=== PATIENT | male | born 1950 | race Caucasian/White ===

== ENCOUNTER → 2019-05-10 14:29 | Outpatient (CLI) | payer MEDICARE, OTHER, SELFPAY ==
--- NOTE | ~2019-05-10 | XR_ITS ---
XR chest 2V 05/10/2019 14:54 Indication: Ammonia. Dyspnea. Procedure: 2 view chest Comparison: Comparison to multiple prior studies sequentially, with oldest reviewed study dated 03/08. Findings: Borderline heart size. Bibasilar infiltrates. Possible small effusions. The lungs are hyper inflated which is consistent with, but not diagnostic of chronic obstructive pulmonary disease. No pn eumothorax. No acute osseous abnormality. There is atherosclerosis of the aorta. Impression: 1: Bibasilar infiltrates may represent atelectasis and/or pneumonia. Reviewed, dictated and finalized at location B. ADER Impression: 1: Bibasilar infiltrates may represent atelectasis and/or pneumonia.
== END ==
PROVIDERS: Visit Provider Physician Assistant
DX: J18.9 Pneumonia, unspecified organism (principal); R91.8 Other nonspecific abnormal finding of lung field
CPT/HCPCS: 71046

== ENCOUNTER 2019-08-04 07:24 | Observation (INO) | payer MEDICARE, SELFPAY ==
[2019-08-04] VITALS (15 sets, daily range): BP systolic 103–161; BP diastolic 67–81; PULSE 76–114; RESP 18–28; TEMP 36.6–37.7; O2SAT 93–100; BMI 28.5
--- NOTE | ~2019-08-04 | XR_ITS ---
EXAMINATION: XR chest 2V DATE: 08/04/2019 08:05 INDICATION: Cough and shortness of breath. TECHNIQUE: Frontal and lateral views of the chest were obtained. COMPARISON: Chest 2 views 04/05/2019, chest CT 04/06/2019 FINDINGS: There are mild airspace opacities in the lower lung zones. No pleural effusion or pneumotho rax. The heart size is normal. IMPRESSION: 1. Stable mild airspace opacities in the lower lung zones, consistent with atelectasis versus pneumon ia. Reviewed, dictated and finalized at location A. W[employer] ENGINEERING SPECIALIST IMPRESSION: 1. Stable mild airspace opacities in the lower lung zones, consistent with atel ectasis versus pneumonia.
--- NOTE | 2019-08-04 07:39 | ECG_ITS ---
Measurements Intervals [place] Rate: 112 P: NC: 0 QRS: -23 QRSD: 102 T: 73 QT: 287 QTc: 392 Interpretive Statements ATRIAL FIBRILLATION WITH RAPID VENTRICULAR RESPONSE VENTRICULAR COUPLET AND VENTRICULAR PREMATURE COMPLEXES BORDERLINE R WAVE PROGRESSION, ANTERIOR LEADS NONSPECIFIC ST & T-WAVE ABNORMALITY- LATERAL LEADS BASELINE ARTIFACT- II, III, V3, V5 ABNORMAL ECG Electronically Signed On 08-04-2019 9:29:05 PAY AGENT by Shane Snowden D.O.
[2019-08-04 07:56] LABS: Basophils Percent Auto 0.4 % (0.2-1.2); Eosinophils Absolute Auto 0.3 K/mm3 (0-0.3); Eosinophils Percent Auto 3.2 % (0-4.4); Hematocrit 39.9 % (42.0-52.0); Hemoglobin 12.3 g/dL (14.0-18.0); Immature Granulocyte Absolute 0.08 K/mm3 (0.00-0.031); Immature Granulocyte Percent A 0.8 % (0-0.5); Lymphocytes Absolute Auto 0.44 K/mm3 (0.9-3.2); Lymphocytes Percent Auto 4.2 % (18.3-44.2); Mean Corpuscular HGB Conc 30.8 g/dl (32-36); Mean Corpuscular Hemoglobin 26.7 pg (26-34); Mean Corpuscular Volume 86.7 fl (80-100); Mean Platelet Volume 12.5 fl (7.4-10.4); Monocytes Absolute Auto 0.8 K/mm3 (0.1-0.6); Monocytes Percent Auto 7.5 % (2.6-8.5); Neutrophils Absolute Auto 8.9 K/mm3 (1.3-6.7); Neutrophils Percent Auto 83.9 % (45.5-73.1); Platelet Count Result 158 k/mm3 (150-375); Red Cell Distribution Width 16.8 % (11.5-14.5); White Blood Count 10.6 K/mm3 (4.5-10.0)
[2019-08-04 08:04] LABS: Blood Urea Nitrogen 35 mg/dL (9-20); Calcium 9.5 mg/dL (8.4-10.2); Carbon Dioxide 27 mmol/L (22-30); Chloride 98 mmol/L (98-107); Estimated Glomerular Filt Rate 55; Glucose 135 mg/dL (75-110); Potassium 4.2 mmol/L (3.4-5.0); Sodium 138 mmol/L (137-145)
[2019-08-04] MEDS: methylPREDNISolone SOD SUCC 125 MG VIAL IV PUSH (08:21)
[2019-08-04] MEDS: ALBUTEROL SULFATE NEB 2.5 MG/0.5 ML INH 5 MG INHALATION ×3 (08:46→20:48)
[2019-08-04] MEDS: IPRATROPIUM BR 0.02% INH SOLN 0.5 MG/2.5 ML VIAL INHALATION ×3 (08:46→20:48)
--- NOTE | 2019-08-04 09:16 | ED.SOB ---
HPI - SOB/Dyspnea General Chief Complaint: Shortness of Breath/Dyspnea Stated Complaint: sob Time Seen by Provider: 08/04/19 07:42 History of Present Illness HPI Narrative: Patient is a 68-year-old male who presents the ER with shortness of breath worsening over last 2 days. Associated with fevers and chills as well as body aches. No known sick contacts. Reports productive cough as well as rhinorrhea. He did receive his flu shot. Not typically oxygen dependent. Shortness of breath worsened with any sort of exertion. Patient does have history of COPD and CHF. Related Data Home Medications Medication Instructions Recorded Confirmed acetaminophen 650 mg PO Q4H PRN 04/05/19 08/04/19 budesonide-formoterol [Symbicort] 2 puff INHALATION Q12H 04/05/19 08/04/19 diphenhydramine HCl [Benadryl] 25 mg PO Q12H PRN 04/05/19 08/04/19 ergocalciferol (vitamin D2) 50,000 unit PO WEEKLY 04/05/19 08/04/19 ferrous sulfate 324 mg PO BID 04/05/19 08/04/19 omeprazole 40 mg PO DAILY 04/05/19 08/04/19 tamsulosin [Flomax] 0.4 mg PO DAILY 04/05/19 08/04/19 baclofen 10 mg tablet 10 mg PO DAILY tablet 04/10/19 08/04/19 aspirin 81 mg tablet,delayed 81 mg PO DAILY 05/21/19 08/04/19 release bumetanide 0.5 mg tablet 0.5 mg PO BID 05/21/19 08/04/19 tiotropium bromide 2.5 2 inhalation INHALATION QAM 05/21/19 08/04/19 mcg/actuation mist for inhalation triamcinolone acetonide 0.1 % 1 applic TOPICAL DAILY 05/21/19 08/04/19 topical cream vitamin B12 500 mcg-folic acid 400 1 tablet PO DAILY 05/21/19 08/04/19 mcg tablet cetirizine 10 mg PO DAILY 08/04/19 08/04/19 doxycycline hyclate [Vibramycin] 100 mg PO DAILY 08/04/19 08/04/19 hydroxyzine HCl 10 mg PO HS PRN 08/04/19 08/04/19 metoprolol succinate 50 mg PO DAILY 08/04/19 08/04/19 nystatin 1 applic TOPICAL PRN PRN 08/04/19 08/04/19 potassium chloride 20 meq PO DAILY 08/04/19 08/04/19 Allergies Allergy/AdvReac Type Severity Reaction Status Date / Time Penicillins Allergy Intermediate Skin Verified 08/04/19 07:51 Reaction scopolamine Allergy Mild Confusion Verified 08/04/19 07:51 pepper (genus Capsicum) AdvReac Intermediate Nausea and Verified 08/04/19 07:49 Vomiting levofloxacin AdvReac Mild Swelling Verified 08/04/19 07:51 of the Eye Review of Systems Constitutional: Constitutional: Reports chills, Reports fatigue and Reports fever(s) ENT: Reports nasal congestion and Denies sore throat Cardiovascular: Cardiovascular: Denies chest pain Respiratory: Respiratory: Reports cough, Reports dyspnea and Reports wheezing Gastrointestinal: Gastrointestinal: Denies abdominal pain, Denies nausea and Denies vomiting PMFSH Past Medical History Medical History (Updated 08/04/19 @ 09:17 by Constantino Corbett MD) Abscess BiPAP (biphasic positive airway pressure) dependence BPH (benign prostatic hyperplasia) CHF (congestive heart failure) Chronic diastolic heart failure Cirrhosis COPD (chronic obstructive pulmonary disease) GERD (gastroesophageal reflux disease) MRSA (methicillin resistant Staphylococcus aureus) infection Pneumothorax on left Sleep apnea Surgical History Surgical History (Updated 04/29/19 @ 01:02 by Maya Hayden) History of hip replacement on spine History of revision of total replacement of hip joint Social History Social History Smoking status: Former smoker Smoking end date: 06/06/81 Alcohol intake: former Substance use: never Gender identity (if verbalized by the patient): Male Spiritual care concerns: No Agree to blood products: Yes Exam Narrative: Exam Narrative: GENERAL: ill-appearing, well-nourished, and in mild distress. HEAD: Normocephalic, atraumatic. ENT: Mucous membranes moist. CHEST: Faint diffuse wheezing with frequent coughing. No respiratory distress. HEART: Tachycardic and regular. Normal peripheral pulses. ABDOMEN: Soft, nontender, nondistended. EXTREMITIES:
[2019-08-04 10:11] LABS: Add Urine Microscopic? YES; Appearance Urine Clear (Clear); Bilirubin Urine Negative (Negative); Blood Urine 2+ (Negative); Color Urine Straw (Yellow); Glucose Urine UA Negative (Negative); Ketones Urine Negative (Negative); Leukocyte Esterase Ur Negative LEU/UL (Negative); Mucus Urine Rare /lpf; Nitrate Urine Negative (Negative); Protein Urine Negative (Negative); Urobilinogen Urine Negative mg/dL (<2.0); WBC Urine 0-3 /hpf
--- NOTE | 2019-08-04 10:16 | PC.NURSE ---
This patient, Mason Keys, was admitted to Medical Room 345-01. Patient/family oriented to hospital policies and general routines including ID bracelet, bed and alarms, visiting hours, pain management, procedures, bathroom and other care routines, personal items, smoking policy, room service/diet, and visiting hours. Valuables list has been completed. Information on how to activate the Rapid Response Team has been discussed. Patient/Family are encouraged to report perceived risks to care and to ask questions if they do not understand what they are told or what they should do.
[2019-08-04] MEDS: methylPREDNISolone SOD SUCC 125 MG VIAL 60 MG IV PUSH ×3 (12:00→23:28)
[2019-08-04 12:33] LABS: Glucose Point of Care 132 (65-105)
[2019-08-04] MEDS: FERROUS SULFATE 324 MG TABLET PO (17:40)
[2019-08-04] MEDS: BUMETANIDE 0.5 MG TABLET PO (17:40)
[2019-08-04] MEDS: APIXABAN 5 MG TABLET PO (17:40)
[2019-08-04 18:19] LABS: Glucose Point of Care 147 (65-105)
--- NOTE | 2019-08-04 19:46 | PM.IMHP ---
H&P: HPI History of Present Illness Chief complaint: Cough and shortness of breath for the past 2 days+ Narrative: This is a pleasant 68 year old male with known history of chronic respiratory failure of 1 L of oxygen at night as well as Bipap, COPD, CHF, chronic atrial fibrillation on Eliquis and multiple MRSA infections who presented to the hospital with worsening shortness of breath over the past 2 days, wheezing, and coughing. He reports fevers that started yesterday and has had worsening coughing that has now become productive w/ yellowish sputum. He also reports generalized weakness. 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 His right hip abscesses have not changed and he was told that he should follow up with his orthopedic surgeon in one year. He reports that while he was in the waiting room at [facility] this past week he noticed various patients were coughing nonstop. Tonight the patient denies any chest pain, headache, sore throat, ear pain, palpitations, abdominal pain, dysuria, hematuria, diarrhea, nasuea, vomiting or rectal bleeding. The patient was evaluated in the ER today. CXR obtained today when compared with previous CXR from May 2019 is virtually unchanged. The patient tested positive for Influenza A. The patient is chronically on Doxycline as he has had a history of multiple MRSA infections. He has no other complaints. Review of Systems Review of Systems: All systems reviewed & are unremarkable except as noted in HPI and below PMFSH Past Medical History Medical History (Updated 08/04/19 @ 20:12 by Poncho Dupree MD) Abscess BiPAP (biphasic positive airway pressure) dependence BPH (benign prostatic hyperplasia) CHF (congestive heart failure) Chronic diastolic heart failure Cirrhosis COPD (chronic obstructive pulmonary disease) GERD (gastroesophageal reflux disease) MRSA (methicillin resistant Staphylococcus aureus) infection Pneumothorax on left Sleep apnea Surgical History Surgical History History of hip replacement on spine History of revision of total replacement of hip joint Family History Family History Mother Family history of cardiovascular disease Family history of coronary artery disease Father Family history of liver disease Social History Social History Smoking status: Former smoker Smoking end date: 06/06/81 Alcohol intake: former Substance use: never Gender identity (if verbalized by the patient): Male Spiritual care concerns: No Agree to blood products: Yes Meds Home Medications and Allergies Home Medications Medication Instructions Recorded Confirmed Type acetaminophen 650 mg PO Q4H PRN 04/05/19 08/04/19 History budesonide-formoterol [Symbicort] 2 puff INHALATION Q12H 04/05/19 08/04/19 History diphenhydramine HCl [Benadryl] 25 mg PO Q12H PRN 04/05/19 08/04/19 History ergocalciferol (vitamin D2) 50,000 unit PO WEEKLY 04/05/19 08/04/19 History ferrous sulfate 324 mg PO BID 04/05/19 08/04/19 History omeprazole 40 mg PO DAILY 04/05/19 08/04/19 History tamsulosin [Flomax] 0.4 mg PO DAILY 04/05/19 08/04/19 History baclofen 10 mg tablet 10 mg PO DAILY tablet 04/10/19 08/04/19 History albuterol sulfate 2.5 mg/0.5 mL 2.5 mg INHALATION QID PRN 30 Days 04/24/19 08/04/19 Rx solution for nebulization #60 ml aspirin 81 mg tablet,delayed 81 mg PO DAILY 05/21/19 08/04/19 History release benzonatate 100 mg capsule 100 mg PO TID PRN #90 cap 05/21/19 08/04/19 Rx bumetanide 0.5 mg tablet 0.5 mg PO BID 05/21/19 08/04/19 History tiotropium bromide 2.5 2 inhalation INHALATION QAM 05/21/19 08/04/19 History mcg/actuation mist for inhalation
[2019-08-04] MEDS: GUAIFENESIN/DEXTROMETHORPHAN 10 ML UDC PO (20:27)
[2019-08-05] VITALS (7 sets, daily range): BP systolic 116; BP diastolic 65; PULSE 74–84; RESP 16–20; TEMP 36.4; O2SAT 92–96
[2019-08-05] MEDS: GUAIFENESIN/DEXTROMETHORPHAN 10 ML UDC PO ×2 (01:05→05:50)
[2019-08-05] MEDS: IPRATROPIUM BR 0.02% INH SOLN 0.5 MG/2.5 ML VIAL INHALATION ×2 (01:52→11:08)
[2019-08-05] MEDS: ALBUTEROL SULFATE NEB 2.5 MG/0.5 ML INH 5 MG INHALATION ×2 (01:52→11:08)
[2019-08-05] MEDS: methylPREDNISolone SOD SUCC 125 MG VIAL 60 MG IV PUSH ×2 (05:50→12:11)
[2019-08-05 06:14] LABS: Basophils Percent Auto 0.1 % (0.2-1.2); Hematocrit 36.7 % (42.0-52.0); Hemoglobin 11.3 g/dL (14.0-18.0); Immature Granulocyte Absolute 0.05 K/mm3 (0.00-0.031); Immature Granulocyte Percent A 0.7 % (0-0.5); Lymphocytes Absolute Auto 0.26 K/mm3 (0.9-3.2); Lymphocytes Percent Auto 3.5 % (18.3-44.2); Mean Corpuscular HGB Conc 30.8 g/dl (32-36); Mean Corpuscular Hemoglobin 26.8 pg (26-34); Mean Platelet Volume 12.3 fl (7.4-10.4); Monocytes Absolute Auto 0.3 K/mm3 (0.1-0.6); Monocytes Percent Auto 4.4 % (2.6-8.5); Neutrophils Absolute Auto 6.7 K/mm3 (1.3-6.7); Neutrophils Percent Auto 91.3 % (45.5-73.1); Platelet Count Result 163 k/mm3 (150-375); Red Blood Count 4.22 M/mm3 (4.6-6.20); Red Cell Distribution Width 16.7 % (11.5-14.5); White Blood Count 7.3 K/mm3 (4.5-10.0)
[2019-08-05 06:30] LABS: Blood Urea Nitrogen 38 mg/dL (9-20); Calcium 9.2 mg/dL (8.4-10.2); Carbon Dioxide 27 mmol/L (22-30); Chloride 99 mmol/L (98-107); Estimated CRCL calculation 47 ml/min; Estimated Glomerular Filt Rate 50; Glucose 154 mg/dL (75-110); Sodium 138 mmol/L (137-145)
[2019-08-05 07:33] LABS: Ovalocytes 1+ (NORMAL); Platelet Estimate Adequate (Adequate)
[2019-08-05] MEDS: CYANOCOBALAMIN 500 MCG TABLET PO (08:13)
[2019-08-05] MEDS: METOPROLOL SUCCINATE EXT REL 50 MG TABCR PO (08:13)
[2019-08-05] MEDS: FERROUS SULFATE 324 MG TABLET PO (08:13)
[2019-08-05] MEDS: FOLIC ACID 0.4 MG TABLET PO (08:13)
[2019-08-05] MEDS: POTASSIUM CHLORIDE 20 MEQ TABLET.ER PO (08:15)
[2019-08-05] MEDS: PANTOPRAZOLE 40 MG TABLET PO (08:15)
[2019-08-05] MEDS: ASPIRIN 81 MG ENTERIC TABLET PO (08:15)
[2019-08-05] MEDS: BUMETANIDE 0.5 MG TABLET PO (08:15)
[2019-08-05] MEDS: APIXABAN 5 MG TABLET PO (08:15)
[2019-08-05] MEDS: TAMSULOSIN HCL 0.4 MG CAPSULE PO (08:15)
[2019-08-05] MEDS: ROFLUMILAST 500 MCG TABLET PO (08:15)
[2019-08-05] MEDS: BACLOFEN 10 MG TABLET PO (08:15)
[2019-08-05] MEDS: LORATADINE 10 MG TABLET PO (08:15)
[2019-08-05] MEDS: TRIAMCINOLONE ACET 0.1% CREAM 15 GM TUBE 1 APPLIC TOPICAL (08:16)
[2019-08-05] MEDS: DOXYCYCLINE HYCLATE 100 MG TABLET PO (10:58)
--- NOTE | 2019-08-05 18:55 | PM.DS ---
DS: Diagnosis Admitting Diagnosis Admitting Diagnosis: Influenza due to other identified influenza virus with other respiratory manifestations Discharge Diagnosis (1) Influenza A: Code(s): J10.1 - Influenza due to other identified influenza virus with other respiratory manifestations Status: Acute Assessment and Plan: Date of Service 08/05/19 Mr. Keys is a pleasant 68yo gentleman with history of COPD and chronic hypoxemic respiratory failure (on 1 L home O2 at night with BiPAP) who presented to the ED for evaluation of cough, shortness of breath, fevers and fatigue. He tested positive for Influenza A in the ED. He was admitted for observation overnight and treated supportively with nebulized bronchodilators. He was started on IV solu-medrol in the ER and discharged with a tapered course of prednisone. He did not require any increased oxygen over his normal requirement and was tolerating room air the following morning. CXR showed stable airspace opacities and actually looks improved compared to a chest XR from 05/2019; he is not felt to have a bacterial pneumonia. Cr mildly elevated at 1.4, may be secondary to decreased oral intake in his acute illness; repeat BMP outpatient. He continues to have coarse breath sounds and a productive cough and he was advised that he will likely continue to have these symptoms for several days. He was educated on return to ED instructions if his shortness of breath becomes worse and not relieved by his home nebulizers. He was instructed to follow up with PCP in 1 week. He was hemodynamically stable for discharge 08/05/19 with his home respiratory regimen plus mucinex. (2) Chronic hypoxemic respiratory failure: Code(s): J96.11 - Chronic respiratory failure with hypoxia Status: Chronic Assessment and Plan: Continue home night time oxygen of 1L/min via NC. (3) COPD (chronic obstructive pulmonary disease): Qualifiers: COPD type: unspecified COPD Qualified Code(s): J44.9 - Chronic obstructive pulmonary disease, unspecified Code(s): J44.9 - Chronic obstructive pulmonary disease, unspecified Status: Chronic Assessment and Plan: Continue bronchodilators. 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 He performs wound care with daily dressing changes at home and recently saw his orthopedist earlier this week. His orthopedist instructed this week that he can follow up with him in 1 year. He remains on long-term doxycycline for this. (5) Atrial fibrillation: Qualifiers: Atrial fibrillation type: unspecified Qualified Code(s): I48.91 - Unspecified atrial fibrillation Code(s): I48.91 - Unspecified atrial fibrillation Status: Chronic Assessment and Plan: Rate controlled on his home metoprolol and maintained on home Eliquis therapy. (6) Hx MRSA infection: Code(s): Z86.14 - Personal history of Methicillin resistant Staphylococcus aureus infection Status: Chronic Assessment and Plan: Continue doxycycline PO. DS: Summary Time Spent with Patient Time attestation: Total time spent providing and/or coordinating discharge services: 35 minutes Exam Narrative: Exam Narrative: General: Male sitting on edge of bed in no acute distress. HEENT: Normocephalic, EOMI, oral mucosa moist. Cardiovascular: Rate and rhythm are regular. Respiratory: Diffuse inspiratory and expiratory rhonchi. Respirations even and nonlabored, tolerating room air. Productive cough noted on exam. Abdomen: Soft, non-tender, non-distended, bowel sounds present. Extremities: Peripheral pulses intact.
== END 2019-08-05 13:50 | disposition home or self-care (01) ==
LOC: ANHED 09:23 → ANH3MED 09:33
PROVIDERS: Family Medicine; Admitting Provider Family Medicine; Emergency Provider Emergency Medicine; PCP Family Medicine; Visit Provider Family Medicine
DX: J10.1 Influenza due to other identified influenza virus with other respiratory manifestations (principal); J96.11 Chronic respiratory failure with hypoxia; J44.9 Chronic obstructive pulmonary disease, unspecified; L02.415 Cutaneous abscess of right lower limb; Z86.14 Personal history of Methicillin resistant Staphylococcus aureus infection; I48.20 Chronic atrial fibrillation, unspecified; I50.32 Chronic diastolic (congestive) heart failure; G47.30 Sleep apnea, unspecified; Z79.01 Long term (current) use of anticoagulants; Z79.82 Long term (current) use of aspirin; Z79.899 Other long term (current) drug therapy; Z87.891 Personal history of nicotine dependence; Z88.0 Allergy status to penicillin; Z88.1 Allergy status to other antibiotic agents; Z99.89 Dependence on other enabling machines and devices
CPT/HCPCS: 36415; 71046; 80048; 81001; 85025; 87081; 87804; 93005; 94640; 96374; 96376; 99285; A9270; G0378; J2930

== ENCOUNTER → 2019-08-20 15:51 | Outpatient (CLI) | payer MEDICARE, SELFPAY ==
--- NOTE | ~2019-08-20 | XR_ITS ---
EXAMINATION: XR chest 2V DATE: 08/20/2019 16:06 INDICATION: Shortness of breath TECHNIQUE: Frontal and lateral views of the chest are obtained COMPARISON: 08/04/2019 FINDINGS: Bilateral lower lobe airspace opacities have nearly completely resolved. There is no pleura l effusion or pneumothorax. The cardiomediastinal silhouette is normal. There are bridging osteophyte s at multiple levels in the spine, consistent with diffuse idiopathic skeletal hyperostosis (DISH). IMPRESSION: 1. Near complete resolution of airspace opacities in the lower lobes, consistent with resolving atele ctasis versus pneumonia. Reviewed, dictated and finalized at location A. IMPRESSION: 1. Near complete resolution of airspace opacities in the lower lobes, consisten t with resolving atelectasis versus pneumonia.
== END ==
PROVIDERS: PCP Family Medicine; Visit Provider Nurse Practitioner Family
DX: R06.02 Shortness of breath (principal); R91.8 Other nonspecific abnormal finding of lung field
CPT/HCPCS: 71046

== ENCOUNTER 2019-12-24 10:57 | Inpatient (IN) | payer MEDICARE, SELFPAY ==
[2019-12-24] VITALS (9 sets, daily range): BP systolic 130–153; BP diastolic 75–100; PULSE 33–90; RESP 12–20; TEMP 36.4–36.6; O2SAT 94–100
--- NOTE | ~2019-12-24 | XR_ITS ---
XR chest 1V DATE: 12/24/2019 12:50 INDICATION: COPD. Recent fall and back pain, back spasms. TECHNIQUE: 2 AP views COMPARISON: 08/20/2019 2 view chest 02/07/2018 two-view chest 04/06/2019 CT chest FINDINGS: Borderline heart size. Aortic calcification. No hilar or mediastinal enlargement is evident . There is chronic increased density overlying the right first costochondral junction which is due to p rominent hypertrophic spurring at this location documented on 04/06/2019 CT thorax examination review. There is chronic mild blunting of the left, chronic ankle No pulmonary infiltrate or consolidation, pleural effusion, pulmonary vascular congestion or pneumoth orax is evident. There is suggestion of a vascular stent overlying the terminal aorta. Diffuse osteopenia. Degenerative changes of the thoracic and lumbar spine. IMPRESSION: No active pulmonary disease Reviewed, dictated and finalized at location B. IMPRESSION: No active pulmonary disease
--- NOTE | ~2019-12-24 | CT_ITS ---
EXAMINATION: CT abdomen pelvis w con EXAM DATE: 12/24/2019 14:18 INDICATION: Fall, left-sided back pain, left lower quadrant abdominal pain. TECHNIQUE: Spiral CT of the abdomen and pelvis was performed following intravenous injection of 100 m L Omnipaque 350. Axial, coronal and sagittal images were reviewed. The dose-length product (DLP) fo r this examination was 1453.39 mGy-cm. The exposure was tailored according to patient size (auto mA exposure control), and iterative reconstruction (ASIR) was used as additional dose reduction techniqu e. There is no prior study for comparison. FINDINGS: There is horizontal fracture through the anterior aspect of the T12 vertebral body best see n on the sagittal sequence, finding indicated. There is sclerosis of the fracture margin, or perineph anand response, indicating probable subacute finding, no adjacent paraspinal hematoma or fat stranding. No middle or posterior column involvement. Mild diffuse loss of vertebral body heights. The liver, spleen, adrenal glands and pancreas are unremarkable. The gallbladder is distended but ot herwise unremarkable. There is no biliary duct dilation. Portal and splenic veins are patent. Kidn eys enhance symmetrically. There is no hydronephrosis. There is mild bilateral renal atrophy. There is mild prostatomegaly. Evaluation of prostate and bladder is limited from dense metallic artifact f rom bilateral hip replacements. There is no retroperitoneal or pelvic lymphadenopathy. There is mi ld to moderate scattered arteriosclerotic disease. The appendix is not positively visualized. There is no pericecal inflammatory change to suggest appe ndicitis. The stomach and small bowel are unremarkable. The ascending colon is distended with stoo l, otherwise small to moderate amount of colonic stool. There is mild sigmoid colonic diverticulosis. There is no adjacent inflammatory change to suggest diverticulitis. No free intraperitoneal gas. The heart is normal in size. There are no pericardial or pleural effusions. The lung bases are unr emarkable. There are no osteoblastic or osteolytic lesions identified. IMPRESSION: 1. No acute intra-abdominal findings. 2. Subacute T12 anterior cortex, column fracture. Reviewed, dictated and finalized at location A.
--- NOTE | ~2019-12-24 | XR_ITS ---
XR hip BI 2V w AP pelvis DATE: 12/24/2019 12:50 INDICATION: Bilateral hip pain TECHNIQUE: AP pelvis. AP and lateral views of both hips. COMPARISON: None FINDINGS: There is diffuse osteopenia. There is levoscoliosis and multi-level degenerative disc disease of the lumbar spine. Apparent interbody spinal fusion device at L1-2. The pubic symphysis and sacral iliac joints are intact. No pelvic fracture or bone destruction is det ected. Status post bilateral total hip arthroplasty. No fracture or dislocation or bone destruction of eithe r hip is detected. No hardware failure or displacement is detected. IMPRESSION: Status post bilateral total hip arthroplasty Apparent interbody spinal fusion at L1-L2 Diffuse osteopenia Levoscoliosis and multilevel degenerative disc disease of the lumbar spine Reviewed, dictated and finalized at location B.
--- NOTE | ~2019-12-24 | MR_ITS ---
EXAMINATION: MR lumbar spine wo con DATE: 12/25/2019 12:22 INDICATION: T12 fracture. TECHNIQUE: Magnetic resonance imaging (MRI) of the lumbar spine was performed without intravenous con trast. Sequences included sagittal T2-weighted FSE, sagittal T2-weighted FS FSE, sagittal T1-weighted FSE, and axial T2-weighted FSE. COMPARISON: CT abdomen and pelvis 12/24/2019, lumbar spine MRI 12/06/2017, chest 2 views 08/20/2019 FINDINGS: There is 15 degrees levoscoliosis of lumbar spine. There is 3 mm retrolisthesis of L1 on L2 , L2 on L3, and L3 on L4 and 4 mm anterolisthesis of L4 on L5. There are changes of healed anterior f usion procedure at L1-L2 with interbody device. There is a fracture of anterior superior endplate of T12 with 5 mm distraction, bone marrow edema, and fluid in the cleft. There is mildly decreased disc height at T12-L1 and severely decreased disc height from L2 2-L3 through L4-L5. The distal spinal cor d signal intensity is normal. The conus medullaris is at T12-L1. The following disc levels are specif ically discussed: L1-L2: There is moderate bilateral facet joint osteoarthritis. There is moderate right and mild left neural foraminal stenosis. There is mild central canal stenosis. L2-L3: The disc is bulging. There is severe bilateral facet joint osteoarthritis. There is moderate r ight and mild left neural foraminal stenosis. There is mild central canal stenosis. L3-L4: The disc is bulging. There is severe bilateral facet joint osteoarthritis. There is moderate b ilateral neural foraminal stenosis. There is mild central canal stenosis. L4-L5: The disc is bulging and has an annular fissure. There is severe bilateral facet joint osteoart hritis. There is mild right and moderate left neural foraminal stenosis. There is mild central canal stenosis. L5-S1: There is a central protrusion. There is severe bilateral facet joint osteoarthritis. There is mild bilateral neural foraminal stenosis. There is mild central canal stenosis. IMPRESSION: 1. Acute versus subacute distraction fracture of T12 superior endplate. 2. Severe lumbar spondylosis. 3. Anterior fusion procedure at L1-L2. 4. Lumbar levoscoliosis. Reviewed, dictated and finalized at location A.
[2019-12-24] MEDS: ONDANSETRON INJ 4 MG/2 ML VIAL IV PUSH (12:48)
[2019-12-24] MEDS: MORPHINE SULFATE 4 MG/ML INJ 6 MG IV PUSH (12:48)
--- NOTE | 2019-12-24 12:53 | ED.GENADULT ---
HPI - General Adult General Chief complaint: Fall Stated complaint: fall, l side, back pain Time Seen by Provider: 12/24/19 12:00 Source: patient and family Mode of arrival: ambulatory Limitations: no limitations History of Present Illness HPI narrative: This patient is a 69 year old male with multiple medical problems who presents for evaluation of left lower abdominal pain. Patient states he has had pain to left lower abdomen since last Tuesday. He describes pain as spasms that are gradually worsening. He has a severe spasm on Tuesday and this pain caused him to fall. He states he fell onto the piano stool on right side. He denies hitting his head or LOC. He denies nausea and vomiting. He and his are concerned because he has not had a bowel movement since Tuesday. His passing gas. He has taken miralax, stool softener without relief. His also stopped giving his iron due to his constipation. He denies history of diverticulitis or kidney stone. Related Data Home Medications Medication Instructions Recorded Confirmed acetaminophen 650 mg PO Q4H PRN 04/05/19 12/18/19 budesonide-formoterol [Symbicort] 2 puff INHALATION Q12H 04/05/19 12/18/19 ferrous sulfate 324 mg PO BID 04/05/19 12/18/19 omeprazole 40 mg PO DAILY 04/05/19 12/18/19 tamsulosin [Flomax] 0.4 mg PO DAILY 04/05/19 12/18/19 baclofen 10 mg tablet 10 mg PO DAILY tablet 04/10/19 12/18/19 aspirin 81 mg tablet,delayed 81 mg PO DAILY 05/21/19 12/18/19 release bumetanide 0.5 mg tablet 0.5 mg PO BID 05/21/19 12/18/19 tiotropium bromide 2.5 2 inhalation INHALATION QAM 05/21/19 08/13/19 mcg/actuation mist for inhalation vitamin B12 500 mcg-folic acid 400 1 tablet PO DAILY 05/21/19 08/13/19 mcg tablet cetirizine 10 mg PO DAILY 08/04/19 12/18/19 doxycycline hyclate [Vibramycin] 100 mg PO DAILY 08/04/19 12/18/19 metoprolol succinate 50 mg PO DAILY 08/04/19 12/18/19 nystatin 1 applic TOPICAL PRN PRN 08/04/19 12/18/19 Allergies Allergy/AdvReac Type Severity Reaction Status Date / Time Penicillins Allergy Intermediate Skin Verified 12/18/19 10:35 Reaction scopolamine Allergy Mild Confusion Verified 12/18/19 10:35 tobramycin Allergy Mild Unknown Verified 12/18/19 10:35 pepper (genus Capsicum) AdvReac Intermediate Nausea and Verified 12/18/19 10:35 Vomiting levofloxacin AdvReac Mild Swelling Verified 12/18/19 10:35 of the Eye Review of Systems Review of Systems: All systems reviewed & are unremarkable except as noted in HPI and below Constitutional: Constitutional: Denies chills and Denies fever(s) Gastrointestinal: Gastrointestinal: Reports abdominal pain and Reports constipation Genitourinary: Genitourinary: Reports no additional male genitourinary complaints Musculoskeletal: Musculoskeletal: Reports arthralgias Neurologic: Denies headache(s) and Denies focal weakness PMFSH Past Medical History Medical History Abscess BiPAP (biphasic positive airway pressure) dependence BPH (benign prostatic hyperplasia) CHF (congestive heart failure) Chronic diastolic heart failure Cirrhosis COPD (chronic obstructive pulmonary disease) GERD (gastroesophageal reflux disease) MRSA (methicillin resistant Staphylococcus aureus) infection Pneumothorax on left Sleep apnea Surgical History Surgical History History of hip replacement on spine History of revision of total replacement of hip joint Social History Social History Smoking status: Former smoker Smoking end date: 06/06/81 Alcohol intake: former Substance use: never Gender identity (if verbalized by the patient): Male Spiritual care concerns: No Agree to blood products: Yes Exam Const: General: no acute distress and alert Orientation/consciousness: patient oriented x3 HENMT: Head: normocepha
[2019-12-24 13:02] LABS: Add Urine Microscopic? NO; Appearance Urine Clear (Clear); Bilirubin Urine Negative (Negative); Blood Urine Negative (Negative); Color Urine Straw (Yellow); Glucose Urine UA Negative (Negative); Ketones Urine Negative (Negative); Leukocyte Esterase Ur Negative LEU/UL (Negative); Nitrate Urine Negative (Negative); Protein Urine Negative (Negative); Specific Grav Ur 1.014 (1.001-1.035); Urobilinogen Urine Negative mg/dL (<2.0)
[2019-12-24 13:37] LABS: Basophils Absolute Auto 0.1 K/mm3 (0.0-0.1); Basophils Percent Auto 0.6 % (0.2-1.2); Eosinophils Absolute Auto 0.5 K/mm3 (0-0.3); Eosinophils Percent Auto 5.7 % (0-4.4); Hematocrit 42.4 % (42.0-52.0); Hemoglobin 13.5 g/dL (14.0-18.0); Immature Granulocyte Absolute 0.05 K/mm3 (0.00-0.031); Immature Granulocyte Percent A 0.6 % (0-0.5); Immature Platelet Fraction Pct 12.3 % (0.9-11.2); Lymphocytes Percent Auto 7.7 % (18.3-44.2); Mean Corpuscular HGB Conc 31.8 g/dl (32-36); Mean Corpuscular Hemoglobin 28.9 pg (26-34); Mean Corpuscular Volume 90.8 fl (80-100); Mean Platelet Volume 13.3 fl (7.4-10.4); Monocytes Absolute Auto 0.9 K/mm3 (0.1-0.6); Monocytes Percent Auto 9.4 % (2.6-8.5); Neutrophils Absolute Auto 6.9 K/mm3 (1.3-6.7); Platelet Count Result 139 k/mm3 (150-375); Red Blood Count 4.67 M/mm3 (4.6-6.20); Red Cell Distribution Width 15.4 % (11.5-14.5); White Blood Count 9.1 K/mm3 (4.5-10.0)
[2019-12-24 13:48] LABS: Alanine Aminotransferase 25 U/L (4-50); Alkaline Phosphatase 147 U/L (38-126); Aspartate Amino Transferase 25 U/L (17-59); Bilirubin,Total 0.7 mg/dL (0.2-1.3); Blood Urea Nitrogen 34 mg/dL (9-20); Calcium 9.2 mg/dL (8.4-10.2); Carbon Dioxide 27 mmol/L (22-30); Chloride 100 mmol/L (98-107); Estimated CRCL calculation 52 ml/min; Estimated Glomerular Filt Rate 46; Glucose 118 mg/dL (75-110); INR 1.2; Lipase 50 U/L (23-300); Potassium 4.6 mmol/L (3.4-5.0); Prothrombin Time 14.7 Seconds (11.1-14.7); Sodium 136 mmol/L (137-145)
[2019-12-24 13:49] LABS: Lactic Acid Reflex 0.9 mmol/L (0.7-2.1); Partial Thromboplastin Time 28.6 SECONDS (22.3-36.8)
--- NOTE | 2019-12-24 22:24 | ADMGEN ---
This patient, Mason Keys, was admitted to Medical Room 245-. Patient/family oriented to hospital policies and general routines including ID bracelet, bed and alarms, visiting hours, pain management, procedures, bathroom and other care routines, personal items, smoking policy, room service/diet, and visiting hours. Valuables list has been completed. Information on how to activate the Rapid Response Team has been discussed. Patient/Family are encouraged to report perceived risks to care and to ask questions if they do not understand what they are told or what they should do.
[2019-12-24] MEDS: KETOROLAC 15 MG/ML VIAL (*BKC) IV PUSH (22:48)
[2019-12-24] MEDS: WATER FOR IRRIGATION, STERILE 1,000 ML BOTTLE 1000 ML (22:51)
--- NOTE | 2019-12-24 23:49 | PM.IMHP ---
H&P: HPI History of Present Illness Chief complaint: T12 vertebral fracture. Intractable pain Narrative: Mason Keys is a 69 year old male who has had a past history of having back surgery in the past. The patient has been having left lower quadrant abdominal pain. Since this past Tuesday. Said that the pain has been gradual. He has been having severe muscle pains and has been taking baclofen for that and this pain caused him to fall. He fell onto the panel stool in his right side. He denies hitting his head or losing consciousness. The patient has not had any fever chills. No nausea vomiting or diarrhea the patient stated he has not had a stools since this past Tuesday. CT scan of the abdomen and pelvis was read as no acute intra abdomenal findings. Subacute T12 anterior cortex, common fracture. The ER physician spoke with [facility] neural surgery spine about the CT scan and states that his most likely chronic and if the patient is having a lot of pain he be placed in a TLSO brace to wear and then just follow-up with him outpatient slu spine #[phone]. Has had a history of MRSA and several areas including his spine and his lung and is chronically on antibiotics. The patient was given Zofran, IV Tylenol, IV morphine, IV Dilaudid in the ER and I gave him IV Toradol once he came to the floor. Date of service 12/24/2019 Review of Systems Review of Systems: All systems reviewed & are unremarkable except as noted in HPI and below Constitutional: Constitutional: Reports as per HPI and Reports no additional constitutional complaints Eyes: Eyes: Reports as per HPI and Reports no additional eye complaints ENT: Reports system reviewed and no additional complaints, except as documented and Reports Normal hearing present Cardiovascular: Cardiovascular: Reports no additional cardiovascular complaints Respiratory: Respiratory: Reports no additional respiratory complaints and Reports no additional respiratory complaints Gastrointestinal: Gastrointestinal: Reports as per HPI and Reports no additional gastrointestinal complaints Musculoskeletal: Musculoskeletal: Reports no additional musculoskeletal complaints Integumentary/Breasts: Skin/Breast: Reports system reviewed and no additional complaints, except as docu and Reports as per HPI Neurologic: Reports system reviewed and no additional complaints, except as documented, Reports as per HPI and Reports Normal hearing present Psychiatric: Psychiatric: Reports no additional psychiatric complaints and Reports as per HPI Endocrine: Endocrine: Reports no additional endocrine complaints Hematologic/Lymphatic: Hematologic/Lymphatic: Reports no additional hematologic/lymphatic complaints Allergic/Immunologic: Allergic/Immunologic: Reports no additional allergic/immunologic complaints FORMERLY [facility], [facility] Past Medical History Medical History (Updated 12/25/19 @ 00:17 by Nora Dawn NP) Abscess Atrial fibrillation BiPAP (biphasic positive airway pressure) dependence BPH (benign prostatic hyperplasia) CHF (congestive heart failure) Chronic diastolic heart failure Cirrhosis COPD (chronic obstructive pulmonary disease) GERD (gastroesophageal reflux disease) History of CVA (cerebrovascular accident) History of DVT (deep vein thrombosis) Lipoma Extracted from his neck MRSA (methicillin resistant Staphylococcus aureus) infection The patient had a spinal abscess L1-L2 complicated was septicemia and then had 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 Pneumothorax on left Sleep apnea Family History Family History Mother Family history of cardiovascular disease Family history of coronary artery disease Father Family history of liver disease Social History Social History (Updated 12/25/19 @ 00:06 by Nora Dawn NP) Social History: He lives with his who is a durable power employment attorney for healthcare. He has 2 children. H
[2019-12-25] VITALS (7 sets, daily range): BP systolic 129–150; BP diastolic 67–84; PULSE 61–94; RESP 16–20; TEMP 36.1–36.7; O2SAT 94–99
[2019-12-25] MEDS: ACETAMINOPHEN 325 MG TABLET 650 MG PO (01:27)
[2019-12-25] MEDS: CYCLOBENZAPRINE HCL 10 MG TABLET PO ×3 (06:23→21:51)
[2019-12-25] MEDS: APIXABAN 5 MG TABLET PO ×2 (07:52→16:43)
[2019-12-25] MEDS: ASPIRIN 81 MG ENTERIC TABLET PO (07:52)
[2019-12-25] MEDS: DOCUSATE SODIUM 100 MG CAPSULE PO ×2 (07:52→20:47)
[2019-12-25] MEDS: BUMETANIDE 0.5 MG TABLET PO (07:52)
[2019-12-25] MEDS: DOXYCYCLINE HYCLATE 100 MG TABLET PO (07:52)
[2019-12-25] MEDS: FERROUS SULFATE 324 MG TABLET PO ×2 (07:52→16:43)
[2019-12-25] MEDS: PANTOPRAZOLE 40 MG TABLET PO (07:52)
[2019-12-25] MEDS: POTASSIUM CHLORIDE 20 MEQ TABLET.ER PO (07:52)
[2019-12-25] MEDS: LORATADINE 10 MG TABLET PO (07:53)
[2019-12-25] MEDS: FOLIC ACID 0.4 MG TABLET PO (07:53)
[2019-12-25] MEDS: TAMSULOSIN HCL 0.4 MG CAPSULE PO (07:53)
[2019-12-25] MEDS: TOLNAFTATE 1% POWDER 45 GM BTL 1 APPLIC TOPICAL (07:53)
[2019-12-25] MEDS: CYANOCOBALAMIN 500 MCG TABLET PO (07:53)
[2019-12-25] MEDS: METOPROLOL SUCCINATE EXT REL 50 MG TABCR PO (07:55)
[2019-12-25] MEDS: TRIAMCINOLONE ACET 0.1% CREAM 15 GM TUBE 1 APPLIC TOPICAL (07:55)
[2019-12-25 09:10] LABS: Hematocrit 45.9 % (42.0-52.0); Hemoglobin 14.1 g/dL (14.0-18.0); Mean Corpuscular HGB Conc 30.7 g/dl (32-36); Mean Corpuscular Volume 94.4 fl (80-100); Mean Platelet Volume 12.9 fl (7.4-10.4); Platelet Count Result 144 k/mm3 (150-375); Red Blood Count 4.86 M/mm3 (4.6-6.20); Red Cell Distribution Width 15.3 % (11.5-14.5); White Blood Count 9.2 K/mm3 (4.5-10.0)
[2019-12-25 09:21] LABS: Blood Urea Nitrogen 37 mg/dL (9-20); Calcium 9.2 mg/dL (8.4-10.2); Carbon Dioxide 25 mmol/L (22-30); Chloride 101 mmol/L (98-107); Estimated CRCL calculation 52 ml/min; Estimated Glomerular Filt Rate 46; Glucose 154 mg/dL (75-110); Sodium 136 mmol/L (137-145)
--- NOTE | 2019-12-25 09:25 | PCPTNOTE ---
Pt will not receive TLSO brace until this afternoon per nursing. Will attempt PT evaluation again when TLSO brace received.
--- NOTE | 2019-12-25 10:48 | PM.IMPN ---
Progress Note: A&P Assessment and Plan (1) Closed T12 spinal fracture: Code(s): S22.089A - Unspecified fracture of T11-T12 vertebra, initial encounter for closed fracture Status: Acute Assessment and Plan: He had a mechanical fall on 12/21/19. CT a/p shows subacute T12 anterior cortex column fracture. He has a history of back surgery. [facility] neuro/spine surgery had been contacted and will follow up as an outpatient and recommended MRI of lumbar spine which is ordered. He will be fitted for a TLSO brace today. PT and OT have been consulted and will begin therapy following TLSO brace fitting. Care coordination is following for possible continued rehab upon discharge (2) Intractable low back pain: Code(s): M54.5 - Low back pain Status: Acute Assessment and Plan: Pain is 10/10 with motion and 7/10 when lying still. Continue analgesics and muscle relaxant He received one time dose of toradol which will further be avoided given Eliquis therapy. 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 He had the hardware removed from his right hip due to the MRSA infection. Continue long-term doxycycline (4) Acute kidney injury: Code(s): N17.9 - Acute kidney failure, unspecified Status: Acute Assessment and Plan: He had a slight bump in creatinine compared to baseline. There is no documented history of CKD. Unclear etiology at this point but may be secondary to diuretic therapy. He does have a history of BPH but notes he is urinating regularly and his urine output is adequate. Hold Bumex for now Perform bladder scan to ensure he is not retaining urine Continue to monitor renal function closely Avoid nephrotoxic agents and renally dose medications. (5) Chronic hypoxemic respiratory failure: Code(s): J96.11 - Chronic respiratory failure with hypoxia Status: Chronic Assessment and Plan: He is established with pulmonology. Patient uses 1 liter of oxygen with exertion and 1 liter of oxygen bleed in on BiPAP. Continue supplemental O2 as needed to maintain oxygen saturation range 90 to 94%. Wean to goal (6) COPD (chronic obstructive pulmonary disease): Qualifiers: COPD type: unspecified COPD Qualified Code(s): J44.9 - Chronic obstructive pulmonary disease, unspecified Code(s): J44.9 - Chronic obstructive pulmonary disease, unspecified Status: Chronic Assessment and Plan: Established with pulmonology. Maintaining adequate oxygenation. Continue home regimen including Symbicort 160 2 puffs twice a day, Spiriva Respimat 2.5mcg, Daliresp 500mcg daily, and albuterol neb q.i.d. His daliresp is nonformulary so his is bringing it. Supplemental O2 as noted above. (7) Atrial fibrillation: Qualifiers: Atrial fibrillation type: unspecified Qualified Code(s): I48.91 - Unspecified atrial fibrillation Code(s): I48.91 - Unspecified atrial fibrillation Status: Chronic Assessment and Plan: Rate is controlled. Continue with Eliquis and metoprolol. (8) [place] (obstructive sleep apnea): Code(s): G47.33 - Obstructive sleep apnea (adult) (pediatric) Status: Acute Assessment and Plan: Continue with BiPAP with 1L O2 bleed in. (9) CHF (congestive heart failure): Qualifiers: Heart failure type: unspecified Heart failure chronicity: chronic Qualified Code(s): I50.9 - Heart failure, unspecified Code(s): I50.9 - Heart failure, unspecified Status: Chronic Assessment and Plan: No prior echo available for review. He appears clinically compensated. Continue metoprolol Hold bumex f
--- NOTE | 2019-12-25 12:56 | PC.NURSE ---
Patient's home medication roflumilast sent to pharmacy for clarification to be used during hospital stay.
--- NOTE | 2019-12-25 14:00 | PHAR ---
The patient's home med of Roflumilast 500 MCG has been verified.
--- NOTE | 2019-12-25 14:21 | PCOTNOTE ---
Attempted OT eval 14:15; pt was sleeping. reported he did receive his TLSO so will attempt later.
[2019-12-25] MEDS: polyethylene glycoL 3350 17 GM POWD.PACK PO (16:49)
[2019-12-26] VITALS (7 sets, daily range): BP systolic 128–144; BP diastolic 72–93; PULSE 81–92; RESP 12–20; TEMP 36.4–36.6; O2SAT 94–99
[2019-12-26] MEDS: CYCLOBENZAPRINE HCL 10 MG TABLET PO ×3 (05:34→20:32)
[2019-12-26 05:40] LABS: Blood Urea Nitrogen 34 mg/dL (9-20); Calcium 9.6 mg/dL (8.4-10.2); Carbon Dioxide 25 mmol/L (22-30); Chloride 100 mmol/L (98-107); Estimated CRCL calculation 59 ml/min; Estimated Glomerular Filt Rate 54; Glucose 121 mg/dL (75-110); Potassium 4.1 mmol/L (3.4-5.0); Sodium 136 mmol/L (137-145)
[2019-12-26] MEDS: CYANOCOBALAMIN 500 MCG TABLET PO (09:41)
[2019-12-26] MEDS: ASPIRIN 81 MG ENTERIC TABLET PO (09:41)
[2019-12-26] MEDS: polyethylene glycoL 3350 17 GM POWD.PACK PO (09:41)
[2019-12-26] MEDS: DOCUSATE SODIUM 100 MG CAPSULE PO ×2 (09:41→20:32)
[2019-12-26] MEDS: DOXYCYCLINE HYCLATE 100 MG TABLET PO (09:41)
[2019-12-26] MEDS: APIXABAN 5 MG TABLET PO ×2 (09:41→17:09)
[2019-12-26] MEDS: FOLIC ACID 0.4 MG TABLET PO (09:42)
[2019-12-26] MEDS: PANTOPRAZOLE 40 MG TABLET PO (09:42)
[2019-12-26] MEDS: FERROUS SULFATE 324 MG TABLET PO ×2 (09:42→17:09)
[2019-12-26] MEDS: POTASSIUM CHLORIDE 20 MEQ TABLET.ER PO (09:42)
[2019-12-26] MEDS: LORATADINE 10 MG TABLET PO (09:42)
[2019-12-26] MEDS: METOPROLOL SUCCINATE EXT REL 50 MG TABCR PO (09:42)
[2019-12-26] MEDS: TAMSULOSIN HCL 0.4 MG CAPSULE PO (09:43)
[2019-12-26] MEDS: TRIAMCINOLONE ACET 0.1% CREAM 15 GM TUBE 1 APPLIC TOPICAL (09:43)
--- NOTE | 2019-12-26 10:35 | PM.IMPN ---
Progress Note: A&P Assessment and Plan (1) Closed T12 spinal fracture: Code(s): S22.089A - Unspecified fracture of T11-T12 vertebra, initial encounter for closed fracture Status: Acute Assessment and Plan: He had a mechanical fall on 12/21/19. CT a/p shows subacute T12 anterior cortex column fracture. He has a history of back surgery. [facility]spine surgery had been contacted and will follow up as an outpatient and recommended MRI of lumbar spine which shows acute versus subacute distraction fracture of T12 superior endplate with severe lumbar spondylosis, levoscoliosis, and evidence of anterior fusion procedure at L1-L2. continue TLSO brace. He was fitted for brace yesterday. Continue PT and OT. Care coordination is following for possible continued rehab upon discharge (2) Intractable low back pain: Code(s): M54.5 - Low back pain Status: Acute Assessment and Plan: Pain seems to be modestly improved today. 8/10 at worst and 4/10 at best. He seems to have some improvement of pain with the brace. Continue analgesics and muscle relaxant He received one time dose of toradol which will further be avoided given Eliquis therapy. Continue supportive care and PT/OT. 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 He had the hardware removed from his right hip due to the MRSA infection. Continue long-term doxycycline (4) Acute kidney injury: Code(s): N17.9 - Acute kidney failure, unspecified Status: Acute Assessment and Plan: He had a slight bump in creatinine compared to baseline. There is no documented history of CKD. Unclear etiology at this point but may be secondary to diuretic therapy. He does have a history of BPH but notes he is urinating regularly and his urine output is adequate. Improved today. Will continue to hold Bumex today and resume when clinically appropriate. Bladder scan performed on 12/24 with no evidence of urinary retention. Continue to monitor renal function closely Avoid nephrotoxic agents and renally dose medications. (5) Chronic hypoxemic respiratory failure: Code(s): J96.11 - Chronic respiratory failure with hypoxia Status: Chronic Assessment and Plan: He is established with pulmonology. Patient uses 1 liter of oxygen with exertion and 1 liter of oxygen bleed in on BiPAP. he is maintaining adequate oxygenation on room air today. Continue supplemental O2 as needed to maintain oxygen saturation range 90 to 94%. Wean to goal (6) COPD (chronic obstructive pulmonary disease): Qualifiers: COPD type: unspecified COPD Qualified Code(s): J44.9 - Chronic obstructive pulmonary disease, unspecified Code(s): J44.9 - Chronic obstructive pulmonary disease, unspecified Status: Chronic Assessment and Plan: Established with pulmonology. Maintaining adequate oxygenation. Continue home regimen including Symbicort 160 2 puffs twice a day, Spiriva Respimat 2.5mcg, Daliresp 500mcg daily, and albuterol neb q.i.d. His daliresp is nonformulary so his is bringing it. Supplemental O2 as noted above. (7) Atrial fibrillation: Qualifiers: Atrial fibrillation type: unspecified Qualified Code(s): I48.91 - Unspecified atrial fibrillation Code(s): I48.91 - Unspecified atrial fibrillation Status: Chronic Assessment and Plan: Rate is controlled. Continue with Eliquis and metoprolol. (8) VALENTINA (obstructive sleep apnea): Code(s): G47.33 - Obstructive sleep apnea (adult) (pediatric) Status: Acute Assessment and Plan: Continue with BiPAP with 1L O2 bleed in. (9) CHF (congestive heart failure): Qualifiers: Heart
[2019-12-27] MEDS: CYCLOBENZAPRINE HCL 10 MG TABLET PO ×3 (05:00→21:06)
[2019-12-27 05:27] LABS: Blood Urea Nitrogen 33 mg/dL (9-20); Calcium 9.5 mg/dL (8.4-10.2); Carbon Dioxide 26 mmol/L (22-30); Chloride 100 mmol/L (98-107); Estimated CRCL calculation 55 ml/min; Estimated Glomerular Filt Rate 50; Glucose 116 mg/dL (75-110); Sodium 137 mmol/L (137-145)
[2019-12-27 05:28] VITALS: BP 148/95; PULSE 99; RESP 16; TEMP 36.6; O2SAT 100
[2019-12-27] MEDS: MORPHINE SULFATE 2 MG/ML INJ IV PUSH (06:15)
[2019-12-27 08:38] VITALS: PULSE 99
[2019-12-27] MEDS: ASPIRIN 81 MG ENTERIC TABLET PO (08:38)
[2019-12-27] MEDS: FOLIC ACID 0.4 MG TABLET PO (08:38)
[2019-12-27] MEDS: PANTOPRAZOLE 40 MG TABLET PO (08:38)
[2019-12-27] MEDS: APIXABAN 5 MG TABLET PO ×2 (08:38→17:01)
[2019-12-27] MEDS: POTASSIUM CHLORIDE 20 MEQ TABLET.ER PO (08:38)
[2019-12-27] MEDS: LORATADINE 10 MG TABLET PO (08:38)
[2019-12-27] MEDS: TAMSULOSIN HCL 0.4 MG CAPSULE PO (08:38)
[2019-12-27] MEDS: CYANOCOBALAMIN 500 MCG TABLET PO (08:38)
[2019-12-27] MEDS: DOXYCYCLINE HYCLATE 100 MG TABLET PO (08:38)
[2019-12-27] MEDS: DOCUSATE SODIUM 100 MG CAPSULE PO ×2 (08:38→21:06)
[2019-12-27] MEDS: FERROUS SULFATE 324 MG TABLET PO ×2 (08:38→17:01)
[2019-12-27] MEDS: METOPROLOL SUCCINATE EXT REL 50 MG TABCR PO (08:38)
[2019-12-27] MEDS: TRIAMCINOLONE ACET 0.1% CREAM 15 GM TUBE 1 APPLIC TOPICAL (08:40)
[2019-12-27] MEDS: polyethylene glycoL 3350 17 GM POWD.PACK PO (08:47)
[2019-12-27 09:25] VITALS: PULSE 82; RESP 18; O2SAT 98
[2019-12-27 09:50] VITALS: O2SAT 97
--- NOTE | 2019-12-27 10:08 | PM.IMPN ---
Progress Note: A&P Assessment and Plan (1) Closed T12 spinal fracture: Qualifiers: Encounter type: initial encounter Fracture morphology: other fracture Qualified Code(s): S22.088A - Other fracture of T11-T12 vertebra, initial encounter for closed fracture Code(s): S22.089A - Unspecified fracture of T11-T12 vertebra, initial encounter for closed fracture Status: Acute Assessment and Plan: He had a mechanical fall on 12/21/19. CT a/p shows subacute T12 anterior cortex column fracture. He has a history of back surgery. [facility] neuro[facility]spine surgery had been contacted and will follow up as an outpatient and recommended MRI of lumbar spine which shows acute versus subacute distraction fracture of T12 superior endplate with severe lumbar spondylosis, levoscoliosis, and evidence of anterior fusion procedure at L1-L2. Continue TLSO brace. Continue PT and OT. He will be continuing therapy with home health upon discharge. (2) Intractable low back pain: Code(s): M54.5 - Low back pain Status: Acute Assessment and Plan: He seems to have some improvement of pain with the brace. His pain was improving yesterday, but overnight he had a spasm and episode of severe pain. It seems that his pain is exacerbated by lying flat because he did display some improvement after putting on his brace and moving to the chair. Continue analgesics and muscle relaxant Resume dilaudid. He had requested to transition to oral analgesics only yesterday given his improvement and eagerness to return home, but his pain is more severe today. Plan to discontinue tonight at midnight for hopeful discharge tomorrow. I have requested he be given a recliner to sleep in tonight since lying flat exacerbates pain. He also has a recliner at home which he will use. He received one time dose of toradol which will further be avoided given Eliquis therapy. Continue supportive care and PT/OT. 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 He had the hardware removed from his right hip due to the MRSA infection. Continue long-term doxycycline (4) Acute kidney injury: Code(s): N17.9 - Acute kidney failure, unspecified Status: Acute Assessment and Plan: He had a slight bump in creatinine compared to baseline. There is no documented history of CKD. May be secondary to diuretic therapy. He does have a history of BPH but notes he is urinating regularly and his urine output is adequate. Seems to be fairly stable and close to baseline. Will resume Bumex Bladder scan performed on 12/24 with no evidence of urinary retention. Continue to monitor renal function closely Avoid nephrotoxic agents and renally dose medications. (5) Chronic hypoxemic respiratory failure: Code(s): J96.11 - Chronic respiratory failure with hypoxia Status: Chronic Assessment and Plan: He is established with pulmonology. Patient uses 1 liter of oxygen with exertion and 1 liter of oxygen bleed in on BiPAP. he is maintaining adequate oxygenation on room air today. Continue supplemental O2 as needed to maintain oxygen saturation range 90 to 94%. Wean to goal (6) COPD (chronic obstructive pulmonary disease): Qualifiers: COPD type: unspecified COPD Qualified Code(s): J44.9 - Chronic obstructive pulmonary disease, unspecified Code(s): J44.9 - Chronic obstructive pulmonary disease, unspecified Status: Chronic Assessment and Plan: Established with pulmonology. Maintaining adequate oxygenation. Continue home regimen including Symbicort 160 2 puffs twice a day, Spiriva Respimat 2.5mcg, Daliresp 500mcg daily, and albuterol neb q.i.d. His daliresp is nonformulary so his is bringing it. [place]
--- NOTE | 2019-12-27 10:41 | PCPTNOTE ---
The PT treatment was unable to be completed this AM due to high level of pain. Will attempt PT again this PM. Will continue per Plan of Care duration and frequency.
[2019-12-27 13:45] VITALS: BP 142/86; PULSE 79; RESP 20; TEMP 36.5; O2SAT 99
[2019-12-27 22:00] VITALS: BP 145/90; PULSE 84; RESP 21; TEMP 36.1; O2SAT 100
[2019-12-28] MEDS: CYCLOBENZAPRINE HCL 10 MG TABLET PO (05:29)
[2019-12-28 06:00] VITALS: BP 149/92; PULSE 77; RESP 18; TEMP 36.3; O2SAT 96
[2019-12-28 06:03] LABS: Anion Gap 12.1 mmol/L (7-16); Blood Urea Nitrogen 28 mg/dL (9-20); Calcium 9.6 mg/dL (8.4-10.2); Carbon Dioxide 26 mmol/L (22-30); Chloride 101 mmol/L (98-107); Estimated CRCL calculation 59 ml/min; Estimated Glomerular Filt Rate 54; Glucose 109 mg/dL (75-110); Potassium 4.1 mmol/L (3.4-5.0); Sodium 135 mmol/L (137-145)
--- NOTE | 2019-12-28 08:19 | PM.DS ---
DS: Admitting Diagnosis Admitting Diagnosis Admitting Diagnosis: Unspecified fracture of T11-T12 vertebra, initial encounter for closed fracture DS: Discharge Diagnosis Discharge Diagnosis (1) Closed T12 spinal fracture: Qualifiers: Encounter type: initial encounter Fracture morphology: other fracture Qualified Code(s): S22.088A - Other fracture of T11-T12 vertebra, initial encounter for closed fracture Code(s): S22.089A - Unspecified fracture of T11-T12 vertebra, initial encounter for closed fracture Status: Acute Assessment and Plan: He had a mechanical fall on 12/21/19. CT a/p shows subacute T12 anterior cortex column fracture. [facility] neuro/spine surgery had been contacted by the ED and recommended MRI of lumbar spine which showed acute versus subacute distraction fracture of T12 superior endplate with severe lumbar spondylosis, levoscoliosis, and evidence of anterior fusion procedure at L1-L2. He will follow up as an outpatient with their office. He was fitted for a TLSO brace and will continue using this brace until further follow up. He was evaluated by PT and OT. He will be continuing therapy with home health upon discharge. (2) Intractable low back pain: Code(s): M54.5 - Low back pain Status: Acute Assessment and Plan: He seemed to have some improvement of pain with the brace. His pain was worse when lying flat, therefore he was transitioned to a recliner for sleeping and seemed to do better. His pain was managed with IV and PO narcotic analgesics and cyclobenzaprine. His pain improved and IV dilaudid was discontinued. He was given a very short course of [place] until he can be evaluated by his PCP or [facility] spine surgeon. Continue supportive care and PT/OT. (3) Hx MRSA infection: Code(s): Z86.14 - Personal history of Methicillin resistant Staphylococcus aureus infection Status: Chronic Assessment and Plan: The patient has a history of chronic MRSA infection of the back, and hip. He had the hardware removed from his right hip due to the MRSA infection. Continue long-term doxycycline. There was no evidence of acute infection. (4) Acute kidney injury: Code(s): N17.9 - Acute kidney failure, unspecified Status: Acute Assessment and Plan: He had a slight bump in creatinine compared to baseline. Etiology unclear and there is no documented history of CKD. He does have a history of BPH but his urine output was adequate and there was no evidence of urinary retention on bladder scan. His Bumex was held for a brief time but was then resumed with no worsening of kidney function. Renal function was fairly stable and close to baseline. Repeat BMP in 1 week. (5) Chronic hypoxemic respiratory failure: Code(s): J96.11 - Chronic respiratory failure with hypoxia Status: Chronic Assessment and Plan: He is established with pulmonology. Patient uses 1 liter of oxygen with exertion and 1 liter of oxygen bleed in on BiPAP. He maintained adequate oxygenation on room air and did not require supplemental O2. (6) COPD (chronic obstructive pulmonary disease): Qualifiers: COPD type: unspecified COPD Qualified Code(s): J44.9 - Chronic obstructive pulmonary disease, unspecified Code(s): J44.9 - Chronic obstructive pulmonary disease, unspecified Status: Chronic Assessment and Plan: Established with pulmonology. Continue home regimen including Symbicort 160 2 puffs twice a day, Spiriva Respimat 2.5mcg, Daliresp 500mcg daily, and albuterol neb q.i.d. His daliresp is nonformulary so his brought it in. (7) Atrial fibrillation: Qualifiers: Atrial fibrillation type: unspecified Qualified Code(s): I48.91 - Unspecified atrial fibrillation Code(s): I48.91 - Unspecified atrial fibrillation Status: Chronic Assessment and Plan: Rate is controlled. Continue with Eliquis and metoprolol.
[2019-12-28 08:36] VITALS: PULSE 77
[2019-12-28] MEDS: DOXYCYCLINE HYCLATE 100 MG TABLET PO (08:36)
[2019-12-28] MEDS: PANTOPRAZOLE 40 MG TABLET PO (08:36)
[2019-12-28] MEDS: TAMSULOSIN HCL 0.4 MG CAPSULE PO (08:36)
[2019-12-28] MEDS: METOPROLOL SUCCINATE EXT REL 50 MG TABCR PO (08:36)
[2019-12-28] MEDS: FOLIC ACID 0.4 MG TABLET PO (08:36)
[2019-12-28] MEDS: LORATADINE 10 MG TABLET PO (08:36)
[2019-12-28] MEDS: ASPIRIN 81 MG ENTERIC TABLET PO (08:37)
[2019-12-28] MEDS: FERROUS SULFATE 324 MG TABLET PO (08:38)
[2019-12-28] MEDS: CYANOCOBALAMIN 500 MCG TABLET PO (08:38)
[2019-12-28] MEDS: DOCUSATE SODIUM 100 MG CAPSULE PO (08:38)
[2019-12-28] MEDS: POTASSIUM CHLORIDE 20 MEQ TABLET.ER PO (08:38)
[2019-12-28] MEDS: APIXABAN 5 MG TABLET PO (08:38)
[2019-12-28] MEDS: polyethylene glycoL 3350 17 GM POWD.PACK PO (08:59)
[2019-12-28] MEDS: TRIAMCINOLONE ACET 0.1% CREAM 15 GM TUBE 1 APPLIC TOPICAL (11:20)
== END 2019-12-28 13:00 | disposition home health service (06) | DRG 552 ==
LOC: ANHED 18:24 → ANH2MED 18:34
PROVIDERS: Physician Assistant; Admitting Provider Internal Medicine; Emergency Provider General Practice; PCP Family Medicine; Visit Provider Internal Medicine
DX: S22.088A Other fracture of T11-T12 vertebra, initial encounter for closed fracture (principal); J96.10 Chronic respiratory failure, unspecified whether with hypoxia or hypercapnia; N17.9 Acute kidney failure, unspecified; W19.XXXA Unspecified fall, initial encounter; Z86.14 Personal history of Methicillin resistant Staphylococcus aureus infection; J44.9 Chronic obstructive pulmonary disease, unspecified; I48.91 Unspecified atrial fibrillation; G47.33 Obstructive sleep apnea (adult) (pediatric)
CPT/HCPCS: 36415; 71045; 72148; 73521; 74177; 80048; 80053; 81003; 83605; 83690; 85025; 85027; 85055; 85610; 85730; 94640; 96374; 96375; 96376; 97110; 97116; 97162; 97166; 97530; 97535; 97763; 99285; A9270; G0378; J0131; J1170; J1885; J2270; J2405; Q9967

== ENCOUNTER 2020-07-21 12:02 | Outpatient (CLI) | payer MEDICARE, SELFPAY ==
--- NOTE | ~2020-07-21 | XR_ITS ---
XR chest 2V DATE: 07/21/2020 12:32 INDICATION: Shortness of breath TECHNIQUE: AP and lateral views COMPARISON: 12/24/2019 AP chest FINDINGS: Mild cardiomegaly. Aortic and coronary artery calcification. No hilar or mediastinal enlarg ement. No pulmonary infiltrate or consolidation, pleural effusion or pulmonary vascular congestion or pneumothorax is detected. Diffuse osteopenia. Degenerative spurring of the thoracic spine. Osteoarthritis at both glenohumeral joints. IMPRESSION: Mild cardiomegaly Aortic atherosclerosis, coronary atherosclerosis No active pulmonary disease Reviewed, dictated and finalized at location B. [employer]
== END 2020-07-21 12:03 | disposition home or self-care (01) ==
LOC: ANHIMG 12:06
PROVIDERS: PCP Family Medicine; Visit Provider Nurse Practitioner Family
DX: R06.02 Shortness of breath (principal); R05 Cough; I51.7 Cardiomegaly; I25.10 Atherosclerotic heart disease of native coronary artery without angina pectoris
CPT/HCPCS: 71046

== ENCOUNTER 2020-09-18 13:27 | Outpatient (CLI) | payer MEDICARE, SELFPAY ==
--- NOTE | 2020-09-18 16:45 | WPDSIXMINUTE ---
Six Minute Walk This is a 6 minutes walk test. The test was performed and interpreted in accordance with the 2014 ERS/ATS task force guidelines. The patient used a wheeled walker throughout the study. Findings: The patient's resting room air oxygen saturation measured by pulse oximetry was 94% and her heart rate was 88 bpm. Patient ambulated for 46 meters and oxygen saturation remained 93 to 98%. Heart rate at the end of the study was 95 bpm. There are no prior studies for comparison. Six Minute Walk Procedure Procedure Performed Pulmonary Stress Test (6 min walk)
--- NOTE | 2020-09-18 16:46 | WPDPFTINT ---
PFT Interpretation This is a pulmonary function test with spirometry and plethysmography. The test was performed and results interpreted in accordance with the 2019 and 2005 ATS/ERS Task Force guidelines respectively using the Global Lung Function Initiative-2012 reference equations. Patient demonstrated good effort and cooperation. Reproducibility criteria were met. The quality of the spirometry maneuver was Grade A. The patient was unable to perform the DLCO maneuver Findings: Spirometry: there is decreased maximal expiratory airflow at all lung volumes with concave expiratory flow tracing. The FVC is 1.91 L, 44% predicted. The FEV1 is 0.93 L, 28% predicted. The FEV1: FVC ratio was 49%. Plethysmography: The total lung capacity is 4.76 L, 66% predicted. Functional residual capacity is 3.43 L, 89% predicted. The residual volume is 2.85 L, 113% predicted. In comparison to previous study on 02/21/2018 the pre bronchodilator FVC is unchanged from 1.79 L to 1.91 L. The pre bronchodilator FEV1 is unchanged from 0.92 L to 0.93 L. the total lung capacity is unchanged from 4.77 L to 4.76 L. The functional residual capacity is unchanged from 3.66 L to 3.43 L. The residual volume is unchanged from 2.98 L to 2.85 L. Impression: There is a combined obstructive and restrictive ventilatory abnormality. There are no guidelines to assign the severity of obstruction and restriction with a combined abnormality. In my opinion, given the severely concave expiratory flow tracing, severely decreased FEV1:FVC ratio and moderate restrictive abnormality I would state there is a severe obstructive abnormality and a moderate restrictive abnormality resulting in a very severe decrease in FEV1. when compared to prior pulmonary function test on 02/21/2018 there has been no significant change in FVC, FEV1, total lung capacity, functional residual capacity or residual volume. Clinical correlation is recommended. PFT Procedure Performed PFT Procedure Performed Plethysmography (Lung Vol) Spirometry w/o Bronchodil
== END 2020-09-18 13:28 | disposition home or self-care (01) ==
LOC: ANHPFT 13:28
PROVIDERS: PCP Family Medicine; Visit Provider Family Medicine
DX: J44.9 Chronic obstructive pulmonary disease, unspecified (principal)
CPT/HCPCS: 94375; 94618; 94726

== ENCOUNTER → 2020-10-01 16:16 | Outpatient (CLI) | payer MEDICARE, SELFPAY ==
--- NOTE | ~2020-10-01 | XR_ITS ---
EXAMINATION: XR toe 2nd LT min 2V DATE: 10/01/2020 16:56 INDICATION: Open wound and erythema and swelling at the left second toe. TECHNIQUE: Dorsal plantar, lateral and oblique views of the left second were obtained. COMPARISON: None FINDINGS: Bone alignment is normal. No fracture. No cortical erosions or osteolysis to suggest osteomyelitis. M ild polyarticular osteoarthritis throughout the mid and forefoot large plantar calcaneal spur with ad ditional large amount of heterotopic ossification along the plantar aponeurosis. IMPRESSION: 1. No erosions or osteolysis to suggest osteomyelitis. 2. Large plantar calcaneal spur and large amount of heterotopic ossicles along the plantar aponeurosi s likely sequela of chronic trauma and/or plantar fasciitis. 3. Mild polyarticular osteoarthritis in the mid and forefoot. Reviewed, dictated and finalized at location A. IMPRESSION: 1. No erosions or osteolysis to suggest osteomyelitis. 2. Large plantar calcaneal spur and large amount of heterotopic ossicles along the plantar aponeurosis likely sequela of chronic trauma and/or plantar fasciit is. 3. Mild polyarticular osteoarthritis in the mid and forefoot.
== END ==
PROVIDERS: Visit Provider Physician Assistant Medical
DX: M79.675 Pain in left toe(s) (principal); S91.109A Unspecified open wound of unspecified toe(s) without damage to nail, initial encounter; M77.32 Calcaneal spur, left foot; M19.072 Primary osteoarthritis, left ankle and foot
CPT/HCPCS: 73660

== ENCOUNTER 2020-10-23 13:57 | Outpatient (CLI) | payer MEDICARE, SELFPAY ==
--- NOTE | ~2020-10-23 | US_ITS ---
EXAMINATION: US art doppler w press GENNA DATE: 10/23/2020 14:41 INDICATION: Left second toe ulcer. TECHNIQUE: Segmental pressures and plethysmographic and Doppler waveforms of the brachial and lower e xtremity arteries were obtained. COMPARISON: None. FINDINGS: Right and left brachial artery pressures of 135 mm Hg and 136 mm Hg, respectively, are concordant (no rmal difference <= 30 mmHg). The right high-thigh pressure index is 1.00 (normal > 1.2). The right ankle-brachial index (CRESENCIO) is 1 .12 (normal >= 0.9-1.0). The right great toe-brachial index (TBI) is 0.95 (normal >= 0.65). Arterial Doppler waveforms are at least triphasic in common femoral artery and superficial femoral artery and at least biphasic in popliteal artery and at the ankle. The left high-thigh pressure index is 1.46. The left CRESENCIO is 1.15. The left TBI is 0.76. Arterial Dopp ler waveforms are at least triphasic in common femoral artery and superficial femoral artery and at l east biphasic in popliteal and at the ankle. IMPRESSION: 1. No significant arterial occlusive disease. Reviewed, dictated and finalized at location A.
== END 2020-10-23 13:58 | disposition home or self-care (01) ==
PROVIDERS: PCP Family Medicine; Visit Provider Physician Assistant Medical
DX: S91.109A Unspecified open wound of unspecified toe(s) without damage to nail, initial encounter (principal); R09.89 Other specified symptoms and signs involving the circulatory and respiratory systems
CPT/HCPCS: 93923

== ENCOUNTER 2021-01-09 13:30 | Outpatient (RCR) | payer MEDICARE, SELFPAY ==
[2020-09-12 15:51] VITALS: PULSE 73
== END 2021-01-09 23:59 | disposition home or self-care (01) ==
LOC: ANHCPREHAB 13:30
PROVIDERS: PCP Family Medicine; Visit Provider Family Medicine
DX: J43.9 Emphysema, unspecified (principal)
CPT/HCPCS: 97150; G0424

== ENCOUNTER 2021-01-13 15:08 | Outpatient (RCR) | payer MEDICARE, SELFPAY ==
[2021-01-11 00:03] VITALS: PULSE 73
== END 2021-01-13 15:13 | disposition home or self-care (01) ==
LOC: ANHCPREHAB 15:08
PROVIDERS: PCP Family Medicine; Visit Provider Family Medicine
DX: J43.9 Emphysema, unspecified (principal)
CPT/HCPCS: 97150; G0424

== ENCOUNTER 2021-02-05 12:45 | Outpatient (CLI) | payer MEDICARE, SELFPAY ==
--- NOTE | 2021-02-05 16:21 | WPDSIXMINUTE ---
Six Minute Walk Procedure Procedure Performed Pulmonary Stress Test (6 min walk) Six Minute Walk This is a 6 minute walk test. The test was performed and interpreted in accordance with the 2014 ERS/ATS task force guidelines. Of note the patient used his personal wheeled walker. The patient stopped walking at 5 minutes due to shortness of breath and back pain. Findings: The patient's resting room air oxygen saturation measured by pulse oximetry was 96% and her heart rate was 86 bpm. Patient ambulated for 76 meters and oxygen saturation remained 93 to 97%. Heart rate at the end of the study was 66 bpm. The patient did not qualify for supplemental oxygen at rest or with ambulation. There are no prior studies for comparison.
== END 2021-02-05 12:46 | disposition home or self-care (01) ==
LOC: ANHPFT 12:51
PROVIDERS: PCP Family Medicine; Visit Provider Family Medicine
DX: J43.9 Emphysema, unspecified (principal)
CPT/HCPCS: 94618

== ENCOUNTER → 2021-06-13 08:05 | Outpatient (CLI) | payer MEDICARE, SELFPAY ==
[2021-06-13 22:40] LABS: SARS-CoV-2 RNA PCR Negative
== END ==
PROVIDERS: PCP Family Medicine; Visit Provider Physician Assistant
DX: R05.9 Cough, unspecified (principal); Z20.822 Contact with and (suspected) exposure to COVID-19
CPT/HCPCS: C9803; U0003; U0005

== ENCOUNTER 2022-03-02 14:55 | Emergency (ER) | payer MEDICARE, SELFPAY ==
--- NOTE | ~2022-03-02 | XR_ITS ---
EXAMINATION: XR foot LT min 3V DATE: 03/02/2022 16:03 INDICATION: Left foot pain and swelling TECHNIQUE: Dorsoplantar, lateral, and 2 oblique views of the left foot were obtained. COMPARISON: None. FINDINGS: There is a questionable nondisplaced proximal neck fracture in the fifth proximal phalanx. No additional suspected fracture is identified. There is mild osteoarthritis of multiple interphalang eal joints. There is moderate to severe osteoarthritis of the midfoot. Heterotopic ossification of th e plantar fascia is noted. IMPRESSION: 1. Possible nondisplaced proximal neck fracture of the fifth proximal phalanx. Reviewed, dictated and finalized at location A.
--- NOTE | ~2022-03-02 | XR_ITS ---
EXAMINATION: XR tibia fibula LT 2V INDICATION: Left leg pain TECHNIQUE: Two views of the left tibia and fibula are obtained on four radiographs COMPARISON: None available FINDINGS: Bone alignment is normal. There is no fracture. Calcified atherosclerosis is noted. There i s moderate osteoarthritis of the knee. Heterotopic ossification is noted in the plantar fascia. There is moderate osteoarthritis of the midfoot and ankle. IMPRESSION: 1. No acute osseous abnormality. Reviewed, dictated and finalized at location A.
--- NOTE | ~2022-03-02 | US_ITS ---
EXAMINATION: US venous doppler LE RT DATE: 03/02/2022 16:39 INDICATION: Right lower limb swelling TECHNIQUE: Boudreaux scale images without and with compression and Doppler images of the right lower extre mity veins were obtained. COMPARISON: 12/05/2017 FINDINGS: The right common femoral vein, profunda femoral vein, femoral vein, popliteal vein, posteri or tibial veins, and greater saphenous vein are patent. The peroneal trunk is not evaluated. IMPRESSION: 1. Patent right lower extremity veins. No evidence of deep venous thrombosis. Reviewed, dictated and finalized at location A.
--- NOTE | ~2022-03-02 | XR_ITS ---
EXAMINATION: XR ankle LT min 3V DATE: 03/02/2022 16:02 INDICATION: Left ankle pain TECHNIQUE: Anteroposterior, lateral, mortise, and additional oblique view of the ankle were obtained. COMPARISON: None. FINDINGS: Bone alignment is normal. No acute fracture is identified. There is moderate to severe oste oarthritis of the midfoot and moderate osteoarthritis of the ankle. Ankle soft tissue swelling is pre sent. There is heterotopic ossification of the plantar fascia. IMPRESSION: 1. No acute osseous abnormality. Reviewed, dictated and finalized at location A.
[2022-03-02 15:24] VITALS: BP 138/71; PULSE 77; RESP 17; TEMP 36.4; O2SAT 99
--- NOTE | 2022-03-02 15:55 | ED.LOWEXIN ---
HPI - Extremity Injury (Lower) General Chief Complaint: Extremity Injury, Lower Stated Complaint: left foot injury Time Seen by Provider: 03/02/22 15:39 History of Present Illness HPI Narrative: 71-year-old male with a history of A. fib and neuropathy presents the emergency room for evaluation of left foot and ankle pain. Patient states on Tuesday he was getting out of bed when his foot got stuck in the foot of the iron bed frame. Patient was not experiencing any pain following the injury until today. Did notice significant bruising and soft tissue swelling to the foot and ankle. Today began experiencing redness and warmth to his calf and sue area. Patient states he began experiencing pain to the lateral side of his foot today and is having difficulty ambulating. Related Data Home Medications Medication Instructions Recorded Confirmed ferrous sulfate 324 mg (65 mg 324 mg PO BID 04/05/19 03/02/22 iron) tablet,delayed release omeprazole 40 mg capsule,delayed 40 mg PO DAILY 04/05/19 03/02/22 release tamsulosin 0.4 mg capsule (Flomax) 0.4 mg PO DAILY 04/05/19 03/02/22 aspirin 81 mg tablet,delayed 81 mg PO DAILY 05/21/19 03/02/22 release vitamin B12 500 mcg-folic acid 400 1 tablet PO DAILY 05/21/19 03/02/22 mcg tablet cetirizine 10 mg tablet 10 mg PO DAILY 08/04/19 03/02/22 acetaminophen 325 mg capsule 325 mg PO Q6H PRN Pain 03/17/20 03/02/22 diphenhydramine HCl 25 mg capsule 25 mg PO BID 09/12/20 03/02/22 (Benadryl) naphazoline-pheniramine 0.46956 1 drop ophthalmic (eye) Q6H PRN 09/12/20 03/02/22 %-0.315 % eye drops (Opcon-A) Dry Eyes bumetanide 0.5 mg tablet 0.5 mg PO BID 11/17/20 03/02/22 magnesium oxide 400 mg PO BID 03/04/21 03/02/22 pyridoxine (vitamin B6) 100 mg 100 mg PO DAILY 03/04/21 03/02/22 tablet gabapentin 100 mg capsule 200 mg PO QHS 12/17/21 03/02/22 folic acid 1 mg tablet 1 mg PO DAILY 03/02/22 03/02/22 spironolactone 25 mg tablet 12.5 mg PO DAILY 03/02/22 03/02/22 Allergies Allergy/AdvReac Type Severity Reaction Status Date / Time Penicillins Allergy Intermediate Skin Verified 03/02/22 15:28 Reaction scopolamine Allergy Mild Confusion Verified 03/02/22 15:28 tobramycin Allergy Mild Unknown Verified 03/02/22 15:28 pepper (genus Capsicum) AdvReac Intermediate Nausea and Verified 03/02/22 15:28 Vomiting levofloxacin AdvReac Mild Swelling Verified 03/02/22 15:28 of the Eye Review of Systems Review of Systems: CONSTITUTIONAL: Denies fever, chills, or sweats. EYES: Denies visual changes, redness, or discharge. ENT: Denies rhinorrhea, congestion, sore throat, or otalgia. CARDIOVASCULAR: Denies chest pain, palpitations, or edema. RESPIRATORY: Denies cough or dyspnea. GASTROINTESTINAL: Denies abdominal pain, nausea, vomiting, or diarrhea. GENITOURINARY: Denies dysuria or hematuria. SKIN: Swelling to left calf MUSCULOSKELETAL: Left foot and left ankle pain NEUROLOGIC: Denies headache, numbness, dizziness, or weakness. PSYCHIATRIC: Denies anxiety or depression. [facility] Past Medical History Medical History (Updated 03/02/22 @ 17:37 by Bandar Robles, JOHN) Abscess Atrial fibrillation rate controlled BiPAP (biphasic positive airway pressure) dependence BPH (benign prostatic hyperplasia) CHF (congestive heart failure) has recovered had with atrial fib Chronic diastolic heart failure Cirrhosis COPD (chronic obstructive pulmonary disease) GERD (gastroesophageal reflux disease) History of CVA (cerebrovascular accident) History of DVT (deep vein thrombosis) Lipoma Extracted from his neck MRSA (methicillin resistant Staphylococcus aureus) infection The patient had a spinal abscess L1-L2 complicated was septicemia and then had 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 Pneumothorax on left Sleep apnea Surgical History Surgical History History of back surgery History of hip replacement on spine History of revision of total replacement of hip
[2022-03-02] MEDS: ACETAMINOPHEN 500 MG TABLET 1000 MG PO (17:56)
[2022-03-02 18:04] VITALS: BP 135/89; PULSE 89; RESP 19; O2SAT 98
== END 2022-03-02 18:05 | disposition home or self-care (01) ==
PROVIDERS: Emergency Provider Nurse Practitioner Family; PCP Emergency Medicine
DX: S92.515A Nondisplaced fracture of proximal phalanx of left lesser toe(s), initial encounter for closed fracture (principal); I48.91 Unspecified atrial fibrillation; I50.30 Unspecified diastolic (congestive) heart failure; K74.60 Unspecified cirrhosis of liver; J44.9 Chronic obstructive pulmonary disease, unspecified; N40.0 Benign prostatic hyperplasia without lower urinary tract symptoms; G47.30 Sleep apnea, unspecified; K21.9 Gastro-esophageal reflux disease without esophagitis; Z86.73 Personal history of transient ischemic attack (TIA), and cerebral infarction without residual deficits; Z86.718 Personal history of other venous thrombosis and embolism; Z86.14 Personal history of Methicillin resistant Staphylococcus aureus infection; Z96.649 Presence of unspecified artificial hip joint; Z87.891 Personal history of nicotine dependence; Z79.82 Long term (current) use of aspirin; Z79.01 Long term (current) use of anticoagulants; W23.1XXA Caught, crushed, jammed, or pinched between stationary objects, initial encounter
CPT/HCPCS: 73590; 73610; 73630; 93971; 99284; A9270

== ENCOUNTER 2022-03-22 16:45 | Outpatient (CLI) | payer MEDICARE, SELFPAY ==
--- NOTE | ~2022-03-22 | US_ITS ---
EXAMINATION: US venous doppler [facility] DATE: 03/22/2022 17:45 INDICATION: ACUTE EMBOLISM AND TRHOMBOSIS OF UNSPECIFIED . Left lower extremity pain and swelling. TECHNIQUE: Grayscale images without and with compression and Doppler images of the left lower extremi ty veins were obtained. COMPARISON: None FINDINGS: The left common femoral vein, profunda femoral vein, femoral vein, popliteal vein, peroneal vein, pos terior tibial veins, gastrocnemius vein, lesser saphenous and greater saphenous vein are patent. Extr emity edema. IMPRESSION: 1. Patent left lower extremity veins. No evidence of deep venous thrombosis. Reviewed, dictated and finalized at location K.
== END 2022-03-22 16:46 | disposition home or self-care (01) ==
LOC: ANHIMG 16:50
PROVIDERS: PCP Emergency Medicine; Visit Provider Podiatrist Foot & Ankle Surgery
DX: I74.9 Embolism and thrombosis of unspecified artery (principal); M79.89 Other specified soft tissue disorders
CPT/HCPCS: 93971

== ENCOUNTER 2022-06-04 01:23 | Day surgery (SDC) | payer MEDICARE, SELFPAY ==
[2022-05-26 12:18] VITALS: BMI 36.8
[2022-06-04 11:54] VITALS: BP 138/73; PULSE 77; RESP 20; O2SAT 97; BMI 11.2
--- NOTE | 2022-06-04 11:58 | PM.HPGS ---
History of Present Illness History of Present Illness Consent: Risks, benefits, and alternatives have been discussed and questions answered. Patient agrees to proceed with procedure. Chief complaint: Hx of colon polyps Narrative: Mason Keys is a 71 year old male Presents for screening colonoscopy. Patient has a history of left-sided ulcerative colitis in the distal 40cm of the colon. Most recent colonoscopy several years ago revealed this to be in remission. He does have a prior history of an inflammatory polyp. Patient denies any ongoing pain. His bowel habits are normal. He denies abdominal pain. Patient presents today for surveillance colonoscopy. Patient also has a history of cirrhosis felt to be attributed to RAYGOZA. Patient currently followed at [facility] in felt to be stable and compensated. Review of Systems Review of Systems: Review of systems noncontributory. [facility] Past Medical History Medical History (Updated 05/10/22 @ 12:12 by Edgardo Monson PA-C) Abscess Atrial fibrillation rate controlled BiPAP (biphasic positive airway pressure) dependence BPH (benign prostatic hyperplasia) CHF (congestive heart failure) has recovered had with atrial fib Chronic diastolic heart failure Cirrhosis COPD (chronic obstructive pulmonary disease) GERD (gastroesophageal reflux disease) History of CVA (cerebrovascular accident) History of DVT (deep vein thrombosis) Lipoma Extracted from his neck MRSA (methicillin resistant Staphylococcus aureus) infection The patient had a spinal abscess L1-L2 complicated was septicemia and then had 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 He has 2 children. He retired from the [employer]. Patient used to smoke in [place] and used to drink socially. He desires to be a full code. No marijuana or illicit drugs. Smoking packs per day: 1 Smoking cigarettes per day: 20.0 Years smoked: 7 Smoking pack-years: 7.00 Smoking status: Never smoker Tobacco type: cigarettes Smoking end date: 06/06/81 Alcohol intake: former Substance use: never Substance use type: does not use Lack of Transportation: No Lack of Food: Never True Current Housing: I Have Housing Concerned About Future Housing: No Difficulty Paying Gas/Electric Bills: No Difficulty Paying for Meds: No Currently Unemployed: No Education: Associate Degree Difficulty w/ Childcare or Family Care: No Living arrangements: with family Gender identity (if verbalized by the patient): Male Spiritual care concerns: No Agree to blood products: Yes Meds Home Medications and Allergies Home Medications Medication Instructions Recorded Confirmed Type ferrous sulfate 324 mg (65 mg 324 mg PO BID 04/05/19 05/26/22 History iron) tablet,delayed release omeprazole 40 mg capsule,delayed 40 mg PO DAILY 04/05/19 05/26/22 History release tamsulosin 0.4 mg capsule (Flomax) 0.4 mg PO DAILY 04/05/19 05/26/22 History aspirin 81 mg tablet,delayed 81 mg PO DAILY 05/21/19 05/26/22 History release vitamin B12 500 mcg-folic acid 400 1 tablet PO DAILY 05/21/19 05/26/22 History mcg tablet cetirizine 10 mg tablet 10 mg PO DAILY 08/04/19 05/26/22 History acetaminoph
[2022-06-04] MEDS: LACTATED RINGERS 1,000 ML 150 ML IV CONT (12:09)
--- NOTE | 2022-06-04 12:12 | WPDANESEPPF ---
Anes - Initial Pre Proc Eval Procedure: Operation Date: 06/04/22 13:15 Proposed Procedures p Screening Colonoscopy - Zhang Alarcon MD Date/Time: 06/04/22 12:12 Surgeon: Zhang Alarcon MD Pre Op Diagnosis: Hx of colon polyps Patient Data Age: 71 Gender: M Height: 1.8 m Weight: 36.8 kg Last Vital Signs Pulse 77 06/04/22 11:54 Resp 20 06/04/22 11:54 BP 138/73 06/04/22 11:54 Pulse Ox 97 06/04/22 11:54 O2 Del Method Room Air 06/04/22 11:54 Allergies Allergy/AdvReac Type Severity Reaction Status Date / Time levofloxacin Allergy Intermediate Swelling Verified 06/04/22 11:51 of the Eye Penicillins Allergy Intermediate Hives Verified 06/04/22 11:51 scopolamine Allergy Mild Confusion Verified 06/04/22 11:51 tobramycin Allergy Mild Hallucinati Verified 06/04/22 11:51 ng pepper (genus Capsicum) AdvReac Intermediate Nausea and Verified 06/04/22 11:51 Vomiting Home Medications Medication Instructions Recorded Confirmed Type ferrous sulfate 324 mg (65 mg 324 mg PO BID 04/05/19 05/26/22 History iron) tablet,delayed release omeprazole 40 mg capsule,delayed 40 mg PO DAILY 04/05/19 05/26/22 History release tamsulosin 0.4 mg capsule (Flomax) 0.4 mg PO DAILY 04/05/19 05/26/22 History aspirin 81 mg tablet,delayed 81 mg PO DAILY 05/21/19 05/26/22 History release vitamin B12 500 mcg-folic acid 400 1 tablet PO DAILY 05/21/19 05/26/22 History mcg tablet cetirizine 10 mg tablet 10 mg PO DAILY 08/04/19 05/26/22 History acetaminophen 325 mg capsule 325 mg PO Q6H PRN Pain 03/17/20 05/26/22 History diphenhydramine HCl 25 mg capsule 25 mg PO DAILY 09/12/20 05/26/22 History (Benadryl) naphazoline 0.75216 %-pheniramine 1 drop ophthalmic (eye) Q6H PRN 09/12/20 05/26/22 History 0.315 % eye drops (Opcon-A) Dry Eyes albuterol sulfate 2.5 mg/3 mL See Rx Instructions .Route 09/22/20 05/26/22 Rx (0.083 %) solution for nebulization .COMPLEX #120 vials bumetanide 0.5 mg tablet 0.5 mg PO BID 11/17/20 05/26/22 History inhalational spacing device #10 ea 11/17/20 05/10/22 Rx (Aerochamber MV spacer) magnesium oxide 400 mg PO BID 03/04/21 05/26/22 History pyridoxine (vitamin B6) 100 mg 100 mg PO DAILY 03/04/21 05/26/22 History tablet doxycycline hyclate 100 mg capsule 100 mg PO DAILY #90 caps 12/17/21 05/26/22 Rx (Vibramycin) gabapentin 100 mg capsule 200 mg PO QHS 12/17/21 05/26/22 History folic acid 1 mg tablet 1 mg PO DAILY 03/02/22 05/26/22 History benzonatate 100 mg capsule 200 mg PO TID PRN cough #90 caps 05/12/22 05/26/22 Rx sodium,potassium,mag sulfates 17.5 See Rx Instructions PO .COMPLEX 05/18/22 06/04/22 Rx gram-3.13 gram-1.6 gram oral soln #354 mL (Suprep Bowel Prep Kit) apixaban 5 mg tablet (Eliquis) 5 mg PO BID 05/26/22 05/26/22 History budesonide 160 mcg-glycopyr 9 2 inh inhalation BID 05/26/22 05/26/22 History mcg-formot 4.8 mcg/actuation HFA inhaler (Breztri Aerosphere) ergocalciferol (vitamin D2) 1,250 50,000 unit PO WEEKLY 05/26/22 05/26/22 History mcg (50,000 unit) capsule metoprolol succinate 50 mg 100 mg PO DAILY 05/26/22 05/26/22 History tablet,extended release 24 hr nystatin 100,000 unit/gram topical 1 applic topical BID PRN Rash 05/26/22 05/26/22 History cream potassium chloride 20 mEq 20 meq PO DAILY 05/26/22 05/26/22 History tablet,extended release roflumilast 500 mcg tablet 500 mcg PO DAILY 05/26/22 05/26/22 History (Daliresp) baclofen 10 mg tablet 10 mg PO DAILY #90 tabs 06/01/22 06/04/22 Rx spironolactone 25 mg tablet 12.5 mg PO DAILY #45 tabs 06/01/22 06/04/22 Rx triamcinolone acetonide 0.1 % 1 applic topical DAILY #453.6 grams 06/01/22 06/04/22 Rx topical cream Patient hx anesthesia problems: none Family hx anesthesia problems: none Results Review: All pre-operative results and documents have been reviewed as part of the pre-operative evaluation. [facility] Past Medical History Medical History (Updated 05/10
[2022-06-04 13:21] LABS: Glucose Point of Care 107 mg/dl (65-105)
[2022-06-04 13:42] VITALS: BP 102/67; BP 94/62; PULSE 70; PULSE 73; RESP 17; RESP 22; O2SAT 96; O2SAT 97
[2022-06-04 13:52] VITALS: BP 113/69; PULSE 72; RESP 24; O2SAT 96
== END 2022-06-04 14:13 | disposition home or self-care (01) ==
PROVIDERS: PCP Emergency Medicine; Visit Provider Internal Medicine Gastroenterology
PROC: 0DJD8ZZ Inspection of Lower Intestinal Tract, Via Natural or Artificial Opening Endoscopic (ICD-10-PCS; CPT 45378; principal; 2022-06-04 13:15)
DX: Z12.11 Encounter for screening for malignant neoplasm of colon (principal); K51.30 Ulcerative (chronic) rectosigmoiditis without complications; K64.8 Other hemorrhoids; K57.30 Diverticulosis of large intestine without perforation or abscess without bleeding; Z86.010 Personal history of colon polyps; I50.32 Chronic diastolic (congestive) heart failure; I48.91 Unspecified atrial fibrillation; N40.0 Benign prostatic hyperplasia without lower urinary tract symptoms; K74.60 Unspecified cirrhosis of liver; J44.9 Chronic obstructive pulmonary disease, unspecified; K21.9 Gastro-esophageal reflux disease without esophagitis; G47.30 Sleep apnea, unspecified; Z86.73 Personal history of transient ischemic attack (TIA), and cerebral infarction without residual deficits; Z86.718 Personal history of other venous thrombosis and embolism; Z86.14 Personal history of Methicillin resistant Staphylococcus aureus infection; Z87.891 Personal history of nicotine dependence; Z79.82 Long term (current) use of aspirin; Z79.51 Long term (current) use of inhaled steroids; Z79.01 Long term (current) use of anticoagulants; E66.9 Obesity, unspecified; Z68.36 Body mass index [BMI] 36.0-36.9, adult
CPT/HCPCS: 45380; 82948; 88305; J2704; J7120

== ENCOUNTER 2022-07-21 17:45 | Inpatient (IN) | payer MEDICARE, SELFPAY ==
[2022-07-21] VITALS (7 sets, daily range): BP systolic 139–147; BP diastolic 73–82; PULSE 75–93; RESP 19–22; TEMP 36.9; O2SAT 96–100
--- NOTE | ~2022-07-21 | XR_ITS ---
EXAMINATION: XR chest 2V Exam Date/Time: 07/21/2022 18:45 HOME ADMINISTRATOR HISTORY: sob, copd Comparison: 07/21/2020. RESULT: Lines, tubes, and devices: Upper abdominal stent. Lungs and pleura: Senescent changes, otherwise clear. Cardiomediastinal silhouette: Stable. Other: No acute osseous or upper abdominal finding. IMPRESSION: No acute cardiopulmonary process. Reviewed, dictated and finalized at location K. ADMINISTRATOR
--- NOTE | 2022-07-21 17:49 | ECG_ITS ---
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
[2022-07-21 18:47] LABS: Basophils Absolute Auto 0.1 K/mm3 (0.0-0.1); Basophils Percent Auto 0.7 % (0.2-1.2); Eosinophils Absolute Auto 0.4 K/mm3 (0-0.3); Eosinophils Percent Auto 4.3 % (0-4.4); Hematocrit 45.6 % (42.0-52.0); Hemoglobin 14.4 g/dL (14.0-18.0); Immature Granulocyte Absolute 0.05 K/mm3 (0.00-0.031); Immature Granulocyte Percent A 0.5 % (0-0.5); Lymphocytes Absolute Auto 0.84 K/mm3 (0.9-3.2); Lymphocytes Percent Auto 8.1 % (18.3-44.2); Mean Corpuscular HGB Conc 31.6 g/dl (32-36); Mean Corpuscular Hemoglobin 30.5 pg (26-34); Mean Corpuscular Volume 96.6 fl (80-100); Mean Platelet Volume 12.8 fl (7.4-10.4); Monocytes Absolute Auto 1.1 K/mm3 (0.1-0.6); Monocytes Percent Auto 10.3 % (2.6-8.5); Neutrophils Absolute Auto 7.9 K/mm3 (1.3-6.7); Neutrophils Percent Auto 76.1 % (45.5-73.1); Platelet Count Result 135 k/mm3 (150-375); Red Blood Count 4.72 M/mm3 (4.6-6.20); Red Cell Distribution Width 14.6 % (11.5-14.5); White Blood Count 10.3 K/mm3 (4.5-10.0)
[2022-07-21 18:58] LABS: Alanine Aminotransferase 29 U/L (6-50); Albumin Level 4.3 g/dL (3.5-5.1); Alkaline Phosphatase 111 U/L (38-126); Anion Gap 8 mmol/L (8-16); Aspartate Amino Transferase 31 U/L (17-59); Blood Urea Nitrogen 36 mg/dL (9-20); Calcium 9.4 mg/dL (8.4-10.2); Carbon Dioxide 29 mmol/L (22-30); Chloride 102 mmol/L (98-107); Estimated CRCL calculation 44 ml/min; Estimated Glomerular Filt Rate 37; Glucose 128 mg/dL (65-110); Potassium 4.1 mmol/L (3.4-5.0); Sodium 139 mmol/L (137-145)
[2022-07-21] MEDS: MAGNESIUM SULF 2 GM/WATER 50ML 2 GM/50 ML BAG IVPB (22:19)
[2022-07-21] MEDS: methylPREDNISolone SOD SUCC 125 MG VIAL IV PUSH (22:19)
[2022-07-21] MEDS: IPRATROPIUM BR 0.02% INH SOLN 0.5 MG/2.5 ML VIAL 1.5 MG INHALATION (22:39)
[2022-07-21] MEDS: ALBUTEROL SULFATE NEB 2.5 MG/3 ML INH 7.5 MG INHALATION (22:39)
--- NOTE | 2022-07-21 23:02 | ED.GENADULT ---
HPI - General Adult General Chief complaint: Shortness of Breath/Dyspnea Stated complaint: difficulty breathing Time Seen by Provider: 07/21/22 21:50 History of Present Illness HPI narrative: This is a 71-year-old male with history of COPD on home oxygen presenting to ED with difficulty breathing. Patient notes that over the last several weeks he has had increased dyspnea. He has had increased sputum production that is clear. He was seen at the [facility] earlier today and noted to have decreased lung sounds. Patient denies fever, chills, chest pain, abdominal pain, urinary symptoms or diarrhea. Patient has a history of MRSA bacteremia. patient is on daily doxycycline prophylaxis. Related Data Home Medications Medication Instructions Recorded Confirmed ferrous sulfate 324 mg (65 mg 324 mg PO BID 04/05/19 05/26/22 iron) tablet,delayed release omeprazole 40 mg capsule,delayed 40 mg PO DAILY 04/05/19 05/26/22 release tamsulosin 0.4 mg capsule (Flomax) 0.4 mg PO DAILY 04/05/19 05/26/22 aspirin 81 mg tablet,delayed 81 mg PO DAILY 05/21/19 05/26/22 release vitamin B12 500 mcg-folic acid 400 1 tablet PO DAILY 05/21/19 05/26/22 mcg tablet cetirizine 10 mg tablet 10 mg PO DAILY 08/04/19 05/26/22 acetaminophen 325 mg capsule 325 mg PO Q6H PRN Pain 03/17/20 05/26/22 diphenhydramine HCl 25 mg capsule 25 mg PO DAILY 09/12/20 05/26/22 (Benadryl) naphazoline 0.50990 %-pheniramine 1 drop ophthalmic (eye) Q6H PRN 09/12/20 05/26/22 0.315 % eye drops (Opcon-A) Dry Eyes bumetanide 0.5 mg tablet 0.5 mg PO BID 11/17/20 05/26/22 magnesium oxide 400 mg PO BID 03/04/21 05/26/22 pyridoxine (vitamin B6) 100 mg 100 mg PO DAILY 03/04/21 05/26/22 tablet gabapentin 100 mg capsule 200 mg PO QHS 12/17/21 05/26/22 folic acid 1 mg tablet 1 mg PO DAILY 03/02/22 05/26/22 apixaban 5 mg tablet (Eliquis) 5 mg PO BID 05/26/22 05/26/22 ergocalciferol (vitamin D2) 1,250 50,000 unit PO WEEKLY 05/26/22 05/26/22 mcg (50,000 unit) capsule metoprolol succinate 50 mg 100 mg PO DAILY 05/26/22 05/26/22 tablet,extended release 24 hr nystatin 100,000 unit/gram topical 1 applic topical BID PRN Rash 05/26/22 05/26/22 cream potassium chloride 20 mEq 20 meq PO DAILY 05/26/22 05/26/22 tablet,extended release roflumilast 500 mcg tablet 500 mcg PO DAILY 05/26/22 05/26/22 (Daliresp) Allergies Allergy/AdvReac Type Severity Reaction Status Date / Time levofloxacin Allergy Intermediate Swelling Verified 06/04/22 11:51 of the Eye Penicillins Allergy Intermediate Hives Verified 06/04/22 11:51 scopolamine Allergy Mild Confusion Verified 06/04/22 11:51 tobramycin Allergy Mild Hallucinati Verified 06/04/22 11:51 ng pepper (genus Capsicum) AdvReac Intermediate Nausea and Verified 06/04/22 11:51 Vomiting PMFSH Past Medical History Medical History (Updated 07/22/22 @ 00:50 by Beka Echevarria MD) Abscess Atrial fibrillation rate controlled BiPAP (biphasic positive airway pressure) dependence BPH (benign prostatic hyperplasia) CHF (congestive heart failure) has recovered had with atrial fib Chronic diastolic heart failure Cirrhosis COPD (chronic obstructive pulmonary disease) GERD (gastroesophageal reflux disease) History of CVA (cerebrovascular accident) History of DVT (deep vein thrombosis) Lipoma Extracted from his neck MRSA (methicillin resistant Staphylococcus aureus) infection The patient had a spinal abscess L1-L2 complicated was septicemia and then had 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 Pneumothorax on left Sleep apnea Surgical History Surgical History History of back surgery History of hip replacement on spine History of revision of total replacement of hip joint Family History Family History Mother Family history of cardiovascular disease Family history of coronary artery disease Father Family history of
[2022-07-22] VITALS (20 sets, daily range): BP systolic 128–156; BP diastolic 71–88; PULSE 74–98; RESP 18–22; TEMP 36.7–36.9; O2SAT 96–100; BMI 36.6
[2022-07-22 00:22] LABS: Influenza A QL RT-PCR Negative (Negative); Influenza B QL RT-PCR Negative (Negative); RSV RNA, RT-PCR Negative (Negative); SARS-CoV-2 RNA PCR Negative
--- NOTE | 2022-07-22 00:27 | ECHO_ITS ---
Patient Info Name: Mason Keys Age: 71 years : 1950 Gender: Male Ht: 71 in Wt: 266 lbs BSA: 2.50 m2 HR: 105 bpm BP: 156 / 84 mmHg Exam Date: 07/22/2022 10:10 AM Exam Location: [facility] Patient Status: Outpatient Admit Date: 07/22/2022 Staff Ordering Physician: Aroldo Gurrola M.A., MD Billing Services Manager: Jorge Maria RDCS, RT Attending Provider: Rachel Holland PA-C Referring Physician: Marcus MITCHELL; Exam Type: CA echo doppler color flow Study Info Indications R06.02 - Shortness of breath Complete two-dimensional, color flow and Doppler transthoracic echocardiogram is performed. Strain analysis performed. Summary 1. Complete two-dimensional, color flow and Doppler transthoracic echocardiogram is performed. 2. Left ventricular chamber dimension is normal. 3. Left ventricular systolic function is normal, estimated at 65-70%. 4. There is mildly increased left ventricular wall thickness. 5. Global longitudinal strain is abnormal at -11 %. 6. Right ventricular systolic function is normal. 7. Right atrial chamber dimension is mildly enlarged. 8. There is trace mitral valve regurgitation. 9. There is trace tricuspid valve regurgitation. 10. Dilated inferior vena cava with <50% collapse upon inspiration consistent with elevated right atrial pressure, 15 mmHg. Left Ventricle Left ventricular chamber dimension is normal. Left ventricular systolic function is normal, estimated at 65-70%. There is mildly increased left ventricular wall thickness. The left ventricular diastolic function is indeterminate. Global longitudinal strain is abnormal at -11 %. Right Ventricle Right ventricular chamber dimension is normal. Right ventricular systolic function is normal. Left Atria Left atrial chamber dimension is normal. Right Atria Right atrial chamber dimension is mildly enlarged. Atrial Septum Intact interatrial septum visualized by color flow imaging. Aortic Valve The aortic valve is trileaflet. There is mild aortic valve sclerosis. There is no aortic valve stenosis. There is no aortic valve regurgitation. Pulmonic Valve The pulmonic valve is not well visualized. Mitral Valve There is no mitral valve stenosis. There is trace mitral valve regurgitation. Tricuspid Valve There is trace tricuspid valve regurgitation. Pericardium/Pleural The pericardium appears epicardial fat pad. There is no pericardial effusion. Inferior Vena Cava Dilated inferior vena cava with <50% collapse upon inspiration consistent with elevated right atrial pressure, 15 mmHg. Aorta The aortic root size at the sinus of Valsalva is normal. Left Ventricular Outflow Tract Name Value Normal LVOT 2D LVOT Diameter 2.1 cm LVOT Doppler LVOT Peak Gradient 2 mmHg LVOT Mean Gradient 1 mmHg LVOT VTI 11 cm LVOT VTI/AV VTI Ratio 0.5 LVOT Stroke Volume 41 ml LVOT CO 3.5 l/min LVOT CI
--- NOTE | 2022-07-22 00:31 | PM.IMHP ---
H&P: HPI History of Present Illness Date/Time: 07/22/22 00:31 Chief Complaint: 71 years old male with past medical history of obstructive sleep apnea on CPAP COPD AFib hypertension liver cirrhosis presented to the hospital with shortness of breath started few weeks ago worsening gradually worsening with activity associated with cough and increased sputum production white in color patient denies yellow sputum patient is on chronic antibiotic suppression therapy due to MRSA bacteremia shortness of breath became worse currently patient have shortness of breath at rest associated with wheezing at the ER patient was found to have acute COPD exacerbation chest x-ray negative for any infiltrate patient was treated with nebulizer treatment IV steroid admitted for further evaluation and treatment of COPD exacerbation EKG showed AFib with aberrant conduction and poor R-wave progression patient denies chest pain Review of Systems Review of Systems: 12 system review was negative [facility] Past Medical History Medical History (Updated 07/22/22 @ 00:35 by Aroldo Gurrola MD) Abscess Atrial fibrillation rate controlled BiPAP (biphasic positive airway pressure) dependence BPH (benign prostatic hyperplasia) CHF (congestive heart failure) has recovered had with atrial fib Chronic diastolic heart failure Cirrhosis COPD (chronic obstructive pulmonary disease) GERD (gastroesophageal reflux disease) History of CVA (cerebrovascular accident) History of DVT (deep vein thrombosis) Lipoma Extracted from his neck MRSA (methicillin resistant Staphylococcus aureus) infection The patient had a spinal abscess L1-L2 complicated was septicemia and then had 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 Pneumothorax on left Sleep apnea Surgical History Surgical History History of back surgery History of hip replacement on spine History of revision of total replacement of hip joint Family History Family History Mother Family history of cardiovascular disease Family history of coronary artery disease Father Family history of liver disease Sibling Hypertension Cerebrovascular accident Chronic obstructive pulmonary disease Social History Social History Social History: He lives with his who is a durable power assistant prosecuting attorney for healthcare. He has 2 children. 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 Patient used to smoke in [place] and used to drink socially. He desires to be a full code. No marijuana or illicit drugs. Smoking packs per day: 1 Smoking cigarettes per day: 20.0 Years smoked: 7 Smoking pack-years: 7.00 Smoking status: Never smoker Tobacco type: cigarettes Smoking end date: 06/06/81 Alcohol intake: former Substance use: never Substance use type: does not use Lack of Transportation: No Lack of Food: Never True Current Housing: I Have Housing Concerned About Future Housing: No Difficulty Paying Gas/Electric Bills: No Difficulty Paying for Meds: No Currently Unemployed: No Education: Associate Degree Difficulty w/ Childcare or Family Care: No Living arrangements: with family Gender identity (if verbalized by the patient): Male Spiritual care concerns: No Agree to blood products: Yes Meds Home Medications and Allergies Home Medications Medication Instructions Recorded Confirmed Type ferrous sulfate 324 mg (65 mg 324 mg PO BID 04/05/19 05/26/22 History iron) tablet,delayed release omeprazole 40 mg capsule,delayed 40 mg PO DAILY 04/05/19 05/26/22 History release tamsulosin 0.4 mg capsule (Flomax) 0.4 mg PO DAILY 04/05/19 05/26/22 History aspirin 81 mg tablet,delayed 81 mg PO DAILY 05/21/19 05/26/22 History release vitamin B12 500 mcg-folic acid 400 1 tablet PO DAILY 05/21/19 05/26/22 History mcg tablet cetiri
[2022-07-22] MEDS: FUROSEMIDE INJ 40 MG/4 ML VIAL IV PUSH ×2 (01:56→08:16)
[2022-07-22] MEDS: IPRATROPIUM BR 0.02% INH SOLN 0.5 MG/2.5 ML VIAL INHALATION ×4 (02:15→22:01)
[2022-07-22] MEDS: ALBUTEROL SULFATE NEB 2.5 MG/3 ML INH INHALATION ×4 (02:16→22:01)
--- NOTE | 2022-07-22 03:34 | ADMGEN ---
This patient, Mason Keys, was admitted to 2 Medical Room 242-01. Patient/family oriented to hospital policies and general routines including ID bracelet, bed and alarms, visiting hours, pain management, procedures, bathroom and other care routines, personal items, smoking policy, room service/diet, and visiting hours. Information on how to activate the Rapid Response Team has been discussed. Patient/Family are encouraged to report perceived risks to care and to ask questions if they do not understand what they are told or what they should do.
[2022-07-22] MEDS: ACETAMINOPHEN 325 MG TABLET 650 MG PO ×2 (04:01→10:42)
--- NOTE | 2022-07-22 04:10 | PCRCNOTE ---
pt using our S9 machine. Home settings of 18/14. Pt was unable to tolerate these settings this evening. Pressure decreased twice per pt request. Final pressure at 14/10. Advised pt that if he was going to be staying subsequent nights it might be helpful if he brought in his home machine; pt agreed.
[2022-07-22 06:14] LABS: Basophils Percent Auto 0.2 % (0.2-1.2); Hematocrit 45.5 % (42.0-52.0); Hemoglobin 14.5 g/dL (14.0-18.0); Immature Granulocyte Absolute 0.08 K/mm3 (0.00-0.031); Immature Granulocyte Percent A 0.8 % (0-0.5); Immature Platelet Fraction Pct 15.9 % (0.9-11.2); Lymphocytes Absolute Auto 0.41 K/mm3 (0.9-3.2); Lymphocytes Percent Auto 4.1 % (18.3-44.2); Mean Corpuscular HGB Conc 31.9 g/dl (32-36); Mean Corpuscular Volume 97.4 fl (80-100); Mean Platelet Volume 13.2 fl (7.4-10.4); Monocytes Absolute Auto 0.1 K/mm3 (0.1-0.6); Monocytes Percent Auto 0.7 % (2.6-8.5); Neutrophils Absolute Auto 9.5 K/mm3 (1.3-6.7); Neutrophils Percent Auto 94.2 % (45.5-73.1); Platelet Count Result 141 k/mm3 (150-375); Red Blood Count 4.67 M/mm3 (4.6-6.20); Red Cell Distribution Width 14.6 % (11.5-14.5); White Blood Count 10.1 K/mm3 (4.5-10.0)
[2022-07-22] MEDS: methylPREDNISolone SOD SUCC 40 MG VIAL IV PUSH ×3 (06:41→22:24)
[2022-07-22 06:46] LABS: Alanine Aminotransferase 29 U/L (6-50); Albumin Level 4.3 g/dL (3.5-5.1); Alkaline Phosphatase 115 U/L (38-126); Anion Gap 9 mmol/L (8-16); Aspartate Amino Transferase 33 U/L (17-59); Bilirubin,Total 1.2 mg/dL (0.2-1.3); Blood Urea Nitrogen 33 mg/dL (9-20); Calcium 9.5 mg/dL (8.4-10.2); Carbon Dioxide 29 mmol/L (22-30); Chloride 102 mmol/L (98-107); Creatine Kinase 134 U/L (55-170); Estimated CRCL calculation 44 ml/min; Estimated Glomerular Filt Rate 37; Glucose 173 mg/dL (65-110); Potassium 4.5 mmol/L (3.4-5.0); Sodium 140 mmol/L (137-145); Troponin I < 0.012 ng/mL (0.000-0.034)
[2022-07-22] MEDS: guaiFENesin 12 HR 600 MG TABCR PO ×2 (08:16→22:25)
[2022-07-22] MEDS: FAMOTIDINE 20 MG TABLET PO ×2 (08:16→22:30)
[2022-07-22] MEDS: APIXABAN 5 MG TABLET PO ×2 (08:16→22:25)
--- NOTE | 2022-07-22 13:57 | PC.NURSE ---
On 07/22/22, the student, [Wendy Verma], provided care and completed [facility] documentation on this patient. I have reviewed the student's documentation and agree with the findings.
--- NOTE | 2022-07-22 14:17 | PM.IMPN ---
Progress Note: A&P Assessment and Plan (1) COPD (chronic obstructive pulmonary disease): Qualifiers: COPD type: unspecified COPD Qualified Code(s): J44.9 - Chronic obstructive pulmonary disease, unspecified Code(s): J44.9 - Chronic obstructive pulmonary disease, unspecified Status: Chronic Assessment and Plan: Acute COPD exacerbation continue IV Solu-Medrol 40 mg q8h. wean as tolerated continue bronchodilators no indication for antibiotics at this time given no change in sputum quality. patient is maintained on daily doxycycline for suppression therapy due to history of MRSA bacteremia supportive care currently requiring 1 L supplemental O2. wean oxygen as tolerated. baseline oxygen requirement is 1-2 L bleed in at night, no daytime oxygen (2) CHF (congestive heart failure): Qualifiers: Heart failure type: unspecified Heart failure chronicity: chronic Qualified Code(s): I50.9 - Heart failure, unspecified Code(s): I50.9 - Heart failure, unspecified Status: Chronic Assessment and Plan: patient with history of diastolic CHF. Appears relatively euvolemic on exam. CXR with no evidence of pulmonary edema or other acute cardiopulmonary findings will check BNP patient being diuresed with Lasix 40 mg IV b.i.d.. Will plan to transition back to home p.o. Bumex 0.5 mg b.i.d. continue home spironolactone echocardiogram is pending monitor volume status closely with I&Os and daily weights (3) Abnormal EKG: Code(s): R94.31 - Abnormal electrocardiogram [ECG] [EKG] Status: Acute Assessment and Plan: EKG demonstrated atrial fibrillation with aberrant conduction echocardiogram is pending serial troponins negative patient on telemetry, reviewed today which showed atrial fibrillation. Continue to monitor (4) Atrial fibrillation: Qualifiers: Atrial fibrillation type: unspecified Qualified Code(s): I48.91 - Unspecified atrial fibrillation Code(s): I48.91 - Unspecified atrial fibrillation Status: Chronic Assessment and Plan: as above, telemetry and EKG demonstrated patient to be in atrial fibrillation with rate controlled continue home Eliquis (5) VALENTINA (obstructive sleep apnea): Code(s): G47.33 - Obstructive sleep apnea (adult) (pediatric) Status: Acute Assessment and Plan: continue home CPAP with 1-2 L bleed in at night (6) Unspecified essential hypertension: Code(s): I10 - Essential (primary) hypertension Status: Acute Assessment and Plan: blood pressures are reasonably controlled. Continue home Bumex, spironolactone, metoprolol succinate monitor BP trends Subjective Date/time seen: 07/22/22 14:17 Interval history: Date of service: 07/22/2022 Mason Keys is a 71-year-old male with a history of atrial fibrillation on chronic anticoagulation, COPD, VALENTINA on BiPAP, CHF, BPH, cirrhosis, and several other comorbidities who is seen in follow-up for COPD exacerbation and CHF exacerbation. Patient states his breathing is improved today. He is not sure if he is wheezing but he does have a severe and persistent hacking cough that is productive of clear phlegm. He feels short of breath and this is worsened when he has coughing spells. He endorses THOMAS and conversational dyspnea. Denies orthopnea. Denies chest pain or palpitations. Denies fevers, chills, nausea, or vomiting. He is tolerating his diet. He does endorse some mild weakness. He endorses chronic back pain and foot pain that he states is usually improved with Tylenol which he requests at this time. Review of Systems Review of Systems: All systems reviewed & are unremarkable except as noted in HPI and below Exam Narrative: General: Obese, chronically ill-appearing 71-year-old male, sitting up in bed, comfortable, NARD Neuro: awake, alert and oriented x4
[2022-07-22 15:42] LABS: NT Pro B Type Natriuretic Pept 1200 pg/mL (19.9-100)
[2022-07-22] MEDS: MAGNESIUM OXIDE 400 MG TABLET PO (16:35)
[2022-07-22] MEDS: FERROUS SULFATE 324 MG TABLET PO (16:36)
[2022-07-22] MEDS: DOXYCYCLINE HYCLATE 100 MG TABLET PO (16:36)
[2022-07-22] MEDS: BUMETANIDE 0.5 MG TABLET PO (16:36)
[2022-07-22] MEDS: ONDANSETRON INJ 4 MG/2 ML VIAL IV PUSH (19:29)
[2022-07-22] MEDS: GABAPENTIN 100 MG CAPSULE 200 MG PO (22:24)
[2022-07-22] MEDS: TAMSULOSIN HCL 0.4 MG CAPSULE PO (22:25)
[2022-07-22] MEDS: BACLOFEN 10 MG TABLET PO (22:30)
[2022-07-23] VITALS (17 sets, daily range): BP systolic 123–154; BP diastolic 71–94; PULSE 77–111; RESP 18–20; TEMP 36.4–36.8; O2SAT 96–100
--- NOTE | 2022-07-23 05:02 | PCRCNOTE ---
Window of time for administration has passed. See next scheduled administration.
[2022-07-23] MEDS: methylPREDNISolone SOD SUCC 40 MG VIAL IV PUSH ×3 (05:44→21:28)
[2022-07-23 06:19] LABS: Basophils Percent Auto 0.1 % (0.2-1.2); Eosinophils Percent Auto 0.1 % (0-4.4); Hematocrit 42.6 % (42.0-52.0); Hemoglobin 13.8 g/dL (14.0-18.0); Immature Granulocyte Percent A 0.6 % (0-0.5); Lymphocytes Absolute Auto 0.61 K/mm3 (0.9-3.2); Lymphocytes Percent Auto 3.8 % (18.3-44.2); Mean Corpuscular HGB Conc 32.4 g/dl (32-36); Mean Corpuscular Hemoglobin 30.7 pg (26-34); Mean Corpuscular Volume 94.9 fl (80-100); Mean Platelet Volume 12.5 fl (7.4-10.4); Monocytes Absolute Auto 0.6 K/mm3 (0.1-0.6); Monocytes Percent Auto 3.9 % (2.6-8.5); Neutrophils Absolute Auto 14.6 K/mm3 (1.3-6.7); Neutrophils Percent Auto 91.5 % (45.5-73.1); Platelet Count Result 145 k/mm3 (150-375); Red Blood Count 4.49 M/mm3 (4.6-6.20); Red Cell Distribution Width 14.5 % (11.5-14.5); White Blood Count 15.9 K/mm3 (4.5-10.0)
[2022-07-23 06:33] LABS: Alanine Aminotransferase 50 U/L (6-50); Albumin Level 4.2 g/dL (3.5-5.1); Alkaline Phosphatase 103 U/L (38-126); Anion Gap 7 mmol/L (8-16); Aspartate Amino Transferase 50 U/L (17-59); Blood Urea Nitrogen 48 mg/dL (9-20); Calcium 9.4 mg/dL (8.4-10.2); Carbon Dioxide 29 mmol/L (22-30); Chloride 102 mmol/L (98-107); Estimated CRCL calculation 38 ml/min; Estimated Glomerular Filt Rate 31; Glucose 184 mg/dL (65-110); Potassium 4.2 mmol/L (3.4-5.0); Sodium 138 mmol/L (137-145)
[2022-07-23] MEDS: ALBUTEROL SULFATE NEB 2.5 MG/3 ML INH INHALATION ×3 (08:00→20:06)
[2022-07-23] MEDS: IPRATROPIUM BR 0.02% INH SOLN 0.5 MG/2.5 ML VIAL INHALATION ×3 (08:00→20:06)
[2022-07-23] MEDS: PYRIDOXINE HCL 50 MG TABLET 100 MG PO (09:16)
[2022-07-23] MEDS: METOPROLOL SUCCINATE EXT REL 100 MG TABCR PO (09:16)
[2022-07-23] MEDS: MAGNESIUM OXIDE 400 MG TABLET PO ×2 (09:16→16:02)
[2022-07-23] MEDS: BUMETANIDE 0.5 MG TABLET PO ×2 (09:17→16:02)
[2022-07-23] MEDS: guaiFENesin 12 HR 600 MG TABCR PO ×2 (09:17→21:29)
[2022-07-23] MEDS: APIXABAN 5 MG TABLET PO ×2 (09:17→21:29)
[2022-07-23] MEDS: FOLIC ACID 1 MG TABLET PO (09:17)
[2022-07-23] MEDS: FERROUS SULFATE 324 MG TABLET PO ×2 (09:17→16:02)
[2022-07-23] MEDS: ASPIRIN 81 MG ENTERIC TABLET PO (09:18)
[2022-07-23] MEDS: POTASSIUM CHLORIDE 20 MEQ TABLET.ER PO (09:18)
[2022-07-23] MEDS: ROFLUMILAST 500 MCG TABLET PO (09:18)
[2022-07-23] MEDS: FLUTICASONE/UMECLIDIN/VILANTER 100-62.5-25 MCG ELLIPTA 1 PUFF INHALATION (09:50)
[2022-07-23] MEDS: DOXYCYCLINE HYCLATE 100 MG TABLET PO ×2 (11:44→21:28)
--- NOTE | 2022-07-23 14:22 | P.PNIM_ITS ---
Progress Note: A&P Assessment and Plan (1) COPD (chronic obstructive pulmonary disease): Qualifiers: COPD type: unspecified COPD Qualified Code(s): J44.9 - Chronic obstructive pulmonary disease, unspecified Code(s): J44.9 - Chronic obstructive pulmonary disease, unspecified Status: Chronic Assessment and Plan: Acute COPD exacerbation * continue IV Solu-Medrol 40 mg, wean to q12h * continue bronchodilators * given can patient's complaints of increased sputum production, will begin antibiotic therapy. Patient is on daily doxycycline suppressive therapy 100 mg daily due to history of MRSA bacteremia. Will increase to twice daily dosing for therapeutic affect. QTc reviewed and is not prolonged * sputum culture is pending * supportive care * currently requiring 2 L supplemental O2. wean oxygen as tolerated. baseline oxygen requirement is 1-2 L bleed in at night, no daytime oxygen (2) CHF (congestive heart failure): Qualifiers: Heart failure type: unspecified Heart failure chronicity: chronic Qualified Code(s): I50.9 - Heart failure, unspecified Code(s): I50.9 - Heart failure, unspecified Status: Chronic Assessment and Plan: patient with history of diastolic CHF. * Appears relatively euvolemic on exam. * CXR with no evidence of pulmonary edema or other acute cardiopulmonary findings * BNP only mildly elevated at 1200 * Received Lasix 40 mg IV bid on admission which has been discontinued as pt is euvolemic * Continue home Bumex 0.5 mg BID * spironolactone on hold * echocardiogram completed with normal EF and indeterminate diastolic function * monitor volume status closely with I&Os and daily weights (3) Elevated serum creatinine: Code(s): R79.89 - Other specified abnormal findings of blood chemistry Status: Acute Assessment and Plan: patient does not have history of CKD, however review of labs suggest GFR baseline to be around 45-50. * serum creatinine is elevated up to 2.1 today * suspect this is secondary to IV diuresis which has been discontinued * hold home spironolactone * monitor kidney function closely * anticipate improvement with discontinuation of IV furosemide. Consider further workup as appropriate if no improvement (4) Abnormal EKG: Code(s): R94.31 - Abnormal electrocardiogram [ECG] [EKG] Status: Acute Assessment and Plan: EKG demonstrated atrial fibrillation with aberrant conduction * echocardiogram unremarkable * serial troponins negative * patient has been monitored on telemetry for 24 hours with no significant dysrhythmias. Will discontinue at this time (5) Atrial fibrillation: Qualifiers: Atrial fibrillation type: unspecified Qualified Code(s): I48.91 - Unspecified atrial fibrillation Code(s): I48.91 - Unspecified atrial fibrillation Status: Chronic Assessment and Plan: as above, telemetry and EKG demonstrated patient to be in atrial fibrillation with rate controlled * continue home Eliquis (6) VALENTINA (obstructive sleep apnea): Code(s): G47.33 - Obstructive sleep apnea (adult) (pediatric) Status: Acute Assessment and Plan: continue home CPAP with 1-2 L bleed in at night (7) Unspecified essential hypertension: Code(s): I10 - Essential (primary) hypertension Status: Acute Assessment and Plan: blood pressures are reasonably controlled. * continue home Bumex and metoprolol succinate. hold spironolactone
--- NOTE | 2022-07-23 14:22 | PM.IMPN ---
Progress Note: A&P Assessment and Plan (1) COPD (chronic obstructive pulmonary disease): Qualifiers: COPD type: unspecified COPD Qualified Code(s): J44.9 - Chronic obstructive pulmonary disease, unspecified Code(s): J44.9 - Chronic obstructive pulmonary disease, unspecified Status: Chronic Assessment and Plan: Acute COPD exacerbation continue IV Solu-Medrol 40 mg, wean to q12h continue bronchodilators given can patient's complaints of increased sputum production, will begin antibiotic therapy. Patient is on daily doxycycline suppressive therapy 100 mg daily due to history of MRSA bacteremia. Will increase to twice daily dosing for therapeutic affect. QTc reviewed and is not prolonged sputum culture is pending supportive care currently requiring 2 L supplemental O2. wean oxygen as tolerated. baseline oxygen requirement is 1-2 L bleed in at night, no daytime oxygen (2) CHF (congestive heart failure): Qualifiers: Heart failure type: unspecified Heart failure chronicity: chronic Qualified Code(s): I50.9 - Heart failure, unspecified Code(s): I50.9 - Heart failure, unspecified Status: Chronic Assessment and Plan: patient with history of diastolic CHF. Appears relatively euvolemic on exam. CXR with no evidence of pulmonary edema or other acute cardiopulmonary findings BNP only mildly elevated at 1200 Received Lasix 40 mg IV bid on admission which has been discontinued as pt is euvolemic Continue home Bumex 0.5 mg BID spironolactone on hold echocardiogram completed with normal EF and indeterminate diastolic function monitor volume status closely with I&Os and daily weights (3) Elevated serum creatinine: Code(s): R79.89 - Other specified abnormal findings of blood chemistry Status: Acute Assessment and Plan: patient does not have history of CKD, however review of labs suggest GFR baseline to be around 45-50. serum creatinine is elevated up to 2.1 today suspect this is secondary to IV diuresis which has been discontinued hold home spironolactone monitor kidney function closely anticipate improvement with discontinuation of IV furosemide. Consider further workup as appropriate if no improvement (4) Abnormal EKG: Code(s): R94.31 - Abnormal electrocardiogram [ECG] [EKG] Status: Acute Assessment and Plan: EKG demonstrated atrial fibrillation with aberrant conduction echocardiogram unremarkable serial troponins negative patient has been monitored on telemetry for 24 hours with no significant dysrhythmias. Will discontinue at this time (5) Atrial fibrillation: Qualifiers: Atrial fibrillation type: unspecified Qualified Code(s): I48.91 - Unspecified atrial fibrillation Code(s): I48.91 - Unspecified atrial fibrillation Status: Chronic Assessment and Plan: as above, telemetry and EKG demonstrated patient to be in atrial fibrillation with rate controlled continue home Eliquis (6) VALENTINA (obstructive sleep apnea): Code(s): G47.33 - Obstructive sleep apnea (adult) (pediatric) Status: Acute Assessment and Plan: continue home CPAP with 1-2 L bleed in at night (7) Unspecified essential hypertension: Code(s): I10 - Essential (primary) hypertension Status: Acute Assessment and Plan: blood pressures are reasonably controlled. continue home Bumex and metoprolol succinate. hold spironolactone monitor BP trends Subjective Date/time seen: 07/23/22 14:22 Interval history: Date of service: 07/23/2022 Mason Keys is a 71-year-old male with a history of atrial fibrillation on chronic anticoagulation, COPD, VALENTINA on BiPAP, CHF, BPH, cirrhosis, and several other comorbidities who is seen in follow-up for COPD exacerbation and CHF exacerbation. he is feeling better today. States that his breathi
[2022-07-23] MEDS: BACLOFEN 10 MG TABLET PO (21:28)
[2022-07-23] MEDS: TAMSULOSIN HCL 0.4 MG CAPSULE PO (21:28)
[2022-07-23] MEDS: GABAPENTIN 100 MG CAPSULE 200 MG PO (21:29)
[2022-07-23] MEDS: FAMOTIDINE 20 MG TABLET PO (21:29)
[2022-07-24] VITALS (18 sets, daily range): BP systolic 131–149; BP diastolic 72–87; PULSE 77–105; RESP 12–22; TEMP 36.3–36.9; O2SAT 97–100
[2022-07-24] MEDS: IPRATROPIUM BR 0.02% INH SOLN 0.5 MG/2.5 ML VIAL INHALATION ×4 (02:00→20:14)
[2022-07-24] MEDS: ALBUTEROL SULFATE NEB 2.5 MG/3 ML INH INHALATION ×4 (02:00→20:14)
[2022-07-24] MEDS: methylPREDNISolone SOD SUCC 40 MG VIAL IV PUSH ×2 (05:08→17:19)
[2022-07-24 06:27] LABS: Basophils Percent Auto 0.1 % (0.2-1.2); Eosinophils Percent Auto 0.2 % (0-4.4); Hemoglobin 13.6 g/dL (14.0-18.0); Immature Granulocyte Absolute 0.12 K/mm3 (0.00-0.031); Immature Granulocyte Percent A 0.8 % (0-0.5); Lymphocytes Absolute Auto 0.52 K/mm3 (0.9-3.2); Lymphocytes Percent Auto 3.5 % (18.3-44.2); Mean Corpuscular HGB Conc 31.6 g/dl (32-36); Mean Corpuscular Hemoglobin 30.9 pg (26-34); Mean Corpuscular Volume 97.7 fl (80-100); Mean Platelet Volume 12.9 fl (7.4-10.4); Monocytes Absolute Auto 0.5 K/mm3 (0.1-0.6); Monocytes Percent Auto 3.6 % (2.6-8.5); Neutrophils Absolute Auto 13.6 K/mm3 (1.3-6.7); Neutrophils Percent Auto 91.8 % (45.5-73.1); Platelet Count Result 130 k/mm3 (150-375); Red Cell Distribution Width 14.5 % (11.5-14.5); White Blood Count 14.8 K/mm3 (4.5-10.0)
[2022-07-24 06:43] LABS: Alanine Aminotransferase 65 U/L (6-50); Alkaline Phosphatase 92 U/L (38-126); Anion Gap 4 mmol/L (8-16); Aspartate Amino Transferase 41 U/L (17-59); Bilirubin,Total 0.7 mg/dL (0.2-1.3); Blood Urea Nitrogen 52 mg/dL (9-20); Calcium 8.8 mg/dL (8.4-10.2); Carbon Dioxide 31 mmol/L (22-30); Chloride 98 mmol/L (98-107); Estimated CRCL calculation 42 ml/min; Estimated Glomerular Filt Rate 35; Glucose 175 mg/dL (65-110); Potassium 4.1 mmol/L (3.4-5.0); Sodium 133 mmol/L (137-145)
[2022-07-24] MEDS: FLUTICASONE/UMECLIDIN/VILANTER 100-62.5-25 MCG ELLIPTA 1 PUFF INHALATION (07:38)
[2022-07-24] MEDS: FOLIC ACID 1 MG TABLET PO (08:18)
[2022-07-24] MEDS: POTASSIUM CHLORIDE 20 MEQ TABLET.ER PO (08:18)
[2022-07-24] MEDS: guaiFENesin 12 HR 600 MG TABCR PO ×2 (08:18→21:22)
[2022-07-24] MEDS: APIXABAN 5 MG TABLET PO ×2 (08:18→21:23)
[2022-07-24] MEDS: ROFLUMILAST 500 MCG TABLET PO (08:18)
[2022-07-24] MEDS: MAGNESIUM OXIDE 400 MG TABLET PO ×2 (08:18→17:20)
[2022-07-24] MEDS: PYRIDOXINE HCL 50 MG TABLET 100 MG PO (08:19)
[2022-07-24] MEDS: METOPROLOL SUCCINATE EXT REL 100 MG TABCR PO (08:19)
[2022-07-24] MEDS: ASPIRIN 81 MG ENTERIC TABLET PO (08:19)
[2022-07-24] MEDS: FAMOTIDINE 20 MG TABLET PO ×2 (08:19→21:23)
[2022-07-24] MEDS: DOXYCYCLINE HYCLATE 100 MG TABLET PO ×2 (08:19→21:23)
[2022-07-24] MEDS: FERROUS SULFATE 324 MG TABLET PO ×2 (08:22→17:20)
--- NOTE | 2022-07-24 15:33 | P.PNIM_ITS ---
Progress Note: A&P Assessment and Plan (1) COPD (chronic obstructive pulmonary disease): Qualifiers: COPD type: unspecified COPD Qualified Code(s): J44.9 - Chronic obstructive pulmonary disease, unspecified Code(s): J44.9 - Chronic obstructive pulmonary disease, unspecified Status: Chronic Assessment and Plan: Acute COPD exacerbation * continue IV Solu-Medrol 40 mg q12h. Plan to transition to p.o. prednisone tomorrow morning * continue bronchodilators * given increased sputum production, continue with doxycycline 100 mg b.i.d. Patient is chronically on doxycycline suppressive therapy 100 mg daily due to history of MRSA bacteremia. * sputum culture is pending * supportive care * currently requiring 2 L supplemental O2. wean oxygen as tolerated. baseline oxygen requirement is 1-2 L bleed in at night, no daytime oxygen * Plan for home O2 eval prior to discharge (2) CHF (congestive heart failure): Qualifiers: Heart failure type: unspecified Heart failure chronicity: chronic Qualified Code(s): I50.9 - Heart failure, unspecified Code(s): I50.9 - Heart failure, unspecified Status: Chronic Assessment and Plan: patient with history of diastolic CHF. * Appears relatively euvolemic on exam. * CXR with no evidence of pulmonary edema or other acute cardiopulmonary findings * BNP only mildly elevated at 1200 * Received Lasix 40 mg IV bid on admission which has been discontinued as pt is euvolemic * Hold home Bumex 0.5 mg BID * spironolactone on hold * echocardiogram completed with normal EF and indeterminate diastolic function * monitor volume status closely with I&Os and daily weights (3) Elevated serum creatinine: Code(s): R79.89 - Other specified abnormal findings of blood chemistry Status: Acute Assessment and Plan: patient does not have history of CKD, however review of labs suggest GFR baseline to be around 45-50. * GFR in the 30s this admission * suspect this is secondary to IV diuresis which has been discontinued * slight improved today with GFR 35. Creatinine improved to 1.9. Slight increase in BUN noted * hold home spironolactone and Bumex * monitor kidney function closely * anticipate continue improvement with discontinuation of IV furosemide. Consider further workup as appropriate if no improvement (4) Abnormal EKG: Code(s): R94.31 - Abnormal electrocardiogram [ECG] [EKG] Status: Acute Assessment and Plan: EKG demonstrated atrial fibrillation with aberrant conduction * echocardiogram unremarkable * serial troponins negative * patient was monitored on telemetry for 24 hours with no significant dysrhythmias. Telemetry discontinued on 07/23 (5) Atrial fibrillation: Qualifiers: Atrial fibrillation type: unspecified Qualified Code(s): I48.91 - Unspecified atrial fibrillation Code(s): I48.91 - Unspecified atrial fibrillation Status: Chronic Assessment and Plan: as above, telemetry and EKG demonstrated patient to be in atrial fibrillation with rate controlled * continue home Eliquis (6) VALENTINA (obstructive sleep apnea): Code(s): G47.33 - Obstructive sleep apnea (adult) (pediatric) Status: Acute Assessment and Plan: continue home CPAP with 1-2 L bleed in at night (7) Unspecified essential hypertension: Code(s): I10 - Essential (primary) hypertension Status: Acute Assessment and Plan: blood pressures are st
--- NOTE | 2022-07-24 15:33 | PM.IMPN ---
Progress Note: A&P Assessment and Plan (1) COPD (chronic obstructive pulmonary disease): Qualifiers: COPD type: unspecified COPD Qualified Code(s): J44.9 - Chronic obstructive pulmonary disease, unspecified Code(s): J44.9 - Chronic obstructive pulmonary disease, unspecified Status: Chronic Assessment and Plan: Acute COPD exacerbation continue IV Solu-Medrol 40 mg q12h. Plan to transition to p.o. prednisone tomorrow morning continue bronchodilators given increased sputum production, continue with doxycycline 100 mg b.i.d. Patient is chronically on doxycycline suppressive therapy 100 mg daily due to history of MRSA bacteremia. sputum culture is pending supportive care currently requiring 2 L supplemental O2. wean oxygen as tolerated. baseline oxygen requirement is 1-2 L bleed in at night, no daytime oxygen Plan for home O2 eval prior to discharge (2) CHF (congestive heart failure): Qualifiers: Heart failure type: unspecified Heart failure chronicity: chronic Qualified Code(s): I50.9 - Heart failure, unspecified Code(s): I50.9 - Heart failure, unspecified Status: Chronic Assessment and Plan: patient with history of diastolic CHF. Appears relatively euvolemic on exam. CXR with no evidence of pulmonary edema or other acute cardiopulmonary findings BNP only mildly elevated at 1200 Received Lasix 40 mg IV bid on admission which has been discontinued as pt is euvolemic Hold home Bumex 0.5 mg BID spironolactone on hold echocardiogram completed with normal EF and indeterminate diastolic function monitor volume status closely with I&Os and daily weights (3) Elevated serum creatinine: Code(s): R79.89 - Other specified abnormal findings of blood chemistry Status: Acute Assessment and Plan: patient does not have history of CKD, however review of labs suggest GFR baseline to be around 45-50. GFR in the 30s this admission suspect this is secondary to IV diuresis which has been discontinued slight improved today with GFR 35. Creatinine improved to 1.9. Slight increase in BUN noted hold home spironolactone and Bumex monitor kidney function closely anticipate continue improvement with discontinuation of IV furosemide. Consider further workup as appropriate if no improvement (4) Abnormal EKG: Code(s): R94.31 - Abnormal electrocardiogram [ECG] [EKG] Status: Acute Assessment and Plan: EKG demonstrated atrial fibrillation with aberrant conduction echocardiogram unremarkable serial troponins negative patient was monitored on telemetry for 24 hours with no significant dysrhythmias. Telemetry discontinued on 07/23 (5) Atrial fibrillation: Qualifiers: Atrial fibrillation type: unspecified Qualified Code(s): I48.91 - Unspecified atrial fibrillation Code(s): I48.91 - Unspecified atrial fibrillation Status: Chronic Assessment and Plan: as above, telemetry and EKG demonstrated patient to be in atrial fibrillation with rate controlled continue home Eliquis (6) VALENTINA (obstructive sleep apnea): Code(s): G47.33 - Obstructive sleep apnea (adult) (pediatric) Status: Acute Assessment and Plan: continue home CPAP with 1-2 L bleed in at night (7) Unspecified essential hypertension: Code(s): I10 - Essential (primary) hypertension Status: Acute Assessment and Plan: blood pressures are stable. Last BP 140/75 continue metoprolol succinate. hold spironolactone and Bumex as above monitor BP trends Subjective Date/time seen: 07/24/22 15:33 Interval history: Date of service: 07/24/2022 Mason D Keys is a 71-year-old male with a history of atrial fibrillation on chronic anticoagulation, COPD, VALENTINA on BiPAP, CHF, BPH, cirrhosis, and several other comorbidities who is seen in follow-up for COPD exacerbat
[2022-07-24] MEDS: TAMSULOSIN HCL 0.4 MG CAPSULE PO (21:22)
[2022-07-24] MEDS: GABAPENTIN 100 MG CAPSULE 200 MG PO (21:23)
[2022-07-24] MEDS: BACLOFEN 10 MG TABLET PO (21:23)
[2022-07-25] VITALS (17 sets, daily range): BP systolic 130–149; BP diastolic 77–98; PULSE 70–86; RESP 16–20; TEMP 36.4–36.9; O2SAT 96–100
[2022-07-25] MEDS: IPRATROPIUM BR 0.02% INH SOLN 0.5 MG/2.5 ML VIAL INHALATION ×4 (01:55→20:30)
[2022-07-25] MEDS: ALBUTEROL SULFATE NEB 2.5 MG/3 ML INH INHALATION ×4 (01:55→20:30)
[2022-07-25 05:45] LABS: Hematocrit 43.4 % (42.0-52.0); Hemoglobin 13.7 g/dL (14.0-18.0); Mean Corpuscular HGB Conc 31.6 g/dl (32-36); Mean Corpuscular Hemoglobin 30.7 pg (26-34); Mean Corpuscular Volume 97.3 fl (80-100); Mean Platelet Volume 12.9 fl (7.4-10.4); Platelet Count Result 140 k/mm3 (150-375); Red Blood Count 4.46 M/mm3 (4.6-6.20); Red Cell Distribution Width 14.2 % (11.5-14.5); White Blood Count 14.1 K/mm3 (4.5-10.0)
[2022-07-25 05:58] LABS: Anion Gap 5 mmol/L (8-16); Blood Urea Nitrogen 48 mg/dL (9-20); Calcium 8.5 mg/dL (8.4-10.2); Carbon Dioxide 29 mmol/L (22-30); Chloride 100 mmol/L (98-107); Estimated CRCL calculation 52 ml/min; Estimated Glomerular Filt Rate 46; Glucose 123 mg/dL (65-110); Potassium 3.9 mmol/L (3.4-5.0); Sodium 134 mmol/L (137-145)
[2022-07-25] MEDS: PYRIDOXINE HCL 50 MG TABLET 100 MG PO (09:04)
[2022-07-25] MEDS: DOXYCYCLINE HYCLATE 100 MG TABLET PO ×2 (09:05→20:15)
[2022-07-25] MEDS: guaiFENesin 12 HR 600 MG TABCR PO ×2 (09:05→20:14)
[2022-07-25] MEDS: FAMOTIDINE 20 MG TABLET PO ×2 (09:05→20:14)
[2022-07-25] MEDS: MAGNESIUM OXIDE 400 MG TABLET PO ×2 (09:05→17:14)
[2022-07-25] MEDS: FOLIC ACID 1 MG TABLET PO (09:05)
[2022-07-25] MEDS: ASPIRIN 81 MG ENTERIC TABLET PO (09:05)
[2022-07-25] MEDS: FERROUS SULFATE 324 MG TABLET PO ×2 (09:06→17:14)
[2022-07-25] MEDS: METOPROLOL SUCCINATE EXT REL 100 MG TABCR PO (09:06)
[2022-07-25] MEDS: ROFLUMILAST 500 MCG TABLET PO (09:06)
[2022-07-25] MEDS: POTASSIUM CHLORIDE 20 MEQ TABLET.ER PO (09:10)
[2022-07-25] MEDS: APIXABAN 5 MG TABLET PO ×2 (09:10→20:14)
[2022-07-25] MEDS: predniSONE 20 MG TABLET 40 MG PO (09:11)
[2022-07-25] MEDS: FLUTICASONE/UMECLIDIN/VILANTER 100-62.5-25 MCG ELLIPTA 1 PUFF INHALATION (09:40)
--- NOTE | 2022-07-25 13:01 | P.PNIM_ITS ---
Progress Note: A&P Assessment and Plan (1) COPD (chronic obstructive pulmonary disease): Qualifiers: COPD type: unspecified COPD Qualified Code(s): J44.9 - Chronic obstructive pulmonary disease, unspecified Code(s): J44.9 - Chronic obstructive pulmonary disease, unspecified Status: Chronic Assessment and Plan: Acute COPD exacerbation * improved with IV Solu-Medrol * weaned to p.o. prednisone 40 mg daily * continue bronchodilators * given increased sputum production, continue with doxycycline 100 mg b.i.d. Patient is chronically on doxycycline suppressive therapy 100 mg daily due to history of MRSA bacteremia. * sputum culture is negative * supportive care provided * has been weaned to room air and is maintaining adequate O2 sats. Reportedly did have desaturation with activity. continue to monitor O2 sats and provide supplemental O2 as needed to maintain sats 90% or above * patient will need home O2 eval prior to discharge. Hopeful discharge tomorrow if continued improvement (2) CHF (congestive heart failure): Qualifiers: Heart failure type: unspecified Heart failure chronicity: chronic Qualified Code(s): I50.9 - Heart failure, unspecified Code(s): I50.9 - Heart failure, unspecified Status: Chronic Assessment and Plan: patient with history of diastolic CHF. * Appears relatively euvolemic on exam. * CXR with no evidence of pulmonary edema or other acute cardiopulmonary findings * BNP only mildly elevated at 1200 * Received Lasix 40 mg IV bid on admission which has been discontinued as pt is euvolemic * continue home Bumex 0.5 mg BID * resume spironolactone * echocardiogram completed with normal EF and indeterminate diastolic function * monitor volume status closely with I&Os and daily weights (3) Elevated serum creatinine: Code(s): R79.89 - Other specified abnormal findings of blood chemistry Status: Acute Assessment and Plan: patient does not have a documented history of CKD, however review of labs suggest GFR baseline to be around 45-50. * GFR in the 30s this admission * suspect this is secondary to IV diuresis which has been discontinued * improved today with GFR 46. Creatinine improved to 1.5. * will resume home Bumex and spironolactone given returned to baseline * monitor kidney function closely (4) Abnormal EKG: Code(s): R94.31 - Abnormal electrocardiogram [ECG] [EKG] Status: Acute Assessment and Plan: EKG demonstrated atrial fibrillation with aberrant conduction * echocardiogram unremarkable * serial troponins negative * patient was monitored on telemetry for 24 hours with no significant dysrhythmias. Telemetry discontinued on 07/23 (5) Atrial fibrillation: Qualifiers: Atrial fibrillation type: unspecified Qualified Code(s): I48.91 - Unspecified atrial fibrillation Code(s): I48.91 - Unspecified atrial fibrillation Status: Chronic Assessment and Plan: as above, telemetry and EKG demonstrated patient to be in atrial fibrillation with rate controlled * continue home Eliquis (6) VALENTINA (obstructive sleep apnea): Code(s): G47.33 - Obstructive sleep apnea (adult) (pediatric) Status: Acute Assessment and Plan: continue home CPAP with 1-2 L bleed in at night (7) Unspecified essential hypertension: Code(s): I10 - Essential (primary) hypertension Status: Acute Assessment and Plan: blood pressures are stabl
--- NOTE | 2022-07-25 13:01 | PM.IMPN ---
Progress Note: A&P Assessment and Plan (1) COPD (chronic obstructive pulmonary disease): Qualifiers: COPD type: unspecified COPD Qualified Code(s): J44.9 - Chronic obstructive pulmonary disease, unspecified Code(s): J44.9 - Chronic obstructive pulmonary disease, unspecified Status: Chronic Assessment and Plan: Acute COPD exacerbation improved with IV Solu-Medrol weaned to p.o. prednisone 40 mg daily continue bronchodilators given increased sputum production, continue with doxycycline 100 mg b.i.d. Patient is chronically on doxycycline suppressive therapy 100 mg daily due to history of MRSA bacteremia. sputum culture is negative supportive care provided has been weaned to room air and is maintaining adequate O2 sats. Reportedly did have desaturation with activity. continue to monitor O2 sats and provide supplemental O2 as needed to maintain sats 90% or above patient will need home O2 eval prior to discharge. Hopeful discharge tomorrow if continued improvement (2) CHF (congestive heart failure): Qualifiers: Heart failure type: unspecified Heart failure chronicity: chronic Qualified Code(s): I50.9 - Heart failure, unspecified Code(s): I50.9 - Heart failure, unspecified Status: Chronic Assessment and Plan: patient with history of diastolic CHF. Appears relatively euvolemic on exam. CXR with no evidence of pulmonary edema or other acute cardiopulmonary findings BNP only mildly elevated at 1200 Received Lasix 40 mg IV bid on admission which has been discontinued as pt is euvolemic continue home Bumex 0.5 mg BID resume spironolactone echocardiogram completed with normal EF and indeterminate diastolic function monitor volume status closely with I&Os and daily weights (3) Elevated serum creatinine: Code(s): R79.89 - Other specified abnormal findings of blood chemistry Status: Acute Assessment and Plan: patient does not have a documented history of CKD, however review of labs suggest GFR baseline to be around 45-50. GFR in the 30s this admission suspect this is secondary to IV diuresis which has been discontinued improved today with GFR 46. Creatinine improved to 1.5. will resume home Bumex and spironolactone given returned to baseline monitor kidney function closely (4) Abnormal EKG: Code(s): R94.31 - Abnormal electrocardiogram [ECG] [EKG] Status: Acute Assessment and Plan: EKG demonstrated atrial fibrillation with aberrant conduction echocardiogram unremarkable serial troponins negative patient was monitored on telemetry for 24 hours with no significant dysrhythmias. Telemetry discontinued on 07/23 (5) Atrial fibrillation: Qualifiers: Atrial fibrillation type: unspecified Qualified Code(s): I48.91 - Unspecified atrial fibrillation Code(s): I48.91 - Unspecified atrial fibrillation Status: Chronic Assessment and Plan: as above, telemetry and EKG demonstrated patient to be in atrial fibrillation with rate controlled continue home Eliquis (6) VALENTINA (obstructive sleep apnea): Code(s): G47.33 - Obstructive sleep apnea (adult) (pediatric) Status: Acute Assessment and Plan: continue home CPAP with 1-2 L bleed in at night (7) Unspecified essential hypertension: Code(s): I10 - Essential (primary) hypertension Status: Acute Assessment and Plan: blood pressures are stable. Last BP 140/75 continue metoprolol succinate. resume spironolactone and Bumex as above monitor BP trends Subjective Date/time seen: 07/25/22 13:01 Interval history: Date of service: 07/25/2022 Mason Kramer Keys is a 71-year-old male with a history of atrial fibrillation on chronic anticoagulation, COPD, VALENTINA on BiPAP, CHF, BPH, cirrhosis, and several other comorbidities who is seen in follow-up for COPD exmagalys
[2022-07-25] MEDS: ACETAMINOPHEN 325 MG TABLET 650 MG PO (18:09)
[2022-07-25] MEDS: CALCIUM CARBONATE (TUMS) 500 MG (200 MG ELEMENTAL) PO (18:10)
[2022-07-25] MEDS: TAMSULOSIN HCL 0.4 MG CAPSULE PO (20:14)
[2022-07-25] MEDS: GABAPENTIN 100 MG CAPSULE 200 MG PO (20:15)
[2022-07-25] MEDS: BACLOFEN 10 MG TABLET PO (20:20)
[2022-07-26] VITALS (14 sets, daily range): BP systolic 123–155; BP diastolic 70–90; PULSE 76–89; RESP 12–21; TEMP 36.6–36.8; O2SAT 95–100
[2022-07-26] MEDS: IPRATROPIUM BR 0.02% INH SOLN 0.5 MG/2.5 ML VIAL INHALATION ×3 (01:37→19:14)
[2022-07-26] MEDS: ALBUTEROL SULFATE NEB 2.5 MG/3 ML INH INHALATION ×3 (01:38→19:13)
[2022-07-26 04:53] LABS: Hematocrit 41.4 % (42.0-52.0); Immature Platelet Fraction Pct 16.3 % (0.9-11.2); Mean Corpuscular HGB Conc 31.4 g/dl (32-36); Mean Corpuscular Hemoglobin 29.8 pg (26-34); Platelet Count Result 134 k/mm3 (150-375); Red Blood Count 4.36 M/mm3 (4.6-6.20); Red Cell Distribution Width 13.9 % (11.5-14.5); White Blood Count 13.5 K/mm3 (4.5-10.0)
[2022-07-26 04:56] LABS: Anion Gap 2 mmol/L (8-16); Blood Urea Nitrogen 39 mg/dL (9-20); Calcium 8.5 mg/dL (8.4-10.2); Carbon Dioxide 30 mmol/L (22-30); Chloride 104 mmol/L (98-107); Estimated CRCL calculation 59 ml/min; Estimated Glomerular Filt Rate 54; Glucose 110 mg/dL (65-110); Sodium 136 mmol/L (137-145)
[2022-07-26] MEDS: HYDROcodone/acetaminophen (*CRX) 5-325 MG TABLET 1 TAB PO (08:18)
[2022-07-26] MEDS: DOXYCYCLINE HYCLATE 100 MG TABLET PO ×2 (08:19→20:02)
[2022-07-26] MEDS: PYRIDOXINE HCL 50 MG TABLET 100 MG PO (08:19)
[2022-07-26] MEDS: predniSONE 20 MG TABLET 40 MG PO (08:20)
[2022-07-26] MEDS: FAMOTIDINE 20 MG TABLET PO ×2 (08:20→20:03)
[2022-07-26] MEDS: POTASSIUM CHLORIDE 20 MEQ TABLET.ER PO (08:20)
[2022-07-26] MEDS: MAGNESIUM OXIDE 400 MG TABLET PO ×2 (08:20→17:42)
[2022-07-26] MEDS: APIXABAN 5 MG TABLET PO ×2 (08:20→20:02)
[2022-07-26] MEDS: guaiFENesin 12 HR 600 MG TABCR PO ×2 (08:20→20:02)
[2022-07-26] MEDS: ASPIRIN 81 MG ENTERIC TABLET PO (08:20)
[2022-07-26] MEDS: FOLIC ACID 1 MG TABLET PO (08:20)
[2022-07-26] MEDS: METOPROLOL SUCCINATE EXT REL 100 MG TABCR PO (08:21)
[2022-07-26] MEDS: ROFLUMILAST 500 MCG TABLET PO (08:21)
[2022-07-26] MEDS: FERROUS SULFATE 324 MG TABLET PO ×2 (08:58→17:41)
[2022-07-26] MEDS: BUMETANIDE 0.5 MG TABLET PO ×2 (08:58→17:41)
--- NOTE | 2022-07-26 11:51 | P.PNIM_ITS ---
Progress Note: A&P Assessment and Plan (1) COPD (chronic obstructive pulmonary disease): Qualifiers: COPD type: unspecified COPD Qualified Code(s): J44.9 - Chronic obstructive pulmonary disease, unspecified Code(s): J44.9 - Chronic obstructive pulmonary disease, unspecified Status: Chronic Assessment and Plan: Acute COPD exacerbation * improved with IV Solu-Medrol * weaned to p.o. prednisone 40 mg daily which will be continued for 5 days * continue bronchodilators. Albuterol and ipratropium nebs q.6 hours as needed * given increased sputum production, continue with doxycycline 100 mg b.i.d. Patient is chronically on doxycycline suppressive therapy 100 mg daily due to history of MRSA bacteremia. * sputum culture is negative * supportive care provided * has been weaned to room air and is maintaining adequate O2 sats. Reportedly having desaturation with activity. continue to monitor O2 sats and provide supplemental O2 as needed to maintain sats 90% or above * patient will need home O2 eval prior to discharge. Patient already has home oxygen which he uses at night. He may require supplemental O2 with activity (2) CHF (congestive heart failure): Qualifiers: Heart failure chronicity: chronic Heart failure type: unspecified Qualified Code(s): I50.9 - Heart failure, unspecified Code(s): I50.9 - Heart failure, unspecified Status: Chronic Assessment and Plan: patient with history of diastolic CHF. * Patient is euvolemic on exam. * CXR with no evidence of pulmonary edema or other acute cardiopulmonary findings * BNP only mildly elevated at 1200 * Received Lasix 40 mg IV bid on admission which has been discontinued as pt is euvolemic * continue home Bumex 0.5 mg BID * continue spironolactone * echocardiogram completed with normal EF and indeterminate diastolic function * monitor volume status closely with I&Os and daily weights (3) Elevated serum creatinine: Code(s): R79.89 - Other specified abnormal findings of blood chemistry Status: Acute Assessment and Plan: patient does not have a documented history of CKD, however review of labs suggest GFR baseline to be around 45-50. * creatinine increased to 2.1 this admission with GFR 30 * suspect this is secondary to IV diuresis which has been discontinued * Renal function returned to baseline * Bumex and spironolactone held initially but has not been resumed * Renal function has returned to baselinee * monitor kidney function closely (4) Abnormal EKG: Code(s): R94.31 - Abnormal electrocardiogram [ECG] [EKG] Status: Acute Assessment and Plan: EKG demonstrated atrial fibrillation with aberrant conduction * echocardiogram unremarkable * serial troponins negative * patient was monitored on telemetry for 24 hours with no significant dysrhythmias. Telemetry discontinued on 07/23 (5) Atrial fibrillation: Qualifiers: Atrial fibrillation type: unspecified Qualified Code(s): I48.91 - Unspecified atrial fibrillation Code(s): I48.91 - Unspecified atrial fibrillation Status: Chronic Assessment and Plan: as above, telemetry and EKG demonstrated patient to be in atrial fibrillation with rate controlled * continue home Eliquis (6) VALENTINA (obstructive sleep apnea): Code(s): G47.33 - Obstructive sleep apnea (adult) (pediatric) Status: Acute Assessment and Plan: continue home CPAP with 1-2 L bleed in at night (7) Unspecified es
--- NOTE | 2022-07-26 11:51 | PM.IMPN ---
Progress Note: A&P Assessment and Plan (1) COPD (chronic obstructive pulmonary disease): Qualifiers: COPD type: unspecified COPD Qualified Code(s): J44.9 - Chronic obstructive pulmonary disease, unspecified Code(s): J44.9 - Chronic obstructive pulmonary disease, unspecified Status: Chronic Assessment and Plan: Acute COPD exacerbation improved with IV Solu-Medrol weaned to p.o. prednisone 40 mg daily which will be continued for 5 days continue bronchodilators. Albuterol and ipratropium nebs q.6 hours as needed given increased sputum production, continue with doxycycline 100 mg b.i.d. Patient is chronically on doxycycline suppressive therapy 100 mg daily due to history of MRSA bacteremia. sputum culture is negative supportive care provided has been weaned to room air and is maintaining adequate O2 sats. Reportedly having desaturation with activity. continue to monitor O2 sats and provide supplemental O2 as needed to maintain sats 90% or above patient will need home O2 eval prior to discharge. Patient already has home oxygen which he uses at night. He may require supplemental O2 with activity (2) CHF (congestive heart failure): Qualifiers: Heart failure chronicity: chronic Heart failure type: unspecified Qualified Code(s): I50.9 - Heart failure, unspecified Code(s): I50.9 - Heart failure, unspecified Status: Chronic Assessment and Plan: patient with history of diastolic CHF. Patient is euvolemic on exam. CXR with no evidence of pulmonary edema or other acute cardiopulmonary findings BNP only mildly elevated at 1200 Received Lasix 40 mg IV bid on admission which has been discontinued as pt is euvolemic continue home Bumex 0.5 mg BID continue spironolactone echocardiogram completed with normal EF and indeterminate diastolic function monitor volume status closely with I&Os and daily weights (3) Elevated serum creatinine: Code(s): R79.89 - Other specified abnormal findings of blood chemistry Status: Acute Assessment and Plan: patient does not have a documented history of CKD, however review of labs suggest GFR baseline to be around 45-50. creatinine increased to 2.1 this admission with GFR 30 suspect this is secondary to IV diuresis which has been discontinued Renal function returned to baseline Bumex and spironolactone held initially but has not been resumed Renal function has returned to baselinee monitor kidney function closely (4) Abnormal EKG: Code(s): R94.31 - Abnormal electrocardiogram [ECG] [EKG] Status: Acute Assessment and Plan: EKG demonstrated atrial fibrillation with aberrant conduction echocardiogram unremarkable serial troponins negative patient was monitored on telemetry for 24 hours with no significant dysrhythmias. Telemetry discontinued on 07/23 (5) Atrial fibrillation: Qualifiers: Atrial fibrillation type: unspecified Qualified Code(s): I48.91 - Unspecified atrial fibrillation Code(s): I48.91 - Unspecified atrial fibrillation Status: Chronic Assessment and Plan: as above, telemetry and EKG demonstrated patient to be in atrial fibrillation with rate controlled continue home Eliquis (6) VALENTINA (obstructive sleep apnea): Code(s): G47.33 - Obstructive sleep apnea (adult) (pediatric) Status: Acute Assessment and Plan: continue home CPAP with 1-2 L bleed in at night (7) Unspecified essential hypertension: Code(s): I10 - Essential (primary) hypertension Status: Acute Assessment and Plan: blood pressures are stable. Last BP 140/75 continue metoprolol succinate, spironolactone, and Bumex monitor BP trends Subjective Date/time seen: 07/26/22 11:51 Interval history: Date of service: 07/26/2022 Mason Kramer Keys is a 71-year-old male with a history of atri
[2022-07-26] MEDS: SPIRONOLACTONE 12.5 MG TABLET PO (17:41)
[2022-07-26] MEDS: FLUTICASONE/UMECLIDIN/VILANTER 100-62.5-25 MCG ELLIPTA 1 PUFF INHALATION (19:14)
[2022-07-26] MEDS: TAMSULOSIN HCL 0.4 MG CAPSULE PO (20:02)
[2022-07-26] MEDS: BACLOFEN 10 MG TABLET PO (20:02)
[2022-07-26] MEDS: GABAPENTIN 100 MG CAPSULE 200 MG PO (20:02)
[2022-07-27] VITALS (9 sets, daily range): BP systolic 122–124; BP diastolic 62–77; PULSE 62–92; RESP 18–20; TEMP 36.5–36.7; O2SAT 93–99
[2022-07-27 05:42] LABS: Hematocrit 42.3 % (42.0-52.0); Hemoglobin 13.6 g/dL (14.0-18.0); Immature Platelet Fraction Pct 18.5 % (0.9-11.2); Mean Corpuscular HGB Conc 32.2 g/dl (32-36); Mean Corpuscular Hemoglobin 31.3 pg (26-34); Mean Corpuscular Volume 97.2 fl (80-100); Mean Platelet Volume 13.3 fl (7.4-10.4); Platelet Count Result 149 k/mm3 (150-375); Red Blood Count 4.35 M/mm3 (4.6-6.20); Red Cell Distribution Width 14.1 % (11.5-14.5); White Blood Count 15.5 K/mm3 (4.5-10.0)
[2022-07-27 05:52] LABS: Anion Gap 4 mmol/L (8-16); Blood Urea Nitrogen 40 mg/dL (9-20); Calcium 8.6 mg/dL (8.4-10.2); Carbon Dioxide 31 mmol/L (22-30); Chloride 102 mmol/L (98-107); Estimated CRCL calculation 60 ml/min; Estimated Glomerular Filt Rate 54; Glucose 130 mg/dL (65-110); Potassium 4.3 mmol/L (3.4-5.0); Sodium 137 mmol/L (137-145)
[2022-07-27] MEDS: WATER FOR IRRIGATION, STERILE 1,000 ML BOTTLE 1000 ML (05:53)
[2022-07-27] MEDS: IPRATROPIUM BR 0.02% INH SOLN 0.5 MG/2.5 ML VIAL INHALATION (08:28)
[2022-07-27] MEDS: ALBUTEROL SULFATE NEB 2.5 MG/3 ML INH INHALATION (08:28)
[2022-07-27] MEDS: FLUTICASONE/UMECLIDIN/VILANTER 100-62.5-25 MCG ELLIPTA 1 PUFF INHALATION (08:28)
[2022-07-27] MEDS: APIXABAN 5 MG TABLET PO (08:53)
[2022-07-27] MEDS: PYRIDOXINE HCL 50 MG TABLET 100 MG PO (08:54)
[2022-07-27] MEDS: FAMOTIDINE 20 MG TABLET PO (08:54)
[2022-07-27] MEDS: POTASSIUM CHLORIDE 20 MEQ TABLET.ER PO (08:54)
[2022-07-27] MEDS: MAGNESIUM OXIDE 400 MG TABLET PO (08:54)
[2022-07-27] MEDS: ROFLUMILAST 500 MCG TABLET PO (08:55)
[2022-07-27] MEDS: ASPIRIN 81 MG ENTERIC TABLET PO (08:55)
[2022-07-27] MEDS: FERROUS SULFATE 324 MG TABLET PO (08:55)
[2022-07-27] MEDS: METOPROLOL SUCCINATE EXT REL 100 MG TABCR PO (08:55)
[2022-07-27] MEDS: DOXYCYCLINE HYCLATE 100 MG TABLET PO (08:55)
[2022-07-27] MEDS: BUMETANIDE 0.5 MG TABLET PO (08:55)
[2022-07-27] MEDS: predniSONE 20 MG TABLET 40 MG PO (08:55)
[2022-07-27] MEDS: guaiFENesin 12 HR 600 MG TABCR PO (08:56)
[2022-07-27] MEDS: FOLIC ACID 1 MG TABLET PO (08:56)
[2022-07-27] MEDS: SPIRONOLACTONE 12.5 MG TABLET PO (09:22)
--- NOTE | 2022-07-27 12:16 | HOMEO2EVAL ---
Evaluation was performed at [facility] Home Oxygen Evaluation RC: Home Oxygen (O2) Evaluation Start: 07/27/22 08:11 Freq: ONCE Status: Active Protocol: RPE Activity Type Activity Date Activity User E-sign Co-sign Detail Recorded Client Recorded Date Recorded By Document 07/27/22 11:50 LESLY [email or web address] 07/27/22 12:15 LESLY Document 07/27/22 11:55 LESLY [email or web address] 07/27/22 12:15 LESLY Document 07/27/22 12:05 LESLY [email or web address] 07/27/22 12:15 LESLY 07/27/22 07/27/22 07/27/22 11:50 11:55 12:05 Home O2 Evaluation [Oxygen] -Test Phase Resting Exercise Resting -Oxygen Delivery Room Air Room Air Room Air [Pulse Oximetry] -Pulse Oximetry (90-100 %) 97 93 98 [Pulse Rate] -Pulse Rate (60-100 beats/min) 62 92 76 [Comments] -Home Oxygen Evaluation Comments No home o2 needed at this time, pt does have home o2 for nocturnal use with bipap unit. [Charges] -Treatment Charges O2 Evaluation - Inpatient
--- NOTE | 2022-07-27 12:16 | PCRCNOTE ---
Home O2 eval completed, no home O2 need at this time. He has O2 for nocturnal use with home bipap unit. No addtl needs. RN notified
--- NOTE | 2022-07-27 13:34 | P.DS_ITS ---
DS: Admitting Diagnosis Discharge Date 07/27/2022 Admitting Diagnosis COPD exacerbation DS: Discharge Diagnosis Discharge Diagnosis (1) COPD (chronic obstructive pulmonary disease): Qualifiers: COPD type: unspecified COPD Qualified Code(s): J44.9 - Chronic obstructive pulmonary disease, unspecified Code(s): J44.9 - Chronic obstructive pulmonary disease, unspecified Status: Chronic Assessment and Plan: Acute COPD exacerbation * improved with IV Solu-Medrol And bronchodilators * weaned to p.o. prednisone 40 mg daily which will be continued for 5 days * given increased sputum production patient was treated with antibiotic therapy. His home doxycycline 100 mg daily was increased to 100 mg b.i.d. for therapeutic affect.Patient is chronically on doxycycline suppressive therapy 100 mg daily due to history of MRSA bacteremia. * sputum culture negative * supportive care provided * he was able to be weaned to room air and maintain adequate O2 sats * home O2 eval completed and patient has no ongoing oxygen requirements. He does have nocturnal home oxygen which he will continue with CPAP (2) CHF (congestive heart failure): Qualifiers: Heart failure type: unspecified Heart failure chronicity: chronic Qualified Code(s): I50.9 - Heart failure, unspecified Code(s): I50.9 - Heart failure, unspecified Status: Chronic Assessment and Plan: patient with history of diastolic CHF. * CXR with no evidence of pulmonary edema or other acute cardiopulmonary findings * BNP only mildly elevated at 1200 * Received Lasix 40 mg IV bid on admission which was discontinued as pt is euvolemic * continue home Bumex 0.5 mg BID and spironolactone * echocardiogram completed with normal EF and indeterminate diastolic function * CHF Education provided (3) Elevated serum creatinine: Code(s): R79.89 - Other specified abnormal findings of blood chemistry Status: Acute Assessment and Plan: patient does not have a documented history of CKD, however review of labs suggest GFR baseline to be around 45-50. * creatinine increased to 2.1 this admission with GFR 30 * suspect this is secondary to IV diuresis which was discontinued * Renal function returned to baseline * Bumex and spironolactone held initially but resumed following improvement in renal function (4) Abnormal EKG: Code(s): R94.31 - Abnormal electrocardiogram [ECG] [EKG] Status: Acute Assessment and Plan: EKG demonstrated atrial fibrillation with aberrant conduction * echocardiogram unremarkable * serial troponins negative * patient was monitored on telemetry for 24 hours with no significant dysrhythmias. Telemetry discontinued on 07/23 (5) Atrial fibrillation: Qualifiers: Atrial fibrillation type: unspecified Qualified Code(s): I48.91 - Unspecified atrial fibrillation Code(s): I48.91 - Unspecified atrial fibrillation Status: Chronic Assessment and Plan: as above, telemetry and EKG demonstrated patient to be in atrial fibrillation with rate controlled * continue home Eliquis (6) VALENTINA (obstructive sleep apnea): Code(s): G47.33 - Obstructive sleep apnea (adult) (pediatric) Status: Acute Assessment and Plan: continue home CPAP with 1-2 L bleed in at night (7) Unspecified essential hypertension: Code(s): I10 - Essential (primary) hypertension Status: Acute Assessment and Plan: blood pressures
--- NOTE | 2022-07-27 13:34 | PM.DS ---
DS: Admitting Diagnosis Discharge Date 07/27/2022 Admitting Diagnosis COPD exacerbation DS: Discharge Diagnosis Discharge Diagnosis (1) COPD (chronic obstructive pulmonary disease): Qualifiers: COPD type: unspecified COPD Qualified Code(s): J44.9 - Chronic obstructive pulmonary disease, unspecified Code(s): J44.9 - Chronic obstructive pulmonary disease, unspecified Status: Chronic Assessment and Plan: Acute COPD exacerbation improved with IV Solu-Medrol And bronchodilators weaned to p.o. prednisone 40 mg daily which will be continued for 5 days given increased sputum production patient was treated with antibiotic therapy. His home doxycycline 100 mg daily was increased to 100 mg b.i.d. for therapeutic affect.Patient is chronically on doxycycline suppressive therapy 100 mg daily due to history of MRSA bacteremia. sputum culture negative supportive care provided he was able to be weaned to room air and maintain adequate O2 sats home O2 eval completed and patient has no ongoing oxygen requirements. He does have nocturnal home oxygen which he will continue with CPAP (2) CHF (congestive heart failure): Qualifiers: Heart failure type: unspecified Heart failure chronicity: chronic Qualified Code(s): I50.9 - Heart failure, unspecified Code(s): I50.9 - Heart failure, unspecified Status: Chronic Assessment and Plan: patient with history of diastolic CHF. CXR with no evidence of pulmonary edema or other acute cardiopulmonary findings BNP only mildly elevated at 1200 Received Lasix 40 mg IV bid on admission which was discontinued as pt is euvolemic continue home Bumex 0.5 mg BID and spironolactone echocardiogram completed with normal EF and indeterminate diastolic function CHF Education provided (3) Elevated serum creatinine: Code(s): R79.89 - Other specified abnormal findings of blood chemistry Status: Acute Assessment and Plan: patient does not have a documented history of CKD, however review of labs suggest GFR baseline to be around 45-50. creatinine increased to 2.1 this admission with GFR 30 suspect this is secondary to IV diuresis which was discontinued Renal function returned to baseline Bumex and spironolactone held initially but resumed following improvement in renal function (4) Abnormal EKG: Code(s): R94.31 - Abnormal electrocardiogram [ECG] [EKG] Status: Acute Assessment and Plan: EKG demonstrated atrial fibrillation with aberrant conduction echocardiogram unremarkable serial troponins negative patient was monitored on telemetry for 24 hours with no significant dysrhythmias. Telemetry discontinued on 07/23 (5) Atrial fibrillation: Qualifiers: Atrial fibrillation type: unspecified Qualified Code(s): I48.91 - Unspecified atrial fibrillation Code(s): I48.91 - Unspecified atrial fibrillation Status: Chronic Assessment and Plan: as above, telemetry and EKG demonstrated patient to be in atrial fibrillation with rate controlled continue home Eliquis (6) VALENTINA (obstructive sleep apnea): Code(s): G47.33 - Obstructive sleep apnea (adult) (pediatric) Status: Acute Assessment and Plan: continue home CPAP with 1-2 L bleed in at night (7) Unspecified essential hypertension: Code(s): I10 - Essential (primary) hypertension Status: Acute Assessment and Plan: blood pressures remained stable. continue metoprolol succinate, spironolactone, and Bumex monitor BP trends DS: Summary Hospital Course Hospital Course: date of admission 07/21/2022 date of discharge: 07/27/2022 Mason Nia Davalosks is a 71-year-old male with a history of atrial fibrillation on chronic anticoagulation, COPD, VALENTINA on BiPAP, CHF, BPH, cirrhosis, and several other comorbidities who presented to the emergency department
== END 2022-07-27 14:53 | disposition home or self-care (01) | DRG 191 ==
LOC: ANHED 07-22 01:58 → ANH2MED 07-22 02:41
PROVIDERS: Emergency Medicine; Admitting Provider Internal Medicine; Emergency Provider Emergency Medicine; PCP Emergency Medicine; Visit Provider Physician Assistant
DX: J44.1 Chronic obstructive pulmonary disease with (acute) exacerbation (principal); I48.20 Chronic atrial fibrillation, unspecified; I50.32 Chronic diastolic (congestive) heart failure; J96.11 Chronic respiratory failure with hypoxia; I11.0 Hypertensive heart disease with heart failure; R79.89 Other specified abnormal findings of blood chemistry; R94.31 Abnormal electrocardiogram [ECG] [EKG]; Z79.01 Long term (current) use of anticoagulants; G47.33 Obstructive sleep apnea (adult) (pediatric); K74.60 Unspecified cirrhosis of liver; N40.0 Benign prostatic hyperplasia without lower urinary tract symptoms; E66.9 Obesity, unspecified; Z68.37 Body mass index [BMI] 37.0-37.9, adult; Z20.822 Contact with and (suspected) exposure to COVID-19; Z88.0 Allergy status to penicillin; Z88.1 Allergy status to other antibiotic agents; Z86.73 Personal history of transient ischemic attack (TIA), and cerebral infarction without residual deficits; Z86.718 Personal history of other venous thrombosis and embolism; Z96.649 Presence of unspecified artificial hip joint; Z82.49 Family history of ischemic heart disease and other diseases of the circulatory system; Z82.3 Family history of stroke; Z87.891 Personal history of nicotine dependence; Z79.899 Other long term (current) drug therapy
CPT/HCPCS: 36415; 71046; 80048; 80053; 82550; 83880; 84484; 85025; 85027; 85055; 87070; 87205; 87637; 93005; 93306; 94618; 94640; 94660; 94667; 94668; 96365; 96375; 96376; 97110; 97161; 97530; 99285; A9270; G0378; J1940; J2405; J2920; J2930; J3475; J7512

== ENCOUNTER 2022-08-12 12:14 | Inpatient (IN) | payer MEDICARE, SELFPAY ==
[2022-08-12] VITALS (8 sets, daily range): BP systolic 109–166; BP diastolic 65–95; PULSE 73–85; RESP 16–24; TEMP 35.9–36.8; O2SAT 96–99; BMI 36.8
--- NOTE | ~2022-08-12 | US_ITS ---
EXAMINATION: US venous doppler [facility] DATE: 08/12/2022 17:16 INDICATION: Lower limb pain, swelling and erythema TECHNIQUE: Grayscale ultrasound images without and with compression and Doppler ultrasound images of the bilateral lower extremity veins were obtained. COMPARISON: None. FINDINGS: The visualized portions of right common femoral vein, profunda (deep) femoral vein, femoral vein, pop liteal vein, posterior tibial veins, peroneal veins, gastrocnemius vein and greater saphenous vein ou tflow are patent. The visualized portions of left common femoral vein, profunda femoral vein, femoral vein, popliteal v ein, posterior tibial veins, peroneal veins, gastrocnemius vein and greater saphenous vein outflow ar e patent. IMPRESSION: 1. No deep venous thrombosis in either lower limb. Reviewed, dictated and finalized at location A. 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
--- NOTE | 2022-08-12 13:42 | ED.EXTPRO ---
HPI - Extremity Problem General Chief complaint: Extremity Problem,Nontraumatic Stated complaint: left leg cellulitis - sent by PCP for eval Time Seen by Provider: 08/12/22 12:53 History of Present Illness HPI Narrative: Patient is a 71-year-old male with a history of COPD, CAD, hypertension, hyperlipidemia, A-fib on Eliquis, MRSA infections presenting with cellulitis. Patient states that for the last couple of days he has had progressive redness of his lower extremities. States it started on the left leg and has progressed up to his knee. States that his right leg started to become red yesterday. He saw his PCP today who recommended he come in for IV antibiotics and further evaluation. Patient does have a history of multiple episodes of MRSA bacteremia. He is maintained on doxycycline. Due to his risk factors and history of MRSA, his PCP did not feel comfortable with p.o. antibiotics. Patient states he took some Tylenol earlier today which helped bring his pain down to a 9 out of 10. He denies fevers or chills, headache, chest pain, shortness of breath, cough, abdominal pain, nausea or vomiting, diarrhea, dysuria. Related Data Home Medications Medication Instructions Recorded Confirmed ferrous sulfate 324 mg (65 mg 324 mg PO DAILY 04/05/19 08/12/22 iron) tablet,delayed release omeprazole 40 mg capsule,delayed 40 mg PO DAILY 04/05/19 08/12/22 release tamsulosin 0.4 mg capsule (Flomax) 0.4 mg PO HS 04/05/19 08/12/22 aspirin 81 mg tablet,delayed 81 mg PO DAILY 05/21/19 08/12/22 release cetirizine 10 mg tablet 10 mg PO DAILY 08/04/19 08/12/22 acetaminophen 325 mg capsule 325 mg PO Q6H PRN Pain 03/17/20 08/12/22 diphenhydramine HCl 25 mg capsule 25 mg PO HS PRN Allergy Symptoms 09/12/20 08/12/22 (Benadryl) bumetanide 0.5 mg tablet 0.5 mg PO BID 11/17/20 08/12/22 magnesium oxide 400 mg PO BID 03/04/21 08/12/22 pyridoxine (vitamin B6) 100 mg 100 mg PO DAILY 03/04/21 08/12/22 tablet gabapentin 100 mg capsule 200 mg PO QHS 12/17/21 08/12/22 apixaban 5 mg tablet (Eliquis) 5 mg PO BID 05/26/22 08/12/22 potassium chloride 20 mEq 20 meq PO DAILY 05/26/22 08/12/22 tablet,extended release roflumilast 500 mcg tablet 500 mcg PO DAILY 05/26/22 08/12/22 (Daliresp) albuterol sulfate 2.5 mg/3 mL 2.5 mg continuous nebulization Q6H 07/22/22 08/12/22 (0.083 %) solution for nebulization baclofen 10 mg tablet 10 mg PO HS 07/22/22 08/12/22 metoprolol succinate 50 mg 50 mg PO DAILY 08/06/22 08/12/22 tablet,extended release 24 hr nystatin 100,000 unit/gram topical 1 applic topical BID PRN Rash 08/12/22 08/12/22 cream Allergies Allergy/AdvReac Type Severity Reaction Status Date / Time levofloxacin Allergy Intermediate Swelling Verified 08/12/22 12:15 of the Eye Penicillins Allergy Intermediate Hives Verified 08/12/22 12:15 scopolamine Allergy Mild Confusion Verified 08/12/22 12:15 tobramycin Allergy Mild Hallucinati Verified 08/12/22 12:15 ng pepper (genus Capsicum) AdvReac Intermediate Nausea and Verified 08/12/22 12:15 Vomiting Review of Systems Review of Systems: All systems reviewed & are unremarkable except as noted in HPI and below PMFSH Past Medical History Medical History (Updated 08/16/22 @ 13:21 by Katiana Benites MD) Benign prostatic hyperplasia Cerebrovascular accident Chronic anticoagulation Chronic diastolic heart failure Chronic kidney disease Chronic obstructive pulmonary disease Cirrhosis Deep venous thrombosis Gastroesophageal reflux disease MRSA (methicillin resistant Staphylococcus aureus) infection The patient had a spinal abscess L1-L2 complicated was septicemia and then had 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 On long-term doxycycline. Obstructive sleep apnea treated with BiPAP Paroxysmal atrial fibrillation Pneumothorax on left Surgical History Surgical History (Updated 08/12/22 @ 21:27 by Jannet Myels PA-C) History of back surgery History of bilateral cataract extraction
[2022-08-12] MEDS: fentaNYL CITRATE INJ (*CRX) 100 MCG/2 ML VIAL 50 MCG IV PUSH (14:34)
[2022-08-12] MEDS: SODIUM CHLORIDE 0.9% IV 1,000 ML 999 ML IV CONT (14:34)
[2022-08-12 15:08] LABS: Basophils Absolute Auto 0.1 K/mm3 (0.0-0.1); Basophils Percent Auto 0.7 % (0.2-1.2); Eosinophils Absolute Auto 0.5 K/mm3 (0-0.3); Eosinophils Percent Auto 5.6 % (0-4.4); Hematocrit 42.5 % (42.0-52.0); Hemoglobin 13.3 g/dL (14.0-18.0); Immature Granulocyte Absolute 0.05 K/mm3 (0.00-0.031); Immature Granulocyte Percent A 0.5 % (0-0.5); Lymphocytes Absolute Auto 0.67 K/mm3 (0.9-3.2); Lymphocytes Percent Auto 6.9 % (18.3-44.2); Mean Corpuscular HGB Conc 31.3 g/dl (32-36); Mean Corpuscular Hemoglobin 30.9 pg (26-34); Mean Corpuscular Volume 98.6 fl (80-100); Monocytes Absolute Auto 0.8 K/mm3 (0.1-0.6); Monocytes Percent Auto 8.7 % (2.6-8.5); Neutrophils Absolute Auto 7.5 K/mm3 (1.3-6.7); Neutrophils Percent Auto 77.6 % (45.5-73.1); Platelet Count Result 131 k/mm3 (150-375); Red Blood Count 4.31 M/mm3 (4.6-6.20); Red Cell Distribution Width 14.6 % (11.5-14.5); White Blood Count 9.7 K/mm3 (4.5-10.0)
[2022-08-12 15:21] LABS: Alanine Aminotransferase 30 U/L (6-50); Alkaline Phosphatase 105 U/L (38-126); Anion Gap 6 mmol/L (8-16); Aspartate Amino Transferase 34 U/L (17-59); Bilirubin,Total 1.1 mg/dL (0.2-1.3); Blood Urea Nitrogen 32 mg/dL (9-20); Calcium 9.4 mg/dL (8.4-10.2); Carbon Dioxide 31 mmol/L (22-30); Chloride 102 mmol/L (98-107); Estimated CRCL calculation 49 ml/min; Estimated Glomerular Filt Rate 43; Glucose 120 mg/dL (65-110); Potassium 4.8 mmol/L (3.4-5.0); Sodium 139 mmol/L (137-145)
--- NOTE | 2022-08-12 16:00 | PM.IMHP ---
H&P: HPI History of Present Illness Date/Time: 08/12/22 16:00 Chief Complaint: Left leg redness, pain, swelling. Narrative: This is a 71-year-old male with multiple medical problems including COPD, congestive heart failure, sleep apnea, coronary artery disease, hypertension, cirrhosis, MRSA bacteremia on long-term prophylaxis, and several other comorbidities who presented to the emergency department the direction of his doctor for evaluation of left leg redness, pain, and swelling. Patient provides the following history. He is known to the hospitalist service with a recent admission for COPD and CHF in which he was discharged on 07/27/22. He seems to be doing better in that regard. On Tuesday he developed redness on the left seu which has gotten progressively worse and painful. He describes a burning and occasional stabbing pain in that leg, much worse with touch. He has not injured the leg and has not noticed any wounds or drainage. He denies fever, chills, sweats, nausea, and vomiting. After discussing this with his doctor, he was referred him to the ER for IV antibiotics given his history of MRSA. Review of Systems Review of Systems: Labs, imaging, EKG, and all reports were personally reviewed. [facility] Past Medical History Medical History (Updated 08/12/22 @ 21:30 by Jannet Myles PA-C) Benign prostatic hyperplasia Cerebrovascular accident Chronic anticoagulation Chronic diastolic heart failure Chronic kidney disease Chronic obstructive pulmonary disease Cirrhosis Deep venous thrombosis Gastroesophageal reflux disease MRSA (methicillin resistant Staphylococcus aureus) infection The patient had a spinal abscess L1-L2 complicated was septicemia and then had 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 On long-term doxycycline. Obstructive sleep apnea treated with BiPAP Paroxysmal atrial fibrillation Pneumothorax on left Surgical History Surgical History (Updated 08/12/22 @ 21:27 by Jannet Myles PA-C) History of back surgery History of bilateral cataract extraction History of bilateral hip replacements History of colonoscopy with polypectomy History of revision of total replacement of hip joint History of tracheostomy Status post excision of lipoma Neck. Family History Family History Mother Family history of cardiovascular disease Family history of coronary artery disease Father Family history of liver disease Sibling Hypertension Cerebrovascular accident Chronic obstructive pulmonary disease Social History Social History (Updated 08/12/22 @ 21:28 by Jannet Myles PA-C) Social History: Surrogate medical decision maker: Trinity Keys, spouse. Code status: Full code. Smoking packs per day: 1 Smoking cigarettes per day: 20.0 Years smoked: 7 Smoking pack-years: 7.00 Smoking status: Former smoker Tobacco type: cigarettes Smokeless tobacco user: chewing tobacco Smoking end date: 06/06/81 Alcohol intake: never Substance use: never Substance use type: does not use Lack of Transportation: No Lack of Food: Never True Current Housing: I Have Housing Concerned About Future Housing: No Difficulty Paying Gas/Electric Bills: No Difficulty Paying for Meds: No Currently Unemployed: No Education: Associate Degree Difficulty w/ Childcare or Family Care: No Additional living arrangements comments: Lives with spouse in [place]. Additional occupation/education comments: Retired [employer]. [place] [employer] . Spiritual care concerns: No Agree to blood products: Yes Meds Home Medications and Allergies Home Medications Medication Instructions Recorded Confirmed Type ferrous sulfate 324 mg (65 mg 324 mg PO DAILY 04/05/19 08/12/22 History iron) tablet,delayed release omeprazole 40 mg capsule,delayed 40 mg PO DAILY 04/05/19 08/12/22 History release tamsulosin 0.4 mg capsule (Floma
--- NOTE | 2022-08-12 18:15 | ADMGEN ---
This patient, Mason Keys, was admitted to [facility] Surg Room 313-01 at 1735. Patient/family oriented to hospital policies and general routines including ID bracelet, bed and alarms, visiting hours, pain management, procedures, bathroom and other care routines, personal items, smoking policy, room service/diet, and visiting hours. Information on how to activate the Rapid Response Team has been discussed. Patient/Family are encouraged to report perceived risks to care and to ask questions if they do not understand what they are told or what they should do.
[2022-08-12] MEDS: ALBUTEROL SULFATE NEB 2.5 MG/3 ML INH INHALATION (18:36)
[2022-08-12] MEDS: IPRATROPIUM BR 0.02% INH SOLN 0.5 MG/2.5 ML VIAL INHALATION (18:36)
[2022-08-12 21:21] LABS: Glucose Point of Care 127 mg/dl (65-105)
[2022-08-12] MEDS: TAMSULOSIN HCL 0.4 MG CAPSULE PO (22:33)
[2022-08-12] MEDS: BACLOFEN 10 MG TABLET PO (22:33)
[2022-08-12] MEDS: MAGNESIUM OXIDE 400 MG TABLET PO (22:33)
[2022-08-12] MEDS: BUMETANIDE 0.5 MG TABLET PO (22:33)
[2022-08-12] MEDS: APIXABAN 5 MG TABLET PO (22:33)
[2022-08-12] MEDS: GABAPENTIN 100 MG CAPSULE 200 MG PO (22:33)
[2022-08-12] MEDS: metroNIDAZOLE 500 MG/ISO 100ML 500 MG/100 ML BAG 100 MG IVPB (22:35)
[2022-08-13] VITALS (14 sets, daily range): BP systolic 125–137; BP diastolic 51–76; PULSE 75–86; RESP 18–22; TEMP 36.2–36.5; O2SAT 95–100
[2022-08-13] MEDS: ALBUTEROL SULFATE NEB 2.5 MG/3 ML INH INHALATION ×5 (03:00→23:51)
[2022-08-13] MEDS: metroNIDAZOLE 500 MG/ISO 100ML 500 MG/100 ML BAG 100 MG IVPB ×3 (05:55→21:53)
[2022-08-13 07:13] LABS: Hematocrit 39.9 % (42.0-52.0); Hemoglobin 12.6 g/dL (14.0-18.0); Mean Corpuscular HGB Conc 31.6 g/dl (32-36); Mean Corpuscular Hemoglobin 30.2 pg (26-34); Mean Corpuscular Volume 95.7 fl (80-100); Mean Platelet Volume 12.5 fl (7.4-10.4); Platelet Count Result 115 k/mm3 (150-375); Red Blood Count 4.17 M/mm3 (4.6-6.20); Red Cell Distribution Width 14.6 % (11.5-14.5); White Blood Count 8.5 K/mm3 (4.5-10.0)
[2022-08-13 07:14] LABS: Anion Gap 3 mmol/L (8-16); Blood Urea Nitrogen 27 mg/dL (9-20); Calcium 8.8 mg/dL (8.4-10.2); Carbon Dioxide 29 mmol/L (22-30); Chloride 102 mmol/L (98-107); Estimated CRCL calculation 52 ml/min; Estimated Glomerular Filt Rate 46; Glucose 113 mg/dL (65-110); Magnesium 1.9 mg/dL (1.6-2.3); Potassium 4.1 mmol/L (3.4-5.0); Sodium 134 mmol/L (137-145)
[2022-08-13 07:44] LABS: Glucose Point of Care 113 mg/dl (65-105)
--- NOTE | 2022-08-13 08:05 | PM.IMPN ---
Progress Note: A&P Assessment and Plan (1) Left leg cellulitis: Code(s): L03.116 - Cellulitis of left lower limb Status: Acute Assessment and Plan: He presented to the emergency department the direction of his doctor for evaluation of left leg redness, pain, and swelling. On Tuesday he developed redness on the left sue which has gotten progressively worse and painful with burning and occasional stabbing pain in that leg, much worse with touch. Started on empiric broad spectrum antibiotics- vancomycin, cefepime and flagyl. Appears to be improving. Deescalate antibiotics pending further improvement and negative blood cultures. No purulent drainage. Elevate BLE to control edema. (2) History of MRSA infection: Code(s): Z86.14 - Personal history of Methicillin resistant Staphylococcus aureus infection Status: Chronic Assessment and Plan: Cellulitis nonpurulent. Currently on Vancomycin and takes chronic doxycycline. He denies prior decolonization. Start bactroban nasal ointment. (3) Chronic kidney disease: Code(s): N18.9 - Chronic kidney disease, unspecified Status: Chronic Assessment and Plan: BUN 32, creatinine 1.6, GFR 43; baseline creatinine 1.3. Stable, does not appear overtly hypovolemic or hypervolemic. Continue home diuretics and monitor renal function on antibiotic therapy. (4) Chronic anticoagulation: Code(s): Z79.01 - USP (current) use of anticoagulants Status: Chronic Assessment and Plan: Continue Eliquis for paroxysmal afib (5) Chronic diastolic heart failure: Code(s): I50.32 - Chronic diastolic (congestive) heart failure Status: Chronic Assessment and Plan: Not in acute exacerbation. Continue home therapy. (6) Obstructive sleep apnea treated with BiPAP: Code(s): G47.33 - Obstructive sleep apnea (adult) (pediatric) Status: Chronic Assessment and Plan: Continue noctural bipap while inpatient. (7) Paroxysmal atrial fibrillation: Code(s): I48.0 - Paroxysmal atrial fibrillation Status: Chronic Assessment and Plan: Chronic, stable. Continue metoprolol and Eliquis at home doses. (8) Chronic obstructive pulmonary disease: Code(s): J44.9 - Chronic obstructive pulmonary disease, unspecified Status: Chronic Assessment and Plan: Chronic, no wheezing on exam to suggest acute exacerbation. Trelegy inhaler and Q6 albuterol nebs which is his home therapy. Plan CODE STATUS: FULL CODE Disposition: from home. Time Spent With Patient Time: 40 minutes time spent with patient assessment, patient education, consultation with cardiology on imaging, review of labs, vitals and nursing documentation. Subjective Date/time seen: 08/13/22 08:05 Interval history: He reports his left leg is less red today. His swelling is somewhat improved as well. He denies fever, chills, rigors, or acute injury to his leg. He has been taking his doxycycline as scheduled. No purulent discharge noted. Review of Systems Review of Systems: All systems reviewed & are unremarkable except as noted in HPI and below Exam Narrative: General: Chronically ill-appearing sitting up in the chair in no distress. BMI: 36.9. HEENT: PERRL. Sclera anicteric. Oral mucosa moist. Neck: Unremarkable. Respiratory: Respirations are nonlabored and he is speaking in full sentences. Occasional dry cough. Lung sounds are diminished bilateral lower lobes. Cardiovascular: Regular rate and rhythm with S1-S2. Soft murmur at the upper sternal border. Gastrointestinal: Abdomen is soft, obese, nontender, and nondistended with positive bowel sounds. Skin: Warm and dry. Chronic hyperpigmentation of the lower legs bilaterally. Left lower leg is red, mildly warm, and mildly tender to palpation. The erythema is nearly circumferential around the calf. There is shallow fissuring just anterior to
[2022-08-13] MEDS: FLUTICASONE/UMECLIDIN/VILANTER 100-62.5-25 MCG ELLIPTA 1 PUFF INHALATION (09:08)
[2022-08-13] MEDS: PANTOPRAZOLE 40 MG TABLET PO (09:37)
[2022-08-13] MEDS: MAGNESIUM OXIDE 400 MG TABLET PO ×2 (09:37→17:50)
[2022-08-13] MEDS: FERROUS SULFATE 324 MG TABLET PO (09:37)
[2022-08-13] MEDS: METOPROLOL SUCCINATE EXT REL 50 MG TABCR PO (09:37)
[2022-08-13] MEDS: PYRIDOXINE HCL 50 MG TABLET 100 MG PO (09:37)
[2022-08-13] MEDS: ASPIRIN 81 MG ENTERIC TABLET PO (09:37)
[2022-08-13] MEDS: ROFLUMILAST 500 MCG TABLET PO (09:37)
[2022-08-13] MEDS: POTASSIUM CHLORIDE 20 MEQ TABLET.ER PO (09:37)
[2022-08-13] MEDS: APIXABAN 5 MG TABLET PO ×2 (09:37→17:49)
[2022-08-13] MEDS: SPIRONOLACTONE 12.5 MG TABLET PO (09:37)
[2022-08-13] MEDS: LORATADINE 10 MG TABLET PO (09:37)
[2022-08-13] MEDS: BUMETANIDE 0.5 MG TABLET PO ×2 (09:38→17:50)
[2022-08-13] MEDS: TRIAMCINOLONE ACET 0.1% CREAM 15 GM TUBE 1 APPLIC TOPICAL (09:38)
[2022-08-13] MEDS: ACETAMINOPHEN 325 MG TABLET 650 MG PO (09:42)
[2022-08-13 11:38] LABS: Glucose Point of Care 119 mg/dl (65-105)
[2022-08-13 16:37] LABS: Glucose Point of Care 147 mg/dl (65-105)
[2022-08-13] MEDS: MUPIROCIN 2% OINT 22 GM TUBE 1 APPLIC EACH NARE (20:18)
[2022-08-13] MEDS: BACLOFEN 10 MG TABLET PO (20:18)
[2022-08-13] MEDS: GABAPENTIN 100 MG CAPSULE 200 MG PO (20:18)
[2022-08-13] MEDS: TAMSULOSIN HCL 0.4 MG CAPSULE PO (20:18)
[2022-08-14] VITALS (13 sets, daily range): BP systolic 135–139; BP diastolic 74–78; PULSE 74–100; RESP 14–20; TEMP 36.3–36.5; O2SAT 98–100
[2022-08-14] MEDS: ALBUTEROL SULFATE NEB 2.5 MG/3 ML INH INHALATION ×5 (04:23→20:09)
[2022-08-14 06:20] LABS: Basophils Absolute Auto 0.1 K/mm3 (0.0-0.1); Basophils Percent Auto 0.8 % (0.2-1.2); Eosinophils Absolute Auto 0.7 K/mm3 (0-0.3); Hematocrit 40.2 % (42.0-52.0); Hemoglobin 12.3 g/dL (14.0-18.0); Immature Granulocyte Absolute 0.05 K/mm3 (0.00-0.031); Immature Granulocyte Percent A 0.7 % (0-0.5); Lymphocytes Absolute Auto 0.78 K/mm3 (0.9-3.2); Lymphocytes Percent Auto 10.7 % (18.3-44.2); Mean Corpuscular HGB Conc 30.6 g/dl (32-36); Mean Corpuscular Hemoglobin 30.3 pg (26-34); Mean Platelet Volume 12.3 fl (7.4-10.4); Monocytes Absolute Auto 0.8 K/mm3 (0.1-0.6); Monocytes Percent Auto 11.3 % (2.6-8.5); Neutrophils Absolute Auto 4.9 K/mm3 (1.3-6.7); Neutrophils Percent Auto 67.5 % (45.5-73.1); Platelet Count Result 124 k/mm3 (150-375); Red Blood Count 4.06 M/mm3 (4.6-6.20); Red Cell Distribution Width 14.5 % (11.5-14.5); White Blood Count 7.3 K/mm3 (4.5-10.0)
[2022-08-14 06:36] LABS: Alanine Aminotransferase 24 U/L (6-50); Albumin Level 3.4 g/dL (3.5-5.1); Alkaline Phosphatase 95 U/L (38-126); Anion Gap 3 mmol/L (8-16); Aspartate Amino Transferase 20 U/L (17-59); Blood Urea Nitrogen 28 mg/dL (9-20); Calcium 8.6 mg/dL (8.4-10.2); Carbon Dioxide 28 mmol/L (22-30); Chloride 100 mmol/L (98-107); Estimated CRCL calculation 49 ml/min; Estimated Glomerular Filt Rate 43; Glucose 114 mg/dL (65-110); Potassium 3.8 mmol/L (3.4-5.0); Sodium 131 mmol/L (137-145)
[2022-08-14] MEDS: metroNIDAZOLE 500 MG/ISO 100ML 500 MG/100 ML BAG 100 MG IVPB ×3 (06:43→21:28)
[2022-08-14] MEDS: FLUTICASONE/UMECLIDIN/VILANTER 100-62.5-25 MCG ELLIPTA 1 PUFF INHALATION (07:00)
[2022-08-14] MEDS: ACETAMINOPHEN 325 MG TABLET 650 MG PO ×2 (08:19→21:26)
[2022-08-14] MEDS: ROFLUMILAST 500 MCG TABLET PO (08:22)
[2022-08-14] MEDS: SPIRONOLACTONE 12.5 MG TABLET PO (08:22)
[2022-08-14] MEDS: ASPIRIN 81 MG ENTERIC TABLET PO (08:22)
[2022-08-14] MEDS: POTASSIUM CHLORIDE 20 MEQ TABLET.ER PO (08:22)
[2022-08-14] MEDS: MAGNESIUM OXIDE 400 MG TABLET PO ×2 (08:22→17:03)
[2022-08-14] MEDS: PANTOPRAZOLE 40 MG TABLET PO (08:22)
[2022-08-14] MEDS: METOPROLOL SUCCINATE EXT REL 50 MG TABCR PO (08:23)
[2022-08-14] MEDS: PYRIDOXINE HCL 50 MG TABLET 100 MG PO (08:23)
[2022-08-14] MEDS: BUMETANIDE 0.5 MG TABLET PO (08:24)
[2022-08-14] MEDS: LORATADINE 10 MG TABLET PO (08:24)
[2022-08-14] MEDS: APIXABAN 5 MG TABLET PO ×2 (08:24→17:03)
[2022-08-14] MEDS: TRIAMCINOLONE ACET 0.1% CREAM 15 GM TUBE 1 APPLIC TOPICAL ×2 (08:25→08:30)
[2022-08-14] MEDS: MUPIROCIN 2% OINT 22 GM TUBE 1 APPLIC EACH NARE ×2 (08:32→21:30)
--- NOTE | 2022-08-14 10:01 | PM.IMPN ---
Progress Note: A&P Assessment and Plan (1) Left leg cellulitis: Code(s): L03.116 - Cellulitis of left lower limb Status: Acute Assessment and Plan: He presented to the emergency department the direction of his doctor for evaluation of left leg redness, pain, and swelling. On Tuesday he developed redness on the left sue which has gotten progressively worse and painful with burning and occasional stabbing pain in that leg, much worse with touch. Started on empiric broad spectrum antibiotics- vancomycin, cefepime and flagyl. Deescalate antibiotics pending further improvement and negative blood cultures. No purulent drainage. Elevate BLE to control edema. Add magalys wraps BLE. Increase bumex 1 mg BID IV. Minimal improvement today. Increased edema. Possible secondary infection from chronic venous stasis versus stasis dermatitis given there is erythema on both legs, although left leg significantly more red than left. No pruritus- stop steroid cream. (2) Venous stasis dermatitis of both lower extremities: Code(s): I87.2 - Venous insufficiency (chronic) (peripheral) Status: Chronic Assessment and Plan: as above. (3) History of MRSA infection: Code(s): Z86.14 - Personal history of Methicillin resistant Staphylococcus aureus infection Status: Chronic Assessment and Plan: Cellulitis nonpurulent. Currently on Vancomycin and takes chronic doxycycline. He denies prior decolonization. Start bactroban nasal ointment. (4) Chronic kidney disease: Code(s): N18.9 - Chronic kidney disease, unspecified Status: Chronic Assessment and Plan: BUN 32, creatinine 1.6, GFR 43; baseline creatinine 1.3. Stable, does not appear overtly hypovolemic or hypervolemic. Continue home diuretics and monitor renal function on antibiotic therapy. 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 Continue home therapy. (7) Obstructive sleep apnea treated with BiPAP: Code(s): G47.33 - Obstructive sleep apnea (adult) (pediatric) Status: Chronic Assessment and Plan: Continue noctural bipap while inpatient. (8) Paroxysmal atrial fibrillation: Code(s): I48.0 - Paroxysmal atrial fibrillation Status: Chronic Assessment and Plan: Chronic, stable. Continue metoprolol and Eliquis at home doses. (9) Chronic obstructive pulmonary disease: Code(s): J44.9 - Chronic obstructive pulmonary disease, unspecified Status: Chronic Assessment and Plan: Chronic, no wheezing on exam to suggest acute exacerbation. Trelegy inhaler and Q6 albuterol nebs which is his home therapy. Plan CODE STATUS: FULL CODE Disposition: from home. Time Spent With Patient Time: 30 minutes time spent with patient assessment, patient education, review of labs, vitals and nursing documentation. Subjective Date/time seen: 08/14/22 10:01 Interval history: He thinks the redness to his legs is unchanged, but both legs are more swollen. He is sitting up in the chair with legs in the dependent position. He states he has been elevating his legs throughout the day though. He has tried compression stockings at home and has difficulty putting them on since he needs a shoe horn. No pruritus, open lesions. He has neuropathy and dyspnea on exertion, which is unchanged from baseline. Review of Systems Review of Systems: All systems reviewed & are unremarkable except as noted in HPI and below Exam Narrative: General: Chronically ill-appearing sitting up in the chair in no distress. HEENT: Pupils equal and round. Sclera anicteric. O
[2022-08-14] MEDS: BUMETANIDE INJ 1 MG/4 ML VIAL IV PUSH ×2 (10:40→17:04)
[2022-08-14] MEDS: POTASSIUM CHLORIDE 20 MEQ TABLET 40 MEQ PO (11:03)
--- NOTE | 2022-08-14 17:45 | PC.NURSE ---
Patient request the magalys wraps off
[2022-08-14] MEDS: BACLOFEN 10 MG TABLET PO (21:26)
[2022-08-14] MEDS: GABAPENTIN 100 MG CAPSULE 200 MG PO (21:26)
[2022-08-14] MEDS: TAMSULOSIN HCL 0.4 MG CAPSULE PO (21:29)
[2022-08-15] VITALS (13 sets, daily range): BP systolic 117–132; BP diastolic 69–76; PULSE 68–86; RESP 14–20; TEMP 36.2–37.1; O2SAT 95–99
[2022-08-15] MEDS: ALBUTEROL SULFATE NEB 2.5 MG/3 ML INH INHALATION ×4 (00:18→20:49)
[2022-08-15] MEDS: ACETAMINOPHEN 325 MG TABLET 650 MG PO ×4 (03:31→22:06)
[2022-08-15] MEDS: metroNIDAZOLE 500 MG/ISO 100ML 500 MG/100 ML BAG 100 MG IVPB (06:15)
[2022-08-15 06:56] LABS: Basophils Absolute Auto 0.1 K/mm3 (0.0-0.1); Basophils Percent Auto 0.7 % (0.2-1.2); Eosinophils Absolute Auto 0.7 K/mm3 (0-0.3); Eosinophils Percent Auto 7.9 % (0-4.4); Hemoglobin 12.4 g/dL (14.0-18.0); Immature Granulocyte Absolute 0.06 K/mm3 (0.00-0.031); Immature Granulocyte Percent A 0.7 % (0-0.5); Lymphocytes Absolute Auto 0.95 K/mm3 (0.9-3.2); Lymphocytes Percent Auto 11.4 % (18.3-44.2); Mean Corpuscular HGB Conc 31.8 g/dl (32-36); Mean Corpuscular Hemoglobin 30.1 pg (26-34); Mean Corpuscular Volume 94.7 fl (80-100); Mean Platelet Volume 12.3 fl (7.4-10.4); Monocytes Percent Auto 11.8 % (2.6-8.5); Neutrophils Absolute Auto 5.7 K/mm3 (1.3-6.7); Neutrophils Percent Auto 67.5 % (45.5-73.1); Platelet Count Result 138 k/mm3 (150-375); Red Blood Count 4.12 M/mm3 (4.6-6.20); Red Cell Distribution Width 14.5 % (11.5-14.5); White Blood Count 8.4 K/mm3 (4.5-10.0)
[2022-08-15 07:07] LABS: Alanine Aminotransferase 25 U/L (6-50); Albumin Level 3.7 g/dL (3.5-5.1); Alkaline Phosphatase 98 U/L (38-126); Anion Gap 5 mmol/L (8-16); Aspartate Amino Transferase 24 U/L (17-59); Blood Urea Nitrogen 30 mg/dL (9-20); CRP 1.7 mg/dL (<1.0); Calcium 8.8 mg/dL (8.4-10.2); Carbon Dioxide 27 mmol/L (22-30); Chloride 100 mmol/L (98-107); Estimated CRCL calculation 47 ml/min; Estimated Glomerular Filt Rate 40; Glucose 112 mg/dL (65-110); Sodium 132 mmol/L (137-145)
[2022-08-15 07:37] LABS: Procalcitonin 0.4 ng/mL
[2022-08-15] MEDS: POTASSIUM CHLORIDE 20 MEQ TABLET.ER PO (08:52)
[2022-08-15] MEDS: PYRIDOXINE HCL 50 MG TABLET 100 MG PO (08:52)
[2022-08-15] MEDS: MAGNESIUM OXIDE 400 MG TABLET PO ×2 (08:52→16:44)
[2022-08-15] MEDS: APIXABAN 5 MG TABLET PO ×2 (08:53→16:44)
[2022-08-15] MEDS: LORATADINE 10 MG TABLET PO (08:53)
[2022-08-15] MEDS: PANTOPRAZOLE 40 MG TABLET PO (08:53)
[2022-08-15] MEDS: SPIRONOLACTONE 12.5 MG TABLET PO (08:53)
[2022-08-15] MEDS: ROFLUMILAST 500 MCG TABLET PO (08:53)
[2022-08-15] MEDS: ASPIRIN 81 MG ENTERIC TABLET PO (08:53)
[2022-08-15] MEDS: FERROUS SULFATE 324 MG TABLET PO (08:53)
[2022-08-15] MEDS: METOPROLOL SUCCINATE EXT REL 50 MG TABCR PO (08:54)
[2022-08-15] MEDS: BUMETANIDE INJ 1 MG/4 ML VIAL IV PUSH (08:54)
[2022-08-15] MEDS: MUPIROCIN 2% OINT 22 GM TUBE 1 APPLIC EACH NARE ×2 (08:58→20:46)
[2022-08-15] MEDS: FLUTICASONE/UMECLIDIN/VILANTER 100-62.5-25 MCG ELLIPTA 1 PUFF INHALATION (11:37)
--- NOTE | 2022-08-15 12:46 | PM.IMPN ---
Progress Note: A&P Assessment and Plan (1) Left leg cellulitis: Code(s): L03.116 - Cellulitis of left lower limb Status: Acute Assessment and Plan: He presented to the emergency department the direction of his doctor for evaluation of left leg redness, pain, and swelling. On Tuesday he developed redness on the left sue which has gotten progressively worse and painful with burning and occasional stabbing pain in that leg, much worse with touch. Started on empiric broad spectrum antibiotics- vancomycin, cefepime and flagyl. Deescalate antibiotics pending further improvement and negative blood cultures. No purulent drainage. Elevate BLE to control edema. Add magalys wraps BLE. Increase bumex 1 mg BID IV. Minimal improvement today. Increased edema. Possible secondary infection from chronic venous stasis versus stasis dermatitis given there is erythema on both legs, although left leg significantly more red than left. No pruritus- stop steroid cream. 08/15 change to keflex 500 mg TID and resume doxycycline. Patient does have MRSA in nares, however, I do not feel this is a MRSA cellulitis as there is no purulent drainage, abscess formation or fluctuant masses palpated. (2) Venous stasis dermatitis of both lower extremities: Code(s): I87.2 - Venous insufficiency (chronic) (peripheral) Status: Chronic Assessment and Plan: as above. (3) History of MRSA infection: Code(s): Z86.14 - Personal history of Methicillin resistant Staphylococcus aureus infection Status: Chronic Assessment and Plan: Cellulitis nonpurulent. Currently on Vancomycin and takes chronic doxycycline. He denies prior decolonization. Start bactroban nasal ointment. (4) Chronic kidney disease: Qualifiers: Chronic kidney disease stage: stage 3 (moderate) Chronic kidney disease stage 3 subtype: stage 3a (GFR 45-59) Qualified Code(s): N18.31 - Chronic kidney disease, stage 3a Code(s): N18.9 - Chronic kidney disease, unspecified Status: Chronic Assessment and Plan: BUN 32, creatinine 1.6, GFR 43; baseline creatinine 1.3. 08/15/22 Cr 1.7, BUN 30, GFR 40- mild worsening from baseline. Will stop diuretics. Lower extremities with improved edema and wrinkling noted. Will transition to oral medication in the morning and repeat renal function. Vancomycin stopped today when transitioned to oral medications. 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 Continue home therapy. (7) Obstructive sleep apnea treated with BiPAP: Code(s): G47.33 - Obstructive sleep apnea (adult) (pediatric) Status: Chronic Assessment and Plan: Continue noctural bipap while inpatient. (8) Paroxysmal atrial fibrillation: Code(s): I48.0 - Paroxysmal atrial fibrillation Status: Chronic Assessment and Plan: Chronic, stable. Continue metoprolol and Eliquis at home doses. (9) Chronic obstructive pulmonary disease: Qualifiers: COPD type: unspecified COPD Qualified Code(s): J44.9 - Chronic obstructive pulmonary disease, unspecified Code(s): J44.9 - Chronic obstructive pulmonary disease, unspecified Status: Chronic Assessment and Plan: Chronic, no wheezing on exam to suggest acute exacerbation. Trelegy inhaler and Q6 albuterol nebs which is his home therapy. Stable. Plan CODE STATUS: FULL CODE Disposition: from home. Time Spent With Patient Time: 30 minutes time spent with patient assessment, patient education, review of labs, vitals and nursing documentation. All questions answered to the best of my ability. El
[2022-08-15] MEDS: CEPHALEXIN 500 MG CAPSULE PO ×2 (13:55→20:45)
[2022-08-15] MEDS: BUMETANIDE 0.5 MG TABLET PO (16:44)
[2022-08-15] MEDS: BACLOFEN 10 MG TABLET PO (20:45)
[2022-08-15] MEDS: TAMSULOSIN HCL 0.4 MG CAPSULE PO (20:45)
[2022-08-15] MEDS: GABAPENTIN 100 MG CAPSULE 200 MG PO (20:46)
[2022-08-16] VITALS (11 sets, daily range): BP systolic 129–135; BP diastolic 71–76; PULSE 72–98; RESP 17–20; TEMP 36.1–36.6; O2SAT 93–100
[2022-08-16] MEDS: ALBUTEROL SULFATE NEB 2.5 MG/3 ML INH INHALATION ×3 (00:34→07:40)
[2022-08-16] MEDS: CEPHALEXIN 500 MG CAPSULE PO ×2 (05:17→13:31)
[2022-08-16 07:23] LABS: Basophils Absolute Auto 0.1 K/mm3 (0.0-0.1); Basophils Percent Auto 0.8 % (0.2-1.2); Eosinophils Absolute Auto 0.7 K/mm3 (0-0.3); Eosinophils Percent Auto 8.9 % (0-4.4); Hematocrit 40.9 % (42.0-52.0); Hemoglobin 12.9 g/dL (14.0-18.0); Immature Granulocyte Absolute 0.09 K/mm3 (0.00-0.031); Immature Granulocyte Percent A 1.2 % (0-0.5); Lymphocytes Percent Auto 11.9 % (18.3-44.2); Mean Corpuscular HGB Conc 31.5 g/dl (32-36); Mean Corpuscular Hemoglobin 30.1 pg (26-34); Mean Corpuscular Volume 95.6 fl (80-100); Mean Platelet Volume 12.9 fl (7.4-10.4); Monocytes Absolute Auto 0.8 K/mm3 (0.1-0.6); Monocytes Percent Auto 9.9 % (2.6-8.5); Neutrophils Absolute Auto 5.1 K/mm3 (1.3-6.7); Neutrophils Percent Auto 67.3 % (45.5-73.1); Platelet Count Result 142 k/mm3 (150-375); Red Blood Count 4.28 M/mm3 (4.6-6.20); Red Cell Distribution Width 14.6 % (11.5-14.5); White Blood Count 7.5 K/mm3 (4.5-10.0)
[2022-08-16 07:35] LABS: Estimated CRCL calculation 53 ml/min; Estimated Glomerular Filt Rate 46; Magnesium 1.8 mg/dL (1.6-2.3); Phosphorus 3.5 mg/dL (2.5-4.5)
[2022-08-16] MEDS: FLUTICASONE/UMECLIDIN/VILANTER 100-62.5-25 MCG ELLIPTA 1 PUFF INHALATION (07:40)
[2022-08-16] MEDS: APIXABAN 5 MG TABLET PO (08:15)
[2022-08-16] MEDS: ROFLUMILAST 500 MCG TABLET PO (08:15)
[2022-08-16] MEDS: LORATADINE 10 MG TABLET PO (08:15)
[2022-08-16] MEDS: ASPIRIN 81 MG ENTERIC TABLET PO (08:16)
[2022-08-16] MEDS: BUMETANIDE 0.5 MG TABLET PO (08:16)
[2022-08-16] MEDS: FERROUS SULFATE 324 MG TABLET PO (08:16)
[2022-08-16] MEDS: POTASSIUM CHLORIDE 20 MEQ TABLET.ER PO (08:16)
[2022-08-16] MEDS: SPIRONOLACTONE 12.5 MG TABLET PO (08:16)
[2022-08-16] MEDS: PANTOPRAZOLE 40 MG TABLET PO (08:16)
[2022-08-16] MEDS: METOPROLOL SUCCINATE EXT REL 50 MG TABCR PO (08:16)
[2022-08-16] MEDS: PYRIDOXINE HCL 50 MG TABLET 100 MG PO (08:16)
[2022-08-16] MEDS: MAGNESIUM OXIDE 400 MG TABLET PO (08:16)
[2022-08-16] MEDS: DOXYCYCLINE HYCLATE 100 MG TABLET PO (08:16)
[2022-08-16] MEDS: MUPIROCIN 2% OINT 22 GM TUBE 1 APPLIC EACH NARE (08:18)
[2022-08-16] MEDS: ACETAMINOPHEN 325 MG TABLET 650 MG PO (08:21)
[2022-08-16 09:14] LABS: Procalcitonin 0.4 ng/mL
--- NOTE | 2022-08-16 13:03 | PM.DS ---
DS: Admitting Diagnosis Discharge Date 08/16/2022 Admitting Diagnosis Cellulitis of left lower limb Personal history of Methicillin resistant Staphylococcus aureus infection DS: Discharge Diagnosis Discharge Diagnosis (1) Left leg cellulitis: Code(s): L03.116 - Cellulitis of left lower limb Status: Acute Assessment and Plan: He presented to the emergency department the direction of his doctor for evaluation of left leg redness, pain, and swelling. On Tuesday, he developed redness on the left sue which progressively worsened and painful with burning and occasional stabbing pain, much worse with touch. Started on empiric broad spectrum antibiotics- vancomycin, cefepime and flagyl, first dose 08/12/22 No purulent drainage. Elevate BLE to control edema. attempted magalys wraps BLE for compression. Increased bumex 1 mg BID IV x24 hours Presemed secondary infection from chronic venous stasis given there is erythema on both legs, although left leg significantly more red than left. No pruritus- stopped steroid cream. 08/15 changed to keflex 500 mg TID and resume doxycycline prophylaxis dose. Patient does have MRSA in nares, however, I do not feel this is a MRSA cellulitis as there is no purulent drainage, abscess formation or fluctuant masses palpated. (2) Venous stasis dermatitis of both lower extremities: Code(s): I87.2 - Venous insufficiency (chronic) (peripheral) Status: Chronic Assessment and Plan: as above. (3) History of MRSA infection: Code(s): Z86.14 - Personal history of Methicillin resistant Staphylococcus aureus infection Status: Chronic Assessment and Plan: Cellulitis nonpurulent. Currently on Vancomycin and takes chronic doxycycline. He denies prior decolonization. Started bactroban nasal ointment BID x 5 days (4) Chronic kidney disease: Qualifiers: Chronic kidney disease stage: stage 3 (moderate) Chronic kidney disease stage 3 subtype: stage 3a (GFR 45-59) Qualified Code(s): N18.31 - Chronic kidney disease, stage 3a Code(s): N18.9 - Chronic kidney disease, unspecified Status: Chronic Assessment and Plan: BUN 32, creatinine 1.6, GFR 43; baseline creatinine 1.3. 08/15/22 Cr 1.7, BUN 30, GFR 40- mild worsening from baseline. Will stop IV diuretics. Lower extremities with improved edema and wrinkling noted. Will transition to oral medication the following day and repeat renal function. Vancomycin stopped when transitioned to oral medications. 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 Continue home therapy. (7) Obstructive sleep apnea treated with BiPAP: Code(s): G47.33 - Obstructive sleep apnea (adult) (pediatric) Status: Chronic Assessment and Plan: Continue noctural bipap while inpatient. (8) Paroxysmal atrial fibrillation: Code(s): I48.0 - Paroxysmal atrial fibrillation Status: Chronic Assessment and Plan: Chronic, stable. Continue metoprolol and Eliquis at home doses. (9) Chronic obstructive pulmonary disease: Qualifiers: COPD type: unspecified COPD Qualified Code(s): J44.9 - Chronic obstructive pulmonary disease, unspecified Code(s): J44.9 - Chronic obstructive pulmonary disease, unspecified Status: Chronic Assessment and Plan: Chronic, no wheezing on exam to suggest acute exacerbation. Trelegy inhaler and Q6 albuterol nebs which is his home therapy. Stable. DS: Summary Hospital Course Reason for hospitalization: Left leg redness, pain and swelling Hospital Course: Mason Keys is a 71-year-old male
== END 2022-08-16 15:20 | disposition home or self-care (01) | DRG 603 ==
LOC: ANHED 13:14 → ANH3MEDSUR 16:57
PROVIDERS: Physician Assistant; Admitting Provider Internal Medicine; Emergency Provider Emergency Medicine; PCP Emergency Medicine; Visit Provider Nurse Practitioner Family
DX: L03.116 Cellulitis of left lower limb (principal); I13.0 Hypertensive heart and chronic kidney disease with heart failure and stage 1 through stage 4 chronic kidney disease, or unspecified chronic kidney disease; I50.32 Chronic diastolic (congestive) heart failure; I87.2 Venous insufficiency (chronic) (peripheral); N18.31 Chronic kidney disease, stage 3a; I48.0 Paroxysmal atrial fibrillation; J44.9 Chronic obstructive pulmonary disease, unspecified; G47.33 Obstructive sleep apnea (adult) (pediatric); K74.60 Unspecified cirrhosis of liver; Z79.01 Long term (current) use of anticoagulants; Z86.14 Personal history of Methicillin resistant Staphylococcus aureus infection; Z79.899 Other long term (current) drug therapy
CPT/HCPCS: 36415; 80048; 80053; 82565; 82948; 83735; 84100; 84145; 85025; 85027; 85055; 86140; 87040; 87081; 93970; 94640; 96361; 96365; 96366; 96367; 96375; 99285; A9270; G0378; J0692; J3010; J3370; J7030

== ENCOUNTER 2022-12-10 15:41 | Emergency (ER) | payer MEDICARE, SELFPAY ==
--- NOTE | ~2022-12-10 | XR_ITS ---
EXAM: XR shoulder RT min 2V DATE: 12/10/2022 16:16 HISTORY: fall LAST NIGHT OUT OF WHEELCHAIR . COMPARISON: 09/20/2007. FINDINGS: Normal mineralization. No fracture or dislocation. No lytic or blastic lesion. Moderate AC joint and glenohumeral joint degenerative change. Inferior AC joint osteophytosis and acromial tip e nthesopathy. No erosion or periosteal change. Soft tissues within normal limits. IMPRESSION: No acute osseous finding in the right shoulder. Reviewed, dictated and finalized at location K.
--- NOTE | ~2022-12-10 | XR_ITS ---
EXAM: XR finger 3rd RT min 2V DATE: 12/10/2022 16:16 HISTORY: fall . COMPARISON: 12/06/2011. FINDINGS: Decreased mineralization. Oblique fracture through the dorsal base of the distal right thi rd phalange, with 2 mm distraction. No lytic or blastic lesion. Scattered moderate degenerative barth es. No erosion or periosteal change. Soft tissues within normal limits. IMPRESSION: Oblique fracture of the dorsal base of the right third phalange (mallet finger), with 2 m m distraction. Reviewed, dictated and finalized at location K. IMPRESSION: Oblique fracture of the dorsal base of the right third phalange (ma llet finger), with 2 mm distraction.
[2022-12-10 15:43] VITALS: BP 125/73; PULSE 84; RESP 20; TEMP 36.3; O2SAT 98
--- NOTE | 2022-12-10 17:47 | PC.NURSE ---
Patient able to stand and ambulate while using walker
--- NOTE | 2022-12-10 18:04 | ED.FALL ---
HPI - Fall General Chief Complaint: Fall Stated Complaint: Fell out of wheelchair Time Seen by Provider: 12/10/22 16:31 History of Present Illness HPI Narrative: 72-year-old male presented to the emergency department for evaluation after having a fall from his wheelchair. Patient injured his right hand and his right shoulder. Patient denies striking head denies loss of consciousness. Related Data Home Medications Medication Instructions Recorded Confirmed ferrous sulfate 324 mg (65 mg 324 mg PO DAILY 04/05/19 11/05/22 iron) tablet,delayed release omeprazole 40 mg capsule,delayed 40 mg PO DAILY 04/05/19 11/30/22 release tamsulosin 0.4 mg capsule (Flomax) 0.4 mg PO HS 04/05/19 11/30/22 aspirin 81 mg tablet,delayed 81 mg PO DAILY 05/21/19 11/30/22 release cetirizine 10 mg tablet 10 mg PO DAILY 08/04/19 11/30/22 acetaminophen 325 mg capsule 325 mg PO Q6H PRN Pain 03/17/20 11/30/22 diphenhydramine HCl 25 mg capsule 25 mg PO HS PRN Allergy Symptoms 09/12/20 11/30/22 (Benadryl) bumetanide 0.5 mg tablet 0.5 mg PO BID 11/17/20 11/30/22 magnesium oxide 400 mg PO BID 03/04/21 11/30/22 pyridoxine (vitamin B6) 100 mg 100 mg PO DAILY 03/04/21 11/30/22 tablet gabapentin 100 mg capsule 200 mg PO QHS 12/17/21 11/30/22 apixaban 5 mg tablet (Eliquis) 5 mg PO BID 05/26/22 11/30/22 roflumilast 500 mcg tablet 500 mcg PO DAILY 05/26/22 11/30/22 (Daliresp) nystatin 100,000 unit/gram topical 1 applic topical BID PRN Rash 08/12/22 11/30/22 cream Allergies Allergy/AdvReac Type Severity Reaction Status Date / Time levofloxacin Allergy Intermediate Swelling Verified 11/30/22 14:57 of the Eye Penicillins Allergy Intermediate Hives Verified 11/30/22 14:57 scopolamine Allergy Mild Confusion Verified 11/30/22 14:57 tobramycin Allergy Mild Hallucinati Verified 11/30/22 14:57 ng pepper (genus Capsicum) AdvReac Intermediate Nausea and Verified 11/30/22 14:57 Vomiting Review of Systems Review of Systems: All systems reviewed & are unremarkable except as noted in HPI and below PMFSH Past Medical History Medical History Benign prostatic hyperplasia Cerebrovascular accident Chronic anticoagulation Chronic diastolic heart failure Chronic kidney disease Chronic obstructive pulmonary disease Cirrhosis Deep venous thrombosis Gastroesophageal reflux disease MRSA (methicillin resistant Staphylococcus aureus) infection The patient had a spinal abscess L1-L2 complicated was septicemia and then had 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 On long-term doxycycline. Obstructive sleep apnea treated with BiPAP Paroxysmal atrial fibrillation Pneumothorax on left Surgical History Surgical History History of back surgery History of bilateral cataract extraction History of bilateral hip replacements History of colonoscopy with polypectomy History of revision of total replacement of hip joint History of tracheostomy Status post excision of lipoma Neck. Family History Family History Mother Family history of cardiovascular disease Family history of coronary artery disease Father Family history of liver disease Sibling Hypertension Cerebrovascular accident Chronic obstructive pulmonary disease Social History Social History Social History: Surrogate medical decision maker: Trinity Keys, spouse. Code status: Full code. Smoking packs per day: 1 Smoking cigarettes per day: 20.0 Years smoked: 7 Smoking pack-years: 7.00 Smoking status: Former smoker Tobacco type: cigarettes Smokeless tobacco user: chewing tobacco Smoking end date: 06/06/81 Alcohol intake: never Substance use: never Substance use type: does not use Lack of Transportation: No Lack of Food: Never True Current Hous
== END 2022-12-10 18:26 | disposition home or self-care (01) ==
PROVIDERS: Emergency Provider Emergency Medicine; PCP Emergency Medicine
DX: S46.911A Strain of unspecified muscle, fascia and tendon at shoulder and upper arm level, right arm, initial encounter (principal); S62.632A Displaced fracture of distal phalanx of right middle finger, initial encounter for closed fracture; I50.9 Heart failure, unspecified; I48.0 Paroxysmal atrial fibrillation; J44.9 Chronic obstructive pulmonary disease, unspecified; N18.9 Chronic kidney disease, unspecified; K74.60 Unspecified cirrhosis of liver; K21.9 Gastro-esophageal reflux disease without esophagitis; G47.33 Obstructive sleep apnea (adult) (pediatric); N40.0 Benign prostatic hyperplasia without lower urinary tract symptoms; Z96.643 Presence of artificial hip joint, bilateral; Z86.14 Personal history of Methicillin resistant Staphylococcus aureus infection; Z86.73 Personal history of transient ischemic attack (TIA), and cerebral infarction without residual deficits; Z87.891 Personal history of nicotine dependence; Z98.42 Cataract extraction status, left eye; Z98.41 Cataract extraction status, right eye; Z79.01 Long term (current) use of anticoagulants; Z79.82 Long term (current) use of aspirin; W05.0XXA Fall from non-moving wheelchair, initial encounter
CPT/HCPCS: 29130; 73030; 73140; 99284; A4565

== ENCOUNTER 2023-02-15 12:19 | Inpatient (IN) | payer MEDICARE, SELFPAY ==
[2023-02-15] VITALS (31 sets, daily range): BP systolic 100–132; BP diastolic 55–82; PULSE 62–88; RESP 12–21; TEMP 35.8–36.8; O2SAT 83–98; BMI 36.8
--- NOTE | ~2023-02-15 | XR_ITS ---
EXAMINATION: XR chest 1V portable DATE: 02/15/2023 15:23 INDICATION: Cough. Congestive heart failure. TECHNIQUE: A single frontal view of the chest was obtained. COMPARISON: Chest 2 views 07/21/2022, CT abdomen and pelvis 12/24/2019 FINDINGS: A calcified right lung nodule is consistent with old granulomatous disease. There is no pne umonia, pleural effusion, or pneumothorax. Cardiomegaly is noted. IMPRESSION: 1. Cardiomegaly. Reviewed, dictated and finalized at location A. IMPRESSION: 1. Cardiomegaly.
--- NOTE | ~2023-02-15 | CT_ITS ---
EXAMINATION:CT diagnostic chest wo con DATE: 02/15/2023 16:36 INDICATION: Pulmonary nodule. Hypertrophic pulmonary osteoarthropathy. TECHNIQUE: Computed tomography (CT) of the chest was performed without intravenous contrast. Automate d exposure control and iterative reconstruction technique were employed. The dose-length product (DLP ) was 643.06 mGy-cm. COMPARISON: Chest CT 04/06/2019 FINDINGS: Calcified pulmonary nodules and calcified hilar and mediastinal lymph nodes are consistent with old granulomatous disease. There is mild atelectasis bilaterally. There are a few scattered nodu les in the lungs measuring up to 4 mm, likely benign. There is mild peripheral scarring in left upper lobe and left lower lobe. No pleural effusion. Cardiomegaly is noted. No pericardial effusion. The g allbladder is distended, likely secondary to fasting. There is severe cervical spondylosis. There are bridging endplate osteophytes at multiple levels in the spine, consistent with diffuse idiopathic sk eletal hyperostosis (DISH). IMPRESSION: 1. No specific evidence of malignancy. Reviewed, dictated and finalized at location A.
--- NOTE | ~2023-02-15 | XR_ITS ---
EXAMINATION: XR tibia fibula RT 2V DATE: 02/15/2023 15:23 INDICATION: Right lower leg cellulitis. TECHNIQUE: 2 views of right tibia and fibula on 4 radiographs were obtained. COMPARISON: Left tibia and fibula radiographs 03/02/2022 FINDINGS: Bone alignment is normal. No fracture. There is severe right knee osteoarthritis. There is periosteal reaction of tibia and fibula. IMPRESSION: 1. Severe right knee osteoarthritis. 2. Periosteal reaction of the tibia and fibula. Similar periosteal reaction was seen a year ago in th e left lower leg. This finding may be secondary to venous stasis or less likely hypertrophic pulmonar y osteoarthropathy. Consider chest CT. Reviewed, dictated and finalized at location A. IMPRESSION: 1. Severe right knee osteoarthritis. 2. Periosteal reaction of the tibia and fibula. Similar periosteal reaction was seen a year ago in the left lower leg. This finding may be secondary to venous stasis or less likely hypertrophic pulmonary osteoarthropathy. Consider chest CT.
--- NOTE | ~2023-02-15 | CT_ITS ---
CT OF right tibia/fibula EXAMINATION: CT tibia/fibula RT wo con DATE: 02/15/2023 16:36 INDICATION: Concern for osteomyelitis TECHNIQUE: Computed tomography (CT) of the right lower extremity was performed without intravenous co ntrast. Automated exposure control and iterative reconstruction technique were employed. The dose-jacek gth product was 1025.12 mGy-cm. COMPARISON: X-ray right tibia fibula same date FINDINGS: Decreased osseous mineralization. Moderate degenerative changes in the right knee and right ankle. No fracture or dislocation. No osseous erosion. No lytic or blastic lesion. Enthesopathy of t he tibial tuberosity. Multifocal ossified excrescences at the proximal syndesmotic insertion on the t ibia and on the proximal, posterolateral aspect of the fibula, corresponding to the mature periosteal reaction described in the prior radiographs. Scattered vascular calcifications. Subcutaneous fat str anding. No suspicious solid or cystic soft tissue mass. IMPRESSION: No CT evidence of osteomyelitis. No soft tissue fluid collection to suggest abscess. Diffuse subcutaneous fat stranding may represent edema or cellulitis. Tibial and fibular periosteal reaction likely secondary to hypertrophic pulmonary osteoarthropathy or venous stasis. Reviewed, dictated and finalized at location K. IMPRESSION: No CT evidence of osteomyelitis. No soft tissue fluid collection to suggest abscess. Diffuse subcutaneous fat stranding may represent edema or cellulitis. Tibial and fibular periosteal reaction likely secondary to hypertrophic pulmona ry osteoarthropathy or venous stasis.
[2023-02-15 12:40] LABS: Basophils Absolute Auto 0.1 K/mm3 (0.0-0.1); Basophils Percent Auto 0.5 % (0.2-1.2); Eosinophils Absolute Auto 0.6 K/mm3 (0-0.3); Eosinophils Percent Auto 5.4 % (0-4.4); Hematocrit 40.5 % (42.0-52.0); Hemoglobin 12.6 g/dL (14.0-18.0); Immature Granulocyte Absolute 0.05 K/mm3 (0.00-0.031); Immature Granulocyte Percent A 0.5 % (0-0.5); Lymphocytes Absolute Auto 1.02 K/mm3 (0.9-3.2); Mean Corpuscular HGB Conc 31.1 g/dl (32-36); Mean Corpuscular Hemoglobin 29.9 pg (26-34); Mean Platelet Volume 12.3 fl (7.4-10.4); Monocytes Percent Auto 10.2 % (2.6-8.5); Neutrophils Absolute Auto 7.5 K/mm3 (1.3-6.7); Neutrophils Percent Auto 73.4 % (45.5-73.1); Platelet Count Result 138 k/mm3 (150-375); Red Blood Count 4.22 M/mm3 (4.6-6.20); Red Cell Distribution Width 14.5 % (11.5-14.5); White Blood Count 10.2 K/mm3 (4.5-10.0)
[2023-02-15 12:51] LABS: Carbon Dioxide 26 mmol/L (22-30); Chloride 103 mmol/L (98-107); Sodium 137 mmol/L (137-145)
[2023-02-15 12:52] LABS: Alanine Aminotransferase 26 U/L (6-50); Albumin Level 3.9 g/dL (3.5-5.1); Alkaline Phosphatase 101 U/L (38-126); Anion Gap 8 mmol/L (8-16); Aspartate Amino Transferase 30 U/L (17-59); Bilirubin,Total 0.7 mg/dL (0.2-1.3); Blood Urea Nitrogen 36 mg/dL (9-20); Calcium 9.5 mg/dL (8.4-10.2); Estimated CRCL calculation 39 ml/min; Estimated Glomerular Filt Rate 33; Glucose 115 mg/dL (65-110)
--- NOTE | 2023-02-15 15:01 | ED.EXTPRO ---
HPI - Extremity Problem General Chief complaint: Extremity Problem,Nontraumatic Stated complaint: leg swelling Time Seen by Provider: 02/15/23 14:15 History of Present Illness HPI Narrative: Patient is a 72-year-old male with a history of A-fib on Eliquis, CHF, hypertension presenting with leg pain. Patient's is at bedside and assists with the history. States that he was hospitalized here last August for bilateral lower extremity cellulitis. He was able to be discharged after 4 days of IV antibiotics. They have been using compression stockings to help with his leg swelling to prevent recurrent cellulitis. States that he has some skin sloughing off of his legs so they have been hesitant to use the compression stockings. Over the last several days he has had worsening redness and pain in bilateral lower extremities but the right is worse than the left. They are concerned for recurrence of cellulitis. They had an appointment with his PCP today but his pain was so severe that he said he needed to come to the ER. Complains of chronic shortness of breath related to COPD. He denies fevers or chills, chest pain, abdominal pain, numbness or weakness. Related Data Home Medications Medication Instructions Recorded Confirmed ferrous sulfate 324 mg (65 mg 324 mg PO DAILY 04/05/19 02/15/23 iron) tablet,delayed release omeprazole 40 mg capsule,delayed 40 mg PO DAILY 04/05/19 02/15/23 release tamsulosin 0.4 mg capsule (Flomax) 0.4 mg PO HS 04/05/19 02/15/23 aspirin 81 mg tablet,delayed 81 mg PO DAILY 05/21/19 02/15/23 release cetirizine 10 mg tablet 10 mg PO DAILY 08/04/19 02/15/23 acetaminophen 325 mg capsule 325 mg PO Q6H PRN Pain 03/17/20 02/15/23 diphenhydramine HCl 25 mg capsule 25 mg PO HS PRN Allergy Symptoms 09/12/20 02/15/23 (Benadryl) bumetanide 0.5 mg tablet 0.5 mg PO BID 11/17/20 02/15/23 magnesium oxide 400 mg PO BID 03/04/21 02/15/23 pyridoxine (vitamin B6) 100 mg 100 mg PO DAILY 03/04/21 02/15/23 tablet gabapentin 100 mg capsule 200 mg PO QHS 12/17/21 02/15/23 apixaban 5 mg tablet (Eliquis) 5 mg PO BID 05/26/22 02/15/23 Allergies Allergy/AdvReac Type Severity Reaction Status Date / Time levofloxacin Allergy Intermediate Swelling Verified 02/15/23 13:05 of the Eye Penicillins Allergy Intermediate Hives Verified 02/15/23 13:05 scopolamine Allergy Mild Confusion Verified 02/15/23 13:05 tobramycin Allergy Mild Hallucinati Verified 02/15/23 13:05 ng pepper (genus Capsicum) AdvReac Intermediate Nausea and Verified 02/15/23 13:05 Vomiting Review of Systems Review of Systems: All systems reviewed & are unremarkable except as noted in HPI and below PMFSH Past Medical History Medical History (Updated 02/19/23 @ 12:19 by Katiana Benites MD) Benign prostatic hyperplasia Cerebrovascular accident Chronic anticoagulation Chronic diastolic heart failure Chronic kidney disease Chronic obstructive pulmonary disease Cirrhosis Deep venous thrombosis Gastroesophageal reflux disease MRSA (methicillin resistant Staphylococcus aureus) infection The patient had a spinal abscess L1-L2 complicated was septicemia and then had 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 On long-term doxycycline. Obstructive sleep apnea treated with BiPAP Paroxysmal atrial fibrillation Pneumothorax on left Surgical History Surgical History History of back surgery History of bilateral cataract extraction History of bilateral hip replacements History of colonoscopy with polypectomy History of revision of total replacement of hip joint History of tracheostomy Status post excision of lipoma Neck. Family History Family History Mother Family history of cardiovascular disease Family history of coronary artery disease Father Family history of liver disease Sibling Hypertension Cerebrovascular accident C
[2023-02-15] MEDS: MORPHINE SULFATE (*CRX) 4 MG/ML INJ IV PUSH ×2 (15:34→18:48)
[2023-02-15 15:54] LABS: Lactic Acid Reflex 1.3 mmol/L (0.7-2.0)
[2023-02-15 16:04] LABS: NT Pro B Type Natriuretic Pept 1210 pg/mL (19.9-100)
[2023-02-15] MEDS: IPRATROPIUM BR 0.02% INH SOLN 0.5 MG/2.5 ML VIAL INHALATION (18:51)
[2023-02-15] MEDS: ALBUTEROL SULFATE NEB 2.5 MG/3 ML INH 5 MG INHALATION (18:52)
[2023-02-15] MEDS: ceFAZolin 1 GM/NS 50 ML 1 GM/50 ML BAG 50 GM (18:55)
--- NOTE | 2023-02-15 19:27 | PC.NURSE ---
This RN assumed care of patient. This RN took patient report from DONTAE Cunha.
--- NOTE | 2023-02-15 19:37 | PM.IMHP ---
H&P: HPI History of Present Illness Date/Time: 02/15/23 19:37 Chief Complaint: RLE redness Narrative: EXAMINATION:CT diagnostic chest wo con DATE: 02/15/2023 16:36 INDICATION: Pulmonary nodule. Hypertrophic pulmonary osteoarthropathy. TECHNIQUE: Computed tomography (CT) of the chest was performed without intravenous contrast. Automated exposure control and iterative reconstruction technique were employed. The dose-length product (DLP) was 643.06 mGy-cm. COMPARISON: Chest CT 04/06/2019 FINDINGS: Calcified pulmonary nodules and calcified hilar and mediastinal lymph nodes are consistent with old granulomatous disease. There is mild atelectasis bilaterally. There are a few scattered nodules in the lungs measuring up to 4 mm, likely benign. There is mild peripheral scarring in left upper lobe and left lower lobe. No pleural effusion. Cardiomegaly is noted. No pericardial effusion. The gallbladder is distended, likely secondary to fasting. There is severe cervical spondylosis. There are bridging endplate osteophytes at multiple levels in the spine, consistent with diffuse idiopathic skeletal hyperostosis (DISH). IMPRESSION: 1. No specific evidence of malignancy. EXAMINATION: XR chest 1V portable DATE: 02/15/2023 15:23 INDICATION: Cough. Congestive heart failure. TECHNIQUE: A single frontal view of the chest was obtained. COMPARISON: Chest 2 views 07/21/2022, CT abdomen and pelvis 12/24/2019 FINDINGS: A calcified right lung nodule is consistent with old granulomatous disease. There is no pneumonia, pleural effusion, or pneumothorax. Cardiomegaly is noted. IMPRESSION: 1. Cardiomegaly. EXAMINATION: CT tibia/fibula RT wo con DATE: 02/15/2023 16:36 INDICATION: Concern for osteomyelitis TECHNIQUE: Computed tomography (CT) of the right lower extremity was performed without intravenous contrast. Automated exposure control and iterative reconstruction technique were employed. The dose-length product was 1025.12 mGy-cm. COMPARISON: X-ray right tibia fibula same date FINDINGS: Decreased osseous mineralization. Moderate degenerative changes in the right knee and right ankle. No fracture or dislocation. No osseous erosion. No lytic or blastic lesion. Enthesopathy of the tibial tuberosity. Multifocal ossified excrescences at the proximal syndesmotic insertion on the tibia and on the proximal, posterolateral aspect of the fibula, corresponding to the mature periosteal reaction described in the prior radiographs. Scattered vascular calcifications. Subcutaneous fat stranding. No suspicious solid or cystic soft tissue mass. IMPRESSION: No CT evidence of osteomyelitis. No soft tissue fluid collection to suggest abscess. Diffuse subcutaneous fat stranding may represent edema or cellulitis. Tibial and fibular periosteal reaction likely secondary to hypertrophic pulmonary osteoarthropathy or venous stasis. [facility] Past Medical History Medical History Benign prostatic hyperplasia Cerebrovascular accident Chronic anticoagulation Chronic diastolic heart failure Chronic obstructive pulmonary disease Cirrhosis Deep venous thrombosis Gastroesophageal reflux disease MRSA (methicillin resistant Staphylococcus aureus) infection The patient had a spinal abscess L1-L2 complicated was septicemia and then had 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 On long-term doxycycline. Obstructive sleep apnea treated with BiPAP Paroxysmal atrial fibrillation Pneumothorax on left Surgical History Surgical History History of back surgery History of bilateral cataract extraction History of bilateral hip replacements History of colonoscopy with polypectomy History of revision of total replacement of hip joint History of tracheostomy Status post excision of lipoma Neck. Family History Family History Mother
[2023-02-16] VITALS (20 sets, daily range): BP systolic 120–134; BP diastolic 60–66; PULSE 64–94; RESP 15–22; TEMP 36.1–36.5; O2SAT 90–100
--- NOTE | 2023-02-16 00:52 | PCRCNOTE ---
Window of time for administration has passed. See next scheduled administration.
[2023-02-16] MEDS: ACETAMINOPHEN 325 MG TABLET PO ×2 (01:29→06:17)
[2023-02-16] MEDS: ALBUTEROL SULFATE NEB 2.5 MG/3 ML INH NEBULIZE ×4 (03:15→21:14)
[2023-02-16] MEDS: IPRATROPIUM BR 0.02% INH SOLN 0.5 MG/2.5 ML VIAL INHALATION ×4 (03:15→21:15)
[2023-02-16 06:24] LABS: Estimated CRCL calculation 45 ml/min; Estimated Glomerular Filt Rate 40
[2023-02-16] MEDS: PYRIDOXINE HCL 50 MG TABLET 100 MG PO (08:57)
[2023-02-16] MEDS: METOPROLOL SUCCINATE EXT REL 50 MG TABCR PO (08:57)
[2023-02-16] MEDS: ROFLUMILAST 500 MCG TABLET PO (08:57)
[2023-02-16] MEDS: ceFAZolin 1 GM/NS 50 ML 1 GM/50 ML BAG IVPB ×2 (08:57→21:58)
[2023-02-16] MEDS: APIXABAN 5 MG TABLET PO ×2 (08:58→17:17)
[2023-02-16] MEDS: PANTOPRAZOLE 40 MG TABLET PO (08:58)
[2023-02-16] MEDS: ASPIRIN 81 MG ENTERIC TABLET PO (08:58)
[2023-02-16] MEDS: MAGNESIUM OXIDE 400 MG TABLET PO ×2 (08:58→17:17)
[2023-02-16] MEDS: LORATADINE 10 MG TABLET PO (08:58)
[2023-02-16] MEDS: FERROUS SULFATE 325 MG TABLET DR BY MOUTH (08:58)
[2023-02-16] MEDS: GABAPENTIN 100 MG CAPSULE 200 MG PO ×2 (09:29→20:17)
[2023-02-16] MEDS: HYDROcodone/acetaminophen (*CRX) 5-325 MG TABLET 1 TAB PO ×2 (11:54→18:11)
--- NOTE | 2023-02-16 16:22 | PM.IMPN ---
Progress Note: A&P Assessment and Plan (1) Cellulitis of right leg: Code(s): L03.115 - Cellulitis of right lower limb Status: Acute Assessment and Plan: Patient presumably has cellulitis of the right leg on admission. He was started on cefazolin and vancomycin. CT of the tibia and fibula showed no CT evidence of osteomyelitis. No fluid collection to suggest abscess. He does have diffuse subcu ceased at stranding. 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 Continue IV antibiotics. (2) Venous stasis dermatitis of both lower extremities: Code(s): I87.2 - Venous insufficiency (chronic) (peripheral) Status: Chronic Assessment and Plan: As above. Will hold on checking lower extremity venous Dopplers given that he is on Eliquis. Add Eucerin cream (3) Paroxysmal atrial fibrillation: Code(s): I48.0 - Paroxysmal atrial fibrillation Status: Chronic Assessment and Plan: Heart rate stable. He is on Toprol for rate control. He is also on Eliquis for stroke prophylaxis. Continue the same. Okay to stop telemetry (4) Obstructive sleep apnea treated with BiPAP: Code(s): G47.33 - Obstructive sleep apnea (adult) (pediatric) Status: Chronic Assessment and Plan: Stable. BiPAP spine ordered. (5) Chronic obstructive pulmonary disease: Qualifiers: COPD type: unspecified COPD Qualified Code(s): J44.9 - Chronic obstructive pulmonary disease, unspecified Code(s): J44.9 - Chronic obstructive pulmonary disease, unspecified Status: Chronic Assessment and Plan: Chest x-ray was clear. CT of the chest showed calcified pulmonary nodules but no acute findings. Continue nebulizer treatments which he uses 4 times a day at home. (6) Chronic back pain: Qualifiers: Back pain location: thoracic back pain Back pain laterality: left Qualified Code(s): M54.6 - Pain in thoracic spine; G89.29 - Other chronic pain Code(s): M54.9 - Dorsalgia, unspecified; G89.29 - Other chronic pain Status: Acute Assessment and Plan: Chronic. Prior related to osteomyelitis of L1-2 in 2018. (7) Cirrhosis: Qualifiers: Hepatic cirrhosis type: other cirrhosis Qualified Code(s): K74.69 - Other cirrhosis of liver Code(s): K74.60 - Unspecified cirrhosis of liver Status: Acute Assessment and Plan: Patient with a history of cirrhosis. Appears well compensated. (8) CHF (congestive heart failure): Qualifiers: Heart failure type: unspecified Heart failure chronicity: chronic Qualified Code(s): I50.9 - Heart failure, unspecified Code(s): I50.9 - Heart failure, unspecified Status: Chronic Assessment and Plan: Patient with history of chronic diastolic CHF. Appears well compensated. Subjective Date/time seen: 02/16/23 16:22 Interval history: 72yo male with COPD, dCHF, VALENTINA and pAFib here for lower extremity redness. Feels well. The legs were weeping prior to admission but not now. He has chronic scaly LE. He wears compression hose at home. No CP but always feels SOB. Exam Narrative: AF 97.7 120/60 67 16 99% ra Gen - NARD sitting up in chair Chest -few bibasilar inspiratory crackles otherwise distant breath sounds. CV -irregularly irregular S1-S2. Telemetry showing AFib with occasional PVCs. Abd - Soft, NT/ND, Positive BS Ext -trace pedal edema Neuro - Alert and oriented. Nonfocal exam. Psych - Nml mood and affect Skin -pink erythema noted right sue minimally warm to touch. Mild diffuse scale bilateral lower extremities worse on the dorsums the feet right greater than left. Objective Data Vital Signs Vital Signs: Vital Signs - 24 hr 02/15/23 16:37 02/15/23 17:01 02/15/23 18:55 Temperature 97.7 F Pulse Rate 82 65 72 Respiratory Rate 18 12 20 Blood Pressure 125/78 102/71 Pulse Oximetry 97 83 L Oxyge
[2023-02-16] MEDS: EUCERIN CREAM 120 GM JAR 1 APPLIC TOPICAL (18:11)
[2023-02-16] MEDS: BACLOFEN 10 MG TABLET PO (20:17)
[2023-02-16] MEDS: TAMSULOSIN HCL 0.4 MG CAPSULE PO (20:17)
[2023-02-17] VITALS (15 sets, daily range): BP systolic 95–131; BP diastolic 61; PULSE 66–86; RESP 15–20; TEMP 35.8–36.1; O2SAT 95–100
[2023-02-17] MEDS: IPRATROPIUM BR 0.02% INH SOLN 0.5 MG/2.5 ML VIAL INHALATION ×4 (02:29→21:17)
[2023-02-17] MEDS: ALBUTEROL SULFATE NEB 2.5 MG/3 ML INH NEBULIZE ×4 (02:29→21:17)
[2023-02-17 06:25] LABS: Basophils Absolute Auto 0.1 K/mm3 (0.0-0.1); Basophils Percent Auto 0.6 % (0.2-1.2); Eosinophils Absolute Auto 0.7 K/mm3 (0-0.3); Eosinophils Percent Auto 8.2 % (0-4.4); Hematocrit 39.6 % (42.0-52.0); Hemoglobin 12.2 g/dL (14.0-18.0); Immature Granulocyte Absolute 0.05 K/mm3 (0.00-0.031); Immature Granulocyte Percent A 0.6 % (0-0.5); Lymphocytes Absolute Auto 0.93 K/mm3 (0.9-3.2); Lymphocytes Percent Auto 11.2 % (18.3-44.2); Mean Corpuscular HGB Conc 30.8 g/dl (32-36); Mean Corpuscular Hemoglobin 29.8 pg (26-34); Mean Corpuscular Volume 96.6 fl (80-100); Monocytes Percent Auto 11.6 % (2.6-8.5); Neutrophils Absolute Auto 5.6 K/mm3 (1.3-6.7); Neutrophils Percent Auto 67.8 % (45.5-73.1); Platelet Count Result 111 k/mm3 (150-375); Red Cell Distribution Width 14.2 % (11.5-14.5); White Blood Count 8.3 K/mm3 (4.5-10.0)
[2023-02-17 06:35] LABS: Albumin Level 3.6 g/dL (3.5-5.1); Anion Gap 2 mmol/L (8-16); Blood Urea Nitrogen 27 mg/dL (9-20); Calcium 8.8 mg/dL (8.4-10.2); Carbon Dioxide 29 mmol/L (22-30); Chloride 102 mmol/L (98-107); Estimated CRCL calculation 51 ml/min; Estimated Glomerular Filt Rate 46; Glucose 98 mg/dL (65-110); Phosphorus 3.5 mg/dL (2.5-4.5); Potassium 3.9 mmol/L (3.4-5.0); Sodium 133 mmol/L (137-145)
[2023-02-17] MEDS: ceFAZolin 1 GM/NS 50 ML 1 GM/50 ML BAG IVPB ×2 (09:08→22:21)
[2023-02-17] MEDS: HYDROcodone/acetaminophen (*CRX) 5-325 MG TABLET 1 TAB PO ×2 (09:09→17:53)
[2023-02-17] MEDS: ROFLUMILAST 500 MCG TABLET PO (09:09)
[2023-02-17] MEDS: PYRIDOXINE HCL 50 MG TABLET 100 MG PO (09:09)
[2023-02-17] MEDS: MAGNESIUM OXIDE 400 MG TABLET PO ×2 (09:09→17:54)
[2023-02-17] MEDS: APIXABAN 5 MG TABLET PO ×2 (09:10→17:54)
[2023-02-17] MEDS: METOPROLOL SUCCINATE EXT REL 50 MG TABCR PO (09:10)
[2023-02-17] MEDS: PANTOPRAZOLE 40 MG TABLET PO (09:10)
[2023-02-17] MEDS: ASPIRIN 81 MG ENTERIC TABLET PO (09:10)
[2023-02-17] MEDS: FERROUS SULFATE 325 MG TABLET DR BY MOUTH (09:10)
[2023-02-17] MEDS: LORATADINE 10 MG TABLET PO (09:10)
[2023-02-17] MEDS: EUCERIN CREAM 120 GM JAR 1 APPLIC TOPICAL ×2 (09:13→17:54)
[2023-02-17] MEDS: polyethylene glycoL 3350 17 GM POWD.PACK PO (09:20)
--- NOTE | 2023-02-17 09:37 | PM.IMPN ---
Progress Note: A&P Assessment and Plan (1) Cellulitis of right leg: Code(s): L03.115 - Cellulitis of right lower limb Status: Acute Assessment and Plan: Patient presumably has cellulitis of the right leg on admission. He was started on cefazolin and vancomycin. CT of the tibia and fibula showed no CT evidence of osteomyelitis. No fluid collection to suggest abscess but does have diffuse subcutaneous fat stranding. 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 Continue IV antibiotics. (2) Venous stasis dermatitis of both lower extremities: Code(s): I87.2 - Venous insufficiency (chronic) (peripheral) Status: Chronic Assessment and Plan: As above. Continue Eucerin cream (3) Paroxysmal atrial fibrillation: Code(s): I48.0 - Paroxysmal atrial fibrillation Status: Chronic Assessment and Plan: Heart rate stable. He is on Toprol for rate control. He is also on Eliquis for stroke prophylaxis. Continue the same. (4) Obstructive sleep apnea treated with BiPAP: Code(s): G47.33 - Obstructive sleep apnea (adult) (pediatric) Status: Chronic Assessment and Plan: Stable. BiPAP ordered. (5) Chronic obstructive pulmonary disease: Qualifiers: COPD type: unspecified COPD Qualified Code(s): J44.9 - Chronic obstructive pulmonary disease, unspecified Code(s): J44.9 - Chronic obstructive pulmonary disease, unspecified Status: Chronic Assessment and Plan: Chest x-ray was clear. CT of the chest showed calcified pulmonary nodules but no acute findings. Continue nebulizer treatments which he uses 4 times a day at home. (6) Chronic back pain: Qualifiers: Back pain location: thoracic back pain Back pain laterality: left Qualified Code(s): M54.6 - Pain in thoracic spine; G89.29 - Other chronic pain Code(s): M54.9 - Dorsalgia, unspecified; G89.29 - Other chronic pain Status: Acute Assessment and Plan: Chronic. Add PT/OT (7) Cirrhosis: Qualifiers: Hepatic cirrhosis type: other cirrhosis Qualified Code(s): K74.69 - Other cirrhosis of liver Code(s): K74.60 - Unspecified cirrhosis of liver Status: Acute Assessment and Plan: Patient with a history of cirrhosis. Appears well compensated. (8) CHF (congestive heart failure): Qualifiers: Heart failure type: unspecified Heart failure chronicity: chronic Qualified Code(s): I50.9 - Heart failure, unspecified Code(s): I50.9 - Heart failure, unspecified Status: Chronic Assessment and Plan: Patient with history of chronic diastolic CHF. Appears well compensated. (9) Chronic kidney disease: Qualifiers: Chronic kidney disease stage: stage 3 (moderate) Qualified Code(s): N18.3 - Chronic kidney disease, stage 3 (moderate) Code(s): N18.9 - Chronic kidney disease, unspecified Status: Acute Assessment and Plan: Baseline creatinine is about 1.3-1.5 range. He was 1.8 over the summer. Creatinine 2.0 on admission. Has trended down to 1.5. Overall feel he is within his baseline. Continue to follow. Subjective Date/time seen: 02/17/23 09:37 Interval history: 72yo male with COPD, dCHF, VALENT[place] and pAFib here for lower extremity redness. Patient having morning congestion with cough productive clear sputum. This is a chronic condition for the patient. His legs feel less painful. He is able to bear weight on his legs with less pain. No chest pain. No nausea or vomiting. He has chronic shortness of breath. Exam Narrative: AF 96.7 131/61 76 20 97% ra Gen - NARD sitting up in chair Chest -distant faint expiratory wheezes with bibasilar rhonchi. CV -irregularly irregular S1-S Abd - Soft, NT/ND, Positive BS Ext -trace pedal edema. Psych - Nml mood and affect Skin -dark red-turner discoloration of bilateral lower extre
[2023-02-17] MEDS: ACETAMINOPHEN 325 MG TABLET PO (11:55)
[2023-02-17] MEDS: TAMSULOSIN HCL 0.4 MG CAPSULE PO (20:09)
[2023-02-17] MEDS: BACLOFEN 10 MG TABLET PO (20:09)
[2023-02-17] MEDS: GABAPENTIN 100 MG CAPSULE 200 MG PO (20:09)
[2023-02-18] VITALS (10 sets, daily range): BP systolic 114–147; BP diastolic 63–98; PULSE 69–98; RESP 16–20; TEMP 35.7–36.9; O2SAT 93–100
[2023-02-18] MEDS: ALBUTEROL SULFATE NEB 2.5 MG/3 ML INH NEBULIZE ×3 (02:15→14:04)
[2023-02-18] MEDS: IPRATROPIUM BR 0.02% INH SOLN 0.5 MG/2.5 ML VIAL INHALATION ×3 (02:15→14:04)
[2023-02-18 06:49] LABS: Basophils Absolute Auto 0.1 K/mm3 (0.0-0.1); Basophils Percent Auto 0.6 % (0.2-1.2); Eosinophils Absolute Auto 0.8 K/mm3 (0-0.3); Eosinophils Percent Auto 9.3 % (0-4.4); Hematocrit 37.3 % (42.0-52.0); Hemoglobin 11.7 g/dL (14.0-18.0); Immature Granulocyte Absolute 0.05 K/mm3 (0.00-0.031); Immature Granulocyte Percent A 0.6 % (0-0.5); Lymphocytes Absolute Auto 0.83 K/mm3 (0.9-3.2); Lymphocytes Percent Auto 9.7 % (18.3-44.2); Mean Corpuscular HGB Conc 31.4 g/dl (32-36); Mean Corpuscular Hemoglobin 29.8 pg (26-34); Mean Corpuscular Volume 95.2 fl (80-100); Mean Platelet Volume 12.4 fl (7.4-10.4); Monocytes Percent Auto 11.7 % (2.6-8.5); Neutrophils Absolute Auto 5.8 K/mm3 (1.3-6.7); Neutrophils Percent Auto 68.1 % (45.5-73.1); Platelet Count Result 122 k/mm3 (150-375); Red Blood Count 3.92 M/mm3 (4.6-6.20); Red Cell Distribution Width 14.3 % (11.5-14.5); White Blood Count 8.6 K/mm3 (4.5-10.0)
[2023-02-18 07:00] LABS: Anion Gap 3 mmol/L (8-16); Blood Urea Nitrogen 28 mg/dL (9-20); Calcium 8.8 mg/dL (8.4-10.2); Carbon Dioxide 29 mmol/L (22-30); Chloride 101 mmol/L (98-107); Estimated CRCL calculation 51 ml/min; Estimated Glomerular Filt Rate 46; Glucose 98 mg/dL (65-110); Potassium 4.3 mmol/L (3.4-5.0); Sodium 133 mmol/L (137-145)
[2023-02-18] MEDS: ROFLUMILAST 500 MCG TABLET PO (08:14)
[2023-02-18] MEDS: ceFAZolin 1 GM/NS 50 ML 1 GM/50 ML BAG IVPB (08:14)
[2023-02-18] MEDS: PANTOPRAZOLE 40 MG TABLET PO (08:14)
[2023-02-18] MEDS: APIXABAN 5 MG TABLET PO (08:14)
[2023-02-18] MEDS: LORATADINE 10 MG TABLET PO (08:14)
[2023-02-18] MEDS: ASPIRIN 81 MG ENTERIC TABLET PO (08:14)
[2023-02-18] MEDS: MAGNESIUM OXIDE 400 MG TABLET PO (08:14)
[2023-02-18] MEDS: PYRIDOXINE HCL 50 MG TABLET 100 MG PO (08:15)
[2023-02-18] MEDS: FERROUS SULFATE 325 MG TABLET DR BY MOUTH (08:15)
[2023-02-18] MEDS: METOPROLOL SUCCINATE EXT REL 50 MG TABCR PO (08:16)
--- NOTE | 2023-02-18 13:56 | PCPTNOTE ---
Attempted PT evaluation, pt with OT. Will follow.
--- NOTE | 2023-02-18 15:08 | PM.DS ---
DS: Admitting Diagnosis Discharge Date 02/18/23 Admitting Diagnosis Lower extremity redness DS: Discharge Diagnosis Discharge Diagnosis (1) Cellulitis of right leg: Code(s): L03.115 - Cellulitis of right lower limb Status: Acute (2) Venous stasis dermatitis of both lower extremities: Code(s): I87.2 - Venous insufficiency (chronic) (peripheral) Status: Chronic (3) Paroxysmal atrial fibrillation: Code(s): I48.0 - Paroxysmal atrial fibrillation Status: Chronic (4) Obstructive sleep apnea treated with BiPAP: Code(s): G47.33 - Obstructive sleep apnea (adult) (pediatric) Status: Chronic (5) Chronic obstructive pulmonary disease: Qualifiers: COPD type: unspecified COPD Qualified Code(s): J44.9 - Chronic obstructive pulmonary disease, unspecified Code(s): J44.9 - Chronic obstructive pulmonary disease, unspecified Status: Chronic Assessment and Plan: Chest x-ray was clear. CT of the chest showed calcified pulmonary nodules but no acute findings. Continue nebulizer treatments which he uses 4 times a day at home. (6) Chronic back pain: Qualifiers: Back pain location: thoracic back pain Back pain laterality: left Qualified Code(s): M54.6 - Pain in thoracic spine; G89.29 - Other chronic pain Code(s): M54.9 - Dorsalgia, unspecified; G89.29 - Other chronic pain Status: Acute (7) Cirrhosis: Qualifiers: Hepatic cirrhosis type: other cirrhosis Qualified Code(s): K74.69 - Other cirrhosis of liver Code(s): K74.60 - Unspecified cirrhosis of liver Status: Acute (8) CHF (congestive heart failure): Qualifiers: Heart failure type: unspecified Heart failure chronicity: chronic Qualified Code(s): I50.9 - Heart failure, unspecified Code(s): I50.9 - Heart failure, unspecified Status: Chronic (9) Chronic kidney disease: Qualifiers: Chronic kidney disease stage: stage 3 (moderate) Qualified Code(s): N18.3 - Chronic kidney disease, stage 3 (moderate) Code(s): N18.9 - Chronic kidney disease, unspecified Status: Acute DS: Summary Hospital Course Reason for hospitalization: 72yo male with COPD, dCHF, VALENT[place] and pAFib here for lower extremity redness. Please see H&P for details. Hospital Course: Patient presumably has cellulitis of the right leg on admission.? He was started on cefazolin and vancomycin.? CT of the tibia and fibula showed no CT evidence of osteomyelitis.? No fluid collection to suggest abscess but does have diffuse subcutaneous fat stranding.? He has a history of MRSA.? He is on doxycycline chronically.?He has AFib and heart rate remained stable.? He was Toprol for rate control.? He was continued on Eliquis for stroke prophylaxis.? He has COPD. Chest x-ray was clear.? CT of the chest showed calcified pulmonary nodules but no acute findings.? We continued nebulizer treatments. He worked with PT/OT. Patient with a history of cirrhosis and appears well compensated. Patient with history of chronic diastolic CHF and remained well compensated. Baseline creatinine is about 1.3-1.5 range.? He was 1.8 over the summer. Creatinine was 2.0 on admission but trended down to 1.4.?He had less pain with walking and the erythema resolved. MRSA nasal swab positive but suspect he is chronically colonized. Patient overall did well and as able be discharged home on 02/18/2023. Status at Discharge Cognitive/behavioral status at discharge: Stable Time Spent with Patient Time attestation: Total time spent providing and/or coordinating discharge services: 35 minutes Time spent: Greater than 30 minutes Exam Narrative: AF 98.4 147/98 73 20 100% ra Gen - NARD sitting up in chair Chest -distant, clear BS CV -irregularly irregular S1-S2 Abd - Soft, NT/ND, Positive BS Ext -trace pedal edema. Psych - Nml mood and affect Skin - dark red-turner discolorati
== END 2023-02-18 17:38 | disposition home or self-care (01) | DRG 603 ==
LOC: ANHED 14:15 → ANH3MEDSUR 20:22
PROVIDERS: Emergency Medicine; Admitting Provider Internal Medicine; Emergency Provider Emergency Medicine; PCP Emergency Medicine; Visit Provider Internal Medicine
DX: L03.115 Cellulitis of right lower limb (principal); I13.0 Hypertensive heart and chronic kidney disease with heart failure and stage 1 through stage 4 chronic kidney disease, or unspecified chronic kidney disease; I50.32 Chronic diastolic (congestive) heart failure; I87.2 Venous insufficiency (chronic) (peripheral); I48.0 Paroxysmal atrial fibrillation; G47.33 Obstructive sleep apnea (adult) (pediatric); G89.29 Other chronic pain; J44.9 Chronic obstructive pulmonary disease, unspecified; K21.9 Gastro-esophageal reflux disease without esophagitis; K74.60 Unspecified cirrhosis of liver; M54.50 Low back pain, unspecified; N18.30 Chronic kidney disease, stage 3 unspecified; Z86.14 Personal history of Methicillin resistant Staphylococcus aureus infection; Z22.322 Carrier or suspected carrier of Methicillin resistant Staphylococcus aureus; Z79.01 Long term (current) use of anticoagulants; Z79.82 Long term (current) use of aspirin; N40.0 Benign prostatic hyperplasia without lower urinary tract symptoms; Z86.73 Personal history of transient ischemic attack (TIA), and cerebral infarction without residual deficits; Z86.718 Personal history of other venous thrombosis and embolism; Z98.41 Cataract extraction status, right eye; Z98.42 Cataract extraction status, left eye; Z96.643 Presence of artificial hip joint, bilateral; Z87.891 Personal history of nicotine dependence; Z88.0 Allergy status to penicillin
CPT/HCPCS: 36415; 71045; 71250; 73590; 73700; 80048; 80053; 80069; 82565; 83605; 83735; 83880; 85025; 87040; 87081; 94640; 96365; 96375; 96376; 97161; 97166; 99285; A9270; J0690; J2270; J3370

== ENCOUNTER 2023-05-13 13:15 | Outpatient (CLI) | payer MEDICARE, SELFPAY ==
--- NOTE | ~2023-05-13 | US_ITS ---
US arterial ankle brachial ind INDICATION: Peripheral vascular disease TECHNIQUE: Segmental pressures and plethysmographic and Doppler waveforms of the brachial and lower e xtremity arteries were obtained. COMPARISON: None. FINDINGS: Right and left brachial artery pressures of 98 mm Hg and 108 mm Hg, respectively, are concordant (nor mal difference <= 30 mmHg). The right ankle-brachial index (CRESENCIO) is 1.35 (normal >= 0.9-1.0). The right great toe-brachial index (TBI) is 0.92 (normal >= 0.60). The left CRESENCIO is 1.12. The left TBI is 0.92. IMPRESSION: 1. Normal bilateral ankle-brachial indices. Reviewed, dictated and finalized at location B. WORKER
== END 2023-05-13 13:16 | disposition home or self-care (01) ==
PROVIDERS: PCP Emergency Medicine; Visit Provider Emergency Medicine
DX: I73.9 Peripheral vascular disease, unspecified (principal)
CPT/HCPCS: 93922

== ENCOUNTER 2023-05-30 02:31 | Emergency (ER) | payer MEDICARE, SELFPAY ==
[2023-05-30] VITALS (9 sets, daily range): BP systolic 141–152; BP diastolic 70–88; PULSE 80–97; RESP 16–24; TEMP 36.4; O2SAT 94–100
--- NOTE | ~2023-05-30 | XR_ITS ---
XR chest 1V DATE: 05/30/2023 03:53 INDICATION: Shortness of breath TECHNIQUE: AP chest COMPARISON: 02/15/2023 AP chest FINDINGS: Borderline heart size. Aortic arch calcification. Chronic blunting of left costophrenic angle since 02/15/2023. No pulmonary infiltrate or consolidation or pneumothorax is detected. Osteopenia. Osteoarthritic changes at the glenohumeral joints. Dextroscoliosis and degenerative spurring of the thoracic spine. IMPRESSION: No active pulmonary disease Reviewed, dictated and finalized at location A. MS VICE PRESIDENT IMPRESSION: No active pulmonary disease
--- NOTE | ~2023-05-30 | XR_ITS ---
XR hand LT min 3V DATE: 05/30/2023 07:39 INDICATION: Blunt trauma last week. Pain and swelling and second metacarpal area TECHNIQUE: 3 views COMPARISON: None FINDINGS: There is polyarticular osteoarthritis, involving first carpometacarpal and interphalangeal joints primarily. No fracture or dislocation, periosteal reaction or bone destruction is detected. IMPRESSION: Polyarticular osteoarthritis No fracture or dislocation is detected Reviewed, dictated and finalized at location A. RER POULTRY HATCHERY
--- NOTE | 2023-05-30 02:41 | ECG_ITS ---
Measurements Intervals [place] Rate: 85 P: CA: 0 QRS: -63 QRSD: 122 T: 21 QT: 369 QTc: 441 Interpretive Statements ATRIAL FIBRILLATION WITH ABERRANT CONDUCTION OR VENTRICULAR PREMATURE COMPLEXES MARKED LEFT AXIS DEVIATION [QRS AXIS < -30] RIGHT BUNDLE BRANCH BLOCK [120+ ms QRS DURATION, UPRIGHT V1, 40+ ms S IN I/aVL/V4/V5/V6] COMPARED TO ECG 07/21/2022 18:34:22 LEFT-AXIS DEVIATION NOW PRESENT RIGHT BUNDLE-BRANCH BLOCK NOW PRESENT Electronically Signed On 05-30-2023 13:49:56 [employer]ANT SCIENC[employer] PROFESSOR by Aviva Scott M.D.
[2023-05-30 03:07] LABS: Basophils Absolute Auto 0.1 K/mm3 (0.0-0.1); Basophils Percent Auto 0.6 % (0.2-1.2); Eosinophils Absolute Auto 0.6 K/mm3 (0-0.3); Eosinophils Percent Auto 7.3 % (0-4.4); Hematocrit 42.7 % (42.0-52.0); Immature Granulocyte Absolute 0.03 K/mm3 (0.00-0.031); Immature Granulocyte Percent A 0.4 % (0-0.5); Lymphocytes Absolute Auto 0.94 K/mm3 (0.9-3.2); Mean Corpuscular HGB Conc 30.4 g/dl (32-36); Mean Corpuscular Hemoglobin 29.3 pg (26-34); Mean Corpuscular Volume 96.2 fl (80-100); Mean Platelet Volume 12.5 fl (7.4-10.4); Monocytes Absolute Auto 0.9 K/mm3 (0.1-0.6); Monocytes Percent Auto 10.5 % (2.6-8.5); Neutrophils Percent Auto 70.2 % (45.5-73.1); Platelet Count Result 145 k/mm3 (150-375); Red Blood Count 4.44 M/mm3 (4.6-6.20); Red Cell Distribution Width 15.4 % (11.5-14.5); White Blood Count 8.6 K/mm3 (4.5-10.0)
[2023-05-30 03:15] LABS: Alanine Aminotransferase 26 U/L (6-50); Alkaline Phosphatase 127 U/L (38-126); Anion Gap 8 mmol/L (8-16); Aspartate Amino Transferase 30 U/L (17-59); Bilirubin,Total 0.7 mg/dL (0.2-1.3); Blood Urea Nitrogen 33 mg/dL (9-20); Calcium 9.8 mg/dL (8.4-10.2); Carbon Dioxide 27 mmol/L (22-30); Chloride 103 mmol/L (98-107); Estimated CRCL calculation 46 ml/min; Estimated Glomerular Filt Rate 42; Glucose 117 mg/dL (65-110); Potassium 4.3 mmol/L (3.4-5.0); Sodium 138 mmol/L (137-145)
--- NOTE | 2023-05-30 04:51 | ED.SOB ---
HPI - SOB/Dyspnea General Chief Complaint: Shortness of Breath/Dyspnea Stated Complaint: SOB Time Seen by Provider: 05/30/23 04:48 Source: patient Mode of arrival: ambulatory Limitations: no limitations History of Present Illness HPI Narrative: 72 yo with complaint of SOB. He has had a cough productive of yellow/clear sputum, non bloody. This is new as he does not normally have a chronic cough despite having a history of COPD. On 2LPM Nasal cannula supplemental O2 QHS under nightly CPAP and PRN throughout the day. Did a nebulizer treatment prior to arrival and a home covid test which was negative. Denies chest pain. History of atrial fibrillation. No fevers. Trialed Mucinex. Related Data Home Medications Medication Instructions Recorded Confirmed ferrous sulfate 324 mg (65 mg 324 mg PO DAILY 04/05/19 05/05/23 iron) tablet,delayed release omeprazole 40 mg capsule,delayed 40 mg PO DAILY 04/05/19 05/05/23 release tamsulosin 0.4 mg capsule (Flomax) 0.4 mg PO HS 04/05/19 05/05/23 aspirin 81 mg tablet,delayed 81 mg PO DAILY 05/21/19 05/05/23 release cetirizine 10 mg tablet 10 mg PO DAILY 08/04/19 05/05/23 acetaminophen 325 mg capsule 325 mg PO Q6H PRN Pain 03/17/20 05/05/23 diphenhydramine HCl 25 mg capsule 25 mg PO HS PRN Allergy Symptoms 09/12/20 05/05/23 (Benadryl) bumetanide 0.5 mg tablet 0.5 mg PO BID 11/17/20 05/05/23 magnesium oxide 400 mg PO BID 03/04/21 05/05/23 pyridoxine (vitamin B6) 100 mg 100 mg PO DAILY 03/04/21 05/05/23 tablet cholecalciferol (vitamin D3) 25 25 mcg PO DAILY 03/03/23 05/05/23 mcg (1,000 unit) capsule gabapentin 100 mg capsule 200 mg PO BID 05/05/23 05/05/23 triamcinolone acetonide 0.1 % 1 applic topical BID PRN 05/05/23 05/05/23 topical cream Allergies Allergy/AdvReac Type Severity Reaction Status Date / Time levofloxacin Allergy Intermediate Swelling Verified 05/30/23 03:40 of the Eye Penicillins Allergy Intermediate Hives Verified 05/30/23 03:40 scopolamine Allergy Mild Confusion Verified 05/30/23 03:40 tobramycin Allergy Mild Hallucinati Verified 05/30/23 03:40 ng pepper (genus Capsicum) AdvReac Intermediate Nausea and Verified 05/30/23 03:40 Vomiting PMFSH Past Medical History Medical History Benign prostatic hyperplasia Cerebrovascular accident Chronic anticoagulation Chronic diastolic heart failure Chronic kidney disease Chronic obstructive pulmonary disease Cirrhosis Deep venous thrombosis Gastroesophageal reflux disease MRSA (methicillin resistant Staphylococcus aureus) infection The patient had a spinal abscess L1-L2 complicated was septicemia and then had 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 On long-term doxycycline. Obstructive sleep apnea treated with BiPAP Paroxysmal atrial fibrillation Pneumothorax on left Surgical History Surgical History History of back surgery History of bilateral cataract extraction History of bilateral hip replacements History of colonoscopy with polypectomy History of revision of total replacement of hip joint History of tracheostomy Status post excision of lipoma Neck. Family History Family History Mother Family history of cardiovascular disease Family history of coronary artery disease Father Family history of liver disease Sibling Hypertension Cerebrovascular accident Chronic obstructive pulmonary disease Social History Social History Social History: Surrogate medical decision maker: Trinity Keys, spouse. Code status: Full code. Smoking packs per day: 1 Smoking cigarettes per day: 20.0 Years smoked: 7 Smoking pack-years: 7.00 Smoking status: Former smoker Tobacco type: cigarettes Smokeless tobacco user: chewing tobacco Smoking end date: 06/06/81 Alcohol inta
[2023-05-30] MEDS: ALBUTEROL SULFATE NEB 2.5 MG/3 ML INH INHALATION ×2 (06:08→06:09)
[2023-05-30] MEDS: IPRATROPIUM BR 0.02% INH SOLN 0.5 MG/2.5 ML VIAL INHALATION ×2 (06:08→06:09)
[2023-05-30] MEDS: predniSONE 20 MG TABLET 60 MG PO (06:15)
[2023-05-30 06:17] LABS: Influenza A QL RT-PCR Negative (Negative); Influenza B QL RT-PCR Negative (Negative); RSV RNA, RT-PCR Negative (Negative); SARS-CoV-2 RNA PCR Negative (Negative)
[2023-05-30 06:43] LABS: NT Pro B Type Natriuretic Pept 1110 pg/mL (19.9-100)
[2023-05-30] MEDS: AZITHROMYCIN 500 MG/NS 250 ML 500 MG/250 ML BAG 250 MG IVPB (07:41)
== END 2023-05-30 08:52 | disposition home or self-care (01) ==
PROVIDERS: Emergency Provider Student in an Organized Health Care Education/Training Program; PCP Emergency Medicine
DX: J44.1 Chronic obstructive pulmonary disease with (acute) exacerbation (principal); M19.042 Primary osteoarthritis, left hand; I11.0 Hypertensive heart disease with heart failure; I50.32 Chronic diastolic (congestive) heart failure; N18.9 Chronic kidney disease, unspecified; Z99.81 Dependence on supplemental oxygen; Z86.73 Personal history of transient ischemic attack (TIA), and cerebral infarction without residual deficits; Z20.822 Contact with and (suspected) exposure to COVID-19; Z87.891 Personal history of nicotine dependence
CPT/HCPCS: 36415; 71045; 73130; 80053; 83880; 85025; 87637; 93005; 94640; 96365; 99284; J0456; J7512

== ENCOUNTER 2023-09-16 12:42 | Outpatient (CLI) | payer MEDICARE, SELFPAY ==
[2023-09-16 13:00] VITALS: PULSE 82; O2SAT 95
[2023-09-16 13:05] VITALS: PULSE 99; O2SAT 87
[2023-09-16 13:06] VITALS: O2SAT 88
[2023-09-16 13:07] VITALS: PULSE 93; O2SAT 93
[2023-09-16 13:15] VITALS: PULSE 86; O2SAT 95
--- NOTE | 2023-09-16 13:37 | HOMEO2EVAL ---
Evaluation was performed at [facility] Home Oxygen Evaluation RC: Home Oxygen (O2) Evaluation Start: 09/16/23 13:34 Freq: Status: Active Protocol: RPE Activity Type Activity Date Activity User E-sign Co-sign Detail Recorded Client Recorded Date Recorded By Document 09/16/23 13:00 LESLY [email or web address] 09/16/23 13:37 LESLY Document 09/16/23 13:05 LESLY [email or web address] 09/16/23 13:37 LESLY Document 09/16/23 13:06 LESLY [email or web address] 09/16/23 13:37 LESLY Document 09/16/23 13:07 LESLY [email or web address] 09/16/23 13:37 LESLY Document 09/16/23 13:15 LESLY [email or web address] 09/16/23 13:37 LESLY 09/16/23 09/16/23 09/16/23 13:00 13:05 13:06 Home O2 Evaluation [Oxygen] -Test Phase Resting Exercise Exercise -Oxygen Delivery Room Air Room Air Nasal Cannula -Oxygen Flow Rate (L/min) 1 [Pulse Oximetry] -Pulse Oximetry (90-100 %) 95 87 L 88 L [Pulse Rate] -Pulse Rate (60-100 beats/min) 82 99 [Comments] -Home Oxygen Evaluation Comments [Charges] -Evaluation Charges O2 Evaluation by Pulmonary 09/16/23 09/16/23 13:07 13:15 Home O2 Evaluation [Oxygen] -Test Phase Exercise Resting -Oxygen Delivery Nasal Cannula Room Air -Oxygen Flow Rate (L/min) 2 [Pulse Oximetry] -Pulse Oximetry (90-100 %) 93 95 [Pulse Rate] -Pulse Rate (60-100 beats/min) 93 86 [Comments] -Home Oxygen Evaluation Comments Pt requires 2 L home O2 with activity/ exertion. [Charges] -Evaluation Charges
--- NOTE | 2023-09-16 13:39 | PCRCNOTE ---
Home O2 eval faxed to office staff. Pt is requesting a POC, pt disabled, would benefit from ease of use with POC.
== END 2023-09-16 12:43 | disposition home or self-care (01) ==
PROVIDERS: PCP Emergency Medicine; Visit Provider Nurse Practitioner Family
DX: J44.9 Chronic obstructive pulmonary disease, unspecified (principal)
CPT/HCPCS: 94618

== ENCOUNTER 2023-09-21 12:27 | Emergency (ER) | payer MEDICARE, SELFPAY ==
[2023-09-21] VITALS (9 sets, daily range): BP systolic 112–128; BP diastolic 73; PULSE 80–92; RESP 14–22; TEMP 36.7; O2SAT 97–99
--- NOTE | ~2023-09-21 | XR_ITS ---
EXAMINATION: XR chest 1V portable Exam Date/Time: 09/21/2023 13:10 CDT HISTORY: SOB. HX COPD, CHF, AFIB. WEARS HOME O2 Comparison: 05/30/2023. RESULT: Lines, tubes, and devices: None. Lungs and pleura: Mild diffuse reticular opacities. Right hemidiaphragm eventration. Chronic left la teral costophrenic angle blunting. Cardiomediastinal silhouette: Stable. Other: No acute osseous or upper abdominal finding. IMPRESSION: Mild diffuse reticular opacities, may represent initial edema in the appropriate clinical context. Reviewed, dictated and finalized at location K. IMPRESSION: Mild diffuse reticular opacities, may represent initial edema in the appropriat e clinical context.
--- NOTE | 2023-09-21 12:33 | ECG_ITS ---
SEE SCANNED COPY FOR CONFIRMED REPORT MTDD
--- NOTE | 2023-09-21 12:46 | ED.GENADULT ---
HPI - General Adult General Chief complaint: Shortness of Breath/Dyspnea Stated complaint: SOB History of Present Illness HPI narrative: 72-year-old male presenting to the emergency department for evaluation for increased shortness of breath. Patient does have history of atrial fibrillation, COPD and CHF. Patient is normally on 2 L of oxygen by nasal cannula at all times. Patient states and his home he does not walk very far distances. Patient went to the [facility] with his and states he had 1 long walk from the car into the building and another long walk from inside the building to the elevator. Patient states secondary to the exertion from the walk he had onset of worsening shortness of breath and heart palpitations. was concerned so she called EMS. Related Data Home Medications Medication Instructions Recorded Confirmed ferrous sulfate 324 mg (65 mg 324 mg PO DAILY 04/05/19 09/07/23 iron) tablet,delayed release omeprazole 40 mg capsule,delayed 40 mg PO DAILY 04/05/19 09/07/23 release tamsulosin 0.4 mg capsule (Flomax) 0.4 mg PO HS 04/05/19 09/07/23 aspirin 81 mg tablet,delayed 81 mg PO DAILY 05/21/19 09/07/23 release cetirizine 10 mg tablet 10 mg PO DAILY 08/04/19 09/07/23 acetaminophen 325 mg capsule 325 mg PO Q6H PRN Pain 03/17/20 09/07/23 diphenhydramine HCl 25 mg capsule 25 mg PO HS PRN Allergy Symptoms 09/12/20 09/07/23 (Benadryl) bumetanide 0.5 mg tablet 0.5 mg PO BID 11/17/20 09/07/23 magnesium oxide 400 mg PO BID 03/04/21 09/07/23 pyridoxine (vitamin B6) 100 mg 100 mg PO DAILY 03/04/21 09/07/23 tablet cholecalciferol (vitamin D3) 25 25 mcg PO DAILY 03/03/23 09/07/23 mcg (1,000 unit) capsule triamcinolone acetonide 0.1 % 1 applic topical BID PRN 05/05/23 09/07/23 topical cream fluticasone propionate 50 1 spray intranasal DAILY 08/23/23 09/07/23 mcg/actuation nasal spray,suspension (Flonase Allergy Relief) folic acid 400 mcg tablet 0.4 mg PO DAILY 08/23/23 09/07/23 gabapentin 100 mg capsule 300 mg PO BID 09/07/23 09/07/23 Allergies Allergy/AdvReac Type Severity Reaction Status Date / Time levofloxacin Allergy Intermediate Swelling Verified 09/07/23 13:57 of the Eye Penicillins Allergy Intermediate Hives Verified 09/07/23 13:57 scopolamine Allergy Mild Confusion Verified 09/07/23 13:57 tobramycin Allergy Mild Hallucinati Verified 09/07/23 13:57 ng pepper (genus Capsicum) AdvReac Intermediate Nausea and Verified 09/07/23 13:57 Vomiting clindamycin Allergy Intermediate Rash Uncoded 08/23/23 13:39 cats AdvReac Mild Headache Uncoded 08/23/23 13:39 Review of Systems Review of Systems: All systems reviewed & are unremarkable except as noted in HPI and below PMFSH Past Medical History Medical History Benign prostatic hyperplasia Cerebrovascular accident Chronic anticoagulation Chronic diastolic heart failure Chronic kidney disease Chronic obstructive pulmonary disease Cirrhosis Deep venous thrombosis Gastroesophageal reflux disease MRSA (methicillin resistant Staphylococcus aureus) infection The patient had a spinal abscess L1-L2 complicated was septicemia and then had 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 On long-term doxycycline. Obstructive sleep apnea treated with BiPAP Paroxysmal atrial fibrillation Pneumothorax on left Surgical History Surgical History History of back surgery History of bilateral cataract extraction History of bilateral hip replacements History of colonoscopy with polypectomy History of revision of total replacement of hip joint History of tracheostomy Status post excision of lipoma Neck. Family History Family History Mother Family history of cardiovascular disease Family history of coronary artery disease Father Family history of liver disease Sibling Hypertension Ce
[2023-09-21 12:58] LABS: Basophils Absolute Auto 0.1 K/mm3 (0.0-0.1); Basophils Percent Auto 0.7 % (0.2-1.2); Eosinophils Absolute Auto 0.6 K/mm3 (0-0.3); Eosinophils Percent Auto 4.9 % (0-4.4); Hematocrit 40.5 % (42.0-52.0); Hemoglobin 12.3 g/dL (14.0-18.0); Immature Granulocyte Absolute 0.15 K/mm3 (0.00-0.031); Immature Granulocyte Percent A 1.1 % (0-0.5); Lymphocytes Absolute Auto 0.77 K/mm3 (0.9-3.2); Lymphocytes Percent Auto 5.9 % (18.3-44.2); Mean Corpuscular HGB Conc 30.4 g/dl (32-36); Mean Corpuscular Hemoglobin 30.3 pg (26-34); Mean Corpuscular Volume 99.8 fl (80-100); Mean Platelet Volume 12.9 fl (7.4-10.4); Monocytes Absolute Auto 1.2 K/mm3 (0.1-0.6); Monocytes Percent Auto 8.8 % (2.6-8.5); Neutrophils Absolute Auto 10.3 K/mm3 (1.3-6.7); Neutrophils Percent Auto 78.6 % (45.5-73.1); Platelet Count Result 144 k/mm3 (150-375); Red Blood Count 4.06 M/mm3 (4.6-6.20); Red Cell Distribution Width 15.1 % (11.5-14.5); White Blood Count 13.1 K/mm3 (4.5-10.0)
[2023-09-21] MEDS: LEVALBUTEROL NEB 1.25 MG/3 ML INHALATION (13:05)
[2023-09-21 13:08] LABS: Alanine Aminotransferase 19 U/L (6-50); Albumin Level 3.9 g/dL (3.5-5.1); Alkaline Phosphatase 97 U/L (38-126); Anion Gap 8 mmol/L (4-12); Aspartate Amino Transferase 23 U/L (17-59); Bilirubin,Total 0.7 mg/dL (0.2-1.3); Blood Urea Nitrogen 32 mg/dL (9-20); Calcium 9.6 mg/dL (8.4-10.2); Carbon Dioxide 27 mmol/L (22-30); Chloride 106 mmol/L (98-107); Estimated CRCL calculation 48 ml/min; Estimated Glomerular Filt Rate 42; Glucose 127 mg/dL (65-110); Potassium 4.2 mmol/L (3.4-5.0); Sodium 141 mmol/L (137-145)
[2023-09-21 13:14] LABS: INR 1.4; Prothrombin Time 17.7 Seconds (11.1-14.7)
[2023-09-21 13:15] LABS: Partial Thromboplastin Time 33.2 Seconds (22.3-36.8)
[2023-09-21 13:18] LABS: NT Pro B Type Natriuretic Pept 772 pg/mL (19.9-100)
[2023-09-21 13:19] LABS: Influenza A QL RT-PCR Negative (Negative); Influenza B QL RT-PCR Negative (Negative); RSV RNA, RT-PCR Negative (Negative); SARS-CoV-2 RNA PCR Negative (Negative)
== END 2023-09-21 14:43 | disposition home or self-care (01) ==
PROVIDERS: Emergency Provider Emergency Medicine; PCP Emergency Medicine
DX: R06.00 Dyspnea, unspecified (principal); Z20.822 Contact with and (suspected) exposure to COVID-19; J44.9 Chronic obstructive pulmonary disease, unspecified; Z99.81 Dependence on supplemental oxygen; I50.32 Chronic diastolic (congestive) heart failure; N18.9 Chronic kidney disease, unspecified; I48.0 Paroxysmal atrial fibrillation; N40.0 Benign prostatic hyperplasia without lower urinary tract symptoms; G47.33 Obstructive sleep apnea (adult) (pediatric); K74.60 Unspecified cirrhosis of liver; K21.9 Gastro-esophageal reflux disease without esophagitis; Z96.643 Presence of artificial hip joint, bilateral; Z86.73 Personal history of transient ischemic attack (TIA), and cerebral infarction without residual deficits; Z86.718 Personal history of other venous thrombosis and embolism; Z86.14 Personal history of Methicillin resistant Staphylococcus aureus infection; Z87.891 Personal history of nicotine dependence; Z98.42 Cataract extraction status, left eye; Z98.41 Cataract extraction status, right eye; Z79.01 Long term (current) use of anticoagulants; Z79.82 Long term (current) use of aspirin; R94.31 Abnormal electrocardiogram [ECG] [EKG]
CPT/HCPCS: 36415; 71045; 80053; 83880; 85025; 85610; 85730; 87637; 93005; 94640; 99284

== ENCOUNTER 2023-10-11 17:32 | Emergency (ER) | payer MEDICARE, SELFPAY ==
[2023-10-11] VITALS (22 sets, daily range): BP systolic 68–114; BP diastolic 45–86; PULSE 87–117; RESP 15–32; TEMP 36.9; O2SAT 84–100
--- NOTE | ~2023-10-11 | CT_ITS ---
EXAMINATION: CT abd pelvis lumbar wo con DATE: 10/11/2023 20:49 INDICATION: sepsis TECHNIQUE: Computed tomography (CT) of the abdomen and pelvis and lumbar spine was performed without intravenous contrast. Automated exposure control and iterative reconstruction technique were employed . The dose-length product was 1411.05 mGy-cm. COMPARISON: CTPA same date; CT chest 02/15/2023; CT abdomen pelvis 12/24/2019; MR L-spine 12/25/2019. FINDINGS: Lower thorax: Mild bibasilar scar/atelectasis. Coronary artery calcifications. Liver: Normal. Biliary/Gallbladder: Stones in the gallbladder neck. Mild gallbladder distention. No bile duct dilati on. Pancreas: Mild fat stranding about the pancreatic head and body. Spleen: Normal. Adrenals:No mass. Kidneys: No suspicious mass, obstructing stone, or hydronephrosis. Mild bilateral renal atrophy. Excr eted contrast in the collecting systems. GI tract: No small or large bowel dilation. Normal appendix. Diverticulosis without diverticulitis. Mesentery/Peritoneum: No ascites, mass, or free air. Retroperitoneum: No mass. Atherosclerotic abdominal aortic and/or arterial calcifications. Pelvis: Partial obscuration by metal artifact. Prostatomegaly. Soft Tissues: Small uncomplicated fat-containing umbilical hernia Bones (excluding spine): No acute osseous finding. Partially visualized, uncomplicated appearing sarah ateral hip arthroplasties Lumbar spine: 5 nonrib-bearing lumbar-type vertebral bodies. Moderate scoliosis. Status post anterior fusion with i nterbody device at L1-2 which is now fused. Multilevel stable grade 1 degenerative listheses. Multile bertha severe degenerative disc disease. Multilevel severe facet arthropathy. Multilevel severe bilatera l neural foraminal narrowing. Severe central canal narrowing at L4-5 secondary to degenerative change s. No acute osseous fracture. Gas-filled cleft in the anterior and mid T12-L1 disc space and the brid ging anterior osteophyte at the level with 5 mm distraction, a chronic finding. Left psoas atrophy. IMPRESSION: Gallbladder distention with gallstones in the gallbladder neck, may represent distention from fasting , acute cholecystitis, or changes related to the pancreatic findings. Mild peripancreatic inflammatory changes as can be seen with acute interstitial pancreatitis, correla te with hepatic labs. No CT evidence of lumbar osteomyelitis/discitis. Multilevel severe degenerative disc disease and facet arthropathy with multilevel bilateral degenerat marlee neural foraminal narrowing and severe degenerative central canal narrowing at L4-5. Reviewed, dictated and finalized at location K. IMPRESSION: Gallbladder distention with gallstones in the gallbladder neck, may represent d istention from fasting, acute cholecystitis, or changes related to the pancreat ic findings. Mild peripancreatic inflammatory changes as can be seen with acute interstitial pancreatitis, correlate with hepatic labs. No CT evidence of lumbar osteomyelitis/discitis. Multilevel severe degenerative disc disease and facet arthropathy with multilev el bilateral degenerative neural foraminal narrowing and severe degenerative ce ntral canal narrowing at L4-5.
--- NOTE | ~2023-10-11 | XR_ITS ---
Portable chest x-ray Comparison: 10/12/2023 at 1:45 AM Clinical History: Tube placement Findings: Endotracheal tube, NG tube, and right IJ line are in satisfactory positions. There is prob able peripheral chronic interstitial disease in the lungs. Possible minimal left pleural effusion. C ardiomediastinal silhouette is stable. Bones and soft tissues are unremarkable. Impression: Support tubes, as above. Probable chronic interstitial disease in the lungs with possible minimal left pleural effusion. Reviewed, dictated and finalized at location M. Impression: Support tubes, as above. Probable chronic interstitial disease in the lungs with possible minimal left p leural effusion.
--- NOTE | ~2023-10-11 | XR_ITS ---
Supine and upright views of the abdomen Clinical history: NG tube placement Findings: NG tube in satisfactory position. Bowel gas pattern is nonspecific. No evidence for obstruc tion or free air. No abnormal mass lesion or calcification is seen. Osseous structures are intact. Impression: NG tube is in satisfactory position. Reviewed, dictated and finalized at location . Impression: NG tube is in satisfactory position.
--- NOTE | ~2023-10-11 | US_ITS ---
EXAMINATION: US venous doppler [facility] DATE: 10/11/2023 19:55 INDICATION: leg pain . TECHNIQUE: Grayscale images without and with compression and Doppler images of the left lower extremi ty veins were obtained. COMPARISON: 08/12/2022 FINDINGS: The left common femoral vein, profunda (deep) femoral vein, femoral vein, popliteal vein, peroneal v ein, posterior tibial veins, and greater saphenous vein are patent. IMPRESSION: Patent left lower extremity veins. No evidence of deep venous thrombosis. Reviewed, dictated and finalized at location K.
--- NOTE | ~2023-10-11 | XR_ITS ---
EXAMINATION: XR chest 1V portable Exam Date/Time: 10/11/2023 18:10 CDT HISTORY: shortness of breath, HX COPD Comparison: 09/21/2023. RESULT: Lines, tubes, and devices: None. Lungs and pleura: Mild diffuse reticular opacities. Right hemidiaphragm eventration. Chronic left co stophrenic angle blunting. Cardiomediastinal silhouette: Stable. Other: No acute osseous or upper abdominal finding. IMPRESSION: Mild interstitial edema versus senescent change. Reviewed, dictated and finalized at location K.
--- NOTE | ~2023-10-11 | XR_ITS ---
Portable chest x-ray Comparison: 10/11/2023 Clinical History: Line placed Findings: Right IJ line is in satisfactory position. There is peripheral chronic interstitial change in the lungs. Cardiomediastinal silhouette is stable. Bones and soft tissues are unremarkable. Impression: Support line, as above. No pneumothorax. Peripheral chronic interstitial disease. Reviewed, dictated and finalized at location . Impression: Support line, as above. No pneumothorax. Peripheral chronic interstitial disease.
--- NOTE | ~2023-10-11 | CT_ITS ---
EXAMINATION: CTA chest PE protocol DATE: 10/11/2023 18:52 INDICATION: hypotension, shortness of breath TECHNIQUE: Computed tomography angiography (CTA) of the chest was performed with intravenous contrast timed to evaluate the pulmonary arteries. Coronal maximum intensity projection 3D-reconstructions we re created by the technologist. The dose-length product (DLP) was 1034.37 mGy-cm. Automated exposure control and iterative reconstruction technique were employed. COMPARISON: 02/15/2023. FINDINGS: Lung parenchyma and airways: Limited by motion artifact. Minimal dependent atelectasis and scar.. Pleura: Unremarkable. Thoracic inlet, axillae and chest wall: Unremarkable. Thoracic aorta: No significant dilation. No dissection. Mediastinum: Normal. Heart and pericardium: Mild cardiomegaly. Coronary artery calcifications: Heavy. Upper abdomen: Distended gallbladder. Cholelithiasis. Bones: No acute osseous finding. Pulmonary arteries: Study quality: Significant motion artifact prevents adequate evaluation of the se gmental and subsegmental pulmonary arteries. No central pulmonary emboli detected. IMPRESSION: Limited evaluation of the segmental and subsegmental pulmonary arteries. No CT evidence of central ac [place] pulmonary embolus. No acute process detected in the chest. Gallbladder hydrops, likely secondary to fasting. Consider obstruction if there is right upper quadra nt pain and/or abnormal biliary labs. Reviewed, dictated and finalized at location K. IMPRESSION: Limited evaluation of the segmental and subsegmental pulmonary arteries. No CT evidence of central acute pulmonary embolus. No acute process detected in the chest. Gallbladder hydrops, likely secondary to fasting. Consider obstruction if there is right upper quadrant pain and/or abnormal biliary labs.
--- NOTE | 2023-10-11 17:37 | ECG_ITS ---
SEE SCANNED COPY FOR CONFIRMED REPORT MTDD
--- NOTE | 2023-10-11 17:50 | ED.SOB ---
HPI - SOB/Dyspnea General Chief Complaint: Shortness of Breath/Dyspnea <Romelia Buenrostro MD - Last Filed: 10/12/23 20:25> Stated Complaint: low bp <Romelia Buenrostro MD - Last Filed: 10/12/23 20:25> Time Seen by Provider: 10/11/23 17:37 <Romelia Buenrostro MD - Last Filed: 10/12/23 20:25> History of Present Illness HPI Narrative: Patient is a 72-year-old male with history of AFib, CHF, COPD, CKD, DVT, [place] on Bipap at night here with shortness of breath and left leg pain. Patient notes that his shortness of breath began about a week ago, is progressively worsening. He has had increased cough and sputum production. He also notes that yesterday he began having pain in his left leg and a rash. He is not a diabetic. He denies chest pain. noted that today he seemed more tired and he had an episode of vomiting which prompted them to contact EMS and have him brought into the ER. Patient wears 2L NC PRN, has been wearing it on all exertion recently. Of note, patient has history of recurrent MRSA infections including MRSA bacteremia, MRSA in an abscess in his spine and MRSA in his hip replacement. [facility]. He notes his lower back seems to have been more painful over the last 2-3 days. He is on chronic doxycycline for infection suppression. <Romelia Buenrostro MD - Last Filed: 10/12/23 20:25> Related Data Home Medications: Home Medications Medication Instructions Recorded Confirmed ferrous sulfate 324 mg (65 mg 324 mg PO DAILY 04/05/19 10/11/23 iron) tablet,delayed release omeprazole 40 mg capsule,delayed 40 mg PO DAILY 04/05/19 10/11/23 release tamsulosin 0.4 mg capsule (Flomax) 0.4 mg PO HS 04/05/19 10/11/23 aspirin 81 mg tablet,delayed 81 mg PO DAILY 05/21/19 10/11/23 release cetirizine 10 mg tablet 10 mg PO DAILY 08/04/19 10/11/23 acetaminophen 325 mg capsule 325 mg PO Q6H PRN Pain 03/17/20 10/11/23 diphenhydramine HCl 25 mg capsule 25 mg PO HS PRN Allergy Symptoms 09/12/20 10/11/23 (Benadryl) bumetanide 0.5 mg tablet 0.5 mg PO BID 11/17/20 10/11/23 magnesium oxide 400 mg PO BID 03/04/21 10/11/23 pyridoxine (vitamin B6) 100 mg 100 mg PO DAILY 03/04/21 10/11/23 tablet cholecalciferol (vitamin D3) 25 25 mcg PO DAILY 03/03/23 10/11/23 mcg (1,000 unit) capsule triamcinolone acetonide 0.1 % 1 applic topical BID PRN Rash 05/05/23 10/11/23 topical cream fluticasone propionate 50 1 spray intranasal DAILY 08/23/23 10/11/23 mcg/actuation nasal spray,suspension (Flonase Allergy Relief) folic acid 400 mcg tablet 0.4 mg PO DAILY 08/23/23 10/11/23 gabapentin 100 mg capsule 300 mg PO BID 09/07/23 10/11/23 <Romelia Buenrostro MD - Last Filed: 10/12/23 20:25> Allergies/Adverse Reactions: Allergies Allergy/AdvReac Type Severity Reaction Status Date / Time levofloxacin Allergy Intermediate Swelling Verified 10/11/23 18:03 of the Eye Penicillins Allergy Intermediate Hives Verified 10/11/23 18:03 scopolamine Allergy Mild Confusion Verified 10/11/23 18:03 tobramycin Allergy Mild Hallucinati Verified 10/11/23 18:03 ng pepper (genus Capsicum) AdvReac Intermediate Nausea and Verified 10/11/23 18:03 Vomiting clindamycin Allergy Intermediate Rash Uncoded 10/11/23 18:03 cats AdvReac Mild Headache Uncoded 10/11/23 18:03 <Romelia Buenrostro MD - Last Filed: 10/12/23 20:25> Review of Systems Review of Systems: All systems reviewed & are unremarkable except as noted in HPI and below <Romelia Buenrostro MD - Last Filed: 10/12/23 20:25> PMFSH Past Medical History Medical History: Medical History Benign prostatic hyperplasia Cerebrovascular accident Chronic anticoagulation Chronic diastolic heart failure Chronic kidney disease Chronic obstructive pulmonary disease Cirrhosis Deep venous thrombosis Gastroesophageal reflux disease MRSA (methicillin resistant Staphylococcus aureus) infection The patient had a spinal a
[2023-10-11 18:02] LABS: Mean Corpuscular Hemoglobin 30.8 pg (26-34); Mean Corpuscular Volume 99.5 fl (80-100); Mean Platelet Volume 12.8 fl (7.4-10.4); Platelet Count Result 115 k/mm3 (150-375); Red Blood Count 4.22 M/mm3 (4.6-6.20); Red Cell Distribution Width 15.2 % (11.5-14.5); White Blood Count 21.5 K/mm3 (4.5-10.0)
[2023-10-11 18:13] LABS: INR 1.3; Prothrombin Time 17.2 Seconds (11.1-14.7)
[2023-10-11 18:14] LABS: Partial Thromboplastin Time 30.4 Seconds (22.3-36.8)
[2023-10-11] MEDS: SODIUM CHLORIDE 0.9% IV 1,000 ML 999 ML IV CONT ×3 (18:14→20:10)
[2023-10-11 18:17] LABS: Alanine Aminotransferase 20 U/L (6-50); Alkaline Phosphatase 89 U/L (38-126); Anion Gap 8 mmol/L (4-12); Aspartate Amino Transferase 26 U/L (17-59); Bilirubin,Total 1.7 mg/dL (0.2-1.3); Blood Urea Nitrogen 33 mg/dL (9-20); Calcium 9.5 mg/dL (8.4-10.2); Carbon Dioxide 28 mmol/L (22-30); Chloride 102 mmol/L (98-107); Estimated CRCL calculation 38 ml/min; Estimated Glomerular Filt Rate 33; Glucose 141 mg/dL (65-110); Potassium 4.6 mmol/L (3.4-5.0); Sodium 138 mmol/L (137-145)
[2023-10-11 18:22] LABS: Total Cells Counted 100
[2023-10-11 18:23] LABS: Band Neutrophils Percent 12 % (0-6); CRP 2.9 mg/dL (<1.0); Large Platelets Present; Lymphocytes Absolute Manual 0.21 K/mm3 (1.1-4.5); Lymphocytes Percent Manual 1 % (18-44); Monocytes Absolute Manual 1.29 K/mm3 (0.1-0.90); Monocytes Percent Manual 6 % (3-9); Neutrophils Absolute Manual 19.99 K/mm3 (1.3-6.7); Neutrophils Percent Manual 81 % (46-73); Platelet Estimate Slightly Decreased (Adequate)
[2023-10-11 18:24] LABS: Ovalocytes 1+; Schistocytes None Seen
[2023-10-11 18:31] LABS: NT Pro B Type Natriuretic Pept 2260 pg/mL (19.9-100); Troponin I 0.319 ng/mL (0.000-0.034)
[2023-10-11 18:40] LABS: Influenza A QL RT-PCR Negative (Negative); Influenza B QL RT-PCR Negative (Negative); RSV RNA, RT-PCR Negative (Negative); SARS-CoV-2 RNA PCR Negative (Negative)
[2023-10-11] MEDS: CEFEPIME 2 GM/NS 50 ML 2 GM/50 ML BAG IVPB (18:56)
[2023-10-11] MEDS: VANCOMYCIN 1,000 MG/NS 250 ML 1,000 MG/250 ML BAG 250 MG IVPB (19:22)
[2023-10-11 21:00] LABS: Reflex Lactic Acid Yes or No Add Lactic
[2023-10-11 22:04] LABS: Lipase 93 U/L (23-300)
[2023-10-11] MEDS: metroNIDAZOLE 500 MG/ISO 100ML 500 MG/100 ML BAG 100 MG IVPB (22:04)
[2023-10-11 22:16] LABS: Lactic Acid 2.6 mmol/L (0.7-2.0)
[2023-10-11 22:20] LABS: Appearance Urine Cloudy (Clear); Bacteria Urine None Seen /hpf; Bilirubin Urine Negative (Negative); Blood Urine Negative (Negative); Color Urine Yellow (Yellow); Glucose Urine UA Negative (Negative); Hyaline Casts Urine Present /lpf; Ketones Urine Negative (Negative); Leukocyte Esterase Ur 2+ LEU/UL (Negative); Need Manual Microscopic Reviewed; Nitrate Urine Negative (Negative); Protein Urine Trace mg/dL (Negative); RBC Urine 0-2 /hpf (0-2); Specific Grav Ur 1.025 (1.001-1.035); Squamous Epithelial Cell Urine Occasional /hpf (Few); Urobilinogen Urine 0.2 mg/dL (<2.0)
[2023-10-11 22:21] LABS: Add Urine Microscopic? YES
[2023-10-11] MEDS: IPRATROPIUM BR 0.02% INH SOLN 0.5 MG/2.5 ML VIAL INHALATION (22:51)
[2023-10-11] MEDS: LEVALBUTEROL NEB 1.25 MG/3 ML INHALATION (22:51)
[2023-10-11 22:53] LABS: Troponin I 0.421 ng/mL (0.000-0.034)
[2023-10-12] VITALS (11 sets, daily range): BP systolic 78–95; BP diastolic 53–82; PULSE 82–109; RESP 18–25; O2SAT 90–100
[2023-10-12] MEDS: NOREPINEPHRINE 8 MG/D5W 250 ML 8 MG/250 ML BAG 9.38 MG IV CONT (02:25)
[2023-10-12] MEDS: LORazepam INJ (*CRX) 2 MG/ML VIAL IV PUSH (02:51)
[2023-10-12] MEDS: HYDROmorphone HCL INJ (*CRX) 1 MG/ML SYR IV PUSH (02:51)
[2023-10-12] MEDS: MIDAZOLAM 100MG/NS 100ML(*CRX) 100 MG/100 ML BAG IV CONT (02:55)
[2023-10-12] MEDS: FENTANYL 2,500MCG/NS250ML(*CRX 2,500 MCG/250 ML BAG IV CONT (02:58)
[2023-10-12] MEDS: RAPID SEQUENCE INTUBATION KIT 1 EACH (03:01)
--- NOTE | 2023-10-12 03:01 | PC.NURSE ---
Patient having increased work of breathing upon ambulance arrival. Patient given 20 mcg Etomidate at 0242 and 100 mg Rocuronium at 0242. Intubated by Dr. Echevarria at 0245. ETT 7.5 25 at the lip with good color change. Patient has 16 FR umaña catheter placed at 0255, OG [address] at 0255. XRAY at bed side to confirm placement of ETT and OG at 0300. [facility] present waiting to transfer patient.
== END 2023-10-12 03:43 | disposition short-term general hospital (02) ==
PROVIDERS: Emergency Provider Student in an Organized Health Care Education/Training Program; PCP Emergency Medicine
DX: A41.9 Sepsis, unspecified organism (principal); D72.829 Elevated white blood cell count, unspecified; R79.89 Other specified abnormal findings of blood chemistry; M79.605 Pain in left leg; K80.20 Calculus of gallbladder without cholecystitis without obstruction; Z20.822 Contact with and (suspected) exposure to COVID-19; I48.0 Paroxysmal atrial fibrillation; J44.9 Chronic obstructive pulmonary disease, unspecified; I50.32 Chronic diastolic (congestive) heart failure; K74.60 Unspecified cirrhosis of liver; N18.9 Chronic kidney disease, unspecified; N40.0 Benign prostatic hyperplasia without lower urinary tract symptoms; G47.33 Obstructive sleep apnea (adult) (pediatric); K21.9 Gastro-esophageal reflux disease without esophagitis; Z96.643 Presence of artificial hip joint, bilateral; Z86.718 Personal history of other venous thrombosis and embolism; Z87.891 Personal history of nicotine dependence; Z86.14 Personal history of Methicillin resistant Staphylococcus aureus infection; Z98.42 Cataract extraction status, left eye; Z98.41 Cataract extraction status, right eye; Z79.82 Long term (current) use of aspirin; Z79.01 Long term (current) use of anticoagulants; R94.31 Abnormal electrocardiogram [ECG] [EKG]
CPT/HCPCS: 31500; 36415; 36556; 71045; 71275; 72131; 74176; 80053; 81001; 83605; 83690; 83880; 84484; 85025; 85610; 85730; 86140; 87040; 87086; 87181; 87637; 93005; 93971; 94640; 96365; 96367; 96368; 96375; 99285; C1751; J0692; J1170; J1836; J2060; J2250; J3010; J3370; J7030; Q9967

== ENCOUNTER 2023-11-04 02:17 | Inpatient (IN) | payer MEDICARE, SELFPAY ==
[2023-11-04] VITALS (14 sets, daily range): BP systolic 122–169; BP diastolic 56–82; PULSE 72–93; RESP 14–23; TEMP 36.3–37.1; O2SAT 92–100; BMI 36.9; BMI 36.3
--- NOTE | 2023-11-04 | ECHO_ITS ---
Patient Info Name: Mason Keys Age: 72 years : 1950 Gender: Male Ht: 71 in Wt: 260 lbs BSA: 2.47 m2 HR: 85 bpm BP: 169 / 73 mmHg Heart Rhythm: Sinus Rhythm Technical Quality: Fair Exam Date: 11/04/2023 10:14 AM Exam Location: Echo Lab Patient Status: Outpatient Admit Date: 11/04/2023 Staff Ordering Physician: Lesa Hurst PA-C Senior Applications Architect: Lilia Hernandez RDCS Attending Provider: Lesa Hurst PA-C Referring Physician: Natali TREVIÑO; Exam Type: CA echo dop color flow w con Study Info Indications - chf exacerbation Complete two-dimensional, color flow and Doppler transthoracic echocardiogram is performed with contrast to opacify the left ventricle and to improve the deliniation of the left ventricle endocardial borders. Contrast/Agitated Saline Contrast/Ag. Saline: Definity Amount: 2.00 ml Administered By: Lilia Hernandez RDCS Existing IV Access: Yes IV Access Condition: patent with no signs of infiltration Summary 1. Technically challenging exam, definity contrast used to improve visualization. 2. LVH with overall good systolic function, hypokinesia is noted of the mid to apical septum and apex. 3. Sclerotic aortic valve which exhibits good leaflet separation. 4. Significant biatrial dilation. 5. Atrial fibrillation. Left Ventricle Left ventricular chamber dimension is normal. Left ventricular systolic function is normal, estimated at 60-65%. The left ventricular diastolic function is grade I diastolic dysfunction. Right Ventricle Right ventricular chamber dimension is normal. Left Atria Left atrial chamber dimension is moderately enlarged. Right Atria Right atrial chamber dimension is severely enlarged. Aortic Valve The aortic valve is trileaflet. There is mild aortic valve sclerosis. Pulmonic Valve The pulmonic valve is not well visualized. Mitral Valve The mitral valve has normal leaflets. There is trace mitral valve regurgitation. Tricuspid Valve The tricuspid valve leaflets are normal. Pericardium/Pleural The pericardium appears normal. Aorta The aortic root size at the sinus of Valsalva is normal. Left Ventricular Outflow Tract Name Value Normal LVOT 2D LVOT Diameter 2.21 cm LVOT Doppler LVOT Peak Gradient 2 mmHg LVOT Mean Gradient 1 mmHg LVOT VTI 10.66 cm LVOT VTI/AV VTI Ratio 0.38 LVOT Stroke Volume 40.83 ml LVOT CO 3.03 l/min LVOT CI 1.23 L/min/m2 Pulmonic Valve Name Value Normal RVOT Doppler RVOT Peak Gradient 2 mmHg PV Doppler PV Peak Gradient 4 mmHg Mitral Valve
--- NOTE | ~2023-11-04 | XR_ITS ---
XR chest 1V portable 11/06/2023 11:11 Indication: Dyspnea Procedure: AP portable chest Comparison: Comparison to multiple prior studies sequentially, with oldest reviewed study dated 12/2023. Findings: Cardiomegaly. Asymmetric left-sided airspace disease. Possible small left effusion. No pneu mothorax. Cardiomegaly. There is atherosclerosis of the aorta. No acute osseous abnormality. Impression: 1: Asymmetric left-sided airspace disease which may represent pneumonia or asymmetric edema. 2: Cardiomegaly. Reviewed, dictated and finalized at location B. Impression: 1: Asymmetric left-sided airspace disease which may represent pneumonia or asym metric edema. 2: Cardiomegaly.
--- NOTE | ~2023-11-04 | XR_ITS ---
Clinical Indication: Shortness of breath AP and lateral views of the chest: Comparison: 10/12/2023 Findings: There is probable mild central congestive change and hazy left basilar airspace disease. Po ssible minimal left pleural effusion.. Cardiomediastinal silhouette is within normal limits. Bones a nd soft tissues are unremarkable. Impression: Probable central congestive change with mild left basilar pulmonary edema/atelectasis. Probable minimal left pleural effusion. Reviewed, dictated and finalized at location . Impression: Probable central congestive change with mild left basilar pulmonary edema/atele ctasis. Probable minimal left pleural effusion.
--- NOTE | ~2023-11-04 | XR_ITS ---
Portable chest x-ray Comparison: 11/06/2023 Clinical History: Pneumonia, leukocytosis Findings: No focal consolidation or right pleural effusion. Possible minimal left pleural effusion. Cardiomediastinal silhouette is stable. Bones and soft tissues are unremarkable. Impression: Possible minimal left pleural effusion, otherwise clear lungs. Reviewed, dictated and finalized at location . Impression: Possible minimal left pleural effusion, otherwise clear lungs.
--- NOTE | 2023-11-04 02:25 | ECG_ITS ---
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 Measurements Intervals [place] Rate: 88 P: 0 ID: 0 QRS: -30 QRSD: 91 T: 62 QT: 303 QTc: 367 Interpretive Statements ATRIAL FIBRILLATION WITH ABERRANT CONDUCTION OR VENTRICULAR PREMATURE COMPLEXES INCOMPLETE RIGHT BUNDLE BRANCH BLOCK CANNOT R/O SEPTAL INFARCT, AGE INDETERMINATE BASELINE ARTIFACT- I, II, III, AVR, AVL, AVF, V1-V2, V4-V6 ABNORMAL ECG No previous ECG available for comparison Electronically Signed On 11-04-2023 08:39:26 CDT by Shane Snowden D.O.
[2023-11-04 02:38] LABS: Basophils Percent Auto 0.4 % (0.2-1.2); Eosinophils Absolute Auto 0.4 K/mm3 (0-0.3); Eosinophils Percent Auto 6.5 % (0-4.4); Hematocrit 33.8 % (42.0-52.0); Hemoglobin 10.5 g/dL (14.0-18.0); Immature Granulocyte Absolute 0.06 K/mm3 (0.00-0.031); Immature Granulocyte Percent A 1.1 % (0-0.5); Immature Platelet Fraction Pct 13.9 % (0.9-11.2); Lymphocytes Absolute Auto 1.06 K/mm3 (0.9-3.2); Lymphocytes Percent Auto 19.2 % (18.3-44.2); Mean Corpuscular HGB Conc 31.1 g/dl (32-36); Mean Corpuscular Hemoglobin 31.5 pg (26-34); Mean Corpuscular Volume 101.5 fl (80-100); Mean Platelet Volume 13.3 fl (7.4-10.4); Monocytes Absolute Auto 0.9 K/mm3 (0.1-0.6); Monocytes Percent Auto 16.1 % (2.6-8.5); Neutrophils Absolute Auto 3.1 K/mm3 (1.3-6.7); Neutrophils Percent Auto 56.7 % (45.5-73.1); Platelet Count Result 155 k/mm3 (150-375); Red Blood Count 3.33 M/mm3 (4.6-6.20); Red Cell Distribution Width 17.5 % (11.5-14.5); White Blood Count 5.5 K/mm3 (4.5-10.0)
[2023-11-04 02:48] LABS: Alanine Aminotransferase 19 U/L (6-50); Albumin Level 3.5 g/dL (3.5-5.1); Alkaline Phosphatase 141 U/L (38-126); Anion Gap 4 mmol/L (4-12); Aspartate Amino Transferase 42 U/L (17-59); Blood Urea Nitrogen 26 mg/dL (9-20); Calcium 9.1 mg/dL (8.4-10.2); Carbon Dioxide 27 mmol/L (22-30); Chloride 108 mmol/L (98-107); Estimated Glomerular Filt Rate 42; Glucose 107 mg/dL (65-110); Sodium 139 mmol/L (137-145)
[2023-11-04 02:49] LABS: INR 1.4; Prothrombin Time 18.1 Seconds (11.1-14.7)
[2023-11-04 02:50] LABS: Partial Thromboplastin Time 38.8 Seconds (22.3-36.8)
[2023-11-04 02:55] LABS: NT Pro B Type Natriuretic Pept 5550 pg/mL (19.9-100); Troponin I < 0.012 ng/mL (0.000-0.034)
[2023-11-04 02:57] LABS: Alveolar/Arterial O2 Gradient 74.6 mmHg; Base Excess ABG -1.6 mEq/l (+/-2.0); Device NASAL CANNULA; Fractional Inspired Oxygen 32 %; HCO3 ABG 23.8 mEq/l (22.0-26.0); Modified Allen's Test Pass; Oxygen Content ABG 14.6 %vol (16.0-22.0); Oxygen Saturation ABG 97.5 % (95.0-100.0); PCO2 ABG 42.9 mmHg (35.0-45.0); PO2 ABG 103.4 mmHg (80.0-100.0); PO2 FiO2 Ratio Arterial Blood 3.23 %; Site Drawn RIGHT RADIAL; Total Hemoglobin 10.6 g/dL (12.0-18.0); pH ABG 7.362 (7.350-7.450)
[2023-11-04 03:11] LABS: Procalcitonin 0.2 ng/mL
[2023-11-04 03:20] LABS: Lactic Acid Reflex 0.9 mmol/L (0.7-2.0)
[2023-11-04 03:22] LABS: Influenza A QL RT-PCR Negative (Negative); Influenza B QL RT-PCR Negative (Negative); RSV RNA, RT-PCR Negative (Negative); SARS-CoV-2 RNA PCR Negative (Negative)
[2023-11-04 04:15] LABS: Appearance Urine Clear (Clear); Bacteria Urine None Seen /hpf; Bilirubin Urine Negative (Negative); Blood Urine Negative (Negative); Color Urine Yellow (Yellow); Glucose Urine UA Negative (Negative); Ketones Urine Negative (Negative); Leukocyte Esterase Ur Trace LEU/UL (Negative); Nitrate Urine Negative (Negative); Non Pathogenic Casts 0-2; Protein Urine Trace mg/dL (Negative); RBC Urine 0-2 /hpf (0-2); Specific Grav Ur 1.014 (1.001-1.035); Squamous Epithelial Cell Urine None Seen /hpf (Few); Urobilinogen Urine 0.2 mg/dL (<2.0)
[2023-11-04 04:16] LABS: Add Urine Microscopic? YES
[2023-11-04] MEDS: HYDROcodone/acetaminophen (*CRX) 5-325 MG TABLET 1 TAB PO (04:32)
--- NOTE | 2023-11-04 04:35 | PM.IMHP ---
H&P: HPI History of Present Illness Date/Time: 11/04/23 04:35 Chief Complaint: sob Narrative: This is a 72-year-old male with past medical history significant for peripheral vascular disease, obstructive sleep apnea on BiPAP, congestive heart failure, COPD/emphysema, paroxysmal atrial fibrillation, chronic kidney disease, GERD, obesity. Patient recently discharged to local [facility] from an outside facility after he was hospitalized for sepsis. Patient was brought to the emergency room due to shortness of breath. In emergency room patient was found to have low oxygen saturation required supplemental oxygen by nasal cannula. Preliminary workup was significant for brain natriuretic peptide up wards 5000, a urinalysis showed WBCs 6-10, a chest x-rays pending official report at this time. History has been obtained mainly from who is at bedside. Patient is been admitted for further evaluation management and treatment. Clinical Indication: Shortness of breath AP and lateral views of the chest: Comparison: 10/12/2023 Findings: There is probable mild central congestive change and hazy left basilar airspace disease. Possible minimal left pleural effusion..? Cardiomediastinal silhouette is within normal limits. Bones and soft tissues are unremarkable. ? Impression: ? Probable central congestive change with mild left basilar pulmonary edema/atelectasis. Probable minimal left pleural effusion. Review of Systems Review of Systems: ROS unobtainable: Yes unobtainable due to mental status (Lethargy) PMF Past Medical History Medical History Benign prostatic hyperplasia Cerebrovascular accident Chronic anticoagulation Chronic diastolic heart failure Chronic kidney disease Chronic obstructive pulmonary disease Cirrhosis Deep venous thrombosis Gastroesophageal reflux disease MRSA (methicillin resistant Staphylococcus aureus) infection The patient had a spinal abscess L1-L2 complicated was septicemia and then had 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 On long-term doxycycline. Obstructive sleep apnea treated with BiPAP Paroxysmal atrial fibrillation Pneumothorax on left Surgical History Surgical History History of back surgery History of bilateral cataract extraction History of bilateral hip replacements History of colonoscopy with polypectomy History of revision of total replacement of hip joint History of tracheostomy Status post excision of lipoma Neck. Family History Family History Mother Family history of cardiovascular disease Family history of coronary artery disease Father Family history of liver disease Sibling Hypertension Cerebrovascular accident Chronic obstructive pulmonary disease Social History Social History Social History: Surrogate medical decision maker: Trinity Keys, spouse. Code status: Full code. Smoking packs per day: 1 Smoking cigarettes per day: 20.0 Years smoked: 7 Smoking pack-years: 7.00 Smoking status: Former smoker Tobacco type: cigarettes Smokeless tobacco user: chewing tobacco Smoking end date: 06/06/81 Alcohol intake: never Substance use: never Substance use type: does not use Do You Feel Safe in your Home?: No Lack of Transportation: No Lack of Food: Never True Current Housing: I Have Housing Concerned About Future Housing: No Difficulty Paying Gas/Electric Bills: No Difficulty Paying for Meds: No Currently Unemployed: No Education: Bachelor's Degree Difficulty w/ Childcare or Family Care: No Living arrangements: with family Additional living arrangements comments: Lives with spouse in [place]. 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
--- NOTE | 2023-11-04 04:44 | ED.GENADULT ---
HPI - General Adult General Chief complaint: Shortness of Breath/Dyspnea Stated complaint: DIFFICULTY IN BREATHING Time Seen by Provider: 11/04/23 02:20 History of Present Illness HPI narrative: a 72-year-old gentleman presents emergency department with chief complaint of shortness of breath. Patient has history of COPD also CHF patient was admitted recently at [facility] after being seen at [facility] found to have sepsis and respiratory failure and was intubated and admitted at that facility. Patient was discharged today to [facility] and upon arrival in [facility] around 3:00 p.m. they had no of medications available and the patient's family had to argue to get breathing treatments for the patient the patient states that he still feels short of breath and reports that he was given 10 mg of Decadron by EMS and a nebulizer treatment. Related Data Home Medications Medication Instructions Recorded Confirmed ferrous sulfate 324 mg (65 mg 324 mg PO DAILY 04/05/19 11/04/23 iron) tablet,delayed release tamsulosin 0.4 mg capsule (Flomax) 0.4 mg PO HS 04/05/19 11/04/23 aspirin 81 mg tablet,delayed 81 mg PO DAILY 05/21/19 11/04/23 release cetirizine 10 mg tablet 10 mg PO DAILY 08/04/19 11/04/23 acetaminophen 325 mg capsule 650 mg PO Q4H PRN Pain 03/17/20 11/04/23 bumetanide 0.5 mg tablet 0.5 mg PO BID 11/17/20 11/04/23 magnesium oxide 400 mg PO BID 03/04/21 11/04/23 pyridoxine (vitamin B6) 100 mg 100 mg PO DAILY 03/04/21 11/04/23 tablet cholecalciferol (vitamin D3) 25 25 mcg PO DAILY 03/03/23 11/04/23 mcg (1,000 unit) capsule folic acid 400 mcg tablet 0.4 mg PO DAILY 08/23/23 11/04/23 Lactobacillus acidophilus 1 tsp PO TID 11/04/23 11/04/23 albuterol sulfate 90 mcg/actuation 2 puff inhalation QID 11/04/23 11/04/23 aerosol inhaler budesonide 160 mcg-glycopyr 9 2 inh inhalation Q12H 11/04/23 11/04/23 mcg-formot 4.8 mcg/actuation HFA inhaler (Breztri Aerosphere) hydroxyzine HCl 25 mg tablet 25 mg PO BID 11/04/23 11/04/23 levalbuterol HCl 1.25 mg/0.5 mL 1.25 mg inhalation Q6H 11/04/23 11/04/23 solution for nebulization losartan 25 mg tablet 25 mg PO DAILY 11/04/23 11/04/23 rifaximin 550 mg tablet 550 mg PO BID 11/04/23 11/04/23 sennosides 8.6 mg tablet 8.6 mg PO BID 11/04/23 11/04/23 venlafaxine 37.5 mg 37.5 mg PO DAILY 11/04/23 11/04/23 capsule,extended release 24 hr Allergies Allergy/AdvReac Type Severity Reaction Status Date / Time levofloxacin Allergy Intermediate Swelling Verified 10/11/23 18:03 of the Eye Penicillins Allergy Intermediate Hives Verified 10/11/23 18:03 scopolamine Allergy Mild Confusion Verified 10/11/23 18:03 tobramycin Allergy Mild Hallucinati Verified 10/11/23 18:03 ng pepper (genus Capsicum) AdvReac Intermediate Nausea and Verified 10/11/23 18:03 Vomiting clindamycin Allergy Intermediate Rash Uncoded 10/11/23 18:03 cats AdvReac Mild Headache Uncoded 10/11/23 18:03 Review of Systems Review of Systems: A 10 system review of systems was completed on the patient and is negative except for what is stated in the HPI. Nursing and ancillary documentation was reviewed. FORMERLY [facility] Past Medical History Medical History Benign prostatic hyperplasia Cerebrovascular accident Chronic anticoagulation Chronic diastolic heart failure Chronic kidney disease Chronic obstructive pulmonary disease Cirrhosis Deep venous thrombosis Gastroesophageal reflux disease MRSA (methicillin resistant Staphylococcus aureus) infection The patient had a spinal abscess L1-L2 complicated was septicemia and then had 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 On long-term doxycycline. Obstructive sleep apnea treated with BiPAP Paroxysmal atrial fibrillation Pneumothorax on left Surgical History Surgical History History of back surgery Hist
[2023-11-04] MEDS: FUROSEMIDE INJ 40 MG/4 ML VIAL IV PUSH ×3 (05:20→20:30)
--- NOTE | 2023-11-04 06:20 | ADMGEN ---
This patient, Mason Keys, was admitted to 3 [facility] Surg Room 320-01. Patient/family oriented to hospital policies and general routines including ID bracelet, bed and alarms, visiting hours, pain management, procedures, bathroom and other care routines, personal items, smoking policy, room service/diet, and visiting hours. Information on how to activate the Rapid Response Team has been discussed. Patient/Family are encouraged to report perceived risks to care and to ask questions if they do not understand what they are told or what they should do.
[2023-11-04 07:55] LABS: Troponin I < 0.012 ng/mL (0.000-0.034)
--- NOTE | 2023-11-04 08:47 | PM.IMPN ---
Progress Note: A&P Assessment and Plan (1) Lethargic: Code(s): R53.83 - Other fatigue Status: Acute Assessment and Plan: On assessment patient is AOx4, but continues to fall asleep throughout exam. Per RN patient has been asleep for a while, but was not on his CPAP as the setting are unknown. ABG ordered. - ABG 11/03 at 0245: 7.362/ 42.9/ 103.4/ 23.8 - ABG 11/03 at 1314: 7.351/ 45.4/ 116.9/ 24.6 - CPAP placed due to downtrending labs - Neuro checks q4 hours Reevaluated patient and he is now awake and alert, able to speak in full sentences and is eating his dinner. He is to wear his CPAP with naps and overnight. (2) Acute and chronic respiratory failure with hypoxia: Code(s): J96.21 - Acute and chronic respiratory failure with hypoxia Status: Acute Assessment and Plan: SpO2 on arrival was low 90s at rest and dropped to 86% with ambulation. Room air at baseline. Started on 2L NC in the ED, now 1L NC. - Symptoms: shortness of breath - Monitor Oxygen saturation, Oxygen via NC; wean oxygen as tolerated, keep SpO2 greater than 88% (3) UTI (urinary tract infection): Code(s): N39.0 - Urinary tract infection, site not specified Status: Acute Assessment and Plan: - UA: clear appearance with trace leukocytes and 6-10 WBC - UC obtained on 11/03: Pending - No previous micro to be reviewed - started on Rocephin on 11/03 (4) Chronic diastolic heart failure: Code(s): I50.32 - Chronic diastolic (congestive) heart failure Status: Chronic Assessment and Plan: - Symptoms: shortness of breath - Current medications: - BNP: 5550 - EKG: Afib with RBBB - Chest XR: Probable central congestive change with mild left basilar pulmonary edema/atelectasis.Probable minimal left pleural effusion. - Echo 07/22/22: LVEF 65-70% -Monitor vital signs, I&Os, BUN/creatinine, daily weights, neuro status and patient is a fall risk - Monitor serum electrolytes, Keep serum Potassium>4 and serum Magnesium>2 and CBC - Obtain an Echocardiogram - Lasix 40 mg IV q12H - Supportive treatment Tyl and ibu prn Nebs prn (5) Chronic obstructive pulmonary disease: Qualifiers: COPD type: unspecified COPD Qualified Code(s): J44.9 - Chronic obstructive pulmonary disease, unspecified Code(s): J44.9 - Chronic obstructive pulmonary disease, unspecified Status: Chronic Assessment and Plan: Monitor vital signs, I&Os, neuro status and patient is a fall risk Monitor serum electrolytes, cultures and CBC Monitor Oxygen saturation, Oxygen via NC; wean oxygen as tolerated, keep SpO2 greater than 88% Prednisone 60 mg daily (6) VALENTINA (obstructive sleep apnea): Code(s): G47.33 - Obstructive sleep apnea (adult) (pediatric) Status: Acute Assessment and Plan: Continue CPAP. (7) Paroxysmal atrial fibrillation: Code(s): I48.0 - Paroxysmal atrial fibrillation Status: Chronic Assessment and Plan: Chronic, rate controlled. - EKG: Afib with RBBB - Current home medication: metoprolol 50 mg daily, eliquis 5 mg BID - Monitor Time Spent With Patient Time with patient: 25 - 35 minutes Subjective Date/time seen: 11/04/23 08:47 Interval history: 72 year old male with past medical history of afib on anticoagulation, COPD, CHF, and VALENTINA presents to the hospital for shortness of breath. Patient is sleeping in bed with nasal canula in place. He is arousable to voice but remains lethargic throughout exam. He is AOxx3 (person, place, year) and denies shortness of breath, however no further questions were answered after that. An ABG was performed and showed decline since this morning. ABG 11/03 at 1314: 7.351/ 45.4/ 116.9/ 24.6. Patient placed on CPAP at that time. Neurochecks q4 hours. 1345: Returned to patient room to reevaluate. He is awake and alert speaking with the special services supervisor while eating when I entered the room. He endorses mild shortness of breath, but is able
[2023-11-04] MEDS: ACETAMINOPHEN 325 MG TABLET 650 MG PO ×2 (09:02→17:00)
[2023-11-04] MEDS: predniSONE 20 MG TABLET 60 MG PO (09:05)
[2023-11-04] MEDS: PERFLUTREN LIPID MICROSPHERES 1.5 ML VIAL DILUTED TO 10 ML TOTAL VOLUME IV PUSH (10:40)
--- NOTE | 2023-11-04 11:05 | IVDEFINITY ---
Prior to administration of IV Definity the patient was educated on the risks and benefits of the imaging enhancing agent including potential adverse side effects. The patient verbalized understanding. Allergies were verified. No exclusion criteria were identified and at least one of the following inclusion criteria were met: 1) physician request, 2) patient technically difficult to image (per the [place] [employer] guidelines of two or more segments not discernable within the apical view), or 3) questionable left ventricular function. ?
[2023-11-04] MEDS: ALBUTEROL SULFATE (*SP) AEROSOL 1 PUFF 2 PUFF INHALATION ×2 (12:04→15:52)
[2023-11-04] MEDS: FERROUS SULFATE 325 MG TABLET DR BY MOUTH (12:18)
[2023-11-04] MEDS: POTASSIUM CHLORIDE 20 MEQ ER TABLET PO (12:18)
[2023-11-04] MEDS: PYRIDOXINE HCL 50 MG TABLET 100 MG PO (12:18)
[2023-11-04] MEDS: METOPROLOL SUCCINATE EXT REL 50 MG TABCR PO (12:18)
[2023-11-04] MEDS: SPIRONOLACTONE 12.5 MG TABLET PO (12:18)
[2023-11-04] MEDS: APIXABAN 5 MG TABLET PO ×2 (12:18→17:00)
[2023-11-04] MEDS: LORATADINE 10 MG TABLET PO (12:18)
[2023-11-04] MEDS: ASPIRIN 81 MG ENTERIC TABLET PO (12:18)
[2023-11-04] MEDS: PANTOPRAZOLE 40 MG TABLET PO (12:19)
[2023-11-04] MEDS: CHOLECALCIFEROL 1,000 UNITS TABLET 1000 UNITS PO (12:19)
[2023-11-04] MEDS: FOLIC ACID 0.4 MG TABLET PO (12:19)
[2023-11-04] MEDS: GABAPENTIN 300 MG CAPSULE PO ×2 (12:19→17:01)
[2023-11-04] MEDS: MAGNESIUM OXIDE 400 MG TABLET PO ×2 (12:19→17:01)
[2023-11-04] MEDS: FLUTICASONE PROPIONATE 0.05% NA SPR 16 GM BTL (*BKC) 1 SPRAY NASAL (12:19)
[2023-11-04 13:20] LABS: Alveolar/Arterial O2 Gradient 29.2 mmHg; Base Excess ABG -1.2 mEq/l (+/-2.0); Fractional Inspired Oxygen 28 %; HCO3 ABG 24.6 mEq/l (22.0-26.0); Oxygen Content ABG 14.8 %vol (16.0-22.0); Oxygen Saturation ABG 98.1 % (95.0-100.0); Oxyhemoglobin 97.7 % THb (90.0-100.0); PCO2 ABG 45.4 mmHg (35.0-45.0); PO2 ABG 116.9 mmHg (80.0-100.0); PO2 FiO2 Ratio Arterial Blood 4.18 %; Total Hemoglobin 10.6 g/dL (12.0-18.0); pH ABG 7.351 (7.350-7.450)
[2023-11-04 13:21] LABS: Device NASAL CANNULA; Site Drawn RIGHT RADIAL
[2023-11-04] MEDS: hydrOXYzine HCL 25 MG TABLET PO (17:01)
[2023-11-04] MEDS: VANCOMYCIN 1,250 MG/NS 250 ML 1,250 MG/250 ML BAG 166.67 MG IVPB ×2 (20:24→20:29)
[2023-11-04] MEDS: TAMSULOSIN HCL 0.4 MG CAPSULE PO (20:28)
[2023-11-04] MEDS: BACLOFEN 10 MG TABLET PO (20:28)
[2023-11-04] MEDS: MORPHINE SULFATE (*CRX) 2 MG/ML INJ IV PUSH (20:30)
[2023-11-05] VITALS (12 sets, daily range): BP systolic 122–139; BP diastolic 71–73; PULSE 56–90; RESP 14–20; TEMP 36.1–36.3; O2SAT 90–100
--- NOTE | 2023-11-05 03:47 | PCRCNOTE ---
refused use of hospital cpap/bipap unit for patient
[2023-11-05 06:16] LABS: Estimated CRCL calculation 37 ml/min; Estimated Glomerular Filt Rate 31; Potassium 4.6 mmol/L (3.4-5.0)
[2023-11-05 06:45] LABS: MRSA (PCR) DETECTED (NOT DETECTE)
[2023-11-05 06:56] LABS: Basophils Percent Auto 0.2 % (0.2-1.2); Hematocrit 32.2 % (42.0-52.0); Hemoglobin 9.9 g/dL (14.0-18.0); Immature Granulocyte Absolute 0.04 K/mm3 (0.00-0.031); Immature Granulocyte Percent A 0.6 % (0-0.5); Immature Platelet Fraction Pct 14.7 % (0.9-11.2); Lymphocytes Absolute Auto 0.57 K/mm3 (0.9-3.2); Lymphocytes Percent Auto 9.2 % (18.3-44.2); Mean Corpuscular HGB Conc 30.7 g/dl (32-36); Mean Corpuscular Hemoglobin 31.2 pg (26-34); Mean Corpuscular Volume 101.6 fl (80-100); Mean Platelet Volume 13.5 fl (7.4-10.4); Monocytes Absolute Auto 0.7 K/mm3 (0.1-0.6); Neutrophils Absolute Auto 4.9 K/mm3 (1.3-6.7); Platelet Count Result 167 k/mm3 (150-375); Red Blood Count 3.17 M/mm3 (4.6-6.20); Red Cell Distribution Width 17.2 % (11.5-14.5); White Blood Count 6.2 K/mm3 (4.5-10.0)
[2023-11-05 07:13] LABS: Alanine Aminotransferase 19 U/L (6-50); Albumin Level 3.4 g/dL (3.5-5.1); Alkaline Phosphatase 136 U/L (38-126); Anion Gap 7 mmol/L (4-12); Aspartate Amino Transferase 24 U/L (17-59); Bilirubin,Total 0.5 mg/dL (0.2-1.3); Blood Urea Nitrogen 33 mg/dL (9-20); Calcium 8.9 mg/dL (8.4-10.2); Carbon Dioxide 27 mmol/L (22-30); Chloride 103 mmol/L (98-107); Estimated CRCL calculation 39 ml/min; Estimated Glomerular Filt Rate 33; Glucose 131 mg/dL (65-110); Potassium 4.6 mmol/L (3.4-5.0); Sodium 137 mmol/L (137-145)
[2023-11-05] MEDS: ALBUTEROL SULFATE (*SP) AEROSOL 1 PUFF 2 PUFF INHALATION ×3 (07:48→20:50)
[2023-11-05] MEDS: PYRIDOXINE HCL 50 MG TABLET 100 MG PO (08:31)
[2023-11-05] MEDS: CHOLECALCIFEROL 1,000 UNITS TABLET 1000 UNITS PO (08:31)
[2023-11-05] MEDS: SPIRONOLACTONE 12.5 MG TABLET PO (08:31)
[2023-11-05] MEDS: LOSARTAN POTASSIUM 25 MG TABLET PO (08:32)
[2023-11-05] MEDS: predniSONE 20 MG TABLET 60 MG PO (08:32)
[2023-11-05] MEDS: GABAPENTIN 300 MG CAPSULE PO ×2 (08:32→17:04)
[2023-11-05] MEDS: LORATADINE 10 MG TABLET PO (08:32)
[2023-11-05] MEDS: FERROUS SULFATE 325 MG TABLET DR BY MOUTH (08:32)
[2023-11-05] MEDS: MAGNESIUM OXIDE 400 MG TABLET PO ×2 (08:32→17:04)
[2023-11-05] MEDS: VENLAFAXINE HCL XR 37.5 MG CAP PO (08:32)
[2023-11-05] MEDS: ASPIRIN 81 MG ENTERIC TABLET PO (08:32)
[2023-11-05] MEDS: FOLIC ACID 0.4 MG TABLET PO (08:32)
[2023-11-05] MEDS: APIXABAN 5 MG TABLET PO ×2 (08:32→17:04)
[2023-11-05] MEDS: PANTOPRAZOLE 40 MG TABLET PO (08:33)
[2023-11-05] MEDS: METOPROLOL SUCCINATE EXT REL 50 MG TABCR PO (08:33)
[2023-11-05] MEDS: POTASSIUM CHLORIDE 20 MEQ ER TABLET PO (08:33)
[2023-11-05] MEDS: hydrOXYzine HCL 25 MG TABLET PO ×2 (08:33→17:04)
[2023-11-05] MEDS: FLUTICASONE PROPIONATE 0.05% NA SPR 16 GM BTL (*BKC) 1 SPRAY NASAL (08:36)
--- NOTE | 2023-11-05 08:55 | PM.IMPN ---
Progress Note: A&P Assessment and Plan (1) Lethargic: Code(s): R53.83 - Other fatigue Status: Acute Assessment and Plan: On assessment patient is AOx4, but continues to fall asleep throughout exam. Per RN patient has been asleep for a while, but was not on his CPAP as the setting are unknown. ABG ordered. - ABG 11/03 at 0245: 7.362/ 42.9/ 103.4/ 23.8 - ABG 11/03 at 1314: 7.351/ 45.4/ 116.9/ 24.6 - CPAP placed due to downtrending labs - Neuro checks q4 hours Patient remains awake and alert. He is to wear his CPAP with naps and overnight. (2) Acute and chronic respiratory failure with hypoxia: Code(s): J96.21 - Acute and chronic respiratory failure with hypoxia Status: Acute Assessment and Plan: SpO2 on arrival was low 90s at rest and dropped to 86% with ambulation. Room air at baseline. Started on 2L NC in the ED, now 1L NC. - Symptoms: shortness of breath - Monitor Oxygen saturation, Oxygen via NC; wean oxygen as tolerated, keep SpO2 greater than 88% (3) UTI (urinary tract infection): Code(s): N39.0 - Urinary tract infection, site not specified Status: Acute Assessment and Plan: - UA: clear appearance with trace leukocytes and 6-10 WBC - UC obtained on 11/03: Pending - No previous micro to be reviewed - started on Rocephin on 11/03 (4) Chronic diastolic heart failure: Code(s): I50.32 - Chronic diastolic (congestive) heart failure Status: Chronic Assessment and Plan: - Symptoms: shortness of breath - Current medications: - BNP: 5550 - EKG: Afib with RBBB - Chest XR: Probable central congestive change with mild left basilar pulmonary edema/atelectasis.Probable minimal left pleural effusion. - Echo 07/22/22: LVEF 65-70% -Monitor vital signs, I&Os, BUN/creatinine, daily weights, neuro status and patient is a fall risk - Monitor serum electrolytes, Keep serum Potassium>4 and serum Magnesium>2 and CBC - Obtain an Echocardiogram - Lasix 40 mg IV q12H - Supportive treatment Tyl and ibu prn Nebs prn (5) Chronic obstructive pulmonary disease: Qualifiers: COPD type: unspecified COPD Qualified Code(s): J44.9 - Chronic obstructive pulmonary disease, unspecified Code(s): J44.9 - Chronic obstructive pulmonary disease, unspecified Status: Chronic Assessment and Plan: Monitor vital signs, I&Os, neuro status and patient is a fall risk Monitor serum electrolytes, cultures and CBC Monitor Oxygen saturation, Oxygen via NC; wean oxygen as tolerated, keep SpO2 greater than 88% Prednisone 60 mg daily (6) Paroxysmal atrial fibrillation: Code(s): I48.0 - Paroxysmal atrial fibrillation Status: Chronic Assessment and Plan: - EKG: Afib with RBBB - Current home medication: metoprolol 50 mg daily, eliquis 5 mg BID - Monitor (7) VALENTINA (obstructive sleep apnea): Code(s): G47.33 - Obstructive sleep apnea (adult) (pediatric) Status: Acute Assessment and Plan: On BiPAP at nighttime Subjective Date/time seen: 11/05/23 08:55 Interval history: 72 year old male with past medical history of afib on anticoagulation, COPD, CHF, and VALENTINA presents to the hospital for shortness of breath. Patient is pleasant sitting up in his chair. He continues to endorse shortness of breath and remains on o2 supplementation. He continues to have crackles to the lower lung bases and remains on IV lasix at this time. He had a slight rise in his creatinine on am labs, but remains around baseline. Will continue to monitor. Urine output remains normal. He denies chest pain, palpitations, nausea/vomiting and changes in bowel/bladder. Review of Systems Review of Systems: All systems reviewed & are unremarkable except as noted in HPI and below Exam Narrative: AF HR 81 RR 20 SpO2 100 2LNC BP 1254/72 General: male in no acute respiratory distress who is nontoxic appearing, sitting up in chair HEENT: Normocephalic. Atraumatic. Pupils
[2023-11-05] MEDS: MORPHINE SULFATE (*CRX) 2 MG/ML INJ IV PUSH ×2 (12:34→21:01)
[2023-11-05] MEDS: FUROSEMIDE INJ 40 MG/4 ML VIAL IV PUSH ×2 (14:24→21:02)
[2023-11-05] MEDS: TAMSULOSIN HCL 0.4 MG CAPSULE PO (21:02)
[2023-11-05] MEDS: BACLOFEN 10 MG TABLET PO (21:02)
[2023-11-05] MEDS: VANCOMYCIN 1,500 MG/NS 500 ML 1,500 MG/500 ML BAG 250 MG IVPB (21:02)
[2023-11-06] VITALS (14 sets, daily range): BP systolic 117–148; BP diastolic 67–74; PULSE 67–83; RESP 13–18; TEMP 36.4–36.6; O2SAT 94–100
[2023-11-06] MEDS: ALBUTEROL SULFATE (*SP) AEROSOL 1 PUFF 2 PUFF INHALATION ×4 (02:47→20:39)
[2023-11-06] MEDS: MORPHINE SULFATE (*CRX) 2 MG/ML INJ IV PUSH ×2 (04:12→12:40)
[2023-11-06 05:57] LABS: Basophils Percent Auto 0.3 % (0.2-1.2); Eosinophils Percent Auto 0.2 % (0-4.4); Hematocrit 33.9 % (42.0-52.0); Immature Granulocyte Percent A 1.6 % (0-0.5); Immature Platelet Fraction Pct 16.4 % (0.9-11.2); Lymphocytes Absolute Auto 0.73 K/mm3 (0.9-3.2); Lymphocytes Percent Auto 11.8 % (18.3-44.2); Mean Corpuscular HGB Conc 29.5 g/dl (32-36); Mean Corpuscular Hemoglobin 30.4 pg (26-34); Mean Platelet Volume 12.8 fl (7.4-10.4); Monocytes Absolute Auto 0.8 K/mm3 (0.1-0.6); Monocytes Percent Auto 12.2 % (2.6-8.5); Neutrophils Absolute Auto 4.6 K/mm3 (1.3-6.7); Neutrophils Percent Auto 73.9 % (45.5-73.1); Platelet Count Result 162 k/mm3 (150-375); Red Blood Count 3.29 M/mm3 (4.6-6.20); Red Cell Distribution Width 16.4 % (11.5-14.5); White Blood Count 6.2 K/mm3 (4.5-10.0)
[2023-11-06 06:11] LABS: Alanine Aminotransferase 20 U/L (6-50); Albumin Level 3.4 g/dL (3.5-5.1); Alkaline Phosphatase 126 U/L (38-126); Anion Gap 5 mmol/L (4-12); Aspartate Amino Transferase 24 U/L (17-59); Bilirubin,Total 0.5 mg/dL (0.2-1.3); Blood Urea Nitrogen 40 mg/dL (9-20); Calcium 8.8 mg/dL (8.4-10.2); Carbon Dioxide 31 mmol/L (22-30); Chloride 100 mmol/L (98-107); Estimated CRCL calculation 45 ml/min; Estimated Glomerular Filt Rate 40; Glucose 114 mg/dL (65-110); Potassium 4.2 mmol/L (3.4-5.0); Sodium 136 mmol/L (137-145)
[2023-11-06] MEDS: FUROSEMIDE INJ 40 MG/4 ML VIAL IV PUSH ×2 (06:21→13:12)
--- NOTE | 2023-11-06 07:26 | PM.IMPN ---
Progress Note: A&P Assessment and Plan (1) Lethargic: Code(s): R53.83 - Other fatigue Status: Acute Assessment and Plan: On assessment patient is AOx4, but continues to fall asleep throughout exam. Per RN patient has been asleep for a while, but was not on his CPAP as the setting are unknown. ABG ordered. - ABG 11/03 at 0245: 7.362/ 42.9/ 103.4/ 23.8 - ABG 11/03 at 1314: 7.351/ 45.4/ 116.9/ 24.6 - Neuro checks q4 hours Patient remains awake and alert. AOx3. He is to wear his CPAP with naps and overnight. (2) Acute and chronic respiratory failure with hypoxia: Code(s): J96.21 - Acute and chronic respiratory failure with hypoxia Status: Acute Assessment and Plan: SpO2 on arrival was low 90s at rest and dropped to 86% with ambulation. Room air at baseline. Started on 2L NC in the ED, now 1L NC. - Symptoms: shortness of breath - Monitor Oxygen saturation, Oxygen via NC; wean oxygen as tolerated, keep SpO2 greater than 88% (3) Pneumonia: Code(s): J18.9 - Pneumonia, unspecified organism Status: Acute Assessment and Plan: Continued shortness of breath and crackles on auscultation despite IV lasix. Due to patients recent hospitalizations will start hospital acquired pneumonia treatment. - CXR 11/05: Asymmetric left-sided airspace disease which may represent pneumonia or asymmetric edema.Cardiomegaly. - Risk Factors: recent hospitalizations - started on HAP tx: vancomycin and cefepime on 11/05 - Viral PCR: negative for Flu/COVID/RSV - MRSA positive - O2 supplementation: 2L NC baseline - supportive treatment tyl and ibu prn nebs prn tesslon perles prn - trend labs (4) UTI (urinary tract infection): Code(s): N39.0 - Urinary tract infection, site not specified Status: Acute Assessment and Plan: - UA: clear appearance with trace leukocytes and 6-10 WBC - UC obtained on 11/03: Pending - No previous micro to be reviewed - started on Rocephin on 11/03 (5) Chronic diastolic heart failure: Code(s): I50.32 - Chronic diastolic (congestive) heart failure Status: Chronic Assessment and Plan: - Symptoms: shortness of breath - Current medications: - BNP: 5550 - EKG: Afib with RBBB - Chest XR: Probable central congestive change with mild left basilar pulmonary edema/atelectasis.Probable minimal left pleural effusion. - Echo 07/22/22: LVEF 65-70% -Monitor vital signs, I&Os, BUN/creatinine, daily weights, neuro status and patient is a fall risk - Monitor serum electrolytes, Keep serum Potassium>4 and serum Magnesium>2 and CBC - Obtain an Echocardiogram - Lasix 40 mg IV q12H - Supportive treatment Tyl and ibu prn Nebs prn (6) Chronic obstructive pulmonary disease: Qualifiers: COPD type: unspecified COPD Qualified Code(s): J44.9 - Chronic obstructive pulmonary disease, unspecified Code(s): J44.9 - Chronic obstructive pulmonary disease, unspecified Status: Chronic Assessment and Plan: Monitor vital signs, I&Os, neuro status and patient is a fall risk Monitor serum electrolytes, cultures and CBC Monitor Oxygen saturation, Oxygen via NC; wean oxygen as tolerated, keep SpO2 greater than 88% Prednisone 60 mg daily (7) Paroxysmal atrial fibrillation: Code(s): I48.0 - Paroxysmal atrial fibrillation Status: Chronic Assessment and Plan: - EKG: Afib with RBBB - Current home medication: metoprolol 50 mg daily, eliquis 5 mg BID - Monitor (8) VALENTINA (obstructive sleep apnea): Code(s): G47.33 - Obstructive sleep apnea (adult) (pediatric) Status: Acute Assessment and Plan: On BiPAP at nighttime Subjective Date/time seen: 11/06/23 07:26 Interval history: 72 year old male with past medical history of afib on anticoagulation, COPD, CHF, and VALENTINA presents to the hospital for shortness of breath. Patient is pleasant lying comfortably in bed. He continues to endorse shortness of breath and bailey
[2023-11-06 07:32] LABS: Anisocytosis 1+; Hypochromasia 1+; Platelet Estimate Adequate (Adequate); Schistocytes None Seen; Stomatocytes 1+
[2023-11-06] MEDS: hydrOXYzine HCL 25 MG TABLET PO ×2 (08:39→16:07)
[2023-11-06] MEDS: VENLAFAXINE HCL XR 37.5 MG CAP PO (08:39)
[2023-11-06] MEDS: PYRIDOXINE HCL 50 MG TABLET 100 MG PO (08:39)
[2023-11-06] MEDS: CHOLECALCIFEROL 1,000 UNITS TABLET 1000 UNITS PO (08:39)
[2023-11-06] MEDS: MAGNESIUM OXIDE 400 MG TABLET PO ×2 (08:39→16:07)
[2023-11-06] MEDS: predniSONE 20 MG TABLET 60 MG PO (08:39)
[2023-11-06] MEDS: APIXABAN 5 MG TABLET PO ×2 (08:39→16:07)
[2023-11-06] MEDS: ASPIRIN 81 MG ENTERIC TABLET PO (08:39)
[2023-11-06] MEDS: FOLIC ACID 0.4 MG TABLET PO (08:39)
[2023-11-06] MEDS: SPIRONOLACTONE 12.5 MG TABLET PO (08:39)
[2023-11-06] MEDS: PANTOPRAZOLE 40 MG TABLET PO (08:39)
[2023-11-06] MEDS: LORATADINE 10 MG TABLET PO (08:39)
[2023-11-06] MEDS: METOPROLOL SUCCINATE EXT REL 50 MG TABCR PO (08:39)
[2023-11-06] MEDS: GABAPENTIN 300 MG CAPSULE PO ×2 (08:40→16:07)
[2023-11-06] MEDS: LOSARTAN POTASSIUM 25 MG TABLET PO (08:40)
[2023-11-06] MEDS: POTASSIUM CHLORIDE 20 MEQ ER TABLET PO (08:40)
[2023-11-06] MEDS: FERROUS SULFATE 325 MG TABLET DR BY MOUTH (08:40)
[2023-11-06] MEDS: FLUTICASONE PROPIONATE 0.05% NA SPR 16 GM BTL (*BKC) 1 SPRAY NASAL (08:40)
[2023-11-06 10:47] LABS: Folic Acid 7.3 ng/mL (2.76->20)
[2023-11-06] MEDS: CEFEPIME 1 GM/NS 50 ML 1 GM/50 ML BAG IVPB (14:51)
[2023-11-06 19:26] LABS: Vancomycin Trough 18.2 ug/mL (10.0-20.0)
[2023-11-06] MEDS: VANCOMYCIN 1,500 MG/NS 500 ML 1,500 MG/500 ML BAG 250 MG IVPB (20:50)
[2023-11-06] MEDS: BACLOFEN 10 MG TABLET PO (20:50)
[2023-11-06] MEDS: TAMSULOSIN HCL 0.4 MG CAPSULE PO (20:50)
[2023-11-07] VITALS (14 sets, daily range): BP systolic 107–135; BP diastolic 70–82; PULSE 67–96; RESP 18–20; TEMP 36.5–36.8; O2SAT 94–98
[2023-11-07] MEDS: ALBUTEROL SULFATE (*SP) AEROSOL 1 PUFF 2 PUFF INHALATION ×4 (02:55→20:22)
[2023-11-07] MEDS: SODIUM CHLORIDE 0.9% IV 100 ML 20 ML (03:35)
[2023-11-07] MEDS: MORPHINE SULFATE (*CRX) 2 MG/ML INJ IV PUSH (05:10)
[2023-11-07 06:21] LABS: Basophils Percent Auto 0.5 % (0.2-1.2); Hematocrit 32.7 % (42.0-52.0); Hemoglobin 10.2 g/dL (14.0-18.0); Immature Granulocyte Absolute 0.31 K/mm3 (0.00-0.031); Immature Granulocyte Percent A 3.5 % (0-0.5); Immature Platelet Fraction Pct 17.3 % (0.9-11.2); Lymphocytes Absolute Auto 0.94 K/mm3 (0.9-3.2); Lymphocytes Percent Auto 10.6 % (18.3-44.2); Mean Corpuscular HGB Conc 31.2 g/dl (32-36); Mean Corpuscular Hemoglobin 31.6 pg (26-34); Mean Corpuscular Volume 101.2 fl (80-100); Mean Platelet Volume 13.6 fl (7.4-10.4); Monocytes Percent Auto 11.5 % (2.6-8.5); Neutrophils Absolute Auto 6.6 K/mm3 (1.3-6.7); Neutrophils Percent Auto 73.9 % (45.5-73.1); Platelet Count Result 163 k/mm3 (150-375); Red Blood Count 3.23 M/mm3 (4.6-6.20); Red Cell Distribution Width 15.9 % (11.5-14.5); White Blood Count 8.9 K/mm3 (4.5-10.0)
[2023-11-07 06:38] LABS: Alanine Aminotransferase 28 U/L (6-50); Albumin Level 3.5 g/dL (3.5-5.1); Alkaline Phosphatase 119 U/L (38-126); Anion Gap 4 mmol/L (4-12); Aspartate Amino Transferase 32 U/L (17-59); Bilirubin,Total 0.5 mg/dL (0.2-1.3); Blood Urea Nitrogen 43 mg/dL (9-20); Calcium 8.5 mg/dL (8.4-10.2); Carbon Dioxide 33 mmol/L (22-30); Chloride 95 mmol/L (98-107); Estimated CRCL calculation 48 ml/min; Estimated Glomerular Filt Rate 42; Glucose 129 mg/dL (65-110); Potassium 4.2 mmol/L (3.4-5.0); Sodium 132 mmol/L (137-145)
--- NOTE | 2023-11-07 07:22 | PM.IMPN ---
Progress Note: A&P Assessment and Plan (1) Lethargic: Code(s): R53.83 - Other fatigue Status: Acute Assessment and Plan: On assessment patient is AOx4, but continues to fall asleep throughout exam. Per RN patient has been asleep for a while, but was not on his CPAP as the setting are unknown. ABG ordered. - ABG 11/03 at 0245: 7.362/ 42.9/ 103.4/ 23.8 - ABG 11/03 at 1314: 7.351/ 45.4/ 116.9/ 24.6 - Neuro checks q4 hours Patient remains awake and alert. AOx4. He is to wear his CPAP with naps and overnight. (2) Acute and chronic respiratory failure with hypoxia: Code(s): J96.21 - Acute and chronic respiratory failure with hypoxia Status: Acute Assessment and Plan: SpO2 on arrival was low 90s at rest and dropped to 86% with ambulation. Room air at baseline. Started on 2L NC in the ED, remains on 2L. - Symptoms: shortness of breath - Monitor Oxygen saturation, Oxygen via NC; wean oxygen as tolerated, keep SpO2 greater than 88% (3) Pneumonia: Code(s): J18.9 - Pneumonia, unspecified organism Status: Acute Assessment and Plan: Continued shortness of breath and crackles on auscultation despite IV lasix. Due to patients recent hospitalizations will start hospital acquired pneumonia treatment. - CXR 11/05: Asymmetric left-sided airspace disease which may represent pneumonia or asymmetric edema.Cardiomegaly. - Risk Factors: recent hospitalizations - started on HAP tx: vancomycin and cefepime on 11/05 - Viral PCR: negative for Flu/COVID/RSV - MRSA positive - Sputum culture collected on 11/05: Preliminary results: lower respiratory tract - O2 supplementation: 2L NC baseline - supportive treatment tyl and ibu prn nebs prn tesslon perles prn - trend labs (4) UTI (urinary tract infection): Code(s): N39.0 - Urinary tract infection, site not specified Status: Acute Assessment and Plan: - UA: clear appearance with trace leukocytes and 6-10 WBC - UC obtained on 11/03: Pending - No previous micro to be reviewed - started on Rocephin on 11/03, transitioned to cefepime for hospital acquired pneumonia coverage (5) Chronic diastolic heart failure: Code(s): I50.32 - Chronic diastolic (congestive) heart failure Status: Chronic Assessment and Plan: - Symptoms: shortness of breath - Current medications: - BNP: 5550 - EKG: Afib with RBBB - Chest XR: Probable central congestive change with mild left basilar pulmonary edema/atelectasis.Probable minimal left pleural effusion. - Echo 07/22/22: LVEF 65-70% - Echo 11/04/23: Read pending -Monitor vital signs, I&Os, BUN/creatinine, daily weights, neuro status and patient is a fall risk - Monitor serum electrolytes, Keep serum Potassium>4 and serum Magnesium>2 and CBC - Lasix 40 mg IV q12H - Supportive treatment Tyl and ibu prn Nebs prn (6) Chronic obstructive pulmonary disease: Qualifiers: COPD type: unspecified COPD Qualified Code(s): J44.9 - Chronic obstructive pulmonary disease, unspecified Code(s): J44.9 - Chronic obstructive pulmonary disease, unspecified Status: Chronic Assessment and Plan: Monitor vital signs, I&Os, neuro status and patient is a fall risk Monitor serum electrolytes, cultures and CBC Monitor Oxygen saturation, Oxygen via NC; wean oxygen as tolerated, keep SpO2 greater than 88% Prednisone 60 mg daily started on 11/03 (7) Paroxysmal atrial fibrillation: Code(s): I48.0 - Paroxysmal atrial fibrillation Status: Chronic Assessment and Plan: - EKG: Afib with RBBB - Current home medication: metoprolol 50 mg daily, eliquis 5 mg BID - Monitor (8) VALENTINA (obstructive sleep apnea): Code(s): G47.33 - Obstructive sleep apnea (adult) (pediatric) Status: Acute Assessment and Plan: On BiPAP at nighttime Time Spent With Patient Time with patient: 25 - 35 minutes Subjective Date/time seen: 11/07/23 07:22 Interval history: 72 year
[2023-11-07] MEDS: predniSONE 20 MG TABLET 60 MG PO (09:27)
[2023-11-07] MEDS: MAGNESIUM OXIDE 400 MG TABLET PO ×2 (09:28→16:34)
[2023-11-07] MEDS: ASPIRIN 81 MG ENTERIC TABLET PO (09:28)
[2023-11-07] MEDS: POTASSIUM CHLORIDE 20 MEQ ER TABLET PO (09:28)
[2023-11-07] MEDS: PANTOPRAZOLE 40 MG TABLET PO (09:29)
[2023-11-07] MEDS: VENLAFAXINE HCL XR 37.5 MG CAP PO (09:29)
[2023-11-07] MEDS: METOPROLOL SUCCINATE EXT REL 50 MG TABCR PO (09:29)
[2023-11-07] MEDS: FERROUS SULFATE 325 MG TABLET DR BY MOUTH (09:29)
[2023-11-07] MEDS: hydrOXYzine HCL 25 MG TABLET PO ×2 (09:29→16:34)
[2023-11-07] MEDS: LOSARTAN POTASSIUM 25 MG TABLET PO (09:30)
[2023-11-07] MEDS: PYRIDOXINE HCL 50 MG TABLET 100 MG PO (09:30)
[2023-11-07] MEDS: GABAPENTIN 300 MG CAPSULE PO ×2 (09:30→18:33)
[2023-11-07] MEDS: SPIRONOLACTONE 12.5 MG TABLET PO (09:30)
[2023-11-07] MEDS: LORATADINE 10 MG TABLET PO (09:30)
[2023-11-07] MEDS: FOLIC ACID 0.4 MG TABLET PO (09:30)
[2023-11-07] MEDS: CEFEPIME 1 GM/NS 50 ML 1 GM/50 ML BAG IVPB ×3 (09:31→22:28)
[2023-11-07] MEDS: CHOLECALCIFEROL 1,000 UNITS TABLET 1000 UNITS PO (09:31)
[2023-11-07] MEDS: APIXABAN 5 MG TABLET PO ×2 (09:31→16:34)
[2023-11-07 10:31] LABS: Toxigenic C. Diff NEGATIVE (NEGATIVE)
[2023-11-07] MEDS: ACETAMINOPHEN 325 MG TABLET 650 MG PO (15:06)
[2023-11-07] MEDS: FUROSEMIDE INJ 40 MG/4 ML VIAL IV PUSH ×3 (15:06→20:11)
[2023-11-07] MEDS: FLUTICASONE PROPIONATE 0.05% NA SPR 16 GM BTL (*BKC) 1 SPRAY NASAL (18:33)
[2023-11-07] MEDS: VANCOMYCIN 1,500 MG/NS 500 ML 1,500 MG/500 ML BAG 250 MG IVPB (20:02)
[2023-11-07] MEDS: TAMSULOSIN HCL 0.4 MG CAPSULE PO (20:10)
[2023-11-07] MEDS: BACLOFEN 10 MG TABLET PO (20:10)
[2023-11-07 22:09] LABS: Glucose Point of Care 190 mg/dl (65-105)
[2023-11-08] VITALS (18 sets, daily range): BP systolic 119–154; BP diastolic 72–93; PULSE 69–91; RESP 18–20; TEMP 36.2–36.7; O2SAT 93–100
[2023-11-08] MEDS: ALBUTEROL SULFATE (*SP) AEROSOL 1 PUFF 2 PUFF INHALATION ×4 (01:44→19:26)
[2023-11-08] MEDS: FUROSEMIDE INJ 40 MG/4 ML VIAL IV PUSH (06:27)
[2023-11-08 06:48] LABS: Hematocrit 33.7 % (42.0-52.0); Hemoglobin 10.3 g/dL (14.0-18.0); Mean Corpuscular HGB Conc 30.6 g/dl (32-36); Mean Corpuscular Hemoglobin 30.8 pg (26-34); Mean Corpuscular Volume 100.9 fl (80-100); Mean Platelet Volume 13.4 fl (7.4-10.4); Platelet Count Result 172 k/mm3 (150-375); Red Blood Count 3.34 M/mm3 (4.6-6.20); Red Cell Distribution Width 15.8 % (11.5-14.5); White Blood Count 10.7 K/mm3 (4.5-10.0)
[2023-11-08 07:05] LABS: Alanine Aminotransferase 37 U/L (6-50); Albumin Level 3.2 g/dL (3.5-5.1); Alkaline Phosphatase 108 U/L (38-126); Anion Gap 4 mmol/L (4-12); Aspartate Amino Transferase 42 U/L (17-59); Bilirubin,Total 0.5 mg/dL (0.2-1.3); Blood Urea Nitrogen 47 mg/dL (9-20); Calcium 8.3 mg/dL (8.4-10.2); Carbon Dioxide 33 mmol/L (22-30); Chloride 95 mmol/L (98-107); Estimated CRCL calculation 51 ml/min; Estimated Glomerular Filt Rate 46; Glucose 111 mg/dL (65-110); Potassium 4.4 mmol/L (3.4-5.0); Sodium 132 mmol/L (137-145)
[2023-11-08 07:48] LABS: Lymphocytes Absolute Manual 0.85 K/mm3 (1.1-4.5); Lymphocytes Percent Manual 8 % (18-44); Metamyelocytes Percent 2 %; Monocytes Absolute Manual 1.28 K/mm3 (0.1-0.90); Monocytes Percent Manual 12 % (3-9); Neutrophils Percent Manual 78 % (46-73)
[2023-11-08 07:49] LABS: Hypochromasia 1+; Platelet Estimate Adequate (Adequate)
[2023-11-08 07:50] LABS: Anisocytosis 1+; Schistocytes None Seen
[2023-11-08] MEDS: CEFEPIME 1 GM/NS 50 ML 1 GM/50 ML BAG IVPB ×2 (08:27→21:00)
[2023-11-08] MEDS: ACETAMINOPHEN 325 MG TABLET 650 MG PO (08:28)
[2023-11-08] MEDS: METOPROLOL SUCCINATE EXT REL 50 MG TABCR PO (08:29)
[2023-11-08] MEDS: predniSONE 20 MG TABLET 60 MG PO (08:29)
[2023-11-08] MEDS: PYRIDOXINE HCL 50 MG TABLET 100 MG PO (08:29)
[2023-11-08] MEDS: VENLAFAXINE HCL XR 37.5 MG CAP PO (08:30)
[2023-11-08] MEDS: ASPIRIN 81 MG ENTERIC TABLET PO (08:30)
[2023-11-08] MEDS: MAGNESIUM OXIDE 400 MG TABLET PO ×2 (08:30→17:07)
[2023-11-08] MEDS: GABAPENTIN 300 MG CAPSULE PO ×2 (08:30→17:07)
[2023-11-08] MEDS: FERROUS SULFATE 325 MG TABLET DR BY MOUTH (08:30)
[2023-11-08] MEDS: PANTOPRAZOLE 40 MG TABLET PO (08:31)
[2023-11-08] MEDS: APIXABAN 5 MG TABLET PO ×2 (08:31→17:07)
[2023-11-08] MEDS: LOSARTAN POTASSIUM 25 MG TABLET PO (08:31)
[2023-11-08] MEDS: hydrOXYzine HCL 25 MG TABLET PO ×2 (08:31→17:07)
[2023-11-08] MEDS: FOLIC ACID 0.4 MG TABLET PO (08:31)
[2023-11-08] MEDS: LORATADINE 10 MG TABLET PO (08:31)
[2023-11-08] MEDS: POTASSIUM CHLORIDE 20 MEQ ER TABLET PO (08:32)
[2023-11-08] MEDS: SPIRONOLACTONE 12.5 MG TABLET PO (08:32)
[2023-11-08] MEDS: CHOLECALCIFEROL 1,000 UNITS TABLET 1000 UNITS PO (08:32)
[2023-11-08] MEDS: FLUTICASONE PROPIONATE 0.05% NA SPR 16 GM BTL (*BKC) 1 SPRAY NASAL (08:33)
--- NOTE | 2023-11-08 08:54 | PM.IMPN ---
Progress Note: A&P Assessment and Plan (1) Lethargic: Code(s): R53.83 - Other fatigue Status: Acute Assessment and Plan: On assessment patient is AOx4, but continues to fall asleep throughout exam. Per RN patient has been asleep for a while, but was not on his CPAP as the setting are unknown. ABG ordered. - ABG 11/03 at 0245: 7.362/ 42.9/ 103.4/ 23.8 - ABG 11/03 at 1314: 7.351/ 45.4/ 116.9/ 24.6 - Neuro checks q4 hours Patient remains awake and alert. AOx4. He is to wear his CPAP with naps and overnight. (2) Acute and chronic respiratory failure with hypoxia: Code(s): J96.21 - Acute and chronic respiratory failure with hypoxia Status: Acute Assessment and Plan: SpO2 on arrival was low 90s at rest and dropped to 86% with ambulation. Room air at baseline. Started on 2L NC in the ED, remains on 2L. Discussed with nursing about continuing weaning of the patients O2. - Symptoms: shortness of breath - Monitor Oxygen saturation, Oxygen via NC; wean oxygen as tolerated, keep SpO2 greater than 88% (3) Pneumonia: Code(s): J18.9 - Pneumonia, unspecified organism Status: Acute Assessment and Plan: Continued shortness of breath and crackles on auscultation despite IV lasix. Due to patients recent hospitalizations will start hospital acquired pneumonia treatment. - CXR 11/05: Asymmetric left-sided airspace disease which may represent pneumonia or asymmetric edema.Cardiomegaly. - Risk Factors: recent hospitalizations - started on HAP tx: vancomycin and cefepime on 11/05, transitioned to doxy and will remain on cefepime 11/07 - Viral PCR: negative for Flu/COVID/RSV - MRSA positive - Sputum culture collected on 11/05: Preliminary results: lower respiratory tract - O2 supplementation: 2L NC baseline - supportive treatment tyl and ibu prn nebs prn tesslon perles prn - trend labs (4) UTI (urinary tract infection): Code(s): N39.0 - Urinary tract infection, site not specified Status: Acute Assessment and Plan: - UA: clear appearance with trace leukocytes and 6-10 WBC - UC obtained on 11/03: No growth - No previous micro to be reviewed - Patient remains on cefepime for hospital acquired pneumonia only (5) Chronic diastolic heart failure: Code(s): I50.32 - Chronic diastolic (congestive) heart failure Status: Chronic Assessment and Plan: - Symptoms: shortness of breath - Current medications: - BNP: 5550 - EKG: Afib with RBBB - Chest XR: Probable central congestive change with mild left basilar pulmonary edema/atelectasis.Probable minimal left pleural effusion. - Echo 07/22/22: LVEF 65-70% - Echo 11/04/23: LVEF 60-65% with grade I diastolic dysfunction -Monitor vital signs, I&Os, BUN/creatinine, daily weights, neuro status and patient is a fall risk - Monitor serum electrolytes, Keep serum Potassium>4 and serum Magnesium>2 and CBC - Lasix 40 mg IV q12H - Supportive treatment Tyl and ibu prn Nebs prn (6) Chronic obstructive pulmonary disease: Qualifiers: COPD type: unspecified COPD Qualified Code(s): J44.9 - Chronic obstructive pulmonary disease, unspecified Code(s): J44.9 - Chronic obstructive pulmonary disease, unspecified Status: Chronic Assessment and Plan: Monitor vital signs, I&Os, neuro status and patient is a fall risk Monitor serum electrolytes, cultures and CBC Monitor Oxygen saturation, Oxygen via NC; wean oxygen as tolerated, keep SpO2 greater than 88% Prednisone 60 mg daily started on 11/03 (7) Paroxysmal atrial fibrillation: Code(s): I48.0 - Paroxysmal atrial fibrillation Status: Chronic Assessment and Plan: - EKG: Afib with RBBB - Current home medication: metoprolol 50 mg daily, eliquis 5 mg BID - Monitor (8) VALENTINA (obstructive sleep apnea): Code(s): G47.33 - Obstructive sleep apnea (adult) (pediatric) Status: Acute Assessment and Plan: On BiPAP at nighttime Time Spent
[2023-11-08] MEDS: LIDOCAINE 5% PATCH 1 PATCH TRANSDERM (12:14)
[2023-11-08 12:50] LABS: NT Pro B Type Natriuretic Pept 6250 pg/mL (19.9-100)
[2023-11-08] MEDS: TAMSULOSIN HCL 0.4 MG CAPSULE PO (20:46)
[2023-11-08] MEDS: MORPHINE SULFATE (*CRX) 2 MG/ML INJ IV PUSH (20:46)
[2023-11-08] MEDS: DOXYCYCLINE HYCLATE 100 MG TABLET PO (20:46)
[2023-11-08] MEDS: BACLOFEN 10 MG TABLET PO (20:46)
[2023-11-08] MEDS: SODIUM CHLORIDE 0.9% IV 100 ML 20 ML (21:00)
[2023-11-09] VITALS (15 sets, daily range): BP systolic 120–121; BP diastolic 70–83; PULSE 78–95; RESP 20; TEMP 36.3–37; O2SAT 93–100
[2023-11-09] MEDS: ALBUTEROL SULFATE (*SP) AEROSOL 1 PUFF 2 PUFF INHALATION ×4 (01:38→21:26)
[2023-11-09 05:59] LABS: Hematocrit 34.9 % (42.0-52.0); Hemoglobin 10.9 g/dL (14.0-18.0); Immature Platelet Fraction Pct 20.5 % (0.9-11.2); Mean Corpuscular HGB Conc 31.2 g/dl (32-36); Mean Corpuscular Hemoglobin 31.1 pg (26-34); Mean Corpuscular Volume 99.7 fl (80-100); Mean Platelet Volume 13.6 fl (7.4-10.4); Platelet Count Result 183 k/mm3 (150-375); Red Cell Distribution Width 15.6 % (11.5-14.5); White Blood Count 14.2 K/mm3 (4.5-10.0)
[2023-11-09 06:09] LABS: Alanine Aminotransferase 54 U/L (6-50); Albumin Level 3.3 g/dL (3.5-5.1); Alkaline Phosphatase 110 U/L (38-126); Anion Gap 1 mmol/L (4-12); Aspartate Amino Transferase 47 U/L (17-59); Bilirubin,Total 0.6 mg/dL (0.2-1.3); Blood Urea Nitrogen 47 mg/dL (9-20); Calcium 8.4 mg/dL (8.4-10.2); Carbon Dioxide 38 mmol/L (22-30); Chloride 93 mmol/L (98-107); Estimated CRCL calculation 48 ml/min; Estimated Glomerular Filt Rate 42; Glucose 122 mg/dL (65-110); Potassium 4.3 mmol/L (3.4-5.0); Sodium 132 mmol/L (137-145)
[2023-11-09 06:44] LABS: Band Neutrophils Percent 1 % (0-6); Lymphocytes Absolute Manual 0.99 K/mm3 (1.1-4.5); Metamyelocytes Percent 2 %; Monocytes Absolute Manual 1.56 K/mm3 (0.1-0.90); Monocytes Percent Manual 11 % (3-9); Neutrophils Absolute Manual 11.36 K/mm3 (1.3-6.7); Neutrophils Percent Manual 79 % (46-73); Total Cells Counted 100
[2023-11-09 06:45] LABS: Hypochromasia 1+; Platelet Estimate Adequate (Adequate); Schistocytes None Seen
[2023-11-09 06:46] LABS: Stomatocytes 1+
[2023-11-09] MEDS: FERROUS SULFATE 325 MG TABLET DR BY MOUTH (08:34)
[2023-11-09] MEDS: PYRIDOXINE HCL 50 MG TABLET 100 MG PO (08:34)
[2023-11-09] MEDS: ASPIRIN 81 MG ENTERIC TABLET PO (08:34)
[2023-11-09] MEDS: FOLIC ACID 0.4 MG TABLET PO (08:34)
[2023-11-09] MEDS: VENLAFAXINE HCL XR 37.5 MG CAP PO (08:34)
[2023-11-09] MEDS: POTASSIUM CHLORIDE 20 MEQ ER TABLET PO (08:34)
[2023-11-09] MEDS: APIXABAN 5 MG TABLET PO ×2 (08:34→17:41)
[2023-11-09] MEDS: MAGNESIUM OXIDE 400 MG TABLET PO ×2 (08:34→17:41)
[2023-11-09] MEDS: LOSARTAN POTASSIUM 25 MG TABLET PO (08:34)
[2023-11-09] MEDS: GABAPENTIN 300 MG CAPSULE PO ×2 (08:34→17:41)
[2023-11-09] MEDS: DOXYCYCLINE HYCLATE 100 MG TABLET PO ×2 (08:34→21:12)
[2023-11-09] MEDS: predniSONE 20 MG TABLET 60 MG PO (08:34)
[2023-11-09] MEDS: CHOLECALCIFEROL 1,000 UNITS TABLET 1000 UNITS PO (08:34)
[2023-11-09] MEDS: PANTOPRAZOLE 40 MG TABLET PO (08:34)
[2023-11-09] MEDS: LORATADINE 10 MG TABLET PO (08:34)
[2023-11-09] MEDS: SPIRONOLACTONE 12.5 MG TABLET PO (08:35)
[2023-11-09] MEDS: LIDOCAINE 5% PATCH 1 PATCH TRANSDERM (08:35)
[2023-11-09] MEDS: hydrOXYzine HCL 25 MG TABLET PO ×2 (08:35→17:41)
[2023-11-09] MEDS: CEFEPIME 1 GM/NS 50 ML 1 GM/50 ML BAG IVPB ×2 (08:35→21:12)
[2023-11-09] MEDS: FLUTICASONE PROPIONATE 0.05% NA SPR 16 GM BTL (*BKC) 1 SPRAY NASAL (08:36)
[2023-11-09] MEDS: METOPROLOL SUCCINATE EXT REL 50 MG TABCR PO (08:37)
[2023-11-09] MEDS: FUROSEMIDE 20 MG TABLET PO (08:37)
--- NOTE | 2023-11-09 10:00 | PM.IMPN ---
Progress Note: A&P Assessment and Plan (1) Lethargic: Code(s): R53.83 - Other fatigue Status: Acute Assessment and Plan: On assessment patient is AOx4, but continues to fall asleep throughout exam. Per RN patient has been asleep for a while, but was not on his CPAP as the setting are unknown. ABG ordered. - ABG 11/03 at 0245: 7.362/ 42.9/ 103.4/ 23.8 - ABG 11/03 at 1314: 7.351/ 45.4/ 116.9/ 24.6 - Neuro checks q4 hours Patient remains awake and alert. AOx4. He is to wear his CPAP with naps and overnight. (2) Acute and chronic respiratory failure with hypoxia: Code(s): J96.21 - Acute and chronic respiratory failure with hypoxia Status: Acute Assessment and Plan: SpO2 on arrival was low 90s at rest and dropped to 86% with ambulation. Room air at baseline. Started on 2L NC in the ED, remains on 2L. Discussed with nursing about continuing weaning of the patients O2. - Symptoms: shortness of breath - Monitor Oxygen saturation, Oxygen via NC; wean oxygen as tolerated, keep SpO2 greater than 88% - slowly improving- anticipate discharge to [facility] tomorrow 11/09 (3) Pneumonia: Code(s): J18.9 - Pneumonia, unspecified organism Status: Acute Assessment and Plan: Continued shortness of breath and crackles on auscultation despite IV lasix. Due to patients recent hospitalizations will start hospital acquired pneumonia treatment. - CXR 11/05: Asymmetric left-sided airspace disease which may represent pneumonia or asymmetric edema.Cardiomegaly. - Risk Factors: recent hospitalizations - started on HAP tx: vancomycin and cefepime on 11/05, on doxy and will remain on cefepime 11/07 - Viral PCR: negative for Flu/COVID/RSV - MRSA positive - Sputum culture collected on 11/05: Preliminary results: lower respiratory tract - O2 supplementation: 2L NC baseline - supportive treatment tyl and ibu prn nebs prn tesslon perles prn - trend labs (4) UTI (urinary tract infection): Code(s): N39.0 - Urinary tract infection, site not specified Status: Acute Assessment and Plan: - UA: clear appearance with trace leukocytes and 6-10 WBC - UC obtained on 11/03: No growth - No previous micro to be reviewed - Patient remains on cefepime for hospital acquired pneumonia only (5) Chronic diastolic heart failure: Code(s): I50.32 - Chronic diastolic (congestive) heart failure Status: Chronic Assessment and Plan: - Symptoms: shortness of breath - Current medications: - BNP: 5550 - EKG: Afib with RBBB - Chest XR: Probable central congestive change with mild left basilar pulmonary edema/atelectasis.Probable minimal left pleural effusion. - Echo 07/22/22: LVEF 65-70% - Echo 11/04/23: LVEF 60-65% with grade I diastolic dysfunction -Monitor vital signs, I&Os, BUN/creatinine, daily weights, neuro status and patient is a fall risk - Monitor serum electrolytes, Keep serum Potassium>4 and serum Magnesium>2 and CBC - Lasix 40 mg IV q12H - Supportive treatment Tyl and ibu prn Nebs prn (6) Chronic obstructive pulmonary disease: Qualifiers: COPD type: unspecified COPD Qualified Code(s): J44.9 - Chronic obstructive pulmonary disease, unspecified Code(s): J44.9 - Chronic obstructive pulmonary disease, unspecified Status: Chronic Assessment and Plan: Monitor vital signs, I&Os, neuro status and patient is a fall risk Monitor serum electrolytes, cultures and CBC Monitor Oxygen saturation, Oxygen via NC; wean oxygen as tolerated, keep SpO2 greater than 88% Prednisone 60 mg daily started on 11/03 (7) Paroxysmal atrial fibrillation: Code(s): I48.0 - Paroxysmal atrial fibrillation Status: Chronic Assessment and Plan: - EKG: Afib with RBBB - Current home medication: metoprolol 50 mg daily, eliquis 5 mg BID - Monitor (8) VALENTINA (obstructive sleep apnea): Code(s): G47.33 - Obstructive sleep apnea (adult) (pediatric) Status: Acute A
--- NOTE | 2023-11-09 13:55 | PCOTNOTE ---
Attempted to see Patient. Patient declined, stating he already performed therapy today and no more, come back tomorrow.
[2023-11-09] MEDS: ACETAMINOPHEN 325 MG TABLET 650 MG PO (15:23)
[2023-11-09] MEDS: TAMSULOSIN HCL 0.4 MG CAPSULE PO (21:12)
[2023-11-09] MEDS: BACLOFEN 10 MG TABLET PO (21:12)
[2023-11-10] VITALS (8 sets, daily range): BP systolic 111–133; BP diastolic 67–94; PULSE 77–90; RESP 16–19; TEMP 36.2–36.6; O2SAT 95–100
[2023-11-10 06:14] LABS: Hematocrit 34.7 % (42.0-52.0); Hemoglobin 10.9 g/dL (14.0-18.0); Immature Platelet Fraction Pct 18.3 % (0.9-11.2); Mean Corpuscular HGB Conc 31.4 g/dl (32-36); Mean Corpuscular Hemoglobin 31.6 pg (26-34); Mean Corpuscular Volume 100.6 fl (80-100); Mean Platelet Volume 13.6 fl (7.4-10.4); Platelet Count Result 172 k/mm3 (150-375); Red Blood Count 3.45 M/mm3 (4.6-6.20); Red Cell Distribution Width 15.7 % (11.5-14.5); White Blood Count 18.3 K/mm3 (4.5-10.0)
[2023-11-10 06:31] LABS: Alanine Aminotransferase 53 U/L (6-50); Albumin Level 3.2 g/dL (3.5-5.1); Alkaline Phosphatase 104 U/L (38-126); Anion Gap 3 mmol/L (4-12); Aspartate Amino Transferase 41 U/L (17-59); Bilirubin,Total 0.5 mg/dL (0.2-1.3); Blood Urea Nitrogen 43 mg/dL (9-20); Calcium 8.2 mg/dL (8.4-10.2); Carbon Dioxide 36 mmol/L (22-30); Chloride 92 mmol/L (98-107); Estimated CRCL calculation 51 ml/min; Estimated Glomerular Filt Rate 46; Glucose 121 mg/dL (65-110); Potassium 4.2 mmol/L (3.4-5.0); Sodium 131 mmol/L (137-145)
[2023-11-10] MEDS: ALBUTEROL SULFATE (*SP) AEROSOL 1 PUFF 2 PUFF INHALATION ×2 (07:58→14:23)
--- NOTE | 2023-11-10 08:03 | PM.IMPN ---
Progress Note: A&P Assessment and Plan (1) Lethargic: Code(s): R53.83 - Other fatigue Status: Acute Assessment and Plan: On assessment patient is AOx4, but continues to fall asleep throughout exam. Per RN patient has been asleep for a while, but was not on his CPAP as the setting are unknown. ABG ordered. - ABG 11/03 at 0245: 7.362/ 42.9/ 103.4/ 23.8 - ABG 11/03 at 1314: 7.351/ 45.4/ 116.9/ 24.6 - Neuro checks q4 hours Patient remains awake and alert. AOx4. He is to wear his CPAP with naps and overnight. (2) Acute and chronic respiratory failure with hypoxia: Code(s): J96.21 - Acute and chronic respiratory failure with hypoxia Status: Acute Assessment and Plan: SpO2 on arrival was low 90s at rest and dropped to 86% with ambulation. Room air at baseline. Started on 2L NC in the ED, remains on 2L. Discussed with nursing about continuing weaning of the patients O2. - Symptoms: shortness of breath - Monitor Oxygen saturation, Oxygen via NC; wean oxygen as tolerated, keep SpO2 greater than 88% - slowly improving- anticipate discharge to [facility] tomorrow 11/09 (3) Pneumonia: Code(s): J18.9 - Pneumonia, unspecified organism Status: Acute Assessment and Plan: Continued shortness of breath and crackles on auscultation despite IV lasix. Due to patients recent hospitalizations will start hospital acquired pneumonia treatment. - CXR 11/05: Asymmetric left-sided airspace disease which may represent pneumonia or asymmetric edema.Cardiomegaly. - Risk Factors: recent hospitalizations - started on HAP tx: vancomycin and cefepime on 11/05, on doxy - Viral PCR: negative for Flu/COVID/RSV - MRSA positive - Sputum culture collected on 11/05: no growth - O2 supplementation: 2L NC baseline - supportive treatment tyl and ibu prn nebs prn tesslon perles prn - trend labs (4) UTI (urinary tract infection): Code(s): N39.0 - Urinary tract infection, site not specified Status: Acute Assessment and Plan: - UA: clear appearance with trace leukocytes and 6-10 WBC - UC obtained on 5/31: No growth - No previous micro to be reviewed - Patient remains on cefepime for hospital acquired pneumonia only (5) Chronic diastolic heart failure: Code(s): I50.32 - Chronic diastolic (congestive) heart failure Status: Chronic Assessment and Plan: - Symptoms: shortness of breath - Current medications: - BNP: 5550 - EKG: Afib with RBBB - Chest XR: Probable central congestive change with mild left basilar pulmonary edema/atelectasis.Probable minimal left pleural effusion. - Echo 07/22/22: LVEF 65-70% - Echo 11/04/23: LVEF 60-65% with grade I diastolic dysfunction -Monitor vital signs, I&Os, BUN/creatinine, daily weights, neuro status and patient is a fall risk - Monitor serum electrolytes, Keep serum Potassium>4 and serum Magnesium>2 and CBC - Lasix 40 mg IV q12H - Supportive treatment Tyl and ibu prn Nebs prn (6) Chronic obstructive pulmonary disease: Qualifiers: COPD type: unspecified COPD Qualified Code(s): J44.9 - Chronic obstructive pulmonary disease, unspecified Code(s): J44.9 - Chronic obstructive pulmonary disease, unspecified Status: Chronic Assessment and Plan: Monitor vital signs, I&Os, neuro status and patient is a fall risk Monitor serum electrolytes, cultures and CBC Monitor Oxygen saturation, Oxygen via NC; wean oxygen as tolerated, keep SpO2 greater than 88% Prednisone 60 mg daily started on 11/03 (7) Paroxysmal atrial fibrillation: Code(s): I48.0 - Paroxysmal atrial fibrillation Status: Chronic Assessment and Plan: - EKG: Afib with RBBB - Current home medication: metoprolol 50 mg daily, eliquis 5 mg BID - Monitor (8) VALENTINA (obstructive sleep apnea): Code(s): G47.33 - Obstructive sleep apnea (adult) (pediatric) Status: Acute Assessment and Plan: On BiPAP at nighttime Time Spent With Patien
[2023-11-10 08:18] LABS: Total Cells Counted 100
[2023-11-10 08:19] LABS: Band Neutrophils Percent 1 % (0-6); Hypochromasia 1+; Lymphocytes Absolute Manual 1.46 K/mm3 (1.1-4.5); Lymphocytes Percent Manual 8 % (18-44); Metamyelocytes Percent 1 %; Monocytes Absolute Manual 0.91 K/mm3 (0.1-0.90); Monocytes Percent Manual 5 % (3-9); Myelocytes Percent 3 %; Neutrophils Absolute Manual 15.18 K/mm3 (1.3-6.7); Neutrophils Percent Manual 82 % (46-73); Platelet Estimate Adequate (Adequate)
[2023-11-10 08:20] LABS: Anisocytosis 1+; Schistocytes None Seen; Stomatocytes 1+
[2023-11-10] MEDS: DOXYCYCLINE HYCLATE 100 MG TABLET PO (08:57)
[2023-11-10] MEDS: FOLIC ACID 0.4 MG TABLET PO (08:57)
[2023-11-10] MEDS: hydrOXYzine HCL 25 MG TABLET PO (08:57)
[2023-11-10] MEDS: CEFEPIME 1 GM/NS 50 ML 1 GM/50 ML BAG IVPB (08:57)
[2023-11-10] MEDS: APIXABAN 5 MG TABLET PO (08:57)
[2023-11-10] MEDS: PYRIDOXINE HCL 50 MG TABLET 100 MG PO (08:57)
[2023-11-10] MEDS: FERROUS SULFATE 325 MG TABLET DR BY MOUTH (08:57)
[2023-11-10] MEDS: SPIRONOLACTONE 12.5 MG TABLET PO (08:57)
[2023-11-10] MEDS: PANTOPRAZOLE 40 MG TABLET PO (08:57)
[2023-11-10] MEDS: LORATADINE 10 MG TABLET PO (08:57)
[2023-11-10] MEDS: ASPIRIN 81 MG ENTERIC TABLET PO (08:57)
[2023-11-10] MEDS: GABAPENTIN 300 MG CAPSULE PO (08:57)
[2023-11-10] MEDS: MAGNESIUM OXIDE 400 MG TABLET PO (08:57)
[2023-11-10] MEDS: predniSONE 20 MG TABLET 60 MG PO (08:58)
[2023-11-10] MEDS: POTASSIUM CHLORIDE 20 MEQ ER TABLET PO (08:58)
[2023-11-10] MEDS: FLUTICASONE PROPIONATE 0.05% NA SPR 16 GM BTL (*BKC) 1 SPRAY NASAL (08:58)
[2023-11-10] MEDS: FUROSEMIDE 20 MG TABLET PO (08:58)
[2023-11-10] MEDS: LOSARTAN POTASSIUM 25 MG TABLET PO (08:58)
[2023-11-10] MEDS: VENLAFAXINE HCL XR 37.5 MG CAP PO (08:58)
[2023-11-10] MEDS: CHOLECALCIFEROL 1,000 UNITS TABLET 1000 UNITS PO (08:58)
[2023-11-10] MEDS: METOPROLOL SUCCINATE EXT REL 50 MG TABCR PO (09:00)
[2023-11-10] MEDS: LIDOCAINE 5% PATCH 1 PATCH TRANSDERM (09:10)
--- NOTE | 2023-11-10 14:04 | PM.DS ---
DS: Admitting Diagnosis Discharge Date 11/09 Admitting Diagnosis sob DS: Discharge Diagnosis Discharge Diagnosis (1) Lethargic: Code(s): R53.83 - Other fatigue Status: Acute Assessment and Plan: On assessment patient is AOx4, but continues to fall asleep throughout exam. Per RN patient has been asleep for a while, but was not on his CPAP as the setting are unknown. ABG ordered. - ABG 11/03 at 0245: 7.362/ 42.9/ 103.4/ 23.8 - ABG 11/03 at 1314: 7.351/ 45.4/ 116.9/ 24.6 - Neuro checks q4 hours Patient remains awake and alert. AOx4. He is to wear his CPAP with naps and overnight. (2) Acute and chronic respiratory failure with hypoxia: Code(s): J96.21 - Acute and chronic respiratory failure with hypoxia Status: Acute Assessment and Plan: SpO2 on arrival was low 90s at rest and dropped to 86% with ambulation. Room air at baseline. Started on 2L NC in the ED, remains on 2L. Discussed with nursing about continuing weaning of the patients O2. - Symptoms: shortness of breath - Monitor Oxygen saturation, Oxygen via NC; wean oxygen as tolerated, keep SpO2 greater than 88% - slowly improving- anticipate discharge to [facility] tomorrow 11/09 (3) Pneumonia: Code(s): J18.9 - Pneumonia, unspecified organism Status: Acute Assessment and Plan: Continued shortness of breath and crackles on auscultation despite IV lasix. Due to patients recent hospitalizations will start hospital acquired pneumonia treatment. - CXR 11/05: Asymmetric left-sided airspace disease which may represent pneumonia or asymmetric edema.Cardiomegaly. - Risk Factors: recent hospitalizations - started on HAP tx: vancomycin and cefepime on 11/05, on doxy - Viral PCR: negative for Flu/COVID/RSV - MRSA positive - Sputum culture collected on 11/05: no growth - O2 supplementation: 2L NC baseline - supportive treatment tyl and ibu prn nebs prn tesslon perles prn - trend labs (4) UTI (urinary tract infection): Code(s): N39.0 - Urinary tract infection, site not specified Status: Acute Assessment and Plan: - UA: clear appearance with trace leukocytes and 6-10 WBC - UC obtained on 11/03: No growth - No previous micro to be reviewed - Patient remains on cefepime for hospital acquired pneumonia only (5) Chronic diastolic heart failure: Code(s): I50.32 - Chronic diastolic (congestive) heart failure Status: Chronic Assessment and Plan: - Symptoms: shortness of breath - Current medications: - BNP: 5550 - EKG: Afib with RBBB - Chest XR: Probable central congestive change with mild left basilar pulmonary edema/atelectasis.Probable minimal left pleural effusion. - Echo 07/22/22: LVEF 65-70% - Echo 11/04/23: LVEF 60-65% with grade I diastolic dysfunction -Monitor vital signs, I&Os, BUN/creatinine, daily weights, neuro status and patient is a fall risk - Monitor serum electrolytes, Keep serum Potassium>4 and serum Magnesium>2 and CBC - Lasix 40 mg IV q12H - Supportive treatment Tyl and ibu prn Nebs prn (6) Chronic obstructive pulmonary disease: Qualifiers: COPD type: unspecified COPD Qualified Code(s): J44.9 - Chronic obstructive pulmonary disease, unspecified Code(s): J44.9 - Chronic obstructive pulmonary disease, unspecified Status: Chronic Assessment and Plan: Monitor vital signs, I&Os, neuro status and patient is a fall risk Monitor serum electrolytes, cultures and CBC Monitor Oxygen saturation, Oxygen via NC; wean oxygen as tolerated, keep SpO2 greater than 88% Prednisone 60 mg daily started on 11/03 (7) Paroxysmal atrial fibrillation: Code(s): I48.0 - Paroxysmal atrial fibrillation Status: Chronic Assessment and Plan: - EKG: Afib with RBBB - Current home medication: metoprolol 50 mg daily, eliquis 5 mg BID - Monitor (8) VALENTINA (obstructive sleep apnea): Code(s): G47.33 - Obstructive sleep apnea (adult) (pediatric) Status: Ac
== END 2023-11-10 18:00 | DRG 189 ==
LOC: ANHED 03:09 → ANH3MEDSUR 05:34
PROVIDERS: Internal Medicine; Student in an Organized Health Care Education/Training Program; Admitting Provider Internal Medicine; Emergency Provider Emergency Medicine; PCP Emergency Medicine; Visit Provider Nurse Practitioner
DX: J96.21 Acute and chronic respiratory failure with hypoxia (principal); J18.9 Pneumonia, unspecified organism; I50.32 Chronic diastolic (congestive) heart failure; J44.0 Chronic obstructive pulmonary disease with (acute) lower respiratory infection; Y95 Nosocomial condition; N18.9 Chronic kidney disease, unspecified; I48.0 Paroxysmal atrial fibrillation; M54.9 Dorsalgia, unspecified; G89.29 Other chronic pain; G47.33 Obstructive sleep apnea (adult) (pediatric); K74.60 Unspecified cirrhosis of liver; K21.9 Gastro-esophageal reflux disease without esophagitis; N40.0 Benign prostatic hyperplasia without lower urinary tract symptoms; Z20.822 Contact with and (suspected) exposure to COVID-19; E66.9 Obesity, unspecified; Z68.36 Body mass index [BMI] 36.0-36.9, adult; Z96.643 Presence of artificial hip joint, bilateral; Z79.82 Long term (current) use of aspirin; Z86.73 Personal history of transient ischemic attack (TIA), and cerebral infarction without residual deficits; Z79.01 Long term (current) use of anticoagulants; Z86.718 Personal history of other venous thrombosis and embolism; Z98.42 Cataract extraction status, left eye; Z98.41 Cataract extraction status, right eye; Z87.891 Personal history of nicotine dependence
CPT/HCPCS: 36415; 36600; 71045; 71046; 80053; 80202; 81001; 82565; 82607; 82746; 82805; 82948; 83605; 83735; 83880; 84132; 84145; 84484; 85025; 85055; 85610; 85730; 87070; 87086; 87205; 87493; 87637; 87641; 93005; 94640; 96365; 96375; 97110; 97116; 97161; 97165; 97530; 97535; 99285; A9270; C8929; G0378; J0692; J0696; J1940; J2270; J3370; J7512; Q9957

== ENCOUNTER 2023-12-02 11:35 | Emergency (ER) | payer MEDICARE, SELFPAY ==
[2023-12-02] VITALS (13 sets, daily range): BP systolic 84–116; BP diastolic 52–72; PULSE 91–107; RESP 17–23; TEMP 36.4; O2SAT 95–100
--- NOTE | ~2023-12-02 | XR_ITS ---
EXAMINATION: XR chest 2V DATE: 12/02/2023 12:45 INDICATION: Weakness. Hypotension. TECHNIQUE: Frontal and lateral views of the chest were obtained. COMPARISON: Chest single view 11/10/2023, CT abdomen and pelvis 10/11/2023 FINDINGS: There is no pneumonia, pleural effusion, or pneumothorax. The heart size is normal. IMPRESSION: 1. No acute cardiopulmonary disease. Reviewed, dictated and finalized at location A.
--- NOTE | 2023-12-02 11:54 | ECG_ITS ---
Test Date: 2023-12-02 11:55:39 Measurements Intervals [place] Rate: 94 P: 0 [place]: 0 QRS: -32 QRSD: 106 T: 74 QT: 362 QTc: 453 Interpretive Statements ATRIAL FIBRILLATION WITH ABERRANT CONDUCTION OR VENTRICULAR PREMATURE COMPLEXES MARKED LEFT AXIS DEVIATION [QRS AXIS < -30] SUSPECT PREVIOUS ANTERIOR INFARCTION ABNORMAL ECG ] Compared to ECG 11/04/2023 02:22:51 THERE IS NO SIGNIFICANT DIFFERENCE Electronically Signed On 12-02-2023 15:48:59 CDT by Epi Lake M.D.
[2023-12-02 12:18] LABS: Basophils Absolute Auto 0.1 K/mm3 (0.0-0.1); Basophils Percent Auto 0.6 % (0.2-1.2); Eosinophils Absolute Auto 0.4 K/mm3 (0-0.3); Eosinophils Percent Auto 4.3 % (0-4.4); Hematocrit 28.7 % (42.0-52.0); Hemoglobin 8.9 g/dL (14.0-18.0); Immature Granulocyte Absolute 0.25 K/mm3 (0.00-0.031); Immature Granulocyte Percent A 2.9 % (0-0.5); Lymphocytes Absolute Auto 0.86 K/mm3 (0.9-3.2); Lymphocytes Percent Auto 9.8 % (18.3-44.2); Mean Corpuscular Hemoglobin 30.7 pg (26-34); Mean Platelet Volume 11.8 fl (7.4-10.4); Monocytes Absolute Auto 0.9 K/mm3 (0.1-0.6); Neutrophils Absolute Auto 6.3 K/mm3 (1.3-6.7); Neutrophils Percent Auto 72.4 % (45.5-73.1); Platelet Count Result 206 k/mm3 (150-375); Red Cell Distribution Width 15.6 % (11.5-14.5); White Blood Count 8.8 K/mm3 (4.5-10.0)
[2023-12-02 12:26] LABS: Alanine Aminotransferase 20 U/L (6-50); Albumin Level 3.2 g/dL (3.5-5.1); Alkaline Phosphatase 131 U/L (38-126); Anion Gap 7 mmol/L (4-12); Aspartate Amino Transferase 29 U/L (17-59); Bilirubin,Total 0.5 mg/dL (0.2-1.3); Blood Urea Nitrogen 29 mg/dL (9-20); Calcium 8.4 mg/dL (8.4-10.2); Carbon Dioxide 25 mmol/L (22-30); Chloride 104 mmol/L (98-107); Estimated CRCL calculation 46 ml/min; Estimated Glomerular Filt Rate 42; Glucose 110 mg/dL (65-110); Potassium 3.7 mmol/L (3.4-5.0); Sodium 136 mmol/L (137-145)
[2023-12-02] MEDS: SODIUM CHLORIDE 0.9% IV 1,000 ML 500 ML IV CONT ×2 (12:36→15:13)
[2023-12-02 12:54] LABS: Lactic Acid Reflex 1.7 mmol/L (0.7-2.0)
--- NOTE | 2023-12-02 12:56 | ED.GENADULT ---
HPI - General Adult General Chief complaint: Weakness Stated complaint: sent by pcp, low BP, high HR Time Seen by Provider: 12/02/23 12:14 History of Present Illness HPI narrative: Patient is a 73-year-old male who presents to the emergency department this afternoon complaining of a low blood pressure and elevated heart rate. Patient states that he was at his primary care physicians office today and was told that his blood pressure was low and instructed to come to the emergency department for further evaluation. is currently present with patient about that and states that the patient has been in and out of hospitals for the past few weeks and was recently discharged on Tuesday. Since then patient has been having diarrhea at home. He is currently denying any additional symptoms or concerns at this time. Related Data Home Medications Medication Instructions Recorded Confirmed ferrous sulfate 324 mg (65 mg 324 mg PO DAILY 04/05/19 11/04/23 iron) tablet,delayed release tamsulosin 0.4 mg capsule (Flomax) 0.4 mg PO HS 04/05/19 11/04/23 aspirin 81 mg tablet,delayed 81 mg PO DAILY 05/21/19 11/04/23 release cetirizine 10 mg tablet 10 mg PO DAILY 08/04/19 11/04/23 acetaminophen 325 mg capsule 650 mg PO Q4H PRN Pain 03/17/20 11/04/23 bumetanide 0.5 mg tablet 0.5 mg PO BID 11/17/20 11/04/23 magnesium oxide 400 mg PO BID 03/04/21 11/04/23 pyridoxine (vitamin B6) 100 mg 100 mg PO DAILY 03/04/21 11/04/23 tablet cholecalciferol (vitamin D3) 25 25 mcg PO DAILY 03/03/23 11/04/23 mcg (1,000 unit) capsule folic acid 400 mcg tablet 0.4 mg PO DAILY 08/23/23 11/04/23 Lactobacillus acidophilus 1 tsp PO TID 11/04/23 11/04/23 albuterol sulfate 90 mcg/actuation 2 puff inhalation QID 11/04/23 11/04/23 aerosol inhaler budesonide 160 mcg-glycopyr 9 2 inh inhalation Q12H 11/04/23 11/04/23 mcg-formot 4.8 mcg/actuation HFA inhaler (Breztri Aerosphere) levalbuterol HCl 1.25 mg/0.5 mL 1.25 mg inhalation Q6H 11/04/23 11/04/23 solution for nebulization losartan 25 mg tablet 25 mg PO DAILY 11/04/23 11/04/23 sennosides 8.6 mg tablet 8.6 mg PO BID 11/04/23 11/04/23 venlafaxine 37.5 mg 37.5 mg PO DAILY 11/04/23 11/04/23 capsule,extended release 24 hr Allergies Allergy/AdvReac Type Severity Reaction Status Date / Time clindamycin Allergy Intermediate Rash Verified 12/02/23 09:54 levofloxacin Allergy Intermediate Swelling Verified 12/02/23 09:54 of the Eye Penicillins Allergy Intermediate Hives Verified 12/02/23 09:54 scopolamine Allergy Mild Confusion Verified 12/02/23 09:54 tobramycin Allergy Mild Hallucinati Verified 12/02/23 09:54 ng pepper (genus Capsicum) AdvReac Intermediate Nausea and Verified 12/02/23 09:54 Vomiting cats AdvReac Mild Headache Uncoded 12/02/23 09:54 Review of Systems Review of Systems: All systems are reviewed and are negative unless stated otherwise in the HPI. [facility] Past Medical History Medical History Benign prostatic hyperplasia Cerebrovascular accident Chronic anticoagulation Chronic diastolic heart failure Chronic kidney disease Chronic obstructive pulmonary disease Cirrhosis Deep venous thrombosis Gastroesophageal reflux disease MRSA (methicillin resistant Staphylococcus aureus) infection The patient had a spinal abscess L1-L2 complicated was septicemia and then had 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 On long-term doxycycline. Obstructive sleep apnea treated with BiPAP Paroxysmal atrial fibrillation Pneumothorax on left Surgical History Surgical History History of back surgery History of bilateral cataract extraction History of bilateral hip replacements History of colonoscopy with polypectomy History of revision of total replacement of hip joint History of tracheostomy Status post excision of lipoma Neck. Family History Family History (Reviewed 12/02/23 @ 12:58 by Noah
[2023-12-02 15:29] LABS: Appearance Urine Clear (Clear); Bacteria Urine None Seen /hpf; Bilirubin Urine Negative (Negative); Blood Urine Negative (Negative); Color Urine Yellow (Yellow); Glucose Urine UA Negative (Negative); Ketones Urine Negative (Negative); Leukocyte Esterase Ur 2+ LEU/UL (Negative); Need Manual Microscopic Reviewed; Nitrate Urine Negative (Negative); Protein Urine Negative (Negative); RBC Urine 0-2 /hpf (0-2); Specific Grav Ur 1.014 (1.001-1.035); Squamous Epithelial Cell Urine Few /hpf (Few); Urobilinogen Urine 0.2 mg/dL (<2.0); pH Urine 5.5 (5.0-9.0)
[2023-12-02 15:30] LABS: Add Urine Microscopic? YES
[2023-12-02] MEDS: ALBUTEROL SULFATE NEB 2.5 MG/3 ML INH INHALATION (16:02)
== END 2023-12-02 16:52 | disposition home or self-care (01) ==
PROVIDERS: Emergency Medicine; Emergency Provider Emergency Medicine; PCP Emergency Medicine
DX: E86.0 Dehydration (principal); R19.7 Diarrhea, unspecified; I95.9 Hypotension, unspecified; N47.1 Phimosis; I50.32 Chronic diastolic (congestive) heart failure; N18.9 Chronic kidney disease, unspecified; I48.0 Paroxysmal atrial fibrillation; Z86.73 Personal history of transient ischemic attack (TIA), and cerebral infarction without residual deficits; Z79.01 Long term (current) use of anticoagulants; Z87.891 Personal history of nicotine dependence
CPT/HCPCS: 36415; 71046; 80053; 81001; 83605; 85025; 87077; 87086; 87088; 87186; 93005; 94640; 96360; 96361; 99283; J7030

== ENCOUNTER 2023-12-16 15:55 | Outpatient (NON) | payer MEDICARE, SELFPAY ==
[2023-12-22 22:08] LABS: Calprotectin, Stool 2770 mcg/g
== END 2023-12-16 15:56 | disposition home or self-care (01) ==
LOC: ANHLAB 15:55
PROVIDERS: PCP Emergency Medicine; Visit Provider Nurse Practitioner Family
DX: K92.1 Melena (principal); R19.7 Diarrhea, unspecified; Z87.19 Personal history of other diseases of the digestive system
CPT/HCPCS: 83993; 87045; 87269; 87427; 87449

== ENCOUNTER 2024-01-18 12:52 | Outpatient (CLI) | payer MEDICARE, SELFPAY ==
--- NOTE | ~2024-01-18 | XR_ITS ---
XR chest 2V 01/18/2024 13:15 Indication: Cough Procedure: 2 view chest Comparison: Comparison to multiple prior studies sequentially, with oldest reviewed study dated 07/2023. Findings: Cardiomegaly. Bilateral interstitial infiltrates peripherally may represent atypical pneumo yue or edema. Chronic blunting left lateral costophrenic recess, pleural effusion versus pleural thic kening. Impression: 1: Mild peripheral interstitial infiltrates may represent edema or atypical pneumonia. Reviewed, dictated and finalized at location B. Impression: 1: Mild peripheral interstitial infiltrates may represent edema or atypical pne umonia.
== END 2024-01-18 12:53 | disposition home or self-care (01) ==
PROVIDERS: PCP Emergency Medicine; Visit Provider Nurse Practitioner Family
DX: R05.9 Cough, unspecified (principal); R91.8 Other nonspecific abnormal finding of lung field
CPT/HCPCS: 71046

== ENCOUNTER 2024-01-19 13:42 | Inpatient (IN) | payer MEDICARE, SELFPAY ==
[2024-01-19] VITALS (28 sets, daily range): BP systolic 103–142; BP diastolic 50–93; PULSE 84–107; RESP 16–30; TEMP 36.4–36.7; O2SAT 95–100; BMI 32.6
--- NOTE | ~2024-01-19 | CT_ITS ---
EXAMINATION: CT diagnostic chest wo con DATE: 01/19/2024 19:46 INDICATION: SOB. Undifferentiated, copd/chf/pna TECHNIQUE: Computed tomography (CT) of the chest was performed without intravenous contrast. Addition al 3D reconstructions utilizing coronal maximum intensity projection (MIP) were performed. Automated exposure control and iterative reconstruction technique were employed. The dose-length prod uct was 546.56 mGy-cm. COMPARISON: None FINDINGS: There are very small bilateral pleural effusions. There is some smooth septal line thickening at the bilateral lung bases consistent with mild pulmonary edema. There are patchy areas of consolidation wi th surrounding groundglass opacities in the bilateral upper lobes, lingula with additional subtle laurence undglass and tree-in-bud opacities in the lingula, right middle and bilateral lower lobes consistent with multifocal pneumonia. There is also some scattered linear discoid atelectasis in the bases in th e lingula and bilateral lower lobes. Heart size normal. Atherosclerotic coronary artery calcific lesi ons and coronary artery stenting. No pericardial effusion. Thoracic aorta is normal in caliber. Calci fied right hilar and mediastinal lymph nodes consistent with old granulomatous disease. No pathologic ally enlarged abdominal or pelvic lymphadenopathy. L2-L3 anterior spinal fusion with interbody fusion device. Severe lower cervical and moderate to severe thoracic spondylosis with bridging osteophytes at multiple levels consistent with diffuse idiopathic skeletal hyperostosis (DISH). IMPRESSION: 1. Bilateral multifocal pneumonia. 2. Mild pulmonary edema. Bilateral lung bases with very small bilateral pleural effusions. Reviewed, dictated and finalized at location A.
--- NOTE | ~2024-01-19 | XR_ITS ---
EXAMINATION: XR chest 1V portable DATE: 01/19/2024 15:08 INDICATION: Shortness of breath TECHNIQUE: frontal view of the chest was obtained. COMPARISON: Chest radiograph dated 01/18/2024 FINDINGS: Diffuse increased interstitial pattern with mild scattered airspace opacities in the bilateral upper and lower lung zones. Unchanged blunting at the left costophrenic angle which could represent atelect asis/scarring or small pleural effusion. No pneumothorax or right-sided pleural effusion. Heart size is normal. IMPRESSION: 1. Bilateral interstitial and airspace opacities which could represent mild pulmonary edema, pneumoni a, atelectasis or some combination thereof. 2. Possible small left pleural effusion. Reviewed, dictated and finalized at location A. IMPRESSION: 1. Bilateral interstitial and airspace opacities which could represent mild pul monary edema, pneumonia, atelectasis or some combination thereof. 2. Possible small left pleural effusion.
--- NOTE | 2024-01-19 13:50 | ECG_ITS ---
Test Date: 2024-01-19 13:51:48 Measurements Intervals [place] Rate: 94 P: 0 [place]: 0 QRS: -26 QRSD: 111 T: 85 QT: 319 QTc: 400 Interpretive Statements ATRIAL FIBRILLATION WITH ABERRANT CONDUCTION OR VENTRICULAR PREMATURE COMPLEXES PREVIOUS ANTERIOR MT ABNORMAL ECG Compared to ECG 12/02/2023 11:55:39 NO DIFFERENCE Electronically Signed On 01-20-2024 14:35:47 CDT by Epi Lake M.D.
[2024-01-19] MEDS: IPRATROPIUM 0.5 MG/ALBUTEROL SULFATE 2.5 MG AMPUL.NEB 3 ML 12 ML INHALATION (14:05)
[2024-01-19] MEDS: SODIUM CHLORIDE 0.9% IV 1,000 ML 999 ML IV CONT (14:23)
[2024-01-19] MEDS: dexAMETHasone SOD PHOS INJ 10 MG/ML 1 ML VIAL IV PUSH (14:24)
[2024-01-19] MEDS: MAGNESIUM SULF 2 GM/WATER 50ML 2 GM/50 ML BAG IVPB (14:26)
[2024-01-19 14:27] LABS: Basophils Absolute Auto 0.1 K/mm3 (0.0-0.1); Basophils Percent Auto 0.5 % (0.2-1.2); Eosinophils Absolute Auto 0.9 K/mm3 (0-0.3); Eosinophils Percent Auto 7.7 % (0-4.4); Hematocrit 32.8 % (42.0-52.0); Hemoglobin 9.8 g/dL (14.0-18.0); Immature Granulocyte Absolute 0.07 K/mm3 (0.00-0.031); Immature Granulocyte Percent A 0.6 % (0-0.5); Lymphocytes Absolute Auto 0.65 K/mm3 (0.9-3.2); Lymphocytes Percent Auto 5.8 % (18.3-44.2); Mean Corpuscular HGB Conc 29.9 g/dl (32-36); Mean Corpuscular Volume 103.8 fl (80-100); Mean Platelet Volume 11.9 fl (7.4-10.4); Monocytes Absolute Auto 0.9 K/mm3 (0.1-0.6); Monocytes Percent Auto 8.3 % (2.6-8.5); Neutrophils Absolute Auto 8.6 K/mm3 (1.3-6.7); Neutrophils Percent Auto 77.1 % (45.5-73.1); Platelet Count Result 217 k/mm3 (150-375); Red Blood Count 3.16 M/mm3 (4.6-6.20); Red Cell Distribution Width 16.7 % (11.5-14.5); White Blood Count 11.1 K/mm3 (4.5-10.0)
[2024-01-19 14:35] LABS: Lactic Acid Reflex 1.4 mmol/L (0.7-2.0); Lipase 120 U/L (23-300); Magnesium 1.9 mg/dL (1.6-2.3)
[2024-01-19 14:36] LABS: INR 1.3; Prothrombin Time 17.2 Seconds (11.1-14.7)
[2024-01-19 14:37] LABS: Partial Thromboplastin Time 32.8 Seconds (22.3-36.8)
--- NOTE | 2024-01-19 14:37 | PC.NURSE ---
blood sugar is 148 at this time
[2024-01-19 14:38] LABS: Glucose Point of Care 148 mg/dl (65-105)
[2024-01-19 14:39] LABS: Alanine Aminotransferase 21 U/L (6-50); Albumin Level 3.6 g/dL (3.5-5.1); Alkaline Phosphatase 104 U/L (38-126); Anion Gap 10 mmol/L (4-12); Aspartate Amino Transferase 23 U/L (17-59); Bilirubin,Total 0.5 mg/dL (0.2-1.3); Blood Urea Nitrogen 37 mg/dL (9-20); Carbon Dioxide 27 mmol/L (22-30); Chloride 101 mmol/L (98-107); Estimated CRCL calculation 56 ml/min; Estimated Glomerular Filt Rate 54; Glucose 194 mg/dL (65-110); Potassium 4.5 mmol/L (3.4-5.0); Sodium 138 mmol/L (137-145)
[2024-01-19 14:41] LABS: Hypochromasia 1+; Ovalocytes 1+; Platelet Estimate Adequate (Adequate); Schistocytes None Seen
[2024-01-19 14:45] LABS: NT Pro B Type Natriuretic Pept 8680 pg/mL (19.9-100)
[2024-01-19 14:48] LABS: Troponin I 0.015 ng/mL (0.000-0.034)
--- NOTE | 2024-01-19 15:54 | PC.NURSE ---
pt is aware he needs to give a urine sample. pt is unable to void. urinal at bedside
--- NOTE | 2024-01-19 16:51 | ECG_ITS ---
Test Date: 2024-01-19 16:57:53 Measurements Intervals [place] Rate: 95 P: 0 [place]: 0 QRS: -28 QRSD: 106 T: 98 QT: 334 QTc: 421 Interpretive Statements ATRIAL FIBRILLATION WITH ABERRANT CONDUCTION OR VENTRICULAR PREMATURE COMPLEXES PREVIOUS ANTERIOR INFARCTION , OF INDETERMINATE AGE [30 ms Q WAVE IN V3/V4, OR R < 0.2 mV IN V4] ABNORMAL ECG Compared to ECG 01/19/2024 13:51:48 No significant changes Electronically Signed On 01-20-2024 14:51:02 CDT by Epi Lake M.D.
[2024-01-19 17:22] LABS: Troponin I 0.016 ng/mL (0.000-0.034)
--- NOTE | 2024-01-19 18:59 | ED.GENADULT ---
HPI - General Adult General Chief complaint: Shortness of Breath/Dyspnea Stated complaint: SOB, History of Present Illness HPI narrative: This is a 73 year male with COPD on 2 L home oxygen presenting cough x2 days. Patient typically uses the oxygen 2 L p.r.n. for activity but has had to increase it to 3 L all times. He has been having productive cough with clear sputum and left-sided chest pain. He denies fevers chills nausea vomiting or diarrhea. No lower extremity edema. Patient was seen by pulmonology yesterday who had ordered the chest x-ray diagnosed pneumonia. Related Data Home Medications Medication Instructions Recorded Confirmed ferrous sulfate 324 mg (65 mg 324 mg PO DAILY 04/05/19 01/18/24 iron) tablet,delayed release tamsulosin 0.4 mg capsule (Flomax) 0.4 mg PO HS 04/05/19 01/18/24 aspirin 81 mg tablet,delayed 81 mg PO DAILY 05/21/19 01/18/24 release cetirizine 10 mg tablet 10 mg PO DAILY 08/04/19 01/18/24 acetaminophen 325 mg capsule 650 mg PO Q4H PRN Pain 03/17/20 01/18/24 bumetanide 0.5 mg tablet 0.5 mg PO BID 11/17/20 01/18/24 magnesium oxide 400 mg PO BID 03/04/21 01/18/24 pyridoxine (vitamin B6) 100 mg 100 mg PO DAILY 03/04/21 01/18/24 tablet cholecalciferol (vitamin D3) 25 25 mcg PO DAILY 03/03/23 01/18/24 mcg (1,000 unit) capsule folic acid 400 mcg tablet 0.4 mg PO DAILY 08/23/23 01/18/24 Lactobacillus acidophilus 1 tsp PO TID 11/04/23 01/18/24 albuterol sulfate 90 mcg/actuation 2 puff inhalation QID 11/04/23 01/18/24 aerosol inhaler venlafaxine 37.5 mg 37.5 mg PO DAILY 11/04/23 01/18/24 capsule,extended release 24 hr omeprazole 40 mg capsule,delayed 40 mg PO DAILY 12/27/23 01/18/24 release Allergies Allergy/AdvReac Type Severity Reaction Status Date / Time clindamycin Allergy Intermediate Rash Verified 01/18/24 11:17 levofloxacin Allergy Intermediate Swelling Verified 01/18/24 11:17 of the Eye Penicillins Allergy Intermediate Hives Verified 01/18/24 11:17 scopolamine Allergy Mild Confusion Verified 01/18/24 11:17 tobramycin Allergy Mild Hallucinati Verified 01/18/24 11:17 ng pepper (genus Capsicum) AdvReac Intermediate Nausea and Verified 01/18/24 11:17 Vomiting cats AdvReac Mild Headache Uncoded 01/04/24 10:10 PMFSH Past Medical History Medical History Benign prostatic hyperplasia Blood in stool, [place] Cerebrovascular accident Chronic anticoagulation Chronic diastolic heart failure Chronic kidney disease Chronic obstructive pulmonary disease Cirrhosis Deep venous thrombosis Gastroesophageal reflux disease Iron (Fe) deficiency anemia MRSA (methicillin resistant Staphylococcus aureus) infection The patient had a spinal abscess L1-L2 complicated was septicemia and then had 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 On long-term doxycycline. Obstructive sleep apnea treated with BiPAP Paroxysmal atrial fibrillation Pneumothorax on left Rectal bleeding Surgical History Surgical History History of back surgery History of bilateral cataract extraction History of bilateral hip replacements History of colonoscopy with polypectomy History of revision of total replacement of hip joint History of tracheostomy Status post excision of lipoma Neck. Family History Family History Mother Family history of cardiovascular disease Family history of coronary artery disease Father Family history of liver disease Sibling Hypertension Cerebrovascular accident Chronic obstructive pulmonary disease Social History Social History Social History: Surrogate medical decision maker: Trinity Keys, spouse. Code status: Full code. Smoking packs per day: 1 Smoking cigarettes per day: 20.0 Years smoked: 7 Smoking pack-years: 7.00 Smoking status: Ramana
[2024-01-19] MEDS: FUROSEMIDE INJ 40 MG/4 ML VIAL IV PUSH (19:35)
[2024-01-19 19:39] LABS: Add Urine Microscopic? YES; Appearance Urine Clear (Clear); Bacteria Urine None Seen /hpf; Bilirubin Urine Negative (Negative); Blood Urine Negative (Negative); Color Urine Yellow (Yellow); Glucose Urine UA Negative (Negative); Ketones Urine Negative (Negative); Leukocyte Esterase Ur 1+ LEU/UL (Negative); Need Manual Microscopic Reviewed; Nitrate Urine Negative (Negative); Non Pathogenic Casts 0-2; Protein Urine 1+ mg/dL (Negative); RBC Urine 0-2 /hpf (0-2); Specific Grav Ur 1.015 (1.001-1.035); Squamous Epithelial Cell Urine None Seen /hpf (Few); Urobilinogen Urine 0.2 mg/dL (<2.0); WBC Urine 0-5 /hpf (0-3); pH Urine 5.5 (5.0-9.0)
[2024-01-19 19:49] LABS: Influenza A QL RT-PCR Negative (Negative); Influenza B QL RT-PCR Negative (Negative); RSV RNA, RT-PCR Negative (Negative); SARS-CoV-2 RNA PCR Negative (Negative)
--- NOTE | 2024-01-19 20:17 | PM.IMHP ---
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 Patient had been evaluated at the sack cleaner office on yesterday and was told that he had pneumonia. He was satting 92% on his home oxygen of 2 L. patient was having such shortness of breath he tried 3 breathing treatments before EMS arrived at his home without significant improvement in symptoms. The patient's reports the patient has been restless especially at night and has had to sleep sitting upright. He has had a cough productive of white sputum. They checked his temperature is daily and he has been afebrile. They report that his blood pressures had been low a couple of weeks ago and his losartan was discontinued at that time. His is noticed a trend in his heart rate going upward his usual baseline heart rate used to be in the 66 70s. Now his heart rate has been more so in the upper 80s to low 100s. They have mention this to Dr. Lake. She does not think that the patient's legs have become more swollen than usual. His weight is actually down about 20 lb since his multiple hospitalizations in October through December. The patient has been on BiPAP therapy for many years with settings of 18/14 with 2 L bleed in. The patient follows with Reji Ritchie PULLMAN CAR CLERK at the sack cleaner office. Since his recent hospitalizations the patient has required increased BiPAP settings with his prior hospitalizations but his home BiPAP has not been adjusted. The patient had also been on a recent steroid taper for ulcerative colitis and is steroid taper finished within the last week. He has been on mesalamine which has been weaned down to once nightly dosing. His reports that his loose stools have stopped. Steroids were started in the late part of November after the patient had diarrhea to the point that he became hypotensive and dehydrated. She did not give him his dose of mesalamine last night due to and feeling generally ill. He denies any urinary symptoms. Pure wick catheter was placed in the ER. The patient did have mildly elevated white count in the ER and both chest x-ray and CT suggested combination multifocal pneumonia and CHF. The patient's BNP was elevated from baseline. Patient received 1 L of fluid in the ER but this was subsequently followed by 40 mg of Lasix. Patient had recent echocardiogram October 2023 it was a difficult study but overall good systolic function with hypokinesis of mid to apical septum and apex with significant biatrial dilatation and atrial fibrillation oddly enough grade 1 diastolic dysfunction is mention EF was 60-65. Patient has been compliant with his home Eliquis. He has been taking his home spironolactone and Bumex as directed. Patient did receive 1 dose of Decadron in the ER. The patient's does report that patient has chronic skin changes of his lower extremities. She has not noticed significant increased edema. But she has noticed bilateral erythema that is worsened over the last 2 days. Source of information came from ER physician report, review of past medical records and the patient's . The patient did try to give some history but it was limited due to BiPAP and mild confusion. Patient was alert oriented person place year and name of the current president. He initially stated that the month was December but did correct himself to January. Review of Systems Review of Systems: 12 systems were reviewed with pertinent positives and negatives per HPI. Except as doc
[2024-01-19 20:29] LABS: Alveolar/Arterial O2 Gradient 83.8 mmHg; Base Excess ABG 0.4 mEq/l (+/-2.0); Fractional Inspired Oxygen 36 %; HCO3 ABG 26.8 mEq/l (22.0-26.0); Oxygen Content ABG 15.7 %vol (16.0-22.0); Oxygen Saturation ABG 97.8 % (95.0-100.0); Oxyhemoglobin 97.8 % THb (90.0-100.0); PCO2 ABG 51.7 mmHg (35.0-45.0); PO2 ABG 112.9 mmHg (80.0-100.0); PO2 FiO2 Ratio Arterial Blood 3.14 %; Total Hemoglobin 11.3 g/dL (12.0-18.0); pH ABG 7.333 (7.350-7.450)
[2024-01-19 20:30] LABS: Device BIPAP; Modified Allen's Test Pass; Site Drawn RIGHT RADIAL
[2024-01-19 20:31] LABS: Expiratory Pressure 5 cmH2O; Inspiratory Pressure 15 cmH2O
[2024-01-19] MEDS: AZITHROMYCIN 500 MG/NS 250 ML 500 MG/250 ML BAG 250 MG IVPB (20:58)
[2024-01-19 22:02] LABS: MRSA (PCR) DETECTED (NOT DETECTE)
[2024-01-19 23:27] LABS: Alveolar/Arterial O2 Gradient 41.9 mmHg; Base Excess ABG 0.9 mEq/l (+/-2.0); Fractional Inspired Oxygen 32 %; HCO3 ABG 27.9 mEq/l (22.0-26.0); Oxygen Content ABG 17.6 %vol (16.0-22.0); Oxygen Saturation ABG 98.1 % (95.0-100.0); Oxyhemoglobin 97.5 % THb (90.0-100.0); PCO2 ABG 55.1 mmHg (35.0-45.0); PO2 ABG 121.8 mmHg (80.0-100.0); PO2 FiO2 Ratio Arterial Blood 3.81 %; Total Hemoglobin 12.7 g/dL (12.0-18.0); pH ABG 7.323 (7.350-7.450)
[2024-01-19 23:28] LABS: Device BIPAP; Expiratory Pressure 14 cmH2O; Inspiratory Pressure 18 cmH2O; Modified Allen's Test Pass; Site Drawn RIGHT RADIAL
--- NOTE | 2024-01-19 23:30 | ADMGEN ---
This patient, Mason Keys, was admitted to IMU Room 201-01. Patient/family oriented to hospital policies and general routines including ID bracelet, bed and alarms, visiting hours, pain management, procedures, bathroom and other care routines, personal items, smoking policy, room service/diet, and visiting hours. Information on how to activate the Rapid Response Team has been discussed. Patient/Family are encouraged to report perceived risks to care and to ask questions if they do not understand what they are told or what they should do. Patient arrived to IMU at 2246.
[2024-01-19] MEDS: VANCOMYCIN 1,250 MG/NS 250 ML 1,250 MG/250 ML BAG 166.67 MG IVPB (23:53)
[2024-01-20] VITALS (29 sets, daily range): BP systolic 110–120; BP diastolic 62–74; PULSE 78–108; RESP 20–26; TEMP 36.2–37.1; O2SAT 96–100; BMI 32.8
[2024-01-20] MEDS: VANCOMYCIN 1,250 MG/NS 250 ML 1,250 MG/250 ML BAG 166.67 MG IVPB (01:22)
[2024-01-20] MEDS: IPRATROPIUM BR 0.02% INH SOLN 0.5 MG/2.5 ML VIAL INHALATION ×4 (01:40→20:39)
[2024-01-20] MEDS: ALBUTEROL SULFATE NEB 2.5 MG/3 ML INH 5 MG INHALATION ×4 (01:40→20:39)
[2024-01-20 04:25] LABS: Basophils Percent Auto 0.2 % (0.2-1.2); Hematocrit 32.5 % (42.0-52.0); Hemoglobin 9.7 g/dL (14.0-18.0); Immature Granulocyte Absolute 0.05 K/mm3 (0.00-0.031); Immature Granulocyte Percent A 0.8 % (0-0.5); Lymphocytes Absolute Auto 0.47 K/mm3 (0.9-3.2); Lymphocytes Percent Auto 7.5 % (18.3-44.2); Mean Corpuscular HGB Conc 29.8 g/dl (32-36); Mean Corpuscular Hemoglobin 31.4 pg (26-34); Mean Corpuscular Volume 105.2 fl (80-100); Mean Platelet Volume 12.6 fl (7.4-10.4); Monocytes Absolute Auto 0.2 K/mm3 (0.1-0.6); Monocytes Percent Auto 2.7 % (2.6-8.5); Neutrophils Absolute Auto 5.6 K/mm3 (1.3-6.7); Neutrophils Percent Auto 88.8 % (45.5-73.1); Platelet Count Result 231 k/mm3 (150-375); Red Blood Count 3.09 M/mm3 (4.6-6.20); Red Cell Distribution Width 16.9 % (11.5-14.5); White Blood Count 6.3 K/mm3 (4.5-10.0)
[2024-01-20 04:42] LABS: Anion Gap 11 mmol/L (4-12); Blood Urea Nitrogen 36 mg/dL (9-20); Calcium 9.1 mg/dL (8.4-10.2); Carbon Dioxide 27 mmol/L (22-30); Chloride 103 mmol/L (98-107); Estimated CRCL calculation 55 ml/min; Estimated Glomerular Filt Rate 54; Glucose 145 mg/dL (65-110); Potassium 4.7 mmol/L (3.4-5.0); Sodium 141 mmol/L (137-145)
[2024-01-20 04:48] LABS: Platelet Estimate Adequate (Adequate)
[2024-01-20 04:49] LABS: Hypochromasia 1+; Ovalocytes 1+; Schistocytes None Seen
[2024-01-20] MEDS: methylPREDNISolone SOD SUCC 125 MG VIAL 40 MG IV PUSH ×3 (06:28→21:09)
[2024-01-20] MEDS: FUROSEMIDE INJ 40 MG/4 ML VIAL IV PUSH ×2 (08:43→17:31)
--- NOTE | 2024-01-20 10:32 | PM.IMPN ---
Progress Note: A&P Assessment and Plan (1) MRSA colonization: Code(s): Z22.322 - Carrier or suspected carrier of Methicillin resistant Staphylococcus aureus Status: Acute (2) Acute on chronic respiratory failure with hypoxia and hypercapnia: Code(s): J96.21 - Acute and chronic respiratory failure with hypoxia; J96.22 - Acute and chronic respiratory failure with hypercapnia Status: Acute (3) Respiratory failure: Code(s): J96.90 - Respiratory failure, unspecified, unspecified whether with hypoxia or hypercapnia Status: Acute (4) CHF (congestive heart failure): Qualifiers: Heart failure chronicity: acute on chronic Heart failure type: unspecified Qualified Code(s): I50.9 - Heart failure, unspecified Code(s): I50.9 - Heart failure, unspecified Status: Acute (5) COPD (chronic obstructive pulmonary disease): Qualifiers: COPD type: COPD with acute lower respiratory infection Qualified Code(s): J44.0 - Chronic obstructive pulmonary disease with (acute) lower respiratory infection Code(s): J44.9 - Chronic obstructive pulmonary disease, unspecified Status: Acute (6) Pneumonia: Qualifiers: Laterality: bilateral Lung location: unspecified part of lung Pneumonia type: due to unspecified organism Qualified Code(s): J18.9 - Pneumonia, unspecified organism Code(s): J18.9 - Pneumonia, unspecified organism Status: Acute (7) Ulcerative colitis: Qualifiers: Ulcerative colitis location: unspecified ulcerative colitis location Digestive disease complication type: without complication Qualified Code(s): K51.90 - Ulcerative colitis, unspecified, without complications Code(s): K51.90 - Ulcerative colitis, unspecified, without complications Status: Acute Plan Patient is breathing slightly improved. Continue BiPAP, Lasix. Monitor respiratory status. Wean O2 as tolerated. Subjective Date/time seen: 01/20/24 10:32 Interval history: No acute overnight events. Patient believes his breathing is slightly improved Review of Systems Review of Systems: All systems reviewed & are unremarkable except as noted in HPI and below (Subjective) Exam Const: General: comfortable and no acute distress Eyes: Pupils: Equal, round and reactive pupils present Neck: Neck: supple Resp: Effort & Inspection: normal respiratory effort Auscultation: crackles (At the bases) and wheezes (Expiratory) Cardio: Rate: regular rate Rhythm: regular rhythm GI: GI Palp: Yes Soft to palpation and No Tenderness to palpation present (GI) Extrem: Other: Stasis dermatitis, lipodermatosclerosis Objective Data Vital Signs Vital Signs: Vital Signs - 24 hr 01/19/24 13:30 01/19/24 13:58 01/19/24 14:02 Temperature 98.1 F Pulse Rate 90 93 Respiratory Rate 24 H Blood Pressure 129/71 Pulse Oximetry 100 100 Oxygen Delivery Nasal Cannula Nasal Cannula Oxygen Flow Rate 3 3 01/19/24 14:02 01/19/24 14:08 01/19/24 15:09 Temperature Pulse Rate 95 97 Respiratory Rate 25 H 20 Blood Pressure 123/65 Pulse Oximetry 100 100 Oxygen Delivery Nasal Cannula Oxygen Flow Rate 3 01/19/24 15:29 01/19/24 15:47 01/19/24 16:02 Temperature Pulse Rate 98 107 H 95 Respiratory Rate 24 H 22 H 16 Blood Pressure 112/71 107/67 Pulse Oximetry 100 100 Oxygen Delivery Oxygen Flow Rate 01/19/24 16:16 01/19/24 16:32 01/19/24 16:47 Temperature Pulse Rate 99 97 98 Respiratory Rate 17 16 17 Blood Pressure 116/70 114/50 L 103/66 Pulse Oximetry 100 99 99 Oxygen Delivery Oxygen Flow Rate 01/19/24 17:37 01/19/24 19:04 01/19/24 19:07 Temperature 97.6 F Pulse Rate 99 86 Respiratory Rate 18 24 H Blood Pressure 113/72 Pulse Oximetry 98 100 100 Oxygen Delivery BiPAP BiPAP Oxygen Flow Rate 01/19/24 19:43 01/19/24 19:01 01/19/24 21:00 Temperature Pulse Rate 96 88 84 Resp
[2024-01-20 12:10] LABS: Glucose Point of Care 182 mg/dl (65-105)
[2024-01-20 15:08] LABS: Anion Gap 12 mmol/L (4-12); Blood Urea Nitrogen 41 mg/dL (9-20); Calcium 9.1 mg/dL (8.4-10.2); Carbon Dioxide 25 mmol/L (22-30); Chloride 101 mmol/L (98-107); Estimated CRCL calculation 55 ml/min; Estimated Glomerular Filt Rate 54; Glucose 185 mg/dL (65-110); Magnesium 2.3 mg/dL (1.6-2.3); Potassium 4.7 mmol/L (3.4-5.0); Sodium 138 mmol/L (137-145)
[2024-01-20 17:54] LABS: Glucose Point of Care 156 mg/dl (65-105)
[2024-01-20] MEDS: ACIDOPHILUS PACKET 1 PKT PACKET PO (18:28)
[2024-01-20] MEDS: MAGNESIUM OXIDE 400 MG TABLET PO (18:28)
[2024-01-20] MEDS: APIXABAN 5 MG TABLET PO (18:28)
[2024-01-20] MEDS: GABAPENTIN 300 MG CAPSULE PO (18:28)
[2024-01-20] MEDS: FLUTICASONE PROPIONATE 0.05% NA SPR 16 GM BTL (*BKC) 2 SPRAY NASAL (18:28)
[2024-01-20] MEDS: AZITHROMYCIN 500 MG/NS 250 ML 500 MG/250 ML BAG 250 MG IVPB (20:33)
[2024-01-20 20:37] LABS: Glucose Point of Care 232 mg/dl (65-105)
[2024-01-20] MEDS: BACLOFEN 10 MG TABLET BY MOUTH (21:10)
[2024-01-20] MEDS: TAMSULOSIN HCL 0.4 MG CAPSULE PO (21:10)
[2024-01-20] MEDS: VANCOMYCIN 1,500 MG/NS 500 ML 1,500 MG/500 ML BAG 250 MG IVPB (23:10)
[2024-01-21] VITALS (29 sets, daily range): BP systolic 94–149; BP diastolic 62–88; PULSE 75–120; RESP 20–28; TEMP 36.5–37.2; O2SAT 95–100
[2024-01-21] MEDS: IPRATROPIUM BR 0.02% INH SOLN 0.5 MG/2.5 ML VIAL INHALATION ×4 (02:09→20:12)
[2024-01-21] MEDS: ALBUTEROL SULFATE NEB 2.5 MG/3 ML INH 5 MG INHALATION ×4 (02:09→20:12)
[2024-01-21 04:27] LABS: Hematocrit 31.2 % (42.0-52.0); Hemoglobin 9.5 g/dL (14.0-18.0); Mean Corpuscular HGB Conc 30.4 g/dl (32-36); Mean Corpuscular Hemoglobin 31.5 pg (26-34); Mean Corpuscular Volume 103.3 fl (80-100); Mean Platelet Volume 11.9 fl (7.4-10.4); Platelet Count Result 269 k/mm3 (150-375); Red Blood Count 3.02 M/mm3 (4.6-6.20); Red Cell Distribution Width 16.9 % (11.5-14.5); White Blood Count 10.9 K/mm3 (4.5-10.0)
[2024-01-21 04:39] LABS: Anion Gap 8 mmol/L (4-12); Blood Urea Nitrogen 47 mg/dL (9-20); Calcium 9.1 mg/dL (8.4-10.2); Carbon Dioxide 29 mmol/L (22-30); Chloride 101 mmol/L (98-107); Estimated CRCL calculation 48 ml/min; Estimated Glomerular Filt Rate 46; Glucose 168 mg/dL (65-110); Magnesium 2.2 mg/dL (1.6-2.3); Sodium 138 mmol/L (137-145)
[2024-01-21] MEDS: methylPREDNISolone SOD SUCC 40 MG VIAL IV PUSH (05:33)
--- NOTE | 2024-01-21 08:03 | P.PNIM_ITS ---
Progress Note: A&P Assessment and Plan (1) Acute on chronic respiratory failure with hypoxia and hypercapnia: Code(s): J96.21 - Acute and chronic respiratory failure with hypoxia; J96.22 - Acute and chronic respiratory failure with hypercapnia Status: Acute (2) CHF (congestive heart failure): Qualifiers: Heart failure chronicity: acute on chronic Heart failure type: unspecified Qualified Code(s): I50.9 - Heart failure, unspecified Code(s): I50.9 - Heart failure, unspecified Status: Acute (3) COPD (chronic obstructive pulmonary disease): Qualifiers: COPD type: COPD with acute lower respiratory infection Qualified Code(s): J44.0 - Chronic obstructive pulmonary disease with (acute) lower respiratory infection Code(s): J44.9 - Chronic obstructive pulmonary disease, unspecified Status: Acute (4) Pneumonia: Qualifiers: Laterality: bilateral Lung location: unspecified part of lung Pneumonia type: due to unspecified organism Qualified Code(s): J18.9 - Pneumonia, unspecified organism Code(s): J18.9 - Pneumonia, unspecified organism Status: Acute Plan H&P via Caprice Delgado DO on 01/19/24 Chief Complaint: Difficulty breathing for 2 days Narrative: 73-year-old male with a past medical history of atrial fibrillation, CHF with preserved ejection fraction, COPD, obstructive sleep apnea, coronary artery disease, non alcoholic cirrhosis, essential hypertension, MRSA bacteremia on chronic suppressive therapy since 2017 with doxycycline, recent hospitalization for strep G bacteremia October through November, who presented to the ER via EMS from home with shortness of breath for 2 or 3 days. Patient had been evaluated at the management trainee program stores office on yesterday and was told that he had pneumonia. He was satting 92% on his home oxygen of 2 L. patient was having such shortness of breath he tried 3 breathing treatments before EMS arrived at his home without significant improvement in symptoms. The patient's reports the patient has been restless especially at night and has had to sleep sitting upright. He has had a cough productive of white sputum. They checked his temperature is daily and he has been afebrile. They report that his blood pressures had been low a couple of weeks ago and his losartan was discontinued at that time. His is noticed a trend in his heart rate going upward his usual baseline heart rate used to be in the 66 70s. Now his heart rate has been more so in the upper 80s to low 100s. They have mention this to Dr. Lake. She does not think that the patient's legs have become more swollen than usual. His weight is actually down about 20 lb since his multiple hospitalizations in October through December. The patient has been on BiPAP therapy for many years with settings of 18/14 with 2 L bleed in. The patient follows with Reji Ritchie PRINTED CIRCUIT DESIGNER at the management [facility] office. Since his recent hospitalizations the patient has required increased BiPAP settings with his prior hospitalizations but his home BiPAP has not been adjusted. The patient had also been on a recent steroid taper for ulcerative colitis and is steroid taper finished within the last week. He has been on mesalamine which has been weaned down to once nightly dosing. His reports that his loose stools have stopped. Steroids were started in the late part of November after the patient had diarrhea to the point that he became hypotensive and dehydrated. She did not give him his dose of mesalamine last night due to and feeling generally ill. He denies any urinary symptoms. Pure wick catheter was placed in the ER. The patient did have mild
[2024-01-21] MEDS: FLUTICASONE/UMECLIDIN/VILANTER 100-62.5-25 MCG ELLIPTA 1 PUFF INHALATION (08:22)
[2024-01-21] MEDS: PYRIDOXINE HCL 50 MG TABLET 100 MG PO (09:17)
[2024-01-21] MEDS: APIXABAN 5 MG TABLET PO ×2 (09:17→16:49)
[2024-01-21] MEDS: GABAPENTIN 300 MG CAPSULE PO ×2 (09:17→16:49)
[2024-01-21] MEDS: CHOLECALCIFEROL 1,000 UNITS TABLET 1000 UNITS PO (09:17)
[2024-01-21] MEDS: FERROUS SULFATE 325 MG TABLET DR PO (09:17)
[2024-01-21] MEDS: LORATADINE 10 MG TABLET PO (09:18)
[2024-01-21] MEDS: METOPROLOL SUCCINATE EXT REL 50 MG TABCR PO (09:18)
[2024-01-21] MEDS: MAGNESIUM OXIDE 400 MG TABLET PO ×2 (09:18→16:49)
[2024-01-21] MEDS: ACIDOPHILUS PACKET 1 PKT PACKET PO ×3 (09:18→16:49)
[2024-01-21] MEDS: SPIRONOLACTONE 12.5 MG TABLET PO (09:19)
[2024-01-21] MEDS: ASPIRIN 81 MG ENTERIC TABLET PO (09:19)
[2024-01-21] MEDS: PANTOPRAZOLE 40 MG TABLET PO (09:19)
[2024-01-21] MEDS: ROFLUMILAST 500 MCG TABLET PO (09:19)
[2024-01-21] MEDS: BUMETANIDE 0.5 MG TABLET PO (09:20)
[2024-01-21] MEDS: FLUTICASONE PROPIONATE 0.05% NA SPR 16 GM BTL (*BKC) 2 SPRAY NASAL ×2 (09:20→16:49)
[2024-01-21] MEDS: FOLIC ACID 0.4 MG TABLET PO (09:20)
[2024-01-21] MEDS: ACETAMINOPHEN 325 MG TABLET 650 MG PO ×2 (09:34→22:46)
[2024-01-21] MEDS: AZITHROMYCIN 500 MG/NS 250 ML 500 MG/250 ML BAG 250 MG IVPB (20:47)
[2024-01-21] MEDS: TAMSULOSIN HCL 0.4 MG CAPSULE PO (20:48)
[2024-01-21] MEDS: BACLOFEN 10 MG TABLET BY MOUTH (20:48)
[2024-01-21 23:56] LABS: Vancomycin Trough 16.4 ug/mL (10.0-20.0)
[2024-01-22] VITALS (22 sets, daily range): BP systolic 116–142; BP diastolic 64–87; PULSE 16–107; RESP 18–22; TEMP 36.1–36.5; O2SAT 98–100
[2024-01-22] MEDS: VANCOMYCIN 1,500 MG/NS 500 ML 1,500 MG/500 ML BAG 250 MG IVPB (00:17)
[2024-01-22] MEDS: ALBUTEROL SULFATE NEB 2.5 MG/3 ML INH 5 MG INHALATION ×4 (02:22→20:49)
[2024-01-22] MEDS: IPRATROPIUM BR 0.02% INH SOLN 0.5 MG/2.5 ML VIAL INHALATION ×4 (02:22→20:49)
[2024-01-22 04:23] LABS: Hematocrit 33.3 % (42.0-52.0); Hemoglobin 9.8 g/dL (14.0-18.0); Mean Corpuscular HGB Conc 29.4 g/dl (32-36); Mean Corpuscular Volume 105.4 fl (80-100); Mean Platelet Volume 11.9 fl (7.4-10.4); Platelet Count Result 286 k/mm3 (150-375); Red Blood Count 3.16 M/mm3 (4.6-6.20); Red Cell Distribution Width 16.7 % (11.5-14.5); White Blood Count 11.6 K/mm3 (4.5-10.0)
[2024-01-22 04:51] LABS: Anion Gap 9 mmol/L (4-12); Blood Urea Nitrogen 53 mg/dL (9-20); Carbon Dioxide 24 mmol/L (22-30); Chloride 102 mmol/L (98-107); Estimated CRCL calculation 51 ml/min; Estimated Glomerular Filt Rate 49; Glucose 120 mg/dL (65-110); Magnesium 2.2 mg/dL (1.6-2.3); Potassium 4.2 mmol/L (3.4-5.0); Sodium 135 mmol/L (137-145)
[2024-01-22] MEDS: FLUTICASONE/UMECLIDIN/VILANTER 100-62.5-25 MCG ELLIPTA 1 PUFF INHALATION (07:27)
--- NOTE | 2024-01-22 08:49 | PM.IMPN ---
Progress Note: A&P Assessment and Plan (1) Acute on chronic respiratory failure with hypoxia and hypercapnia: Code(s): J96.21 - Acute and chronic respiratory failure with hypoxia; J96.22 - Acute and chronic respiratory failure with hypercapnia Status: Acute (2) CHF (congestive heart failure): Qualifiers: Heart failure chronicity: acute on chronic Heart failure type: unspecified Qualified Code(s): I50.9 - Heart failure, unspecified Code(s): I50.9 - Heart failure, unspecified Status: Acute (3) COPD (chronic obstructive pulmonary disease): Qualifiers: COPD type: COPD with acute lower respiratory infection Qualified Code(s): J44.0 - Chronic obstructive pulmonary disease with (acute) lower respiratory infection Code(s): J44.9 - Chronic obstructive pulmonary disease, unspecified Status: Acute (4) Pneumonia: Qualifiers: Laterality: bilateral Lung location: unspecified part of lung Pneumonia type: due to unspecified organism Qualified Code(s): J18.9 - Pneumonia, unspecified organism Code(s): J18.9 - Pneumonia, unspecified organism Status: Acute Plan H&P via Caprice Delgado DO on 01/19/24 Chief Complaint: Difficulty breathing for 2 days Narrative: 73-year-old male with a past medical history of atrial fibrillation, CHF with preserved ejection fraction, COPD, obstructive sleep apnea, coronary artery disease, non alcoholic cirrhosis, essential hypertension, MRSA bacteremia on chronic suppressive therapy since 2017 with doxycycline, recent hospitalization for strep G bacteremia October through November, who presented to the ER via EMS from home with shortness of breath for 2 or 3 days. Patient had been evaluated at the hydrometeorological technician office on yesterday and was told that he had pneumonia. He was satting 92% on his home oxygen of 2 L. patient was having such shortness of breath he tried 3 breathing treatments before EMS arrived at his home without significant improvement in symptoms. The patient's reports the patient has been restless especially at night and has had to sleep sitting upright. He has had a cough productive of white sputum. They checked his temperature is daily and he has been afebrile. They report that his blood pressures had been low a couple of weeks ago and his losartan was discontinued at that time. His is noticed a trend in his heart rate going upward his usual baseline heart rate used to be in the 66 70s. Now his heart rate has been more so in the upper 80s to low 100s. They have mention this to Dr. Lake. She does not think that the patient's legs have become more swollen than usual. His weight is actually down about 20 lb since his multiple hospitalizations in October through December. The patient has been on BiPAP therapy for many years with settings of 18/14 with 2 L bleed in. The patient follows with Reji Ritchie CANS VACUUM TESTER at the hydrometeorological technician office. Since his recent hospitalizations the patient has required increased BiPAP settings with his prior hospitalizations but his home BiPAP has not been adjusted. The patient had also been on a recent steroid taper for ulcerative colitis and is steroid taper finished within the last week. He has been on mesalamine which has been weaned down to once nightly dosing. His reports that his loose stools have stopped. Steroids were started in the late part of November after the patient had diarrhea to the point that he became hypotensive and dehydrated. She did not give him his dose of mesalamine last night due to and feeling generally ill. He denies any urinary symptoms. Pure wick catheter was placed in the ER. The patient did have mildly elevated white count in the ER and both chest x-ray and CT suggested combination multifocal pneumonia and CHF. The patient's BNP was elevated from baseline. Patient received 1 L of fluid in the ER but this was subsequently followed by 40 mg of Lasix. Patient had recent echocard
[2024-01-22] MEDS: CHOLECALCIFEROL 1,000 UNITS TABLET 1000 UNITS PO (09:07)
[2024-01-22] MEDS: GABAPENTIN 300 MG CAPSULE PO ×2 (09:07→16:38)
[2024-01-22] MEDS: METOPROLOL SUCCINATE EXT REL 50 MG TABCR PO (09:07)
[2024-01-22] MEDS: FERROUS SULFATE 325 MG TABLET DR PO (09:07)
[2024-01-22] MEDS: SPIRONOLACTONE 12.5 MG TABLET PO (09:07)
[2024-01-22] MEDS: PYRIDOXINE HCL 50 MG TABLET 100 MG PO (09:07)
[2024-01-22] MEDS: predniSONE 20 MG TABLET 60 MG PO (09:08)
[2024-01-22] MEDS: MAGNESIUM OXIDE 400 MG TABLET PO ×2 (09:08→16:38)
[2024-01-22] MEDS: ASPIRIN 81 MG ENTERIC TABLET PO (09:09)
[2024-01-22] MEDS: APIXABAN 5 MG TABLET PO ×2 (09:09→16:38)
[2024-01-22] MEDS: FOLIC ACID 0.4 MG TABLET PO (09:09)
[2024-01-22] MEDS: PANTOPRAZOLE 40 MG TABLET PO (09:09)
[2024-01-22] MEDS: BUMETANIDE 0.5 MG TABLET PO (09:09)
[2024-01-22] MEDS: ACIDOPHILUS PACKET 1 PKT PACKET PO ×3 (09:09→16:38)
[2024-01-22] MEDS: LORATADINE 10 MG TABLET PO (09:09)
[2024-01-22] MEDS: ROFLUMILAST 500 MCG TABLET PO (09:09)
[2024-01-22] MEDS: FLUTICASONE PROPIONATE 0.05% NA SPR 16 GM BTL (*BKC) 2 SPRAY NASAL ×2 (09:10→16:38)
[2024-01-22] MEDS: ACETAMINOPHEN 325 MG TABLET 650 MG PO ×2 (13:03→16:40)
--- NOTE | 2024-01-22 15:20 | ADMGEN ---
This patient, Mason Keys, was admitted to 3 [facility] Surg Room 329-01 @ 1520. Patient/family oriented to hospital policies and general routines including ID bracelet, bed and alarms, visiting hours, pain management, procedures, bathroom and other care routines, personal items, smoking policy, room service/diet, and visiting hours. Information on how to activate the Rapid Response Team has been discussed. Patient/Family are encouraged to report perceived risks to care and to ask questions if they do not understand what they are told or what they should do.
--- NOTE | 2024-01-22 15:44 | PC.NURSE ---
This patient, Mason Keys, [facility]24 at 1516. Personal belongings sent with patient. Report given to DONTAE Olivera. Appropriate documentation sent with patient.
[2024-01-22] MEDS: BACLOFEN 10 MG TABLET BY MOUTH (19:58)
[2024-01-22] MEDS: TAMSULOSIN HCL 0.4 MG CAPSULE PO (19:58)
[2024-01-22] MEDS: AZITHROMYCIN 500 MG/NS 250 ML 500 MG/250 ML BAG 250 MG IVPB (23:42)
[2024-01-23] VITALS (15 sets, daily range): BP systolic 112–127; BP diastolic 42–92; PULSE 79–108; RESP 16–22; TEMP 36.1–36.7; O2SAT 97–100
[2024-01-23] MEDS: VANCOMYCIN 1,500 MG/NS 500 ML 1,500 MG/500 ML BAG 250 MG IVPB (02:13)
[2024-01-23] MEDS: ALBUTEROL SULFATE NEB 2.5 MG/3 ML INH 5 MG INHALATION ×4 (03:27→20:36)
[2024-01-23] MEDS: IPRATROPIUM BR 0.02% INH SOLN 0.5 MG/2.5 ML VIAL INHALATION ×4 (03:28→20:36)
[2024-01-23] MEDS: FLUTICASONE/UMECLIDIN/VILANTER 100-62.5-25 MCG ELLIPTA 1 PUFF INHALATION (07:27)
[2024-01-23 07:34] LABS: Basophils Absolute Auto 0.1 K/mm3 (0.0-0.1); Basophils Percent Auto 0.5 % (0.2-1.2); Eosinophils Percent Auto 0.1 % (0-4.4); Hematocrit 33.3 % (42.0-52.0); Immature Granulocyte Absolute 0.56 K/mm3 (0.00-0.031); Immature Granulocyte Percent A 4.7 % (0-0.5); Lymphocytes Absolute Auto 0.89 K/mm3 (0.9-3.2); Lymphocytes Percent Auto 7.5 % (18.3-44.2); Mean Corpuscular Hemoglobin 31.2 pg (26-34); Mean Corpuscular Volume 103.7 fl (80-100); Mean Platelet Volume 12.1 fl (7.4-10.4); Monocytes Absolute Auto 1.1 K/mm3 (0.1-0.6); Monocytes Percent Auto 9.2 % (2.6-8.5); Neutrophils Absolute Auto 9.2 K/mm3 (1.3-6.7); Platelet Count Result 291 k/mm3 (150-375); Red Blood Count 3.21 M/mm3 (4.6-6.20); Red Cell Distribution Width 16.2 % (11.5-14.5); White Blood Count 11.8 K/mm3 (4.5-10.0)
[2024-01-23 07:57] LABS: Anion Gap 8 mmol/L (4-12); Blood Urea Nitrogen 46 mg/dL (9-20); Carbon Dioxide 29 mmol/L (22-30); Chloride 99 mmol/L (98-107); Estimated CRCL calculation 61 ml/min; Estimated Glomerular Filt Rate 59; Glucose 133 mg/dL (65-110); Magnesium 2.1 mg/dL (1.6-2.3); Potassium 4.7 mmol/L (3.4-5.0); Sodium 136 mmol/L (137-145)
[2024-01-23] MEDS: BUMETANIDE 0.5 MG TABLET PO (09:41)
[2024-01-23] MEDS: ACIDOPHILUS PACKET 1 PKT PACKET PO ×3 (09:42→16:25)
[2024-01-23] MEDS: ASPIRIN 81 MG ENTERIC TABLET PO (09:43)
[2024-01-23] MEDS: GABAPENTIN 300 MG CAPSULE PO ×2 (09:43→16:25)
[2024-01-23] MEDS: FOLIC ACID 0.4 MG TABLET PO (09:43)
[2024-01-23] MEDS: LORATADINE 10 MG TABLET PO (09:43)
[2024-01-23] MEDS: SPIRONOLACTONE 12.5 MG TABLET PO (09:43)
[2024-01-23] MEDS: FERROUS SULFATE 325 MG TABLET DR PO (09:44)
[2024-01-23] MEDS: predniSONE 20 MG TABLET 60 MG PO (09:44)
[2024-01-23] MEDS: MAGNESIUM OXIDE 400 MG TABLET PO ×2 (09:44→16:26)
[2024-01-23] MEDS: METOPROLOL SUCCINATE EXT REL 50 MG TABCR PO (09:44)
[2024-01-23] MEDS: PANTOPRAZOLE 40 MG TABLET PO (09:45)
[2024-01-23] MEDS: PYRIDOXINE HCL 50 MG TABLET 100 MG PO (09:45)
[2024-01-23] MEDS: APIXABAN 5 MG TABLET PO ×2 (09:45→16:26)
[2024-01-23] MEDS: ROFLUMILAST 500 MCG TABLET PO (09:46)
[2024-01-23] MEDS: FLUTICASONE PROPIONATE 0.05% NA SPR 16 GM BTL (*BKC) 2 SPRAY NASAL ×2 (09:48→16:26)
[2024-01-23] MEDS: ACETAMINOPHEN 325 MG TABLET 650 MG PO ×3 (09:49→21:42)
[2024-01-23 11:53] LABS: Procalcitonin 0.2 ng/mL
--- NOTE | 2024-01-23 16:27 | P.PNIM_ITS ---
Progress Note: A&P Assessment and Plan (1) Acute on chronic respiratory failure with hypoxia and hypercapnia: Code(s): J96.21 - Acute and chronic respiratory failure with hypoxia; J96.22 - Acute and chronic respiratory failure with hypercapnia Status: Acute (2) CHF (congestive heart failure): Qualifiers: Heart failure chronicity: acute on chronic Heart failure type: unspecified Qualified Code(s): I50.9 - Heart failure, unspecified Code(s): I50.9 - Heart failure, unspecified Status: Acute (3) COPD (chronic obstructive pulmonary disease): Qualifiers: COPD type: COPD with acute lower respiratory infection Qualified Code(s): J44.0 - Chronic obstructive pulmonary disease with (acute) lower respiratory infection Code(s): J44.9 - Chronic obstructive pulmonary disease, unspecified Status: Acute (4) Pneumonia: Qualifiers: Laterality: bilateral Lung location: unspecified part of lung Pneumonia type: due to unspecified organism Qualified Code(s): J18.9 - Pneumonia, unspecified organism Code(s): J18.9 - Pneumonia, unspecified organism Status: Acute Plan H&P via Caprice Delgado DO on 01/19/24 Chief Complaint: Difficulty breathing for 2 days Narrative: 73-year-old male with a past medical history of atrial fibrillation, CHF with preserved ejection fraction, COPD, obstructive sleep apnea, coronary artery disease, non alcoholic cirrhosis, essential hypertension, MRSA bacteremia on chronic suppressive therapy since 2017 with doxycycline, recent hospitalization for strep G bacteremia October through November, who presented to the ER via EMS from home with shortness of breath for 2 or 3 days. 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 He was satting 92% on his home oxygen of 2 L. patient was having such shortness of breath he tried 3 breathing treatments before EMS arrived at his home without significant improvement in symptoms. The patient's reports the patient has been restless especially at night and has had to sleep sitting upright. He has had a cough productive of white sputum. They checked his temperature is daily and he has been afebrile. They report that his blood pressures had been low a couple of weeks ago and his losartan was discontinued at that time. His is noticed a trend in his heart rate going upward his usual baseline heart rate used to be in the 66 70s. Now his heart rate has been more so in the upper 80s to low 100s. They have mention this to Dr. Lake. She does not think that the patient's legs have become more swollen than usual. His weight is actually down about 20 lb since his multiple hospitalizations in October through December. The patient has been on BiPAP therapy for many years with settings of 18/14 with 2 L bleed in. The patient follows with Reji Ritchie STAMPING MILL TENDER at the scuba dive training instructor office. Since his recent hospitalizations the patient has required increased BiPAP settings with his prior hospitalizations but his home BiPAP has not been adjusted. The patient had also been on a recent steroid taper for ulcerative colitis and is steroid taper finished within the last week. He has been on mesalamine which has been weaned down to once nightly dosing. His reports that his loose stools have stopped. Steroids were started in the late part of November after the patient had diarrhea to the point that he became hypotensive and dehydrated. She did not give him his dose of mesalamine last night due to and feeling generally ill. He denies any urinary symptoms. Pure wick catheter was placed in the ER. The patient did have mild
[2024-01-23] MEDS: LINEZOLID 600 MG TABLET PO (21:38)
[2024-01-23] MEDS: BACLOFEN 10 MG TABLET BY MOUTH (21:38)
[2024-01-23] MEDS: CEFDINIR 300 MG CAPSULE PO (21:38)
[2024-01-23] MEDS: TAMSULOSIN HCL 0.4 MG CAPSULE PO (21:38)
[2024-01-23] MEDS: AZITHROMYCIN 250 MG TABLET 500 MG PO (21:42)
[2024-01-24] VITALS (10 sets, daily range): PULSE 90–107; RESP 20–24; O2SAT 98–100
[2024-01-24] MEDS: ALBUTEROL SULFATE NEB 2.5 MG/3 ML INH 5 MG INHALATION ×3 (02:42→13:59)
[2024-01-24] MEDS: IPRATROPIUM BR 0.02% INH SOLN 0.5 MG/2.5 ML VIAL INHALATION ×3 (02:42→14:00)
[2024-01-24 07:08] LABS: Basophils Absolute Auto 0.1 K/mm3 (0.0-0.1); Basophils Percent Auto 0.5 % (0.2-1.2); Eosinophils Percent Auto 0.1 % (0-4.4); Hematocrit 33.3 % (42.0-52.0); Immature Granulocyte Absolute 1.01 K/mm3 (0.00-0.031); Immature Granulocyte Percent A 7.5 % (0-0.5); Lymphocytes Absolute Auto 1.15 K/mm3 (0.9-3.2); Lymphocytes Percent Auto 8.5 % (18.3-44.2); Mean Corpuscular Hemoglobin 31.1 pg (26-34); Mean Corpuscular Volume 103.4 fl (80-100); Mean Platelet Volume 11.9 fl (7.4-10.4); Monocytes Absolute Auto 1.3 K/mm3 (0.1-0.6); Monocytes Percent Auto 9.8 % (2.6-8.5); Neutrophils Percent Auto 73.6 % (45.5-73.1); Platelet Count Result 292 k/mm3 (150-375); Red Blood Count 3.22 M/mm3 (4.6-6.20); Red Cell Distribution Width 16.1 % (11.5-14.5); White Blood Count 13.5 K/mm3 (4.5-10.0)
[2024-01-24 07:30] LABS: Anion Gap 6 mmol/L (4-12); Blood Urea Nitrogen 42 mg/dL (9-20); Calcium 9.1 mg/dL (8.4-10.2); Carbon Dioxide 32 mmol/L (22-30); Chloride 99 mmol/L (98-107); Estimated CRCL calculation 57 ml/min; Estimated Glomerular Filt Rate 54; Glucose 149 mg/dL (65-110); Magnesium 2.2 mg/dL (1.6-2.3); Potassium 4.7 mmol/L (3.4-5.0); Sodium 137 mmol/L (137-145)
[2024-01-24 08:01] LABS: Procalcitonin 0.3 ng/mL
[2024-01-24] MEDS: METOPROLOL SUCCINATE EXT REL 50 MG TABCR PO (08:17)
[2024-01-24] MEDS: FOLIC ACID 0.4 MG TABLET PO (08:17)
[2024-01-24] MEDS: APIXABAN 5 MG TABLET PO (08:17)
[2024-01-24] MEDS: ROFLUMILAST 500 MCG TABLET PO (08:17)
[2024-01-24] MEDS: CHOLECALCIFEROL 1,000 UNITS TABLET 1000 UNITS PO (08:17)
[2024-01-24] MEDS: PYRIDOXINE HCL 50 MG TABLET 100 MG PO (08:17)
[2024-01-24] MEDS: LINEZOLID 600 MG TABLET PO (08:17)
[2024-01-24] MEDS: BUMETANIDE 0.5 MG TABLET PO (08:18)
[2024-01-24] MEDS: CEFDINIR 300 MG CAPSULE PO (08:18)
[2024-01-24] MEDS: FERROUS SULFATE 325 MG TABLET DR PO (08:18)
[2024-01-24] MEDS: MAGNESIUM OXIDE 400 MG TABLET PO (08:18)
[2024-01-24] MEDS: SPIRONOLACTONE 12.5 MG TABLET PO (08:18)
[2024-01-24] MEDS: PANTOPRAZOLE 40 MG TABLET PO (08:18)
[2024-01-24] MEDS: LORATADINE 10 MG TABLET PO (08:18)
[2024-01-24] MEDS: predniSONE 20 MG TABLET 60 MG PO (08:18)
[2024-01-24] MEDS: FLUTICASONE PROPIONATE 0.05% NA SPR 16 GM BTL (*BKC) 2 SPRAY NASAL (08:19)
[2024-01-24] MEDS: ACIDOPHILUS PACKET 1 PKT PACKET PO ×2 (08:19→12:13)
[2024-01-24] MEDS: GABAPENTIN 300 MG CAPSULE PO (08:19)
[2024-01-24] MEDS: ASPIRIN 81 MG ENTERIC TABLET PO (08:19)
--- NOTE | 2024-01-24 08:25 | PCOTNOTE ---
Increasing frequency of OT treatment due to pt. appropriateness and need due to acute illness
[2024-01-24] MEDS: FLUTICASONE/UMECLIDIN/VILANTER 100-62.5-25 MCG ELLIPTA 1 PUFF INHALATION (09:10)
--- NOTE | 2024-01-24 13:06 | PM.DS ---
DS: Admitting Diagnosis Discharge Date January 24, 2024 Admitting Diagnosis Respiratory distress DS: Discharge Diagnosis Discharge Diagnosis (1) Acute on chronic respiratory failure with hypoxia and hypercapnia: Code(s): J96.21 - Acute and chronic respiratory failure with hypoxia; J96.22 - Acute and chronic respiratory failure with hypercapnia Status: Acute (2) CHF (congestive heart failure): Qualifiers: Heart failure chronicity: acute on chronic Heart failure type: unspecified Qualified Code(s): I50.9 - Heart failure, unspecified Code(s): I50.9 - Heart failure, unspecified Status: Acute (3) COPD (chronic obstructive pulmonary disease): Qualifiers: COPD type: COPD with acute lower respiratory infection Qualified Code(s): J44.0 - Chronic obstructive pulmonary disease with (acute) lower respiratory infection Code(s): J44.9 - Chronic obstructive pulmonary disease, unspecified Status: Acute (4) Pneumonia: Qualifiers: Laterality: bilateral Lung location: unspecified part of lung Pneumonia type: due to unspecified organism Qualified Code(s): J18.9 - Pneumonia, unspecified organism Code(s): J18.9 - Pneumonia, unspecified organism Status: Acute DS: Summary Hospital Course Hospital Course: 73-year-old male with a past medical history of atrial fibrillation, CHF with preserved ejection fraction, COPD, obstructive sleep apnea, coronary artery disease, non alcoholic cirrhosis, essential hypertension, MRSA bacteremia on chronic suppressive therapy since 2017 with doxycycline, recent hospitalization for strep G bacteremia October through November, who presented to the ER via EMS from home with shortness of breath for 2 or 3 days. 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 He was satting 92% on his home oxygen of 2 L. patient was having such shortness of breath he tried 3 breathing treatments before EMS arrived at his home without significant improvement in symptoms. The patient's reports the patient has been restless especially at night and has had to sleep sitting upright. He has had a cough productive of white sputum. They checked his temperature is daily and he has been afebrile. They report that his blood pressures had been low a couple of weeks ago and his losartan was discontinued at that time. His is noticed a trend in his heart rate going upward his usual baseline heart rate used to be in the 66 70s. Now his heart rate has been more so in the upper 80s to low 100s. They have mention this to Dr. Lake. She does not think that the patient's legs have become more swollen than usual. His weight is actually down about 20 lb since his multiple hospitalizations in October through December. The patient has been on BiPAP therapy for many years with settings of 18/14 with 2 L bleed in. The patient follows with Reji Ritchie PROCESS EXPERT at the licensing registration examiner office. Since his recent hospitalizations the patient has required increased BiPAP settings with his prior hospitalizations but his home BiPAP has not been adjusted. The patient had also been on a recent steroid taper for ulcerative colitis and is steroid taper finished within the last week. He has been on mesalamine which has been weaned down to once nightly dosing. His reports that his loose stools have stopped. Steroids were started in the late part of November after the patient had diarrhea to the point that he became hypotensive and dehydrated. She did not give him his dose of mesalamine last night due to and feeling generally ill. He denies any urinary symptoms. Pure wick catheter was placed in the ER. The patient did have mildly elevated white count in the ER and both chest x-ray and CT suggested combination multifocal pneumonia and CHF. The patient's BNP was elevated from baseline. Patient received 1 L of fluid in the ER but this was subsequently followed b
[2024-01-24 18:03] LABS: Pneumococcal Antigen Urine NOT DETECTED
[2024-01-25 04:07] LABS: Legionella pneumophila Ag Ur NOT DETECTED
== END 2024-01-24 14:50 | disposition home health service (06) | DRG 189 ==
LOC: ANHED 20:26 → ANHIMU 22:08 → ANH3MEDSUR 01-22 15:09
PROVIDERS: Admitting Provider Internal Medicine; Emergency Provider Emergency Medicine; PCP Emergency Medicine; Visit Provider General Practice
DX: J96.21 Acute and chronic respiratory failure with hypoxia (principal); J18.9 Pneumonia, unspecified organism; J44.0 Chronic obstructive pulmonary disease with (acute) lower respiratory infection; I13.0 Hypertensive heart and chronic kidney disease with heart failure and stage 1 through stage 4 chronic kidney disease, or unspecified chronic kidney disease; I50.32 Chronic diastolic (congestive) heart failure; R78.81 Bacteremia; K51.90 Ulcerative colitis, unspecified, without complications; J96.22 Acute and chronic respiratory failure with hypercapnia; D50.9 Iron deficiency anemia, unspecified; G47.33 Obstructive sleep apnea (adult) (pediatric); I48.91 Unspecified atrial fibrillation; I25.10 Atherosclerotic heart disease of native coronary artery without angina pectoris; K74.60 Unspecified cirrhosis of liver; N40.0 Benign prostatic hyperplasia without lower urinary tract symptoms; K21.9 Gastro-esophageal reflux disease without esophagitis; I48.0 Paroxysmal atrial fibrillation; N18.9 Chronic kidney disease, unspecified; Z86.73 Personal history of transient ischemic attack (TIA), and cerebral infarction without residual deficits; Z22.322 Carrier or suspected carrier of Methicillin resistant Staphylococcus aureus; Z99.81 Dependence on supplemental oxygen; Z79.01 Long term (current) use of anticoagulants; Z86.718 Personal history of other venous thrombosis and embolism; Z98.41 Cataract extraction status, right eye; Z98.42 Cataract extraction status, left eye; Z96.1 Presence of intraocular lens; Z96.643 Presence of artificial hip joint, bilateral; Z87.891 Personal history of nicotine dependence; Z88.0 Allergy status to penicillin
CPT/HCPCS: 36415; 36600; 71045; 71250; 80048; 80053; 80202; 81001; 82805; 82948; 83605; 83690; 83735; 83880; 84100; 84145; 84484; 85025; 85027; 85610; 85730; 87040; 87449; 87637; 87641; 87899; 93005; 94002; 94003; 94640; 96361; 96365; 96367; 96375; 97161; 97165; 97530; 97535; 99285; A9270; J0456; J0696; J1100; J1940; J2919; J3370; J3475; J7030; J7512

== ENCOUNTER 2024-02-09 16:35 | Emergency (ER) | payer MEDICARE, SELFPAY ==
--- NOTE | ~2024-02-09 | XR_ITS ---
EXAMINATION: XR knee LT 3V DATE: 02/09/2024 23:50 INDICATION: Left knee swelling. TECHNIQUE: 3 views of left knee were obtained. COMPARISON: None. FINDINGS: Bone alignment is normal. No fracture. There is severe osteoarthritis of medial and patello femoral compartments and moderate osteoarthritis of lateral compartment. There is chondrocalcinosis o f the menisci. There is a small knee joint effusion. IMPRESSION: 1. Severe left knee osteoarthritis. 2. Small left knee joint effusion. Reviewed, dictated and finalized at location A.
--- NOTE | ~2024-02-09 | US_ITS ---
EXAMINATION: US venous doppler [facility] DATE: 02/09/2024 18:44 INDICATION: Left lower limb swelling. TECHNIQUE: Grayscale ultrasound images without and with compression and Doppler ultrasound images of the left lower extremity veins were obtained. COMPARISON: Ultrasound 10/11/2023 FINDINGS: The visualized portions of left common femoral vein, profunda (deep) femoral vein, femoral vein, popl iteal vein, peroneal veins, posterior tibial veins, and greater saphenous vein outflow are patent. IMPRESSION: 1. No deep venous thrombosis. Reviewed, dictated and finalized at location A.
[2024-02-09 16:37] VITALS: BP 128/76; PULSE 71; RESP 16; TEMP 36.3; O2SAT 99
--- NOTE | 2024-02-09 17:28 | ED.EXTPRO ---
HPI - Extremity Problem General Chief complaint: Extremity Problem,Nontraumatic <Zbigniew Pollock PA-C - Last Filed: 02/09/24 17:35> Stated complaint: left leg swollen <Zbigniew Pollock PA-C - Last Filed: 02/09/24 17:35> Time Seen by Provider: 02/09/24 17:27 <Zbigniew Pollock PA-C - Last Filed: 02/09/24 17:35> Focused HPI: This is a 73-year-old male with PMH of AFib chronically anticoagulated on Eliquis who presents to the ED for chief complaint of left lower extremity pain and swelling over the past couple of days. He has had DVT on the right leg in the past. Endorses swelling all the way up to knee and thigh with pain to the inner thigh. Denies chest pain, shortness of breath, fevers, chills, nausea, vomiting. GENERAL: Well-appearing, well-nourished, and in no acute distress. HEAD: Normocephalic, atraumatic. CHEST: Clear to auscultation. No respiratory distress. HEART: Regular rate and rhythm. MSK: Bilateral lower extremity dependent rubor noted. There is mild erythema to the left medial thigh and L>R swelling to the knee and thigh. NEURO: Alert and oriented x3. Patient screened in triage and initial orders placed. Additional care and disposition to be based upon diagnostic testing and treatment. <Zbigniew Pollock PA-C - Last Filed: 02/09/24 17:35> Source: patient <Zbigniew Pollock PA-C - Last Filed: 02/09/24 17:35> Mode of arrival: ambulatory <Zbigniew Pollock PA-C - Last Filed: 02/09/24 17:35> Limitations: no limitations <Zbigniew Pollock PA-C - Last Filed: 02/09/24 17:35> History of Present Illness HPI Narrative: I agree with the statement/assessment of Zbigniew Rivera PA-C <Sirisha Ram APRN - Last Filed: 02/10/24 01:01> MD Complaint: extremity pain and extremity swelling <Sirisha Ram APRN - Last Filed: 02/10/24 01:01> Pain Consistency: intermittent <Sirisha Ram APRN - Last Filed: 02/10/24 01:01> Location: left and lower extremity <Sirisha Ram CORE EXTRUDER - Last Filed: 02/10/24 01:01> Radiation: none <Sirisha Ram CORE EXTRUDER - Last Filed: 02/10/24 01:01> Relieving factors: nothing <Sirisha Ram CORE EXTRUDER - Last Filed: 02/10/24 01:01> Associated symptoms: denies other symptoms <Sirisha Ram CORE EXTRUDER - Last Filed: 02/10/24 01:01> Related Data Home medications: Home Medications Medication Instructions Recorded Confirmed ferrous sulfate 324 mg (65 mg 324 mg PO DAILY 04/05/19 02/02/24 iron) tablet,delayed release tamsulosin 0.4 mg capsule (Flomax) 0.4 mg PO HS 04/05/19 02/02/24 aspirin 81 mg tablet,delayed 81 mg PO DAILY 05/21/19 02/02/24 release cetirizine 10 mg tablet 10 mg PO DAILY 08/04/19 02/02/24 acetaminophen 325 mg capsule 650 mg PO Q4H PRN Pain 03/17/20 02/02/24 bumetanide 0.5 mg tablet 0.5 mg PO BID 11/17/20 02/02/24 magnesium oxide 400 mg PO BID 03/04/21 02/02/24 pyridoxine (vitamin B6) 100 mg 100 mg PO DAILY 03/04/21 02/02/24 tablet cholecalciferol (vitamin D3) 25 25 mcg PO DAILY 03/03/23 02/02/24 mcg (1,000 unit) capsule folic acid 400 mcg tablet 0.4 mg PO DAILY 08/23/23 02/02/24 Lactobacillus acidophilus 1 tsp PO TID 11/04/23 02/02/24 omeprazole 40 mg capsule,delayed 40 mg PO DAILY 12/27/23 02/02/24 release doxycycline hyclate 100 mg capsule 100 mg PO DAILY 01/19/24 02/02/24 fluticasone propionate 50 See Rx Instructions .Route .COMPLEX 01/19/24 02/02/24 mcg/actuation nasal spray,suspension (Allergy Relief (fluticasone)) gabapentin 300 mg capsule 300 mg PO BID 01/19/24 02/02/24 spironolactone 25 mg tablet 12.5 mg PO DAILY 01/19/24 02/02/24 <Zbigniew Pollock PA-C - Last Filed: 02/09/24 17:35> Allergies/Adverse reactions: Allergies Allergy/AdvReac Type Severity Reaction Status Date / Time clindamycin Allergy Intermediate Rash Verified 02/09/24 21:33 levofloxacin Allergy Intermediate Swelling Verified 02/09/24 21:33 of the Eye Penicillins Allergy Intermediate Cassandra Maradiaga
[2024-02-09 17:45] LABS: Basophils Absolute Auto 0.1 K/mm3 (0.0-0.1); Basophils Percent Auto 0.5 % (0.2-1.2); Eosinophils Absolute Auto 0.9 K/mm3 (0-0.3); Eosinophils Percent Auto 8.5 % (0-4.4); Hematocrit 31.7 % (42.0-52.0); Hemoglobin 9.6 g/dL (14.0-18.0); Immature Granulocyte Absolute 0.06 K/mm3 (0.00-0.031); Immature Granulocyte Percent A 0.6 % (0-0.5); Lymphocytes Absolute Auto 0.82 K/mm3 (0.9-3.2); Mean Corpuscular HGB Conc 30.3 g/dl (32-36); Mean Corpuscular Volume 102.3 fl (80-100); Mean Platelet Volume 12.2 fl (7.4-10.4); Monocytes Absolute Auto 0.9 K/mm3 (0.1-0.6); Monocytes Percent Auto 9.1 % (2.6-8.5); Neutrophils Absolute Auto 7.6 K/mm3 (1.3-6.7); Neutrophils Percent Auto 73.3 % (45.5-73.1); Platelet Count Result 137 k/mm3 (150-375); Red Cell Distribution Width 16.6 % (11.5-14.5); White Blood Count 10.3 K/mm3 (4.5-10.0)
[2024-02-09 17:53] LABS: Alanine Aminotransferase 20 U/L (6-50); Albumin Level 3.6 g/dL (3.5-5.1); Alkaline Phosphatase 110 U/L (38-126); Anion Gap 7 mmol/L (4-12); Aspartate Amino Transferase 22 U/L (17-59); Bilirubin,Total 0.4 mg/dL (0.2-1.3); Blood Urea Nitrogen 30 mg/dL (9-20); Carbon Dioxide 33 mmol/L (22-30); Chloride 97 mmol/L (98-107); Estimated CRCL calculation 52 ml/min; Estimated Glomerular Filt Rate 49; Glucose 109 mg/dL (65-110); Potassium 4.4 mmol/L (3.4-5.0); Sodium 137 mmol/L (137-145)
[2024-02-09 17:56] LABS: INR 1.2
[2024-02-09 21:30] VITALS: BP 127/63; PULSE 78; RESP 20; O2SAT 100
[2024-02-09 21:33] VITALS: O2SAT 97
[2024-02-09] MEDS: IPRATROPIUM 0.5 MG/ALBUTEROL SULFATE 2.5 MG AMPUL.NEB 3 ML INHALATION (22:58)
[2024-02-09 23:02] VITALS: PULSE 82; RESP 25
[2024-02-09 23:11] VITALS: PULSE 84; RESP 18
[2024-02-09 23:29] LABS: Lactic Acid Reflex 1.1 mmol/L (0.7-2.0)
[2024-02-09 23:32] LABS: CRP 2.6 mg/dL (<1.0); Partial Thromboplastin Time 31.5 Seconds (22.3-36.8)
[2024-02-10 01:30] VITALS: BP 130/60; PULSE 83; RESP 19; O2SAT 99
== END 2024-02-10 01:55 | disposition home or self-care (01) ==
PROVIDERS: Physician Assistant; Emergency Provider Registered Nurse; PCP Emergency Medicine
DX: R60.0 Localized edema (principal); M25.462 Effusion, left knee; I48.91 Unspecified atrial fibrillation; Z79.01 Long term (current) use of anticoagulants; J44.9 Chronic obstructive pulmonary disease, unspecified; N18.9 Chronic kidney disease, unspecified; I50.32 Chronic diastolic (congestive) heart failure; K21.9 Gastro-esophageal reflux disease without esophagitis; E66.9 Obesity, unspecified; Z68.34 Body mass index [BMI] 34.0-34.9, adult; G47.33 Obstructive sleep apnea (adult) (pediatric); Z87.891 Personal history of nicotine dependence
CPT/HCPCS: 36415; 73562; 80053; 83605; 85025; 85610; 85730; 86140; 87040; 93971; 94640; 99284

== ENCOUNTER 2024-04-19 01:10 | Day surgery (SDC) | payer MEDICARE, SELFPAY ==
--- NOTE | 2024-04-06 13:35 | PC.NURSE ---
Report to the Outpatient Waiting Room, entrance under the green pavilion located off [facility], at time _6 AM on date 04/19/24 . Planned Procedure Time: 7:30 AM .? Time changes happen often and if your time is changed the preop area will call you the afternoon before. - You and your visitor will be asked to self-screen and do not enter if you have any COVID symptoms. Please call surgeon if you need to reschedule. - A mask is optional within the hospital at this time. Patients may have clear liquids (water, carbonated beverages, clear teas, apple juice) until 3 hours prior to surgery( 4:30 AM) with a maximum of 20 ounces. - No food from midnight until time of surgery and no smoking - Infants may have breast milk until 4 hours before surgery, infant formula 6 hours prior to surgery. - Children will be allowed to drink immediately following surgery.? If applicable, please bring a bottle or sippy cup to assist with drinking. Juice, water, soda, and popsicles are readily available.? For infants on formula, please bring formula the day of surgery.? Pacifiers are allowed. Take only the following medications with a SIP of water on the morning of surgery: _NEBULIZER,BREZTRI INHALER,DOXYCYCLINE,GABAPENTIN,METOPROLOL DO NOT STOP ANY OF YOUR OTHER PRESCRIPTION MEDICATIONS PRIOR TO SURGERY EXCEPT THE FOLLOWING Medications to discontinue per physician _WIFE STATES HOLD ELIQUIS.LAST DOSE 04/15/24 AND HOLD ASPIRIN LAST DOSE 04/11/[address] HOPKINS. HOLD ALL VITAMINS AND SUPPLEMENTS 3 DAYS PRE OP.LAST DOSE 04/15/24 Please no make-up, nail amharic, hairspray, perfume, deodorant, or body powder the day of surgery.? No jewelry (including any body piercings) or valuables the day of surgery, leave them at home.? Please take a shower or bath the night before, or the morning of, surgery with an antibacterial soap.? Wear comfortable, loose fitting clothing.? Children are encouraged to wear pajamas. - Jewelry must be removed prior to entering the operating room.? Rings and piercings that are not removed may be cut off. - The hospital will not accept responsibility for valuables.? - Please leave all valuables, including medications, at home the day of surgery. If you are going home after surgery, a licensed mobile lounge driver must drive you home.? - NO public transportation without another adult if you receive anesthesia. - We recommend that an adult stay with you for 24 hours following discharge. - We also recommend that you do not drive, make important decision, drink alcoholic beverages, or take any drugs that were not prescribed by your health care provider for at least 24 hours after your discharge time. Follow any additional instructions given to you from your surgeon. Telephone instructions given to _PATIENT AND CYNTHIA and asked if any additional questions and then verbalized understanding. Patient advised to call surgeon office or pre surgery nurse liaison [phone] if any additional questions.
[2024-04-06 13:49] VITALS: BMI 34.6
[2024-04-19] VITALS (9 sets, daily range): BP systolic 100–130; BP diastolic 62–75; PULSE 70–79; RESP 16–20; TEMP 36.2–36.4; O2SAT 96–100; BMI 33.5
--- NOTE | 2024-04-19 05:54 | WPDHPUPDATE1 ---
History and Physical Update Update Date/Time: 04/19/24 05:54 History and Physical has been reviewed, including an updated exam of the patient. There are NO changes in the patient's condition. Risks, benefits, and alternatives have been discussed and questions answered. Patient agrees to proceed with procedure.
[2024-04-19] MEDS: LACTATED RINGERS 1,000 ML 30 ML IV CONT (06:55)
[2024-04-19] MEDS: LIDOCAINE HCL 2% GEL UROJET 10 ML PKG MUCOUS MEM (07:08)
--- NOTE | 2024-04-19 07:15 | WPDANESEPPF ---
Anes - Initial Pre Proc Eval Procedure: Operation Date: 04/19/24 07:30 Proposed Procedures p Circumcision, - Larry Brown MD s Flexible Cystoscopy - Larry Brown MD Date/Time: 04/19/24 07:15 Surgeon: Larry Brown MD Pre Op Diagnosis: phimosis Patient Data Age: 73 Gender: M Height: 1.8 m Weight: 109.1 kg Last Vital Signs Temp 97.2 F L 04/19/24 06:00 Pulse 79 04/19/24 06:00 Resp 20 04/19/24 06:00 BP 130/72 04/19/24 06:00 Pulse Ox 98 04/19/24 06:00 O2 Del Method Nasal Cannula 04/19/24 06:00 O2 Flow Rate 2 04/19/24 06:00 Allergies Allergy/AdvReac Type Severity Reaction Status Date / Time clindamycin Allergy Intermediate Rash Verified 04/19/24 07:06 levofloxacin Allergy Intermediate Swelling Verified 04/19/24 07:06 of the Eye Penicillins Allergy Intermediate Hives Verified 04/19/24 07:06 scopolamine Allergy Mild Hallucinati Verified 04/19/24 07:06 ng tobramycin Allergy Mild EYE REDNESS Verified 04/19/24 07:06 pepper (genus Capsicum) AdvReac Intermediate Nausea and Verified 04/19/24 07:06 Vomiting dust mites Allergy Swelling Uncoded 04/19/24 07:06 cats AdvReac Mild REDNESS OF Uncoded 04/19/24 07:06 THE EYES/WATERING Home Medications Medication Instructions Recorded Confirmed Type ferrous sulfate 324 mg (65 mg 324 mg PO DAILY 04/05/19 04/06/24 History iron) tablet,delayed release tamsulosin 0.4 mg capsule (Flomax) 0.4 mg PO HS 04/05/19 04/06/24 History aspirin 81 mg tablet,delayed 81 mg PO DAILY 05/21/19 04/06/24 History release cetirizine 10 mg tablet 10 mg PO DAILY 08/04/19 04/06/24 History acetaminophen 325 mg capsule 650 mg PO Q4H PRN Pain 03/17/20 04/06/24 History bumetanide 0.5 mg tablet 0.5 mg PO BID 11/17/20 04/06/24 History inhalational spacing device #10 ea 11/17/20 02/15/24 Rx (Aerochamber MV spacer) magnesium oxide 400 mg PO BID 03/04/21 04/06/24 History pyridoxine (vitamin B6) 100 mg 100 mg PO DAILY 03/04/21 04/06/24 History tablet cholecalciferol (vitamin D3) 25 25 mcg PO DAILY 03/03/23 04/06/24 History mcg (1,000 unit) capsule folic acid 400 mcg tablet 0.4 mg PO DAILY 08/23/23 04/06/24 History nebulizer accessories #3 ea 08/23/23 02/15/24 Rx baclofen 10 mg tablet See Rx Instructions .Route 11/11/23 04/06/24 Rx .COMPLEX #90 tabs metoprolol succinate 50 mg 50 mg PO DAILY #180 tabs 12/05/23 04/06/24 Rx tablet,extended release 24 hr omeprazole 40 mg capsule,delayed 40 mg PO DAILY 12/27/23 04/06/24 History release Breztri Aerosphere 160 2 inh inhalation Q12H #10.7 grams 01/18/24 04/06/24 Rx mcg-9mcg-4.8mcg/actuation HFA aerosol inhaler (pyxolveirq-lvgyfyci-slwguvcsmt) doxycycline hyclate 100 mg capsule 100 mg PO DAILY 01/19/24 04/06/24 History fluticasone propionate 50 See Rx Instructions .Route .COMPLEX 01/19/24 04/06/24 History mcg/actuation nasal spray,suspension (Allergy Relief (fluticasone)) gabapentin 300 mg capsule 300 mg PO BID 01/19/24 04/06/24 History spironolactone 25 mg tablet 12.5 mg PO DAILY 01/19/24 04/06/24 History mesalamine 4 gram/60 mL enema 4 g RECTAL PRN PRN Diarrhea 02/15/24 04/06/24 History ([place]asa) Lactobacillus acidophilus 100 mg PO DAILY 04/06/24 04/06/24 History albuterol sulfate 2.5 mg/3 mL 2.5 mg (3 mL) inhalation QID PRN 04/09/24 Rx (0.083 %) solution for nebulization shortness of breath or wheezing #360 mL apixaban 5 mg tablet (Eliquis) 5 mg PO BID #180 tabs 04/09/24 Rx roflumilast 500 mcg tablet 500 mcg PO DAILY 90 days #90 tabs 04/09/24 Rx (Daliresp) Patient hx anesthesia problems: none Family hx anesthesia problems: none Results Review: All pre-operative results and documents have been reviewed as part of the pre-operative evaluation. [facility] Past Medical History Medical History Benign prostatic hyperplasia Cerebrovascular accident Chronic anticoagulation Chronic diastolic heart failure Echocardiogram 10/2023 demonstrated EF of 60-65% grade 1 diastolic dysfunction, atrial fibrillation, by atrial enlargement difficult study Chronic kidney disease With baseline creatinine around 1.3 Chronic obstructive pulmonary disease Chronic venous stasis dermatitis of both lower extremities Cirrhosis Non alcoholic Deep venous thrombosis Duodenal ulcer Eczema Gastroesophageal reflux disease Iron (Fe) deficiency anemia MRSA (methicillin resistant Staphylococcus aureus) infection The patient had a spinal abscess L1-L2 complicated was septicemia and then had 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 On long-term doxycycline. Obesity (BMI 30-39.9) Obstructive sleep apnea treated with BiPAP with bleed in oxygen of 2 L Paroxysmal atrial fibrillation Pneumothorax on left Surgical History Surgical History History of back surgery History of bilateral cataract extraction With bilateral lens implants History of bilateral hip replacements History of colonoscopy with polypectomy History of revision of total replacement of hip joint History of tracheostomy Status post excision of lipoma Neck. Family History Family History Mother Family history of cardiovascular disease Family history of coronary artery disease Father Family history of liver disease Sibling Hypertension Cerebrovascular accident Chronic obstructive pulmonary disease Social History Social History Social History: Surrogate medical decision maker: Trinity Keys (Cathy), spouse. Code status: Full code. Smoking packs per day: 1 Smoking cigarettes per day: 20.0 Years smoked: 7 Smoking pack-years: 7.00 Smoking status: Former smoker Tobacco type: cigarettes Smokeless tobacco user: chewing tobacco Smoking end date: 06/06/81 Additional smoking assessment comments: He quit smoking when he was told he had COPD. Alcohol intake: never Substance use: never Substance use type: does not use Do You Feel Safe in your Home?: Yes Lack of Transportation: No Lack of Food: Never True Current Housing: I Have Housing Concerned About Future Housing: No Difficulty Paying Gas/Electric Bills: No Difficulty Paying for Meds: No Currently Unemployed: No Education: Associate Degree Difficulty w/ Childcare or Family Care: No Living arrangements: with family Additional living arrangements comments: Lives with spouse in [place]. They have been since 1973. They have a daughter and a son. Occupation/Education: retired Additional occupation/education comments: Retired from [employer]. [place] [employer] . Gender identity (if verbalized by the patient): Male Spiritual care concerns: No Agree to blood products: Yes Anes - Eval Final PreProcedure Day of Procedure 04/19/24 07:15 Patient weight: obese Heart: regular rate and rhythm Lungs: clear to auscultation and decreased breath sounds Airway: Mallampati scale and special considerations (Upper dentures, lower partials. ) Neurological: alert and oriented Last oral intake: >/= 8 hours ASA classification: IV Emergent: no Anesthetic plan: proceed Anesthesia type and monitoring: general LMA and standard monitoring Results Review: All pre-operative results and documents have been reviewed as part of the pre-operative evaluation. Asthma, COPD on home oxygen 2-3 cont, w bipap at night, hx of afib, AC on hold, hx CHF w LVEF by ECHO 2023 60-65%. Informed Consent: The patient's anesthetic plan and its attendant risks and benefits were discussed with the patient/family/POA. Questions were solicited and answers provided to the satisfaction of the patient/family/POA.
[2024-04-19] MEDS: ceFAZolin 2 GM/D5W 50 ML 2 GM/50 ML BAG IVPB (07:27)
[2024-04-19 07:34] LABS: INR 1.2; Partial Thromboplastin Time 29.9 Seconds (22.3-36.8); Prothrombin Time 15.3 Seconds (11.1-14.7)
[2024-04-19] MEDS: BUPivacaine HCL 0.5% PF 30 ML VIAL 16 ML INFILTRATE (08:11)
--- NOTE | 2024-04-19 08:48 | P.OP_ITS ---
Procedure Note - Detailed Date of Procedure 04/19/24 Pre-op Diagnosis Phimosis, LUTS Post-op Diagnosis Same Procedure Performed Circumcision, flexible cystoscopy Surgeon Larry Brown MD Anesthesia General Description of Procedure The patient is brought to the operative suite areas prepped and draped in a r outine sterile fashion while in a supine position. The lines of circumcision are outlined using a sterile marking pen. 2 circumferential circumcising incisions were made and carried down to Colle's fascia. The penile foreskin is circumferentially excised. Hemostasis is obtained with electric cautery. The edges of the penile skin reapproximated using a combination of running and interrupted 4-0 chromic. A penile block is administered at the base of the penis with 0.25% bupivacaine. EBL was approximately 10cc. flexible cystoscopy was undertaken with a 16 F will flexible cystoscope. He has no urethral stricture and very moderate lateral lobe hyperplasia without a median lobe. Bladder was slightly trabeculated. There was no intravesical foreign body neoplasm. Patient tolerated these procedures well was taken recovery room good condition. Pathology Yes Complications No immediate complications Condition Stable Disposition PACU
== END 2024-04-19 10:40 | disposition home or self-care (01) ==
PROVIDERS: Anesthesiology; PCP Family Medicine; Visit Provider Urology
PROC: (CPT 54161; principal; 2024-04-19 07:30)
PROC: 0TJB8ZZ Inspection of Bladder, Via Natural or Artificial Opening Endoscopic (ICD-10-PCS; CPT 52000; 2024-04-19 07:30)
DX: N47.1 Phimosis (principal); N40.0 Benign prostatic hyperplasia without lower urinary tract symptoms; E11.22 Type 2 diabetes mellitus with diabetic chronic kidney disease; I13.0 Hypertensive heart and chronic kidney disease with heart failure and stage 1 through stage 4 chronic kidney disease, or unspecified chronic kidney disease; N18.9 Chronic kidney disease, unspecified; I50.32 Chronic diastolic (congestive) heart failure; J44.9 Chronic obstructive pulmonary disease, unspecified; I87.2 Venous insufficiency (chronic) (peripheral); K74.60 Unspecified cirrhosis of liver; K21.9 Gastro-esophageal reflux disease without esophagitis; D50.9 Iron deficiency anemia, unspecified; G47.33 Obstructive sleep apnea (adult) (pediatric); I48.0 Paroxysmal atrial fibrillation; K58.9 Irritable bowel syndrome, unspecified; G47.30 Sleep apnea, unspecified; I25.2 Old myocardial infarction; I73.9 Peripheral vascular disease, unspecified; F17.220 Nicotine dependence, chewing tobacco, uncomplicated; E66.9 Obesity, unspecified; Z68.33 Body mass index [BMI] 33.0-33.9, adult; Z79.01 Long term (current) use of anticoagulants; Z79.51 Long term (current) use of inhaled steroids; Z79.82 Long term (current) use of aspirin; Z99.89 Dependence on other enabling machines and devices; Z98.890 Other specified postprocedural states; Z98.1 Arthrodesis status; Z87.19 Personal history of other diseases of the digestive system; Z86.718 Personal history of other venous thrombosis and embolism; Z86.79 Personal history of other diseases of the circulatory system; Z82.49 Family history of ischemic heart disease and other diseases of the circulatory system
CPT/HCPCS: 54161; 36415; 85610; 85730; 88304; A9270; J0690; J2003; J2371; J2405; J2704; J3010; J7030; J7120

== ENCOUNTER 2024-05-20 10:52 | Inpatient (IN) | payer MEDICARE, SELFPAY ==
[2024-05-20] VITALS (8 sets, daily range): BP systolic 124–143; BP diastolic 77–98; PULSE 84–104; RESP 17–25; TEMP 36.6; O2SAT 97–100; BMI 33.1
--- NOTE | ~2024-05-20 | XR_ITS ---
Clinical Indication: Shortness of breath AP and lateral views of the chest: Comparison: 01/19/2024 Findings: Suggestion of mild bibasilar pulmonary edema. Cardiomediastinal silhouette is within caitlyn l limits. Bones and soft tissues are unremarkable. Impression: Probable mild bibasilar pulmonary edema. Reviewed, dictated and finalized at [facility]. 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
--- NOTE | 2024-05-20 11:03 | ECG_ITS ---
Test Date: 2024-05-20 11:07:00 Measurements Intervals [place] Rate: 91 P: 0 VT: 0 QRS: -25 QRSD: 105 T: 1 QT: 325 QTc: 401 Interpretive Statements ATRIAL FIBRILLATION with occasional aberrant conduction POSSIBLE ANTERIOR MYOCARDIAL INFARCTION , PROBABLY OLD [30 ms Q WAVE IN V3/V4, OR R < 0.2 mV IN V4] ABNORMAL RHYTHM ECG Compared to ECG 01/19/2024 16:57:53 Myocardial infarct finding still present Electronically Signed On 05-20-2024 21:55:46 INFECTIOUS DISEASES PHYSICIAN by Russ Dave M.D.
--- NOTE | 2024-05-20 11:19 | PC.NURSE ---
Report given to Radha DIGGS, all questions answered
[2024-05-20 11:30] LABS: Basophils Absolute Auto 0.1 K/mm3 (0.0-0.1); Basophils Percent Auto 0.7 % (0.2-1.2); Eosinophils Absolute Auto 0.1 K/mm3 (0-0.3); Eosinophils Percent Auto 1.1 % (0-4.4); Hematocrit 34.5 % (42.0-52.0); Hemoglobin 10.8 g/dL (14.0-18.0); Immature Granulocyte Absolute 0.04 K/mm3 (0.00-0.031); Immature Granulocyte Percent A 0.5 % (0-0.5); Immature Platelet Fraction Pct 12.5 % (0.9-11.2); Lymphocytes Absolute Auto 0.36 K/mm3 (0.9-3.2); Lymphocytes Percent Auto 4.7 % (18.3-44.2); Mean Corpuscular HGB Conc 31.3 g/dl (32-36); Mean Corpuscular Hemoglobin 29.6 pg (26-34); Mean Corpuscular Volume 94.5 fl (80-100); Monocytes Absolute Auto 1.2 K/mm3 (0.1-0.6); Monocytes Percent Auto 15.4 % (2.6-8.5); Neutrophils Absolute Auto 5.9 K/mm3 (1.3-6.7); Neutrophils Percent Auto 77.6 % (45.5-73.1); Platelet Count Result 125 k/mm3 (150-375); Red Blood Count 3.65 M/mm3 (4.6-6.20); Red Cell Distribution Width 17.1 % (11.5-14.5); White Blood Count 7.6 K/mm3 (4.5-10.0)
[2024-05-20 11:39] LABS: Alanine Aminotransferase 26 U/L (6-50); Albumin Level 3.9 g/dL (3.5-5.1); Alkaline Phosphatase 113 U/L (38-126); Anion Gap 5 mmol/L (4-12); Aspartate Amino Transferase 38 U/L (17-59); Bilirubin,Total 1.1 mg/dL (0.2-1.3); Blood Urea Nitrogen 43 mg/dL (9-20); Calcium 9.6 mg/dL (8.4-10.2); Carbon Dioxide 29 mmol/L (22-30); Chloride 105 mmol/L (98-107); Estimated CRCL calculation 39 ml/min; Estimated Glomerular Filt Rate 35; Glucose 129 mg/dL (65-110); Potassium 4.1 mmol/L (3.4-5.0); Sodium 139 mmol/L (137-145)
--- NOTE | 2024-05-20 11:58 | ED_ITS ---
HPI - SOB/Dyspnea General Chief Complaint: Shortness of Breath/Dyspnea Stated Complaint: SOB Time Seen by Provider: 05/20/24 11:24 History of Present Illness HPI Narrative: 73-year-old male history of COPD on 2 L nasal cannula, AFib on Eliquis, CAD, hypertension, GERD presenting with shortness of breath. States that it feels like his COPD. He has been feeling short of breath for the last couple days with a productive cough. He has been using his nebulizer with some improvement. No further complaints. Related Data Home Medications ?Medication ?Instructions ?Recorded ?Confirmed ?Last Taken ?Type ferrous sulfate 324 mg (65 mg 324 mg PO DAILY 04/05/19 05/20/24 05/19/24 History iron) tablet,delayed release tamsulosin 0.4 mg capsule (Flomax) 0.4 mg PO HS 04/05/19 05/20/24 05/19/24 History aspirin 81 mg tablet,delayed 81 mg PO DAILY 05/21/19 05/20/24 05/19/24 History release cetirizine 10 mg tablet 10 mg PO DAILY 08/04/19 05/20/24 05/19/24 History acetaminophen 325 mg capsule 650 mg PO Q4H PRN Pain 03/17/20 05/20/24 05/19/24 History bumetanide 0.5 mg tablet 0.5 mg PO BID 11/17/20 05/20/24 05/19/24 History magnesium oxide 400 mg PO BID 03/04/21 05/20/24 05/19/24 History pyridoxine (vitamin B6) 100 mg 100 mg PO DAILY 03/04/21 05/20/24 05/19/24 History tablet cholecalciferol (vitamin D3) 25 25 mcg PO DAILY 03/03/23 05/20/24 05/19/24 History mcg (1,000 unit) capsule folic acid 400 mcg tablet 0.4 mg PO DAILY 08/23/23 05/20/24 05/19/24 History omeprazole 40 mg capsule,delayed 40 mg PO DAILY 12/27/23 05/20/24 05/19/24 History release doxycycline hyclate 100 mg capsule 100 mg PO DAILY 01/19/24 05/20/24 05/19/24 History fluticasone propionate 50 See Rx Instructions .Route .COMPLEX 01/19/24 05/20/2424 History mcg/actuation nasal spray,suspension (Allergy Relief (fluticasone)) gabapentin 300 mg capsule 300 mg PO BID 01/19/24 05/20/24 05/19/24 History spironolactone 25 mg tablet 12.5 mg PO DAILY 01/19/24 05/20/24 05/19/24 History mesalamine 4 gram/60 mL enema 4 g RECTAL PRN PRN Diarrhea 02/15/24 05/20/24 05/19/24 History ([place]) Lactobacillus acidophilus 100 mg PO TID 04/06/24 05/20/24 05/20/24 History benzonatate 200 mg capsule 200 mg PO TID PRN cough 05/14/24 05/20/24 Unknown History albuterol sulfate 2.5 mg/3 mL 2.5 mg inhalation QID shortness of 05/20/24 05/20/24 05/20/24 History (0.083 %) solution for nebulization breath or wheezing diclofenac sodium 3 % topical gel 1 applic topical ONCE PRN pain 05/20/24 05/20/24 Unknown History hydrocortisone 1 % topical cream 1 applic topical DAILY PRN itching 05/20/24 05/20/24 Unknown History (Anti-Itch (hydrocortisone)) lanolin alcohols-mineral 1 applic topical DAILY 05/20/24 05/20/24 Unknown History oil-w.petrolatum-ceresin topical cream (Eucerin topical cream) lidocaine 4 % topical patch 1 patch topical DAILY PRN pain 05/20/24 05/20/24 Unknown History (Lidocaine Pain Relief) triamcinolone acetonide 0.1 % 1 applic topical DAILY 05/20/24 05/20/24 Unknown History topical cream Allergies Allergy/AdvReac Type Severity Reaction Status Date / Time clindamycin Allergy Intermediate Rash Verified 05/14/24 15:38 levofloxacin Allergy Intermediate Swelling Verified 05/14/24 15:38 of the Eye Penicillins Allergy Intermediate Hives Verified 05/14/24 15:38 scopolamine Allergy Mild Hallucinati Verified 05/14/24 15:38 ng tobramycin Allergy Mild EYE REDNESS Verified 05/14/24 15:38 pepper (genus Capsicum) AdvReac Intermediate Nausea and Verified 05/14/24 15:38 Vomiting dust mites Allergy Swelling Uncoded 04/19/24 07:06 cats AdvReac Mild REDNESS OF Uncoded 04/19/24 07:06 THE EYES/WATERING Review of Systems 2 Review of Systems: All systems reviewed & are unremarkable except as noted in HPI and below PMFSH Past Medical History Medical History (Updated 05/20/24 @ 19:21 by Katiana Camarillo MD) Chronic anemia Liver cirrhosis secondary to nonalcoholic steatohepatitis (RAYGOZA) Methicillin resistant Staphylococcus aureus infection The patient had a spinal abscess L1-L2 complicated was septicemia and then had 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 On long-term doxycycline. Chronic venous stasis dermatitis of both lower extremities Duodenal ulcer Iron (Fe) deficiency anemia Chronic anticoagulation Deep venous thrombosis Cerebrovascular accident Gastroesophageal reflux disease Chronic obstructive pulmonary disease Benign prostatic hyperplasia Obstructive sleep apnea treated with BiPAP with bleed in oxygen of 2 L Paroxysmal atrial fibrillation Obesity (BMI 30-39.9) Eczema Chronic kidney disease Chronic diastolic heart failure Echocardiogram 10/2023 demonstrated EF of 60-65% grade 1 diastolic dysfunction, atrial fibrillation, by atrial enlargement difficult study Pneumothorax on left Surgical History Surgical History (Updated 05/20/24 @ 13:51 by Jannet Myles PA-C) History of cataract extraction with lens replacement History of bilateral hip replacements History of colonoscopy with polypectomy History of tracheostomy Status post excision of lipoma Neck. History of back surgery History of revision of total replacement of hip joint Family History Family History Mother Family history of cardiovascular disease Family history of coronary artery disease Father Family history of liver disease Sibling Hypertension Cerebrovascular accident Chronic obstructive pulmonary disease Social History Social History (Updated 05/20/24 @ 13:48 by Jannet Myles PA-C) Social History: Surrogate medical decision maker: Trinity Davalos (Cathy)ks, spouse. Code status: Full code. Smoking packs per day: 1 Smoking cigarettes per day: 20.0 Years smoked: 7 Smoking pack-years: 7.00 Smoking status: Never smoker Tobacco type: cigarettes Smokeless tobacco user: chewing tobacco Smoking end date: 06/06/81 Additional smoking assessment comments: He quit smoking when he was told he had COPD. Alcohol intake: never Substance use: never Substance use type: does not use Do You Feel Safe in your Home?: Yes Lack of Transportation: YES Lack of Food: Never True Current Housing: I Have Housing Concerned About Future Housing: No Difficulty Paying Gas/Electric Bills: No Difficulty Paying for Meds: No Currently Unemployed: No Education: Bachelor's Degree Difficulty w/ Childcare or Family Care: No Living arrangements: with family Additional living arrangements comments: Lives with spouse in [place]. They have been since 1973. They have a daughter and a son. Occupation/Education: retired Additional occupation/education comments: Retired from [employer]. [place] [employer] . Spiritual care concerns: No Agree to blood products: Yes Exam 2 Narrative: GENERAL: Chronically ill-appearing, no acute distress, pleasant cooperative HEAD: Normocephalic, atraumatic. EYES: PERRLA and EOMI. ENT: Grossly unremarkable NECK: Supple. CHEST: Coarse breath sounds bilaterally with scattered wheezing, saturating well on his baseline 2 L nasal cannula HEART: Regular rate and irregular rhythm ABDOMEN: Soft, nontender, nondistended EXTREMITIES: Normal range of motion. No edema. SKIN: Warm, dry, no rash. NEURO: No focal deficits. Alert and oriented x3. PSYCH: Normal mood and affect. Course Vital Signs Vital signs: Vital Signs Temperature 97.9 F 05/20/24 10:50 Pulse Rate 89 05/20/24 10:50 Respiratory Rate 25 H 05/20/24 10:50 Blood Pressure 124/77 05/20/24 10:50 Pulse Oximetry 98 05/20/24 10:50 Oxygen Delivery Nasal Cannula 05/20/24 10:50 Oxygen Flow Rate 2 05/20/24 10:50 Temperature 97.9 F 05/20/24 10:50 Pulse Rate 104 H 05/20/24 13:42 Respiratory Rate 20 05/20/24 13:42 Blood Pressure 130/83 05/20/24 13:12 Pulse Oximetry 97 05/20/24 17:30 Oxygen Delivery Nasal Cannula 05/20/24 17:30 Oxygen Flow Rate 2 05/20/24 17:30 MDM - SOB/Dyspnea MDM Narrative Medical decision making narrative: 73-year-old male presenting with shortness of breath and productive cough. He saturating well on his baseline 2 L nasal cannula. EKG per my interpretation shows atrial fibrillation with a ventricular rate in the 90s, no ST elevations or depressions. [place] [address], troponin of 0.039, chest x-ray with bilateral pulmonary edema. Patient received a breathing treatment, reports some improvement. Patient is positive for COVID-19. States that he has been compliant with his b.i.d. Bumex though he has gained some weight in the last few days. Feel he would benefit from admission for diuresis for CHF exacerbation, COPD, COVID-19.. IV Bumex has been ordered. He is agreeable with this plan. Spoke with the hospitalist who has accepted him for admission. Differential Diagnosis Differential diagnosis: Likely acute exacerbation of chronic obstructive airways disease, congestive heart failure and community acquired pneumonia Medical Records Attestation: I reviewed the patient's medical records. Lab Data Attestation: I reviewed the patient's lab results. 05/20/24 11:23 05/20/24 11:23 Labs: Lab Results 05/20/24 05/20/24 05/20/24 Range/Units 11:22 11:23 12:32 WBC 7.6 (4.5-10.0) K/mm3 RBC 3.65 L (4.6-6.20) M/mm3 Hgb 10.8 L (14.0-18.0) g/dL Hct 34.5 L (42.0-52.0) % MCV 94.5 (80-100) fl MCH 29.6 (26-34) pg MCHC 31.3 L (32-36) g/dl RDW 17.1 H (11.5-14.5) % Plt Count 125 L (150-375) k/mm3 MPV 13.0 H (7.4-10.4) fl Immature Gran % (Auto) 0.5 (0-0.5) % Neut % (Auto) 77.6 H (45.5-73.1) % Lymph % (Auto) 4.7 L (18.3-44.2) % [place] % (Auto) 15.4 H (2.6-8.5) % Eos % (Auto) 1.1 (0-4.4) % Baso % (Auto) 0.7 (0.2-1.2) % Lymph # (Auto) 0.36 L (0.9-3.2) K/mm3 [place] # (Auto) 1.2 H (0.1-0.6) K/mm3 Eos # (Auto) 0.1 (0-0.3) K/mm3 Baso # (Auto) 0.1 (0.0-0.1) K/mm3 Abs Immat Gran (auto) 0.04 H (0.00-0.031) K/mm3 Absolute Neuts (auto) 5.9 (1.3-6.7) K/mm3 Absolute Nucleated RBC 0.000 (0.0-0.012) K/mm3 Nucleated RBC % 0.0 (0.0-0.2) % % Immature Plt Fraction 12.5 H (0.9-11.2) % PT 20.2 H (11.1-14.7) Seconds INR 1.7 APTT 33.5 (22.3-36.8) Seconds Sodium 139 (137-145) mmol/L Potassium 4.1 (3.4-5.0) mmol/L Chloride 105 (98-107) mmol/L Carbon Dioxide 29 (22-30) mmol/L Anion Gap 5 (4-12) mmol/L BUN 43 H D (9-20) mg/dL Creatinine 1.90 H (0.7-1.3) mg/dL Estim Creat Clear Calc 39 ml/min Estimated GFR 35 L (59 - ) Glucose 129 H (65-110) mg/dL Calcium 9.6 (8.4-10.2) mg/dL Total Bilirubin 1.1 (0.2-1.3) mg/dL AST 38 (17-59) U/L ALT 26 (6-50) U/L Alkaline Phosphatase 113 (38-126) U/L Troponin I 0.039 H* (0.000-0.034) ng/mL NT-Pro-B Natriuret Pep 78744 H (19.9-100) pg/mL Total Protein 7.0 (6.3-8.2) g/dL Albumin 3.9 (3.5-5.1) g/dL Influenza A (RT-PCR) Negative (Negative) Influenza B (RT-PCR) Negative (Negative) RSV (RT-PCR) Negative (Negative) SARS-CoV-2 RNA (RT-PCR) Positive A (Negative) 05/20/24 Range/Units 14:24 WBC (4.5-10.0) K/mm3 RBC (4.6-6.20) M/mm3 Hgb (14.0-18.0) g/dL Hct (42.0-52.0) % MCV (80-100) fl MCH (26-34) pg MCHC (32-36) g/dl RDW (11.5-14.5) % Plt Count (150-375) k/mm3 MPV (7.4-10.4) fl Immature Gran % (Auto) (0-0.5) % Neut % (Auto) (45.5-73.1) % Lymph % (Auto) (18.3-44.2) % [place] % (Auto) (2.6-8.5) % Eos % (Auto) (0-4.4) % Baso % (Auto) (0.2-1.2) % Lymph # (Auto) (0.9-3.2) K/mm3 [place] # (Auto) (0.1-0.6) K/mm3 Eos # (Auto) (0-0.3) K/mm3 Baso # (Auto) (0.0-0.1) K/mm3 Abs Immat Gran (auto) (0.00-0.031) K/mm3 Absolute Neuts (auto) (1.3-6.7) K/mm3 Absolute Nucleated RBC (0.0-0.012) K/mm3 Nucleated RBC % (0.0-0.2) % % Immature Plt Fraction (0.9-11.2) % PT (11.1-14.7) Seconds INR APTT (22.3-36.8) Seconds Sodium (137-145) mmol/L Potassium (3.4-5.0) mmol/L Chloride (98-107) mmol/L Carbon Dioxide (22-30) mmol/L Anion Gap (4-12) mmol/L BUN (9-20) mg/dL Creatinine (0.7-1.3) mg/dL Estim Creat Clear Calc ml/min Estimated GFR (59 - ) Glucose (65-110) mg/dL Calcium (8.4-10.2) mg/dL Total Bilirubin (0.2-1.3) mg/dL AST (17-59) U/L ALT (6-50) U/L Alkaline Phosphatase (38-126) U/L Troponin I 0.036 H* (0.000-0.034) ng/mL NT-Pro-B Natriuret Pep (19.9-100) pg/mL Total Protein (6.3-8.2) g/dL Albumin (3.5-5.1) g/dL Influenza A (RT-PCR) (Negative) Influenza B (RT-PCR) (Negative) RSV (RT-PCR) (Negative) SARS-CoV-2 RNA (RT-PCR) (Negative) Imaging Data Radiologist's impression: ITS Impressions Chest X-Ray 05/20/24 12:22 Impression: Probable mild bibasilar pulmonary edema. Critical Care Time Critical Care Time Critical Care Time: Yes Total Critical Care Time: 32 Discharge Plan Discharge Clinical Impression: Acute exacerbation of CHF (congestive heart failure), COVID-19 Atrial fibrillation Qualifiers: Atrial fibrillation type: unspecified Qualified Code(s): I48.91 - Unspecified atrial fibrillation COPD (chronic obstructive pulmonary disease) Qualifiers: COPD type: COPD with acute lower respiratory infection Qualified Code(s): J44.0 - Chronic obstructive pulmonary disease with (acute) lower respiratory infection Patient Disposition: Still a Patient Condition: Stable
[2024-05-20] MEDS: IPRATROPIUM BR 0.02% INH SOLN 0.5 MG/2.5 ML VIAL INHALATION (12:38)
[2024-05-20] MEDS: ALBUTEROL SULFATE NEB 2.5 MG/3 ML INH 10 MG INHALATION (12:38)
[2024-05-20 12:43] LABS: INR 1.7; Prothrombin Time 20.2 Seconds (11.1-14.7)
[2024-05-20 12:44] LABS: Partial Thromboplastin Time 33.5 Seconds (22.3-36.8)
[2024-05-20 12:57] LABS: NT Pro B Type Natriuretic Pept 15900 pg/mL (19.9-100); Troponin I 0.039 ng/mL (0.000-0.034)
[2024-05-20] MEDS: BUMETANIDE INJ 1 MG/4 ML VIAL IV PUSH (13:07)
[2024-05-20] MEDS: methylPREDNISolone SOD SUCC 125 MG VIAL IV PUSH (13:07)
[2024-05-20 13:21] LABS: Influenza A QL RT-PCR Negative (Negative); Influenza B QL RT-PCR Negative (Negative); RSV RNA, RT-PCR Negative (Negative); SARS-CoV-2 RNA PCR Positive (Negative)
--- NOTE | 2024-05-20 13:45 | P.HP_ITS ---
H&P: HPI History of Present Illness Date/Time: 05/20/24 14:15 Chief Complaint: Shortness of breath. Narrative: This is a 73-year-old male with multiple medical problems including chronic hypoxic respiratory failure on home oxygen, heart failure with preserved ejection fraction, coronary artery disease, hypertension, atrial fibrillation on chronic anticoagulation, obstructive sleep apnea on BiPAP, ulcerative colitis, cirrhosis, chronic kidney disease, chronic anemia, benign prostatic hyperplasia, diet-controlled diabetes, MRSA bacteremia, and other comorbidities who presented to the emergency department via EMS from home for evaluation of shortness of breath. The patient provides the following history. He has not been feeling well for several days with cough productive of occasional yellow phlegm, generalized malaise, and increasing shortness of breath from baseline. He has also noticed a gain of several lb in the past couple of days. He denies fever, sinus congestion, sore throat, chest pain, pleuritic pain, orthopnea, nausea, vomiting, and diarrhea. has had a cough as well. Of note he was having difficulties urinating the emergency department and a Cabral catheter was inserted. In the ED: He was afebrile on arrival with stable vital signs. SpO2 was in the upper 90s on his usual 2 L. labs were significant for a WBC count of 7.6, hemoglobin 10.8, platelet 125, BUN 43, creatinine 1.90, glucose 129, troponin 0.036, proBNP 64999. He tested positive for SARS-CoV-2 by PCR. Chest x-ray showed probable mild bibasilar pulmonary edema. He was given a nebulizer treatment, methylprednisolone 125 mg IV, and bumetanide 1 mg IV. He is being admitted in this setting for further treatment and evaluation. Review of Systems Review of Systems: 12 systems were reviewed and are negativ e except for as per HPI. FOR[facility]LY [facility] Past Medical History Medical History (Updated 05/20/24 @ 16:14 by Jannet Myles PA-C) Chronic anemia Liver cirrhosis secondary to nonalcoholic steatohepatitis (RAYGOZA) Methicillin resistant Staphylococcus aureus infection The patient had a spinal abscess L1-L2 complicated was septicemia and then had 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 On long-term doxycycline. Chronic venous stasis dermatitis of both lower extremities Duodenal ulcer Iron (Fe) deficiency anemia Chronic anticoagulation Deep venous thrombosis Cerebrovascular accident Gastroesophageal reflux disease Chronic obstructive pulmonary disease Benign prostatic hyperplasia Obstructive sleep apnea treated with BiPAP with bleed in oxygen of 2 L Paroxysmal atrial fibrillation Obesity (BMI 30-39.9) Eczema Chronic kidney disease Chronic diastolic heart failure Echocardiogram 10/2023 demonstrated EF of 60-65% grade 1 diastolic dysfunction, atrial fibrillation, by atrial enlargement difficult study Pneumothorax on left Surgical History Surgical History (Updated 05/20/24 @ 13:51 by Jannet Myles PA-C) History of cataract extraction with lens replacement History of bilateral hip replacements History of colonoscopy with polypectomy History of tracheostomy Status post excision of lipoma Neck. History of back surgery History of revision of total replacement of hip joint Family History Family History Mother Family history of cardiovascular disease Family history of coronary artery disease Father Family history of liver disease Sibling Hypertension Cerebrovascular accident Chronic obstructive pulmonary disease Social History Social History (Updated 05/20/24 @ 13:48 by Jannet Myles PA-C) Social History: Surrogate medical decision maker: Trinity Keys (Cathy), spouse. Code status: Full code. Smoking packs per day: 1 Smoking cigarettes per day: 20.0 Years smoked: 7 Smoking pack-years: 7.00 Smoking status: Never smoker Tobacco type: cigarettes Smokeless tobacco user: chewing tobacco Smoking end date: 06/06/81 Additional smoking assessment comments: He quit smoking when he was told he had COPD. Alcohol intake: never Substance use: never Substance use type: does not use Do You Feel Safe in your Home?: Yes Lack of Transportation: YES Lack of Food: Never True Current Housing: I Have Housing Concerned About Future Housing: No Difficulty Paying Gas/Electric Bills: No Difficulty Paying for Meds: No Currently Unemployed: No Education: Bachelor's Degree Difficulty w/ Childcare or Family Care: No Living arrangements: with family Additional living arrangements comments: Lives with spouse in [place]. They have been since 1973. They have a daughter and a son. Occupation/Education: retired Additional occupation/education comments: Retired from [employer]. [place] [employer] . Spiritual care concerns: No Agree to blood products: Yes Meds Home Medications and Allergies Home Medications ?Medication ?Instructions ?Recorded ?Confirmed ?Type ferrous sulfate 324 mg (65 mg 324 mg PO DAILY 04/05/19 05/14/24 History iron) tablet,delayed release tamsulosin 0.4 mg capsule (Flomax) 0.4 mg PO HS 04/05/19 05/14/24 History aspirin 81 mg tablet,delayed 81 mg PO DAILY 05/21/19 05/14/24 History release cetirizine 10 mg tablet 10 mg PO DAILY 08/04/19 05/14/24 History acetaminophen 325 mg capsule 650 mg PO Q4H PRN Pain 03/17/20 05/14/24 History bumetanide 0.5 mg tablet 0.5 mg PO BID 11/17/20 05/14/24 History inhalational spacing device #10 ea 11/17/20 05/14/24 Rx (Aerochamber MV spacer) magnesium oxide 400 mg PO BID 03/04/21 05/14/24 History pyridoxine (vitamin B6) 100 mg 100 mg PO DAILY 03/04/21 05/14/24 History tablet cholecalciferol (vitamin D3) 25 25 mcg PO DAILY 03/03/23 05/14/24 History mcg (1,000 unit) capsule folic acid 400 mcg tablet 0.4 mg PO DAILY 08/23/23 05/14/24 History nebulizer accessories #3 ea 08/23/23 05/14/24 Rx baclofen 10 mg tablet See Rx Instructions .Route 11/11/23 05/14/24 Rx .COMPLEX #90 tabs metoprolol succinate 50 mg 50 mg PO DAILY #180 tabs 12/05/23 05/14/24 Rx tablet,extended release 24 hr omeprazole 40 mg capsule,delayed 40 mg PO DAILY 12/27/23 05/14/24 History release Breztri Aerosphere 160 2 inh inhalation Q12H #10.7 grams 01/18/24 05/14/24 Rx mcg-9mcg-4.8mcg/actuation HFA aerosol inhaler ([id number]) doxycycline hyclate 100 mg capsule 100 mg PO DAILY 01/19/24 05/14/24 History fluticasone propionate 50 See Rx Instructions .Route .COMPLEX 01/19/24 05/14/24 History mcg/actuation nasal spray,suspension (Allergy Relief (fluticasone)) gabapentin 300 mg capsule 300 mg PO BID 01/19/24 05/14/24 History spironolactone 25 mg tablet 12.5 mg PO DAILY 01/19/24 05/14/24 History mesalamine 4 gram/60 mL enema 4 g RECTAL PRN PRN Diarrhea 02/15/24 05/14/24 History (Rowasa) Lactobacillus acidophilus 100 mg PO DAILY 04/06/24 05/14/24 History albuterol sulfate 2.5 mg/3 mL 2.5 mg (3 mL) inhalation QID PRN 04/09/24 05/14/24 Rx (0.083 %) solution for nebulization shortness of breath or wheezing #360 mL apixaban 5 mg tablet (Eliquis) 5 mg PO BID #180 tabs 04/09/24 05/14/24 Rx roflumilast 500 mcg tablet 500 mcg PO DAILY 90 days #90 tabs 04/09/24 05/14/24 Rx (Daliresp) hydrocodone 5 mg-acetaminophen 325 1 - 2 tablet PO Q6H PRN pain #20 04/19/24 05/14/24 Rx mg tablet tabs benzonatate 200 mg capsule 200 mg PO BID PRN 05/14/24 05/14/24 History Allergies Allergy/AdvReac Type Severity Reaction Status Date / Time clindamycin Allergy Intermediate Rash Verified 05/14/24 15:38 levofloxacin Allergy Intermediate Swelling Verified 05/14/24 15:38 of the Eye Penicillins Allergy Intermediate Hives Verified 05/14/24 15:38 scopolamine Allergy Mild Hallucinati Verified 05/14/24 15:38 ng tobramycin Allergy Mild EYE REDNESS Verified 05/14/24 15:38 pepper (genus Capsicum) AdvReac Intermediate Nausea and Verified 05/14/24 15:38 Vomiting dust mites Allergy Swelling Uncoded 04/19/24 07:06 cats AdvReac Mild REDNESS OF Uncoded 04/19/24 07:06 THE EYES/WATERING Vital Signs Vital Signs - 24 hr 05/20/24 10:50 05/20/24 12:17 05/20/24 12:38 Temperature 97.9 F Pulse Rate 89 85 Respiratory Rate 25 H 20 Blood Pressure 124/77 Pulse Oximetry 98 100 Oxygen Delivery Nasal Cannula Nasal Cannula Oxygen Flow Rate 2 2 05/20/24 13:12 05/20/24 13:42 Temperature Pulse Rate 91 104 H Respiratory Rate 17 20 Blood Pressure 130/83 Pulse Oximetry 100 Oxygen Delivery Oxygen Flow Rate Exam Narrative: General: Chronically ill-appearing gentleman the semi-Marques position in no acute distress. Weight: 112.2 kg. BMI: 34.5. HEENT: PERRL, EOMI. Sclera anicteric. Oral mucosa moist. Oropharynx is crowded and poorly visualized. Neck: Supple. Limited due to neck circumference. No obvious JVD. Respiratory: Respirations are nonlabored and he appears in no distress. Occasional dry cough. Lung sounds are diminished throughout with scattered coarse crackles and occasional wheezing. Cardiovascular: Irregularly regular rate rhythm. Soft murmur at the upper sternal border. Gastrointestinal: Abdomen is soft, obese, nontender, and nondistended with positive bowel sounds. Skin: Warm and dry. Chronic hyperpigmentation of the lower legs bilaterally. Extremities: No cyanosis or clubbing. 1+ apple ankle edema bilaterally softening towards the mid calves. No palpable knots or cords. Negative Zahraa sign bilaterally. Neurological: Alert and oriented. Cranial nerves 2-12 are grossly intact. No gross focal deficits to casual conversation. Psychiatric: Pleasant and cooperative with normal mood and affect. H&P: Results Labs Labs: Short CBC 05/20/24 Range/Units 11:23 WBC 7.6 (4.5-10.0) K/mm3 Hgb 10.8 L (14.0-18.0) g/dL Hct 34.5 L (42.0-52.0) % Plt Count 125 L (150-375) k/mm3 BMP 05/20/24 11:23 Sodium 139 Potassium 4.1 Chloride 105 Carbon Dioxide 29 BUN 43 H D Creatinine 1.90 H Glucose 129 H Calcium 9.6 Cardiac Enzymes 05/20/24 Range/Units 11:22 Troponin I 0.039 H* (0.000-0.034) ng/mL Liver Function 05/20/24 Range/Units 11:23 Total Bilirubin 1.1 (0.2-1.3) mg/dL AST 38 (17-59) U/L ALT 26 (6-50) U/L Alkaline Phosphatase 113 (38-126) U/L Albumin 3.9 (3.5-5.1) g/dL Covid Lab Results 05/20/24 12:32 SARS-CoV-2 RNA (RT-PCR) Positive A (Negative) Imaging Chest X-Ray 05/20/24 12:22 Impression: Probable mild bibasilar pulmonary edema. Assessment and Plan Assessment and plan (1) CHF exacerbation: Code(s): I50.9 - Heart failure, unspecified Status: Acute (2) COVID: Code(s): U07.1 - COVID-19 Status: Acute (3) Chronic obstructive pulmonary disease: Qualifiers: COPD type: unspecified COPD Qualified Code(s): J44.9 - Chronic obstructive pulmonary disease, unspecified Code(s): J44.9 - Chronic obstructive pulmonary disease, unspecified Status: Chronic (4) Benign prostatic hyperplasia with urinary retention: Code(s): N40.1 - Benign prostatic hyperplasia with lower urinary tract symptoms; R33.8 - Other retention of urine Status: Acute (5) Chronic hypoxemic respiratory failure: Code(s): J96.11 - Chronic respiratory failure with hypoxia Status: Chronic (6) Paroxysmal atrial fibrillation: Code(s): I48.0 - Paroxysmal atrial fibrillation Status: Chronic (7) Chronic anticoagulation: Code(s): Z79.01 - electronic console display operator (current) use of anticoagulants Status: Chronic (8) Liver cirrhosis secondary to nonalcoholic steatohepatitis (RAYGOZA): Code(s): K75.81 - Nonalcoholic steatohepatitis (RAYGOZA); K74.60 - Unspecified cirrhosis of liver Status: Acute (9) Obstructive sleep apnea treated with BiPAP: Code(s): G47.33 - Obstructive sleep apnea (adult) (pediatric) Status: Chronic (10) Chronic kidney disease: Qualifiers: Chronic kidney disease stage: stage 3 (moderate) Qualified Code(s): N18.3 - Chronic kidney disease, stage 3 (moderate) Code(s): N18.9 - Chronic kidney disease, unspecified Status: Acute (11) Chronic anemia: Code(s): D64.9 - Anemia, unspecified Status: Acute Plan The patient presented to the emergency department for evaluation of shortness of breath as detailed in HPI. Labs, imaging, EKG, and all reports were personally reviewed. Shortness of breath is likely due to a combination of factors including COVID and CHF. There is faint wheezing on exam though does not appear to have an overt COPD exacerbation at this time. He has been started on remdesivir and dexamethasone and he will be diuresed with close monitoring of volume status, renal function, and electrolytes. He is currently at his baseline oxygen requirements. Creatinine is elevated from baseline however he was retaining urine and a Cabral catheter has been inserted. Renal function will likely improve now that the obstruction has been relieved and a repeat BMP has been ordered for a.m.. Anemia stable on review of previous labs. Atrial fibrillation is rate controlled on metoprolol. Continue apixaban for stroke prophylaxis. Blood pressures were reviewed and they are stable. BiPAP will be provided for the patient to use while hospitalized. He does not appear to be in decompensated cirrhosis; platelets are mildly decreased and will be monitored. His home medications will be reviewed and resumed as appropriate. Findings and treatment plan were discussed with the patient. Questions were solicited and answered to satisfaction. The patient's medical management will be taken over by the hospitalist team in a.m. Quality VTE Prophylaxis VTE prophylaxis: pharmacologic ordered (on apixaban) The patient has been admitted under observation status. Hospitalist MIPS Advance Care Plan I have confirmed that the patient's Advanced Care Plan is present, code status is documented, or surrogate decision maker is listed in patient medical record.: Yes Medication Reconciliation I have utilized all available resources to obtain, update and review the patients current medications (includes all prescriptions, OTC, herbals, cannabis, and nutritional supplements).: Yes
[2024-05-20 14:54] LABS: Troponin I 0.036 ng/mL (0.000-0.034)
[2024-05-20] MEDS: ACETAMINOPHEN 325 MG TABLET 650 MG PO ×2 (16:54→21:40)
[2024-05-20 17:12] LABS: Glucose Point of Care 169 mg/dl (65-105)
[2024-05-20] MEDS: REMDESIVIR 200 MG/NS 250 ML 200 MG/250 ML BAG 250 MG IVPB (17:43)
[2024-05-20 17:47] LABS: Troponin I 0.036 ng/mL (0.000-0.034)
[2024-05-20 20:26] LABS: Glucose Point of Care 179 mg/dl (65-105)
[2024-05-20] MEDS: WATER FOR IRRIGATION, STERILE 1,000 ML BOTTLE 1000 ML (21:04)
[2024-05-20] MEDS: GABAPENTIN 300 MG CAPSULE PO (21:40)
[2024-05-20] MEDS: PANTOPRAZOLE 40 MG TABLET PO (21:40)
[2024-05-20] MEDS: MAGNESIUM OXIDE 400 MG TABLET PO (21:41)
[2024-05-20] MEDS: ACIDOPHILUS/BULGARICUS CHEWABLE TABLET 1 TABLET PO (21:41)
[2024-05-20] MEDS: BACLOFEN 10 MG TABLET BY MOUTH (21:41)
[2024-05-20] MEDS: TAMSULOSIN HCL 0.4 MG CAPSULE PO (21:41)
[2024-05-20] MEDS: APIXABAN 5 MG TABLET PO (21:41)
[2024-05-20] MEDS: IPRATROPIUM 0.5 MG/ALBUTEROL SULFATE 2.5 MG AMPUL.NEB 3 ML NEBULIZE (21:49)
[2024-05-21] VITALS (16 sets, daily range): BP systolic 115–128; BP diastolic 63–79; PULSE 65–89; RESP 18–28; TEMP 36.5–36.8; O2SAT 94–100
[2024-05-21 06:32] LABS: Hemoglobin 10.8 g/dL (14.0-18.0); Immature Granulocyte Absolute 0.02 K/mm3 (0.00-0.031); Immature Granulocyte Percent A 0.4 % (0-0.5); Immature Platelet Fraction Pct 13.6 % (0.9-11.2); Lymphocytes Absolute Auto 0.32 K/mm3 (0.9-3.2); Lymphocytes Percent Auto 6.8 % (18.3-44.2); Mean Corpuscular HGB Conc 30.9 g/dl (32-36); Mean Corpuscular Hemoglobin 29.4 pg (26-34); Mean Corpuscular Volume 95.4 fl (80-100); Monocytes Absolute Auto 0.3 K/mm3 (0.1-0.6); Monocytes Percent Auto 5.9 % (2.6-8.5); Neutrophils Absolute Auto 4.1 K/mm3 (1.3-6.7); Neutrophils Percent Auto 86.9 % (45.5-73.1); Platelet Count Result 132 k/mm3 (150-375); Red Blood Count 3.67 M/mm3 (4.6-6.20); Red Cell Distribution Width 17.3 % (11.5-14.5); White Blood Count 4.7 K/mm3 (4.5-10.0)
[2024-05-21 06:40] LABS: Alanine Aminotransferase 25 U/L (6-50); Albumin Level 3.8 g/dL (3.5-5.1); Alkaline Phosphatase 106 U/L (38-126); Anion Gap 7 mmol/L (4-12); Aspartate Amino Transferase 33 U/L (17-59); Bilirubin,Total 0.8 mg/dL (0.2-1.3); Blood Urea Nitrogen 47 mg/dL (9-20); CRP 1.7 mg/dL (<1.0); Calcium 9.3 mg/dL (8.4-10.2); Carbon Dioxide 27 mmol/L (22-30); Chloride 106 mmol/L (98-107); Estimated CRCL calculation 38 ml/min; Estimated Glomerular Filt Rate 35; Glucose 122 mg/dL (65-110); Lactate Dehydrogenase 139 U/L (120-246); Magnesium 2.2 mg/dL (1.6-2.3); Potassium 4.2 mmol/L (3.4-5.0); Sodium 140 mmol/L (137-145)
[2024-05-21 07:34] LABS: Thyroid Stimulating Hormone Reflex 0.331 uIU/mL (0.465-4.68)
[2024-05-21 08:08] LABS: Free T4 Free Thyroxine Reflex 1.49 ng/dL (0.78-2.19)
[2024-05-21 08:10] LABS: Glucose Point of Care 120 mg/dl (65-105)
[2024-05-21] MEDS: FLUTICASONE/UMECLIDIN/VILANTER 100-62.5-25 MCG ELLIPTA 1 PUFF INHALATION (08:20)
[2024-05-21] MEDS: FLUTICASONE PROPIONATE 0.05% NA SPR 16 GM BTL (*BKC) 2 SPRAY NASAL ×2 (08:31→17:15)
[2024-05-21] MEDS: ROFLUMILAST 500 MCG TABLET PO (08:32)
[2024-05-21] MEDS: LORATADINE 10 MG TABLET PO (08:32)
[2024-05-21] MEDS: FERROUS SULFATE 325 MG TABLET DR PO (08:32)
[2024-05-21] MEDS: PANTOPRAZOLE 40 MG TABLET PO ×2 (08:32→17:13)
[2024-05-21] MEDS: CHOLECALCIFEROL 1,000 UNITS TABLET 1000 UNITS PO (08:32)
[2024-05-21] MEDS: BUMETANIDE INJ 1 MG/4 ML VIAL IV PUSH (08:32)
[2024-05-21] MEDS: GABAPENTIN 300 MG CAPSULE PO ×2 (08:33→17:13)
[2024-05-21] MEDS: MAGNESIUM OXIDE 400 MG TABLET PO ×2 (08:33→17:13)
[2024-05-21] MEDS: METOPROLOL SUCCINATE EXT REL 50 MG TABCR PO (08:33)
[2024-05-21] MEDS: APIXABAN 5 MG TABLET PO ×2 (08:33→20:50)
[2024-05-21] MEDS: SPIRONOLACTONE 12.5 MG TABLET PO (08:33)
[2024-05-21] MEDS: FOLIC ACID 0.4 MG TABLET PO (08:33)
[2024-05-21] MEDS: ASPIRIN 81 MG ENTERIC TABLET PO (08:33)
[2024-05-21] MEDS: ACIDOPHILUS/BULGARICUS CHEWABLE TABLET 1 TABLET PO ×3 (08:34→17:13)
[2024-05-21] MEDS: PYRIDOXINE HCL 50 MG TABLET 100 MG PO (08:34)
[2024-05-21] MEDS: dexAMETHasone 2 MG TABLET 6 MG PO (08:36)
[2024-05-21] MEDS: TRIAMCINOLONE ACET 0.1% CREAM 15 GM TUBE 1 APPLIC TOPICAL (08:36)
[2024-05-21] MEDS: EUCERIN CREAM 120 GM JAR 1 APPLIC TOPICAL (08:36)
--- NOTE | 2024-05-21 09:53 | P.PNIM_ITS ---
Progress Note: A&P Assessment and Plan (1) Acute on chronic respiratory failure with hypoxia and hypercapnia: Code(s): J96.21 - Acute and chronic respiratory failure with hypoxia; J96.22 - Acute and chronic respiratory failure with hypercapnia Status: Acute Assessment and Plan: * respiratory panel positive for COVID-19 * elevated proBNP 15,900-- continue diuresis Bumex * continue to wean O2 for sat greater than 90% * currently on 2 L nasal cannula now * continue DuoNeb breathing treatments * continue doxycycline * was given a loading dose of Solu-Medrol 125 mg IV push in the ED * continue Decadron and remdesivir for the COVID-19 * respiratory panel was negative for influenza a and B, RSV (2) COVID-19: Code(s): U07.1 - COVID-19 Status: Acute Assessment and Plan: * respiratory panel positive for COVID 19 * continue Decadron and remdesivir as stated above * see above plan of care (3) Acute exacerbation of CHF (congestive heart failure): Qualifiers: Heart failure type: diastolic Qualified Code(s): I50.33 - Acute on chronic diastolic (congestive) heart failure Code(s): I50.9 - Heart failure, unspecified Status: Acute Assessment and Plan: * echocardiogram reviewed from 11/04/2023 shown normal LV systolic function with an estimated EF of 60-65%, grade 1 diastolic dysfunction * initial proBNP 87806 * continue Bumex IV for now * continue metoprolol, spironolactone, Bumex (4) Chronic obstructive pulmonary disease: Qualifiers: COPD type: unspecified COPD Qualified Code(s): J44.9 - Chronic obstructive pulmonary disease, unspecified Code(s): J44.9 - Chronic obstructive pulmonary disease, unspecified Status: Chronic Assessment and Plan: * continue DuoNeb breathing treatments * currently on Decadron 6 mg daily * continue Flonase and Claritin * continue roflumilast (5) Acute kidney injury superimposed on chronic kidney disease: Code(s): N17.9 - Acute kidney failure, unspecified; N18.9 - Chronic kidney disease, unspecified Status: Acute Assessment and Plan: * creatinine currently 1.90, EGFR 35 * baseline creatinine appears to be 1.2-1.3, EGFR 54-59 * continue to trend * renally dose medications as needed * avoid testing with IV contrast and nephrotoxic medications (6) Diabetes mellitus: Code(s): E11.9 - Type 2 diabetes mellitus without complications Status: Acute Assessment and Plan: * Blood sugars ranging 120-179 * Hgb A1C 6.0 * Accu checks AC/HS * moderate dose SSI ordered * hypoglycemic protocol in place * Diabetic diet ordered * not on any home medications currently, this is a new diagnosis- he will likely need metformin upon discharge as well as a glucometer with accessories * educator senior clinical consult * dietitian consult (7) Thrombocytopenia: Code(s): D69.6 - Thrombocytopenia, unspecified Status: Acute Assessment and Plan: * platelet count 132 today * his platelet count was in normal range back in January of this year * will check vitamin B12 * patient is currently on folic acid, we will go ahead and check another folate today (8) Chronic anemia: Code(s): D64.9 - Anemia, unspecified Status: Chronic Assessment and Plan: * hemoglobin 10.8 * not on any home medication * could be due to chronic kidney disease however is on Eliquis for his AFib * will check vitamin B12 and folic acid, ferritin, iron * TSH 0.331, free T4 1.49, total T3 is pending-- not currently on any thyroid m edications. Will continue to monitor. (9) Benign prostatic hyperplasia with urinary retention: Code(s): N40.1 - Benign prostatic hyperplasia with lower urinary tract symptoms; R33.8 - Other retention of urine Status: Chronic Assessment and Plan: * continue tamsulosin * Currently has umaña catheter in place due to urinary retention * Follows with Dr. Brown * Will consult Urology for further guidance. (10) Paroxysmal atrial fibrillation: Code(s): I48.0 - Paroxysmal atrial fibrillation Status: Chronic Assessment and Plan: * continue Eliquis and metoprolol (11) Liver cirrhosis secondary to nonalcoholic steatohepatitis (RAYGOZA): Code(s): K75.81 - Nonalcoholic steatohepatitis (RAYGOZA); K74.60 - Unspecified cirrhosis of liver Status: Chronic Assessment and Plan: * continue spironolactone * trend liver enzymes (12) Obstructive sleep apnea treated with BiPAP: Code(s): G47.33 - Obstructive sleep apnea (adult) (pediatric) Status: Chronic Assessment and Plan: * CPAP ordered for night use Time Spent With Patient Time with patient: Greater than 35 minutes Subjective Date/time seen: 05/21/24 09:53 Interval history: Interval history: this is a 73-year-old male who presented to the hospital on 05/20/2024 with complaints of shortness a breath. Workup in the hospital included a chest x-ray which showed probable mild bibasilar pulmonary edema. Initial labs shown a normal white blood cell count of 7.6, hemoglobin 10.8, platelet count 125, creatinine 1.9, EGFR 35, troponin 0.039> 0.036> 0.036, proBNP 05566, C reactive protein 1.7, TSH 0.331, free T4 1.49, total T3 pending. respiratory panel was negative for influenza a and B, RSV. He was positive for COVID. EKG showed AFib with a rate of 91, QTC 401. Patient was given nebulizer treatment, loading dose of Solu-Medrol 125 mg IV push x1, 1 mg of Bumex, and started on remdesivir while in the ED. Subjective: Patient denies any fever, chills, nausea, vomiting, diarrhea, abdominal pain, chest pain. He is short of breath at rest when talking. Currently on his baseline O2 requirement of 2L NC. Labs and imaging reviewed. Review of Systems Review of Systems: All systems reviewed & are unremarkable except as noted in HPI and below Constitutional: Constitutional: Reports as per HPI and Reports no additional constitutional complaints Eyes: Eyes: Reports as per HPI and Reports no additional eye complaints ENT: Reports system reviewed and no additional complaints, except as documented and Reports as per HPI Cardiovascular: Cardiovascular: Reports as per HPI and Reports no additional cardiovascular complaints Respiratory: Respiratory: Reports as per HPI and Reports no additional respiratory complaints Gastrointestinal: Gastrointestinal: Reports as per HPI and Reports no additional gastrointestinal complaints Genitourinary: Genitourinary: Reports no additional male genitourinary complaints and Reports as per HPI Musculoskeletal: Musculoskeletal: Reports no additional musculoskeletal complaints and Reports as per HPI Integumentary/Breasts: Skin/Breast: Reports system reviewed and no additional complaints, except as docu and Reports as per HPI Neurologic: Reports system reviewed and no additional complaints, except as documented and Reports as per HPI Psychiatric: Psychiatric: Reports no additional psychiatric complaints and Reports as per HPI Exam Narrative: General: In no acute distress, well nourished Head: atraumatic, no encephalopathy Eyes: PERRLA, sclera injected ENT: moist mucous membranes, nasal passages clear Neck: supple, no JVD, no adenopathy, trachea midline Cardiac: Normal S1 and S2. No murmur, gallops or friction rubs, peripheral pulses intact. Respiratory: expiratory wheezing, tight cough, no other adventitious lung sounds, shortness of breath with talking and exertion, currently on 2L NC which is his baseline O2 requirement Gastrointestinal: soft, non-distended, non-tender, normoactive bowel sounds. : umaña catheter in place Extremities: moves all extremities well, no edema Skin: clean, dry, intact. No wounds or lesions. Neuro: Alert and oriented x4, cranial nerves intact, no neuro deficits. Psych: normal mood, normal affect, interactive Objective Data Vital Signs Vital Signs: Vital Signs - 24 hr 05/20/24 10:50 05/20/24 12:17 05/20/24 12:38 Temperature 97.9 F Pulse Rate 89 85 Respiratory Rate 25 H 20 Blood Pressure 124/77 Pulse Oximetry 98 100 Oxygen Delivery Nasal Cannula Nasal Cannula Oxygen Flow Rate 2 2 Fraction of Inspired Oxygen 05/20/24 13:12 05/20/24 13:42 05/20/24 17:30 Temperature Pulse Rate 91 104 H Respiratory Rate 17 20 Blood Pressure 130/83 Pulse Oximetry 100 97 Oxygen Delivery Nasal Cannula Oxygen Flow Rate 2 Fraction of Inspired Oxygen 05/20/24 20:00 05/20/24 22:00 05/20/24 23:30 Temperature 97.9 F Pulse Rate 87 84 Respiratory Rate 18 Blood Pressure 143/98 H Pulse Oximetry 100 Oxygen Delivery BiPAP Oxygen Flow Rate Fraction of Inspired Oxygen 05/21/24 00:00 05/21/24 04:00 05/21/24 06:00 Temperature 98.2 F Pulse Rate 79 82 73 Respiratory Rate 18 Blood Pressure 115/63 Pulse Oximetry 96 Oxygen Delivery Oxygen Flow Rate Fraction of Inspired Oxygen 05/21/24 08:20 05/21/24 08:33 Temperature Pulse Rate 89 Respiratory Rate Blood Pressure Pulse Oximetry 96 Oxygen Delivery Nasal Cannula Oxygen Flow Rate 2 Fraction of Inspired Oxygen 28 Intake/Output Intake/Output: Intake & Output 05/18/24 05/19/24 05/20/24 05/21/24 23:59 23:59 23:59 23:59 Intake Total 350 120 Output Total 700 2400 Balance -350 -9530 Meds/Results Medications: Active Medications Generic Name Dose Route Start Last Admin Trade Name Freq PRN Reason Stop Dose Admin Acetaminophen 650 mg 05/20/24 21:07 05/20/24 21:40 Acetaminophen 325 Mg Tablet PO 650 mg Q4H PRN Administration PAIN RATED 1-3 Albuterol/Ipratropium 3 ml 05/20/24 16:34 05/20/24 21:49 Ipratropium 0.5 Mg/Albuterol Sulfate 2.5 Mg Ampul.Neb 3 Ml NEBULIZE 3 ml Q6HRT PRN Administration Shortness Of Breath Or Wheezing Apixaban 5 mg 05/20/24 21:20 05/21/24 08:33 Apixaban 5 Mg Tablet PO 5 mg Q12HR ALEKSEY Administration Aspirin 81 mg 05/21/24 09:00 05/21/24 08:33 Aspirin 81 Mg Enteric Tablet PO 81 mg DAILY ALEKSEY Administration Baclofen 10 mg 05/20/24 21:10 05/20/24 21:41 Baclofen 10 Mg Tablet BY MOUTH 10 mg HS ALEKSEY Administration Bumetanide 1 mg 05/21/24 09:00 05/21/24 08:32 Bumetanide Inj 1 Mg/4 Ml Vial IV PUSH 1 mg QAM ALEKSEY Administration Dexamethasone 6 mg 05/21/24 08:00 05/21/24 08:36 Dexamethasone 2 Mg Tablet PO 05/30/24 08:01 6 mg DAILY@0800 ALEKSEY Administration Dextrose 12.5 gm 05/20/24 16:33 Dextrose 50% 25 Gm/50 Ml Syringe IV PUSH PRN PRN Hypoglycemia Protocol Doxycycline Hyclate 100 mg 05/21/24 12:00 Doxycycline Hyclate 100 Mg Tablet PO DAILY@1200 ALEKSEY Ferrous Sulfate 325 mg 05/21/24 09:00 05/21/24 08:32 Ferrous Sulfate [address] PO 325 mg DAILY ALEKSEY Administration Fluticasone Propionate 2 spray 05/20/24 21:10 05/21/24 08:31 Fluticasone Propionate 0.05% Na Spr 16 Gm Btl (*Bkc) NASAL 2 spray BID ALEKSEY Administration Fluticasone/Umeclidinium/Vilanterol 1 puff 05/21/24 09:00 05/21/24 08:20 Fluticasone/Umeclidin/Vilanter 100-62.5-25 Mcg Ellipta INHALATION 1 puff DAILY ALEKSEY Administration Folic Acid 0.4 mg 05/21/24 09:00 05/21/24 08:33 Folic Acid 0.4 Mg Tablet PO 0.4 mg DAILY ALEKSEY Administration Gabapentin 300 mg 05/20/24 21:25 05/21/24 08:33 Gabapentin 300 Mg Capsule PO 300 mg BID ALEKSEY Administration Glucagon 1 mg 05/20/24 16:33 Glucagon For Inj 1 Mg Vial IM PRN PRN Hypoglycemia Protocol Glucose 15 gm 05/20/24 16:33 Glucose Oral Gel 15 Gm Of Glucse In 37.5 Gm Tube PO PRN PRN Hypoglycemia Protocol Hydrocortisone 1 applic 05/20/24 21:07 Hydrocortisone 1% 30 Gm Cream TOPICAL DAILY PRN itching Dextrose 1,000 mls @ 100 mls/hr 05/20/24 16:33 Dextrose 5% 1,000 Ml IVPB PRN PRN Hypoglycemia Protocol Remdesivir 100 mg in 250 mls @ 250 mls/hr 05/21/24 22:00 IVPB 05/24/24 22:59 Q24H [facility] Insulin Aspart 2 - 5 units 05/20/24 17:00 05/21/24 08:10 Insulin Aspart (*Bkc) 100 Units/Ml SUB-Q Not Given TIDWM [facility] Protocol Insulin Aspart 1 - 2 units 05/20/24 21:00 05/20/24 20:34 Insulin Aspart (*Bkc) 100 Units/Ml SUB-Q Not Given HS ALEKSEY Protocol Lactobacillus Acidophilus 1 tablet 05/20/24 21:30 05/21/24 08:34 Acidophilus/Bulgaricus Chewable Tablet PO 1 tablet TID ALEKSEY Administration Loratadine 10 mg 05/21/24 09:00 05/21/24 08:32 Loratadine 10 Mg Tablet PO 10 mg DAILY ALEKSEY Administration Magnesium Oxide 400 mg 05/20/24 21:30 05/21/24 08:33 Magnesium Oxide 400 Mg Tablet PO 400 mg BID ALEKSEY Administration Metoprolol Succinate 50 mg 05/21/24 09:00 05/21/24 08:33 Metoprolol Succinate Ext Rel 50 Mg Tabcr PO 50 mg DAILY ALEKSEY Administration Miscellaneous Information 1 each 05/21/24 00:01 Lidocaine 4% Patch Nonform; Pharmacy Has Lidocaine 5% Patch. Ok To Switch? XX 06/20/24 00:00 CLARIFY ALEKSEY Miscellaneous Information 1 each 05/21/24 00:01 Lidocaine 4% Patch Nonform; Pharmacy Has Lidocaine 5% Patch. Ok To Switch? XX 06/20/24 00:00 CLARIFY [facility] Multi-Ingred Cream/Lotion/Oil/Oint 1 applic 05/21/24 09:00 05/21/24 08:36 Eucerin Cream 120 Gm Jar TOPICAL 1 applic DAILY ALEKSEY Administration Non-Formulary Medication 1 applic 05/20/24 21:07 Diclofenac Sodium TOPICAL ONCE PRN pain Non-Formulary Medication 1 patch 05/20/24 21:07 Lidocaine [Lidocaine Pain Relief] TOPICAL DAILY PRN pain Pantoprazole Sodium 40 mg 05/20/24 21:35 05/21/24 08:32 Pantoprazole 40 Mg Tablet PO 40 mg BID ALEKSEY Administration Pyridoxine HCl 100 mg 05/21/24 09:00 05/21/24 08:34 Pyridoxine Hcl 50 Mg Tablet PO 100 mg DAILY ALEKSEY Administration Roflumilast 500 mcg 05/21/24 09:00 05/21/24 08:32 Roflumilast 500 Mcg Tablet PO 500 mcg DAILY ALEKSEY Administration Spironolactone 12.5 mg 05/21/24 09:00 05/21/24 08:33 Spironolactone 12.5 Mg Tablet PO 12.5 mg DAILY ALEKSEY Administration Tamsulosin HCl 0.4 mg 05/20/24 21:35 05/20/24 21:41 Tamsulosin Hcl 0.4 Mg Capsule PO 0.4 mg HS AELKSEY Administration Triamcinolone Acetonide 1 applic 05/21/24 09:00 05/21/24 08:36 Triamcinolone Acet 0.1% Cream 15 Gm Tube TOPICAL 1 applic DAILY ALEKSEY Administration Vitamin D 1,000 units 05/21/24 09:00 05/21/24 08:32 Cholecalciferol 1,000 Units Tablet PO 1,000 units DAILY ALEKSEY Administration Radiology Results: ITS Impressions Chest X-Ray 05/20/24 12:22 Impression: Probable mild bibasilar pulmonary edema. Labs Labs: Laboratory Results - last 24 hr 05/20/24 05/20/24 05/20/24 11:22 11:23 12:32 WBC 7.6 RBC 3.65 L Hgb 10.8 L Hct 34.5 L MCV 94.5 MCH 29.6 MCHC 31.3 L RDW 17.1 H Plt Count 125 L MPV 13.0 H Immature Gran % (Auto) 0.5 Neut % (Auto) 77.6 H Lymph % (Auto) 4.7 L Weston % (Auto) 15.4 H Eos % (Auto) 1.1 Baso % (Auto) 0.7 Lymph # (Auto) 0.36 L Weston # (Auto) 1.2 H Eos # (Auto) 0.1 Baso # (Auto) 0.1 Abs Immat Gran (auto) 0.04 H Absolute Neuts (auto) 5.9 Absolute Nucleated RBC 0.000 Nucleated RBC % 0.0 % Immature Plt Fraction 12.5 H PT 20.2 H INR 1.7 APTT 33.5 Sodium 139 Potassium 4.1 Chloride 105 Carbon Dioxide 29 Anion Gap 5 BUN 43 H D Creatinine 1.90 H Estim Creat Clear Calc 39 Estimated GFR 35 L Glucose 129 H POC Capillary Glucose Hemoglobin A1c Calcium 9.6 Magnesium Ferritin Total Bilirubin 1.1 AST 38 ALT 26 Alkaline Phosphatase 113 Lactate Dehydrogenase Troponin I 0.039 H* C-Reactive Protein NT-Pro-B Natriuret Pep 93991 H Total Protein 7.0 Albumin 3.9 TSH (Reflex) Free T4 Influenza A (RT-PCR) Negative Influenza B (RT-PCR) Negative RSV (RT-PCR) Negative SARS-CoV-2 RNA (RT-PCR) Positive A 05/20/24 05/20/24 05/20/24 14:24 17:08 17:17 WBC RBC Hgb Hct MCV MCH MCHC RDW Plt Count MPV Immature Gran % (Auto) Neut % (Auto) Lymph % (Auto) Weston % (Auto) Eos % (Auto) Baso % (Auto) Lymph # (Auto) Weston # (Auto) Eos # (Auto) Baso # (Auto) Abs Immat Gran (auto) Absolute Neuts (auto) Absolute Nucleated RBC Nucleated RBC % % Immature Plt Fraction PT INR APTT Sodium Potassium Chloride Carbon Dioxide Anion Gap BUN Creatinine Estim Creat Clear Calc Estimated GFR Glucose POC Capillary Glucose 169 H Hemoglobin A1c 6.0 H Calcium Magnesium Ferritin Total Bilirubin AST ALT Alkaline Phosphatase Lactate Dehydrogenase Troponin I 0.036 H* 0.036 H* C-Reactive Protein NT-Pro-B Natriuret Pep Total Protein Albumin TSH (Reflex) Free T4 Influenza A (RT-PCR) Influenza B (RT-PCR) RSV (RT-PCR) SARS-CoV-2 RNA (RT-PCR) 05/20/24 05/21/24 05/21/24 20:22 05:53 08:03 WBC 4.7 RBC 3.67 L Hgb 10.8 L Hct 35.0 L MCV 95.4 MCH 29.4 MCHC 30.9 L RDW 17.3 H Plt Count 132 L MPV 13.0 H Immature Gran % (Auto) 0.4 Neut % (Auto) 86.9 H Lymph % (Auto) 6.8 L Weston % (Auto) 5.9 Eos % (Auto) 0.0 Baso % (Auto) 0.0 L Lymph # (Auto) 0.32 L Weston # (Auto) 0.3 Eos # (Auto) 0.0 Baso # (Auto) 0.0 Abs Immat Gran (auto) 0.02 Absolute Neuts (auto) 4.1 Absolute Nucleated RBC 0.000 Nucleated RBC % 0.0 % Immature Plt Fraction 13.6 H PT INR APTT Sodium 140 Potassium 4.2 Chloride 106 Carbon Dioxide 27 Anion Gap 7 BUN 47 H Creatinine 1.90 H Estim Creat Clear Calc 38 Estimated GFR 35 L Glucose 122 H POC Capillary Glucose 179 H 120 H Hemoglobin A1c Calcium 9.3 Magnesium 2.2 Ferritin 141.00 Total Bilirubin 0.8 AST 33 ALT 25 Alkaline Phosphatase 106 Lactate Dehydrogenase 139 Troponin I C-Reactive Protein 1.7 H NT-Pro-B Natriuret Pep Total Protein 7.0 Albumin 3.8 TSH (Reflex) 0.331 L Free T4 1.49 Influenza A (RT-PCR) Influenza B (RT-PCR) RSV (RT-PCR) SARS-CoV-2 RNA (RT-PCR) Quality VTE Prophylaxis VTE prophylaxis: pharmacologic ordered
[2024-05-21 12:04] LABS: Total Triiodothyronine (T3) 0.71 NG/ML (0.97-1.69)
[2024-05-21 12:07] LABS: Glucose Point of Care 135 mg/dl (65-105)
[2024-05-21] MEDS: LIDOCAINE 5% PATCH 1 PATCH TRANSDERM (12:27)
[2024-05-21] MEDS: DOXYCYCLINE HYCLATE 100 MG TABLET PO (12:27)
[2024-05-21 12:34] LABS: Iron 29 ug/dL (49-181)
[2024-05-21 12:46] LABS: Percent Iron Saturation 10 % (20-50)
[2024-05-21 13:43] LABS: Folic Acid 19.7 ng/mL (2.76->20)
--- NOTE | 2024-05-21 15:35 | PCCDE ---
Addendum entered by Dilia Patel RD, LDN, CDE 05/25/24 15:42: 05/25/24 POC range: 05/23 99-138 05/24: 119-212 05/25: 120-135 Meds include: Novolog 2-5 U TIDWm + 1-2 U HS; Solu-medrol, Remdesivir ~ 2:05 pm; pt not answering phone Spoke with RN (Taryn) pt without DM related questions. Enc'd to have pt call if questions. Discussed OP opportunities and consider DC glucometer Rx. Original Note: 05/21/24 Consult received 05/21/24 Admitted CHF Presents + COVID A1C: 6% (05/20) No home DM meds Med hx: Hypoxic Resp failure -> home O2, CAD, HTN, Afib, [place]-> CPAP, UC, RAYGOZA, Cirrhosis, CKD, Chronic anemia, NIDDM, MRSA POC: 05/20: 169-179 05/21: 120-135. Attempted to reach patient in room by phone 3:05 pm and again, 3:30 pm. No Answer.
--- NOTE | 2024-05-21 16:13 | P.CONUR_ITS ---
Assessment and Plan Assessment and plan (1) Acute kidney injury superimposed on chronic kidney disease: Code(s): N17.9 - Acute kidney failure, unspecified; N18.9 - Chronic kidney disease, unspecified Status: Acute (2) COVID-19: Code(s): U07.1 - COVID-19 Status: Acute (3) Benign prostatic hyperplasia with incomplete bladder emptying: Code(s): N40.1 - Benign prostatic hyperplasia with lower urinary tract symptoms; R39.14 - Feeling of incomplete bladder emptying Status: Acute Assessment and Plan: Continue Cabral catheter. Start Flomax. We will attempt a voiding trial before discharge home. Outpatient follow-up with Dr. Brown We will follow peripherally Urology Consult Note HPI Date Seen: 05/21/24 Requesting Physician: Ethan Minor MD Primary Care Provider: Cleo Funk DO Consult Narrative Narrative: Mason Keys is a 73 year old male with multiple medical comorbidities who is in the hospital with respiratory complications and COVID 19. He sees my partner Dr. Frandy Brown. He had recent circumcision and a postoperative visit within the last few weeks. He was found to be retaining urine on this admission and a Cabral catheter was placed. Residual urine is unknown. Patient does endorse some slowness of the urinary stream which has been going on for several months. Denies any blood in the urine or symptoms of infection. Tamsulosin has been started. 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 On long-term doxycycline. Chronic venous stasis dermatitis of both lower extremities Duodenal ulcer Iron (Fe) deficiency anemia Chronic anticoagulation Deep venous thrombosis Cerebrovascular accident Gastroesophageal reflux disease Chronic obstructive pulmonary disease Benign prostatic hyperplasia Obstructive sleep apnea treated with BiPAP with bleed in oxygen of 2 L Paroxysmal atrial fibrillation Obesity (BMI 30-39.9) Eczema Chronic kidney disease Chronic diastolic heart failure Echocardiogram 10/2023 demonstrated EF of 60-65% grade 1 diastolic dysfunction, atrial fibrillation, by atrial enlargement difficult study Pneumothorax on left Surgical History Surgical History History of cataract extraction with lens replacement History of bilateral hip replacements History of colonoscopy with polypectomy History of tracheostomy Status post excision of lipoma Neck. History of back surgery History of revision of total replacement of hip joint Family History Family History Mother Family history of cardiovascular disease Family history of coronary artery disease Father Family history of liver disease Sibling Hypertension Cerebrovascular accident Chronic obstructive pulmonary disease Social History Social History Social History: Surrogate medical decision maker: Trinity NhanFranciaDawna Ludmila, spouse. Code status: Full code. Smoking packs per day: 1 Smoking cigarettes per day: 20.0 Years smoked: 7 Smoking pack-years: 7.00 Smoking status: Never smoker Tobacco type: cigarettes Smokeless tobacco user: chewing tobacco Smoking end date: 06/06/81 Additional smoking assessment comments: He quit smoking when he was told he had COPD. Alcohol intake: never Substance use: never Substance use type: does not use Do You Feel Safe in your Home?: Yes Lack of Transportation: YES Lack of Food: Never True Current Housing: I Have Housing Concerned About Future Housing: No Difficulty Paying Gas/Electric Bills: No Difficulty Paying for Meds: No Currently Unemployed: No Education: Bachelor's Degree Difficulty w/ Childcare or Family Care: No Living arrangements: with family Additional living arrangements comments: Lives with spouse in [place]. They have been since 1973. They have a daughter and a son. Occupation/Education: retired Additional occupation/education comments: Retired from [employer]. [place] [employer] . Spiritual care concerns: No Agree to blood products: Yes Meds Home Medications and Allergies Home Medications ?Medication ?Instructions ?Recorded ?Confirmed ?Type ferrous sulfate 324 mg (65 mg 324 mg PO DAILY 04/05/19 05/20/24 History iron) tablet,delayed release tamsulosin 0.4 mg capsule (Flomax) 0.4 mg PO HS 04/05/19 05/20/24 History aspirin 81 mg tablet,delayed 81 mg PO DAILY 05/21/19 05/20/24 History release cetirizine 10 mg tablet 10 mg PO DAILY 08/04/19 05/20/24 History acetaminophen 325 mg capsule 650 mg PO Q4H PRN Pain 03/17/20 05/20/24 History bumetanide 0.5 mg tablet 0.5 mg PO BID 11/17/20 05/20/24 History inhalational spacing device #10 ea 11/17/20 05/20/24 Rx (Aerochamber MV spacer) magnesium oxide 400 mg PO BID 03/04/21 05/20/24 History pyridoxine (vitamin B6) 100 mg 100 mg PO DAILY 03/04/21 05/20/24 History tablet cholecalciferol (vitamin D3) 25 25 mcg PO DAILY 03/03/23 05/20/24 History mcg (1,000 unit) capsule folic acid 400 mcg tablet 0.4 mg PO DAILY 08/23/23 05/20/24 History nebulizer accessories #3 ea 08/23/23 05/20/24 Rx baclofen 10 mg tablet See Rx Instructions .Route 11/11/23 05/20/24 Rx .COMPLEX #90 tabs metoprolol succinate 50 mg 50 mg PO DAILY #180 tabs 12/05/23 05/20/24 Rx tablet,extended release 24 hr omeprazole 40 mg capsule,delayed 40 mg PO DAILY 12/27/23 05/20/24 History release Breztri Aerosphere 160 2 inh inhalation Q12H #10.7 grams 01/18/24 05/20/24 Rx mcg-9mcg-4.8mcg/actuation HFA aerosol inhaler (dozttucbdk-jfhqujlr-vkxnpvzmtl) doxycycline hyclate 100 mg capsule 100 mg PO DAILY 01/19/24 05/20/24 History fluticasone propionate 50 See Rx Instructions .Route .COMPLEX 01/19/24 05/20/24 History mcg/actuation nasal spray,suspension (Allergy Relief (fluticasone)) gabapentin 300 mg capsule 300 mg PO BID 01/19/24 05/20/24 History spironolactone 25 mg tablet 12.5 mg PO DAILY 01/19/24 05/20/24 History mesalamine 4 gram/60 mL enema 4 g RECTAL PRN PRN Diarrhea 02/15/24 05/20/24 History (Rowasa) Lactobacillus acidophilus 100 mg PO TID 04/06/24 05/20/24 History apixaban 5 mg tablet (Eliquis) 5 mg PO BID #180 tabs 04/09/24 05/20/24 Rx roflumilast 500 mcg tablet 500 mcg PO DAILY 90 days #90 tabs 04/09/24 05/20/24 Rx (Daliresp) benzonatate 200 mg capsule 200 mg PO TID PRN cough 05/14/24 05/20/24 History albuterol sulfate 2.5 mg/3 mL 2.5 mg inhalation QID shortness of 05/20/24 05/20/24 History (0.083 %) solution for nebulization breath or wheezing diclofenac sodium 3 % topical gel 1 applic topical ONCE PRN pain 05/20/24 05/20/24 History hydrocortisone 1 % topical cream 1 applic topical DAILY PRN itching 05/20/24 05/20/24 History (Anti-Itch (hydrocortisone)) lanolin alcohols-mineral 1 applic topical DAILY 05/20/24 05/20/24 History oil-w.petrolatum-ceresin topical cream (Eucerin topical cream) lidocaine 4 % topical patch 1 patch topical DAILY PRN pain 05/20/24 05/20/24 History (Lidocaine Pain Relief) triamcinolone acetonide 0.1 % 1 applic topical DAILY 05/20/24 05/20/24 History topical cream Allergies Allergy/AdvReac Type Severity Reaction Status Date / Time clindamycin Allergy Intermediate Rash Verified 05/14/24 15:38 levofloxacin Allergy Intermediate Swelling Verified 05/14/24 15:38 of the Eye Penicillins Allergy Intermediate Hives Verified 05/14/24 15:38 scopolamine Allergy Mild Hallucinati Verified 05/14/24 15:38 ng tobramycin Allergy Mild EYE REDNESS Verified 05/14/24 15:38 pepper (genus Capsicum) AdvReac Intermediate Nausea and Verified 05/14/24 15:38 Vomiting dust mites Allergy Swelling Uncoded 04/19/24 07:06 cats AdvReac Mild REDNESS OF Uncoded 04/19/24 07:06 THE EYES/WATERING Vital Signs Vital Signs - 24 hr 05/20/24 17:30 05/20/24 20:00 05/20/24 22:00 Temperature 97.9 F Pulse Rate 87 84 Respiratory Rate 18 Blood Pressure 143/98 H Pulse Oximetry 97 100 Oxygen Delivery Nasal Cannula Oxygen Flow Rate 2 Fraction of Inspired Oxygen 05/20/24 23:30 05/21/24 00:00 05/21/24 04:00 Temperature Pulse Rate 79 82 Respiratory Rate Blood Pressure Pulse Oximetry Oxygen Delivery BiPAP Oxygen Flow Rate Fraction of Inspired Oxygen 05/21/24 06:00 05/21/24 08:04 05/21/24 08:20 Temperature 98.2 F Pulse Rate 73 89 Respiratory Rate 18 Blood Pressure 115/63 Pulse Oximetry 96 96 Oxygen Delivery Nasal Cannula Oxygen Flow Rate 2 Fraction of Inspired Oxygen 28 05/21/24 08:33 05/21/24 08:36 05/21/24 12:01 Temperature Pulse Rate 89 77 Respiratory Rate 18 Blood Pressure Pulse Oximetry 96 Oxygen Delivery Nasal Cannula Oxygen Flow Rate 2 Fraction of Inspired Oxygen 05/21/24 14:00 Temperature 97.7 F Pulse Rate 70 Respiratory Rate 18 Blood Pressure 128/72 Pulse Oximetry 96 Oxygen Delivery Oxygen Flow Rate Fraction of Inspired Oxygen Exam 2 Const: General: cooperative, comfortable and ill appearing; No healthy appearing Nutritional Appearance: obese Orientation/consciousness: patient oriented x3 Limitations: no limitations (Only due to hospitalize status) HENMT: Head: normal to inspection Eyes: General: appearance normal, both eyes and all related structures Neck: Neck: normal visual inspection and full ROM Resp: Effort & Inspection: normal respiratory effort, able to speak in complete sentences and Actively coughing GI: Inspection: normal to inspection Urinary Catheter: Urinary Catheter: patent and draining and urine clear Skin: General skin exam: normal color Neuro: General: patient oriented x3 and moves all extremities Extrem: General: full ROM Psych: Appearance: grossly normal Results Labs 05/21/24 05:53 05/21/24 05:53 Labs: Short CBC 05/21/24 Range/Units 05:53 WBC 4.7 (4.5-10.0) K/mm3 Hgb 10.8 L (14.0-18.0) g/dL Hct 35.0 L (42.0-52.0) % Plt Count 132 L (150-375) k/mm3 BMP 05/21/24 05:53 Sodium 140 Potassium 4.2 Chloride 106 Carbon Dioxide 27 BUN 47 H Creatinine 1.90 H Glucose 122 H Calcium 9.3 Cardiac Enzymes 05/20/24 Range/Units 17:17 Troponin I 0.036 H* (0.000-0.034) ng/mL Liver Function 05/21/24 Range/Units 05:53 Total Bilirubin 0.8 (0.2-1.3) mg/dL AST 33 (17-59) U/L ALT 25 (6-50) U/L Alkaline Phosphatase 106 (38-126) U/L Albumin 3.8 (3.5-5.1) g/dL
[2024-05-21 17:07] LABS: Glucose Point of Care 150 mg/dl (65-105)
[2024-05-21] MEDS: BACLOFEN 10 MG TABLET BY MOUTH (20:50)
[2024-05-21] MEDS: TAMSULOSIN HCL 0.4 MG CAPSULE PO (20:50)
[2024-05-21] MEDS: REMDESIVIR 100 MG/NS 250 ML 100 MG/250 ML BAG 250 MG IVPB (20:52)
[2024-05-21 21:21] LABS: Glucose Point of Care 174 mg/dl (65-105)
[2024-05-21] MEDS: IPRATROPIUM 0.5 MG/ALBUTEROL SULFATE 2.5 MG AMPUL.NEB 3 ML NEBULIZE (21:25)
[2024-05-22] VITALS (10 sets, daily range): BP systolic 123–128; BP diastolic 74–83; PULSE 78–110; RESP 18–20; TEMP 36.6; O2SAT 93–99
[2024-05-22 05:38] LABS: Alanine Aminotransferase 25 U/L (6-50); Albumin Level 3.7 g/dL (3.5-5.1); Alkaline Phosphatase 107 U/L (38-126); Aspartate Amino Transferase 32 U/L (17-59); Bilirubin,Total 0.7 mg/dL (0.2-1.3)
[2024-05-22 05:45] LABS: INR 1.7; Prothrombin Time 20.9 Seconds (11.1-14.7)
[2024-05-22 08:18] LABS: Glucose Point of Care 121 mg/dl (65-105)
[2024-05-22] MEDS: CHOLECALCIFEROL 1,000 UNITS TABLET 1000 UNITS PO (08:29)
[2024-05-22] MEDS: LORATADINE 10 MG TABLET PO (08:29)
[2024-05-22] MEDS: SPIRONOLACTONE 12.5 MG TABLET PO (08:29)
[2024-05-22] MEDS: dexAMETHasone 2 MG TABLET 6 MG PO (08:29)
[2024-05-22] MEDS: METOPROLOL SUCCINATE EXT REL 50 MG TABCR PO (08:29)
[2024-05-22] MEDS: PYRIDOXINE HCL 50 MG TABLET 100 MG PO (08:29)
[2024-05-22] MEDS: GABAPENTIN 300 MG CAPSULE PO ×2 (08:29→17:24)
[2024-05-22] MEDS: MAGNESIUM OXIDE 400 MG TABLET PO ×2 (08:29→17:24)
[2024-05-22] MEDS: ASPIRIN 81 MG ENTERIC TABLET PO (08:29)
[2024-05-22] MEDS: FERROUS SULFATE 325 MG TABLET DR PO (08:29)
[2024-05-22] MEDS: FOLIC ACID 0.4 MG TABLET PO (08:29)
[2024-05-22] MEDS: PANTOPRAZOLE 40 MG TABLET PO ×2 (08:30→17:24)
[2024-05-22] MEDS: ACIDOPHILUS/BULGARICUS CHEWABLE TABLET 1 TABLET PO ×3 (08:30→17:24)
[2024-05-22] MEDS: ROFLUMILAST 500 MCG TABLET PO (08:30)
[2024-05-22] MEDS: APIXABAN 5 MG TABLET PO ×2 (08:30→20:01)
[2024-05-22] MEDS: BUMETANIDE INJ 1 MG/4 ML VIAL IV PUSH (08:30)
[2024-05-22] MEDS: EUCERIN CREAM 120 GM JAR 1 APPLIC TOPICAL (08:31)
[2024-05-22] MEDS: TRIAMCINOLONE ACET 0.1% CREAM 15 GM TUBE 1 APPLIC TOPICAL (08:31)
[2024-05-22] MEDS: LIDOCAINE 5% PATCH 1 PATCH TRANSDERM (08:31)
[2024-05-22] MEDS: FLUTICASONE PROPIONATE 0.05% NA SPR 16 GM BTL (*BKC) 2 SPRAY NASAL ×2 (08:31→17:24)
[2024-05-22] MEDS: FLUTICASONE/UMECLIDIN/VILANTER 100-62.5-25 MCG ELLIPTA 1 PUFF INHALATION (09:37)
[2024-05-22] MEDS: IPRATROPIUM 0.5 MG/ALBUTEROL SULFATE 2.5 MG AMPUL.NEB 3 ML NEBULIZE ×2 (09:38→15:30)
--- NOTE | 2024-05-22 11:12 | P.PNIM_ITS ---
Progress Note: A&P Assessment and Plan (1) Acute on chronic respiratory failure with hypoxia and hypercapnia: Code(s): J96.21 - Acute and chronic respiratory failure with hypoxia; J96.22 - Acute and chronic respiratory failure with hypercapnia Status: Acute Assessment and Plan: * respiratory panel positive for COVID-19 * elevated proBNP 15,900-- continue diuresis Bumex * continue to wean O2 for sat greater than 90% * currently on 2 L nasal cannula now * continue DuoNeb breathing treatments * continue doxycycline * was given a loading dose of Solu-Medrol 125 mg IV push in the ED * continue Decadron and remdesivir for the COVID-19 * respiratory panel was negative for influenza a and B, RSV (2) COVID-19: Code(s): U07.1 - COVID-19 Status: Acute Assessment and Plan: * respiratory panel positive for COVID 19 * continue Decadron and remdesivir as stated above * see above plan of care (3) Acute exacerbation of CHF (congestive heart failure): Qualifiers: Heart failure type: diastolic Qualified Code(s): I50.33 - Acute on chronic diastolic (congestive) heart failure Code(s): I50.9 - Heart failure, unspecified Status: Acute Assessment and Plan: * echocardiogram reviewed from 11/04/2023 shown normal LV systolic function with an estimated EF of 60-65%, grade 1 diastolic dysfunction * initial proBNP 31310 * continue Bumex IV for now * continue metoprolol, spironolactone, Bumex (4) Chronic obstructive pulmonary disease: Qualifiers: COPD type: unspecified COPD Qualified Code(s): J44.9 - Chronic obstructive pulmonary disease, unspecified Code(s): J44.9 - Chronic obstructive pulmonary disease, unspecified Status: Chronic Assessment and Plan: * continue DuoNeb breathing treatments * currently on Decadron 6 mg daily * continue Flonase and Claritin * continue roflumilast (5) Acute kidney injury superimposed on chronic kidney disease: Code(s): N17.9 - Acute kidney failure, unspecified; N18.9 - Chronic kidney disease, unspecified Status: Acute Assessment and Plan: * creatinine currently 1.90, EGFR 35 * baseline creatinine appears to be 1.2-1.3, EGFR 54-59 * continue to trend * renally dose medications as needed * avoid testing with IV contrast and nephrotoxic medications (6) Diabetes mellitus: Code(s): E11.9 - Type 2 diabetes mellitus without complications Status: Acute Assessment and Plan: * Blood sugars ranging 120-179 * Hgb A1C 6.0 * Accu checks AC/HS * moderate dose SSI ordered * hypoglycemic protocol in place * Diabetic diet ordered * not on any home medications currently, this is a new diagnosis- he will likely need metformin upon discharge as well as a glucometer with accessories * motorcycle tester consult * dietitian consult (7) Thrombocytopenia: Code(s): D69.6 - Thrombocytopenia, unspecified Status: Acute Assessment and Plan: * platelet count 132 today * his platelet count was in normal range back in January of this year * will check vitamin B12 * patient is currently on folic acid, we will go ahead and check another folate today (8) Chronic anemia: Code(s): D64.9 - Anemia, unspecified Status: Chronic Assessment and Plan: * hemoglobin 10.8 * not on any home medication * could be due to chronic kidney disease however is on Eliquis for his AFib * will check vitamin B12 and folic acid, ferritin, iron * TSH 0.331, free T4 1.49, total T3 is pending-- not currently on any thyroid m edications. Will continue to monitor. (9) Benign prostatic hyperplasia with urinary retention: Code(s): N40.1 - Benign prostatic hyperplasia with lower urinary tract symptoms; R33.8 - Other retention of urine Status: Chronic Assessment and Plan: * continue tamsulosin * Currently has umaña catheter in place due to urinary retention * Follows with Dr. Brown * Will consult Urology for further guidance. (10) Paroxysmal atrial fibrillation: Code(s): I48.0 - Paroxysmal atrial fibrillation Status: Chronic Assessment and Plan: * continue Eliquis and metoprolol (11) Liver cirrhosis secondary to nonalcoholic steatohepatitis (RAYGOZA): Code(s): K75.81 - Nonalcoholic steatohepatitis (RAYGOZA); K74.60 - Unspecified cirrhosis of liver Status: Chronic Assessment and Plan: * continue spironolactone * trend liver enzymes (12) Obstructive sleep apnea treated with BiPAP: Code(s): G47.33 - Obstructive sleep apnea (adult) (pediatric) Status: Chronic Assessment and Plan: * CPAP ordered for night use Time Spent With Patient Time with patient: 25 - 35 minutes Subjective Date/time seen: 05/22/24 11:12 Interval history: Interval history: this is a 73-year-old male who presented to the hospital on 05/20/2024 with co mplaints of shortness a breath. Workup in the hospital included a chest x-ray which showed probable mild bibasilar pulmonary edema. Initial labs shown a normal white blood cell count of 7.6, hemoglobin 10.8, platelet count 125, creatinine 1.9, EGFR 35, troponin 0.039> 0.036> 0.036, proBNP 07575, C reactive protein 1.7, TSH 0.331, free T4 1.49, total T3 pending. respiratory panel was negative for influenza a and B, RSV. He was positive for COVID. EKG showed AFib with a rate of 91, QTC 401. Patient was given nebulizer treatment, loading dose of Solu-Medrol 125 mg IV push x1, 1 mg of Bumex, and started on remdesivir while in the ED. Subjective: Patient denies any new complaints today. Labs reviewed. Review of Systems Review of Systems: All systems reviewed & are unremarkable except as noted in HPI and below Constitutional: Constitutional: Reports as per HPI and Reports no additional constitutional complaints Eyes: Eyes: Reports as per HPI and Reports no additional eye complaints ENT: Reports system reviewed and no additional complaints, except as documented and Reports as per HPI Cardiovascular: Cardiovascular: Reports as per HPI and Reports no additional cardiovascular complaints Respiratory: Respiratory: Reports as per HPI and Reports no additional respiratory complaints Gastrointestinal: Gastrointestinal: Reports as per HPI and Reports no additional gastrointestinal complaints Genitourinary: Genitourinary: Reports no additional male genitourinary complaints and Reports as per HPI Musculoskeletal: Musculoskeletal: Reports no additional musculoskeletal complaints and Reports as per HPI Integumentary/Breasts: Skin/Breast: Reports system reviewed and no additional complaints, except as docu and Reports as per HPI Neurologic: Reports system reviewed and no additional complaints, except as documented and Reports as per HPI Psychiatric: Psychiatric: Reports no additional psychiatric complaints and Reports as per HPI Exam Narrative: General: In no acute distress, well nourished Cardiac: Normal S1 and S2. No murmur, gallops or friction rubs, peripheral pulses intact. Respiratory: mild expiratory wheezing, productive cough, no other adventitious lung sounds, shortness of breath with talking and exertion, currently on 2L NC which is his baseline O2 requirement Gastrointestinal: soft, non-distended, non-tender, normoactive bowel sounds. : umaña catheter in place Neuro: Alert and oriented x4 Objective Data Vital Signs Vital Signs: Vital Signs - 24 hr 05/21/24 12:01 05/21/24 14:00 05/21/24 16:04 Temperature 97.7 F Pulse Rate 77 70 86 Respiratory Rate 18 Blood Pressure 128/72 Pulse Oximetry 96 Oxygen Delivery Oxygen Flow Rate 05/21/24 20:00 05/21/24 21:13 05/21/24 21:25 Temperature 98.3 F Pulse Rate 80 82 80 Respiratory Rate 18 20 Blood Pressure 124/79 Pulse Oximetry 100 Oxygen Delivery Oxygen Flow Rate 05/21/24 21:29 05/21/24 21:31 05/21/24 23:53 Temperature Pulse Rate 82 65 Respiratory Rate 20 28 H Blood Pressure Pulse Oximetry 98 94 Oxygen Delivery Nasal Cannula BiPAP Oxygen Flow Rate 2 05/22/24 00:00 05/22/24 04:00 05/22/24 04:12 Temperature 97.8 F Pulse Rate 98 84 81 Respiratory Rate 20 Blood Pressure 123/83 Pulse Oximetry 93 Oxygen Delivery Oxygen Flow Rate 05/22/24 08:00 05/22/24 08:29 05/22/24 09:40 Temperature Pulse Rate 81 Respiratory Rate Blood Pressure Pulse Oximetry 98 98 Oxygen Delivery Nasal Cannula Nasal Cannula Oxygen Flow Rate 2 2 05/22/24 09:40 Temperature Pulse Rate Respiratory Rate 20 Blood Pressure Pulse Oximetry Oxygen Delivery Oxygen Flow Rate Intake/Output Intake/Output: Intake & Output 05/19/24 05/20/24 05/21/24 05/22/24 23:59 23:59 23:59 23:59 Intake Total 350 600 510 Output Total 700 3150 600 Balance -350 -2550 -90 Meds/Results Medications: Active Medications Generic Name Dose Route Start Last Admin Trade Name Freq PRN Reason Stop Dose Admin Acetaminophen 650 mg 05/20/24 21:07 05/20/24 21:40 Acetaminophen 325 Mg Tablet PO 650 mg Q4H PRN Administration PAIN RATED 1-3 Albuterol/Ipratropium 3 ml 05/20/24 16:34 12/17/24 09:38 Ipratropium 0.5 Mg/Albuterol Sulfate 2.5 Mg Ampul.Neb 3 Ml NEBULIZE 3 ml Q6HRT PRN Administration Shortness Of Breath Or Wheezing Apixaban 5 mg 05/20/24 21:20 05/22/24 08:30 Apixaban 5 Mg Tablet PO 5 mg Q12HR ALEKSEY Administration Aspirin 81 mg 05/21/24 09:00 05/22/24 08:29 Aspirin 81 Mg Enteric Tablet PO 81 mg DAILY ALEKSEY Administration Baclofen 10 mg 05/20/24 21:10 05/21/24 20:50 Baclofen 10 Mg Tablet BY MOUTH 10 mg HS ALEKSEY Administration Bumetanide 1 mg 05/21/24 09:00 05/22/24 08:30 Bumetanide Inj 1 Mg/4 Ml Vial IV PUSH 1 mg QAM ALEKSEY Administration Dexamethasone 6 mg 05/21/24 08:00 05/22/24 08:29 Dexamethasone 2 Mg Tablet PO 05/30/24 08:01 6 mg DAILY@0800 ALEKSEY Administration Dextrose 12.5 gm 05/20/24 16:33 Dextrose 50% 25 Gm/50 Ml Syringe IV PUSH PRN PRN Hypoglycemia Protocol Doxycycline Hyclate 100 mg 05/21/24 12:00 05/21/24 12:27 Doxycycline Hyclate 100 Mg Tablet PO 100 mg DAILY@1200 ALEKSEY Administration Ferrous Sulfate 325 mg 05/21/24 09:00 05/22/24 08:29 Ferrous Sulfate [address] PO 325 mg DAILY ALEKSEY Administration Fluticasone Propionate 2 spray 05/20/24 21:10 05/22/24 08:31 Fluticasone Propionate 0.05% Na Spr 16 Gm Btl (*Bkc) NASAL 2 spray BID ALEKSEY Administration Fluticasone/Umeclidinium/Vilanterol 1 puff 05/21/24 09:00 05/22/24 09:37 Fluticasone/Umeclidin/Vilanter 100-62.5-25 Mcg Ellipta INHALATION 1 puff DAILY ALEKSEY Administration Folic Acid 0.4 mg 05/21/24 09:00 05/22/24 08:29 Folic Acid 0.4 Mg Tablet PO 0.4 mg DAILY ALEKSEY Administration Gabapentin 300 mg 05/20/24 21:25 05/22/24 08:29 Gabapentin 300 Mg Capsule PO 300 mg BID ALEKSEY Administration Glucagon 1 mg 05/20/24 16:33 Glucagon For Inj 1 Mg Vial IM PRN PRN Hypoglycemia Protocol Glucose 15 gm 05/20/24 16:33 Glucose Oral Gel 15 Gm Of Glucse In 37.5 Gm Tube PO PRN PRN Hypoglycemia Protocol Hydrocortisone 1 applic 05/20/24 21:07 Hydrocortisone 1% 30 Gm Cream TOPICAL DAILY PRN itching Dextrose 1,000 mls @ 100 mls/hr 05/20/24 16:33 Dextrose 5% 1,000 Ml IVPB PRN PRN Hypoglycemia Protocol Remdesivir 100 mg in 250 mls @ 250 mls/hr 05/21/24 22:00 05/21/24 20:52 IVPB 05/24/24 22:59 250 mls/hr Q24H ALEKSEY Administration Insulin Aspart 3 - 6 units 05/21/24 12:00 05/22/24 08:29 Insulin Aspart (*Bkc) 100 Units/Ml SUB-Q Not Given TIDWM ALEKSEY Protocol Insulin Aspart 1 - 3 units 05/21/24 21:00 05/21/24 21:56 Insulin Aspart (*Bkc) 100 Units/Ml SUB-Q Not Given HS ALEKSEY Protocol Lactobacillus Acidophilus 1 tablet 05/20/24 21:30 05/22/24 08:30 Acidophilus/Bulgaricus Chewable Tablet PO 1 tablet TID ALEKSEY Administration Lidocaine 1 patch 05/21/24 12:05 05/22/24 08:31 Lidocaine 5% Patch TRANSDERM 1 patch DAILY ALEKSEY Administration Loratadine 10 mg 05/21/24 09:00 05/22/24 08:29 Loratadine 10 Mg Tablet PO 10 mg DAILY ALEKSEY Administration Magnesium Oxide 400 mg 05/20/24 21:30 05/22/24 08:29 Magnesium Oxide 400 Mg Tablet PO 400 mg BID ALEKSEY Administration Metoprolol Succinate 50 mg 05/21/24 09:00 05/22/24 08:29 Metoprolol Succinate Ext Rel 50 Mg Tabcr PO 50 mg DAILY ALEKSEY Administration Miscellaneous Information 0 each 05/21/24 00:01 Diclofenac Gel 3% Is Non-Formulary. We Stock 1% Or Use Pt Own Supply? XX 06/20/24 00:00 CLARIFY ALEKSEY Multi-Ingred Cream/Lotion/Oil/Oint 1 applic 05/21/24 09:00 05/22/24 08:31 Eucerin Cream 120 Gm Jar TOPICAL 1 applic DAILY ALEKSEY Administration Non-Formulary Medication 1 applic 05/20/24 21:07 Diclofenac Sodium TOPICAL ONCE PRN pain Pantoprazole Sodium 40 mg 05/20/24 21:35 05/22/24 08:30 Pantoprazole 40 Mg Tablet PO 40 mg BID ALEKSEY Administration Pyridoxine HCl 100 mg 05/21/24 09:00 05/22/24 08:29 Pyridoxine Hcl 50 Mg Tablet PO 100 mg DAILY ALEKSEY Administration Roflumilast 500 mcg 05/21/24 09:00 05/22/24 08:30 Roflumilast 500 Mcg Tablet PO 500 mcg DAILY ALEKSEY Administration Spironolactone 12.5 mg 05/21/24 09:00 05/22/24 08:29 Spironolactone 12.5 Mg Tablet PO 12.5 mg DAILY ALEKSEY Administration Tamsulosin HCl 0.4 mg 05/20/24 21:35 05/21/24 20:50 Tamsulosin Hcl 0.4 Mg Capsule PO 0.4 mg HS ALEKSEY Administration Triamcinolone Acetonide 1 applic 05/21/24 09:00 05/22/24 08:31 Triamcinolone Acet 0.1% Cream 15 Gm Tube TOPICAL 1 applic DAILY ALEKSEY Administration Vitamin D 1,000 units 05/21/24 09:00 05/22/24 08:29 Cholecalciferol 1,000 Units Tablet PO 1,000 units DAILY ALEKSEY Administration Radiology Results: ITS Impressions Chest X-Ray 05/20/24 12:22 Impression: Probable mild bibasilar pulmonary edema. Labs Labs: Laboratory Results - last 24 hr 05/21/24 05/21/24 05/21/24 05:52 05:53 12:04 PT INR POC Capillary Glucose 135 H Iron 29 L TIBC 291 % Saturation 10 L Total Bilirubin Direct Bilirubin AST ALT Alkaline Phosphatase Total Protein Albumin Vitamin B12 459.0 Folate 19.7 Total T3 0.71 L 05/21/24 05/21/24 05/22/24 17:03 21:12 04:38 PT 20.9 H INR 1.7 POC Capillary Glucose 150 H 174 H Iron TIBC % Saturation Total Bilirubin 0.7 Direct Bilirubin 0.0 AST 32 ALT 25 Alkaline Phosphatase 107 Total Protein 7.0 Albumin 3.7 Vitamin B12 Folate Total T3 05/22/24 08:13 PT INR POC Capillary Glucose 121 H Iron TIBC % Saturation Total Bilirubin Direct Bilirubin AST ALT Alkaline Phosphatase Total Protein Albumin Vitamin B12 Folate Total T3 Quality VTE Prophylaxis VTE prophylaxis: pharmacologic ordered
[2024-05-22 11:56] LABS: Magnesium 2.2 mg/dL (1.6-2.3)
[2024-05-22 12:00] LABS: Basophils Percent Auto 0.1 % (0.2-1.2); Eosinophils Percent Auto 0.1 % (0-4.4); Hematocrit 39.7 % (42.0-52.0); Hemoglobin 12.5 g/dL (14.0-18.0); Immature Granulocyte Absolute 0.05 K/mm3 (0.00-0.031); Immature Granulocyte Percent A 0.4 % (0-0.5); Immature Platelet Fraction Pct 14.9 % (0.9-11.2); Lymphocytes Absolute Auto 0.43 K/mm3 (0.9-3.2); Lymphocytes Percent Auto 3.7 % (18.3-44.2); Mean Corpuscular HGB Conc 31.5 g/dl (32-36); Mean Corpuscular Hemoglobin 29.8 pg (26-34); Mean Corpuscular Volume 94.5 fl (80-100); Mean Platelet Volume 13.5 fl (7.4-10.4); Monocytes Absolute Auto 0.8 K/mm3 (0.1-0.6); Monocytes Percent Auto 6.6 % (2.6-8.5); Neutrophils Absolute Auto 10.4 K/mm3 (1.3-6.7); Neutrophils Percent Auto 89.1 % (45.5-73.1); Platelet Count Result 160 k/mm3 (150-375); Red Cell Distribution Width 17.4 % (11.5-14.5); White Blood Count 11.7 K/mm3 (4.5-10.0)
[2024-05-22 12:05] LABS: Alanine Aminotransferase 30 U/L (6-50); Albumin Level 4.3 g/dL (3.5-5.1); Alkaline Phosphatase 119 U/L (38-126); Anion Gap 9 mmol/L (4-12); Aspartate Amino Transferase 40 U/L (17-59); Bilirubin,Total 0.7 mg/dL (0.2-1.3); Blood Urea Nitrogen 59 mg/dL (9-20); Calcium 9.7 mg/dL (8.4-10.2); Carbon Dioxide 28 mmol/L (22-30); Chloride 100 mmol/L (98-107); Estimated CRCL calculation 36 ml/min; Estimated Glomerular Filt Rate 33; Glucose 184 mg/dL (65-110); Potassium 4.6 mmol/L (3.4-5.0); Sodium 137 mmol/L (137-145)
[2024-05-22 12:17] LABS: Glucose Point of Care 160 mg/dl (65-105)
[2024-05-22 12:20] LABS: Macrocytosis 1+ (NORMAL); Platelet Estimate Adequate (Adequate); Schistocytes None Seen
[2024-05-22] MEDS: DOXYCYCLINE HYCLATE 100 MG TABLET PO (12:45)
[2024-05-22] MEDS: ACETAMINOPHEN 325 MG TABLET 650 MG PO ×3 (12:46→21:08)
--- NOTE | 2024-05-22 12:59 | PCDIET ---
Nutrition consult. Patient called due to COVID+. Attempted phone calls 0900, [phone], 1300 no answer. Patient is tolerating [facility] diet. Agree with diet orders. Will attached patient instruction. Will continue to try and reach patient prior to discharge. Thank you for consult.
[2024-05-22 16:37] LABS: Glucose Point of Care 156 mg/dl (65-105)
[2024-05-22] MEDS: BACLOFEN 10 MG TABLET BY MOUTH (20:01)
[2024-05-22] MEDS: TAMSULOSIN HCL 0.4 MG CAPSULE PO (20:01)
[2024-05-22 20:39] LABS: Glucose Point of Care 173 mg/dl (65-105)
[2024-05-22] MEDS: REMDESIVIR 100 MG/NS 250 ML 100 MG/250 ML BAG 250 MG IVPB (21:08)
[2024-05-23] VITALS (10 sets, daily range): BP systolic 126–133; BP diastolic 73–87; PULSE 80–91; RESP 18–20; TEMP 36.3–36.5; O2SAT 93–100
[2024-05-23 05:55] LABS: Basophils Percent Auto 0.1 % (0.2-1.2); Hematocrit 34.7 % (42.0-52.0); Hemoglobin 10.9 g/dL (14.0-18.0); Immature Granulocyte Absolute 0.06 K/mm3 (0.00-0.031); Immature Granulocyte Percent A 0.7 % (0-0.5); Immature Platelet Fraction Pct 16.2 % (0.9-11.2); Lymphocytes Absolute Auto 0.43 K/mm3 (0.9-3.2); Lymphocytes Percent Auto 4.9 % (18.3-44.2); Mean Corpuscular HGB Conc 31.4 g/dl (32-36); Mean Corpuscular Hemoglobin 29.9 pg (26-34); Mean Corpuscular Volume 95.1 fl (80-100); Mean Platelet Volume 13.5 fl (7.4-10.4); Monocytes Absolute Auto 0.8 K/mm3 (0.1-0.6); Monocytes Percent Auto 8.6 % (2.6-8.5); Neutrophils Absolute Auto 7.6 K/mm3 (1.3-6.7); Neutrophils Percent Auto 85.7 % (45.5-73.1); Platelet Count Result 130 k/mm3 (150-375); Red Blood Count 3.65 M/mm3 (4.6-6.20); White Blood Count 8.9 K/mm3 (4.5-10.0)
[2024-05-23 06:05] LABS: Alanine Aminotransferase 28 U/L (6-50); Albumin Level 3.5 g/dL (3.5-5.1); Alkaline Phosphatase 102 U/L (38-126); Anion Gap 2 mmol/L (4-12); Aspartate Amino Transferase 33 U/L (17-59); Bilirubin,Total 0.7 mg/dL (0.2-1.3); Blood Urea Nitrogen 57 mg/dL (9-20); Calcium 9.1 mg/dL (8.4-10.2); Carbon Dioxide 29 mmol/L (22-30); Chloride 103 mmol/L (98-107); Estimated CRCL calculation 38 ml/min; Estimated Glomerular Filt Rate 35; Glucose 116 mg/dL (65-110); Potassium 4.2 mmol/L (3.4-5.0); Sodium 134 mmol/L (137-145)
[2024-05-23 07:59] LABS: Glucose Point of Care 99 mg/dl (65-105)
[2024-05-23] MEDS: PYRIDOXINE HCL 50 MG TABLET 100 MG PO (09:19)
[2024-05-23] MEDS: METOPROLOL SUCCINATE EXT REL 50 MG TABCR PO (09:19)
[2024-05-23] MEDS: GABAPENTIN 300 MG CAPSULE PO ×2 (09:19→17:26)
[2024-05-23] MEDS: ACIDOPHILUS/BULGARICUS CHEWABLE TABLET 1 TABLET PO ×3 (09:19→17:26)
[2024-05-23] MEDS: APIXABAN 5 MG TABLET PO ×2 (09:19→21:14)
[2024-05-23] MEDS: FOLIC ACID 0.4 MG TABLET PO (09:19)
[2024-05-23] MEDS: ACETAMINOPHEN 325 MG TABLET 650 MG PO ×2 (09:19→17:25)
[2024-05-23] MEDS: FERROUS SULFATE 325 MG TABLET DR PO (09:21)
[2024-05-23] MEDS: SPIRONOLACTONE 12.5 MG TABLET PO (09:21)
[2024-05-23] MEDS: ASPIRIN 81 MG ENTERIC TABLET PO (09:21)
[2024-05-23] MEDS: LIDOCAINE 5% PATCH 1 PATCH TRANSDERM (09:21)
[2024-05-23] MEDS: dexAMETHasone 2 MG TABLET 6 MG PO (09:21)
[2024-05-23] MEDS: PANTOPRAZOLE 40 MG TABLET PO ×2 (09:21→17:26)
[2024-05-23] MEDS: MAGNESIUM OXIDE 400 MG TABLET PO ×2 (09:21→17:26)
[2024-05-23] MEDS: LORATADINE 10 MG TABLET PO (09:21)
[2024-05-23] MEDS: ROFLUMILAST 500 MCG TABLET PO (09:21)
[2024-05-23] MEDS: CHOLECALCIFEROL 1,000 UNITS TABLET 1000 UNITS PO (09:21)
[2024-05-23] MEDS: EUCERIN CREAM 120 GM JAR 1 APPLIC TOPICAL (09:22)
[2024-05-23] MEDS: FLUTICASONE PROPIONATE 0.05% NA SPR 16 GM BTL (*BKC) 2 SPRAY NASAL ×2 (09:22→17:26)
[2024-05-23] MEDS: TRIAMCINOLONE ACET 0.1% CREAM 15 GM TUBE 1 APPLIC TOPICAL (09:22)
[2024-05-23] MEDS: BUMETANIDE INJ 1 MG/4 ML VIAL IV PUSH (09:22)
[2024-05-23] MEDS: IPRATROPIUM 0.5 MG/ALBUTEROL SULFATE 2.5 MG AMPUL.NEB 3 ML NEBULIZE ×2 (09:38→21:21)
[2024-05-23 12:00] LABS: Glucose Point of Care 122 mg/dl (65-105)
[2024-05-23] MEDS: DOXYCYCLINE HYCLATE 100 MG TABLET PO (12:20)
--- NOTE | 2024-05-23 15:26 | P.PNIM_ITS ---
Progress Note: A&P Assessment and Plan (1) Acute on chronic respiratory failure with hypoxia and hypercapnia: Code(s): J96.21 - Acute and chronic respiratory failure with hypoxia; J96.22 - Acute and chronic respiratory failure with hypercapnia Status: Acute Assessment and Plan: * respiratory panel positive for COVID-19 * elevated proBNP 15,900-- continue diuresis with Bumex until creatinine is back to baseline * continue to wean O2 for sat greater than 90% * currently on 3 L nasal cannula, baseline is 2L NC at rest * continue DuoNeb breathing treatments * continue doxycycline * was given a loading dose of Solu-Medrol 125 mg IV push in the ED * continue Decadron and remdesivir for the COVID-19, day 3 * respiratory panel was negative for influenza a and B, RSV * Agent [place] exposure in [place], may be of some significance to his overall health problems (2) COVID-19: Code(s): U07.1 - COVID-19 Status: Acute Assessment and Plan: * respiratory panel positive for COVID 19 * continue Decadron and remdesivir as stated above * see above plan of care (3) Acute exacerbation of CHF (congestive heart failure): Qualifiers: Heart failure type: diastolic Qualified Code(s): I50.33 - Acute on chronic diastolic (congestive) heart failure Code(s): I50.9 - Heart failure, unspecified Status: Acute Assessment and Plan: * echocardiogram reviewed from 11/04/2023 shown normal LV systolic function with an estimated EF of 60-65%, grade 1 diastolic dysfunction * initial proBNP 84221 * continue metoprolol, spironolactone. Continue IV Bumex for now until creatinine is back to baseline (4) Chronic obstructive pulmonary disease: Qualifiers: COPD type: unspecified COPD Qualified Code(s): J44.9 - Chronic obstructive pulmonary disease, unspecified Code(s): J44.9 - Chronic obstructive pulmonary disease, unspecified Status: Chronic Assessment and Plan: * continue DuoNeb breathing treatments * currently on Decadron 6 mg daily * continue Flonase and Claritin * continue roflumilast (5) Acute kidney injury superimposed on chronic kidney disease: Code(s): N17.9 - Acute kidney failure, unspecified; N18.9 - Chronic kidney disease, unspecified Status: Acute Assessment and Plan: * creatinine currently 1.90, EGFR 35 * baseline creatinine appears to be 1.2-1.3, EGFR 54-59 * continue to diurese with IV Bumex * continue to trend * renally dose medications as needed * avoid testing with IV contrast and nephrotoxic medications (6) Diabetes mellitus: Code(s): E11.9 - Type 2 diabetes mellitus without complications Status: Acute Assessment and Plan: * Blood sugars ranging 116-122 * Hgb A1C 6.0 * Accu checks AC/HS * moderate dose SSI ordered * hypoglycemic protocol in place * Diabetic diet ordered * not on any home medications currently, this is a new diagnosis- he will likely need metformin upon discharge as well as a glucometer with accessories * museum educator consult * dietitian consult (7) Thrombocytopenia: Code(s): D69.6 - Thrombocytopenia, unspecified Status: Acute Assessment and Plan: * platelet count 130 today * his platelet count was in normal range back in January of this year * Vitamin B12 459, Folate 19.7 * Likely due to liver cirrhosis (8) Chronic anemia: Code(s): D64.9 - Anemia, unspecified Status: Chronic Assessment and Plan: * hemoglobin 10.8--SORAYA * Continue ferrous sulfate * could be due to chronic kidney disease however is on Eliquis for his AFib * Vitamin B 12 459, Folate 19.7, Iron 29, Ferritin 141 * TSH 0.331, free T4 1.49, total T3 0.71--likely subclinical, defer to primary care doctor at discharge (9) Benign prostatic hyperplasia with urinary retention: Code(s): N40.1 - Benign prostatic hyperplasia with lower urinary tract symptoms; R33.8 - Other retention of urine Status: Chronic Assessment and Plan: * continue tamsulosin * Currently has umaña catheter in place due to urinary retention * Follows with Dr. Brown * Will consult Urology for further guidance. (10) Paroxysmal atrial fibrillation: Code(s): I48.0 - Paroxysmal atrial fibrillation Status: Chronic Assessment and Plan: * continue Eliquis and metoprolol (11) Liver cirrhosis secondary to nonalcoholic steatohepatitis (RAYGOZA): Code(s): K75.81 - Nonalcoholic steatohepatitis (RAYGOZA); K74.60 - Unspecified cirrhosis of liver Status: Chronic Assessment and Plan: * continue spironolactone * trend liver enzymes (12) Obstructive sleep apnea treated with BiPAP: Code(s): G47.33 - Obstructive sleep apnea (adult) (pediatric) Status: Chronic Assessment and Plan: * CPAP ordered for night use Time Spent With Patient Time with patient: 25 - 35 minutes Subjective Date/time seen: 05/23/24 15:26 Interval history: Interval history: This is a 73-year-old male who presented to the hospital on 05/20/2024 with complaints of shortness a breath. Workup in the hospital included a chest x-ray which showed probable mild bibasilar pulmonary edema. Initial labs shown a normal white blood cell count of 7.6, hemoglobin 10.8, platelet count 125, creatinine 1.9, EGFR 35, troponin 0.039> 0.036> 0.036, proBNP 13574, C reactive protein 1.7, TSH 0.331, free T4 1.49, total T3 pending. respiratory panel was negative for influenza a and B, RSV. He was positive for COVID. EKG showed AFib with a rate of 91, QTC 401. Patient was given nebulizer treatment, loading dose of Solu-Medrol 125 mg IV push x1, 1 mg of Bumex, and started on remdesivir while in the ED. Subjective: Patient denies any new complaints today. He is currently on 3 L nasal cannula which is 1 L above his baseline. This is day 3 with remdesivir and Decadron. Patient states that he was in the and was exposed to Agent [place] a few times when in [place]. He thinks that the Agent [place] has caused a lot of his healthcare problems. We are also day 3 with IV Bumex. Labs reviewed. Review of Systems Review of Systems: All systems reviewed & are unremarkable except as noted in HPI and below Constitutional: Constitutional: Reports as per HPI and Reports no additional constitutional complaints Eyes: Eyes: Reports as per HPI and Reports no additional eye complaints ENT: Reports system reviewed and no additional complaints, except as documented and Reports as per HPI Cardiovascular: Cardiovascular: Reports as per HPI and Reports no additional cardiovascular complaints Respiratory: Respiratory: Reports as per HPI and Reports no additional respiratory complaints Gastrointestinal: Gastrointestinal: Reports as per HPI and Reports no additional gastrointestinal complaints Genitourinary: Genitourinary: Reports no additional male genitourinary complaints and Reports as per HPI Musculoskeletal: Musculoskeletal: Reports no additional musculoskeletal complaints and Reports as per HPI Integumentary/Breasts: Skin/Breast: Reports system reviewed and no additional complaints, except as docu and Reports as per HPI Neurologic: Reports system reviewed and no additional complaints, except as documented and Reports as per HPI Psychiatric: Psychiatric: Reports no additional psychiatric complaints and Reports as per HPI Exam Narrative: General: In no acute distress, well nourished Cardiac: Normal S1 and S2. No murmur, gallops or friction rubs, peripheral pulses intact. Respiratory: Crackles noted in left lung base, productive cough, no other adventitious lung sounds, currently on 3L NC Gastrointestinal: soft, non-distended, non-tender, normoactive bowel sounds. : Awaiting 1st void post catheter removal for voiding trial Neuro: Alert and oriented x4 Objective Data Vital Signs Vital Signs: Vital Signs - 24 hr 05/22/24 15:30 05/22/24 20:00 05/22/24 21:08 Temperature 97.8 F Pulse Rate 80 110 H Respiratory Rate 20 18 Blood Pressure 124/74 Pulse Oximetry 94 99 Oxygen Delivery Nasal Cannula Oxygen Flow Rate 2 05/23/24 04:39 05/23/24 08:00 05/23/24 09:15 Temperature 97.7 F Pulse Rate 81 81 Respiratory Rate 18 20 Blood Pressure 126/73 Pulse Oximetry 93 98 Oxygen Delivery Nasal Cannula Oxygen Flow Rate 2 05/23/24 09:19 05/23/24 09:39 05/23/24 09:39 Temperature Pulse Rate 81 82 Respiratory Rate 20 Blood Pressure Pulse Oximetry 98 Oxygen Delivery Nasal Cannula Oxygen Flow Rate 2 05/23/24 10:10 05/23/24 10:50 Temperature Pulse Rate Respiratory Rate Blood Pressure Pulse Oximetry Oxygen Delivery Nasal Cannula Nasal Cannula Oxygen Flow Rate 3 3 Intake/Output Intake/Output: Intake & Output 05/20/24 05/21/24 05/22/24 05/23/24 23:59 23:59 23:59 23:59 Intake Total 350 850 990 630 Output Total 700 3150 2200 800 Balance -350 -2300 -1210 -170 Meds/Results Medications: Active Medications Generic Name Dose Route Start Last Admin Trade Name Freq PRN Reason Stop Dose Admin Acetaminophen 650 mg 05/20/24 21:07 05/23/24 09:19 Acetaminophen 325 Mg Tablet PO 650 mg Q4H PRN Administration PAIN RATED 1-3 Albuterol/Ipratropium 3 ml 05/20/24 16:34 05/23/24 09:38 Ipratropium 0.5 Mg/Albuterol Sulfate 2.5 Mg Ampul.Neb 3 Ml NEBULIZE 3 ml Q6HRT PRN Administration Shortness Of Breath Or Wheezing Apixaban 5 mg 05/20/24 21:20 05/23/24 09:19 Apixaban 5 Mg Tablet PO 5 mg Q12HR ALEKSEY Administration Aspirin 81 mg 05/21/24 09:00 05/23/24 09:21 Aspirin 81 Mg Enteric Tablet PO 81 mg DAILY ALEKSEY Administration Baclofen 10 mg 05/20/24 21:10 05/22/24 20:01 Baclofen 10 Mg Tablet BY MOUTH 10 mg HS ALEKSEY Administration Bumetanide 1 mg 05/21/24 09:00 05/23/24 09:22 Bumetanide Inj 1 Mg/4 Ml Vial IV PUSH 1 mg QAM ALEKSEY Administration Dexamethasone 6 mg 05/21/24 08:00 05/23/24 09:21 Dexamethasone 2 Mg Tablet PO 05/30/24 08:01 6 mg DAILY@0800 ALEKSEY Administration Dextrose 12.5 gm 05/20/24 16:33 Dextrose 50% 25 Gm/50 Ml Syringe IV PUSH PRN PRN Hypoglycemia Protocol Doxycycline Hyclate 100 mg 05/21/24 12:00 05/23/24 12:20 Doxycycline Hyclate 100 Mg Tablet PO 100 mg DAILY@1200 ALEKSEY Administration Ferrous Sulfate 325 mg 05/21/24 09:00 05/23/24 09:21 Ferrous Sulfate [address] PO 325 mg DAILY ALEKSEY Administration Fluticasone Propionate 2 spray 05/20/24 21:10 05/23/24 09:22 Fluticasone Propionate 0.05% Na Spr 16 Gm Btl (*Bkc) NASAL 2 spray BID ALEKSEY Administration Fluticasone/Umeclidinium/Vilanterol 1 puff 05/21/24 09:00 05/22/24 09:37 Fluticasone/Umeclidin/Vilanter 100-62.5-25 Mcg Ellipta INHALATION 1 puff DAILY ALEKSEY Administration Folic Acid 0.4 mg 05/21/24 09:00 05/23/24 09:19 Folic Acid 0.4 Mg Tablet PO 0.4 mg DAILY ALEKSEY Administration Gabapentin 300 mg 05/20/24 21:25 05/23/24 09:19 Gabapentin 300 Mg Capsule PO 300 mg BID ALEKSEY Administration Glucagon 1 mg 05/20/24 16:33 Glucagon For Inj 1 Mg Vial IM PRN PRN Hypoglycemia Protocol Glucose 15 gm 05/20/24 16:33 Glucose Oral Gel 15 Gm Of Glucse In 37.5 Gm Tube PO PRN PRN Hypoglycemia Protocol Hydrocortisone 1 applic 05/20/24 21:07 Hydrocortisone 1% 30 Gm Cream TOPICAL DAILY PRN itching Dextrose 1,000 mls @ 100 mls/hr 05/20/24 16:33 Dextrose 5% 1,000 Ml IVPB PRN PRN Hypoglycemia Protocol Remdesivir 100 mg in 250 mls @ 250 mls/hr 05/21/24 22:00 05/22/24 21:08 IVPB 05/24/24 22:59 250 mls/hr Q24H ALEKSEY Administration Insulin Aspart 3 - 6 units 05/21/24 12:00 05/23/24 12:01 Insulin Aspart (*Bkc) 100 Units/Ml SUB-Q Not Given TIDWM ALEKSEY Protocol Insulin Aspart 1 - 3 units 05/21/24 21:00 05/22/24 20:04 Insulin Aspart (*Bkc) 100 Units/Ml SUB-Q Not Given HS ALEKSEY Protocol Lactobacillus Acidophilus 1 tablet 05/20/24 21:30 05/23/24 12:20 Acidophilus/Bulgaricus Chewable Tablet PO 1 tablet TID ALEKSEY Administration Lidocaine 1 patch 05/21/24 12:05 05/23/24 09:21 Lidocaine 5% Patch TRANSDERM 1 patch DAILY ALEKSEY Administration Loratadine 10 mg 05/21/24 09:00 05/23/24 09:21 Loratadine 10 Mg Tablet PO 10 mg DAILY ALEKSEY Administration Magnesium Oxide 400 mg 05/20/24 21:30 05/23/24 09:21 Magnesium Oxide 400 Mg Tablet PO 400 mg BID ALEKSEY Administration Metoprolol Succinate 50 mg 05/21/24 09:00 05/23/24 09:19 Metoprolol Succinate Ext Rel 50 Mg Tabcr PO 50 mg DAILY ALEKSEY Administration Miscellaneous Information 0 each 05/21/24 00:01 Diclofenac Gel 3% Is Non-Formulary. We Stock 1% Or Use Pt Own Supply? XX 06/20/24 00:00 CLARIFY ALEKSEY Multi-Ingred Cream/Lotion/Oil/Oint 1 applic 05/21/24 09:00 05/23/24 09:22 Eucerin Cream 120 Gm Jar TOPICAL 1 applic DAILY ALEKSEY Administration Non-Formulary Medication 1 applic 05/20/24 21:07 Diclofenac Sodium TOPICAL ONCE PRN pain Pantoprazole Sodium 40 mg 05/20/24 21:35 05/23/24 09:21 Pantoprazole 40 Mg Tablet PO 40 mg BID ALEKSEY Administration Pyridoxine HCl 100 mg 05/21/24 09:00 05/23/24 09:19 Pyridoxine Hcl 50 Mg Tablet PO 100 mg DAILY ALEKSEY Administration Roflumilast 500 mcg 05/21/24 09:00 05/23/24 09:21 Roflumilast 500 Mcg Tablet PO 500 mcg DAILY ALEKSEY Administration Spironolactone 12.5 mg 05/21/24 09:00 05/23/24 09:21 Spironolactone 12.5 Mg Tablet PO 12.5 mg DAILY ALEKSEY Administration Tamsulosin HCl 0.4 mg 05/20/24 21:35 05/22/24 20:01 Tamsulosin Hcl 0.4 Mg Capsule PO 0.4 mg HS ALEKSEY Administration Triamcinolone Acetonide 1 applic 05/21/24 09:00 05/23/24 09:22 Triamcinolone Acet 0.1% Cream 15 Gm Tube TOPICAL 1 applic DAILY ALEKSEY Administration Vitamin D 1,000 units 05/21/24 09:00 05/23/24 09:21 Cholecalciferol 1,000 Units Tablet PO 1,000 units DAILY ALEKSEY Administration Radiology Results: ITS Impressions Chest X-Ray 05/20/24 12:22 Impression: Probable mild bibasilar pulmonary edema. Labs Labs: Laboratory Results - last 24 hr 05/22/24 05/22/24 05/23/24 16:32 20:02 05:11 WBC 8.9 RBC 3.65 L Hgb 10.9 L Hct 34.7 L MCV 95.1 MCH 29.9 MCHC 31.4 L RDW 17.0 H Plt Count 130 L MPV 13.5 H Immature Gran % (Auto) 0.7 H Neut % (Auto) 85.7 H Lymph % (Auto) 4.9 L [place] % (Auto) 8.6 H Eos % (Auto) 0.0 Baso % (Auto) 0.1 L Lymph # (Auto) 0.43 L [place] # (Auto) 0.8 H Eos # (Auto) 0.0 Baso # (Auto) 0.0 Abs Immat Gran (auto) 0.06 H Absolute Neuts (auto) 7.6 H Absolute Nucleated RBC 0.000 Nucleated RBC % 0.0 % Immature Plt Fraction 16.2 H Sodium 134 L Potassium 4.2 Chloride 103 Carbon Dioxide 29 Anion Gap 2 L BUN 57 H Creatinine 1.90 H Estim Creat Clear Calc 38 Estimated GFR 35 L Glucose 116 H POC Capillary Glucose 156 H 173 H Calcium 9.1 Total Bilirubin 0.7 AST 33 ALT 28 Alkaline Phosphatase 102 Total Protein 6.0 L Albumin 3.5 05/23/24 05/23/24 07:56 11:57 WBC RBC Hgb Hct MCV MCH MCHC RDW Plt Count MPV Immature Gran % (Auto) Neut % (Auto) Lymph % (Auto) [place] % (Auto) Eos % (Auto) Baso % (Auto) Lymph # (Auto) [place] # (Auto) Eos # (Auto) Baso # (Auto) Abs Immat Gran (auto) Absolute Neuts (auto) Absolute Nucleated RBC Nucleated RBC % % Immature Plt Fraction Sodium Potassium Chloride Carbon Dioxide Anion Gap BUN Creatinine Estim Creat Clear Calc Estimated GFR Glucose POC Capillary Glucose 99 122 H Calcium Total Bilirubin AST ALT Alkaline Phosphatase Total Protein Albumin Quality VTE Prophylaxis VTE prophylaxis: pharmacologic ordered
[2024-05-23 17:10] LABS: Glucose Point of Care 162 mg/dl (65-105)
[2024-05-23 21:06] LABS: Glucose Point of Care 138 mg/dl (65-105)
[2024-05-23] MEDS: BACLOFEN 10 MG TABLET BY MOUTH (21:14)
[2024-05-23] MEDS: TAMSULOSIN HCL 0.4 MG CAPSULE PO (21:14)
[2024-05-23] MEDS: REMDESIVIR 100 MG/NS 250 ML 100 MG/250 ML BAG 250 MG IVPB (21:14)
[2024-05-24] VITALS (12 sets, daily range): BP systolic 121–132; BP diastolic 73–82; PULSE 62–88; RESP 14–24; TEMP 36.3–37.3; O2SAT 95–100
[2024-05-24 06:07] LABS: Basophils Percent Auto 0.1 % (0.2-1.2); Hematocrit 36.7 % (42.0-52.0); Hemoglobin 11.4 g/dL (14.0-18.0); Immature Granulocyte Absolute 0.08 K/mm3 (0.00-0.031); Lymphocytes Absolute Auto 0.53 K/mm3 (0.9-3.2); Lymphocytes Percent Auto 6.3 % (18.3-44.2); Mean Corpuscular HGB Conc 31.1 g/dl (32-36); Mean Corpuscular Hemoglobin 29.2 pg (26-34); Mean Corpuscular Volume 94.1 fl (80-100); Mean Platelet Volume 13.8 fl (7.4-10.4); Monocytes Absolute Auto 0.6 K/mm3 (0.1-0.6); Monocytes Percent Auto 7.7 % (2.6-8.5); Neutrophils Absolute Auto 7.1 K/mm3 (1.3-6.7); Neutrophils Percent Auto 84.9 % (45.5-73.1); Platelet Count Result 136 k/mm3 (150-375); Red Cell Distribution Width 16.9 % (11.5-14.5); White Blood Count 8.4 K/mm3 (4.5-10.0)
[2024-05-24 06:14] LABS: Alanine Aminotransferase 43 U/L (6-50); Albumin Level 3.7 g/dL (3.5-5.1); Alkaline Phosphatase 104 U/L (38-126); Anion Gap 4 mmol/L (4-12); Aspartate Amino Transferase 45 U/L (17-59); Bilirubin,Total 0.8 mg/dL (0.2-1.3); Blood Urea Nitrogen 54 mg/dL (9-20); Calcium 9.1 mg/dL (8.4-10.2); Carbon Dioxide 30 mmol/L (22-30); Chloride 100 mmol/L (98-107); Estimated CRCL calculation 38 ml/min; Estimated Glomerular Filt Rate 35; Glucose 125 mg/dL (65-110); Potassium 4.4 mmol/L (3.4-5.0); Sodium 134 mmol/L (137-145)
[2024-05-24 06:24] LABS: INR 1.4; Prothrombin Time 17.5 Seconds (11.1-14.7)
[2024-05-24] MEDS: FLUTICASONE/UMECLIDIN/VILANTER 100-62.5-25 MCG ELLIPTA 1 PUFF INHALATION (06:32)
[2024-05-24] MEDS: IPRATROPIUM 0.5 MG/ALBUTEROL SULFATE 2.5 MG AMPUL.NEB 3 ML NEBULIZE ×2 (06:33→21:19)
[2024-05-24 08:24] LABS: Glucose Point of Care 119 mg/dl (65-105)
[2024-05-24] MEDS: GABAPENTIN 300 MG CAPSULE PO ×2 (09:10→17:24)
[2024-05-24] MEDS: CHOLECALCIFEROL 1,000 UNITS TABLET 1000 UNITS PO (09:11)
[2024-05-24] MEDS: SPIRONOLACTONE 12.5 MG TABLET PO (09:11)
[2024-05-24] MEDS: PANTOPRAZOLE 40 MG TABLET PO ×2 (09:11→17:24)
[2024-05-24] MEDS: LORATADINE 10 MG TABLET PO (09:11)
[2024-05-24] MEDS: ACIDOPHILUS/BULGARICUS CHEWABLE TABLET 1 TABLET PO ×3 (09:11→17:24)
[2024-05-24] MEDS: ACETAMINOPHEN 325 MG TABLET 650 MG PO ×3 (09:12→21:30)
[2024-05-24] MEDS: ROFLUMILAST 500 MCG TABLET PO (09:12)
[2024-05-24] MEDS: FOLIC ACID 0.4 MG TABLET PO (09:12)
[2024-05-24] MEDS: dexAMETHasone 2 MG TABLET 6 MG PO (09:12)
[2024-05-24] MEDS: PYRIDOXINE HCL 50 MG TABLET 100 MG PO (09:12)
[2024-05-24] MEDS: METOPROLOL SUCCINATE EXT REL 50 MG TABCR PO (09:13)
[2024-05-24] MEDS: BUMETANIDE INJ 1 MG/4 ML VIAL IV PUSH (09:13)
[2024-05-24] MEDS: ASPIRIN 81 MG ENTERIC TABLET PO (09:13)
[2024-05-24] MEDS: EUCERIN CREAM 120 GM JAR 1 APPLIC TOPICAL (09:13)
[2024-05-24] MEDS: LIDOCAINE 5% PATCH 1 PATCH TRANSDERM (09:13)
[2024-05-24] MEDS: APIXABAN 5 MG TABLET PO ×2 (09:13→20:50)
[2024-05-24] MEDS: FLUTICASONE PROPIONATE 0.05% NA SPR 16 GM BTL (*BKC) 2 SPRAY NASAL ×2 (09:13→17:24)
[2024-05-24] MEDS: MAGNESIUM OXIDE 400 MG TABLET PO ×2 (09:13→17:24)
[2024-05-24] MEDS: FERROUS SULFATE 325 MG TABLET DR PO (09:13)
[2024-05-24] MEDS: TRIAMCINOLONE ACET 0.1% CREAM 15 GM TUBE 1 APPLIC TOPICAL (09:14)
[2024-05-24 11:51] LABS: Glucose Point of Care 163 mg/dl (65-105)
[2024-05-24] MEDS: DOXYCYCLINE HYCLATE 100 MG TABLET PO (12:09)
--- NOTE | 2024-05-24 14:50 | P.PNIM_ITS ---
Progress Note: A&P Assessment and Plan (1) Acute on chronic respiratory failure with hypoxia and hypercapnia: Code(s): J96.21 - Acute and chronic respiratory failure with hypoxia; J96.22 - Acute and chronic respiratory failure with hypercapnia Status: Acute Assessment and Plan: * respiratory panel positive for COVID-19 * elevated proBNP 15,900-- continue diuresis with Bumex until creatinine is back to baseline * continue to wean O2 for sat greater than 90% * currently on 3 L nasal cannula, baseline is 2L NC at rest * continue DuoNeb breathing treatments * continue doxycycline * was given a loading dose of Solu-Medrol 125 mg IV push in the ED * continue Decadron and remdesivir for the COVID-19, day 3 * respiratory panel was negative for influenza a and B, RSV * Agent Hem[employer] exposure in [place], may be of some significance to his overall health problems 05/24/2024 * weaned back to 2L patient baseline * added Mucinex * added incentive spirometer * Follow-up out/patient with pulmonary * (2) COVID-19: Code(s): U07.1 - COVID-19 Status: Acute Assessment and Plan: * respiratory panel positive for COVID 19 * continue Decadron and remdesivir as stated above * see above plan of care (3) Acute exacerbation of CHF (congestive heart failure): Qualifiers: Heart failure type: diastolic Qualified Code(s): I50.33 - Acute on chronic diastolic (congestive) heart failure Code(s): I50.9 - Heart failure, unspecified Status: Acute Assessment and Plan: * echocardiogram reviewed from 11/04/2023 shown normal LV systolic function with an estimated EF of 60-65%, grade 1 diastolic dysfunction * initial proBNP 83136 * continue metoprolol, spironolactone. Continue IV Bumex for now until creatinine is back to baseline (4) Chronic obstructive pulmonary disease: Qualifiers: COPD type: unspecified COPD Qualified Code(s): J44.9 - Chronic obstructive pulmonary disease, unspecified Code(s): J44.9 - Chronic obstructive pulmonary disease, unspecified Status: Chronic Assessment and Plan: * continue DuoNeb breathing treatments * currently on Decadron 6 mg daily * continue Flonase and Claritin * continue roflumilast (5) Acute kidney injury superimposed on chronic kidney disease: Code(s): N17.9 - Acute kidney failure, unspecified; N18.9 - Chronic kidney disease, unspecified Status: Acute Assessment and Plan: * creatinine currently 1.90, EGFR 35 * baseline creatinine appears to be 1.2-1.3, EGFR 54-59 * continue to diurese with IV Bumex * continue to trend * renally dose medications as needed * avoid testing with IV contrast and nephrotoxic medications 05/24/24 * Improving (6) Diabetes mellitus: Code(s): E11.9 - Type 2 diabetes mellitus without complications Status: Acute Assessment and Plan: * Blood sugars ranging 116-122 * Hgb A1C 6.0 * Accu checks AC/HS * moderate dose SSI ordered * hypoglycemic protocol in place * Diabetic diet ordered * not on any home medications currently, this is a new diagnosis- he will likely need metformin upon discharge as well as a glucometer with accessories * community nutrition educator consult * dietitian consult (7) Thrombocytopenia: Code(s): D69.6 - Thrombocytopenia, unspecified Status: Acute Assessment and Plan: * platelet count 130 today * his platelet count was in normal range back in January of this year * Vitamin B12 459, Folate 19.7 * Likely due to liver cirrhosis 05/24/2024 * 136 Improved (8) Chronic anemia: Code(s): D64.9 - Anemia, unspecified Status: Chronic Assessment and Plan: * hemoglobin 10.8--SORAYA * Continue ferrous sulfate * could be due to chronic kidney disease however is on Eliquis for his AFib * Vitamin B 12 459, Folate 19.7, Iron 29, Ferritin 141 * TSH 0.331, free T4 1.49, total T3 0.71--likely subclinical, defer to primary care doctor at discharge STABLE (9) Benign prostatic hyperplasia with urinary retention: Code(s): N40.1 - Benign prostatic hyperplasia with lower urinary tract symptoms; R33.8 - Other retention of urine Status: Chronic Assessment and Plan: * continue tamsulosin * Currently has umaña catheter in place due to urinary retention * Follows with Dr. Brown * Will consult Urology for further guidance. 05/24/24 * voiding trial (10) Paroxysmal atrial fibrillation: Code(s): I48.0 - Paroxysmal atrial fibrillation Status: Chronic Assessment and Plan: * continue Eliquis and metoprolol (11) Liver cirrhosis secondary to nonalcoholic steatohepatitis (RAYGOZA): Code(s): K75.81 - Nonalcoholic steatohepatitis (RAYGOZA); K74.60 - Unspecified cirrhosis of liver Status: Chronic Assessment and Plan: * continue spironolactone * trend liver enzymes (12) Obstructive sleep apnea treated with BiPAP: Code(s): G47.33 - Obstructive sleep apnea (adult) (pediatric) Status: Chronic Assessment and Plan: * CPAP ordered for night use Plan Code status: Full code per patient DVT prophylaxis: Eliquis Stress ulcer prophylaxis: Protonix 40 daily PT/OT notes: Rehab liberty Disposition: Patient admitted tot medical unit for treatment of acute respiratory failure with hypoxia secondary to COVID. patient still with continued weakness recommendation for rehab patient states he will only go to [facility] for rehab, care coordination consulted for assistance. Time Spent With Patient Time with patient: 15 - 25 minutes Subjective Date/time seen: 05/24/24 14:50 Interval history: Patient is a 73-year-old male with the unit for acute on chronic respiratory failure with hypoxia secondary to COVID. 05/24/2024: Assumed Care Patient still reporting generalized weakness and unsteady gate. Denied SOB, CP, fever, chills, N/v is currently wean back to his 2 L supplemental oxygen. Possible rehab Review of Systems Review of Systems: All systems reviewed & are unremarkable except as noted in HPI and below Exam Narrative: General: In no acute distress, well nourished still weak Cardiac: Normal S1 and S2. No murmur, gallops or friction rubs, peripheral pulses intact. Respiratory: Crackles noted in left lung base, productive cough, no other adventitious lung sounds, currently on 2L NC patient baseline Gastrointestinal: soft, non-distended, non-tender, normoactive bowel sounds. : Awaiting 1st void post catheter removal for voiding trial Neuro: Alert and oriented x4 Objective Data Vital Signs Vital Signs: Vital Signs - 24 hr 05/23/24 20:00 05/23/24 21:21 05/23/24 21:33 Temperature Pulse Rate 87 80 Respiratory Rate 20 20 Blood Pressure Pulse Oximetry 100 Oxygen Delivery Nasal Cannula Oxygen Flow Rate 2 05/23/24 22:00 05/24/24 01:44 05/24/24 06:00 Temperature 97.4 F L 97.3 F L Pulse Rate 81 88 81 Respiratory Rate 18 24 H 18 Blood Pressure 133/76 132/80 Pulse Oximetry 100 95 98 Oxygen Delivery BiPAP Oxygen Flow Rate 05/24/24 06:20 05/24/24 06:35 05/24/24 08:00 Temperature Pulse Rate 87 82 Respiratory Rate 20 20 Blood Pressure Pulse Oximetry 98 Oxygen Delivery Nasal Cannula Oxygen Flow Rate 2 05/24/24 09:13 05/24/24 14:00 Temperature 99.2 F Pulse Rate 82 79 Respiratory Rate 14 Blood Pressure 132/82 Pulse Oximetry 100 Oxygen Delivery Oxygen Flow Rate Intake/Output Intake/Output: Intake & Output 05/21/24 05/22/24 05/23/24 05/24/24 23:59 23:59 23:59 23:59 Intake Total 850 1240 2020 360 Output Total 3150 2200 2400 530 Balance -2300 -960 -380 -170 Meds/Results Medications: Active Medications Generic Name Dose Route Start Last Admin Trade Name Freq PRN Reason Stop Dose Admin Acetaminophen 650 mg 05/20/24 21:07 05/24/24 09:12 Acetaminophen 325 Mg Tablet PO 650 mg Q4H PRN Administration PAIN RATED 1-3 Albuterol/Ipratropium 3 ml 05/20/24 16:34 05/24/24 06:33 Ipratropium 0.5 Mg/Albuterol Sulfate 2.5 Mg Ampul.Neb 3 Ml NEBULIZE 3 ml Q6HRT PRN Administration Shortness Of Breath Or Wheezing Apixaban 5 mg 05/20/24 21:20 05/24/24 09:13 Apixaban 5 Mg Tablet PO 5 mg Q12HR ALEKSEY Administration Aspirin 81 mg 05/21/24 09:00 05/24/24 09:13 Aspirin 81 Mg Enteric Tablet PO 81 mg DAILY ALEKSEY Administration Baclofen 10 mg 05/20/24 21:10 05/23/24 21:14 Baclofen 10 Mg Tablet BY MOUTH 10 mg HS ALEKSEY Administration Bumetanide 1 mg 05/21/24 09:00 05/24/24 09:13 Bumetanide Inj 1 Mg/4 Ml Vial IV PUSH 1 mg QAM ALEKSEY Administration Dexamethasone 6 mg 05/21/24 08:00 05/24/24 09:12 Dexamethasone 2 Mg Tablet PO 05/30/24 08:01 6 mg DAILY@0800 ALEKSEY Administration Dextrose 12.5 gm 05/20/24 16:33 Dextrose 50% 25 Gm/50 Ml Syringe IV PUSH PRN PRN Hypoglycemia Protocol Doxycycline Hyclate 100 mg 05/21/24 12:00 05/24/24 12:09 Doxycycline Hyclate 100 Mg Tablet PO 100 mg DAILY@1200 ALEKSEY Administration Ferrous Sulfate 325 mg 05/21/24 09:00 05/24/24 09:13 Ferrous Sulfate [address] PO 325 mg DAILY ALEKESY Administration Fluticasone Propionate 2 spray 05/20/24 21:10 05/24/24 09:13 Fluticasone Propionate 0.05% Na Spr 16 Gm Btl (*Bkc) NASAL 2 spray BID ALEKSEY Administration Fluticasone/Umeclidinium/Vilanterol 1 puff 05/21/24 09:00 05/24/24 06:32 Fluticasone/Umeclidin/Vilanter 100-62.5-25 Mcg Ellipta INHALATION 1 puff DAILY ALEKSEY Administration Folic Acid 0.4 mg 05/21/24 09:00 05/24/24 09:12 Folic Acid 0.4 Mg Tablet PO 0.4 mg DAILY ALEKSEY Administration Gabapentin 300 mg 05/20/24 21:25 05/24/24 09:10 Gabapentin 300 Mg Capsule PO 300 mg BID ALEKSEY Administration Glucagon 1 mg 05/20/24 16:33 Glucagon For Inj 1 Mg Vial IM PRN PRN Hypoglycemia Protocol Glucose 15 gm 05/20/24 16:33 Glucose Oral Gel 15 Gm Of Glucse In 37.5 Gm Tube PO PRN PRN Hypoglycemia Protocol Hydrocortisone 1 applic 05/20/24 21:07 Hydrocortisone 1% 30 Gm Cream TOPICAL DAILY PRN itching Dextrose 1,000 mls @ 100 mls/hr 05/20/24 16:33 Dextrose 5% 1,000 Ml IVPB PRN PRN Hypoglycemia Protocol Remdesivir 100 mg in 250 mls @ 250 mls/hr 05/21/24 22:00 05/23/24 21:14 IVPB 05/24/24 22:59 250 mls/hr Q24H ALEKSEY Administration Insulin Aspart 3 - 6 units 05/21/24 12:00 05/24/24 12:02 Insulin Aspart (*Bkc) 100 Units/Ml SUB-Q Not Given TIDWM ALEKSEY Protocol Insulin Aspart 1 - 3 units 05/21/24 21:00 05/23/24 23:14 Insulin Aspart (*Bkc) 100 Units/Ml SUB-Q Not Given HS [facility] Protocol Lactobacillus Acidophilus 1 tablet 05/20/24 21:30 05/24/24 12:09 Acidophilus/Bulgaricus Chewable Tablet PO 1 tablet TID ALEKSEY Administration Lidocaine 1 patch 05/21/24 12:05 05/24/24 09:13 Lidocaine 5% Patch TRANSDERM 1 patch DAILY ALEKSEY Administration Loratadine 10 mg 05/21/24 09:00 05/24/24 09:11 Loratadine 10 Mg Tablet PO 10 mg DAILY ALEKSEY Administration Magnesium Oxide 400 mg 05/20/24 21:30 05/24/24 09:13 Magnesium Oxide 400 Mg Tablet PO 400 mg BID ALEKSEY Administration Metoprolol Succinate 50 mg 05/21/24 09:00 05/24/24 09:13 Metoprolol Succinate Ext Rel 50 Mg Tabcr PO 50 mg DAILY ALEKSEY Administration Miscellaneous Information 0 each 05/21/24 00:01 Diclofenac Gel 3% Is Non-Formulary. We Stock 1% Or Use Pt Own Supply? XX 06/20/24 00:00 CLARIFY ALEKSEY Multi-Ingred Cream/Lotion/Oil/Oint 1 applic 05/21/24 09:00 05/24/24 09:13 Eucerin Cream 120 Gm Jar TOPICAL 1 applic DAILY ALEKSEY Administration Non-Formulary Medication 1 applic 05/20/24 21:07 Diclofenac Sodium TOPICAL ONCE PRN pain Pantoprazole Sodium 40 mg 05/20/24 21:35 05/24/24 09:11 Pantoprazole 40 Mg Tablet PO 40 mg BID ALEKSEY Administration Pyridoxine HCl 100 mg 05/21/24 09:00 05/24/24 09:12 Pyridoxine Hcl 50 Mg Tablet PO 100 mg DAILY ALEKSEY Administration Roflumilast 500 mcg 05/21/24 09:00 05/24/24 09:12 Roflumilast 500 Mcg Tablet PO 500 mcg DAILY ALEKSEY Administration Spironolactone 12.5 mg 05/21/24 09:00 05/24/24 09:11 Spironolactone 12.5 Mg Tablet PO 12.5 mg DAILY ALEKSEY Administration Tamsulosin HCl 0.4 mg 05/20/24 21:35 05/23/24 21:14 Tamsulosin Hcl 0.4 Mg Capsule PO 0.4 mg HS ALEKSEY Administration Triamcinolone Acetonide 1 applic 05/21/24 09:00 05/24/24 09:14 Triamcinolone Acet 0.1% Cream 15 Gm Tube TOPICAL 1 applic DAILY ALEKSEY Administration Vitamin D 1,000 units 05/21/24 09:00 05/24/24 09:11 Cholecalciferol 1,000 Units Tablet PO 1,000 units DAILY ALEKSEY Administration Radiology Results: ITS Impressions Chest X-Ray 05/20/24 12:22 Impression: Probable mild bibasilar pulmonary edema. Labs Labs: Laboratory Results - last 24 hr 05/23/24 05/23/24 05/24/24 17:07 21:04 05:34 WBC 8.4 RBC 3.90 L Hgb 11.4 L Hct 36.7 L MCV 94.1 MCH 29.2 MCHC 31.1 L RDW 16.9 H Plt Count 136 L MPV 13.8 H Immature Gran % (Auto) 1.0 H Neut % (Auto) 84.9 H Lymph % (Auto) 6.3 L [place] % (Auto) 7.7 Eos % (Auto) 0.0 Baso % (Auto) 0.1 L Lymph # (Auto) 0.53 L [place] # (Auto) 0.6 Eos # (Auto) 0.0 Baso # (Auto) 0.0 Abs Immat Gran (auto) 0.08 H Absolute Neuts (auto) 7.1 H Absolute Nucleated RBC 0.000 Nucleated RBC % 0.0 % Immature Plt Fraction 20.0 H PT 17.5 H INR 1.4 Sodium 134 L Potassium 4.4 Chloride 100 Carbon Dioxide 30 Anion Gap 4 BUN 54 H Creatinine 1.90 H Estim Creat Clear Calc 38 Estimated GFR 35 L Glucose 125 H POC Capillary Glucose 162 H 138 H Calcium 9.1 Total Bilirubin 0.8 Direct Bilirubin 0.0 AST 45 ALT 43 Alkaline Phosphatase 104 Total Protein 6.0 L Albumin 3.7 05/24/24 05/24/24 08:17 11:48 WBC RBC Hgb Hct MCV MCH MCHC RDW Plt Count MPV Immature Gran % (Auto) Neut % (Auto) Lymph % (Auto) [place] % (Auto) Eos % (Auto) Baso % (Auto) Lymph # (Auto) [place] # (Auto) Eos # (Auto) Baso # (Auto) Abs Immat Gran (auto) Absolute Neuts (auto) Absolute Nucleated RBC Nucleated RBC % % Immature Plt Fraction PT INR Sodium Potassium Chloride Carbon Dioxide Anion Gap BUN Creatinine Estim Creat Clear Calc Estimated GFR Glucose POC Capillary Glucose 119 H 163 H Calcium Total Bilirubin Direct Bilirubin AST ALT Alkaline Phosphatase Total Protein Albumin Quality VTE Prophylaxis VTE prophylaxis: pharmacologic ordered -Patient's previous records reviewed on admission -ER notes reviewed in detail on admission -discussed all findings and current treatment plan with patient/Family/POA -Consultations reviewed for recommendations -Patient's disposition for safe discharge discussed with telehealth case manager Dictation performed by [employer] direct speech recognition software, therefore school child care attendant variants and typographical errors may occur. Hospitalist MIPS Advance Care Plan I have confirmed that the patient's Advanced Care Plan is present, code status is documented, or surrogate decision maker is listed in patient medical record.: Yes Medication Reconciliation The patient is not eligible for med reconciliation; the patient is in a emergent medical situation where delaying treatment would jeopardize the patients health.: No
[2024-05-24 17:15] LABS: Glucose Point of Care 143 mg/dl (65-105)
[2024-05-24 20:16] LABS: Glucose Point of Care 212 mg/dl (65-105)
[2024-05-24] MEDS: guaiFENesin 12 HR 600 MG TABCR 1200 MG PO (20:50)
[2024-05-24] MEDS: BACLOFEN 10 MG TABLET BY MOUTH (20:50)
[2024-05-24] MEDS: TAMSULOSIN HCL 0.4 MG CAPSULE PO (20:51)
[2024-05-24] MEDS: INSULIN ASPART (*BKC) 100 UNITS/ML SUB-Q (20:51)
[2024-05-24] MEDS: REMDESIVIR 100 MG/NS 250 ML 100 MG/250 ML BAG 250 MG IVPB (21:30)
--- OUTSIDE RECORDS SUMMARY | 2024-05-24 23:22 | XMS_ITS | Encounter Summary ---
Author Organization [facility] Healthcare Address [address] [place] [address] Care Team Providers Care Professor Of Philosophy Name Role Phone Napoleon Birmingham MD Primary Care Provider [phone] Reason for Visit * Reason Comments Atrial Fibrillation 6 month follow up. * Consultation (Routine) - Closed Specialty Diagnoses / Procedures Referred By Contac t Referred To Contact Cardiology Diagnoses Chronic atrial fibrillation (HCC) Epi Lake MD [address] [address] Phone: tel: fax: [facility] Cardiology [address] [place] [phone] Phone: tel: fax: Referral ID Status Reason Start Date Expiration Date V isits Requested Visits Authorized [id number] Closed Specialty Services Required 09/27/2023 10/26/2024 1 1 Encounter Details Date Type Department Care Team (Late st Contact Info) Description 09/27/2023 1:30 PM CDT Office Visit [facility] Cardiology [address] [place] [address] [address] [place] [phone] Epi Lake MD [address] [facility] [address] [address] Lipid screening (Primary Dx); Chronic atrial fibrillation (HCC) Social History Tobacco Use Types Packs/Day Years Used Date Smoking Tobacco: Former Cigarettes Q uit: 1982 Smokeless Tobacco: Never Alcohol Use Standard Drinks/Week Comments No 0 (1 standard drink = 0.6 oz pur e alcohol) Sex and Gender Information Value Date Recorded Sex Assigned at Not on file 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 Gender Identity Not on file Sexual Orientation Not on file documented as of this encounter Last Filed Vital Signs Vital Sign Reading Time Taken Comments Blood Pressure 100/68 09/27/2023 1:14 PM CDT Pulse 75 09/27/2023 1:14 PM CDT Temperature - - Respiratory Rate - - Oxygen Saturation 94% 09/27/2023 1:14 PM CDT Inhaled Oxygen Concentration - - Weight 115.2 kg (254 lb) 09/27/2023 1:14 PM CDT Height 180.3 cm (5' 11 ) 09/27/2023 1:14 PM CDT Body Mass Index 35.43 09/27/2023 1:14 PM CDT documented in this encounter Progress Notes * Epi Lake MD - 09/27/2023 1:30 PM CDT [facility] FOLLOW UP 09/27/2023 Mason Keys is a 72 y.o. male who presents for follow up of chronic atrial fibrillation. This lisa patient who was initially treated in the past with anti rhythmic therapy with sotalol and was maintaining sinus rhythm. Back in 2016 he lapsed into asymptomatic atrial fibrillation which was therefore recommended as his chronic rhythm and he has been seen since then in follow-up. 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 Physicians at the [facility] had placed him on amiodarone for simple rate control. After I saw the patient in follow-up in February of 2018 I transitioned him back to standard beta-fe treatment because the personalized living manager at the [facility] did not want him on the amiodarone which is not a drug that I started in the 1st place. He c ontinues to take antibiotics for treatment of chronic vertebral infection. He does have chronic symptoms of exertional dyspnea which I have attributed to both his atrial fibrillation, COPD and obesity. The patient returns to the office today for a scheduled six-month appointment. He seems to be doingwell with respect to his atrial fibrillation. He does have some exertional shortness of breath and he and his indicated that recently they had him brought to the emergency room here at [facility] to evaluate significant shortness of breath that occurred after working out at the [facility]. It is admirable that he has been trying to get some exercise like this but he became significantly short of breath and they were concerned about dyspnea that was not recovering with rest. They say he had a negative ER evaluation and was released. REVIEW OF SYSTEMS General ROS: negative for - chills, fatigue, fever, malaise, night sweats, weight gain or weight loss Psychological ROS: negative for - anxiety, depression, memory difficulties or sleep disturbances Ophthalmic ROS: negative for - blurry vision, decreased vision, loss of vision or scotomata ENT ROS: negative for - epistaxis, headaches, hearing change, nasal congestion, nasal discharge, sore throat, vertigo or visual changes Hematological and Lymphatic ROS: negative for - bleeding problems, blood clots, bruising, fatigue or weight loss Endocrine ROS: negative for - hot flashes, palpitations, polydipsia/polyuria or unexpected weight changes Respiratory ROS: negative for - cough, hemoptysis, orthopnea, shortness of breath, tachypnea or wheezing Cardiovascular ROS: negative for - chest pain, dyspnea on exertion, edema, irregular heartbeat, loss of consciousness, murmur, orthopnea, palpitations, paroxysmal nocturnal dyspnea, rapid heart rate or shortness of breath Gastrointestinal ROS: negative for - abdominal pain, appetite loss, blood in stools, constipation, diarrhea, gas/bloating, heartburn, hematemesis, melena or nausea/vomiting Genito-Urinary ROS: negative for - dysuria, erectile dysfunction or hematuria Musculoskeletal ROS: negative for - joint pain, muscle pain or muscular weakness Dermatological ROS: negative for dry skin, eczema, pruritus and rash HOME MEDICATIONS Current Outpatient Medications: acetaminophen (TYLENOL) 325 mg tablet, Take 2 tablets (650 mg total) by mouth every 4 (four) hours as needed for pain, Disp: , Rfl: albuterol (PROVENTIL,VENTOLIN) 2.5 mg/0.5 mL solution for nebulization, Take 1 mL (5 mg total) by nebulization every 6 (six) hours as needed (resp failure)., Disp: 25 each, Rfl: 0 apixaban (ELIQUIS) 5 mg tablet, Take 1 tablet (5 mg total) by mouth 2 (two) times a day., Disp: 60 tablet, Rfl: 0 aspirin (ASPIRIN LOW DOSE) 81 mg tablet, Take 1 tablet (81 mg total) by mouth daily., Disp: 30 tablet, Rfl: 0 baclofen (LIORESAL) 10 mg tablet, Take 1 tablet (10 mg total) by mouth 3 (three) times a day with meals. (Patient taking differently: Take 1 tablet (10 mg total) by mouth daily), Disp: 90 tablet, Rfl: 0 benzonatate (TESSALON) 200 mg capsule, Take 1 capsule (200 mg total) by mouth 3 (three) times a dayas needed for cough, Disp: , Rfl: Breztri Aerosphere 160-9-4.8 mcg/actuation HFA aerosol inhaler, INHALE 2 PUFFS BY MOUTH EVERY MORNING AND EVERY EVENING, Disp: , Rfl: bumetanide (BUMEX) 0.5 mg tablet, Take 1 tablet (0.5 mg total) by mouth daily. (Patient taking differently: Take 1 tablet (0.5 mg total) by mouth 2 (two) times a day), Disp: 30 tablet, Rfl: 0 camphor-menthol (SARNA) lotion, Apply topically as needed for itching., Disp: 222 mL, Rfl: 0 cetirizine (ZyrTEC) 10 mg tablet, Take 1 tablet (10 mg total) by mouth daily, Disp: , Rfl: cholecalciferol 25 mcg (1,000 unit) tablet, Take 1 tablet (1,000 Units total) by mouth daily, Disp:, Rfl: Daliresp 500 mcg tablet, , Disp: , Rfl: diphenhydrAMINE (BENADRYL) 25 mg capsule, Take 1 tablet/capsule (25 mg total) by mouth 2 (two) times a day, Disp: , Rfl: doxycycline (VIBRAMYCIN) 100 mg capsule, Take 1 tablet/capsule (100 mg total) by mouth daily, Disp:, Rfl: ferrous fumarate 325 mg (106 mg iron) tablet, Take 1 tablet (325 mg total) by mouth daily with breakfast, Disp: , Rfl: fluticasone propionate (FLONASE) 50 mcg/actuation nasal spray, Administer 2 sprays into each nostril daily, Disp: , Rfl: FOLIC ACID ORAL, Take 1 tablet by mouth daily, Disp: , Rfl: gabapentin (NEURONTIN) 100 mg capsule, Take 3 capsules (300 mg total) by mouth 2 (two) times a day,Disp: , Rfl: magnesium oxide 400 mg magnesium capsule, Take by mouth, Disp: , Rfl: metoprolol XL (TOPROL-XL) 50 mg extended release tablet, Take 1 tablet (50 mg total) by mouth daily, Disp: , Rfl: nystatin powder, Apply topically 4 (four) times a day, Disp: , Rfl: omeprazole (PriLOSEC) 40 mg capsule, Take 1 capsule (40 mg total) by mouth daily, Disp: , Rfl: oxygen, 1 L, Disp: , Rfl: potassium chloride (KLOR-CON) 20 mEq packet, Take 1 packet (20 mEq total) by mouth daily, Disp: , Rfl: spironolactone (ALDACTONE) 25 mg tablet, Take 0.5 tablets (12.5 mg total) by mouth daily, Disp: , Rfl: triamcinolone (KENALOG) 0.1 % cream, APPLY A THIN LAYER TOPICALLY FOUR TIMES DAILY TO THE AFFECTED AREA, Disp: , Rfl: 3 ascorbic acid (VITAMIN C) 500 mg tablet,chewable, Take 1 tablet/chew tab (500 mg total) by mouth daily (Patient not taking: Reported on 03/29/2023), Disp: , Rfl: cyanocobalamin, vitamin B-12, 500 mcg lozenge, Take by mouth. (Patient not taking: Reported on 09/21/2022), Disp: , Rfl: DULoxetine DR (CYMBALTA) 30 mg capsule, Take by mouth daily (Patient not taking: Reported on 03/29/2023), Disp: , Rfl: ERGOCALCIFEROL, VITAMIN D2, ORAL, Take 1 capsule by mouth once a week. (Patient not taking: Reported on 09/21/2022), Disp: , Rfl: 0 miconazole 2 % powder, Apply topically 2 (two) times a day. (Patient not taking: Reported on 03/29/2023), Disp: 70 g, Rfl: 0 polyethylene glycol (MIRALAX) 17 gram packet, Take 17 g by mouth 2 (two) times a day as needed (constipation). (Patient not taking: Reported on 03/29/2023), Disp: 15 packet, Rfl: 0 tamsulosin (FLOMAX) 0.4 mg extended release capsule, Take 1 capsule (0.4 mg total) by mouth nightly. (Patient not taking: Reported on 03/29/2023), Disp: 30 capsule, Rfl: 0 LABS AND OTHER DIAGNOSTIC TESTS No results found for: CHOL No results found for: HDL No results found for: LDLCALC No results found for: TRIG No results found for: CHOLHDL Lab Results Component Value Date WBC 7.8 03/22/2019 HGB 8.4 (L) 03/22/2019 HCT 30.0 (L) 03/22/2019 MCV 92.3 03/22/2019 No lab exists for component: LABALBU PHYSICAL EXAM Vitals BP 100/68 (BP Location: Left arm, Patient Position: Sitting) Pulse 75 Ht 180.3 cm (5' 11 ) Wt 115.2 kg (254 lb) SpO2 94% BMI 35.43 kg/m?? Physical Examination: General appearance - alert, well appearing, and in no distress, oriented to person, place, and time and acyanotic, in no respiratory distress Mental status - affect appropriate to mood Eyes - extraocular eye movements intact, sclera anicteric, no pallor Ears - external earsappear normal, hearing grossly normal bilaterally Nose - normal and patent, no erythema or discharge Mouth - mucous membranes moist, pharynx appears normal, dental hygiene good and tongue normal Neck - supple, no significant neck masses, carotids upstroke normal bilaterally, no bruits, no JVD Chest - clear to auscultation, no wheezes, rales or rhonchi, symmetric air entry, no tachypnea, retractions or cyanosis Heart - normal rate, irregular rhythm, normal S1, S2, no murmurs, rubs, clicks or gallops, no JVD Abdomen - soft, nontender, nondistended, no masses or organomegaly bowel sounds normal Neurological - alert, oriented, normal speech, no focal findings or movement disorder noted Musculoskeletal - no joint tenderness, deformity or swelling, no muscular tenderness noted Extremities - peripheral pulses normal, changes of chronic venous stasis and minimal edema are noted, no clubbing or cyanosis Skin - normal coloration and turgor, no rashes, no suspicious skin lesions noted ASSESSMENT Mason was seen today for atrial fibrillation. Diagnoses and all orders for this visit: Chronic atrial fibrillation (HCC) - Ambulatory referral to Cardiology PLAN/RECOMMENDATIONS Continue current rate control and anticoagulation regimen and will continue to see him at 6 month intervals. Epi Lake MD documented in this encounter Miscellaneous Notes * Addendum Note - Andrea Alicea MA - 09/27/2023 1:30 PM CDTAddended by: ANDREA ALICEA on: 09/27/2023 02:35 PM Modules accepted: Orders documented in this encounter Plan of Treatment Not on file documented as of this encounter Procedures Procedure Name Priority Date/Time Associated Diagnosis Comments POCT LIPID PANEL Routine 09/27/2023 2:35 PM CDT Lipid screening documented in this encounter Results * POCT lipid panel (09/27/2023 2:35 PM CDT) Cholesterol, POC 128 mg/dL HDL, POC 53 mg/dL Triglycerides, POC 314 mg/dL LDL Cholesterol POC 13 mg/dL Chol/HDL Ratio, POC 0.2 Non-HDL Cholesterol, POC 75 mg/dL Cholesterol Total, POC 128 mg/dL Capillary blood 09/27/2023 2 :35 PM CDT Epi Lake MD POINT OF CARE TEST ORDER KENDALL Final Result documented in this encounter Visit Diagnoses Diagnosis Lipid screening- Primary Screening for lipoid disorders Chronic atrial fibrillation (HCC) Atrial fibrillation documented in this encounter Historical Medications * This list may reflect changes made after this encounter. fluticasone propionate (FLONASE) 50 mcg/actuation nasal spray Administer 2 sprays into each nostril daily 08/02/2023 added in this encounter Orders Outpatient Referral Count Last Ordered Date Fir st Ordered Date AMB REFERRAL TO CARDIOLOGY 1 09/27/2023 documented in this encounter Care Teams Professor Of Philosophy Relationship Specialty Start Date End Date Napoleon Birmingham MD PCP - General Family Medicine 03/25/22 03/26/24 documented as of this encounter
--- OUTSIDE RECORDS SUMMARY | 2024-05-24 23:22 | XMS_ITS | Encounter Summary ---
Author Organization [facility] Address [address] [facility] [address] [place] [address] Care Team Providers Care Sugar Drier Name Role Phone Napoleon Birmingham MD Primary Care Provider [phone] Reason for Visit * Reason Comments Atrial Fibrillation 6 month follow up. Encounter Details Date Type Department Care Team (Late st Contact Info) Description 09/21/2022 2:30 PM CDT Office Visit [facility] Cardiology [address] [facility] [address] [place] [address] Epi Lake MD [address] [facility] [address] [place] [address] Chronic atrial fibrillation (HCC) (Primary Dx); Lipid screening Social History Tobacco Use Types Packs/Day Years Used Date Smoking Tobacco: Former Cigarettes Q uit: 1982 Smokeless Tobacco: Never Tobacco Cessation:Counseling Given: Not Answered Alcohol Use Standard Drinks/Week Comments No 0 (1 standard drink = 0.6 oz pur e alcohol) Sex and Gender Information Value Date Recorded Sex Assigned at Not on file 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 Gender Identity Not on file Sexual Orientation Not on file documented as of this encounter Last Filed Vital Signs Vital Sign Reading Time Taken Comments Blood Pressure 102/70 09/21/2022 2:41 PM CDT Pulse 100 09/21/2022 2:41 PM CDT Temperature - - Respiratory Rate - - Oxygen Saturation 92% 09/21/2022 2:41 PM CDT Inhaled Oxygen Concentration - - Weight 120.7 kg (266 lb) 09/21/2022 2:41 PM CDT Height 180.3 cm (5' 11 ) 09/21/2022 2:41 PM CDT Body Mass Index 37.1 09/21/2022 2:41 PM CDT documented in this encounter Progress Notes * Epi Lake MD - 09/21/2022 2:30 PM CDT [facility] 09/21/2022 Mason Keys is a 71 y.o. male who presents for follow up of chronic atrial fibrillation. This lisa patient who was initially treated in the past with anti rhythmic therapy with sotalol and was maintaining sinus rhythm. Back in 2015 he lapsed into asymptomatic atrial fibrillation which [...] off the ventilator support. Physicians at the [facility] had placed him on amiodarone for simple rate control. After I saw the patient in follow-up in February of 2018 I transitioned him back to standard beta-fe treatment because the die sinker apprentice at the [facility] did not want him on the amiodarone which is not a drug that I started in the 1st place. He c ontinues to take antibiotics for treatment of chronic vertebral infection. He does have chronic symptoms of exertional dyspnea which I have attributed to both his atrial fibrillation and obesity. He presents today for scheduled six-month follow-up appointment. There are records of him being hospitalized at [facility] in July of this year with shortness of breath and was found to have a COPDexacerbation. Apparently another echocardiogram was done while he is in the hospital and continued to show normal left ventricular systolic function and no significant valvular dysfunction. None of this was new information. The patient was subsequently in the hospital briefly at [facility] or at least seen in the emergency room because his die sinker apprentice down there noted some findings concerning of cellulitis in his lower extremity. He was seen in the emergency room and allowed to be discharged. The patient states that several of these physicians were concerned about the possibilityof DVT. I reminded the patient that he is anticoagulated with apixaban and therefore the risk of DVT is vanishingly small REVIEW OF SYSTEMS General ROS: negative for [...] and rash HOME MEDICATIONS Current Outpatient Medications: ??? acetaminophen (TYLENOL) 325 mg tablet, Take 2 tablets (650 mg total) by mouth every 4 (four) hours as needed for pain, Disp: , Rfl: ??? albuterol (PROVENTIL,VENTOLIN) 2.5 mg/0.5 mL solution for nebulization, Take 1 mL (5 mg total) by nebulization every 6 (six) hours as needed (resp failure)., Disp: 25 each, Rfl: 0 ??? apixaban (ELIQUIS) 5 mg tablet, Take 1 tablet (5 mg total) by mouth 2 (two) times a day., Disp:60 tablet, Rfl: 0 ??? ascorbic acid (VITAMIN C) 500 mg tablet,chewable, Take 1 tablet/chew tab (500 mg total) by mouth daily, Disp: , Rfl: ??? aspirin (ASPIRIN LOW DOSE) 81 mg tablet, Take 1 tablet (81 mg total) by mouth daily., Disp: 30 tablet, Rfl: 0 ??? baclofen (LIORESAL) 10 mg tablet, Take 1 tablet (10 mg total) by mouth 3 (three) times a day with meals. (Patient taking differently: Take 1 tablet (10 mg total) by mouth daily), Disp: 90 tablet,Rfl: 0 ??? benzonatate (TESSALON) 200 mg capsule, Take 1 capsule (200 mg total) by mouth 3 (three) times aday as needed for cough, Disp: , Rfl: ??? Breztri Aerosphere 160-9-4.8 mcg/actuation HFA aerosol inhaler, INHALE 2 PUFFS BY MOUTH EVERY MORNING AND EVERY EVENING, Disp: , Rfl: ??? bumetanide (BUMEX) 0.5 mg tablet, Take 1 tablet (0.5 mg total) by mouth daily. (Patient taking differently: Take 1 tablet (0.5 mg total) by mouth 2 (two) times a day), Disp: 30 tablet, Rfl: 0 ??? camphor-menthol (SARNA) lotion, Apply topically as needed for itching., Disp: 222 mL, Rfl: 0 ??? cetirizine (ZyrTEC) 10 mg tablet, Take 1 tablet (10 mg total) by mouth daily, Disp: , Rfl: ??? Daliresp 500 mcg tablet, , Disp: , Rfl: ??? diphenhydrAMINE (BENADRYL) 25 mg capsule, Take 1 tablet/capsule (25 mg total) by mouth 2 (two) times a day, Disp: , Rfl: ??? doxycycline (VIBRAMYCIN) 100 mg capsule, Take 1 tablet/capsule (100 mg total) by mouth daily, Disp: , Rfl: ??? DULoxetine DR (CYMBALTA) 30 mg capsule, Take by mouth daily, Disp: , Rfl: ??? ferrous fumarate 325 mg (106 mg iron) tablet, Take 1 tablet (325 mg total) by mouth 2 (two) times a day, Disp: , Rfl: ??? gabapentin (NEURONTIN) 100 mg capsule, Take 1 capsule (100 mg total) by mouth nightly, Disp: , Rfl: ??? metoprolol XL (TOPROL-XL) 50 mg extended release tablet, Take 1 tablet (50 mg total) by mouth daily, Disp: , Rfl: ??? miconazole 2 % powder, Apply topically 2 (two) times a day., Disp: 70 g, Rfl: 0 ??? nystatin powder, Apply topically 4 (four) times a day, Disp: , Rfl: ??? omeprazole (PriLOSEC) 40 mg capsule, Take 1 capsule (40 mg total) by mouth daily, Disp: , Rfl: ??? oxygen, 1 L, Disp: , Rfl: ??? polyethylene glycol (MIRALAX) 17 gram packet, Take 17 g by mouth 2 (two) times a day as needed (constipation)., Disp: 15 packet, Rfl: 0 ??? potassium chloride (KLOR-CON) 20 mEq packet, Take 1 packet (20 mEq total) by mouth daily, Disp:, Rfl: ??? spironolactone (ALDACTONE) 25 mg tablet, Take 1 tablet (25 mg total) by mouth daily, Disp: , Rfl: ??? tamsulosin (FLOMAX) 0.4 mg extended release capsule, Take 1 capsule (0.4 mg total) by mouth nightly., Disp: 30 capsule, Rfl: 0 ??? triamcinolone (KENALOG) 0.1 % cream, APPLY A THIN LAYER TOPICALLY FOUR TIMES DAILY TO THE AFFECTED AREA, Disp: , Rfl: 3 ??? cyanocobalamin, vitamin B-12, 500 mcg lozenge, Take by mouth. (Patient not taking: Reported on 09/21/2022), Disp: , Rfl: ??? ergocalciferol (VITAMIN D) 50,000 unit capsule, Take 1 capsule by mouth once a week. (Patient not taking: Reported on 09/21/2022), Disp: , Rfl: 0 ??? folic acid (FOLVITE) 1 mg tablet, Take 1 tablet by mouth daily (Patient not taking: Reported on09/21/2022), Disp: , Rfl: LABS AND OTHER DIAGNOSTIC TESTS No results found for: CHOL No results found for: HDL No results found for: LDLCALC No results found for: TRIG No results found for: CHOLHDL Lab Results Component Value Date WBC 7.8 03/22/2019 HGB 8.4 (L) 03/22/2019 HCT 30.0 (L) 03/22/2019 MCV 92.3 03/22/2019 No lab exists for component: LABALBU PHYSICAL EXAM Vitals BP 102/70 (BP Location: Left arm, Patient Position: Sitting) Pulse 100 Ht 180.3 cm (5' 11 ) Wt 120.7 kg (266 lb) SpO2 92% BMI 37.10 kg/m?? Physical Examination: General appearance - alert, [...] tenderness noted Extremities - peripheral pulses normal, no pedal edema, no clubbing or cyanosis Skin - normal coloration and turgor, no rashes, no suspicious skin lesions noted ASSESSMENT Mason was seen today for atrial fibrillation. Diagnoses and all orders for this visit: Chronic atrial fibrillation (HCC) Lipid screening - POCT lipid panel PLAN/RECOMMENDATIONS Continue current rate control and anticoagulation regimen and will continue to see him at 6 month intervals. Epi Lake MD documented in this encounter Plan of Treatment Not on file documented as of this encounter Procedures Procedure Name Priority Date/Time Associated Diagnosis Comments POCT LIPID PANEL Routine 09/21/2022 2:46 PM CDT Lipid screening documented in this encounter Results * POCT lipid panel (09/21/2022 2:46 PM CDT) Cholesterol, POC 157 mg/dL HDL, POC 48 mg/dL Triglycerides, POC 173 mg/dL LDL Cholesterol POC 75 mg/dL Chol/HDL Ratio, POC 1.5 Non-HDL Cholesterol, POC 109 mg/dL Cholesterol Total, POC 157 mg/dL Capillary blood 09/21/2022 2 :46 PM CDT Epi Lake MD POINT OF CARE TEST ORDER KENDALL Final Result documented in this encounter Visit Diagnoses Diagnosis Chronic atrial fibrillation (HCC)- Primary Atrial fibrillation Lipid screening Screening for lipoid disorders documented in this encounter Care Teams Sugar Drier Relationship Specialty Start Date End Date Napoleon Birmingham MD PCP - General Family Medicine 03/25/22 03/26/24 documented as of this encounter
--- OUTSIDE RECORDS SUMMARY | 2024-05-24 23:22 | XMS_ITS | Encounter Summary ---
Author Organization [facility] Medical Group Address [address] [place] [address] Care Team Providers Care Social Services Specialist Name Role Phone Napoleon Birmingham MD Primary Care Provider [phone] Reason for Visit * Reason Comments Atrial Fibrillation 6 month fu Encounter Details Date Type Department Care Team (Late st Contact Info) Description 03/25/2022 11:15 AM CDT Office Visit [facility] Medical [facility] Cardiology [address] [facility] [address] [place] [address] Epi Lake MD [address] [facility] [address] [facility] [address] [place] [address] Chronic atrial fibrillation (HCC) (Primary Dx) Social History Tobacco Use Types Packs/Day Years Used Date Smoking Tobacco: Former Cigarettes Q uit: 1982 Smokeless Tobacco: Never Tobacco Cessation:Counseling Given: Not Answered Alcohol Use Standard Drinks/Week Comments No 0 (1 standard drink = 0.6 oz pur e alcohol) Sex and Gender Information Value Date Recorded Sex Assigned at Not on file 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 Gender Identity Not on file Sexual Orientation Not on file documented as of this encounter Last Filed Vital Signs Vital Sign Reading Time Taken Comments Blood Pressure 104/60 03/25/2022 11:15 AM CDT Pulse 82 03/25/2022 11:15 AM CDT Temperature - - Respiratory Rate - - Oxygen Saturation 96% 03/25/2022 11:15 AM CDT Inhaled Oxygen Concentration - - Weight 120.2 kg (265 lb) 03/25/2022 11:15 AM CDT Height 180.3 cm (5' 11 ) 03/25/2022 11:15 AM CDT Body Mass Index 36.96 03/25/2022 11:15 AM CDT documented in this encounter Progress Notes * Epi Lake MD - 03/25/2022 11:15 AM CDT [facility] 03/25/2022 Mason Keys is a 71 y.o. 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 Physicians at the [facility] had placed him on amiodarone for simple rate control. After I saw the patient in follow-up in February of 2018 I transitioned him back to standard beta-fe treatment because the cook jelly at the [facility] did not want him on the amiodarone which is not a drug that I started in the 1st place. He c ontinues to take antibiotics for treatment of chronic vertebral infection. He does have chronic symptoms of exertional dyspnea which I have attributed to both his atrial fibrillation and obesity. The patient returns today for a six-month office visit. He is doing well with respect to his atrialfib and does not have any cardiovascular concerns. [facility]. I spoke to him about this because he is on potassium-sparing diuretic as well as a potassium supplement. Obviously his health and wellness advisor is handling that. He is not aware of his atrial fib and has no difficulty tolerating systemic anticoagulation REVIEW OF SYSTEMS General ROS: negative for [...] Medications: acetaminophen (TYLENOL) 325 mg tablet, Take 650 mg by mouth every 4 (four) hours as needed for pain., Disp: , Rfl: albuterol (PROVENTIL,VENTOLIN) 2.5 mg/0.5 mL solution for nebulization, Take 1 mL (5 mg total) by nebulization every 6 (six) hours as needed (resp failure)., Disp: 25 each, Rfl: 0 apixaban (ELIQUIS) 5 mg tablet, Take 1 tablet (5 mg total) by mouth 2 (two) times a day., Disp: 60 tablet, Rfl: 0 ascorbic acid (VITAMIN C) 500 mg tablet,chewable, Take 500 mg by mouth daily., Disp: , Rfl: aspirin (ASPIRIN LOW DOSE) 81 mg tablet, Take 1 tablet (81 mg total) by mouth daily., Disp: 30 tablet, Rfl: 0 baclofen (LIORESAL) 10 mg tablet, Take 1 tablet (10 mg total) by mouth 3 (three) times a day with meals. (Patient taking differently: Take 10 mg by mouth daily), Disp: 90 tablet, Rfl: 0 benzonatate (TESSALON) 200 mg capsule, Take 200 mg by mouth 3 (three) times a day as needed for cough, Disp: , Rfl: Breztri Aerosphere 160-9-4.8 mcg/actuation HFA aerosol inhaler, INHALE 2 PUFFS BY MOUTH EVERY MORNING AND EVERY EVENING, Disp: , Rfl: bumetanide (BUMEX) 0.5 mg tablet, Take 1 tablet (0.5 mg total) by mouth daily. (Patient taking differently: Take 0.5 mg by mouth 2 (two) times a day), Disp: 30 tablet, Rfl: 0 camphor-menthol (SARNA) lotion, Apply topically as needed for itching., Disp: 222 mL, Rfl: 0 cetirizine (ZyrTEC) 10 mg tablet, Take 10 mg by mouth daily, Disp: , Rfl: cyanocobalamin, vitamin B-12, 500 mcg lozenge, Take by mouth., Disp: , Rfl: Daliresp 500 mcg tablet, , Disp: , Rfl: diphenhydrAMINE (BENADRYL) 25 mg capsule, Take 25 mg by mouth 2 (two) times a day., Disp: , Rfl: doxycycline (VIBRAMYCIN) 100 mg capsule, Take 100 mg by mouth daily, Disp: , Rfl: DULoxetine DR (CYMBALTA) 30 mg capsule, Take by mouth daily, Disp: , Rfl: ergocalciferol (VITAMIN D) 50,000 unit capsule, Take 1 capsule by mouth once a week., Disp: , Rfl: 0 ferrous fumarate 325 mg (106 mg iron) tablet, Take 106 mg of elemental iron by mouth 2 (two) times a day, Disp: , Rfl: folic acid (FOLVITE) 1 mg tablet, Take 1 tablet by mouth daily, Disp: , Rfl: gabapentin (NEURONTIN) 100 mg capsule, Take 100 mg by mouth nightly, Disp: , Rfl: metoprolol XL (TOPROL-XL) 50 mg extended release tablet, Take 50 mg by mouth daily, Disp: , Rfl: miconazole 2 % powder, Apply topically 2 (two) times a day., Disp: 70 g, Rfl: 0 nystatin powder, Apply topically 4 (four) times a day, Disp: , Rfl: omeprazole (PriLOSEC) 40 mg capsule, Take 40 mg by mouth daily., Disp: , Rfl: oxygen, 1 L., Disp: , Rfl: polyethylene glycol (MIRALAX) 17 gram packet, Take 17 g by mouth 2 (two) times a day as needed (constipation)., Disp: 15 packet, Rfl: 0 potassium chloride (KLOR-CON) 20 mEq packet, Take 20 mEq by mouth daily , Disp: , Rfl: spironolactone (ALDACTONE) 25 mg tablet, Take 25 mg by mouth daily, Disp: , Rfl: tamsulosin (FLOMAX) 0.4 mg extended release capsule, Take 1 capsule (0.4 mg total) by mouth nightly., Disp: 30 capsule, Rfl: 0 triamcinolone (KENALOG) 0.1 % cream, APPLY A THIN LAYER TOPICALLY FOUR TIMES DAILY TO THE AFFECTED AREA, Disp: , Rfl: 3 LABS AND OTHER DIAGNOSTIC TESTS No results found for: CHOL No results found for: HDL No results found for: LDLCALC No results found for: TRIG No results found for: CHOLHDL Lab Results Component Value Date WBC 7.8 03/22/2019 HGB 8.4 (L) 03/22/2019 HCT 30.0 (L) 03/22/2019 MCV 92.3 03/22/2019 No lab exists for component: LABALBU PHYSICAL EXAM Vitals BP 104/60 (BP Location: Left arm, Patient Position: Sitting) Pulse 82 Ht 180.3 cm (5' 11 ) Wt 120.2 kg (265 lb) SpO2 96% BMI 36.96 kg/m?? Physical Examination: General appearance - alert, [...] for this visit: Chronic atrial fibrillation (HCC) PLAN/RECOMMENDATIONS Continue current rate control and anticoagulation regimen and will continue to see him at 6 month intervals. Epi Lake MD documented in this encounter Plan of Treatment Not on file documented as of this encounter Visit Diagnoses Diagnosis Chronic atrial fibrillation (HCC)- Primary Atrial fibrillation documented in this encounter Historical Medications * This list may reflect changes made after this encounter. FOLIC ACID ORAL Take 1 tablet by mouth daily 02/11/2022 added in this encounter Care Teams Social Services Specialist Relationship Specialty Start Date End Date Napoleon Birmingham MD PCP - General Family Medicine 03/25/22 03/26/24 documented as of this encounter
--- OUTSIDE RECORDS SUMMARY | 2024-05-24 23:22 | XMS_ITS | Encounter Summary ---
Author Organization [facility] Medical Group Address [address] [place] [address] Care Team Providers Care 911 Operator Name Role Phone Napoleon Birmingham MD Primary Care Provider [phone] Encounter Details Date Type Department Care Team (Late st Contact Info) Description 07/21/2022 Orders Only [facility] Health Information Management [address] [place] [address] Scanning, Provider Social History Tobacco Use Types Packs/Day Years Used Date Smoking Tobacco: Former Cigarettes Q uit: 1982 Smokeless Tobacco: Never Alcohol Use Standard Drinks/Week Comments No 0 (1 standard drink = 0.6 oz pur e alcohol) Sex and Gender Information Value Date Recorded Sex Assigned at Not on file 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 Gender Identity Not on file Sexual Orientation Not on file documented as of this encounter Plan of Treatment Not on file documented as of this encounter Procedures Procedure Name Priority Date/Time Associated Diagnosis Comments SCAN - RADIOLOGY/IMAGING 07/21/2022 documented in this encounter Results * SCAN - RADIOLOGY/IMAGING (07/21/2022) Anatomical Region Laterality Modality Other us Provider Scanning Final Result documented in this encounter Visit Diagnoses Not on filedocumented in this encounter Care Teams 911 Operator Relationship Specialty Start Date End Date Napoleon Birmingham MD PCP - General Family Medicine 03/25/22 03/26/24 documented as of this encounter
--- OUTSIDE RECORDS SUMMARY | 2024-05-24 23:22 | XMS_ITS | Encounter Summary ---
Author Organization [facility] Healthcare Address [address] [place] [address] Care Team Providers Care Nursing Center Tutor Name Role Phone Cleo Funk Primary Care Provider + Reason for Visit * Reason Comments Follow-up 6 mo f/u. Discharged from on 01/24/24 Dx: resp failure and CHF Atrial Fibrillation Encounter Details Date Type Department Care Team (Late st Contact Info) Description 03/27/2024 1:45 PM CDT Office Visit [facility] Medical Group Cardiology [address] [address] Epi Lake MD [address] [facility] [address] [place] [address] Chronic atrial fibrillation (HCC) (Primary Dx) Social History Tobacco Use Types Packs/Day Years Used Date Smoking Tobacco: Former Cigarettes Q uit: 1982 Smokeless Tobacco: Never Alcohol Use Standard Drinks/Week Comments No 0 (1 standard drink = 0.6 oz pur e alcohol) Sex and Gender Information Value Date Recorded Sex Assigned at Not on file 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 Gender Identity Not on file Sexual Orientation Not on file documented as of this encounter Last Filed Vital Signs Vital Sign Reading Time Taken Comments Blood Pressure 106/52 03/27/2024 1:37 PM CDT Pulse 70 03/27/2024 1:37 PM CDT Temperature - - Respiratory Rate - - Oxygen Saturation 98% 03/27/2024 1:37 PM CDT with oxygen Inhaled Oxygen Concentration - - Weight 112 kg (247 lb) 03/27/2024 1:37 PM CDT pe r pt Height 180.3 cm (5' 11 ) 03/27/2024 1:37 PM CDT Body Mass Index 34.45 03/27/2024 1:37 PM CDT documented in this encounter Progress Notes * Epi Lake MD - 03/27/2024 1:45 PM CDT [facility] 03/27/2024 Mason Keys is a 73 y.o. 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 Physicians at the [facility] had placed him on amiodarone for simple rate control. After I saw the patient in follow-up in February of 2018 I transitioned him back to standard beta-fe treatment because the supervisor joiners at the [facility] did not want him on the amiodarone which is not a drug that I started in the 1st place. He c ontinues to take antibiotics for treatment of chronic vertebral infection. He does have chronic symptoms of exertional dyspnea which I have attributed to both his atrial fibrillation, COPD and obesity. He returns to the office today for scheduled six-month follow-up appointment. He continues to take metoprolol for heart rate control and apixaban for systemic anticoagulation. He was in the hospital at [facility] in January of this year with shortness of breath. I reviewed the hospice records from that admission. It looks like he had community acquired pneumonia and possibly a COPD exacerbation. There was no chest x-ray or echo evidence of a new cardiac problem. He was concerned that some of the people caring for him in the hospital were telling him that he had heart failure. I did not see any objective evidence of this on the chart. REVIEW OF SYSTEMS General ROS: negative for [...] as needed for pain, Disp: , Rfl: acidophilus-pectin, citrus 100 million cell-10 mg capsule, Take by mouth, Disp: , Rfl: albuterol (PROVENTIL,VENTOLIN) 2.5 mg/0.5 [...] 500 mcg tablet, , Disp: , Rfl: doxycycline (VIBRAMYCIN) 100 mg [...] capsule, Take by mouth, Disp: , Rfl: mesalamine (ROWASA) 4 gram/60 mL enema, INSERT 60MLS (4G) RECTALLY TWICE A DAY FOR 90 DAYS, Disp: ,Rfl: metoprolol XL (TOPROL-XL) 50 mg extended release tablet, Take 1 tablet (50 mg total) by mouth daily, Disp: , Rfl: miconazole 2 % powder, Apply topically 2 (two) times a day., Disp: 70 g, Rfl: 0 nystatin powder, Apply topically 4 (four) times a day, Disp: , Rfl: omeprazole (PriLOSEC) 40 mg capsule, Take 1 capsule (40 mg total) by mouth daily, Disp: , Rfl: oxygen, 1 L, Disp: , Rfl: spironolactone (ALDACTONE) 25 mg tablet, Take 0.5 tablets (12.5 mg total) by mouth daily, Disp: , Rfl: tamsulosin (FLOMAX) 0.4 mg extended release capsule, Take 1 capsule (0.4 mg total) by mouth nightly., Disp: 30 capsule, Rfl: 0 triamcinolone (KENALOG) 0.1 % cream, APPLY A THIN LAYER TOPICALLY FOUR TIMES DAILY TO THE AFFECTED AREA, Disp: , Rfl: 3 vitamin B complex capsule, Take 1 capsule by mouth daily, Disp: , Rfl: LABS AND OTHER DIAGNOSTIC TESTS No results found for: CHOL No results found for: HDL No results found for: LDLCALC No results found for: TRIG No results found for: CHOLHDL Lab Results Component Value Date WBC 7.8 03/22/2019 HGB 8.4 (L) 03/22/2019 HCT 30.0 (L) 03/22/2019 MCV 92.3 03/22/2019 No lab exists for component: LABALBU PHYSICAL EXAM Vitals BP 106/52 (BP Location: Left arm, Patient Position: Sitting) Pulse 70 Ht 180.3 cm (5' 11 ) Wt 112 kg (247 lb) SpO2 98% BMI 34.45 kg/m?? Physical Examination: General appearance - alert, [...] noted ASSESSMENT Mason was seen today for follow-up and atrial fibrillation. Diagnoses and all orders for this visit: Chronic atrial fibrillation (HCC) PLAN/RECOMMENDATIONS Continue current rate control and anticoagulation regimen and will continue to see him at 6 month intervals. Reassured the patient and his that according to the records his cardiac condition is stable with his chronic AF. Epi Lake MD documented in this encounter Plan of Treatment Not on file documented as of this encounter Visit Diagnoses Diagnosis Chronic atrial fibrillation (HCC)- Primary Atrial fibrillation documented in this encounter Discontinued Medications Medication Sig Discontinue Reason Start Date End Da te ascorbic acid (VITAMIN C) 500 mg tablet,chewable Take 1 tablet/chew tab (500 mg total) by mouth daily Therapy completed 03/27/2024 cyanocobalamin, vitamin B-12, 500 mcg lozenge Take by mouth. Therapy completed 03/27/20 diphenhydrAMINE (BENADRYL) 25 mg capsule Take 1 tablet/capsule (25 mg total) by mouth 2 (two) times a day Therapy completed 03/27/[address] (CYMBALTA) 30 mg capsule Take by mouth daily Therapy completed 07/24/2020 03/27/2024 ERGOCALCIFEROL, VITAMIN D2, ORAL Take 1 capsule by mouth once a week. Therapy completed 02/02/2018 03/27/2024 polyethylene glycol (MIRALAX) 17 gram packet Take 17 g by mouth 2 (two) times a day as needed (constipation). Therapy completed 11/09/2017 03/27/2024 potassium chloride (KLOR-CON) 20 mEq packet Take 1 packet (20 mEq total) by mouth daily Therapy completed 03/27/2024 documented as of this encounter Historical Medications * This list may reflect changes made after this encounter. acidophilus-pecti n, citrus 100 million cell-10 mg capsule Take by mouth vitamin B complex capsule Take 1 capsule by mouth daily mesalamine (ROWASA) 4 gram/60 mL enema INSERT 60MLS (4G) RECTALLY TWICE A DAY FOR 90 DAYS 12/27/2023 added in this encounter Care Teams Nursing Center Tutor Relationship Specialty Start Date End Date Cleo Funk DO [facility] [facility] [address] [place] [id number] PCP - General Family Medicine 03/27/24 documented as of this encounter
--- OUTSIDE RECORDS SUMMARY | 2024-05-24 23:22 | XMS_ITS | Encounter Summary ---
Author Organization [facility] Healthcare Address [address] [place] [address] Care Team Providers Care Vacuum Furnace Operator Name Role Phone Napoleon Birmingham MD Primary Care Provider [phone] Reason for Visit * Reason Comments Atrial Fibrillation 6 mo f/u Encounter Details Date Type Department Care Team (Late st Contact Info) Description 03/29/2023 2:15 PM CDT Office Visit [facility] Cardiology [address] [place] [address] Epi Lake MD [address] [place] [address] Chronic atrial fibrillation (HCC) (Primary Dx) Social History Tobacco Use Types Packs/Day Years Used Date Smoking Tobacco: Former Cigarettes Q uit: 1982 Smokeless Tobacco: Never Alcohol Use Standard Drinks/Week Comments No 0 (1 standard drink = 0.6 oz pur e alcohol) Sex and Gender Information Value Date Recorded Sex Assigned at Not on file 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 Gender Identity Not on file Sexual Orientation Not on file documented as of this encounter Last Filed Vital Signs Vital Sign Reading Time Taken Comments Blood Pressure 116/64 03/29/2023 2:04 PM CDT Pulse 71 03/29/2023 2:04 PM CDT Temperature - - Respiratory Rate - - Oxygen Saturation 92% 03/29/2023 2:04 PM CDT Inhaled Oxygen Concentration - - Weight 112.1 kg (247 lb 3.2 oz) 03/29/2023 2:04 PM CDT Height 180.3 cm (5' 11 ) 03/29/2023 2:04 PM CDT Body Mass Index 34.48 03/29/2023 2:04 PM CDT documented in this encounter Progress Notes * Epi Lake MD - 03/29/2023 2:15 PM CDT [facility] 03/29/2023 Mason Keys is a 72 y.o. male [...] off the ventilator support. Physicians at the [facility] had placed him on amiodarone for simple rate control. After I saw the patient in follow-up in February of 2018 I transitioned him back to standard beta-fe treatment because the network field engineer at the [place] [facility] did not want him on the amiodarone which is not a drug that I started in the 1st place. He c ontinues to take antibiotics for treatment of chronic vertebral infection. He does have chronic symptoms of exertional dyspnea which I have attributed to both his atrial fibrillation and obesity. Presents today for scheduled six-month appointment. He continues to take apixaban for anticoagulation and metoprolol for rate control. His principal health problems recently have been related to COPDand chronic shortness of breath as well as cellulitis of his lower extremity. Cardiac-mcmanus he is doing well he has no cardiovascular symptoms or awareness of being in atrial fibrillation. Had a long discussion with he and his about the principles of lower extremity elevation is a pertains to venous insufficiency of the lower extremity REVIEW OF SYSTEMS General ROS: negative for [...] a day., Disp:60 tablet, Rfl: 0 ??? aspirin (ASPIRIN LOW DOSE) 81 mg tablet, Take 1 tablet (81 mg total) by mouth daily., Disp: 30tablet, Rfl: 0 ??? baclofen (LIORESAL) 10 mg [...] needed for cough, Disp: , Rfl: ??? Jung Aerosphere 160-9-4.8 mcg/actuation HFA aerosol inhaler, INHALE [...] by mouth daily, Disp: , Rfl: ??? cholecalciferol 25 mcg (1,000 unit) tablet, Take 1 tablet (1,000 Units total) by mouth daily, Disp: , Rfl: [...] mouth daily with breakfast, Disp: , Rfl: ??? FOLIC ACID ORAL, Take 1 tablet by mouth daily, Disp: , Rfl: ??? gabapentin (NEURONTIN) 100 mg capsule, Take 2 capsules (200 mg total) by mouth nightly, Disp: ,Rfl: ??? magnesium oxide 400 mg magnesium capsule, Take by mouth, Disp: , Rfl: ??? metoprolol XL (TOPROL-XL) 50 mg extended release tablet, Take 1 tablet (50 mg total) by mouth daily, Disp: , Rfl: ??? nystatin powder, Apply topically 4 (four) times a day, Disp: , Rfl: ??? omeprazole (PriLOSEC) 40 mg capsule, Take 1 capsule (40 mg total) by mouth daily, Disp: , Rfl: ??? oxygen, 1 L, Disp: , Rfl: ??? potassium chloride (KLOR-CON) 20 mEq packet, Take 1 packet (20 mEq total) by mouth daily, Disp:, Rfl: ??? spironolactone (ALDACTONE) 25 mg tablet, Take 0.5 tablets (12.5 mg total) by mouth daily, Disp:, Rfl: ??? triamcinolone (KENALOG) 0.1 % cream, APPLY A THIN LAYER TOPICALLY FOUR TIMES DAILY TO THE AFFECTED AREA, Disp: , Rfl: 3 ??? ascorbic acid (VITAMIN C) 500 mg tablet,chewable, Take 1 tablet/chew tab (500 mg total) by mouth daily (Patient not taking: Reported on 03/29/2023), Disp: , Rfl: ??? cyanocobalamin, vitamin B-12, 500 mcg lozenge, Take by mouth. (Patient not taking: Reported on 09/21/2022), Disp: , Rfl: ??? DULoxetine DR (CYMBALTA) 30 mg capsule, Take by mouth daily (Patient not taking: Reported on 03/29/2023), Disp: , Rfl: ??? ERGOCALCIFEROL, VITAMIN D2, ORAL, Take 1 capsule by mouth once a week. (Patient not taking: Reported on 09/21/2022), Disp: , Rfl: 0 ??? miconazole 2 % powder, Apply topically 2 (two) times a day. (Patient not taking: Reported on 03/29/2023), Disp: 70 g, Rfl: 0 ??? polyethylene glycol (MIRALAX) 17 gram packet, Take 17 g by mouth 2 (two) times a day as needed (constipation). (Patient not taking: Reported on 03/29/2023), Disp: 15 packet, Rfl: 0 ??? tamsulosin (FLOMAX) 0.4 mg extended release [...] for component: LABALBU PHYSICAL EXAM Vitals BP 116/64 (BP Location: Left arm, Patient Position: Sitting) Pulse 71 Ht 180.3 cm (5' 11 ) Wt 112.1 kg (247 lb 3.2 oz) SpO2 92% BMI 34.48 kg/m?? Physical Examination: General appearance - alert, [...] may reflect changes made after this encounter. magnesium oxide 400 mg magnesium capsule Take by mouth cholecalciferol 25 mcg (1,000 unit) tablet Take 1 tablet (1,000 Units total) by mouth daily added in this encounter Care Teams Vacuum Furnace Operator Relationship Specialty Start Date End Date Napoleon Birmingham MD PCP - General Family Medicine 03/25/22 03/26/24 documented as of this encounter
--- OUTSIDE RECORDS SUMMARY | 2024-05-24 23:22 | XMS_ITS | Clinical Summary ---
Author Organization Unknown Care Team Providers Care Gauge And Weigh Machine Operator Name Role Phone LUISA TUCKER, SHAQ Unavailable Unavailable ERICA RN, DINORAH Unavailable Unavailable FRANCESCA GENERAL UTILITY MACHINE OPERATOR, TAYLOR Unavailable Unavailable CORNELIA PT, DENITA Unavailable Unavailable MARBIN SMOOTH STUCCO RESURFACER, YURI Unavailable Unavailestrellita WATSON OT, VANDANA Unavailable Unavailable SAJI QUIROS/HEATHER, ALTAF Unavailable Unavail able Payers Payer Name Policy Type Policy Number Effective Date Expira tion Date [facility] [id number] SELF PAY SECONDARY MEDICARE[facility] [id number] Problems Condition Name Condition Details Condition Category Status Onset Date Resolution Date Last Treatment Date Treating Clinician Comments UNSP FRACTURE OF T11-T12 VERTEBRA, SUBS FOR FX W ROUTN HEAL Active 12-25 00:00: 00 LOW BACK PAIN Active 12-25 00:00: 00 HYPERTENSIVE HEART DISEASE WITH HEART FAILURE Active 12-23 00:00: 00 CHRONIC DIASTOLIC (CONGESTIVE) HEART FAILURE Active 12-23 00:00: 00 UNSPECIFIED ATRIAL FIBRILLATION Active 06-06 00:00: 00 CHRONIC OBSTRUCTIVE PULMONARY DISEASE, UNSPECIFIED Active 06-06 00:00: 00 CHRONIC RESPIRATORY FAILURE WITH HYPOXIA Active 06-06 00:00: 00 OTHER FORMS OF SCOLIOSIS, SITE UNSPECIFIED Active - 00:00: 00 SPONDYLOSIS, UNSPECIFIED Active - 00:00: 00 OTH DISRD OF BONE DENSITY AND STRUCTURE, UNSPECIFIED SITE Active - 00:00: 00 BENIGN PROSTATIC HYPERPLASIA WITHOUT LOWER URINRY TRACT SYMP Active - 00:00: 00 UNSPECIFIED CIRRHOSIS OF LIVER Active - 00:00: 00 OBSTRUCTIVE SLEEP APNEA (ADULT) (PEDIATRIC) Active 06-06 00:00: 00 RETIREMENT (CURRENT) USE OF ANTICOAGULAN TS Active 06-06 00:00: 00 HISTORY OF FALLING Active 06-06 00:00: 00 PERSONAL HISTORY OF METHICILLIN RESIS STAPH INFECTION Active 06-06 00:00: 00 PRSNL HX OF TIA (TIA), AND CEREB INFRC W/O RESID DEFICITS Active 06-06 00:00: 00 PERSONAL HISTORY OF OTHER VENOUS THROMBOSIS AND EMBOLISM Active 06-06 00:00: 00 PERSONAL HISTORY OF NICOTINE DEPENDENCE Active 06-06 00:00: 00 UNSP FRACTURE OF T11-T12 VERTEBRA, INIT FOR CLOS FX Active 12-25 00:00: 00 Allergies, Adverse Reactions, Alerts Allergy Name Allergy Type Status Severity Reaction(s) Onset Date Inactive Date Treating Clinician Comments NO KNOWN ALLERGIES Propensity to adverse reactions Active 12-28 20:12: 22 Vital Signs Vital Name Observation Time Observation Value Commen Temperature 2020-02-26 10:14:27.000 98.5 [degF] Temperature 2020-02-25 15:33:03.000 97.3 [degF] Temperature 2020-02-21 08:48:24.000 97.1 [degF] Temperature 2020-02-18 14:29:17.000 98 [degF] Temperature 2020-02-14 12:52:00.000 97.5 [degF] Temperature 2020-02-12 12:32:24.000 98 [degF] Temperature 2020-02-09 13:16:47.000 97.6 [degF] Temperature 2020-02-05 10:14:55.000 97.8 [degF] Temperature 2020-01-30 12:58:43.000 97.2 [degF] Temperature 2020-01-28 15:17:39.000 98 [degF] Temperature 2020-01-25 15:01:23.000 98.1 [degF] Temperature 2020-01-23 11:42:43.000 97.4 [degF] Temperature 2020-01-22 14:44:15.000 97.6 [degF] Temperature 2020-01-18 11:00:22.000 97.4 [degF] Temperature 2020-01-17 09:33:11.000 98 [degF] Temperature 2020-01-15 14:00:45.000 97.6 [degF] Temperature 2020-01-11 14:10:44.000 97.1 [degF] Temperature 2020-01-11 11:04:37.000 97.7 [degF] Temperature 2020-01-07 16:16:57.000 97.5 [degF] Temperature 2020-01-03 11:15:53.000 97.6 [degF] Temperature 2020-01-02 15:30:00.000 97.8 [degF] Temperature 2020-01-02 08:18:19.000 97.9 [degF] Temperature 2019-12-31 09:53:45.000 98 [degF] Temperature 2019-12-29 11:25:29.000 96.8 [degF] Pulse 2020-02-26 10:15:12.000 82 /min Pulse 2020-02-25 15:33:43.000 91 /min Pulse 2020-02-21 08:47:19.000 68 /min Pulse 2020-02-18 14:26:21.000 84 /min Pulse 2020-02-14 12:52:42.000 86 /min Pulse 2020-02-12 12:32:41.000 87 /min Pulse 2020-02-09 13:16:59.000 86 /min Pulse 2020-02-05 10:15:05.000 90 /min Pulse 2020-01-30 12:58:53.000 67 /min Pulse 2020-01-28 15:17:47.000 76 /min Pulse 2020-01-25 15:01:35.000 67 /min Pulse 2020-01-23 11:42:55.000 77 /min Pulse 2020-01-22 14:43:38.000 76 /min Pulse 2020-01-18 11:00:31.000 88 /min Pulse 2020-01-17 09:34:12.000 98 /min Pulse 2020-01-15 14:01:50.000 65 /min Pulse 2020-01-11 14:11:20.000 84 /min Pulse 2020-01-11 11:05:10.000 84 /min Pulse 2020-01-07 16:17:12.000 82 /min Pulse 2020-01-03 11:17:29.000 77 /min Pulse 2020-01-02 15:30:10.000 69 /min Pulse 2020-01-02 08:18:25.000 75 /min Pulse 2019-12-31 09:54:28.000 68 /min Pulse 2019-12-29 11:25:42.000 70 /min O2 Saturation (%) 2020-02-26 10:16:47.000 100 % O2 Saturation (%) 2020-02-25 15:35:48.000 98 % O2 Saturation (%) 2020-02-21 08:47:34.000 98 % O2 Saturation (%) 2020-02-18 14:26:40.000 97 % O2 Saturation (%) 2020-02-14 12:53:22.000 98 % O2 Saturation (%) 2020-02-12 12:33:12.000 98 % O2 Saturation (%) 2020-02-05 10:15:14.000 97 % O2 Saturation (%) 2020-01-30 12:59:25.000 97 % O2 Saturation (%) 2020-01-28 15:18:01.000 98 % O2 Saturation (%) 2020-01-25 15:01:55.000 97 % O2 Saturation (%) 2020-01-22 14:42:44.000 97 % O2 Saturation (%) 2020-01-18 11:02:03.000 97 % O2 Saturation (%) 2020-01-17 09:34:30.000 100 % O2 Saturation (%) 2020-01-15 14:04:08.000 97 % O2 Saturation (%) 2020-01-11 14:11:47.000 96 % O2 Saturation (%) 2020-01-11 11:17:22.000 98 % O2 Saturation (%) 2020-01-07 16:17:32.000 98 % O2 Saturation (%) 2020-01-03 11:17:20.000 99 % O2 Saturation (%) 2020-01-02 15:30:29.000 99 % O2 Saturation (%) 2020-01-02 08:18:51.000 96 % O2 Saturation (%) 2019-12-31 09:54:39.000 98 % O2 Saturation (%) 2019-12-29 11:27:13.000 99 % Respirations 2020-02-26 10:17:05.000 18 /min Respirations 2020-02-25 15:33:49.000 18 /min Respirations 2020-02-21 08:49:43.000 18 /min Respirations 2020-02-18 14:26:27.000 18 /min Respirations 2020-02-14 12:52:53.000 18 /min Respirations 2020-02-12 12:32:48.000 18 /min Respirations 2020-02-09 13:17:11.000 18 /min Respirations 2020-02-05 10:15:34.000 18 /min Respirations 2020-01-30 12:59:02.000 18 /min Respirations 2020-01-28 15:17:54.000 18 /min Respirations 2020-01-25 15:01:42.000 18 /min Respirations 2020-01-23 11:43:01.000 18 /min Respirations 2020-01-22 14:43:45.000 18 /min Respirations 2020-01-18 11:00:40.000 18 /min Respirations 2020-01-17 09:34:52.000 18 /min Respirations 2020-01-15 14:00:54.000 18 /min Respirations 2020-01-11 14:11:26.000 18 /min Respirations 2020-01-11 11:16:14.000 18 /min Respirations 2020-01-07 16:17:20.000 18 /min Respirations 2020-01-03 11:17:36.000 18 /min Respirations 2020-01-02 15:30:40.000 18 /min Respirations 2020-01-02 08:18:32.000 18 /min Respirations 2019-12-31 09:55:12.000 18 /min Respirations 2019-12-29 11:26:29.000 20 /min Weight (lbs) 2020-02-26 10:18:16.000 218.1 [lb_av] Weight (lbs) 2020-02-21 08:50:19.000 217.8 [lb_av] Weight (lbs) 2020-02-14 12:55:17.000 216.6 [lb_av] Weight (lbs) 2020-01-30 13:01:38.000 214.3 [lb_av] Weight (lbs) 2020-01-22 14:44:41.000 212 [lb_av] Weight (lbs) 2020-01-17 09:38:26.000 208.2 [lb_av] Weight (lbs) 2020-01-11 11:17:36.000 207 [lb_av] Weight (lbs) 2020-01-03 11:17:09.000 205.5 [lb_av] Systolic Blood Pressure 2020-02-26 10:13:51.000 132 mm [Hg] Systolic Blood Pressure 2020-02-25 15:35:40.000 140 mm [Hg] Systolic Blood Pressure 2020-02-21 08:49:28.000 146 mm [Hg] Systolic Blood Pressure 2020-02-18 14:29:30.000 128 mm [Hg] Systolic Blood Pressure 2020-02-14 12:53:10.000 138 mm [Hg] Systolic Blood Pressure 2020-02-12 12:33:04.000 140 mm [Hg] Systolic Blood Pressure 2020-02-09 13:17:28.000 118 mm [Hg] Systolic Blood Pressure 2020-02-05 10:15:28.000 128 mm [Hg] Systolic Blood Pressure 2020-01-30 13:01:17.000 125 mm [Hg] Systolic Blood Pressure 2020-01-28 15:17:28.000 130 mm [Hg] Systolic Blood Pressure 2020-01-25 15:05:07.000 130 mm [Hg] Systolic Blood Pressure 2020-01-23 11:43:22.000 128 mm [Hg] Systolic Blood Pressure 2020-01-22 14:47:47.000 122 mm [Hg] Systolic Blood Pressure 2020-01-18 11:01:54.000 122 mm [Hg] Systolic Blood Pressure 2020-01-17 09:37:49.000 100 mm [Hg] Systolic Blood Pressure 2020-01-15 14:03:59.000 119 mm [Hg] Systolic Blood Pressure 2020-01-11 14:11:37.000 128 mm [Hg] Systolic Blood Pressure 2020-01-11 11:16:49.000 128 mm [Hg] Systolic Blood Pressure 2020-01-07 16:18:53.000 130 mm [Hg] Systolic Blood Pressure 2020-01-03 11:19:47.000 132 mm [Hg] Systolic Blood Pressure 2020-01-02 15:33:13.000 121 mm [Hg] Systolic Blood Pressure 2020-01-02 08:18:41.000 136 mm [Hg] Systolic Blood Pressure 2019-12-31 09:56:53.000 120 mm [Hg] Systolic Blood Pressure 2019-12-29 11:26:13.000 120 mm [Hg] Diastolic Blood Pressure 2020-02-26 10:13:51.000 70 mm [Hg] Diastolic Blood Pressure 2020-02-25 15:35:40.000 78 mm [Hg] Diastolic Blood Pressure 2020-02-21 08:49:28.000 72 mm [Hg] Diastolic Blood Pressure 2020-02-18 14:29:30.000 72 mm [Hg] Diastolic Blood Pressure 2020-02-14 12:53:10.000 72 mm [Hg] Diastolic Blood Pressure 2020-02-12 12:33:04.000 80 mm [Hg] Diastolic Blood Pressure 2020-02-09 13:17:28.000 78 mm [Hg] Diastolic Blood Pressure 2020-02-05 10:15:28.000 78 mm [Hg] Diastolic Blood Pressure 2020-01-30 13:01:17.000 74 mm [Hg] Diastolic Blood Pressure 2020-01-28 15:17:28.000 76 mm [Hg] Diastolic Blood Pressure 2020-01-25 15:05:07.000 80 mm [Hg] Diastolic Blood Pressure 2020-01-23 11:43:22.000 76 mm [Hg] Diastolic Blood Pressure 2020-01-22 14:47:47.000 80 mm [Hg] Diastolic Blood Pressure 2020-01-18 11:01:54.000 66 mm [Hg] Diastolic Blood Pressure 2020-01-17 09:37:49.000 68 mm [Hg] Diastolic Blood Pressure 2020-01-15 14:03:59.000 60 mm [Hg] Diastolic Blood Pressure 2020-01-11 14:11:37.000 74 mm [Hg] Diastolic Blood Pressure 2020-01-11 11:16:49.000 74 mm [Hg] Diastolic Blood Pressure 2020-01-07 16:18:53.000 84 mm [Hg] Diastolic Blood Pressure 2020-01-03 11:19:47.000 88 mm [Hg] Diastolic Blood Pressure 2020-01-02 15:33:13.000 70 mm [Hg] Diastolic Blood Pressure 2020-01-02 08:18:41.000 72 mm [Hg] Diastolic Blood Pressure 2019-12-31 09:56:53.000 70 mm [Hg] Diastolic Blood Pressure 2019-12-29 11:26:13.000 70 mm [Hg] Plan of Treatment Planned Activity Planned Date Details Comments Future Scheduled Test SKILLED NU RSE TO ASSESS, EVALUATE, AND DEVELOP AN INDIVIDUALIZED PLAN OF CARE. AGENCY MAY ACCEPT ORDERS FROM CONSULTING PHYSICIANS ROGELIO HAMILTON TO OBSERVE/ASSESS RISK FOR FALLS AND INSTRUCT IN FALL PREVENTION, HOME SAFETY, MEDICATION MANAGEMENT, INFECTION PREVENTION, AND NUTRITION MANAGEMENT. SN MAY PERFORM O2 SATURATION LEVEL ON ADMISSION AND PRN TO ASSESS PATIENT, WITH NOTIFICATION TO THE PHYSICIAN IF SATURATION IS 90% IN THE ABSENCE OF MORE SPECIFIC PARAMETERS FROM THE PHYSICIAN. AGENCY MAY PERFORM A RESUMPTION OF CARE VISIT FOLLOWING ANY HOSPITAL ADMISSION. ALL DISCIPLINES (EXCEPT PLANNING ANALYST) MAY PROVIDE TELEHEALTH PHONE/REMOTE/VIRTUAL VISITS IN LIEU OF AN IN-PERSON VISIT THAT DOES NOT REQUIRE HANDS ON OR IN PERSON ASSESSMENT WHEN AN IN-PERSON VISIT IS NOT POSSIBLE DUE TO THE PUBLIC HEALTH EMERGENCY RELATED TO THE COVID- PANDEMIC. SKILLED NURSE TO INSTRUCT PATIENT / CAREGIVER ON DISEASE PROCESS, SELF MANAGEMENT, SIGNS AND SYMPTOMS TO REPORT TO SN/PHYSICIAN, RELATED TO: L12 FRACTURE PAIN MANAGEMENT AND CONSTIPATION, MED MANAGEMENT, LABS 01/03/20 BMP [code = SKILLED NURSE TO ASSESS, EVALUATE, AND DEVELOP AN INDIVIDUALIZED PLAN OF CARE. AGENCY MAY ACCEPT ORDERS FROM CONSULTING PHYSICIANS ROGELIO HAMILTON TO OBSERVE/ASSESS RISK FOR FALLS AND INSTRUCT IN FALL PREVENTION, HOME SAFETY, MEDICATION MANAGEMENT, INFECTION PREVENTION, AND NUTRITION MANAGEMENT. SN MAY PERFORM O2 SATURATION LEVEL ON ADMISSION AND PRN TO ASSESS PATIENT, WITH NOTIFICATION TO THE PHYSICIAN IF SATURATION IS 90% IN THE ABSENCE OF MORE SPECIFIC PARAMETERS FROM THE PHYSICIAN. AGENCY MAY PERFORM A RESUMPTION OF CARE VISIT FOLLOWING ANY HOSPITAL ADMISSION. ALL DISCIPLINES (EXCEPT PLANNING ANALYST) MAY PROVIDE TELEHEALTH PHONE/REMOTE/VIRTUAL VISITS IN LIEU OF AN IN-PERSON VISIT THAT DOES NOT REQUIRE HANDS ON OR IN PERSON ASSESSMENT WHEN AN IN-PERSON VISIT IS NOT POSSIBLE DUE TO THE PUBLIC HEALTH EMERGENCY RELATED TO THE COVID-19 PANDEMIC. SKILLED NURSE TO INSTRUCT PATIENT / CAREGIVER ON DISEASE PROCESS, SELF MANAGEMENT, SIGNS AND SYMPTOMS TO REPORT TO SN/PHYSICIAN, RELATED TO: L12 FRACTURE PAIN MANAGEMENT AND CONSTIPATION, MED MANAGEMENT, LABS 01/03/20 BMP] Future Scheduled Test MEDICATION MANAGEMENT; SKILLED NURSE TO REVIEW MEDICATIONS FOR INTERACTIONS, EFFECTIVENESS OF DRUG THERAPY, AND SIGNS/SYMPTOMS OF ADVERSE REACTIONS. MAY INSTRUCT AND REINFORCE MEDICATION TEACHING RELATED TO THE USE OF MEDICATIONS, DOSAGE, FREQUENCY, PURPOSE, SIDE EFFECTS, AND TO REPORT COMPLICATIONS. [code = MEDICATION MANAGEMENT; SKILLED NURSE TO REVIEW MEDICATIONS FOR INTERACTIONS, EFFECTIVENESS OF DRUG THERAPY, AND SIGNS/SYMPTOMS OF ADVERSE REACTIONS. MAY INSTRUCT AND REINFORCE MEDICATION TEACHING RELATED TO THE USE OF MEDICATIONS, DOSAGE, FREQUENCY, PURPOSE, SIDE EFFECTS, AND TO REPORT COMPLICATIONS.] Future Scheduled Test ANTICOAGUL ATION MANAGEMENT; SKILLED NURSE TO ASSESS, TEACH, AND MONITOR EFFECTIVENESS OF ANTICOAGULATION THERAPY. SKILLED NURSE TO INSTRUCT ON SIGNS AND SYMPTOMS OF BLEEDING/ADVERSE REACTIONS TO REPORT [code = ANTICOAGULATION MANAGEMENT; SKILLED NURSE TO ASSESS, TEACH, AND MONITOR EFFECTIVENESS OF ANTICOAGULATION THERAPY. SKILLED NURSE TO INSTRUCT ON SIGNS AND SYMPTOMS OF BLEEDING/ADVERSE REACTIONS TO REPORT ] Future Scheduled Test RESPIRATOR Y SYSTEM MANAGEMENT; SKILLED NURSE TO ASSESS AND TEACH RELATED TO ALTERED RESPIRATORY STATUS TO MINIMIZE COMPLICATIONS AND REDUCE HOSPITALIZATION. [code = RESPIRATORY SYSTEM MANAGEMENT; SKILLED NURSE TO ASSESS AND TEACH RELATED TO ALTERED RESPIRATORY STATUS TO MINIMIZE COMPLICATIONS AND REDUCE HOSPITALIZATION.] Future Scheduled Test COPD MANAG EMENT; SKILLED NURSE TO ASSESS AND TEACH SIGNS/SYMPTOMS OF COPD EXACERBATION AND PROVIDE EARLY INTERVENTIONS TO MINIMIZE RISK OF HOSPITALIZATION. [facility]ENT [facility] IN [facility] SKILLED NURSE TO INSTRUCT ON SELF-CARE MANAGEMENT INCLUDING BREATHING TECHNIQUES, AIRWAY CLEARANCE, AND PROPER USE OF COPD MEDICATIONS. ASSESS PATIENT/CAREGIVER ABILITY TO MONITOR AND RECORD VITALS SIGNS INCLUDING PULSE OXIMETRY AND BLOOD PRESSURE. PULSE OXIMETER AND BP MONITOR TO BE PROVIDED IF NEEDED [code = COPD MANAGEMENT; SKILLED NURSE TO ASSESS AND TEACH SIGNS/SYMPTOMS OF COPD EXACERBATION AND PROVIDE EARLY INTERVENTIONS TO MINIMIZE RISK OF HOSPITALIZATION. [facility] IN [facility] SKILLED NURSE TO INSTRUCT ON SELF-CARE MANAGEMENT INCLUDING BREATHING TECHNIQUES, AIRWAY CLEARANCE, AND PROPER USE OF COPD MEDICATIONS. ASSESS PATIENT/CAREGIVER ABILITY TO MONITOR AND RECORD VITALS SIGNS INCLUDING PULSE OXIMETRY AND BLOOD PRESSURE. PULSE OXIMETER AND BP MONITOR TO BE PROVIDED IF NEEDED ] Future Scheduled Test OXYGEN THE RAPY; SKILLED NURSE TO INSTRUCT ON OXYGEN MANAGEMENT INCLUDING: ADMINISTRATION AT 1 L/MIN VIA DE CONTINUOUS CARE OF EQUIPMENT AND SAFETY. [code = OXYGEN THERAPY; SKILLED NURSE TO INSTRUCT ON OXYGEN MANAGEMENT INCLUDING: ADMINISTRATION AT 1 L/MIN VIA DE CONTINUOUS CARE OF EQUIPMENT AND SAFETY.] Future Scheduled Test PAIN MANAG EMENT; SKILLED NURSE TO OBSERVE, ASSESS, AND PROVIDE EDUCATION ON PAIN MANAGEMENT TECHNIQUES. [code = PAIN MANAGEMENT; SKILLED NURSE TO OBSERVE, ASSESS, AND PROVIDE EDUCATION ON PAIN MANAGEMENT TECHNIQUES.] Future Scheduled Test FALL REDUC TION MANAGEMENT; NURSING TO PROVIDE SKILLED ASSESSMENT, EDUCATION, AND INTERVENTION TO IDENTIFY FALL RISK FACTORS SUCH MEDICATIONS THAT MAY CAUSE DIZZINESS, CHRONIC DISEASES, PSYCHOLOGICAL FACTORS, AND EMPOWER/EDUCATE PATIENT/CAREGIVER TO MINIMIZE FALL RISK. [code = FALL REDUCTION MANAGEMENT; NURSING TO PROVIDE SKILLED ASSESSMENT, EDUCATION, AND INTERVENTION TO IDENTIFY FALL RISK FACTORS SUCH MEDICATIONS THAT MAY CAUSE DIZZINESS, CHRONIC DISEASES, PSYCHOLOGICAL FACTORS, AND EMPOWER/EDUCATE PATIENT/CAREGIVER TO MINIMIZE FALL RISK.] Future Scheduled Test PHYSICAL T HERAPIST TO EVALUATE FOR BALANCE AND STRENGTGENING [code = PHYSICAL THERAPIST TO EVALUATE FOR BALANCE AND STRENGTGENING] Future Scheduled Test OCCUPATION AL THERAPIST TO EVALUATE FOR SAFETY IN ADLS AND IDLS [code = OCCUPATIONAL THERAPIST TO EVALUATE FOR SAFETY IN ADLS AND IDLS] Future Scheduled Test VENIPUNCTU RE DIAGNOSTIC; SKILLED NURSE TO PERFORM VENIPUNCTURE ON 01/03/20 FOR N17.9 BMP ROUTINE FOR ACUTE KIDNEY FAILURE PREFERENCE IS [facility] FAX/CALL IN RESULTS TO DR ROGELIO DEMPSEY FAX [phone] [code = VENIPUNCTURE DIAGNOSTIC; SKILLED NURSE TO PERFORM VENIPUNCTURE ON 01/03/20 FOR N17.9 BMP ROUTINE FOR ACUTE KIDNEY FAILURE PREFERENCE IS [facility]/CALL IN RESULTS TO DR ROGELIO DEMPSEY FAX [phone]] Future Scheduled Test AGENCY MAY PERFORM A RESUMPTION OF CARE VISIT FOLLOWING ANY HOSPITAL ADMISSION. ALL DISCIPLINES (EXCEPT [facility]) MAY PROVIDE TELEHEALTH PHONE/REMOTE/VIRTUAL VISITS IN LIEU OF AN IN-PERSON VISIT THAT DOES NOT REQUIRE HANDS ON OR IN PERSON ASSESSMENT WHEN AN IN-PERSON VISIT IS NOT POSSIBLE DUE TO THE PUBLIC HEALTH EMERGENCY RELATED TO THE COVID-19 PANDEMIC. PHYSICAL THERAPY TO EVALUATE, ASSESS AND MONITOR, PROVIDE SKILLED THERAPEUTIC INTERVENTION, ACTIVITY, EDUCATION, AND TRAINING TO ADDRESS: BED MOBILITY TRAINING (PT); TRANSFER TRAINING (PT) GAIT TRAINING (PT) NEUROMUSCULAR RE-EDUCATION / BALANCE RETRAINING (PT) THERAPEUTIC EXERCISES (PT) OXYGEN SATURATION (PT). NOTIFY MD IF 02SATS BELOW 90% AFTER 10 MIN OF REST. PAIN MANAGEMENT (PT). PT WILL NOTIFY MD OF PAIN GREATER THAN 7/10, NOT RELIEVED BY CURRENT PAIN CONTROL METHODS. VERTEBRAL COMPRESSION FRACTURE SELF-MANAGEMENT (PT) [code = AGENCY MAY PERFORM A RESUMPTION OF CARE VISIT FOLLOWING ANY HOSPITAL ADMISSION. ALL DISCIPLINES (EXCEPT PLANNING ANALYST) MAY PROVIDE TELEHEALTH PHONE/REMOTE/VIRTUAL VISITS IN LIEU OF AN IN-PERSON VISIT THAT DOES NOT REQUIRE HANDS ON OR IN PERSON ASSESSMENT WHEN AN IN-PERSON VISIT IS NOT POSSIBLE DUE TO THE PUBLIC HEALTH EMERGENCY RELATED TO THE COVID-19 PANDEMIC. PHYSICAL THERAPY TO EVALUATE, ASSESS AND MONITOR, PROVIDE SKILLED THERAPEUTIC INTERVENTION, ACTIVITY, EDUCATION, AND TRAINING TO ADDRESS: BED MOBILITY TRAINING (PT); TRANSFER TRAINING (PT) GAIT TRAINING (PT) NEUROMUSCULAR RE-EDUCATION / BALANCE RETRAINING (PT) THERAPEUTIC EXERCISES (PT) OXYGEN SATURATION (PT). NOTIFY MD IF 02SATS BELOW 90% AFTER 10 MIN OF REST. PAIN MANAGEMENT (PT). PT WILL NOTIFY MD OF PAIN GREATER THAN 7/10, NOT RELIEVED BY CURRENT PAIN CONTROL METHODS. VERTEBRAL COMPRESSION FRACTURE SELF-MANAGEMENT (PT)] Goal 2020-02-26 Patient Goal - TO GET STRONG ER AT HOME Goal Provider Goal - A PLAN OF CARE WILL BE ESTABLISHED THAT MEETS THE PATIENT'S NURSING NEEDS BY 12/30/19 PATIENT WILL DEMONSTRATE OXYGEN SATURATION WITH NORMAL LIMITS OR TO PATIENT'S OPTIMAL LEVEL ESTABLISHED BY THE PHYSICIAN THROUGHOUT CARE Goal Provider Goal - PATIENT/CAREGIVER TO VERBALIZE, AND CONSISTENTLY DEMONSTRATE EFFECTIVE, SAFE MANAGEMENT OF MEDICATION INCLUDING KNOWLEDGE OF EFFECTIVENESS, POTENTIAL SIDE EFFECTS AND DRUG REACTIONS AND WHEN TO CONTACT THE APPROPRIATE CARE PROVIDER. PATIENT/CAREGIVER WILL BE ABLE TO VERBALIZE UNDERSTANDING OF MEDICATION REGIMEN AND ACCURATELY TAKE MEDICATIONS PRESCRIBED WITHOUT ADVERSE EFFECTS BY DISCHARGE Goal Provider Goal - INEFFECTIVE ANTICOAGULATION THERAPY WILL BE IDENTIFIED AND PROMPTLY REPORTED TO THE PHYSICIAN. PATIENT / CAREGIVER WILL VERBALIZE UNDERSTANDING OF MEASURES TO MAINTAIN EFFECTIVE ANTICOAGULATION THERAPY BY DISCHARGE Goal Provider Goal - PATIENT / CAREGIVER WILL VERBALIZE/DEMONSTRATE UNDERSTANDING OF MEASURES TO MANAGE ALTERED RESPIRATORY STATUS BY END OF EPISODE. Goal Provider Goal - PATIENT / CAREGIVER WILL VERBALIZE/DEMONSTRATE AN ABILITY TO ADHERE TO SELF-MANAGEMENT OF COPD TO MINIMIZE COMPLICATIONS AND AVOID HOSPITALIZATION BY END OF EPISODE. Goal Provider Goal - PATIENT/CAREGIVER WILL VERBALIZE/DEMONSTRATE UNDERSTANDING OF CARE AND MANAGEMENT OF OXYGEN THERAPY BY END OF EPISODE Goal Provider Goal - PATIENT / CAREGIVER WILL VERBALIZE / DEMONSTRATE UNDERSTANDING OF PAIN CONTROL MEASURES BY DISCHARGE Goal Provider Goal - PATIENT/CAREGIVER ABLE TO IDENTIFY FALL RISK FACTORS AND IMPLEMENT STRATEGIES TO MINIMIZE FALL RISK. PATIENT/CAREGIVER WILL VERBALIZE/DEMONSTRATE AN ABILITY TO ADHERE TO FALL REDUCTION SELF MANAGEMENT AND LIFE-STYLE CHANGES AT DISCHARGE. PERSONAL GOAL(S) STATED BY PATIENT/CAREGIVER WILL BE MET BY DISCHARGE Goal Provider Goal - PATIENT / CAREGIVER WILL VERBALIZE/DEMONSTRATE UNDERSTANDING OF PURPOSE OF VENIPUNCTURE AND LAB RESULTS WILL BE REPORTED TO PHYSICIAN WITH FOLLOW UP ORDERED BY DISCHARGE Goal Provider Goal - PT STG: PATIENT WILL VERBALIZE LOG ROLLING TECHNIQUES FOR GETTING IN/OUT OF BED WITHIN 2 WEEKS. PT LTG: PATIENT WILL DEMONSTRATE IMPROVED BED MOBILITY FROM UNABLE TO SUPERVISION WITHIN 9 WEEKS. PT LTG: PATIENT WILL DEMONSTRATE IMPROVED TRANSFERS FROM CGA, USING FWW, AND DIFFICULTY W/S OVER COG TO INDEP WITHOUT AD WITHIN 9 WEEKS. PT LTG: PATIENT WILL DEMONSTRATE IMPROVED AMBULATION FROM 60 FT WITH FWW, CGA, UNEVEN STEP LENGTH TO 250 FT, FWW, MODIFIED INDEP WITH NORMAL GAIT PATTERN, AND 50 FT UNLEVEL SURFACES WITH FWW WITHIN 9 WEEKS. PT LTG: PATIENT WILL DEMONSTRATE IMPROVED SAFETY NEGOTIATING STAIRS FROM MIN ASSIST TO INDEP WITH HANDRAIL WITHIN 9 WEEKS. PT LTG: PATIENT WILL DEMONSTRATE REDUCED FALL RISK EVIDENCED BY IMPROVED SELF- SELECTED WALKING SPEED (SSWS CUT SCORE 0.6 TO 0.9 INDICATES MODERATE FALL RISK, 0.6 M/S INDICATES HIGH FALL RISK) FROM 0.3 M/S TO 0.6 M/S WITHIN 9 WEEKS. PT LTG: PATIENT WILL DEMONSTRATE REDUCED FALL RISK EVIDENCED BY TINETTI SCORE IMPROVING FROM 10/28 TO 20/28 WITHIN 9 WEEKS. PT STG: PATIENT WILL BE INDEP WITH HEP WITHIN 2 WEEKS. PT LTG: PATIENT WILL DEMONSTRATE INCREASED STRENGTH OF BLE HIP FLEX/ABD, KNEE FLEX/EXT FROM 3+/5 TO 4+/5 WITHIN 9 WEEKS IN ORDER TO INCREASE SAFETY/INDEP WITH TRANSFERS/AMBULATION AND TO BE ABLE TO GO UP/DOWN STEPS SAFELY. PATIENT WILL MAINTAIN OXYGEN SATURATION WITHIN PHYSICIAN ORDERED PARAMETERS THROUGHOUT EPISODE OF CARE PT GOAL: PATIENT/CAREGIVER WILL VERBALIZE UNDERSTANDING OF PAIN MANAGEMENT BY DISCHARGE. PT GOAL: PATIENT WILL DEMONSTRATE OPTIMAL OUTCOMES INCLUDING DECREASED PAIN WITH NO COMPLICATIONS FOLLOWING VERTEBRAL COMPRESSION FRACTURE BY DISCHARGE. Reason for Visit INDEPENDENT WITH USE OF ASSISTIVE DEVICE Encounters Start Date/Time End Date/Time Encounter Type Admission Type Attending Clinicians Care Facility Care Department Encounter ID Discharge Date Discharge Status Discharge Condition Discharge Reason Percent Goals Met 2019-12-29 00:00:00 2020-02-26 00:00:00 Outpatient [facility] [id number] 2020-02-26 00:00:00 DISCHARGE TO HOME OR SELF CARE INDEPENDEN T WITH USE OF ASSISTIVE DEVICE HH OR PAL- GOALS MET 91.18
--- OUTSIDE RECORDS SUMMARY | 2024-05-24 23:22 | XMS_ITS | Encounter Summary ---
Author Organization [facility] Address [address] [place] [address] Phone Care Team Providers Care Rental Salesperson Name Role Phone Cleo Funk DO Primary Care Provider + Encounter Details Date Type Department Care Team (Late st Contact Info) Description 05/16/2024 Orders Only 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 Gender Identity Not on file Sexual Orientation Not on file documented as of this encounter Plan of Treatment Scheduled Orders Name Type Priority Associated Diagnoses Orde r Schedule XR Chest Pa Lateral 2 Views Imaging Schedule Routine, Read Routine (OP Routine) Chronic obstructive pulmonary disease, unspecified COPD type (HCC) 1 Occurrences starting 05/16/2024 until 11/14/2025 documented as of this encounter Visit Diagnoses Diagnosis Chronic obstructive pulmonary disease, unspecified COPD type (HCC)- Primary documented in this encounter Care Teams Rental Salesperson Relationship Specialty Start Date End Date Cleo Funk DO [facility] [facility] [address] [place] [id number] PCP - General Family Medicine 03/27/24 documented as of this encounter
--- OUTSIDE RECORDS SUMMARY | 2024-05-24 23:22 | XMS_ITS | Referral Summary ---
Author Organization [address] [facility] [address] [place] [address] Care Team Providers Care Purse Maker Name Role Phone Cleo Funk DO Primary Care Provider + Encounters Date Type Department Care Team Description 05/16/2024 Orders Only [facility] Pulmonary [address] [facility] 8th [place] [address] [place] [address] Puneet Powell MD Chronic obstructive pulmonary disease, unspecified COPD type (HCC) (Primary Dx) 04/10/[address] [facility] Cardiology [address] [facility] [address] [place] [address] Epi Lake MD 03/27/2024 1:45 PM CDT Office Visit [facility] Medical [facility] Cardiology [address] [place] [address] [address] [place] [address] Epi Lake MD Chronic atrial fibrillation (HCC) (Primary Dx) from Last 3 Months Allergies Active Allergy Reactions Criticality Noted Date Comments Levofloxacin Unknown 04/24/2019 red around the eyes , puffy, itchy Penicillins Scopolamine Other (See comments) Low 02/07/2019 delirium Tobramycin Swelling,Eye irritation Medium 10/23/2019 red around the eyes, puffy, itchy Medications acetaminophen (TYLENOL) 325 mg tablet Take 2 tablets (650 mg total) by mouth every 4 (four) hours as needed for pain Active apixaban (ELIQUIS) 5 mg tabletIndication s:atrial fibrillation,VTE Prophylaxis Take 1 tablet (5 mg total) by mouth 2 (two) times a day. 60 tablet 8 Active aspirin (ASPIRIN LOW DOSE) 81 mg tabletIndication s:Myocardial Reinfarction Prevention Take 1 tablet (81 mg total) by mouth daily. 30 tablet 8 Active bumetanide (BUMEX) 0.5 mg tablet Take 1 tablet (0.5 mg total) by mouth daily. 30 tablet 8 Active Additional Information Patient taking differently:0.5 mg oral2 times daily, Reported on 09/21/2022 tamsulosin (FLOMAX) 0.4 mg extended release capsule Take 1 capsule (0.4 mg total) by mouth nightly. 30 capsule 8 Active camphor-menthol (SARNA) lotion Apply topically as needed for itching. 222 mL 8 Active miconazole 2 % powder Apply topically 2 (two) times a day. 70 g 8 Active albuterol (PROVENTIL,ROSEMARIE DIVINA) 2.5 mg/0.5 mL solution for nebulizationIndi cations:Bronchos pasm Prevention Take 1 mL (5 mg total) by nebulization every 6 (six) hours as needed (resp failure). 25 each 8 Active baclofen (LIORESAL) 10 mg tablet Take 1 tablet (10 mg total) by mouth 3 (three) times a day with meals. 90 tablet 8 Active Additional Information Patient taking differently:10 mg oralDaily, Reported on 09/21/2022 oxygenIndication s:Dyspnea 1 L Active triamcinolone (KENALOG) 0.1 % cream APPLY A THIN LAYER TOPICALLY FOUR TIMES DAILY TO THE AFFECTED AREA 3 8 Active omeprazole (PriLOSEC) 40 mg capsule Take 1 capsule (40 mg total) by mouth daily Active doxycycline (VIBRAMYCIN) 100 mg capsule Take 1 tablet/capsule (100 mg total) by mouth daily Active benzonatate (TESSALON) 200 mg capsule Take 1 capsule (200 mg total) by mouth 3 (three) times a day as needed for cough Active Daliresp 500 mcg tablet 0 Active ferrous fumarate 325 mg (106 mg iron) tablet Take 1 tablet (325 mg total) by mouth daily with breakfast Active nystatin powder Apply topically 4 (four) times a day Active cetirizine (ZyrTEC) 10 mg tablet Take 1 tablet (10 mg total) by mouth daily Active metoprolol XL (TOPROL-XL) 50 mg extended release tablet Take 1 tablet (50 mg total) by mouth daily Active spironolactone (ALDACTONE) 25 mg tablet Take 0.5 tablets (12.5 mg total) by mouth daily 1 Active gabapentin (NEURONTIN) 100 mg capsule Take 3 capsules (300 mg total) by mouth 2 (two) times a day Active Breztri Aerosphere 160-9-4.8 mcg/actuation HFA aerosol inhaler INHALE 2 PUFFS BY MOUTH EVERY MORNING AND EVERY EVENING 2 Active FOLIC ACID ORAL Take 1 tablet by mouth daily 2 Active cholecalciferol 25 mcg (1,000 unit) tablet Take 1 tablet (1,000 Units total) by mouth daily Active magnesium oxide 400 mg magnesium capsule Take by mouth Active fluticasone propionate (FLONASE) 50 mcg/actuation nasal spray Administer 2 sprays into each nostril daily 4 Active mesalamine (ROWASA) 4 gram/60 mL enema INSERT 60MLS (4G) RECTALLY TWICE A DAY FOR 90 DAYS 4 Active vitamin B complex capsule Take 1 capsule by mouth daily Active acidophilus-pect in, citrus 100 million cell-10 mg capsule Take by mouth Activ e Active Problems Problem Noted Date Diagnosed Date Hyponatremia 10/27/2017 Assessment & Plan (11/07/2017 7:12 AM CDT): Hyponatremia, resolved. Suspect dilutional. Monitor renal function with diuresis. Still with some edema on exam. Former smoker 10/25/2017 Overview (10/25/2017): May meet eventual criteria for lung cancer screening. Assessment & Plan (10/25/2017 9:09 AM CDT): May meet criteria for lung cancer screen COPD (chronic obstructive pulmonary disease) Overview (10/25/2017): Continue inhaled bronchodilator therapy. Pulmonary function testing when stable Assessment & Plan (11/05/2017 6:41 AM CDT): Pulmonary function testing when stable. Continue inhaled bronchodilator therapy. Lungs are clear Hypercapnic respiratory failure ([facility]/HCC) 2017 Overview (10/25/2017): Tracheostomy successfully D cannulated. FiO2 to maintain a saturation 90%. Continue BiPAP at night. Assessment & Plan (11/05/2017 6:41 AM CDT): Successfully decannulated. Comfortable on room air. Doing well without BiPAP Diskitis 10/25/2017 Overview (10/25/2017): Debridement, completed antibiotic therapy for diskitis prior to his admission to [facility] Assessment & Plan (11/05/2017 6:40 AM CDT): Completed debridement, prolonged antibiotic therapy for an L1 diskitis. Continue physical therapy, pain control Pneumonia 10/25/2017 Assessment & Plan (11/09/2017 8:10 AM CDT): Completed treatment for pneumonia, empyema prior to transfer to [facility]. Finished Bactrim for stenotrophomonas pneumonia here. Continue to observe off antibiotics. Chronic atrial fibrillation 02/22/2017 Assessment & Plan (11/09/2017 8:12 AM CDT): Normal sinus rhythm by exam. Monitor for bleeding ( had bleeding around his tracheostomy, skin tears while at [facility]). 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 Gender Identity Not on file Sexual Orientation Not on file Last Filed Vital Signs Vital Sign Reading Time Taken Comments Blood Pressure 106/52 03/27/2024 1:37 PM CDT Pulse 70 03/27/2024 1:37 PM CDT Temperature 36.3 ??C (97.4 ??F) 2017 3:50 AM CD T Respiratory Rate 16 2017 3:50 AM CDT Oxygen Saturation 98% 03/27/2024 1:37 PM CDT with oxygen Inhaled Oxygen Concentration - - Weight 112 kg (247 lb) 03/27/2024 1:37 PM CDT pe r pt Height 180.3 cm (5' 11 ) 03/27/2024 1:37 PM CDT Body Mass Index 34.45 03/27/2024 1:37 PM CDT Plan of Treatment Not on file Insurance [facility] MEDICARE AETNA MEDICARE AETNA MEDICARE Advance Directives For more information, please contact: [phone] * Full Code (Latest Code Status on File) Date Activated Date Inactivated Comments 10/24/2017 8:34 PM 2017 4:37 PM Care Teams Purse Maker Relationship Specialty Start Date End Date Cleo Funk DO [facility] [facility] [place] [address] PCP - General Family Medicine 03/27/24
--- OUTSIDE RECORDS SUMMARY | 2024-05-24 23:22 | XMS_ITS | Encounter Summary ---
Author Organization [facility] Address [address] [facility] [address] [place] [address] Care Team Providers Care Research Associate Name Role Phone Napoleon Birmingham MD Primary Care Provider [phone] Encounter Details Date Type Department Care Team (Late st Contact Info) Description 07/22/[address] 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 Gender Identity Not on file Sexual Orientation Not on file documented as of this encounter Plan of Treatment Not on file documented as of this encounter Procedures Procedure Name Priority Date/Time Associated Diagnosis Comments CARDIOLOGY DOCUMENT SCAN Routine 07/22/2022 documented in this encounter Results * Cardiology Document Scan (07/22/2022) Anatomical Region Laterality Modality Other Chang Costello MD CV CARDIAC SERVICES PRO CEDURES Final Result documented in this encounter Visit Diagnoses Not on filedocumented in this encounter Care Teams Research Associate Relationship Specialty Start Date End Date Napoleon Birmingham MD PCP - General Family Medicine 03/25/22 03/26/24 documented as of this encounter
--- OUTSIDE RECORDS SUMMARY | 2024-05-24 23:22 | XMS_ITS | Encounter Summary ---
Author Organization [facility] Address [address] [place] [address] Care Team Providers Care Rubber Flap Tuber Machine Operator Name Role Phone Cleo Funk Primary Care Provider + Encounter Details Date Type Department Care Team (Late st Contact Info) Description 04/10/2024 Telephone [facility] Cardiology [address] [facility] 162 [facility] [address] [place] [address] Epi Lake MD [address] [facility] [address] [place] [address] Social History Tobacco Use Types Packs/Day Years Used Date Smoking Tobacco: Former Cigarettes Q uit: 1982 Smokeless Tobacco: Never Alcohol Use Standard Drinks/Week Comments No 0 (1 standard drink = 0.6 oz pur e alcohol) Sex and Gender Information Value Date Recorded Sex Assigned at Not on file 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 Y DRIER OPERATOR HELPER * Telephone Encounter - Maida Lepe - 04/10/2024 3:12 PM CST Isabell called from Dr. Brown office states [facility] did not check maicol on the medication hold. Requesting that be addressed and re faxed. Thank you. Contact: Y DRIER OPERATOR HELPER documented in this encounter Plan of Treatment Not on file documented as of this encounter Visit Diagnoses Not on filedocumented in this encounter Care Teams Rubber Flap Tuber Machine Operator Relationship Specialty Start Date End Date Cleo Funk DO [facility] [facility] [address] [place] [address], [place] [address] PCP - General Family Medicine 03/27/24 documented as of this encounter
--- OUTSIDE RECORDS SUMMARY | 2024-05-24 23:22 | XMS_ITS | Clinical Summary ---
Author Organization [facility] [address] Address [address] [place] [address] Care Team Providers Care Cyber Special Agent Name Role Phone Cleo Funk DO Primary Care Provider + Allergies Active Allergy Reactions Criticality Noted Date [...] therapy. Lungs are clear Hypercapnic respiratory failure (CMS/HCC) 2017 Overview (10/25/2017): Tracheostomy successfully D cannulated. FiO2 to maintain a saturation 90%. Continue BiPAP at night. Assessment & Plan (11/05/2017 6:41 AM CDT): Successfully decannulated. Comfortable on room air. Doing well without BiPAP Diskitis 10/25/2017 Overview (10/25/2017): Debridement, completed antibiotic therapy for diskitis prior to his admission to [facility] Assessment & Plan (11/05/2017 6:40 AM CDT): Completed debridement, prolonged antibiotic therapy for an L1 diskitis. Continue physical therapy, pain control Pneumonia 10/25/2017 Assessment & Plan (11/09/2017 8:10 AM CDT): Completed treatment for pneumonia, empyema prior to transfer to [facility]. Finished Bactrim for stenotrophomonas pneumonia here. Continue to observe off antibiotics. Chronic atrial fibrillation 02/22/2017 Assessment & Plan (11/09/2017 8:12 AM CDT): Normal sinus rhythm by exam. Monitor for bleeding ( had bleeding around his tracheostomy, skin tears while at [facility]). Continue amiodarone, aspirin, Lipitor, metoprolol, apixaban Encounters Date Type Department Care Team Description 05/16/2024 Orders Only [facility] Pulmonary [address] [facility] Advanced Medicine 8th [place] [address] [place] [address] Puneet Powell MD Chronic obstructive pulmonary disease, unspecified COPD type (HCC) (Primary Dx) 04/10/2024 Telephone [facility] Cardiology [address] [place] [address] Epi Lake MD 03/27/2024 1:45 PM CDT Office Visit [facility] Cardiology [address] [place] [address] Epi Lake MD Chronic atrial fibrillation (HCC) (Primary Dx) from Last 3 Months Surgical History Surgery Date Site/Laterality Comments BACK SURGERY TRACHEOSTOMY TOTAL HIP ARTHROPLASTY Bilateral Medical History Medical History Date Comments Hx Other Medical DJD Chronic obstructive pulmonary disease (HCC) COPD Hypertension Diabetes mellitus (HCC) Coronary artery disease A-fib (CMS/HCC) (HCC) A-fib (CMS/HCC) (HCC) history Family History Relation Name Status Comments Father Mother Social History Tobacco Use Types Packs/Day Years Used Date Smoking Tobacco: Former Cigarettes Q uit: 1982 Smokeless Tobacco: Never Tobacco Cessation:Counseling Given: Not Answered Alcohol Use Standard Drinks/Week Comments No 0 (1 standard drink = 0.6 oz pur e alcohol) Sex and Gender Information Value Date Recorded Sex Assigned at Not on file 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 Gender Identity Not on file Sexual Orientation Not on file Obstetrics History Last Filed Vital Signs Vital Sign Reading Time Taken Comments Blood Pressure 106/52 03/27/2024 1:37 PM CDT Pulse 70 03/27/2024 1:37 PM CDT Temperature 36.3 ??C (97.4 ??F) 2017 3:50 AM CD T Respiratory Rate 16 2017 3:50 AM CDT Oxygen Saturation 98% 03/27/2024 1:37 PM CDT with oxygen Inhaled Oxygen Concentration - - Weight 112 kg (247 lb) 03/27/2024 1:37 PM CDT p er pt Height 180.3 cm (5' 11 ) 03/27/2024 1:37 PM CDT Body Mass Index 34.45 03/27/2024 1:37 PM CDT Plan of Treatment Health Maintenance Due Date Last Done Comments Colon Cancer Screening-Colonoscopy 1948 Depression Screening 1948 Fall Risk Assessment 1950 Hepatitis C Screening 1950 Hepatitis B Screening 1966 Well Visit 65+ 2013 Covid-19 Vaccine (5 - 2023-2 5 season) 2024 07/21/2022, 03/15/2021, 07/16/2020, Additional history exists Influenza Vaccine (#1) 2024 , 03/15/2021, 03/11/2020, Additional history exists DTaP/Tdap/Td Vaccine (3 - Td or Tdap) 07/21/2032 07/21/2022, 06/06/2009 Pneumococcal vaccine 65+ Completed 06/29/2016, 06/2014 Zoster Vaccine Completed 04/23/2021, 01/04, 05/01/2013 Abdominal Aortic Aneurysm (A AA) Screen Completed 10/16/2023, 08/26/2017, 08/09/2017, Additional history exists Insurance AETNA MEDICARE AETNA MEDICARE [facility] MEDICARE Advance Directives For more information, please contact: [phone] * Full Code (Latest Code Status on File) Date Activated Date Inactivated Comments 10/24/2017 8:34 PM 2017 4:37 PM Care Teams Cyber Special Agent Relationship Specialty Start Date End Date Cleo Funk DO [facility]7 [facility] [address] [address] PCP - General Family Medicine 03/27/24
--- OUTSIDE RECORDS SUMMARY | 2024-05-24 23:22 | XMS_ITS | Encounter Summary ---
Author Organization [facility] Address [address] [place] [address] Care Team Providers Care Real Time Operator Name Role Phone Briana Medeiros MD Primary Care Provider [phone] Reason for Visit * Reason Comments Atrial Fibrillation 6 month fu Encounter Details Date Type Department Care Team (Late st Contact Info) Description 09/24/2021 10:45 AM CDT Office Visit [facility] Cardiology [address] [facility] [address] [place] [address] Epi Lake MD [address] [facility] [address] [place] [address] Chronic atrial fibrillation (HCC) (Primary Dx) Social History Tobacco Use Types Packs/Day Years Used Date Smoking Tobacco: Former Cigarettes Q uit: 1982 Smokeless Tobacco: Never Alcohol Use Standard Drinks/Week Comments No 0 (1 standard drink = 0.6 oz pur e alcohol) Sex and Gender Information Value Date Recorded Sex Assigned at Not on file 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 Gender Identity Not on file Sexual Orientation Not on file documented as of this encounter Last Filed Vital Signs Vital Sign Reading Time Taken Comments Blood Pressure 92/52 09/24/2021 10:46 AM CDT Pulse 84 09/24/2021 10:46 AM CDT Temperature - - Respiratory Rate - - Oxygen Saturation 96% 09/24/2021 10:46 AM CDT Inhaled Oxygen Concentration - - Weight 115.2 kg (254 lb) 09/24/2021 10:46 AM CDT Height 180.3 cm (5' 11 ) 09/24/2021 10:46 AM CDT Body Mass Index 35.43 09/24/2021 10:46 AM CDT documented in this encounter Progress Notes * Epi Lake MD - 09/24/2021 10:45 AM CDT [facility] FOLLOW [facility] 09/24/2021 Mason Keys is a 70 y.o. male who presents for follow up [...] the ventilator support. Physicians at the [facility] had placed him on amiodarone for simple rate control. After I saw the patient in follow-up in February of 2018 I transitioned him back to standard beta-fe treatment because the erisa attorney at the [facility] did not want him on the amiodarone which is not a drug that I started in the 1st place. He c ontinues to take antibiotics for treatment of chronic vertebral infection. He does have chronic symptoms of exertional dyspnea which I have attributed to both his atrial fibrillation and obesity. He returns to the office today for a six-month office visit. He is doing well with respect to his atrial fibrillation and does not describe any new symptomatology. He is mostly concerned about his because she now has a significant cardiomyopathy and has a LifeVest device. REVIEW OF SYSTEMS General ROS: negative for [...] ??? acetaminophen (TYLENOL) 325 mg tablet, Take 650 mg by mouth every 4 (four) hours as needed for pain., Disp: , Rfl: ??? apixaban (ELIQUIS) 5 mg tablet, Take 1 tablet (5 mg total) by mouth 2 (two) times a day., Disp:60 tablet, Rfl: 0 ??? ascorbic acid (VITAMIN C) 500 mg tablet,chewable, Take 500 mg by mouth daily., Disp: , Rfl: ??? aspirin (ASPIRIN LOW DOSE) 81 mg tablet, Take 1 tablet (81 mg total) by mouth daily., Disp: 30 tablet, Rfl: 0 ??? baclofen (LIORESAL) 10 mg tablet, Take 1 tablet (10 mg total) by mouth 3 (three) times a day with meals. (Patient taking differently: Take 10 mg by mouth daily), Disp: 90 tablet, Rfl: 0 ??? benzonatate (TESSALON) 200 mg capsule, Take 200 mg by mouth 3 (three) times a day as needed forcough, Disp: , Rfl: ??? Breztri Aerosphere 160-9-4.8 mcg/actuation HFA aerosol inhaler, INHALE 2 PUFFS BY MOUTH EVERY MORNING AND EVERY EVENING, Disp: , Rfl: ??? bumetanide (BUMEX) 0.5 mg tablet, Take 1 tablet (0.5 mg total) by mouth daily. (Patient taking differently: Take 0.5 mg by mouth 2 (two) times a day), Disp: 30 tablet, Rfl: 0 ??? cetirizine (ZyrTEC) 10 mg tablet, Take 10 mg by mouth daily, Disp: , Rfl: ??? cyanocobalamin, vitamin B-12, 500 mcg lozenge, Take by mouth., Disp: , Rfl: ??? Daliresp 500 mcg tablet, , Disp: , Rfl: ??? diphenhydrAMINE (BENADRYL) 25 mg capsule, Take 25 mg by mouth 2 (two) times a day., Disp: , Rfl: ??? doxycycline (VIBRAMYCIN) 100 mg capsule, Take 100 mg by mouth daily, Disp: , Rfl: ??? ergocalciferol (VITAMIN D) 50,000 unit capsule, Take 1 capsule by mouth once a week., Disp: , Rfl: 0 ??? ferrous fumarate 325 mg (106 mg iron) tablet, Take 106 mg of elemental iron by mouth 2 (two) times a day, Disp: , Rfl: ??? metoprolol XL (TOPROL-XL) 50 mg extended release tablet, Take 50 mg by mouth daily, Disp: , Rfl: ??? miconazole 2 % powder, Apply topically 2 (two) times a day., Disp: 70 g, Rfl: 0 ??? nystatin powder, Apply topically 4 (four) times a day, Disp: , Rfl: ??? omeprazole (PriLOSEC) 40 mg capsule, Take 40 mg by mouth daily., Disp: , Rfl: ??? oxygen, 1 L., Disp: , Rfl: ??? potassium chloride (KLOR-CON) 20 mEq packet, Take 20 mEq by mouth daily , Disp: , Rfl: ??? spironolactone (ALDACTONE) 25 mg tablet, Take 25 mg by mouth daily, Disp: , Rfl: ??? tamsulosin (FLOMAX) 0.4 mg extended release capsule, Take 1 capsule (0.4 mg total) by mouth nightly., Disp: 30 capsule, Rfl: 0 ??? triamcinolone (KENALOG) 0.1 % cream, APPLY A THIN LAYER TOPICALLY FOUR TIMES DAILY TO THE AFFECTED AREA, Disp: , Rfl: 3 ??? albuterol (PROVENTIL,VENTOLIN) 2.5 mg/0.5 mL solution for nebulization, Take 1 mL (5 mg total) by nebulization every 6 (six) hours as needed (resp failure)., Disp: 25 each, Rfl: 0 ??? camphor-menthol (SARNA) lotion, Apply topically as needed for itching. (Patient not taking: Reported on 09/24/2021), Disp: 222 mL, Rfl: 0 ??? DULoxetine DR (CYMBALTA) 30 mg capsule, Take by mouth daily (Patient not taking: Reported on 09/24/2021), Disp: , Rfl: ??? gabapentin (NEURONTIN) 100 mg capsule, Take 100 mg by mouth nightly, Disp: , Rfl: ??? polyethylene glycol (MIRALAX) 17 gram packet, Take 17 g by mouth 2 (two) times a day as needed (constipation). (Patient not taking: Reported on 09/24/2021), Disp: 15 packet, Rfl: 0 LABS AND OTHER DIAGNOSTIC TESTS No results found for: CHOL No results found for: HDL No results found for: LDLCALC No results found for: TRIG No results found for: CHOLHDL Lab Results Component Value Date WBC 7.8 03/22/2019 HGB 8.4 (L) 03/22/2019 HCT 30.0 (L) 03/22/2019 MCV 92.3 03/22/2019 No lab exists for component: LABALBU PHYSICAL EXAM Vitals BP 92/52 (BP Location: Left arm, Patient Position: Sitting) Pulse 84 Ht 180.3 cm (5' 11 ) Wt 115.2 kg (254 lb) SpO2 96% BMI 35.43 kg/m?? Physical Examination: General appearance [...] Discontinue Reason Start Date End Da te budesonide-formoterol (SYMBICORT) 80-4.5 mcg/actuation inhalerIndications:Bro nchospasm Prevention with COPD Inhale 1 puff 2 (two) times a day. Rinse mouth with water after use to reduce aftertaste and incidence of candidiasis. Do not swallow. 11/09/2017 09/24/2021 tiotropium bromide (SPIRIVA RESPIMAT) 2.5 mcg/actuation inhaler Inhale 09/24/2021 documented as of this encounter Historical Medications * This list may reflect changes made after this encounter. Jung Hua 160-9-4.8 mcg/actuation HFA aerosol inhaler INHALE 2 PUFFS BY MOUTH EVERY MORNING AND EVERY EVENING 09/01/2021 gabapentin (NEURONTIN) 100 mg capsule Take 3 capsules (300 mg total) by mouth 2 (two) times a day added in this encounter Care Teams Real Time Operator Relationship Specialty Start Date End Date Briana Medeiros MD [address] [place] [address] PCP - General 07/06/12 03/24/22 documented as of this encounter
--- OUTSIDE RECORDS SUMMARY | 2024-05-24 23:22 | XMS_ITS | Encounter Summary ---
Author Organization [facility] Address [address] [place] [id number] Care Team Providers Care Manager Audio Name Role Phone Briana Medeiros MD Primary Care Provider [phone] Reason for Visit * Reason Comments Follow-up 7 mo f/u Atrial Fibrillation Encounter Details Date Type Department Care Team (Late st Contact Info) Description 03/19/2021 10:15 AM CDT Office Visit [facility] Cardiology [address] [facility] [address] [place] [address] Epi Lake MD [address] [facility] [address] [place] [address] Chronic atrial fibrillation (HCC) (Primary Dx); Chronic bronchitis, unspecified chronic bronchitis type (HCC); Lipid screening Social History Tobacco Use Types Packs/Day Years Used Date Smoking Tobacco: Former Cigarettes Q uit: 1982 Smokeless Tobacco: Never Alcohol Use Standard Drinks/Week Comments No 0 (1 standard drink = 0.6 oz pur e alcohol) Sex and Gender Information Value Date Recorded Sex Assigned at Not on file 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 Gender Identity Not on file Sexual Orientation Not on file documented as of this encounter Last Filed Vital Signs Vital Sign Reading Time Taken Comments Blood Pressure 104/60 03/19/2021 10:32 AM CDT Pulse 84 03/19/2021 10:32 AM CDT Temperature - - Respiratory Rate - - Oxygen Saturation 97% 03/19/2021 10: 32 AM CDT Inhaled Oxygen Concentration - - Weight 119.8 kg (264 lb 3.2 oz) 021 10:32 AM CDT Height 180.3 cm (5' 11 ) 03/19/2021 10: 32 AM CDT Body Mass Index 36.85 03/19/2021 10:32 AM CDT documented in this encounter Progress Notes * Epi Lake MD - 03/19/2021 10:15 AM CDT [facility] 03/19/2021 Mason Keys is a 70 y.o. male [...] off the ventilator support. Physicians at the [facility] had placed him on amiodarone for simple rate control. After I saw the patient in follow-up in February of 2018 I transitioned him back to standard beta-fe treatment because the tipple supervisor at the [facility] did not want him on the amiodarone which is not a drug that I started in the 1st place. He c ontinues to take antibiotics for treatment of chronic vertebral infection Patient presents today to the office for a six-month office schedule appointment. He returns to theoffice today without any symptoms that are new. With sustained walking he does have fatigue and lack of energy his was asking about that I told her this is not uncommon in someone with chronic atrial fibrillation. Of course he is also significantly obese in that I am sure that contributes to this as well REVIEW OF SYSTEMS General ROS: negative for [...] needed for pain., Disp: , Rfl: ??? albuterol (PROVENTIL,VENTOLIN) 2.5 mg/0.5 mL solution for nebulization, Take 1 mL (5 mg total) by nebulization every 6 (six) hours as needed (resp failure)., Disp: 25 each, Rfl: 0 ??? apixaban (ELIQUIS) 5 mg tablet, Take 1 tablet (5 mg total) by mouth 2 (two) times a day., Disp:60 tablet, Rfl: 0 ??? ascorbic acid (ascorbic acid with mark hips) 500 mg tablet,chewable, Take 500 mg by mouth daily., Disp: , Rfl: ??? aspirin (ASPIRIN LOW DOSE) 81 mg tablet, Take 1 tablet (81 mg total) by mouth daily., Disp: 30 tablet, Rfl: 0 ??? baclofen (LIORESAL) 10 mg tablet, Take 1 tablet (10 mg total) by mouth 3 (three) times a day with meals. (Patient taking differently: Take 10 mg by mouth daily ), Disp: 90 tablet, Rfl: 0 ??? budesonide-formoterol (SYMBICORT) 80-4.5 mcg/actuation inhaler, Inhale 1 puff 2 (two) times a day. Rinse mouth with water after use to reduce aftertaste and incidence of candidiasis. Do not swallow., Disp: 1 Inhaler, Rfl: 0 ??? bumetanide (BUMEX) 0.5 mg tablet, Take 1 tablet (0.5 mg total) by mouth daily. (Patient taking differently: Take 0.5 mg by mouth 2 (two) times a day ), Disp: 30 tablet, Rfl: 0 ??? camphor-menthol [...] oxygen, 1 L., Disp: , Rfl: ??? polyethylene glycol (MIRALAX) [...] nightly., Disp: 30 capsule, Rfl: 0 ??? tiotropium bromide (SPIRIVA RESPIMAT) 2.5 mcg/actuation inhaler, Inhale, Disp: , Rfl: ??? triamcinolone (KENALOG) 0.1 % cream, APPLY A THIN LAYER TOPICALLY FOUR TIMES DAILY TO THE AFFECTED AREA, Disp: , Rfl: 3 ??? benzonatate (TESSALON) 200 mg capsule, Take 200 mg by mouth 3 (three) times a day as needed forcough (Patient not taking: Reported on 03/19/2021), Disp: , Rfl: LABS AND OTHER DIAGNOSTIC [...] Ht 180.3 cm (5' 11 ) Wt 119.8 kg (264 lb 3.2 oz) SpO2 97% BMI 36.85 kg/m?? Physical Examination: General appearance - alert, [...] for this visit: Chronic atrial fibrillation (HCC) Chronic bronchitis, unspecified chronic bronchitis type (HCC) PLAN/RECOMMENDATIONS Continue current rate control and anticoagulation regimen and will continue to see him at 6 month intervals. Continue with the plan for six-month surveillance office visits Epi Lake MD documented in this encounter Miscellaneous Notes * Addendum Note - Andrea Bray MA - 03/19/2021 10:15 AM CDTAddended by: ANDREA BRAY on: 03/19/2021 11:07 AM Modules accepted: Orders documented in this encounter Plan of Treatment Not on file documented as of this encounter Procedures Procedure Name Priority Date/Time Associated Diagnosis Comments POCT LIPID PANEL Routine 03/19/2021 11:0 6 AM CDT Lipid screening documented in this encounter Results * POCT lipid panel (03/19/2021 11:06 AM CDT) Cholesterol, POC 141 mg/dL Comment:GLU = 113 HDL, POC 45 mg/dL Triglycerides, POC 485 mg/dL LDL Cholesterol POC N/A mg/dL Chol/HDL Ratio, POC 3.1 Non-HDL Cholesterol, POC 96 mg/dL Cholesterol Total, POC 141 mg/dL Capillary blood 03/19/2021 1 1:06 AM CDT us Epi Lake MD POINT OF CARE TEST ORDER K[place] Final Result documented in this encounter Visit Diagnoses Diagnosis Chronic atrial fibrillation (HCC)- Primary Atrial fibrillation Chronic bronchitis, unspecified chronic bronchitis type (HCC) Lipid screening Screening for lipoid disorders documented in this encounter Historical Medications * This list may reflect changes made after this encounter. spironolactone (ALDACTONE) 25 mg tablet Take 0.5 tablets (12.5 mg total) by mouth daily 01/27/2021 added in this encounter Care Teams Manager Audio Relationship Specialty Start Date End Date Briana Medeiros MD [address] [place] [address] PCP - General 07/06/12 03/24/22 documented as of this encounter
--- OUTSIDE RECORDS SUMMARY | 2024-05-24 23:23 | XMS_ITS | Encounter Summary ---
Author Organization [facility] Address [address] [facility] [address] [place] [address] Care Team Providers Care Midwife Name Role Phone Briana Medeiros MD Primary Care Provider [phone] Reason for Visit * Reason Comments Follow-up No problems Encounter Details Date Type Department Care Team (Late st Contact Info) Description 03/13/2018 2:00 PM CDT Office Visit [facility] [address] [address] Bruna Grant NP [address] [facility] [address] [facility] [address] [place] [address] Chronic atrial fibrillation (CMS/HCC) (Primary Dx); Chronic anticoagulation; Lipid screening Social History Tobacco Use Types Packs/Day Years Used Date Smoking Tobacco: Former Smokeless Tobacco: Never Tobacco Cessation:Counseling Given: Yes Alcohol Use Standard Drinks/Week Comments No 0 (1 standard drink = 0.6 oz pur e alcohol) Sex and Gender Information Value Date Recorded Sex Assigned at Not on file 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 Gender Identity Not on file Sexual Orientation Not on file documented as of this encounter Last Filed Vital Signs Vital Sign Reading Time Taken Comments Blood Pressure 94/68 03/13/2018 2:03 PM CDT Pulse 99 03/13/2018 2:03 PM CDT Temperature - - Respiratory Rate - - Oxygen Saturation 92% 03/13/2018 2:03 PM CDT Inhaled Oxygen Concentration - - Weight 91.6 kg (202 lb) 03/13/2018 2:03 PM CDT Height 180.3 cm (5' 11 ) 03/13/2018 2:03 PM CDT Body Mass Index 28.17 03/13/2018 2:03 PM CDT documented in this encounter Progress Notes * Bruna Grant NP - 03/13/2018 2:00 PM CDT [facility] Date of Visit: 03/13/2018 Patient ID: Mason Keys [id number] Chief Complaint: Mason Keys is a 67 y.o. male who is an established patient of Dr. Lake here for follow-up of his AFib. History of Present Illness: Mason Keys is a 67 y.o. male who presents for follow up of chronic atrial fibrillation. This lisa patient who was initially treated in the past with anti rhythmic therapy with sotalol and was maintaining sinus rhythm. Back in 2015 he lapsed into asymptomatic atrial fibrillation which was therefore recommended as his chronic rhythm and he has been seen since then in follow-up. His last appointment with me was 1 year ago. 02/21/2018 office visit: The patient did have an echocardiogram done in June at the request of 1of the hospitalists which demonstrated normal left ventricular systolic function, no significant valvular abnormality he had modest aortic and mitral insufficiency. The patient has not been seen in my office in a year since his last appointment. Since then he has been in the hospital for most of the last 9 months he was at [facility] it sounds like 3 or 4 times transferred to chronic ventilator for 70s several times both at [place] and subsequently out at [facility]. 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 At no time was there any new cardiac problem identified he is in atrial fibrillation chronically. An esophageal echo was done at [facility] that did not show any evidence of infectious vegetations on any of his cardiac valves. Somewhat surprisingly and a slightly inappropriately the the patient's indicates that the hepatology specialist at [facility] wants my opinion as to why the patient is taking amiodarone because he was found to have liver disease while he is there and they would like himon an alternative medication for heart rate control. I did share with the patient and his thatI did not prescribe the amiodarone and that I rarely use this drug simply for heart rate control. Obviously he was in the hospital there for a long time and presumably the physicians at that [facility] made the decision to use amiodarone for rate control he is currently taking it at 400 mg per day. I would recommend stopping this and replacing it with standard beta-fe which was used in the past with which he had good success. It would help dramatically of we had more feedback or involvement from the physicians at the [facility] where he received all this care so we could make these decisions in a more informed fashion. I did however review with them the long standing risks and long-term toxicities of chronic amiodarone exposure which I would like to avoid. 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 He has no complaints or concerns. He is tolerating anticoagulation Eliquis. His states he usually takes a nap in the afternoon, about this time, so he is feeling very sleepy. She reports blood pressure checks home being systolic 120s and diastolic 70-80, with heart rate 78-85 b.p.m. Records that I personally reviewed on the day of this visit include: (the interpretation is outlined in the chief complaint above) 02/21/[address] Lake I have also reviewed: allergies, current medications, past family history, past medical history, past social history, past surgical history and problem list Review of Systems Constitution: Negative for diaphoresis, fever, malaise/fatigue, weight gain and weight loss. HENT: Negative for hearing loss. Eyes: Positive for visual disturbance. Cardiovascular: Negative for chest pain, claudication, dyspnea on exertion, leg swelling, orthopnea, palpitations, paroxysmal nocturnal dyspnea and syncope. Respiratory: Negative for cough, hemoptysis, shortness of breath, snoring and wheezing. Hematologic/Lymphatic: Does not bruise/bleed easily. Skin: Negative for poor wound healing and rash. No easy bruising. No bleeding problems. Musculoskeletal: Negative for joint pain and myalgias. Gastrointestinal: Negative for heartburn, nausea and vomiting. No reflux Genitourinary: Negative for hematuria. Neurological: Negative for dizziness, headaches and light-headedness. Psychiatric/Behavioral: Negative for depression. The patient is not nervous/anxious. Vital Signs: BP 94/68 (BP Location: Left arm, Patient Position: Sitting) Pulse 99 Ht 180.3 cm (5' 11 ) Wt 91.6 kg (202 lb) SpO2 92% BMI 28.17 kg/m?? Physical Exam Constitutional: He is oriented to person, place, and time. He appears well- developed. He appears ill. No distress. Seated in wheelchair HENT: Head: Normocephalic and atraumatic. Eyes: Pupils are equal, round, and reactive to light. Conjunctivae and EOM are normal. No scleral icterus. Neck: Normal range of motion. No JVD present. No tracheal deviation present. Cardiovascular: Normal rate and normal heart sounds. An irregular rhythm present. No murmur heard. Apical heart rate auscultated at 88 bpm Pulmonary/Chest: Effort normal. No respiratory distress. He has decreased breath sounds. Wearing oxygen via nasal cannula. Abdominal: Soft. Bowel sounds are normal. There is no tenderness. Musculoskeletal: Normal range of motion. He exhibits no edema. Neurological: He is alert and oriented to person, place, and time. Skin: Skin is warm and dry. Psychiatric: He has a normal mood and affect. Allergies Allergen Reactions ??? Penicillins Current Outpatient Prescriptions: ??? acetaminophen (TYLENOL) 325 mg tablet, Take [...] daily., Disp: 30 tablet, Rfl: 0 ??? atorvastatin (LIPITOR) 20 mg tablet, Take 1 tablet (20 mg total) by mouth daily., Disp: 30 tablet, Rfl: 0 ??? baclofen (LIORESAL) 10 mg tablet, Take 1 tablet (10 mg total) by mouth 3 (three) times a day with meals., Disp: 90 tablet, Rfl: 0 ??? budesonide-formoterol (SYMBICORT) 80-4.5 mcg/actuation inhaler, Inhale 1 puff 2 (two) times a day. Rinse mouth with water after use to reduce aftertaste and incidence of candidiasis. Do not swallow., Disp: 1 Inhaler, Rfl: 0 ??? bumetanide (BUMEX) 0.5 mg tablet, Take 1 tablet (0.5 mg total) by mouth daily. (Patient taking differently: Take 0.5 mg by mouth daily. Take 1 mg in morning and 0.5mg at night ), Disp: 30 tablet,Rfl: 0 ??? camphor-menthol (SARNA) lotion, Apply topically as needed for itching., Disp: 222 mL, Rfl: 0 ??? chlorhexidine (PERIDEX) 0.12 % solution, Apply 5 mL to the mouth or throat 2 (two) times a day., Disp: 120 mL, Rfl: 0 ??? cyanocobalamin, vitamin B-12, 500 mcg lozenge, Take by mouth., Disp: , Rfl: ??? diphenhydrAMINE (BENADRYL) 25 mg capsule, Take 25 mg by mouth 2 (two) times a day., Disp: , Rfl: ??? docusate (COLACE) liquid 50 mg/5 mL, Take 100 mg by mouth., Disp: , Rfl: ??? ergocalciferol (VITAMIN D) 50,000 unit capsule, Take 1 capsule by mouth once a week., Disp: , Rfl: 0 ? ? lidocaine (LIDODERM) 5 %, Apply 1 patch topically daily. Remove & discard patch within 12 hours or as directed by MD., Disp: 15 patch, Rfl: 0 ??? metoprolol XL (TOPROL-XL) 50 mg 24 hr tablet, Take 1 tablet (50 mg total) by mouth daily., Disp: 30 tablet, Rfl: 11 ??? miconazole 2 % powder, Apply topically 2 (two) times a day., Disp: 70 g, Rfl: 0 ??? omeprazole (PriLOSEC) 40 mg capsule, Take 40 mg by mouth daily., Disp: , Rfl: ??? ondansetron (ZOFRAN) 4 mg tablet, as needed., Disp: , Rfl: 3 ??? oxyCODONE (ROXICODONE) 5 mg immediate release tablet, Take 1 tablet (5 mg total) by mouth every4 (four) hours as needed for pain., Disp: 30 tablet, Rfl: 0 ??? oxygen, 1 L., Disp: , Rfl: ??? polyethylene glycol (MIRALAX) 17 gram packet, Take 17 g by mouth 2 (two) times a day as needed (constipation)., Disp: 15 packet, Rfl: 0 ??? tamsulosin (FLOMAX) 0.4 mg extended release capsule, Take 1 capsule (0.4 mg total) by mouth nightly., Disp: 30 capsule, Rfl: 0 ??? triamcinolone (KENALOG) 0.1 % cream, APPLY A THIN LAYER TOPICALLY FOUR TIMES DAILY TO THE AFFECTED AREA, Disp: , Rfl: 3 Assessment: Diagnoses and all orders for this visit: Chronic atrial fibrillation (CMS/HCC) (Primary) Chronic anticoagulation Plan/Recommendations: His heart rate appears well controlled with metoprolol succinate 50 mg daily. I instructed the wifeto notify our office if she notices heart rates 100 b.p.m. or higher on the home blood pressure machine. She verbalized understanding and agreed. Continue metoprolol for rate control and Eliquis for anticoagulation. Return to the office to see Dr. Lake in 2-3 months. Call us sooner with questions or concerns. CINDI Nogueira- Nurse Practitioner with [facility] This note is dictated and transcribed using [employer] Direct Software. Costing Analyst variancesmay occur. Despite proofreading, typographical errors may occur. documented in this encounter Miscellaneous Notes * Addendum Note - Dorota Arias MA - 03/13/2018 2:00 PM CDTAddended by: DOROTA ARIAS on: 03/22/2018 04:42 PM Modules accepted: Orders documented in this encounter Plan of Treatment Not on file documented as of this encounter Procedures Procedure Name Priority Date/Time Associated Diagnosis Comments POCT LIPID PANEL Routine 03/22/2018 4:42 PM CDT Lipid screening documented in this encounter Results * POCT lipid panel (03/22/2018 4:42 PM CDT) Cholesterol, POC 100 mg/dL HDL, POC 44 mg/dL Triglycerides, POC 58 mg/dL LDL Cholesterol POC 44.4 mg/dL Cholesterol Total, POC 100 mg/dL Blood specimen (specimen) 03/22/2018 4:42 PM CDT Bruna Grant NP POINT OF CARE TEST ORDERA BLES Final Result documented in this encounter Visit Diagnoses Diagnosis Chronic atrial fibrillation (HCC)- Primary Atrial fibrillation Chronic anticoagulation Encounter for long-term (current) use of anticoagulants Lipid screening Screening for lipoid disorders documented in this encounter Discontinued Medications Medication Sig Discontinue Reason Start Date End Da te ipratropium-albuterol (DUO-NEB) 0.5-2.5 mg/3 mL nebulizer solutionIndications:Ch ronic Obstructive Pulmonary Disease with Bronchospasms Take 3 mL by nebulization every 6 (six) hours as needed for wheezing or shortness of breath. Discontinued by another clinician 11/09/2017 03/13/[address] (PROTONIX) 40 mg EC tabletIndications:Stre ss Ulcer Prophylaxis,GI prophylaxis Take 1 tablet (40 mg total) by mouth daily. Discontinued by another clinician 11/09/2017 03/13/2018 documented as of this encounter Historical Medications * This list may reflect changes made after this encounter. omeprazole (PriLOSEC) 40 mg capsule Take 1 capsule (40 mg total) by mouth daily diphenhydrAMINE (BENADRYL) 25 mg capsule Take 1 tablet/capsul e (25 mg total) by mouth 2 (two) times a day 03/27/2024 ascorbic acid (VITAMIN C) 500 mg tablet,chewable Take 1 tablet/chew tab (500 mg total) by mouth daily 03/27/2024 added in this encounter Care Teams Midwife Relationship Specialty Start Date End Date Briana Medeiros MD [address] [place] [address] PCP - General 07/06/12 03/24/22 documented as of this encounter
--- OUTSIDE RECORDS SUMMARY | 2024-05-24 23:23 | XMS_ITS | Encounter Summary ---
Author Organization [facility] Address [address] [facility] [address] [place] [address] Care Team Providers Care Chemistry Technologist Name Role Phone Briana Medeiros MD Primary Care Provider [phone] Encounter Details Date Type Department Care Team (Late st Contact Info) Description 03/16/2021 Telephone [facility] Cardiology [address] [facility] [address] [place] [address] Epi Lake MD [address] [place] [address] Social History Tobacco Use Types Packs/Day Years Used Date Smoking Tobacco: Former Cigarettes Q uit: 1982 Smokeless Tobacco: Never Alcohol Use Standard Drinks/Week Comments No 0 (1 standard drink = 0.6 oz pur e alcohol) Sex and Gender Information Value Date Recorded Sex Assigned at Not on file 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 * Telephone Encounter - Citlalli Li MA - 03/16/2021 12:04 PM CDT Monitor report printed and given to RN for review. * Telephone Encounter - Violetta Flores - 03/16/2021 11:36 AM CDT Nora called from [employer] to report pt ABNORMAL Holter report has been completed and notated online.Thank you documented in this encounter Plan of Treatment Not on file documented as of this encounter Visit Diagnoses Not on filedocumented in this encounter Care Teams Chemistry Technologist Relationship Specialty Start Date End Date Briana Medeiros MD [address] [place] [address] PCP - General 07/06/12 03/24/22 documented as of this encounter
--- OUTSIDE RECORDS SUMMARY | 2024-05-24 23:23 | XMS_ITS | Encounter Summary ---
Author Organization [facility] Healthcare Address [address] [place] [address] Care Team Providers Care Colon And Rectal Surgeon Name Role Phone Briana Medeiros MD Primary Care Provider [phone] Encounter Details Date Type Department Care Team (Late st Contact Info) Description 02/22/2019 2:30 PM CDT Lab [address] [address] Social History Tobacco Use Types Packs/Day Years Used Date Smoking Tobacco: Former Smokeless Tobacco: Never Alcohol Use Standard Drinks/Week Comments No 0 (1 standard drink = 0.6 oz pur e alcohol) Sex and Gender Information Value Date Recorded Sex Assigned at Not on file 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 Gender Identity Not on file Sexual Orientation Not on file documented as of this encounter Plan of Treatment Not on file documented as of this encounter Procedures Procedure Name Priority Date/Time Associated Diagnosis Comments PROTIME-INR Routine 03/18/2019 12:01 PM CDT EGFR Routine 02/22/2019 1:35 PM CDT DIFFERENTIAL AUTO Routine 02/22/2019 1:3 5 PM CDT COMPREHENSIVE METABOIC PANEL, SERUM Routine 02/22/2019 1:35 PM CDT CBC WITH AUTO DIFFERENTIAL Routine 02/22/2019 1:35 PM CDT PROTIME-INR Routine 02/22/2019 1:35 PM CDT AMMONIA Routine 02/22/2019 1:35 PM CDT documented in this encounter Results * (ABNORMAL) Protime-INR (03/18/2019 12:01 PM CDT) PT 18.9(H) 9.5 - 13.0 sec [facility] INR 1.62(H) 0.90 - 1.20 [facility] Blood specimen (specimen) 03/18/2019 12:01 PM CDT 03/18/2019 1:16 PM CDT Dominik Aguila MD LAB BLOOD ORDERABLES Fi nal Result [facility] [address] [place] [address] * eGFR (02/22/2019 1:35 PM CDT) eGFR 64 mL/min/1.7 3 m2 [facility] Comment: Interpretive Data Reference Interval Normal ?>/= 90 mL/min/1.73m2 Mildly decreased* ? 60 - 89 mL/min/1.73m2 Mildly to moderately decreased ?45 - 59 mL/min/1.73m2 Moderately to severely decreased ??30 - 44 mL/min/1.73m2 Severely decreased ?15 - 29 mL/min/1.73m2 Kidney Failure ?< 15 ??mL/min/1.73m2 *Relative to young adult level If -Sudanese multiply value by 1.16. Estimated glomerular filtration rate is determined by the CKD-EPI equation recommended by the National Kidney Foundation (KDIGO 2012 Clinical Practice Guideline for the Evaluation and Management of Chronic Kidney Disease. Kidney Intnl Suppl Jun 2012;3:1). The CKD-EPI equation should not be used for patients with unstable renal function and has not been validated in children and those over 70. Current interpretive data was last reviewed 2015. Blood specimen (specimen) 02/22/2019 1:35 PM CDT 02/22/2019 2:35 PM CDT us Notinfile Unknown LAB BLOOD ORDERABLES Final Res ult [facility] [address] [place] [address] * (ABNORMAL) Differential, auto (02/22/2019 1:35 PM CDT) Neutrophil abs 5.7 1.7 - 6.5 K/cumm [facility] Imm gran abs 0.0 0.0 - 0.1 K/cumm [facility] Lymphocyte abs 0.6(L) 0.8 - 3.3 K/cumm [facility] Monocyte abs 0.9(H) 0.2 - 0.8 K/cumm [facility] Eosinophil abs 0.5 0.0 - 0.5 K/cumm [facility] Basophil abs 0.0 0.0 - 0.1 K/cumm [facility] Neutrophil pct 73.4 % [facility] Comment: Interpretive Data Percent cell count reference ranges are not reported, since discordance with absolute values may lead to misinterpretation of CBC data. Current Interpretive Data was last revised on 2017. Imm gran pct 0.6 % [facility] Comment: Interpretive Data Percent cell count reference ranges are not reported, since discordance with absolute values may lead to misinterpretation of CBC data. Current Interpretive Data was last revised on 2017. Lymphocyte pct 7.5 % [facility] Comment: Interpretive Data Percent cell count reference ranges are not reported, since discordance with absolute values may lead to misinterpretation of CBC data. Current Interpretive Data was last revised on 2017. Monocyte pct 11.4 % [facility] Comment: Interpretive Data Percent cell count reference ranges are not reported, since discordance with absolute values may lead to misinterpretation of CBC data. Current Interpretive Data was last revised on 2017. Eosinophil pct 6.8 % [facility] Comment: Interpretive Data Percent cell count reference ranges are not reported, since discordance with absolute values may lead to misinterpretation of CBC data. Current Interpretive Data was last revised on 2017. Basophil pct 0.3 % [facility] Comment: Interpretive Data Percent cell count reference ranges are not reported, since discordance with absolute values may lead to misinterpretation of CBC data. Current Interpretive Data was last revised on 2017. Blood specimen (specimen) 02/22/2019 1:35 PM CDT 02/22/2019 2:30 PM CDT us Notinfile Unknown LAB BLOOD ORDERABLES Final Res ult Performing Organization Address [facility] de Phone Number [facility] [address] [place] [address] * (ABNORMAL) Protime-INR (02/22/2019 1:35 PM CDT) PT 16.8(H) 9.5 - 13.0 sec [facility] INR 1.44(H) 0.90 - 1.20 [facility] Blood specimen (specimen) 02/22/2019 1:35 PM CDT 02/22/2019 2:30 PM CDT us Notinfile Unknown LAB BLOOD ORDERABLES Final Res ult Performing Organization Address [facility] de Phone Number [facility] [address] [place] [address] * (ABNORMAL) CBC with auto differential (02/22/2019 1:35 PM CDT) WBC 7.8 3.8 - 9.9 K/cumm [facility] Hgb 7.9(L) 13.0 - 17.5 g/dL [facility] Hct 27.5(L) 38.9 - 50.3 % [facility] Plt 245 150 - 400 K/cumm [facility] MPV 12.5(H) 9.1 - 12.3 fL [facility] RBC 2.94(L) 4.30 - 5.80 M/cumm [facility] MCV 93.5 81.3 - 96.4 fL [facility] MCH 26.9(L) 27.1 - 33.3 pg [facility] MCHC 28.7(L) 32.3 - 35.7 g/dL [facility] CV 17.2(H) 11.1 - 14.9 % [facility] RDW SD 58.9(H) 35.7 - 48.1 fL [facility] NRBC abs 0.00 0.00 - 0.01 K/cumm [facility] Blood specimen (specimen) 02/22/2019 1:35 PM CDT 02/22/2019 2:30 PM CDT us Notinfile Unknown LAB BLOOD ORDERABLES Final Res ult [facility] [address] [place] [address] * (ABNORMAL) Comprehensive metabolic panel, serum (02/22/2019 1:35 PM CDT) Sodium 140 135 - 145 mmol/L [facility] Potassium, sr 4.4 3.6 - 5.2 mmol/L [facility] Chloride 104 97 - 110 mmol/L [facility] CO2 23 22 - 32 mmol/L [facility] Anion gap 13 2 - 15 mmol/L [facility] BUN 10 8 - 25 mg/dL [facility] Creatinine 1.15 0.80 - 1.30 mg/dL [facility] Glucose 103 70 - 199 mg/dL [facility] Comment: Interpretive Data Fasting glucose >/= 126 mg/dl is diagnostic for diabetes. ?? Fasting is defined as no caloric intake for at least 8 hours. Fasting glucose between 100 mg/dl to 125 mg/dl is diagnostic of prediabetes. In a patient with classic symptoms of hyperglycemia or hyperglycemic crisis, a random glucose >/= 200 mg/dl is diagnostic for diabetes. In the absence of unequivocal hyperglycemia, results should be confirmed by repeat testing. The classification and Diagnosis of Diabetes Diabetes Care 2017;40 (Suppl. 1):S11. Current interpretive data was last revised 2017. Calcium 8.3(L) 8.5 - 10.3 mg/dL [facility] Bilirubin, total 0.6 0.1 - 1.2 mg/dL [facility] Protein, sr 5.9(L) 6.2 - 8.2 g/dL [facility] Albumin 3.0(L) 3.5 - 5.0 g/dL [facility] Alk phos 335(H) 40 - 130 Units/L [facility] ALT 20 7 - 55 Units/L [facility] AST 22 10 - 50 Units/L [facility] Blood specimen (specimen) 02/22/2019 1:35 PM CDT 02/22/2019 2:29 PM CDT us Notinfile Unknown LAB BLOOD ORDERABLES Final Res ult Performing Organization Address [facility] de Phone Number [facility] [address] [place], [place] [id number] * Ammonia (02/22/2019 1:35 PM CDT) Ammonia 28 5 - 50 mcmol/L [facility] Blood specimen (specimen) 02/22/2019 1:35 PM CDT 02/22/2019 2:27 PM CDT us Notinfile Unknown LAB BLOOD ORDERABLES Final Res ult Performing Organization Address [facility] de Phone Number [facility] [address] [place] [address] documented in this encounter Visit Diagnoses Not on filedocumented in this encounter Care Teams Colon And Rectal Surgeon Relationship Specialty Start Date End Date Briana Medeiros MD [address] [place] [address] PCP - General 07/06/12 03/24/22 documented as of this encounter
--- OUTSIDE RECORDS SUMMARY | 2024-05-24 23:23 | XMS_ITS | Encounter Summary ---
Author Organization [facility] Address [address] [place] [address] Care Team Providers Care Legal Billing Clerk Name Role Phone Briana Medeiros MD Primary Care Provider [phone] Reason for Visit * Cardiology (Routine) - Closed Specialty Diagnoses / Procedures Referred By Contsara t Referred To Contact Diagnoses Bradycardia Procedures 24 HR Holter Monitor Briana Medeiros MD [address] [place] [address] Phone: tel: fax: [facility] Referral ID Status Reason Start Date Expiration Date Visits Re quested Visits Authorized [id number] Closed 03/09/2021 04/08/2022 1 1 Encounter Details Date Type Department Care Team (Late st Contact Info) Description 03/11/2021 1:30 PM CDT Ancillary Procedure [facility] Medical [facility] Cardiology [address] [place] [address] Bradycardia Social History Tobacco Use Types Packs/Day Years Used Date Smoking Tobacco: Former Cigarettes Q uit: 1982 Smokeless Tobacco: Never Alcohol Use Standard Drinks/Week Comments No 0 (1 standard drink = 0.6 oz pur e alcohol) Sex and Gender Information Value Date Recorded Sex Assigned at Not on file 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 Requesting Provider: ?? Briana Medeiros MD Router Operator Radial: ??BONIFACIO Gilbert Date of interpretation: 03/16/21 Type of monitor : ??24 hour Holter Date of the study/Enrollment period: ??03/11/2021 Indication: ??Atrial fibrillation, bradycardia Quality of the study: ??Good Interpretation: ??The patient was monitored for 24 hours. ??The underlying rhythm was persistent atrial fibrillation with a minimum rate of 42 beats per minute at 6:18 a.m., average heart rate of 72 beats per minute and maximum heart rate of 76 beats per minute. ??Brief pauses were noted, the longest being for 2.3 seconds at 6:17 a.m.. ??Frequent PVCs were noted, which appeared unifocal. ??There is a 17% PVC burden. ??There also episodes of bigeminy, trigeminy, and 1100 ventricular couplets. ??There were 2 ventricular triplets and 1 4 beat run of ventricular tachycardia was seen. The patient marked 6 events, which occurred during atrial fibrillation rate 50-92 beats per minute. ??Two were associated with occasional PVCs. Conclusions: 1. Persistent atrial fibrillation with a controlled heart rate response 2. Frequent PVCs with a 17% burden, with some bigeminy and trigeminy 3. Symptoms were associated with atrial fibrillation and twice with occasional PVCs 4. No significant bradycardia or significant pauses were noted Voice recognition software was used to complete this document, therefore, jet inspector variances may occur. Aviva Scott MD, [facility] 03/16/21 [facility] Cardiology Procedure Note Aviva Scott MD - 03/16/2021 AMBULATORY SUPERVISOR TILE AND MOTTLE REPORT Patient Name: Mason Keys Date of : 1950 Requesting Provider: Briana Medeiros MD Router Operator Radial: BONIFACIO Gilbert Date of interpretation: 03/16/21 Type of monitor : 24 hour Holter Date of the study/Enrollment period: 03/11/2021 Indication: Atrial fibrillation, bradycardia Quality of the study: Good Interpretation: The patient was monitored for 24 hours. The underlyingrhythm was persistent atrial fibrillation with a minimum rate of 42 beatsper minute at 6:18 a.m., average heart rate of 72 beats per minute andmaximum heart rate of 76 beats per minute. Brief pauses were noted, thelongest being for 2.3 seconds at 6:17 a.m.. Frequent PVCs were noted,which appeared unifocal. There is a 17% PVC burden. There also episodesof bigeminy, trigeminy, and 1100 ventricular couplets. There were 2ventricular triplets and 1 4 beat run of ventricular tachycardia was seen.The patient marked 6 events, which occurred during atrial fibrillationrate 50-92 beats per minute. Two were associated with occasional PVCs. Conclusions: 1. Persistent atrial fibrillation with a controlled heart rate response 2. Frequent PVCs with a 17% burden, with some bigeminy and trigeminy 3. Symptoms were associated with atrial fibrillation and twice withoccasional PVCs 4. No significant bradycardia or significant pauses were noted Voice recognition software was used to complete this document, therefore,jet inspector variances may occur. Aviva Scott MD, [facility] 03/16/21 [facility] Cardiology us Briana Medeiros MD CV CARDIAC SERVICES PROCEDURES F inal Result documented in this encounter Visit Diagnoses Diagnosis Bradycardia Other specified cardiac dysrhythmias documented in this encounter Care Teams Legal Billing Clerk Relationship Specialty Start Date End Date Briana Medeiros MD [address] [place] [address] PCP - General 07/06/12 03/24/22 documented as of this encounter
--- OUTSIDE RECORDS SUMMARY | 2024-05-24 23:23 | XMS_ITS | Encounter Summary ---
Author Organization [facility] Address [address] [place] [address] Care Team Providers Care Dance Choreographer Name Role Phone Briana Medeiros MD Primary Care Provider [phone] Encounter Details Date Type Department Care Team (Late st Contact Info) Description 07/27/2018 Telephone [facility] [address] [address] Epi Lake MD [address] [address] Social History Tobacco Use Types Packs/Day Years Used Date Smoking Tobacco: Former Smokeless Tobacco: Never Alcohol Use Standard Drinks/Week Comments No 0 (1 standard drink = 0.6 oz pur e alcohol) Sex and Gender Information Value Date Recorded Sex Assigned at Not on file 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 said the note they received said pt had a sinus arrhthymia with PVCs. Told her pt has chronic a.fib, so without seeing the EKG, hard to know if the interpretation is correct. In any event, sinus arrhythmia is nothing to worry about anyway. . DRILL OPERATOR HELPER CABLE TOOL * Telephone Encounter - Jazmin Garcia. - 07/27/2018 1:17 PM CST Please call patient regarding an [facility] DRILL OPERATOR HELPER CABLE TOOL documented in this encounter Plan of Treatment Not on file documented as of this encounter Visit Diagnoses Not on filedocumented in this encounter Care Teams Dance Choreographer Relationship Specialty Start Date End Date Briana Medeiros MD [address] [place] [address] PCP - General 07/06/12 03/24/22 documented as of this encounter
--- OUTSIDE RECORDS SUMMARY | 2024-05-24 23:23 | XMS_ITS | Encounter Summary ---
Author Organization [facility] Address [address] [place] [address] Care Team Providers Care Mold Cleaner Name Role Phone Briana Medeiros MD Primary Care Provider Reason for Visit * Reason Comments Atrial Fibrillation 6 mo f/u Encounter Details Date Type Department Care Team (Late st Contact Info) Description 08/12/2020 2:00 PM ORDER 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 Office Visit [facility] Cardiology [address] [facility] [address] [place] [address] Epi Lake MD [address] [facility] [address] [place] [address] Chronic atrial fibrillation (CMS/HCC) (Primary Dx) Social History Tobacco Use Types Packs/Day Years Used Date Smoking Tobacco: Former Cigarettes Q uit: 1982 Smokeless Tobacco: Never Alcohol Use Standard Drinks/Week Comments No 0 (1 standard drink = 0.6 oz pur e alcohol) Sex and Gender Information Value Date Recorded Sex Assigned at Not on file Legal 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 Gender Identity Not on file Sexual Orientation Not on file documented as of this encounter Last Filed Vital Signs Vital Sign Reading Time Taken Comments Blood Pressure 100/64 08/12/2020 2:13 PM ORDER 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 Pulse 88 08/12/2020 2:13 PM ORDER 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 Temperature - - Respiratory Rate - - Oxygen Saturation 95% 08/12/2020 2:13 PM ORDER 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 Inhaled Oxygen Concentration - - Weight 112 kg (247 lb) 08/12/2020 2:13 PM ORDER 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 Height 180.3 cm (5' 11 ) 08/12/2020 2:13 PM ORDER 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 Body Mass Index 34.45 08/12/2020 2:13 PM ORDER 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 documented in this encounter Progress Notes * Epi Lake MD - 08/12/2020 2:00 PM CST [facility] FOLLOW UP 08/12/2020 Mason Keys is a 69 y.o. male who presents for follow up [...] off the ventilator support. Physicians at the [facility] had placed him on amiodarone for simple rate control. After I saw the patient in follow-up in February of 2018 I transitioned him back to standard beta-fe treatment because the correctional officer sergeant at the [facility] did not want him on the amiodarone which is not a drug that I started in the 1st place. 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 He is doing very well overall and does not have any complaints. His wanted to talk for a long time about his blood pressure. She was very concerned that his systolic blood pressure at times was in the 150-160 range. She contacted the PCP who advanced the dosage of his metoprolol which is probably the correct decision. His blood pressure today in the office is excellent and I cautioned them against excessively trying to lower this any further especially since he is an elderly man with atrial fibrillation we do not want to create a problem with orthostasis. REVIEW OF SYSTEMS General ROS: negative for [...] rash HOME MEDICATIONS Current Outpatient Medications: ??? oxygen, 1 L., Disp: , Rfl: ??? acetaminophen (TYLENOL) 325 mg tablet, Take [...] ), Disp: 90 tablet, Rfl: 0 ??? benzonatate (TESSALON) 200 mg capsule, Take 200 mg by mouth 3 (three) times a day as needed forcough, Disp: , Rfl: ??? budesonide-formoterol (SYMBICORT) 80-4.5 mcg/actuation inhaler, Inhale [...] itching., Disp: 222 mL, Rfl: 0 ??? cyanocobalamin, vitamin B-12, [...] a day, Disp: , Rfl: ??? metoprolol linda-hydrochlorothiaz 50-12.5 mg tablet extended release 24 hr, Take 1 tablet by mouthdaily, Disp: , Rfl: ??? miconazole 2 % powder, Apply topically 2 (two) times a day., Disp: 70 g, Rfl: 0 ??? nystatin powder, Apply topically 4 (four) times a day, Disp: , Rfl: ??? omeprazole (PriLOSEC) 40 mg capsule, Take 40 mg by mouth daily., Disp: , Rfl: ??? polyethylene glycol (MIRALAX) 17 gram packet, Take 17 g by mouth 2 (two) times a day as needed (constipation)., Disp: 15 packet, Rfl: 0 ??? potassium chloride (KLOR-CON) 20 mEq packet, Take 20 mEq by mouth daily , Disp: , Rfl: ??? tamsulosin (FLOMAX) 0.4 [...] lab exists for component: LABALBU PHYSICAL EXAM There were no vitals taken for this visit. Physical Examination: General appearance - alert, well [...] for this visit: Chronic atrial fibrillation (CMS/HCC) PLAN/RECOMMENDATIONS Continue current rate control and anticoagulation regimen and will continue to see him at 6 month intervals. Agree with PCP decision to advance the metoprolol Epi Lake MD R 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 documented in this encounter Plan of Treatment Not on file documented as of this encounter Visit Diagnoses Diagnosis Chronic atrial fibrillation (HCC)- Primary Atrial fibrillation documented in this encounter Historical Medications * This list may reflect changes made after this encounter. cetirizine (ZyrTEC) 10 mg tablet Take 1 tablet (10 mg total) by mouth daily DULoxetine DR (CYMBALTA) 30 mg capsule Take by mouth daily 07/24/2020 03/27/2024 added in this encounter Care Teams Mold Cleaner Relationship Specialty Start Date End Date Briana Medeiros MD [address] [place] [address] PCP - General 07/06/12 03/24/22 documented as of this encounter
--- OUTSIDE RECORDS SUMMARY | 2024-05-24 23:23 | XMS_ITS | Encounter Summary ---
Author Organization [facility] Healthcare Address [address] [place] [address] Care Team Providers Care Spanish Interpreter Name Role Phone Briana Medeiros MD Primary Care Provider [phone] Encounter Details Date Type Department Care Team (Late st Contact Info) Description 02/22/2019 11:45 AM CDT Lab [address] [address] Social History Tobacco Use Types Packs/Day Years Used Date Smoking Tobacco: Former Smokeless Tobacco: Never Alcohol Use Standard Drinks/Week Comments No 0 (1 standard drink = 0.6 oz pur e alcohol) Sex and Gender Information Value Date Recorded Sex Assigned at Not on file Legal 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 Male 11:24 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 60 - 89 mL/min/1.73m2 Mildly to moderately decreased ?45 - 59 mL/min/1.73m2 Moderately to severely decreased ??30 - 44 mL/min/1.73m2 Severely decreased ?15 - 29 mL/min/1.73m2 Kidney Failure ?< 15 ??mL/min/1.73m2 *Relative to young adult level If -Cameroonian multiply value by 1.16. Estimated glomerular filtration [...] last reviewed 2015. Blood specimen (specimen) 02/22/2019 10:35 AM CDT 02/22/2019 11:54 AM CDT us Notinfile Unknown LAB BLOOD ORDERABLES Final Res ult Performing Organization Address City/State/[facility] Co de Phone Number [facility] [address] [place] [address] * (ABNORMAL) Vancomycin, trough (02/22/2019 10:35 AM CDT) Vancomycin trough 7.3(L) 10.0 - 20.0 mcg/mL [facility] Comment: Interpretive Data Desired Vancomycin trough levels are 10.0 to 20.0 mcg/mL for combined therapy with aminoglycosides (see following exceptions). Desired trough levels for specific clinical indications: - Urinary tract infections (UTI): ??5.0 mcg/mL - Methicillin Resistant staphylococcal infection: ??10.0 - 15.0 mcg/mL - Central nervous system (MARKETING OPERATIONS ASSOCIATE) infection, endocarditis, ??osteomyelitis, pneumonia: ??With aminoglycoside 10.0 - 15.0 mcg/mL ??Vancomycin alone ?15.0 - 20.0 mcg/mL. -- Pharmacy will manage the oversight of therapeutic monitoring and dose adjustment for vancomycin. ??Physicians may opt out of this service. ??I this service is not utilized, special attention by caregivers to the timing of the dose relative to the draw time(s) of the above levels is needed for interpretation. Blood specimen (specimen) 02/22/2019 10:35 AM CDT 02/22/2019 11:41 AM CDT us Notinfile Unknown LAB BLOOD ORDERABLES Final Res ult [facility] [address] [place] [address] * (ABNORMAL) Basic metabolic panel, serum (02/22/2019 10:35 AM CDT) Sodium 141 135 - 145 mmol/L [facility] Potassium, sr 4.3 3.6 - 5.2 mmol/L [facility] Chloride 104 97 - 110 mmol/L [facility] CO2 23 22 - 32 mmol/L [facility] Anion gap 14 2 - 15 mmol/L [facility] BUN 9 8 - 25 mg/dL [facility] Creatinine 0.97 0.80 - 1.30 mg/dL [facility] Glucose 121 70 - 199 mg/dL [facility] Comment: Interpretive Data Fasting glucose >/= 126 [...] interpretive data was last revised 2017. Calcium 8.4(L) 8.5 - 10.3 mg/dL [facility] Blood specimen (specimen) 02/22/2019 10:35 AM CDT 02/22/2019 11:40 AM CDT us Notinfile Unknown LAB BLOOD ORDERABLES Final Res ult [facility] [address] [place] [address] documented in this encounter Visit Diagnoses Not on filedocumented in this encounter Care Teams Spanish Interpreter Relationship Specialty Start Date End Date Briana Medeiros MD [address] [place] [address] PCP - General 07/06/12 03/24/22 documented as of this encounter
--- OUTSIDE RECORDS SUMMARY | 2024-05-24 23:23 | XMS_ITS | Encounter Summary ---
Author Organization [facility] Facility Care Team Providers Care Technical Clerk Name Role Phone Briana Medeiros MD Primary Care Provider [phone] Encounter Details Date Type Department Care Team (Latest Contact Info) Description 06/26/2019 Travel Social History Tobacco Use Types Packs/Day Years Used Date Smoking Tobacco: Former Smokeless Tobacco: Never Alcohol Use Standard Drinks/Week Comments No 0 (1 standard drink = 0.6 oz pur e alcohol) Sex and Gender Information Value Date Recorded Sex Assigned at Not on file Legal Sex Male 11:24 AM SUPERVISOR RECLAMATION Gender Identity Not on file Sexual Orientation Not on file documented as of this encounter Plan of Treatment Not on file documented as of this encounter Visit Diagnoses Not on filedocumented in this encounter Care Teams Technical Clerk Relationship Specialty Start Date End Date Briana Medeiros MD [address] [place], [place] [id number] PCP - General 07/06/12 03/24/22 documented as of this encounter
--- OUTSIDE RECORDS SUMMARY | 2024-05-24 23:23 | XMS_ITS | Encounter Summary ---
Author Organization [facility] Medical Group Address [address] [place] [address] Care Team Providers Care Gis Technician Name Role Phone Briana Medeiros MD Primary Care Provider [phone] Encounter Details Date Type Department Care Team (Late st Contact Info) Description 03/09/2021 Orders Only [facility] Medical Group Cardiology [address] [facility] [address] [place] [address] Provider, MD Claire [address] [place], [place] [id number] Social History Tobacco Use Types Packs/Day Years Used Date Smoking Tobacco: Former Cigarettes Q uit: 1982 Smokeless Tobacco: Never Alcohol Use Standard Drinks/Week Comments No 0 (1 standard drink = 0.6 oz pur e alcohol) Sex and Gender Information Value Date Recorded Sex Assigned at Not on file 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 Gender Identity Not on file Sexual Orientation Not on file documented as of this encounter Plan of Treatment Not on file documented as of this encounter Procedures Procedure Name Priority Date/Time Associated Diagnosis Comments CARDIOLOGY DOCUMENT SCAN Routine 03/09/2021 documented in this encounter Results * SCAN - CARDIOLOGY (03/09/2021) Anatomical Region Laterality Modality Other Historical Provider [facility] A[facility] THOMAS Final Result documented in this encounter Visit Diagnoses Not on filedocumented in this encounter Care Teams Gis Technician Relationship Specialty Start Date End Date Briana Medeiros MD [address] [place] [address] PCP - General 07/06/12 03/24/22 documented as of this encounter
--- OUTSIDE RECORDS SUMMARY | 2024-05-24 23:23 | XMS_ITS | Encounter Summary ---
Author Organization [facility] Medical Group Address [address] [place] [address] Care Team Providers Care Graduate Assistant Athletic Trainer Name Role Phone Briana Medeiros MD Primary Care Provider [phone] Reason for Visit * Reason Comments Follow-up 6 mo fu on a-fib Encounter Details Date Type Department Care Team (Late st Contact Info) Description 12/19/2018 8:15 AM CDT Office Visit [facility] [address] [facility] [address] [address] Epi Lake MD [address] [facility] [address] [place] [address] Chronic atrial fibrillation (CMS/HCC) (Primary Dx) Social History Tobacco Use Types Packs/Day Years Used Date Smoking Tobacco: Former Smokeless Tobacco: Never Alcohol Use Standard Drinks/Week Comments No 0 (1 standard drink = 0.6 oz pur e alcohol) Sex and Gender Information Value Date Recorded Sex Assigned at Not on file 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 Gender Identity Not on file Sexual Orientation Not on file documented as of this encounter Last Filed Vital Signs Vital Sign Reading Time Taken Comments Blood Pressure 106/60 12/19/2018 8:34 AM CDT Pulse 110 12/19/2018 8:34 AM CDT Temperature - - Respiratory Rate - - Oxygen Saturation 96% 12/19/2018 8:34 AM CDT Inhaled Oxygen Concentration - - Weight 99.3 kg (219 lb) 12/19/2018 8:34 AM CDT Height 180.3 cm (5' 11 ) 12/19/2018 8:34 AM CDT Body Mass Index 30.54 12/19/2018 8:34 AM CDT documented in this encounter Progress Notes * Epi Lake MD - 12/19/2018 8:15 AM CDT [facility] FOLLOW UP 12/19/2018 Mason Keys is a 68 y.o. male who presents for follow up of chronic atrial fibrillation. 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 Physicians at the [facility] had placed him on amiodarone for simple rate control. After I saw the patient in follow-up in February of 2018 I transitioned him back to standard beta-fe treatment because the house designer at the [facility] did not want him on the amiodarone which is not a drug that I started in the 1st place. He returns today for scheduled six-month office follow-up. The patient has no cardiovascular complaints today. He continues to take his beta-fe for rate control and anticoagulation with apixaban. REVIEW OF SYSTEMS General ROS: negative for [...] CHOLHDL Lab Results Component Value Date WBC 5.7 11/07/2017 HGB 9.5 (L) 11/07/2017 HCT 31.5 (L) 11/07/2017 MCV 96.9 (H) 11/07/2017 No lab exists for component: LABALBU PHYSICAL [...] noted ASSESSMENT Mason was seen today for follow-up. Diagnoses and all orders for this visit: [...] Discontinue Reason Start Date End Da te lidocaine (LIDODERM) 5 %Indications:Postherpet ic Neuralgia Apply 1 patch topically daily. Remove & discard patch within 12 hours or as directed by MD. Therapy completed 11/09/2017 12/19/2018 oxyCODONE (ROXICODONE) 5 mg immediate release tabletIndications:Pain Take 1 tablet (5 mg total) by mouth every 4 (four) hours as needed for pain. Therapy completed 2017 12/19/2018 documented as of this encounter Care Teams Graduate Assistant Athletic Trainer Relationship Specialty Start Date End Date Briana Medeiros MD [address] [place] [address] PCP - General 07/06/12 03/24/22 documented as of this encounter
--- OUTSIDE RECORDS SUMMARY | 2024-05-24 23:23 | XMS_ITS | Encounter Summary ---
Author Organization [facility] Medical Group Address [address] [place] [address] Care Team Providers Care Setter Induction Heating Equipment Name Role Phone Briana Medeiros MD Primary Care Provider [phone] Encounter Details Date Type Department Care Team (Late st Contact Info) Description 08/13/2020 Telephone [facility] Cardiology [address] [facility] [address] [place] [address] Epi Lake MD [address] [place] [address] Social History Tobacco Use Types Packs/Day Years Used Date Smoking Tobacco: Former Cigarettes Q uit: 1982 Smokeless Tobacco: Never Alcohol Use Standard Drinks/Week Comments No 0 (1 standard drink = 0.6 oz pur e alcohol) Sex and Gender Information Value Date Recorded Sex Assigned at Not on file Legal Sex Male 11:24 AM CORRECTIONAL SUPERVISOR Gender Identity Not on file Sexual Orientation Not on file documented as of this encounter Miscellaneous Notes * Telephone Encounter - Citlalli Li MA - 08/15/2020 6:01 PM CST Patient and notified and medication list in chart updated. ECTIONAL SUPERVISOR * Telephone Encounter - Epi Lake MD - 08/15/2020 4:08 PM CORRECTIONAL SUPERVISOR This patient's chart is on my desk with questions regarding his medicines. According to what I see in the chart his primary care physician recently increased his metoprolol to 100 mg daily. I do not want him taking metoprolol with hydrochlorothiazide since he is also taking Bumex. ECTIONAL SUPERVISOR * Telephone Encounter - Citlalli Li MA - 08/15/2020 3:37 PM CST Will forward to Dr. Lake to see if the patient should be taking metoprolol with or without HCTZ 12.5 mg. Bemetanide has already been corrected in the chart. ECTIONAL SUPERVISOR * Telephone Encounter - Johnna Navas - 08/13/2020 3:29 PM CST Spouse reports that pt is taking metoprolol succinate 50 mg tabs. Taking 100 mg total per day. Med list shows metoprolol succinate/hydrochlorothiazide 50/12.5 mg. Spouse wants to make sure nothing has changed and that pt is still supposed to be taking metoprololsuccinate 50 mg tabs 2 per day. Also mentioned the patient is taking bumetanide differently. [phone] ECTIONAL SUPERVISOR documented in this encounter Plan of Treatment Not on file documented as of this encounter Visit Diagnoses Not on filedocumented in this encounter Discontinued Medications Medication Sig Discontinue Reason Start Date End Da te metoprolol linda-hydrochlorothiaz 50-12.5 mg tablet extended release 24 hr Take 2 tablets by mouth daily Alternate therapy 08/15/2020 documented as of this encounter Historical Medications * This list may reflect changes made after this encounter. metoprolol XL (TOPROL-XL) 50 mg extended release tablet Take 1 tablet (50 mg total) by mouth daily added in this encounter Care Teams Setter Induction Heating Equipment Relationship Specialty Start Date End Date Briana Medeiros MD [address] [place] [address] PCP - General 07/06/12 03/24/22 documented as of this encounter
--- OUTSIDE RECORDS SUMMARY | 2024-05-24 23:23 | XMS_ITS | Encounter Summary ---
Author Organization [facility] Medical Group Address [address] [facility] [address] [place] [address] Care Team Providers Care Hotshot Superintendent Name Role Phone Briana Medeiros MD Primary Care Provider [phone] Reason for Visit * Reason Comments Follow-up overdue 6 month f/u Atrial Fibrillation chronic Encounter Details Date Type Department Care Team (Late st Contact Info) Description 03/06/2020 9:45 AM CDT Office Visit [facility] Medical [facility] Cardiology [address] [facility] [address] [place] [address] Epi Lake MD [address] [place] [address] Chronic atrial fibrillation (CMS/HCC) (Primary Dx); Lipid screening Social History Tobacco Use Types Packs/Day Years Used Date Smoking Tobacco: Former Cigarettes Q uit: 1982 Smokeless Tobacco: Never Alcohol Use Standard Drinks/Week Comments No 0 (1 standard drink = 0.6 oz pur e alcohol) Sex and Gender Information Value Date Recorded Sex Assigned at Not on file 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 Gender Identity Not on file Sexual Orientation Not on file documented as of this encounter Last Filed Vital Signs Vital Sign Reading Time Taken Comments Blood Pressure 106/60 03/06/2020 10:26 AM CDT Pulse 96 03/06/2020 10:26 AM CDT Temperature - - Respiratory Rate - - Oxygen Saturation 97% 03/06/2020 10:26 AM CDT Inhaled Oxygen Concentration - - Weight 99.8 kg (220 lb) 03/06/2020 10:26 AM CDT per pt Height 180.3 cm (5' 11 ) 03/06/2020 10:26 AM CDT Body Mass Index 30.68 03/06/2020 10:26 AM CDT documented in this encounter Progress Notes * Epi Lake MD - 03/06/2020 9:45 AM CDT [facility] 03/06/2020 Mason Keys is a 69 y.o. male [...] off the ventilator support. Physicians at the [facility] had placed him on amiodarone for simple rate control. After I saw the patient in follow-up in February of 2018 I transitioned him back to standard beta-fe treatment because the tire and tube repairer at the [facility] did not want him on the amiodarone which is not a drug that I started in the 1st place. He returns today for scheduled six-month office follow-up. He has not had any obvious cardiovascular problems since his last visit here. He did have a fall and sustained a thoracic spine fracture. 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 Regarding his atrial fibrillation he hashad no symptoms or awareness of that. REVIEW OF SYSTEMS General ROS: negative for [...] for component: LABALBU PHYSICAL EXAM Vitals BP 106/60 (BP Location: Left arm, Patient Position: Sitting) Pulse 96 Ht 180.3 cm (5' 11 ) Wt 99.8 kg (220 lb) SpO2 97% BMI 30.68 kg/m?? Physical Examination: General appearance - alert, [...] Addendum Note - Andrea Bray MA - 03/06/2020 9:45 AM CDTAddended by: ANDREA BRAY on: 03/06/2020 11:47 AM Modules accepted: Orders documented in this encounter Plan of Treatment Not on file documented as of this encounter Procedures Procedure Name Priority Date/Time Associated Diagnosis Comments POCT LIPID PANEL Routine 03/06/2020 11:4 5 AM CDT Lipid screening documented in this encounter Results * POCT lipid panel (03/06/2020 11:45 AM CDT) Cholesterol, POC 131 mg/dL Comment:GLU = 151 HDL, POC 51 mg/dL Triglycerides, POC 112 mg/dL LDL Cholesterol POC 58 mg/dL Chol/HDL Ratio, POC 2.6 Non-HDL Cholesterol, POC 80 mg/dL Cholesterol Total, POC 131 mg/dL Capillary blood 03/06/2020 1 1:45 AM CDT us Epi Lake MD POINT OF CARE TEST ORDER KENDALL Final Result documented in this encounter Visit Diagnoses Diagnosis Chronic atrial fibrillation (HCC)- Primary Atrial fibrillation Lipid screening Screening for lipoid disorders documented in this encounter Discontinued Medications Medication Sig Discontinue Reason Start Date End Da te chlorhexidine (PERIDEX) 0.12 % solutionIndications:Mout h Infection Prevention Apply 5 mL to the mouth or throat 2 (two) times a day. Therapy completed 11/09/2017 03/06/2020 ondansetron (ZOFRAN) 4 mg tablet as needed. Therapy completed 02/01/2018 03/06/2020 documented as of this encounter Historical Medications * This list may reflect changes made after this encounter. nystatin powder Apply topically 4 (four) times a day ferrous fumarate 325 mg (106 mg iron) tablet Take 1 tablet (325 mg total) by mouth daily with breakfast Daliresp 500 mcg tablet 02/29/2020 tiotropium bromide (SPIRIVA RESPIMAT) 2.5 mcg/actuation inhaler Inhale 2 added in this encounter Care Teams Hotshot Superintendent Relationship Specialty Start Date End Date Briana Medeiros MD [address] [place] [address] PCP - General 07/06/12 03/24/22 documented as of this encounter
--- OUTSIDE RECORDS SUMMARY | 2024-05-24 23:23 | XMS_ITS | Encounter Summary ---
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
--- OUTSIDE RECORDS SUMMARY | 2024-05-24 23:23 | XMS_ITS | Encounter Summary ---
Author Organization [facility] Healthcare Address [address] [place] [address] Care Team Providers Care Bulldozer Mechanic Name Role Phone Briana Medeiros MD Primary Care Provider [phone] Encounter Details Date Type Department Care Team (Late st Contact Info) Description 03/22/2019 11:25 AM CDT Lab [address] [address] Social History Tobacco Use Types Packs/Day Years Used Date Smoking Tobacco: Former Smokeless Tobacco: Never Alcohol Use Standard Drinks/Week Comments No 0 (1 standard drink = 0.6 oz pur e alcohol) Sex and Gender Information Value Date Recorded Sex Assigned at Not on file Legal 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 Male 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 Gender Identity Not on file Sexual Orientation Not on file documented as of this encounter Plan of Treatment Not on file documented as of this encounter Procedures Procedure Name Priority Date/Time Associated Diagnosis Comments EGFR STAT 03/22/2019 10:50 AM CDT COMPREHENSIVE METABOIC PANEL, SERUM STAT 03/22/2019 10:50 AM CDT PROTIME-INR STAT 03/22/2019 10:50 AM CDT CBC WITHOUT DIFFERENTIAL STAT 03/22/2019 10:50 AM CDT VANCOMYCIN LEVEL TROUGH STAT 03/22/2019 10:50 AM CDT documented in this encounter Results * eGFR (03/22/2019 10:50 AM CDT) eGFR 83 mL/min/1.7 3 m2 [facility] Comment: Interpretive Data Reference Interval Normal ?>/= 90 mL/min/1.73m2 Mildly decreased* ? 60 - 89 mL/min/1.73m2 Mildly to moderately decreased ?45 - 59 mL/min/1.73m2 Moderately to severely decreased ??30 - 44 mL/min/1.73m2 Severely decreased ?15 - 29 mL/min/1.73m2 Kidney Failure ?< 15 ??mL/min/1.73m2 *Relative to young adult level If -Macedonian multiply value by 1.16. Estimated glomerular filtration [...] was last reviewed 2015. Blood specimen (specimen) 03/22/2019 10:50 AM CDT 03/22/2019 11:39 AM CDT us Notinfile Unknown LAB BLOOD ORDERABLES Final Res ult [facility] [address] [place] [address] * Vancomycin, trough (03/22/2019 10:50 AM CDT) Vancomycin trough 14.3 10.0 - 20.0 mcg/mL [facility] Comment: Interpretive Data Desired Vancomycin trough levels are 10.0 to 20.0 mcg/mL for combined therapy with aminoglycosides (see following exceptions). Desired trough levels for specific clinical indications: - Urinary tract infections (UTI): ??5.0 mcg/mL - Methicillin Resistant staphylococcal infection: ??10.0 - 15.0 mcg/mL - Central nervous system (DIRECTOR OF STUDENT SERVICES) infection, endocarditis, ??osteomyelitis, pneumonia: ??With aminoglycoside 10.0 [...] is needed for interpretation. Blood specimen (specimen) 03/22/2019 10:50 AM CDT 03/22/2019 11:23 AM CDT Notinfile Unknown LAB BLOOD ORDERABLES Final Res ult Performing Organization Address [facility] de Phone Number [facility] [address] [place] [address] * (ABNORMAL) Protime-INR (03/22/2019 10:50 AM CDT) PT 17.3(H) 9.5 - 13.0 sec [facility] INR 1.48(H) 0.90 - 1.20 [facility] Blood specimen (specimen) 03/22/2019 10:50 AM CDT 03/22/2019 11:23 AM CDT Notinfile Unknown LAB BLOOD ORDERABLES Final Res ult Performing Organization Address [facility] Co de Phone Number [facility] [address] [place] [address] * (ABNORMAL) CBC without differential (03/22/2019 10:50 AM CDT) WBC 7.8 3.8 - 9.9 K/cumm [facility] Hgb 8.4(L) 13.0 - 17.5 g/dL [facility] Hct 30.0(L) 38.9 - 50.3 % [facility] Plt 353 150 - 400 K/cumm [facility] MPV 12.1 9.1 - 12.3 fL [facility] RBC 3.25(L) 4.30 - 5.80 M/cumm [facility] MCV 92.3 81.3 - 96.4 fL [facility] MCH 25.8(L) 27.1 - 33.3 pg [facility] MCHC 28.0(L) 32.3 - 35.7 g/dL [facility] RDW CV 16.9(H) 11.1 - 14.9 % [facility] RDW SD 57.1(H) 35.7 - 48.1 fL [facility] NRBC abs 0.00 0.00 - 0.01 K/cumm [facility] Blood specimen (specimen) 03/22/2019 10:50 AM CDT 03/22/2019 11:22 AM CDT us Notinfile Unknown LAB BLOOD ORDERABLES Final Res ult [facility] [address] [id number] * (ABNORMAL) Comprehensive metabolic panel, serum (03/22/2019 10:50 AM CDT) Sodium 142 135 - 145 mmol/L [facility] Potassium, sr 4.3 3.6 - 5.2 mmol/L [facility] Chloride 106 97 - 110 mmol/L [facility] CO2 26 22 - 32 mmol/L [facility] Anion gap 10 2 - 15 mmol/L [facility] BUN 13 8 - 25 mg/dL [facility] Creatinine 0.93 0.80 - 1.30 mg/dL [facility] Glucose 98 70 - 199 mg/dL [facility] Comment: Interpretive Data Fasting glucose >/= 126 [...] interpretive data was last revised 2017. Calcium 8.9 8.5 - 10.3 mg/dL [facility] Bilirubin, total 0.4 0.1 - 1.2 mg/dL [facility] Protein, sr 6.5 6.2 - 8.2 g/dL [facility] Albumin 3.4(L) 3.5 - 5.0 g/dL [facility] Alk phos 260(H) 40 - 130 Units/L [facility] ALT 13 7 - 55 Units/L [facility] AST 17 10 - 50 Units/L [facility] Blood specimen (specimen) 03/22/2019 10:50 AM CDT 03/22/2019 11:22 AM CDT us Notinfile Unknown LAB BLOOD ORDERABLES Final Res ult Performing Organization Address City/State/[facility] Co de Phone Number [facility] [address] [place] [address] documented in this encounter Visit Diagnoses Not on filedocumented in this encounter Care Teams Bulldozer Mechanic Relationship Specialty Start Date End Date Briana Medeiros MD [address] [place] [address] PCP - General 07/06/12 03/24/22 documented as of this encounter
--- OUTSIDE RECORDS SUMMARY | 2024-05-24 23:23 | XMS_ITS | Encounter Summary ---
Author Organization [facility] Group Address [address] [facility] [address] [place] [address] Care Team Providers Care [employer] Principal Name Role Phone Briana Medeiros MD Primary Care Provider Reason for Visit * Reason Comments Follow-up a-fib Encounter Details Date Type Department Care Team (Late st Contact Info) Description 02/21/2018 11:00 AM CDT Office Visit [facility] [address] [place] [address] Epi Lake MD [address] [facility] [address] [facility] [address] [place] [address] Chronic atrial fibrillation (CMS/HCC) (Primary Dx) Social History Tobacco Use Types Packs/Day Years Used Date Smoking Tobacco: Former Smokeless Tobacco: Never Alcohol Use Standard Drinks/Week Comments No 0 (1 standard drink = 0.6 oz pur e alcohol) Sex and Gender Information Value Date Recorded Sex Assigned at Not on file Legal Sex Male 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 Gender Identity Not on file Sexual Orientation Not on file documented as of this encounter Last Filed Vital Signs Vital Sign Reading Time Taken Comments Blood Pressure 98/58 02/21/2018 11:22 AM CDT Pulse 63 02/21/2018 11:22 AM CDT Temperature - - Respiratory Rate - - Oxygen Saturation 88% 02/21/2018 11:22 AM CDT Inhaled Oxygen Concentration - - Weight 89.8 kg (198 lb) 02/21/2018 11:22 AM CDT Height 180.3 cm (5' 11 ) 02/21/2018 11:22 AM CDT Body Mass Index 27.62 02/21/2018 11:22 AM CDT documented in this encounter Ordered Prescriptions Prescription Sig Dispense Quantity Refills Last Filled Start Date End Date metoprolol XL (TOPROL-XL) 50 mg 24 hr tabletIndications: Chronic atrial fibrillation (HCC) Take 1 tablet (50 mg total) by mouth daily. 30 tablet 11 02/21/2018 02/21/2019 documented in this encounter Progress Notes * Epi Lake MD - 02/21/2018 11:00 AM CDT [facility] 02/21/2018 Mason Keys is a 67 y.o. male [...] appointment with me was 1 year ago. The patient did have an echocardiogram done in June at the request of 1 of the hospitalists which demonstrated normal left ventricular systolic function, no significant valvular abnormality he hadmodest aortic and mitral insufficiency. The patient has not been seen in my office in a year since his last appointment. Since then he has been in the [facility] to chronic ventilator for 70s several times both at [place] and subsequently out at [facility]. 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 At no time was there any new cardiac problem identified he is in atrial fibrillation chronically. [facility] any evidence of infectious vegetations on any of his cardiac valves. Somewhat surprisingly and a slightly inappropriately the the patient's indicates that the hepatology specialist at [facility] wants my opinion as to why the patient is taking amiodarone because he was found to have liver disease while he is there and they would like him on an alternative medication for heart rate control. I did share with the patient and his that I did not prescribe the amiodarone and that [...] used in the past with which he hadgood success. It would help dramatically of we had more feedback or involvement from the physiciansat [facility] this [facility] so we could make these decisions eloina more informed fashion. I did however review with them the long standing risks and long-term toxicities of chronic amiodarone exposure which I would like to avoid. REVIEW OF SYSTEMS General ROS: negative for [...] pruritus and rash HOME MEDICATIONS Current Outpatient Prescriptions: ??? acetaminophen (TYLENOL) 325 mg tablet, Take 650 mg by mouth every 4 (four) hours as needed for pain., Disp: , Rfl: ??? albuterol (PROVENTIL,VENTOLIN) 2.5 mg/0.5 mL solution for nebulization, Take 1 mL (5 mg total) by nebulization every 6 (six) hours as needed (resp failure)., Disp: 25 each, Rfl: 0 ??? amiodarone (PACERONE) 200 mg tablet, Take 1 tablet (200 mg total) by mouth 2 (two) times a day., Disp: 60 tablet, Rfl: 0 ??? apixaban (ELIQUIS) 5 mg [...] 1 tablet (0.5 mg total) by mouth daily., Disp: 30 tablet, Rfl: 0 ??? camphor-menthol (SARNA) lotion, Apply topically as needed for itching., Disp: 222 mL, Rfl: 0 ??? chlorhexidine (PERIDEX) 0.12 % solution, Apply 5 mL to the mouth or throat 2 (two) times a day., Disp: 120 mL, Rfl: 0 ??? cyanocobalamin, vitamin B-12, 500 mcg lozenge, Take by mouth., Disp: , Rfl: ??? docusate (COLACE) liquid 50 mg/5 mL, Take 100 mg by mouth., Disp: , Rfl: ??? ergocalciferol (VITAMIN D) 50,000 unit capsule, Take 1 capsule by mouth once a week., Disp: , Rfl: 0 ??? ipratropium-albuterol (DUO-NEB) 0.5-2.5 mg/3 mL nebulizer solution, Take 3 mL by nebulization every 6 (six) hours as needed for wheezing or shortness of breath., Disp: 300 mL, Rfl: 0 ? ? lidocaine (LIDODERM) 5 %, Apply 1 patch topically daily. Remove & discard patch within 12 hours or as directed by MD., Disp: 15 patch, Rfl: 0 ??? METOPROLOL TARTRATE CAPSULE 6.25 MG, Take 2 capsules (12.5 mg total) by mouth 2 (two) times a day., Disp: 120 capsule, Rfl: 0 ??? miconazole 2 % powder, Apply topically 2 (two) times a day., Disp: 70 g, Rfl: 0 ??? ondansetron (ZOFRAN) 4 mg tablet, as needed., Disp: , Rfl: 3 ??? oxyCODONE (ROXICODONE) 5 mg immediate release tablet, Take 1 tablet (5 mg total) by mouth every4 (four) hours as needed for pain., Disp: 30 tablet, Rfl: 0 ??? oxygen, 1 L., Disp: , Rfl: ??? pantoprazole DR (PROTONIX) 40 mg EC tablet, Take 1 tablet (40 mg total) by mouth daily., Disp: 30 tablet, Rfl: 0 ??? polyethylene glycol (MIRALAX) 17 [...] for component: LABALBU PHYSICAL EXAM Vitals BP 98/58 (BP Location: Left arm, Patient Position: Sitting) Pulse 63 Ht 180.3 cm (5' 11 ) Wt 89.8 kg (198 lb) SpO2 (!) 88% BMI 27.62 kg/m?? Physical Examination: General appearance - alert, [...] this visit: Chronic atrial fibrillation (CMS/HCC) PLAN/RECOMMENDATIONS Somewhat difficult position as described above but I would recommend discontinuing amiodarone and starting metoprolol succinate 50 mg daily to start with He needs to be seen in the office for follow-up in a couple of weeks to make sure his heart rate control is adequate Epi Lake MD documented in this encounter Plan of Treatment Not on file documented as of this encounter Visit Diagnoses Diagnosis Chronic atrial fibrillation (HCC)- Primary Atrial fibrillation documented in this encounter Discontinued Medications Medication Sig Discontinue Reason Start Date End Da te zolpidem (AMBIEN) 5 mg tabletIndications:Sleep -Onset Insomnia Take 1 tablet (5 mg total) by mouth nightly as needed for sleep. Discontinued by another clinician 11/09/2017 02/21/2018 amiodarone (PACERONE) 200 mg tabletIndications:Cardi oversion of Atrial Fibrillation Take 1 tablet (200 mg total) by mouth 2 (two) times a day. 2017 02/21/2018 METOPROLOL TARTRATE CAPSULE 6.25 MG Take 2 capsules (12.5 mg total) by mouth 2 (two) times a day. 11/09/2017 02/21/2018 documented as of this encounter Historical Medications * This list may reflect changes made after this encounter. triamcinolone (KENALOG) 0.1 % cream APPLY A THIN LAYER TOPICALLY FOUR TIMES DAILY TO THE AFFECTED AREA 3 02/01/2018 oxygenIndication s:Dyspnea 1 L ondansetron (ZOFRAN) 4 mg tablet as needed. 3 02/01/2018 0 ERGOCALCIFEROL, VITAMIN D2, ORAL Take 1 capsule by mouth once a week. 0 02/02/2018 4 docusate (COLACE) liquid 50 mg/5 mLIndications:co nstipation Take 100 mg by mouth. 09/20/2017 0 added in this encounter Care Teams [employer] Principal Relationship Specialty Start Date End Date Briana Medeiros MD [address] [place] [address] PCP - General 07/06/12 03/24/22 documented as of this encounter
--- OUTSIDE RECORDS SUMMARY | 2024-05-24 23:23 | XMS_ITS | Encounter Summary ---
Author Organization [facility] Medical Group Address [address] [facility] [address] [place] [address] Care Team Providers Care Aircraft Life Support Fitter Name Role Phone Briana Medeiros MD Primary Care Provider [phone] Reason for Visit * Reason Comments Follow-up PER BECCA 2-3 [place]AM WIL[place] Encounter Details Date Type Department Care Team (Late st Contact Info) Description 06/08/2018 1:30 PM GIS PROGRAMMER [facility] Visit [facility] [address] [place] [id number] Epi Lake MD [address] [facility] [address] [facility] [address] [place] [address] Chronic atrial fibrillation (CMS/HCC) (Primary Dx) Social History Tobacco Use Types Packs/Day Years Used Date Smoking Tobacco: Former Smokeless Tobacco: Never Alcohol Use Standard Drinks/Week Comments No 0 (1 standard drink = 0.6 oz pur e alcohol) Sex and Gender Information Value Date Recorded Sex Assigned at Not on file Legal Sex Male 11:24 AM GIS PROGRAMMER Gender Identity Not on file Sexual Orientation Not on file documented as of this encounter Last Filed Vital Signs Vital Sign Reading Time Taken Comments Blood Pressure 108/68 06/08/2018 1:44 PM GIS PROGRAMMER Pulse 66 06/08/2018 1:44 PM GIS PROGRAMMER Temperature - - Respiratory Rate - - Oxygen Saturation 93% 06/08/2018 1:44 PM GIS PROGRAMMER Inhaled Oxygen Concentration - - Weight 95.7 kg (211 lb) 06/08/2018 1:44 PM GIS PROGRAMMER Height 180.3 cm (5' 11 ) 06/08/2018 1:44 PM GIS PROGRAMMER Body Mass Index 29.43 06/08/2018 1:44 PM GIS PROGRAMMER documented in this encounter Progress Notes * Epi Lake MD - 06/08/2018 1:30 PM CST [facility] 06/08/2018 Mason Keys is a 67 y.o. male [...] ventilator support. Physicians at the [facility] had placed him on amiodarone for simple rate control. After I saw the patient in follow-up in February of 2018 I transitioned him back to standard beta-fe treatment because the gas pumping station supervisor at the [facility] did not want him on the amiodarone which is not a drug that I started in the 1st place. He presents today for scheduled follow-up he last saw the nurse practitioner couple of months ago and was doing well with beta-fe and Eliquis treatment. He is doing very well with this rate control and anticoagulation regimen in seems to be tolerating this very well he was also found to have sleep apnea when he was at the [facility] and is doing well with BiPAP treatment. REVIEW OF SYSTEMS General ROS: negative for [...] at 6 month intervals. Epi Lake MD PROGRAMMER documented in this encounter Plan of Treatment Not on file documented as of this encounter Visit Diagnoses Diagnosis Chronic atrial fibrillation (HCC)- Primary Atrial fibrillation documented in this encounter Care Teams Aircraft Life Support Fitter Relationship Specialty Start Date End Date rBiana Medeiros MD [address] [place] [address] PCP - General 07/06/12 03/24/22 documented as of this encounter
--- OUTSIDE RECORDS SUMMARY | 2024-05-24 23:23 | XMS_ITS | Encounter Summary ---
Author Organization [facility] Medical [facility] Address [address] [facility] [address] [place] [address] Care Team Providers Care Supervisor Steel Division Name Role Phone Briana Medeiros MD Primary Care Provider [phone] Reason for Visit * Reason Comments Follow-up 6 mo fu a-fib Encounter Details Date Type Department Care Team (Late st Contact Info) Description 06/26/2019 2:00 PM UNDERWRITING SALES REPRESENTATIVE Office Visit [facility] Cardiology [address] [facility] [address] [place] [address] Epi Lake MD [address] [facility] [address] [place] [address] Chronic atrial fibrillation (Primary Dx) Social History Tobacco Use Types Packs/Day Years Used Date Smoking Tobacco: Former Smokeless Tobacco: Never Alcohol Use Standard Drinks/Week Comments No 0 (1 standard drink = 0.6 oz pur e alcohol) Sex and Gender Information Value Date Recorded Sex Assigned at Not on file Legal Sex Male 11:24 AM UNDERWRITING SALES REPRESENTATIVE Gender Identity Not on file Sexual Orientation Not on file documented as of this encounter Last Filed Vital Signs Vital Sign Reading Time Taken Comments Blood Pressure 110/62 06/26/2019 2:24 PM UNDERWRITING SALES REPRESENTATIVE Pulse 79 06/26/2019 2:24 PM UNDERWRITING SALES REPRESENTATIVE Temperature - - Respiratory Rate - - Oxygen Saturation 97% 06/26/2019 2:24 PM UNDERWRITING SALES REPRESENTATIVE Inhaled Oxygen Concentration - - Weight 92.1 kg (203 lb) 06/26/2019 2:24 PM UNDERWRITING SALES REPRESENTATIVE Height 180.3 cm (5' 11 ) 06/26/2019 2:24 PM UNDERWRITING SALES REPRESENTATIVE Body Mass Index 28.31 06/26/2019 2:24 PM UNDERWRITING SALES REPRESENTATIVE documented in this encounter Progress Notes * Epi Lake MD - 06/26/2019 2:00 PM CST [facility] 06/26/2019 Mason Keys is a 68 y.o. male [...] off the ventilator support. Physicians at the [facility] had placed him on amiodarone for simple rate control. After I saw the patient in follow-up in February of 2018 I transitioned him back to standard beta-fe treatment because the customer service manager at the [facility] did not want him on the amiodarone which is not a drug that I started in the 1st place. He returns today for scheduled six-month office follow-up. He is being seen at 6 month intervals atthis time and continues to take systemic anticoagulation with apixaban. The patient was hospitalized a couple of times this since his previous appointment with me. That was not noted on the office appointment for today. In any event the hospital records don't really indicate evidence of a significant cardiac problem. He was hospitalized with some shortness of breath and felt to have pneumonia in March of 2019. He also apparently had hip surgery performed at [facility] in [place]. The patient indicates that someone in the hospital told him that he had congestive heart failure when he was there but I was not involved in the evaluation and I told the patient that other than atr ial fibrillation he has no reason to have congestive heart failure. She is certainly he could have had some hemodynamic decompensation because of the fact that he is in chronic atrial fibrillation. An echocardiogram that was done in the hospital did not show any new significant cardiac pathology. 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 Apparently the infected hardware is not going to be removed. REVIEW OF SYSTEMS General ROS: negative for [...] a week., Disp: , Rfl: 0 ??? miconazole 2 % powder, Apply topically 2 (two) times a day., Disp: 70 g, Rfl: 0 ??? omeprazole (PriLOSEC) 40 mg capsule, Take 40 mg by mouth daily., Disp: , Rfl: ??? ondansetron (ZOFRAN) 4 mg tablet, as needed., Disp: , Rfl: 3 ??? oxygen, 1 L., Disp: , Rfl: [...] orders for this visit: Chronic atrial fibrillation PLAN/RECOMMENDATIONS Continue current rate control and anticoagulation regimen and will continue to see him at 6 month intervals. Epi Lake MD RWRITING SALES REPRESENTATIVE documented in this encounter Plan of Treatment Not on file documented as of this encounter Visit Diagnoses Diagnosis Chronic atrial fibrillation (HCC)- Primary Atrial fibrillation documented in this encounter Discontinued Medications Medication Sig Discontinue Reason Start Date End Da te atorvastatin (LIPITOR) 20 mg tablet Take 1 tablet (20 mg total) by mouth daily. Therapy completed 11/09/2017 06/26/2019 docusate (COLACE) liquid 50 mg/5 mLIndications:constipati on Take 100 mg by mouth. Therapy completed 09/20/2017 06/26/2019 documented as of this encounter Historical Medications * This list may reflect changes made after this encounter. benzonatate (TESSALON) 200 mg capsule Take 1 capsule (200 mg total) by mouth 3 (three) times a day as needed for cough doxycycline (VIBRAMYCIN) 100 mg capsule Take 1 tablet/capsul e (100 mg total) by mouth daily potassium chloride (KLOR-CON) 20 mEq packet Take 1 packet (20 mEq total) by mouth daily 03/27/2024 metoprolol linda-hydrochlorothi az 50-12.5 mg tablet extended release 24 hr Take 2 tablets by mouth daily 08/15/2020 added in this encounter Care Teams Supervisor Steel Division Relationship Specialty Start Date End Date Briana Medeiros MD [address] [place] [address] PCP - General 07/06/12 03/24/22 documented as of this encounter
--- OUTSIDE RECORDS SUMMARY | 2024-05-24 23:23 | XMS_ITS | Encounter Summary ---
Author Organization [facility] Address [address] [place] [address] Care Team Providers Care Hot Knife Foxing Cutter Name Role Phone Briana Medeiros MD Primary Care Provider [phone] Encounter Details Date Type Department Care Team (Late st Contact Info) Description 04/04/2019 Orders Only [facility] Cardiology [address] [place] [address] Parth Alonso MD [address] [address] Social History Tobacco Use Types Packs/Day Years Used Date Smoking Tobacco: Former Smokeless Tobacco: Never Alcohol Use Standard Drinks/Week Comments No 0 (1 standard drink = 0.6 oz pur e alcohol) Sex and Gender Information Value Date Recorded Sex Assigned at Not on file Legal Sex Male 11:24 AM RECORDING ENGINEER Gender Identity Not on file Sexual Orientation Not on file documented as of this encounter Plan of Treatment Not on file documented as of this encounter Procedures Procedure Name Priority Date/Time Associated Diagnosis Comments CARDIOLOGY DOCUMENT SCAN Routine 04/04/2019 documented in this encounter Results * SCAN - CARDIOLOGY (04/04/2019) Anatomical Region Laterality Modality Other Parth Alonso MD CV CARDIAC SERVICES PROC EDURES Final Result documented in this encounter Visit Diagnoses Not on filedocumented in this encounter Care Teams Hot Knife Foxing Cutter Relationship Specialty Start Date End Date Briana Medeiros MD [address] [place] [address] PCP - General 07/06/12 03/24/22 documented as of this encounter
--- OUTSIDE RECORDS SUMMARY | 2024-05-24 23:24 | XMS_ITS | Encounter Summary ---
Author Organization [facility] Healthcare Address [address] [place] [address] Care Team Providers Care Superintendent [employer] Name Role Phone Briana Medeiros MD Primary Care Provider [phone] Encounter Details Date Type Department Care Team (Latest Contact Info) Description 10/24/2017 6:32 PM CDT - 2017 2:31 PM CDT Hospital Encounter [facility] Physical Medicine and Rehabilitation [address] [place] [address] Rachna Burt MD [address] [facility] [address] [place] [address] Discharge Disposition: Discharge to SNF Social History Tobacco Use Types Packs/Day Years Used Date Smoking Tobacco: Former Smokeless Tobacco: Never Alcohol Use Standard Drinks/Week Comments No 0 (1 standard drink = 0.6 oz pur e alcohol) Sex and Gender Information Value Date Recorded Sex Assigned at Not on file Legal Sex Male 11:24 AM [employer] Gender Identity Not on file Sexual Orientation Not on file documented as of this encounter Last Filed Vital Signs Vital Sign Reading Time Taken Comments Blood Pressure 112/61 2017 8:35 AM CDT Pulse 74 2017 8:35 AM CDT Temperature 36.3 ??C (97.4 ??F) 2017 3:50 AM CD T Respiratory Rate 16 2017 3:50 AM CDT Oxygen Saturation 100% 2017 8:35 AM CDT Inhaled Oxygen Concentration - - Weight 93.2 kg (205 lb 7.5 oz) 11/06/2017 3:20 P M CDT Height 180.3 cm (5' 11 ) 10/24/2017 8:00 PM CDT Body Mass Index 28.66 10/24/2017 8:00 PM CDT documented in this encounter Discharge Summaries * Rachna Burt MD - 2017 8:08 AM CDT Inpatient Discharge Summary BRIEF OVERVIEW Admitting Provider: Rachna Burt MD Discharge Provider: Rachna Burt MD Primary Care Physician at Discharge: Briana Medeiros MD [phone] Admission Date: 10/24/2017 Discharge Date: 2017 Primary Discharge Diagnosis: Debility Secondary Discharge Diagnosis: Chronic atrial fibrillation (CMS/HCC) Former smoker COPD (chronic obstructive pulmonary disease) ([facility]) Hypercapnic respiratory failure ([facility]) Diskitis Pneumonia Hyponatremia Gluteal ulcer DETAILS OF HOSPITAL STAY Presenting Problem/History of Present Illness: Debility following respiratory failure Hospital Course: Pt is a 66 yr old male with a PMH of COPD, A Fib,on long-term oral anticoagulation;hypertension, diabetes who presented to [facility] with respiratory failure. He orginally presented to an outside hospital on 07/29/17 for an L1 debridement associate d with an abscess. His subsequent medical course was complicated my MRSA empyema requiring chest tube placement with prolonged antibiotics, trachestomy for delayed weaning, PEG placement and mucus plugging. [facility] . He is participating in limited therapy. He was able to stand for a short period of time. He has been decannulated, in no respiratory distress and using O2 per nasal cannula. He is eating a Regulardiet with nectar thickened liquids. He has a wo und on his back on the left side that is being followed by wound care. Recently he was placed on Bactrium for Stenotrophomonas maltophiliaand. He has good family support at home. He was transferred to the inpatient rehabilitation unit at [facility] where he underwent PT,OT, SP to help improve his functional status and improve his gait,balance, and transfers to help move him more towards independent level of functioning. The patient oral intake improved. His tube feeds were weaned off and his PEG wasremoved by Dr. Sanderson. He had a small area of dehiscence along the left incision. Wound care evaluated the patient and dressing changes using Santyl were continues. The patient remained motivated. Nia Espino followed him during rehab. He was weaned off the O2 and the BIPAP. Active Issues Requiring Follow-up: Follow up with thoracic surgery Test Results Pending at Discharge: Per [facility] Operative Procedures Performed: Removal of PEG Other Procedures: None Pertinent Test Results: Per [facility] Discharge Details Physical Exam at Discharge: Discharge Condition: good Pulse: 71 Resp: 16 BP: 125/80 Temp: 36.3 ??C (97.4 ??F) Weight: 93.2 kg (205 lb 7.5 oz) Pertinent Exam Findings at Discharge: General appearance Alert, no distress Head Normocephalic, without obvious abnormality, atraumatic ? Throat Oropharynx clear Neck Supple. Trach stoma healing ? Lungs Clear to auscultation bilaterally, diminished bases Chest wall +tenderness Heart Regular rate and rhythm Abdomen Soft, non-tender. Bowel sounds normal. G tube site dressed Extremities + edema Neurologic Diffusely weak Discharge Disposition: Discharge to an IP Rehab facility Code Status at Discharge: Full code Discharge Instructions: Diet Instructions Adult Discharge Diet Diet Type: Return to previous diet Instructions for follow-up: Adult Diet Regular: General/Glucerna Shake - Chocolate Adult Discharge Diet Diet Type: Return to previous diet Adult Discharge Diet Diet Type: Return to previous diet Other Instructions Post-Discharge Dressing Care: Change daily. Change Dressing: Change daily. Instructions for follow-up: Chest incision and toe Post-Discharge Dressing Care: Change daily. Change Dressing: Change daily. Special Instructions Daily PT and OT Special Instructions PT.OT.SP at SNF Discharge Medications: Your medication list START taking these medications ascorbic acid 500 mg tablet,chewable Commonly known as: VITAMIN C Take 1 tablet/chew tab (500 mg total) by mouth 2 (two) times a day. bacitracin 500 unit/gram ointment Apply 1 application topically daily. baclofen 10 mg tablet Commonly known as: LIORESAL Take 1 tablet (10 mg total) by mouth 3 (three) times a day with meals. camphor-menthol lotion Commonly known as: SARNA Apply topically as needed for itching. collagenase ointment Apply topically daily. docusate sodium 100 mg capsule Commonly known as: COLACE Take 1 capsule (100 mg total) by mouth 2 (two) times a day. Replaces: docusate 10 mg/mL liquid ergocalciferol 50,000 unit capsule Commonly known as: VITAMIN D Take 1 capsule (50,000 Units total) by mouth once a week. ipratropium-albuterol 0.5-2.5 mg/3 mL nebulizer solution Commonly known as: DUO-NEB Take 3 mL by nebulization every 6 (six) hours as needed for wheezing or shortness of breath. lidocaine 5 % Commonly known as: LIDODERM Apply 1 patch topically daily. Remove & discard patch within 12 hours or as directed by MD. miconazole 2 % powder Apply topically 2 (two) times a day. zinc sulfate 220 (50) mg capsule Commonly known as: ZINCATE Take 1 capsule (220 mg total) by mouth daily. CHANGE how you take these medications albuterol 2.5 mg/0.5 mL solution for nebulization Commonly known as: PROVENTIL,VENTOLIN Take 1 mL (5 mg total) by nebulization every 6 (six) hours as needed (resp failure). What changed: reasons to take this aspirin 81 mg tablet Commonly known as: ASPIRIN LOW DOSE Take 1 tablet (81 mg total) by mouth daily. What changed: how to take this when to take this Another medication with the same name was removed. Continue taking this medication, and follow the directions you see here. bisacodyl 10 mg suppository Commonly known as: DULCOLAX Insert 1 suppository (10 mg total) into the rectum daily as needed for constipation. What changed: when to take this reasons to take this budesonide-formoterol 80-4.5 mcg/actuation inhaler Commonly known as: SYMBICORT Inhale 1 puff 2 (two) times a day. Rinse mouth with water after use to reduce aftertaste and incidence of candidiasis. Do not swallow. What changed: additional instructions bumetanide 0.5 mg tablet Commonly known as: BUMEX Take 1 tablet (0.5 mg total) by mouth daily. What changed: how much to take diphenhydrAMINE 25 mg capsule Commonly known as: BENADRYL Take 1 tablet/capsule (25 mg total) by mouth 4 (four) times a day as needed for itching. What changed: when to take this METOPROLOL TARTRATE CAPSULE 6.25 MG Take 2 capsules (12.5 mg total) by mouth 2 (two) times a day. What changed: medication strength oxyCODONE 5 mg immediate release tablet Commonly known as: ROXICODONE Take 1 tablet (5 mg total) by mouth every 4 (four) hours as needed for pain. What changed: reasons to take this Another medication with the same name was removed. Continue taking this medication, and follow the directions you see here. pantoprazole DR 40 mg EC tablet Commonly known as: PROTONIX Take 1 tablet (40 mg total) by mouth daily. What changed: how to take this when to take this polyethylene glycol 17 gram packet Commonly known as: MIRALAX Take 17 g by mouth 2 (two) times a day as needed (constipation). What changed: when to take this reasons to take this CONTINUE taking these medications acetaminophen 325 mg tablet Commonly known as: TYLENOL amiodarone 200 mg tablet Commonly known as: PACERONE Take 1 tablet (200 mg total) by mouth 2 (two) times a day. apixaban 5 mg tablet Commonly known as: ELIQUIS Take 1 tablet (5 mg total) by mouth 2 (two) times a day. atorvastatin 20 mg tablet Commonly known as: LIPITOR Take 1 tablet (20 mg total) by mouth daily. chlorhexidine 0.12 % solution Commonly known as: PERIDEX Apply 5 mL to the mouth or throat 2 (two) times a day. cyanocobalamin (vitamin B-12) 500 mcg lozenge ondansetron 4 mg tablet Commonly known as: ZOFRAN Take 1 tablet (4 mg total) by mouth every 4 (four) hours as needed for nausea or vomiting. senna 8.6 mg tablet Commonly known as: SENOKOT Take 1 tablet by mouth daily. tamsulosin 0.4 mg extended release capsule Commonly known as: FLOMAX Take 1 capsule (0.4 mg total) by mouth nightly. zolpidem 5 mg tablet Commonly known as: AMBIEN Take 1 tablet (5 mg total) by mouth nightly as needed for sleep. STOP taking these medications diclofenac DR 75 mg EC tablet Commonly known as: VOLTAREN docusate 10 mg/mL liquid Commonly known as: COLACE Replaced by: docusate sodium 100 mg capsule doxepin 25 mg capsule Commonly known as: SINEquan famotidine 20 mg tablet Commonly known as: PEPCID ferrous fumarate 325 mg (106 mg iron) tablet furosemide 20 mg tablet Commonly known as: LASIX insulin lispro 100 unit/mL injection Commonly known as: HumaLOG LORazepam 2 mg/mL injection Commonly known as: ATIVAN metFORMIN 500 mg tablet Commonly known as: GLUCOPHAGE potassium chloride ER 10 mEq CR tablet Commonly known as: KLOR-CON,K-DUR sulfamethoxazole-trimethoprim 800-160 mg per tablet Commonly known as: BACTRIM,SEPTRA Outpatient Follow-Up: Future Appointments Date Time Provider Department Center 02/21/2018 11:00 AM [place] [facility] Sirisha Corrigan documented in this encounter Medications at Time of Discharge acetaminophen (TYLENOL) 325 mg tablet Take 2 tablets (650 mg total) by mouth every 4 (four) hours as needed for pain albuterol (PROVENTIL,VENTOLI N) 2.5 mg/0.5 mL solution for nebulizationIndica tions:Bronchospasm Prevention Take 1 mL (5 mg total) by nebulization every 6 (six) hours as needed (resp failure). 25 each 8 apixaban (ELIQUIS) 5 mg tabletIndications: atrial fibrillation,VTE Prophylaxis Take 1 tablet (5 mg total) by mouth 2 (two) times a day. 60 tablet 8 aspirin (ASPIRIN LOW DOSE) 81 mg tabletIndications: Myocardial Reinfarction Prevention Take 1 tablet (81 mg total) by mouth daily. 30 tablet 8 baclofen (LIORESAL) 10 mg tablet Take 1 tablet (10 mg total) by mouth 3 (three) times a day with meals. 90 tablet 8 bumetanide (BUMEX) 0.5 mg tablet Take 1 tablet (0.5 mg total) by mouth daily. 30 tablet 8 camphor-menthol (SARNA) lotion Apply topically as needed for itching. 222 mL 8 miconazole 2 % powder Apply topically 2 (two) times a day. 70 g 8 tamsulosin (FLOMAX) 0.4 mg extended release capsule Take 1 capsule (0.4 mg total) by mouth nightly. 30 capsule 8 ascorbic acid (VITAMIN C) 500 mg tablet,chewable Take 1 tablet/chew tab (500 mg total) by mouth 2 (two) times a day. 60 tablet/chew tab 8 12/10/19 18 bacitracin 500 unit/gram ointment Apply 1 application topically daily. 1 packet 8 12/10/19 18 bisacodyl (DULCOLAX) 10 mg suppository Insert 1 suppository (10 mg total) into the rectum daily as needed for constipation. 12 suppository 8 12/10/19 18 collagenase ointment Apply topically daily. 45 g 8 12/10/19 18 diphenhydrAMINE (BENADRYL) 25 mg capsule Take 1 tablet/capsule (25 mg total) by mouth 4 (four) times a day as needed for itching. 30 capsule 8 12/10/19 18 docusate sodium (COLACE) 100 mg capsuleIndications :constipation Take 1 capsule (100 mg total) by mouth 2 (two) times a day. 60 capsule 8 12/10/19 18 ergocalciferol (VITAMIN D) 50,000 unit capsuleIndications :Vitamin D Deficiency Take 1 capsule (50,000 Units total) by mouth once a week. 4 capsule 8 12/10/19 18 ondansetron (ZOFRAN) 4 mg tabletIndications: Prevention of Post-Operative Nausea and Vomiting Take 1 tablet (4 mg total) by mouth every 4 (four) hours as needed for nausea or vomiting. 20 tablet 8 12/10/19 18 senna (SENOKOT) 8.6 mg tablet Take 1 tablet by mouth daily. 30 tablet 8 12/10/19 18 zinc sulfate (ZINCATE) 220 (50) mg capsule Take 1 capsule (220 mg total) by mouth daily. 30 capsule 8 12/10/19 18 amiodarone (PACERONE) 200 mg tabletIndications: Cardioversion of Atrial Fibrillation Take 1 tablet (200 mg total) by mouth 2 (two) times a day. 60 tablet 8 02/22/20 18 atorvastatin (LIPITOR) 20 mg tablet Take 1 tablet (20 mg total) by mouth daily. 30 tablet 8 06/26/19 20 budesonide-formote rol (SYMBICORT) 80-4.5 mcg/actuation inhalerIndications :Bronchospasm Prevention with COPD Inhale 1 puff 2 (two) times a day. Rinse mouth with water after use to reduce aftertaste and incidence of candidiasis. Do not swallow. 1 Inhaler 8 09/25/19 22 chlorhexidine (PERIDEX) 0.12 % solutionIndication s:Mouth Infection Prevention Apply 5 mL to the mouth or throat 2 (two) times a day. 120 mL 8 03/06/20 20 cyanocobalamin, vitamin B-12, 500 mcg lozenge Take by mouth. 03/27/20 24 docusate (COLACE) liquid 50 mg/5 mLIndications:cons tipation Take 100 mg by mouth. 8 06/26/19 20 ipratropium-albute rol (DUO-NEB) 0.5-2.5 mg/3 mL nebulizer solutionIndication s:Chronic Obstructive Pulmonary Disease with Bronchospasms Take 3 mL by nebulization every 6 (six) hours as needed for wheezing or shortness of breath. 300 mL 8 03/13/20 18 lidocaine (LIDODERM) 5 %Indications:Posth erpetic Neuralgia Apply 1 patch topically daily. Remove & discard patch within 12 hours or as directed by . 15 patch 8 12/20/19 19 METOPROLOL TARTRATE CAPSULE 6.25 MG Take 2 capsules (12.5 mg total) by mouth 2 (two) times a day. 120 capsule 8 02/22/20 18 oxyCODONE (ROXICODONE) 5 mg immediate release tabletIndications: Pain Take 1 tablet (5 mg total) by mouth every 4 (four) hours as needed for pain. 30 tablet 8 12/20/[address] (PROTONIX) 40 mg EC tabletIndications: Stress Ulcer Prophylaxis,GI prophylaxis Take 1 tablet (40 mg total) by mouth daily. 30 tablet 8 03/13/20 18 polyethylene glycol (MIRALAX) 17 gram packet Take 17 g by mouth 2 (two) times a day as needed (constipation). 15 packet 8 03/27/20 24 zolpidem (AMBIEN) 5 mg tabletIndications: Sleep-Onset Insomnia Take 1 tablet (5 mg total) by mouth nightly as needed for sleep. 30 tablet 8 02/22/20 18 documented as of this encounter Ordered Prescriptions Prescription Sig Dispense Quantity Refills Last Filled Start Date End Date baclofen (LIORESAL) 10 mg tablet Take 1 tablet (10 mg total) by mouth 3 (three) times a day with meals. 90 tablet 8 albuterol (PROVENTIL,VENTOLI N) 2.5 mg/0.5 mL solution for nebulizationIndica tions:Bronchospasm Prevention Take 1 mL (5 mg total) by nebulization every 6 (six) hours as needed (resp failure). 25 each 8 miconazole 2 % powder Apply topically 2 (two) times a day. 70 g 8 camphor-menthol (SARNA) lotion Apply topically as needed for itching. 222 mL 8 tamsulosin (FLOMAX) 0.4 mg extended release capsule Take 1 capsule (0.4 mg total) by mouth nightly. 30 capsule 8 bumetanide (BUMEX) 0.5 mg tablet Take 1 tablet (0.5 mg total) by mouth daily. 30 tablet 8 aspirin (ASPIRIN LOW DOSE) 81 mg tabletIndications: Myocardial Reinfarction Prevention Take 1 tablet (81 mg total) by mouth daily. 30 tablet 8 apixaban (ELIQUIS) 5 mg tabletIndications: atrial fibrillation,VTE Prophylaxis Take 1 tablet (5 mg total) by mouth 2 (two) times a day. 60 tablet 8 oxyCODONE (ROXICODONE) 5 mg immediate release tabletIndications: Pain Take 1 tablet (5 mg total) by mouth every 4 (four) hours as needed for pain. 30 tablet 8 12/20/19 19 amiodarone (PACERONE) 200 mg tabletIndications: Cardioversion of Atrial Fibrillation Take 1 tablet (200 mg total) by mouth 2 (two) times a day. 60 tablet 8 02/22/20 18 zinc sulfate (ZINCATE) 220 (50) mg capsule Take 1 capsule (220 mg total) by mouth daily. 30 capsule 8 12/10/19 18 lidocaine (LIDODERM) 5 %Indications:Posth erpetic Neuralgia Apply 1 patch topically daily. Remove & discard patch within 12 hours or as directed by MD. 15 patch 8 12/20/19 19 ipratropium-albute rol (DUO-NEB) 0.5-2.5 mg/3 mL nebulizer solutionIndication s:Chronic Obstructive Pulmonary Disease with Bronchospasms Take 3 mL by nebulization every 6 (six) hours as needed for wheezing or shortness of breath. 300 mL 8 03/13/20 18 ergocalciferol (VITAMIN D) 50,000 unit capsuleIndications :Vitamin D Deficiency Take 1 capsule (50,000 Units total) by mouth once a week. 4 capsule 8 12/10/19 18 collagenase ointment Apply topically daily. 45 g 8 12/10/19 18 bacitracin 500 unit/gram ointment Apply 1 application topically daily. 1 packet 8 12/10/19 18 ascorbic acid (VITAMIN C) 500 mg tablet,chewable Take 1 tablet/chew tab (500 mg total) by mouth 2 (two) times a day. 60 tablet/chew tab 8 12/10/19 18 zolpidem (AMBIEN) 5 mg tabletIndications: Sleep-Onset Insomnia Take 1 tablet (5 mg total) by mouth nightly as needed for sleep. 30 tablet 8 02/22/20 18 senna (SENOKOT) 8.6 mg tablet Take 1 tablet by mouth daily. 30 tablet 8 12/10/19 18 polyethylene glycol (MIRALAX) 17 gram packet Take 17 g by mouth 2 (two) times a day as needed (constipation). 15 packet 8 03/27/[address] (PROTONIX) 40 mg EC tabletIndications: Stress Ulcer Prophylaxis,GI prophylaxis Take 1 tablet (40 mg total) by mouth daily. 30 tablet 8 03/13/20 18 ondansetron (ZOFRAN) 4 mg tabletIndications: Prevention of Post-Operative Nausea and Vomiting Take 1 tablet (4 mg total) by mouth every 4 (four) hours as needed for nausea or vomiting. 20 tablet 8 12/10/19 18 METOPROLOL TARTRATE CAPSULE 6.25 MG Take 2 capsules (12.5 mg total) by mouth 2 (two) times a day. 120 capsule 8 02/22/20 18 docusate sodium (COLACE) 100 mg capsuleIndications :constipation Take 1 capsule (100 mg total) by mouth 2 (two) times a day. 60 capsule 8 12/10/19 18 diphenhydrAMINE (BENADRYL) 25 mg capsule Take 1 tablet/capsule (25 mg total) by mouth 4 (four) times a day as needed for itching. 30 capsule 8 12/10/19 18 chlorhexidine (PERIDEX) 0.12 % solutionIndication s:Mouth Infection Prevention Apply 5 mL to the mouth or throat 2 (two) times a day. 120 mL 8 03/06/20 20 budesonide-formote rol (SYMBICORT) 80-4.5 mcg/actuation inhalerIndications :Bronchospasm Prevention with COPD Inhale 1 puff 2 (two) times a day. Rinse mouth with water after use to reduce aftertaste and incidence of candidiasis. Do not swallow. 1 Inhaler 8 09/25/19 22 bisacodyl (DULCOLAX) 10 mg suppository Insert 1 suppository (10 mg total) into the rectum daily as needed for constipation. 12 suppository 8 12/10/19 18 atorvastatin (LIPITOR) 20 mg tablet Take 1 tablet (20 mg total) by mouth daily. 30 tablet 8 06/26/19 20 documented in this encounter Discharge Disposition Disposition Code Departure Means Destination Discharge to [facility] documented in this encounter Progress Notes * Александр Espino Jr., - 2017 7:50 AM CDT Pulmonary / Critical Care Daily Progress Chief Complaint/HPI/Hospital Course: Good night. Comfortable on room air. Continues to do well without BiPAP. Still with some edema on exam. Standing with assistance but not taking many steps; still very weak. 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 Peg tube was removed November 08.Looks great. [facility] today. Review of Systems: Review of Systems Constitutional: Negative for chills, fatigue and fever. HENT: Negative for congestion, sore throat and trouble swallowing. Respiratory: Negative for cough, chest tightness, shortness of breath and wheezing. Cardiovascular: Negative for chest pain and leg swelling. Gastrointestinal: Negative for diarrhea, nausea and vomiting. Genitourinary: Negative for dysuria and hematuria. Neurological: Positive for weakness. Negative for dizziness and headaches. Psychiatric/Behavioral: Negative for behavioral problems and sleep disturbance. Temp: [36.3 ??C (97.4 ??F)] 36.3 ??C (97.4 ??F) Pulse: [71-78] 71 Resp: [16-18] 16 BP: (98-125)/(55-80) 125/80 I/O last 2 completed shifts: In: 720 [P.O.:720] Out: 500 [Urine:500] No intake/output data recorded. Oxygen / Pulmonary Events Vent settings for last 24 hours: Oxygen Therapy SpO2: 100 % Pulse Oximetry Type: Intermittent Patient Activity: At rest O2 Therapy: None (Room air) O2 Del Method: CPAP/Bi-PAP mask FiO2 (%): 35 % O2 Flow Rate (L/min): 2 L/min] Physical exam: Physical Exam Constitutional: He is oriented to person, place, and time. He appears well- developed. No distress. HENT: Head: Normocephalic. Mouth/Throat: Oropharynx is clear and moist. Eyes: Pupils are equal, round, and reactive to light. Right eye exhibits no discharge. Left eye exhibits no discharge. Cardiovascular: Regular rhythm and normal heart sounds. Tachycardia present. Pulmonary/Chest: Effort normal and breath sounds normal. He has no wheezes. He has no rales. Abdominal: There is no rebound and no guarding. Musculoskeletal: He exhibits edema. Neurological: He is alert and oriented to person, place, and time. Psychiatric: He has a normal mood and affect. Current Facility-Administered Medications: ??? acetaminophen (TYLENOL) tablet 650 mg, 650 mg, oral, Q4H PRN, Rachna Burt MD, 650 mg at 11/09/17 1424 ??? albuterol (PROVENTIL,VENTOLIN) 2.5 mg/0.5 mL nebulizer solution 5 mg, 5 mg, nebulization, Q6H PRN, Rachna Burt MD ??? amiodarone (PACERONE) tablet 200 mg, 200 mg, oral, BID, Rachna Burt MD, 200 mg at ??? apixaban (ELIQUIS) tablet 5 mg, 5 mg, oral, BID, Rachna Burt MD, 5 mg at 11/09/171945 ??? ascorbic acid (VITAMIN C) tablet/chewable tablet 500 mg, 500 mg, oral, BID, Rachna Burt MD, 500 mg at 11/09/171945 ??? aspirin enteric coated tablet 81 mg, 81 mg, oral, Daily, Rachna Burt MD, 81 mg at ??? atorvastatin (LIPITOR) tablet 20 mg, 20 mg, oral, Daily, Rachna Burt MD, 20 mg at ??? bacitracin 500 unit/gram ointment packet 1 application, 1 application, topical, Daily, Nas De Oliveira DPM, 1 application at 11/09/17 0841 ??? baclofen (LIORESAL) tablet 10 mg, 10 mg, oral, TID with meals, Rachna Burt MD, 10 mg at 11/09/17 1725 ??? bisacodyl (DULCOLAX) suppository 10 mg, 10 mg, rectal, Daily PRN, Jason Shore Jr., NP, 10 mg at 11/06/17 1824 ??? bisacodyl EC (DULCOLAX EC) tablet 5 mg, 5 mg, oral, BID PRN, Jason Shore Jr., NP, 5 mg at 11/07/17 1012 ??? budesonide-formoterol (SYMBICORT) 80-4.5 mcg/actuation inhaler 1 puff, 1 puff, inhalation, BID (RT), Rachna Burt MD, 1 puff at 11/09/172024 ??? bumetanide (BUMEX) tablet 0.5 mg, 0.5 mg, oral, Daily, Александр Espino Jr., MD, 0.5 mg at 11/09/17835 ??? camphor-menthol (SARNA) 0.5-0.5 % lotion, , topical, PRN, Rachna Burt MD ??? chlorhexidine (PERIDEX) 0.12 % solution 5 mL, 5 mL, mouth/throat, BID, Rachna Burt MD, 5 mL at 11/09/170 ??? collagenase 250 unit/gram ointment, , topical, Daily, Rachna Burt MD ??? dextrose (GLUTOSE) 40 % gel 15 g, 15 g, oral, Q15 Min PRN, Jason Shore Jr., OWNER/PHOTOGRAPHER ??? dextrose 50% (concentrated solution) CONCENTRATED solution 25 g, 25 g, intravenous, Q15 Min PRN, Jason Shore Jr., OWNER/PHOTOGRAPHER ??? diphenhydrAMINE (BENADRYL) tab/cap 25 mg, 25 mg, oral, QID PRN, Александр Espino Jr., MD, 25 mgat 11/09/171946 ??? docusate sodium (COLACE) capsule 100 mg, 100 mg, oral, BID, Jason Shore Jr., OWNER/PHOTOGRAPHER, 100 mg at 11/09/171945 ??? ergocalciferol (VITAMIN D) capsule 50,000 Units, 50,000 Units, oral, Weekly, Adam Pastor MD, 50,000 Units at 11/09/17835 ??? glucagon injection 1 mg, 1 mg, intramuscular, Q30 Min PRN, Jason Shore Jr., OWNER/PHOTOGRAPHER ??? ipratropium-albuterol (DUO-NEB) 0.5-2.5 mg/3 mL nebulizer solution 3 mL, 3 mL, nebulization, Q4H PRN (RT), Rachna Burt MD ??? lidocaine (LIDODERM) 5 % patch 1 patch, 1 patch, transdermal, Daily, Jason Shore Jr., OWNER/PHOTOGRAPHER, Stopped at 11/09/171954 ??? metoprolol (LOPRESSOR) tablet 12.5 mg, 12.5 mg, oral, BID, Rachna Burt MD, 12.5 mg at 11/09/171946 ??? miconazole 2 % powder, , topical, BID, Rachna Burt MD ??? ondansetron (ZOFRAN) tablet 4 mg, 4 mg, oral, Q4H PRN, Rachna Burt MD, 4 mg at 11/06/17 1645 ??? oxyCODONE (ROXICODONE) tablet 10 mg, 10 mg, oral, Q4H PRN, Rachna Burt MD, 10 mg at 11/10/17 0355 ??? oxyCODONE (ROXICODONE) tablet 5 mg, 5 mg, oral, Q4H PRN, Rachna Burt MD, 5 mg at 11/01/17 1313 ??? pantoprazole DR (PROTONIX) extended release tablet 40 mg, 40 mg, oral, Daily, Rachna Burt MD, 40 mg at 11/09/17 0836 ??? polyethylene glycol (MIRALAX) packet 17 g, 17 g, oral, BID PRN, Jason Shore Jr., OWNER/PHOTOGRAPHER, 17 g at 11/09/17 0836 ??? senna (SENOKOT) tablet 1 tablet, 1 tablet, oral, Daily, Rachna Burt MD, 1 tablet at 11/09/1736 ??? tamsulosin (FLOMAX) extended release capsule 0.4 mg, 0.4 mg, oral, Nightly, Rachna Burt MD, 0.4 mg at 11/09/171946 ??? zinc sulfate (ZINCATE) capsule 220 mg, 220 mg, oral, Daily, Rachna Burt MD, 220 mg at 11/09/17 0836 ??? zolpidem (AMBIEN) tablet 5 mg, 5 mg, oral, Nightly PRN, Rachna Burt MD, 5 mg at 11/08/176 Labs: Labs reviewed: Normal sodium. Hypercapnia resolved. No results found for this or any previous visit (from the past 24 hour(s)). Imaging: Chest x-ray October 30 improved Diagnostics: Ejection fraction 65%. No vegetations. Mild left atrial enlargement Microbiology: Positive sputum culture for stenotrophomonas on October 13 Assessment & Plan: Assessment/Plan Hyponatremia Assessment & Plan Hyponatremia, resolved. Suspect dilutional. Monitor renal function with diuresis. Still with some edema on exam. Pneumonia Assessment & Plan Completed treatment for pneumonia, empyema prior to transfer to [facility]. Finished Bactrim for stenotrophomonas pneumonia here. Continue to observe off antibiotics. Diskitis Assessment & Plan Completed debridement, prolonged antibiotic therapy for an L1 diskitis. Continue physical therapy, pain control Hypercapnic respiratory failure ([facility]) Assessment & Plan Successfully decannulated. Comfortable on room air. Doing well without BiPAP COPD (chronic obstructive pulmonary disease) ([facility]) Assessment & Plan Pulmonary function testing when stable. Continue inhaled bronchodilator therapy. Lungs are clear Former smoker Assessment & Plan May meet criteria for lung cancer screen Chronic atrial fibrillation ([facility]) Assessment & Plan Normal sinus rhythm by exam. Monitor for bleeding ( had bleeding around his tracheostomy, skin tears while at [facility]). Continue amiodarone, aspirin, Lipitor, metoprolol, apixaban For today: Off Bactrim for stenotrophomonas pneumonia. Diuretic dose adjusted. Hyponatremia is stable. I suspect dilutional based on physical exam, increased total body water. He is not on a thiazide, SSRI etc. Blood gas noted. Normal pCO2. Continue to follow off BiPAP. Still complains of some weakness, left greater than right. 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 Peg tube has been removed. Possible discharge today Prophylaxis: DVT ppx: Long-term oral anticoagulation At Code Status: Full Code. Александр Espino Jr., MD 2017 7:50 AM This note was transcribed using Speech Recognition software. As a result, there may be grammatical and spelling errors that are unintended. Every attempt is made to have correct dictation. If there are any questions or major errors, please contact me * Adam Pastor MD - 2017 5:42 AM CDT Internal Medicine Progress Note Adam Pastor M.D. 2017 Patient Name: José Miguel Jang Admit Date: 10/24/2017 PCP: Briana Medeiros MD Consult requested by Dr Rachna Burt MD Patient Name: José Miguel Jang PCP: Briana Medeiros MD Date of admission: 10/24/2017 Date of Service: 2017 Reason for Consultation: Medical Management Slept most of the night. Dispo planning in progress. Happy that G tube is out. Remains diffusely week,but a little stronger. Denies SOB. Not requiring BiPAP or supplemental O2. On RA. Dr Espino following. Mild residual edema, tolerating bumex 0.5. No fever, chills, chest pain. Tolerating eliquis. H/H low, but stable. Glc normal on spot check. Bowel regimen. Vitals acceptable. PMHx: Past Medical History: Diagnosis Date ??? A-fib (CMS/HCC) ??? A-fib (CMS/HCC) history ??? Chronic obstructive pulmonary disease (CMS/HCC) COPD ??? Coronary artery disease ??? Diabetes mellitus (CMS/HCC) ??? HX OTHER MEDICAL DJD ??? Hypertension PSurgHx: Past Surgical History: Procedure Laterality Date ??? BACK SURGERY ??? TOTAL HIP ARTHROPLASTY Bilateral ??? TRACHEOSTOMY All: Allergies Allergen Reactions ??? Penicillins Outpt Meds: Prescriptions Prior to Admission Medication Sig Dispense Refill Last Dose ??? acetaminophen (TYLENOL) 325 mg tablet Take 650 mg by mouth every 4 (four) hours as needed for pain. ??? albuterol (PROVENTIL,VENTOLIN) 2.5 mg/0.5 mL solution for nebulization Take 5 mg by nebulization every 6 (six) hours as needed. ??? amiodarone (PACERONE) 200 mg tablet Take 200 mg by mouth 2 (two) times a day. ??? apixaban (ELIQUIS) 5 mg tablet Take 5 mg by mouth 2 (two) times a day. ??? aspirin 81 mg chewable tablet Take 81 mg by mouth daily. ??? atorvastatin (LIPITOR) 20 mg tablet Take 20 mg by mouth daily. ??? bisacodyl (DULCOLAX) 10 mg suppository Insert 10 mg into the rectum every third day. ??? bumetanide (BUMEX) 0.5 mg tablet Take 0.25 mg by mouth daily. ??? chlorhexidine (PERIDEX) 0.12 % solution Apply 5 mL to the mouth or throat 2 (two) times a day. ??? diphenhydrAMINE (BENADRYL) 25 mg capsule Take 25 mg by mouth 3 (three) times a day as needed for itching. ??? docusate (COLACE) liquid 50 mg/5 mL Take 100 mg by mouth daily. ??? famotidine (PEPCID) 20 mg tablet Take 20 mg by mouth 2 (two) times a day. ??? insulin lispro (HumaLOG) 100 unit/mL injection Inject 0-10 Units under the skin 4 (four) times a day (with meals and nightly). Low dose sliding scale ??? LORazepam (ATIVAN) 2 mg/mL injection Infuse 1 mg into a venous catheter every 6 (six) hours as needed for anxiety. ??? metoprolol (LOPRESSOR) 25 mg tablet Take 12.5 mg by mouth 2 (two) times a day. ??? ondansetron (ZOFRAN) 4 mg tablet Take 4 mg by mouth every 4 (four) hours as needed for nausea or vomiting. ??? oxyCODONE (ROXICODONE) 5 mg immediate release tablet Take 5 mg by mouth every 4 (four) hours asneeded. ??? oxyCODONE (ROXICODONE) 5 mg immediate release tablet Take 10 mg by mouth every 4 (four) hours as needed (prn pain scale 7-10). ??? polyethylene glycol (MIRALAX) 17 gram packet Take 17 g by mouth daily as needed. ??? senna (SENOKOT) 8.6 mg tablet Take 1 tablet by mouth daily. ??? sulfamethoxazole-trimethoprim (BACTRIM,SEPTRA) 800-160 mg per tablet Take 1 tablet by mouth 2 (two) times a day. ??? tamsulosin (FLOMAX) 0.4 mg extended release capsule Take 0.4 mg by mouth nightly. ??? zolpidem (AMBIEN) 5 mg tablet Take 5 mg by mouth nightly as needed for sleep. ??? aspirin (ASPIRIN LOW DOSE) 81 mg tablet take 1 Tablet (81MG) by oral route every day 0 Taking ??? budesonide-formoterol (SYMBICORT) 80-4.5 mcg/actuation inhaler Inhale 1 puff 2 (two) times a day. Taking ??? cyanocobalamin, vitamin B-12, 500 mcg lozenge Take by mouth. Taking ??? diclofenac DR (VOLTAREN) 75 mg EC tablet take 2 Tablet (150MG) by oral route every day (Patientnot taking: Reported on 02/22/2017 ) 0 Not Taking ??? doxepin (SINEquan) 25 mg capsule TAKE 1 CAPSULE TWICE A DAY Taking ??? ferrous fumarate 325 mg (106 mg iron) tablet Take 2 tablets by mouth daily. Taking ??? furosemide (LASIX) 20 mg tablet take 1 tablet by oral route every day (Patient not taking: Reported on 02/22/2017 ) 0 0 Not Taking ??? metFORMIN (GLUCOPHAGE) 500 mg tablet Take 500 mg by mouth 2 (two) times a day with meals. Taking ??? pantoprazole DR (PROTONIX) 40 mg EC tablet take 1 tablet by oral route every day 0 0 Taking ??? potassium chloride ER (potassium chloride ER) 10 mEq CR tablet TAKE ONE TABLET BY MOUTH ONCE DAILY WITH FOOD (Patient not taking: Reported on 02/22/2017 ) 30 0 Not Taking Inpatient Meds: Current Facility-Administered Medications: ??? acetaminophen (TYLENOL) tablet 650 mg, 650 mg, oral, Q4H PRN, Rachna Burt MD, 650 mg at 11/09/17 1424 ??? albuterol (PROVENTIL,VENTOLIN) 2.5 mg/0.5 mL nebulizer solution 5 mg, 5 mg, nebulization, Q6H PRN, Rachna Burt MD ??? amiodarone (PACERONE) tablet 200 mg, 200 mg, oral, BID, Rachna Burt MD, 200 mg at 946 ??? apixaban (ELIQUIS) tablet 5 mg, 5 mg, oral, BID, Rachna Burt MD, 5 mg at 11/09/17 194 ??? ascorbic acid (VITAMIN C) tablet/chewable tablet 500 mg, 500 mg, oral, BID, Rachna Burt MD, 500 mg at 11/09/17 1946 ??? aspirin enteric coated tablet 81 mg, 81 mg, oral, Daily, Rachna Burt MD, 81 mg at ??? atorvastatin (LIPITOR) tablet 20 mg, 20 mg, oral, Daily, Rachna Burt MD, 20 mg at ??? bacitracin 500 unit/gram ointment packet 1 application, 1 application, topical, Daily, Nas De Oliveira DPM, 1 application at 11/09/17 0841 ??? baclofen (LIORESAL) tablet 10 mg, 10 mg, oral, TID with meals, Rachna Burt MD, 10 mg at 11/09/17 1725 ??? bisacodyl (DULCOLAX) suppository 10 mg, 10 mg, rectal, Daily PRN, Jason Shore Jr., OWNER/PHOTOGRAPHER, 10 mg at 11/06/17 1824 ??? bisacodyl EC (DULCOLAX EC) tablet 5 mg, 5 mg, oral, BID PRN, Jason Shore Jr., OWNER/PHOTOGRAPHER, 5 mg at 11/07/17 1012 ??? budesonide-formoterol (SYMBICORT) 80-4.5 mcg/actuation inhaler 1 puff, 1 puff, inhalation, BID (RT), Rachna Burt MD, 1 puff at 11/09/172024 ??? bumetanide (BUMEX) tablet 0.5 mg, 0.5 mg, oral, Daily, Александр Espino Jr., MD, 0.5 mg at 11/09/17 0836 ??? camphor-menthol (SARNA) 0.5-0.5 % lotion, , topical, PRN, Rachna Burt MD ??? chlorhexidine (PERIDEX) 0.12 % solution 5 mL, 5 mL, mouth/throat, BID, Rachna Burt MD, 5 mL at 11/09/17 2300 ??? collagenase 250 unit/gram ointment, , topical, Daily, Rachna Burt MD ??? dextrose (GLUTOSE) 40 % gel 15 g, 15 g, oral, Q15 Min PRN, Jason Shore Jr., OWNER/PHOTOGRAPHER ??? dextrose 50% (concentrated solution) CONCENTRATED solution 25 g, 25 g, intravenous, Q15 Min PRN, Jason Shore Jr., BELLA ??? diphenhydrAMINE (BENADRYL) tab/cap 25 mg, 25 mg, oral, QID PRN, Александр Espino Jr., MD, 25 mgat 11/09/171946 ??? docusate sodium (COLACE) capsule 100 mg, 100 mg, oral, BID, Jason Shore Jr., BELLA, 100 mg at 11/09/171945 ??? ergocalciferol (VITAMIN D) capsule 50,000 Units, 50,000 Units, oral, Weekly, Adam Pastor MD, 50,000 Units at 11/09/17 0836 ??? glucagon injection 1 mg, 1 mg, intramuscular, Q30 Min PRN, Jason Shore Jr., BELLA ??? ipratropium-albuterol (DUO-NEB) 0.5-2.5 mg/3 mL nebulizer solution 3 mL, 3 mL, nebulization, Q4H PRN (RT), Rachna Burt MD ??? lidocaine (LIDODERM) 5 % patch 1 patch, 1 patch, transdermal, Daily, Jason Shore Jr., NP, Stopped at 11/09/171954 ??? metoprolol (LOPRESSOR) tablet 12.5 mg, 12.5 mg, oral, BID, Rachna Burt MD, 12.5 mg at 11/09/171946 ??? miconazole 2 % powder, , topical, BID, Rachna Burt MD ??? ondansetron (ZOFRAN) tablet 4 mg, 4 mg, oral, Q4H PRN, Rachna Burt MD, 4 mg at 11/06/17 1645 ??? oxyCODONE (ROXICODONE) tablet 10 mg, 10 mg, oral, Q4H PRN, Rachna Burt MD, 10 mg at 11/09/17 1231 ??? oxyCODONE (ROXICODONE) tablet 5 mg, 5 mg, oral, Q4H PRN, Rachna Burt MD, 5 mg at 11/01/17 1313 ??? pantoprazole DR (PROTONIX) extended release tablet 40 mg, 40 mg, oral, Daily, Rachna Burt MD, 40 mg at 11/09/17835 ??? polyethylene glycol (MIRALAX) packet 17 g, 17 g, oral, BID PRN, Jason Shore Jr., OWNER/PHOTOGRAPHER, 17 g at 11/09/17835 ??? senna (SENOKOT) tablet 1 tablet, 1 tablet, oral, Daily, Rachna Burt MD, 1 tablet at 11/09/17835 ??? tamsulosin (FLOMAX) extended release capsule 0.4 mg, 0.4 mg, oral, Nightly, Rachna Burt MD, 0.4 mg at 11/09/171946 ??? zinc sulfate (ZINCATE) capsule 220 mg, 220 mg, oral, Daily, Rachna Burt MD, 220 mg at 11/09/17835 ??? zolpidem (AMBIEN) tablet 5 mg, 5 mg, oral, Nightly PRN, Rachna Burt MD, 5 mg at 11/08/172135 SocHx: Social History Substance Use Topics ??? Smoking status: Former Smoker ??? Smokeless tobacco: Never Used ??? Alcohol use No FamHx: History reviewed. No pertinent family history. Review of Systems History from patient and medical records General positive for - fatigue ENT positive for - dysphagia CV positive for - chest pain, dyspnea on exertion, edema, irregular heartbeat and shortness of breath Respiratory positive for - pleuritic pain and shortness of breath GI positive for - change in bowel habits positive for - change in urinary stream MS positive for - gait disturbance, joint pain, joint stiffness and muscular weakness Neuro positive for - weakness All Other ROS Negative BP 105/55 Pulse 78 Temp 36.3 ??C (97.4 ??F) (Oral) Resp 18 Ht 180.3 cm (5' 11 ) Wt 93.2 kg (205 lb 7.5 oz) SpO2 98% BMI 28.66 kg/m?? Intake/Output Summary (Last 24 hours) at 11/10/17 0318 Last data filed at 11/10/17 0115 Gross per 24 hour Intake 870 ml Output 700 ml Net 170 ml Wt Readings from Last 3 Encounters: 11/06/17 93.2 kg (205 lb 7.5 oz) 10/24/17 88.9 kg (196 lb) 02/22/17 116.1 kg (256 lb) General appearance Alert, no distress Head Normocephalic, without obvious abnormality, atraumatic Throat Oropharynx clear Neck Supple. Trach stoma healing Lungs Clear to auscultation bilaterally, diminished bases Chest wall +tenderness Heart Regular rate and rhythm Abdomen Soft, non-tender. Bowel sounds normal. G tube site dressed Extremities + edema Neurologic Diffusely weak CBC: Recent Labs Lab Units 11/07/17 0615 11/03/17 0538 WHITE BLOOD CELLS K/cumm 5.7 5.5 HEMOGLOBIN g/dL 9.5* 9.3* HEMATOCRIT % 31.5* 31.1* PLATELETS K/cumm 205 160 BMP: Recent Labs Lab Units 11/07/17 0615 11/03/17 0538 SODIUM mmol/L 138 139 POTASSIUM PLASMA mmol/L 3.7 4.1 CHLORIDE mmol/L 100 100 CO2 mmol/L 27 29 ANIONGAP mmol/L 11 10 GLUCOSE mg/dL 83 89 BUN SERUM mg/dL 16 14 CREATININE mg/dL 0.76* 0.74* CALCIUM mg/dL 8.5 8.7 ALBUMIN g/dL -- 3.0* ALK PHOS Units/L -- 144* ALT Units/L -- 38 AST Units/L -- 28 BILIRUBIN TOTAL mg/dL -- 0.3 EKG: No results found for this or any previous visit. RADIOLOGY: No results found. 1. Debility: Complicated recent medical course. Comprehensive rehab program. 2. L1 abscess s/p debridement with MRSA empyema: Pain control. F/u with surgery team. Complete course of bactrim. Chest tube out 3. Respiratory failure: S/p trach, decannulated. Aggressive pulm toilet. BDs/inhaled steroids. Dr Espino following. NIPPV as required. H/o COPD and prior tobacco abuse. 4. Dysphagia: S/p PEG. TOWING PILOT, RD f/u. Aspiration precautions 5. Dm2: A1c 4.7%. Metformin held. SSI, accuchecks. RD eval. 6. CAD: ASA, statin, BBlocker 7. HTN: Metoprolol, bumex 8. Afib: Eliquis, amio, metoprolol 9. Urinary retention: Flomax, monitor UOP 10. Dyslipid; Statin 11. Anemia: ACD and ABLA. Monitor cbc, transfuse for hgb under 7 or if symptomatic. Thank you for involving me in this patient's care. I will continue to follow along with you. ?? DVT Prophylaxis: Eliquis ?? GI prophylaxis: PPI ?? Code Status Full Code 35 min were spent in the care of this patient today; this may have included family conferences, nursing conferences and discussion with any consultants Adam Pastor M.D. * Александр Espino Jr., MD - 11/09/2017 8:08 AM CDT Pulmonary / Critical Care Daily Progress Chief Complaint/HPI/Hospital Course: Good night. Comfortable on room air. Continues to do well without BiPAP. Still with some edema on exam. Standing with assistance but not taking many steps; still very weak. 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 Peg tube was removed November 08. Review of Systems: Review of Systems Constitutional: Negative for chills, fatigue and fever. HENT: Negative for congestion, sore throat and trouble swallowing. Respiratory: Negative for cough, chest tightness, shortness of breath and wheezing. Cardiovascular: Negative for chest pain and leg swelling. Gastrointestinal: Negative for diarrhea, nausea and vomiting. Genitourinary: Negative for dysuria and hematuria. Neurological: Positive for weakness. Negative for dizziness and headaches. Psychiatric/Behavioral: Negative for behavioral problems and sleep disturbance. Temp: [36.4 ??C (97.6 ??F)-36.8 ??C (98.2 ??F)] 36.8 ??C (98.2 ??F) Pulse: [74-91] 82 Resp: [18-20] 20 BP: (102-117)/(53-67) 107/67 I/O last 2 completed shifts: In: 390 [P.O.:390] Out: 200 [Urine:200] No intake/output data recorded. Oxygen / Pulmonary Events Vent settings for last 24 hours: Oxygen Therapy SpO2: 94 % Pulse Oximetry Type: Intermittent Patient Activity: At rest O2 Therapy: None (Room air) O2 Del Method: CPAP/Bi-PAP mask FiO2 (%): 35 % O2 Flow Rate (L/min): 2 L/min] Physical exam: Physical Exam Constitutional: He is oriented to person, place, and time. He appears well- developed. No distress. HENT: Head: Normocephalic. Mouth/Throat: Oropharynx is clear and moist. Eyes: Pupils are equal, round, and reactive to light. Right eye exhibits no discharge. Left eye exhibits no discharge. Cardiovascular: Regular rhythm and normal heart sounds. Tachycardia present. Pulmonary/Chest: Effort normal and breath sounds normal. He has no wheezes. He has no rales. Abdominal: There is no rebound and no guarding. Musculoskeletal: He exhibits edema. Neurological: He is alert and oriented to person, place, and time. Psychiatric: He has a normal mood and affect. Current Facility-Administered Medications: ??? acetaminophen (TYLENOL) tablet 650 mg, 650 mg, oral, Q4H PRN, Rachna Burt MD, 650 mg at 11/08/171746 ??? albuterol (PROVENTIL,VENTOLIN) 2.5 mg/0.5 mL nebulizer solution 5 mg, 5 mg, nebulization, Q6H PRN, Rachna Burt MD ??? amiodarone (PACERONE) tablet 200 mg, 200 mg, oral, BID, Rachna Burt MD, 200 mg at ??? apixaban (ELIQUIS) tablet 5 mg, 5 mg, oral, BID, Rachna Burt MD, 5 mg at 11/08/172135 ??? ascorbic acid (VITAMIN C) tablet/chewable tablet 500 mg, 500 mg, oral, BID, Rachna Burt MD, 500 mg at 11/08/172135 ??? aspirin enteric coated tablet 81 mg, 81 mg, oral, Daily, Rachna Burt MD, 81 mg at ??? atorvastatin (LIPITOR) tablet 20 mg, 20 mg, oral, Daily, Rachna Burt MD, 20 mg at 06/05/003248 ??? bacitracin 500 unit/gram ointment packet 1 application, 1 application, topical, Daily, Nas De Oliveira DPM, 1 application at 11/08/17 0857 ??? baclofen (LIORESAL) tablet 10 mg, 10 mg, oral, TID with meals, Rachna Burt MD, 10 mg at 11/08/17 1745 ??? bisacodyl (DULCOLAX) suppository 10 mg, 10 mg, rectal, Daily PRN, Jason Shore Jr., BELLA, 10 mg at 11/06/17 1824 ??? bisacodyl EC (DULCOLAX EC) tablet 5 mg, 5 mg, oral, BID PRN, Jason Shore Jr., NP, 5 mg at 11/07/17 1012 ??? budesonide-formoterol (SYMBICORT) 80-4.5 mcg/actuation inhaler 1 puff, 1 puff, inhalation, BID (RT), Rachna Burt MD, 1 puff at 11/08/17 192 ??? bumetanide (BUMEX) tablet 0.5 mg, 0.5 mg, oral, Daily, Александр Espino Jr., MD, 0.5 mg at 11/08/17 0853 ??? camphor-menthol (SARNA) 0.5-0.5 % lotion, , topical, PRN, Rachna Burt MD ??? chlorhexidine (PERIDEX) 0.12 % solution 5 mL, 5 mL, mouth/throat, BID, Rachna Burt MD, 5 mL at 11/08/178 ??? collagenase 250 unit/gram ointment, , topical, Daily, Rachna Burt MD ??? dextrose (GLUTOSE) 40 % gel 15 g, 15 g, oral, Q15 Min PRN, Jason Shore Jr., OWNER/PHOTOGRAPHER ??? dextrose 50% (concentrated solution) CONCENTRATED solution 25 g, 25 g, intravenous, Q15 Min PRN, Jason Shore Jr., BELLA ??? diphenhydrAMINE (BENADRYL) tab/cap 25 mg, 25 mg, oral, QID PRN, Александр Espino Jr., MD, 25 mgat 11/08/171922 ??? docusate sodium (COLACE) capsule 100 mg, 100 mg, oral, BID, Jason Shore Jr., BELLA, 100 mg at 11/08/172135 ??? ergocalciferol (VITAMIN D) capsule 50,000 Units, 50,000 Units, oral, Weekly, Adam Pastor MD, 50,000 Units at 11/02/17 0719 ??? glucagon injection 1 mg, 1 mg, intramuscular, Q30 Min PRN, Jason Shore Jr., NP ??? ipratropium-albuterol (DUO-NEB) 0.5-2.5 mg/3 mL nebulizer solution 3 mL, 3 mL, nebulization, Q4H PRN (RT), Rachna Burt MD ??? lidocaine (LIDODERM) 5 % patch 1 patch, 1 patch, transdermal, Daily, Jason Shore Jr., BLELA, Stopped at 11/08/172136 ??? metoprolol (LOPRESSOR) tablet 12.5 mg, 12.5 mg, oral, BID, Rachna Burt MD, 12.5 mg at 11/08/172136 ??? miconazole 2 % powder, , topical, BID, Rachna Burt MD ??? ondansetron (ZOFRAN) tablet 4 mg, 4 mg, oral, Q4H PRN, Rachna Burt MD, 4 mg at 11/06/17 1645 ??? oxyCODONE (ROXICODONE) tablet 10 mg, 10 mg, oral, Q4H PRN, Rachna Burt MD, 10 mg at 11/09/17 0324 ??? oxyCODONE (ROXICODONE) tablet 5 mg, 5 mg, oral, Q4H PRN, Rachna Burt MD, 5 mg at 11/01/17 1313 ??? pantoprazole DR (PROTONIX) extended release tablet 40 mg, 40 mg, oral, Daily, Rachna Burt MD, 40 mg at 11/08/17 0853 ??? polyethylene glycol (MIRALAX) packet 17 g, 17 g, oral, BID PRN, Jason Shore Jr., NP, 17 g at 11/05/172121 ??? senna (SENOKOT) tablet 1 tablet, 1 tablet, oral, Daily, Rachna Burt MD, 1 tablet at 11/08/17852 ??? tamsulosin (FLOMAX) extended release capsule 0.4 mg, 0.4 mg, oral, Nightly, Rachna Burt MD, 0.4 mg at 11/08/172135 ??? zinc sulfate (ZINCATE) capsule 220 mg, 220 mg, oral, Daily, Rachna Burt MD, 220 mg at 11/08/17852 ??? zolpidem (AMBIEN) tablet 5 mg, 5 mg, oral, Nightly PRN, Rachna Burt MD, 5 mg at 11/08/172135 Labs: Labs reviewed: Resolved hyponatremia, hypercarbia. Room air saturation > 90% No results found for this or any previous visit (from the past 24 hour(s)). Imaging: Chest x-ray October 30 improved Diagnostics: Ejection fraction 65%. No vegetations. Mild left atrial enlargement Microbiology: Positive sputum culture for stenotrophomonas on October 13 Assessment & Plan: Assessment/Plan Hyponatremia Assessment & Plan Hyponatremia, resolved. Suspect dilutional. Monitor renal function with diuresis. Still with some edema on exam. Pneumonia Assessment & Plan Completed treatment for pneumonia, empyema prior to transfer to [facility]. Finished Bactrim for stenotrophomonas pneumonia here. Continue to observe off antibiotics. Diskitis Assessment & Plan Completed debridement, prolonged antibiotic therapy for an L1 diskitis. Continue physical therapy, pain control Hypercapnic respiratory failure ([facility]) Assessment & Plan Successfully decannulated. Comfortable on room air. Doing well without BiPAP COPD (chronic obstructive pulmonary disease) ([facility]/HCC) Assessment & Plan Pulmonary function testing when stable. Continue inhaled bronchodilator therapy. Lungs are clear Former smoker Assessment & Plan May meet criteria for lung cancer screen Chronic atrial fibrillation ([facility]) Assessment & Plan Normal sinus rhythm by exam. Monitor for bleeding ( had bleeding around his tracheostomy, skin tears while at [facility]). Continue amiodarone, aspirin, Lipitor, metoprolol, apixaban For today: Off Bactrim for stenotrophomonas pneumonia. Diuretic dose adjusted. Hyponatremia is stable. I suspect dilutional based on physical exam, increased total body water. He is not on a thiazide, SSRI etc. Blood gas noted. Normal pCO2. Continue to follow off BiPAP. Still complains of some weakness, left greater than right. 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 Peg tube has been removed Prophylaxis: DVT ppx: Long-term oral anticoagulation At Code Status: Full Code. Александр Espino Jr., MD 11/09/2017 8:13 AM This note was transcribed using Speech Recognition software. As a result, there may be grammatical and spelling errors that are unintended. Every attempt is made to have correct dictation. If there are any questions or major errors, please contact me * Adam Pastor MD - 11/09/2017 6:12 AM CDT Internal Medicine Progress Note Adam Pastor M.D. 11/09/2017 Patient Name: José Miguel Jang Admit Date: 10/24/2017 PCP: Briana Medeiros MD Consult requested by Dr Rachna Burt MD Patient Name: José Miguel Jang PCP: Briana Medeiros MD Date of admission: 10/24/2017 Date of Service: 11/09/2017 Reason for Consultation: Medical Management Slept. Looking forward to dispo soon. GI consulted, G tube removed. Strength slowly improving. Denies SOB. Not requiring BiPAP or supplemental O2. On RA. Dr Espino following. Mild residual edema, better with bumex 0.5. No fever, chills, chest pain. Tolerating eliquis. H/H low, but stable. Glc normal on spot check. Bowel regimen. Vitals acceptable. PMHx: Past Medical History: Diagnosis Date ??? A-fib (CMS/HCC) ??? A-fib (CMS/HCC) history ??? Chronic obstructive pulmonary disease (CMS/HCC) COPD ??? Coronary artery disease ??? Diabetes mellitus (CMS/HCC) ??? HX OTHER MEDICAL DJD ??? Hypertension PSurgHx: Past Surgical History: Procedure Laterality Date ??? BACK SURGERY ??? TOTAL HIP ARTHROPLASTY Bilateral ??? TRACHEOSTOMY All: Allergies Allergen Reactions ??? Penicillins Outpt Meds: Prescriptions Prior to Admission Medication Sig Dispense Refill Last Dose ??? acetaminophen (TYLENOL) 325 mg tablet Take 650 mg by mouth every 4 (four) hours as needed for pain. ??? albuterol (PROVENTIL,VENTOLIN) 2.5 mg/0.5 mL solution for nebulization Take 5 mg by nebulization every 6 (six) hours as needed. ??? amiodarone (PACERONE) 200 mg tablet Take 200 mg by mouth 2 (two) times a day. ??? apixaban (ELIQUIS) 5 mg tablet Take 5 mg by mouth 2 (two) times a day. ??? aspirin 81 mg chewable tablet Take 81 mg by mouth daily. ??? atorvastatin (LIPITOR) 20 mg tablet Take 20 mg by mouth daily. ??? bisacodyl (DULCOLAX) 10 mg suppository Insert 10 mg into the rectum every third day. ??? bumetanide (BUMEX) 0.5 mg tablet Take 0.25 mg by mouth daily. ??? chlorhexidine (PERIDEX) 0.12 % solution Apply 5 mL to the mouth or throat 2 (two) times a day. ??? diphenhydrAMINE (BENADRYL) 25 mg capsule Take 25 mg by mouth 3 (three) times a day as needed for itching. ??? docusate (COLACE) liquid 50 mg/5 mL Take 100 mg by mouth daily. ??? famotidine (PEPCID) 20 mg tablet Take 20 mg by mouth 2 (two) times a day. ??? insulin lispro (HumaLOG) 100 unit/mL injection Inject 0-10 Units under the skin 4 (four) times a day (with meals and nightly). Low dose sliding scale ??? LORazepam (ATIVAN) 2 mg/mL injection Infuse 1 mg into a venous catheter every 6 (six) hours as needed for anxiety. ??? metoprolol (LOPRESSOR) 25 mg tablet Take 12.5 mg by mouth 2 (two) times a day. ??? ondansetron (ZOFRAN) 4 mg tablet Take 4 mg by mouth every 4 (four) hours as needed for nausea or vomiting. ??? oxyCODONE (ROXICODONE) 5 mg immediate release tablet Take 5 mg by mouth every 4 (four) hours asneeded. ??? oxyCODONE (ROXICODONE) 5 mg immediate release tablet Take 10 mg by mouth every 4 (four) hours as needed (prn pain scale 7-10). ??? polyethylene glycol (MIRALAX) 17 gram packet Take 17 g by mouth daily as needed. ??? senna (SENOKOT) 8.6 mg tablet Take 1 tablet by mouth daily. ??? sulfamethoxazole-trimethoprim (BACTRIM,SEPTRA) 800-160 mg per tablet Take 1 tablet by mouth 2 (two) times a day. ??? tamsulosin (FLOMAX) 0.4 mg extended release capsule Take 0.4 mg by mouth nightly. ??? zolpidem (AMBIEN) 5 mg tablet Take 5 mg by mouth nightly as needed for sleep. ??? aspirin (ASPIRIN LOW DOSE) 81 mg tablet take 1 Tablet (81MG) by oral route every day 0 Taking ??? budesonide-formoterol (SYMBICORT) 80-4.5 mcg/actuation inhaler Inhale 1 puff 2 (two) times a day. Taking ??? cyanocobalamin, vitamin B-12, 500 mcg lozenge Take by mouth. Taking ??? diclofenac DR (VOLTAREN) 75 mg EC tablet take 2 Tablet (150MG) by oral route every day (Patientnot taking: Reported on 02/22/2017 ) 0 Not Taking ??? doxepin (SINEquan) 25 mg capsule TAKE 1 CAPSULE TWICE A DAY Taking ??? ferrous fumarate 325 mg (106 mg iron) tablet Take 2 tablets by mouth daily. Taking ??? furosemide (LASIX) 20 mg tablet take 1 tablet by oral route every day (Patient not taking: Reported on 02/22/2017 ) 0 0 Not Taking ??? metFORMIN (GLUCOPHAGE) 500 mg tablet Take 500 mg by mouth 2 (two) times a day with meals. Taking ??? pantoprazole DR (PROTONIX) 40 mg EC tablet take 1 tablet by oral route every day 0 0 Taking ??? potassium chloride ER (potassium chloride ER) 10 mEq CR tablet TAKE ONE TABLET BY MOUTH ONCE DAILY WITH FOOD (Patient not taking: Reported on 02/22/2017 ) 30 0 Not Taking Inpatient Meds: Current Facility-Administered Medications: ??? acetaminophen (TYLENOL) tablet 650 mg, 650 mg, oral, Q4H PRN, Rachna Burt MD, 650 mg at 11/08/17 1747 ??? albuterol (PROVENTIL,VENTOLIN) 2.5 mg/0.5 mL nebulizer solution 5 mg, 5 mg, nebulization, Q6H PRN, Rachna Burt MD ??? amiodarone (PACERONE) tablet 200 mg, 200 mg, oral, BID, Rachna Burt MD, 200 mg at ??? apixaban (ELIQUIS) tablet 5 mg, 5 mg, oral, BID, Rachna Burt MD, 5 mg at 11/08/172135 ??? ascorbic acid (VITAMIN C) tablet/chewable tablet 500 mg, 500 mg, oral, BID, Rachna Burt MD, 500 mg at 11/08/172135 ??? aspirin enteric coated tablet 81 mg, 81 mg, oral, Daily, Rachna Burt MD, 81 mg at ??? atorvastatin (LIPITOR) tablet 20 mg, 20 mg, oral, Daily, Rachna Burt MD, 20 mg at ??? bacitracin 500 unit/gram ointment packet 1 application, 1 application, topical, Daily, Nas De Oliveira DPM, 1 application at 11/08/17 0857 ??? baclofen (LIORESAL) tablet 10 mg, 10 mg, oral, TID with meals, Rachna Burt MD, 10 mg at 11/08/17 1745 ??? bisacodyl (DULCOLAX) suppository 10 mg, 10 mg, rectal, Daily PRN, Jason Shore Jr., NP, 10 mg at 11/06/17 1824 ??? bisacodyl EC (DULCOLAX EC) tablet 5 mg, 5 mg, oral, BID PRN, Jason Shore Jr., NP, 5 mg at 11/07/17 1012 ??? budesonide-formoterol (SYMBICORT) 80-4.5 mcg/actuation inhaler 1 puff, 1 puff, inhalation, BID (RT), Rachna Burt MD, 1 puff at 11/08/171924 ??? bumetanide (BUMEX) tablet 0.5 mg, 0.5 mg, oral, Daily, Александр Espino Jr., MD, 0.5 mg at 11/08/1753 ??? camphor-menthol (SARNA) 0.5-0.5 % lotion, , topical, PRN, Rachna Burt MD ??? chlorhexidine (PERIDEX) 0.12 % solution 5 mL, 5 mL, mouth/throat, BID, Rachna Burt MD, 5 mL at 11/08/172137 ??? collagenase 250 unit/gram ointment, , topical, Daily, Rachna Burt MD ??? dextrose (GLUTOSE) 40 % gel 15 g, 15 g, oral, Q15 Min PRN, Jason Shore Jr., OWNER/PHOTOGRAPHER ??? dextrose 50% (concentrated solution) CONCENTRATED solution 25 g, 25 g, intravenous, Q15 Min PRN, Jason Shore Jr., OWNER/PHOTOGRAPHER ??? diphenhydrAMINE (BENADRYL) tab/cap 25 mg, 25 mg, oral, QID PRN, Александр Espino Jr., MD, 25 mgat 11/08/171922 ??? docusate sodium (COLACE) capsule 100 mg, 100 mg, oral, BID, Jason Shore Jr., OWNER/PHOTOGRAPHER, 100 mg at 11/08/172135 ??? ergocalciferol (VITAMIN D) capsule 50,000 Units, 50,000 Units, oral, Weekly, Adam Pastor MD, 50,000 Units at 11/02/17 0719 ??? glucagon injection 1 mg, 1 mg, intramuscular, Q30 Min PRN, Jason Shore Jr., OWNER/PHOTOGRAPHER ??? ipratropium-albuterol (DUO-NEB) 0.5-2.5 mg/3 mL nebulizer solution 3 mL, 3 mL, nebulization, Q4H PRN (RT), Rachna Burt MD ??? lidocaine (LIDODERM) 5 % patch 1 patch, 1 patch, transdermal, Daily, Jason Shore Jr., OWNER/PHOTOGRAPHER, Stopped at 11/08/172136 ??? metoprolol (LOPRESSOR) tablet 12.5 mg, 12.5 mg, oral, BID, Rachna Burt MD, 12.5 mg at 11/08/172136 ??? miconazole 2 % powder, , topical, BID, Rachna Burt MD ??? ondansetron (ZOFRAN) tablet 4 mg, 4 mg, oral, Q4H PRN, Rachna Burt MD, 4 mg at 11/06/17 1645 ??? oxyCODONE (ROXICODONE) tablet 10 mg, 10 mg, oral, Q4H PRN, Rachna Burt MD, 10 mg at 11/09/17 0324 ??? oxyCODONE (ROXICODONE) tablet 5 mg, 5 mg, oral, Q4H PRN, Rachna Burt MD, 5 mg at 11/01/17 1313 ??? pantoprazole DR (PROTONIX) extended release tablet 40 mg, 40 mg, oral, Daily, Rachna Burt MD, 40 mg at 11/08/17852 ??? polyethylene glycol (MIRALAX) packet 17 g, 17 g, oral, BID PRN, Jason Shore Jr., OWNER/PHOTOGRAPHER, 17 g at 11/05/172121 ??? senna (SENOKOT) tablet 1 tablet, 1 tablet, oral, Daily, Rachna Burt MD, 1 tablet at 11/08/17852 ??? tamsulosin (FLOMAX) extended release capsule 0.4 mg, 0.4 mg, oral, Nightly, Rachna Burt MD, 0.4 mg at 11/08/172135 ??? zinc sulfate (ZINCATE) capsule 220 mg, 220 mg, oral, Daily, Rachna Burt MD, 220 mg at 11/08/17852 ??? zolpidem (AMBIEN) tablet 5 mg, 5 mg, oral, Nightly PRN, Rachna Burt MD, 5 mg at 11/08/172135 SocHx: Social History Substance Use Topics ??? Smoking status: Former Smoker ??? Smokeless tobacco: Never Used ??? Alcohol use No FamHx: History reviewed. No pertinent family history. Review of Systems History from patient and medical records General positive for - fatigue ENT positive for - dysphagia CV positive for - chest pain, dyspnea on exertion, edema, irregular heartbeat and shortness of breath Respiratory positive for - pleuritic pain and shortness of breath GI positive for - change in bowel habits positive for - change in urinary stream MS positive for - gait disturbance, joint pain, joint stiffness and muscular weakness Neuro positive for - weakness All Other ROS Negative BP 107/67 (BP Location: Right arm, Patient Position: Lying) Pulse 82 Temp 36.8 ??C (98.2 ??F) (Oral) Resp 20 Ht 180.3 cm (5' 11 ) Wt 93.2 kg (205 lb 7.5 oz) SpO2 94% BMI 28.66 kg/m?? Intake/Output Summary (Last 24 hours) at 11/09/17 0659 Last data filed at 11/09/17 0535 Gross per 24 hour Intake 390 ml Output 200 ml Net 190 ml Wt Readings from Last 3 Encounters: 11/06/17 93.2 kg (205 lb 7.5 oz) 10/24/17 88.9 kg (196 lb) 02/22/17 116.1 kg (256 lb) General appearance Alert, no distress Head Normocephalic, without obvious abnormality, atraumatic Throat Oropharynx clear Neck Supple. Trach stoma healing Lungs Clear to auscultation bilaterally, diminished bases Chest wall +tenderness Heart Regular rate and rhythm Abdomen Soft, non-tender. Bowel sounds normal. G tube site dressed Extremities + edema Neurologic Diffusely weak CBC: Recent Labs Lab Units 11/07/17 0615 11/03/17 0538 WHITE BLOOD CELLS K/cumm 5.7 5.5 HEMOGLOBIN g/dL 9.5* 9.3* HEMATOCRIT % 31.5* 31.1* PLATELETS K/cumm 205 160 BMP: Recent Labs Lab Units 11/07/17 0615 11/03/17 0538 SODIUM mmol/L 138 139 POTASSIUM PLASMA mmol/L 3.7 4.1 CHLORIDE mmol/L 100 100 CO2 mmol/L 27 29 ANIONGAP mmol/L 11 10 GLUCOSE mg/dL 83 89 BUN SERUM mg/dL 16 14 CREATININE mg/dL 0.76* 0.74* CALCIUM mg/dL 8.5 8.7 ALBUMIN g/dL -- 3.0* ALK PHOS Units/L -- 144* ALT Units/L -- 38 AST Units/L -- 28 BILIRUBIN TOTAL mg/dL -- 0.3 EKG: No results found for this or any previous visit. RADIOLOGY: No results found. 1. Debility: Complicated recent medical course. Comprehensive rehab program. 2. L1 abscess s/p debridement with MRSA empyema: Pain control. F/u with surgery team. Complete course of bactrim. Chest tube out 3. Respiratory failure: S/p trach, decannulated. Aggressive pulm toilet. BDs/inhaled steroids. Dr Espino following. NIPPV as required. H/o COPD and prior tobacco abuse. 4. Dysphagia: S/p PEG. TOWING PILOT, RD f/u. Aspiration precautions 5. Dm2: A1c 4.7%. Metformin held. SSI, accuchecks. RD eval. 6. CAD: ASA, statin, BBlocker 7. HTN: Metoprolol, bumex 8. Afib: Eliquis, amio, metoprolol 9. Urinary retention: Flomax, monitor UOP 10. Dyslipid; Statin 11. Anemia: ACD and ABLA. Monitor cbc, transfuse for hgb under 7 or if symptomatic. Thank you for involving me in this patient's care. I will continue to follow along with you. ?? DVT Prophylaxis: Eliquis ?? GI prophylaxis: PPI ?? Code Status Full Code 35 min were spent in the care of this patient today; this may have included family conferences, nursing conferences and discussion with any consultants Adam Pastor M.D. * Carlita Bansal RD - 11/08/2017 3:06 PM CDT Nutrition Follow-up Progress Note Encounter Date: 11/08/17 3:06 PM Nutrition Progress Summary: Patient is a 66 y.o. male. Admit Dx: DEBILITY. Admitted on 10/24/2017. Patient's intake is adequate. Objective Dietary Orders Start Ordered 10/27/17 1422 Adult Diet Regular Diet effective now Question: ([facility]) Diet type Answer: Regular 10/27/17 1421 10/25/17 1300 Oral Nutrition Supplements Select Supplement: Glucerna Shake - Chocolate 3 times daily Question: Select Supplement: Answer: Glucerna Shake - Chocolate 10/25/17 1200 Anthropometrics Weight: 93.2 kg (205 lb 7.5 oz) Admission Weight : 94.3 kg Weight Change: 0.20 kg (0.44 lbs) IBW/kg (Calculated) : 78 kg Height: 180.3 cm (5' 11 ) Weight in (lb) to have BMI = 25: 178.9 BMI (Calculated): 28.7 No intake or output data in the 24 hours ending 11/08/17 1506 Medications and Lab Review: Scheduled Meds: amiodarone 200 mg oral BID apixaban 5 mg oral BID ascorbic acid 500 mg oral BID aspirin 81 mg oral Daily atorvastatin 20 mg oral Daily bacitracin 1 application topical Daily baclofen 10 mg oral TID with meals budesonide-formoterol 1 puff inhalation BID (RT) bumetanide 0.5 mg oral Daily chlorhexidine 5 mL mouth/throat BID collagenase topical Daily docusate sodium 100 mg oral BID ergocalciferol 50,000 Units oral Weekly lidocaine 1 patch transdermal Daily metoprolol 12.5 mg oral BID miconazole topical BID pantoprazole DR 40 mg oral Daily senna 1 tablet oral Daily tamsulosin 0.4 mg oral Nightly zinc sulfate 220 mg oral Daily Continuous Infusions: PRN Meds: ??? acetaminophen ??? albuterol ??? bisacodyl ??? bisacodyl EC ??? camphor-menthol ??? dextrose ??? dextrose 50% ??? diphenhydrAMINE ??? glucagon ??? ipratropium-albuterol ??? ondansetron ??? oxyCODONE ??? oxyCODONE ??? polyethylene glycol ??? zolpidem Sodium Date Value Ref Range Status 11/07/2017 138 135 - 145 mmol/L Final Potassium Date Value Ref Range Status 11/07/2017 3.7 3.3 - 4.9 mmol/L Final BUN Date Value Ref Range Status 11/07/2017 16 8 - 25 mg/dL Final Creatinine Date Value Ref Range Status 11/07/2017 0.76 (L) 0.80 - 1.30 mg/dL Final Calcium Date Value Ref Range Status 11/07/2017 8.5 8.5 - 10.3 mg/dL Final Lab Results Component Value Date HGBA1C 4.7 09/27/2017 Nursing Assessment: Last BM Date: 11/08/17 Bowel Sounds (All Quadrants): Active Emesis Assessment Emesis Color/Appearance: Brown, Undigested food Rex Scale Score: 18 Skin Integrity: Bruising, Surgical incision Type of Wound (LDA): Wound Impression: Pt unavailable at time of visit. Po intakes recorded 75-100%. Per MD notes, plan to remove PEG. Wt stable since admit. Will continue to send supplement for wound healing. Plan: f/u for po intakes, supplement needs Current Nutrition Issues: Nutrition Diagnosis 1: Increased nutrient needs (protein) Related to: Wounds Evidenced by: Physicalfinding Nutrition Plan: Interventions: Encouragement, Medical food supplement Monitoring and Evaluation: PO intake, Supplement tolerance Goals: Tolerance of medical food supplement by next assessment, Oral intake to meet 75% estimated nutritional needs by next assessment Carlita Bansal RD, LD * Germaine Fountain RRT - 11/08/2017 11:32 AM CDT Continue current MDI therapy for Home Regimen 11/08/17 0710 RT Protocol Assessment RT Assessment Scoring Needed Bronchodilator Bronchodilator Assessment Scoring Pulmonary Status 3 Surgical Status <30 days ago 0 Chest X-Ray < WEEK 0 Respiratory Pattern 0 Mental Status/LOC 0 Cough 0 Breath Sounds 2 Level of Activity 1 Oxygen Required for SPO2 >92% 0 Bronhcodilator Assessment Score 6 * Rachna Burt MD - 11/08/2017 7:46 AM CDT [facility] Rehabilitation Medicine Progress Note NAME: José Miguel Jang AGE: 66 y.o. : 1950 Date of Note: 11/08/2017 REHABILITATION PROGRESS NOTE Physician Physical Assessment/ Progress Note . Rehab Impairment Code: Impairment Code Group: Debility Date of onset: Date of Onset: 07/29/17 Date of admission: 10/24/2017 Subjective: Slept. Eating breakfast. Bright affect. Expressing wants and needs. Adequate eye contact. Enduranceimproving. Trach stoma slowly healing. No O2 via NC needed. Tolerating BiPAP. Pulmonology following. Disc with Dr. Espino this am. Skin assessed, some redness in the medial gluteal folds. Continues making slow, but steady progress. Back pain, on lido patch and K-pad. Intermittent nausea better on Zofran. + BM. PEG in place. Adequate po intake. Will ask GI to remove. Generalized weakness. Back incision c/d/i. Wound care following. Santyl to an area of partial dehiscence. No erythema. Continent of bowel and bladder. Edema improved. Bumex as tolerated. On eliquis. Anemia, monitor. Glucose overall controlled. Podiatry has seen for diabetic foot care. No fever chills, chest pain , or acute sob. Family supportive. PHYSICAL EXAMINATION: Vitals: 11/07/17 2010 11/07/17 2147 11/08/17 0300 11/08/17 0708 BP: 107/60 93/49 BP Location: Right arm Patient Position: Lying Pulse: 86 80 Resp: 18 Temp: 37 ??C (98.6 ??F) TempSrc: Oral SpO2: 97% 97% 97% Weight: Height: Physical exam:?? GENERAL: Pleasant and in no acute distress MENTAL STATUS: ??Awake, alert and oriented to person, place and time with normal attention span, insight, and concentration. ??Naming and repetition are normal. ??Remote and recent memory intact. ??Fund of knowledge is appropriate. SPEECH: ??Fluent, non-dysarthric, no aphasia noted CRANIAL NERVES: Visual herrera are full on confrontation. ??Pupils are equally round and reactive tolight??bilaterally. Extraocular movements are??full and intact. No nystagmus is noted. ??There is no loss of sensation over the face. ??There is no facial weakness or asymmetry. ??Hearing intact bilaterally to finger rubbing. Uvula and palate elevate in the midline. Shoulder shrug is symmetric. ??Tongue protrudes in the midline. MOTOR: Generalized weakness. Moves all extremities. BL LE: hip flexors 3/5, knee extension and flexion 4/5, BL DF 3/5 Bulk and tone are nomal. ??No abnormal movements are noted. REFLEXES: 1+ and symmetric in bilateral upper extremities. SENSORY: Intact to light??touch in all four extremities.?No extinction with bilateral stimulation. COORDINATION: ??Normal GAIT AND STATION: Not tested, per therapy notes CARDIOVASCULAR: Regular rate and rhythm. ??No murmurs, rubs, gallops or carotid bruits. LUNGS: Clear to auscultation bilaterally. No wheezes, rhonchi or rales. ABDOMEN: ??Soft and non-tender.?Normal bowel sounds were noted. EXTREMITIES: ??No edema, back incision dehisced IMPRESSION: Rehab Diagnosis: Respiratory Failure Impairment Code Group: Debility Physician Problem List/ Comorbidities: Active Problems: Chronic atrial fibrillation ([facility]) Former smoker COPD (chronic obstructive pulmonary disease) ([facility]) Hypercapnic respiratory failure ([facility]) Diskitis Pneumonia Hyponatremia MEDICAL PLAN: 1. Debility: ??Complicated recent medical course. ??Comprehensive inpatient rehabilitation, family training, structured environment. 2. 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 ??F/u with surgery team. ??Complete course of bactrim. ??Chest tube out. Wound care following back incision. 3. Respiratory failure: ??S/p trach, decannulated. ??Aggressive pulm toilet. ??BDs/inhaled steroids. ??Dr Espino following. NIPPV as required. ??H/o COPD and prior tobacco abuse. 4. Dysphagia: ??S/p PEG. ??TOWING PILOT, RD f/u. ??Aspiration precautions 5. Dm2: ??A1c 4.7%: prudent diet, diabetic education. ??Metformin, SSI, accuchecks. ??RD eval. 6. CAD: ??ASA, statin, BBlocker 7. HTN: ??Metoprolol, bumex 8. Afib: ??Eliquis, amio, metoprolol 9. Urinary retention: ??Flomax, monitor UOP 10. Dyslipid; ??Statin 11. Anemia: ??ACD and ABLA. ??Monitor cbc, transfuse for hgb under 7 or if symptomatic. 12. Nutrition: rd consult. ?? * DVT prophylaxsis: eliquis * GI prophylaxsis: ppi CODE STATUS: Full Code ALLERGY: Allergies Allergen Reactions ??? Penicillins Current Facility-Administered Medications: ??? acetaminophen (TYLENOL) tablet 650 mg, 650 mg, oral, Q4H PRN, Rachna Burt MD, 650 mg at 11/06/17 1535 ??? albuterol (PROVENTIL,VENTOLIN) 2.5 mg/0.5 mL nebulizer solution 5 mg, 5 mg, nebulization, Q6H PRN, Rachna Burt MD ??? amiodarone (PACERONE) tablet 200 mg, 200 mg, oral, BID, Rachna Burt MD, 200 mg at ??? apixaban (ELIQUIS) tablet 5 mg, 5 mg, oral, BID, Rachna Burt MD, 5 mg at 11/07/172146 ??? ascorbic acid (VITAMIN C) tablet/chewable tablet 500 mg, 500 mg, oral, BID, Rachna Burt MD, 500 mg at 11/07/172146 ??? aspirin enteric coated tablet 81 mg, 81 mg, oral, Daily, Rachna Burt MD, 81 mg at ??? atorvastatin (LIPITOR) tablet 20 mg, 20 mg, oral, Daily, Rachna Burt MD, 20 mg at ??? bacitracin 500 unit/gram ointment packet 1 application, 1 application, topical, Daily, Nas De Oliveira DPM, 1 application at 11/07/17 1024 ??? baclofen (LIORESAL) tablet 10 mg, 10 mg, oral, TID with meals, Rachna Burt MD, 10 mg at 11/07/17 1634 ??? bisacodyl (DULCOLAX) suppository 10 mg, 10 mg, rectal, Daily PRN, Jason Shore Jr., OWNER/PHOTOGRAPHER, 10 mg at 11/06/17 182 ??? bisacodyl EC (DULCOLAX EC) tablet 5 mg, 5 mg, oral, BID PRN, Jason Shore Jr., BELLA, 5 mg at 11/07/17 1012 ??? budesonide-formoterol (SYMBICORT) 80-4.5 mcg/actuation inhaler 1 puff, 1 puff, inhalation, BID (RT), Rachna Burt MD, 1 puff at 11/08/17 0708 ??? bumetanide (BUMEX) tablet 0.5 mg, 0.5 mg, oral, Daily, Александр Espino Jr., MD, 0.5 mg at 11/07/17 101 ??? camphor-menthol (SARNA) 0.5-0.5 % lotion, , topical, PRN, Rachna Burt MD ??? chlorhexidine (PERIDEX) 0.12 % solution 5 mL, 5 mL, mouth/throat, BID, Rachna Burt MD, 5 mL at 11/07/172147 ??? collagenase 250 unit/gram ointment, , topical, Daily, Rachna Burt MD ??? dextrose (GLUTOSE) 40 % gel 15 g, 15 g, oral, Q15 Min PRN, Jason Shore Jr., BELLA ??? dextrose 50% (concentrated solution) CONCENTRATED solution 25 g, 25 g, intravenous, Q15 Min PRN, Jason Shore Jr., BELLA ??? diphenhydrAMINE (BENADRYL) tab/cap 25 mg, 25 mg, oral, QID PRN, Александр Espino Jr., MD, 25 mgat 11/07/172147 ??? docusate sodium (COLACE) capsule 100 mg, 100 mg, oral, BID, Jason Shore Jr., BELLA, 100 mg at 11/07/172147 ??? ergocalciferol (VITAMIN D) capsule 50,000 Units, 50,000 Units, oral, Weekly, Adam Pastor MD, 50,000 Units at 11/02/17 0719 ??? glucagon injection 1 mg, 1 mg, intramuscular, Q30 Min PRN, Jason W. Silviano Jr., OWNER/PHOTOGRAPHER ??? ipratropium-albuterol (DUO-NEB) 0.5-2.5 mg/3 mL nebulizer solution 3 mL, 3 mL, nebulization, Q4H PRN (RT), Rachna Burt MD ??? lidocaine (LIDODERM) 5 % patch 1 patch, 1 patch, transdermal, Daily, Jason Shore Jr., OWNER/PHOTOGRAPHER, Stopped at 11/07/172147 ??? metoprolol (LOPRESSOR) tablet 12.5 mg, 12.5 mg, oral, BID, Rachna Burt MD, 12.5 mg at 11/07/172147 ??? miconazole 2 % powder, , topical, BID, Rachna Burt MD ??? ondansetron (ZOFRAN) tablet 4 mg, 4 mg, oral, Q4H PRN, Rachna Burt MD, 4 mg at 11/06/17 1645 ??? oxyCODONE (ROXICODONE) tablet 10 mg, 10 mg, oral, Q4H PRN, Rachna Brut MD, 10 mg at 11/07/17 1419 ??? oxyCODONE (ROXICODONE) tablet 5 mg, 5 mg, oral, Q4H PRN, Rachna Burt MD, 5 mg at 11/01/17 1313 ??? pantoprazole DR (PROTONIX) extended release tablet 40 mg, 40 mg, oral, Daily, Rachna Burt MD, 40 mg at 11/07/17 1012 ??? polyethylene glycol (MIRALAX) packet 17 g, 17 g, oral, BID PRN, Jason Shore Jr., OWNER/PHOTOGRAPHER, 17 g at 11/05/172121 ??? senna (SENOKOT) tablet 1 tablet, 1 tablet, oral, Daily, Rachna Burt MD, 1 tablet at 11/07/17 1011 ??? tamsulosin (FLOMAX) extended release capsule 0.4 mg, 0.4 mg, oral, Nightly, Rachna Burt MD, 0.4 mg at 11/07/172146 ??? zinc sulfate (ZINCATE) capsule 220 mg, 220 mg, oral, Daily, Rachna Burt MD, 220 mg at 11/07/17 1012 ??? 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 PM: sit<-->stand x4 reps in // bars with maxassist x1 + mod assist x1 with SARAH UE support and 3-5 minute rest breaks required between attempts (1 min x2 reps, 45 sec x2 reps), WC-->bed transfer with total assist x2 via garrett lift, rolls BILin bed with mod assist and SARAH rails. Pt continues to express strong low back pain and constant muscle spasms in back that radiate throughout SARAH LEs, with a constant pain level between 7-8/10. RN notified each time and medications administered as able. Pt's left knee is more stiff, swollen, and inflamed today, limiting pt's ability to bear equal weight through it or extend it with multiple standing attempts in // bars. Left UE also continues to fatigue quickly and cannot support pt for long with standing. Pt is still max assist for supine-->sit EOB, but able to complete a right sided slide board transfer w/ max assist x1 from elevated EOB. Pt continues to need max assist x2 for sit<-->stand training and total Ax2 via garrett lift for WC-->bed transfers. Pt's biggest limitationsinclude pain/spasms, left sided weakness, decreased ROM in SARAH hips/knees, and significant fatigue w/ exertion. Pt to benefit from LiteGait training next session if able to tolerate. Continue per plan of care. OT Functional Mobility: Pt. completes supine to sit max assist and 2 person DEP for sit to stand with manual stand aid. Pt able to assist slightly more when pulling self up in manual sit to stand this date OT Self Care: DEP to minimal assist for self care with 1 to 2 people. Pt using rolling shower chairwith sarah supports and manual stand aid 2 person with LE dressing. Pt demonstrates general decreasedbalance, endurance, strength and sensation. Pt will benefit from continued skilled OT to promote IND toward goals. Pt. vomiting this AM and RN notified. OT Cognition: Appears WNL OT Communication: decreased vocal strength at times. TOWING PILOT Cognition: WFL TOWING PILOT Communication: WFL TOWING PILOT Swallowing: WFL: Regular consistency with thin liquids, tolerating diet well Patient/caregiver goals:Patient and Family Goals: to return home Pre hospital Living environment: Home Setting: Split level home Prehospital Lives With: Spouse;Adult children REVIEW OF DATA: No results found for this or any previous visit (from the past 24 hour(s)). REVIEW OF IMAGING: Imaging (Last 96 hours) 10/22 1037 XR Chest 1 Vw REHABILITATION DIAGNOSIS: Impairment Code Group: Debility REHAB PLAN OF CARE: The Interdisciplinary Team will work collaboratively to address the patient problems and goals to be managed by the Individualized Interdisciplinary Plan of Care. Rehabilitation Precautions/Restrictions: Falls;MRSA colonization;Isolation Multi-Disciplinary Problems Active Problems Problem: Health Behavior: Start Date: 10/24/17 Goal Start Date End Date Understanding of discharge needs will improve 10/24/17 -- Goal Intervention Frequency Start Date End Date Discuss information regarding discharge instructions -- 10/24/17 -- Goal Intervention Frequency Start Date End Date Identify discharge learning needs (meds, wound care, etc) -- 10/24/17 -- Goal Intervention Frequency Start Date End Date Collaborate with case management -- 10/24/17 -- Intervention Details: (Coordinate discharge planning if the patient needs post- hospital services onphysician order or complex needs related to functional status, cognitive ability, or social supportsystem) Goal Intervention Frequency Start Date End Date Arrange for needed discharge resources and transportation as appropriate -- 10/24/17 -- Goal Intervention Frequency Start Date End Date Identify discharge barriers -- 10/24/17 -- Goal Intervention Frequency Start Date End Date Collaborate with spanish interpreter -- 10/24/17 -- Problem: Lack of Knowledge: Start Date: 10/25/17 Goal Start Date End Date Ability to state ways to decrease the risk of falls will improve 10/25/17 -- Goal Intervention Frequency Start Date End Date Teach fall prevention measures -- 10/25/17 -- Goal Intervention Frequency Start Date End Date Teach information regarding appropriate environmental changes -- 10/25/17 -- Problem: Safety: Start Date: 10/25/17 Goal Start Date End Date Will remain free from falls 10/25/17 -- Goal Intervention Frequency Start Date End Date Assess risk factors for falls -- 10/25/17 -- Intervention Details: (including medications) Goal Intervention Frequency Start Date End Date Implement fall prevention measures -- 10/25/17 -- Goal Intervention Frequency Start Date End Date Collaborate with other disciplines -- 10/25/17 -- Intervention Details: (PT, OT, Pharmacy, MD, etc.) Goal Start Date End Date Will remain free from injury from falls 10/25/17 -- Goal Intervention Frequency Start Date End Date Provide safe environment for conduction of activities of daily living -- 10/25/17 -- Goal Start Date End Date Will remain free from falls and injury in home environment 10/25/17 -- Goal Intervention Frequency Start Date End Date Assess environmental risk factors -- 10/25/17 -- Problem: Activity: Start Date: 10/25/17 Goal Start Date End Date Mobility will improve 10/25/17 -- Goal Intervention Frequency Start Date End Date Encourage mobilization to extent of ability -- 10/25/17 -- Goal Intervention Frequency Start Date End Date Perform repositioning -- 10/25/17 -- Goal Intervention Frequency Start Date End Date Collaborate with physical therapy -- 10/25/17 -- Problem: Lack of Knowledge: Start Date: 10/25/17 Goal Start Date End Date Understanding of ways to prevent future skin breakdown will improve 10/25/17 -- Goal Intervention Frequency Start Date End Date Discuss precautions to protect skin integrity -- 10/25/17 -- Goal Intervention Frequency Start Date End Date Discuss treatment plan for related conditions -- 10/25/17 -- Goal Start Date End Date Ability to identify appropriate dietary choices will improve 10/25/17 -- Goal Intervention Frequency Start Date End Date Discuss dietary adjustments -- 10/25/17 -- Problem: Nutritional: Start Date: 10/25/17 Goal Start Date End Date Dietary intake will improve 10/25/17 -- Goal Intervention Frequency Start Date End Date Assess nutritional status -- 10/25/17 -- Goal Intervention Frequency Start Date End Date Collaborate with dietitian -- 10/25/17 -- Goal Intervention Frequency Start Date End Date Assist appropriate dietary choices -- 10/25/17 -- Goal Start Date End Date Ability to maintain a balanced intake and output will improve 10/25/17 -- Goal Intervention Frequency Start Date End Date Assess intake and output -- 10/25/17 -- Problem: Skin Integrity: Start Date: 10/25/17 Goal Start Date End Date Risk for impaired skin integrity will decrease 10/25/17 -- Goal Intervention Frequency Start Date End Date Identify risk factors for impaired skin integrity and/or pressure injuries -- 10/25/17 -- Goal Intervention Frequency Start Date End Date Monitor medication effects -- 10/25/17 -- Goal Intervention Frequency Start Date End Date Implement precautions to protect skin integrity -- 10/25/17 -- Goal Intervention Frequency Start Date End Date Use moisturizing agent to dry skin -- 10/25/17 -- Goal Intervention Frequency Start Date End Date Perform cleansing of skin when soiled -- 10/25/17 -- Goal Intervention Frequency Start Date End Date Provide pressure-relief bed or mattress -- 10/25/17 -- Goal Start Date End Date Ability to demonstrate warm and dry skin will improve 10/25/17 -- Goal Intervention Frequency Start Date End Date Monitor skin integrity, appearance and/or temperature -- 10/25/17 -- Goal Start Date End Date Circulation will improve to fullest extent possible 10/25/17 -- Goal Intervention Frequency Start Date End Date Assess circulation, sensation and/or motion of extremity -- 10/25/17 -- Problem: Bladder/Voiding Start Date: 10/25/17 Goal Start Date End Date LTG - Patient will achieve acceptable level of continence 10/25/17 -- Goal Start Date End Date STG - Patient demonstrates no accidents 10/25/17 -- Goal Intervention Frequency Start Date End Date Encourage toileting PRN 10/25/17 -- Goal Intervention Frequency Start Date End Date Educate patient about medications PRN 10/25/17 -- Problem: Bowel Elimination Start Date: 10/25/17 Goal Start Date End Date LTG - Patient will have regular and routine bowel evacuation 10/25/17 -- Goal Start Date End Date LTG - Patient will complete bowel elimination 10/25/17 -- Goal Start Date End Date STG - Patient maintains skin integrity 10/25/17 -- Goal Intervention Frequency Start Date End Date Educate patient about ostomy appliances, correct application, protection of skin PRN 10/25/17 -- Goal Start Date End Date STG - Patient will verbalize signs and symptoms of constipation and how to prevent/alleviate 10/25/17 -- Goal Intervention Frequency Start Date End Date Encourage use of aids (stool softener, laxative, suppository) PRN 10/25/17 -- Goal Intervention Frequency Start Date End Date Encourage adjustment and monitoring of fluid intake PRN 10/25/17 -- Goal Intervention Frequency Start Date End Date Teach patient about symptoms of impaction PRN 10/25/17 -- Goal Intervention Frequency Start Date End Date Educate patient about effect of fluid intake on bowel movement PRN 10/25/17 -- Goal Intervention Frequency Start Date End Date Educate patient about adequate fluid intake PRN 10/25/17 -- Goal Start Date End Date STG - Patient will be continent of stool 10/25/17 -- Goal Start Date End Date STG - Patient verbalizes knowledge about relationship between diet, fluid intake, activity and medication on constipation 10/25/17 -- Goal Intervention Frequency Start Date End Date Educate patient about medications PRN 10/25/17 -- Goal Intervention Frequency Start Date End Date Educate patient about adequate fluid intake PRN 10/25/17 -- Problem: Breathing Start Date: 10/25/17 Goal Start Date End Date STG - Respiratory rate and effort will be within normal limits for the patient 10/25/17 -- Goal Intervention Frequency Start Date End Date Provide oxygen therapy as ordered PRN 10/25/17 -- Goal Intervention Frequency Start Date End Date Monitor oygen saturation PRN 10/25/17 -- Goal Intervention Frequency Start Date End Date Encourage incentive spirometer x 10 each hour while awake PRN 10/25/17 -- Goal Intervention Frequency Start Date End Date Encourage/perform oral hygiene as appropriate PRN 10/25/17 -- Goal Intervention Frequency Start Date End Date Collaborate with respiratory therapy to administer medications/treatments PRN 10/25/17 -- Goal Start Date End Date STG - Patient/family will be able to verbalize oxygen safety precautions 10/25/17 -- Goal Intervention Frequency Start Date End Date Educate patient about oxygen PRN 10/25/17 -- Goal Start Date End Date [facility] - Patient will utilize incentive spirometer 10/25/17 -- Goal Intervention Frequency Start Date End Date Encourage incentive spirometer x 10 each hour while awake PRN 10/25/17 -- Goal Intervention Frequency Start Date End Date Encourage use of incentive spirometer PRN 10/25/17 -- Goal Start Date End Date STG - Patient performs or directs assisted coughing 10/25/17 -- Goal Intervention Frequency Start Date End Date Instruct on coughing and deep breathing PRN 10/25/17 -- Goal Intervention Frequency Start Date End Date Educate patient about forced cough PRN 10/25/17 -- Goal Intervention Frequency Start Date End Date Teach patient about assistive cough PRN 10/25/17 -- Problem: Pain Start Date: 10/25/17 Goal Start Date End Date [facility] - Pain is manageable through therapies 10/25/17 -- Goal Start Date End Date [facility] - Patient will verbalize an acceptable level of pain 10/25/17 -- Problem: OT Misc Start Date: 10/25/17 Goal Start Date End Date [facility] [place] [facility] 10/25/17 -- Goal Details: Pt to dress modified IND Goal Start Date End Date [facility] [place] 2 10/25/17 -- Goal Details: Pt to groom modified IND Goal Start Date End Date [facility] [place] 3 10/25/17 -- Goal Details: Pt to bathe with transfer modified IND Goal Start Date End Date [facility] [place] 4 10/25/17 -- Goal Details: Pt to toilet with transfer modified IND Goal Start Date End Date [facility] [place] 5 10/25/17 -- Goal Details: Pt to complete UE HEP with IND to promote IND with self care and functional transfers Problem: Cognitive: Start Date: 10/25/17 Goal Start Date End Date [facility] 1 10/25/17 -- Goal Details: Patient will execute multiple elements of a task with supervision Goal Start Date End Date [facility] 2 10/25/17 -- Goal Details: Patient will increase problem solving to complete tasks at 90% or with supervision Problem: Physical Regulation: Start Date: 10/25/17 Goal Start Date End Date [facility] 3 10/25/17 -- Goal Details: Patient will increase general strength/coordination through various exercises with supervision until disch Problem: Respiratory: Start Date: 10/25/17 Goal Start Date End Date [facility] 4 10/25/17 -- Goal Details: Patient will maintain/increase SPO2 by 1% in at least one session prior to disch Goal Start Date End Date [facility] 5 10/25/17 -- Goal Details: Patient will increase pulmonary function through various exercises with supervision until disch Problem: PT [facility] [place] Start Date: 10/25/17 Goal Start Date End Date [facility] [place] 1 10/25/17 -- Goal Details: Pt will roll SARAH and supine<-->sit EOB with supervision and bedrails as needed.Pt will sit<-->stand with minimum assist and appropriate assistive device. Pt will transfer bed<-->wheelchair/chair with minimum assist and appropriate assistive device. Goal Start Date End Date [facility] [place] 2 10/25/17 -- Goal Details: Pt will ambulate 150' w/ minimum assist and appropriate assistive device. Pt will ambulate up/down 4 stairs with mod assist and SARAH rails. Goal Start Date End Date [facility] [place] 4 10/25/17 -- Goal Details: Pt will complete SARAH LE HEP x15 reps with supervision. Goal Start Date End Date [facility] [place] 5 10/25/17 -- Goal Details: Pt and/or family will verbalize and demonstrate understanding of pt's safety and mobility needs upon discharge. * Александр Espino Jr., MD - 11/08/2017 7:28 AM CDT Pulmonary / Critical Care Daily Progress Chief Complaint/HPI/Hospital Course: Good night. With physical therapy. Normal pCO2. Comfortable onroom air. Continues to do well without BiPAP. Still with some edema on exam. Standing with assistance but not taking many step still very weak. 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 HENT: Negative for congestion, sore throat and trouble swallowing. Respiratory: Negative for cough, chest tightness, shortness of breath and wheezing. Cardiovascular: Negative for chest pain and leg swelling. Gastrointestinal: Negative for diarrhea, nausea and vomiting. Genitourinary: Negative for dysuria and hematuria. Neurological: Positive for weakness. Negative for dizziness and headaches. Psychiatric/Behavioral: Negative for behavioral problems and sleep disturbance. Temp: [36.6 ??C (97.9 ??F)-37 ??C (98.6 ??F)] 37 ??C (98.6 ??F) Pulse: [80-91] 80 Resp: [16-18] 18 BP: (93-111)/(49-66) 93/49 I/O last 2 completed shifts: In: - Out: 525 [Urine:525] No intake/output data recorded. Oxygen / Pulmonary Events Vent settings for last 24 hours: Oxygen Therapy SpO2: 97 % Pulse Oximetry Type: Intermittent Patient Activity: At rest O2 Therapy: None (Room air) O2 Del Method: CPAP/Bi-PAP mask FiO2 (%): 35 % O2 Flow Rate (L/min): 2 L/min] Physical exam: Physical Exam Constitutional: He is oriented to person, place, and time. He appears well- developed. No distress. HENT: Head: Normocephalic. Mouth/Throat: Oropharynx is clear and moist. Eyes: Pupils are equal, round, and reactive to light. Right eye exhibits no discharge. Left eye exhibits no discharge. Cardiovascular: Regular rhythm and normal heart sounds. Tachycardia present. Pulmonary/Chest: Effort normal and breath sounds normal. He has no wheezes. He has no rales. Abdominal: There is no rebound and no guarding. Peg Musculoskeletal: He exhibits edema. Neurological: He is alert and oriented to person, place, and time. Psychiatric: He has a normal mood and affect. Current Facility-Administered Medications: ??? acetaminophen (TYLENOL) tablet 650 mg, 650 mg, oral, Q4H PRN, Rachna Burt MD, 650 mg at 11/06/17 1535 ??? albuterol (PROVENTIL,VENTOLIN) 2.5 mg/0.5 mL nebulizer solution 5 mg, 5 mg, nebulization, Q6H PRN, Rachna Burt MD ??? amiodarone (PACERONE) tablet 200 mg, 200 mg, oral, BID, Rachna Burt MD, 200 mg at ??? apixaban (ELIQUIS) tablet 5 mg, 5 mg, oral, BID, Rachna Burt MD, 5 mg at 11/07/172146 ??? ascorbic acid (VITAMIN C) tablet/chewable tablet 500 mg, 500 mg, oral, BID, Rachna Burt MD, 500 mg at 11/07/172146 ??? aspirin enteric coated tablet 81 mg, 81 mg, oral, Daily, Rachna Burt MD, 81 mg at ??? atorvastatin (LIPITOR) tablet 20 mg, 20 mg, oral, Daily, Rachna Burt MD, 20 mg at ??? bacitracin 500 unit/gram ointment packet 1 application, 1 application, topical, Daily, Nas De Oliveira DPM, 1 application at 11/07/17 1024 ??? baclofen (LIORESAL) tablet 10 mg, 10 mg, oral, TID with meals, Rachna Burt MD, 10 mg at 11/07/17 1634 ??? bisacodyl (DULCOLAX) suppository 10 mg, 10 mg, rectal, Daily PRN, Jason Shore Jr. OWNER/PHOTOGRAPHER, 10 mg at 11/06/17 1824 ??? bisacodyl EC (DULCOLAX EC) tablet 5 mg, 5 mg, oral, BID PRN, Jason Shore Jr. OWNER/PHOTOGRAPHER, 5 mg at 11/07/17 1012 ??? budesonide-formoterol (SYMBICORT) 80-4.5 mcg/actuation inhaler 1 puff, 1 puff, inhalation, BID (RT), Rachna Burt MD, 1 puff at 11/08/17 0708 ??? bumetanide (BUMEX) tablet 0.5 mg, 0.5 mg, oral, Daily, Александр Espino Jr., MD, 0.5 mg at 11/07/17 1012 ??? camphor-menthol (SARNA) 0.5-0.5 % lotion, , topical, PRN, Rachna Burt MD ??? chlorhexidine (PERIDEX) 0.12 % solution 5 mL, 5 mL, mouth/throat, BID, Rachna Burt MD, 5 mL at 11/07/172147 ??? collagenase 250 unit/gram ointment, , topical, Daily, Rachna Burt MD ??? dextrose (GLUTOSE) 40 % gel 15 g, 15 g, oral, Q15 Min PRN, Jason Shore Jr., OWNER/PHOTOGRAPHER ??? dextrose 50% (concentrated solution) CONCENTRATED solution 25 g, 25 g, intravenous, Q15 Min PRN, Jason Shore Jr., OWNER/PHOTOGRAPHER ??? diphenhydrAMINE (BENADRYL) tab/cap 25 mg, 25 mg, oral, QID PRN, Александр Espino Jr., MD, 25 mgat 11/07/172147 ??? docusate sodium (COLACE) capsule 100 mg, 100 mg, oral, BID, Jason Shore Jr., BELLA, 100 mg at 11/07/172147 ??? ergocalciferol (VITAMIN D) capsule 50,000 Units, 50,000 Units, oral, Weekly, Adam Pastor MD, 50,000 Units at 11/02/17 0719 ??? glucagon injection 1 mg, 1 mg, intramuscular, Q30 Min PRN, Jason Shore Jr., BELLA ??? ipratropium-albuterol (DUO-NEB) 0.5-2.5 mg/3 mL nebulizer solution 3 mL, 3 mL, nebulization, Q4H PRN (RT), Rachna Burt MD ??? lidocaine (LIDODERM) 5 % patch 1 patch, 1 patch, transdermal, Daily, Jason Shore Jr., NP, Stopped at 11/07/172147 ??? metoprolol (LOPRESSOR) tablet 12.5 mg, 12.5 mg, oral, BID, Rachna Burt MD, 12.5 mg at 11/07/172147 ??? miconazole 2 % powder, , topical, BID, Rachna Burt MD ??? ondansetron (ZOFRAN) tablet 4 mg, 4 mg, oral, Q4H PRN, Rachna Burt MD, 4 mg at 11/06/17 1645 ??? oxyCODONE (ROXICODONE) tablet 10 mg, 10 mg, oral, Q4H PRN, Rachna Burt MD, 10 mg at 11/07/17 1419 ??? oxyCODONE (ROXICODONE) tablet 5 mg, 5 mg, oral, Q4H PRN, Rachna Burt MD, 5 mg at 11/01/17 1313 ??? pantoprazole DR (PROTONIX) extended release tablet 40 mg, 40 mg, oral, Daily, Rachna Burt MD, 40 mg at 11/07/17 1012 ??? polyethylene glycol (MIRALAX) packet 17 g, 17 g, oral, BID PRN, Jason Shore Jr., OWNER/PHOTOGRAPHER, 17 g at 11/05/172121 ??? senna (SENOKOT) tablet 1 tablet, 1 tablet, oral, Daily, Rachna Burt MD, 1 tablet at 11/07/17 1011 ??? tamsulosin (FLOMAX) extended release capsule 0.4 mg, 0.4 mg, oral, Nightly, Rachna Burt MD, 0.4 mg at 11/07/17 2147 ??? zinc sulfate (ZINCATE) capsule 220 mg, 220 mg, oral, Daily, Rachna Burt MD, 220 mg at 11/07/17 1012 ??? zolpidem (AMBIEN) tablet 5 mg, 5 mg, oral, Nightly PRN, Rachna Burt MD, 5 mg at 11/07/177 Labs: Labs reviewed: Resolved hyponatremia, hypercarbia. Room air saturation > 90% No results found for this or any previous visit (from the past 24 hour(s)). Imaging: Chest x-ray October 30 improved Diagnostics: Ejection fraction 65%. No vegetations. Mild left atrial enlargement Microbiology: Positive sputum culture for stenotrophomonas on October 13 Assessment & Plan: Assessment/Plan Hyponatremia Assessment & Plan Hyponatremia, resolved. Suspect dilutional. Monitor renal function with diuresis. Still with some edema on exam. Pneumonia Assessment & Plan Completed treatment for pneumonia, empyema prior to transfer to [facility]. Finished Bactrim for stenotrophomonas pneumonia here. Two-view chest x-ray much better. Continue to observe off antibiotics. Diskitis Assessment & Plan Completed debridement, prolonged antibiotic therapy for an L1 diskitis. Continue physical therapy, pain control Hypercapnic respiratory failure ([facility]) Assessment & Plan Successfully decannulated. Comfortable on room air. Doing well without BiPAP COPD (chronic obstructive pulmonary disease) ([facility]) Assessment & Plan Pulmonary function testing when stable. Continue inhaled bronchodilator therapy. Lungs are clear Former smoker Assessment & Plan May meet criteria for lung cancer screen Chronic atrial fibrillation ([facility]) Assessment & Plan Hemodynamically stable. Monitor for bleeding. Continue amiodarone, aspirin, Lipitor, metoprolol, apixaban For today: Off Bactrim for stenotrophomonas pneumonia. Diuretic dose adjusted. Hyponatremia is stable. I suspect dilutional based on physical exam, increased total body water. He is not on a thiazide, SSRI etc. Blood gas noted. Normal pCO2. Continue to follow off BiPAP. Still complains of some weakness, left greater than right. 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 Spoke with the rehab service regarding timing of PEG removal Prophylaxis: DVT ppx: Long-term oral anticoagulation At Code Status: Full Code. Александр Espino Jr., MD 11/08/2017 7:28 AM This note was transcribed using Speech Recognition software. As a result, there may be grammatical and spelling errors that are unintended. Every attempt is made to have correct dictation. If there are any questions or major errors, please contact me * Adam Pastor MD - 11/08/2017 6:23 AM CDT Internal Medicine Progress Note Adam Pastor M.D. 11/08/2017 Patient Name: José Miguel Jagn Admit Date: 10/24/2017 PCP: Briana Medeiros MD Consult requested by Dr Rachna Burt MD Patient Name: José Miguel Jang PCP: Briana Medeiros MD Date of admission: 10/24/2017 Date of Service: 11/08/2017 Reason for Consultation: Medical Management Slept most of the night. Asking about discharge. Diffusely weak. Denies SOB. Not requiring BiPAP orsupplemental O2. On RA. Dr Espino following. Less edema, continue bumex 0.5. No fever, chills, chest pain. Tolerating eliquis. H/H low, but stable. Glc normal on spot check. Bowel regimen. Vitals acceptable. PMHx: Past Medical History: Diagnosis Date ??? A-fib (CMS/HCC) ??? A-fib (CMS/HCC) history ??? Chronic obstructive pulmonary disease (CMS/HCC) COPD ??? Coronary artery disease ??? Diabetes mellitus (CMS/HCC) ??? HX OTHER MEDICAL DJD ??? Hypertension PSurgHx: Past Surgical History: Procedure Laterality Date ??? BACK SURGERY ??? TOTAL HIP ARTHROPLASTY Bilateral ??? TRACHEOSTOMY All: Allergies Allergen Reactions ??? Penicillins Outpt Meds: Prescriptions Prior to Admission Medication Sig Dispense Refill Last Dose ??? acetaminophen (TYLENOL) 325 mg tablet Take 650 mg by mouth every 4 (four) hours as needed for pain. ??? albuterol (PROVENTIL,VENTOLIN) 2.5 mg/0.5 mL solution for nebulization Take 5 mg by nebulization every 6 (six) hours as needed. ??? amiodarone (PACERONE) 200 mg tablet Take 200 mg by mouth 2 (two) times a day. ??? apixaban (ELIQUIS) 5 mg tablet Take 5 mg by mouth 2 (two) times a day. ??? aspirin 81 mg chewable tablet Take 81 mg by mouth daily. ??? atorvastatin (LIPITOR) 20 mg tablet Take 20 mg by mouth daily. ??? bisacodyl (DULCOLAX) 10 mg suppository Insert 10 mg into the rectum every third day. ??? bumetanide (BUMEX) 0.5 mg tablet Take 0.25 mg by mouth daily. ??? chlorhexidine (PERIDEX) 0.12 % solution Apply 5 mL to the mouth or throat 2 (two) times a day. ??? diphenhydrAMINE (BENADRYL) 25 mg capsule Take 25 mg by mouth 3 (three) times a day as needed for itching. ??? docusate (COLACE) liquid 50 mg/5 mL Take 100 mg by mouth daily. ??? famotidine (PEPCID) 20 mg tablet Take 20 mg by mouth 2 (two) times a day. ??? insulin lispro (HumaLOG) 100 unit/mL injection Inject 0-10 Units under the skin 4 (four) times a day (with meals and nightly). Low dose sliding scale ??? LORazepam (ATIVAN) 2 mg/mL injection Infuse 1 mg into a venous catheter every 6 (six) hours as needed for anxiety. ??? metoprolol (LOPRESSOR) 25 mg tablet Take 12.5 mg by mouth 2 (two) times a day. ??? ondansetron (ZOFRAN) 4 mg tablet Take 4 mg by mouth every 4 (four) hours as needed for nausea or vomiting. ??? oxyCODONE (ROXICODONE) 5 mg immediate release tablet Take 5 mg by mouth every 4 (four) hours asneeded. ??? oxyCODONE (ROXICODONE) 5 mg immediate release tablet Take 10 mg by mouth every 4 (four) hours as needed (prn pain scale 7-10). ??? polyethylene glycol (MIRALAX) 17 gram packet Take 17 g by mouth daily as needed. ??? senna (SENOKOT) 8.6 mg tablet Take 1 tablet by mouth daily. ??? sulfamethoxazole-trimethoprim (BACTRIM,SEPTRA) 800-160 mg per tablet Take 1 tablet by mouth 2 (two) times a day. ??? tamsulosin (FLOMAX) 0.4 mg extended release capsule Take 0.4 mg by mouth nightly. ??? zolpidem (AMBIEN) 5 mg tablet Take 5 mg by mouth nightly as needed for sleep. ??? aspirin (ASPIRIN LOW DOSE) 81 mg tablet take 1 Tablet (81MG) by oral route every day 0 Taking ??? budesonide-formoterol (SYMBICORT) 80-4.5 mcg/actuation inhaler Inhale 1 puff 2 (two) times a day. Taking ??? cyanocobalamin, vitamin B-12, 500 mcg lozenge Take by mouth. Taking ??? diclofenac DR (VOLTAREN) 75 mg EC tablet take 2 Tablet (150MG) by oral route every day (Patientnot taking: Reported on 02/22/2017 ) 0 Not Taking ??? doxepin (SINEquan) 25 mg capsule TAKE 1 CAPSULE TWICE A DAY Taking ??? ferrous fumarate 325 mg (106 mg iron) tablet Take 2 tablets by mouth daily. Taking ??? furosemide (LASIX) 20 mg tablet take 1 tablet by oral route every day (Patient not taking: Reported on 02/22/2017 ) 0 0 Not Taking ??? metFORMIN (GLUCOPHAGE) 500 mg tablet Take 500 mg by mouth 2 (two) times a day with meals. Taking ??? pantoprazole DR (PROTONIX) 40 mg EC tablet take 1 tablet by oral route every day 0 0 Taking ??? potassium chloride ER (potassium chloride ER) 10 mEq CR tablet TAKE ONE TABLET BY MOUTH ONCE DAILY WITH FOOD (Patient not taking: Reported on 02/22/2017 ) 30 0 Not Taking Inpatient Meds: Current Facility-Administered Medications: ??? acetaminophen (TYLENOL) tablet 650 mg, 650 mg, oral, Q4H PRN, Rachna Burt MD, 650 mg at 11/06/17 1535 ??? albuterol (PROVENTIL,VENTOLIN) 2.5 mg/0.5 mL nebulizer solution 5 mg, 5 mg, nebulization, Q6H PRN, Rachna Burt MD ??? amiodarone (PACERONE) tablet 200 mg, 200 mg, oral, BID, Rachna Burt MD, 200 mg at 147 ??? apixaban (ELIQUIS) tablet 5 mg, 5 mg, oral, BID, Rachna Burt MD, 5 mg at 11/07/172146 ??? ascorbic acid (VITAMIN C) tablet/chewable tablet 500 mg, 500 mg, oral, BID, Rachna Burt MD, 500 mg at 11/07/172146 ??? aspirin enteric coated tablet 81 mg, 81 mg, oral, Daily, Rachna Burt MD, 81 mg at ??? atorvastatin (LIPITOR) tablet 20 mg, 20 mg, oral, Daily, Rachna Burt MD, 20 mg at ??? bacitracin 500 unit/gram ointment packet 1 application, 1 application, topical, Daily, Nas De Oliveira DPM, 1 application at 11/07/17 1024 ??? baclofen (LIORESAL) tablet 10 mg, 10 mg, oral, TID with meals, Rachna Burt MD, 10 mg at 11/07/17 1634 ??? bisacodyl (DULCOLAX) suppository 10 mg, 10 mg, rectal, Daily PRN, Jason Shore Jr., NP, 10 mg at 11/06/17 1824 ??? bisacodyl EC (DULCOLAX EC) tablet 5 mg, 5 mg, oral, BID PRN, Jason Shore Jr., BELLA, 5 mg at 11/07/17 1012 ??? budesonide-formoterol (SYMBICORT) 80-4.5 mcg/actuation inhaler 1 puff, 1 puff, inhalation, BID (RT), Rachna Burt MD, 1 puff at 11/08/17 0708 ??? bumetanide (BUMEX) tablet 0.5 mg, 0.5 mg, oral, Daily, Александр Espino Jr., MD, 0.5 mg at 11/07/17 101 ??? camphor-menthol (SARNA) 0.5-0.5 % lotion, , topical, PRN, Rachna Burt MD ??? chlorhexidine (PERIDEX) 0.12 % solution 5 mL, 5 mL, mouth/throat, BID, Rachna Burt MD, 5 mL at 11/07/172147 ??? collagenase 250 unit/gram ointment, , topical, Daily, Rachna Burt MD ??? dextrose (GLUTOSE) 40 % gel 15 g, 15 g, oral, Q15 Min PRN, Jason Shore Jr., BELLA ??? dextrose 50% (concentrated solution) CONCENTRATED solution 25 g, 25 g, intravenous, Q15 Min PRN, Jason Shore Jr., BELLA ??? diphenhydrAMINE (BENADRYL) tab/cap 25 mg, 25 mg, oral, QID PRN, Александр Espino Jr., MD, 25 mgat 11/07/172147 ??? docusate sodium (COLACE) capsule 100 mg, 100 mg, oral, BID, Jason Shore Jr., OWNER/PHOTOGRAPHER, 100 mg at 11/07/172147 ??? ergocalciferol (VITAMIN D) capsule 50,000 Units, 50,000 Units, oral, Weekly, Adam Pastor MD, 50,000 Units at 11/02/17 0719 ??? glucagon injection 1 mg, 1 mg, intramuscular, Q30 Min PRN, Jason Shore Jr., NP ??? ipratropium-albuterol (DUO-NEB) 0.5-2.5 mg/3 mL nebulizer solution 3 mL, 3 mL, nebulization, Q4H PRN (RT), Rachna Burt MD ??? lidocaine (LIDODERM) 5 % patch 1 patch, 1 patch, transdermal, Daily, Jason Shore Jr., BELLA, Stopped at 11/07/172147 ??? metoprolol (LOPRESSOR) tablet 12.5 mg, 12.5 mg, oral, BID, Rachna Burt MD, 12.5 mg at 11/07/172147 ??? miconazole 2 % powder, , topical, BID, Rachna Burt MD ??? ondansetron (ZOFRAN) tablet 4 mg, 4 mg, oral, Q4H PRN, Rachna Burt MD, 4 mg at 11/06/17 1645 ??? oxyCODONE (ROXICODONE) tablet 10 mg, 10 mg, oral, Q4H PRN, Rachna Burt MD, 10 mg at 11/07/17 1419 ??? oxyCODONE (ROXICODONE) tablet 5 mg, 5 mg, oral, Q4H PRN, Rachna Burt MD, 5 mg at 11/01/17 1313 ??? pantoprazole DR (PROTONIX) extended release tablet 40 mg, 40 mg, oral, Daily, Rachna Burt MD, 40 mg at 11/07/17 1012 ??? polyethylene glycol (MIRALAX) packet 17 g, 17 g, oral, BID PRN, Jason Shore Jr., OWNER/PHOTOGRAPHER, 17 g at 11/05/172121 ??? senna (SENOKOT) tablet 1 tablet, 1 tablet, oral, Daily, Rachna Burt MD, 1 tablet at 11/07/17 1011 ??? tamsulosin (FLOMAX) extended release capsule 0.4 mg, 0.4 mg, oral, Nightly, Rachna Burt MD, 0.4 mg at 11/07/172146 ??? zinc sulfate (ZINCATE) capsule 220 mg, 220 mg, oral, Daily, Rachna Burt MD, 220 mg at 11/07/17 1012 ??? zolpidem (AMBIEN) tablet 5 mg, 5 mg, oral, Nightly PRN, Rachna Burt MD, 5 mg at 11/07/172146 SocHx: Social History Substance Use Topics ??? Smoking status: Former Smoker ??? Smokeless tobacco: Never Used ??? Alcohol use No FamHx: History reviewed. No pertinent family history. Review of Systems History from patient and medical records General positive for - fatigue ENT positive for - dysphagia CV positive for - chest pain, dyspnea on exertion, edema, irregular heartbeat and shortness of breath Respiratory positive for - pleuritic pain and shortness of breath GI positive for - change in bowel habits positive for - change in urinary stream MS positive for - gait disturbance, joint pain, joint stiffness and muscular weakness Neuro positive for - weakness All Other ROS Negative BP 93/49 (BP Location: Right arm, Patient Position: Lying) Pulse 80 Temp 37 ??C (98.6 ??F) (Oral) Resp 18 Ht 180.3 cm (5' 11 ) Wt 93.2 kg (205 lb 7.5 oz) SpO2 97% BMI 28.66 kg/m?? Intake/Output Summary (Last 24 hours) at 11/08/17 0731 Last data filed at 11/07/17 1500 Gross per 24 hour Intake 0 ml Output 525 ml Net -525 ml Wt Readings from Last 3 Encounters: 11/06/17 93.2 kg (205 lb 7.5 oz) 10/24/17 88.9 kg (196 lb) 02/22/17 116.1 kg (256 lb) General appearance Alert, no distress Head Normocephalic, without obvious abnormality, atraumatic Throat Oropharynx clear Neck Supple. Trach stoma healing Lungs Clear to auscultation bilaterally, diminished bases Chest wall +tenderness Heart Regular rate and rhythm Abdomen Soft, non-tender. Bowel sounds normal. G tube Extremities + edema Neurologic Diffusely weak CBC: Recent Labs Lab Units 11/07/17 0615 11/03/17 0538 WHITE BLOOD CELLS K/cumm 5.7 5.5 HEMOGLOBIN g/dL 9.5* 9.3* HEMATOCRIT % 31.5* 31.1* PLATELETS K/cumm 205 160 BMP: Recent Labs Lab Units 11/07/17 0615 11/03/17 0538 SODIUM mmol/L 138 139 POTASSIUM PLASMA mmol/L 3.7 4.1 CHLORIDE mmol/L 100 100 CO2 mmol/L 27 29 ANIONGAP mmol/L 11 10 GLUCOSE mg/dL 83 89 BUN SERUM mg/dL 16 14 CREATININE mg/dL 0.76* 0.74* CALCIUM mg/dL 8.5 8.7 ALBUMIN g/dL -- 3.0* ALK PHOS Units/L -- 144* ALT Units/L -- 38 AST Units/L -- 28 BILIRUBIN TOTAL mg/dL -- 0.3 EKG: No results found for this or any previous visit. RADIOLOGY: No results found. 1. Debility: Complicated recent medical course. Comprehensive rehab program. 2. L1 abscess s/p debridement with MRSA empyema: Pain control. F/u with surgery team. Complete course of bactrim. Chest tube out 3. Respiratory failure: S/p trach, decannulated. Aggressive pulm toilet. BDs/inhaled steroids. Dr Espino following. NIPPV as required. H/o COPD and prior tobacco abuse. 4. Dysphagia: S/p PEG. TOWING PILOT, RD f/u. Aspiration precautions 5. Dm2: A1c 4.7%. Metformin held. SSI, accuchecks. RD eval. 6. CAD: ASA, statin, BBlocker 7. HTN: Metoprolol, bumex 8. Afib: Eliquis, amio, metoprolol 9. Urinary retention: Flomax, monitor UOP 10. Dyslipid; Statin 11. Anemia: ACD and ABLA. Monitor cbc, transfuse for hgb under 7 or if symptomatic. Thank you for involving me in this patient's care. I will continue to follow along with you. ?? DVT Prophylaxis: Eliquis ?? GI prophylaxis: PPI ?? Code Status Full Code 35 min were spent in the care of this patient today; this may have included family conferences, nursing conferences and discussion with any consultants Adam Pastor M.D. * Александр Espino Jr., MD - 11/07/2017 7:10 AM CDT Pulmonary / Critical Care Daily Progress Chief Complaint/HPI/Hospital Course: Good night. With physical therapy. Normal pCO2. Comfortable onroom air. Continues to do well without BiPAP. Still with some edema on exam. Standing with assistance but not taking many step still very weak. s yet. Review of Systems: Review of Systems Constitutional: Negative for chills, fatigue and fever. HENT: Negative for congestion, sore throat and trouble swallowing. Respiratory: Negative for cough, chest tightness, shortness of breath and wheezing. Cardiovascular: Negative for chest pain and leg swelling. Gastrointestinal: Negative for diarrhea, nausea and vomiting. Genitourinary: Negative for dysuria and hematuria. Neurological: Positive for weakness. Negative for dizziness and headaches. Psychiatric/Behavioral: Negative for behavioral problems and sleep disturbance. Temp: [36.4 ??C (97.6 ??F)] 36.4 ??C (97.6 ??F) Pulse: [75-79] 78 Resp: [18] 18 BP: (103-116)/(64-74) 103/66 I/O last 2 completed shifts: In: 960 [P.O.:960] Out: 501 [Urine:500; Emesis/NG output:1] No intake/output data recorded. Oxygen / Pulmonary Events Vent settings for last 24 hours: Oxygen Therapy SpO2: 94 % Pulse Oximetry Type: Intermittent Patient Activity: At rest O2 Therapy: None (Room air) O2 Del Method: CPAP/Bi-PAP mask FiO2 (%): 35 % O2 Flow Rate (L/min): 2 L/min] Physical exam: Physical Exam Constitutional: He is oriented to person, place, and time. He appears well- developed. No distress. HENT: Head: Normocephalic. Mouth/Throat: Oropharynx is clear and moist. Eyes: Pupils are equal, round, and reactive to light. Right eye exhibits no discharge. Left eye exhibits no discharge. Cardiovascular: Regular rhythm and normal heart sounds. Tachycardia present. Pulmonary/Chest: Effort normal and breath sounds normal. He has no wheezes. He has no rales. Abdominal: There is no rebound and no guarding. Peg Musculoskeletal: He exhibits edema. Neurological: He is alert and oriented to person, place, and time. Psychiatric: He has a normal mood and affect. Current Facility-Administered Medications: ??? acetaminophen (TYLENOL) tablet 650 mg, 650 mg, oral, Q4H PRN, Rachna Burt MD, 650 mg at 11/06/17 1535 ??? albuterol (PROVENTIL,VENTOLIN) 2.5 mg/0.5 mL nebulizer solution 5 mg, 5 mg, nebulization, Q6H PRN, Rachna Burt MD ??? amiodarone (PACERONE) tablet 200 mg, 200 mg, oral, BID, Rachna Burt MD, 200 mg at ??? apixaban (ELIQUIS) tablet 5 mg, 5 mg, oral, BID, Rachna Burt MD, 5 mg at 11/06/172230 ??? ascorbic acid (VITAMIN C) tablet/chewable tablet 500 mg, 500 mg, oral, BID, Rachna Burt MD, 500 mg at 11/06/172230 ??? aspirin enteric coated tablet 81 mg, 81 mg, oral, Daily, Rachna Burt MD, 81 mg at ??? atorvastatin (LIPITOR) tablet 20 mg, 20 mg, oral, Daily, Rachna Burt MD, 20 mg at ??? bacitracin 500 unit/gram ointment packet 1 application, 1 application, topical, Daily, Nas De Oliveira DPM, 1 application at 11/06/17 0900 ??? baclofen (LIORESAL) tablet 5 mg, 5 mg, oral, TID with meals, Jason Shore Jr. OWNER/PHOTOGRAPHER, 5 mg at 11/06/17 1645 ??? bisacodyl (DULCOLAX) suppository 10 mg, 10 mg, rectal, Daily PRN, Jason Shore Jr., NP, 10 mg at 11/06/171823 ??? bisacodyl EC (DULCOLAX EC) tablet 5 mg, 5 mg, oral, BID PRN, Jason Shore Jr. OWNER/PHOTOGRAPHER, 5 mg at 11/06/172221 ??? budesonide-formoterol (SYMBICORT) 80-4.5 mcg/actuation inhaler 1 puff, 1 puff, inhalation, BID (RT), Rachna Burt MD, 1 puff at 11/06/172026 ??? bumetanide (BUMEX) tablet 0.5 mg, 0.5 mg, oral, Daily, Александр Espino Jr., MD, 0.5 mg at 11/06/17758 ??? chlorhexidine (PERIDEX) 0.12 % solution 5 mL, 5 mL, mouth/throat, BID, Rachna Burt MD, 5 mL at 11/06/172231 ??? collagenase 250 unit/gram ointment, , topical, Daily, Rachna Burt MD ??? dextrose (GLUTOSE) 40 % gel 15 g, 15 g, oral, Q15 Min PRN, Jason Shore Jr., OWNER/PHOTOGRAPHER ??? dextrose 50% (concentrated solution) CONCENTRATED solution 25 g, 25 g, intravenous, Q15 Min PRN, Jason Shore Jr., OWNER/PHOTOGRAPHER ??? diphenhydrAMINE (BENADRYL) tab/cap 25 mg, 25 mg, oral, QID PRN, Александр Espino Jr., MD, 25 mgat 11/07/17522 ??? docusate sodium (COLACE) capsule 100 mg, 100 mg, oral, BID, Jason Shore Jr., BELLA, 100 mg at 11/06/172230 ??? ergocalciferol (VITAMIN D) capsule 50,000 Units, 50,000 Units, oral, Weekly, Adam Pastor MD, 50,000 Units at 11/02/17 0719 ??? glucagon injection 1 mg, 1 mg, intramuscular, Q30 Min PRN, Jason Shore Jr., BELLA ??? ipratropium-albuterol (DUO-NEB) 0.5-2.5 mg/3 mL nebulizer solution 3 mL, 3 mL, nebulization, Q4H PRN (RT), Rachna Burt MD ??? lidocaine (LIDODERM) 5 % patch 1 patch, 1 patch, transdermal, Daily, Jason Shore Jr. OWNER/PHOTOGRAPHER, Stopped at 11/06/172237 ??? metoprolol (LOPRESSOR) tablet 12.5 mg, 12.5 mg, oral, BID, Rachna Burt MD, 12.5 mg at 11/06/172229 ??? miconazole 2 % powder, , topical, BID, Rachna Burt MD ??? ondansetron (ZOFRAN) tablet 4 mg, 4 mg, oral, Q4H PRN, Rachna Burt MD, 4 mg at 11/06/17 1645 ??? oxyCODONE (ROXICODONE) tablet 10 mg, 10 mg, oral, Q4H PRN, Rachna Burt MD, 10 mg at 11/06/172230 ??? oxyCODONE (ROXICODONE) tablet 5 mg, 5 mg, oral, Q4H PRN, Rachna Burt MD, 5 mg at 11/01/17 1313 ??? pantoprazole DR (PROTONIX) extended release tablet 40 mg, 40 mg, oral, Daily, Rachna Burt MD, 40 mg at 11/06/17758 ??? polyethylene glycol (MIRALAX) packet 17 g, 17 g, oral, BID PRN, Jason Shore Jr., OWNER/PHOTOGRAPHER, 17 g at 11/05/172121 ??? senna (SENOKOT) tablet 1 tablet, 1 tablet, oral, Daily, Rachna Burt MD, 1 tablet at 11/06/17758 ??? tamsulosin (FLOMAX) extended release capsule 0.4 mg, 0.4 mg, oral, Nightly, Rachna Burt MD, 0.4 mg at 11/06/172231 ??? zinc sulfate (ZINCATE) capsule 220 mg, 220 mg, oral, Daily, Rachna Burt MD, 220 mg at 11/06/17757 ??? zolpidem (AMBIEN) tablet 5 mg, 5 mg, oral, Nightly PRN, Rachna Burt MD, 5 mg at 11/06/172231 Labs: Labs reviewed: Resolved hyponatremia, hypercarbia. Room air saturation > 90% Recent Results (from the past 24 hour(s)) CBC with auto differential Collection Time: 11/07/17 6:15 AM Result Value Ref Range WBC 5.7 3.8 - 9.9 K/cumm RBC 3.25 (L) 4.30 - 5.80 M/cumm Hgb 9.5 (L) 13.0 - 17.5 g/dL Hct 31.5 (L) 38.9 - 50.3 % MCV 96.9 (H) 81.3 - 96.4 fL MCH 29.2 27.1 - 33.3 pg MCHC 30.2 (L) 32.3 - 35.7 g/dL RDW CV 17.6 (H) 11.1 - 14.9 % RDW SD 63.6 (H) 35.7 - 48.1 fL Plt 205 150 - 400 K/cumm MPV 11.5 9.1 - 12.3 fL NRBC Abs 0.00 0.00 - 0.01 K/cumm Basic metabolic panel Collection Time: 11/07/17 6:15 AM Result Value Ref Range Sodium 138 135 - 145 mmol/L Potassium 3.7 3.3 - 4.9 mmol/L Chloride 100 97 - 110 mmol/L CO2 27 22 - 32 mmol/L BUN 16 8 - 25 mg/dL Glucose 83 70 - 199 mg/dL Creatinine 0.76 (L) 0.80 - 1.30 mg/dL Calcium 8.5 8.5 - 10.3 mg/dL Anion Gap 11 2 - 15 mmol/L Differential, auto Collection Time: 11/07/17 6:15 AM Result Value Ref Range Neutrophil absolute 3.9 1.7 - 6.5 K/cumm Immature granulocyte absolute 0.0 0.0 - 0.1 K/cumm Lymphocytes absolute 0.6 (L) 0.8 - 3.3 K/cumm Monocyte absolute 0.6 0.2 - 0.8 K/cumm Eosinophils absolute 0.6 (H) 0.0 - 0.5 K/cumm Basophils, abs 0.0 0.0 - 0.1 K/cumm Neutrophils 68.4 % Immature granulocytes 0.5 % Lymphocytes 9.7 % Monocytes 10.8 % Eosinophils 10.4 % Basophils 0.2 % eGFR Collection Time: 11/07/17 6:15 AM Result Value Ref Range GFR 94 mL/min/1.73 m2 Imaging: Chest x-ray October 30 improved Diagnostics: Ejection fraction 65%. No vegetations. Mild left atrial enlargement Microbiology: Positive sputum culture for stenotrophomonas on October 13 Assessment & Plan: Assessment/Plan Hyponatremia Assessment & Plan Hyponatremia, resolved. Suspect dilutional. Monitor renal function with diuresis. Still with some edema on exam. Pneumonia Assessment & Plan Completed treatment for pneumonia, empyema prior to transfer to [facility]. Finished Bactrim for stenotrophomonas pneumonia here. Two-view chest x-ray much better. Continue to observe off antibiotics. Diskitis Assessment & Plan Completed debridement, prolonged antibiotic therapy for an L1 diskitis. Continue physical therapy, pain control Hypercapnic respiratory failure ([facility]) Assessment & Plan Successfully decannulated. Comfortable on room air. Doing well without BiPAP COPD (chronic obstructive pulmonary disease) ([facility]) Assessment & Plan Pulmonary function testing when stable. Continue inhaled bronchodilator therapy. Lungs are clear Former smoker Assessment & Plan May meet criteria for lung cancer screen Chronic atrial fibrillation ([facility]) Assessment & Plan Hemodynamically stable. Monitor for bleeding. Continue amiodarone, aspirin, Lipitor, metoprolol, apixaban For today: Off Bactrim for stenotrophomonas pneumonia. Diuretic dose adjusted. Hyponatremia is stable. I suspect dilutional based on physical exam, increased total body water. He is not on a thiazide, SSRI etc. Blood gas noted. Normal pCO2. Continue to follow off BiPAP. Prophylaxis: DVT ppx: Long-term oral anticoagulation At Code Status: Full Code. Александр Espino Jr., MD 11/07/2017 7:13 AM This note was transcribed using Speech Recognition software. As a result, there may be grammatical and spelling errors that are unintended. Every attempt is made to have correct dictation. If there are any questions or major errors, please contact me * Adam Pastor MD - 11/07/2017 6:21 AM CDT Internal Medicine Progress Note Adam Pastor M.D. 11/07/2017 Patient Name: José Miguel Jang Admit Date: 10/24/2017 PCP: Briana Medeiros MD Consult requested by Dr Rachna Burt MD Patient Name: José Miguel Jang PCP: Briana Medeiros MD Date of admission: 10/24/2017 Date of Service: 11/07/2017 Reason for Consultation: Medical Management Slept most of the night. Remains diffusely weak. Breathing seems better. On RA. Dr Espino following. Less edema, continue bumex 0.5. No fever, chills, chest pain, acute SOB. Tolerating eliquis. H/H low, but stable. Glc normal on spot check, 80s. Not requiring metformin. Bowel regimen. Vitals acceptable. Na 138. Watch vol status PMHx: Past Medical History: Diagnosis Date ??? A-fib (CMS/HCC) ??? A-fib (CMS/HCC) history ??? Chronic obstructive pulmonary disease (CMS/HCC) COPD ??? Coronary artery disease ??? Diabetes mellitus (CMS/HCC) ??? HX OTHER MEDICAL DJD ??? Hypertension PSurgHx: Past Surgical History: Procedure Laterality Date ??? BACK SURGERY ??? TOTAL HIP ARTHROPLASTY Bilateral ??? TRACHEOSTOMY All: Allergies Allergen Reactions ??? Penicillins Outpt Meds: Prescriptions Prior to Admission Medication Sig Dispense Refill Last Dose ??? acetaminophen (TYLENOL) 325 mg tablet Take 650 mg by mouth every 4 (four) hours as needed for pain. ??? albuterol (PROVENTIL,VENTOLIN) 2.5 mg/0.5 mL solution for nebulization Take 5 mg by nebulization every 6 (six) hours as needed. ??? amiodarone (PACERONE) 200 mg tablet Take 200 mg by mouth 2 (two) times a day. ??? apixaban (ELIQUIS) 5 mg tablet Take 5 mg by mouth 2 (two) times a day. ??? aspirin 81 mg chewable tablet Take 81 mg by mouth daily. ??? atorvastatin (LIPITOR) 20 mg tablet Take 20 mg by mouth daily. ??? bisacodyl (DULCOLAX) 10 mg suppository Insert 10 mg into the rectum every third day. ??? bumetanide (BUMEX) 0.5 mg tablet Take 0.25 mg by mouth daily. ??? chlorhexidine (PERIDEX) 0.12 % solution Apply 5 mL to the mouth or throat 2 (two) times a day. ??? diphenhydrAMINE (BENADRYL) 25 mg capsule Take 25 mg by mouth 3 (three) times a day as needed for itching. ??? docusate (COLACE) liquid 50 mg/5 mL Take 100 mg by mouth daily. ??? famotidine (PEPCID) 20 mg tablet Take 20 mg by mouth 2 (two) times a day. ??? insulin lispro (HumaLOG) 100 unit/mL injection Inject 0-10 Units under the skin 4 (four) times a day (with meals and nightly). Low dose sliding scale ??? LORazepam (ATIVAN) 2 mg/mL injection Infuse 1 mg into a venous catheter every 6 (six) hours as needed for anxiety. ??? metoprolol (LOPRESSOR) 25 mg tablet Take 12.5 mg by mouth 2 (two) times a day. ??? ondansetron (ZOFRAN) 4 mg tablet Take 4 mg by mouth every 4 (four) hours as needed for nausea or vomiting. ??? oxyCODONE (ROXICODONE) 5 mg immediate release tablet Take 5 mg by mouth every 4 (four) hours asneeded. ??? oxyCODONE (ROXICODONE) 5 mg immediate release tablet Take 10 mg by mouth every 4 (four) hours as needed (prn pain scale 7-10). ??? polyethylene glycol (MIRALAX) 17 gram packet Take 17 g by mouth daily as needed. ??? senna (SENOKOT) 8.6 mg tablet Take 1 tablet by mouth daily. ??? sulfamethoxazole-trimethoprim (BACTRIM,SEPTRA) 800-160 mg per tablet Take 1 tablet by mouth 2 (two) times a day. ??? tamsulosin (FLOMAX) 0.4 mg extended release capsule Take 0.4 mg by mouth nightly. ??? zolpidem (AMBIEN) 5 mg tablet Take 5 mg by mouth nightly as needed for sleep. ??? aspirin (ASPIRIN LOW DOSE) 81 mg tablet take 1 Tablet (81MG) by oral route every day 0 Taking ??? budesonide-formoterol (SYMBICORT) 80-4.5 mcg/actuation inhaler Inhale 1 puff 2 (two) times a day. Taking ??? cyanocobalamin, vitamin B-12, 500 mcg lozenge Take by mouth. Taking ??? diclofenac DR (VOLTAREN) 75 mg EC tablet take 2 Tablet (150MG) by oral route every day (Patientnot taking: Reported on 02/22/2017 ) 0 Not Taking ??? doxepin (SINEquan) 25 mg capsule TAKE 1 CAPSULE TWICE A DAY Taking ??? ferrous fumarate 325 mg (106 mg iron) tablet Take 2 tablets by mouth daily. Taking ??? furosemide (LASIX) 20 mg tablet take 1 tablet by oral route every day (Patient not taking: Reported on 02/22/2017 ) 0 0 Not Taking ??? metFORMIN (GLUCOPHAGE) 500 mg tablet Take 500 mg by mouth 2 (two) times a day with meals. Taking ??? pantoprazole DR (PROTONIX) 40 mg EC tablet take 1 tablet by oral route every day 0 0 Taking ??? potassium chloride ER (potassium chloride ER) 10 mEq CR tablet TAKE ONE TABLET BY MOUTH ONCE DAILY WITH FOOD (Patient not taking: Reported on 02/22/2017 ) 30 0 Not Taking Inpatient Meds: Current Facility-Administered Medications: ??? acetaminophen (TYLENOL) tablet 650 mg, 650 mg, oral, Q4H PRN, Rachna Burt MD, 650 mg at 11/06/17 1535 ??? albuterol (PROVENTIL,VENTOLIN) 2.5 mg/0.5 mL nebulizer solution 5 mg, 5 mg, nebulization, Q6H PRN, Rachna Burt MD ??? amiodarone (PACERONE) tablet 200 mg, 200 mg, oral, BID, Rachna Burt MD, 200 mg at ??? apixaban (ELIQUIS) tablet 5 mg, 5 mg, oral, BID, Rachna Burt MD, 5 mg at 11/06/172230 ??? ascorbic acid (VITAMIN C) tablet/chewable tablet 500 mg, 500 mg, oral, BID, Rachna Burt MD, 500 mg at 11/06/172230 ??? aspirin enteric coated tablet 81 mg, 81 mg, oral, Daily, Rachna Burt MD, 81 mg at ??? atorvastatin (LIPITOR) tablet 20 mg, 20 mg, oral, Daily, Rachna Burt MD, 20 mg at 759 ??? bacitracin 500 unit/gram ointment packet 1 application, 1 application, topical, Daily, Nas De Oliveira DPM, 1 application at 11/06/17 0900 ??? baclofen (LIORESAL) tablet 5 mg, 5 mg, oral, TID with meals, Jason Shore Jr., NP, 5 mg at 11/06/17 1645 ??? bisacodyl (DULCOLAX) suppository 10 mg, 10 mg, rectal, Daily PRN, Jason Shore Jr., BELLA, 10 mg at 11/06/17 1824 ??? bisacodyl EC (DULCOLAX EC) tablet 5 mg, 5 mg, oral, BID PRN, Jason Shore Jr., NP, 5 mg at 11/06/172221 ??? budesonide-formoterol (SYMBICORT) 80-4.5 mcg/actuation inhaler 1 puff, 1 puff, inhalation, BID (RT), Rachna Burt MD, 1 puff at 11/06/172026 ??? bumetanide (BUMEX) tablet 0.5 mg, 0.5 mg, oral, Daily, Александр Espino Jr., MD, 0.5 mg at 11/06/17 0759 ??? chlorhexidine (PERIDEX) 0.12 % solution 5 mL, 5 mL, mouth/throat, BID, Rachna Burt MD, 5 mL at 11/06/172231 ??? collagenase 250 unit/gram ointment, , topical, Daily, Rachna Burt MD ??? dextrose (GLUTOSE) 40 % gel 15 g, 15 g, oral, Q15 Min PRN, Jason Shore Jr., OWNER/PHOTOGRAPHER ??? dextrose 50% (concentrated solution) CONCENTRATED solution 25 g, 25 g, intravenous, Q15 Min PRN, Jason Shore Jr., NP ??? diphenhydrAMINE (BENADRYL) tab/cap 25 mg, 25 mg, oral, QID PRN, Александр Espino Jr., MD, 25 mgat 11/07/17 0714 ??? docusate sodium (COLACE) capsule 100 mg, 100 mg, oral, BID, Jason Shore Jr., OWNER/PHOTOGRAPHER, 100 mg at 11/06/172230 ??? ergocalciferol (VITAMIN D) capsule 50,000 Units, 50,000 Units, oral, Weekly, Adam Pastor MD, 50,000 Units at 11/02/17 0719 ??? glucagon injection 1 mg, 1 mg, intramuscular, Q30 Min PRN, Jason Shore Jr., BELLA ??? ipratropium-albuterol (DUO-NEB) 0.5-2.5 mg/3 mL nebulizer solution 3 mL, 3 mL, nebulization, Q4H PRN (RT), Rachna Burt MD ??? lidocaine (LIDODERM) 5 % patch 1 patch, 1 patch, transdermal, Daily, Jason Shore Jr., BELLA, Stopped at 11/06/172237 ??? metoprolol (LOPRESSOR) tablet 12.5 mg, 12.5 mg, oral, BID, Rachna Burt MD, 12.5 mg at 11/06/172229 ??? miconazole 2 % powder, , topical, BID, Rachna Burt MD ??? ondansetron (ZOFRAN) tablet 4 mg, 4 mg, oral, Q4H PRN, Rachna Burt MD, 4 mg at 11/06/17 1645 ??? oxyCODONE (ROXICODONE) tablet 10 mg, 10 mg, oral, Q4H PRN, Rachna Burt MD, 10 mg at 11/06/172230 ??? oxyCODONE (ROXICODONE) tablet 5 mg, 5 mg, oral, Q4H PRN, Rachna Burt MD, 5 mg at 11/01/17 1313 ??? pantoprazole DR (PROTONIX) extended release tablet 40 mg, 40 mg, oral, Daily, Rachna Burt MD, 40 mg at 11/06/17 0759 ??? polyethylene glycol (MIRALAX) packet 17 g, 17 g, oral, BID PRN, Jason Shore Jr., OWNER/PHOTOGRAPHER, 17 g at 11/05/172121 ??? senna (SENOKOT) tablet 1 tablet, 1 tablet, oral, Daily, Rachna Burt MD, 1 tablet at 11/06/17 0759 ??? tamsulosin (FLOMAX) extended release capsule 0.4 mg, 0.4 mg, oral, Nightly, Rachna Burt MD, 0.4 mg at 11/06/172231 ??? zinc sulfate (ZINCATE) capsule 220 mg, 220 mg, oral, Daily, Rachna Burt MD, 220 mg at 11/06/17 0758 ??? zolpidem (AMBIEN) tablet 5 mg, 5 mg, oral, Nightly PRN, Rachna Burt MD, 5 mg at 11/06/172231 SocHx: Social History Substance Use Topics ??? Smoking status: Former Smoker ??? Smokeless tobacco: Never Used ??? Alcohol use No FamHx: History reviewed. No pertinent family history. Review of Systems History from patient and medical records General positive for - fatigue ENT positive for - dysphagia CV positive for - chest pain, dyspnea on exertion, edema, irregular heartbeat and shortness of breath Respiratory positive for - pleuritic pain and shortness of breath GI positive for - change in bowel habits positive for - change in urinary stream MS positive for - gait disturbance, joint pain, joint stiffness and muscular weakness Neuro positive for - weakness All Other ROS Negative BP 103/66 (BP Location: Right arm, Patient Position: Lying) Pulse 78 Temp 36.4 ??C (97.6 ??F) (Oral) Resp 18 Ht 180.3 cm (5' 11 ) Wt 93.2 kg (205 lb 7.5 oz) SpO2 94% BMI 28.66 kg/m?? Intake/Output Summary (Last 24 hours) at 11/07/17 0731 Last data filed at 11/07/17 0446 Gross per 24 hour Intake 960 ml Output 501 ml Net 459 ml Wt Readings from Last 3 Encounters: 11/06/17 93.2 kg (205 lb 7.5 oz) 10/24/17 88.9 kg (196 lb) 02/22/17 116.1 kg (256 lb) General appearance Alert, no distress Head Normocephalic, without obvious abnormality, atraumatic Throat Oropharynx clear Neck Supple. Trach stoma healing Lungs Clear to auscultation bilaterally, diminished bases Chest wall +tenderness Heart Regular rate and rhythm Abdomen Soft, non-tender. Bowel sounds normal. G tube Extremities + edema Neurologic Diffusely weak CBC: Recent Labs Lab Units 11/07/17 0615 11/03/17 0538 WHITE BLOOD CELLS K/cumm 5.7 5.5 HEMOGLOBIN g/dL 9.5* 9.3* HEMATOCRIT % 31.5* 31.1* PLATELETS K/cumm 205 160 BMP: Recent Labs Lab Units 11/07/17 0615 11/03/17 0538 SODIUM mmol/L 138 139 POTASSIUM PLASMA mmol/L 3.7 4.1 CHLORIDE mmol/L 100 100 CO2 mmol/L 27 29 ANIONGAP mmol/L 11 10 GLUCOSE mg/dL 83 89 BUN SERUM mg/dL 16 14 CREATININE mg/dL 0.76* 0.74* CALCIUM mg/dL 8.5 8.7 ALBUMIN g/dL -- 3.0* ALK PHOS Units/L -- 144* ALT Units/L -- 38 AST Units/L -- 28 BILIRUBIN TOTAL mg/dL -- 0.3 EKG: No results found for this or any previous visit. RADIOLOGY: No results found. 1. Debility: Complicated recent medical course. Comprehensive rehab program. 2. L1 abscess s/p debridement with MRSA empyema: Pain control. F/u with surgery team. Complete course of bactrim. Chest tube out 3. Respiratory failure: S/p trach, decannulated. Aggressive pulm toilet. BDs/inhaled steroids. Dr Espino following. NIPPV as required. H/o COPD and prior tobacco abuse. 4. Dysphagia: S/p PEG. TOWING PILOT, RD f/u. Aspiration precautions 5. Dm2: A1c 4.7%. Metformin held. SSI, accuchecks. RD eval. 6. CAD: ASA, statin, BBlocker 7. HTN: Metoprolol, bumex 8. Afib: Eliquis, amio, metoprolol 9. Urinary retention: Flomax, monitor UOP 10. Dyslipid; Statin 11. Anemia: ACD and ABLA. Monitor cbc, transfuse for hgb under 7 or if symptomatic. Thank you for involving me in this patient's care. I will continue to follow along with you. ?? DVT Prophylaxis: Eliquis ?? GI prophylaxis: PPI ?? Code Status Full Code 35 min were spent in the care of this patient today; this may have included family conferences, nursing conferences and discussion with any consultants Adam Pastor M.D. * Isabell Garcia RRT - 11/06/2017 8:33 PM CDT RT: Pt in bed with no signs of s.o.b. Pt takes Symbicort BID at home. Continue symbicort. * Rachna Burt MD - 11/06/2017 7:49 AM CDT [facility] Medicine Progress Note NAME: José Miguel Jang AGE: 66 y.o. : 1950 Date of Note: 11/06/2017 REHABILITATION PROGRESS NOTE Physician Physical Assessment/ Progress Note . Rehab Impairment Code: Impairment Code Group: Debility Date of onset: Date of Onset: 07/29/17 Date of admission: 10/24/2017 Subjective: Slept. Bright affect. Expressing wants and needs. Adequate eye contact. Endurance improving. Trach stoma slowly healing. No O2 via NC needed. Tolerating BiPAP. Pulmonology following. Skin assessed, some redness in the medial gluteal folds. Continues making slow, but steady progress. Back pain, on lido patch and K-pad. Intermittent nausea better on Zofran. + BM. PEG in place. Consider removal as po intake improves. Max assist with slide board transfer. Generalized weakness. Back incision c/d/i. Wound care following. Santyl to an area of partial dehiscence. No erythema. Encouraged po intake. Continent of bowel and bladder. Edema improved. Bumex as tolerated. On eliquis. Anemia, monitor. Glucos e overall controlled. Podiatry has seen for diabetic foot care. No fever chills, chest pain , or acute sob. Family supportive. PHYSICAL EXAMINATION: Vitals: 11/05/17 2118 11/06/17 0517 11/06/17 0755 06/03/18 0809 BP: 111/59 103/56 113/74 BP Location: Right arm Right arm Patient Position: Lying Sitting Pulse: 82 78 79 Resp: 16 Temp: 36.6 ??C (97.8 ??F) TempSrc: Oral SpO2: 93% 94% 90% Weight: Height: Physical exam:?? GENERAL: Pleasant and in no acute distress MENTAL STATUS: ??Awake, alert and oriented to person, place and time with normal attention span, insight, and concentration. ??Naming and repetition are normal. ??Remote and recent memory intact. ??Fund of knowledge is appropriate. SPEECH: ??Fluent, non-dysarthric, no aphasia noted CRANIAL NERVES: Visual herrera are full on confrontation. ??Pupils are equally round and reactive tolight??bilaterally. Extraocular movements are??full and intact. No nystagmus is noted. ??There is no loss of sensation over the face. ??There is no facial weakness or asymmetry. ??Hearing intact bilaterally to finger rubbing. Uvula and palate elevate in the midline. Shoulder shrug is symmetric. ??Tongue protrudes in the midline. MOTOR: Generalized weakness. Moves all extremities. BL LE: hip flexors 3/5, knee extension and flexion 4/5, BL DF 3/5 Bulk and tone are nomal. ??No abnormal movements are noted. REFLEXES: 1+ and symmetric in bilateral upper extremities. SENSORY: Intact to light??touch in all four extremities.?No extinction with bilateral stimulation. COORDINATION: ??Normal GAIT AND STATION: Not tested, per therapy notes CARDIOVASCULAR: Regular rate and rhythm. ??No murmurs, rubs, gallops or carotid bruits. LUNGS: Clear to auscultation bilaterally. No wheezes, rhonchi or rales. ABDOMEN: ??Soft and non-tender.?Normal bowel sounds were noted. EXTREMITIES: ??No edema, back incision dehisced IMPRESSION: Rehab Diagnosis: Respiratory Failure Impairment Code Group: Debility Physician Problem List/ Comorbidities: Active Problems: Chronic atrial fibrillation (CMS/HCC) Former smoker COPD (chronic obstructive pulmonary disease) (CMS/HCC) Hypercapnic respiratory failure (CMS/HCC) Diskitis Pneumonia Hyponatremia MEDICAL PLAN: 1. Debility: ??Complicated recent medical course. ??Comprehensive inpatient rehabilitation, family training, structured environment. 2. 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 ??F/u with surgery team. ??Complete course of bactrim. ??Chest tube out. Wound care following back incision. 3. Respiratory failure: ??S/p trach, decannulated. ??Aggressive pulm toilet. ??BDs/inhaled steroids. ??Dr Espino following. NIPPV as required. ??H/o COPD and prior tobacco abuse. 4. Dysphagia: ??S/p PEG. ??TOWING PILOT, RD f/u. ??Aspiration precautions 5. Dm2: ??A1c 4.7%: prudent diet, diabetic education. ??Metformin, SSI, accuchecks. ??RD eval. 6. CAD: ??ASA, statin, BBlocker 7. HTN: ??Metoprolol, bumex 8. Afib: ??Eliquis, amio, metoprolol 9. Urinary retention: ??Flomax, monitor UOP 10. Dyslipid; ??Statin 11. Anemia: ??ACD and ABLA. ??Monitor cbc, transfuse for hgb under 7 or if symptomatic. 12. Nutrition: rd consult. ?? * DVT prophylaxsis: eliquis * GI prophylaxsis: ppi CODE STATUS: Full Code ALLERGY: Allergies Allergen Reactions ??? Penicillins Current Facility-Administered Medications: ??? acetaminophen (TYLENOL) tablet 650 mg, 650 mg, oral, Q4H PRN, Rachna Burt MD, 650 mg at 11/02/17 1752 ??? albuterol (PROVENTIL,VENTOLIN) 2.5 mg/0.5 mL nebulizer solution 5 mg, 5 mg, nebulization, Q6H PRN, Rachna Burt MD ??? amiodarone (PACERONE) tablet 200 mg, 200 mg, oral, BID, Rachna Burt MD, 200 mg at 758 ??? apixaban (ELIQUIS) tablet 5 mg, 5 mg, oral, BID, Rachna Burt MD, 5 mg at 11/06/17 4783 ??? ascorbic acid (VITAMIN C) tablet/chewable tablet 500 mg, 500 mg, oral, BID, Rachna Burt MD, 500 mg at 11/06/17 0800 ??? aspirin enteric coated tablet 81 mg, 81 mg, oral, Daily, Rachna Burt MD, 81 mg at ??? atorvastatin (LIPITOR) tablet 20 mg, 20 mg, oral, Daily, Rachna Burt MD, 20 mg at ??? bacitracin 500 unit/gram ointment packet 1 application, 1 application, topical, Daily, Nas De Oliveira DPM, 1 application at 11/06/17 0900 ??? baclofen (LIORESAL) tablet 5 mg, 5 mg, oral, TID with meals, Jason Shore Jr., NP, 5 mg at 11/06/17 1150 ??? bisacodyl (DULCOLAX) suppository 10 mg, 10 mg, rectal, Daily PRN, Jason Shore Jr., OWNER/PHOTOGRAPHER, 10 mg at 10/29/172138 ??? bisacodyl EC (DULCOLAX EC) tablet 5 mg, 5 mg, oral, BID PRN, Jason Shore Jr. OWNER/PHOTOGRAPHER, 5 mg at 11/06/17 0759 ??? budesonide-formoterol (SYMBICORT) 80-4.5 mcg/actuation inhaler 1 puff, 1 puff, inhalation, BID (RT), Rachna Burt MD, 1 puff at 11/06/17 0809 ??? bumetanide (BUMEX) tablet 0.5 mg, 0.5 mg, oral, Daily, Александр Espino Jr., MD, 0.5 mg at 11/06/17 0759 ??? chlorhexidine (PERIDEX) 0.12 % solution 5 mL, 5 mL, mouth/throat, BID, Rachna Burt MD, 5 mL at 11/06/17 0800 ??? collagenase 250 unit/gram ointment, , topical, Daily, Rachna Burt MD ??? dextrose (GLUTOSE) 40 % gel 15 g, 15 g, oral, Q15 Min PRN, Jason Shore Jr., OWNER/PHOTOGRAPHER ??? dextrose 50% (concentrated solution) CONCENTRATED solution 25 g, 25 g, intravenous, Q15 Min PRN, Jason Shore Jr., BELLA ??? diphenhydrAMINE (BENADRYL) tab/cap 25 mg, 25 mg, oral, QID PRN, Александр Espino Jr., MD, 25 mgat 11/06/17 0027 ??? docusate sodium (COLACE) capsule 100 mg, 100 mg, oral, BID, Jason Shore Jr., BELLA, 100 mg at 11/06/17 0758 ??? ergocalciferol (VITAMIN D) capsule 50,000 Units, 50,000 Units, oral, Weekly, Adam Pastor MD, 50,000 Units at 11/02/17 0719 ??? glucagon injection 1 mg, 1 mg, intramuscular, Q30 Min PRN, Jason Shore Jr., BELLA ??? ipratropium-albuterol (DUO-NEB) 0.5-2.5 mg/3 mL nebulizer solution 3 mL, 3 mL, nebulization, Q4H PRN (RT), Rachna Burt MD ??? lidocaine (LIDODERM) 5 % patch 1 patch, 1 patch, transdermal, Daily, Jason Shore Jr., NP, 1patch at 11/06/17 0801 ??? metoprolol (LOPRESSOR) tablet 12.5 mg, 12.5 mg, oral, BID, Rachna Burt MD, 12.5 mg at 11/06/17 0758 ??? miconazole 2 % powder, , topical, BID, Rachna Burt MD ??? ondansetron (ZOFRAN) tablet 4 mg, 4 mg, oral, Q4H PRN, Rachna Burt MD, 4 mg at 11/03/17 1010 ??? oxyCODONE (ROXICODONE) tablet 10 mg, 10 mg, oral, Q4H PRN, Rachna Burt MD, 10 mg at 11/06/17 0759 ??? oxyCODONE (ROXICODONE) tablet 5 mg, 5 mg, oral, Q4H PRN, Rachna Burt MD, 5 mg at 11/01/17 1313 ??? pantoprazole DR (PROTONIX) extended release tablet 40 mg, 40 mg, oral, Daily, Rachna Burt MD, 40 mg at 11/06/17758 ??? polyethylene glycol (MIRALAX) packet 17 g, 17 g, oral, BID PRN, Jason Shore Jr., OWNER/PHOTOGRAPHER, 17 g at 11/05/172121 ??? senna (SENOKOT) tablet 1 tablet, 1 tablet, oral, Daily, Rachna Burt MD, 1 tablet at 11/06/17758 ??? tamsulosin (FLOMAX) extended release capsule 0.4 mg, 0.4 mg, oral, Nightly, Rachna Burt MD, 0.4 mg at 11/05/172118 ??? zinc sulfate (ZINCATE) capsule 220 mg, 220 mg, oral, Daily, Rachna Burt MD, 220 mg at 11/06/17757 ??? zolpidem (AMBIEN) tablet 5 mg, 5 mg, oral, Nightly PRN, Rachna Burt MD, 5 mg at 11/03/172129 Current functional status: PT Functional Mobility: AM: supine-->sit EOB with max assist x1 and bedrail, bed-->WC with max assist x1 via slide board to left side (pt incurred small skin tear on right forearm during slide board transfer, RN notified, pt bandaged), WC-->mat with max assist x2 via slide board to right side (another small skin tear on dorsal left hand, RN notified and pt bandaged), reports back muscle s pasms in sitting on edge of mat requesting to lay down, sit-->supine with mod assist x1, supine-->sit with max assist x1, sit<-->stand x2 reps in the white stand aide device with max assist x2 (pt fatigued, couldn't tolerate), transfers mat-->WC with total assist via stand aide device and 2-person assist. PM: WC-->mat with max assit x2 via white stand aide, sit<-->stand training from edge of mat (via white stand aide for increased support) with max assist x2 - x6 reps until pt fatigued, transfers WC-->bed with max assist x2 via white stand aide, sit-->supine withmod assist, rolls SARAH with mod assist and SARAH bedrails, brief/pants changed in bed, etc. Both AM and PM PT sessions have been significantly limited due to pt's increasing low back pain and muscle spasms which radiate down SARAH legs as well, despite having pain meds and muscle relaxer prior to PT sessions. Pt is also very fatigued and demonstrates poor endurance with attempts at repetitive sit<-->stand training w/ the white stand aide device for SARAH LE support. Despite elevated mat height and use of stand aide, pt very debilitated and fatigues fast with standing, needing max assist x2 forinitial standing and for upright posture as pt tends to lay forward on the stand aide bars, unable to erect himself while standing. Pt was less able to assist with slide board transfers, needing 2-person assist for that as well. Pt is very motivated and cooperative and appreciative with PT, but cannot tolerate much activity w/o several rest breaks or lying down to calm back spasms. Pt to benefit from continued PT services to address deficits and maximize functional abilities. Continue per plan of care. OT Functional Mobility: Pt. completes supine to sit max assist and 2 person DEP for sit to stand with manual stand aid. Pt able to assist slightly more when pulling self up in manual sit to stand this date OT Self Care: DEP to minimal assist for self care with 1 to 2 people. Pt using rolling shower chairwith sarah supports and manual stand aid 2 person with LE dressing. Pt demonstrates general decreasedbalance, endurance, strength and sensation. Pt will benefit from continued skilled OT to promote IND toward goals. Pt. vomiting this AM and RN notified. OT Cognition: Appears WNL OT Communication: decreased vocal strength at times. TOWING PILOT Cognition: WFL TOWING PILOT Communication: WFL TOWING PILOT Swallowing: WFL: Regular consistency with thin liquids, tolerating diet well Patient/caregiver goals:Patient and Family Goals: to return home Pre hospital Living environment: Home Setting: Split level home Prehospital Lives With: Spouse;Adult children REVIEW OF DATA: No results found for this or any previous visit (from the past 24 hour(s)). REVIEW OF IMAGING: Imaging (Last 96 hours) 10/22 1037 XR Chest 1 Vw REHABILITATION DIAGNOSIS: Impairment Code Group: Debility REHAB PLAN OF CARE: The Interdisciplinary Team will work collaboratively to address the patient problems and goals to be managed by the Individualized Interdisciplinary Plan of Care. Rehabilitation Precautions/Restrictions: Falls;MRSA colonization;Isolation Multi-Disciplinary Problems Active Problems Problem: Health Behavior: Start Date: 10/24/17 Goal Start Date End Date Understanding of discharge needs will improve 10/24/17 -- Goal Intervention Frequency Start Date End Date Discuss information regarding discharge instructions -- 10/24/17 -- Goal Intervention Frequency Start Date End Date Identify discharge learning needs (meds, wound care, etc) -- 10/24/17 -- Goal Intervention Frequency Start Date End Date Collaborate with case management -- 10/24/17 -- Intervention Details: (Coordinate discharge planning if the patient needs post- hospital services onphysician order or complex needs related to functional status, cognitive ability, or social supportsystem) Goal Intervention Frequency Start Date End Date Arrange for needed discharge resources and transportation as appropriate -- 10/24/17 -- Goal Intervention Frequency Start Date End Date Identify discharge barriers -- 10/24/17 -- Goal Intervention Frequency Start Date End Date Collaborate with spanish interpreter -- 10/24/17 -- Problem: Lack of Knowledge: Start Date: 10/25/17 Goal Start Date End Date Ability to state ways to decrease the risk of falls will improve 10/25/17 -- Goal Intervention Frequency Start Date End Date Teach fall prevention measures -- 10/25/17 -- Goal Intervention Frequency Start Date End Date Teach information regarding appropriate environmental changes -- 10/25/17 -- Problem: Safety: Start Date: 10/25/17 Goal Start Date End Date Will remain free from falls 10/25/17 -- Goal Intervention Frequency Start Date End Date Assess risk factors for falls -- 10/25/17 -- Intervention Details: (including medications) Goal Intervention Frequency Start Date End Date Implement fall prevention measures -- 10/25/17 -- Goal Intervention Frequency Start Date End Date Collaborate with other disciplines -- 10/25/17 -- Intervention Details: (PT, OT, Pharmacy, MD, etc.) Goal Start Date End Date Will remain free from injury from falls 10/25/17 -- Goal Intervention Frequency Start Date End Date Provide safe environment for conduction of activities of daily living -- 10/25/17 -- Goal Start Date End Date Will remain free from falls and injury in home environment 10/25/17 -- Goal Intervention Frequency Start Date End Date Assess environmental risk factors -- 10/25/17 -- Problem: Activity: Start Date: 10/25/17 Goal Start Date End Date Mobility will improve 10/25/17 -- Goal Intervention Frequency Start Date End Date Encourage mobilization to extent of ability -- 10/25/17 -- Goal Intervention Frequency Start Date End Date Perform repositioning -- 10/25/17 -- Goal Intervention Frequency Start Date End Date Collaborate with physical therapy -- 10/25/17 -- Problem: Lack of Knowledge: Start Date: 10/25/17 Goal Start Date End Date Understanding of ways to prevent future skin breakdown will improve 10/25/17 -- Goal Intervention Frequency Start Date End Date Discuss precautions to protect skin integrity -- 10/25/17 -- Goal Intervention Frequency Start Date End Date Discuss treatment plan for related conditions -- 10/25/17 -- Goal Start Date End Date Ability to identify appropriate dietary choices will improve 10/25/17 -- Goal Intervention Frequency Start Date End Date Discuss dietary adjustments -- 10/25/17 -- Problem: Nutritional: Start Date: 10/25/17 Goal Start Date End Date Dietary intake will improve 10/25/17 -- Goal Intervention Frequency Start Date End Date Assess nutritional status -- 10/25/17 -- Goal Intervention Frequency Start Date End Date Collaborate with dietitian -- 10/25/17 -- Goal Intervention Frequency Start Date End Date Assist appropriate dietary choices -- 10/25/17 -- Goal Start Date End Date Ability to maintain a balanced intake and output will improve 10/25/17 -- Goal Intervention Frequency Start Date End Date Assess intake and output -- 10/25/17 -- Problem: Skin Integrity: Start Date: 10/25/17 Goal Start Date End Date Risk for impaired skin integrity will decrease 10/25/17 -- Goal Intervention Frequency Start Date End Date Identify risk factors for impaired skin integrity and/or pressure injuries -- 10/25/17 -- Goal Intervention Frequency Start Date End Date Monitor medication effects -- 10/25/17 -- Goal Intervention Frequency Start Date End Date Implement precautions to protect skin integrity -- 10/25/17 -- Goal Intervention Frequency Start Date End Date Use moisturizing agent to dry skin -- 10/25/17 -- Goal Intervention Frequency Start Date End Date Perform cleansing of skin when soiled -- 10/25/17 -- Goal Intervention Frequency Start Date End Date Provide pressure-relief bed or mattress -- 10/25/17 -- Goal Start Date End Date Ability to demonstrate warm and dry skin will improve 10/25/17 -- Goal Intervention Frequency Start Date End Date Monitor skin integrity, appearance and/or temperature -- 10/25/17 -- Goal Start Date End Date Circulation will improve to fullest extent possible 10/25/17 -- Goal Intervention Frequency Start Date End Date Assess circulation, sensation and/or motion of extremity -- 10/25/17 -- Problem: Bladder/Voiding Start Date: 10/25/17 Goal Start Date End Date LTG - Patient will achieve acceptable level of continence 10/25/17 -- Goal Start Date End Date STG - Patient demonstrates no accidents 10/25/17 -- Goal Intervention Frequency Start Date End Date Encourage toileting PRN 10/25/17 -- Goal Intervention Frequency Start Date End Date Educate patient about medications PRN 10/25/17 -- Problem: Bowel Elimination Start Date: 10/25/17 Goal Start Date End Date LTG - Patient will have regular and routine bowel evacuation 10/25/17 -- Goal Start Date End Date LTG - Patient will complete bowel elimination 10/25/17 -- Goal Start Date End Date STG - Patient maintains skin integrity 10/25/17 -- Goal Intervention Frequency Start Date End Date Educate patient about ostomy appliances, correct application, protection of skin PRN 10/25/17 -- Goal Start Date End Date STG - Patient will verbalize signs and symptoms of constipation and how to prevent/alleviate 10/25/17 -- Goal Intervention Frequency Start Date End Date Encourage use of aids (stool softener, laxative, suppository) PRN 10/25/17 -- Goal Intervention Frequency Start Date End Date Encourage adjustment and monitoring of fluid intake PRN 10/25/17 -- Goal Intervention Frequency Start Date End Date Teach patient about symptoms of impaction PRN 10/25/17 -- Goal Intervention Frequency Start Date End Date Educate patient about effect of fluid intake on bowel movement PRN 10/25/17 -- Goal Intervention Frequency Start Date End Date Educate patient about adequate fluid intake PRN 10/25/17 -- Goal Start Date End Date STG - Patient will be continent of stool 10/25/17 -- Goal Start Date End Date STG - Patient verbalizes knowledge about relationship between diet, fluid intake, activity and medication on constipation 10/25/17 -- Goal Intervention Frequency Start Date End Date Educate patient about medications PRN 10/25/17 -- Goal Intervention Frequency Start Date End Date Educate patient about adequate fluid intake PRN 10/25/17 -- Problem: Breathing Start Date: 10/25/17 Goal Start Date End Date STG - Respiratory rate and effort will be within normal limits for the patient 10/25/17 -- Goal Intervention Frequency Start Date End Date Provide oxygen therapy as ordered PRN 10/25/17 -- Goal Intervention Frequency Start Date End Date Monitor oygen saturation PRN 10/25/17 -- Goal Intervention Frequency Start Date End Date Encourage incentive spirometer x 10 each hour while awake PRN 10/25/17 -- Goal Intervention Frequency Start Date End Date Encourage/perform oral hygiene as appropriate PRN 10/25/17 -- Goal Intervention Frequency Start Date End Date Collaborate with respiratory therapy to administer medications/treatments PRN 10/25/17 -- Goal Start Date End Date STG - Patient/family will be able to verbalize oxygen safety precautions 10/25/17 -- Goal Intervention Frequency Start Date End Date Educate patient about oxygen PRN 10/25/17 -- Goal Start Date End Date STG - Patient will utilize incentive spirometer 10/25/17 -- Goal Intervention Frequency Start Date End Date Encourage incentive spirometer x 10 each hour while awake PRN 10/25/17 -- Goal Intervention Frequency Start Date End Date Encourage use of incentive spirometer PRN 10/25/17 -- Goal Start Date End Date STG - Patient performs or directs assisted coughing 10/25/17 -- Goal Intervention Frequency Start Date End Date Instruct on coughing and deep breathing PRN 10/25/17 -- Goal Intervention Frequency Start Date End Date Educate patient about forced cough PRN 10/25/17 -- Goal Intervention Frequency Start Date End Date Teach patient about assistive cough PRN 10/25/17 -- Problem: Pain Start Date: 10/25/17 Goal Start Date End Date STG - Pain is manageable through therapies 10/25/17 -- Goal Start Date End Date STG - Patient will verbalize an acceptable level of pain 10/25/17 -- Problem: OT Misc Start Date: 10/25/17 Goal Start Date End Date LTG - Misc 1 10/25/17 -- Goal Details: Pt to dress modified IND Goal Start Date End Date [facility] [place] 2 10/25/17 -- Goal Details: Pt to groom modified IND Goal Start Date End Date [facility] [place] 3 10/25/17 -- Goal Details: Pt to bathe with transfer modified IND Goal Start Date End Date [facility] [place] 4 10/25/17 -- Goal Details: Pt to toilet with transfer modified IND Goal Start Date End Date [facility] [place] 5 10/25/17 -- Goal Details: Pt to complete UE HEP with IND to promote IND with self care and functional transfers Problem: Cognitive: Start Date: 10/25/17 Goal Start Date End Date [facility] 1 10/25/17 -- Goal Details: Patient will execute multiple elements of a task with supervision Goal Start Date End Date [facility] 2 10/25/17 -- Goal Details: Patient will increase problem solving to complete tasks at 90% or with supervision Problem: Physical Regulation: Start Date: 10/25/17 Goal Start Date End Date [facility] 3 10/25/17 -- Goal Details: Patient will increase general strength/coordination through various exercises with supervision until disch Problem: Respiratory: Start Date: 10/25/17 Goal Start Date End Date [facility] 4 10/25/17 -- Goal Details: Patient will maintain/increase SPO2 by 1% in at least one session prior to disch Goal Start Date End Date [facility] 5 10/25/17 -- Goal Details: Patient will increase pulmonary function through various exercises with supervision until disch Problem: PT [facility] [place] Start Date: 10/25/17 Goal Start Date End Date [facility] [place] 1 10/25/17 -- Goal Details: Pt will roll SARAH and supine<-->sit EOB with supervision and bedrails as needed.Pt will sit<-->stand with minimum assist and appropriate assistive device. Pt will transfer bed<-->wheelchair/chair with minimum assist and appropriate assistive device. Goal Start Date End Date [facility] [place] 2 10/25/17 -- Goal Details: Pt will ambulate 150' w/ minimum assist and appropriate assistive device. Pt will ambulate up/down 4 stairs with mod assist and SARAH rails. Goal Start Date End Date [facility] [place] 3 10/25/17 -- Goal Details: Pt will propel WC 150' with supervision and extra time. Goal Start Date End Date [facility] - [facility] [place] 4 10/25/17 -- Goal Details: Pt will complete SARAH LE HEP x15 reps with supervision. Goal Start Date End Date [facility] [place] 5 10/25/17 -- Goal Details: Pt and/or family will verbalize and demonstrate understanding of pt's safety and mobility needs upon discharge. * Rachna Burt MD - 11/05/2017 4:08 PM CDT [facility] Rehabilitation Medicine Progress Note NAME: José Miguel Jang AGE: 66 y.o. : 1950 Date of Note: 11/05/2017 REHABILITATION PROGRESS NOTE Physician Physical Assessment/ Progress Note . Rehab Impairment Code: Impairment Code Group: Debility Date of onset: Date of Onset: 07/29/17 Date of admission: 10/24/2017 Subjective: Slept. Seen in bed this morning. Trach stoma slowly healing. No O2 via NC needed. Tolerating BiPAP.Pulmonology following. Making slow steady progress. Back pain better with lido patch and K-pad. Intermittent nausea better on Zofran. + BM. PEG in place. Consider removal as po intake improves. Still endurance significantly compromised. Max assist with slide board transfer. Generalized weakness. Back incision c/d/i. Wound care following. Santyl to an area of partial dehiscence. No erythema. Encouraged po intake. Continent of bowel and bladder. Edema improved. Bumex as tolerated. On eliquis. Anemia, monitor. Glucose overall controlled. Podiatry has seen for diabetic foot care. No fever chills,chest pain , or acute sob. Family supportive. PHYSICAL EXAMINATION: Vitals: 11/04/17 2234 11/05/17 0405 11/05/17 0801 11/05/17 0927 BP: 108/60 92/49 104/66 BP Location: Right arm Right arm Patient Position: Lying Sitting Pulse: 88 86 88 Resp: 18 Temp: 36.9 ??C (98.5 ??F) TempSrc: Oral SpO2: 97% 90% 95% Weight: Height: Physical exam:?? GENERAL: Pleasant and in no acute distress MENTAL STATUS: ??Awake, alert and oriented to person, place and time with normal attention span, insight, and concentration. ??Naming and repetition are normal. ??Remote and recent memory intact. ??Fund of knowledge is appropriate. SPEECH: ??Fluent, non-dysarthric, no aphasia noted CRANIAL NERVES: Visual herrera are full on confrontation. ??Pupils are equally round and reactive tolight??bilaterally. Extraocular movements are??full and intact. No nystagmus is noted. ??There is no loss of sensation over the face. ??There is no facial weakness or asymmetry. ??Hearing intact bilaterally to finger rubbing. Uvula and palate elevate in the midline. Shoulder shrug is symmetric. ??Tongue protrudes in the midline. MOTOR: Generalized weakness. Moves all extremities. BL LE: hip flexors 3/5, knee extension and flexion 4/5, BL DF 3/5 Bulk and tone are nomal. ??No abnormal movements are noted. REFLEXES: 1+ and symmetric in bilateral upper extremities. SENSORY: Intact to light??touch in all four extremities.?No extinction with bilateral stimulation. COORDINATION: ??Normal GAIT AND STATION: Not tested, per therapy notes CARDIOVASCULAR: Regular rate and rhythm. ??No murmurs, rubs, gallops or carotid bruits. LUNGS: Clear to auscultation bilaterally. No wheezes, rhonchi or rales. ABDOMEN: ??Soft and non-tender.?Normal bowel sounds were noted. EXTREMITIES: ??No edema, back incision dehisced IMPRESSION: Rehab Diagnosis: Respiratory Failure Impairment Code Group: Debility Physician Problem List/ Comorbidities: Active Problems: Chronic atrial fibrillation ([facility]) Former smoker COPD (chronic obstructive pulmonary disease) ([facility]) Hypercapnic respiratory failure ([facility]) Diskitis Pneumonia Hyponatremia MEDICAL PLAN: 1. Debility: ??Complicated recent medical course. ??Comprehensive inpatient rehabilitation, family training, structured environment. 2. 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 ??F/u with surgery team. ??Complete course of bactrim. ??Chest tube out. Wound care following back incision. 3. Respiratory failure: ??S/p trach, decannulated. ??Aggressive pulm toilet. ??BDs/inhaled steroids. ??Dr Espino following. NIPPV as required. ??H/o COPD and prior tobacco abuse. 4. Dysphagia: ??S/p PEG. ??TOWING PILOT, RD f/u. ??Aspiration precautions 5. Dm2: ??A1c 4.7%: prudent diet, diabetic education. ??Metformin, SSI, accuchecks. ??RD eval. 6. CAD: ??ASA, statin, BBlocker 7. HTN: ??Metoprolol, bumex 8. Afib: ??Eliquis, amio, metoprolol 9. Urinary retention: ??Flomax, monitor UOP 10. Dyslipid; ??Statin 11. Anemia: ??ACD and ABLA. ??Monitor cbc, transfuse for hgb under 7 or if symptomatic. 12. Nutrition: rd consult. ?? * DVT prophylaxsis: eliquis * GI prophylaxsis: ppi CODE STATUS: Full Code ALLERGY: Allergies Allergen Reactions ??? Penicillins Current Facility-Administered Medications: ??? acetaminophen (TYLENOL) tablet 650 mg, 650 mg, oral, Q4H PRN, Rachna Burt MD, 650 mg at 11/02/17 1752 ??? albuterol (PROVENTIL,VENTOLIN) 2.5 mg/0.5 mL nebulizer solution 5 mg, 5 mg, nebulization, Q6H PRN, Rachna Burt MD ??? amiodarone (PACERONE) tablet 200 mg, 200 mg, oral, BID, Rachna Burt MD, 200 mg at ??? apixaban (ELIQUIS) tablet 5 mg, 5 mg, oral, BID, Rachna Burt MD, 5 mg at 11/05/17927 ??? ascorbic acid (VITAMIN C) tablet/chewable tablet 500 mg, 500 mg, oral, BID, Rachna Burt MD, 500 mg at 11/05/17927 ??? aspirin enteric coated tablet 81 mg, 81 mg, oral, Daily, Rachna Burt MD, 81 mg at ??? atorvastatin (LIPITOR) tablet 20 mg, 20 mg, oral, Daily, Rachna Burt MD, 20 mg at [id number] ??? bacitracin 500 unit/gram ointment packet 1 application, 1 application, topical, Daily, Nas De Oliveira DPM, 1 application at 11/05/17 1601 ??? baclofen (LIORESAL) tablet 5 mg, 5 mg, oral, TID with meals, Jason Shore Jr., NP, 5 mg at 11/05/17 1137 ??? bisacodyl (DULCOLAX) suppository 10 mg, 10 mg, rectal, Daily PRN, Jason Shore Jr., NP, 10 mg at 10/29/17 2139 ??? bisacodyl EC (DULCOLAX EC) tablet 5 mg, 5 mg, oral, BID PRN, Jason Shore Jr., NP, 5 mg at 11/05/17 1257 ??? budesonide-formoterol (SYMBICORT) 80-4.5 mcg/actuation inhaler 1 puff, 1 puff, inhalation, BID (RT), Rachna Burt MD, 1 puff at 11/05/17 0801 ??? bumetanide (BUMEX) tablet 0.5 mg, 0.5 mg, oral, Daily, Александр Espino Jr., MD, 0.5 mg at 11/05/17926 ??? chlorhexidine (PERIDEX) 0.12 % solution 5 mL, 5 mL, mouth/throat, BID, Rachna Burt MD, 5 mL at 11/05/17 0936 ??? collagenase 250 unit/gram ointment, , topical, Daily, Rachna Burt MD ??? dextrose (GLUTOSE) 40 % gel 15 g, 15 g, oral, Q15 Min PRN, Jason Shore Jr., OWNER/PHOTOGRAPHER ??? dextrose 50% (concentrated solution) CONCENTRATED solution 25 g, 25 g, intravenous, Q15 Min PRN, Jason Shore Jr., OWNER/PHOTOGRAPHER ??? diphenhydrAMINE (BENADRYL) tab/cap 25 mg, 25 mg, oral, QID PRN, Александр Espino Jr., MD, 25 mgat 11/05/17926 ??? docusate sodium (COLACE) capsule 100 mg, 100 mg, oral, BID, Jason Shore Jr., BELLA, 100 mg at 11/05/17926 ??? ergocalciferol (VITAMIN D) capsule 50,000 Units, 50,000 Units, oral, Weekly, Adam Pastor MD, 50,000 Units at 11/02/17 0719 ??? glucagon injection 1 mg, 1 mg, intramuscular, Q30 Min PRN, Jason Shore Jr., OWNER/PHOTOGRAPHER ??? ipratropium-albuterol (DUO-NEB) 0.5-2.5 mg/3 mL nebulizer solution 3 mL, 3 mL, nebulization, Q4H PRN (RT), Rachna Burt MD ??? lidocaine (LIDODERM) 5 % patch 1 patch, 1 patch, transdermal, Daily, Jason Shore Jr., BELLA, 1patch at 11/05/17 09 ??? metoprolol (LOPRESSOR) tablet 12.5 mg, 12.5 mg, oral, BID, Rachna Burt MD, 12.5 mg at 11/05/17926 ??? miconazole 2 % powder, , topical, BID, Rachna Burt MD ??? ondansetron (ZOFRAN) tablet 4 mg, 4 mg, oral, Q4H PRN, Rachna Burt MD, 4 mg at 11/03/17 1010 ??? oxyCODONE (ROXICODONE) tablet 10 mg, 10 mg, oral, Q4H PRN, Rachna Burt MD, 10 mg at 11/05/17 1137 ??? oxyCODONE (ROXICODONE) tablet 5 mg, 5 mg, oral, Q4H PRN, Rachna Burt MD, 5 mg at 11/01/17 1313 ??? pantoprazole DR (PROTONIX) extended release tablet 40 mg, 40 mg, oral, Daily, Rachna Burt MD, 40 mg at 11/05/17926 ??? polyethylene glycol (MIRALAX) packet 17 g, 17 g, oral, BID PRN, Jason Shore Jr., OWNER/PHOTOGRAPHER, 17 g at 11/03/17 0805 ??? senna (SENOKOT) tablet 1 tablet, 1 tablet, oral, Daily, Rachna Burt MD, 1 tablet at 11/05/17926 ??? tamsulosin (FLOMAX) extended release capsule 0.4 mg, 0.4 mg, oral, Nightly, Rachna Burt MD, 0.4 mg at 11/04/172232 ??? zinc sulfate (ZINCATE) capsule 220 mg, 220 mg, oral, Daily, Rachna Burt MD, 220 mg at 11/05/17927 ??? zolpidem (AMBIEN) tablet 5 mg, 5 mg, oral, Nightly PRN, Rachna Burt MD, 5 mg at 11/03/172129 Current functional status: PT Functional Mobility: AM: supine-->sit EOB with max assist x1 and bedrail, bed-->WC with max assist x1 via slide board to left side (pt incurred small skin tear on right forearm during slide board transfer, RN notified, pt bandaged), WC-->mat with max assist x2 via slide board to right side (another small skin tear on dorsal left hand, RN notified and pt bandaged), reports back muscle s pasms in sitting on edge of mat requesting to lay down, sit-->supine with mod assist x1, supine-->sit with max assist x1, sit<-->stand x2 reps in the white stand aide device with max assist x2 (pt fatigued, couldn't tolerate), transfers mat-->WC with total assist via stand aide device and 2-person assist. PM: WC-->mat with max assit x2 via white stand aide, sit<-->stand training from edge of mat (via white stand aide for increased support) with max assist x2 - x6 reps until pt fatigued, transfers WC-->bed with max assist x2 via white stand aide, sit-->supine withmod assist, rolls SARAH with mod assist and SARAH bedrails, brief/pants changed in bed, etc. Both AM and PM PT sessions have been significantly limited due to pt's increasing low back pain and muscle spasms which radiate down SARAH legs as well, despite having pain meds and muscle relaxer prior to PT sessions. Pt is also very fatigued and demonstrates poor endurance with attempts at repetitive sit<-->stand training w/ the white stand aide device for SARAH LE support. Despite elevated mat height and use of stand aide, pt very debilitated and fatigues fast with standing, needing max assist x2 forinitial standing and for upright posture as pt tends to lay forward on the stand aide bars, unable to erect himself while standing. Pt was less able to assist with slide board transfers, needing 2-person assist for that as well. Pt is very motivated and cooperative and appreciative with PT, but cannot tolerate much activity w/o several rest breaks or lying down to calm back spasms. Pt to benefit from continued PT services to address deficits and maximize functional abilities. Continue per plan of care. OT Functional Mobility: Pt. completes supine to sit max assist and 2 person DEP for sit to stand with manual stand aid. Pt able to assist slightly more when pulling self up in manual sit to stand this date OT Self Care: DEP to minimal assist for self care with 1 to 2 people. Pt using rolling shower chairwith sarah supports and manual stand aid 2 person with LE dressing. Pt demonstrates general decreasedbalance, endurance, strength and sensation. Pt will benefit from continued skilled OT to promote IND toward goals. Pt. vomiting this AM and RN notified. OT Cognition: Appears WNL OT Communication: decreased vocal strength at times. TOWING PILOT Cognition: WFL TOWING PILOT Communication: WFL TOWING PILOT Swallowing: WFL: Regular consistency with thin liquids, tolerating diet well Patient/caregiver goals:Patient and Family Goals: to return home Pre hospital Living environment: Home Setting: Split level home Prehospital Lives With: Spouse;Adult children REVIEW OF DATA: Recent Results (from the past 24 hour(s)) MRSA PCR Collection Time: 11/05/17 11:45 AM Result Value Ref Range PCR Scrn, Methicillin resistant Staphylococcus aureus (MRSA) Negative Negative REVIEW OF IMAGING: Imaging (Last 96 hours) 10/22 1037 XR Chest 1 Vw REHABILITATION DIAGNOSIS: Impairment Code Group: Debility REHAB PLAN OF CARE: The Interdisciplinary Team will work collaboratively to address the patient problems and goals to be managed by the Individualized Interdisciplinary Plan of Care. Rehabilitation Precautions/Restrictions: Falls;MRSA colonization;Isolation Multi-Disciplinary Problems Active Problems Problem: Health Behavior: Start Date: 10/24/17 Goal Start Date End Date Understanding of discharge needs will improve 10/24/17 -- Goal Intervention Frequency Start Date End Date Discuss information regarding discharge instructions -- 10/24/17 -- Goal Intervention Frequency Start Date End Date Identify discharge learning needs (meds, wound care, etc) -- 10/24/17 -- Goal Intervention Frequency Start Date End Date Collaborate with case management -- 10/24/17 -- Intervention Details: (Coordinate discharge planning if the patient needs post- hospital services onphysician order or complex needs related to functional status, cognitive ability, or social supportsystem) Goal Intervention Frequency Start Date End Date Arrange for needed discharge resources and transportation as appropriate -- 10/24/17 -- Goal Intervention Frequency Start Date End Date Identify discharge barriers -- 10/24/17 -- Goal Intervention Frequency Start Date End Date Collaborate with spanish interpreter -- 10/24/17 -- Problem: Lack of Knowledge: Start Date: 10/25/17 Goal Start Date End Date Ability to state ways to decrease the risk of falls will improve 10/25/17 -- Goal Intervention Frequency Start Date End Date Teach fall prevention measures -- 10/25/17 -- Goal Intervention Frequency Start Date End Date Teach information regarding appropriate environmental changes -- 10/25/17 -- Problem: Safety: Start Date: 10/25/17 Goal Start Date End Date Will remain free from falls 10/25/17 -- Goal Intervention Frequency Start Date End Date Assess risk factors for falls -- 10/25/17 -- Intervention Details: (including medications) Goal Intervention Frequency Start Date End Date Implement fall prevention measures -- 10/25/17 -- Goal Intervention Frequency Start Date End Date Collaborate with other disciplines -- 10/25/17 -- Intervention Details: (PT, OT, Pharmacy, MD, etc.) Goal Start Date End Date Will remain free from injury from falls 10/25/17 -- Goal Intervention Frequency Start Date End Date Provide safe environment for conduction of activities of daily living -- 10/25/17 -- Goal Start Date End Date Will remain free from falls and injury in home environment 10/25/17 -- Goal Intervention Frequency Start Date End Date Assess environmental risk factors -- 10/25/17 -- Problem: Activity: Start Date: 10/25/17 Goal Start Date End Date Mobility will improve 10/25/17 -- Goal Intervention Frequency Start Date End Date Encourage mobilization to extent of ability -- 10/25/17 -- Goal Intervention Frequency Start Date End Date Perform repositioning -- 10/25/17 -- Goal Intervention Frequency Start Date End Date Collaborate with physical therapy -- 10/25/17 -- Problem: Lack of Knowledge: Start Date: 10/25/17 Goal Start Date End Date Understanding of ways to prevent future skin breakdown will improve 10/25/17 -- Goal Intervention Frequency Start Date End Date Discuss precautions to protect skin integrity -- 10/25/17 -- Goal Intervention Frequency Start Date End Date Discuss treatment plan for related conditions -- 10/25/17 -- Goal Start Date End Date Ability to identify appropriate dietary choices will improve 10/25/17 -- Goal Intervention Frequency Start Date End Date Discuss dietary adjustments -- 10/25/17 -- Problem: Nutritional: Start Date: 10/25/17 Goal Start Date End Date Dietary intake will improve 10/25/17 -- Goal Intervention Frequency Start Date End Date Assess nutritional status -- 10/25/17 -- Goal Intervention Frequency Start Date End Date Collaborate with dietitian -- 10/25/17 -- Goal Intervention Frequency Start Date End Date Assist appropriate dietary choices -- 10/25/17 -- Goal Start Date End Date Ability to maintain a balanced intake and output will improve 10/25/17 -- Goal Intervention Frequency Start Date End Date Assess intake and output -- 10/25/17 -- Problem: Skin Integrity: Start Date: 10/25/17 Goal Start Date End Date Risk for impaired skin integrity will decrease 10/25/17 -- Goal Intervention Frequency Start Date End Date Identify risk factors for impaired skin integrity and/or pressure injuries -- 10/25/17 -- Goal Intervention Frequency Start Date End Date Monitor medication effects -- 10/25/17 -- Goal Intervention Frequency Start Date End Date Implement precautions to protect skin integrity -- 10/25/17 -- Goal Intervention Frequency Start Date End Date Use moisturizing agent to dry skin -- 10/25/17 -- Goal Intervention Frequency Start Date End Date Perform cleansing of skin when soiled -- 10/25/17 -- Goal Intervention Frequency Start Date End Date Provide pressure-relief bed or mattress -- 10/25/17 -- Goal Start Date End Date Ability to demonstrate warm and dry skin will improve 10/25/17 -- Goal Intervention Frequency Start Date End Date Monitor skin integrity, appearance and/or temperature -- 10/25/17 -- Goal Start Date End Date Circulation will improve to fullest extent possible 10/25/17 -- Goal Intervention Frequency Start Date End Date Assess circulation, sensation and/or motion of extremity -- 10/25/17 -- Problem: Bladder/Voiding Start Date: 10/25/17 Goal Start Date End Date LTG - Patient will achieve acceptable level of continence 10/25/17 -- Goal Start Date End Date STG - Patient demonstrates no accidents 10/25/17 -- Goal Intervention Frequency Start Date End Date Encourage toileting PRN 10/25/17 -- Goal Intervention Frequency Start Date End Date Educate patient about medications PRN 10/25/17 -- Problem: Bowel Elimination Start Date: 10/25/17 Goal Start Date End Date LTG - Patient will have regular and routine bowel evacuation 10/25/17 -- Goal Start Date End Date LTG - Patient will complete bowel elimination 10/25/17 -- Goal Start Date End Date STG - Patient maintains skin integrity 10/25/17 -- Goal Intervention Frequency Start Date End Date Educate patient about ostomy appliances, correct application, protection of skin PRN 10/25/17 -- Goal Start Date End Date STG - Patient will verbalize signs and symptoms of constipation and how to prevent/alleviate 10/25/17 -- Goal Intervention Frequency Start Date End Date Encourage use of aids (stool softener, laxative, suppository) PRN 10/25/17 -- Goal Intervention Frequency Start Date End Date Encourage adjustment and monitoring of fluid intake PRN 10/25/17 -- Goal Intervention Frequency Start Date End Date Teach patient about symptoms of impaction PRN 10/25/17 -- Goal Intervention Frequency Start Date End Date Educate patient about effect of fluid intake on bowel movement PRN 10/25/17 -- Goal Intervention Frequency Start Date End Date Educate patient about adequate fluid intake PRN 10/25/17 -- Goal Start Date End Date STG - Patient will be continent of stool 10/25/17 -- Goal Start Date End Date STG - Patient verbalizes knowledge about relationship between diet, fluid intake, activity and medication on constipation 10/25/17 -- Goal Intervention Frequency Start Date End Date Educate patient about medications PRN 10/25/17 -- Goal Intervention Frequency Start Date End Date Educate patient about adequate fluid intake PRN 10/25/17 -- Problem: Breathing Start Date: 10/25/17 Goal Start Date End Date STG - Respiratory rate and effort will be within normal limits for the patient 10/25/17 -- Goal Intervention Frequency Start Date End Date Provide oxygen therapy as ordered PRN 10/25/17 -- Goal Intervention Frequency Start Date End Date Monitor oygen saturation PRN 10/25/17 -- Goal Intervention Frequency Start Date End Date Encourage incentive spirometer x 10 each hour while awake PRN 10/25/17 -- Goal Intervention Frequency Start Date End Date Encourage/perform oral hygiene as appropriate PRN 10/25/17 -- Goal Intervention Frequency Start Date End Date Collaborate with respiratory therapy to administer medications/treatments PRN 10/25/17 -- Goal Start Date End Date STG - Patient/family will be able to verbalize oxygen safety precautions 10/25/17 -- Goal Intervention Frequency Start Date End Date Educate patient about oxygen PRN 10/25/17 -- Goal Start Date End Date STG - Patient will utilize incentive spirometer 10/25/17 -- Goal Intervention Frequency Start Date End Date Encourage incentive spirometer x 10 each hour while awake PRN 10/25/17 -- Goal Intervention Frequency Start Date End Date Encourage use of incentive spirometer PRN 10/25/17 -- Goal Start Date End Date STG - Patient performs or directs assisted coughing 10/25/17 -- Goal Intervention Frequency Start Date End Date Instruct on coughing and deep breathing PRN 10/25/17 -- Goal Intervention Frequency Start Date End Date Educate patient about forced cough PRN 10/25/17 -- Goal Intervention Frequency Start Date End Date Teach patient about assistive cough PRN 10/25/17 -- Problem: Pain Start Date: 10/25/17 Goal Start Date End Date STG - Pain is manageable through therapies 10/25/17 -- Goal Start Date End Date STG - Patient will verbalize an acceptable level of pain 10/25/17 -- Problem: OT Misc Start Date: 10/25/17 Goal Start Date End Date G - Misc 1 10/25/17 -- Goal Details: Pt to dress modified IND Goal Start Date End Date G - Misc 2 10/25/17 -- Goal Details: Pt to groom modified IND Goal Start Date End Date [facility] 3 10/25/17 -- Goal Details: Pt to bathe with transfer modified IND Goal Start Date End Date [facility] [place] 4 10/25/17 -- Goal Details: Pt to toilet with transfer modified IND Goal Start Date End Date [facility] [place] 5 10/25/17 -- Goal Details: Pt to complete UE HEP with IND to promote IND with self care and functional transfers Problem: Cognitive: Start Date: 10/25/17 Goal Start Date End Date [facility] 1 10/25/17 -- Goal Details: Patient will execute multiple elements of a task with supervision Goal Start Date End Date [facility] 2 10/25/17 -- Goal Details: Patient will increase problem solving to complete tasks at 90% or with supervision Problem: Physical Regulation: Start Date: 10/25/17 Goal Start Date End Date [facility] 3 10/25/17 -- Goal Details: Patient will increase general strength/coordination through various exercises with supervision until disch Problem: Respiratory: Start Date: 10/25/17 Goal Start Date End Date [facility] 4 10/25/17 -- Goal Details: Patient will maintain/increase SPO2 by 1% in at least one session prior to disch Goal Start Date End Date [facility] 5 10/25/17 -- Goal Details: Patient will increase pulmonary function through various exercises with supervision until disch Problem: PT [facility] [place] Start Date: 10/25/17 Goal Start Date End Date [facility] [place] 1 10/25/17 -- Goal Details: Pt will roll SARAH and supine<-->sit EOB with supervision and bedrails as needed.Pt will sit<-->stand with minimum assist and appropriate assistive device. Pt will transfer bed<-->wheelchair/chair with minimum assist and appropriate assistive device. Goal Start Date End Date [facility] [place] 2 10/25/17 -- Goal Details: Pt will ambulate 150' w/ minimum assist and appropriate assistive device. Pt will ambulate up/down 4 stairs with mod assist and SARAH rails. Goal Start Date End Date [facility] [place] 3 10/25/17 -- Goal Details: Pt will propel WC 150' with supervision and extra time. Goal Start Date End Date [facility] [place] 4 10/25/17 -- Goal Details: Pt will complete SARAH LE HEP x15 reps with supervision. Goal Start Date End Date G - [facility] [place] 5 10/25/17 -- Goal Details: Pt and/or family will verbalize and demonstrate understanding of pt's safety and mobility needs upon discharge. * Nas De Oliveira, DPM - 11/05/2017 2:55 PM CDT Podiatry Progress Note Subjective Interval History: Patient seen for follow-up s/p nail debridement, some pain right third toe. Bandaging intact. Objective Physical Exam: Vitals: 11/05/17926 BP: 104/66 Pulse: 88 Resp: Temp: SpO2: 95% Current Facility-Administered Medications: ??? acetaminophen (TYLENOL) tablet 650 mg, 650 mg, oral, Q4H PRN, Rachna Burt MD, 650 mg at 11/02/17 1752 ??? albuterol (PROVENTIL,VENTOLIN) 2.5 mg/0.5 mL nebulizer solution 5 mg, 5 mg, nebulization, Q6H PRN, Rachna Burt MD ??? amiodarone (PACERONE) tablet 200 mg, 200 mg, oral, BID, Rachna Burt MD, 200 mg at ??? apixaban (ELIQUIS) tablet 5 mg, 5 mg, oral, BID, Rachna Burt MD, 5 mg at 11/05/17927 ??? ascorbic acid (VITAMIN C) tablet/chewable tablet 500 mg, 500 mg, oral, BID, Rachna Burt MD, 500 mg at 11/05/17927 ??? aspirin enteric coated tablet 81 mg, 81 mg, oral, Daily, Rachna Burt MD, 81 mg at ??? atorvastatin (LIPITOR) tablet 20 mg, 20 mg, oral, Daily, Rachna Burt MD, 20 mg at ??? baclofen (LIORESAL) tablet 5 mg, 5 mg, oral, TID with meals, Jason Shore Jr., OWNER/PHOTOGRAPHER, 5 mg at 11/05/17 1137 ??? bisacodyl (DULCOLAX) suppository 10 mg, 10 mg, rectal, Daily PRN, Jason Shore Jr., NP, 10 mg at 10/29/172138 ??? bisacodyl EC (DULCOLAX EC) tablet 5 mg, 5 mg, oral, BID PRN, Jason Shore Jr., BELLA, 5 mg at 11/05/17 1257 ??? budesonide-formoterol (SYMBICORT) 80-4.5 mcg/actuation inhaler 1 puff, 1 puff, inhalation, BID (RT), Rachna Burt MD, 1 puff at 11/05/17 0801 ??? bumetanide (BUMEX) tablet 0.5 mg, 0.5 mg, oral, Daily, Александр Espino Jr., MD, 0.5 mg at 11/05/17926 ??? chlorhexidine (PERIDEX) 0.12 % solution 5 mL, 5 mL, mouth/throat, BID, Rachna Burt MD, 5 mL at 11/05/17 0936 ??? collagenase 250 unit/gram ointment, , topical, Daily, Rachna Burt MD ??? dextrose (GLUTOSE) 40 % gel 15 g, 15 g, oral, Q15 Min PRN, Jason Shore Jr., BELLA ??? dextrose 50% (concentrated solution) CONCENTRATED solution 25 g, 25 g, intravenous, Q15 Min PRN, Jason Shore Jr., BELLA ??? diphenhydrAMINE (BENADRYL) tab/cap 25 mg, 25 mg, oral, QID PRN, Александр Espino Jr., MD, 25 mgat 11/05/17926 ??? docusate sodium (COLACE) capsule 100 mg, 100 mg, oral, BID, Jason Shore Jr., NP, 100 mg at 11/05/17926 ??? ergocalciferol (VITAMIN D) capsule 50,000 Units, 50,000 Units, oral, Weekly, Adam Pastor MD, 50,000 Units at 11/02/17 0719 ??? glucagon injection 1 mg, 1 mg, intramuscular, Q30 Min PRN, Jason Shore Jr., NP ??? ipratropium-albuterol (DUO-NEB) 0.5-2.5 mg/3 mL nebulizer solution 3 mL, 3 mL, nebulization, Q4H PRN (RT), Rachna Burt MD ??? lidocaine (LIDODERM) 5 % patch 1 patch, 1 patch, transdermal, Daily, Jason Shore Jr., OWNER/PHOTOGRAPHER, 1patch at 11/05/17 0938 ??? metoprolol (LOPRESSOR) tablet 12.5 mg, 12.5 mg, oral, BID, Rachna Burt MD, 12.5 mg at 11/05/17926 ??? miconazole 2 % powder, , topical, BID, Rachna Burt MD ??? ondansetron (ZOFRAN) tablet 4 mg, 4 mg, oral, Q4H PRN, Rachna Burt MD, 4 mg at 11/03/17 1010 ??? oxyCODONE (ROXICODONE) tablet 10 mg, 10 mg, oral, Q4H PRN, Rachna Burt MD, 10 mg at 11/05/17 1137 ??? oxyCODONE (ROXICODONE) tablet 5 mg, 5 mg, oral, Q4H PRN, Rachna Burt MD, 5 mg at 11/01/17 1313 ??? pantoprazole DR (PROTONIX) extended release tablet 40 mg, 40 mg, oral, Daily, Rachna Burt MD, 40 mg at 11/05/17926 ??? polyethylene glycol (MIRALAX) packet 17 g, 17 g, oral, BID PRN, Jason Shore Jr., OWNER/PHOTOGRAPHER, 17 g at 11/03/17 0805 ??? senna (SENOKOT) tablet 1 tablet, 1 tablet, oral, Daily, Rachna Burt MD, 1 tablet at 11/05/17926 ??? tamsulosin (FLOMAX) extended release capsule 0.4 mg, 0.4 mg, oral, Nightly, Rachna Burt MD, 0.4 mg at 11/04/17 2233 ??? zinc sulfate (ZINCATE) capsule 220 mg, 220 mg, oral, Daily, Rachna Burt MD, 220 mg at 11/05/17 0928 ??? zolpidem (AMBIEN) tablet 5 mg, 5 mg, oral, Nightly PRN, Rachna Burt MD, 5 mg at 11/03/17 2130 Lab/Radiology/Diagnostic Review: No recent results to review Vitals: Vitals: 11/05/17 0927 BP: 104/66 Pulse: 88 Resp: Temp: SpO2: 95% Bilateral third toes with bandages intact, no active bleeding or clinical signs of infection. ASSESSMENT: DM, wound bilateral third toes, left hallux PLAN: Removed dressings, start Bacitracin/bandaid to toe wounds once daily until fully healed. Nas De Oliveira DPM * Александр Espino Jr., MD - 11/05/2017 6:38 AM CDT Pulmonary / Critical Care Daily Progress Chief Complaint/HPI/Hospital Course: Good night. With physical therapy. Less edema on exam. Up in chair eating breakfast. Normal pCO2. Comfortable on room air. Continues to do well without BiPAP Review of Systems: Review of Systems Constitutional: Negative for chills, fatigue and fever. HENT: Negative for congestion, sore throat and trouble swallowing. Respiratory: Negative for cough, chest tightness, shortness of breath and wheezing. Cardiovascular: Negative for chest pain and leg swelling. Gastrointestinal: Negative for diarrhea, nausea and vomiting. Genitourinary: Negative for dysuria and hematuria. Neurological: Positive for weakness. Negative for dizziness and headaches. Psychiatric/Behavioral: Negative for behavioral problems and sleep disturbance. Temp: [36.3 ??C (97.4 ??F)-36.9 ??C (98.5 ??F)] 36.9 ??C (98.5 ??F) Pulse: [74-88] 86 Resp: [18] 18 BP: (92-157)/(49-65) 92/49 I/O last 2 completed shifts: In: - Out: 300 [Urine:300] I/O this shift: In: - Out: 700 [Urine:700] Oxygen / Pulmonary Events Vent settings for last 24 hours: Oxygen Therapy SpO2: 97 % Pulse Oximetry Type: Intermittent Patient Activity: At rest O2 Therapy: None (Room air) O2 Del Method: CPAP/Bi-PAP mask FiO2 (%): 35 % O2 Flow Rate (L/min): 2 L/min] Physical exam: Physical Exam Constitutional: He is oriented to person, place, and time. He appears well- developed. No distress. HENT: Head: Normocephalic. Mouth/Throat: Oropharynx is clear and moist. Eyes: Pupils are equal, round, and reactive to light. Right eye exhibits no discharge. Left eye exhibits no discharge. Cardiovascular: Regular rhythm and normal heart sounds. Tachycardia present. Pulmonary/Chest: Effort normal and breath sounds normal. He has no wheezes. He has no rales. Abdominal: There is no rebound and no guarding. Peg Musculoskeletal: He exhibits edema. Neurological: He is alert and oriented to person, place, and time. Psychiatric: He has a normal mood and affect. Current Facility-Administered Medications: ??? acetaminophen (TYLENOL) tablet 650 mg, 650 mg, oral, Q4H PRN, Rachna Burt MD, 650 mg at 11/02/171751 ??? albuterol (PROVENTIL,VENTOLIN) 2.5 mg/0.5 mL nebulizer solution 5 mg, 5 mg, nebulization, Q6H PRN, Rachna Burt MD ??? amiodarone (PACERONE) tablet 200 mg, 200 mg, oral, BID, Rachna Burt MD, 200 mg at ??? apixaban (ELIQUIS) tablet 5 mg, 5 mg, oral, BID, Rachna Burt MD, 5 mg at 11/04/172231 ??? ascorbic acid (VITAMIN C) tablet/chewable tablet 500 mg, 500 mg, oral, BID, Rachna Burt MD, 500 mg at 11/04/172231 ??? aspirin enteric coated tablet 81 mg, 81 mg, oral, Daily, Rachna Burt MD, 81 mg at ??? atorvastatin (LIPITOR) tablet 20 mg, 20 mg, oral, Daily, Rachna Burt MD, 20 mg at ??? baclofen (LIORESAL) tablet 5 mg, 5 mg, oral, TID with meals, Jason Shore Jr., NP, 5 mg at 11/04/17 1744 ??? bisacodyl (DULCOLAX) suppository 10 mg, 10 mg, rectal, Daily PRN, Jason Shore Jr., NP, 10 mg at 10/29/172138 ??? bisacodyl EC (DULCOLAX EC) tablet 5 mg, 5 mg, oral, BID PRN, Jason Shore Jr., NP, 5 mg at 10/29/17 1329 ??? budesonide-formoterol (SYMBICORT) 80-4.5 mcg/actuation inhaler 1 puff, 1 puff, inhalation, BID (RT), Rachna Burt MD, 1 puff at 11/04/172054 ??? bumetanide (BUMEX) tablet 0.5 mg, 0.5 mg, oral, Daily, Александр Espino Jr., MD, 0.5 mg at 11/04/17 0837 ??? chlorhexidine (PERIDEX) 0.12 % solution 5 mL, 5 mL, mouth/throat, BID, Rachna Burt MD, 5 mL at 11/04/172233 ??? collagenase 250 unit/gram ointment, , topical, Daily, Rachna Burt MD ??? dextrose (GLUTOSE) 40 % gel 15 g, 15 g, oral, Q15 Min PRN, Jason Shore Jr., BELLA ??? dextrose 50% (concentrated solution) CONCENTRATED solution 25 g, 25 g, intravenous, Q15 Min PRN, Jason Shore Jr., NP ??? diphenhydrAMINE (BENADRYL) tab/cap 25 mg, 25 mg, oral, QID PRN, Александр Espino Jr., MD, 25 mgat 11/04/17 0848 ??? docusate sodium (COLACE) capsule 100 mg, 100 mg, oral, BID, Jason Shore Jr., NP, 100 mg at 11/04/17 2232 ??? ergocalciferol (VITAMIN D) capsule 50,000 Units, 50,000 Units, oral, Weekly, Adam Pastor MD, 50,000 Units at 11/02/17 0719 ??? glucagon injection 1 mg, 1 mg, intramuscular, Q30 Min PRN, Jason Shore Jr., OWNER/PHOTOGRAPHER ??? ipratropium-albuterol (DUO-NEB) 0.5-2.5 mg/3 mL nebulizer solution 3 mL, 3 mL, nebulization, Q4H PRN (RT), Rachna Burt MD ??? lidocaine (LIDODERM) 5 % patch 1 patch, 1 patch, transdermal, Daily, Jason Shore Jr., OWNER/PHOTOGRAPHER, Stopped at 11/04/172233 ??? metoprolol (LOPRESSOR) tablet 12.5 mg, 12.5 mg, oral, BID, Rachna Burt MD, 12.5 mg at 11/04/172233 ??? miconazole 2 % powder, , topical, BID, Rachna Burt MD ??? ondansetron (ZOFRAN) tablet 4 mg, 4 mg, oral, Q4H PRN, Rachna Burt MD, 4 mg at 11/03/17 1010 ??? oxyCODONE (ROXICODONE) tablet 10 mg, 10 mg, oral, Q4H PRN, Rachna Burt MD, 10 mg at 11/05/17 0212 ??? oxyCODONE (ROXICODONE) tablet 5 mg, 5 mg, oral, Q4H PRN, Rachna Burt MD, 5 mg at 11/01/17 1313 ??? pantoprazole DR (PROTONIX) extended release tablet 40 mg, 40 mg, oral, Daily, Rachna Burt MD, 40 mg at 11/04/17 0836 ??? polyethylene glycol (MIRALAX) packet 17 g, 17 g, oral, BID PRN, Jason Shore Jr., OWNER/PHOTOGRAPHER, 17 g at 11/03/17 0805 ??? senna (SENOKOT) tablet 1 tablet, 1 tablet, oral, Daily, Rachna Burt MD, 1 tablet at 11/04/17 0836 ??? tamsulosin (FLOMAX) extended release capsule 0.4 mg, 0.4 mg, oral, Nightly, Rachna Burt MD, 0.4 mg at 11/04/172232 ??? zinc sulfate (ZINCATE) capsule 220 mg, 220 mg, oral, Daily, Rachna Burt MD, 220 mg at 11/04/17 0837 ??? zolpidem (AMBIEN) tablet 5 mg, 5 mg, oral, Nightly PRN, Rcahna Burt MD, 5 mg at 11/03/17 2130 Labs: Labs reviewed: Resolved hyponatremia, hypercarbia. Room air saturation 97% Recent Results (from the past 24 hour(s)) MRSA PCR Collection Time: 11/04/17 9:41 AM Result Value Ref Range PCR Scrn, Methicillin resistant Staphylococcus aureus (MRSA) Negative Negative Imaging: Chest x-ray October 30 improved Diagnostics: Ejection fraction 65%. No vegetations. Mild left atrial enlargement Microbiology: Positive sputum culture for stenotrophomonas on October 13 Assessment & Plan: Assessment/Plan Hyponatremia Assessment & Plan Hyponatremia, resolved. Suspect dilutional. Monitor renal function with diuresis. Less edema on exam Pneumonia Assessment & Plan Completed treatment for pneumonia, empyema prior to transfer to [facility]. Finished Bactrim for stenotrophomonas pneumonia here. Two-view chest x-ray much better. Continue to observe off antibiotics. Diskitis Assessment & Plan Completed debridement, prolonged antibiotic therapy for an L1 diskitis. Continue physical therapy, pain control Hypercapnic respiratory failure ([facility]) Assessment & Plan Successfully decannulated. Comfortable on room air. Doing well without BiPAP COPD (chronic obstructive pulmonary disease) ([facility]) Assessment & Plan Pulmonary function testing when stable. Continue inhaled bronchodilator therapy. Lungs are clear Former smoker Assessment & Plan May meet criteria for lung cancer screen Chronic atrial fibrillation ([facility]) Assessment & Plan Hemodynamically stable. Monitor for bleeding. Continue amiodarone, aspirin, Lipitor, metoprolol, apixaban For today: Off Bactrim for stenotrophomonas pneumonia. Diuretic dose adjusted. Hyponatremia is stable. I suspect dilutional based on physical exam, increased total body water. He is not on a thiazide, SSRI etc. Less edema on exam. Blood gas noted. Normal pCO2. Discontinue BiPAP Prophylaxis: DVT ppx: Long-term oral anticoagulation At Code Status: Full Code. Александр Espino Jr., MD 11/05/2017 6:41 AM This note was transcribed using Speech Recognition software. As a result, there may be grammatical and spelling errors that are unintended. Every attempt is made to have correct dictation. If there are any questions or major errors, please contact me * Rachna Burt MD - 11/04/2017 11:09 AM CDT [facility] Medicine Progress Note NAME: José Miguel Jang AGE: 66 y.o. : 1950 Date of Note: 11/04/2017 REHABILITATION PROGRESS NOTE Physician Physical Assessment/ Progress Note Rehab Impairment Code: Impairment Code Group: Debility Date of onset: Date of Onset: 07/29/17 Date of admission: 10/24/2017 Subjective: Slept well. Laying in bed this morning. Making slow steady progress. Back pain a little better withlido patch and adding K-pad. Complaints of intermittent nausea. Zofran helping. + BM. Tolerating BiPAP. Pulmonology following. PEG in place. Consider removal. Eating well. Still endurance significantly compromised. Max assist with slide board transfer. Generalized weakness. Back incision c/d/i. Wound care following. Santyl to an area of partial dehiscence. No erythema. Encouraged po intake. Continent of bowel and bladder. Edema improved. Bumex as tolerated. On eliquis. Anemia, monitor. Glucose overall controlled. Podiatry consulted for diabetic foot care. No fever chills, chest pain , or acute sob. Family supportive. PHYSICAL EXAMINATION: Vitals: 11/03/17 2130 11/03/17 2147 11/04/17 0415 11/04/17 0814 BP: 104/53 BP Location: Right arm Patient Position: Lying Pulse: 74 89 Resp: 18 Temp: 36.7 ??C (98 ??F) TempSrc: Oral SpO2: 98% 92% 91% Weight: Height: Physical exam:?? GENERAL: Pleasant and in no acute distress MENTAL STATUS: ??Awake, alert and oriented to person, place and time with normal attention span, insight, and concentration. ??Naming and repetition are normal. ??Remote and recent memory intact. ??Fund of knowledge is appropriate. SPEECH: ??Fluent, non-dysarthric, no aphasia noted CRANIAL NERVES: Visual herrera are full on confrontation. ??Pupils are equally round and reactive tolight??bilaterally. Extraocular movements are??full and intact. No nystagmus is noted. ??There is no loss of sensation over the face. ??There is no facial weakness or asymmetry. ??Hearing intact bilaterally to finger rubbing. Uvula and palate elevate in the midline. Shoulder shrug is symmetric. ??Tongue protrudes in the midline. MOTOR: Generalized weakness. Moves all extremities. BL LE: hip flexors 3/5, knee extension and flexion 4/5, BL DF 3/5 Bulk and tone are nomal. ??No abnormal movements are noted. REFLEXES: 1+ and symmetric in bilateral upper extremities. SENSORY: Intact to light??touch in all four extremities.?No extinction with bilateral stimulation. COORDINATION: ??Normal GAIT AND STATION: Not tested, per therapy notes CARDIOVASCULAR: Regular rate and rhythm. ??No murmurs, rubs, gallops or carotid bruits. LUNGS: Clear to auscultation bilaterally. No wheezes, rhonchi or rales. ABDOMEN: ??Soft and non-tender.?Normal bowel sounds were noted. EXTREMITIES: ??No edema, back incision dehisced IMPRESSION: Rehab Diagnosis: Respiratory Failure Impairment Code Group: Debility Physician Problem List/ Comorbidities: Active Problems: Chronic atrial fibrillation ([facility]) Former smoker COPD (chronic obstructive pulmonary disease) ([facility]) Hypercapnic respiratory failure ([facility]) Diskitis Pneumonia Hyponatremia MEDICAL PLAN: 1. Debility: ??Complicated recent medical course. ??Comprehensive inpatient rehabilitation, family training, structured environment. 2. 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 ??F/u with surgery team. ??Complete course of bactrim. ??Chest tube out. Wound care following back incision. 3. Respiratory failure: ??S/p trach, decannulated. ??Aggressive pulm toilet. ??BDs/inhaled steroids. ??Dr Espino following. NIPPV as required. ??H/o COPD and prior tobacco abuse. 4. Dysphagia: ??S/p PEG. ??TOWING PILOT, RD f/u. ??Aspiration precautions 5. Dm2: ??A1c 4.7%: prudent diet, diabetic education. ??Metformin, SSI, accuchecks. ??RD eval. 6. CAD: ??ASA, statin, BBlocker 7. HTN: ??Metoprolol, bumex 8. Afib: ??Eliquis, amio, metoprolol 9. Urinary retention: ??Flomax, monitor UOP 10. Dyslipid; ??Statin 11. Anemia: ??ACD and ABLA. ??Monitor cbc, transfuse for hgb under 7 or if symptomatic. 12. Nutrition: rd consult. ?? * DVT prophylaxsis: eliquis * GI prophylaxsis: ppi CODE STATUS: Full Code ALLERGY: Allergies Allergen Reactions ??? Penicillins Current Facility-Administered Medications: ??? acetaminophen (TYLENOL) tablet 650 mg, 650 mg, oral, Q4H PRN, Rachna Burt MD, 650 mg at 11/02/17 1752 ??? albuterol (PROVENTIL,VENTOLIN) 2.5 mg/0.5 mL nebulizer solution 5 mg, 5 mg, nebulization, Q6H PRN, Rachna Burt MD ??? amiodarone (PACERONE) tablet 200 mg, 200 mg, oral, BID, Rachna Burt MD, 200 mg at ??? apixaban (ELIQUIS) tablet 5 mg, 5 mg, oral, BID, Rachna Burt MD, 5 mg at 11/04/17 0836 ??? ascorbic acid (VITAMIN C) tablet/chewable tablet 500 mg, 500 mg, oral, BID, Rachna Burt MD, 500 mg at 11/04/17836 ??? aspirin enteric coated tablet 81 mg, 81 mg, oral, Daily, Rachna Burt MD, 81 mg at ??? atorvastatin (LIPITOR) tablet 20 mg, 20 mg, oral, Daily, Rachna Burt MD, 20 mg at ??? baclofen (LIORESAL) tablet 5 mg, 5 mg, oral, TID with meals, Jason Shore Jr., OWNER/PHOTOGRAPHER, 5 mg at 11/04/17836 ??? bisacodyl (DULCOLAX) suppository 10 mg, 10 mg, rectal, Daily PRN, Jason Shore Jr., BELLA, 10 mg at 10/29/179 ??? bisacodyl EC (DULCOLAX EC) tablet 5 mg, 5 mg, oral, BID PRN, Jason Shore Jr., BELLA, 5 mg at 10/29/17 1329 ??? budesonide-formoterol (SYMBICORT) 80-4.5 mcg/actuation inhaler 1 puff, 1 puff, inhalation, BID (RT), Rachna Burt MD, 1 puff at 11/04/17 0814 ??? bumetanide (BUMEX) tablet 0.5 mg, 0.5 mg, oral, Daily, Александр Espino Jr., MD, 0.5 mg at 11/04/17 0837 ??? chlorhexidine (PERIDEX) 0.12 % solution 5 mL, 5 mL, mouth/throat, BID, Rachna Burt MD, 5 mL at 11/04/17 0839 ??? collagenase 250 unit/gram ointment, , topical, Daily, Rachna Burt MD ??? dextrose (GLUTOSE) 40 % gel 15 g, 15 g, oral, Q15 Min PRN, Jason Shore Jr., BELLA ??? dextrose 50% (concentrated solution) CONCENTRATED solution 25 g, 25 g, intravenous, Q15 Min PRN, Jason Shore Jr., OWNER/PHOTOGRAPHER ??? diphenhydrAMINE (BENADRYL) tab/cap 25 mg, 25 mg, oral, QID PRN, Александр Espino Jr., MD, 25 mgat 11/04/17 0848 ??? docusate sodium (COLACE) capsule 100 mg, 100 mg, oral, BID, Jason Shore Jr., NP, 100 mg at 11/04/17 0836 ??? ergocalciferol (VITAMIN D) capsule 50,000 Units, 50,000 Units, oral, Weekly, Adam Pastor MD, 50,000 Units at 11/02/17 0719 ??? glucagon injection 1 mg, 1 mg, intramuscular, Q30 Min PRN, Jason Shore Jr., OWNER/PHOTOGRAPHER ??? ipratropium-albuterol (DUO-NEB) 0.5-2.5 mg/3 mL nebulizer solution 3 mL, 3 mL, nebulization, Q4H PRN (RT), Rachna Burt MD ??? lidocaine (LIDODERM) 5 % patch 1 patch, 1 patch, transdermal, Daily, Jason Shore Jr., OWNER/PHOTOGRAPHER, 1patch at 11/04/17 0837 ??? metoprolol (LOPRESSOR) tablet 12.5 mg, 12.5 mg, oral, BID, Rachna Burt MD, 12.5 mg at 11/04/17 0836 ??? miconazole 2 % powder, , topical, BID, Rachna Burt MD ??? ondansetron (ZOFRAN) tablet 4 mg, 4 mg, oral, Q4H PRN, Rachna Burt MD, 4 mg at 11/03/17 1010 ??? oxyCODONE (ROXICODONE) tablet 10 mg, 10 mg, oral, Q4H PRN, Rachna Burt MD, 10 mg at 11/04/17 1047 ??? oxyCODONE (ROXICODONE) tablet 5 mg, 5 mg, oral, Q4H PRN, Rachna Burt MD, 5 mg at 11/01/17 1313 ??? pantoprazole DR (PROTONIX) extended release tablet 40 mg, 40 mg, oral, Daily, Rachna Burt MD, 40 mg at 11/04/17 0836 ??? polyethylene glycol (MIRALAX) packet 17 g, 17 g, oral, BID PRN, Jason Shore Jr., OWNER/PHOTOGRAPHER, 17 g at 11/03/17 0805 ??? senna (SENOKOT) tablet 1 tablet, 1 tablet, oral, Daily, Rachna Burt MD, 1 tablet at 11/04/17 0836 ??? tamsulosin (FLOMAX) extended release capsule 0.4 mg, 0.4 mg, oral, Nightly, Rachna Burt MD, 0.4 mg at 11/03/17 2130 ??? zinc sulfate (ZINCATE) capsule 220 mg, 220 mg, oral, Daily, Rachna Burt MD, 220 mg at 11/04/17 0837 ??? zolpidem (AMBIEN) tablet 5 mg, 5 mg, oral, Nightly PRN, Rachna Burt MD, 5 mg at 11/03/172129 Current functional status: PT Functional Mobility: Pt propels WC 80' + 150' w/ supervision and much extra time on the unit, transfers WC<-->mat with minimum to mod assist via slide board to right side both times, seated SARAH LE and SARAH UE + trunk rotation exercises performed during co-treatment with music therapist. PM:sit<-->stand x5 reps in // bars with max assist x2 and SARAH UE support needing significant seated rest breaks between attempts and pt fatiguing quickly - longest stand was approximately 50-55 seconds and PT blocked SARAH knees, WC-->bed transfer with total assist x2 via garrett lift, rolls SARAH w/ mod assist and bedrails, etc. Pt's slide board transfers in AM session have greatly improved, pt able to better assist with scooting and better manages scooting into position in the WC. Pt tolerated seated UE and LE exercises well with music therapy, and also worked on breathing techniques w/ music therapist during rest breaks to improve endurance and maintain O2 sats, which were WNL throughoutsession. Pt's WC mobility and sit<-->stand training remains unchanged from yesterday's session. Pt was very fatigued in PM during sit<-->stand and left side remain weak and erwin/gives o ut at times, needing knee to be blocked and max assist at posterior hips to promote hip and back extension to stand upright. Pt continues to require 2- person assist for safety with standing and transfers, and is progressing slowly towards goals. Pt's increased pain and muscle spasms in back and BILlegs are significant barriers to progress at this time. RN and MD aware. Continue per plan of care. OT Functional Mobility: Pt. completes supine to sit max assist and 2 person DEP for sit to stand with manual stand aid. Pt able to assist slightly more when pulling self up in manual sit to stand this date OT Self Care: DEP to minimal assist for self care with 1 to 2 people. Pt using rolling shower chairwith sarah supports and manual stand aid 2 person with LE dressing. Pt demonstrates general decreasedbalance, endurance, strength and sensation. Pt will benefit from continued skilled OT to promote IND toward goals. Pt. vomiting this AM and RN notified. OT Cognition: Appears WNL OT Communication: decreased vocal strength at times. TOWING PILOT Cognition: WFL TOWING PILOT Communication: WFL TOWING PILOT Swallowing: WFL: Regular consistency with thin liquids, tolerating diet well Patient/caregiver goals:Patient and Family Goals: to return home Pre hospital Living environment: Home Setting: [facility] level home Prehospital Lives With: Spouse;Adult children REVIEW OF DATA: Recent Results (from the past 24 hour(s)) MRSA PCR Collection Time: 11/04/17 9:41 AM Result Value Ref Range PCR Scrn, Methicillin resistant Staphylococcus aureus (MRSA) Negative Negative REVIEW OF IMAGING: Imaging (Last 96 hours) 10/22 1037 XR Chest 1 Vw REHABILITATION DIAGNOSIS: Impairment Code Group: Debility REHAB PLAN OF CARE: The Interdisciplinary Team will work collaboratively to address the patient problems and goals to be managed by the Individualized Interdisciplinary Plan of Care. Rehabilitation Precautions/Restrictions: Falls;MRSA colonization;Isolation Multi-Disciplinary Problems Active Problems Problem: Health Behavior: Start Date: 10/24/17 Goal Start Date End Date Understanding of discharge needs will improve 10/24/17 -- Goal Intervention Frequency Start Date End Date Discuss information regarding discharge instructions -- 10/24/17 -- Goal Intervention Frequency Start Date End Date Identify discharge learning needs (meds, wound care, etc) -- 10/24/17 -- Goal Intervention Frequency Start Date End Date Collaborate with case management -- 10/24/17 -- Intervention Details: (Coordinate discharge planning if the patient needs post- hospital services onphysician order or complex needs related to functional status, cognitive ability, or social supportsystem) Goal Intervention Frequency Start Date End Date Arrange for needed discharge resources and transportation as appropriate -- 10/24/17 -- Goal Intervention Frequency Start Date End Date Identify discharge barriers -- 10/24/17 -- Goal Intervention Frequency Start Date End Date Collaborate with spanish interpreter -- 10/24/17 -- Problem: Lack of Knowledge: Start Date: 10/25/17 Goal Start Date End Date Ability to state ways to decrease the risk of falls will improve 10/25/17 -- Goal Intervention Frequency Start Date End Date Teach fall prevention measures -- 10/25/17 -- Goal Intervention Frequency Start Date End Date Teach information regarding appropriate environmental changes -- 10/25/17 -- Problem: Safety: Start Date: 10/25/17 Goal Start Date End Date Will remain free from falls 10/25/17 -- Goal Intervention Frequency Start Date End Date Assess risk factors for falls -- 10/25/17 -- Intervention Details: (including medications) Goal Intervention Frequency Start Date End Date Implement fall prevention measures -- 10/25/17 -- Goal Intervention Frequency Start Date End Date Collaborate with other disciplines -- 10/25/17 -- Intervention Details: (PT, OT, Pharmacy, MD, etc.) Goal Start Date End Date Will remain free from injury from falls 10/25/17 -- Goal Intervention Frequency Start Date End Date Provide safe environment for conduction of activities of daily living -- 10/25/17 -- Goal Start Date End Date Will remain free from falls and injury in home environment 10/25/17 -- Goal Intervention Frequency Start Date End Date Assess environmental risk factors -- 10/25/17 -- Problem: Activity: Start Date: 10/25/17 Goal Start Date End Date Mobility will improve 10/25/17 -- Goal Intervention Frequency Start Date End Date Encourage mobilization to extent of ability -- 10/25/17 -- Goal Intervention Frequency Start Date End Date Perform repositioning -- 10/25/17 -- Goal Intervention Frequency Start Date End Date Collaborate with physical therapy -- 10/25/17 -- Problem: Lack of Knowledge: Start Date: 10/25/17 Goal Start Date End Date Understanding of ways to prevent future skin breakdown will improve 10/25/17 -- Goal Intervention Frequency Start Date End Date Discuss precautions to protect skin integrity -- 10/25/17 -- Goal Intervention Frequency Start Date End Date Discuss treatment plan for related conditions -- 10/25/17 -- Goal Start Date End Date Ability to identify appropriate dietary choices will improve 10/25/17 -- Goal Intervention Frequency Start Date End Date Discuss dietary adjustments -- 10/25/17 -- Problem: Nutritional: Start Date: 10/25/17 Goal Start Date End Date Dietary intake will improve 10/25/17 -- Goal Intervention Frequency Start Date End Date Assess nutritional status -- 10/25/17 -- Goal Intervention Frequency Start Date End Date Collaborate with dietitian -- 10/25/17 -- Goal Intervention Frequency Start Date End Date Assist appropriate dietary choices -- 10/25/17 -- Goal Start Date End Date Ability to maintain a balanced intake and output will improve 10/25/17 -- Goal Intervention Frequency Start Date End Date Assess intake and output -- 10/25/17 -- Problem: Skin Integrity: Start Date: 10/25/17 Goal Start Date End Date Risk for impaired skin integrity will decrease 10/25/17 -- Goal Intervention Frequency Start Date End Date Identify risk factors for impaired skin integrity and/or pressure injuries -- 10/25/17 -- Goal Intervention Frequency Start Date End Date Monitor medication effects -- 10/25/17 -- Goal Intervention Frequency Start Date End Date Implement precautions to protect skin integrity -- 10/25/17 -- Goal Intervention Frequency Start Date End Date Use moisturizing agent to dry skin -- 10/25/17 -- Goal Intervention Frequency Start Date End Date Perform cleansing of skin when soiled -- 10/25/17 -- Goal Intervention Frequency Start Date End Date Provide pressure-relief bed or mattress -- 10/25/17 -- Goal Start Date End Date Ability to demonstrate warm and dry skin will improve 10/25/17 -- Goal Intervention Frequency Start Date End Date Monitor skin integrity, appearance and/or temperature -- 10/25/17 -- Goal Start Date End Date Circulation will improve to fullest extent possible 10/25/17 -- Goal Intervention Frequency Start Date End Date Assess circulation, sensation and/or motion of extremity -- 10/25/17 -- Problem: Bladder/Voiding Start Date: 10/25/17 Goal Start Date End Date LTG - Patient will achieve acceptable level of continence 10/25/17 -- Goal Start Date End Date STG - Patient demonstrates no accidents 10/25/17 -- Goal Intervention Frequency Start Date End Date Encourage toileting PRN 10/25/17 -- Goal Intervention Frequency Start Date End Date Educate patient about medications PRN 10/25/17 -- Problem: Bowel Elimination Start Date: 10/25/17 Goal Start Date End Date LTG - Patient will have regular and routine bowel evacuation 10/25/17 -- Goal Start Date End Date LTG - Patient will complete bowel elimination 10/25/17 -- Goal Start Date End Date STG - Patient maintains skin integrity 10/25/17 -- Goal Intervention Frequency Start Date End Date Educate patient about ostomy appliances, correct application, protection of skin PRN 10/25/17 -- Goal Start Date End Date STG - Patient will verbalize signs and symptoms of constipation and how to prevent/alleviate 10/25/17 -- Goal Intervention Frequency Start Date End Date Encourage use of aids (stool softener, laxative, suppository) PRN 10/25/17 -- Goal Intervention Frequency Start Date End Date Encourage adjustment and monitoring of fluid intake PRN 10/25/17 -- Goal Intervention Frequency Start Date End Date Teach patient about symptoms of impaction PRN 10/25/17 -- Goal Intervention Frequency Start Date End Date Educate patient about effect of fluid intake on bowel movement PRN 10/25/17 -- Goal Intervention Frequency Start Date End Date Educate patient about adequate fluid intake PRN 10/25/17 -- Goal Start Date End Date STG - Patient will be continent of stool 10/25/17 -- Goal Start Date End Date STG - Patient verbalizes knowledge about relationship between diet, fluid intake, activity and medication on constipation 10/25/17 -- Goal Intervention Frequency Start Date End Date Educate patient about medications PRN 10/25/17 -- Goal Intervention Frequency Start Date End Date Educate patient about adequate fluid intake PRN 10/25/17 -- Problem: Breathing Start Date: 10/25/17 Goal Start Date End Date STG - Respiratory rate and effort will be within normal limits for the patient 10/25/17 -- Goal Intervention Frequency Start Date End Date Provide oxygen therapy as ordered PRN 10/25/17 -- Goal Intervention Frequency Start Date End Date Monitor oygen saturation PRN 10/25/17 -- Goal Intervention Frequency Start Date End Date Encourage incentive spirometer x 10 each hour while awake PRN 10/25/17 -- Goal Intervention Frequency Start Date End Date Encourage/perform oral hygiene as appropriate PRN 10/25/17 -- Goal Intervention Frequency Start Date End Date Collaborate with respiratory therapy to administer medications/treatments PRN 10/25/17 -- Goal Start Date End Date STG - Patient/family will be able to verbalize oxygen safety precautions 10/25/17 -- Goal Intervention Frequency Start Date End Date Educate patient about oxygen PRN 10/25/17 -- Goal Start Date End Date STG - Patient will utilize incentive spirometer 10/25/17 -- Goal Intervention Frequency Start Date End Date Encourage incentive spirometer x 10 each hour while awake PRN 10/25/17 -- Goal Intervention Frequency Start Date End Date Encourage use of incentive spirometer PRN 10/25/17 -- Goal Start Date End Date [facility] - Patient performs or directs assisted coughing 10/25/17 -- Goal Intervention Frequency Start Date End Date Instruct on coughing and deep breathing PRN 10/25/17 -- Goal Intervention Frequency Start Date End Date Educate patient about forced cough PRN 10/25/17 -- Goal Intervention Frequency Start Date End Date Teach patient about assistive cough PRN 10/25/17 -- Problem: Pain Start Date: 10/25/17 Goal Start Date End Date [facility] - Pain is manageable through therapies 10/25/17 -- Goal Start Date End Date [facility] - Patient will verbalize an acceptable level of pain 10/25/17 -- Problem: OT Misc Start Date: 10/25/17 Goal Start Date End Date [facility] [place] [facility] 10/25/17 -- Goal Details: Pt to dress modified IND Goal Start Date End Date [facility] [place] 2 10/25/17 -- Goal Details: Pt to groom modified IND Goal Start Date End Date [facility] [place] 3 10/25/17 -- Goal Details: Pt to bathe with transfer modified IND Goal Start Date End Date [facility] [place] 4 10/25/17 -- Goal Details: Pt to toilet with transfer modified IND Goal Start Date End Date [facility] [place] 5 10/25/17 -- Goal Details: Pt to complete UE HEP with IND to promote IND with self care and functional transfers Problem: Cognitive: Start Date: 10/25/17 Goal Start Date End Date [facility] 1 10/25/17 -- Goal Details: Patient will execute multiple elements of a task with supervision Goal Start Date End Date [facility] 2 10/25/17 -- Goal Details: Patient will increase problem solving to complete tasks at 90% or with supervision Problem: Physical Regulation: Start Date: 10/25/17 Goal Start Date End Date [facility] 3 10/25/17 -- Goal Details: Patient will increase general strength/coordination through various exercises with supervision until disch Problem: Respiratory: Start Date: 10/25/17 Goal Start Date End Date [facility] 4 10/25/17 -- Goal Details: Patient will maintain/increase SPO2 by 1% in at least one session prior to disch Goal Start Date End Date [facility] 5 10/25/17 -- Goal Details: Patient will increase pulmonary function through various exercises with supervision until disch Problem: PT [facility] [place] Start Date: 10/25/17 Goal Start Date End Date [facility] [place] 1 10/25/17 -- Goal Details: Pt will roll SARAH and supine<-->sit EOB with supervision and bedrails as needed.Pt will sit<-->stand with minimum assist and appropriate assistive device. Pt will transfer bed<-->wheelchair/chair with minimum assist and appropriate assistive device. Goal Start Date End Date [facility] [place] 2 10/25/17 -- Goal Details: Pt will ambulate 150' w/ minimum assist and appropriate assistive device. Pt will ambulate up/down 4 stairs with mod assist and SARAH rails. Goal Start Date End Date [facility] [place] 3 10/25/17 -- Goal Details: Pt will propel WC 150' with supervision and extra time. Goal Start Date End Date [facility] [place] 4 10/25/17 -- Goal Details: Pt will complete SARAH LE HEP x15 reps with supervision. Goal Start Date End Date [facility] [place] 5 10/25/17 -- Goal Details: Pt and/or family will verbalize and demonstrate understanding of pt's safety and mobility needs upon discharge. * Александр Espino Jr., MD - 11/04/2017 8:25 AM CDT Pulmonary / Critical Care Daily Progress Chief Complaint/HPI/Hospital Course: Good night. With physical therapy. Less edema on exam. Up in chair eating breakfast. Normal pCO2. Comfortable on room air. Did well without BiPAP last. Complains of itching Review of Systems: Review of Systems Constitutional: Negative for chills, fatigue and fever. HENT: Negative for congestion, sore throat and trouble swallowing. Respiratory: Negative for cough, chest tightness, shortness of breath and wheezing. Cardiovascular: Negative for chest pain and leg swelling. Gastrointestinal: Negative for diarrhea, nausea and vomiting. Genitourinary: Negative for dysuria and hematuria. Neurological: Positive for weakness. Negative for dizziness and headaches. Psychiatric/Behavioral: Negative for behavioral problems and sleep disturbance. Temp: [36.4 ??C (97.5 ??F)-36.7 ??C (98 ??F)] 36.7 ??C (98 ??F) Pulse: [74-106] 89 Resp: [18-20] 18 BP: (104-126)/(53-75) 104/53 I/O last 2 completed shifts: In: 780 [P.O.:780] Out: 300 [Urine:300] No intake/output data recorded. Oxygen / Pulmonary Events Vent settings for last 24 hours: Oxygen Therapy SpO2: 91 % Pulse Oximetry Type: Intermittent Patient Activity: At rest O2 Therapy: None (Room air) O2 Del Method: CPAP/Bi-PAP mask FiO2 (%): 35 % O2 Flow Rate (L/min): 2 L/min] Physical exam: Physical Exam Constitutional: He is oriented to person, place, and time. He appears well- developed. No distress. HENT: Head: Normocephalic. Mouth/Throat: Oropharynx is clear and moist. Eyes: Pupils are equal, round, and reactive to light. Right eye exhibits no discharge. Left eye exhibits no discharge. Cardiovascular: Regular rhythm and normal heart sounds. Tachycardia present. Pulmonary/Chest: Effort normal and breath sounds normal. He has no wheezes. He has no rales. Abdominal: There is no rebound and no guarding. Peg Musculoskeletal: He exhibits edema. Neurological: He is alert and oriented to person, place, and time. Psychiatric: He has a normal mood and affect. Current Facility-Administered Medications: ??? acetaminophen (TYLENOL) tablet 650 mg, 650 mg, oral, Q4H PRN, Rachna Burt MD, 650 mg at 11/02/17 1752 ??? albuterol (PROVENTIL,VENTOLIN) 2.5 mg/0.5 mL nebulizer solution 5 mg, 5 mg, nebulization, Q6H PRN, Rachna Burt MD ??? amiodarone (PACERONE) tablet 200 mg, 200 mg, oral, BID, Rachna Burt MD, 200 mg at 129 ??? apixaban (ELIQUIS) tablet 5 mg, 5 mg, oral, BID, Rachna Burt MD, 5 mg at 11/03/172129 ??? ascorbic acid (VITAMIN C) tablet/chewable tablet 500 mg, 500 mg, oral, BID, Rachna Burt MD, 500 mg at 11/03/172129 ??? aspirin enteric coated tablet 81 mg, 81 mg, oral, Daily, Rachna Burt MD, 81 mg at ??? atorvastatin (LIPITOR) tablet 20 mg, 20 mg, oral, Daily, Rachna Burt MD, 20 mg at ??? baclofen (LIORESAL) tablet 5 mg, 5 mg, oral, TID with meals, Jason Shore Jr., BELLA, 5 mg at 11/03/171818 ??? bisacodyl (DULCOLAX) suppository 10 mg, 10 mg, rectal, Daily PRN, Jason Shore Jr., OWNER/PHOTOGRAPHER, 10 mg at 10/29/172138 ??? bisacodyl EC (DULCOLAX EC) tablet 5 mg, 5 mg, oral, BID PRN, Jason Shore Jr. OWNER/PHOTOGRAPHER, 5 mg at 10/29/17 1329 ??? budesonide-formoterol (SYMBICORT) 80-4.5 mcg/actuation inhaler 1 puff, 1 puff, inhalation, BID (RT), Rachna Burt MD, 1 puff at 11/04/17 0814 ??? bumetanide (BUMEX) tablet 0.5 mg, 0.5 mg, oral, Daily, Александр Espino Jr., MD, 0.5 mg at 11/03/17 0801 ??? chlorhexidine (PERIDEX) 0.12 % solution 5 mL, 5 mL, mouth/throat, BID, Rachna Burt MD, 5 mL at 11/03/172130 ??? collagenase 250 unit/gram ointment, , topical, Daily, Rachna Burt MD ??? dextrose (GLUTOSE) 40 % gel 15 g, 15 g, oral, Q15 Min PRN, Jason Shore Jr., OWNER/PHOTOGRAPHER ??? dextrose 50% (concentrated solution) CONCENTRATED solution 25 g, 25 g, intravenous, Q15 Min PRN, Jason Shore Jr., OWNER/PHOTOGRAPHER ??? diphenhydrAMINE (BENADRYL) tab/cap 25 mg, 25 mg, oral, TID PRN, Rachna Burt MD, 25 mg at 11/03/172129 ??? docusate sodium (COLACE) capsule 100 mg, 100 mg, oral, BID, Jason Shore Jr., BELLA, 100 mg at 11/03/172129 ??? ergocalciferol (VITAMIN D) capsule 50,000 Units, 50,000 Units, oral, Weekly, Adam Pastor MD, 50,000 Units at 11/02/17 0719 ??? glucagon injection 1 mg, 1 mg, intramuscular, Q30 Min PRN, Jason Shore Jr., NP ??? ipratropium-albuterol (DUO-NEB) 0.5-2.5 mg/3 mL nebulizer solution 3 mL, 3 mL, nebulization, Q4H PRN (RT), Rachna Burt MD ??? lidocaine (LIDODERM) 5 % patch 1 patch, 1 patch, transdermal, Daily, Jason Shore Jr., NP, Stopped at 11/03/172130 ??? metoprolol (LOPRESSOR) tablet 12.5 mg, 12.5 mg, oral, BID, Rachna Burt MD, 12.5 mg at 11/03/172129 ??? miconazole 2 % powder, , topical, BID, Rachna Burt MD ??? ondansetron (ZOFRAN) tablet 4 mg, 4 mg, oral, Q4H PRN, Rachna Burt MD, 4 mg at 11/03/17 1010 ??? oxyCODONE (ROXICODONE) tablet 10 mg, 10 mg, oral, Q4H PRN, Rachna Burt MD, 10 mg at 11/03/17 1923 ??? oxyCODONE (ROXICODONE) tablet 5 mg, 5 mg, oral, Q4H PRN, Rachna Burt MD, 5 mg at 11/01/17 1313 ??? pantoprazole DR (PROTONIX) extended release tablet 40 mg, 40 mg, oral, Daily, Rachna Burt MD, 40 mg at 11/03/17 0800 ??? polyethylene glycol (MIRALAX) packet 17 g, 17 g, oral, BID PRN, Jason Shore Jr., OWNER/PHOTOGRAPHER, 17 g at 11/03/17 08 ??? senna (SENOKOT) tablet 1 tablet, 1 tablet, oral, Daily, Rachna Burt MD, 1 tablet at 11/03/17 08 ??? tamsulosin (FLOMAX) extended release capsule 0.4 mg, 0.4 mg, oral, Nightly, Rachna Burt MD, 0.4 mg at 11/03/172129 ??? zinc sulfate (ZINCATE) capsule 220 mg, 220 mg, oral, Daily, Rachna Burt MD, 220 mg at 11/03/17800 ??? zolpidem (AMBIEN) tablet 5 mg, 5 mg, oral, Nightly PRN, Rachna Burt MD, 5 mg at 11/03/172129 Labs: Labs reviewed: Resolved hyponatremia, hypercarbia No results found for this or any previous visit (from the past 24 hour(s)). Imaging: Chest x-ray October 30 improved Diagnostics: Ejection fraction 65%. No vegetations. Mild left atrial enlargement Microbiology: Positive sputum culture for stenotrophomonas on October 13 Assessment & Plan: Assessment/Plan Hyponatremia Assessment & Plan Hyponatremia, resolved. Suspect dilutional. Monitor renal function with diuresis. Less edema on exam Pneumonia Assessment & Plan Completed treatment for pneumonia, empyema prior to transfer to [facility]. Finished Bactrim for stenotrophomonas pneumonia here. Two-view chest x-ray much better Diskitis Assessment & Plan Completed debridement, prolonged antibiotic therapy for an L1 diskitis. Has had some back pain. Hypercapnic respiratory failure (CMS/HCC) Assessment & Plan Successfully decannulated. Comfortable on room air. Did well without BiPAP last night COPD (chronic obstructive pulmonary disease) (CMS/[facility]) Assessment & Plan Pulmonary function testing when stable. Continue inhaled bronchodilator therapy. Former smoker Assessment & Plan May meet criteria for lung cancer screen Chronic atrial fibrillation ([facility]) Assessment & Plan Hemodynamically stable. Monitor for bleeding. Continue amiodarone, aspirin, Lipitor, metoprolol, apixaban For today: Off Bactrim for stenotrophomonas pneumonia. Diuretic dose adjusted. Hyponatremia is stable. I suspect dilutional based on physical exam, increased total body water. He is not on a thiazide, SSRI etc. Less edema on exam. Blood gas noted. Normal pCO2. Discontinue BiPAP Prophylaxis: DVT ppx: Long-term oral anticoagulation At Code Status: Full Code. Александр Espino Jr., MD 11/04/2017 8:27 AM This note was transcribed using Speech Recognition software. As a result, there may be grammatical and spelling errors that are unintended. Every attempt is made to have correct dictation. If there are any questions or major errors, please contact me * Guadalupe Mejia CRTT - 11/04/2017 8:18 AM CDT RT Impression/Plan: Patient resting comfortably. Currently on room air. Cont home regimen. * Rachna Burt MD - 11/03/2017 11:35 AM CDT [facility] [place] Rehabilitation Medicine Progress Note NAME: José Miguel Jang AGE: 66 y.o. : 1950 Date of Note: 11/03/2017 REHABILITATION PROGRESS NOTE Physician Physical Assessment/ Progress Note Rehab Impairment Code: Impairment Code Group: Debility Date of onset: Date of Onset: 07/29/17 Date of admission: 10/24/2017 Subjective: Slept well. Seen with therapy this morning. Complaints of back pain. Has lido patch and adding K-pad. Complaints of intermittent nausea. Zofran helping. + BM. Tolerating BiPAP. Pulmonology following.PEG in place. Consider removal. Eating well. Still endurance significantly compromised. Max assist with slide board transfer. Generalized weakness. Back incision c/d/i. Wound care following. Santyl to an area of partial dehiscence. No erythema. Serous drainage. Encouraged po intake. Continue supplements. Continent of bowel and bladder. On eliquis. Anemia, monitor. Glucose overall controlled. No fever chills, chest pain , or acute sob. Family supportive. PHYSICAL EXAMINATION: Vitals: 11/03/17 0406 11/03/17 0709 11/03/17 0750 11/03/17 1010 BP: 107/69 98/53 126/73 BP Location: Right arm Left arm Patient Position: Lying Sitting Pulse: 82 64 Resp: 20 Temp: 36.6 ??C (97.8 ??F) TempSrc: Temporal SpO2: 100% 95% Weight: Height: Physical exam:?? GENERAL: Pleasant and in no acute distress MENTAL STATUS: ??Awake, alert and oriented to person, place and time with normal attention span, insight, and concentration. ??Naming and repetition are normal. ??Remote and recent memory intact. ??Fund of knowledge is appropriate. SPEECH: ??Fluent, non-dysarthric, no aphasia noted CRANIAL NERVES: Visual herrera are full on confrontation. ??Pupils are equally round and reactive tolight??bilaterally. Extraocular movements are??full and intact. No nystagmus is noted. ??There is no loss of sensation over the face. ??There is no facial weakness or asymmetry. ??Hearing intact bilaterally to finger rubbing. Uvula and palate elevate in the midline. Shoulder shrug is symmetric. ??Tongue protrudes in the midline. MOTOR: Generalized weakness. Moves all extremities. BL LE: hip flexors 3/5, knee extension and flexion 4/5, BL DF 3/5 Bulk and tone are nomal. ??No abnormal movements are noted. REFLEXES: 1+ and symmetric in bilateral upper extremities. SENSORY: Intact to light??touch in all four extremities.?No extinction with bilateral stimulation. COORDINATION: ??Normal GAIT AND STATION: Not tested, per therapy notes CARDIOVASCULAR: Regular rate and rhythm. ??No murmurs, rubs, gallops or carotid bruits. LUNGS: Clear to auscultation bilaterally. No wheezes, rhonchi or rales. ABDOMEN: ??Soft and non-tender.?Normal bowel sounds were noted. EXTREMITIES: ??No edema, back incision dehisced IMPRESSION: Rehab Diagnosis: Respiratory Failure Impairment Code Group: Debility Physician Problem List/ Comorbidities: Active Problems: Chronic atrial fibrillation (CMS/HCC) Former smoker COPD (chronic obstructive pulmonary disease) (CMS/HCC) Hypercapnic respiratory failure (CMS/HCC) Diskitis Pneumonia Hyponatremia MEDICAL PLAN: 1. Debility: ??Complicated recent medical course. ??Comprehensive inpatient rehabilitation, family training, structured environment. 2. 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 ??F/u with surgery team. ??Complete course of bactrim. ??Chest tube out. Wound care following back incision. 3. Respiratory failure: ??S/p trach, decannulated. ??Aggressive pulm toilet. ??BDs/inhaled steroids. ??Dr Espino following. NIPPV as required. ??H/o COPD and prior tobacco abuse. 4. Dysphagia: ??S/p PEG. ??TOWING PILOT, RD f/u. ??Aspiration precautions 5. Dm2: ??A1c 4.7%: prudent diet, diabetic education. ??Metformin, SSI, accuchecks. ??RD eval. 6. CAD: ??ASA, statin, BBlocker 7. HTN: ??Metoprolol, bumex 8. Afib: ??Eliquis, amio, metoprolol 9. Urinary retention: ??Flomax, monitor UOP 10. Dyslipid; ??Statin 11. Anemia: ??ACD and ABLA. ??Monitor cbc, transfuse for hgb under 7 or if symptomatic. 12. Nutrition: rd consult. ?? * DVT prophylaxsis: eliquis * GI prophylaxsis: ppi CODE STATUS: Full Code ALLERGY: Allergies Allergen Reactions ??? Penicillins Current Facility-Administered Medications: ??? acetaminophen (TYLENOL) tablet 650 mg, 650 mg, oral, Q4H PRN, Rachna Burt MD, 650 mg at 11/02/17 1752 ??? albuterol (PROVENTIL,VENTOLIN) 2.5 mg/0.5 mL nebulizer solution 5 mg, 5 mg, nebulization, Q6H PRN, Rachna Burt MD ??? amiodarone (PACERONE) tablet 200 mg, 200 mg, oral, BID, Rachna Burt MD, 200 mg at [id number] ??? apixaban (ELIQUIS) tablet 5 mg, 5 mg, oral, BID, Rachna Burt MD, 5 mg at 11/03/17 0801 ??? ascorbic acid (VITAMIN C) tablet/chewable tablet 500 mg, 500 mg, oral, BID, Rachna Burt MD, 500 mg at 11/03/17 08 ??? aspirin enteric coated tablet 81 mg, 81 mg, oral, Daily, Rachna Burt MD, 81 mg at 803 ??? atorvastatin (LIPITOR) tablet 20 mg, 20 mg, oral, Daily, Rachna Burt MD, 20 mg at 801 ??? baclofen (LIORESAL) tablet 5 mg, 5 mg, oral, Q6H PRN, Rachna Burt MD, 5 mg at 11/02/17 1406 ??? bisacodyl (DULCOLAX) suppository 10 mg, 10 mg, rectal, Daily PRN, Jason Shore Jr., OWNER/PHOTOGRAPHER, 10 mg at 10/29/17 2139 ??? bisacodyl EC (DULCOLAX EC) tablet 5 mg, 5 mg, oral, BID PRN, Jason Shore Jr., OWNER/PHOTOGRAPHER, 5 mg at 10/29/17 1329 ??? budesonide-formoterol (SYMBICORT) 80-4.5 mcg/actuation inhaler 1 puff, 1 puff, inhalation, BID (RT), Rachna Burt MD, 1 puff at 11/03/17 0709 ??? bumetanide (BUMEX) tablet 0.5 mg, 0.5 mg, oral, Daily, Александр Espino Jr., MD, 0.5 mg at 11/03/17 08 ??? chlorhexidine (PERIDEX) 0.12 % solution 5 mL, 5 mL, mouth/throat, BID, Rachna Burt MD, 5 mL at 11/03/17 0804 ??? collagenase 250 unit/gram ointment, , topical, Daily, Rachna Burt MD ??? dextrose (GLUTOSE) 40 % gel 15 g, 15 g, oral, Q15 Min PRN, Jason Shore Jr., OWNER/PHOTOGRAPHER ??? dextrose 50% (concentrated solution) CONCENTRATED solution 25 g, 25 g, intravenous, Q15 Min PRN, Jason Shore Jr., OWNER/PHOTOGRAPHER ??? diphenhydrAMINE (BENADRYL) tab/cap 25 mg, 25 mg, oral, TID PRN, Rachna Burt MD ??? docusate sodium (COLACE) capsule 100 mg, 100 mg, oral, BID, Jason Shore Jr., NP, 100 mg at 11/03/17 0801 ??? ergocalciferol (VITAMIN D) capsule 50,000 Units, 50,000 Units, oral, Weekly, Adam Pastor MD, 50,000 Units at 11/02/17 0719 ??? glucagon injection 1 mg, 1 mg, intramuscular, Q30 Min PRN, Jason Shore Jr., NP ??? ipratropium-albuterol (DUO-NEB) 0.5-2.5 mg/3 mL nebulizer solution 3 mL, 3 mL, nebulization, Q4H PRN (RT), Rachna Burt MD ??? lidocaine (LIDODERM) 5 % patch 1 patch, 1 patch, transdermal, Daily, Jason Shore Jr., NP, 1patch at 11/03/17 0802 ??? metoprolol (LOPRESSOR) tablet 12.5 mg, 12.5 mg, oral, BID, Rachna Burt MD, 12.5 mg at 11/03/17 0800 ??? miconazole 2 % powder, , topical, BID, Rachna Burt MD ??? ondansetron (ZOFRAN) tablet 4 mg, 4 mg, oral, Q4H PRN, Rachna Burt MD, 4 mg at 11/03/17 1010 ??? oxyCODONE (ROXICODONE) tablet 10 mg, 10 mg, oral, Q4H PRN, Rachna Burt MD, 10 mg at 11/03/17 0726 ??? oxyCODONE (ROXICODONE) tablet 5 mg, 5 mg, oral, Q4H PRN, Rachna Burt MD, 5 mg at 11/01/17 1313 ??? pantoprazole DR (PROTONIX) extended release tablet 40 mg, 40 mg, oral, Daily, Rachna Burt MD, 40 mg at 11/03/17 0800 ??? polyethylene glycol (MIRALAX) packet 17 g, 17 g, oral, BID PRN, Jason Shore Jr., OWNER/PHOTOGRAPHER, 17 g at 11/03/17 0805 ??? senna (SENOKOT) tablet 1 tablet, 1 tablet, oral, Daily, Rachna Burt MD, 1 tablet at 11/03/17 08 ??? tamsulosin (FLOMAX) extended release capsule 0.4 mg, 0.4 mg, oral, Nightly, Rachna Burt MD, 0.4 mg at 11/02/172199 ??? zinc sulfate (ZINCATE) capsule 220 mg, 220 mg, oral, Daily, Rachna Burt MD, 220 mg at 11/03/17 08 ??? zolpidem (AMBIEN) tablet 5 mg, 5 mg, oral, Nightly PRN, Rachna Burt MD, 5 mg at 11/02/172199 Current functional status: PT Functional Mobility: Sit<-->stand x5 reps in // bars with max assit x2 and SARAH UE support with longest stand lasting 47 seconds and long rest breaks needed between standing attempts, WC-->mat with max assist x1 via slide board, seated hamstring stretches, sit-->supine with mod assistfor SARAH LEs, seated SARAH LE exercises and stretches in supine on mat, supine-->sit with max assist, mat-->WC with max assist x1 for right sided slide board transfer, etc. Pt reports much increased pain and back/leg muscle spasms today, which are not only palpable but very visible during attempt to perform supine LE exercises. OT states pt recently vomited and didn't keep down some of his morning meds, but RN states despite this pt can't get any more muscle spasm or pain medicine despite pt's complaints. PT requested a heating pad and muscle rub cream (per pt's request as he uses Icy Hot at home) for intermittent pain relief, and pt may also benefit from TENS unit as needed. Due to nausea, vomiting, significant pain, and lack of abdominal binder to protect PEG tube (being delivered later today), PT decided not to initiate LiteGait training today due to poor pt tolerance. PT will atte mpt LiteGait another session when pt is feeling better. Pt w/ poor tolerance of PT session today, w/ shorter standing times and unable to tolerate as many stretches and LE exercises. 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 This weak left LE significantly limits his standing ability, as ptneeds max assit to block both knees when attempting to stand, and left knee gives out first and can't maintain pt in standing. Pt's bed mobility is slightly improved since last session, but transfersremain unchanged. Continue per plan of care. OT Functional Mobility: Pt. completes supine to sit max assist and 2 person DEP for sit to stand with manual stand aid. Pt able to assist slightly more when pulling self up in manual sit to stand this date OT Self Care: DEP to minimal assist for self care with 1 to 2 people. Pt using rolling shower chairwith sarah supports and manual stand aid 2 person with LE dressing. Pt demonstrates general decreasedbalance, endurance, strength and sensation. Pt will benefit from continued skilled OT to promote IND toward goals. Pt. vomiting this AM and RN notified. OT Cognition: Appears WNL OT Communication: decreased vocal strength at times. TOWING PILOT Cognition: WFL TOWING PILOT Communication: WFL TOWING PILOT Swallowing: WFL: Regular consistency with thin liquids, tolerating diet well Patient/caregiver goals:Patient and Family Goals: to return home Pre hospital Living environment: Home Setting: Split level home Prehospital Lives With: Spouse;Adult children REVIEW OF DATA: Recent Results (from the past 24 hour(s)) CBC with auto differential Collection Time: 11/03/17 5:38 AM Result Value Ref Range WBC 5.5 3.8 - 9.9 K/cumm RBC 3.22 (L) 4.30 - 5.80 M/cumm Hgb 9.3 (L) 13.0 - 17.5 g/dL Hct 31.1 (L) 38.9 - 50.3 % MCV 96.6 (H) 81.3 - 96.4 fL MCH 28.9 27.1 - 33.3 pg MCHC 29.9 (L) 32.3 - 35.7 g/dL RDW CV 18.1 (H) 11.1 - 14.9 % RDW SD 64.4 (H) 35.7 - 48.1 fL Plt 160 150 - 400 K/cumm MPV 11.8 9.1 - 12.3 fL NRBC Abs 0.00 0.00 - 0.01 K/cumm Comprehensive metabolic panel Collection Time: 11/03/17 5:38 AM Result Value Ref Range Sodium 139 135 - 145 mmol/L Potassium 4.1 3.3 - 4.9 mmol/L CO2 29 22 - 32 mmol/L BUN 14 8 - 25 mg/dL Glucose 89 70 - 199 mg/dL Creatinine 0.74 (L) 0.80 - 1.30 mg/dL Calcium 8.7 8.5 - 10.3 mg/dL Chloride 100 97 - 110 mmol/L Albumin 3.0 (L) 3.5 - 5.0 g/dL AST 28 10 - 50 Units/L ALT 38 7 - 55 Units/L Alk phos 144 (H) 40 - 130 Units/L Bilirubin 0.3 0.1 - 1.2 mg/dL Protein, pl 5.8 (L) 6.5 - 8.5 g/dL Anion Gap 10 2 - 15 mmol/L Differential, auto Collection Time: 11/03/17 5:38 AM Result Value Ref Range Neutrophil absolute 4.2 1.7 - 6.5 K/cumm Immature granulocyte absolute 0.0 0.0 - 0.1 K/cumm Lymphocytes absolute 0.5 (L) 0.8 - 3.3 K/cumm Monocyte absolute 0.5 0.2 - 0.8 K/cumm Eosinophils absolute 0.3 0.0 - 0.5 K/cumm Basophils, abs 0.0 0.0 - 0.1 K/cumm Neutrophils 77.0 % Immature granulocytes 0.5 % Lymphocytes 8.3 % Monocytes 9.1 % Eosinophils 4.7 % Basophils 0.4 % eGFR Collection Time: 11/03/17 5:38 AM Result Value Ref Range GFR 95 mL/min/1.73 m2 REVIEW OF IMAGING: Imaging (Last 96 hours) 10/22 1037 XR Chest 1 Vw REHABILITATION DIAGNOSIS: Impairment Code Group: Debility REHAB PLAN OF CARE: The Interdisciplinary Team will work collaboratively to address the patient problems and goals to be managed by the Individualized Interdisciplinary Plan of Care. Rehabilitation Precautions/Restrictions: Falls;MRSA colonization;Isolation Multi-Disciplinary Problems Active Problems Problem: Health Behavior: Start Date: 10/24/17 Goal Start Date End Date Understanding of discharge needs will improve 10/24/17 -- Goal Intervention Frequency Start Date End Date Discuss information regarding discharge instructions -- 10/24/17 -- Goal Intervention Frequency Start Date End Date Identify discharge learning needs (meds, wound care, etc) -- 10/24/17 -- Goal Intervention Frequency Start Date End Date Collaborate with case management -- 10/24/17 -- Intervention Details: (Coordinate discharge planning if the patient needs post- hospital services onphysician order or complex needs related to functional status, cognitive ability, or social supportsystem) Goal Intervention Frequency Start Date End Date Arrange for needed discharge resources and transportation as appropriate -- 10/24/17 -- Goal Intervention Frequency Start Date End Date Identify discharge barriers -- 10/24/17 -- Goal Intervention Frequency Start Date End Date Collaborate with spanish interpreter -- 10/24/17 -- Problem: Lack of Knowledge: Start Date: 10/25/17 Goal Start Date End Date Ability to state ways to decrease the risk of falls will improve 10/25/17 -- Goal Intervention Frequency Start Date End Date Teach fall prevention measures -- 10/25/17 -- Goal Intervention Frequency Start Date End Date Teach information regarding appropriate environmental changes -- 10/25/17 -- Problem: Safety: Start Date: 10/25/17 Goal Start Date End Date Will remain free from falls 10/25/17 -- Goal Intervention Frequency Start Date End Date Assess risk factors for falls -- 10/25/17 -- Intervention Details: (including medications) Goal Intervention Frequency Start Date End Date Implement fall prevention measures -- 10/25/17 -- Goal Intervention Frequency Start Date End Date Collaborate with other disciplines -- 10/25/17 -- Intervention Details: (PT, OT, Pharmacy, MD, etc.) Goal Start Date End Date Will remain free from injury from falls 10/25/17 -- Goal Intervention Frequency Start Date End Date Provide safe environment for conduction of activities of daily living -- 10/25/17 -- Goal Start Date End Date Will remain free from falls and injury in home environment 10/25/17 -- Goal Intervention Frequency Start Date End Date Assess environmental risk factors -- 10/25/17 -- Problem: Activity: Start Date: 10/25/17 Goal Start Date End Date Mobility will improve 10/25/17 -- Goal Intervention Frequency Start Date End Date Encourage mobilization to extent of ability -- 10/25/17 -- Goal Intervention Frequency Start Date End Date Perform repositioning -- 10/25/17 -- Goal Intervention Frequency Start Date End Date Collaborate with physical therapy -- 10/25/17 -- Problem: Lack of Knowledge: Start Date: 10/25/17 Goal Start Date End Date Understanding of ways to prevent future skin breakdown will improve 10/25/17 -- Goal Intervention Frequency Start Date End Date Discuss precautions to protect skin integrity -- 10/25/17 -- Goal Intervention Frequency Start Date End Date Discuss treatment plan for related conditions -- 10/25/17 -- Goal Start Date End Date Ability to identify appropriate dietary choices will improve 10/25/17 -- Goal Intervention Frequency Start Date End Date Discuss dietary adjustments -- 10/25/17 -- Problem: Nutritional: Start Date: 10/25/17 Goal Start Date End Date Dietary intake will improve 10/25/17 -- Goal Intervention Frequency Start Date End Date Assess nutritional status -- 10/25/17 -- Goal Intervention Frequency Start Date End Date Collaborate with dietitian -- 10/25/17 -- Goal Intervention Frequency Start Date End Date Assist appropriate dietary choices -- 10/25/17 -- Goal Start Date End Date Ability to maintain a balanced intake and output will improve 10/25/17 -- Goal Intervention Frequency Start Date End Date Assess intake and output -- 10/25/17 -- Problem: Skin Integrity: Start Date: 10/25/17 Goal Start Date End Date Risk for impaired skin integrity will decrease 10/25/17 -- Goal Intervention Frequency Start Date End Date Identify risk factors for impaired skin integrity and/or pressure injuries -- 10/25/17 -- Goal Intervention Frequency Start Date End Date Monitor medication effects -- 10/25/17 -- Goal Intervention Frequency Start Date End Date Implement precautions to protect skin integrity -- 10/25/17 -- Goal Intervention Frequency Start Date End Date Use moisturizing agent to dry skin -- 10/25/17 -- Goal Intervention Frequency Start Date End Date Perform cleansing of skin when soiled -- 10/25/17 -- Goal Intervention Frequency Start Date End Date Provide pressure-relief bed or mattress -- 10/25/17 -- Goal Start Date End Date Ability to demonstrate warm and dry skin will improve 10/25/17 -- Goal Intervention Frequency Start Date End Date Monitor skin integrity, appearance and/or temperature -- 10/25/17 -- Goal Start Date End Date Circulation will improve to fullest extent possible 10/25/17 -- Goal Intervention Frequency Start Date End Date Assess circulation, sensation and/or motion of extremity -- 10/25/17 -- Problem: Bladder/Voiding Start Date: 10/25/17 Goal Start Date End Date LTG - Patient will achieve acceptable level of continence 10/25/17 -- Goal Start Date End Date STG - Patient demonstrates no accidents 10/25/17 -- Goal Intervention Frequency Start Date End Date Encourage toileting PRN 10/25/17 -- Goal Intervention Frequency Start Date End Date Educate patient about medications PRN 10/25/17 -- Problem: Bowel Elimination Start Date: 10/25/17 Goal Start Date End Date LTG - Patient will have regular and routine bowel evacuation 10/25/17 -- Goal Start Date End Date LTG - Patient will complete bowel elimination 10/25/17 -- Goal Start Date End Date STG - Patient maintains skin integrity 10/25/17 -- Goal Intervention Frequency Start Date End Date Educate patient about ostomy appliances, correct application, protection of skin PRN 10/25/17 -- Goal Start Date End Date STG - Patient will verbalize signs and symptoms of constipation and how to prevent/alleviate 10/25/17 -- Goal Intervention Frequency Start Date End Date Encourage use of aids (stool softener, laxative, suppository) PRN 10/25/17 -- Goal Intervention Frequency Start Date End Date Encourage adjustment and monitoring of fluid intake PRN 10/25/17 -- Goal Intervention Frequency Start Date End Date Teach patient about symptoms of impaction PRN 10/25/17 -- Goal Intervention Frequency Start Date End Date Educate patient about effect of fluid intake on bowel movement PRN 10/25/17 -- Goal Intervention Frequency Start Date End Date Educate patient about adequate fluid intake PRN 10/25/17 -- Goal Start Date End Date STG - Patient will be continent of stool 10/25/17 -- Goal Start Date End Date STG - Patient verbalizes knowledge about relationship between diet, fluid intake, activity and medication on constipation 10/25/17 -- Goal Intervention Frequency Start Date End Date Educate patient about medications PRN 10/25/17 -- Goal Intervention Frequency Start Date End Date Educate patient about adequate fluid intake PRN 10/25/17 -- Problem: Breathing Start Date: 10/25/17 Goal Start Date End Date STG - Respiratory rate and effort will be within normal limits for the patient 10/25/17 -- Goal Intervention Frequency Start Date End Date Provide oxygen therapy as ordered PRN 10/25/17 -- Goal Intervention Frequency Start Date End Date Monitor oygen saturation PRN 10/25/17 -- Goal Intervention Frequency Start Date End Date Encourage incentive spirometer x 10 each hour while awake PRN 10/25/17 -- Goal Intervention Frequency Start Date End Date Encourage/perform oral hygiene as appropriate PRN 10/25/17 -- Goal Intervention Frequency Start Date End Date Collaborate with respiratory therapy to administer medications/treatments PRN 10/25/17 -- Goal Start Date End Date STG - Patient/family will be able to verbalize oxygen safety precautions 10/25/17 -- Goal Intervention Frequency Start Date End Date Educate patient about oxygen PRN 10/25/17 -- Goal Start Date End Date STG - Patient will utilize incentive spirometer 10/25/17 -- Goal Intervention Frequency Start Date End Date Encourage incentive spirometer x 10 each hour while awake PRN 10/25/17 -- Goal Intervention Frequency Start Date End Date Encourage use of incentive spirometer PRN 10/25/17 -- Goal Start Date End Date STG - Patient performs or directs assisted coughing 10/25/17 -- Goal Intervention Frequency Start Date End Date Instruct on coughing and deep breathing PRN 10/25/17 -- Goal Intervention Frequency Start Date End Date Educate patient about forced cough PRN 10/25/17 -- Goal Intervention Frequency Start Date End Date Teach patient about assistive cough PRN 10/25/17 -- Problem: Pain Start Date: 10/25/17 Goal Start Date End Date STG - Pain is manageable through therapies 10/25/17 -- Goal Start Date End Date STG - Patient will verbalize an acceptable level of pain 10/25/17 -- Problem: OT Misc Start Date: 10/25/17 Goal Start Date End Date [facility] 10/25/17 -- Goal Details: Pt to dress modified IND Goal Start Date End Date [facility] 10/25/17 -- Goal Details: Pt to groom modified IND Goal Start Date End Date [facility] 10/25/17 -- Goal Details: Pt to bathe with transfer modified IND Goal Start Date End Date [facility] [place] 4 10/25/17 -- Goal Details: Pt to toilet with transfer modified IND Goal Start Date End Date [facility] [place] 5 10/25/17 -- Goal Details: Pt to complete UE HEP with IND to promote IND with self care and functional transfers Problem: Cognitive: Start Date: 10/25/17 Goal Start Date End Date [facility] 1 10/25/17 -- Goal Details: Patient will execute multiple elements of a task with supervision Goal Start Date End Date [facility] 2 10/25/17 -- Goal Details: Patient will increase problem solving to complete tasks at 90% or with supervision Problem: Physical Regulation: Start Date: 10/25/17 Goal Start Date End Date [facility] 3 10/25/17 -- Goal Details: Patient will increase general strength/coordination through various exercises with supervision until disch Problem: Respiratory: Start Date: 10/25/17 Goal Start Date End Date [facility] 4 10/25/17 -- Goal Details: Patient will maintain/increase SPO2 by 1% in at least one session prior to disch Goal Start Date End Date [facility] 5 10/25/17 -- Goal Details: Patient will increase pulmonary function through various exercises with supervision until disch Problem: [facility] Start Date: 10/25/17 Goal Start Date End Date [facility] [place] 1 10/25/17 -- Goal Details: Pt will roll SARAH and supine<-->sit EOB with supervision and bedrails as needed.Pt will sit<-->stand with minimum assist and appropriate assistive device. Pt will transfer bed<-->wheelchair/chair with minimum assist and appropriate assistive device. Goal Start Date End Date [facility] [place] 2 10/25/17 -- Goal Details: Pt will ambulate 150' w/ minimum assist and appropriate assistive device. Pt will ambulate up/down 4 stairs with mod assist and SARAH rails. Goal Start Date End Date [facility] [place] 3 10/25/17 -- Goal Details: Pt will propel WC 150' with supervision and extra time. Goal Start Date End Date [facility] 10/25/17 -- Goal Details: Pt will complete SARAH LE HEP x15 reps with supervision. Goal Start Date End Date [facility]– [place] 5 10/25/17 -- Goal Details: Pt and/or family will verbalize and demonstrate understanding of pt's safety and mobility needs upon discharge. * Александр Espino Jr., MD - 11/03/2017 7:40 AM CDT Pulmonary / Critical Care Daily Progress Chief Complaint/HPI/Hospital Course: Good night. Tolerating BiPAP. With physical therapy. Less edema on exam. Up in chair eating breakfast. Normal pCO2. Comfortable on room air. Will plan on discontinuing BiPAP Review of Systems: Review of Systems Constitutional: Negative for chills, fatigue and fever. HENT: Negative for congestion, sore throat and trouble swallowing. Respiratory: Negative for cough, chest tightness, shortness of breath and wheezing. Cardiovascular: Negative for chest pain and leg swelling. Gastrointestinal: Negative for diarrhea, nausea and vomiting. Genitourinary: Negative for dysuria and hematuria. Neurological: Positive for weakness. Negative for dizziness and headaches. Psychiatric/Behavioral: Negative for behavioral problems and sleep disturbance. Temp: [36.3 ??C (97.4 ??F)-36.6 ??C (97.8 ??F)] 36.6 ??C (97.8 ??F) Pulse: [80-89] 82 Resp: [18-20] 20 BP: (107-127)/(67-73) 107/69 FiO2 (%): [35 %] 35 % I/O last 2 completed shifts: In: 710 [P.O.:710] Out: 1000 [Urine:1000] No intake/output data recorded. Oxygen / Pulmonary Events Vent settings for last 24 hours: FiO2 (%): [35 %] 35 % Oxygen Therapy SpO2: 95 % Pulse Oximetry Type: Intermittent Patient Activity: At rest O2 Therapy: None (Room air) O2 Del Method: CPAP/Bi-PAP mask FiO2 (%): 35 % O2 Flow Rate (L/min): 2 L/min] Physical exam: Physical Exam Constitutional: He is oriented to person, place, and time. He appears well- developed. No distress. HENT: Head: Normocephalic. Mouth/Throat: Oropharynx is clear and moist. Eyes: Pupils are equal, round, and reactive to light. Right eye exhibits no discharge. Left eye exhibits no discharge. Cardiovascular: Regular rhythm and normal heart sounds. Tachycardia present. Pulmonary/Chest: Effort normal and breath sounds normal. He has no wheezes. He has no rales. Abdominal: There is no rebound and no guarding. Peg Musculoskeletal: He exhibits edema. Neurological: He is alert and oriented to person, place, and time. Psychiatric: He has a normal mood and affect. Current Facility-Administered Medications: ??? acetaminophen (TYLENOL) tablet 650 mg, 650 mg, oral, Q4H PRN, Rachna Burt MD, 650 mg at 11/02/17 1752 ??? albuterol (PROVENTIL,VENTOLIN) 2.5 mg/0.5 mL nebulizer solution 5 mg, 5 mg, nebulization, Q6H PRN, Rachna Burt MD ??? amiodarone (PACERONE) tablet 200 mg, 200 mg, oral, BID, Rachna Burt MD, 200 mg at 200 ??? apixaban (ELIQUIS) tablet 5 mg, 5 mg, oral, BID, Rachna Burt MD, 5 mg at 11/02/170 ??? ascorbic acid (VITAMIN C) tablet/chewable tablet 500 mg, 500 mg, oral, BID, Rachna Burt MD, 500 mg at 11/02/170 ??? aspirin enteric coated tablet 81 mg, 81 mg, oral, Daily, Rachna Burt MD, 81 mg at ??? atorvastatin (LIPITOR) tablet 20 mg, 20 mg, oral, Daily, Rachna Burt MD, 20 mg at 8 ??? baclofen (LIORESAL) tablet 5 mg, 5 mg, oral, Q6H PRN, Rachna Burt MD, 5 mg at 11/02/17 1406 ??? bisacodyl (DULCOLAX) suppository 10 mg, 10 mg, rectal, Daily PRN, Jason Shore Jr., OWNER/PHOTOGRAPHER, 10 mg at 10/29/172138 ??? bisacodyl EC (DULCOLAX EC) tablet 5 mg, 5 mg, oral, BID PRN, Jason Shore Jr., OWNER/PHOTOGRAPHER, 5 mg at 10/29/17 1329 ??? budesonide-formoterol (SYMBICORT) 80-4.5 mcg/actuation inhaler 1 puff, 1 puff, inhalation, BID (RT), Rachna Burt MD, 1 puff at 11/03/17 0709 ??? bumetanide (BUMEX) tablet 0.5 mg, 0.5 mg, oral, Daily, Александр Espino Jr., MD, 0.5 mg at 11/02/17 0718 ??? chlorhexidine (PERIDEX) 0.12 % solution 5 mL, 5 mL, mouth/throat, BID, Rachna Burt MD, 5 mL at 11/02/172200 ??? collagenase 250 unit/gram ointment, , topical, Daily, Rachna Burt MD ??? dextrose (GLUTOSE) 40 % gel 15 g, 15 g, oral, Q15 Min PRN, Jason Shore Jr., OWNER/PHOTOGRAPHER ??? dextrose 50% (concentrated solution) CONCENTRATED solution 25 g, 25 g, intravenous, Q15 Min PRN, Jason Shore Jr., OWNER/PHOTOGRAPHER ??? diphenhydrAMINE (BENADRYL) tab/cap 25 mg, 25 mg, oral, TID PRN, Rachna Burt MD ??? docusate sodium (COLACE) capsule 100 mg, 100 mg, oral, BID, Jason Shore Jr., BELLA, 100 mg at 11/02/17 2200 ??? ergocalciferol (VITAMIN D) capsule 50,000 Units, 50,000 Units, oral, Weekly, Adam Pastor MD, 50,000 Units at 11/02/17 0719 ??? glucagon injection 1 mg, 1 mg, intramuscular, Q30 Min PRN, Jason Shore Jr., BELLA ??? ipratropium-albuterol (DUO-NEB) 0.5-2.5 mg/3 mL nebulizer solution 3 mL, 3 mL, nebulization, Q4H PRN (RT), Rachna Burt MD ??? lidocaine (LIDODERM) 5 % patch 1 patch, 1 patch, transdermal, Daily, Jason Shore Jr., OWNER/PHOTOGRAPHER, Stopped at 11/02/17 1915 ??? metoprolol (LOPRESSOR) tablet 12.5 mg, 12.5 mg, oral, BID, Rachna Burt MD, 12.5 mg at 11/02/172199 ??? miconazole 2 % powder, , topical, BID, Rachna Burt MD ??? ondansetron (ZOFRAN) tablet 4 mg, 4 mg, oral, Q4H PRN, Rachna Burt MD, 4 mg at 11/02/17 1126 ??? oxyCODONE (ROXICODONE) tablet 10 mg, 10 mg, oral, Q4H PRN, Rachna Burt MD, 10 mg at 11/03/17 0726 ??? oxyCODONE (ROXICODONE) tablet 5 mg, 5 mg, oral, Q4H PRN, Rachna Burt MD, 5 mg at 11/01/17 1313 ??? pantoprazole DR (PROTONIX) extended release tablet 40 mg, 40 mg, oral, Daily, Rachna Burt MD, 40 mg at 11/02/17717 ??? polyethylene glycol (MIRALAX) packet 17 g, 17 g, oral, BID PRN, Jason Sohre Jr., OWNER/PHOTOGRAPHER, 17 g at 10/29/17 0842 ??? senna (SENOKOT) tablet 1 tablet, 1 tablet, oral, Daily, Rachna Burt MD, 1 tablet at 11/02/17717 ??? tamsulosin (FLOMAX) extended release capsule 0.4 mg, 0.4 mg, oral, Nightly, Rachna Burt MD, 0.4 mg at 11/02/172199 ??? zinc sulfate (ZINCATE) capsule 220 mg, 220 mg, oral, Daily, Rachna Burt MD, 220 mg at 11/02/17717 ??? zolpidem (AMBIEN) tablet 5 mg, 5 mg, oral, Nightly PRN, Rachna Burt MD, 5 mg at 11/02/170 Labs: Labs reviewed: Mild hyponatremia. Hypercapnia has resolved Recent Results (from the past 24 hour(s)) CBC with auto differential Collection Time: 11/03/17 5:38 AM Result Value Ref Range WBC 5.5 3.8 - 9.9 K/cumm RBC 3.22 (L) 4.30 - 5.80 M/cumm Hgb 9.3 (L) 13.0 - 17.5 g/dL Hct 31.1 (L) 38.9 - 50.3 % MCV 96.6 (H) 81.3 - 96.4 fL MCH 28.9 27.1 - 33.3 pg MCHC 29.9 (L) 32.3 - 35.7 g/dL RDW CV 18.1 (H) 11.1 - 14.9 % RDW SD 64.4 (H) 35.7 - 48.1 fL Plt 160 150 - 400 K/cumm MPV 11.8 9.1 - 12.3 fL NRBC Abs 0.00 0.00 - 0.01 K/cumm Differential, auto Collection Time: 11/03/17 5:38 AM Result Value Ref Range Neutrophil absolute 4.2 1.7 - 6.5 K/cumm Immature granulocyte absolute 0.0 0.0 - 0.1 K/cumm Lymphocytes absolute 0.5 (L) 0.8 - 3.3 K/cumm Monocyte absolute 0.5 0.2 - 0.8 K/cumm Eosinophils absolute 0.3 0.0 - 0.5 K/cumm Basophils, abs 0.0 0.0 - 0.1 K/cumm Neutrophils 77.0 % Immature granulocytes 0.5 % Lymphocytes 8.3 % Monocytes 9.1 % Eosinophils 4.7 % Basophils 0.4 % Imaging: Chest x-ray October 30 improved Diagnostics: Ejection fraction 65%. No vegetations. Mild left atrial enlargement Microbiology: Positive sputum culture for stenotrophomonas on October 13 Assessment & Plan: Assessment/Plan Hyponatremia Assessment & Plan Hyponatremia. Suspect dilutional. Monitor renal function with diuresis. Less edema on exam Pneumonia Assessment & Plan Completed treatment for pneumonia, empyema prior to transfer to [facility]. Finished Bactrim for stenotrophomonas pneumonia here. Two-view chest x-ray much better Diskitis Assessment & Plan Completed debridement, prolonged antibiotic therapy for an L1 diskitis. Has had some back pain. Hypercapnic respiratory failure (CMS/HCC) Assessment & Plan Successfully decannulated. Comfortable on room air. Discontinue BiPAP COPD (chronic obstructive pulmonary disease) ([facility]) Assessment & Plan Pulmonary function testing when stable. Continue inhaled bronchodilator therapy. Former smoker Assessment & Plan May meet criteria for lung cancer screen Chronic atrial fibrillation ([facility]) Assessment & Plan Hemodynamically stable. Monitor for bleeding. Continue amiodarone, aspirin, Lipitor, metoprolol, apixaban For today: Off Bactrim for stenotrophomonas pneumonia. Diuretic dose adjusted. Hyponatremia is stable. I suspect dilutional based on physical exam, increased total body water. He is not on a thiazide, SSRI etc. Less edema on exam. Blood gas noted. Normal pCO2. Discontinue BiPAP Prophylaxis: DVT ppx: Long-term oral anticoagulation At Code Status: Full Code. Александр Espino Jr., MD 11/03/2017 7:42 AM This note was transcribed using Speech Recognition software. As a result, there may be grammatical and spelling errors that are unintended. Every attempt is made to have correct dictation. If there are any questions or major errors, please contact me * Germaine Fountain RRT - 11/03/2017 7:17 AM CDT Continue current therapy for Home Regimen. 11/03/17 0700 RT Protocol Assessment RT Assessment Scoring Needed Bronchodilator * Germaine Fountain RRT - 11/02/2017 12:47 PM CDT Continue current therapy for home regimen 11/02/17 0705 RT Protocol Assessment RT Assessment Scoring Needed Bronchodilator * Rachna Burt MD - 11/02/2017 10:39 AM CDT [facility] Rehabilitation Medicine Progress Note NAME: José Miguel Jang AGE: 66 y.o. : 1950 Date of Note: 11/02/2017 REHABILITATION PROGRESS NOTE Physician Physical Assessment/ Progress Note Rehab Impairment Code: Impairment Code Group: Debility Date of onset: Date of Onset: 07/29/17 Date of admission: 10/24/2017 Subjective: Slept well. Seen with therapy this morning. Trach stoma healing. Tolerating BiPAP. Pulmonology following. PEG in place. Consider removal. Eating well. Still endurance significantly compromised. Max assist with slide board transfer. Generalized weakness. Back incision c/d/i. Wound care following. Santyl to an area of partial dehiscence. No erythema. Serous drainage. Slowly healing. Encouraged po intake. Continue supplements. Continent of bowel and bladder. On eliquis. Anemia, monitor. Glucose overall controlled. IM following. No fever chills, chest pain , or acute sob. Family supportive. PHYSICAL EXAMINATION: Vitals: 11/01/17 2150 11/02/17 0305 11/02/17 0704 11/02/17 0716 BP: 114/71 117/76 118/56 BP Location: Right arm Patient Position: Lying Pulse: 82 83 78 Resp: 18 Temp: TempSrc: SpO2: 100% 97% Weight: Height: Physical exam:?? GENERAL: Pleasant and in no acute distress MENTAL STATUS: ??Awake, alert and oriented to person, place and time with normal attention span, insight, and concentration. ??Naming and repetition are normal. ??Remote and recent memory intact. ??Fund of knowledge is appropriate. SPEECH: ??Fluent, non-dysarthric, no aphasia noted CRANIAL NERVES: Visual herrera are full on confrontation. ??Pupils are equally round and reactive tolight??bilaterally. Extraocular movements are??full and intact. No nystagmus is noted. ??There is no loss of sensation over the face. ??There is no facial weakness or asymmetry. ??Hearing intact bilaterally to finger rubbing. Uvula and palate elevate in the midline. Shoulder shrug is symmetric. ??Tongue protrudes in the midline. MOTOR: Generalized weakness. Moves all extremities. BL LE: hip flexors 3/5, knee extension and flexion 4/5, BL DF 3/5 Bulk and tone are nomal. ??No abnormal movements are noted. REFLEXES: 1+ and symmetric in bilateral upper extremities. SENSORY: Intact to light??touch in all four extremities.?No extinction with bilateral stimulation. COORDINATION: ??Normal GAIT AND STATION: Not tested, per therapy notes CARDIOVASCULAR: Regular rate and rhythm. ??No murmurs, rubs, gallops or carotid bruits. LUNGS: Clear to auscultation bilaterally. No wheezes, rhonchi or rales. ABDOMEN: ??Soft and non-tender.?Normal bowel sounds were noted. EXTREMITIES: ??No edema, back incision dehisced IMPRESSION: Rehab Diagnosis: Respiratory Failure Impairment Code Group: Debility Physician Problem List/ Comorbidities: Active Problems: Chronic atrial fibrillation ([facility]) Former smoker COPD (chronic obstructive pulmonary disease) ([facility]) Hypercapnic respiratory failure ([facility]) Diskitis Pneumonia Hyponatremia MEDICAL PLAN: 1. Debility: ??Complicated recent medical course. ??Comprehensive inpatient rehabilitation, family training, structured environment. 2. 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 ??F/u with surgery team. ??Complete course of bactrim. ??Chest tube out. Wound care following back incision. 3. Respiratory failure: ??S/p trach, decannulated. ??Aggressive pulm toilet. ??BDs/inhaled steroids. ??Dr Espino following. NIPPV as required. ??H/o COPD and prior tobacco abuse. 4. Dysphagia: ??S/p PEG. ??TOWING PILOT, RD f/u. ??Aspiration precautions 5. Dm2: ??A1c 4.7%: prudent diet, diabetic education. ??Metformin, SSI, accuchecks. ??RD eval. 6. CAD: ??ASA, statin, BBlocker 7. HTN: ??Metoprolol, bumex 8. Afib: ??Eliquis, amio, metoprolol 9. Urinary retention: ??Flomax, monitor UOP 10. Dyslipid; ??Statin 11. Anemia: ??ACD and ABLA. ??Monitor cbc, transfuse for hgb under 7 or if symptomatic. 12. Nutrition: rd consult. ?? * DVT prophylaxsis: eliquis * GI prophylaxsis: ppi CODE STATUS: Full Code ALLERGY: Allergies Allergen Reactions ??? Penicillins Current Facility-Administered Medications: ??? acetaminophen (TYLENOL) tablet 650 mg, 650 mg, oral, Q4H PRN, Rachna Burt MD, 650 mg at 11/01/17 1853 ??? albuterol (PROVENTIL,VENTOLIN) 2.5 mg/0.5 mL nebulizer solution 5 mg, 5 mg, nebulization, Q6H PRN, Rachna Burt MD ??? amiodarone (PACERONE) tablet 200 mg, 200 mg, oral, BID, Rachna Burt MD, 200 mg at ??? apixaban (ELIQUIS) tablet 5 mg, 5 mg, oral, BID, Rachna Burt MD, 5 mg at 11/02/17718 ??? ascorbic acid (VITAMIN C) tablet/chewable tablet 500 mg, 500 mg, oral, BID, Rachna Burt MD, 500 mg at 11/02/17716 ??? aspirin enteric coated tablet 81 mg, 81 mg, oral, Daily, Rachna Burt MD, 81 mg at ??? atorvastatin (LIPITOR) tablet 20 mg, 20 mg, oral, Daily, Rachna Burt MD, 20 mg at ??? baclofen (LIORESAL) tablet 5 mg, 5 mg, oral, Q6H PRN, Rachna Burt MD, 5 mg at 11/02/17716 ??? bisacodyl (DULCOLAX) suppository 10 mg, 10 mg, rectal, Daily PRN, Jason Shore Jr. OWNER/PHOTOGRAPHER, 10 mg at 10/29/17 2139 ??? bisacodyl EC (DULCOLAX EC) tablet 5 mg, 5 mg, oral, BID PRN, Jason Shore Jr. OWNER/PHOTOGRAPHER, 5 mg at 10/29/17 1329 ??? budesonide-formoterol (SYMBICORT) 80-4.5 mcg/actuation inhaler 1 puff, 1 puff, inhalation, BID (RT), Rachna Burt MD, 1 puff at 11/02/17 0704 ??? bumetanide (BUMEX) tablet 0.5 mg, 0.5 mg, oral, Daily, Александр Espino Jr., MD, 0.5 mg at 05/30/18 0718 ??? chlorhexidine (PERIDEX) 0.12 % solution 5 mL, 5 mL, mouth/throat, BID, Rachna Burt MD, 5 mL at 11/02/17724 ??? collagenase 250 unit/gram ointment, , topical, Daily, Rachna Burt MD ??? dextrose (GLUTOSE) 40 % gel 15 g, 15 g, oral, Q15 Min PRN, Jason Shore Jr., OWNER/PHOTOGRAPHER ??? dextrose 50% (concentrated solution) CONCENTRATED solution 25 g, 25 g, intravenous, Q15 Min PRN, Jason Shore Jr., OWNER/PHOTOGRAPHER ??? diphenhydrAMINE (BENADRYL) tab/cap 25 mg, 25 mg, oral, TID PRN, Rachna Burt MD ??? docusate sodium (COLACE) capsule 100 mg, 100 mg, oral, BID, Jason Shore Jr., OWNER/PHOTOGRAPHER, 100 mg at 11/02/17718 ??? ergocalciferol (VITAMIN D) capsule 50,000 Units, 50,000 Units, oral, Weekly, Adam Pastor MD, 50,000 Units at 11/02/17718 ??? glucagon injection 1 mg, 1 mg, intramuscular, Q30 Min PRN, Jason Shore Jr., OWNER/PHOTOGRAPHER ??? ipratropium-albuterol (DUO-NEB) 0.5-2.5 mg/3 mL nebulizer solution 3 mL, 3 mL, nebulization, Q4H PRN (RT), Rachna Burt MD ??? lidocaine (LIDODERM) 5 % patch 1 patch, 1 patch, transdermal, Daily, Jason Shore Jr., OWNER/PHOTOGRAPHER, 1patch at 11/02/17714 ??? metoprolol (LOPRESSOR) tablet 12.5 mg, 12.5 mg, oral, BID, Rachna Burt MD, 12.5 mg at 11/02/17715 ??? miconazole 2 % powder, , topical, BID, Rachna Burt MD ??? ondansetron (ZOFRAN) tablet 4 mg, 4 mg, oral, Q4H PRN, Rachna Burt MD, 4 mg at 11/02/17724 ??? oxyCODONE (ROXICODONE) tablet 10 mg, 10 mg, oral, Q4H PRN, Rachna Burt MD, 10 mg at 11/02/17717 ??? oxyCODONE (ROXICODONE) tablet 5 mg, 5 mg, oral, Q4H PRN, Rachna Burt MD, 5 mg at 11/01/17 1313 ??? pantoprazole DR (PROTONIX) extended release tablet 40 mg, 40 mg, oral, Daily, Rachna Burt MD, 40 mg at 11/02/17717 ??? polyethylene glycol (MIRALAX) packet 17 g, 17 g, oral, BID PRN, Jason Shore Jr., OWNER/PHOTOGRAPHER, 17 g at 10/29/17 0842 ??? senna (SENOKOT) tablet 1 tablet, 1 tablet, oral, Daily, Rachna Brut MD, 1 tablet at 11/02/17717 ??? tamsulosin (FLOMAX) extended release capsule 0.4 mg, 0.4 mg, oral, Nightly, Rachna Burt MD, 0.4 mg at 11/01/172149 ??? zinc sulfate (ZINCATE) capsule 220 mg, 220 mg, oral, Daily, Rachna Burt MD, 220 mg at 11/02/17717 ??? 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 PM: transfers WC-->standing frame with total assist x2 via garrett lift, balloon batting w/ SARAH UEs in standing frame with several short rest breaks as needed. Pt's transfers and bed mobility remain unchanged from prior sessions. Pt's endurance and speed with WC mobility is improving. Pt's standing endurance and postural control is improving with standing in // bars but still requires max assist x2 to stand upright. Pt less SOB with exertion and is off O2 via NC. Pt able to assist more with slide board transfer today. Pt did well with standing frame while balloon batting, and is overall tolerating sessions well w/ less fatigue. Pt to benefit from continued transfer training and standing endurance tasks, and may benefit from Lite Gait training on tile floor to initiate steppi ng/walking tasks. Pt reports increased pain today with muscle spasms in low back. RN and MD notified. Pt is progressing towards goals and highly motivated to participate with PT. Continue per plan ofcare. OT Functional Mobility: Pt. completes supine to sit max assist and 2 person DEP for sit to stand with manual stand aid. Pt able to assist slightly more when pulling self up in manual sit to stand this date OT Self Care: DEP to minimal assist for self care with 1 to 2 people. Pt using rolling shower chairwith sarah supports and manual stand aid 2 person with LE dressing. Pt demonstrates general decreasedbalance, endurance, strength and sensation. Pt will benefit from continued skilled OT to promote IND toward goals. Pt. vomiting this AM and RN notified. OT Cognition: Appears WNL OT Communication: decreased vocal strength at times. TOWING PILOT Cognition: WFL TOWING PILOT Communication: WFL TOWING PILOT Swallowing: WFL: Regular consistency with thin liquids, tolerating diet well Patient/caregiver goals:Patient and Family Goals: to return home Pre hospital Living environment: Home Setting: Split level home Prehospital Lives With: Spouse;Adult children REVIEW OF DATA: No results found for this or any previous visit (from the past 24 hour(s)). REVIEW OF IMAGING: Imaging (Last 96 hours) 10/22 1037 XR Chest 1 Vw REHABILITATION DIAGNOSIS: Impairment Code Group: Debility REHAB PLAN OF CARE: The Interdisciplinary Team will work collaboratively to address the patient problems and goals to be managed by the Individualized Interdisciplinary Plan of Care. Rehabilitation Precautions/Restrictions: Falls;MRSA colonization;Isolation Multi-Disciplinary Problems Active Problems Problem: Health Behavior: Start Date: 10/24/17 Goal Start Date End Date Understanding of discharge needs will improve 10/24/17 -- Goal Intervention Frequency Start Date End Date Discuss information regarding discharge instructions -- 10/24/17 -- Goal Intervention Frequency Start Date End Date Identify discharge learning needs (meds, wound care, etc) -- 10/24/17 -- Goal Intervention Frequency Start Date End Date Collaborate with case management -- 10/24/17 -- Intervention Details: (Coordinate discharge planning if the patient needs post- hospital services onphysician order or complex needs related to functional status, cognitive ability, or social supportsystem) Goal Intervention Frequency Start Date End Date Arrange for needed discharge resources and transportation as appropriate -- 10/24/17 -- Goal Intervention Frequency Start Date End Date Identify discharge barriers -- 10/24/17 -- Goal Intervention Frequency Start Date End Date Collaborate with spanish interpreter -- 10/24/17 -- Problem: Lack of Knowledge: Start Date: 10/25/17 Goal Start Date End Date Ability to state ways to decrease the risk of falls will improve 10/25/17 -- Goal Intervention Frequency Start Date End Date Teach fall prevention measures -- 10/25/17 -- Goal Intervention Frequency Start Date End Date Teach information regarding appropriate environmental changes -- 10/25/17 -- Problem: Safety: Start Date: 10/25/17 Goal Start Date End Date Will remain free from falls 10/25/17 -- Goal Intervention Frequency Start Date End Date Assess risk factors for falls -- 10/25/17 -- Intervention Details: (including medications) Goal Intervention Frequency Start Date End Date Implement fall prevention measures -- 10/25/17 -- Goal Intervention Frequency Start Date End Date Collaborate with other disciplines -- 10/25/17 -- Intervention Details: (PT, OT, Pharmacy, MD, etc.) Goal Start Date End Date Will remain free from injury from falls 10/25/17 -- Goal Intervention Frequency Start Date End Date Provide safe environment for conduction of activities of daily living -- 10/25/17 -- Goal Start Date End Date Will remain free from falls and injury in home environment 10/25/17 -- Goal Intervention Frequency Start Date End Date Assess environmental risk factors -- 10/25/17 -- Problem: Activity: Start Date: 10/25/17 Goal Start Date End Date Mobility will improve 10/25/17 -- Goal Intervention Frequency Start Date End Date Encourage mobilization to extent of ability -- 10/25/17 -- Goal Intervention Frequency Start Date End Date Perform repositioning -- 10/25/17 -- Goal Intervention Frequency Start Date End Date Collaborate with physical therapy -- 10/25/17 -- Problem: Lack of Knowledge: Start Date: 10/25/17 Goal Start Date End Date Understanding of ways to prevent future skin breakdown will improve 10/25/17 -- Goal Intervention Frequency Start Date End Date Discuss precautions to protect skin integrity -- 10/25/17 -- Goal Intervention Frequency Start Date End Date Discuss treatment plan for related conditions -- 10/25/17 -- Goal Start Date End Date Ability to identify appropriate dietary choices will improve 10/25/17 -- Goal Intervention Frequency Start Date End Date Discuss dietary adjustments -- 10/25/17 -- Problem: Nutritional: Start Date: 10/25/17 Goal Start Date End Date Dietary intake will improve 10/25/17 -- Goal Intervention Frequency Start Date End Date Assess nutritional status -- 10/25/17 -- Goal Intervention Frequency Start Date End Date Collaborate with dietitian -- 10/25/17 -- Goal Intervention Frequency Start Date End Date Assist appropriate dietary choices -- 10/25/17 -- Goal Start Date End Date Ability to maintain a balanced intake and output will improve 10/25/17 -- Goal Intervention Frequency Start Date End Date Assess intake and output -- 10/25/17 -- Problem: Skin Integrity: Start Date: 10/25/17 Goal Start Date End Date Risk for impaired skin integrity will decrease 10/25/17 -- Goal Intervention Frequency Start Date End Date Identify risk factors for impaired skin integrity and/or pressure injuries -- 10/25/17 -- Goal Intervention Frequency Start Date End Date Monitor medication effects -- 10/25/17 -- Goal Intervention Frequency Start Date End Date Implement precautions to protect skin integrity -- 10/25/17 -- Goal Intervention Frequency Start Date End Date Use moisturizing agent to dry skin -- 10/25/17 -- Goal Intervention Frequency Start Date End Date Perform cleansing of skin when soiled -- 10/25/17 -- Goal Intervention Frequency Start Date End Date Provide pressure-relief bed or mattress -- 10/25/17 -- Goal Start Date End Date Ability to demonstrate warm and dry skin will improve 10/25/17 -- Goal Intervention Frequency Start Date End Date Monitor skin integrity, appearance and/or temperature -- 10/25/17 -- Goal Start Date End Date Circulation will improve to fullest extent possible 10/25/17 -- Goal Intervention Frequency Start Date End Date Assess circulation, sensation and/or motion of extremity -- 10/25/17 -- Problem: Bladder/Voiding Start Date: 10/25/17 Goal Start Date End Date LTG - Patient will achieve acceptable level of continence 10/25/17 -- Goal Start Date End Date STG - Patient demonstrates no accidents 10/25/17 -- Goal Intervention Frequency Start Date End Date Encourage toileting PRN 10/25/17 -- Goal Intervention Frequency Start Date End Date Educate patient about medications PRN 10/25/17 -- Problem: Bowel Elimination Start Date: 10/25/17 Goal Start Date End Date LTG - Patient will have regular and routine bowel evacuation 10/25/17 -- Goal Start Date End Date LTG - Patient will complete bowel elimination 10/25/17 -- Goal Start Date End Date STG - Patient maintains skin integrity 10/25/17 -- Goal Intervention Frequency Start Date End Date Educate patient about ostomy appliances, correct application, protection of skin PRN 10/25/17 -- Goal Start Date End Date STG - Patient will verbalize signs and symptoms of constipation and how to prevent/alleviate 10/25/17 -- Goal Intervention Frequency Start Date End Date Encourage use of aids (stool softener, laxative, suppository) PRN 10/25/17 -- Goal Intervention Frequency Start Date End Date Encourage adjustment and monitoring of fluid intake PRN 10/25/17 -- Goal Intervention Frequency Start Date End Date Teach patient about symptoms of impaction PRN 10/25/17 -- Goal Intervention Frequency Start Date End Date Educate patient about effect of fluid intake on bowel movement PRN 10/25/17 -- Goal Intervention Frequency Start Date End Date Educate patient about adequate fluid intake PRN 10/25/17 -- Goal Start Date End Date STG - Patient will be continent of stool 10/25/17 -- Goal Start Date End Date STG - Patient verbalizes knowledge about relationship between diet, fluid intake, activity and medication on constipation 10/25/17 -- Goal Intervention Frequency Start Date End Date Educate patient about medications PRN 10/25/17 -- Goal Intervention Frequency Start Date End Date Educate patient about adequate fluid intake PRN 10/25/17 -- Problem: Breathing Start Date: 10/25/17 Goal Start Date End Date STG - Respiratory rate and effort will be within normal limits for the patient 10/25/17 -- Goal Intervention Frequency Start Date End Date Provide oxygen therapy as ordered PRN 10/25/17 -- Goal Intervention Frequency Start Date End Date Monitor oygen saturation PRN 10/25/17 -- Goal Intervention Frequency Start Date End Date Encourage incentive spirometer x 10 each hour while awake PRN 10/25/17 -- Goal Intervention Frequency Start Date End Date Encourage/perform oral hygiene as appropriate PRN 10/25/17 -- Goal Intervention Frequency Start Date End Date Collaborate with respiratory therapy to administer medications/treatments PRN 10/25/17 -- Goal Start Date End Date STG - Patient/family will be able to verbalize oxygen safety precautions 10/25/17 -- Goal Intervention Frequency Start Date End Date Educate patient about oxygen PRN 10/25/17 -- Goal Start Date End Date STG - Patient will utilize incentive spirometer 10/25/17 -- Goal Intervention Frequency Start Date End Date Encourage incentive spirometer x 10 each hour while awake PRN 10/25/17 -- Goal Intervention Frequency Start Date End Date Encourage use of incentive spirometer PRN 10/25/17 -- Goal Start Date End Date STG - Patient performs or directs assisted coughing 10/25/17 -- Goal Intervention Frequency Start Date End Date Instruct on coughing and deep breathing PRN 10/25/17 -- Goal Intervention Frequency Start Date End Date Educate patient about forced cough PRN 10/25/17 -- Goal Intervention Frequency Start Date End Date Teach patient about assistive cough PRN 10/25/17 -- Problem: Pain Start Date: 10/25/17 Goal Start Date End Date STG - Pain is manageable through therapies 10/25/17 -- Goal Start Date End Date STG - Patient will verbalize an acceptable level of pain 10/25/17 -- Problem: OT Misc Start Date: 10/25/17 Goal Start Date End Date [facility] [place] 10/25/17 -- Goal Details: Pt to dress modified IND Goal Start Date End Date [facility] [place] 2 10/25/17 -- Goal Details: Pt to groom modified IND Goal Start Date End Date [facility] [place] 3 10/25/17 -- Goal Details: Pt to bathe with transfer modified IND Goal Start Date End Date [facility] [place] 4 10/25/17 -- Goal Details: Pt to toilet with transfer modified IND Goal Start Date End Date [facility] [place] 5 10/25/17 -- Goal Details: Pt to complete UE HEP with IND to promote IND with self care and functional transfers Problem: Cognitive: Start Date: 10/25/17 Goal Start Date End Date [facility] 1 10/25/17 -- Goal Details: Patient will execute multiple elements of a task with supervision Goal Start Date End Date [facility] 2 10/25/17 -- Goal Details: Patient will increase problem solving to complete tasks at 90% or with supervision Problem: Physical Regulation: Start Date: 10/25/17 Goal Start Date End Date [facility] 3 10/25/17 -- Goal Details: Patient will increase general strength/coordination through various exercises with supervision until disch Problem: Respiratory: Start Date: 10/25/17 Goal Start Date End Date [facility] 4 10/25/17 -- Goal Details: Patient will maintain/increase SPO2 by 1% in at least one session prior to disch Goal Start Date End Date [facility] 5 10/25/17 -- Goal Details: Patient will increase pulmonary function through various exercises with supervision until disch Problem[facility] Start [facility]: 10/25/17 Goal Start Date End Date [facility] [place] 1 10/25/17 -- Goal Details: Pt will roll SARAH and supine<-->sit EOB with supervision and bedrails as needed.Pt will sit<-->stand with minimum assist and appropriate assistive device. Pt will transfer bed<-->wheelchair/chair with minimum assist and appropriate assistive device. Goal Start Date End Date [facility] [place] 2 10/25/17 -- Goal Details: Pt will ambulate 150' w/ minimum assist and appropriate assistive device. Pt will ambulate up/down 4 stairs with mod assist and SARAH rails. Goal Start Date End Date [facility] [place] 3 10/25/17 -- Goal Details: Pt will propel WC 150' with supervision and extra time. Goal Start Date End Date [facility] [place] 4 10/25/17 -- Goal Details: Pt will complete SARAH LE HEP x15 reps with supervision. Goal Start Date End Date [facility] [place] 5 10/25/17 -- Goal Details: Pt and/or family will verbalize and demonstrate understanding of pt's safety and mobility needs upon discharge. * Александр Espino Jr., MD - 11/02/2017 8:01 AM CDT Pulmonary / Critical Care Daily Progress Chief Complaint/HPI/Hospital Course: Good night. Tolerating BiPAP. With physical therapy. Less edema on exam. Up in chair eating breakfast. Normal pCO2. May not need positive pressure ventilation at night at home after all. Review of Systems: Review of Systems Constitutional: Negative for chills, fatigue and fever. HENT: Negative for congestion, sore throat and trouble swallowing. Respiratory: Negative for cough, chest tightness, shortness of breath and wheezing. Cardiovascular: Negative for chest pain and leg swelling. Gastrointestinal: Negative for diarrhea, nausea and vomiting. Genitourinary: Negative for dysuria and hematuria. Neurological: Positive for weakness. Negative for dizziness and headaches. Psychiatric/Behavioral: Negative for behavioral problems and sleep disturbance. Temp: [36.7 ??C (98.1 ??F)] 36.7 ??C (98.1 ??F) Pulse: [75-85] 78 Resp: [18] 18 BP: (101-118)/(56-76) 118/56 FiO2 (%): [35 %] 35 % I/O last 2 completed shifts: In: 360 [P.O.:360] Out: 475 [Urine:475] No intake/output data recorded. Oxygen / Pulmonary Events Vent settings for last 24 hours: FiO2 (%): [35 %] 35 % Oxygen Therapy SpO2: 97 % Pulse Oximetry Type: Intermittent Patient Activity: At rest O2 Therapy: None (Room air) O2 Del Method: CPAP/Bi-PAP mask FiO2 (%): 35 % O2 Flow Rate (L/min): 2 L/min] Physical exam: Physical Exam Constitutional: He is oriented to person, place, and time. He appears well- developed. No distress. HENT: Head: Normocephalic. Mouth/Throat: Oropharynx is clear and moist. Eyes: Pupils are equal, round, and reactive to light. Right eye exhibits no discharge. Left eye exhibits no discharge. Cardiovascular: Regular rhythm and normal heart sounds. Tachycardia present. Pulmonary/Chest: Effort normal and breath sounds normal. He has no wheezes. He has no rales. Abdominal: There is no rebound and no guarding. Peg Musculoskeletal: He exhibits edema. Neurological: He is alert and oriented to person, place, and time. Psychiatric: He has a normal mood and affect. Current Facility-Administered Medications: ??? acetaminophen (TYLENOL) tablet 650 mg, 650 mg, oral, Q4H PRN, Rachna Burt MD, 650 mg at 11/01/17 1853 ??? albuterol (PROVENTIL,VENTOLIN) 2.5 mg/0.5 mL nebulizer solution 5 mg, 5 mg, nebulization, Q6H PRN, Rachna Burt MD ??? amiodarone (PACERONE) tablet 200 mg, 200 mg, oral, BID, Rachna Burt MD, 200 mg at ??? apixaban (ELIQUIS) tablet 5 mg, 5 mg, oral, BID, Rachna Burt MD, 5 mg at 11/02/17 0719 ??? ascorbic acid (VITAMIN C) tablet/chewable tablet 500 mg, 500 mg, oral, BID, Rachna Burt MD, 500 mg at 11/02/1717 ??? aspirin enteric coated tablet 81 mg, 81 mg, oral, Daily, Rachna Burt MD, 81 mg at ??? atorvastatin (LIPITOR) tablet 20 mg, 20 mg, oral, Daily, Rachna Burt MD, 20 mg at 8 ??? baclofen (LIORESAL) tablet 5 mg, 5 mg, oral, Q6H PRN, Rachna Burt MD, 5 mg at 11/02/17 0717 ??? bisacodyl (DULCOLAX) suppository 10 mg, 10 mg, rectal, Daily PRN, Jason Shore Jr., NP, 10 mg at 10/29/17 2139 ??? bisacodyl EC (DULCOLAX EC) tablet 5 mg, 5 mg, oral, BID PRN, Jason Shore Jr., NP, 5 mg at 10/29/17 1329 ??? budesonide-formoterol (SYMBICORT) 80-4.5 mcg/actuation inhaler 1 puff, 1 puff, inhalation, BID (RT), Rachna Burt MD, 1 puff at 11/02/17703 ??? bumetanide (BUMEX) tablet 0.5 mg, 0.5 mg, oral, Daily, Александр Espino Jr., MD, 0.5 mg at 11/02/17717 ??? chlorhexidine (PERIDEX) 0.12 % solution 5 mL, 5 mL, mouth/throat, BID, Rachna Burt MD, 5 mL at 11/02/17724 ??? collagenase 250 unit/gram ointment, , topical, Daily, Rachna Burt MD ??? dextrose (GLUTOSE) 40 % gel 15 g, 15 g, oral, Q15 Min PRN, Jason Shore Jr., OWNER/PHOTOGRAPHER ??? dextrose 50% (concentrated solution) CONCENTRATED solution 25 g, 25 g, intravenous, Q15 Min PRN, Jason Shore Jr., OWNER/PHOTOGRAPHER ??? diphenhydrAMINE (BENADRYL) tab/cap 25 mg, 25 mg, oral, TID PRN, Rachna Burt MD ??? docusate sodium (COLACE) capsule 100 mg, 100 mg, oral, BID, Jason Shore Jr., OWNER/PHOTOGRAPHER, 100 mg at 11/02/17718 ??? ergocalciferol (VITAMIN D) capsule 50,000 Units, 50,000 Units, oral, Weekly, Adam Pastor MD, 50,000 Units at 11/02/17718 ??? glucagon injection 1 mg, 1 mg, intramuscular, Q30 Min PRN, Jason Shore Jr., BELLA ??? ipratropium-albuterol (DUO-NEB) 0.5-2.5 mg/3 mL nebulizer solution 3 mL, 3 mL, nebulization, Q4H PRN (RT), Rachna Burt MD ??? lidocaine (LIDODERM) 5 % patch 1 patch, 1 patch, transdermal, Daily, Jason Shore Jr. OWNER/PHOTOGRAPHER, 1patch at 11/02/17714 ??? metoprolol (LOPRESSOR) tablet 12.5 mg, 12.5 mg, oral, BID, Rachna Burt MD, 12.5 mg at 11/02/1716 ??? miconazole 2 % powder, , topical, BID, Rachna Burt MD ??? ondansetron (ZOFRAN) tablet 4 mg, 4 mg, oral, Q4H PRN, Rachna Burt MD, 4 mg at 11/02/17 0725 ??? oxyCODONE (ROXICODONE) tablet 10 mg, 10 mg, oral, Q4H PRN, Rachna Burt MD, 10 mg at 11/02/17717 ??? oxyCODONE (ROXICODONE) tablet 5 mg, 5 mg, oral, Q4H PRN, Rachna Burt MD, 5 mg at 11/01/17 1313 ??? pantoprazole DR (PROTONIX) extended release tablet 40 mg, 40 mg, oral, Daily, Rachna Burt MD, 40 mg at 11/02/17717 ??? polyethylene glycol (MIRALAX) packet 17 g, 17 g, oral, BID PRN, Jason Shore Jr., OWNER/PHOTOGRAPHER, 17 g at 10/29/17 0842 ??? senna (SENOKOT) tablet 1 tablet, 1 tablet, oral, Daily, Rachna Burt MD, 1 tablet at 11/02/17717 ??? tamsulosin (FLOMAX) extended release capsule 0.4 mg, 0.4 mg, oral, Nightly, Rachna Burt MD, 0.4 mg at 11/01/172149 ??? zinc sulfate (ZINCATE) capsule 220 mg, 220 mg, oral, Daily, Rachna Burt MD, 220 mg at 11/02/17717 ??? zolpidem (AMBIEN) tablet 5 mg, 5 mg, oral, Nightly PRN, Rachna Burt MD, 5 mg at 11/01/172149 Labs: Labs reviewed: Mild hyponatremia. Hypercapnia has resolved No results found for this or any previous visit (from the past 24 hour(s)). Imaging: Chest x-ray October 30 improved Diagnostics: Ejection fraction 65%. No vegetations. Mild left atrial enlargement Microbiology: Positive sputum culture for stenotrophomonas on October 13 Assessment & Plan: Assessment/Plan Hyponatremia Assessment & Plan Hyponatremia. Suspect dilutional. Monitor renal function with diuresis. Less edema on exam Pneumonia Assessment & Plan Completed treatment for pneumonia, empyema prior to transfer to [facility]. Finished Bactrim for stenotrophomonas pneumonia here. Two-view chest x-ray much better Diskitis Assessment & Plan Completed debridement, prolonged antibiotic therapy for an L1 diskitis. Has had some back pain. Hypercapnic respiratory failure ([facility]) Assessment & Plan Successfully decannulated. FiO2 to maintain a saturation of 90%. Continue BiPAP at night. Evaluate for home oxygen closer to discharge. Normal pCO2. May very well not need BiPAP at home COPD (chronic obstructive pulmonary disease) ([facility]) Assessment & Plan Pulmonary function testing when stable. Continue inhaled bronchodilator therapy. Former smoker Assessment & Plan May meet criteria for lung cancer screen Chronic atrial fibrillation ([facility]) Assessment & Plan Hemodynamically stable. Monitor for bleeding. Continue amiodarone, aspirin, Lipitor, metoprolol, apixaban For today: Off Bactrim for stenotrophomonas pneumonia. Diuretic dose adjusted. Hyponatremia is stable. I suspect dilutional based on physical exam, increased total body water. He is not on a thiazide, SSRI etc. Less edema on exam. Blood gas noted. Normal pCO2. Continue BiPAPat night for now but probably will not qualify at home. Evaluate for home oxygen closer to discharge. Comfortable this morning eating breakfast on room air. Prophylaxis: DVT ppx: Long-term oral anticoagulation At Code Status: Full Code. Александр Espino Jr., MD 11/02/2017 8:03 AM This note was transcribed using Speech Recognition software. As a result, there may be grammatical and spelling errors that are unintended. Every attempt is made to have correct dictation. If there are any questions or major errors, please contact me * Haley Jonhson, RD - 11/01/2017 2:20 PM CDT Nutrition Follow-up Progress Note Encounter Date: 11/01/17 2:20 PM Nutrition Progress Summary: Patient is a 66 y.o. male. Admit Dx: ACUTE RESPIRATORY FAILURE, UNSP W HYPOXIA OR HYPERCAPNIA. Admitted on 10/24/2017. Patient's intake is adequate. Impression: Pt states appetite & intake good, on regular diet. States drinks the Glucerna some of the time. Plan: Will continue Glucerna as desired by pt. Follow re: nutritional needs. Objective Dietary Orders Start Ordered 10/27/17 1422 Adult Diet Regular Diet effective now Question: ([facility]) Diet type Answer: Regular 10/27/17 1421 10/25/17 1300 Oral Nutrition Supplements Select Supplement: Glucerna Shake - Chocolate 3 times daily Question: Select Supplement: Answer: Glucerna Shake - Chocolate 10/25/17 1200 Anthropometrics Weight: 93 kg (205 lb 0.4 oz) Admission Weight : 94.3 kg Weight Change: -1.34 kg (-2.97 lbs) IBW/kg (Calculated) : 78 kg Height: 180.3 cm (5' 11 ) Weight in (lb) to have BMI = 25: 178.9 BMI (Calculated): 28.6 Intake/Output Summary (Last 24 hours) at 11/01/17 1420 Last data filed at 11/01/17 1200 Gross per 24 hour Intake 360 ml Output 675 ml Net -315 ml Medications and Lab Review: Scheduled Meds: amiodarone 200 mg oral BID apixaban 5 mg oral BID ascorbic acid 500 mg oral BID aspirin 81 mg oral Daily atorvastatin 20 mg oral Daily budesonide-formoterol 1 puff inhalation BID (RT) bumetanide 0.5 mg oral Daily chlorhexidine 5 mL mouth/throat BID collagenase topical Daily docusate sodium 100 mg oral BID ergocalciferol 50,000 Units oral Weekly lidocaine 1 patch transdermal Daily metoprolol 12.5 mg oral BID miconazole topical BID pantoprazole DR 40 mg oral Daily senna 1 tablet oral Daily tamsulosin 0.4 mg oral Nightly zinc sulfate 220 mg oral Daily Continuous Infusions: PRN Meds: ??? acetaminophen ??? albuterol ??? baclofen ??? bisacodyl ??? bisacodyl EC ??? dextrose ??? dextrose 50% ??? diphenhydrAMINE ??? glucagon ??? ipratropium-albuterol ??? ondansetron ??? oxyCODONE ??? oxyCODONE ??? polyethylene glycol ??? zolpidem Sodium Date Value Ref Range Status 10/31/2017 134 (L) 135 - 145 mmol/L Final Potassium Date Value Ref Range Status 10/31/2017 4.3 3.3 - 4.9 mmol/L Final Comment: Moderately Hemolyzed Specimen BUN Date Value Ref Range Status 10/31/2017 15 8 - 25 mg/dL Final Creatinine Date Value Ref Range Status 10/31/2017 0.73 (L) 0.80 - 1.30 mg/dL Final Phosphorus, pl Date Value Ref Range Status 10/30/2017 3.1 2.3 - 4.5 mg/dL Final Albumin Date Value Ref Range Status 10/30/2017 3.2 (L) 3.5 - 5.0 g/dL Final Calcium Date Value Ref Range Status 10/31/2017 8.3 (L) 8.5 - 10.3 mg/dL Final ALT Date Value Ref Range Status 10/30/2017 47 7 - 55 Units/L Final AST Date Value Ref Range Status 10/30/2017 27 10 - 50 Units/L Final Alk phos Date Value Ref Range Status 10/30/2017 120 40 - 130 Units/L Final Lab Results Component Value Date HGBA1C 4.7 09/27/2017 Nursing Assessment: Last BM Date: 10/31/17 Bowel Sounds (All Quadrants): Active Rex Scale Score: 14 Skin Integrity: Surgical incision, Abrasion, Tear Type of Wound (LDA): Wound Current Nutrition Issues: Nutrition Diagnosis 1: Increased nutrient needs (protein) Related to: Wounds Evidenced by: Physicalfinding Nutrition Plan: Interventions: Encouragement, Medical food supplement Monitoring and Evaluation: PO intake, Supplement tolerance Goals: Tolerance of medical food supplement by next assessment, Oral intake to meet 75% estimated nutritional needs by next assessment Haley Johnson RD, LD * Rachna Burt MD - 11/01/2017 10:07 AM CDT [facility] Rehabilitation Medicine Progress Note NAME: José Miguel Jang AGE: 66 y.o. : 1950 Date of Note: 11/01/2017 REHABILITATION PROGRESS NOTE Physician Physical Assessment/ Progress Note Rehab Impairment Code: Impairment Code Group: Debility Date of onset: Date of Onset: 07/29/17 Date of admission: 10/24/2017 Subjective: Slept well. Seen with OT in the shower this morning. SBA. Trach stoma healing. Tolerating BiPAP. Onbactrim for stenotrophomonas maltophilia pna. Dr. Espino following. PEG in place. Not being used. We will remove as he continues to improve. Stronger over all. Still endurance significantly compromised. Max assist with slide board transfer. Generalized weakness. Back incision c/d/i. Wound care following. Santyl to an area of partial dehiscence. No erythema. Serous drainage. Slowly healing. Encouraged po intake. Continue supplements. RN following. Continent of bowel and bladder. On eliquis. Anemia, monitor. Glucose overall controlled. IM following. No fever chills, chest pain , or acute sob. Fa niki supportive. PHYSICAL EXAMINATION: Vitals: 10/31/17 2157 11/01/17 0445 11/01/17 0703 11/01/17 0911 BP: 121/76 99/60 101/62 BP Location: Right arm Patient Position: Lying Pulse: 76 78 85 Resp: 18 Temp: 36.3 ??C (97.3 ??F) TempSrc: Axillary SpO2: 100% 97% Weight: Height: Physical exam:?? GENERAL: Pleasant and in no acute distress MENTAL STATUS: ??Awake, alert and oriented to person, place and time with normal attention span, insight, and concentration. ??Naming and repetition are normal. ??Remote and recent memory intact. ??Fund of knowledge is appropriate. SPEECH: ??Fluent, non-dysarthric, no aphasia noted CRANIAL NERVES: Visual herrera are full on confrontation. ??Pupils are equally round and reactive tolight??bilaterally. Extraocular movements are??full and intact. No nystagmus is noted. ??There is no loss of sensation over the face. ??There is no facial weakness or asymmetry. ??Hearing intact bilaterally to finger rubbing. Uvula and palate elevate in the midline. Shoulder shrug is symmetric. ??Tongue protrudes in the midline. MOTOR: Generalized weakness. Moves all extremities. BL LE: hip flexors 3/5, knee extension and flexion 4/5, BL DF 3/5 Bulk and tone are nomal. ??No abnormal movements are noted. REFLEXES: 1+ and symmetric in bilateral upper extremities. SENSORY: Intact to light??touch in all four extremities.?No extinction with bilateral stimulation. COORDINATION: ??Normal GAIT AND STATION: Not tested, per therapy notes CARDIOVASCULAR: Regular rate and rhythm. ??No murmurs, rubs, gallops or carotid bruits. LUNGS: Clear to auscultation bilaterally. No wheezes, rhonchi or rales. ABDOMEN: ??Soft and non-tender.?Normal bowel sounds were noted. EXTREMITIES: ??No edema, back incision dehisced IMPRESSION: Rehab Diagnosis: Respiratory Failure Impairment Code Group: Debility Physician Problem List/ Comorbidities: Active Problems: Chronic atrial fibrillation ([facility]) Former smoker COPD (chronic obstructive pulmonary disease) ([facility]) Hypercapnic respiratory failure ([facility]) Diskitis Pneumonia Hyponatremia MEDICAL PLAN: 1. Debility: ??Complicated recent medical course. ??Comprehensive inpatient rehabilitation, family training, structured environment. 2. 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 ??F/u with surgery team. ??Complete course of bactrim. ??Chest tube out. Wound care following back incision. 3. Respiratory failure: ??S/p trach, decannulated. ??Aggressive pulm toilet. ??BDs/inhaled steroids. ??Dr Espino following. NIPPV as required. ??H/o COPD and prior tobacco abuse. 4. Dysphagia: ??S/p PEG. ??TOWING PILOT, RD f/u. ??Aspiration precautions 5. Dm2: ??A1c 4.7%: prudent diet, diabetic education. ??Metformin, SSI, accuchecks. ??RD eval. 6. CAD: ??ASA, statin, BBlocker 7. HTN: ??Metoprolol, bumex 8. Afib: ??Eliquis, amio, metoprolol 9. Urinary retention: ??Flomax, monitor UOP 10. Dyslipid; ??Statin 11. Anemia: ??ACD and ABLA. ??Monitor cbc, transfuse for hgb under 7 or if symptomatic. 12. Nutrition: rd consult. ?? * DVT prophylaxsis: eliquis * GI prophylaxsis: ppi CODE STATUS: Full Code ALLERGY: Allergies Allergen Reactions ??? Penicillins Current Facility-Administered Medications: ??? acetaminophen (TYLENOL) tablet 650 mg, 650 mg, oral, Q4H PRN, Rachna Burt MD, 650 mg at 11/01/17704 ??? albuterol (PROVENTIL,VENTOLIN) 2.5 mg/0.5 mL nebulizer solution 5 mg, 5 mg, nebulization, Q6H PRN, Rachna Burt MD ??? amiodarone (PACERONE) tablet 200 mg, 200 mg, oral, BID, Rachna Burt MD, 200 mg at ??? apixaban (ELIQUIS) tablet 5 mg, 5 mg, oral, BID, Rachna Burt MD, 5 mg at 11/01/17910 ??? ascorbic acid (VITAMIN C) tablet/chewable tablet 500 mg, 500 mg, oral, BID, Rachna Burt MD, 500 mg at 11/01/17910 ??? aspirin enteric coated tablet 81 mg, 81 mg, oral, Daily, Rachna Burt MD, 81 mg at ??? atorvastatin (LIPITOR) tablet 20 mg, 20 mg, oral, Daily, Rachna Burt MD, 20 mg at ??? baclofen (LIORESAL) tablet 5 mg, 5 mg, oral, Q6H PRN, Rachna Burt MD, 5 mg at 11/01/17704 ??? bisacodyl (DULCOLAX) suppository 10 mg, 10 mg, rectal, Daily PRN, Jason Shore Jr., NP, 10 mg at 10/29/172138 ??? bisacodyl EC (DULCOLAX EC) tablet 5 mg, 5 mg, oral, BID PRN, Jason Shore Jr., NP, 5 mg at 10/29/17 1329 ??? budesonide-formoterol (SYMBICORT) 80-4.5 mcg/actuation inhaler 1 puff, 1 puff, inhalation, BID (RT), Rachna Burt MD, 1 puff at 11/01/17 0703 ??? bumetanide (BUMEX) tablet 0.5 mg, 0.5 mg, oral, Daily, Александр Espino Jr., MD, 0.5 mg at 11/01/17 0911 ??? chlorhexidine (PERIDEX) 0.12 % solution 5 mL, 5 mL, mouth/throat, BID, Rachna Burt MD, 5 mL at 10/31/17 2200 ??? collagenase 250 unit/gram ointment, , topical, Daily, Rachna Burt MD ??? dextrose (GLUTOSE) 40 % gel 15 g, 15 g, oral, Q15 Min PRN, Jason Shore Jr., OWNER/PHOTOGRAPHER ??? dextrose 50% (concentrated solution) CONCENTRATED solution 25 g, 25 g, intravenous, Q15 Min PRN, Jason Shore Jr., OWNER/PHOTOGRAPHER ??? diphenhydrAMINE (BENADRYL) tab/cap 25 mg, 25 mg, oral, TID PRN, Rachna Burt MD ??? docusate sodium (COLACE) capsule 100 mg, 100 mg, oral, BID, Jason Shore Jr. OWNER/PHOTOGRAPHER, 100 mg at 11/01/1713 ??? ergocalciferol (VITAMIN D) capsule 50,000 Units, 50,000 Units, oral, Weekly, Adam Pastor MD, 50,000 Units at 10/26/17 0802 ??? glucagon injection 1 mg, 1 mg, intramuscular, Q30 Min PRN, Jason Shore Jr., BELLA ??? ipratropium-albuterol (DUO-NEB) 0.5-2.5 mg/3 mL nebulizer solution 3 mL, 3 mL, nebulization, Q4H PRN (RT), Rachna Burt MD ??? lidocaine (LIDODERM) 5 % patch 1 patch, 1 patch, transdermal, Daily, Jason Shore Jr., BELLA, 1patch at 11/01/17912 ??? metoprolol (LOPRESSOR) tablet 12.5 mg, 12.5 mg, oral, BID, Rachna Burt MD, 12.5 mg at 11/01/17910 ??? miconazole 2 % powder, , topical, BID, Rachna Burt MD ??? ondansetron (ZOFRAN) tablet 4 mg, 4 mg, oral, Q4H PRN, Rachna Burt MD ??? oxyCODONE (ROXICODONE) tablet 10 mg, 10 mg, oral, Q4H PRN, Rachna Burt MD ??? oxyCODONE (ROXICODONE) tablet 5 mg, 5 mg, oral, Q4H PRN, Rachna Burt MD, 5 mg at 10/31/17 1516 ??? pantoprazole DR (PROTONIX) extended release tablet 40 mg, 40 mg, oral, Daily, Rachna Burt MD, 40 mg at 11/01/17910 ??? polyethylene glycol (MIRALAX) packet 17 g, 17 g, oral, BID PRN, Jason Shore Jr., OWNER/PHOTOGRAPHER, 17 g at 10/29/17 0842 ??? senna (SENOKOT) tablet 1 tablet, 1 tablet, oral, Daily, Rachna Burt MD, 1 tablet at 11/01/17910 ??? tamsulosin (FLOMAX) extended release capsule 0.4 mg, 0.4 mg, oral, Nightly, Rachna Burt MD, 0.4 mg at 10/31/172157 ??? zinc sulfate (ZINCATE) capsule 220 mg, 220 mg, oral, Daily, Rachna Burt MD, 220 mg at 11/01/17910 ??? zolpidem (AMBIEN) tablet 5 mg, 5 mg, oral, Nightly PRN, Rachna Burt MD, 5 mg at 10/31/172156 Current functional status: PT Functional Mobility: Pt propels WC 140' x2 w/ supervision and much extra time, sit<-->stand x4 reps in // bars with max assist x2 and SARAH UE support, WC-->mat with max assist x2 via slideboard to right side, seated LE exercises, sit-->supine in SARAH direction with mod assist for SARAH LEs, rolls SARAH with mod assist on mat, supine-->sit on mat with max assist in SARAH directions, supine SARAH LE exercises and stretches, attempted modified pull-ups in sitting/reclined position but pt unable due to LBP, mat-->WC with max assist x1 via sldie board downhill to right side, WC-->bed with total assist x2 via garrett lift. 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 Pt able to stand 4x in // bars with max assist x2, w/ longest stand being approx 30 seconds w/ max assist x2. Pt's arms fatigue a lot also w/ standing, limiting endurance. Pt continues to demonstrate limited AROM with seated and supine LE exercises, needing max assist frequently to gain full ROM with LE exercises.Pt reports right hip pain with PROM into hip flexion for glute stretch, stating his right hip ROM has been limited since ARNALDO in 2005. Pt is max assist for bed mobility and still max-total assist x2 for transfers. Pt expressed LBP with seated exercises and when lying on back. RN notified, pain meds given. Pt is slowly progressing towards goals. Continue per plan of care. OT Functional Mobility: Pt. completes supine to sit max assist and 2 person DEP for sit to stand with manual stand aid OT Self Care: DEP to minimal assist for self care with 1 to 2 people. Pt using rolling shower chairwith sarah supports and manual stand aid 2 person with LE dressing. Pt demonstrates general decreasedbalance, endurance, strength and sensation. Pt will benefit from continued skilled OT to promote IND toward goals. OT Cognition: Appears WNL OT Communication: decreased vocal strength at times. TOWING PILOT Cognition: WFL TOWING PILOT Communication: WFL TOWING PILOT Swallowing: WFL: Regular consistency with thin liquids, tolerating diet well Patient/caregiver goals:Patient and Family Goals: to return home with assistance Pre hospital Living environment: Home Setting: Split level home Prehospital Lives With: Spouse;Adult children REVIEW OF DATA: No results found for this or any previous visit (from the past 24 hour(s)). REVIEW OF IMAGING: Imaging (Last 96 hours) 10/22 1037 XR Chest 1 Vw REHABILITATION DIAGNOSIS: Impairment Code Group: Debility REHAB PLAN OF CARE: The Interdisciplinary Team will work collaboratively to address the patient problems and goals to be managed by the Individualized Interdisciplinary Plan of Care. Rehabilitation Precautions/Restrictions: Falls;MRSA colonization;Isolation Multi-Disciplinary Problems Active Problems Problem: Health Behavior: Start Date: 10/24/17 Goal Start Date End Date Understanding of discharge needs will improve 10/24/17 -- Goal Intervention Frequency Start Date End Date Discuss information regarding discharge instructions -- 10/24/17 -- Goal Intervention Frequency Start Date End Date Identify discharge learning needs (meds, wound care, etc) -- 10/24/17 -- Goal Intervention Frequency Start Date End Date Collaborate with case management -- 10/24/17 -- Intervention Details: (Coordinate discharge planning if the patient needs post- hospital services onphysician order or complex needs related to functional status, cognitive ability, or social supportsystem) Goal Intervention Frequency Start Date End Date Arrange for needed discharge resources and transportation as appropriate -- 10/24/17 -- Goal Intervention Frequency Start Date End Date Identify discharge barriers -- 10/24/17 -- Goal Intervention Frequency Start Date End Date Collaborate with spanish interpreter -- 10/24/17 -- Problem: Lack of Knowledge: Start Date: 10/25/17 Goal Start Date End Date Ability to state ways to decrease the risk of falls will improve 10/25/17 -- Goal Intervention Frequency Start Date End Date Teach fall prevention measures -- 10/25/17 -- Goal Intervention Frequency Start Date End Date Teach information regarding appropriate environmental changes -- 10/25/17 -- Problem: Safety: Start Date: 10/25/17 Goal Start Date End Date Will remain free from falls 10/25/17 -- Goal Intervention Frequency Start Date End Date Assess risk factors for falls -- 10/25/17 -- Intervention Details: (including medications) Goal Intervention Frequency Start Date End Date Implement fall prevention measures -- 10/25/17 -- Goal Intervention Frequency Start Date End Date Collaborate with other disciplines -- 10/25/17 -- Intervention Details: (PT, OT, Pharmacy, MD, etc.) Goal Start Date End Date Will remain free from injury from falls 10/25/17 -- Goal Intervention Frequency Start Date End Date Provide safe environment for conduction of activities of daily living -- 10/25/17 -- Goal Start Date End Date Will remain free from falls and injury in home environment 10/25/17 -- Goal Intervention Frequency Start Date End Date Assess environmental risk factors -- 10/25/17 -- Problem: Activity: Start Date: 10/25/17 Goal Start Date End Date Mobility will improve 10/25/17 -- Goal Intervention Frequency Start Date End Date Encourage mobilization to extent of ability -- 10/25/17 -- Goal Intervention Frequency Start Date End Date Perform repositioning -- 10/25/17 -- Goal Intervention Frequency Start Date End Date Collaborate with physical therapy -- 10/25/17 -- Problem: Lack of Knowledge: Start Date: 10/25/17 Goal Start Date End Date Understanding of ways to prevent future skin breakdown will improve 10/25/17 -- Goal Intervention Frequency Start Date End Date Discuss precautions to protect skin integrity -- 10/25/17 -- Goal Intervention Frequency Start Date End Date Discuss treatment plan for related conditions -- 10/25/17 -- Goal Start Date End Date Ability to identify appropriate dietary choices will improve 10/25/17 -- Goal Intervention Frequency Start Date End Date Discuss dietary adjustments -- 10/25/17 -- Problem: Nutritional: Start Date: 10/25/17 Goal Start Date End Date Dietary intake will improve 10/25/17 -- Goal Intervention Frequency Start Date End Date Assess nutritional status -- 10/25/17 -- Goal Intervention Frequency Start Date End Date Collaborate with dietitian -- 10/25/17 -- Goal Intervention Frequency Start Date End Date Assist appropriate dietary choices -- 10/25/17 -- Goal Start Date End Date Ability to maintain a balanced intake and output will improve 10/25/17 -- Goal Intervention Frequency Start Date End Date Assess intake and output -- 10/25/17 -- Problem: Skin Integrity: Start Date: 10/25/17 Goal Start Date End Date Risk for impaired skin integrity will decrease 10/25/17 -- Goal Intervention Frequency Start Date End Date Identify risk factors for impaired skin integrity and/or pressure injuries -- 10/25/17 -- Goal Intervention Frequency Start Date End Date Monitor medication effects -- 10/25/17 -- Goal Intervention Frequency Start Date End Date Implement precautions to protect skin integrity -- 10/25/17 -- Goal Intervention Frequency Start Date End Date Use moisturizing agent to dry skin -- 10/25/17 -- Goal Intervention Frequency Start Date End Date Perform cleansing of skin when soiled -- 10/25/17 -- Goal Intervention Frequency Start Date End Date Provide pressure-relief bed or mattress -- 10/25/17 -- Goal Start Date End Date Ability to demonstrate warm and dry skin will improve 10/25/17 -- Goal Intervention Frequency Start Date End Date Monitor skin integrity, appearance and/or temperature -- 10/25/17 -- Goal Start Date End Date Circulation will improve to fullest extent possible 10/25/17 -- Goal Intervention Frequency Start Date End Date Assess circulation, sensation and/or motion of extremity -- 10/25/17 -- Problem: Bladder/Voiding Start Date: 10/25/17 Goal Start Date End Date LTG - Patient will achieve acceptable level of continence 10/25/17 -- Goal Start Date End Date STG - Patient demonstrates no accidents 10/25/17 -- Goal Intervention Frequency Start Date End Date Encourage toileting PRN 10/25/17 -- Goal Intervention Frequency Start Date End Date Educate patient about medications PRN 10/25/17 -- Problem: Bowel Elimination Start Date: 10/25/17 Goal Start Date End Date LTG - Patient will have regular and routine bowel evacuation 10/25/17 -- Goal Start Date End Date LTG - Patient will complete bowel elimination 10/25/17 -- Goal Start Date End Date STG - Patient maintains skin integrity 10/25/17 -- Goal Intervention Frequency Start Date End Date Educate patient about ostomy appliances, correct application, protection of skin PRN 10/25/17 -- Goal Start Date End Date STG - Patient will verbalize signs and symptoms of constipation and how to prevent/alleviate 10/25/17 -- Goal Intervention Frequency Start Date End Date Encourage use of aids (stool softener, laxative, suppository) PRN 10/25/17 -- Goal Intervention Frequency Start Date End Date Encourage adjustment and monitoring of fluid intake PRN 10/25/17 -- Goal Intervention Frequency Start Date End Date Teach patient about symptoms of impaction PRN 10/25/17 -- Goal Intervention Frequency Start Date End Date Educate patient about effect of fluid intake on bowel movement PRN 10/25/17 -- Goal Intervention Frequency Start Date End Date Educate patient about adequate fluid intake PRN 10/25/17 -- Goal Start Date End Date STG - Patient will be continent of stool 10/25/17 -- Goal Start Date End Date STG - Patient verbalizes knowledge about relationship between diet, fluid intake, activity and medication on constipation 10/25/17 -- Goal Intervention Frequency Start Date End Date Educate patient about medications PRN 10/25/17 -- Goal Intervention Frequency Start Date End Date Educate patient about adequate fluid intake PRN 10/25/17 -- Problem: Breathing Start Date: 10/25/17 Goal Start Date End Date STG - Respiratory rate and effort will be within normal limits for the patient 10/25/17 -- Goal Intervention Frequency Start Date End Date Provide oxygen therapy as ordered PRN 10/25/17 -- Goal Intervention Frequency Start Date End Date Monitor oygen saturation PRN 10/25/17 -- Goal Intervention Frequency Start Date End Date Encourage incentive spirometer x 10 each hour while awake PRN 10/25/17 -- Goal Intervention Frequency Start Date End Date Encourage/perform oral hygiene as appropriate PRN 10/25/17 -- Goal Intervention Frequency Start Date End Date Collaborate with respiratory therapy to administer medications/treatments PRN 10/25/17 -- Goal Start Date End Date STG - Patient/family will be able to verbalize oxygen safety precautions 10/25/17 -- Goal Intervention Frequency Start Date End Date Educate patient about oxygen PRN 10/25/17 -- Goal Start Date End Date STG - Patient will utilize incentive spirometer 10/25/17 -- Goal Intervention Frequency Start Date End Date Encourage incentive spirometer x 10 each hour while awake PRN 10/25/17 -- Goal Intervention Frequency Start Date End Date Encourage use of incentive spirometer PRN 10/25/17 -- Goal Start Date End Date STG - Patient performs or directs assisted coughing 10/25/17 -- Goal Intervention Frequency Start Date End Date Instruct on coughing and deep breathing PRN 10/25/17 -- Goal Intervention Frequency Start Date End Date Educate patient about forced cough PRN 10/25/17 -- Goal Intervention Frequency Start Date End Date Teach patient about assistive cough PRN 10/25/17 -- Problem: Pain Start Date: 10/25/17 Goal Start Date End Date STG - Pain is manageable through therapies 10/25/17 -- Goal Start Date End Date STG - Patient will verbalize an acceptable level of pain 10/25/17 -- Problem: OT Misc Start Date: 10/25/17 Goal Start Date End Date LTG - Misc 1 10/25/17 -- Goal Details: Pt to dress modified IND Goal Start Date End Date LTG - Misc 2 10/25/17 -- Goal Details: Pt to groom modified IND Goal Start Date End Date [facility] [place] 3 10/25/17 -- Goal Details: Pt to bathe with transfer modified IND Goal Start Date End Date [facility] [place] 4 10/25/17 -- Goal Details: Pt to toilet with transfer modified IND Goal Start Date End Date [facility] [place] 5 10/25/17 -- Goal Details: Pt to complete UE HEP with IND to promote IND with self care and functional transfers Problem: Cognitive: Start Date: 10/25/17 Goal Start Date End Date [facility] 1 10/25/17 -- Goal Details: Patient will execute multiple elements of a task with supervision Goal Start Date End Date [facility] 2 10/25/17 -- Goal Details: Patient will increase problem solving to complete tasks at 90% or with supervision Problem: Physical Regulation: Start Date: 10/25/17 Goal Start Date End Date [facility] 3 10/25/17 -- Goal Details: Patient will increase general strength/coordination through various exercises with supervision until disch Problem: Respiratory: Start Date: 10/25/17 Goal Start Date End Date [facility] 4 10/25/17 -- Goal Details: Patient will maintain/increase SPO2 by 1% in at least one session prior to disch Goal Start Date End Date [facility] 5 10/25/17 -- Goal Details: Patient will increase pulmonary function through various exercises with supervision until disch Problem: PT [facility] [place] Start Date: 10/25/17 Goal Start Date End Date [facility] [place] 1 10/25/17 -- Goal Details: Pt will roll SARAH and supine<-->sit EOB with supervision and bedrails as needed.Pt will sit<-->stand with minimum assist and appropriate assistive device. Pt will transfer bed<-->wheelchair/chair with minimum assist and appropriate assistive device. Goal Start Date End Date [facility] [place] 2 10/25/17 -- Goal Details: Pt will ambulate 150' w/ minimum assist and appropriate assistive device. Pt will ambulate up/down 4 stairs with mod assist and SARAH rails. Goal Start Date End Date [facility] [place] 3 10/25/17 -- Goal Details: Pt will propel WC 150' with supervision and extra time. Goal Start Date End Date [facility] - [facility] [place] 4 10/25/17 -- Goal Details: Pt will complete SARAH LE HEP x15 reps with supervision. Goal Start Date End Date [facility] [place] - [facility] [place] 5 10/25/17 -- Goal Details: Pt and/or family will verbalize and demonstrate understanding of pt's safety and mobility needs upon discharge. * Germaine Fountain RRT - 11/01/2017 8:34 AM CDT Pt sitting up in bed on RA in no distress @ this time. Continue current therapy per home regimen. 11/01/17 0705 RT Protocol Assessment RT Assessment Scoring Needed Bronchodilator Bronchodilator Assessment Scoring Pulmonary Status 3 Surgical Status <30 days ago 0 Chest X-Ray < WEEK 2 Respiratory Pattern 0 Mental Status/LOC 0 Cough 0 Breath Sounds 2 Level of Activity 1 Oxygen Required for SPO2 >92% 0 Bronhcodilator Assessment Score 8 * Александр Espino Jr., MD - 11/01/2017 6:41 AM CDT Pulmonary / Critical Care Daily Progress Chief Complaint/HPI/Hospital Course: Good night. Tolerating BiPAP. With physical therapy. Still with some edema Review of Systems: Review of Systems Constitutional: Negative for chills, fatigue and fever. HENT: Negative for congestion, sore throat and trouble swallowing. Respiratory: Negative for cough, chest tightness, shortness of breath and wheezing. Cardiovascular: Negative for chest pain and leg swelling. Gastrointestinal: Negative for diarrhea, nausea and vomiting. Genitourinary: Negative for dysuria and hematuria. Neurological: Positive for weakness. Negative for dizziness and headaches. Psychiatric/Behavioral: Negative for behavioral problems and sleep disturbance. Temp: [36.3 ??C (97.3 ??F)-36.6 ??C (97.9 ??F)] 36.3 ??C (97.3 ??F) Pulse: [76-99] 78 Resp: [18-20] 18 BP: (99-121)/(56-76) 99/60 FiO2 (%): [35 %] 35 % I/O last 2 completed shifts: In: 320 [P.O.:320] Out: 380 [Urine:380] I/O this shift: In: - Out: 200 [Urine:200] Oxygen / Pulmonary Events Vent settings for last 24 hours: FiO2 (%): [35 %] 35 % Oxygen Therapy SpO2: 100 % Pulse Oximetry Type: Intermittent Patient Activity: At rest O2 Therapy: Supplemental oxygen O2 Del Method: CPAP/Bi-PAP mask FiO2 (%): 35 % O2 Flow Rate (L/min): 2 L/min] Physical exam: Physical Exam Constitutional: He is oriented to person, place, and time. He appears well- developed. No distress. HENT: Head: Normocephalic. Mouth/Throat: Oropharynx is clear and moist. Eyes: Pupils are equal, round, and reactive to light. Right eye exhibits no discharge. Left eye exhibits no discharge. Cardiovascular: Regular rhythm and normal heart sounds. Tachycardia present. Pulmonary/Chest: Effort normal and breath sounds normal. He has no wheezes. He has no rales. Abdominal: There is no rebound and no guarding. Peg Musculoskeletal: He exhibits edema. Neurological: He is alert and oriented to person, place, and time. Psychiatric: He has a normal mood and affect. Current Facility-Administered Medications: ??? acetaminophen (TYLENOL) tablet 650 mg, 650 mg, oral, Q4H PRN, Rachna Burt MD, 650 mg at 10/31/172156 ??? albuterol (PROVENTIL,VENTOLIN) 2.5 mg/0.5 mL nebulizer solution 5 mg, 5 mg, nebulization, Q6H PRN, Rachna Burt MD ??? amiodarone (PACERONE) tablet 200 mg, 200 mg, oral, BID, Rachna Burt MD, 200 mg at ??? apixaban (ELIQUIS) tablet 5 mg, 5 mg, oral, BID, Rachna Burt MD, 5 mg at 10/31/172157 ??? ascorbic acid (VITAMIN C) tablet/chewable tablet 500 mg, 500 mg, oral, BID, Rachna Burt MD, 500 mg at 10/31/172157 ??? aspirin enteric coated tablet 81 mg, 81 mg, oral, Daily, Rachna Burt MD, 81 mg at ??? atorvastatin (LIPITOR) tablet 20 mg, 20 mg, oral, Daily, Rachna Burt MD, 20 mg at ??? baclofen (LIORESAL) tablet 5 mg, 5 mg, oral, Q6H PRN, Rachna Burt MD, 5 mg at 10/31/17 171 ??? bisacodyl (DULCOLAX) suppository 10 mg, 10 mg, rectal, Daily PRN, Jason Shore Jr., NP, 10 mg at 10/29/172138 ??? bisacodyl EC (DULCOLAX EC) tablet 5 mg, 5 mg, oral, BID PRN, Jason Shore Jr., BELLA, 5 mg at 10/29/17 1329 ??? budesonide-formoterol (SYMBICORT) 80-4.5 mcg/actuation inhaler 1 puff, 1 puff, inhalation, BID (RT), Rachna Burt MD, 1 puff at 10/31/17 2030 ??? bumetanide (BUMEX) tablet 0.5 mg, 0.5 mg, oral, Daily, Александр Espino Jr., MD, 0.5 mg at 10/31/17 0812 ??? chlorhexidine (PERIDEX) 0.12 % solution 5 mL, 5 mL, mouth/throat, BID, Rachna Burt MD, 5 mL at 10/31/172199 ??? collagenase 250 unit/gram ointment, , topical, Daily, Rachna Burt MD ??? dextrose (GLUTOSE) 40 % gel 15 g, 15 g, oral, Q15 Min PRN, Jason Shore Jr., OWNER/PHOTOGRAPHER ??? dextrose 50% (concentrated solution) CONCENTRATED solution 25 g, 25 g, intravenous, Q15 Min PRN, Jason Shore Jr., OWNER/PHOTOGRAPHER ??? diphenhydrAMINE (BENADRYL) tab/cap 25 mg, 25 mg, oral, TID PRN, Rachna Burt MD ??? docusate sodium (COLACE) capsule 100 mg, 100 mg, oral, BID, Jason Shore Jr., OWNER/PHOTOGRAPHER, 100 mg at 10/31/17 0812 ??? ergocalciferol (VITAMIN D) capsule 50,000 Units, 50,000 Units, oral, Weekly, Adam Pastor MD, 50,000 Units at 10/26/17 0802 ??? glucagon injection 1 mg, 1 mg, intramuscular, Q30 Min PRN, Jason Shore Jr., BELLA ??? ipratropium-albuterol (DUO-NEB) 0.5-2.5 mg/3 mL nebulizer solution 3 mL, 3 mL, nebulization, Q4H PRN (RT), Rachna Burt MD ??? lidocaine (LIDODERM) 5 % patch 1 patch, 1 patch, transdermal, Daily, Jason Shore Jr., OWNER/PHOTOGRAPHER, Stopped at 10/31/170 ??? metoprolol (LOPRESSOR) tablet 12.5 mg, 12.5 mg, oral, BID, Rachna Burt MD, 12.5 mg at 10/31/172157 ??? miconazole 2 % powder, , topical, BID, Rachna Burt MD ??? ondansetron (ZOFRAN) tablet 4 mg, 4 mg, oral, Q4H PRN, Rachna Burt MD ??? oxyCODONE (ROXICODONE) tablet 10 mg, 10 mg, oral, Q4H PRN, Rachna Burt MD ??? oxyCODONE (ROXICODONE) tablet 5 mg, 5 mg, oral, Q4H PRN, Rachna Burt MD, 5 mg at 10/31/17 1516 ??? pantoprazole DR (PROTONIX) extended release tablet 40 mg, 40 mg, oral, Daily, Rachna Burt MD, 40 mg at 10/31/17 0813 ??? polyethylene glycol (MIRALAX) packet 17 g, 17 g, oral, BID PRN, Jason Shore Jr., BELLA, 17 g at 10/29/17 0842 ??? senna (SENOKOT) tablet 1 tablet, 1 tablet, oral, Daily, Rachna Burt MD, 1 tablet at 10/31/17 0813 ??? tamsulosin (FLOMAX) extended release capsule 0.4 mg, 0.4 mg, oral, Nightly, Rachna Burt MD, 0.4 mg at 10/31/178 ??? zinc sulfate (ZINCATE) capsule 220 mg, 220 mg, oral, Daily, Rachna Burt MD, 220 mg at 10/31/17 0000 ??? zolpidem (AMBIEN) tablet 5 mg, 5 mg, oral, Nightly PRN, Rachna Burt MD, 5 mg at 10/31/177 Labs: Labs reviewed: Mild hyponatremia. Hypercapnia has resolved No results found for this or any previous visit (from the past 24 hour(s)). Imaging: Chest x-ray October 30 improved Diagnostics: Ejection fraction 65%. No vegetations. Mild left atrial enlargement Microbiology: Positive sputum culture for stenotrophomonas on October 13 Assessment & Plan: Assessment/Plan Hyponatremia Assessment & Plan Hyponatremia. Suspect dilutional. Monitor renal function with diuresis. Still with edema on exam Pneumonia Assessment & Plan Completed treatment for pneumonia, empyema prior to transfer to [facility]. Finished Bactrim for stenotrophomonas pneumonia here. Two-view chest x-ray much better Diskitis Assessment & Plan Completed debridement, prolonged antibiotic therapy for an L1 diskitis. Has had some back pain. Hypercapnic respiratory failure (CMS/HCC) Assessment & Plan Successfully decannulated. FiO2 to maintain a saturation of 90%. Continue BiPAP at night. Eventualevaluation for home noninvasive positive pressure ventilation at night. Arterial blood gas noted. Hypercapnia has resolved COPD (chronic obstructive pulmonary disease) (CMS/HCC) Assessment & Plan Pulmonary function testing when stable. Continue inhaled bronchodilator therapy. Former smoker Assessment & Plan May meet criteria for lung cancer screen Chronic atrial fibrillation (CMS/HCC) Assessment & Plan Hemodynamically stable. Monitor for bleeding. Continue amiodarone, aspirin, Lipitor, metoprolol, apixaban For today: Off Bactrim for stenotrophomonas pneumonia. Diuretic dose adjusted. Hyponatremia is stable. I suspect dilutional based on physical exam, increased total body water. He is not on a thiazide, SSRI etc Prophylaxis: DVT ppx: Long-term oral anticoagulation At Code Status: Full Code. Александр Espino Jr., MD 11/01/2017 6:46 AM This note was transcribed using Speech Recognition software. As a result, there may be grammatical and spelling errors that are unintended. Every attempt is made to have correct dictation. If there are any questions or major errors, please contact me * Adam Pastor MD - 10/31/2017 6:32 AM CDT Internal Medicine Progress Note Adam Pastor M.D. 10/31/2017 Patient Name: José Miguel Jang Admit Date: 10/24/2017 PCP: Briana Medeiros MD Consult requested by Dr Rachna Burt MD Patient Name: José Miguel Jang PCP: Briana Medeiros MD Date of admission: 10/24/2017 Date of Service: 10/31/2017 Reason for Consultation: Medical Management Slept. Pain better controlled. +edema, continue 0.5. Tolerates BiPAP. Continue aggressive pulm toilet. Dr Espino following. ABG noted. No fever, chills, chest pain, acute SOB. Diffusely weak. Tolerating eliquis. H/H low, but fairly stable. WBC 7. Glc normal, stopped metformin; A1c 4.7%. Stop SSI and accuchecks Bowel regimen. Vitals acceptable. Na 134, stable. Watch vol status PMHx: Past Medical History: Diagnosis Date ??? A-fib (CMS/HCC) ??? A-fib (CMS/HCC) history ??? Chronic obstructive pulmonary disease (CMS/HCC) COPD ??? Coronary artery disease ??? Diabetes mellitus (CMS/HCC) ??? HX OTHER MEDICAL DJD ??? Hypertension PSurgHx: Past Surgical History: Procedure Laterality Date ??? BACK SURGERY ??? TOTAL HIP ARTHROPLASTY Bilateral ??? TRACHEOSTOMY All: Allergies Allergen Reactions ??? Penicillins Outpt Meds: Prescriptions Prior to Admission Medication Sig Dispense Refill Last Dose ??? acetaminophen (TYLENOL) 325 mg tablet Take 650 mg by mouth every 4 (four) hours as needed for pain. ??? albuterol (PROVENTIL,VENTOLIN) 2.5 mg/0.5 mL solution for nebulization Take 5 mg by nebulization every 6 (six) hours as needed. ??? amiodarone (PACERONE) 200 mg tablet Take 200 mg by mouth 2 (two) times a day. ??? apixaban (ELIQUIS) 5 mg tablet Take 5 mg by mouth 2 (two) times a day. ??? aspirin 81 mg chewable tablet Take 81 mg by mouth daily. ??? atorvastatin (LIPITOR) 20 mg tablet Take 20 mg by mouth daily. ??? bisacodyl (DULCOLAX) 10 mg suppository Insert 10 mg into the rectum every third day. ??? bumetanide (BUMEX) 0.5 mg tablet Take 0.25 mg by mouth daily. ??? chlorhexidine (PERIDEX) 0.12 % solution Apply 5 mL to the mouth or throat 2 (two) times a day. ??? diphenhydrAMINE (BENADRYL) 25 mg capsule Take 25 mg by mouth 3 (three) times a day as needed for itching. ??? docusate (COLACE) liquid 50 mg/5 mL Take 100 mg by mouth daily. ??? famotidine (PEPCID) 20 mg tablet Take 20 mg by mouth 2 (two) times a day. ??? insulin lispro (HumaLOG) 100 unit/mL injection Inject 0-10 Units under the skin 4 (four) times a day (with meals and nightly). Low dose sliding scale ??? LORazepam (ATIVAN) 2 mg/mL injection Infuse 1 mg into a venous catheter every 6 (six) hours as needed for anxiety. ??? metoprolol (LOPRESSOR) 25 mg tablet Take 12.5 mg by mouth 2 (two) times a day. ??? ondansetron (ZOFRAN) 4 mg tablet Take 4 mg by mouth every 4 (four) hours as needed for nausea or vomiting. ??? oxyCODONE (ROXICODONE) 5 mg immediate release tablet Take 5 mg by mouth every 4 (four) hours asneeded. ??? oxyCODONE (ROXICODONE) 5 mg immediate release tablet Take 10 mg by mouth every 4 (four) hours as needed (prn pain scale 7-10). ??? polyethylene glycol (MIRALAX) 17 gram packet Take 17 g by mouth daily as needed. ??? senna (SENOKOT) 8.6 mg tablet Take 1 tablet by mouth daily. ??? sulfamethoxazole-trimethoprim (BACTRIM,SEPTRA) 800-160 mg per tablet Take 1 tablet by mouth 2 (two) times a day. ??? tamsulosin (FLOMAX) 0.4 mg extended release capsule Take 0.4 mg by mouth nightly. ??? zolpidem (AMBIEN) 5 mg tablet Take 5 mg by mouth nightly as needed for sleep. ??? aspirin (ASPIRIN LOW DOSE) 81 mg tablet take 1 Tablet (81MG) by oral route every day 0 Taking ??? budesonide-formoterol (SYMBICORT) 80-4.5 mcg/actuation inhaler Inhale 1 puff 2 (two) times a day. Taking ??? cyanocobalamin, vitamin B-12, 500 mcg lozenge Take by mouth. Taking ??? diclofenac DR (VOLTAREN) 75 mg EC tablet take 2 Tablet (150MG) by oral route every day (Patientnot taking: Reported on 02/22/2017 ) 0 Not Taking ??? doxepin (SINEquan) 25 mg capsule TAKE 1 CAPSULE TWICE A DAY Taking ??? ferrous fumarate 325 mg (106 mg iron) tablet Take 2 tablets by mouth daily. Taking ??? furosemide (LASIX) 20 mg tablet take 1 tablet by oral route every day (Patient not taking: Reported on 02/22/2017 ) 0 0 Not Taking ??? metFORMIN (GLUCOPHAGE) 500 mg tablet Take 500 mg by mouth 2 (two) times a day with meals. Taking ??? pantoprazole DR (PROTONIX) 40 mg EC tablet take 1 tablet by oral route every day 0 0 Taking ??? potassium chloride ER (potassium chloride ER) 10 mEq CR tablet TAKE ONE TABLET BY MOUTH ONCE DAILY WITH FOOD (Patient not taking: Reported on 02/22/2017 ) 30 0 Not Taking Inpatient Meds: Current Facility-Administered Medications: ??? acetaminophen (TYLENOL) tablet 650 mg, 650 mg, oral, Q4H PRN, Rachna Burt MD, 650 mg at 10/30/17 7583 ??? albuterol (PROVENTIL,VENTOLIN) 2.5 mg/0.5 mL nebulizer solution 5 mg, 5 mg, nebulization, Q6H PRN, Rachna Burt MD ??? amiodarone (PACERONE) tablet 200 mg, 200 mg, oral, BID, Rachna Burt MD, 200 mg at ??? apixaban (ELIQUIS) tablet 5 mg, 5 mg, oral, BID, Rachna Burt MD, 5 mg at 10/30/172213 ??? ascorbic acid (VITAMIN C) tablet/chewable tablet 500 mg, 500 mg, oral, BID, Rachna Burt MD, 500 mg at 10/30/172214 ??? aspirin enteric coated tablet 81 mg, 81 mg, oral, Daily, Rachna Burt MD, 81 mg at ??? atorvastatin (LIPITOR) tablet 20 mg, 20 mg, oral, Daily, Rachna Burt MD, 20 mg at ??? bisacodyl (DULCOLAX) suppository 10 mg, 10 mg, rectal, Daily PRN, Jason Shore Jr., BELLA, 10 mg at 10/29/172138 ??? bisacodyl EC (DULCOLAX EC) tablet 5 mg, 5 mg, oral, BID PRN, Jason Shore Jr. OWNER/PHOTOGRAPHER, 5 mg at 10/29/179 ??? budesonide-formoterol (SYMBICORT) 80-4.5 mcg/actuation inhaler 1 puff, 1 puff, inhalation, BID (RT), Rachna Burt MD, 1 puff at 10/30/172118 ??? bumetanide (BUMEX) tablet 0.5 mg, 0.5 mg, oral, Daily, Александр Espino Jr., MD, 0.5 mg at 10/30/17 0841 ??? chlorhexidine (PERIDEX) 0.12 % solution 5 mL, 5 mL, mouth/throat, BID, Rachna Burt MD, 5 mL at 10/30/172216 ??? collagenase 250 unit/gram ointment, , topical, Daily, Rachna Burt MD ??? dextrose (GLUTOSE) 40 % gel 15 g, 15 g, oral, Q15 Min PRN, Jason Shore Jr., NP ??? dextrose 50% (concentrated solution) CONCENTRATED solution 25 g, 25 g, intravenous, Q15 Min PRN, Jason Shore Jr., BELLA ??? diphenhydrAMINE (BENADRYL) tab/cap 25 mg, 25 mg, oral, TID PRN, Rachna Burt MD ??? docusate sodium (COLACE) capsule 100 mg, 100 mg, oral, BID, Jason Shore Jr., OWNER/PHOTOGRAPHER, 100 mg at 10/30/17 1309 ??? ergocalciferol (VITAMIN D) capsule 50,000 Units, 50,000 Units, oral, Weekly, Adam Pastor MD, 50,000 Units at 10/26/17 0802 ??? glucagon injection 1 mg, 1 mg, intramuscular, Q30 Min PRN, Jason Shore Jr., BELLA ??? ipratropium-albuterol (DUO-NEB) 0.5-2.5 mg/3 mL nebulizer solution 3 mL, 3 mL, nebulization, Q4H PRN (RT), Rachna Burt MD ??? lidocaine (LIDODERM) 5 % patch 1 patch, 1 patch, transdermal, Daily, Jason Shore Jr., NP, Stopped at 10/30/178 ??? metoprolol (LOPRESSOR) tablet 12.5 mg, 12.5 mg, oral, BID, Rachna Burt MD, 12.5 mg at 10/30/17 2214 ??? miconazole 2 % powder, , topical, BID, Rachna Burt MD ??? ondansetron (ZOFRAN) tablet 4 mg, 4 mg, oral, Q4H PRN, Rachna Burt MD ??? oxyCODONE (ROXICODONE) tablet 10 mg, 10 mg, oral, Q4H PRN, Rachna Burt MD ??? oxyCODONE (ROXICODONE) tablet 5 mg, 5 mg, oral, Q4H PRN, Rachna Burt MD ??? pantoprazole DR (PROTONIX) extended release tablet 40 mg, 40 mg, oral, Daily, Rachna Burt MD, 40 mg at 10/30/17 0834 ??? polyethylene glycol (MIRALAX) packet 17 g, 17 g, oral, BID PRN, Jason Shore Jr., OWNER/PHOTOGRAPHER, 17 g at 10/29/17 0842 ??? senna (SENOKOT) tablet 1 tablet, 1 tablet, oral, Daily, Rachna Burt MD, 1 tablet at 10/30/17 0835 ??? tamsulosin (FLOMAX) extended release capsule 0.4 mg, 0.4 mg, oral, Nightly, Rachna Burt MD, 0.4 mg at 10/30/17 2213 ??? zinc sulfate (ZINCATE) capsule 220 mg, 220 mg, oral, Daily, Rachna Burt MD, 220 mg at 10/30/17 0835 ??? zolpidem (AMBIEN) tablet 5 mg, 5 mg, oral, Nightly PRN, Rachna Burt MD, 5 mg at 10/30/17 2216 SocHx: Social History Substance Use Topics ??? Smoking status: Former Smoker ??? Smokeless tobacco: Never Used ??? Alcohol use No FamHx: History reviewed. No pertinent family history. Review of Systems History from patient and medical records General positive for - fatigue ENT positive for - dysphagia CV positive for - chest pain, dyspnea on exertion, edema, irregular heartbeat and shortness of breath Respiratory positive for - pleuritic pain and shortness of breath GI positive for - change in bowel habits positive for - change in urinary stream MS positive for - gait disturbance, joint pain, joint stiffness and muscular weakness Neuro positive for - weakness All Other ROS Negative BP 107/77 (BP Location: Right arm, Patient Position: Lying) Pulse 88 Temp 36.5 ??C (97.7 ??F) (Axillary) Resp 18 Ht 180.3 cm (5' 11 ) Wt 93 kg (205 lb 0.4 oz) SpO2 100% BMI 28.60 kg/m?? Intake/Output Summary (Last 24 hours) at 10/31/17 0710 Last data filed at 10/31/17 0100 Gross per 24 hour Intake 250 ml Output 150 ml Net 100 ml Wt Readings from Last 3 Encounters: 10/29/17 93 kg (205 lb 0.4 oz) 10/24/17 88.9 kg (196 lb) 02/22/17 116.1 kg (256 lb) General appearance Alert, no distress Head Normocephalic, without obvious abnormality, atraumatic Throat Oropharynx clear Neck Supple. Trach stoma healing Lungs Clear to auscultation bilaterally, diminished bases Chest wall +tenderness Heart Regular rate and rhythm Abdomen Soft, non-tender. Bowel sounds normal. G tube Extremities + edema Neurologic Diffusely weak CBC: Recent Labs Lab Units 10/31/17 0357 10/28/17 0454 10/26/17 0403 WHITE BLOOD CELLS K/cumm 7.1 7.8 9.2 HEMOGLOBIN g/dL 9.1* 9.0* 9.5* HEMATOCRIT % 29.9* 29.4* 31.1* PLATELETS K/cumm 137* 156 152 BMP: Recent Labs Lab Units 10/31/1735610/30/17 0644 10/30/17 0401 10/29/17 0307 10/28/17 0454 SODIUM mmol/L 134* -- 133* -- 136 -- 134* POTASSIUM PLASMA mmol/L 4.3 -- 4.1 -- 4.2 -- 4.3 CHLORIDE mmol/L 97 -- 98 -- 97 -- 98 CO2 mmol/L 25 -- 25 -- 27 -- 26 ANIONGAP mmol/L 12 -- 10 -- 12 -- 10 GLUCOSE mg/dL 92 -- 97 -- 94 -- 97 POC GLUCOSE MONITOR mg/dL -- 98 -- < > -- < > -- BUN SERUM mg/dL 15 -- 15 -- 15 -- 15 CREATININE mg/dL 0.73* -- 0.91 -- 0.94 -- 0.86 CALCIUM mg/dL 8.3* -- 8.9 -- 8.4* -- 8.9 ALBUMIN g/dL -- -- 3.2* -- 3.0* -- 3.0* ALK PHOS Units/L -- -- 120 -- 111 -- 106 ALT Units/L -- -- 47 -- 45 -- 47 AST Units/L -- -- 27 -- 22 -- 20 BILIRUBIN TOTAL mg/dL -- -- 0.4 -- 0.3 -- 0.4 < > = values in this interval not displayed. EKG: No results found for this or any previous visit. RADIOLOGY: No results found. 1. Debility: Complicated recent medical course. Comprehensive rehab program. 2. L1 abscess s/p debridement with MRSA empyema: Pain control. F/u with surgery team. Complete course of bactrim. Chest tube out 3. Respiratory failure: S/p trach, decannulated. Aggressive pulm toilet. BDs/inhaled steroids. Dr Espino following. NIPPV as required. H/o COPD and prior tobacco abuse. 4. Dysphagia: S/p PEG. TOWING PILOT, RD f/u. Aspiration precautions 5. Dm2: A1c 4.7%. Metformin held. SSI, accuchecks. RD eval. 6. CAD: ASA, statin, BBlocker 7. HTN: Metoprolol, bumex 8. Afib: Eliquis, amio, metoprolol 9. Urinary retention: Flomax, monitor UOP 10. Dyslipid; Statin 11. Anemia: ACD and ABLA. Monitor cbc, transfuse for hgb under 7 or if symptomatic. Thank you for involving me in this patient's care. I will continue to follow along with you. ?? DVT Prophylaxis: Eliquis ?? GI prophylaxis: PPI ?? Code Status Full Code 35 min were spent in the care of this patient today; this may have included family conferences, nursing conferences and discussion with any consultants Adam Pastor M.D. * Isabell Garcia RRT - 10/30/2017 9:24 PM CDT RT: Pt in bed with no signs of s.o.b. Pt take Symbicort at home. Continue Symbicort. * Александр Espino Jr., MD - 10/30/2017 8:25 AM CDT Pulmonary / Critical Care Daily Progress Chief Complaint/HPI/Hospital Course: Up in chair. Good night. Tolerating BiPAP. With physical therapy. Edema may be slightly less. Bumexdose was adjusted. Review of Systems: Review of Systems Constitutional: Negative for chills, fatigue and fever. HENT: Negative for congestion, sore throat and trouble swallowing. Respiratory: Negative for cough, chest tightness, shortness of breath and wheezing. Cardiovascular: Negative for chest pain and leg swelling. Gastrointestinal: Negative for diarrhea, nausea and vomiting. Genitourinary: Negative for dysuria and hematuria. Neurological: Positive for weakness. Negative for dizziness and headaches. Psychiatric/Behavioral: Negative for behavioral problems and sleep disturbance. Temp: [36.4 ??C (97.6 ??F)] 36.4 ??C (97.6 ??F) Pulse: [84-89] 89 Resp: [16-20] 20 BP: (102-127)/(65-81) 127/72 FiO2 (%): [35 %] 35 % I/O last 2 completed shifts: In: 750 [P.O.:750] Out: 625 [Urine:625] No intake/output data recorded. Oxygen / Pulmonary Events Vent settings for last 24 hours: FiO2 (%): [35 %] 35 % Oxygen Therapy SpO2: 98 % O2 Therapy: Supplemental oxygen O2 Del Method: Nasal cannula FiO2 (%): 35 % O2 Flow Rate (L/min): 2 L/min] Physical exam: Physical Exam Constitutional: He is oriented to person, place, and time. He appears well- developed. No distress. HENT: Head: Normocephalic. Mouth/Throat: Oropharynx is clear and moist. Eyes: Pupils are equal, round, and reactive to light. Right eye exhibits no discharge. Left eye exhibits no discharge. Cardiovascular: Regular rhythm and normal heart sounds. Tachycardia present. Pulmonary/Chest: Effort normal and breath sounds normal. He has no wheezes. He has no rales. Abdominal: There is no rebound and no guarding. Peg Musculoskeletal: He exhibits edema. Neurological: He is alert and oriented to person, place, and time. Psychiatric: He has a normal mood and affect. Current Facility-Administered Medications: ??? acetaminophen (TYLENOL) tablet 650 mg, 650 mg, oral, Q4H PRN, Rachna Burt MD, 650 mg at 10/30/17 0644 ??? albuterol (PROVENTIL,VENTOLIN) 2.5 mg/0.5 mL nebulizer solution 5 mg, 5 mg, nebulization, Q6H PRN, Rachna Burt MD ??? amiodarone (PACERONE) tablet 200 mg, 200 mg, oral, BID, Rachna Burt MD, 200 mg at ??? apixaban (ELIQUIS) tablet 5 mg, 5 mg, oral, BID, Rachna Burt MD, 5 mg at 10/29/172138 ??? ascorbic acid (VITAMIN C) tablet/chewable tablet 500 mg, 500 mg, oral, BID, Rachna Burt MD, 500 mg at 10/29/172138 ??? aspirin enteric coated tablet 81 mg, 81 mg, oral, Daily, Rachna Burt MD, 81 mg at ??? atorvastatin (LIPITOR) tablet 20 mg, 20 mg, oral, Daily, Rachna Burt MD, 20 mg at ??? bisacodyl (DULCOLAX) suppository 10 mg, 10 mg, rectal, Daily PRN, Jason Shore Jr., OWNER/PHOTOGRAPHER, 10 mg at 10/29/172138 ??? bisacodyl EC (DULCOLAX EC) tablet 5 mg, 5 mg, oral, BID PRN, Jason Shore Jr., OWNER/PHOTOGRAPHER, 5 mg at 10/29/171328 ??? budesonide-formoterol (SYMBICORT) 80-4.5 mcg/actuation inhaler 1 puff, 1 puff, inhalation, BID (RT), Rachna Burt MD, 1 puff at 10/30/17825 ??? bumetanide (BUMEX) tablet 0.5 mg, 0.5 mg, oral, Daily, Александр Espino Jr., MD, 0.5 mg at 10/29/17 0843 ??? chlorhexidine (PERIDEX) 0.12 % solution 5 mL, 5 mL, mouth/throat, BID, Rachna Burt MD, 5 mL at 10/29/172140 ??? collagenase 250 unit/gram ointment, , topical, Daily, Rachna Burt MD ??? dextrose (GLUTOSE) 40 % gel 15 g, 15 g, oral, Q15 Min PRN, Jason Shore Jr., NP ??? dextrose 50% (concentrated solution) CONCENTRATED solution 25 g, 25 g, intravenous, Q15 Min PRN, Jason Shore Jr., BELLA ??? diphenhydrAMINE (BENADRYL) tab/cap 25 mg, 25 mg, oral, TID PRN, Rachna Burt MD ??? docusate sodium (COLACE) capsule 100 mg, 100 mg, oral, BID, Jason Shore Jr., OWNER/PHOTOGRAPHER, 100 mg at 10/29/172139 ??? ergocalciferol (VITAMIN D) capsule 50,000 Units, 50,000 Units, oral, Weekly, Adam Pastor MD, 50,000 Units at 10/26/17 0802 ??? glucagon injection 1 mg, 1 mg, intramuscular, Q30 Min PRN, Jason Shore Jr., BELLA ??? ipratropium-albuterol (DUO-NEB) 0.5-2.5 mg/3 mL nebulizer solution 3 mL, 3 mL, nebulization, Q4H PRN (RT), Rachna Burt MD ??? lidocaine (LIDODERM) 5 % patch 1 patch, 1 patch, transdermal, Daily, Jason Shore Jr., NP, Stopped at 10/29/172139 ??? metoprolol (LOPRESSOR) tablet 12.5 mg, 12.5 mg, oral, BID, Rachna Burt MD, 12.5 mg at 10/29/172137 ??? miconazole 2 % powder, , topical, BID, Rachna Burt MD ??? ondansetron (ZOFRAN) tablet 4 mg, 4 mg, oral, Q4H PRN, Rachna Burt MD ??? oxyCODONE (ROXICODONE) tablet 10 mg, 10 mg, oral, Q4H PRN, Rachna Burt MD ??? oxyCODONE (ROXICODONE) tablet 5 mg, 5 mg, oral, Q4H PRN, Rachna Burt MD ??? pantoprazole DR (PROTONIX) extended release tablet 40 mg, 40 mg, oral, Daily, Rachna Burt MD, 40 mg at 10/29/17 0843 ??? polyethylene glycol (MIRALAX) packet 17 g, 17 g, oral, BID PRN, Jason Shore Jr., OWNER/PHOTOGRAPHER, 17 g at 10/29/17 0842 ??? senna (SENOKOT) tablet 1 tablet, 1 tablet, oral, Daily, Rachna Burt MD, 1 tablet at 10/29/17842 ??? tamsulosin (FLOMAX) extended release capsule 0.4 mg, 0.4 mg, oral, Nightly, Rachna Burt MD, 0.4 mg at 10/29/172137 ??? zinc sulfate (ZINCATE) capsule 220 mg, 220 mg, oral, Daily, Rachna Burt MD, 220 mg at 10/29/17842 ??? zolpidem (AMBIEN) tablet 5 mg, 5 mg, oral, Nightly PRN, Rachna Burt MD, 5 mg at 10/29/172138 Labs: Labs reviewed: Hypercapnic, hypoxemic respiratory failure. Hyponatremia Recent Results (from the past 24 hour(s)) Glucose POC Collection Time: 10/29/17 11:58 AM Result Value Ref Range Glucose, POC, bld 157 (H) 70 - 140 mg/dL Glucose POC Collection Time: 10/29/17 4:58 PM Result Value Ref Range Glucose, POC, bld 112 70 - 140 mg/dL Comprehensive metabolic panel Collection Time: 10/30/17 4:01 AM Result Value Ref Range Sodium 133 (L) 135 - 145 mmol/L Potassium 4.1 3.3 - 4.9 mmol/L CO2 25 22 - 32 mmol/L BUN 15 8 - 25 mg/dL Glucose 97 70 - 199 mg/dL Creatinine 0.91 0.80 - 1.30 mg/dL Calcium 8.9 8.5 - 10.3 mg/dL Chloride 98 97 - 110 mmol/L Albumin 3.2 (L) 3.5 - 5.0 g/dL AST 27 10 - 50 Units/L ALT 47 7 - 55 Units/L Alk phos 120 40 - 130 Units/L Bilirubin 0.4 0.1 - 1.2 mg/dL Protein, pl 5.7 (L) 6.5 - 8.5 g/dL Anion Gap 10 2 - 15 mmol/L Phosphorus Collection Time: 10/30/17 4:01 AM Result Value Ref Range Phosphorus, pl 3.1 2.3 - 4.5 mg/dL eGFR Collection Time: 10/30/17 4:01 AM Result Value Ref Range GFR 86 mL/min/1.73 m2 Glucose POC Collection Time: 10/30/17 6:44 AM Result Value Ref Range Glucose, POC, bld 98 70 - 140 mg/dL Imaging: Last chest x-ray was October 22. Left lower lobe pulmonary infiltrate no Diagnostics: Ejection fraction 65%. No vegetations. Mild left atrial enlarged Microbiology: Positive sputum culture for stenotrophomonas on October 13 Assessment & Plan: Assessment/Plan Hyponatremia Assessment & Plan Hypernatremia. Suspect dilutional. Monitor renal function with diuresis. Still with edema on exam Pneumonia Assessment & Plan Completed treatment for pneumonia, empyema prior to transfer to [facility]. Completed Bactrim for stenotrophomonas pneumonia. Two-view chest x-ray today Diskitis Assessment & Plan Completed debridement, prolonged antibiotic therapy for an L1 diskitis. Has had some back pain. Hypercapnic respiratory failure ([facility]) Assessment & Plan Successfully decannulated. FiO2 to maintain a saturation of 90%. Continue BiPAP at night. Eventual evaluation for home noninvasive positive pressure ventilation at night. Arterial blood gas today COPD (chronic obstructive pulmonary disease) ([facility]) Assessment & Plan Pulmonary function testing when stable. Continue inhaled bronchodilator therapy. Former smoker Assessment & Plan May meet criteria for lung cancer screen Chronic atrial fibrillation ([facility]) Assessment & Plan Hemodynamically stable. Monitor for bleeding. Continue amiodarone, aspirin, Lipitor, metoprolol, apixaban For today: Off Bactrim for stenotrophomonas pneumonia. Diuretic dose adjusted. Hyponatremia persists. I suspect dilutional based on physical exam, increased total body water. He is not on a thiazide, SSRI etc Prophylaxis: DVT ppx: Long-term oral anticoagulation At Code Status: Full Code. Александр Espino Jr., MD 10/30/2017 8:29 AM This note was transcribed using Speech Recognition software. As a result, there may be grammatical and spelling errors that are unintended. Every attempt is made to have correct dictation. If there are any questions or major errors, please contact me * Rachna Burt MD - 10/30/2017 7:58 AM CDT [facility] Rehabilitation Medicine Progress Note NAME: José Miguel Jang AGE: 66 y.o. : 1950 Date of Note: 10/30/2017 REHABILITATION PROGRESS NOTE Physician Physical Assessment/ Progress Note Rehab Impairment Code: Impairment Code Group: Debility Date of onset: Date of Onset: 07/29/17 Date of admission: 10/24/2017 Subjective: Slept well. Seen with nursing. Trach stoma healing. Tolerating BiPAP. On bactrim for stenotrophomonas maltophilia pna. Dr. Espino following. PEG in place. Not being used. We will remove as he continues to improve. Stronger over all. Still endurance significantly compromised. Pleased with therapy. Max assist with slide board transfer. Generalized weakness. Max assist for transfers. Using standing f rame. Back incision c/d/i. Wound care following. Santyl to an area of partial dehiscence. No erythema. Serous drainage. Slowly healing. Encouraged po intake. Continue supplements. RN following. Continent of bowel and bladder. On eliquis. Anemia, monitor. Glucose overall controlled. IM following. Nofever chills, chest pain , or acute sob. Family supportive. PHYSICAL EXAMINATION: Vitals: 10/29/17 2138 10/30/17 0341 10/30/17 0820 10/30/17 0826 BP: 118/68 127/72 100/60 BP Location: Right arm Left arm Patient Position: Lying Sitting Pulse: 87 89 92 Resp: 20 Temp: TempSrc: SpO2: 100% 98% Weight: Height: Physical exam:?? GENERAL: Pleasant and in no acute distress MENTAL STATUS: ??Awake, alert and oriented to person, place and time with normal attention span, insight, and concentration. ??Naming and repetition are normal. ??Remote and recent memory intact. ??Fund of knowledge is appropriate. SPEECH: ??Fluent, non-dysarthric, no aphasia noted CRANIAL NERVES: Visual herrrea are full on confrontation. ??Pupils are equally round and reactive tolight??bilaterally. Extraocular movements are??full and intact. No nystagmus is noted. ??There is no loss of sensation over the face. ??There is no facial weakness or asymmetry. ??Hearing intact bilaterally to finger rubbing. Uvula and palate elevate in the midline. Shoulder shrug is symmetric. ??Tongue protrudes in the midline. MOTOR: Generalized weakness. Moves all extremities. BL LE: hip flexors 3/5, knee extension and flexion 4/5, BL DF 3/5 Bulk and tone are nomal. ??No abnormal movements are noted. REFLEXES: 1+ and symmetric in bilateral upper extremities. SENSORY: Intact to light??touch in all four extremities.?No extinction with bilateral stimulation. COORDINATION: ??Normal GAIT AND STATION: Not tested, per therapy notes CARDIOVASCULAR: Regular rate and rhythm. ??No murmurs, rubs, gallops or carotid bruits. LUNGS: Clear to auscultation bilaterally. No wheezes, rhonchi or rales. ABDOMEN: ??Soft and non-tender.?Normal bowel sounds were noted. EXTREMITIES: ??No edema, back incision dehisced IMPRESSION: Rehab Diagnosis: Respiratory Failure Impairment Code Group: Debility Physician Problem List/ Comorbidities: Active Problems: Chronic atrial fibrillation ([facility]) Former smoker COPD (chronic obstructive pulmonary disease) ([facility]) Hypercapnic respiratory failure ([facility]) Diskitis Pneumonia Hyponatremia MEDICAL PLAN: 1. Debility: ??Complicated recent medical course. ??Comprehensive inpatient rehabilitation, family training, structured environment. 2. 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 ??F/u with surgery team. ??Complete course of bactrim. ??Chest tube out. Wound care following back incision. 3. Respiratory failure: ??S/p trach, decannulated. ??Aggressive pulm toilet. ??BDs/inhaled steroids. ??Dr Espino following. NIPPV as required. ??H/o COPD and prior tobacco abuse. 4. Dysphagia: ??S/p PEG. ??TOWING PILOT, RD f/u. ??Aspiration precautions 5. Dm2: ??A1c 4.7%: prudent diet, diabetic education. ??Metformin, SSI, accuchecks. ??RD eval. 6. CAD: ??ASA, statin, BBlocker 7. HTN: ??Metoprolol, bumex 8. Afib: ??Eliquis, amio, metoprolol 9. Urinary retention: ??Flomax, monitor UOP 10. Dyslipid; ??Statin 11. Anemia: ??ACD and ABLA. ??Monitor cbc, transfuse for hgb under 7 or if symptomatic. 12. Nutrition: rd consult. ?? * DVT prophylaxsis: eliquis * GI prophylaxsis: ppi CODE STATUS: Full Code ALLERGY: Allergies Allergen Reactions ??? Penicillins Current Facility-Administered Medications: ??? acetaminophen (TYLENOL) tablet 650 mg, 650 mg, oral, Q4H PRN, Rachna Burt MD, 650 mg at 10/30/17 1310 ??? albuterol (PROVENTIL,VENTOLIN) 2.5 mg/0.5 mL nebulizer solution 5 mg, 5 mg, nebulization, Q6H PRN, Rachna Burt MD ??? amiodarone (PACERONE) tablet 200 mg, 200 mg, oral, BID, Rachna Burt MD, 200 mg at ??? apixaban (ELIQUIS) tablet 5 mg, 5 mg, oral, BID, Rachna Burt MD, 5 mg at 10/30/17 0835 ??? ascorbic acid (VITAMIN C) tablet/chewable tablet 500 mg, 500 mg, oral, BID, Rachna Burt MD, 500 mg at 10/30/17 0835 ??? aspirin enteric coated tablet 81 mg, 81 mg, oral, Daily, Rachna Burt MD, 81 mg at ??? atorvastatin (LIPITOR) tablet 20 mg, 20 mg, oral, Daily, Rachna Burt MD, 20 mg at ??? bisacodyl (DULCOLAX) suppository 10 mg, 10 mg, rectal, Daily PRN, Jason Shore Jr. OWNER/PHOTOGRAPHER, 10 mg at 10/29/172138 ??? bisacodyl EC (DULCOLAX EC) tablet 5 mg, 5 mg, oral, BID PRN, Jason Shore Jr., NP, 5 mg at 10/29/17 1329 ??? budesonide-formoterol (SYMBICORT) 80-4.5 mcg/actuation inhaler 1 puff, 1 puff, inhalation, BID (RT), Rachna Burt MD, 1 puff at 10/30/17 0826 ??? bumetanide (BUMEX) tablet 0.5 mg, 0.5 mg, oral, Daily, Александр Espino Jr., MD, 0.5 mg at 10/30/17 0841 ??? chlorhexidine (PERIDEX) 0.12 % solution 5 mL, 5 mL, mouth/throat, BID, Rachna Burt MD, 5 mL at 10/30/17 0836 ??? collagenase 250 unit/gram ointment, , topical, Daily, Rachna Burt MD ??? dextrose (GLUTOSE) 40 % gel 15 g, 15 g, oral, Q15 Min PRN, Jason Shore Jr., OWNER/PHOTOGRAPHER ??? dextrose 50% (concentrated solution) CONCENTRATED solution 25 g, 25 g, intravenous, Q15 Min PRN, Jason Shore Jr., OWNER/PHOTOGRAPHER ??? diphenhydrAMINE (BENADRYL) tab/cap 25 mg, 25 mg, oral, TID PRN, Rachna Burt MD ??? docusate sodium (COLACE) capsule 100 mg, 100 mg, oral, BID, Jason Shore Jr., OWNER/PHOTOGRAPHER, 100 mg at 10/30/17 1309 ??? ergocalciferol (VITAMIN D) capsule 50,000 Units, 50,000 Units, oral, Weekly, Adma Pastor MD, 50,000 Units at 10/26/17 0802 ??? glucagon injection 1 mg, 1 mg, intramuscular, Q30 Min PRN, Jason Shore Jr., NP ??? ipratropium-albuterol (DUO-NEB) 0.5-2.5 mg/3 mL nebulizer solution 3 mL, 3 mL, nebulization, Q4H PRN (RT), Rachna Burt MD ??? lidocaine (LIDODERM) 5 % patch 1 patch, 1 patch, transdermal, Daily, Jason Shore Jr., NP, 1patch at 10/30/17 0836 ??? metoprolol (LOPRESSOR) tablet 12.5 mg, 12.5 mg, oral, BID, Rachna Burt MD, 12.5 mg at 10/30/17833 ??? miconazole 2 % powder, , topical, BID, Rachna Burt MD ??? ondansetron (ZOFRAN) tablet 4 mg, 4 mg, oral, Q4H PRN, Rachna Burt MD ??? oxyCODONE (ROXICODONE) tablet 10 mg, 10 mg, oral, Q4H PRN, Rachna Burt MD ??? oxyCODONE (ROXICODONE) tablet 5 mg, 5 mg, oral, Q4H PRN, Rachna Burt MD ??? pantoprazole DR (PROTONIX) extended release tablet 40 mg, 40 mg, oral, Daily, Rachna Burt MD, 40 mg at 10/30/17833 ??? 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 senna (SENOKOT) tablet 1 tablet, 1 tablet, oral, Daily, Rachna Burt MD, 1 tablet at 10/30/17834 ??? tamsulosin (FLOMAX) extended release capsule 0.4 mg, 0.4 mg, oral, Nightly, Rachna Burt MD, 0.4 mg at 10/29/172137 ??? zinc sulfate (ZINCATE) capsule 220 mg, 220 mg, oral, Daily, Rachna Burt MD, 220 mg at 10/30/17834 ??? zolpidem (AMBIEN) tablet 5 mg, 5 mg, oral, Nightly PRN, Rachna Burt MD, 5 mg at 10/29/172138 Current functional status: PT Functional Mobility: WC<-->mat with max assist x1-2 via slide board, once to left side andonce to right side, performs seated SARAH LE and balance exercises, sit<-->supine with max assist x1, sidelying LE exercises attempted, sit<-->stand x3 trials in // bars with max-total assist x2 w/ SARAH UE support (unable to functionally stand). Pt fatigues easily today, and expresses low back pain with prolonged unsupported sitting on edge of mat. Pt repositioned, but was too painful toroll him into supine from his side, so sidelying exercises performed and then pt repositioned seated edge of mat. RN notified, meds given. Pt able to perform active assisted heel slides w/ towels under feet, did well w/ ball tossing, and demonstrates very decreased SARAH trunk rotation. Pt is max assist x2 for slide board transfers and sit<-->stand, and max assist x1 for bed mobility. Pt remains highly motivated and cooperative. Continue per plan of care. OT Functional Mobility: Pt. completes supine to sit max assist and 2 person DEP for sit to stand with manual stand aid OT Self Care: DEP to minimal assist for self care with 1 to 2 people. Pt using rolling shower chairwith sarah supports and manual stand aid 2 person with LE dressing. Pt demonstrates general decreasedbalance, endurance, strength and sensation. Pt will benefit from continued skilled OT to promote IND toward goals. OT Cognition: Appears WNL OT Communication: decreased vocal strength at times. TOWING PILOT Cognition: WFL TOWING PILOT Communication: WFL TOWING PILOT Swallowing: WFL: Regular consistency with thin liquids, tolerating diet well Patient/caregiver goals:Patient and Family Goals: to return home with assistance Pre hospital Living environment: Home Setting: Split level home Prehospital Lives With: Spouse;Adult children REVIEW OF DATA: Recent Results (from the past 24 hour(s)) Glucose POC Collection Time: 10/29/17 4:58 PM Result Value Ref Range Glucose, POC, bld 112 70 - 140 mg/dL Comprehensive metabolic panel Collection Time: 10/30/17 4:01 AM Result Value Ref Range Sodium 133 (L) 135 - 145 mmol/L Potassium 4.1 3.3 - 4.9 mmol/L CO2 25 22 - 32 mmol/L BUN 15 8 - 25 mg/dL Glucose 97 70 - 199 mg/dL Creatinine 0.91 0.80 - 1.30 mg/dL Calcium 8.9 8.5 - 10.3 mg/dL Chloride 98 97 - 110 mmol/L Albumin 3.2 (L) 3.5 - 5.0 g/dL AST 27 10 - 50 Units/L ALT 47 7 - 55 Units/L Alk phos 120 40 - 130 Units/L Bilirubin 0.4 0.1 - 1.2 mg/dL Protein, pl 5.7 (L) 6.5 - 8.5 g/dL Anion Gap 10 2 - 15 mmol/L Phosphorus Collection Time: 10/30/17 4:01 AM Result Value Ref Range Phosphorus, pl 3.1 2.3 - 4.5 mg/dL eGFR Collection Time: 10/30/17 4:01 AM Result Value Ref Range GFR 86 mL/min/1.73 m2 Glucose POC Collection Time: 10/30/17 6:44 AM Result Value Ref Range Glucose, POC, bld 98 70 - 140 mg/dL REVIEW OF IMAGING: Imaging (Last 96 hours) 10/22 1037 XR Chest 1 Vw REHABILITATION DIAGNOSIS: Impairment Code Group: Debility REHAB PLAN OF CARE: The Interdisciplinary Team will work collaboratively to address the patient problems and goals to be managed by the Individualized Interdisciplinary Plan of Care. Rehabilitation Precautions/Restrictions: Falls;MRSA colonization;Isolation Multi-Disciplinary Problems Active Problems Problem: Health Behavior: Start Date: 10/24/17 Goal Start Date End Date Understanding of discharge needs will improve 10/24/17 -- Goal Intervention Frequency Start Date End Date Discuss information regarding discharge instructions -- 10/24/17 -- Goal Intervention Frequency Start Date End Date Identify discharge learning needs (meds, wound care, etc) -- 10/24/17 -- Goal Intervention Frequency Start Date End Date Collaborate with case management -- 10/24/17 -- Intervention Details: (Coordinate discharge planning if the patient needs post- hospital services onphysician order or complex needs related to functional status, cognitive ability, or social supportsystem) Goal Intervention Frequency Start Date End Date Arrange for needed discharge resources and transportation as appropriate -- 10/24/17 -- Goal Intervention Frequency Start Date End Date Identify discharge barriers -- 10/24/17 -- Goal Intervention Frequency Start Date End Date Collaborate with spanish interpreter -- 10/24/17 -- Problem: Lack of Knowledge: Start Date: 10/25/17 Goal Start Date End Date Ability to state ways to decrease the risk of falls will improve 10/25/17 -- Goal Intervention Frequency Start Date End Date Teach fall prevention measures -- 10/25/17 -- Goal Intervention Frequency Start Date End Date Teach information regarding appropriate environmental changes -- 10/25/17 -- Problem: Safety: Start Date: 10/25/17 Goal Start Date End Date Will remain free from falls 10/25/17 -- Goal Intervention Frequency Start Date End Date Assess risk factors for falls -- 10/25/17 -- Intervention Details: (including medications) Goal Intervention Frequency Start Date End Date Implement fall prevention measures -- 10/25/17 -- Goal Intervention Frequency Start Date End Date Collaborate with other disciplines -- 10/25/17 -- Intervention Details: (PT, OT, Pharmacy, MD, etc.) Goal Start Date End Date Will remain free from injury from falls 10/25/17 -- Goal Intervention Frequency Start Date End Date Provide safe environment for conduction of activities of daily living -- 10/25/17 -- Goal Start Date End Date Will remain free from falls and injury in home environment 10/25/17 -- Goal Intervention Frequency Start Date End Date Assess environmental risk factors -- 10/25/17 -- Problem: Activity: Start Date: 10/25/17 Goal Start Date End Date Mobility will improve 10/25/17 -- Goal Intervention Frequency Start Date End Date Encourage mobilization to extent of ability -- 10/25/17 -- Goal Intervention Frequency Start Date End Date Perform repositioning -- 10/25/17 -- Goal Intervention Frequency Start Date End Date Collaborate with physical therapy -- 10/25/17 -- Problem: Lack of Knowledge: Start Date: 10/25/17 Goal Start Date End Date Understanding of ways to prevent future skin breakdown will improve 10/25/17 -- Goal Intervention Frequency Start Date End Date Discuss precautions to protect skin integrity -- 10/25/17 -- Goal Intervention Frequency Start Date End Date Discuss treatment plan for related conditions -- 10/25/17 -- Goal Start Date End Date Ability to identify appropriate dietary choices will improve 10/25/17 -- Goal Intervention Frequency Start Date End Date Discuss dietary adjustments -- 10/25/17 -- Problem: Nutritional: Start Date: 10/25/17 Goal Start Date End Date Dietary intake will improve 10/25/17 -- Goal Intervention Frequency Start Date End Date Assess nutritional status -- 10/25/17 -- Goal Intervention Frequency Start Date End Date Collaborate with dietitian -- 10/25/17 -- Goal Intervention Frequency Start Date End Date Assist appropriate dietary choices -- 10/25/17 -- Goal Start Date End Date Ability to maintain a balanced intake and output will improve 10/25/17 -- Goal Intervention Frequency Start Date End Date Assess intake and output -- 10/25/17 -- Problem: Skin Integrity: Start Date: 10/25/17 Goal Start Date End Date Risk for impaired skin integrity will decrease 10/25/17 -- Goal Intervention Frequency Start Date End Date Identify risk factors for impaired skin integrity and/or pressure injuries -- 10/25/17 -- Goal Intervention Frequency Start Date End Date Monitor medication effects -- 10/25/17 -- Goal Intervention Frequency Start Date End Date Implement precautions to protect skin integrity -- 10/25/17 -- Goal Intervention Frequency Start Date End Date Use moisturizing agent to dry skin -- 10/25/17 -- Goal Intervention Frequency Start Date End Date Perform cleansing of skin when soiled -- 10/25/17 -- Goal Intervention Frequency Start Date End Date Provide pressure-relief bed or mattress -- 10/25/17 -- Goal Start Date End Date Ability to demonstrate warm and dry skin will improve 10/25/17 -- Goal Intervention Frequency Start Date End Date Monitor skin integrity, appearance and/or temperature -- 10/25/17 -- Goal Start Date End Date Circulation will improve to fullest extent possible 10/25/17 -- Goal Intervention Frequency Start Date End Date Assess circulation, sensation and/or motion of extremity -- 10/25/17 -- Problem: Bladder/Voiding Start Date: 10/25/17 Goal Start Date End Date LTG - Patient will achieve acceptable level of continence 10/25/17 -- Goal Start Date End Date STG - Patient demonstrates no accidents 10/25/17 -- Goal Intervention Frequency Start Date End Date Encourage toileting PRN 10/25/17 -- Goal Intervention Frequency Start Date End Date Educate patient about medications PRN 10/25/17 -- Problem: Bowel Elimination Start Date: 10/25/17 Goal Start Date End Date LTG - Patient will have regular and routine bowel evacuation 10/25/17 -- Goal Start Date End Date LTG - Patient will complete bowel elimination 10/25/17 -- Goal Start Date End Date STG - Patient maintains skin integrity 10/25/17 -- Goal Intervention Frequency Start Date End Date Educate patient about ostomy appliances, correct application, protection of skin PRN 10/25/17 -- Goal Start Date End Date STG - Patient will verbalize signs and symptoms of constipation and how to prevent/alleviate 10/25/17 -- Goal Intervention Frequency Start Date End Date Encourage use of aids (stool softener, laxative, suppository) PRN 10/25/17 -- Goal Intervention Frequency Start Date End Date Encourage adjustment and monitoring of fluid intake PRN 10/25/17 -- Goal Intervention Frequency Start Date End Date Teach patient about symptoms of impaction PRN 10/25/17 -- Goal Intervention Frequency Start Date End Date Educate patient about effect of fluid intake on bowel movement PRN 10/25/17 -- Goal Intervention Frequency Start Date End Date Educate patient about adequate fluid intake PRN 10/25/17 -- Goal Start Date End Date STG - Patient will be continent of stool 10/25/17 -- Goal Start Date End Date STG - Patient verbalizes knowledge about relationship between diet, fluid intake, activity and medication on constipation 10/25/17 -- Goal Intervention Frequency Start Date End Date Educate patient about medications PRN 10/25/17 -- Goal Intervention Frequency Start Date End Date Educate patient about adequate fluid intake PRN 10/25/17 -- Problem: Breathing Start Date: 10/25/17 Goal Start Date End Date STG - Respiratory rate and effort will be within normal limits for the patient 10/25/17 -- Goal Intervention Frequency Start Date End Date Provide oxygen therapy as ordered PRN 10/25/17 -- Goal Intervention Frequency Start Date End Date Monitor oygen saturation PRN 10/25/17 -- Goal Intervention Frequency Start Date End Date Encourage incentive spirometer x 10 each hour while awake PRN 10/25/17 -- Goal Intervention Frequency Start Date End Date Encourage/perform oral hygiene as appropriate PRN 10/25/17 -- Goal Intervention Frequency Start Date End Date Collaborate with respiratory therapy to administer medications/treatments PRN 10/25/17 -- Goal Start Date End Date STG - Patient/family will be able to verbalize oxygen safety precautions 10/25/17 -- Goal Intervention Frequency Start Date End Date Educate patient about oxygen PRN 10/25/17 -- Goal Start Date End Date STG - Patient will utilize incentive spirometer 10/25/17 -- Goal Intervention Frequency Start Date End Date Encourage incentive spirometer x 10 each hour while awake PRN 10/25/17 -- Goal Intervention Frequency Start Date End Date Encourage use of incentive spirometer PRN 10/25/17 -- Goal Start Date End Date STG - Patient performs or directs assisted coughing 10/25/17 -- Goal Intervention Frequency Start Date End Date Instruct on coughing and deep breathing PRN 10/25/17 -- Goal Intervention Frequency Start Date End Date Educate patient about forced cough PRN 10/25/17 -- Goal Intervention Frequency Start Date End Date Teach patient about assistive cough PRN 10/25/17 -- Problem: Pain Start Date: 10/25/17 Goal Start Date End Date [facility] - Pain is manageable through therapies 10/25/17 -- Goal Start Date End Date [facility] - Patient will verbalize an acceptable level of pain 10/25/17 -- Problem: OT Misc Start Date: 10/25/17 Goal Start Date End Date [facility] [place] [facility] 10/25/17 -- Goal Details: Pt to dress modified IND Goal Start Date End Date [facility] [place] 2 10/25/17 -- Goal Details: Pt to groom modified IND Goal Start Date End Date [facility] [place] 3 10/25/17 -- Goal Details: Pt to bathe with transfer modified IND Goal Start Date End Date [facility] [place] 4 10/25/17 -- Goal Details: Pt to toilet with transfer modified IND Goal Start Date End Date [facility] [place] 5 10/25/17 -- Goal Details: Pt to complete UE HEP with IND to promote IND with self care and functional transfers Problem: Cognitive: Start Date: 10/25/17 Goal Start Date End Date [facility] 1 10/25/17 -- Goal Details: Patient will execute multiple elements of a task with supervision Goal Start Date End Date [facility] 2 10/25/17 -- Goal Details: Patient will increase problem solving to complete tasks at 90% or with supervision Problem: Physical Regulation: Start Date: 10/25/17 Goal Start Date End Date [facility] 3 10/25/17 -- Goal Details: Patient will increase general strength/coordination through various exercises with supervision until disch Problem: Respiratory: Start Date: 10/25/17 Goal Start Date End Date [facility] 4 10/25/17 -- Goal Details: Patient will maintain/increase SPO2 by 1% in at least one session prior to disch Goal Start Date End Date [facility] 5 10/25/17 -- Goal Details: Patient will increase pulmonary function through various exercises with supervision until disch Problem: PT [facility] [place] Start Date: 10/25/17 Goal Start Date End Date [facility] [place] 1 10/25/17 -- Goal Details: Pt will roll SARAH and supine<-->sit EOB with supervision and bedrails as needed.Pt will sit<-->stand with minimum assist and appropriate assistive device. Pt will transfer bed<-->wheelchair/chair with minimum assist and appropriate assistive device. Goal Start Date End Date [facility] [place] 2 10/25/17 -- Goal Details: Pt will ambulate 150' w/ minimum assist and appropriate assistive device. Pt will ambulate up/down 4 stairs with mod assist and SARAH rails. Goal Start Date End Date [facility] [place] 3 10/25/17 -- Goal Details: Pt will propel WC 150' with supervision and extra time. Goal Start Date End Date [facility] [place] 4 10/25/17 -- Goal Details: Pt will complete SARAH LE HEP x15 reps with supervision. Goal Start Date End Date [facility] [place] 5 10/25/17 -- Goal Details: Pt and/or family will verbalize and demonstrate understanding of pt's safety and mobility needs upon discharge. * Adam Pastor MD - 10/30/2017 6:34 AM CDT Internal Medicine Progress Note Adam Pastor M.D. 10/30/2017 Patient Name: José Miguel Jang Admit Date: 10/24/2017 PCP: Briana Medeiros MD Consult requested by Dr Rachna Burt MD Patient Name: José Miguel Kramer Ludmila PCP: Briana Medeiros MD Date of admission: 10/24/2017 Date of Service: 10/30/2017 Reason for Consultation: Medical Management Had a better night. Slept more. Lido patch for back pain. Less edema today, advanced bumex to 0.5. Tolerates BiPAP. Continue aggressive pulm toilet. Dr Espino following. No fever, chills, chest pain,acute SOB. Diffusely weak. Tolerating eliquis. H/H low, but fairly stable. WBC 7. Glc normal, stopped metformin; A1c 4.7%. Stop SSI and accuchecks Bowel regimen. Vitals acceptable. Na 133, lower, recheck tomorrow. Watch vol status PMHx: Past Medical History: Diagnosis Date ??? A-fib (CMS/HCC) ??? A-fib (CMS/HCC) history ??? Chronic obstructive pulmonary disease (CMS/HCC) COPD ??? Coronary artery disease ??? Diabetes mellitus (CMS/HCC) ??? HX OTHER MEDICAL DJD ??? Hypertension PSurgHx: Past Surgical History: Procedure Laterality Date ??? BACK SURGERY ??? TOTAL HIP ARTHROPLASTY Bilateral ??? TRACHEOSTOMY All: Allergies Allergen Reactions ??? Penicillins Outpt Meds: Prescriptions Prior to Admission Medication Sig Dispense Refill Last Dose ??? acetaminophen (TYLENOL) 325 mg tablet Take 650 mg by mouth every 4 (four) hours as needed for pain. ??? albuterol (PROVENTIL,VENTOLIN) 2.5 mg/0.5 mL solution for nebulization Take 5 mg by nebulization every 6 (six) hours as needed. ??? amiodarone (PACERONE) 200 mg tablet Take 200 mg by mouth 2 (two) times a day. ??? apixaban (ELIQUIS) 5 mg tablet Take 5 mg by mouth 2 (two) times a day. ??? aspirin 81 mg chewable tablet Take 81 mg by mouth daily. ??? atorvastatin (LIPITOR) 20 mg tablet Take 20 mg by mouth daily. ??? bisacodyl (DULCOLAX) 10 mg suppository Insert 10 mg into the rectum every third day. ??? bumetanide (BUMEX) 0.5 mg tablet Take 0.25 mg by mouth daily. ??? chlorhexidine (PERIDEX) 0.12 % solution Apply 5 mL to the mouth or throat 2 (two) times a day. ??? diphenhydrAMINE (BENADRYL) 25 mg capsule Take 25 mg by mouth 3 (three) times a day as needed for itching. ??? docusate (COLACE) liquid 50 mg/5 mL Take 100 mg by mouth daily. ??? famotidine (PEPCID) 20 mg tablet Take 20 mg by mouth 2 (two) times a day. ??? insulin lispro (HumaLOG) 100 unit/mL injection Inject 0-10 Units under the skin 4 (four) times a day (with meals and nightly). Low dose sliding scale ??? LORazepam (ATIVAN) 2 mg/mL injection Infuse 1 mg into a venous catheter every 6 (six) hours as needed for anxiety. ??? metoprolol (LOPRESSOR) 25 mg tablet Take 12.5 mg by mouth 2 (two) times a day. ??? ondansetron (ZOFRAN) 4 mg tablet Take 4 mg by mouth every 4 (four) hours as needed for nausea or vomiting. ??? oxyCODONE (ROXICODONE) 5 mg immediate release tablet Take 5 mg by mouth every 4 (four) hours asneeded. ??? oxyCODONE (ROXICODONE) 5 mg immediate release tablet Take 10 mg by mouth every 4 (four) hours as needed (prn pain scale 7-10). ??? polyethylene glycol (MIRALAX) 17 gram packet Take 17 g by mouth daily as needed. ??? senna (SENOKOT) 8.6 mg tablet Take 1 tablet by mouth daily. ??? sulfamethoxazole-trimethoprim (BACTRIM,SEPTRA) 800-160 mg per tablet Take 1 tablet by mouth 2 (two) times a day. ??? tamsulosin (FLOMAX) 0.4 mg extended release capsule Take 0.4 mg by mouth nightly. ??? zolpidem (AMBIEN) 5 mg tablet Take 5 mg by mouth nightly as needed for sleep. ??? aspirin (ASPIRIN LOW DOSE) 81 mg tablet take 1 Tablet (81MG) by oral route every day 0 Taking ??? budesonide-formoterol (SYMBICORT) 80-4.5 mcg/actuation inhaler Inhale 1 puff 2 (two) times a day. Taking ??? cyanocobalamin, vitamin B-12, 500 mcg lozenge Take by mouth. Taking ??? diclofenac DR (VOLTAREN) 75 mg EC tablet take 2 Tablet (150MG) by oral route every day (Patientnot taking: Reported on 02/22/2017 ) 0 Not Taking ??? doxepin (SINEquan) 25 mg capsule TAKE 1 CAPSULE TWICE A DAY Taking ??? ferrous fumarate 325 mg (106 mg iron) tablet Take 2 tablets by mouth daily. Taking ??? furosemide (LASIX) 20 mg tablet take 1 tablet by oral route every day (Patient not taking: Reported on 02/22/2017 ) 0 0 Not Taking ??? metFORMIN (GLUCOPHAGE) 500 mg tablet Take 500 mg by mouth 2 (two) times a day with meals. Taking ??? pantoprazole DR (PROTONIX) 40 mg EC tablet take 1 tablet by oral route every day 0 0 Taking ??? potassium chloride ER (potassium chloride ER) 10 mEq CR tablet TAKE ONE TABLET BY MOUTH ONCE DAILY WITH FOOD (Patient not taking: Reported on 02/22/2017 ) 30 0 Not Taking Inpatient Meds: Current Facility-Administered Medications: ??? acetaminophen (TYLENOL) tablet 650 mg, 650 mg, oral, Q4H PRN, Rachna Burt MD, 650 mg at 10/30/17 0644 ??? albuterol (PROVENTIL,VENTOLIN) 2.5 mg/0.5 mL nebulizer solution 5 mg, 5 mg, nebulization, Q6H PRN, Rachna Burt MD ??? amiodarone (PACERONE) tablet 200 mg, 200 mg, oral, BID, Rachna Burt MD, 200 mg at ??? apixaban (ELIQUIS) tablet 5 mg, 5 mg, oral, BID, Rachna Burt MD, 5 mg at 10/29/172138 ??? ascorbic acid (VITAMIN C) tablet/chewable tablet 500 mg, 500 mg, oral, BID, Rachna Burt MD, 500 mg at 10/29/172138 ??? aspirin enteric coated tablet 81 mg, 81 mg, oral, Daily, Rachna Burt MD, 81 mg at ??? atorvastatin (LIPITOR) tablet 20 mg, 20 mg, oral, Daily, Rachna Burt MD, 20 mg at ??? bisacodyl (DULCOLAX) suppository 10 mg, 10 mg, rectal, Daily PRN, Jason Shore Jr., OWNER/PHOTOGRAPHER, 10 mg at 10/29/172138 ??? bisacodyl EC (DULCOLAX EC) tablet 5 mg, 5 mg, oral, BID PRN, Jason Shore Jr., NP, 5 mg at 10/29/17 1329 ??? budesonide-formoterol (SYMBICORT) 80-4.5 mcg/actuation inhaler 1 puff, 1 puff, inhalation, BID (RT), Rachna Burt MD, 1 puff at 10/29/172107 ??? bumetanide (BUMEX) tablet 0.5 mg, 0.5 mg, oral, Daily, Александр Espino Jr., MD, 0.5 mg at 10/29/17 0843 ??? chlorhexidine (PERIDEX) 0.12 % solution 5 mL, 5 mL, mouth/throat, BID, Rachna Burt MD, 5 mL at 10/29/172140 ??? collagenase 250 unit/gram ointment, , topical, Daily, Rachna Burt MD ??? dextrose (GLUTOSE) 40 % gel 15 g, 15 g, oral, Q15 Min PRN, Jason Shore Jr., NP ??? dextrose 50% (concentrated solution) CONCENTRATED solution 25 g, 25 g, intravenous, Q15 Min PRN, Jason Shore Jr., NP ??? diphenhydrAMINE (BENADRYL) tab/cap 25 mg, 25 mg, oral, TID PRN, Rachna Burt MD ??? docusate sodium (COLACE) capsule 100 mg, 100 mg, oral, BID, Jason Shore Jr., NP, 100 mg at 10/29/172139 ??? ergocalciferol (VITAMIN D) capsule 50,000 Units, 50,000 Units, oral, Weekly, Adam Pastor MD, 50,000 Units at 10/26/17 0802 ??? glucagon injection 1 mg, 1 mg, intramuscular, Q30 Min PRN, Jason Shore Jr., NP ??? insulin lispro (HumaLOG) injection 1-2 Units, 1-2 Units, subcutaneous, Nightly, Jason Lilly NP ??? insulin lispro (HumaLOG) injection 1-3 Units, 1-3 Units, subcutaneous, BID with meals (bkfst, lunch), Jason Shore Jr., NP, Stopped at 10/30/17 0645 ??? ipratropium-albuterol (DUO-NEB) 0.5-2.5 mg/3 mL nebulizer solution 3 mL, 3 mL, nebulization, Q4H PRN (RT), Rachna Burt MD ??? lidocaine (LIDODERM) 5 % patch 1 patch, 1 patch, transdermal, Daily, Jason Shore Jr., OWNER/PHOTOGRAPHER, Stopped at 10/29/172139 ??? metoprolol (LOPRESSOR) tablet 12.5 mg, 12.5 mg, oral, BID, Rachna Burt MD, 12.5 mg at 10/29/172137 ??? miconazole 2 % powder, , topical, BID, Rachna Burt MD ??? ondansetron (ZOFRAN) tablet 4 mg, 4 mg, oral, Q4H PRN, Rachna Burt MD ??? oxyCODONE (ROXICODONE) tablet 10 mg, 10 mg, oral, Q4H PRN, Rachna Burt MD ??? oxyCODONE (ROXICODONE) tablet 5 mg, 5 mg, oral, Q4H PRN, Rachna Burt MD ??? pantoprazole DR (PROTONIX) extended release tablet 40 mg, 40 mg, oral, Daily, Rachna Burt MD, 40 mg at 10/29/17842 ??? polyethylene glycol (MIRALAX) packet 17 g, 17 g, oral, BID PRN, Jason Shore Jr., OWNER/PHOTOGRAPHER, 17 g at 10/29/17 0842 ??? senna (SENOKOT) tablet 1 tablet, 1 tablet, oral, Daily, Rachna Burt MD, 1 tablet at 10/29/17842 ??? tamsulosin (FLOMAX) extended release capsule 0.4 mg, 0.4 mg, oral, Nightly, Rachna Burt MD, 0.4 mg at 10/29/172137 ??? zinc sulfate (ZINCATE) capsule 220 mg, 220 mg, oral, Daily, Rachna Burt MD, 220 mg at 10/29/1743 ??? zolpidem (AMBIEN) tablet 5 mg, 5 mg, oral, Nightly PRN, Rachna Burt MD, 5 mg at 10/29/172138 SocHx: Social History Substance Use Topics ??? Smoking status: Former Smoker ??? Smokeless tobacco: Never Used ??? Alcohol use No FamHx: History reviewed. No pertinent family history. Review of Systems History from patient and medical records General positive for - fatigue ENT positive for - dysphagia CV positive for - chest pain, dyspnea on exertion, edema, irregular heartbeat and shortness of breath Respiratory positive for - pleuritic pain and shortness of breath GI positive for - change in bowel habits positive for - change in urinary stream MS positive for - gait disturbance, joint pain, joint stiffness and muscular weakness Neuro positive for - weakness All Other ROS Negative BP 127/72 (BP Location: Right arm, Patient Position: Lying) Pulse 89 Temp 36.4 ??C (97.6 ??F) (Oral) Resp 20 Ht 180.3 cm (5' 11 ) Wt 93 kg (205 lb 0.4 oz) SpO2 100% BMI 28.60 kg/m?? Intake/Output Summary (Last 24 hours) at 10/30/17 0715 Last data filed at 10/29/17 2225 Gross per 24 hour Intake 750 ml Output 625 ml Net 125 ml Wt Readings from Last 3 Encounters: 10/29/17 93 kg (205 lb 0.4 oz) 10/24/17 88.9 kg (196 lb) 02/22/17 116.1 kg (256 lb) General appearance Alert, no distress Head Normocephalic, without obvious abnormality, atraumatic Throat Oropharynx clear Neck Supple. Trach stoma healing Lungs Clear to auscultation bilaterally, diminished bases Chest wall +tenderness Heart Regular rate and rhythm Abdomen Soft, non-tender. Bowel sounds normal. G tube Extremities + edema Neurologic Diffusely weak CBC: Recent Labs Lab Units 10/28/17 0454 10/26/17 0403 10/25/17 0540 WHITE BLOOD CELLS K/cumm 7.8 9.2 8.0 HEMOGLOBIN g/dL 9.0* 9.5* 9.1* HEMATOCRIT % 29.4* 31.1* 30.3* PLATELETS K/cumm 156 152 155 BMP: Recent Labs Lab Units 10/30/17 0644 10/30/17 0401 10/29/17 1658 10/29/17 0307 10/28/17 0454 SODIUM mmol/L -- 133* -- -- 136 -- 134* POTASSIUM PLASMA mmol/L -- 4.1 -- -- 4.2 -- 4.3 CHLORIDE mmol/L -- 98 -- -- 97 -- 98 CO2 mmol/L -- 25 -- -- 27 -- 26 ANIONGAP mmol/L -- 10 -- -- 12 -- 10 GLUCOSE mg/dL -- 97 -- -- 94 -- 97 POC GLUCOSE MONITOR mg/dL 98 -- 112 < > -- < > -- BUN SERUM mg/dL -- 15 -- -- 15 -- 15 CREATININE mg/dL -- 0.91 -- -- 0.94 -- 0.86 CALCIUM mg/dL -- 8.9 -- -- 8.4* -- 8.9 ALBUMIN g/dL -- 3.2* -- -- 3.0* -- 3.0* ALK PHOS Units/L -- 120 -- -- 111 -- 106 ALT Units/L -- 47 -- -- 45 -- 47 AST Units/L -- 27 -- -- 22 -- 20 BILIRUBIN TOTAL mg/dL -- 0.4 -- -- 0.3 -- 0.4 < > = values in this interval not displayed. EKG: No results found for this or any previous visit. RADIOLOGY: No results found. 1. Debility: Complicated recent medical course. Comprehensive rehab program. 2. L1 abscess s/p debridement with MRSA empyema: Pain control. F/u with surgery team. Complete course of bactrim. Chest tube out 3. Respiratory failure: S/p trach, decannulated. Aggressive pulm toilet. BDs/inhaled steroids. Dr Espino following. NIPPV as required. H/o COPD and prior tobacco abuse. 4. Dysphagia: S/p PEG. TOWING PILOT, RD f/u. Aspiration precautions 5. Dm2: A1c 4.7%. Metformin held. SSI, accuchecks. RD eval. 6. CAD: ASA, statin, BBlocker 7. HTN: Metoprolol, bumex 8. Afib: Eliquis, amio, metoprolol 9. Urinary retention: Flomax, monitor UOP 10. Dyslipid; Statin 11. Anemia: ACD and ABLA. Monitor cbc, transfuse for hgb under 7 or if symptomatic. Thank you for involving me in this patient's care. I will continue to follow along with you. ?? DVT Prophylaxis: Eliquis ?? GI prophylaxis: PPI ?? Code Status Full Code 35 min were spent in the care of this patient today; this may have included family conferences, nursing conferences and discussion with any consultants Adam Pastor M.D. * Jason Shore Jr., OWNER/PHOTOGRAPHER - 10/29/2017 7:38 AM CDT [facility] Rehabilitation Medicine Progress Note NAME: José Miguel Jang AGE: 66 y.o. : 1950 Date of Note: 10/29/2017 REHABILITATION PROGRESS NOTE Physician Physical Assessment/ Progress Note Rehab Impairment Code: Impairment Code Group: Debility Date of onset: Date of Onset: 07/29/17 Date of admission: 10/24/2017 Subjective: Did not sleep well. Could not get comfortable last night. Adding lido patch to back. Continue turing q 2 hours. Max assist with slide board transfer. Low endurance. Tolerating BiPAP. Generalized weakness. Back incision c/d/i. Wound care following. Continent of bowel and bladder. Bowel regime. Trachstoma. On bactrim for stenotrophomonas maltophilia pna. Pulmonology following. On eliquis. Glucose overall controlled. Accuchecks BID. IM following. Increased edema today. IM increasing bumex. No fever chills, chest pain , or acute sob. PHYSICAL EXAMINATION: Vitals: 10/28/17 1942 10/28/17200910/29/17 0255 10/29/17 0635 BP: 136/74 109/76 BP Location: Right arm Patient Position: Lying Pulse: 89 86 Resp: 18 Temp: 36.3 ??C (97.4 ??F) TempSrc: Axillary SpO2: 96% 100% 98% Weight: Height: Physical exam:?? GENERAL: Pleasant and in no acute distress MENTAL STATUS: ??Awake, alert and oriented to person, place and time with normal attention span, insight, and concentration. ??Naming and repetition are normal. ??Remote and recent memory intact. ??Fund of knowledge is appropriate. SPEECH: ??Fluent, non-dysarthric, no aphasia noted CRANIAL NERVES: Visual herrera are full on confrontation. ??Pupils are equally round and reactive tolight??bilaterally. Extraocular movements are??full and intact. No nystagmus is noted. ??There is no loss of sensation over the face. ??There is no facial weakness or asymmetry. ??Hearing intact bilaterally to finger rubbing. Uvula and palate elevate in the midline. Shoulder shrug is symmetric. ??Tongue protrudes in the midline. MOTOR: Generalized weakness. Moves all extremities. BL LE: hip flexors 3/5, knee extension and flexion 4/5, BL DF 3/5 Bulk and tone are nomal. ??No abnormal movements are noted. REFLEXES: 1+ and symmetric in bilateral upper extremities. SENSORY: Intact to light??touch in all four extremities.?No extinction with bilateral stimulation. COORDINATION: ??Normal GAIT AND STATION: Not tested, per therapy notes CARDIOVASCULAR: Regular rate and rhythm. ??No murmurs, rubs, gallops or carotid bruits. LUNGS: Clear to auscultation bilaterally. No wheezes, rhonchi or rales. ABDOMEN: ??Soft and non-tender.?Normal bowel sounds were noted. EXTREMITIES: ??No edema, back incision dehisced IMPRESSION: Rehab Diagnosis: Respiratory Failure Impairment Code Group: Debility Physician Problem List/ Comorbidities: Active Problems: Chronic atrial fibrillation ([facility]) Former smoker COPD (chronic obstructive pulmonary disease) ([facility]) Hypercapnic respiratory failure ([facility]) Diskitis Pneumonia Hyponatremia MEDICAL PLAN: 1. Debility: ??Complicated recent medical course. ??Comprehensive inpatient rehabilitation, family training, structured environment. 2. 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 ??F/u with surgery team. ??Complete course of bactrim. ??Chest tube out. Wound care following back incision. 3. Respiratory failure: ??S/p trach, decannulated. ??Aggressive pulm toilet. ??BDs/inhaled steroids. ??Dr Espino following. NIPPV as required. ??H/o COPD and prior tobacco abuse. 4. Dysphagia: ??S/p PEG. ??TOWING PILOT, RD f/u. ??Aspiration precautions 5. Dm2: ??A1c 4.7%: prudent diet, diabetic education. ??Metformin, SSI, accuchecks. ??RD eval. 6. CAD: ??ASA, statin, BBlocker 7. HTN: ??Metoprolol, bumex 8. Afib: ??Eliquis, amio, metoprolol 9. Urinary retention: ??Flomax, monitor UOP 10. Dyslipid; ??Statin 11. Anemia: ??ACD and ABLA. ??Monitor cbc, transfuse for hgb under 7 or if symptomatic. 12. Nutrition: rd consult. ?? * DVT prophylaxsis: eliquis * GI prophylaxsis: ppi CODE STATUS: Full Code ALLERGY: Allergies Allergen Reactions ??? Penicillins Current Facility-Administered Medications: ??? acetaminophen (TYLENOL) tablet 650 mg, 650 mg, oral, Q4H PRN, Rachna Burt MD, 650 mg at 10/29/17 0626 ??? albuterol (PROVENTIL,VENTOLIN) 2.5 mg/0.5 mL nebulizer solution 5 mg, 5 mg, nebulization, Q6H PRN, Rachna Burt MD ??? amiodarone (PACERONE) tablet 200 mg, 200 mg, oral, BID, Rachna Burt MD, 200 mg at ??? apixaban (ELIQUIS) tablet 5 mg, 5 mg, oral, BID, Rachna Burt MD, 5 mg at 10/28/172011 ??? ascorbic acid (VITAMIN C) tablet/chewable tablet 500 mg, 500 mg, oral, BID, Rachna Burt MD, 500 mg at 10/28/172011 ??? aspirin enteric coated tablet 81 mg, 81 mg, oral, Daily, Rachna Burt MD, 81 mg at ??? atorvastatin (LIPITOR) tablet 20 mg, 20 mg, oral, Daily, Rachna Burt MD, 20 mg at ??? bisacodyl (DULCOLAX) suppository 10 mg, 10 mg, rectal, Daily PRN, Jason Shore Jr., OWNER/PHOTOGRAPHER ??? bisacodyl EC (DULCOLAX EC) tablet 5 mg, 5 mg, oral, BID PRN, Jason Shore Jr., OWNER/PHOTOGRAPHER ??? budesonide-formoterol (SYMBICORT) 80-4.5 mcg/actuation inhaler 1 puff, 1 puff, inhalation, BID (RT), Rachna Burt MD, 1 puff at 10/29/17 0636 ??? bumetanide (BUMEX) tablet 0.5 mg, 0.5 mg, oral, Daily, Александр Espino Jr., MD ??? chlorhexidine (PERIDEX) 0.12 % solution 5 mL, 5 mL, mouth/throat, BID, Rachna Burt MD, 5 mL at 10/28/172011 ??? collagenase 250 unit/gram ointment, , topical, Daily, Rachna Burt MD ??? dextrose (GLUTOSE) 40 % gel 15 g, 15 g, oral, Q15 Min PRN, Jason Shore Jr., OWNER/PHOTOGRAPHER ??? dextrose 50% (concentrated solution) CONCENTRATED solution 25 g, 25 g, intravenous, Q15 Min PRN, Jason Shore Jr., OWNER/PHOTOGRAPHER ??? diphenhydrAMINE (BENADRYL) tab/cap 25 mg, 25 mg, oral, TID PRN, Rachna Burt MD ??? docusate sodium (COLACE) capsule 100 mg, 100 mg, oral, BID, Jason Shore Jr., OWNER/PHOTOGRAPHER ??? ergocalciferol (VITAMIN D) capsule 50,000 Units, 50,000 Units, oral, Weekly, Adam Pastor MD, 50,000 Units at 10/26/17 0802 ??? glucagon injection 1 mg, 1 mg, intramuscular, Q30 Min PRN, Jason Shore Jr., OWNER/PHOTOGRAPHER ??? insulin lispro (HumaLOG) injection 1-2 Units, 1-2 Units, subcutaneous, Nightly, Jason Lilly, OWNER/PHOTOGRAPHER ??? insulin lispro (HumaLOG) injection 1-3 Units, 1-3 Units, subcutaneous, TID with meals, Jason Shore Jr., OWNER/PHOTOGRAPHER ??? ipratropium-albuterol (DUO-NEB) 0.5-2.5 mg/3 mL nebulizer solution 3 mL, 3 mL, nebulization, QID (RT), Александр Espino Jr., MD, 3 mL at 10/29/17 0635 ??? lidocaine (LIDODERM) 5 % patch 1 patch, 1 patch, transdermal, Daily, Jason Shore Jr., OWNER/PHOTOGRAPHER ??? metoprolol (LOPRESSOR) tablet 12.5 mg, 12.5 mg, oral, BID, Rachna Burt MD, 12.5 mg at 10/28/172011 ??? miconazole 2 % powder, , topical, BID, Rachna Burt MD ??? ondansetron (ZOFRAN) tablet 4 mg, 4 mg, oral, Q4H PRN, Rachna Burt MD ??? oxyCODONE (ROXICODONE) tablet 10 mg, 10 mg, oral, Q4H PRN, Rachna Burt MD ??? oxyCODONE (ROXICODONE) tablet 5 mg, 5 mg, oral, Q4H PRN, Rachna Burt MD ??? pantoprazole DR (PROTONIX) extended release tablet 40 mg, 40 mg, oral, Daily, Rachna Burt MD, 40 mg at 10/28/17 0854 ??? polyethylene glycol (MIRALAX) packet 17 g, 17 g, oral, BID PRN, Jason Shore Jr., OWNER/PHOTOGRAPHER ??? senna (SENOKOT) tablet 1 tablet, 1 tablet, oral, Daily, Rachna uBrt MD, 1 tablet at 10/28/17 0854 ??? tamsulosin (FLOMAX) extended release capsule 0.4 mg, 0.4 mg, oral, Nightly, Rachna Burt MD, 0.4 mg at 10/28/172011 ??? zinc sulfate (ZINCATE) capsule 220 mg, 220 mg, oral, Daily, Rachna Burt MD, 220 mg at 10/28/17 0854 ??? zolpidem (AMBIEN) tablet 5 mg, 5 mg, oral, Nightly PRN, Rachna Burt MD, 5 mg at 10/27/17 2366 Current functional status: PT Functional Mobility: WC<-->mat with max assist x1-2 via slide board, once to left side andonce to right side, performs seated SARAH LE and balance exercises, sit<-->supine with max assist x1, sidelying LE exercises attempted, sit<-->stand x3 trials in // bars with max-total assist x2 w/ SARAH UE support (unable to functionally stand). Pt fatigues easily today, and expresses low back pain with prolonged unsupported sitting on edge of mat. Pt repositioned, but was too painful toroll him into supine from his side, so sidelying exercises performed and then pt repositioned seated edge of mat. RN notified, meds given. Pt able to perform active assisted heel slides w/ towels under feet, did well w/ ball tossing, and demonstrates very decreased SARAH trunk rotation. Pt is max assist x2 for slide board transfers and sit<-->stand, and max assist x1 for bed mobility. Pt remains highly motivated and cooperative. Continue per plan of care. OT Functional Mobility: Pt. completes supine to sit max assist and 2 person DEP for sit to stand with manual stand aid OT Self Care: DEP to minimal assist for self care with 1 to 2 people. Pt using rolling shower chairwith sarah supports and manual stand aid 2 person with LE dressing. Pt demonstrates general decreasedbalance, endurance, strength and sensation. Pt will benefit from continued skilled OT to promote IND toward goals. OT Cognition: Appears WNL OT Communication: decreased vocal strength at times. TOWING PILOT Cognition: WFL TOWING PILOT Communication: WFL TOWING PILOT Swallowing: WFL: Regular consistency with thin liquids, tolerating diet well Patient/caregiver goals:Patient and Family Goals: to return home with assistance Pre hospital Living environment: Home Setting: Split level home Prehospital Lives With: Spouse;Adult children REVIEW OF DATA: Recent Results (from the past 24 hour(s)) Glucose POC Collection Time: 10/28/17 11:50 AM Result Value Ref Range Glucose, POC, bld 114 70 - 140 mg/dL Glucose POC Collection Time: 10/28/17 4:45 PM Result Value Ref Range Glucose, POC, bld 136 70 - 140 mg/dL Glucose POC Collection Time: 10/28/17 8:17 PM Result Value Ref Range Glucose, POC, bld 126 70 - 140 mg/dL Comprehensive metabolic panel Collection Time: 10/29/17 3:07 AM Result Value Ref Range Sodium 136 135 - 145 mmol/L Potassium 4.2 3.3 - 4.9 mmol/L CO2 27 22 - 32 mmol/L BUN 15 8 - 25 mg/dL Glucose 94 70 - 199 mg/dL Creatinine 0.94 0.80 - 1.30 mg/dL Calcium 8.4 (L) 8.5 - 10.3 mg/dL Chloride 97 97 - 110 mmol/L Albumin 3.0 (L) 3.5 - 5.0 g/dL AST 22 10 - 50 Units/L ALT 45 7 - 55 Units/L Alk phos 111 40 - 130 Units/L Bilirubin 0.3 0.1 - 1.2 mg/dL Protein, pl 5.3 (L) 6.5 - 8.5 g/dL Anion Gap 12 2 - 15 mmol/L TSH Collection Time: 10/29/17 3:07 AM Result Value Ref Range Thyroid Stimulating Hormone 3.710 0.300 - 4.200 mcIUnit/mL eGFR Collection Time: 10/29/17 3:07 AM Result Value Ref Range GFR 83 mL/min/1.73 m2 Glucose POC Collection Time: 10/29/17 6:22 AM Result Value Ref Range Glucose, POC, bld 108 70 - 140 mg/dL REVIEW OF IMAGING: Imaging (Last 96 hours) 10/22 1037 XR Chest 1 Vw REHABILITATION DIAGNOSIS: Impairment Code Group: Debility REHAB PLAN OF CARE: The Interdisciplinary Team will work collaboratively to address the patient problems and goals to be managed by the Individualized Interdisciplinary Plan of Care. Rehabilitation Precautions/Restrictions: Falls;MRSA colonization;Isolation Multi-Disciplinary Problems Active Problems Problem: Health Behavior: Start Date: 10/24/17 Goal Start Date End Date Understanding of discharge needs will improve 10/24/17 -- Goal Intervention Frequency Start Date End Date Discuss information regarding discharge instructions -- 10/24/17 -- Goal Intervention Frequency Start Date End Date Identify discharge learning needs (meds, wound care, etc) -- 10/24/17 -- Goal Intervention Frequency Start Date End Date Collaborate with case management -- 10/24/17 -- Intervention Details: (Coordinate discharge planning if the patient needs post- hospital services onphysician order or complex needs related to functional status, cognitive ability, or social supportsystem) Goal Intervention Frequency Start Date End Date Arrange for needed discharge resources and transportation as appropriate -- 10/24/17 -- Goal Intervention Frequency Start Date End Date Identify discharge barriers -- 10/24/17 -- Goal Intervention Frequency Start Date End Date Collaborate with spanish interpreter -- 10/24/17 -- Problem: Lack of Knowledge: Start Date: 10/25/17 Goal Start Date End Date Ability to state ways to decrease the risk of falls will improve 10/25/17 -- Goal Intervention Frequency Start Date End Date Teach fall prevention measures -- 10/25/17 -- Goal Intervention Frequency Start Date End Date Teach information regarding appropriate environmental changes -- 10/25/17 -- Problem: Safety: Start Date: 10/25/17 Goal Start Date End Date Will remain free from falls 10/25/17 -- Goal Intervention Frequency Start Date End Date Assess risk factors for falls -- 10/25/17 -- Intervention Details: (including medications) Goal Intervention Frequency Start Date End Date Implement fall prevention measures -- 10/25/17 -- Goal Intervention Frequency Start Date End Date Collaborate with other disciplines -- 10/25/17 -- Intervention Details: (PT, OT, Pharmacy, MD, etc.) Goal Start Date End Date Will remain free from injury from falls 10/25/17 -- Goal Intervention Frequency Start Date End Date Provide safe environment for conduction of activities of daily living -- 10/25/17 -- Goal Start Date End Date Will remain free from falls and injury in home environment 10/25/17 -- Goal Intervention Frequency Start Date End Date Assess environmental risk factors -- 10/25/17 -- Problem: Activity: Start Date: 10/25/17 Goal Start Date End Date Mobility will improve 10/25/17 -- Goal Intervention Frequency Start Date End Date Encourage mobilization to extent of ability -- 10/25/17 -- Goal Intervention Frequency Start Date End Date Perform repositioning -- 10/25/17 -- Goal Intervention Frequency Start Date End Date Collaborate with physical therapy -- 10/25/17 -- Problem: Lack of Knowledge: Start Date: 10/25/17 Goal Start Date End Date Understanding of ways to prevent future skin breakdown will improve 10/25/17 -- Goal Intervention Frequency Start Date End Date Discuss precautions to protect skin integrity -- 10/25/17 -- Goal Intervention Frequency Start Date End Date Discuss treatment plan for related conditions -- 10/25/17 -- Goal Start Date End Date Ability to identify appropriate dietary choices will improve 10/25/17 -- Goal Intervention Frequency Start Date End Date Discuss dietary adjustments -- 10/25/17 -- Problem: Nutritional: Start Date: 10/25/17 Goal Start Date End Date Dietary intake will improve 10/25/17 -- Goal Intervention Frequency Start Date End Date Assess nutritional status -- 10/25/17 -- Goal Intervention Frequency Start Date End Date Collaborate with dietitian -- 10/25/17 -- Goal Intervention Frequency Start Date End Date Assist appropriate dietary choices -- 10/25/17 -- Goal Start Date End Date Ability to maintain a balanced intake and output will improve 10/25/17 -- Goal Intervention Frequency Start Date End Date Assess intake and output -- 10/25/17 -- Problem: Skin Integrity: Start Date: 10/25/17 Goal Start Date End Date Risk for impaired skin integrity will decrease 10/25/17 -- Goal Intervention Frequency Start Date End Date Identify risk factors for impaired skin integrity and/or pressure injuries -- 10/25/17 -- Goal Intervention Frequency Start Date End Date Monitor medication effects -- 10/25/17 -- Goal Intervention Frequency Start Date End Date Implement precautions to protect skin integrity -- 10/25/17 -- Goal Intervention Frequency Start Date End Date Use moisturizing agent to dry skin -- 10/25/17 -- Goal Intervention Frequency Start Date End Date Perform cleansing of skin when soiled -- 10/25/17 -- Goal Intervention Frequency Start Date End Date Provide pressure-relief bed or mattress -- 10/25/17 -- Goal Start Date End Date Ability to demonstrate warm and dry skin will improve 10/25/17 -- Goal Intervention Frequency Start Date End Date Monitor skin integrity, appearance and/or temperature -- 10/25/17 -- Goal Start Date End Date Circulation will improve to fullest extent possible 10/25/17 -- Goal Intervention Frequency Start Date End Date Assess circulation, sensation and/or motion of extremity -- 10/25/17 -- Problem: Bladder/Voiding Start Date: 10/25/17 Goal Start Date End Date LTG - Patient will achieve acceptable level of continence 10/25/17 -- Goal Start Date End Date STG - Patient demonstrates no accidents 10/25/17 -- Goal Intervention Frequency Start Date End Date Encourage toileting PRN 10/25/17 -- Goal Intervention Frequency Start Date End Date Educate patient about medications PRN 10/25/17 -- Problem: Bowel Elimination Start Date: 10/25/17 Goal Start Date End Date LTG - Patient will have regular and routine bowel evacuation 10/25/17 -- Goal Start Date End Date LTG - Patient will complete bowel elimination 10/25/17 -- Goal Start Date End Date STG - Patient maintains skin integrity 10/25/17 -- Goal Intervention Frequency Start Date End Date Educate patient about ostomy appliances, correct application, protection of skin PRN 10/25/17 -- Goal Start Date End Date STG - Patient will verbalize signs and symptoms of constipation and how to prevent/alleviate 10/25/17 -- Goal Intervention Frequency Start Date End Date Encourage use of aids (stool softener, laxative, suppository) PRN 10/25/17 -- Goal Intervention Frequency Start Date End Date Encourage adjustment and monitoring of fluid intake PRN 10/25/17 -- Goal Intervention Frequency Start Date End Date Teach patient about symptoms of impaction PRN 10/25/17 -- Goal Intervention Frequency Start Date End Date Educate patient about effect of fluid intake on bowel movement PRN 10/25/17 -- Goal Intervention Frequency Start Date End Date Educate patient about adequate fluid intake PRN 10/25/17 -- Goal Start Date End Date STG - Patient will be continent of stool 10/25/17 -- Goal Start Date End Date STG - Patient verbalizes knowledge about relationship between diet, fluid intake, activity and medication on constipation 10/25/17 -- Goal Intervention Frequency Start Date End Date Educate patient about medications PRN 10/25/17 -- Goal Intervention Frequency Start Date End Date Educate patient about adequate fluid intake PRN 10/25/17 -- Problem: Breathing Start Date: 10/25/17 Goal Start Date End Date STG - Respiratory rate and effort will be within normal limits for the patient 10/25/17 -- Goal Intervention Frequency Start Date End Date Provide oxygen therapy as ordered PRN 10/25/17 -- Goal Intervention Frequency Start Date End Date Monitor oygen saturation PRN 10/25/17 -- Goal Intervention Frequency Start Date End Date Encourage incentive spirometer x 10 each hour while awake PRN 10/25/17 -- Goal Intervention Frequency Start Date End Date Encourage/perform oral hygiene as appropriate PRN 10/25/17 -- Goal Intervention Frequency Start Date End Date Collaborate with respiratory therapy to administer medications/treatments PRN 10/25/17 -- Goal Start Date End Date STG - Patient/family will be able to verbalize oxygen safety precautions 10/25/17 -- Goal Intervention Frequency Start Date End Date Educate patient about oxygen PRN 10/25/17 -- Goal Start Date End Date STG - Patient will utilize incentive spirometer 10/25/17 -- Goal Intervention Frequency Start Date End Date Encourage incentive spirometer x 10 each hour while awake PRN 10/25/17 -- Goal Intervention Frequency Start Date End Date Encourage use of incentive spirometer PRN 10/25/17 -- Goal Start Date End Date STG - Patient performs or directs assisted coughing 10/25/17 -- Goal Intervention Frequency Start Date End Date Instruct on coughing and deep breathing PRN 10/25/17 -- Goal Intervention Frequency Start Date End Date Educate patient about forced cough PRN 10/25/17 -- Goal Intervention Frequency Start Date End Date Teach patient about assistive cough PRN 10/25/17 -- Problem: Pain Start Date: 10/25/17 Goal Start Date End Date [facility] - Pain is manageable through therapies 10/25/17 -- Goal Start Date End Date STG - Patient will verbalize an acceptable level of pain 10/25/17 -- Problem: OT Misc Start Date: 10/25/17 Goal Start Date End Date [facility] [place] [facility] 10/25/17 -- Goal Details: Pt to dress modified IND Goal Start Date End Date [facility] [place] 2 10/25/17 -- Goal Details: Pt to groom modified IND Goal Start Date End Date [facility] [place] 3 10/25/17 -- Goal Details: Pt to bathe with transfer modified IND Goal Start Date End Date [facility] [place] 4 10/25/17 -- Goal Details: Pt to toilet with transfer modified IND Goal Start Date End Date [facility] [place] 5 10/25/17 -- Goal Details: Pt to complete UE HEP with IND to promote IND with self care and functional transfers Problem: Cognitive: Start Date: 10/25/17 Goal Start Date End Date [facility] 1 10/25/17 -- Goal Details: Patient will execute multiple elements of a task with supervision Goal Start Date End Date [facility] 2 10/25/17 -- Goal Details: Patient will increase problem solving to complete tasks at 90% or with supervision Problem: Physical Regulation: Start Date: 10/25/17 Goal Start Date End Date [facility] 3 10/25/17 -- Goal Details: Patient will increase general strength/coordination through various exercises with supervision until disch Problem: Respiratory: Start Date: 10/25/17 Goal Start Date End Date [facility] 4 10/25/17 -- Goal Details: Patient will maintain/increase SPO2 by 1% in at least one session prior to disch Goal Start Date End Date [facility] 5 10/25/17 -- Goal Details: Patient will increase pulmonary function through various exercises with supervision until disch Problem: PT [facility] [place] Start Date: 10/25/17 Goal Start Date End Date [facility] [place] 1 10/25/17 -- Goal Details: Pt will roll SARAH and supine<-->sit EOB with supervision and bedrails as needed.Pt will sit<-->stand with minimum assist and appropriate assistive device. Pt will transfer bed<-->wheelchair/chair with minimum assist and appropriate assistive device. Goal Start Date End Date [facility] [place] 2 10/25/17 -- Goal Details: Pt will ambulate 150' w/ minimum assist and appropriate assistive device. Pt will ambulate up/down 4 stairs with mod assist and SARAH rails. Goal Start Date End Date [facility] [place] 3 10/25/17 -- Goal Details: Pt will propel WC 150' with supervision and extra time. Goal Start Date End Date [facility] [place] 4 10/25/17 -- Goal Details: Pt will complete SARAH LE HEP x15 reps with supervision. Goal Start Date End Date [facility] [place] 5 10/25/17 -- Goal Details: Pt and/or family will verbalize and demonstrate understanding of pt's safety and mobility needs upon discharge. * Александр Espino Jr., MD - 10/29/2017 7:23 AM CDT Pulmonary / Critical Care Daily Progress Chief Complaint/HPI/Hospital Course: Up in chair. Good night. Tolerating BiPAP. Worsening edema. Was up in chair all day yesterday per physical therapy Review of Systems: Review of Systems Constitutional: Negative for chills, fatigue and fever. HENT: Negative for congestion, sore throat and trouble swallowing. Respiratory: Positive for shortness of breath. Negative for cough, chest tightness and wheezing. Cardiovascular: Negative for chest pain and leg swelling. Gastrointestinal: Negative for diarrhea, nausea and vomiting. Genitourinary: Negative for dysuria and hematuria. Neurological: Positive for weakness. Negative for dizziness and headaches. Psychiatric/Behavioral: Negative for behavioral problems and sleep disturbance. Temp: [36.3 ??C (97.4 ??F)-36.4 ??C (97.5 ??F)] 36.3 ??C (97.4 ??F) Pulse: [86-111] 86 Resp: [18-22] 18 BP: (106-136)/(62-76) 109/76 FiO2 (%): [35 %] 35 % I/O last 2 completed shifts: In: 1450 [P.O.:1450] Out: 700 [Urine:700] No intake/output data recorded. Oxygen / Pulmonary Events Vent settings for last 24 hours: FiO2 (%): [35 %] 35 % Oxygen Therapy SpO2: 98 % O2 Therapy: Supplemental oxygen O2 Del Method: Nasal cannula FiO2 (%): 35 % O2 Flow Rate (L/min): 2 L/min] Physical exam: Physical Exam Constitutional: He is oriented to person, place, and time. He appears well- developed. No distress. HENT: Head: Normocephalic. Mouth/Throat: Oropharynx is clear and moist. Eyes: Pupils are equal, round, and reactive to light. Right eye exhibits no discharge. Left eye exhibits no discharge. Cardiovascular: Regular rhythm and normal heart sounds. Tachycardia present. Pulmonary/Chest: Effort normal and breath sounds normal. He has no wheezes. He has no rales. Abdominal: There is no rebound and no guarding. Peg Musculoskeletal: He exhibits edema. Neurological: He is alert and oriented to person, place, and time. Psychiatric: He has a normal mood and affect. Current Facility-Administered Medications: ??? acetaminophen (TYLENOL) tablet 650 mg, 650 mg, oral, Q4H PRN, Rachna Burt MD, 650 mg at 10/29/17625 ??? albuterol (PROVENTIL,VENTOLIN) 2.5 mg/0.5 mL nebulizer solution 5 mg, 5 mg, nebulization, Q6H PRN, Rachna Burt MD ??? amiodarone (PACERONE) tablet 200 mg, 200 mg, oral, BID, Rachna Burt MD, 200 mg at ??? apixaban (ELIQUIS) tablet 5 mg, 5 mg, oral, BID, Rachna Burt MD, 5 mg at 10/28/172011 ??? ascorbic acid (VITAMIN C) tablet/chewable tablet 500 mg, 500 mg, oral, BID, Rachna Burt MD, 500 mg at 10/28/172011 ??? aspirin enteric coated tablet 81 mg, 81 mg, oral, Daily, Rachna Burt MD, 81 mg at ??? atorvastatin (LIPITOR) tablet 20 mg, 20 mg, oral, Daily, Rachna Burt MD, 20 mg at ??? bisacodyl (DULCOLAX) suppository 10 mg, 10 mg, rectal, Daily PRN, Rachna Burt MD ??? budesonide-formoterol (SYMBICORT) 80-4.5 mcg/actuation inhaler 1 puff, 1 puff, inhalation, BID (RT), Rachna Burt MD, 1 puff at 10/29/17 0636 ??? bumetanide (BUMEX) tablet 0.25 mg, 0.25 mg, oral, Daily, Adam Pastor MD, 0.25 mg at 10/28/17 0856 ??? chlorhexidine (PERIDEX) 0.12 % solution 5 mL, 5 mL, mouth/throat, BID, Rachna Burt MD, 5 mL at 10/28/172011 ??? collagenase 250 unit/gram ointment, , topical, Daily, Rachna Burt MD ??? dextrose (GLUTOSE) 40 % gel 15 g, 15 g, oral, Q15 Min PRN, Jason Shore Jr., OWNER/PHOTOGRAPHER ??? dextrose 50% (concentrated solution) CONCENTRATED solution 25 g, 25 g, intravenous, Q15 Min PRN, Jason Shore Jr., OWNER/PHOTOGRAPHER ??? diphenhydrAMINE (BENADRYL) tab/cap 25 mg, 25 mg, oral, TID PRN, Rachna Burt MD ??? docusate sodium (COLACE) capsule 100 mg, 100 mg, oral, BID, Rachna Burt MD, 100 mg at 10/28/172011 ??? ergocalciferol (VITAMIN D) capsule 50,000 Units, 50,000 Units, oral, Weekly, Adam Pastor MD, 50,000 Units at 10/26/17 0802 ??? glucagon injection 1 mg, 1 mg, intramuscular, Q30 Min PRN, Jason Shore Jr., OWNER/PHOTOGRAPHER ??? insulin lispro (HumaLOG) injection 1-2 Units, 1-2 Units, subcutaneous, Nightly, Jason Lilly, OWNER/PHOTOGRAPHER ??? insulin lispro (HumaLOG) injection 1-3 Units, 1-3 Units, subcutaneous, TID with meals, Jason Shore Jr., OWNER/PHOTOGRAPHER ??? ipratropium-albuterol (DUO-NEB) 0.5-2.5 mg/3 mL nebulizer solution 3 mL, 3 mL, nebulization, QID (RT), Александр Espino Jr., MD, 3 mL at 10/29/17 0635 ??? metoprolol (LOPRESSOR) tablet 12.5 mg, 12.5 mg, oral, BID, Rachna Burt MD, 12.5 mg at 10/28/172011 ??? miconazole 2 % powder, , topical, BID, Rachna Burt MD ??? ondansetron (ZOFRAN) tablet 4 mg, 4 mg, oral, Q4H PRN, Rachna Burt MD ??? oxyCODONE (ROXICODONE) tablet 10 mg, 10 mg, oral, Q4H PRN, Rachna Burt MD ??? oxyCODONE (ROXICODONE) tablet 5 mg, 5 mg, oral, Q4H PRN, Rachna Burt MD ??? pantoprazole DR (PROTONIX) extended release tablet 40 mg, 40 mg, oral, Daily, Rachna Burt MD, 40 mg at 10/28/17853 ??? polyethylene glycol (MIRALAX) packet 17 g, 17 g, oral, Daily PRN, Rachna Burt MD ??? senna (SENOKOT) tablet 1 tablet, 1 tablet, oral, Daily, Rachna Burt MD, 1 tablet at 10/28/17853 ??? tamsulosin (FLOMAX) extended release capsule 0.4 mg, 0.4 mg, oral, Nightly, Rachna Burt MD, 0.4 mg at 10/28/172011 ??? zinc sulfate (ZINCATE) capsule 220 mg, 220 mg, oral, Daily, Rachna Burt MD, 220 mg at 10/28/17853 ??? zolpidem (AMBIEN) tablet 5 mg, 5 mg, oral, Nightly PRN, Rachna Burt MD, 5 mg at 10/27/172156 Labs: Labs reviewed: Hypercapnic, hypoxemic respiratory failure. Improving hyponatremia Recent Results (from the past 24 hour(s)) Glucose POC Collection Time: 10/28/17 11:50 AM Result Value Ref Range Glucose, POC, bld 114 70 - 140 mg/dL Glucose POC Collection Time: 10/28/17 4:45 PM Result Value Ref Range Glucose, POC, bld 136 70 - 140 mg/dL Glucose POC Collection Time: 10/28/17 8:17 PM Result Value Ref Range Glucose, POC, bld 126 70 - 140 mg/dL Comprehensive metabolic panel Collection Time: 10/29/17 3:07 AM Result Value Ref Range Sodium 136 135 - 145 mmol/L Potassium 4.2 3.3 - 4.9 mmol/L CO2 27 22 - 32 mmol/L BUN 15 8 - 25 mg/dL Glucose 94 70 - 199 mg/dL Creatinine 0.94 0.80 - 1.30 mg/dL Calcium 8.4 (L) 8.5 - 10.3 mg/dL Chloride 97 97 - 110 mmol/L Albumin 3.0 (L) 3.5 - 5.0 g/dL AST 22 10 - 50 Units/L ALT 45 7 - 55 Units/L Alk phos 111 40 - 130 Units/L Bilirubin 0.3 0.1 - 1.2 mg/dL Protein, pl 5.3 (L) 6.5 - 8.5 g/dL Anion Gap 12 2 - 15 mmol/L TSH Collection Time: 10/29/17 3:07 AM Result Value Ref Range Thyroid Stimulating Hormone 3.710 0.300 - 4.200 mcIUnit/mL eGFR Collection Time: 10/29/17 3:07 AM Result Value Ref Range GFR 83 mL/min/1.73 m2 Glucose POC Collection Time: 10/29/17 6:22 AM Result Value Ref Range Glucose, POC, bld 108 70 - 140 mg/dL Imaging: No results found. Diagnostics: Ejection fraction 65%. No vegetations. Mild left atrial enlarged Microbiology: Positive sputum culture for stenotrophomonas on October 13 Assessment & Plan: Assessment/Plan Hyponatremia Assessment & Plan Mild hyponatremia, hypochloremia. More edema on exam. Will increase Bumex dose. Monitor renal function Pneumonia Assessment & Plan Completed treatment for pneumonia, empyema prior to transfer to [facility]. Completed Bactrim for stenotrophomonas pneumonia Diskitis Assessment & Plan Completed debridement, prolonged antibiotic therapy for an L1 diskitis. Has had some back pain. Hypercapnic respiratory failure ([facility]) Assessment & Plan Successfully decannulated. FiO2 to maintain a saturation of 90%. Continue BiPAP at night. Eventual evaluation for home noninvasive positive pressure ventilation at night COPD (chronic obstructive pulmonary disease) ([facility]) Assessment & Plan Pulmonary function testing when stable. Continue inhaled bronchodilator therapy. Former smoker Assessment & Plan May meet criteria for lung cancer screen Chronic atrial fibrillation ([facility]) Assessment & Plan Hemodynamically stable. Monitor for bleeding. Continue amiodarone, aspirin, Lipitor, metoprolol, apixaban For today: Off Bactrim for stenotrophomonas pneumonia. Improving hyponatremia although more edema on exam. Will increase Bumex dose. Defer to rehab regarding PEG removed Prophylaxis: DVT ppx: Long-term oral anticoagulation At Code Status: Full Code. Александр Espino Jr., MD 10/29/2017 7:27 AM This note was transcribed using Speech Recognition software. As a result, there may be grammatical and spelling errors that are unintended. Every attempt is made to have correct dictation. If there are any questions or major errors, please contact me * Adam Pastor MD - 10/29/2017 6:35 AM CDT Internal Medicine Progress Note Adam Pastor M.D. 10/29/2017 Patient Name: José Miguel Jang Admit Date: 10/24/2017 PCP: Briana Medeiros MD Consult requested by Dr Rachna Burt MD Patient Name: José Miguel Jang PCP: Briana Medeiros MD Date of admission: 10/24/2017 Date of Service: 10/29/2017 Reason for Consultation: Medical Management Slept some. C/o difficulty finding comfortable position. More edema today, advance bumex to 0.5. Tolerates BiPAP. Continue aggressive pulm toilet. Completed Bactrim for Stenotrophomonas maltophilia pneumonia, Dr Espino following. No fever, chills, chest pain, acute SOB. Diffusely weak. TSH normal. Tolerating eliquis. H/H low, but fairly stable. WBC 7. Glc 90-136, good control, stopped metformin; A1c 4.7%. SSI prn. Bowel regimen. Vitals acceptable. Na 136, normalized. Watch vol status PMHx: Past Medical History: Diagnosis Date ??? A-fib (CMS/HCC) ??? A-fib (CMS/HCC) history ??? Chronic obstructive pulmonary disease (CMS/HCC) COPD ??? Coronary artery disease ??? Diabetes mellitus (CMS/HCC) ??? HX OTHER MEDICAL DJD ??? Hypertension PSurgHx: Past Surgical History: Procedure Laterality Date ??? BACK SURGERY ??? TOTAL HIP ARTHROPLASTY Bilateral ??? TRACHEOSTOMY All: Allergies Allergen Reactions ??? Penicillins Outpt Meds: Prescriptions Prior to Admission Medication Sig Dispense Refill Last Dose ??? acetaminophen (TYLENOL) 325 mg tablet Take 650 mg by mouth every 4 (four) hours as needed for pain. ??? albuterol (PROVENTIL,VENTOLIN) 2.5 mg/0.5 mL solution for nebulization Take 5 mg by nebulization every 6 (six) hours as needed. ??? amiodarone (PACERONE) 200 mg tablet Take 200 mg by mouth 2 (two) times a day. ??? apixaban (ELIQUIS) 5 mg tablet Take 5 mg by mouth 2 (two) times a day. ??? aspirin 81 mg chewable tablet Take 81 mg by mouth daily. ??? atorvastatin (LIPITOR) 20 mg tablet Take 20 mg by mouth daily. ??? bisacodyl (DULCOLAX) 10 mg suppository Insert 10 mg into the rectum every third day. ??? bumetanide (BUMEX) 0.5 mg tablet Take 0.25 mg by mouth daily. ??? chlorhexidine (PERIDEX) 0.12 % solution Apply 5 mL to the mouth or throat 2 (two) times a day. ??? diphenhydrAMINE (BENADRYL) 25 mg capsule Take 25 mg by mouth 3 (three) times a day as needed for itching. ??? docusate (COLACE) liquid 50 mg/5 mL Take 100 mg by mouth daily. ??? famotidine (PEPCID) 20 mg tablet Take 20 mg by mouth 2 (two) times a day. ??? insulin lispro (HumaLOG) 100 unit/mL injection Inject 0-10 Units under the skin 4 (four) times a day (with meals and nightly). Low dose sliding scale ??? LORazepam (ATIVAN) 2 mg/mL injection Infuse 1 mg into a venous catheter every 6 (six) hours as needed for anxiety. ??? metoprolol (LOPRESSOR) 25 mg tablet Take 12.5 mg by mouth 2 (two) times a day. ??? ondansetron (ZOFRAN) 4 mg tablet Take 4 mg by mouth every 4 (four) hours as needed for nausea or vomiting. ??? oxyCODONE (ROXICODONE) 5 mg immediate release tablet Take 5 mg by mouth every 4 (four) hours asneeded. ??? oxyCODONE (ROXICODONE) 5 mg immediate release tablet Take 10 mg by mouth every 4 (four) hours as needed (prn pain scale 7-10). ??? polyethylene glycol (MIRALAX) 17 gram packet Take 17 g by mouth daily as needed. ??? senna (SENOKOT) 8.6 mg tablet Take 1 tablet by mouth daily. ??? sulfamethoxazole-trimethoprim (BACTRIM,SEPTRA) 800-160 mg per tablet Take 1 tablet by mouth 2 (two) times a day. ??? tamsulosin (FLOMAX) 0.4 mg extended release capsule Take 0.4 mg by mouth nightly. ??? zolpidem (AMBIEN) 5 mg tablet Take 5 mg by mouth nightly as needed for sleep. ??? aspirin (ASPIRIN LOW DOSE) 81 mg tablet take 1 Tablet (81MG) by oral route every day 0 Taking ??? budesonide-formoterol (SYMBICORT) 80-4.5 mcg/actuation inhaler Inhale 1 puff 2 (two) times a day. Taking ??? cyanocobalamin, vitamin B-12, 500 mcg lozenge Take by mouth. Taking ??? diclofenac DR (VOLTAREN) 75 mg EC tablet take 2 Tablet (150MG) by oral route every day (Patientnot taking: Reported on 02/22/2017 ) 0 Not Taking ??? doxepin (SINEquan) 25 mg capsule TAKE 1 CAPSULE TWICE A DAY Taking ??? ferrous fumarate 325 mg (106 mg iron) tablet Take 2 tablets by mouth daily. Taking ??? furosemide (LASIX) 20 mg tablet take 1 tablet by oral route every day (Patient not taking: Reported on 02/22/2017 ) 0 0 Not Taking ??? metFORMIN (GLUCOPHAGE) 500 mg tablet Take 500 mg by mouth 2 (two) times a day with meals. Taking ??? pantoprazole DR (PROTONIX) 40 mg EC tablet take 1 tablet by oral route every day 0 0 Taking ??? potassium chloride ER (potassium chloride ER) 10 mEq CR tablet TAKE ONE TABLET BY MOUTH ONCE DAILY WITH FOOD (Patient not taking: Reported on 02/22/2017 ) 30 0 Not Taking Inpatient Meds: Current Facility-Administered Medications: ??? acetaminophen (TYLENOL) tablet 650 mg, 650 mg, oral, Q4H PRN, Rachna Burt MD, 650 mg at 10/29/17 0626 ??? albuterol (PROVENTIL,VENTOLIN) 2.5 mg/0.5 mL nebulizer solution 5 mg, 5 mg, nebulization, Q6H PRN, Rachna Burt MD ??? amiodarone (PACERONE) tablet 200 mg, 200 mg, oral, BID, Rachna Burt MD, 200 mg at ??? apixaban (ELIQUIS) tablet 5 mg, 5 mg, oral, BID, Rachna Burt MD, 5 mg at 10/28/172011 ??? ascorbic acid (VITAMIN C) tablet/chewable tablet 500 mg, 500 mg, oral, BID, Rachna Burt MD, 500 mg at 10/28/172011 ??? aspirin enteric coated tablet 81 mg, 81 mg, oral, Daily, Rachna Burt MD, 81 mg at ??? atorvastatin (LIPITOR) tablet 20 mg, 20 mg, oral, Daily, Rachna Burt MD, 20 mg at ??? bisacodyl (DULCOLAX) suppository 10 mg, 10 mg, rectal, Daily PRN, Rachna Burt MD ??? budesonide-formoterol (SYMBICORT) 80-4.5 mcg/actuation inhaler 1 puff, 1 puff, inhalation, BID (RT), Rachna Burt MD, 1 puff at 10/29/17 0636 ??? bumetanide (BUMEX) tablet 0.5 mg, 0.5 mg, oral, Daily, Александр Espino Jr., MD ??? chlorhexidine (PERIDEX) 0.12 % solution 5 mL, 5 mL, mouth/throat, BID, Rachna Burt MD, 5 mL at 10/28/172011 ??? collagenase 250 unit/gram ointment, , topical, Daily, Rachna Burt MD ??? dextrose (GLUTOSE) 40 % gel 15 g, 15 g, oral, Q15 Min PRN, Jason Shore Jr., OWNER/PHOTOGRAPHER ??? dextrose 50% (concentrated solution) CONCENTRATED solution 25 g, 25 g, intravenous, Q15 Min PRN, Jason Shore Jr., OWNER/PHOTOGRAPHER ??? diphenhydrAMINE (BENADRYL) tab/cap 25 mg, 25 mg, oral, TID PRN, Rachna Burt MD ??? docusate sodium (COLACE) capsule 100 mg, 100 mg, oral, BID, Rachna Burt MD, 100 mg at 10/28/172011 ??? ergocalciferol (VITAMIN D) capsule 50,000 Units, 50,000 Units, oral, Weekly, Adam Pastor MD, 50,000 Units at 10/26/17 0802 ??? glucagon injection 1 mg, 1 mg, intramuscular, Q30 Min PRN, Jason Shore Jr., OWNER/PHOTOGRAPHER ??? insulin lispro (HumaLOG) injection 1-2 Units, 1-2 Units, subcutaneous, Nightly, Jason Lilly, OWNER/PHOTOGRAPHER ??? insulin lispro (HumaLOG) injection 1-3 Units, 1-3 Units, subcutaneous, TID with meals, Jason Shore Jr., OWNER/PHOTOGRAPHER ??? ipratropium-albuterol (DUO-NEB) 0.5-2.5 mg/3 mL nebulizer solution 3 mL, 3 mL, nebulization, QID (RT), Александр Espino Jr., MD, 3 mL at 10/29/17 0635 ??? metoprolol (LOPRESSOR) tablet 12.5 mg, 12.5 mg, oral, BID, Rachna Burt MD, 12.5 mg at 10/28/172011 ??? miconazole 2 % powder, , topical, BID, Rachna Burt MD ??? ondansetron (ZOFRAN) tablet 4 mg, 4 mg, oral, Q4H PRN, Rachna Burt MD ??? oxyCODONE (ROXICODONE) tablet 10 mg, 10 mg, oral, Q4H PRN, Rachna Burt MD ??? oxyCODONE (ROXICODONE) tablet 5 mg, 5 mg, oral, Q4H PRN, Rachna Burt MD ??? pantoprazole DR (PROTONIX) extended release tablet 40 mg, 40 mg, oral, Daily, Rachna Burt MD, 40 mg at 10/28/17 0854 ??? polyethylene glycol (MIRALAX) packet 17 g, 17 g, oral, Daily PRN, Rachna Burt MD ??? senna (SENOKOT) tablet 1 tablet, 1 tablet, oral, Daily, Rachna Burt MD, 1 tablet at 10/28/17 0854 ??? tamsulosin (FLOMAX) extended release capsule 0.4 mg, 0.4 mg, oral, Nightly, Rachna Burt MD, 0.4 mg at 10/28/172011 ??? zinc sulfate (ZINCATE) capsule 220 mg, 220 mg, oral, Daily, Rachna Burt MD, 220 mg at 10/28/17 0854 ??? zolpidem (AMBIEN) tablet 5 mg, 5 mg, oral, Nightly PRN, Rachna Burt MD, 5 mg at 10/27/172156 SocHx: Social History Substance Use Topics ??? Smoking status: Former Smoker ??? Smokeless tobacco: Never Used ??? Alcohol use No FamHx: History reviewed. No pertinent family history. Review of Systems History from patient and medical records General positive for - fatigue ENT positive for - dysphagia CV positive for - chest pain, dyspnea on exertion, edema, irregular heartbeat and shortness of breath Respiratory positive for - pleuritic pain and shortness of breath GI positive for - change in bowel habits positive for - change in urinary stream MS positive for - gait disturbance, joint pain, joint stiffness and muscular weakness Neuro positive for - weakness All Other ROS Negative BP 109/76 (BP Location: Right arm, Patient Position: Lying) Pulse 86 Temp 36.3 ??C (97.4 ??F) (Axillary) Resp 18 Ht 180.3 cm (5' 11 ) Wt 94.3 kg (208 lb) SpO2 98% BMI 29.01 kg/m?? Intake/Output Summary (Last 24 hours) at 10/29/17 0737 Last data filed at 10/29/17 0500 Gross per 24 hour Intake 1450 ml Output 700 ml Net 750 ml Wt Readings from Last 3 Encounters: 10/24/17 94.3 kg (208 lb) 10/24/17 88.9 kg (196 lb) 02/22/17 116.1 kg (256 lb) General appearance Alert, no distress Head Normocephalic, without obvious abnormality, atraumatic Throat Oropharynx clear Neck Supple. Trach stoma healing Lungs Clear to auscultation bilaterally, diminished bases Chest wall +tenderness Heart Regular rate and rhythm Abdomen Soft, non-tender. Bowel sounds normal. G tube Extremities + edema Neurologic Diffusely weak CBC: Recent Labs Lab Units 10/28/17 0454 10/26/17 0403 10/25/17 0540 WHITE BLOOD CELLS K/cumm 7.8 9.2 8.0 HEMOGLOBIN g/dL 9.0* 9.5* 9.1* HEMATOCRIT % 29.4* 31.1* 30.3* PLATELETS K/cumm 156 152 155 BMP: Recent Labs Lab Units 10/29/17 0622 10/29/17 0307 10/28/17201610/28/1745310/27/17 0357 SODIUM mmol/L -- 136 -- -- 134* -- 132* POTASSIUM PLASMA mmol/L -- 4.2 -- -- 4.3 -- 4.3 CHLORIDE mmol/L -- 97 -- -- 98 -- 96* CO2 mmol/L -- 27 -- -- 26 -- 26 ANIONGAP mmol/L -- 12 -- -- 10 -- 10 GLUCOSE mg/dL -- 94 -- -- 97 -- 87 POC GLUCOSE MONITOR mg/dL 108 -- 126 < > -- < > -- BUN SERUM mg/dL -- 15 -- -- 15 -- 17 CREATININE mg/dL -- 0.94 -- -- 0.86 -- 0.89 CALCIUM mg/dL -- 8.4* -- -- 8.9 -- 8.8 ALBUMIN g/dL -- 3.0* -- -- 3.0* -- 2.9* ALK PHOS Units/L -- 111 -- -- 106 -- 111 ALT Units/L -- 45 -- -- 47 -- 59* AST Units/L -- 22 -- -- 20 -- 31 BILIRUBIN TOTAL mg/dL -- 0.3 -- -- 0.4 -- 0.5 < > = values in this interval not displayed. EKG: No results found for this or any previous visit. RADIOLOGY: No results found. 1. Debility: Complicated recent medical course. Comprehensive rehab program. 2. L1 abscess s/p debridement with MRSA empyema: Pain control. F/u with surgery team. Complete course of bactrim. Chest tube out 3. Respiratory failure: S/p trach, decannulated. Aggressive pulm toilet. BDs/inhaled steroids. Dr Espino following. NIPPV as required. H/o COPD and prior tobacco abuse. 4. Dysphagia: S/p PEG. TOWING PILOT, RD f/u. Aspiration precautions 5. Dm2: A1c 4.7%. Metformin held. SSI, accuchecks. RD eval. 6. CAD: ASA, statin, BBlocker 7. HTN: Metoprolol, bumex 8. Afib: Eliquis, amio, metoprolol 9. Urinary retention: Flomax, monitor UOP 10. Dyslipid; Statin 11. Anemia: ACD and ABLA. Monitor cbc, transfuse for hgb under 7 or if symptomatic. Thank you for involving me in this patient's care. I will continue to follow along with you. ?? DVT Prophylaxis: Eliquis ?? GI prophylaxis: PPI ?? Code Status Full Code 35 min were spent in the care of this patient today; this may have included family conferences, nursing conferences and discussion with any consultants Adam Pastor M.D. * Guadalupe Mejia CRTT - 10/29/2017 6:35 AM CDT 10/29/17 0635 RT Protocol Assessment RT Assessment Scoring Needed Bronchodilator Bronchodilator Assessment Scoring Pulmonary Status 3 Surgical Status <30 days ago 0 Chest X-Ray < WEEK 1 Respiratory Pattern 0 Mental Status/LOC 0 Cough 0 Breath Sounds 2 Level of Activity 1 Oxygen Required for SPO2 >92% 1 Bronhcodilator Assessment Score 8 RT Impression/Plan: Patient c/o of back pain, but denies any sob. Lungs diminished with no wheezes noted. Change nebs to PRN due to no changes after treatment and no wheezes or sob noted. * Rachna Burt MD - 10/28/2017 11:04 AM CDT [facility] Medicine Progress Note NAME: José Miguel Jang AGE: 66 y.o. : 1950 Date of Note: 10/28/2017 REHABILITATION PROGRESS NOTE Physician Physical Assessment/ Progress Note Rehab Impairment Code: Impairment Code Group: Debility Date of onset: Date of Onset: 07/29/17 Date of admission: 10/24/2017 Subjective: Slept well. Pleased with therapy. Feels a little stronger. Max assist with slide board transfer. Tolerating BiPAP. Generalized weakness. Max assist for transfers. Using standing frame. Back incision c/d/i. Wound care following. Continent of bowel and bladder. Tolerates BIPBP Trach stoma closing. Onbactrim for stenotrophomonas maltophilia pna. Pulmonology following. On eliquis. Glucose overall controlled. IM following. No fever chills, chest pain , or acute sob. PHYSICAL EXAMINATION: Vitals: 10/27/17 2156 10/28/17 0413 10/28/17 0912 10/28/17 0920 BP: 127/66 113/68 106/65 BP Location: Right arm Patient Position: Lying Pulse: 102 95 111 Resp: 18 22 Temp: 36.6 ??C (97.8 ??F) TempSrc: Axillary SpO2: (!) 2% 95% Weight: Height: Physical exam:?? GENERAL: Pleasant and in no acute distress MENTAL STATUS: ??Awake, alert and oriented to person, place and time with normal attention span, insight, and concentration. ??Naming and repetition are normal. ??Remote and recent memory intact. ??Fund of knowledge is appropriate. SPEECH: ??Fluent, non-dysarthric, no aphasia noted CRANIAL NERVES: Visual herrera are full on confrontation. ??Pupils are equally round and reactive tolight??bilaterally. Extraocular movements are??full and intact. No nystagmus is noted. ??There is no loss of sensation over the face. ??There is no facial weakness or asymmetry. ??Hearing intact bilaterally to finger rubbing. Uvula and palate elevate in the midline. Shoulder shrug is symmetric. ??Tongue protrudes in the midline. MOTOR: Generalized weakness. Moves all extremities. BL LE: hip flexors 3/5, knee extension and flexion 4/5, BL DF 3/5 Bulk and tone are nomal. ??No abnormal movements are noted. REFLEXES: 1+ and symmetric in bilateral upper extremities. SENSORY: Intact to light??touch in all four extremities.?No extinction with bilateral stimulation. COORDINATION: ??Normal GAIT AND STATION: Not tested, per therapy notes CARDIOVASCULAR: Regular rate and rhythm. ??No murmurs, rubs, gallops or carotid bruits. LUNGS: Clear to auscultation bilaterally. No wheezes, rhonchi or rales. ABDOMEN: ??Soft and non-tender.?Normal bowel sounds were noted. EXTREMITIES: ??No edema, back incision dehisced IMPRESSION: Rehab Diagnosis: Respiratory Failure Impairment Code Group: Debility Physician Problem List/ Comorbidities: Active Problems: Chronic atrial fibrillation ([facility]) Former smoker COPD (chronic obstructive pulmonary disease) ([facility]) Hypercapnic respiratory failure ([facility]) Diskitis Pneumonia Hyponatremia MEDICAL PLAN: 1. Debility: ??Complicated recent medical course. ??Comprehensive inpatient rehabilitation, family training, structured environment. 2. 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 ??F/u with surgery team. ??Complete course of bactrim. ??Chest tube out. Wound care following back incision. 3. Respiratory failure: ??S/p trach, decannulated. ??Aggressive pulm toilet. ??BDs/inhaled steroids. ??Dr Espino following. NIPPV as required. ??H/o COPD and prior tobacco abuse. 4. Dysphagia: ??S/p PEG. ??TOWING PILOT, RD f/u. ??Aspiration precautions 5. Dm2: ??A1c 4.7%: prudent diet, diabetic education. ??Metformin, SSI, accuchecks. ??RD eval. 6. CAD: ??ASA, statin, BBlocker 7. HTN: ??Metoprolol, bumex 8. Afib: ??Eliquis, amio, metoprolol 9. Urinary retention: ??Flomax, monitor UOP 10. Dyslipid; ??Statin 11. Anemia: ??ACD and ABLA. ??Monitor cbc, transfuse for hgb under 7 or if symptomatic. 12. Nutrition: rd consult. ?? * DVT prophylaxsis: eliquis * GI prophylaxsis: ppi CODE STATUS: Full Code ALLERGY: Allergies Allergen Reactions ??? Penicillins Current Facility-Administered Medications: ??? acetaminophen (TYLENOL) tablet 650 mg, 650 mg, oral, Q4H PRN, Rachna Burt MD, 650 mg at 10/28/17855 ??? albuterol (PROVENTIL,VENTOLIN) 2.5 mg/0.5 mL nebulizer solution 5 mg, 5 mg, nebulization, Q6H PRN, Rachna Burt MD ??? amiodarone (PACERONE) tablet 200 mg, 200 mg, oral, BID, Rachna Burt MD, 200 mg at ??? apixaban (ELIQUIS) tablet 5 mg, 5 mg, oral, BID, Rachna Burt MD, 5 mg at 10/28/17854 ??? ascorbic acid (VITAMIN C) tablet/chewable tablet 500 mg, 500 mg, oral, BID, Rachna Burt MD, 500 mg at 10/28/17854 ??? aspirin enteric coated tablet 81 mg, 81 mg, oral, Daily, Rachna Burt MD, 81 mg at ??? atorvastatin (LIPITOR) tablet 20 mg, 20 mg, oral, Daily, Rachna Burt MD, 20 mg at ??? bisacodyl (DULCOLAX) suppository 10 mg, 10 mg, rectal, Daily PRN, Rachna Burt MD ??? budesonide-formoterol (SYMBICORT) 80-4.5 mcg/actuation inhaler 1 puff, 1 puff, inhalation, BID (RT), Rachna Burt MD, 1 puff at 10/28/17911 ??? bumetanide (BUMEX) tablet 0.25 mg, 0.25 mg, oral, Daily, Adam Pastor MD, 0.25 mg at 10/28/17855 ??? chlorhexidine (PERIDEX) 0.12 % solution 5 mL, 5 mL, mouth/throat, BID, Rachna Burt MD, 5 mL at 10/28/17911 ??? collagenase 250 unit/gram ointment, , topical, Daily, Rachna Burt MD ??? dextrose (GLUTOSE) 40 % gel 15 g, 15 g, oral, Q15 Min PRN, Jason Shore Jr., OWNER/PHOTOGRAPHER ??? dextrose 50% (concentrated solution) CONCENTRATED solution 25 g, 25 g, intravenous, Q15 Min PRN, Jason Shore Jr., OWNER/PHOTOGRAPHER ??? diphenhydrAMINE (BENADRYL) tab/cap 25 mg, 25 mg, oral, TID PRN, Rachna Burt MD ??? docusate sodium (COLACE) capsule 100 mg, 100 mg, oral, BID, Rachna Burt MD, 100 mg at 10/28/17 0855 ??? ergocalciferol (VITAMIN D) capsule 50,000 Units, 50,000 Units, oral, Weekly, Adam Pastor MD, 50,000 Units at 10/26/17 0802 ??? glucagon injection 1 mg, 1 mg, intramuscular, Q30 Min PRN, Jason Shore Jr., OWNER/PHOTOGRAPHER ??? insulin lispro (HumaLOG) injection 1-2 Units, 1-2 Units, subcutaneous, Nightly, Jason Lilly, OWNER/PHOTOGRAPHER ??? insulin lispro (HumaLOG) injection 1-3 Units, 1-3 Units, subcutaneous, TID with meals, Jason Shore Jr., OWNER/PHOTOGRAPHER ??? ipratropium-albuterol (DUO-NEB) 0.5-2.5 mg/3 mL nebulizer solution 3 mL, 3 mL, nebulization, QID (RT), Александр Espino Jr., MD, 3 mL at 10/28/17 0912 ??? metoprolol (LOPRESSOR) tablet 12.5 mg, 12.5 mg, oral, BID, Rachna Burt MD, 12.5 mg at 10/28/17 0854 ??? miconazole 2 % powder, , topical, BID, Rachna Burt MD ??? ondansetron (ZOFRAN) tablet 4 mg, 4 mg, oral, Q4H PRN, Rachna Burt MD ??? oxyCODONE (ROXICODONE) tablet 10 mg, 10 mg, oral, Q4H PRN, Rachna Burt MD ??? oxyCODONE (ROXICODONE) tablet 5 mg, 5 mg, oral, Q4H PRN, Rachna Burt MD ??? pantoprazole DR (PROTONIX) extended release tablet 40 mg, 40 mg, oral, Daily, Rachna Burt MD, 40 mg at 10/28/17 08 ??? polyethylene glycol (MIRALAX) packet 17 g, 17 g, oral, Daily PRN, Rachna Burt MD ??? senna (SENOKOT) tablet 1 tablet, 1 tablet, oral, Daily, Rachna Burt MD, 1 tablet at 10/28/1754 ??? tamsulosin (FLOMAX) extended release capsule 0.4 mg, 0.4 mg, oral, Nightly, Rachna Burt MD, 0.4 mg at 10/27/172155 ??? zinc sulfate (ZINCATE) capsule 220 mg, 220 mg, oral, Daily, Rachna Burt MD, 220 mg at 10/28/17853 ??? zolpidem (AMBIEN) tablet 5 mg, 5 mg, oral, Nightly PRN, Rachna Burt MD, 5 mg at 10/27/172156 Current functional status: PT Functional Mobility: WC<-->mat with max assist x1-2 via slide board, once to left side andonce to right side, performs seated SARAH LE and balance exercises, sit<-->supine with max assist x1, sidelying LE exercises attempted, sit<-->stand x3 trials in // bars with max-total assist x2 w/ SARAH UE support (unable to functionally stand). Pt fatigues easily today, and expresses low back pain with prolonged unsupported sitting on edge of mat. Pt repositioned, but was too painful toroll him into supine from his side, so sidelying exercises performed and then pt repositioned seated edge of mat. RN notified, meds given. Pt able to perform active assisted heel slides w/ towels under feet, did well w/ ball tossing, and demonstrates very decreased SARAH trunk rotation. Pt is max assist x2 for slide board transfers and sit<-->stand, and max assist x1 for bed mobility. Pt remains highly motivated and cooperative. Continue per plan of care. OT Functional Mobility: Pt. completes supine to sit max assist and 2 person DEP for sit to stand with manual stand aid OT Self Care: DEP to minimal assist for self care with 1 to 2 people. Pt using rolling shower chairwith sarah supports and manual stand aid 2 person with LE dressing. Pt demonstrates general decreasedbalance, endurance, strength and sensation. Pt will benefit from continued skilled OT to promote IND toward goals. OT Cognition: Appears WNL OT Communication: decreased vocal strength at times. TOWING PILOT Cognition: WFL TOWING PILOT Communication: WFL TOWING PILOT Swallowing: Mild: upgraded to regular consistency solids with thin liquids; whole pills Patient/caregiver goals:Patient and Family Goals: to return home with assistance Pre hospital Living environment: Home Setting: [facility] level home Prehospital Lives With: Spouse;Adult children REVIEW OF DATA: Recent Results (from the past 24 hour(s)) Glucose POC Collection Time: 10/27/17 11:51 AM Result Value Ref Range Glucose, POC, bld 110 70 - 140 mg/dL Glucose POC Collection Time: 10/27/17 4:57 PM Result Value Ref Range Glucose, POC, bld 156 (H) 70 - 140 mg/dL Glucose POC Collection Time: 10/27/17 9:55 PM Result Value Ref Range Glucose, POC, bld 107 70 - 140 mg/dL Comprehensive metabolic panel Collection Time: 10/28/17 4:54 AM Result Value Ref Range Sodium 134 (L) 135 - 145 mmol/L Potassium 4.3 3.3 - 4.9 mmol/L CO2 26 22 - 32 mmol/L BUN 15 8 - 25 mg/dL Glucose 97 70 - 199 mg/dL Creatinine 0.86 0.80 - 1.30 mg/dL Calcium 8.9 8.5 - 10.3 mg/dL Chloride 98 97 - 110 mmol/L Albumin 3.0 (L) 3.5 - 5.0 g/dL AST 20 10 - 50 Units/L ALT 47 7 - 55 Units/L Alk phos 106 40 - 130 Units/L Bilirubin 0.4 0.1 - 1.2 mg/dL Protein, pl 5.4 (L) 6.5 - 8.5 g/dL Anion Gap 10 2 - 15 mmol/L CBC with auto differential Collection Time: 10/28/17 4:54 AM Result Value Ref Range WBC 7.8 3.8 - 9.9 K/cumm RBC 3.11 (L) 4.30 - 5.80 M/cumm Hgb 9.0 (L) 13.0 - 17.5 g/dL Hct 29.4 (L) 38.9 - 50.3 % MCV 94.5 81.3 - 96.4 fL MCH 28.9 27.1 - 33.3 pg MCHC 30.6 (L) 32.3 - 35.7 g/dL RDW CV 18.3 (H) 11.1 - 14.9 % RDW SD 63.6 (H) 35.7 - 48.1 fL Plt 156 150 - 400 K/cumm MPV 12.7 (H) 9.1 - 12.3 fL NRBC Abs 0.00 0.00 - 0.01 K/cumm Osmolality, blood Collection Time: 10/28/17 4:54 AM Result Value Ref Range Osmo 277 275 - 295 mOsm/kg Differential, auto Collection Time: 10/28/17 4:54 AM Result Value Ref Range Neutrophil absolute 6.2 1.7 - 6.5 K/cumm Immature granulocyte absolute 0.1 0.0 - 0.1 K/cumm Lymphocytes absolute 0.5 (L) 0.8 - 3.3 K/cumm Monocyte absolute 0.7 0.2 - 0.8 K/cumm Eosinophils absolute 0.2 0.0 - 0.5 K/cumm Basophils, abs 0.0 0.0 - 0.1 K/cumm Neutrophils 80.6 % Immature granulocytes 1.0 % Lymphocytes 6.1 % Monocytes 9.4 % Eosinophils 2.8 % Basophils 0.1 % eGFR Collection Time: 10/28/17 4:54 AM Result Value Ref Range GFR 89 mL/min/1.73 m2 Glucose POC Collection Time: 10/28/17 6:36 AM Result Value Ref Range Glucose, POC, bld 90 70 - 140 mg/dL REVIEW OF IMAGING: Imaging (Last 96 hours) 10/22 1037 XR Chest 1 Vw REHABILITATION DIAGNOSIS: Impairment Code Group: Debility REHAB PLAN OF CARE: The Interdisciplinary Team will work collaboratively to address the patient problems and goals to be managed by the Individualized Interdisciplinary Plan of Care. Rehabilitation Precautions/Restrictions: Falls;MRSA colonization;Isolation Multi-Disciplinary Problems Active Problems Problem: Health Behavior: Start Date: 10/24/17 Goal Start Date End Date Understanding of discharge needs will improve 10/24/17 -- Goal Intervention Frequency Start Date End Date Discuss information regarding discharge instructions -- 10/24/17 -- Goal Intervention Frequency Start Date End Date Identify discharge learning needs (meds, wound care, etc) -- 10/24/17 -- Goal Intervention Frequency Start Date End Date Collaborate with case management -- 10/24/17 -- Intervention Details: (Coordinate discharge planning if the patient needs post- hospital services onphysician order or complex needs related to functional status, cognitive ability, or social supportsystem) Goal Intervention Frequency Start Date End Date Arrange for needed discharge resources and transportation as appropriate -- 10/24/17 -- Goal Intervention Frequency Start Date End Date Identify discharge barriers -- 10/24/17 -- Goal Intervention Frequency Start Date End Date Collaborate with spanish interpreter -- 10/24/17 -- Problem: Lack of Knowledge: Start Date: 10/25/17 Goal Start Date End Date Ability to state ways to decrease the risk of falls will improve 10/25/17 -- Goal Intervention Frequency Start Date End Date Teach fall prevention measures -- 10/25/17 -- Goal Intervention Frequency Start Date End Date Teach information regarding appropriate environmental changes -- 10/25/17 -- Problem: Safety: Start Date: 10/25/17 Goal Start Date End Date Will remain free from falls 10/25/17 -- Goal Intervention Frequency Start Date End Date Assess risk factors for falls -- 10/25/17 -- Intervention Details: (including medications) Goal Intervention Frequency Start Date End Date Implement fall prevention measures -- 10/25/17 -- Goal Intervention Frequency Start Date End Date Collaborate with other disciplines -- 10/25/17 -- Intervention Details: (PT, OT, Pharmacy, MD, etc.) Goal Start Date End Date Will remain free from injury from falls 10/25/17 -- Goal Intervention Frequency Start Date End Date Provide safe environment for conduction of activities of daily living -- 10/25/17 -- Goal Start Date End Date Will remain free from falls and injury in home environment 10/25/17 -- Goal Intervention Frequency Start Date End Date Assess environmental risk factors -- 10/25/17 -- Problem: Activity: Start Date: 10/25/17 Goal Start Date End Date Mobility will improve 10/25/17 -- Goal Intervention Frequency Start Date End Date Encourage mobilization to extent of ability -- 10/25/17 -- Goal Intervention Frequency Start Date End Date Perform repositioning -- 10/25/17 -- Goal Intervention Frequency Start Date End Date Collaborate with physical therapy -- 10/25/17 -- Problem: Lack of Knowledge: Start Date: 10/25/17 Goal Start Date End Date Understanding of ways to prevent future skin breakdown will improve 10/25/17 -- Goal Intervention Frequency Start Date End Date Discuss precautions to protect skin integrity -- 10/25/17 -- Goal Intervention Frequency Start Date End Date Discuss treatment plan for related conditions -- 10/25/17 -- Goal Start Date End Date Ability to identify appropriate dietary choices will improve 10/25/17 -- Goal Intervention Frequency Start Date End Date Discuss dietary adjustments -- 10/25/17 -- Problem: Nutritional: Start Date: 10/25/17 Goal Start Date End Date Dietary intake will improve 10/25/17 -- Goal Intervention Frequency Start Date End Date Assess nutritional status -- 10/25/17 -- Goal Intervention Frequency Start Date End Date Collaborate with dietitian -- 10/25/17 -- Goal Intervention Frequency Start Date End Date Assist appropriate dietary choices -- 10/25/17 -- Goal Start Date End Date Ability to maintain a balanced intake and output will improve 10/25/17 -- Goal Intervention Frequency Start Date End Date Assess intake and output -- 10/25/17 -- Problem: Skin Integrity: Start Date: 10/25/17 Goal Start Date End Date Risk for impaired skin integrity will decrease 10/25/17 -- Goal Intervention Frequency Start Date End Date Identify risk factors for impaired skin integrity and/or pressure injuries -- 10/25/17 -- Goal Intervention Frequency Start Date End Date Monitor medication effects -- 10/25/17 -- Goal Intervention Frequency Start Date End Date Implement precautions to protect skin integrity -- 10/25/17 -- Goal Intervention Frequency Start Date End Date Use moisturizing agent to dry skin -- 10/25/17 -- Goal Intervention Frequency Start Date End Date Perform cleansing of skin when soiled -- 10/25/17 -- Goal Intervention Frequency Start Date End Date Provide pressure-relief bed or mattress -- 10/25/17 -- Goal Start Date End Date Ability to demonstrate warm and dry skin will improve 10/25/17 -- Goal Intervention Frequency Start Date End Date Monitor skin integrity, appearance and/or temperature -- 10/25/17 -- Goal Start Date End Date Circulation will improve to fullest extent possible 10/25/17 -- Goal Intervention Frequency Start Date End Date Assess circulation, sensation and/or motion of extremity -- 10/25/17 -- Problem: Bladder/Voiding Start Date: 10/25/17 Goal Start Date End Date LTG - Patient will achieve acceptable level of continence 10/25/17 -- Goal Start Date End Date STG - Patient demonstrates no accidents 10/25/17 -- Goal Intervention Frequency Start Date End Date Encourage toileting PRN 10/25/17 -- Goal Intervention Frequency Start Date End Date Educate patient about medications PRN 10/25/17 -- Problem: Bowel Elimination Start Date: 10/25/17 Goal Start Date End Date LTG - Patient will have regular and routine bowel evacuation 10/25/17 -- Goal Start Date End Date LTG - Patient will complete bowel elimination 10/25/17 -- Goal Start Date End Date STG - Patient maintains skin integrity 10/25/17 -- Goal Intervention Frequency Start Date End Date Educate patient about ostomy appliances, correct application, protection of skin PRN 10/25/17 -- Goal Start Date End Date STG - Patient will verbalize signs and symptoms of constipation and how to prevent/alleviate 10/25/17 -- Goal Intervention Frequency Start Date End Date Encourage use of aids (stool softener, laxative, suppository) PRN 10/25/17 -- Goal Intervention Frequency Start Date End Date Encourage adjustment and monitoring of fluid intake PRN 10/25/17 -- Goal Intervention Frequency Start Date End Date Teach patient about symptoms of impaction PRN 10/25/17 -- Goal Intervention Frequency Start Date End Date Educate patient about effect of fluid intake on bowel movement PRN 10/25/17 -- Goal Intervention Frequency Start Date End Date Educate patient about adequate fluid intake PRN 10/25/17 -- Goal Start Date End Date STG - Patient will be continent of stool 10/25/17 -- Goal Start Date End Date STG - Patient verbalizes knowledge about relationship between diet, fluid intake, activity and medication on constipation 10/25/17 -- Goal Intervention Frequency Start Date End Date Educate patient about medications PRN 10/25/17 -- Goal Intervention Frequency Start Date End Date Educate patient about adequate fluid intake PRN 10/25/17 -- Problem: Breathing Start Date: 10/25/17 Goal Start Date End Date STG - Respiratory rate and effort will be within normal limits for the patient 10/25/17 -- Goal Intervention Frequency Start Date End Date Provide oxygen therapy as ordered PRN 10/25/17 -- Goal Intervention Frequency Start Date End Date Monitor oygen saturation PRN 10/25/17 -- Goal Intervention Frequency Start Date End Date Encourage incentive spirometer x 10 each hour while awake PRN 10/25/17 -- Goal Intervention Frequency Start Date End Date Encourage/perform oral hygiene as appropriate PRN 10/25/17 -- Goal Intervention Frequency Start Date End Date Collaborate with respiratory therapy to administer medications/treatments PRN 10/25/17 -- Goal Start Date End Date STG - Patient/family will be able to verbalize oxygen safety precautions 10/25/17 -- Goal Intervention Frequency Start Date End Date Educate patient about oxygen PRN 10/25/17 -- Goal Start Date End Date STG - Patient will utilize incentive spirometer 10/25/17 -- Goal Intervention Frequency Start Date End Date Encourage incentive spirometer x 10 each hour while awake PRN 10/25/17 -- Goal Intervention Frequency Start Date End Date Encourage use of incentive spirometer PRN 10/25/17 -- Goal Start Date End Date STG - Patient performs or directs assisted coughing 10/25/17 -- Goal Intervention Frequency Start Date End Date Instruct on coughing and deep breathing PRN 10/25/17 -- Goal Intervention Frequency Start Date End Date Educate patient about forced cough PRN 10/25/17 -- Goal Intervention Frequency Start Date End Date Teach patient about assistive cough PRN 10/25/17 -- Problem: Pain Start Date: 10/25/17 Goal Start Date End Date STG - Pain is manageable through therapies 10/25/17 -- Goal Start Date End Date ST[facility] - Patient will verbalize an acceptable level of pain 10/25/17 -- Problem: OT Misc Start Date: 10/25/17 Goal Start Date End Date [facility] [place] - Misc 1 10/25/17 -- Goal Details: Pt to dress modified IND Goal Start Date End Date [facility] -- Goal Details: Pt to groom modified IND Goal Start Date End Date [facility] 3 10/25/17 -- Goal Details: Pt to bathe with transfer modified IND Goal Start Date End Date [facility] [place] 4 10/25/17 -- Goal Details: Pt to toilet with transfer modified IND Goal Start Date End Date [facility] [place] 5 10/25/17 -- Goal Details: Pt to complete UE HEP with IND to promote IND with self care and functional transfers Problem: TOWING PILOT [facility] [place] Start Date: 10/25/17 Goal Start Date End Date [facility] [place] 1 10/25/17 -- Goal Details: Patient will tolerate regular consistency with thin liquids without clinical overt s/s of aspiration. Goal Start Date End Date [facility] [place] 2 10/25/17 -- Goal Details: Patient will complete 3 sets of 10 pharyngeal strengthening exercises Problem: Cognitive: Start Date: 10/25/17 Goal Start Date End Date [facility] 1 10/25/17 -- Goal Details: Patient will execute multiple elements of a task with supervision Goal Start Date End Date [facility] 2 10/25/17 -- Goal Details: Patient will increase problem solving to complete tasks at 90% or with supervision Problem: Physical Regulation: Start Date: 10/25/17 Goal Start Date End Date [facility] 3 10/25/17 -- Goal Details: Patient will increase general strength/coordination through various exercises with supervision until disch Problem: Respiratory: Start Date: 10/25/17 Goal Start Date End Date [facility] 4 10/25/17 -- Goal Details: Patient will maintain/increase SPO2 by 1% in at least one session prior to disch Goal Start Date End Date [facility] 5 10/25/17 -- Goal Details: Patient will increase pulmonary function through various exercises with supervision until disch Problem: PT [facility] [place] Start Date: 10/25/17 Goal Start Date End Date [facility] [place] 10/25/17 -- Goal Details: Pt will roll SARAH and supine<-->sit EOB with supervision and bedrails as needed.Pt will sit<-->stand with minimum assist and appropriate assistive device. Pt will transfer bed<-->wheelchair/chair with minimum assist and appropriate assistive device. Goal Start Date End Date [facility] [place] 2 10/25/17 -- Goal Details: Pt will ambulate 150' w/ minimum assist and appropriate assistive device. Pt will ambulate up/down 4 stairs with mod assist and SARAH rails. Goal Start Date End Date [facility] [place] 3 10/25/17 -- Goal Details: Pt will propel WC 150' with supervision and extra time. Goal Start Date End Date [facility] [place] 4 10/25/17 -- Goal Details: Pt will complete SARAH LE HEP x15 reps with supervision. Goal Start Date End Date [facility] [place] 5 10/25/17 -- Goal Details: Pt and/or family will verbalize and demonstrate understanding of pt's safety and mobility needs upon discharge. * Александр Espino Jr., MD - 10/28/2017 8:12 AM CDT Pulmonary / Critical Care Daily Progress Chief Complaint/HPI/Hospital Course: Up in chair. Good night. Tolerating BiPAP. Physical therapy. Working hard, improving per physical therapy Review of Systems: Review of Systems Constitutional: Negative for chills, fatigue and fever. HENT: Negative for congestion, sore throat and trouble swallowing. Respiratory: Positive for shortness of breath. Negative for cough, chest tightness and wheezing. Cardiovascular: Negative for chest pain and leg swelling. Gastrointestinal: Negative for diarrhea, nausea and vomiting. Genitourinary: Negative for dysuria and hematuria. Neurological: Positive for weakness. Negative for dizziness and headaches. Psychiatric/Behavioral: Negative for behavioral problems and sleep disturbance. Temp: [36.4 ??C (97.5 ??F)-36.6 ??C (97.8 ??F)] 36.6 ??C (97.8 ??F) Pulse: [80-111] 95 Resp: [18-20] 18 BP: (110-127)/(66-84) 113/68 FiO2 (%): [35 %] 35 % I/O last 2 completed shifts: In: 1070 [P.O.:1070] Out: 700 [Urine:700] No intake/output data recorded. Oxygen / Pulmonary Events Vent settings for last 24 hours: FiO2 (%): [35 %] 35 % Oxygen Therapy SpO2: (!) 2 % O2 Therapy: Supplemental oxygen O2 Del Method: CPAP/Bi-PAP mask FiO2 (%): 35 % O2 Flow Rate (L/min): 2 L/min] Physical exam: Physical Exam Constitutional: He is oriented to person, place, and time. He appears well- developed. No distress. HENT: Head: Normocephalic. Mouth/Throat: Oropharynx is clear and moist. Eyes: Pupils are equal, round, and reactive to light. Right eye exhibits no discharge. Left eye exhibits no discharge. Cardiovascular: Regular rhythm and normal heart sounds. Tachycardia present. Pulmonary/Chest: Effort normal and breath sounds normal. He has no wheezes. He has no rales. Abdominal: There is no rebound and no guarding. Peg Musculoskeletal: He exhibits edema. Neurological: He is alert and oriented to person, place, and time. Psychiatric: He has a normal mood and affect. Current Facility-Administered Medications: ??? acetaminophen (TYLENOL) tablet 650 mg, 650 mg, oral, Q4H PRN, Rachna Burt MD, 650 mg at 10/27/172155 ??? albuterol (PROVENTIL,VENTOLIN) 2.5 mg/0.5 mL nebulizer solution 5 mg, 5 mg, nebulization, Q6H PRN, Rachna Burt MD ??? amiodarone (PACERONE) tablet 200 mg, 200 mg, oral, BID, Rachna Burt MD, 200 mg at ??? apixaban (ELIQUIS) tablet 5 mg, 5 mg, oral, BID, Rachna Burt MD, 5 mg at 10/27/172155 ??? ascorbic acid (VITAMIN C) tablet/chewable tablet 500 mg, 500 mg, oral, BID, Rachna Burt MD, 500 mg at 10/27/172155 ??? aspirin enteric coated tablet 81 mg, 81 mg, oral, Daily, Rachna Burt MD, 81 mg at ??? atorvastatin (LIPITOR) tablet 20 mg, 20 mg, oral, Daily, Rachna Burt MD, 20 mg at ??? bisacodyl (DULCOLAX) suppository 10 mg, 10 mg, rectal, Daily PRN, Rachna Burt MD ??? budesonide-formoterol (SYMBICORT) 80-4.5 mcg/actuation inhaler 1 puff, 1 puff, inhalation, BID (RT), Rachna Burt MD, 1 puff at 10/27/172057 ??? bumetanide (BUMEX) tablet 0.25 mg, 0.25 mg, oral, Daily, Adam Pastor MD ??? chlorhexidine (PERIDEX) 0.12 % solution 5 mL, 5 mL, mouth/throat, BID, Rachna Burt MD, 5 mL at 10/27/172158 ??? collagenase 250 unit/gram ointment, , topical, Daily, Rachna Burt MD ??? dextrose (GLUTOSE) 40 % gel 15 g, 15 g, oral, Q15 Min PRN, Jason Shore Jr., OWNER/PHOTOGRAPHER ??? dextrose 50% (concentrated solution) CONCENTRATED solution 25 g, 25 g, intravenous, Q15 Min PRN, Jason Shoer Jr., OWNER/PHOTOGRAPHER ??? diphenhydrAMINE (BENADRYL) tab/cap 25 mg, 25 mg, oral, TID PRN, Rachna Burt MD ??? docusate sodium (COLACE) capsule 100 mg, 100 mg, oral, BID, Rachna Burt MD, 100 mg at 10/27/172155 ??? ergocalciferol (VITAMIN D) capsule 50,000 Units, 50,000 Units, oral, Weekly, Adam Pastor MD, 50,000 Units at 10/26/17 0802 ??? glucagon injection 1 mg, 1 mg, intramuscular, Q30 Min PRN, Jsaon Shore Jr., OWNER/PHOTOGRAPHER ??? insulin lispro (HumaLOG) injection 1-2 Units, 1-2 Units, subcutaneous, Nightly, Jason Lilly, OWNER/PHOTOGRAPHER ??? insulin lispro (HumaLOG) injection 1-3 Units, 1-3 Units, subcutaneous, TID with meals, Jason Shore Jr., OWNER/PHOTOGRAPHER ??? ipratropium-albuterol (DUO-NEB) 0.5-2.5 mg/3 mL nebulizer solution 3 mL, 3 mL, nebulization, QID (RT), Александр Espino Jr., MD, 3 mL at 10/27/172054 ??? metoprolol (LOPRESSOR) tablet 12.5 mg, 12.5 mg, oral, BID, Rachna Burt MD, 12.5 mg at 10/27/172156 ??? miconazole 2 % powder, , topical, BID, Rachna Burt MD ??? ondansetron (ZOFRAN) tablet 4 mg, 4 mg, oral, Q4H PRN, Rachna Burt MD ??? oxyCODONE (ROXICODONE) tablet 10 mg, 10 mg, oral, Q4H PRN, Rachna Burt MD ??? oxyCODONE (ROXICODONE) tablet 5 mg, 5 mg, oral, Q4H PRN, Rachna Burt MD ??? pantoprazole DR (PROTONIX) extended release tablet 40 mg, 40 mg, oral, Daily, Rachna Burt MD, 40 mg at 10/27/17 0745 ??? polyethylene glycol (MIRALAX) packet 17 g, 17 g, oral, Daily PRN, Rachna Burt MD ??? senna (SENOKOT) tablet 1 tablet, 1 tablet, oral, Daily, Rachna Burt MD, 1 tablet at 10/27/17 0749 ??? sulfamethoxazole-trimethoprim (BACTRIM,SEPTRA) 800-160 mg per tablet 1 tablet, 1 tablet, oral, BID, Rachna Burt MD, 1 tablet at 10/27/172155 ??? tamsulosin (FLOMAX) extended release capsule 0.4 mg, 0.4 mg, oral, Nightly, Rachna Burt MD, 0.4 mg at 10/27/172155 ??? zinc sulfate (ZINCATE) capsule 220 mg, 220 mg, oral, Daily, Rachna Burt MD, 220 mg at 10/27/17 0752 ??? zolpidem (AMBIEN) tablet 5 mg, 5 mg, oral, Nightly PRN, Rachna Burt MD, 5 mg at 10/27/172156 Labs: Labs reviewed: Hypercapnic, hypoxemic respiratory failure. Mild hyponatremia Recent Results (from the past 24 hour(s)) Glucose POC Collection Time: 10/27/17 11:51 AM Result Value Ref Range Glucose, POC, bld 110 70 - 140 mg/dL Glucose POC Collection Time: 10/27/17 4:57 PM Result Value Ref Range Glucose, POC, bld 156 (H) 70 - 140 mg/dL Glucose POC Collection Time: 10/27/17 9:55 PM Result Value Ref Range Glucose, POC, bld 107 70 - 140 mg/dL Comprehensive metabolic panel Collection Time: 10/28/17 4:54 AM Result Value Ref Range Sodium 134 (L) 135 - 145 mmol/L Potassium 4.3 3.3 - 4.9 mmol/L CO2 26 22 - 32 mmol/L BUN 15 8 - 25 mg/dL Glucose 97 70 - 199 mg/dL Creatinine 0.86 0.80 - 1.30 mg/dL Calcium 8.9 8.5 - 10.3 mg/dL Chloride 98 97 - 110 mmol/L Albumin 3.0 (L) 3.5 - 5.0 g/dL AST 20 10 - 50 Units/L ALT 47 7 - 55 Units/L Alk phos 106 40 - 130 Units/L Bilirubin 0.4 0.1 - 1.2 mg/dL Protein, pl 5.4 (L) 6.5 - 8.5 g/dL Anion Gap 10 2 - 15 mmol/L CBC with auto differential Collection Time: 10/28/17 4:54 AM Result Value Ref Range WBC 7.8 3.8 - 9.9 K/cumm RBC 3.11 (L) 4.30 - 5.80 M/cumm Hgb 9.0 (L) 13.0 - 17.5 g/dL Hct 29.4 (L) 38.9 - 50.3 % MCV 94.5 81.3 - 96.4 fL MCH 28.9 27.1 - 33.3 pg MCHC 30.6 (L) 32.3 - 35.7 g/dL RDW CV 18.3 (H) 11.1 - 14.9 % RDW SD 63.6 (H) 35.7 - 48.1 fL Plt 156 150 - 400 K/cumm MPV 12.7 (H) 9.1 - 12.3 fL NRBC Abs 0.00 0.00 - 0.01 K/cumm Osmolality, blood Collection Time: 10/28/17 4:54 AM Result Value Ref Range Osmo 277 275 - 295 mOsm/kg Differential, auto Collection Time: 10/28/17 4:54 AM Result Value Ref Range Neutrophil absolute 6.2 1.7 - 6.5 K/cumm Immature granulocyte absolute 0.1 0.0 - 0.1 K/cumm Lymphocytes absolute 0.5 (L) 0.8 - 3.3 K/cumm Monocyte absolute 0.7 0.2 - 0.8 K/cumm Eosinophils absolute 0.2 0.0 - 0.5 K/cumm Basophils, abs 0.0 0.0 - 0.1 K/cumm Neutrophils 80.6 % Immature granulocytes 1.0 % Lymphocytes 6.1 % Monocytes 9.4 % Eosinophils 2.8 % Basophils 0.1 % eGFR Collection Time: 10/28/17 4:54 AM Result Value Ref Range GFR 89 mL/min/1.73 m2 Glucose POC Collection Time: 10/28/17 6:36 AM Result Value Ref Range Glucose, POC, bld 90 70 - 140 mg/dL Imaging: No results found. Diagnostics: Ejection fraction 65%. No vegetations. Mild left atrial enlarged Microbiology: Positive sputum culture for stenotrophomonas on October 13 Assessment & Plan: Assessment/Plan Hyponatremia Assessment & Plan Mild hyponatremia, hypochloremia. Some edema on exam. Follow while on diuretic. Pneumonia Assessment & Plan Completed treatment for pneumonia, empyema prior to transfer to [facility]. Currently on Bactrim for stenotrophomonas pneumonia. Chest x-ray improved Diskitis Assessment & Plan Completed debridement, prolonged antibiotic therapy for an L1 diskitis. Has had some back pain. Hypercapnic respiratory failure ([facility]) Assessment & Plan Successfully decannulated. FiO2 to maintain a saturation of 90%. Continue BiPAP at night. Eventual evaluation for home noninvasive positive pressure ventilation at night COPD (chronic obstructive pulmonary disease) ([facility]) Assessment & Plan Pulmonary function testing when stable. Continue inhaled bronchodilator therapy. Former smoker Assessment & Plan May meet criteria for lung cancer screen Chronic atrial fibrillation ([facility]) Assessment & Plan Hemodynamically stable. Has had problems with intermittent bleeding from trach site, skin tears andalso hematuria while in [facility]. Continues on apixaban. Monitor for bleeding. Consider urology consultation if hematuria reoccur. Continue amiodarone, aspirin, Lipitor, metoprolol. For today: Monitor urine output, renal function. Hyponatremia, hypochloremia may be diuretic induced. Trace ankle edema. Will discontinue Bactrim today. Spoke with nurse. Evaluation for PEG removal underway. Defer to rehabilitation service Prophylaxis: DVT ppx: Long-term oral anticoagulation At Code Status: Full Code. Александр Espino Jr., MD 10/28/2017 8:12 AM This note was transcribed using Speech Recognition software. As a result, there may be grammatical and spelling errors that are unintended. Every attempt is made to have correct dictation. If there are any questions or major errors, please contact me * Adam Pastor MD - 10/28/2017 6:31 AM CDT Internal Medicine Progress Note Adam Pastor M.D. 10/28/2017 Patient Name: José Miguel Jang Admit Date: 10/24/2017 PCP: Briana Medeiros MD Consult requested by Dr Rachna Burt MD Patient Name: José Miguel Jang PCP: Briana Medeiros MD Date of admission: 10/24/2017 Date of Service: 10/28/2017 Reason for Consultation: Medical Management Slept most of the night. Using BiPAP. Continue aggressive pulm toilet. On Bactrim for Stenotrophomonas maltophilia pneumonia, Dr Espino following. No fever, chills, chest pain, acute SOB. Diffusely weak. Tolerating eliquis. H/H low, but fairly stable. WBC 7. Glc 87-156, good control, stoppedmetformin; A1c 4.7%. SSI prn. Bowel regimen. Vitals acceptable. Na 134, up from 132, held bumex yesterday. Watch vol status PMHx: Past Medical History: Diagnosis Date ??? A-fib (CMS/HCC) ??? A-fib (CMS/HCC) history ??? Chronic obstructive pulmonary disease (CMS/HCC) COPD ??? Coronary artery disease ??? Diabetes mellitus (CMS/HCC) ??? HX OTHER MEDICAL DJD ??? Hypertension PSurgHx: Past Surgical History: Procedure Laterality Date ??? BACK SURGERY ??? TOTAL HIP ARTHROPLASTY Bilateral ??? TRACHEOSTOMY All: Allergies Allergen Reactions ??? Penicillins Outpt Meds: Prescriptions Prior to Admission Medication Sig Dispense Refill Last Dose ??? acetaminophen (TYLENOL) 325 mg tablet Take 650 mg by mouth every 4 (four) hours as needed for pain. ??? albuterol (PROVENTIL,VENTOLIN) 2.5 mg/0.5 mL solution for nebulization Take 5 mg by nebulization every 6 (six) hours as needed. ??? amiodarone (PACERONE) 200 mg tablet Take 200 mg by mouth 2 (two) times a day. ??? apixaban (ELIQUIS) 5 mg tablet Take 5 mg by mouth 2 (two) times a day. ??? aspirin 81 mg chewable tablet Take 81 mg by mouth daily. ??? atorvastatin (LIPITOR) 20 mg tablet Take 20 mg by mouth daily. ??? bisacodyl (DULCOLAX) 10 mg suppository Insert 10 mg into the rectum every third day. ??? bumetanide (BUMEX) 0.5 mg tablet Take 0.25 mg by mouth daily. ??? chlorhexidine (PERIDEX) 0.12 % solution Apply 5 mL to the mouth or throat 2 (two) times a day. ??? diphenhydrAMINE (BENADRYL) 25 mg capsule Take 25 mg by mouth 3 (three) times a day as needed for itching. ??? docusate (COLACE) liquid 50 mg/5 mL Take 100 mg by mouth daily. ??? famotidine (PEPCID) 20 mg tablet Take 20 mg by mouth 2 (two) times a day. ??? insulin lispro (HumaLOG) 100 unit/mL injection Inject 0-10 Units under the skin 4 (four) times a day (with meals and nightly). Low dose sliding scale ??? LORazepam (ATIVAN) 2 mg/mL injection Infuse 1 mg into a venous catheter every 6 (six) hours as needed for anxiety. ??? metoprolol (LOPRESSOR) 25 mg tablet Take 12.5 mg by mouth 2 (two) times a day. ??? ondansetron (ZOFRAN) 4 mg tablet Take 4 mg by mouth every 4 (four) hours as needed for nausea or vomiting. ??? oxyCODONE (ROXICODONE) 5 mg immediate release tablet Take 5 mg by mouth every 4 (four) hours asneeded. ??? oxyCODONE (ROXICODONE) 5 mg immediate release tablet Take 10 mg by mouth every 4 (four) hours as needed (prn pain scale 7-10). ??? polyethylene glycol (MIRALAX) 17 gram packet Take 17 g by mouth daily as needed. ??? senna (SENOKOT) 8.6 mg tablet Take 1 tablet by mouth daily. ??? sulfamethoxazole-trimethoprim (BACTRIM,SEPTRA) 800-160 mg per tablet Take 1 tablet by mouth 2 (two) times a day. ??? tamsulosin (FLOMAX) 0.4 mg extended release capsule Take 0.4 mg by mouth nightly. ??? zolpidem (AMBIEN) 5 mg tablet Take 5 mg by mouth nightly as needed for sleep. ??? aspirin (ASPIRIN LOW DOSE) 81 mg tablet take 1 Tablet (81MG) by oral route every day 0 Taking ??? budesonide-formoterol (SYMBICORT) 80-4.5 mcg/actuation inhaler Inhale 1 puff 2 (two) times a day. Taking ??? cyanocobalamin, vitamin B-12, 500 mcg lozenge Take by mouth. Taking ??? diclofenac DR (VOLTAREN) 75 mg EC tablet take 2 Tablet (150MG) by oral route every day (Patientnot taking: Reported on 02/22/2017 ) 0 Not Taking ??? doxepin (SINEquan) 25 mg capsule TAKE 1 CAPSULE TWICE A DAY Taking ??? ferrous fumarate 325 mg (106 mg iron) tablet Take 2 tablets by mouth daily. Taking ??? furosemide (LASIX) 20 mg tablet take 1 tablet by oral route every day (Patient not taking: Reported on 02/22/2017 ) 0 0 Not Taking ??? metFORMIN (GLUCOPHAGE) 500 mg tablet Take 500 mg by mouth 2 (two) times a day with meals. Taking ??? pantoprazole DR (PROTONIX) 40 mg EC tablet take 1 tablet by oral route every day 0 0 Taking ??? potassium chloride ER (potassium chloride ER) 10 mEq CR tablet TAKE ONE TABLET BY MOUTH ONCE DAILY WITH FOOD (Patient not taking: Reported on 02/22/2017 ) 30 0 Not Taking Inpatient Meds: Current Facility-Administered Medications: ??? acetaminophen (TYLENOL) tablet 650 mg, 650 mg, oral, Q4H PRN, Rachna Burt MD, 650 mg at 10/27/172155 ??? albuterol (PROVENTIL,VENTOLIN) 2.5 mg/0.5 mL nebulizer solution 5 mg, 5 mg, nebulization, Q6H PRN, Rachna Burt MD ??? amiodarone (PACERONE) tablet 200 mg, 200 mg, oral, BID, Rachna Burt MD, 200 mg at ??? apixaban (ELIQUIS) tablet 5 mg, 5 mg, oral, BID, Rachna Burt MD, 5 mg at 10/27/172155 ??? ascorbic acid (VITAMIN C) tablet/chewable tablet 500 mg, 500 mg, oral, BID, Rachna Burt MD, 500 mg at 10/27/172155 ??? aspirin enteric coated tablet 81 mg, 81 mg, oral, Daily, Rachna Burt MD, 81 mg at ??? atorvastatin (LIPITOR) tablet 20 mg, 20 mg, oral, Daily, Rachna Burt MD, 20 mg at ??? bisacodyl (DULCOLAX) suppository 10 mg, 10 mg, rectal, Daily PRN, Rachna Burt MD ??? budesonide-formoterol (SYMBICORT) 80-4.5 mcg/actuation inhaler 1 puff, 1 puff, inhalation, BID (RT), Rachna Burt MD, 1 puff at 10/27/172057 ??? bumetanide (BUMEX) tablet 0.25 mg, 0.25 mg, oral, Daily, Adam Pastor MD ??? chlorhexidine (PERIDEX) 0.12 % solution 5 mL, 5 mL, mouth/throat, BID, Rachna Burt MD, 5 mL at 10/27/172158 ??? collagenase 250 unit/gram ointment, , topical, Daily, Rachna Burt MD ??? dextrose (GLUTOSE) 40 % gel 15 g, 15 g, oral, Q15 Min PRN, Jason Shore Jr., OWNER/PHOTOGRAPHER ??? dextrose 50% (concentrated solution) CONCENTRATED solution 25 g, 25 g, intravenous, Q15 Min PRN, Jason Shore Jr., OWNER/PHOTOGRAPHER ??? diphenhydrAMINE (BENADRYL) tab/cap 25 mg, 25 mg, oral, TID PRN, Rachna Burt MD ??? docusate sodium (COLACE) capsule 100 mg, 100 mg, oral, BID, Rachna Burt MD, 100 mg at 10/27/172155 ??? ergocalciferol (VITAMIN D) capsule 50,000 Units, 50,000 Units, oral, Weekly, Adam Pastor MD, 50,000 Units at 10/26/17801 ??? glucagon injection 1 mg, 1 mg, intramuscular, Q30 Min PRN, Jason Shore Jr., OWNER/PHOTOGRAPHER ??? insulin lispro (HumaLOG) injection 1-2 Units, 1-2 Units, subcutaneous, Nightly, Jason Lilly, OWNER/PHOTOGRAPHER ??? insulin lispro (HumaLOG) injection 1-3 Units, 1-3 Units, subcutaneous, TID with meals, Jason Shore Jr., OWNER/PHOTOGRAPHER ??? ipratropium-albuterol (DUO-NEB) 0.5-2.5 mg/3 mL nebulizer solution 3 mL, 3 mL, nebulization, QID (RT), Александр Espino Jr., MD, 3 mL at 10/27/172054 ??? metoprolol (LOPRESSOR) tablet 12.5 mg, 12.5 mg, oral, BID, Rachna Burt MD, 12.5 mg at 10/27/172156 ??? miconazole 2 % powder, , topical, BID, Rachna Burt MD ??? ondansetron (ZOFRAN) tablet 4 mg, 4 mg, oral, Q4H PRN, Rachna Burt MD ??? oxyCODONE (ROXICODONE) tablet 10 mg, 10 mg, oral, Q4H PRN, Rachna Burt MD ??? oxyCODONE (ROXICODONE) tablet 5 mg, 5 mg, oral, Q4H PRN, Rachna Burt MD ??? pantoprazole DR (PROTONIX) extended release tablet 40 mg, 40 mg, oral, Daily, Rachna Burt MD, 40 mg at 10/27/17 0745 ??? polyethylene glycol (MIRALAX) packet 17 g, 17 g, oral, Daily PRN, Rachna Burt MD ??? senna (SENOKOT) tablet 1 tablet, 1 tablet, oral, Daily, Rachna Burt MD, 1 tablet at 10/27/17 0749 ??? sulfamethoxazole-trimethoprim (BACTRIM,SEPTRA) 800-160 mg per tablet 1 tablet, 1 tablet, oral, BID, Rachna Burt MD, 1 tablet at 10/27/172155 ??? tamsulosin (FLOMAX) extended release capsule 0.4 mg, 0.4 mg, oral, Nightly, Rachna Burt MD, 0.4 mg at 10/27/172155 ??? zinc sulfate (ZINCATE) capsule 220 mg, 220 mg, oral, Daily, Rachna Burt MD, 220 mg at 10/27/17 0752 ??? zolpidem (AMBIEN) tablet 5 mg, 5 mg, oral, Nightly PRN, Rachna Burt MD, 5 mg at 10/27/172156 SocHx: Social History Substance Use Topics ??? Smoking status: Former Smoker ??? Smokeless tobacco: Never Used ??? Alcohol use No FamHx: History reviewed. No pertinent family history. Review of Systems History from patient and medical records General positive for - fatigue ENT positive for - dysphagia CV positive for - chest pain, dyspnea on exertion, edema, irregular heartbeat and shortness of breath Respiratory positive for - pleuritic pain and shortness of breath GI positive for - change in bowel habits positive for - change in urinary stream MS positive for - gait disturbance, joint pain, joint stiffness and muscular weakness Neuro positive for - weakness All Other ROS Negative BP 113/68 (BP Location: Right arm, Patient Position: Lying) Pulse 95 Temp 36.6 ??C (97.8 ??F) (Axillary) Resp 18 Ht 180.3 cm (5' 11 ) Wt 94.3 kg (208 lb) SpO2 (!) 2% BMI 29.01 kg/m?? Intake/Output Summary (Last 24 hours) at 10/28/17 0718 Last data filed at 10/28/17 0650 Gross per 24 hour Intake 1070 ml Output 700 ml Net 370 ml Wt Readings from Last 3 Encounters: 10/24/17 94.3 kg (208 lb) 10/24/17 88.9 kg (196 lb) 02/22/17 116.1 kg (256 lb) General appearance Alert, no distress Head Normocephalic, without obvious abnormality, atraumatic Throat Oropharynx clear Neck Supple. Trach stoma healing Lungs Clear to auscultation bilaterally, diminished bases Chest wall +tenderness Heart Regular rate and rhythm Abdomen Soft, non-tender. Bowel sounds normal. G tube Extremities + edema Neurologic Diffusely weak CBC: Recent Labs Lab Units 10/28/17 0454 10/26/17 0403 10/25/17 0540 WHITE BLOOD CELLS K/cumm 7.8 9.2 8.0 HEMOGLOBIN g/dL 9.0* 9.5* 9.1* HEMATOCRIT % 29.4* 31.1* 30.3* PLATELETS K/cumm 156 152 155 BMP: Recent Labs Lab Units 10/28/17 0636 10/28/17 0454 10/27/17 2155 10/27/17 0357 10/26/17 0403 SODIUM mmol/L -- 134* -- -- 132* -- 136 POTASSIUM PLASMA mmol/L -- 4.3 -- -- 4.3 -- 4.6 CHLORIDE mmol/L -- 98 -- -- 96* -- 99 CO2 mmol/L -- 26 -- -- 26 -- 26 ANIONGAP mmol/L -- 10 -- -- 10 -- 11 GLUCOSE mg/dL -- 97 -- -- 87 -- 89 POC GLUCOSE MONITOR mg/dL 90 -- 107 < > -- < > -- BUN SERUM mg/dL -- 15 -- -- 17 -- 20 CREATININE mg/dL -- 0.86 -- -- 0.89 -- 0.88 CALCIUM mg/dL -- 8.9 -- -- 8.8 -- 9.0 ALBUMIN g/dL -- 3.0* -- -- 2.9* -- 3.1* ALK PHOS Units/L -- 106 -- -- 111 -- 114 ALT Units/L -- 47 -- -- 59* -- 65* AST Units/L -- 20 -- -- 31 -- 29 BILIRUBIN TOTAL mg/dL -- 0.4 -- -- 0.5 -- 0.5 < > = values in this interval not displayed. EKG: No results found for this or any previous visit. RADIOLOGY: No results found. 1. Debility: Complicated recent medical course. Comprehensive rehab program. 2. L1 abscess s/p debridement with MRSA empyema: Pain control. F/u with surgery team. Complete course of bactrim. Chest tube out 3. Respiratory failure: S/p trach, decannulated. Aggressive pulm toilet. BDs/inhaled steroids. Dr Espino following. NIPPV as required. H/o COPD and prior tobacco abuse. 4. Dysphagia: S/p PEG. TOWING PILOT, RD f/u. Aspiration precautions 5. Dm2: A1c 4.7%. Metformin held. SSI, accuchecks. RD eval. 6. CAD: ASA, statin, BBlocker 7. HTN: Metoprolol, bumex 8. Afib: Eliquis, amio, metoprolol 9. Urinary retention: Flomax, monitor UOP 10. Dyslipid; Statin 11. Anemia: ACD and ABLA. Monitor cbc, transfuse for hgb under 7 or if symptomatic. Thank you for involving me in this patient's care. I will continue to follow along with you. ?? DVT Prophylaxis: Eliquis ?? GI prophylaxis: PPI ?? Code Status Full Code 35 min were spent in the care of this patient today; this may have included family conferences, nursing conferences and discussion with any consultants Adam Pastor M.D. * Katiana Ayers RRT - 10/27/2017 9:06 PM CDT Pt resting in bed on 2L nc. No complaints of distress at this time. Will continue meds as ordered. Will continue to monitor and titrate O2 as tolerated. * Rachna Burt MD - 10/27/2017 10:39 AM CDT [facility] Medicine Progress Note NAME: José Miguel Jang AGE: 66 y.o. : 1950 Date of Note: 10/27/2017 REHABILITATION PROGRESS NOTE Physician Physical Assessment/ Progress Note Rehab Impairment Code: Impairment Code Group: Debility Date of onset: Date of Onset: 07/29/17 Date of admission: 10/24/2017 Subjective: Slept well. Doing well with therapy. Tolerating BiPAP. Generalized weakness. Motivated. Max assist for transfers. Using standing frame. Back incision c/d/i. Wound care following. Continent of bowel and bladder. Tolerates BIPBP Trach stoma closing. On bactrim for stenotrophomonas maltophilia pna. Pulmonology following. On eliquis. Glucose overall controlled. IM following. No fever chills, chest pain , or acute sob. PHYSICAL EXAMINATION: Vitals: 10/26/17 2350 10/27/17 0416 10/27/17 0704 10/27/17 0745 BP: 121/69 140/86 105/69 BP Location: Right arm Patient Position: Lying Pulse: 105 103 110 Resp: 20 Temp: 36.7 ??C (98 ??F) TempSrc: Oral SpO2: 100% 99% Weight: Height: Physical exam:?? GENERAL: Pleasant and in no acute distress MENTAL STATUS: ??Awake, alert and oriented to person, place and time with normal attention span, insight, and concentration. ??Naming and repetition are normal. ??Remote and recent memory intact. ??Fund of knowledge is appropriate. SPEECH: ??Fluent, non-dysarthric, no aphasia noted CRANIAL NERVES: Visual herrera are full on confrontation. ??Pupils are equally round and reactive tolight??bilaterally. Extraocular movements are??full and intact. No nystagmus is noted. ??There is no loss of sensation over the face. ??There is no facial weakness or asymmetry. ??Hearing intact bilaterally to finger rubbing. Uvula and palate elevate in the midline. Shoulder shrug is symmetric. ??Tongue protrudes in the midline. MOTOR: Generalized weakness. Moves all extremities. BL LE: hip flexors 3/5, knee extension and flexion 4/5, BL DF 3/5 Bulk and tone are nomal. ??No abnormal movements are noted. REFLEXES: 1+ and symmetric in bilateral upper extremities. SENSORY: Intact to light??touch in all four extremities.?No extinction with bilateral stimulation. COORDINATION: ??Normal GAIT AND STATION: Not tested, per therapy notes CARDIOVASCULAR: Regular rate and rhythm. ??No murmurs, rubs, gallops or carotid bruits. LUNGS: Clear to auscultation bilaterally. No wheezes, rhonchi or rales. ABDOMEN: ??Soft and non-tender.?Normal bowel sounds were noted. EXTREMITIES: ??No edema, back incision dehisced IMPRESSION: Rehab Diagnosis: Respiratory Failure Impairment Code Group: Debility Physician Problem List/ Comorbidities: Active Problems: Chronic atrial fibrillation ([facility]) Former smoker COPD (chronic obstructive pulmonary disease) ([facility]) Hypercapnic respiratory failure ([facility]) Diskitis Pneumonia Hyponatremia MEDICAL PLAN: 1. Debility: ??Complicated recent medical course. ??Comprehensive inpatient rehabilitation, family training, structured environment. 2. 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 ??F/u with surgery team. ??Complete course of bactrim. ??Chest tube out. Wound care following back incision. 3. Respiratory failure: ??S/p trach, decannulated. ??Aggressive pulm toilet. ??BDs/inhaled steroids. ??Dr Espino following. NIPPV as required. ??H/o COPD and prior tobacco abuse. 4. Dysphagia: ??S/p PEG. ??TOWING PILOT, RD f/u. ??Aspiration precautions 5. Dm2: ??A1c 4.7%: prudent diet, diabetic education. ??Metformin, SSI, accuchecks. ??RD eval. 6. CAD: ??ASA, statin, BBlocker 7. HTN: ??Metoprolol, bumex 8. Afib: ??Eliquis, amio, metoprolol 9. Urinary retention: ??Flomax, monitor UOP 10. Dyslipid; ??Statin 11. Anemia: ??ACD and ABLA. ??Monitor cbc, transfuse for hgb under 7 or if symptomatic. 12. Nutrition: rd consult. ?? * DVT prophylaxsis: eliquis * GI prophylaxsis: ppi CODE STATUS: Full Code ALLERGY: Allergies Allergen Reactions ??? Penicillins Current Facility-Administered Medications: ??? acetaminophen (TYLENOL) tablet 650 mg, 650 mg, oral, Q4H PRN, Rachna Burt MD, 650 mg at 10/27/17 0955 ??? albuterol (PROVENTIL,VENTOLIN) 2.5 mg/0.5 mL nebulizer solution 5 mg, 5 mg, nebulization, Q6H PRN, Rachna Burt MD ??? amiodarone (PACERONE) tablet 200 mg, 200 mg, oral, BID, Rachna Burt MD, 200 mg at ??? apixaban (ELIQUIS) tablet 5 mg, 5 mg, oral, BID, Rachna Burt MD, 5 mg at 10/27/17 0750 ??? ascorbic acid (VITAMIN C) tablet/chewable tablet 500 mg, 500 mg, oral, BID, Rachna Burt MD, 500 mg at 10/27/17 0749 ??? aspirin enteric coated tablet 81 mg, 81 mg, oral, Daily, Rachna Burt MD, 81 mg at ??? atorvastatin (LIPITOR) tablet 20 mg, 20 mg, oral, Daily, Rachna Burt MD, 20 mg at ??? bisacodyl (DULCOLAX) suppository 10 mg, 10 mg, rectal, Daily PRN, Rachna Burt MD ??? budesonide-formoterol (SYMBICORT) 80-4.5 mcg/actuation inhaler 1 puff, 1 puff, inhalation, BID (RT), Rachna Burt MD, 1 puff at 10/27/17 0704 ??? [START ON 10/28/2017] bumetanide (BUMEX) tablet 0.25 mg, 0.25 mg, oral, Daily, Adam Pastor MD ??? chlorhexidine (PERIDEX) 0.12 % solution 5 mL, 5 mL, mouth/throat, BID, Rachna Burt MD, 5 mL at 10/27/17 0752 ??? collagenase 250 unit/gram ointment, , topical, Daily, Rachna Burt MD ??? dextrose (GLUTOSE) 40 % gel 15 g, 15 g, oral, Q15 Min PRN, Jason Shore Jr., OWNER/PHOTOGRAPHER ??? dextrose 50% (concentrated solution) CONCENTRATED solution 25 g, 25 g, intravenous, Q15 Min PRN, Jason Shore Jr., OWNER/PHOTOGRAPHER ??? diphenhydrAMINE (BENADRYL) tab/cap 25 mg, 25 mg, oral, TID PRN, Rachna Burt MD ??? docusate sodium (COLACE) capsule 100 mg, 100 mg, oral, BID, Rachna Burt MD, 100 mg at 10/27/17 0749 ??? ergocalciferol (VITAMIN D) capsule 50,000 Units, 50,000 Units, oral, Weekly, Adam Pastor MD, 50,000 Units at 10/26/17 0802 ??? glucagon injection 1 mg, 1 mg, intramuscular, Q30 Min PRN, Jason Shore Jr., OWNER/PHOTOGRAPHER ??? insulin lispro (HumaLOG) injection 1-2 Units, 1-2 Units, subcutaneous, Nightly, Jason Lilly, OWNER/PHOTOGRAPHER ??? insulin lispro (HumaLOG) injection 1-3 Units, 1-3 Units, subcutaneous, TID with meals, Jason Shore Jr., OWNER/PHOTOGRAPHER ??? ipratropium-albuterol (DUO-NEB) 0.5-2.5 mg/3 mL nebulizer solution 3 mL, 3 mL, nebulization, QID (RT), Александр Espino Jr., MD, 3 mL at 10/27/17 0704 ??? metoprolol (LOPRESSOR) tablet 12.5 mg, 12.5 mg, oral, BID, Rachna Burt MD, 12.5 mg at 10/27/17 0746 ??? miconazole 2 % powder, , topical, BID, Rachna Burt MD ??? ondansetron (ZOFRAN) tablet 4 mg, 4 mg, oral, Q4H PRN, Rachna Burt MD ??? oxyCODONE (ROXICODONE) tablet 10 mg, 10 mg, oral, Q4H PRN, Rachna Burt MD ??? oxyCODONE (ROXICODONE) tablet 5 mg, 5 mg, oral, Q4H PRN, Rachna Burt MD ??? pantoprazole DR (PROTONIX) extended release tablet 40 mg, 40 mg, oral, Daily, Rachna Burt MD, 40 mg at 10/27/17 0745 ??? polyethylene glycol (MIRALAX) packet 17 g, 17 g, oral, Daily PRN, Rachna Burt MD ??? senna (SENOKOT) tablet 1 tablet, 1 tablet, oral, Daily, Rachna Burt MD, 1 tablet at 10/27/17 0749 ??? sulfamethoxazole-trimethoprim (BACTRIM,SEPTRA) 800-160 mg per tablet 1 tablet, 1 tablet, oral, BID, Rachna Burt MD, 1 tablet at 10/27/17 0752 ??? tamsulosin (FLOMAX) extended release capsule 0.4 mg, 0.4 mg, oral, Nightly, Rachna Burt MD, 0.4 mg at 10/26/17 2234 ??? zinc sulfate (ZINCATE) capsule 220 mg, 220 mg, oral, Daily, Rachna Burt MD, 220 mg at 10/27/17 0752 ??? zolpidem (AMBIEN) tablet 5 mg, 5 mg, oral, Nightly PRN, Rachna Burt MD, 5 mg at 10/26/17 2225 Current functional status: PT Functional Mobility: AM: WC-->standing frame with total assist x2 via garrett lift, 30 minutes spent standing in standing frame while working on upright posture and balloon batting and performingBIL UE reaching/ROM tasks, standing frame-->therapy mat with total assist x2 via garrett lift, supine active and PROM SARAH LE exercises, mat-->WC with total assist x2 via garrett lift. PM: rolls BILx2 reps to place garrett pad - with minimum assist and SARAH bedrails required, bed-->WC with total assist x2 via garrett lift, propels WC 150' + 140' with minimum assist, VCs for technique on turns, and much extra time due to debility and fatigue, propels LE ergometer with max assist x15 minutes withrest breaks and SARAH feet acewrapped onto the ergometer pedals as pt too weak to manage his SARAH footposition, etc. Pt on 2L/min O2 with all activity and given rest breaks as needed. Pt w/ very limited active ROM w/ SARAH LEs in supine, and left LE continues to demonstrate more weakness than right LE.Pt initially had some SARAH hip pain/stiffness with PROM hip flexion, but this subsided and pt statedthe PROM felt good. Pt continues to require total assist x2 via garrett lift for all transfers for safety at this time, and is unable to safely stand or walk. Pt tolerated extended time in standing frame very well, denying any dizziness, lightheadedness, or weakness. Pt able to complete balloon batting, UE reaching tasks, and worked on scapular retraction for improved posture, all while supported in standing frame. Pt w/ improved endurance for WC propulsion as well. Pt had great difficulty with SARAH LE ergometer, needing to have SARAH feet wrapped/attached to the pedals, and max assist requried from PT to complete a revolution w/ the pedals. Pt able to complete backwards revolutions w/ supervision to minimum assist, and max assist for forwards revolutions due to SARAH quad weakness, more weak than SARAH hamstrings. Pt is cooperative and highly motivated, and is progressing towards goals. Continue per plan of care. OT Functional Mobility: Pt. completes supine to sit max assist and 2 person DEP for sit to stand with manual stand aid OT Self Care: DEP to minimal assist for self care with 1 to 2 people. Pt using rolling shower chairwith sarah supports and manual stand aid 2 person with LE dressing. Pt demonstrates general decreasedbalance, endurance, strength and sensation. Pt will benefit from continued skilled OT to promote IND toward goals. OT Cognition: Appears WNL OT Communication: decreased vocal strength at times. TOWING PILOT Cognition: WFL TOWING PILOT Communication: WFL TOWING PILOT Swallowing: Mild: Mechanical soft consistency with thin liquids Patient/caregiver goals:Patient and Family Goals: to return home with assistance Pre hospital Living environment: Home Setting: Split level home Prehospital Lives With: Spouse;Adult children REVIEW OF DATA: Recent Results (from the past 24 hour(s)) Glucose POC Collection Time: 10/26/17 12:02 PM Result Value Ref Range Glucose, POC, bld 106 70 - 140 mg/dL Glucose POC Collection Time: 10/26/17 5:01 PM Result Value Ref Range Glucose, POC, bld 131 70 - 140 mg/dL Glucose POC Collection Time: 10/26/17 10:33 PM Result Value Ref Range Glucose, POC, bld 121 70 - 140 mg/dL Comprehensive metabolic panel Collection Time: 10/27/17 3:57 AM Result Value Ref Range Sodium 132 (L) 135 - 145 mmol/L Potassium 4.3 3.3 - 4.9 mmol/L CO2 26 22 - 32 mmol/L BUN 17 8 - 25 mg/dL Glucose 87 70 - 199 mg/dL Creatinine 0.89 0.80 - 1.30 mg/dL Calcium 8.8 8.5 - 10.3 mg/dL Chloride 96 (L) 97 - 110 mmol/L Albumin 2.9 (L) 3.5 - 5.0 g/dL AST 31 10 - 50 Units/L ALT 59 (H) 7 - 55 Units/L Alk phos 111 40 - 130 Units/L Bilirubin 0.5 0.1 - 1.2 mg/dL Protein, pl 5.3 (L) 6.5 - 8.5 g/dL Anion Gap 10 2 - 15 mmol/L eGFR Collection Time: 10/27/17 3:57 AM Result Value Ref Range GFR 88 mL/min/1.73 m2 Glucose POC Collection Time: 10/27/17 6:18 AM Result Value Ref Range Glucose, POC, bld 90 70 - 140 mg/dL REVIEW OF IMAGING: Imaging (Last 96 hours) 10/22 1037 XR Chest 1 Vw REHABILITATION DIAGNOSIS: Impairment Code Group: Debility REHAB PLAN OF CARE: The Interdisciplinary Team will work collaboratively to address the patient problems and goals to be managed by the Individualized Interdisciplinary Plan of Care. Rehabilitation Precautions/Restrictions: Falls;MRSA colonization;Isolation Multi-Disciplinary Problems Active Problems Problem: Health Behavior: Start Date: 10/24/17 Goal Start Date End Date Understanding of discharge needs will improve 10/24/17 -- Goal Intervention Frequency Start Date End Date Discuss information regarding discharge instructions -- 10/24/17 -- Goal Intervention Frequency Start Date End Date Identify discharge learning needs (meds, wound care, etc) -- 10/24/17 -- Goal Intervention Frequency Start Date End Date Collaborate with case management -- 10/24/17 -- Intervention Details: (Coordinate discharge planning if the patient needs post- hospital services onphysician order or complex needs related to functional status, cognitive ability, or social supportsystem) Goal Intervention Frequency Start Date End Date Arrange for needed discharge resources and transportation as appropriate -- 10/24/17 -- Goal Intervention Frequency Start Date End Date Identify discharge barriers -- 10/24/17 -- Goal Intervention Frequency Start Date End Date Collaborate with spanish interpreter -- 10/24/17 -- Problem: Lack of Knowledge: Start Date: 10/25/17 Goal Start Date End Date Ability to state ways to decrease the risk of falls will improve 10/25/17 -- Goal Intervention Frequency Start Date End Date Teach fall prevention measures -- 10/25/17 -- Goal Intervention Frequency Start Date End Date Teach information regarding appropriate environmental changes -- 10/25/17 -- Problem: Safety: Start Date: 10/25/17 Goal Start Date End Date Will remain free from falls 10/25/17 -- Goal Intervention Frequency Start Date End Date Assess risk factors for falls -- 10/25/17 -- Intervention Details: (including medications) Goal Intervention Frequency Start Date End Date Implement fall prevention measures -- 10/25/17 -- Goal Intervention Frequency Start Date End Date Collaborate with other disciplines -- 10/25/17 -- Intervention Details: (PT, OT, Pharmacy, MD, etc.) Goal Start Date End Date Will remain free from injury from falls 10/25/17 -- Goal Intervention Frequency Start Date End Date Provide safe environment for conduction of activities of daily living -- 10/25/17 -- Goal Start Date End Date Will remain free from falls and injury in home environment 10/25/17 -- Goal Intervention Frequency Start Date End Date Assess environmental risk factors -- 10/25/17 -- Problem: Activity: Start Date: 10/25/17 Goal Start Date End Date Mobility will improve 10/25/17 -- Goal Intervention Frequency Start Date End Date Encourage mobilization to extent of ability -- 10/25/17 -- Goal Intervention Frequency Start Date End Date Perform repositioning -- 10/25/17 -- Goal Intervention Frequency Start Date End Date Collaborate with physical therapy -- 10/25/17 -- Problem: Lack of Knowledge: Start Date: 10/25/17 Goal Start Date End Date Understanding of ways to prevent future skin breakdown will improve 10/25/17 -- Goal Intervention Frequency Start Date End Date Discuss precautions to protect skin integrity -- 10/25/17 -- Goal Intervention Frequency Start Date End Date Discuss treatment plan for related conditions -- 10/25/17 -- Goal Start Date End Date Ability to identify appropriate dietary choices will improve 10/25/17 -- Goal Intervention Frequency Start Date End Date Discuss dietary adjustments -- 10/25/17 -- Problem: Nutritional: Start Date: 10/25/17 Goal Start Date End Date Dietary intake will improve 10/25/17 -- Goal Intervention Frequency Start Date End Date Assess nutritional status -- 10/25/17 -- Goal Intervention Frequency Start Date End Date Collaborate with dietitian -- 10/25/17 -- Goal Intervention Frequency Start Date End Date Assist appropriate dietary choices -- 10/25/17 -- Goal Start Date End Date Ability to maintain a balanced intake and output will improve 10/25/17 -- Goal Intervention Frequency Start Date End Date Assess intake and output -- 10/25/17 -- Problem: Skin Integrity: Start Date: 10/25/17 Goal Start Date End Date Risk for impaired skin integrity will decrease 10/25/17 -- Goal Intervention Frequency Start Date End Date Identify risk factors for impaired skin integrity and/or pressure injuries -- 10/25/17 -- Goal Intervention Frequency Start Date End Date Monitor medication effects -- 10/25/17 -- Goal Intervention Frequency Start Date End Date Implement precautions to protect skin integrity -- 10/25/17 -- Goal Intervention Frequency Start Date End Date Use moisturizing agent to dry skin -- 10/25/17 -- Goal Intervention Frequency Start Date End Date Perform cleansing of skin when soiled -- 10/25/17 -- Goal Intervention Frequency Start Date End Date Provide pressure-relief bed or mattress -- 10/25/17 -- Goal Start Date End Date Ability to demonstrate warm and dry skin will improve 10/25/17 -- Goal Intervention Frequency Start Date End Date Monitor skin integrity, appearance and/or temperature -- 10/25/17 -- Goal Start Date End Date Circulation will improve to fullest extent possible 10/25/17 -- Goal Intervention Frequency Start Date End Date Assess circulation, sensation and/or motion of extremity -- 10/25/17 -- Problem: Bladder/Voiding Start Date: 10/25/17 Goal Start Date End Date LTG - Patient will achieve acceptable level of continence 10/25/17 -- Goal Start Date End Date STG - Patient demonstrates no accidents 10/25/17 -- Goal Intervention Frequency Start Date End Date Encourage toileting PRN 10/25/17 -- Goal Intervention Frequency Start Date End Date Educate patient about medications PRN 10/25/17 -- Problem: Bowel Elimination Start Date: 10/25/17 Goal Start Date End Date LTG - Patient will have regular and routine bowel evacuation 10/25/17 -- Goal Start Date End Date LTG - Patient will complete bowel elimination 10/25/17 -- Goal Start Date End Date STG - Patient maintains skin integrity 10/25/17 -- Goal Intervention Frequency Start Date End Date Educate patient about ostomy appliances, correct application, protection of skin PRN 10/25/17 -- Goal Start Date End Date STG - Patient will verbalize signs and symptoms of constipation and how to prevent/alleviate 10/25/17 -- Goal Intervention Frequency Start Date End Date Encourage use of aids (stool softener, laxative, suppository) PRN 10/25/17 -- Goal Intervention Frequency Start Date End Date Encourage adjustment and monitoring of fluid intake PRN 10/25/17 -- Goal Intervention Frequency Start Date End Date Teach patient about symptoms of impaction PRN 10/25/17 -- Goal Intervention Frequency Start Date End Date Educate patient about effect of fluid intake on bowel movement PRN 10/25/17 -- Goal Intervention Frequency Start Date End Date Educate patient about adequate fluid intake PRN 10/25/17 -- Goal Start Date End Date STG - Patient will be continent of stool 10/25/17 -- Goal Start Date End Date STG - Patient verbalizes knowledge about relationship between diet, fluid intake, activity and medication on constipation 10/25/17 -- Goal Intervention Frequency Start Date End Date Educate patient about medications PRN 10/25/17 -- Goal Intervention Frequency Start Date End Date Educate patient about adequate fluid intake PRN 10/25/17 -- Problem: Breathing Start Date: 10/25/17 Goal Start Date End Date STG - Respiratory rate and effort will be within normal limits for the patient 10/25/17 -- Goal Intervention Frequency Start Date End Date Provide oxygen therapy as ordered PRN 10/25/17 -- Goal Intervention Frequency Start Date End Date Monitor oygen saturation PRN 10/25/17 -- Goal Intervention Frequency Start Date End Date Encourage incentive spirometer x 10 each hour while awake PRN 10/25/17 -- Goal Intervention Frequency Start Date End Date Encourage/perform oral hygiene as appropriate PRN 10/25/17 -- Goal Intervention Frequency Start Date End Date Collaborate with respiratory therapy to administer medications/treatments PRN 10/25/17 -- Goal Start Date End Date STG - Patient/family will be able to verbalize oxygen safety precautions 10/25/17 -- Goal Intervention Frequency Start Date End Date Educate patient about oxygen PRN 10/25/17 -- Goal Start Date End Date STG - Patient will utilize incentive spirometer 10/25/17 -- Goal Intervention Frequency Start Date End Date Encourage incentive spirometer x 10 each hour while awake PRN 10/25/17 -- Goal Intervention Frequency Start Date End Date Encourage use of incentive spirometer PRN 10/25/17 -- Goal Start Date End Date STG - Patient performs or directs assisted coughing 10/25/17 -- Goal Intervention Frequency Start Date End Date Instruct on coughing and deep breathing PRN 10/25/17 -- Goal Intervention Frequency Start Date End Date Educate patient about forced cough PRN 10/25/17 -- Goal Intervention Frequency Start Date End Date Teach patient about assistive cough PRN 10/25/17 -- Problem: Pain Start Date: 10/25/17 Goal Start Date End Date STG - Pain is manageable through therapies 10/25/17 -- Goal Start Date End Date STG - Patient will verbalize an acceptable level of pain 10/25/17 -- Problem: OT Misc Start Date: 10/25/17 Goal Start Date End Date [facility] [place] [facility] 10/25/17 -- Goal Details: Pt to dress modified IND Goal Start Date End Date [facility] [place] 2 10/25/17 -- Goal Details: Pt to groom modified IND Goal Start Date End Date [facility] [place] 3 10/25/17 -- Goal Details: Pt to bathe with transfer modified IND Goal Start Date End Date [facility] [place] 4 10/25/17 -- Goal Details: Pt to toilet with transfer modified IND Goal Start Date End Date [facility] [place] 5 10/25/17 -- Goal Details: Pt to complete UE HEP with IND to promote IND with self care and functional transfers Problem: TOWING PILOT [facility] [place] Start Date: 10/25/17 Goal Start Date End Date [facility] [place] 1 10/25/17 -- Goal Details: Patient will tolerate regular consistency with thin liquids without clinical overt s/s of aspiration. Goal Start Date End Date [facility] [place] 2 10/25/17 -- Goal Details: Patient will complete 3 sets of 10 pharyngeal strengthening exercises Problem: Cognitive: Start Date: 10/25/17 Goal Start Date End Date [facility] 1 10/25/17 -- Goal Details: Patient will execute multiple elements of a task with supervision Goal Start Date End Date [facility] 2 10/25/17 -- Goal Details: Patient will increase problem solving to complete tasks at 90% or with supervision Problem: Physical Regulation: Start Date: 10/25/17 Goal Start Date End Date [facility] 3 10/25/17 -- Goal Details: Patient will increase general strength/coordination through various exercises with supervision until disch Problem: Respiratory: Start Date: 10/25/17 Goal Start Date End Date [facility] 4 10/25/17 -- Goal Details: Patient will maintain/increase SPO2 by 1% in at least one session prior to disch Goal Start Date End Date [facility] 5 10/25/17 -- Goal Details: Patient will increase pulmonary function through various exercises with supervision until disch Problem: PT [facility] [place] Start Date: 10/25/17 Goal Start Date End Date [facility] [place] 1 10/25/17 -- Goal Details: Pt will roll SARAH and supine<-->sit EOB with supervision and bedrails as needed.Pt will sit<-->stand with minimum assist and appropriate assistive device. Pt will transfer bed<-->wheelchair/chair with minimum assist and appropriate assistive device. Goal Start Date End Date [facility] 2 10/25/17 -- Goal Details: Pt will ambulate 150' w/ minimum assist and appropriate assistive device. Pt will ambulate up/down 4 stairs with mod assist and SARAH rails. Goal Start Date End Date [facility] 3 10/25/17 -- Goal Details: Pt will propel WC 150' with supervision and extra time. Goal Start Date End Date [facility] [place] 4 10/25/17 -- Goal Details: Pt will complete SARAH LE HEP x15 reps with supervision. Goal Start Date End Date [facility] - [facility] – [place] 5 10/25/17 -- Goal Details: Pt and/or family will verbalize and demonstrate understanding of pt's safety and mobility needs upon discharge. * Александр Espino Jr., MD - 10/27/2017 7:54 AM CDT Pulmonary / Critical Care Daily Progress Chief Complaint/HPI/Hospital Course: Up in chair. Good night. Tolerating BiPAP. Physical therapy. Able to stand. Only a few steps.. Peg tube is been in 6 weeks. Evaluate for removal Review of Systems: Review of Systems Constitutional: Negative for chills, fatigue and fever. HENT: Negative for congestion, sore throat and trouble swallowing. Respiratory: Positive for shortness of breath. Negative for cough, chest tightness and wheezing. Cardiovascular: Negative for chest pain and leg swelling. Gastrointestinal: Negative for diarrhea, nausea and vomiting. Genitourinary: Negative for dysuria and hematuria. Neurological: Positive for weakness. Negative for dizziness and headaches. Psychiatric/Behavioral: Negative for behavioral problems and sleep disturbance. Temp: [36.6 ??C (97.8 ??F)-36.7 ??C (98 ??F)] 36.7 ??C (98 ??F) Pulse: [98-121] 110 Resp: [20] 20 BP: (104-140)/(59-86) 105/69 FiO2 (%): [35 %] 35 % I/O last 2 completed shifts: In: 580 [P.O.:580] Out: 700 [Urine:700] No intake/output data recorded. Oxygen / Pulmonary Events Vent settings for last 24 hours: FiO2 (%): [35 %] 35 % Oxygen Therapy SpO2: 99 % O2 Therapy: Supplemental oxygen O2 Del Method: CPAP/Bi-PAP mask FiO2 (%): 35 % O2 Flow Rate (L/min): 2 L/min] Physical exam: Physical Exam Constitutional: He is oriented to person, place, and time. He appears well- developed. No distress. HENT: Head: Normocephalic. Mouth/Throat: Oropharynx is clear and moist. Eyes: Pupils are equal, round, and reactive to light. Right eye exhibits no discharge. Left eye exhibits no discharge. Cardiovascular: Regular rhythm and normal heart sounds. Tachycardia present. Pulmonary/Chest: Effort normal and breath sounds normal. He has no wheezes. He has no rales. Abdominal: There is no rebound and no guarding. Peg Musculoskeletal: He exhibits edema. Neurological: He is alert and oriented to person, place, and time. Psychiatric: He has a normal mood and affect. Current Facility-Administered Medications: ??? acetaminophen (TYLENOL) tablet 650 mg, 650 mg, oral, Q4H PRN, Rachna Burt MD, 650 mg at 10/26/17 1051 ??? albuterol (PROVENTIL,VENTOLIN) 2.5 mg/0.5 mL nebulizer solution 5 mg, 5 mg, nebulization, Q6H PRN, Rachna Burt MD ??? amiodarone (PACERONE) tablet 200 mg, 200 mg, oral, BID, Rachna Burt MD, 200 mg at ??? apixaban (ELIQUIS) tablet 5 mg, 5 mg, oral, BID, Rachna Burt MD, 5 mg at 10/27/17 0750 ??? ascorbic acid (VITAMIN C) tablet/chewable tablet 500 mg, 500 mg, oral, BID, Rachna Burt MD, 500 mg at 10/27/17 0749 ??? aspirin enteric coated tablet 81 mg, 81 mg, oral, Daily, Rachna Burt MD, 81 mg at ??? atorvastatin (LIPITOR) tablet 20 mg, 20 mg, oral, Daily, Rachna Burt MD, 20 mg at ??? bisacodyl (DULCOLAX) suppository 10 mg, 10 mg, rectal, Daily PRN, Rachna Burt MD ??? budesonide-formoterol (SYMBICORT) 80-4.5 mcg/actuation inhaler 1 puff, 1 puff, inhalation, BID (RT), Rachna Burt MD, 1 puff at 10/27/17 0704 ??? [START ON 10/28/2017] bumetanide (BUMEX) tablet 0.25 mg, 0.25 mg, oral, Daily, Adam Pastor MD ??? chlorhexidine (PERIDEX) 0.12 % solution 5 mL, 5 mL, mouth/throat, BID, Rachna Burt MD, 5 mL at 10/26/176 ??? collagenase 250 unit/gram ointment, , topical, Daily, Rachna Burt MD ??? dextrose (GLUTOSE) 40 % gel 15 g, 15 g, oral, Q15 Min PRN, Jason Shore Jr., OWNER/PHOTOGRAPHER ??? dextrose 50% (concentrated solution) CONCENTRATED solution 25 g, 25 g, intravenous, Q15 Min PRN, Jason Shore Jr., OWNER/PHOTOGRAPHER ??? diphenhydrAMINE (BENADRYL) tab/cap 25 mg, 25 mg, oral, TID PRN, Rachna Burt MD ??? docusate sodium (COLACE) capsule 100 mg, 100 mg, oral, BID, Rachna Burt MD, 100 mg at 10/27/17 0749 ??? ergocalciferol (VITAMIN D) capsule 50,000 Units, 50,000 Units, oral, Weekly, Adam Pastor MD, 50,000 Units at 10/26/17 0802 ??? glucagon injection 1 mg, 1 mg, intramuscular, Q30 Min PRN, Jason Shore Jr., OWNER/PHOTOGRAPHER ??? insulin lispro (HumaLOG) injection 1-2 Units, 1-2 Units, subcutaneous, Nightly, Jason Lilly, OWNER/PHOTOGRAPHER ??? insulin lispro (HumaLOG) injection 1-3 Units, 1-3 Units, subcutaneous, TID with meals, Jason Shore Jr., OWNER/PHOTOGRAPHER ??? ipratropium-albuterol (DUO-NEB) 0.5-2.5 mg/3 mL nebulizer solution 3 mL, 3 mL, nebulization, QID (RT), Александр Espino Jr., MD, 3 mL at 10/27/17 0704 ??? metoprolol (LOPRESSOR) tablet 12.5 mg, 12.5 mg, oral, BID, Rachna Burt MD, 12.5 mg at 10/27/17 0746 ??? miconazole 2 % powder, , topical, BID, Rachna Burt MD ??? ondansetron (ZOFRAN) tablet 4 mg, 4 mg, oral, Q4H PRN, Rachna Burt MD ??? oxyCODONE (ROXICODONE) tablet 10 mg, 10 mg, oral, Q4H PRN, Rachna Burt MD ??? oxyCODONE (ROXICODONE) tablet 5 mg, 5 mg, oral, Q4H PRN, Rachna Burt MD ??? pantoprazole DR (PROTONIX) extended release tablet 40 mg, 40 mg, oral, Daily, Rachna Burt MD, 40 mg at 10/27/17 0745 ??? polyethylene glycol (MIRALAX) packet 17 g, 17 g, oral, Daily PRN, Rachna Burt MD ??? senna (SENOKOT) tablet 1 tablet, 1 tablet, oral, Daily, Rachna Burt MD, 1 tablet at 10/27/17 0749 ??? sulfamethoxazole-trimethoprim (BACTRIM,SEPTRA) 800-160 mg per tablet 1 tablet, 1 tablet, oral, BID, Rachna Burt MD, 1 tablet at 10/27/17 0752 ??? tamsulosin (FLOMAX) extended release capsule 0.4 mg, 0.4 mg, oral, Nightly, Rachna Burt MD, 0.4 mg at 10/26/17 2234 ??? zinc sulfate (ZINCATE) capsule 220 mg, 220 mg, oral, Daily, Rachna Burt MD, 220 mg at 10/27/17 0752 ??? zolpidem (AMBIEN) tablet 5 mg, 5 mg, oral, Nightly PRN, Rachna Burt MD, 5 mg at 10/26/17 2225 Labs: Labs reviewed: Hypercapnic, hypoxemic respiratory failure. Mild hyponatremia Recent Results (from the past 24 hour(s)) Glucose POC Collection Time: 10/26/17 12:02 PM Result Value Ref Range Glucose, POC, bld 106 70 - 140 mg/dL Glucose POC Collection Time: 10/26/17 5:01 PM Result Value Ref Range Glucose, POC, bld 131 70 - 140 mg/dL Glucose POC Collection Time: 10/26/17 10:33 PM Result Value Ref Range Glucose, POC, bld 121 70 - 140 mg/dL Comprehensive metabolic panel Collection Time: 10/27/17 3:57 AM Result Value Ref Range Sodium 132 (L) 135 - 145 mmol/L Potassium 4.3 3.3 - 4.9 mmol/L CO2 26 22 - 32 mmol/L BUN 17 8 - 25 mg/dL Glucose 87 70 - 199 mg/dL Creatinine 0.89 0.80 - 1.30 mg/dL Calcium 8.8 8.5 - 10.3 mg/dL Chloride 96 (L) 97 - 110 mmol/L Albumin 2.9 (L) 3.5 - 5.0 g/dL AST 31 10 - 50 Units/L ALT 59 (H) 7 - 55 Units/L Alk phos 111 40 - 130 Units/L Bilirubin 0.5 0.1 - 1.2 mg/dL Protein, pl 5.3 (L) 6.5 - 8.5 g/dL Anion Gap 10 2 - 15 mmol/L eGFR Collection Time: 10/27/17 3:57 AM Result Value Ref Range GFR 88 mL/min/1.73 m2 Glucose POC Collection Time: 10/27/17 6:18 AM Result Value Ref Range Glucose, POC, bld 90 70 - 140 mg/dL Imaging: No results found. Diagnostics: Ejection fraction 65%. No vegetations. Mild left atrial enlarged Microbiology: Positive sputum culture for stenotrophomonas Assessment & Plan: Assessment/Plan Hyponatremia Assessment & Plan Mild hyponatremia, hypochloremia. Some edema on exam. Follow while on diuretic. Pneumonia Assessment & Plan Completed treatment for pneumonia, empyema prior to transfer to [facility]. Currently on Bactrim for stenotrophomonas pneumonia. Chest x-ray improved Diskitis Assessment & Plan Completed debridement, prolonged antibiotic therapy for an L1 diskitis. Has had some back pain. Hypercapnic respiratory failure ([facility]) Assessment & Plan Successfully decannulated. FiO2 to maintain a saturation of 90%. Continue BiPAP at night. Eventual evaluation for home noninvasive positive pressure ventilation at night COPD (chronic obstructive pulmonary disease) ([facility]) Assessment & Plan Pulmonary function testing when stable. Continue inhaled bronchodilator therapy. Former smoker Assessment & Plan May meet criteria for lung cancer screen Chronic atrial fibrillation ([facility]) Assessment & Plan Hemodynamically stable. Has had problems with intermittent bleeding from trach site, skin tears andalso hematuria while in [facility]. Continues on apixaban. Monitor for bleeding. Consider urology consultation if hematuria reoccur. Continue amiodarone, aspirin, Lipitor, metoprolol. For today: Monitor urine output, renal function. Hyponatremia, hypochloremia may be diuretic induced. Some edema on exam. Will discontinue Bactrim soon. Spoke with nurse. Evaluation for PEG removal underway. Prophylaxis: DVT ppx: Long-term oral anticoagulation At Code Status: Full Code. Александр Espino Jr., MD 10/27/2017 7:59 AM This note was transcribed using Speech Recognition software. As a result, there may be grammatical and spelling errors that are unintended. Every attempt is made to have correct dictation. If there are any questions or major errors, please contact me * Adam Pastor MD - 10/27/2017 6:21 AM CDT Internal Medicine Progress Note Adam Pastor M.D. 10/27/2017 Patient Name: José Miguel Jang Admit Date: 10/24/2017 PCP: Briana Medeiros MD Consult requested by Dr Rachna Burt MD Patient Name: José Miguel Jang PCP: Briana Medeiros MD Date of admission: 10/24/2017 Date of Service: 10/27/2017 Reason for Consultation: Medical Management Slept. Compliant with BiPAP. Continue aggressive pulm toilet. Trach stoma care. On Bactrim for Stenotrophomonas maltophilia pneumonia, Dr Espino following. No fever, chills, chest pain, acute SOB. Diffusely weak. Tolerating eliquis. H/H low, but stable. WBC 9. Glc 90-131, hold metformin; A1c 4.7%. SSI prn. Bowel regimen. Vitals acceptable. Na 132 today, hold bumex today and watch vol status PMHx: Past Medical History: Diagnosis Date ??? A-fib (CMS/[facility]) ??? A-fib (CMS/HCC) history ??? Chronic obstructive pulmonary disease (CMS/HCC) COPD ??? Coronary artery disease ??? Diabetes mellitus (CMS/HCC) ??? HX OTHER MEDICAL DJD ??? Hypertension PSurgHx: Past Surgical History: Procedure Laterality Date ??? BACK SURGERY ??? TOTAL HIP ARTHROPLASTY Bilateral ??? TRACHEOSTOMY All: Allergies Allergen Reactions ??? Penicillins Outpt Meds: Prescriptions Prior to Admission Medication Sig Dispense Refill Last Dose ??? acetaminophen (TYLENOL) 325 mg tablet Take 650 mg by mouth every 4 (four) hours as needed for pain. ??? albuterol (PROVENTIL,VENTOLIN) 2.5 mg/0.5 mL solution for nebulization Take 5 mg by nebulization every 6 (six) hours as needed. ??? amiodarone (PACERONE) 200 mg tablet Take 200 mg by mouth 2 (two) times a day. ??? apixaban (ELIQUIS) 5 mg tablet Take 5 mg by mouth 2 (two) times a day. ??? aspirin 81 mg chewable tablet Take 81 mg by mouth daily. ??? atorvastatin (LIPITOR) 20 mg tablet Take 20 mg by mouth daily. ??? bisacodyl (DULCOLAX) 10 mg suppository Insert 10 mg into the rectum every third day. ??? bumetanide (BUMEX) 0.5 mg tablet Take 0.25 mg by mouth daily. ??? chlorhexidine (PERIDEX) 0.12 % solution Apply 5 mL to the mouth or throat 2 (two) times a day. ??? diphenhydrAMINE (BENADRYL) 25 mg capsule Take 25 mg by mouth 3 (three) times a day as needed for itching. ??? docusate (COLACE) liquid 50 mg/5 mL Take 100 mg by mouth daily. ??? famotidine (PEPCID) 20 mg tablet Take 20 mg by mouth 2 (two) times a day. ??? insulin lispro (HumaLOG) 100 unit/mL injection Inject 0-10 Units under the skin 4 (four) times a day (with meals and nightly). Low dose sliding scale ??? LORazepam (ATIVAN) 2 mg/mL injection Infuse 1 mg into a venous catheter every 6 (six) hours as needed for anxiety. ??? metoprolol (LOPRESSOR) 25 mg tablet Take 12.5 mg by mouth 2 (two) times a day. ??? ondansetron (ZOFRAN) 4 mg tablet Take 4 mg by mouth every 4 (four) hours as needed for nausea or vomiting. ??? oxyCODONE (ROXICODONE) 5 mg immediate release tablet Take 5 mg by mouth every 4 (four) hours asneeded. ??? oxyCODONE (ROXICODONE) 5 mg immediate release tablet Take 10 mg by mouth every 4 (four) hours as needed (prn pain scale 7-10). ??? polyethylene glycol (MIRALAX) 17 gram packet Take 17 g by mouth daily as needed. ??? senna (SENOKOT) 8.6 mg tablet Take 1 tablet by mouth daily. ??? sulfamethoxazole-trimethoprim (BACTRIM,SEPTRA) 800-160 mg per tablet Take 1 tablet by mouth 2 (two) times a day. ??? tamsulosin (FLOMAX) 0.4 mg extended release capsule Take 0.4 mg by mouth nightly. ??? zolpidem (AMBIEN) 5 mg tablet Take 5 mg by mouth nightly as needed for sleep. ??? aspirin (ASPIRIN LOW DOSE) 81 mg tablet take 1 Tablet (81MG) by oral route every day 0 Taking ??? budesonide-formoterol (SYMBICORT) 80-4.5 mcg/actuation inhaler Inhale 1 puff 2 (two) times a day. Taking ??? cyanocobalamin, vitamin B-12, 500 mcg lozenge Take by mouth. Taking ??? diclofenac DR (VOLTAREN) 75 mg EC tablet take 2 Tablet (150MG) by oral route every day (Patientnot taking: Reported on 02/22/2017 ) 0 Not Taking ??? doxepin (SINEquan) 25 mg capsule TAKE 1 CAPSULE TWICE A DAY Taking ??? ferrous fumarate 325 mg (106 mg iron) tablet Take 2 tablets by mouth daily. Taking ??? furosemide (LASIX) 20 mg tablet take 1 tablet by oral route every day (Patient not taking: Reported on 02/22/2017 ) 0 0 Not Taking ??? metFORMIN (GLUCOPHAGE) 500 mg tablet Take 500 mg by mouth 2 (two) times a day with meals. Taking ??? pantoprazole DR (PROTONIX) 40 mg EC tablet take 1 tablet by oral route every day 0 0 Taking ??? potassium chloride ER (potassium chloride ER) 10 mEq CR tablet TAKE ONE TABLET BY MOUTH ONCE DAILY WITH FOOD (Patient not taking: Reported on 02/22/2017 ) 30 0 Not Taking Inpatient Meds: Current Facility-Administered Medications: ??? acetaminophen (TYLENOL) tablet 650 mg, 650 mg, oral, Q4H PRN, Rachna Burt MD, 650 mg at 10/26/17 1051 ??? albuterol (PROVENTIL,VENTOLIN) 2.5 mg/0.5 mL nebulizer solution 5 mg, 5 mg, nebulization, Q6H PRN, Rachna Burt MD ??? amiodarone (PACERONE) tablet 200 mg, 200 mg, oral, BID, Rachna Burt MD, 200 mg at ??? apixaban (ELIQUIS) tablet 5 mg, 5 mg, oral, BID, Rachna Burt MD, 5 mg at 10/26/172233 ??? ascorbic acid (VITAMIN C) tablet/chewable tablet 500 mg, 500 mg, oral, BID, Rachna Burt MD, 500 mg at 10/26/172224 ??? aspirin enteric coated tablet 81 mg, 81 mg, oral, Daily, Rachna Burt MD, 81 mg at ??? atorvastatin (LIPITOR) tablet 20 mg, 20 mg, oral, Daily, Rachna Burt MD, 20 mg at ??? bisacodyl (DULCOLAX) suppository 10 mg, 10 mg, rectal, Daily PRN, Rachna Burt MD ??? budesonide-formoterol (SYMBICORT) 80-4.5 mcg/actuation inhaler 1 puff, 1 puff, inhalation, BID (RT), Rachna Burt MD, 1 puff at 10/26/17 1848 ??? bumetanide (BUMEX) tablet 0.25 mg, 0.25 mg, oral, Daily, Rachna Burt MD, 0.25 mg at 10/26/17 0801 ??? chlorhexidine (PERIDEX) 0.12 % solution 5 mL, 5 mL, mouth/throat, BID, Rachna Burt MD, 5 mL at 10/26/172235 ??? collagenase 250 unit/gram ointment, , topical, Daily, Rachna Burt MD ??? dextrose (GLUTOSE) 40 % gel 15 g, 15 g, oral, Q15 Min PRN, Jason Shore Jr., OWNER/PHOTOGRAPHER ??? dextrose 50% (concentrated solution) CONCENTRATED solution 25 g, 25 g, intravenous, Q15 Min PRN, Jason Shore Jr., OWNER/PHOTOGRAPHER ??? diphenhydrAMINE (BENADRYL) tab/cap 25 mg, 25 mg, oral, TID PRN, Rachna Burt MD ??? docusate sodium (COLACE) capsule 100 mg, 100 mg, oral, BID, Rachna Burt MD, 100 mg at 10/26/172223 ??? ergocalciferol (VITAMIN D) capsule 50,000 Units, 50,000 Units, oral, Weekly, Adam Pastor MD, 50,000 Units at 10/26/17 0802 ??? glucagon injection 1 mg, 1 mg, intramuscular, Q30 Min PRN, Jason Shore Jr., OWNER/PHOTOGRAPHER ??? insulin lispro (HumaLOG) injection 1-2 Units, 1-2 Units, subcutaneous, Nightly, Jason Lilly, OWNER/PHOTOGRAPHER ??? insulin lispro (HumaLOG) injection 1-3 Units, 1-3 Units, subcutaneous, TID with meals, Jason Shore Jr., OWNER/PHOTOGRAPHER ??? ipratropium-albuterol (DUO-NEB) 0.5-2.5 mg/3 mL nebulizer solution 3 mL, 3 mL, nebulization, QID (RT), Александр Espino Jr., MD, 3 mL at 10/26/17 1847 ??? metoprolol (LOPRESSOR) tablet 12.5 mg, 12.5 mg, oral, BID, Rachna Burt MD, 12.5 mg at 10/26/172225 ??? miconazole 2 % powder, , topical, BID, Rachna Burt MD ??? ondansetron (ZOFRAN) tablet 4 mg, 4 mg, oral, Q4H PRN, Rachna Burt MD ??? oxyCODONE (ROXICODONE) tablet 10 mg, 10 mg, oral, Q4H PRN, Rachna Burt MD ??? oxyCODONE (ROXICODONE) tablet 5 mg, 5 mg, oral, Q4H PRN, Rachna Burt MD ??? pantoprazole DR (PROTONIX) extended release tablet 40 mg, 40 mg, oral, Daily, Rachna Burt MD, 40 mg at 10/26/17 08 ??? polyethylene glycol (MIRALAX) packet 17 g, 17 g, oral, Daily PRN, Rachna Burt MD ??? senna (SENOKOT) tablet 1 tablet, 1 tablet, oral, Daily, Rachna Burt MD, 1 tablet at 10/26/17 08 ??? sulfamethoxazole-trimethoprim (BACTRIM,SEPTRA) 800-160 mg per tablet 1 tablet, 1 tablet, oral, BID, Rachna Burt MD, 1 tablet at 10/26/172224 ??? tamsulosin (FLOMAX) extended release capsule 0.4 mg, 0.4 mg, oral, Nightly, Rachna Burt MD, 0.4 mg at 10/26/172233 ??? zinc sulfate (ZINCATE) capsule 220 mg, 220 mg, oral, Daily, Rachna Burt MD, 220 mg at 10/26/17801 ??? zolpidem (AMBIEN) tablet 5 mg, 5 mg, oral, Nightly PRN, Rachna Burt MD, 5 mg at 10/26/172224 SocHx: Social History Substance Use Topics ??? Smoking status: Former Smoker ??? Smokeless tobacco: Never Used ??? Alcohol use No FamHx: History reviewed. No pertinent family history. Review of Systems History from patient and medical records General positive for - fatigue ENT positive for - dysphagia CV positive for - chest pain, dyspnea on exertion, edema, irregular heartbeat and shortness of breath Respiratory positive for - pleuritic pain and shortness of breath GI positive for - change in bowel habits positive for - change in urinary stream MS positive for - gait disturbance, joint pain, joint stiffness and muscular weakness Neuro positive for - weakness All Other ROS Negative BP 140/86 (BP Location: Right arm, Patient Position: Lying) Pulse 103 Temp 36.7 ??C (98 ??F) (Oral) Resp 20 Ht 180.3 cm (5' 11 ) Wt 94.3 kg (208 lb) SpO2 100% BMI 29.01 kg/m?? Intake/Output Summary (Last 24 hours) at 10/27/17 0659 Last data filed at 10/27/17 0658 Gross per 24 hour Intake 580 ml Output 700 ml Net -120 ml Wt Readings from Last 3 Encounters: 10/24/17 94.3 kg (208 lb) 10/24/17 88.9 kg (196 lb) 02/22/17 116.1 kg (256 lb) General appearance Alert, no distress Head Normocephalic, without obvious abnormality, atraumatic Throat Oropharynx clear Neck Supple. Trach stoma healing Lungs Clear to auscultation bilaterally, diminished bases Chest wall +tenderness Heart Regular rate and rhythm Abdomen Soft, non-tender. Bowel sounds normal. G tube Extremities + edema Neurologic Diffusely weak CBC: Recent Labs Lab Units 10/26/17 0403 10/25/17 0540 10/24/17 1100 WHITE BLOOD CELLS K/cumm 9.2 8.0 12.1* HEMOGLOBIN g/dL 9.5* 9.1* 9.4* HEMATOCRIT % 31.1* 30.3* 31.2* PLATELETS K/cumm 152 155 199 BMP: Recent Labs Lab Units 10/27/17 0618 10/27/17 0357 10/26/17 2233 10/26/17 0403 10/25/17 0540 SODIUM mmol/L -- 132* -- -- 136 -- 139 POTASSIUM PLASMA mmol/L -- 4.3 -- -- 4.6 -- 4.7 CHLORIDE mmol/L -- 96* -- -- 99 -- 99 CO2 mmol/L -- 26 -- -- 26 -- 30 ANIONGAP mmol/L -- 10 -- -- 11 -- 10 GLUCOSE mg/dL -- 87 -- -- 89 -- 82 POC GLUCOSE MONITOR mg/dL 90 -- 121 < > -- < > -- BUN SERUM mg/dL -- 17 -- -- 20 -- 24 CREATININE mg/dL -- 0.89 -- -- 0.88 -- 0.90 CALCIUM mg/dL -- 8.8 -- -- 9.0 -- 8.5 ALBUMIN g/dL -- 2.9* -- -- 3.1* -- 3.0* ALK PHOS Units/L -- 111 -- -- 114 -- 123 ALT Units/L -- 59* -- -- 65* -- 72* AST Units/L -- 31 -- -- 29 -- 30 BILIRUBIN TOTAL mg/dL -- 0.5 -- -- 0.5 -- 0.5 < > = values in this interval not displayed. EKG: No results found for this or any previous visit. RADIOLOGY: No results found. 1. Debility: Complicated recent medical course. Comprehensive rehab program. 2. L1 abscess s/p debridement with MRSA empyema: Pain control. F/u with surgery team. Complete course of bactrim. Chest tube out 3. Respiratory failure: S/p trach, decannulated. Aggressive pulm toilet. BDs/inhaled steroids. Dr Espino following. NIPPV as required. H/o COPD and prior tobacco abuse. 4. Dysphagia: S/p PEG. TOWING PILOT, RD f/u. Aspiration precautions 5. Dm2: A1c 4.7%. Metformin held. SSI, accuchecks. RD eval. 6. CAD: ASA, statin, BBlocker 7. HTN: Metoprolol, bumex 8. Afib: Eliquis, amio, metoprolol 9. Urinary retention: Flomax, monitor UOP 10. Dyslipid; Statin 11. Anemia: ACD and ABLA. Monitor cbc, transfuse for hgb under 7 or if symptomatic. Thank you for involving me in this patient's care. I will continue to follow along with you. ?? DVT Prophylaxis: Eliquis ?? GI prophylaxis: PPI ?? Code Status Full Code 35 min were spent in the care of this patient today; this may have included family conferences, nursing conferences and discussion with any consultants Adam Pastor M.D. * Rachna Burt MD - 10/26/2017 10:24 AM CDT [facility] Progress Note NAME: José Miguel Jang AGE: 66 y.o. : 1950 Date of Note: 10/26/2017 REHABILITATION PROGRESS NOTE Physician Physical Assessment/ Progress Note Rehab Impairment Code: Impairment Code Group: Debility Date of onset: Date of Onset: 07/29/17 Date of admission: 10/24/2017 Subjective: Slept some. Seen with therapy this morning in stand aid working on weight bearing. Motivated. Back incision c/d/i. Wound care following. Continent of bowel and bladder.Tolerates BIPBP Trach stoma closing. On bactrim for stenotrophomonas maltophilia pna. Pulmonology following. On eliquis. No fever ch ills, chest pain , or acute sob. PHYSICAL EXAMINATION: Vitals: 10/25/17 2200 10/26/17 0540 10/26/17 0803 10/26/17 0806 BP: 117/69 115/59 BP Location: Right arm Patient Position: Lying Pulse: 95 88 98 Resp: 25 Temp: 36.8 ??C (98.2 ??F) TempSrc: Oral SpO2: 100% 96% Weight: Height: Physical exam:?? GENERAL: Pleasant and in no acute distress MENTAL STATUS: ??Awake, alert and oriented to person, place and time with normal attention span, insight, and concentration. ??Naming and repetition are normal. ??Remote and recent memory intact. ??Fund of knowledge is appropriate. SPEECH: ??Fluent, non-dysarthric, no aphasia noted CRANIAL NERVES: Visual herrera are full on confrontation. ??Pupils are equally round and reactive tolight??bilaterally. Extraocular movements are??full and intact. No nystagmus is noted. ??There is no loss of sensation over the face. ??There is no facial weakness or asymmetry. ??Hearing intact bilaterally to finger rubbing. Uvula and palate elevate in the midline. Shoulder shrug is symmetric. ??Tongue protrudes in the midline. MOTOR: Generalized weakness. Moves all extremities. BL LE: hip flexors 3/5, knee extension and flexion 4/5, BL DF 3/5 Bulk and tone are nomal. ??No abnormal movements are noted. REFLEXES: 1+ and symmetric in bilateral upper extremities. SENSORY: Intact to light??touch in all four extremities.?No extinction with bilateral stimulation. COORDINATION: ??Normal GAIT AND STATION: Not tested, per therapy notes CARDIOVASCULAR: Regular rate and rhythm. ??No murmurs, rubs, gallops or carotid bruits. LUNGS: Clear to auscultation bilaterally. No wheezes, rhonchi or rales. ABDOMEN: ??Soft and non-tender.?Normal bowel sounds were noted. EXTREMITIES: ??No edema, back incision dehisced IMPRESSION: Rehab Diagnosis: Respiratory Failure Impairment Code Group: Debility Physician Problem List/ Comorbidities: Active Problems: Chronic atrial fibrillation ([facility]) Former smoker COPD (chronic obstructive pulmonary disease) ([facility]) Hypercapnic respiratory failure ([facility]) Diskitis Pneumonia MEDICAL PLAN: 1. Debility: ??Complicated recent medical course. ??Comprehensive inpatient rehabilitation, family training, structured environment. 2. 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 ??F/u with surgery team. ??Complete course of bactrim. ??Chest tube out. Wound care following back incision. 3. Respiratory failure: ??S/p trach, decannulated. ??Aggressive pulm toilet. ??BDs/inhaled steroids. ??Dr Espino following. NIPPV as required. ??H/o COPD and prior tobacco abuse. 4. Dysphagia: ??S/p PEG. ??TOWING PILOT, RD f/u. ??Aspiration precautions 5. Dm2: ??A1c 4.7%: prudent diet, diabetic education. ??Metformin, SSI, accuchecks. ??RD eval. 6. CAD: ??ASA, statin, BBlocker 7. HTN: ??Metoprolol, bumex 8. Afib: ??Eliquis, amio, metoprolol 9. Urinary retention: ??Flomax, monitor UOP 10. Dyslipid; ??Statin 11. Anemia: ??ACD and ABLA. ??Monitor cbc, transfuse for hgb under 7 or if symptomatic. 12. Nutrition: rd consult. ?? * DVT prophylaxsis: eliquis * GI prophylaxsis: ppi CODE STATUS: Full Code ALLERGY: Allergies Allergen Reactions ??? Penicillins Current Facility-Administered Medications: ??? acetaminophen (TYLENOL) tablet 650 mg, 650 mg, oral, Q4H PRN, Rachna Burt MD, 650 mg at 10/25/172248 ??? albuterol (PROVENTIL,VENTOLIN) 2.5 mg/0.5 mL nebulizer solution 5 mg, 5 mg, nebulization, Q6H PRN, Rachna Burt MD ??? amiodarone (PACERONE) tablet 200 mg, 200 mg, oral, BID, Rachna Burt MD, 200 mg at ??? apixaban (ELIQUIS) tablet 5 mg, 5 mg, oral, BID, Rachna Burt MD, 5 mg at 10/26/17801 ??? ascorbic acid (VITAMIN C) tablet/chewable tablet 500 mg, 500 mg, oral, BID, Rachna Burt MD, 500 mg at 10/26/17801 ??? aspirin enteric coated tablet 81 mg, 81 mg, oral, Daily, Rachna Burt MD, 81 mg at ??? atorvastatin (LIPITOR) tablet 20 mg, 20 mg, oral, Daily, Rachna Burt MD, 20 mg at ??? bisacodyl (DULCOLAX) suppository 10 mg, 10 mg, rectal, Daily PRN, Rachna Burt MD ??? budesonide-formoterol (SYMBICORT) 80-4.5 mcg/actuation inhaler 1 puff, 1 puff, inhalation, BID (RT), Rachna Burt MD, 1 puff at 10/26/17 08 ??? bumetanide (BUMEX) tablet 0.25 mg, 0.25 mg, oral, Daily, Rachna Burt MD, 0.25 mg at 10/26/17 08 ??? chlorhexidine (PERIDEX) 0.12 % solution 5 mL, 5 mL, mouth/throat, BID, Rachna Burt MD, 5 mL at 10/26/17 0812 ??? collagenase 250 unit/gram ointment, , topical, Daily, Rachna Burt MD ??? dextrose (GLUTOSE) 40 % gel 15 g, 15 g, oral, Q15 Min PRN, Jason Shore Jr., OWNER/PHOTOGRAPHER ??? dextrose 50% (concentrated solution) CONCENTRATED solution 25 g, 25 g, intravenous, Q15 Min PRN, Jason Shore Jr., OWNER/PHOTOGRAPHER ??? diphenhydrAMINE (BENADRYL) tab/cap 25 mg, 25 mg, oral, TID PRN, Rachna Burt MD ??? docusate sodium (COLACE) capsule 100 mg, 100 mg, oral, BID, Rachna Burt MD, 100 mg at 10/26/17801 ??? ergocalciferol (VITAMIN D) capsule 50,000 Units, 50,000 Units, oral, Weekly, Adam Pastor MD, 50,000 Units at 10/26/17801 ??? glucagon injection 1 mg, 1 mg, intramuscular, Q30 Min PRN, Jason Shore Jr., OWNER/PHOTOGRAPHER ??? insulin lispro (HumaLOG) injection 1-2 Units, 1-2 Units, subcutaneous, Nightly, Jason Lilly, OWNER/PHOTOGRAPHER ??? insulin lispro (HumaLOG) injection 1-3 Units, 1-3 Units, subcutaneous, TID with meals, Jason Shore Jr., OWNER/PHOTOGRAPHER ??? ipratropium-albuterol (DUO-NEB) 0.5-2.5 mg/3 mL nebulizer solution 3 mL, 3 mL, nebulization, QID (RT), Александр Espino Jr., MD, 3 mL at 10/25/172043 ??? metoprolol (LOPRESSOR) tablet 12.5 mg, 12.5 mg, oral, BID, Rachna Burt MD, 12.5 mg at 10/26/17801 ??? miconazole 2 % powder, , topical, BID, Rachna Burt MD ??? ondansetron (ZOFRAN) tablet 4 mg, 4 mg, oral, Q4H PRN, Rachna Burt MD ??? oxyCODONE (ROXICODONE) tablet 10 mg, 10 mg, oral, Q4H PRN, Rachna Burt MD ??? oxyCODONE (ROXICODONE) tablet 5 mg, 5 mg, oral, Q4H PRN, Rachna Burt MD ??? pantoprazole DR (PROTONIX) extended release tablet 40 mg, 40 mg, oral, Daily, Rachna Burt MD, 40 mg at 10/26/17801 ??? polyethylene glycol (MIRALAX) packet 17 g, 17 g, oral, Daily PRN, Rachna Burt MD ??? senna (SENOKOT) tablet 1 tablet, 1 tablet, oral, Daily, Rachna Burt MD, 1 tablet at 10/26/17801 ??? sulfamethoxazole-trimethoprim (BACTRIM,SEPTRA) 800-160 mg per tablet 1 tablet, 1 tablet, oral, BID, Rachna Burt MD, 1 tablet at 10/26/17801 ??? tamsulosin (FLOMAX) extended release capsule 0.4 mg, 0.4 mg, oral, Nightly, Rachna uBrt MD, 0.4 mg at 10/25/172157 ??? zinc sulfate (ZINCATE) capsule 220 mg, 220 mg, oral, Daily, Rachna Burt MD, 220 mg at 10/26/17801 ??? zolpidem (AMBIEN) tablet 5 mg, 5 mg, oral, Nightly PRN, Rachna Burt MD, 5 mg at 10/25/172158 Current functional status: PT Functional Mobility: WC-->mat via slide board with max assist x1, seated hamstring stretches x3 SARAH LE, further assessment of objective measures, seated dynamic balance activities including resisted isometrics, reaching w/ SARAH UEs, and lowering down on propped elbow and pushing back up to midline SARAH UEs x3 reps, transfers mat-->WC with max assist x1 via slide board downhill. Both slide board transfers performed to pt's right (stronger) side. Pt tolerated hamstring stretches w/ mild discomfort. Pt cannot significantly assist with slide board transfers, needing max-total assist at this time, unable to advance legs or unweight his bottom to scoot, despite functional UE strength. Pt demonstrates decreased dynamic sitting balance with reaching and resisted isometrics activities, and becomes fatigued and SOB easily with exertion in seated position, needing rest breaks. Pt's Francia present for PM session. Pt and educated on current functional mobility and expected plan of care for future sessions. Continue per plan of care. OT Functional Mobility: Pt. completes supine to sit max assist and 2 person DEP for sit to stand with manual stand aid OT Self Care: DEP to minimal assist for self care with 1 to 2 people. Pt using rolling shower chairwith sarah supports and manual stand aid 2 person with LE dressing. Pt demonstrates general decreasedbalance, endurance, strength and sensation. Pt will benefit from continued skilled OT to promote IND toward goals. OT Cognition: Appears WNL OT Communication: decreased vocal strength at times. TOWING PILOT Cognition: WFL TOWING PILOT Communication: WFL TOWING PILOT Swallowing: Mild: Mechanical soft consistency with thin liquids Patient/caregiver goals:Patient and Family Goals: to return home with assistance Pre hospital Living environment: Home Setting: Split level home Prehospital Lives With: Spouse;Adult children REVIEW OF DATA: Recent Results (from the past 24 hour(s)) Glucose POC Collection Time: 10/25/17 12:04 PM Result Value Ref Range Glucose, POC, bld 88 70 - 140 mg/dL Glucose POC Collection Time: 10/25/17 4:25 PM Result Value Ref Range Glucose, POC, bld 95 70 - 140 mg/dL Glucose POC Collection Time: 10/25/17 10:00 PM Result Value Ref Range Glucose, POC, bld 137 70 - 140 mg/dL Comprehensive metabolic panel Collection Time: 10/26/17 4:03 AM Result Value Ref Range Sodium 136 135 - 145 mmol/L Potassium 4.6 3.3 - 4.9 mmol/L CO2 26 22 - 32 mmol/L BUN 20 8 - 25 mg/dL Glucose 89 70 - 199 mg/dL Creatinine 0.88 0.80 - 1.30 mg/dL Calcium 9.0 8.5 - 10.3 mg/dL Chloride 99 97 - 110 mmol/L Albumin 3.1 (L) 3.5 - 5.0 g/dL AST 29 10 - 50 Units/L ALT 65 (H) 7 - 55 Units/L Alk phos 114 40 - 130 Units/L Bilirubin 0.5 0.1 - 1.2 mg/dL Protein, pl 5.4 (L) 6.5 - 8.5 g/dL Anion Gap 11 2 - 15 mmol/L CBC with auto differential Collection Time: 10/26/17 4:03 AM Result Value Ref Range WBC 9.2 3.8 - 9.9 K/cumm RBC 3.28 (L) 4.30 - 5.80 M/cumm Hgb 9.5 (L) 13.0 - 17.5 g/dL Hct 31.1 (L) 38.9 - 50.3 % MCV 94.8 81.3 - 96.4 fL MCH 29.0 27.1 - 33.3 pg MCHC 30.5 (L) 32.3 - 35.7 g/dL RDW CV 18.1 (H) 11.1 - 14.9 % RDW SD 63.0 (H) 35.7 - 48.1 fL Plt 152 150 - 400 K/cumm MPV 12.3 9.1 - 12.3 fL NRBC Abs 0.00 0.00 - 0.01 K/cumm Magnesium Collection Time: 10/26/17 4:03 AM Result Value Ref Range Magnesium 1.63 1.40 - 2.50 mg/dL Phosphorus Collection Time: 10/26/17 4:03 AM Result Value Ref Range Phosphorus, pl 2.9 2.3 - 4.5 mg/dL Vitamin D 25 hydroxy Collection Time: 10/26/17 4:03 AM Result Value Ref Range Vitamin D, 25-hydroxy 18 (L) 30 - 80 ng/mL Differential, auto Collection Time: 10/26/17 4:03 AM Result Value Ref Range Neutrophil absolute 7.7 (H) 1.7 - 6.5 K/cumm Immature granulocyte absolute 0.1 0.0 - 0.1 K/cumm Lymphocytes absolute 0.6 (L) 0.8 - 3.3 K/cumm Monocyte absolute 0.8 0.2 - 0.8 K/cumm Eosinophils absolute 0.1 0.0 - 0.5 K/cumm Basophils, abs 0.0 0.0 - 0.1 K/cumm Neutrophils 83.1 % Immature granulocytes 1.1 % Lymphocytes 6.2 % Monocytes 8.6 % Eosinophils 1.0 % Basophils 0.0 % eGFR Collection Time: 10/26/17 4:03 AM Result Value Ref Range GFR 88 mL/min/1.73 m2 Glucose POC Collection Time: 10/26/17 6:21 AM Result Value Ref Range Glucose, POC, bld 97 70 - 140 mg/dL REVIEW OF IMAGING: Imaging (Last 96 hours) 10/22 1037 XR Chest 1 Vw REHABILITATION DIAGNOSIS: Impairment Code Group: Debility REHAB PLAN OF CARE: The Interdisciplinary Team will work collaboratively to address the patient problems and goals to be managed by the Individualized Interdisciplinary Plan of Care. Rehabilitation Precautions/Restrictions: Falls;MRSA colonization;Isolation Multi-Disciplinary Problems Active Problems Problem: Health Behavior: Start Date: 10/24/17 Goal Start Date End Date Understanding of discharge needs will improve 10/24/17 -- Goal Intervention Frequency Start Date End Date Discuss information regarding discharge instructions -- 10/24/17 -- Goal Intervention Frequency Start Date End Date Identify discharge learning needs (meds, wound care, etc) -- 10/24/17 -- Goal Intervention Frequency Start Date End Date Collaborate with case management -- 10/24/17 -- Intervention Details: (Coordinate discharge planning if the patient needs post- hospital services onphysician order or complex needs related to functional status, cognitive ability, or social supportsystem) Goal Intervention Frequency Start Date End Date Arrange for needed discharge resources and transportation as appropriate -- 10/24/17 -- Goal Intervention Frequency Start Date End Date Identify discharge barriers -- 10/24/17 -- Goal Intervention Frequency Start Date End Date Collaborate with spanish interpreter -- 10/24/17 -- Problem: Lack of Knowledge: Start Date: 10/25/17 Goal Start Date End Date Ability to state ways to decrease the risk of falls will improve 10/25/17 -- Goal Intervention Frequency Start Date End Date Teach fall prevention measures -- 10/25/17 -- Goal Intervention Frequency Start Date End Date Teach information regarding appropriate environmental changes -- 10/25/17 -- Problem: Safety: Start Date: 10/25/17 Goal Start Date End Date Will remain free from falls 10/25/17 -- Goal Intervention Frequency Start Date End Date Assess risk factors for falls -- 10/25/17 -- Intervention Details: (including medications) Goal Intervention Frequency Start Date End Date Implement fall prevention measures -- 10/25/17 -- Goal Intervention Frequency Start Date End Date Collaborate with other disciplines -- 10/25/17 -- Intervention Details: (PT, OT, Pharmacy, MD, etc.) Goal Start Date End Date Will remain free from injury from falls 10/25/17 -- Goal Intervention Frequency Start Date End Date Provide safe environment for conduction of activities of daily living -- 10/25/17 -- Goal Start Date End Date Will remain free from falls and injury in home environment 10/25/17 -- Goal Intervention Frequency Start Date End Date Assess environmental risk factors -- 10/25/17 -- Problem: Activity: Start Date: 10/25/17 Goal Start Date End Date Mobility will improve 10/25/17 -- Goal Intervention Frequency Start Date End Date Encourage mobilization to extent of ability -- 10/25/17 -- Goal Intervention Frequency Start Date End Date Perform repositioning -- 10/25/17 -- Goal Intervention Frequency Start Date End Date Collaborate with physical therapy -- 10/25/17 -- Problem: Lack of Knowledge: Start Date: 10/25/17 Goal Start Date End Date Understanding of ways to prevent future skin breakdown will improve 10/25/17 -- Goal Intervention Frequency Start Date End Date Discuss precautions to protect skin integrity -- 10/25/17 -- Goal Intervention Frequency Start Date End Date Discuss treatment plan for related conditions -- 10/25/17 -- Goal Start Date End Date Ability to identify appropriate dietary choices will improve 10/25/17 -- Goal Intervention Frequency Start Date End Date Discuss dietary adjustments -- 10/25/17 -- Problem: Nutritional: Start Date: 10/25/17 Goal Start Date End Date Dietary intake will improve 10/25/17 -- Goal Intervention Frequency Start Date End Date Assess nutritional status -- 10/25/17 -- Goal Intervention Frequency Start Date End Date Collaborate with dietitian -- 10/25/17 -- Goal Intervention Frequency Start Date End Date Assist appropriate dietary choices -- 10/25/17 -- Goal Start Date End Date Ability to maintain a balanced intake and output will improve 10/25/17 -- Goal Intervention Frequency Start Date End Date Assess intake and output -- 10/25/17 -- Problem: Skin Integrity: Start Date: 10/25/17 Goal Start Date End Date Risk for impaired skin integrity will decrease 10/25/17 -- Goal Intervention Frequency Start Date End Date Identify risk factors for impaired skin integrity and/or pressure injuries -- 10/25/17 -- Goal Intervention Frequency Start Date End Date Monitor medication effects -- 10/25/17 -- Goal Intervention Frequency Start Date End Date Implement precautions to protect skin integrity -- 10/25/17 -- Goal Intervention Frequency Start Date End Date Use moisturizing agent to dry skin -- 10/25/17 -- Goal Intervention Frequency Start Date End Date Perform cleansing of skin when soiled -- 10/25/17 -- Goal Intervention Frequency Start Date End Date Provide pressure-relief bed or mattress -- 10/25/17 -- Goal Start Date End Date Ability to demonstrate warm and dry skin will improve 10/25/17 -- Goal Intervention Frequency Start Date End Date Monitor skin integrity, appearance and/or temperature -- 10/25/17 -- Goal Start Date End Date Circulation will improve to fullest extent possible 10/25/17 -- Goal Intervention Frequency Start Date End Date Assess circulation, sensation and/or motion of extremity -- 10/25/17 -- Problem: Bladder/Voiding Start Date: 10/25/17 Goal Start Date End Date LTG - Patient will achieve acceptable level of continence 10/25/17 -- Goal Start Date End Date STG - Patient demonstrates no accidents 10/25/17 -- Goal Intervention Frequency Start Date End Date Encourage toileting PRN 10/25/17 -- Goal Intervention Frequency Start Date End Date Educate patient about medications PRN 10/25/17 -- Problem: Bowel Elimination Start Date: 10/25/17 Goal Start Date End Date LTG - Patient will have regular and routine bowel evacuation 10/25/17 -- Goal Start Date End Date LTG - Patient will complete bowel elimination 10/25/17 -- Goal Start Date End Date STG - Patient maintains skin integrity 10/25/17 -- Goal Intervention Frequency Start Date End Date Educate patient about ostomy appliances, correct application, protection of skin PRN 10/25/17 -- Goal Start Date End Date STG - Patient will verbalize signs and symptoms of constipation and how to prevent/alleviate 10/25/17 -- Goal Intervention Frequency Start Date End Date Encourage use of aids (stool softener, laxative, suppository) PRN 10/25/17 -- Goal Intervention Frequency Start Date End Date Encourage adjustment and monitoring of fluid intake PRN 10/25/17 -- Goal Intervention Frequency Start Date End Date Teach patient about symptoms of impaction PRN 10/25/17 -- Goal Intervention Frequency Start Date End Date Educate patient about effect of fluid intake on bowel movement PRN 10/25/17 -- Goal Intervention Frequency Start Date End Date Educate patient about adequate fluid intake PRN 10/25/17 -- Goal Start Date End Date STG - Patient will be continent of stool 10/25/17 -- Goal Start Date End Date STG - Patient verbalizes knowledge about relationship between diet, fluid intake, activity and medication on constipation 10/25/17 -- Goal Intervention Frequency Start Date End Date Educate patient about medications PRN 10/25/17 -- Goal Intervention Frequency Start Date End Date Educate patient about adequate fluid intake PRN 10/25/17 -- Problem: Breathing Start Date: 10/25/17 Goal Start Date End Date STG - Respiratory rate and effort will be within normal limits for the patient 10/25/17 -- Goal Intervention Frequency Start Date End Date Provide oxygen therapy as ordered PRN 10/25/17 -- Goal Intervention Frequency Start Date End Date Monitor oygen saturation PRN 10/25/17 -- Goal Intervention Frequency Start Date End Date Encourage incentive spirometer x 10 each hour while awake PRN 10/25/17 -- Goal Intervention Frequency Start Date End Date Encourage/perform oral hygiene as appropriate PRN 10/25/17 -- Goal Intervention Frequency Start Date End Date Collaborate with respiratory therapy to administer medications/treatments PRN 10/25/17 -- Goal Start Date End Date STG - Patient/family will be able to verbalize oxygen safety precautions 10/25/17 -- Goal Intervention Frequency Start Date End Date Educate patient about oxygen PRN 10/25/17 -- Goal Start Date End Date STG - Patient will utilize incentive spirometer 10/25/17 -- Goal Intervention Frequency Start Date End Date Encourage incentive spirometer x 10 each hour while awake PRN 10/25/17 -- Goal Intervention Frequency Start Date End Date Encourage use of incentive spirometer PRN 10/25/17 -- Goal Start Date End Date STG - Patient performs or directs assisted coughing 10/25/17 -- Goal Intervention Frequency Start Date End Date Instruct on coughing and deep breathing PRN 10/25/17 -- Goal Intervention Frequency Start Date End Date Educate patient about forced cough PRN 10/25/17 -- Goal Intervention Frequency Start Date End Date Teach patient about assistive cough PRN 10/25/17 -- Problem: Pain Start Date: 10/25/17 Goal Start Date End Date STG - Pain is manageable through therapies 10/25/17 -- Goal Start Date End Date STG - Patient will verbalize an acceptable level of pain 10/25/17 -- Problem: OT [facility] [place] Start Date: 10/25/17 Goal Start Date End Date [facility] [place] 1 10/25/17 -- Goal Details: Pt to dress modified IND Goal Start Date End Date [facility] [place] 2 10/25/17 -- Goal Details: Pt to groom modified IND Goal Start Date End Date [facility] [place] 3 10/25/17 -- Goal Details: Pt to bathe with transfer modified IND Goal Start Date End Date [facility] [place] 4 10/25/17 -- Goal Details: Pt to toilet with transfer modified IND Goal Start Date End Date [facility] [place] 5 10/25/17 -- Goal Details: Pt to complete UE HEP with IND to promote IND with self care and functional transfers Problem: TOWING PILOT [facility] [place] Start Date: 10/25/17 Goal Start Date End Date [facility] [place] 1 10/25/17 -- Goal Details: Patient will tolerate regular consistency with thin liquids without clinical overt s/s of aspiration. Goal Start Date End Date [facility] [place] 2 10/25/17 -- Goal Details: Patient will complete 3 sets of 10 pharyngeal strengthening exercises Problem: Cognitive: Start Date: 10/25/17 Goal Start Date End Date [facility] 1 10/25/17 -- Goal Details: Patient will execute multiple elements of a task with supervision Goal Start Date End Date [facility] 2 10/25/17 -- Goal Details: Patient will increase problem solving to complete tasks at 90% or with supervision Problem: Physical Regulation: Start Date: 10/25/17 Goal Start Date End Date [facility] 3 10/25/17 -- Goal Details: Patient will increase general strength/coordination through various exercises with supervision until disch Problem: Respiratory: Start Date: 10/25/17 Goal Start Date End Date [facility] 4 10/25/17 -- Goal Details: Patient will maintain/increase SPO2 by 1% in at least one session prior to disch Goal Start Date End Date [facility] 5 10/25/17 -- Goal Details: Patient will increase pulmonary function through various exercises with supervision until disch Problem: PT [facility] [place] Start Date: 10/25/17 Goal Start Date End Date [facility] [place] 1 10/25/17 -- Goal Details: Pt will roll SARAH and supine<-->sit EOB with supervision and bedrails as needed.Pt will sit<-->stand with minimum assist and appropriate assistive device. Pt will transfer bed<-->wheelchair/chair with minimum assist and appropriate assistive device. Goal Start Date End Date [facility] [place] 2 10/25/17 -- Goal Details: Pt will ambulate 150' w/ minimum assist and appropriate assistive device. Pt will ambulate up/down 4 stairs with mod assist and SARAH rails. Goal Start Date End Date [facility] [place] 3 10/25/17 -- Goal Details: Pt will propel WC 150' with supervision and extra time. Goal Start Date End Date [facility] [place] 4 10/25/17 -- Goal Details: Pt will complete SARAH LE HEP x15 reps with supervision. Goal Start Date End Date [facility] [place] 5 10/25/17 -- Goal Details: Pt and/or family will verbalize and demonstrate understanding of pt's safety and mobility needs upon discharge. * Александр Espino Jr., MD - 10/26/2017 8:17 AM CDT Pulmonary / Critical Care Daily Progress Chief Complaint/HPI/Hospital Course: Up in chair. Good night. Tolerating BiPAP. Physical therapy. Able to stand. Only a few steps Review of Systems: Review of Systems Constitutional: Negative for chills, fatigue and fever. HENT: Negative for congestion, sore throat and trouble swallowing. Respiratory: Positive for shortness of breath. Negative for cough, chest tightness and wheezing. Cardiovascular: Negative for chest pain and leg swelling. Gastrointestinal: Negative for diarrhea, nausea and vomiting. Genitourinary: Negative for dysuria and hematuria. Neurological: Positive for weakness. Negative for dizziness and headaches. Psychiatric/Behavioral: Negative for behavioral problems and sleep disturbance. Temp: [36.6 ??C (97.8 ??F)-36.8 ??C (98.2 ??F)] 36.8 ??C (98.2 ??F) Pulse: [86-102] 98 Resp: [18-25] 25 BP: (115-124)/(59-79) 115/59 FiO2 (%): [35 %] 35 % I/O last 2 completed shifts: In: - Out: 650 [Urine:650] I/O this shift: In: 240 [P.O.:240] Out: 100 [Urine:100] Oxygen / Pulmonary Events Vent settings for last 24 hours: FiO2 (%): [35 %] 35 % Oxygen Therapy SpO2: 96 % O2 Therapy: Supplemental oxygen O2 Del Method: Nasal cannula FiO2 (%): 35 % O2 Flow Rate (L/min): 2 L/min] Physical exam: Physical Exam Constitutional: He is oriented to person, place, and time. He appears well- developed. No distress. HENT: Head: Normocephalic. Mouth/Throat: Oropharynx is clear and moist. Eyes: Pupils are equal, round, and reactive to light. Right eye exhibits no discharge. Left eye exhibits no discharge. Cardiovascular: Regular rhythm and normal heart sounds. Tachycardia present. Pulmonary/Chest: Effort normal and breath sounds normal. He has no wheezes. He has no rales. Abdominal: There is no rebound and no guarding. Peg Musculoskeletal: He exhibits no edema. Neurological: He is alert and oriented to person, place, and time. Psychiatric: He has a normal mood and affect. Current Facility-Administered Medications: ??? acetaminophen (TYLENOL) tablet 650 mg, 650 mg, oral, Q4H PRN, Rachna Burt MD, 650 mg at 10/25/17 2249 ??? albuterol (PROVENTIL,VENTOLIN) 2.5 mg/0.5 mL nebulizer solution 5 mg, 5 mg, nebulization, Q6H PRN, Rachna Burt MD ??? amiodarone (PACERONE) tablet 200 mg, 200 mg, oral, BID, Rachna Burt MD, 200 mg at 802 ??? apixaban (ELIQUIS) tablet 5 mg, 5 mg, oral, BID, Rachna Burt MD, 5 mg at 10/26/17 0802 ??? ascorbic acid (VITAMIN C) tablet/chewable tablet 500 mg, 500 mg, oral, BID, Rachna Burt MD, 500 mg at 10/26/17801 ??? aspirin enteric coated tablet 81 mg, 81 mg, oral, Daily, Rachna Burt MD, 81 mg at 801 ??? atorvastatin (LIPITOR) tablet 20 mg, 20 mg, oral, Daily, Rachna Burt MD, 20 mg at ??? bisacodyl (DULCOLAX) suppository 10 mg, 10 mg, rectal, Daily PRN, Rachna Burt MD ??? budesonide-formoterol (SYMBICORT) 80-4.5 mcg/actuation inhaler 1 puff, 1 puff, inhalation, BID (RT), Rachna Burt MD, 1 puff at 10/26/17805 ??? bumetanide (BUMEX) tablet 0.25 mg, 0.25 mg, oral, Daily, Rachna Burt MD, 0.25 mg at 10/26/17800 ??? chlorhexidine (PERIDEX) 0.12 % solution 5 mL, 5 mL, mouth/throat, BID, Rachna Burt MD, 5 mL at 10/26/17811 ??? collagenase 250 unit/gram ointment, , topical, Daily, Rachna Burt MD ??? dextrose (GLUTOSE) 40 % gel 15 g, 15 g, oral, Q15 Min PRN, Jason Shore Jr., OWNER/PHOTOGRAPHER ??? dextrose 50% (concentrated solution) CONCENTRATED solution 25 g, 25 g, intravenous, Q15 Min PRN, Jason Shore Jr., OWNER/PHOTOGRAPHER ??? diphenhydrAMINE (BENADRYL) tab/cap 25 mg, 25 mg, oral, TID PRN, Rachna Burt MD ??? docusate sodium (COLACE) capsule 100 mg, 100 mg, oral, BID, Rachna Burt MD, 100 mg at 10/26/17801 ??? ergocalciferol (VITAMIN D) capsule 50,000 Units, 50,000 Units, oral, Weekly, Adam Pastor MD, 50,000 Units at 10/26/17801 ??? glucagon injection 1 mg, 1 mg, intramuscular, Q30 Min PRN, aJson Shore Jr., OWNER/PHOTOGRAPHER ??? insulin lispro (HumaLOG) injection 1-2 Units, 1-2 Units, subcutaneous, Nightly, Jason Lilly, OWNER/PHOTOGRAPHER ??? insulin lispro (HumaLOG) injection 1-3 Units, 1-3 Units, subcutaneous, TID with meals, Jason Shore Jr., OWNER/PHOTOGRAPHER ??? ipratropium-albuterol (DUO-NEB) 0.5-2.5 mg/3 mL nebulizer solution 3 mL, 3 mL, nebulization, QID (RT), Александр Espino Jr., MD, 3 mL at 10/25/172043 ??? metoprolol (LOPRESSOR) tablet 12.5 mg, 12.5 mg, oral, BID, Rachna Burt MD, 12.5 mg at 10/26/17801 ??? miconazole 2 % powder, , topical, BID, Rachna Burt MD ??? ondansetron (ZOFRAN) tablet 4 mg, 4 mg, oral, Q4H PRN, Rachna Burt MD ??? oxyCODONE (ROXICODONE) tablet 10 mg, 10 mg, oral, Q4H PRN, Rachna Burt MD ??? oxyCODONE (ROXICODONE) tablet 5 mg, 5 mg, oral, Q4H PRN, Rachna Burt MD ??? pantoprazole DR (PROTONIX) extended release tablet 40 mg, 40 mg, oral, Daily, Rachna Burt MD, 40 mg at 10/26/17801 ??? polyethylene glycol (MIRALAX) packet 17 g, 17 g, oral, Daily PRN, Rachna Burt MD ??? senna (SENOKOT) tablet 1 tablet, 1 tablet, oral, Daily, Rachna Burt MD, 1 tablet at 10/26/17801 ??? sulfamethoxazole-trimethoprim (BACTRIM,SEPTRA) 800-160 mg per tablet 1 tablet, 1 tablet, oral, BID, Rachna Burt MD, 1 tablet at 10/26/17801 ??? tamsulosin (FLOMAX) extended release capsule 0.4 mg, 0.4 mg, oral, Nightly, Rachna Burt MD, 0.4 mg at 10/25/172157 ??? zinc sulfate (ZINCATE) capsule 220 mg, 220 mg, oral, Daily, Rachna Burt MD, 220 mg at 10/26/17 0802 ??? zolpidem (AMBIEN) tablet 5 mg, 5 mg, oral, Nightly PRN, Rachna Burt MD, 5 mg at 10/25/172158 Labs: Labs reviewed: Hypercapnic, hypoxemic respiratory failure Recent Results (from the past 24 hour(s)) Glucose POC Collection Time: 10/25/17 12:04 PM Result Value Ref Range Glucose, POC, bld 88 70 - 140 mg/dL Glucose POC Collection Time: 10/25/17 4:25 PM Result Value Ref Range Glucose, POC, bld 95 70 - 140 mg/dL Glucose POC Collection Time: 10/25/17 10:00 PM Result Value Ref Range Glucose, POC, bld 137 70 - 140 mg/dL Comprehensive metabolic panel Collection Time: 10/26/17 4:03 AM Result Value Ref Range Sodium 136 135 - 145 mmol/L Potassium 4.6 3.3 - 4.9 mmol/L CO2 26 22 - 32 mmol/L BUN 20 8 - 25 mg/dL Glucose 89 70 - 199 mg/dL Creatinine 0.88 0.80 - 1.30 mg/dL Calcium 9.0 8.5 - 10.3 mg/dL Chloride 99 97 - 110 mmol/L Albumin 3.1 (L) 3.5 - 5.0 g/dL AST 29 10 - 50 Units/L ALT 65 (H) 7 - 55 Units/L Alk phos 114 40 - 130 Units/L Bilirubin 0.5 0.1 - 1.2 mg/dL Protein, pl 5.4 (L) 6.5 - 8.5 g/dL Anion Gap 11 2 - 15 mmol/L CBC with auto differential Collection Time: 10/26/17 4:03 AM Result Value Ref Range WBC 9.2 3.8 - 9.9 K/cumm RBC 3.28 (L) 4.30 - 5.80 M/cumm Hgb 9.5 (L) 13.0 - 17.5 g/dL Hct 31.1 (L) 38.9 - 50.3 % MCV 94.8 81.3 - 96.4 fL MCH 29.0 27.1 - 33.3 pg MCHC 30.5 (L) 32.3 - 35.7 g/dL RDW CV 18.1 (H) 11.1 - 14.9 % RDW SD 63.0 (H) 35.7 - 48.1 fL Plt 152 150 - 400 K/cumm MPV 12.3 9.1 - 12.3 fL NRBC Abs 0.00 0.00 - 0.01 K/cumm Magnesium Collection Time: 10/26/17 4:03 AM Result Value Ref Range Magnesium 1.63 1.40 - 2.50 mg/dL Phosphorus Collection Time: 10/26/17 4:03 AM Result Value Ref Range Phosphorus, pl 2.9 2.3 - 4.5 mg/dL Vitamin D 25 hydroxy Collection Time: 10/26/17 4:03 AM Result Value Ref Range Vitamin D, 25-hydroxy 18 (L) 30 - 80 ng/mL Differential, auto Collection Time: 10/26/17 4:03 AM Result Value Ref Range Neutrophil absolute 7.7 (H) 1.7 - 6.5 K/cumm Immature granulocyte absolute 0.1 0.0 - 0.1 K/cumm Lymphocytes absolute 0.6 (L) 0.8 - 3.3 K/cumm Monocyte absolute 0.8 0.2 - 0.8 K/cumm Eosinophils absolute 0.1 0.0 - 0.5 K/cumm Basophils, abs 0.0 0.0 - 0.1 K/cumm Neutrophils 83.1 % Immature granulocytes 1.1 % Lymphocytes 6.2 % Monocytes 8.6 % Eosinophils 1.0 % Basophils 0.0 % eGFR Collection Time: 10/26/17 4:03 AM Result Value Ref Range GFR 88 mL/min/1.73 m2 Glucose POC Collection Time: 10/26/17 6:21 AM Result Value Ref Range Glucose, POC, bld 97 70 - 140 mg/dL Imaging: No results found. Diagnostics: Ejection fraction 65%. No vegetations. Mild left atrial enlarged Microbiology: Positive sputum culture for stenotrophomonas Assessment & Plan: Assessment/Plan Pneumonia Assessment & Plan Completed treatment for pneumonia, empyema prior to transfer to [facility]. Currently on Bactrim for stenotrophomonas pneumonia. Chest x-ray improved Diskitis Assessment & Plan Completed debridement, prolonged antibiotic therapy for an L1 diskitis. Has had some back pain. Hypercapnic respiratory failure ([facility]) Assessment & Plan Successfully decannulated. FiO2 to maintain a saturation of 90%. Continue BiPAP at night. Eventual evaluation for home noninvasive positive pressure ventilation at night COPD (chronic obstructive pulmonary disease) ([facility]) Assessment & Plan Pulmonary function testing when stable. Continue inhaled bronchodilator therapy. Former smoker Assessment & Plan May meet criteria for lung cancer screen Chronic atrial fibrillation ([facility]) Assessment & Plan Hemodynamically stable. Has had problems with intermittent bleeding from trach site, skin tears andalso hematuria while in [facility]. Continues on apixaban. Monitor for bleeding. Consider urology consultation if hematuria reoccur. Continue amiodarone, aspirin, Lipitor, metoprolol. Prophylaxis: DVT ppx: Long-term oral anticoagulation At Code Status: Full Code. Александр Espino Jr., MD 10/26/2017 8:20 AM This note was transcribed using Speech Recognition software. As a result, there may be grammatical and spelling errors that are unintended. Every attempt is made to have correct dictation. If there are any questions or major errors, please contact me * Adam Pastor MD - 10/26/2017 6:11 AM CDT Internal Medicine Progress Note Adam Pastor M.D. 10/26/2017 Patient Name: José Miguel Jang Admit Date: 10/24/2017 PCP: Briana Medeiros MD Consult requested by Dr Rachna Burt MD Patient Name: José Miguel Jang PCP: Briana Medeiros MD Date of admission: 10/24/2017 Date of Service: 10/26/2017 Reason for Consultation: Medical Management Slept most of the night. Tolerating BiPAP. Continue aggressive pulm toilet. Trach stoma care. On Bactrim for Stenotrophomonas maltophilia pneumonia, Dr Espino following. CXR improving. No fever, chills, chest pain, acute SOB. Diffusely weak. Tolerating eliquis. H/H low, but stable. WBC 9. Supplement vit d. Glc 82-137, hold metformin; A1c 4.7%. SSI prn. Bowel regimen. Vitals acceptable. Watch vol status, bumex as required. PMHx: Past Medical History: Diagnosis Date ??? A-fib (CMS/HCC) ??? A-fib (CMS/HCC) history ??? Chronic obstructive pulmonary disease (CMS/HCC) COPD ??? Coronary artery disease ??? Diabetes mellitus (CMS/HCC) ??? HX OTHER MEDICAL DJD ??? Hypertension PSurgHx: Past Surgical History: Procedure Laterality Date ??? BACK SURGERY ??? TOTAL HIP ARTHROPLASTY Bilateral ??? TRACHEOSTOMY All: Allergies Allergen Reactions ??? Penicillins Outpt Meds: Prescriptions Prior to Admission Medication Sig Dispense Refill Last Dose ??? acetaminophen (TYLENOL) 325 mg tablet Take 650 mg by mouth every 4 (four) hours as needed for pain. ??? albuterol (PROVENTIL,VENTOLIN) 2.5 mg/0.5 mL solution for nebulization Take 5 mg by nebulization every 6 (six) hours as needed. ??? amiodarone (PACERONE) 200 mg tablet Take 200 mg by mouth 2 (two) times a day. ??? apixaban (ELIQUIS) 5 mg tablet Take 5 mg by mouth 2 (two) times a day. ??? aspirin 81 mg chewable tablet Take 81 mg by mouth daily. ??? atorvastatin (LIPITOR) 20 mg tablet Take 20 mg by mouth daily. ??? bisacodyl (DULCOLAX) 10 mg suppository Insert 10 mg into the rectum every third day. ??? bumetanide (BUMEX) 0.5 mg tablet Take 0.25 mg by mouth daily. ??? chlorhexidine (PERIDEX) 0.12 % solution Apply 5 mL to the mouth or throat 2 (two) times a day. ??? diphenhydrAMINE (BENADRYL) 25 mg capsule Take 25 mg by mouth 3 (three) times a day as needed for itching. ??? docusate (COLACE) liquid 50 mg/5 mL Take 100 mg by mouth daily. ??? famotidine (PEPCID) 20 mg tablet Take 20 mg by mouth 2 (two) times a day. ??? insulin lispro (HumaLOG) 100 unit/mL injection Inject 0-10 Units under the skin 4 (four) times a day (with meals and nightly). Low dose sliding scale ??? LORazepam (ATIVAN) 2 mg/mL injection Infuse 1 mg into a venous catheter every 6 (six) hours as needed for anxiety. ??? metoprolol (LOPRESSOR) 25 mg tablet Take 12.5 mg by mouth 2 (two) times a day. ??? ondansetron (ZOFRAN) 4 mg tablet Take 4 mg by mouth every 4 (four) hours as needed for nausea or vomiting. ??? oxyCODONE (ROXICODONE) 5 mg immediate release tablet Take 5 mg by mouth every 4 (four) hours asneeded. ??? oxyCODONE (ROXICODONE) 5 mg immediate release tablet Take 10 mg by mouth every 4 (four) hours as needed (prn pain scale 7-10). ??? polyethylene glycol (MIRALAX) 17 gram packet Take 17 g by mouth daily as needed. ??? senna (SENOKOT) 8.6 mg tablet Take 1 tablet by mouth daily. ??? sulfamethoxazole-trimethoprim (BACTRIM,SEPTRA) 800-160 mg per tablet Take 1 tablet by mouth 2 (two) times a day. ??? tamsulosin (FLOMAX) 0.4 mg extended release capsule Take 0.4 mg by mouth nightly. ??? zolpidem (AMBIEN) 5 mg tablet Take 5 mg by mouth nightly as needed for sleep. ??? aspirin (ASPIRIN LOW DOSE) 81 mg tablet take 1 Tablet (81MG) by oral route every day 0 Taking ??? budesonide-formoterol (SYMBICORT) 80-4.5 mcg/actuation inhaler Inhale 1 puff 2 (two) times a day. Taking ??? cyanocobalamin, vitamin B-12, 500 mcg lozenge Take by mouth. Taking ??? diclofenac DR (VOLTAREN) 75 mg EC tablet take 2 Tablet (150MG) by oral route every day (Patientnot taking: Reported on 02/22/2017 ) 0 Not Taking ??? doxepin (SINEquan) 25 mg capsule TAKE 1 CAPSULE TWICE A DAY Taking ??? ferrous fumarate 325 mg (106 mg iron) tablet Take 2 tablets by mouth daily. Taking ??? furosemide (LASIX) 20 mg tablet take 1 tablet by oral route every day (Patient not taking: Reported on 02/22/2017 ) 0 0 Not Taking ??? metFORMIN (GLUCOPHAGE) 500 mg tablet Take 500 mg by mouth 2 (two) times a day with meals. Taking ??? pantoprazole DR (PROTONIX) 40 mg EC tablet take 1 tablet by oral route every day 0 0 Taking ??? potassium chloride ER (potassium chloride ER) 10 mEq CR tablet TAKE ONE TABLET BY MOUTH ONCE DAILY WITH FOOD (Patient not taking: Reported on 02/22/2017 ) 30 0 Not Taking Inpatient Meds: Current Facility-Administered Medications: ??? acetaminophen (TYLENOL) tablet 650 mg, 650 mg, oral, Q4H PRN, Rachna Burt MD, 650 mg at 10/25/172248 ??? albuterol (PROVENTIL,VENTOLIN) 2.5 mg/0.5 mL nebulizer solution 5 mg, 5 mg, nebulization, Q6H PRN, Rachna Burt MD ??? amiodarone (PACERONE) tablet 200 mg, 200 mg, oral, BID, Rachna Burt MD, 200 mg at ??? apixaban (ELIQUIS) tablet 5 mg, 5 mg, oral, BID, Rachna Burt MD, 5 mg at 10/25/172157 ??? ascorbic acid (VITAMIN C) tablet/chewable tablet 500 mg, 500 mg, oral, BID, Rachna Burt MD, 500 mg at 10/25/172157 ??? aspirin enteric coated tablet 81 mg, 81 mg, oral, Daily, Rachna Burt MD, 81 mg at ??? atorvastatin (LIPITOR) tablet 20 mg, 20 mg, oral, Daily, Rachna Burt MD, 20 mg at ??? bisacodyl (DULCOLAX) suppository 10 mg, 10 mg, rectal, Daily PRN, Rachna Burt MD ??? budesonide-formoterol (SYMBICORT) 80-4.5 mcg/actuation inhaler 1 puff, 1 puff, inhalation, BID (RT), Rachna Burt MD, 1 puff at 10/25/172044 ??? bumetanide (BUMEX) tablet 0.25 mg, 0.25 mg, oral, Daily, Rachna Burt MD, 0.25 mg at 10/25/17 0751 ??? chlorhexidine (PERIDEX) 0.12 % solution 5 mL, 5 mL, mouth/throat, BID, Rachna Burt MD, 5 mL at 10/25/172205 ??? collagenase 250 unit/gram ointment, , topical, Daily, Rachna Burt MD ??? dextrose (GLUTOSE) 40 % gel 15 g, 15 g, oral, Q15 Min PRN, Jason Shore Jr., OWNER/PHOTOGRAPHER ??? dextrose 50% (concentrated solution) CONCENTRATED solution 25 g, 25 g, intravenous, Q15 Min PRN, Jason Shore Jr., OWNER/PHOTOGRAPHER ??? diphenhydrAMINE (BENADRYL) tab/cap 25 mg, 25 mg, oral, TID PRN, Rachna Burt MD ??? docusate sodium (COLACE) capsule 100 mg, 100 mg, oral, BID, Rachna Burt MD, 100 mg at 10/25/172157 ??? glucagon injection 1 mg, 1 mg, intramuscular, Q30 Min PRN, Jason Shore Jr., OWNER/PHOTOGRAPHER ??? insulin lispro (HumaLOG) injection 1-2 Units, 1-2 Units, subcutaneous, Nightly, Jason Lilly, OWNER/PHOTOGRAPHER ??? insulin lispro (HumaLOG) injection 1-3 Units, 1-3 Units, subcutaneous, TID with meals, Jason Shore Jr., OWNER/PHOTOGRAPHER ??? ipratropium-albuterol (DUO-NEB) 0.5-2.5 mg/3 mL nebulizer solution 3 mL, 3 mL, nebulization, QID (RT), Александр Espino Jr., MD, 3 mL at 10/25/172043 ??? metFORMIN (GLUCOPHAGE) tablet 500 mg, 500 mg, oral, BID with meals (bkfst, dinner), Rachna Burt MD, 500 mg at 10/25/17 1708 ??? metoprolol (LOPRESSOR) tablet 12.5 mg, 12.5 mg, oral, BID, Rachna Burt MD, 12.5 mg at 10/25/172157 ??? miconazole 2 % powder, , topical, BID, Rachna Burt MD ??? ondansetron (ZOFRAN) tablet 4 mg, 4 mg, oral, Q4H PRN, Rachna Burt MD ??? oxyCODONE (ROXICODONE) tablet 10 mg, 10 mg, oral, Q4H PRN, Rachna Burt MD ??? oxyCODONE (ROXICODONE) tablet 5 mg, 5 mg, oral, Q4H PRN, Rachna Burt MD ??? pantoprazole DR (PROTONIX) extended release tablet 40 mg, 40 mg, oral, Daily, Rachna Burt MD, 40 mg at 10/25/17750 ??? polyethylene glycol (MIRALAX) packet 17 g, 17 g, oral, Daily PRN, Rachna Burt MD ??? senna (SENOKOT) tablet 1 tablet, 1 tablet, oral, Daily, Rachna Burt MD, 1 tablet at 10/25/17750 ??? sulfamethoxazole-trimethoprim (BACTRIM,SEPTRA) 800-160 mg per tablet 1 tablet, 1 tablet, oral, BID, Rachna Burt MD, 1 tablet at 10/25/172157 ??? tamsulosin (FLOMAX) extended release capsule 0.4 mg, 0.4 mg, oral, Nightly, Rachna Burt MD, 0.4 mg at 10/25/172157 ??? zinc sulfate (ZINCATE) capsule 220 mg, 220 mg, oral, Daily, Rachna Burt MD, 220 mg at 10/25/17 170 ??? zolpidem (AMBIEN) tablet 5 mg, 5 mg, oral, Nightly PRN, Rachna Burt MD, 5 mg at 10/25/172158 SocHx: Social History Substance Use Topics ??? Smoking status: Former Smoker ??? Smokeless tobacco: Never Used ??? Alcohol use No FamHx: History reviewed. No pertinent family history. Review of Systems History from patient and medical records General positive for - fatigue ENT positive for - dysphagia CV positive for - chest pain, dyspnea on exertion, edema, irregular heartbeat and shortness of breath Respiratory positive for - pleuritic pain and shortness of breath GI positive for - change in bowel habits positive for - change in urinary stream MS positive for - gait disturbance, joint pain, joint stiffness and muscular weakness Neuro positive for - weakness All Other ROS Negative BP 117/69 (BP Location: Right arm, Patient Position: Lying) Pulse 88 Temp 36.8 ??C (98.2 ??F) (Oral) Resp 25 Ht 180.3 cm (5' 11 ) Wt 94.3 kg (208 lb) SpO2 100% BMI 29.01 kg/m?? Intake/Output Summary (Last 24 hours) at 10/26/17 0652 Last data filed at 10/26/17 0540 Gross per 24 hour Intake 0 ml Output 650 ml Net -650 ml Wt Readings from Last 3 Encounters: 10/24/17 94.3 kg (208 lb) 10/24/17 88.9 kg (196 lb) 02/22/17 116.1 kg (256 lb) General appearance Alert, no distress Head Normocephalic, without obvious abnormality, atraumatic Throat Oropharynx clear Neck Supple. Trach stoma healing Lungs Clear to auscultation bilaterally, diminished bases Chest wall +tenderness Heart Regular rate and rhythm Abdomen Soft, non-tender. Bowel sounds normal. G tube Extremities + edema Neurologic Diffusely weak CBC: Recent Labs Lab Units 10/26/17 0403 10/25/17 0540 10/24/17 1100 WHITE BLOOD CELLS K/cumm 9.2 8.0 12.1* HEMOGLOBIN g/dL 9.5* 9.1* 9.4* HEMATOCRIT % 31.1* 30.3* 31.2* PLATELETS K/cumm 152 155 199 BMP: Recent Labs Lab Units 10/26/17 0621 10/26/17 0403 10/25/17 2200 10/25/17 0540 10/24/17 1100 SODIUM mmol/L -- 136 -- -- 139 -- 137 POTASSIUM PLASMA mmol/L -- 4.6 -- -- 4.7 -- 4.6 CHLORIDE mmol/L -- 99 -- -- 99 -- 95* CO2 mmol/L -- 26 -- -- 30 -- 32 ANIONGAP mmol/L -- 11 -- -- 10 -- 10 GLUCOSE mg/dL -- 89 -- -- 82 -- 105 POC GLUCOSE MONITOR mg/dL 97 -- 137 < > -- < > -- BUN SERUM mg/dL -- 20 -- -- 24 -- 25 CREATININE mg/dL -- 0.88 -- -- 0.90 -- 0.83 CALCIUM mg/dL -- 9.0 -- -- 8.5 -- 9.1 ALBUMIN g/dL -- 3.1* -- -- 3.0* -- 3.3* ALK PHOS Units/L -- 114 -- -- 123 -- 136* ALT Units/L -- 65* -- -- 72* -- 84* AST Units/L -- 29 -- -- 30 -- 39 BILIRUBIN TOTAL mg/dL -- 0.5 -- -- 0.5 -- 0.5 < > = values in this interval not displayed. EKG: No results found for this or any previous visit. RADIOLOGY: No results found. 1. Debility: Complicated recent medical course. Comprehensive rehab program. 2. L1 abscess s/p debridement with MRSA empyema: Pain control. F/u with surgery team. Complete course of bactrim. Chest tube out 3. Respiratory failure: S/p trach, decannulated. Aggressive pulm toilet. BDs/inhaled steroids. Dr Espino following. NIPPV as required. H/o COPD and prior tobacco abuse. 4. Dysphagia: S/p PEG. TOWING PILOT, RD f/u. Aspiration precautions 5. Dm2: A1c 4.7%. Metformin held. SSI, accuchecks. RD eval. 6. CAD: ASA, statin, BBlocker 7. HTN: Metoprolol, bumex 8. Afib: Eliquis, amio, metoprolol 9. Urinary retention: Flomax, monitor UOP 10. Dyslipid; Statin 11. Anemia: ACD and ABLA. Monitor cbc, transfuse for hgb under 7 or if symptomatic. Thank you for involving me in this patient's care. I will continue to follow along with you. ?? DVT Prophylaxis: Eliquis ?? GI prophylaxis: PPI ?? Code Status Full Code 35 min were spent in the care of this patient today; this may have included family conferences, nursing conferences and discussion with any consultants Adam Pastor M.D. * Мария Ferrell - 10/25/2017 1:01 PM CDT Initial Nutrition Assessment Reason for Assessment: Initial Nutrition Assessment and Consult/Referral Encounter Date: 10/25/17 1:01 PM Nutrition Evaluation: Patient is a 66 y.o. male. Admit Dx: DEBILITY. Admitted on 10/24/2017, current LOS is 1 days. Patient's intake is adequate. Adding Glucerna - Chocolate TID to meet protein needs. Nutrition Screen What diet do you follow at home?: Regular Have You Recently Lost Weight Without Trying?: No Poor Oral Intake for Four or More Days Prior to Admission: No Objective Past Medical History: Diagnosis Date ??? A-fib (CMS/HCC) ??? A-fib (CMS/HCC) history ??? Chronic obstructive pulmonary disease (CMS/HCC) COPD ??? Coronary artery disease ??? Diabetes mellitus (CMS/HCC) ??? HX OTHER MEDICAL DJD ??? Hypertension Past Surgical History: Procedure Laterality Date ??? BACK SURGERY ??? TOTAL HIP ARTHROPLASTY Bilateral ??? TRACHEOSTOMY Anthropometrics Weight: 94.3 kg (208 lb) Admission Weight : 94.3 kg Weight Change: 5.44 kg (12.00 lbs) IBW/kg (Calculated) : 78 kg Height: 180.3 cm (5' 11 ) Weight in (lb) to have BMI = 25: 178.9 BMI (Calculated): 29 Intake/Output Summary (Last 24 hours) at 10/25/17 1301 Last data filed at 10/25/17 0625 Gross per 24 hour Intake 0 ml Output 600 ml Net -600 ml Medications and Lab Review: Scheduled Meds: amiodarone 200 mg oral BID apixaban 5 mg oral BID ascorbic acid 500 mg oral BID aspirin 81 mg oral Daily atorvastatin 20 mg oral Daily budesonide-formoterol 1 puff inhalation BID (RT) bumetanide 0.25 mg oral Daily chlorhexidine 5 mL mouth/throat BID docusate sodium 100 mg oral BID insulin lispro/aspart 1-2 Units subcutaneous Nightly insulin lispro/aspart 1-3 Units subcutaneous TID with meals ipratropium-albuterol 3 mL nebulization QID (RT) metFORMIN 500 mg oral BID with meals (bkfst, dinner) metoprolol 12.5 mg oral BID miconazole topical BID pantoprazole DR 40 mg oral Daily senna 1 tablet oral Daily sulfamethoxazole-trimethoprim 1 tablet oral BID tamsulosin 0.4 mg oral Nightly zinc sulfate 220 mg oral Daily Continuous Infusions: PRN Meds: ??? acetaminophen ??? albuterol ??? bisacodyl ??? dextrose ??? dextrose 50% ??? diphenhydrAMINE ??? glucagon ??? ondansetron ??? oxyCODONE ??? oxyCODONE ??? polyethylene glycol ??? zolpidem Sodium Date Value Ref Range Status 10/25/2017 139 135 - 145 mmol/L Final Potassium Date Value Ref Range Status 10/25/2017 4.7 3.3 - 4.9 mmol/L Final BUN Date Value Ref Range Status 10/25/2017 24 8 - 25 mg/dL Final Creatinine Date Value Ref Range Status 10/25/2017 0.90 0.80 - 1.30 mg/dL Final Albumin Date Value Ref Range Status 10/25/2017 3.0 (L) 3.5 - 5.0 g/dL Final Calcium Date Value Ref Range Status 10/25/2017 8.5 8.5 - 10.3 mg/dL Final ALT Date Value Ref Range Status 10/25/2017 72 (H) 7 - 55 Units/L Final AST Date Value Ref Range Status 10/25/2017 30 10 - 50 Units/L Final Alk phos Date Value Ref Range Status 10/25/2017 123 40 - 130 Units/L Final Lab Results Component Value Date HGBA1C 4.7 09/27/2017 Nursing Assessment: Last BM Date: 10/24/17 Bowel Sounds (All Quadrants): Active Rex Scale Score: 17 Skin Integrity: Tear Type of Wound (LDA): Wound Dietary Orders Start Ordered 10/25/17 1300 Oral Nutrition Supplements [facility] Supplement: Glucerna Shake - Chocolate 3 times daily Question: [facility] Supplement: Answer: Glucerna Shake - Chocolate 10/25/17 1200 10/25/17 1201 Adult Diet Modified Consistency; Mechanical Soft Diet effective now Question Answer Comment ([facility]) Diet type Modified Consistency Modified Consistency: Mechanical Soft 10/25/17 1201 Nutritional Needs and Diagnosis: Nutrition Diagnosis 1: Increased nutrient needs (protein) Related to: Wounds Evidenced by: Physicalfinding Impression: Pt met for consult- new admission to rehab. No documentation on intake; Pt states he has a good appetite and is eating 70% of meals. Encouraged protein intake. Pt receptive to chocolate Glucerna with each meal. Plan: Order Glucerna - Chocolate TID. Monitor labs, meal/supplement intake, and nutrition needs. Intervention and Monitoring: Goals: Tolerance of medical food supplement by next assessment, Oral intake to meet 75% estimated nutritional needs by next assessment Interventions: Encouragement, Medical food supplement Monitoring and Evaluation: PO intake, Supplement tolerance SALVADOR Jewell Cosigned by Patria Montez RD at 10/25/2017 2:46 PM CDT * Karina Kearns RRT - 10/25/2017 11:53 AM CDT 10/25/17 1100 RT Protocol Assessment RT Assessment Scoring Needed Bronchodilator Bronchodilator Assessment Scoring Pulmonary Status 3 Surgical Status <30 days ago 0 Chest X-Ray < WEEK 2 Respiratory Pattern 0 Mental Status/LOC 0 Cough 2 Breath Sounds 2 Level of Activity 1 Oxygen Required for SPO2 >92% 1 Bronhcodilator Assessment Score 11 Pt is sitting up in the chair on 2L Nasal Cannula. Spo2 95%. Breath sounds are diminished bilaterally. Occasional productive cough noted with clear sputum. CXR shows Worsening left basilar pleural-parenchymal opacities likely combination of pleural fluid and airspace disease. Persistent interstitial edema.Continue QID DuoNeb tx per protocol for 24 hours and re-evaluate. * Александр Espino Jr., MD - 10/25/2017 9:05 AM CDT Pulmonary / Critical Care Daily Progress Chief Complaint/HPI/Hospital Course: Up in chair. Good night. Tolerating BiPAP. Review of Systems: Review of Systems Constitutional: Positive for fatigue. Negative for chills and fever. HENT: Negative for congestion, sore throat and trouble swallowing. Respiratory: Positive for shortness of breath. Negative for cough, chest tightness and wheezing. Cardiovascular: Negative for chest pain and leg swelling. Gastrointestinal: Negative for diarrhea, nausea and vomiting. Genitourinary: Negative for dysuria and hematuria. Neurological: Positive for weakness. Negative for dizziness and headaches. Psychiatric/Behavioral: Negative for behavioral problems and sleep disturbance. Temp: [36.6 ??C (97.8 ??F)-36.7 ??C (98 ??F)] 36.6 ??C (97.8 ??F) Pulse: [83-96] 96 Resp: [16-20] 16 BP: (108-124)/(59-72) 108/59 FiO2 (%): [35 %] 35 % I/O last 2 completed shifts: In: - Out: 600 [Urine:600] No intake/output data recorded. Oxygen / Pulmonary Events Vent settings for last 24 hours: FiO2 (%): [35 %] 35 % Oxygen Therapy SpO2: 93 % O2 Therapy: Supplemental oxygen O2 Del Method: Nasal cannula FiO2 (%): 35 % O2 Flow Rate (L/min): 2 L/min] Physical exam: Physical Exam Constitutional: He is oriented to person, place, and time. He appears well- developed. No distress. HENT: Head: Normocephalic. Mouth/Throat: Oropharynx is clear and moist. Eyes: Pupils are equal, round, and reactive to light. Right eye exhibits no discharge. Left eye exhibits no discharge. Cardiovascular: Regular rhythm and normal heart sounds. Tachycardia present. Pulmonary/Chest: Effort normal and breath sounds normal. He has no wheezes. He has no rales. Abdominal: There is no rebound and no guarding. Peg Musculoskeletal: He exhibits no edema. Neurological: He is alert and oriented to person, place, and time. Psychiatric: He has a normal mood and affect. Current Facility-Administered Medications: ??? acetaminophen (TYLENOL) tablet 650 mg, 650 mg, oral, Q4H PRN, Rachna Burt MD ??? albuterol (PROVENTIL,VENTOLIN) 2.5 mg/0.5 mL nebulizer solution 5 mg, 5 mg, nebulization, Q6H PRN, Rachna Burt MD ??? amiodarone (PACERONE) tablet 200 mg, 200 mg, oral, BID, Rachna Burt MD, 200 mg at ??? apixaban (ELIQUIS) tablet 5 mg, 5 mg, oral, BID, Rachna Butr MD, 5 mg at 10/25/17750 ??? aspirin enteric coated tablet 81 mg, 81 mg, oral, Daily, Rachna Burt MD, 81 mg at ??? atorvastatin (LIPITOR) tablet 20 mg, 20 mg, oral, Daily, Rachna Burt MD, 20 mg at ??? bisacodyl (DULCOLAX) suppository 10 mg, 10 mg, rectal, Daily PRN, Rachna Burt MD ??? budesonide-formoterol (SYMBICORT) 80-4.5 mcg/actuation inhaler 1 puff, 1 puff, inhalation, BID (RT), Rachna Burt MD, 1 puff at 10/25/17 0851 ??? bumetanide (BUMEX) tablet 0.25 mg, 0.25 mg, oral, Daily, Rachna Burt MD, 0.25 mg at 10/25/17750 ??? chlorhexidine (PERIDEX) 0.12 % solution 5 mL, 5 mL, mouth/throat, BID, Rachna Burt MD, 5 mL at 10/25/17 0753 ??? dextrose (GLUTOSE) 40 % gel 15 g, 15 g, oral, Q15 Min PRN, Jason Shore Jr., OWNER/PHOTOGRAPHER ??? dextrose 50% (concentrated solution) CONCENTRATED solution 25 g, 25 g, intravenous, Q15 Min PRN, Jason Shore Jr., OWNER/PHOTOGRAPHER ??? diphenhydrAMINE (BENADRYL) tab/cap 25 mg, 25 mg, oral, TID PRN, Rachna Burt MD ??? docusate sodium (COLACE) capsule 100 mg, 100 mg, oral, BID, Rachna Burt MD, 100 mg at 10/25/17 0750 ??? glucagon injection 1 mg, 1 mg, intramuscular, Q30 Min PRN, Jason Shore Jr., OWNER/PHOTOGRAPHER ??? insulin lispro (HumaLOG) injection 1-2 Units, 1-2 Units, subcutaneous, Nightly, Jason Lilly, OWNER/PHOTOGRAPHER ??? insulin lispro (HumaLOG) injection 1-3 Units, 1-3 Units, subcutaneous, TID with meals, Jason Shore Jr., OWNER/PHOTOGRAPHER ??? ipratropium-albuterol (DUO-NEB) 0.5-2.5 mg/3 mL nebulizer solution 3 mL, 3 mL, nebulization, QID (RT), Александр Espino Jr., MD ??? metFORMIN (GLUCOPHAGE) tablet 500 mg, 500 mg, oral, BID with meals (bkfst, dinner), Rachna Burt MD, 500 mg at 10/25/17750 ??? metoprolol (LOPRESSOR) tablet 12.5 mg, 12.5 mg, oral, BID, Rachna Burt MD, 12.5 mg at 10/25/17 0752 ??? miconazole 2 % powder, , topical, BID, Rachna Burt MD ??? ondansetron (ZOFRAN) tablet 4 mg, 4 mg, oral, Q4H PRN, Rachna Burt MD ??? oxyCODONE (ROXICODONE) tablet 10 mg, 10 mg, oral, Q4H PRN, Rachna Burt MD ??? oxyCODONE (ROXICODONE) tablet 5 mg, 5 mg, oral, Q4H PRN, Rachna Burt MD ??? pantoprazole DR (PROTONIX) extended release tablet 40 mg, 40 mg, oral, Daily, Rachna Burt MD, 40 mg at 10/25/17750 ??? polyethylene glycol (MIRALAX) packet 17 g, 17 g, oral, Daily PRN, Rachna Burt MD ??? senna (SENOKOT) tablet 1 tablet, 1 tablet, oral, Daily, Rachna Burt MD, 1 tablet at 10/25/17750 ??? sulfamethoxazole-trimethoprim (BACTRIM,SEPTRA) 800-160 mg per tablet 1 tablet, 1 tablet, oral, BID, Rachna Burt MD, 1 tablet at 10/25/17 0751 ??? tamsulosin (FLOMAX) extended release capsule 0.4 mg, 0.4 mg, oral, Nightly, Rachna Burt MD, 0.4 mg at 10/24/17 2235 ??? zolpidem (AMBIEN) tablet 5 mg, 5 mg, oral, Nightly PRN, Rachna Burt MD, 5 mg at 10/24/17 2236 Labs: Labs reviewed Recent Results (from the past 24 hour(s)) CBC with auto differential Collection Time: 10/24/17 11:00 AM Result Value Ref Range WBC 12.1 (H) 3.8 - 9.9 K/cumm RBC 3.26 (L) 4.30 - 5.80 M/cumm Hgb 9.4 (L) 13.0 - 17.5 g/dL Hct 31.2 (L) 38.9 - 50.3 % MCV 95.7 81.3 - 96.4 fL MCH 28.8 27.1 - 33.3 pg MCHC 30.1 (L) 32.3 - 35.7 g/dL RDW CV 18.0 (H) 11.1 - 14.9 % RDW SD 63.1 (H) 35.7 - 48.1 fL Plt 199 150 - 400 K/cumm MPV 11.9 9.1 - 12.3 fL NRBC Abs 0.00 0.00 - 0.01 K/cumm Differential, auto Collection Time: 10/24/17 11:00 AM Result Value Ref Range Neutrophil absolute 10.5 (H) 1.7 - 6.5 K/cumm Immature granulocyte absolute 0.1 0.0 - 0.1 K/cumm Lymphocytes absolute 0.5 (L) 0.8 - 3.3 K/cumm Monocyte absolute 1.0 (H) 0.2 - 0.8 K/cumm Eosinophils absolute 0.0 0.0 - 0.5 K/cumm Basophils, abs 0.0 0.0 - 0.1 K/cumm Neutrophils 86.2 % Immature granulocytes 1.2 % Lymphocytes 4.3 % Monocytes 8.0 % Eosinophils 0.2 % Basophils 0.1 % Comprehensive metabolic panel Collection Time: 10/24/17 11:00 AM Result Value Ref Range Sodium 137 135 - 145 mmol/L Potassium 4.6 3.3 - 4.9 mmol/L CO2 32 22 - 32 mmol/L BUN 25 8 - 25 mg/dL Glucose 105 70 - 199 mg/dL Creatinine 0.83 0.80 - 1.30 mg/dL Calcium 9.1 8.5 - 10.3 mg/dL Chloride 95 (L) 97 - 110 mmol/L Albumin 3.3 (L) 3.5 - 5.0 g/dL AST 39 10 - 50 Units/L ALT 84 (H) 7 - 55 Units/L Alk phos 136 (H) 40 - 130 Units/L Bilirubin 0.5 0.1 - 1.2 mg/dL Protein, pl 5.7 (L) 6.5 - 8.5 g/dL Anion Gap 10 2 - 15 mmol/L eGFR Collection Time: 10/24/17 11:00 AM Result Value Ref Range GFR 90 mL/min/1.73 m2 Glucose POC Collection Time: 10/24/17 10:34 PM Result Value Ref Range Glucose, POC, bld 125 70 - 140 mg/dL Comprehensive metabolic panel Collection Time: 10/25/17 5:40 AM Result Value Ref Range Sodium 139 135 - 145 mmol/L Potassium 4.7 3.3 - 4.9 mmol/L CO2 30 22 - 32 mmol/L BUN 24 8 - 25 mg/dL Glucose 82 70 - 199 mg/dL Creatinine 0.90 0.80 - 1.30 mg/dL Calcium 8.5 8.5 - 10.3 mg/dL Chloride 99 97 - 110 mmol/L Albumin 3.0 (L) 3.5 - 5.0 g/dL AST 30 10 - 50 Units/L ALT 72 (H) 7 - 55 Units/L Alk phos 123 40 - 130 Units/L Bilirubin 0.5 0.1 - 1.2 mg/dL Protein, pl 5.0 (L) 6.5 - 8.5 g/dL Anion Gap 10 2 - 15 mmol/L CBC with auto differential Collection Time: 10/25/17 5:40 AM Result Value Ref Range WBC 8.0 3.8 - 9.9 K/cumm RBC 3.13 (L) 4.30 - 5.80 M/cumm Hgb 9.1 (L) 13.0 - 17.5 g/dL Hct 30.3 (L) 38.9 - 50.3 % MCV 96.8 (H) 81.3 - 96.4 fL MCH 29.1 27.1 - 33.3 pg MCHC 30.0 (L) 32.3 - 35.7 g/dL RDW CV 17.9 (H) 11.1 - 14.9 % RDW SD 64.8 (H) 35.7 - 48.1 fL Plt 155 150 - 400 K/cumm MPV 12.2 9.1 - 12.3 fL NRBC Abs 0.00 0.00 - 0.01 K/cumm Differential, auto Collection Time: 10/25/17 5:40 AM Result Value Ref Range Neutrophil absolute 6.6 (H) 1.7 - 6.5 K/cumm Immature granulocyte absolute 0.1 0.0 - 0.1 K/cumm Lymphocytes absolute 0.6 (L) 0.8 - 3.3 K/cumm Monocyte absolute 0.7 0.2 - 0.8 K/cumm Eosinophils absolute 0.0 0.0 - 0.5 K/cumm Basophils, abs 0.0 0.0 - 0.1 K/cumm Neutrophils 82.6 % Immature granulocytes 1.0 % Lymphocytes 7.0 % Monocytes 8.7 % Eosinophils 0.6 % Basophils 0.1 % eGFR Collection Time: 10/25/17 5:40 AM Result Value Ref Range GFR 87 mL/min/1.73 m2 Glucose POC Collection Time: 10/25/17 6:07 AM Result Value Ref Range Glucose, POC, bld 87 70 - 140 mg/dL Imaging: No results found. Diagnostics: Ejection fraction 65%. No vegetations. Mild left atrial enlarged Microbiology: Positive sputum culture for stenotrophomonas Assessment & Plan: Assessment/Plan Pneumonia Assessment & Plan Completed treatment for pneumonia, empyema prior to transfer to [facility]. Currently on Bactrim for stenotrophomonas pneumonia. Chest x-ray improved Diskitis Assessment & Plan Completed debridement, prolonged antibiotic therapy for an L1 diskitis. Has had some back pain. Hypercapnic respiratory failure (CMS/HCC) Assessment & Plan Successfully decannulated. FiO2 to maintain a saturation of 90%. Continue BiPAP at night. Eventual evaluation for home noninvasive positive pressure ventilation at night COPD (chronic obstructive pulmonary disease) ([facility]) Assessment & Plan Pulmonary function testing when stable. Continue inhaled bronchodilator therapy. Former smoker Assessment & Plan May meet criteria for lung cancer screen Chronic atrial fibrillation ([facility]) Assessment & Plan Hemodynamically stable. Has had problems with intermittent bleeding from trach site, skin tears andalso hematuria over the weekend. Continues on apixaban. Monitor for bleeding. Consider urology consultation of hematuria reoccur. Continue amiodarone, aspirin, Lipitor, metoprolol. Should be on apixaban as well Prophylaxis: DVT ppx: Long-term oral anticoagulation At Code Status: Full Code. Александр Espino Jr., MD 10/25/2017 9:11 AM This note was transcribed using Speech Recognition software. As a result, there may be grammatical and spelling errors that are unintended. Every attempt is made to have correct dictation. If there are any questions or major errors, please contact me documented in this encounter H&P Notes * Rachna Burt MD - 10/25/2017 10:19 AM CDT Physician Physical Assessment/ Post admission Evaluation ([facility]) Subjective Patient is a 66 y.o. male with chief complaint of debility. Primary language: Chief Complaint: Weakness, respiratory failure Rehab Impairment Code: Impairment Code Group: Debility HPI: Pt is a 66 yr old male with a PMH of COPD, A Fib,on long-term oral anticoagulation;hypertension, diabetes who presented to [facility] with respiratory failure. He orginally presented to an outside hospital on 07/29/17 for an L1 debridement associate d with an abscess. His subsequent medical course was complicated my MRSA empyema requiring chest tube placement with prolonged antibiotics, trachestomy for delayed weaning, PEG placement and mucus plugging. He has been doing very well at [facility]. He is participating in limited therapy. He was able to stand for a short period of time. He has been decannulated, in no respiratory distress and using O2 per nasal cannula. He is eating a Regulardiet with nectar thickened liquids. He has a wo und on his back on the left side that is being followed by wound care. Recently he was placed on Bactrium for Stenotrophomonas maltophiliaand he is currently on contact precautions for that. He has good family support at home. He is medically stab le, working with therapy and can tolerate 3 hours of intensive therapy to help improve his functional status and improve his gait,balance, and transfers to help move him more towards independent level of functioning. Date of onset:Date of Onset: 07/29/17 Date of admission:10/24/2017 Current Facility-Administered Medications: ??? acetaminophen (TYLENOL) tablet 650 mg, 650 mg, oral, Q4H PRN, Rachna Burt MD ??? albuterol (PROVENTIL,VENTOLIN) 2.5 mg/0.5 mL nebulizer solution 5 mg, 5 mg, nebulization, Q6H PRN, Rachna Burt MD ??? amiodarone (PACERONE) tablet 200 mg, 200 mg, oral, BID, Rachna Burt MD, 200 mg at ??? apixaban (ELIQUIS) tablet 5 mg, 5 mg, oral, BID, Rachna Burt MD, 5 mg at 10/25/17750 ??? aspirin enteric coated tablet 81 mg, 81 mg, oral, Daily, Rachna Burt MD, 81 mg at ??? atorvastatin (LIPITOR) tablet 20 mg, 20 mg, oral, Daily, Rachna Burt MD, 20 mg at ??? bisacodyl (DULCOLAX) suppository 10 mg, 10 mg, rectal, Daily PRN, Rachna Burt MD ??? budesonide-formoterol (SYMBICORT) 80-4.5 mcg/actuation inhaler 1 puff, 1 puff, inhalation, BID (RT), Rachna Burt MD, 1 puff at 10/25/17 0851 ??? bumetanide (BUMEX) tablet 0.25 mg, 0.25 mg, oral, Daily, Rachna Burt MD, 0.25 mg at 10/25/17 0751 ??? chlorhexidine (PERIDEX) 0.12 % solution 5 mL, 5 mL, mouth/throat, BID, Rachna Burt MD, 5 mL at 10/25/17 0753 ??? dextrose (GLUTOSE) 40 % gel 15 g, 15 g, oral, Q15 Min PRN, Jason Shore Jr., OWNER/PHOTOGRAPHER ??? dextrose 50% (concentrated solution) CONCENTRATED solution 25 g, 25 g, intravenous, Q15 Min PRN, Jason Shore Jr., OWNER/PHOTOGRAPHER ??? diphenhydrAMINE (BENADRYL) tab/cap 25 mg, 25 mg, oral, TID PRN, Rachna Burt MD ??? docusate sodium (COLACE) capsule 100 mg, 100 mg, oral, BID, Rachna Burt MD, 100 mg at 10/25/17 0750 ??? glucagon injection 1 mg, 1 mg, intramuscular, Q30 Min PRN, Jason Shore Jr., OWNER/PHOTOGRAPHER ??? insulin lispro (HumaLOG) injection 1-2 Units, 1-2 Units, subcutaneous, Nightly, Jason Lilly, OWNER/PHOTOGRAPHER ??? insulin lispro (HumaLOG) injection 1-3 Units, 1-3 Units, subcutaneous, TID with meals, Jason Shore Jr., OWNER/PHOTOGRAPHER ??? ipratropium-albuterol (DUO-NEB) 0.5-2.5 mg/3 mL nebulizer solution 3 mL, 3 mL, nebulization, QID (RT), Александр Espino Jr., MD ??? metFORMIN (GLUCOPHAGE) tablet 500 mg, 500 mg, oral, BID with meals (bkfst, dinner), Rachna Burt MD, 500 mg at 10/25/17 0751 ??? metoprolol (LOPRESSOR) tablet 12.5 mg, 12.5 mg, oral, BID, Rachna Burt MD, 12.5 mg at 10/25/17 0752 ??? miconazole 2 % powder, , topical, BID, Rachna Burt MD ??? ondansetron (ZOFRAN) tablet 4 mg, 4 mg, oral, Q4H PRN, Rachna Burt MD ??? oxyCODONE (ROXICODONE) tablet 10 mg, 10 mg, oral, Q4H PRN, Rachna Burt MD ??? oxyCODONE (ROXICODONE) tablet 5 mg, 5 mg, oral, Q4H PRN, Rachna Burt MD ??? pantoprazole DR (PROTONIX) extended release tablet 40 mg, 40 mg, oral, Daily, Rachna Burt MD, 40 mg at 10/25/17750 ??? polyethylene glycol (MIRALAX) packet 17 g, 17 g, oral, Daily PRN, Rachna Burt MD ??? senna (SENOKOT) tablet 1 tablet, 1 tablet, oral, Daily, Rachna Burt MD, 1 tablet at 10/25/17750 ??? sulfamethoxazole-trimethoprim (BACTRIM,SEPTRA) 800-160 mg per tablet 1 tablet, 1 tablet, oral, BID, Rachna Burt MD, 1 tablet at 10/25/17750 ??? tamsulosin (FLOMAX) extended release capsule 0.4 mg, 0.4 mg, oral, Nightly, Rachna Burt MD, 0.4 mg at 10/24/172234 ??? zolpidem (AMBIEN) tablet 5 mg, 5 mg, oral, Nightly PRN, Rachna Burt MD, 5 mg at 10/24/172235 Past Medical History: Diagnosis Date ??? A-fib (CMS/HCC) ??? A-fib (CMS/HCC) history ??? Chronic obstructive pulmonary disease (CMS/HCC) COPD ??? Coronary artery disease ??? Diabetes mellitus (CMS/HCC) ??? HX OTHER MEDICAL DJD ??? Hypertension Past Surgical History: Procedure Laterality Date ??? BACK SURGERY ??? TOTAL HIP ARTHROPLASTY Bilateral ??? TRACHEOSTOMY History reviewed. No pertinent family history. José Miguel Nia Jang reports that he has quit smoking. He has never used smokeless tobacco. He reports that he does not drink alcohol or use drugs. Prior Functional Status: Mobility status/Ambulation aid/assistive devices: Transfers: Independent Walking: Independent Walking assistive devices used: Cane Wheelchair mobility: Not applicable Stair negotiation: Independent Falls: Has the patient had 2 or more falls in the past year or any fall with injury in the past year?: Yes Activities of daily living (ADL) status/ Assistive devices used for ADLs: Dressing: Independent Bathing: Independent Toileting: Independent Bladder: Continent Bowel: Continent Domestic Chores: Independent Driving: Yes Functional limitations: Hearing: Normal Sensory Vision: Functional with lenses Cognition: Intact Communication: Normal Nutrition: Normal Pre-Hospital Vocational Status: Retired for age Home Setting: Split level home Prehospital Lives With: Spouse;Adult children Exterior Home Access: No steps Interior Home Access: Steps;Rail on right ascending Stairs needed to access: Bedroom Current functional status: ADL: Grooming: Grooming: Level of assistance: Set up;Independent UE Dressing: with assistance LE Dressing: with assistance Bathing: with assistance Toileting: with assistance Mobility/Transfers: Bed Mobility: , , , , , , , , , Transfers: Transfer From 1: Sit Transfer Type 1: To and from Transfer to 1: Wheelchair Transfer Level of Assistance 1: Maximum assistance Wheelchair: Ambulation, including distance and device: Distance (ft) 1: able to partially stand for 10-15 sec Patient/caregiver goals:Patient and Family Goals: To return home at [facility] Pre hospital Living environment: Home Setting: Split level home Prehospital Lives With: Spouse;Adult children Current Systems Summary: Height: Height: 180.3 cm (5' 11 ) Weight: Weight: 94.3 kg (208 lb) Diet: Diet: Regular, [place] Tract Thickened liquids Bladder: Bladder assessment: Incontinent,Number of accidents last 4 days: 3 Bowel: Bowel assessment: Continent Number of accidents last 4 days: 0 Date of last BM: Last BM Date: 10/24/17 Integumentary: Integumentary: Wound upper back Left Cardiopulmonary: Cardiopulmonary: Oxygen via nasal cannula Dialysis: Dialysis: N/A Pain: Pain: Patient has pain that is controlled on current regimen IVs: Vitals: 10/25/17 0851 BP: Pulse: Resp: Temp: SpO2: 93% Review of Systems Review of systems per HPI and otherwise all other systems are negative Physical exam: GENERAL: Pleasant and in no acute distress MENTAL STATUS: ??Awake, alert and oriented to person, place and time with normal attention span, insight, and concentration. ??Naming and repetition are normal. ??Remote and recent memory intact. ??Fund of knowledge is appropriate. SPEECH: ??Fluent, non-dysarthric, no aphasia noted CRANIAL NERVES: Visual herrera are full on confrontation. ??Pupils are equally round and reactive tolight??bilaterally. Extraocular movements are??full and intact. No nystagmus is noted. ??There is no loss of sensation over the face. ??There is no facial weakness or asymmetry. ??Hearing intact bilaterally to finger rubbing. Uvula and palate elevate in the midline. Shoulder shrug is symmetric. ??Tongue protrudes in the midline. MOTOR: Generalized weakness. Moves all extremities. BL LE: hip flexors 3/5, knee extension and flexion 4/5, BL DF 3/5 Bulk and tone are nomal. ??No abnormal movements are noted. REFLEXES: 1+ and symmetric in bilateral upper extremities. SENSORY: Intact to light??touch in all four extremities.?No extinction with bilateral stimulation. COORDINATION: ??Normal GAIT AND STATION: Not tested, per therapy notes CARDIOVASCULAR: Regular rate and rhythm. ??No murmurs, rubs, gallops or carotid bruits. LUNGS: Clear to auscultation bilaterally. No wheezes, rhonchi or rales. ABDOMEN: ??Soft and non-tender. ??Normal bowel sounds were noted. EXTREMITIES: ??No edema, back incision dehisced Impression Rehab Diagnosis: Respiratory Failure Impairment Code Group: Debility Physician Problem List/ Comorbidities: Active Problems: Chronic atrial fibrillation ([facility]) Former smoker COPD (chronic obstructive pulmonary disease) ([facility]) Hypercapnic respiratory failure ([facility]) Diskitis Pneumonia Rehabilitation Precautions/Restrictions: Falls;MRSA colonization;Isolation Medical Plan of Care 1. Debility: Complicated recent medical course. Comprehensive inpatient rehabilitation, family training, structured environment. 2. L1 abscess s/p debridement with MRSA empyema: Pain control. F/u with surgery team. Complete course of bactrim. Chest tube out. Wound care following back incision. 3. Respiratory failure: S/p trach, decannulated. Aggressive pulm toilet. BDs/inhaled steroids. Dr Espino following. NIPPV as required. H/o COPD and prior tobacco abuse. 4. Dysphagia: S/p PEG. TOWING PILOT, RD f/u. Aspiration precautions 5. Dm2: A1c 4.7%: prudent diet, diabetic education. Metformin, SSI, accuchecks. RD eval. 6. CAD: ASA, statin, BBlocker 7. HTN: Metoprolol, bumex 8. Afib: Eliquis, amio, metoprolol 9. Urinary retention: Flomax, monitor UOP 10. Dyslipid; Statin 11. Anemia: ACD and ABLA. Monitor cbc, transfuse for hgb under 7 or if symptomatic. 12. Nutrition: rd consult. * DVT prophylaxsis: eliquis * GI prophylaxsis: ppi Rehab Plan of Care The Interdisciplinary Team will work collaboratively to address the patient problems and goals to be managed by the Individualized Interdisciplinary Plan of Care. Multi-Disciplinary Problems Active Problems Problem: Health Behavior: Start Date: 10/24/17 Goal Start Date End Date Understanding of discharge needs will improve 10/24/17 -- Goal Intervention Frequency Start Date End Date Discuss information regarding discharge instructions -- 10/24/17 -- Goal Intervention Frequency Start Date End Date Identify discharge learning needs (meds, wound care, etc) -- 10/24/17 -- Goal Intervention Frequency Start Date End Date Collaborate with case management -- 10/24/17 -- Intervention Details: (Coordinate discharge planning if the patient needs post- hospital services onphysician order or complex needs related to functional status, cognitive ability, or social supportsystem) Goal Intervention Frequency Start Date End Date Arrange for needed discharge resources and transportation as appropriate -- 10/24/17 -- Goal Intervention Frequency Start Date End Date Identify discharge barriers -- 10/24/17 -- Goal Intervention Frequency Start Date End Date Collaborate with spanish interpreter -- 10/24/17 -- Problem: Lack of Knowledge: Start Date: 10/25/17 Goal Start Date End Date Ability to state ways to decrease the risk of falls will improve 10/25/17 -- Goal Intervention Frequency Start Date End Date Teach fall prevention measures -- 10/25/17 -- Goal Intervention Frequency Start Date End Date Teach information regarding appropriate environmental changes -- 10/25/17 -- Problem: Safety: Start Date: 10/25/17 Goal Start Date End Date Will remain free from falls 10/25/17 -- Goal Intervention Frequency Start Date End Date Assess risk factors for falls -- 10/25/17 -- Intervention Details: (including medications) Goal Intervention Frequency Start Date End Date Implement fall prevention measures -- 10/25/17 -- Goal Intervention Frequency Start Date End Date Collaborate with other disciplines -- 10/25/17 -- Intervention Details: (PT, OT, Pharmacy, MD, etc.) Goal Start Date End Date Will remain free from injury from falls 10/25/17 -- Goal Intervention Frequency Start Date End Date Provide safe environment for conduction of activities of daily living -- 10/25/17 -- Goal Start Date End Date Will remain free from falls and injury in home environment 10/25/17 -- Goal Intervention Frequency Start Date End Date Assess environmental risk factors -- 10/25/17 -- Problem: Activity: Start Date: 10/25/17 Goal Start Date End Date Mobility will improve 10/25/17 -- Goal Intervention Frequency Start Date End Date Encourage mobilization to extent of ability -- 10/25/17 -- Goal Intervention Frequency Start Date End Date Perform repositioning -- 10/25/17 -- Goal Intervention Frequency Start Date End Date Collaborate with physical therapy -- 10/25/17 -- Problem: Lack of Knowledge: Start Date: 10/25/17 Goal Start Date End Date Understanding of ways to prevent future skin breakdown will improve 10/25/17 -- Goal Intervention Frequency Start Date End Date Discuss precautions to protect skin integrity -- 10/25/17 -- Goal Intervention Frequency Start Date End Date Discuss treatment plan for related conditions -- 10/25/17 -- Goal Start Date End Date Ability to identify appropriate dietary choices will improve 10/25/17 -- Goal Intervention Frequency Start Date End Date Discuss dietary adjustments -- 10/25/17 -- Problem: Nutritional: Start Date: 10/25/17 Goal Start Date End Date Dietary intake will improve 10/25/17 -- Goal Intervention Frequency Start Date End Date Assess nutritional status -- 10/25/17 -- Goal Intervention Frequency Start Date End Date Collaborate with dietitian -- 10/25/17 -- Goal Intervention Frequency Start Date End Date Assist appropriate dietary choices -- 10/25/17 -- Goal Start Date End Date Ability to maintain a balanced intake and output will improve 10/25/17 -- Goal Intervention Frequency Start Date End Date Assess intake and output -- 10/25/17 -- Problem: Skin Integrity: Start Date: 10/25/17 Goal Start Date End Date Risk for impaired skin integrity will decrease 10/25/17 -- Goal Intervention Frequency Start Date End Date Identify risk factors for impaired skin integrity and/or pressure injuries -- 10/25/17 -- Goal Intervention Frequency Start Date End Date Monitor medication effects -- 10/25/17 -- Goal Intervention Frequency Start Date End Date Implement precautions to protect skin integrity -- 10/25/17 -- Goal Intervention Frequency Start Date End Date Use moisturizing agent to dry skin -- 10/25/17 -- Goal Intervention Frequency Start Date End Date Perform cleansing of skin when soiled -- 10/25/17 -- Goal Intervention Frequency Start Date End Date Provide pressure-relief bed or mattress -- 10/25/17 -- Goal Start Date End Date Ability to demonstrate warm and dry skin will improve 10/25/17 -- Goal Intervention Frequency Start Date End Date Monitor skin integrity, appearance and/or temperature -- 10/25/17 -- Goal Start Date End Date Circulation will improve to fullest extent possible 10/25/17 -- Goal Intervention Frequency Start Date End Date Assess circulation, sensation and/or motion of extremity -- 10/25/17 -- Problem: Bladder/Voiding Start Date: 10/25/17 Goal Start Date End Date LTG - Patient will achieve acceptable level of continence 10/25/17 -- Goal Start Date End Date STG - Patient demonstrates no accidents 10/25/17 -- Goal Intervention Frequency Start Date End Date Encourage toileting PRN 10/25/17 -- Goal Intervention Frequency Start Date End Date Educate patient about medications PRN 10/25/17 -- Problem: Bowel Elimination Start Date: 10/25/17 Goal Start Date End Date LTG - Patient will have regular and routine bowel evacuation 10/25/17 -- Goal Start Date End Date LTG - Patient will complete bowel elimination 10/25/17 -- Goal Start Date End Date STG - Patient maintains skin integrity 10/25/17 -- Goal Intervention Frequency Start Date End Date Educate patient about ostomy appliances, correct application, protection of skin PRN 10/25/17 -- Goal Start Date End Date STG - Patient will verbalize signs and symptoms of constipation and how to prevent/alleviate 10/25/17 -- Goal Intervention Frequency Start Date End Date Encourage use of aids (stool softener, laxative, suppository) PRN 10/25/17 -- Goal Intervention Frequency Start Date End Date Encourage adjustment and monitoring of fluid intake PRN 10/25/17 -- Goal Intervention Frequency Start Date End Date Teach patient about symptoms of impaction PRN 10/25/17 -- Goal Intervention Frequency Start Date End Date Educate patient about effect of fluid intake on bowel movement PRN 10/25/17 -- Goal Intervention Frequency Start Date End Date Educate patient about adequate fluid intake PRN 10/25/17 -- Goal Start Date End Date STG - Patient will be continent of stool 10/25/17 -- Goal Start Date End Date STG - Patient verbalizes knowledge about relationship between diet, fluid intake, activity and medication on constipation 10/25/17 -- Goal Intervention Frequency Start Date End Date Educate patient about medications PRN 10/25/17 -- Goal Intervention Frequency Start Date End Date Educate patient about adequate fluid intake PRN 10/25/17 -- Problem: Breathing Start Date: 10/25/17 Goal Start Date End Date STG - Respiratory rate and effort will be within normal limits for the patient 10/25/17 -- Goal Intervention Frequency Start Date End Date Provide oxygen therapy as ordered PRN 10/25/17 -- Goal Intervention Frequency Start Date End Date Monitor oygen saturation PRN 10/25/17 -- Goal Intervention Frequency Start Date End Date Encourage incentive spirometer x 10 each hour while awake PRN 10/25/17 -- Goal Intervention Frequency Start Date End Date Encourage/perform oral hygiene as appropriate PRN 10/25/17 -- Goal Intervention Frequency Start Date End Date Collaborate with respiratory therapy to administer medications/treatments PRN 10/25/17 -- Goal Start Date End Date STG - Patient/family will be able to verbalize oxygen safety precautions 10/25/17 -- Goal Intervention Frequency Start Date End Date Educate patient about oxygen PRN 10/25/17 -- Goal Start Date End Date STG - Patient will utilize incentive spirometer 10/25/17 -- Goal Intervention Frequency Start Date End Date Encourage incentive spirometer x 10 each hour while awake PRN 10/25/17 -- Goal Intervention Frequency Start Date End Date Encourage use of incentive spirometer PRN 10/25/17 -- Goal Start Date End Date STG - Patient performs or directs assisted coughing 10/25/17 -- Goal Intervention Frequency Start Date End Date Instruct on coughing and deep breathing PRN 10/25/17 -- Goal Intervention Frequency Start Date End Date Educate patient about forced cough PRN 10/25/17 -- Goal Intervention Frequency Start Date End Date Teach patient about assistive cough PRN 10/25/17 -- Problem: Pain Start Date: 10/25/17 Goal Start Date End Date STG - Pain is manageable through therapies 10/25/17 -- Goal Start Date End Date STG - Patient will verbalize an acceptable level of pain 10/25/17 -- Problem: OT Misc Start Date: 10/25/17 Goal Start Date End Date [facility] [place] 10/25/17 -- Goal Details: Pt to dress modified IND Goal Start Date End Date [facility] [place] 10/25/17 -- Goal Details: Pt to groom modified IND Goal Start Date End Date [facility] [place] 10/25/17 -- Goal Details: Pt to bathe with transfer modified IND Goal Start Date End Date [facility] [place] 10/25/17 -- Goal Details: Pt to toilet with transfer modified IND Goal Start Date End Date [facility] [place] 10/25/17 -- Goal Details: Pt to complete UE HEP with IND to promote IND with self care and functional transfers Patient's expected intensity and duration of participation in the interdisciplinary rehabilitation program and disciplines that comprise this team: Therapies required to achieve goals:The patient will benefit from integrated coordination of care from the following interdisciplinary services: Medical Supervision, 24 hours Rehabilitation Nursing, Physical Therapy, Occupational Therapy, Case Management;Respiratory Therapy;Speech Therapy;Social Work;Music Therapy Frequency and duration of therapies expect to be:Expected intensity and frequency of participation in the interdisciplinary rehab program is: 3 hours of therapy 5 days per week Expected intensity and frequency of Physical Therapy (PT): 1 hour per day per day over 5-6 days perweek Expected intensity and frequency of Occupational Therapy (OT): 1 hour per day per day over 5-6 daysper week Expected intensity and frequency of Speech Therapy (TOWING PILOT): 1 hour per day per day over 5-6 days per week Positive Predictors/Potential to Benefit: Strengths: Able to tolerate intensive inpatient rehab program;Good family/social support;Good premorbid functional status;Good premorbid medical status;Living in the community premorbidly;Motivated Possible Barriers to Progress/ Discharge:Barriers: Comorbidities Based on the patient's medical and functional status, their prognosis and expected level of functional improvement is Expected level of improvement is: very good Estimated Length of Stay in Days: Estimated Length of Stay: 14 days Anticipated Discharge Destination:Discharge Plan after IRF stay: Return home with and adult son Re-validation of Pre-Admission Screen: Pre-Admission Screen Status: I have reviewed this patient's Pre-admission Screening Information. I have personally reviewed the medical history and examined the patient. The patient is medically stable to participate in an inpatient rehabilitation program. In my rehabilitation experience and professional judgement, this patient meets medical necessity criteria and requires an inpatient rehabilitation stay to manage current nursing and medical issues. The patient requires supervision by rehabilitation physician three times a week. The patient requires the interdisciplinary team approach of an inpatient rehabilitation program. This patient can reasonably be expected to participate and benefit from the intensive inpatientprogram [facility] at [facility] . documented in this encounter Consult Notes * Dg Sanderson MD - 11/08/2017 11:29 PM CDTAssociated Order(s): IP CONSULT TO GASTROENTEROLOGY GI Consult Note Referring Provider: Rachna Burt MD SUBJECTIVE: Patient is a 66 y.o. male with chief complaint of wanting to have G-tube removed. Reason for consult: Removal of Gtube HPI: This is a patient who was on mechanical ventilation for prolonged period time after treatment for an empyema with chest tube placement and PEG placement. After course that the long-term acute care facility he was then transferred to rehabilitation. The gastrostomy tube was placed at another facility in September of this year. It has been functioning well. It is a removable PEG based upon the note. The patient has been swallowing well and has no further need for the gastrostomy tube. He is on apixaban anticoagulation for atrial fibrillation. Past Medical History: Diagnosis Date ??? A-fib (CMS/HCC) ??? A-fib (CMS/HCC) history ??? Chronic obstructive pulmonary disease (CMS/HCC) COPD ??? Coronary artery disease ??? Diabetes mellitus (CMS/HCC) ??? HX OTHER MEDICAL DJD ??? Hypertension Past Surgical History: Procedure Laterality Date ??? BACK SURGERY ??? TOTAL HIP ARTHROPLASTY Bilateral ??? TRACHEOSTOMY Prescriptions Prior to Admission Medication Sig Dispense Refill Last Dose ??? acetaminophen (TYLENOL) 325 mg tablet Take 650 mg by mouth every 4 (four) hours as needed for pain. ??? albuterol (PROVENTIL,VENTOLIN) 2.5 mg/0.5 mL solution for nebulization Take 5 mg by nebulization every 6 (six) hours as needed. ??? amiodarone (PACERONE) 200 mg tablet Take 200 mg by mouth 2 (two) times a day. ??? apixaban (ELIQUIS) 5 mg tablet Take 5 mg by mouth 2 (two) times a day. ??? aspirin 81 mg chewable tablet Take 81 mg by mouth daily. ??? atorvastatin (LIPITOR) 20 mg tablet Take 20 mg by mouth daily. ??? bisacodyl (DULCOLAX) 10 mg suppository Insert 10 mg into the rectum every third day. ??? bumetanide (BUMEX) 0.5 mg tablet Take 0.25 mg by mouth daily. ??? chlorhexidine (PERIDEX) 0.12 % solution Apply 5 mL to the mouth or throat 2 (two) times a day. ??? diphenhydrAMINE (BENADRYL) 25 mg capsule Take 25 mg by mouth 3 (three) times a day as needed for itching. ??? docusate (COLACE) liquid 50 mg/5 mL Take 100 mg by mouth daily. ??? famotidine (PEPCID) 20 mg tablet Take 20 mg by mouth 2 (two) times a day. ??? insulin lispro (HumaLOG) 100 unit/mL injection Inject 0-10 Units under the skin 4 (four) times a day (with meals and nightly). Low dose sliding scale ??? LORazepam (ATIVAN) 2 mg/mL injection Infuse 1 mg into a venous catheter every 6 (six) hours as needed for anxiety. ??? metoprolol (LOPRESSOR) 25 mg tablet Take 12.5 mg by mouth 2 (two) times a day. ??? ondansetron (ZOFRAN) 4 mg tablet Take 4 mg by mouth every 4 (four) hours as needed for nausea or vomiting. ??? oxyCODONE (ROXICODONE) 5 mg immediate release tablet Take 5 mg by mouth every 4 (four) hours asneeded. ??? oxyCODONE (ROXICODONE) 5 mg immediate release tablet Take 10 mg by mouth every 4 (four) hours as needed (prn pain scale 7-10). ??? polyethylene glycol (MIRALAX) 17 gram packet Take 17 g by mouth daily as needed. ??? senna (SENOKOT) 8.6 mg tablet Take 1 tablet by mouth daily. ??? sulfamethoxazole-trimethoprim (BACTRIM,SEPTRA) 800-160 mg per tablet Take 1 tablet by mouth 2 (two) times a day. ??? tamsulosin (FLOMAX) 0.4 mg extended release capsule Take 0.4 mg by mouth nightly. ??? zolpidem (AMBIEN) 5 mg tablet Take 5 mg by mouth nightly as needed for sleep. ??? aspirin (ASPIRIN LOW DOSE) 81 mg tablet take 1 Tablet (81MG) by oral route every day 0 Taking ??? budesonide-formoterol (SYMBICORT) 80-4.5 mcg/actuation inhaler Inhale 1 puff 2 (two) times a day. Taking ??? cyanocobalamin, vitamin B-12, 500 mcg lozenge Take by mouth. Taking ??? diclofenac DR (VOLTAREN) 75 mg EC tablet take 2 Tablet (150MG) by oral route every day (Patientnot taking: Reported on 02/22/2017 ) 0 Not Taking ??? doxepin (SINEquan) 25 mg capsule TAKE 1 CAPSULE TWICE A DAY Taking ??? ferrous fumarate 325 mg (106 mg iron) tablet Take 2 tablets by mouth daily. Taking ??? furosemide (LASIX) 20 mg tablet take 1 tablet by oral route every day (Patient not taking: Reported on 02/22/2017 ) 0 0 Not Taking ??? metFORMIN (GLUCOPHAGE) 500 mg tablet Take 500 mg by mouth 2 (two) times a day with meals. Taking ??? pantoprazole DR (PROTONIX) 40 mg EC tablet take 1 tablet by oral route every day 0 0 Taking ??? potassium chloride ER (potassium chloride ER) 10 mEq CR tablet TAKE ONE TABLET BY MOUTH ONCE DAILY WITH FOOD (Patient not taking: Reported on 02/22/2017 ) 30 0 Not Taking Allergies Allergen Reactions ??? Penicillins Social History Substance Use Topics ??? Smoking status: Former Smoker ??? Smokeless tobacco: Never Used ??? Alcohol use No History reviewed. No pertinent family history. Social History Social History ??? Marital status: Spouse name: N/A ??? Number of children: N/A ??? Years of education: N/A Occupational History ??? Not on file. Social History Main Topics ??? Smoking status: Former Smoker ??? Smokeless tobacco: Never Used ??? Alcohol use No ??? Drug use: No ??? Sexual activity: Defer Other Topics Concern ??? Not on file Social History Narrative ??? No narrative on file Review of Systems Vitals: 24hr Min/Max: Temp Min: 36.4 ??C (97.6 ??F) Max: 37 ??C (98.6 ??F) Pulse Min: 74 Max: 91 BP Min: 93/49 Max: 117/67 Resp Min: 18 Max: 18 SpO2 Min: 18 % Max: 98 % Most Recent : Vitals: 11/08/17 0853 11/08/17 1745 11/08/17 1925 11/08/17 2136 BP: 102/53 109/59 117/67 BP Location: Right arm Patient Position: Pulse: 91 74 76 76 Resp: 18 18 Temp: 36.4 ??C (97.6 ??F) TempSrc: Oral SpO2: (!) 18% 98% Weight: Height: OBJECTIVE: Physical Exam Constitutional: He is oriented to person, place, and time. He appears well- developed and well-nourished. HENT: Head: Normocephalic and atraumatic. Mouth/Throat: Oropharynx is clear and moist. Eyes: Pupils are equal, round, and reactive to light. Neck: Neck supple. No tracheal deviation present. No thyromegaly present. Cardiovascular: Normal rate, regular rhythm and normal heart sounds. No murmur heard. Pulmonary/Chest: Breath sounds normal. He has no wheezes. Abdominal: Soft. Bowel sounds are normal. He exhibits no distension and no mass. There is no tenderness. There is no rebound and no guarding. No hernia. Gastrostomy tube upper left mid abdomen was intact Musculoskeletal: He exhibits no edema. Lymphadenopathy: He has no cervical adenopathy. Neurological: He is alert and oriented to person, place, and time. Lab/Radiology/Diagnostic Review: No results found for this or any previous visit (from the past 12 hour(s)). No results found. ASSESSMENT/PLAN: For removal of PEG Active Problems: Chronic atrial fibrillation (CMS/HCC) Former smoker COPD (chronic obstructive pulmonary disease) (CMS/HCC) Hypercapnic respiratory failure (CMS/HCC) Diskitis Pneumonia Hyponatremia 1. After discussion with the patient and his , I waited until 2-3 hours after his last meal andremoved the gastrostomy tube. There is no evidence of any significant bleeding and there is no evidence of infection. Tract. Clean. This was then dressed with a 4 x 4 which should be changed once daily until there is no further drainage. Patient tolerated this well. * Nas De Oliveira DPM - 11/04/2017 5:03 PM CDTAssociated Order(s): IP CONSULT TO PODIATRY Initial Podiaty Consult Note Date of Consult: 11/04/2017 Patient's Primary Care Physician: Briana Medeiros MD Physician Requesting Consult: Dr. Burt Reason for Consultation: Onychomycosis, Diabetic foot care. Name: José Miguel Jang Age: 66 y.o. Race: Sex: male Chief Complaint/History of Present Illness Patient sen for DM foot care/consultation today with elongated toenails, right great toenail is also thickened and incurvated with mild tenderness. He has an abrasion/wound on the left great toe withBandaid. Past Medical History: Diagnosis Date ??? A-fib (CMS/HCC) ??? A-fib (CMS/HCC) history ??? Chronic obstructive pulmonary disease (CMS/HCC) COPD ??? Coronary artery disease ??? Diabetes mellitus (CMS/HCC) ??? HX OTHER MEDICAL DJD ??? Hypertension Past Surgical History: Procedure Laterality Date ??? BACK SURGERY ??? TOTAL HIP ARTHROPLASTY Bilateral ??? TRACHEOSTOMY Prescriptions Prior to Admission Medication Sig Dispense Refill Last Dose ??? acetaminophen (TYLENOL) 325 mg tablet Take 650 mg by mouth every 4 (four) hours as needed for pain. ??? albuterol (PROVENTIL,VENTOLIN) 2.5 mg/0.5 mL solution for nebulization Take 5 mg by nebulization every 6 (six) hours as needed. ??? amiodarone (PACERONE) 200 mg tablet Take 200 mg by mouth 2 (two) times a day. ??? apixaban (ELIQUIS) 5 mg tablet Take 5 mg by mouth 2 (two) times a day. ??? aspirin 81 mg chewable tablet Take 81 mg by mouth daily. ??? atorvastatin (LIPITOR) 20 mg tablet Take 20 mg by mouth daily. ??? bisacodyl (DULCOLAX) 10 mg suppository Insert 10 mg into the rectum every third day. ??? bumetanide (BUMEX) 0.5 mg tablet Take 0.25 mg by mouth daily. ??? chlorhexidine (PERIDEX) 0.12 % solution Apply 5 mL to the mouth or throat 2 (two) times a day. ??? diphenhydrAMINE (BENADRYL) 25 mg capsule Take 25 mg by mouth 3 (three) times a day as needed for itching. ??? docusate (COLACE) liquid 50 mg/5 mL Take 100 mg by mouth daily. ??? famotidine (PEPCID) 20 mg tablet Take 20 mg by mouth 2 (two) times a day. ??? insulin lispro (HumaLOG) 100 unit/mL injection Inject 0-10 Units under the skin 4 (four) times a day (with meals and nightly). Low dose sliding scale ??? LORazepam (ATIVAN) 2 mg/mL injection Infuse 1 mg into a venous catheter every 6 (six) hours as needed for anxiety. ??? metoprolol (LOPRESSOR) 25 mg tablet Take 12.5 mg by mouth 2 (two) times a day. ??? ondansetron (ZOFRAN) 4 mg tablet Take 4 mg by mouth every 4 (four) hours as needed for nausea or vomiting. ??? oxyCODONE (ROXICODONE) 5 mg immediate release tablet Take 5 mg by mouth every 4 (four) hours asneeded. ??? oxyCODONE (ROXICODONE) 5 mg immediate release tablet Take 10 mg by mouth every 4 (four) hours as needed (prn pain scale 7-10). ??? polyethylene glycol (MIRALAX) 17 gram packet Take 17 g by mouth daily as needed. ??? senna (SENOKOT) 8.6 mg tablet Take 1 tablet by mouth daily. ??? sulfamethoxazole-trimethoprim (BACTRIM,SEPTRA) 800-160 mg per tablet Take 1 tablet by mouth 2 (two) times a day. ??? tamsulosin (FLOMAX) 0.4 mg extended release capsule Take 0.4 mg by mouth nightly. ??? zolpidem (AMBIEN) 5 mg tablet Take 5 mg by mouth nightly as needed for sleep. ??? aspirin (ASPIRIN LOW DOSE) 81 mg tablet take 1 Tablet (81MG) by oral route every day 0 Taking ??? budesonide-formoterol (SYMBICORT) 80-4.5 mcg/actuation inhaler Inhale 1 puff 2 (two) times a day. Taking ??? cyanocobalamin, vitamin B-12, 500 mcg lozenge Take by mouth. Taking ??? diclofenac DR (VOLTAREN) 75 mg EC tablet take 2 Tablet (150MG) by oral route every day (Patientnot taking: Reported on 02/22/2017 ) 0 Not Taking ??? doxepin (SINEquan) 25 mg capsule TAKE 1 CAPSULE TWICE A DAY Taking ??? ferrous fumarate 325 mg (106 mg iron) tablet Take 2 tablets by mouth daily. Taking ??? furosemide (LASIX) 20 mg tablet take 1 tablet by oral route every day (Patient not taking: Reported on 02/22/2017 ) 0 0 Not Taking ??? metFORMIN (GLUCOPHAGE) 500 mg tablet Take 500 mg by mouth 2 (two) times a day with meals. Taking ??? pantoprazole DR (PROTONIX) 40 mg EC tablet take 1 tablet by oral route every day 0 0 Taking ??? potassium chloride ER (potassium chloride ER) 10 mEq CR tablet TAKE ONE TABLET BY MOUTH ONCE DAILY WITH FOOD (Patient not taking: Reported on 02/22/2017 ) 30 0 Not Taking Allergies Allergen Reactions ??? Penicillins Social History Substance Use Topics ??? Smoking status: Former Smoker ??? Smokeless tobacco: Never Used ??? Alcohol use No History reviewed. No pertinent family history. Review of Systems A comprehensive review of systems was negative except as described in HPI. Exam Vitals: 11/03/17 2147 11/04/17 0415 11/04/17 0814 11/04/17 1500 BP: 104/53 157/65 BP Location: Right arm Right arm Patient Position: Lying Pulse: 89 74 Resp: Temp: 36.7 ??C (98 ??F) 36.3 ??C (97.4 ??F) TempSrc: Oral Oral SpO2: 98% 92% 91% 100% Weight: Height: Vascular Exam: Pedal pulses are palpable bilaterally, mild edema to feet/legs, no erythema, calor or signs of infection. Orthopedic Exam: Feet/toes are fairly rectus with no major deformities noted. Neurologic Exam: There is some reduced pain/light touch sensation to the toes bilaterally. Dermatologic Exam: Toenails are elongated x 10 with right hallux mycotic and incurvated medially and laterally with hypertrophy, discoloration, subungual debris and onycholysis. No secondary infection. Data Recent Results (from the past 24 hour(s)) MRSA PCR Collection Time: 11/04/17 9:41 AM Result Value Ref Range PCR Scrn, Methicillin resistant Staphylococcus aureus (MRSA) Negative Negative Assessment DM with onychomycosis/incurvated right hallux nail Plan Discussed above with patient/spouse. Recommended and performed manual debridement of right hallux nail without complication. Trimmed back all other nails as well, with minor bleeding noted on the third toe distal nail folds after debridement. Patient had shaking feet during my debridement. The third toes were cleansed and bandaged with polysporin and bandaid/coban. This may be removed tomorrow. Patient will benefit from periodic out-patient care/debridement of the right great toenail. Thank you for consulting me on this pleasant patient. Sherrell ValenzuelaPUsama., FACFAS * Adam Pastor MD - 10/25/2017 6:13 AM CDTAssociated Order(s): IP CONSULT TO INTERNAL MEDICINE Internal Medicine Consult Adam Pastor M.D. 10/25/2017 Patient Name: José Miguel Kramer Jang Admit Date: 10/24/2017 PCP: Briana Medeiros MD Consult requested by Dr Rachna Burt MD Patient Name: José Miguel Jang PCP: Briana Medeiros MD Date of admission: 10/24/2017 Date of Service: 10/25/2017 Reason for Consultation: Medical Management HPI: Patient is a 66 y.o. male with a history of COPD, A Fib, hypertension, and diabetes who presents for inpatient rehab after a complicated medical course. He orginally presented to an outside hospital on 07/29/17 for an L1 debridement associated with an abscess. His subsequent medical course was complicated by MRSA empyema requiring chest tube placement with prolonged antibiotics, trachestomy for delayed weaning, PEG placement and mucus plugging. He has been doing very well at [facility]. Heis participating in limited therapy. He was able to stand for a short period of time. He has been decannulated, in no respiratory distress and using O2 per nasal cannula. He is eating a Regular diet with nectar thickened liquids. He has a [facility] he was placed on Bactrim for Stenotrophomonas maltophilia and he is currently on contact precautions. He was stabilized, but remains debilitated. He will require inpatient rehab at this time PMHx: Past Medical History: Diagnosis Date ??? A-fib (CMS/HCC) ??? A-fib (CMS/HCC) history ??? Chronic obstructive pulmonary disease (CMS/HCC) COPD ??? Coronary artery disease ??? Diabetes mellitus (CMS/HCC) ??? HX OTHER MEDICAL DJD ??? Hypertension PSurgHx: Past Surgical History: Procedure Laterality Date ??? BACK SURGERY ??? TOTAL HIP ARTHROPLASTY Bilateral ??? TRACHEOSTOMY All: Allergies Allergen Reactions ??? Penicillins Outpt Meds: Prescriptions Prior to Admission Medication Sig Dispense Refill Last Dose ??? acetaminophen (TYLENOL) 325 mg tablet Take 650 mg by mouth every 4 (four) hours as needed for pain. ??? albuterol (PROVENTIL,VENTOLIN) 2.5 mg/0.5 mL solution for nebulization Take 5 mg by nebulization every 6 (six) hours as needed. ??? amiodarone (PACERONE) 200 mg tablet Take 200 mg by mouth 2 (two) times a day. ??? apixaban (ELIQUIS) 5 mg tablet Take 5 mg by mouth 2 (two) times a day. ??? aspirin 81 mg chewable tablet Take 81 mg by mouth daily. ??? atorvastatin (LIPITOR) 20 mg tablet Take 20 mg by mouth daily. ??? bisacodyl (DULCOLAX) 10 mg suppository Insert 10 mg into the rectum every third day. ??? bumetanide (BUMEX) 0.5 mg tablet Take 0.25 mg by mouth daily. ??? chlorhexidine (PERIDEX) 0.12 % solution Apply 5 mL to the mouth or throat 2 (two) times a day. ??? diphenhydrAMINE (BENADRYL) 25 mg capsule Take 25 mg by mouth 3 (three) times a day as needed for itching. ??? docusate (COLACE) liquid 50 mg/5 mL Take 100 mg by mouth daily. ??? famotidine (PEPCID) 20 mg tablet Take 20 mg by mouth 2 (two) times a day. ??? insulin lispro (HumaLOG) 100 unit/mL injection Inject 0-10 Units under the skin 4 (four) times a day (with meals and nightly). Low dose sliding scale ??? LORazepam (ATIVAN) 2 mg/mL injection Infuse 1 mg into a venous catheter every 6 (six) hours as needed for anxiety. ??? metoprolol (LOPRESSOR) 25 mg tablet Take 12.5 mg by mouth 2 (two) times a day. ??? ondansetron (ZOFRAN) 4 mg tablet Take 4 mg by mouth every 4 (four) hours as needed for nausea or vomiting. ??? oxyCODONE (ROXICODONE) 5 mg immediate release tablet Take 5 mg by mouth every 4 (four) hours asneeded. ??? oxyCODONE (ROXICODONE) 5 mg immediate release tablet Take 10 mg by mouth every 4 (four) hours as needed (prn pain scale 7-10). ??? polyethylene glycol (MIRALAX) 17 gram packet Take 17 g by mouth daily as needed. ??? senna (SENOKOT) 8.6 mg tablet Take 1 tablet by mouth daily. ??? sulfamethoxazole-trimethoprim (BACTRIM,SEPTRA) 800-160 mg per tablet Take 1 tablet by mouth 2 (two) times a day. ??? tamsulosin (FLOMAX) 0.4 mg extended release capsule Take 0.4 mg by mouth nightly. ??? zolpidem (AMBIEN) 5 mg tablet Take 5 mg by mouth nightly as needed for sleep. ??? aspirin (ASPIRIN LOW DOSE) 81 mg tablet take 1 Tablet (81MG) by oral route every day 0 Taking ??? budesonide-formoterol (SYMBICORT) 80-4.5 mcg/actuation inhaler Inhale 1 puff 2 (two) times a day. Taking ??? cyanocobalamin, vitamin B-12, 500 mcg lozenge Take by mouth. Taking ??? diclofenac DR (VOLTAREN) 75 mg EC tablet take 2 Tablet (150MG) by oral route every day (Patientnot taking: Reported on 02/22/2017 ) 0 Not Taking ??? doxepin (SINEquan) 25 mg capsule TAKE 1 CAPSULE TWICE A DAY Taking ??? ferrous fumarate 325 mg (106 mg iron) tablet Take 2 tablets by mouth daily. Taking ??? furosemide (LASIX) 20 mg tablet take 1 tablet by oral route every day (Patient not taking: Reported on 02/22/2017 ) 0 0 Not Taking ??? metFORMIN (GLUCOPHAGE) 500 mg tablet Take 500 mg by mouth 2 (two) times a day with meals. Taking ??? pantoprazole DR (PROTONIX) 40 mg EC tablet take 1 tablet by oral route every day 0 0 Taking ??? potassium chloride ER (potassium chloride ER) 10 mEq CR tablet TAKE ONE TABLET BY MOUTH ONCE DAILY WITH FOOD (Patient not taking: Reported on 02/22/2017 ) 30 0 Not Taking Inpatient Meds: Current Facility-Administered Medications: ??? acetaminophen (TYLENOL) tablet 650 mg, 650 mg, oral, Q4H PRN, Rachna Burt MD ??? albuterol (PROVENTIL,VENTOLIN) 2.5 mg/0.5 mL nebulizer solution 5 mg, 5 mg, nebulization, Q6H PRN, Rachna Burt MD ??? amiodarone (PACERONE) tablet 200 mg, 200 mg, oral, BID, Rachna Burt MD, 200 mg at 234 ??? apixaban (ELIQUIS) tablet 5 mg, 5 mg, oral, BID, Rachna Burt MD, 5 mg at 10/24/172234 ??? aspirin enteric coated tablet 81 mg, 81 mg, oral, Daily, Rachna Burt MD ??? atorvastatin (LIPITOR) tablet 20 mg, 20 mg, oral, Daily, Rachna Burt MD ??? bisacodyl (DULCOLAX) suppository 10 mg, 10 mg, rectal, Daily PRN, Rachna Burt MD ??? budesonide-formoterol (SYMBICORT) 80-4.5 mcg/actuation inhaler 1 puff, 1 puff, inhalation, BID (RT), Rachna Burt MD, 1 puff at 10/24/172118 ??? bumetanide (BUMEX) tablet 0.25 mg, 0.25 mg, oral, Daily, Rachna Burt MD ??? chlorhexidine (PERIDEX) 0.12 % solution 5 mL, 5 mL, mouth/throat, BID, Rachna Burt MD, 5 mL at 10/24/172235 ??? dextrose (GLUTOSE) 40 % gel 15 g, 15 g, oral, Q15 Min PRN, Jason Shore Jr., OWNER/PHOTOGRAPHER ??? dextrose 50% (concentrated solution) CONCENTRATED solution 25 g, 25 g, intravenous, Q15 Min PRN, Jason Shore Jr., OWNER/PHOTOGRAPHER ??? diphenhydrAMINE (BENADRYL) tab/cap 25 mg, 25 mg, oral, TID PRN, Rachna Burt MD ??? docusate sodium (COLACE) capsule 100 mg, 100 mg, oral, BID, Rachna Burt MD, 100 mg at 10/24/172233 ??? glucagon injection 1 mg, 1 mg, intramuscular, Q30 Min PRN, Jason Shore Jr., OWNER/PHOTOGRAPHER ??? insulin lispro (HumaLOG) injection 1-2 Units, 1-2 Units, subcutaneous, Nightly, Jason Lilly, OWNER/PHOTOGRAPHER ??? insulin lispro (HumaLOG) injection 1-3 Units, 1-3 Units, subcutaneous, TID with meals, Jason Shore Jr., OWNER/PHOTOGRAPHER ??? metFORMIN (GLUCOPHAGE) tablet 500 mg, 500 mg, oral, BID with meals (bkfst, dinner), Rachna Burt MD ??? metoprolol (LOPRESSOR) tablet 12.5 mg, 12.5 mg, oral, BID, Rachna Burt MD, 12.5 mg at 10/24/172235 ??? miconazole 2 % powder, , topical, BID, Rachna Burt MD ??? ondansetron (ZOFRAN) tablet 4 mg, 4 mg, oral, Q4H PRN, Rachna Burt MD ??? oxyCODONE (ROXICODONE) tablet 10 mg, 10 mg, oral, Q4H PRN, Rachna Burt MD ??? oxyCODONE (ROXICODONE) tablet 5 mg, 5 mg, oral, Q4H PRN, Rachna Burt MD ??? pantoprazole DR (PROTONIX) extended release tablet 40 mg, 40 mg, oral, Daily, Rachna Burt MD ??? polyethylene glycol (MIRALAX) packet 17 g, 17 g, oral, Daily PRN, Rachna Burt MD ??? senna (SENOKOT) tablet 1 tablet, 1 tablet, oral, Daily, Rachna Burt MD ??? sulfamethoxazole-trimethoprim (BACTRIM,SEPTRA) 800-160 mg per tablet 1 tablet, 1 tablet, oral, BID, Rachna Burt MD, 1 tablet at 10/24/172255 ??? tamsulosin (FLOMAX) extended release capsule 0.4 mg, 0.4 mg, oral, Nightly, Rachna Burt MD, 0.4 mg at 10/24/172234 ??? zolpidem (AMBIEN) tablet 5 mg, 5 mg, oral, Nightly PRN, Rachna Burt MD, 5 mg at 10/24/172235 SocHx: Social History Substance Use Topics ??? Smoking status: Former Smoker ??? Smokeless tobacco: Never Used ??? Alcohol use No FamHx: History reviewed. No pertinent family history. Review of Systems History from patient and medical records General positive for - fatigue ENT positive for - dysphagia CV positive for - chest pain, dyspnea on exertion, edema, irregular heartbeat and shortness of breath Respiratory positive for - pleuritic pain and shortness of breath GI positive for - change in bowel habits positive for - change in urinary stream MS positive for - gait disturbance, joint pain, joint stiffness and muscular weakness Neuro positive for - weakness All Other ROS Negative BP 124/72 (BP Location: Right arm, Patient Position: Lying) Pulse 83 Temp 36.6 ??C (97.8 ??F) (Axillary) Resp 16 Ht 180.3 cm (5' 11 ) Wt 94.3 kg (208 lb) SpO2 100% BMI 29.01 kg/m?? Intake/Output Summary (Last 24 hours) at 10/25/17 0745 Last data filed at 10/25/17 0625 Gross per 24 hour Intake 0 ml Output 600 ml Net -600 ml Wt Readings from Last 3 Encounters: 10/24/17 94.3 kg (208 lb) 10/24/17 88.9 kg (196 lb) 02/22/17 116.1 kg (256 lb) General appearance Alert, no distress Head Normocephalic, without obvious abnormality, atraumatic Throat Oropharynx clear Neck Supple. Trach stoma healing Lungs Clear to auscultation bilaterally, diminished bases Chest wall +tenderness Heart Regular rate and rhythm Abdomen Soft, non-tender. Bowel sounds normal. G tube Extremities + edema Neurologic Diffusely weak CBC: Recent Labs Lab Units 10/25/17 0540 10/24/17 1100 WHITE BLOOD CELLS K/cumm 8.0 12.1* HEMOGLOBIN g/dL 9.1* 9.4* HEMATOCRIT % 30.3* 31.2* PLATELETS K/cumm 155 199 BMP: Recent Labs Lab Units 10/25/17 0607 10/25/17 0540 10/24/17 2234 10/24/17 1100 SODIUM mmol/L -- 139 -- 137 POTASSIUM PLASMA mmol/L -- 4.7 -- 4.6 CHLORIDE mmol/L -- 99 -- 95* CO2 mmol/L -- 30 -- 32 ANIONGAP mmol/L -- 10 -- 10 GLUCOSE mg/dL -- 82 -- 105 POC GLUCOSE MONITOR mg/dL 87 -- 125 -- BUN SERUM mg/dL -- 24 -- 25 CREATININE mg/dL -- 0.90 -- 0.83 CALCIUM mg/dL -- 8.5 -- 9.1 ALBUMIN g/dL -- 3.0* -- 3.3* ALK PHOS Units/L -- 123 -- 136* ALT Units/L -- 72* -- 84* AST Units/L -- 30 -- 39 BILIRUBIN TOTAL mg/dL -- 0.5 -- 0.5 EKG: No results found for this or any previous visit. RADIOLOGY: No results found. 1. Debility: Complicated recent medical course. Comprehensive rehab program. 2. L1 abscess s/p debridement with MRSA empyema: Pain control. F/u with surgery team. Complete course of bactrim. Chest tube out 3. Respiratory failure: S/p trach, decannulated. Aggressive pulm toilet. BDs/inhaled steroids. Dr Espino following. NIPPV as required. H/o COPD and prior tobacco abuse. 4. Dysphagia: S/p PEG. TOWING PILOT, RD f/u. Aspiration precautions 5. Dm2: A1c 4.7%. Metformin, SSI, accuchecks. RD eval. 6. CAD: ASA, statin, BBlocker 7. HTN: Metoprolol, bumex 8. Afib: Eliquis, amio, metoprolol 9. Urinary retention: Flomax, monitor UOP 10. Dyslipid; Statin 11. Anemia: ACD and ABLA. Monitor cbc, transfuse for hgb under 7 or if symptomatic. Thank you for involving me in this patient's care. I will continue to follow along with you. ?? DVT Prophylaxis: Eliquis ?? GI prophylaxis: PPI ?? Code Status Full Code 1 hour were spent in the care of this patient today; this may have included family conferences, nursing conferences and discussion with any consultants Adam Pastor M.D. documented in this encounter Nursing Notes * Moni Balderas, DONTAE - 10/25/2017 4:31 PM CDT Images from the original note were not included. Attached media from the original note were not included. 10/25/17 1629 Wound 10/24/17 Open wound Back Left;Medial Back Wound- dehisced Date First Assessed/Time First Assessed: 10/24/171999 Present on Hospital Admission: Yes Wound Type: Open wound Location: Back Location Orientation: Left;Medial Wound Description (Comments): Back Wound- dehisced Wound Status Evolving Wound Length (cm) 1 cm Wound Width (cm) 2 cm Wound Depth (cm) 1 Calculated Wound Size (cm^3) 2 cm^2 Slough Covering Wound Bed % 100 Granulation Covering Wound Bed % 0 Closure Unapproximated Images in this note were compressed because they were too large. The original images are available in the [employer]. documented in this encounter Miscellaneous Notes * Plan of Care - Brenden Pathak LCSW - 2017 2:31 PM CDT Pt not accepted to [facility]. He and his did accept going to [facility] today and pt discharged there to a halfway/ skilled/ medicare bed. [facility] per [place] will arrange for ptlow air loss mattress. Pt transported via [facility] van service. * Plan of Care - Eunice Cruz RN - 2017 11:14 AM CDT Activity: ??? Mobility will improve Adequate for Discharge Bladder/Voiding ??? LTG - Patient will achieve acceptable level of continence Adequate for Discharge ??? STG - Patient demonstrates no accidents Adequate for Discharge Bowel Elimination ??? LTG - Patient will have regular and routine bowel evacuation Adequate for Discharge ??? LTG - Patient will complete bowel elimination Adequate for Discharge ??? STG - Patient maintains skin integrity Adequate for Discharge ??? STG - Patient will verbalize signs and symptoms of constipation and how to prevent/alleviate Adequate for Discharge ??? STG - Patient will be continent of stool Adequate for Discharge ??? STG - Patient verbalizes knowledge about relationship between diet, fluid intake, activity and medication on constipation Adequate for Discharge Health Behavior: ??? Understanding of discharge needs will improve Adequate for Discharge Lack of Knowledge: ??? Ability to state ways to decrease the risk of falls will improve Adequate for Discharge Lack of Knowledge: ??? Understanding of ways to prevent future skin breakdown will improve Adequate for Discharge ??? Ability to identify appropriate dietary choices will improve Adequate for Discharge Nutritional: ??? Dietary intake will improve Adequate for Discharge ??? Ability to maintain a balanced intake and output will improve Adequate for Discharge Safety: ??? Will remain free from falls Adequate for Discharge ??? Will remain free from injury from falls Adequate for Discharge ??? Will remain free from falls and injury in home environment Adequate for Discharge Skin Integrity: ??? Risk for impaired skin integrity will decrease Adequate for Discharge ??? Ability to demonstrate warm and dry skin will improve Adequate for Discharge ??? Circulation will improve to fullest extent possible Adequate for Discharge Goals: Clinical Goals for the Shift: free from falls, DC to SNF this afternoon Summary: Patient remains free from falls. Resting in bed with present. Plan to discharge to SNF around 1 PM. No complaints at this time. Eunice Cruz RN * Plan of Care - Yesenia Chadwick RN - 2017 3:14 AM CDT Activity: ??? Mobility will improve Progressing Bladder/Voiding ??? LTG - Patient will achieve acceptable level of continence Progressing ??? STG - Patient demonstrates no accidents Progressing Bowel Elimination ??? LTG - Patient will have regular and routine bowel evacuation Progressing ??? LTG - Patient will complete bowel elimination Progressing ??? STG - Patient maintains skin integrity Progressing ??? STG - Patient will verbalize signs and symptoms of constipation and how to prevent/alleviate Progressing ??? STG - Patient will be continent of stool Progressing ??? STG - Patient verbalizes knowledge about relationship between diet, fluid intake, activity and medication on constipation Progressing Health Behavior: ??? Understanding of discharge needs will improve Progressing Lack of Knowledge: ??? Ability to state ways to decrease the risk of falls will improve Progressing Lack of Knowledge: ??? Understanding of ways to prevent future skin breakdown will improve Progressing ??? Ability to identify appropriate dietary choices will improve Progressing Nutritional: ??? Dietary intake will improve Progressing ??? Ability to maintain a balanced intake and output will improve Progressing Safety: ??? Will remain free from falls Progressing ??? Will remain free from injury from falls Progressing ??? Will remain free from falls and injury in home environment Progressing Skin Integrity: ??? Risk for impaired skin integrity will decrease Progressing ??? Ability to demonstrate warm and dry skin will improve Progressing ??? Circulation will improve to fullest extent possible Progressing Goals: Clinical Goals for the Shift: Last day of therapy today; prepare for discharge tomorrow to SNF Summary: Turn q2, prevalon boots, slept through the night with no complaints or issues. * Plan of Care - Kateryna Lunsford PT - 11/09/2017 5:13 PM CDT Problem: PT Misc Goal: LTG - Misc 1 Pt will roll SARAH and supine<-->sit EOB with supervision and bedrails as needed. Pt will sit<-->stand with minimum assist and appropriate assistive device. Pt will transfer bed<-->wheelchair/chair with minimum assist and appropriate assistive device. Outcome: Adequate for Discharge Pt did not meet any of these goals, but status is adequate for discharge due to pt discharging to SNF for continued PT. Goal: LTG - Misc 2 Pt will ambulate 150' w/ minimum assist and appropriate assistive device. Pt will ambulate up/down 4 stairs with mod assist and SARAH rails. Outcome: Adequate for Discharge Pt did not meet these 2 goals, but adequate for discharge due to SNF placement. * Plan of Care - Brenden Pathak LCSW - 11/09/2017 4:34 PM CDT Pt likely to be accepted at [facility] for 11/10 and was accepted at [facility]. Pt and prefer [facility] but the snf will have a nurse review in person in am and then give usthe ok. Pt will need a [facility] van for transport at set up with EMT [phone] at 1300 currently with wifeand pt aware of the 149.30 cost for trip. Sw will follow. * Plan of Care - Neena Jackson RN - 11/09/2017 1:14 PM CDT Goals: Activity: ??? Mobility will improve Progressing Bladder/Voiding ??? LTG - Patient will achieve acceptable level of continence Progressing ??? STG - Patient demonstrates no accidents Progressing Bowel Elimination ??? LTG - Patient will have regular and routine bowel evacuation Progressing ??? LTG - Patient will complete bowel elimination Progressing ??? STG - Patient maintains skin integrity Progressing ??? STG - Patient will verbalize signs and symptoms of constipation and how to prevent/alleviate Progressing ??? STG - Patient will be continent of stool Progressing ??? STG - Patient verbalizes knowledge about relationship between diet, fluid intake, activity and medication on constipation Progressing Health Behavior: ??? Understanding of discharge needs will improve Progressing Lack of Knowledge: ??? Ability to state ways to decrease the risk of falls will improve Progressing Lack of Knowledge: ??? Understanding of ways to prevent future skin breakdown will improve Progressing ??? Ability to identify appropriate dietary choices will improve Progressing Nutritional: ??? Dietary intake will improve Progressing ??? Ability to maintain a balanced intake and output will improve Progressing Safety: ??? Will remain free from falls Progressing ??? Will remain free from injury from falls Progressing ??? Will remain free from falls and injury in home environment Progressing Skin Integrity: ??? Risk for impaired skin integrity will decrease Progressing ??? Ability to demonstrate warm and dry skin will improve Progressing ??? Circulation will improve to fullest extent possible Progressing Clinical Goals for the Shift: Last day of therapy today; prepare for discharge tomorrow to SNF Summary: Patient having increased spasms this afternoon but very pleasant and agreeable. Pain and spasms better with medication. * Plan of Care - Dayan Perez MT-FLORY - 11/09/2017 8:59 AM CDT Problem: Cognitive: Goal: STG - Misc 1 Patient will execute multiple elements of a task with supervision Outcome: Completed Date Met: 11/09/17 Supervision to modified IND Goal: STG - Misc 2 Patient will increase problem solving to complete tasks at 90% or with supervision Outcome: Completed Date Met: 11/09/17 100% no additional cues at disch Problem: Physical Regulation: Goal: STG - Misc 3 Patient will increase general strength/coordination through various exercises with supervision until disch Outcome: Completed Date Met: 11/09/17 Goal met with supervision Problem: Respiratory: Goal: STG - Misc 4 Patient will maintain/increase SPO2 by 1% in at least one session prior to disch Outcome: Completed Date Met: 11/09/17 Goal met Goal: STG - Misc 5 Patient will increase pulmonary function through various exercises with supervision until disch Outcome: Completed Date Met: 11/09/17 Goal met with supervision Comments: MUSIC THERAPY * Plan of Care - Josefa Hardwick OT - 11/09/2017 7:31 AM CDT Problem: OT Misc Goal: LTG - Misc 1 Pt to dress modified IND Outcome: Progressing Goal: LTG - Misc 2 Pt to groom modified IND Outcome: Progressing Goal: LTG - Misc 3 Pt to bathe with transfer modified IND Outcome: Progressing Goal: LTG - Misc 4 Pt to toilet with transfer modified IND Outcome: Progressing Goal: LTG - Misc 5 Pt to complete UE HEP with IND to promote IND with self care and functional transfers Outcome: Progressing * Plan of Care - Amanda Burnette RN - 11/09/2017 3:45 AM CDT Goals: Clinical Goals for the Shift: work with therapy, planning for discharge to snf on . Controlpain and gain strength before then. Summary: Pt. Comfortably sleeping. No distress noted. Turn q2hr. Activity: ??? Mobility will improve Progressing Bladder/Voiding ??? LTG - Patient will achieve acceptable level of continence Progressing ??? STG - Patient demonstrates no accidents Progressing Bowel Elimination ??? LTG - Patient will have regular and routine bowel evacuation Progressing ??? LTG - Patient will complete bowel elimination Progressing ??? STG - Patient maintains skin integrity Progressing ??? STG - Patient will verbalize signs and symptoms of constipation and how to prevent/alleviate Progressing ??? STG - Patient will be continent of stool Progressing ??? STG - Patient verbalizes knowledge about relationship between diet, fluid intake, activity and medication on constipation Progressing Health Behavior: ??? Understanding of discharge needs will improve Progressing Lack of Knowledge: ??? Ability to state ways to decrease the risk of falls will improve Progressing Lack of Knowledge: ??? Understanding of ways to prevent future skin breakdown will improve Progressing ??? Ability to identify appropriate dietary choices will improve Progressing Nutritional: ??? Dietary intake will improve Progressing ??? Ability to maintain a balanced intake and output will improve Progressing Safety: ??? Will remain free from falls Progressing ??? Will remain free from injury from falls Progressing ??? Will remain free from falls and injury in home environment Progressing Skin Integrity: ??? Risk for impaired skin integrity will decrease Progressing ??? Ability to demonstrate warm and dry skin will improve Progressing ??? Circulation will improve to fullest extent possible Progressing * Plan of Care - Brenden Pathak LCSW - 11/08/2017 5:29 PM CDT I meet with and pt. [place] has no openings. Referrals sent to [facility] and [facility] per their request. We talked about transporttation to snf by car if therapy agrees or by ambulance and risk of non coverage and [facility] van that is private pay. willl for transportation decision and snf placement. * Patient Care Conference - Lucie Elizabeth - 11/08/2017 3:40 PM CDT Inpatient RehabilitationTeam Conference Note Date: 11/08/2017 Time: 3:40 PM Patient Name: José Miguel Jang Date of : 1950 Sex: Male Room/Bed: [place] [address] Admitting Diagnosis: DEBILITY Admit Date/Time: 10/24/2017 6:32 PM Admission Comments: No comment available Rehab Diagnosis:Rehab Diagnosis: Respiratory Failure Vitals: 11/08/17 0853 BP: 102/53 Pulse: 91 Resp: Temp: SpO2: Weight /Nutrition Weight: 93.2 kg (205 lb 7.5 oz) Weight change: Food consistency: Liquid consistency: Bladder and Bowel Accidents/Last BM Unmeasured Stool Occurrence 1 at 11/08 0520 1 at 11/07 0446 1 at 11/06 2059 1 at 11/01 0501 1 at 10/31 1550 1 at 10/30 0405 1 at 10/25 1999 Urinary Incontinence No at 11/08 0900 Yes at 11/08 0520 No at 11/07 2147 No at 11/06 1020 No at 11/05 2108 No at 11/05 1520 No at 11/05 1140 No at 11/05 0550 No at 11/04 191 No at 11/04 0020 No at 11/03 2130 No at 11/02 2200 No at 11/02 0720 No at 11/01 2145 No at 11/01 0911 No at 11/01 1999 (Comment: sometimes spills urinal) Yes at 10/31 1550 No at 10/31 0812 No at 10/30 2100 (Comment: sometimes spills urinal) No at 10/29 2100 (Comment: sometimes spills urinal) No at 10/28 2009 No at 10/28 0650 No at 10/27 2204 No at 10/27 191 No at 10/26 0830 No at 10/25 2300 No at 10/250 No at 10/25 1214 No at 10/25 1999 Bowel Incontinence No at 11/08 0520 No at 11/07 0446 No at 11/06 2058 Yes at 11/04 2230 Yes at 11/02 2200 Yes at 11/02 0720 Yes at 11/01 2145 Yes at 11/01 0501 Yes at 11/01 1999 Yes at 10/31 1550 No at 10/25 220 No at 10/25 1999 Toileting: Level of assistance Total at 10/25 08 Toileting: Assistance with -- at 11/07 1030 (Comment: total assist with urinal from sitting position ) -- at 11/01 0800 (Comment: incontinent of bowel) -- at 10/25 0800 (Comment: all) Pressure Ulcers No matching active lines, drains, or airways Patient Active Problem List Diagnosis Date Noted ??? Hyponatremia 10/27/2017 ??? Former smoker 10/25/2017 ??? COPD (chronic obstructive pulmonary disease) ([facility]) 10/25/2017 ??? Hypercapnic respiratory failure ([facility] 10/25/2017 ??? Diskitis 10/25/2017 ??? Pneumonia 10/25/2017 ??? Chronic atrial fibrillation ([facility]) 02/22/2017 Conference Led by: (Physician Name, Credentials and Specialty): Rachna Burt MD Team Members Present: Physician Superintendent Maintenance Airports: Rachna Burt MD Nursing Superintendent Maintenance Airports: Neena Jackson phlebotomy director Superintendent Maintenance Airports: (Jose Alberto SANCHEZ) PT Superintendent Maintenance Airports: Kateryna Lunsford PT OT Superintendent Maintenance Airports: Josefa Hardwick OT TOWING PILOT Superintendent Maintenance Airports: (Christina Chakraborty TOWING PILOT) Patient/Family Present: Patient Present: No Patient's Family Present: No Treatment Goals: Multi-Disciplinary Problems Active Problems Problem: Health Behavior: Start Date: 10/24/17 Goal Start Date End Date Understanding of discharge needs will improve 10/24/17 -- Goal Intervention Frequency Start Date End Date Discuss information regarding discharge instructions -- 10/24/17 -- Goal Intervention Frequency Start Date End Date Identify discharge learning needs (meds, wound care, etc) -- 10/24/17 -- Goal Intervention Frequency Start Date End Date Collaborate with case management -- 10/24/17 -- Intervention Details: (Coordinate discharge planning if the patient needs post- hospital services onphysician order or complex needs related to functional status, cognitive ability, or social supportsystem) Goal Intervention Frequency Start Date End Date Arrange for needed discharge resources and transportation as appropriate -- 10/24/17 -- Goal Intervention Frequency Start Date End Date Identify discharge barriers -- 10/24/17 -- Goal Intervention Frequency Start Date End Date Collaborate with spanish interpreter -- 10/24/17 -- Problem: Lack of Knowledge: Start Date: 10/25/17 Goal Start Date End Date Ability to state ways to decrease the risk of falls will improve 10/25/17 -- Goal Intervention Frequency Start Date End Date Teach fall prevention measures -- 10/25/17 -- Goal Intervention Frequency Start Date End Date Teach information regarding appropriate environmental changes -- 10/25/17 -- Problem: Safety: Start Date: 10/25/17 Goal Start Date End Date Will remain free from falls 10/25/17 -- Goal Intervention Frequency Start Date End Date Assess risk factors for falls -- 10/25/17 -- Intervention Details: (including medications) Goal Intervention Frequency Start Date End Date Implement fall prevention measures -- 10/25/17 -- Goal Intervention Frequency Start Date End Date Collaborate with other disciplines -- 10/25/17 -- Intervention Details: (PT, OT, Pharmacy, MD, etc.) Goal Start Date End Date Will remain free from injury from falls 10/25/17 -- Goal Intervention Frequency Start Date End Date Provide safe environment for conduction of activities of daily living -- 10/25/17 -- Goal Start Date End Date Will remain free from falls and injury in home environment 10/25/17 -- Goal Intervention Frequency Start Date End Date Assess environmental risk factors -- 10/25/17 -- Problem: Activity: Start Date: 10/25/17 Goal Start Date End Date Mobility will improve 10/25/17 -- Goal Intervention Frequency Start Date End Date Encourage mobilization to extent of ability -- 10/25/17 -- Goal Intervention Frequency Start Date End Date Perform repositioning -- 10/25/17 -- Goal Intervention Frequency Start Date End Date Collaborate with physical therapy -- 10/25/17 -- Problem: Lack of Knowledge: Start Date: 10/25/17 Goal Start Date End Date Understanding of ways to prevent future skin breakdown will improve 10/25/17 -- Goal Intervention Frequency Start Date End Date Discuss precautions to protect skin integrity -- 10/25/17 -- Goal Intervention Frequency Start Date End Date Discuss treatment plan for related conditions -- 10/25/17 -- Goal Start Date End Date Ability to identify appropriate dietary choices will improve 10/25/17 -- Goal Intervention Frequency Start Date End Date Discuss dietary adjustments -- 10/25/17 -- Problem: Nutritional: Start Date: 10/25/17 Goal Start Date End Date Dietary intake will improve 10/25/17 -- Goal Intervention Frequency Start Date End Date Assess nutritional status -- 10/25/17 -- Goal Intervention Frequency Start Date End Date Collaborate with dietitian -- 10/25/17 -- Goal Intervention Frequency Start Date End Date Assist appropriate dietary choices -- 10/25/17 -- Goal Start Date End Date Ability to maintain a balanced intake and output will improve 10/25/17 -- Goal Intervention Frequency Start Date End Date Assess intake and output -- 10/25/17 -- Problem: Skin Integrity: Start Date: 10/25/17 Goal Start Date End Date Risk for impaired skin integrity will decrease 10/25/17 -- Goal Intervention Frequency Start Date End Date Identify risk factors for impaired skin integrity and/or pressure injuries -- 10/25/17 -- Goal Intervention Frequency Start Date End Date Monitor medication effects -- 10/25/17 -- Goal Intervention Frequency Start Date End Date Implement precautions to protect skin integrity -- 10/25/17 -- Goal Intervention Frequency Start Date End Date Use moisturizing agent to dry skin -- 10/25/17 -- Goal Intervention Frequency Start Date End Date Perform cleansing of skin when soiled -- 10/25/17 -- Goal Intervention Frequency Start Date End Date Provide pressure-relief bed or mattress -- 10/25/17 -- Goal Start Date End Date Ability to demonstrate warm and dry skin will improve 10/25/17 -- Goal Intervention Frequency Start Date End Date Monitor skin integrity, appearance and/or temperature -- 10/25/17 -- Goal Start Date End Date Circulation will improve to fullest extent possible 10/25/17 -- Goal Intervention Frequency Start Date End Date Assess circulation, sensation and/or motion of extremity -- 10/25/17 -- Problem: Bladder/Voiding Start Date: 10/25/17 Goal Start Date End Date LTG - Patient will achieve acceptable level of continence 10/25/17 -- Goal Start Date End Date STG - Patient demonstrates no accidents 10/25/17 -- Goal Intervention Frequency Start Date End Date Encourage toileting PRN 10/25/17 -- Goal Intervention Frequency Start Date End Date Educate patient about medications PRN 10/25/17 -- Problem: Bowel Elimination Start Date: 10/25/17 Goal Start Date End Date LTG - Patient will have regular and routine bowel evacuation 10/25/17 -- Goal Start Date End Date LTG - Patient will complete bowel elimination 10/25/17 -- Goal Start Date End Date STG - Patient maintains skin integrity 10/25/17 -- Goal Intervention Frequency Start Date End Date Educate patient about ostomy appliances, correct application, protection of skin PRN 10/25/17 -- Goal Start Date End Date STG - Patient will verbalize signs and symptoms of constipation and how to prevent/alleviate 10/25/17 -- Goal Intervention Frequency Start Date End Date Encourage use of aids (stool softener, laxative, suppository) PRN 10/25/17 -- Goal Intervention Frequency Start Date End Date Encourage adjustment and monitoring of fluid intake PRN 10/25/17 -- Goal Intervention Frequency Start Date End Date Teach patient about symptoms of impaction PRN 10/25/17 -- Goal Intervention Frequency Start Date End Date Educate patient about effect of fluid intake on bowel movement PRN 10/25/17 -- Goal Intervention Frequency Start Date End Date Educate patient about adequate fluid intake PRN 10/25/17 -- Goal Start Date End Date STG - Patient will be continent of stool 10/25/17 -- Goal Start Date End Date STG - Patient verbalizes knowledge about relationship between diet, fluid intake, activity and medication on constipation 10/25/17 -- Goal Intervention Frequency Start Date End Date Educate patient about medications PRN 10/25/17 -- Goal Intervention Frequency Start Date End Date Educate patient about adequate fluid intake PRN 10/25/17 -- Problem: Breathing Start Date: 10/25/17 Goal Start Date End Date STG - Respiratory rate and effort will be within normal limits for the patient 10/25/17 -- Goal Intervention Frequency Start Date End Date Provide oxygen therapy as ordered PRN 10/25/17 -- Goal Intervention Frequency Start Date End Date Monitor oygen saturation PRN 10/25/17 -- Goal Intervention Frequency Start Date End Date Encourage incentive spirometer x 10 each hour while awake PRN 10/25/17 -- Goal Intervention Frequency Start Date End Date Encourage/perform oral hygiene as appropriate PRN 10/25/17 -- Goal Intervention Frequency Start Date End Date Collaborate with respiratory therapy to administer medications/treatments PRN 10/25/17 -- Goal Start Date End Date STG - Patient/family will be able to verbalize oxygen safety precautions 10/25/17 -- Goal Intervention Frequency Start Date End Date Educate patient about oxygen PRN 10/25/17 -- Goal Start Date End Date STG - Patient will utilize incentive spirometer 10/25/17 -- Goal Intervention Frequency Start Date End Date Encourage incentive spirometer x 10 each hour while awake PRN 10/25/17 -- Goal Intervention Frequency Start Date End Date Encourage use of incentive spirometer PRN 10/25/17 -- Goal Start Date End Date [facility] - Patient performs or directs assisted coughing 10/25/17 -- Goal Intervention Frequency Start Date End Date Instruct on coughing and deep breathing PRN 10/25/17 -- Goal Intervention Frequency Start Date End Date Educate patient about forced cough PRN 10/25/17 -- Goal Intervention Frequency Start Date End Date Teach patient about assistive cough PRN 10/25/17 -- Problem: Pain Start Date: 10/25/17 Goal Start Date End Date [facility] - Pain is manageable through therapies 10/25/17 -- Goal Start Date End Date [facility] - Patient will verbalize an acceptable level of pain 10/25/17 -- Problem: OT Misc Start Date: 10/25/17 Goal Start Date End Date [facility] [place] 1 10/25/17 -- Goal Details: Pt to dress modified IND Goal Start Date End Date [facility] [place] 2 10/25/17 -- Goal Details: Pt to groom modified IND Goal Start Date End Date [facility] [place] 3 10/25/17 -- Goal Details: Pt to bathe with transfer modified IND Goal Start Date End Date [facility] [place] 4 10/25/17 -- Goal Details: Pt to toilet with transfer modified IND Goal Start Date End Date [facility] [place] 5 10/25/17 -- Goal Details: Pt to complete UE HEP with IND to promote IND with self care and functional transfers Problem: Cognitive: Start Date: 10/25/17 Goal Start Date End Date [facility] 1 10/25/17 -- Goal Details: Patient will execute multiple elements of a task with supervision Goal Start Date End Date [facility] 2 10/25/17 -- Goal Details: Patient will increase problem solving to complete tasks at 90% or with supervision Problem: Physical Regulation: Start Date: 10/25/17 Goal Start Date End Date [facility] 3 10/25/17 -- Goal Details: Patient will increase general strength/coordination through various exercises with supervision until disch Problem: Respiratory: Start Date: 10/25/17 Goal Start Date End Date [facility] 4 10/25/17 -- Goal Details: Patient will maintain/increase SPO2 by 1% in at least one session prior to disch Goal Start Date End Date [facility] - [facility] [place] 5 10/25/17 -- Goal Details: Patient will increase pulmonary function through various exercises with supervision until disch Problem: PT [facility] [place] Start Date: 10/25/17 Goal Start Date End Date [facility] [place] 1 10/25/17 -- Goal Details: Pt will roll SARAH and supine<-->sit EOB with supervision and bedrails as needed.Pt will sit<-->stand with minimum assist and appropriate assistive device. Pt will transfer bed<-->wheelchair/chair with minimum assist and appropriate assistive device. Goal Start Date End Date [facility] [place] 2 10/25/17 -- Goal Details: Pt will ambulate 150' w/ minimum assist and appropriate assistive device. Pt will ambulate up/down 4 stairs with mod assist and SARAH rails. Goal Start Date End Date [facility] [place] 4 10/25/17 -- Goal Details: Pt will complete SARAH LE HEP x15 reps with supervision. Goal Start Date End Date [facility] [place] 5 10/25/17 -- Goal Details: Pt and/or family will verbalize and demonstrate understanding of pt's safety and mobility needs upon discharge. Current Functional Status: PT Functional Mobility: AM: OT Functional Mobility: Pt. completes supine to sit max assist and 2 person DEP for sit to stand with manual stand aid. Pt able to assist slightly more when pulling self up in manual sit to stand. Ptcompletes slide board transfer from elevated bed to max assist with complete set up. OT Self Care: DEP to SBA for self care with 1 to 2 people. Pt using rolling shower chair with sarah supports and manual stand aid 2 person with LE dressing. Pt demonstrates general decreased balance, endurance, strength and sensation. Pt will benefit from continued skilled OT to promote IND toward goals. Pt. vomiting this AM and RN notified. OT Cognition: WNL OT Communication: WNL TOWING PILOT Cognition: WFL TOWING PILOT Communication: WFL TOWING PILOT Swallowing: WFL: Regular consistency with thin liquids, tolerating diet well Caregiver at Discharge: SNF staff Living Setting at Discharge: Additional comments:: (see progress notes) Patient expects to be discharged to:: Private residence Steps: , , Anticipated Discharge Date: 11/10/17 Potential Halfway Needs/Follow-up: Potential Admissions Representative Needs: snf, Anticipated Supervision:24 hour Anticipated Equipment Needs: Wheelchair,tub bench,shower chair,sit to stand,garrett Strengths to Achieving Rehab Goals: Strengths: Able to tolerate intensive inpatient rehab program, Good family/social support, Good premorbid functional status, Good premorbid medical status, Living in the community premorbidly, Motivated Barriers to Achieving Rehab Goals: Barriers: Home design (decreased mobility,decreased ADL function,pain) Medical Barriers: G tube,flank wound Patient and Family Goals: SNF then home Weekly Team Goals: The team has reassessed the validity of the IRF stay and appropriateness of the goals established. Continue per above plan. Cosigned by Rachna Burt MD at 11/08/2017 5:53 PM CDT * Plan of Care - Neena Jackson RN - 11/08/2017 2:46 PM CDT Goals: Activity: ??? Mobility will improve Progressing Bladder/Voiding ??? LTG - Patient will achieve acceptable level of continence Progressing ??? STG - Patient demonstrates no accidents Progressing Bowel Elimination ??? LTG - Patient will have regular and routine bowel evacuation Progressing ??? LTG - Patient will complete bowel elimination Progressing ??? STG - Patient maintains skin integrity Progressing ??? STG - Patient will verbalize signs and symptoms of constipation and how to prevent/alleviate Progressing ??? STG - Patient will be continent of stool Progressing ??? STG - Patient verbalizes knowledge about relationship between diet, fluid intake, activity and medication on constipation Progressing Health Behavior: ??? Understanding of discharge needs will improve Progressing Lack of Knowledge: ??? Ability to state ways to decrease the risk of falls will improve Progressing Lack of Knowledge: ??? Understanding of ways to prevent future skin breakdown will improve Progressing ??? Ability to identify appropriate dietary choices will improve Progressing Nutritional: ??? Dietary intake will improve Progressing ??? Ability to maintain a balanced intake and output will improve Progressing Safety: ??? Will remain free from falls Progressing ??? Will remain free from injury from falls Progressing ??? Will remain free from falls and injury in home environment Progressing Skin Integrity: ??? Risk for impaired skin integrity will decrease Progressing ??? Ability to demonstrate warm and dry skin will improve Progressing ??? Circulation will improve to fullest extent possible Progressing Clinical Goals for the Shift: work with therapy, planning for discharge to snf on . Controlpain and gain strength before then. Summary: Patient has family visiting this afternoon. Sitting up in wheelchair without complaints. Pt moved rooms to [id number] * Plan of Care - Kateryna Lunsford, PT - 11/08/2017 12:54 PM CDT Problem: PT Misc Goal: LTG - Misc 1 Pt will roll SARAH and supine<-->sit EOB with supervision and bedrails as needed. Pt will sit<-->stand with minimum assist and appropriate assistive device. Pt will transfer bed<-->wheelchair/chair with minimum assist and appropriate assistive device. Outcome: Progressing Goal: LTG - Misc 2 Pt will ambulate 150' w/ minimum assist and appropriate assistive device. Pt will ambulate up/down 4 stairs with mod assist and SARAH rails. Outcome: Progressing Goal: LTG - Misc 4 Pt will complete SARAH LE HEP x15 reps with supervision. Outcome: Progressing Goal: LTG - Misc 5 Pt and/or family will verbalize and demonstrate understanding of pt's safety and mobility needs upon discharge. Outcome: Progressing * [facility] Note - Brenden Pathak LCSW - 11/08/2017 9:33 AM CDT Patient Information: OT Eval and Treat Last 72 Hours OT Evaluation No documentation. OT Treatment Row Name 11/07/17 1030 11/06/17 3973 Session Type Treatment Treatment OT Received On 11/07/17 -- Family/Caregiver Present No -- OT Functional Mobility -- Pt. completes supine to sit max assist and 2 person DEP for sit to stand with manual stand aid. Pt able to assist slightly more when pulling self up in manual sit to stand this date OT Self Care -- DEP to minimal assist for self care with 1 to 2 people. Pt using rolling shower chair with sarah supports and manual stand aid 2 person with LE dressing. Pt demonstrates general decreased balance, endurance, strength and sensation. Pt will benefit from continued skilled OT to promote IND toward goals. Pt. vomiting this AM and RN notified. OT Cognition -- Appears WNL OT Communication -- decreased vocal strength at times. Precautions Fall risk Fall risk Pain Assessment 0-10 0-10 Pain Score 5 - Moderate pain 8 Patient's Stated Pain Goal -- No pain Pain Type -- Acute pain Pain Location Back (Lumbar) Back (Lumbar) Pain Orientation -- Mid;Lower Pain Radiating Towards -- sarah LEs Pain Descriptors -- Cramping Pain Frequency -- Frequently Clinical Progression -- Not changed Pain Interventions Repositioned Medication (See MAR);RN Notified Pain Score 2 5 - Moderate pain -- Pain Location 2 Knee -- Pain Intervention(s) 2 Cold applied -- Grooming: Where assessed Wheelchair -- Grooming: Level of assistance Set up -- Grooming: Assistance with -- extra time to complete -- Bathing: Assistance with -- patient decline bathing, already dressed for a.m. in wc -- UE Dressing: Level of assistance Supervision -- UE Dressing: Assistance with -- supervision from chair -- LE Dressing: Level of assistance -- practiced adaptive equipment to don doff shoe/sock LLE -- LE Dressing: Assistance with -- able to doff with AE increased time, don sock/ assist c shoe -- LE Dressing: Equipment Utilized Dressing stick;Flight Manager;Sock aid -- Toileting: Assistance with -- total assist with urinal from sitting position -- Bed Mobility From 1 -- Supine Bed Mobility Type 1 -- To Bed Mobility to 1 -- Edge of bed Level of Assistance 1 -- Moderate assistance Bed Mobility Comments 1 -- Increased time Transfer From 1 -- Bed Transfer Type 1 -- To Transfer to 1 -- Wheelchair Technique 1 -- -- manual stand aid Transfer Level of Assistance 1 -- Maximum assistance x2 person Trials/Comments 1 Trial sit to stand transfer with stand lift for dry run transfer to roll in shower chair. Unable to complete with one person safely at this time. Pt requests staying up in stand aidfor 4 minutes to stretch back to help with spasms.. R Motion All Joints AROM -- R Weight/Reps/Sets All Joints 3x10 BUE ex 2# all planes with intermittent rest breaks -- L Motion All Joints AROM -- L Weight/Reps/Sets All Joints 3x10 BUE ex 2# all planes with intermittent rest breaks -- Other Exercise Tool 1 -- Dowel 3# x20 reps x 6 exercises with rest breaks in between; all completedseated Additional Activities Comments Patient engaged in fine motor in hand manipulation task to promote dexterity needed for dressing tasks. Able to complete with LUE with additional time and some hand over hand assistance, increased errors with in hand manipulation. -- Comments Intermittent rest breaks required throughout session. Patient c/o nausea second session, RN aware. -- Prognosis Good Good Problem List -- Decreased upper extremity range of motion;Decreased upper extremity strength;Decreased endurance;Decreased sensation;Decreased functional mobility;Decreased IADLs Barriers to Discharge -- Inaccessible home environment Plan Continue with current plan Continue with current plan Progress Progressing toward goals -- OT Notes (Notes from 11/06/17 through 11/08/17) No notes of this type exist for this encounter. , PT Eval and Treat Last 72 Hours PT Evaluation No documentation. PT TREATMENT (last 72 hours) PT Treatment Row Name 11/08/17 0900 11/08/17 0856 11/07/17 2147 11/07/17 1500 11/07/17 1419 Precautions Precautions Fall risk -- -- Fall risk -- Pain Assessment Pain Assessment -- -- No/denies pain No/denies pain -- Pain Score -- 7 0 - No pain -- 8 Patient's Stated Pain Goal -- -- No pain -- -- Cognition Orientation Level -- -- Oriented X4 -- -- Row Name 11/07/17 1155 11/07/17 1030 11/07/17 1015 11/07/17 1012 11/07/17 0950 PT Last Visit Session Type -- Treatment -- -- -- Precautions Precautions -- Fall risk -- Fall risk -- Pain Assessment Pain Assessment 0-10 0-10 -- -- -- Pain Score 7 5 - Moderate pain -- -- 8 Patient's Stated Pain Goal No pain -- -- -- -- Pain Type Other (Comment) back spasms -- -- -- -- Pain Location Back (Lumbar) Back (Lumbar) -- -- -- Pain Interventions -- Repositioned -- -- -- Pain 2 Pain Score 2 -- 5 - Moderate pain -- -- -- Pain Location 2 -- Knee -- -- -- Pain Intervention(s) 2 -- Cold applied -- -- -- Cognition Orientation Level -- -- Oriented X4 -- -- Transfer 1 Trials/Comments 1 -- Trial sit to stand transfer with stand lift for dry run transfer to roll in shower chair. Unable to complete with one person safely at this time. 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 PM: sit<-->stand x4 reps in // bars with max assist x1 + mod assist x1 with SARAH UE support and 3- 5 minute rest breaks required between attempts (1 min x2 reps, 45 sec x2 reps), WC-->bed transfer with total assist x2 via garrett lift, rolls SARAH in bed with mod assist and SARAH rails. Pt continues to express strong low back pain and constant muscle spasms in back that radiate throughout SARAH LEs, with a constant pain level between 7-8/10. RN notified each time and medications administered as able. Pt's left knee is more stiff, swollen, and inflamed today, limiting pt's ability to bear equal weight through it or extend it with multiple standing attempts in // bars. Left UE also continues to fatigue quickly and cannot support pt for long with standing. Pt is still max assist for supine-->sit EOB, but able to complete a right sided slideboard transfer w/ max assist x1 from elevated EOB. Pt continues to need max assist x2 for sit<-->stand training and total Ax2 via garrett lift for WC-->bed transfers. Pt's biggest limitations i nclude pain/spasms, left sided weakness, decreased ROM in SARAH hips/knees, and significant fatigue w/ exertion. Pt to benefit from LiteGait training next session if able to tolerate. Continue per planof care. -- -- -- -- Precautions Precautions Bed/Chair Alarm;Fall risk -- Fall risk -- -- Pain Assessment Pain Assessment 0-10 0-10 -- -- -- Pain Score 6 6 -- 8 8 Pain Type Chronic pain -- -- -- -- Pain Location Back (Lumbar) Back (Lumbar) -- -- -- Pain Orientation Lower;Mid Mid;Lower -- -- -- Pain Radiating Towards SARAH legs BLEs -- -- -- Pain Descriptors Aching;Cramping;Spasm Cramping -- -- -- Pain Frequency Frequently -- -- -- -- Pain Onset Progressive -- -- -- -- Clinical Progression Gradually worsening 01/13 LBP at end of session. PM tx: 01/13 LBP. RN told. -- -- -- -- Pain Interventions Medication (See MAR);Repositioned;RN Notified;Rest Medication (See MAR) -- -- -- Cognition Overall Cognitive Status WFL -- -- -- -- Orientation Level Oriented X4 -- -- -- -- Other Activities Other Activities Other (Comment) sit<-->stand training in // bars -- -- -- -- Other Activities Comments AM: sit<-->stand training x2 reps in // bars with max assist x2 (ptstood 2 min 15 seconds, then 40 seconds, w/ SARAH knees blocked and support behind SARAH hips to help w/ extension and upright posture). PM: sit<-->stand x4 reps in // bars with max assist x1 + modassist x1 (1 min x2 reps, 45 sec x2 reps) with 3-5 min seated rest break required between each attem pt w/ SARAH knees blocked and SARAH hips supported to improved extension and upright posture. -- -- -- -- Bed Mobility 1 Bed Mobility Comments 1 rolls SARAH with minimum to mod assist + SARAH rails, supine-->sit EOB w/ max assist and bedrail -- -- -- -- Transfer 1 Trials/Comments 1 EOB-->WC with max assist x1 via slide board towards right side -- -- -- -- Wheelchair Activities Wheelchair Type Recliner -- -- -- -- Wheelchair Cushion Pressure relieving -- -- -- -- Pressure Relief Type Tilt back manual -- -- -- -- Level of Assistance for Pressure Relief Activities Maximum assistance -- -- -- -- Wheelchair Parts Management No -- -- -- -- Propulsion Yes -- -- -- -- Propulsion Type 1 Manual -- -- -- -- Level 1 Level tile -- -- -- -- Method 1 Bilateral upper extremity -- -- -- -- Level of Assistance 1 Close supervision -- -- -- -- Distance (ft) 296 -- -- -- -- Description/ Details 1 Much extra time required due to SARAH UE weakness and fatigue. -- -- -- -- Ambulation Ambulation No -- -- -- -- Stairs Stairs No -- -- -- -- Assessment Potential/Prognosis Good -- -- -- -- Recommendation/Plan PT Recommendation/Plan Skilled PT -- -- -- -- Treatment/Interventions -- continue per plan of care -- -- -- -- PT Equipment Recommended -- further assessment required pending pt progress -- -- -- -- Row Name 11/06/17 1410 11/06/17 1331 11/06/17 1305 11/06/17 0953 11/06/17 0800 PT Last Visit Session Type Treatment -- Treatment -- -- Current Functional Status PT Functional Mobility Worked on sit-paving foreman parallel bars, MAx x 2 people but only MOd-Max of 1 person to maintain, bilateral knees blocked and hips blocked posteriorly to maintain.. performed twice, 60 seconds then 35 seconds. Also completed LE AROM exercises. -- -- -- -- Precautions Precautions Bed/Chair Alarm;Fall risk -- Fall risk Fall risk Fall risk Pain Assessment Pain Assessment 0-10 -- 0-10 -- -- Pain Score 8 8 8 -- -- Patient's Stated Pain Goal -- -- No pain -- -- Pain Type -- -- Acute pain -- -- Pain Location Back (Lumbar) -- Back (Lumbar) -- -- Pain Orientation -- -- Mid;Lower -- -- Pain Radiating Towards -- -- sarah LEs -- -- Pain Descriptors -- -- Cramping -- -- Pain Frequency -- -- Frequently -- -- Clinical Progression Not changed -- Not changed -- -- Pain Interventions Medication (See MAR) per RN prior to therapy -- Medication (See MAR);RN Notified -- -- Pain 2 Pain Score 2 5 - Moderate pain -- -- -- -- Pain Location 2 Knee -- -- -- -- Clinical Progression 2 Gradually worsening -- -- -- -- Pain Intervention(s) 2 Cold applied ice pack after therapy session -- -- -- -- Cognition Overall Cognitive Status WFL -- -- -- -- Orientation Level Oriented X4 -- -- -- -- Compliance/Behavior Easy to engage;Anxious pt is anxious about attempting stand, does better after tryi -- -- -- -- Static Standing Balance Static Standing-Balance Support Bilateral upper extremity supported -- -- -- -- Static Standing-Level of Assistance Maximum assistance -- -- -- -- Static Standing-Comment/# of Minutes 60 seconds once then 35 seconds once. bilateral knees blocked manually by PT, MAx support posteriorly at pt's hips to remain standing. -- -- -- -- Seated Seated-Exercises Lower extremity -- -- -- -- Equipment Theraband -- -- -- -- Reps/Sets 15 reps -- -- -- -- Seated-Motion AROM -- -- -- -- Seated-Exercise Comments LAQ bilat, hip flexion active Left and assisted Right. Knee flexion with green theraband Right leg, active motion against the floor with pillow case to reduce friction -- -- -- -- Other Activities Other Activities Comments sit-stand and standing tolerance practice in parallel bars. Max x 2 people to reach standing, bilateral knees blocked,Once upright, able to maintain with Moderate assist. Total time 60 seconds once then 35 seconds the 2nd trial.. Notably imroved upright posture & pt control during 2nd trial. -- -- -- -- Bed Mobility 1 Bed Mobility From 1 -- -- Supine -- -- Bed Mobility Type 1 -- -- To -- -- Bed Mobility to 1 -- -- Edge of bed -- -- Level of Assistance 1 -- -- Moderate assistance -- -- Bed Mobility Comments 1 Pt was already out of bed at PT arrival, remained out of bed thereafter -- Increased time -- -- Transfer 1 Transfer From 1 Sit -- Bed -- -- Transfer Type 1 To and from -- To -- -- Transfer to 1 Stand -- Wheelchair -- -- Technique 1 Sit to stand;Stand to sit -- -- manual stand aid -- -- Transfer Device 1 Parallel bars -- -- -- -- Transfer Level of Assistance 1 Maximum assistance x 2 people, bilateral knees blocked. -- Maximum assistance x2 person -- -- Trials/Comments 1 -- -- Pt requests staying up in stand aid for 4 minutes to stretch back to help with spasms.. -- -- Ambulation Ambulation No -- -- -- -- Recommendation/Plan PT Recommendation/Plan -- continue current plan of care -- -- -- -- PT Frequency -- 5-7x/week -- -- -- -- PT - OK to Discharge No -- -- -- -- Row Name 11/06/17 0758 11/06/1775411/05/17211711/05/17199911/05/17 1705 Precautions Precautions -- -- -- Fall risk -- Pain Assessment Pain Assessment -- 0-10 0-10 -- -- Pain Score 6 6 6 -- 6 Patient's Stated Pain Goal -- -- No pain -- -- Pain Type -- -- Acute pain -- -- Pain Location -- -- Back (Lumbar) -- -- Pain Orientation -- -- Mid;Lower -- -- Pain Radiating Towards -- -- BLEs, carson left -- -- Pain Descriptors -- -- Aching;Cramping;Spasm -- -- Pain Frequency -- -- Frequently -- -- Pain Interventions -- -- Medication (See MAR);Repositioned -- -- Cognition Orientation Level Oriented X4 -- -- -- -- Row Name 11/05/17 1137 Pain Assessment Pain Score 6 PT Notes (Notes from 11/06/17 through 11/08/17) No notes of this type exist for this encounter. , TOWING PILOT Eval and Treat Last 72 Hours TOWING PILOT Evaluation No documentation. TOWING PILOT Treatment No documentation. Clinical Swallow Study No documentation. TOWING PILOT Notes (Notes from 11/06/17 through 11/08/17) No notes of this type exist for this encounter. * [facility] Note - Brenden Pathak LCSW - 11/08/2017 9:30 AM CDT Patient Information: Comprehensive Nursing Documentation Travel and Exposure Screening Most Recent Value Travel Screening Traveled outside the [place] in the last month? No Filed On: 10/24/20171999 Exposure Screening Contact with someone with a communicable disease in the last month? No Filed On: 10/24/20171999 Symptoms Attending Provider: Rachna Burt MD Allergies: Penicillins Isolation: None Infection: None Code Status: FULL Ht: 180.3 cm (5' 11 ) Wt: 93.2 kg (205 lb 7.5 oz) Admission Cmt: None Principal Problem: None Intake/Output 11/05/17 0700 - 11/06/17 0659 11/06/17 0700 - 11/07/17 0659 11/07/17 0700 - 11/08/17 0659 Total Total 9989-3537 7980-0699 1364-2818 Total Intake (ml) 1260 960 -- -- -- -- Output (ml) 920 501 100 425 0 525 Net (ml) 340 459 -100 -425 0 -525 Last Weight -- 93.2 kg (205 lb 7.5 oz) -- -- -- -- Patient Lines/Drains/Airways Status Active Airway / Central venous catheter / Drain / Epidural cathether / Intraosseous line / Peripherally inserted central catheter / Peripheral intravenous line / Arterial line Name: Placement date: Placement time: Site: Days: Gastrostomy/Enterostomy Percutaneous endoscopic gastrostomy (PEG) 1 LUQ 09/15/17 54 Patient Lines/Drains/Airways Status Active Wound / Pressure ulcer / Slaughter / Negative Pressure Wound Wound 10/24/17 MASD (Moisture associated skin damage) Buttocks Bilateral MASD to buttocks; Redness to groin Date First Assessed 10/24/17 Site: Buttocks Time First Assessed 1999 Days: 14 Location Orientation: Bilateral Wound Description (Comments): MASD to buttocks; Redness to groin Wound Type: MASD (Moisture associated skin damage) Present on Hospital Admission: Yes Assessments 11/08/17 0911/07/17214611/07/17 1015 Wound Status Healing Healing Healing Site Assessment Crafton Crafton Crafton Mandy-wound Assessment Blanchable erythema;Fragile Blanchable erythema;Excoriated;Fragile Drainage Amount None Interventions Topical barrier cream;Cleansed Topical barrier cream Dressing Status Open to Air Wound 10/24/17 Open wound Back Left;Medial Back Wound- dehisced Date First Assessed 10/24/17 Site: Back Time First Assessed 1999 Days: 14 Location Orientation: Left;Medial Wound Description (Comments): Back Wound- dehisced Wound Type: Open wound Present on Hospital Admission: Yes Assessments 11/08/1789911/07/17214611/07/17 1015 Wound Status Healing Healing Healing Site Assessment Painful;Slough/fibrin Margins Defined edges Mandy-wound Assessment Fragile Closure Unapproximated Interventions Cleansed;Pharmacological (see MAR) Dressing Status Changed Changed Dressing Hydrocolloid;Moist to dry;Gauze Wound 10/29/17 Skin tear Arm Left 1cm Date First Assessed 10/29/17 Site: Arm Time First Assessed 2100 Days: 9 Location Orientation: Left Wound Description (Comments): 1cm Wound Type: Skin tear Present on Hospital Admission: No Assessments 11/08/1789911/07/17214611/07/17 1015 Wound Status Healing Healing Site Assessment Intact;Clean Mandy-wound Assessment Scabbed Dressing Status Clean/Dry/Intact Changed Dressing Gauze rolled Vaseline gauze;Gauze Wound 10/29/17 Abrasion(s) Groin Left Date First Assessed 10/29/17 Site: Groin Time First Assessed 2100 Days: 9 Location Orientation: Left Wound Type: Abrasion(s) Assessments 11/08/17 0911/07/17214611/07/17 1015 Wound Status Healing Healing Healing Site Assessment Intact;[place] Mandy-wound Assessment Color normal for ethnicity Dressing Status Changed Dressing Hydrocolloid;Gauze Wound 11/04/17 Skin tear Arm Right Date First Assessed 11/04/17 Site: Arm Time First Assessed 1641 Days: 3 Location Orientation: Right Wound Type: Skin tear Present on Hospital Admission: No Assessments 11/08/17 0900 11/07/17 2147 11/07/17 1015 Wound Status Healing Healing Site Assessment Clean;Dry;Intact Clean;Dry;Intact;[place] Drainage Amount Scant Drainage Description Serosanguineous Dressing Status Clean/Dry/Intact Changed Dressing Gauze rolled Wound gel;Vaseline gauze;Gauze Garcia Fall Risk Most Recent Value History of Falling 0 ............filed at 11/08/2017 09 Secondary Diagnosis 15 ............filed at 11/08/2017 09 Ambulatory Aids 0 ............filed at 11/08/2017 09 Intravenous Therapy/Heparin/Saline Lock 0 ............filed at 11/08/2017 0900 Gait/Transferring 20 ............filed at 11/08/2017 0900 Mental Status 0 ............filed at 11/08/2017 09 Radha Fall Risk Score 35 ............filed at 11/08/2017 0900 Vital Signs 11/07 699 - 11/08 0659 11/08 07 - 11/08 0931 Most Recent Temp (??C) 36.6 - 37 37 (98.6) Pulse 80 - 91 91 91 Resp 16 - 18 18 BP 93/49 - 111/66 102/53 102/53 SpO2 (%) 91 - 97 97 97 Default Flowsheet Data (most recent) Endurance Tests None Nursing Nutrition Feeding Level of Assistance Able to feed self at 11/07 1500 Able to feed self at 11/07 0000 Able to feed self;Needs set up at 11/06 0953 Able to feed self at 11/06 0800 Appetite Good at 11/07 0000 Good at 11/06 0953 Good at 11/06 0800 Nursing Mobility Activity Resting in bed at 11/08 0900 Resting in bed at 11/08 0022 Resting in bed at 11/07 2300 Resting in bed at 11/08 1999 Resting in bed at 11/07 1500 Chair at 11/07 1012 Resting in bed at 11/07 0600 Resting in bed at 11/07 0400 Resting in bed at 11/07 0200 Resting in bed at 11/07 0000 Resting in bed at 11/06 2200 Resting in bed at 11/06 2000 Resting in bed at 11/06 0953 Resting in bed at 11/06 0800 Resting in bed at 11/06 0600 Resting in bed at 11/06 0400 Resting in bed at 11/06 0200 -- at 11/06 0000 (Comment: on the bedpan) Resting in bed at 11/05 2200 Resting in bed at 11/06 1999 Level of Assistance Maximum assist, patient does 25-49% at 11/07 1012 Maximum assist, patient does 25-49% at 11/07 1999 Maximum assist, patient does 25-49% at 11/06 0953 Maximum assist, patient does 25-49% at 11/06 1999 Assistive Device Gait belt;Manual wheelchair;Other (Comment) at 11/07 1999 (Comment: garrett) Gait belt;Manual wheelchair;Mechanical lift at 11/06 952 Gait belt;Manual wheelchair;Other (Comment) at 11/06 1999 (Comment: garrett) Ambulation Response Tolerated poorly at 11/07 1999 Tolerated poorly at 11/06 1999 Repositioned Supine at 11/08 0500 Left side at 11/08 0400 Right side at 11/08 0200 Right side at 11/08 0022 Left side at 11/07 2325 Right side at 11/07 2300 Right side at 11/07 2147 Right side at 11/08 1999 Supine at 11/07 1500 Up in chair at 11/07 1012 Left side at 11/07 0600 (Comment: bed is on alternate) -- at 11/07 0400 (Comment: bed is on alternate) -- at 11/07 0200 (Comment: bed is on alternate) -- at 11/07 0000 (Comment: bed is on alternate) Supine at 11/06 2200 (Comment: bed is on alternate) Supine at 11/07 1999 Bed placed in chair position at 11/06 0953 Bed placed in chair position at 11/06 0800 Supine at 11/06 0600 Right side at 11/06 0400 Supine at 11/06 0200 Left side at 11/05 2200 Supine at 11/06 1999 Positioning Frequency Every 2 hours at /05 0500 Every 2 hours at 11/08 0400 Every 2 hours at 11/08 0200 Every 2 hours at 11/08 0022 Every 2 hours at 11/07 2325 Every 2 hours at 11/07 2147 Every 2 hours at 11/07 1012 Every 2 hours at 11/07 0600 Every 2 hours at 11/07 0400 Every 2 hours at 11/07 0200 Every 2 hours at 11/07 0000 Every 2 hours at 11/06 2200 Every 2 hours at 11/06 2000 Every 2 hours at 11/06 0953 Every 2 hours at 11/06 0800 Every 2 hours at 11/06 0600 Every 2 hours at 11/06 0400 Every 2 hours at 11/06 0200 Every 2 hours at 11/05 2200 Every 2 hours at 11/06 1999 Head of Bed Elevated HOB less than 20 at 11/08 0500 HOB less than 20 at 11/08 0400 HOB less than 20 at 11/08 0200 HOB less than 20 at 11/07 2325 HOB less than 20 at 11/07 2147 HOB 45 at 11/07 1999 HOB 45 at 11/06 0953 HOB 45 at 11/06 08 HOB 30 at 11/05 2199 HOB 30 at 11/06 1999 Heels/Feet Bilateral heel protectors at 11/08 0500 Bilateral heel protectors at 11/08 0400 Bilateral heel protectors at 11/08 0200 Bilateral multi-podus boots at 11/07 2325 Bilateral multi-podus boots at 11/07 2146 Bilateral heel protectors at 11/07 1999 (Comment: Edgar boots) Heels elevated off bed at 11/06 0800 Bilateral heel protectors at 11/06 1999 (Comment: Edgar boots) , Meds and Admin Active Only All Meds/Most Recent Administrations acetaminophen (TYLENOL) tablet 650 mg [[id number]] Ordering Provider: Rachna Burt MD Status: Dispensed Ordered On: 10/24/172033 Start: 10/24/172004 Dose (Remaining/Total): 650 mg (--/--) Route: oral Frequency: Every 4 hours PRN Rate/Duration: -- / -- Timestamps Action Dose Route Other Information 06/03/18 1535 Given 650 mg oral Performed by: Eunice Cruz RN albuterol (PROVENTIL,VENTOLIN) 2.5 mg/0.5 mL nebulizer solution 5 mg [[id number]] Ordering Provider: Rachna Burt MD Status: Dispensed Ordered On: 10/24/172033 Start: 10/24/172004 Dose (Remaining/Total): 5 mg (--/--) Route: nebulization Frequency: Every 6 hours PRN Rate/Duration: -- / -- (No admins recorded for this medication) amiodarone (PACERONE) tablet 200 mg [[id number]] Ordering Provider: Rachna Burt MD Status: Dispensed Ordered On: 10/24/172033 Start: 10/24/172114 Dose (Remaining/Total): 200 mg (--/--) Route: oral Frequency: 2 times daily Rate/Duration: -- / -- Timestamps Action Dose Route Other Information 11/08/17852 Given 200 mg oral Performed by: Neena Jackson RN apixaban (ELIQUIS) tablet 5 mg [[id number]] Ordering Provider: Rachna Burt MD Status: Dispensed Ordered On: 10/24/172033 Start: 10/24/172114 Dose (Remaining/Total): 5 mg (--/--) Route: oral Frequency: 2 times daily Rate/Duration: -- / -- Admin Instructions: May crush and suspend in 60 ml of water, D5W, apple juice or apple sauce. If onheparin infusion, discontinue heparin infusion upon first administration of apixaban. Timestamps Action Dose Route Other Information 11/08/17852 Given 5 mg oral Performed by: Neena Jackson RN aspirin enteric coated tablet 81 mg [[id number]] Ordering Provider: Rachna Burt MD Status: Dispensed Ordered On: 10/24/172033 Start: 10/25/17899 Dose (Remaining/Total): 81 mg (--/--) Route: oral Frequency: Daily Rate/Duration: -- / -- Admin Instructions: Do not crush or chew Timestamps Action Dose Route Other Information 11/08/17852 Given 81 mg oral Performed by: Neena Jackson RN atorvastatin (LIPITOR) tablet 20 mg [[id number]] Ordering Provider: Rachna Burt MD Status: Dispensed Ordered On: 10/24/172033 Start: 10/25/17899 Dose (Remaining/Total): 20 mg (--/--) Route: oral Frequency: Daily Rate/Duration: -- / -- Timestamps Action Dose Route Other Information 11/08/1753 Given 20 mg oral Performed by: Neena Jackson RN chlorhexidine (PERIDEX) 0.12 % solution 5 mL [[id number]] Ordering Provider: Rachna Burt MD Status: Dispensed Ordered On: 10/24/172033 Start: 10/24/172114 Dose (Remaining/Total): 5 mL (--/--) Route: mouth/throat Frequency: 2 times daily Rate/Duration: -- / -- Timestamps Action Dose Route Other Information 11/08/1754 Given 5 mL mouth/throat Performed by: Neena Jackson RN metoprolol (LOPRESSOR) tablet 12.5 mg [[id number]] Ordering Provider: Rachna Burt MD Status: Dispensed Ordered On: 10/24/172033 Start: 10/24/172114 Dose (Remaining/Total): 12.5 mg (--/--) Route: oral Frequency: 2 times daily Rate/Duration: -- / -- Timestamps Action Dose Route Other Information 11/08/17852 Given 12.5 mg oral Performed by: Neena Jackson RN ondansetron (ZOFRAN) tablet 4 mg [[id number]] Ordering Provider: Rachna Burt MD Status: Dispensed Ordered On: 10/24/172033 Start: 10/24/172011 Dose (Remaining/Total): 4 mg (--/--) Route: oral Frequency: Every 4 hours PRN Rate/Duration: -- / -- Timestamps Action Dose Route Other Information 11/06/17 1645 Given 4 mg oral Performed by: Mila Gonzalez RN oxyCODONE (ROXICODONE) tablet 5 mg [[id number]] Ordering Provider: Rachna Burt MD Status: Dispensed Ordered On: 10/24/172033 Start: 10/24/172011 Dose (Remaining/Total): 5 mg (--/--) Route: oral Frequency: Every 4 hours PRN Rate/Duration: -- / -- Timestamps Action Dose Route Other Information 11/01/17 1313 Given 5 mg oral Performed by: Agustin Das RN oxyCODONE (ROXICODONE) tablet 10 mg [[id number]] Ordering Provider: Rachna Burt MD Status: Dispensed Ordered On: 10/24/172033 Start: 10/24/172012 Dose (Remaining/Total): 10 mg (--/--) Route: oral Frequency: Every 4 hours PRN Rate/Duration: -- / -- Admin Instructions: Do not crush or chew Timestamps Action Dose Route Other Information 11/08/17 0856 Given 10 mg oral Performed by: Neena Jackson RN pantoprazole DR (PROTONIX) extended release tablet 40 mg [[id number]] Ordering Provider: Rachna Burt MD Status: Dispensed Ordered On: 10/24/172033 Start: 10/25/17 09 Dose (Remaining/Total): 40 mg (--/--) Route: oral Frequency: Daily Rate/Duration: -- / -- Admin Instructions: Do not crush or chew Timestamps Action Dose Route Other Information 11/08/17 0853 Given 40 mg oral Performed by: Neena Jackson RN senna (SENOKOT) tablet 1 tablet [[id number]] Ordering Provider: Rachna Burt MD Status: Dispensed Ordered On: 10/24/172033 Start: 10/25/17 09 Dose (Remaining/Total): 1 tablet (--/--) Route: oral Frequency: Daily Rate/Duration: -- / -- Timestamps Action Dose Route Other Information 11/08/17 0853 Given 1 tablet oral Performed by: Neena Jackson RN tamsulosin (FLOMAX) extended release capsule 0.4 mg [[id number]] Ordering Provider: Rachna Burt MD Status: Dispensed Ordered On: 10/24/172033 Start: 10/24/172114 Dose (Remaining/Total): 0.4 mg (--/--) Route: oral Frequency: Nightly Rate/Duration: -- / -- Admin Instructions: Do not crush or chew Timestamps Action Dose Route Other Information 11/07/172146 Given 0.4 mg oral Performed by: Amanda Burnette RN zolpidem (AMBIEN) tablet 5 mg [[id number]] Ordering Provider: Rachna Burt MD Status: Dispensed Ordered On: 10/24/172033 Start: 10/24/172015 Dose (Remaining/Total): 5 mg (--/--) Route: oral Frequency: Nightly PRN Rate/Duration: -- / -- Timestamps Action Dose Route Other Information 11/07/172146 Given 5 mg oral Performed by: Amanda Burnette RN budesonide-formoterol (SYMBICORT) 80-4.5 mcg/actuation inhaler 1 puff [[id number]] Ordering Provider: Rachna Burt MD Status: Verified Ordered On: 10/24/172099 Start: 10/24/172144 Dose (Remaining/Total): 1 puff (--/--) Route: inhalation Frequency: 2 times daily (correspondent) Rate/Duration: -- / -- Admin Instructions: Rinse mouth with water after use to reduce aftertaste and incidence of candidiasis. Do not swallow. Timestamps Action Dose Route Other Information 11/08/17707 Given 1 puff inhalation Performed by: Germaine Fountain RRT dextrose (GLUTOSE) 40 % gel 15 g [[id number]] Ordering Provider: Jason Shore Jr., NP Status: Verified Ordered On: 10/24/172107 Start: 10/24/172057 Dose (Remaining/Total): 15 g (--/--) Route: oral Frequency: Every 15 min PRN Rate/Duration: -- / -- Admin Instructions: If patient is alert and able to eat/drink, give 15 gram glucose or one juice (4fluid ounces) NOT ORANGE JUICE [employer] STATES GLUTOSE-15 CONTAINS GLUCOSE 40% W/W (50% W/V) (No admins recorded for this medication) dextrose 50% (concentrated solution) CONCENTRATED solution 25 g [[id number]] Ordering Provider: Jason Shore Jr., OWNER/PHOTOGRAPHER Status: Verified Ordered On: 10/24/172107 Start: 10/24/172057 Dose (Remaining/Total): 25 g (--/--) Route: intravenous Frequency: Every 15 min PRN Rate/Duration: -- / -- Admin Instructions: If patient is NPO or unresponsive, give dextrose 50% IV Push over 2 minutes. (No admins recorded for this medication) glucagon injection 1 mg [[id number]] Ordering Provider: Jason Shore Jr. OWNER/PHOTOGRAPHER Status: Verified Ordered On: 10/24/172107 Start: 10/24/172057 Dose (Remaining/Total): 1 mg (--/--) Route: intramuscular Frequency: Every 30 min PRN Rate/Duration: -- / -- Admin Instructions: If patient has no IV access and not alert, given Glucagon IM then follow with either oral glucose or IV dextrose treatment. (No admins recorded for this medication) miconazole 2 % powder [[id number]] Ordering Provider: Rachna Burt MD Status: Dispensed Ordered On: 10/25/17617 Start: 10/25/17899 Dose (Remaining/Total): -- (--/--) Route: topical Frequency: 2 times daily Rate/Duration: -- / -- Question Answer Comment Apply to affected area:: other groin Timestamps Action Dose / Rate / Duration Route Other Information 11/08/17 0857 Given -- topical Performed by: Neena Jackson, RN zinc sulfate (ZINCATE) capsule 220 mg [[id number]] Ordering Provider: Rachna Burt MD Status: Dispensed Ordered On: 10/25/171034 Start: 10/25/171114 Dose (Remaining/Total): 220 mg (--/--) Route: oral Frequency: Daily Rate/Duration: -- / -- Timestamps Action Dose Route Other Information 11/08/17 0853 Given 220 mg oral Performed by: Neena Jackson, RN ascorbic acid (VITAMIN C) tablet/chewable tablet 500 mg [[id number]] Ordering Provider: Rachna Burt MD Status: Dispensed Ordered On: 10/25/171034 Start: 10/25/17 1115 Dose (Remaining/Total): 500 mg (--/--) Route: oral Frequency: 2 times daily Rate/Duration: -- / -- Timestamps Action Dose Route Other Information 11/08/17 0853 Given 500 mg oral Performed by: Neena Jackson RN collagenase 250 unit/gram ointment [[id number]] Ordering Provider: Rachna Burt MD Status: Dispensed Ordered On: 10/25/17 1659 Start: 10/25/17 1730 Dose (Remaining/Total): -- (--/--) Route: topical Frequency: Daily Rate/Duration: -- / -- Admin Instructions: Use with wet to dry dressing change to left mid back wound. Question Answer Comment Apply to affected area:: wound left mid back wound Timestamps Action Dose / Rate / Duration Route Other Information 11/08/17 0854 Given -- topical Performed by: Neena Jackson RN ergocalciferol (VITAMIN D) capsule 50,000 Units [[id number]] Ordering Provider: Adam Pastor MD Status: Dispensed Ordered On: 10/26/17 0657 Start: 10/26/17 0900 Dose (Remaining/Total): 50,000 Units (--/--) Route: oral Frequency: Weekly Rate/Duration: -- / -- Timestamps Action Dose Route Other Information 11/02/17 0719 Given 50,000 Units oral Performed by: Neetu Schmitt RN Comments: given before therapy bumetanide (BUMEX) tablet 0.5 mg [[id number]] Ordering Provider: Александр Espino Jr., MD Status: Dispensed Ordered On: 10/29/17 0730 Start: 10/29/17 0900 Dose (Remaining/Total): 0.5 mg (--/--) Route: oral Frequency: Daily Rate/Duration: -- / -- Timestamps Action Dose Route Other Information 11/08/17 0853 Given 0.5 mg oral Performed by: Neena Jackson RN docusate sodium (COLACE) capsule 100 mg [[id number]] Ordering Provider: Jason Shore Jr., NP Status: Dispensed Ordered On: 10/29/17 0738 Start: 10/29/17899 Dose (Remaining/Total): 100 mg (--/--) Route: oral Frequency: 2 times daily Rate/Duration: -- / -- Timestamps Action Dose Route Other Information 11/08/17852 Given 100 mg oral Performed by: Neena Jackson RN polyethylene glycol (MIRALAX) packet 17 g [[id number]] Ordering Provider: Jason Shore Jr., NP Status: Dispensed Ordered On: 10/29/17737 Start: 10/29/17735 Dose (Remaining/Total): 17 g (--/--) Route: oral Frequency: 2 times daily PRN Rate/Duration: -- / -- Timestamps Action Dose Route Other Information 11/05/172121 Given 17 g oral Performed by: Heather Salcedo RN bisacodyl EC (DULCOLAX EC) tablet 5 mg [[id number]] Ordering Provider: Jason Shore Jr., NP Status: Dispensed Ordered On: 10/29/17737 Start: 10/29/17736 Dose (Remaining/Total): 5 mg (--/--) Route: oral Frequency: 2 times daily PRN Rate/Duration: -- / -- Admin Instructions: Do not crush or chew Timestamps Action Dose Route Other Information 11/07/17 1012 Given 5 mg oral Performed by: Eunice Cruz RN bisacodyl (DULCOLAX) suppository 10 mg [[id number]] Ordering Provider: Jason Shore Jr., NP Status: Dispensed Ordered On: 10/29/17737 Start: 10/29/17736 Dose (Remaining/Total): 10 mg (--/--) Route: rectal Frequency: Daily PRN Rate/Duration: -- / -- Timestamps Action Dose Route Other Information 11/06/17 182 Given 10 mg rectal Performed by: Eunice Cruz RN lidocaine (LIDODERM) 5 % patch 1 patch [[id number]] Ordering Provider: Jason Shore Jr., NP Status: Dispensed Ordered On: 10/29/17737 Start: 10/29/17899 Dose (Remaining/Total): 1 patch (--/--) Route: transdermal Frequency: Daily Rate/Duration: -- / 12 Hours Admin Instructions: Do not cover the holes on the top side of the patch. Question Answer Comment Apply to affected area:: back -- Timestamps Action Dose / Duration Route / Site Other Information 11/08/1757 Medication Applied 1 patch 12 Hours transdermal Other (Comment) Performed by: Neena Jackson RN Comments: back ipratropium-albuterol (DUO-NEB) 0.5-2.5 mg/3 mL nebulizer solution 3 mL [[id number]] Ordering Provider: Rachna Burt MD Status: Verified Ordered On: 10/29/17 0956 Start: 10/29/17 1000 Dose (Remaining/Total): 3 mL (--/--) Route: nebulization Frequency: Every 4 hours PRN (correspondent) Rate/Duration: -- / -- (No admins recorded for this medication) diphenhydrAMINE (BENADRYL) tab/cap 25 mg [[id number]] Ordering Provider: Александр Espino Jr., MD Status: Dispensed Ordered On: 11/04/17827 Start: 11/04/17827 Dose (Remaining/Total): 25 mg (--/--) Route: oral Frequency: 4 times daily PRN Rate/Duration: -- / -- Timestamps Action Dose Route Other Information 11/07/172147 Given 25 mg oral Performed by: Amanda Burnette RN bacitracin 500 unit/gram ointment packet 1 application [[id number]] Ordering Provider: Nas De Oliveira DPM Status: Dispensed Ordered On: 11/05/17 1457 Start: 11/05/17 1530 Dose (Remaining/Total): 1 application (--/--) Route: topical Frequency: Daily Rate/Duration: -- / -- Admin Instructions: Apply to bilateral third toes(distal) and left great toe wounds and cover with bandaid x 1 week or until healed. Question Answer Comment Apply to affected area:: foot -- Laterality: Bilateral -- Timestamps Action Dose Route Other Information 11/08/1757 Given 1 application topical Performed by: Neena Jackson RN camphor-menthol (SARNA) 0.5-0.5 % lotion [[id number]] Ordering Provider: Rachna Burt MD Status: Dispensed Ordered On: 11/07/17 0900 Start: 11/07/17 0859 Dose (Remaining/Total): -- (--/--) Route: topical Frequency: As needed Rate/Duration: -- / -- Question Answer Comment Apply to affected area:: other dry skin Timestamps Action Dose / Rate / Duration Route Other Information 11/07/17 215 Given -- topical Performed by: Amanda Burnette RN baclofen (LIORESAL) tablet 10 mg [[id number]] Ordering Provider: Rachna Burt MD Status: Dispensed Ordered On: 11/07/17 1005 Start: 11/07/17 1200 Dose (Remaining/Total): 10 mg (--/--) Route: oral Frequency: 3 times daily with meals Rate/Duration: -- / -- Timestamps Action Dose Route Other Information 11/08/17 0854 Given 10 mg oral Performed by: Neena Jackson RN , Wound Info Only Patient Lines/Drains/Airways Status Active Wound / Pressure ulcer / Slaughter / Negative Pressure Wound Wound 10/24/17 MASD (Moisture associated skin damage) Buttocks Bilateral MASD to buttocks; Redness to groin Date First Assessed 10/24/17 Site: Buttocks Time First Assessed 1999 Days: 14 Location Orientation: Bilateral Wound Description (Comments): MASD to buttocks; Redness to groin Wound Type: MASD (Moisture associated skin damage) Present on Hospital Admission: Yes Assessments 11/08/1789911/07/17214611/07/17 1015 Wound Status Healing Healing Healing Site Assessment [place] Crafton [place] Mandy-wound Assessment Blanchable erythema;Fragile Blanchable erythema;Excoriated;Fragile Drainage Amount None Interventions Topical barrier cream;Cleansed Topical barrier cream Dressing Status Open to Air Wound 10/24/17 Open wound Back Left;Medial Back Wound- dehisced Date First Assessed 10/24/17 Site: Back Time First Assessed 1999 Days: 14 Location Orientation: Left;Medial Wound Description (Comments): Back Wound- dehisced Wound Type: Open wound Present on Hospital Admission: Yes Assessments 11/08/17 0911/07/1711/07/18 1015 Wound Status Healing Healing Healing Site Assessment Painful;Slough/fibrin Margins Defined edges Mandy-wound Assessment Fragile Closure Unapproximated Interventions Cleansed;Pharmacological (see MAR) Dressing Status Changed Changed Dressing Hydrocolloid;Moist to dry;Gauze Wound 10/29/17 Skin tear Arm Left 1cm Date First Assessed 10/29/17 Site: Arm Time First Assessed 2100 Days: 9 Location Orientation: Left Wound Description (Comments): 1cm Wound Type: Skin tear Present on Hospital Admission: No Assessments 11/08/17 0900 11/07/17 21411/07/17 1015 Wound Status Healing Healing Site Assessment Intact;Clean Mandy-wound Assessment Scabbed Dressing Status Clean/Dry/Intact Changed Dressing Gauze rolled Vaseline gauze;Gauze Wound 10/29/17 Abrasion(s) Groin Left Date First Assessed 10/29/17 Site: Groin Time First Assessed 2100 Days: 9 Location Orientation: Left Wound Type: Abrasion(s) Assessments 11/08/17 0911/07/17214611/07/17 1015 Wound Status Healing Healing Healing Site Assessment Intact;[place] Mandy-wound Assessment Color normal for ethnicity Dressing Status Changed Dressing Hydrocolloid;Gauze Wound 11/04/17 Skin tear Arm Right Date First Assessed 11/04/17 Site: Arm Time First Assessed 1641 Days: 3 Location Orientation: Right Wound Type: Skin tear Present on Hospital Admission: No Assessments 11/08/17 0911/07/17214611/07/17 1015 Wound Status Healing Healing Site Assessment Clean;Dry;Intact Clean;Dry;Intact;[place] Drainage Amount Scant Drainage Description Serosanguineous Dressing Status Clean/Dry/Intact Changed Dressing Gauze rolled Wound gel;Vaseline gauze;Gauze * Plan of Jesus Manuel - Josefa Hardwick OT - 11/08/2017 7:43 AM CDT Problem: OT Misc Goal: LTG - Misc 1 Pt to dress modified IND Outcome: Progressing Goal: LTG - Misc 2 Pt to groom modified IND Outcome: Progressing Goal: LTG - Misc 3 Pt to bathe with transfer modified IND Outcome: Progressing Goal: LTG - Misc 4 Pt to toilet with transfer modified IND Outcome: Progressing Goal: LTG - Mis 5 Pt to complete UE HEP with IND to promote IND with self care and functional transfers Outcome: Progressing Problem: Cognitive: Goal: STG - Misc 1 Patient will execute multiple elements of a task with supervision Outcome: Progressing * Plan of Care - Amanda Burnette RN - 11/08/2017 3:43 AM CDT Goals: Clinical Goals for the Shift: work with therapy, free from falls Summary: Patient comfortably sleeping in bed. Turn q2hr. No distress noted. Activity: ??? Mobility will improve Progressing Bladder/Voiding ??? LTG - Patient will achieve acceptable level of continence Progressing ??? STG - Patient demonstrates no accidents Progressing Bowel Elimination ??? LTG - Patient will have regular and routine bowel evacuation Progressing ??? LTG - Patient will complete bowel elimination Progressing ??? STG - Patient maintains skin integrity Progressing ??? STG - Patient will verbalize signs and symptoms of constipation and how to prevent/alleviate Progressing ??? STG - Patient will be continent of stool Progressing ??? STG - Patient verbalizes knowledge about relationship between diet, fluid intake, activity and medication on constipation Progressing Health Behavior: ??? Understanding of discharge needs will improve Progressing Lack of Knowledge: ??? Ability to state ways to decrease the risk of falls will improve Progressing Lack of Knowledge: ??? Understanding of ways to prevent future skin breakdown will improve Progressing ??? Ability to identify appropriate dietary choices will improve Progressing Nutritional: ??? Dietary intake will improve Progressing ??? Ability to maintain a balanced intake and output will improve Progressing Safety: ??? Will remain free from falls Progressing ??? Will remain free from injury from falls Progressing ??? Will remain free from falls and injury in home environment Progressing Skin Integrity: ??? Risk for impaired skin integrity will decrease Progressing ??? Ability to demonstrate warm and dry skin will improve Progressing ??? Circulation will improve to fullest extent possible Progressing * Plan of Care - Eunice Cruz RN - 11/07/2017 5:11 PM CDT Activity: ??? Mobility will improve Progressing Bladder/Voiding ??? LTG - Patient will achieve acceptable level of continence Progressing ??? STG - Patient demonstrates no accidents Progressing Bowel Elimination ??? LTG - Patient will have regular and routine bowel evacuation Progressing ??? LTG - Patient will complete bowel elimination Progressing ??? STG - Patient maintains skin integrity Progressing ??? STG - Patient will verbalize signs and symptoms of constipation and how to prevent/alleviate Progressing ??? STG - Patient will be continent of stool Progressing ??? STG - Patient verbalizes knowledge about relationship between diet, fluid intake, activity and medication on constipation Progressing Health Behavior: ??? Understanding of discharge needs will improve Progressing Lack of Knowledge: ??? Ability to state ways to decrease the risk of falls will improve Progressing Lack of Knowledge: ??? Understanding of ways to prevent future skin breakdown will improve Progressing ??? Ability to identify appropriate dietary choices will improve Progressing Nutritional: ??? Dietary intake will improve Progressing ??? Ability to maintain a balanced intake and output will improve Progressing Safety: ??? Will remain free from falls Progressing ??? Will remain free from injury from falls Progressing ??? Will remain free from falls and injury in home environment Progressing Skin Integrity: ??? Risk for impaired skin integrity will decrease Progressing ??? Ability to demonstrate warm and dry skin will improve Progressing ??? Circulation will improve to fullest extent possible Progressing Goals: Clinical Goals for the Shift: work with therapy, free from falls Summary: Patient remains free from falls. Turning q2 when in bed. Sarna lotion helping itchiness. Pain remains controlled. present. Up in bed eating dinner. No complaints at this time. Eunice Cruz, RN * Plan of Care - Cleo Lorenzo OT - 11/07/2017 2:45 PM CDT Problem: OT Misc Goal: LTG - Misc 1 Pt to dress modified IND Outcome: Progressing Goal: LTG - Misc 2 Pt to groom modified IND Outcome: Progressing Goal: LTG - Misc 3 Pt to bathe with transfer modified IND Outcome: Progressing Goal: LTG - Misc 4 Pt to toilet with transfer modified IND Outcome: Progressing Goal: LTG - Misc 5 Pt to complete UE HEP with IND to promote IND with self care and functional transfers Outcome: Progressing * Plan of Care - Kateryna Lunsford PT - 11/07/2017 12:40 PM CDT Problem: PT Misc Goal: LTG - Misc 1 Pt will roll SARAH and supine<-->sit EOB with supervision and bedrails as needed. Pt will sit<-->stand with minimum assist and appropriate assistive device. Pt will transfer bed<-->wheelchair/chair with minimum assist and appropriate assistive device. Outcome: Progressing Goal: LTG - Misc 2 Pt will ambulate 150' w/ minimum assist and appropriate assistive device. Pt will ambulate up/down 4 stairs with mod assist and SARAH rails. Outcome: Not Progressing Goal: LTG - Mis 4 Pt will complete SARAH LE HEP x15 reps with supervision. Outcome: Progressing Goal: LTG - Mis 5 Pt and/or family will verbalize and demonstrate understanding of pt's safety and mobility needs upon discharge. Outcome: Progressing * Plan of Care - Jackie Ku PT - 11/06/2017 3:31 PM CDT Problem: PT Misc Goal: LTG - Misc 1 Pt will roll SARAH and supine<-->sit EOB with supervision and bedrails as needed. Pt will sit<-->stand with minimum assist and appropriate assistive device. Pt will transfer bed<-->wheelchair/chair with minimum assist and appropriate assistive device. Outcome: Progressing Goal: LTG - Misc 2 Pt will ambulate 150' w/ minimum assist and appropriate assistive device. Pt will ambulate up/down 4 stairs with mod assist and SARAH rails. Outcome: Progressing Goal: LTG - Misc 3 Pt will propel WC 150' with supervision and extra time. Outcome: Progressing Goal: LTG - Mis 4 Pt will complete SARAH LE HEP x15 reps with supervision. Outcome: Progressing Goal: LTG - Mis 5 Pt and/or family will verbalize and demonstrate understanding of pt's safety and mobility needs upon discharge. Outcome: Progressing * Plan of Care - Eunice Cruz RN - 11/06/2017 3:31 PM CDT Activity: ??? Mobility will improve Progressing Bladder/Voiding ??? LTG - Patient will achieve acceptable level of continence Progressing ??? STG - Patient demonstrates no accidents Progressing Bowel Elimination ??? LTG - Patient will have regular and routine bowel evacuation Progressing ??? LTG - Patient will complete bowel elimination Progressing ??? STG - Patient maintains skin integrity Progressing ??? STG - Patient will verbalize signs and symptoms of constipation and how to prevent/alleviate Progressing ??? STG - Patient will be continent of stool Progressing ??? STG - Patient verbalizes knowledge about relationship between diet, fluid intake, activity and medication on constipation Progressing Health Behavior: ??? Understanding of discharge needs will improve Progressing Lack of Knowledge: ??? Ability to state ways to decrease the risk of falls will improve Progressing Lack of Knowledge: ??? Understanding of ways to prevent future skin breakdown will improve Progressing ??? Ability to identify appropriate dietary choices will improve Progressing Nutritional: ??? Dietary intake will improve Progressing ??? Ability to maintain a balanced intake and output will improve Progressing Safety: ??? Will remain free from falls Progressing ??? Will remain free from injury from falls Progressing ??? Will remain free from falls and injury in home environment Progressing Skin Integrity: ??? Risk for impaired skin integrity will decrease Progressing ??? Ability to demonstrate warm and dry skin will improve Progressing ??? Circulation will improve to fullest extent possible Progressing Goals: Clinical Goals for the Shift: remain free from falls, control pain, work with therapy Summary: Patient remains free from falls. Worked with therapy today. Turning q2 when in bed. Pain remains controlled. Continent with assistance with urinal. No other complaints at this time. Eunice Nancy, RN * Plan of Care - Nora Rosenbaum OT - 11/06/2017 3:03 PM CDT Problem: OT Misc Goal: LTG - Misc 1 Pt to dress modified IND Outcome: Progressing Goal: LTG - Misc 2 Pt to groom modified IND Outcome: Progressing Goal: LTG - Misc 3 Pt to bathe with transfer modified IND Outcome: Progressing Goal: LTG - Misc 4 Pt to toilet with transfer modified IND Outcome: Progressing Goal: LTG - Misc 5 Pt to complete UE HEP with IND to promote IND with self care and functional transfers Outcome: Progressing * Plan of Care - Heather Salcedo RN - 11/06/2017 4:57 AM CDT Goals: Clinical Goals for the Shift: remain free from falls Summary: * Plan of Care - Dayan Perez MT-BC - 11/05/2017 9:22 AM CDT Problem: Cognitive: Goal: STG - Misc 1 Patient will execute multiple elements of a task with supervision Outcome: Progressing Supervision to modified IND Goal: STG - Misc 2 Patient will increase problem solving to complete tasks at 90% or with supervision Outcome: Progressing 80% to solve open equalities, 60% to solve true/false equalities Problem: Physical Regulation: Goal: STG - Misc 3 Patient will increase general strength/coordination through various exercises with supervision until disch Outcome: Progressing Continue until disch Problem: Respiratory: Goal: STG - Misc 4 Patient will maintain/increase SPO2 by 1% in at least one session prior to disch Outcome: Progressing Goal met by 11/05/17, but continue until disch Goal: STG - Misc 5 Patient will increase pulmonary function through various exercises with supervision until disch Outcome: Progressing Continue until disch Comments: MUSIC THERAPY WEEKLY GOAL UPDATE Working on pulmonary exercises to increase SPO2, multitask exercise/instrument playing: supervision(impulsivity) - modified IND, abstract problem solvin% open equalities, 60% true/false equalities (minimal cues overall), working to increase general strength/endurance; barriers: SOB, general deconditioning * Plan of Care - Kateryna Lunsford, PT - 11/04/2017 8:42 PM CDT Problem: PT Misc Goal: LTG - Misc 1 Pt will roll SARAH and supine<-->sit EOB with supervision and bedrails as needed. Pt will sit<-->stand with minimum assist and appropriate assistive device. Pt will transfer bed<-->wheelchair/chair with minimum assist and appropriate assistive device. Outcome: Progressing Goal: LTG - Misc 2 Pt will ambulate 150' w/ minimum assist and appropriate assistive device. Pt will ambulate up/down 4 stairs with mod assist and SARAH rails. Outcome: Not Progressing Goal: LTG - Misc 3 Pt will propel WC 150' with supervision and extra time. Outcome: Progressing Goal: LTG - Misc 4 Pt will complete SARAH LE HEP x15 reps with supervision. Outcome: Progressing Goal: LTG - Misc 5 Pt and/or family will verbalize and demonstrate understanding of pt's safety and mobility needs upon discharge. Outcome: Progressing * Plan of Care - Brenden Pathak LCSW - 11/04/2017 2:29 PM CDT Pt provided with list of snf units in the area for review. [place] will assess pt closer to discharge date. * Plan of Care - Destiny Burnette COTA - 11/04/2017 11:36 AM CDT Problem: OT Misc Goal: LTG - Misc 1 Pt to dress modified IND Outcome: Progressing Goal: LTG - Misc 2 Pt to groom modified IND Outcome: Progressing Goal: LTG - Misc 3 Pt to bathe with transfer modified IND Outcome: Progressing Goal: LTG - Misc 4 Pt to toilet with transfer modified IND Outcome: Progressing Goal: LTG - Misc 5 Pt to complete UE HEP with IND to promote IND with self care and functional transfers Outcome: Progressing Problem: Cognitive: Goal: STG - Misc 1 Patient will execute multiple elements of a task with supervision Outcome: Progressing * Plan of Care - Yesenia Ruby RN - 11/04/2017 9:44 AM CDT Activity: ??? Mobility will improve Progressing Bladder/Voiding ??? LTG - Patient will achieve acceptable level of continence Progressing ??? STG - Patient demonstrates no accidents Progressing Bowel Elimination ??? LTG - Patient will have regular and routine bowel evacuation Progressing ??? LTG - Patient will complete bowel elimination Progressing ??? STG - Patient maintains skin integrity Progressing ??? STG - Patient will verbalize signs and symptoms of constipation and how to prevent/alleviate Progressing ??? STG - Patient will be continent of stool Progressing ??? STG - Patient verbalizes knowledge about relationship between diet, fluid intake, activity and medication on constipation Progressing Health Behavior: ??? Understanding of discharge needs will improve Progressing Lack of Knowledge: ??? Ability to state ways to decrease the risk of falls will improve Progressing Lack of Knowledge: ??? Understanding of ways to prevent future skin breakdown will improve Progressing ??? Ability to identify appropriate dietary choices will improve Progressing Nutritional: ??? Dietary intake will improve Progressing ??? Ability to maintain a balanced intake and output will improve Progressing Safety: ??? Will remain free from falls Progressing ??? Will remain free from injury from falls Progressing ??? Will remain free from falls and injury in home environment Progressing Skin Integrity: ??? Risk for impaired skin integrity will decrease Progressing ??? Ability to demonstrate warm and dry skin will improve Progressing ??? Circulation will improve to fullest extent possible Progressing Goals: Clinical Goals for the Shift: Patient's pain will be under control Summary: Observed the patients condition for changes. Monitor labs, vital signs, and I/O Will continue to monitor and assess. * ECIN Note - Brenden Pathak, HEEL SPLITTER - 11/04/2017 7:16 AM CDT Patient Information: OT Eval and Treat Last 72 Hours OT Evaluation No documentation. OT Treatment Row Name 11/03/17 1400 11/03/17 0900 11/02/17 0800 11/01/17 0800 Session Type Treatment Treatment Treatment Treatment OT Received On 11/03/17 11/03/17 11/02/17 11/01/17 Family/Caregiver Present -- No -- -- OT Functional Mobility Pt. completes supine to sit max assist and 2 person DEP for sit to stand with manual stand aid. Pt able to assist slightly more when pulling self up in manual sit to stand thisdate -- Pt. completes supine to sit max assist and 2 person DEP for sit to stand with manual stand aid. Pt able to assist slightly more when pulling self up in manual sit to stand this date Pt. completes supine to sit max assist and 2 person DEP for sit to stand with manual stand aid. Pt able to assist slightly more when pulling self up in manual sit to stand this date OT Self Care DEP to minimal assist for self care with 1 to 2 people. Pt using rolling shower chair with sarah supports and manual stand aid 2 person with LE dressing. Pt demonstrates general decreased balance, endurance, strength and sensation. Pt will benefit from continued skilled OT to promote INDtoward goals. Pt. vomiting this AM and RN notified. -- DEP to minimal assist for self care with 1 to 2 people. Pt using rolling shower chair with sarah supports and manual stand aid 2 person with LE dressing. Pt demonstrates general decreased balance, endurance, strength and sensation. Pt will benefit from continued skilled OT to promote IND toward goals. Pt. vomiting this AM and RN notified. DEP to minimal assist for self care with 1 to 2 people. Pt using rolling shower chair with sarah supports and manual stand aid 2 person with LE dressing. Pt demonstrates general decreased balance, endurance, strength and sensation. Pt will benefit from continued skilled OT to promote IND toward goals. OT Cognition Appears WNL -- Appears WNL Appears WNL OT Communication decreased vocal strength at times. -- decreased vocal strength at times. decreasedvocal strength at times. Precautions Bed/Chair Alarm Fall risk Bed/Chair Alarm;Aspiration;Fall risk Bed/Chair Alarm;Aspiration;Fall risk Pain Assessment -- 0-10 -- -- Pain Score -- 6 5 - Moderate pain 5 - Moderate pain Patient's Stated Pain Goal 4 -- -- -- Pain Location Back (Lumbar) Back (Lumbar) Back (Lumbar) Back (Lumbar) Clinical Progression Not changed Not changed Not changed 10/13 Not changed 10/13 Pain Interventions RN Notified RN Notified RN Notified RN Notified Grooming: Where assessed -- -- -- Sitting at sink Grooming: Level of assistance -- -- -- Set up Bathing: Where assessed -- -- -- Sitting;Shower rolling shower chair with sarah supports Bathing: Level of assistance -- -- -- Moderate;Maximal Bathing: Assistance with -- -- -- Buttocks;Perineal area;Left upper leg;Right upper leg;Left lower leg including foot;Right lower leg including foot UE Dressing: Level of assistance -- -- -- Stand by LE Dressing: Level of assistance -- -- -- Total LE Dressing: Assistance with -- -- -- -- total, 2nd person assist LE Dressing: Equipment Utilized -- -- -- Dressing stick manual sit to stand Toileting: Assistance with -- -- -- -- incontinent of bowel Transfer From 1 Wheelchair -- -- Bed Transfer Type 1 To and from -- -- To Transfer to 1 Mat -- -- Wheelchair Technique 1 Lateral with transfer board -- -- Squat pivot Transfer Device 1 -- slide board -- -- -- manual sit to stand, max of 1, mod of 1 Transfer Level of Assistance 1 Maximum assistance -- -- -- Trials/Comments 1 -- -- EOM to WC minimal assist with SLB -- -- Trials/Comments 2 -- -- -- garrett transfer 2 person from standing frame to bed Toilet Transfers Comments -- -- -- Pivot to rolling chair with opening max ov 1, mod of 1 (DEP) Shower Transfers Comments -- -- -- DEP, rolling shower chair ROM/STRENGTH -- -- Bilateral UE exercises 3# 15 reps all planes -- -- Fine Motor -- -- Resistive peg board activity -- -- UE Ergometer -- 10 minutes 6 min, mod resistance -- Rickshaw -- 30# 15 reps x3 -- -- Shoulder Arch -- -- crossing midline, either UE, seated while wearing 1/2lb wrist weights to challenge UE strength and ROM. Pt requires rest breaks due to fatigue. LUE more difficult than Right due to rotator cuff injury -- Other Exercise Tool 1 Core strengthening with 2lb weighted ball, unsupported on Edge of mat, Rest breaks required. -- sarah yady, mod incline, 6lb, 20x2 Dumbbells, 2lb, 20x2; sarah shoulder shrugs 20x with 2 second hold. Other Exercise Tool 2 -- -- Dumbbells, 2lb, 20 bicep curls -- Other Exercise Tool 3 -- -- Pt using either UE to complete targeting/reaching activity with small dominos to challenge UE ROM. Rest breaks required -- Additional Activities -- -- Batted balloon 20 reps x3 with 3# dowel -- -- Additional Activities Comments -- -- pt. complete large peg board activity on incline to challenge shoulder ROM and pinch strength. Pt completes activity with minimal difficulty and increased time. Rest breaks required due to shoulder fatigue. Pt in standing frame and completes UE reaching activitywith clothes pins to challege UE strength, pinch strenth and ancourage core strength. Pt requries 3seated breaks due to fatigue in back and knees. Left shoulder ROM limited from previous injury. Prognosis -- Good -- -- Problem List Decreased ADLs;Decreased upper extremity strength;Decreased endurance;Decreased fine motor control;Decreased functional mobility;Decreased IADLs;Pain;Skin integrity -- Decreased ADLs;Decreased upper extremity strength;Decreased endurance;Decreased fine motor control;Decreased functional mobility;Decreased IADLs;Pain;Skin integrity Decreased ADLs;Decreased upper extremity strength;Decreased endurance;Decreased fine motor control;Decreased functional mobility;Decreased IADLs;Pain;Skin integrity Plan Continue with current plan Continue with current plan Continue with current plan Continue withcurrent plan Progress Progressing toward goals Progressing toward goals Progressing toward goals Progressing toward goals OT Notes (Notes from 11/02/17 through 11/04/17) No notes of this type exist for this encounter. , PT Eval and Treat Last 72 Hours PT Evaluation No documentation. PT TREATMENT (last 72 hours) PT Treatment Row Name 11/03/17 2140 11/03/17 2130 11/03/17 2030 11/03/17 1923 11/03/17 1622 Precautions Precautions -- -- Fall risk -- -- Pain Assessment Pain Assessment 0-10 -- -- -- 0-10 Pain Score 4 -- -- 6 5 - Moderate pain Patient's Stated Pain Goal No pain -- -- -- -- Pain Type Chronic pain -- -- -- -- Pain Location Back (Lumbar) -- -- -- -- Pain Interventions -- -- -- -- Warm moist pack Cognition Orientation Level -- Oriented X4 -- -- -- Row Name 11/03/17 1522 11/03/17 1400 11/03/17 1000 11/03/17 0900 11/03/17 0826 PT Last Visit Session Type -- Treatment -- Treatment -- Precautions Precautions -- Bed/Chair Alarm Fall risk Fall risk -- Pain Assessment Pain Assessment -- -- -- 0-10 0-10 Pain Score 7 -- -- 6 5 - Moderate pain Patient's Stated Pain Goal -- 4 -- -- -- Pain Location -- Back (Lumbar) -- Back (Lumbar) Back (Lumbar) Clinical Progression -- Not changed -- Not changed -- Pain Interventions -- RN Notified -- RN Notified -- Transfer 1 Transfer From 1 -- Wheelchair -- -- -- Transfer Type 1 -- To and from -- -- -- Transfer to 1 -- Mat -- -- -- Technique 1 -- Lateral with transfer board -- -- -- Transfer Device 1 -- -- slide board -- -- -- Transfer Level of Assistance 1 -- Maximum assistance -- -- -- Trials/Comments 1 -- -- -- -- EOM to WC minimal assist with SLB -- Row Name 11/03/17 0805 11/03/17 0750 11/03/17 0726 11/02/17 2300 11/02/17 2200 PT Last Visit Session Type Treatment -- -- -- -- Current Functional Status PT Functional Mobility Pt propels WC 80' + 150' w/ supervision and much extra time on the unit, transfers WC<-->mat with minimum to mod assist via slide board to right side both times, seated SARAH LE and SARAH UE + trunk rotation exercises performed during co-treatment with music therapist. PM: sit<-->stand x5 reps in // bars with max assist x2 and SARAH UE support needing significant seated rest breaks between attempts and pt fatiguing quickly - longest stand was approximately 50-55 seconds and PT blocked SARAH knees, WC-->bed transfer with total assist x2 via garrett lift, rolls SARAH w/ mod assist and bedrails, etc. Pt's slide board transfers in AM session have greatly improved, pt able to better assist with scooting and better manages scooting into position in the WC. Pt toleratedseated UE and LE exercises well with music therapy, and also worked on breathing techniques w/ music therapist during rest breaks to improve endurance and maintain O2 sats, which were WNL throughout session. Pt's WC mobility and sit<-->stand training remains unchanged from yesterday's session. Pt was very fatigued in PM during sit<-->stand and left side remain weak and erwin/gives out at times, needing knee to be blocked and max assist at posterior hips to promote hip and back extension to stand upright. Pt continues to require 2- person assist for safety with standing and transfers, and is progressing slowly towards goals. Pt's increased pain and muscle spasms in back and SARAH legs are significant barriers to progress at this time. RN and aware. Continue per plan of care. -- -- -- -- Precautions Precautions Bed/Chair Alarm;Fall risk Fall risk -- Fall risk -- Pain Assessment Pain Assessment 0-10 -- 0-10 Sleeping 0-10 Pain Score 6 -- 7 0 - No pain 5 - Moderate pain Pain Type Acute pain -- -- -- Chronic pain Pain Location Back (Lumbar) -- Back (Lumbar) -- Back (Lumbar) Pain Orientation Lower;Mid -- -- -- Lower;Mid Pain Radiating Towards SARAH LEs/thighs -- -- -- BLEs Pain Descriptors Cramping;Aching;Sore;Radiating;Spasm -- Aching -- Aching;Cramping Pain Frequency Frequently -- -- -- -- Pain Onset Ongoing -- -- -- -- Clinical Progression Gradually worsening 7/10 LBP at end of PM session, pain meds given. -- -- -- -- Pain Interventions Repositioned;Emotional support;RN Notified;Rest;Medication (See AUG) Premedicated in AM; pain meds given in PM session -- Medication (See AUG) -- Medication (See AUG);Repositioned Cognition Overall Cognitive Status WFL -- -- -- -- Orientation Level Oriented X4 -- -- -- Oriented X4 Seated Seated-Exercises Lower extremity;Upper extremity -- -- -- -- Equipment Other (Comment) drum batons -- -- -- -- Seated-Motion AROM -- -- -- -- Seated-Exercise Comments 1) LAQs SARAH LE 3 sets x20 reps while kicking drums to beat of music. 2) ptperforming trunk rotation while reaching across midline w/ each UE to hit a drum, using right batonto hit left drum, and left baton to hit right drum - SARAH UE 2 sets x20. 3) one baton clasped by both hands, pt rotated side to side to hit drums to beat of music, 2 sets x20 reps. 4) pt attempted sit<-->stand with mod-max assist x1 from elevated mat up to the activity table for UE support, but pt unable to maintain upright stance. -- -- -- -- Other Activities Other Activities Other (Comment) sit<-->stand training -- -- -- -- Other Activities Comments sit<-->stand x5 reps in // bars with max assist x2 and SARAH UE support -- -- -- -- Bed Mobility 1 Bed Mobility Comments 1 rolls SARAH with mod assist and SARAH bedrails in hospital bed -- -- -- -- Transfer 1 Trials/Comments 1 WC<-->mat with minimum to mod assist to right side both times - via slide board, WC-->hospital bed with total assist x2 via garrett lift -- -- -- -- Wheelchair Activities Wheelchair Type Recliner -- -- -- -- Wheelchair Cushion Pressure relieving -- -- -- -- Pressure Relief Type Tilt back manual -- -- -- -- Level of Assistance for Pressure Relief Activities Maximum assistance -- -- -- -- Propulsion Yes -- -- -- -- Propulsion Type 1 Manual -- -- -- -- Level 1 Level tile -- -- -- -- Method 1 Bilateral upper extremity -- -- -- -- Level of Assistance 1 Close supervision;Minimal verbal cues -- -- -- -- Distance (ft) 80', 150' -- -- -- -- Ambulation Ambulation No -- -- -- -- Stairs Stairs No -- -- -- -- Assessment Potential/Prognosis Good -- -- -- -- Recommendation/Plan PT Recommendation/Plan -- Pending pt progress. -- -- -- -- Treatment/Interventions -- Continue per plan of care. -- -- -- -- PT Equipment Recommended -- further assessment required pending pt progress -- -- -- -- Row Name 11/02/17199911/02/17 1752 11/02/17 1220 11/02/17 1120 11/02/17 0905 PT Last Visit Session Type -- -- -- -- Treatment Current Functional Status PT Functional Mobility -- -- -- -- Sit<-->stand x5 reps in // bars with max assit x2 and SARAH UE support with longest stand lasting 47 seconds and long rest breaks needed between standing attempts, WC-->mat with max assist x1 via slide board, seated hamstring stretches, sit-->supine withmod assist for SARAH LEs, seated SARAH LE exercises and stretches in supine on mat, supine-->sit with max assist, mat-->WC with max assist x1 for right sided slide board transfer, etc. Pt reports much increased pain and back/leg muscle spasms today, which are not only palpable but very visible during attempt to perform supine LE exercises. OT states pt recently vomited and didn't keep down someof his morning meds, but RN states despite this pt can't get any more muscle spasm or pain medicinedespite pt's complaints. PT requested a heating pad and muscle rub cream (per pt's request as he uses Icy Hot at home) for intermittent pain relief, and pt may also benefit from TENS unit as needed. Due to nausea, vomiting, significant pain, and lack of abdominal binder to protect PEG tube (being delivered later today), PT decided not to initiate LiteGait training today due to poor pt tolerance. PT will attempt LiteGait another session when pt is feeling better. Pt w/ poor tolerance of PT session today, w/ shorter standing times and unable to tolerate as many stretches and LE exercises. 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 This weak left LE significantly limits his standing ability, as pt needs max assit to block both knees when attempting to stand, and left knee gives out first and can't maintain pt in standing. Pt's bed mobility is slightly improved since last session, but transfers remain unchanged. Continue per plan of care. Precautions Precautions Fall risk -- -- -- Bed/Chair Alarm;Fall risk Pain Assessment Pain Assessment -- 0-10 0-10 0-10 0-10 Pain Score -- 7 7 9 7 Patient's Stated Pain Goal -- No pain No pain No pain -- Pain Type -- Chronic pain Chronic pain Chronic pain Acute pain Pain Location -- Back (Lumbar) Back (Lumbar) Back (Lumbar) bilateral legs Back (Lumbar) Pain Orientation -- -- -- -- Mid;Lower;Generalized Pain Radiating Towards -- -- -- -- SARAH LEs/thighs Pain Descriptors -- -- -- -- Aching;Cramping;Spasm Pain Frequency -- -- -- -- Intermittent Pain Onset -- -- -- -- Progressive Clinical Progression -- -- -- -- Gradually worsening Pt's pain is 9/10 by end of PT session. RN notified. Effect of Pain on Daily Activities -- -- -- -- Pt unable to tolerate LE exercises, stretches, or sitting edge of mat due to intense low back and SARAH LE muscle spasms + increased pain. Pain Interventions -- Medication (See MAR) Repositioned Medication (See MAR) Repositioned;Emotionalsupport;Massage;RN Notified;Other (Comment) PT requested order for heating pad + muscle rub cream Cognition Overall Cognitive Status -- -- -- -- WFL Orientation Level -- -- -- -- Oriented X4 Supine Supine-Exercises -- -- -- -- Bilateral;Lower extremity Reps/Sets -- -- -- -- SARAH LE x15 Supine-Motion -- -- -- -- AROM;PROM;AAROM;Prolonged stretch Supine-Exercise Comments -- -- -- -- ankle pumps, SAQs, AAROM heel slides, PROM hip abduction (right LE only), attempted [id number] stretch to decreased low back spasms and stretch glutes but pt unable to tolerate due to increased pain despite minimal ROM attempted, etc. Pt needed several rest breaks due to pain and back/SARAH LE spasms, but also couldn't tolerate sitting edge of mat for very long. Seated Seated-Exercises -- -- -- -- Lower extremity Reps/Sets -- -- -- -- SARAH LE x4 Seated-Motion -- -- -- -- Prolonged stretch Seated-Exercise Comments -- -- -- -- PT performed passive hamstring stretches x20 seconds each, BILLE x4 within pt's tolerance while seated edge of mat. Other Activities Other Activities -- -- -- -- Other (Comment) sit<-->stand training in // bars Other Activities Comments -- -- -- -- sit<-->stand x5 reps in // bars with max assist x2 and SARAH UE support (45 sec, 50 sec, 35 sec, 30 sec, 40 sec) Bed Mobility 1 Bed Mobility Comments 1 -- -- -- -- sit-->supine with mod assist x1 for SARAH LEs, supine-->sitwith max assist x1 on mat Transfer 1 Trials/Comments 1 -- -- -- -- WC<-->mat with max assist x1 in SARAH directions via slide board transfer Ambulation Ambulation -- -- -- -- No Stairs Stairs -- -- -- -- No Assessment Potential/Prognosis -- -- -- -- Good Recommendation/Plan PT Recommendation/Plan -- -- -- -- -- Pending pt progress. Treatment/Interventions -- -- -- -- -- Continue per plan of care. PT Equipment Recommended -- -- -- -- -- Further assessment required pending pt progress. Row Name 11/02/17 0818 11/02/17 0800 11/02/17 0720 11/02/17 0718 11/02/17 0716 PT Last Visit Session Type -- Treatment -- -- -- Precautions Precautions -- Bed/Chair Alarm;Aspiration;Fall risk Fall risk -- -- Pain Assessment Pain Assessment No/denies pain -- 0-10 -- -- Pain Score 0 - No pain 5 - Moderate pain 9 9 9 Patient's Stated Pain Goal No pain -- No pain -- -- Pain Type -- -- Chronic pain -- -- Pain Location -- Back (Lumbar) Back (Lumbar) -- -- Clinical Progression -- Not changed 1330 510 -- -- -- Pain Interventions -- RN Notified Medication (See MAR) -- -- Cognition Orientation Level -- -- Oriented X4 -- -- Row Name 11/02/17 0354 11/02/17 03111/02/17 0000 11/01/17224911/01/17 215 Precautions Precautions -- -- Fall risk -- -- Pain Assessment Pain Assessment Sleeping 0-10 -- Sleeping 0-10 Pain Score 0 - No pain 6 -- 0 - No pain 6 Pain Type -- Chronic pain -- -- Chronic pain Pain Location -- Back (Lumbar) -- -- Back (Lumbar) Pain Orientation -- Lower;Mid -- -- Lower;Mid Pain Radiating Towards -- bilateral Quads -- -- -- Pain Descriptors -- Aching -- -- Aching Pain Frequency -- Intermittent -- -- -- Pain Interventions -- Medication (See MAR) -- -- Medication (See MAR) Row Name 11/01/17214411/01/17199911/01/17 1950 11/01/17 1853 11/01/17 1313 Precautions Precautions -- Fall risk -- -- -- Pain Assessment Pain Assessment -- -- Sleeping 0-10 -- Pain Score -- -- 0 - No pain 4 7 Pain Type -- -- -- Chronic pain -- Pain Location -- -- -- Back (Lumbar) -- Pain Descriptors -- -- -- Aching -- Pain Interventions -- -- -- Medication (See MAR) -- Cognition Orientation Level Oriented X4 -- -- -- -- Row Name 11/01/17 0911/01/17 0911/01/17 0911/01/17 0800 PT Last Visit Session Type -- -- Treatment Treatment Current Functional Status PT Functional Mobility -- -- AM: sit<-->stand x4 reps in // bars with max assist x2 and SARAH UE support (50 sec, 60 sec, 65 sec, 45 sec), WC-->mat with max assist x1 + mod assist from 2nd person via slide board to right side, sit<-->supine on mat with max assist x1, mat-->WC downhill with max assist x1 via slide board, propels WC 180' + 150' with supervision and 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 PM: transfers WC-->standing frame with total assist x2 via garrett lift, balloon batting w/ SARAH UEs in standing frame with several short rest breaks as needed. Pt's transfers and bed mobility remain unchanged from prior sessions. Pt's endurance and speed with WC mobility is improving. Pt's standing endurance and postural control is improving with standing in // bars but still r equires max assist x2 to stand upright. Pt less SOB with exertion and is off O2 via NC. Pt able to assist more with slide board transfer today. Pt did well with standing frame while balloon batting, and is overall tolerating sessions well w/ less fatigue. Pt to benefit from continued transfer training and standing endurance tasks, and may benefit from Lite Gait training on tile floor to initiate stepping/walking tasks. Pt reports increased pain today with muscle spasms in low back. RN and MD notified. Pt is progressing towards goals and highly motivated to participate with PT. Continue per plan of care. -- Precautions Precautions -- Fall risk Bed/Chair Alarm;Fall risk Bed/Chair Alarm;Aspiration;Fall risk Pain Assessment Pain Assessment -- -- 0-10 -- Pain Score -- -- 6 5 - Moderate pain Pain Type -- -- Chronic pain -- Pain Location -- -- Back (Lumbar) Back (Lumbar) Pain Orientation -- -- Lower;Mid -- Pain Radiating Towards -- -- SARAH quads and hamstrings are also very sore per pt's report -- Pain Descriptors -- -- Aching;Spasm;Sore -- Pain Frequency -- -- Intermittent -- Pain Onset -- -- Ongoing -- Clinical Progression -- -- Gradually worsening 12/13 LBP with activity. Not changed 1330 10/13 Pain Interventions -- -- Medication (See MAR);Repositioned;RN Notified meds given in PM session RN Notified Cognition Overall Cognitive Status -- -- WFL -- Orientation Level Oriented X4 -- Oriented X4 -- Static Standing Balance Static Standing-Balance Support -- -- Bilateral upper extremity supported;Unilateral upper extremity supported -- Static Standing-Level of Assistance -- -- Close supervision -- Static Standing-Comment/# of Minutes -- -- In standing frame, pt batted balloon alternating UEs forapproximately 10 minutes, taking short rest breaks intermittently as needed. -- Other Activities Other Activities -- -- Other (Comment) Sit<-->stand training -- Other Activities Comments -- -- sit<-->stand x4 reps in // bars with max assist x2 and SARAH UEsupport (50 sec, 60 sec, 65 sec, 45 sec) -- Equipment Use Standing Frame Comments -- -- Pt stood in standing frame for the last 10 minutes of PM session while batting balloon alternating UEs. -- Bed Mobility 1 Bed Mobility Comments 1 -- -- sit<-->supine on mat with max assist x1 -- Transfer 1 Transfer From 1 -- -- -- Bed Transfer Type 1 -- -- -- To Transfer to 1 -- -- -- Wheelchair Technique 1 -- -- -- Squat pivot Transfer Device 1 -- -- -- -- manual sit to stand, max of 1, mod of 1 Trials/Comments 1 -- -- WC<-->mat with max assist x1-2 via slide board to right side, sit<-->paving foreman // bars x4 reps with max assist x2, WC-->standing frame with total assist x2 via garrett lift -- Transfers 2 Trials/Comments 2 -- -- -- garrett transfer 2 person from standing frame to bed Wheelchair Activities Wheelchair Type -- -- Recliner -- Wheelchair Cushion -- -- Pressure relieving -- Pressure Relief Type -- -- Tilt back manual pt needs max assist x2 to adjust in WC -- Level of Assistance for Pressure Relief Activities -- -- Dependent -- Propulsion -- -- Yes -- Propulsion Type 1 -- -- Manual -- Level 1 -- -- Level tile -- Method 1 -- -- Bilateral upper extremity -- Level of Assistance 1 -- -- Close supervision;Moderate verbal cues -- Distance (ft) -- -- 150' + 180' -- Description/ Details 1 -- -- much extra time required -- Ambulation Ambulation -- -- No -- Stairs Stairs -- -- No -- Assessment Potential/Prognosis -- -- Good -- Recommendation/Plan PT Recommendation/Plan -- -- -- Pending pt progress. -- Treatment/Interventions -- -- -- Continue per plan of care. -- PT Equipment Recommended -- -- -- Further assessment required pending pt progress. -- PT Notes (Notes from 11/02/17 through 11/04/17) No notes of this type exist for this encounter. , TOWING PILOT Eval and Treat Last 72 Hours TOWING PILOT Evaluation No documentation. TOWING PILOT Treatment No documentation. Clinical Swallow Study No documentation. TOWING PILOT Notes (Notes from 11/02/17 through 11/04/17) No notes of this type exist for this encounter. * [facility] Note - Brenden Pathak LCSW - 11/04/2017 7:16 AM CDT Patient Information: Comprehensive Nursing Documentation Travel and Exposure Screening Most Recent Value Travel Screening Traveled outside the [place] in the last month? No Filed On: 10/24/20171999 Exposure Screening Contact with someone with a communicable disease in the last month? 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) Code Status: FULL Ht: 180.3 cm (5' 11 ) Wt: 93 kg (205 lb 0.4 oz) Admission Cmt: None Principal Problem: None Intake/Output 11/01/17 07 - 11/02/17 0659 11/02/17 07 - 11/03/17 0659 11/03/17 07 - 11/04/17 0659 11/04/17 07 - 11/05/17 0659 Total Total [id number] 1091-2523 0577-2300 Total [id number] [phone] 0031-1626 Total Intake (ml) 360 710 780 0 0 780 -- -- -- -- Output (ml) 475 1000 0 0 300 300 0 0 0 0 Net (ml) -115 -290 780 0 -300 480 0 0 0 0 Patient Lines/Drains/Airways Status Active Airway / Central venous catheter / Drain / Epidural cathether / Intraosseous line / Peripherally inserted central catheter / Peripheral intravenous line / Arterial line Name: Placement date: Placement time: Site: Days: Gastrostomy/Enterostomy Percutaneous endoscopic gastrostomy (PEG) 1 LUQ 09/15/17 50 Patient Lines/Drains/Airways Status Active Wound / Pressure ulcer / Slaughter / Negative Pressure Wound Wound 10/24/17 MASD (Moisture associated skin damage) Buttocks Bilateral MASD to buttocks; Redness to groin Date First Assessed 10/24/17 Site: Buttocks Time First Assessed 1999 Days: 10 Location Orientation: Bilateral Wound Description (Comments): MASD to buttocks; Redness to groin Wound Type: MASD (Moisture associated skin damage) Present on Hospital Admission: Yes Assessments 11/03/17212911/03/1774911/03/1759911/02/17219911/02/17 0720 Wound Status Healing Healing Healing Healing Site Assessment Red Crafton Crafton;Red;Excoriated Crafton;Red;Excoriated Crafton;Excoriated Mandy-wound Assessment Blanchable erythema Blanchable erythema Blanchable erythema Drainage Amount None None Interventions Topical barrier cream Topical barrier cream Cleansed;Topical barrier cream Topical barrier cream Topical barrier cream Dressing Status Open to Air Open to Air Open to Air Open to Air Open to Air Wound 10/24/17 Open wound Back Left;Medial Back Wound- dehisced Date First Assessed 10/24/17 Site: Back Time First Assessed 1999 Days: 10 Location Orientation: Left;Medial Wound Description (Comments): Back Wound- dehisced Wound Type: Open wound Present on Hospital Admission: Yes Assessments 11/03/17212911/03/1774911/03/1759911/02/17219911/02/17 0720 Wound Status Healing Healing Healing Site Assessment AMARI Crafton;Yellow AMARI AMARI Margins Defined edges Mandy-wound Assessment Dry;Intact Closure Unapproximated Unapproximated Drainage Description Serous;Yellow Drainage Odor No odor Interventions Cleansed Dressing Status Clean/Dry/Intact Changed Clean/Dry/Intact Clean/Dry/Intact Dressing Dry dressing Wound 10/29/17 Skin tear Arm Left 1cm Date First Assessed 10/29/17 Site: Arm Time First Assessed 2100 Days: 5 Location Orientation: Left Wound Description (Comments): 1cm Wound Type: Skin tear Present on Hospital Admission: No Assessments 11/03/17212911/03/17 1149 11/03/17 0611/02/17 2200 11/02/17 0720 Wound Status Healing Healing Site Assessment Other (Comment) Crafton;Intact AMARI AMARI Drainage Amount None Interventions Cleansed Cleansed Dressing Status New Changed Clean/Dry/Intact Clean/Dry/Intact;Other (Comment) Dressing Wound gel;Non adherent Dry dressing Dry dressing Wound 10/29/17 Abrasion(s) Groin Left Date First Assessed 10/29/17 Site: Groin Time First Assessed 2100 Days: 5 Location Orientation: Left Wound Type: Abrasion(s) Assessments 11/03/17212911/03/1759911/02/17219911/02/17 0720 Wound Status Healing Healing Healing Healing Site Assessment Crafton;Excoriated Crafton;Excoriated Crafton;Excoriated Drainage Amount None None Interventions Cleansed Dressing Status Changed Clean/Dry/Intact Dressing Dry dressing Garcia Fall Risk Most Recent Value History of Falling 0 ............filed at 11/03/20172029 Secondary Diagnosis 15 ............filed at 11/03/20172029 Ambulatory Aids 0 ............filed at 11/03/20172029 Intravenous Therapy/Heparin/Saline Lock 0 ............filed at 11/03/20172029 Gait/Transferring 20 ............filed at 11/03/20172029 Mental Status 0 ............filed at 11/03/20172029 Garcia Fall Risk Score 35 ............filed at 11/03/20172029 Vital Signs 11/03 699 - 11/04 0659 11/04 07 - 11/04 0716 Most Recent Temp (??C) 36.4 - 36.7 36.7 (98) Pulse 64 - 106 89 Resp 18 - 20 18 BP 98/53 - 126/75 104/53 SpO2 (%) 92 - 99 92 Default Flowsheet Data (most recent) Endurance Tests None Nursing Nutrition Feeding Level of Assistance Able to feed self at 11/03 2029 Able to feed self at 11/03 08 Able to feed self at 11/02 1800 Able to feed self at 11/02 0720 Able to feed self at 11/01 0910 Appetite Good at 11/03 0805 Good at 11/02 1800 Good at 11/01 0910 Nursing Mobility Activity Chair at 11/03 2029 Chair at 11/03 1730 Chair at 11/03 1000 Chair at 11/03 0750 Chair at 11/03 0600 Resting in bed at 11/03 0400 Resting in bed at 11/03 0200 Resting in bed at 11/03 0000 Resting in bed at 11/02 2300 Resting in bed at 11/02 2200 Resting in bed at 11/02 2000 Chair at 11/02 0720 Resting in bed at 11/02 0000 Resting in bed at 11/01 2000 Chair at 11/01 0910 Level of Assistance Maximum assist, patient does 25-49% at 11/03 2029 Maximum assist, patient does 25-49% at 11/03 999 Maximum assist, patient does 25-49% at 11/03 0750 Maximum assist, patient does 25-49% at 11/02 2300 Maximum assist, patient does 25-49% at 11/02 2000 Maximum assist, patient does 25-49% at 11/02 0720 Maximum assist, patient does 25-49% at 11/02 0000 Maximum assist, patient does 25-49% at 11/02 1999 Dependent, patient does less than 25% at 11/01 0910 Length of Time in Chair (min) 120 at 11/03 2029 Assistive Device Mechanical lift;Manual wheelchair at 11/03 2029 Manual wheelchair;Mechanical lift;Gait belt at 11/03 1000 (Comment: garrett lift) Manual wheelchair;Other (Comment) at 11/02 2300 (Comment: garrett lift) Gait belt;Manual wheelchair;Other (Comment) at 11/03 1999 (Comment: garrett) Manual wheelchair;Mechanical lift at 11/02 0720 Manual wheelchair;Mechanical lift at 11/02 0000 Manual wheelchair;Other (Comment) at 11/02 1999 (Comment: garrett lift) Ambulation Response Tolerated poorly at 11/03 1999 Repositioned Left side at 11/04 0400 Right side at 11/04 0200 Left side at 11/04 0023 Right side at 11/03 2200 Up in chair at 11/03 2030 Up in chair at 11/03 1730 Up in chair at 11/03 1000 Sitting at 11/03 0600 Left side at 11/03 0400 Right side at 11/03 0200 Supine at 11/03 0000 Left side at 11/02 2300 Right side at 11/02 2200 Supine at 11/02 2000 Sitting at 11/02 0720 Left side at 11/02 0000 Supine at 11/01 2000 Up in chair at 11/01 0910 Positioning Frequency Every 2 hours at 11/04 0400 Every 2 hours at 11/04 0200 Every 2 hours at 11/04 0023 Every 2 hours at 11/03 2200 Every 2 hours at 11/03 2030 Able to turn self at 11/03 1000 Every 2 hours at 11/03 0400 Every 2 hours at 11/03 0200 Every 2 hours at 11/03 0000 Every 2 hours at 11/02 2300 (Comment: assisting patient every 2 hours) Every 2 hours at 11/02 2200 Every 2 hours at 11/02 2000 Every 2 hours at 11/02 0720 Every 2 hours at 11/02 0000 Every 2 hours at 11/01 2000 Every 2 hours at 11/01 0910 Head of Bed Elevated HOB less than 20 at 11/04 0400 HOB less than 20 at 11/04 0200 HOB less than 20 at 11/04 0023 HOB less than 20 at 11/02 2300 HOB less than 20 at 11/02 2000 HOB less than 20 at 11/02 0000 HOB less than 20 at 11/01 2000 Heels/Feet Bilateral multi-podus boots at 11/04 0400 Bilateral multi-podus boots at 11/04 0200 Bilateral heel protectors at 11/03 2029 Bilateral heel protectors at 11/02 07 Bilateral heel protectors at 11/02 Heels elevated off bed at 11/02 1999 Range of Motion Active;Right arm;Left arm at 11/03 2029 Default Flowsheet Data (last 24 hours) Sitter Documentation Row Name 11/03/172029 Sitter Documentation Sitter Not indicated , Meds and Admin Active Only All Meds/Most Recent Administrations acetaminophen (TYLENOL) tablet 650 mg [[id number]] Ordering Provider: Rachna Burt MD Status: Dispensed Ordered On: 10/24/172033 Start: 10/24/172004 Dose (Remaining/Total): 650 mg (--/--) Route: oral Frequency: Every 4 hours PRN Rate/Duration: -- / -- Timestamps Action Dose Route Other Information 11/02/171751 Given 650 mg oral Performed by: Neetu Schmitt RN albuterol (PROVENTIL,VENTOLIN) 2.5 mg/0.5 mL nebulizer solution 5 mg [[id number]] Ordering Provider: Rachna Burt MD Status: Dispensed Ordered On: 10/24/172033 Start: 10/24/172004 Dose (Remaining/Total): 5 mg (--/--) Route: nebulization Frequency: Every 6 hours PRN Rate/Duration: -- / -- (No admins recorded for this medication) amiodarone (PACERONE) tablet 200 mg [[id number]] Ordering Provider: Rachna Burt MD Status: Dispensed Ordered On: 10/24/172033 Start: 10/24/172114 Dose (Remaining/Total): 200 mg (--/--) Route: oral Frequency: 2 times daily Rate/Duration: -- / -- Timestamps Action Dose Route Other Information 11/03/172128 Given 200 mg oral Performed by: Amanda Burnette RN apixaban (ELIQUIS) tablet 5 mg [[id number]] Ordering Provider: Rachna Burt MD Status: Dispensed Ordered On: 10/24/172033 Start: 10/24/172114 Dose (Remaining/Total): 5 mg (--/--) Route: oral Frequency: 2 times daily Rate/Duration: -- / -- Admin Instructions: May crush and suspend in 60 ml of water, D5W, apple juice or apple sauce. If onheparin infusion, discontinue heparin infusion upon first administration of apixaban. Timestamps Action Dose Route Other Information 11/03/172129 Given 5 mg oral Performed by: Amanda Burnette RN aspirin enteric coated tablet 81 mg [[id number]] Ordering Provider: Rachna Burt MD Status: Dispensed Ordered On: 10/24/172033 Start: 10/25/17899 Dose (Remaining/Total): 81 mg (--/--) Route: oral Frequency: Daily Rate/Duration: -- / -- Admin Instructions: Do not crush or chew Timestamps Action Dose Route Other Information 11/03/17802 Given 81 mg oral Performed by: Neena Jackson RN atorvastatin (LIPITOR) tablet 20 mg [[id number]] Ordering Provider: Rachna Burt MD Status: Dispensed Ordered On: 10/24/172033 Start: 10/25/17899 Dose (Remaining/Total): 20 mg (--/--) Route: oral Frequency: Daily Rate/Duration: -- / -- Timestamps Action Dose Route Other Information 11/03/17800 Given 20 mg oral Performed by: Neena Jackson RN chlorhexidine (PERIDEX) 0.12 % solution 5 mL [[id number]] Ordering Provider: Rachna Burt MD Status: Dispensed Ordered On: 10/24/172033 Start: 10/24/172114 Dose (Remaining/Total): 5 mL (--/--) Route: mouth/throat Frequency: 2 times daily Rate/Duration: -- / -- Timestamps Action Dose Route Other Information 11/03/172130 Given 5 mL mouth/throat Performed by: Amanda Burnette RN diphenhydrAMINE (BENADRYL) tab/cap 25 mg [[id number]] Ordering Provider: Rachna Burt MD Status: Dispensed Ordered On: 10/24/172033 Start: 10/24/172008 Dose (Remaining/Total): 25 mg (--/--) Route: oral Frequency: 3 times daily PRN Rate/Duration: -- / -- Timestamps Action Dose Route Other Information 11/03/172129 Given 25 mg oral Performed by: Amanda Burnette RN metoprolol (LOPRESSOR) tablet 12.5 mg [[id number]] Ordering Provider: Rachna Burt MD Status: Dispensed Ordered On: 10/24/172033 Start: 10/24/172114 Dose (Remaining/Total): 12.5 mg (--/--) Route: oral Frequency: 2 times daily Rate/Duration: -- / -- Timestamps Action Dose Route Other Information 11/03/172129 Given 12.5 mg oral Performed by: Amanda Burnette RN ondansetron (ZOFRAN) tablet 4 mg [[id number]] Ordering Provider: Rachna Burt MD Status: Dispensed Ordered On: 10/24/172033 Start: 10/24/172011 Dose (Remaining/Total): 4 mg (--/--) Route: oral Frequency: Every 4 hours PRN Rate/Duration: -- / -- Timestamps Action Dose Route Other Information 11/03/17 1010 Given 4 mg oral Performed by: Neena Jackson RN oxyCODONE (ROXICODONE) tablet 5 mg [[id number]] Ordering Provider: Rachna Burt MD Status: Dispensed Ordered On: 10/24/172033 Start: 10/24/172011 Dose (Remaining/Total): 5 mg (--/--) Route: oral Frequency: Every 4 hours PRN Rate/Duration: -- / -- Timestamps Action Dose Route Other Information 11/01/17 1313 Given 5 mg oral Performed by: Agustin Das RN oxyCODONE (ROXICODONE) tablet 10 mg [[id number]] Ordering Provider: Rachna Burt MD Status: Dispensed Ordered On: 10/24/172033 Start: 10/24/172012 Dose (Remaining/Total): 10 mg (--/--) Route: oral Frequency: Every 4 hours PRN Rate/Duration: -- / -- Admin Instructions: Do not crush or chew Timestamps Action Dose Route Other Information 11/03/17 1923 Given 10 mg oral Performed by: Neena Jackson RN pantoprazole DR (PROTONIX) extended release tablet 40 mg [[id number]] Ordering Provider: Rachna Burt MD Status: Dispensed Ordered On: 10/24/172033 Start: 10/25/17 0900 Dose (Remaining/Total): 40 mg (--/--) Route: oral Frequency: Daily Rate/Duration: -- / -- Admin Instructions: Do not crush or chew Timestamps Action Dose Route Other Information 11/03/17 08 Given 40 mg oral Performed by: Neena Jackson RN senna (SENOKOT) tablet 1 tablet [[id number]] Ordering Provider: Rachna Burt MD Status: Dispensed Ordered On: 10/24/172033 Start: 10/25/17899 Dose (Remaining/Total): 1 tablet (--/--) Route: oral Frequency: Daily Rate/Duration: -- / -- Timestamps Action Dose Route Other Information 11/03/17801 Given 1 tablet oral Performed by: Neena Jackson RN tamsulosin (FLOMAX) extended release capsule 0.4 mg [[id number]] Ordering Provider: Rachna Burt MD Status: Dispensed Ordered On: 10/24/172033 Start: 10/24/172114 Dose (Remaining/Total): 0.4 mg (--/--) Route: oral Frequency: Nightly Rate/Duration: -- / -- Admin Instructions: Do not crush or chew Timestamps Action Dose Route Other Information 11/03/172129 Given 0.4 mg oral Performed by: Amanda Burnette RN zolpidem (AMBIEN) tablet 5 mg [[id number]] Ordering Provider: Rachna Burt MD Status: Dispensed Ordered On: 10/24/172033 Start: 10/24/172015 Dose (Remaining/Total): 5 mg (--/--) Route: oral Frequency: Nightly PRN Rate/Duration: -- / -- Timestamps Action Dose Route Other Information 11/03/172129 Given 5 mg oral Performed by: Amanda Burnette RN budesonide-formoterol (SYMBICORT) 80-4.5 mcg/actuation inhaler 1 puff [[id number]] Ordering Provider: Rachna Burt MD Status: Verified Ordered On: 10/24/172099 Start: 10/24/172144 Dose (Remaining/Total): 1 puff (--/--) Route: inhalation Frequency: 2 times daily (correspondent) Rate/Duration: -- / -- Admin Instructions: Rinse mouth with water after use to reduce aftertaste and incidence of candidiasis. Do not swallow. Timestamps Action Dose Route Other Information 11/03/172146 Given 1 puff inhalation Performed by: Lorena Membreno CRTT dextrose (GLUTOSE) 40 % gel 15 g [[id number]] Ordering Provider: Jason Shore Jr. OWNER/PHOTOGRAPHER Status: Verified Ordered On: 10/24/172107 Start: 10/24/172057 Dose (Remaining/Total): 15 g (--/--) Route: oral Frequency: Every 15 min PRN Rate/Duration: -- / -- Admin Instructions: If patient is alert and able to eat/drink, give 15 gram glucose or one juice (4fluid ounces) NOT ORANGE JUICE [employer] STATES GLUTOSE-15 CONTAINS GLUCOSE 40% W/W (50% W/V) (No admins recorded for this medication) dextrose 50% (concentrated solution) CONCENTRATED solution 25 g [[id number]] Ordering Provider: Jason Shore Jr. OWNER/PHOTOGRAPHER Status: Verified Ordered On: 10/24/172107 Start: 10/24/172057 Dose (Remaining/Total): 25 g (--/--) Route: intravenous Frequency: Every 15 min PRN Rate/Duration: -- / -- Admin Instructions: If patient is NPO or unresponsive, give dextrose 50% IV Push over 2 minutes. (No admins recorded for this medication) glucagon injection 1 mg [[id number]] Ordering Provider: Jason Shore Jr., BELLA Status: Verified Ordered On: 10/24/172107 Start: 10/24/172057 Dose (Remaining/Total): 1 mg (--/--) Route: intramuscular Frequency: Every 30 min PRN Rate/Duration: -- / -- Admin Instructions: If patient has no IV access and not alert, given Glucagon IM then follow with either oral glucose or IV dextrose treatment. (No admins recorded for this medication) miconazole 2 % powder [[id number]] Ordering Provider: Rachna Burt MD Status: Dispensed Ordered On: 10/25/17617 Start: 10/25/17899 Dose (Remaining/Total): -- (--/--) Route: topical Frequency: 2 times daily Rate/Duration: -- / -- Question Answer Comment Apply to affected area:: other groin Timestamps Action Dose / Rate / Duration Route Other Information 11/03/172130 Given -- topical Performed by: Amanda Burnette RN zinc sulfate (ZINCATE) capsule 220 mg [[id number]] Ordering Provider: Rachna Burt MD Status: Dispensed Ordered On: 10/25/17 1035 Start: 10/25/17 111 Dose (Remaining/Total): 220 mg (--/--) Route: oral Frequency: Daily Rate/Duration: -- / -- Timestamps Action Dose Route Other Information 11/03/17 08 Given 220 mg oral Performed by: Neena Jackson RN ascorbic acid (VITAMIN C) tablet/chewable tablet 500 mg [[id number]] Ordering Provider: Rachna Burt MD Status: Dispensed Ordered On: 10/25/171034 Start: 10/25/171114 Dose (Remaining/Total): 500 mg (--/--) Route: oral Frequency: 2 times daily Rate/Duration: -- / -- Timestamps Action Dose Route Other Information 11/03/172129 Given 500 mg oral Performed by: Amanda Burnette RN collagenase 250 unit/gram ointment [[id number]] Ordering Provider: Rachna Burt MD Status: Dispensed Ordered On: 10/25/17 165 Start: 10/25/17 173 Dose (Remaining/Total): -- (--/--) Route: topical Frequency: Daily Rate/Duration: -- / -- Admin Instructions: Use with wet to dry dressing change to left mid back wound. Question Answer Comment Apply to affected area:: wound left mid back wound Timestamps Action Dose / Rate / Duration Route Other Information 11/03/17 0804 Given -- topical Performed by: Neena Jackson RN ergocalciferol (VITAMIN D) capsule 50,000 Units [[id number]] Ordering Provider: Adam Pastor MD Status: Dispensed Ordered On: 10/26/17 0657 Start: 10/26/17 0900 Dose (Remaining/Total): 50,000 Units (--/--) Route: oral Frequency: Weekly Rate/Duration: -- / -- Timestamps Action Dose Route Other Information 11/02/17 0719 Given 50,000 Units oral Performed by: Neetu Schmitt RN Comments: given before therapy bumetanide (BUMEX) tablet 0.5 mg [[id number]] Ordering Provider: Александр Espino Jr., MD Status: Dispensed Ordered On: 10/29/17729 Start: 10/29/17899 Dose (Remaining/Total): 0.5 mg (--/--) Route: oral Frequency: Daily Rate/Duration: -- / -- Timestamps Action Dose Route Other Information 11/03/17800 Given 0.5 mg oral Performed by: Neena Jackson RN docusate sodium (COLACE) capsule 100 mg [[id number]] Ordering Provider: Jason Shore Jr., NP Status: Dispensed Ordered On: 10/29/17737 Start: 10/29/17899 Dose (Remaining/Total): 100 mg (--/--) Route: oral Frequency: 2 times daily Rate/Duration: -- / -- Timestamps Action Dose Route Other Information 11/03/172129 Given 100 mg oral Performed by: Amanda Burnette RN polyethylene glycol (MIRALAX) packet 17 g [[id number]] Ordering Provider: Jason Shore Jr., NP Status: Dispensed Ordered On: 10/29/17737 Start: 10/29/17735 Dose (Remaining/Total): 17 g (--/--) Route: oral Frequency: 2 times daily PRN Rate/Duration: -- / -- Timestamps Action Dose Route Other Information 11/03/17804 Given 17 g oral Performed by: Neena Jackson RN bisacodyl EC (DULCOLAX EC) tablet 5 mg [[id number]] Ordering Provider: Jason Shore Jr., NP Status: Dispensed Ordered On: 10/29/17737 Start: 10/29/17736 Dose (Remaining/Total): 5 mg (--/--) Route: oral Frequency: 2 times daily PRN Rate/Duration: -- / -- Admin Instructions: Do not crush or chew Timestamps Action Dose Route Other Information 10/29/17 1329 Given 5 mg oral Performed by: Neena Jackson RN bisacodyl (DULCOLAX) suppository 10 mg [[id number]] Ordering Provider: Jason Shore Jr., NP Status: Dispensed Ordered On: 10/29/17737 Start: 10/29/1737 Dose (Remaining/Total): 10 mg (--/--) Route: rectal Frequency: Daily PRN Rate/Duration: -- / -- Timestamps Action Dose Route Other Information 10/29/172138 Given 10 mg rectal Performed by: Kelsea Burnette RN lidocaine (LIDODERM) 5 % patch 1 patch [[id number]] Ordering Provider: Jason Shore Jr., NP Status: Dispensed Ordered On: 10/29/17737 Start: 10/29/17 09 Dose (Remaining/Total): 1 patch (--/--) Route: transdermal Frequency: Daily Rate/Duration: -- / 12 Hours Admin Instructions: Do not cover the holes on the top side of the patch. Question Answer Comment Apply to affected area:: back -- Timestamps Action Dose / Duration Route / Site Other Information 11/03/17 0802 Medication Applied 1 patch 12 Hours transdermal Other (Comment) Performed by: Neena Jackson RN Comments: lower back ipratropium-albuterol (DUO-NEB) 0.5-2.5 mg/3 mL nebulizer solution 3 mL [[id number]] Ordering Provider: Rachna Burt MD Status: Verified Ordered On: 10/29/1756 Start: 10/29/17 1000 Dose (Remaining/Total): 3 mL (--/--) Route: nebulization Frequency: Every 4 hours PRN (correspondent) Rate/Duration: -- / -- (No admins recorded for this medication) baclofen (LIORESAL) tablet 5 mg [[id number]] Ordering Provider: Jason Shore Jr., NP Status: Dispensed Ordered On: 11/03/171534 Start: 11/03/17 1800 Dose (Remaining/Total): 5 mg (--/--) Route: oral Frequency: 3 times daily with meals Rate/Duration: -- / -- Timestamps Action Dose Route Other Information 11/03/171818 Given 5 mg oral Performed by: Leslye Santoyo RN , Wound Info Only Patient Lines/Drains/Airways Status Active Wound / Pressure ulcer / Slaughter / Negative Pressure Wound Wound 10/24/17 MASD (Moisture associated skin damage) Buttocks Bilateral MASD to buttocks; Redness to groin Date First Assessed 10/24/17 Site: Buttocks Time First Assessed 2000 Days: 10 Location Orientation: Bilateral Wound Description (Comments): MASD to buttocks; Redness to groin Wound Type: MASD (Moisture associated skin damage) Present on Hospital Admission: Yes Assessments 11/03/17212911/03/17 0750 11/03/17 0611/02/17219911/02/17 0720 Wound Status Healing Healing Healing Healing Site Assessment Red Crafton Crafton;Red;Excoriated Crafton;Red;Excoriated Crafton;Excoriated Mandy-wound Assessment Blanchable erythema Blanchable erythema Blanchable erythema Drainage Amount None None Interventions Topical barrier cream Topical barrier cream Cleansed;Topical barrier cream Topical barrier cream Topical barrier cream Dressing Status Open to Air Open to Air Open to Air Open to Air Open to Air Wound 10/24/17 Open wound Back Left;Medial Back Wound- dehisced Date First Assessed 10/24/17 Site: Back Time First Assessed 1999 Days: 10 Location Orientation: Left;Medial Wound Description (Comments): Back Wound- dehisced Wound Type: Open wound Present on Hospital Admission: Yes Assessments 11/03/17212911/03/17 07511/03/17 0611/02/17219911/02/17 0720 Wound Status Healing Healing Healing Site Assessment AMARI Crafton;Yellow AMARI AMARI Margins Defined edges Mandy-wound Assessment Dry;Intact Closure Unapproximated Unapproximated Drainage Description Serous;Yellow Drainage Odor No odor Interventions Cleansed Dressing Status Clean/Dry/Intact Changed Clean/Dry/Intact Clean/Dry/Intact Dressing Dry dressing Wound 10/29/17 Skin tear Arm Left 1cm Date First Assessed 10/29/17 Site: Arm Time First Assessed 2100 Days: 5 Location Orientation: Left Wound Description (Comments): 1cm Wound Type: Skin tear Present on Hospital Admission: No Assessments 11/03/17 21311/03/17 1149 11/03/17 0611/02/17219911/02/17 0720 Wound Status Healing Healing Site Assessment Other (Comment) Crafton;Intact AMARI AMARI Drainage Amount None Interventions Cleansed Cleansed Dressing Status New Changed Clean/Dry/Intact Clean/Dry/Intact;Other (Comment) Dressing Wound gel;Non adherent Dry dressing Dry dressing Wound 10/29/17 Abrasion(s) Groin Left Date First Assessed 10/29/17 Site: Groin Time First Assessed 2100 Days: 5 Location Orientation: Left Wound Type: Abrasion(s) Assessments 11/03/17 2130 11/03/17 0600 11/02/17 2200 11/02/17 0720 Wound Status Healing Healing Healing Healing Site Assessment Crafton;Excoriated Crafton;Excoriated Crafton;Excoriated Drainage Amount None None Interventions Cleansed Dressing Status Changed Clean/Dry/Intact Dressing Dry dressing * Plan of Care - Amanda Burnette RN - 11/04/2017 3:16 AM CDT Goals: Clinical Goals for the Shift: Patient's pain will be under control Summary: Patient comfortably sleeping in bed. No distress noted. Activity: ??? Mobility will improve Progressing Bladder/Voiding ??? LTG - Patient will achieve acceptable level of continence Progressing ??? STG - Patient demonstrates no accidents Progressing Bowel Elimination ??? LTG - Patient will have regular and routine bowel evacuation Progressing ??? LTG - Patient will complete bowel elimination Progressing ??? STG - Patient maintains skin integrity Progressing ??? STG - Patient will verbalize signs and symptoms of constipation and how to prevent/alleviate Progressing ??? STG - Patient will be continent of stool Progressing ??? STG - Patient verbalizes knowledge about relationship between diet, fluid intake, activity and medication on constipation Progressing Health Behavior: ??? Understanding of discharge needs will improve Progressing Lack of Knowledge: ??? Ability to state ways to decrease the risk of falls will improve Progressing Lack of Knowledge: ??? Understanding of ways to prevent future skin breakdown will improve Progressing ??? Ability to identify appropriate dietary choices will improve Progressing Nutritional: ??? Dietary intake will improve Progressing ??? Ability to maintain a balanced intake and output will improve Progressing Safety: ??? Will remain free from falls Progressing ??? Will remain free from injury from falls Progressing ??? Will remain free from falls and injury in home environment Progressing Skin Integrity: ??? Risk for impaired skin integrity will decrease Progressing ??? Ability to demonstrate warm and dry skin will improve Progressing ??? Circulation will improve to fullest extent possible Progressing * Plan of Care - Kateryna Lunsford PT - 11/03/2017 6:07 PM CDT Problem: PT Misc Goal: LTG - Misc 1 Pt will roll SARAH and supine<-->sit EOB with supervision and bedrails as needed. Pt will sit<-->stand with minimum assist and appropriate assistive device. Pt will transfer bed<-->wheelchair/chair with minimum assist and appropriate assistive device. Outcome: Progressing Goal: LTG - Misc 2 Pt will ambulate 150' w/ minimum assist and appropriate assistive device. Pt will ambulate up/down 4 stairs with mod assist and SARAH rails. Outcome: Progressing Goal: LTG - Misc 3 Pt will propel WC 150' with supervision and extra time. Outcome: Progressing Goal: LTG - Misc 4 Pt will complete SARAH LE HEP x15 reps with supervision. Outcome: Progressing Goal: LTG - Misc 5 Pt and/or family will verbalize and demonstrate understanding of pt's safety and mobility needs upon discharge. Outcome: Progressing * Plan of Care - Brenden Pathak LCSW - 11/03/2017 5:55 PM CDT José Miguel And his seen together to review the discharge plans. We talked about pt needs with standing and transfers and gait. The team recommended snf placement for pt to continue to rehab prior togoing home. and son cannot physically lift pt. Pt wants to be able to stand and walk a few steps prior to going home. They agree with snf placement but are considering options where. They do want A referral to [facility] but not to [facility] in [place]. They are aware of discharge for 11/10. sw will follow up * Plan of Care - Neena Jackson RN - 11/03/2017 4:13 PM CDT Goals: Activity: ??? Mobility will improve Progressing Bladder/Voiding ??? LTG - Patient will achieve acceptable level of continence Progressing ??? STG - Patient demonstrates no accidents Progressing Bowel Elimination ??? LTG - Patient will have regular and routine bowel evacuation Progressing ??? LTG - Patient will complete bowel elimination Progressing ??? STG - Patient maintains skin integrity Progressing ??? STG - Patient will verbalize signs and symptoms of constipation and how to prevent/alleviate Progressing ??? STG - Patient will be continent of stool Progressing ??? STG - Patient verbalizes knowledge about relationship between diet, fluid intake, activity and medication on constipation Progressing Health Behavior: ??? Understanding of discharge needs will improve Progressing Lack of Knowledge: ??? Ability to state ways to decrease the risk of falls will improve Progressing Lack of Knowledge: ??? Understanding of ways to prevent future skin breakdown will improve Progressing ??? Ability to identify appropriate dietary choices will improve Progressing Nutritional: ??? Dietary intake will improve Progressing ??? Ability to maintain a balanced intake and output will improve Progressing Safety: ??? Will remain free from falls Progressing ??? Will remain free from injury from falls Progressing ??? Will remain free from falls and injury in home environment Progressing Skin Integrity: ??? Risk for impaired skin integrity will decrease Progressing ??? Ability to demonstrate warm and dry skin will improve Progressing ??? Circulation will improve to fullest extent possible Progressing Clinical Goals for the Shift: Patient's pain will be under control Summary: Patient had visitors today and in good spirits but report worsening leg spasms and tightness; OWNER/PHOTOGRAPHER notified and baclofen order changed from PRN to scheduled. Pt resting in bed. * Plan of Care - Tyrellfrankie DestinyHEATHER - 11/03/2017 10:05 AM CDT Problem: OT Misc Goal: LTG - Misc 1 Pt to dress modified IND Outcome: Progressing Goal: LTG - Misc 2 Pt to groom modified IND Outcome: Progressing Goal: LTG - Mis 3 Pt to bathe with transfer modified IND Outcome: Progressing Goal: LTG - Mis 4 Pt to toilet with transfer modified IND Outcome: Progressing Goal: LTG - Mis 5 Pt to complete UE HEP with IND to promote IND with self care and functional transfers Outcome: Progressing Problem: Cognitive: Goal: STG - Mis 1 Patient will execute multiple elements of a task with supervision Outcome: Progressing * Plan of Care - Raven Camejo RN - 11/03/2017 1:48 AM CDT Activity: ??? Mobility will improve Progressing Bladder/Voiding ??? LTG - Patient will achieve acceptable level of continence Progressing ??? STG - Patient demonstrates no accidents Progressing Bowel Elimination ??? LTG - Patient will have regular and routine bowel evacuation Progressing ??? LTG - Patient will complete bowel elimination Progressing ??? STG - Patient maintains skin integrity Progressing ??? STG - Patient will verbalize signs and symptoms of constipation and how to prevent/alleviate Progressing ??? STG - Patient will be continent of stool Progressing ??? STG - Patient verbalizes knowledge about relationship between diet, fluid intake, activity and medication on constipation Progressing Health Behavior: ??? Understanding of discharge needs will improve Progressing Lack of Knowledge: ??? Ability to state ways to decrease the risk of falls will improve Progressing Lack of Knowledge: ??? Understanding of ways to prevent future skin breakdown will improve Progressing ??? Ability to identify appropriate dietary choices will improve Progressing Nutritional: ??? Dietary intake will improve Progressing ??? Ability to maintain a balanced intake and output will improve Progressing Safety: ??? Will remain free from falls Progressing ??? Will remain free from injury from falls Progressing ??? Will remain free from falls and injury in home environment Progressing Skin Integrity: ??? Risk for impaired skin integrity will decrease Progressing ??? Ability to demonstrate warm and dry skin will improve Progressing ??? Circulation will improve to fullest extent possible Progressing Goals: Clinical Goals for the Shift: Patient will be free from injury, have tolerable pain level, and no further skin breakdown. Summary: Patient resting in bed. Took prn pain medication for back pain and sleep aide pill. Turning in bed with staff assistance. On air mattress. Continent of urine. RN bathe and dress during morning. Vitals stable. * Plan of Care - Kateryna Lunsford PT - 11/02/2017 4:55 PM CDT Problem: PT Misc Goal: LTG - Misc 1 Pt will roll SARAH and supine<-->sit EOB with supervision and bedrails as needed. Pt will sit<-->stand with minimum assist and appropriate assistive device. Pt will transfer bed<-->wheelchair/chair with minimum assist and appropriate assistive device. Outcome: Progressing Goal: LTG - Misc 2 Pt will ambulate 150' w/ minimum assist and appropriate assistive device. Pt will ambulate up/down 4 stairs with mod assist and SARAH rails. Outcome: Progressing Goal: LTG - Misc 3 Pt will propel WC 150' with supervision and extra time. Outcome: Progressing Goal: LTG - Misc 4 Pt will complete SARAH LE HEP x15 reps with supervision. Outcome: Progressing Goal: LTG - Misc 5 Pt and/or family will verbalize and demonstrate understanding of pt's safety and mobility needs upon discharge. Outcome: Progressing * Plan of Care - Neetu Schmitt RN - 11/02/2017 3:05 PM CDT Nutritional: ??? Dietary intake will improve Not Progressing ??? Ability to maintain a balanced intake and output will improve Not Progressing Activity: ??? Mobility will improve Progressing Bladder/Voiding ??? LTG - Patient will achieve acceptable level of continence Progressing ??? STG - Patient demonstrates no accidents Progressing Bowel Elimination ??? LTG - Patient will have regular and routine bowel evacuation Progressing ??? LTG - Patient will complete bowel elimination Progressing ??? STG - Patient maintains skin integrity Progressing ??? STG - Patient will verbalize signs and symptoms of constipation and how to prevent/alleviate Progressing ??? STG - Patient will be continent of stool Progressing ??? STG - Patient verbalizes knowledge about relationship between diet, fluid intake, activity and medication on constipation Progressing Health Behavior: ??? Understanding of discharge needs will improve Progressing Lack of Knowledge: ??? Ability to state ways to decrease the risk of falls will improve Progressing Lack of Knowledge: ??? Understanding of ways to prevent future skin breakdown will improve Progressing ??? Ability to identify appropriate dietary choices will improve Progressing Safety: ??? Will remain free from falls Progressing ??? Will remain free from injury from falls Progressing ??? Will remain free from falls and injury in home environment Progressing Skin Integrity: ??? Risk for impaired skin integrity will decrease Progressing ??? Ability to demonstrate warm and dry skin will improve Progressing ??? Circulation will improve to fullest extent possible Progressing Goals: Clinical Goals for the Shift: pt to remain free of falls, pt to have tolerable pain level, pt to befree of nausea Summary: pt A&Ox4, garbled speech, c/o of pain to back, taking oxycodone, baclofen and tylenol,pt vomitted X3 today, taking zofran, vomitting after meals and pills, MD aware. * Plan of Care - Josefa Hardwick OT - 11/02/2017 7:37 AM CDT Problem: OT Misc Goal: LTG - Misc 1 Pt to dress modified IND Outcome: Progressing Goal: LTG - Misc 2 Pt to groom modified IND Outcome: Progressing Goal: LTG - Misc 3 Pt to bathe with transfer modified IND Outcome: Progressing Goal: LTG - Misc 4 Pt to toilet with transfer modified IND Outcome: Progressing Goal: LTG - Misc 5 Pt to complete UE HEP with IND to promote IND with self care and functional transfers Outcome: Progressing * Plan of Care - Raven Camejo RN - 11/02/2017 3:54 AM CDT Activity: ??? Mobility will improve Progressing Bladder/Voiding ??? LTG - Patient will achieve acceptable level of continence Progressing ??? STG - Patient demonstrates no accidents Progressing Bowel Elimination ??? LTG - Patient will have regular and routine bowel evacuation Progressing ??? LTG - Patient will complete bowel elimination Progressing ??? STG - Patient maintains skin integrity Progressing ??? STG - Patient will verbalize signs and symptoms of constipation and how to prevent/alleviate Progressing ??? STG - Patient will be continent of stool Progressing ??? STG - Patient verbalizes knowledge about relationship between diet, fluid intake, activity and medication on constipation Progressing Health Behavior: ??? Understanding of discharge needs will improve Progressing Lack of Knowledge: ??? Ability to state ways to decrease the risk of falls will improve Progressing Lack of Knowledge: ??? Understanding of ways to prevent future skin breakdown will improve Progressing ??? Ability to identify appropriate dietary choices will improve Progressing Nutritional: ??? Dietary intake will improve Progressing ??? Ability to maintain a balanced intake and output will improve Progressing Safety: ??? Will remain free from falls Progressing ??? Will remain free from injury from falls Progressing ??? Will remain free from falls and injury in home environment Progressing Skin Integrity: ??? Risk for impaired skin integrity will decrease Progressing ??? Ability to demonstrate warm and dry skin will improve Progressing ??? Circulation will improve to fullest extent possible Progressing Goals: Clinical Goals for the Shift: Patient will be free from injury, have tolerable pain level, and no further skin breakdown. Summary: Patient resting in bed. Took prn oxyicodone for pain during shift. Turning every 2 hours while in bed with staff assisting. Continent of bladder. Wearing BIPAP at night. No acute changes noted. * Plan of Care - Kateryna Lunsford, PT - 11/01/2017 6:32 PM CDT Problem: PT Misc Goal: LTG - Misc 1 Pt will roll SARAH and supine<-->sit EOB with supervision and bedrails as needed. Pt will sit<-->stand with minimum assist and appropriate assistive device. Pt will transfer bed<-->wheelchair/chair with minimum assist and appropriate assistive device. Outcome: Progressing Goal: LTG - Misc 2 Pt will ambulate 150' w/ minimum assist and appropriate assistive device. Pt will ambulate up/down 4 stairs with mod assist and SARAH rails. Outcome: Progressing Goal: LTG - Misc 3 Pt will propel WC 150' with supervision and extra time. Outcome: Progressing Goal: LTG - Misc 4 Pt will complete SARAH LE HEP x15 reps with supervision. Outcome: Progressing Goal: LTG - Misc 5 Pt and/or family will verbalize and demonstrate understanding of pt's safety and mobility needs upon discharge. Outcome: Progressing * Patient Care Conference - Lucie Elizabeth - 11/01/2017 4:19 PM CDT Inpatient RehabilitationTeam Conference Note Date: 11/01/2017 Time: 4:19 PM Patient Name: José Miguel Jang Date of : 1950 Sex: Male Room/Bed: [place] [address] Admitting Diagnosis: ACUTE RESPIRATORY FAILURE, UNSP W HYPOXIA OR HYPERCAPNIA Admit Date/Time: 10/24/2017 6:32 PM Admission Comments: No comment available Rehab Diagnosis:Rehab Diagnosis: Respiratory Failure Vitals: 11/01/17 0911 BP: 101/62 Pulse: 85 Resp: Temp: SpO2: Weight /Nutrition Weight: 93 kg (205 lb 0.4 oz) Weight change: Food consistency: Liquid consistency: Bladder and Bowel Accidents/Last BM Unmeasured Stool Occurrence 1 at 11/01 0501 1 at 10/31 1550 1 at 10/30 0405 1 at 10/25 1999 Urinary Incontinence No at 11/01 0911 No at 11/01 1999 (Comment: sometimes spills urinal) Yes at 10/31 1550 No at 10/31 0812 No at 10/30 2100 (Comment: sometimes spills urinal) No at 10/29 2100 (Comment: sometimes spills urinal) No at 10/28 2009 No at 10/28 0650 No at 10/27 2204 No at 10/27 1915 No at 10/26 0830 No at 10/25 2300 No at 10/250 No at 10/25 1214 No at 10/25 1999 Bowel Incontinence Yes at 11/01 0501 Yes at 11/01 1999 Yes at 10/31 1550 No at 10/25 2200 No at 10/25 1999 Toileting: Level of assistance Total at 10/25 08 Toileting: Assistance with -- at 11/01 0800 (Comment: incontinent of bowel) -- at 10/25 0800 (Comment: all) Pressure Ulcers No matching active lines, drains, or airways Patient Active Problem List Diagnosis Date Noted ??? Hyponatremia 10/27/2017 ??? Former smoker 10/25/2017 ??? COPD (chronic obstructive pulmonary disease[place] [place] 10/25/2017 ??? Hypercapnic respiratory failure ([facility] [place] 10/25/2017 ??? Diskitis 10/25/2017 ??? Pneumonia 10/25/2017 ??? Chronic atrial fibrillation ([facility] [place] 02/22/2017 Conference Led by: (Physician Name, Credentials and Specialty): Rachna Burt MD Team Members Present: Physician Superintendent Maintenance [employer]: Rachna Burt MD Nursing Superintendent Maintenance Air[employer]: Agustin Das RN (Ivana Arechiga RN) Social Work Superintendent Maintenance [employer]: (Jose Alberto SANCHEZ) PT Superintendent [employer]: Kateryna Lunsford PT OT Superintendent Maintenance [employer]: Josefa Hardwick OT TOWING [employer] Superintendent Maintenance Airports: (Christina OLIVARES) Patient/Family Present: Patient Present: No Patient's Family Present: No Treatment Goals: Multi-Disciplinary Problems Active Problems Problem: Health Behavior: Start Date: 10/24/17 Goal Start Date End Date Understanding of discharge needs will improve 10/24/17 -- Goal Intervention Frequency Start Date End Date Discuss information regarding discharge instructions -- 10/24/17 -- Goal Intervention Frequency Start Date End Date Identify discharge learning needs (meds, wound care, etc) -- 10/24/17 -- Goal Intervention Frequency Start Date End Date Collaborate with case management -- 10/24/17 -- Intervention Details: (Coordinate discharge planning if the patient needs post- hospital services onphysician order or complex needs related to functional status, cognitive ability, or social supportsystem) Goal Intervention Frequency Start Date End Date Arrange for needed discharge resources and transportation as appropriate -- 10/24/17 -- Goal Intervention Frequency Start Date End Date Identify discharge barriers -- 10/24/17 -- Goal Intervention Frequency Start Date End Date Collaborate with spanish interpreter -- 10/24/17 -- Problem: Lack of Knowledge: Start Date: 10/25/17 Goal Start Date End Date Ability to state ways to decrease the risk of falls will improve 10/25/17 -- Goal Intervention Frequency Start Date End Date Teach fall prevention measures -- 10/25/17 -- Goal Intervention Frequency Start Date End Date Teach information regarding appropriate environmental changes -- 10/25/17 -- Problem: Safety: Start Date: 10/25/17 Goal Start Date End Date Will remain free from falls 10/25/17 -- Goal Intervention Frequency Start Date End Date Assess risk factors for falls -- 10/25/17 -- Intervention Details: (including medications) Goal Intervention Frequency Start Date End Date Implement fall prevention measures -- 10/25/17 -- Goal Intervention Frequency Start Date End Date Collaborate with other disciplines -- 10/25/17 -- Intervention Details: (PT, OT, Pharmacy, MD, etc.) Goal Start Date End Date Will remain free from injury from falls 10/25/17 -- Goal Intervention Frequency Start Date End Date Provide safe environment for conduction of activities of daily living -- 10/25/17 -- Goal Start Date End Date Will remain free from falls and injury in home environment 10/25/17 -- Goal Intervention Frequency Start Date End Date Assess environmental risk factors -- 10/25/17 -- Problem: Activity: Start Date: 10/25/17 Goal Start Date End Date Mobility will improve 10/25/17 -- Goal Intervention Frequency Start Date End Date Encourage mobilization to extent of ability -- 10/25/17 -- Goal Intervention Frequency Start Date End Date Perform repositioning -- 10/25/17 -- Goal Intervention Frequency Start Date End Date Collaborate with physical therapy -- 10/25/17 -- Problem: Lack of Knowledge: Start Date: 10/25/17 Goal Start Date End Date Understanding of ways to prevent future skin breakdown will improve 10/25/17 -- Goal Intervention Frequency Start Date End Date Discuss precautions to protect skin integrity -- 10/25/17 -- Goal Intervention Frequency Start Date End Date Discuss treatment plan for related conditions -- 10/25/17 -- Goal Start Date End Date Ability to identify appropriate dietary choices will improve 10/25/17 -- Goal Intervention Frequency Start Date End Date Discuss dietary adjustments -- 10/25/17 -- Problem: Nutritional: Start Date: 10/25/17 Goal Start Date End Date Dietary intake will improve 10/25/17 -- Goal Intervention Frequency Start Date End Date Assess nutritional status -- 10/25/17 -- Goal Intervention Frequency Start Date End Date Collaborate with dietitian -- 10/25/17 -- Goal Intervention Frequency Start Date End Date Assist appropriate dietary choices -- 10/25/17 -- Goal Start Date End Date Ability to maintain a balanced intake and output will improve 10/25/17 -- Goal Intervention Frequency Start Date End Date Assess intake and output -- 10/25/17 -- Problem: Skin Integrity: Start Date: 10/25/17 Goal Start Date End Date Risk for impaired skin integrity will decrease 10/25/17 -- Goal Intervention Frequency Start Date End Date Identify risk factors for impaired skin integrity and/or pressure injuries -- 10/25/17 -- Goal Intervention Frequency Start Date End Date Monitor medication effects -- 10/25/17 -- Goal Intervention Frequency Start Date End Date Implement precautions to protect skin integrity -- 10/25/17 -- Goal Intervention Frequency Start Date End Date Use moisturizing agent to dry skin -- 10/25/17 -- Goal Intervention Frequency Start Date End Date Perform cleansing of skin when soiled -- 10/25/17 -- Goal Intervention Frequency Start Date End Date Provide pressure-relief bed or mattress -- 10/25/17 -- Goal Start Date End Date Ability to demonstrate warm and dry skin will improve 10/25/17 -- Goal Intervention Frequency Start Date End Date Monitor skin integrity, appearance and/or temperature -- 10/25/17 -- Goal Start Date End Date Circulation will improve to fullest extent possible 10/25/17 -- Goal Intervention Frequency Start Date End Date Assess circulation, sensation and/or motion of extremity -- 10/25/17 -- Problem: Bladder/Voiding Start Date: 10/25/17 Goal Start Date End Date LTG - Patient will achieve acceptable level of continence 10/25/17 -- Goal Start Date End Date STG - Patient demonstrates no accidents 10/25/17 -- Goal Intervention Frequency Start Date End Date Encourage toileting PRN 10/25/17 -- Goal Intervention Frequency Start Date End Date Educate patient about medications PRN 10/25/17 -- Problem: Bowel Elimination Start Date: 10/25/17 Goal Start Date End Date LTG - Patient will have regular and routine bowel evacuation 10/25/17 -- Goal Start Date End Date LTG - Patient will complete bowel elimination 10/25/17 -- Goal Start Date End Date STG - Patient maintains skin integrity 10/25/17 -- Goal Intervention Frequency Start Date End Date Educate patient about ostomy appliances, correct application, protection of skin PRN 10/25/17 -- Goal Start Date End Date STG - Patient will verbalize signs and symptoms of constipation and how to prevent/alleviate 10/25/17 -- Goal Intervention Frequency Start Date End Date Encourage use of aids (stool softener, laxative, suppository) PRN 10/25/17 -- Goal Intervention Frequency Start Date End Date Encourage adjustment and monitoring of fluid intake PRN 10/25/17 -- Goal Intervention Frequency Start Date End Date Teach patient about symptoms of impaction PRN 10/25/17 -- Goal Intervention Frequency Start Date End Date Educate patient about effect of fluid intake on bowel movement PRN 10/25/17 -- Goal Intervention Frequency Start Date End Date Educate patient about adequate fluid intake PRN 10/25/17 -- Goal Start Date End Date STG - Patient will be continent of stool 10/25/17 -- Goal Start Date End Date STG - Patient verbalizes knowledge about relationship between diet, fluid intake, activity and medication on constipation 10/25/17 -- Goal Intervention Frequency Start Date End Date Educate patient about medications PRN 10/25/17 -- Goal Intervention Frequency Start Date End Date Educate patient about adequate fluid intake PRN 10/25/17 -- Problem: Breathing Start Date: 10/25/17 Goal Start Date End Date STG - Respiratory rate and effort will be within normal limits for the patient 10/25/17 -- Goal Intervention Frequency Start Date End Date Provide oxygen therapy as ordered PRN 10/25/17 -- Goal Intervention Frequency Start Date End Date Monitor oygen saturation PRN 10/25/17 -- Goal Intervention Frequency Start Date End Date Encourage incentive spirometer x 10 each hour while awake PRN 10/25/17 -- Goal Intervention Frequency Start Date End Date Encourage/perform oral hygiene as appropriate PRN 10/25/17 -- Goal Intervention Frequency Start Date End Date Collaborate with respiratory therapy to administer medications/treatments PRN 10/25/17 -- Goal Start Date End Date STG - Patient/family will be able to verbalize oxygen safety precautions 10/25/17 -- Goal Intervention Frequency Start Date End Date Educate patient about oxygen PRN 10/25/17 -- Goal Start Date End Date STG - Patient will utilize incentive spirometer 10/25/17 -- Goal Intervention Frequency Start Date End Date Encourage incentive spirometer x 10 each hour while awake PRN 10/25/17 -- Goal Intervention Frequency Start Date End Date Encourage use of incentive spirometer PRN 10/25/17 -- Goal Start Date End Date STG - Patient performs or directs assisted coughing 10/25/17 -- Goal Intervention Frequency Start Date End Date Instruct on coughing and deep breathing PRN 10/25/17 -- Goal Intervention Frequency Start Date End Date Educate patient about forced cough PRN 10/25/17 -- Goal Intervention Frequency Start Date End Date Teach patient about assistive cough PRN 10/25/17 -- Problem: Pain Start Date: 10/25/17 Goal Start Date End Date [facility] - Pain is manageable through therapies 10/25/17 -- Goal Start Date End Date STG - Patient will verbalize an acceptable level of pain 10/25/17 -- Problem: OT Misc Start Date: 10/25/17 Goal Start Date End Date [facility] [place] 1 10/25/17 -- Goal Details: Pt to dress modified IND Goal Start Date End Date [facility] [place] [facility] 10/25/17 -- Goal Details: Pt to groom modified IND Goal Start Date End Date [facility] [place] 3 10/25/17 -- Goal Details: Pt to bathe with transfer modified IND Goal Start Date End Date [facility] [place] 4 10/25/17 -- Goal Details: Pt to toilet with transfer modified IND Goal Start Date End Date [facility] [place] 5 10/25/17 -- Goal Details: Pt to complete UE HEP with IND to promote IND with self care and functional transfers Problem: Cognitive: Start Date: 10/25/17 Goal Start Date End Date [facility] 1 10/25/17 -- Goal Details: Patient will execute multiple elements of a task with supervision Goal Start Date End Date [facility] 2 10/25/17 -- Goal Details: Patient will increase problem solving to complete tasks at 90% or with supervision Problem: Physical Regulation: Start Date: 10/25/17 Goal Start Date End Date [facility] 3 10/25/17 -- Goal Details: Patient will increase general strength/coordination through various exercises with supervision until disch Problem: Respiratory: Start Date: 10/25/17 Goal Start Date End Date [facility] 4 10/25/17 -- Goal Details: Patient will maintain/increase SPO2 by 1% in at least one session prior to disch Goal Start Date End Date [facility] 5 10/25/17 -- Goal Details: Patient will increase pulmonary function through various exercises with supervision until disch Problem: PT [facility] [place] Start Date: 10/25/17 Goal Start Date End Date [facility] [place] 1 10/25/17 -- Goal Details: Pt will roll SARAH and supine<-->sit EOB with supervision and bedrails as needed.Pt will sit<-->stand with minimum assist and appropriate assistive device. Pt will transfer bed<-->wheelchair/chair with minimum assist and appropriate assistive device. Goal Start Date End Date [facility] [place] 2 10/25/17 -- Goal Details: Pt will ambulate 150' w/ minimum assist and appropriate assistive device. Pt will ambulate up/down 4 stairs with mod assist and SARAH rails. Goal Start Date End Date [facility] [place] 3 10/25/17 -- Goal Details: Pt will propel WC 150' with supervision and extra time. Goal Start Date End Date [facility] [place] 4 10/25/17 -- Goal Details: Pt will complete SARAH LE HEP x15 reps with supervision. Goal Start Date End Date [facility] [place] 5 10/25/17 -- Goal Details: Pt and/or family will verbalize and demonstrate understanding of pt's safety and mobility needs upon discharge. Current Functional Status: PT Functional Mobility: Pt propels WC 140' x2 w/ supervision and much extra time, sit<-->stand x4 reps in // bars with max assist x2 and SARAH UE support, WC-->mat with max assist x2 via slideboard to right side, seated LE exercises, sit-->supine in SARAH direction with mod assist for SARAH LEs, rolls SARAH with mod assist on mat, supine-->sit on mat with max assist in SARAH directions, supine SARAH LE exercises and stretches, attempted modified pull-ups in sitting/reclined position but pt unable due to LBP, mat-->WC with max assist x1 via sldie board downhill to right side, WC-->bed with total assist x2 via garrett lift. 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 Pt able to stand 4x in // bars with max assist x2, w/ longest stand being approx 30 seconds w/ max assist x2. Pt's arms fatigue a lot also w/ standing, limiting endurance. Pt continues to demonstrate limited AROM with seated and supine LE exercises, needing max assist frequently to gain full ROM with LE exercises.Pt reports right hip pain with PROM into hip flexion for glute stretch, stating his right hip ROM has been limited since ARNALDO in 2005. Pt is max assist for bed mobility and still max-total assist x2 for transfers. Pt expressed LBP with seated exercises and when lying on back. RN notified, pain meds given. Pt is slowly progressing towards goals. Continue per plan of care. OT Functional Mobility: Pt. completes supine to sit max assist and 2 person DEP for sit to stand with manual stand aid. Pt able to assist slightly more when pulling self up in manual sit to stand this date OT Self Care: DEP to minimal assist for self care with 1 to 2 people. Pt using rolling shower chairwith sarah supports and manual stand aid 2 person with LE dressing. Pt demonstrates general decreasedbalance, endurance, strength and sensation. Pt will benefit from continued skilled OT to promote IND toward goals. OT Cognition: Appears WNL OT Communication: decreased vocal strength at times. TOWING PILOT Cognition: WFL TOWING PILOT Communication: WFL TOWING PILOT Swallowing: WFL: Regular consistency with thin liquids, tolerating diet well Caregiver at Discharge: long-term staff Living Setting at Discharge: Additional comments:: (see progress notes) Patient expects to be discharged to:: Private residence Steps: , , Anticipated Discharge Date: 11/10/17 Potential Admissions Representative Needs/Follow-up: Potential Halfway Needs: snf, Anticipated Supervision:24 hour Anticipated Equipment Needs: Wheeled walker,bedside commode,tub bench,shower chair,stand aid,transfer board,railing Strengths to Achieving Rehab Goals: Strengths: Able to tolerate intensive inpatient rehab program, Good family/social support, Good premorbid functional status, Good premorbid medical status, Living in the community premorbidly, Motivated Barriers to Achieving Rehab Goals: Barriers: Home design (decreased mobility,decreased ADL function,pain) Medical Barriers: bowel incontinence,left plank wound Patient and Family Goals: to return home Weekly Team Goals: The team has reassessed the validity of the IRF stay and appropriateness of the goals established. Continue per above plan. Cosigned by Rachna Burt MD at 11/02/2017 3:30 PM CDT * Plan of Care - Josefa Hardwick OT - 11/01/2017 7:39 AM CDT Problem: OT Misc Goal: LTG - Misc 1 Pt to dress modified IND Outcome: Progressing Goal: LTG - Misc 2 Pt to groom modified IND Outcome: Progressing Goal: LTG - Misc 3 Pt to bathe with transfer modified IND Outcome: Progressing Goal: LTG - Misc 4 Pt to toilet with transfer modified IND Outcome: Progressing Goal: LTG - Misc 5 Pt to complete UE HEP with IND to promote IND with self care and functional transfers Outcome: Progressing * Plan of Care - Kelsea Burnette - 11/01/2017 3:54 AM CDT Health Behavior: ??? Understanding of discharge needs will improve Not Progressing Activity: ??? Mobility will improve Progressing Nutritional: ??? Dietary intake will improve Progressing Safety: ??? Will remain free from falls Progressing Goals: Clinical Goals for the Shift: pt will sleep well and will remain free from further skin breakdown Summary: Turning Q2hrs. Continues to have some incontinent stool leakage, cleansing and applying EPC regularly to prevent skin breakdown. Has not c/o any spasms this shift, tylenol controlling pain. Pt sleeping well with Ambien. * Plan of Care - Kateryna Lunsford PT - 10/31/2017 4:43 PM CDT Problem: PT Misc Goal: LTG - Misc 1 Pt will roll SARAH and supine<-->sit EOB with supervision and bedrails as needed. Pt will sit<-->stand with minimum assist and appropriate assistive device. Pt will transfer bed<-->wheelchair/chair with minimum assist and appropriate assistive device. Outcome: Progressing Goal: LTG - Misc 2 Pt will ambulate 150' w/ minimum assist and appropriate assistive device. Pt will ambulate up/down 4 stairs with mod assist and SARAH rails. Outcome: Progressing Goal: LTG - Mis 3 Pt will propel WC 150' with supervision and extra time. Outcome: Progressing Goal: LTG - Mis 4 Pt will complete SARAH LE HEP x15 reps with supervision. Outcome: Progressing Goal: LT - Mis 5 Pt and/or family will verbalize and demonstrate understanding of pt's safety and mobility needs upon discharge. Outcome: Progressing * Plan of Care - Neetu Schmitt RN - 10/31/2017 3:43 PM CDT Bowel Elimination ??? STG - Patient will be continent of stool Not Progressing Activity: ??? Mobility will improve Progressing Bladder/Voiding ??? LTG - Patient will achieve acceptable level of continence Progressing ??? STG - Patient demonstrates no accidents Progressing Bowel Elimination ??? LTG - Patient will have regular and routine bowel evacuation Progressing ??? LTG - Patient will complete bowel elimination Progressing ??? STG - Patient maintains skin integrity Progressing ??? STG - Patient will verbalize signs and symptoms of constipation and how to prevent/alleviate Progressing ??? STG - Patient verbalizes knowledge about relationship between diet, fluid intake, activity and medication on constipation Progressing Health Behavior: ??? Understanding of discharge needs will improve Progressing Lack of Knowledge: ??? Ability to state ways to decrease the risk of falls will improve Progressing Lack of Knowledge: ??? Understanding of ways to prevent future skin breakdown will improve Progressing ??? Ability to identify appropriate dietary choices will improve Progressing Nutritional: ??? Dietary intake will improve Progressing ??? Ability to maintain a balanced intake and output will improve Progressing Safety: ??? Will remain free from falls Progressing ??? Will remain free from injury from falls Progressing Skin Integrity: ??? Risk for impaired skin integrity will decrease Progressing ??? Ability to demonstrate warm and dry skin will improve Progressing ??? Circulation will improve to fullest extent possible Progressing Goals: Clinical Goals for the Shift: pt to be free from falls, keep pain tolerable and work with therapy Summary: patient A&Ox4, up in wheelchair most of day with visitors, worked with therapy some. Having mod c/o of back pain, taking tylenol and oxycodone, using garrett lift for transfers, incontinent of stool, continent of bladder. * Plan of Care - Destiny Burnette COTA - 10/31/2017 11:42 AM CDT Problem: OT Misc Goal: LTG - Misc 1 Pt to dress modified IND Outcome: Progressing Goal: LTG - Misc 2 Pt to groom modified IND Outcome: Progressing Goal: LTG - Misc 3 Pt to bathe with transfer modified IND Outcome: Progressing Goal: LTG - Misc 4 Pt to toilet with transfer modified IND Outcome: Progressing Goal: LTG - Misc 5 Pt to complete UE HEP with IND to promote IND with self care and functional transfers Outcome: Progressing Problem: Cognitive: Goal: STG - Misc 1 Patient will execute multiple elements of a task with supervision Outcome: Progressing * Plan of Care - Kelsea Burnette - 10/31/2017 3:23 AM CDT Safety: ??? Will remain free from falls Not Progressing Activity: ??? Mobility will improve Progressing Health Behavior: ??? Understanding of discharge needs will improve Progressing Nutritional: ??? Dietary intake will improve Progressing Goals: Clinical Goals for the Shift: pt will sleep well and will remain free from further skin breakdown Summary: Pt incontinent of loose stool; turning Q2hrs, cleaning regularly, EPC to buttock, miconazole to groin, taking ambien for sleep, which is helping. Taking tylenol HS for back pain, which helps. * Plan of Care - Bell Kirkpatrick, PT - 10/30/2017 4:29 PM CDT Problem: PT Misc Goal: LTG - Misc 1 Pt will roll SARAH and supine<-->sit EOB with supervision and bedrails as needed. Pt will sit<-->stand with minimum assist and appropriate assistive device. Pt will transfer bed<-->wheelchair/chair with minimum assist and appropriate assistive device. Outcome: Progressing Goal: LTG - Misc 2 Pt will ambulate 150' w/ minimum assist and appropriate assistive device. Pt will ambulate up/down 4 stairs with mod assist and SARAH rails. Outcome: Progressing Goal: LTG - Misc 3 Pt will propel WC 150' with supervision and extra time. Outcome: Progressing Goal: LTG - Misc 4 Pt will complete SARAH LE HEP x15 reps with supervision. Outcome: Progressing Goal: LTG - Misc 5 Pt and/or family will verbalize and demonstrate understanding of pt's safety and mobility needs upon discharge. Outcome: Progressing * Plan of Care - Destiny Burnette COTA - 10/30/2017 2:34 PM CDT Problem: OT Misc Goal: LTG - Misc 1 Pt to dress modified IND Outcome: Progressing Goal: LTG - Misc 2 Pt to groom modified IND Outcome: Progressing Goal: LTG - Misc 3 Pt to bathe with transfer modified IND Outcome: Progressing Goal: LTG - Misc 4 Pt to toilet with transfer modified IND Outcome: Progressing Goal: LTG - Misc 5 Pt to complete UE HEP with IND to promote IND with self care and functional transfers Outcome: Progressing Problem: Cognitive: Goal: STG - Misc 1 Patient will execute multiple elements of a task with supervision Outcome: Progressing Goal: STG - Misc 2 Patient will increase problem solving to complete tasks at 90% or with supervision Outcome: Progressing Problem: Physical Regulation: Goal: STG - Misc 3 Patient will increase general strength/coordination through various exercises with supervision until disch Outcome: Progressing * Plan of Care - Neena Jackson RN - 10/30/2017 1:50 PM CDT Goals: Activity: ??? Mobility will improve Progressing Bladder/Voiding ??? LTG - Patient will achieve acceptable level of continence Progressing ??? STG - Patient demonstrates no accidents Progressing Bowel Elimination ??? LTG - Patient will have regular and routine bowel evacuation Progressing ??? LTG - Patient will complete bowel elimination Progressing ??? STG - Patient maintains skin integrity Progressing ??? STG - Patient will verbalize signs and symptoms of constipation and how to prevent/alleviate Progressing ??? STG - Patient will be continent of stool Progressing ??? STG - Patient verbalizes knowledge about relationship between diet, fluid intake, activity and medication on constipation Progressing Health Behavior: ??? Understanding of discharge needs will improve Progressing Lack of Knowledge: ??? Ability to state ways to decrease the risk of falls will improve Progressing Lack of Knowledge: ??? Understanding of ways to prevent future skin breakdown will improve Progressing ??? Ability to identify appropriate dietary choices will improve Progressing Nutritional: ??? Dietary intake will improve Progressing ??? Ability to maintain a balanced intake and output will improve Progressing Safety: ??? Will remain free from falls Progressing ??? Will remain free from injury from falls Progressing ??? Will remain free from falls and injury in home environment Progressing Skin Integrity: ??? Risk for impaired skin integrity will decrease Progressing ??? Ability to demonstrate warm and dry skin will improve Progressing ??? Circulation will improve to fullest extent possible Progressing Summary: Patient working with therapy and reporting pain is better than yesterday. Lost his partialdenture but found by daron. * Plan of Care - Neena Jackson RN - 10/29/2017 11:16 AM CDT Goals: Activity: ??? Mobility will improve Progressing Bladder/Voiding ??? LTG - Patient will achieve acceptable level of continence Progressing ??? STG - Patient demonstrates no accidents Progressing Bowel Elimination ??? LTG - Patient will have regular and routine bowel evacuation Progressing ??? LTG - Patient will complete bowel elimination Progressing ??? STG - Patient maintains skin integrity Progressing ??? STG - Patient will verbalize signs and symptoms of constipation and how to prevent/alleviate Progressing ??? STG - Patient will be continent of stool Progressing ??? STG - Patient verbalizes knowledge about relationship between diet, fluid intake, activity and medication on constipation Progressing Health Behavior: ??? Understanding of discharge needs will improve Progressing Lack of Knowledge: ??? Ability to state ways to decrease the risk of falls will improve Progressing Lack of Knowledge: ??? Understanding of ways to prevent future skin breakdown will improve Progressing ??? Ability to identify appropriate dietary choices will improve Progressing Nutritional: ??? Dietary intake will improve Progressing ??? Ability to maintain a balanced intake and output will improve Progressing Safety: ??? Will remain free from falls Progressing ??? Will remain free from injury from falls Progressing ??? Will remain free from falls and injury in home environment Progressing Skin Integrity: ??? Risk for impaired skin integrity will decrease Progressing ??? Ability to demonstrate warm and dry skin will improve Progressing ??? Circulation will improve to fullest extent possible Progressing Clinical Goals for the Shift: No therapy today; decrease pain and edema through positioning and medications Summary: Patient having more pain today than yesterday and did not sleep well last night. Lidocainepatch ordered for back and discussed pain management and positioning techniques; discussed sleepingpills for Tonight. * Plan of Care - Loretta Lemus RN - 10/29/2017 2:28 AM CDT Activity: ??? Mobility will improve Progressing Bladder/Voiding ??? LTG - Patient will achieve acceptable level of continence Progressing ??? STG - Patient demonstrates no accidents Progressing Bowel Elimination ??? LTG - Patient will have regular and routine bowel evacuation Progressing ??? LTG - Patient will complete bowel elimination Progressing ??? STG - Patient maintains skin integrity Progressing ??? STG - Patient will verbalize signs and symptoms of constipation and how to prevent/alleviate Progressing ??? STG - Patient will be continent of stool Progressing ??? STG - Patient verbalizes knowledge about relationship between diet, fluid intake, activity and medication on constipation Progressing Health Behavior: ??? Understanding of discharge needs will improve Progressing Lack of Knowledge: ??? Ability to state ways to decrease the risk of falls will improve Progressing Lack of Knowledge: ??? Understanding of ways to prevent future skin breakdown will improve Progressing ??? Ability to identify appropriate dietary choices will improve Progressing Nutritional: ??? Dietary intake will improve Progressing ??? Ability to maintain a balanced intake and output will improve Progressing Safety: ??? Will remain free from falls Progressing ??? Will remain free from injury from falls Progressing ??? Will remain free from falls and injury in home environment Progressing Skin Integrity: ??? Risk for impaired skin integrity will decrease Progressing ??? Ability to demonstrate warm and dry skin will improve Progressing ??? Circulation will improve to fullest extent possible Progressing Goals: Clinical Goals for the Shift: Work with therapy, call RN for pain; work on strength Summary: * Plan of Care - Brenden Pathak LCSW - 10/28/2017 3:41 PM CDT José Miguel and his are aware that per [facility] if pt needs a bipap at home that he could potentially qualify without a sleep study if he needs it for copd. Sw will follow. * Plan of Care - Neena Jackson RN - 10/28/2017 2:42 PM CDT Goals: Activity: ??? Mobility will improve Progressing Bladder/Voiding ??? LTG - Patient will achieve acceptable level of continence Progressing ??? STG - Patient demonstrates no accidents Progressing Bowel Elimination ??? LTG - Patient will have regular and routine bowel evacuation Progressing ??? LTG - Patient will complete bowel elimination Progressing ??? STG - Patient maintains skin integrity Progressing ??? STG - Patient will verbalize signs and symptoms of constipation and how to prevent/alleviate Progressing ??? STG - Patient will be continent of stool Progressing ??? STG - Patient verbalizes knowledge about relationship between diet, fluid intake, activity and medication on constipation Progressing Health Behavior: ??? Understanding of discharge needs will improve Progressing Lack of Knowledge: ??? Ability to state ways to decrease the risk of falls will improve Progressing Lack of Knowledge: ??? Understanding of ways to prevent future skin breakdown will improve Progressing ??? Ability to identify appropriate dietary choices will improve Progressing Nutritional: ??? Dietary intake will improve Progressing ??? Ability to maintain a balanced intake and output will improve Progressing Safety: ??? Will remain free from falls Progressing ??? Will remain free from injury from falls Progressing ??? Will remain free from falls and injury in home environment Progressing Skin Integrity: ??? Risk for impaired skin integrity will decrease Progressing ??? Ability to demonstrate warm and dry skin will improve Progressing ??? Circulation will improve to fullest extent possible Progressing Clinical Goals for the Shift: Work with therapy, call RN for pain; work on strength Summary: Patient sitting up in chair throughout the day, no complaints or needs. Waiting on Nokori game to come on. * Plan of Care - Arlyn Guevara PTA - 10/28/2017 2:08 PM CDT Problem: PT Misc Goal: LT - [facility] [place] 1 Pt will roll SARAH and supine<-->sit EOB with supervision and bedrails as needed. Pt will sit<-->stand with minimum assist and appropriate assistive device. Pt will transfer bed<-->wheelchair/chair with minimum assist and appropriate assistive device. Outcome: Progressing Goal: LT - Mis 2 Pt will ambulate 150' w/ minimum assist and appropriate assistive device. Pt will ambulate up/down 4 stairs with mod assist and SARAH rails. Outcome: Progressing Goal: LT - [facility] [place] 3 Pt will propel WC 150' with supervision and extra time. Outcome: Progressing Goal: LT - [facility] [place] 4 Pt will complete SARAH LE HEP x15 reps with supervision. Outcome: Progressing Goal: LT - Misc 5 Pt and/or family will verbalize and demonstrate understanding of pt's safety and mobility needs upon discharge. Outcome: Progressing * Plan of Care - Christina Chakraborty TOWING PILOT - 10/28/2017 11:04 AM CDT Problem: TOWING PILOT Misc Goal: LTG - Misc 1 Patient will tolerate regular consistency with thin liquids without clinical overt s/s of aspiration. Outcome: Completed Date Met: 10/28/17 Tolerating regular consistency solids with thin liquids well, no s/s of aspiration noted. * Plan of Care - Josefa Hardwick OT - 10/28/2017 7:30 AM CDT Problem: OT Misc Goal: LTG - Misc 1 Pt to dress modified IND Outcome: Progressing Goal: LTG - Misc 2 Pt to groom modified IND Outcome: Progressing Goal: LTG - Misc 3 Pt to bathe with transfer modified IND Outcome: Progressing Goal: LTG - Misc 4 Pt to toilet with transfer modified IND Outcome: Progressing Goal: LTG - Misc 5 Pt to complete UE HEP with IND to promote IND with self care and functional transfers Outcome: Progressing * Plan of Care - Kateryna Lunsford, PT - 10/27/2017 5:06 PM CDT Problem: PT Misc Goal: LTG - Misc 1 Pt will roll SARAH and supine<-->sit EOB with supervision and bedrails as needed. Pt will sit<-->stand with minimum assist and appropriate assistive device. Pt will transfer bed<-->wheelchair/chair with minimum assist and appropriate assistive device. Outcome: Progressing Goal: LTG - Misc 2 Pt will ambulate 150' w/ minimum assist and appropriate assistive device. Pt will ambulate up/down 4 stairs with mod assist and SARAH rails. Outcome: Progressing Goal: LTG - Mis 3 Pt will propel WC 150' with supervision and extra time. Outcome: Progressing Goal: LT - Mis 4 Pt will complete SARAH LE HEP x15 reps with supervision. Outcome: Progressing Goal: LT - Mis 5 Pt and/or family will verbalize and demonstrate understanding of pt's safety and mobility needs upon discharge. Outcome: Progressing * Plan of Care - Christina Chakraborty SLP - 10/27/2017 2:44 PM CDT Problem: TOWING PILOT Misc Goal: LTG - Mis 1 Patient will tolerate regular consistency with thin liquids without clinical overt s/s of aspiration. Outcome: Progressing Upgraded to regular consistency with thin liquids today Goal: LT - [facility] [place] 2 Patient will complete 3 sets of 10 pharyngeal strengthening exercises Outcome: Progressing * Assessment & Plan Note - Александр Espino Jr., MD - 10/27/2017 7:57 AM CDT Associated Problem(s): Hyponatremia Hyponatremia, resolved. Suspect dilutional. Monitor renal function with diuresis. Still with some edema on exam. * Plan of Care - Josefa Hardwick OT - 10/27/2017 7:51 AM CDT Problem: OT Misc Goal: LTG - Misc 1 Pt to dress modified IND Outcome: Progressing Goal: LTG - Misc 2 Pt to groom modified IND Outcome: Progressing Goal: LTG - Misc 3 Pt to bathe with transfer modified IND Outcome: Progressing Goal: LTG - Misc 4 Pt to toilet with transfer modified IND Outcome: Progressing Goal: LTG - Misc 5 Pt to complete UE HEP with IND to promote IND with self care and functional transfers Outcome: Progressing * Plan of Care - Katheryn Martínez RN - 10/27/2017 4:34 AM CDT Activity: ??? Mobility will improve Progressing Health Behavior: ??? Understanding of discharge needs will improve Progressing Lack of Knowledge: ??? Ability to state ways to decrease the risk of falls will improve Progressing Lack of Knowledge: ??? Understanding of ways to prevent future skin breakdown will improve Progressing ??? Ability to identify appropriate dietary choices will improve Progressing Nutritional: ??? Dietary intake will improve Progressing ??? Ability to maintain a balanced intake and output will improve Progressing Safety: ??? Will remain free from falls Progressing ??? Will remain free from injury from falls Progressing Skin Integrity: ??? Risk for impaired skin integrity will decrease Progressing ??? Ability to demonstrate warm and dry skin will improve Progressing ??? Circulation will improve to fullest extent possible Progressing Goals: Pt will remain free from falls. Summary: Sleeping well, no complaints at this time. * Plan of Care - Kateryna Lunsford, PT - 10/26/2017 6:28 PM CDT Problem: PT Misc Goal: LTG - Misc 1 Pt will roll SARAH and supine<-->sit EOB with supervision and bedrails as needed. Pt will sit<-->stand with minimum assist and appropriate assistive device. Pt will transfer bed<-->wheelchair/chair with minimum assist and appropriate assistive device. Outcome: Progressing Goal: LTG - Mis 2 Pt will ambulate 150' w/ minimum assist and appropriate assistive device. Pt will ambulate up/down 4 stairs with mod assist and SARAH rails. Outcome: Progressing Goal: LTG - Mis 3 Pt will propel WC 150' with supervision and extra time. Outcome: Progressing Goal: LTG - Mis 4 Pt will complete SARAH LE HEP x15 reps with supervision. Outcome: Progressing Goal: LT - [facility] [place] 5 Pt and/or family will verbalize and demonstrate understanding of pt's safety and mobility needs upon discharge. Outcome: Progressing * Plan of Care - Rocío Murguia RN - 10/26/2017 3:25 PM CDT Activity: ??? Mobility will improve Progressing Health Behavior: ??? Understanding of discharge needs will improve Progressing Lack of Knowledge: ??? Ability to state ways to decrease the risk of falls will improve Progressing Lack of Knowledge: ??? Understanding of ways to prevent future skin breakdown will improve Progressing ??? Ability to identify appropriate dietary choices will improve Progressing Nutritional: ??? Dietary intake will improve Progressing ??? Ability to maintain a balanced intake and output will improve Progressing Safety: ??? Will remain free from falls Progressing ??? Will remain free from injury from falls Progressing ??? Will remain free from falls and injury in home environment Progressing Skin Integrity: ??? Risk for impaired skin integrity will decrease Progressing ??? Ability to demonstrate warm and dry skin will improve Progressing ??? Circulation will improve to fullest extent possible Progressing Goals: Clinical Goals for the Shift: comfort, safety, therapy Summary: VSS. NAD. Tolerating therapy well. Will continue to monitor. * Plan of Care - Rachna Burt MD - 10/26/2017 10:21 AM CDT [facility] NAME: JOSÉ MIGUEL JANG AGE: 66 y.o. : 1950 Date of Note: 10/26/2017 Room/Bed: [id number] Admit: 10/24/2017 6:32 PM [facility] Physician Initial Individualized Interdisciplinary 4 Day Plan Of Care Chief Complaint: Debility Rehab Impairment Code: Impairment Code Group: Debility Date of onset: Date of Onset: 07/29/17 Date of admission: 10/24/2017 REHABILITATION DIAGNOSIS: Rehab Diagnosis: Respiratory Failure Current Functional Status: PT Functional Mobility: WC-->mat via slide board with max assist x1, seated hamstring stretches x3 SARAH LE, further assessment of objective measures, seated dynamic balance activities including resisted isometrics, reaching w/ SARAH UEs, and lowering down on propped elbow and pushing back up to midline SARAH UEs x3 reps, transfers mat-->WC with max assist x1 via slide board downhill. Both slide board transfers performed to pt's right (stronger) side. Pt tolerated hamstring stretches w/ mild discomfort. Pt cannot significantly assist with slide board transfers, needing max-total assist at this time, unable to advance legs or unweight his bottom to scoot, despite functional UE strength. Pt demonstrates decreased dynamic sitting balance with reaching and resisted isometrics activities, and becomes fatigued and SOB easily with exertion in seated position, needing rest breaks. Pt's Francia present for PM session. Pt and educated on current functional mobility and expected plan of care for future sessions. Continue per plan of care. OT Functional Mobility: Pt. completes supine to sit max assist and 2 person DEP for sit to stand with manual stand aid OT Self Care: DEP to minimal assist for self care with 1 to 2 people. Pt using rolling shower chairwith sarah supports and manual stand aid 2 person with LE dressing. Pt demonstrates general decreasedbalance, endurance, strength and sensation. Pt will benefit from continued skilled OT to promote IND toward goals. OT Cognition: Appears WNL OT Communication: decreased vocal strength at times. TOWING PILOT Cognition: WFL TOWING PILOT Communication: WFL TOWING PILOT Swallowing: Mild: Mechanical soft consistency with thin liquids Prognosis:Medical and Functional Prognosis: Good Plan Of Care Discharge Plan: Anticipated destination post discharge from inpatient rehab: community discharge with assist Discharge Plan after IRF stay: Return home with and adult son Anticipated Discharge Date/Estimated Length of Stay/Duration of Rehabilitation: Estimated Length ofStay: 14 days CURRENT MEDICAL DIAGNOSES: Active Problems: Chronic atrial fibrillation ([facility]) Former smoker COPD (chronic obstructive pulmonary disease) ([facility]) Hypercapnic respiratory failure ([facility]) Diskitis Pneumonia The following is a list of patient problems that have been identified by the interdisciplinary team: Multi-Disciplinary Problems Active Problems Problem: Health Behavior: Start Date: 10/24/17 Goal Start Date End Date Understanding of discharge needs will improve 10/24/17 -- Goal Intervention Frequency Start Date End Date Discuss information regarding discharge instructions -- 10/24/17 -- Goal Intervention Frequency Start Date End Date Identify discharge learning needs (meds, wound care, etc) -- 10/24/17 -- Goal Intervention Frequency Start Date End Date Collaborate with case management -- 10/24/17 -- Intervention Details: (Coordinate discharge planning if the patient needs post- hospital services onphysician order or complex needs related to functional status, cognitive ability, or social supportsystem) Goal Intervention Frequency Start Date End Date Arrange for needed discharge resources and transportation as appropriate -- 10/24/17 -- Goal Intervention Frequency Start Date End Date Identify discharge barriers -- 10/24/17 -- Goal Intervention Frequency Start Date End Date Collaborate with spanish interpreter -- 10/24/17 -- Problem: Lack of Knowledge: Start Date: 10/25/17 Goal Start Date End Date Ability to state ways to decrease the risk of falls will improve 10/25/17 -- Goal Intervention Frequency Start Date End Date Teach fall prevention measures -- 10/25/17 -- Goal Intervention Frequency Start Date End Date Teach information regarding appropriate environmental changes -- 10/25/17 -- Problem: Safety: Start Date: 10/25/17 Goal Start Date End Date Will remain free from falls 10/25/17 -- Goal Intervention Frequency Start Date End Date Assess risk factors for falls -- 10/25/17 -- Intervention Details: (including medications) Goal Intervention Frequency Start Date End Date Implement fall prevention measures -- 10/25/17 -- Goal Intervention Frequency Start Date End Date Collaborate with other disciplines -- 10/25/17 -- Intervention Details: (PT, OT, Pharmacy, MD, etc.) Goal Start Date End Date Will remain free from injury from falls 10/25/17 -- Goal Intervention Frequency Start Date End Date Provide safe environment for conduction of activities of daily living -- 10/25/17 -- Goal Start Date End Date Will remain free from falls and injury in home environment 10/25/17 -- Goal Intervention Frequency Start Date End Date Assess environmental risk factors -- 10/25/17 -- Problem: Activity: Start Date: 10/25/17 Goal Start Date End Date Mobility will improve 10/25/17 -- Goal Intervention Frequency Start Date End Date Encourage mobilization to extent of ability -- 10/25/17 -- Goal Intervention Frequency Start Date End Date Perform repositioning -- 10/25/17 -- Goal Intervention Frequency Start Date End Date Collaborate with physical therapy -- 10/25/17 -- Problem: Lack of Knowledge: Start Date: 10/25/17 Goal Start Date End Date Understanding of ways to prevent future skin breakdown will improve 10/25/17 -- Goal Intervention Frequency Start Date End Date Discuss precautions to protect skin integrity -- 10/25/17 -- Goal Intervention Frequency Start Date End Date Discuss treatment plan for related conditions -- 10/25/17 -- Goal Start Date End Date Ability to identify appropriate dietary choices will improve 10/25/17 -- Goal Intervention Frequency Start Date End Date Discuss dietary adjustments -- 10/25/17 -- Problem: Nutritional: Start Date: 10/25/17 Goal Start Date End Date Dietary intake will improve 10/25/17 -- Goal Intervention Frequency Start Date End Date Assess nutritional status -- 10/25/17 -- Goal Intervention Frequency Start Date End Date Collaborate with dietitian -- 10/25/17 -- Goal Intervention Frequency Start Date End Date Assist appropriate dietary choices -- 10/25/17 -- Goal Start Date End Date Ability to maintain a balanced intake and output will improve 10/25/17 -- Goal Intervention Frequency Start Date End Date Assess intake and output -- 10/25/17 -- Problem: Skin Integrity: Start Date: 10/25/17 Goal Start Date End Date Risk for impaired skin integrity will decrease 10/25/17 -- Goal Intervention Frequency Start Date End Date Identify risk factors for impaired skin integrity and/or pressure injuries -- 10/25/17 -- Goal Intervention Frequency Start Date End Date Monitor medication effects -- 10/25/17 -- Goal Intervention Frequency Start Date End Date Implement precautions to protect skin integrity -- 10/25/17 -- Goal Intervention Frequency Start Date End Date Use moisturizing agent to dry skin -- 10/25/17 -- Goal Intervention Frequency Start Date End Date Perform cleansing of skin when soiled -- 10/25/17 -- Goal Intervention Frequency Start Date End Date Provide pressure-relief bed or mattress -- 10/25/17 -- Goal Start Date End Date Ability to demonstrate warm and dry skin will improve 10/25/17 -- Goal Intervention Frequency Start Date End Date Monitor skin integrity, appearance and/or temperature -- 10/25/17 -- Goal Start Date End Date Circulation will improve to fullest extent possible 10/25/17 -- Goal Intervention Frequency Start Date End Date Assess circulation, sensation and/or motion of extremity -- 10/25/17 -- Problem: Bladder/Voiding Start Date: 10/25/17 Goal Start Date End Date LTG - Patient will achieve acceptable level of continence 10/25/17 -- Goal Start Date End Date STG - Patient demonstrates no accidents 10/25/17 -- Goal Intervention Frequency Start Date End Date Encourage toileting PRN 10/25/17 -- Goal Intervention Frequency Start Date End Date Educate patient about medications PRN 10/25/17 -- Problem: Bowel Elimination Start Date: 10/25/17 Goal Start Date End Date LTG - Patient will have regular and routine bowel evacuation 10/25/17 -- Goal Start Date End Date LTG - Patient will complete bowel elimination 10/25/17 -- Goal Start Date End Date STG - Patient maintains skin integrity 10/25/17 -- Goal Intervention Frequency Start Date End Date Educate patient about ostomy appliances, correct application, protection of skin PRN 10/25/17 -- Goal Start Date End Date STG - Patient will verbalize signs and symptoms of constipation and how to prevent/alleviate 10/25/17 -- Goal Intervention Frequency Start Date End Date Encourage use of aids (stool softener, laxative, suppository) PRN 10/25/17 -- Goal Intervention Frequency Start Date End Date Encourage adjustment and monitoring of fluid intake PRN 10/25/17 -- Goal Intervention Frequency Start Date End Date Teach patient about symptoms of impaction PRN 10/25/17 -- Goal Intervention Frequency Start Date End Date Educate patient about effect of fluid intake on bowel movement PRN 10/25/17 -- Goal Intervention Frequency Start Date End Date Educate patient about adequate fluid intake PRN 10/25/17 -- Goal Start Date End Date STG - Patient will be continent of stool 10/25/17 -- Goal Start Date End Date STG - Patient verbalizes knowledge about relationship between diet, fluid intake, activity and medication on constipation 10/25/17 -- Goal Intervention Frequency Start Date End Date Educate patient about medications PRN 10/25/17 -- Goal Intervention Frequency Start Date End Date Educate patient about adequate fluid intake PRN 10/25/17 -- Problem: Breathing Start Date: 10/25/17 Goal Start Date End Date STG - Respiratory rate and effort will be within normal limits for the patient 10/25/17 -- Goal Intervention Frequency Start Date End Date Provide oxygen therapy as ordered PRN 10/25/17 -- Goal Intervention Frequency Start Date End Date Monitor oygen saturation PRN 10/25/17 -- Goal Intervention Frequency Start Date End Date Encourage incentive spirometer x 10 each hour while awake PRN 10/25/17 -- Goal Intervention Frequency Start Date End Date Encourage/perform oral hygiene as appropriate PRN 10/25/17 -- Goal Intervention Frequency Start Date End Date Collaborate with respiratory therapy to administer medications/treatments PRN 10/25/17 -- Goal Start Date End Date STG - Patient/family will be able to verbalize oxygen safety precautions 10/25/17 -- Goal Intervention Frequency Start Date End Date Educate patient about oxygen PRN 10/25/17 -- Goal Start Date End Date STG - Patient will utilize incentive spirometer 10/25/17 -- Goal Intervention Frequency Start Date End Date Encourage incentive spirometer x 10 each hour while awake PRN 10/25/17 -- Goal Intervention Frequency Start Date End Date Encourage use of incentive spirometer PRN 10/25/17 -- Goal Start Date End Date STG - Patient performs or directs assisted coughing 10/25/17 -- Goal Intervention Frequency Start Date End Date Instruct on coughing and deep breathing PRN 10/25/17 -- Goal Intervention Frequency Start Date End Date Educate patient about forced cough PRN 10/25/17 -- Goal Intervention Frequency Start Date End Date Teach patient about assistive cough PRN 10/25/17 -- Problem: Pain Start Date: 10/25/17 Goal Start Date End Date STG - Pain is manageable through therapies 10/25/17 -- Goal Start Date End Date [facility] Patient will verbalize an acceptable level of pain 10/25/17 -- Problem: OT [facility] [place] Start Date: 10/25/17 Goal Start Date End Date [facility] [place] [facility] 10/25/17 -- Goal Details: Pt to dress modified IND Goal Start Date End Date [facility] [place] 2 10/25/17 -- Goal Details: Pt to groom modified IND Goal Start Date End Date [facility] [place] 3 10/25/17 -- Goal Details: Pt to bathe with transfer modified IND Goal Start Date End Date [facility] [place] 4 10/25/17 -- Goal Details: Pt to toilet with transfer modified IND Goal Start Date End Date [facility] [place] 5 10/25/17 -- Goal Details: Pt to complete UE HEP with IND to promote IND with self care and functional transfers Problem: TOWING PILOT [facility] [place] Start Date: 10/25/17 Goal Start Date End Date [facility] [place] 1 10/25/17 -- Goal Details: Patient will tolerate regular consistency with thin liquids without clinical overt s/s of aspiration. Goal Start Date End Date [facility] [place] 2 10/25/17 -- Goal Details: Patient will complete 3 sets of 10 pharyngeal strengthening exercises Problem: Cognitive: Start Date: 10/25/17 Goal Start Date End Date [facility] 1 10/25/17 -- Goal Details: Patient will execute multiple elements of a task with supervision Goal Start Date End Date [facility] 2 10/25/17 -- Goal Details: Patient will increase problem solving to complete tasks at 90% or with supervision Problem: Physical Regulation: Start Date: 10/25/17 Goal Start Date End Date [facility] 3 10/25/17 -- Goal Details: Patient will increase general strength/coordination through various exercises with supervision until disch Problem: Respiratory: Start Date: 10/25/17 Goal Start Date End Date [facility] 4 10/25/17 -- Goal Details: Patient will maintain/increase SPO2 by 1% in at least one session prior to disch Goal Start Date End Date [facility] 5 10/25/17 -- Goal Details: Patient will increase pulmonary function through various exercises with supervision until disch Problem: PT [facility] [place] Start Date: 10/25/17 Goal Start Date End Date [facility] [place] 10/25/17 -- Goal Details: Pt will roll SARAH and supine<-->sit EOB with supervision and bedrails as needed.Pt will sit<-->stand with minimum assist and appropriate assistive device. Pt will transfer bed<-->wheelchair/chair with minimum assist and appropriate assistive device. Goal Start Date End Date [facility] [place] 2 10/25/17 -- Goal Details: Pt will ambulate 150' w/ minimum assist and appropriate assistive device. Pt will ambulate up/down 4 stairs with mod assist and SARAH rails. Goal Start Date End Date [facility] [place] 3 10/25/17 -- Goal Details: Pt will propel WC 150' with supervision and extra time. Goal Start Date End Date [facility] [place] 4 10/25/17 -- Goal Details: Pt will complete SARAH LE HEP x15 reps with supervision. Goal Start Date End Date [facility] [place] 5 10/25/17 -- Goal Details: Pt and/or family will verbalize and demonstrate understanding of pt's safety and mobility needs upon discharge. Interdisciplinary Team: Therapies required to achieve goals:The patient will benefit from integrated coordination of care from the following interdisciplinary services: Medical Supervision, 24 hours Rehabilitation Nursing, Physical Therapy, Occupational Therapy, Case Management;Respiratory Therapy;Speech Therapy;Social Work;Music Therapy Intensity and Frequency: Expected intensity and frequency of participation in the interdisciplinary rehab program is: 3 hours of therapy 5 days per week Expected intensity and frequency of Physical Therapy (PT): 1 hour per day per day over 5-6 days perweek Expected intensity and frequency of Occupational Therapy (OT): 1 hour per day per day over 5-6 daysper week Expected intensity and frequency of Speech Therapy (TOWING PILOT): 1 hour per day per day over 5-6 days per week The established therapy intensity and frequency noted above may be modified to accommodate individualized patient needs. The patient's overall rehab plan of care will be reevaluated continually during their stay and individualized to focus on areas that need further attention. Rachna Burt MD FAAPMR * Plan of Care - Josefa Hardwick OT - 10/26/2017 7:49 AM CDT Problem: OT Misc Goal: LTG - Misc 1 Pt to dress modified IND Outcome: Progressing Goal: LTG - Misc 2 Pt to groom modified IND Outcome: Progressing Goal: LTG - Misc 3 Pt to bathe with transfer modified IND Outcome: Progressing Goal: LTG - Misc 4 Pt to toilet with transfer modified IND Outcome: Progressing Goal: LTG - Misc 5 Pt to complete UE HEP with IND to promote IND with self care and functional transfers Outcome: Progressing * Plan of Care - Raven Camejo RN - 10/26/2017 3:05 AM CDT Activity: ??? Mobility will improve Progressing Bladder/Voiding ??? LTG - Patient will achieve acceptable level of continence Progressing ??? STG - Patient demonstrates no accidents Progressing Bowel Elimination ??? LTG - Patient will have regular and routine bowel evacuation Progressing ??? LTG - Patient will complete bowel elimination Progressing ??? STG - Patient maintains skin integrity Progressing ??? STG - Patient will verbalize signs and symptoms of constipation and how to prevent/alleviate Progressing ??? STG - Patient will be continent of stool Progressing ??? STG - Patient verbalizes knowledge about relationship between diet, fluid intake, activity and medication on constipation Progressing Health Behavior: ??? Understanding of discharge needs will improve Progressing Lack of Knowledge: ??? Ability to state ways to decrease the risk of falls will improve Progressing Lack of Knowledge: ??? Understanding of ways to prevent future skin breakdown will improve Progressing ??? Ability to identify appropriate dietary choices will improve Progressing Nutritional: ??? Dietary intake will improve Progressing ??? Ability to maintain a balanced intake and output will improve Progressing Safety: ??? Will remain free from falls Progressing ??? Will remain free from injury from falls Progressing ??? Will remain free from falls and injury in home environment Progressing Skin Integrity: ??? Risk for impaired skin integrity will decrease Progressing ??? Ability to demonstrate warm and dry skin will improve Progressing ??? Circulation will improve to fullest extent possible Progressing Goals: Clinical Goals for the Shift: Free of falls, have no pain, wear BIPAP and have good night sleep Summary: Patient sat up in chair during evening and watched baseball game with . Took tylenol for back discomfort. Using urinal during shift and continent. Wearing BIPAP during sleep. No acute distress noted during shift. * Plan of Care - Kateryna Lunsford PT - 10/25/2017 6:57 PM CDT Problem: PT Misc Goal: LTG - Misc 1 Pt will roll SARAH and supine<-->sit EOB with supervision and bedrails as needed. Pt will sit<-->stand with minimum assist and appropriate assistive device. Pt will transfer bed<-->wheelchair/chair with minimum assist and appropriate assistive device. Outcome: Progressing Goal: LTG - Misc 2 Pt will ambulate 150' w/ minimum assist and appropriate assistive device. Pt will ambulate up/down 4 stairs with mod assist and SARAH rails. Outcome: Progressing Goal: LTG - Misc 3 Pt will propel WC 150' with supervision and extra time. Outcome: Progressing Goal: LTG - Misc 4 Pt will complete SARAH LE HEP x15 reps with supervision. Outcome: Progressing Goal: LTG - Misc 5 Pt and/or family will verbalize and demonstrate understanding of pt's safety and mobility needs upon discharge. Outcome: Progressing * Plan of Care - Rocío Murguia RN - 10/25/2017 6:30 PM CDT Activity: ??? Mobility will improve Progressing Bladder/Voiding ??? LTG - Patient will achieve acceptable level of continence Progressing ??? STG - Patient demonstrates no accidents Progressing Bowel Elimination ??? LTG - Patient will have regular and routine bowel evacuation Progressing ??? LTG - Patient will complete bowel elimination Progressing ??? STG - Patient maintains skin integrity Progressing ??? STG - Patient will verbalize signs and symptoms of constipation and how to prevent/alleviate Progressing ??? STG - Patient will be continent of stool Progressing ??? STG - Patient verbalizes knowledge about relationship between diet, fluid intake, activity and medication on constipation Progressing Health Behavior: ??? Understanding of discharge needs will improve Progressing Lack of Knowledge: ??? Ability to state ways to decrease the risk of falls will improve Progressing Lack of Knowledge: ??? Understanding of ways to prevent future skin breakdown will improve Progressing ??? Ability to identify appropriate dietary choices will improve Progressing Nutritional: ??? Dietary intake will improve Progressing ??? Ability to maintain a balanced intake and output will improve Progressing Safety: ??? Will remain free from falls Progressing ??? Will remain free from injury from falls Progressing ??? Will remain free from falls and injury in home environment Progressing Skin Integrity: ??? Risk for impaired skin integrity will decrease Progressing ??? Ability to demonstrate warm and dry skin will improve Progressing ??? Circulation will improve to fullest extent possible Progressing Goals: Clinical Goals for the Shift: Comfort, safety, PT/OT/ST Summary: VSS. NAD. Tolerated therapy well. Wound consult for back wound today reccomending rancho. Will continue to monitor. * Plan of Care - Brenden Pathak LCSW - 10/25/2017 5:19 PM CDT Pt is admitted for recovery. He has been in the hospital since Jul.05. 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 He is using his life time reserve days now and has [facility] through his as secondary. Pt was very active. He was involved in [employer], 6 different [employer] groups in [place]. 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 His is also active in community. He did the cooking And his own laundry. They have a multilevel home with one entry step, then family room area and then 7 steps up to bedrooom. Pt has the option to make a bedroom on family room level. He has access to dme from [employer]. They have a adult son who lives with them. His goal is to be walking by Father' s day. He did have a cpap at home but has not used it in years. [facility] where he got it is no longer in business and the settings were not right he says so hequit using it. They prefer outpatient therapy if possible at discharge. is retired and willingto assist pt. Pt mood appears to be coping . He has experienced some PTSD post ve[place]nam over the years but never needed professional counseling or inpatient treatment. He reports it did not interfer with living. Sw will follow. * Patient Care Conference - Lucie Elizabeth - 10/25/2017 4:10 PM CDT Inpatient RehabilitationTeam Conference Note Date: 10/25/2017 Time: 4:10 PM Patient Name: José Miguel Jang Date of : 1950 Sex: Male Room/Bed: [place] [address] Admitting Diagnosis: DEBILITY Admit Date/Time: 10/24/2017 6:32 PM Admission Comments: No comment available Rehab Diagnosis:Rehab Diagnosis: Respiratory Failure Vitals: 10/25/17 1538 BP: Pulse: Resp: Temp: SpO2: 96% Weight /Nutrition Weight: 94.3 kg (208 lb) Weight change: Food consistency: Liquid consistency: Bladder and Bowel Accidents/Last BM Unmeasured Stool Occurrence 1 at 10/25 1999 Urinary Incontinence No at 10/25 1214 No at 10/25 1999 Bowel Incontinence No at 10/25 1999 Toileting: Level of assistance Total at 10/25 0800 Toileting: Assistance with -- at 10/25 0800 (Comment: all) Pressure Ulcers No matching active lines, drains, or airways Patient Active Problem List Diagnosis Date Noted ??? Former smoker 10/25/2017 ??? COPD (chronic obstructive pulmonary disease) ([facility]) 10/25/2017 ??? Hypercapnic respiratory failure ([facility]) 10/25/2017 ??? Diskitis 10/25/2017 ??? Pneumonia 10/25/2017 ??? Chronic atrial fibrillation ([facility]) 02/22/2017 Conference Led by: (Physician Name, Credentials and Specialty): Rachna Burt MD Team Members Present: Physician Superintendent Maintenance Airports: Rachna Burt MD Nursing Superintendent Maintenance Airports: Rocío Murguia RN (Mila Gonzalez RN) Social Work Superintendent Maintenance Airports: Other (comment) (Jose Alberto SANCHEZ) PT Superintendent Maintenance Airports: Kateryna Lunsford PT OT Superintendent Maintenance Airports: Josefa Hardwick OT TOWING PILOT Superintendent Maintenance Airports: (Christina Chakraborty TOWING PILOT) Patient/Family Present: Patient Present: No Patient's Family Present: No Treatment Goals: Multi-Disciplinary Problems Active Problems Problem: Health Behavior: Start Date: 10/24/17 Goal Start Date End Date Understanding of discharge needs will improve 10/24/17 -- Goal Intervention Frequency Start Date End Date Discuss information regarding discharge instructions -- 10/24/17 -- Goal Intervention Frequency Start Date End Date Identify discharge learning needs (meds, wound care, etc) -- 10/24/17 -- Goal Intervention Frequency Start Date End Date Collaborate with case management -- 10/24/17 -- Intervention Details: (Coordinate discharge planning if the patient needs post- hospital services onphysician order or complex needs related to functional status, cognitive ability, or social supportsystem) Goal Intervention Frequency Start Date End Date Arrange for needed discharge resources and transportation as appropriate -- 10/24/17 -- Goal Intervention Frequency Start Date End Date Identify discharge barriers -- 10/24/17 -- Goal Intervention Frequency Start Date End Date Collaborate with spanish interpreter -- 10/24/17 -- Problem: Lack of Knowledge: Start Date: 10/25/17 Goal Start Date End Date Ability to state ways to decrease the risk of falls will improve 10/25/17 -- Goal Intervention Frequency Start Date End Date Teach fall prevention measures -- 10/25/17 -- Goal Intervention Frequency Start Date End Date Teach information regarding appropriate environmental changes -- 10/25/17 -- Problem: Safety: Start Date: 10/25/17 Goal Start Date End Date Will remain free from falls 10/25/17 -- Goal Intervention Frequency Start Date End Date Assess risk factors for falls -- 10/25/17 -- Intervention Details: (including medications) Goal Intervention Frequency Start Date End Date Implement fall prevention measures -- 10/25/17 -- Goal Intervention Frequency Start Date End Date Collaborate with other disciplines -- 10/25/17 -- Intervention Details: (PT, OT, Pharmacy, MD, etc.) Goal Start Date End Date Will remain free from injury from falls 10/25/17 -- Goal Intervention Frequency Start Date End Date Provide safe environment for conduction of activities of daily living -- 10/25/17 -- Goal Start Date End Date Will remain free from falls and injury in home environment 10/25/17 -- Goal Intervention Frequency Start Date End Date Assess environmental risk factors -- 10/25/17 -- Problem: Activity: Start Date: 10/25/17 Goal Start Date End Date Mobility will improve 10/25/17 -- Goal Intervention Frequency Start Date End Date Encourage mobilization to extent of ability -- 10/25/17 -- Goal Intervention Frequency Start Date End Date Perform repositioning -- 10/25/17 -- Goal Intervention Frequency Start Date End Date Collaborate with physical therapy -- 10/25/17 -- Problem: Lack of Knowledge: Start Date: 10/25/17 Goal Start Date End Date Understanding of ways to prevent future skin breakdown will improve 10/25/17 -- Goal Intervention Frequency Start Date End Date Discuss precautions to protect skin integrity -- 10/25/17 -- Goal Intervention Frequency Start Date End Date Discuss treatment plan for related conditions -- 10/25/17 -- Goal Start Date End Date Ability to identify appropriate dietary choices will improve 10/25/17 -- Goal Intervention Frequency Start Date End Date Discuss dietary adjustments -- 10/25/17 -- Problem: Nutritional: Start Date: 10/25/17 Goal Start Date End Date Dietary intake will improve 10/25/17 -- Goal Intervention Frequency Start Date End Date Assess nutritional status -- 10/25/17 -- Goal Intervention Frequency Start Date End Date Collaborate with dietitian -- 10/25/17 -- Goal Intervention Frequency Start Date End Date Assist appropriate dietary choices -- 10/25/17 -- Goal Start Date End Date Ability to maintain a balanced intake and output will improve 10/25/17 -- Goal Intervention Frequency Start Date End Date Assess intake and output -- 10/25/17 -- Problem: Skin Integrity: Start Date: 10/25/17 Goal Start Date End Date Risk for impaired skin integrity will decrease 10/25/17 -- Goal Intervention Frequency Start Date End Date Identify risk factors for impaired skin integrity and/or pressure injuries -- 10/25/17 -- Goal Intervention Frequency Start Date End Date Monitor medication effects -- 10/25/17 -- Goal Intervention Frequency Start Date End Date Implement precautions to protect skin integrity -- 10/25/17 -- Goal Intervention Frequency Start Date End Date Use moisturizing agent to dry skin -- 10/25/17 -- Goal Intervention Frequency Start Date End Date Perform cleansing of skin when soiled -- 10/25/17 -- Goal Intervention Frequency Start Date End Date Provide pressure-relief bed or mattress -- 10/25/17 -- Goal Start Date End Date Ability to demonstrate warm and dry skin will improve 10/25/17 -- Goal Intervention Frequency Start Date End Date Monitor skin integrity, appearance and/or temperature -- 10/25/17 -- Goal Start Date End Date Circulation will improve to fullest extent possible 10/25/17 -- Goal Intervention Frequency Start Date End Date Assess circulation, sensation and/or motion of extremity -- 10/25/17 -- Problem: Bladder/Voiding Start Date: 10/25/17 Goal Start Date End Date LTG - Patient will achieve acceptable level of continence 10/25/17 -- Goal Start Date End Date STG - Patient demonstrates no accidents 10/25/17 -- Goal Intervention Frequency Start Date End Date Encourage toileting PRN 10/25/17 -- Goal Intervention Frequency Start Date End Date Educate patient about medications PRN 10/25/17 -- Problem: Bowel Elimination Start Date: 10/25/17 Goal Start Date End Date LTG - Patient will have regular and routine bowel evacuation 10/25/17 -- Goal Start Date End Date LTG - Patient will complete bowel elimination 10/25/17 -- Goal Start Date End Date STG - Patient maintains skin integrity 10/25/17 -- Goal Intervention Frequency Start Date End Date Educate patient about ostomy appliances, correct application, protection of skin PRN 10/25/17 -- Goal Start Date End Date STG - Patient will verbalize signs and symptoms of constipation and how to prevent/alleviate 10/25/17 -- Goal Intervention Frequency Start Date End Date Encourage use of aids (stool softener, laxative, suppository) PRN 10/25/17 -- Goal Intervention Frequency Start Date End Date Encourage adjustment and monitoring of fluid intake PRN 10/25/17 -- Goal Intervention Frequency Start Date End Date Teach patient about symptoms of impaction PRN 10/25/17 -- Goal Intervention Frequency Start Date End Date Educate patient about effect of fluid intake on bowel movement PRN 10/25/17 -- Goal Intervention Frequency Start Date End Date Educate patient about adequate fluid intake PRN 10/25/17 -- Goal Start Date End Date STG - Patient will be continent of stool 10/25/17 -- Goal Start Date End Date STG - Patient verbalizes knowledge about relationship between diet, fluid intake, activity and medication on constipation 10/25/17 -- Goal Intervention Frequency Start Date End Date Educate patient about medications PRN 10/25/17 -- Goal Intervention Frequency Start Date End Date Educate patient about adequate fluid intake PRN 10/25/17 -- Problem: Breathing Start Date: 10/25/17 Goal Start Date End Date STG - Respiratory rate and effort will be within normal limits for the patient 10/25/17 -- Goal Intervention Frequency Start Date End Date Provide oxygen therapy as ordered PRN 10/25/17 -- Goal Intervention Frequency Start Date End Date Monitor oygen saturation PRN 10/25/17 -- Goal Intervention Frequency Start Date End Date Encourage incentive spirometer x 10 each hour while awake PRN 10/25/17 -- Goal Intervention Frequency Start Date End Date Encourage/perform oral hygiene as appropriate PRN 10/25/17 -- Goal Intervention Frequency Start Date End Date Collaborate with respiratory therapy to administer medications/treatments PRN 10/25/17 -- Goal Start Date End Date STG - Patient/family will be able to verbalize oxygen safety precautions 10/25/17 -- Goal Intervention Frequency Start Date End Date Educate patient about oxygen PRN 10/25/17 -- Goal Start Date End Date STG - Patient will utilize incentive spirometer 10/25/17 -- Goal Intervention Frequency Start Date End Date Encourage incentive spirometer x 10 each hour while awake PRN 10/25/17 -- Goal Intervention Frequency Start Date End Date Encourage use of incentive spirometer PRN 10/25/17 -- Goal Start Date End Date STG - Patient performs or directs assisted coughing 10/25/17 -- Goal Intervention Frequency Start Date End Date Instruct on coughing and deep breathing PRN 10/25/17 -- Goal Intervention Frequency Start Date End Date Educate patient about forced cough PRN 10/25/17 -- Goal Intervention Frequency Start Date End Date Teach patient about assistive cough PRN 10/25/17 -- Problem: Pain Start Date: 10/25/17 Goal Start Date End Date STG - Pain is manageable through therapies 10/25/17 -- Goal Start Date End Date [facility] - Patient will verbalize an acceptable level of pain 10/25/17 -- Problem: OT [facility] [place] [facility] Start Date: 10/25/17 Goal Start Date End Date [facility] 10/25/17 -- Goal Details: Pt to dress modified IND Goal Start Date End Date [facility] [place] [facility] 10/25/17 -- Goal Details: Pt to groom modified IND Goal Start Date End Date [facility] [place] [facility] 10/25/17 -- Goal Details: Pt to bathe with transfer modified IND Goal Start Date End Date [facility] [place] 4 10/25/17 -- Goal Details: Pt to toilet with transfer modified IND Goal Start Date End Date [facility] [place] 5 10/25/17 -- Goal Details: Pt to complete UE HEP with IND to promote IND with self care and functional transfers Problem: TOWING PILOT [facility] Start Date: 10/25/17 Goal Start Date End Date [facility] [place] 1 10/25/17 -- Goal Details: Patient will tolerate regular consistency with thin liquids without clinical overt s/s of aspiration. Goal Start Date End Date [facility] [place] [facility] 10/25/17 -- Goal Details: Patient will complete 3 sets of 10 pharyngeal strengthening exercises Problem: Cognitive: Start Date: 10/25/17 Goal Start Date End Date [facility] 1 10/25/17 -- Goal Details: Patient will execute multiple elements of a task with supervision Goal Start Date End Date [facility] 2 10/25/17 -- Goal Details: Patient will increase problem solving to complete tasks at 90% or with supervision Problem: Physical Regulation: Start Date: 10/25/17 Goal Start Date End Date [facility] 3 10/25/17 -- Goal Details: Patient will increase general strength/coordination through various exercises with supervision until disch Problem: Respiratory: Start Date: 10/25/17 Goal Start Date End Date [facility] 4 10/25/17 -- Goal Details: Patient will maintain/increase SPO2 by 1% in at least one session prior to disch Goal Start Date End Date [facility] 5 10/25/17 -- Goal Details: Patient will increase pulmonary function through various exercises with supervision until disch Current Functional Status: PT Functional Mobility: pt is total assist for bed<-->WC transfers via garrett lift, propels WC100' w/ minimum assist for turns/steering and extra time, sit<-->paving foreman // bars x3 reps with max assist x2 and SARAH UE support (unable to come to full stand or maintain upright posture for more than a few seconds) OT Functional Mobility: Pt. completes supine to sit max assist and 2 person DEP for sit to stand with manual stand aid OT Self Care: DEP to minimal assist for self care with 1 to 2 people. Pt using rolling shower chairwith sarah supports and manual stand aid 2 person with LE dressing. Pt demonstrates general decreasedbalance, endurance, strength and sensation. Pt will benefit from continued skilled OT to promote IND toward goals. OT Cognition: Appears WNL OT Communication: decreased vocal strength at times. TOWING PILOT Cognition: WFL TOWING PILOT Communication: WFL TOWING PILOT Swallowing: Mild: Mechanical soft consistency with thin liquids Caregiver at Discharge: ,son,roll up helper Living Setting at Discharge: Patient expects to be discharged to:: Private residence Steps: , , Anticipated Discharge Date: 11/15/17 Potential Halfway Needs/Follow-up: Potential Halfway Needs: Therapies, Anticipated Supervision:intermittent Anticipated Equipment Needs: none Strengths to Achieving Rehab Goals: Strengths: Able to tolerate intensive inpatient rehab program, Good family/social support, Good premorbid functional status, Living in the community premorbidly, Motivated Barriers to Achieving Rehab Goals: Barriers: (decreased mobility,decreased ADL function,swallow impairment) Medical Barriers: pulmonary status,open wounds, need for bipap Patient and Family Goals: to return home with assistance Weekly Team Goals: The team has reassessed the validity of the IRF stay and appropriateness of the goals established. Continue per above plan. Cosigned by Rachna Burt MD at 10/27/2017 8:31 AM CDT * Plan of Care - Dayan Perez MT-BC - 10/25/2017 3:45 PM CDT Problem: Cognitive: Goal: STG - Misc 1 Patient will execute multiple elements of a task with supervision Outcome: Progressing Goal: STG - Misc 2 Patient will increase problem solving to complete tasks at 90% or with supervision Outcome: Progressing Problem: Physical Regulation: Goal: STG - Misc 3 Patient will increase general strength/coordination through various exercises with supervision until disch Outcome: Progressing Problem: Respiratory: Goal: STG - Misc 4 Patient will maintain/increase SPO2 by 1% in at least one session prior to disch Outcome: Progressing Goal: STG - Misc 5 Patient will increase pulmonary function through various exercises with supervision until disch Outcome: Progressing Comments: MUSIC THERAPY 10/25/17 1450 Precautions Precautions Aspiration;Bed/Chair Alarm;Fall risk Prior Level of Function Type of Home House Lives With Spouse;Son Music History Vocal hx in school choir, singing with a group / enjoys singing Instrumental guitar, drums (couple years) / wanted to learn steel guitar Musical Preferences Decade of 20s 1969 Preferred Decade Genres no rap/heavy metal/opera Artists/Groups Jocelyne Pagan, You Bustillo, Jocelyne Ludwig, Sir Bruce Mane, Nino Kiser, Baudilio Alanis, Benito Grover, Trae Kuhn Patient/Caregiver Goals Patient Back walking, build body strength, home by Father's Day Caregiver Walking, come home Pain Assessment Pain Assessment No/denies pain Oxygen Therapy O2 Therapy Supplemental oxygen O2 Del Method Nasal cannula O2 Flow Rate (L/min) 2 L/min Vision-Basic Assessment Current Vision Wears glasses only for reading (patient notes he needs an eye appointment) Hearing Hearing X Hearing Aid Hard of Hearing/Hearing Concern Cognition Overall Cognitive Status WFL Arousal/Alertness Appropriate responses to stimuli Attention Span Appears intact Memory Appears intact Orientation Level Oriented X4 Following Commands Follows all commands and directions without difficulty Awareness of Errors Assistance required to identify errors made Problem Solving Able to problem solve independently Compliance/Behavior Easy to engage Perseveration Not present Barriers Barriers Comorbidities Candidacy/Recommendations Appropriate Candidate for Music Therapy Yes Recommended Treatment Areas Physical;Cognition;Social/Emotional (Pulmonary/Respiratory) Patient Response Patient's Response to Music Positive 10/25/17 1450 Physical/Motor Grasps instrument WNL Rings Instrument WNL Shakes Instrument WNL Strikes Instrument WNL Strums Instrument WNL Plays Keyboard Not Tested Tone from wind instrument Not Tested Manages instrument WNL (right hand dominant) Communication/Expression Verbal response to prompt WNL Nonverbal response to prompt WNL Vocal dynamics during singing task Min (patient with open stoma - covers when speaking) Vocal imitation during singing task WNL Deb completion Not Tested Executes singing task Min (patient on 2 L O2 NC, open stoma - impacts speaking) Cognition Executes musical task Min (cues for scanning) Focused attention during musical task WNL Sustained attention during musical task WNL Procedural memory to play instruments WNL Visual scanning of music/lyrics Min (few cues required) Command following with instruments-percentage 100 (one set repeated due to hearing) Command following with instruments Complex (mixed sets) Percent Deb Recall (Immediate) 95 (all details) Percent Deb Recall (Delayed) 100 (five important details) Percent Music Therapy Session Recall 100 Social/Emotional Social/Emotional Patient pleasant/friendly and willing to participate in all tasks. 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 Patient is also actively involved with local organizations (patient was in the [employer] for six years during[employer]). Patient and his would like him to improve his mobility prior to disch. * Plan of Care - Christina Chakraborty SLP - 10/25/2017 12:49 PM CDT Problem: TOWING PILOT Misc Goal: LTG - Misc 1 Patient will tolerate regular consistency with thin liquids without clinical overt s/s of aspiration. Outcome: Progressing Goal: LTG - Misc 2 Patient will complete 3 sets of 10 pharyngeal strengthening exercises Outcome: Progressing * Assessment & Plan Note - Александр Esipno Jr., MD - 10/25/2017 9:10 AM CDT Associated Problem(s): COPD (chronic obstructive pulmonary disease) (HCC) Pulmonary function testing when stable. Continue inhaled bronchodilator therapy. Lungs are clear * Assessment & Plan Note - Александр Espino Jr., MD - 10/25/2017 9:09 AM CDT Associated Problem(s): Diskitis Completed debridement, prolonged antibiotic therapy for an L1 diskitis. Continue physical therapy, pain control * Assessment & Plan Note - Александр Espino Jr., MD - 10/25/2017 9:09 AM CDT Associated Problem(s): Former smoker May meet criteria for lung cancer screen * Assessment & Plan Note - Александр Espino Jr., MD - 10/25/2017 9:09 AM CDT Associated Problem(s): Hypercapnic respiratory failure (CMS/HCC) (HCC) Successfully decannulated. Comfortable on room air. Doing well without BiPAP * Assessment & Plan Note - Александр Espino Jr., MD - 10/25/2017 9:08 AM CDT Associated Problem(s): Pneumonia Completed treatment for pneumonia, empyema prior to transfer to [facility]. Finished Bactrim for stenotrophomonas pneumonia here. Continue to observe off antibiotics. * Assessment & Plan Note - Александр Espino Jr., MD - 10/25/2017 8:56 AM CDT Associated Problem(s): Chronic atrial fibrillation (HCC) Normal sinus rhythm by exam. Monitor for bleeding ( had bleeding around his tracheostomy, skin tears while at [facility]). Continue amiodarone, aspirin, Lipitor, metoprolol, apixaban * Plan of Care - Josefa Hardwick OT - 10/25/2017 7:59 AM CDT Problem: OT Misc Goal: LTG - Misc 1 Pt to dress modified IND Outcome: Progressing Goal: LTG - Misc 2 Pt to groom modified IND Outcome: Progressing Goal: LTG - Misc 3 Pt to bathe with transfer modified IND Outcome: Progressing Goal: LTG - Misc 4 Pt to toilet with transfer modified IND Outcome: Progressing Goal: LTG - Misc 5 Pt to complete UE HEP with IND to promote IND with self care and functional transfers Outcome: Progressing * Plan of Care - Raven Camejo RN - 10/25/2017 3:09 AM CDT Activity: ??? Mobility will improve Progressing Bladder/Voiding ??? LTG - Patient will achieve acceptable level of continence Progressing ??? STG - Patient demonstrates no accidents Progressing Bowel Elimination ??? LTG - Patient will have regular and routine bowel evacuation Progressing ??? LTG - Patient will complete bowel elimination Progressing ??? STG - Patient maintains skin integrity Progressing ??? STG - Patient will verbalize signs and symptoms of constipation and how to prevent/alleviate Progressing ??? STG - Patient will be continent of stool Progressing ??? STG - Patient verbalizes knowledge about relationship between diet, fluid intake, activity and medication on constipation Progressing Health Behavior: ??? Understanding of discharge needs will improve Progressing Lack of Knowledge: ??? Ability to state ways to decrease the risk of falls will improve Progressing Lack of Knowledge: ??? Understanding of ways to prevent future skin breakdown will improve Progressing ??? Ability to identify appropriate dietary choices will improve Progressing Nutritional: ??? Dietary intake will improve Progressing ??? Ability to maintain a balanced intake and output will improve Progressing Safety: ??? Will remain free from falls Progressing ??? Will remain free from injury from falls Progressing ??? Will remain free from falls and injury in home environment Progressing Skin Integrity: ??? Risk for impaired skin integrity will decrease Progressing ??? Ability to demonstrate warm and dry skin will improve Progressing ??? Circulation will improve to fullest extent possible Progressing Goals: Clinical Goals for the Shift: Patient to use call light, be free of pain, remain continent, and to get good night sleep Summary: Patient using call light. Wearing BIPAP and oxygen at night. No complaints of pain during shift. Using urinal during night. documented in this encounter Plan of Treatment Not on file documented as of this encounter Procedures Procedure Name Priority Date/Time Associated Diagnosis Comments EGFR Routine 11/07/2017 6:15 AM CDT DIFFERENTIAL AUTO Routine 11/07/2017 6:1 5 AM CDT CBC WITH AUTO DIFFERENTIAL Routine 11/07/2017 6:15 AM CDT BASIC METABOLIC PANEL Routine 11/07/2017 6:15 AM CDT MRSA ONLY (STAPHYLOCOCCUS AUREUS) PCR Routine 11/05/2017 11:45 AM CDT MRSA ONLY (STAPHYLOCOCCUS AUREUS) PCR Routine 11/04/2017 9:41 AM CDT EGFR Routine 11/03/2017 5:38 AM CDT DIFFERENTIAL AUTO Routine 11/03/2017 5:3 8 AM CDT CBC WITH AUTO DIFFERENTIAL Routine 11/03/2017 5:38 AM CDT COMPREHENSIVE METABOLIC PANEL Routine 11/03/2017 5:38 AM CDT BLOOD GAS, ARTERIAL Routine 10/31/2017 5 :12 AM CDT EGFR Routine 10/31/2017 3:57 AM CDT DIFFERENTIAL AUTO Routine 10/31/2017 3:5 7 AM CDT CBC WITH AUTO DIFFERENTIAL Routine 10/31/2017 3:57 AM CDT BASIC METABOLIC PANEL Routine 10/31/2017 3:57 AM CDT XR CHEST PA LATERAL 2 VIEWS IP Routine 10/30/2017 9:11 AM CDT GLUCOSE POC Routine 10/30/2017 6:44 AM CDT EGFR Routine 10/30/2017 4:01 AM CDT PHOSPHORUS Routine 10/30/2017 4:01 AM CDT COMPREHENSIVE METABOLIC PANEL Routine 10/30/2017 4:01 AM CDT GLUCOSE POC Routine 10/29/2017 4:58 PM CDT GLUCOSE POC Routine 10/29/2017 11:58 AM CDT GLUCOSE POC Routine 10/29/2017 6:22 AM CDT EGFR Routine 10/29/2017 3:07 AM CDT TSH Routine 10/29/2017 3:07 AM CDT COMPREHENSIVE METABOLIC PANEL Routine 10/29/2017 3:07 AM CDT GLUCOSE POC Routine 10/28/2017 8:17 PM CDT GLUCOSE POC Routine 10/28/2017 4:45 PM CDT GLUCOSE POC Routine 10/28/2017 11:50 AM CDT GLUCOSE POC Routine 10/28/2017 6:36 AM CDT EGFR Routine 10/28/2017 4:54 AM CDT DIFFERENTIAL AUTO Routine 10/28/2017 4:5 4 AM CDT CBC WITH AUTO DIFFERENTIAL Routine 10/28/2017 4:54 AM CDT OSMOLALITY, BLOOD Routine 10/28/2017 4:5 4 AM CDT COMPREHENSIVE METABOLIC PANEL Routine 10/28/2017 4:54 AM CDT GLUCOSE POC Routine 10/27/2017 9:55 PM CDT GLUCOSE POC Routine 10/27/2017 4:57 PM CDT GLUCOSE POC Routine 10/27/2017 11:51 AM CDT GLUCOSE POC Routine 10/27/2017 6:18 AM CDT EGFR Routine 10/27/2017 3:57 AM CDT COMPREHENSIVE METABOLIC PANEL Routine 10/27/2017 3:57 AM CDT GLUCOSE POC Routine 10/26/2017 10:33 PM CDT GLUCOSE POC Routine 10/26/2017 5:01 PM CDT GLUCOSE POC Routine 10/26/2017 12:02 PM CDT GLUCOSE POC Routine 10/26/2017 6:21 AM CDT EGFR Routine 10/26/2017 4:03 AM CDT DIFFERENTIAL AUTO Routine 10/26/2017 4:0 3 AM CDT CBC WITH AUTO DIFFERENTIAL Routine 10/26/2017 4:03 AM CDT VITAMIN D 25 HYDROXY Routine 10/26/2017 4:03 AM CDT PHOSPHORUS Routine 10/26/2017 4:03 AM CDT MAGNESIUM Routine 10/26/2017 4:03 AM CDT COMPREHENSIVE METABOLIC PANEL Routine 10/26/2017 4:03 AM CDT GLUCOSE POC Routine 10/25/2017 10:00 PM CDT GLUCOSE POC Routine 10/25/2017 4:25 PM CDT GLUCOSE POC Routine 10/25/2017 12:04 PM CDT GLUCOSE POC Routine 10/25/2017 6:07 AM CDT EGFR Routine 10/25/2017 5:40 AM CDT DIFFERENTIAL AUTO Routine 10/25/2017 5:4 0 AM CDT CBC WITH AUTO DIFFERENTIAL Routine 10/25/2017 5:40 AM CDT COMPREHENSIVE METABOLIC PANEL Routine 10/25/2017 5:40 AM CDT GLUCOSE POC Routine 10/24/2017 10:34 PM CDT documented in this encounter Results * eGFR (11/07/2017 6:15 AM CDT) [facility] e[facility] 94 mL/min/1.7 3 m2 [facility] Comment: Interpretive Data Reference Interval Normal ?>/= 90 mL/min/1.73m2 Mildly decreased* ? 60 - 89 mL/min/1.73m2 Mildly to moderately decreased ?45 - 59 mL/min/1.73m2 Moderately to severely decreased ??30 - 44 mL/min/1.73m2 Severely decreased ?15 - 29 mL/min/1.73m2 Kidney Failure ?< 15 ??mL/min/1.73m2 *Relative to young adult level If -Guyanese multiply value by 1.16. Estimated glomerular filtration [...] 70. Current interpretive data was last reviewed 2016. Blood specimen (specimen) 11/07/2017 6:15 AM CDT 11/07/2017 6:24 AM CDT Narrative [facility] - 11/07/2017 6:50 AM CDT us Rachna Burt MD LAB BLOOD ORDERABLES Final Re sult [facility] [address] [place] [address] * (ABNORMAL) Differential, auto (11/07/2017 6:15 AM CDT) Neutrophil abs 3.9 1.7 - 6.5 K/cumm [facility] Imm gran abs 0.0 0.0 - 0.1 K/cumm [facility] Lymphocyte abs 0.6(L) 0.8 - 3.3 K/cumm [facility] Monocyte abs 0.6 0.2 - 0.8 K/cumm [facility] Eosinophil abs 0.6(H) 0.0 - 0.5 K/cumm [facility] Basophil abs 0.0 0.0 - 0.1 K/cumm [facility] Neutrophil pct 68.4 % [facility] Comment: Interpretive Data Percent cell count reference ranges are not reported, since discordance with absolute values may lead to misinterpretation of CBC data. Current Interpretive Data was last revised on 2017. Imm gran pct 0.5 % [facility] Comment: Interpretive Data Percent cell count reference ranges are not reported, since discordance with absolute values may lead to misinterpretation of CBC data. Current Interpretive Data was last revised on 2017. Lymphocyte pct 9.7 % [facility] Comment: Interpretive Data Percent cell count reference ranges are not reported, since discordance with absolute values may lead to misinterpretation of CBC data. Current Interpretive Data was last revised on 2017. Monocyte pct 10.8 % [facility] Comment: Interpretive Data Percent cell count reference ranges are not reported, since discordance with absolute values may lead to misinterpretation of CBC data. Current Interpretive Data was last revised on 2017. Eosinophil pct 10.4 % [facility] Comment: Interpretive Data Percent cell count reference ranges are not reported, since discordance with absolute values may lead to misinterpretation of CBC data. Current Interpretive Data was last revised on 2017. Basophil pct 0.2 % [facility] Comment: Interpretive Data Percent cell count reference ranges are not reported, since discordance with absolute values may lead to misinterpretation of CBC data. Current Interpretive Data was last revised on 2017. Blood specimen (specimen) 11/07/2017 6:15 AM CDT 11/07/2017 6:24 AM CDT Narrative [facility] - 11/07/2017 6:39 AM CDT us Rachna Burt MD LAB BLOOD ORDERABLES Final Re sult [facility] [address] Department [place] [address] * (ABNORMAL) Basic metabolic panel (11/07/2017 6:15 AM CDT) Sodium 138 135 - 145 mmol/L [facility] Potassium, pl 3.7 3.3 - 4.9 mmol/L [facility] Chloride 100 97 - 110 mmol/L [facility] CO2 27 22 - 32 mmol/L [facility] BUN 16 8 - 25 mg/dL [facility] Glucose 83 70 - 199 mg/dL [facility] Comment: Interpretive Data Fasting glucose >/= 126 [...] Current interpretive data was last revised 2017. Creatinine 0.76(L) 0.80 - 1.30 mg/dL [facility] Calcium 8.5 8.5 - 10.3 mg/dL [facility] Anion gap 11 2 - 15 mmol/L [facility] Blood specimen (specimen) 11/07/2017 6:15 AM CDT 11/07/2017 6:24 AM CDT Narrative [facility] - 11/07/2017 6:50 AM CDT us Rachna Burt MD LAB BLOOD ORDERABLES Final Re sult [facility] [address] Department [place] [address] * (ABNORMAL) CBC with auto differential (11/07/2017 6:15 AM CDT) WBC 5.7 3.8 - 9.9 K/cumm [facility] RBC 3.25(L) 4.30 - 5.80 M/cumm [facility] Hgb 9.5(L) 13.0 - 17.5 g/dL [facility] Hct 31.5(L) 38.9 - 50.3 % [facility] MCV 96.9(H) 81.3 - 96.4 fL [facility] MCH 29.2 27.1 - 33.3 pg [facility] MCHC 30.2(L) 32.3 - 35.7 g/dL [facility] RDW CV 17.6(H) 11.1 - 14.9 % [facility] RDW SD 63.6(H) 35.7 - 48.1 fL [facility] Plt 205 150 - 400 K/cumm [facility] MPV 11.5 9.1 - 12.3 fL [facility] NRBC abs 0.00 0.00 - 0.01 K/cumm [facility] Blood specimen (specimen) 11/07/2017 6:15 AM CDT 11/07/2017 6:24 AM CDT Narrative [facility] - 11/07/2017 6:39 AM CDT us Rachna Burt MD LAB BLOOD ORDERABLES Final Re sult Performing Organization Address [facility] Co de Phone Number [facility] [address] [place] [address] * MRSA PCR (11/05/2017 11:45 AM CDT) Pathologist [facility] PCR Scrn, Methicillin resistant Staphylococcus aureus (MRSA) Negative Negative [facility] Nasal 11/05/2017 11:4 5 AM CDT 11/05/2017 12:08 PM CDT Narrative [facility] - 11/05/2017 1:39 PM CDT us Jason Shore Jr., BELLA LAB MICROBIOLOGY - GENER AL ORDERABLES Final Result Performing Organization Address [facility] de Phone Number [facility] [address] [place] [address] * MRSA PCR (11/04/2017 9:41 AM CDT) [facility] PCR Scrn, Methicillin resistant Staphylococcus aureus (MRSA) Negative Negative [facility] Nasal 11/04/2017 9:41 AM CDT 11/04/2017 9:56 AM CDT Narrative [facility] - 11/04/2017 11:08 AM CDT us Jason Shore Jr., NP LAB MICROBIOLOGY - GENER AL ORDERABLES Final Result Performing Organization Address [facility] Co de Phone Number [facility] [address] [place] [address] * eGFR (11/03/2017 5:38 AM CDT) [facility] eGFR 95 mL/min/1.7 3 m2 [facility] Comment: Interpretive Data Reference Interval Normal ?>/= 90 mL/min/1.73m2 Mildly decreased* ? 60 - 89 mL/min/1.73m2 Mildly to moderately decreased ?45 - 59 mL/min/1.73m2 Moderately to severely decreased ??30 - 44 mL/min/1.73m2 Severely decreased ?15 - 29 mL/min/1.73m2 Kidney Failure ?< 15 ??mL/min/1.73m2 *Relative to young adult level If -Guyanese multiply value by 1.16. Estimated glomerular filtration [...] 70. Current interpretive data was last reviewed 2016. Blood specimen (specimen) 11/03/2017 5:38 AM CDT 11/03/2017 7:25 AM CDT Narrative [facility] - 11/03/2017 7:55 AM CDT us Rachna Burt MD LAB BLOOD ORDERABLES Final Re sult [facility] [address] Department [place] [address] * (ABNORMAL) Differential, auto (11/03/2017 5:38 AM CDT) Neutrophil abs 4.2 1.7 - 6.5 K/cumm [facility] Imm gran abs 0.0 0.0 - 0.1 K/cumm [facility] Lymphocyte abs 0.5(L) 0.8 - 3.3 K/cumm [facility] Monocyte abs 0.5 0.2 - 0.8 K/cumm [facility] Eosinophil abs 0.3 0.0 - 0.5 K/cumm [facility] Basophil abs 0.0 0.0 - 0.1 K/cumm [facility] Neutrophil pct 77.0 % [facility] Comment: Interpretive Data Percent cell count reference ranges are not reported, since discordance with absolute values may lead to misinterpretation of CBC data. Current Interpretive Data was last revised on 2017. Imm gran pct 0.5 % [facility] Comment: Interpretive Data Percent cell count reference ranges are not reported, since discordance with absolute values may lead to misinterpretation of CBC data. Current Interpretive Data was last revised on 2017. Lymphocyte pct 8.3 % [facility] Comment: Interpretive Data Percent cell count reference ranges are not reported, since discordance with absolute values may lead to misinterpretation of CBC data. Current Interpretive Data was last revised on 2017. Monocyte pct 9.1 % [facility] Comment: Interpretive Data Percent cell count reference ranges are not reported, since discordance with absolute values may lead to misinterpretation of CBC data. Current Interpretive Data was last revised on 2017. Eosinophil pct 4.7 % [facility] Comment: Interpretive Data Percent cell count reference ranges are not reported, since discordance with absolute values may lead to misinterpretation of CBC data. Current Interpretive Data was last revised on 2017. Basophil pct 0.4 % [facility] Comment: Interpretive Data Percent cell count reference ranges are not reported, since discordance with absolute values may lead to misinterpretation of CBC data. Current Interpretive Data was last revised on 2017. Blood specimen (specimen) 11/03/2017 5:38 AM CDT 11/03/2017 7:25 AM CDT Narrative [facility] - 11/03/2017 7:33 AM CDT us Rachna Burt MD LAB BLOOD ORDERABLES Final Re sult [facility] [address] Department [place] [address] * (ABNORMAL) Comprehensive metabolic panel (11/03/2017 5:38 AM CDT) Sodium 139 135 - 145 mmol/L [facility] Potassium, pl 4.1 3.3 - 4.9 mmol/L [facility] CO2 29 22 - 32 mmol/L [facility] BUN 14 8 - 25 mg/dL [facility] Glucose 89 70 - 199 mg/dL [facility] Comment: Interpretive Data Fasting glucose >/= 126 [...] Current interpretive data was last revised 2017. Creatinine 0.74(L) 0.80 - 1.30 mg/dL [facility] Calcium 8.7 8.5 - 10.3 mg/dL [facility] Chloride 100 97 - 110 mmol/L [facility] Albumin 3.0(L) 3.5 - 5.0 g/dL [facility] AST 28 10 - 50 Units/L [facility] ALT 38 7 - 55 Units/L [facility] Alk phos 144(H) 40 - 130 Units/L [facility] Bilirubin, total 0.3 0.1 - 1.2 mg/dL [facility] Protein, pl 5.8(L) 6.5 - 8.5 g/dL [facility] Anion gap 10 2 - 15 mmol/L [facility] Blood specimen (specimen) 11/03/2017 5:38 AM CDT 11/03/2017 7:25 AM CDT Narrative [facility] - 11/03/2017 7:55 AM CDT us Rachna Burt MD LAB BLOOD ORDERABLES Final Re sult [facility] [address] [place] [address] * (ABNORMAL) CBC with auto differential (11/03/2017 5:38 AM CDT) WBC 5.5 3.8 - 9.9 K/cumm [facility] RBC 3.22(L) 4.30 - 5.80 M/cumm [facility] Hgb 9.3(L) 13.0 - 17.5 g/dL [facility] Hct 31.1(L) 38.9 - 50.3 % [facility] MCV 96.6(H) 81.3 - 96.4 fL [facility] MCH 28.9 27.1 - 33.3 pg [facility] MCHC 29.9(L) 32.3 - 35.7 g/dL [facility] RDW CV 18.1(H) 11.1 - 14.9 % [facility] RDW SD 64.4(H) 35.7 - 48.1 fL [facility] Plt 160 150 - 400 K/cumm [facility] MPV 11.8 9.1 - 12.3 fL [facility] NRBC abs 0.00 0.00 - 0.01 K/cumm [facility] Blood specimen (specimen) 11/03/2017 5:38 AM CDT 11/03/2017 7:25 AM CDT Narrative [facility] - 11/03/2017 7:33 AM CDT us Rachna Burt MD LAB BLOOD ORDERABLES Final Re sult [facility] [address] Department [place] [address] * (ABNORMAL) Blood gas, arterial (10/31/2017 5:12 AM CDT) pH, Art 7.43 7.35 - 7.45 [facility] PCO2, Arterial 39 35 - 45 mmHg [facility] PO2, Arterial 166(H) 83 - 108 mmHg [facility] BE, art 2 mmol/L [facility] Comment: Interpretive Data No Reference Range Established Current Interpretive Data was last revised on 2017 O2 Sat Art (Calculated) 100(H) 94 - 98 % [facility] HCO3 Art (Calculated) 26 20 - 30 mmol/L [facility] Blood specimen (specimen) 10/31/2017 5:12 AM CDT 10/31/2017 5:13 AM CDT Narrative [facility] - 10/31/2017 5:16 AM CDT us Александр Espino Jr., MD LAB BLOOD ORDERABLES Fi nal Result [facility] [address] Department [place] [address] * eGFR (10/31/2017 3:57 AM CDT) eGFR 95 mL/min/1.7 3 m2 [facility] Comment: Interpretive Data Reference Interval Normal ?>/= 90 mL/min/1.73m2 Mildly decreased* ? 60 - 89 mL/min/1.73m2 Mildly to moderately decreased ?45 - 59 mL/min/1.73m2 Moderately to severely decreased ??30 - 44 mL/min/1.73m2 Severely decreased ?15 - 29 mL/min/1.73m2 Kidney Failure ?< 15 ??mL/min/1.73m2 *Relative to young adult level If -Guyanese multiply value by 1.16. Estimated glomerular filtration [...] 70. Current interpretive data was last reviewed 2016. Blood specimen (specimen) 10/31/2017 3:57 AM CDT 10/31/2017 4:23 AM CDT Narrative [facility] - 10/31/2017 4:48 AM CDT Adam Pastor MD LAB BLOOD ORDERABLES Final Re sult [facility] [address] [place] [address] * (ABNORMAL) Differential, auto (10/31/2017 3:57 AM CDT) Neutrophil abs 5.4 1.7 - 6.5 K/cumm [facility] Imm gran abs 0.0 0.0 - 0.1 K/cumm [facility] Lymphocyte abs 0.6(L) 0.8 - 3.3 K/cumm [facility] Monocyte abs 0.8 0.2 - 0.8 K/cumm [facility] Eosinophil abs 0.2 0.0 - 0.5 K/cumm [facility] Basophil abs 0.0 0.0 - 0.1 K/cumm [facility] Neutrophil pct 76.9 % [facility] Comment: Interpretive Data Percent cell count reference ranges are not reported, since discordance with absolute values may lead to misinterpretation of CBC data. Current Interpretive Data was last revised on 2017. Imm gran pct 0.7 % [facility] Comment: Interpretive Data Percent cell count reference ranges are not reported, since discordance with absolute values may lead to misinterpretation of CBC data. Current Interpretive Data was last revised on 2017. Lymphocyte pct 7.7 % [facility] Comment: Interpretive Data Percent cell count reference ranges are not reported, since discordance with absolute values may lead to misinterpretation of CBC data. Current Interpretive Data was last revised on 2017. Monocyte pct 11.4 % [facility] Comment: Interpretive Data Percent cell count reference ranges are not reported, since discordance with absolute values may lead to misinterpretation of CBC data. Current Interpretive Data was last revised on 2017. Eosinophil pct 3.2 % [facility] Comment: Interpretive Data Percent cell count reference ranges are not reported, since discordance with absolute values may lead to misinterpretation of CBC data. Current Interpretive Data was last revised on 2017. Basophil pct 0.1 % [facility] Comment: Interpretive Data Percent cell count reference ranges are not reported, since discordance with absolute values may lead to misinterpretation of CBC data. Current Interpretive Data was last revised on 2017. Blood specimen (specimen) 10/31/2017 3:57 AM CDT 10/31/2017 4:24 AM CDT Narrative [facility] - 10/31/2017 4:40 AM CDT us Adam Pastor MD LAB BLOOD ORDERABLES Final Re sult [facility] [address] [place] [address] * (ABNORMAL) CBC with auto differential (10/31/2017 3:57 AM CDT) WBC 7.1 3.8 - 9.9 K/cumm [facility] RBC 3.14(L) 4.30 - 5.80 M/cumm [facility] Hgb 9.1(L) 13.0 - 17.5 g/dL [facility] Hct 29.9(L) 38.9 - 50.3 % [facility] MCV 95.2 81.3 - 96.4 fL [facility] MCH 29.0 27.1 - 33.3 pg [facility] MCHC 30.4(L) 32.3 - 35.7 g/dL [facility] RDW CV 18.3(H) 11.1 - 14.9 % [facility] RDW SD 63.6(H) 35.7 - 48.1 fL [facility] Plt 137(L) 150 - 400 K/cumm [facility] MPV 12.9(H) 9.1 - 12.3 fL [facility] NRBC abs 0.00 0.00 - 0.01 K/cumm [facility] Blood specimen (specimen) 10/31/2017 3:57 AM CDT 10/31/2017 4:24 AM CDT Narrative [facility] - 10/31/2017 4:40 AM CDT us Adam Pastor MD LAB BLOOD ORDERABLES Final Re sult [facility] [address] [place] [address] * (ABNORMAL) Basic metabolic panel (10/31/2017 3:57 AM CDT) Sodium 134(L) 135 - 145 mmol/L [facility] Potassium, pl 4.3 3.3 - 4.9 mmol/L [facility] Comment:Moderately Hemolyzed Specimen Chloride 97 97 - 110 mmol/L [facility] CO2 25 22 - 32 mmol/L [facility] BUN 15 8 - 25 mg/dL [facility] Glucose 92 70 - 199 mg/dL [facility] Comment: Interpretive Data Fasting glucose >/= 126 [...] Current interpretive data was last revised 2017. Creatinine 0.73(L) 0.80 - 1.30 mg/dL [facility] Calcium 8.3(L) 8.5 - 10.3 mg/dL [facility] Anion gap 12 2 - 15 mmol/L [facility] Blood specimen (specimen) 10/31/2017 3:57 AM CDT 10/31/2017 4:23 AM CDT Narrative [facility] - 10/31/2017 4:48 AM CDT us Adam Pastor MD LAB BLOOD ORDERABLES Final Re sult [facility] [address] Department [place] [address] * XR Chest Pa Lateral 2 Views (10/30/2017 9:11 AM CDT) Anatomical Region Laterality Modality Body, Chest N/A Computed Radiogr aphy Impressions 10/30/2017 12:18 PM CDT 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 Narrative 10/30/2017 12:18 PM CDT EXAM: ??2 view chest HISTORY: ??Follow-up infiltrates COMPARISON: ??Portable chest 10/22/2017 at 1026 hours FINDINGS: Lung findings are small. Heart size is upper limits normal. ??Pulmonary vascularity is normal. There is bilateral perihilar and bibasilar atelectasis. ??Retrocardiac opacification is present in the previous study has significantly improved. There may be very small residual left pleural effusion. There are degenerative changes in the thoracic spine. Procedure Note Makayla Gallegos MD - 10/30/2017 EXAM: 2 view chest HISTORY: Follow-up infiltrates COMPARISON: Portable chest 10/22/2017 at 1026 hours FINDINGS: Lung findings are small. Heart size is upper limits normal. Pulmonary vascularity is normal. There is bilateral perihilar and bibasilar atelectasis. Retrocardiac opacification is present in the previous study has significantly improved. There may be very small residual left pleural effusion. There are degenerative changes in the thoracic spine. 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 us Александр Espino Jr., MD IMG XR PROCEDURES Final Result * Glucose POC (10/30/2017 6:44 AM CDT) [facility] Glucose, POC 98 70 - 140 mg/dL [facility] Comment: For Glucose values <35 mg/dl when Hematocrit is >60 mg/dl,the test may not accurately detect significant hypoglycemia,and testing in the Laboratory should be considered if clinically indicated. Blood specimen (specimen) 10/30/2017 6:44 AM CDT 10/30/2017 6:44 AM CDT Narrative [facility] - 10/30/2017 6:45 AM CDT us Rachna Burt MD POINT OF CARE TEST ORDERABLES Final Result [facility] [address] [place] [address] * eGFR (10/30/2017 4:01 AM CDT) [facility] eGFR 86 mL/min/1.7 3 m2 [facility] Comment: Interpretive Data Reference Interval Normal ?>/= 90 mL/min/1.73m2 Mildly decreased* ? 60 - 89 mL/min/1.73m2 Mildly to moderately decreased ?45 - 59 mL/min/1.73m2 Moderately to severely decreased ??30 - 44 mL/min/1.73m2 Severely decreased ?15 - 29 mL/min/1.73m2 Kidney Failure ?< 15 ??mL/min/1.73m2 *Relative to young adult level If -Guyanese multiply value by 1.16. Estimated glomerular filtration [...] 70. Current interpretive data was last reviewed 2016. Blood specimen (specimen) 10/30/2017 4:01 AM CDT 10/30/2017 4:30 AM CDT Narrative [facility] - 10/30/2017 4:56 AM CDT Rachna Burt MD LAB BLOOD ORDERABLES Final Re sult Performing Organization Address [facility] Co de Phone Number [facility] [address] [place] [address] * Phosphorus (10/30/2017 4:01 AM CDT) Phosphorus, pl 3.1 2.3 - 4.5 mg/dL [facility] Blood specimen (specimen) 10/30/2017 4:01 AM CDT 10/30/2017 4:30 AM CDT Narrative [facility] - 10/30/2017 4:56 AM CDT Rachna Burt MD LAB BLOOD ORDERABLES Final Re sult Performing Organization Address [facility] de Phone Number [facility] [address] [place], [place] [id number] * (ABNORMAL) Comprehensive metabolic panel (10/30/2017 4:01 AM CDT) Sodium 133(L) 135 - 145 mmol/L [facility] Potassium, pl 4.1 3.3 - 4.9 mmol/L [facility] CO2 25 22 - 32 mmol/L [facility] BUN 15 8 - 25 mg/dL [facility] Glucose 97 70 - 199 mg/dL [facility] Comment: Interpretive Data Fasting glucose >/= 126 [...] Current interpretive data was last revised 2017. Creatinine 0.91 0.80 - 1.30 mg/dL [facility] Calcium 8.9 8.5 - 10.3 mg/dL [facility] Chloride 98 97 - 110 mmol/L [facility] Albumin 3.2(L) 3.5 - 5.0 g/dL [facility] AST 27 10 - 50 Units/L [facility] ALT 47 7 - 55 Units/L [facility] Alk phos 120 40 - 130 Units/L [facility] Bilirubin, total 0.4 0.1 - 1.2 mg/dL [facility] Protein, pl 5.7(L) 6.5 - 8.5 g/dL [facility] Anion gap 10 2 - 15 mmol/L [facility] Blood specimen (specimen) 10/30/2017 4:01 AM CDT 10/30/2017 4:30 AM CDT Narrative [facility] - 10/30/2017 4:56 AM CDT Rachna Burt MD LAB BLOOD ORDERABLES Final Re sult [facility] [address] Department [place] [address] * Glucose POC (10/29/2017 4:58 PM CDT) [facility] Glucose, POC 112 70 - 140 mg/dL [facility] Comment: For Glucose values <35 mg/dl when Hematocrit is >60 mg/dl,the test may not accurately detect significant hypoglycemia,and testing in the Laboratory should be considered if clinically indicated. Blood specimen (specimen) 10/29/2017 4:58 PM CDT 10/29/2017 4:58 PM CDT Narrative [facility] - 10/29/2017 5:00 PM CDT us Rachna Burt MD POINT OF CARE TEST ORDERABLES Final Result Performing Organization Address [facility] Co de Phone Number [facility] [address] [place] [address] * (ABNORMAL) Glucose POC (10/29/2017 11:58 AM CDT) Glucose, POC 157(H) 70 - 140 mg/dL [facility] Comment: For Glucose values <35 mg/dl when Hematocrit is >60 mg/dl,the test may not accurately detect significant hypoglycemia,and testing in the Laboratory should be considered if clinically indicated. Blood specimen (specimen) 10/29/2017 11:58 AM CDT 10/29/2017 11:58 AM CDT Ken [facility] - 10/29/2017 12:00 PM CDT us Rachna Burt MD POINT OF CARE TEST ORDERABLES Final Result Performing Organization Address [facility] de Phone Number [facility] [address] [place] [address] * Glucose POC (10/29/2017 6:22 AM CDT) [facility] Glucose, POC 108 70 - 140 mg/dL [facility] Comment: For Glucose values <35 mg/dl when Hematocrit is >60 mg/dl,the test may not accurately detect significant hypoglycemia,and testing in the Laboratory should be considered if clinically indicated. Blood specimen (specimen) 10/29/2017 6:22 AM CDT 10/29/2017 6:22 AM CDT Narrative [facility] - 10/29/2017 6:25 AM CDT us Rachna Burt MD POINT OF CARE TEST ORDERABLES Final Result Performing Organization Address [facility] Co de Phone Number [facility] [address] [place] [address] * eGFR (10/29/2017 3:07 AM CDT) [facility] eGFR 83 mL/min/1.7 3 m2 [facility] Comment: Interpretive Data Reference Interval Normal ?>/= 90 mL/min/1.73m2 Mildly decreased* ? 60 - 89 mL/min/1.73m2 Mildly to moderately decreased ?45 - 59 mL/min/1.73m2 Moderately to severely decreased ??30 - 44 mL/min/1.73m2 Severely decreased ?15 - 29 mL/min/1.73m2 Kidney Failure ?< 15 ??mL/min/1.73m2 *Relative to young adult level If -Guyanese multiply value by 1.16. Estimated glomerular filtration [...] 70. Current interpretive data was last reviewed 2016. Blood specimen (specimen) 10/29/2017 3:07 AM CDT 10/29/2017 3:25 AM CDT Narrative [facility] - 10/29/2017 4:01 AM CDT us Rachna Burt MD LAB BLOOD ORDERABLES Final Re sult [facility] [address] Department [place] [address] * (ABNORMAL) Comprehensive metabolic panel (10/29/2017 3:07 AM CDT) [facility] Sodium 136 135 - 145 mmol/L [facility] Potassium, pl 4.2 3.3 - 4.9 mmol/L [facility] CO2 27 22 - 32 mmol/L [facility] BUN 15 8 - 25 mg/dL [facility] Glucose 94 70 - 199 mg/dL [facility] Comment: Interpretive Data Fasting glucose >/= 126 [...] Current interpretive data was last revised 2017. Creatinine 0.94 0.80 - 1.30 mg/dL [facility] Calcium 8.4(L) 8.5 - 10.3 mg/dL [facility] Chloride 97 97 - 110 mmol/L [facility] Albumin 3.0(L) 3.5 - 5.0 g/dL [facility] AST 22 10 - 50 Units/L [facility] ALT 45 7 - 55 Units/L [facility] Alk phos 111 40 - 130 Units/L [facility] Bilirubin, total 0.3 0.1 - 1.2 mg/dL [facility] Protein, pl 5.3(L) 6.5 - 8.5 g/dL [facility] Anion gap 12 2 - 15 mmol/L [facility] Blood specimen (specimen) 10/29/2017 3:07 AM CDT 10/29/2017 3:25 AM CDT Narrative [facility] - 10/29/2017 4:01 AM CDT us Rachna Burt MD LAB BLOOD ORDERABLES Final Re sult [facility] [address] [place] [address] * TSH (10/29/2017 3:07 AM CDT) Thyroid Stimulating Hormone 3.710 0.300 - 4.200 mcIUnit/mL [facility] Blood specimen (specimen) 10/29/2017 3:07 AM CDT 10/29/2017 3:25 AM CDT Ken [facility] - 10/29/2017 4:01 AM CDT Rachna Burt MD LAB BLOOD ORDERABLES Final Re sult Performing Organization Address [facility] Co de Phone Number [facility] [address] [facility] [place] [address] * Glucose POC (10/28/2017 8:17 PM CDT) Glucose, POC 126 70 - 140 mg/dL [facility] Comment: For Glucose values <35 mg/dl when Hematocrit is >60 mg/dl,the test may not accurately detect significant hypoglycemia,and testing in the Laboratory should be considered if clinically indicated. Blood specimen (specimen) 10/28/2017 8:17 PM CDT 10/28/2017 8:17 PM CDT Narrative [facility] 10/28/2017 8:26 PM CDT Result [facility] Rachna Burt MD POINT OF CARE TEST ORDERABLES Final Result Performing Organization Address [facility] de Phone Number [facility] [address] [facility] [place] [address] * Glucose POC (10/28/2017 4:45 PM CDT) Glucose, POC 136 70 - 140 mg/dL [facility] Comment: For Glucose values <35 mg/dl when Hematocrit is >60 mg/dl,the test may not accurately detect significant hypoglycemia,and testing in the Laboratory should be considered if clinically indicated. Blood specimen (specimen) 10/28/2017 4:45 PM CDT 10/28/2017 4:45 PM CDT Narrative [facility] - 10/28/2017 4:59 PM CDT Result [facility] Rachna Burt MD POINT OF CARE TEST ORDERABLES Final Result Performing Organization Address [facility] Co de Phone Number [facility] [address] [facility] [place] [address] * Glucose POC (10/28/2017 11:50 AM CDT) Glucose, POC 114 70 - 140 mg/dL [facility] Comment: For Glucose values <35 mg/dl when Hematocrit is >60 mg/dl,the test may not accurately detect significant hypoglycemia,and testing in the Laboratory should be considered if clinically indicated. Blood specimen (specimen) 10/28/2017 11:50 AM CDT 10/28/2017 11:50 AM CDT Ken [facility] - 10/28/2017 11:53 AM CDT Rachna Burt MD POINT OF CARE TEST ORDERABLES Final Result Performing Organization Address [facility] de Phone Number [facility] [address] [place] [address] * Glucose POC (10/28/2017 6:36 AM CDT) Glucose, POC 90 70 - 140 mg/dL [facility] Comment: For Glucose values <35 mg/dl when Hematocrit is >60 mg/dl,the test may not accurately detect significant hypoglycemia,and testing in the Laboratory should be considered if clinically indicated. Blood specimen (specimen) 10/28/2017 6:36 AM CDT 10/28/2017 6:36 AM CDT Narrative [facility] - 10/28/2017 6:40 AM CDT Rachna Burt MD POINT OF CARE TEST ORDERABLES Final Result Performing Organization Address [facility] Co de Phone Number [facility] [address] [place] [address] * eGFR (10/28/2017 4:54 AM CDT) eGFR 89 mL/min/1.7 3 m2 [facility] Comment: Interpretive Data Reference Interval Normal ?>/= 90 mL/min/1.73m2 Mildly decreased* ? 60 - 89 mL/min/1.73m2 Mildly to moderately decreased ?45 - 59 mL/min/1.73m2 Moderately to severely decreased ??30 - 44 mL/min/1.73m2 Severely decreased ?15 - 29 mL/min/1.73m2 Kidney Failure ?< 15 ??mL/min/1.73m2 *Relative to young adult level If -Guyanese multiply value by 1.16. Estimated glomerular filtration [...] 70. Current interpretive data was last reviewed 2016. Blood specimen (specimen) 10/28/2017 4:54 AM CDT 10/28/2017 5:19 AM CDT Narrative [facility] - 10/28/2017 5:48 AM CDT us Rachna Burt MD LAB BLOOD ORDERABLES Final Re sult [facility] [address] Department [place] [address] * (ABNORMAL) Differential, auto (10/28/2017 4:54 AM CDT) Neutrophil abs 6.2 1.7 - 6.5 K/cumm [facility] Imm gran abs 0.1 0.0 - 0.1 K/cumm [facility] Lymphocyte abs 0.5(L) 0.8 - 3.3 K/cumm [facility] Monocyte abs 0.7 0.2 - 0.8 K/cumm [facility] Eosinophil abs 0.2 0.0 - 0.5 K/cumm [facility] Basophil abs 0.0 0.0 - 0.1 K/cumm [facility] Neutrophil pct 80.6 % [facility] Comment: Interpretive Data Percent cell count reference ranges are not reported, since discordance with absolute values may lead to misinterpretation of CBC data. Current Interpretive Data was last revised on 2017. Imm gran pct 1.0 % [facility] Comment: Interpretive Data Percent cell count reference ranges are not reported, since discordance with absolute values may lead to misinterpretation of CBC data. Current Interpretive Data was last revised on 2017. Lymphocyte pct 6.1 % [facility] Comment: Interpretive Data Percent cell count reference ranges are not reported, since discordance with absolute values may lead to misinterpretation of CBC data. Current Interpretive Data was last revised on 2017. Monocyte pct 9.4 % [facility] Comment: Interpretive Data Percent cell count reference ranges are not reported, since discordance with absolute values may lead to misinterpretation of CBC data. Current Interpretive Data was last revised on 2017. Eosinophil pct 2.8 % [facility] Comment: Interpretive Data Percent cell count reference ranges are not reported, since discordance with absolute values may lead to misinterpretation of CBC data. Current Interpretive Data was last revised on 2017. Basophil pct 0.1 % [facility] Comment: Interpretive Data Percent cell count reference ranges are not reported, since discordance with absolute values may lead to misinterpretation of CBC data. Current Interpretive Data was last revised on 2017. Blood specimen (specimen) 10/28/2017 4:54 AM CDT 10/28/2017 5:18 AM CDT Narrative [facility] - 10/28/2017 5:27 AM CDT Adam Pastor MD LAB BLOOD ORDERABLES Final Re sult [facility] [address] Department [place] [address] * (ABNORMAL) Comprehensive metabolic panel (10/28/2017 4:54 AM CDT) Sodium 134(L) 135 - 145 mmol/L [facility] Potassium, pl 4.3 3.3 - 4.9 mmol/L [facility] CO2 26 22 - 32 mmol/L [facility] BUN 15 8 - 25 mg/dL [facility] Glucose 97 70 - 199 mg/dL [facility] Comment: Interpretive Data Fasting glucose >/= 126 [...] Current interpretive data was last revised 2017. Creatinine 0.86 0.80 - 1.30 mg/dL [facility] Calcium 8.9 8.5 - 10.3 mg/dL [facility] Chloride 98 97 - 110 mmol/L [facility] Albumin 3.0(L) 3.5 - 5.0 g/dL [facility] AST 20 10 - 50 Units/L [facility] ALT 47 7 - 55 Units/L [facility] Alk phos 106 40 - 130 Units/L [facility] Bilirubin, total 0.4 0.1 - 1.2 mg/dL [facility] Protein, pl 5.4(L) 6.5 - 8.5 g/dL [facility] Anion gap 10 2 - 15 mmol/L [facility] Blood specimen (specimen) 10/28/2017 4:54 AM CDT 10/28/2017 5:19 AM CDT Narrative [facility] - 10/28/2017 5:48 AM CDT us Rachna Burt MD LAB BLOOD ORDERABLES Final Re sult Performing Organization Address City/State/[facility] Co de Phone Number [facility] [address] [place] [address] * Osmolality, blood (10/28/2017 4:54 AM CDT) [facility] Osmo 277 275 - 295 mOsm/kg [facility] Blood specimen (specimen) 10/28/2017 4:54 AM CDT 10/28/2017 5:20 AM CDT Narrative [facility] - 10/28/2017 5:39 AM CDT us Adam Pastor MD LAB BLOOD ORDERABLES Final Re sult Performing Organization Address [facility] de Phone Number [facility] [address] Department [place] [address] * (ABNORMAL) CBC with auto differential (10/28/2017 4:54 AM CDT) [facility] WBC 7.8 3.8 - 9.9 K/cumm [facility] RBC 3.11(L) 4.30 - 5.80 M/cumm [facility] Hgb 9.0(L) 13.0 - 17.5 g/dL [facility] Hct 29.4(L) 38.9 - 50.3 % [facility] MCV 94.5 81.3 - 96.4 fL [facility] MCH 28.9 27.1 - 33.3 pg [facility] MCHC 30.6(L) 32.3 - 35.7 g/dL [facility] RDW CV 18.3(H) 11.1 - 14.9 % [facility] RDW SD 63.6(H) 35.7 - 48.1 fL [facility] Plt 156 150 - 400 K/cumm [facility] MPV 12.7(H) 9.1 - 12.3 fL [facility] NRBC abs 0.00 0.00 - 0.01 K/cumm [facility] Blood specimen (specimen) 10/28/2017 4:54 AM CDT 10/28/2017 5:18 AM CDT [facility] - 10/28/2017 5:27 AM CDT Adam Pastor MD LAB BLOOD ORDERABLES Final Re sult Performing Organization Address [facility] Co de Phone Number [facility] [address] [facility] [place] [address] * Glucose POC (10/27/2017 9:55 PM CDT) Glucose, POC 107 70 - 140 mg/dL [facility] Comment: For Glucose values <35 mg/dl when Hematocrit is >60 mg/dl,the test may not accurately detect significant hypoglycemia,and testing in the Laboratory should be considered if clinically indicated. Blood specimen (specimen) 10/27/2017 9:55 PM CDT 10/27/2017 9:55 PM CDT Ken [facility] - 10/27/2017 10:17 PM CDT Result [facility] Rachna Burt MD POINT OF CARE TEST ORDERABLES Final Result Performing Organization Address [facility] de Phone Number [facility] [address] [place] [address] * (ABNORMAL) Glucose POC (10/27/2017 4:57 PM CDT) Glucose, POC 156(H) 70 - 140 mg/dL [facility] Comment: For Glucose values <35 mg/dl when Hematocrit is >60 mg/dl,the test may not accurately detect significant hypoglycemia,and testing in the Laboratory should be considered if clinically indicated. Blood specimen (specimen) 10/27/2017 4:57 PM CDT 10/27/2017 4:57 PM CDT Ken [facility] - 10/27/2017 4:59 PM CDT Rachna Burt MD POINT OF CARE TEST ORDERABLES Final Result Performing Organization Address [facility]/ZIP Co de Phone Number [facility] [address] [address] * Glucose POC (10/27/2017 11:51 AM CDT) Glucose, POC 110 70 - 140 mg/dL [facility] Comment: For Glucose values <35 mg/dl when Hematocrit is >60 mg/dl,the test may not accurately detect significant hypoglycemia,and testing in the Laboratory should be considered if clinically indicated. Blood specimen (specimen) 10/27/2017 11:51 AM CDT 10/27/2017 11:51 AM CDT Ken [facility] - 10/27/2017 11:53 AM CDT Rachna Burt MD POINT OF CARE TEST ORDERABLES Final Result Performing Organization Address [facility] de Phone Number [facility] [address] [place] [address] * Glucose POC (10/27/2017 6:18 AM CDT) Glucose, POC 90 70 - 140 mg/dL [facility] Comment: For Glucose values <35 mg/dl when Hematocrit is >60 mg/dl,the test may not accurately detect significant hypoglycemia,and testing in the Laboratory should be considered if clinically indicated. Blood specimen (specimen) 10/27/2017 6:18 AM CDT 10/27/2017 6:18 AM CDT Narrative [facility] - 10/27/2017 6:28 AM CDT Rachna Burt MD POINT OF CARE TEST ORDERABLES Final Result Performing Organization Address [facility] Co de Phone Number [facility] [address] [address] * eGFR (10/27/2017 3:57 AM CDT) eGFR 88 mL/min/1.7 3 m2 [facility] Comment: Interpretive Data Reference Interval Normal ?>/= 90 mL/min/1.73m2 Mildly decreased* ? 60 - 89 mL/min/1.73m2 Mildly to moderately decreased ?45 - 59 mL/min/1.73m2 Moderately to severely decreased ??30 - 44 mL/min/1.73m2 Severely decreased ?15 - 29 mL/min/1.73m2 Kidney Failure ?< 15 ??mL/min/1.73m2 *Relative to young adult level If -Guyanese multiply value by 1.16. Estimated glomerular filtration [...] 70. Current interpretive data was last reviewed 2016. Blood specimen (specimen) 10/27/2017 3:57 AM CDT 10/27/2017 4:29 AM CDT Narrative [facility] - 10/27/2017 4:55 AM CDT us Rachna Burt MD LAB BLOOD ORDERABLES Final Re sult [facility] [address] Department of Laboratories [place], [place] [id number] * (ABNORMAL) Comprehensive metabolic panel (10/27/2017 3:57 AM CDT) Sodium 132(L) 135 - 145 mmol/L [facility] Potassium, pl 4.3 3.3 - 4.9 mmol/L [facility] CO2 26 22 - 32 mmol/L [facility] BUN 17 8 - 25 mg/dL [facility] Glucose 87 70 - 199 mg/dL [facility] Comment: Interpretive Data Fasting glucose >/= 126 [...] Current interpretive data was last revised 2017. Creatinine 0.89 0.80 - 1.30 mg/dL [facility] Calcium 8.8 8.5 - 10.3 mg/dL [facility] Chloride 96(L) 97 - 110 mmol/L [facility] Albumin 2.9(L) 3.5 - 5.0 g/dL [facility] AST 31 10 - 50 Units/L [facility] Comment:Slightly Hemolyzed S pecimen ALT 59(H) 7 - 55 Units/L [facility] Alk phos 111 40 - 130 Units/L [facility] Bilirubin, total 0.5 0.1 - 1.2 mg/dL [facility] Protein, pl 5.3(L) 6.5 - 8.5 g/dL [facility] Anion gap 10 2 - 15 mmol/L [facility] Blood specimen (specimen) 10/27/2017 3:57 AM CDT 10/27/2017 4:29 AM CDT Narrative [facility] - 10/27/2017 4:55 AM CDT us Rachna Burt MD LAB BLOOD ORDERABLES Final Re sult [facility] [address] Department [place] [address] * Glucose POC (10/26/2017 10:33 PM CDT) [facility] Glucose, POC 121 70 - 140 mg/dL [facility] [facility] Comment: For Glucose values <35 mg/dl when Hematocrit is >60 mg/dl,the test may not accurately detect significant hypoglycemia,and testing in the Laboratory should be considered if clinically indicated. Blood specimen (specimen) 10/26/2017 10:33 PM CDT 10/26/2017 10:33 PM CDT Ken [facility] - 10/26/2017 10:34 PM CDT Rachna Burt MD POINT OF CARE TEST ORDERABLES Final Result Performing Organization Address [facility] de Phone Number [facility] [address] [place] [address] * Glucose POC (10/26/2017 5:01 PM CDT) Glucose, POC 131 70 - 140 mg/dL [facility] Comment: For Glucose values <35 mg/dl when Hematocrit is >60 mg/dl,the test may not accurately detect significant hypoglycemia,and testing in the Laboratory should be considered if clinically indicated. Blood specimen (specimen) 10/26/2017 5:01 PM CDT 10/26/2017 5:01 PM CDT Ken [facility] - 10/26/2017 5:06 PM CDT Result [facility] Rachna Burt MD POINT OF CARE TEST ORDERABLES Final Result Performing Organization Address [facility] de Phone Number [facility] [address] [place] [address] * Glucose POC (10/26/2017 12:02 PM CDT) Glucose, POC 106 70 - 140 mg/dL [facility] Comment: For Glucose values <35 mg/dl when Hematocrit is >60 mg/dl,the test may not accurately detect significant hypoglycemia,and testing in the Laboratory should be considered if clinically indicated. Blood specimen (specimen) 10/26/2017 12:02 PM CDT 10/26/2017 12:02 PM CDT Ken [facility] - 10/26/2017 12:05 PM CDT Result [facility] Rachna Burt MD POINT OF CARE TEST ORDERABLES Final Result Performing Organization Address [facility] de Phone Number [facility] [address] [facility] [place] [address] * Glucose POC (10/26/2017 6:21 AM CDT) Pathologist [facility] Glucose, POC 97 70 - 140 mg/dL [facility] Comment: For Glucose values <35 mg/dl when Hematocrit is >60 mg/dl,the test may not accurately detect significant hypoglycemia,and testing in the Laboratory should be considered if clinically indicated. Blood specimen (specimen) 10/26/2017 6:21 AM CDT 10/26/2017 6:21 AM CDT Narrative [facility] - 10/26/2017 6:24 AM CDT Rachna Burt MD POINT OF CARE TEST ORDERABLES Final Result Performing Organization Address [facility] de Phone Number [facility] [address] [place] [address] * eGFR (10/26/2017 4:03 AM CDT) [facility] eGFR 88 mL/min/1.7 3 m2 [facility] Comment: Interpretive Data Reference Interval Normal ?>/= 90 mL/min/1.73m2 Mildly decreased* ? 60 - 89 mL/min/1.73m2 Mildly to moderately decreased ?45 - 59 mL/min/1.73m2 Moderately to severely decreased ??30 - 44 mL/min/1.73m2 Severely decreased ?15 - 29 mL/min/1.73m2 Kidney Failure ?< 15 ??mL/min/1.73m2 *Relative to young adult level If -Guyanese multiply value by 1.16. Estimated glomerular filtration [...] 70. Current interpretive data was last reviewed 2016. Blood specimen (specimen) 10/26/2017 4:03 AM CDT 10/26/2017 4:21 AM CDT Narrative [facility] - 10/26/2017 4:48 AM CDT us Rachna Burt MD LAB BLOOD ORDERABLES Final Re sult [facility] [address] [place] [address] * (ABNORMAL) Differential, auto (10/26/2017 4:03 AM CDT) Neutrophil abs 7.7(H) 1.7 - 6.5 K/cumm [facility] Imm gran abs 0.1 0.0 - 0.1 K/cumm [facility] Lymphocyte abs 0.6(L) 0.8 - 3.3 K/cumm [facility] Monocyte abs 0.8 0.2 - 0.8 K/cumm [facility] Eosinophil abs 0.1 0.0 - 0.5 K/cumm [facility] Basophil abs 0.0 0.0 - 0.1 K/cumm [facility] Neutrophil pct 83.1 % [facility] Comment: Interpretive Data Percent cell count reference ranges are not reported, since discordance with absolute values may lead to misinterpretation of CBC data. Current Interpretive Data was last revised on 2017. Imm gran pct 1.1 % [facility] Comment: Interpretive Data Percent cell count reference ranges are not reported, since discordance with absolute values may lead to misinterpretation of CBC data. Current Interpretive Data was last revised on 2017. Lymphocyte pct 6.2 % [facility] Comment: Interpretive Data Percent cell count reference ranges are not reported, since discordance with absolute values may lead to misinterpretation of CBC data. Current Interpretive Data was last revised on 2017. Monocyte pct 8.6 % [facility] Comment: Interpretive Data Percent cell count reference ranges are not reported, since discordance with absolute values may lead to misinterpretation of CBC data. Current Interpretive Data was last revised on 2017. Eosinophil pct 1.0 % [facility] Comment: Interpretive Data Percent cell count reference ranges are not reported, since discordance with absolute values may lead to misinterpretation of CBC data. Current Interpretive Data was last revised on 2017. Basophil pct 0.0 % [facility] Comment: Interpretive Data Percent cell count reference ranges are not reported, since discordance with absolute values may lead to misinterpretation of CBC data. Current Interpretive Data was last revised on 2017. Blood specimen (specimen) 10/26/2017 4:03 AM CDT 10/26/2017 4:21 AM CDT Narrative [facility] - 10/26/2017 4:31 AM CDT us Adam Pastor MD LAB BLOOD ORDERABLES Final Re sult [facility] [address] Department [place] [address] * (ABNORMAL) Comprehensive metabolic panel (10/26/2017 4:03 AM CDT) Sodium 136 135 - 145 mmol/L [facility] Potassium, pl 4.6 3.3 - 4.9 mmol/L [facility] CO2 26 22 - 32 mmol/L [facility] BUN 20 8 - 25 mg/dL [facility] Glucose 89 70 - 199 mg/dL [facility] Comment: Interpretive Data Fasting glucose >/= 126 [...] Current interpretive data was last revised 2017. Creatinine 0.88 0.80 - 1.30 mg/dL [facility] Calcium 9.0 8.5 - 10.3 mg/dL [facility] Chloride 99 97 - 110 mmol/L [facility] Albumin 3.1(L) 3.5 - 5.0 g/dL [facility] AST 29 10 - 50 Units/L [facility] ALT 65(H) 7 - 55 Units/L [facility] Alk phos 114 40 - 130 Units/L [facility] Bilirubin, total 0.5 0.1 - 1.2 mg/dL [facility] Protein, pl 5.4(L) 6.5 - 8.5 g/dL [facility] Anion gap 11 2 - 15 mmol/L [facility] Blood specimen (specimen) 10/26/2017 4:03 AM CDT 10/26/2017 4:21 AM CDT Narrative [facility] - 10/26/2017 4:48 AM CDT us Rachna Burt MD LAB BLOOD ORDERABLES Final Re sult [facility] [address] [place] [address] * (ABNORMAL) Vitamin D 25 hydroxy (10/26/2017 4:03 AM CDT) Vitamin D 25-OH 18(L) 30 - 80 ng/mL [facility] Blood specimen (specimen) 10/26/2017 4:03 AM CDT 10/26/2017 4:21 AM CDT Narrative [facility] - 10/26/2017 6:54 AM CDT us Adam Pastor MD LAB BLOOD ORDERABLES Final Re sult Performing Organization Address [facility] Co de Phone Number [facility] [address] [facility] [place] [address] * Phosphorus (10/26/2017 4:03 AM CDT) [facility] Phosphorus, pl 2.9 2.3 - 4.5 mg/dL [facility] Blood specimen (specimen) 10/26/2017 4:03 AM CDT 10/26/2017 4:21 AM CDT Narrative [facility] - 10/26/2017 4:48 AM CDT us Adam Pastor MD LAB BLOOD ORDERABLES Final Re sult Performing Organization Address [facility] Co de Phone Number [facility] [address] [facility] [place] [address] * Magnesium (10/26/2017 4:03 AM CDT) [facility] Magnesium 1.63 1.40 - 2.50 mg/dL [facility] Blood specimen (specimen) 10/26/2017 4:03 AM CDT 10/26/2017 4:21 AM CDT Narrative [facility] - 10/26/2017 4:48 AM CDT us Adam Pastor MD LAB BLOOD ORDERABLES Final Re sult Performing Organization Address [facility] Co de Phone Number [facility] [address] [place] [address] * (ABNORMAL) CBC with auto differential (10/26/2017 4:03 AM CDT) [facility] WBC 9.2 3.8 - 9.9 K/cumm [facility] RBC 3.28(L) 4.30 - 5.80 M/cumm [facility] Hgb 9.5(L) 13.0 - 17.5 g/dL [facility] Hct 31.1(L) 38.9 - 50.3 % [facility] MCV 94.8 81.3 - 96.4 fL [facility] MCH 29.0 27.1 - 33.3 pg [facility] MCHC 30.5(L) 32.3 - 35.7 g/dL [facility] RDW CV 18.1(H) 11.1 - 14.9 % [facility] RDW SD 63.0(H) 35.7 - 48.1 fL [facility] Plt 152 150 - 400 K/cumm [facility] MPV 12.3 9.1 - 12.3 fL [facility] NRBC abs 0.00 0.00 - 0.01 K/cumm [facility] Blood specimen (specimen) 10/26/2017 4:03 AM CDT 10/26/2017 4:21 AM CDT Narrative [facility] - 10/26/2017 4:31 AM CDT us Adam Pastor MD LAB BLOOD ORDERABLES Final Re sult Performing Organization Address [facility]/ZIP Co de Phone Number [facility] [address] Department [employer] [place], [place] [id number] * Glucose POC (10/25/2017 10:00 PM CDT) [facility] Glucose, POC 137 70 - 140 mg/dL [facility] Comment: For Glucose values <35 mg/dl when Hematocrit is >60 mg/dl,the test may not accurately detect significant hypoglycemia,and testing in the Laboratory should be considered if clinically indicated. Blood specimen (specimen) 10/25/2017 10:00 PM CDT 10/25/2017 10:00 PM CDT Narrative [facility] - 10/25/2017 10:01 PM CDT us Rachna Burt MD POINT OF CARE TEST ORDERABLES Final Result Performing Organization Address [facility]/ZIP Co de Phone Number [facility] [address] [place] [address] * Glucose POC (10/25/2017 4:25 PM CDT) Glucose, POC 95 70 - 140 mg/dL [facility] Comment: For Glucose values <35 mg/dl when Hematocrit is >60 mg/dl,the test may not accurately detect significant hypoglycemia,and testing in the Laboratory should be considered if clinically indicated. Blood specimen (specimen) 10/25/2017 4:25 PM CDT 10/25/2017 4:25 PM CDT [facility] - 10/25/2017 4:36 PM CDT Rachna Burt MD POINT OF CARE TEST ORDERABLES Final Result Performing Organization Address [facility] Co de Phone Number [facility] [address] [facility] [place] [address] * Glucose POC (10/25/2017 12:04 PM CDT) Glucose, POC 88 70 - 140 mg/dL [facility] Comment: For Glucose values <35 mg/dl when Hematocrit is >60 mg/dl,the test may not accurately detect significant hypoglycemia,and testing in the Laboratory should be considered if clinically indicated. Blood specimen (specimen) 10/25/2017 12:04 PM CDT 10/25/2017 12:04 PM CDT Narrative [facility] - 10/25/2017 12:08 PM CDT Rachna Burt MD POINT OF CARE TEST ORDERABLES Final Result Performing Organization Address [facility] Co de Phone Number [facility] [address] [facility] [place] [address] * Glucose POC (10/25/2017 6:07 AM CDT) Glucose, POC 87 70 - 140 mg/dL [facility] Comment: For Glucose values <35 mg/dl when Hematocrit is >60 mg/dl,the test may not accurately detect significant hypoglycemia,and testing in the Laboratory should be considered if clinically indicated. Blood specimen (specimen) 10/25/2017 6:07 AM CDT 10/25/2017 6:07 AM CDT Narrative [facility] - 10/25/2017 6:08 AM CDT us Rachna Burt MD POINT OF CARE TEST ORDERABLES Final Result [facility] [address] Department [place] [address] * eGFR (10/25/2017 5:40 AM CDT) eGFR 87 mL/min/1.7 3 m2 [facility] Comment: Interpretive Data Reference Interval Normal ?>/= 90 mL/min/1.73m2 Mildly decreased* ? 60 - 89 mL/min/1.73m2 Mildly to moderately decreased ?45 - 59 mL/min/1.73m2 Moderately to severely decreased ??30 - 44 mL/min/1.73m2 Severely decreased ?15 - 29 mL/min/1.73m2 Kidney Failure ?< 15 ??mL/min/1.73m2 *Relative to young adult level If -Guyanese multiply value by 1.16. Estimated glomerular filtration [...] 70. Current interpretive data was last reviewed 2016. Blood specimen (specimen) 10/25/2017 5:40 AM CDT 10/25/2017 6:05 AM CDT Narrative [facility] - 10/25/2017 6:31 AM CDT us Rachna Burt MD LAB BLOOD ORDERABLES Final Re sult [facility] [address] [place] [address] * (ABNORMAL) Differential, auto (10/25/2017 5:40 AM CDT) Neutrophil abs 6.6(H) 1.7 - 6.5 K/cumm [facility] Imm gran abs 0.1 0.0 - 0.1 K/cumm [facility] Lymphocyte abs 0.6(L) 0.8 - 3.3 K/cumm [facility] Monocyte abs 0.7 0.2 - 0.8 K/cumm [facility] Eosinophil abs 0.0 0.0 - 0.5 K/cumm [facility] Basophil abs 0.0 0.0 - 0.1 K/cumm [facility] Neutrophil pct 82.6 % [facility] Comment: Interpretive Data Percent cell count reference ranges are not reported, since discordance with absolute values may lead to misinterpretation of CBC data. Current Interpretive Data was last revised on 2017. Imm gran pct 1.0 % [facility] Comment: Interpretive Data Percent cell count reference ranges are not reported, since discordance with absolute values may lead to misinterpretation of CBC data. Current Interpretive Data was last revised on 2017. Lymphocyte pct 7.0 % [facility] Comment: Interpretive Data Percent cell count reference ranges are not reported, since discordance with absolute values may lead to misinterpretation of CBC data. Current Interpretive Data was last revised on 2017. Monocyte pct 8.7 % [facility] Comment: Interpretive Data Percent cell count reference ranges are not reported, since discordance with absolute values may lead to misinterpretation of CBC data. Current Interpretive Data was last revised on 2017. Eosinophil pct 0.6 % [facility] Comment: Interpretive Data Percent cell count reference ranges are not reported, since discordance with absolute values may lead to misinterpretation of CBC data. Current Interpretive Data was last revised on 2017. Basophil pct 0.1 % [facility] Comment: Interpretive Data Percent cell count reference ranges are not reported, since discordance with absolute values may lead to misinterpretation of CBC data. Current Interpretive Data was last revised on 2017. Blood specimen (specimen) 10/25/2017 5:40 AM CDT 10/25/2017 6:05 AM CDT Narrative [facility] - 10/25/2017 6:14 AM CDT us Rachna Burt MD LAB BLOOD ORDERABLES Final Re sult [facility] [address] Department [place] [address] * (ABNORMAL) Comprehensive metabolic panel (10/25/2017 5:40 AM CDT) Sodium 139 135 - 145 mmol/L [facility] Potassium, pl 4.7 3.3 - 4.9 mmol/L [facility] CO2 30 22 - 32 mmol/L [facility] BUN 24 8 - 25 mg/dL [facility] Glucose 82 70 - 199 mg/dL [facility] Comment: Interpretive Data Fasting glucose >/= 126 [...] Current interpretive data was last revised 2017. Creatinine 0.90 0.80 - 1.30 mg/dL [facility] Calcium 8.5 8.5 - 10.3 mg/dL [facility] Chloride 99 97 - 110 mmol/L [facility] Albumin 3.0(L) 3.5 - 5.0 g/dL [facility] AST 30 10 - 50 Units/L [facility] ALT 72(H) 7 - 55 Units/L [facility] Alk phos 123 40 - 130 Units/L [facility] Bilirubin, total 0.5 0.1 - 1.2 mg/dL [facility] Protein, pl 5.0(L) 6.5 - 8.5 g/dL [facility] Anion gap 10 2 - 15 mmol/L [facility] Blood specimen (specimen) 10/25/2017 5:40 AM CDT 10/25/2017 6:05 AM CDT Narrative [facility] - 10/25/2017 6:31 AM CDT us Rachna Burt MD LAB BLOOD ORDERABLES Final Re sult [facility] [address] Department [place] [address] * (ABNORMAL) CBC with auto differential (10/25/2017 5:40 AM CDT) WBC 8.0 3.8 - 9.9 K/cumm [facility] RBC 3.13(L) 4.30 - 5.80 M/cumm [facility] Hgb 9.1(L) 13.0 - 17.5 g/dL [facility] Hct 30.3(L) 38.9 - 50.3 % [facility] MCV 96.8(H) 81.3 - 96.4 fL [facility] MCH 29.1 27.1 - 33.3 pg [facility] MCHC 30.0(L) 32.3 - 35.7 g/dL [facility] RDW CV 17.9(H) 11.1 - 14.9 % [facility] RDW SD 64.8(H) 35.7 - 48.1 fL [facility] Plt 155 150 - 400 K/cumm [facility] MPV 12.2 9.1 - 12.3 fL [facility] NRBC abs 0.00 0.00 - 0.01 K/cumm [facility] Blood specimen (specimen) 10/25/2017 5:40 AM CDT 10/25/2017 6:05 AM CDT Narrative [facility] - 10/25/2017 6:14 AM CDT Rachna Burt MD LAB BLOOD ORDERABLES Final Re sult Performing Organization Address [facility]/ZIP Co de Phone Number [facility] [address] [place] [address] * Glucose POC (10/24/2017 10:34 PM CDT) [facility] Glucose, POC 125 70 - 140 mg/dL [facility] Comment: For Glucose values <35 mg/dl when Hematocrit is >60 mg/dl,the test may not accurately detect significant hypoglycemia,and testing in the Laboratory should be considered if clinically indicated. Blood specimen (specimen) 10/24/2017 10:34 PM CDT 10/24/2017 10:34 PM CDT Ken [facility] - 10/24/2017 10:35 PM CDT Rachna Burt MD POINT OF CARE TEST ORDERABLES Final Result Performing Organization Address [facility] Co de Phone Number [facility] [address] [place] [address] documented in this encounter Visit Diagnoses Diagnosis Former smoker Personal history of tobacco use, presenting hazards to health COPD (chronic obstructive pulmonary disease) (HCC) Chronic airway obstruction, not elsewhere classified Hypercapnic respiratory failure (CMS/HCC) (HCC) Chronic atrial fibrillation (HCC) Atrial fibrillation Diskitis Other and unspecified disc disorder of unspecified region Pneumonia Pneumonia, organism unspecified Hyponatremia Hyposmolality and/or hyponatremia documented in this encounter Administered Medications Inactive Administered Medications - up to 3 most recent administrations Medication Order MAR Action Action Date Dose Rate Site acetaminophen (TYLENOL) tablet 650 mg 650 mg, oral, Every 4 hours PRN, 1st line for pain, Starting on 10/24/17 at 2005 Given 2017 11:22 AM CDT 650 mg Given 11/09/2017 2:24 PM CDT 650 mg Given 11/08/2017 5:47 PM CDT 650 mg amiodarone (PACERONE) tablet 200 mg 200 mg, oral, 2 times daily, First dose on Tue10/24/17 at 2115 Given 2017 8:42 AM CDT 200 mg Given 11/09/2017 7:46 PM CDT 200 mg Given 11/09/2017 8:36 AM CDT 200 mg apixaban (ELIQUIS) tablet 5 mg 5 mg, oral, 2 times daily, First dose on Tue10/24/17 at 2115, May crush and suspend in 60 ml of water, D5W, apple juice or apple sauce. If on heparin infusion, discontinue heparin infusion upon first administration of apixaban., Indications: atrial fibrillation, VTE ProphylaxisIndications:atrial fibrillation,VTE Prophylaxis Given 2017 8:42 AM CDT 5 mg Given 11/09/2017 7:46 PM CDT 5 mg Given 11/09/2017 8:36 AM CDT 5 mg ascorbic acid (VITAMIN C) tablet/chewable tablet 500 mg 500 mg, oral, 2 times daily, First dose on Tue10/25/17 at 1115 Given 2017 8:42 AM CDT 500 mg Given 11/09/2017 7:46 PM CDT 500 mg Given 11/09/2017 8:37 AM CDT 500 mg aspirin enteric coated tablet 81 mg 81 mg, oral, Daily, First dose on Tue10/25/17 at 0900, Do not crush or chew Given 2017 8:44 AM CDT 81 mg Given 11/09/2017 8:36 AM CDT 81 mg Given 11/08/2017 8:53 AM CDT 81 mg atorvastatin (LIPITOR) tablet 20 mg 20 mg, oral, Daily, First dose on Tue10/25/17 at 0900 Given 2017 8:42 AM CDT 20 mg Given 11/09/2017 8:36 AM CDT 20 mg Given 11/08/2017 8:53 AM CDT 20 mg bacitracin 500 unit/gram ointment packet 1 application 1 application (deactivated), topical, Daily, First dose on Tue11/05/17 at 1530, Apply to bilateral third toes(distal) and left great toe wounds and cover with bandaid x 1 week or until healed., Apply to affected area: foot, Laterality: Bilateral Given 2017 8:44 AM CDT 1 application (deactivated) Given 11/09/2017 8:41 AM CDT 1 application (deactivat ed) Given 11/08/2017 8:57 AM CDT 1 application (deactivat ed) baclofen (LIORESAL) tablet 10 mg 10 mg, oral, 3 times daily with meals, First dose (after last modification) on Tue11/07/17 at 1200 Given 2017 11:56 AM CDT 10 mg Given 2017 8:42 AM CDT 10 mg Given 11/09/2017 5:25 PM CDT 10 mg baclofen (LIORESAL) tablet 5 mg 5 mg, oral, Every 6 hours PRN, muscle spasms, Starting on Tue10/31/17 at 1705 Given 11/03/2017 12:14 PM CDT 5 mg Given 11/02/2017 2:06 PM CDT 5 mg Given 11/02/2017 7:17 AM CDT 5 mg baclofen (LIORESAL) tablet 5 mg 5 mg, oral, 3 times daily with meals, First dose (after last modification) on Kellen 11/03/17 at 1800 Given 11/07/2017 9:50 AM CDT 5 mg Given 11/06/2017 4:45 PM CDT 5 mg Given 11/06/2017 11:50 AM CDT 5 mg bisacodyl (DULCOLAX) suppository 10 mg 10 mg, rectal, Daily PRN, constipation, Starting on 10/29/17 at 0737 Given 11/06/2017 6:24 PM CDT 10 mg Given 10/29/2017 9:39 PM CDT 10 mg bisacodyl EC (DULCOLAX EC) tablet 5 mg 5 mg, oral, 2 times daily PRN, constipation, Starting on 10/29/17 at 0737, Do not crush or chew Given 11/07/2017 10:12 AM CDT 5 mg Given 11/06/2017 10:22 PM CDT 5 mg Given 11/06/2017 7:59 AM CDT 5 mg budesonide-formoterol (SYMBICORT) 80-4.5 mcg/actuation inhaler 1 puff 1 puff, inhalation, 2 times daily (correspondent), First dose (after last modification) on Tue10/24/17 at 2145, Rinse mouth with water after use to reduce aftertaste and incidence of candidiasis. Do not swallow. Given 2017 9:27 AM CDT 1 puff Given 11/09/2017 8:25 PM CDT 1 puff Given 11/09/2017 8:24 AM CDT 1 puff bumetanide (BUMEX) tablet 0.25 mg 0.25 mg, oral, Daily, First dose on Tue10/25/17 at 0900 Given 10/26/2017 8:01 AM CDT 0.25 mg Given 10/25/2017 7:51 AM CDT 0.25 mg bumetanide (BUMEX) tablet 0.25 mg 0.25 mg, oral, Daily, First dose (after last modification) on Tue10/28/17 at 0900 Given 10/28/2017 8:56 AM CDT 0.25 mg bumetanide (BUMEX) tablet 0.5 mg 0.5 mg, oral, Daily, First dose (after last modification) on Tue10/29/17 at 0900 Given 2017 8:42 AM CDT 0.5 mg Given 11/09/2017 8:36 AM CDT 0.5 mg Given 11/08/2017 8:53 AM CDT 0.5 mg camphor-menthol (SARNA) 0.5-0.5 % lotion topical, As needed, itching, Starting on Tue11/07/17 at 0859, Apply to affected area: other Given 11/09/2017 3:24 AM CD T Given 11/07/2017 9:59 PM CDT Given 11/07/2017 2:36 PM CDT chlorhexidine (PERIDEX) 0.12 % solution 5 mL 5 mL, mouth/throat, 2 times daily, First dose on Tue10/24/17 at 2115 Given 2017 8:41 AM CDT 5 mL Given 11/09/2017 11:00 PM CDT 5 mL Given 11/08/2017 9:38 PM CDT 5 mL collagenase 250 unit/gram ointment topical, Daily, First dose on Tue10/25/17 at 1730, Use with wet to dry dressing change to left mid back wound., Apply to affected area: wound Given 2017 8:46 AM CDT Given 11/09/2017 8:42 AM CDT Given 11/08/2017 8:54 AM CDT dextrose (GLUTOSE) 40 % gel 15 g 15 g, oral, Every 15 min PRN, low blood sugar, blood glucose less than 70 mg/dL, Starting on Tue10/24/17 at 8, If patient is alert and able to eat/drink, give 15 gram glucose or one juice (4 fluid ounces) NOT OR[employer] STATES GLUTOSE-15 CONTAINS GLUCOSE 40% W/W (50% W/V) dextrose 50% (concentrated solution) CONCENTRATED solution 25 g 25 g, intravenous, Every 15 min PRN, low blood sugar, blood glucose less than 70 mg/dL, Starting on Tue10/24/17 at 2057, If patient is NPO or unresponsive, give dextrose 50% IV Push over 2 minutes., Indications: HypoglycemiaIndications:Hypoglycemia diphenhydrAMINE (BENADRYL) tab/cap 25 mg 25 mg, oral, 3 times daily PRN, itching, Starting on Tue10/24/17 at 2008 Given 11/03/2017 9:30 PM CDT 25 mg diphenhydrAMINE (BENADRYL) tab/cap 25 mg 25 mg, oral, 4 times daily PRN, itching, Starting on Tue11/04/17 at 0828 Given 2017 8:42 AM CDT 25 mg Given 11/09/2017 7:47 PM CDT 25 mg Given 11/09/2017 2:24 PM CDT 25 mg docusate sodium (COLACE) capsule 100 mg 100 mg, oral, 2 times daily, First dose on Tue10/24/17 at 2115, Indications: constipationIndications:constipation Given 10/28/2017 8:12 PM CDT 100 mg Given 10/28/2017 8:55 AM CDT 100 mg Given 10/27/2017 9:56 PM CDT 100 mg docusate sodium (COLACE) capsule 100 mg 100 mg, oral, 2 times daily, First dose on Tue10/29/17 at 0900, Indications: constipationIndications:constipation Given 2017 8:42 AM CDT 100 mg Given 11/09/2017 7:46 PM CDT 100 mg Given 11/09/2017 8:36 AM CDT 100 mg ergocalciferol (VITAMIN D) capsule 50,000 Units 50,000 Units, oral, Weekly, First dose on Tue10/26/17 at 0900 Given 11/09/2017 8:36 AM CDT 50,000 Units Given 11/02/2017 7:19 AM CDT 50,000 Units Given 10/26/2017 8:02 AM CDT 50,000 Units glucagon injection 1 mg 1 mg, intramuscular, Every 30 min PRN, low blood sugar, blood glucose less than 70 mg/dL, Starting on Tue10/24/17 at 2058, If patient has no IV access and not alert, given Glucagon IM then follow with either oral glucose or IV dextrose treatment., Indications: HypoglycemiaIndications:Hypoglycemia ipratropium-albuterol (DUO-NEB) 0.5-2.5 mg/3 mL nebulizer solution 3 mL 3 mL, nebulization, 4 times daily (correspondent), First dose on Tue10/25/17 at 1100, Indications: Chronic Obstructive Pulmonary Disease with BronchospasmsIndications:Chronic Obstructive Pulmonary Disease with Bronchospasms Given 10/29/2017 6:35 AM CDT 3 mL Given by Other 10/28/2017 7:41 PM CDT 3 mL Given 10/28/2017 9:12 AM CDT 3 mL ipratropium-albuterol (DUO-NEB) 0.5-2.5 mg/3 mL nebulizer solution 3 mL 3 mL, nebulization, Every 4 hours PRN (correspondent), wheezing, shortness of breath, Starting on Tue10/29/17 at 1000, Indications: Chronic Obstructive Pulmonary Disease with BronchospasmsIndications: Chronic Obstructive Pulmonary Disease with Bronchospasms lidocaine (LIDODERM) 5 % patch 1 patch 1 patch, transdermal, Administer over 12 Hours, Daily, First dose on 10/29/17 at 0900, Do not cover the holes on the top side of the patch., Apply to affected area: back, Indications: Postherpetic NeuralgiaIndications:Post herpetic Neuralgia Medication Applied 2017 8:41 AM CDT 1 patch Other (Comment) Medication Applied 11/09/2017 8:41 AM CDT 1 patch Other (Comment) Medication Applied 11/08/2017 8:57 AM CDT 1 patch Other (Comment) metFORMIN (GLUCOPHAGE) tablet 500 mg 500 mg, oral, 2 times daily with meals (bkfst, dinner), First dose on Tue10/25/17 at 0800, Take with food Given 10/25/2017 5:08 PM CDT 500 mg Given 10/25/2017 7:51 AM CDT 500 mg metoprolol (LOPRESSOR) tablet 12.5 mg 12.5 mg, oral, 2 times daily, First dose on Tue10/24/17 at 2115 Given 2017 8:43 AM CDT 12.5 mg Given 11/09/2017 7:47 PM CDT 12.5 mg Given 11/09/2017 8:37 AM CDT 12.5 mg miconazole 2 % powder topical, 2 times daily, First dose on Tue10/25/17 at 0900, Apply to affected area: other Given 2017 8:41 AM CDT Given 11/09/2017 11:03 PM CDT Given 11/09/2017 8:42 AM CDT ondansetron (ZOFRAN) tablet 4 mg 4 mg, oral, Every 4 hours PRN, nausea, vomiting, Starting on Tue10/24/17 at 2011 Given 11/06/2017 4:45 PM CDT 4 mg Given 11/03/2017 10:10 AM CDT 4 mg Given 11/02/2017 11:26 AM CDT 4 mg oxyCODONE (ROXICODONE) tablet 10 mg 10 mg, oral, Every 4 hours PRN, prn pain scale 7-10, Starting on Tue10/24/17 at 2012, Do not crush or chew, Indications: PainIndications:Pain Given 2017 12:42 PM CDT 10 mg Given 2017 8:42 AM CDT 10 mg Given 2017 3:55 AM CDT 10 mg oxyCODONE (ROXICODONE) tablet 5 mg 5 mg, oral, Every 4 hours PRN, 1st line for pain, Starting on Tue10/24/17 at 2011, Indications: PainIndications:Pain Given 11/01/2017 1:13 PM CDT 5 mg Given 10/31/2017 3:16 PM CDT [address] (PROTONIX) extended release tablet 40 mg 40 mg, oral, Daily, First dose on Tue10/25/17 at 0900, Do not crush or chew, Indications: GI prophylaxisIndications:GI prophylaxis Given 2017 8:42 AM CDT 40 mg Given 11/09/2017 8:36 AM CDT 40 mg Given 11/08/2017 8:53 AM CDT 40 mg polyethylene glycol (MIRALAX) packet 17 g 17 g, oral, 2 times daily PRN, constipation, Starting on Tue10/29/17 at 0736 Given 11/09/2017 8:36 AM CDT 17 g Given 11/05/2017 9:22 PM CDT 17 g Given 11/03/2017 8:05 AM CDT 17 g senna (SENOKOT) tablet 1 tablet 1 tablet, oral, Daily, First dose on Tue10/25/17 at 0900 Given 2017 8:42 AM CDT 1 tablet Given 11/09/2017 8:36 AM CDT 1 tablet Given 11/08/2017 8:53 AM CDT 1 tablet sulfamethoxazole-trimethoprim (BACTRIM,SEPTRA) 800-160 mg per tablet 1 tablet 1 tablet, oral, 2 times daily, First dose on Tue10/24/17 at 2115, Indications: Pneumonia, Hospital AcquiredIndications:Pneumonia, Hospital Acquired Given 10/27/2017 9:56 PM CDT 1 tablet Given 10/27/2017 7:52 AM CDT 1 tablet Given 10/26/2017 10:25 PM CDT 1 tablet tamsulosin (FLOMAX) extended release capsule 0.4 mg 0.4 mg, oral, Nightly, First dose on Tue10/24/17 at 2115, Do not crush or chew Given 11/09/2017 7:47 PM CDT 0.4 mg Given 11/08/2017 9:36 PM CDT 0.4 mg Given 11/07/2017 9:47 PM CDT 0.4 mg zinc sulfate (ZINCATE) capsule 220 mg 220 mg, oral, Daily, First dose on Tue10/25/17 at 1115 Given 2017 8:42 AM CDT 220 mg Given 11/09/2017 8:36 AM CDT 220 mg Given 11/08/2017 8:53 AM CDT 220 mg zolpidem (AMBIEN) tablet 5 mg 5 mg, oral, Nightly PRN, sleep, Starting on Tue10/24/17 at 2016, Indications: Sleep-Onset InsomniaIndications:Sleep-Onset Insomnia Given 11/08/2017 9:36 PM CDT 5 m g Given 11/07/2017 9:47 PM CDT 5 mg Given 11/06/2017 10:32 PM CDT 5 mg documented in this encounter Discontinued Medications Medication Sig Discontinue Reason Start Date End Da te lisinopril-hydroCHLORO thiazide (PRINZIDE,ZESTORETIC) 10-12.5 mg per tabletIndications:hype rtension Take 1 tablet by mouth daily. Therapy completed 02/09/2017 10/24/2017 cetirizine (ZyrTEC) 10 mg tablet TAKE 1 TABLET BY MOUTH TWICE A DAY Therapy completed 12/09/2016 10/24/2017 atorvastatin (LIPITOR) 20 mg tablet take 1 tablet by oral route every day Therapy completed 11/13/2015 10/24/2017 albuterol HFA (PROVENTIL HFA,VENTOLIN HFA) 90 mcg/actuation inhaler Inhale 2 puffs every 6 (six) hours as needed for wheezing. Therapy completed 10/24/2017 amLODIPine (NORVASC) 5 mg tablet take 1 tablet (5MG) by oral route every day Therapy completed 03/30/2012 10/24/2017 rivaroxaban (XARELTO) tablet take 1 tablet (20MG) by oral route every day with the evening meal Therapy completed 11/16/2012 10/24/2017 mesalamine (LIALDA) 1.2 gram EC tablet take 3 Tablet by oral route every day with a meal Therapy completed 03/30/2012 10/24/2017 aspirin (ASPIRIN LOW DOSE) 81 mg tablet take 1 Tablet (81MG) by oral route every day Stop Taking at Discharge 03/30/[address] (VOLTAREN) 75 mg EC tablet take 2 Tablet (150MG) by oral route every day Stop Taking at Discharge 03/30/2012 2017 furosemide (LASIX) 20 mg tablet take 1 tablet by oral route every day Stop Taking at Discharge 01/18/2013 2017 potassium chloride ER (potassium chloride ER) 10 mEq CR tablet TAKE ONE TABLET BY MOUTH ONCE DAILY WITH FOOD Stop Taking at Discharge 04/26/[address] (PROTONIX) 40 mg EC tablet take 1 tablet by oral route every day Stop Taking at Discharge 11/13/2015 2017 budesonide-formoterol (SYMBICORT) 80-4.5 mcg/actuation inhaler Inhale 1 puff 2 (two) times a day. Stop Taking at Discharge 2017 doxepin (SINEquan) 25 mg capsule TAKE 1 CAPSULE TWICE A DAY Stop Taking at Discharge 01/20/2017 2017 ferrous fumarate 325 mg (106 mg iron) tablet Take 2 tablets by mouth daily. Stop Taking at Discharge 2017 metFORMIN (GLUCOPHAGE) 500 mg tablet Take 500 mg by mouth 2 (two) times a day with meals. Stop Taking at Discharge 2017 albuterol (PROVENTIL,VENTOLIN) 2.5 mg/0.5 mL solution for nebulization Take 5 mg by nebulization every 6 (six) hours as needed. Stop Taking at Discharge 2017 amiodarone (PACERONE) 200 mg tablet Take 200 mg by mouth 2 (two) times a day. Stop Taking at Discharge 2017 apixaban (ELIQUIS) 5 mg tablet Take 5 mg by mouth 2 (two) times a day. Stop Taking at Discharge 2017 aspirin 81 mg chewable tablet Take 81 mg by mouth daily. Stop Taking at Discharge 2017 atorvastatin (LIPITOR) 20 mg tablet Take 20 mg by mouth daily. Stop Taking at Discharge 2017 bisacodyl (DULCOLAX) 10 mg suppository Insert 10 mg into the rectum every third day. Stop Taking at Discharge 2017 bumetanide (BUMEX) 0.5 mg tablet Take 0.25 mg by mouth daily. Stop Taking at Discharge 2017 chlorhexidine (PERIDEX) 0.12 % solution Apply 5 mL to the mouth or throat 2 (two) times a day. Stop Taking at Discharge 2017 diphenhydrAMINE (BENADRYL) 25 mg capsule Take 25 mg by mouth 3 (three) times a day as needed for itching. Stop Taking at Discharge 2017 docusate (COLACE) liquid 50 mg/5 mLIndications:constipa tion Take 100 mg by mouth daily. Stop Taking at Discharge 2017 famotidine (PEPCID) 20 mg tablet Take 20 mg by mouth 2 (two) times a day. Stop Taking at Discharge 2017 insulin lispro (HumaLOG) 100 unit/mL injection Inject 0-10 Units under the skin 4 (four) times a day (with meals and nightly). Low dose sliding scale Stop Taking at Discharge 2017 LORazepam (ATIVAN) 2 mg/mL injection Infuse 1 mg into a venous catheter every 6 (six) hours as needed for anxiety. Stop Taking at Discharge 2017 metoprolol (LOPRESSOR) 25 mg tablet Take 12.5 mg by mouth 2 (two) times a day. Stop Taking at Discharge 2017 ondansetron (ZOFRAN) 4 mg tablet Take 4 mg by mouth every 4 (four) hours as needed for nausea or vomiting. Stop Taking at Discharge 2017 oxyCODONE (ROXICODONE) 5 mg immediate release tabletIndications:Pain Take 5 mg by mouth every 4 (four) hours as needed. Stop Taking at Discharge 2017 oxyCODONE (ROXICODONE) 5 mg immediate release tabletIndications:Pain Take 10 mg by mouth every 4 (four) hours as needed (prn pain scale 7-10). Stop Taking at Discharge 2017 polyethylene glycol (MIRALAX) 17 gram packet Take 17 g by mouth daily as needed. Stop Taking at Discharge 2017 senna (SENOKOT) 8.6 mg tablet Take 1 tablet by mouth daily. Stop Taking at Discharge 2017 sulfamethoxazole-trime thoprim (BACTRIM,SEPTRA) 800-160 mg per tablet Take 1 tablet by mouth 2 (two) times a day. Stop Taking at Discharge 2017 tamsulosin (FLOMAX) 0.4 mg extended release capsule Take 0.4 mg by mouth nightly. Stop Taking at Discharge 2017 zolpidem (AMBIEN) 5 mg tabletIndications:Slee p-Onset Insomnia Take 5 mg by mouth nightly as needed for sleep. Stop Taking at Discharge 2017 documented as of this encounter Historical Medications * This list may reflect changes made after this encounter. acetaminophen (TYLENOL) 325 mg tablet Take 2 tablets (650 mg total) by mouth every 4 (four) hours as needed for pain zolpidem (AMBIEN) 5 mg tabletIndications :Sleep-Onset Insomnia Take 5 mg by mouth nightly as needed for sleep. 8 tamsulosin (FLOMAX) 0.4 mg extended release capsule Take 0.4 mg by mouth nightly. 8 sulfamethoxazole- trimethoprim (BACTRIM,SEPTRA) 800-160 mg per tablet Take 1 tablet by mouth 2 (two) times a day. 8 senna (SENOKOT) 8.6 mg tablet Take 1 tablet by mouth daily. 8 polyethylene glycol (MIRALAX) 17 gram packet Take 17 g by mouth daily as needed. 8 oxyCODONE (ROXICODONE) 5 mg immediate release tabletIndications :Pain Take 10 mg by mouth every 4 (four) hours as needed (prn pain scale 7-10). 8 oxyCODONE (ROXICODONE) 5 mg immediate release tabletIndications :Pain Take 5 mg by mouth every 4 (four) hours as needed. 8 ondansetron (ZOFRAN) 4 mg tablet Take 4 mg by mouth every 4 (four) hours as needed for nausea or vomiting. 8 metoprolol (LOPRESSOR) 25 mg tablet Take 12.5 mg by mouth 2 (two) times a day. 8 LORazepam (ATIVAN) 2 mg/mL injection Infuse 1 mg into a venous catheter every 6 (six) hours as needed for anxiety. 8 insulin lispro (HumaLOG) 100 unit/mL injection Inject 0-10 Units under the skin 4 (four) times a day (with meals and nightly). Low dose sliding scale 8 famotidine (PEPCID) 20 mg tablet Take 20 mg by mouth 2 (two) times a day. 8 docusate (COLACE) liquid 50 mg/5 mLIndications:con stipation Take 100 mg by mouth daily. 8 diphenhydrAMINE (BENADRYL) 25 mg capsule Take 25 mg by mouth 3 (three) times a day as needed for itching. 8 chlorhexidine (PERIDEX) 0.12 % solution Apply 5 mL to the mouth or throat 2 (two) times a day. 8 bumetanide (BUMEX) 0.5 mg tablet Take 0.25 mg by mouth daily. 8 bisacodyl (DULCOLAX) 10 mg suppository Insert 10 mg into the rectum every third day. 8 atorvastatin (LIPITOR) 20 mg tablet Take 20 mg by mouth daily. 8 aspirin 81 mg chewable tablet Take 81 mg by mouth daily. 8 apixaban (ELIQUIS) 5 mg tablet Take 5 mg by mouth 2 (two) times a day. 8 amiodarone (PACERONE) 200 mg tablet Take 200 mg by mouth 2 (two) times a day. 8 albuterol (PROVENTIL,VENTOL IN) 2.5 mg/0.5 mL solution for nebulization Take 5 mg by nebulization every 6 (six) hours as needed. 8 added in this encounter Active and Recently Administered Medications Times are shown in CDT. Scheduled Medication Order 11/08/2017 11/09/2017 2017 amiodarone (PACERONE) tablet 200 mg 200 mg, oral, 2 times daily, First dose on Tue10/24/17 at 2115 0853 (Given - Provider: Neena Jackson RN)2135 (Given - Provider: Amanda Burnette RN) 0836 (Given - Provider: Neena Jackson RN)194 (Given - Provider: Yesenia Chadwick RN) 0842 (Given - Provider: Eunice Cruz RN) apixaban (ELIQUIS) tablet 5 mg 5 mg, oral, 2 times daily, First dose on Tue10/24/17 at 2115, May crush and suspend in 60 ml of water, D5W, apple juice or apple sauce. If on heparin infusion, discontinue heparin infusion upon first administration of apixaban., Indications: atrial fibrillation, VTE Prophylaxis 0853 (Given - Provider: Neena Jackson RN)2135 (Given - Provider: Amanda Burnette RN) 0836 (Given - Provider: Neena Jackson RN)194 (Given - Provider: Yesenia Chadwick, DONTAE - Comment: patient request) 0842 (Given - Provider: Eunice Cruz RN) ascorbic acid (VITAMIN C) tablet/chewable tablet 500 mg 500 mg, oral, 2 times daily, First dose on Tue10/25/17 at 1115 0853 (Given - Provider: Neena Jackson RN)2136 (Given - Provider: Amanda Burnette RN) 0837 (Given - Provider: Neena Jackson RN)194 (Given - Provider: Yesenia Chadwick, DONTAE) 0842 (Given - Provider: Eunice Cruz RN) aspirin enteric coated tablet 81 mg 81 mg, oral, Daily, First dose on Tue10/25/17 at 0900, Do not crush or chew 0853 (Given - Provider: Neena Jackson RN) 0836 (Given - Provider: Neena Jackson RN) 0844 (Given - Provider: Eunice Cruz RN) atorvastatin (LIPITOR) tablet 20 mg 20 mg, oral, Daily, First dose on Tue10/25/17 at 0900 0853 (Given - Provider: Neena Jackson RN) 0836 (Given - Provider: Neena Jackson RN) 0842 (Given - Provider: Eunice Cruz, DONTAE) bacitracin 500 unit/gram ointment packet 1 application 1 application (deactivated), topical, Daily, First dose on Tue11/05/17 at 1530, Apply to bilateral third toes(distal) and left great toe wounds and cover with bandaid x 1 week or until healed., Apply to affected area: foot, Laterality: Bilateral 0857 (Given - Provider: Neena Jackson RN) 0841 (Given - Provider: Neena Jackson RN) 0844 (Given - Provider: Eunice Cruz RN) baclofen (LIORESAL) tablet 10 mg 10 mg, oral, 3 times daily with meals, First dose (after last modification) on Tue11/07/17 at 1200 0854 (Given - Provider: Neena Jackson, DONTAE)1306 (Given - Provider: Neena Jackson RN)1745 (Given - Provider: Neena Jackson RN) 0836 (Given - Provider: Neena Jackson RN)1249 (Given - Provider: Neena Jackson, DONTAE)1725 (Given - Provider: Neena Jackson RN) 0842 (Given - Provider: Eunice Cruz, DONTAE)1156 (Given - Provider: Eunice Cruz RN) budesonide-formoterol (SYMBICORT) 80-4.5 mcg/actuation inhaler 1 puff 1 puff, inhalation, 2 times daily (correspondent), First dose (after last modification) on Tue10/24/17 at 2145, Rinse mouth with water after use to reduce aftertaste and incidence of candidiasis. Do not swallow. 0708 (Given - Provider: Germaine Fountain, PHOTOGRAPHIC RESTORER)1925 (Given - Provider: Loretta Quezada PHOTOGRAPHIC RESTORER) 0824 (Given - Provider: Toshia King, PHOTOGRAPHIC RESTORER)2024 (Given - Provider: Kaycee Fortune, VISHNU) 0927 (Given - Provider: Toshia King RRT) bumetanide (BUMEX) tablet 0.5 mg 0.5 mg, oral, Daily, First dose (after last modification) on Tue10/29/17 at 0900 0853 (Given - Provider: Neena Jackson RN) 0836 (Given - Provider: Neena Jackson RN) 0842 (Given - Provider: Eunice Cruz RN) chlorhexidine (PERIDEX) 0.12 % solution 5 mL 5 mL, mouth/throat, 2 times daily, First dose on Tue10/24/17 at 2115 0854 (Given - Provider: Neena Jackson RN)2138 (Given - Provider: Amanda Burnette RN) 0841 (Not Given - Provider: Neena Jackson RN - Reason: Patient/family refused)2300 (Given - Provider: Yesenia Chadwick RN - Comment: patient request) 0841 (Given - Provider: Eunice Cruz RN) collagenase 250 unit/gram ointment topical, Daily, First dose on Tue10/25/17 at 1730, Use with wet to dry dressing change to left mid back wound., Apply to affected area: wound 0854 (Given - Provider: Neena Jackson RN) 0842 (Given - Provider: Neena Jackson RN) 0846 (Given - Provider: Eunice Cruz RN) docusate sodium (COLACE) capsule 100 mg 100 mg, oral, 2 times daily, First dose on Tue10/29/17 at 0900, Indications: constipation 0853 (Given - Provider: Neena Jackson RN)2135 (Given - Provider: Amanda Burnette RN) 0836 (Given - Provider: Neena Jackson RN)1945 (Given - Provider: Yesenia Chadwick RN) 0842 (Given - Provider: Eunice Cruz RN) ergocalciferol (VITAMIN D) capsule 50,000 Units 50,000 Units, oral, Weekly, First dose on Tue10/26/17 at 0900 0836 (Given - Provider: Neena Jackson RN) lidocaine (LIDODERM) 5 % patch 1 patch 1 patch, transdermal, Administer over 12 Hours, Daily, First dose on Tue10/29/17 at 0900, Do not cover the holes on the top side of the patch., Apply to affected area: back, Indications: Postherpetic Neuralgia 0857 (Medication Applied - Provider: Neena Jackson RN - Comment: back)2136 (Medication Removed - Provider: Amanda Burnette RN) 0841 (Medication Applied - Provider: Neena Jackson RN - Comment: back)1954 (Medication Removed - Provider: Yesenia Chadwick RN) 0841 (Medication Applied - Provider: Eunice Cruz RN - Comment: lower back)1432 (Due: Medication Removed - Provider: Automatic Discharge Provider - Comment: Time automatically adjusted from order being discontinued) metoprolol (LOPRESSOR) tablet 12.5 mg 12.5 mg, oral, 2 times daily, First dose on Tue10/24/17 at 2115 0853 (Given - Provider: Neena Jackson RN)2136 (Given - Provider: Amanda Burnette RN) 0837 (Given - Provider: Neena Jackson RN)1946 (Given - Provider: Yesenia Chadwick, DONTAE) 0843 (Given - Provider: Eunice Cruz RN) miconazole 2 % powder topical, 2 times daily, First dose on Tue10/25/17 at 0900, Apply to affected area: other 0857 (Given - Provider: Neena Jackson RN)2137 (Given - Provider: Amanda Burnette RN) 0842 (Given - Provider: Neena Jackson RN)230 (Given - Provider: Yesenia Chadwick RN - Comment: patient request) 0841 (Given - Provider: Eunice Cruz RN) pantoprazole DR (PROTONIX) extended release tablet 40 mg 40 mg, oral, Daily, First dose on Tue10/25/17 at 0900, Do not crush or chew, Indications: GI prophylaxis 0853 (Given - Provider: Neena Jackson RN) 0836 (Given - Provider: Neena Jackson RN) 0842 (Given - Provider: Eunice Cruz RN) senna (SENOKOT) tablet 1 tablet 1 tablet, oral, Daily, First dose on Tue10/25/17 at 0900 0853 (Given - Provider: Neena Jackson RN) 0836 (Given - Provider: Neena Jackson RN) 0842 (Given - Provider: Eunice Cruz RN) tamsulosin (FLOMAX) extended release capsule 0.4 mg 0.4 mg, oral, Nightly, First dose on Tue10/24/17 at 2115, Do not crush or chew 2135 (Given - Provider: Amanda Burnette RN) 1946 (Given - Provider: Yesenia Chadwick RN) zinc sulfate (ZINCATE) capsule 220 mg 220 mg, oral, Daily, First dose on Tue10/25/17 at 1115 0853 (Given - Provider: Neena Jackson, DONTAE) 0836 (Given - Provider: Neena Jackson, DONTAE) 0842 (Given - Provider: Eunice Cruz, RN) PRN Medication Order 11/08/2017 11/09/2017 2017 acetaminophen (TYLENOL) tablet 650 mg 650 mg, oral, Every 4 hours PRN, 1st line for pain, Starting on Tue10/24/17 at 2004 1747 (Given - Provider: Neena Jackson, DONTAE) 1424 (Given - Provider: Neena Jackson, DONTAE) 1122 (Given - Provider: Eunice Cruz, DONTAE) albuterol (PROVENTIL,VENTOLIN) 2.5 mg/0.5 mL nebulizer solution 5 mg 5 mg, nebulization, Every 6 hours PRN, shortness of breath, Starting on Tue10/24/17 at 2004 bisacodyl (DULCOLAX) suppository 10 mg 10 mg, rectal, Daily PRN, constipation, Starting on 10/29/17 at 0737 bisacodyl EC (DULCOLAX EC) tablet 5 mg 5 mg, oral, 2 times daily PRN, constipation, Starting on Tue10/29/17 at 0737, Do not crush or chew camphor-menthol (SARNA) 0.5-0.5 % lotion topical, As needed, itching, Starting on Tue11/07/17 at 0859, Apply to affected area: other 0324 (Given - Provider: Amanda Burnette RN) dextrose (GLUTOSE) 40 % gel 15 g 15 g, oral, Every 15 min PRN, low blood sugar, blood glucose less than 70 mg/dL, Starting on Tue10/24/17 at 2057, If patient is alert and able to eat/drink, give 15 gram glucose or one juice (4 fluid ounces) NOT ORANGE J[employer] STATES GLUTOSE-15 CONTAINS GLUCOSE 40% W/W (50% W/V) dextrose 50% (concentrated solution) CONCENTRATED solution 25 g 25 g, intravenous, Every 15 min PRN, low blood sugar, blood glucose less than 70 mg/dL, Starting on Tue10/24/17 at 2057, If patient is NPO or unresponsive, give dextrose 50% IV Push over 2 minutes., Indications: Hypoglycemia diphenhydrAMINE (BENADRYL) tab/cap 25 mg 25 mg, oral, 4 times daily PRN, itching, Starting on Tue11/04/17 at 0828 1923 (Given - Provider: Amanda Burnette, RN) 1424 (Given - Provider: Neena Jackson, DONTAE)1947 (Given - Provider: Yesenia Chadwick, DONTAE) 0842 (Given - Provider: Eunice Cruz, DONTAE) glucagon injection 1 mg 1 mg, intramuscular, Every 30 min PRN, low blood sugar, blood glucose less than 70 mg/dL, Starting on Tue10/24/17 at 2057, If patient has no IV access and not alert, given Glucagon IM then follow with either oral glucose or IV dextrose treatment., Indications: Hypoglycemia ipratropium-albuterol (DUO-NEB) 0.5-2.5 mg/3 mL nebulizer solution 3 mL 3 mL, nebulization, Every 4 hours PRN (correspondent), wheezing, shortness of breath, Starting on 10/29/17 at 1000, Indications: Chronic Obstructive Pulmonary Disease with Bronchospasms ondansetron (ZOFRAN) tablet 4 mg 4 mg, oral, Every 4 hours PRN, nausea, vomiting, Starting on Tue10/24/17 at 2011 oxyCODONE (ROXICODONE) tablet 10 mg 10 mg, oral, Every 4 hours PRN, prn pain scale 7-10, Starting on Tue10/24/17 at 2012, Do not crush or chew, Indications: Pain 0856 (Given - Provider: Neena Jackson RN)1305 (Given - Provider: Neena Jackson, DONTAE) 0324 (Given - Provider: Amanda Burnette RN)0836 (Given - Provider: Neena Jackson RN)1231 (Given - Provider: Leslye Santoyo RN) 0355 (Given - Provider: Yesenia Chadwick, DONTAE)0842 (Given - Provider: Eunice Cruz, DONTAE)1242 (Given - Provider: Eunice Cruz RN) oxyCODONE (ROXICODONE) tablet 5 mg 5 mg, oral, Every 4 hours PRN, 1st line for pain, Starting on 10/24/17 at 2011, Indications: Pain polyethylene glycol (MIRALAX) packet 17 g 17 g, oral, 2 times daily PRN, constipation, Starting on 10/29/17 at 0736 0836 (Given - Provider: Neena Jackson, DONTAE) zolpidem (AMBIEN) tablet 5 mg 5 mg, oral, Nightly PRN, sleep, Starting on 10/24/17 at 2015, Indications: Sleep-Onset Insomnia 2135 (Given - Provider: Amanda Burnette RN) documented in this encounter Orders Medications Ordered That Alonzo ht Not Have Been Administered Count Last Ordered Date First Ordered Date insulin lispro (HumaLOG) inj ection 1-3 Units 2 10/29/2017 10/24/2017 ipratropium-albuterol (DUO-N EB) 0.5-2.5 mg/3 mL nebulizer solution 3 mL 1 10/29/2017 albuterol (PROVENTIL,VENTOLI N) 2.5 mg/0.5 mL nebulizer solution 5 mg 1 10/24/2017 bisacodyl (DULCOLAX) suppository 10 mg 1 budesonide-formoterol (SYMBI RUBY) 80-4.5 mcg/actuation inhaler 1 puff 1 10/24/2017 dextrose (GLUTOSE) 40 % gel 15 g 1 10/25/19 18 dextrose 50% (concentrated s olution) CONCENTRATED solution 25 g 1 10/24/2017 glucagon injection 1 mg 1 10/24/2017 insulin lispro (HumaLOG) inj ection 0-10 Units 1 10/24/2017 insulin lispro (HumaLOG) inj ection 1-2 Units 1 10/24/2017 polyethylene glycol (MIRALAX) packet 17 g 1 10/24/2017 Lab Orders Without Results Count Last Ordered D ate First Ordered Date POCT GLUCOSE DEVICE 18 10/29/2017 10/25/19 18 General Supply Count Last Ordered Date First Or dered Date AQUA K PAD EQUIPMENT 1 11/02/2017 ISOLATION CART 1 10/28/2017 Diet Count Last Ordered Date First Orde red Date ADULT DISCHARGE DIET 3 2017 018 Nursing Count Last Ordered Date First Orde red Date DISCHARGE DRESSING 2 11/09/2017 DISCHARGE INSTRUCTIONS 2 11/09/2017 WEIGH PATIENT 1 10/24/2017 Consult Count Last Ordered Date First Orde red Date IP CONSULT TO GASTROENTEROLOGY 1 11/08/2017 IP CONSULT TO PODIATRY 1 11/04/2017 IP CONSULT TO INTERNAL MEDICINE 1 8 IP CONSULT TO NUTRITION SERVICES 1 10/25/19 18 IP CONSULT TO SOCIAL WORK 1 10/24/2017 Isolation Count Last Ordered Date First Orde red Date INITIATE CONTACT ISOLATION 1 10/24/2017 Admission Count Last Ordered Date First Orde red Date ASSIGN PATIENT STATUS 1 10/24/2017 Discharge Count Last Ordered Date First Orde red Date DISCHARGE PATIENT 1 11/09/2017 CORE MEASURES Count Last Ordered Date First Ord ered Date REASON FOR NO VTE PROPHYLAXIS AT ADMISSION 1 10/24/2017 documented in this encounter Additional Health Concerns Infection Onset Date Last Indicated Resolved Time Respiratory Infection (LESLIE), contact Comment:Sputum positive for Stenotrophomonas maltophilia. Tested positive on 09/20, 09/23, 10/13. 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
--- OUTSIDE RECORDS SUMMARY | 2024-05-24 23:24 | XMS_ITS | Encounter Summary ---
Author Organization [facility] Healthcare Address [address] [place] [address] Care Team Providers Care Admin Prog Coord Name Role Phone Briana Medeiros MD Primary Care Provider [phone] Encounter Details Date Type Department Care Team (Latest Contact Info) Description 09/19/2017 3:11 PM CDT - 10/24/2017 6:10 PM CDT Hospital Encounter 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 60 tablet 8 02/22/20 18 aspirin (ASPIRIN LOW DOSE) 81 mg tablet take 1 Tablet (81MG) by oral route every day 0 2 11/11/19 18 atorvastatin (LIPITOR) 20 mg tablet Take 1 tablet (20 mg total) by mouth daily. 30 tablet 8 06/26/19 20 budesonide-formote rol (SYMBICORT) 80-4.5 mcg/actuation inhaler Inhale 1 puff 2 (two) times a day. 11/11/19 18 budesonide-formote rol (SYMBICORT) 80-4.5 mcg/actuation inhalerIndications :Bronchospasm [...] mcg lozenge Take by mouth. 03/27/[address] (VOLTAREN) 75 mg EC tablet take 2 Tablet (150MG) by oral route every day 0 2 11/11/19 18 docusate (COLACE) liquid 50 mg/5 mLIndications:cons tipation Take 100 mg by mouth. 8 06/26/19 20 doxepin (SINEquan) 25 mg capsule TAKE 1 CAPSULE TWICE A DAY 7 11/11/19 18 ferrous fumarate 325 mg (106 mg iron) tablet Take 2 tablets by mouth daily. 11/11/19 18 furosemide (LASIX) 20 mg tablet take 1 tablet by oral route every day 0 0 3 11/11/19 18 ipratropium-albute rol (DUO-NEB) 0.5-2.5 mg/3 mL nebulizer [...] by MD. 15 patch 8 12/20/19 19 metFORMIN (GLUCOPHAGE) 500 mg tablet Take 500 mg by mouth 2 (two) times a day with meals. 11/11/19 18 METOPROLOL TARTRATE CAPSULE 6.25 MG Take 2 capsules (12.5 mg total) by mouth 2 (two) times a day. 120 capsule 8 02/22/20 18 oxyCODONE (ROXICODONE) 5 mg immediate release tabletIndications: Pain Take 1 tablet (5 mg total) by mouth every 4 (four) hours as needed for pain. 30 tablet 8 12/20/[address] (PROTONIX) 40 mg EC tablet take 1 tablet by oral route every day 0 0 6 11/11/[address] (PROTONIX) 40 mg EC tabletIndications: Stress Ulcer Prophylaxis,GI prophylaxis Take 1 tablet (40 mg total) by mouth daily. 30 tablet 8 03/13/20 18 polyethylene glycol (MIRALAX) 17 gram packet Take 17 g by mouth 2 (two) times a day as needed (constipation). 15 packet 8 03/27/20 24 potassium chloride ER (potassium chloride ER) 10 mEq CR tablet TAKE ONE TABLET BY MOUTH ONCE DAILY WITH FOOD 30 0 2 11/11/19 18 zolpidem (AMBIEN) 5 mg tabletIndications: Sleep-Onset Insomnia Take 1 tablet (5 mg total) by mouth nightly as needed for sleep. 30 tablet 8 02/22/20 18 documented as of this encounter Discharge Disposition Disposition Code Departure Means Destination Discharge to an Rehab facility documented in this encounter Miscellaneous Notes * Pre-Admission Screening - Katya Oliver RN - 10/24/2017 2:30 PM CDT [facility] Physical Medicine and Rehabilitation Preadmission Screening Reason for Consult: Mason Jang is a 66 y.o. male with a medical diagnosis of Respiratory Failure and whose probable impairment code for inpatient rehabilitation is: Debility The following information was gathered for consideration and maintenance in the medical record to substantiate medical necessity for IRF level of care. Patient is currently at [facility] . The patient is being referred and recommended by Dr Espino to be assessed both medically and functionally in regard to their premorbid functional capacity to determine whether they can benefit from arehabilitation level of care offered by our facility. The following information is regarding the medical complexity and clinical risk factors that need to be considered for the appropriate management of the patient's care and recovery. RECOMMENDATIONS / PLAN: Goals for admission:Return home at [facility] Likelihood of reaching these goals:Medical and Functional Prognosis: Good Therapies required to achieve goals:The patient will benefit from integrated coordination of care from the following interdisciplinary services: Medical Supervision, 24 hours Rehabilitation Nursing, Physical Therapy, Occupational Therapy, Case Management, Respiratory Therapy, Speech Therapy, SocialWork, Music Therapy Frequency and duration of therapies expect [...] Expected intensity and frequency of Speech Therapy (SUPERVISOR COMPOSING ROOM): 1 hour per day per day over 5-6 days per week Expected level of improvement is: very good Expected level of improvement at discharge is: modified independent Strengths for achieving goals: Strengths: Able to tolerate intensive inpatient rehab program, Good family/social support, Good premorbid functional status, Good premorbid medical status, Living in the community premorbidly, Motivated Barriers to achieving goals: Barriers: Comorbidities Expected length of stay: Estimated Length of Stay: 14 days When medically stable, anticipated disposition: Anticipated destination post discharge from inpatient rehab: community discharge with assist,Anticipated needed services post discharge from inpatient rehab: outpatient Information regarding the rehab process including risks/benefits and financial issues were discussed with the patient and/or family and they have agreed to accept rehabilitation risks and benefits. Payor Source: Primary: Medicare [id number] Secondary:[employer] [facility], Policy number: [id number] Case discussed with Dr Burt and Laura Shore [facility] on 10/24/17. Appropriateness for admission to the Inpatient Rehab Facility: yes The Pre-admission screen is an assessment of the patient's medical and functional status and has been reviewed by a rehab physician. It has been determined by the rehab physician that this patient will benefit from a comprehensive inpatient rehab admission to meet the identified goals and manage ongoing medical issues. The physician will provide documentation that supports an inpatient rehab admission including real and potential complications for which the patient is at risk with a plan to manage and avoid those risks HISTORY: Past Medical History: Past Medical History: Diagnosis Date ??? Chronic obstructive pulmonary disease (CMS/HCC) COPD ??? Coronary artery disease ??? Diabetes mellitus (CMS/HCC) ??? HX OTHER MEDICAL DJD ??? Hypertension Past Surgical History: Past Surgical History: Procedure Laterality Date ??? BACK SURGERY ??? TOTAL HIP ARTHROPLASTY Bilateral ??? TRACHEOSTOMY Social History: Social History Social History ??? Marital status: Spouse name: N/A ??? Number of children: N/A ??? Years of education: N/A Social History Main Topics ??? Smoking status: Former Smoker ??? Smokeless tobacco: Never Used ??? Alcohol use No ??? Drug use: No ??? Sexual activity: Defer Other Topics Concern ??? Not on file Social History Narrative ??? No narrative on file Acute Medical Conditions: HPI: Pt is a 66 yr old male with a PMH of COPD, A Fib,on long-term oral anticoagulation;hypertension, diabetes who presented to [facility] with respiratory failure. He orginally presented to an outside hospital on 07/29/17 for an L1 debridement associate d with an abscess. His subsequent medical course was complicated my MRSA empyema requiring chest tube placement with prolonged antibiotics, trachestomy for delayed weaning, PEG placement and mucus plugging. He has been doing very well at [facility]. He is participating in limited therapy. He [...] towards independent level of functioning. Date of Onset: Date Admitted to Acute: Risks/Complications: Malnutrition, Impaired skin integrity, Anxiety, Depression, COPD, Sepsis, Recent trach, Post op infection [place] Suicide Severity Rating Scale: Allergies: Allergies Allergen Reactions ??? Penicillins Code Status: No Order Vitals: There were no vitals filed for this visit. Current Systems Summary: Height: Weight: Diet: Bladder: Bowel: Date of last BM: Integumentary: Cardiopulmonary: Dialysis: Pain: IVs: Current meds: No current facility-administered medications on file prior to encounter. Current Outpatient Prescriptions on File Prior to Encounter Medication Sig Dispense Refill ??? albuterol HFA (PROVENTIL HFA,VENTOLIN HFA) 90 mcg/actuation inhaler Inhale 2 puffs every 6 (six) hours as needed for wheezing. ??? amLODIPine (NORVASC) 5 mg tablet take 1 tablet (5MG) by oral route every day 0 ??? aspirin (ASPIRIN LOW DOSE) 81 mg tablet take 1 Tablet (81MG) by oral route every day 0 ??? atorvastatin (LIPITOR) 20 mg tablet take 1 tablet by oral route every day 0 0 ??? budesonide-formoterol (SYMBICORT) 80-4.5 mcg/actuation inhaler Inhale. ??? cetirizine (ZyrTEC) 10 mg tablet TAKE 1 TABLET BY MOUTH TWICE A DAY ??? cyanocobalamin, vitamin B-12, 500 mcg lozenge Take by mouth. ??? diclofenac DR (VOLTAREN) 75 mg EC tablet take 2 Tablet (150MG) by oral route every day (Patientnot taking: Reported on 02/22/2017 ) 0 ??? doxepin (SINEquan) 25 mg capsule TAKE 1 CAPSULE TWICE A DAY ??? ferrous fumarate 325 mg (106 mg iron) tablet Take 2 tablets by mouth daily. ??? furosemide (LASIX) 20 mg tablet take 1 tablet by oral route every day (Patient not taking: Reported on 02/22/2017 ) 0 0 ??? lisinopril-hydroCHLOROthiazide (PRINZIDE,ZESTORETIC) 10-12.5 mg per tablet Take 1 tablet by mouth daily. ??? mesalamine (LIALDA) 1.2 gram EC tablet take 3 Tablet by oral route every day with a meal (Patient not taking: Reported on 02/22/2017 ) 0 ??? metFORMIN (GLUCOPHAGE) 500 mg tablet Take 500 mg by mouth 2 (two) times a day with meals. ??? pantoprazole DR (PROTONIX) 40 mg EC tablet take 1 tablet by oral route every day 0 0 ??? potassium chloride ER (potassium chloride ER) 10 mEq CR tablet TAKE ONE TABLET BY MOUTH ONCE DAILY WITH FOOD (Patient not taking: Reported on 02/22/2017 ) 30 0 ??? rivaroxaban (XARELTO) tablet take 1 tablet (20MG) by oral route every day with the evening meal0 Substance abuse history: Mason Jang reports that he has quit smoking. He has never used smokeless tobacco. He reports that he does not drink alcohol or use drugs. Diagnotic Tests: Admission on 09/19/2017 No results displayed because visit has over 200 results. Prior Functional Status: Mobility status/Ambulation aid/assistive devices: [...] Vocational Status: Retired for age Home Setting: [facility] level home [facility] Lives With: Spouse;Adult children Exterior Home Access: No steps Interior Home Access: Steps;Rail on right ascending Stairs needed to access: Bedroom Current functional status: ADL: Grooming: Set up, Independent UE Dressing: LE Dressing: Bathing: Toileting: Mobility/Transfers: Bed Mobility: Transfers: Transfer From 1: Sit Transfer Type 1: To and from Transfer to 1: Wheelchair Transfer Level of Assistance 1: Maximum assistance Wheelchair: Ambulation, including distance and device: Distance (ft) 1: able to partially stand for 10-15 sec Risk for clinical complications: Comorbid conditions that will impact course of rehabilitation: Comorbid Conditions in addition to those listed above Patient/Caregiver Goals: Patient and Family Goals: To return home at [facility] Cosigned by Rachna Burt MD at 10/24/2017 3:23 PM CDT Associated attestation - Rachna Burt MD - 10/24/2017 3:23 PM CDT Rehab Referral Decision: Approved I have reviewed this patient Pre-admission Screening Information.The patient is medically stable toparticipate in an inpatient rehabilitation program. In my rehabilitation experience and professional judgement, this patient meets medical necessity criteria and requires an inpatient rehabilitation stay to manage current nursing and medical issues. The patient requires supervision by a rehabilitation physician at least three times a week. The patient requires the Interdisciplinary team approach of an inpatient rehabilitation program. This patient can reasonably expect to participate and benefit from the intensive Inpatient rehabilitation program offered at [facility] . documented in this encounter Plan of Treatment Not on file documented as of this encounter Procedures Procedure Name Priority Date/Time Associated Diagnosis Comments EGFR STAT 10/24/2017 11:00 AM CDT DIFFERENTIAL AUTO STAT 10/24/2017 11: 00 AM CDT CBC WITH AUTO DIFFERENTIAL STAT 10/24/2017 11:00 AM CDT COMPREHENSIVE METABOLIC PANEL STAT 10/24/2017 11:00 AM CDT DISCHARGE LABORATORY CUMULATIVE REPORT 10/24/2017 12:00 AM CDT XR CHEST 1 VIEW IP Routine 10/22/2017 10:37 AM CDT BLOOD GAS, ARTERIAL Routine 10/20/2017 4 :30 AM CDT XR CHEST 1 VIEW IP Routine 10/19/2017 10:35 AM CDT BLOOD GAS, ARTERIAL Routine 10/19/2017 5 :05 AM CDT EGFR Routine 10/17/2017 3:58 AM CDT DIFFERENTIAL AUTO Routine 10/17/2017 3:5 8 AM CDT CBC WITH AUTO DIFFERENTIAL Routine 10/17/2017 3:58 AM CDT RENAL FUNCTION PANEL Routine 10/17/2017 3:58 AM CDT BLOOD GAS, ARTERIAL STAT 10/16/2017 8 :15 AM CDT XR CHEST 1 VIEW IP Routine 10/16/2017 8:14 AM CDT EGFR Routine 10/15/2017 4:59 AM CDT RENAL FUNCTION PANEL Routine 10/15/2017 4:59 AM CDT AEROBIC CULTURE AND GRAM STAIN Routine 10/13/2017 5:15 PM CDT XR CHEST 1 VIEW IP Routine 10/13/2017 7:47 AM CDT PRO B-TYPE NATRIURETIC PEPTIDE Routine 10/12/2017 1:15 PM CDT PROCALCITONIN Routine 10/12/2017 12:35 PM CDT EGFR Routine 10/12/2017 5:18 AM CDT DIFFERENTIAL AUTO Routine 10/12/2017 5:1 8 AM CDT CBC WITH AUTO DIFFERENTIAL Routine 10/12/2017 5:18 AM CDT RENAL FUNCTION PANEL Routine 10/12/2017 5:18 AM CDT DIFFERENTIAL AUTO STAT 10/11/2017 3:4 0 PM CDT CBC WITH AUTO DIFFERENTIAL STAT 10/11/2017 3:40 PM CDT APTT Routine 10/11/2017 3:40 PM CDT PROTIME-INR Routine 10/11/2017 3:40 PM CDT XR CHEST 1 VIEW IP Routine 10/11/2017 10:36 AM CDT Respiratory failure (CMS/HCC) PREPARE RBC STAT 10/09/2017 2:58 PM CDT TYPE AND SCREEN Routine 10/09/2017 11:20 AM CDT EGFR Routine 10/09/2017 6:45 AM CDT DIFFERENTIAL AUTO Routine 10/09/2017 6:4 5 AM CDT CBC WITH AUTO DIFFERENTIAL Routine 10/09/2017 6:45 AM CDT PHOSPHORUS Routine 10/09/2017 6:45 AM CDT COMPREHENSIVE METABOLIC PANEL Routine 10/09/2017 6:45 AM CDT BLOOD GAS, ARTERIAL Routine 10/08/2017 8 :30 PM CDT EGFR Routine 10/08/2017 2:00 PM CDT DIFFERENTIAL AUTO Routine 10/08/2017 2:0 0 PM CDT CBC WITH AUTO DIFFERENTIAL Routine 10/08/2017 2:00 PM CDT COMPREHENSIVE METABOLIC PANEL Routine 10/08/2017 2:00 PM CDT XR CHEST 1 VIEW IP Routine 10/08/2017 10:02 AM CDT BLOOD GAS, ARTERIAL Routine 10/05/2017 9 :40 AM CDT EGFR Routine 10/05/2017 4:55 AM CDT DIFFERENTIAL AUTO Routine 10/05/2017 4:5 5 AM CDT CBC WITH AUTO DIFFERENTIAL Routine 10/05/2017 4:55 AM CDT RENAL FUNCTION PANEL Routine 10/05/2017 4:55 AM CDT EGFR Routine 10/02/2017 5:48 AM CDT DIFFERENTIAL AUTO Routine 10/02/2017 5:4 8 AM CDT CBC WITH AUTO DIFFERENTIAL Routine 10/02/2017 5:48 AM CDT BASIC METABOLIC PANEL Routine 10/02/2017 5:48 AM CDT BLOOD GAS, ARTERIAL Routine 09/28/2017 1 :30 PM CDT XR CHEST 1 VIEW IP Routine 09/28/2017 8:55 AM CDT HEMOGLOBIN A1C Routine 09/27/2017 9:27 PM CDT EGFR Routine 09/27/2017 4:20 AM CDT DIFFERENTIAL AUTO Routine 09/27/2017 4:2 0 AM CDT CBC WITH AUTO DIFFERENTIAL Routine 09/27/2017 4:20 AM CDT RENAL FUNCTION PANEL Routine 09/27/2017 4:20 AM CDT XR CHEST 1 VIEW IP Routine 09/26/2017 9:04 AM CDT PROCALCITONIN Routine 09/25/2017 9:15 AM CDT TRANSTHORACIC ECHO (TTE) COMPLETE W DOPPLER/CF WO CONTRAST Routine 09/24/2017 12:34 PM CDT XR CHEST 1 VIEW IP Routine 09/24/2017 11:10 AM CDT BLOOD GAS, ARTERIAL STAT 09/24/2017 5 :30 AM CDT AEROBIC CULTURE AND GRAM STAIN Routine 09/23/2017 7:57 AM CDT XR CHEST 1 VIEW IP Routine 09/22/2017 8:33 AM CDT AEROBIC CULTURE AND GRAM STAIN Routine 09/20/2017 3:00 PM CDT LACTATE, WHOLE BLOOD Routine 09/20/2017 12:15 PM CDT BLOOD GAS, ARTERIAL Routine 09/19/2017 8 :20 PM CDT EGFR Routine 09/19/2017 6:15 PM CDT DIFFERENTIAL AUTO Routine 09/19/2017 6:1 5 PM CDT CBC WITH AUTO DIFFERENTIAL Routine 09/19/2017 6:15 PM CDT LACTATE, WHOLE BLOOD Routine 09/19/2017 6:15 PM CDT COMPREHENSIVE METABOLIC PANEL Routine 09/19/2017 6:15 PM CDT XR CHEST 1 VIEW IP Routine 09/19/2017 5:20 PM CDT XR ABDOMEN AP 1 VIEW IP Routine 09/19/2017 5:20 PM CDT documented in this encounter Results * eGFR (10/24/2017 11:00 AM CDT) eGFR 90 mL/min/1.7 3 m2 [facility] Comment: Interpretive Data Reference Interval Normal ?>/= 90 mL/min/1.73m2 Mildly decreased* ? 60 - 89 mL/min/1.73m2 Mildly to moderately decreased ?45 - 59 mL/min/1.73m2 Moderately to severely decreased ??30 - 44 mL/min/1.73m2 Severely decreased ?15 - 29 mL/min/1.73m2 Kidney Failure ?< 15 ??mL/min/1.73m2 *Relative to young adult level If -[place] multiply value by 1.16. Estimated glomerular filtration [...] was last reviewed 2016. Blood specimen (specimen) 10/24/2017 11:00 AM CDT 10/24/2017 11:34 AM CDT Narrative [facility] - 10/24/2017 12:00 PM CDT us Amy Espino Jr., MD LAB BLOOD ORDERABLES Fi nal Result [facility] [address] Department [place] [address] * (ABNORMAL) Comprehensive metabolic panel (10/24/2017 11:00 AM CDT) Sodium 137 135 - 145 mmol/L [facility] Potassium, pl 4.6 3.3 - 4.9 mmol/L [facility] CO2 32 22 - 32 mmol/L [facility] BUN 25 8 - 25 mg/dL [facility] Glucose 105 70 - 199 mg/dL [facility] Comment: Interpretive Data Fasting glucose >/= 126 [...] interpretive data was last revised 2017. Creatinine 0.83 0.80 - 1.30 mg/dL [facility] Calcium 9.1 8.5 - 10.3 mg/dL [facility] Chloride 95(L) 97 - 110 mmol/L [facility] Albumin 3.3(L) 3.5 - 5.0 g/dL [facility] AST 39 10 - 50 Units/L [facility] ALT 84(H) 7 - 55 Units/L [facility] Alk phos 136(H) 40 - 130 Units/L [facility] Bilirubin, total 0.5 0.1 - 1.2 mg/dL [facility] Protein, pl 5.7(L) 6.5 - 8.5 g/dL [facility] Anion gap 10 2 - 15 mmol/L [facility] Blood specimen (specimen) 10/24/2017 11:00 AM CDT 10/24/2017 11:33 AM CDT Narrative [facility] - 10/24/2017 12:00 PM CDT us Amy Espino Jr., MD LAB BLOOD ORDERABLES Fi nal Result [facility] [address] Department [place] [address] * (ABNORMAL) Differential, auto (10/24/2017 11:00 AM CDT) Neutrophil abs 10.5(H) 1.7 - 6.5 K/cumm [facility] Imm gran abs 0.1 0.0 - 0.1 K/cumm [facility] Lymphocyte abs 0.5(L) 0.8 - 3.3 K/cumm [facility] Monocyte abs 1.0(H) 0.2 - 0.8 K/cumm [facility] Eosinophil abs 0.0 0.0 - 0.5 K/cumm [facility] Basophil abs 0.0 0.0 - 0.1 K/cumm [facility] Neutrophil pct 86.2 % [facility] Comment: Interpretive Data Percent cell count reference ranges are not reported, since discordance with absolute values may lead to misinterpretation of CBC data. Current Interpretive Data was last revised on 2017. Imm gran pct 1.2 % [facility] Comment: Interpretive Data Percent cell count reference ranges are not reported, since discordance with absolute values may lead to misinterpretation of CBC data. Current Interpretive Data was last revised on 2017. Lymphocyte pct 4.3 % [facility] Comment: Interpretive Data Percent cell count reference ranges are not reported, since discordance with absolute values may lead to misinterpretation of CBC data. Current Interpretive Data was last revised on 2017. Monocyte pct 8.0 % [facility] Comment: Interpretive Data Percent cell count reference ranges are not reported, since discordance with absolute values may lead to misinterpretation of CBC data. Current Interpretive Data was last revised on 2017. Eosinophil pct 0.2 % [facility] Comment: Interpretive Data Percent cell count reference ranges are not reported, since discordance with absolute values may lead to misinterpretation of CBC data. Current Interpretive Data was last revised on 2017. Basophil pct 0.1 % [facility] Comment: Interpretive Data Percent cell count reference ranges are not reported, since discordance with absolute values may lead to misinterpretation of CBC data. Current Interpretive Data was last revised on 2017. Blood specimen (specimen) 10/24/2017 11:00 AM CDT 10/24/2017 11:33 AM CDT Narrative [facility] - 10/24/2017 11:41 AM CDT Amy Espino Jr., MD LAB BLOOD ORDERABLES Fi nal Result [facility] [address] Department [place] [address] * (ABNORMAL) CBC with auto differential (10/24/2017 11:00 AM CDT) WBC 12.1(H) 3.8 - 9.9 K/cumm [facility] RBC 3.26(L) 4.30 - 5.80 M/cumm [facility] Hgb 9.4(L) 13.0 - 17.5 g/dL [facility] Hct 31.2(L) 38.9 - 50.3 % [facility] MCV 95.7 81.3 - 96.4 fL [facility] MCH 28.8 27.1 - 33.3 pg [facility] MCHC 30.1(L) 32.3 - 35.7 g/dL [facility] RDW CV 18.0(H) 11.1 - 14.9 % [facility] RDW SD 63.1(H) 35.7 - 48.1 fL [facility] Plt 199 150 - 400 K/cumm [facility] MPV 11.9 9.1 - 12.3 fL [facility] NRBC abs 0.00 0.00 - 0.01 K/cumm [facility] Blood specimen (specimen) 10/24/2017 11:00 AM CDT 10/24/2017 11:33 AM CDT Narrative [facility] - 10/24/2017 11:41 AM CDT us Amy Espino Jr., MD LAB BLOOD ORDERABLES Fi nal Result [facility] [address] Department [place] [address] * DISCHARGE LABORATORY CUMULATIVE REPORT (10/24/2017 12:00 AM CDT) Narrative 10/24/2017 12:00 AM CDT Ordered by an unspecified provider. us Historical Provider LAB BLOOD ORDERABLES Yajaira l Result * XR Chest 1 Vw (10/22/2017 10:37 AM CDT) Anatomical Region Laterality Modality Body, Chest N/A Computed Radiogr aphy Impressions 10/22/2017 10:57 AM CDT 1. ??Worsening left basilar pleural-parenchymal opacities likely combination of pleural fluid and airspace disease. 2. ??Persistent interstitial edema. Electronically signed by: FAISAL RANGEL MD Narrative 10/22/2017 10:57 AM CDT CHEST ONE VIEW HISTORY: SHORTNESS OF BREATH PRODUCED BY EXERTION OR STRESS. COMPARISON: 10/19/2017 FINDINGS: Increasing left pleural effusion and left mid and lower lung zone opacities. ??Diffuse interstitial edema persists. ??Cardiac silhouette remains enlarged. ??There is no pneumothorax. ??Gastrostomy tube overlies the upper abdomen. ??Regional skeleton is unchanged. Procedure Note Faisal Rangel MD - 10/22/2017 CHEST ONE VIEW HISTORY: SHORTNESS OF BREATH PRODUCED BY EXERTION OR STRESS. COMPARISON: 10/19/2017 FINDINGS: Increasing left pleural effusion and left mid and lower lung zone opacities. Diffuse interstitial edema persists. Cardiac silhouette remains enlarged. There is no pneumothorax. Gastrostomy tube overlies the upper abdomen. Regional skeleton is unchanged. IMPRESSION: 1. Worsening left basilar pleural-parenchymal opacities likely combination of pleural fluid and airspace disease. 2. Persistent interstitial edema. Electronically signed by: FAISAL RANGEL MD us Amy Espino Jr., MD IMG XR PROCEDURES Final Result * (ABNORMAL) Blood gas, arterial (10/20/2017 4:30 AM CDT) pH, Art 7.39 7.35 - 7.45 [facility] PCO2, Arterial 61(H) 35 - 45 mmHg [facility] PO2, Arterial 73(L) 83 - 108 mmHg [facility] BE, art 10 mmol/L [facility] Comment: Interpretive Data No Reference Range Established Current Interpretive Data was last revised on 2017 O2 Sat Art (Calculated) 94 94 - 98 % [facility] HCO3 Art (Calculated) 37(H) 20 - 30 mmol/L [facility] Blood specimen (specimen) 10/20/2017 4:30 AM CDT 10/20/2017 5:07 AM CDT Narrative [facility] - 10/20/2017 5:10 AM CDT us Amy Espino Jr., MD LAB BLOOD ORDERABLES Fi nal Result [facility] [address] Department [place] [address] * XR Chest 1 Vw (10/19/2017 10:35 AM CDT) Anatomical Region Laterality Modality Body, Chest N/A Computed Radiogr aphy Impressions 10/19/2017 11:04 AM CDT 1. Interval improvement of infiltrates with residual coarse markings in the perihilar regions. COMMENT: Please see above for additional findings. Electronically signed by: Dewey Colón M.D. Narrative 10/19/2017 11:04 AM CDT Chest Radiograph HISTORY: Follow-up on unresolved pneumonia COMPARISON: 10/16/2017 A chest radiographic examination including 1 views in the frontal projection was presented. FINDINGS: The tracheostomy tube overlies the tracheal air column. The cardiac silhouette is within normal size limits. The costophrenic angles are preserved bilaterally. The lung herrera are relatively small. ??The remaining course of markings in the perihilar regions. ??There however appears to be interval improvement in the ill-defined infiltrates in the left perihilar and basilar region as well as the right base and right upper lung field. Procedure Note Dewey Colón MD - 10/19/2017 Chest Radiograph HISTORY: Follow-up on unresolved pneumonia COMPARISON: 10/16/2017 A chest radiographic examination including 1 views in the frontal projection was presented. FINDINGS: The tracheostomy tube overlies the tracheal air column. The cardiac silhouette is within normal size limits. The costophrenic angles are preserved bilaterally. The lung herrera are relatively small. The remaining course of markings in the perihilar regions. There however appears to be interval improvement in the ill-defined infiltrates in the left perihilar and basilar region as well as the right base and right upper lung field. IMPRESSION: 1. Interval improvement of infiltrates with residual coarse markings in the perihilar regions. COMMENT: Please see above for additional findings. Electronically signed by: Dewey Colón M.D. Amy Espino Jr., MD IMG XR PROCEDURES Final Result * (ABNORMAL) Blood gas, arterial (10/19/2017 5:05 AM CDT) pH, Art 7.37 7.35 - 7.45 [facility] PCO2, Arterial 67(H) 35 - 45 mmHg [facility] PO2, Arterial 97 83 - 108 mmHg [facility] BE, art 11 mmol/L [facility] Comment: Interpretive Data No Reference Range Established Current Interpretive Data was last revised on 2017 O2 Sat Art (Calculated) 97 94 - 98 % [facility] HCO3 Art (Calculated) 39(H) 20 - 30 mmol/L [facility] Blood specimen (specimen) 10/19/2017 5:05 AM CDT 10/19/2017 5:30 AM CDT Narrative [facility] - 10/19/2017 5:38 AM CDT us Amy Espino Jr., MD LAB BLOOD ORDERABLES Fi nal Result Performing Organization Address [facility] Co de Phone Number [facility] [address] Department [place] [address] * eGFR (10/17/2017 3:58 AM CDT) eGFR 96 mL/min/1.7 3 m2 [facility] Comment: Interpretive Data Reference Interval Normal ?>/= 90 mL/min/1.73m2 Mildly decreased* ? 60 - 89 mL/min/1.73m2 Mildly to moderately decreased ?45 - 59 mL/min/1.73m2 Moderately to severely decreased ??30 - 44 mL/min/1.73m2 Severely decreased ?15 - 29 mL/min/1.73m2 Kidney Failure ?< 15 ??mL/min/1.73m2 *Relative to young adult level If -[place] multiply value by 1.16. Estimated glomerular filtration [...] was last reviewed 2016. Blood specimen (specimen) 10/17/2017 3:58 AM CDT 10/17/2017 4:10 AM CDT N[facility]ative [facility] - 10/17/2017 4:37 AM CDT us Amy Espino Jr., MD LAB BLOOD ORDERABLES Fi nal Result Performing Organization Address [facility] Co de Phone Number [facility] [address] Department [place] [address] * (ABNORMAL) Renal function panel (10/17/2017 3:58 AM CDT) Sodium 138 135 - 145 mmol/L [facility] Potassium, pl 5.1(H) 3.3 - 4.9 mmol/L [facility] Chloride 95(L) 97 - 110 mmol/L [facility] CO2 36(H) 22 - 32 mmol/L [facility] Anion gap 7 2 - 15 mmol/L [facility] Glucose 125 70 - 199 mg/dL [facility] Comment: Interpretive Data Fasting glucose >/= 126 [...] Current interpretive data was last revised 2017. BUN 38(H) 8 - 25 mg/dL [facility] Creatinine 0.71(L) 0.80 - 1.30 mg/dL [facility] Calcium 8.8 8.5 - 10.3 mg/dL [facility] Phosphorus, pl 2.9 2.3 - 4.5 mg/dL [facility] Albumin 3.1(L) 3.5 - 5.0 g/dL [facility] Blood specimen (specimen) 10/17/2017 3:58 AM CDT 10/17/2017 3:59 AM CDT Narrative [facility] - 10/17/2017 4:37 AM CDT Amy Espino Jr., MD LAB BLOOD ORDERABLES Fi nal Result [facility] [address] Department [place] [address] * (ABNORMAL) Differential, auto (10/17/2017 3:58 AM CDT) Neutrophil abs 8.4(H) 1.7 - 6.5 K/cumm [facility] Imm gran abs 0.1 0.0 - 0.1 K/cumm [facility] Lymphocyte abs 0.2(L) 0.8 - 3.3 K/cumm [facility] Monocyte abs 0.3 0.2 - 0.8 K/cumm [facility] Eosinophil abs 0.0 0.0 - 0.5 K/cumm [facility] Basophil abs 0.0 0.0 - 0.1 K/cumm [facility] Neutrophil pct 92.6 % [facility] Comment: Interpretive Data Percent cell count reference ranges are not reported, since discordance with absolute values may lead to misinterpretation of CBC data. Current Interpretive Data was last revised on 2017. Imm gran pct 1.0 % [facility] Comment: Interpretive Data Percent cell count reference ranges are not reported, since discordance with absolute values may lead to misinterpretation of CBC data. Current Interpretive Data was last revised on 2017. Lymphocyte pct 2.8 % [facility] Comment: Interpretive Data Percent cell count reference ranges are not reported, since discordance with absolute values may lead to misinterpretation of CBC data. Current Interpretive Data was last revised on 2017. Monocyte pct 3.5 % [facility] Comment: Interpretive Data Percent cell count reference ranges are not reported, since discordance with absolute values may lead to misinterpretation of CBC data. Current Interpretive Data was last revised on 2017. Eosinophil pct 0.0 % [facility] Comment: Interpretive Data Percent cell count reference ranges are not reported, since discordance with absolute values may lead to misinterpretation of CBC data. Current Interpretive Data was last revised on 2017. Basophil pct 0.1 % [facility] Comment: Interpretive Data Percent cell count reference ranges are not reported, since discordance with absolute values may lead to misinterpretation of CBC data. Current Interpretive Data was last revised on 2017. Blood specimen (specimen) 10/17/2017 3:58 AM CDT 10/17/2017 3:58 AM CDT Narrative [facility] - 10/17/2017 4:16 AM CDT Amy Espino Jr., MD LAB BLOOD ORDERABLES Fi nal Result Performing Organization Address [facility]/ZIP Co de Phone Number [facility] [address] [place] [address] * (ABNORMAL) CBC with auto differential (10/17/2017 3:58 AM CDT) [facility] WBC 9.0 3.8 - 9.9 K/cumm [facility] RBC 3.02(L) 4.30 - 5.80 M/cumm [facility] Hgb 8.7(L) 13.0 - 17.5 g/dL [facility] Hct 30.0(L) 38.9 - 50.3 % [facility] MCV 99.3(H) 81.3 - 96.4 fL [facility] MCH 28.8 27.1 - 33.3 pg [facility] MCHC 29.0(L) 32.3 - 35.7 g/dL [facility] RDW CV 17.9(H) 11.1 - 14.9 % [facility] RDW SD 65.2(H) 35.7 - 48.1 fL [facility] Plt 233 150 - 400 K/cumm [facility] MPV 12.0 9.1 - 12.3 fL [facility] NRBC abs 0.00 0.00 - 0.01 K/cumm [facility] Blood specimen (specimen) 10/17/2017 3:58 AM CDT 10/17/2017 3:58 AM CDT Narrative [facility] - 10/17/2017 4:16 AM CDT Amy Espino Jr., MD LAB BLOOD ORDERABLES Fi nal Result Performing Organization Address [facility]/ZIP Co de Phone Number [facility] [address] [place] [address] * (ABNORMAL) Blood gas, arterial (10/16/2017 8:15 AM CDT) pH, Art 7.47(H) 7.35 - 7.45 [facility] PCO2, Arterial 48(H) 35 - 45 mmHg [facility] PO2, Arterial 58(L) 83 - 108 mmHg [facility] BE, art 10 mmol/L [facility] Comment: Interpretive Data No Reference Range Established Current Interpretive Data was last revised on 2017 O2 Sat Art (Calculated) 92(L) 94 - 98 % [facility] HCO3 Art (Calculated) 35(H) 20 - 30 mmol/L [facility] Blood specimen (specimen) 10/16/2017 8:15 AM CDT 10/16/2017 8:31 AM CDT Narrative [facility] - 10/16/2017 8:34 AM CDT Amy Espino Jr., MD LAB BLOOD ORDERABLES Fi nal Result [facility] [address] Department [place] [address] * XR Chest 1 Vw (10/16/2017 8:14 AM CDT) Anatomical Region Laterality Modality Body, Chest N/A Computed Radiogr aphy Impressions 10/16/2017 8:30 AM CDT Stable abnormal portable chest radiograph. Electronically signed by: Feliciano Kraus M.D. Narrative 10/16/2017 8:30 AM CDT Portable chest radiograph CLINICAL HISTORY: Pneumonia. ??Follow-up. COMPARISON: Portable chest radiograph dated 10/13/2017. FINDINGS: Tracheostomy tube remains in midline position. The cardiomediastinal silhouette is stable. There are stable bilateral infiltrates with a bibasilar predominance. There are probable small bilateral pleural effusions. ??There is no evidence of pneumothorax. Procedure Note Feliciano Kraus MD - 10/16/2017 Portable chest radiograph CLINICAL HISTORY: Pneumonia. Follow-up. COMPARISON: Portable chest radiograph dated 10/13/2017. FINDINGS: Tracheostomy tube remains in midline position. The cardiomediastinal silhouette is stable. There are stable bilateral infiltrates with a bibasilar predominance. There are probable small bilateral pleural effusions. There is no evidence of pneumothorax. IMPRESSION: Stable abnormal portable chest radiograph. Electronically signed by: Feliciano Kraus M.D. Amy Espino Jr., MD IMG XR PROCEDURES Final Result * eGFR (10/15/2017 4:59 AM CDT) eGFR 100 mL/min/1.7 3 m2 [facility] Comment: Interpretive Data Reference Interval Normal ?>/= 90 mL/min/1.73m2 Mildly decreased* ? 60 - 89 mL/min/1.73m2 Mildly to moderately decreased ?45 - 59 mL/min/1.73m2 Moderately to severely decreased ??30 - 44 mL/min/1.73m2 Severely decreased ?15 - 29 mL/min/1.73m2 Kidney Failure ?< 15 ??mL/min/1.73m2 *Relative to young adult level If -[place] multiply value by 1.16. Estimated glomerular filtration [...] was last reviewed 2016. Blood specimen (specimen) 10/15/2017 4:59 AM CDT 10/15/2017 4:59 AM CDT Narrative [facility] - 10/15/2017 5:31 AM CDT Amy Espino Jr., MD LAB BLOOD ORDERABLES Fi nal Result [facility] [address] Department [place] [address] * (ABNORMAL) Renal function panel (10/15/2017 4:59 AM CDT) Sodium 139 135 - 145 mmol/L [facility] Potassium, pl 5.3(H) 3.3 - 4.9 mmol/L [facility] Chloride 97 97 - 110 mmol/L [facility] CO2 35(H) 22 - 32 mmol/L [facility] Anion gap 7 2 - 15 mmol/L [facility] Glucose 156 70 - 199 mg/dL [facility] Comment: Interpretive Data Fasting glucose >/= 126 [...] Current interpretive data was last revised 2017. BUN 36(H) 8 - 25 mg/dL [facility] Creatinine 0.65(L) 0.80 - 1.30 mg/dL [facility] Calcium 9.1 8.5 - 10.3 mg/dL [facility] Phosphorus, pl 2.1(L) 2.3 - 4.5 mg/dL [facility] Albumin 3.1(L) 3.5 - 5.0 g/dL [facility] Blood specimen (specimen) 10/15/2017 4:59 AM CDT 10/15/2017 4:59 AM CDT Narrative [facility] - 10/15/2017 5:31 AM CDT Amy Espino Jr., MD LAB BLOOD ORDERABLES Fi nal Result Performing Organization Address [facility]/ZIP Co de Phone Number [facility] [address] Department [place] [address] * (ABNORMAL) Aerobic culture and gram stain (10/13/2017 5:15 PM CDT) Direct Specimen Exam Stain: <10 Epithelial cells/lf, <25 WBC's/lf , Moderate Gram Negative Bacilli , Few Gram Positive Cocci [facility] Report Final Report: Moderate growth of: Stenotrophomonas maltophilia This is a multi-drug resistant organism. Inpatients require contact isolation. Multi-drug resistant organism result called to and read back by Era Small on 10/15/2017 12:26:50 by TPT Moderate Growth Normal robert (.) [facility] Organism STENOTROPHOMONAS MALTOPHILIA [facility] Sputum (Sputum) 10/13/2017 5 :15 PM CDT 10/13/2017 5:38 PM CDT Narrative [facility] - 10/16/2017 12:26 PM CDT Organism Antibiotic Method Susceptibility Stenotrophomonas maltophilia Levofloxacin (UMESH) INTERPRETATION Susceptible Stenotrophomonas maltophilia Trimethoprim with Sulfamethoxazole (UMESH) INTERPRETATION Susceptible Amy Espino Jr., MD LAB MICROBIOLOGY - GENE RAL ORDERABLES Final Result Performing Organization Address [facility] Co de Phone Number [facility] [address] Department [place] [address] * XR Chest 1 Vw (10/13/2017 7:47 AM CDT) Anatomical Region Laterality Modality Body, Chest N/A Computed Radiogr aphy Impressions 10/13/2017 7:57 AM CDT 1. ??Bilateral infiltrates left greater than right. ??Right-sided infiltrates have improved. Electronically signed by: Jeanmarie Fu M.D. Narrative 10/13/2017 7:57 AM CDT Portable chest. HISTORY: Shortness breath. Findings this tracheostomy tube in place. ??Heart is mildly enlarged. There are bilateral infiltrates with slight improvement on the right side. ??Minimal volume loss left hemithorax. ??No pneumothorax. Procedure Note Jeanmarie Fu MD - 10/13/2017 Portable chest. HISTORY: Shortness breath. Findings this tracheostomy tube in place. Heart is mildly enlarged. There are bilateral infiltrates with slight improvement on the right side. Minimal volume loss left hemithorax. No pneumothorax. IMPRESSION: 1. Bilateral infiltrates left greater than right. Right-sided infiltrates have improved. Electronically signed by: Jeanmarie Fu M.D. Amy Espino Jr., MD IMG XR PROCEDURES Final Result * (ABNORMAL) Pro B-type natriuretic peptide (10/12/2017 1:15 PM CDT) NT-proBNP 3,033(H) 0 - 125 pg/mL [facility] Comment:On August 31, 2016 BN P was replaced with NT-proBNP. If you have any questions, please contact the Laboratory at [phone]. Blood specimen (specimen) 10/12/2017 1:15 PM CDT 10/12/2017 12:49 PM CDT Narrative [facility] - 10/12/2017 1:56 PM CDT Amy Espino Jr., MD LAB BLOOD ORDERABLES Fi nal Result [facility] [address] Department [place] [address] * Procalcitonin (10/12/2017 12:35 PM CDT) Procalcitonin 0.11 0.02 - 0.80 ng/mL [facility] Blood specimen (specimen) 10/12/2017 12:35 PM CDT 10/12/2017 12:48 PM CDT Narrative [facility] - 10/12/2017 1:39 PM CDT us Amy Espino Jr., MD LAB BLOOD ORDERABLES Fi nal Result Performing Organization Address [facility] Co de Phone Number [facility] [address] [employer] [place] [address] * eGFR (10/12/2017 5:18 AM CDT) [facility] eGFR 101 mL/min/1.7 3 m2 [facility] Comment: Interpretive Data Reference Interval Normal ?>/= 90 mL/min/1.73m2 Mildly decreased* ? 60 - 89 mL/min/1.73m2 Mildly to moderately decreased ?45 - 59 mL/min/1.73m2 Moderately to severely decreased ??30 - 44 mL/min/1.73m2 Severely decreased ?15 - 29 mL/min/1.73m2 Kidney Failure ?< 15 ??mL/min/1.73m2 *Relative to young adult level If -[place] multiply value by 1.16. Estimated glomerular filtration [...] was last reviewed 2016. Blood specimen (specimen) 10/12/2017 5:18 AM CDT 10/12/2017 5:35 AM CDT Narrative [facility] - 10/12/2017 6:04 AM CDT us Amy Espino Jr., MD LAB BLOOD ORDERABLES Fi nal Result Performing Organization Address [facility] Co de Phone Number [facility] [address] Department [place] [address] * (ABNORMAL) Renal function panel (10/12/2017 5:18 AM CDT) Sodium 137 135 - 145 mmol/L [facility] Potassium, pl 4.2 3.3 - 4.9 mmol/L [facility] Chloride 94(L) 97 - 110 mmol/L [facility] CO2 32 22 - 32 mmol/L [facility] Anion gap 11 2 - 15 mmol/L [facility] Glucose 103 70 - 199 mg/dL [facility] Comment: Interpretive Data Fasting glucose >/= 126 [...] Current interpretive data was last revised 2017. BUN 20 8 - 25 mg/dL [facility] Creatinine 0.63(L) 0.80 - 1.30 mg/dL [facility] Calcium 8.8 8.5 - 10.3 mg/dL [facility] Phosphorus, pl 3.2 2.3 - 4.5 mg/dL [facility] Albumin 3.0(L) 3.5 - 5.0 g/dL [facility] Blood specimen (specimen) 10/12/2017 5:18 AM CDT 10/12/2017 5:25 AM CDT Narrative [facility] - 10/12/2017 6:04 AM CDT Amy Espino Jr., MD LAB BLOOD ORDERABLES Fi nal Result [facility] [address] Department [place] [address] * (ABNORMAL) Differential, auto (10/12/2017 5:18 AM CDT) Neutrophil abs 6.3 1.7 - 6.5 K/cumm [facility] Imm gran abs 0.0 0.0 - 0.1 K/cumm [facility] Lymphocyte abs 0.6(L) 0.8 - 3.3 K/cumm [facility] Monocyte abs 0.8 0.2 - 0.8 K/cumm [facility] Eosinophil abs 0.4 0.0 - 0.5 K/cumm [facility] Basophil abs 0.0 0.0 - 0.1 K/cumm [facility] Neutrophil pct 77.2 % [facility] Comment: Interpretive Data Percent cell count reference ranges are not reported, since discordance with absolute values may lead to misinterpretation of CBC data. Current Interpretive Data was last revised on 2017. Imm gran pct 0.4 % [facility] Comment: Interpretive Data Percent cell count reference ranges are not reported, since discordance with absolute values may lead to misinterpretation of CBC data. Current Interpretive Data was last revised on 2017. Lymphocyte pct 7.3 % [facility] Comment: Interpretive Data Percent cell count reference ranges are not reported, since discordance with absolute values may lead to misinterpretation of CBC data. Current Interpretive Data was last revised on 2017. Monocyte pct 9.5 % [facility] Comment: Interpretive Data Percent cell count reference ranges are not reported, since discordance with absolute values may lead to misinterpretation of CBC data. Current Interpretive Data was last revised on 2017. Eosinophil pct 5.2 % [facility] Comment: Interpretive Data Percent cell count reference ranges are not reported, since discordance with absolute values may lead to misinterpretation of CBC data. Current Interpretive Data was last revised on 2017. Basophil pct 0.4 % [facility] Comment: Interpretive Data Percent cell count reference ranges are not reported, since discordance with absolute values may lead to misinterpretation of CBC data. Current Interpretive Data was last revised on 2017. Blood specimen (specimen) 10/12/2017 5:18 AM CDT 10/12/2017 5:24 AM CDT Narrative [facility] - 10/12/2017 5:43 AM CDT us Amy Espino Jr., MD LAB BLOOD ORDERABLES Fi nal Result Performing Organization Address [facility] Co de Phone Number [facility] [address] [place] [place] [address] * (ABNORMAL) CBC with auto differential (10/12/2017 5:18 AM CDT) [facility] [facility] WBC 8.1 3.8 - 9.9 K/cumm [facility] RBC 3.02(L) 4.30 - 5.80 M/cumm [facility] Hgb 8.7(L) 13.0 - 17.5 g/dL [facility] Hct 28.4(L) 38.9 - 50.3 % [facility] MCV 94.0 81.3 - 96.4 fL [facility] MCH 28.8 27.1 - 33.3 pg [facility] MCHC 30.6(L) 32.3 - 35.7 g/dL [facility] RDW CV 18.9(H) 11.1 - 14.9 % [facility] RDW SD 65.3(H) 35.7 - 48.1 fL [facility] Plt 222 150 - 400 K/cumm [facility] MPV 12.2 9.1 - 12.3 fL [facility] NRBC abs 0.00 0.00 - 0.01 K/cumm [facility] Blood specimen (specimen) 10/12/2017 5:18 AM CDT 10/12/2017 5:24 AM CDT Narrative [facility] - 10/12/2017 5:43 AM CDT us Amy Espino Jr., MD LAB BLOOD ORDERABLES Fi nal Result Performing Organization Address [facility] Co de Phone Number [facility] [address] [place] [address] * (ABNORMAL) Protime-INR (10/11/2017 3:40 PM CDT) PT 18.9(H) 10.0 - 13.0 sec [facility] Comment: Note: Coagulation specimens must be collected peripherally for best results. As a result of changes in our Laboratory Information System, selected coagulation test results may be reported prior to identification of contaminated or clotted samples. In such cases, affected tests may subsequently be canceled and re-collection ordered, with notification to nursing. Please contact Hematology at with any questions. INR 1.7(H) 0.9 - 1.2 [facility] Comment: INDICATION: ORTHOPEDIC Total Hip and Knee Arthroplasty ?? 1.8 to 2.6 Hip Fracture ?1.8 to 2.6 CARDIOLOGY Atrial Fibrillation ? 2.0 to 3.0 Cardiomyopathy ?2.0 to 3.0 Myocardial Infarction ? 2.5 to 3.0 Non-pilot point Heart Valve ?2.0 to 3.5 TREATMENT OF VENOUS THROMBOSIS Deep Vein Thrombosis ?2.0 to 3.0 Pulmonary Embolism ?2.0 to 3.0 ?? Note: Coagulation specimens must be collected peripherally for best results. As a result of changes in our Laboratory Information System, selected coagulation test results may be reported prior to identification of contaminated or clotted samples. In such cases, affected tests may subsequently be canceled and re-collection ordered, with notification to nursing. Please contact Hematology at with any questions. Blood specimen (specimen) 10/11/2017 3:40 PM CDT 10/11/2017 3:40 PM CDT Narrative [facility] - 10/11/2017 4:19 PM CDT us Amy Espino Jr., MD LAB BLOOD ORDERABLES Fi nal Result Performing Organization Address [facility] Co de Phone Number [facility] [address] Department of Laboratories [place], [place] [id number] * aPTT (10/11/2017 3:40 PM CDT) [facility] aPTT 32.0 26.0 - 36.0 sec [facility] Comment: Interpretive Data Therapeutic Heparin Range: ??52-80 seconds. Note: Coagulation specimens must be collected peripherally for best results. As a result of changes in our Laboratory Information System, selected coagulation test results may be reported prior to identification of contaminated or clotted samples. In such cases, affected tests may subsequently be canceled and re-collection ordered, with notification to nursing. Please contact Hematology at with any questions. Current Interpretive Data was last revised on 2016. Blood specimen (specimen) 10/11/2017 3:40 PM CDT 10/11/2017 3:40 PM CDT Narrative [facility] - 10/11/2017 4:19 PM CDT Amy Espino Jr., MD LAB BLOOD ORDERABLES Fi nal Result Performing Organization Address [facility] Co de Phone Number [facility] [address] Department [place] [address] * (ABNORMAL) Differential, auto (10/11/2017 3:40 PM CDT) [facility] Neutrophil abs 10.3(H) 1.7 - 6.5 K/cumm [facility] Imm gran abs 0.1 0.0 - 0.1 K/cumm [facility] Lymphocyte abs 0.3(L) 0.8 - 3.3 K/cumm [facility] Monocyte abs 0.8 0.2 - 0.8 K/cumm [facility] Eosinophil abs 0.2 0.0 - 0.5 K/cumm [facility] Basophil abs 0.0 0.0 - 0.1 K/cumm [facility] Neutrophil pct 87.3 % [facility] Comment: Interpretive Data Percent cell count reference ranges are not reported, since discordance with absolute values may lead to misinterpretation of CBC data. Current Interpretive Data was last revised on 2017. Imm gran pct 0.5 % [facility] Comment: Interpretive Data Percent cell count reference ranges are not reported, since discordance with absolute values may lead to misinterpretation of CBC data. Current Interpretive Data was last revised on 2017. Lymphocyte pct 2.9 % [facility] Comment: Interpretive Data Percent cell count reference ranges are not reported, since discordance with absolute values may lead to misinterpretation of CBC data. Current Interpretive Data was last revised on 2017. Monocyte pct 7.2 % [facility] Comment: Interpretive Data Percent cell count reference ranges are not reported, since discordance with absolute values may lead to misinterpretation of CBC data. Current Interpretive Data was last revised on 2017. Eosinophil pct 1.8 % [facility] Comment: Interpretive Data Percent cell count reference ranges are not reported, since discordance with absolute values may lead to misinterpretation of CBC data. Current Interpretive Data was last revised on 2017. Basophil pct 0.3 % [facility] Comment: Interpretive Data Percent cell count reference ranges are not reported, since discordance with absolute values may lead to misinterpretation of CBC data. Current Interpretive Data was last revised on 2017. Blood specimen (specimen) 10/11/2017 3:40 PM CDT 10/11/2017 3:40 PM CDT Narrative [facility] - 10/11/2017 4:03 PM CDT us Amy Espino Jr., MD LAB BLOOD ORDERABLES Fi nal Result [facility] [address] Department [place] [address] * (ABNORMAL) CBC with auto differential (10/11/2017 3:40 PM CDT) WBC 11.8(H) 3.8 - 9.9 K/cumm [facility] RBC 3.00(L) 4.30 - 5.80 M/cumm [facility] Hgb 8.5(L) 13.0 - 17.5 g/dL [facility] Hct 28.8(L) 38.9 - 50.3 % [facility] MCV 96.0 81.3 - 96.4 fL [facility] MCH 28.3 27.1 - 33.3 pg [facility] MCHC 29.5(L) 32.3 - 35.7 g/dL [facility] RDW CV 18.9(H) 11.1 - 14.9 % [facility] RDW SD 66.0(H) 35.7 - 48.1 fL [facility] Plt 237 150 - 400 K/cumm [facility] MPV 12.4(H) 9.1 - 12.3 fL [facility] NRBC abs 0.00 0.00 - 0.01 K/cumm [facility] Blood specimen (specimen) 10/11/2017 3:40 PM CDT 10/11/2017 3:40 PM CDT Narrative [facility] - 10/11/2017 4:03 PM CDT Amy Espino Jr., MD LAB BLOOD ORDERABLES nal Result [facility] [address] Department [place] [address] * XR Chest 1 Vw (10/11/2017 10:36 AM CDT) Anatomical Region Laterality Modality Body, Chest N/A Computed Radiogr aphy Impressions 10/11/2017 3:45 PM CDT 1. ??Extensive bilateral infiltrate or edema which is stable. 2. ??Cardiomegaly with tracheostomy tube in place. Electronically signed by: Jeanmarie Fu M.D. Narrative 10/11/2017 3:45 PM CDT Portable chest. HISTORY: Respiratory failure. Findings tracheostomy tube is present. ??The heart is enlarged. Diffuse bilateral infiltrate or edema is seen at least as severe as on the previous study from October 08. Procedure Note Jeanmarie Fu MD - 10/11/2017 Portable chest. HISTORY: Respiratory failure. Findings tracheostomy tube is present. The heart is enlarged. Diffuse bilateral infiltrate or edema is seen at least as severe as on the previous study from October 08. IMPRESSION: 1. Extensive bilateral infiltrate or edema which is stable. 2. Cardiomegaly with tracheostomy tube in place. Electronically signed by: Jeanmarie Fu M.D. us Sudeep Choi MD IMG XR PROCEDURES Final Res ult * Prepare RBC (10/09/2017 2:58 PM CDT) Product code [id number] [facility] Unit Number [id number] [facility] Product Blood Type APOS [facility] Dispense Status PRESUMED TRANSFUSED [facility] Blood specimen (specimen) 10/09/2017 2:58 PM CDT 10/09/2017 2:58 PM CDT Narrative [facility] - 10/10/2017 10:15 AM CDT us Amy Espino Jr., MD BLOOD BANK PRODUCT ORDE RABLES Final Result Performing Organization Address [facility] Co de Phone Number [facility] [address] Department [place] [address] * Type and screen (10/09/2017 11:20 AM CDT) ABO Rh A Positive [facility] Jonas, indirect Negative [facility] Blood specimen (specimen) 10/09/2017 11:20 AM CDT 10/09/2017 11:53 AM CDT Narrative [facility] - 10/09/2017 1:16 PM CDT us Amy Espino Jr., MD LAB BLOOD BANK TEST ORD ERABLES Final Result [facility] [address] Department [place] [address] * eGFR (10/09/2017 6:45 AM CDT) [facility] Signature eGFR 96 mL/min/1.7 3 m2 [facility] Comment: Interpretive Data Reference Interval Normal ?>/= 90 mL/min/1.73m2 Mildly decreased* ? 60 - 89 mL/min/1.73m2 Mildly to moderately decreased ?45 - 59 mL/min/1.73m2 Moderately to severely decreased ??30 - 44 mL/min/1.73m2 Severely decreased ?15 - 29 mL/min/1.73m2 Kidney Failure ?< 15 ??mL/min/1.73m2 *Relative to young adult level If -[place] multiply value by 1.16. Estimated glomerular filtration [...] was last reviewed 2016. Blood specimen (specimen) 10/09/2017 6:45 AM CDT 10/09/2017 6:59 AM CDT Narrative [facility] - 10/09/2017 7:26 AM CDT us Amy Espino Jr., MD LAB BLOOD ORDERABLES Fi nal Result [facility] [address] Department [place] [address] * (ABNORMAL) Comprehensive metabolic panel (10/09/2017 6:45 AM CDT) Sodium 132(L) 135 - 145 mmol/L [facility] Potassium, pl 4.6 3.3 - 4.9 mmol/L [facility] CO2 33(H) 22 - 32 mmol/L [facility] BUN 32(H) 8 - 25 mg/dL [facility] Glucose 112 70 - 199 mg/dL [facility] Comment: Interpretive Data Fasting glucose >/= 126 [...] interpretive data was last revised 2017. Creatinine 0.72(L) 0.80 - 1.30 mg/dL [facility] Calcium 8.9 8.5 - 10.3 mg/dL [facility] Chloride 93(L) 97 - 110 mmol/L [facility] Albumin 2.7(L) 3.5 - 5.0 g/dL [facility] AST 19 10 - 50 Units/L [facility] ALT 18 7 - 55 Units/L [facility] Alk phos 179(H) 40 - 130 Units/L [facility] Bilirubin, total 0.4 0.1 - 1.2 mg/dL [facility] Protein, pl 5.6(L) 6.5 - 8.5 g/dL [facility] Anion gap 6 2 - 15 mmol/L [facility] Blood specimen (specimen) 10/09/2017 6:45 AM CDT 10/09/2017 6:54 AM CDT Narrative [facility] - 10/09/2017 7:26 AM CDT us Amy Espino Jr., MD LAB BLOOD ORDERABLES Fi nal Result [facility] [address] Department [place] [address] * Phosphorus (10/09/2017 6:45 AM CDT) [facility] Phosphorus, pl 2.6 2.3 - 4.5 mg/dL [facility] Blood specimen (specimen) 10/09/2017 6:45 AM CDT 10/09/2017 6:54 AM CDT Narrative [facility] - 10/09/2017 7:26 AM CDT Amy Espino Jr., MD LAB BLOOD ORDERABLES Fi nal Result [facility] [address] Department [place] [address] * (ABNORMAL) Differential, auto (10/09/2017 6:45 AM CDT) [facility] Neutrophil abs 5.9 1.7 - 6.5 K/cumm [facility] Imm gran abs 0.0 0.0 - 0.1 K/cumm [facility] Lymphocyte abs 0.5(L) 0.8 - 3.3 K/cumm [facility] Monocyte abs 0.7 0.2 - 0.8 K/cumm [facility] Eosinophil abs 0.3 0.0 - 0.5 K/cumm [facility] Basophil abs 0.0 0.0 - 0.1 K/cumm [facility] Neutrophil pct 78.4 % [facility] Comment: Interpretive Data Percent cell count reference ranges are not reported, since discordance with absolute values may lead to misinterpretation of CBC data. Current Interpretive Data was last revised on 2017. Imm gran pct 0.7 % [facility] Comment: Interpretive Data Percent cell count reference ranges are not reported, since discordance with absolute values may lead to misinterpretation of CBC data. Current Interpretive Data was last revised on 2017. Lymphocyte pct 7.2 % [facility] Comment: Interpretive Data Percent cell count reference ranges are not reported, since discordance with absolute values may lead to misinterpretation of CBC data. Current Interpretive Data was last revised on 2017. Monocyte pct 9.6 % [facility] Comment: Interpretive Data Percent cell count reference ranges are not reported, since discordance with absolute values may lead to misinterpretation of CBC data. Current Interpretive Data was last revised on 2017. Eosinophil pct 3.6 % [facility] Comment: Interpretive Data Percent cell count reference ranges are not reported, since discordance with absolute values may lead to misinterpretation of CBC data. Current Interpretive Data was last revised on 2017. Basophil pct 0.5 % [facility] Comment: Interpretive Data Percent cell count reference ranges are not reported, since discordance with absolute values may lead to misinterpretation of CBC data. Current Interpretive Data was last revised on 2017. Blood specimen (specimen) 10/09/2017 6:45 AM CDT 10/09/2017 6:54 AM CDT Narrative [facility] - 10/09/2017 7:05 AM CDT us Amy Espino Jr., MD LAB BLOOD ORDERABLES Fi nal Result [facility] [address] Department [place] [address] * (ABNORMAL) CBC with auto differential (10/09/2017 6:45 AM CDT) WBC 7.5 3.8 - 9.9 K/cumm [facility] RBC 2.35(L) 4.30 - 5.80 M/cumm [facility] Hgb 6.7(L) 13.0 - 17.5 g/dL [facility] Hct 23.0(L) 38.9 - 50.3 % [facility] MCV 97.9(H) 81.3 - 96.4 fL [facility] MCH 28.5 27.1 - 33.3 pg [facility] MCHC 29.1(L) 32.3 - 35.7 g/dL [facility] RDW CV 19.4(H) 11.1 - 14.9 % [facility] RDW SD 69.1(H) 35.7 - 48.1 fL [facility] Plt 226 150 - 400 K/cumm [facility] MPV 12.2 9.1 - 12.3 fL [facility] NRBC abs 0.00 0.00 - 0.01 K/cumm [facility] Blood specimen (specimen) 10/09/2017 6:45 AM CDT 10/09/2017 6:54 AM CDT Narrative [facility] - 10/09/2017 7:05 AM CDT Amy Espino Jr., MD LAB BLOOD ORDERABLES Fi nal Result Performing Organization Address [facility] de Phone Number [facility] [address] [place] [address] * (ABNORMAL) Blood gas, arterial (10/08/2017 8:30 PM CDT) Pathologist [facility] pH, Art 7.39 7.35 - 7.45 [facility] PCO2, Arterial 59(H) 35 - 45 mmHg [facility] PO2, Arterial 82(L) 83 - 108 mmHg [facility] BE, art 9 mmol/L [facility] Comment: Interpretive Data No Reference Range Established Current Interpretive Data was last revised on 2017 O2 Sat Art (Calculated) 96 94 - 98 % [facility] HCO3 Art (Calculated) 36(H) 20 - 30 mmol/L [facility] Blood specimen (specimen) 10/08/2017 8:30 PM CDT 10/08/2017 8:51 PM CDT Narrative [facility] - 10/08/2017 8:54 PM CDT us Amy Espino Jr., MD LAB BLOOD ORDERABLES Fi nal Result Performing Organization Address [facility] Co de Phone Number [facility] [address] [facility] [place] [address] * eGFR (10/08/2017 2:00 PM CDT) eGFR 95 mL/min/1.7 3 m2 [facility] Comment: Interpretive Data Reference Interval Normal ?>/= 90 mL/min/1.73m2 Mildly decreased* ? 60 - 89 mL/min/1.73m2 Mildly to moderately decreased ?45 - 59 mL/min/1.73m2 Moderately to severely decreased ??30 - 44 mL/min/1.73m2 Severely decreased ?15 - 29 mL/min/1.73m2 Kidney Failure ?< 15 ??mL/min/1.73m2 *Relative to young adult level If -[place] multiply value by 1.16. Estimated glomerular filtration [...] was last reviewed 2016. Blood specimen (specimen) 10/08/2017 2:00 PM CDT 10/08/2017 2:24 PM CDT Narrative [facility] - 10/08/2017 2:52 PM CDT us Amy Espino Jr., MD LAB BLOOD ORDERABLES Fi nal Result [facility] [address] Department [place] [address] * (ABNORMAL) Comprehensive metabolic panel (10/08/2017 2:00 PM CDT) Pathologist [facility] Sodium 134(L) 135 - 145 mmol/L [facility] Potassium, pl 5.1(H) 3.3 - 4.9 mmol/L [facility] CO2 35(H) 22 - 32 mmol/L [facility] BUN 33(H) 8 - 25 mg/dL [facility] Glucose 111 70 - 199 mg/dL [facility] Comment: Interpretive Data Fasting glucose >/= 126 [...] 2017. Creatinine 0.73(L) 0.80 - 1.30 mg/dL [facility] Calcium 8.9 8.5 - 10.3 mg/dL [facility] Chloride 92(L) 97 - 110 mmol/L [facility] Albumin 3.0(L) 3.5 - 5.0 g/dL [facility] AST 20 10 - 50 Units/L [facility] ALT 21 7 - 55 Units/L [facility] Alk phos 213(H) 40 - 130 Units/L [facility] Bilirubin, total 0.5 0.1 - 1.2 mg/dL [facility] Protein, pl 6.4(L) 6.5 - 8.5 g/dL [facility] Anion gap 7 2 - 15 mmol/L [facility] Blood specimen (specimen) 10/08/2017 2:00 PM CDT 10/08/2017 2:20 PM CDT Narrative [facility] - 10/08/2017 2:52 PM CDT us Amy Espino Jr., MD LAB BLOOD ORDERABLES Fi nal Result [facility] [address] Department [place] [address] * (ABNORMAL) Differential, auto (10/08/2017 2:00 PM CDT) Neutrophil abs 8.7(H) 1.7 - 6.5 K/cumm [facility] Imm gran abs 0.1 0.0 - 0.1 K/cumm [facility] Lymphocyte abs 0.5(L) 0.8 - 3.3 K/cumm [facility] Monocyte abs 0.8 0.2 - 0.8 K/cumm [facility] Eosinophil abs 0.2 0.0 - 0.5 K/cumm [facility] Basophil abs 0.0 0.0 - 0.1 K/cumm [facility] Neutrophil pct 84.7 % [facility] Comment: Interpretive Data Percent cell count reference ranges are not reported, since discordance with absolute values may lead to misinterpretation of CBC data. Current Interpretive Data was last revised on 2017. Imm gran pct 0.8 % [facility] Comment: Interpretive Data Percent cell count reference ranges are not reported, since discordance with absolute values may lead to misinterpretation of CBC data. Current Interpretive Data was last revised on 2017. Lymphocyte pct 4.9 % [facility] Comment: Interpretive Data Percent cell count reference ranges are not reported, since discordance with absolute values may lead to misinterpretation of CBC data. Current Interpretive Data was last revised on 2017. Monocyte pct 7.5 % [facility] Comment: Interpretive Data Percent cell count reference ranges are not reported, since discordance with absolute values may lead to misinterpretation of CBC data. Current Interpretive Data was last revised on 2017. Eosinophil pct 1.8 % [facility] Comment: Interpretive Data Percent cell count reference ranges are not reported, since discordance with absolute values may lead to misinterpretation of CBC data. Current Interpretive Data was last revised on 2017. Basophil pct 0.3 % [facility] Comment: Interpretive Data Percent cell count reference ranges are not reported, since discordance with absolute values may lead to misinterpretation of CBC data. Current Interpretive Data was last revised on 2017. Blood specimen (specimen) 10/08/2017 2:00 PM CDT 10/08/2017 2:21 PM CDT Narrative [facility] - 10/08/2017 2:34 PM CDT Amy Espino Jr., MD LAB BLOOD ORDERABLES Fi nal Result Performing Organization Address [facility] Co de Phone Number [facility] [address] Department of [employer] [place], [place] [id number] * (ABNORMAL) CBC with auto differential (10/08/2017 2:00 PM CDT) [facility] WBC 10.3(H) 3.8 - 9.9 K/cumm [facility] RBC 2.85(L) 4.30 - 5.80 M/cumm [facility] Hgb 8.2(L) 13.0 - 17.5 g/dL [facility] Hct 28.1(L) 38.9 - 50.3 % [facility] MCV 98.6(H) 81.3 - 96.4 fL [facility] MCH 28.8 27.1 - 33.3 pg [facility] MCHC 29.2(L) 32.3 - 35.7 g/dL [facility] RDW CV 19.3(H) 11.1 - 14.9 % [facility] RDW SD 70.2(H) 35.7 - 48.1 fL [facility] Plt 235 150 - 400 K/cumm [facility] MPV 12.4(H) 9.1 - 12.3 fL [facility] NRBC abs 0.00 0.00 - 0.01 K/cumm [facility] Blood specimen (specimen) 10/08/2017 2:00 PM CDT 10/08/2017 2:21 PM CDT Narrative [facility] - 10/08/2017 2:34 PM CDT Amy Espino Jr., MD LAB BLOOD ORDERABLES Fi nal Result Performing Organization Address [facility] Co de Phone Number [facility] [address] Department of [employer] [place], [place] [id number] * XR Chest 1 Vw (10/08/2017 10:02 AM CDT) Anatomical Region Laterality Modality Body, Chest N/A Computed Radiogr aphy Impressions 10/08/2017 10:29 AM CDT Increasing heart size and left lower lobe consolidation. Electronically signed by: DEVON BATISTA [facility] 10/08/2017 10:29 AM CDT Portable chest x-ray HISTORY: Shortness of breath COMPARISON: Most recently, 09/28/2017 FINDINGS: The tracheostomy tube remains in place. ??There is slight increase in cardiac enlargement and radiographic pulmonary vascular congestion with hilar prominence. ??There is some generalized increase in the interstitial markings with more focal consolidation in the retrocardiac left lower lobe and with at least a small left pleural effusion. Procedure Note Devon Batista MD - 10/08/2017 Portable chest x-ray HISTORY: Shortness of breath COMPARISON: Most recently, 09/28/2017 FINDINGS: The tracheostomy tube remains in place. There is slight increase in cardiac enlargement and radiographic pulmonary vascular congestion with hilar prominence. There is some generalized increase in the interstitial markings with more focal consolidation in the retrocardiac left lower lobe and with at least a small left pleural effusion. IMPRESSION: Increasing heart size and left lower lobe consolidation. Electronically signed by: DEVON BATISTA Amy Espino Jr., MD IMG XR PROCEDURES Final Result * (ABNORMAL) Blood gas, arterial (10/05/2017 9:40 AM CDT) pH, Art 7.36 7.35 - 7.45 [facility] PCO2, Arterial 64(H) 35 - 45 mmHg [facility] PO2, Arterial 112(H) 83 - 108 mmHg [facility] BE, art 8 mmol/L [facility] Comment: Interpretive Data No Reference Range Established Current Interpretive Data was last revised on 2017 O2 Sat Art (Calculated) 98 94 - 98 % [facility] HCO3 Art (Calculated) 36(H) 20 - 30 mmol/L [facility] Blood specimen (specimen) 10/05/2017 9:40 AM CDT 10/05/2017 10:55 AM CDT [facility]ative [facility] - 10/05/2017 10:57 AM CDT us Amy Espino Jr., MD LAB BLOOD ORDERABLES Fi nal Result [facility] [address] Department [place] [address] * eGFR (10/05/2017 4:55 AM CDT) [facility] eGFR 104 mL/min/1.7 3 m2 [facility] Comment: Interpretive Data Reference Interval Normal ?>/= 90 mL/min/1.73m2 Mildly decreased* ? 60 - 89 mL/min/1.73m2 Mildly to moderately decreased ?45 - 59 mL/min/1.73m2 Moderately to severely decreased ??30 - 44 mL/min/1.73m2 Severely decreased ?15 - 29 mL/min/1.73m2 Kidney Failure ?< 15 ??mL/min/1.73m2 *Relative to young adult level If -[place] multiply value by 1.16. Estimated glomerular filtration [...] was last reviewed 2016. Blood specimen (specimen) 10/05/2017 4:55 AM CDT 10/05/2017 5:10 AM CDT Narrative [facility] - 10/05/2017 5:37 AM CDT Amy Espino Jr., MD LAB BLOOD ORDERABLES Fi nal Result Performing Organization Address [facility] Co de Phone Number [facility] [address] Department [place] [address] * (ABNORMAL) Renal function panel (10/05/2017 4:55 AM CDT) Sodium 137 135 - 145 mmol/L [facility] Potassium, pl 5.0(H) 3.3 - 4.9 mmol/L [facility] Chloride 95(L) 97 - 110 mmol/L [facility] CO2 33(H) 22 - 32 mmol/L [facility] Anion gap 9 2 - 15 mmol/L [facility] Glucose 134 70 - 199 mg/dL [facility] Comment: Interpretive Data Fasting glucose >/= 126 [...] Current interpretive data was last revised 2017. BUN 22 8 - 25 mg/dL [facility] Creatinine 0.59(L) 0.80 - 1.30 mg/dL [facility] Calcium 9.4 8.5 - 10.3 mg/dL [facility] Phosphorus, pl 3.1 2.3 - 4.5 mg/dL [facility] Albumin 3.0(L) 3.5 - 5.0 g/dL [facility] Blood specimen (specimen) 10/05/2017 4:55 AM CDT 10/05/2017 5:08 AM CDT Narrative [facility] - 10/05/2017 5:36 AM CDT Amy Espino Jr., MD LAB BLOOD ORDERABLES Fi nal Result [facility] [address] Department [place] [address] * (ABNORMAL) Differential, auto (10/05/2017 4:55 AM CDT) Neutrophil abs 6.6(H) 1.7 - 6.5 K/cumm [facility] Imm gran abs 0.1 0.0 - 0.1 K/cumm [facility] Lymphocyte abs 0.5(L) 0.8 - 3.3 K/cumm [facility] Monocyte abs 0.8 0.2 - 0.8 K/cumm [facility] Eosinophil abs 0.3 0.0 - 0.5 K/cumm [facility] Basophil abs 0.0 0.0 - 0.1 K/cumm [facility] Neutrophil pct 79.1 % [facility] Comment: Interpretive Data Percent cell count reference ranges are not reported, since discordance with absolute values may lead to misinterpretation of CBC data. Current Interpretive Data was last revised on 2017. Imm gran pct 0.7 % [facility] Comment: Interpretive Data Percent cell count reference ranges are not reported, since discordance with absolute values may lead to misinterpretation of CBC data. Current Interpretive Data was last revised on 2017. Lymphocyte pct 6.2 % [facility] Comment: Interpretive Data Percent cell count reference ranges are not reported, since discordance with absolute values may lead to misinterpretation of CBC data. Current Interpretive Data was last revised on 2017. Monocyte pct 9.4 % [facility] Comment: Interpretive Data Percent cell count reference ranges are not reported, since discordance with absolute values may lead to misinterpretation of CBC data. Current Interpretive Data was last revised on 2017. Eosinophil pct 4.0 % [facility] Comment: Interpretive Data Percent cell count reference ranges are not reported, since discordance with absolute values may lead to misinterpretation of CBC data. Current Interpretive Data was last revised on 2017. Basophil pct 0.6 % [facility] Comment: Interpretive Data Percent cell count reference ranges are not reported, since discordance with absolute values may lead to misinterpretation of CBC data. Current Interpretive Data was last revised on 2017. Blood specimen (specimen) 10/05/2017 4:55 AM CDT 10/05/2017 5:08 AM CDT Narrative [facility] - 10/05/2017 5:16 AM CDT Amy Espino Jr., MD LAB BLOOD ORDERABLES [facility] Result [facility] [address] Department [place] [address] * (ABNORMAL) CBC with auto differential (10/05/2017 4:55 AM CDT) WBC 8.3 3.8 - 9.9 K/cumm [facility] RBC 2.72(L) 4.30 - 5.80 M/cumm [facility] Hgb 7.8(L) 13.0 - 17.5 g/dL [facility] Hct 26.4(L) 38.9 - 50.3 % [facility] MCV 97.1(H) 81.3 - 96.4 fL [facility] MCH 28.7 27.1 - 33.3 pg [facility] MCHC 29.5(L) 32.3 - 35.7 g/dL [facility] RDW CV 19.7(H) 11.1 - 14.9 % [facility] RDW SD 69.7(H) 35.7 - 48.1 fL [facility] Plt 273 150 - 400 K/cumm [facility] MPV 12.7(H) 9.1 - 12.3 fL [facility] NRBC abs 0.00 0.00 - 0.01 K/cumm [facility] Blood specimen (specimen) 10/05/2017 4:55 AM CDT 10/05/2017 5:08 AM CDT Narrative [facility] - 10/05/2017 5:16 AM CDT Amy Espino Jr., MD LAB BLOOD ORDERABLES Fi nal Result Performing Organization Address [facility] Co de Phone Number [facility] [address] [employer] [place] [address] * eGFR (10/02/2017 5:48 AM CDT) [facility] eGFR 96 mL/min/1.7 3 m2 [facility] Comment: Interpretive Data Reference Interval Normal ?>/= 90 mL/min/1.73m2 Mildly decreased* ? 60 - 89 mL/min/1.73m2 Mildly to moderately decreased ?45 - 59 mL/min/1.73m2 Moderately to severely decreased ??30 - 44 mL/min/1.73m2 Severely decreased ?15 - 29 mL/min/1.73m2 Kidney Failure ?< 15 ??mL/min/1.73m2 *Relative to young adult level If -[place] multiply value by 1.16. Estimated glomerular filtration [...] was last reviewed 2016. Blood specimen (specimen) 10/02/2017 5:48 AM CDT 10/02/2017 5:52 AM CDT Narrative [facility] - 10/02/2017 6:19 AM CDT us Amy Espino Jr., MD LAB BLOOD ORDERABLES Fi nal Result Performing Organization Address [facility]/ZIP Co de Phone Number [facility] [address] [place] [address] * (ABNORMAL) Basic metabolic panel (10/02/2017 5:48 AM CDT) Pathologist [facility] Sodium 131(L) 135 - 145 mmol/L [facility] Potassium, pl 5.4(H) 3.3 - 4.9 mmol/L [facility] Chloride 93(L) 97 - 110 mmol/L [facility] CO2 30 22 - 32 mmol/L [facility] BUN 25 8 - 25 mg/dL [facility] Glucose 112 70 - 199 mg/dL [facility] Comment: Interpretive Data Fasting glucose >/= 126 [...] interpretive data was last revised 2017. Creatinine 0.71(L) 0.80 - 1.30 mg/dL [facility] Calcium 8.9 8.5 - 10.3 mg/dL [facility] Anion gap 8 2 - 15 mmol/L [facility] Blood specimen (specimen) 10/02/2017 5:48 AM CDT 10/02/2017 5:48 AM CDT Narrative [facility] - 10/02/2017 6:19 AM CDT us Amy Espino Jr., MD LAB BLOOD ORDERABLES Fi nal Result [facility] [address] Department [place] [address] * (ABNORMAL) Differential, auto (10/02/2017 5:48 AM CDT) Neutrophil abs 6.4 1.7 - 6.5 K/cumm [facility] Imm gran abs 0.1 0.0 - 0.1 K/cumm [facility] Lymphocyte abs 0.6(L) 0.8 - 3.3 K/cumm [facility] Monocyte abs 0.8 0.2 - 0.8 K/cumm [facility] Eosinophil abs 0.4 0.0 - 0.5 K/cumm [facility] Basophil abs 0.1 0.0 - 0.1 K/cumm [facility] Neutrophil pct 77.2 % [facility] Comment: Interpretive Data Percent cell count reference ranges are not reported, since discordance with absolute values may lead to misinterpretation of CBC data. Current Interpretive Data was last revised on 2017. Imm gran pct 1.2 % [facility] Comment: Interpretive Data Percent cell count reference ranges are not reported, since discordance with absolute values may lead to misinterpretation of CBC data. Current Interpretive Data was last revised on 2017. Lymphocyte pct 7.6 % [facility] Comment: Interpretive Data Percent cell count reference ranges are not reported, since discordance with absolute values may lead to misinterpretation of CBC data. Current Interpretive Data was last revised on 2017. Monocyte pct 9.0 % [facility] Comment: Interpretive Data Percent cell count reference ranges are not reported, since discordance with absolute values may lead to misinterpretation of CBC data. Current Interpretive Data was last revised on 2017. Eosinophil pct 4.3 % [facility] Comment: Interpretive Data Percent cell count reference ranges are not reported, since discordance with absolute values may lead to misinterpretation of CBC data. Current Interpretive Data was last revised on 2017. Basophil pct 0.7 % [facility] Comment: Interpretive Data Percent cell count reference ranges are not reported, since discordance with absolute values may lead to misinterpretation of CBC data. Current Interpretive Data was last revised on 2017. Blood specimen (specimen) 10/02/2017 5:48 AM CDT 10/02/2017 5:48 AM CDT Narrative [facility] - 10/02/2017 6:02 AM CDT Amy Espino Jr., MD LAB BLOOD ORDERABLES Fi nal Result [facility] [address] [place] [address] * (ABNORMAL) CBC with auto differential (10/02/2017 5:48 AM CDT) WBC 8.3 3.8 - 9.9 K/cumm [facility] RBC 2.62(L) 4.30 - 5.80 M/cumm [facility] Hgb 7.5(L) 13.0 - 17.5 g/dL [facility] Hct 25.1(L) 38.9 - 50.3 % [facility] MCV 95.8 81.3 - 96.4 fL [facility] MCH 28.6 27.1 - 33.3 pg [facility] MCHC 29.9(L) 32.3 - 35.7 g/dL [facility] RDW CV 19.9(H) 11.1 - 14.9 % [facility] RDW SD 69.3(H) 35.7 - 48.1 fL [facility] Plt 267 150 - 400 K/cumm [facility] MPV 12.8(H) 9.1 - 12.3 fL [facility] NRBC abs 0.00 0.00 - 0.01 K/cumm [facility] Blood specimen (specimen) 10/02/2017 5:48 AM CDT 10/02/2017 5:48 AM CDT Narrative [facility] - 10/02/2017 6:02 AM CDT us Amy Espino Jr., MD LAB BLOOD ORDERABLES Fi nal Result [facility] [address] [place] [address] * (ABNORMAL) Blood gas, arterial (09/28/2017 1:30 PM CDT) pH, Art 7.35 7.35 - 7.45 [facility] PCO2, Arterial 58(H) 35 - 45 mmHg [facility] PO2, Arterial 63(L) 83 - 108 mmHg [facility] BE, art 5 mmol/L [facility] Comment: Interpretive Data No Reference Range Established Current Interpretive Data was last revised on 2017 O2 Sat Art (Calculated) 90(L) 94 - 98 % [facility] HCO3 Art (Calculated) 32(H) 20 - 30 mmol/L [facility] Blood specimen (specimen) 09/28/2017 1:30 PM CDT 09/28/2017 1:55 PM CDT Narrative [facility] - 09/28/2017 1:58 PM CDT us Amy Espino Jr., MD LAB BLOOD ORDERABLES Fi nal Result [facility] [address] Department [place] [address] * XR Chest 1 Vw (09/28/2017 8:55 AM CDT) Anatomical Region Laterality Modality Body, Chest N/A Computed Radiogr aphy Impressions 09/28/2017 9:08 AM CDT Improved retrocardiac airspace disease. ??Otherwise no significant interval change. Electronically signed by: FAISAL RANGEL MD Narrative 09/28/2017 9:08 AM CDT CHEST ONE VIEW HISTORY: ACUTE RESP ILLNESS, >40 YEARS OLD. COMPARISON: 09/26/2017 FINDINGS: Tracheostomy cannula remains in place. ??Improving retrocardiac consolidation. ??Persistent small left pleural effusion other diffuse bilateral interstitial and alveolar opacities persist. ??Stable heart and mediastinum. ??Unchanged regional skeleton. Procedure Note Faisal Rangel MD - 09/28/2017 CHEST ONE VIEW HISTORY: ACUTE RESP ILLNESS, >40 YEARS OLD. COMPARISON: 09/26/2017 FINDINGS: Tracheostomy cannula remains in place. Improving retrocardiac consolidation. Persistent small left pleural effusion other diffuse bilateral interstitial and alveolar opacities persist. Stable heart and mediastinum. Unchanged regional skeleton. IMPRESSION: Improved retrocardiac airspace disease. Otherwise no significant interval change. Electronically signed by: FAISAL RANGEL MD Amy Espino Jr., MD IMG XR PROCEDURES Final Result * Hemoglobin A1c (09/27/2017 9:27 PM CDT) [facility] Hgb A1C 4.7 4.0 - 5.6 % [facility] Estimated Average Glucose 88 mg/dL [facility] Comment: The ADA recommends reporting an estimated Average Glucose (eAG) with all Hemoglobin A1c results using the equation derived from a study of 507 normal and diabetic adults. ??Minority populations were underrepresented and children were not included. ?? (Diabetes Care 31:1417-8734, 2007). ??The eAG is not equivalent to a fasting glucose. Blood specimen (specimen) 09/27/2017 9:27 PM CDT 09/27/2017 9:38 PM CDT Narrative [facility] - 09/27/2017 10:25 PM CDT Amy Espino Jr., MD LAB BLOOD ORDERABLES Fi nal Result [facility] [address] Department [place] [address] * (ABNORMAL) Differential, auto (09/27/2017 4:20 AM CDT) [facility] Neutrophil abs 6.7(H) 1.7 - 6.5 K/cumm [facility] Imm gran abs 0.1 0.0 - 0.1 K/cumm [facility] Lymphocyte abs 0.6(L) 0.8 - 3.3 K/cumm [facility] Monocyte abs 0.7 0.2 - 0.8 K/cumm [facility] Eosinophil abs 0.6(H) 0.0 - 0.5 K/cumm [facility] Basophil abs 0.0 0.0 - 0.1 K/cumm [facility] Neutrophil pct 77.5 % [facility] Comment: Interpretive Data Percent cell count reference ranges are not reported, since discordance with absolute values may lead to misinterpretation of CBC data. Current Interpretive Data was last revised on 2017. Imm gran pct 1.2 % [facility] Comment: Interpretive Data Percent cell count reference ranges are not reported, since discordance with absolute values may lead to misinterpretation of CBC data. Current Interpretive Data was last revised on 2017. Lymphocyte pct 6.7 % [facility] Comment: Interpretive Data Percent cell count reference ranges are not reported, since discordance with absolute values may lead to misinterpretation of CBC data. Current Interpretive Data was last revised on 2017. Monocyte pct 7.6 % [facility] Comment: Interpretive Data Percent cell count reference ranges are not reported, since discordance with absolute values may lead to misinterpretation of CBC data. Current Interpretive Data was last revised on 2017. Eosinophil pct 6.4 % [facility] Comment: Interpretive Data Percent cell count reference ranges are not reported, since discordance with absolute values may lead to misinterpretation of CBC data. Current Interpretive Data was last revised on 2017. Basophil pct 0.6 % [facility] Comment: Interpretive Data Percent cell count reference ranges are not reported, since discordance with absolute values may lead to misinterpretation of CBC data. Current Interpretive Data was last revised on 2017. Blood specimen (specimen) 09/27/2017 4:20 AM CDT 09/27/2017 4:56 AM CDT Narrative [facility] - 09/27/2017 6:16 AM CDT Amy Espino Jr., MD LAB BLOOD ORDERABLES nal Result [facility] [address] Department [place] [address] * (ABNORMAL) CBC with auto differential (09/27/2017 4:20 AM CDT) WBC 8.6 3.8 - 9.9 K/cumm [facility] RBC 2.79(L) 4.30 - 5.80 M/cumm [facility] Hgb 8.0(L) 13.0 - 17.5 g/dL [facility] Hct 26.6(L) 38.9 - 50.3 % [facility] MCV 95.3 81.3 - 96.4 fL [facility] MCH 28.7 27.1 - 33.3 pg [facility] MCHC 30.1(L) 32.3 - 35.7 g/dL [facility] RDW CV 18.9(H) 11.1 - 14.9 % [facility] RDW SD 66.3(H) 35.7 - 48.1 fL [facility] Plt 265 150 - 400 K/cumm [facility] Comment:Consistent with prev ious result. MPV 13.1(H) 9.1 - 12.3 fL [facility] NRBC abs 0.00 0.00 - 0.01 K/cumm [facility] Blood specimen (specimen) 09/27/2017 4:20 AM CDT 09/27/2017 4:56 AM CDT Narrative [facility] - 09/27/2017 6:16 AM CDT us Amy Espino Jr., MD LAB BLOOD ORDERABLES Fi nal Result [facility] [address] Department [place] [address] * eGFR (09/27/2017 4:20 AM CDT) eGFR 106 mL/min/1.7 3 m2 [facility] Comment: Interpretive Data Reference Interval Normal ?>/= 90 mL/min/1.73m2 Mildly decreased* ? 60 - 89 mL/min/1.73m2 Mildly to moderately decreased ?45 - 59 mL/min/1.73m2 Moderately to severely decreased ??30 - 44 mL/min/1.73m2 Severely decreased ?15 - 29 mL/min/1.73m2 Kidney Failure ?< 15 ??mL/min/1.73m2 *Relative to young adult level If -[place] multiply value by 1.16. Estimated glomerular filtration [...] was last reviewed 2016. Blood specimen (specimen) 09/27/2017 4:20 AM CDT 09/27/2017 4:58 AM CDT Narrative [facility] - 09/27/2017 5:36 AM CDT Amy Espino Jr., MD LAB BLOOD ORDERABLES Fi nal Result [facility] [address] Department [place] [address] * (ABNORMAL) Renal function panel (09/27/2017 4:20 AM CDT) Sodium 137 135 - 145 mmol/L [facility] Potassium, pl 5.3(H) 3.3 - 4.9 mmol/L [facility] Chloride 101 97 - 110 mmol/L [facility] CO2 23 22 - 32 mmol/L [facility] Anion gap 13 2 - 15 mmol/L [facility] Glucose 99 70 - 199 mg/dL [facility] Comment: Interpretive Data Fasting glucose >/= 126 [...] Current interpretive data was last revised 2017. BUN 24 8 - 25 mg/dL [facility] Creatinine 0.57(L) 0.80 - 1.30 mg/dL [facility] [place] Calcium 8.9 8.5 - 10.3 mg/dL [facility] Phosphorus, pl 3.8 2.3 - 4.5 mg/dL [facility] Albumin 2.4(L) 3.5 - 5.0 g/dL [facility] Blood specimen (specimen) 09/27/2017 4:20 AM CDT 09/27/2017 4:57 AM CDT Narrative [facility] - 09/27/2017 5:36 AM CDT us Amy Espino Jr., MD LAB BLOOD ORDERABLES Fi nal Result [facility] [address] Department [place] [address] * XR Chest 1 Vw (09/26/2017 9:04 AM CDT) Anatomical Region Laterality Modality Body, Chest N/A Computed Radiogr aphy Impressions 09/26/2017 9:30 AM CDT 1. ??Pulmonary vascular redistribution with infiltrates left greater than right probably stable allowing for differences in positioning. Electronically signed by: Jeanmarie Fu M.D. Narrative 09/26/2017 9:30 AM CDT Portable chest. HISTORY: Shortness breath. FINDINGS: There is a tracheostomy tube in place. ??There is a limited degree of inspiration. ??The heart is enlarged. ??Bilateral pulmonary vascular redistribution with diffuse left-sided infiltrates and lesser moderate right-sided infiltrate. ??Left-sided infiltrates are probably stable. Procedure Note Jeanmarie Fu MD - 09/26/2017 Portable chest. HISTORY: Shortness breath. FINDINGS: There is a tracheostomy tube in place. There is a limited degree of inspiration. The heart is enlarged. Bilateral pulmonary vascular redistribution with diffuse left-sided infiltrates and lesser moderate right-sided infiltrate. Left-sided infiltrates are probably stable. IMPRESSION: 1. Pulmonary vascular redistribution with infiltrates left greater than right probably stable allowing for differences in positioning. Electronically signed by: Jeanmarie Fu M.D. us Amy Espino Jr., MD IMG XR PROCEDURES Final Result * Procalcitonin (09/25/2017 9:15 AM CDT) Procalcitonin 0.15 0.02 - 0.80 ng/mL [facility] Blood specimen (specimen) 09/25/2017 9:15 AM CDT 09/25/2017 9:27 AM CDT Narrative [facility] - 09/25/2017 1:17 PM CDT us Amy Espino Jr., MD LAB BLOOD ORDERABLES Fi nal Result [facility] [address] Department [place] [address] * TRANSTHORACIC ECHO (TTE) COMPLETE W DOPPLER/CF WO CONTRAST (09/24/2017 12:34 PM CDT) Anatomical Region Laterality Modality Ultrasound 09/24/2017 12:0 1 PM CDT Narrative 09/24/2017 2:20 PM CDT [facility] [address] [place] [address] ECHOCARDIOGRAM Patient Name: MASON JANG : 1951 Study Date: 09/24/2017 12:01:36 PM Gender: M Tech: PARUL BP: 124/70 Height(Cm): 180 Weight(Kg): 116.1 Ref. Physician: AMY ESPINO Location: [id number] BSA: 2.41 Order Physician: AMY ESPINO Procedures: Echocardiographic Report: Transthoracic Echocardiogram with complete 2D, M-Mode, Spectral and Color Flow Doppler examination. Indications: Atrial fibrillation, and Tricuspid valve disease. Measurements: 2D/M Mode ?Doppler ? Measurement ?Value ?Normal Range ? Measurement ?Value ?Normal Range ? IVSd 2D ?1.21 ? [ 0.60 - 0.90 ] cm ? AV Peak Bam ?1.2 ?[ 1.0 - 1.7 ] m/s ? LVIDd 2D ? 3.25 ? [ 4.20 - 5.90 ] cm ? AV Peak PG ? 6 ?[ 2 - 9 ] mmHg ? LVIDs 2D ? 2.24 ? [ 2.30 - 3.90 ] cm ? AV Mean PG ? 4 ?[ 2 - 4 ] mmHg ? LVPWd 2D ? 1.15 ? [ 0.60 - 1.00 ] cm ? AV VTI ? 22.0 ? cm ? LA Dimension 2D ?4.13 ? [ 3.00 - 4.00 ] cm ? ASHOK VTI ?2.6 ?[ 2.0 - 4.0 ] cm2 ? AoR Diam 2D ?3.46 ? [ 2.60 - 3.70 ] cm ? LVOT Peak Bam ?0.83 ? [ 0.70 - 1.10 ] m/s ? LA Volume Index ?41.42 ?[ 16.00 - 28.00 ] ml/m2 ?LVOT Diam ?2.3 ?[ 1.7 - 2.1 ] cm ? TAPSE ?1.24 ? [ 1.60 - 3.00 ] cm ? LVOT Peak PG ? 3 ?[ 2 - 6 ] mmHg ? LVOT VTI ? 13.9 ? [ 20.0 - 30.0 ] cm ? MV Peak PG ? 4 ?[ 1 - 10 ] mmHg ? MV Mean PG ? 1 ?mmHg ? MV E Peak Bam ?1.0 ?[ 0.6 - 1.3 ] m/s ? MV A Peak Bam ?0.3 ?[ 1.0 - 1.2 ] m/s ? MV PHT ? 63.0 ? [ 20.0 - 100.0 ] ms ? MV Decel Time ?156.8 ?[ 104.0 - 258.0 ] ms ? MVA PHT ?3.5 ?[ 2.0 - 4.0 ] ms ? MV E/A Ratio ? 3.3 ? RA Pressure ?3.0 ?mmHg ? PV Peak Bam ?1.0 ?[ 0.4 - 0.8 ] m/s ? Lat E` Bam ? 0.13 ? [ 0.10 - 0.15 ] m/s ? Sept E' Bam ?0.10 ? [ 0.08 - 0.15 ] m/s ? E/E` ? 7.69 ? RV S' ?0.08 ? m/s ? Findings: Study Quality: Technically good study. BP: Blood pressure: 124/70 mmHg. Left Ventricle: Normal global and regional left ventricular systolic function. EF 65%. Left ventricular diastolic function is indeterminate. Normal left ventricular cavity size. Right Ventricle: Low normal right ventricular systolic function. Normal right ventricular size. Left Atrium: There is mild enlargement of the left atrium. Right Atrium: The right atrium is normal in size. Atrial Septum: Normal appearing atrial septum. Mitral Valve: Normal mitral valve appearance and function. Mild mitral valve regurgitation. Aortic Valve: Aortic valve cusps appear mildly sclerotic. Tricuspid Valve: Normal tricuspid valve appearance and function. Mild tricuspid regurgitation. Normal right ventricular systolic pressure. Pulmonic Valve: Normal appearance and function of the pulmonic valve. Trace pulmonic regurgitation. Pericardium: No significant pericardial effusion. Aortic Root and Aorta: Normal caliber aortic root. Aortic Arch: The aortic arch is not seen. IVC: Normal appearance of the inferior vena cava. Conclusions: 1. Normal global and regional left ventricular systolic function. EF 65%. Left ventricular diastolic function is indeterminate. Normal left ventricular cavity size. 2. Low normal right ventricular systolic function. Normal right ventricular size. 3. There is mild enlargement of the left atrium. 4. Aortic valve cusps appear mildly sclerotic. 5. Normal tricuspid valve appearance and function. Mild tricuspid regurgitation. Normal right ventricular systolic pressure. 6. Normal mitral valve appearance and function. Mild mitral valve regurgitation. Electronically Signed By: Jeremiah Barrera DO [facility] 2017-09-24 14:19:56 CDT CC: CC: Procedure Note Jeremiah Barrera, DO - 09/24/2017 [facility] [address] [place] [address] ECHOCARDIOGRAM Patient Name: GUY JANGatient ID: [id number] : [id number] Date: 09/24/2017 12:01:36 PM Gender: Yudith: PARUL 124/70 Height(Cm): 180Weight(Kg): 116.1 Ref. Physician: AMY ESPINOLocation: [id number] BSA: 2.41 Order Physician: AMY ESPINO Procedures: Echocardiographic Report: Transthoracic Echocardiogram with complete 2D, M-Mode, Spectral and ColorFlow Doppler examination. Indications: Atrial fibrillation, and Tricuspid valve disease. Measurements: 2D/M Mode Doppler Measurement Value Normal Range MeasurementValue Normal Range IVSd 2D 1.21 [ 0.60 - 0.90 ] cm AV Peak Vel1.2 [ 1.0 - 1.7 ] m/s LVIDd 2D 3.25 [ 4.20 - 5.90 ] cm AV Peak PG 6[ 2 - 9 ] mmHg LVIDs 2D 2.24 [ 2.30 - 3.90 ] cm AV Mean PG 4[ 2 - 4 ] mmHg LVPWd 2D 1.15 [ 0.60 - 1.00 ] cm AV VTI22.0 cm LA Dimension 2D 4.13 [ 3.00 - 4.00 ] cm ASHOK VTI2.6 [ 2.0 - 4.0 ] cm2 AoR Diam 2D 3.46 [ 2.60 - 3.70 ] cm LVOT Peak Vel0.83 [ 0.70 - 1.10 ] m/s LA Volume Index 41.42 [ 16.00 - 28.00 ] ml/m2 LVOT Diam2.3 [ 1.7 - 2.1 ] cm TAPSE 1.24 [ 1.60 - 3.00 ] cm LVOT Peak PG 3[ 2 - 6 ] mmHg LVOT VTI13.9 [ 20.0 - 30.0 ] cm MV Peak PG 4[ 1 - 10 ] mmHg MV Mean PG 1mmHg MV E Peak Vel1.0 [ 0.6 - 1.3 ] m/s MV A Peak Vel0.3 [ 1.0 - 1.2 ] m/s MV PHT63.0 [ 20.0 - 100.0 ] ms MV Decel Zpxj818.8 [ 104.0 - 258.0 ] ms MVA PHT3.5 [ 2.0 - 4.0 ] ms MV E/A Ratio3.3 RA Pressure3.0 mmHg PV Peak Vel1.0 [ 0.4 - 0.8 ] m/s Lat E` Vel0.13 [ 0.10 - 0.15 ] m/s Sept E' Vel0.10 [ 0.08 - 0.15 ] m/s E/E`7.69 RV S'0.08 m/s Findings: Study Quality: Technically good study. BP: Blood pressure: 124/70 mmHg. Left Ventricle: Normal global and regional left ventricular systolic function. EF 65%.Left ventricular diastolic function is indeterminate. Normal left ventricular cavitysize. Right Ventricle: Low normal right ventricular systolic function. Normal right ventricularsize. Left Atrium: There is mild enlargement of the left atrium. Right Atrium: The right atrium is normal in size. Atrial Septum: Normal appearing atrial septum. Mitral Valve: Normal mitral valve appearance and function. Mild mitral valveregurgitation. Aortic Valve: Aortic valve cusps appear mildly sclerotic. Tricuspid Valve: Normal tricuspid valve appearance and function. Mild tricuspidregurgitation. Normal right ventricular systolic pressure. Pulmonic Valve: Normal appearance and function of the pulmonic valve. Trace pulmonicregurgitation. Pericardium: No significant pericardial effusion. Aortic Root and Aorta: Normal caliber aortic root. Aortic Arch: The aortic arch is not seen. IVC: Normal appearance of the inferior vena cava. Conclusions: 1. Normal global and regional left ventricular systolic function. EF 65%.Left ventricular diastolic function is indeterminate. Normal left ventricularcavity size. 2. Low normal right ventricular systolic function. Normal rightventricular size. 3. There is mild enlargement of the left atrium. 4. Aortic valve cusps appear mildly sclerotic. 5. Normal tricuspid valve appearance and function. Mild tricuspidregurgitation. Normal right ventricular systolic pressure. 6. Normal mitral valve appearance and function. Mild mitral valveregurgitation. Electronically Signed By: Jeremiah Barrera DO [facility] 2017-09-24 14:19:56 CDT CC: CC: us Amy Espino Jr., MD CV ECHO PROCEDURES Yajaira l Result * XR Chest 1 Vw (09/24/2017 11:10 AM CDT) Anatomical Region Laterality Modality Body, Chest N/A Computed Radiogr aphy Impressions 09/24/2017 11:33 AM CDT 1. ??Improving left-sided airspace disease with persistent more dense consolidation in the retrocardiac region. 2. ??Decreased small left pleural effusion. 3. ??Unchanged diffuse right-sided airspace disease. Electronically signed by: FAISAL RANGEL MD Narrative 09/24/2017 11:33 AM CDT CHEST ONE VIEW HISTORY: PNEUMONIA, UNRESOLVED. COMPARISON: 09/22/2017 FINDINGS: Tracheostomy cannula remains in expected position. ??Small to moderate left pleural effusion persists. ??Left-sided hazy airspace opacities in the mid upper lung zone are improving. ??Retrocardiac consolidation persists with perhaps some mild improved aeration. ??Mild diffuse right interstitial opacities persist. ??No pneumothorax. ??Unchanged regional skeleton. Procedure Note Faisal Rangel MD - 09/24/2017 CHEST ONE VIEW HISTORY: PNEUMONIA, UNRESOLVED. COMPARISON: 09/22/2017 FINDINGS: Tracheostomy cannula remains in expected position. Small to moderate left pleural effusion persists. Left-sided hazy airspace opacities in the mid upper lung zone are improving. Retrocardiac consolidation persists with perhaps some mild improved aeration. Mild diffuse right interstitial opacities persist. No pneumothorax. Unchanged regional skeleton. IMPRESSION: 1. Improving left-sided airspace disease with persistent more dense consolidation in the retrocardiac region. 2. Decreased small left pleural effusion. 3. Unchanged diffuse right-sided airspace disease. Electronically signed by: FAISAL RANGEL MD Amy Espino Jr., MD IMG XR PROCEDURES Final Result * (ABNORMAL) Blood gas, arterial (09/24/2017 5:30 AM CDT) pH, Art 7.37 7.35 - 7.45 [facility] PCO2, Arterial 59(H) 35 - 45 mmHg [facility] PO2, Arterial 102 83 - 108 mmHg [facility] BE, art 7 mmol/L [facility] Comment: Interpretive Data No Reference Range Established Current Interpretive Data was last revised on 2017 O2 Sat Art (Calculated) 98 94 - 98 % [facility] HCO3 Art (Calculated) 34(H) 20 - 30 mmol/L [facility] Blood specimen (specimen) 09/24/2017 5:30 AM CDT 09/24/2017 6:07 AM CDT Narrative [facility] - 09/24/2017 6:11 AM CDT Amy Espino Jr., MD LAB BLOOD ORDERABLES Fi nal Result Performing Organization Address [facility] de Phone Number [facility] [address] [facility] [place] [address] * (ABNORMAL) Aerobic culture and gram stain (09/23/2017 7:57 AM CDT) Direct Specimen Exam Stain: Few Epithelial cells , Moderate WBC's , Moderate Gram Positive Bacilli [facility] Report Final Report: Moderate growth of: Stenotrophomonas maltophilia Susceptibility reported on this organism on previous culture [id number] Moderate growth of: Corynebacterium striatum (.) [facility] Organism STENOTROPHOMONAS MALTOPHILIA [facility] Organism CORYNEBACTERIUM STRIATUM [facility] Bronchial washing 09/23/2017 7:57 AM CDT 09/23/2017 9:02 AM CDT Narrative [facility] - 09/25/2017 12:11 PM CDT Amy Espino Jr., MD LAB MICROBIOLOGY - GENE RAL ORDERABLES Final Result Performing Organization Address [facility] de Phone Number [facility] [address] [facility] [place] [address] * XR Chest 1 Vw (09/22/2017 8:33 AM CDT) Anatomical Region Laterality Modality Body, Chest N/A Computed Radiogr aphy Impressions 09/22/2017 9:03 AM CDT Increasing pleural/parenchymal opacity on the left. Otherwise stable study. Electronically signed by: Bruce Mcclain M.D. Narrative 09/22/2017 9:03 AM CDT Chest HISTORY: Shortness of breath. ??Atrial fibrillation. ??Infiltrates. FINDINGS: Frontal view of the chest compared to 09/19/2017. Tracheostomy present. Cardiomegaly. Pulmonary vascular congestion present with central edema increased slightly from prior study. Small pleural effusion on the right unchanged. Increasing diffuse opacity throughout the left hemithorax likely increasing pleural effusion although there may be some underlying atelectasis or infiltrate. No pneumothorax seen. Procedure Note Bruce Mcclain MD - 09/22/2017 Chest HISTORY: Shortness of breath. Atrial fibrillation. Infiltrates. FINDINGS: Frontal view of the chest compared to 09/19/2017. Tracheostomy present. Cardiomegaly. Pulmonary vascular congestion present with central edema increased slightly from prior study. Small pleural effusion on the right unchanged. Increasing diffuse opacity throughout the left hemithorax likely increasing pleural effusion although there may be some underlying atelectasis or infiltrate. No pneumothorax seen. IMPRESSION: Increasing pleural/parenchymal opacity on the left. Otherwise stable study. Electronically signed by: Bruce Mcclain M.D. Amy Espino Jr., MD IMG XR PROCEDURES Final Result * (ABNORMAL) Aerobic culture and gram stain (09/20/2017 3:00 PM CDT) Direct Specimen Exam Stain: <10 Epithelial cells/lf, >25 WBC's/lf , Few Gram Positive Bacilli , Rare Gram Positive Cocci [facility] Report Final Report: No normal robert Moderate growth of: Corynebacterium striatum Light growth of: Stenotrophomonas maltophilia Multi-drug resistant organism result called to and read back by Javed Riley RN on 09/22/2017 11:54:25 by BNNia This is a multi-drug resistant organism. Inpatients require contact isolation. (.) [facility] Organism CORYNEBACTERIUM STRIATUM [facility] Organism STENOTROPHOMONAS MALTOPHILIA [facility] Sputum 09/20/2017 3:00 PM CDT 09/20/2017 3:14 PM CDT Narrative [facility] - 09/23/2017 12:06 PM CDT Organism Antibiotic Method Susceptibility Stenotrophomonas maltophilia Levofloxacin (UMESH) INTERPRETATION Susceptible Stenotrophomonas maltophilia Trimethoprim with Sulfamethoxazole (UMESH) INTERPRETATION Susceptible Amy Espino Jr., MD LAB MICROBIOLOGY - GENE RAL ORDERABLES Final Result Performing Organization Address [facility] Co de Phone Number [facility] [address] [facility] [place] [address] * Lactate, whole blood (09/20/2017 12:15 PM CDT) Lactate, bld 1.9 0.5 - 2.2 mmol/L [facility] Blood specimen (specimen) 09/20/2017 12:15 PM CDT 09/20/2017 12:31 PM CDT Narrative [facility] - 09/20/2017 12:34 PM CDT Amy Espino Jr., MD LAB BLOOD ORDERABLES Fi nal Result Performing Organization Address [facility] de Phone Number [facility] [address] [facility] [place] [address] * (ABNORMAL) Blood gas, arterial (09/19/2017 8:20 PM CDT) pH, Art 7.55(H) 7.35 - 7.45 [facility] PCO2, Arterial 42 35 - 45 mmHg [facility] PO2, Arterial 54(L) 83 - 108 mmHg [facility] BE, art 13 mmol/L [facility] Comment: Interpretive Data No Reference Range Established Current Interpretive Data was last revised on 2017 O2 Sat Art (Calculated) 92(L) 94 - 98 % [facility] HCO3 Art (Calculated) 37(H) 20 - 30 mmol/L [facility] Blood specimen (specimen) 09/19/2017 8:20 PM CDT 09/19/2017 8:30 PM CDT Narrative [facility] - 09/19/2017 8:34 PM CDT Amy Espino Jr., MD LAB BLOOD ORDERABLES Fi nal Result Performing Organization Address [facility] Co de Phone Number [facility] [address] [place] [address] * eGFR (09/19/2017 6:15 PM CDT) [facility] Signature eGFR 99 mL/min/1.7 3 m2 [facility] Comment: Interpretive Data Reference Interval Normal ?>/= 90 mL/min/1.73m2 Mildly decreased* ? 60 - 89 mL/min/1.73m2 Mildly to moderately decreased ?45 - 59 mL/min/1.73m2 Moderately to severely decreased ??30 - 44 mL/min/1.73m2 Severely decreased ?15 - 29 mL/min/1.73m2 Kidney Failure ?< 15 ??mL/min/1.73m2 *Relative to young adult level If -[place] multiply value by 1.16. Estimated glomerular filtration [...] was last reviewed 2016. Blood specimen (specimen) 09/19/2017 6:15 PM CDT 09/19/2017 6:50 PM CDT Narrative [facility] - 09/19/2017 7:18 PM CDT us Amy Espino Jr., MD LAB BLOOD ORDERABLES Fi nal Result Performing Organization Address [facility] Co de Phone Number [facility] [address] Department [place] [address] * (ABNORMAL) Comprehensive metabolic panel (09/19/2017 6:15 PM CDT) Sodium 140 135 - 145 mmol/L [facility] Potassium, pl 4.7 3.3 - 4.9 mmol/L [facility] CO2 34(H) 22 - 32 mmol/L [facility] BUN 25 8 - 25 mg/dL [facility] Glucose 89 70 - 199 mg/dL [facility] Comment: Interpretive Data Fasting glucose >/= 126 [...] interpretive data was last revised 2017. Creatinine 0.66(L) 0.80 - 1.30 mg/dL [facility] Calcium 9.5 8.5 - 10.3 mg/dL [facility] Chloride 96(L) 97 - 110 mmol/L [facility] Albumin 3.1(L) 3.5 - 5.0 g/dL [facility] AST 28 10 - 50 Units/L [facility] ALT 22 7 - 55 Units/L [facility] Alk phos 221(H) 40 - 130 Units/L [facility] Bilirubin, total 0.8 0.1 - 1.2 mg/dL [facility] Protein, pl 6.9 6.5 - 8.5 g/dL [facility] Anion gap 10 2 - 15 mmol/L [facility] Blood specimen (specimen) 09/19/2017 6:15 PM CDT 09/19/2017 6:44 PM CDT Narrative [facility] - 09/19/2017 7:18 PM CDT us Amy Espino Jr., MD LAB BLOOD ORDERABLES Fi nal Result [facility] [address] Department [place] [address] * (ABNORMAL) Differential, auto (09/19/2017 6:15 PM CDT) Neutrophil abs 7.6(H) 1.7 - 6.5 K/cumm [facility] Imm gran abs 0.1 0.0 - 0.1 K/cumm [facility] Lymphocyte abs 0.6(L) 0.8 - 3.3 K/cumm [facility] Monocyte abs 0.9(H) 0.2 - 0.8 K/cumm [facility] Eosinophil abs 0.5 0.0 - 0.5 K/cumm [facility] Basophil abs 0.0 0.0 - 0.1 K/cumm [facility] Neutrophil pct 78.5 % [facility] Comment: Interpretive Data Percent cell count reference ranges are not reported, since discordance with absolute values may lead to misinterpretation of CBC data. Current Interpretive Data was last revised on 2017. Imm gran pct 0.6 % [facility] Comment: Interpretive Data Percent cell count reference ranges are not reported, since discordance with absolute values may lead to misinterpretation of CBC data. Current Interpretive Data was last revised on 2017. Lymphocyte pct 6.4 % [facility] Comment: Interpretive Data Percent cell count reference ranges are not reported, since discordance with absolute values may lead to misinterpretation of CBC data. Current Interpretive Data was last revised on 2017. Monocyte pct 9.3 % [facility] Comment: Interpretive Data Percent cell count reference ranges are not reported, since discordance with absolute values may lead to misinterpretation of CBC data. Current Interpretive Data was last revised on 2017. Eosinophil pct 4.8 % [facility] Comment: Interpretive Data Percent cell count reference ranges are not reported, since discordance with absolute values may lead to misinterpretation of CBC data. Current Interpretive Data was last revised on 2017. Basophil pct 0.4 % [facility] Comment: Interpretive Data Percent cell count reference ranges are not reported, since discordance with absolute values may lead to misinterpretation of CBC data. Current Interpretive Data was last revised on 2017. Blood specimen (specimen) 09/19/2017 6:15 PM CDT 09/19/2017 6:44 PM CDT Narrative [facility] - 09/19/2017 7:02 PM CDT us Amy Espino Jr., MD LAB BLOOD ORDERABLES Fi nal Result Performing Organization Address City/State/[facility] Co de Phone Number [facility] [address] Department [place] [address] * (ABNORMAL) CBC with auto differential (09/19/2017 6:15 PM CDT) WBC 9.8 3.8 - 9.9 K/cumm [facility] RBC 3.14(L) 4.30 - 5.80 M/cumm [facility] Hgb 8.9(L) 13.0 - 17.5 g/dL [facility] Hct 31.2(L) 38.9 - 50.3 % [facility] MCV 99.4(H) 81.3 - 96.4 fL [facility] MCH 28.3 27.1 - 33.3 pg [facility] MCHC 28.5(L) 32.3 - 35.7 g/dL [facility] RDW CV 20.6(H) 11.1 - 14.9 % [facility] RDW SD 76.1(H) 35.7 - 48.1 fL [facility] Plt 221 150 - 400 K/cumm [facility] MPV 13.6(H) 9.1 - 12.3 fL [facility] NRBC abs 0.00 0.00 - 0.01 K/cumm [facility] Blood specimen (specimen) 09/19/2017 6:15 PM CDT 09/19/2017 6:44 PM CDT Narrative [facility] - 09/19/2017 7:02 PM CDT us Amy Espino Jr., MD LAB BLOOD ORDERABLES Ed ited Result - Final Performing Organization Address City/[facility] Co de Phone Number [facility] [address] Department [place] [address] * (ABNORMAL) Lactate, whole blood (09/19/2017 6:15 PM CDT) Lactate, bld 2.3(H) 0.5 - 2.2 mmol/L [facility] Blood specimen (specimen) 09/19/2017 6:15 PM CDT 09/19/2017 6:45 PM CDT Narrative [facility] - 09/19/2017 6:49 PM CDT us Amy Espino Jr., MD LAB BLOOD ORDERABLES Fi nal Result Performing Organization Address [facility] Co de Phone Number [facility] [address] Department [place] [address] * XR Abdomen Ap 1 Vw (09/19/2017 5:20 PM CDT) Anatomical Region Laterality Modality Body, Abdomen N/A Computed Radiogr aphy Impressions 09/19/2017 5:44 PM CDT 1. ??No evidence of bowel obstruction. 2. ??Left lung base opacification. Electronically signed by: TANVIR VANCE MD Narrative 09/19/2017 5:44 PM CDT EXAM: XR ABDOMEN AP 1 VIEW ?? INDICATION: ABDOMINAL PAIN COMPARISON: None available. FINDINGS: Bilateral hip arthroplasties noted. ??There is opacification of the left lung base. ??Catheter tubing overlies the left upper quadrant. ??There is a nonspecific bowel gas pattern without evidence of obstruction. ??Apparent spinal fusion device projects at L2-L3. Procedure Note Tanvir Vance MD - 09/19/2017 EXAM: XR ABDOMEN AP 1 VIEW INDICATION: ABDOMINAL PAIN COMPARISON: None available. FINDINGS: Bilateral hip arthroplasties noted. There is opacification of the left lung base. Catheter tubing overlies the left upper quadrant. There is a nonspecific bowel gas pattern without evidence of obstruction. Apparent spinal fusion device projects at L2-L3. IMPRESSION: 1. No evidence of bowel obstruction. 2. Left lung base opacification. Electronically signed by: TANVIR VANCE MD MD SHARRI Horvath Jr. XR PROCEDURES Final Result * XR Chest 1 Vw (09/19/2017 5:20 PM CDT) Anatomical Region Laterality Modality Body, Chest N/A Computed Radiogr aphy Impressions 09/19/2017 5:27 PM CDT 1. ??Volume loss and opacification of the left hemithorax. 2. ??Tracheostomy tube in place. Electronically signed by: Jeanmarie Fu M.D. Narrative 09/19/2017 5:27 PM CDT Portable chest. HISTORY: Shortness of breath. Findings there is a tracheostomy tube in place. ??There is opacity in the left mid to lower lung field with mild volume loss in the left hemithorax. ??Left-sided atelectasis/infiltrate and possibly small left pleural effusion. ??There is a small amount of infiltrate in the right lateral costophrenic angles well. Procedure Note Jeanmarie Fu MD - 09/19/2017 Portable chest. HISTORY: Shortness of breath. Findings there is a tracheostomy tube in place. There is opacity in the left mid to lower lung field with mild volume loss in the left hemithorax. Left-sided atelectasis/infiltrate and possibly small left pleural effusion. There is a small amount of infiltrate in the right lateral costophrenic angles well. IMPRESSION: 1. Volume loss and opacification of the left hemithorax. 2. Tracheostomy tube in place. Electronically signed by: Jeanmarie Fu M.D. MD SHARRI Horvath Jr. XR PROCEDURES Final Result documented in this encounter Visit Diagnoses Diagnosis Respiratory failure (CMS/HCC) (HCC) Acute respiratory failure documented in this encounter Care Teams Admin Prog Coord Relationship Specialty Start Date End Date Briana Medeiros MD [address] [place] [address] PCP - General 07/06/12 03/24/22 documented as of this encounter
--- OUTSIDE RECORDS SUMMARY | 2024-05-24 23:24 | XMS_ITS | Encounter Summary ---
Author Organization [facility] Healthcare Address [address] [place] [address] Care Team Providers Care Auction Clerk Name Role Phone Briana Medeiros MD Primary Care Provider [phone] Napoleon Birmingham MD Primary Care Provider [phone] Cleo Funk DO Primary Care Provider + Encounter Details Date Type Department Care Team (Late st Contact Info) Description 10/24/2017 Telephone [facility] Physical Medicine and Rehabilitation [facility] [place] [address] Katya Oliver, DONTAE Social History Tobacco Use Types Packs/Day Years Used Date Smoking Tobacco: Former Smokeless Tobacco: Never Alcohol Use Standard Drinks/Week Comments No 0 (1 standard drink = 0.6 oz pur e alcohol) Sex and Gender Information Value Date Recorded Sex Assigned at Not on file 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 Gender Identity Not on file Sexual Orientation Not on file documented as of this encounter Last Filed Vital Signs Vital Sign Reading Time Taken Comments Blood Pressure - - Pulse - - Temperature - - Respiratory Rate - - Oxygen Saturation - - Inhaled Oxygen Concentration - - Weight 88.9 kg (196 lb) 10/24/2017 1:54 PM CDT Height - - Body Mass Index 27.34 02/22/2017 8:43 AM CDT documented in this encounter Plan of Treatment Not on file documented as of this encounter Visit Diagnoses Not on filedocumented in this encounter Additional Health Concerns Infection Onset Date Last Indicated Resolved Time 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 10/25/2017 10/25/2017 11/07/2017 8:04 AM C DT MDR gram neg/ESBL Comment:Stenotrophomonas 09/20, 09/23, 10/13 Completed antibiotic treatment symptoms have resolved 10/28/2017 10/28/2017 11/07/2017 8:04 A M CDT documented as of this encounter Care Teams Auction Clerk Relationship Specialty Start Date End Date Briana Medeiros MD [address] [place] [address] PCP - General 07/06/12 03/24/22 Napoleon Birmingham MD [address] [place] [address] PCP - General Family Medicine 03/25/22 03/26/24 Cleo Funk DO [address] [place] [address] [place] [address] PCP - General Family Medicine 03/27/24 documented as of this encounter
--- OUTSIDE RECORDS SUMMARY | 2024-05-24 23:25 | XMS_ITS | Encounter Summary ---
Author Organization [facility] Address [address] [place] [address] Care Team Providers Care Airport Sales Agent Name Role Phone Briana Medeiros MD Primary Care Provider [phone] Encounter Details Date Type Department Care Team (Late st Contact Info) Description 07/15/2017 Orders Only [facility] Cardiology [address] [facility] [address] [place] [id number] Provider, MD Claire [address] [place] [address] Social History Tobacco Use Types Packs/Day Years Used Date Smoking Tobacco: Never Assessed Alcohol Use Standard Drinks/Week Comments No 0 (1 standard drink = 0.6 oz pur e alcohol) Sex and Gender Information Value Date Recorded Sex Assigned at Not on file 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 Gender Identity Not on file Sexual Orientation Not on file documented as of this encounter Plan of Treatment Not on file documented as of this encounter Procedures Procedure Name Priority Date/Time Associated Diagnosis Comments TRANSTHORACIC ECHO (TTE) COM PLETE W DOPPLER/CF Routine 07/06/2017 documented in this encounter Results * Transthoracic Echo Complete W Doppler/CF (07/06/2017) Anatomical Region Laterality Modality Ultrasound Historical Provider MD COLEMAN ECHO PROCEDURES Final Result documented in this encounter Visit Diagnoses Not on filedocumented in this encounter Care Teams Airport Sales Agent Relationship Specialty Start Date End Date Briana Medeiros MD [address] [place] [address] PCP - General 07/06/12 03/24/22 documented as of this encounter
--- OUTSIDE RECORDS SUMMARY | 2024-05-24 23:25 | XMS_ITS | Encounter Summary ---
Author Organization [facility] Address [address] [facility] [place] [address] Care Team Providers Care Education Counselor Name Role Phone Briana Medeiros MD Primary Care Provider [phone] Reason for Visit * Reason Comments Follow-up yearly Encounter Details Date Type Department Care Team (Late st Contact Info) Description 02/22/2017 8:15 AM CDT Office Visit [facility] [address] [address] Epi Lake MD [address] [facility] [address] [facility] [address] [place] [address] Chronic atrial fibrillation (CMS/HCC) (Primary Dx) Social History Tobacco Use Types Packs/Day Years Used Date Smoking Tobacco: Never Assessed Alcohol Use Standard Drinks/Week Comments No 0 (1 standard drink = 0.6 oz pur e alcohol) Sex and Gender Information Value Date Recorded Sex Assigned at Not on file 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 Gender Identity Not on file Sexual Orientation Not on file documented as of this encounter Last Filed Vital Signs Vital Sign Reading Time Taken Comments Blood Pressure 124/70 02/22/2017 8:43 AM CDT Pulse 84 02/22/2017 8:43 AM CDT Temperature - - Respiratory Rate 20 02/22/2017 8:43 AM CDT Oxygen Saturation - - Inhaled Oxygen Concentration - - Weight 116.1 kg (256 lb) 02/22/2017 8:43 AM CDT Height 180.3 cm (5' 11 ) 02/22/2017 8:43 AM CDT Body Mass Index 35.7 02/22/2017 8:43 AM CDT documented in this encounter Progress Notes * Epi Lake MD - 02/22/2017 8:15 AM CDT [facility] FOLLOW UP 02/22/2017 Mason Keys is a 66 y.o. male who presents for follow up of atrial fibrillation. This is a patient with previous treatment with anti rhythmic treatment with sotalol. When I saw the patient last inJ2015 he had lapsed back into atrial fib which was asymptomatic. He was transitioned back tostandard beta-fe treatment for rate control and continued on systemic anticoagulation. He therefore will be in chronic atrial fib. He returns to the office today without any cardiovascular complaints. His principal health problem that he has had for the past year is a diffuse rash that he has had on his arms legs and trunk. He is seeing a epic cadence specialists at [facility] who did a biopsy and he is expecting those results and a follow-up appointment in the near future. REVIEW OF SYSTEMS General ROS: negative for [...] skin, eczema, pruritus and rash HOME MEDICATIONS (Not in a hospital admission) LABS AND OTHER DIAGNOSTIC TESTS No results found for: CHOL No results found for: HDL No results found for: LDLCALC No results found for: TRIG No results found for: CHOLHDL No results found for: WBC, HGB, HCT, MCV, PLT No lab exists for component: LABALBU PHYSICAL EXAM Vitals: 02/22/17 0843 BP: 124/70 Pulse: 84 Resp: 20 Physical Examination: General appearance - alert, well [...] retractions or cyanosis Heart - normal rate, regular rhythm, normal S1, S2, no murmurs, rubs, [...] visit: Chronic atrial fibrillation (CMS/HCC) PLAN/RECOMMENDATIONS Continue rate control and anticoagulation strategy As he has been quite stable will see him annually Epi Lake MD documented in this encounter Plan of Treatment Not on file documented as of this encounter Visit Diagnoses Diagnosis Chronic atrial fibrillation (HCC)- Primary Atrial fibrillation documented in this encounter Discontinued Medications Medication Sig Discontinue Reason Start Date End Da te triamterene-hydroCHL OROthiazide (MAXZIDE,DYAZIDE) 37.5-25 mg per capsule take 1 capsule by oral route every day Discontinued by another clinician 03/30/2012 02/22/2017 fluticasone-salmeter ol (ADVAIR DISKUS) 250-50 mcg/dose diskus inhaler inhale 1 puff by inhalation route 2 times every day in the morning and evening approximately 12 hours apart Discontinued by another clinician 03/30/2012 02/22/2017 documented as of this encounter Historical Medications * This list may reflect changes made after this encounter. metFORMIN (GLUCOPHAGE) 500 mg tablet Take 500 mg by mouth 2 (two) times a day with meals. 2017 cyanocobalamin, vitamin B-12, 500 mcg lozenge Take by mouth. 03/27/2024 ferrous fumarate 325 mg (106 mg iron) tablet Take 2 tablets by mouth daily. 2017 albuterol HFA (PROVENTIL HFA,VENTOLIN HFA) 90 mcg/actuation inhaler Inhale 2 puffs every 6 (six) hours as needed for wheezing. 10/24/2017 lisinopril-hydroC HLOROthiazide (PRINZIDE,ZESTORE TIC) 10-12.5 mg per tabletIndications :hypertension Take 1 tablet by mouth daily. 02/09/2017 10/24/2017 doxepin (SINEquan) 25 mg capsule TAKE 1 CAPSULE TWICE A DAY 01/20/2017 2017 cetirizine (ZyrTEC) 10 mg tablet TAKE 1 TABLET BY MOUTH TWICE A DAY 12/09/2016 10/24/2017 budesonide-formot sonali (SYMBICORT) 80-4.5 mcg/actuation inhaler Inhale 1 puff 2 (two) times a day. 2017 added in this encounter Care Teams Education Counselor Relationship Specialty Start Date End Date Briana Medeiros MD [address] [place] [address] PCP - General 07/06/12 03/24/22 documented as of this encounter
--- OUTSIDE RECORDS SUMMARY | 2024-05-24 23:25 | XMS_ITS | Encounter Summary ---
Author Organization [facility] Healthcare Address [address] [place] [address] Care Team Providers Care Sas Programmer Analyst Name Role Phone Briana Medeiros MD Primary Care Provider [phone] Encounter Details Date Type Department Care Team (Latest Contact Info) Description 09/24/2017 11:09 AM CDT - 09/24/2017 11:53 AM CDT Hospital Encounter [facility] - Imaging [address] [place] [address] Александр Espino Jr., MD [address] [facility] [address] [place], [place] [id number] Discharge Disposition: Discharge to home or self care Social History Tobacco Use Types Packs/Day Years Used Date Smoking Tobacco: Never Assessed Alcohol Use Standard Drinks/Week Comments No 0 (1 standard drink = 0.6 oz pur e alcohol) Sex and Gender Information Value Date Recorded Sex Assigned at Not on file 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 10/24/2017 amLODIPine (NORVASC) 5 mg tablet take 1 tablet (5MG) by oral route every day 0 03/30/2012 10/24/2017 aspirin (ASPIRIN LOW DOSE) 81 mg tablet take 1 Tablet (81MG) by oral route every day 0 03/30/2012 2017 atorvastatin (LIPITOR) 20 mg tablet take 1 tablet by oral route every day 0 0 11/13/2015 10/24/2017 budesonide-formot sonali (SYMBICORT) 80-4.5 mcg/actuation inhaler Inhale 1 puff 2 (two) times a day. 2017 cetirizine (ZyrTEC) 10 mg tablet TAKE 1 TABLET BY MOUTH TWICE A DAY 12/09/2016 10/24/2017 cyanocobalamin, vitamin B-12, 500 mcg lozenge Take by mouth. 03/27/[address] (VOLTAREN) 75 mg EC tablet take 2 Tablet (150MG) by oral route every day 0 03/30/2012 2017 docusate (COLACE) liquid 50 mg/5 mLIndications:con stipation Take 100 mg by mouth. 09/20/2017 06/26/2019 doxepin (SINEquan) 25 mg capsule TAKE 1 CAPSULE TWICE A DAY 01/20/2017 2017 ferrous fumarate 325 mg (106 mg iron) tablet Take 2 tablets by mouth daily. 2017 furosemide (LASIX) 20 mg tablet take 1 tablet by oral route every day 0 0 01/18/2013 2017 lisinopril-hydroC HLOROthiazide (PRINZIDE,ZESTORE TIC) 10-12.5 mg per tabletIndications :hypertension Take 1 tablet by mouth daily. 02/09/2017 10/24/2017 mesalamine (LIALDA) 1.2 gram EC tablet take 3 Tablet by oral route every day with a meal 0 03/30/2012 10/24/2017 metFORMIN (GLUCOPHAGE) 500 mg tablet Take 500 mg by mouth 2 (two) times a day with meals. [address] (PROTONIX) 40 mg EC tablet take 1 tablet by oral route every day 0 0 11/13/2015 2017 potassium chloride ER (potassium chloride ER) 10 mEq CR tablet TAKE ONE TABLET BY MOUTH ONCE DAILY WITH FOOD 30 0 04/26/2012 2017 rivaroxaban (XARELTO) tablet take 1 tablet (20MG) by oral route every day with the evening meal 0 11/16/2012 10/24/2017 documented as of this encounter Discharge Disposition Disposition Code Departure Means Destination Discharge to home or self care documented in this encounter Plan of Treatment Not on file documented as of this encounter Procedures Procedure Name Priority Date/Time Associated Diagnosis Comments XR CHEST 1 VIEW IP Routine 09/24/2017 11:10 AM CDT documented in this encounter Results * XR Chest 1 Vw (09/24/2017 11:10 AM CDT) Anatomical Region Laterality Modality Body, Chest N/A Computed Radiogr aphy Impressions 09/24/2017 11:33 AM CDT 1. ??Improving left-sided airspace disease with persistent more dense consolidation in the retrocardiac region. 2. ??Decreased small left pleural effusion. 3. ??Unchanged diffuse right-sided airspace disease. Electronically signed by: FAISAL WILKINSON MD Narrative 09/24/2017 11:33 AM CDT CHEST ONE VIEW HISTORY: PNEUMONIA, UNRESOLVED. COMPARISON: 09/22/2017 FINDINGS: Tracheostomy cannula remains in expected position. ??Small to moderate left pleural effusion persists. ??Left-sided hazy airspace opacities in the mid upper lung zone are improving. ??Retrocardiac consolidation persists with perhaps some mild improved aeration. ??Mild diffuse right interstitial opacities persist. ??No pneumothorax. ??Unchanged regional skeleton. Procedure Note Faisal Wilkinson MD - 09/24/2017 CHEST ONE VIEW HISTORY: [...] right-sided airspace disease. Electronically signed by: FAISAL WILKINSON MD Александр Espino Jr., MD IMG XR PROCEDURES Final Result documented in this encounter Visit Diagnoses Not on filedocumented in this encounter Care Teams Sas Programmer Analyst Relationship Specialty Start Date End Date Briana Medeiros MD [address] [place] [address] PCP - General 07/06/12 03/24/22 documented as of this encounter
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
--- OUTSIDE RECORDS SUMMARY | 2024-05-24 23:25 | XMS_ITS | Encounter Summary ---
Author Organization [facility] Healthcare Address [address] [place] [address] Care Team Providers Care Grommet Machine Operator Name Role Phone Briana Medeiros MD Primary Care Provider [phone] Encounter Details Date Type Department Care Team (Latest Contact Info) Description 10/16/2017 7:39 AM CDT - 10/16/2017 11:59 PM CDT Hospital Encounter [facility] - Imaging [address] [place] [address] Александр Espino Jr., MD [address] 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 Electronically signed by: Feliciano Kraus M.D. Александр Espino Jr., MD IMG XR PROCEDURES Final Result documented in this encounter Visit Diagnoses Not on filedocumented in this encounter Care Teams Grommet Machine Operator Relationship Specialty Start Date End Date Briana Medeiros MD [address] [place] [address] PCP - General 07/06/12 03/24/22 documented as of this encounter
--- OUTSIDE RECORDS SUMMARY | 2024-05-24 23:25 | XMS_ITS | Encounter Summary ---
Author Organization [facility] Healthcare Address [address] [place] [address] Care Team Providers Care Rotating Equipment Engineer Name Role Phone Briana Medeiros MD Primary Care Provider Encounter Details Date Type Department Care Team (Latest Contact Info) Description 09/22/2017 8:06 AM CDT - 09/22/2017 11:59 PM CDT Hospital Encounter [facility] - Imaging [address] [place] [address] Discharge Disposition: Discharge to home or self care Social History Tobacco Use Types Packs/Day Years Used Date Smoking Tobacco: Never Assessed Alcohol Use Standard Drinks/Week Comments No 0 (1 standard drink = 0.6 oz pur e alcohol) Sex and Gender Information Value Date Recorded Sex Assigned at Not on file 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 Electronically signed by: Bruce Mcclain M.D. Александр Espino Jr., MD IMG XR PROCEDURES Final Result documented in this encounter Visit Diagnoses Not on filedocumented in this encounter Care Teams Rotating Equipment Engineer Relationship Specialty Start Date End Date Briana Medeiros MD [address] [place] [address] PCP - General 07/06/12 03/24/22 documented as of this encounter
--- OUTSIDE RECORDS SUMMARY | 2024-05-24 23:25 | XMS_ITS | Encounter Summary ---
Author Organization [facility] Healthcare Address [address] [place] [address] Care Team Providers Care Nocturnist Physician Name Role Phone Briana Medeiros MD Primary Care Provider [phone] Encounter Details Date Type Department Care Team (Latest Contact Info) Description 10/11/2017 9:59 AM CDT - 10/11/2017 11:59 PM CDT Hospital Encounter [facility] - Imaging [address] [place] [address] Sudeep Choi MD [address] [facility] [address] [place] [address] Discharge Disposition: Discharge to home or self care Social History Tobacco Use Types Packs/Day Years Used Date Smoking Tobacco: Never Assessed Alcohol Use Standard Drinks/Week Comments No 0 (1 standard drink = 0.6 oz pur e alcohol) Sex and Gender Information Value Date Recorded Sex Assigned at Not on file 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 Electronically signed by: Jeanmarie uF M.D. us Sudeep Choi MD IMG XR PROCEDURES Final Res ult documented in this encounter Visit Diagnoses Not on filedocumented in this encounter Care Teams Nocturnist Physician Relationship Specialty Start Date End Date Briana Medeiros MD [address] [place] [address] PCP - General 07/06/12 03/24/22 documented as of this encounter
--- OUTSIDE RECORDS SUMMARY | 2024-05-24 23:25 | XMS_ITS | Encounter Summary ---
Author Organization [facility] Address [address] [facility] [address] [place] [address] Care Team Providers Care Measurement And Sensing Technician Name Role Phone Briana Medeiros MD Primary Care Provider [phone] Encounter Details Date Type Department Care Team (Late st Contact Info) Description 07/04/2017 Telephone [facility] [address] [address] Epi [place] MD [address] [facility] [address] [address] Social History Tobacco Use Types Packs/Day Years Used Date Smoking Tobacco: Never Assessed Alcohol Use Standard Drinks/Week Comments No 0 (1 standard drink = 0.6 oz pur e alcohol) Sex and Gender Information Value Date Recorded Sex Assigned at Not on file 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 E FARM AGENT TEAM MEMBER * Telephone Encounter - Jazmin Garcia - 07/04/2017 11:55 AM CST Pharmacy called about metoprolol er 100 mg. The pharmacy only has 200 mg in stock. They would like to know if patient can that have filled and cut pill in 1/2 each day. Please call to discuss. [phone] E FARM AGENT TEAM MEMBER documented in this encounter Plan of Treatment Not on file documented as of this encounter Visit Diagnoses Not on filedocumented in this encounter Care Teams Measurement And Sensing Technician Relationship Specialty Start Date End Date Briana Medeiros MD [address] [place] [address] PCP - General 07/06/12 03/24/22 documented as of this encounter
--- OUTSIDE RECORDS SUMMARY | 2024-05-24 23:25 | XMS_ITS | Encounter Summary ---
Author Organization [facility] Healthcare Address [address] [place] [address] Care Team Providers Care Pipe Fitter Marine Name Role Phone Briana Medeiros MD Primary Care Provider [phone] Encounter Details Date Type Department Care Team (Latest Contact Info) Description 10/08/2017 9:14 AM CDT - 10/08/2017 11:59 PM CDT Hospital Encounter [facility] - Imaging [address] [place] [address] Discharge Disposition: Discharge to home or self care Social History Tobacco Use Types Packs/Day Years Used Date Smoking Tobacco: Never Assessed Alcohol Use Standard Drinks/Week Comments No 0 (1 standard drink = 0.6 oz pur e alcohol) Sex and Gender Information Value Date Recorded Sex Assigned at Not on file 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 Electronically signed by: MAX BATISTA Narrative 10/08/2017 10:29 AM CDT Portable chest x-ray [...] a small left pleural effusion. Procedure Note Max Batista MD - 10/08/2017 Portable chest x-ray [...] left lower lobe consolidation. Electronically signed by: MAX BATISTA Александр Espino Jr., MD IMG XR PROCEDURES Final Result documented in this encounter Visit Diagnoses Not on filedocumented in this encounter Care Teams Pipe Fitter Marine Relationship Specialty Start Date End Date Briana Medeiros MD [address] [place] [address] PCP - General 07/06/12 03/24/22 documented as of this encounter
--- OUTSIDE RECORDS SUMMARY | 2024-05-24 23:25 | XMS_ITS | Encounter Summary ---
Author Organization [facility] Healthcare Address [address] [place] [address] Care Team Providers Care Contract Graphic Designer Name Role Phone Briana Medeiros MD Primary Care Provider [phone] Encounter Details Date Type Department Care Team (Latest Contact Info) Description 09/19/2017 4:45 PM CDT - 09/19/2017 11:59 PM CDT Hospital Encounter [facility] - Imaging [address] [place] [address] Александр Espino Jr., MD [address] [facility] [address] [place], [place] [id number] Discharge Disposition: Discharge to home or self care Social History Tobacco Use Types Packs/Day Years Used Date Smoking Tobacco: Never Assessed Alcohol Use Standard Drinks/Week Comments No 0 (1 standard drink = 0.6 oz pur e alcohol) Sex and Gender Information Value Date Recorded Sex Assigned at Not on file 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 ??No evidence of bowel obstruction. 2. ??Left lung base opacification. Electronically signed by: LYDIA SWAN MD [facility] 09/19/2017 5:44 PM CDT EXAM: XR ABDOMEN AP 1 VIEW ?? INDICATION: ABDOMINAL PAIN COMPARISON: None available. FINDINGS: Bilateral hip arthroplasties noted. ??There is opacification of the left lung base. ??Catheter tubing overlies the left upper quadrant. ??There is a nonspecific bowel gas pattern without evidence of obstruction. ??Apparent spinal fusion device projects at L2-L3. Procedure Note Lydia Swan MD - 09/19/2017 EXAM: XR ABDOMEN AP [...] Left lung base opacification. Electronically signed by: LYDIA SWAN MD Александр Espino Jr., MD IM XR PROCEDURES Final Result * XR Chest [...] place. Electronically signed by: Jeanmarie Fu M.D. Александр Espino Jr., MD IMG XR PROCEDURES Final Result documented in this encounter Visit Diagnoses Not on filedocumented in this encounter Care Teams Contract Graphic Designer Relationship Specialty Start Date End Date Briana Medeiros MD [address] [place] [address] PCP - General 07/06/12 03/24/22 documented as of this encounter
--- OUTSIDE RECORDS SUMMARY | 2024-05-24 23:25 | XMS_ITS | Encounter Summary ---
Author Organization [facility] Healthcare Address [address] [place] [address] Care Team Providers Care Youth Court Judge Name Role Phone Briana Medeiros MD Primary Care Provider [phone] Encounter Details Date Type Department Care Team (Latest Contact Info) Description 09/28/2017 6:45 AM CDT - 09/28/2017 11:59 PM CDT Hospital Encounter [facility] - Imaging [address] [place] [address] Discharge Disposition: Discharge to home or self care Social History Tobacco Use Types Packs/Day Years Used Date Smoking Tobacco: Never Assessed Alcohol Use Standard Drinks/Week Comments No 0 (1 standard drink = 0.6 oz pur e alcohol) Sex and Gender Information Value Date Recorded Sex Assigned at Not on file 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 ??Otherwise no significant interval change. Electronically signed by: FAISAL WILKINSON MD Narrative 09/28/2017 9:08 AM CDT CHEST ONE VIEW HISTORY: ACUTE RESP ILLNESS, >40 YEARS OLD. COMPARISON: 09/26/2017 FINDINGS: Tracheostomy cannula remains in place. ??Improving retrocardiac consolidation. ??Persistent small left pleural effusion other diffuse bilateral interstitial and alveolar opacities persist. ??Stable heart and mediastinum. ??Unchanged regional skeleton. Procedure Note Faisal Wilkinson MD - 09/28/2017 CHEST ONE VIEW HISTORY: ACUTE RESP ILLNESS, >40 YEARS OLD. COMPARISON: 09/26/2017 FINDINGS: Tracheostomy cannula remains in place. Improving retrocardiac consolidation. Persistent small left pleural effusion other diffuse bilateral interstitial and alveolar opacities persist. Stable heart and mediastinum. Unchanged regional skeleton. IMPRESSION: Improved retrocardiac airspace disease. Otherwise no significant interval change. Electronically signed by: FAISAL WILKINSON MD Александр Espino Jr., MD IMG XR PROCEDURES Final Result documented in this encounter Visit Diagnoses Not on filedocumented in this encounter Care Teams Youth Court Judge Relationship Specialty Start Date End Date Briana Medeiros MD [address] [place] [address] PCP - General 07/06/12 03/24/22 documented as of this encounter
--- OUTSIDE RECORDS SUMMARY | 2024-05-24 23:25 | XMS_ITS | Encounter Summary ---
Author Organization [facility] Healthcare Address [address] [place] [address] Care Team Providers Care Tool Chaser Name Role Phone Briana Medeiros MD Primary Care Provider [phone] Encounter Details Date Type Department Care Team (Latest Contact Info) Description 09/26/2017 8:00 AM CDT - 09/26/2017 11:59 PM CDT Hospital Encounter [facility] - Imaging [address] [place] [address] Discharge Disposition: Discharge to home or self care Social History Tobacco Use Types Packs/Day Years Used Date Smoking Tobacco: Never Assessed Alcohol Use Standard Drinks/Week Comments No 0 (1 standard drink = 0.6 oz pur e alcohol) Sex and Gender Information Value Date Recorded Sex Assigned at Not on file 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 Electronically signed by: Jeanmarie Fu M.D. Александр Espino Jr., MD IMG XR PROCEDURES Final Result documented in this encounter Visit Diagnoses Not on filedocumented in this encounter Care Teams Tool Chaser Relationship Specialty Start Date End Date Briana Medeiros MD [address] [place] [address] PCP - General 07/06/12 03/24/22 documented as of this encounter
--- OUTSIDE RECORDS SUMMARY | 2024-05-24 23:25 | XMS_ITS | Encounter Summary ---
Author Organization [facility] Healthcare Address [address] [place] [address] Care Team Providers Care Skiver Machine Name Role Phone Briana Medeiros MD Primary Care Provider [phone] Encounter Details Date Type Department Care Team (Latest Contact Info) Description 10/22/2017 10:11 AM CDT - 10/22/2017 11:59 PM CDT Hospital Encounter [facility] - Imaging [address] [place] [address] Александр Espino Jr., MD [address] [facility] [address] [place], [place] [id number] Discharge Disposition: Discharge to home or self care Social History Tobacco Use Types Packs/Day Years Used Date Smoking Tobacco: Never Assessed Alcohol Use Standard Drinks/Week Comments No 0 (1 standard drink = 0.6 oz pur e alcohol) Sex and Gender Information Value Date Recorded Sex Assigned at Not on file 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 ??Worsening left basilar pleural-parenchymal opacities likely combination of pleural fluid and airspace disease. 2. ??Persistent interstitial edema. Electronically signed by: FAISAL WILKINSON MD Narrative 10/22/2017 10:57 AM CDT CHEST ONE VIEW HISTORY: SHORTNESS OF BREATH PRODUCED BY EXERTION OR STRESS. COMPARISON: 10/19/2017 FINDINGS: Increasing left pleural effusion and left mid and lower lung zone opacities. ??Diffuse interstitial edema persists. ??Cardiac silhouette remains enlarged. ??There is no pneumothorax. ??Gastrostomy tube overlies the upper abdomen. ??Regional skeleton is unchanged. Procedure Note Faisal Wilkinson MD - 10/22/2017 CHEST ONE VIEW HISTORY: [...] Persistent interstitial edema. Electronically signed by: FAISAL WILKINSON MD Александр Espino Jr., MD IMG XR PROCEDURES Final Result documented in this encounter Visit Diagnoses Not on filedocumented in this encounter Care Teams Skiver Machine Relationship Specialty Start Date End Date Briana Medeiros MD [address] [place] [address] PCP - General 07/06/12 03/24/22 documented as of this encounter
--- OUTSIDE RECORDS SUMMARY | 2024-05-24 23:25 | XMS_ITS | Encounter Summary ---
Author Organization [facility] Healthcare Address [address] [place] [address] Care Team Providers Care Home Visitor Home Base Head Start Name Role Phone Briana Medeiros MD Primary Care Provider [phone] Encounter Details Date Type Department Care Team (Latest Contact Info) Description 10/19/2017 8:01 AM CDT - 10/19/2017 11:59 PM CDT Hospital Encounter [facility] - Imaging [address] [place] [address] Discharge Disposition: Discharge to home or self care Social History Tobacco Use Types Packs/Day Years Used Date Smoking Tobacco: Never Assessed Alcohol Use Standard Drinks/Week Comments No 0 (1 standard drink = 0.6 oz pur e alcohol) Sex and Gender Information Value Date Recorded Sex Assigned at Not on file 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 Electronically signed by: Dewey E. Scales, M.D. us Александр Espino Jr., MD IMG XR PROCEDURES Final Result documented in this encounter Visit Diagnoses Not on filedocumented in this encounter Care Teams Home Visitor Home Base Head Start Relationship Specialty Start Date End Date Briana Medeiros MD [address] [place] [address] PCP - General 07/06/12 03/24/22 documented as of this encounter
--- OUTSIDE RECORDS SUMMARY | 2024-05-24 23:25 | XMS_ITS | Encounter Summary ---
Author Organization [facility] Healthcare Address [address] [place] [address] Care Team Providers Care Software Reliability Engineer Name Role Phone Briana Medeiros MD Primary Care Provider [phone] Encounter Details Date Type Department Care Team (Latest Contact Info) Description 10/13/2017 7:34 AM CDT - 10/13/2017 11:59 PM CDT Hospital Encounter [facility] - Imaging [address] [place] [address] Discharge Disposition: Discharge to home or self care Social History Tobacco Use Types Packs/Day Years Used Date Smoking Tobacco: Never Assessed Alcohol Use Standard Drinks/Week Comments No 0 (1 standard drink = 0.6 oz pur e alcohol) Sex and Gender Information Value Date Recorded Sex Assigned at Not on file 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 Electronically signed by: Jeanmarie Fu M.D. Александр Espino Jr., MD IMG XR PROCEDURES Final Result documented in this encounter Visit Diagnoses Not on filedocumented in this encounter Care Teams Software Reliability Engineer Relationship Specialty Start Date End Date Briana Medeiros MD [address] [place] [address] PCP - General 07/06/12 03/24/22 documented as of this encounter
--- OUTSIDE RECORDS SUMMARY | 2024-05-24 23:30 | XMS_ITS | Clinical Summary ---
Author Organization [facility] Address [address] [place] [address] Care Team Providers Care Landscape Foreman Name Role Phone Cleo Funk DO Primary Care Provider [phone] Source Comments [facility],non-owned Affiliates and Associated Physician Practices is amultiple site organization consisting of ambulatory clinics and hospital sitesin [place], [place], [place] and [place]. This disclosure is being madepursuant to the Care Everywhere program and may not contain all information available regarding this patient. Last updated 18.[facility] [employer] Allergies Active Allergy Reactions Criticality Noted Date Comments Peppers GI Discomfort 10/20/2021 Green and red peppers Levofloxacin Eye Itching 04/24/2019 red around the eyes , puffy, itchy Penicillins Skin Reactions,Swelling Medium 07/14/2017 Scopolamine Other,INSTRUMENT WORKER Dysfunction 02/07/2019 delirium Tobramycin Eye Itching 10/23/2019 red around the eyes, puffy, itchy Medications * Be aware that medications may not be up to date on this document. Alwaysverify current medications with the patient. Medication Sig Dispensed Refills Start Date End Date Status acetaminophen (TYLENOL) 325 MG tabletIndications:Ot her cirrhosis of liver (HCC) Take 2 (two) tablets by mouth every 4 hours as needed Active tamsulosin (FLOMAX) 0.4 MG capsuleIndications:O ther cirrhosis of liver (HCC) Take 1 (one) capsule by mouth at bedtime 1 02/08/2018 Active roflumilast (DALIRESP) 500 MCG tablet Take 1 (one) tablet by mouth once daily Active doxycycline hyclate (VIBRAMYCIN) 100 MG capsule Take 1 (one) capsule by mouth once daily Active ferrous sulfate 325 (65 FE) MG tablet Take 1 (one) tablet by mouth daily with breakfast Active bumetanide (BUMEX) 0.5 MG tablet Take 1 (one) tablet by mouth 2 times daily Active apixaban (ELIQUIS) 5 MG tablet Take 1 (one) tablet by mouth 2 times daily Active aspirin EC (ECOTRIN) 81 MG tablet Take 1 (one) tablet by mouth once daily Active metoprolol succinate XL 24hr (TOPROL XL) 50 MG tablet Take 1 (one) tablet by mouth once daily Active Cetirizine HCl (ZYRTEC PO) Take 10 mg by mouth daily with breakfast Active baclofen (LIORESAL) 10 MG tablet Take 1 (one) tablet by mouth at bedtime May cause drowsiness. Active BREZTRI AEROSPHERE 160-9-4.8 MCG/ACT AERO Inhale 2 (two) puffs by mouth 2 times daily 08/03/2021 Active Pyridoxine HCl (VITAMIN B-6 PO) Take 100 mg by mouth once daily Active magnesium oxide (Mag-Ox) 400 MG tablet Take 1 (one) tablet by mouth 2 times daily Active spironolactone (Aldactone) 25 MG tablet Take 0.5 (one-half) tablet by mouth once daily 01/27/2021 Active Oxygen 1 L Active vitamin D3 (Cholecalciferol) 25 MCG (1000 UNITS) tablet Take 1 (one) tablet by mouth once daily Active albuterol HFA (Proventil; Ventolin; Proair) 108 (90 Base) MCG/ACT inhaler Inhale 2 (two) puffs by mouth as needed for Shortness of Breath Active folic acid 400 MCG tablet Take 1 (one) tablet by mouth once daily Active fluticasone propionate (Flonase) 50 MCG/ACT nasal spray [place] 1 (one) spray into each nostril once daily Active omeprazole (PriLOSEC) 40 MG capsule Take 1 (one) capsule by mouth daily before breakfast Active albuterol-ipratropiu m (Duo-Neb) 0.5-2.5 (3) MG/3ML nebulizer solution Inhale 3 mL by mouth 4 times daily Active Other (Patient uses variety of topicals...Eucerin, triamcinolone, hydrocortisone) Active hydrOXYzine HCl (Atarax) 25 MG tablet Take 1 (one) tablet by mouth 2 times daily for 30 days 11/02/2023 Active levalbuterol (Xopenex) 1.25 MG/0.5ML nebulizer solution Inhale 0.5 mL by mouth every 6 hours 11/02/2023 Active venlafaxine (Effexor) 37.5 MG tablet Take 1 (one) tablet by mouth once daily for 30 days 11/03/2023 Active lactobacillus (Lactinex) PACK granules Take 1 (one) packet by mouth 3 times daily 11/02/2023 Active losartan (Cozaar) 25 MG tabletIndications:Hy pertension Take 1 (one) tablet by mouth once daily Reasons: High Blood Pressure Disorder 11/03/2023 Active senna (Senokot) 8.6 MG tablet Take 1 (one) tablet by mouth 2 times daily as needed for Constipation 11/02/2023 Active rifAXIMin (Xifaxan) 550 MG tablet Take 1 (one) tablet by mouth 2 times daily 11/02/2023 Active doxycycline monohydrate 100 MG capsule Take 1 (one) capsule by mouth once daily 11/03/2023 Active Hospital, Clinic, or Other Facility Administered Medication Ordered Dose Route Frequency Start Date End Date Status lidocaine (Xylocaine) 1 % injectionIndications: Primary osteoarthritis of left knee INFILTRATION ONCE 05/15/2024 05/15/2024 Ended triamcinolone acetonide (Kenalog-40) injection 80 mgIndications:Primary osteoarthritis of left knee 80 mg IX ONCE 05/15/2024 05/15/2024 Ended Active Problems Problem Noted Date Diagnosed Date Sepsis due to other etiology 10/12/2023 Benign prostatic hyperplasia without lower urinary tract symptoms 06/06/2019 Infection of right prosthetic hip joint 02/03/20 19 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 08/17/2018 Overview (08/31/2020): US 05/2018, no lesions EGD 2017, no varices 08/26/20 Fibroscan not technically possible. Hypoxemia 09/06/2017 Pleural effusion on left 08/29/2017 Methicillin resistant Staphylococcus aureus infe ction 08/29/2017 Extradural and subdural abscess, unspecified Acute respiratory failure with hypoxia 8 Discitis of lumbar region 08/29/2017 Acute kidney failure 08/29/2017 Sepsis 08/27/2017 Severe sepsis without septic shock (CODE) 2017 Acute embolism and thrombosi s of deep vein of lower extremity 07/25/2017 Bacteremia 07/25/2017 Vitamin D deficiency 07/08/2017 Local infection of skin and subcutaneous tissue 04/18/2017 Unspecified staphylococcus a s the cause of diseases classified elsewhere 04/18/2017 Chronic atrial fibrillation 04/06/2017 Other specified anemias 04/06/2017 Venous insufficiency (chronic) (peripheral) 02/05 Other specified dermatitis 02/25/2017 Impetiginization of other dermatoses 02/25/2017 Localized edema 02/25/2017 Venous stasis dermatitis of both lower extremiti es 02/25/2017 Resolved Problems Problem Noted Date Diagnosed Date Resolved Date Other ascites 07/25/2017 08/17/2018 Other cirrhosis of liver 07/25/2017 Encounters Date Type Department Care Team Description 05/15/2024 1:15 PM ENGINEERING OFFICER Office Visit [facility] - Orthopedic Surgery [address] [place] [phone] Larry Alexander MD Primary osteoarthritis of left knee (Primary Dx) 05/15/2024 12:59 PM ENGINEERING OFFICER - 05/15/2024 11:59 PM ENGINEERING OFFICER Hospital Encounter [facility] - Orthopedics [address] [place] [address], [address] [place] [address] Larry Alexander MD Discharge Disposition: Home or Self Care 05/15/2024 Travel 05/15/2024 Orders Only [facility] - Orthopedic Surgery [address] [place] [phone] Larry Alexander MD Left knee pain, unspecified chronicity 04/02/2024 11:00 AM CDT - 04/02/2024 11:59 PM CDT Hospital Encounter [facility] [id number] [place] [address] Twin Miller MD Discharge Disposition: Home or Self Care 04/02/2024 10:22 AM CDT - 04/02/2024 10:59 AM CDT Hospital Encounter [facility] [address] [place] [phone] Twin Miller MD Discharge Disposition: Home or Self Care 03/15/2024 Travel 03/05/2024 Travel from Last 3 Months Immunizations Name Administration Dates Next Due Covid Pfizer primary monoval ent 12+ yr 0.3mL Purple cap 03/15/2021,07/16/2020,06/25/2020 Family History Medical History Relation Name Comments Cirrhosis Father CAD (Coronary Artery Disease) Mother age 65 CVA Neg Hx Cancer - Breast Neg Hx Cancer - Other Neg Hx Cancer - Skin, Melanoma Neg Hx Cancer - Skin, Non Melanoma Neg Hx Eczema Neg Hx Hemophilia Neg Hx Psoriasis Neg Hx Relation Name Status Comments Father Mother Social History Tobacco Use Types Packs/Day Years Used Date Smoking Tobacco: Former Cigarettes Q uit: 06/06/1981 Smokeless Tobacco: Never Tobacco Cessation:Counseling Given: No Alcohol Use Standard Drinks/Week Comments No 0 (1 standard drink = 0.6 oz pur e alcohol) AUDIT-C Answer Date Recorded Q1: How often do you have a drink containing alcohol? Never 10/14/2023 Q2: How many drinks containi ng alcohol do you have on a typical day when you are drinking? Patient does not drink Q3: How often do you have si x or more drinks on one occasion? Never 10/14/2023 Overall Financial Resource Strain (CARDIA) Answe r Date Recorded How hard is it for you to pa y for the very basics like food, housing, medical care, and heating? Not hard at all 10/14/2023 PHQ-2 Answer Date Recorded Patient Health Questionnaire-2 Score 1 05/15/2024 [facility] [place] of Occupat ional Health - Occupational Stress Questionnaire Answer Date Recorded Do you feel stress - tense, restless, nervous, or anxious, or unable to sleep at night because your mind is troubled all the time - these days? Only a little 10/14/2023 Hunger Vital Sign Answer Date Recorded Within the past 12 months, y ou worried that your food would run out before you got the money to buy more. Never true 10/14/19 24 Within the past 12 months, t he food you bought just didn't last and you didn't have money to get more. Never true 10/14/2023 PRAPARE - Transportation Answer Date Re corded In the past 12 months, has l ack of transportation kept you from medical appointments or from getting medications? No 10/04 In the past 12 months, has l ack of transportation kept you from meetings, work, or from getting things needed for daily living? No 10/14/2023 Housing Stability Vital Sign Answer Esteban e Recorded In the last 12 months, was t here a time when you were not able to pay the mortgage or rent on time? No 10/14/2023 In the last 12 months, how many places have you lived? 1 10/14/2023 In the last 12 months, was t here a time when you did not have a steady place to sleep or slept in a chcf (including now)? No 10/14/2023 Sex and Gender Information Value Date Recorded Sex Assigned at Not on file Gender Identity Not on file Sexual Orientation Not on file Last Filed Vital Signs Vital Sign Reading Time Taken Comments Blood Pressure 126/55 11/03/2023 8:13 AM CDT Pulse 81 11/03/2023 9:27 AM CDT Temperature 36.4 ??C (97.6 ??F) 11/03/2023 8:13 AM CD T Respiratory Rate 18 11/03/2023 9:27 AM CDT Oxygen Saturation 100% 11/03/2023 9:27 AM CDT Inhaled Oxygen Concentration 21% 10/25/2023 1 1:35 PM CDT Weight 111.1 kg (245 lb) 10/14/2023 6:43 AM CDT Height 180.3 cm (5' 10.98 ) 10/12/2023 5:07 AM C DT Body Mass Index 34.19 10/12/2023 5:07 AM CDT Plan of Treatment Upcoming Encounters Date Type Department Care Team (Late st Contact Info) Description 07/09/2024 12:30 PM ENGINEERING OFFICER Office Visit [facility] - GI [address] [place] [address] Twin Miller MD [address] [place] [address] [place] [address] 09/19/2024 2:00 PM CDT Office Visit [facility] - Orthopedic Surgery [address] [place] [address] Larry Alexander MD [address] [facility] [address] [place] [address] Health Maintenance Due Date Last Done Comments COLOGUARD (AGES 45-75) - COLON CA SCREENING 1948 COLON MONITORING 1948 COLONOSCOPY - COLON CA SCREENING 1948 CT COLONOGRAPHY - COLON CA SCREENING 1950 Colorectal Cancer Screening 1948 FIT - COLON CA SCREENING 1948 FLEX SIG - COLON CA SCREENING 1948 PNEUMOCOCCAL VACCINE 65+ (1 of 2 - PCV) 1954 DTAP/TDAP/TD VACCINES (1 - Tdap) 11/11/1967 ZOSTER VACCINE (1 of 2) 1998 HEPATITIS B VACCINE (1 of 3 - Risk 3-dose series) 2008 MEDICARE AWV ? CALENDAR YEAR 2023 Respiratory Syncytial Virus (RSV) Vaccine Pt: or over 60 yrs (1 - 1-dose 75+ series) 11/11/2023 COVID-19 VACCINE ( - season) 2024 06/13/2023, 07/21/2022, 03/15/2021, Additional history exists INFLUENZA VACCINE (#1) 2024 , 03/20/2022, 03/15/2021, Additional history exists HEPATITIS C SCREENING Completed 07/14/2017 DEPRESSION SCREENING Completed 05/15/2024 HIB VACCINE Aged Out No longer eligi ble based on patient's age to complete this topic HPV VACCINE Aged Out No longer eligi ble based on patient's age to complete this topic MENINGOCOCCAL VACCINE Aged Out No jocelyne nena eligible based on patient's age to complete this topic Goals Goal Patient Goal Type Associated Problems Recent Progress Patient-Stated? Author Medication Management General On track( 023 12:04 PM CDT) No Monty Gentile, RN Note: Expected end date: Interventions: Take all medications as prescribed Let your doctor know right away about any changes in your medications Make sure to request a refill of your medication at least one week prior to your last dose Mobility General On track( 023 12:04 PM CDT) Nita Crowder RN Note: Expected end date: 08/05/2019 The goal is to maintain or improve your mobility at the optimum level for you. Interventions: Medical Devices Implanted Type Area Title One Kindergarten Teacher Device Identifier Shelf Expiration Date Model / Serial / Lot Trident 10 Deg X 3 Insert 36mm Id Implanted:Qty: 1 on 02/08/2019 by Larry Alexander MD at [facility] [employer] 06/23/2021 [id number] / / [id number] Description:36MM POLYETHYLEN E INSERT C-Taper Cocr Lfit Head 36mm/0 Implanted:Qty: 1 on 02/08/2019 by Larry Alexander MD at [facility] [employer] 02/12/2023 06-3600 / / [id number] Description:LEFT FEMORAL HEA D 36MM Procedures Procedure Name Priority Date/Time Associated Diagnosis Comments NJ DRAIN/INJECT LARGE JOINT/BURSA Routine 05/15/2024 1:52 PM ENGINEERING OFFICER Primary osteoarthritis of left knee XR KNEE LEFT 3VW Routine 05/15/2024 1:22 PM ENGINEERING OFFICER Left knee pain, unspecified chronicity US ABDOMEN LIMITED Routine 04/02/2024 12 :11 PM CDT 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) Cirrhosis of liver without ascites, unspecified hepatic cirrhosis type (HCC) Nonalcoholic steatohepatitis (RAYGOZA) Atrial fibrillation, unspecified type (HCC) Acute gastric ulcer with hemorrhage PT-INR [facility] Routine 04/02/2024 11:08 AM CDT 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) Nonalcoholic steatohepatitis (RAYGOZA) COMPREHENSIVE METABOLIC PANEL Routine 04/02/2024 11:08 AM CDT 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) Nonalcoholic steatohepatitis (RAYGOZA) CBC W AUTO DIFFERENTIAL Routine 04/02/2024 11:08 AM CDT 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) Nonalcoholic steatohepatitis (RAYGOZA) ALPHA FETOPROTEIN BLOOD TUMOR MARKER Routine 04/02/2024 11:08 AM CDT 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) Nonalcoholic steatohepatitis (RAYGOZA) HEPATITIS C ANTIBODY Routine 07/14/2017 10:11 PM ENGINEERING OFFICER from Last 3 Months or Most Recently Relevant to Health Maintenance Results * NJ DRAIN/INJECT LARGE JOINT/BURSA (05/15/2024 1:52 PM ENGINEERING OFFICER) Narrative Larry Alexander MD - 05/15/2024 1:52 PM ENGINEERING OFFICER Larry Alexander MD ? 05/15/2024 ??4:48 PM Orthopaedic Surgery Procedure Note Mason Keys [id number] Diagnosis: Left knee pain Procedure: Injection of corticosteroid into the left knee Indications: Mason Keys is a 73 year old male who has left knee pain and arthritis. Informed consent was obtained for the procedure Risks and adverse drug reaction were discussed. A time out was performed for patient safety. Procedure Details: The patient was informed of his condition, and the potential benefits of injection of steroid. The patient was counseled as to the risks of the procedure and allergies were reviewed. The patient was understanding and agreeable. ?? The patient was placed into the appropriate position. The area was prepped with betadine and alcohol. Utilizing the peripatellar portal, the skin, subcutaneous, and pericapsular tissues were injectedwith 3 cc 1% lidocaine without epinephrine using a 21 Ga needle. The patient's left knee joint was then entered. Confirmation of location inside the joint was evidenced by aspiration of straw colored synovial fluid. 2 cc of Kenalog/3cc lidocaine was injected into the joint. The needle was removed and the needle site cleaned with alcohol and dressed with a sterile bandage. The procedure was performed under sterile conditions. ?? The patient tolerated the procedure well. Remainder of plan per note. Injection performed by: ??Resident on service ? Blood Loss: ??Minimal I was present for the entire procedure Larry Alexander MD 05/15/2024 1:52 PM Larry Alexander MD PROCEDURE/MINOR CASA GICAL ORDERABLES * XR Knee Left 3Vw (05/15/2024 1:22 PM ENGINEERING OFFICER) Anatomical Region Laterality Modality Lower Extremity Radiographic Shama ging 05/15/2024 1:51 PM ENGINEERING OFFICER Narrative 05/15/2024 1:51 PM ENGINEERING OFFICER Procedure: XR KNEE LEFT 3VW ??Exam Date: ??05/15/2024 1:23 PM ?? Location: ??[facility] Indication: M25.562: Pain in left knee Findings/impression: No old studies are available for comparison purposes. There is marked narrowing of the medial compartment. There is narrowing of the lateral compartment as well. There is also loss of joint space at the patellofemoral joint. There is spurring the femoral condyles, tibial plateau, along the condylar notch and along the patellofemoral joint. There is chondrocalcinosis. A joint effusion is present. No acute fracture is seen. Vascular calcifications are noted. > Interpreting Provider: Dg Meyers MD on 05/15/2024 1:51 PM Procedure Note Dg Meyers MD - 05/15/2024 Procedure: XR KNEE LEFT 3VW Exam Date: 05/15/2024 1:23 PM Location:[facility] Indication: M25.562: Pain in left knee Findings/impression: No old studies are available for comparison purposes. There is marked narrowing of the medial compartment. There is narrowing of the lateral compartment as well. There is also loss of joint space at the patellofemoral joint. There is spurring the femoral condyles, tibial plateau, along the condylar notch and along the patellofemoral joint.There is chondrocalcinosis. A joint effusion is present. No acute fracture is seen. Vascular calcifications are noted. > Interpreting Provider: Dg Meyers MD on 05/15/2024 1:51 PM Larry Alexander MD DIAGNOSTIC IMAGING ORDERABLES * US ABDOMEN LIMITED (04/02/2024 12:11 PM CDT) Anatomical Region Laterality Modality Abdomen Ultrasound 04/02/2024 2:47 PM CDT Impressions 04/02/2024 7:45 PM CDT IMPRESSION: Liver Visualization Score C: Severe limitations. US-1 Negative. Repeat surveillance US in 6 months. Patent hepatic vasculature. 1.Hepatic cirrhosis without discrete hepatic observations. 2.Cholelithiasis without cholecystitis. Report drafted by Ana María Banerjee MD I, Rene Hdez MD have personally reviewed and interpreted this examination/study. > Interpreting Provider: Rene Hdez MD on 04/02/2024 7:45 PM Narrative 04/02/2024 7:45 PM CDT PROCEDURE: ??US ABDOMEN LIMITED, DATE/TIME OF EXAM: ??04/02/2024 12:19 PM, LOCATION ??[facility] INDICATION: K75.81: 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) K74.60: 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) K74.60: Cirrhosis of liver without ascites, unspecified hepatic cirrhosis type (HCC) K75.81: Nonalcoholic steatohepatitis (RAYGOZA) I48.91: Atrial fibrillation, unspecified type (HCC) K25.0: Acute gastric ulcer with hemorrhage ADDITIONAL CLINICAL INFORMATION: Ordering Provider Reason For Exam: ??HCC screening Technologist Note: Additional: COMPARISON: Abdomen ultrasound 03/21/2023 FINDINGS: Liver Visualization Score: Severe limitations in liver visualization Liver Morphology: The liver is normal in echotexture and echogenicity with a smooth surface contour. Liver Observations: None. Main Portal Vein: Color Doppler evaluation demonstrates patency of the main portal vein. Hepatic Veins: Color Doppler evaluation demonstrates patency of the hepatic veins. Bile Ducts: The common bile duct was not well visualized. No intrahepatic or extrahepatic biliary dilation. Gallbladder: Gallstones are seen within the gallbladder neck without pericholecystic fluid.. Sonographic Maria's sign is negative. Ascites: No ascites is present. Spleen: The spleen measures 11.5 cm in length. Pancreas: The pancreas is obscured by overlying bowel gas. Right Kidney: The right kidney measures 10.5 cm in length. Limited views of the right kidney reveal no evidence of nephrolithiasis or hydronephrosis. ??No discrete mass identified. Procedure Note Rene Hdez MD - 04/02/2024 PROCEDURE: US ABDOMEN LIMITED, DATE/TIME OF EXAM: 04/02/2024 12:19 PM, LOCATION [facility] INDICATION: K75.81: 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) K74.60: 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) K74.60: Cirrhosis of liver without ascites, unspecified hepaticcirrhosis type (HCC) K75.81: Nonalcoholic steatohepatitis (RAYGOZA) I48.91: Atrial fibrillation, unspecified type (HCC) K25.0: Acute gastric ulcer with hemorrhage ADDITIONAL CLINICAL INFORMATION: Ordering Provider Reason For Exam: HCC screening Technologist Note: Additional: COMPARISON: Abdomen ultrasound 03/21/2023 FINDINGS: Liver Visualization Score: Severe limitations in liver visualization Liver Morphology: The liver is normal in echotexture and echogenicity with a smoothsurface contour. Liver Observations: None. Main Portal Vein: Color Doppler evaluation demonstrates patency of the main portal vein. Hepatic Veins: Color Doppler evaluation demonstrates patency of the hepatic veins. Bile Ducts: The common bile duct was not well visualized. No intrahepatic or extrahepatic biliary dilation. Gallbladder: Gallstones are seen within the gallbladder neck without pericholecystic fluid.. Sonographic Maria's sign is negative. Ascites: No ascites is present. Spleen: The spleen measures 11.5 cm in length. Pancreas: The pancreas is obscured by overlying bowel gas. Right Kidney: The right kidney measures 10.5 cm in length. Limited views of the right kidney reveal no evidence of nephrolithiasis or hydronephrosis. No discrete mass identified. IMPRESSION: Liver Visualization Score C: Severe limitations. US-1 Negative. Repeat surveillance US in 6 months. Patent hepatic vasculature. 1.Hepatic cirrhosis without discrete hepatic observations. 2.Cholelithiasis without cholecystitis. Report drafted by Ana María Banerjee MD I, Rene Hdez MD have personally reviewed and interpreted this examination/study. > Interpreting Provider: Rene Hdez MD on 04/02/2024 7:45 PM Twin Miller MD US ORDERABLES * (ABNORMAL) PT-INR [facility] (04/02/2024 11:08 AM CDT) Pathologist [facility] PT 17.9(H) 12.1 - 14.8 Seconds 04/02/2024 12:13 PM CDT [facility] INR 1.5 See Comment 04/02/2024 12:13 PM CDT [facility] Comment:The suggested therap eutic range for standard coumadin (warfarin) therapy is an INR of 2.0-3.0. For high-risk patients (Mechanical Mitral Valve Prosthesis, etc.), the suggested prophylactic therapeutic range is an INR of 2.5-3.5. Blood BLOOD SPECIMEN / Unknown Lab Venipuncture / Unknown 04/02/2024 11:08 AM CDT 04/02/2024 11:14 AM CDT Twin Miller MD LAB - COAGULAT ION ORDERABLES Performing Organization Address City/[facility]/ZIP Co de Phone Number [address] [address], [place] [phone] * ALPHA FETOPROTEIN BLOOD TUMOR MARKER (04/02/2024 11:08 AM CDT) [facility] Alpha-Fetoprote in Tumor Marker <2.0 <=8.3 ng/mL 04/02/2024 12:37 PM CDT [facility] Comment: AFP values will vary depending on testing procedure used. Results are not comparable across different methods. AFP values obtained by [facility] using an [employer] Alinity Immunoassay. Blood BLOOD SPECIMEN / Unknown Lab Venipuncture / Unknown 04/02/2024 11:08 AM CDT 04/02/2024 11:46 AM CDT Twin Miller MD LAB - CHEMISTR Y ORDERABLES Performing Organization Address City/[facility]/ZIP Co de Phone Number [address] [address], [place] [phone] * (ABNORMAL) CBC WITH DIFFERENTIAL (04/02/2024 11:08 AM CDT) [facility] Signature WBC 6.7 4.0 - 10.7 x10E9/L 04/02/2024 1:27 PM [facility] RBC Count 3.48(L) 4.30 - 5.80 x10E12/L 04/02/2024 1:27 PM [facility] Hemoglobin 10.1(L) 13.3 - 17.5 g/dL 04/02/2024 1:27 PM [facility] Hematocrit 33.6(L) 38.7 - 51.1 % 04/02/2024 1:27 PM [facility] MCV 96.6 80.0 - 98.0 fL 04/02/2024 1:27 PM [facility] MCH 29.0 26.7 - 33.6 pg 04/02/2024 1:27 PM [facility] MCHC 30.1(L) 31.7 - 36.3 g/dL 04/02/2024 1:27 PM [facility] RDW-CV 15.7(H) 11.3 - 14.8 % 04/02/2024 1:27 PM [facility] Platelet Count 120(L) 150 - 420 x10E9/L 04/02/2024 1:27 PM [facility] MPV 04/02/2024 1:27 PM [facility] Comment:Unable to report Neutrophil % 67.8 41.0 - 74.0 % 04/02/2024 1:27 PM [facility] Lymphocyte % 12.7(L) 17.0 - 47.0 % 04/02/2024 1:27 PM [facility] Monocyte % 13.0(H) 3.0 - 11.0 % 04/02/2024 1:27 PM [facility] Eosinophil % 5.7 0.0 - 7.0 % 04/02/2024 1:27 PM [facility] Basophil % 0.7 0.0 - 1.6 % 04/02/2024 1:27 PM [facility] Immature Granulocytes % 0.1 0.0 - 1.0 % 04/02/2024 1:27 PM [facility] Neutrophil Absolute 4.51 1.60 - 7.50 x10E9/L 04/02/2024 1:27 PM [facility] Lymphocyte Absolute 0.85(L) 1.00 - 4.40 x10E9/L 04/02/2024 1:27 PM [facility] Monocyte Absolute 0.87 0.15 - 1.00 x10E9/L 04/02/2024 1:27 PM [facility] Eosinophil Absolute 0.38 0.00 - 0.60 x10E9/L 04/02/2024 1:27 PM [facility] Basophil Absolute 0.05 0.00 - 0.13 x10E9/L 04/02/2024 1:27 PM [facility] Blood BLOOD SPECIMEN / Unknown Lab Venipuncture / Unknown 04/02/2024 11:08 AM CDT 04/02/2024 11:46 AM CDT Twin Miller MD LAB - HEMATOLO GY ORDERABLES [address] [address], [facility] [phone] * (ABNORMAL) COMPREHENSIVE METABOLIC PANEL (04/02/2024 11:08 AM CDT) BUN 30(H) 7 - 26 mg/dL 04/02/2024 12:13 PM [facility] Creatinine 1.87(H) 0.71 - 1.16 mg/dL 04/02/2024 12:13 PM [facility] Sodium 145 136 - 145 mmol/L 04/02/2024 12:13 PM [facility] Potassium 3.8 3.5 - 4.5 mmol/L 04/02/2024 12:13 PM [facility] Chloride 105 98 - 107 mmol/L 04/02/2024 12:13 PM [facility] CO2 30(H) 22 - 29 mmol/L 04/02/2024 12:13 PM [facility] Glucose 106(H) 70 - 99 mg/dL 04/02/2024 12:13 PM [facility] Calcium 9.6 8.4 - 10.2 mg/dL 04/02/2024 12:13 PM [facility] Protein Total 6.8 6.0 - 8.3 g/dL 04/02/2024 12:13 PM [facility] Albumin 3.5 3.4 - 5.0 g/dL 04/02/2024 12:13 PM [facility] Bilirubin Total 0.5 0.2 - 1.2 mg/dL 04/02/2024 12:13 PM [facility] Alkaline Phosphatase 95 40 - 150 U/L 04/02/2024 12:13 PM [facility] ALT 14 5 - 55 U/L 04/02/2024 12:13 PM [facility] AST 22 5 - 34 U/L 04/02/2024 12:13 PM [facility] Anion Gap 10 6 - 16 04/02/2024 12:13 PM [facility] BUN/Creatinine Ratio 16 7 - 23 04/02/2024 12:13 PM [facility] Osmolality Calculated 307(H) 275 - 295 mOsm/kg 04/02/2024 12:13 PM [facility] Albumin/Globulin Ratio 1.1 1.1 - 2.3 04/02/2024 12:13 PM [facility] eGFR by CKD-EPI 37(L) >=90 mL/min/1.7 3 m2 04/02/2024 12:13 PM [facility] Blood BLOOD SPECIMEN / Unknown Lab Venipuncture / Unknown 04/02/2024 11:08 AM CDT 04/02/2024 11:[address] [facility] Twin Miller MD LAB - CHEMISTR Y ORDERABLES [facility] [address] [place] [address], [facility] [phone] * HEPATITIS C ANTIBODY (07/14/2017 10:11 PM ENGINEERING OFFICER) Hepatitis C Antibody Non-react marlee Non-reac tive [facility] Comment: Hepatitis C Antibody screen indicates no serologic evidence of past or current infection with Hepatitis C Virus. Patients with unexplained liver disease who are immunocompromised or suspected of having acute Hepatitis C infection may benefit from Nucleic Acid Test (SUNIL) for Hepatitis C Viral RNA to confirm Hepatitis C status. 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 04/201904/29/2019 10/17/2023 Advance Directives * Full Code (Latest Code Status on File) Date Activated Date Inactivated Comments 10/12/2023 8:17 AM 11/03/2023 3:49 PM * Full Code Date Activated Date Inactivated Comments 04/29/2019 5:45 AM 05/06/2019 3:28 PM * Full Code Date Activated Date Inactivated Comments 02/02/2019 10:08 PM 02/15/2019 8:16 PM * Full Code Date Activated Date Inactivated Comments 09/09/2017 2:08 PM 09/19/2017 2:25 PM * Full Code Date Activated Date Inactivated Comments 09/09/2017 2:01 PM 09/09/2017 2:08 PM Care Teams Landscape Foreman Relationship Specialty Start Date End Date Cleo Funk DO [address] [facility] [address] [place] [address] PCP - General Family Medicine 05/15/24
--- OUTSIDE RECORDS SUMMARY | 2024-05-24 23:31 | XMS_ITS | Referral Summary ---
Author Organization [facility] Address [address] [address] Care Team Providers Care Ic Design Engineer Name Role Phone FunkRoseth Dylan EMERSON Primary Care Provider [phone] Source Comments [facility],non-owned Affiliates and Associated Physician Practices is amultiple site organization consisting of ambulatory clinics and hospital sitesin [place], [place], [place] and [place]. This disclosure is being madepursuant to the Care Everywhere program and may not contain all information available regarding this patient. Last updated 18.[facility] Encounters Date Type Department Care Team Description 05/15/2024 Travel 05/15/2024 Orders Only [facility] - Orthopedic Surgery [address] [place] [address] [phone] Larry Alexander MD Left knee pain, unspecified chronicity 05/15/2024 12:59 PM SUPERVISOR PAPER MACHINE - 05/15/2024 11:59 PM SUPERVISOR PAPER MACHINE Hospital Encounter [facility] - Orthopedics [address] [place] [address], [address] [place] [phone] Larry Alexander MD Discharge Disposition: Home or Self Care 05/15/2024 1:15 PM SUPERVISOR PAPER MACHINE Office Visit [facility] - Orthopedic Surgery [address] [place] [address] [phone] Larry Alexander MD Primary osteoarthritis of left knee (Primary Dx) 04/02/2024 10:22 AM CDT - 04/02/2024 10:59 AM CDT Hospital Encounter [facility] OP DRAW STATION [address] [place] [address] Twin Miller MD Discharge Disposition: Home or Self Care 04/02/2024 11:00 AM CDT - 04/02/2024 11:59 PM T Hospital Encounter [facility] [address] [place] [address] Twin Miller MD Discharge Disposition: Home or Self Care 03/15/2024 Travel 03/05/2024 Travel from Last 3 Months Allergies Active Allergy Reactions Criticality Noted Date Comments Peppers GI Discomfort 10/20/2021 Green and red peppers Levofloxacin Eye Itching 04/24/2019 red around the eyes , puffy, itchy Penicillins Skin Reactions,Swelling Medium 07/14/2017 Scopolamine Other,RN CHRONIC Dysfunction 02/07/2019 delirium Tobramycin Eye Itching 10/23/2019 [...] fluticasone propionate (Flonase) 50 MCG/ACT nasal spray [place] 1 (one) spray into each nostril once [...] 07/25/2017 08/17/2018 Other cirrhosis of liver 07/25/2017 Immunizations Name Administration Dates Next Due Westley Ragsdale primary monoval ent 12+ yr 0.3mL Purple cap 03/15/2021,07/16/2020,06/25/2020 Social History Tobacco Use Types Packs/Day Years [...] Recorded Patient Health Questionnaire-2 Score 1 05/15/2024 [facility] - Occupational Stress [...] place to sleep or slept in a jail (including now)? No 10/14/2023 Sex and Gender [...] Mass Index 34.19 10/12/2023 5:07 AM CDT Functional Status Functional Status Response Date of Assess ment Is person deaf or have serious hearing difficult y? No 10/14/2023 Is person blind or have serious difficulty seein g? No 10/14/2023 Does person have serious dif ficulty walking/climbing stairs? Yes 10/14/2023 Does person have difficulty dressing/bathing? Ye s 10/14/2023 Does person have difficulty doing errands alone? Yes 10/14/2023 Cognitive Status Response Date of Assessm ent Does person have difficulty concentrating/remembering/making decisions? No 10/14/2023 Plan of Treatment Upcoming Encounters Date Type Department Care Team (Late st Contact Info) Description 07/09/2024 12:30 PM SUPERVISOR PAPER MACHINE Office Visit [facility] - GI [address] [facility] [place] [address] Twin Miller MD [facility] [place] [address] 09/19/2024 2:00 PM CDT Office Visit [facility] - Orthopedic Surgery [address] [facility] [place] [phone] Larry Alexander MD [address] [facility] [address] [place] [address] Goals Goal Patient Goal Type Associated Problems [...] On track( 023 12:04 PM CDT) No Nita Bryant RN Note: Expected end date: 08/05/2019 The goal is to maintain or improve your mobility at the optimum level for you. Interventions: Medical Devices Implanted Type Area Suspension Cord Tier Device Identifier Shelf Expiration Date Model / Serial / Lot Trident 10 Deg X 3 Insert 36mm Id Implanted:Qty: 1 on 02/08/2019 by Larry Alexander MD at [facility] Hip [employer] 06/23/2021 [id number] [id number] / / [id number] Description:36MM POLYETHYLEN E INSERT C-Taper Cocr Lfit Head 36mm/0 Implanted:Qty: 1 on 02/08/2019 by Larry Alexander MD at [facility] Hip [employer] 02/12/2023 06-3600 / / [id number] Description:LEFT FEMORAL HEA D 36MM Procedures Procedure Name Priority Date/Time Associated Diagnosis Comments SC DRAIN/INJECT LARGE JOINT/BURSA Routine 05/15/2024 1:52 PM SUPERVISOR PAPER MACHINE Primary osteoarthritis of left knee XR KNEE LEFT 3VW Routine 05/15/2024 1:22 PM SUPERVISOR PAPER MACHINE Left knee pain, unspecified chronicity US ABDOMEN LIMITED Routine 04/02/2024 12 :11 PM CDT 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) Cirrhosis of liver without ascites, unspecified hepatic cirrhosis type (HCC) Nonalcoholic steatohepatitis (RAYGOZA) Atrial fibrillation, unspecified type (HCC) Acute gastric ulcer with hemorrhage PT-INR [facility] Routine 04/02/2024 11:08 AM CDT Liver cirrhosis [...] HEPATITIS C ANTIBODY Routine 07/14/2017 10:11 PM SUPERVISOR PAPER MACHINE from Last 3 Months or Most Recently Relevant to Health Maintenance Results * SC DRAIN/INJECT LARGE JOINT/BURSA (05/15/2024 1:52 PM SUPERVISOR PAPER MACHINE) Narrative Larry Alexander MD - 05/15/2024 1:52 PM SUPERVISOR PAPER MACHINE Larry Alexander MD ? 05/15/2024 ??4:48 PM Orthopaedic Surgery Procedure Note Mason Keys [id number] Diagnosis: Left knee pain Procedure: Injection of [...] XR Knee Left 3Vw (05/15/2024 1:22 PM SUPERVISOR PAPER MACHINE) Anatomical Region Laterality Modality Lower Extremity Radiographic Shama ging 05/15/2024 1:51 PM SUPERVISOR PAPER MACHINE Narrative 05/15/2024 1:51 PM SUPERVISOR PAPER MACHINE Procedure: XR KNEE LEFT 3VW ??Exam Date: ??05/15/2024 1:23 PM ?? Location: ??[facility] Indication: M25.562: Pain in left knee Findings/impression: [...] LEFT 3VW Exam Date: 05/15/2024 1:23 PM Location:[facility] Indication: M25.562: Pain in left knee Findings/impression: [...] DATE/TIME OF EXAM: ??04/02/2024 12:19 PM, LOCATION ??[facility] INDICATION: K75.81: 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 [...] DATE/TIME OF EXAM: 04/02/2024 12:19 PM, LOCATION [facility] INDICATION: K75.81: 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 [...] Miller MD US ORDERABLES * (ABNORMAL) PT-INR [facility] (04/02/2024 11:08 AM CDT) PT 17.9(H) 12.1 - 14.8 Seconds 04/02/2024 12:13 PM CDT [facility] INR 1.5 See Comment 04/02/2024 12:13 PM CDT [facility] Comment:The suggested therap eutic range for standard coumadin (warfarin) therapy is an INR of 2.0-3.0. For high-risk patients (Mechanical Mitral Valve Prosthesis, etc.), the suggested prophylactic therapeutic range is an INR of 2.5-3.5. Blood BLOOD SPECIMEN / Unknown Lab Venipuncture / Unknown 04/02/2024 11:08 AM CDT 04/02/2024 11:14 AM CDT Twin Miller MD LAB - COAGULAT ION ORDERABLES [facility] [address] [place] [address], [facility] [phone] * ALPHA FETOPROTEIN BLOOD TUMOR MARKER (04/02/2024 11:08 AM CDT) [facility] Alpha-Fetoprote in Tumor Marker <2.0 <=8.3 ng/mL 04/02/2024 12:37 PM [facility] Comment: AFP values will vary depending on testing procedure used. Results are not comparable across different methods. AFP values obtained by [facility] using an Farias Alinity Immunoassay. Blood BLOOD SPECIMEN / Unknown Lab Venipuncture / Unknown 04/02/2024 11:08 AM CDT 04/02/2024 11:46 AM CDT Twin Miller MD LAB - CHEMISTR Y ORDERABLES [address] [address], [facility] [phone] * (ABNORMAL) CBC WITH DIFFERENTIAL (04/02/2024 11:08 AM CDT) [facility] WBC 6.7 4.0 - 10.7 x10E9/L 04/02/2024 1:27 PM [facility] RBC Count 3.48(L) 4.30 - 5.80 x10E12/L 04/02/2024 1:27 PM [facility] Hemoglobin 10.1(L) 13.3 - 17.5 g/dL 04/02/2024 1:27 PM [facility] Hematocrit 33.6(L) 38.7 - 51.1 % 04/02/2024 1:27 PM [facility] MCV 96.6 80.0 - 98.0 fL 04/02/2024 1:27 PM [facility] MCH 29.0 26.7 - 33.6 pg 04/02/2024 1:27 PM [facility] MCHC 30.1(L) 31.7 - 36.3 g/dL 04/02/2024 1:27 PM [facility] RDW-CV 15.7(H) 11.3 - 14.8 % 04/02/2024 1:27 PM [facility] Platelet Count 120(L) 150 - 420 x10E9/L 04/02/2024 1:27 PM [facility] MPV 04/02/2024 1:27 PM [facility] Comment:Unable to report Neutrophil % 67.8 41.0 - 74.0 % 04/02/2024 1:27 PM [facility] Lymphocyte % 12.7(L) 17.0 - 47.0 % 04/02/2024 1:27 PM [facility] Monocyte % 13.0(H) 3.0 - 11.0 % 04/02/2024 1:27 PM [facility] Eosinophil % 5.7 0.0 - 7.0 % 04/02/2024 1:27 PM [facility] Basophil % 0.7 0.0 - 1.6 % 04/02/2024 1:27 PM [facility] Immature Granulocytes % 0.1 0.0 - 1.0 % 04/02/2024 1:27 PM [facility] Neutrophil Absolute 4.51 1.60 - 7.50 x10E9/L 04/02/2024 1:27 PM [facility] Lymphocyte Absolute 0.85(L) 1.00 - 4.40 x10E9/L 04/02/2024 1:27 PM [facility] Monocyte Absolute 0.87 0.15 - 1.00 x10E9/L 04/02/2024 1:27 PM [facility] Eosinophil Absolute 0.38 0.00 - 0.60 x10E9/L 04/02/2024 1:27 PM [facility] Basophil Absolute 0.05 0.00 - 0.13 x10E9/L 04/02/2024 1:27 PM [facility] Blood BLOOD SPECIMEN / Unknown Lab Venipuncture / Unknown 04/02/2024 11:08 AM CDT 04/02/2024 11:46 AM T Twin Miller MD LAB - HEMATOLO GY ORDERABLES [facility] [address] [place] [address], [facility] [phone] * (ABNORMAL) COMPREHENSIVE METABOLIC PANEL (04/02/2024 11:08 AM [facility]) BUN 30(H) 7 - 26 mg/dL 04/02/2024 12:13 PM [facility] Creatinine 1.87(H) 0.71 - 1.16 mg/dL 04/02/2024 12:13 PM [facility] Sodium 145 136 - 145 mmol/L 04/02/2024 12:13 PM [facility] Potassium 3.8 3.5 - 4.5 mmol/L 04/02/2024 12:13 PM [facility] Chloride 105 98 - 107 mmol/L 04/02/2024 12:13 PM [facility] CO2 30(H) 22 - 29 mmol/L 04/02/2024 12:13 PM [facility] Glucose 106(H) 70 - 99 mg/dL 04/02/2024 12:13 PM [facility] Calcium 9.6 8.4 - 10.2 mg/dL 04/02/2024 12:13 PM [facility] Protein Total 6.8 6.0 - 8.3 g/dL 04/02/2024 12:13 PM [facility] Albumin 3.5 3.4 - 5.0 g/dL 04/02/2024 12:13 PM [facility] Bilirubin Total 0.5 0.2 - 1.2 mg/dL 04/02/2024 12:13 PM [facility] Alkaline Phosphatase 95 40 - 150 U/L 04/02/2024 12:13 PM [facility] ALT 14 5 - 55 U/L 04/02/2024 12:13 PM [facility] AST 22 5 - 34 U/L 04/02/2024 12:13 PM [facility] Anion Gap 10 6 - 16 04/02/2024 12:13 PM [facility] BUN/Creatinine Ratio 16 7 - 23 04/02/2024 12:13 PM [facility] Osmolality Calculated 307(H) 275 - 295 mOsm/kg 04/02/2024 12:13 PM [facility] Albumin/Globulin Ratio 1.1 1.1 - 2.3 04/02/2024 12:13 PM CDT [facility] eGFR by CKD-EPI 37(L) >=90 mL/min/1.7 3 m2 04/02/2024 12:13 PM CDT [facility] Blood BLOOD SPECIMEN / Unknown Lab Venipuncture / Unknown 04/02/2024 11:08 AM CDT 04/02/2024 11:46 AM CDT Twin Miller MD LAB - CHEMISTR Y ORDERABLES [facility] [address] [place] [address], [facility] [phone] * HEPATITIS C ANTIBODY (07/14/2017 10:11 PM SUPERVISOR PAPER MACHINE) Pathologist [facility] Hepatitis C Antibody Non-react [facility] Comment: Hepatitis C Antibody screen indicates no serologic evidence of past or current infection with Hepatitis C Virus. Patients with unexplained liver disease who are immunocompromised or suspected of having acute Hepatitis C infection may benefit from Nucleic Acid Test (SUNIL) for Hepatitis C Viral RNA to confirm Hepatitis C status. Blood specimen (specimen) BLOOD SPECIMEN / Unknown 07/14/2017 10:11 PM SUPERVISOR PAPER MACHINE 07/14/2017 10:25 PM SUPERVISOR PAPER MACHINE Angela Corona MD LAB - CHEMISTRY ROYCE KLINE [facility] [address] [phone] from Last 3 Months or Most Recently [...] 2:01 PM 09/09/2017 2:08 PM Care Teams Ic Design Engineer Relationship Specialty Start Date End Date Cleo Funk DO [address] [place] [address] PCP - General Family Medicine 05/15/24
--- OUTSIDE RECORDS SUMMARY | 2024-05-24 23:31 | XMS_ITS | Patient Health Summary ---
Author Organization [facility] Address [address] [place] [address] Care Team Providers Care Fabric Stretcher Name Role Phone Cleo Funk DO Primary Care Provider [phone] Note from [facility],non-owned Affiliates and Associated Physician Practices is amultiple site organization consisting of ambulatory clinics and hospital sitesin [place], [place], [place] and [place]. This disclosure is being madepursuant to the Care Everywhere program and may not contain all information available regarding this patient. 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 Alwaysverify current medications with the patient. * acetaminophen (TYLENOL) 325 MG tablet Take 2 (two) tablets by mouth every 4 hours as needed * tamsulosin (FLOMAX) 0.4 MG capsule(Started 02/08/2018) Take 1 (one) capsule by mouth at bedtime 1 refill left * roflumilast (DALIRESP) 500 MCG tablet Take 1 (one) tablet by mouth once daily * doxycycline hyclate (VIBRAMYCIN) 100 MG capsule Take 1 (one) capsule by mouth once daily * ferrous sulfate 325 (65 FE) MG tablet Take 1 (one) tablet by mouth daily with breakfast * bumetanide (BUMEX) 0.5 MG tablet Take 1 (one) tablet by mouth 2 times daily * apixaban (ELIQUIS) 5 MG tablet Take 1 (one) tablet by mouth 2 times daily * aspirin EC (ECOTRIN) 81 MG tablet Take 1 (one) tablet by mouth once daily * metoprolol succinate XL 24hr (TOPROL XL) 50 MG tablet Take 1 (one) tablet by mouth once daily * Cetirizine HCl (ZYRTEC PO) Take 10 mg by mouth daily with breakfast * baclofen (LIORESAL) 10 MG tablet Take 1 (one) tablet by mouth at bedtime May cause drowsiness. * BREZTRI AEROSPHERE 160-9-4.8 MCG/ACT AERO(Started 08/03/2021) Inhale 2 (two) puffs by mouth 2 times daily * Pyridoxine HCl (VITAMIN B-6 PO) Take 100 mg by mouth once daily * magnesium oxide (Mag-Ox) 400 MG tablet Take 1 (one) tablet by mouth 2 times daily * spironolactone (Aldactone) 25 MG tablet(Started 01/27/2021) Take 0.5 (one-half) tablet by mouth once daily * Oxygen 1 L * vitamin D3 (Cholecalciferol) 25 MCG (1000 UNITS) tablet Take 1 (one) tablet by mouth once daily * albuterol HFA (Proventil; Ventolin; Proair) 108 (90 Base) MCG/ACT inhaler Inhale 2 (two) puffs by mouth as needed for Shortness of Breath * folic acid 400 MCG tablet Take 1 (one) tablet by mouth once daily * fluticasone propionate (Flonase) 50 MCG/ACT nasal spray [place] 1 (one) spray into each nostril once daily * omeprazole (PriLOSEC) 40 MG capsule Take 1 (one) capsule by mouth daily before breakfast * albuterol-ipratropium (Duo-Neb) 0.5-2.5 (3) MG/3ML nebulizer solution Inhale 3 mL by mouth 4 times daily * Other (Patient uses variety of topicals...Eucerin, triamcinolone, hydrocortisone) * hydrOXYzine HCl (Atarax) 25 MG tablet(Started 11/02/2023) Take 1 (one) tablet by mouth 2 times daily for 30 days * levalbuterol (Xopenex) 1.25 MG/0.5ML nebulizer solution(Started 11/02/2023) Inhale 0.5 mL by mouth every 6 hours * venlafaxine (Effexor) 37.5 MG tablet(Started 11/03/2023) Take 1 (one) tablet by mouth once daily for 30 days * lactobacillus (Lactinex) PACK granules(Started 11/02/2023) Take 1 (one) packet by mouth 3 times daily * losartan (Cozaar) 25 MG tablet(Started 11/03/2023) Take 1 (one) tablet by mouth once daily Reasons: High Blood Pressure Disorder * senna (Senokot) 8.6 MG tablet(Started 11/02/2023) Take 1 (one) tablet by mouth 2 times daily as needed for Constipation * rifAXIMin (Xifaxan) 550 MG tablet(Started 11/02/2023) Take 1 (one) tablet by mouth 2 times daily * doxycycline monohydrate 100 MG capsule(Started 11/03/2023) Take 1 (one) capsule by mouth once daily Active Problems Problem Noted Date Diagnosed Date Sepsis due to other etiology 10/12/2023 Benign prostatic hyperplasia without lower urinary tract symptoms 06/06/2019 Infection of right prosthetic hip joint 02/03/20 19 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 08/17/2018 Hypoxemia 09/06/2017 Pleural effusion on left 08/29/2017 [...] 08/17/2018 Other cirrhosis of liver 07/25/2017 Immunizations * Covid Pfizer primary monovalent 12+ yr 0.3mL Purple cap(Given 03/15/2021, 07/16/2020, 06/25/2020) Social History Tobacco Use Types Packs/Day Years [...] Recorded Patient Health Questionnaire-2 Score 1 05/15/2024 [facility] [place] of Occupat ional Health - Occupational Stress [...] place to sleep or slept in a [place] health care facility (including now)? No 10/14/2023 Sex and Gender [...] Mass Index 34.19 10/12/2023 5:07 AM CDT Medical Devices Implanted Type Area Greige Goods Inspector Device Identifier Shelf Expiration Date Model / Serial / Lot Trident 10 Deg X 3 Insert 36mm Id Implanted:Qty: 1 on 02/08/2019 by Larry Alexander MD at [facility] [place] [employer] 06/23/2021 623-100 [id number] / / [id number] Description:36MM POLYETHYLEN E INSERT C-Taper Cocr Lfit Head 36mm/0 Implanted:Qty: 1 on 02/08/2019 by Larry Alexander MD at [facility] [place] [employer] 02/12/2023 06-3600 / / [id number] Description:LEFT FEMORAL HEA D 36MM Procedures * WV DRAIN/INJECT LARGE JOINT/BURSA(Performed 05/15/2024) Performed for Primary osteoarthritis of left knee * XR KNEE LEFT 3VW(Performed 05/15/2024) Performed for Left knee pain, unspecified chronicity * US ABDOMEN LIMITED(Performed 04/02/2024) Performed for 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), Cirrhosis of liver without ascites, unspecified hepatic cirrhosis type (HCC), Nonalcoholic steatohepatitis (RAYGOZA), Atrial fibrillation, unspecified type (HCC), Acute gastric ulcer with hemorrhage * PT-INR [facility](Performed 04/02/2024) Performed for 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), Nonalcoholic steatohepatitis (RAYGOZA) * COMPREHENSIVE METABOLIC PANEL(Performed 04/02/2024) Performed for 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), Nonalcoholic steatohepatitis (RAYGOZA) * CBC W AUTO DIFFERENTIAL(Performed 04/02/2024) Performed for 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), Nonalcoholic steatohepatitis (RAYGOZA) * ALPHA FETOPROTEIN BLOOD TUMOR MARKER(Performed 04/02/2024) Performed for 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), Nonalcoholic steatohepatitis (RAYGOZA) * CARDIAC EKG ORDER(Performed 11/07/2023) * CARDIAC EKG ORDER(Performed 11/04/2023) * GLUCOSE - POINT OF CARE(Performed 11/03/2023) * SARS-COV-2 (COVID-19) RAPID(Performed 11/03/2023) * GLUCOSE - POINT OF CARE(Performed 11/03/2023) * BASIC METABOLIC PANEL (CALCIUM TOTAL)(Performed 11/03/2023) * CBC W AUTO DIFFERENTIAL(Performed 11/03/2023) * MAGNESIUM BLOOD(Performed 11/03/2023) * GLUCOSE - POINT OF CARE(Performed 11/02/2023) * GLUCOSE - POINT OF CARE(Performed 11/02/2023) * XR CHEST 1VW PORTABLE(Performed 11/02/2023) Performed for Hypoxemia * BLOOD GASES ARTERIAL(Performed 11/02/2023) * CARDIAC EKG ORDER(Performed 11/02/2023) * GLUCOSE - POINT OF CARE(Performed 11/02/2023) * BASIC METABOLIC PANEL (CALCIUM TOTAL)(Performed 11/02/2023) * CBC W AUTO DIFFERENTIAL(Performed 11/02/2023) * MAGNESIUM BLOOD(Performed 11/02/2023) * GLUCOSE - POINT OF CARE(Performed 11/02/2023) * GLUCOSE - POINT OF CARE(Performed 11/01/2023) * GLUCOSE - POINT OF CARE(Performed 11/01/2023) * GLUCOSE - POINT OF CARE(Performed 11/01/2023) * GLUCOSE - POINT OF CARE(Performed 11/01/2023) * B-TYPE NATRIURETIC PEPTIDE(Performed 11/01/2023) * LIPID PROFILE(Performed 11/01/2023) * CBC W AUTO DIFFERENTIAL(Performed 11/01/2023) * MAGNESIUM BLOOD(Performed 11/01/2023) * GLUCOSE - POINT OF CARE(Performed 10/31/2023) * GLUCOSE - POINT OF CARE(Performed 10/31/2023) * GLUCOSE - POINT OF CARE(Performed 10/31/2023) * GLUCOSE - POINT OF CARE(Performed 10/31/2023) * XR CHEST 1VW PORTABLE(Performed 10/31/2023) Performed for Acute respiratory failure, unspecified whether with hypoxia or hypercapnia (HCC) * CBC W AUTO DIFFERENTIAL(Performed 10/31/2023) * MAGNESIUM BLOOD(Performed 10/31/2023) * GLUCOSE - POINT OF CARE(Performed 10/30/2023) * GLUCOSE - POINT OF CARE(Performed 10/30/2023) * GLUCOSE - POINT OF CARE(Performed 10/30/2023) * GLUCOSE - POINT OF CARE(Performed 10/30/2023) * GLUCOSE - POINT OF CARE(Performed 10/30/2023) * BASIC METABOLIC PANEL (CALCIUM TOTAL)(Performed 10/30/2023) * CBC W AUTO DIFFERENTIAL(Performed 10/30/2023) * MAGNESIUM BLOOD(Performed 10/30/2023) * GLUCOSE - POINT OF CARE(Performed 10/29/2023) * GLUCOSE - POINT OF CARE(Performed 10/29/2023) * GLUCOSE - POINT OF CARE(Performed 10/29/2023) * GLUCOSE - POINT OF CARE(Performed 10/29/2023) * CBC W AUTO DIFFERENTIAL(Performed 10/29/2023) * MAGNESIUM BLOOD(Performed 10/29/2023) * GLUCOSE - POINT OF CARE(Performed 10/28/2023) * GLUCOSE - POINT OF CARE(Performed 10/28/2023) * GLUCOSE - POINT OF CARE(Performed 10/28/2023) * GLUCOSE - POINT OF CARE(Performed 10/28/2023) * GLUCOSE - POINT OF CARE(Performed 10/28/2023) * CBC W AUTO DIFFERENTIAL(Performed 10/28/2023) * MAGNESIUM BLOOD(Performed 10/28/2023) * GLUCOSE - POINT OF CARE(Performed 10/27/2023) * GLUCOSE - POINT OF CARE(Performed 10/27/2023) * GLUCOSE - POINT OF CARE(Performed 10/27/2023) * VAS RIGHT VENOUS DUPLEX UE(Performed 10/27/2023) Performed for Right elbow pain * GLUCOSE - POINT OF CARE(Performed 10/27/2023) * DIFFERENTIAL MANUAL(Performed 10/27/2023) * CBC W AUTO DIFFERENTIAL(Performed 10/27/2023) * MAGNESIUM BLOOD(Performed 10/27/2023) * GLUCOSE - POINT OF CARE(Performed 10/26/2023) * GLUCOSE - POINT OF CARE(Performed 10/26/2023) * GLUCOSE - POINT OF CARE(Performed 10/26/2023) * XR ELBOW RIGHT 2VW(Performed 10/26/2023) Performed for Right elbow pain * GLUCOSE - POINT OF CARE(Performed 10/26/2023) * GLUCOSE - POINT OF CARE(Performed 10/26/2023) * DIFFERENTIAL MANUAL(Performed 10/26/2023) * CBC W AUTO DIFFERENTIAL(Performed 10/26/2023) * RENAL FUNCTION PANEL(Performed 10/26/2023) * MAGNESIUM BLOOD(Performed 10/26/2023) * GLUCOSE - POINT OF CARE(Performed 10/25/2023) * GLUCOSE - POINT OF CARE(Performed 10/25/2023) * GLUCOSE - POINT OF CARE(Performed 10/25/2023) * GLUCOSE - POINT OF CARE(Performed 10/25/2023) * CBC W AUTO DIFFERENTIAL(Performed 10/25/2023) * MAGNESIUM BLOOD(Performed 10/25/2023) * RENAL FUNCTION PANEL(Performed 10/25/2023) * GLUCOSE - POINT OF CARE(Performed 10/24/2023) * GLUCOSE - POINT OF CARE(Performed 10/24/2023) * GLUCOSE - POINT OF CARE(Performed 10/24/2023) * GLUCOSE - POINT OF CARE(Performed 10/24/2023) * XR CHEST 1VW(Performed 10/24/2023) Performed for Acute respiratory failure with hypoxia (HCC), Oropharyngeal dysphagia * CBC W AUTO DIFFERENTIAL(Performed 10/24/2023) * MAGNESIUM BLOOD(Performed 10/24/2023) * RENAL FUNCTION PANEL(Performed 10/24/2023) * GLUCOSE - POINT OF CARE(Performed 10/23/2023) * GLUCOSE - POINT OF CARE(Performed 10/23/2023) * GLUCOSE - POINT OF CARE(Performed 10/23/2023) * GLUCOSE - POINT OF CARE(Performed 10/23/2023) * CBC W AUTO DIFFERENTIAL(Performed 10/23/2023) * MAGNESIUM BLOOD(Performed 10/23/2023) * RENAL FUNCTION PANEL(Performed 10/23/2023) * GLUCOSE - POINT OF CARE(Performed 10/22/2023) * XR ABDOMEN KUB(Performed 10/22/2023) Performed for Oropharyngeal dysphagia * GLUCOSE - POINT OF CARE(Performed 10/22/2023) * BASIC METABOLIC PANEL (CALCIUM TOTAL)(Performed 10/22/2023) * GLUCOSE - POINT OF CARE(Performed 10/22/2023) * GLUCOSE - POINT OF CARE(Performed 10/22/2023) * CBC W AUTO DIFFERENTIAL(Performed 10/22/2023) * MAGNESIUM BLOOD(Performed 10/22/2023) * RENAL FUNCTION PANEL(Performed 10/22/2023) * GLUCOSE - POINT OF CARE(Performed 10/21/2023) * GLUCOSE - POINT OF CARE(Performed 10/21/2023) * GLUCOSE - POINT OF CARE(Performed 10/21/2023) * FL SWALLOWING FUNCTION STUDY(Performed 10/21/2023) Performed for Oropharyngeal dysphagia * GLUCOSE - POINT OF CARE(Performed 10/21/2023) * SLIDE SCAN HEMATOLOGY(Performed 10/21/2023) * CBC W AUTO DIFFERENTIAL(Performed 10/21/2023) * MAGNESIUM BLOOD(Performed 10/21/2023) * RENAL FUNCTION PANEL(Performed 10/21/2023) * GLUCOSE - POINT OF CARE(Performed 10/20/2023) * GLUCOSE - POINT OF CARE(Performed 10/20/2023) * RENAL FUNCTION PANEL(Performed 10/20/2023) * EEG(Performed 10/20/2023) * GLUCOSE - POINT OF CARE(Performed 10/20/2023) * GLUCOSE - POINT OF CARE(Performed 10/20/2023) * XR CHEST 1VW PORTABLE(Performed 10/20/2023) Performed for Acute respiratory failure, unspecified whether with hypoxia or hypercapnia (HCC) * DIFFERENTIAL MANUAL(Performed 10/20/2023) * CBC W AUTO DIFFERENTIAL(Performed 10/20/2023) * MAGNESIUM BLOOD(Performed 10/20/2023) * RENAL FUNCTION PANEL(Performed 10/20/2023) * GLUCOSE - POINT OF CARE(Performed 10/19/2023) * GLUCOSE - POINT OF CARE(Performed 10/19/2023) * SODIUM BLOOD(Performed 10/19/2023) * GLUCOSE - POINT OF CARE(Performed 10/19/2023) * GLUCOSE - POINT OF CARE(Performed 10/19/2023) * DIFFERENTIAL MANUAL(Performed 10/19/2023) * CBC W AUTO DIFFERENTIAL(Performed 10/19/2023) * COMPREHENSIVE METABOLIC PANEL(Performed 10/19/2023) * MAGNESIUM BLOOD(Performed 10/19/2023) * GLUCOSE - POINT OF CARE(Performed 10/18/2023) * GLUCOSE - POINT OF CARE(Performed 10/18/2023) * GLUCOSE - POINT OF CARE(Performed 10/18/2023) * COMPREHENSIVE METABOLIC PANEL(Performed 10/18/2023) * MAGNESIUM BLOOD(Performed 10/18/2023) * BLOOD GASES ART + COOX PANEL(Performed 10/17/2023) Performed for Acute respiratory failure with hypoxia (HCC) * GLUCOSE - POINT OF CARE(Performed 10/17/2023) * RENAL FUNCTION PANEL(Performed 10/17/2023) * GLUCOSE - POINT OF CARE(Performed 10/17/2023) * BLOOD GASES ART + COOX PANEL(Performed 10/17/2023) * RENAL FUNCTION PANEL(Performed 10/17/2023) * XR ABDOMEN KUB(Performed 10/17/2023) Performed for Acute respiratory failure, unspecified whether with hypoxia or hypercapnia (HCC) * AMMONIA(Performed 10/17/2023) * XR CHEST 1VW PORTABLE(Performed 10/17/2023) Performed for Acute respiratory failure, unspecified whether with hypoxia or hypercapnia (HCC) * C-REACTIVE PROTEIN(Performed 10/17/2023) * B-TYPE NATRIURETIC PEPTIDE(Performed 10/17/2023) * GLUCOSE - POINT OF CARE(Performed 10/17/2023) * CT HEAD WO CONTRAST(Performed 10/17/2023) Performed for Acute respiratory failure, unspecified whether with hypoxia or hypercapnia (HCC) * GLUCOSE - POINT OF CARE(Performed 10/17/2023) * GLUCOSE - POINT OF CARE(Performed 10/17/2023) * BLOOD GASES ART + COOX PANEL(Performed 10/17/2023) * GLUCOSE - POINT OF CARE(Performed 10/17/2023) * GLUCOSE - POINT OF CARE(Performed 10/17/2023) * GLUCOSE - POINT OF CARE(Performed 10/17/2023) * GLUCOSE - POINT OF CARE(Performed 10/17/2023) * BLOOD GASES ART + COOX PANEL(Performed 10/17/2023) * B-TYPE NATRIURETIC PEPTIDE(Performed 10/17/2023) * CBC W AUTO DIFFERENTIAL(Performed 10/17/2023) * COMPREHENSIVE METABOLIC PANEL(Performed 10/17/2023) * MAGNESIUM BLOOD(Performed 10/17/2023) * BLOOD GASES ART + COOX PANEL(Performed 10/17/2023) Performed for Acute respiratory failure, unspecified whether with hypoxia or hypercapnia (HCC) * BLOOD GASES ART + COOX PANEL(Performed 10/17/2023) * GLUCOSE - POINT OF CARE(Performed 10/16/2023) * XR CHEST 1VW PORTABLE(Performed 10/16/2023) Performed for Acute respiratory failure, unspecified whether with hypoxia or hypercapnia (HCC) * BASIC METABOLIC PANEL (CALCIUM TOTAL)(Performed 10/16/2023) * BLOOD GASES ART + COOX PANEL(Performed 10/16/2023) * GLUCOSE - POINT OF CARE(Performed 10/16/2023) * GLUCOSE - POINT OF CARE(Performed 10/16/2023) * GLUCOSE - POINT OF CARE(Performed 10/16/2023) * GLUCOSE - POINT OF CARE(Performed 10/16/2023) * XR CHEST 1VW PORTABLE(Performed 10/16/2023) Performed for Acute respiratory failure, unspecified whether with hypoxia or hypercapnia (HCC) * CT CHEST ABDOMEN PELVIS WO CONT(Performed 10/16/2023) Performed for Sepsis due to other etiology (HCC) * GLUCOSE - POINT OF CARE(Performed 10/16/2023) * DIFFERENTIAL MANUAL(Performed 10/16/2023) * CBC W AUTO DIFFERENTIAL(Performed 10/16/2023) * COMPREHENSIVE METABOLIC PANEL(Performed 10/16/2023) * MAGNESIUM BLOOD(Performed 10/16/2023) * GLUCOSE - POINT OF CARE(Performed 10/15/2023) * GLUCOSE - POINT OF CARE(Performed 10/15/2023) * XR CHEST 1VW PORTABLE(Performed 10/15/2023) Performed for Acute respiratory failure, unspecified whether with hypoxia or hypercapnia (HCC) * CT FEMUR LEFT WO CONTRAST(Performed 10/15/2023) Performed for Sepsis due to other etiology (HCC) * GLUCOSE - POINT OF CARE(Performed 10/15/2023) * GLUCOSE - POINT OF CARE(Performed 10/15/2023) * SLIDE SCAN HEMATOLOGY(Performed 10/15/2023) * PHOSPHORUS BLOOD(Performed 10/15/2023) * CK BLOOD(Performed 10/15/2023) * CBC W AUTO DIFFERENTIAL(Performed 10/15/2023) * COMPREHENSIVE METABOLIC PANEL(Performed 10/15/2023) * MAGNESIUM BLOOD(Performed 10/15/2023) * GLUCOSE - POINT OF CARE(Performed 10/14/2023) * GLUCOSE - POINT OF CARE(Performed 10/14/2023) * GLUCOSE - POINT OF CARE(Performed 10/14/2023) * GLUCOSE - POINT OF CARE(Performed 10/14/2023) * SLIDE SCAN HEMATOLOGY(Performed 10/14/2023) * CK BLOOD(Performed 10/14/2023) * PHOSPHORUS BLOOD(Performed 10/14/2023) * FOLATE(Performed 10/14/2023) * IRON + TRANSFERRIN PANEL(Performed 10/14/2023) * VANCOMYCIN LEVEL RANDOM(Performed 10/14/2023) * CBC W AUTO DIFFERENTIAL(Performed 10/14/2023) * COMPREHENSIVE METABOLIC PANEL(Performed 10/14/2023) * MAGNESIUM BLOOD(Performed 10/14/2023) * GLUCOSE - POINT OF CARE(Performed 10/13/2023) * GLUCOSE - POINT OF CARE(Performed 10/13/2023) * URINE MICROSCOPIC ONLY(Performed 10/13/2023) * LYTES (NA K CL) URINE RANDOM PANEL(Performed 10/13/2023) * URINALYSIS REFLEX TO MICROSCOPIC NO CULTURE(Performed 10/13/2023) * CK BLOOD(Performed 10/13/2023) * BASIC METABOLIC PANEL (CALCIUM TOTAL)(Performed 10/13/2023) * GLUCOSE - POINT OF CARE(Performed 10/13/2023) * GLUCOSE - POINT OF CARE(Performed 10/13/2023) * GLUCOSE - POINT OF CARE(Performed 10/13/2023) * SLIDE SCAN HEMATOLOGY(Performed 10/13/2023) * HEMOGLOBIN A1C(Performed 10/13/2023) * CBC W AUTO DIFFERENTIAL(Performed 10/13/2023) * COMPREHENSIVE METABOLIC PANEL(Performed 10/13/2023) * MAGNESIUM BLOOD(Performed 10/13/2023) * VANCOMYCIN LEVEL RANDOM(Performed 10/13/2023) * GLUCOSE - POINT OF CARE(Performed 10/13/2023) * GLUCOSE - POINT OF CARE(Performed 10/12/2023) * GLUCOSE - POINT OF CARE(Performed 10/12/2023) * BLOOD GASES ART + COOX PANEL(Performed 10/12/2023) * GLUCOSE - POINT OF CARE(Performed 10/12/2023) * LACTIC ACID BLOOD(Performed 10/12/2023) * RENAL FUNCTION PANEL(Performed 10/12/2023) * ECHO COMPLETE W CONTRAST(Performed 10/12/2023) Performed for Acute respiratory failure, unspecified whether with hypoxia or hypercapnia (HCC) * C-REACTIVE PROTEIN(Performed 10/12/2023) * CK BLOOD(Performed 10/12/2023) * LIPASE BLOOD(Performed 10/12/2023) * CT FEMUR LEFT WO CONTRAST(Performed 10/12/2023) Performed for Sepsis due to other etiology (HCC) * CULTURE BLOOD(Performed 10/12/2023) * CULTURE BLOOD(Performed 10/12/2023) * BLOOD GASES ART + COOX PANEL(Performed 10/12/2023) * XR CHEST 1VW PORTABLE(Performed 10/12/2023) Performed for Acute respiratory failure, unspecified whether with hypoxia or hypercapnia (HCC) * BLOOD GASES ARTERIAL(Performed 10/12/2023) * SLIDE SCAN HEMATOLOGY(Performed 10/12/2023) * PHOSPHORUS BLOOD(Performed 10/12/2023) * MAGNESIUM BLOOD(Performed 10/12/2023) * LACTIC ACID BLOOD(Performed 10/12/2023) * COMPREHENSIVE METABOLIC PANEL(Performed 10/12/2023) * COAGULATION PANEL W D-DIMER(Performed 10/12/2023) * CBC W AUTO DIFFERENTIAL(Performed 10/12/2023) * [facility] ED EGD FLEX TRANSORAL DX(Performed 05/12/2023) Performed for Nonalcoholic steatohepatitis (RAYGOZA), Acute gastric ulcer with hemorrhage * EGD(Performed 05/12/2023) * US ABDOMEN LIMITED(Performed 03/21/2023) Performed for 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), Lower extremity edema, Cirrhosis of liver without ascites, unspecified hepatic cirrhosis type (HCC) * PT-INR(Performed 03/08/2023) * ALPHA FETOPROTEIN BLOOD TUMOR MARKER(Performed 03/08/2023) * CBC W/O DIFFERENTIAL(Performed 03/08/2023) * COMPREHENSIVE METABOLIC PANEL(Performed 03/08/2023) * PATHOLOGY TISSUE(Performed 10/07/2022) Performed for 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) * [facility] ED EGD FLEX TRANSORAL DX(Performed 10/07/2022) Performed for 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) * GLUCOSE - POINT OF CARE(Performed 10/07/2022) * EGD(Performed 10/07/2022) * C-REACTIVE PROTEIN(Performed 08/23/2022) * ERYTHROCYTE SEDIMENTATION RATE(Performed 08/23/2022) * COMPREHENSIVE METABOLIC PANEL(Performed 08/23/2022) * CBC W AUTO DIFFERENTIAL(Performed 08/23/2022) * VAS RIGHT VENOUS DUPLEX LE(Performed 08/23/2022) Performed for Pain of right lower extremity, Leg swelling * US ABDOMEN LIMITED(Performed 08/23/2022) Performed for 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) * PT-INR(Performed 08/10/2022) Performed for 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) * CBC W AUTO DIFFERENTIAL(Performed 08/10/2022) Performed for 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) * COMPREHENSIVE METABOLIC PANEL(Performed 08/10/2022) Performed for 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) * PT-INR(Performed 05/13/2022) Performed for 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) * CBC W AUTO DIFFERENTIAL(Performed 05/13/2022) Performed for 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) * COMPREHENSIVE METABOLIC PANEL(Performed 05/13/2022) Performed for 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) * US ABDOMEN LIMITED(Performed 02/23/2022) Performed for 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), Lower extremity edema, Cirrhosis of liver without ascites, unspecified hepatic cirrhosis type (HCC), Screening of cancer * ALPHA FETOPROTEIN BLOOD TUMOR MARKER(Performed 02/09/2022) * CBC W AUTO DIFFERENTIAL(Performed 02/09/2022) * COMPREHENSIVE METABOLIC PANEL(Performed 02/09/2022) * PT-INR(Performed 02/09/2022) * US ABDOMEN LIMITED(Performed 08/25/2021) Performed for 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), Lower extremity edema, Cirrhosis of liver without ascites, unspecified hepatic cirrhosis type (HCC), Screening of cancer * ALPHA FETOPROTEIN BLOOD TUMOR MARKER(Performed 08/03/2021) * PT-INR(Performed 08/03/2021) * CBC W/O DIFFERENTIAL(Performed 08/03/2021) * COMPREHENSIVE METABOLIC PANEL(Performed 08/03/2021) * US ABDOMEN LIMITED(Performed 03/19/2021) Performed for 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), Nonalcoholic steatohepatitis (RAYGOZA), Lower extremity edema * CBC W AUTO DIFFERENTIAL(Performed 01/09/2021) Performed for 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), Nonalcoholic steatohepatitis (RAYGOZA), Lower extremity edema * ALPHA FETOPROTEIN BLOOD TUMOR MARKER(Performed 01/09/2021) Performed for 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), Lower extremity edema * PT-INR(Performed 01/09/2021) Performed for 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), Lower extremity edema * COMPREHENSIVE METABOLIC PANEL(Performed 01/09/2021) Performed for 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), Lower extremity edema * US ABDOMEN LIMITED(Performed 09/19/2020) Performed for 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) * CBC W AUTO DIFFERENTIAL(Performed 09/05/2020) Performed for 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) * PT-INR(Performed 09/05/2020) Performed for 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) * COMPREHENSIVE METABOLIC PANEL(Performed 09/05/2020) Performed for 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) * ALPHA FETOPROTEIN BLOOD TUMOR MARKER(Performed 09/05/2020) Performed for 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) * [place] LIVER ELASTOGRAPHY(Performed 08/31/2020) Performed for 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), Metabolic syndrome * COMP MET PANEL (EXTERNAL RESULT ENTRY)(Performed 08/20/2020) * LIPID PROFILE (EXTERAL RESULT ENTRY)(Performed 08/20/2020) * TSH (EXTERNAL RESULT ENTRY)(Performed 08/20/2020) * CBC W DIFF (EXTERNAL RESULT ENTRY)(Performed 08/20/2020) * XR PELVIS 1 OR 2VW(Performed 08/05/2020) Performed for Arthralgia of hip, unspecified laterality * XR HIP RIGHT 2VW OR MORE(Performed 08/05/2020) Performed for Arthralgia of hip, unspecified laterality * PATHOLOGY TISSUE(Performed 07/03/2020) Performed for 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), Metabolic syndrome * [facility] EGD FLEX TRANSORAL DX(Performed 07/03/2020) Performed for 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), Metabolic syndrome * EGD(Performed 07/03/2020) * GLUCOSE - POINT OF CARE(Performed 07/03/2020) * US ABDOMEN LIMITED(Performed 03/19/2020) Performed for 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), Metabolic syndrome * PT-INR(Performed 02/20/2020) Performed for 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) * COMPREHENSIVE METABOLIC PANEL(Performed 02/20/2020) Performed for 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) * CBC W AUTO DIFFERENTIAL(Performed 02/20/2020) Performed for 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) * ALPHA FETOPROTEIN BLOOD TUMOR MARKER(Performed 02/20/2020) Performed for 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) * XR THORACIC SPINE 2VW(Performed 02/07/2020) Performed for Back pain, unspecified back location, unspecified back pain laterality, unspecified chronicity * XR LUMBAR SPINE 2 OR 3VW(Performed 02/07/2020) Performed for Back pain, unspecified back location, unspecified back pain laterality, unspecified chronicity * CARDIAC EKG ORDER(Performed 02/01/2020) * CARDIAC EKG ORDER(Performed 02/01/2020) * CARDIAC EKG ORDER(Performed 01/19/2020) * XR THORACIC SPINE 2VW(Performed 01/03/2020) Performed for Back pain, unspecified back location, unspecified back pain laterality, unspecified chronicity * BASIC METABOLIC PANEL (CALCIUM TOTAL)(Performed 08/27/2019) Performed for 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) * DIFFERENTIAL MANUAL REFLXED III(Performed 08/20/2019) * PT-INR(Performed 08/20/2019) Performed for 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) * ALPHA FETOPROTEIN BLOOD TUMOR MARKER(Performed 08/20/2019) Performed for 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) * COMPREHENSIVE METABOLIC PANEL(Performed 08/20/2019) Performed for 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) * CBC W AUTO DIFFERENTIAL(Performed 08/20/2019) Performed for 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) * XR PELVIS 1 OR 2VW(Performed 06/19/2019) Performed for Surgical follow-up care * XR HIP RIGHT 2VW OR MORE(Performed 06/19/2019) Performed for Surgical follow-up care * XR PELVIS 1 OR 2VW(Performed 05/22/2019) Performed for Surgical follow-up care * XR HIP RIGHT 2VW OR MORE(Performed 05/22/2019) Performed for Surgical follow-up care * US ABDOMEN LIMITED(Performed 05/16/2019) Performed for 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), Metabolic syndrome * CARDIAC RHYTHM STRIP ORDER(Performed 05/07/2019) * BASIC METABOLIC PANEL (CALCIUM TOTAL)(Performed 05/06/2019) * CBC W AUTO DIFFERENTIAL(Performed 05/06/2019) * PLATELET COUNT AUTO(Performed 05/05/2019) * BASIC METABOLIC PANEL (CALCIUM TOTAL)(Performed 05/05/2019) * BASIC METABOLIC PANEL (CALCIUM TOTAL)(Performed 05/04/2019) * VANCOMYCIN LEVEL TROUGH(Performed 05/03/2019) * CBC W AUTO DIFFERENTIAL(Performed 05/03/2019) * BASIC METABOLIC PANEL (CALCIUM TOTAL)(Performed 05/03/2019) * GLUCOSE - POINT OF CARE(Performed 05/02/2019) * CULTURE FLUID+GRAM STAIN(Performed 05/02/2019) Performed for Diagnosis unknown * CULTURE ANAEROBE(Performed 05/02/2019) Performed for Diagnosis unknown * PERIPHERAL IV NOTE(Performed 05/02/2019) * PREPARE RBC LEUKOREDUCED UNIT(Performed 05/02/2019) * CULTURE FLUID+GRAM STAIN(Performed 05/02/2019) Performed for Diagnosis unknown * CULTURE ANAEROBE(Performed 05/02/2019) Performed for Diagnosis unknown * TYPE + SCREEN PANEL(Performed 05/02/2019) * ENDOTRACHEAL TUBE NOTE(Performed 05/02/2019) * [facility] NEG PRESS WND TX PER SESS; TOT SURF </= 50 SQ CM(Performed 05/02/2019) Performed for Diagnosis unknown * [facility] INCIS/DRAIN PELVIS/HIP,DEEP ABSCESS(Performed 05/02/2019) Performed for Diagnosis unknown * COMPREHENSIVE METABOLIC PANEL(Performed 05/02/2019) * CBC W AUTO DIFFERENTIAL(Performed 05/02/2019) * ECHOCARDIOGRAM 2D WITH DOPPLER(Performed 05/01/2019) Performed for 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, subsequent encounter, Coronary artery disease without angina pectoris, unspecified vessel or lesion type, unspecified whether telida or transplanted heart, Chronic atrial fibrillation (HCC) * EKG 12-LEAD(Performed 05/01/2019) Performed for 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, subsequent encounter * XR CHEST 1VW PORTABLE(Performed 05/01/2019) Performed for 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, subsequent encounter, Coronary artery disease without angina pectoris, unspecified vessel or lesion type, unspecified whether telida or transplanted heart * VANCOMYCIN LEVEL TROUGH(Performed 05/01/2019) * BASIC METABOLIC PANEL (CALCIUM TOTAL)(Performed 05/01/2019) * CBC W AUTO DIFFERENTIAL(Performed 05/01/2019) * PT EVAL AND TREAT(Performed 04/30/2019) * OT EVAL AND TREAT(Performed 04/30/2019) * PT-INR(Performed 04/30/2019) * COMPREHENSIVE METABOLIC PANEL(Performed 04/30/2019) * CBC W AUTO DIFFERENTIAL(Performed 04/30/2019) * CULTURE ABSCESS+GRAM STAIN(Performed 04/29/2019) * CULTURE VRE(Performed 04/29/2019) * CULTURE MRSA(Performed 04/29/2019) * CULTURE BLOOD(Performed 04/29/2019) * CULTURE BLOOD(Performed 04/29/2019) * CULTURE MRSA(Performed 04/29/2019) * XR HIP RIGHT 2VW OR MORE(Performed 04/29/2019) Performed for 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, subsequent encounter * BASIC METABOLIC PANEL (CALCIUM TOTAL)(Performed 04/29/2019) * VANCOMYCIN LEVEL RANDOM(Performed 04/29/2019) * ALPHA FETOPROTEIN BLOOD TUMOR MARKER(Performed 04/24/2019) Performed for 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), Metabolic syndrome * ERYTHROCYTE SEDIMENTATION RATE(Performed 04/24/2019) Performed for 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, initial encounter (HCC) * C-REACTIVE PROTEIN(Performed 04/24/2019) Performed for 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, initial encounter (HCC) * XR HIP RIGHT 2VW OR MORE(Performed 02/27/2019) Performed for Arthralgia of hip, unspecified laterality * XR PELVIS 1 OR 2VW(Performed 02/27/2019) Performed for Arthralgia of hip, unspecified laterality * CARDIAC RHYTHM STRIP ORDER(Performed 02/27/2019) * VANCOMYCIN LEVEL TROUGH(Performed 02/15/2019) * PT-INR(Performed 02/15/2019) * BASIC METABOLIC PANEL (CALCIUM TOTAL)(Performed 02/15/2019) * CBC W AUTO DIFFERENTIAL(Performed 02/15/2019) * PT-INR(Performed 02/14/2019) * BASIC METABOLIC PANEL (CALCIUM TOTAL)(Performed 02/14/2019) * CBC W AUTO DIFFERENTIAL(Performed 02/14/2019) * XR CHEST POST PROCEDURE(Performed 02/13/2019) Performed for PICC (peripherally inserted central catheter) in place * PT-INR(Performed 02/13/2019) * BASIC METABOLIC PANEL (CALCIUM TOTAL)(Performed 02/13/2019) * CBC W AUTO DIFFERENTIAL(Performed 02/13/2019) * HOME CPAP/BIPAP FOR HOSP USE: NOCTURNAL 02(Performed 02/13/2019) * VANCOMYCIN LEVEL TROUGH(Performed 02/12/2019) * PT-INR(Performed 02/12/2019) * BASIC METABOLIC PANEL (CALCIUM TOTAL)(Performed 02/12/2019) * CBC W AUTO DIFFERENTIAL(Performed 02/12/2019) * HOME CPAP/BIPAP FOR HOSP USE: NOCTURNAL 02(Performed 02/12/2019) * PT-INR(Performed 02/11/2019) * BASIC METABOLIC PANEL (CALCIUM TOTAL)(Performed 02/11/2019) * CBC W AUTO DIFFERENTIAL(Performed 02/11/2019) * BASIC METABOLIC PANEL (CALCIUM TOTAL)(Performed 02/10/2019) * CBC W AUTO DIFFERENTIAL(Performed 02/10/2019) * HOME CPAP/BIPAP FOR HOSP USE: NOCTURNAL 02(Performed 02/10/2019) * BASIC METABOLIC PANEL (CALCIUM TOTAL)(Performed 02/09/2019) * CBC W AUTO DIFFERENTIAL(Performed 02/09/2019) * HOME CPAP/BIPAP FOR HOSP USE: NOCTURNAL 02(Performed 02/09/2019) * ENDOTRACHEAL TUBE NOTE(Performed 02/08/2019) * [facility] CLOS SURG WND EXTEN/COMPLIC(Performed 02/08/2019) Performed for Diagnosis unknown * EXCISION BURSA (BURSECTOMY) TROCHANTERIC/HIP(Performed 02/08/2019) Performed for Diagnosis unknown * ARTHROPLASTY TOTAL HIP REVISION(Performed 02/08/2019) Performed for Diagnosis unknown * TYPE + SCREEN PANEL(Performed 02/08/2019) * BASIC METABOLIC PANEL (CALCIUM TOTAL)(Performed 02/08/2019) * CBC W AUTO DIFFERENTIAL(Performed 02/08/2019) * HOME CPAP/BIPAP FOR HOSP USE: NOCTURNAL 02(Performed 02/08/2019) * SLIDE SCAN HEMATOLOGY(Performed 02/07/2019) * VANCOMYCIN LEVEL RANDOM(Performed 02/07/2019) * CBC W AUTO DIFFERENTIAL(Performed 02/07/2019) * BASIC METABOLIC PANEL (CALCIUM TOTAL)(Performed 02/07/2019) * HOME CPAP/BIPAP FOR HOSP USE: NOCTURNAL 02(Performed 02/07/2019) * VANCOMYCIN LEVEL RANDOM(Performed 02/06/2019) * CBC W AUTO DIFFERENTIAL(Performed 02/06/2019) * BASIC METABOLIC PANEL (CALCIUM TOTAL)(Performed 02/06/2019) * HOME CPAP/BIPAP FOR HOSP USE: NOCTURNAL 02(Performed 02/06/2019) * CBC W AUTO DIFFERENTIAL(Performed 02/05/2019) * BASIC METABOLIC PANEL (CALCIUM TOTAL)(Performed 02/05/2019) * VANCOMYCIN LEVEL RANDOM(Performed 02/05/2019) * HOME CPAP/BIPAP FOR HOSP USE: NOCTURNAL 02(Performed 02/05/2019) * GLUCOSE - POINT OF CARE(Performed 02/04/2019) * VANCOMYCIN LEVEL TROUGH(Performed 02/04/2019) * GLUCOSE - POINT OF CARE(Performed 02/04/2019) * CULTURE WOUND+GRAM STAIN(Performed 02/04/2019) Performed for Diagnosis unknown * CULTURE ANAEROBE(Performed 02/04/2019) Performed for Diagnosis unknown * CULTURE TISSUE+GRAM STAIN(Performed 02/04/2019) Performed for Diagnosis unknown * CULTURE ANAEROBE(Performed 02/04/2019) Performed for Diagnosis unknown * ENDOTRACHEAL TUBE NOTE(Performed 02/04/2019) * [facility] NEG PRESS WND TX PER SESS; TOT SURF </= 50 SQ CM(Performed 02/04/2019) * [facility] INCIS/DRAIN PELVIS/HIP,DEEP ABSCESS(Performed 02/04/2019) * GLUCOSE - POINT OF CARE(Performed 02/04/2019) * PT PTT PANEL(Performed 02/04/2019) * CBC W/O DIFFERENTIAL(Performed 02/04/2019) * URINALYSIS REFLEX MICROSCOPIC REFLEX CULTURE(Performed 02/04/2019) * TYPE + SCREEN PANEL(Performed 02/04/2019) Performed for Other specified anemias * BASIC METABOLIC PANEL (CALCIUM TOTAL)(Performed 02/04/2019) * HOME CPAP/BIPAP FOR HOSP USE: NOCTURNAL 02(Performed 02/04/2019) * GLUCOSE - POINT OF CARE(Performed 02/03/2019) * GLUCOSE - POINT OF CARE(Performed 02/03/2019) * EKG 12-LEAD(Performed 02/03/2019) Performed for 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, initial encounter ([facility]) * GLUCOSE - POINT OF CARE(Performed 02/03/2019) * GLUCOSE - POINT OF CARE(Performed 02/03/2019) * XR FEMUR RIGHT 2VW(Performed 02/03/2019) Performed for 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, initial encounter ([facility]) * LACTIC ACID BLOOD(Performed 02/03/2019) * HEMOGLOBIN A1C(Performed 02/03/2019) * PT-INR(Performed 02/03/2019) * COMPREHENSIVE METABOLIC PANEL(Performed 02/03/2019) * CBC W AUTO DIFFERENTIAL(Performed 02/03/2019) * LACTIC ACID BLOOD(Performed 02/03/2019) * HOME CPAP/BIPAP FOR HOSP USE: NOCTURNAL 02(Performed 02/03/2019) * LACTIC ACID BLOOD(Performed 02/02/2019) * CULTURE BLOOD(Performed 02/02/2019) * CULTURE BLOOD(Performed 02/02/2019) * HOME CPAP/BIPAP FOR HOSP USE: NOCTURNAL 02(Performed 02/02/2019) * US ABDOMEN LIMITED(Performed 11/06/2018) Performed for 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) * PT-INR(Performed 10/10/2018) * CBC W AUTO DIFFERENTIAL(Performed 10/10/2018) * MITOCHONDRIAL ANTIBODY SCREEN(Performed 06/02/2018) Performed for Other cirrhosis of liver (HCC) * US ABDOMEN LIMITED(Performed 05/17/2018) Performed for Other cirrhosis of liver (HCC) * CARDIAC EKG ORDER(Performed 03/23/2018) * CARDIAC EKG ORDER(Performed 03/23/2018) * CARDIAC PROCEDURE ORDER(Performed 11/22/2017) * CARDIAC EKG ORDER(Performed 10/26/2017) * CARDIAC EKG ORDER(Performed 10/19/2017) * CARDIAC EKG ORDER(Performed 09/29/2017) * GLUCOSE - POINT OF CARE(Performed 09/19/2017) * RBC MORPHOLOGY(Performed 09/19/2017) * MAGNESIUM BLOOD(Performed 09/19/2017) * CBC W AUTO DIFFERENTIAL(Performed 09/19/2017) * BASIC METABOLIC PANEL (CALCIUM TOTAL)(Performed 09/19/2017) * PHOSPHORUS BLOOD(Performed 09/19/2017) * GLUCOSE - POINT OF CARE(Performed 09/18/2017) * XR CHEST 1VW PORTABLE(Performed 09/18/2017) Performed for Acute respiratory failure with hypoxia (HCC) * GLUCOSE - POINT OF CARE(Performed 09/18/2017) * MAGNESIUM BLOOD(Performed 09/18/2017) * PHOSPHORUS BLOOD(Performed 09/18/2017) * MAGNESIUM BLOOD(Performed 09/18/2017) * CBC W AUTO DIFFERENTIAL(Performed 09/18/2017) * BASIC METABOLIC PANEL (CALCIUM TOTAL)(Performed 09/18/2017) * GLUCOSE - POINT OF CARE(Performed 09/17/2017) * GLUCOSE - POINT OF CARE(Performed 09/17/2017) * RBC MORPHOLOGY(Performed 09/17/2017) * MAGNESIUM BLOOD(Performed 09/17/2017) * CBC W AUTO DIFFERENTIAL(Performed 09/17/2017) * BASIC METABOLIC PANEL (CALCIUM TOTAL)(Performed 09/17/2017) * PHOSPHORUS BLOOD(Performed 09/17/2017) * GLUCOSE - POINT OF CARE(Performed 09/16/2017) * GLUCOSE - POINT OF CARE(Performed 09/16/2017) * GLUCOSE - POINT OF CARE(Performed 09/16/2017) * GLUCOSE - POINT OF CARE(Performed 09/16/2017) * RBC MORPHOLOGY(Performed 09/16/2017) * CBC W AUTO DIFFERENTIAL(Performed 09/16/2017) * MAGNESIUM BLOOD(Performed 09/16/2017) * BASIC METABOLIC PANEL (CALCIUM TOTAL)(Performed 09/16/2017) * PHOSPHORUS BLOOD(Performed 09/16/2017) * GLUCOSE - POINT OF CARE(Performed 09/16/2017) * GLUCOSE - POINT OF CARE(Performed 09/15/2017) * GLUCOSE - POINT OF CARE(Performed 09/15/2017) * ESOPHAGOGASTRODUODENOSCOPY (EGD) DIAGNOSTIC(Performed 09/15/2017) Performed for Dysphasia * EGD(Performed 09/15/2017) * GLUCOSE - POINT OF CARE(Performed 09/15/2017) * XR CHEST 1VW PORTABLE(Performed 09/15/2017) Performed for Hypoxemia * TYPE + SCREEN PANEL(Performed 09/15/2017) * DIFFERENTIAL MANUAL(Performed 09/15/2017) * B-TYPE NATRIURETIC PEPTIDE(Performed 09/15/2017) * PT-INR [facility](Performed 09/15/2017) * CBC W AUTO DIFFERENTIAL(Performed 09/15/2017) * MAGNESIUM BLOOD(Performed 09/15/2017) * BASIC METABOLIC PANEL (CALCIUM TOTAL)(Performed 09/15/2017) * GLUCOSE - POINT OF CARE(Performed 09/15/2017) * GLUCOSE - POINT OF CARE(Performed 09/14/2017) * GLUCOSE - POINT OF CARE(Performed 09/14/2017) * GLUCOSE - POINT OF CARE(Performed 09/14/2017) * GLUCOSE - POINT OF CARE(Performed 09/14/2017) * XR CHEST 1VW PORTABLE(Performed 09/14/2017) Performed for Hypoxemia, Pleural effusion, not elsewhere classified, Extradural and subdural abscess, unspecified (HCC) * DIFFERENTIAL MANUAL(Performed 09/14/2017) * CBC W AUTO DIFFERENTIAL(Performed 09/14/2017) * MAGNESIUM BLOOD(Performed 09/14/2017) * BASIC METABOLIC PANEL (CALCIUM TOTAL)(Performed 09/14/2017) * GLUCOSE - POINT OF CARE(Performed 09/14/2017) * XR ABDOMEN KUB(Performed 09/13/2017) Performed for Uses feeding tube * GLUCOSE - POINT OF CARE(Performed 09/13/2017) * TRACHEOTOMY/TRACHEOSTOMY(Performed 09/13/2017) Performed for Chronic respiratory failure with hypoxia (HCC) * GLUCOSE - POINT OF CARE(Performed 09/13/2017) * GLUCOSE - POINT OF CARE(Performed 09/13/2017) * XR CHEST 1VW PORTABLE(Performed 09/13/2017) Performed for Hypoxemia, Pleural effusion, not elsewhere classified * RBC MORPHOLOGY(Performed 09/13/2017) * CBC W AUTO DIFFERENTIAL(Performed 09/13/2017) * MAGNESIUM BLOOD(Performed 09/13/2017) * BASIC METABOLIC PANEL (CALCIUM TOTAL)(Performed 09/13/2017) * GLUCOSE - POINT OF CARE(Performed 09/12/2017) * GLUCOSE - POINT OF CARE(Performed 09/12/2017) * GLUCOSE - POINT OF CARE(Performed 09/12/2017) * DIFFERENTIAL MANUAL(Performed 09/12/2017) * CBC W AUTO DIFFERENTIAL(Performed 09/12/2017) * MAGNESIUM BLOOD(Performed 09/12/2017) * BASIC METABOLIC PANEL (CALCIUM TOTAL)(Performed 09/12/2017) * GLUCOSE - POINT OF CARE(Performed 09/12/2017) * GLUCOSE - POINT OF CARE(Performed 09/12/2017) * GLUCOSE - POINT OF CARE(Performed 09/11/2017) * GLUCOSE - POINT OF CARE(Performed 09/11/2017) * TYPE + SCREEN PANEL(Performed 09/11/2017) * XR CHEST 1VW(Performed 09/11/2017) Performed for Hypoxemia, Pleural effusion, not elsewhere classified, Severe sepsis without septic shock (CODE) (HCC) * GLUCOSE - POINT OF CARE(Performed 09/11/2017) * RBC MORPHOLOGY(Performed 09/11/2017) * B-TYPE NATRIURETIC PEPTIDE(Performed 09/11/2017) * PT-INR [facility](Performed 09/11/2017) * CBC W AUTO DIFFERENTIAL(Performed 09/11/2017) * MAGNESIUM BLOOD(Performed 09/11/2017) * BASIC METABOLIC PANEL (CALCIUM TOTAL)(Performed 09/11/2017) * GLUCOSE - POINT OF CARE(Performed 09/11/2017) * GLUCOSE - POINT OF CARE(Performed 09/10/2017) * GLUCOSE - POINT OF CARE(Performed 09/10/2017) * BLOOD GASES ARTERIAL(Performed 09/10/2017) * GLUCOSE - POINT OF CARE(Performed 09/10/2017) * PTT [facility](Performed 09/10/2017) * RBC MORPHOLOGY(Performed 09/10/2017) * BASIC METABOLIC PANEL (CALCIUM TOTAL)(Performed 09/10/2017) * CBC W AUTO DIFFERENTIAL(Performed 09/10/2017) * GLUCOSE ACCUCHECK(Performed 09/09/2017) * GLUCOSE ACCUCHECK(Performed 09/09/2017) * CULTURE AEROBIC(Performed 09/09/2017) * XR CHEST 1VW PORTABLE(Performed 09/09/2017) * PT EVAL AND TREAT(Performed 09/09/2017) * OT EVAL AND TREAT(Performed 09/09/2017) * GLUCOSE ACCUCHECK(Performed 09/09/2017) * BASIC METABOLIC PANEL (CALCIUM TOTAL)(Performed 09/09/2017) * BLOOD GASES ARTERIAL(Performed 09/09/2017) * GLUCOSE ACCUCHECK(Performed 09/09/2017) * XR CHEST 1VW PORTABLE(Performed 09/09/2017) * DIFFERENTIAL MANUAL(Performed 09/09/2017) * CBC W AUTO DIFFERENTIAL(Performed 09/09/2017) * PT-INR [facility](Performed 09/09/2017) * BLOOD GASES ARTERIAL(Performed 09/09/2017) * BASIC METABOLIC PANEL (CALCIUM TOTAL)(Performed 09/09/2017) * CBC W AUTO DIFFERENTIAL(Performed 09/09/2017) * XR CHEST 1VW PORTABLE(Performed 09/09/2017) * GLUCOSE ACCUCHECK(Performed 09/09/2017) * GLUCOSE ACCUCHECK(Performed 09/08/2017) * GLUCOSE ACCUCHECK(Performed 09/08/2017) * [facility]DH BODY FLUID(Performed 09/08/2017) * GLUCOSE BODY FLUID(Performed 09/08/2017) * PROTEIN FLUID(Performed 09/08/2017) * CELL COUNT FLUID(Performed 09/08/2017) * DIFFERENTIAL MANUAL FLUID(Performed 09/08/2017) * CELL COUNT W DIFFERENTIAL FLUID(Performed 09/08/2017) * PH FLUID(Performed 09/08/2017) * CULTURE AEROBIC(Performed 09/08/2017) * XR CHEST 1VW PORTABLE(Performed 09/08/2017) * XR CHEST 1VW PORTABLE(Performed 09/08/2017) * GLUCOSE ACCUCHECK(Performed 09/08/2017) * GLUCOSE ACCUCHECK(Performed 09/08/2017) * GLUCOSE ACCUCHECK(Performed 09/07/2017) * CT CHEST WO CONTRAST(Performed 09/07/2017) * GLUCOSE ACCUCHECK(Performed 09/07/2017) * GLUCOSE ACCUCHECK(Performed 09/07/2017) * XR CHEST 1VW PORTABLE(Performed 09/07/2017) * PTT [facility](Performed 09/07/2017) * PT-INR [facility](Performed 09/07/2017) * PROCALCITONIN LEVEL(Performed 09/07/2017) * BASIC METABOLIC PANEL (CALCIUM TOTAL)(Performed 09/07/2017) * MAGNESIUM BLOOD(Performed 09/07/2017) * PHOSPHORUS BLOOD(Performed 09/07/2017) * CBC W AUTO DIFFERENTIAL(Performed 09/07/2017) * CBC W AUTO DIFFERENTIAL(Performed 09/07/2017) * GLUCOSE ACCUCHECK(Performed 09/07/2017) * EKG 12-LEAD(Performed 09/07/2017) * XR ABDOMEN KUB PORTABLE(Performed 09/06/2017) * BLOOD GASES ART COMPLETE [facility] OR(Performed 09/06/2017) * GLUCOSE ACCUCHECK(Performed 09/06/2017) * XR CHEST 1VW PORTABLE(Performed 09/06/2017) * CULTURE LEGIONELLA(Performed 09/06/2017) * CULTURE AEROBIC(Performed 09/06/2017) * CULTURE BLOOD(Performed 09/06/2017) * CULTURE BLOOD(Performed 09/06/2017) * BLOOD GASES ART COMPLETE [facility] OR(Performed 09/06/2017) * DIGOXIN LEVEL(Performed 09/06/2017) * PTT [facility](Performed 09/06/2017) * PT-INR [facility](Performed 09/06/2017) * TROPONIN I(Performed 09/06/2017) * COMPREHENSIVE METABOLIC PANEL(Performed 09/06/2017) * CBC W AUTO DIFFERENTIAL(Performed 09/06/2017) * LACTIC ACID BLOOD(Performed 09/06/2017) * CBC W AUTO DIFFERENTIAL(Performed 09/06/2017) * XR CHEST 1VW PORTABLE(Performed 09/06/2017) * EKG 12-LEAD(Performed 09/06/2017) * GLUCOSE ACCUCHECK(Performed 09/04/2017) * GLUCOSE ACCUCHECK(Performed 09/04/2017) * GLUCOSE ACCUCHECK(Performed 09/04/2017) * CBC W AUTO DIFFERENTIAL(Performed 09/04/2017) * MAGNESIUM BLOOD(Performed 09/04/2017) * PHOSPHORUS BLOOD(Performed 09/04/2017) * COMPREHENSIVE METABOLIC PANEL(Performed 09/04/2017) * CBC W AUTO DIFFERENTIAL(Performed 09/04/2017) * GLUCOSE ACCUCHECK(Performed 09/04/2017) * GLUCOSE ACCUCHECK(Performed 09/04/2017) * GLUCOSE ACCUCHECK(Performed 09/03/2017) * GLUCOSE ACCUCHECK(Performed 09/03/2017) * GLUCOSE ACCUCHECK(Performed 09/03/2017) * GLUCOSE ACCUCHECK(Performed 09/03/2017) * COMPREHENSIVE METABOLIC PANEL(Performed 09/03/2017) * MAGNESIUM BLOOD(Performed 09/03/2017) * PHOSPHORUS BLOOD(Performed 09/03/2017) * CBC W AUTO DIFFERENTIAL(Performed 09/03/2017) * CBC W AUTO DIFFERENTIAL(Performed 09/03/2017) * GLUCOSE ACCUCHECK(Performed 09/03/2017) * GLUCOSE ACCUCHECK(Performed 09/02/2017) * GLUCOSE ACCUCHECK(Performed 09/02/2017) * GLUCOSE ACCUCHECK(Performed 09/02/2017) * GLUCOSE ACCUCHECK(Performed 09/02/2017) * GLUCOSE ACCUCHECK(Performed 09/02/2017) * XR CHEST 1VW PORTABLE(Performed 09/02/2017) * COMPREHENSIVE METABOLIC PANEL(Performed 09/02/2017) * PHOSPHORUS BLOOD(Performed 09/02/2017) * MAGNESIUM BLOOD(Performed 09/02/2017) * CBC W AUTO DIFFERENTIAL(Performed 09/02/2017) * LDH BLOOD(Performed 09/02/2017) * CBC W AUTO DIFFERENTIAL(Performed 09/02/2017) * GLUCOSE ACCUCHECK(Performed 09/02/2017) * GLUCOSE ACCUCHECK(Performed 09/02/2017) * GLUCOSE ACCUCHECK(Performed 09/01/2017) * DIFFERENTIAL MANUAL FLUID(Performed 09/01/2017) * CELL COUNT FLUID(Performed 09/01/2017) * PROTEIN FLUID(Performed 09/01/2017) * LDH BODY FLUID(Performed 09/01/2017) * PH FLUID(Performed 09/01/2017) * CULTURE AEROBIC(Performed 09/01/2017) * CELL COUNT W DIFFERENTIAL FLUID(Performed 09/01/2017) * CT THORACENTESIS(Performed 09/01/2017) * GLUCOSE ACCUCHECK(Performed 09/01/2017) * GLUCOSE ACCUCHECK(Performed 09/01/2017) * COMPREHENSIVE METABOLIC PANEL(Performed 09/01/2017) * PHOSPHORUS BLOOD(Performed 09/01/2017) * MAGNESIUM BLOOD(Performed 09/01/2017) * PT-INR [facility](Performed 09/01/2017) * CBC W AUTO DIFFERENTIAL(Performed 09/01/2017) * CBC W AUTO DIFFERENTIAL(Performed 09/01/2017) * GLUCOSE ACCUCHECK(Performed 09/01/2017) * GLUCOSE ACCUCHECK(Performed 09/01/2017) * CREATININE URINE RANDOM(Performed 09/01/2017) * SODIUM URINE RANDOM(Performed 09/01/2017) * GLUCOSE ACCUCHECK(Performed 08/31/2017) * GLUCOSE ACCUCHECK(Performed 08/31/2017) * HEMOGLOBIN(Performed 08/31/2017) * HEMATOCRIT(Performed 08/31/2017) * XR CHEST 1VW PORTABLE(Performed 08/31/2017) * GLUCOSE ACCUCHECK(Performed 08/31/2017) * CROSSMATCH RBC LEUKOREDUCED(Performed 08/31/2017) * GLUCOSE ACCUCHECK(Performed 08/31/2017) * TYPE + SCREEN PANEL(Performed 08/31/2017) * CBC W AUTO DIFFERENTIAL(Performed 08/31/2017) * CBC W AUTO DIFFERENTIAL(Performed 08/31/2017) * COMPREHENSIVE METABOLIC PANEL(Performed 08/31/2017) * PHOSPHORUS BLOOD(Performed 08/31/2017) * MAGNESIUM BLOOD(Performed 08/31/2017) * PT-INR SLH(Performed 08/31/2017) * GLUCOSE ACCUCHECK(Performed 08/31/2017) * GLUCOSE ACCUCHECK(Performed 08/30/2017) * XR CHEST 1VW PORTABLE(Performed 08/30/2017) * GLUCOSE ACCUCHECK(Performed 08/30/2017) * GLUCOSE ACCUCHECK(Performed 08/30/2017) * XR CHEST 1VW PORTABLE(Performed 08/30/2017) * GLUCOSE ACCUCHECK(Performed 08/30/2017) * GLUCOSE ACCUCHECK(Performed 08/30/2017) * PT-INR SLH(Performed 08/30/2017) * DIFFERENTIAL MANUAL(Performed 08/30/2017) * CBC W AUTO DIFFERENTIAL(Performed 08/30/2017) * COMPREHENSIVE METABOLIC PANEL(Performed 08/30/2017) * PHOSPHORUS BLOOD(Performed 08/30/2017) * MAGNESIUM BLOOD(Performed 08/30/2017) * CBC W AUTO DIFFERENTIAL(Performed 08/30/2017) * GLUCOSE ACCUCHECK(Performed 08/30/2017) * BASIC METABOLIC PANEL (CALCIUM TOTAL)(Performed 08/30/2017) * GLUCOSE ACCUCHECK(Performed 08/29/2017) * GLUCOSE ACCUCHECK(Performed 08/29/2017) * XR ABDOMEN KUB PORTABLE(Performed 08/29/2017) * GLUCOSE ACCUCHECK(Performed 08/29/2017) * GLUCOSE ACCUCHECK(Performed 08/29/2017) * XR ABDOMEN KUB PORTABLE(Performed 08/29/2017) * GLUCOSE ACCUCHECK(Performed 08/29/2017) * CBC W AUTO DIFFERENTIAL(Performed 08/29/2017) * COMPREHENSIVE METABOLIC PANEL(Performed 08/29/2017) * PHOSPHORUS BLOOD(Performed 08/29/2017) * MAGNESIUM BLOOD(Performed 08/29/2017) * PT-INR SLH(Performed 08/29/2017) * CBC W AUTO DIFFERENTIAL(Performed 08/29/2017) * GLUCOSE ACCUCHECK(Performed 08/28/2017) * GLUCOSE ACCUCHECK(Performed 08/28/2017) * GLUCOSE ACCUCHECK(Performed 08/28/2017) * GLUCOSE ACCUCHECK(Performed 08/28/2017) * XR CHEST 1VW PORTABLE(Performed 08/28/2017) * LACTIC ACID BLOOD(Performed 08/28/2017) * GLUCOSE ACCUCHECK(Performed 08/28/2017) * PT-INR SL[facility](Performed 08/28/2017) * MAGNESIUM BLOOD(Performed 08/28/2017) * COMPREHENSIVE METABOLIC PANEL(Performed 08/28/2017) * PHOSPHORUS BLOOD(Performed 08/28/2017) * CBC W AUTO DIFFERENTIAL(Performed 08/28/2017) * CBC W AUTO DIFFERENTIAL(Performed 08/28/2017) * GLUCOSE ACCUCHECK(Performed 08/28/2017) * GLUCOSE ACCUCHECK(Performed 08/27/2017) * GLUCOSE ACCUCHECK(Performed 08/27/2017) * XR ABDOMEN KUB PORTABLE(Performed 08/27/2017) * GLUCOSE ACCUCHECK(Performed 08/27/2017) * XR ABDOMEN KUB(Performed 08/27/2017) * CULTURE AEROBIC(Performed 08/27/2017) * BLOOD GASES ARTERIAL(Performed 08/27/2017) * XR CHEST 1VW PORTABLE(Performed 08/27/2017) * GLUCOSE ACCUCHECK(Performed 08/27/2017) * XR CHEST 1VW PORTABLE(Performed 08/27/2017) * CULTURE SPUTUM+GRAM STAIN(Performed 08/27/2017) * GLUCOSE ACCUCHECK(Performed 08/27/2017) * PROCALCITONIN LEVEL(Performed 08/27/2017) * PT-INR SLH(Performed 08/27/2017) * MAGNESIUM BLOOD(Performed 08/27/2017) * HEPATIC FUNCTION PANEL(Performed 08/27/2017) * COMPREHENSIVE METABOLIC PANEL(Performed 08/27/2017) * PHOSPHORUS BLOOD(Performed 08/27/2017) * DIFFERENTIAL MANUAL(Performed 08/27/2017) * CBC W AUTO DIFFERENTIAL(Performed 08/27/2017) * TYPE + SCREEN PANEL(Performed 08/27/2017) * LACTIC ACID BLOOD(Performed 08/27/2017) * CBC W AUTO DIFFERENTIAL(Performed 08/27/2017) * BLOOD GASES ARTERIAL(Performed 08/27/2017) * EKG 12-LEAD(Performed 08/27/2017) * LACTIC ACID BLOOD(Performed 08/26/2017) * CT CHEST ABDOMEN PELVIS W CONT(Performed 08/26/2017) * XR CHEST 1VW PORTABLE(Performed 08/26/2017) * CULTURE URINE(Performed 08/26/2017) * PTT SLH(Performed 08/26/2017) * PT-INR SLH(Performed 08/26/2017) * CK + CKMB PANEL(Performed 08/26/2017) * TROPONIN I(Performed 08/26/2017) * COMPREHENSIVE METABOLIC PANEL(Performed 08/26/2017) * DIFFERENTIAL MANUAL(Performed 08/26/2017) * CBC W AUTO DIFFERENTIAL(Performed 08/26/2017) * B-TYPE NATRIURETIC PEPTIDE(Performed 08/26/2017) * LACTIC ACID BLOOD(Performed 08/26/2017) * BLOOD GASES BRADY(Performed 08/26/2017) * URINALYSIS REFLEX TO MICROSCOPIC NO CULTURE(Performed 08/26/2017) * CBC W AUTO DIFFERENTIAL(Performed 08/26/2017) * CULTURE BLOOD(Performed 08/26/2017) * CULTURE BLOOD(Performed 08/26/2017) * EKG 12-LEAD(Performed 08/26/2017) * C-REACTIVE PROTEIN(Performed 08/15/2017) * HEPATIC FUNCTION PANEL(Performed 08/15/2017) * PHOSPHORUS BLOOD(Performed 08/15/2017) * MAGNESIUM BLOOD(Performed 08/15/2017) * BASIC METABOLIC PANEL (CALCIUM TOTAL)(Performed 08/15/2017) * CBC W AUTO DIFFERENTIAL(Performed 08/15/2017) * ERYTHROCYTE SEDIMENTATION RATE(Performed 08/15/2017) * CBC W AUTO DIFFERENTIAL(Performed 08/15/2017) * MRI BRAIN WWO CONTRAST(Performed 08/14/2017) * CULTURE BLOOD(Performed 08/14/2017) * CULTURE BLOOD(Performed 08/14/2017) * CBC W AUTO DIFFERENTIAL(Performed 08/14/2017) * PHOSPHORUS BLOOD(Performed 08/14/2017) * MAGNESIUM BLOOD(Performed 08/14/2017) * BASIC METABOLIC PANEL (CALCIUM TOTAL)(Performed 08/14/2017) * BLOOD GASES BRADY(Performed 08/14/2017) * CBC W AUTO DIFFERENTIAL(Performed 08/14/2017) * XR CHEST 1VW PORTABLE(Performed 08/14/2017) * XR CHEST 1VW PORTABLE(Performed 08/13/2017) * CBC W AUTO DIFFERENTIAL(Performed 08/13/2017) * CK BLOOD(Performed 08/13/2017) * PHOSPHORUS BLOOD(Performed 08/13/2017) * MAGNESIUM BLOOD(Performed 08/13/2017) * BASIC METABOLIC PANEL (CALCIUM TOTAL)(Performed 08/13/2017) * BLOOD GASES BRADY(Performed 08/13/2017) * CBC W AUTO DIFFERENTIAL(Performed 08/13/2017) * BLOOD GASES BRADY(Performed 08/12/2017) * BLOOD GASES BRADY(Performed 08/12/2017) * CBC W AUTO DIFFERENTIAL(Performed 08/12/2017) * PROCALCITONIN LEVEL(Performed 08/12/2017) * PHOSPHORUS BLOOD(Performed 08/12/2017) * MAGNESIUM BLOOD(Performed 08/12/2017) * BASIC METABOLIC PANEL (CALCIUM TOTAL)(Performed 08/12/2017) * CBC W AUTO DIFFERENTIAL(Performed 08/12/2017) * EKG 12-LEAD(Performed 08/12/2017) * URINALYSIS W/MICROSCOPIC NO CULTURE(Performed 08/11/2017) * CULTURE URINE(Performed 08/11/2017) * CULTURE ANAEROBE(Performed 08/11/2017) * CULTURE AEROBIC(Performed 08/11/2017) * CULTURE BLOOD(Performed 08/11/2017) * CULTURE BLOOD(Performed 08/11/2017) * BLOOD GASES BRADY(Performed 08/11/2017) * XR ABDOMEN KUB PORTABLE(Performed 08/11/2017) * XR CHEST 1VW PORTABLE(Performed 08/11/2017) * CBC W AUTO DIFFERENTIAL(Performed 08/11/2017) * PROCALCITONIN LEVEL(Performed 08/11/2017) * PHOSPHORUS BLOOD(Performed 08/11/2017) * MAGNESIUM BLOOD(Performed 08/11/2017) * BASIC METABOLIC PANEL (CALCIUM TOTAL)(Performed 08/11/2017) * CBC W AUTO DIFFERENTIAL(Performed 08/11/2017) * PROCALCITONIN LEVEL(Performed 08/10/2017) * BLOOD GASES BRADY(Performed 08/10/2017) * XR CHEST 1VW PORTABLE(Performed 08/10/2017) * CBC W AUTO DIFFERENTIAL(Performed 08/10/2017) * PHOSPHORUS BLOOD(Performed 08/10/2017) * MAGNESIUM BLOOD(Performed 08/10/2017) * COMPREHENSIVE METABOLIC PANEL(Performed 08/10/2017) * CBC W AUTO DIFFERENTIAL(Performed 08/10/2017) * URINALYSIS W/MICROSCOPIC NO CULTURE(Performed 08/09/2017) * RESPIRATORY PATHOGEN PANEL BY PCR(Performed 08/09/2017) * STREP PNEUMONIAE ANTIGEN URINE(Performed 08/09/2017) * CULTURE URINE(Performed 08/09/2017) * CT LUMBAR SPINE WO CONTRAST(Performed 08/09/2017) * CT THORACIC SPINE WO CONTRAST(Performed 08/09/2017) * CT CHEST ABDOMEN PELVIS WO CONT(Performed 08/09/2017) * C DIFFICILE GDH AG + TOXIN A+B(Performed 08/09/2017) * XR CHEST 1VW PORTABLE(Performed 08/09/2017) * CULTURE URINE(Performed 08/09/2017) * URINALYSIS W/MICROSCOPIC NO CULTURE(Performed 08/09/2017) * CULTURE BLOOD(Performed 08/09/2017) * CK BLOOD(Performed 08/09/2017) * CULTURE BLOOD(Performed 08/09/2017) * CROSSMATCH RBC LEUKOREDUCED(Performed 08/09/2017) * XR CHEST 1VW PORTABLE(Performed 08/09/2017) * TYPE + SCREEN PANEL(Performed 08/09/2017) * LACTIC ACID BLOOD(Performed 08/09/2017) * C-REACTIVE PROTEIN(Performed 08/09/2017) * ERYTHROCYTE SEDIMENTATION RATE(Performed 08/09/2017) * PT-INR SLH(Performed 08/09/2017) * DIFFERENTIAL MANUAL(Performed 08/09/2017) * COMPREHENSIVE METABOLIC PANEL(Performed 08/09/2017) * PHOSPHORUS BLOOD(Performed 08/09/2017) * MAGNESIUM BLOOD(Performed 08/09/2017) * CBC W/O DIFFERENTIAL(Performed 08/09/2017) * COMPREHENSIVE METABOLIC PANEL(Performed 08/08/2017) * PHOSPHORUS BLOOD(Performed 08/08/2017) * MAGNESIUM BLOOD(Performed 08/08/2017) * CK BLOOD(Performed 08/08/2017) * CBC W/O DIFFERENTIAL(Performed 08/08/2017) * XR ABDOMEN KUB PORTABLE(Performed 08/07/2017) * GLUCOSE ACCUCHECK(Performed 08/07/2017) * CBC W/O DIFFERENTIAL(Performed 08/07/2017) * GLUCOSE ACCUCHECK(Performed 08/06/2017) * GLUCOSE ACCUCHECK(Performed 08/06/2017) * GLUCOSE ACCUCHECK(Performed 08/06/2017) * COMPREHENSIVE METABOLIC PANEL(Performed 08/06/2017) * PHOSPHORUS BLOOD(Performed 08/06/2017) * MAGNESIUM BLOOD(Performed 08/06/2017) * CBC W/O DIFFERENTIAL(Performed 08/06/2017) * GLUCOSE ACCUCHECK(Performed 08/06/2017) * GLUCOSE ACCUCHECK(Performed 08/05/2017) * GLUCOSE ACCUCHECK(Performed 08/05/2017) * XR LUMBAR SPINE 2 OR 3VW(Performed 08/05/2017) * GLUCOSE ACCUCHECK(Performed 08/05/2017) * XR THORACIC SPINE 2VW(Performed 08/05/2017) * XR CHEST 1VW PORTABLE(Performed 08/05/2017) * GLUCOSE ACCUCHECK(Performed 08/05/2017) * C-REACTIVE PROTEIN(Performed 08/05/2017) * COMPREHENSIVE METABOLIC PANEL(Performed 08/05/2017) * PHOSPHORUS BLOOD(Performed 08/05/2017) * MAGNESIUM BLOOD(Performed 08/05/2017) * CK BLOOD(Performed 08/05/2017) * ERYTHROCYTE SEDIMENTATION RATE(Performed 08/05/2017) * CBC W/O DIFFERENTIAL(Performed 08/05/2017) * CULTURE BLOOD(Performed 08/05/2017) * CULTURE URINE(Performed 08/04/2017) * CULTURE BLOOD(Performed 08/04/2017) * GLUCOSE ACCUCHECK(Performed 08/04/2017) * GLUCOSE ACCUCHECK(Performed 08/04/2017) * XR CHEST 1VW PORTABLE(Performed 08/04/2017) * VIRAL CULTURE MISC(Performed 08/04/2017) * CULTURE AFB+SMEAR(Performed 08/04/2017) * CULTURE BRONCHOALVEOLAR LAVAGE QNT+GRAM STAIN(Performed 08/04/2017) * DIFFERENTIAL MANUAL FLUID(Performed 08/04/2017) * CELL COUNT FLUID(Performed 08/04/2017) * RESPIRATORY PATHOGEN PANEL BY PCR(Performed 08/04/2017) * CELL COUNT W DIFFERENTIAL FLUID(Performed 08/04/2017) * VIRAL CULTURE MISC(Performed 08/04/2017) * CULTURE AFB+SMEAR(Performed 08/04/2017) * CULTURE FUNGUS OTHER+FUNGUS SMEAR(Performed 08/04/2017) * CULTURE LEGIONELLA(Performed 08/04/2017) * CULTURE AEROBIC(Performed 08/04/2017) * GLUCOSE ACCUCHECK(Performed 08/04/2017) * GLUCOSE ACCUCHECK(Performed 08/04/2017) * XR CHEST 1VW PORTABLE(Performed 08/04/2017) * COMPREHENSIVE METABOLIC PANEL(Performed 08/04/2017) * PHOSPHORUS BLOOD(Performed 08/04/2017) * MAGNESIUM BLOOD(Performed 08/04/2017) * B-TYPE NATRIURETIC PEPTIDE(Performed 08/04/2017) * CBC W/O DIFFERENTIAL(Performed 08/04/2017) * GLUCOSE ACCUCHECK(Performed 08/03/2017) * GLUCOSE ACCUCHECK(Performed 08/03/2017) * GLUCOSE ACCUCHECK(Performed 08/03/2017) * GLUCOSE ACCUCHECK(Performed 08/03/2017) * CBC W/O DIFFERENTIAL(Performed 08/03/2017) * COMPREHENSIVE METABOLIC PANEL(Performed 08/03/2017) * PHOSPHORUS BLOOD(Performed 08/03/2017) * MAGNESIUM BLOOD(Performed 08/03/2017) * XR CHEST 2VW INSPIR EXPIRATION(Performed 08/02/2017) * GLUCOSE ACCUCHECK(Performed 08/02/2017) * XR CHEST 2VW INSPIR EXPIRATION(Performed 08/02/2017) * DIFFERENTIAL MANUAL FLUID(Performed 08/02/2017) * CELL COUNT FLUID(Performed 08/02/2017) * CULTURE ANAEROBE(Performed 08/02/2017) * CULTURE AEROBIC(Performed 08/02/2017) * CULTURE FUNGUS OTHER+FUNGUS SMEAR(Performed 08/02/2017) * IR PLEURAL DRAIN(Performed 08/02/2017) * GLUCOSE ACCUCHECK(Performed 08/02/2017) * CULTURE BLOOD(Performed 08/02/2017) * CULTURE BLOOD(Performed 08/02/2017) * GLUCOSE ACCUCHECK(Performed 08/02/2017) * CBC W/O DIFFERENTIAL(Performed 08/02/2017) * COMPREHENSIVE METABOLIC PANEL(Performed 08/02/2017) * PHOSPHORUS BLOOD(Performed 08/02/2017) * MAGNESIUM BLOOD(Performed 08/02/2017) * CK BLOOD(Performed 08/02/2017) * GLUCOSE ACCUCHECK(Performed 08/01/2017) * GLUCOSE ACCUCHECK(Performed 08/01/2017) * GLUCOSE ACCUCHECK(Performed 08/01/2017) * LACTIC ACID BLOOD(Performed 08/01/2017) * GLUCOSE ACCUCHECK(Performed 08/01/2017) * MAGNESIUM BLOOD(Performed 08/01/2017) * COMPREHENSIVE METABOLIC PANEL(Performed 08/01/2017) * PHOSPHORUS BLOOD(Performed 08/01/2017) * CBC W/O DIFFERENTIAL(Performed 08/01/2017) * GLUCOSE ACCUCHECK(Performed 07/31/2017) * GLUCOSE ACCUCHECK(Performed 07/31/2017) * GLUCOSE ACCUCHECK(Performed 07/31/2017) * CULTURE BLOOD(Performed 07/31/2017) * CULTURE BLOOD(Performed 07/31/2017) * CT CHEST WO CONTRAST(Performed 07/31/2017) * GLUCOSE ACCUCHECK(Performed 07/31/2017) * GLUCOSE ACCUCHECK(Performed 07/31/2017) * MAGNESIUM BLOOD(Performed 07/31/2017) * COMPREHENSIVE METABOLIC PANEL(Performed 07/31/2017) * PHOSPHORUS BLOOD(Performed 07/31/2017) * CBC W/O DIFFERENTIAL(Performed 07/31/2017) * XR CHEST 1VW PORTABLE(Performed 07/31/2017) * GLUCOSE ACCUCHECK(Performed 07/31/2017) * GLUCOSE ACCUCHECK(Performed 07/31/2017) * GLUCOSE ACCUCHECK(Performed 07/30/2017) * CT HEAD WO CONTRAST(Performed 07/30/2017) * GLUCOSE ACCUCHECK(Performed 07/30/2017) * GLUCOSE ACCUCHECK(Performed 07/30/2017) * XR CHEST 1VW PORTABLE(Performed 07/30/2017) * XR ABDOMEN KUB PORTABLE(Performed 07/30/2017) * GLUCOSE ACCUCHECK(Performed 07/30/2017) * CULTURE BLOOD(Performed 07/30/2017) * CK BLOOD(Performed 07/30/2017) * CULTURE BLOOD(Performed 07/30/2017) * COMPREHENSIVE METABOLIC PANEL(Performed 07/30/2017) * MAGNESIUM BLOOD(Performed 07/30/2017) * PHOSPHORUS BLOOD(Performed 07/30/2017) * PT-INR SLH(Performed 07/30/2017) * CBC W/O DIFFERENTIAL(Performed 07/30/2017) * LACTIC ACID BLOOD(Performed 07/30/2017) * BLOOD GASES ARTERIAL(Performed 07/30/2017) * XR CHEST 1VW PORTABLE(Performed 07/29/2017) * XR ABDOMEN KUB PORTABLE(Performed 07/29/2017) * GLUCOSE ACCUCHECK(Performed 07/29/2017) * XR CHEST 1VW PORTABLE(Performed 07/29/2017) * GLUCOSE ACCUCHECK(Performed 07/29/2017) * XR CHEST 1VW PORTABLE(Performed 07/29/2017) * XR ABDOMEN KUB PORTABLE(Performed 07/29/2017) * CBC W/O DIFFERENTIAL(Performed 07/29/2017) * BASIC METABOLIC PANEL (CALCIUM TOTAL)(Performed 07/29/2017) * FL ADAM SURGERY(Performed 07/29/2017) * SODIUM WHOLE BLOOD(Performed 07/29/2017) * LACTIC ACID WHOLE BLOOD(Performed 07/29/2017) * GLUCOSE WHOLE BLOOD(Performed 07/29/2017) * POTASSIUM WHOLE BLD(Performed 07/29/2017) * CHLORIDE WHOLE BLOOD(Performed 07/29/2017) * CALCIUM IONIZED WHOLE BLOOD(Performed 07/29/2017) * BLOOD GASES ARTERIAL(Performed 07/29/2017) * CULTURE TISSUE+GRAM STAIN(Performed 07/29/2017) * CULTURE AEROBIC(Performed 07/29/2017) * CULTURE ANAEROBE(Performed 07/29/2017) * CALCIUM IONIZED WHOLE BLOOD(Performed 07/29/2017) * BLOOD GASES ARTERIAL(Performed 07/29/2017) * SODIUM WHOLE BLOOD(Performed 07/29/2017) * LACTIC ACID WHOLE BLOOD(Performed 07/29/2017) * GLUCOSE WHOLE BLOOD(Performed 07/29/2017) * POTASSIUM WHOLE BLD(Performed 07/29/2017) * CHLORIDE WHOLE BLOOD(Performed 07/29/2017) * GLUCOSE ACCUCHECK(Performed 07/29/2017) * CBC W/O DIFFERENTIAL(Performed 07/29/2017) * COMPREHENSIVE METABOLIC PANEL(Performed 07/29/2017) * PHOSPHORUS BLOOD(Performed 07/29/2017) * MAGNESIUM BLOOD(Performed 07/29/2017) * CULTURE BLOOD(Performed 07/29/2017) * CULTURE BLOOD(Performed 07/29/2017) * METHICILLIN RAPID TEST(Performed 07/29/2017) * PTT SLH(Performed 07/29/2017) * PT-INR SLH(Performed 07/29/2017) * TYPE + SCREEN PANEL(Performed 07/29/2017) * GLUCOSE ACCUCHECK(Performed 07/28/2017) * CYTOLOGY NON-DIGITAL OPERATIONS ANALYST PANEL (STL)(Performed 07/28/2017) * DIFFERENTIAL MANUAL FLUID(Performed 07/28/2017) * CELL COUNT W DIFFERENTIAL FLUID(Performed 07/28/2017) * CELL COUNT FLUID(Performed 07/28/2017) * PROTEIN FLUID(Performed 07/28/2017) * LDH BODY FLUID(Performed 07/28/2017) * CHOLESTEROL FLUID(Performed 07/28/2017) * TRIGLYCERIDES FLUID(Performed 07/28/2017) * GLUCOSE BODY FLUID(Performed 07/28/2017) * ALBUMIN FLUID(Performed 07/28/2017) * AMYLASE BODY FLUID(Performed 07/28/2017) * PH FLUID(Performed 07/28/2017) * CULTURE AFB+SMEAR(Performed 07/28/2017) * CULTURE FUNGUS OTHER+FUNGUS SMEAR(Performed 07/28/2017) * CULTURE ANAEROBE(Performed 07/28/2017) * CULTURE AEROBIC(Performed 07/28/2017) * XR CHEST 1VW(Performed 07/28/2017) * GLUCOSE ACCUCHECK(Performed 07/28/2017) * MRI BRAIN WWO CONTRAST(Performed 07/28/2017) * PTT SLH(Performed 07/28/2017) * PT-INR SLH(Performed 07/28/2017) * GLUCOSE ACCUCHECK(Performed 07/28/2017) * GLUCOSE ACCUCHECK(Performed 07/28/2017) * CT THORACIC SPINE WO CONTRAST(Performed 07/28/2017) * CT ANGIO BRAIN AND NECK(Performed 07/28/2017) * CT LUMBAR SPINE WO CONTRAST(Performed 07/28/2017) * CBC W/O DIFFERENTIAL(Performed 07/28/2017) * MAGNESIUM BLOOD(Performed 07/28/2017) * COMPREHENSIVE METABOLIC PANEL(Performed 07/28/2017) * PHOSPHORUS BLOOD(Performed 07/28/2017) * BLOOD GASES ARTERIAL(Performed 07/28/2017) * XR CHEST 1VW PORTABLE(Performed 07/28/2017) * CT HEAD WO CONTRAST(Performed 07/28/2017) * AMMONIA(Performed 07/28/2017) * MAGNESIUM BLOOD(Performed 07/28/2017) * BASIC METABOLIC PANEL (CALCIUM TOTAL)(Performed 07/28/2017) * CULTURE URINE(Performed 07/28/2017) * CULTURE BLOOD(Performed 07/28/2017) * URINALYSIS W/MICROSCOPIC NO CULTURE(Performed 07/28/2017) * ECHO LIMITED OR FOLLOWUP(Performed 07/28/2017) * CULTURE BLOOD(Performed 07/28/2017) * BLOOD GASES ARTERIAL(Performed 07/27/2017) * CBC W AUTO DIFFERENTIAL(Performed 07/27/2017) * RBC MORPHOLOGY(Performed 07/27/2017) * LACTIC ACID BLOOD(Performed 07/27/2017) * CBC W AUTO DIFFERENTIAL(Performed 07/27/2017) * BLOOD GASES ARTERIAL(Performed 07/27/2017) * GLUCOSE ACCUCHECK(Performed 07/27/2017) * GLUCOSE ACCUCHECK(Performed 07/27/2017) * XR ABDOMEN KUB PORTABLE(Performed 07/27/2017) * XR ABDOMEN KUB PORTABLE(Performed 07/27/2017) * XR ABDOMEN KUB PORTABLE(Performed 07/27/2017) * TEG PLATELET MAPPING(Performed 07/27/2017) * GLUCOSE ACCUCHECK(Performed 07/27/2017) * GLUCOSE ACCUCHECK(Performed 07/27/2017) * CULTURE BLOOD(Performed 07/27/2017) * CULTURE BLOOD(Performed 07/27/2017) * MAGNESIUM BLOOD(Performed 07/27/2017) * COMPREHENSIVE METABOLIC PANEL(Performed 07/27/2017) * PHOSPHORUS BLOOD(Performed 07/27/2017) * CBC W/O DIFFERENTIAL(Performed 07/27/2017) * CK BLOOD(Performed 07/27/2017) * XR CHEST 2VW INSPIR EXPIRATION(Performed 07/26/2017) * MRI LUMBAR SPINE WWO CONTRAST(Performed 07/26/2017) * MRI THORACIC SPINE WWO CONT(Performed 07/26/2017) * GLUCOSE ACCUCHECK(Performed 07/26/2017) * GLUCOSE ACCUCHECK(Performed 07/26/2017) * XR CHEST 2VW INSPIR EXPIRATION(Performed 07/26/2017) * IR THORACENTESIS(Performed 07/26/2017) * CULTURE FUNGUS OTHER+FUNGUS SMEAR(Performed 07/26/2017) * CULTURE AEROBIC(Performed 07/26/2017) * CULTURE AFB+SMEAR(Performed 07/26/2017) * CULTURE ANAEROBE(Performed 07/26/2017) * PH FLUID(Performed 07/26/2017) * CROSSMATCH RBC LEUKOREDUCED(Performed 07/26/2017) * CROSSMATCH RBC LEUKOREDUCED(Performed 07/26/2017) * GLUCOSE ACCUCHECK(Performed 07/26/2017) * BASIC METABOLIC PANEL (CALCIUM TOTAL)(Performed 07/26/2017) * TYPE + SCREEN PANEL(Performed 07/26/2017) * GLUCOSE ACCUCHECK(Performed 07/26/2017) * CBC W/O DIFFERENTIAL(Performed 07/26/2017) * VANCOMYCIN LEVEL TROUGH(Performed 07/26/2017) * LDH BLOOD(Performed 07/26/2017) * BLOOD GASES ARTERIAL(Performed 07/26/2017) * XR ABDOMEN KUB PORTABLE(Performed 07/26/2017) * GLUCOSE ACCUCHECK(Performed 07/25/2017) * GLUCOSE ACCUCHECK(Performed 07/25/2017) * GLUCOSE ACCUCHECK(Performed 07/25/2017) * XR CHEST 2VW(Performed 07/25/2017) * CULTURE BLOOD(Performed 07/25/2017) * CULTURE BLOOD(Performed 07/25/2017) * GLUCOSE ACCUCHECK(Performed 07/25/2017) * CBC W AUTO DIFFERENTIAL(Performed 07/25/2017) * COMPREHENSIVE METABOLIC PANEL(Performed 07/25/2017) * PHOSPHORUS BLOOD(Performed 07/25/2017) * MAGNESIUM BLOOD(Performed 07/25/2017) * CBC W AUTO DIFFERENTIAL(Performed 07/25/2017) * XR ABDOMEN KUB PORTABLE(Performed 07/25/2017) * GLUCOSE ACCUCHECK(Performed 07/24/2017) * BASIC METABOLIC PANEL (CALCIUM TOTAL)(Performed 07/24/2017) * CALCIUM IONIZED WHOLE BLOOD(Performed 07/24/2017) * GLUCOSE ACCUCHECK(Performed 07/24/2017) * GLUCOSE ACCUCHECK(Performed 07/24/2017) * URINALYSIS W/MICROSCOPIC NO CULTURE(Performed 07/24/2017) * CULTURE BLOOD(Performed 07/24/2017) * CULTURE BLOOD(Performed 07/24/2017) * GLUCOSE ACCUCHECK(Performed 07/24/2017) * TSH(Performed 07/24/2017) * MAGNESIUM BLOOD(Performed 07/24/2017) * COMPREHENSIVE METABOLIC PANEL(Performed 07/24/2017) * PHOSPHORUS BLOOD(Performed 07/24/2017) * CBC W AUTO DIFFERENTIAL(Performed 07/24/2017) * VANCOMYCIN LEVEL TROUGH(Performed 07/24/2017) * CBC W AUTO DIFFERENTIAL(Performed 07/24/2017) * GLUCOSE ACCUCHECK(Performed 07/23/2017) * GLUCOSE ACCUCHECK(Performed 07/23/2017) * BASIC METABOLIC PANEL (CALCIUM TOTAL)(Performed 07/23/2017) * XR ABDOMEN KUB PORTABLE(Performed 07/23/2017) * GLUCOSE ACCUCHECK(Performed 07/23/2017) * CULTURE BLOOD(Performed 07/23/2017) * CULTURE BLOOD(Performed 07/23/2017) * GLUCOSE ACCUCHECK(Performed 07/23/2017) * BLOOD GASES ARTERIAL(Performed 07/23/2017) * XR ABDOMEN KUB PORTABLE(Performed 07/23/2017) * XR ABDOMEN KUB PORTABLE(Performed 07/23/2017) * CBC W AUTO DIFFERENTIAL(Performed 07/23/2017) * COMPREHENSIVE METABOLIC PANEL(Performed 07/23/2017) * PHOSPHORUS BLOOD(Performed 07/23/2017) * MAGNESIUM BLOOD(Performed 07/23/2017) * CBC W AUTO DIFFERENTIAL(Performed 07/23/2017) * GLUCOSE ACCUCHECK(Performed 07/22/2017) * GLUCOSE ACCUCHECK(Performed 07/22/2017) * CULTURE AEROBIC(Performed 07/22/2017) * CULTURE FUNGUS OTHER+FUNGUS SMEAR(Performed 07/22/2017) * CULTURE AFB+SMEAR(Performed 07/22/2017) * CULTURE ANAEROBE(Performed 07/22/2017) * CT GUIDED NEEDLE PLACEMENT(Performed 07/22/2017) * CT GUIDED NEEDLE PLACEMENT(Performed 07/22/2017) * CULTURE BLOOD(Performed 07/22/2017) * C-REACTIVE PROTEIN(Performed 07/22/2017) * ERYTHROCYTE SEDIMENTATION RATE(Performed 07/22/2017) * GLUCOSE ACCUCHECK(Performed 07/22/2017) * VAS BILATERAL VENOUS DUPLEX UE(Performed 07/22/2017) * VAS BILATERAL VENOUS DUPLEX LE(Performed 07/22/2017) * GLUCOSE ACCUCHECK(Performed 07/22/2017) * ORGANISM ID REFLEXED(Performed 07/22/2017) * CULTURE BLOOD(Performed 07/22/2017) * CBC W AUTO DIFFERENTIAL(Performed 07/22/2017) * COMPREHENSIVE METABOLIC PANEL(Performed 07/22/2017) * PHOSPHORUS BLOOD(Performed 07/22/2017) * MAGNESIUM BLOOD(Performed 07/22/2017) * CBC W AUTO DIFFERENTIAL(Performed 07/22/2017) * GLUCOSE ACCUCHECK(Performed 07/21/2017) * GLUCOSE ACCUCHECK(Performed 07/21/2017) * GLUCOSE ACCUCHECK(Performed 07/21/2017) * GLUCOSE ACCUCHECK(Performed 07/21/2017) * CULTURE BLOOD(Performed 07/21/2017) * DIFFERENTIAL MANUAL(Performed 07/21/2017) * CBC W AUTO DIFFERENTIAL(Performed 07/21/2017) * COMPREHENSIVE METABOLIC PANEL(Performed 07/21/2017) * PHOSPHORUS BLOOD(Performed 07/21/2017) * MAGNESIUM BLOOD(Performed 07/21/2017) * CBC W AUTO DIFFERENTIAL(Performed 07/21/2017) * CULTURE BLOOD(Performed 07/21/2017) * METHICILLIN RAPID TEST(Performed 07/21/2017) * GLUCOSE ACCUCHECK(Performed 07/21/2017) * GLUCOSE ACCUCHECK(Performed 07/20/2017) * GLUCOSE ACCUCHECK(Performed 07/20/2017) * GLUCOSE ACCUCHECK(Performed 07/20/2017) * CT CHEST ABDOMEN PELVIS W CONT(Performed 07/20/2017) * GLUCOSE ACCUCHECK(Performed 07/20/2017) * GLUCOSE ACCUCHECK(Performed 07/20/2017) * CULTURE BLOOD(Performed 07/20/2017) * BLOOD GASES ARTERIAL(Performed 07/20/2017) * COMPREHENSIVE METABOLIC PANEL(Performed 07/20/2017) * PHOSPHORUS BLOOD(Performed 07/20/2017) * MAGNESIUM BLOOD(Performed 07/20/2017) * VANCOMYCIN LEVEL RANDOM(Performed 07/20/2017) * DIFFERENTIAL MANUAL(Performed 07/20/2017) * CBC W AUTO DIFFERENTIAL(Performed 07/20/2017) * CULTURE BLOOD(Performed 07/20/2017) * CBC W AUTO DIFFERENTIAL(Performed 07/20/2017) * GLUCOSE ACCUCHECK(Performed 07/20/2017) * GLUCOSE ACCUCHECK(Performed 07/19/2017) * CULTURE BLOOD(Performed 07/19/2017) * METHICILLIN RAPID TEST(Performed 07/19/2017) * CULTURE BLOOD(Performed 07/19/2017) * GLUCOSE ACCUCHECK(Performed 07/19/2017) * GLUCOSE ACCUCHECK(Performed 07/19/2017) * GLUCOSE ACCUCHECK(Performed 07/19/2017) * BLOOD GASES ARTERIAL(Performed 07/19/2017) * COMPREHENSIVE METABOLIC PANEL(Performed 07/19/2017) * PHOSPHORUS BLOOD(Performed 07/19/2017) * MAGNESIUM BLOOD(Performed 07/19/2017) * CBC W AUTO DIFFERENTIAL(Performed 07/19/2017) * VANCOMYCIN LEVEL RANDOM(Performed 07/19/2017) * CBC W AUTO DIFFERENTIAL(Performed 07/19/2017) * GLUCOSE ACCUCHECK(Performed 07/19/2017) * GLUCOSE ACCUCHECK(Performed 07/18/2017) * GLUCOSE ACCUCHECK(Performed 07/18/2017) * BASIC METABOLIC PANEL (CALCIUM TOTAL)(Performed 07/18/2017) * XR CHEST 1VW PORTABLE(Performed 07/18/2017) * BLOOD GASES ARTERIAL(Performed 07/18/2017) * COMPREHENSIVE METABOLIC PANEL(Performed 07/18/2017) * PHOSPHORUS BLOOD(Performed 07/18/2017) * MAGNESIUM BLOOD(Performed 07/18/2017) * VANCOMYCIN LEVEL RANDOM(Performed 07/18/2017) * CULTURE BLOOD(Performed 07/18/2017) * CULTURE BLOOD(Performed 07/18/2017) * METHICILLIN RAPID TEST(Performed 07/18/2017) * CBC W AUTO DIFFERENTIAL(Performed 07/18/2017) * CBC W AUTO DIFFERENTIAL(Performed 07/18/2017) * ECHO [place] TRANSESOPHAGEAL(Performed 07/18/2017) * XR LUMBAR SPINE 2 OR 3VW(Performed 07/17/2017) * XR ABDOMEN KUB PORTABLE(Performed 07/17/2017) * CK BLOOD(Performed 07/17/2017) * VITAMIN B12(Performed 07/17/2017) * FOLATE(Performed 07/17/2017) * CERULOPLASMIN(Performed 07/17/2017) * FERRITIN(Performed 07/17/2017) * TRANSFERRIN(Performed 07/17/2017) * IRON BLOOD(Performed 07/17/2017) * BLOOD GASES ARTERIAL(Performed 07/17/2017) * VANCOMYCIN LEVEL RANDOM(Performed 07/17/2017) * COMPREHENSIVE METABOLIC PANEL(Performed 07/17/2017) * PHOSPHORUS BLOOD(Performed 07/17/2017) * MAGNESIUM BLOOD(Performed 07/17/2017) * CBC W AUTO DIFFERENTIAL(Performed 07/17/2017) * RETIC COUNT(Performed 07/17/2017) * BLOOD GASES ARTERIAL(Performed 07/17/2017) * CULTURE BLOOD(Performed 07/17/2017) * CBC W AUTO DIFFERENTIAL(Performed 07/17/2017) * CULTURE BLOOD(Performed 07/17/2017) * EKG 12-LEAD(Performed 07/17/2017) * CBC W AUTO DIFFERENTIAL(Performed 07/16/2017) * CBC W AUTO DIFFERENTIAL(Performed 07/16/2017) * COMPREHENSIVE METABOLIC PANEL(Performed 07/16/2017) * PHOSPHORUS BLOOD(Performed 07/16/2017) * MAGNESIUM BLOOD(Performed 07/16/2017) * AMMONIA(Performed 07/16/2017) * BLOOD GASES ARTERIAL(Performed 07/16/2017) * LEGIONELLA ANTIGEN URINE(Performed 07/16/2017) * STREP PNEUMONIAE ANTIGEN URINE(Performed 07/16/2017) * LACTIC ACID BLOOD(Performed 07/16/2017) * BLOOD GASES ARTERIAL(Performed 07/16/2017) * GLUCOSE ACCUCHECK(Performed 07/16/2017) * XR CHEST 1VW PORTABLE(Performed 07/16/2017) * B-TYPE NATRIURETIC PEPTIDE(Performed 07/16/2017) * GLUCOSE ACCUCHECK(Performed 07/16/2017) * BLOOD GASES ARTERIAL(Performed 07/16/2017) * US ABDOMEN LIMITED(Performed 07/16/2017) * VANCOMYCIN LEVEL TROUGH(Performed 07/16/2017) * BLOOD GASES ARTERIAL(Performed 07/16/2017) * GLUCOSE ACCUCHECK(Performed 07/16/2017) * DIFFERENTIAL MANUAL(Performed 07/16/2017) * CBC W AUTO DIFFERENTIAL(Performed 07/16/2017) * COMPREHENSIVE METABOLIC PANEL(Performed 07/16/2017) * PHOSPHORUS BLOOD(Performed 07/16/2017) * MAGNESIUM BLOOD(Performed 07/16/2017) * CBC W AUTO DIFFERENTIAL(Performed 07/16/2017) * GLUCOSE ACCUCHECK(Performed 07/16/2017) * GLUCOSE ACCUCHECK(Performed 07/16/2017) * EKG 12-LEAD(Performed 07/16/2017) * PROTEIN URINE RANDOM QUANTITATIVE(Performed 07/15/2017) * CREATININE URINE RANDOM(Performed 07/15/2017) * UREA NITROGEN URINE RANDOM(Performed 07/15/2017) * SODIUM URINE RANDOM(Performed 07/15/2017) * OSMOLALITY URINE(Performed 07/15/2017) * EOSINOPHIL URINE SMEAR(Performed 07/15/2017) * CULTURE BLOOD(Performed 07/15/2017) * CULTURE BLOOD(Performed 07/15/2017) * GLUCOSE ACCUCHECK(Performed 07/15/2017) * GLUCOSE ACCUCHECK(Performed 07/15/2017) * BASIC METABOLIC PANEL (CALCIUM TOTAL)(Performed 07/15/2017) * GLUCOSE ACCUCHECK(Performed 07/15/2017) * GLUCOSE ACCUCHECK(Performed 07/15/2017) * RUFUS STAINING PATTERNS REFLEXED(Performed 07/15/2017) * EDITH BLOOD SCREEN W/REFLEX TITER(Performed 07/15/2017) * SMOOTH MUSCLE ANTIBODY(Performed 07/15/2017) * MICROSOMAL ANTIBODY LIVER/KIDNEY(Performed 07/15/2017) * FERRITIN(Performed 07/15/2017) * COMPREHENSIVE METABOLIC PANEL(Performed 07/15/2017) * PHOSPHORUS BLOOD(Performed 07/15/2017) * MAGNESIUM BLOOD(Performed 07/15/2017) * GGT(Performed 07/15/2017) * DIFFERENTIAL MANUAL(Performed 07/15/2017) * CBC W AUTO DIFFERENTIAL(Performed 07/15/2017) * CBC W AUTO DIFFERENTIAL(Performed 07/15/2017) * BASIC METABOLIC PANEL (CALCIUM TOTAL)(Performed 07/15/2017) * CREATININE URINE RANDOM(Performed 07/15/2017) * SODIUM URINE RANDOM(Performed 07/15/2017) * ECHO COMPLETE(Performed 07/15/2017) * EKG 12-LEAD(Performed 07/15/2017) * XR CHEST 1VW PORTABLE(Performed 07/14/2017) * ORGANISM ID REFLEXED(Performed 07/14/2017) * CULTURE BLOOD(Performed 07/14/2017) * CULTURE URINE(Performed 07/14/2017) * URINALYSIS W/MICROSCOPIC NO CULTURE(Performed 07/14/2017) * CULTURE BLOOD(Performed 07/14/2017) * BLOOD GASES ARTERIAL(Performed 07/14/2017) * HEMOGLOBIN A1C(Performed 07/14/2017) * DIFFERENTIAL MANUAL(Performed 07/14/2017) * CBC W AUTO DIFFERENTIAL(Performed 07/14/2017) * ERYTHROCYTE SEDIMENTATION RATE(Performed 07/14/2017) * COMPREHENSIVE METABOLIC PANEL(Performed 07/14/2017) * PHOSPHORUS BLOOD(Performed 07/14/2017) * MAGNESIUM BLOOD(Performed 07/14/2017) * C-REACTIVE PROTEIN(Performed 07/14/2017) * PTT SLH(Performed 07/14/2017) * PT-INR SLH(Performed 07/14/2017) * CBC W AUTO DIFFERENTIAL(Performed 07/14/2017) * AMMONIA(Performed 07/14/2017) * HEPATITIS B SURFACE ANTIGEN W RFLX CONFIRMATION(Performed 07/14/2017) * HEPATITIS B SURFACE ANTIBODY(Performed 07/14/2017) * HEPATITIS B CORE ANTIBODY TOTAL(Performed 07/14/2017) * HEPATITIS C ANTIBODY(Performed 07/14/2017) * CHEKJ-2-[id number] BLOOD PHENOTYPING PANEL(Performed 07/14/2017) * TRANSFERRIN(Performed 07/14/2017) * HIV-1 HIV-2 ANTIGEN/ANTIBODY(Performed 07/14/2017) * EKG 12-LEAD(Performed 07/14/2017) * CULTURE AEROBIC(Performed 06/08/2017) * ZINC BLOOD(Performed 04/23/2017) * VITAMIN D 25-HYDROXY(Performed 04/23/2017) * TSH HI LOW REFLEX FREE T4(Performed 04/23/2017) * CULTURE AEROBIC(Performed 04/06/2017) * CULTURE AEROBIC(Performed 02/14/2017) * DERMATOPATHOLOGY(Performed 02/14/2017) * DERMATOPATHOLOGY(Performed 02/14/2017) Results * [place] DRAIN/INJECT LARGE JOINT/BURSA (05/15/2024 1:52 PM LEAD SYSTEMS DEVELOPER) Narrative Larry Alexander MD - 05/15/2024 1:52 PM LEAD SYSTEMS DEVELOPER Larry Alexander MD ? 05/15/2024 ??4:48 PM Orthopaedic Surgery Procedure Note José Miguel Keys [id number] Diagnosis: Left knee pain Procedure: Injection of corticosteroid into the left knee Indications: José Miguel Keys is a 73 year old male [...] XR Knee Left 3Vw (05/15/2024 1:22 PM LEAD SYSTEMS DEVELOPER) Anatomical Region Laterality Modality Lower Extremity Radiographic Shama ging 05/15/2024 1:51 PM LEAD SYSTEMS DEVELOPER Narrative 05/15/2024 1:51 PM LEAD SYSTEMS DEVELOPER Procedure: XR KNEE LEFT 3VW ??Exam Date: ??05/15/2024 1:23 PM ?? Location: ??[facility] Indication: M25.562: Pain in left knee [...] LEFT 3VW Exam Date: 05/15/2024 1:23 PM Location:[facility] Indication: M25.562: Pain in left knee [...] US ABDOMEN LIMITED (04/02/2024 12:11 PM CDT) Only the most recent of12 resultswithin the time period is included. Anatomical Region Laterality Modality Abdomen Ultrasound 04/02/2024 2:47 PM CDT Impressions 04/02/2024 7:45 PM CDT IMPRESSION: Liver Visualization Score C: Severe limitations. US-1 Negative. Repeat surveillance US in 6 months. Patent hepatic vasculature. 1.Hepatic cirrhosis without discrete hepatic observations. 2.Cholelithiasis without cholecystitis. Report drafted by Ana María Banerjee MD I, Evelia Hdez MD have personally reviewed and interpreted this examination/study. > Interpreting Provider: Evelia Hdez MD on 04/02/2024 7:45 PM Narrative 04/02/2024 7:45 PM CDT PROCEDURE: ??US ABDOMEN LIMITED, DATE/TIME OF EXAM: ??04/02/2024 12:19 PM, LOCATION ??[facility] INDICATION: K75.81: Liver cirrhosis secondary to [...] hydronephrosis. ??No discrete mass identified. Procedure Note Evelia Hdez MD - 04/02/2024 PROCEDURE: US ABDOMEN LIMITED, DATE/TIME OF EXAM: 04/02/2024 12:19 PM, LOCATION [facility] INDICATION: K75.81: Liver cirrhosis secondary to [...] drafted by Ana María Banerjee MD I, Evelia Hdez MD have personally reviewed and interpreted this examination/study. > Interpreting Provider: Evelia Hdez MD on 04/02/2024 7:45 PM Twin Miller MD US ORDERABLES * (ABNORMAL) PT-INR [facility] (04/02/2024 11:08 AM CDT) Only the most recent of18 resultswithin the time period is included. PT 17.9(H) 12.1 - 14.8 Seconds 04/02/2024 12:13 PM T [facility] INR 1.5 See Comment 04/02/2024 12:13 PM [facility] Comment:The suggested therap eutic range for standard coumadin (warfarin) therapy is an INR of 2.0-3.0. For high-risk patients (Mechanical Mitral Valve Prosthesis, etc.), the suggested prophylactic therapeutic range is an INR of 2.5-3.5. Blood BLOOD SPECIMEN / Unknown Lab Venipuncture / Unknown 04/02/2024 11:08 AM CDT 04/02/2024 11:14 AM CDT Twin Miller MD LAB - COAGULAT ION ORDERABLES Performing Organization Address [facility] de Phone Number [address] [address], [facility] [phone] * ALPHA FETOPROTEIN BLOOD TUMOR MARKER (04/02/2024 11:08 AM CDT) Only the most recent of9 resultswithin the time period is included. [facility] Alpha-Fetoprote in Tumor Marker <2.0 <=8.3 ng/mL 04/02/2024 12:37 PM CDT [facility] Comment: AFP values will vary depending on testing procedure used. Results are not comparable across different methods. AFP values obtained by [facility] using an [employer] Alinity Immunoassay. Blood BLOOD SPECIMEN / Unknown Lab Venipuncture / Unknown 04/02/2024 11:08 AM CDT 04/02/2024 11:46 AM CDT Twin Miller MD LAB - CHEMISTR Y ORDERABLES Performing Organization Address [facility] Co de Phone Number [address] [address], [facility] [phone] * (ABNORMAL) CBC WITH DIFFERENTIAL (04/02/2024 11:08 AM CDT) Only the most recent of125 resultswithin the time period is included. [facility] WBC 6.7 4.0 - 10.7 x10E9/L 04/02/2024 1:27 PM CDT [facility] RBC Count 3.48(L) 4.30 - 5.80 x10E12/L 04/02/2024 1:27 PM CDT [facility] Hemoglobin 10.1(L) 13.3 - 17.5 g/dL 04/02/2024 1:27 PM CDT [facility] Hematocrit 33.6(L) 38.7 - 51.1 % 04/02/2024 1:[address] [facility] MCV 96.6 80.0 - 98.0 fL 04/02/2024 1:27 PM [facility] MCH 29.0 26.7 - 33.6 pg 04/02/2024 1:27 PM [facility] MCHC 30.1(L) 31.7 - 36.3 g/dL 04/02/2024 1:27 PM [facility] RDW-CV 15.7(H) 11.3 - 14.8 % 04/02/2024 1:27 PM [facility] Platelet Count 120(L) 150 - 420 x10E9/L 04/02/2024 1:27 PM [facility] MPV 04/02/2024 1:27 PM [facility] Comment:Unable to report Neutrophil % 67.8 41.0 - 74.0 % 04/02/2024 1:27 PM [facility] Lymphocyte % 12.7(L) 17.0 - 47.0 % 04/02/2024 1:27 PM [facility] Monocyte % 13.0(H) 3.0 - 11.0 % 04/02/2024 1:27 PM [facility] Eosinophil % 5.7 0.0 - 7.0 % 04/02/2024 1:27 PM [facility] Basophil % 0.7 0.0 - 1.6 % 04/02/2024 1:27 PM [facility] Immature Granulocytes % 0.1 0.0 - 1.0 % 04/02/2024 1:27 PM [facility] Neutrophil Absolute 4.51 1.60 - 7.50 x10E9/L 04/02/2024 1:27 PM [facility] Lymphocyte Absolute 0.85(L) 1.00 - 4.40 x10E9/L 04/02/2024 1:27 PM [facility] Monocyte Absolute 0.87 0.15 - 1.00 x10E9/L 04/02/2024 1:27 PM [facility] Eosinophil Absolute 0.38 0.00 - 0.60 x10E9/L 04/02/2024 1:27 PM [facility] Basophil Absolute 0.05 0.00 - 0.13 x10E9/L 04/02/2024 1:27 PM [facility] Blood BLOOD SPECIMEN / Unknown Lab Venipuncture / Unknown 04/02/2024 11:08 AM CDT 04/02/2024 11:46 AM CDT Twin Miller MD LAB - HEMATOLO GY ORDERABLES [facility] [address] [place] [address], [facility] [phone] * (ABNORMAL) COMPREHENSIVE METABOLIC PANEL (04/02/2024 11:08 AM CDT) Only the most recent of60 resultswithin the time period is included. BUN 30(H) 7 - 26 mg/dL 04/02/2024 12:13 PM [facility] Creatinine 1.87(H) 0.71 - 1.16 mg/dL 04/02/2024 12:13 PM [facility] Sodium 145 136 - 145 mmol/L 04/02/2024 12:13 PM [facility] Potassium 3.8 3.5 - 4.5 mmol/L 04/02/2024 12:13 PM [facility] Chloride 105 98 - 107 mmol/L 04/02/2024 12:13 PM [facility] CO2 30(H) 22 - 29 mmol/L 04/02/2024 12:13 PM [facility] Glucose 106(H) 70 - 99 mg/dL 04/02/2024 12:13 PM [facility] Calcium 9.6 8.4 - 10.2 mg/dL 04/02/2024 12:13 PM [facility] Protein Total 6.8 6.0 - 8.3 g/dL 04/02/2024 12:13 PM [facility] Albumin 3.5 3.4 - 5.0 g/dL 04/02/2024 12:13 PM [facility] Bilirubin Total 0.5 0.2 - 1.2 mg/dL 04/02/2024 12:13 PM [facility] Alkaline Phosphatase 95 40 - 150 U/L 04/02/2024 12:13 PM [facility] ALT 14 5 - 55 U/L 04/02/2024 12:13 PM [facility] AST 22 5 - 34 U/L 04/02/2024 12:13 PM [facility] Anion Gap 10 6 - 16 04/02/2024 12:13 PM [facility] BUN/Creatinine Ratio 16 7 - 23 04/02/2024 12:13 PM [facility] Osmolality Calculated 307(H) 275 - 295 mOsm/kg 04/02/2024 12:13 PM [facility] Albumin/Globulin Ratio 1.1 1.1 - 2.3 04/02/2024 12:13 PM [facility] eGFR by CKD-EPI 37(L) >=90 mL/min/1.7 3 m2 04/02/2024 12:13 PM [facility] Blood BLOOD SPECIMEN / Unknown Lab Venipuncture / Unknown 04/02/2024 11:08 AM CDT 04/02/2024 11:46 AM CDT Twin Miller MD LAB - CHEMISTR Y ORDERABLES [facility] [address] [place] [address], [facility] [phone] * CARDIAC EKG ORDER (11/07/2023 11:24 PM CDT) Only the most recent of11 resultswithin the time period is included. Narrative 11/07/2023 11:24 PM CDT Ordered by an unspecified provider. Scanned Document CARDIAC SERVICES ORD ERABLES * GLUCOSE - POINT OF CARE (11/03/2023 12:08 PM CDT) Only the most recent of144 resultswithin the time period is included. Glucose WB/POC 96 70 - 106 mg/dL 11/03/2023 12:18 PM CDT [facility] Specimen Type Cap Fingerstick 2023 12:18 PM CDT [facility] Blood BLOOD SPECIMEN / Unknown 11/03/2023 12:08 PM CDT 11/03/2023 12:18 PM CDT Ariel Martinez MD LAB - POINT OF CARE ORDERABLES Performing Organization Address [facility] Co de Phone Number [facility] [address] [place] [address] * SARS-COV-2 (COVID-19) RAPID (11/03/2023 10:51 AM CDT) [facility] Signature COVID-19 PCR Not detected Not detected 11/03/19 11:27 AM CDT [facility] Microbiology SPECIMEN FROM NASOPHARYNGEAL STRUCTURE / Unknown Collection / Unknown 11/03/2023 10:51 AM CDT 11/03/2023 10:54 AM CDT Narrative [facility] - 11/03/2023 11:27 AM CDT [employer] Xpert Xpress SARS-COV-2 has been authorized by the Food and Drug Administration (FDA) under an Emergency Use Authorization (EUA). This test has been validated in accordance with the FDA's guidance document Policy for Diagnostic Testing in Laboratories Certified to perform High Complexity Testing under CLIA prior to Emergency Use Authorization for Coronavirus Disease-2019 during the Public Health Emergency issued on August 04, 2019. FDA independent review of this validation is pending. This test is only authorized for the duration of the time the declaration that circumstances exist justifying the authorization of emergency use of in vitro diagnostic tests for detection of SARS-COV-2 virus and/or diagnosis of COVID-19 infection under 564(b) (1) of the Act. 21 U.S.C. 360bbb-3 (b) (1), unless the authorization is terminated or revoked sooner. Fact Sheets for this EUA assay are available upon request. Ariel Martinez MD LAB - MICROBIOLOGY O RDERABLES Performing Organization Address [facility]/ZIP Co de Phone Number [facility] [address] [place] [address] * (ABNORMAL) BASIC METABOLIC PANEL (CALCIUM TOTAL) (11/03/2023 4:17 AM CDT) Only the most recent of52 resultswithin the time period is included. Glucose 92 70 - 105 mg/dL 11/03/2023 5:00 AM [facility] Sodium 138 136 - 145 mmol/L 11/03/2023 5:00 AM [facility] Potassium 4.5 3.5 - 5.1 mmol/L 11/03/2023 5:00 AM [facility] Chloride 107 98 - 107 mmol/L 11/03/2023 5:00 AM [facility] CO2 25 22 - 29 mmol/L 11/03/2023 5:00 AM [facility] Calcium 9.3 8.4 - 10.4 mg/dL 11/03/2023 5:00 AM [facility] Anion Gap 6 6 - 16 mmol/L 11/03/2023 5:00 AM [facility] BUN 25 7 - 26 mg/dL 11/03/2023 5:00 AM [facility] Creatinine 1.59(H) 0.72 - 1.25 mg/dL 11/03/2023 5:00 AM [facility] eGFR by CKD-EPI 45(L) >=90 mL/min/1.7 3 m2 11/03/2023 5:00 AM [facility] Blood BLOOD SPECIMEN / Unknown Lab Venipuncture / Unknown 11/03/2023 4:17 AM CDT 11/03/2023 4:39 AM T Ariel Martinez MD LAB - CHEMISTRY ROYCE KLINE [facility] Organization Address City/State/ZIP Co de Phone Number [facility] [address] [place] [address] * MAGNESIUM BLOOD (11/03/2023 4:17 AM CDT) Only the most recent of76 resultswithin the time period is included. Magnesium 2.1 1.6 - 2.6 mg/dL 11/03/2023 5:00 AM [facility] Blood BLOOD SPECIMEN / Unknown Lab Venipuncture / Unknown 11/03/2023 4:17 AM CDT 11/03/2023 4:39 AM CDT Tamara Bauman MD LAB - CHEMISTRY ROYCE KLINE [facility] Organization Address City/State/ZIP Co de Phone Number [facility] [address] [facility] [place] [address] * XR CHEST 1VW PORTABLE (11/02/2023 4:37 PM CDT) Only the most recent of47 resultswithin the time period is included. Anatomical Region Laterality Modality Chest Radiographic Shama ging 11/02/2023 4:38 PM CDT Impressions 11/02/2023 4:40 PM CDT IMPRESSION: Nonstandard patient positioning. Suspect progressive left basilar infiltrate and small effusion but without consolidation > Interpreting Provider: Alberto Atwood MD on 11/02/2023 4:40 PM Narrative 11/02/2023 4:40 PM CDT PROCEDURE: ??XR CHEST 1VW PORTABLE DATE/TIME OF EXAM: ??11/02/2023 4:37 PM INDICATION: R09.02: Hypoxemia COMPARISON: October 30 ADDITIONAL CLINICAL INFORMATION (if provided): Ordering Provider Reason For Exam: Findings: The patient is tilted to the left. The heart is mildly enlarged. The aorta is normal in caliber. ??The right diaphragm is elevated. ??Slightly progressive left basilar infiltrate and small effusion is seen. ??There is no right-sided infiltrate or effusion. There is no pneumothorax. There is no mass or adenopathy.. Procedure Note Alberto Atwood MD - 11/02/2023 PROCEDURE: XR CHEST 1VW PORTABLE DATE/TIME OF EXAM: 11/02/2023 4:37 PM INDICATION: R09.02: Hypoxemia COMPARISON: October 30 ADDITIONAL CLINICAL INFORMATION (if provided): Ordering Provider Reason For Exam: Findings: The patient is tilted to the left. The heart is mildly enlarged. Theaorta is normal in caliber. The right diaphragm is elevated. Slightly progressive left basilar infiltrate and small effusion is seen. Thereis no right-sided infiltrate or effusion. There is no pneumothorax. There is no mass or adenopathy.. IMPRESSION: Nonstandard patient positioning. Suspect progressive left basilar infiltrate and small effusion butwithout consolidation > Interpreting Provider: Alberto Atwood MD on 11/02/2023 4:40 PM Ariel Martinez MD DIAGNOSTIC IMAGING O RDERABLES * (ABNORMAL) BLOOD GASES ARTERIAL (11/02/2023 4:23 PM CDT) Only the most recent of25 resultswithin the time period is included. pH Arterial 7.26(L) 7.35 - 7.45 pH 11/02/2023 4:27 PM CDT [facility] pCO2 Arterial 59(H) 35 - 45 mmHg 11/02/2023 4:27 PM CDT [facility] pO2 Arterial 133(H) 80 - 100 mmHg 11/02/2023 4:27 PM CDT [facility] HCO3 Arterial 26.5(H) 22.0 - 26.0 mmol/L 11/02/2023 4:27 PM CDT [facility] BE Arterial -1.7 -2.0 - 2.0 mmol/L 11/02/2023 4:27 PM CDT [facility] O2 Saturation Arterial 100 90 - 100 % 11/02/2023 4:27 PM CDT [facility] Malik's Test Positive 11/02/2023 4:27 PM CDT [facility] Sample Site Left RA 11/02/2023 4:27 PM CDT [facility] O2 Device Cannula 11/02/2023 4:27 PM CDT [facility] Liter Flow (LPM) 3 11/02/2023 4:27 PM CDT [facility] P/F Ratio 11/02/2023 4:27 PM CDT [facility] Comment:C^Incalculable Blood, arterial ARTERIAL BLOOD SPECIMEN / Unknown 11/02/2023 4:23 PM CDT 11/02/2023 4:23 PM CDT Ariel Martinez MD LAB - BLOOD GASES OR DERABLES [facility] [address] [facility] [employer] [address] [phone] * (ABNORMAL) B-TYPE NATRIURETIC PEPTIDE (11/01/2023 5:02 AM CDT) Only the most recent of8 resultswithin the time period is included. BNP 673(H) <=100 pg/mL 11/01/2023 5:30 AM CDT [facility] Blood BLOOD SPECIMEN / Unknown Lab Venipuncture / Unknown 11/01/2023 5:02 AM CDT 11/01/2023 5:05 AM CDT Tiffany Fortune MD LAB - CHEMISTRY ROYCE KLINE Performing Organization Address [facility]/ZIP Co de Phone Number [facility] [address] [place] [address] * (ABNORMAL) LIPID PROFILE (11/01/2023 5:02 AM CDT) Cholesterol 100 <200 mg/dL 11/01/2023 5:26 AM CDT [facility] Triglycerides 74 <150 mg/dL 11/01/2023 5:26 AM [facility] HDL Cholesterol 33(L) >40 mg/dL 4 5:26 AM [facility] LDL Calculated 52 <130 mg/dL 11/01/2023 5:26 AM [facility] VLDL Calculated 15 <=30 mg/dL 4 5:26 AM [facility] Chol HDL Ratio 3.0 <4.5 11/01/2023 5:26 AM [facility] LDL/HDL Ratio 1.6 <5.0 11/01/2023 5:26 AM T [facility] Blood BLOOD SPECIMEN / Unknown Lab Venipuncture / Unknown 11/01/2023 5:02 AM CDT 11/01/2023 5:05 AM CDT Mary Cote MD LAB - CHEMISTRY ROYCE KLINE Performing Organization Address City/[facility]/ZIP Co de Phone Number [facility] [address] [place] [address] * VAS RIGHT VENOUS DUPLEX UE (10/27/2023 9:33 AM CDT) Anatomical Region Laterality Modality Upper Extremity Intravascular Ul trasound 10/27/2023 9:08 AM CDT Narrative 10/27/2023 9:40 AM CDT ?[facility] ?[address] ?[place], [place] ??[address] ? Upper Extremity Venous Ultrasound Report ? Pat.Name: ??JOSÉ MIGUEL KEYS ? Pat.ID: ?[id number] ? St.Date: ?? 10/27/2023 ? Refer.MD: ??Dipak Padilla ? Exam Time: 9:08:00 AM ?Study Type:UE Venous ?Age: ??1950,72Y ?Sex: ? MALE ? Sonogrphr: Elisabet Caba, RVT ?Pat. Stat.:Inpatient ? Room: ?435 ? CPT - 4: ?56101 ? Reason for Study: Swelling -Arm/hand, right Procedures: ??Upper Extremity Venous - Right Race: ?CAU ? Visit ID: ??[id number] ? ++++++++++++++++++++++++++++++++++++ SUMMARY: ++++++++++++++++++++++++++++++++++++ Acute superficial, occlusive venous thrombosis of the ??distal right cephalic vein. There is no other evidence of venous thrombosis in the right upper extremity by this exam. This is a superficial process, no further follow up is required unless there is a change in the patient's condition. ++++++++++++++++++++++++++++++++++++ FINDINGS: ++++++++++++++++++++++++++++++++++++ Procedure: Venous duplex imaging of the right upper extremity, up to ?and ??including the internal jugular vein, was performed ?using ??color flow and spectral Doppler analysis. The ?contralateral ??subclavian vein was also examined. Study Quality: This study is of adequate technical quality. Rt Arm: ?? There was spontaneous and pulsatile flow seen the proximal ?veins ??of the right arm. There is echogenic material seen in ?the ??distal cephalic vein that appears hypoechoic in ?composition, ??with non compressibility. All other vessels ?seen ??appear patent and compressible. All other vessels are ?spontaneous ??and phasic. The left subclavian vein ?demonstrated ??spontaneous and pulsatile flow. Comments: Technologist findings were give to ordering physician via ?secure ??chat. Signed 10/27/2023 09:40 AM Александр Johnston MD, RPVI Procedure Note Александр Johnston Sr., MD - 11/01/2023 [facility] [address] [place] [address] Upper Extremity Venous Ultrasound Report Pat.Name: KEYS JOSÉ MIGUEL Nia Pat.ID: [id number] .Date: 10/27/2023 Refer.MD: Dipak Padilla Exam Time: 9:08:00 AM Study Type:UE Venous Age: 6 1950,72Y Sex: MALE Sonogrphr: Elisabet Caba RVT Pat. Stat.:Inpatient Room: 435 CPT - 4: 59337 Reason for Study: Swelling -Arm/hand, right Procedures: Upper Extremity Venous - Right Race: [facility] Visit ID: [id number] ++++++++++++++++++++++++++++++++++++ SUMMARY: ++++++++++++++++++++++++++++++++++++ Acute superficial, occlusive venous thrombosis of the distal right cephalic vein. There is no other evidence of venous thrombosis in the right upper extremity by this exam. This is a superficial process, no further follow up is required unless there is a change in the patient's condition. ++++++++++++++++++++++++++++++++++++ FINDINGS: ++++++++++++++++++++++++++++++++++++ Procedure: Venous duplex imaging of the right upper extremity, up to and including the internal jugular vein, was performed using color flow and spectral Doppler analysis. The contralateral subclavian vein was also examined. Study Quality: This study is of adequate technical quality. Rt Arm: There was spontaneous and pulsatile flow seen the proximal veins of the right arm. There is echogenic material seen in the distal cephalic vein that appears hypoechoic in composition, with non compressibility. All other vessels seen appear patent and compressible. All other vessels are spontaneous and phasic. The left subclavian vein demonstrated spontaneous and pulsatile flow. Comments: Technologist findings were give to ordering physician via secure chat. Signed 10/27/2023 09:40 AM Александр Johnston MD, RPVI Dipak Padilla MD VASCULAR LAB ORDERAB LES * (ABNORMAL) DIFFERENTIAL MANUAL (10/27/2023 7:37 AM CDT) Only the most recent of18 resultswithin the time period is included. Neutrophil % 86(H) 41 - 74 % 10/27/2023 8:29 AM CDT [facility] Lymphocyte % 4(L) 17 - 47 % 10/27/2023 8:29 AM CDT [facility] Monocyte % 8 3 - 11 % 10/27/2023 8:29 AM CDT [facility] Eosinophil % 1 0 - 7 % 10/27/2023 8:29 AM CDT [facility] Basophil % 1 0 - 2 % 10/27/2023 8:29 AM CDT [facility] Neutrophil Absolute 12.47(H) 1.60 - 7.50 x10E9/L 10/27/2023 8:29 AM CDT [facility] Lymphocyte Absolute 0.58(L) 1.00 - 4.40 x10E9/L 10/27/2023 8:29 AM CDT [facility] Monocyte Absolute 1.16(H) 0.15 - 1.00 x10E9/L 10/27/2023 8:29 AM CDT [facility] Eosinophil Absolute 0.15 0.00 - 0.60 x10E9/L 10/27/2023 8:29 AM CDT [facility] Basophil Absolute 0.15(H) 0.00 - 0.13 x10E9/L 10/27/2023 8:29 AM CDT [facility] RBC Morphology REVIEWED 10/27/2023 8:29 AM CDT [facility] Macrocytosis MODERATE(A) (none) 10/27/2023 8:29 AM CDT [facility] Polychromatic Cells MODERATE(A) (none) 10/27/2023 8:29 AM CDT [facility] Blood BLOOD SPECIMEN / Unknown Venipuncture / Unknown 10/27/2023 7:37 AM CDT 10/27/2023 7:37 AM CDT Tamara Bauman MD LAB - HEMATOLOGY ORD ERABLES Performing Organization Address City/State/[facility] Co de Phone Number [facility] [address] [place] [address] * XR ELBOW RIGHT 2VW (10/26/2023 3:21 PM CDT) Anatomical Region Laterality Modality Upper Extremity Radiographic Shama ging 10/26/2023 3:27 PM CDT Impressions 10/26/2023 3:28 PM CDT IMPRESSION: No acute fracture or dislocation. > Interpreting Provider: Mireya Denson MD on 10/26/2023 3:28 PM Narrative 10/26/2023 3:28 PM CDT PROCEDURE: ??XR ELBOW RIGHT 2VW DATE/TIME OF EXAM: ??10/26/2023 3:23 PM CLINICAL INFORMATION: None relevant/not provided if blank. Indication: M25.521: Pain in right elbow Additional History: Sudden onset of right elbow pain this a.m. COMPARISON: None. FINDINGS: No fracture is identified. Degenerative change of the right elbow appear No other acute process is seen. ?? Procedure Note Mireya Denson MD - 10/26/2023 PROCEDURE: XR ELBOW RIGHT 2VW DATE/TIME OF EXAM: 10/26/2023 3:23 PM CLINICAL INFORMATION: None relevant/not provided if blank. Indication: M25.521: Pain in right elbow Additional History: Sudden onset of right elbow pain this a.m. COMPARISON: None. FINDINGS: No fracture is identified. Degenerative change of the right elbow appear No other acute process is seen. IMPRESSION: No acute fracture or dislocation. > Interpreting Provider: Mireya Denson MD on 10/26/2023 3:28 PM Dipak Padilla MD DIAGNOSTIC IMAGING O RDERABLES * (ABNORMAL) RENAL FUNCTION PANEL (10/26/2023 3:59 AM CDT) Only the most recent of11 resultswithin the time period is included. Glucose 103 70 - 105 mg/dL 10/26/2023 4:51 AM CDT [facility] Sodium 144 136 - 145 mmol/L 10/26/2023 4:51 AM CDT [facility] Potassium 4.1 3.5 - 5.1 mmol/L 10/26/2023 4:51 AM CDT [facility] Chloride 113(H) 98 - 107 mmol/L 10/26/2023 4:51 AM CDT [facility] CO2 19(L) 22 - 29 mmol/L 10/26/2023 4:51 AM CDT [facility] Calcium 9.3 8.4 - 10.4 mg/dL 10/26/2023 4:51 AM CDT [facility] Anion Gap 12 6 - 16 mmol/L 10/26/2023 4:51 AM CDT [facility] BUN 17 7 - 26 mg/dL 10/26/2023 4:51 AM CDT [facility] Creatinine 1.08 0.72 - 1.25 mg/dL 10/26/2023 4:51 AM CDT [facility] Albumin 2.4(L) 3.4 - 5.0 gm/dL 10/26/2023 4:51 AM CDT [facility] Phosphorus 2.6 2.3 - 4.7 mg/dL 10/26/2023 4:51 AM CDT [facility] eGFR by CKD-EPI 72(L) >=90 mL/min/1.7 3 m2 10/26/2023 4:51 AM CDT [facility] Blood BLOOD SPECIMEN / Unknown Lab Venipuncture / Unknown 10/26/2023 3:59 AM CDT 10/26/2023 4:26 AM CDT Dipak Padilla MD LAB - CHEMISTRY ROYCE KLINE [facility] Organization Address City/State/ZIP Co de Phone Number [facility] [address] [place] [address] * XR CHEST 1VW (10/24/2023 5:17 AM CDT) Only the most recent of3 resultswithin the time period is included. Anatomical Region Laterality Modality Chest Radiographic Shama ging 10/24/2023 9:03 AM CDT Impressions 10/24/2023 9:05 AM CDT IMPRESSION: Exam with reduced sensitivity. Tube(s) and/or line(s) appear without apparent complicatioTube(s) and/or line(s) appear without apparent complication, details in Findings.n, details in Findings. Improving minor retrocardiac opacity with small left pleural effusion. No overt cardiogenic edema > Interpreting Provider: Puneet Gerber MD on 10/24/2023 9:05 AM Narrative 10/24/2023 9:05 AM CDT PROCEDURE: ??XR CHEST 1VW CLINICAL INFORMATION (none relevant/not provided if blank): Indication: J96.01: Acute respiratory failure with hypoxia (HCC) R13.12: Dysphagia, oropharyngeal phase COMPARISON: 10/20/23 FINDINGS: Monitoring leads obscure part of the patient. Frontal ??technique may decrease exam sensitivity. Patient is rotated resulting in nonstandard imaging views which may reduce exam sensitivity. Low lung volumes noted and may reduce exam sensitivity. Improving mild Retrocardiac ??reticular nodular/non-consolidative opacities: differential diagnosis includes atelectasis or pneumonia. Small left pleural effusion is stable Background pattern of generalized coarse reticular opacities likely reflects chronic lung changes ??. No cardiogenic edema. ??No pneumothorax given technique. Cardiomediastinal silhouette is stable from prior exam. Aortic arterial atherosclerotic disease noted. Procedure Note Puneet Gerber MD - 10/24/2023 PROCEDURE: XR CHEST 1VW CLINICAL INFORMATION (none relevant/not provided if blank): Indication: J96.01: Acute respiratory failure with hypoxia (HCC) R13.12: Dysphagia, oropharyngeal phase COMPARISON: 10/20/23 FINDINGS: Monitoring leads obscure part of the patient. Frontal technique may decrease exam sensitivity. Patient is rotated resulting in nonstandard imaging views which mayreduce exam sensitivity. Low lung volumes noted and may reduce exam sensitivity. Improving mild Retrocardiac reticular nodular/non-consolidativeopacities: differential diagnosis includes atelectasis or pneumonia. Small left pleural effusion is stable Background pattern of generalized coarse reticular opacities likely reflects chronic lung changes . No cardiogenic edema. No pneumothorax given technique. Cardiomediastinal silhouette is stable from prior exam. Aortic arterial atherosclerotic disease noted. IMPRESSION: Exam with reduced sensitivity. Tube(s) and/or line(s) appear without apparent complicatioTube(s) and/or line(s) appear without apparent complication, details in Findings.n, details in Findings. Improving minor retrocardiac opacity with small left pleural effusion.No overt cardiogenic edema > Interpreting Provider: Puneet Gerber MD on 10/24/2023 9:05 AM Alvino Goddard MD DIAGNOSTIC IMAGING ORDERABLES * XR ABDOMEN KUB (10/22/2023 5:19 PM CDT) Only the most recent of4 resultswithin the time period is included. Anatomical Region Laterality Modality Abdomen Radiographic Shama ging 10/23/2023 12:3 3 PM CDT Impressions 10/23/2023 12:36 PM CDT IMPRESSION: No evidence of bowel obstruction. > Interpreting Provider: Neo Cline MD on 10/23/2023 12:36 PM Narrative 10/23/2023 12:36 PM CDT PROCEDURE: ??XR ABDOMEN KUB DATE/TIME OF EXAM: ??10/22/2023 5:20 PM CLINICAL INFORMATION: None relevant/not provided if blank. Indication: R13.12: Dysphagia, oropharyngeal phase Additional History: Abdominal pain. Possible ileus. COMPARISON: CT 10/16/2023 FINDINGS: Portable supine AP views of the abdomen were obtained on 2 images. The diaphragm is excluded by collimation. There is high density contrast in the left upper quadrant presumably within the stomach. There is gaseous distention of the colon. There is a small amount of residual contrast in the right colon and rectum. No abnormally dilated loops of intestine are identified to suggest obstruction. There is degenerative change of the spine. Bilateral hip replacements noted. Procedure Note Neo Cline MD - 10/23/2023 PROCEDURE: XR ABDOMEN KUB DATE/TIME OF EXAM: 10/22/2023 5:20 PM CLINICAL INFORMATION: None relevant/not provided if blank. Indication: R13.12: Dysphagia, oropharyngeal phase Additional History: Abdominal pain. Possible ileus. COMPARISON: CT 10/16/2023 FINDINGS: Portable supine AP views of the abdomen were obtained on 2 images. The diaphragm is excluded by collimation. There is high density contrast inthe left upper quadrant presumably within the stomach. There is gaseous distention of the colon. There is a small amount of residual contrast in the right colon and rectum. No abnormally dilated loops of intestine are identified to suggest obstruction. There is degenerative change of the spine. Bilateral hip replacements noted. IMPRESSION: No evidence of bowel obstruction. > Interpreting Provider: Neo Cline MD on 10/23/2023 12:36 PM Mark Rios MD DIAGNOSTIC IMAGING O RDERABLES * FL MODIFIED BARIUM SWALLOW W/SPEECH (10/21/2023 10:22 AM CDT) Anatomical Region Laterality Modality Chest Radio Fluoroscop y 10/21/2023 11:2 2 AM CDT Impressions 10/21/2023 11:22 AM CDT IMPRESSION: Modified barium swallow fluoroscopy as described. Please see detailed report from speech pathology staff. > Interpreting Provider: Puneet Gerber MD on 10/21/2023 11:22 AM Narrative 10/21/2023 11:22 AM CDT MODIFIED BARIUM SWALLOW WITH SPEECH EVALUATION PROCEDURE: ??FL SWALLOWING FUNCTION STUDY CLINICAL INFORMATION (none relevant/not provided if blank): Indication: R13.12: Dysphagia, oropharyngeal phase Additional History: Additional History: Dysphagia, oropharyngeal phase Technique: Modified barium swallow fluoroscopy performed in conjunction with speech pathology staff. The speech pathologist administered varying thickness barium liquids and solids under direct Cine fluoroscopy. Videotape capture images may have been stored, contact speech pathology for details if needed. FLUOROSCOPY DOSE: ??19.19 mGy Reference air kerma (ka,r) in mGy. FINDINGS: . . Thin liquid: ? No penetration or aspiration. [place] thickness: ? No penetration or aspiration. ?? Honey thickness: ? No penetration or aspiration. ?? Pudding thickness: ? No penetration or aspiration. ?? Solid cookie product: ??No penetration or aspiration. ?? Procedure Note Puneet Gerber MD - 10/21/2023 MODIFIED BARIUM SWALLOW WITH SPEECH EVALUATION PROCEDURE: FL SWALLOWING FUNCTION STUDY CLINICAL INFORMATION (none relevant/not provided if blank): Indication: R13.12: Dysphagia, oropharyngeal phase Additional History: Additional History: Dysphagia, oropharyngeal phase Technique: Modified barium swallow fluoroscopy performed in conjunction with speech pathology staff. The speech pathologist administered varying thickness barium liquids and solids under direct Cine fluoroscopy. Videotape capture images may have been stored, contact speech pathologyfor details if needed. FLUOROSCOPY DOSE: 19.19 mGy Reference air kerma (ka,r) in mGy. FINDINGS: . . Thin liquid: No penetration or aspiration. [place] thickness: No penetration or aspiration. Honey thickness: No penetration or aspiration. Pudding thickness: No penetration or aspiration. Solid cookie product: No penetration or aspiration. IMPRESSION: Modified barium swallow fluoroscopy as described. Please see detailed report from speech pathology staff. > Interpreting Provider: Puneet Gerber MD on 10/21/2023 11:22 AM Jayme Rodriguez MD FLUOROSCOPY ORDERABL ES * SLIDE SCAN HEMATOLOGY (10/21/2023 3:41 AM CDT) Only the most recent of6 resultswithin the time period is included. RBC Morphology NORMAL 10/21/2023 6:55 AM CDT [facility] Blood BLOOD SPECIMEN / Unknown Lab Venipuncture / Unknown 10/21/2023 3:41 AM CDT 10/21/2023 3:43 AM CDT Tamara Bauman MD LAB - HEMATOLOGY ORD ERABLES [facility] [address] [place] [address] * EEG (10/20/2023 12:00 PM CDT) 10/20/2023 12:0 0 PM CDT Narrative Procedure Note Yanira Luna MD - 10/20/2023 7:17 PM CDT [facility] Electroencephalogram Report PATIENT NAME: JOSÉ MIGUEL KEYS MR#: [id number] ROOM#: [id number] CSN: [id number] ADMISSION DATE: 10/12/2023 SEX: M : 1950 DATE OF TEST: 10/20/2023 EEG NUMBER: This is a routine 17-channel EEG tracing consisted of 16 channels of EEGand 1 channel of EKG monitoring performed on a 72-year-old patient presentedwith mental status changes. The condition of the patient during tracing wasreported to be drowsy. Quality of the study was good. The background activity consisted of moderate amplitude 4-7 Hz thetarhythm. The background was poorly organized without good posterior to anteriorgradient. Photic stimulation did not elicit any abnormalities. There were noepileptiform discharges noticed. The EKG tracing showed a regular heart rate. IMPRESSION: This is an abnormal EEG with generalized background slowingand poor organization, which is consistent with mild encephalopathy. Therewere no epileptiform discharges noticed. The above findings are nonspecific,which could be seen in the settings of metabolic, toxic, hypoxic, orinfectious etiologies. Clinical correlation is suggested. DICTATOR: YANIRA LUNA M.D. MP/MODL #:[id number] cc: Yanira Luna M.D. Yanira Luna MD NEUROLOGY ORDERABLES [facility] * (ABNORMAL) SODIUM BLOOD (10/19/2023 4:39 PM CDT) Sodium 155(H) 136 - 145 mmol/L 10/19/2023 4:55 PM CDT [facility] Blood BLOOD SPECIMEN / Unknown Lab Venipuncture / Unknown 10/19/2023 4:39 PM CDT 10/19/2023 4:42 PM CDT Jayme Rodriguez MD LAB - CHEMISTRY ORDMarj KLINE Performing Organization Address [facility] Co de Phone Number [facility] [address] [place] [address] * (ABNORMAL) BLOOD GASES ART + COOX PANEL (10/17/2023 9:17 PM CDT) Only the most recent of9 resultswithin the time period is included. pH Arterial 7.39 7.35 - 7.45 pH 10/17/2023 9:23 PM CDT [facility] pCO2 Arterial 57(H) 35 - 45 mmHg 9:23 PM CDT [facility] pO2 Arterial 135(H) 80 - 100 mmHg 10/17/2023 9:23 PM CDT [facility] HCO3 Arterial 34.5(H) 22.0 - 26.0 mmol/L 10/17/2023 9:23 PM CDT [facility] BE Arterial 7.8(H) -2.0 - 2.0 mmol/L 10/17/2023 9:23 PM CDT [facility] Oxyhemoglobin Arterial 97.5 % 10/17/2023 9:23 PM CDT [facility] Dexoyhemoglobin (HHB) % <1.0 % 10/17/2023 9:23 PM CDT [facility] O2 Content Arterial 16.8 Interpret within clinical context ml/dL 10/17/2023 9:23 PM CDT [facility] O2 Saturation Arterial 100 90 - 100 % 10/17/2023 9:23 PM CDT [facility] Methemoglobin <0.8 0.0 - 2.0 % 10/17/2023 9:23 PM CDT [facility] Carboxyhemoglobin 2.0 0.0 - 2.0 % 2023 9:23 PM CDT [facility] Hemoglobin by COOX 12.1 12.0 - 17.6 g/dL 10/17/2023 9:23 PM CDT [facility] Malik's Test Positive 10/17/2023 9:23 PM CDT [facility] Sample Site Right RA 10/17/2023 9:23 PM CDT [facility] O2 Device Cannula 10/17/2023 9:23 PM CDT [facility] Liter Flow (LPM) 3 10/17/19 9:23 PM CDT [facility] P/F Ratio 10/17/2023 9:23 PM T [facility] Comment:C^Incalculable Blood, arterial ARTERIAL BLOOD SPECIMEN / Unknown 10/17/2023 9:17 PM CDT 10/17/2023 9:17 PM CDT Omi Fortune MD LAB - BLOOD GASES ORDERABLES Performing Organization Address [facility] Co de Phone Number [facility] [address] [phone] * AMMONIA (10/17/2023 12:33 PM CDT) Only the most recent of4 resultswithin the time period is included. Ammonia 26 18 - 72 umol/L 10/17/2023 12:53 PM CDT [facility] Blood BLOOD SPECIMEN / Unknown Lab Venipuncture / Unknown 10/17/2023 12:33 PM CDT 10/17/2023 12:44 PM CDT Omi Fortune MD LAB - CHEMI STRY ORDERABLES Performing Organization Address City/[facility]/ZIP Co de Phone Number [facility] [address] [place] [phone] * (ABNORMAL) C-REACTIVE PROTEIN (10/17/2023 11:23 AM CDT) Only the most recent of9 resultswithin the time period is included. C-Reactive Protein 8.84(H) <=0.50 mg/dL 10/17/2023 11:57 AM CDT [facility] Blood BLOOD SPECIMEN / Unknown Lab Venipuncture / Unknown 10/17/2023 11:23 AM CDT 10/17/2023 11:47 AM CDT Aneta Campbell DO LAB - CHEMISTRY O RDERABLES [facility] [address] [place] [address] * CT HEAD WO CONTRAST (10/17/2023 10:37 AM CDT) Only the most recent of3 resultswithin the time period is included. Anatomical Region Laterality Modality Head Computed Tomogra phy 10/17/2023 10:4 5 AM CDT Impressions 10/17/2023 10:48 AM CDT IMPRESSION: No acute intracranial abnormality. Chronic changes as noted above. > Interpreting Provider: Tod Marquez MD on 10/17/2023 10:48 AM Narrative 10/17/2023 10:48 AM CDT PROCEDURE: ??CT HEAD WO CONTRAST DATE/TIME OF EXAM: ??10/17/2023 10:41 AM CLINICAL INFORMATION: None relevant/not provided if blank. Indication: J96.00: Acute respiratory failure, unspecified whether with hypoxia or hypercapnia (HCC) Additional History: Lethargy and bacteremia COMPARISON: None. TECHNIQUE: Noncontrast CT brain was performed utilizing standard protocol. CT dose reduction technique was used, including Automated Exposure Control. FINDINGS: BRAIN: No acute infarct, hemorrhage, or mass. Mild supratentorial white matter hypodensities are nonspecific but likely reflect the sequelae of chronic microvascular/hypertensive changes. EXTRA-AXIAL: Ventricles, cisterns, and sulci are unremarkable. No hydrocephalus. Incidental cavum septa pellucidum er vergae. SKULL: No fracture or osseous lesion. SINUSES/MASTOIDS: Clear. ORBITS: Bilateral lens implants. SOFT TISSUES: Unremarkable. Procedure Note Tod Marquez MD - 10/17/2023 PROCEDURE: CT HEAD WO CONTRAST DATE/TIME OF EXAM: 10/17/2023 10:41 AM CLINICAL INFORMATION: None relevant/not provided if blank. Indication: J96.00: Acute respiratory failure, unspecified whether with hypoxia or hypercapnia (HCC) Additional History: Lethargy and bacteremia COMPARISON: None. TECHNIQUE: Noncontrast CT brain was performed utilizing standard protocol. CT dose reduction technique was used, including Automated ExposureControl. FINDINGS: BRAIN: No acute infarct, hemorrhage, or mass. Mild supratentorial white matter hypodensities are nonspecific but likely reflect the sequelae of chronic microvascular/hypertensive changes. EXTRA-AXIAL: Ventricles, cisterns, and sulci are unremarkable. No hydrocephalus. Incidental cavum septa pellucidum er vergae. SKULL: No fracture or osseous lesion. SINUSES/MASTOIDS: Clear. ORBITS: Bilateral lens implants. SOFT TISSUES: Unremarkable. IMPRESSION: No acute intracranial abnormality. Chronic changes as noted above. > Interpreting Provider: Tod Marquez MD on 10/17/2023 10:48 AM Omi Fortune MD CT ORDERABL ES * CT CHEST ABDOMEN PELVIS WO CONT (10/16/2023 11:25 AM CDT) Only the most recent of2 resultswithin the time period is included. Anatomical Region Laterality Modality Chest, Abdomen, Pelvis Computed Tomography 10/16/2023 3:50 PM CDT Impressions 10/16/2023 3:59 PM CDT IMPRESSION: Moderate bilateral loculated pleural effusions. Slightly nodular hepatic contour which could be seen in the setting of cirrhosis. Recommend correlation with liver function tests. Distended gallbladder without stone or ductal dilation. If there is strong clinical concern for cholecystitis, ultrasound may assist with further evaluation. Mild fluid/ascites in the left abdomen. This is slightly hyperdense and could reflect posttraumatic changes/evolving blood products given an adjacent soft tissue contusion injury in the left lateral soft tissues and a mildly displaced left posterior 11th rib fracture. No free air identified. Subtle hazy stranding in the upper abdominal mesentery which could reflect posttraumatic changes/mesenteric injury or mesenteritis. This is in proximity of the pancreas however is felt less likely reflect pancreatitis. Recommend correlation with patient history and lipase. Diffuse bladder wall thickening which could be seen in the setting of cystitis. Recommend correlation with urinalysis. > Interpreting Provider: Tod Marquez MD on 10/16/2023 3:59 PM Narrative 10/16/2023 3:59 PM CDT PROCEDURE: ??CT CHEST ABDOMEN PELVIS WO CONT DATE/TIME OF EXAM: ??10/16/2023 11:25 AM CLINICAL INFORMATION: None relevant/not provided if blank. Indication: A41.89: Other specified sepsis (HCC) Additional History: Sepsis COMPARISON: None. TECHNIQUE: CT of the chest, abdomen, and pelvis' without contrast was performed utilizing standard protocol. CT dose reduction technique was used, including Automated Exposure Control. FINDINGS: Lungs/Pleura: Punctate calcified granuloma in the right upper lobe. Loculated bilateral pleural effusions. Bilateral atelectasis. Low lung volumes. Vasculature: No pulmonary arterial enlargement. [place]/Mediastinum: Calcified lymph nodes compatible with the sequelae of prior granulomatous disease. Cardiac: Severe coronary atherosclerosis. No enlargement or pericardial effusion. Chest Wall: No mass or axillary adenopathy. Liver: Focal fatty infiltration adjacent to the falciform ligament. Slightly nodular hepatic contour of the liver which could be seen in the setting of cirrhosis. Biliary: Distended gallbladder without stone or ductal dilation. Pancreas: Severe parenchymal atrophy without mass or ductal dilation. Spleen: No enlargement or focal lesion. Small splenule. Kidneys: Mild bilateral cortical renal atrophy. No hydronephrosis or calcification. Adrenals: No mass or enlargement. Vascular: No aneurysm. Moderate atherosclerosis. Retroperitoneum: Subcentimeter lymph nodes are nonspecific and likely reactive. Bowel/Mesentery: Distended stomach. No obstruction or mass. Mild stool burden. No pericecal inflammation. No significant bowel wall thickening. Subtle inflammatory stranding in the upper abdominal mesentery which is near the pancreas but not definitely arising from the pancreas. Mild fluid in the left abdomen with slightly elevated density which could reflect evolving blood products. No free air. Abdominal Wall: Edema and inflammatory stranding in the left. The right lateral soft tissues. Small fat-containing umbilical hernia. Urinary bladder: The bladder is not well evaluated due to significant streak artifact though the wall appears thickened and there appears to be a Cabral catheter. Pelvic Nodes: No adenopathy. Pelvic Organs: Not well evaluated due to streak artifact. Bones: Mildly displaced fracture of the posterior left 11th rib. Grade 1 anterolisthesis of L4 on L5. Fusion of the L1 and L2 vertebral bodies. Severe degenerative changes throughout the spine. Mild lumbar levocurvature and thoracic dextrocurvature. Bilateral hip arthroplasties. Other: Negative. Procedure Note Tod Marquez MD - 10/16/2023 PROCEDURE: CT CHEST ABDOMEN PELVIS WO CONT DATE/TIME OF EXAM: 10/16/2023 11:25 AM CLINICAL INFORMATION: None relevant/not provided if blank. Indication: A41.89: Other specified sepsis (HCC) Additional History: Sepsis COMPARISON: None. TECHNIQUE: CT of the chest, abdomen, and pelvis' without contrast was performed utilizing standard protocol. CT dose reduction technique was used, including Automated ExposureControl. FINDINGS: Lungs/Pleura: Punctate calcified granuloma in the right upper lobe. Loculated bilateral pleural effusions. Bilateral atelectasis. Low lung volumes. Vasculature: No pulmonary arterial enlargement. Sierra/Mediastinum: Calcified lymph nodes compatible with the sequelae of prior granulomatous disease. Cardiac: Severe coronary atherosclerosis. No enlargement or pericardial effusion. Chest Wall: No mass or axillary adenopathy. Liver: Focal fatty infiltration adjacent to the falciform ligament. Slightly nodular hepatic contour of the liver which could be seen in the setting of cirrhosis. Biliary: Distended gallbladder without stone or ductal dilation. Pancreas: Severe parenchymal atrophy without mass or ductal dilation. Spleen: No enlargement or focal lesion. Small splenule. Kidneys: Mild bilateral cortical renal atrophy. No hydronephrosis or calcification. Adrenals: No mass or enlargement. Vascular: No aneurysm. Moderate atherosclerosis. Retroperitoneum: Subcentimeter lymph nodes are nonspecific and likely reactive. Bowel/Mesentery: Distended stomach. No obstruction or mass. Mild stool burden. No pericecal inflammation. No significant bowel wall thickening. Subtle inflammatory stranding in the upper abdominal mesentery which is near the pancreas but not definitely arising from the pancreas. Mildfluid in the left abdomen with slightly elevated density which could reflect evolving blood products. No free air. Abdominal Wall: Edema and inflammatory stranding in the left. The right lateral soft tissues. Small fat-containing umbilical hernia. Urinary bladder: The bladder is not well evaluated due to significant streak artifact though the wall appears thickened and there appears to yane Cabral catheter. Pelvic Nodes: No adenopathy. Pelvic Organs: Not well evaluated due to streak artifact. Bones: Mildly displaced fracture of the posterior left 11th rib. Grade 1 anterolisthesis of L4 on L5. Fusion of the L1 and L2 vertebral bodies. Severe degenerative changes throughout the spine. Mild lumbarlevocurvature and thoracic dextrocurvature. Bilateral hip arthroplasties. Other: Negative. IMPRESSION: Moderate bilateral loculated pleural effusions. Slightly nodular hepatic contour which could be seen in the setting of cirrhosis. Recommend correlation with liver function tests. Distended gallbladder without stone or ductal dilation. If there isstrong clinical concern for cholecystitis, ultrasound may assist with further evaluation. Mild fluid/ascites in the left abdomen. This is slightly hyperdense and could reflect posttraumatic changes/evolving blood products given an adjacent soft tissue contusion injury in the left lateral soft tissuesand a mildly displaced left posterior 11th rib fracture. No free air identified. Subtle hazy stranding in the upper abdominal mesentery which couldreflect posttraumatic changes/mesenteric injury or mesenteritis. This is in proximity of the pancreas however is felt less likely reflectpancreatitis. Recommend correlation with patient history and lipase. Diffuse bladder wall thickening which could be seen in the setting of cystitis. Recommend correlation with urinalysis. > Interpreting Provider: Tod Marquez MD on 10/16/2023 3:59 PM Omi Fortune MD CT ORDERABL ES * CT FEMUR LEFT WO CONTRAST (10/15/2023 12:37 PM CDT) Only the most recent of2 resultswithin the time period is included. Anatomical Region Laterality Modality Lower Extremity Computed Tomogra phy 10/15/2023 12:5 0 PM CDT Impressions 10/15/2023 12:59 PM CDT IMPRESSION: 1. Progressive diffuse subcutaneous edema of uncertain etiology or significance. 2. There is no organized fluid collection or suspicious abscess. 3. No or soft tissue gas collection is seen to suggest a necrotizing infection. 4. There is no deep soft tissue or muscular involvement that would be concerning for a compartment syndrome. 5. Progressive subcutaneous edema in the panniculus and intra-abdominal ascites. There may well be a component of anasarca > Interpreting Provider: Alberto Atwood MD on 10/15/2023 12:59 PM Narrative 10/15/2023 12:59 PM CDT PROCEDURE: ??CT FEMUR LEFT WO CONTRAST DATE/TIME OF EXAM: ??10/15/2023 12:45 PM CLINICAL INFORMATION: None relevant/not provided if blank. Indication: A41.89: Other specified sepsis (HCC) Additional History: COMPARISON: Same study done October 11 only 3 days earlier TECHNIQUE: CT of the lower pelvis and left femur was performed utilizing standard protocol. No contrast was utilized CT dose reduction technique was used, including Automated Exposure Control. FINDINGS: The exam is compromised due to artifact from bilateral hip replacements as well as by the lack of intravenous contrast. There appears to be increasing intra-abdominal ascites tracking down the left paracolic gutter. The urinary bladder is distended Previously the subcutaneous inflammatory change and skin thickening was along the medial proximal left thigh. The pattern is now more diffuse in the subcutaneous tissues still with more medial skin thickening. There is some more dependent edema along the mid to distal shaft of the femur. There is however no organized fluid collection or suspicious abscess. There is no air within the soft tissues. The deep soft tissues appear an involved. The fascial planes are well defined. There is no muscular edema. There is a left hip prosthesis in place. There is no obvious fracture deformity. There is a suprapatellar joint effusion and fairly advanced degenerative changes in the knee. There is also subcutaneous edema distal to the knee. Arterial and/or venous vascular compromise cannot be assessed without contrast Procedure Note Alberto Atwood MD - 10/15/2023 PROCEDURE: CT FEMUR LEFT WO CONTRAST DATE/TIME OF EXAM: 10/15/2023 12:45 PM CLINICAL INFORMATION: None relevant/not provided if blank. Indication: A41.89: Other specified sepsis (HCC) Additional History: COMPARISON: Same study done October 11 only 3 days earlier TECHNIQUE: CT of the lower pelvis and left femur was performed utilizing standard protocol. No contrast was utilized CT dose reduction technique was used, including Automated ExposureControl. FINDINGS: The exam is compromised due to artifact from bilateral hip replacementsas well as by the lack of intravenous contrast. There appears to be increasing intra-abdominal ascites tracking down the left paracolic gutter. The urinary bladder is distended Previously the subcutaneous inflammatory change and skin thickening was along the medial proximal left thigh. The pattern is now more diffuse in the subcutaneous tissues still with more medial skin thickening. Thereis some more dependent edema along the mid to distal shaft of the femur.There is however no organized fluid collection or suspicious abscess. There isno air within the soft tissues. The deep soft tissues appear an involved. The fascial planes are well defined. There is no muscular edema. There is a left hip prosthesis in place. There is no obvious fracture deformity. There is a suprapatellar joint effusion and fairly advanced degenerative changes in the knee. There is also subcutaneous edema distal to the knee. Arterial and/or venous vascular compromise cannot be assessed without contrast IMPRESSION: 1. Progressive diffuse subcutaneous edema of uncertain etiology or significance. 2. There is no organized fluid collection or suspicious abscess. 3. No or soft tissue gas collection is seen to suggest a necrotizing infection. 4. There is no deep soft tissue or muscular involvement that would be concerning for a compartment syndrome. 5. Progressive subcutaneous edema in the panniculus and intra-abdominal ascites. There may well be a component of anasarca > Interpreting Provider: Alberto Atwood MD on 10/15/2023 12:59 PM Omi Fortune MD CT ORDERABL ES * (ABNORMAL) PHOSPHORUS BLOOD (10/15/2023 4:44 AM CDT) Only the most recent of49 resultswithin the time period is included. Phosphorus 5.3(H) 2.3 - 4.7 mg/dL 10/15/2023 5:14 AM CDT [facility] Blood BLOOD SPECIMEN / Unknown Lab Venipuncture / Unknown 10/15/2023 4:44 AM CDT 10/15/2023 4:47 AM CDT Kalia Berry MD LAB - CHEMISTRY ROYCE KLINE [facility] Organization Address City/State/ZIP Co de Phone Number [facility] [address] [place] [address] * (ABNORMAL) CK BLOOD (10/15/2023 4:44 AM CDT) Only the most recent of12 resultswithin the time period is included. CK 440(H) 30 - 200 U/L 10/15/2023 5:14 AM CDT [facility] Blood BLOOD SPECIMEN / Unknown Lab Venipuncture / Unknown 10/15/2023 4:44 AM CDT 10/15/2023 4:47 AM CDT Kalia Berry MD LAB - CHEMISTRY ORDMarj KLINE Performing Organization Address [facility]/ZIP Co de Phone Number [facility] [address] [place] [address] * FOLATE (10/14/2023 3:37 AM CDT) Only the most recent of2 resultswithin the time period is included. Folate 12.4 7.0 - 31.4 ng/mL 10/14/2023 4:40 AM CDT [facility] Blood BLOOD SPECIMEN / Unknown Venipuncture / Unknown 10/14/2023 3:37 AM CDT 10/14/2023 3:47 AM CDT Halina Barraza MD LAB - CHEMISTRY ORDMarj KLINE Performing Organization Address [facility]/ZIP Co de Phone Number [facility] [address] [place] [address] * VANCOMYCIN LEVEL RANDOM (10/14/2023 3:37 AM CDT) Only the most recent of10 resultswithin the time period is included. Vancomycin Random 19.7 <=40.0 ug/mL 10/14/2023 4:05 AM CDT [facility] Blood BLOOD SPECIMEN / Unknown Venipuncture / Unknown 10/14/2023 3:37 AM CDT 10/14/2023 3:47 AM CDT Narrative [facility] - 10/14/2023 4:05 AM CDT No reference range available for random Vancomycin levels. All results interpreted by ordering physician. Nas Mcnally MD LAB - CHEMISTRY ROYCE KLINE Performing Organization Address City/[facility]/ZIP Co de Phone Number [facility] [address] [place] [address] * (ABNORMAL) IRON + TRANSFERRIN PANEL (10/14/2023 3:37 AM CDT) Iron 20(L) 50 - 175 ug/dL 10/14/2023 4:05 AM CDT [facility] Transferrin 152(L) 174 - 382 mg/dL 10/14/2023 4:05 AM CDT [facility] TIBC Calculated 190(L) 240 - 450 ug/dL 10/14/2023 4:05 AM CDT [facility] Iron Saturation % 11(L) 20 - 50 % 10/14/2023 4:05 AM CDT [facility] Blood BLOOD SPECIMEN / Unknown Venipuncture / Unknown 10/14/2023 3:37 AM CDT 10/14/2023 3:47 AM CDT Halina Barraza MD LAB - CHEMISTRY ROYCE KLINE Performing Organization Address [facility]/ZIP Co de Phone Number [facility] [address] [place] [address] * (ABNORMAL) URINALYSIS REFLEX TO MICROSCOPIC NO CULTURE (10/13/2023 2:24 PM CDT) Only the most recent of2 resultswithin the time period is included. Color UA Celia(A) Straw, Yellow 10/13/2023 2:45 PM CDT [facility] Clarity UA Cloudy(A) Clear 10/13/2023 2:45 PM CDT [facility] Glucose UA Negative Negative 10/13/2023 2:45 PM CDT [facility] Bilirubin UA Negative Negative 10/13/2023 2:45 PM CDT [facility] Ketone UA Negative Negative 10/13/2023 2:45 PM CDT [facility] Specific Meigs UA 1.028 1.005 - 1.030 10/13/2023 2:45 PM CDT [facility] Blood UA 3+(A) Negative 10/13/2023 2:45 PM CDT [facility] pH UA 5.0 5.0 - 8.0 pH 10/13/2023 2:45 PM CDT [facility] Protein UA 2+(A) Negative 10/13/2023 2:45 PM CDT [facility] Urobilinogen UA Negative Negative mg/dL 10/13/2023 2:45 PM CDT [facility] Nitrite UA Negative Negative 10/13/2023 2:45 PM CDT [facility] Leukocyte UA 2+(A) Negative 10/13/2023 2:45 PM CDT [facility] Urine Microscopy Urine microscopy to follow 10/13/2023 2:45 PM CDT [facility] Urine URINE SPECIMEN OBTAINED VIA [employer]HETER / Unknown Collection / Unknown 10/13/2023 2:24 PM CDT 10/13/2023 2:31 PM CDT Narrative [facility] - 10/13/2023 2:45 PM CDT Kalia Berry MD LAB - URINALYSIS ORD ERABLES Performing Organization Address City/[facility] Co de Phone Number [facility] [address] [place] [address] * (ABNORMAL) URINE MICROSCOPIC ONLY (10/13/2023 2:24 PM CDT) RBC UA >100(A) 0 - 5 # /hpf 10/13/2023 2:57 PM CDT [facility] WBC UA >100(A) 0 - 5 # /hpf 10/13/2023 2:57 PM CDT [facility] Bacteria UA None Seen None Seen 10/13/2023 2:57 PM CDT [facility] Squamous Epithelial Cells 3-5 0 - 5 /hpf 10/13/2023 2:57 PM CDT [facility] Urine URINE SPECIMEN OBTAINED VIA [employer]IN[employer]HE[employer] / Unknown Collection / Unknown 10/13/2023 2:24 PM CDT 10/13/2023 2:31 PM CDT Narrative [facility] - 10/13/2023 2:57 PM CDT Kalia Berry MD LAB - URINALYSIS ORD ERABLES Performing Organization Address City/[facility] Co de Phone Number [facility] [address] [place] [address] * LYTES (NA K CL) URINE RANDOM PANEL (10/13/2023 2:24 PM CDT) Sodium Urine <20 mmol/L 10/13/2023 2:55 PM CDT [facility] Potassium Urine 69.3 mmol/L 10/13/2023 2:55 PM CDT [facility] Chloride Urine <20.0 mmol/L 10/13/2023 2:55 PM CDT [facility] Urine URINE SPECIMEN OBTAINED BY CLEAN CATCH PROCEDURE / Unknown Collection / Unknown 10/13/2023 2:24 PM CDT 10/13/2023 2:31 PM CDT Kalia Berry MD LAB - URINE CHEMISTR Y ORDERABLES Performing Organization Address [facility] Co de Phone Number [facility] [address] [place] [address] * (ABNORMAL) HEMOGLOBIN A1C (10/13/2023 3:46 AM CDT) Only the most recent of3 resultswithin the time period is included. Hemoglobin A1c 6.5(H) <5.7 % 10/13/2023 5:17 AM CDT [facility] Estimated Average Glucose 140 mg/dL 10/13/2023 5:17 AM CDT [facility] Blood BLOOD SPECIMEN / Unknown Venipuncture / Unknown 10/13/2023 3:46 AM CDT 10/13/2023 3:55 AM CDT Narrative [facility] - 10/13/2023 5:17 AM CDT HbA1c Interpretation: Normal: < 5.7% Pre-diabetes: 5.7-6.4% Diabetes: Equal to or greater than 6.5% Test results diagnostic of diabetes should be repeated for confirmation. Treatment target values recommended by ADA and other clinical organizations should be used to evaluate metabolic control in patients. This test should not replace glucose testing for patients with Type 1 diabetes, pediatric patients, or women. ??Falsely low HbA1c results may be observed in patients with clinical conditions that shorten erythrocyte life span or decrease mean erythrocyte age such as the presence of unstable hemoglobin variants, elevated hemoglobin F level or other causes of hemolytic anemia. ??HbA1c may not accurately reflect glycemic control when clinical conditions that affect erythrocyte survival are present. ??Severe Iron deficiency anemia may yield falsely high results. ??Hemoglobin A1c assay should not be used to diagnose or monitor diabetes in patients with malignancy, recent blood transfusion, chronic kidney or liver disease. ?? This method may yield falsely low results when hemoglobin (HbF) exceeds 5% in the specimen. The [employer] Alinity assay for the measurement of HbA1c is a National Glycohemoglobin Standardization Program (NGSP) certified method. Halina Barraza MD LAB - CHEMISTRY ROYCE KLINE Performing Organization Address City/[facility]/ZIP Co de Phone Number [facility] [address] [place] [address] * (ABNORMAL) LACTIC ACID BLOOD (10/12/2023 11:36 AM CDT) Only the most recent of15 resultswithin the time period is included. Pathologist [facility] Lactic Acid 2.1(H) <=2 mmol/L 10/12/2023 12:01 PM CDT [facility] Blood BLOOD SPECIMEN / Unknown Venipuncture / Unknown 10/12/2023 11:36 AM CDT 10/12/2023 11:48 AM CDT Halina Barraza MD LAB - CHEMISTRY ROYCE KLINE Performing Organization Address [facility] Co de Phone Number [facility] [address] [place] [address] * ECHO COMPLETE W CONTRAST (10/12/2023 11:00 AM CDT) BSA 0 m2 SSM CV FUJ I PACS LV biplane EF 45 52 - 72 % SSM CV FUJI PACS LV A2C EF 43 48 - 76 % SSM CV FUJ I PACS LV A4C EF 47 46 - 74 % SSM CV FUJ I PACS LV stroke vol BP 50.1 mL SSM CV FUJI PACS LVOT stroke vol 42.38 mL SSM CV FUJI PACS LV stroke vol 2D teich 46.531 ml SSM CV FUJI PACS LV stroke vol index A4C MOD 52.694 ml/m2 SSM CV FUJI PACS LVIDd 4.88 4.2 - 5.8 cm SSM CV FUJI PACS LVIDs 3.89 2.5 - 4.0 cm SSM CV FUJI PACS IVSd 2D 1.128 0.6 - 1 cm SSM CV FUJI PACS LVPWd 1.02 0.6 - 1 cm SSM CV FUJI PACS Fractional Shortening 2D 20 28 - 44 % SSM CV FUJI PACS LV ESV BP 61.149 21 - 61 mL SSM CV FUJI PACS LV ESV A2C 58.562 15 - 75 mL SSM CV FUJI PACS LV EDV BP 111.262 62 - 150 mL SSM CV FUJI PACS LV ESV A4C 61.199 22 - 78 mL SSM CV FUJI PACS LV EDV A2C 107.08 59 - 175 mL SSM CV FUJI PACS LV EDV A4C 111.256 mL SSM CV FU JI PACS LV ESV 2D 65.386 21 - 61 mL SSM CV FUJI PACS LV EDV 2D 111.918 62 - 150 mL SSM CV FUJI PACS LVOT diam 2.1 cm SSM CV FUJ I PACS LVOT area 3.55 cm2 SSM CV FUJ I PACS LV RWT 0.416 SSM CV FUJ I PACS LV Murcia A2C 8.09 cm SSM CV F UJI PACS LV Murcia A4C 8.451 cm SSM CV F UJI PACS IVS/LVPW 1.11 SSM CV FUJ I PACS LV mass 2D 192.477 96 - 200 g SSM CV FUJI PACS MV E pk bertha 94.986 cm/s SSM CV F UJI PACS MV A pk bertha 0.35 cm/s SSM CV F UJI PACS MV E A ratio 271.50 SSM CV FUJI PACS MV DT 142 ms SSM CV FUJ I PACS TR pk bertha 194.5 cm/s SSM CV FUJ I PACS LVOT pk bertha 0.73 m/s SSM CV F UJI PACS LVOT mn bertha 0.47 m/s SSM CV F UJI PACS LVOT mn grad 1.1 mmHg SSM CV FUJI PACS LA vol BP A-L 80.52 mL SSM CV FUJI PACS RVIDd 4.5 cm SSM CV FUJ I PACS RA area 18.917 cm2 SSM CV FUJ I PACS AV mn grad 4 mmHg SSM CV FU JI PACS AV pk grad 6 mmHg SSM CV FU JI PACS AV mn bertha 1.04 m/s SSM CV FUJ I PACS AV pk bertha 1.21 m/s SSM CV FUJ I PACS AV VTI 19.694 cm SSM CV FUJ I PACS LVOT pk grad 2.121 mmHg SSM CV FUJI PACS LVOT VTI 11.933 cm SSM CV FUJ I PACS AV area cont VTI 2.2 cm2 SSM CV FUJI PACS AV area pk bertha 2.1 cm2 SSM C V FUJI PACS AV Doppler bertha index pk bertha 0.603 SSM CV FUJI PACS Dimensionless Index 0.606 SSM CV FUJI PACS MV decel slope 666.585 cm/s2 SSM C V FUJI PACS sPAP 30.1 mmHg SSM CV FUJ I PACS RVSP 30.1 mmHg SSM CV FUJ I PACS RAP 15.0 mmHg SSM CV FUJ I PACS TR pk grad 15 mmHg SSM CV FU JI PACS PV pk bertha 94.777 cm/s SSM CV FUJ I PACS PV pk grad 3 mmHg SSM CV FU JI PACS Ascending aorta 3.65 cm SSM CV FUJI PACS IVC size 3.0 cm SSM CV FUJ I PACS [id number] 6.792 cm SSM CV FUJ I PACS [id number] 7.103 cm SSM CV FUJ I PACS LA Size 5.523 cm SSM CV FUJ I PACS Anatomical Region Laterality Modality Ultrasound Narrative 10/12/2023 4:22 PM CDT ?Left??Ventricle: Not well visualized, but appears grossly normal in size. Definity enhanced images show complete opacification of the left ventricular cavity. Normal wall thickness. Mildly reduced systolic function. EF by 2D Moreno biplane is 45%. Normal wall motion. Unable to assess diastolic function due to abnormal rhythm. ?Right??Ventricle: Right ventricle is mildly dilated. Mildly reduced systolic function. ?Aortic??Valve: Mild regurgitation. ?Tricuspid??Valve: Trace regurgitation. The pulmonary artery systolic pressure is normal (under 35 mmHg). Left Ventricle Not well visualized, but appears grossly normal in size. Definity enhanced images show complete opacification of the left ventricular cavity. Normal wall thickness. Mildly reduced systolic function. EF by 2D Moreno biplane is 45%. Normal wall motion. Unable to assess diastolic function due to abnormal rhythm. Right Ventricle Right ventricle is mildly dilated. Mildly reduced systolic function. Left Atrium Left atrium size is normal. Right Atrium Right atrium size is normal. IVC/SVC IVC diameter is less than or equal to 21 mm and decreases greater than 50% during inspiration; therefore the estimated right atrial pressure is normal (~3 mmHg). Mitral Valve Valve structure is normal. No restricted motion. Trace regurgitation. No stenosis. Tricuspid Valve Valve structure is normal. No restricted motion. Trace regurgitation. The pulmonary artery systolic pressure is normal (under 35 mmHg). No stenosis. Aortic Valve Valve structure is trileaflet. No restricted motion. Mild regurgitation. No stenosis. Pulmonic Valve Valve structure is normal. No restricted motion. Mild regurgitation. No stenosis. Ascending Aorta Normal sized sinus of Valsalva (aortic root) and ascending aorta. Pericardium No pericardial effusion. Study Details Study quality was poor. A complete 2D, color Doppler, spectral Doppler and M- mode echocardiogram was performed. The apical, parasternal, subcostal and suprasternal views were obtained. Definity ultrasound enhancing agent used. Technical difficulties due to poor acoustic windows and patient intubated. Nas Mcnally MD ECHO CUPID * LIPASE BLOOD (10/12/2023 10:28 AM CDT) Lipase 6 <60 U/L 10/12/2023 10:53 AM CDT [facility] Blood BLOOD SPECIMEN / Unknown Venipuncture / Unknown 10/12/2023 10:28 AM CDT 10/12/2023 10:34 AM CDT Aneta Campbell DO LAB - CHEMISTRY O RDERABLES Performing Organization Address City/[facility]/ZIP Co de Phone Number [facility] [address] [place] [address] * CULTURE BLOOD (10/12/2023 8:52 AM CDT) Only the most recent of52 resultswithin the time period is included. Culture No growth day 5 UMESH 10/17/2023 9:30 AM CDT [facility] Blood PERIPHERAL BLOOD / Unknown Lab Venipuncture / Unknown 10/12/2023 8:52 AM CDT 10/12/2023 8:52 AM CDT Halina Barraza MD LAB - MICROBIOLOGY O RDERABLES Performing Organization Address [facility] Co de Phone Number [facility] [address] [place] [address], [facility] [phone] * (ABNORMAL) COAGULATION PANEL W D-DIMER (10/12/2023 5:03 AM CDT) PT 15.6(H) 12.1 - 14.8 sec 10/12/2023 5:45 AM CDT [facility] INR 1.2(H) 0.9 - 1.1 10/12/2023 5:45 AM CDT [facility] PTT 32.6 23.0 - 38.4 sec 10/12/2023 5:45 AM CDT [facility] Fibrinogen 546(H) 200 - 400 mg/dL 10/12/2023 5:45 AM CDT [facility] D-Dimer 0.91(H) 0.27 - 0.50 ug/mL FEU 10/12/2023 5:45 AM CDT [facility] Platelet Count 113(L) 150 - 420 x10E9/L 10/12/2023 5:45 AM CDT [facility] Blood BLOOD SPECIMEN / Unknown Lab Venipuncture / Unknown 10/12/2023 5:03 AM CDT 10/12/2023 5:13 AM CDT Narrative [facility] - 10/12/2023 5:45 AM CDT Conventional Warfarin Anticoagulant Therapy INR Reference Range: ??2.0-3.0 Intensive Warfarin Anticoagulant Therapy INR Reference Range: ? 2.5-3.5 Heparin Therapeutic Range for PTT: ??69.0 - 110.0 seconds. In the absence of clinical symptoms, a value less than or equal to 0.5 mcg/mL FEU significantly decreases the probability of PE/DVT (negative predictive value >95%). 1 mcg/ml FEU = 1 Fibrinogen Equivalent Unit (approximates 0.5 mcg/mL of D- dimer). ?ISTH DIAGNOSTIC SCORING SYSTEM FOR DIC ---- Score ?0 ? 1 ? 2 ? 3 ?? Platelet Count (x10^3/uL) ?> 100 ? <100 ? < 50 ?N/A PT Prolongation above ? Upper limit of normal ?0-3 ? 3-6 ? > 6 ?N/A Range (seconds) ? Fibrinogen (mg/dL) ? >100 ?< 100 ? N/A ?N/A ?? D-Dimer (mcg/mL FEU) ?< 0.50 ? N/A ?0.50-5.0 ?> 5 ?? Calculate Cumulative Score: > or = 5: compatible with overt DIC ? < 5: suggestive for non-overt DIC N/A = Non applicable Reference: Br. J. Haematol. ??145:24-33,2009. Nas Mcnally MD LAB - COAGULATION OR DERABLES [facility] [address] [place] [address] * EGD (05/12/2023 2:04 PM LEAD SYSTEMS DEVELOPER) Report Endoscopy POC Endoscopy Department Report _ Patient Name: José Miguel Keys ?Procedure Date: 05/12/2023 2:04 PM ? Date of : 1950 Classification: Outpatient ?Gender: Male Ethnicity: Not or ? Race: White _ Providers: ?Mikki George (Fellow) Referring MD: ? Procedure: ?Upper GI endoscopy Indications: ?Cirrhosis with suspected esophageal varices Medications: ?See the Anesthesia note for documentation of the ?administered medications Description of Procedure: Pre-Anesthesia Assessment: ?- Prior to the procedure, a History and Physical ?was performed, and patient medications and ?allergies were reviewed. The patient's tolerance of ?previous anesthesia was also reviewed. The risks ?and benefits of the procedure and the sedation ?options and risks were discussed with the patient. ?All questions were answered, and informed consent ?was obtained. Prior Anticoagulants: The patient has ?taken Eliquis (apixaban), last dose was day of ?procedure. ASA Grade Assessment: III - A patient ?with severe systemic disease. After reviewing the ?risks and benefits, the patient was deemed in ?satisfactory condition to undergo the procedure. ?After obtaining informed consent, the endoscope was ?passed under direct vision. Throughout the ?procedure, the patient's blood pressure, pulse, and ?oxygen saturations were monitored continuously. The ?Endoscope was introduced through the mouth, and ?advanced to the second part of duodenum. The upper ?GI endoscopy was accomplished without difficulty. ?The patient tolerated the procedure well. ? Findings: ? Small (< 5 mm) varices were found in the lower third of the esophagus. ? Scattered mild inflammation characterized by erosions and erythema was ? found in the gastric body and in the gastric antrum. Biopsies not taken ? as patient on Eliquis. ? Localized mild inflammation characterized by erosions and erythema was ? found in the duodenal bulb. Biopsies not taken as patient on Eliquis. ? The cardia and gastric fundus were normal on retroflexion. ? Estimated Blood Loss: ? Estimated blood loss: none. Complications: ?No immediate complications. Impression: ? - Small (< 5 mm) esophageal varices. ?- Gastritis. ?- Duodenitis. ?- No specimens collected as patient on [facility]. Recommendation: ? - Patient has a contact number available for ?emergencies. The signs and symptoms of potential ?delayed complications were discussed with the ?patient. Return to normal activities tomorrow. ?Written discharge instructions were provided to the ?patient. ?- Discharge patient to home. ?- Resume previous diet. ?- Continue present medications. ?- Repeat upper endoscopy in 1 year for surveillance. ?- Return to liver clinic as previously scheduled. ?- Perform an H. pylori stool antigen (HpSA) test. ? Attending Participation: ??I was present and participated during the entire ?procedure, including non-glaser portions. ? Procedure Code(s): ? --- Professional --- ? 34441, Esophagogastroduo denoscopy, flexible, transoral; diagnostic, ? including collection of specimen(s) by brushing or washing, when ? performed (separate procedure) Diagnosis Code(s): ?--- Professional --- ?K74.60, Unspecified cirrhosis of liver ?I85.10, Secondary esophageal varices without ?bleeding ?K29.70, Gastritis, unspecified, without bleeding ?K29.80, Duodenitis without bleeding CPT copyright 2022 [employer]. All rights reserved. The codes documented in this report are preliminary and upon call center assistant review may be revised to meet current compliance requirements. Twin Miller, 05/12/2023 2:44:06 PM Note Initiated On: 05/12/2023 2:04 PM Number of Addenda: 0 ? [facility] ? [address] [place] [address] [facility] 05/12/2023 2:04 PM LEAD SYSTEMS DEVELOPER Twin Miller MD GI PROCEDURE O RDERABLES Performing Organization Address [facility] Co de Phone Number [facility] * PT-INR (03/08/2023 1:49 PM CDT) Only the most recent of17 resultswithin the time period is included. Pathologist [facility] INR 1.0 [facility] Comment: Reference Range ? 0.9-1.1 Moderate-intensity Warfarin Therapy 2.0-3.0 Higher-intensity Warfarin Therapy ?? 3.0-4.0 PT 11.0 9.0 - 11.5 sec [facility] Comment: For additional information, please refer to http://education.[email or web address]/faq/FPY822 (This link is being provided for informational/ educational purposes only.) REPORT COMMENT: FASTING:NO Test Performed at: [email or web address] ??[id number] DORIAN CRUZ MD 03/08/2023 1:49 PM CDT 03/08/2023 1:50 PM CDT Jackelyn Licona MD LAB - COAGULATION OR DERABLES Performing Organization Address City/[facility]/ZIP Co de Phone Number [address] [address] * (ABNORMAL) CBC W/O DIFFERENTIAL (03/08/2023 1:47 PM CDT) Only the most recent of19 resultswithin the time period is included. Pathologist [facility] White Blood Cell Count 11.4(H) 3.8 - 10.8 Thousand/u L [facility] RBC 4.24 4.20 - 5.80 Million/uL [facility] Hemoglobin 12.6(L) 13.2 - 17.1 g/dL [facility] Hematocrit 39.0 38.5 - 50.0 % [facility] MCV 92.0 80.0 - 100.0 fL [facility] MCH 29.7 27.0 - 33.0 pg [facility] MCHC 32.3 32.0 - 36.0 g/dL [facility] RDW 12.8 11.0 - 15.0 % [facility] Platelet Count 129(L) 140 - 400 Thousand/u L [facility] MPV 13.6(H) 7.5 - 12.5 fL [facility] Comment: Test Performed at: [email or web address] ??[phone] CELSA SINGLETON,PHD 03/08/2023 1:47 PM CDT 03/08/2023 1:47 PM CDT Jackelyn Licona MD LAB - HEMATOLOGY ORD ERABLES [facility] [address] [place] [address] * PATHOLOGY TISSUE (10/07/2022 1:53 PM CDT) Only the most recent of2 resultswithin the time period is included. [facility] Case Report Surgical Pathology Report ? Case: [id number] ? Authorizing Provider: ??Jackelyn Licona MD ? Collected: ? 10/07/2022 01:53 PM ? Ordering Location: ? [facility] ?Received: ?10/07/2022 02:55 PM ? Pathologist: ? Paz Claudio MD ? Specimen: ?Gastric, gastric biopsies r/o h. pylori ? 10/08/2022 2:17 PM [facility] Final Diagnosis Stomach, biopsy (A): - Antral and oxyntic mucosa: proton pump inhibitor effect in oxyntic mucosa; negative for inflammation and Helicobacter on H and E stain 10/08/2022 2:17 PM [facility] Microscopic Description and Comment Microscopic examination substantiates the final diagnosis. 10/08/2022 2:17 PM [facility] Clinical History The patient is a 71 years old man with portal hypertension, rule out esophageal varices. Operative findings/procedure: Erythematous mucosa in the antrum, biopsied. No polyps mentioned. 10/08/2022 2:17 PM [facility] Gross Description The requisition and specimen(s) are identified with the patient's name José Miguel Keys. Received in formalin, specimen A , are 6 pink-poe tissues, 0.1-0.4 cm in greatest dimension and 1.4 x 0.2 x 0.1 cm in aggregate, submitted in toto in cassette A1. DF 10/08/2022 2:17 PM [facility] Disclaimer The performance characteristics of all immunohistochemical and indirect immunofluorescence stains (if any) cited in this report were determined by the Histopathology Laboratory of [facility]. Some of these tests were developed by our own laboratory and have not been cleared or approved by the US Food and Drug Administration. The FDA does not require this test to go through premarket FDA review. These tests are used for clinical purposes. They should not be regarded as investigational or for research. This laboratory is certified under the Clinical Laboratory Improvement Amendments (CLIA) as qualified to perform high complexity clinical laboratory testing. This case has been personally reviewed and interpreted by the attending (teaching) pathologist. 10/08/2022 2:17 PM CDT [facility] Embedded Images 10/08/2022 2:17 PM CDT [facility] Biopsy, NOS GASTRIC CONTENTS SPECIMEN / Unknown 10/07/2022 1:53 PM CDT 10/07/2022 2:55 PM CDT Comment:Pre-op diagnosis: 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 (CMS/HCC) [K75.81, K74.60] Jackelyn Licona MD LAB - PATHOLOGY/CYTO LOGY ORDERABLES [facility] [address] [place] [address], [facility] [phone] * EGD (10/07/2022 1:17 PM CDT) Report Endoscopy POC Endoscopy Department Report _ Patient Name: José Miguel Keys ?Procedure Date: 10/07/2022 1:17 PM ? Date of : 1950 Classification: Outpatient ?Gender: Male Ethnicity: Not or ? Race: White _ Providers: ?Jackelyn Licona Referring MD: ? Procedure: ?Upper GI endoscopy Indications: ?Portal hypertension rule out esophageal varices Medications: ?Monitored Anesthesia Care Description of Procedure: After obtaining informed consent, the endoscope was ?passed under direct vision. Throughout the ?procedure, the patient's blood pressure, pulse, and ?oxygen saturations were monitored continuously. The ?[id number]-[id number] was introduced through the mouth, and ?advanced to the second part of duodenum. The upper ?GI endoscopy was accomplished without difficulty. ?The patient tolerated the procedure well. ? Findings: ? Esophagogastric landmarks were identified: the Z-line was found at 41 ? cm, the upper extent of the gastric folds was found at 41 cm and the ? site of hiatal narrowing was found at 41 cm from the incisors. ? There is no endoscopic evidence of varices in the lower third of the ? esophagus. ? Mild portal hypertensive gastropathy was found in the gastric body. ? Patchy mildly erythematous mucosa without bleeding was found in the ? gastric antrum. Biopsies were taken with a cold forceps for histology. ? The pathology specimen was placed into Bottle A. ? One oozing superficial duodenal ulcer with oozing hemorrhage (Ernesto ? Class Ib) was found in the duodenal bulb. The lesion was 6 mm in largest ? dimension. Coagulation for hemostasis using heater probe was successful. ? For hemostasis, one hemostatic clip was successfully placed (MR ? conditional). There was no bleeding at the end of the procedure. ? The exam of the duodenum was otherwise normal. ? Estimated Blood Loss: ? Estimated blood loss was minimal. Complications: ?No immediate complications. Impression: ? - Esophagogastric landmarks identified. ?- Portal hypertensive gastropathy. ?- Erythematous mucosa in the antrum. Biopsied. ?- Oozing duodenal ulcer with oozing hemorrhage ?(Ernesto Class Ib). Treated with a heater probe. ?Clip (MR conditional) was placed. Recommendation: ? - Patient has a contact number available for ?emergencies. The signs and symptoms of potential ?delayed complications were discussed with the ?patient. Return to normal activities tomorrow. ?Written discharge instructions were provided to the ?patient. ?- Resume previous diet. ?- Resume Eliquis (apixaban) at prior dose on Tuesday ?morning. ?- Increase Prilosec (omeprazole) 40 mg twice daily. ?- Repeat EGD in 2-3 years. ? Attending Participation: ??I personally performed the entire procedure. ? Procedure Code(s): ? --- Professional --- ? 74341, Esophagogastroduod enoscopy, flexible, transoral; with biopsy, ? single or multiple Diagnosis Code(s): ?--- Professional --- ?K76.6, Portal hypertension ?K31.89, Other diseases of stomach and duodenum ?K26.4, Chronic or unspecified duodenal ulcer with ?hemorrhage CPT copyright 2019 [employer]. All rights reserved. The codes documented in this report are preliminary and upon call center assistant review may be revised to meet current compliance requirements. Jackelyn Licona, 10/07/2022 2:23:01 PM Note Initiated On: 10/07/2022 1:17 PM Number of Addenda: 0 ? [facility] ? [address] PROVATION 10/07/2022 1:17 PM CDT Jackelyn Licona MD GI PROCEDURE ORDERAB LES [facility] PROVATION * (ABNORMAL) ERYTHROCYTE SEDIMENTATION RATE (08/23/2022 8:24 PM CDT) Only the most recent of7 resultswithin the time period is included. Erythrocyte Sedimentation Rate Westergren 65(H) 0 - 20 MM/HR 08/23/2022 8:45 PM CDT [facility] Blood BLOOD SPECIMEN / Unknown Venipuncture / Unknown 08/23/2022 8:24 PM CDT 08/23/2022 8:32 PM CDT Neo Horne MD LAB - HEMATOLOGY ORD ERABLES [facility] [address] [place] [address], [facility] [phone] * VAS RIGHT VENOUS DUPLEX LE (08/23/2022 1:53 PM CDT) Anatomical Region Laterality Modality Lower Extremity Intravascular Ul trasound 08/23/2022 1:33 PM CDT Narrative Procedure Note Ja Khoury MD - 08/24/2022 Margoth Gustafson PA-C VASCULAR LAB ORDER [place] * [place] LIVER ELASTOGRAPHY (08/31/2020 9:47 PM CDT) Narrative Kendrick Duran MD - 08/31/2020 9:47 PM CDT Kendrick Duran MD ? 08/31/2020 ??9:48 PM Diagnosis: Cirrhosis RN verified patient has no implanted devices and NPO for prior 3 hours. Procedure explained and consent signed. Date of Exam: 08/26/2020 Liver Stiffness: (LSM, kPa) median: ??Unable to get valid readings IQR (interquartile range): ?? IQR/Median% (ideally < 30%): ?? CAP (controlled attenuation parameter): ?? Technical Difficulty: Patient in wheelchair. After 107 attempts, unable to get valid readings Ordering Provider: Jackelyn Licona MD Phone Fax Fibroscan interpretation: I have personally reviewed the Fibroscan report and associated tracings. The calculated Liver Stiffness Measurement (LSM, kPa) indicates that: The probability of advanced liver fibrosis is: not assessable using Fibroscan due to variability of tracings. The loss of ultrasound signal, (controlled attenuation parameter, CAP [dB/m]), indicates that the probability of hepatic steatosis is: not obtainable. Kendrick Duran MD The following criteria are used to indicate the probability of advanced (stage 3-4) fibrosis: < 7.0 kPa: low 7.0-8.9 kPa: low to moderate 9.0-14.9 kPa: moderate 15-20 kPa: high > 20 kPa: very high Liver stiffness > 20 kPa is also associated with a high probability of complications of portal hypertension including varices and ascites. Liver stiffness > 50 kPa is associated with a high risk of variceal bleeding. These interpretations are based on the following published data: Gwyn MADRIGAL, Gricelda M, Julianna M, et al. Accuracy of FibroScan controlled attenuation parameter and liver stiffness measurement in assessing steatosis and fibrosis in patients with nonalcoholic fatty liver disease. Gastroenterology 2019;156:9220-3363. Rico MS, Lina R, Van Jasen ML, et al. Vibration-controlled transient elastography to assess fibrosis and steatosis in patients with nonalcoholic fatty liver disease. Clin Gastroenterol Hepatol 2019;17:156-163. Note: 1. Fibroscan cannot reliably identify earlier stages of fibrosis (ie distinguish F0 from F1 and F2) and thus a histologic stage cannot be predicted from the Fibroscan reading. 2. Assessing the likelihood of advanced fibrosis in patients with indeterminate liver stiffness measurement (LSM) by Fibroscan (e.g., 8-15 kPa) can be improved by also calculating the FIB4 score (Davyduke et al. Hepatology Communications 2019;3:6732-9376) or NAFLD Fibrosis score (Lutz et al. Clinical Gastroenterology and Hepatology 2019;17:0353-1787. from routine clinical data. 3. Liver stiffness can be increased by factors other than fibrosis including passive congestion, infiltrative processes, active alcoholism, biliary obstruction and marked inflammation. The interpretation of the Fibroscan result provided above may not have taken such clinical factors into account. Disease etiology also influences Fibroscan cutoff values for fibrosis stages and the following cutoffs have been proposed (Flakita et al, Clin Gastro Hepatol 2015; 13:27-36): Cutoffs for Stage 3 and Stage 4 fibrosis respectively: Hepatitis B: >9 and >11.7 kPa Hepatitis C: >9.5 and >12.5 kPa HCV-HIV: >11 and >14 kPa Cholestatic liver diseases: >10 and >17.9 kPa NAFLD/RAYGOZA: >10 and >14 kPa CAP estimates of steatosis: normal <200 dB/m mild 200 to 250 dB/m moderate 250-290 dB/m substantial > 290 dB/m (Note that Fibroscan is not a quantitative measure of liver fat.) These criteria are estimates and may change as additional supporting data becomes available. [email or web address] Jackelyn Licona MD PROCEDURE/MINOR SURG ICAL ORDERABLES * (ABNORMAL) CBC W DIFF (EXTERNAL RESULT ENTRY) (08/20/2020) Pathologist [facility] WBC (EXTERNAL RESULT) 8.1 3.8 - 10.8 10^3/ul Hemoglobin (EXTERNAL RESULT) 14.2 13.2 - 17.1 g/dl Hematocrit (EXTERNAL RESULT) 43 38.5 - 50 % Platelets (EXTERNAL RESULT) 106(A) 140 - 400 10^3/ul Neutrophil Absolute (EXTERNAL RESULT) 6.0 1.5 - 7.8 10^3/ul Blood BLOOD SPECIMEN / Unknown 08/20/2020 Historical Provider LAB - HEMATOLOGY ORDERABLES * (ABNORMAL) COMP MET PANEL (EXTERNAL RESULT ENTRY) (08/20/2020) Glucose (EXTERNAL) 118(A) 65 - 99 mg/dL Sodium (EXTERNAL RESULT) 140 135 - 146 mmol/L Potassium (EXTERNAL RESULT) 3.7 3.5 - 5.3 mmol/L Chloride (EXTERNAL RESULT) 103 98 - 110 mmol/L CO2 (EXTERNAL) 27 20 - 32 mmol/L Calcium (EXTERNAL RESULT) 9.6 8.6 - 10.3 mg/dL Anion Gap (EXTERNAL RESULT) BUN (EXTERNAL RESULT) 27(A) 7 - 25 mg/dL Creatinine (EXTERNAL RESULT) 1.31(A) 0.70 - 1.18 mg/dl Alkaline Phosphatase (EXTERNAL RESULT) 113 35 - 144 U/L ALT (EXTERNAL RESULT) 19 9 - 46 U/L AST (EXTERNAL RESULT) 14 10 - 35 U/L Protein Total (EXTERNAL RESULT) 6.5 6.1 - 8.1 gm/dL Albumin (EXTERNAL RESULT) 3.7 3.6 - 5.1 gm/dL Bilirubin Total (EXTERNAL RESULT) 0.8 0.2 - 1.2 mg/dL eGFR MDRD (EXTERNAL RESULT) 54(A) >60 mL/min/1.7 3m2 eGFR (EXTERNAL) Blood BLOOD SPECIMEN / Unknown 08/20/2020 Historical Provider LAB - CHEMISTRY O RDERABLES * LIPID PROFILE (EXTERAL RESULT ENTRY) (08/20/2020) Cholesterol (EXTERNAL RESULT) 150 0 - 200 mg/dL Triglycerides (EXTERNAL RESULT) 73 0 - 150 mg/dL HDL (EXTERNAL RESULT) 45 >40 mg/dL LDL (EXTERNAL RESULT) 89 0 - 100 mg/dL VLDL (EXTERNAL RESULT) Chol HDL Ratio (External Result) 3.3 0 - 5.0 Blood BLOOD SPECIMEN / Unknown 08/20/2020 Historical Provider LAB - CHEMISTRY O RDERABLES * TSH (EXTERNAL RESULT ENTRY) (08/20/2020) TSH (EXTERNAL RESULT) 1.27 0.40 - 4.50 uIU/mL Blood BLOOD SPECIMEN / Unknown 08/20/2020 Historical Provider LAB - CHEMISTRY O RDERABLES * XR PELVIS 1 OR 2VW (08/05/2020 9:55 AM LEAD SYSTEMS DEVELOPER) Only the most recent of4 resultswithin the time period is included. 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 This report was electronically signed by SILAS NGUYỄN MD ??on 08/05/2020 10:07 AM . Narrative 08/05/2020 10:07 AM LEAD SYSTEMS DEVELOPER Exam: 1. XR PELVIS 1 view 2. XR HIP RIGHT 2VW History: ??M25.559: Arthralgia of hip, unspecified laterality Comparison: Outside pelvic and right hip radiographs dated 12/24/2019. Findings: Right hip: Total hip arthroplasty is again demonstrated. The prosthetic components are intact and there is no periprosthetic lucency. There is no acute fracture or dislocation. There are multiple foci of heterotopic ossification around the hip measuring up to 3.2 cm between the greater trochanter and superior acetabulum. Pelvis: Bilateral total hip arthroplasty is noted. There is no acute displaced pelvic fracture. The pubic symphysis and sacroiliac joints are intact. There is moderate lumbar spondylosis. Procedure Note Silas Nguyễn MD - 08/05/2020 Exam: 1. XR PELVIS 1 view 2. XR HIP RIGHT 2VW History: M25.559: Arthralgia of hip, unspecified laterality Comparison: Outside pelvic and right hip radiographs dated 12/24/2019. Findings: Right hip: Total hip arthroplasty is again demonstrated. The prosthetic components are intact and there is no periprosthetic lucency. There is no acute fracture or dislocation. There are multiple foci of heterotopic ossification around the hip measuring up to 3.2 cm between the greater trochanter and superior acetabulum. Pelvis: Bilateral total hip arthroplasty is noted. There is no acute displaced pelvic fracture. The pubic symphysis and sacroiliac joints are intact. There is moderate lumbar spondylosis. 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 This report was electronically signed by SILAS NGUYỄN MD on08/05/2020 10:07 AM . Larry Alexander MD DIAGNOSTIC IMAGING ORDERABLES * XR HIP RIGHT 2VW OR MORE (08/05/2020 9:55 AM LEAD SYSTEMS DEVELOPER) Only the most recent of5 resultswithin the time period is included. 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 This report was electronically signed by SILAS NGUYỄN MD ??on 08/05/2020 10:07 AM . Narrative 08/05/2020 10:07 AM LEAD SYSTEMS DEVELOPER Exam: 1. XR PELVIS 1 view 2. XR HIP RIGHT 2VW History: ??M25.559: Arthralgia of hip, unspecified laterality Comparison: Outside pelvic and right hip radiographs dated 12/24/2019. Findings: Right hip: Total hip arthroplasty is again demonstrated. The prosthetic components are intact and there is no periprosthetic lucency. There is no acute fracture or dislocation. There are multiple foci of heterotopic ossification around the hip measuring up to 3.2 cm between the greater trochanter and superior acetabulum. Pelvis: Bilateral total hip arthroplasty is noted. There is no acute displaced pelvic fracture. The pubic symphysis and sacroiliac joints are intact. There is moderate lumbar spondylosis. Procedure Note Silas Nguyễn MD - 08/05/2020 Exam: 1. XR PELVIS 1 view 2. XR HIP RIGHT 2VW History: M25.559: Arthralgia of hip, unspecified laterality Comparison: Outside pelvic and right hip radiographs dated 12/24/2019. Findings: Right hip: Total hip arthroplasty is again demonstrated. The prosthetic components are intact and there is no periprosthetic lucency. There is no acute fracture or dislocation. There are multiple foci of heterotopic ossification around the hip measuring up to 3.2 cm between the greater trochanter and superior acetabulum. Pelvis: Bilateral total hip arthroplasty is noted. There is no acute displaced pelvic fracture. The pubic symphysis and sacroiliac joints are intact. There is moderate lumbar spondylosis. 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 This report was electronically signed by SILAS NGUYỄN MD on08/05/2020 10:07 AM . Larry Alexander MD DIAGNOSTIC IMAGING ORDERABLES * EGD (07/03/2020 10:03 AM LEAD SYSTEMS DEVELOPER) Report Endoscopy POC Endoscopy Department Report _ Patient Name: José Miguel Kesy ?Procedure Date: 07/03/2020 10:03 AM ? Date of : 1950 Classification: Outpatient ?Gender: Male Ethnicity: Not or ? Race: White _ Providers: ?Jackelyn Trejo MD: ? Procedure: ?Upper GI endoscopy Indications: ?Cirrhosis rule out esophageal varices Medications: ?Monitored Anesthesia Care Description of Procedure: After obtaining informed consent, the endoscope was ?passed under direct vision. Throughout the ?procedure, the patient's blood pressure, pulse, and ?oxygen saturations were monitored continuously. The ?[id number]-[id number] was introduced through the mouth, and ?advanced to the second part of duodenum. The upper ?GI endoscopy was accomplished without difficulty. ?The patient tolerated the procedure well. ? Findings: ? Esophagogastric landmarks were identified: the Z-line was found at 40 ? cm, the upper extent of the gastric folds was found at 40 cm and the ? site of hiatal narrowing was found at 40 cm from the incisors. ? Few 2 to 3 mm patches of erythema with white plaques were found in the ? middle third of the esophagus. This was biopsied with a cold forceps for ? histology. The pathology specimen was placed into Bottle A. ? The exam of the esophagus was otherwise normal. No esophageal varices ? were seen. ? Striped mildly erythematous mucosa without bleeding was found in the ? gastric antrum. ? On retroflexion, no gastric varices were seen. ? The examined duodenum was normal. ? Estimated Blood Loss: ? Estimated blood loss was minimal. Complications: ?No immediate complications. Impression: ? - Esophagogastric landmarks identified. ?- Multiple plaques in the middle third of the ?esophagus. Biopsied. ?- Erythematous mucosa in the antrum. ?- Normal examined duodenum. ?- No esophageal or gastric varices were seen. Recommendation: ? - Patient has a contact number available for ?emergencies. The signs and symptoms of potential ?delayed complications were discussed with the ?patient. Return to normal activities tomorrow. ?Written discharge instructions were provided to the ?patient. ?- Resume previous diet. ?- Continue present medications. ?- Await pathology results. ?- Repeat upper endoscopy in 2-3 years for ?surveillance (sooner if patient has decompensation ?of liver disease). ?- Return to Liver clinic as previously scheduled. ? Attending Participation: ??I personally performed the entire procedure. ? Procedure Code(s): ? --- Professional --- ? 62454, Esophagogastroduod enoscopy, flexible, transoral; with biopsy, ? single or multiple Diagnosis Code(s): ?--- Professional --- ?K22.8, Other specified diseases of esophagus ?K31.89, Other diseases of stomach and duodenum ?K74.60, Unspecified cirrhosis of liver CPT copyright 2019 [employer]. All rights reserved. The codes documented in this report are preliminary and upon call center assistant review may be revised to meet current compliance requirements. Jackelyn Licona, 07/03/2020 10:32:16 AM Note Initiated On: 07/03/2020 10:03 AM Number of Addenda: 0 ? [facility] ? [address] [place] [address] [facility] 07/03/2020 10:0 3 AM LEAD SYSTEMS DEVELOPER Jackelyn Licona MD GI PROCEDURE ORDERAB LES [facility] [employer] * XR THORACIC SPINE 2VW (02/07/2020 1:20 PM CDT) Only the most recent of3 resultswithin the time period is included. Anatomical Region Laterality Modality Spine Radiographic Shama ging 02/07/2020 1:32 PM CDT Impressions 02/07/2020 1:38 PM CDT Impression: 1. Unchanged interbody fusion of L1-L2 with mild to moderate multilevel thoracal lumbar degenerative disc disease, greatest and moderate to severe at L4-L5. 2. Unchanged mild anterior wedging of T12. This report was electronically signed by EVELIA HDEZ ??on 02/07/2020 1:38 PM . Narrative 02/07/2020 1:38 PM CDT Examination: XR THORACIC SPINE 2VW, XR LUMBAR SPINE 2 OR 3VW History:Back pain Findings: Comparison to 01/03/2020. CT dated 12/24/2019 was reviewed. There is interbody fusion of L1-L2 with interbody fusion device without change. There is grade 1 anterolisthesis of L4 on L5. There is also hyperkyphosis of the thoracic spine. There is unchanged mild anterior wedging of T12. There is multilevel mild to moderate degenerative disc disease of the thoracolumbar spine, greatest and moderate to severe at L4-L5. There is multilevel lower lumbar facet osteoarthropathy. Bilateral hip arthroplasties are not fully visualized. The aorta is atherosclerotic. Procedure Note Evelia Hdez MD - 02/07/2020 Examination: XR THORACIC SPINE 2VW, XR LUMBAR SPINE 2 OR 3VW History:Back pain Findings: Comparison to 01/03/2020. CT dated 12/24/2019 was reviewed. There is interbody fusion of L1-L2 with interbody fusion device without change. There is grade 1 anterolisthesis of L4 on L5. There is also hyperkyphosis of the thoracic spine. There is unchanged mild anterior wedging of T12. There is multilevel mild to moderate degenerative disc disease of the thoracolumbar spine, greatest and moderate to severe at L4-L5. There is multilevel lower lumbar facet osteoarthropathy. Bilateral hip arthroplasties are not fully visualized. The aorta is atherosclerotic. Impression: 1. Unchanged interbody fusion of L1-L2 with mild to moderate multilevel thoracal lumbar degenerative disc disease, greatest and moderate tosevere at L4-L5. 2. Unchanged mild anterior wedging of T12. This report was electronically signed by EVELIA HDEZ on 02/07/2020 1:38 PM. Ronald Murray MD DIAGNOSTIC IMAGING O RDERABLES * XR LUMBAR SPINE 2 OR 3VW (02/07/2020 1:19 PM CDT) Only the most recent of3 resultswithin the time period is included. Anatomical Region Laterality Modality Spine Radiographic Shama ging 02/07/2020 1:32 PM CDT Impressions 02/07/2020 1:38 PM CDT Impression: 1. Unchanged interbody fusion of L1-L2 with mild to moderate multilevel thoracal lumbar degenerative disc disease, greatest and moderate to severe at L4-L5. 2. Unchanged mild anterior wedging of T12. This report was electronically signed by EVELIA HDEZ ??on 02/07/2020 1:38 PM . Narrative 02/07/2020 1:38 PM CDT Examination: XR THORACIC SPINE 2VW, XR LUMBAR SPINE 2 OR 3VW History:Back pain Findings: Comparison to 01/03/2020. CT dated 12/24/2019 was reviewed. There is interbody fusion of L1-L2 with interbody fusion device without change. There is grade 1 anterolisthesis of L4 on L5. There is also hyperkyphosis of the thoracic spine. There is unchanged mild anterior wedging of T12. There is multilevel mild to moderate degenerative disc disease of the thoracolumbar spine, greatest and moderate to severe at L4-L5. There is multilevel lower lumbar facet osteoarthropathy. Bilateral hip arthroplasties are not fully visualized. The aorta is atherosclerotic. Procedure Note Evelia Hdez MD - 02/07/2020 Examination: XR THORACIC SPINE 2VW, XR LUMBAR SPINE 2 OR 3VW History:Back pain Findings: Comparison to 01/03/2020. CT dated 12/24/2019 was reviewed. There is interbody fusion of L1-L2 with interbody fusion device without change. There is grade 1 anterolisthesis of L4 on L5. There is also hyperkyphosis of the thoracic spine. There is unchanged mild anterior wedging of T12. There is multilevel mild to moderate degenerative disc disease of the thoracolumbar spine, greatest and moderate to severe at L4-L5. There is multilevel lower lumbar facet osteoarthropathy. Bilateral hip arthroplasties are not fully visualized. The aorta is atherosclerotic. Impression: 1. Unchanged interbody fusion of L1-L2 with mild to moderate multilevel thoracal lumbar degenerative disc disease, greatest and moderate tosevere at L4-L5. 2. Unchanged mild anterior wedging of T12. This report was electronically signed by EVELIA HDEZ on 02/07/2020 1:38 PM. Ronald Murray MD DIAGNOSTIC IMAGING O RDERABLES * (ABNORMAL) DIFFERENTIAL MANUAL REFLXED III (08/20/2019 3:27 PM CDT) Neutrophil Absolute 8383(H) 1500 - 7800 cells/uL [facility] Metamyelocytes Absolute 202(H) 0 cells/uL [facility] Lymphocytes Absolute 707(L) 850 - 3900 cells/uL [facility] Absolute Monocytes 707 200 - 950 cells/uL [facility] Eosinophils Absolute 101 15 - 500 cells/uL [facility] Basophils Absolute 0 0 - 200 cells/uL [facility] Granulocytes % 83.0 % [facility] Metamyelocytes 2.0(H) % [facility] Lymphocytes % 7.0 % [facility] Monocytes % 7.0 % [facility] Eosinophils % 1.0 % [facility] Basophils % 0 % [facility] See Note See Below [facility] Comment: Although an automated CBC was ordered, our instrumentation detected an abnormality on your patient's specimen requiring us to perform a manual review. Test Performed at: [facility] [address] [place], [place] ??[address] LEROY LOPEZ DO,MPH 08/20/2019 3:27 PM CDT 08/20/2019 3:28 PM CDT Jackelyn Licona MD LAB - HEMATOLOGY ORD ERABLES Performing Organization Address City/[facility]/ZIP Co de Phone Number [facility] [address] [place] [address] * CARDIAC RHYTHM STRIP ORDER (05/07/2019 6:01 PM LEAD SYSTEMS DEVELOPER) Only the most recent of2 resultswithin the time period is included. Narrative 05/07/2019 6:01 PM LEAD SYSTEMS DEVELOPER Ordered by an unspecified provider. Scanned Document CARDIAC SERVICES ORD ERABLES * PLATELET COUNT AUTO (05/05/2019 2:15 AM LEAD SYSTEMS DEVELOPER) Pathologist [facility] Platelet Count 157 153 - 416 x10E9/L 05/05/2019 3:03 AM LEAD SYSTEMS DEVELOPER [facility] Blood BLOOD SPECIMEN / Unknown Lab Venipuncture / Unknown 05/05/2019 2:15 AM LEAD SYSTEMS DEVELOPER 05/05/2019 2:38 AM LEAD SYSTEMS DEVELOPER Michelle Pratt MD LAB - HEMATOLOGY OR DERABLES Performing Organization Address [facility] Co de Phone Number [facility] [address] [place], [place] [phone] * (ABNORMAL) VANCOMYCIN LEVEL TROUGH (05/03/2019 1:21 PM LEAD SYSTEMS DEVELOPER) Only the most recent of8 resultswithin the time period is included. Pathologist [facility] Vancomycin Trough 22.9(H) 10.0 - 20.0 ug/mL 05/03/2019 2:04 PM LEAD SYSTEMS DEVELOPER [facility] Blood BLOOD SPECIMEN / Unknown Lab Venipuncture / Unknown 05/03/2019 1:21 PM LEAD SYSTEMS DEVELOPER 05/03/2019 1:40 PM LEAD SYSTEMS DEVELOPER Raysa Nevarez MD LAB - CHEMISTRY ROYCE KLINE Performing Organization Address [facility] Co de Phone Number [facility] [address] [place] [address] * CULTURE FLUID+GRAM STAIN (05/02/2019 2:24 PM LEAD SYSTEMS DEVELOPER) Only the most recent of2 resultswithin the time period is included. Pathologist [facility] Culture No growth UMESH 05/09/2019 6:44 AM LEAD SYSTEMS DEVELOPER [facility] Gram Stain Rare Polymorphonuclear cells 05/09/2019 6:[address] [facility] Gram Stain No organisms seen 019 6:[address] [facility] Fluid BODY FLUID SPECIMEN / Unknown Collection / Unknown 05/02/2019 2:24 PM LEAD SYSTEMS DEVELOPER 05/02/2019 3:22 PM LEAD SYSTEMS DEVELOPER Comment:Pre-op diagnosis: Diagnosis unknown [R69] Narrative [facility] - 05/09/2019 6:44 AM LEAD SYSTEMS DEVELOPER Surgical Description: Post Irrigation Right Hip Fluid Larry Alexander MD LAB - MICROBIOLOGY ORDERABLES Performing Organization Address [facility] de Phone Number [facility] [address] [place] [address], [facility] [phone] * CULTURE ANAEROBE (05/02/2019 2:24 PM LEAD SYSTEMS DEVELOPER) Only the most recent of10 resultswithin the time period is included. Culture No anaerobic organisms isolated UMESH 05/07/2019 12:[address] [facility] Fluid BODY FLUID SPECIMEN / Unknown Collection / Unknown 05/02/2019 2:24 PM LEAD SYSTEMS DEVELOPER 05/02/2019 3:22 PM LEAD SYSTEMS DEVELOPER Comment:Pre-op diagnosis: Diagnosis unknown [R69] Narrative [facility] - 05/07/2019 12:40 PM LEAD SYSTEMS DEVELOPER Surgical Description: Post Irrigation Right Hip Fluid Larry Alexander MD LAB - MICROBIOLOGY ORDERABLES Performing Organization Address [facility] de Phone Number [facility] [address] [place] [address], [facility] [phone] * IV PLACEMENT PERFORMABLE (05/02/2019 2:15 PM LEAD SYSTEMS DEVELOPER) Narrative Puneet Kohler APRN-CRNA - 05/02/2019 2:15 PM LEAD SYSTEMS DEVELOPER Puneet Kohler APRN-CRNA ? 05/02/2019 ??2:16 PM Peripheral IV Line Placement: Patient Location: ??OR Procedure: IV start (02482). Procedure Section: ?? Skin Prep: Chloraprep. Orientation: right Location: arm Brand Name: CESPEDES. Catheter Gauge: 18 Number of Attempts: 1. Procedure Tolerance: performed while patient under general anesthesia. Procedure Start Time: 05/02/2019 1:48 PM. Procedure End Time: 05/02/2019 1:51 PM. Procedure Total Time: 3 ??minutes. Staff Section ?? Anesthesia Provider: Puneet Kohler APRN-GUILLERMO, Performed the procedure Andres Anton MD GENERAL ANESTHESIA O RDERABLES * PREPARE (CROSSMATCH) RBC UNIT(S), 2 Units (05/02/2019 2:15 PM LEAD SYSTEMS DEVELOPER) Product Code [id number] [facility] Unit Donor # [id number] [facility] ABO Donor Type A [facility] Rh Type Unit POS [facility] Unit Status Ret'd [facility] ABO Rh Type Unit APOS [facility] Donor Unit Expiration Date [facility] Blood Type Barcode 6200 [facility] Product Code [id number] [facility] Unit Donor # [id number] [facility] ABO Donor Type A [facility] Rh Type Unit POS [facility] Unit Status Ret'd [facility] ABO Rh Type Unit APOS [facility] Donor Unit Expiration Date [facility] Blood Type Barcode 6200 [facility] Blood Bank BLOOD SPECIMEN / Unknown 05/02/2019 2:15 PM LEAD SYSTEMS DEVELOPER Larry Alexander MD LAB - BLOOD BANK OR DERABLES [facility] [address] [place] [address] * TYPE + SCREEN PANEL (05/02/2019 2:07 PM LEAD SYSTEMS DEVELOPER) Only the most recent of10 resultswithin the time period is included. ABO A 05/02/2019 2:34 PM LEAD SYSTEMS DEVELOPER [facility] Rh Type Positive 05/02/2019 2:34 PM LEAD SYSTEMS DEVELOPER [facility] Comment:History checked. Antibody Screen Negative 05/02/2019 2:34 PM LEAD SYSTEMS DEVELOPER [facility] Blood Bank BLOOD SPECIMEN / Unknown Venipuncture / Unknown 05/02/2019 2:07 PM LEAD SYSTEMS DEVELOPER 05/02/2019 2:07 PM LEAD SYSTEMS DEVELOPER Larry Alexander MD LAB - BLOOD BANK OR DERABLES [facility] [address] [place] [address], [facility] [phone] * ETT LINE PERFORMABLE (05/02/2019 2:06 PM LEAD SYSTEMS DEVELOPER) Narrative Puneet Kohler APRN-CRNA - 05/02/2019 2:06 PM LEAD SYSTEMS DEVELOPER Puneet Kohler APRN-CRNA ? 05/02/2019 ??2:07 PM Endotracheal Tube Placement: ? Patient Location: OR. Intubation Event Date/Time: ??05/02/2019 1:21 PM Procedure: intubation (91681). Procedure Section: ?? Sedation: under general anesthesia. Indications for Airway Management: ??anesthesia Induction: standard IV Patient Position: ??sniffing Mask Ventilation: easy. Blade Type: Juan Blade Size: 4 Laryngoscopy View: grade 1 (full cords) Intubation Adjuncts: cricoid pressure and stylet Tube: endotracheal tube Placement: oral Tube type: cuff - inflated Tube Size (MM): 8 Depth of Insertion (CM): 22 Measured From: lips Cuff volume (mL): ??5 Cuff Inflated With: air Number of Attempts: 1. Placement Verified By: direct visualization, bilateral breath sounds, chest auscultation and CO2 monitor Tube secured with: ??adhesive tape. Difficult Airway? ??No. Procedure Start Time: 05/02/2019 1:21 PM. Procedure End Time: 05/02/2019 1:21 PM. Procedure Total Time: 0 ??minutes. Staff Section ?? Anesthesia Provider: Puneet Kohler APRN-CRNA, Performed the procedure Andres Anton MD GENERAL ANESTHESIA O RDERABLES * ECHOCARDIOGRAM 2D WITH DOPPLER (05/01/2019 6:07 PM LEAD SYSTEMS DEVELOPER) 05/01/2019 6:07 PM LEAD SYSTEMS DEVELOPER Narrative [facility] - 05/02/2019 9:34 AM LEAD SYSTEMS DEVELOPER [facility] [address] [place] [address] Transthoracic Echocardiogram 2D, M-mode, Doppler, and Color Doppler Patient: JOSÉ MIGUEL KEYS MR number: [id number] Height: 71 in Weight: 219.6 lb BSA: 2.2 m?? Study date: 01-May-2019 : 1950 Age: 68 years Gender: Male Race: Allergies: PENICILLINS, LEVOFLOXACIN, SCOPOLAMINE Dental Surgery Doctor: ??Gómez Finch Referring Physician: ??Kev Ordonez MD Reading Physician: ??Constantino Sims MD Summary: - ??Clinical question: - ??A-FIB - ??History: - ??DVT,BACTEREMIA,HYUPOXEMIA,ARF,AKF,SEPSIS,EDEMA,PAF,ANEMIA - ??Left ventricle: - ??Systolic function was normal. Ejection fraction was estimated to be 55 %. - ??There were no regional wall motion abnormalities. - ??Wall thickness was mildly increased. - ??Aortic valve: - ??There was mild regurgitation. - ??Left atrium: - ??The atrium was mildly to moderately dilated. - ??Pulmonary arteries: - ??Systolic pressure was mildly to moderately increased. Estimated peak pressure was 54 mmHg. - ??Tricuspid valve: - ??There was mild regurgitation. - ??Inferior vena cava, hepatic veins: - ??Respirophasic changes were blunted (less than 50% variation). Summary Measurements CW measurements: Aortic Valve: ?? AR Vmax was 5 m/s. Mitral Valve: ?? MR Vmax was 4.4 m/s. Indications: A-FIB History: Prior history: DVT,BACTEREMIA,HYUPOXEMIA,ARF,AKF,SEPSIS,EDEMA,PAF,ANEMIA Procedure: The study was performed in the Bedside. This was a routine study in room 281-1. The transthoracic approach was used. The study included complete 2D imaging, M-mode, complete spectral Doppler, and color Doppler. Systolic blood pressure was 143 mmHg. Diastolic blood pressure was 79 mmHg. Image quality was adequate. Left ventricle: Size was normal. Systolic function was normal. Ejection fraction was estimated to be 55 %. There were no regional wall motion abnormalities. Wall thickness was mildly increased. Doppler: The study was not technically sufficient to allow evaluation of LV diastolic function. Aortic valve: The valve was trileaflet. Leaflets exhibited normal thickness and normal cuspal separation. Doppler: There was no stenosis. There was mild regurgitation. Aorta: The root exhibited normal size. Mitral valve: Valve structure was normal. There was normal leaflet separation. Doppler: The transmitral velocity was within the normal range. There was no evidence for stenosis. There was trivial regurgitation. Left atrium: The atrium was mildly to moderately dilated. Right ventricle: The size was at the upper limits of normal. Systolic function was low normal. Wall thickness was normal. Pulmonic valve: Leaflets exhibited normal thickness, no calcification, and normal cuspal separation. Doppler: There was trivial regurgitation. Pulmonary artery: The size was normal. Doppler: Systolic pressure was mildly to moderately increased. Estimated peak pressure was 54 mmHg. Tricuspid valve: The valve structure was normal. There was normal leaflet separation. Doppler: The transtricuspid velocity was within the normal range. There was no evidence for tricuspid stenosis. There was mild regurgitation. Right atrium: Size was normal. Systemic veins: IVC: The inferior vena cava was normal in size. Respirophasic changes were blunted (less than 50% variation). Pericardium: The pericardium was normal in appearance. Measurement tables Other echo measurements (Reference normals) Estimated CVP ?? 8 mmHg ?? (--) System measurement tables 2D Ao Diam: 3.3 cm LVOT Diam: 2.5 cm LA Diam: 4.2 cm LAEDV Index (A-L): 40.2 ml/m2 LAEDV(A-L): 88.4 ml EF Biplane: 53.7 % IVSd: 1.2 cm LVIDd: 4 cm LVIDs: 2.7 cm LVPWd: 1.3 cm %FS: 31.6 % Ao Arch Diam: 3.7 cm Ao abd AP: 2.5 cm Ao asc: 3 cm EF(Cube): 68 % EF(Teich): 60.1 % IVC: 18 mm LAAd A2C: 25 cm2 LAAd A4C: 25.7 cm2 LVEF MOD A2C: 58.6 % LVEF MOD A4C: 49.8 % RV Major: 6.1 cm RV Minor: 4.1 cm RVIDd: 4.3 cm CW AR PHT: 504.5 ms AR Vmax: 5 m/s AV VTI: 22.4 cm AV Vmax: 1.2 m/s AV Vmean: 0.8 m/s AV maxP mmHg AV meanP.2 mmHg MR Vmax: 4.4 m/s MR maxP.3 mmHg TR Vmax: 3.2 m/s RAP: 5 mmHg MM Ao Diam: 4 cm LA Diam: 3.9 cm IVSd: 1 cm IVSs: 1 cm LVIDd: 5.5 cm LVIDs: 3.9 cm LVPWd: 1 cm LVPWs: 1.1 cm EPSS: 1.1 cm TAPSE: 1.5 cm %FS: 30.2 % AV Cusp: 1.8 cm EDV(Teich): 149.6 ml EF(Teich): 56.9 % ESV(Teich): 64.4 ml PW ASHOK (VTI): 3.2 cm2 ASHOK Vmax: 3.3 cm2 LVOT VTI: 15 cm LVOT Vmax: 0.8 m/s LVOT Vmean: 0.6 m/s LVOT maxP.8 mmHg LVOT meanP.5 mmHg MV E/A Ratio: 2.9 MV PHT: 43.1 ms MV VTI: 21.4 cm MV Vmax: 1.2 m/s MV Vmean: 0.5 m/s MV maxP.3 mmHg MV meanP.5 mmHg MVA By PHT: 5.1 cm2 RVSP: 46.6 mmHg E' Lat: 0.1 m/s E' Sept: 0.1 m/s E/E' Lat: 8.6 E/E' Sept: 11.6 PAEDP: 17.2 mmHg PRend P.2 mmHg PRend Vmax: 1.7 m/s Prepared and signed by Constantino Sims MD Signed 02-May-2019 09:37:01 Procedure Note Constantino Sims MD - 05/02/[address] [address] Transthoracic Echocardiogram 2D, M-mode, Doppler, and Color Doppler Patient: JOSÉ MIGUEL KEYS MR number: [id number] Height: 71 in Weight: 219.6 lb BSA: 2.2 m?? Study date: 01-May-2019 : 1950 Age: 68 years Gender: Male Race: Allergies: PENICILLINS, LEVOFLOXACIN, SCOPOLAMINE Dental Surgery Doctor: Gómez Finch Referring Physician: Kev Ordonez MD Reading Physician: Constantino Sims MD Summary: - Clinical question: - A-FIB - History: - DVT,BACTEREMIA,HYUPOXEMIA,ARF,AKF,SEPSIS,EDEMA,PAF,ANEMIA - Left ventricle: - Systolic function was normal. Ejection fraction was estimated to be 55 %. - There were no regional wall motion abnormalities. - Wall thickness was mildly increased. - Aortic valve: - There was mild regurgitation. - Left atrium: - The atrium was mildly to moderately dilated. - Pulmonary arteries: - Systolic pressure was mildly to moderately increased. Estimated peak pressure was 54 mmHg. - Tricuspid valve: - There was mild regurgitation. - Inferior vena cava, hepatic veins: - Respirophasic changes were blunted (less than 50% variation). Summary Measurements CW measurements: Aortic Valve: AR Vmax was 5 m/s. Mitral Valve: MR Vmax was 4.4 m/s. Indications: A-FIB History: Prior history: DVT,BACTEREMIA,HYUPOXEMIA,ARF,AKF,SEPSIS,EDEMA,PAF,ANEMIA Procedure: The study was performed in the Bedside. This was a routine study in room 281-1. The transthoracic approach was used. The study included complete 2D imaging, M-mode, complete spectral Doppler, and color Doppler. Systolic blood pressure was 143 mmHg. Diastolic blood pressure was 79 mmHg. Image quality was adequate. Left ventricle: Size was normal. Systolic function was normal. Ejection fraction was estimated to be 55 %. There were no regional wall motion abnormalities. Wall thickness was mildly increased. Doppler: The study was not technically sufficient to allow evaluation of LV diastolic function. Aortic valve: The valve was trileaflet. Leaflets exhibited normal thickness and normal cuspal separation. Doppler: There was no stenosis. There was mild regurgitation. Aorta: The root exhibited normal size. Mitral valve: Valve structure was normal. There was normal leaflet separation. Doppler: The transmitral velocity was within the normal range. There was no evidence for stenosis. There was trivial regurgitation. Left atrium: The atrium was mildly to moderately dilated. Right ventricle: The size was at the upper limits of normal. Systolic function was low normal. Wall thickness was normal. Pulmonic valve: Leaflets exhibited normal thickness, no calcification, and normal cuspal separation. Doppler: There was trivial regurgitation. Pulmonary artery: The size was normal. Doppler: Systolic pressure was mildly to moderately increased. Estimated peak pressure was 54 mmHg. Tricuspid valve: The valve structure was normal. There was normal leaflet separation. Doppler: The transtricuspid velocity was within the normal range. There was no evidence for tricuspid stenosis. There was mild regurgitation. Right atrium: Size was normal. Systemic veins: IVC: The inferior vena cava was normal in size. Respirophasic changes were blunted (less than 50% variation). Pericardium: The pericardium was normal in appearance. Measurement tables Other echo measurements (Reference normals) Estimated CVP 8 mmHg (--) System measurement tables 2D Ao Diam: 3.3 cm LVOT Diam: 2.5 cm LA Diam: 4.2 cm LAEDV Index (A-L): 40.2 ml/m2 LAEDV(A-L): 88.4 ml EF Biplane: 53.7 % IVSd: 1.2 cm LVIDd: 4 cm LVIDs: 2.7 cm LVPWd: 1.3 cm %FS: 31.6 % Ao Arch Diam: 3.7 cm Ao abd AP: 2.5 cm Ao asc: 3 cm EF(Cube): 68 % EF(Teich): 60.1 % IVC: 18 mm LAAd A2C: 25 cm2 LAAd A4C: 25.7 cm2 LVEF MOD A2C: 58.6 % LVEF MOD A4C: 49.8 % RV Major: 6.1 cm RV Minor: 4.1 cm RVIDd: 4.3 cm CW AR PHT: 504.5 ms AR Vmax: 5 m/s AV VTI: 22.4 cm AV Vmax: 1.2 m/s AV Vmean: 0.8 m/s AV maxP mmHg AV meanP.2 mmHg MR Vmax: 4.4 m/s MR maxP.3 mmHg TR Vmax: 3.2 m/s RAP: 5 mmHg MM Ao Diam: 4 cm LA Diam: 3.9 cm IVSd: 1 cm IVSs: 1 cm LVIDd: 5.5 cm LVIDs: 3.9 cm LVPWd: 1 cm LVPWs: 1.1 cm EPSS: 1.1 cm TAPSE: 1.5 cm %FS: 30.2 % AV Cusp: 1.8 cm EDV(Teich): 149.6 ml EF(Teich): 56.9 % ESV(Teich): 64.4 ml PW ASHOK (VTI): 3.2 cm2 ASHOK Vmax: 3.3 cm2 LVOT VTI: 15 cm LVOT Vmax: 0.8 m/s LVOT Vmean: 0.6 m/s LVOT maxP.8 mmHg LVOT meanP.5 mmHg MV E/A Ratio: 2.9 MV PHT: 43.1 ms MV VTI: 21.4 cm MV Vmax: 1.2 m/s MV Vmean: 0.5 m/s MV maxP.3 mmHg MV meanP.5 mmHg MVA By PHT: 5.1 cm2 RVSP: 46.6 mmHg E' Lat: 0.1 m/s E' Sept: 0.1 m/s E/E' Lat: 8.6 E/E' Sept: 11.6 PAEDP: 17.2 mmHg PRend P.2 mmHg PRend Vmax: 1.7 m/s Prepared and signed by Constantino Sims MD Signed 02-May-2019 09:37:01 Kev Ordonez MD ECHO ORDERABLES [facility] [address] [place] [address] * EKG 12-LEAD (05/01/2019 3:54 PM LEAD SYSTEMS DEVELOPER) Only the most recent of11 resultswithin the time period is included. Ventricular Rate 82 BPM [facility] MUSE Atrial Rate 312 BPM [facility] MUSE QRS Duration ms 90 ms [facility] Q-T Interval ms 380 ms [facility] MUSE QTC Calculation (Bezet) 443 ms [facility] MUSE Calculated R [place] -9 degrees [facility] MUSE Calculated T [place] 42 degrees [facility] MUSE Interpretation EKG ATRIAL FIBRILLATION WITH PREMATURE VENTRICULAR OR ABERRANTLY CONDUCTED COMPLEXES ABNORMAL ECG Confirmed by MD Jane, Zhang ([id number]) on 05/02/2019 8:32:37 AM [facility] MUSE 05/01/2019 3:54 PM LEAD SYSTEMS DEVELOPER 05/02/2019 8:32 AM LEAD SYSTEMS DEVELOPER Kev Ordonez MD ECG ORDERABLES Performing Organization Address [facility]/ZIP Co de Phone Number [facility] MUSE * CULTURE ABSCESS+GRAM STAIN (04/29/2019 9:41 PM LEAD SYSTEMS DEVELOPER) Culture No growth UMESH 05/03/2019 8:32 AM LEAD SYSTEMS DEVELOPER [facility] Gram Stain Rare Polymorphonuclear cells 05/03/2019 8:32 AM LEAD SYSTEMS DEVELOPER [facility] Gram Stain No organisms seen 019 8:32 AM LEAD SYSTEMS DEVELOPER [facility] Microbiology ENTIRE HIP REGION / Unknown Collection / Unknown 04/29/2019 9:41 PM LEAD SYSTEMS DEVELOPER 04/29/2019 11:20 PM LEAD SYSTEMS DEVELOPER Armida Gomez MD LAB - MICROBIOLOGY O RDSP Performing Organization Address [facility] Co de Phone Number [facility] [address] [place] [address], [facility] [phone] * (ABNORMAL) CULTURE VRE (04/29/2019 9:41 PM LEAD SYSTEMS DEVELOPER) Culture Growth of Enterococcus species vancomycin-resis tant (VRE)(A) UMESH 05/01/2019 6:[address] [facility] Microbiology ENTIRE RECTUM / Unknown Collection / Unknown 04/29/2019 9:41 PM LEAD SYSTEMS DEVELOPER 04/29/2019 11:20 PM LEAD SYSTEMS DEVELOPER Narrative [facility] - 05/01/2019 6:09 AM LEAD SYSTEMS DEVELOPER For vancomycin-resistant enterococci (VRE), contact precautions are required. For any questions, call Infection Prevention. Yasmany Oh MD LAB - MICROBIOLOGY O RIO Performing Organization Address City/[facility]/ZIP Co de Phone Number [facility] [address] [place] [address], [facility] [phone] * CULTURE MRSA (04/29/2019 9:41 PM LEAD SYSTEMS DEVELOPER) Only the most recent of2 resultswithin the time period is included. Culture Negative for methicillin-resist ant Staphylococcus aureus (MRSA) UMESH 05/01/2019 5:24 AM LEAD SYSTEMS DEVELOPER [facility] Microbiology ENTIRE RECTUM / Unknown Collection / Unknown 04/29/2019 9:41 PM LEAD SYSTEMS DEVELOPER 04/29/2019 11:20 PM LEAD SYSTEMS DEVELOPER Yasmany Oh MD LAB - MICROBIOLOGY O RDERABLES [facility] [address] [place], [place] [address], [facility] [phone] * XR CHEST FOR PICC PLMT (Place order AFTER PICC line is inserted) (02/13/2019 3:03 PM CDT) Anatomical Region Laterality Modality Radiographic Shama ging 02/13/2019 3:08 PM CDT Impressions 02/13/2019 3:08 PM CDT PICC line in satisfactory position. Reading Radiologist: Ash Bill MD on 02/13/2019 at 3:08 PM Narrative 02/13/2019 3:08 PM CDT Chest x-ray single view. HISTORY: PICC line placement. Single view of the chest shows a right-sided PICC line tip projected in the superior vena cava. Heart size is borderline. Left lung base is hazy. Procedure Note Ash Bill MD - 02/13/2019 Chest x-ray single view. HISTORY: PICC line placement. Single view of the chest shows a right-sided PICC line tip projected in the superior vena cava. Heart size is borderline. Left lung base is hazy. IMPRESSION PICC line in satisfactory position. Reading Radiologist: Ash Bill MD on 02/13/2019 at 3:08 PM Poncho Cisneros MD DIAGNOSTIC IMAGING O RIO * ENDOTRACHEAL TUBE NOTE (02/08/2019 11:44 AM CDT) Narrative Zbigniew Mayen APRN-CRNA - 02/08/2019 11:44 AM CDT Zbigniew Mayen APRN-CRNA ? 02/08/2019 11:45 AM Endotracheal Tube Placement: ? Patient Location: OR. Intubation Event Date/Time: ??02/08/2019 11:21 AM Procedure: intubation ([id number]). Procedure Section: ?? Sedation: under general anesthesia. Indications for Airway Management: ??anesthesia Induction: modified rapid sequence Patient Position: ??sniffing Mask Ventilation: easy. Blade Type: Juan Blade Size: 3 Laryngoscopy View: grade 1 (full cords) Intubation Adjuncts: stylet Device: endotracheal tube Placement: oral Tube type: endotracheal tube Tube Size (MM): 8 Depth of Insertion (CM): 22 Measured From: lips Cuff volume (mL): ??8 Cuff Inflated With: air Number of Attempts: 1. Placement Verified By: direct visualization, bilateral breath sounds and CO2 monitor CXR Findings: ETT in proper place. Tube secured with: ??adhesive tape. Difficult Airway? ??No. Procedure Start Time: 02/08/2019 11:21 AM. Staff Section ?? Anesthesia Provider: Zbigniew Mayen APRN-NATURAL HISTORY COLLECTIONS CURATOR, Performed the procedure Provider #1: Jeffrey Angelo MD. Jeffrey Angelo MD GENERAL ANESTHESIA ORDERABLES * (ABNORMAL) CULTURE WOUND+GRAM STAIN (02/04/2019 11:29 AM CDT) Culture Rare Staphylococcus aureus methicillin-resistan t (MRSA)(A) UMESH 02/06/2019 11:57 AM T [facility] Gram Stain Heavy Polymorphonuclear cells 02/06/2019 11:57 AM T [facility] Gram Stain Moderate Red blood cells 02/06/2019 11:57 AM T [facility] Gram Stain No organisms seen 019 11:57 AM T [facility] Microbiology ENTIRE HIP REGION / Unknown Collection / Unknown 02/04/2019 11:29 AM CDT 02/04/2019 12:01 PM CDT Narrative [facility] - 02/06/2019 11:57 AM CDT Methicillin-resistant Staphylococci (MRSA) are resistant to all currently available beta-lactam antibiotics with the exception of the newer cephalosporins with anti-MRSA activity. Contact precautions required. Surgical Description: Right Hip Organism Antibiotic Method Susceptibility Staphylococcus aureus methicillin-resistant (MRSA) Ciprofloxacin UMESH >=8 ug/mL: Resistant Staphylococcus aureus methicillin-resistant (MRSA) Clindamycin UMESH >=4 ug/mL: Resistant Staphylococcus aureus methicillin-resistant (MRSA) Doxycycline UMESH <=0.5 ug/mL: Susceptible Staphylococcus aureus methicillin-resistant (MRSA) Erythromycin UMESH >=8 ug/mL: Resistant Staphylococcus aureus methicillin-resistant (MRSA) Gentamicin UMESH <=0.5 ug/mL: Susceptible Staphylococcus aureus methicillin-resistant (MRSA) Inducible Clindamycin Resistance UMESH NEG ug/mL: Neg Staphylococcus aureus methicillin-resistant (MRSA) Levofloxacin UMESH >=8 ug/mL: Resistant Staphylococcus aureus methicillin-resistant (MRSA) Linezolid UMESH 2 ug/mL: Susceptible Staphylococcus aureus methicillin-resistant (MRSA) Oxacillin UMESH >=4 ug/mL: Resistant Staphylococcus aureus methicillin-resistant (MRSA) Tetracycline UMESH <=1 ug/mL: Susceptible Staphylococcus aureus methicillin-resistant (MRSA) Trimethoprim-sulfamethoxa zole UMESH <=10 ug/mL: Susceptible Staphylococcus aureus methicillin-resistant (MRSA) Vancomycin UMESH 1 ug/mL: Susceptible Larry Alexander MD LAB - MICROBIOLOGY ORDERABLES [facility] [address] [place] [address], [facility] [phone] * (ABNORMAL) CULTURE TISSUE+GRAM STAIN (02/04/2019 11:29 AM CDT) Only the most recent of2 resultswithin the time period is included. Culture Rare Staphylococcus aureus methicillin-resistan t (MRSA)(AA) UMESH 02/06/2019 11:37 AM [facility] Gram Stain Moderate Polymorphonuclear cells 02/06/2019 11:37 AM [facility] Gram Stain Heavy Red blood cells 02/06/2019 11:37 AM T [facility] Gram Stain No organisms seen 019 11:37 AM [facility] Microbiology ENTIRE HIP REGION / Unknown Collection / Unknown 02/04/2019 11:29 AM CDT 02/04/2019 12:08 PM CDT Narrative [facility] - 02/06/2019 11:37 AM CDT Methicillin-resistant Staphylococci (MRSA) are resistant to all currently available beta-lactam antibiotics with the exception of the newer cephalosporins with anti-MRSA activity. Contact precautions required. Surgical Description: Right Hip Organism Antibiotic Method Susceptibility Staphylococcus aureus methicillin-resistant (MRSA) Ciprofloxacin UMESH >=8 ug/mL: Resistant Staphylococcus aureus methicillin-resistant (MRSA) Clindamycin UMESH >=4 ug/mL: Resistant Staphylococcus aureus methicillin-resistant (MRSA) Doxycycline UMESH <=0.5 ug/mL: Susceptible Staphylococcus aureus methicillin-resistant (MRSA) Erythromycin UMESH >=8 ug/mL: Resistant Staphylococcus aureus methicillin-resistant (MRSA) Gentamicin UMESH <=0.5 ug/mL: Susceptible Staphylococcus aureus methicillin-resistant (MRSA) Inducible Clindamycin Resistance UMESH NEG ug/mL: Neg Staphylococcus aureus methicillin-resistant (MRSA) Levofloxacin UMESH >=8 ug/mL: Resistant Staphylococcus aureus methicillin-resistant (MRSA) Linezolid UMESH 2 ug/mL: Susceptible Staphylococcus aureus methicillin-resistant (MRSA) Oxacillin UMESH >=4 ug/mL: Resistant Staphylococcus aureus methicillin-resistant (MRSA) Tetracycline UMESH <=1 ug/mL: Susceptible Staphylococcus aureus methicillin-resistant (MRSA) Trimethoprim-sulfamethoxa zole UMESH <=10 ug/mL: Susceptible Staphylococcus aureus methicillin-resistant (MRSA) Vancomycin UMESH 1 ug/mL: Susceptible Larry Alexander MD LAB - MICROBIOLOGY ORDERABLES [facility] [address] [place] [address], [facility] [phone] * ENDOTRACHEAL TUBE NOTE (02/04/2019 11:02 AM CDT) Narrative Mikael Rosales APRN-CRNA - 02/04/2019 11:02 AM CDT Mikael Rosales APRN-CRNA ? 02/04/2019 11:03 AM Endotracheal Tube Placement: ? Patient Location: OR. Intubation Event Date/Time: ??02/04/2019 10:51 AM Procedure: intubation ([id number]). Procedure Section: ?? Sedation: under general anesthesia. Indications for Airway Management: ??anesthesia Induction: standard IV Patient Position: ??sniffing Mask Ventilation: easy. Blade Type: Juan Blade Size: 4 Laryngoscopy View: grade 2 (partial cords) Intubation Adjuncts: stylet and cricoid pressure Device: endotracheal tube Placement: oral Tube type: cuff - inflated Tube Size (MM): 8 Depth of Insertion (CM): 22 Measured From: lips Cuff Inflated With: air Number of Attempts: 1. Placement Verified By: direct visualization, bilateral breath sounds, chest auscultation and CO2 monitor Tube secured with: ??adhesive tape. Difficult Airway? ??No. Procedure Start Time: 02/04/2019 10:51 AM. Procedure End Time: 02/04/2019 10:52 AM. Procedure Total Time: 1 ??minutes. Staff Section ?? Anesthesia Provider: Mikael Rosales APRN-GUILLERMO, Performed the procedure Oziel Gilliam DO GENERAL ANESTHESIA O RDERABLES * PT PTT PANEL (02/04/2019 7:37 AM CDT) PT 11.1 9.5 - 11.6 sec 02/04/2019 9:12 AM CDT [facility] INR 1.0 0.9 - 1.1 02/04/2019 9:12 AM CDT [facility] PTT 26.4 21.0 - 32.0 sec 02/04/2019 9:12 AM CDT [facility] Blood BLOOD SPECIMEN / Unknown 02/04/2019 7:37 AM CDT 02/04/2019 9:03 AM CDT Narrative [facility] - 02/04/2019 9:12 AM CDT Conventional Warfarin Anticoagulant Therapy: INR Reference Range: ??2.0-3.0 Intensive Warfarin Anticoagulant Therapy: INR Reference Range: ? 2.5-3.5 Heparin Therapeutic Range for PTT: 50.5 - 74.3 seconds. Michelle Pratt MD LAB - COAGULATION O RDERABLES Performing Organization Address City/State/[facility] Co de Phone Number [facility] [address] [place] [address] * (ABNORMAL) URINALYSIS REFLEX MICROSCOPIC REFLEX CULTURE (02/04/2019 6:17 AM CDT) Color UA Yellow Straw, Yellow 02/04/2019 6:43 AM CDT [facility] Clarity UA Cloudy(A) Clear 02/04/2019 6:43 AM CDT [facility] Glucose UA Negative Negative 02/04/2019 6:43 AM CDT [facility] Bilirubin UA Negative Negative 02/04/2019 6:43 AM CDT [facility] Ketone UA Trace(A) Negative 02/04/2019 6:43 AM CDT [facility] Specific Meigs UA 1.021 1.005 - 1.030 02/04/2019 6:43 AM CDT [facility] Blood UA Negative Negative 02/04/2019 6:43 AM CDT [facility] pH UA 5.0 5.0 - 8.0 pH 02/04/2019 6:43 AM CDT [facility] Protein UA Negative Negative 02/04/2019 6:43 AM CDT [facility] Urobilinogen UA Negative Negative mg/dL 02/04/2019 6:43 AM CDT [facility] Nitrite UA Negative Negative 02/04/2019 6:43 AM CDT [facility] Leukocyte UA Negative Negative 02/04/2019 6:43 AM CDT [facility] Urine Microscopy Urine microscopy not indicated 02/04/2019 6:43 AM CDT [facility] Reflex Status Culture not indicated 02/04/2019 6:43 AM CDT [facility] Urine URINE SPECIMEN OBTAINED BY CLEAN CATCH PROCEDURE / Unknown Collection / Unknown 02/04/2019 6:17 AM CDT 02/04/2019 6:24 AM CDT Narrative [facility] - 02/04/2019 6:43 AM CDT Ascorbic Acid can cause false negative urine strip tests for blood, glucose, nitrite, and bilirubin. Yasmany Oh MD LAB - URINALYSIS ORD ERABLES Performing Organization Address City/State/[facility] Co de Phone Number [facility] [address] [place] [address] * XR FEMUR 2 VW RIGHT (02/03/2019 9:22 AM CDT) Anatomical Region Laterality Modality Lower Extremity Radiographic Shama ging 02/03/2019 10:4 6 AM CDT Impressions 02/03/2019 10:47 AM CDT Intact right total hip arthroplasty Mild knee medial compartment primary osteoarthritis Reading Radiologist: Darby Dangelo MD on 02/03/2019 at 10:47 AM Narrative 02/03/2019 10:47 AM CDT Right femur, 2 views DATE: 02/03/2019 INDICATION: Infected prosthesis. FINDINGS: A right total hip arthroplasty is normally aligned. ??No visible loosening or evidence of hardware failure. ??There is no fracture or bone destruction. ??A few traction osteophytes are noted from the acetabulum and greater trochanter. There are scattered osteophytes around the knee. ??The medial compartment is narrowed. ??No evidence of significant effusion. Procedure Note Darby Dangelo MD - 02/03/2019 Right femur, 2 views DATE: 02/03/2019 INDICATION: Infected prosthesis. FINDINGS: A right total hip arthroplasty is normally aligned. No visible loosening or evidence of hardware failure. There is no fracture or bone destruction. A few traction osteophytes are noted from the acetabulum and greater trochanter. There are scattered osteophytes around the knee. The medial compartment is narrowed. No evidence of significant effusion. IMPRESSION Intact right total hip arthroplasty Mild knee medial compartment primary osteoarthritis Reading Radiologist: Darby Dangelo MD on 02/03/2019 at 10:47 AM Jason Blackburn MD DIAGNOSTIC IMAGING O RDERABLES * MITOCHONDRIAL ANTIBODY SCREEN (06/02/2018 3:03 PM LEAD SYSTEMS DEVELOPER) Mitochondrial M2 Antibody <20.0 [facility] Comment: ?Reference Range: ?NEGATIVE: ??< OR = 20.0 ?EQUIVOCAL: 20.1-24.9 ?POSITIVE: ??> OR = 25.0 Test Performed at: [employer] [address] [place], [place] ??[address] ROSANNA BRYSON MD,PHD,ARIAS Blood BLOOD SPECIMEN / Unknown 06/02/2018 3:03 PM LEAD SYSTEMS DEVELOPER 06/02/2018 3:03 PM LEAD SYSTEMS DEVELOPER Aldo Vásquez MD LAB - CHEMISTRY ORDERABLES [facility] [[email or web address]] [address] [place] [address] * CARDIAC PROCEDURE ORDER (11/22/2017 4:17 PM CDT) Narrative 11/22/2017 4:17 PM CDT Ordered by an unspecified provider. Scanned Document CARDIAC SERVICES ORD ERABLES * (ABNORMAL) RBC MORPHOLOGY (09/19/2017 2:43 AM CDT) Only the most recent of7 resultswithin the time period is included. Platelet Estimate Adequate Adequate 09/19/2017 5:26 AM CDT [facility] Anisocytosis 1+(A) None 09/19/2017 5:26 AM CDT [facility] Microcytes Few(A) None 09/19/2017 5:26 AM CDT [facility] Macrocytosis 1+(A) None 09/19/2017 5:26 AM CDT [facility] Hypochromia 1+(A) None 09/19/2017 5:26 AM CDT [facility] Schistocytes Occasional(A ) None 09/19/2017 5:26 AM T [facility] Ovalocytes 1+(A) None 09/19/2017 5:26 AM T [facility] Blood BLOOD SPECIMEN / Unknown Venipuncture / Unknown 09/19/2017 2:43 AM CDT 09/19/2017 3:39 AM CDT Rebecca Melendez APRN-OFFICE CORRESPONDENT LAB - HEMATOLOGY ORDERABLES [address] [phone] * EGD (09/15/2017 8:58 AM CDT) Report Endoscopy POC Endoscopy Department Report _ Patient Name: José Miguel Keys ?Procedure Date: 09/15/2017 8:58 AM ? Date of : 1950 Classification: Inpatient ? Gender: Male _ Providers: ?Louis Mcconnell MD Referring MD: ? Cheri Singleton (Referring ) Procedure: ?Upper GI endoscopy Indications: ?Place PEG due to impaired swallowing, Place PEG due ?to aspiration risk Medications: ?Fentanyl 100 micrograms IV, Midazolam 3 mg IV Description of Procedure: After obtaining informed consent, the endoscope was ?passed under direct vision. Throughout the ?procedure, the patient's blood pressure, pulse, and ?oxygen saturations were monitored continuously. The ?GIF-H190 was introduced through the mouth, and ?advanced to the second part of duodenum. The upper ?GI endoscopy was accomplished without difficulty. ?The patient tolerated the procedure well. ? Findings: ? The esophagus was normal. ? The stomach was normal. ? The examined duodenum was normal. ? The patient was placed in the supine position for PEG placement. The ? stomach was insufflated to appose gastric and abdominal harper. A site ? was located in the body of the stomach with excellent transillumination ? and manual external pressure for placement. The abdominal wall was ? marked and prepped in a sterile manner. The area was anesthetized with 5 ? mL of 1% lidocaine. The trocar needle was introduced through the ? abdominal wall and into the stomach under direct endoscopic view. A ? snare was introduced through the endoscope and opened in the gastric ? lumen. The guide wire was passed through the trocar and into the open ? snare. The snare was closed around the guide wire. The endoscope and ? snare were removed, pulling the wire out through the mouth. A skin ? incision was made at the site of needle insertion. The externally ? removable 24 Fr Lonny-Cook gastrostomy tube was lubricated. The G-tube ? was tied to the guide wire and pulled through the mouth and into the ? stomach. The trocar needle was removed, and the gastrostomy tube was ? pulled out from the stomach through the skin. The external bumper was ? attached to the gastrostomy tube, and the tube was cut to remove the ? guide wire. The final position of the gastrostomy tube was confirmed by ? relook endoscopy, and skin marking noted to be 4.5 cm at the external ? bumper. The final tension and compression of the abdominal wall by the ? PEG tube and external bumper were checked and revealed that the bumper ? was loose and not touching the skin and that the PEG balloon was loose ? and not touching the stomach. The feeding tube was capped, and the tube ? site cleaned and dressed. ? Estimated Blood Loss: ? Estimated blood loss: none. Complications: ?No immediate complications. Impression: ? - Normal EGD ?- An externally removable PEG placement was ?successfully completed. ?- No specimens collected. Recommendation: ? - May use PEG today for meds and water and may use ?PEG tomorrow for feedings after check by GI fellow.. ? Attending Participation: ??I was present and participated during the entire ?procedure, including non-glaser portions. ? Procedure Code(s): ? --- Professional --- ? 82294, Esophagogastroduoden oscopy, flexible, transoral; with directed ? placement of percutaneous gastrostomy tube Diagnosis Code(s): ?--- Professional --- ?R13.10, Dysphagia, unspecified ?Z43.1, Encounter for attention to gastrostomy ?R63.3, Feeding difficulties CPT copyright 2016 [employer]. All rights reserved. The codes documented in this report are preliminary and upon call center assistant review may be revised to meet current compliance requirements. Louis Mcconnell MD 09/15/2017 10:44:23 AM Note Initiated On: 09/15/2017 8:58 AM Number of Addenda: 0 ? [facility] ? [address] [place] [address] [facility] 09/15/2017 8:58 AM CDT Louis Mcconnell MD GI PROCEDURE ORDERAB LES Performing Organization Address [facility] [facility] Co de Phone Number [facility] PROVATION * PTT [facility] (09/10/2017 5:49 AM CDT) Only the most recent of7 resultswithin the time period is included. APTT 29.7 23.0 - 38.4 Seconds 09/10/2017 5:58 AM CDT [facility] Comment: Suggested therapeutic range for full dose I.V. heparin therapy for venous thromboembolism is 66.0-91.0 seconds. Blood BLOOD SPECIMEN / Unknown Lab Venipuncture / Unknown 09/10/2017 5:49 AM CDT 09/10/2017 5:50 AM CDT Yogesh Duncan MD LAB - COAGULATION OR DERABLES Performing Organization Address [facility] Co de Phone Number [address] [phone] * (ABNORMAL) GLUCOSE ACCUCHECK (09/09/2017 11:31 PM CDT) Only the most recent of156 resultswithin the time period is included. Glucose, Fingerstick 127(H) 70-115mg/d L mg/dL [facility] ([facility]) Comment: Insulin Protocol Shingle Bolt Cutter: DEE ??GLENN 09/09/2017 11:3 1 PM CDT Jason Nash MD LAB - CHEMISTRY ROYCE KLINE Performing Organization Address [facility] Co de Phone Number [facility] * CULTURE AEROBIC (09/09/2017 3:41 PM CDT) Only the most recent of15 resultswithin the time period is included. Culture Aerobic Light Growth S [facility] Comment:Normal oropharyngeal robert Gram Stain light White Blood Cells [facility] Gram Stain No Organism Seen [facility] Bronchial Washings SPECIMEN FROM LUNG OBTAINED BY BRONCHIAL WASHING PROCEDURE / Unknown 09/09/2017 3:41 PM CDT 09/09/2017 3:47 PM CDT Narrative [facility] - 09/11/2017 6:41 AM CDT Specimen Type->Bronchial Washings Resulting Lab: ?? [facility] [address] [place] [address] PH: [phone] Jason Nash MD LAB - MICROBIOLOGY O RDERABLES Performing Organization Address [facility] Co de Phone Number [address] [phone] * LD BODY FLUID ([facility] ONLY) (09/08/2017 12:35 PM CDT) Only the most recent of3 resultswithin the time period is included. LD Fluid 172 Not Established For Fluids Units/L [facility] Comment:The reference range and other method performance specifications have not been established for this fluid. The test result must be integrated into the clinical context for interpretation. Pleural fluid specimen (specimen) PLEURAL FLUID / Unknown 09/08/2017 12:35 PM CDT 09/08/2017 12:48 PM CDT Jason Nash MD LAB - BODY FLUID ORD ERABLES Performing Organization Address [facility] de Phone Number [address] [phone] * GLUCOSE BODY FLUID ([facility] ONLY) (09/08/2017 12:35 PM CDT) Only the most recent of2 resultswithin the time period is included. Glucose Fluid 145 Not Established For Fluids mg/dL [facility] Comment:The reference range and other method performance specifications have not been established for this fluid. The test result must be integrated into the clinical context for interpretation. Pleural fluid specimen (specimen) PLEURAL FLUID / Unknown 09/08/2017 12:35 PM CDT 09/08/2017 12:48 PM CDT Jason Nash MD LAB - BODY FLUID ORD ERABLES Performing Organization Address [facility] Co de Phone Number [address] [phone] * PROTEIN FLUID (09/08/2017 12:35 PM CDT) Only the most recent of3 resultswithin the time period is included. Pathologist [facility] Protein Fluid 1.5 Not Established For Fluids g/dL [facility] Comment:The reference range and other method performance specifications have not been established for this fluid. The test result must be integrated into the clinical context for interpretation. Pleural fluid specimen (specimen) PLEURAL FLUID / Unknown 09/08/2017 12:35 PM CDT 09/08/2017 12:48 PM CDT Jason Nash MD LAB - BODY FLUID ORD ERABLES Performing Organization Address City/[facility]/ZIP Co de Phone Number [address] [phone] * DIFFERENTIAL MANUAL FLUID (09/08/2017 12:35 PM CDT) Only the most recent of5 resultswithin the time period is included. Pathologist [facility] Segs % Fluid 60 % [facility] Lymphocytes % Fluid 37 % [facility] Monocytes % Fluid 3 % [facility] Pleural fluid specimen (specimen) PLEURAL FLUID / Unknown 09/08/2017 12:35 PM CDT 09/08/2017 12:48 PM CDT Narrative [facility] - 09/08/2017 2:08 PM CDT No reference ranges established for body fluid differential. Jason Nash MD LAB - BODY FLUID ORD SP Performing Organization Address City/[facility]/[place] [address], [facility] [phone] * (ABNORMAL) CELL COUNT FLUID (09/08/2017 12:35 PM CDT) Only the most recent of5 resultswithin the time period is included. Pathologist [facility] Color Fluid Richards(A) Colorless, Straw [facility] Clarity Fluid Slighty Cloudy(A) Clear [facility] Volume Fluid 1.0 mL [facility] WBC Fluid 161 Reference Range Not Established /uL [facility] RBC Fluid 11,000 Reference Range Not Established /uL [facility] Differential Manual Differential to follow. [facility] Pleural fluid specimen (specimen) PLEURAL FLUID / Unknown 09/08/2017 12:35 PM CDT 09/08/2017 12:48 PM CDT Narrative [facility] - 09/08/2017 1:12 PM CDT No established reference ranges for WBC and RBC body fluid count. Jason Nash MD LAB - BODY FLUID ORD ERABLES [facility] [address] [phone] * CELL COUNT W DIFFERENTIAL FLUID (09/08/2017 12:35 PM CDT) Only the most recent of4 resultswithin the time period is included. Pleural fluid specimen (specimen) PLEURAL FLUID / Unknown 09/08/2017 12:35 PM CDT Narrative [facility] - 09/08/2017 2:08 PM CDT The following orders were created for panel order Body fluid cell count with diff. Procedure ? Abnormality ? Status ? --------- ? ------ ? Body fluid cell count wit...[[id number]] ??Abnormal ?Final result ? MANUAL DIFFERENTIAL FLUID[[id number]] ? Final result ? Please view results for these tests on the individual orders. Jason Nash MD LAB - BODY FLUID ORD ERABLES [facility] [address] * PH FLUID (09/08/2017 12:33 PM CDT) Only the most recent of4 resultswithin the time period is included. pH Fluid 7.610 Not Established For Fluids [facility] Comment:The reference range and other method performance specifications have not been established for this fluid. The test result must be integrated into the clinical context for interpretation. Fluid specimen (specimen) PLEURAL FLUID / Unknown 09/08/2017 12:33 PM CDT 09/08/2017 12:47 PM CDT Jason Nash MD LAB - BODY FLUID ORD ERABLES Performing Organization Address City/[facility]/ZIP Co de Phone Number [facility] [address] [phone] * CT CHEST WO CONTRAST (09/07/2017 1:52 PM CDT) Only the most recent of2 resultswithin the time period is included. Anatomical Region Laterality Modality Chest Other Impressions 09/07/2017 3:14 PM CDT IMPRESSION: 1. Grossly unchanged small to moderate left and small right loculated pleural effusions/empyema. Hypoattenuating foci within the consolidated-collapsed left lower lobe likely represent necrotizing pneumonia. Debris is identified in the left lower lobe bronchus. 2. Few new right pulmonary nodules measuring up to 5 mm which may represent infectious/inflammatory processes given the rapid development. Attention on follow-up is recommended. 3. 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 Dictated by Keaton Gómez MD (residential sales rep). I, Dr. Jason NAIK M.D. have personally reviewed and interpreted this examination/study. This report was electronically signed by Jason NAIK M.D. ??on 09/07/2017 3:14 PM . Narrative 09/07/2017 3:14 PM CDT EXAMINATION: Computed tomography (CT) of the chest without contrast HISTORY: Left pleural effusion? Loculation, copious secretions TECHNIQUE: CT of the chest was performed without contrast according to standard protocol. COMPARISON: Comparison is made with a study from 08/26/2017. FINDINGS: Evaluation of visceral and vascular structures is limited due to lack of intravenous contrast administration. 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 The aorta and main pulmonary arteries are normal in course and caliber. The coronary arteries and aorta are atherosclerotic. A right internal jugular approach central venous catheter terminates in the superior vena cava. Loculated small to moderate left pleural effusion is not significantly changed. There is associated atelectasis of the left lower and upper lobe. Debris is identified in the left lower lobe bronchi. Foci of low attenuation within the consolidated-collapsed left lower lobe may represent underlying necrotizing pneumonia. Small loculated right pleural effusion is also not significantly changed and tracks along the right major fissure. There is left lung volume loss with leftward mediastinal shift. There is no evidence of pneumothorax. A new 5 mm mildly spiculated nodule is seen in the right upper lobe (series 6 image 40). A new 2 mm nodule is seen in the right upper lobe (series 6 image 45). A 3 mm nodule in the right middle lobe (series 6 image 52) is unchanged. An additional 2 mm nodule in the right middle lobe is also unchanged (series 6 image 57) The trachea is patent and midline. A tracheostomy tube terminates 3.2 cm above the mattie. The heart size is normal. No pericardial effusion is present. No mediastinal, supraclavicular, or axillary lymphadenopathy is seen. The visible portions of the liver, spleen, pancreas, adrenal glands, kidneys, stomach, and bowel are normal. Minimal hyperattenuating material is noted in the dependent gallbladder although gallbladder is only partially imaged and may represent sludge. A nasogastric/orogastric tube can be followed to the stomach. Multilevel degenerative changes are present in the spine. There is reduced T6-T7 intervertebral disc height with endplate erosions representing discitis osteomyelitis, unchanged from prior examination. Body wall anasarca is noted. Procedure Note Brisa Naik MD - 09/10/2017 EXAMINATION: Computed tomography (CT) of the chest without contrast HISTORY: Left pleural effusion? Loculation, copious secretions TECHNIQUE: CT of the chest was performed without contrast according tostandard protocol. COMPARISON: Comparison is made with a study from 08/26/2017. FINDINGS: Evaluation of visceral and vascular structures is limited due to lack ofintravenous contrast administration. 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 The aorta and mainpulmonary arteries are normal in course and caliber. The coronary arteriesand aorta are atherosclerotic. A right internal jugular approach centralvenous catheter terminates in the superior vena cava. Loculated small to moderate left pleural effusion is not significantlychanged. There is associated atelectasis of the left lower and upper lobe.Debris is identified in the left lower lobe bronchi. Foci of lowattenuation within the consolidated-collapsed left lower lobe may represent underlyingnecrotizing pneumonia. Small loculated right pleural effusion is also notsignificantly changed and tracks along the right major fissure. There isleft lung volume loss with leftward mediastinal shift. There is no evidence of pneumothorax. A new 5 mm mildlyspiculated nodule is seen in the right upper lobe (series 6 image 40). Anew 2 mm nodule is seen in the right upper lobe (series 6 image 45). A 3mm nodule in the right middle lobe (series 6 image 52) is unchanged. An additional 2 mm nodule in theright middle lobe is also unchanged (series 6 image 57) The trachea ispatent and midline. A tracheostomy tube terminates 3.2 cm above thecarina. The heart size is normal. No pericardial effusion is present. Nomediastinal, supraclavicular, or axillary lymphadenopathy is seen. The visible portions of the liver, spleen, pancreas, adrenal glands,kidneys, stomach, and bowel are normal. Minimal hyperattenuating materialis noted in the dependent gallbladder although gallbladder is onlypartially imaged and may represent sludge. A nasogastric/orogastric tube can be followed to the stomach. Multilevel degenerative changes are present in the spine. There is reducedT6-T7 intervertebral disc height with endplate erosions representingdiscitis osteomyelitis, unchanged from prior examination. Body wallanasarca is noted. IMPRESSION IMPRESSION: 1. Grossly unchanged small to moderate left and small right loculatedpleural effusions/empyema. Hypoattenuating foci within theconsolidated-collapsed left lower lobe likely represent necrotizingpneumonia. Debris is identified in the left lower lobe bronchus. 2. Few new right pulmonary nodules measuring up to 5 mm which mayrepresent infectious/inflammatory processes given the rapid development.Attention on follow-up is recommended. 3. 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 Dictated by Keaton Gómez MD (residential sales rep). I, Dr. Jason NAIK M.D. have personally reviewed and interpreted thisexamination/study. This report was electronically signed by Jason NAIK M.D. on09/07/2017 3:14 PM . Jason Nash MD CT ORDERABLES * PROCALCITONIN LEVEL (09/07/2017 4:28 AM CDT) Only the most recent of5 resultswithin the time period is included. Procalcitonin 0.47 [facility] Blood specimen (specimen) BLOOD SPECIMEN / Unknown 09/07/2017 4:28 AM CDT 09/07/2017 4:35 AM CDT Narrative [facility] - 09/07/2017 5:53 AM CDT The change in procalcitonin (PCT) concentration over time provides support in decision making on antibiotic discontinuation for suspected or confirmed septic patients. Follow-up samples should be tested once every 1-2 days based upon physician discretion taking into account the patient? s evolution and progress. Consider discontinuation of ??antibiotic therapy ??if the PCT current ??is <= 0.5 ng/mL or if the delta PCT is > 80%. ??Duration of antibiotics should not be determined solely on PCT; established guidelines for the indication should be followed. ? PCT peak: ??Highest observed PCT concentration ? PCT current: Most recent PCT concentration ? Calculate delta PCT using the following equation: ?Delta PCT ??= ?? PCT Peak ? PCT current ??X 100% ? PCT Peak The Change in Procalcitonin Calculator is available at [email or web address] ?? If clinical picture has not improved and PCT remains high, reevaluate and consider treatment failure or other causes. Jason Nash MD LAB - CHEMISTRY ROYCE KLINE [address] [phone] * XR ABDOMEN KUB PORTABLE (09/06/2017 11:06 PM CDT) Only the most recent of18 resultswithin the time period is included. Anatomical Region Laterality Modality Other Impressions 09/07/2017 12:20 PM CDT IMPRESSION: A feeding tube terminates at the distal stomach/ pylorus. Findings of several dilated loops of small and large bowel is new compared to the previous study, incompletely evaluated on this study. Preliminary results were discussed with Dr. Costello by Dr. Hopkins on 09/07/2017 9:08 AM. Report dictated by Rohan Hopkins MD (residential sales rep). I, Dr. SULLY RUANO M.D. have personally reviewed and interpreted this examination/study. This report was electronically signed by SULLY RUANO M.D. ??on 09/07/2017 12:20 PM . Narrative 09/07/2017 12:20 PM CDT EXAMINATION: PX ABDOMEN 1 VW HISTORY: Enteric tube placement COMPARISON: 08/29/2017 Procedure Note Sully Ruano MD - 09/10/2017 EXAMINATION: PX ABDOMEN 1 VW HISTORY: Enteric tube placement COMPARISON: 08/29/2017 IMPRESSION IMPRESSION: A feeding tube terminates at the distal stomach/ pylorus. Findings of several dilated loops of small and large bowel is new comparedto the previous study, incompletely evaluated on this study. Preliminary results were discussed with Dr. Costello by Dr. Hopkins on09/07/2017 9:08 AM. Report dictated by Rohan Hopkins MD (residential sales rep). I, Dr. SULLY RUANO M.D. have personally reviewed and interpretedthis examination/study. This report was electronically signed by SULLY RUANO M.D. on09/07/2017 12:20 PM . Rebecca L Al FLASH DEVELOPER-OFFICE CORRESPONDENT DIAGNOSTIC IMAGIN G ORDERABLES * (ABNORMAL) BLOOD GASES ART COMPLETE [facility] OR (09/06/2017 4:21 PM CDT) Only the most recent of2 resultswithin the time period is included. pH Arterial 7.38 7.35 - 7.45 [facility] pCO2 Arterial 47(H) 35 - 45 mmHg [facility] pO2 Arterial 169(H) 71 - 95 mmHg [facility] HCO3 Arterial 27.0(H) 22.0 - 26.0 mmol/L [facility] TCO2 Arterial 28.4 25.0 - 29.0 mmol/L [facility] Base Excess Arterial 1.5 -2.0 - 2.0 mmol/L [facility] Hemoglobin Arterial 8.6(L) 13.5 - 17.5 g/dL [facility] Oxyhemoglobin Arterial 97.9 95.0 - 100.0 % [facility] Carboxyhemoglobin 0.3 0.0 - 3.0 % [facility] Methemoglobin 0.3 0.0 - 2.0 % [facility] FI O2 Arterial 50.0 % [facility] Ionized Calcium Whole Blood 1.14 mmol/L [facility] Adjusted Ionized Calcium 1.13(L) 1.19 - 1.34 mmol/L [facility] Sodium Whole Blood 140 135 - 145 mmol/L [facility] Potassium Whole Blood 4.2 3.5 - 5.5 mmol/L [facility] Chloride Whole Blood 109 101 - 111 mmol/L [facility] Glucose Whole Blood 134(H) 70 - 110 mg/dL [facility] Lactic Acid Whole Blood 2.5 0.5 - 3.4 mmol/L [facility] Blood specimen (specimen) 09/06/2017 4:21 PM CDT 09/06/2017 4:30 PM CDT Jason Nash MD LAB - BLOOD GASES OR DERABLES Performing Organization Address [facility] Co de Phone Number [address] [phone] * CULTURE LEGIONELLA (09/06/2017 2:05 PM CDT) Only the most recent of2 resultswithin the time period is included. Culture Legionella No Growth Legionella 1 week. [facility] Bronchial Washings SPECIMEN FROM LUNG OBTAINED BY BRONCHIAL WASHING PROCEDURE / Unknown 09/06/2017 2:05 PM CDT 09/06/2017 2:23 PM CDT Narrative [facility] - 09/13/2017 8:55 AM CDT Specimen Type->Bronchial Washings Resulting Lab: ?? [facility] [address] [place] [address] PH: [phone] Jason Nash MD LAB - MICROBIOLOGY O RDERABLES Performing Organization Address [facility] Co de Phone Number [address] [phone] * (ABNORMAL) DIGOXIN LEVEL (09/06/2017 12:02 PM CDT) Digoxin <0.3(L) 0.8 - 2.0 ng/mL [facility] Comment: The offset platemaker of Digoxin [employer] has stated that no immunoassay technique is suitable for quantitating digoxin in plasma/serum from patients on antibody fragment therapy. ? Blood specimen (specimen) BLOOD SPECIMEN / Unknown 09/06/2017 12:02 PM CDT 09/06/2017 12:08 PM CDT Bandar Mansfield MD LAB - CHEMISTRY OR DERABLES Performing Organization Address [facility]/ZIP Co de Phone Number [address] [phone] * TROPONIN I (09/06/2017 11:57 AM CDT) Only the most recent of2 resultswithin the time period is included. Troponin I 0.027 <0.032 ng/mL [facility] Blood specimen (specimen) BLOOD SPECIMEN / Unknown 09/06/2017 11:57 AM CDT 09/06/2017 12:08 PM CDT Bandar Mansfield MD LAB - CHEMISTRY OR DERABLES Performing Organization Address [facility]/[place] [address], [facility] [phone] * LDH BLOOD (09/02/2017 4:41 AM CDT) Only the most recent of2 resultswithin the time period is included. LDH Total 165 125 - 243 Units/L [facility] Blood specimen (specimen) BLOOD SPECIMEN / Unknown 09/02/2017 4:41 AM CDT 09/02/2017 4:47 AM CDT Poncho Bowers MD LAB - CHEMISTRY ORDE RAISA Performing Organization Address [facility] Co de Phone Number [address] [phone] * CT THORACENTESIS (09/01/2017 4:20 PM CDT) Anatomical Region Laterality Modality Other Impressions 09/06/2017 7:52 AM CDT Impression: CT guided thoracentesis on the right, of appx 300 ml of clear straw colored ??fluid, as described above. I Dr. Ramos performed/was present throughout the procedure. This report was electronically signed by VANDANA SANTIAGO M.D. ??on 09/06/2017 7:52 AM . Narrative 09/06/2017 7:52 AM CDT History: right pleural effusion, IR consulted for tube placement, concern for empyema Operators: 1. ??Dr. Ramos, Attending Physician Anesthesia: Local anesthesia - 10 ml of 1 % lidocaine. Procedure: 1. Limited non-contrast CT examination of chest. 2. CT guided thoracentesis on the right side. Procedure in Detail: The procedure and possible complications were explained to the patient in detail, and informed consent was obtained. The patient was placed in a supine on the CT table. Limited noncontrast CT examination of the chest was performed, which demonstrated the known the known small pleural effusion on the ??right side. An appropriate access site was marked on the skin in the chest. The marked site and skin around the region was prepped and draped in a sterile fashion. ??Local anesthesia was provided by the injection with 1% Lidocaine. ??A 19-gauge coaxial needle was advanced into the pleural cavity. The needle entry was documented. Upon fluid return, the outer sheath was advanced over the needle in to the peritoneal cavity. The needle was removed and the sheath was then connected to a vacuuntainer bottle and?approximately 300 ml of clear straw colored fluid was drained Appropriate amount of fluid was given for necessary laboratory evaluation. The fluid was sent for requested laboratory evaluation. Given that effusion is small and clear, decision was made to not place drainage catheter after discussion with ICU team (Dr. Duncan). Follow up CT examination demonstrated no immediate complication like hemorrhage or pneumothorax and resolution of pleural effusion. . The sheath was removed and sterile dressing was applied. ??The patient was transferred to the holding area in stable condition. There were no complications and the patient tolerated the procedure well.? Procedure Note Rachel-Vandana Kennedy MD - 09/10/2017 History: right pleural effusion, IR consulted for tube placement, concernfor empyema Operators: 1. Dr. Ramos, Attending Physician Anesthesia: Local anesthesia - 10 ml of 1 % lidocaine. Procedure: 1. Limited non-contrast CT examination of chest. 2. CT guided thoracentesis on the right side. Procedure in Detail: The procedure and possible complications wereexplained to the patient in detail, and informed consent was obtained. Thepatient was placed in a supine on the CT table. Limited noncontrast CT examination of the chest was performed, whichdemonstrated the known the known small pleural effusion on the rightside. An appropriate access site was marked on the skin in the chest. The marked site and skin around the region was prepped and draped in asterile fashion. Local anesthesia was provided by the injection with 1%Lidocaine. A 19- gauge coaxial needle was advanced into the pleuralcavity. The needle entry was documented. Upon fluid return, the outer sheath was advanced over the needle in to theperitoneal cavity. The needle was removed and the sheath was thenconnected to a vacuuntainer bottle and?approximately 300 ml of clear strawcolored fluid was drained Appropriate amount of fluid was given for necessary laboratory evaluation. The fluidwas sent for requested laboratory evaluation. Given that effusion is smalland clear, decision was made to not place drainage catheter afterdiscussion with ICU team (Dr. Duncan). Follow up CT examination demonstrated no immediate complication likehemorrhage or pneumothorax and resolution of pleural effusion. . The sheath was removed and sterile dressing was applied. The patient wastransferred to the holding area in stable condition. There were nocomplications and the patient tolerated the procedure well.? IMPRESSION Impression: CT guided thoracentesis on the right, of appx 300 ml of clearstraw colored fluid, as described above. I Dr. Ramos performed/was present throughout the procedure. This report was electronically signed by VANDANA SANTIAGO M.D. on09/06/2017 7:52 AM . Poncho Bowers MD CT ORDERABLES * SODIUM URINE RANDOM (09/01/2017 12:16 AM CDT) Only the most recent of3 resultswithin the time period is included. Sodium Urine 57 Not Established mmol/L [facility] Urine specimen (specimen) URINE SPECIMEN OBTAINED BY CLEAN CATCH PROCEDURE / Unknown 09/01/2017 12:16 AM CDT 09/01/2017 12:37 AM CDT Delphine Waddell FLASH DEVELOPER-OFFICE CORRESPONDENT LAB - URINE CHEM ISTRY ORDERABLES [address] [phone] * CREATININE URINE RANDOM (09/01/2017 12:16 AM CDT) Only the most recent of3 resultswithin the time period is included. Creatinine Urine 89 Not Established mg/dL [facility] Comment:Result obtained by [place]. Urine specimen (specimen) URINE SPECIMEN OBTAINED BY CLEAN CATCH PROCEDURE / Unknown 09/01/2017 12:16 AM CDT 09/01/2017 12:37 AM CDT [facility]INE CHEM ISTRY ORDERABLES Performing Organization Address [facility]/ZIP Co de Phone Number [address] [phone] * (ABNORMAL) HEMATOCRIT (08/31/2017 2:52 PM CDT) Pathologist [facility] Hematocrit 26.7(L) 39.0 - 50.0 % [facility] Blood specimen (specimen) BLOOD SPECIMEN / Unknown 08/31/2017 2:52 PM CDT 08/31/2017 3:00 PM CDT Narrative [facility] - 08/31/2017 3:07 PM CDT 2 hours after transfusion Delphine [facility] LAB - HEMATOLOGY ORDERABLES Performing Organization Address [facility] Co de Phone Number [address] [phone] * (ABNORMAL) HEMOGLOBIN (08/31/2017 2:52 PM CDT) [facility] Hemoglobin 8.0(L) 13.5 - 17.5 g/dL [facility] Comment:Confirmed by repeat analysis. Blood specimen (specimen) BLOOD SPECIMEN / Unknown 08/31/2017 2:52 PM CDT 08/31/2017 3:00 PM CDT [facility] ORDERABLES Performing Organization Address [facility] Co de Phone Number [address] [phone] * CROSSMATCH RBC LEUKOREDUCED (08/31/2017 7:59 AM CDT) Only the most recent of4 resultswithin the time period is included. Pathologist [facility] Unit RBC-WBCD [id number] transfused [facility] BLOOD BANK PRODUCTS (BEAKER) Unit ABO A [facility] BLOOD BANK PRODUCTS (BEAKER) Unit Rh POS [facility] BLOOD BANK PRODUCTS (BEAKER) Unit Number [id number] [facility] BLOOD BANK PRODUCTS (BEAKER) Unit Status Transfused [facility] BLO OD BANK PRODUCTS (BEAKER) 08/31/2017 7:59 AM CDT 08/31/2017 7:59 AM CDT Narrative [facility] BLOOD BANK PRODUCTS (BEAKER) - 08/31/2017 7:59 AM CDT # of Units->1 Delphine Waddell APRN-OFFICE CORRESPONDENT LAB - BLOOD BANK ORDERABLES [facility] BLOOD BANK PRODUCTS (BEAKER) * CULTURE SPUTUM+GRAM STAIN (08/27/2017 9:53 AM CDT) Culture Sputum Light Growth [facility] Comment:Normal respiratory f paulie Gram Stain <10 per low power field Epithelial Cells per low power field [facility] Gram Stain >= 25 per low power field Polymorphonuclear Cells [facility] Gram Stain No Organism Seen [facility] Sputum specimen (specimen) SPUTUM / Unknown 08/27/2017 9:53 AM CDT 08/27/2017 10:17 AM CDT Narrative [facility] - 08/29/2017 11:32 AM CDT Specimen Type->Sputum Resulting Lab: ?? [facility] [address] [place] [address] PH: [phone] Delphine Waddell APRN-OFFICE CORRESPONDENT LAB - MICROBIOLO GY ORDERABLES Performing Organization Address City/[facility]/ZIP Co de Phone Number [address] [phone] * (ABNORMAL) HEPATIC FUNCTION PANEL (08/27/2017 5:01 AM CDT) Only the most recent of2 resultswithin the time period is included. Protein Total 6.3 6.0 - 8.3 g/dL [facility] Albumin 1.6(L) 3.4 - 5.0 g/dL [facility] Bilirubin Total 0.7 0.2 - 1.2 mg/dL [facility] Bilirubin Conjugated 0.5 0.0 - 0.5 mg/dL [facility] Bilirubin Unconjugated 0.2 Unconjugated Bilirubin is a calculated value: Reference ranges have not been established. mg/dL [facility] Alkaline Phosphatase 323(H) 40 - 150 Units/L [facility] ALT 23 0 - 55 Units/L [facility] AST 29 5 - 34 Units/L [facility] Albumin/Globulin Ratio 0.3(L) 1.1 - 2.3 [facility] Blood specimen (specimen) BLOOD SPECIMEN / Unknown 08/27/2017 5:01 AM CDT 08/27/2017 5:06 AM CDT Delphine Nadira FLASH DEVELOPER-OFFICE CORRESPONDENT LAB - CHEMISTRY ORDERABLES [address] [phone] * CT CHEST ABDOMEN PELVIS W CONT (08/26/2017 4:53 PM CDT) Only the most recent of2 resultswithin the time period is included. Anatomical Region Laterality Modality Chest, Abdomen, Pelvis Other Impressions 08/27/2017 11:20 AM CDT IMPRESSION: 1. Interval removal of left thoracostomy tube and right pleural pigtail catheter with interval increase in size of the loculated left pleural effusion/empyema and associated left upper and lower lobe atelectatic collapse/consolidation. Areas of hypoenhancement within the consolidated left lower lobe likely represent necrotizing pneumonia. 2. Interval decrease in size of the loculated right pleural effusion with a tiny locule of gas and associated persistent right lower lobe atelectasis/consolidation. 3. Stable postoperative changes of placement of an interbody cage at L1-2 for treatment of discitis osteomyelitis at L1-2. There is interval decrease in the asymmetric enlargement of the left iliopsoas muscle likely representing resolving postoperative hematoma and abscess. 4. Unchanged endplate centered erosions at T6-T7 representing discitis osteomyelitis with unchanged associated paraspinal soft tissue thickening. Findings were relayed to Dr. Quintero ?? on 08/26/[address] Manning at 5:30 PM. Dictated by Jorge Manning MD (Echometer Engineer). I, Dr. SAMANTHA PICHARDO M.D. have personally reviewed and interpreted this examination/study. This report was electronically signed by SAMANTHA PICHARDO M.D. ??on 08/27/2017 11:20 AM . Narrative 08/27/2017 11:20 AM CDT EXAMINATION: Computed tomography (CT) of the chest, abdomen, and pelvis with contrast HISTORY: Trauma, pain TECHNIQUE: CT of the chest, abdomen, and pelvis was performed after the uneventful administration of 100 mL of Omnipaque 350 intravenous contrast according to standard protocol. COMPARISON: Comparison is made with a study from 08/09/2017. FINDINGS: Vascular: The aorta and main pulmonary arteries are normal in course and caliber. The coronary arteries are extensively atherosclerotic. The aorta is moderately atherosclerotic. The main pulmonary artery is dilated measuring 3.7 cm, likely representing pulmonary hypertension. A linear filling defect in the right internal jugular vein likely represents a nonocclusive thrombus (series 5 image 1 through 7). Chest: The left thoracostomy tube and right pleural pigtail catheter has been removed. There is interval increase in size of the left loculated pleural effusion/empyema with associated left upper and lower lobe consolidation and atelectasis. Areas of hypoenhancement in the consolidated left lower lobe may represent necrotizing pneumonia. There is interval decrease in size of a loculated a small right pleural effusion with associated consolidation and atelectasis in the right lower lobe. A gas locule is identified in the loculated right pleural effusion. There is no evidence of pneumothorax. Stranding in the soft tissues of left lower lateral chest wall and lateral left upper abdomen (image 112, series 5) is likely related to prior thoracostomy tube insertion, superimposed infection cannot be excluded and clinical correlation is recommended. There is debris as well as some narrowing of the left mainstem bronchus as well as the left lower lobe bronchi. The heart size is normal. No pericardial effusion is present. Subcentimeter mediastinal and hilar lymph nodes are present. There are calcified hilar and mediastinal lymph nodes representing old granulomatous disease. The thyroid gland enhances homogeneously. Subcutaneous stranding and fluid in the left lateral lower chest/upper abdominal wall likely relates to the insertion site of prior left thoracostomy tube. Abdomen/Pelvis: The liver enhances homogenously. The gallbladder is normal without evidence of wall thickening, pericholecystic fluid, or gallstones. The intrahepatic and extrahepatic bile ducts are nondilated. The spleen enhances homogenously without focal lesions. There is a small splenule located anterior to the spleen. The pancreas is atrophic. The adrenal glands are normal. Small hypoattenuating foci are seen in the left kidney, which are too small to characterize but likely represent cysts. Mild bilateral perinephric stranding is a nonspecific finding and appears unchanged. There is no evidence of renal calculi or hydronephrosis. The esophagus and stomach appear normal. There is a small duodenal diverticulum along the right lateral aspect of the second segment of the duodenum containing fluid with gas and trace contrast measuring 1.6 x 1.1 cm (image 106 series 5), this is not significantly changed from prior studies. The small bowel and large bowel are normal in caliber without evidence of wall thickening or obstruction. The appendix is not visualized; however, no inflammatory changes are seen in the right lower quadrant. No free air or free fluid is identified within the abdomen. The bladder is partially distended with fluid. 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 No free pelvic fluid is seen. Postsurgical changes of an interbody cage at L1-2 are redemonstrated. Disc centered erosions at T6-7 and L1-2 are grossly unchanged from prior examinations consistent with discitis osteomyelitis. There is unchanged paraspinal soft tissue thickening at T6-T7 levels. There is interval decrease in the asymmetric enlargement of the left iliopsoas muscle likely representing combination of resolving postoperative hematoma and abscess. The previously identified enlargement of the right psoas muscle on examination of 07/20/2017 is decreased but is unchanged since 08/09/2017. Advanced multilevel degenerative changes of the thoracolumbar spine Procedure Note Samantha Pichardo MD - 09/10/2017 EXAMINATION: Computed tomography (CT) of the chest, abdomen, and pelviswith contrast HISTORY: Trauma, pain TECHNIQUE: CT of the chest, abdomen, and pelvis was performed after theuneventful administration of 100 mL of Omnipaque 350 intravenous contrastaccording to standard protocol. COMPARISON: Comparison is made with a study from 08/09/2017. FINDINGS: Vascular: The aorta and main pulmonary arteries are normal in course and caliber.The coronary arteries are extensively atherosclerotic. The aorta ismoderately atherosclerotic. The main pulmonary artery is dilated measuring3.7 cm, likely representing pulmonary hypertension. A linear filling defect in the right internal jugular veinlikely represents a nonocclusive thrombus (series 5 image 1 through 7). Chest: The left thoracostomy tube and right pleural pigtail catheter has beenremoved. There is interval increase in size of the left loculated pleuraleffusion/empyema with associated left upper and lower lobe consolidationand atelectasis. Areas of hypoenhancement in the consolidated left lowerlobe may represent necrotizing pneumonia. There is interval decrease in size of a loculated a small right pleuraleffusion with associated consolidation and atelectasis in the right lowerlobe. A gas locule is identified in the loculated right pleural effusion.There is no evidence of pneumothorax. Stranding in the soft tissues of left lower lateral chestwall and lateral left upper abdomen (image 112, series 5) is likelyrelated to prior thoracostomy tube insertion, superimposed infectioncannot be excluded and clinical correlation is recommended. There is debris as well as some narrowing of the leftmainstem bronchus as well as the left lower lobe bronchi. The heart size is normal. No pericardial effusion is present.Subcentimeter mediastinal and hilar lymph nodes are present. There arecalcified hilar and mediastinal lymph nodes representing old granulomatousdisease. The thyroid gland enhances homogeneously. Subcutaneous stranding and fluid in the left lateral lowerchest/upper abdominal wall likely relates to the insertion site of priorleft thoracostomy tube. Abdomen/Pelvis: The liver enhances homogenously. The gallbladder is normal withoutevidence of wall thickening, pericholecystic fluid, or gallstones. Theintrahepatic and extrahepatic bile ducts are nondilated. The spleenenhances homogenously without focal lesions. There is a small splenule located anterior to the spleen. The pancreas isatrophic. The adrenal glands are normal. Small hypoattenuating foci areseen in the left kidney, which are too small to characterize but likelyrepresent cysts. Mild bilateral perinephric stranding is a nonspecific finding and appears unchanged.There is no evidence of renal calculi or hydronephrosis. The esophagus and stomach appear normal. There is a small duodenaldiverticulum along the right lateral aspect of the second segment of theduodenum containing fluid with gas and trace contrast measuring 1.6 x 1.1cm (image 106 series 5), this is not significantly changed from prior studies. The small bowel and large bowelare normal in caliber without evidence of wall thickening or obstruction.The appendix is not visualized; however, no inflammatory changes are seenin the right lower quadrant. No free air or free fluid is identified within the abdomen. The bladder is partially distended with fluid. Beam hardening artifactsecondary to bilateral hip arthroplasties obscures visualization of pelvicstructures. No free pelvic fluid is seen. Postsurgical changes of an interbody cage at L1-2 are redemonstrated. Disccentered erosions at T6-7 and L1-2 are grossly unchanged from priorexaminations consistent with discitis osteomyelitis. There is unchangedparaspinal soft tissue thickening at T6-T7 levels. There is interval decrease in the asymmetric enlargement ofthe left iliopsoas muscle likely representing combination of resolvingpostoperative hematoma and abscess. The previously identified enlargementof the right psoas muscle on examination of 07/20/2017 is decreased but is unchanged since 08/09/2017.Advanced multilevel degenerative changes of the thoracolumbar spine IMPRESSION IMPRESSION: 1. Interval removal of left thoracostomy tube and right pleural pigtailcatheter with interval increase in size of the loculated left pleuraleffusion/empyema and associated left upper and lower lobe atelectaticcollapse/consolidation. Areas of hypoenhancement within the consolidated left lower lobe likely representnecrotizing pneumonia. 2. Interval decrease in size of the loculated right pleural effusion witha tiny locule of gas and associated persistent right lower lobeatelectasis/consolidation. 3. Stable postoperative changes of placement of an interbody cage at L1-2for treatment of discitis osteomyelitis at L1-2. There is intervaldecrease in the asymmetric enlargement of the left iliopsoas muscle likelyrepresenting resolving postoperative hematoma and abscess. 4. Unchanged endplate centered erosions at T6-T7 representing discitisosteomyelitis with unchanged associated paraspinal soft tissuethickening. Findings were relayed to Dr. Quintero on 08/26/[address] Manning at 5:30PM. Dictated by Jorge Manning MD (Echometer Engineer). I, Dr. SAMANTHA PICHARDO M.D. have personally reviewed and interpreted thisexamination/study. This report was electronically signed by SAMANTHA PICHARDO M.D. on 08/27/201711:20 AM . Yvonne Mcdonald MD CT ORDERABLES * CULTURE URINE (08/26/2017 2:20 PM CDT) Only the most recent of7 resultswithin the time period is included. Culture Urine <10,000 CFU/ML urogenital robert [facility] Comment: Urine specimen (specimen) URINE / Unknown 08/26/2017 2:20 PM CDT 08/26/2017 2:30 PM CDT Narrative [facility] - 08/28/2017 10:27 AM CDT Specimen Type->Urine Resulting Lab: ?? [facility] [address] [place] [address] PH: [phone] Resulting Lab: ?? [facility] [address] [place] [address] PH: [phone] Resulting Lab: ?? [facility] [address] [place] [address] PH: [phone] Nas Winters MD LAB - MICROBIOLOGY O RDERABLES Performing Organization Address City/[facility]/ZIP Co de Phone Number [address] [phone] * (ABNORMAL) CK + CKMB PANEL (08/26/2017 2:20 PM CDT) CK Total 19(L) 30 - 200 Units/L [facility] CK-MB 0.9 0.0 - 6.6 ng/mL [facility] Blood specimen (specimen) BLOOD SPECIMEN / Unknown 08/26/2017 2:20 PM CDT 08/26/2017 2:28 PM CDT Nas Wniters MD LAB - CHEMISTRY ROYCE KLINE Performing Organization Address City/[facility]/ZIP Co de Phone Number [address] [phone] * (ABNORMAL) BLOOD GASES BRADY (08/26/2017 2:20 PM CDT) Only the most recent of7 resultswithin the time period is included. pH Mixed Venous 7.42(H) 7.30 - 7.40 [facility] pCO2 Mixed Venous 53(H) 40 - 46 mmHg [facility] pO2 Mixed Venous 33(L) 35 - 42 mmHg [facility] HCO3 Mixed Venous 33.4(H) 22.0 - 26.0 mmol/L [facility] TCO2 Mixed Venous 35.1(H) 25.0 - 29.0 mmol/L [facility] Base Excess Venous 8.0(H) -2.0 - 2.0 mmol/L [facility] Hemoglobin Mixed Venous 8.4(L) 13.5 - 17.5 g/dL [facility] Oxyhemoglobin Mixed Venous 56.4(L) 66.0 - 77.0 % [facility] Carboxyhemoglobin Venous 0.3 0.0 - 3.0 % [facility] Methemoglobin 0.1 0.0 - 2.0 % [facility] FI O2 Mixed Venous 35.0 % [facility] Blood specimen (specimen) BLOOD SPECIMEN / Unknown 08/26/2017 2:20 PM CDT 08/26/2017 2:27 PM CDT Narrative [facility] - 08/26/2017 2:30 PM CDT FI02->35 Nas Winters MD LAB - BLOOD GASES OR DERABLES [facility] [address] [place] [address] * MRI BRAIN WWO CONTRAST (08/14/2017 5:05 PM CDT) Only the most recent of2 resultswithin the time period is included. Anatomical Region Laterality Modality Head Other Impressions 08/15/2017 10:41 AM CDT IMPRESSION: 1. Evolving late subacute hemorrhages in the right frontal lobe and right external capsule with indeterminate diffusion restriction and mild enhancement. Given lack of significant surrounding edema, these are favored to represent bland hemorrhages, although superimposed infection cannot be completely excluded. Unchanged chronic blood products in the left cerebellar hemisphere. No new acute intracranial abnormality identified. This report was approved ??by Alan Dennis ?? on 08/15/2017 9:27 AM . I, Dr. JEREMIAH MENDOZA M.D. have personally reviewed and interpreted this examination/study. This report was electronically signed by JEREMIAH MENDOZA M.D. ??on 08/15/2017 10:41 AM . Narrative 08/15/2017 10:41 AM CDT This is a summary report. The complete report is available in the patient's medical record. If you cannot access the medical record, please contact the sending organization for a detailed fax or copy. EXAMINATION: Magnetic resonance imaging (MRI) of the brain without and with contrast HISTORY: Altered mental status, history of MRSA bacteremia and intracranial hemorrhage TECHNIQUE: MRI of the brain was performed prior to and following the uneventful administration of 10 mL Gadavist intravenous gadolinium contrast according to standard protocol. FINDINGS: Comparison is made to brain MRI from 07/28/[address] from 07/30/2017. Evolving intra-axial hemorrhages in the right frontal lobe and right external capsule are seen with mild associated enhancement. Overall, the conspicuity of the blood products has decreased. Apparent diffusion restriction in these regions is indeterminate. No new hemorrhage is identified. A focus of magnetic susceptibility artifact in the medial left cerebellar hemisphere is also unchanged and likely represents an additional focus of hemorrhage or cavernoma. There is mild cerebral volume loss with associated ex vacuo ventricular dilatation. A cavum septum pellucidum et vergae is incidentally noted. No significant mass effect or midline shift is identified. Periventricular and subcortical white matter FLAIR hyperintensities likely represent sequelae of chronic small vessel ischemic disease. No additional enhancing lesions are identified. The corpus callosum and sella appear normal. The brainstem and craniocervical junction appear normal. There is severe right sphenoid sinus disease. Bilateral mastoid effusions are present. The orbits appear normal. Normal flow voids are demonstrated in the carotid arteries and basilar artery. The calvarium and visualized cervical spine appear normal. A lipoma is noted in the left suboccipital scalp (series 8, image 3) with adjacent soft tissue irregularity which may be related to prior procedure. Procedure Note Jeremiah Mendoza MD - 09/07/2017 This is a summary report. The complete report is available in thepatient's medical record. If you cannot access the medical record, pleasecontact the sending organization for a detailed fax or copy. EXAMINATION: Magnetic resonance imaging (MRI) of the brain without andwith contrast HISTORY: Altered mental status, history of MRSA bacteremia andintracranial hemorrhage TECHNIQUE: MRI of the brain was performed prior to and following theuneventful administration of 10 mL Gadavist intravenous gadoliniumcontrast according to standard protocol. FINDINGS: Comparison is made to brain MRI from 07/28/[address] from07/30/2017. Evolving intra-axial hemorrhages in the right frontal lobe and rightexternal capsule are seen with mild associated enhancement. Overall, theconspicuity of the blood products has decreased. Apparent diffusionrestriction in these regions is indeterminate. No new hemorrhage is identified. A focus of magneticsusceptibility artifact in the medial left cerebellar hemisphere is alsounchanged and likely represents an additional focus of hemorrhage orcavernoma. There is mild cerebral volume loss with associated ex vacuo ventricular dilatation. A cavum septumpellucidum et vergae is incidentally noted. No significant mass effect ormidline shift is identified. Periventricular and subcortical white matterFLAIR hyperintensities likely represent sequelae of chronic small vessel ischemic disease. No additionalenhancing lesions are identified. The corpus callosum and sella appearnormal. The brainstem and craniocervical junction appear normal. There is severe right sphenoid sinus disease. Bilateral mastoid effusionsare present. The orbits appear normal. Normal flow voids are demonstratedin the carotid arteries and basilar artery. The calvarium and visualizedcervical spine appear normal. A lipoma is noted in the left suboccipital scalp (series 8, image 3) withadjacent soft tissue irregularity which may be related to priorprocedure. IMPRESSION IMPRESSION: 1. Evolving late subacute hemorrhages in the right frontal lobe and rightexternal capsule with indeterminate diffusion restriction and mildenhancement. Given lack of significant surrounding edema, these arefavored to represent bland hemorrhages, although superimposed infection cannot be completely excluded. Unchangedchronic blood products in the left cerebellar hemisphere. No new acuteintracranial abnormality identified. This report was approved by Alan Dennis on 08/15/2017 9:27 AM . I, Dr. JEREMIAH MENDOZA M.D. have personally reviewed and interpreted thisexamination/study. This report was electronically signed by JEREMIAH MENDOZA M.D. on 08/15/201710:41 AM . Angela Corona MD MR ORDERABLES * (ABNORMAL) URINALYSIS W/MICROSCOPIC NO CULTURE (08/11/2017 6:43 PM LEAD SYSTEMS DEVELOPER) Only the most recent of6 resultswithin the time period is included. Color UA Yellow Straw, Yellow, Colorless, Light Yellow [facility] Clarity UA Clear Clear [facility] Specific Meigs UA 1.014 1.001 - 1.030 [facility] pH UA 5.5 5.0 - 8.0 [facility] Protein UA 20 <=20 mg/dL [facility] Glucose UA Negative Negative mg/dL [facility] Ketone UA Trace(A) Negative mg/dL [facility] Bilirubin UA Negative Negative mg/dL [facility] Blood UA Negative Negative [facility] Nitrite UA Negative Negative [facility] Leukocyte Esterase Moderate(A) Negative [facility] Urobilinogen UA <2.0 <2.0 mg/dL [facility] RBC UA 6 0 - 8 /HPF [facility] WBC UA 12(H) 0 - 2 /HPF [facility] Bacteria UA Rare Rare, Occasional, None /HPF [facility] Mucus UA Moderate(A) None /LPF [facility] Urine specimen (specimen) URINE SPECIMEN OBTAINED BY CLEAN CATCH PROCEDURE / Unknown 08/11/2017 6:43 PM LEAD SYSTEMS DEVELOPER 08/11/2017 7:02 PM LEAD SYSTEMS DEVELOPER Angela Cornoa MD LAB - URINALYSIS ORD ERABLES Performing Organization Address City/State/[facility] Co de Phone Number [address] [phone] * RESPIRATORY PATHOGEN PANEL BY PCR (08/09/2017 8:07 PM LEAD SYSTEMS DEVELOPER) Only the most recent of2 resultswithin the time period is included. Adenovirus Not Detected Not Detected, Indetermin ate, Invalid [facility] Human Metapneumovirus Not Detected Not Detected, Indetermin ate, Invalid [facility] Rhinovirus/Enterov irus Not Detected Not Detected, Indetermin ate, Invalid [facility] Influenza A Non subtyped Not Detected Not Detected, Indetermin ate, Invalid [facility] Influenza A H1 Not Detected Not Detected, Indetermin ate, Invalid [facility] Influenza A H3 Not Detected Not Detected, Indetermin ate, Invalid [facility] Influenza A H1 2009 Not Detected Not Detected, Indetermin ate, Invalid [facility] Influenza B Not Detected Not Detected, Indetermin ate, Invalid [facility] Mycoplasma pneumoniae Not Detected Not Detected, Indetermin ate, Invalid [facility] Parainfluenza 1 Not Detected Not Detected, Indetermin ate, Invalid [facility] Parainfluenza 2 Not Detected Not Detected, Indetermin ate, Invalid [facility] Parainfluenza 3 Not Detected Not Detected, Indetermin ate, Invalid [facility] Parainfluenza 4 Not Detected Not Detected, Indetermin ate, Invalid [facility] Respiratory Syncytial Virus Not Detected Not Detected, Indetermin ate, [facility] Bordetella pertussis Not Detected Not Detected, Indetermin ate, Invalid [facility] Coronavirus Not Detected Not Detected, Indetermin ate, Invalid [facility] Nasopharyngeal NASOPHARYNGEAL SWAB / Unknown 08/09/2017 8:07 PM LEAD SYSTEMS DEVELOPER 08/09/2017 8:23 PM LEAD SYSTEMS DEVELOPER Narrative [facility] - 08/10/2017 4:20 AM LEAD SYSTEMS DEVELOPER Coronavirus PCR detects the following coronaviruses: 229E, HKU1, NL63, OC43. Resulting Lab: ?? [facility] [address] [place] [address] PH: [phone] Angela Corona MD LAB - MICROBIOLOGY O RDERABLES Performing Organization Address City/State/[facility] Co de Phone Number [address] [phone] * STREP PNEUMONIAE ANTIGEN URINE (08/09/2017 8:07 PM LEAD SYSTEMS DEVELOPER) Only the most recent of2 resultswithin the time period is included. Streptococcus pneumoniae Antigen Urine Negative Negative [facility] Urine specimen (specimen) URINE / Unknown 08/09/2017 8:07 PM LEAD SYSTEMS DEVELOPER 08/09/2017 8:23 PM LEAD SYSTEMS DEVELOPER Narrative [facility] - 08/11/2017 8:42 AM LEAD SYSTEMS DEVELOPER Comment: Patients who have received the Streptococcus pneumoniae vaccines may test positive in the 48 hours following vaccination. It is recommended to avoid testing within five days of receiving vaccination. Testing pediatric patients is discouraged because of their high rates of nasal colonization with Streptococcus pneumoniae leading to false positive results. Samples from patients taking antibiotics for more than 24 hours may cause false negatives. Resulting Lab: ?? [facility] [address] [place] [address] PH: [phone] Angela Corona MD LAB - MICROBIOLOGY O RDERABLES [facility] [address] [place] [id number], [facility] [phone] * CT LUMBAR SPINE WO CONTRAST (08/09/2017 6:30 PM LEAD SYSTEMS DEVELOPER) Only the most recent of2 resultswithin the time period is included. Anatomical Region Laterality Modality Spine Other Impressions 08/10/2017 12:17 PM LEAD SYSTEMS DEVELOPER IMPRESSION: 1. Increase in the endplate erosion at level T6-7 representing increase in the discitis/osteophytosis at this level. Unchanged destruction of lower endplate of L1 similar to prior. 2. Stable left psoas abscess. 3. Bilateral pleural effusions right greater than left, and bilateral left greater than right upper lobe consolidations representing pneumonia, grossly unchanged. This report was approved ??by Omi Silverio ?? on 08/10/2017 11:57 AM . I, Dr. KJ MENDEZ have personally reviewed and interpreted this examination/study. This report was electronically signed by KJ MENDEZ ??on 08/10/2017 12:17 PM . Narrative 08/10/2017 12:17 PM LEAD SYSTEMS DEVELOPER EXAMINATION: 1. CT of the thoracic spine without contrast 2. CT of the lumbar spine without contrast HISTORY: comparison to prior CT spines regarding follow up for discitis/osteomyelitis TECHNIQUE: CT of the cervical spine were performed without contrast according to standard protocol. Reformatted axial, sagittal, and coronal images of the thoracic and lumbar spine were obtained by the technologist from a concurrently performed body CT and sent to the workstation for review. FINDINGS: Comparison is made with a CT spine lumbar and thoracic from 07/28/2017. Thoracic spine: The endplate erosions at the level T6-7 representing discitis and osteomyelitis (as per prior CT spine from 07/28/2017 and prior MR spine from 07/26/2017) has increased in interval. This is associated with soft tissue swelling in surrounding of the prevertebral tissues adjacent to this level. There are 12 rib-bearing thoracic vertebrae and 5 nonrib-bearing lumbar vertebrae. The alignment remains normal. Vertebral bodies are normal in height without evidence of acute fracture.Diffuse idiopathic skeletal hyperostosis is again seen in T5-T12. levels There is a central posterior disc protrusion at C5-6. Moderate to advanced disc disease is seen at the levels T6-T10. No central canal stenosis is seen. There are varying degrees of mild facet osteoarthritis. No neural foraminal stenosis is seen. Large right and moderate left pleural effusions are again seen with associated left greater than right pulmonary consolidation representing pneumonia.Left chest tube is also seen. Lumbar spine: There is an interval intervertebral disc spacer placement at level L1-2. There is grade 1 retrolisthesis of L2 on 3 and anterolisthesis of L4 and L5, unchanged. The destruction of the inferior endplate of L1 is unchanged. No acute compression fractures are seen. Multilevel advanced degenerative disc disease is seen with calcification of L4-5 disc. Mild central canal stenosis is seen at T12- L1, L2-3, L3-4, and L4-5, unchanged. Multilevel advanced facet osteoarthritis is seen. Moderate neural foraminal stenosis is seen at bilateral L3-4 and L4-5. There is atherosclerotic calcification of the abdominal aorta and its branch vessels. Previously seen left psoas abscess extending between L1 and L3 levels is unchanged in size. Degenerative changes in the bilateral sacroiliac joints are seen. Procedure Note Kj Moss MD - 09/07/2017 EXAMINATION: 1. CT of the thoracic spine without contrast 2. CT of the lumbar spine without contrast HISTORY: comparison to prior CT spines regarding follow up fordiscitis/osteomyelitis TECHNIQUE: CT of the cervical spine were performed without contrastaccording to standard protocol. Reformatted axial, sagittal, and coronalimages of the thoracic and lumbar spine were obtained by the technologistfrom a concurrently performed body CT and sent to the workstation for review. FINDINGS: Comparison is made with a CT spine lumbar and thoracic from07/28/2017. Thoracic spine: The endplate erosions at the level T6-7 representing discitis andosteomyelitis (as per prior CT spine from 07/28/2017 and prior MR spinefrom 07/26/2017) has increased in interval. This is associated with softtissue swelling in surrounding of the prevertebral tissues adjacent to this level. There are 12 rib-bearingthoracic vertebrae and 5 nonrib-bearing lumbar vertebrae. The alignmentremains normal. Vertebral bodies are normal in height without evidence ofacute fracture.Diffuse idiopathic skeletal hyperostosis is again seen in T5-T12. levels There is a centralposterior disc protrusion at C5-6. Moderate to advanced disc disease isseen at the levels T6-T10. No central canal stenosis is seen. There arevarying degrees of mild facet osteoarthritis. No neural foraminal stenosis is seen. Large right andmoderate left pleural effusions are again seen with associated leftgreater than right pulmonary consolidation representing pneumonia.Leftchest tube is also seen. Lumbar spine: There is an interval intervertebral disc spacer placement at level L1-2.There is grade 1 retrolisthesis of L2 on 3 and anterolisthesis of L4 andL5, unchanged. The destruction of the inferior endplate of L1 isunchanged. No acute compression fractures are seen. Multilevel advanced degenerative disc disease is seen withcalcification of L4-5 disc. Mild central canal stenosis is seen at T12-L1, L2-3, L3-4, and L4-5, unchanged. Multilevel advanced facetosteoarthritis is seen. Moderate neural foraminal stenosis is seen at bilateral L3-4 and L4-5. There is atheroscleroticcalcification of the abdominal aorta and its branch vessels. Previouslyseen left psoas abscess extending between L1 and L3 levels is unchanged insize. Degenerative changes in the bilateral sacroiliac joints are seen. IMPRESSION IMPRESSION: 1. Increase in the endplate erosion at level T6-7 representing increase inthe discitis/osteophytosis at this level. Unchanged destruction of lowerendplate of L1 similar to prior. 2. Stable left psoas abscess. 3. Bilateral pleural effusions right greater than left, and bilateral leftgreater than right upper lobe consolidations representing pneumonia,grossly unchanged. This report was approved by [facility] on 08/10/2017 11:[address] KJ Stringer have personally reviewed and interpreted thisexamination/study. This report was electronically signed by KJ MENDEZ on 08/10/201712:17 PM . Adam Madden MD CT ORDERABLES * CT THORACIC SPINE WO CONTRAST (08/09/2017 6:30 PM LEAD SYSTEMS DEVELOPER) Only the most recent of2 resultswithin the time period is included. Anatomical Region Laterality Modality Spine Other Impressions 08/10/2017 12:17 PM LEAD SYSTEMS DEVELOPER IMPRESSION: 1. Increase in the endplate erosion at level T6-7 representing increase in the discitis/osteophytosis at this level. Unchanged destruction of lower endplate of L1 similar to prior. 2. Stable left psoas abscess. 3. Bilateral pleural effusions right greater than left, and bilateral left greater than right upper lobe consolidations representing pneumonia, grossly unchanged. This report was approved ??by Omi Silverio ?? on 08/10/2017 11:[address] KJ Stringer have personally reviewed and interpreted this examination/study. This report was electronically signed by KJ MENDEZ ??on 08/10/2017 12:17 PM . Narrative 08/10/2017 12:17 PM LEAD SYSTEMS DEVELOPER EXAMINATION: 1. CT of the thoracic spine without contrast 2. CT of the lumbar spine without contrast HISTORY: comparison to prior CT spines regarding follow up for discitis/osteomyelitis TECHNIQUE: CT of the cervical spine were performed without contrast according to standard protocol. Reformatted axial, sagittal, and coronal images of the thoracic and lumbar spine were obtained by the technologist from a concurrently performed body CT and sent to the workstation for review. FINDINGS: Comparison is made with a CT spine lumbar and thoracic from 07/28/2017. Thoracic spine: The endplate erosions at the level T6-7 representing discitis and osteomyelitis (as per prior CT spine from 07/28/2017 and prior MR spine from 07/26/2017) has increased in interval. This is associated with soft tissue swelling in surrounding of the prevertebral tissues adjacent to this level. There are 12 rib-bearing thoracic vertebrae and 5 nonrib-bearing lumbar vertebrae. The alignment remains normal. Vertebral bodies are normal in height without evidence of acute fracture.Diffuse idiopathic skeletal hyperostosis is again seen in T5-T12. levels There is a central posterior disc protrusion at C5-6. Moderate to advanced disc disease is seen at the levels T6-T10. No central canal stenosis is seen. There are varying degrees of mild facet osteoarthritis. No neural foraminal stenosis is seen. Large right and moderate left pleural effusions are again seen with associated left greater than right pulmonary consolidation representing pneumonia.Left chest tube is also seen. Lumbar spine: There is an interval intervertebral disc spacer placement at level L1-2. There is grade 1 retrolisthesis of L2 on 3 and anterolisthesis of L4 and L5, unchanged. The destruction of the inferior endplate of L1 is unchanged. No acute compression fractures are seen. Multilevel advanced degenerative disc disease is seen with calcification of L4-5 disc. Mild central canal stenosis is seen at T12- L1, L2-3, L3-4, and L4-5, unchanged. Multilevel advanced facet osteoarthritis is seen. Moderate neural foraminal stenosis is seen at bilateral L3-4 and L4-5. There is atherosclerotic calcification of the abdominal aorta and its branch vessels. Previously seen left psoas abscess extending between L1 and L3 levels is unchanged in size. Degenerative changes in the bilateral sacroiliac joints are seen. Procedure Note Kj Moss MD - 09/07/2017 EXAMINATION: 1. CT of the thoracic spine without contrast 2. CT of the lumbar spine without contrast HISTORY: comparison to prior CT spines regarding follow up fordiscitis/osteomyelitis TECHNIQUE: CT of the cervical spine were performed without contrastaccording to standard protocol. Reformatted axial, sagittal, and coronalimages of the thoracic and lumbar spine were obtained by the technologistfrom a concurrently performed body CT and sent to the workstation for review. FINDINGS: Comparison is made with a CT spine lumbar and thoracic from07/28/2017. Thoracic spine: The endplate erosions at the level T6-7 representing discitis andosteomyelitis (as per prior CT spine from 07/28/2017 and prior MR spinefrom 07/26/2017) has increased in interval. This is associated with softtissue swelling in surrounding of the prevertebral tissues adjacent to this level. There are 12 rib-bearingthoracic vertebrae and 5 nonrib-bearing lumbar vertebrae. The alignmentremains normal. Vertebral bodies are normal in height without evidence ofacute fracture.Diffuse idiopathic skeletal hyperostosis is again seen in T5-T12. levels There is a centralposterior disc protrusion at C5-6. Moderate to advanced disc disease isseen at the levels T6-T10. No central canal stenosis is seen. There arevarying degrees of mild facet osteoarthritis. No neural foraminal stenosis is seen. Large right andmoderate left pleural effusions are again seen with associated leftgreater than right pulmonary consolidation representing pneumonia.Leftchest tube is also seen. Lumbar spine: There is an interval intervertebral disc spacer placement at level L1-2.There is grade 1 retrolisthesis of L2 on 3 and anterolisthesis of L4 andL5, unchanged. The destruction of the inferior endplate of L1 isunchanged. No acute compression fractures are seen. Multilevel advanced degenerative disc disease is seen withcalcification of L4-5 disc. Mild central canal stenosis is seen at T12-L1, L2-3, L3-4, and L4-5, unchanged. Multilevel advanced facetosteoarthritis is seen. Moderate neural foraminal stenosis is seen at bilateral L3-4 and L4-5. There is atheroscleroticcalcification of the abdominal aorta and its branch vessels. Previouslyseen left psoas abscess extending between L1 and L3 levels is unchanged insize. Degenerative changes in the bilateral sacroiliac joints are seen. IMPRESSION IMPRESSION: 1. Increase in the endplate erosion at level T6-7 representing increase inthe discitis/osteophytosis at this level. Unchanged destruction of lowerendplate of L1 similar to prior. 2. Stable left psoas abscess. 3. Bilateral pleural effusions right greater than left, and bilateral leftgreater than right upper lobe consolidations representing pneumonia,grossly unchanged. This report was approved by Braga Jean Claude on 08/10/2017 11:57 AM . IDr. KJ have personally reviewed and interpreted thisexamination/study. This report was electronically signed by KJ MENDEZ on 08/10/201712:17 PM . Adam Madden MD CT ORDERABLES * CLOSTRIDIUM DIFFICILE GDH AG + TOXIN A+B (08/09/2017 5:01 PM LEAD SYSTEMS DEVELOPER) C difficile Antigen Negative Negative [facility] C difficile Toxin Negative Negative [facility] Stool specimen (specimen) STOOL SPECIMEN / Unknown 08/09/2017 5:01 PM LEAD SYSTEMS DEVELOPER 08/09/2017 5:03 PM LEAD SYSTEMS DEVELOPER Narrative [facility] - 08/10/2017 9:44 AM LEAD SYSTEMS DEVELOPER Specimen Type->Stool Resulting Lab: ?? [facility] [address] [place] [address] PH: [phone] Adam Madden MD LAB - MICROBIOLOGY O RDSP [facility] [address] [place], [place] [id number] [place] [address] * VIRAL CULTURE MISC (08/04/2017 2:22 PM LEAD SYSTEMS DEVELOPER) Only the most recent of2 resultswithin the time period is included. Viral Culture General No virus isolated. [facility] ([facility]) Bronchoalveolar Lavage BRONCHIOLOALVEOLAR LAVAGE / Unknown 08/04/2017 2:22 PM LEAD SYSTEMS DEVELOPER 08/04/2017 4:05 PM LEAD SYSTEMS DEVELOPER Narrative [facility] ([facility]) - 08/17/2017 7:14 AM CDT lingula Specimen Type->Bronchoalveolar Lavage Performed at: ??01 - [facility] [address] ??[id number] Outside Sales Advertising Executive: Leroy Sanchez MD, Phone: ??[phone] Robe Mohamud MD LAB - MICROBIOLOGY O RDSP [facility] ([facility]) [address] [place] [address] * CULTURE BRONCHOALVEOLAR LAVAGE QNT+GRAM STAIN (08/04/2017 2:22 PM LEAD SYSTEMS DEVELOPER) Culture Quant-BAL Normal Respiratory Robert [facility] Culture Quant-BAL 50,000-100,000 CFU/mL [facility] Gram Stain heavy White Blood Cells [facility] Gram Stain Rare Gram Positive cocci [facility] Gram Stain Moderate Yeast [facility] Bronchoalveolar Lavage BRONCHIOLOALVEOLAR LAVAGE / Unknown 08/04/2017 2:22 PM LEAD SYSTEMS DEVELOPER 08/04/2017 3:04 PM LEAD SYSTEMS DEVELOPER Narrative [facility] - 08/06/2017 11:39 AM LEAD SYSTEMS DEVELOPER lingula Specimen Type->Bronchoalveolar Lavage lingula Resulting Lab: ?? [facility] [address] [place] [address] PH: [phone] Robe Mohamud MD LAB - MICROBIOLOGY O RDERABLES [facility] [address] [place] [address] * CULTURE AFB+SMEAR (08/04/2017 2:22 PM LEAD SYSTEMS DEVELOPER) Only the most recent of5 resultswithin the time period is included. Culture Acid Fast Bacilli No growth of Acid Fast bacilli [facility] AFB Smear No acid fast bacilli seen [facility] Bronchoalveolar Lavage BRONCHIOLOALVEOLAR LAVAGE / Unknown 08/04/2017 2:22 PM LEAD SYSTEMS DEVELOPER 08/04/2017 3:04 PM LEAD SYSTEMS DEVELOPER Narrative [facility] - 09/12/2017 11:12 AM CDT lingula Specimen Type->Bronchoalveolar Lavage Resulting Lab: ?? [facility] [address] [place] [address] PH: [phone] Resulting Lab: ?? [facility] [address] [place] [address] PH: [phone] Resulting Lab: ?? [facility] [address] [place] [address] PH: [phone] Resulting Lab: ?? [facility] [address] [place] [address] PH: [phone] Resulting Lab: ?? [facility] [address] [place] [address] PH: [phone] Resulting Lab: ?? [facility] [address] [place] [address] PH: [phone] Resulting Lab: ?? [facility] [address] [place] [address] PH: [phone] Resulting Lab: ?? [facility] [address] [place] [address] PH: [phone] Robe Mohamud MD LAB - MICROBIOLOGY O RIO Performing Organization Address [facility]/ZIP Co de Phone Number [address] [phone] * (ABNORMAL) CULTURE FUNGUS OTHER+FUNGUS SMEAR (08/04/2017 2:17 PM LEAD SYSTEMS DEVELOPER) Only the most recent of5 resultswithin the time period is included. Culture Fungus-Other ZAIN TROPICALIS( A) [facility] Comment:Light to Moderate Gr owth Zain Tropicalis Fungus Smear Rare Yeast [facility] Bronchial Washings SPECIMEN FROM LUNG OBTAINED BY BRONCHIAL WASHING PROCEDURE / Unknown 08/04/2017 2:17 PM LEAD SYSTEMS DEVELOPER 08/04/2017 3:04 PM LEAD SYSTEMS DEVELOPER Narrative [facility] - 08/28/2017 9:20 AM CDT wash Specimen Type->Bronchial Washings Resulting Lab: ?? [facility] MICROBIOLOGY [address] [place] [address] PH: [phone] Resulting Lab: ?? [facility] MICROBIOLOGY [address] [place] [address] PH: [phone] Resulting Lab: ?? [facility] MICROBIOLOGY [address] [place] [address] PH: [phone] Resulting Lab: ?? [facility] MICROBIOLOGY [address] [place] [address] PH: [phone] Resulting Lab: ?? [facility] MICROBIOLOGY [address] [place] [address] PH: [phone] Resulting Lab: ?? [facility] MICROBIOLOGY [address] [place] [address] PH: [phone] Robe Mohamud MD LAB - MICROBIOLOGY O RIO Performing Organization Address [facility]/ZIP Co de Phone Number [address] [phone] * XR CHEST 2VW INSPIR EXPIRATION (08/02/2017 6:32 PM LEAD SYSTEMS DEVELOPER) Only the most recent of4 resultswithin the time period is included. Anatomical Region Laterality Modality Chest Other Impressions 08/03/2017 4:02 PM LEAD SYSTEMS DEVELOPER IMPRESSION: Enteric tube follows the expected esophageal course below the diaphragm with the tip projecting over the expected position of the stomach. Left thoracostomy tube is unchanged in position. ??The right pleural catheter is unchanged in position. There is extensive opacification of the left mid to lower hemithorax compatible with a combination of atelectasis, pulmonary consolidation, and/or pleural fluid. There is relative lucency in the left upper hemithorax likely representing a residual pneumothorax. On the right, there is a small pleural effusion the costophrenic angle, there are interstitial opacities in the lung which may represent vascular congestion, and no right pneumothorax. The cardiac silhouette is partly obscured. Preliminary results were discussed with Dr. Son by Dr. Greene on 08/02/2017 at 7:08 PM. This report was dictated by John Greene M.D. (residential sales rep). I, Dr. SILAS NGUYỄN MD have personally reviewed and interpreted this examination/study. This report was electronically signed by SILAS NGUYỄN MD ??on 08/03/2017 4:02 PM . Narrative 08/03/2017 4:02 PM LEAD SYSTEMS DEVELOPER EXAMINATION: Portable AP radiograph of the chest. HISTORY: right chest tube placement follow up COMPARISON: Comparison is made with chest radiograph from 08/02/2017 at 4:06 AM. FINDINGS/ Procedure Note Silas Nguyễn MD - 09/07/2017 EXAMINATION: Portable AP radiograph of the chest. HISTORY: right chest tube placement follow up COMPARISON: Comparison is made with chest radiograph from 08/02/2017 at4:06 AM. FINDINGS/ IMPRESSION IMPRESSION: Enteric tube follows the expected esophageal course below the diaphragmwith the tip projecting over the expected position of the stomach. Leftthoracostomy tube is unchanged in position. The right pleural catheter isunchanged in position. There is extensive opacification of the left mid to lower hemithoraxcompatible with a combination of atelectasis, pulmonary consolidation,and/or pleural fluid. There is relative lucency in the left upperhemithorax likely representing a residual pneumothorax. On the right, there is a small pleural effusion thecostophrenic angle, there are interstitial opacities in the lung which mayrepresent vascular congestion, and no right pneumothorax. The cardiacsilhouette is partly obscured. Preliminary results were discussed with Dr. Son by Dr. Greene on 08/02/2017at 7:08 PM. This report was dictated by John Greene M.D. (residential sales rep). I, Dr. SILAS NGUYỄN MD have personally reviewed and interpreted thisexamination/study. This report was electronically signed by SILAS NGUYỄN MD on 08/03/20174:02 PM . Ulices Hodgson MD DIAGNOSTIC IMAGING O RDERABLES * IR PLEURAL DRAIN (08/02/2017 3:26 PM LEAD SYSTEMS DEVELOPER) Anatomical Region Laterality Modality Other Impressions 08/02/2017 5:57 PM LEAD SYSTEMS DEVELOPER Impression: Successful ultrasound-guided placement of a 10 Chinese pigtail drainage catheter in the right pleural space, as described above. Approximately 140 mL of serous yellow-colored fluid were drained during this procedure. Follow up: The catheter is open for external drainage into waterseal device. Catheter removal can be performed depending on the patient's clinical status and output from the catheter. ? Dr Hodgson was present and performed the procedure. I, Dr. ULICES HODGSON have personally reviewed and interpreted this examination/study. This report was electronically signed by ULICES HODGSON ??on 08/02/2017 5:57 PM . Narrative 08/02/2017 5:57 PM LEAD SYSTEMS DEVELOPER History: 66-year-old male with pneumonia and right pleural effusion, presents for image guided placement of a right pleural catheter Operators: 1. ??Dr. Hodgson, Attending Physician 2. ??Dr. Haney, IR resident Anesthesia: Local anesthesia - 10 mL of 1% lidocaine Procedure: 1. ??Limited ultrasound evaluation of the right chest. 2. ??Ultrasound-guided placement of 10 Chinese ReSolve pigtail drainage catheter in the right pleural space. Procedure in detail: The procedure, risks, and possible complications were explained to the patient in detail, and informed consent was obtained. The patient was placed in a left lateral decubitus position on the ultrasound table and a limited multiplanar ultrasound examination of the chest was performed, demonstrating a moderate size right pleural effusion. The marked site and skin around the region of interest was prepped and draped in sterile fashion. Local anesthesia was provided with % Lidocaine. A 6 Chinese One- Step coaxial needle system was advanced in stages under real time ultrasound guidance. Upon aspiration of fluid, the outer-sheath was advanced within the pleural space. A 0.035 inch guidewire was looped within the pleural space and following series of dilatation/exchanges, a 10 Chinese ReSolve pigtail drainage catheter was advanced. The initial aspirate was clear yellow colored fluid, and approximately 100 mL of fluid were drained. An appropriate amount of aspirate was sent for necessary laboratory work up. Final imaging showed the catheter in satisfactory position. The patient tolerated the procedure well and was transferred to the holding area in stable condition. There were no immediate complications associated with the procedure. Procedure Note Provider, MD Claire - 09/07/2017 History: 66-year-old male with pneumonia and right pleural effusion,presents for image guided placement of a right pleural catheter Operators: 1. Dr. Hodgson, Attending Physician 2. Dr. Haney, IR resident Anesthesia: Local anesthesia - 10 mL of 1% lidocaine Procedure: 1. Limited ultrasound evaluation of the right chest. 2. Ultrasound-guided placement of 10 Chinese ReSolve pigtail drainagecatheter in the right pleural space. Procedure in detail: The procedure, risks, and possible complications were explained to thepatient in detail, and informed consent was obtained. The patient wasplaced in a left lateral decubitus position on the ultrasound table and alimited multiplanar ultrasound examination of the chest was performed, demonstrating a moderate sizeright pleural effusion. The marked site and skin around the region of interest was prepped anddraped in sterile fashion. Local anesthesia was provided with % Lidocaine.A 6 Chinese One- Step coaxial needle system was advanced in stages underreal time ultrasound guidance. Upon aspiration of fluid, the outer-sheath was advanced within the pleuralspace. A 0.035 inch guidewire was looped within the pleural space andfollowing series of dilatation/exchanges, a 10 Chinese ReSolve pigtaildrainage catheter was advanced. The initial aspirate was clear yellow colored fluid, and approximately 100 mL of fluidwere drained. An appropriate amount of aspirate was sent for necessarylaboratory work up. Final imaging showed the catheter in satisfactoryposition. The patient tolerated the procedure well and [facility]. There were no immediate complicationsassociated with the procedure. IMPRESSION Impression: Successful ultrasound-guided placement of a 10 Chinese pigtaildrainage catheter in the right pleural space, as described above.Approximately 140 mL of serous yellow-colored fluid were drained duringthis procedure. Follow up: The catheter is open for external drainage into watersealdevice. Catheter removal can be performed depending on the patient'sclinical status and output from the catheter. ? Dr Hodgson was present and performed the procedure. I, Dr. ULICES HODGSON have personally reviewed and interpreted thisexamination/study. This report was electronically signed by ULICES HODGSON on 08/02/2017 5:57PM . Angela Corona MD IR ORDERABLES * FL ADAM SURGERY (07/29/2017 12:00 PM LEAD SYSTEMS DEVELOPER) Anatomical Region Laterality Modality Other Narrative 07/29/2017 1:02 PM LEAD SYSTEMS DEVELOPER Fluoroscopy was used for this exam. Please see the Operative report. Procedure Note Provider, MD Claire - 09/07/2017 Fluoroscopy was used for this exam. Please see the Operative report. Ronald Murray MD FLUOROSCOPY ORDERABL ES * LACTIC ACID WHOLE BLOOD (07/29/2017 11:30 AM LEAD SYSTEMS DEVELOPER) Only the most recent of2 resultswithin the time period is included. Lactic Acid Whole Blood 1.1 0.5 - 3.4 mmol/L [facility] Blood specimen (specimen) BLOOD SPECIMEN / Unknown 07/29/2017 11:30 AM LEAD SYSTEMS DEVELOPER 07/29/2017 11:35 AM LEAD SYSTEMS DEVELOPER Epi Collier MD LAB - CHEMISTRY [facility] [address] [phone] * CHLORIDE WHOLE BLOOD (07/29/2017 11:30 AM LEAD SYSTEMS DEVELOPER) Only the most recent of2 resultswithin the time period is included. Chloride Whole Blood 109 101 - 111 mmol/L [facility] Blood specimen (specimen) BLOOD SPECIMEN / Unknown 07/29/2017 11:30 AM LEAD SYSTEMS DEVELOPER 07/29/2017 11:35 AM LEAD SYSTEMS DEVELOPER Epi Collier MD LAB - CHEMISTRY [facility] [address] [phone] * (ABNORMAL) CALCIUM IONIZED WHOLE BLOOD (07/29/2017 11:30 AM LEAD SYSTEMS DEVELOPER) Only the most recent of3 resultswithin the time period is included. Ionized Calcium Whole Blood 1.36 mmol/L [facility] Adjusted Ionized Calcium 1.38(H) 1.19 - 1.34 mmol/L [facility] pH Whole Blood 7.43 7.35 - 7.45 [facility] Blood specimen (specimen) BLOOD SPECIMEN / Unknown 07/29/2017 11:30 AM LEAD SYSTEMS DEVELOPER 07/29/2017 11:35 AM LEAD SYSTEMS DEVELOPER Epi Collier MD LAB - CHEMISTRY [facility] Performing Organization Address [facility]/ZIP Co de Phone Number [address] [phone] * (ABNORMAL) POTASSIUM WHOLE BLD (07/29/2017 11:30 AM LEAD SYSTEMS DEVELOPER) Only the most recent of2 resultswithin the time period is included. Potassium Whole Blood 3.3(L) 3.5 - 5.5 mmol/L [facility] Blood specimen (specimen) BLOOD SPECIMEN / Unknown 07/29/2017 11:30 AM LEAD SYSTEMS DEVELOPER 07/29/2017 11:35 AM LEAD SYSTEMS DEVELOPER Epi Collier MD LAB - CHEMISTRY [facility] [address] [phone] * SODIUM WHOLE BLOOD (07/29/2017 11:30 AM LEAD SYSTEMS DEVELOPER) Only the most recent of2 resultswithin the time period is included. Sodium Whole Blood 140 135 - 145 mmol/L [facility] Blood specimen (specimen) BLOOD SPECIMEN / Unknown 07/29/2017 11:30 AM LEAD SYSTEMS DEVELOPER 07/29/2017 11:35 AM LEAD SYSTEMS DEVELOPER Epi Collier MD LAB - CHEMISTRY [facility] Performing Organization Address [facility] [place] [address], [facility] [phone] * GLUCOSE WHOLE BLOOD (07/29/2017 11:30 AM LEAD SYSTEMS DEVELOPER) Only the most recent of2 resultswithin the time period is included. Glucose Whole Blood 90 70 - 110 mg/dL [facility] Blood specimen (specimen) BLOOD SPECIMEN / Unknown 07/29/2017 11:30 AM LEAD SYSTEMS DEVELOPER 07/29/2017 11:35 AM LEAD SYSTEMS DEVELOPER Epi Collier MD LAB - CHEMISTRY [facility] Performing Organization Address [facility] [place] [address], [facility] [phone] * (ABNORMAL) METHICILLIN RAPID TEST (07/29/2017 3:45 AM LEAD SYSTEMS DEVELOPER) Only the most recent of4 resultswithin the time period is included. Pathologist [facility] Methicillin Rapid Test Positive( A) Negative [facility] Blood specimen (specimen) (Venous, Peripheral) 07/29/2017 3:45 AM LEAD SYSTEMS DEVELOPER 07/29/2017 4:18 AM LEAD SYSTEMS DEVELOPER Narrative [facility] - 08/01/2017 3:27 PM LEAD SYSTEMS DEVELOPER Methicillin Resistant Staphylococcus aureus (MRSA) by penicillin binding protein immunoassay. Conventional susceptibility testing to follow. Angela Corona MD LAB - MICROBIOLOGY O RDERABLES Performing Organization Address [facility] [place] [address], [facility] [phone] * AMYLASE BODY FLUID ([facility] ONLY) (07/28/2017 7:26 PM LEAD SYSTEMS DEVELOPER) Amylase Fluid 9 Not Established For Fluids Units/L [facility] Comment:The reference range and other method performance specifications have not been established for this fluid. The test result must be integrated into the clinical context for interpretation. Fluid specimen (specimen) PLEURAL FLUID / Unknown 07/28/2017 7:26 PM LEAD SYSTEMS DEVELOPER 07/28/2017 7:26 PM LEAD SYSTEMS DEVELOPER Angela Corona MD LAB - BODY FLUID ORD ERABLES [address] [phone] * CYTOLOGY NON-DIGITAL OPERATIONS ANALYST PANEL (STL) (07/28/2017 7:26 PM LEAD SYSTEMS DEVELOPER) Pathologist [facility] Cytology Non-Ice Cream Vendor Accession No: [id number] Reference: [id number] Specimen: PLEURAL FLUID Clinical History: Pleural Fluid Gross Description: 1000 cc orange fluid Preparation Method: 1pap, 1 DQ, 1 cs/pap, 1 Cell Block SPECIMEN ADEQUACY: Adequate for evaluation FINAL DIAGNOSIS: Pleural fluid, cytology: ?- ??Negative for malignancy MICROSCOPIC DESCRIPTION: Review of 1 pap and 1 Diff-Quik slides and 1 cytospin pap slide reveals a hypercellular specimen consisting of reactive mesothelial cells in small clusters, inflammatory cells and red blood cells. The cell block shows many reactive mesothelial cells and histiocytes admixed with blood and fibrin. There is no evidence of malignancy. ES/CO COMMENT(S): This case has been personally reviewed and interpreted by the attending (teaching) pathologist. Initial Evaluation performed by Gabbie FAJARDO (ASCP). Electronically signed 07/29/2017 Final Diagnosis performed by Sathya Oakley MD. Electronically signed 08/01/2017 [facility] Other (qualifier value) 07/28/2017 7:26 PM LEAD SYSTEMS DEVELOPER 07/28/2017 7:26 PM LEAD SYSTEMS DEVELOPER Narrative [facility] - 08/01/2017 11:37 AM LEAD SYSTEMS DEVELOPER Diagnosis->Pleural effusion Specimen A->Pleural Fluid Pleural Fluid Angela Corona MD LAB - PATHOLOGY/CYTO LOGY ORDERABLES Performing Organization Address [facility] Co de Phone Number [facility] [address] [facility] [place] [address], [facility] [phone] * CHOLESTEROL FLUID (07/28/2017 7:26 PM LEAD SYSTEMS DEVELOPER) Total Cholesterol Body Fluid 21 See Comment mg/dL [facility] Comment:The reference range and other method performance specifications have not been established for this fluid. The test result must be integrated into the clinical context for interpretation. Pleural fluid specimen (specimen) PLEURAL FLUID / Unknown 07/28/2017 7:26 PM LEAD SYSTEMS DEVELOPER 07/28/2017 7:26 PM LEAD SYSTEMS DEVELOPER Angela Corona MD LAB - BODY FLUID ORD ERABLES Performing Organization Address [facility] Co de Phone Number [address] [phone] * TRIGLYCERIDES FLUID (07/28/2017 7:26 PM LEAD SYSTEMS DEVELOPER) Triglycerides Fluid 12 Not Established For Fluids mg/dL [facility] Comment:The reference range and other method performance specifications have not been established for this fluid. The test result must be integrated into the clinical context for interpretation. Pleural fluid specimen (specimen) PLEURAL FLUID / Unknown 07/28/2017 7:26 PM LEAD SYSTEMS DEVELOPER 07/28/2017 7:26 PM LEAD SYSTEMS DEVELOPER Angela Corona MD LAB - BODY FLUID ORD ERABLES Performing Organization Address [facility] [place] [address], [facility] [phone] * ALBUMIN FLUID (07/28/2017 7:26 PM LEAD SYSTEMS DEVELOPER) Albumin Fluid 0.8 Not Established For Fluids g/dL [facility] Comment:The reference range and other method performance specifications have not been established for this fluid. The test result must be integrated into the clinical context for interpretation. Fluid specimen (specimen) PLEURAL FLUID / Unknown 07/28/2017 7:26 PM LEAD SYSTEMS DEVELOPER 07/28/2017 7:26 PM LEAD SYSTEMS DEVELOPER Angela Corona MD LAB - BODY FLUID ORD ERABLES [address] [phone] * CT ANGIO BRAIN AND NECK (07/28/2017 7:03 AM LEAD SYSTEMS DEVELOPER) Anatomical Region Laterality Modality Head Other Impressions 07/28/2017 1:35 PM LEAD SYSTEMS DEVELOPER IMPRESSION: 1. Slightly increased intra-axial hemorrhage in the right frontal lobe with surrounding vasogenic edema and unchanged intra-axial hemorrhage in the right external capsule with increased surrounding neurogenic edema. 2. No aneurysm, large arterial occlusions or significant stenoses identified in the head or neck. 3. Severe degenerative change in the cervical spine with focal disc extrusion at the level of C5-6 and moderate spinal canal stenosis at this level. 4. Moderate right and small left pleural effusions. This report was approved ??by Rohan Hopkins Dr ?? on 07/28/2017 8:19 AM . IDr. KJ have personally reviewed and interpreted this examination/study. This report was electronically signed by KJ MENDEZ ??on 07/28/2017 1:35 PM . Narrative 07/28/2017 1:35 PM LEAD SYSTEMS DEVELOPER EXAMINATION: 1. Computed tomographic (CT) angiography of the head without and with contrast 2. CT angiography of the neck with contrast HISTORY: L1-2 epidural abscess, evaluation for septic aneurysmal bleeding TECHNIQUE: CT of the head was performed without contrast according to standard protocol. Then CT angiography of the head and neck was obtained after the uneventful administration of 75 mL Omnipaque 350 intravenous contrast. Three dimensional postprocessing was performed by the technologist and sent to the workstation for review. FINDINGS: Comparison is made with a study from earlier today. Non-angiographic findings: Intra-axial hemorrhage have slightly increased in the right frontal lobe measuring 1.3 cm AP (18 image 24) by 1.0 cm TV (series 20 image 31) with increased surrounding vasogenic edema. Intra-axial hemorrhage in the right external capsule is grossly unchanged in size with increased surrounding vasogenic edema. There is mild cerebral volume loss with associated ex vacuo ventricular dilatation. Cavum septum pellucidum is seen. The basilar cisterns are patent. No mass effect or midline shift is seen. The turner-white matter differentiation otherwise appears normal. Periventricular white matter hypoattenuation is nonspecific, but can be seen in the setting of chronic small vessel ischemic disease. Other than mild paranasal sinus disease, the visualized portions of the orbits, paranasal sinuses, and mastoids appear normal. No acute fracture is identified. An enteric tube is again seen in the right nasal cavity. Levoscoliosis of the cervical spine with severe degenerative changes are seen. Calcifications with focal disks disc extrusion is seen in the posterior aspect of the C5-6 with moderate spinal canal stenosis. Thyroid gland appears normal. Moderate right and small left pleural effusions are noted. Coronary artery calcifications are seen. Calcified mediastinal lymph nodes are seen. An enteric tube is seen in the esophagus. 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 There is a common origin of the innominate and left common carotid arteries from the aortic arch. There is atherosclerotic calcification of the innominate and subclavian arteries. There is atherosclerotic disease of the right carotid bifurcation and origin of the right internal carotid artery with less than 50 percent focal stenosis. The right common and internal carotid arteries otherwise appear normal. There is atherosclerotic disease of the left carotid bifurcation and origin of the left internal carotid artery with less than 50 percent focal stenosis. The left common and internal carotid arteries otherwise appear normal. There is atherosclerotic disease involving the cervical vertebral arteries without significant focal stenosis. There is atherosclerotic disease involving the distal internal carotid arteries without significant focal stenosis. The anterior and middle cerebral arteries appear normal. The distal vertebral arteries appear normal. The basilar artery and posterior cerebral arteries appear normal. No aneurysms, vascular occlusions, or intracranial stenoses are identified. Procedure Note Josué Carl MD - 09/07/2017 EXAMINATION: 1. Computed tomographic (CT) angiography of the head without and withcontrast 2. CT angiography of the neck with contrast HISTORY: L1-2 epidural abscess, evaluation for septic aneurysmalbleeding TECHNIQUE: CT of the head was performed without contrast according tostandard protocol. Then CT angiography of the head and neck was obtainedafter the uneventful administration of 75 mL Omnipaque 350 intravenouscontrast. Three dimensional postprocessing was performed by the technologist and sent to theworkstation for review. FINDINGS: Comparison is made with a study from earlier today. Non-angiographic findings: Intra-axial hemorrhage have slightly increased in the right frontal lobemeasuring 1.3 cm AP (18 image 24) by 1.0 cm TV (series 20 image 31) withincreased surrounding vasogenic edema. Intra-axial hemorrhage in the rightexternal capsule is grossly unchanged in size with increased surrounding vasogenic edema. There ismild cerebral volume loss with associated ex vacuo ventricular dilatation.Cavum septum pellucidum is seen. The basilar cisterns are patent. No masseffect or midline shift is seen. The turner-white matter differentiation otherwise appears normal.Periventricular white matter hypoattenuation is nonspecific, but can beseen in the setting of chronic small vessel ischemic disease. Other thanmild paranasal sinus disease, the visualized portions of the orbits, paranasal sinuses, and mastoids appear normal. Noacute fracture is identified. An enteric tube is again seen in the rightnasal cavity. Levoscoliosis of the cervical spine with severe degenerative changes areseen. Calcifications with focal disks disc extrusion is seen in theposterior aspect of the C5-6 with moderate spinal canal stenosis. Thyroidgland appears normal. Moderate right and small left pleural effusions are noted. Coronary artery calcificationsare seen. Calcified mediastinal lymph nodes are seen. An enteric tube isseen in the esophagus. 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 There is a commonorigin of the innominate and left common carotid arteries from the aorticarch. There is atherosclerotic calcification of the innominate andsubclavian arteries. There is atherosclerotic disease of the right carotid bifurcation and origin of theright internal carotid artery with less than 50 percent focal stenosis.The right common and internal carotid arteries otherwise appear normal.There is atherosclerotic disease of the left carotid bifurcation and origin of the left internal carotidartery with less than 50 percent focal stenosis. The left common andinternal carotid arteries otherwise appear normal. There isatherosclerotic disease involving the cervical vertebral arteries without significant focal stenosis. There is atherosclerotic disease involving the distal internal carotidarteries without significant focal stenosis. The anterior and middlecerebral arteries appear normal. The distal vertebral arteries appearnormal. The basilar artery and posterior cerebral arteries appear normal. No aneurysms, vascular occlusions, orintracranial stenoses are identified. IMPRESSION IMPRESSION: 1. Slightly increased intra-axial hemorrhage in the right frontal lobewith surrounding vasogenic edema and unchanged intra-axial hemorrhage inthe right external capsule with increased surrounding neurogenic edema. 2. No aneurysm, large arterial occlusions or significant stenosesidentified in the head or neck. 3. Severe degenerative change in the cervical spine with focal discextrusion at the level of C5-6 and moderate spinal canal stenosis at thislevel. 4. Moderate right and small left pleural effusions. This report was approved by Rohan Hopkins Dr on 07/28/2017 8:[address] KJ Stringer have personally reviewed and interpreted thisexamination/study. This report was electronically signed by KJ MENDEZ on 07/28/20171:35 PM . Angela Corona MD CT ORDERABLES * ECHO FU OR LIMITED (07/28/2017 12:00 AM LEAD SYSTEMS DEVELOPER) Anatomical Region Laterality Modality Other 07/28/2017 Angela Corona MD ECHOCARDIOGRAPHY RAD IANT * (ABNORMAL) TEG PLATELET MAPPING (07/27/2017 3:00 PM LEAD SYSTEMS DEVELOPER) G-Clot Strength 12.5(H) 4.5 - 11.0 d/sc [facility] Interpretation TEG See Comment [facility] React-Time 3.7(L) 5.0 - 10.0 MIN [facility] K-Time 0.8(L) 1.0 - 3.0 MIN [facility] Angle A-BB 81.5(H) 53.0 - 72.0 Degrees [facility] MA (CK) BB 71.4(H) 50.0 - 70.0 mm [facility] LY30 10.8(H) 0.0 - 8.0 % [facility] BLOO D BANK LAB CI-Coagulation Index 4.4(H) -3.0 - 3.0 [facility] MA-ADP 79.4 Reference Range: None mm [facility] MA AA-BB 73.8 Reference Range: None mm [facility] % ADP Inhibition 0.0 Reference Range:None % [facility] % AA Inhibition 0.0 Reference Range: None % [facility] Blood specimen (specimen) BLOOD SPECIMEN / Unknown 07/27/2017 3:00 PM LEAD SYSTEMS DEVELOPER 07/27/2017 3:10 PM LEAD SYSTEMS DEVELOPER Narrative [facility] - 07/27/2017 4:29 PM LEAD SYSTEMS DEVELOPER SEE BELOW ?TEG [place] Sample Type Interpretation TEG Value ?Hemostasis State R < than 4 min: ?Enzymatic Hypercoagulability R 11-14 min: ? Low Clotting Factors R > than 14 min: ?? Very low clotting factors MA 46-54 mm: ? Low Platelet function MA 41-45 mm: ? Very low platelet function MA 40 mm or less: ??Extremely low platelet function MA > 73 mm: ?Platelet hypercoagulability R < 4 min and ?Enzymatic and platelet hypercoagulability MA > 73 mm: Angle < 45 deg: ?Low fibrinogen level LY30 at 7.5% or >, Primary Fibrinolysis CI < than 1.0: ?? LY30 at 7.5% or >, Secondary fibrinolysis CI > than 3.0: LY30 < 7.5%, ? Prothrombotic state CI > 3.0: Angela Corona MD LAB - BLOOD BANK ORD ERABLES [facility] [id number] [place] [address], [facility] * MRI LUMBAR SPINE WWO CONTRAST (07/26/2017 10:55 PM LEAD SYSTEMS DEVELOPER) Anatomical Region Laterality Modality Spine Other Impressions 07/27/2017 10:54 AM LEAD SYSTEMS DEVELOPER IMPRESSION: 1. Interval progression of discitis/osteomyelitis at L1-2 with interval development of discitis/osteomyelitis at T6-7. There is extensive abnormal epidural enhancement consistent with infection/abscess formation extending from T3 to L2-3 with more focal pockets of rim enhancement as described above leading to up to moderate central canal stenosis. 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 There is mild T2/STIR hyperintensity within the cord at T5-6 above a more focal epidural collection concerning for cord edema. Soft tissue extension of infection/phlegmon/early abscess formation is present in the posterior mediastinum from T6-7 to T10. Bilateral psoas abscesses are present as well as infection of the right L2-3 facet joint and adjacent paraspinal abscess formation. 2. Continued small left and moderate right pleural effusions. Final results were discussed with Dr. Jules by Dr. Dill at 1035 on 07/27/2017. This report was approved ??by Jean Dill M.D. ?? on 07/27/2017 10:35 AM . I, Dr. JEREMIAH MENDOZA M.D. have personally reviewed and interpreted this examination/study. This report was electronically signed by JEREMIAH MENDOZA M.D. ??on 07/27/2017 10:54 AM . Narrative 07/27/2017 10:54 AM LEAD SYSTEMS DEVELOPER EXAMINATION: Magnetic resonance imaging (MRI) of the thoracic and lumbar spine without and with contrast HISTORY: Discitis-osteomyelitis with epidural abscess, persistent bacteremia. TECHNIQUE: MRI of the thoracic and lumbar spine was performed prior to and following the uneventful administration of 10 mL Gadavist intravenous gadolinium contrast according to standard protocol. FINDINGS: Comparison is made to a CT of the chest abdomen pelvis from 07/20/2017 and an outside institution thoracic and lumbar spine MRI from 07/14/2017. Thoracic spine: The alignment is normal. Vertebral bodies are normal in height without evidence of compression fractures. There is edema and enhancement in the T6 and T7 vertebral bodies, with additional edema and enhancement of the T6-7 intervertebral disc, representing discitis-osteomyelitis. This is not clearly visualized on the prior MR study. There is a large anterior osteophyte at T6-7 with surrounding edema and enhancement measuring approximately 5.1 cm CC by 1.6 cm AP (series 27 image 10) by 5.5 cm TV (series 104 image 27), representing a posterior mediastinal phlegmon/developing abscess. Additional enhancement is seen extending inferiorly to the level of T10, likely representing extension of this phlegmon within the posterior mediastinum. There is enhancement within the central canal extending from the level of T3 throughout the thoracic spine in the epidural space circumferentially surrounding the thecal sac concerning for extensive epidural abscess formation. This is most pronounced ventrally at the level of T7 where it measures 6 mm in depth (series 104 image 33) and causes mass effect on the cord and moderate central canal stenosis, displacing it to the right. There is mild T2/STIR hyperintensity within the cord at the level of T5-6 likely representing cord edema (series 5 image 10). There is multilevel degenerative disc disease. There are varying degrees of mild facet osteoarthritis. No neural foraminal stenosis is seen. There are continued small left and moderate right pleural effusions and associated bilateral lower lobe consolidations. Lumbar spine: There is minimal L2-3 and L3-4 retrolisthesis, with grade 1 L4-5 anterolisthesis. Vertebral bodies are normal in height without evidence of compression fractures. There is edema and enhancement within the L1 and L2 vertebral bodies, with edema in the L1-2 intervertebral disc, representing discitis osteomyelitis at this level. This has progressed when compared with the prior MR study. There is circumferential epidural enhancement continuing from the thoracic spine to the level of L2-3 consistent with continuation of epidural abscess. This is most pronounced at T12-L1 where there is a rim-enhancing fluid collection in the ventral epidural space measuring 4.7 cm CC by 0.4 cm AP (series 4 image 14) by 1.5 cm TV (series 17 image 3), representing an epidural abscess. This collection causes moderate central canal stenosis at T12- L1. A more focal dorsal epidural collection is present at the L2 level measuring up to 5 mm in depth (series 17 image 18). There is enhancement of several of the nerve roots of the cauda equina consistent with arachnoiditis (series 17 image 40). There multiloculated collections in the psoas muscles with rim enhancement on the left greater than on the right consistent with abscesses. In the left psoas muscle, this collection measures 4.5 cm in AP dimension and 4.0 cm in transverse dimension (series 10 image 17). There is enhancement in the right L2-3 facet joint disease with an adjacent rim-enhancing collection/abscess measuring up to 2.4 cm in diameter (series 17 image 22 and series 14 image 17). Enhancement in the posterior paraspinal musculature is likely infectious/inflammatory. The conus medullaris terminates at the level of L1-2 and the distal spinal cord signal intensity is normal. There is advanced multilevel degenerative disc disease with up to severe central canal stenosis at L4-5. There are varying degrees of advanced facet osteoarthritis with up to severe bilateral neural foraminal stenosis, most pronounced at L2-3, L3-4, L4-5. Procedure Note Jeremiah Mendoza MD - 09/07/2017 EXAMINATION: Magnetic resonance imaging (MRI) of the thoracic and lumbarspine without and with contrast HISTORY: Discitis-osteomyelitis with epidural abscess, persistentbacteremia. TECHNIQUE: MRI of the thoracic and lumbar spine was performed prior to andfollowing the uneventful administration of 10 mL Gadavist intravenousgadolinium contrast according to standard protocol. FINDINGS: Comparison is made to a CT of the chest abdomen pelvis from07/20/2017 and an outside institution thoracic and lumbar spine MRI from07/14/2017. Thoracic spine: The alignment is normal. Vertebral bodies are normal in height withoutevidence of compression fractures. There is edema and enhancement in theT6 and T7 vertebral bodies, with additional edema and enhancement of theT6-7 intervertebral disc, representing discitis-osteomyelitis. This is not clearly visualized on theprior MR study. There is a large anterior osteophyte at T6-7 withsurrounding edema and enhancement measuring approximately 5.1 cm CC by 1.6cm AP (series 27 image 10) by 5.5 cm TV (series 104 image 27), representing a posterior mediastinalphlegmon/developing abscess. Additional enhancement is seen extendinginferiorly to the level of T10, likely representing extension of thisphlegmon within the posterior mediastinum. There is enhancement within the central canal extending from the level of F1nzvhazgygo the thoracic spine in the epidural space circumferentiallysurrounding the thecal sac concerning for extensive epidural abscessformation. This is most pronounced ventrally at the level of T7 where it measures 6 mm in depth (series 104 image 33)and causes mass effect on the cord and moderate central canal stenosis,displacing it to the right. There is mild T2/STIR hyperintensity withinthe cord at the level of T5-6 likely representing cord edema (series 5 image 10). There is multilevel degenerative disc disease. There are varying degreesof mild facet osteoarthritis. No neural foraminal stenosis is seen. Thereare continued small left and moderate right pleural effusions andassociated bilateral lower lobe consolidations. Lumbar spine: There is minimal L2-3 and L3-4 retrolisthesis, with grade 1 L4-5anterolisthesis. Vertebral bodies are normal in height without evidence ofcompression fractures. There is edema and enhancement within the L1 and T0lsiprpaet bodies, with edema in the L1-2 intervertebral disc, representing discitis osteomyelitis at thislevel. This has progressed when compared with the prior MR study. There iscircumferential epidural enhancement continuing from the thoracic spine tothe level of L2-3 consistent with continuation of epidural abscess. This is most pronounced at T12-L1 wherethere is a rim-enhancing fluid collection in the ventral epidural spacemeasuring 4.7 cm CC by 0.4 cm AP (series 4 image 14) by 1.5 cm TV ([id number] image 3), representing an epidural abscess. This collection causes moderate central canal stenosisat T12- L1. A more focal dorsal epidural collection is present at the T8bkhjn measuring up to 5 mm in depth (series 17 image 18). There isenhancement of several of the nerve roots of the cauda equina consistent with arachnoiditis (series 17 image 40).There multiloculated collections in the psoas muscles with rim enhancementon the left greater than on the right consistent with abscesses. In theleft psoas muscle, this collection measures 4.5 cm in AP dimension and 4.0 cm in transverse dimension ([id number] image 17). There is enhancement in the right L2-3 facet joint diseasewith an adjacent rim-enhancing collection/abscess measuring up to 2.4 cmin diameter (series 17 image 22 and series 14 image 17). Enhancement in the posterior paraspinalmusculature is likely infectious/inflammatory. The conus medullaristerminates at the level of L1-2 and the distal spinal cord signalintensity is normal. There is advanced multilevel degenerative disc disease with up to severecentral canal stenosis at L4-5. There are varying degrees of advancedfacet osteoarthritis with up to severe bilateral neural foraminalstenosis, most pronounced at L2-3, L3-4, L4-5. IMPRESSION IMPRESSION: 1. Interval progression of discitis/osteomyelitis at L1-2 with intervaldevelopment of discitis/osteomyelitis at T6-7. There is extensive abnormalepidural enhancement consistent with infection/abscess formation extendingfrom T3 to L2-3 with more focal pockets of rim enhancement as described above leading to up to moderatecentral canal stenosis. There is abnormal enhancement of the nerve rootsof the cauda equina consistent with arachnoiditis. There is mild T2/STIRhyperintensity within the cord at T5-6 above a more focal epidural collection concerning for cord edema.Soft tissue extension of infection/phlegmon/early abscess formation ispresent in the posterior mediastinum from T6-7 to T10. Bilateral psoasabscesses are present as well as infection of the right L2-3 facet joint and adjacent paraspinal abscessformation. 2. Continued small left and moderate right pleural effusions. Final results were discussed with Dr. Jules by Dr. Dill at 1035 on07/27/2017. This report was approved by Jean Dill M.D. on 07/27/2017 10:35AM . I, Dr. JEREMIAH MENDOZA M.D. have personally reviewed and interpreted thisexamination/study. This report was electronically signed by JEREMIAH MENDOZA M.D. on 07/27/201710:54 AM . Damian Lucio MD MR ORDERABLES * MRI THORACIC SPINE WWO CONT (07/26/2017 10:54 PM LEAD SYSTEMS DEVELOPER) Anatomical Region Laterality Modality Spine Other Impressions 07/27/2017 10:54 AM LEAD SYSTEMS DEVELOPER IMPRESSION: 1. Interval progression of discitis/osteomyelitis at L1-2 with interval development of discitis/osteomyelitis at T6-7. There is extensive abnormal epidural enhancement consistent with infection/abscess formation extending from T3 to L2-3 with more focal pockets of rim enhancement as described above leading to up to moderate central canal stenosis. 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 There is mild T2/STIR hyperintensity within the cord at T5-6 above a more focal epidural collection concerning for cord edema. Soft tissue extension of infection/phlegmon/early abscess formation is present in the posterior mediastinum from T6-7 to T10. Bilateral psoas abscesses are present as well as infection of the right L2-3 facet joint and adjacent paraspinal abscess formation. 2. Continued small left and moderate right pleural effusions. Final results were discussed with Dr. Jules by Dr. Dill at 1035 on 07/27/2017. This report was approved ??by Jean Dill M.D. ?? on 07/27/2017 10:35 AM . I, Dr. JEREMIAH MENDOZA M.D. have personally reviewed and interpreted this examination/study. This report was electronically signed by JEREMIAH MENDOZA M.D. ??on 07/27/2017 10:54 AM . Narrative 07/27/2017 10:54 AM LEAD SYSTEMS DEVELOPER EXAMINATION: Magnetic resonance imaging (MRI) of the thoracic and lumbar spine without and with contrast HISTORY: Discitis-osteomyelitis with epidural abscess, persistent bacteremia. TECHNIQUE: MRI of the thoracic and lumbar spine was performed prior to and following the uneventful administration of 10 mL Gadavist intravenous gadolinium contrast according to standard protocol. FINDINGS: Comparison is made to a CT of the chest abdomen pelvis from 07/20/2017 and an outside institution thoracic and lumbar spine MRI from 07/14/2017. Thoracic spine: The alignment is normal. Vertebral bodies are normal in height without evidence of compression fractures. There is edema and enhancement in the T6 and T7 vertebral bodies, with additional edema and enhancement of the T6-7 intervertebral disc, representing discitis-osteomyelitis. This is not clearly visualized on the prior MR study. There is a large anterior osteophyte at T6-7 with surrounding edema and enhancement measuring approximately 5.1 cm CC by 1.6 cm AP (series 27 image 10) by 5.5 cm TV (series 104 image 27), representing a posterior mediastinal phlegmon/developing abscess. Additional enhancement is seen extending inferiorly to the level of T10, likely representing extension of this phlegmon within the posterior mediastinum. There is enhancement within the central canal extending from the level of T3 throughout the thoracic spine in the epidural space circumferentially surrounding the thecal sac concerning for extensive epidural abscess formation. This is most pronounced ventrally at the level of T7 where it measures 6 mm in depth (series 104 image 33) and causes mass effect on the cord and moderate central canal stenosis, displacing it to the right. There is mild T2/STIR hyperintensity within the cord at the level of T5-6 likely representing cord edema (series 5 image 10). There is multilevel degenerative disc disease. There are varying degrees of mild facet osteoarthritis. No neural foraminal stenosis is seen. There are continued small left and moderate right pleural effusions and associated bilateral lower lobe consolidations. Lumbar spine: There is minimal L2-3 and L3-4 retrolisthesis, with grade 1 L4-5 anterolisthesis. Vertebral bodies are normal in height without evidence of compression fractures. There is edema and enhancement within the L1 and L2 vertebral bodies, with edema in the L1-2 intervertebral disc, representing discitis osteomyelitis at this level. This has progressed when compared with the prior MR study. There is circumferential epidural enhancement continuing from the thoracic spine to the level of L2-3 consistent with continuation of epidural abscess. This is most pronounced at T12-L1 where there is a rim-enhancing fluid collection in the ventral epidural space measuring 4.7 cm CC by 0.4 cm AP (series 4 image 14) by 1.5 cm TV (series 17 image 3), representing an epidural abscess. This collection causes moderate central canal stenosis at T12- L1. A more focal dorsal epidural collection is present at the L2 level measuring up to 5 mm in depth (series 17 image 18). There is enhancement of several of the nerve roots of the cauda equina consistent with arachnoiditis (series 17 image 40). There multiloculated collections in the psoas muscles with rim enhancement on the left greater than on the right consistent with abscesses. In the left psoas muscle, this collection measures 4.5 cm in AP dimension and 4.0 cm in transverse dimension (series 10 image 17). There is enhancement in the right L2-3 facet joint disease with an adjacent rim-enhancing collection/abscess measuring up to 2.4 cm in diameter (series 17 image 22 and series 14 image 17). Enhancement in the posterior paraspinal musculature is likely infectious/inflammatory. The conus medullaris terminates at the level of L1-2 and the distal spinal cord signal intensity is normal. There is advanced multilevel degenerative disc disease with up to severe central canal stenosis at L4-5. There are varying degrees of advanced facet osteoarthritis with up to severe bilateral neural foraminal stenosis, most pronounced at L2-3, L3-4, L4-5. Procedure Note Jeremiah Mendoza MD - 09/07/2017 EXAMINATION: Magnetic resonance imaging (MRI) of the thoracic and lumbarspine without and with contrast HISTORY: Discitis-osteomyelitis with epidural abscess, persistentbacteremia. TECHNIQUE: MRI of the thoracic and lumbar spine was performed prior to andfollowing the uneventful administration of 10 mL Gadavist intravenousgadolinium contrast according to standard protocol. FINDINGS: Comparison is made to a CT of the chest abdomen pelvis from07/20/2017 and an outside institution thoracic and lumbar spine MRI from07/14/2017. Thoracic spine: The alignment is normal. Vertebral bodies are normal in height withoutevidence of compression fractures. There is edema and enhancement in theT6 and T7 vertebral bodies, with additional edema and enhancement of theT6-7 intervertebral disc, representing discitis-osteomyelitis. This is not clearly visualized on theprior MR study. There is a large anterior osteophyte at T6-7 withsurrounding edema and enhancement measuring approximately 5.1 cm CC by 1.6cm AP (series 27 image 10) by 5.5 cm TV (series 104 image 27), representing a posterior mediastinalphlegmon/developing abscess. Additional enhancement is seen extendinginferiorly to the level of T10, likely representing extension of thisphlegmon within the posterior mediastinum. There is enhancement within the central canal extending from the level of T1hpnufkaewx the thoracic spine in the epidural space circumferentiallysurrounding the thecal sac concerning for extensive epidural abscessformation. This is most pronounced ventrally at the level of T7 where it measures 6 mm in depth (series 104 image 33)and causes mass effect on the cord and moderate central canal stenosis,displacing it to the right. There is mild T2/STIR hyperintensity withinthe cord at the level of T5-6 likely representing cord edema (series 5 image 10). There is multilevel degenerative disc disease. There are varying degreesof mild facet osteoarthritis. No neural foraminal stenosis is seen. Thereare continued small left and moderate right pleural effusions andassociated bilateral lower lobe consolidations. Lumbar spine: There is minimal L2-3 and L3-4 retrolisthesis, with grade 1 L4-5anterolisthesis. Vertebral bodies are normal in height without evidence ofcompression fractures. There is edema and enhancement within the L1 and P2hubxdnwvm bodies, with edema in the L1-2 intervertebral disc, representing discitis osteomyelitis at thislevel. This has progressed when compared with the prior MR study. There iscircumferential epidural enhancement continuing from the thoracic spine tothe level of L2-3 consistent with continuation of epidural abscess. This is most pronounced at T12-L1 wherethere is a rim-enhancing fluid collection in the ventral epidural spacemeasuring 4.7 cm CC by 0.4 cm AP (series 4 image 14) by 1.5 cm TV ([id number] image 3), representing an epidural abscess. This collection causes moderate central canal stenosisat T12- L1. A more focal dorsal epidural collection is present at the W1qrpus measuring up to 5 mm in depth (series 17 image 18). There isenhancement of several of the nerve roots of the cauda equina consistent with arachnoiditis (series 17 image 40).There multiloculated collections in the psoas muscles with rim enhancementon the left greater than on the right consistent with abscesses. In theleft psoas muscle, this collection measures 4.5 cm in AP dimension and 4.0 cm in transverse dimension ( image 17). There is enhancement in the right L2-3 facet joint diseasewith an adjacent rim-enhancing collection/abscess measuring up to 2.4 cmin diameter (series 17 image 22 and series 14 image 17). Enhancement in the posterior paraspinalmusculature is likely infectious/inflammatory. The conus medullaristerminates at the level of L1-2 and the distal spinal cord signalintensity is normal. There is advanced multilevel degenerative disc disease with up to severecentral canal stenosis at L4-5. There are varying degrees of advancedfacet osteoarthritis with up to severe bilateral neural foraminalstenosis, most pronounced at L2-3, L3-4, L4-5. IMPRESSION IMPRESSION: 1. Interval progression of discitis/osteomyelitis at L1-2 with intervaldevelopment of discitis/osteomyelitis at T6-7. There is extensive abnormalepidural enhancement consistent with infection/abscess formation extendingfrom T3 to L2-3 with more focal pockets of rim enhancement as described above leading to up to moderatecentral canal stenosis. There is abnormal enhancement of the nerve rootsof the cauda equina consistent with arachnoiditis. There is mild T2/STIRhyperintensity within the cord at T5-6 above a more focal epidural collection concerning for cord edema.Soft tissue extension of infection/phlegmon/early abscess formation ispresent in the posterior mediastinum from T6-7 to T10. Bilateral psoasabscesses are present as well as infection of the right L2-3 facet joint and adjacent paraspinal abscessformation. 2. Continued small left and moderate right pleural effusions. Final results were discussed with Dr. Jules by Dr. Dill at 1035 on07/27/2017. This report was approved by Jean Dill M.D. on 07/27/2017 10:35AM . I, Dr. JEREMIAH MENDOZA M.D. have personally reviewed and interpreted thisexamination/study. This report was electronically signed by JEREMIAH MENDOZA M.D. on 07/27/201710:54 AM . Damian Lucio MD MR ORDERABLES * IR THORACENTESIS (07/26/2017 4:07 PM LEAD SYSTEMS DEVELOPER) Anatomical Region Laterality Modality Other Impressions 07/26/2017 9:14 PM LEAD SYSTEMS DEVELOPER Impression: Ultrasound-guided diagnostic and therapeutic left thoracentesis with drainage of approximately 960 mL of straw-colored pleural fluid.? Note: Patient will be followed up with Chest X-ray. I, Dr. Acuña, was present and performed/supervised the entire procedure. This report was electronically signed by ADAM ACUÑA M.D. ??on 07/26/2017 9:14 PM . Narrative 07/26/2017 9:14 PM LEAD SYSTEMS DEVELOPER History: 66 y.o.?male?with a?PMHx?significant for MSSA chronic eczematous rash, COPD, [place], CAD, HTN, Afib w RVR, DM, DVT on Xarelto, s/p bilateral hip replacement, and new diagnosis of cirrhosis c/b portal HTN &?splenomegaly who presented to [facility] as a transfer from OSH for?L1-L2 epidural abscess,?MRSA bacteremia, and bilateral psoas myositis and abscess s/p IR aspiration of the left psoas muscle on 07/22/17. Patient also has acute hypoxic hypercarbic respiratory failure?requiring oxygen with nasal cannula at 6L. Recent CXR on 07/24/17 demonstrated small left pleural effusion with associated atelectasis/airspace disease and no right pleural effusion. Primary team consulted IR for left thoracentesis. Operators: 1. ??Dr. Acuña, Attending Physician Anesthesia: 1. ??Local anesthesia - 6 ml of 1 % lidocaine. Procedure: 1. ??Limited ultrasound of the left chest. 2. ??Ultrasound-guided diagnostic and therapeutic left thoracentesis. 3. ??Post-procedure limited ultrasound of the left chest. Procedure in Detail: The procedure and possible complications were explained to the patient's proxy in detail, and informed consent was obtained. The patient was placed in a right decubitus position on the patient's bed. ??Limited ultrasound examination of the ??left ??chest demonstrated the presence of small to moderate left pleural effusion. ??An image was recorded and a percutaneous entry point was marked in the lateral aspect of the left. The marked site and skin around the region was prepped and draped in a sterile fashion. ??Local anesthesia was provided by the injection with 1% Lidocaine. ??Using ultrasound guidance, a 5 Chinese one-step centesis catheter needle system was advanced into the left pleural cavity. The needle entry was documented. Upon fluid return, the outer sheath was advanced over the needle into the pleural cavity. The needle was removed and the sheath was then connected to a ??vacuum container bottle and?approximately 960 ml of straw-colored pleural fluid was drained. Appropriate amount of fluid was given for necessary laboratory evaluation. Post-procedure limited ultrasound of the left chest demonstrated interval decrease in pleural effusion. The sheath was removed and sterile dressing was applied with Vaseline gauze. ??The patient was transferred to the floor in stable condition. There were no complications and the patient tolerated the procedure well.? Procedure Note Adam Acuña MD - 09/07/2017 History: 66 y.o.?male?with a?PMHx?significant for MSSA chronic eczematousrash, COPD, [place], CAD, HTN, Afib w RVR, DM, DVT on Xarelto, s/p bilateralhip replacement, and new diagnosis of cirrhosis c/b portal HTN&?splenomegaly who presented to [facility] as a transfer from [facility]SH for?L1-L2 epidural abscess,?MRSA bacteremia, andbilateral psoas myositis and abscess s/p IR aspiration of the left psoasmuscle on 07/22/17. Patient also has acute hypoxic hypercarbic respiratoryfailure?requiring oxygen with nasal cannula at 6L. Recent CXR on 07/24/17 demonstrated small left pleuraleffusion with associated atelectasis/airspace disease and no right pleuraleffusion. Primary team consulted IR for left thoracentesis. Operators: 1. Dr. Acuña, Attending Physician Anesthesia: 1. Local anesthesia - 6 ml of 1 % lidocaine. Procedure: 1. Limited ultrasound of the left chest. 2. Ultrasound-guided diagnostic and therapeutic left thoracentesis. 3. Post-procedure limited ultrasound of the left chest. Procedure in Detail: The procedure and possible complications were explained to the patient'sproxy in detail, and informed consent was obtained. The patient was placedin a right decubitus position on the patient's bed. Limited ultrasoundexamination of the left chest demonstrated the presence of small to moderate left pleural effusion. Animage was recorded and a percutaneous entry point was marked in thelateral aspect of the left. The marked site and skin around the region was prepped and draped in asterile fashion. Local anesthesia was provided by the injection with 1%Lidocaine. Using ultrasound guidance, a 5 Chinese one-step centesiscatheter needle system was advanced into the left pleural cavity. The needle entry was documented. Upon fluidreturn, the outer sheath was advanced over the needle into the pleuralcavity. The needle was removed and the sheath was then connected to avacuum container bottle and?approximately 960 ml of straw-colored pleural fluid was drained. Appropriate amount offluid was given for necessary laboratory evaluation. Post-procedurelimited ultrasound of the left chest demonstrated interval decrease inpleural effusion. The sheath was removed and sterile dressing was applied with Vaselinegauze. The patient was transferred to the floor in stable condition.There were no complications and the patient tolerated the procedurewell.? IMPRESSION Impression: Ultrasound-guided diagnostic and therapeutic left thoracentesis withdrainage of approximately 960 mL of straw-colored pleural fluid.? Note: Patient will be followed up with Chest X-ray. I, Dr. Acuña, was present and performed/supervised the entire procedure. This report was electronically signed by ADAM ACUÑA M.D. on 07/26/20179:14 PM . Angela Corona MD IR ORDERABLES * XR CHEST 2VW (07/25/2017 11:34 AM LEAD SYSTEMS DEVELOPER) Anatomical Region Laterality Modality Chest Other Impressions 07/25/2017 3:52 PM LEAD SYSTEMS DEVELOPER IMPRESSION: A gastric tube can be followed below the diaphragm, however, the tip is not visualized. Lung volumes are small. Small left pleural effusion with associated atelectasis/airspace disease is present. Mild right basilar atelectasis is seen. There is no right pleural effusion or pneumothorax. The cardiac silhouette is enlarged. The aorta is atherosclerotic. Dictated by Natacha Garrett MD (residential sales rep). This report was approved ??by Natacha Garrett ?? on 07/25/2017 3:[address] NAOMI Stringer M.D. have personally reviewed and interpreted this examination/study. This report was electronically signed by NAOMI HARDEN M.D. ??on 07/25/2017 3:52 PM . Narrative 07/25/2017 3:52 PM LEAD SYSTEMS DEVELOPER EXAMINATION: XR CHEST PA AND LATERAL HISTORY: B/L pleural effusions progression COMPARISON: Comparison is made with a study from 07/18/2017. FINDINGS/ Procedure Note Naomi Harden MD - 09/07/2017 EXAMINATION: XR CHEST PA AND LATERAL HISTORY: B/L pleural effusions progression COMPARISON: Comparison is made with a study from 07/18/2017. FINDINGS/ IMPRESSION IMPRESSION: A gastric tube can be followed below the diaphragm, however, the tip isnot visualized. Lung volumes are small. Small left pleural effusion with associatedatelectasis/airspace disease is present. Mild right basilar atelectasis isseen. There is no right pleural effusion or pneumothorax. The cardiacsilhouette is enlarged. The aorta is atherosclerotic. Dictated by Natacha Garrett MD (residential sales rep). This report was approved by Natacha Garrett on 07/25/2017 3:29 PM . I, Dr. NAOMI HARDEN M.D. have personally reviewed and interpreted thisexamination/study. This report was electronically signed by NAOMI HARDEN M.D. on 07/25/20173:52 PM . Angela Corona MD DIAGNOSTIC IMAGING O RDERABLES * TSH (07/24/2017 5:08 AM LEAD SYSTEMS DEVELOPER) TSH 2.518 0.350 - 4.940 uIU/mL [facility] Blood specimen (specimen) BLOOD SPECIMEN / Unknown 07/24/2017 5:08 AM LEAD SYSTEMS DEVELOPER 07/24/2017 5:44 AM LEAD SYSTEMS DEVELOPER Angela Corona MD LAB - CHEMISTRY ROYCE KLINE [facility] Organization Address City/State/ZIP Co de Phone Number [address] [phone] * CT GUIDED NEEDLE PLACEMENT (07/22/2017 5:00 PM LEAD SYSTEMS DEVELOPER) Only the most recent of2 resultswithin the time period is included. Anatomical Region Laterality Modality Abdomen Other Impressions 07/22/2017 7:15 PM LEAD SYSTEMS DEVELOPER Impression: Successful CT-guided fine-needle aspiration of left psoas muscle fluid collection, as described above. The aspirate was serosanguineous in appearance, and approximately 0.5 mL of fluid were drained during the procedure. The aspirate was mixed with normal saline and placed into anaerobic and aerobic culture vials and sent to pathology. Please note additional lab work including pH, LDH, and lactic acid were not possible to perform. Dr. Grider performed/was present throughout the procedure and provided the moderate sedation service. Please see the nursing sedation flowsheet. Report dictated by Daniel Owusu M.D. (residential sales rep) This report was approved ??by Daniel Owusu M.D. ?? on 07/22/2017 6:44 PM . I, Dr. VILMA GRIDER M.D. have personally reviewed and interpreted this examination/study. This report was electronically signed by VILMA GRIDER M.D. ??on 07/22/2017 7:15 PM . Narrative 07/22/2017 7:15 PM LEAD SYSTEMS DEVELOPER History: 66-year-old male with a left psoas muscle fluid collection presenting to the interventional radiology department for CT guided aspiration. Operators: 1. ??Dr. Grider, Attending Physician 2. ??Dr. Owusu, IR Resident Anesthesia: Local - 10 mL of 1% lidocaine Procedure: 1. ??Limited noncontrast CT of the pelvis. 2. ??CT-guided fine-needle aspiration of left psoas fluid collection. Procedure in detail: The procedure, risks, and possible complications were explained to the patient in detail, and informed consent was obtained. The patient was placed in a prone position on the CT table and a radio-opaque grid was placed over the region of interest. Limited noncontrast CT of the pelvis showed a small fluid collection in the left psoas muscle. A percutaneous entry site was marked on the skin to access the fluid collection. The marked site and skin around the region of interest was prepped and draped in sterile fashion. ??Local anesthesia was provided with 1% Lidocaine. ??A 19-gauge Chiba needle/22-gauge spinal needle coaxial system was advanced in stages under CT guidance. Upon aspiration, the outer-sheath was advanced within the fluid collection. The aspirate was serosanguineous in appearance, and approximately 0.5 mL of fluid were drained during the procedure. The aspirate was mixed with normal saline and placed into anaerobic and aerobic culture vials and sent to pathology. Please note additional lab work including pH, LDH, and lactic acid were not possible to perform. The patient tolerated the procedure well and was transferred to the floor in stable condition. There were no immediate complications associated with the procedure. Procedure Note Vilma Grider MD - 09/07/2017 History: 66-year-old male with a left psoas muscle fluid collectionpresenting to the interventional radiology department for CT guidedaspiration. Operators: 1. Dr. Grider, Attending Physician 2. Dr. Owusu, IR Resident Anesthesia: Local - 10 mL of 1% lidocaine Procedure: 1. Limited noncontrast CT of the pelvis. 2. CT-guided fine-needle aspiration of left psoas fluid collection. Procedure in detail: The procedure, risks, and possible complications wereexplained to the patient in detail, and informed consent was obtained. Thepatient was placed in a prone position on the CT table and a radio-opaquegrid was placed over the region of interest. Limited noncontrast CT of the pelvis showed a smallfluid collection in the left psoas muscle. A percutaneous entry site wasmarked on the skin to access the fluid collection. The marked site and skin around the region of interest was prepped anddraped in sterile fashion. Local anesthesia was provided with 1%Lidocaine. A 19-gauge Chiba needle/22-gauge spinal needle coaxial systemwas advanced in stages under CT guidance. Upon aspiration, the outer-sheath was advanced within the fluidcollection. The aspirate was serosanguineous in appearance, andapproximately 0.5 mL of fluid were drained during the procedure. Theaspirate was mixed with normal saline and placed into anaerobic and aerobic culture vials and sent to pathology. Please noteadditional lab work including pH, LDH, and lactic acid were not possibleto perform. The patient tolerated the procedure well and was transferred to the floorin stable condition. There were no immediate complications associated withthe procedure. IMPRESSION Impression: Successful CT-guided fine-needle aspiration of left psoasmuscle fluid collection, as described above. The aspirate wasserosanguineous in appearance, and approximately 0.5 mL of fluid weredrained during the procedure. The aspirate was mixed with normal saline and placed into anaerobic and aerobic culture vialsand sent to pathology. Please note additional lab work including pH, LDH,and lactic acid were not possible to perform. Dr. Grider performed/was present throughout the procedure and providedthe moderate sedation service. Please see the nursing sedationflowsheet. Report dictated by Daniel Owusu M.D. (residential sales rep) This report was approved by Daniel Owusu M.D. on 07/22/2017 6:44 PM . I, Dr. VILMA GRIDER M.D. have personally reviewed and interpretedthis examination/study. This report was electronically signed by VILMA GRIDER M.D. on07/22/2017 7:15 PM . Angela Corona MD CT ORDERABLES * VAS BILATERAL VENOUS DUPLEX UE (07/22/2017 10:51 AM LEAD SYSTEMS DEVELOPER) Anatomical Region Laterality Modality Other Angela Corona MD VASCULAR LAB ORDERAB LES * VAS BILATERAL VENOUS DUPLEX LE (07/22/2017 10:51 AM LEAD SYSTEMS DEVELOPER) Anatomical Region Laterality Modality Other Angela Corona MD VASCULAR LAB ORDERAB LES * (ABNORMAL) ORGANISM ID REFLEXED (07/22/2017 6:10 AM LEAD SYSTEMS DEVELOPER) Only the most recent of2 resultswithin the time period is included. Staphylococcus Detected(A) Not Detected, Invalid, Indeterminate [facility] Staphylococcus aureus Detected(A) Not Detected, Indeterminate, Invalid [facility] mecA Methicillin Resistance Detected(A) Not Detected, Indeterminate, Invalid, Not Applicable [facility] Comment:Methicillin-RESISTAN T Staphylococcus aureus (MRSA) detected, by nucleic acid testing.?? Full antimicrobial susceptibility testing to follow. Drug of Choice: Vancomycin. Enterococcus Not Detected Not Detected, Indeterminate, Invalid [facility] Van A/B Vancomycin Resistance Not Applicable Not Detected, Indeterminate, Invalid, Not Applicable [facility] Streptococcus Not Detected Not Detected, Indeterminate, Invalid [facility] Streptococcus pyogenes (Group A) Not Detected Not Detected, Indeterminate, Invalid [facility] Streptococcus agalactiae (Group B) Not Detected Not Detected, Indeterminate, Invalid [facility] Streptococcus pneumoniae Not Detected Not Detected, Invalid [facility] Listeria monocytogenes Not Detected Not Detected, Indeterminate, Invalid [facility] Enterobacteriaceae Not Detected Not Detected, Indeterminate, Invalid [facility] Enterobacter cloacae complex Not Detected Not Detected, Indeterminate, Invalid [facility] Escherichia coli Not Detected Not Detected, Indeterminate, Invalid [facility] Klebsiella oxytoca Not Detected Not Detected, Indeterminate, Invalid [facility] Klebsiella pneumoniae Not Detected Not Detected, Indeterminate, Invalid [facility] Proteus Species Not Detected Not Detected, Indeterminate, Invalid [facility] Serratia marcescens Not Detected Not Detected , Indeterminate, Invalid [facility] Pseudomonas aeruginosa Not Detected Not Detected, Indeterminate, Invalid [facility] Acinetobacter baumannii Not Detected Not Detected, Indeterminate, Invalid [facility] KPC Not Applicable Not Detected, Indeterminate, Invalid, Not Applicable [facility] Haemophilus Influenzae Not Detected Not Detected, Indeterminate, Invalid [facility] Neisseria meningitidis Not Detected Not Detected, Indeterminate, Invalid [facility] Zain albicans Not Detected Not Detected, Indeterminate, Invalid [facility] Zain glabrata Not Detected Not Detected, Indeterminate, Invalid [facility] Zain krusei Not Detected Not Detected, Indeterminate, Invalid [facility] Zain parapsilosis Not Detected Not Detecte d, Indeterminate, Invalid [facility] Zain tropicalis Not Detected Not Detected, Indeterminate, Invalid [facility] Blood specimen (specimen) (Arm, Left) 07/22/2017 6:10 AM LEAD SYSTEMS DEVELOPER 07/22/2017 6:34 AM LEAD SYSTEMS DEVELOPER [facility] - 07/24/2017 11:14 AM LEAD SYSTEMS DEVELOPER RESULTS CALLED TO TEAM:WHITE VIA ON-CALL TEAM(Dr. Seb SON) ? [phone] @ [phone]. Antimicrobial resistance can occur via multiple mechanisms. A Not Detected result for the LOVEFiLMArray Antimicrobial resistance gene assays does not indicate antimicrobial susceptibility. Sub-culturing is required for species identification and susceptibility testing of isolates. Resulting Lab: ?? [facility] [address] [place] [address] PH: [phone] Angela Corona MD LAB - MICROBIOLOGY O RDERABLES [facility] [address] [place] [address], [facility] [phone] * ECHO [place] TRANSESOPHAGEAL (07/18/2017 12:00 AM LEAD SYSTEMS DEVELOPER) Anatomical Region Laterality Modality Other 07/18/2017 Angela Corona MD ECHOCARDIOGRAPHY RAD IANT * (ABNORMAL) VITAMIN B12 (07/17/2017 1:08 PM LEAD SYSTEMS DEVELOPER) Vitamin B12 >2,000(H) 213 - 816 pg/mL [facility] Blood specimen (specimen) BLOOD SPECIMEN / Unknown 07/17/2017 1:08 PM LEAD SYSTEMS DEVELOPER 07/17/2017 1:32 PM LEAD SYSTEMS DEVELOPER Angela Corona MD LAB - CHEMISTRY ROYCE KLINE Performing Organization Address City/[facility]/ZIP Co de Phone Number [address] [phone] * (ABNORMAL) TRANSFERRIN (07/17/2017 1:08 PM LEAD SYSTEMS DEVELOPER) Only the most recent of2 resultswithin the time period is included. Transferrin 126(L) 174 - 382 mg/dL [facility] Transferrin Saturation % 9(L) 16 - 50 % [facility] Blood specimen (specimen) BLOOD SPECIMEN / Unknown 07/17/2017 1:08 PM LEAD SYSTEMS DEVELOPER 07/17/2017 1:32 PM LEAD SYSTEMS DEVELOPER Angela Corona MD LAB - CHEMISTRY ROYCE KLINE Performing Organization Address City/[facility]/ZIP Co de Phone Number [address] [phone] * CERULOPLASMIN (07/17/2017 1:08 PM LEAD SYSTEMS DEVELOPER) Ceruloplasmin 31 20 - 60 mg/dL [facility] Blood specimen (specimen) BLOOD SPECIMEN / Unknown 07/17/2017 1:08 PM LEAD SYSTEMS DEVELOPER 07/17/2017 1:32 PM LEAD SYSTEMS DEVELOPER Angela Corona MD LAB - CHEMISTRY ROYCE KLINE Performing Organization Address City/[facility]/ZIP Co de Phone Number [address] [phone] * (ABNORMAL) IRON BLOOD (07/17/2017 1:08 PM LEAD SYSTEMS DEVELOPER) Iron 14(L) 50 - 175 mcg/dL [facility] Blood specimen (specimen) BLOOD SPECIMEN / Unknown 07/17/2017 1:08 PM LEAD SYSTEMS DEVELOPER 07/17/2017 1:32 PM LEAD SYSTEMS DEVELOPER Angela Corona MD LAB - CHEMISTRY ROYCE KLINE Performing Organization Address City/[facility]/ZIP Co de Phone Number [address] [phone] * (ABNORMAL) FERRITIN (07/17/2017 1:08 PM LEAD SYSTEMS DEVELOPER) Only the most recent of2 resultswithin the time period is included. Ferritin 947(H) 22 - 275 ng/mL [facility] Blood specimen (specimen) BLOOD SPECIMEN / Unknown 07/17/2017 1:08 PM LEAD SYSTEMS DEVELOPER 07/17/2017 1:32 PM LEAD SYSTEMS DEVELOPER Angela Corona MD LAB - CHEMISTRY ROYCE KLINE Performing Organization Address [facility]/ZIP Co de Phone Number [address] [phone] * RETIC COUNT (07/17/2017 4:50 AM LEAD SYSTEMS DEVELOPER) Reticulocyte % 1.0 0.4 - 2.5 % [facility] Reticulocyte Absolute 0.03 0.02 - 0.13 10? 6 /uL [facility] Blood specimen (specimen) BLOOD SPECIMEN / Unknown 07/17/2017 4:50 AM LEAD SYSTEMS DEVELOPER 07/17/2017 4:57 AM LEAD SYSTEMS DEVELOPER Angela Corona MD LAB - HEMATOLOGY [place] Performing Organization Address [facility]/ZIP Co de Phone Number [address] [phone] * LEGIONELLA ANTIGEN URINE (07/16/2017 11:32 PM LEAD SYSTEMS DEVELOPER) Legionella Antigen Urine Negative Negative [facility] Urine specimen (specimen) URINE / Unknown 07/16/2017 11:32 PM LEAD SYSTEMS DEVELOPER 07/16/2017 11:58 PM LEAD SYSTEMS DEVELOPER Narrative [facility] - 07/17/2017 11:08 AM LEAD SYSTEMS DEVELOPER Comment: This assay detects Legionella pneumophila serogroup one (1) antigen. A negative test result does not rule out the possibility of Legionella infection due to other serogroups or species of Legionella. A positive result may indicate a recent or remote infection with serogroup 1. Resulting Lab: ?? [facility] [address] [place] [address] PH: [phone] Angela Corona MD LAB - MICROBIOLOGY O RDERABLES Performing Organization Address [facility]/ZIP Co de Phone Number [address] [phone] * PROTEIN URINE RANDOM QUANTITATIVE (07/15/2017 11:58 PM LEAD SYSTEMS DEVELOPER) Protein Urine 57 Not Established mg/dL [facility] Urine specimen (specimen) URINE / Unknown 07/15/2017 11:58 PM LEAD SYSTEMS DEVELOPER 07/16/2017 12:22 AM LEAD SYSTEMS DEVELOPER Angela Corona MD LAB - URINE CHEMISTR Y ORDERABLES Performing Organization Address [facility] Co de Phone Number [address] [phone] * UREA NITROGEN URINE RANDOM (07/15/2017 11:58 PM LEAD SYSTEMS DEVELOPER) Urea Nitrogen Random Urine 1,084 Not Established mg/dL [facility] Urine specimen (specimen) URINE / Unknown 07/15/2017 11:58 PM LEAD SYSTEMS DEVELOPER 07/16/2017 12:22 AM LEAD SYSTEMS DEVELOPER Angela Corona MD LAB - URINE CHEMISTR Y ORDERABLES Performing Organization Address [facility] Co de Phone Number [address] [phone] * OSMOLALITY URINE (07/15/2017 11:58 PM LEAD SYSTEMS DEVELOPER) Osmolality Urine 533 50 - 1,200 mOsm/kg [facility] Urine specimen (specimen) URINE / Unknown 07/15/2017 11:58 PM LEAD SYSTEMS DEVELOPER 07/16/2017 12:22 AM LEAD SYSTEMS DEVELOPER Angela Corona MD LAB - URINE CHEMISTR Y ORDERABLES Performing Organization Address [facility]/ZIP Co de Phone Number [address] [phone] * EOSINOPHIL URINE SMEAR (07/15/2017 11:58 PM LEAD SYSTEMS DEVELOPER) Eosin Stain Urine None None [facility] Urine specimen (specimen) 07/15/2017 11:58 PM LEAD SYSTEMS DEVELOPER 07/16/2017 12:23 AM LEAD SYSTEMS DEVELOPER Angela Corona MD LAB - URINE CHEMISTR Y ORDERABLES Performing Organization Address [facility] de Phone Number [address] [phone] * RUFUS STAINING PATTERNS REFLEXED (07/15/2017 5:04 AM LEAD SYSTEMS DEVELOPER) Speckled Pattern 1:80 [facility] ([facility]) Note Comment [facility] ([facility]) Blood specimen (specimen) BLOOD SPECIMEN / Unknown 07/15/2017 5:04 AM LEAD SYSTEMS DEVELOPER 07/15/2017 9:28 AM LEAD SYSTEMS DEVELOPER Narrative [facility] ([facility]) - 07/18/2017 3:13 PM LEAD SYSTEMS DEVELOPER A positive EDITH result may occur in healthy individuals (low titer) or be associated with a variety of diseases. ??See interpretation chart which is not all inclusive: Pattern ?Antigen Detected ??Suggested Disease Association ? Homogeneous ??DNA(ds,ss), ? SLE - High titers ? Nucleosomes, ? Histones ?Drug-induced SLE ? Speckled ? Sm, GROUNDS MAINTENANCE MANAGER, SCL-70, ??SLE,MCTD,PSS (diffuse form), ? SS-A/SS-B ? Sjogrens ? Nucleolar ?SCL-70, PM-1/SCL ??High titers Scleroderma, ? PM/DM ? Centromere ?? Centromere ?PSS (limited form) w/Crest ? syndrome variable ? Nuclear Dot ??[id number] ??Primary Biliary Cirrhosis ? Nuclear ?GP210, ?Primary Biliary Cirrhosis Membrane ? yina A,B,C ? Angela Corona MD LAB - PATHOLOGY/CYTO LOGY ORDERABLES Performing Organization Address [facility] Co de Phone Number [facility] ([facility]) [address] [place] [address] * (ABNORMAL) EDITH BLOOD SCREEN W/REFLEX TITER (07/15/2017 5:04 AM LEAD SYSTEMS DEVELOPER) EDITH IFA Positive(A ) [facility] ([facility]) Comment: ? Negative ?? <1:80 ? Borderline ??1:80 ? Positive ?? >1:80 Blood specimen (specimen) BLOOD SPECIMEN / Unknown 07/15/2017 5:04 AM LEAD SYSTEMS DEVELOPER 07/15/2017 9:28 AM LEAD SYSTEMS DEVELOPER Narrative [facility] ([facility]) - 07/18/2017 3:13 PM LEAD SYSTEMS DEVELOPER Performed at: ??01 - [facility] [address] [place], [place] ??[phone] Outside Sales Advertising Executive: Erik Mcqueen PhD, Phone: ??[phone] Angela Corona MD LAB - CHEMISTRY ROYCE KLINE Performing Organization Address [facility] Co de Phone Number [facility] ([facility]) [address] [place] [address] * SMOOTH MUSCLE ANTIBODY (07/15/2017 5:04 AM LEAD SYSTEMS DEVELOPER) F-Actin Antibody IgG 4.6 0.0 - 19.9 Units [facility] Comment: F-Actin Antibody Numeric Result Interpretation: ?<20.0 Units: ??Negative ?20.0 - 30.0 Units: ??Weak Positive ?>30.0 Units: ??Moderate to Strong Positive ? Blood specimen (specimen) BLOOD SPECIMEN / Unknown 07/15/2017 5:04 AM LEAD SYSTEMS DEVELOPER 07/15/2017 9:22 AM LEAD SYSTEMS DEVELOPER Angela Corona MD LAB - SEROLOGY ORDER KENDALL Performing Organization Address City/State/[facility] Co de Phone Number [facility] [address] [place] [address] * MICROSOMAL ANTIBODY LIVER/KIDNEY (07/15/2017 5:04 AM LEAD SYSTEMS DEVELOPER) Liver-Kidney Microsomal Antibody <1.0 0.0 - 20.0 Units [facility] ([facility]) Comment: ?Negative ?0.0 - 20.0 ?Equivocal ??20.1 - 24.9 ?Positive ? >24.9 LKM type 1 antibodies are detected in patients with autoimmune hepatitis type 2 and in up to 8% of patients with chronic HCV infection. Blood specimen (specimen) BLOOD SPECIMEN / Unknown 07/15/2017 5:04 AM LEAD SYSTEMS DEVELOPER 07/15/2017 9:28 AM LEAD SYSTEMS DEVELOPER Narrative [facility] ([facility]) - 07/18/2017 4:21 PM LEAD SYSTEMS DEVELOPER Performed at: ??01 - [facility] [address] [place], [place] ??[id number] Outside Sales Advertising Executive: Erik Mcqueen PhD, Phone: ??[phone] Angela Corona MD LAB - CHEMISTRY ROYCE KLINE Performing Organization Address City/[facility]/ZIP Co de Phone Number [facility] ([facility]) [address] [place] [address] * (ABNORMAL) GGT (07/15/2017 5:04 AM LEAD SYSTEMS DEVELOPER) GGT 66(H) 9 - 64 Units/L [facility] Blood specimen (specimen) BLOOD SPECIMEN / Unknown 07/15/2017 5:04 AM LEAD SYSTEMS DEVELOPER 07/15/2017 9:22 AM LEAD SYSTEMS DEVELOPER Angela Corona MD LAB - CHEMISTRY ROYCE KLINE Performing Organization Address City/[facility]/ZIP Co de Phone Number [address] [phone] * ECHO W DOPPLER AND COLOR FLOW (07/15/2017 12:00 AM LEAD SYSTEMS DEVELOPER) Anatomical Region Laterality Modality Other 07/15/2017 Angela Corona MD ECHOCARDIOGRAPHY RAD IANT * HEPATITIS B SURFACE ANTIBODY (07/14/2017 10:11 PM LEAD SYSTEMS DEVELOPER) Hepatitis B Virus Surface Antibody Non-react marlee Non-react marlee [facility] Comment: < 8 mIU/mL Hepatitis B surface Antibody (HBsAb). Nonreactive for HBsAb - individual is considered not immune to Hepatitis B Virus infection. Hepatitis B Surface Antibody Quantitative 0.2 <8.0 mIU/mL [facility] Comment: Hepatitis B Surface Antibody Numeric Result Interpretation: ? Nonreactive: ?<8.0 mIU/mL ? Indeterminate: ??8.0 - 12.0 mIU/mL ? Reactive: ?>12.0 mIU/mL ? Blood specimen (specimen) BLOOD SPECIMEN / Unknown 07/14/2017 10:11 PM LEAD SYSTEMS DEVELOPER 07/14/2017 10:25 PM LEAD SYSTEMS DEVELOPER Angela Corona MD LAB - CHEMISTRY ROYCE KLINE Performing Organization Address [facility] Co de Phone Number [address] [phone] * HEPATITIS B CORE ANTIBODY (07/14/2017 10:11 PM LEAD SYSTEMS DEVELOPER) Pathologist [facility] HBc Antibody Total Non-reacti ve Non-reacti ve [facility] Blood specimen (specimen) BLOOD SPECIMEN / Unknown 07/14/2017 10:11 PM LEAD SYSTEMS DEVELOPER 07/14/2017 10:25 PM LEAD SYSTEMS DEVELOPER Angela Corona MD LAB - CHEMISTRY ROYCE KLINE Performing Organization Address [facility] Co de Phone Number [address] [phone] * HEPATITIS B SURFACE ANTIGEN W RFLX CONFIRMATION (07/14/2017 10:11 PM LEAD SYSTEMS DEVELOPER) Pathologist [facility] Hepatitis B Virus Surface Antigen Non-reacti ve Non-reacti ve [facility] Blood specimen (specimen) BLOOD SPECIMEN / Unknown 07/14/2017 10:11 PM LEAD SYSTEMS DEVELOPER 07/14/2017 10:25 PM LEAD SYSTEMS DEVELOPER Angela Corona MD LAB - CHEMISTRY ROYCE KLINE Performing Organization Address [facility] Co de Phone Number [address] [phone] * HEPATITIS C ANTIBODY (07/14/2017 10:11 PM LEAD SYSTEMS DEVELOPER) Pathologist [facility] Hepatitis C Antibody Non-react marlee Non-reac tive [facility] Comment: Hepatitis C Antibody screen indicates no serologic evidence of past or current infection with Hepatitis C Virus. Patients with unexplained liver disease who are immunocompromised or suspected of having acute Hepatitis C infection may benefit from Nucleic Acid Test (SUNIL) for Hepatitis C Viral RNA to confirm Hepatitis C status. Blood specimen (specimen) BLOOD SPECIMEN / Unknown 07/14/2017 10:11 PM LEAD SYSTEMS DEVELOPER 07/14/2017 10:25 PM LEAD SYSTEMS DEVELOPER Angela Corona MD LAB - CHEMISTRY ORDE RABANGELIA Performing Organization Address [facility]/ZIP Co de Phone Number [address] [phone] * HIV-1 HIV-2 ANTIGEN/ANTIBODY (07/14/2017 10:11 PM LEAD SYSTEMS DEVELOPER) [facility] HIV Antigen/Antibod y 1 & 2 Non-reacti ve Non-react marlee [facility] Comment: Neither HIV-1 p24 Antigen nor HIV-1/HIV-2 Antibodies are detected. ? Blood specimen (specimen) BLOOD SPECIMEN / Unknown 07/14/2017 10:11 PM LEAD SYSTEMS DEVELOPER 07/14/2017 10:25 PM LEAD SYSTEMS DEVELOPER Angela Corona MD LAB - HEMATOLOGY ORD ERABLES Performing Organization Address [facility] Co de Phone Number [address] [phone] * (ABNORMAL) WLEOT-5-[id number] BLOOD PHENOTYPING PANEL (07/14/2017 10:11 PM LEAD SYSTEMS DEVELOPER) Pathologist [facility] Itzuw-3-Nbeqgejzds n 223(H) 90 - 200 mg/dL [facility] ([facility]) Phenotype (PI) Comment [facility] ([facility]) Comment: 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 Increases may occur during concurrent infection, , estrogen therapy, and malignancy. A1A genotyping may help verify the presence of the deficient Z allele. ? Phenotype ?? Population ?A-1-AT Concentration ? Incidence % ?Reference Interval ? MM ?86.5% ?96 - 189 ? MS ? 8.0% ?83 - 161 ? MZ ? 3.9% ?60 - 111 ? FM ? 0.4% ?93 - 191 ? SZ ? 0.3% ?42 - ??75 ? SS ? 0.1% ?62 - 119 ? ZZ ? 0.05% ? 16 - ??38 ? FS ? 0.05% ? 70 - 128 ? FZ ?Unknown ?44 - ??88 ? FF ?Unknown ?Unknown Blood specimen (specimen) BLOOD SPECIMEN / Unknown 07/14/2017 10:11 PM LEAD SYSTEMS DEVELOPER 07/14/2017 10:25 PM LEAD SYSTEMS DEVELOPER Narrative [facility] ([facility]) - 07/19/2017 2:14 PM LEAD SYSTEMS DEVELOPER Performed at: ??01 - [facility] [address] [place], [place] ??[phone] Outside Sales Advertising Executive: Erik Mcqueen PhD, Phone: ??[phone] Performed at: ??02 - [facility] [address] ??[id number] Outside Sales Advertising Executive: Leroy Sanchez MD, Phone: ??[phone] Angela Corona MD LAB - CHEMISTRY ROYCE KLINE Performing Organization Address [facility] Co de Phone Number [facility] ([facility]) [address] [place] [address], [place] * TSH HI LOW REFLEX FREE T4 (04/23/2017 11:03 AM LEAD SYSTEMS DEVELOPER) TSH 1.64 0.40 - 4.50 mIU/L [facility] ([facility]) Comment: Test Performed at: [employer] [place] [address] [place], [place] ??[phone] LEROY LOPEZ DO,MPH 04/23/2017 11:0 3 AM LEAD SYSTEMS DEVELOPER 04/23/2017 11:03 AM LEAD SYSTEMS DEVELOPER Puneet Faustin MD LAB - CHEMISTRY ROYCE KLINE Performing Organization Address [facility] de Phone Number [facility] ([facility]) * ZINC BLOOD (04/23/2017 11:03 AM LEAD SYSTEMS DEVELOPER) Zinc 68 60 - 130 mcg/dL [facility] ([facility]) Comment: This test was developed and its analytical performance characteristics have been determined by [employer] [facility]. It has not been cleared or approved by the US Food and Drug Administration. This assay has been validated pursuant to the CLIA regulations and is used for clinical purposes. REPORT COMMENT: FASTING:YES Test Performed at: [employer] [address] [place], [place] ??[phone] YOSELYN CURRY MD,FCAP Blood specimen (specimen) BLOOD SPECIMEN / Unknown 04/23/2017 11:03 AM LEAD SYSTEMS DEVELOPER 04/23/2017 11:03 AM LEAD SYSTEMS DEVELOPER Puneet Faustin MD LAB - CHEMISTRY ROYCE KLINE Performing Organization Address City/[facility]/ZIP Co de Phone Number [facility] ([facility]) * (ABNORMAL) VITAMIN D 25-HYDROXY (04/23/2017 11:03 AM LEAD SYSTEMS DEVELOPER) Vitamin D, 25 Hydroxy Total 11(L) 30 - 100 ng/mL [facility] ([facility]) Comment: Vitamin D Status ? 25-OH Vitamin D: Deficiency: ?<20 ng/mL Insufficiency: ? 20 - 29 ng/mL Optimal: ? > or = 30 ng/mL For 25-OH Vitamin D testing on patients on D2-supplementation and patients for whom quantitation of D2 and D3 fractions is required, the QuestAssureD(TM) 25-OH VIT D, (D2,D3), LC/MS/MS is recommended: order code 39848 (patients >2yrs). For more information on this test, go to: http://education.[employer]/faq/WEE438 (This link is being provided for informational/educational purposes only.) Test Performed at: [employer] [address] [place], [place] ??[phone] LEROY LOPEZ DO,MPH Blood specimen (specimen) BLOOD SPECIMEN / Unknown 04/23/2017 11:03 AM LEAD SYSTEMS DEVELOPER 04/23/2017 11:03 AM LEAD SYSTEMS DEVELOPER Puneet Faustin MD LAB - CHEMISTRY ROYCE KLINE Performing Organization Address [facility]/State/ZIP Co de Phone Number [facility] ([facility]) * PATHOLOGY TISSUE FOR DERMATOLOGY (02/14/2017 12:00 AM CDT) Only the most recent of2 resultswithin the time period is included. 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 GROSS DESCRIPTION: Received is one formalin filled container labeled with the patients name and designated right upper back. The specimen consists of a punch biopsy measuring [id number], bisected. Jar 0. MICROSCOPIC DESCRIPTION: There is spongiosis. In the dermis there is a mainly superficial perivascular lymphohistiocytic inflammatory infiltrate with eosinophils. A Grocott methenamine silver (GMS) stain is negative for fungal elements in the sections examined COMMENT: ??The histological differential diagnosis includes a contact dermatitis, nummular eczema, and an eczematous drug eruption. See direct immunofluorescence results, [id number]. Electronically signed out by Sonia Montoya M.D. 02/17/2017 1:33:47PM [facility] Comment: Performed at: Dermatopathology Laboratory [facility] - Department of Dermatology [address], [address] [place] [address] Phone number: [phone] FAX: [phone] Skin (tissue) specimen (specimen) 02/14/2017 02/15/2017 Narrative [facility] - 02/17/2017 1:34 PM CDT Specimen A: Type->Punch ?Site->R upper back ?History->generalized pink non-scaly rash on back and lateral legs with no scales or blisters for past 2 years, there are overlying prurigo nodules. Pt has history of CHF, Afib, T2DM, HTN, COPD.. ?Impression->bullous pemphigoid vs. eczematous rash vs. others ?Check Margins:->N/A ?Prior Biopsy->N/A Puneet Faustin MD LAB - PATHOLOGY/CYTO LOGY ORDERABLES [facility] [address] [place] [address], [facility] [phone] Care Teams Fabric Stretcher Relationship Specialty Start Date End Date Cleo Funk DO [address] [place] [address] PCP - General Family Medicine 05/15/24
--- OUTSIDE RECORDS SUMMARY | 2024-05-24 23:32 | XMS_ITS | Encounter Summary ---
Author Organization [facility] Address [address] [place] [address] Care Team Providers Care Home Care Companion Name Role Phone Napoleon Birmingham Primary Care Provider Unavailabl e Reason for Visit * Reason Onset Date Comments Follow-up 11/16/2023 Encounter Details Date Type Department Care Team ([facility] st Contact Info) Description 11/16/2023 Telephone [facility] - GI [address] [facility], [facility] [place] [phone] Twin Miller MD [address] [place] [address] OF GASTROENTEROLOGY [place], [place] [id number] Follow-up Social History Tobacco Use Types Packs/Day Years Used Date Smoking Tobacco: Former Cigarettes Q uit: 06/06/1981 Smokeless Tobacco: Never Alcohol Use Standard Drinks/Week [...] and heating? Not hard at all 10/14/2023 [facility] [place] of Occupat ional Health - Occupational Stress [...] place to sleep or slept in a usp (including now)? No 10/14/2023 Sex and Gender Information Value Date Recorded Sex Assigned at Not on file Gender Identity Not on file Sexual Orientation Not on file documented as of this encounter Functional Status Functional Status Response Date of [...] person have difficulty concentrating/remembering/making decisions? No 10/14/2023 documented as of this encounter Miscellaneous Notes * Telephone Encounter - Cheri Clark RN - 11/16/2023 8:45 AM CDT Patient had to cancel his November appointment due to being in the hospital.He was re-scheduled to 04/02. His , Trinity, had sent a [employer] message. Closet Organizer had sent her a [employer] message back with times. Encouraged her to call or send a adaffixt message back. Thanks. Jaylene RN documented in this encounter Plan of Treatment Upcoming Encounters Date Type Department Care Team (Late st Contact Info) Description 07/09/2024 12:30 PM C T TECH Office Visit [facility] - GI [address] [place] [address], [place] [address] Twin Miller MD [address] [place] [address] [place] [address] 09/19/2024 2:00 PM CDT Office Visit [facility] - Orthopedic Surgery [address] [facility] [place] [address] Larry Alexander MD [address] [facility] [address] [place] [address] documented as of this encounter Goals Goal Patient Goal Type Associated Problems Recent Progress Patient-Stated? Author Medication Management General On track( 023 12:04 PM CDT) No Monty Gentile RN Note: Expected end date: Interventions: Take all medications as prescribed Let your doctor know right away about any changes in your medications Make sure to request a refill of your medication at least one week prior to your last dose Mobility General On track( 023 12:04 PM CDT) No Nita Bryant, DONTAE Note: Expected end date: 08/05/2019 The goal is to maintain or improve your mobility at the optimum level for you. Interventions: documented as of this encounter Results * (ABNORMAL) PT-INR [facility] (04/02/2024 11:08 AM CDT) PT 17.9(H) 12.1 - 14.8 Seconds 04/02/2024 12:13 PM [facility] INR 1.5 See Comment 04/02/2024 12:13 PM [facility] Comment:The suggested therap eutic range for standard coumadin (warfarin) therapy is an INR of 2.0-3.0. For high-risk patients (Mechanical Mitral Valve Prosthesis, etc.), the suggested prophylactic therapeutic range is an INR of 2.5-3.5. Blood BLOOD SPECIMEN / Unknown Lab Venipuncture / Unknown 04/02/2024 11:08 AM CDT 04/02/2024 11:14 AM CDT Twin Miller MD LAB - COAGULAT ION ORDERABLES [facility] [address] [place] [address], [facility] [phone] * (ABNORMAL) COMPREHENSIVE METABOLIC PANEL (04/02/2024 11:08 AM CDT) BUN 30(H) 7 - 26 mg/dL 04/02/2024 12:13 PM [facility] Creatinine 1.87(H) 0.71 - 1.16 mg/dL 04/02/2024 12:13 PM [facility] Sodium 145 136 - 145 mmol/L 04/02/2024 12:13 PM [facility] Potassium 3.8 3.5 - 4.5 mmol/L 04/02/2024 12:13 PM [facility] Chloride 105 98 - 107 mmol/L 04/02/2024 12:13 PM [facility] CO2 30(H) 22 - 29 mmol/L 04/02/2024 12:13 PM [facility] Glucose 106(H) 70 - 99 mg/dL 04/02/2024 12:13 PM [facility] Calcium 9.6 8.4 - 10.2 mg/dL 04/02/2024 12:13 PM [facility] Protein Total 6.8 6.0 - 8.3 g/dL 04/02/2024 12:13 PM [facility] Albumin 3.5 3.4 - 5.0 g/dL 04/02/2024 12:13 PM [facility] Bilirubin Total 0.5 0.2 - 1.2 mg/dL 04/02/2024 12:13 PM [facility] Alkaline Phosphatase 95 40 - 150 U/L 04/02/2024 12:13 PM [facility] ALT 14 5 - 55 U/L 04/02/2024 12:13 PM [facility] AST 22 5 - 34 U/L 04/02/2024 12:13 PM [facility] Anion Gap 10 6 - 16 04/02/2024 12:13 PM [facility] BUN/Creatinine Ratio 16 7 - 23 04/02/2024 12:13 PM [facility] Osmolality Calculated 307(H) 275 - 295 mOsm/kg 04/02/2024 12:13 PM [facility] Albumin/Globulin Ratio 1.1 1.1 - 2.3 04/02/2024 12:13 PM [facility] eGFR by CKD-EPI 37(L) >=90 mL/min/1.7 3 m2 04/02/2024 12:13 PM [facility] Blood BLOOD SPECIMEN / Unknown Lab Venipuncture / Unknown 04/02/2024 11:08 AM CDT 04/02/2024 11:46 AM T Twin Miller MD LAB - CHEMISTR Y ORDERABLES [facility] [address] [place] [address], [facility] [phone] * (ABNORMAL) CBC WITH DIFFERENTIAL (04/02/2024 11:08 AM T) WBC 6.7 4.0 - 10.7 x10E9/L 04/02/2024 1:27 PM [facility] RBC Count 3.48(L) 4.30 - 5.80 x10E12/L 04/02/2024 1:27 PM [facility] Hemoglobin 10.1(L) 13.3 - 17.5 g/dL 04/02/2024 1:27 PM [facility] Hematocrit 33.6(L) 38.7 - 51.1 % 04/02/2024 1:27 PM [facility] MCV 96.6 80.0 - 98.0 fL 04/02/2024 1:27 PM [facility] MCH 29.0 26.7 - 33.6 pg 04/02/2024 1:27 PM [facility] MCHC 30.1(L) 31.7 - 36.3 g/dL 04/02/2024 1:27 PM [facility] RDW-CV 15.7(H) 11.3 - 14.8 % 04/02/2024 1:27 PM [facility] Platelet Count 120(L) 150 - 420 x10E9/L 04/02/2024 1:27 PM [facility] MPV 04/02/2024 1:27 PM [facility] Comment:Unable to report Neutrophil % 67.8 41.0 - 74.0 % 04/02/2024 1: PM [facility] Lymphocyte % 12.7(L) 17.0 - 47.0 % 04/02/2024 1:27 PM [facility] Monocyte % 13.0(H) 3.0 - 11.0 % 04/02/2024 1:27 PM [facility] Eosinophil % 5.7 0.0 - 7.0 % 04/02/2024 1:27 PM [facility] Basophil % 0.7 0.0 - 1.6 % 04/02/2024 1:27 PM [facility] Immature Granulocytes % 0.1 0.0 - 1.0 % 04/02/2024 1:27 PM [facility] Neutrophil Absolute 4.51 1.60 - 7.50 x10E9/L 04/02/2024 1:27 PM [facility] Lymphocyte Absolute 0.85(L) 1.00 - 4.40 x10E9/L 04/02/2024 1:27 PM [facility] Monocyte Absolute 0.87 0.15 - 1.00 x10E9/L 04/02/2024 1:27 PM CDT [facility] Eosinophil Absolute 0.38 0.00 - 0.60 x10E9/L 04/02/2024 1:27 PM CDT [facility] Basophil Absolute 0.05 0.00 - 0.13 x10E9/L 04/02/2024 1:27 PM CDT [facility] Blood BLOOD SPECIMEN / Unknown Lab Venipuncture / Unknown 04/02/2024 11:08 AM CDT 04/02/2024 11:46 AM CDT Twin Miller MD LAB - HEMATOLO GY ORDERABLES Performing Organization Address City/[facility]/ZIP Co de Phone Number [address] [address], [facility] [phone] * ALPHA FETOPROTEIN BLOOD TUMOR MARKER (04/02/2024 11:08 AM CDT) Alpha-Fetoprote in Tumor Marker <2.0 <=8.3 ng/mL 04/02/2024 12:37 PM CDT [facility] Comment: AFP values will vary depending on testing procedure used. Results are not comparable across different methods. AFP values obtained by [facility] using an Farias Alinity Immunoassay. 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
--- OUTSIDE RECORDS SUMMARY | 2024-05-24 23:32 | XMS_ITS | Encounter Summary ---
Author Organization [facility] Address [address] [facility] [place] [address] Care Team Providers Care Shellac Polisher Name Role Phone Cleo Funk DO Primary Care Provider [phone]- [phone] Encounter Details Date Type Department Care Team (Late st Contact Info) Description 05/15/2024 Orders Only [facility] - Orthopedic Surgery [address] [place] [phone] Larry Alexander MD [address] [facility] [address] [place] [address] Left knee pain, unspecified chronicity Social History Tobacco Use Types Packs/Day Years [...] Recorded Patient Health Questionnaire-2 Score 1 05/15/2024 [place] of Occupat ional Health - Occupational Stress [...] place to sleep or slept in a senior living (including now)? No 10/14/2023 Sex and Gender [...] No 10/14/2023 documented as of this encounter Plan of Treatment Upcoming Encounters Date Type Department Care Team (Late st Contact Info) Description 07/09/2024 12:30 PM RESTAURANT SUPERVISOR Office Visit [facility] [address] [facility], [place] [address] Twin Miller MD [address] [facility] [address] [facility] [place] [address] 09/19/2024 2:00 PM CDT Office Visit [facility] - Orthopedic Surgery [address] [place] [phone] Larry Alexander MD [address] [facility] [address] [place] [address] documented as of this encounter Goals Goal [...] you. 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
--- OUTSIDE RECORDS SUMMARY | 2024-05-24 23:32 | XMS_ITS | Encounter Summary ---
Author Organization [facility] Address [address] [facility] [place] [address] Care Team Providers Care Loan Consultant Name Role Phone FunkRoseth Dylan EMERSON Primary Care Provider +1- [phone] Encounter Details Date Type Department Care Team (Latest Contact Info) Description 05/15/2024 Travel Social History Tobacco Use Types Packs/Day [...] Recorded Patient Health Questionnaire-2 Score 1 05/15/2024 [facility] [place] of Occupat ional Health - Occupational Stress [...] place to sleep or slept in a fpc (including now)? 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 [address] [place] [address] documented as of this encounter Goals Goal [...] 023 12:04 PM CDT) No Nita Bryant, RN Note: Expected end date: 08/05/2019 The [...] documented as of this encounter Care Teams Loan Consultant Relationship Specialty Start Date End Date Cleo Funk DO [address] [facility] [address] [place] [address] PCP - General Family Medicine 05/15/24 documented as of this encounter
--- OUTSIDE RECORDS SUMMARY | 2024-05-24 23:32 | XMS_ITS | Encounter Summary ---
Author Organization [facility] Address [address] [facility] [address] Care Team Providers Care Strategic Planning Manager Name Role Phone Napoleon Birmingham Primary Care Provider Unavailabl e Reason for Referral * Radiology Services (Routine) - Closed Specialty Diagnoses / Procedures Referred By Ru flores Referred To Contact Ultrasound Diagnoses 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) Cirrhosis of liver without ascites, unspecified hepatic cirrhosis type (HCC) Nonalcoholic steatohepatitis (RAYGOZA) Atrial fibrillation, unspecified type (HCC) Acute gastric ulcer with hemorrhage Procedures US ABDOMEN LIMITED Twin Miller MD [address] [facility] 2L DIV [place] [address] [address] Referral ID Status Reason Start Date Expiration Date Visits Re quested Visits Authorized [id number] Closed 03/21/2023 03/20/2024 1 1 Reason for Visit * Radiology Services (Routine) - Closed Specialty Diagnoses / Procedures Referred By Contac t Referred To Contact Ultrasound Diagnoses 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) Cirrhosis of liver without ascites, unspecified hepatic cirrhosis type (HCC) Nonalcoholic steatohepatitis (RAYGOZA) Atrial fibrillation, unspecified type (HCC) Acute gastric ulcer with hemorrhage Procedures US ABDOMEN LIMITED Twin Miller MD [address] [facility] 2L [place] [address] [facility] [address] [place] [address] Referral ID Status Reason Start Date Expiration Date Visits Re quested Visits Authorized [id number] Closed 03/21/2023 03/20/2024 1 1 Encounter Details Date Type Department Care Team (Latest Contact Info) Description 04/02/2024 11:00 AM CDT - 04/02/2024 11:59 [address] [facility] En[facility] [address] [place] [phone] Twin Miller MD [address] [place] [address] Discharge Disposition: Home or Self Care Social History Tobacco Use Types Packs/Day Years [...] and heating? Not hard at all 10/14/2023 [facility] [place] of Occupat ional Health - Occupational Stress [...] place to sleep or slept in a long term (including now)? No 10/14/2023 Sex and Gender [...] No 10/14/2023 documented as of this encounter Medications at Time of Discharge Medication Sig Dispensed Refills Start Date End Date acetaminophen (TYLENOL) 325 MG tabletIndications:Other cirrhosis of liver (HCC) Take 2 (two) tablets by mouth every 4 hours as needed albuterol HFA (Proventil; Ventolin; Proair) 108 (90 Base) MCG/ACT inhaler Inhale 2 (two) puffs by mouth as needed for Shortness of Breath albuterol-ipratropium (Duo-Neb) 0.5-2.5 (3) MG/3ML nebulizer solution Inhale 3 mL by mouth 4 times daily apixaban (ELIQUIS) 5 MG tablet Take 1 (one) tablet by mouth 2 times daily aspirin EC (ECOTRIN) 81 MG tablet Take 1 (one) tablet by mouth once daily baclofen (LIORESAL) 10 MG tablet Take 1 (one) tablet by mouth at bedtime May cause drowsiness. BREZTRI AEROSPHERE 160-9-4.8 MCG/ACT AERO Inhale 2 (two) puffs by mouth 2 times daily 08/03/2021 bumetanide (BUMEX) 0.5 MG tablet Take 1 (one) tablet by mouth 2 times daily Cetirizine HCl (ZYRTEC PO) Take 10 mg by mouth daily with breakfast doxycycline hyclate (VIBRAMYCIN) 100 MG capsule Take 1 (one) capsule by mouth once daily doxycycline monohydrate 100 MG capsule Take 1 (one) capsule by mouth once daily 11/03/2023 ferrous sulfate 325 (65 FE) MG tablet Take 1 (one) tablet by mouth daily with breakfast fluticasone propionate (Flonase) 50 MCG/ACT nasal spray [place] 1 (one) spray into each nostril once daily folic acid 400 MCG tablet Take 1 (one) tablet by mouth once daily lactobacillus (Lactinex) PACK granules Take 1 (one) packet by mouth 3 times daily 11/02/2023 levalbuterol (Xopenex) 1.25 MG/0.5ML nebulizer solution Inhale 0.5 mL by mouth every 6 hours 11/02/2023 losartan (Cozaar) 25 MG tabletIndications:Hyper tension Take 1 (one) tablet by mouth once daily Reasons: High Blood Pressure Disorder 11/03/2023 magnesium oxide (Mag-Ox) 400 MG tablet Take 1 (one) tablet by mouth 2 times daily metoprolol succinate XL 24hr (TOPROL XL) 50 MG tablet Take 1 (one) tablet by mouth once daily omeprazole (PriLOSEC) 40 MG capsule Take 1 (one) capsule by mouth daily before breakfast Other (Patient uses variety of topicals...Eucerin, triamcinolone, hydrocortisone) Oxygen 1 L Pyridoxine HCl (VITAMIN B-6 PO) Take 100 mg by mouth once daily rifAXIMin (Xifaxan) 550 MG tablet Take 1 (one) tablet by mouth 2 times daily 11/02/2023 roflumilast (DALIRESP) 500 MCG tablet Take 1 (one) tablet by mouth once daily senna (Senokot) 8.6 MG tablet Take 1 (one) tablet by mouth 2 times daily as needed for Constipation 11/02/2023 spironolactone (Aldactone) 25 MG tablet Take 0.5 (one-half) tablet by mouth once daily 01/27/2021 tamsulosin (FLOMAX) 0.4 MG capsuleIndications:Othe r cirrhosis of liver (HCC) Take 1 (one) capsule by mouth at bedtime 1 02/08/2018 vitamin D3 (Cholecalciferol) 25 MCG (1000 UNITS) tablet Take 1 (one) tablet by mouth once daily documented as of this encounter Plan of Treatment Upcoming Encounters Date Type Department Care Team (Late st Contact Info) Description 07/09/2024 12:30 PM YEAST TENDER Office Visit [facility] - GI [address] [place] [address], [place] [address] Twin Miller MD [address] [place] [address] [place] [address] 09/19/2024 2:00 PM CDT Office Visit [facility] - Orthopedic Surgery [address] [place] [phone] Larry Alexander MD [address] [facility] [address] [place] [address] documented as of this encounter Goals Goal [...] you. 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) Cirrhosis of liver without ascites, unspecified hepatic cirrhosis type (HCC) Nonalcoholic steatohepatitis (RAYGOZA) Atrial fibrillation, unspecified type (HCC) Acute gastric ulcer with hemorrhage documented in this encounter Results * US ABDOMEN LIMITED (04/02/2024 12:11 PM [...] DATE/TIME OF EXAM: ??04/02/2024 12:19 PM, LOCATION ??[facility] INDICATION: K75.81: Liver cirrhosis secondary [...] DATE/TIME OF EXAM: 04/02/2024 12:19 PM, LOCATION [facility] INDICATION: K75.81: Liver cirrhosis secondary [...] on 04/02/2024 7:45 PM Twin Miller MD ORDERABLES documented in this encounter Visit Diagnoses Diagnosis 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) Other chronic nonalcoholic liver disease Cirrhosis of liver without ascites, unspecified hepatic cirrhosis type (HCC) Nonalcoholic steatohepatitis (RAYGOZA) Other chronic nonalcoholic liver disease Atrial fibrillation, unspecified type (HCC) Acute gastric ulcer with hemorrhage documented in this encounter Additional Health Concerns Infection Onset Date Last Indicated Resolved Time MRSA Hx Comment:-nasal screen 09/201709/12/2017 10/17/2023 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
--- OUTSIDE RECORDS SUMMARY | 2024-05-24 23:32 | XMS_ITS | Encounter Summary ---
Author Organization [facility] Address [address] [facility] [place] [address] Care Team Providers Care Button Bradder Name Role Phone FunkRoseth Dylan EMERSON Primary Care Provider +1- [phone] Reason for Visit * Reason Comments Pain Knee * Consult, Test & Treat (Routine) - Pending Review Specialty Diagnoses / Procedures Referred By Ru flores Referred To Contact Orthopedic Surgery / Orthopedics Diagnoses Follow-up exam Napoleon Birmingham Jeffrey B, MD [address] [place] [id number] Referral ID Status Reason Start Date Expiration Date V isits Requested Visits Authorized [id number] Pending Review 05/15/2024 05/15/2025 1 1 Encounter Details Date Type Department Care Team (Latest Contact Info) Description 05/15/2024 1:15 PM PAPER CUP MACHINE OPERATOR Office Visit [facility] - Orthopedic Surgery [address] [place] [phone] Larry Alexander MD [address] [place] [id number] Primary osteoarthritis of left knee (Primary Dx) Social History Tobacco Use Types [...] Recorded Patient Health Questionnaire-2 Score 1 05/15/2024 [facility] of Occupat ional Health - Occupational [...] place to sleep or slept in a snf (including now)? No 10/14/2023 Sex and Gender [...] No 10/14/2023 documented as of this encounter Progress Notes * Larry Alexander MD - 05/15/2024 1:15 PM CST Patient returns for repeat left knee injection. Physical exam: Examination of the left knee reveals intact skin without signs of infection. X-rays: None obtained Assessment: Left knee osteoarthritis here for repeat injection Plan: We will proceed with repeat left knee injection today. Please see the procedure note for further details. We will see patient back as needed. R CUP MACHINE OPERATOR documented in this encounter Procedure Notes * Larry Alexander MD - 05/15/2024 1:52 PM CSTAssociated Order(s): PROC INJECTION JOINT (SMALL/INTERMED/MAJOR) Procedure(s): PA DRAIN/INJECT LARGE JOINT/BURSA Pre-Procedure Diagnose(s): Primary osteoarthritis of left knee Orthopaedic Surgery Procedure Note Mason Keys [id number] Diagnosis: Left knee pain Procedure: Injection of [...] reviewed. The patient was understanding and agreeable. The patient was placed into the appropriate position. The area was prepped with betadine and alcohol. Utilizing the peripatellar portal, the skin, subcutaneous, and pericapsular tissues were injectedwith 3 cc 1% lidocaine without epinephrine using a 21Ga needle. The patient's left knee joint was then entered. Confirmation of location inside the joint was evidenced by aspiration of straw colored synovial fluid. 2 cc of Kenalog/3cc lidocaine was injected into the joint. The needle was removed and the needle site cleaned with alcohol and dressed with a sterile bandage. The procedure was performed under sterile conditions. The patient tolerated the procedure well. Remainder of plan per note. Injection performed by: Resident on service Blood Loss: Minimal I was present for the entire procedure Larry Alexander MD 05/15/2024 1:52 PM R CUP MACHINE OPERATOR documented in this encounter Plan of Treatment Upcoming Encounters Date Type Department Care Team (Late st Contact Info) Description 07/09/2024 12:30 PM PAPER CUP MACHINE OPERATOR Office Visit [facility] - GI [address] [place] [address], [place] [address] Twin Miller MD [address] [place] [address] [place] [address] 09/19/2024 2:00 PM CDT Office Visit [facility] - Orthopedic Surgery [address] [place] [phone] Larry Alexander MD [address] [address] documented as of this encounter Goals Goal [...] On track( 023 12:04 PM CDT) Nita Crowder, DONTAE Note: Expected end date: 08/05/2019 The goal is to maintain or improve your mobility at the optimum level for you. Interventions: documented as of this encounter Procedures Procedure Name Priority Date/Time Associated Diagnosis Comments PA DRAIN/INJECT LARGE JOINT/BURSA Routine 05/15/2024 1:52 PM PAPER CUP MACHINE OPERATOR Primary osteoarthritis of left knee documented in this encounter Results * PA DRAIN/INJECT LARGE JOINT/BURSA (05/15/2024 1:52 PM PAPER CUP MACHINE OPERATOR) Narrative Larry Alexander MD - 05/15/2024 1:52 PM PAPER CUP MACHINE OPERATOR Larry Alexander MD ? 05/15/2024 ??4:48 PM Orthopaedic Surgery Procedure Note Mason Keys [id number] Diagnosis: Left knee pain Procedure: Injection of [...] Larry Alexander MD PROCEDURE/MINOR CASA GICAL ORDERABLES documented in this encounter Visit Diagnoses Diagnosis Primary osteoarthritis of left knee- Primary Primary localized osteoarthrosis, lower leg documented in this encounter Administered Medications Inactive Administered Medications - up to 3 most recent administrations Medication Order MAR Action Action Date Dose Rate Site lidocaine (Xylocaine) 1 % injection Infiltration, ONCE, 1 dose, On Tue05/15/24 at 1400 $ Given 05/15/2024 2:35 PM PAPER CUP MACHINE OPERATOR Left Knee triamcinolone acetonide (Kenalog-40) injection 80 mg 80 mg, Intra-articular, ONCE, 1 dose, On Tue05/15/24 at 1400, Shake well before using. 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
--- OUTSIDE RECORDS SUMMARY | 2024-05-24 23:32 | XMS_ITS | Encounter Summary ---
Author Organization [facility] Address [address] [facility] [place] [address] Care Team Providers Care Electroplater Apprentice Name Role Phone Napoleon Birmingham Primary Care Provider Ethan bridges Encounter Details Date Type Department Care Team (Latest Contact Info) Description 03/05/2024 Travel Social History Tobacco Use Types Packs/Day [...] and heating? Not hard at all 10/14/2023 [facility] of Occupat ional Health - Occupational Stress [...] place to sleep or slept in a penitentiary (including now)? No 10/14/2023 Sex and Gender [...] st Contact Info) Description 07/09/2024 12:30 PM BOX SPINNER Office Visit [facility] - GI [address] [place] [address], [place] [phone] Twin Miller MD [address] [place] [address] [place] [address] 09/19/2024 2:00 PM CDT Office Visit [facility] - Orthopedic Surgery [facility] [place] [phone] Larry Alexander MD [address] [place] [address] documented as of this encounter Goals Goal [...] documented as of this encounter Care Teams Electroplater Apprentice Relationship Specialty Start Date End Date Napoleon Birmingham PCP - General 10/13/23 05/14/24 documented as of this encounter
--- OUTSIDE RECORDS SUMMARY | 2024-05-24 23:32 | XMS_ITS | Encounter Summary ---
Author Organization [facility] Address [address] [facility] [place] [address] Care Team Providers Care Floor Director Name Role Phone Napoleon Birmingham Primary Care Provider Unavailestrellita e Encounter Details Date Type Department Care Team (Latest Contact Info) Description 04/02/2024 10:22 AM CDT - 04/02/2024 10:59 AM CDT Hospital Encounter [facility] LAB OP DRAW STATION [address] [place] [phone] Twin Miller MD [address] OF GASTROENTEROLOGY [place], [place] [phone] Discharge Disposition: Home or Self Care Social [...] and heating? Not hard at all 10/14/2023 [facility] of Occupat ional Health - Occupational Stress [...] place to sleep or slept in a alf (including now)? No 10/14/2023 Sex and Gender [...] fluticasone propionate (Flonase) 50 MCG/ACT nasal spray [place] 1 (one) spray into each nostril once [...] st Contact Info) Description 07/09/2024 12:30 PM PASSEMENTERIE WORKER Office Visit [facility] - GI [address] [place] [address], [place] [phone] Twin Miller MD [address] [place] [address] [place] [address] 09/19/2024 2:00 PM CDT Office Visit [facility] - Orthopedic Surgery [address] [place] [phone] Larry Alexander MD [address] [facility] [address] [place] [address] documented as of this encounter Goals Goal Patient Goal Type Associated Problems Recent Progress Patient-Stated? Author Medication Management General On track( 023 12:04 PM CDT) Monty Still, RN Note: Expected end date: Interventions: Take all medications as prescribed Let your doctor know right away about any changes in your medications Make sure to request a refill of your medication at least one week prior to your last dose Mobility General On track( 023 12:04 PM CDT) Nita Crowder, RN Note: Expected end date: 08/05/2019 The goal is to maintain or improve your mobility at the optimum level for you. Interventions: documented as of this encounter Procedures Procedure Name Priority Date/Time Associated Diagnosis Comments PT-INR [facility] Routine 04/02/2024 11:08 AM CDT Liver [...] secondary to RAYGOZA (HCC) Nonalcoholic steatohepatitis (RAYGOZA) documented in this encounter Results * (ABNORMAL) PT-INR [facility] (04/02/2024 11:08 AM CDT) PT 17.9(H) 12.1 - 14.8 Seconds 04/02/2024 12:13 PM CDT [facility] INR 1.5 See Comment 04/02/2024 12:13 PM T [facility] Comment:The suggested therap eutic range for standard coumadin (warfarin) therapy is an INR of 2.0-3.0. For high-risk patients (Mechanical Mitral Valve Prosthesis, etc.), the suggested prophylactic therapeutic range is an INR of 2.5-3.5. Blood BLOOD SPECIMEN / Unknown Lab Venipuncture / Unknown 04/02/2024 11:08 AM CDT 04/02/2024 11:14 AM CDT Twin Miller MD LAB - COAGULAT ION ORDERABLES [facility] [address] [place] [address], [facility] [phone] * (ABNORMAL) COMPREHENSIVE METABOLIC PANEL (04/02/2024 11:08 AM CDT) BUN 30(H) 7 - 26 mg/dL 04/02/2024 12:13 PM [facility] Creatinine 1.87(H) 0.71 - 1.16 mg/dL 04/02/2024 12:13 PM [facility] Sodium 145 136 - 145 mmol/L 04/02/2024 12:13 PM [facility] Potassium 3.8 3.5 - 4.5 mmol/L 04/02/2024 12:13 PM [facility] Chloride 105 98 - 107 mmol/L 04/02/2024 12:13 PM [facility] CO2 30(H) 22 - 29 mmol/L 04/02/2024 12:13 PM [facility] Glucose 106(H) 70 - 99 mg/dL 04/02/2024 12:13 PM [facility] Calcium 9.6 8.4 - 10.2 mg/dL 04/02/2024 12:13 PM [facility] Protein Total 6.8 6.0 - 8.3 g/dL 04/02/2024 12:13 PM [facility] Albumin 3.5 3.4 - 5.0 g/dL 04/02/2024 12:13 PM [facility] Bilirubin Total 0.5 0.2 - 1.2 mg/dL 04/02/2024 12:13 PM [facility] Alkaline Phosphatase 95 40 - 150 U/L 04/02/2024 12:13 PM [facility] ALT 14 5 - 55 U/L 04/02/2024 12:13 PM [facility] AST 22 5 - 34 U/L 04/02/2024 12:13 PM [facility] Anion Gap 10 6 - 16 04/02/2024 12:13 PM [facility] BUN/Creatinine Ratio 16 7 - 23 04/02/2024 12:13 PM [facility] Osmolality Calculated 307(H) 275 - 295 mOsm/kg 04/02/2024 12:13 PM [facility] Albumin/Globulin Ratio 1.1 1.1 - 2.3 04/02/2024 12:13 PM [facility] eGFR by CKD-EPI 37(L) >=90 mL/min/1.7 3 m2 04/02/2024 12:13 PM [facility] Blood BLOOD SPECIMEN / Unknown Lab Venipuncture / Unknown 04/02/2024 11:08 AM CDT 04/02/2024 11:46 AM T Twin Miller MD LAB - CHEMISTR Y ORDERABLES [facility] [address] [place] [address], [facility] [phone] * (ABNORMAL) CBC WITH DIFFERENTIAL (04/02/2024 11:08 AM T) WBC 6.7 4.0 - 10.7 x10E9/L 04/02/2024 1:27 PM [facility] RBC Count 3.48(L) 4.30 - 5.80 x10E12/L 04/02/2024 1:27 PM [facility] Hemoglobin 10.1(L) 13.3 - 17.5 g/dL 04/02/2024 1:27 PM [facility] Hematocrit 33.6(L) 38.7 - 51.1 % 04/02/2024 1:27 PM [facility] MCV 96.6 80.0 - 98.0 fL 04/02/2024 1:27 PM [facility] MCH 29.0 26.7 - 33.6 pg 04/02/2024 1:27 PM [facility] MCHC 30.1(L) 31.7 - 36.3 g/dL 04/02/2024 1:27 PM [facility] RDW-CV 15.7(H) 11.3 - 14.8 % 04/02/2024 1:27 PM [facility] Platelet Count 120(L) 150 - 420 x10E9/L 04/02/2024 1:27 PM [facility] MPV 04/02/2024 1:27 PM [facility] Comment:Unable to report Neutrophil % 67.8 41.0 - 74.0 % 04/02/2024 1:27 PM [facility] Lymphocyte % 12.7(L) 17.0 - 47.0 % 04/02/2024 1:27 PM [facility] Monocyte % 13.0(H) 3.0 - 11.0 % 04/02/2024 1:27 PM [facility] Eosinophil % 5.7 0.0 - 7.0 % 04/02/2024 1:27 PM [facility] Basophil % 0.7 0.0 - 1.6 % 04/02/2024 1:27 PM [facility] Immature Granulocytes % 0.1 0.0 - 1.0 % 04/02/2024 1:27 PM [facility] Neutrophil Absolute 4.51 1.60 - 7.50 x10E9/L 04/02/2024 1:27 PM [facility] Lymphocyte Absolute 0.85(L) 1.00 - 4.40 x10E9/L 04/02/2024 1:27 PM [facility] Monocyte Absolute 0.87 0.15 - 1.00 x10E9/L 04/02/2024 1:27 PM [facility] Eosinophil Absolute 0.38 0.00 - 0.60 x10E9/L 04/02/2024 1:27 PM [facility] Basophil Absolute 0.05 0.00 - 0.13 x10E9/L 04/02/2024 1:27 PM [facility] Blood BLOOD SPECIMEN / Unknown Lab Venipuncture / Unknown 04/02/2024 11:08 AM CDT 04/02/2024 11:46 AM T Twin Miller MD LAB - HEMATOLO GY ORDERABLES Performing Organization Address City/[facility]/ZIP Co de Phone Number [address] [address], [facility] [phone] * ALPHA FETOPROTEIN BLOOD TUMOR MARKER (04/02/2024 11:08 AM CDT) Alpha-Fetoprote in Tumor Marker <2.0 <=8.3 ng/mL 04/02/2024 12:37 PM CDT [facility] Comment: AFP values will vary depending on testing procedure used. Results are not comparable across different methods. AFP values obtained by [facility] using an [employer] Immunoassay. Blood BLOOD SPECIMEN / Unknown Lab Venipuncture / Unknown 04/02/2024 11:08 AM CDT 04/02/2024 11:46 AM CDT Twin Miller MD LAB - CHEMISTR Y ORDERABLES Performing Organization Address City/[facility]/ZIP Co de Phone Number [address] [address], [facility] [phone] documented in this encounter Visit Diagnoses Diagnosis 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) Other chronic nonalcoholic liver disease Nonalcoholic steatohepatitis (RAYGOZA) Other chronic nonalcoholic liver disease documented in this encounter Additional Health Concerns Infection Onset Date Last Indicated Resolved Time MRSA Hx Comment:-nasal screen 09/201709/12/2017 10/17/2023 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
--- OUTSIDE RECORDS SUMMARY | 2024-05-24 23:32 | XMS_ITS | Encounter Summary ---
Author Organization [facility] Address [address] [place] [address] Care Team Providers Care Obstetrics Gyn Name Role Phone Napoleon Birmingham Primary Care Provider Ethan bridges Encounter Details Date Type Department Care Team (Latest Contact Info) Description 03/15/2024 Travel Social History Tobacco Use Types Packs/Day [...] and heating? Not hard at all 10/14/2023 [facility] [place] of Occupat ional Health - Occupational Stress [...] place to sleep or slept in a fci (including now)? No 10/14/2023 Sex and Gender [...] st Contact Info) Description 07/09/2024 12:30 PM ENERGY SYSTEMS ENGINEER Office Visit [facility] - GI [address] [place] [address], [place] [phone] Twin Miller MD [address] [place] [address] [place] [address] 09/19/2024 2:00 PM CDT Office Visit [facility] - Orthopedic Surgery [facility] [place] [phone] Larry Alexander MD [address] [place] [address] documented as of this encounter Goals Goal [...] documented as of this encounter Care Teams Obstetrics Gyn Relationship Specialty Start Date End Date Napoleon Birmingham PCP - General 10/13/23 05/14/24 documented as of this encounter
--- OUTSIDE RECORDS SUMMARY | 2024-05-24 23:32 | XMS_ITS | Encounter Summary ---
Author Organization [facility] Address [address] [facility] [place] [address] Care Team Providers Care Batching Operator Name Role Phone Cleo Funk DO Primary Care Provider +1- [phone] Encounter Details Date Type Department Care Team (Latest Contact Info) Description 05/15/2024 12:59 PM CATTLE [employer]ODUCERS - 05/15/2024 11:59 PM [facility] [[email or web address] Hospital Encounter [facility] - Orthopedics [address] [place] [phone] Larry Alexander MD [address] [place], [place] [phone] Discharge Disposition: Home or Self Care Social [...] Recorded Patient Health Questionnaire-2 Score 1 05/15/2024 [facility] of Occupat ional Health - Occupational [...] place to sleep or slept in a fdc (including now)? No 10/14/2023 Sex and Gender [...] fluticasone propionate (Flonase) 50 MCG/ACT nasal spray [place] 1 (one) spray into each nostril once [...] st Contact Info) Description 07/09/2024 12:30 PM CATTLE PRODUCERS Office Visit [facility] - GI [address] [place] [address], [facility] [place] [address] Twin Miller MD [address] [place] [address] DIV [place] [address] 09/19/2024 2:00 PM CDT Office Visit [facility] - Orthopedic Surgery [facility] [place] [address] Larry lAexander MD [address] [facility] [address] [place] [address] documented as of this encounter Goals Goal Patient Goal Type Associated Problems Recent Progress Patient-Stated? Author Medication Management General On track(03/20/2 023 12:04 PM CDT) No Monty Gnetile, RN Note: Expected end date: Interventions: Take [...] Name Priority Date/Time Associated Diagnosis Comments XR KNEE LEFT 3VW Routine 05/15/2024 1:22 PM [employer]UC[employer] Left knee pain, unspecified chronicity documented in this encounter Results * XR Knee Left 3Vw (05/15/2024 1:22 PM [employer]) Anatomical Region Laterality Modality Lower Extremity Radiographic Shama ging 05/15/2024 1:51 PM [employer] Narrative 05/15/2024 1:51 PM [employer] Procedure: XR KNEE LEFT 3VW ??Exam Date: ??05/15/2024 1:23 PM ?? 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
--- OUTSIDE RECORDS SUMMARY | 2024-05-24 23:33 | XMS_ITS | Encounter Summary ---
Author Organization [facility] Address [address] [facility] [place] [address] Care Team Providers Care Housekeeping Supervisor Name Role Phone Unknown, Provider Primary Care Provider Unavaila ble Encounter Details Date Type Department Care Team (Latest Contact Info) Description 03/21/2023 Travel Social History Tobacco Use Types Packs/Day [...] or have serious hearing difficult y? No 10/07/2022 Is person blind or have serious difficulty seein g? No 10/07/2022 Does person have serious dif ficulty walking/climbing stairs? Yes 10/07/2022 Does person have difficulty dressing/bathing? No 10/07/2022 Does person have difficulty doing errands alone? No 10/07/2022 Cognitive Status Response Date of Assessm ent Does person have difficulty concentrating/remembering/making decisions? No 10/07/2022 documented as of this encounter Plan of Treatment Upcoming Encounters Date Type Department Care Team (Late st Contact Info) Description 07/09/2024 12:30 PM CANCER PROGRAM CONSULTANT Office Visit [facility] - GI [address] [facility], [place] [address] Twin Miller MD [address] [place] [address] [place] [address] 09/19/2024 2:00 PM CDT Office Visit [facility] - Orthopedic Surgery [address] [facility] [place] [address] Larry Alexander MD [address] [facility] 280 [place] [address] documented as of this encounter Goals Goal [...] Onset Date Last Indicated Resolved Time 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 Care Teams Housekeeping Supervisor Relationship Specialty Start Date End Date Unknown, Provider PCP - General 08/23/22 10/12/23 documented as of this encounter
--- OUTSIDE RECORDS SUMMARY | 2024-05-24 23:33 | XMS_ITS | Encounter Summary ---
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) Lower extremity edema Cirrhosis of liver without ascites, unspecified hepatic cirrhosis type (HCC) Procedures US ABDOMEN LIMITED Jackelyn Licona MD [address] [place] [address] [facility] [address] [place] [address] Referral ID Status Reason Start Date Expiration Date Visits Re quested Visits Authorized [id number] Closed 08/23/2022 08/23/2023 1 1 Reason for Visit * Radiology Services (Routine) - Closed Specialty Diagnoses / Procedures Referred By Contac t Referred To Contact Ultrasound Diagnoses 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) Lower extremity edema Cirrhosis of liver without ascites, unspecified hepatic cirrhosis type (HCC) Procedures US ABDOMEN LIMITED Jackelyn Licona MD [address] [place] [address] [facility] [address] [place] [address] Referral ID Status Reason Start Date Expiration Date Visits Re quested Visits Authorized [id number] Closed 08/23/2022 08/23/2023 1 1 Encounter Details Date Type Department Care Team (Late st Contact Info) Description 03/21/2023 10:01 AM CDT - 03/21/2023 11:59 PM CDT Hospital Encounter [facility] [id number] [place] [address] Jackelyn Licona MD [address] [place] [address] Discharge Disposition: Home or Self Care Social [...] No 10/07/2022 documented as of this encounter Medications at Time of Discharge Medication Sig Dispensed Refills Start Date End Date acetaminophen (TYLENOL) 325 MG tabletIndications:Oth er cirrhosis of liver (HCC) Take 2 (two) tablets by mouth every 4 hours as needed apixaban (ELIQUIS) 5 MG tablet Take 1 [...] 1 (one) capsule by mouth once daily ferrous sulfate 325 (65 FE) MG tablet Take 1 (one) tablet by mouth daily with breakfast magnesium oxide (Mag-Ox) 400 MG tablet Take 1 (one) tablet by mouth 2 times daily metoprolol succinate XL 24hr (TOPROL XL) 50 MG tablet Take 1 (one) tablet by mouth once daily Oxygen 1 L Pyridoxine HCl (VITAMIN B-6 PO) Take 100 mg by mouth once daily roflumilast (DALIRESP) 500 MCG tablet Take 1 (one) tablet by mouth once daily spironolactone (Aldactone) 25 MG tablet Take 0.5 (one-half) tablet by mouth once daily 01/27/2021 tamsulosin (FLOMAX) 0.4 MG capsuleIndications:Ot her cirrhosis of liver (HCC) Take 1 (one) capsule by mouth at bedtime 1 02/08/2018 vitamin D3 (Cholecalciferol) 25 MCG (1000 UNITS) tablet Take 1 (one) tablet by mouth once daily albuterol (PROVENTIL;VENTOLIN) (5 MG/ML) 0.5% nebulizer solution 2.5 mg. 1 Box 11 09/04/2017 10/12/2023 benzonatate (TESSALON) 200 MG capsule Take 1 capsule by mouth 3 times daily as needed for Cough 02/15/2019 10/12/2023 camphor-menthol (Sarna/Dermasarra) 0.5-0.5 % lotion APPLY LIBERALLY TO AFFECTED AREA(S) FOUR TIMES A DAY FOR ITCHING - (EXTERNAL USE ONLY) 03/07/2023 10/12/2023 cyanocobalamin (VITAMIN B-12) 500 MCG tablet Take 1 (one) tablet by mouth once daily 11/03/2023 diclofenac sodium (Voltaren) 1 % gel APPLY 4 GM TO AFFECTED AREA(S) FOUR TIMES A DAY FOR PAIN DO NOT EXCEED MORE THAN 16 GRAMS DAILY TO ANY LOWER EXTREMITY JOINT. NOT MORE THAN 8 GRAMS DAILY TO ANY UPPER EXTREMITY JOINT. MAX 32GM/DAY OVER ALL JOINTS. (MEASURE DOSE WITH RULER ATTACHED INSIDE BOX) 01/25/2023 10/12/2023 diphenhydrAMINE (BENADRYL) 25 MG capsule Take 1 (one) capsule by mouth 2 times daily 10/12/2023 folic acid (Folvite) 1 MG tablet Take 1 (one) tablet by mouth once daily 02/11/2022 10/12/2023 gabapentin (NEURONTIN) 100 MG capsule Take 3 (three) capsules by mouth 2 times daily 10/12/2023 lidocaine (Lidoderm) 5 % patch 01/25/2023 11/03/2023 nystatin [id number] UNIT/GM cream - BACITRACIN ointment 50:50 CREA Apply to affected area 2 times daily as needed 10/12/2023 omeprazole (PriLOSEC) 40 MG capsuleIndications:Pe ptic Ulcer TAKE 1 (ONE) CAPSULE BY MOUTH 2 TIMES DAILY, BEFORE BREAKFAST AND SUPPER REASONS: PEPTIC ULCER 30 capsule 3 11/24/2022 10/12/2023 potassium chloride ER (KLOR-CON M) 20 MEQ tablet Take 1 (one) tablet by mouth once daily 11/03/2023 Skin Protectants, Misc. (BASIS FACIAL MOISTURIZER) CREAIndications:Local Dryness of Skin,eyes 1 Each by Apply externally route as needed Reasons: Dryness Confined to a Specific area of the Body, eyes 10/12/2023 Spacer/Aero-Holding Chambers ([facility]) MISC as directed 11/17/2020 10/12/2023 triamcinolone acetonide (KENALOG) 0.1 % cream Apply to affected area 2 times daily as needed Apply to rash daily as needed. 10/12/2023 documented as of this encounter Plan of Treatment Upcoming Encounters Date Type Department Care Team (Late st Contact Info) Description 07/09/2024 12:30 PM [place] Office Visit [facility] - GI [address] [facility] [place] [address] Twin Miller MD [address] [place] [address] [place] [address] 09/19/2024 2:00 PM CDT Office Visit [facility] - Orthopedic Surgery [facility] [place] [phone] Larry Alexander MD [address] [facility] [address] [place] [address] documented as of this encounter Goals Goal [...] Associated Diagnosis Comments US ABDOMEN LIMITED Routine 03/21/2023 11 :15 AM CDT 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 2.US-1 Negative. Repeat surveillance US in 6 months. 3.Cirrhosis without evidence of portal hypertension. 4.Cholelithiasis. REFERENCE: US LI-RADS categories: US Category: ??US 1 - Negative: No evidence of hepatocellular carcinoma (HCC). ??US 2 - Subthreshold: ??Observation detected that may warrant short-interval US surveillance. ??Observation<10 mm in diameter, not definitely benign. ??US 3 - Positive: ??Observation detected that may warrant multi-phase contrast-enhanced imaging. ??Observation >/= 10 mm in diameter or new thrombus in vein. Visualization Score: ??A. ??No or minimal limitations: ??Limitations, if any, are unlikely to meaningfully affect sensitivity. ??B. ??Moderate limitations: ??Limitations may obscure small masses. ??C. Severe limitations: ??Limitations significantly lower sensitivity for focal liver lesions. IBLAISE MD have personally reviewed and interpreted this examination/study. > Interpreting Provider: BLAISE BOWENS MD on 03/21/2023 11:34 AM Narrative 03/21/2023 11:34 AM CDT PROCEDURE: ??US ABDOMEN LIMITED, DATE/TIME OF EXAM: ??03/21/2023 10:01 AM, LOCATION ??[facility] INDICATION: K75.81: 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 (CMS/HCC) K74.60: 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 (CMS/HCC) R60.0: Lower extremity edema K74.60: Cirrhosis of liver without ascites, unspecified hepatic cirrhosis type (CMS/HCC) ADDITIONAL CLINICAL INFORMATION: Ordering Provider Reason For Exam: Technologist Note: Additional: COMPARISON: Multiple priors with most recent 08/23/2022 Limited abdominal ultrasound Findings Liver Visualization Score: Moderate limitations in liver visualization Liver Morphology: The liver has a coarse echotexture and nodular surface. Liver Observations: None. Main Portal Vein: Color Doppler evaluation demonstrates patency of the main portal vein. Hepatic Veins: Color Doppler evaluation demonstrates patency of the hepatic veins. Bile Ducts: The common bile duct is nondilated, measuring 7 mm. No intrahepatic or extrahepatic biliary dilation. Gallbladder: Gallstones are seen within the gallbladder without pericholecystic fluid or gallbladder wall thickening. Sonographic Maria's sign is negative. Ascites: No ascites is present. Spleen: The spleen measures 11.5 cm in length. Pancreas: The visible pancreas is normal in echogenicity. Right Kidney: The right kidney measures 11.8 cm in length. Limited views of the right kidney reveal no evidence of nephrolithiasis or hydronephrosis. ??No discrete mass identified. Procedure Note Blaise Bowens MD - 03/21/2023 PROCEDURE: US ABDOMEN LIMITED, DATE/TIME OF EXAM: 03/21/2023 10:01 AM, LOCATION [facility] INDICATION: K75.81: 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 (CMS/HCC) K74.60: 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 (CMS/HCC) R60.0: Lower extremity edema K74.60: Cirrhosis of liver without ascites, unspecified hepaticcirrhosis type (CMS/HCC) ADDITIONAL CLINICAL INFORMATION: Ordering Provider Reason For Exam: Technologist Note: Additional: COMPARISON: Multiple priors with most recent 08/23/2022 Limited abdominal ultrasound Findings Liver Visualization Score: Moderate limitations in liver visualization Liver Morphology: The liver has a coarse echotexture and nodular surface. Liver Observations: None. Main Portal Vein: Color Doppler evaluation demonstrates patency of the main portal vein. Hepatic Veins: Color Doppler evaluation demonstrates patency of the hepatic veins. Bile Ducts: The common bile duct is nondilated, measuring 7 mm. No intrahepatic or extrahepatic biliary dilation. Gallbladder: Gallstones are seen within the gallbladder without pericholecystic fluidor gallbladder wall thickening. Sonographic Maria's sign is negative. Ascites: No ascites is present. Spleen: The spleen measures 11.5 cm in length. Pancreas: The visible pancreas is normal in echogenicity. Right Kidney: The right kidney measures 11.8 cm in length. Limited views of the right kidney reveal no evidence of nephrolithiasis or hydronephrosis. No discrete mass identified. Impression: 1.Liver Visualization Score A: No or minimal limitations. 2.US-1 Negative. Repeat surveillance US in 6 months. 3.Cirrhosis without evidence of portal hypertension. 4.Cholelithiasis. REFERENCE: US LI-RADS categories: US Category: US 1 - Negative: No evidence of hepatocellular carcinoma (HCC). US 2 - Subthreshold: Observation detected that may warrant short-interval US surveillance. Observation<10 mm in diameter, not definitely benign. US 3 - Positive: Observation detected that may warrant multi-phase contrast-enhanced imaging. Observation >/= 10 mm in diameter or new thrombus in vein. Visualization Score: A. No or minimal limitations: Limitations, if any, are unlikely to meaningfully affect sensitivity. B. Moderate limitations: Limitations may obscure small masses. C. Severe limitations: Limitations significantly lower sensitivityfor focal liver lesions. I, BLAISE BOWENS MD have personally reviewed and interpreted this examination/study. 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
--- OUTSIDE RECORDS SUMMARY | 2024-05-24 23:33 | XMS_ITS | Encounter Summary ---
Author Organization [facility] Address [address] [place] [address] Care Team Providers Care Receiver Dispatcher Name Role Phone Unknown, Provider Primary Care Provider Unavaila Napoleon Cantu Primary Care Provider Unavailabl e Reason for Visit * Auth/Cert (Routine) Specialty Diagnoses / Procedures Referred By Contac t Referred To Contact Diagnoses Sepsis Referral ID Status Reason Start Date Expiration Date Visits Re quested Visits Authorized [id number] 1 1 Encounter Details Date Type Department Care Team (Latest Contact Info) Description 10/12/2023 4:19 AM CDT - 11/03/2023 2:43 PM CDT Hospital Encounter [facility] Ortho Med Surg [address] [place], [place] [id number] Aaron Hook, [address] [place] [id number] Omi Fortune MD [address] [place] [address] Jayme Rodriguez MD [address] [place] [address] Ronna Barber MD [address] [place], [place] [id number] Constantino Alvarez MD [address] [place] [address] Dipak Padilla MD [address] [facility] [address] [place] [address] Ariel Martinez MD [address] [facility] [place] [id number] Infectious Disease Discharge Disposition: Nursing Home Facility Social History Tobacco Use Types Packs/Day Years [...] and heating? Not hard at all 10/14/2023 [place] [facility] - Occupational Stress [...] Mass Index 34.19 10/12/2023 5:07 AM CDT documented in this encounter Functional Status Functional Status Response [...] No 10/14/2023 documented as of this encounter Discharge Summaries * Ariel Cornell MD - 11/03/2023 12:18 PM CDT HOSPITALIST DISCHARGE SUMMARY NAME: José Miguel Keys : 1950 DATE OF ADMISSION: 10/12/2023 DATE OF DISCHARGE: 11/03/2023 FINAL DIAGNOSES: Include all new and active diagnoses. Sepsis, s/p ceftriaxone, on doxycyclline ppx Left thigh Cellulitis, resolved Hyper natremia resolved Acute respiratory failure, at baseline o2 requirement currently DISCHARGE DESTINATION: alf facility FOLLOW UP PLAN: Include list of active issues: Next steps Testing & Referrals Scheduled: Testing & Referrals TBD: Timing Provider PCP, pulmonology PENDING TEST RESULTS: INCIDENTAL FINDINGS REQUIRING FOLLOW UP: READMISSION RISK SCORE: 19+: high 30 day readmission risk 0-18: low-moderate 30 day readmission risk 16 at 12:18 PM 11/03/2023. Secondary/Resolved/Significant Prior Diagnoses: PRESENTING HISTORY: Per H& P : Patient José Miguel Keys is a 72 year old male with a history of atrial fibrillation, CHF, COPD, CKD,previous DVT, VALENTINA on BiPAP at night who was transferred to our facility secondary to sepsis of unknown origin. Patient presented to outside facility with complaints of shortness a breath that started approximately one week ago. He had been having an increased cough and sputum production since that time. He developed left leg pain and rash yesterday. Today he had fatigue and vomiting which prompted his visitto the outside ED. Lab work at the outside facility revealed WBCs 21.5, hemoglobin 13.0, hematocrit 42.0, platelets 115, PT 17.2, INR 1.3, PTT 30.4, sodium 138, potassium 4.6, chloride 102, CO2 28, BUN 33, creatinine 2.0 increased from a baseline of around 1.6, lactic acid 4.0 which did improve to 2.[address] scan at the outside facility showed gallbladder distention with gallstones in the gallbladder neck which could represent distension from fasting, acute cholecystitis or changes related to pancreatic inflammatory changes seen with pancreatitis. Patient was hypotensive and was started on pressors. Patient developed respiratory distress and didrequire intubation and mechanical ventilation prior to transfer to our facility. On arrival to our facility patient is intubated and sedated. HOSPITAL COURSE: (include consults and procedure details) Left thigh cellulitis looks to be improving almost erythema has gone CT scan showed no soft tissue gas and no abscess Surgery and Infectious Disease managing Group G strep bacteremia Secondary to above S/p ceftriaxone until 10/23 - now on oral doxycycline PPx Hypernatremia Resolved Difficulty swallowing Likely secondary to altered mental status. - NG removed 10/20 started on diet Acute on chronic kidney disease likely ATN in the settings of shock also received contrast Improving - cabral removed 10/25 - spontaneously voiding - monitor closely Acute on chronic hypoxemic respiratory failure Extubated October 11 Currently on nasal cannula -he is oxygen 2 liters/minute, saturating 90% which is at baseline - He is at his baseline o2 requirement History of CHF monitor fluid status - continue losartan 25 mg daily - continue spironolactone 12.5 mg - consider SGLT2i at discharge - History of atrial fibrillation - changing to lopressor to Toprol XL 50 mg daily - Eliquis - 14 runs of V-tach noticed on 11/01/2023 -magnesium supplement as per Cardiology -continue monitoring telemetry Right elbow pain - No Dislocation - x-ray assessment without abnormality - Superficial clot - Gout - solumedrol 40 mg x given 10/26 - colchicine 0.6 mg Q 4 hours x 2 doses given on 10/26 - resolved, suspect gout was etiology Constipation - resolved - continue senna/colace every other day Anxiety - atarax 25 mg QID PRN anxiety Septic shock presented on admission IV fluids, IV antibiotics Resolved 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 Suspect progressive left basilar infiltrate and small effusion but without consolidation > Interpreting Provider: Alberto Atwood MD on 11/02/2023 4:40 PM XR CHEST 1VW PORTABLE Result Date: 10/31/2023 IMPRESSION: Stable chest radiograph with retrocardiac airspace disease and trace left pleural effusion > Interpreting Provider: Mireya Denson MD on 10/31/2023 12:57 PM ADDITIONAL PERTINENT STUDIES: RECENT/NOTABLE LABS: include pertinent positives Recent Labs Component Name 11/03/23 0417 SODIUM 138 POTASSIUM 4.5 CHLORIDE 107 CO2 25 BUN 25 CREATININE 1.59* EGFR 45* Recent Labs Component Name 11/03/23416 WBC 5.9 HGB 11.1* HCT 36.0* PLTCOUNT 186 Recent Labs Component Name 10/12/23 0503 03/08/23 1349 08/10/22 1259 INR 1.2* 1.0 1.1 VITALS/MENTAL STATUS/NOTIBLE EXAM FINDINGS Most recent weight: Weight: 111.1 kg (245 lb) (10/14/23 0643) BP 126/55 (BP Location: Left arm, Patient Position: Lying) Pulse 81 Temp 97.6 ??F (36.4 ??C) (Oral) Resp 18 Ht 1.803 m (5' 10.98 ) Wt 111.1 kg (245 lb) SpO2 100% DISCHARGE MEDICATIONS AND ALLERGIES This list of medications is preliminary and tentative: please see the Patient Discharge Instructions for patients discharged home or the Facility Transfer Order for the final and accurate medication list. Current Discharge Medication List START taking these medications Instructions Authorizing Provider doxycycline monohydrate 100 MG capsule Take 1 (one) capsule by mouth once daily Ariel Cornell MD hydrOXYzine HCl 25 MG tablet Commonly known as: Atarax Take 1 (one) tablet by mouth 2 times daily for 30 days Ariel Cornell MD lactobacillus Pack granules Take 1 (one) packet by mouth 3 times daily Ariel Cornell MD levalbuterol 1.25 MG/0.5ML nebulizer solution Commonly known as: Xopenex Inhale 0.5 mL by mouth every 6 hours Ariel Cornell MD losartan 25 MG tablet Commonly known as: Cozaar Take 1 (one) tablet by mouth once daily Reasons: High Blood Pressure Disorder Ariel Cornell MD rifAXIMin 550 MG tablet Commonly known as: Xifaxan Take 1 (one) tablet by mouth 2 times daily Ariel Cornell MD sennosides 8.6 MG tablet Commonly known as: Senokot Take 1 (one) tablet by mouth 2 times daily as needed for Constipation Ariel Cornell MD venlafaxine 37.5 MG tablet Commonly known as: Effexor Take 1 (one) tablet by mouth once daily for 30 days Ariel Cornell MD CONTINUE taking these medications which have NOT CHANGED Instructions Authorizing Provider acetaminophen 325 MG tablet Commonly known as: Tylenol Take 2 (two) tablets by mouth every 4 hours as needed albuterol HFA 108 (90 Base) MCG/ACT inhaler Commonly known as: Proventil; Ventolin; Proair Inhale 2 (two) puffs by mouth as needed for Shortness of Breath albuterol-ipratropium 0.5-2.5 (3) MG/3ML nebulizer solution Commonly known as: Duo-Neb Inhale 3 mL by mouth 4 times daily apixaban 5 MG tablet Commonly known as: Eliquis Take 1 (one) tablet by mouth 2 times daily aspirin EC 81 MG tablet Commonly known as: Ecotrin Take 1 (one) tablet by mouth once daily baclofen 10 MG tablet Commonly known as: Lioresal Take 1 (one) tablet by mouth at bedtime May cause drowsiness. Jung Aerosphere 160-9-4.8 MCG/ACT inhaler Generic drug: xyjoywt-mjgzphzybis-favisptufv Inhale 2 (two) puffs by mouth 2 times daily bumetanide 0.5 MG tablet Commonly known as: Bumex Take 1 (one) tablet by mouth 2 times daily doxycycline hyclate 100 MG capsule Commonly known as: Vibramycin Take 1 (one) capsule by mouth once daily ferrous sulfate 325 (65 FE) MG tablet Take 1 (one) tablet by mouth daily with breakfast fluticasone propionate 50 MCG/ACT nasal spray Commonly known as: Flonase Sycamore 1 (one) spray into each nostril once daily folic acid 400 MCG tablet Take 1 (one) tablet by mouth once daily magnesium oxide 400 MG tablet Commonly known as: Mag-Ox Take 1 (one) tablet by mouth 2 times daily metoprolol succinate XL 24hr 50 MG tablet Commonly known as: Toprol XL Take 1 (one) tablet by mouth once daily omeprazole 40 MG capsule Commonly known as: PriLOSEC Take 1 (one) capsule by mouth daily before breakfast Other (Patient uses variety of topicals...Eucerin, triamcinolone, hydrocortisone) Oxygen 1 L roflumilast 500 MCG tablet Commonly known as: Daliresp Take 1 (one) tablet by mouth once daily spironolactone 25 MG tablet Commonly known as: Aldactone Take 0.5 (one-half) tablet by mouth once daily tamsulosin 0.4 MG capsule Commonly known as: Flomax Take 1 (one) capsule by mouth at bedtime VITAMIN B-6 PO Take 100 mg by mouth once daily vitamin D3 25 MCG (1000 UNITS) tablet Commonly known as: Cholecalciferol Take 1 (one) tablet by mouth once daily ZYRTEC PO Take 10 mg by mouth daily with breakfast STOP taking these medications cyanocobalamin 500 MCG tablet Commonly known as: Vitamin B-12 DULoxetine 30 MG capsule Commonly known as: Cymbalta gabapentin 300 MG capsule Commonly known as: Neurontin lidocaine 5 % patch Commonly known as: Lidoderm potassium chloride ER 20 MEQ tablet Commonly known as: Klor-Con M ALLERGIES: 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 Oxygen Saturation PRN Distress Oxygen Saturation - Check PRN for respiratory distress or change in patients condition per director business intelligence. Notify Physician SBP greater than 180 SBP less than 90 DBP greater than 100 DBP less than 50 Pulse greater than 110 Pulse less than 50 Resp greater than 28 Resp less than 12 Temp greater than 100.5 F For a blood sugar reading higher than 350 For a blood sugar reading less than 60 Notify Physician if Patient's weight increases or decreases by 3 lbs. in one day or 3 lbs. in one week. Follow up with Primary Care Provider (PCP) Our records show your Primary Care Provider (PCP) is Napoleon Birmingham. Follow Up Instructions for Patient: Within 5 Days from Discharge IF HYPOGLYCEMIC, UNRESPONSIVE AND UNABLE TO TAKE BY MOUTH ADMINISTER GLUCAGON 1 mg IM x 1 Recheck blood glucose and assess clinical status in 15 minutes and repeat Glucagon as needed. Must notify physician immediately after use. IF HYPOGLYCEMIC (LESS THAN 70) AND PATIENT IS ABLE TO SWALLOW ADMINISTER DEXTROSE 40% ORAL GEL PO x 1 Recheck blood sugar in 15 minutes, may repeat PRN if blood sugar remains less than 70. Must notify physician immediately after use. Influenza Vaccination May have annual Influenza vaccine unless contraindicated. Generic equivalent Drugs Generic equivalent drugs may be substituted by pharmacy unless otherwise indicated. TB Skin testing May have 2 step TB Skin test unless contraindicated or history of positive TB skin test. Diabetic diet --Limit your carbohydrates to 60-75g Carbohydrates per meal. Modified consistency - mechanical soft Activity as tolerated Rest today, and increase activity level tomorrow as tolerated. Oxygen instructions Oxygen at 2 L/minute by nasal cannula continuously. Follow up with provider Follow Up Instructions for Patient: Other (See Comment) As per the schedule set up by the provider. Nursing Home Facility (SNF) Admission José Miguel is to be admitted to a Nursing Home Facility. José Miguel has been examined and does not have any emergency medical conditions. Physician Certification of Need I certify that post hospital Nursing Home Facility services are required to be given on an inpatient basis because of the patient's need for group home facility care on a continuous basis forthe condition(s) for which José Miguel was receiving in-hospital services prior to transfer to a skillednursing facility. The orders on this document are my transfer orders to be active at the new facility after discharge from the Hospital. The orders replace any other lists of orders or medications. Electronically signed by Ariel Cornell MD 11/02/2023 11:22 AM ISOLATION PRECAUTIONS No active isolations. 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 OTHER PATIENT DIAGNOSES PRESENT AT THE TIME OF ADMISSION Fluid and electrolyte disorder: hyperkalemia requiring further monitoring Thrombocytopenia Thrombocytopenia requiring further monitoring Hypoalbuminemia requiring further monitoring Chronic kidney disease: Chronic Kidney Disease, Unspecified Cardiac arrhythmia: Atrial fibrillation, unspecified Congestive Heart Failure Shock: Severe sepsis with shock Obesity Patient receiving mechanical ventilation I spent 35 minutes in addition to direct patient care summarizing this patient's hospital stay, reviewing and updating the inpatient problem list, reviewing discharge medications, instructions, discussing discharge care planand discharge follow up labs/studies/doctor visits with the patient and or POA/family. Ariel Cornell MD documented in this encounter Medications at Time [...] fluticasone propionate (Flonase) 50 MCG/ACT nasal spray Sycamore 1 (one) spray into each nostril once daily folic acid 400 MCG tablet Take 1 (one) tablet by mouth once daily hydrOXYzine HCl (Atarax) 25 MG tablet Take 1 (one) tablet by mouth 2 times daily for 30 days 11/02/2023 lactobacillus (Lactinex) PACK granules Take 1 (one) [...] capsule by mouth at bedtime 1 02/08/2018 venlafaxine (Effexor) 37.5 MG tablet Take 1 (one) tablet by mouth once daily for 30 days 11/03/2023 vitamin D3 (Cholecalciferol) 25 MCG (1000 UNITS) tablet Take 1 (one) tablet by mouth once daily documented as of this encounter Progress Notes * Alfonso Retana, OT - 11/03/2023 12:48 PM CDT Occupational Therapy Treatment Summary Chart reviewed for diagnosis and medical systems review. Nursing consented for OT. Explained purpose of OT and patient consented to participate in therapy. RECOMMENDATIONS/PLAN: Discharge Equipment Recommendations: To Be Determined OT Discharge Recommendations: Patient would benefit from multidisciplinary therapy This recommendation is made due to ongoing OT functional needs: address care for self in the home;address functional deficits;patient to return to prior level of care Recommended Transportation Method: Stretcher/Ambulance PPE worn by staff: gloves PPE worn by patient: gown - patient, clean;socks - clean AM-PAC Daily Activity score for this patient is Daily Activity Raw Score:: 12 Precautions: Fall risk, O2 @ 2lt pnc SUBJECTIVE: Consents to therapy Psychosocial: Patient Behaviors: Cooperative Pt's goal for therapy: To return to PLOF OBJECTIVE: Cognition: Orientation Level: Oriented X4 Level of Consciousness-Adult: Alert Cognition: Follows Commands-Consistent Perception: Initiation: Appears intact Motor Planning: Appears intact ADL Tasks: Feeding: Stand By Assist Oral Facial Hygiene: Minimal Assistance Bathing: Total Assistance Upper Body Dressing: Moderate Assistance Lower Body Dressing: Total Assistance Toileting: Total Assistance RUE Assessment: AROM - Right Upper Extremity: Within Functional Limits Strength - Right Upper Extremity: Within Functional Limits LUE Assessment: AROM - Left Upper Extremity: Within Functional Limits Strength - Left Upper Extremity: Within Functional Limits Activity Tolerance: Activity Tolerance: Requires rest breaks Oxygen Therapy: O2 L/M: 2 $ O2 DEVICE: Nasal Cannula $ ASSESSMENT: Pt in supine at start of session and agreeable to therapy Pt completed grooming task insupine with HOB raised with Min A Pt completed B UE AROM for 3 sets of 10 reps in vertical and horizontal planes Instructed on deep breathing and pacing activity to ensure maintain O2 saturation @ > 90% Pt tolerated well Pt will need assist with self care post dc and will benefit from additionaltherapies to support return to PLOF Call light and phone in reach with bed alarm activated. All lines, monitors, IV's, equipment in place and intact pre and post visit. RN notified of patient's performance/location end of session. Mobility Status-White Board Mobility Status Communication-White Board Updated?: Yes Please refer to the Filed Flowsheet OT Treatment for further details. Refer to care plan for goals. If this is the last Occupational Therapy visit, this serves as the discharge summary. OT x [phone] * James Luciano - 11/03/2023 12:05 PM CDT James Luciano 11/03/2023 12:05 PM 11/03/23 1200 Visit Type Assessment Date 11/03/23 Thermodynamics Professor Visiting Patient Mustapha Pastoral Jesus Manuel Reason for Visit Follow Up Pastoral Care Visit Type(s) Follow Up Encounter Type Patient Interventions Pastoral Care Conversation Plan/Outcome Plan Will Follow as Needed * Radha Malone MSW - 11/03/2023 10:39 AM CDT Facility Transfer Note Final MD anticipates discharge today. [facility] able to accommodate once pt with discharge orders written, Covid test done and not detected (done), and pt with a recent BM. Once above completed nrsg to please arrange own ambulance and notify pts spouse of time arranged : Trinity Keys @[phone]. [facility] hs no official cut off time,however, please arrange as soon as able. Ss assisted nrsg staff with completion of pcs/ amb form and faxed to [facility] with face sheet. Level of Care: Skilled Rehab Payor Source: Managed Care Plan Facility Name: (include name of person confirming admission): per pt/fam request pt to transfer to [facility]. Per fac admissions Ricardo pt to go to room 322. Ss spke with Ricardo and she is aware MD anticipates discharge today/ nrsg contact info provided if fac with needs prior to nrsg f/u. Per Ricardo pt ok to transfer. NH Made Aware of Special Needs (if applicable): N/A RN Call Report to: [phone] RN Fax D/C Orders to: [phone] Transportation: :Amb recommended by therapy. Transport recommendations appreciated. -for ambulance transport @ discharge, Staff will need to arrange scad @ the [facility] transfer line # which is [phone] option 6, for transfer. Certificate of Medical Necessity rationale: refer to completed amb form. Date/time of transfer: MD anticipates today per updates. MD to see and advise. Accepting MD: Dr Chai Johnston- please call fac. if MD contact info needed. Completed and Signed [id number] (if applicable): n/a Family/Other Notified of Transfer (name/phone): ss updated pts spouse spouse to advise pt. Per spouse request pt to transfer to [facility] and nrs. Pt/fam ok with discharge when MD with orders. Authorization Skilled Care: Authorization for Nursing Home Facility: Per Insurance auth approved. [id number] Approved 11/01 - 11/14/2023 ([employer]) Authorization for Transportation:Authorization for Transportation: per no Auth required for ambulance per insurance. (pt has [employer]) Verified Qualifying Stay(Skilled Only): NOT APPLICABLE / pt has [employer] and insurance approved snf. Patient discharged to SNF under Medicare SNF 3-day waiver? No Comments: @ discharge nrsg to please send fac orders,chart and discharge summary . CHRIS Garcia ext. [phone]. * Aneta Whittington MD - 11/03/2023 10:32 AM CDT Cardiology Progress Note Admit Date: 10/12/2023 4:19 AM Hospital Day: 22 Chief complaint: SOB, cough, vomiting, fatigue, left thigh pain Symptoms No new complaints Rise in creatinine today noted Tele: CAF with PVC's. Data Vitals: 11/03/23 0410 11/03/23 0430 11/03/23 0813 11/03/23 0927 BP: 118/73 126/55 Pulse: 81 76 81 Resp: 18 16 18 Temp: 98.1 ??F (36.7 ??C) 97.6 ??F (36.4 ??C) SpO2: 98% 98% 99% 100% Weight: Height: Intake/Output Summary (Last 24 hours) at 11/03/2023 1032 Last data filed at 11/03/2023 1029 Gross per 24 hour Intake 840 ml Output 600 ml Net 240 ml Exam- reviewed/unchanged General appearance: elderly M alert, cooperative, no distress Chest: lungs clear Cardiovascular: irregularly irregular rate and rhythm, variable S1 , no murmur Abdomen: soft without mass, non-tender, with normal bowel sounds Extremities: trace LLE edema, left pretibial erythema My review of labs, imaging, notes and other tests is significant for Recent Labs Component Name 11/03/23 0417 11/02/23 0810 11/01/23 0502 WBC 5.9 7.7 9.4 HGB 11.1* 10.6* 10.9* HCT 36.0* 34.3* 35.5* PLTCOUNT 186 171 202 Recent Labs Component Name 11/03/23 0417 11/02/23 0810 10/30/23 0435 SODIUM 138 139 133* POTASSIUM 4.5 4.4 4.1 CHLORIDE 107 108* 107 CO2 25 23 20* BUN 25 22 22 CREATININE 1.59* 1.44* 1.06 GLUCOSE 92 94 97 CALCIUM 9.3 8.9 9.0 Recent Labs Component Name 08/20/20 0000 07/24/17 0508 04/23/17 1103 TSH 1.27 2.518 1.64 Magnesium Date Value Ref Range Status 11/02/2023 1.9 1.6 - 2.6 mg/dL Final Medications apixaban (Eliquis) tablet 5 mg, Oral, BID doxycycline monohydrate capsule 100 mg, Oral, QDAY insulin aspart (NovoLOG) pen 0-12 Units, Subcutaneous, 4X/day - AC & HS lactobacillus (Lactinex) granules 1 packet, Oral, TID levalbuterol (Xopenex) nebulizer solution 1.25 mg, Inhalation, q6h lidocaine (Lidoderm) 5 % patch 1 patch, Transdermal, q24h losartan (Cozaar) tablet 25 mg, Oral, QDAY metoprolol succinate XL 24hr (Toprol XL) tablet 50 mg, Oral, QDAY pantoprazole EC (Protonix) tablet 40 mg, Oral, QDAY rifAXIMin (Xifaxan) tablet 550 mg, Oral, BID senna-docusate (Senokot-S) tablet 1 tablet, Oral, q48h spironolactone (Aldactone) tablet 12.5 mg, Oral, QDAY venlafaxine (Effexor) tablet 37.5 mg, Oral, QDAY Assessment Septicemia, GBS bacteremia, LLE cellulitis Chronic a-fib on Eliquis Run of NSVT Prior PE/DVT MICHAUD RADHA on CKD Dilated CM; HFmrEF, 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 Continue Eliquis Changed Lopressor to Toprol XL 50 mg QD Hold Losartan 25 mg, Spironolactone 12.5 mg today, monitor renal function Maintain electrolytes Discussed with RN Glendy Whittington MD 11/03/2023 * Tiffany Fortune MD - 11/03/2023 8:48 AM CDT Admit Date: 10/12/2023 4:19 AM Hospital Day: 22 Follow Up Acute respiratory failure, AMS New Symptoms Patient awake, denies chest pain, chest tightness, and claims shortness of breath has decreased. Data Vitals: 11/03/23 0302 11/03/23 0410 11/03/23 0430 11/03/23 0813 BP: 118/73 126/55 Pulse: 73 81 76 Resp: 18 18 16 Temp: 98.1 ??F (36.7 ??C) 97.6 ??F (36.4 ??C) SpO2: 98% 98% 99% Weight: Height: Temp (30hrs) Max:98.7 ??F (37.1 ??C) Intake/Output Summary (Last 24 hours) at 11/03/2023 0848 Last data filed at 11/03/2023 0636 Gross per 24 hour Intake 600 ml Output 600 ml Net 0 ml Medications have been reviewed Exam General appearance: no distress HEENT: Grossly unremarkable Heart: regular rhythm, normal S1 and S2, Lungs: Clear Abdomen: soft , NT Extremities: + edema Neuro: No focal deficits. Recent Labs Component Name 11/03/23 0417 11/02/23 0810 11/01/23 0502 WBC 5.9 7.7 9.4 HGB 11.1* 10.6* 10.9* HCT 36.0* 34.3* 35.5* PLTCOUNT 186 171 202 Recent Labs Component Name 11/03/23 0417 11/02/23 0810 10/30/23 0435 03/08/23 1347 08/23/22 2024 02/09/22 0921 08/03/21 1025 01/09/21 1055 09/05/20 1325 02/03/19 0106 09/19/17 0243 09/18/17 0003 SODIUM 138 139 133* - - - 139 137 140 - - - NA - - - - 141 - - - - - 138 140 POTASSIUM 4.5 4.4 4.1 - 4.6* - 4.7 4.4 4.2 - 4.9* 3.4* CHLORIDE 107 108* 107 - - - 102 102 103 - - - CO2 25 23 20* - 26 - 27 26 28 - 34* 35* BUN 25 22 22 - 26 - 41* 50* 27* - 26 25 CREATININE 1.59* 1.44* 1.06 - 1.60* - 1.89* 2.07* 1.46* - 0.6 0.6 GLUCOSE 92 94 97 - 113 - 124* 144* 109* - 153* 135* CALCIUM 9.3 8.9 9.0 - 10.3* - 9.6 9.7 9.9 - 9.1 9.0 EGFR 45* 51* 74* - 45* - 35* 31* 48* - >60 >60 EGFRAFR - - - - - - 40* 36* 55* - - - - = values in this interval not displayed. @ Recent Labs Component Name 11/02/23 1623 10/17/23 2117 10/17/23 1434 10/17/23 0811 10/17/23 0420 10/12/23 0508 09/10/17 0557 09/09/17 0841 09/09/17 0422 FIO2 - - 30.0 40.0 40.0 - 40.0 100.0 100.0 PH 7.26* 7.39 7.45 7.32* 7.32* - 7.45 7.51* 7.41 PCO2 59* 57* 48* 61* 61* - 44 38 45 BE -1.7 7.8* 8.2* 3.8* 3.9* - 5.4* 5.7* 2.4* HCO3 - - - - - - 30.0* 29.2* 27.4* PO2 133* 135* 86 146* 110* - 80 274* 65* O2SAT 100 100 99 99 99 - - - - [id number] 26.5* 34.5* 33.4* 31.4* 31.4* - - - - - = values in this interval not displayed. Assessment/Plan: Acute hypercapnic respiratory failure: Patient is currently on home BiPAP . BiPAP at home with settings of IPAP of 18 and EPAP of 14 cm water pressure. Significant improvement with resolution of respiratory acidosis but has chronic hypercapnia. On 2L NC during the day. Wean oxygen down to room air-keep saturation more than 90 percent Altered mental status: Resolved. Presumed to be secondary to hypercapnic respiratory failure. CT Head without acute pathology. EEG ok. LFT ok, Ammonia ok, on Rifaximin empirically, off Lactulose Bilateral pleural effusion with attendant atelectasis: CXR 10/31/2023 shows mild pulmonary vascular congestion , Clinically better post Lasix x1 dose Hypernatremia presumably secondary to diuresis. Resolved. Follow [facility] Nephrology is following. Mild azotemia secondary to diuresis Group G Streptococcus bacteremia per blood cultures at outside facility: Patient has completed Ceftriaxone , on doxycycline- For chronic prophylaxis? Id is following patient Excessive narcotic use during this hospitalization: Patient required Narcan drip initially Anasarca during the hospitalization: Echocardiogram showed EF of 45 percent, patient is slightly more fluid overloaded specially per chest x-ray and clinically. BNP slightly elevated. Received 1 doseof Lasix 10/31/2023 - clinically better History of atrial fibrillation: Patient is on beta-fe and Eliquis Code status: Full * Monisha Eamnuel), DONTAE Benavides - 11/03/2023 8:17 AM CDT Care Coordination Progress Note Anticipated level of care at discharge: Care Home - Skilled Facility, Home Health Care Comment: see progress sect for all snf referrals made: Anticipated level of care provider: None: Anticipated Discharge Date: 11/02/23: Discharge Plan: discharge to SNF in [facility] pending insurance auth. ID#[id number], See SW notes for discharge details UPDATED 1013 Insurance auth approved. [id number] Approved 11/01 - 11/14/2023 Orientation Level: Oriented X4: Family Support (Name and Phone): Extended Emergency Contact Information Primary Emergency Contact: Trinity Keys Address: [address] [place] [address] [place] [address] [facility] Mobile Relation: Spouse City Manager needed? No Transportation at Discharge: Ambulance: READMISSION RISK SCORE is 16 at 8:17 AM 11/03/2023.: Name: Makayla Echavarria RN * Christina Orta RCP - 11/02/2023 8:42 PM CDT Problem: Impaired Gas Exchange Goal: Resp rate/effort will be within specified limits Description: To maintain oxygen within normal parameters. RT to monitor. Outcome: Progressing José Miguel is currently on home CPAP with a 3 lpm bleed in oxygen saturation is 96% at this time. José Miguel wears oxygen at home 2 lpm via nasal cannula. He is on scheduled breathing treatments q6 hr. He isto maintain oxygenation parameters within normal limits. RT to monitor. * Edwina Babcock, PT - 11/02/2023 4:02 PM CDT Physical Therapy Treatment Summary Chart review completed. Nursing consented for PT. Explained purpose of PT and patient consented to participate in therapy. RECOMMENDATIONS/PLAN: continue with skilled PT per POC Discharge Equipment Recommendations: To Be Determined PT Discharge Recommendations: Patient would benefit from multidisciplinary therapy This recommendation is made due to ongoing PT functional needs: address functional deficits;patientto return to prior level of care;patient is motivated and actively participating in therapy;patienthas ability to improve with skilled therapy intervention Recommended Transportation Method: Stretcher/Ambulance PPE worn by staff: gloves;mask - procedural PPE worn by patient: gown - patient, clean;socks - clean AM-PAC Basic mobility score for this patient is Mobility Raw Score:: 12 SUBJECTIVE: Subjective: consents Patient's Primary Concern: agreeable to get to chair Patient's Goal for the Day: agreeable to get to chair Pain Assessment: Pain Location #1 Pain Scale/Observation: Numeric (0-10) Pain Rating Score #1: 0 Pain Location : Arm;Hand;Wrist Pain Orientation: Right OBJECTIVE: Cognition: Orientation Level: Oriented X4 Level of Consciousness-Adult: Alert Participation: Active Participation Precautions: fall, skin, O2, purewick Bed Mobility: Rolling: Activity Does Not Occur Supine to Sit: Moderate Assistance Sit to Supine: Activity Does Not Occur Transfers: Sit to Stand: Moderate Assistance (CGA of 2nd for safety) Stand to Sit: Moderate Assistance (CGA of 2nd for safety) Bed to Chair: Moderate Assistance to Left (CGA of 2nd for safety) Type of Transfer: Stand Pivot Transfer Toilet Transfers: Other (Comments) Transfer Device: Gait belt;Walker-2 Wheeled Mobility: Distance Ambulated (ft): (few steps for pivot transfer) Ambulation: Assistive Device: Gait Belt;Walker-2 Wheeled Ambulation: Level of Assistance: Moderate Assistance;Requires Verbal Cues for Safety;Requires Physical Cues for Safety;Requires Verbal Cues for Technique;Requires Physical Cues for Technique (CGA of 2nd for safety) Ambulation: Gait Deviations: Base of Support - Decreased;Maira - Decreased;Heel Strike - Decreased;Increased Trunk Flexion;Increased Weight Bearing through Upper Extremity;Push Off - Decreased;StepLength - Decreased Weight Bearing Status-LLE: Weight Bearing as Tolerated Weight Bearing Status-RLE: Weight Bearing as Tolerated Weight Bearing Status-LUE: Weight Bearing as Tolerated Weight Bearing Status-RUE: Weight Bearing as Tolerated Activity Tolerance: Activity Tolerance: Requires rest breaks Vital signs: SpO2 fluctuated; primarily stayed >90% but would occasionally quickly dip to 76-85%but recover within a few seconds. Patient reported 7-8/10 shortness of breath even when SpO2 in 90son 3L. ASSESSMENT: Pt presented in bed and agreeable to therapy. He is A&Ox4 and denies pain. He reports not feeling too well and SOB. See notes above regarding SpO2 during session. Patient requires modA for transfers. He completed a stand pivot transfer using a 2ww to the recliner. Session ended with patient in recliner, legs elevated, and all needs met. Call light and phone in reach with chair alarm activated. All lines, monitors, IV's, equipment in place and intact pre and post visit. Pt educated in PT plan of care, fall precautions, and benefits of OOB activity. RNLonny, notified of patient's performance/location end of session. Williams, Manager Banking, present to assist throughout the session. Please refer to the Filed Flowsheet for further details. Refer to Plan of Care for PT goals. If this is the last Physical Therapy visit, this note serves as the discharge summary. [id number] PT * Alfonso Retana, OT - 11/02/2023 1:37 PM CDT Occupational Therapy Treatment Summary Chart reviewed for diagnosis and medical systems review. Nursing consented for OT. Explained purpose of OT and patient consented to participate in therapy. RECOMMENDATIONS/PLAN: Discharge Equipment Recommendations: To Be Determined OT Discharge Recommendations: Patient would benefit from multidisciplinary therapy This recommendation is made due to ongoing OT functional needs: address care for self in the home;address functional deficits;patient to return to prior level of care Recommended Transportation Method: Stretcher/Ambulance PPE worn by staff: gloves PPE worn by patient: gown - disposable;socks - clean AM-PAC Daily Activity score for this patient is Daily Activity Raw Score:: 14 Precautions:Fall risk, O2 @ 3lt pnc SUBJECTIVE: Consents to therapy Psychosocial: Patient Behaviors: Cooperative Pt's goal for therapy: To return to PLOF OBJECTIVE: Cognition: Orientation Level: Oriented X4 Level of Consciousness-Adult: Alert Cognition: Follows Commands-Consistent Perception: Initiation: Appears intact Motor Planning: Appears intact ADL Tasks: Feeding: Stand By Assist Oral Facial Hygiene: Moderate Assistance Bathing: Maximal Assistance Upper Body Dressing: Moderate Assistance Lower Body Dressing: Maximal Assistance Toileting: Maximal Assistance RUE Assessment: AROM - Right Upper Extremity: Within Functional Limits Strength - Right Upper Extremity: Within Functional Limits LUE Assessment: AROM - Left Upper Extremity: Within Functional Limits Strength - Left Upper Extremity: Within Functional Limits Activity Tolerance: Activity Tolerance: Requires rest breaks Oxygen Therapy: O2 L/M: 3 $ O2 DEVICE: Nasal Cannula $ ASSESSMENT: Pt in supine at start of session and agreeable to therapy Pt is on 3 lt of O2 support and presents with low functional activity tolerance Pt completed simple grooming tasks while seated with HOB raised with Mod A O2 saturations dropped to low 80% with minimal exertion but recovery was quick with rest Pt completed B UE AROM Needed rest breaks after every 2 reps to recover O2 level to > 90% Pt will need assist with self care post dc and will benefit from additional therapies to support return to PLOF Call light and phone in reach with bed alarm activated. All lines, monitors, IV's, equipment in place and intact pre and post visit. RN notified of patient's performance/location end of session. Mobility Status-White Board Mobility Status Communication-White Board Updated?: Yes Please refer to the Filed Flowsheet OT Treatment for further details. Refer to care plan for goals. If this is the last Occupational Therapy visit, this serves as the discharge summary. OT x [phone] * Ariel Cornell MD - 11/02/2023 1:03 PM CDT Internal Medicine Progress Note -Hospitalist Admit Date: 10/12/2023 4:19 AM Hospital Day: 21 Clinical Course: 72 independent living, history of AFib, CHF, VALENTINA on BiPAP at nighttime, COPD, CKD was admitted for sepsis and lower extremity cellulitis Course complicated by significant confusion requiring Neurology consultation. Also noted severe hypernatremia. 10/21 downgraded from IMCU 10/22 improved, on 2 liters/minute, baseline 11/01/2023 -14 runs of V-tach noticed, electrolytes are normal, not hypoxic, hemodynamically stable New Symptoms: Patient feels he was at baseline now. Objective: Vitals: 11/02/23 0750 11/02/23 1025 11/02/23 1036 11/02/23 1153 BP: 105/65 96/53 Pulse: 77 78 75 Resp: Temp: 98.1 ??F (36.7 ??C) 97.5 ??F (36.4 ??C) SpO2: 98% 97% 100% 100% Weight: Height: General appearance: Awake responsive, able to communicate and ask the right questions Left pupil is bigger than right Heart: normal rate Lungs: breath sounds normal and symmetric; no rales or wheezes, he is somewhat tachypnic. Abdomen: soft without mass, non-tender, with normal bowel sounds Extremities: no clubbing, cyanosis or edema, chronic venous insufficiency changes on bilateral calves. 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 Intake/Output Summary (Last 24 hours) at 11/02/2023 1303 Last data filed at 11/02/2023 0932 Gross per 24 hour Intake 840 ml Output 1200 ml Net -360 ml Current Medications: MEDICATIONS FOR CURRENT ENCOUNTER: SCHEDULED MEDICATIONS: apixaban (Eliquis) tablet 5 mg, Oral, BID doxycycline monohydrate capsule 100 mg, Oral, QDAY insulin aspart (NovoLOG) pen 0-12 Units, Subcutaneous, 4X/day - AC & HS lactobacillus (Lactinex) granules 1 packet, Oral, TID levalbuterol (Xopenex) nebulizer solution 1.25 mg, Inhalation, q6h lidocaine (Lidoderm) 5 % patch 1 patch, Transdermal, q24h losartan (Cozaar) tablet 25 mg, Oral, QDAY metoprolol succinate XL 24hr (Toprol XL) tablet 50 mg, Oral, QDAY pantoprazole EC (Protonix) tablet 40 mg, Oral, QDAY rifAXIMin (Xifaxan) tablet 550 mg, Oral, BID senna-docusate (Senokot-S) tablet 1 tablet, Oral, q48h spironolactone (Aldactone) tablet 12.5 mg, Oral, QDAY venlafaxine (Effexor) tablet 37.5 mg, Oral, QDAY [COMPLETED] magnesium sulfate 1 g in 100 mL bolus, Intravenous, Once CONTINUOUS MEDICATIONS: 0.9% NaCl flush bag, Intravenous, CONTINUOUS PRN PRN MEDICATIONS: Or Or 0.9% NaCl flush bag, Intravenous, CONTINUOUS PRN acetaminophen (Tylenol) tablet 650 mg, Oral, q6h PRN bisacodyl (Dulcolax) suppository 10 mg, Rectal, QDAY PRN dextrose 10 % IV bolus, Intravenous, PRN dextrose 10 % IV bolus, Intravenous, PRN glucagon (Glucagen) injection 1 mg, Subcutaneous, PRN glucose (Diabetic Use) oral gel, Oral, PRN HYDROcodone-acetaminophen ([place]) 7.5-325 MG tablet 1 tablet, Oral, q6h PRN hydrOXYzine HCl (Atarax) tablet 25 mg, Oral, 4X/day PRN ondansetron (disintegrating) (Zofran ODT) tablet 4 mg, Oral, q6h PRN ondansetron (Zofran) injection 4 mg, Intravenous, q4h PRN senna (Senokot) tablet 8.6 mg, Oral, BID PRN Data: Recent Labs Component Name 11/02/23 0810 10/30/23 0435 10/26/23 0359 SODIUM 139 133* 144 POTASSIUM 4.4 4.1 4.1 BUN 22 22 17 CREATININE 1.44* 1.06 1.08 GLUCOSE 94 97 103 Recent Labs Component Name 11/02/23 0810 11/01/23 0502 10/31/23 0431 WBC 7.7 9.4 9.0 HGB 10.6* 10.9* 10.5* HCT 34.3* 35.5* 32.9* PLTCOUNT 171 202 219 Assessment and Plan Left thigh cellulitis looks to be improving almost erythema has gone CT scan showed no soft tissue gas and no abscess Surgery and Infectious Disease managing Group G strep bacteremia Secondary to above S/p ceftriaxone until 10/23 - now on oral doxycycline Hypernatremia Resolved Difficulty swallowing Likely secondary to altered mental status. - NG removed 10/20 started on diet Acute on chronic kidney disease likely ATN in the settings of shock also received contrast Improving - cabral removed 10/25 - spontaneously voiding - monitor closely Acute on chronic hypoxemic respiratory failure Extubated October 11 Currently on nasal cannula -he is oxygen 2 liters/minute, saturating 90% which is at baseline - He is at his baseline o2 requirement History of CHF monitor fluid status - continue losartan 25 mg daily - continue spironolactone 12.5 mg - consider SGLT2i at discharge - History of atrial fibrillation - changing to lopressor to Toprol XL 50 mg daily - Carly - 14 runs of V-tach noticed on 11/01/2023 -magnesium supplement as per Cardiology -continue monitoring telemetry Right elbow pain - No Dislocation - x-ray assessment without abnormality - Superficial clot - Gout - solumedrol 40 mg x given 10/26 - colchicine 0.6 mg Q 4 hours x 2 doses given on 10/26 - resolved, suspect gout was etiology Constipation - resolved - continue senna/colace every other day Anxiety - atarax 25 mg QID PRN anxiety Septic shock presented on admission IV fluids, IV antibiotics Resolved 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 DVT prophylaxis: Eliquis Full Code Ariel Cornell MD 11/02/2023 1:03 PM Portions of this note may be dictated using voice recognition software. Variances in spelling and vocabulary are possible and unintentional. Not all errors are caught/corrected. Please notify the author if any discrepancies are noted or if the meaning of any statement is not clear. These grammatical oversights have no impact on the medical care provided to the patient. Time in which this note is created does not match the time of rounding/clinical exam. * Cyndee Roberts RCP - 11/02/2023 10:30 AM CDT Problem: Impaired Gas Exchange Goal: Resp rate/effort will be within specified limits Description: To maintain oxygen within normal parameters. RT to monitor. Note: Mr. Keys' rate and respiratory pattern are within normal limits. Pt has scheduled breathing treatments. Pt is resting comfortalbly. Will continue to monitor. * Aneta Whittington MD - 11/02/2023 9:58 AM CDT Cardiology Progress Note Admit Date: 10/12/2023 4:19 AM Hospital Day: 21 Chief complaint: SOB, cough, vomiting, fatigue, left thigh pain Symptoms No new complaints Rise in creatinine today noted Tele: CAF with PVC's. Data Vitals: 11/02/23 0025 11/02/23 0250 11/02/23 0359 11/02/23 0750 BP: 127/68 105/65 Pulse: 85 79 77 Resp: 22 22 18 Temp: 98 ??F (36.7 ??C) 98.1 ??F (36.7 ??C) SpO2: 96% 99% 98% 98% Weight: Height: Intake/Output Summary (Last 24 hours) at 11/02/2023 0958 Last data filed at 11/02/2023 0932 Gross per 24 hour Intake 840 ml Output 1700 ml Net -860 ml Exam- reviewed/unchanged General appearance: elderly M alert, cooperative, no distress Chest: lungs clear Cardiovascular: irregularly irregular rate and rhythm, variable S1 , no murmur Abdomen: soft without mass, non-tender, with normal bowel sounds Extremities: trace LLE edema, left pretibial erythema My review of labs, imaging, notes and other tests is significant for Recent Labs Component Name 11/02/23 0810 11/01/23 0502 10/31/23 0431 WBC 7.7 9.4 9.0 HGB 10.6* 10.9* 10.5* HCT 34.3* 35.5* 32.9* PLTCOUNT 171 202 219 Recent Labs Component Name 11/02/23 0810 10/30/23 0435 10/26/23 0359 SODIUM 139 133* 144 POTASSIUM 4.4 4.1 4.1 CHLORIDE 108* 107 113* CO2 23 20* 19* BUN 17 CREATININE 1.44* 1.06 1.08 GLUCOSE 94 97 103 CALCIUM 8.9 9.0 9.3 Recent Labs Component Name 08/20/20 0000 07/24/17 0508 04/23/17 1103 TSH 1.27 2.518 1.64 Magnesium Date Value Ref Range Status 11/02/2023 1.9 1.6 - 2.6 mg/dL Final Medications apixaban (Eliquis) tablet 5 mg, Oral, BID doxycycline monohydrate capsule 100 mg, Oral, QDAY insulin aspart (NovoLOG) pen 0-12 Units, Subcutaneous, 4X/day - AC & HS lactobacillus (Lactinex) granules 1 packet, Oral, TID levalbuterol (Xopenex) nebulizer solution 1.25 mg, Inhalation, q6h lidocaine (Lidoderm) 5 % patch 1 patch, Transdermal, q24h losartan (Cozaar) tablet 25 mg, Oral, QDAY magnesium sulfate 1 g in 100 mL bolus, Intravenous, Once metoprolol succinate XL 24hr (Toprol XL) tablet 50 mg, Oral, QDAY pantoprazole EC (Protonix) tablet 40 mg, Oral, QDAY rifAXIMin (Xifaxan) tablet 550 mg, Oral, BID senna-docusate (Senokot-S) tablet 1 tablet, Oral, q48h spironolactone (Aldactone) tablet 12.5 mg, Oral, QDAY venlafaxine (Effexor) tablet 37.5 mg, Oral, QDAY [COMPLETED] magnesium sulfate 2 g in 50 mL bolus, Intravenous, Once Assessment Septicemia, GBS bacteremia, LLE cellulitis Chronic a-fib on Eliquis Run of NSVT Prior PE/DVT MICHAUD RADHA on CKD Dilated CM; HFmrEF, 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 Continue Eliquis Changed Lopressor to Toprol XL 50 mg QD Continue Losartan 25 mg, Spironolactone 12.5 mg, monitor renal function Supplement Mag again today Aneta Whittington MD 11/02/2023 * Radha Malone MSW - 11/02/2023 9:51 AM CDT New Facility Referral Follow-up Level of Care (SNF/Medicaid NH/Rehab/Safety Lead Care/LTACH): snf requested/ spouse is interested in [address] Below fac with approval and an available bed as early as today once Auth rcd (willie Benavides to obtain- see Angeline note for Auth updates), pt with a recent BM, Covid test done and not detected,not older than 48 hours old, and pt with discharge orders written ( MD Dr Cornell to advisewhen stable//following today). provided NPI info to willie Benavides. See willie Marcus notes for all Auth updates as pt has [employer]. Referrals initiated: Continued Care and Services - Admitted Since 10/12/2023 Destination Coordination complete. Service Provider Request Status Selected Services Address Phone Fax Patient Preferred [facility] / [facility] [address] [facility] [address] -- [facility] and [facility])Pending - Request Sent N/A [id number] [facility] [id number] [phone] -- Current Capacity last updated by Chantel Lepe on 04/28/2022 1234 [address] [facility] Declined Facility cannot provide for patient's needs, per admissions unable to accommodate. N/A [address] [id number] -- [facility] Declined managed care heavy N/A [address] [facility] [address] [phone] -- If Medicare-3 day qualifying stay verified: pt has [employer] and will need an Auth. NPI info provided to pts willie Benavides. Willie to obtain snf Auth. See cm note for all Auth updates. NPI for fac is [id number]/ Md assigned will bed Dr Preston Bradshaw . monitoring facility responses Comments/changes:@ discharge nrsg to please send fac orders,chart and discharge summary. Name: CHRIS Garcia Phone: [phone] * Tiffany Fortune MD - 11/02/2023 9:11 AM CDT Admit Date: 10/12/2023 4:19 AM Hospital Day: 21 Follow Up Acute respiratory failure, AMS New Symptoms Patient awake, denies chest pain, chest tightness, and claims shortness of breath has decreased. Data Vitals: 11/02/23 0025 11/02/23 0250 11/02/23 0359 11/02/23 0750 BP: 127/68 105/65 Pulse: 85 79 77 Resp: 22 22 18 Temp: 98 ??F (36.7 ??C) 98.1 ??F (36.7 ??C) SpO2: 96% 99% 98% 98% Weight: Height: Temp (30hrs) Max:98.1 ??F (36.7 ??C) Intake/Output Summary (Last 24 hours) at 11/02/2023 0911 Last data filed at 11/02/2023 0552 Gross per 24 hour Intake 840 ml Output 1700 ml Net -860 ml Medications have been reviewed Exam General appearance: no distress HEENT: Grossly unremarkable Heart: regular rhythm, normal S1 and S2, Lungs: Clear Abdomen: soft , NT Extremities: + edema Neuro: No focal deficits. Recent Labs Component Name 11/02/23 0810 11/01/23 0502 10/31/23 0431 WBC 7.7 9.4 9.0 HGB 10.6* 10.9* 10.5* HCT 34.3* 35.5* 32.9* PLTCOUNT 171 202 219 Recent Labs Component Name 11/02/23 0810 10/30/23 0435 10/26/23 0359 03/08/23 1347 08/23/22 2024 02/09/22 0921 08/03/21 1025 01/09/21 1055 09/05/20 1325 02/03/19 0106 09/19/17 0243 09/18/17 0003 SODIUM 139 133* 144 - - - 139 137 140 - - - NA - - - - 141 - - - - - 138 140 POTASSIUM 4.4 4.1 4.1 - 4.6* - 4.7 4.4 4.2 - 4.9* 3.4* CHLORIDE 108* 107 113* - - - 102 102 103 - - - CO2 23 20* 19* - 26 - 27 26 28 - 34* 35* BUN 22 22 17 - 26 - 41* 50* 27* - 26 25 CREATININE 1.44* 1.06 1.08 - 1.60* - 1.89* 2.07* 1.46* - 0.6 0.6 GLUCOSE 94 97 103 - 113 - 124* 144* 109* - 153* 135* CALCIUM 8.9 9.0 9.3 - 10.3* - 9.6 9.7 9.9 - 9.1 9.0 EGFR 51* 74* 72* - 45* - 35* 31* 48* - >60 >60 EGFRAFR - - - - - - 40* 36* 55* - - - - = values in this interval not displayed. @ Recent Labs Component Name 10/17/23 2117 10/17/23 1434 10/17/23 0811 10/17/23 0420 10/12/23 0508 09/10/17 0557 09/09/17 0841 09/09/17 0422 FIO2 - 30.0 40.0 40.0 - 40.0 100.0 100.0 PH 7.39 7.45 7.32* 7.32* - 7.45 7.51* 7.41 PCO2 57* 48* 61* 61* - 44 38 45 BE 7.8* 8.2* 3.8* 3.9* - 5.4* 5.7* 2.4* HCO3 - - - - - 30.0* 29.2* 27.4* PO2 135* 86 146* 110* - 80 274* 65* O2SAT 100 99 99 99 - - - - [id number] 34.5* 33.4* 31.4* 31.4* - - - - - = values in this interval not displayed. Assessment/Plan: Acute hypercapnic respiratory failure: Patient is currently on home BiPAP . BiPAP at home with settings of IPAP of 18 and EPAP of 14 cm water pressure. Significant improvement with resolution of respiratory acidosis but has chronic hypercapnia. On 2L NC during the day. Wean oxygen down to room air-keep saturation more than 90 percent Altered mental status: Resolved. Presumed to be secondary to hypercapnic respiratory failure. CT Head without acute pathology. EEG ok. LFT ok, Ammonia ok, on Rifaximin empirically, off Lactulose Bilateral pleural effusion with attendant atelectasis: CXR 10/31/2023 shows mild pulmonary vascular congestion , Clinically better post Lasix Hypernatremia presumably secondary to diuresis. Resolved. Follow [facility] Nephrology is following. Mild azotemia secondary to diuresis Group G Streptococcus bacteremia per blood cultures at outside facility: Patient has completed Ceftriaxone , on doxycycline- For chronic prophylaxis? Id is following patient Excessive narcotic use during this hospitalization: Patient required Narcan drip initially Anasarca during the hospitalization: Echocardiogram showed EF of 45 percent, patient is slightly more fluid overloaded specially per chest x-ray and clinically. BNP slightly elevated. Received 1 doseof Lasix 10/31/2023 - clinically better History of atrial fibrillation: Patient is on beta-fe and Eliquis Code status: Full * Makayla Echavarria Cm, RN - 11/02/2023 8:43 AM CDT Care Coordination Progress Note Anticipated level of care at discharge: Care Home - Skilled Facility, Home Health Care Comment: see progress sect for all snf referrals made: Anticipated level of care provider: None: Anticipated Discharge Date: 11/02/23: Discharge Plan: PC to patient's . She tells me prior to admit patient was fairly Independent, she assisted with bathing, patient dressed self, uses a walker in the house and can get from chair tobathroom, kitchen, bedroom all on his own. Does wear O2 at home. She is agreeable to start looking for SNF any where between here and [facility] made aware. UPDATED SNF found, insurance auth submitted. Pending auth ID# [id number] Orientation Level: Oriented X4: Family Support (Name and Phone): Extended Emergency Contact Information Primary Emergency Contact: Trinity Keys Address: [address] [place] [address] [place] [address] [facility] Mobile Relation: Spouse City Manager needed? No Transportation at Discharge: Ambulance: READMISSION RISK SCORE is 15 at 8:44 AM 11/02/2023.: Name: Makayla Echavarria RN * Lucie Jarvis RD/LD - 11/01/2023 5:55 PM CDT Problem: Oral Intake: Inadequate oral intake Goal: Total intake will meet estimated nutrient needs Outcome: Progressing * Lucie Jarvis RD/SALVADOR - 11/01/2023 5:51 PM CDT Brief Synopsis: Patient is at nutrition risk but does not meet malnutrition criteria. Energy Intake: < 75% of estimated energy requirement for > 7 days Nutrition Plan: Current diet order: Easy to Chew/Mechanical Soft Current supplement order: None Recommendations to Physician: Continue with current diet Discharge Needs: Pending Nutrition Reassessment Changes in condition/Patient Summary: Chart reviewed. PO intake appears to be improving. Assessment Med/Surg History and Clinical Diagnoses: Fluid and electrolyte disorder: hyperkalemia requiring further monitoring Thrombocytopenia Thrombocytopenia requiring further monitoring Hypoalbuminemia requiring further monitoring Chronic kidney disease: Chronic Kidney Disease, Unspecified Cardiac arrhythmia: Atrial fibrillation, unspecified Congestive Heart Failure Shock: Severe sepsis with shock Obesity Patient receiving mechanical ventilation Weight Review Height: 180.3 cm (5' 10.98 ) Last Weight: 111.1 kg (245 lb) (10/14/23 0643) Last Weight Method : Bed scale (10/14/23 0643) [place] Body Weight IBW/lb (Calculated) Male: 171.904 BMI: Body mass index is 34.19 kg/m??. BMI Range: Obese Class 1 Weight Assessment: No new weight Wt Readings from Last 10 Encounters: 10/14/23 111.1 kg (245 lb) 05/12/23 111.1 kg (245 lb) 03/21/23 110.7 kg (244 lb) 10/07/22 120.7 kg (266 lb) 08/23/22 120.7 kg (266 lb) 08/23/22 120.7 kg (266 lb) 02/23/22 120.2 kg (265 lb) 08/17/21 121.1 kg (267 lb) 12/30/20 114.8 kg (253 lb) 08/26/20 114.9 kg (253 lb 6.4 oz) PO INTAKE Current diet order: Easy to Chew/Mechanical Soft Food Allergies: Other (Comments) (all Peppers) Last % Meal Taken: 75 % (11/01/23 1507) P.O.Intake for the past 48 hrs: % Meal Taken Av.3 % Min: 50 % Max: 75 % Current supplement order: None Supplement(s) Consumed- Last 48 hours None PO Intake Assessment: Variable po intake, appears to be improving GI Concerns: (BM 10/30) Chewing/Swallowing: Dysphagia Skin/Wound: incontinence associated dermatitis Last Skin Condition: Bruising;Swollen;Cellulitis (11/01/23 1630) Pain affecting intake: No Estimated Needs: KCAL: 4922-1820 based on 20 kcals/kg abw -500 Protein (g): 94 based on 1.2 g/kg ibw Fluid (ml): 1 ml/kcal Needs based on: Kcal/kg- (Comment) Recommended Access Route: PO Labs: Recent Labs Component Name 10/30/23 0435 10/26/23 0359 10/19/23 1639 10/19/23 0336 SODIUM 133* 144 - 156* POTASSIUM 4.1 4.1 - 3.3* CHLORIDE 107 113* - 120* CO2 20* 19* - 27 BUN 22 17 - 63* CREATININE 1.06 1.08 - 1.83* GLUCOSE 97 103 - 120* CALCIUM 9.0 9.3 - 9.3 ALBUMIN - 2.4* - 2.5* ALKPHOS - - - 80 ALT - - - 38 AST - - - 31 TBIL - - - 0.8 TPROT - - - 6.8 EGFR 74* 72* - 38* - = values in this interval not displayed. Recent Labs Component Name 10/26/23 0359 10/25/23 0411 10/24/23 0517 PHOS 2.6 2.5 2.4 Recent Labs Component Name 10/13/23 0346 02/03/19 0106 07/14/17 2212 HGBA1C 6.5* 5.8 6.3 Patient Vitals for the past 30 hrs: Glucose Bedside (mg/dL) 11/01/23 1139 126 mg/dL 11/01/23 0735 113 mg/dL 10/31/232018 112 mg/dL 10/31/23 1733 112 mg/dL 10/31/23 1201 104 mg/dL PERTINENT MEDICATIONS FOR CURRENT ENCOUNTER: SCHEDULED MEDICATIONS: apixaban (Eliquis) tablet 5 mg, Oral, BID doxycycline monohydrate capsule 100 mg, Oral, QDAY insulin aspart (NovoLOG) pen 0-12 Units, Subcutaneous, 4X/day - AC & HS lactobacillus (Lactinex) granules 1 packet, Oral, TID levalbuterol (Xopenex) nebulizer solution 1.25 mg, Inhalation, q6h lidocaine (Lidoderm) 5 % patch 1 patch, Transdermal, q24h losartan (Cozaar) tablet 25 mg, Oral, QDAY metoprolol succinate XL 24hr (Toprol XL) tablet 50 mg, Oral, QDAY pantoprazole EC (Protonix) tablet 40 mg, Oral, QDAY rifAXIMin (Xifaxan) tablet 550 mg, Oral, BID senna-docusate (Senokot-S) tablet 1 tablet, Oral, q48h spironolactone (Aldactone) tablet 12.5 mg, Oral, QDAY venlafaxine (Effexor) tablet 37.5 mg, Oral, QDAY [COMPLETED] magnesium sulfate 2 g in 50 mL bolus, Intravenous, Once CONTINUOUS MEDICATIONS: 0.9% NaCl flush bag, Intravenous, CONTINUOUS PRN ~~~~~~~~~~~~~~~~~~~~~~~~~~~~~~~~ Nutrition Diagnostic Statement: Inadequate oral intake related to:: decreased ability to consume ortolerate food and/or fluids due to illness as evidenced by:: oral intake insufficient to meet estimated requirements Nutrition Intervention: Meals and snacks:;Medical Food Supplements:;Collaboration with other providers Education Provided: Not appropriate (10/12/23 1100) Recommendation/Plan: Nutrition recommendation: agree with current nutrition order Monitoring: PO Weight Skin Labs Evaluation: Nutrition Goal: Intake will be improved to 75% or greater of meals/snacks Nutrition Goal Timeframe: Throughout stay * Ariel Cornell MD - 11/01/2023 3:16 PM CDT Internal Medicine Progress Note -Hospitalist Admit Date: 10/12/2023 4:19 AM Hospital Day: 20 Clinical Course: 72 independent living, history of AFib, CHF, VAL[place] on BiPAP at nighttime, COPD, CKD was admitted for sepsis and lower extremity cellulitis Started on IV antibiotics Course complicated by significant confusion requiring Neurology consultation. Also noted severe hypernatremia. NG was placed. 10/20 NG was pulled out, passed swallow eval, oriented 10/21 feels better overall improving, can move out of IMCU 10/22 improved, on 2 liters/minute, baseline 11/01/2023 -14 runs of V-tach noticed, electrolytes are normal, not hypoxic, Cardiology evaluate New Symptoms: Patient feels he was at baseline now. Objective: Vitals: 11/01/23 0927 11/01/23 1106 11/01/23 1348 11/01/23 1506 BP: (!) 158/108 131/88 136/85 Pulse: 90 86 85 87 Resp: 18 18 Temp: 97.7 ??F (36.5 ??C) 98 ??F (36.7 ??C) SpO2: 100% 100% 100% Weight: Height: General appearance: Awake responsive, able to communicate and ask the right questions Left pupil is bigger than right Heart: normal rate Lungs: breath sounds normal and symmetric; no rales or wheezes, he is somewhat tachypnic. Abdomen: soft without mass, non-tender, with normal bowel sounds Extremities: no clubbing, cyanosis or edema, chronic venous insufficiency changes on bilateral calves. 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 Intake/Output Summary (Last 24 hours) at 11/01/2023 1516 Last data filed at 11/01/2023 1507 Gross per 24 hour Intake 920 ml Output 1450 ml Net -530 ml Current Medications: MEDICATIONS FOR CURRENT ENCOUNTER: SCHEDULED MEDICATIONS: apixaban (Eliquis) tablet 5 mg, Oral, BID doxycycline monohydrate capsule 100 mg, Oral, QDAY insulin aspart (NovoLOG) pen 0-12 Units, Subcutaneous, 4X/day - AC & HS lactobacillus (Lactinex) granules 1 packet, Oral, TID levalbuterol (Xopenex) nebulizer solution 1.25 mg, Inhalation, q6h lidocaine (Lidoderm) 5 % patch 1 patch, Transdermal, q24h losartan (Cozaar) tablet 25 mg, Oral, QDAY metoprolol succinate XL 24hr (Toprol XL) tablet 50 mg, Oral, QDAY pantoprazole EC (Protonix) tablet 40 mg, Oral, QDAY rifAXIMin (Xifaxan) tablet 550 mg, Oral, BID senna-docusate (Senokot-S) tablet 1 tablet, Oral, q48h spironolactone (Aldactone) tablet 12.5 mg, Oral, QDAY venlafaxine (Effexor) tablet 37.5 mg, Oral, QDAY [COMPLETED] magnesium sulfate 2 g in 50 mL bolus, Intravenous, Once CONTINUOUS MEDICATIONS: 0.9% NaCl flush bag, Intravenous, CONTINUOUS PRN PRN MEDICATIONS: Or Or 0.9% NaCl flush bag, Intravenous, CONTINUOUS PRN acetaminophen (Tylenol) tablet 650 mg, Oral, q6h PRN bisacodyl (Dulcolax) suppository 10 mg, Rectal, QDAY PRN dextrose 10 % IV bolus, Intravenous, PRN dextrose 10 % IV bolus, Intravenous, PRN glucagon (Glucagen) injection 1 mg, Subcutaneous, PRN glucose (Diabetic Use) oral gel, Oral, PRN HYDROcodone-acetaminophen ([place]) 7.5-325 MG tablet 1 tablet, Oral, q6h PRN hydrOXYzine HCl (Atarax) tablet 25 mg, Oral, 4X/day PRN ondansetron (disintegrating) (Zofran ODT) tablet 4 mg, Oral, q6h PRN ondansetron (Zofran) injection 4 mg, Intravenous, q4h PRN senna (Senokot) tablet 8.6 mg, Oral, BID PRN Data: Recent Labs Component Name 10/30/23 0435 10/26/23 0359 10/25/23 0411 SODIUM 133* 144 146* POTASSIUM 4.1 4.1 3.9 BUN CREATININE 1.06 1.08 1.27* GLUCOSE 97 103 109* Recent Labs Component Name 11/01/23 0502 10/31/23 0431 10/30/23 0435 WBC 9.4 9.0 8.2 HGB 10.9* 10.5* 10.4* HCT 35.5* 32.9* 32.0* PLTCOUNT 202 219 228 Assessment and Plan 1. Altered mental status resolved 2. Septic shock presented on admission IV fluids, IV antibiotics resolved 3. Left thigh cellulitis looks to be improving almost erythema has gone On p.o. doxycycline [address] scan showed no soft tissue gas and no abscess Surgery and Infectious Disease managing 4. Group G strep bacteremia Secondary to above Continued on ceftriaxone until 10/23 - now on oral doxycycline 5. Lactic acidosis resolved 6. Hypernatremia Resolved at last check 7. Difficulty swallowing Likely secondary to altered mental status. - NG removed 10/20 started on diet 8. Acute on chronic kidney disease likely ATN in the settings of shock also received contrast Improving - remove cabral 10/25 - spontaneously voiding - monitor closely 9. Acute on chronic hypoxemic respiratory failure looks to be much better Extubated October 11 Currently on nasal cannula -he is oxygen 2 liters/minute, saturating 90% which is at baseline 10. History of COPD no wheezing 11. History of CHF monitor fluid status - continue losartan 25 mg daily - continue spironolactone 12.5 mg - consider SGLT2i at discharge 12. History of atrial fibrillation - changing to lopressor to Toprol XL 50 mg daily - Eliquis - 14 runs of V-tach noticed on 11/01/2023 -magnesium supplement as per Cardiology -continue monitoring telemetry 13. Michaud cirrhosis continue rifaximin will stop lactulose 14. Hypokalemia repleted 15. 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 Right elbow pain - No Dislocation - x-ray assessment without abnormality - Superficial clot - Gout - solumedrol 40 mg x given 10/26 - colchicine 0.6 mg Q 4 hours x 2 doses given on 10/26 - resolved, suspect gout was etiology 17. Constipation - resolved - continue senna/colace every other day 18. Anxiety - atarax 25 mg QID PRN anxiety Patient's Functional Baseline prior to admit: independent Discharge Planning to Next Site of Care: SNF - awaiting facility acceptance Anticipated discharge date: 10/23 READMISSION RISK SCORE is 15 at 3:16 PM 11/01/2023. DVT prophylaxis: Eliquis Full Code Ariel Cornell MD 11/01/2023 3:16 PM Portions of this note may be dictated using voice recognition software. Variances in spelling and vocabulary are possible and unintentional. Not all errors are caught/corrected. Please notify the author if any discrepancies are noted or if the meaning of any statement is not clear. These grammatical oversights have no impact on the medical care provided to the patient. Time in which this note is created does not match the time of rounding/clinical exam. * Sarahi Pena RCP - 11/01/2023 1:58 PM CDT Patient has home BiPAP with settings of IPAP of 18 and EPAP of 14 cm water pressure. Per Dr Fortune, patient may start using home BiPAP, instead of hospital equipment. Sarahi Pena RCP 11/01/2023 2:00 PM * Aneta Whittington MD - 11/01/2023 9:59 AM CDT Cardiology Progress Note Admit Date: 10/12/2023 4:19 AM Hospital Day: 20 Chief complaint: SOB, cough, vomiting, fatigue, left thigh pain Symptoms Appears comfortable Tele: CAF with PVC's. Data Vitals: 11/01/23 0600 11/01/23 0735 11/01/23 0855 11/01/23 0927 BP: 161/93 158/90 (!) 158/108 Pulse: 74 88 90 Resp: 16 18 Temp: 97.6 ??F (36.4 ??C) SpO2: 98% 100% Weight: Height: Intake/Output Summary (Last 24 hours) at 11/01/2023 0959 Last data filed at 11/01/2023 0940 Gross per 24 hour Intake 1160 ml Output 950 ml Net 210 ml Exam- reviewed/unchanged General appearance: elderly M alert, cooperative, no distress Chest: lungs clear Cardiovascular: irregularly irregular rate and rhythm, variable S1 , no murmur Abdomen: soft without mass, non-tender, with normal bowel sounds Extremities: trace LLE edema, left pretibial erythema NEUROPSYCH: nonfocal exam; alert, pleasant My review of labs, imaging, notes and other tests is significant for Recent Labs Component Name 11/01/23 0502 10/31/23 0431 10/30/23 0435 WBC 9.4 9.0 8.2 HGB 10.9* 10.5* 10.4* HCT 35.5* 32.9* 32.0* PLTCOUNT 202 219 228 Recent Labs Component Name 10/30/23 0435 10/26/23 0359 10/25/23 0411 SODIUM 133* 144 146* POTASSIUM 4.1 4.1 3.9 CHLORIDE 107 113* 115* CO2 20* 19* 23 BUN 22 17 19 CREATININE 1.06 1.08 1.27* GLUCOSE 97 103 109* CALCIUM 9.0 9.3 8.9 Recent Labs Component Name 08/20/20 0000 07/24/17 0508 04/23/17 1103 TSH 1.27 2.518 1.64 Magnesium Date Value Ref Range Status 10/30/2023 1.6 1.6 - 2.6 mg/dL Final Medications apixaban (Eliquis) tablet 5 mg, Oral, BID doxycycline monohydrate capsule 100 mg, Oral, QDAY insulin aspart (NovoLOG) pen 0-12 Units, Subcutaneous, 4X/day - AC & HS lactobacillus (Lactinex) granules 1 packet, Oral, TID levalbuterol (Xopenex) nebulizer solution 1.25 mg, Inhalation, q6h lidocaine (Lidoderm) 5 % patch 1 patch, Transdermal, q24h losartan (Cozaar) tablet 25 mg, Oral, QDAY magnesium sulfate 2 g in 50 mL bolus, Intravenous, Once metoprolol succinate XL 24hr (Toprol XL) tablet 50 mg, Oral, QDAY pantoprazole EC (Protonix) tablet 40 mg, Oral, QDAY rifAXIMin (Xifaxan) tablet 550 mg, Oral, BID senna-docusate (Senokot-S) tablet 1 tablet, Oral, q48h spironolactone (Aldactone) tablet 12.5 mg, Oral, QDAY venlafaxine (Effexor) tablet 37.5 mg, Oral, QDAY [COMPLETED] furosemide (Lasix) injection 20 mg, Intravenous, Once Assessment Septicemia, GBS bacteremia, LLE cellulitis Chronic a-fib on Eliquis Run of NSVT Prior PE/DVT MICHAUD RADHA on CKD Dilated CM; HFmrEF, 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 Continue Eliquis Changed Lopressor to Toprol XL 50 mg QD Continue Losartan 25 mg, Spironolactone 12.5 mg Supplement Mag Aneta Whittington MD 11/01/2023 * Monisha (Willie)Makayla RN - 11/01/2023 9:33 AM CDT Care Coordination Progress Note Anticipated level of care at discharge: Care Home - Skilled Facility, Home Health Care Comment: see progress sect for all snf referrals made: Anticipated level of care provider: None: Anticipated Discharge Date: 11/02/23: Discharge Plan: to SNF in [facility] area. Referrals have been made, no accepting SNF at this time. See SW notes for further discharge details. Patient here from home with his spouse prior to admit. Orientation Level: Oriented X4: Family Support (Name and Phone): Extended Emergency Contact Information Primary Emergency Contact: Trinity Keys Address: [address] [place] [address] [place] [address] [facility] Mobile Relation: Spouse City Manager needed? No Transportation at Discharge: Ambulance: READMISSION RISK SCORE is 15 at 9:33 AM 11/01/2023.: Name: Makayla Echavarria RN * Lucie Gomez, PT - 11/01/2023 9:05 AM CDT Patient chart reviewed for history of presenting illness, diagnosis and medical/ surgical history. Nursing consented for PT session. Patient in bed and is at first agreeable to therapy. However, pt then declined therapy as PT removed blankets d/t urgently needing the bed macias. PT offered up to [facility] however, pt said he needed to go now. PT set pt up on bed macias. Call light given. RN aware. Will follow up at later time/ date as time permits. Checked back with pt in the afternoon. Pt currently eating and finishing with RT. Spoke with CSN about getting a bariatric recliner to help with out of bed tolerance. Therapy will f/u 11/01. 2829 * Tiffany Fortune MD - 11/01/2023 8:54 AM CDT Admit Date: 10/12/2023 4:19 AM Hospital Day: 20 Follow Up Acute respiratory failure, AMS New Symptoms Patient asleep. Not in distress Data Vitals: 11/01/23 0255 11/01/23 0402 11/01/23 0600 11/01/23 0735 BP: (!) 188/93 161/93 158/90 Pulse: 88 73 74 Resp: 17 18 16 Temp: 98.1 ??F (36.7 ??C) 97.6 ??F (36.4 ??C) SpO2: 100% 98% Weight: Height: Temp (30hrs) Max:98.1 ??F (36.7 ??C) Intake/Output Summary (Last 24 hours) at 11/01/2023 0854 Last data filed at 11/01/2023 0008 Gross per 24 hour Intake 920 ml Output 950 ml Net -30 ml Medications have been reviewed Exam General appearance: no distress HEENT: Grossly unremarkable Heart: regular rhythm, normal S1 and S2, Lungs: Clear Abdomen: soft , NT Extremities: + edema Neuro: No focal deficits. Recent Labs Component Name 11/01/23 0502 10/31/23 0431 10/30/23 0435 WBC 9.4 9.0 8.2 HGB 10.9* 10.5* 10.4* HCT 35.5* 32.9* 32.0* PLTCOUNT 202 219 228 Recent Labs Component Name 10/30/23 0435 10/26/23 0359 10/25/23 0411 03/08/23 1347 08/23/22 2024 02/09/22 0921 08/03/21 1025 01/09/21 1055 09/05/20 1325 02/03/19 0106 09/19/17 0243 09/18/17 0003 SODIUM 133* 144 146* - - - 139 137 140 - - - NA - - - - 141 - - - - - 138 140 POTASSIUM 4.1 4.1 3.9 - 4.6* - 4.7 4.4 4.2 - 4.9* 3.4* CHLORIDE 107 113* 115* - - - 102 102 103 - - - CO2 20* 19* 23 - 26 - 27 26 28 - 34* 35* BUN 22 17 19 - 26 - 41* 50* 27* - 26 25 CREATININE 1.06 1.08 1.27* - 1.60* - 1.89* 2.07* 1.46* - 0.6 0.6 GLUCOSE 97 103 109* - 113 - 124* 144* 109* - 153* 135* CALCIUM 9.0 9.3 8.9 - 10.3* - 9.6 9.7 9.9 - 9.1 9.0 EGFR 74* 72* 59* - 45* - 35* 31* 48* - >60 >60 EGFRAFR - - - - - - 40* 36* 55* - - - - = values in this interval not displayed. @ Recent Labs Component Name 10/17/23 2117 10/17/23 1434 10/17/23 0811 10/17/23 0420 10/12/23 0508 09/10/17 0557 09/09/17 0841 09/09/17 0422 FIO2 - 30.0 40.0 40.0 - 40.0 100.0 100.0 PH 7.39 7.45 7.32* 7.32* - 7.45 7.51* 7.41 PCO2 57* 48* 61* 61* - 44 38 45 BE 7.8* 8.2* 3.8* 3.9* - 5.4* 5.7* 2.4* HCO3 - - - - - 30.0* 29.2* 27.4* PO2 135* 86 146* 110* - 80 274* 65* O2SAT 100 99 99 99 - - - - BTL3HRL 34.5* 33.4* 31.4* 31.4* - - - - - = values in this interval not displayed. Assessment/Plan: Acute hypercapnic respiratory failure: Patient is currently on BiPAP with an IPAP of 18 and EPAP of8 with 2L oxygen bled in at night . Patient has BiPAP at home with settings of IPAP of 18 and EPAP of 14 cm water pressure. Significant improvement with resolution of respiratory acidosis but has chronic hypercapnia. On 2L NC during the day. Wean oxygen down to room air-keep saturation more than 90percent Altered mental status: Resolved. Presumed to be secondary to hypercapnic respiratory failure. CT Head without acute pathology. EEG ok. LFT ok, Ammonia ok, on Rifaximin empirically, off Lactulose Bilateral pleural effusion with attendant atelectasis: CXR 10/31/2023 shows mild pulmonary vascular congestion , Clinically better post Lasix Hypernatremia presumably secondary to diuresis. Resolved. Follow Na Nephrology is following Group G Streptococcus bacteremia per blood cultures at outside facility: Patient has completed Ceftriaxone , on doxycycline- For chronic prophylaxis? Id is following patient Excessive narcotic use during this hospitalization: Patient required Narcan drip initially Anasarca during the hospitalization: Echocardiogram showed EF of 45 percent, patient is slightly more fluid overloaded specially per chest x-ray and clinically. BNP slightly elevated. Received 1 doseof Lasix 10/31/2023 - clinically better History of atrial fibrillation: Patient is on beta-fe and Eliquis Code status: Full * Radha Malone MSW - 11/01/2023 8:06 AM CDT New Facility Referral Follow-up Level of Care (SNF/Medicaid NH/Rehab/Safety Lead Care/LTACH): snf requested. Ss provided nrsg contact# to [place] admissions,Francia, and to [facility], Ricardo, june left for [facility] admissions. Ss awaiting assessments and rtn calls. Ss updated pts spouse Trinity Keys @ [phone]. Pt/ and fam would like pt to transfer to snf closer to home, [place] [employer] facilities being pursued per request. Referrals initiated: Continued Care and Services - Admitted Since 10/12/2023 Destination Service Provider Request Status Selected Services Address Phone Fax Patient [facility]erred [facility])Pending - Request Sent N/A [phone] [facility] [phone] -- Current Capacity last updated by Chantel Lepe on 04/28/2022 1237 [address] [facility] Pending - Request Sent N/A [address] [facility] [id number] -- [facility] Declined Facility cannot provide for patient's needs, per admissions unable to accommodate. N/A [address] [id number] -- [facility] managed care heavy N/A [address] [facility] [id number] [phone] -- If Medicare-3 day qualifying stay verified: pt has [employer] and will need an Auth to transfer to any snf. [facility] to obtain snf Auth once fac with approval with an available bed. monitoring facility responses Comments/changes:@ discharge nrsg to please send fac orders,chart and discharge summary. Name: CHRIS Garcia Phone: [phone] ss updated cm Makayla. * Tiffany Fortune MD - 10/31/2023 12:16 PM CDT Admit Date: 10/12/2023 4:19 AM Hospital Day: 19 Follow Up Acute respiratory failure, AMS New Symptoms Patient awake and oriented to time and place. Denies CP, complains of mild dyspnea Data Vitals: 10/31/23 0337 10/31/23 0731 10/31/23 0833 10/31/23 1108 BP: (!) 154/101 166/97 162/90 Pulse: 80 83 82 78 Resp: Temp: 97.2 ??F (36.2 ??C) 97.4 ??F (36.3 ??C) 97.2 ??F (36.2 ??C) SpO2: 98% 100% 97% 100% Weight: Height: Temp (30hrs) Max:98.4 ??F (36.9 ??C) Intake/Output Summary (Last 24 hours) at 10/31/2023 1216 Last data filed at 10/31/2023 1036 Gross per 24 hour Intake 560 ml Output 1100 ml Net -540 ml Medications have been reviewed Exam General appearance: no distress HEENT: Grossly unremarkable Heart: regular rhythm, normal S1 and S2, Lungs: + rhonchi Abdomen: soft , NT Extremities: + edema Neuro: No focal deficits. Recent Labs Component Name 10/31/23 0431 10/30/23 0435 10/29/23 0441 WBC 9.0 8.2 8.1 HGB 10.5* 10.4* 9.8* HCT 32.9* 32.0* 31.2* PLTCOUNT 219 228 216 Recent Labs Component Name 10/30/23 0435 10/26/23 0359 10/25/23 0411 03/08/23 1347 08/23/22202302/09/22 0921 08/03/21 1025 01/09/21 1055 09/05/20 1325 02/03/19 0106 09/19/17 0243 09/18/17 0003 SODIUM 133* 144 146* - - - 139 137 140 - - - NA - - - - 141 - - - - - 138 140 POTASSIUM 4.1 4.1 3.9 - 4.6* - 4.7 4.4 4.2 - 4.9* 3.4* CHLORIDE 107 113* 115* - - - 102 102 103 - - - CO2 20* 19* 23 - 26 - 27 26 28 - 34* 35* BUN 22 17 19 - 26 - 41* 50* 27* - 26 25 CREATININE 1.06 1.08 1.27* - 1.60* - 1.89* 2.07* 1.46* - 0.6 0.6 GLUCOSE 97 103 109* - 113 - 124* 144* 109* - 153* 135* CALCIUM 9.0 9.3 8.9 - 10.3* - 9.6 9.7 9.9 - 9.1 9.0 EGFR 74* 72* 59* - 45* - 35* 31* 48* - >60 >60 EGFRAFR - - - - - - 40* 36* 55* - - - - = values in this interval not displayed. @ Recent Labs Component Name 10/17/23 2117 10/17/23 1434 10/17/23 0811 10/17/23 0420 10/12/23 0508 09/10/17 0557 09/09/17 0841 09/09/17 0422 FIO2 - 30.0 40.0 40.0 - 40.0 100.0 100.0 PH 7.39 7.45 7.32* 7.32* - 7.45 7.51* 7.41 PCO2 57* 48* 61* 61* - 44 38 45 BE 7.8* 8.2* 3.8* 3.9* - 5.4* 5.7* 2.4* HCO3 - - - - - 30.0* 29.2* 27.4* PO2 135* 86 146* 110* - 80 274* 65* O2SAT 100 99 99 99 - - - - [id number] 34.5* 33.4* 31.4* 31.4* - - - - - = values in this interval not displayed. Assessment/Plan: Acute hypercapnic respiratory failure: Patient is currently on BiPAP with an IPAP of 18 and EPAP of8 with 2L oxygen bled in at night . Patient has BiPAP at home with settings of IPAP of 18 and EPAP of 14 cm water pressure. Significant improvement with resolution of respiratory acidosis but has chronic hypercapnia. On 2L NC during the day. Wean oxygen down to room air-keep saturation more than 90percent Altered mental status: Resolved. Awake, responsive, able to answer questions. Presumed to be secondary to hypercapnic respiratory failure. CT Head without acute pathology. EEG ok. LFT ok, Ammonia ok,on Rifaximin empirically, off Lactulose Bilateral pleural effusion with attendant atelectasis: CXR 10/31/2023 shows mild pulmonary vascular congestion , will give 1 dose of Lasix today. Hypernatremia presumably secondary to diuresis. Resolved. Na at 133, follow. Patient off IV fluids.Nephrology is following Group G Streptococcus bacteremia per blood cultures at outside facility: Patient has completed Ceftriaxone , on doxycycline. For chronic prophylaxis? Id is following patient Excessive narcotic use during this hospitalization: Patient required Narcan drip initially Anasarca during the hospitalization: Echocardiogram showed EF of 45 percent, patient is slightly more fluid overloaded specially per chest x-ray and clinically. Check BNP, and give 1 dose of Lasix today History of atrial fibrillation: Patient is on beta-fe and Eliquis Code status: Full * Dipak Padilla MD - 10/31/2023 11:05 AM CDT Internal Medicine Progress Note -Hospitalist Admit Date: 10/12/2023 4:19 AM Hospital Day: 19 Clinical Course: 72 independent living, history of AFib, CHF, VALENTINA on BiPAP at nighttime, COPD, CKD was admitted for sepsis and lower extremity cellulitis Started on IV antibiotics Course complicated by significant confusion requiring Neurology consultation. Also noted severe hypernatremia. NG was placed. 10/19 mentally better 10/20 NG was pulled out, passed swallow eval, oriented 10/21 feels better overall improving, can move out of IMCU 10/22 improved, now on room air 10/23 stable New Symptoms: Patient reports a good BM. No new issues from him. Nursing reports ongoing deconditioning.. Cardiology with medication adjustments today. Objective: Vitals: 10/31/23 0212 10/31/23 0337 10/31/23 0731 10/31/23 0833 BP: (!) 154/101 166/97 Pulse: 80 83 82 Resp: Temp: 97.2 ??F (36.2 ??C) 97.4 ??F (36.3 ??C) SpO2: 97% 98% 100% 97% Weight: Height: General appearance: Awake responsive, able to communicate and ask the right questions Left pupil is bigger than right Heart: normal rate Lungs: breath sounds normal and symmetric; no rales or wheezes, he is somewhat tachypnic. Abdomen: soft without mass, non-tender, with normal bowel sounds Extremities: no clubbing, cyanosis or edema, chronic venous insufficiency changes on bilateral calves. 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 Intake/Output Summary (Last 24 hours) at 10/31/2023 1105 Last data filed at 10/31/2023 1036 Gross per 24 hour Intake 560 ml Output 1100 ml Net -540 ml Current Medications: MEDICATIONS FOR CURRENT ENCOUNTER: SCHEDULED MEDICATIONS: apixaban (Eliquis) tablet 5 mg, Oral, BID doxycycline monohydrate capsule 100 mg, Oral, QDAY insulin aspart (NovoLOG) pen 0-12 Units, Subcutaneous, 4X/day - AC & HS lactobacillus (Lactinex) granules 1 packet, Oral, TID levalbuterol (Xopenex) nebulizer solution 0.63 mg, Inhalation, q6h lidocaine (Lidoderm) 5 % patch 1 patch, Transdermal, q24h losartan (Cozaar) tablet 25 mg, Oral, QDAY pantoprazole EC (Protonix) tablet 40 mg, Oral, QDAY rifAXIMin (Xifaxan) tablet 550 mg, Oral, BID senna-docusate (Senokot-S) tablet 1 tablet, Oral, q48h spironolactone (Aldactone) tablet 12.5 mg, Oral, QDAY venlafaxine (Effexor) tablet 37.5 mg, Oral, QDAY [COMPLETED] magnesium sulfate 2 g in 50 mL bolus, Intravenous, Once [COMPLETED] morphine injection 2 mg, Intravenous, Once [START ON 11/01/2023] metoprolol succinate XL 24hr (Toprol XL) tablet 50 mg, Oral, QDAY CONTINUOUS MEDICATIONS: 0.9% NaCl flush bag, Intravenous, CONTINUOUS PRN PRN MEDICATIONS: Or Or 0.9% NaCl flush bag, Intravenous, CONTINUOUS PRN acetaminophen (Tylenol) tablet 650 mg, Oral, q6h PRN bisacodyl (Dulcolax) suppository 10 mg, Rectal, QDAY PRN dextrose 10 % IV bolus, Intravenous, PRN dextrose 10 % IV bolus, Intravenous, PRN glucagon (Glucagen) injection 1 mg, Subcutaneous, PRN glucose (Diabetic Use) oral gel, Oral, PRN HYDROcodone-acetaminophen ([place]) 7.5-325 MG tablet 1 tablet, Oral, q6h PRN hydrOXYzine HCl (Atarax) tablet 25 mg, Oral, 4X/day PRN ondansetron (disintegrating) (Zofran ODT) tablet 4 mg, Oral, q6h PRN ondansetron (Zofran) injection 4 mg, Intravenous, q4h PRN senna (Senokot) tablet 8.6 mg, Oral, BID PRN Data: Recent Labs Component Name 10/30/23 0435 10/26/23 0359 10/25/23 0411 SODIUM 133* 144 146* POTASSIUM 4.1 4.1 3.9 BUN 19 CREATININE 1.06 1.08 1.27* GLUCOSE 97 103 109* Recent Labs Component Name 10/31/23 0431 10/30/23 0435 10/29/23 0441 WBC 9.0 8.2 8.1 HGB 10.5* 10.4* 9.8* HCT 32.9* 32.0* 31.2* PLTCOUNT 219 228 216 Assessment and Plan Optimize electrolyte Physical therapy Adding sent He will need rehabilitation reported a run of V-tach, 1. Altered mental status Completely resolved 2. Septic shock presented on admission IV fluids, IV antibiotics resolved 3. Left thigh cellulitis looks to be improving almost erythema has gone Continue with IV antibiotic CT scan showed no soft tissue gas and no abscess Surgery and Infectious Disease managing On oral antibiotics at this point 4. Group G strep bacteremia Secondary to above Continued on ceftriaxone until 10/23 - now on oral doxycycline - Noted chronic suppressive antibiotics at home. 5. Lactic acidosis resolved 6. Hypernatremia Resolved at last check 7. Difficulty swallowing Likely secondary to altered mental status. - NG removed 10/20 started on diet 8. Acute on chronic kidney disease likely ATN in the settings of shock also received contrast Improving - remove cabral 10/25 - spontaneously voiding - monitor closely 9. Acute on chronic hypoxemic respiratory failure looks to be much better Extubated October 8 Currently on nasal cannula - did need supplemental oxygen increased from 2 to now 3 L - Incentive spirometry will be ordered 10. History of COPD no wheezing 11. History of CHF monitor fluid status - start losartan 25 mg daily - continue spironolactone 12.5 mg - consider SGLT2i at discharge 12. History of atrial fibrillation - changing to lopressor to Toprol XL 50 mg daily - Carly 13. Michaud cirrhosis continue rifaximin will stop lactulose 14. Hypokalemia repleted 15. 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 Right elbow pain - No Dislocation - x-ray assessment without abnormality - Superficial clot - Gout - solumedrol 40 mg x given 10/26 - colchicine 0.6 mg Q 4 hours x 2 doses given on 10/26 - resolved, suspect gout was etiology 17. Constipation - resolved - continue senna/colace every other day 18. Anxiety - atarax 25 mg QID PRN anxiety Patient's Functional Baseline prior to admit: independent Discharge Planning to Next Site of Care: SNF - awaiting facility acceptance Anticipated discharge date: 10/23 READMISSION RISK SCORE is 15 at 11:05 AM 10/31/2023. DVT prophylaxis: Eliquis Full Code Dipak Padilla MD 10/31/2023 11:05 AM Portions of this note may be dictated using voice recognition software. Variances in spelling and vocabulary are possible and unintentional. Not all errors are caught/corrected. Please notify the author if any discrepancies are noted or if the meaning of any statement is not clear. These grammatical oversights have no impact on the medical care provided to the patient. Time in which this note is created does not match the time of rounding/clinical exam. * Mary Cote MD - 10/31/2023 10:57 AM CDT Cardiology Progress Note Admit Date: 10/12/2023 4:19 AM Hospital Day: 19 Chief complaint: SOB, cough, vomiting, fatigue, left thigh pain Symptoms 10/30: Denies chest pain or shortness of breath. Feeling better. Tele: CAF with PVC's. Data Vitals: 10/31/23 0212 10/31/23 0337 10/31/23 0731 10/31/23 0833 BP: (!) 154/101 166/97 Pulse: 80 83 82 Resp: Temp: 97.2 ??F (36.2 ??C) 97.4 ??F (36.3 ??C) SpO2: 97% 98% 100% 97% Weight: Height: Intake/Output Summary (Last 24 hours) at 10/31/2023 1057 Last data filed at 10/31/2023 1036 Gross per 24 hour Intake 560 ml Output 1100 ml Net -540 ml Exam- reviewed/unchanged General appearance: elderly M alert, cooperative, no distress Chest: lungs clear Cardiovascular: irregularly irregular rate and rhythm, variable S1 , no murmur Abdomen: soft without mass, non-tender, with normal bowel sounds Extremities: trace LLE edema, left pretibial erythema NEUROPSYCH: nonfocal exam; alert, pleasant My review of labs, imaging, notes and other tests is significant for Recent Labs Component Name 10/31/23 0431 10/30/23 0435 10/29/23 0441 WBC 9.0 8.2 8.1 HGB 10.5* 10.4* 9.8* HCT 32.9* 32.0* 31.2* PLTCOUNT 219 228 216 Recent Labs Component Name 10/30/23 0435 10/26/23 0359 10/25/23 0411 SODIUM 133* 144 146* POTASSIUM 4.1 4.1 3.9 CHLORIDE 107 113* 115* CO2 20* 19* 23 BUN 22 17 19 CREATININE 1.06 1.08 1.27* GLUCOSE 97 103 109* CALCIUM 9.0 9.3 8.9 Recent Labs Component Name 08/20/20 0000 07/24/17 0508 04/23/17 1103 TSH 1.27 2.518 1.64 Magnesium Date Value Ref Range Status 10/30/2023 1.6 1.6 - 2.6 mg/dL Final Medications apixaban (Eliquis) tablet 5 mg, Oral, BID aspirin chew tablet 81 mg, Oral, QDAY doxycycline monohydrate capsule 100 mg, Oral, QDAY insulin aspart (NovoLOG) pen 0-12 Units, Subcutaneous, 4X/day - AC & HS lactobacillus (Lactinex) granules 1 packet, Oral, TID levalbuterol (Xopenex) nebulizer solution 0.63 mg, Inhalation, q6h lidocaine (Lidoderm) 5 % patch 1 patch, Transdermal, q24h metoprolol tartrate IR (Lopressor) tablet 25 mg, Oral, BID pantoprazole EC (Protonix) tablet 40 mg, Oral, QDAY rifAXIMin (Xifaxan) tablet 550 mg, Oral, BID senna-docusate (Senokot-S) tablet 1 tablet, Oral, q48h spironolactone (Aldactone) tablet 12.5 mg, Oral, QDAY venlafaxine (Effexor) tablet 37.5 mg, Oral, QDAY [COMPLETED] magnesium sulfate 2 g in 50 mL bolus, Intravenous, Once [COMPLETED] morphine injection 2 mg, Intravenous, Once Assessment Septicemia, GBS bacteremia, LLE cellulitis Chronic a-fib on Eliquis Run of NSVT Prior PE/DVT MICHAUD RADHA on CKD Dilated CM; HFmrEF, 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 Nursing consented for OT. Explained purpose of OT and patient consented to participate in therapy. RECOMMENDATIONS/PLAN: Discharge Equipment Recommendations: To Be Determined OT Discharge Recommendations: Patient would benefit from multidisciplinary therapy This recommendation is made due to ongoing OT functional needs: address care for self in the home;address functional deficits;patient to return to prior level of care Recommended Transportation Method: To be Determined PPE worn by staff: gloves PPE worn by patient: gown - patient, clean;socks - clean AM-PAC Daily Activity score for this patient is Daily Activity Raw Score:: 14 Precautions: fall SUBJECTIVE: Pt agreeable to participate in OT tx Psychosocial: Patient Behaviors: Cooperative Pt's goal for therapy: Pt's goal is to sit up in chair for breakfast OBJECTIVE: Pain Assessment: Pain Location #1 Pain Scale/Observation: Numeric (0-10) (pt has requested pain meds for his back pain, but is not due until 10) Cognition: Orientation Level: Oriented X4 Functional Mobility: Bed Mobility: Supine to Sit: Moderate Assistance;Maximum Assistance Transfers: Sit to Stand: Moderate Assistance Stand to Sit: Moderate Assistance Bed to Chair: Moderate Assistance to Left Type of Transfer: Other (Comment) (functional transfer; pt takes a few steps bed>BSC>chair) Toilet Transfers: Moderate Assistance Transfer Device: Gait belt;Walker-2 Wheeled Mobility: Mod assist short distance transfers with 2ww Balance: Mod assist with 2ww ADL Tasks: Feeding: Stand By Assist Oral Facial Hygiene: Stand By Assist (seated simple grooming) Toileting: Maximal Assistance Activity Tolerance: fair Oxygen Therapy: O2 L/M: 2 $ O2 DEVICE: Nasal Cannula $ ASSESSMENT: Pt supine in bed upon OT arrival. Mod/max assist bed mobility. Pt sits EOB with good balance for rest break; education with pt on purse lipped breathing. Mod assist sit>stand with 2ww.Pt able to take a few steps to transfer to BSC. Mod assist for standing balance with max assist forhygiene. Mod assist transfer a few steps BSC>chair. Pt able to complete simple grooming and eating breakfast after set up. Call light and phone in reach with chair alarm activated. All lines, monitors, IV's, equipment in place and intact pre and post visit. RNHelen, notified of patient's performance/location end of session. Manager Banking Toni, present to assist throughout the session. Educated patient/family in progression towards goals Please refer to the Filed Flowsheet OT Treatment for further details. Refer to care plan for goals. If this is the last Occupational Therapy visit, this serves as the discharge summary. [phone] * Keyla Martinez - 10/31/2023 8:40 AM CDT José Miguel is on 2L NC, SPO2 97%, took tx well. Will continue to monitor respiratory status. * Dipak Padilla MD - 10/30/2023 2:20 PM CDT Internal Medicine Progress Note -Hospitalist Admit Date: 10/12/2023 4:19 AM Hospital Day: 18 Clinical Course: 72 independent living, history of AFib, CHF, VALENTINA on BiPAP at nighttime, COPD, CKD was admitted for sepsis and lower extremity cellulitis Started on IV antibiotics Course complicated by significant confusion requiring Neurology consultation. Also noted severe hypernatremia. NG was placed. 10/19 mentally better 10/20 NG was pulled out, passed swallow eval, oriented 10/21 feels better overall improving, can move out of IMCU 10/22 improved, now on room air 10/23 stable New Symptoms: Patient complains of being bound up. Laxatives reduced a few days ago secondary to frequent mucusstools. Breathing is fine. Arm is fine. Nursing reports patient is anxious Objective: Vitals: 10/30/23 0405 10/30/23 0811 10/30/23 0910 10/30/23 1240 BP: 170/91 (!) 138/105 Pulse: 80 90 97 95 Resp: 18 18 22 22 Temp: 98 ??F (36.7 ??C) 97.6 ??F (36.4 ??C) SpO2: 98% 98% 97% 100% Weight: Height: General appearance: Awake responsive, able to communicate and ask the right questions Left pupil is bigger than right Heart: normal rate Lungs: breath sounds normal and symmetric; no rales or wheezes, he is somewhat tachypnic. Abdomen: soft without mass, non-tender, with normal bowel sounds Extremities: no clubbing, cyanosis or edema, chronic venous insufficiency changes on bilateral calves. 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 Intake/Output Summary (Last 24 hours) at 10/30/2023 1420 Last data filed at 10/30/2023 0800 Gross per 24 hour Intake 480 ml Output 250 ml Net 230 ml Current Medications: MEDICATIONS FOR CURRENT ENCOUNTER: SCHEDULED MEDICATIONS: apixaban (Eliquis) tablet 5 mg, Oral, BID aspirin chew tablet 81 mg, Oral, QDAY doxycycline monohydrate capsule 100 mg, Oral, QDAY insulin aspart (NovoLOG) pen 0-12 Units, Subcutaneous, 4X/day - AC & HS lactobacillus (Lactinex) granules 1 packet, Oral, TID lidocaine (Lidoderm) 5 % patch 1 patch, Transdermal, q24h metoprolol tartrate IR (Lopressor) tablet 25 mg, Oral, BID pantoprazole EC (Protonix) tablet 40 mg, Oral, QDAY rifAXIMin (Xifaxan) tablet 550 mg, Oral, BID spironolactone (Aldactone) tablet 12.5 mg, Oral, QDAY venlafaxine (Effexor) tablet 37.5 mg, Oral, QDAY [COMPLETED] magnesium sulfate 2 g in 50 mL bolus, Intravenous, Once CONTINUOUS MEDICATIONS: 0.9% NaCl flush bag, Intravenous, CONTINUOUS PRN PRN MEDICATIONS: Or Or 0.9% NaCl flush bag, Intravenous, CONTINUOUS PRN acetaminophen (Tylenol) tablet 650 mg, Oral, q6h PRN bisacodyl (Dulcolax) suppository 10 mg, Rectal, QDAY PRN dextrose 10 % IV bolus, Intravenous, PRN dextrose 10 % IV bolus, Intravenous, PRN glucagon (Glucagen) injection 1 mg, Subcutaneous, PRN glucose (Diabetic Use) oral gel, Oral, PRN HYDROcodone-acetaminophen ([place]) 5-325 MG tablet 1 tablet, Oral, q8h PRN hydrOXYzine HCl (Atarax) tablet 25 mg, Oral, 4X/day PRN ondansetron (Zofran) injection 4 mg, Intravenous, q4h PRN senna (Senokot) tablet 8.6 mg, Oral, BID PRN Data: Recent Labs Component Name 10/30/23 0435 10/26/23 0359 10/25/23 0411 SODIUM 133* 144 146* POTASSIUM 4.1 4.1 3.9 BUN 22 17 19 CREATININE 1.06 1.08 1.27* GLUCOSE 97 103 109* Recent Labs Component Name 10/30/23 0435 10/29/23 0441 10/28/23 0358 WBC 8.2 8.1 12.7* HGB 10.4* 9.8* 10.1* HCT 32.0* 31.2* 31.7* PLTCOUNT 228 216 199 Assessment and Plan Optimize electrolyte Physical therapy Adding sent He will need rehabilitation reported a run of V-tach, 1. Altered mental status Completely resolved 2. Septic shock presented on admission IV fluids, IV antibiotics resolved 3. Left thigh cellulitis looks to be improving almost erythema has gone Continue with IV antibiotic CT scan showed no soft tissue gas and no abscess Surgery and Infectious Disease managing On oral antibiotics at this point 4. Group G strep bacteremia Secondary to above Continued on ceftriaxone until 10/23 - now on oral doxycycline - Noted chronic suppressive antibiotics at home. 5. Lactic acidosis resolved 6. Hypernatremia - improved previously - mild increase today - monitor 7. Difficulty swallowing Likely secondary to altered mental status. - NG removed 10/20 started on diet 8. Acute on chronic kidney disease likely ATN in the settings of shock also received contrast Improving - remove cabral 10/25 - spontaneously voiding - monitor closely 9. Acute on chronic hypoxemic respiratory failure looks to be much better Extubated October 8 Currently on nasal cannula - did need supplemental oxygen increased from 2 to now 3 L - Incentive spirometry will be ordered 10. History of COPD no wheezing 11. History of CHF monitor fluid status 12. History of atrial fibrillation on Eliquis and metoprolol 13. Michaud cirrhosis continue rifaximin will stop lactulose 14. Hypokalemia repleted 15. 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 Right elbow pain - No Dislocation - x-ray assessment without abnormality - Superficial clot - Gout - solumedrol 40 mg x given 10/26 - colchicine 0.6 mg Q 4 hours x 2 doses given on 10/26 - resolved, suspect gout was etiology 17. Constipation - senna/colace every other day 18. Anxiety - atarax 25 mg QID PRN anxiety Patient's Functional Baseline prior to admit: independent Discharge Planning to Next Site of Care: SNF - awaiting facility acceptance Anticipated discharge date: 10/23 READMISSION RISK SCORE is 15 at 2:20 PM 10/30/2023. DVT prophylaxis: Eliquis Full Code Dipak Padilla MD 10/30/2023 2:20 PM Portions of this note may be dictated using voice recognition software. Variances in spelling and vocabulary are possible and unintentional. Not all errors are caught/corrected. Please notify the author if any discrepancies are noted or if the meaning of any statement is not clear. These grammatical oversights have no impact on the medical care provided to the patient. Time in which this note is created does not match the time of rounding/clinical exam. * Alex Cohen MD - 10/30/2023 1:28 PM CDT Images from the original note were not included. Infectious Diseases Progress Note José Miguel Nia Keys 10/13/2023 Hospital Day 18 Subjective C/o intermittent dyspnea Fatigue + No fever or chills No pruritus No abdominal pain Exam BP (!) 138/105 Pulse 95 Temp 97.6 ??F (36.4 ??C) Resp 22 Ht 1.803 m (5' 10.98 ) Wt 111.1 kg (245 lb) SpO2 100% BMI 34.19 kg/m?? General: NAD, fatigued Neuro: alert, responds appropriately Lungs: non-labored on NC, diminished at bases CV: normal rate, regular Abd: abdominal distension improved Ext: Left thigh and leg redness have resolved R IJ CVC 10/10-10/13 Data Recent Labs Component Name 10/30/23 0435 10/29/23 0441 10/28/23 0358 WBC 8.2 8.1 12.7* HGB 10.4* 9.8* 10.1* HCT 32.0* 31.2* 31.7* PLTCOUNT 228 216 199 Recent Labs Component Name 10/30/23 0435 10/26/23 0359 10/25/23 0411 SODIUM 133* 144 146* POTASSIUM 4.1 4.1 3.9 CHLORIDE 107 113* 115* CO2 20* 19* 23 BUN 22 19 CREATININE 1.06 1.08 1.27* GLUCOSE 97 103 109* CALCIUM 9.0 9.3 8.9 Recent Labs Component Name 10/26/23 0359 10/25/23 0411 10/24/23 0517 10/20/23 0353 10/19/23 0336 10/18/23 0745 10/17/23 1421 10/17/23 0336 ALBUMIN 2.4* 2.5* 2.4* - 2.5* 2.5* - 2.5* ALKPHOS - - - - 80 81 - 73 ALT - - - - 38 45 - 53 AST - - - - 31 32 - 57* TBIL - - - - 0.8 1.1 - 0.5 TPROT - - - - 6.8 6.8 - 7.1 - = values in this interval not displayed. Microbiology Blood culture 10/10 Dandre Group G Strep (R clinda) 10/11 negative Radiology 10/10 CXR: Mild interstitial edema vs senescent change 10/10 Venous Doppler LLE: No DVT 10/10 CTA Chest: Distended gallbladder, cholelithiasis. No PE 10/10 CT A/P wo: stone in gallbladder neck. L1-2 fusion. Mild peripancreatic inflammatory changes 10/11 CT LLE wo: There is a moderate cellulitis in the skin and subcutaneous soft tissues along the medial aspect of the left thigh. No gas is seen in the soft tissues. No drainable abscess collection is seen. No evidence for inflammatory change in the fascial planes of the left thigh. 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 10/15 CT C/A/P wo: Moderate bilateral loculated pleural effusions. Slightly nodular [...] blood products given an adjacent soft tissue contusioninjury in the left lateral soft tissues and a mildly displaced left posterior 11th rib fracture. Nofree air identified. Subtle hazy stranding in the upper abdominal mesentery which could reflect posttraumatic changes/mesenteric injury or mesenteritis. This is in proximity of the pancreas however is felt less likely reflect pancreatitis. Recommend correlation with patient history and lipase. Diffuse bladder wall thickening which could be seen in the setting of cystitis. Recommend correlation with urinalysis. KUB 10/21 MEDICATIONS FOR CURRENT ENCOUNTER: SCHEDULED MEDICATIONS: apixaban (Eliquis) tablet 5 mg, Oral, BID aspirin chew tablet 81 mg, Oral, QDAY doxycycline monohydrate capsule 100 mg, Oral, QDAY insulin aspart (NovoLOG) pen 0-12 Units, Subcutaneous, 4X/day - AC & HS lactobacillus (Lactinex) granules 1 packet, Oral, TID lidocaine (Lidoderm) 5 % patch 1 patch, Transdermal, q24h metoprolol tartrate IR (Lopressor) tablet 25 mg, Oral, BID pantoprazole EC (Protonix) tablet 40 mg, Oral, QDAY rifAXIMin (Xifaxan) tablet 550 mg, Oral, BID spironolactone (Aldactone) tablet 12.5 mg, Oral, QDAY venlafaxine (Effexor) tablet 37.5 mg, Oral, QDAY [COMPLETED] magnesium sulfate 2 g in 50 mL bolus, Intravenous, Once CONTINUOUS MEDICATIONS: 0.9% NaCl flush bag, Intravenous, CONTINUOUS PRN PRN MEDICATIONS: Or Or 0.9% NaCl flush bag, Intravenous, CONTINUOUS PRN acetaminophen (Tylenol) tablet 650 mg, Oral, q6h PRN bisacodyl (Dulcolax) suppository 10 mg, Rectal, QDAY PRN dextrose 10 % IV bolus, Intravenous, PRN dextrose 10 % IV bolus, Intravenous, PRN glucagon (Glucagen) injection 1 mg, Subcutaneous, PRN glucose (Diabetic Use) oral gel, Oral, PRN HYDROcodone-acetaminophen ([place]) 5-325 MG tablet 1 tablet, Oral, q8h PRN hydrOXYzine HCl (Atarax) tablet 25 mg, Oral, 4X/day PRN ondansetron (Zofran) injection 4 mg, Intravenous, q4h PRN senna (Senokot) tablet 8.6 mg, Oral, BID PRN Assessment --Group G strep septicemia with septic shock, concern for left thigh nec fasc or cellulitis with myositis and Streptococcal toxic shock syndrome CK and CRP not majorly elevated, CK seems to have peaked Weaned off pressors IVIG 10/11-10/12 CT WITHOUT contrast without evidence for gas 10/11 and 10/14. Surgery evaluated and both times recommended no surgery CT C/A/P non-specific peripancreatic finding was also reported on outside initial CT and his lipasewas normal on admit. Liver enzymes not consistent with a hepatobiliary process. Pleural effusion likely from volume state I do not think there is an additional process for how sick he is. I think this was streptococcal toxic shock from left leg in a cirrhosis patient that developed RADHA. His leg does not currently look great but in several ways it looks better than the first 3 days of admission. He is going to have a very slow recovery. CRP about 60% better over the one week since admission. 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 [id number], on chronic suppressive doxycycline 100mg Afib, hx of DVT on eliquis BPH on flomax RADHA on CKD, improved MICHAUD and cirrhosis with small lower esophageal varices on 2022 EGD, portal hypertensive gastropathy Hx of PUD with bleeding COPD Obesity, BMI 34 Plan Completed course of treatment for group G strep bacteremia and left thigh skin structure infection Continue chronic doxycycline 100mg daily ppx as per prior ID plan ID to sign off, please call PRN * Tiffany Fortune MD - 10/30/2023 11:16 AM CDT Admit Date: 10/12/2023 4:19 AM Hospital Day: 18 Follow Up Acute respiratory failure, AMS New Symptoms Patient awake and oriented to time and place. Denies CP, or dyspnea Data Vitals: 10/30/23 0322 10/30/23 0405 10/30/23 0811 10/30/23 0910 BP: 160/93 170/91 Pulse: 78 80 90 97 Resp: 18 18 18 22 Temp: 97.2 ??F (36.2 ??C) 98 ??F (36.7 ??C) SpO2: 99% 98% 98% 97% Weight: Height: Temp (30hrs) Max:98.2 ??F (36.8 ??C) Intake/Output Summary (Last 24 hours) at 10/30/2023 1116 Last data filed at 10/30/2023 0800 Gross per 24 hour Intake 720 ml Output 250 ml Net 470 ml Medications have been reviewed Exam General appearance: no distress HEENT: Grossly unremarkable Heart: regular rhythm, normal S1 and S2, Lungs: + rhonchi Abdomen: soft , NT Extremities: + edema Neuro: No focal deficits. Recent Labs Component Name 10/30/23 0435 10/29/23 0441 10/28/23 0358 WBC 8.2 8.1 12.7* HGB 10.4* 9.8* 10.1* HCT 32.0* 31.2* 31.7* PLTCOUNT 228 216 199 Recent Labs Component Name 10/30/23 0435 10/26/23 0359 10/25/23 0411 03/08/23 1347 08/23/22 2024 02/09/22 0921 08/03/21 1025 01/09/21 1055 09/05/20 1325 02/03/19 0106 09/19/17 0243 09/18/17 0003 SODIUM 133* 144 146* - - - 139 137 140 - - - NA - - - - 141 - - - - - 138 140 POTASSIUM 4.1 4.1 3.9 - 4.6* - 4.7 4.4 4.2 - 4.9* 3.4* CHLORIDE 107 113* 115* - - - 102 102 103 - - - CO2 20* 19* 23 - 26 - 27 26 28 - 34* 35* BUN 22 17 19 - 26 - 41* 50* 27* - 26 25 CREATININE 1.06 1.08 1.27* - 1.60* - 1.89* 2.07* 1.46* - 0.6 0.6 GLUCOSE 97 103 109* - 113 - 124* 144* 109* - 153* 135* CALCIUM 9.0 9.3 8.9 - 10.3* - 9.6 9.7 9.9 - 9.1 9.0 EGFR 74* 72* 59* - 45* - 35* 31* 48* - >60 >60 EGFRAFR - - - - - - 40* 36* 55* - - - - = values in this interval not displayed. @ Recent Labs Component Name 10/17/23 2117 10/17/23 1434 10/17/23 0811 10/17/23 0420 10/12/23 0508 09/10/17 0557 09/09/17 0841 09/09/17 0422 FIO2 - 30.0 40.0 40.0 - 40.0 100.0 100.0 PH 7.39 7.45 7.32* 7.32* - 7.45 7.51* 7.41 PCO2 57* 48* 61* 61* - 44 38 45 BE 7.8* 8.2* 3.8* 3.9* - 5.4* 5.7* 2.4* HCO3 - - - - - 30.0* 29.2* 27.4* PO2 135* 86 146* 110* - 80 274* 65* O2SAT 100 99 99 99 - - - - [id number] 34.5* 33.4* 31.4* 31.4* - - - - - = values in this interval not displayed. Assessment/Plan: Acute hypercapnic respiratory failure: Patient is currently on BiPAP with an IPAP of 18 and EPAP of8 with 2L oxygen bled in at night . Patient has BiPAP at home with settings of IPAP of 18 and EPAP of 14 cm water pressure. Significant improvement with resolution of respiratory acidosis but has chronic hypercapnia. On 1L NC during the day. Wean oxygen down to room air-keep saturation more than 90percent Altered mental status: Resolved. Awake, responsive, able to answer questions. Presumed to be secondary to hypercapnic respiratory failure. CT Head without acute pathology. EEG ok. LFT ok, Ammonia ok,on Rifaximin empirically, off Lactulose Bilateral pleural effusion with attendant atelectasis: CXR 10/17/2023 shows significant improvement with small let pleural effusion. Repeat CXR shows bibasilar atelectasis. Hypernatremia presumably secondary to diuresis. Na at 146. Patient off IV fluids. Nephrology is following Group G Streptococcus bacteremia per blood cultures at outside facility: Patient has completed Ceftriaxone , on doxycycline. For chronic prophylaxis? Id is following patient Excessive narcotic use during this hospitalization: Patient required Narcan drip initially Anasarca during the hospitalization: Echocardiogram showed EF of 45 percent, BNP remains elevated but patient is clinically less fluid overloaded. Diuretics are being held secondary to hypernatremia History of atrial fibrillation: Patient is on beta-fe and Eliquis Code status: Full OK for D/C from Pulmonary standpoint. Awaiting SNF approval * Skip Bello MD - 10/30/2023 8:52 AM CDT Cardiology Progress Note Admit Date: 10/12/2023 4:19 AM Hospital Day: 18 Chief complaint: SOB, cough, vomiting, fatigue, left thigh pain Symptoms Denies chest pain or shortness of breath. Tele: CAF with PVC's. Data Vitals: 10/29/23 2348 10/30/23 0322 10/30/23 0405 10/30/23 0811 BP: 157/85 160/93 Pulse: 90 78 80 90 Resp: Temp: 97.4 ??F (36.3 ??C) 97.2 ??F (36.2 ??C) SpO2: 93% 99% 98% 98% Weight: Height: Intake/Output Summary (Last 24 hours) at 10/30/2023 0852 Last data filed at 10/30/2023 0636 Gross per 24 hour Intake 720 ml Output 250 ml Net 470 ml Exam- reviewed/unchanged General appearance: alert, cooperative, no distress Chest: diminished breath sounds Cardiovascular: irregular rhythm, normal S1 and S2 Abdomen: soft without mass, non-tender, with normal bowel sounds Extremities: trace LE edema, left thigh erythema/swelling, right arm erythema My review of labs, imaging, notes and other tests is significant for Recent Labs Component Name 10/30/23 0435 10/29/23 0441 10/28/23 0358 WBC 8.2 8.1 12.7* HGB 10.4* 9.8* 10.1* HCT 32.0* 31.2* 31.7* PLTCOUNT 228 216 199 Recent Labs Component Name 10/26/23 0359 10/25/23 0411 10/24/23 0517 SODIUM 144 146* 144 POTASSIUM 4.1 3.9 3.6 CHLORIDE 113* 115* 115* CO2 19* 23 21* BUN 17 19 22 CREATININE 1.08 1.27* 1.29* GLUCOSE 103 109* 101 CALCIUM 9.3 8.9 8.8 Recent Labs Component Name 08/20/20 0000 07/24/17 0508 04/23/17 1103 TSH 1.27 2.518 1.64 Magnesium Date Value Ref Range Status 10/30/2023 1.6 1.6 - 2.6 mg/dL Final Medications albuterol-ipratropium (Duo-Neb) nebulizer solution 3 mL, Inhalation, q6h apixaban (Eliquis) tablet 5 mg, Oral, BID aspirin chew tablet 81 mg, Oral, QDAY doxycycline monohydrate capsule 100 mg, Oral, QDAY insulin aspart (NovoLOG) pen 0-12 Units, Subcutaneous, 4X/day - AC & HS lactobacillus (Lactinex) granules 1 packet, Oral, TID lidocaine (Lidoderm) 5 % patch 1 patch, Transdermal, q24h metoprolol tartrate IR (Lopressor) tablet 25 mg, Oral, BID pantoprazole EC (Protonix) tablet 40 mg, Oral, QDAY rifAXIMin (Xifaxan) tablet 550 mg, Oral, BID venlafaxine (Effexor) tablet 37.5 mg, Oral, QDAY Readmission Risk Score: If there is no EVENTS ASSOCIATE Total Score indicated, this patient has yet to be assessed for Readmission Risk or the BNA Score was < 10. If the patient has been assessed, the score is: Assessment Septicemia Chronic a-fib on Eliquis Run of NSVT Prior PE/DVT MICHAUD RADHA on CKD Dilated CM; EF 45% Plan Supplement Mag today Continue Eliquis. Antibiotics per ID Check BMP, recommend restarting aldactone if labs normal Plan SNF on dc Patient follows with cardiology at [facility] Skip Bello MD 10/30/2023 * Mily Muñoz RCP - 10/30/2023 8:15 AM CDT José Miguel remains on 2 L/M NC. Bronchodilator treatment given per order. Breath sounds diminished bilaterally. Will continue to monitor respiratory status and oxygenation. * Dipak Padilla MD - 10/29/2023 1:27 PM CDT Internal Medicine Progress Note -Hospitalist Admit Date: 10/12/2023 4:19 AM Hospital Day: 17 Clinical Course: 72 independent living, history of AFib, CHF, VALENTINA on BiPAP at nighttime, COPD, CKD was admitted for sepsis and lower extremity cellulitis Started on IV antibiotics Course complicated by significant confusion requiring Neurology consultation. Also noted severe hypernatremia. NG was placed. 10/19 mentally better 10/20 NG was pulled out, passed swallow eval, oriented 10/21 feels better overall improving, can move out of IMCU 10/22 improved, now on room air 10/23 stable New Symptoms: Doing okay, right arm pain is significantly improved again - moving without apparent limitation. Respiratory did need to increase his oxygen from 2 to now 3 L . Nursing without additional concerns. Objective: Vitals: 10/29/23 0416 10/29/23 0744 10/29/23 1011 10/29/23 1119 BP: 141/74 138/81 Pulse: 86 77 58 87 Resp: Temp: 97.8 ??F (36.6 ??C) 97.6 ??F (36.4 ??C) SpO2: 100% 95% 95% 97% Weight: Height: General appearance: Awake responsive, able to communicate and ask the right questions Left pupil is bigger than right Heart: normal rate Lungs: breath sounds normal and symmetric; no rales or wheezes, he is somewhat tachypnic. Abdomen: soft without mass, non-tender, with normal bowel sounds Extremities: no clubbing, cyanosis or edema, chronic venous insufficiency changes on bilateral calves. 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 Intake/Output Summary (Last 24 hours) at 10/29/2023 1327 Last data filed at 10/29/2023 0929 Gross per 24 hour Intake 480 ml Output 400 ml Net 80 ml Current Medications: MEDICATIONS FOR CURRENT ENCOUNTER: SCHEDULED MEDICATIONS: albuterol-ipratropium (Duo-Neb) nebulizer solution 3 mL, Inhalation, q6h apixaban (Eliquis) tablet 5 mg, Oral, BID aspirin chew tablet 81 mg, Oral, QDAY doxycycline monohydrate capsule 100 mg, Oral, QDAY insulin aspart (NovoLOG) pen 0-12 Units, Subcutaneous, 4X/day - AC & HS lactobacillus (Lactinex) granules 1 packet, Oral, TID lidocaine (Lidoderm) 5 % patch 1 patch, Transdermal, q24h metoprolol tartrate IR (Lopressor) tablet 25 mg, Oral, BID pantoprazole EC (Protonix) tablet 40 mg, Oral, QDAY rifAXIMin (Xifaxan) tablet 550 mg, Oral, BID venlafaxine (Effexor) tablet 37.5 mg, Oral, QDAY CONTINUOUS MEDICATIONS: 0.9% NaCl flush bag, Intravenous, CONTINUOUS PRN PRN MEDICATIONS: Or Or 0.9% NaCl flush bag, Intravenous, CONTINUOUS PRN acetaminophen (Tylenol) tablet 650 mg, Oral, q6h PRN bisacodyl (Dulcolax) suppository 10 mg, Rectal, QDAY PRN dextrose 10 % IV bolus, Intravenous, PRN dextrose 10 % IV bolus, Intravenous, PRN glucagon (Glucagen) injection 1 mg, Subcutaneous, PRN glucose (Diabetic Use) oral gel, Oral, PRN HYDROcodone-acetaminophen ([place]) 5-325 MG tablet 1 tablet, Oral, q8h PRN ondansetron (Zofran) injection 4 mg, Intravenous, q4h PRN senna (Senokot) tablet 8.6 mg, Oral, BID PRN Data: Recent Labs Component Name 10/26/23 0359 10/25/23 0411 10/24/23 0517 SODIUM 144 146* 144 POTASSIUM 4.1 3.9 3.6 BUN 17 22 CREATININE 1.08 1.27* 1.29* GLUCOSE 103 109* 101 Recent Labs Component Name 10/29/23 0441 10/28/23 0358 10/27/23 0737 WBC 8.1 12.7* 14.5* HGB 9.8* 10.1* 10.2* HCT 31.2* 31.7* 32.2* PLTCOUNT 216 199 196 Assessment and Plan Optimize electrolyte Physical therapy Adding sent He will need rehabilitation reported a run of V-tach, 1. Altered mental status Completely resolved 2. Septic shock presented on admission IV fluids, IV antibiotics resolved 3. Left thigh cellulitis looks to be improving almost erythema has gone Continue with IV antibiotic CT scan showed no soft tissue gas and no abscess Surgery and Infectious Disease managing On oral antibiotics at this point 4. Group G strep bacteremia Secondary to above Continued on ceftriaxone until 10/23 - now on oral doxycycline - Noted chronic suppressive antibiotics at home. 5. Lactic acidosis resolved 6. Hypernatremia - improved previously - mild increase today - monitor 7. Difficulty swallowing Likely secondary to altered mental status. - NG removed 10/20 started on diet 8. Acute on chronic kidney disease likely ATN in the settings of shock also received contrast Improving - remove cabral 10/25 - spontaneously voiding - monitor closely 9. Acute on chronic hypoxemic respiratory failure looks to be much better Extubated October 8 Currently on nasal cannula - did need supplemental oxygen increased from 2 to now 3 L - Incentive spirometry will be ordered 10. History of COPD no wheezing 11. History of CHF monitor fluid status 12. History of atrial fibrillation on Eliquis and metoprolol 13. Michaud cirrhosis continue rifaximin will stop lactulose 14. Hypokalemia repleted 15. 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 [id number], on chronic suppressive doxycycline 100mg 16. Right elbow pain - No Dislocation - x-ray assessment without abnormality - Superficial clot - Gout - solumedrol 40 mg x given 10/26 - colchicine 0.6 mg Q 4 hours x 2 doses given on 10/26 - nearly resolved, suspect gout was diagnoses Patient's Functional Baseline prior to admit: independent Discharge Planning to Next Site of Care: SNF - awaiting facility acceptance Anticipated discharge date: 10/23 READMISSION RISK SCORE is 15 at 1:27 PM 10/29/2023. DVT prophylaxis: Eliquis Full Code Dipak Padilla MD 10/29/2023 1:27 PM Portions of this note may be dictated using voice recognition software. Variances in spelling and vocabulary are possible and unintentional. Not all errors are caught/corrected. Please notify the author if any discrepancies are noted or if the meaning of any statement is not clear. These grammatical oversights have no impact on the medical care provided to the patient. Time in which this note is created does not match the time of rounding/clinical exam. * Tiffany Fortune MD - 10/29/2023 11:59 AM CDT Admit Date: 10/12/2023 4:19 AM Hospital Day: 17 Follow Up Acute respiratory failure, AMS New Symptoms Patient awake and oriented to time and place. Denies CP, or dyspnea Data Vitals: 10/29/23 0416 10/29/23 0744 10/29/23 1011 10/29/23 1119 BP: 141/74 138/81 Pulse: 86 77 58 87 Resp: 20 Temp: 97.8 ??F (36.6 ??C) 97.6 ??F (36.4 ??C) SpO2: 100% 95% 95% 97% Weight: Height: Temp (30hrs) Max:98.1 ??F (36.7 ??C) Intake/Output Summary (Last 24 hours) at 10/29/2023 1159 Last data filed at 10/29/2023 0929 Gross per 24 hour Intake 720 ml Output 400 ml Net 320 ml Medications have been reviewed Exam General appearance: no distress HEENT: Grossly unremarkable Heart: regular rhythm, normal S1 and S2, Lungs: breath sounds clear Abdomen: soft , NT Extremities: + edema Neuro: No focal deficits. Recent Labs Component Name 10/29/23 0441 10/28/23 0358 10/27/23 0737 WBC 8.1 12.7* 14.5* HGB 9.8* 10.1* 10.2* HCT 31.2* 31.7* 32.2* PLTCOUNT 216 199 196 Recent Labs Component Name 10/26/23 0359 10/25/23 0411 10/24/23 0517 03/08/23 1347 08/23/224 02/09/22 0921 08/03/21 1025 01/09/21 1055 09/05/20 1325 02/03/19 0106 09/19/17 0243 09/18/17 0003 SODIUM 144 146* 144 - - - 139 137 140 - - - NA - - - - 141 - - - - - 138 140 POTASSIUM 4.1 3.9 3.6 - 4.6* - 4.7 4.4 4.2 - 4.9* 3.4* CHLORIDE 113* 115* 115* - - - 102 102 103 - - - CO2 19* 23 21* - 26 - 27 26 28 - 34* 35* BUN 17 19 - 26 - 41* 50* 27* - 26 25 CREATININE 1.08 1.27* 1.29* - 1.60* - 1.89* 2.07* 1.46* - 0.6 0.6 GLUCOSE 103 109* 101 - 113 - 124* 144* 109* - 153* 135* CALCIUM 9.3 8.9 8.8 - 10.3* - 9.6 9.7 9.9 - 9.1 9.0 EGFR 72* 59* 58* - 45* - 35* 31* 48* - >60 >60 EGFRAFR - - - - - - 40* 36* 55* - - - - = values in this interval not displayed. @ Recent Labs Component Name 10/17/23 2117 10/17/23 1434 10/17/23 0811 10/17/23 0420 10/12/23 0508 09/10/17 0557 09/09/17 0841 09/09/17 0422 FIO2 - 30.0 40.0 40.0 - 40.0 100.0 100.0 PH 7.39 7.45 7.32* 7.32* - 7.45 7.51* 7.41 PCO2 57* 48* 61* 61* - 44 38 45 BE 7.8* 8.2* 3.8* 3.9* - 5.4* 5.7* 2.4* HCO3 - - - - - 30.0* 29.2* 27.4* PO2 135* 86 146* 110* - 80 274* 65* O2SAT 100 99 99 99 - - - - [id number] 34.5* 33.4* 31.4* 31.4* - - - - - = values in this interval not displayed. Assessment/Plan: Acute hypercapnic respiratory failure: Patient is currently on BiPAP with an IPAP of 18 and EPAP of8 with 2L oxygen bled in at night . Patient has BiPAP at home with settings of IPAP of 18 and EPAP of 14 cm water pressure. Significant improvement with resolution of respiratory acidosis but has chronic hypercapnia. On 1L NC during the day. Wean oxygen down to room air-keep saturation more than 90percent Altered mental status: Resolved. Awake, responsive, able to answer questions. Presumed to be secondary to hypercapnic respiratory failure. CT Head without acute pathology. EEG ok. LFT ok, Ammonia ok,on Rifaximin empirically, off Lactulose Bilateral pleural effusion with attendant atelectasis: CXR 10/17/2023 shows significant improvement with small let pleural effusion. Repeat CXR shows bibasilar atelectasis. Hypernatremia presumably secondary to diuresis. Na at 146. Patient off IV fluids. Nephrology is following Group G Streptococcus bacteremia per blood cultures at outside facility: Patient has completed Ceftriaxone , on doxycycline. For chronic prophylaxis? Id is following patient Excessive narcotic use during this hospitalization: Patient required Narcan drip initially Anasarca during the hospitalization: Echocardiogram showed EF of 45 percent, BNP remains elevated but patient is clinically less fluid overloaded. Diuretics are being held secondary to hypernatremia History of atrial fibrillation: Patient is on beta-fe and Eliquis Code status: Full OK for D/C from Pulmonary standpoint. Awaiting SNF approval * Keyla Martinez - 10/29/2023 10:18 AM CDT José Miguel is on 3L NC, SPO2 95%, took tx well. Will continue to monitor respiratory status. * Skip Bello MD - 10/29/2023 8:45 AM CDT Cardiology Progress Note Admit Date: 10/12/2023 4:19 AM Hospital Day: 17 Chief complaint: SOB, cough, vomiting, fatigue, left thigh pain Symptoms Denies chest pain or shortness of breath. Tele: CAF with PVC's. Data Vitals: 10/29/23 0400 10/29/23 0406 10/29/23 0416 10/29/23 0744 BP: 138/78 141/74 Pulse: 78 86 86 77 Resp: 18 22 20 Temp: 97.8 ??F (36.6 ??C) 97.8 ??F (36.6 ??C) SpO2: 97% 100% 100% 95% Weight: Height: Intake/Output Summary (Last 24 hours) at 10/29/2023 0845 Last data filed at 10/29/2023 0407 Gross per 24 hour Intake 720 ml Output 900 ml Net -180 ml Exam- reviewed/unchanged General appearance: alert, cooperative, no distress Chest: diminished breath sounds Cardiovascular: irregular rhythm, normal S1 and S2 Abdomen: soft without mass, non-tender, with normal bowel sounds Extremities: trace LE edema, left thigh erythema/swelling, right arm erythema My review of labs, imaging, notes and other tests is significant for Recent Labs Component Name 10/29/23 0441 10/28/23 0358 10/27/23 0737 WBC 8.1 12.7* 14.5* HGB 9.8* 10.1* 10.2* HCT 31.2* 31.7* 32.2* PLTCOUNT 216 199 196 Recent Labs Component Name 10/26/23 0359 10/25/23 0411 10/24/23 0517 SODIUM 144 146* 144 POTASSIUM 4.1 3.9 3.6 CHLORIDE 113* 115* 115* CO2 19* 23 21* BUN CREATININE 1.08 1.27* 1.29* GLUCOSE 103 109* 101 CALCIUM 9.3 8.9 8.8 Recent Labs Component Name 08/20/20 0000 07/24/17 0508 04/23/17 1103 TSH 1.27 2.518 1.64 Medications albuterol-ipratropium (Duo-Neb) nebulizer solution 3 mL, Inhalation, q6h apixaban (Eliquis) tablet 5 mg, Oral, BID aspirin chew tablet 81 mg, Oral, QDAY doxycycline monohydrate capsule 100 mg, Oral, QDAY insulin aspart (NovoLOG) pen 0-12 Units, Subcutaneous, 4X/day - AC & HS lactobacillus (Lactinex) granules 1 packet, Oral, TID lidocaine (Lidoderm) 5 % patch 1 patch, Transdermal, q24h metoprolol tartrate IR (Lopressor) tablet 25 mg, Oral, BID pantoprazole EC (Protonix) tablet 40 mg, Oral, QDAY rifAXIMin (Xifaxan) tablet 550 mg, Oral, BID venlafaxine (Effexor) tablet 37.5 mg, Oral, QDAY Readmission Risk Score: If there is no EVENTS ASSOCIATE Total Score indicated, this patient has yet to be assessed for Readmission Risk or the BNA Score was < 10. If the patient has been assessed, the score is: Assessment Septicemia Chronic a-fib on Eliquis Run of NSVT Prior PE/DVT MICHAUD RADHA on CKD Dilated CM; EF 45% Plan Supplement Mag as needed. Continue Eliquis. Antibiotics per ID Consider restarting aldactone today. Appears compensated today. Plan SNF on dc Patient follows with cardiology at [facility] Skip Bello MD 10/29/2023 * Sonia Hunter RN - 10/29/2023 4:27 AM CDT Problem: Mobility Goal: LTG - Patient will ambulate household distance Description: Ind with AAD and supervision Outcome: Not Progressing Goal: STG - Patient will tolerate ____ repetitions of exercises. Description: 10-20 repetitions of LE exercises for strength and endurance. Outcome: Progressing Problem: Impaired Gas Exchange Goal: Resp rate/effort will be within specified limits Description: To maintain oxygen within normal parameters. RT to monitor. Outcome: Progressing Problem: Oral Intake: Inadequate oral intake Goal: Total intake will meet estimated nutrient needs Outcome: Progressing Problem: Fall Risk Goal: Fall risk and fall related injury risk are minimized (interventions related to the fall risk can be found in the flowsheet documentation) Outcome: Progressing Problem: Pain/Discomfort Goal: Patient exhibits reduced pain/discomfort as evidenced by pain scores Outcome: Progressing Goal: Patient uses pharmacological and non-pharmacological pain management strategies. Outcome: Progressing Goal: Patient verbalizes acceptable level of pain relief and ability to engage in desired activity. Outcome: Progressing Problem: Ineffective breathing pattern related to obstructive sleep apnea Goal: Maintains optimal sleep pattern, as evidenced by relaxed breathing at normal rate and depth. Outcome: Progressing Goal: Adheres to CPAP (Continuous Positive Airway Pressure) device regimen as prescribed. Outcome: Progressing Problem: Sleep deprivation related to sleep apnea. Goal: Achieves restful, refreshing sleep pattern. Outcome: Progressing Problem: Transfers Goal: LTG - Patient will transfer from one surface to another Description: Ind with AAD Outcome: Progressing Goal: STG - Patient will perform bed mobility Description: Min assist Outcome: Progressing Problem: General Goal: STG-Patient will Description: Tolerate sitting EOB for 10 minutes with good sitting balance in preparation for seated ADLs. Outcome: Progressing Goal: STG-Patient will Description: Complete oral/facial hygiene with set up assist Outcome: Progressing Goal: STG-Patient will Description: Perform UB dressing tasks with set up assist Outcome: Progressing Problem: Potential for Urinary Catheter-Associated Infection Goal: Signs and Symptoms of urinary catheter-associated infection are avoided Outcome: Progressing Goal: Normal urinary patterns are established within parameters of age and disease process Outcome: Progressing Problem: Skin Integrity Goal: Skin integrity is maintained or improved Outcome: Progressing Problem: Ineffective Airway Clearance Goal: Patent airway Outcome: Progressing * Nora Raza RCP - 10/28/2023 9:56 PM CDT Problem: Impaired Gas Exchange Goal: Resp rate/effort will be within specified limits Description: To maintain oxygen within normal parameters. RT to monitor. Flowsheets (Taken 10/28/20232152) Resp: 18 SpO2: 100 % Note: José Miguel will maintain oxygen saturation within normal parameters. * Edwina Babcock PT - 10/28/2023 3:32 PM CDT Physical Therapy Treatment Summary Chart review completed. Nursing consented for PT. Explained purpose of PT and patient consented to participate in therapy. RECOMMENDATIONS/PLAN: continue with skilled PT per POC Discharge Equipment Recommendations: To Be Determined PT Discharge Recommendations: Patient would benefit from multidisciplinary therapy This recommendation is made due to ongoing PT functional needs: address functional deficits;patientto return to prior level of care;patient is motivated and actively participating in therapy;patienthas ability to improve with skilled therapy intervention Recommended Transportation Method: Stretcher/Ambulance PPE worn by staff: gloves;mask - procedural PPE worn by patient: gown - patient, clean;socks - clean AM-PAC Basic mobility score for this patient is Mobility Raw Score:: 10 SUBJECTIVE: Subjective: consents Patient's Primary Concern: needs to have a bowel movement Patient's Goal for the Day: to go to the bathroom Pain Assessment: Pain Location #1 Pain Scale/Observation: Numeric (0-10) Pain Rating Score #1: 3 Pain Location : Arm;Hand;Wrist Pain Orientation: Right OBJECTIVE: Cognition: Orientation Level: Oriented X4 Level of Consciousness-Adult: Alert Participation: Active Participation Precautions: fall, skin, O2, purewick, Bed Mobility: Rolling: Activity Does Not Occur Supine to Sit: Maximum Assistance Sit to Supine: Activity Does Not Occur Transfers: Sit to Stand: Moderate Assistance;X 2;Requires Verbal Cues for Safety;Requires Physical Cues for Safety;Requires Verbal Cues for Technique;Requires Physical Cues for Technique Stand to Sit: Moderate Assistance;X 2;Requires Verbal Cues for Safety;Requires Physical Cues for Safety;Requires Verbal Cues for Technique;Requires Physical Cues for Technique Bed to Chair: Moderate Assistance to Left;X 2;Requires Verbal Cues for Safety;Requires Physical Cues for Safety;Requires Verbal Cues for Technique;Requires Physical Cues for Technique Type of Transfer: Stand Pivot Transfer Toilet Transfers: Moderate Assistance;X 2;Requires Verbal Cues for Safety;Requires Physical Cues for Safety;Requires Verbal Cues for Technique;Requires Physical Cues for Technique (to [facility]) Transfer Device: Gait belt;Walker-2 Wheeled Mobility: Distance Ambulated (ft): (few steps) Ambulation: Assistive Device: Gait Belt;Walker-2 Wheeled Ambulation: Level of Assistance: Moderate Assistance;X 2;Requires Verbal Cues for Safety;Requires Physical Cues for Safety;Requires Verbal Cues for Technique;Requires Physical Cues for Technique Ambulation: Gait Deviations: Base of Support - Decreased;Maira - Decreased;Heel Strike - Decreased;Increased Trunk Flexion;Increased Weight Bearing through Upper Extremity;Push Off - Decreased;StepLength - Decreased Weight Bearing Status-LLE: Weight Bearing as Tolerated Weight Bearing Status-RLE: Weight Bearing as Tolerated Weight Bearing Status-LUE: Weight Bearing as Tolerated Weight Bearing Status-RUE: Weight Bearing as Tolerated Activity Tolerance: Activity Tolerance: Requires rest breaks Vital signs: SpO2 91-97% during session on 2L ASSESSMENT: Pt presents in bed and agreeable to therapy. He is A&Ox4 and reports 3/10 R hand/wrist pain. He reports needing to have a BM and agreeable to trial BS. Performs supine to sit EOB with max A. He performs sit to stand from EOB to 2ww with mod A x 2. He takes a few steps for a stand pivot transfer to the BSC. Total assist for apple cleaning with patient maintaining fair standing balance with mod A x 2. Patient takes few more steps to pivot transfer to recliner. Session ended with patient in recliner, legs elevated, and all needs met. Patient is audibly SOB after mobility with SpO2 between 91-97% during session. Call light and phone in reach with chair alarm activated. All lines, monitors, IV's, equipment in place and intact pre and post visit. Pt educated in PT plan of care, fall precautions, and benefits of OOB activity. RNZachary, notified of patient's performance/location end of session. Williams, Manager Banking, present to assist throughout the session. Please refer to the Filed Flowsheet for further details. Refer to Plan of Care for PT goals. If this is the last Physical Therapy visit, this note serves as the discharge summary. [id number] PT * Dipak Padilla MD - 10/28/2023 2:38 PM CDT Internal Medicine Progress Note -Hospitalist Admit Date: 10/12/2023 4:19 AM Hospital Day: 16 Clinical Course: 72 independent living, history of AFib, CHF, VALENTINA on BiPAP at nighttime, COPD, CKD was admitted for sepsis and lower extremity cellulitis Started on IV antibiotics Course complicated by significant confusion requiring Neurology consultation. Also noted severe hypernatremia. NG was placed. 10/19 mentally better 10/20 NG was pulled out, passed swallow eval, oriented 10/21 feels better overall improving, can move out of IMCU 10/22 improved, now on room air 10/23 stable New Symptoms: Doing okay, right arm pain is significantly improved. No new issues. Objective: Vitals: 10/28/23 0759 10/28/23 0850 10/28/23 1045 10/28/23 1415 BP: 141/82 132/82 Pulse: 75 83 74 81 Resp: 22 18 20 18 Temp: 98.1 ??F (36.7 ??C) 98 ??F (36.7 ??C) SpO2: 98% 99% 99% 95% Weight: Height: General appearance: Awake responsive, able to communicate and ask the right questions Left pupil is bigger than right Heart: normal rate Lungs: breath sounds normal and symmetric; no rales or wheezes Abdomen: soft without mass, non-tender, with normal bowel sounds Extremities: no clubbing, cyanosis or edema, chronic venous insufficiency changes on bilateral calves. 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 Intake/Output Summary (Last 24 hours) at 10/28/2023 1438 Last data filed at 10/28/2023 1416 Gross per 24 hour Intake 1500 ml Output 650 ml Net 850 ml Current Medications: MEDICATIONS FOR CURRENT ENCOUNTER: SCHEDULED MEDICATIONS: albuterol-ipratropium (Duo-Neb) nebulizer solution 3 mL, Inhalation, q6h apixaban (Eliquis) tablet 5 mg, Oral, BID aspirin chew tablet 81 mg, Oral, QDAY doxycycline monohydrate capsule 100 mg, Oral, QDAY insulin aspart (NovoLOG) pen 0-12 Units, Subcutaneous, 4X/day - AC & HS lactobacillus (Lactinex) granules 1 packet, Oral, TID lidocaine (Lidoderm) 5 % patch 1 patch, Transdermal, q24h metoprolol tartrate IR (Lopressor) tablet 25 mg, Oral, BID pantoprazole EC (Protonix) tablet 40 mg, Oral, QDAY rifAXIMin (Xifaxan) tablet 550 mg, Oral, BID venlafaxine (Effexor) tablet 37.5 mg, Oral, QDAY [COMPLETED] colchicine tablet 0.6 mg, Oral, q4h [COMPLETED] methylPREDNISolone sod succ (SOLU-Medrol) injection 40 mg, Intravenous, Once CONTINUOUS MEDICATIONS: 0.9% NaCl flush bag, Intravenous, CONTINUOUS PRN PRN MEDICATIONS: Or Or 0.9% NaCl flush bag, Intravenous, CONTINUOUS PRN acetaminophen (Tylenol) tablet 650 mg, Oral, q6h PRN bisacodyl (Dulcolax) suppository 10 mg, Rectal, QDAY PRN dextrose 10 % IV bolus, Intravenous, PRN dextrose 10 % IV bolus, Intravenous, PRN glucagon (Glucagen) injection 1 mg, Subcutaneous, PRN glucose (Diabetic Use) oral gel, Oral, PRN HYDROcodone-acetaminophen ([place]) 5-325 MG tablet 1 tablet, Oral, q8h PRN ondansetron (Zofran) injection 4 mg, Intravenous, q4h PRN senna (Senokot) tablet 8.6 mg, Oral, BID PRN Data: Recent Labs Component Name 10/26/23 0359 10/25/23 0411 10/24/23 0517 SODIUM 144 146* 144 POTASSIUM 4.1 3.9 3.6 BUN 17 19 22 CREATININE 1.08 1.27* 1.29* GLUCOSE 103 109* 101 Recent Labs Component Name 10/28/23 0358 10/27/23 0737 10/26/23 0639 WBC 12.7* 14.5* 17.7* HGB 10.1* 10.2* 10.8* HCT 31.7* 32.2* 33.3* PLTCOUNT 199 196 195 Assessment and Plan Optimize electrolyte Physical therapy Adding sent He will need rehabilitation reported a run of V-tach, 1. Altered mental status Completely resolved 2. Septic shock presented on admission IV fluids, IV antibiotics resolved 3. Left thigh cellulitis looks to be improving almost erythema has gone Continue with IV antibiotic CT scan showed no soft tissue gas and no abscess Surgery and Infectious Disease managing On oral antibiotics at this point 4. Group G strep bacteremia Secondary to above Continued on ceftriaxone until 10/23 - now on oral doxycycline - Noted chronic suppressive antibiotics at home. 5. Lactic acidosis resolved 6. Hypernatremia - improved previously - mild increase today - monitor 7. Difficulty swallowing Likely secondary to altered mental status. - NG removed 10/20 started on diet 8. Acute on chronic kidney disease likely ATN in the settings of shock also received contrast Improving - remove cabral 10/25 - spontaneously voiding - monitor closely 9. Acute on chronic hypoxemic respiratory failure looks to be much better Extubated October 8 Currently on nasal cannula 10. History of COPD no wheezing 11. History of CHF monitor fluid status 12. History of atrial fibrillation on Eliquis and metoprolol 13. Michaud cirrhosis continue rifaximin will stop lactulose 14. Hypokalemia repleted 15. 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 Right elbow pain - No Dislocation - x-ray assessment without abnormality - Superficial clot - ? Gout - solumedrol 40 mg x given 10/26 - colchicine 0.6 mg Q 4 hours x 2 doses given on 10/26 - overall improving, monitor Patient's Functional Baseline prior to admit: independent Discharge Planning to Next Site of Care: SNF - awaiting facility acceptance Anticipated discharge date: 10/23 READMISSION RISK SCORE is 16 at 2:38 PM 10/28/2023. DVT prophylaxis: Eliquis Full Code Dipak Padilla MD 10/28/2023 2:38 PM Portions of this note may be dictated using voice recognition software. Variances in spelling and vocabulary are possible and unintentional. Not all errors are caught/corrected. Please notify the author if any discrepancies are noted or if the meaning of any statement is not clear. These grammatical oversights have no impact on the medical care provided to the patient. Time in which this note is created does not match the time of rounding/clinical exam. * Aneta Whittington MD - 10/28/2023 1:59 PM CDT Cardiology Progress Note Admit Date: 10/12/2023 4:19 AM Hospital Day: 16 Chief complaint: SOB, cough, vomiting, fatigue, left thigh pain Symptoms Appears comfortable Tele- Aflutter with PVCs Data Vitals: 10/28/23 0343 10/28/23 0759 10/28/23 0850 10/28/23 1045 BP: 145/89 141/82 132/82 Pulse: 81 75 83 74 Resp: 14 18 20 Temp: 97.4 ??F (36.3 ??C) 98.1 ??F (36.7 ??C) 98 ??F (36.7 ??C) SpO2: 98% 98% 99% 99% Weight: Height: Intake/Output Summary (Last 24 hours) at 10/28/2023 1359 Last data filed at 10/28/2023 1108 Gross per 24 hour Intake 1020 ml Output 650 ml Net 370 ml Exam- reviewed/unchanged General appearance: alert, cooperative, no distress Chest: diminished breath sounds Cardiovascular: irregular rhythm, normal S1 and S2 Abdomen: soft without mass, non-tender, with normal bowel sounds Extremities: trace LE edema, left thigh erythema/swelling, right arm erythema My review of labs, imaging, notes and other tests is significant for Recent Labs Component Name 10/28/23 0358 10/27/23 0737 10/26/23 0639 WBC 12.7* 14.5* 17.7* HGB 10.1* 10.2* 10.8* HCT 31.7* 32.2* 33.3* PLTCOUNT 199 196 195 Recent Labs Component Name 10/26/23 0359 10/25/23 0411 10/24/23 0517 SODIUM 144 146* 144 POTASSIUM 4.1 3.9 3.6 CHLORIDE 113* 115* 115* CO2 19* 23 21* BUN 17 19 22 CREATININE 1.08 1.27* 1.29* GLUCOSE 103 109* 101 CALCIUM 9.3 8.9 8.8 Magnesium Date Value Ref Range Status 10/27/2023 1.9 1.6 - 2.6 mg/dL Final Recent Labs Component Name 08/20/20 0000 07/24/17 0508 04/23/17 1103 TSH 1.27 2.518 1.64 Medications albuterol-ipratropium (Duo-Neb) nebulizer solution 3 mL, Inhalation, q6h apixaban (Eliquis) tablet 5 mg, Oral, BID aspirin chew tablet 81 mg, Oral, QDAY doxycycline monohydrate capsule 100 mg, Oral, QDAY insulin aspart (NovoLOG) pen 0-12 Units, Subcutaneous, 4X/day - AC & HS lactobacillus (Lactinex) granules 1 packet, Oral, TID lidocaine (Lidoderm) 5 % patch 1 patch, Transdermal, q24h metoprolol tartrate IR (Lopressor) tablet 25 mg, Oral, BID pantoprazole EC (Protonix) tablet 40 mg, Oral, QDAY rifAXIMin (Xifaxan) tablet 550 mg, Oral, BID venlafaxine (Effexor) tablet 37.5 mg, Oral, QDAY [COMPLETED] colchicine tablet 0.6 mg, Oral, q4h [COMPLETED] magnesium sulfate 1 g in 100 mL bolus, Intravenous, Once [COMPLETED] methylPREDNISolone sod succ (SOLU-Medrol) injection 40 mg, Intravenous, Once Readmission Risk Score: If there is no EVENTS ASSOCIATE Total Score indicated, this patient has yet to be assessed for Readmission Risk or the BNA Score was < 10. If the patient has been assessed, the score is: Assessment Septicemia Chronic Afib on Eliquis Run of NSVT Prior PE/DVT MICHAUD RADHA on CKD Dilated CM; EF 45% Plan Supplement Mag again today Continue Eliquis Antibiotics per ID Home Bumex and Aldactone on hold, watch for signs of volume overload. Appears compensated today Plan SNF on dc Patient follows with cardiology at [facility] Aneta Whittington MD 10/28/2023 * Rebecca Perez RN - 10/28/2023 10:18 AM CDT Care Coordination Progress Note Anticipated level of care at discharge: Care Home - Skilled Facility, Home Health Care Comment: see progress sect for all snf referrals made: Anticipated level of care provider: None: Anticipated Discharge Date: 10/31/23: Discharge Plan: SNF near [place], [place] No accepting facility at this time. Please see SW notes for further discharge details. Orientation Level: Oriented X4: Family Support (Name and Phone): Extended Emergency Contact Information Primary Emergency Contact: Trinity Keys Address: [address] [place] [address] [place] [address] [facility] Mobile Relation: Spouse City Manager needed? No Transportation at Discharge: Ambulance: READMISSION RISK SCORE is 16 at 10:19 AM 10/28/2023.: Name: Rebecca Perez RN [id number] * Mark Rios MD - 10/28/2023 10:13 AM CDT Images from the original note were not included. Infectious Diseases Progress Note José Miguel Kramer Ludmila 10/13/2023 Hospital Day 16 Subjective Awake but appears tired No fevers Abx Ceftriaxone 10/12- Clindamycin 10/11-10/17 Vanc 10/11-10/13 Flagyl 10/11-10/12 Cefepime 10/11 Exam BP 141/82 (BP Location: Left arm, Patient Position: Lying) Pulse 83 Temp 98.1 ??F (36.7 ??C) (Axillary) Resp 18 Ht 1.803 m (5' 10.98 ) Wt 111.1 kg (245 lb) SpO2 99% BMI 34.19 kg/m?? General: NAD, fatigued Neuro: alert, responds appropriately Lungs: non-labored on NC, diminished at bases CV: normal rate, regular Abd: abdominal distension improved Ext: Left thigh and leg less redness. Wrinkles present to thigh. Mild ttp. No induration. R IJ CVC 5/7-10/13 Data Recent Labs Component Name 10/28/23 0358 10/27/23 0737 10/26/23 0639 WBC 12.7* 14.5* 17.7* HGB 10.1* 10.2* 10.8* HCT 31.7* 32.2* 33.3* PLTCOUNT 199 196 195 Recent Labs Component Name 10/26/23 0359 10/25/23 0411 10/24/23 0517 SODIUM 144 146* 144 POTASSIUM 4.1 3.9 3.6 CHLORIDE 113* 115* 115* CO2 19* 23 21* BUN CREATININE 1.08 1.27* 1.29* GLUCOSE 103 109* 101 CALCIUM 9.3 8.9 8.8 Recent Labs Component Name 10/26/23 0359 10/25/23 0411 10/24/23 0517 10/20/23 0353 10/19/23 0336 10/18/23 0745 10/17/23 1421 10/17/23 0336 ALBUMIN 2.4* 2.5* 2.4* - 2.5* 2.5* - 2.5* ALKPHOS - - - - 80 81 - 73 ALT - - - - 38 45 - 53 AST - - - - 31 32 - 57* TBIL - - - - 0.8 1.1 - 0.5 TPROT - - - - 6.8 6.8 - 7.1 - = values in this interval not displayed. Microbiology Blood culture 10/10 Dandre Group G Strep (R clinda) 10/11 negative Radiology 10/10 CXR: Mild interstitial edema vs senescent change 10/10 Venous Doppler LLE: No DVT 10/10 CTA Chest: Distended gallbladder, cholelithiasis. No PE 10/10 CT A/P wo: stone in gallbladder neck. L1-2 fusion. Mild peripancreatic inflammatory changes 10/11 CT LLE wo: There is a moderate cellulitis in the skin and subcutaneous soft tissues along the medial aspect of the left thigh. No gas is seen in the soft tissues. No drainable abscess collection is seen. No evidence for inflammatory change in the fascial planes of the left thigh. 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 10/15 CT C/A/P wo: Moderate bilateral loculated pleural effusions. Slightly nodular [...] blood products given an adjacent soft tissue contusioninjury in the left lateral soft tissues and a mildly displaced left posterior 11th rib fracture. Nofree air identified. Subtle hazy stranding in the upper abdominal mesentery which could reflect posttraumatic changes/mesenteric injury or mesenteritis. This is in proximity of the pancreas however is felt less likely reflect pancreatitis. Recommend correlation with patient history and lipase. Diffuse bladder wall thickening which could be seen in the setting of cystitis. Recommend correlation with urinalysis. KUB 10/21 MEDICATIONS FOR CURRENT ENCOUNTER: SCHEDULED MEDICATIONS: albuterol-ipratropium (Duo-Neb) nebulizer solution 3 mL, Inhalation, q6h apixaban (Eliquis) tablet 5 mg, Oral, BID aspirin chew tablet 81 mg, Oral, QDAY doxycycline monohydrate capsule 100 mg, Oral, QDAY insulin aspart (NovoLOG) pen 0-12 Units, Subcutaneous, 4X/day - AC & HS lactobacillus (Lactinex) granules 1 packet, Oral, TID lidocaine (Lidoderm) 5 % patch 1 patch, Transdermal, q24h metoprolol tartrate IR (Lopressor) tablet 25 mg, Oral, BID pantoprazole EC (Protonix) tablet 40 mg, Oral, QDAY rifAXIMin (Xifaxan) tablet 550 mg, Oral, BID venlafaxine (Effexor) tablet 37.5 mg, Oral, QDAY [COMPLETED] colchicine tablet 0.6 mg, Oral, q4h [COMPLETED] magnesium sulfate 1 g in 100 mL bolus, Intravenous, Once [COMPLETED] methylPREDNISolone sod succ (SOLU-Medrol) injection 40 mg, Intravenous, Once CONTINUOUS MEDICATIONS: 0.9% NaCl flush bag, Intravenous, CONTINUOUS PRN PRN MEDICATIONS: Or Or 0.9% NaCl flush bag, Intravenous, CONTINUOUS PRN acetaminophen (Tylenol) tablet 650 mg, Oral, q6h PRN bisacodyl (Dulcolax) suppository 10 mg, Rectal, QDAY PRN dextrose 10 % IV bolus, Intravenous, PRN dextrose 10 % IV bolus, Intravenous, PRN glucagon (Glucagen) injection 1 mg, Subcutaneous, PRN glucose (Diabetic Use) oral gel, Oral, PRN HYDROcodone-acetaminophen ([place]) 5-325 MG tablet 1 tablet, Oral, q8h PRN ondansetron (Zofran) injection 4 mg, Intravenous, q4h PRN senna (Senokot) tablet 8.6 mg, Oral, BID PRN Assessment --Group G strep septicemia with septic shock, concern for left thigh nec fasc or cellulitis with myositis and Streptococcal toxic shock syndrome CK and CRP not majorly elevated, CK seems to have peaked Weaned off pressors IVIG 10/11-10/12 CT WITHOUT contrast without evidence for gas 10/11 and 10/14. Surgery evaluated and both times recommended no surgery CT C/A/P non-specific peripancreatic finding was also reported on outside initial CT and his lipasewas normal on admit. Liver enzymes not consistent with a hepatobiliary process. Pleural effusion likely from volume state I do not think there is an additional process for how sick he is. I think this was streptococcal toxic shock from left leg in a cirrhosis patient that developed RADHA. His leg does not currently look great but in several ways it looks better than the first 3 days of admission. He is going to have a very slow recovery. CRP about 60% better over the one week since admission. 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 [id number], on chronic suppressive doxycycline 100mg Afib, hx of DVT on eliquis BPH on flomax RADHA on CKD, improved MICHAUD and cirrhosis with small lower esophageal varices on 2022 EGD, portal hypertensive gastropathy Hx of PUD with bleeding COPD Obesity, BMI 34 Plan Continue chronic doxycycline 100mg daily ppx as per prior ID plan PT/OT Edema control Will need SNF on discharge Wean steroids when possible Edema control * Tiffany Fortune MD - 10/28/2023 9:07 AM CDT Admit Date: 10/12/2023 4:19 AM Hospital Day: 16 Follow Up Acute respiratory failure, AMS New Symptoms Patient awake and oriented to time and place. Denies CP, or dyspnea Data Vitals: 10/28/23 0342 10/28/23 0343 10/28/23 0759 10/28/23 0850 BP: 145/89 141/82 Pulse: 81 75 83 Resp: Temp: 97.4 ??F (36.3 ??C) 98.1 ??F (36.7 ??C) SpO2: 98% 98% 98% 99% Weight: Height: Temp (30hrs) Max:98.7 ??F (37.1 ??C) Intake/Output Summary (Last 24 hours) at 10/28/2023 0907 Last data filed at 10/28/2023 0642 Gross per 24 hour Intake 1440 ml Output 650 ml Net 790 ml Medications have been reviewed Exam General appearance: no distress HEENT: Grossly unremarkable Heart: regular rhythm, normal S1 and S2, Lungs: breath sounds clear Abdomen: soft , NT Extremities: + edema Neuro: No focal deficits. Recent Labs Component Name 10/28/23 0358 10/27/23 0737 10/26/23 0639 WBC 12.7* 14.5* 17.7* HGB 10.1* 10.2* 10.8* HCT 31.7* 32.2* 33.3* PLTCOUNT 199 196 195 Recent Labs Component Name 10/26/23 0359 10/25/23 0411 10/24/23 0517 03/08/23 1347 08/23/22 2024 02/09/22 0921 08/03/21 1025 01/09/21 1055 09/05/20 1325 02/03/19 0106 09/19/17 0243 09/18/17 0003 SODIUM 144 146* 144 - - - 139 137 140 - - - NA - - - - 141 - - - - - 138 140 POTASSIUM 4.1 3.9 3.6 - 4.6* - 4.7 4.4 4.2 - 4.9* 3.4* CHLORIDE 113* 115* 115* - - - 102 102 103 - - - CO2 19* 23 21* - 26 - 27 26 28 - 34* 35* BUN 17 19 22 - 26 - 41* 50* 27* - 26 25 CREATININE 1.08 1.27* 1.29* - 1.60* - 1.89* 2.07* 1.46* - 0.6 0.6 GLUCOSE 103 109* 101 - 113 - 124* 144* 109* - 153* 135* CALCIUM 9.3 8.9 8.8 - 10.3* - 9.6 9.7 9.9 - 9.1 9.0 EGFR 72* 59* 58* - 45* - 35* 31* 48* - >60 >60 EGFRAFR - - - - - - 40* 36* 55* - - - - = values in this interval not displayed. @ Recent Labs Component Name 10/17/23 2117 10/17/23 1434 10/17/23 0811 10/17/23 0420 10/12/23 0508 09/10/17 0557 09/09/17 0841 09/09/17 0422 FIO2 - 30.0 40.0 40.0 - 40.0 100.0 100.0 PH 7.39 7.45 7.32* 7.32* - 7.45 7.51* 7.41 PCO2 57* 48* 61* 61* - 44 38 45 BE 7.8* 8.2* 3.8* 3.9* - 5.4* 5.7* 2.4* HCO3 - - - - - 30.0* 29.2* 27.4* PO2 135* 86 146* 110* - 80 274* 65* O2SAT 100 99 99 99 - - - - [id number] 34.5* 33.4* 31.4* 31.4* - - - - - = values in this interval not displayed. Assessment/Plan: Acute hypercapnic respiratory failure: Patient is currently on BiPAP with an IPAP of 18 and EPAP of8 with 2L oxygen bled in at night . Patient has BiPAP at home with settings of IPAP of 18 and EPAP of 14 cm water pressure. Significant improvement with resolution of respiratory acidosis but has chronic hypercapnia. On 1L NC during the day. Wean oxygen down to room air-keep saturation more than 90percent Altered mental status: Resolved. Awake, responsive, able to answer questions. Presumed to be secondary to hypercapnic respiratory failure. CT Head without acute pathology. EEG ok. LFT ok, Ammonia ok,on Rifaximin empirically, off Lactulose Bilateral pleural effusion with attendant atelectasis: CXR 10/17/2023 shows significant improvement with small let pleural effusion. Repeat CXR shows bibasilar atelectasis. Hypernatremia presumably secondary to diuresis. Na at 146. Patient off IV fluids. Nephrology is following Group G Streptococcus bacteremia per blood cultures at outside facility: Patient has completed Ceftriaxone , on doxycycline. For chronic prophylaxis? Id is following patient Excessive narcotic use during this hospitalization: Patient required Narcan drip initially Anasarca during the hospitalization: Echocardiogram showed EF of 45 percent, BNP remains elevated but patient is clinically less fluid overloaded. Diuretics are being held secondary to hypernatremia History of atrial fibrillation: Patient is on beta-fe and Eliquis Code status: Full OK for D/C from Pulmonary standpoint. Awaiting SNF approval * Kim Santizo - 10/28/2023 8:53 AM CDT Problem: Impaired Gas Exchange Goal: Resp rate/effort will be within specified limits Description: To maintain oxygen within normal parameters. RT to monitor. Flowsheets (Taken 10/28/2023 0850) Resp: 18 SpO2: 99 % Note: MR Keys To maintain oxygenation within normal parameters. RT to monitor. * Radha Malone MSW - 10/28/2023 8:01 AM CDT New Facility Referral Follow-up Tuesday summary note Level of Care (SNF/Medicaid NH/Rehab/Usp Care/LTACH): Below referrals made per spouse request. Ss discussed with spouse Trinity Keys @ [phone] (rcd list near pts hme from ss f/u with logistics team lead). . Pt will be unable to transfer until Auth rcd and fac. with approval with an available bed, and pt medically stable for transfer. Ss updated spouse pt was denied @ [facility]. Spouse has ss contact # and planned to look up reviews for other options and advise if with any changes in choices. SS spke with Nicolas with [facility] admissions yesterday,she planned to advise her bldg to advise ss if able to accommodate. Nicolas asked for ss contact # / provided. Ss awaiting rtn call. Referrals initiated: Continued Care and Services - Admitted Since 10/12/2023 Destination Service Provider Request Status Selected Services Address Phone Fax Patient Preferred [facility] Pending - [facility] Sent N[facility]A [address] [facility] [facility] [address] [phone] -- [place] [facility] ([facility] and [facility])Pending - Request Sent N/A [id number] [facility] [id number] -- Current Capacity last updated by Chantel Lepe on 04/28/2022 1237 [address] [facility] Pending - Request Sent N/A [address] [facility] [id number] -- [facility] Declined Facility cannot provide for patient's needs, per admissions unable to accommodate. N/A [address] [address] -- If Medicare-3 day qualifying stay verified: Yes pt .has Aetna ,and will need an [facility] cm / team to obtain snf Auth once fac with approval with an available bed. monitoring facility responses Comments/changes:@ discharge nrsg to please send fac orders,chart and discharge summary. This worker will be off 10/31/23Tuesday, the dept will be closed in observance of the holiday, therewill be supervisor stone available if needs arise. This worker plans rtn on 11/01/23Tuesday. Name: CHRIS Garcia Phone: [phone] * Angela Mederos RN - 10/27/2023 10:36 PM CDT Problem: Fall Risk Goal: Fall risk and fall related injury risk are minimized (interventions related to the fall risk can be found in the flowsheet documentation) Outcome: Progressing Problem: Pain/Discomfort Goal: Patient exhibits reduced pain/discomfort as evidenced by pain scores Outcome: Progressing Goal: Patient uses pharmacological and non-pharmacological pain management strategies. Outcome: Progressing Goal: Patient verbalizes acceptable level of pain relief and ability to engage in desired activity. Outcome: Progressing Problem: Ineffective breathing pattern related to obstructive sleep apnea Goal: Maintains optimal sleep pattern, as evidenced by relaxed breathing at normal rate and depth. Outcome: Progressing Goal: Adheres to CPAP (Continuous Positive Airway Pressure) device regimen as prescribed. Outcome: Progressing Problem: Sleep deprivation related to sleep apnea. Goal: Achieves restful, refreshing sleep pattern. Outcome: Progressing Problem: Mobility Goal: LTG - Patient will ambulate household distance Description: Ind with AAD and supervision Outcome: Progressing Goal: STG - Patient will tolerate ____ repetitions of exercises. Description: 10-20 repetitions of LE exercises for strength and endurance. Outcome: Progressing Problem: Transfers Goal: LTG - Patient will transfer from one surface to another Description: Ind with AAD Outcome: Progressing Goal: STG - Patient will perform bed mobility Description: Min assist Outcome: Progressing Problem: General Goal: STG-Patient will Description: Tolerate sitting EOB for 10 minutes with good sitting balance in preparation for seated ADLs. Outcome: Progressing Goal: STG-Patient will Description: Complete oral/facial hygiene with set up assist Outcome: Progressing Goal: STG-Patient will Description: Perform UB dressing tasks with set up assist Outcome: Progressing Problem: Potential for Urinary Catheter-Associated Infection Goal: Signs and Symptoms of urinary catheter-associated infection are avoided Outcome: Progressing Goal: Normal urinary patterns are established within parameters of age and disease process Outcome: Progressing Problem: Skin Integrity Goal: Skin integrity is maintained or improved Outcome: Progressing Problem: Ineffective Airway Clearance Goal: Patent airway Outcome: Progressing * Bell Ordonez - 10/27/2023 2:02 PM CDT I will monitor Mr. Keys respiratory status today and wean as tolerated. I will encourage pulmonarytoilet. * Dipak Padilla MD - 10/27/2023 1:51 PM CDT Internal Medicine Progress Note -Hospitalist Admit Date: 10/12/2023 4:19 AM Hospital Day: 15 Clinical Course: 72 independent living, history of AFib, CHF, VALENTINA on BiPAP at nighttime, COPD, CKD was admitted for sepsis and lower extremity cellulitis Started on IV antibiotics Course complicated by significant confusion requiring Neurology consultation. Also noted severe hypernatremia. NG was placed. 10/19 mentally better 10/20 NG was pulled out, passed swallow eval, oriented 10/21 feels better overall improving, can move out of IMCU 10/22 improved, now on room air 10/23 stable New Symptoms: Doing okay, but complains about right elbow pain - somewhat better. No new issues. US RUE with superficial clot - no DVT Objective: Vitals: 10/27/23 0435 10/27/23 0442 10/27/23 0753 10/27/23 1134 BP: 148/70 148/82 134/73 Pulse: 75 75 84 Resp: 16 16 16 Temp: 97.3 ??F (36.3 ??C) 97.5 ??F (36.4 ??C) 98.4 ??F (36.9 ??C) SpO2: (!) 87% 97% 100% 96% Weight: Height: General appearance: Awake responsive, able to communicate and ask the right questions Left pupil is bigger than right Heart: normal rate Lungs: breath sounds normal and symmetric; no rales or wheezes Abdomen: soft without mass, non-tender, with normal bowel sounds Extremities: no clubbing, cyanosis or edema, chronic venous insufficiency changes on bilateral calves. 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 Intake/Output Summary (Last 24 hours) at 10/27/2023 1351 Last data filed at 10/27/2023 0911 Gross per 24 hour Intake -- Output 550 ml Net -550 ml Current Medications: MEDICATIONS FOR CURRENT ENCOUNTER: SCHEDULED MEDICATIONS: albuterol-ipratropium (Duo-Neb) nebulizer solution 3 mL, Inhalation, q6h apixaban (Eliquis) tablet 5 mg, Oral, BID aspirin chew tablet 81 mg, Oral, QDAY colchicine tablet 0.6 mg, Oral, q4h doxycycline monohydrate capsule 100 mg, Oral, QDAY insulin aspart (NovoLOG) pen 0-12 Units, Subcutaneous, 4X/day - AC & HS lactobacillus (Lactinex) granules 1 packet, Oral, TID lidocaine (Lidoderm) 5 % patch 1 patch, Transdermal, q24h magnesium sulfate 1 g in 100 mL bolus, Intravenous, Once methylPREDNISolone sod succ (SOLU-Medrol) injection 40 mg, Intravenous, Once metoprolol tartrate IR (Lopressor) tablet 25 mg, Oral, BID pantoprazole EC (Protonix) tablet 40 mg, Oral, QDAY rifAXIMin (Xifaxan) tablet 550 mg, Oral, BID venlafaxine (Effexor) tablet 37.5 mg, Oral, QDAY CONTINUOUS MEDICATIONS: 0.9% NaCl flush bag, Intravenous, CONTINUOUS PRN PRN MEDICATIONS: Or Or 0.9% NaCl flush bag, Intravenous, CONTINUOUS PRN acetaminophen (Tylenol) tablet 650 mg, Oral, q6h PRN bisacodyl (Dulcolax) suppository 10 mg, Rectal, QDAY PRN dextrose 10 % IV bolus, Intravenous, PRN dextrose 10 % IV bolus, Intravenous, PRN glucagon (Glucagen) injection 1 mg, Subcutaneous, PRN glucose (Diabetic Use) oral gel, Oral, PRN HYDROcodone-acetaminophen ([place]) 5-325 MG tablet 1 tablet, Oral, q8h PRN ondansetron (Zofran) injection 4 mg, Intravenous, q4h PRN senna (Senokot) tablet 8.6 mg, Oral, BID PRN Data: Recent Labs Component Name 10/26/23 0359 10/25/23 0411 10/24/23 0517 SODIUM 144 146* 144 POTASSIUM 4.1 3.9 3.6 BUN 17 22 CREATININE 1.08 1.27* 1.29* GLUCOSE 103 109* 101 Recent Labs Component Name 10/27/23 0737 10/26/23 0639 10/25/23 0411 WBC 14.5* 17.7* 14.5* HGB 10.2* 10.8* 11.7* HCT 32.2* 33.3* 38.2* PLTCOUNT 196 195 175 Assessment and Plan Optimize electrolyte Physical therapy Adding sent He will need rehabilitation reported a run of V-tach, 1. Altered mental status Completely resolved 2. Septic shock presented on admission IV fluids, IV antibiotics resolved 3. Left thigh cellulitis looks to be improving almost erythema has gone Continue with IV antibiotic CT scan showed no soft tissue gas and no abscess Surgery and Infectious Disease managing On oral antibiotics at this point 4. Group G strep bacteremia Secondary to above Continued on ceftriaxone until 10/23 - now on oral doxycycline - Noted chronic suppressive antibiotics at home. 5. Lactic acidosis resolved 6. Hypernatremia - improved previously - mild increase today - monitor 7. Difficulty swallowing Likely secondary to altered mental status. - NG removed 10/20 started on diet 8. Acute on chronic kidney disease likely ATN in the settings of shock also received contrast Improving - remove acbral 10/25 - spontaneously voiding - monitor closely 9. Acute on chronic hypoxemic respiratory failure looks to be much better Extubated October 11 Currently on nasal cannula 10. History of COPD no wheezing 11. History of CHF monitor fluid status 12. History of atrial fibrillation on Eliquis and metoprolol 13. Michaud cirrhosis continue rifaximin will stop lactulose 14. Hypokalemia repleted 15. 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 Right elbow pain - No Dislocation - x-ray assessment without abnormality - Superficial clot - ? Gout - solumedrol 40 mg x 1 - colchicine 0.6 mg Q 4 hours x 2 doses Patient's Functional Baseline prior to admit: independent Discharge Planning to Next Site of Care: Most likely to need some kind of rehabilitation Anticipated discharge date: 10/23 READMISSION RISK SCORE is 16 at 1:51 PM 10/27/2023. DVT prophylaxis: Eliquis Full Code Dipak Padilla MD 10/27/2023 1:51 PM Portions of this note may be dictated using voice recognition software. Variances in spelling and vocabulary are possible and unintentional. Not all errors are caught/corrected. Please notify the author if any discrepancies are noted or if the meaning of any statement is not clear. These grammatical oversights have no impact on the medical care provided to the patient. Time in which this note is created does not match the time of rounding/clinical exam. * Sissy Ferrell RN - 10/27/2023 12:26 PM CDT Shift Summary: A&Ox2-3. Frequent loose brown/ poe BM's. Held Dr Valerie Young aware. Lactobacillus started. Tolerating Po well with assist. Right elbow wrist pain. Colchicine started. Pt educated on new meds. While in bed, THOMAS noted. Safety and comfort rounds completed. Bed locked and in low position, side rails up x 2, call light within reach. Will continue to monitor. Problem: Impaired Gas Exchange Goal: Resp rate/effort will be within specified limits Description: To maintain oxygen within normal parameters. RT to monitor. Flowsheets (Taken 10/27/2023 1134 by Andra Burroughs) Resp: 16 SpO2: 96 % 1L/nc Note: José Miguel on 1L/NC Problem: Oral Intake: Inadequate oral intake Goal: Total intake will meet estimated nutrient needs Note: José Miguel assisted with meal intake this shift Problem: Fall Risk Goal: Fall risk and fall related injury risk are minimized (interventions related to the fall risk can be found in the flowsheet documentation) Note: Hourly rounding completed with José Miguel this shift Problem: Mobility Goal: LTG - Patient will ambulate household distance Description: Ind with AAD and supervision Note: José Miguel Completed x2 heavy assist this shift. Problem: Skin Integrity Goal: Skin integrity is maintained or improved Note: José Miguel's skin integrity maintained on LLAM this shift * Ada Angulo, CENTRAL OFFICE SUPERVISOR-[employer] - 10/27/2023 10:12 AM CDT Cardiology Progress Note Admit Date: 10/12/2023 4:19 AM Hospital Day: 15 Chief complaint: SOB, cough, vomiting, fatigue, left thigh pain Symptoms Complains of right arm pain. No CP or SOB. Tele- Aflutter with PVCs Data Vitals: 10/27/23 0256 10/27/23 0435 10/27/23 0442 10/27/23 0753 BP: 148/70 148/82 Pulse: 89 75 75 Resp: 16 16 Temp: 97.3 ??F (36.3 ??C) 97.5 ??F (36.4 ??C) SpO2: 99% (!) 87% 97% 100% Weight: Height: Intake/Output Summary (Last 24 hours) at 10/27/2023 1012 Last data filed at 10/27/2023 0911 Gross per 24 hour Intake -- Output 750 ml Net -750 ml Exam- reviewed/changed General appearance: alert, cooperative, no distress Chest: diminished breath sounds Cardiovascular: irregular rhythm, normal S1 and S2 Abdomen: soft without mass, non-tender, with normal bowel sounds Extremities: trace LE edema, left thigh erythema/swelling, right arm erythema My review of labs, imaging, notes and other tests is significant for Recent Labs Component Name 10/27/23 0737 10/26/23 0639 10/25/23 0411 WBC 14.5* 17.7* 14.5* HGB 10.2* 10.8* 11.7* HCT 32.2* 33.3* 38.2* PLTCOUNT 196 195 175 Recent Labs Component Name 10/26/23 0359 10/25/23 0411 10/24/23 0517 SODIUM 144 146* 144 POTASSIUM 4.1 3.9 3.6 CHLORIDE 113* 115* 115* CO2 19* 23 21* BUN 17 19 22 CREATININE 1.08 1.27* 1.29* GLUCOSE 103 109* 101 CALCIUM 9.3 8.9 8.8 Magnesium Date Value Ref Range Status 10/27/2023 1.9 1.6 - 2.6 mg/dL Final Recent Labs Component Name 08/20/20 0000 07/24/17 0508 04/23/17 1103 TSH 1.27 2.518 1.64 Medications albuterol-ipratropium (Duo-Neb) nebulizer solution 3 mL, Inhalation, q6h apixaban (Eliquis) tablet 5 mg, Oral, BID aspirin chew tablet 81 mg, Oral, QDAY docusate sodium (Colace) capsule 100 mg, Oral, BID doxycycline monohydrate capsule 100 mg, Oral, QDAY insulin aspart (NovoLOG) pen 0-12 Units, Subcutaneous, 4X/day - AC & HS lidocaine (Lidoderm) 5 % patch 1 patch, Transdermal, q24h metoprolol tartrate IR (Lopressor) tablet 25 mg, Oral, BID pantoprazole EC (Protonix) tablet 40 mg, Oral, QDAY rifAXIMin (Xifaxan) tablet 550 mg, Oral, BID senna-docusate (Senokot-S) tablet 1 tablet, Oral, QDAY venlafaxine (Effexor) tablet 37.5 mg, Oral, QDAY [COMPLETED] magnesium sulfate 2 g in 50 mL bolus, Intravenous, Once Readmission Risk Score: If there is no EVENTS ASSOCIATE Total Score indicated, this patient has yet to be assessed for Readmission Risk or the BNA Score was < 10. If the patient has been assessed, the score is: Assessment Septicemia Chronic Afib on Eliquis Run of NSVT Prior PE/DVT MICHAUD RADHA on CKD Dilated CM; EF 45% Plan Supplement Mag again today Continue Eliquis Antibiotics per ID Lasix on hold, watch for signs of volume overload Plan SNF on dc Ada Angulo APRN-[employer] 10/27/2023 * Tiffany Fortune MD - 10/27/2023 9:02 AM CDT Admit Date: 10/12/2023 4:19 AM Hospital Day: 15 Follow Up Acute respiratory failure, AMS New Symptoms Patient awake and oriented to time and place. Denies CP, or dyspnea Data Vitals: 10/27/23 0256 10/27/23 0435 10/27/23 0442 10/27/23 0753 BP: 148/70 148/82 Pulse: 89 75 75 Resp: 16 16 Temp: 97.3 ??F (36.3 ??C) 97.5 ??F (36.4 ??C) SpO2: 99% (!) 87% 97% 100% Weight: Height: Temp (30hrs) Max:98.6 ??F (37 ??C) Intake/Output Summary (Last 24 hours) at 10/27/2023 0902 Last data filed at 10/26/2023 2108 Gross per 24 hour Intake -- Output 650 ml Net -650 ml Medications have been reviewed Exam General appearance: no distress HEENT: Grossly unremarkable Heart: regular rhythm, normal S1 and S2, Lungs: breath sounds clear Abdomen: soft , NT Extremities: + edema Neuro: No focal deficits. Recent Labs Component Name 10/27/23 0737 10/26/23 0639 10/25/23 0411 WBC 14.5* 17.7* 14.5* HGB 10.2* 10.8* 11.7* HCT 32.2* 33.3* 38.2* PLTCOUNT 196 195 175 Recent Labs Component Name 10/26/23 0359 10/25/23 0411 10/24/23 0517 03/08/23 1347 08/23/22 2024 02/09/22 0921 08/03/21 1025 01/09/21 1055 09/05/20 1325 02/03/19 0106 09/19/17 0243 09/18/17 0003 SODIUM 144 146* 144 - - - 139 137 140 - - - NA - - - - 141 - - - - - 138 140 POTASSIUM 4.1 3.9 3.6 - 4.6* - 4.7 4.4 4.2 - 4.9* 3.4* CHLORIDE 113* 115* 115* - - - 102 102 103 - - - CO2 19* 23 21* - 26 - 27 26 28 - 34* 35* BUN 17 19 22 - 26 - 41* 50* 27* - 26 25 CREATININE 1.08 1.27* 1.29* - 1.60* - 1.89* 2.07* 1.46* - 0.6 0.6 GLUCOSE 103 109* 101 - 113 - 124* 144* 109* - 153* 135* CALCIUM 9.3 8.9 8.8 - 10.3* - 9.6 9.7 9.9 - 9.1 9.0 EGFR 72* 59* 58* - 45* - 35* 31* 48* - >60 >60 EGFRAFR - - - - - - 40* 36* 55* - - - - = values in this interval not displayed. @ Recent Labs Component Name 10/17/23 2117 10/17/23 1434 10/17/23 0811 10/17/23 0420 10/12/23 0508 09/10/17 0557 09/09/17 0841 09/09/17 0422 FIO2 - 30.0 40.0 40.0 - 40.0 100.0 100.0 PH 7.39 7.45 7.32* 7.32* - 7.45 7.51* 7.41 PCO2 57* 48* 61* 61* - 44 38 45 BE 7.8* 8.2* 3.8* 3.9* - 5.4* 5.7* 2.4* HCO3 - - - - - 30.0* 29.2* 27.4* PO2 135* 86 146* 110* - 80 274* 65* O2SAT 100 99 99 99 - - - - OFF2NPS 34.5* 33.4* 31.4* 31.4* - - - - - = values in this interval not displayed. Assessment/Plan: Acute hypercapnic respiratory failure: Patient is currently on BiPAP with an IPAP of 18 and EPAP of8 with 2L oxygen bled in at night (did not use BiPAP last night). Patient has BiPAP at home with settings of IPAP of 18 and EPAP of 14 cm water pressure. Significant improvement with resolution of respiratory acidosis but has chronic hypercapnia. On 1L NC during the day. Wean oxygen down to room air-keep saturation more than 90 percent Altered mental status: Resolved. Awake, responsive, able to answer questions. Presumed to be secondary to hypercapnic respiratory failure. CT Head without acute pathology. EEG ok. LFT ok, Ammonia ok,on Rifaximin empirically, off Lactulose Bilateral pleural effusion with attendant atelectasis: CXR 10/17/2023 shows significant improvement with small let pleural effusion. Repeat CXR shows bibasilar atelectasis. Hypernatremia presumably secondary to diuresis. Na at 146. Patient off IV fluids. Nephrology is following Group G Streptococcus bacteremia per blood cultures at outside facility: Patient has completed Ceftriaxone , still on doxycycline. Id is following patient Excessive narcotic use during this hospitalization: Patient is now off Narcan drip Anasarca during the hospitalization: Echocardiogram showed EF of 45 percent, BNP remains elevated but patient is clinically less fluid overloaded. Diuretics are being held secondary to hypernatremia History of atrial fibrillation: Patient is on beta-fe and Eliquis Code status: Full OK for D/C from Pulmonary standpoint * Lucía Castaneda DO - 10/27/2023 8:21 AM CDT Images from the original note were not included. Infectious Diseases Progress Note José Miguel Keys 10/13/2023 Hospital Day 15 Subjective Awake but appears tired Left thigh pain and erythema improved afebrile Abx Ceftriaxone 10/12- Clindamycin 10/11-10/17 Vanc 10/11-10/13 Flagyl 10/11-10/12 Cefepime 10/11 Exam BP 148/82 (BP Location: Right arm, Patient Position: Lying) Pulse 75 Temp 97.5 ??F (36.4 ??C) (Oral) Resp 16 Ht 1.803 m (5' 10.98 ) Wt 111.1 kg (245 lb) SpO2 100% BMI 34.19 kg/m?? General: NAD, fatigued Neuro: alert, responds appropriately Lungs: non-labored on NC, diminished at bases CV: normal rate, regular Abd: abdominal distension improved Ext: Left thigh and leg less redness. Wrinkles present to thigh. Mild ttp. No induration. R IJ CVC 10/10-10/13 Data Recent Labs Component Name 10/27/23 0737 10/26/23 0639 10/25/23 0411 WBC 14.5* 17.7* 14.5* HGB 10.2* 10.8* 11.7* HCT 32.2* 33.3* 38.2* PLTCOUNT 196 195 175 Recent Labs Component Name 10/26/23 0359 10/25/23 0411 10/24/23 0517 SODIUM 144 146* 144 POTASSIUM 4.1 3.9 3.6 CHLORIDE 113* 115* 115* CO2 19* 23 21* BUN CREATININE 1.08 1.27* 1.29* GLUCOSE 103 109* 101 CALCIUM 9.3 8.9 8.8 Recent Labs Component Name 10/26/23 0359 10/25/23 0411 10/24/23 0517 10/20/23 0353 10/19/23 0336 10/18/23 0745 10/17/23 1421 10/17/23 0336 ALBUMIN 2.4* 2.5* 2.4* - 2.5* 2.5* - 2.5* ALKPHOS - - - - 80 81 - 73 ALT - - - - 38 45 - 53 AST - - - - 31 32 - 57* TBIL - - - - 0.8 1.1 - 0.5 TPROT - - - - 6.8 6.8 - 7.1 - = values in this interval not displayed. Microbiology Blood culture 10/10 Dandre Group G Strep (R clinda) 10/11 negative Radiology 10/10 CXR: Mild interstitial edema vs senescent change 10/10 Venous Doppler LLE: No DVT 10/10 CTA Chest: Distended gallbladder, cholelithiasis. No PE 10/10 CT A/P wo: stone in gallbladder neck. L1-2 fusion. Mild peripancreatic inflammatory changes 10/11 CT LLE wo: There is a moderate cellulitis in the skin and subcutaneous soft tissues along the medial aspect of the left thigh. No gas is seen in the soft tissues. No drainable abscess collection is seen. No evidence for inflammatory change in the fascial planes of the left thigh. 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 10/15 CT C/A/P wo: Moderate bilateral loculated pleural effusions. Slightly nodular [...] blood products given an adjacent soft tissue contusioninjury in the left lateral soft tissues and a mildly displaced left posterior 11th rib fracture. Nofree air identified. Subtle hazy stranding in the upper abdominal mesentery which could reflect posttraumatic changes/mesenteric injury or mesenteritis. This is in proximity of the pancreas however is felt less likely reflect pancreatitis. Recommend correlation with patient history and lipase. Diffuse bladder wall thickening which could be seen in the setting of cystitis. Recommend correlation with urinalysis. KUB 10/21 MEDICATIONS FOR CURRENT ENCOUNTER: SCHEDULED MEDICATIONS: albuterol-ipratropium (Duo-Neb) nebulizer solution 3 mL, Inhalation, q6h apixaban (Eliquis) tablet 5 mg, Oral, BID aspirin chew tablet 81 mg, Oral, QDAY docusate sodium (Colace) capsule 100 mg, Oral, BID doxycycline monohydrate capsule 100 mg, Oral, QDAY insulin aspart (NovoLOG) pen 0-12 Units, Subcutaneous, 4X/day - AC & HS lidocaine (Lidoderm) 5 % patch 1 patch, Transdermal, q24h metoprolol tartrate IR (Lopressor) tablet 25 mg, Oral, BID pantoprazole EC (Protonix) tablet 40 mg, Oral, QDAY rifAXIMin (Xifaxan) tablet 550 mg, Oral, BID senna-docusate (Senokot-S) tablet 1 tablet, Oral, QDAY venlafaxine (Effexor) tablet 37.5 mg, Oral, QDAY [COMPLETED] magnesium sulfate 2 g in 50 mL bolus, Intravenous, Once CONTINUOUS MEDICATIONS: 0.9% NaCl flush bag, Intravenous, CONTINUOUS PRN PRN MEDICATIONS: Or Or 0.9% NaCl flush bag, Intravenous, CONTINUOUS PRN acetaminophen (Tylenol) tablet 650 mg, Oral, q6h PRN bisacodyl (Dulcolax) suppository 10 mg, Rectal, QDAY PRN dextrose 10 % IV bolus, Intravenous, PRN dextrose 10 % IV bolus, Intravenous, PRN glucagon (Glucagen) injection 1 mg, Subcutaneous, PRN glucose (Diabetic Use) oral gel, Oral, PRN HYDROcodone-acetaminophen ([place]) 5-325 MG tablet 1 tablet, Oral, q8h PRN ondansetron (Zofran) injection 4 mg, Intravenous, q4h PRN senna (Senokot) tablet 8.6 mg, Oral, BID PRN Assessment --Group G strep septicemia with septic shock, concern for left thigh nec fasc or cellulitis with myositis and Streptococcal toxic shock syndrome CK and CRP not majorly elevated, CK seems to have peaked Weaned off pressors IVIG 10/11-10/12 CT WITHOUT contrast without evidence for gas 10/11 and 10/14. Surgery evaluated and both times recommended no surgery CT C/A/P non-specific peripancreatic finding was also reported on outside initial CT and his lipasewas normal on admit. Liver enzymes not consistent with a hepatobiliary process. Pleural effusion likely from volume state I do not think there is an additional process for how sick he is. I think this was streptococcal toxic shock from left leg in a cirrhosis patient that developed RADHA. His leg does not currently look great but in several ways it looks better than the first 3 days of admission. He is going to have a very slow recovery. CRP about 60% better over the one week since admission. 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 [id number], on chronic suppressive doxycycline 100mg Afib, hx of DVT on eliquis BPH on flomax RADHA on CKD, improved MICHAUD and cirrhosis with small lower esophageal varices on 2022 EGD, portal hypertensive gastropathy Hx of PUD with bleeding COPD Obesity, BMI 34 Plan Continue chronic doxycycline 100mg daily ppx as per prior ID plan PT/OT Will need SNF on discharge * Ruma Mcclain RN - 10/27/2023 2:30 AM CDT Problem: Impaired Gas Exchange Goal: Resp rate/effort will be within specified limits Description: To maintain oxygen within normal parameters. RT to monitor. Outcome: Progressing Problem: Oral Intake: Inadequate oral intake Goal: Total intake will meet estimated nutrient needs Outcome: Progressing Problem: Fall Risk Goal: Fall risk and fall related injury risk are minimized (interventions related to the fall risk can be found in the flowsheet documentation) Outcome: Progressing Problem: Pain/Discomfort Goal: Patient exhibits reduced pain/discomfort as evidenced by pain scores Outcome: Progressing Goal: Patient uses pharmacological and non-pharmacological pain management strategies. Outcome: Progressing * Aviva Vega RCP - 10/26/2023 8:37 PM CDT Patient resting. Will continue to follow per orders * Eula Song RD/SALVADOR - 10/26/2023 4:10 PM CDT Brief Synopsis: Patient is at nutrition risk but does not meet malnutrition criteria. Energy Intake: < 75% of estimated energy requirement for > 7 days Nutrition Plan: Current diet order: Easy to Chew/Mechanical Soft Current supplement order: None Recommendations to Physician: Diet per Speech therapy Discharge Needs: Pending hospital course Nutrition Reassessment Changes in condition/Patient Summary: Following the patient for poor intakes Changes in patient include, patient stable on room air. Has been moved to general medical floor. Appetite has not changed. Patient not liking the food because he follows a low sodium diet at home with the products they eat either fresh foods or no salt added products when able. Changed patient to low sodium so that LS sodium products used. Patient would benefit with low sodium menu. Patient at nutritional risk will continue to follow per guidelines Assessment Med/Surg History and Clinical Diagnoses: Fluid and electrolyte disorder: hyperkalemia requiring further monitoring Thrombocytopenia Thrombocytopenia requiring further monitoring Hypoalbuminemia requiring further monitoring Chronic kidney disease: Chronic Kidney Disease, Unspecified Cardiac arrhythmia: Atrial fibrillation, unspecified Congestive Heart Failure Shock: Severe sepsis with shock Obesity Patient receiving mechanical ventilation Weight Review Height: 180.3 cm (5' 10.98 ) Last Weight: 111.1 kg (245 lb) (10/14/23 0643) Last Weight Method : Bed scale (10/14/23 0643) [place] Body Weight IBW/lb (Calculated) Male: 171.904 BMI: Body mass index is 34.19 kg/m??. BMI Range: Obese Class 1 Weight Assessment: No new weight Wt Readings from Last 10 Encounters: 10/14/23 111.1 kg (245 lb) 05/12/23 111.1 kg (245 lb) 03/21/23 110.7 kg (244 lb) 10/07/22 120.7 kg (266 lb) 08/23/22 120.7 kg (266 lb) 08/23/22 120.7 kg (266 lb) 02/23/22 120.2 kg (265 lb) 08/17/21 121.1 kg (267 lb) 12/30/20 114.8 kg (253 lb) 08/26/20 114.9 kg (253 lb 6.4 oz) PO INTAKE Current diet order: Easy to Chew/Mechanical Soft Food Allergies: Other (Comments) (all Peppers) Last % Meal Taken: 50 % (10/26/23 0807) Current supplement order: None Supplement(s) Consumed- Last 48 hours None PO Intake Assessment: intakes poor eating 25-50% of meals GI Concerns: None (Last BM 10/25) Chewing/Swallowing: Dysphagia (Diet per speech therapy) Skin/Wound: + edema Last Skin Condition: Dry;Bruising;Swollen (10/26/23 0509) Pain affecting intake: No Estimated Needs: KCAL: [id number] based on 20 kcals/kg abw -500 Protein (g): 94 based on 1.2 g/kg ibw Fluid (ml): 1 ml/kcal Needs based on: Kcal/kg- (Comment) Recommended Access Route: PO Labs: Recent Labs Component Name 10/26/23 0359 10/19/23 1639 10/19/23 0336 SODIUM 144 - 156* POTASSIUM 4.1 - 3.3* CHLORIDE 113* - 120* CO2 19* - 27 BUN 17 - 63* CREATININE 1.08 - 1.83* GLUCOSE 103 - 120* CALCIUM 9.3 - 9.3 ALBUMIN 2.4* - 2.5* ALKPHOS - - 80 ALT - - 38 AST - - 31 TBIL - - 0.8 TPROT - - 6.8 EGFR 72* - 38* - = values in this interval not displayed. Recent Labs Component Name 10/26/23 0359 10/25/23 0411 10/24/23 0517 PHOS 2.6 2.5 2.4 Recent Labs Component Name 10/13/23 0346 02/03/19 0106 07/14/17 2212 HGBA1C 6.5* 5.8 6.3 Patient Vitals for the past 30 hrs: Glucose Bedside (mg/dL) 10/26/23 1224 160 mg/dL 10/25/23 2012 146 mg/dL PERTINENT MEDICATIONS FOR CURRENT ENCOUNTER: SCHEDULED MEDICATIONS: docusate sodium (Colace) capsule 100 mg, Oral, BID doxycycline monohydrate capsule 100 mg, Oral, QDAY insulin aspart (NovoLOG) pen 0-12 Units, Subcutaneous, 4X/day - AC & HS lidocaine (Lidoderm) 5 % patch 1 patch, Transdermal, q24h metoprolol tartrate IR (Lopressor) tablet 25 mg, Oral, BID pantoprazole EC (Protonix) tablet 40 mg, Oral, QDAY rifAXIMin (Xifaxan) tablet 550 mg, Oral, BID senna-docusate (Senokot-S) tablet 1 tablet, Oral, QDAY venlafaxine (Effexor) tablet 37.5 mg, Oral, QDAY [COMPLETED] magnesium sulfate 2 g in 50 mL bolus, Intravenous, Once CONTINUOUS MEDICATIONS: 0.9% NaCl flush bag, Intravenous, CONTINUOUS PRN ~~~~~~~~~~~~~~~~~~~~~~~~~~~~~~~~ Nutrition Diagnostic Statement: Inadequate oral intake related to:: decreased ability to consume ortolerate food and/or fluids due to illness as evidenced by:: oral intake insufficient to meet estimated requirements Nutrition Intervention: Meals and snacks:;Medical Food Supplements:;Collaboration with other providers Education Provided: Not appropriate (10/12/23 1100) Recommendation/Plan: Nutrition recommendation: alter/change nutrition order Changed diet o low sodium, provide menu when available Monitoring: Intakes, weight, labs, care plan Evaluation: Nutrition Goal: Intake will be improved to 75% or greater of meals/snacks Nutrition Goal Timeframe: Throughout stay * Eula Song RD/LD - 10/26/2023 4:09 PM CDT Problem: Oral Intake: Inadequate oral intake Goal: Total intake will meet estimated nutrient needs Outcome: Progressing Diet advanced to easy chew Eating poorly 25-50%. Not liking the food and stated that it is too salty. * Alfonso Retana, OT - 10/26/2023 4:06 PM CDT Occupational Therapy Treatment Summary Chart reviewed for diagnosis and medical systems review. Nursing consented for OT. Explained purpose of OT and patient consented to participate in therapy. RECOMMENDATIONS/PLAN: Discharge Equipment Recommendations: To Be Determined OT Discharge Recommendations: Patient would benefit from multidisciplinary therapy This recommendation is made due to ongoing OT functional needs: address care for self in the home;address functional deficits;patient to return to prior level of care;patient is motivated and actively participating in therapy;patient has ability to improve with skilled therapy intervention Recommended Transportation Method: Stretcher/Ambulance PPE worn by staff: gloves PPE worn by patient: gown - patient, clean;socks - clean AM-PAC Daily Activity score for this patient is Daily Activity Raw Score:: 13 Precautions: Fall risk, O2 @ 1lt pnc SUBJECTIVE: Consents to therapy Psychosocial: Patient Behaviors: Calm;Cooperative Pt's goal for therapy: To return to PLOF OBJECTIVE: Cognition: Orientation Level: Oriented X4 Level of Consciousness-Adult: Alert Cognition: Follows Commands-Consistent Perception: Initiation: Appears intact Motor Planning: Appears intact ADL Tasks: Feeding: Stand By Assist Oral Facial Hygiene: Moderate Assistance Bathing: Maximal Assistance Upper Body Dressing: Moderate Assistance Lower Body Dressing: Maximal Assistance Toileting: Maximal Assistance RUE Assessment: AROM - Right Upper Extremity: (NA c/o elbw pain X-ray pending) LUE Assessment: AROM - Left Upper Extremity: Within Functional Limits Strength - Left Upper Extremity: Within Functional Limits Oxygen Therapy: O2 L/M: 1 $ O2 DEVICE: Nasal Cannula $ ASSESSMENT: Pt completed grooming tasks with Mod A using one handed techniques secondary to Pain @ R elbw Pt completed L UE AROM for 3 sets of 10 reps Instructed on EC /pacing tasks Call light and phone in reach All lines, monitors, IV's, equipment in place and intact pre and post visit. RN notified of patient's performance/location end of session. Mobility Status-White Board Mobility Status Communication-White Board Updated?: Yes Please refer to the Filed Flowsheet OT Treatment for further details. Refer to care plan for goals. If this is the last Occupational Therapy visit, this serves as the discharge summary. OT x [phone] * Dipak Padilla MD - 10/26/2023 3:23 PM CDT Internal Medicine Progress Note -Hospitalist Admit Date: 10/12/2023 4:19 AM Hospital Day: 14 Clinical Course: 72 independent living, history of AFib, CHF, VALENTINA on BiPAP at nighttime, COPD, CKD was admitted for sepsis and lower extremity cellulitis Started on IV antibiotics Course complicated by significant confusion requiring Neurology consultation. Also noted severe hypernatremia. NG was placed. 10/19 mentally better 10/20 NG was pulled out, passed swallow eval, oriented 10/21 feels better overall improving, can move out of IMCU 5/19 improved, now on room air 10/23 stable New Symptoms: Doing okay, but complains about right elbow pain. States it began hurting after being moved. No other complaints. Nursing without other concerns. Objective: Vitals: 10/26/23 0757 10/26/23 0823 10/26/23 1224 10/26/23 1416 BP: 143/74 138/81 Pulse: 94 67 82 Resp: 17 16 16 Temp: 98.6 ??F (37 ??C) 97.9 ??F (36.6 ??C) SpO2: 100% 99% 98% 98% Weight: Height: General appearance: Awake responsive, able to communicate and ask the right questions Left pupil is bigger than right Heart: normal rate Lungs: breath sounds normal and symmetric; no rales or wheezes Abdomen: soft without mass, non-tender, with normal bowel sounds Extremities: no clubbing, cyanosis or edema, chronic venous insufficiency changes on bilateral calves. Right elbow with some erythema with tenderness with rotation of the right hand Intake/Output Summary (Last 24 hours) at 10/26/2023 1523 Last data filed at 10/26/2023 1426 Gross per 24 hour Intake 240 ml Output 1600 ml Net -1360 ml Current Medications: MEDICATIONS FOR CURRENT ENCOUNTER: SCHEDULED MEDICATIONS: albuterol-ipratropium (Duo-Neb) nebulizer solution 3 mL, Inhalation, q6h apixaban (Eliquis) tablet 5 mg, Oral, BID aspirin chew tablet 81 mg, Oral, QDAY docusate sodium (Colace) capsule 100 mg, Oral, BID doxycycline monohydrate capsule 100 mg, Oral, QDAY insulin aspart (NovoLOG) pen 0-12 Units, Subcutaneous, 4X/day - AC & HS lidocaine (Lidoderm) 5 % patch 1 patch, Transdermal, q24h metoprolol tartrate IR (Lopressor) tablet 25 mg, Oral, BID pantoprazole EC (Protonix) tablet 40 mg, Oral, QDAY rifAXIMin (Xifaxan) tablet 550 mg, Oral, BID senna-docusate (Senokot-S) tablet 1 tablet, Oral, QDAY venlafaxine (Effexor) tablet 37.5 mg, Oral, QDAY [COMPLETED] magnesium sulfate 2 g in 50 mL bolus, Intravenous, Once CONTINUOUS MEDICATIONS: 0.9% NaCl flush bag, Intravenous, CONTINUOUS PRN PRN MEDICATIONS: Or Or 0.9% NaCl flush bag, Intravenous, CONTINUOUS PRN acetaminophen (Tylenol) tablet 650 mg, Oral, q6h PRN bisacodyl (Dulcolax) suppository 10 mg, Rectal, QDAY PRN dextrose 10 % IV bolus, Intravenous, PRN dextrose 10 % IV bolus, Intravenous, PRN glucagon (Glucagen) injection 1 mg, Subcutaneous, PRN glucose (Diabetic Use) oral gel, Oral, PRN HYDROcodone-acetaminophen ([place]) 5-325 MG tablet 1 tablet, Oral, q8h PRN ondansetron (Zofran) injection 4 mg, Intravenous, q4h PRN senna (Senokot) tablet 8.6 mg, Oral, BID PRN Data: Recent Labs Component Name 10/26/23 0359 10/25/23 0411 10/24/23 0517 SODIUM 144 146* 144 POTASSIUM 4.1 3.9 3.6 BUN CREATININE 1.08 1.27* 1.29* GLUCOSE 103 109* 101 Recent Labs Component Name 10/26/23 0639 10/25/23 0411 10/24/23 0517 WBC 17.7* 14.5* 14.4* HGB 10.8* 11.7* 11.6* HCT 33.3* 38.2* 36.2* PLTCOUNT 195 175 171 Assessment and Plan Optimize electrolyte Physical therapy Adding sent He will need rehabilitation reported a run of V-tach, 1. Altered mental status Completely resolved 2. Septic shock presented on admission IV fluids, IV antibiotics resolved 3. Left thigh cellulitis looks to be improving almost erythema has gone Continue with IV antibiotic CT scan showed no soft tissue gas and no abscess Surgery and Infectious Disease managing On oral antibiotics at this point 4. Group G strep bacteremia Secondary to above Continued on ceftriaxone until 10/23 - now on oral doxycycline - Noted chronic suppressive antibiotics at home. 5. Lactic acidosis resolved 6. Hypernatremia - improved previously - mild increase today - monitor 7. Difficulty swallowing Likely secondary to altered mental status. - NG removed 10/20 started on diet 8. Acute on chronic kidney disease likely ATN in the settings of shock also received contrast Improving - remove cabral today - monitor closely 9. Acute on chronic hypoxemic respiratory failure looks to be much better Extubated May 8 Currently on nasal cannula 10. History of COPD no wheezing 11. History of CHF monitor fluid status 12. History of atrial fibrillation on Eliquis and metoprolol 13. Michaud cirrhosis continue rifaximin will stop lactulose 14. Hypokalemia repleted 15. 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 Right elbow pain - ? Dislocation - x-ray assessment - pain control Patient's Functional Baseline prior to admit: independent Discharge Planning to Next Site of Care: Most likely to need some kind of rehabilitation Anticipated discharge date: 10/23 READMISSION RISK SCORE is 16 at 3:23 PM 10/26/2023. DVT prophylaxis: Eliquis Full Code Dipak Padilla MD 10/26/2023 3:23 PM Portions of this note may be dictated using voice recognition software. Variances in spelling and vocabulary are possible and unintentional. Not all errors are caught/corrected. Please notify the author if any discrepancies are noted or if the meaning of any statement is not clear. These grammatical oversights have no impact on the medical care provided to the patient. Time in which this note is created does not match the time of rounding/clinical exam. * Bell Ordonez - 10/26/2023 2:15 PM CDT I will monitor Mr. Keys respiratory status today and wean as tolerated. * Makayla Echavarria Cm, RN - 10/26/2023 12:59 PM CDT Care Coordination Progress Note Anticipated level of care at discharge: Care Home - Skilled Facility, Home Health Care Comment: see progress sect for all snf referrals made: Anticipated level of care provider: None: Anticipated Discharge Date: 10/28/23: Discharge Plan: SNF near [place], [place] No accepting facility at this time. Please see SW notes for further discharge details. Orientation Level: Oriented X4: Family Support (Name and Phone): Extended Emergency Contact Information Primary Emergency Contact: Trinity Keys Address: [address] [place] [address] [place] [address] [facility] Mobile Relation: Spouse City Manager needed? No Transportation at Discharge: Ambulance: READMISSION RISK SCORE is 16 at 12:59 PM 10/26/2023.: Name: Makayla Echavarria RN * Aneta Whittington MD - 10/26/2023 10:57 AM CDT Cardiology Progress Note Admit Date: 10/12/2023 4:19 AM Hospital Day: 14 Chief complaint: SOB, cough, vomiting, fatigue, left thigh pain Symptoms No new complaints Tele- Aflutter Data Vitals: 10/26/23 0300 10/26/23 0431 10/26/23 0757 10/26/23 0823 BP: 157/75 143/74 Pulse: 85 83 94 Resp: 18 17 Temp: 97.3 ??F (36.3 ??C) 98.6 ??F (37 ??C) SpO2: 99% 100% 100% 99% Weight: Height: Intake/Output Summary (Last 24 hours) at 10/26/2023 1058 Last data filed at 10/26/2023 0700 Gross per 24 hour Intake -- Output 1200 ml Net -1200 ml Exam- reviewed/unchanged General appearance: alert, cooperative, no distress Chest: diminished breath sounds Cardiovascular: irregular rhythm, normal S1 and S2 Abdomen: soft without mass, non-tender, with normal bowel sounds Extremities: trace LE edema, left thigh erythema/swelling My review of labs, imaging, notes and other tests is significant for Recent Labs Component Name 10/26/23 0639 10/25/23 0411 10/24/23 0517 WBC 17.7* 14.5* 14.4* HGB 10.8* 11.7* 11.6* HCT 33.3* 38.2* 36.2* PLTCOUNT 195 175 171 Recent Labs Component Name 10/26/23 0359 10/25/23 0411 10/24/23 0517 SODIUM 144 146* 144 POTASSIUM 4.1 3.9 3.6 CHLORIDE 113* 115* 115* CO2 19* 23 21* BUN 17 19 22 CREATININE 1.08 1.27* 1.29* GLUCOSE 103 109* 101 CALCIUM 9.3 8.9 8.8 Magnesium Date Value Ref Range Status 10/26/2023 1.8 1.6 - 2.6 mg/dL Final Recent Labs Component Name 08/20/20 0000 07/24/17 0508 04/23/17 1103 TSH 1.27 2.518 1.64 Medications albuterol-ipratropium (Duo-Neb) nebulizer solution 3 mL, Inhalation, q6h apixaban (Eliquis) tablet 5 mg, Oral, BID aspirin chew tablet 81 mg, Oral, QDAY docusate sodium (Colace) capsule 100 mg, Oral, BID doxycycline monohydrate capsule 100 mg, Oral, QDAY insulin aspart (NovoLOG) pen 0-12 Units, Subcutaneous, 4X/day - AC & HS lidocaine (Lidoderm) 5 % patch 1 patch, Transdermal, q24h magnesium sulfate 2 g in 50 mL bolus, Intravenous, Once metoprolol tartrate IR (Lopressor) tablet 25 mg, Oral, BID pantoprazole EC (Protonix) tablet 40 mg, Oral, QDAY rifAXIMin (Xifaxan) tablet 550 mg, Oral, BID senna-docusate (Senokot-S) tablet 1 tablet, Oral, QDAY venlafaxine (Effexor) tablet 37.5 mg, Oral, QDAY [COMPLETED] magnesium sulfate 2 g in 50 mL bolus, Intravenous, Once Readmission Risk Score: If there is no EVENTS ASSOCIATE Total Score indicated, this patient has yet to be assessed for Readmission Risk or the BNA Score was < 10. If the patient has been assessed, the score is: Assessment Septicemia Chronic Afib on Eliquis Run of NSVT Prior PE/DVT MICHAUD RADHA on CKD Dilated CM; EF 45% Plan Supplement Mag Antibiotics per ID Lasix on hold, watch for signs of volume overload Plan SNF on dc Aneta Whittington MD 10/26/2023 * Lucía Castaneda DO - 10/26/2023 8:52 AM CDT Images from the original note were not included. Infectious Diseases Progress Note José Miguel Keys 10/13/2023 Hospital Day 14 Subjective Awake but appears tired Left thigh pain and erythema improved afebrile Abx Ceftriaxone 10/12- Clindamycin 10/11-10/17 Vanc 10/11-10/13 Flagyl 10/11-10/12 Cefepime 10/11 Exam BP 143/74 (BP Location: Right arm, Patient Position: Lying) Pulse 94 Temp 98.6 ??F (37 ??C) (Oral) Resp 17 Ht 1.803 m (5' 10.98 ) Wt 111.1 kg (245 lb) SpO2 99% BMI 34.19 kg/m?? General: NAD, fatigued Neuro: alert, responds appropriately Lungs: non-labored on NC, diminished at bases CV: normal rate, regular Abd: abdominal distension improved Ext: Left thigh and leg less redness. Wrinkles present to thigh. Mild ttp. No induration. R IJ CVC 10/10-10/13 Data Recent Labs Component Name 10/26/23 0639 10/25/23 0411 10/24/23 0517 WBC 17.7* 14.5* 14.4* HGB 10.8* 11.7* 11.6* HCT 33.3* 38.2* 36.2* PLTCOUNT 195 175 171 Recent Labs Component Name 10/26/23 0359 10/25/23 0411 10/24/23 0517 SODIUM 144 146* 144 POTASSIUM 4.1 3.9 3.6 CHLORIDE 113* 115* 115* CO2 19* 23 21* BUN 17 22 CREATININE 1.08 1.27* 1.29* GLUCOSE 103 109* 101 CALCIUM 9.3 8.9 8.8 Recent Labs Component Name 10/26/23 0359 10/25/23 0411 10/24/23 0517 10/20/23 0353 10/19/23 0336 10/18/23 0745 10/17/23 1421 10/17/23 0336 ALBUMIN 2.4* 2.5* 2.4* - 2.5* 2.5* - 2.5* ALKPHOS - - - - 80 81 - 73 ALT - - - - 38 45 - 53 AST - - - - 31 32 - 57* TBIL - - - - 0.8 1.1 - 0.5 TPROT - - - - 6.8 6.8 - 7.1 - = values in this interval not displayed. Microbiology Blood culture 10/10 Dandre Group G Strep (R clinda) 10/11 negative Radiology 10/10 CXR: Mild interstitial edema vs senescent change 10/10 Venous Doppler LLE: No DVT 10/10 CTA Chest: Distended gallbladder, cholelithiasis. No PE 10/10 CT A/P wo: stone in gallbladder neck. L1-2 fusion. Mild peripancreatic inflammatory changes 10/11 CT LLE wo: There is a moderate cellulitis in the skin and subcutaneous soft tissues along the medial aspect of the left thigh. No gas is seen in the soft tissues. No drainable abscess collection is seen. No evidence for inflammatory change in the fascial planes of the left thigh. 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 10/15 CT C/A/P wo: Moderate bilateral loculated pleural effusions. Slightly nodular [...] blood products given an adjacent soft tissue contusioninjury in the left lateral soft tissues and a mildly displaced left posterior 11th rib fracture. Nofree air identified. Subtle hazy stranding in the upper abdominal mesentery which could reflect posttraumatic changes/mesenteric injury or mesenteritis. This is in proximity of the pancreas however is felt less likely reflect pancreatitis. Recommend correlation with patient history and lipase. Diffuse bladder wall thickening which could be seen in the setting of cystitis. Recommend correlation with urinalysis. KUB 10/21 MEDICATIONS FOR CURRENT ENCOUNTER: SCHEDULED MEDICATIONS: albuterol-ipratropium (Duo-Neb) nebulizer solution 3 mL, Inhalation, q6h apixaban (Eliquis) tablet 5 mg, Oral, BID aspirin chew tablet 81 mg, Oral, QDAY docusate sodium (Colace) capsule 100 mg, Oral, BID doxycycline monohydrate capsule 100 mg, Oral, QDAY insulin aspart (NovoLOG) pen 0-12 Units, Subcutaneous, 4X/day - AC & HS lidocaine (Lidoderm) 5 % patch 1 patch, Transdermal, q24h magnesium sulfate 2 g in 50 mL bolus, Intravenous, Once metoprolol tartrate IR (Lopressor) tablet 25 mg, Oral, BID pantoprazole EC (Protonix) tablet 40 mg, Oral, QDAY rifAXIMin (Xifaxan) tablet 550 mg, Oral, BID senna-docusate (Senokot-S) tablet 1 tablet, Oral, QDAY venlafaxine (Effexor) tablet 37.5 mg, Oral, QDAY [COMPLETED] magnesium sulfate 2 g in 50 mL bolus, Intravenous, Once CONTINUOUS MEDICATIONS: 0.9% NaCl flush bag, Intravenous, CONTINUOUS PRN PRN MEDICATIONS: Or Or 0.9% NaCl flush bag, Intravenous, CONTINUOUS PRN acetaminophen (Tylenol) tablet 650 mg, Oral, q6h PRN bisacodyl (Dulcolax) suppository 10 mg, Rectal, QDAY PRN dextrose 10 % IV bolus, Intravenous, PRN dextrose 10 % IV bolus, Intravenous, PRN glucagon (Glucagen) injection 1 mg, Subcutaneous, PRN glucose (Diabetic Use) oral gel, Oral, PRN HYDROcodone-acetaminophen ([place]) 5-325 MG tablet 1 tablet, Oral, q8h PRN ondansetron (Zofran) injection 4 mg, Intravenous, q4h PRN senna (Senokot) tablet 8.6 mg, Oral, BID PRN Assessment --Group G strep septicemia with septic shock, concern for left thigh nec fasc or cellulitis with myositis and Streptococcal toxic shock syndrome CK and CRP not majorly elevated, CK seems to have peaked Weaned off pressors IVIG 10/11-10/12 CT WITHOUT contrast without evidence for gas 10/11 and 10/14. Surgery evaluated and both times recommended no surgery CT C/A/P non-specific peripancreatic finding was also reported on outside initial CT and his lipasewas normal on admit. Liver enzymes not consistent with a hepatobiliary process. Pleural effusion likely from volume state I do not think there is an additional process for how sick he is. I think this was streptococcal toxic shock from left leg in a cirrhosis patient that developed RADHA. His leg does not currently look great but in several ways it looks better than the first 3 days of admission. He is going to have a very slow recovery. CRP about 60% better over the one week since admission. 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 Denies CP, or dyspnea Data Vitals: 10/26/23 0300 10/26/23 0431 10/26/23 0757 10/26/23 0823 BP: 157/75 143/74 Pulse: 85 83 94 Resp: 18 17 Temp: 97.3 ??F (36.3 ??C) 98.6 ??F (37 ??C) SpO2: 99% 100% 100% 99% Weight: Height: Temp (30hrs) Max:99.4 ??F (37.4 ??C) Intake/Output Summary (Last 24 hours) at 10/26/2023 0845 Last data filed at 10/26/2023 0700 Gross per 24 hour Intake -- Output 1200 ml Net -1200 ml Medications have been reviewed Exam General appearance: no distress HEENT: Grossly unremarkable Heart: regular rhythm, normal S1 and S2, Lungs: breath sounds clear Abdomen: soft , NT Extremities: + edema Neuro: No focal deficits. Recent Labs Component Name 10/26/23 0639 10/25/23 0411 10/24/23 0517 WBC 17.7* 14.5* 14.4* HGB 10.8* 11.7* 11.6* HCT 33.3* 38.2* 36.2* PLTCOUNT 195 175 171 Recent Labs Component Name 10/26/23 0359 10/25/23 0411 10/24/23 0517 03/08/23 1347 08/23/22 2024 02/09/22 0921 08/03/21 1025 01/09/21 1055 09/05/20 1325 02/03/19 0106 09/19/17 0243 09/18/17 0003 SODIUM 144 146* 144 - - - 139 137 140 - - - NA - - - - 141 - - - - - 138 140 POTASSIUM 4.1 3.9 3.6 - 4.6* - 4.7 4.4 4.2 - 4.9* 3.4* CHLORIDE 113* 115* 115* - - - 102 102 103 - - - CO2 19* 23 21* - 26 - 27 26 28 - 34* 35* BUN 17 19 22 - 26 - 41* 50* 27* - 26 25 CREATININE 1.08 1.27* 1.29* - 1.60* - 1.89* 2.07* 1.46* - 0.6 0.6 GLUCOSE 103 109* 101 - 113 - 124* 144* 109* - 153* 135* CALCIUM 9.3 8.9 8.8 - 10.3* - 9.6 9.7 9.9 - 9.1 9.0 EGFR 72* 59* 58* - 45* - 35* 31* 48* - >60 >60 EGFRAFR - - - - - - 40* 36* 55* - - - - = values in this interval not displayed. @ Recent Labs Component Name 10/17/23 2117 10/17/23 1434 10/17/23 0811 10/17/23 0420 10/12/23 0508 09/10/17 0557 09/09/17 0841 09/09/17 0422 FIO2 - 30.0 40.0 40.0 - 40.0 100.0 100.0 PH 7.39 7.45 7.32* 7.32* - 7.45 7.51* 7.41 PCO2 57* 48* 61* 61* - 44 38 45 BE 7.8* 8.2* 3.8* 3.9* - 5.4* 5.7* 2.4* HCO3 - - - - - 30.0* 29.2* 27.4* PO2 135* 86 146* 110* - 80 274* 65* O2SAT 100 99 99 99 - - - - HSF5BMA 34.5* 33.4* 31.4* 31.4* - - - - - = values in this interval not displayed. Assessment/Plan: Acute hypercapnic respiratory failure: Patient is currently on BiPAP with an IPAP of 18 and EPAP of8 with 2L oxygen bled in.. Patient has BiPAP at home with settings of IPAP of 18 and EPAP of 14 cm water pressure. Significant improvement with resolution of respiratory acidosis but has chronic hypercapnia. On 1L NC during the day. Wean oxygen down to room air-keep saturation more than 90 percent Altered mental status: Resolved. Awake, responsive, able to answer questions. Presumed to be secondary to hypercapnic respiratory failure. CT Head without acute pathology. EEG ok. LFTT ok, Ammonia ok, on Rifaximin empirically, off Lactulose Bilateral pleural effusion with attendant atelectasis: CXR 10/17/2023 shows significant improvement with small let pleural effusion. Repeat CXR shows bibasilar atelectasis. Hypernatremia presumably secondary to diuresis. Na at 146. Patient off IV fluids. Nephrology is following Group G Streptococcus bacteremia per blood cultures at outside facility: Patient has completed Ceftriaxone , still on doxycycline. Id is following patient Excessive narcotic use during this hospitalization: Patient is now off Narcan drip Anasarca during the hospitalization: Echocardiogram showed EF of 45 percent, BNP remains elevated but patient is clinically less fluid overloaded. Diuretics are being held secondary to hypernatremia History of atrial fibrillation: Patient is on beta-fe and Eliquis Code status: Full * Yanira Macias MD - 10/26/2023 8:21 AM CDT Neurology Progress Note Patient Name José Miguel Keys Days of Admission: 14 Reason for Visit Mental status changes Clinical Course/New Symptoms Patient is a 72 year old male with a history of atrial fibrillation, on Eliquis,CHF, COPD, CKD, coronary artery disease, diabetes,previous DVT, VALENTINA on BiPAP at night who was transferred to our facility secondary to sepsis/ left thigh cellulitis. Rapid response called 10/16/2023 due to increased respiratory distress and mental status changes. 0.4mg narcan given as total of 60mg oxycodone has been given during the last 24 hours. ABG obtained. PH 7.31, CO2 61, HCO3 30.7. CT brain did not show acuteprocess. Awake and follows commands No new complains Data Reviewed CT brain without acute process Ammonia level 26 EEG without discharges Objective Patient Vitals for the past 24 hrs: Temp Pulse Resp BP SpO2 O2 % (FiO2) 10/26/23 0757 98.6 ??F (37 ??C) 94 17 143/74 100 % -- 10/26/23 0431 97.3 ??F (36.3 ??C) 83 18 157/75 100 % -- 10/26/23 0300 -- 85 -- -- 99 % -- 10/26/23 0055 -- -- -- -- 98 % -- 10/26/23 0026 -- -- -- -- 99 % -- 10/25/23 2346 97.7 ??F (36.5 ??C) 76 20 156/77 98 % -- 10/25/23 2335 -- 88 -- -- 98 % 21 % 10/25/234 -- 86 -- -- 100 % -- 10/25/232011 98 ??F (36.7 ??C) 72 20 142/75 100 % -- 10/25/23 1634 99.4 ??F (37.4 ??C) 78 20 151/89 100 % -- 10/25/23 1551 -- 78 -- -- -- 21 % 10/25/23 1536 -- 84 20 -- 98 % -- 10/25/23 1244 98.6 ??F (37 ??C) 83 22 135/83 99 % -- 10/25/23 1032 -- 97 -- -- -- -- 10/25/23 0957 -- -- -- -- 96 % -- 10/25/23 0936 -- 92 20 -- 98 % -- Labs: Recent Labs Component Name 10/26/23 0639 10/25/23 0411 10/24/23 0517 WBC 17.7* 14.5* 14.4* HGB 10.8* 11.7* 11.6* HCT 33.3* 38.2* 36.2* PLTCOUNT 195 175 171 Recent Labs Component Name 10/26/23 0359 10/25/23 0411 10/24/23 0517 10/19/23 1639 10/19/23 0336 10/18/23 0745 10/17/23 1421 10/17/23 0336 SODIUM 144 146* 144 - 156* 153* - 146* POTASSIUM 4.1 3.9 3.6 - 3.3* 3.7 - 5.6* CHLORIDE 113* 115* 115* - 120* 113* - 115* CO2 19* 23 21* - 27 28 - 20* BUN 17 19 22 - 63* 81* - 89* CREATININE 1.08 1.27* 1.29* - 1.83* 2.34* - 2.51* GLUCOSE 103 109* 101 - 120* 152* - 107* CALCIUM 9.3 8.9 8.8 - 9.3 9.5 - 9.0 ALBUMIN 2.4* 2.5* 2.4* - 2.5* 2.5* - 2.5* ALKPHOS - - - - 80 81 - 73 ALT - - - - 38 45 - 53 AST - - - - 31 32 - 57* TBIL - - - - 0.8 1.1 - 0.5 TPROT - - - - 6.8 6.8 - 7.1 EGFR 72* 59* 58* - 38* 28* - 26* - = values in this interval not displayed. Recent Labs Component Name 08/20/20 0000 CHOL 150 TRIG 73 HDL 45 Recent Labs Component Name 10/12/23 0503 03/08/23 1349 08/10/22 1259 INR 1.2* 1.0 1.1 I have reviewed chart and the pertinent images and studies are personally reviewed Past Medical History: Diagnosis Date Actinic keratosis Arthritis Asthma (HCC) Atrial fibrillation, chronic (HCC) Basal cell carcinoma CAD (coronary artery disease) Clotting disorder (HCC) Colitis COPD (chronic obstructive pulmonary disease) (HCC) Diabetes (HCC) DVT (deep venous thrombosis) (HCC) Dyslipidemia Eczema GERD (gastroesophageal reflux disease) Heart attack (HCC) High blood pressure Hx of blood clots Keloid Kidney disease Lentigo maligna melanoma (HCC) MRSA (methicillin resistant staph aureus) culture positive 07/29/2017; 02/04/19; 04/29/2019 07/29/17-Disc- tissue culture MRSA; R hip; nasal swab+ Obstructive sleep apnea VALENTINA (obstructive sleep apnea) Other cirrhosis of liver (HCC) Peripheral neuropathy Psoriasis S/P PICC central line placement 02/13/2019 [facility] VAT R basilic Seizures (HCC) Squamous cell carcinoma VRE (vancomycin resistant enterococcus) culture positive 04/29/2019 rectal swab+ 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 Tobramycin Eye Itching red around the eyes, puffy, itchy Family History Problem Relation Name Age of Onset CAD (Coronary Artery Disease) Mother age 65 Cirrhosis Father Cancer - Breast Neg Hx CVA Neg Hx Hemophilia Neg Hx Cancer - Other Neg Hx Eczema Neg Hx Psoriasis Neg Hx Cancer - Skin, Non Melanoma Neg Hx Cancer - Skin, Melanoma Neg Hx Social History Socioeconomic History Marital status: Spouse name: Not on file Number of children: Not on file Years of education: Not on file Highest education level: Not on file Occupational History Not on file Tobacco Use Smoking status: Former Types: Cigarettes Quit date: 06/06/1981 Years since quittin.4 Smokeless tobacco: Never Vaping Use Vaping Use: Never used Substance and Sexual Activity Alcohol use: No Drug use: No Sexual activity: Not on file Other Topics Concern Not on file Social History Narrative Merged History Encounter [place] war Social Determinants of Health Financial Resource Strain: Low Risk (10/14/2023) Overall Financial Resource Strain (CARDIA) Difficulty of Paying Living Expenses: Not hard at all Food Insecurity: No Food Insecurity (10/14/2023) Hunger Vital Sign Worried About Running Out of Food in the Last Year: Never true Ran Out of Food in the Last Year: Never true Transportation Needs: No Transportation Needs (10/14/2023) PRAPARE - Transportation Lack of Transportation (Medical): No Lack of Transportation (Non-Medical): No Stress: No Stress Concern Present (10/14/2023) [employer] - Occupational Stress Questionnaire Feeling of Stress : Only a little Housing Stability: Low Risk (10/14/2023) Housing Stability Vital Sign Unable to Pay for Housing in the Last Year: No Number of Places Lived in the Last Year: 1 Unstable Housing in the Last Year: No MEDICATIONS FOR CURRENT ENCOUNTER: SCHEDULED MEDICATIONS: albuterol-ipratropium (Duo-Neb) nebulizer solution 3 mL, Inhalation, q6h apixaban (Eliquis) tablet 5 mg, Oral, BID aspirin chew tablet 81 mg, Oral, QDAY docusate sodium (Colace) capsule 100 mg, Oral, BID doxycycline monohydrate capsule 100 mg, Oral, QDAY insulin aspart (NovoLOG) pen 0-12 Units, Subcutaneous, 4X/day - AC & HS lidocaine (Lidoderm) 5 % patch 1 patch, Transdermal, q24h metoprolol tartrate IR (Lopressor) tablet 25 mg, Oral, BID pantoprazole EC (Protonix) tablet 40 mg, Oral, QDAY rifAXIMin (Xifaxan) tablet 550 mg, Oral, BID senna-docusate (Senokot-S) tablet 1 tablet, Oral, QDAY venlafaxine (Effexor) tablet 37.5 mg, Oral, QDAY [COMPLETED] magnesium sulfate 2 g in 50 mL bolus, Intravenous, Once CONTINUOUS MEDICATIONS: 0.9% NaCl flush bag, Intravenous, CONTINUOUS PRN PRN MEDICATIONS: Or Or 0.9% NaCl flush bag, Intravenous, CONTINUOUS PRN acetaminophen (Tylenol) tablet 650 mg, Oral, q6h PRN bisacodyl (Dulcolax) suppository 10 mg, Rectal, QDAY PRN dextrose 10 % IV bolus, Intravenous, PRN dextrose 10 % IV bolus, Intravenous, PRN glucagon (Glucagen) injection 1 mg, Subcutaneous, PRN glucose (Diabetic Use) oral gel, Oral, PRN HYDROcodone-acetaminophen ([place]) 5-325 MG tablet 1 tablet, Oral, q8h PRN ondansetron (Zofran) injection 4 mg, Intravenous, q4h PRN senna (Senokot) tablet 8.6 mg, Oral, BID PRN Physical Exam General appearance: well developed, in no apparent distress Head: Atraumatic, no obvious abnormality Neck: Normal carotid pulses, no bruits CVS: S1 S2 heard. No murmurs or gallop heard. Resp: Air entry is equal bilaterally without evidence of crackles or rhonchi. Abd: Non tender, non distended and no evidence of organomegaly. Ext: Distal pulses are preserved, no edema Psychiatric: no depression, no anxiety Skin: No rashes, no change of color Neuro Exam: Mental Status: More awake, follows simple commands Speech: has BiPAP on, nonverbal Cranial Nerves: 1. (Cranial Nr 2) Fundii - Not able to test, pupil reactive to light 2. (Cranial Nr 3,4,6) Extra Ocular Movements - Intact 3. (Cranial Nr 5) Facial sensation - Equal Bilaterally 4. (Cranial Nr 7) Facial expression - No Facial Asymmetry 5. (Cranial Nr 8) Hearing - Intact to conversation and finger rub 6. (Cranial Nr 9, 10) Voice - No change in quality or pitch Palate - Elevates equally Gag - Present 7. (Cranial Nr 11) Elevate shoulder - Bilaterally without paralysis 8. (Cranial Nr 12) Tongue - No deviation or wasting Motor: Has spontaneous movements in all extremities Sensation: withdrawal to pain Reflexes: DTRs Symmetric 1+ with plantar responses both sides Coordination/Cerebellar: not able to test Gait: not tested. Assessment: 1. Mental status changes Suspect metabolic encephalopathy secondary to infection and respiratory distress Neurologically would like to rule out nonconvulsive seizure and embolic strokes, but both diagnosesare less likely CT brain without acute process 2. Septic shock Left thigh cellulitis Group G strep bacteremia 3. 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 RADHA on CKD 5. History of MICHAUD liver cirrhosis 6. COPD Plan: 1. EEG reviewed without discharges 2. Continue Eliquis and low dose of ASA 3. Pulmonology follows 4. S/p Ceftriaxone and chronic Doxycycline 5. Ammonia level checked which is normal S/p Lactulose 6. Hold off MRI brain since mental status has been better 7. Follow up with exam Yanira Macias MD * Radha Malone MSW - 10/26/2023 8:00 AM CDT New Facility Referral Follow-up Level of Care (SNF/Medicaid NH/Rehab/Safety Lead Care/LTACH): snf requested. Ss spke with pts spouse Trinity Keys @ [phone], this worker asking for additional fac choices. Spouse to advise if with other choices. Additional fac below provided by family/ referral made. Ss to f/u with pt once rtn calls rcd. Ss provided ss contact# for f/u. This worker left mess with the center receptionist @ [facility] for Emma fac merchandising coordinator. Ss awaiting rtn call. Pt has been @ fac in past. Pt has [employer] and will need a contracted fac. [facility] to obtain snf Auth once fac with approval with an available bed, and pt/fam agreeable to plcmnt choice. See cm note for all Auth updates. Referrals initiated: Continued Care and Services - Admitted Since 10/12/2023 Destination Service Provider Request Status Selected Services Address Phone Fax Patient Preferred [facility] Pending - Request Sent N/A [id number] [phone] -- [facility] Pending - Request Sent N/A [address] [facility] [id number] [phone] -- If Medicare-3 day qualifying stay verified: pt has Aetna and will need Auth. See cm note for all Auth updates. monitoring facility responses Comments/changes:@ discharge nrsg to please send fac orders, chart and discharge summary. Name: CHRIS Garcia Phone: [phone] * Max Garzon, RT - 10/26/2023 6:20 AM CDT Patient only wore bipap 18/8 for 1.5 hours last night. He says the pressure is still too much. Placed on 1L NC and monitored. Freddy Garzon TONGUE AND QUARTER STITCHER * Constantine Epps RN - 10/26/2023 4:23 AM CDT Problem: Impaired Gas Exchange Goal: Resp rate/effort will be within specified limits Description: To maintain oxygen within normal parameters. RT to monitor. Outcome: Progressing Problem: Fall Risk Goal: Fall risk and fall related injury risk are minimized (interventions related to the fall risk can be found in the flowsheet documentation) Outcome: Progressing Problem: Pain/Discomfort Goal: Patient exhibits reduced pain/discomfort as evidenced by pain scores Outcome: Progressing Goal: Patient uses pharmacological and non-pharmacological pain management strategies. Outcome: Progressing Goal: Patient verbalizes acceptable level of pain relief and ability to engage in desired activity. Outcome: Progressing * Dipak Padilla MD - 10/25/2023 4:10 PM CDT Internal Medicine Progress Note -Hospitalist Admit Date: 10/12/2023 4:19 AM Hospital Day: 13 Clinical Course: 72 independent living, history of AFib, CHF, VALENTINA on BiPAP at nighttime, COPD, CKD was admitted for sepsis and lower extremity cellulitis Started on IV antibiotics Course complicated by significant confusion requiring Neurology consultation. Also noted severe hypernatremia. NG was placed. 10/19 mentally better 10/20 NG was pulled out, passed swallow eval, oriented 10/21 feels better overall improving, can move out of IMCU 10/22 improved, now on room air 10/23 stable New Symptoms: Doing okay, no complaints. Nursing without reported concerns. He slept well. Mentation is reasonable. Objective: Vitals: 10/25/23 1032 10/25/23 1244 10/25/23 1536 10/25/23 1551 BP: 135/83 Pulse: 97 83 84 78 Resp: 22 20 Temp: 98.6 ??F (37 ??C) SpO2: 99% 98% Weight: Height: General appearance: Awake responsive, able to communicate and ask the right questions Left pupil is bigger than right Heart: normal rate Lungs: breath sounds normal and symmetric; no rales or wheezes Abdomen: soft without mass, non-tender, with normal bowel sounds Extremities: no clubbing, cyanosis or edema, chronic venous insufficiency changes on bilateral calves. Left thigh is no longer red and tender. Intake/Output Summary (Last 24 hours) at 10/25/2023 1610 Last data filed at 10/25/2023 0627 Gross per 24 hour Intake 120 ml Output 650 ml Net -530 ml Current Medications: MEDICATIONS FOR CURRENT ENCOUNTER: SCHEDULED MEDICATIONS: albuterol-ipratropium (Duo-Neb) nebulizer solution 3 mL, Inhalation, q6h apixaban (Eliquis) tablet 5 mg, Oral, BID aspirin chew tablet 81 mg, Oral, QDAY docusate sodium (Colace) capsule 100 mg, Oral, BID doxycycline monohydrate capsule 100 mg, Oral, QDAY insulin aspart (NovoLOG) pen 0-12 Units, Subcutaneous, 4X/day - AC & HS lidocaine (Lidoderm) 5 % patch 1 patch, Transdermal, q24h metoprolol tartrate IR (Lopressor) tablet 25 mg, Oral, BID pantoprazole EC (Protonix) tablet 40 mg, Oral, QDAY rifAXIMin (Xifaxan) tablet 550 mg, Oral, BID senna-docusate (Senokot-S) tablet 1 tablet, Oral, QDAY venlafaxine (Effexor) tablet 37.5 mg, Oral, QDAY [COMPLETED] magnesium sulfate 2 g in 50 mL bolus, Intravenous, Once CONTINUOUS MEDICATIONS: 0.9% NaCl flush bag, Intravenous, CONTINUOUS PRN PRN MEDICATIONS: Or Or 0.9% NaCl flush bag, Intravenous, CONTINUOUS PRN acetaminophen (Tylenol) tablet 650 mg, Oral, q6h PRN bisacodyl (Dulcolax) suppository 10 mg, Rectal, QDAY PRN dextrose 10 % IV bolus, Intravenous, PRN dextrose 10 % IV bolus, Intravenous, PRN glucagon (Glucagen) injection 1 mg, Subcutaneous, PRN glucose (Diabetic Use) oral gel, Oral, PRN HYDROcodone-acetaminophen ([place]) 5-325 MG tablet 1 tablet, Oral, q8h PRN ondansetron (Zofran) injection 4 mg, Intravenous, q4h PRN senna (Senokot) tablet 8.6 mg, Oral, BID PRN Data: Recent Labs Component Name 10/25/2341010/24/23 0510/23/23 0437 SODIUM 146* 144 142 POTASSIUM 3.9 3.6 3.6 BUN 19 22 23 CREATININE 1.27* 1.29* 1.19 GLUCOSE 109* 101 104 Recent Labs Component Name 10/25/2341010/24/23 0517 10/23/23 0437 WBC 14.5* 14.4* 15.2* HGB 11.7* 11.6* 11.6* HCT 38.2* 36.2* 37.0* PLTCOUNT 175 171 167 Assessment and Plan Optimize electrolyte Physical therapy Adding sent He will need rehabilitation reported a run of V-tach, 1. Altered mental status Completely resolved 2. Septic shock presented on admission IV fluids, IV antibiotics resolved 3. Left thigh cellulitis looks to be improving almost erythema has gone Continue with IV antibiotic CT scan showed no soft tissue gas and no abscess Surgery and Infectious Disease managing Continue IV antibiotics 4. Group G strep bacteremia Secondary to above Continue on ceftriaxone likely until 10/23 - now on oral doxycycline - Noted chronic suppressive antibiotics at home. 5. Lactic acidosis resolved 6. Hypernatremia - improved previously - mild increase today - monitor 7. Difficulty swallowing Likely secondary to altered mental status. - NG removed 10/20 started on diet 8. Acute on chronic kidney disease likely ATN in the settings of shock also received contrast Improving - remove cabral today - monitor closely 9. Acute on chronic hypoxemic respiratory failure looks to be much better Extubated October 11 Currently on nasal cannula 10. History of COPD no wheezing 11. History of CHF monitor fluid status 12. History of atrial fibrillation on Eliquis and metoprolol 13. Michaud cirrhosis continue rifaximin will stop lactulose 14. Hypokalemia repleted 15. 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 [id number], on chronic suppressive doxycycline 100mg Patient's Functional Baseline prior to admit: independent Discharge Planning to Next Site of Care: Most likely to need some kind of rehabilitation Anticipated discharge date: 10/23 READMISSION RISK SCORE is 15 at 4:10 PM 10/25/2023. DVT prophylaxis: Eliquis Full Code Dipak Padilla MD 10/25/2023 4:10 PM Portions of this note may be dictated using voice recognition software. Variances in spelling and vocabulary are possible and unintentional. Not all errors are caught/corrected. Please notify the author if any discrepancies are noted or if the meaning of any statement is not clear. These grammatical oversights have no impact on the medical care provided to the patient. Time in which this note is created does not match the time of rounding/clinical exam. * Radha Malone MSW - 10/25/2023 3:22 PM CDT New Facility Referral Follow-up Level of Care (SNF/Medicaid NH/Rehab/Safety Lead Care/LTACH): snf updates sent. Pt has been to fac in the past and fam would like pt to rtn if possible. Fac willing to consider and to advise if able to accommodate. Once rtn call rcd f/u can then be done with pt and hospital staff. Referrals initiated: Continued Care and Services - Admitted Since 10/12/2023 Destination Service Provider Request Status Selected Services Address Phone Fax Patient Preferred [facility] Pending - Request Sent N/A [id number] [phone] -- If Medicare-3 day qualifying stay verified: pt has Aetna and will need an Auth. monitoring facility responses Comments/changes:@ discharge nrsg to please send fac orders, chart and discharge summary. Name: CHRIS Garcia Phone: [phone] * Sarahi Pena RCP - 10/25/2023 12:56 PM CDT Per night RT, patient wore BiPAP for @ 3 hours. We will work with him to increase time on BiPAP for all sleep periods. Sarahi Pena RCP 10/25/2023 12:57 PM * Sarahi Pena RCP - 10/25/2023 12:52 PM CDT Problem: Ineffective breathing pattern related to obstructive sleep apnea Goal: Adheres to CPAP (Continuous Positive Airway Pressure) device regimen as prescribed. Outcome: Progressing RT will encourage José Miguel to wear CPAP/BiPAP for all sleep periods. Problem: Ineffective Airway Clearance Goal: Patent airway Outcome: Progressing Rt will encourage José Miguel to slow deep breathe and cough to maintain a patent airway. Sarahi Pena RCP 10/25/2023 12:56 PM * Lucie Gomez, PT - 10/25/2023 11:40 AM CDT Physical Therapy Treatment Summary Chart review completed. Nursing consented for PT. Explained purpose of PT and patient consented to participate in therapy. RECOMMENDATIONS/PLAN: PT Discharge Recommendations: Patient would benefit from multidisciplinary therapy This recommendation is made due to ongoing PT functional needs: address care for self in the home;address functional deficits;patient to return to prior level of care;patient is motivated and actively participating in therapy;patient has ability to improve with skilled therapy intervention Recommended Transportation Method: Stretcher/Ambulance PPE worn by staff: gloves PPE worn by patient: gown - patient, clean;socks - clean AM-PAC Basic mobility score for this patient is Mobility Raw Score:: 8 SUBJECTIVE: Subjective: leg cramping and wants to try sitting up in chair. Take it slow. Patient's Primary Concern: SOB Patient's Goal for the Day: up to recliner Pain Assessment: Pain Location #1 Pain Scale/Observation: Numeric (0-10) Pain Rating Score #1: 8 Sedation Level #1: 1-Awake and alert Behaviors/Assumed Pain Present : Calm OBJECTIVE: Cognition: Orientation Level: Oriented X4 Cognition: Follows Commands-Consistent;Attention/concentration-normal for age;Other (comment) (pt appears anxious.) Level of Consciousness-Adult: Alert Participation: Active Participation Precautions: fall, skin, anxiety, SOB Bed Mobility: Rolling: Moderate Assistance to Right;Requires Verbal Cues for Safety;Requires Physical Cues for Safety;Requires Verbal Cues for Technique;Requires Physical Cues for Technique Supine to Sit: Maximum Assistance;Requires Verbal Cues for Safety;Requires Physical Cues for Safety;Requires Verbal Cues for Technique;Requires Physical Cues for Technique Sit to Supine: Activity Does Not Occur (up in recliner) Transfers: Bed to Chair: Total Assistance Type of Transfer: Mechanical Lift ([place] steady) Transfer Device: Gait belt Mobility: Distance Ambulated (ft): 0 FEET Ambulation: Level of Assistance: Activity Does Not Occur Weight Bearing Status-LLE: Weight Bearing as Tolerated Weight Bearing Status-RLE: Weight Bearing as Tolerated Weight Bearing Status-LUE: Weight Bearing as Tolerated Weight Bearing Status-RUE: Weight Bearing as Tolerated Balance: Sitting - Static: Fair + Sitting - Dynamic: Fair Activity Tolerance: Activity Tolerance: Requires rest breaks;Observed shortness of breath after activity;Complains of shortness of breath after standing activity/gait;Complains of fatigue after standing activity/gait ASSESSMENT: Pt in bed, oriented x4 and willing to work with therapy. Pt c/o pain in his LE due to cramping. Pt agreeable to transfer to recliner. Max assist for supine to sit. Pt tolerated sitting EOB x8 minutes with fair to fair + sitting balance. Pt stood with Ax2 to [place] steady. Static standing for ~15 sec. Pt set up in recliner with LEs elevated and all needs met. Call light and phone in reach with chair alarm activated. All lines, monitors, IV's, equipment in place and intact pre and post visit. Pt educated in PT plan of care, fall precautions, and benefits of OOB activity. RN, notified of patient's performance/location end of session. Cyndie, Manager Banking, present to assist throughout the session. Please refer to the Filed Flowsheet for further details. Refer to Plan of Care for PT goals. If this is the last Physical Therapy visit, this note serves as the discharge summary. [id number] * Yanira Macias MD - 10/25/2023 9:41 AM CDT Neurology Progress Note Patient Name José Miguel Keys Days of Admission: 13 Reason for Visit Mental status changes Clinical Course/New Symptoms Patient is a 72 year old male with a history of atrial fibrillation, on Eliquis,CHF, COPD, CKD, coronary artery disease, diabetes,previous DVT, VALENTINA on BiPAP at night who was transferred to our facility secondary to sepsis/ left thigh cellulitis. Rapid response called 10/16/2023 due to increased respiratory distress and mental status changes. 0.4mg narcan given as total of 60mg oxycodone has been given during the last 24 hours. ABG obtained. PH 7.31, CO2 61, HCO3 30.7. CT brain did not show acuteprocess. Awake and follows commands No new complains Data Reviewed CT brain without acute process Ammonia level 26 EEG without discharges Objective Patient Vitals for the past 24 hrs: Temp Pulse Resp BP SpO2 10/25/23 0749 97.9 ??F (36.6 ??C) 88 18 113/63 98 % 10/25/23 0439 98.2 ??F (36.8 ??C) 96 17 149/79 100 % 10/25/23 0317 -- 85 -- -- 98 % 10/25/23 0149 -- -- -- -- 96 % 10/25/23 0009 97.5 ??F (36.4 ??C) 81 18 123/74 93 % 10/24/23 2307 -- 85 -- -- 98 % 10/24/23 2140 -- 88 -- -- 100 % 10/24/232011 97.6 ??F (36.4 ??C) 84 19 147/88 97 % 10/24/23 1557 -- -- -- -- 97 % 10/24/23 1522 97.9 ??F (36.6 ??C) 85 20 138/82 99 % 10/24/23 1200 97.5 ??F (36.4 ??C) 80 20 146/84 100 % Labs: Recent Labs Component Name 10/25/2341010/24/23 0517 10/23/23 0437 WBC 14.5* 14.4* 15.2* HGB 11.7* 11.6* 11.6* HCT 38.2* 36.2* 37.0* PLTCOUNT 175 171 167 Recent Labs Component Name 10/25/23 04110/24/23 0517 10/23/23 0437 10/19/23 1639 10/19/23 0336 10/18/23 0745 10/17/23 1421 10/17/23 0336 SODIUM 146* 144 142 - 156* 153* - 146* POTASSIUM 3.9 3.6 3.6 - 3.3* 3.7 - 5.6* CHLORIDE 115* 115* 114* - 120* 113* - 115* CO2 23 21* 22 - 27 28 - 20* BUN 19 22 23 - 63* 81* - 89* CREATININE 1.27* 1.29* 1.19 - 1.83* 2.34* - 2.51* GLUCOSE 109* 101 104 - 120* 152* - 107* CALCIUM 8.9 8.8 8.2* - 9.3 9.5 - 9.0 ALBUMIN 2.5* 2.4* 2.3* - 2.5* 2.5* - 2.5* ALKPHOS - - - - 80 81 - 73 ALT - - - - 38 45 - 53 AST - - - - 31 32 - 57* TBIL - - - - 0.8 1.1 - 0.5 TPROT - - - - 6.8 6.8 - 7.1 EGFR 59* 58* 64* - 38* 28* - 26* - = values in this interval not displayed. Recent Labs Component Name 08/20/20 0000 CHOL 150 TRIG 73 HDL 45 Recent Labs Component Name 10/12/23 0503 03/08/23 1349 08/10/22 1259 INR 1.2* 1.0 1.1 I have reviewed chart and the pertinent images and studies are personally reviewed Past Medical History: Diagnosis Date Actinic keratosis Arthritis Asthma (HCC) Atrial fibrillation, chronic (HCC) Basal cell carcinoma CAD (coronary artery disease) Clotting disorder (HCC) Colitis COPD (chronic obstructive pulmonary disease) (HCC) Diabetes (HCC) DVT (deep venous thrombosis) (HCC) Dyslipidemia Eczema GERD (gastroesophageal reflux disease) Heart attack (HCC) High blood pressure Hx of blood clots Keloid Kidney disease Lentigo maligna melanoma (HCC) MRSA (methicillin resistant staph aureus) culture positive 07/29/2017; 02/04/19; 04/29/2019 07/29/17-Disc- tissue culture MRSA; R hip; nasal swab+ Obstructive sleep apnea VALENTINA (obstructive sleep apnea) Other cirrhosis of liver (HCC) Peripheral neuropathy Psoriasis S/P PICC central line placement 02/13/2019 [facility] VAT R basilic Seizures (HCC) Squamous cell carcinoma VRE (vancomycin resistant enterococcus) culture positive 04/29/2019 rectal swab+ 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 Tobramycin Eye Itching red around the eyes, puffy, itchy Family History Problem Relation Name Age of Onset CAD (Coronary Artery Disease) Mother age 65 Cirrhosis Father Cancer - Breast Neg Hx CVA Neg Hx Hemophilia Neg Hx Cancer - Other Neg Hx Eczema Neg Hx Psoriasis Neg Hx Cancer - Skin, Non Melanoma Neg Hx Cancer - Skin, Melanoma Neg Hx Social History Socioeconomic History Marital status: Spouse name: Not on file Number of children: Not on file Years of education: Not on file Highest education level: Not on file Occupational History Not on file Tobacco Use Smoking status: Former Types: Cigarettes Quit date: 06/06/1981 Years since quittin.4 Smokeless tobacco: Never Vaping Use Vaping Use: Never used Substance and Sexual Activity Alcohol use: No Drug use: No Sexual activity: Not on file Other Topics Concern Not on file Social History Narrative Merged History Encounter [place] war Social Determinants of Health Financial Resource Strain: Low Risk (10/14/2023) Overall Financial Resource Strain (CARDIA) Difficulty of Paying Living Expenses: Not hard at all Food Insecurity: No Food Insecurity (10/14/2023) Hunger Vital Sign Worried About Running Out of Food in the Last Year: Never true Ran Out of Food in the Last Year: Never true Transportation Needs: No Transportation Needs (10/14/2023) PRAPARE - Transportation Lack of Transportation (Medical): No Lack of Transportation (Non-Medical): No Stress: No Stress Concern Present (10/14/2023) [employer] [place] [employer] - Occupational Stress Questionnaire Feeling of Stress : Only a little Housing Stability: Low Risk (10/14/2023) Housing Stability Vital Sign Unable to Pay for Housing in the Last Year: No Number of Places Lived in the Last Year: 1 Unstable Housing in the Last Year: No MEDICATIONS FOR CURRENT ENCOUNTER: SCHEDULED MEDICATIONS: albuterol-ipratropium (Duo-Neb) nebulizer solution 3 mL, Inhalation, q6h apixaban (Eliquis) tablet 5 mg, Oral, BID aspirin chew tablet 81 mg, Oral, QDAY docusate sodium (Colace) capsule 100 mg, Oral, BID doxycycline monohydrate capsule 100 mg, Oral, QDAY insulin aspart (NovoLOG) pen 0-12 Units, Subcutaneous, 4X/day - AC & HS lidocaine (Lidoderm) 5 % patch 1 patch, Transdermal, q24h magnesium sulfate 2 g in 50 mL bolus, Intravenous, Once metoprolol tartrate IR (Lopressor) tablet 25 mg, Oral, BID pantoprazole EC (Protonix) tablet 40 mg, Oral, QDAY rifAXIMin (Xifaxan) tablet 550 mg, Oral, BID senna-docusate (Senokot-S) tablet 1 tablet, Oral, QDAY venlafaxine (Effexor) tablet 37.5 mg, Oral, QDAY CONTINUOUS MEDICATIONS: 0.9% NaCl flush bag, Intravenous, CONTINUOUS PRN PRN MEDICATIONS: Or Or 0.9% NaCl flush bag, Intravenous, CONTINUOUS PRN acetaminophen (Tylenol) tablet 650 mg, Oral, q6h PRN bisacodyl (Dulcolax) suppository 10 mg, Rectal, QDAY PRN dextrose 10 % IV bolus, Intravenous, PRN dextrose 10 % IV bolus, Intravenous, PRN glucagon (Glucagen) injection 1 mg, Subcutaneous, PRN glucose (Diabetic Use) oral gel, Oral, PRN HYDROcodone-acetaminophen ([place]) 5-325 MG tablet 1 tablet, Oral, q4h PRN morphine injection 2 mg, Intravenous, q4h PRN ondansetron (Zofran) injection 4 mg, Intravenous, q4h PRN senna (Senokot) tablet 8.6 mg, Oral, BID PRN Physical Exam General appearance: well developed, in no apparent distress Head: Atraumatic, no obvious abnormality Neck: Normal carotid pulses, no bruits CVS: S1 S2 heard. No murmurs or gallop heard. Resp: Air entry is equal bilaterally without evidence of crackles or rhonchi. Abd: Non tender, non distended and no evidence of organomegaly. Ext: Distal pulses are preserved, no edema Psychiatric: no depression, no anxiety Skin: No rashes, no change of color Neuro Exam: Mental Status: More awake, follows simple commands Speech: has BiPAP on, nonverbal Cranial Nerves: 1. (Cranial Nr 2) Fundii - Not able to test, pupil reactive to light 2. (Cranial Nr 3,4,6) Extra Ocular Movements - Intact 3. (Cranial Nr 5) Facial sensation - Equal Bilaterally 4. (Cranial Nr 7) Facial expression - No Facial Asymmetry 5. (Cranial Nr 8) Hearing - Intact to conversation and finger rub 6. (Cranial Nr 9, 10) Voice - No change in quality or pitch Palate - Elevates equally Gag - Present 7. (Cranial Nr 11) Elevate shoulder - Bilaterally without paralysis 8. (Cranial Nr 12) Tongue - No deviation or wasting Motor: Has spontaneous movements in all extremities Sensation: withdrawal to pain Reflexes: DTRs Symmetric 1+ with plantar responses both sides Coordination/Cerebellar: not able to test Gait: not tested. Assessment: 1. Mental status changes Suspect metabolic encephalopathy secondary to infection and respiratory distress Neurologically would like to rule out nonconvulsive seizure and embolic strokes, but both diagnosesare less likely CT brain without acute process 2. Septic shock Left thigh cellulitis Group G strep bacteremia 3. 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 RADHA on CKD 5. History of MICHAUD liver cirrhosis 6. COPD Plan: 1. EEG reviewed without discharges 2. Continue Eliquis and low dose of ASA 3. Pulmonology follows 4. S/p Ceftriaxone and chronic Doxycycline 5. Ammonia level checked which is normal S/p Lactulose 6. Hold off MRI brain since mental status has been better 7. Follow up with exam Yanira Macias MD * Lucía Castaneda DO - 10/25/2023 9:07 AM CDT Images from the original note were not included. Infectious Diseases Progress Note José Miguel Nia Keys 10/13/2023 Hospital Day 13 Subjective Awake but appears tired Left thigh pain and erythema improved afebrile Abx Ceftriaxone 10/12- Clindamycin 10/11-10/17 Vanc 10/11-10/13 Flagyl 10/11-10/12 Cefepime 10/11 Exam BP 113/63 (BP Location: Right arm, Patient Position: Sitting) Pulse 88 Temp 97.9 ??F (36.6 ??C)(Oral) Resp 18 Ht 1.803 m (5' 10.98 ) Wt 111.1 kg (245 lb) SpO2 98% BMI 34.19 kg/m?? General: NAD, fatigued Neuro: alert, responds appropriately Lungs: non-labored on NC, diminished at bases CV: normal rate, regular Abd: abdominal distension improved Ext: Left thigh and leg less redness. Wrinkles present to thigh. Mild ttp. No induration. R IJ CVC 10/10-10/13 Data Recent Labs Component Name 10/25/2341010/24/2351610/23/23436 WBC 14.5* 14.4* 15.2* HGB 11.7* 11.6* 11.6* HCT 38.2* 36.2* 37.0* PLTCOUNT 175 171 167 Recent Labs Component Name 10/25/2341010/24/2351610/23/23436 SODIUM 146* 144 142 POTASSIUM 3.9 3.6 3.6 CHLORIDE 115* 115* 114* CO2 23 21* 22 BUN 19 23 CREATININE 1.27* 1.29* 1.19 GLUCOSE 109* 101 104 CALCIUM 8.9 8.8 8.2* Recent Labs Component Name 10/25/2341010/24/2351610/23/23 0437 10/20/23 0353 10/19/23 0336 10/18/23 0745 10/17/23 1421 10/17/23 0336 ALBUMIN 2.5* 2.4* 2.3* - 2.5* 2.5* - 2.5* ALKPHOS - - - - 80 81 - 73 ALT - - - - 38 45 - 53 AST - - - - 31 32 - 57* TBIL - - - - 0.8 1.1 - 0.5 TPROT - - - - 6.8 6.8 - 7.1 - = values in this interval not displayed. Microbiology Blood culture 10/10 Dandre Group G Strep (R clinda) 10/11 negative Radiology 10/10 CXR: Mild interstitial edema vs senescent change 10/10 Venous Doppler LLE: No DVT 10/10 CTA Chest: Distended gallbladder, cholelithiasis. No PE 10/10 CT A/P wo: stone in gallbladder neck. L1-2 fusion. Mild peripancreatic inflammatory changes 10/11 CT LLE wo: There is a moderate cellulitis in the skin and subcutaneous soft tissues along the medial aspect of the left thigh. No gas is seen in the soft tissues. No drainable abscess collection is seen. No evidence for inflammatory change in the fascial planes of the left thigh. 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 10/15 CT C/A/P wo: Moderate bilateral loculated pleural effusions. Slightly nodular [...] blood products given an adjacent soft tissue contusioninjury in the left lateral soft tissues and a mildly displaced left posterior 11th rib fracture. Nofree air identified. Subtle hazy stranding in the upper abdominal mesentery which could reflect posttraumatic changes/mesenteric injury or mesenteritis. This is in proximity of the pancreas however is felt less likely reflect pancreatitis. Recommend correlation with patient history and lipase. Diffuse bladder wall thickening which could be seen in the setting of cystitis. Recommend correlation with urinalysis. KUB 10/21 MEDICATIONS FOR CURRENT ENCOUNTER: SCHEDULED MEDICATIONS: albuterol-ipratropium (Duo-Neb) nebulizer solution 3 mL, Inhalation, q6h apixaban (Eliquis) tablet 5 mg, Oral, BID aspirin chew tablet 81 mg, Oral, QDAY docusate sodium (Colace) capsule 100 mg, Oral, BID doxycycline monohydrate capsule 100 mg, Oral, QDAY insulin aspart (NovoLOG) pen 0-12 Units, Subcutaneous, 4X/day - AC & HS lidocaine (Lidoderm) 5 % patch 1 patch, Transdermal, q24h magnesium sulfate 2 g in 50 mL bolus, Intravenous, Once metoprolol tartrate IR (Lopressor) tablet 25 mg, Oral, BID pantoprazole EC (Protonix) tablet 40 mg, Oral, QDAY rifAXIMin (Xifaxan) tablet 550 mg, Oral, BID senna-docusate (Senokot-S) tablet 1 tablet, Oral, QDAY venlafaxine (Effexor) tablet 37.5 mg, Oral, QDAY [COMPLETED] cefTRIAXone (Rocephin) 2,000 mg in 0.9% NaCl IV 50 mL IVPB, Intravenous, q24h CONTINUOUS MEDICATIONS: 0.9% NaCl flush bag, Intravenous, CONTINUOUS PRN PRN MEDICATIONS: Or Or 0.9% NaCl flush bag, Intravenous, CONTINUOUS PRN acetaminophen (Tylenol) tablet 650 mg, Oral, q6h PRN bisacodyl (Dulcolax) suppository 10 mg, Rectal, QDAY PRN dextrose 10 % IV bolus, Intravenous, PRN dextrose 10 % IV bolus, Intravenous, PRN glucagon (Glucagen) injection 1 mg, Subcutaneous, PRN glucose (Diabetic Use) oral gel, Oral, PRN HYDROcodone-acetaminophen ([place]) 5-325 MG tablet 1 tablet, Oral, q4h PRN morphine injection 2 mg, Intravenous, q4h PRN ondansetron (Zofran) injection 4 mg, Intravenous, q4h PRN senna (Senokot) tablet 8.6 mg, Oral, BID PRN Assessment --Group G strep septicemia with septic shock, concern for left thigh nec fasc or cellulitis with myositis and Streptococcal toxic shock syndrome CK and CRP not majorly elevated, CK seems to have peaked Weaned off pressors IVIG 10/11-10/12 CT WITHOUT contrast without evidence for gas 10/11 and 10/14. Surgery evaluated and both times recommended no surgery CT C/A/P non-specific peripancreatic finding was also reported on outside initial CT and his lipasewas normal on admit. Liver enzymes not consistent with a hepatobiliary process. Pleural effusion likely from volume state I do not think there is an additional process for how sick he is. I think this was streptococcal toxic shock from left leg in a cirrhosis patient that developed RADHA. His leg does not currently look great but in several ways it looks better than the first 3 days of admission. He is going to have a very slow recovery. CRP about 60% better over the one week since admission. 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 [id number], on chronic suppressive doxycycline 100mg Afib, hx of DVT on eliquis BPH on flomax RADHA on CKD, improved MICHAUD and cirrhosis with small lower esophageal varices on 2022 EGD, portal hypertensive gastropathy Hx of PUD with bleeding COPD Obesity, BMI 34 Plan Continue chronic doxycycline 100mg daily ppx as per prior ID plan PT/OT Will need SNF on discharge * Tiffany Fortune MD - 10/25/2023 8:41 AM CDT Admit Date: 10/12/2023 4:19 AM Hospital Day: 13 Follow Up Acute respiratory failure, AMS New Symptoms Patient awake and oriented to time and place. Denies CP, or dyspnea Data Vitals: 10/25/23 0149 10/25/23 0317 10/25/23 0439 10/25/23 0749 BP: 149/79 113/63 Pulse: 85 96 88 Resp: 17 18 Temp: 98.2 ??F (36.8 ??C) 97.9 ??F (36.6 ??C) SpO2: 96% 98% 100% 98% Weight: Height: Temp (30hrs) Max:98.2 ??F (36.8 ??C) Intake/Output Summary (Last 24 hours) at 10/25/2023 0841 Last data filed at 10/25/2023 0627 Gross per 24 hour Intake 320 ml Output 950 ml Net -630 ml Medications have been reviewed Exam General appearance: no distress HEENT: Grossly unremarkable Heart: regular rhythm, normal S1 and S2, Lungs: breath sounds clear Abdomen: soft , NT Extremities: + edema Neuro: No focal deficits. Recent Labs Component Name 10/25/23 0411 10/24/23 0517 10/23/23 0437 WBC 14.5* 14.4* 15.2* HGB 11.7* 11.6* 11.6* HCT 38.2* 36.2* 37.0* PLTCOUNT 175 171 167 Recent Labs Component Name 10/25/23 0411 10/24/23 0517 10/23/23 0437 03/08/23 1347 08/23/22202302/09/22 0921 08/03/21 1025 01/09/21 1055 09/05/20 1325 02/03/19 0106 09/19/17 0243 09/18/17 0003 SODIUM 146* 144 142 - - - 139 137 140 - - - NA - - - - 141 - - - - - 138 140 POTASSIUM 3.9 3.6 3.6 - 4.6* - 4.7 4.4 4.2 - 4.9* 3.4* CHLORIDE 115* 115* 114* - - - 102 102 103 - - - CO2 23 21* 22 - 26 - 27 26 28 - 34* 35* BUN 19 22 23 - 26 - 41* 50* 27* - 26 25 CREATININE 1.27* 1.29* 1.19 - 1.60* - 1.89* 2.07* 1.46* - 0.6 0.6 GLUCOSE 109* 101 104 - 113 - 124* 144* 109* - 153* 135* CALCIUM 8.9 8.8 8.2* - 10.3* - 9.6 9.7 9.9 - 9.1 9.0 EGFR 59* 58* 64* - 45* - 35* 31* 48* - >60 >60 EGFRAFR - - - - - - 40* 36* 55* - - - - = values in this interval not displayed. @ Recent Labs Component Name 10/17/23 2117 10/17/23 1434 10/17/23 0811 10/17/23 0420 10/12/23 0508 09/10/17 0557 09/09/17 0841 09/09/17 0422 FIO2 - 30.0 40.0 40.0 - 40.0 100.0 100.0 PH 7.39 7.45 7.32* 7.32* - 7.45 7.51* 7.41 PCO2 57* 48* 61* 61* - 44 38 45 BE 7.8* 8.2* 3.8* 3.9* - 5.4* 5.7* 2.4* HCO3 - - - - - 30.0* 29.2* 27.4* PO2 135* 86 146* 110* - 80 274* 65* O2SAT 100 99 99 99 - - - - AHO7ATY 34.5* 33.4* 31.4* 31.4* - - - - - = values in this interval not displayed. Assessment/Plan: Acute hypercapnic respiratory failure: Patient is currently on BiPAP with an IPAP of 22 and EPAP of10 with 2L oxygen bled in., decrease pressure to 18/8 tonight. Significant improvement with resolution of respiratory acidosis but has chronic hypercapnia. On 1L NC during the day. Wean oxygen down to room air- keep saturation more than 90 percent Altered mental status: Resolved. Awake, responsive, able to answer questions. Presumed to be secondary to hypercapnic respiratory failure. CT Head without acute pathology. EEG ok. LFTT ok, Ammonia ok, on Rifaximin empirically, off Lactulose Bilateral pleural effusion with attendant atelectasis: CXR 10/17/2023 shows significant improvement with small let pleural effusion. Repeat CXR shows bibasilar atelectasis. Hypernatremia presumably secondary to diuresis. Na at 146. Patient off IV fluids. Nephrology is following Group G Streptococcus bacteremia per blood cultures at outside facility: Patient has completed Ceftriaxone , still on doxycycline. Id is following patient Excessive narcotic use during this hospitalization: Patient is now off Narcan drip Anasarca during the hospitalization: Echocardiogram showed EF of 45 percent, BNP remains elevated but patient is clinically less fluid overloaded. Diuretics are being held secondary to hypernatremia History of atrial fibrillation: Patient is on beta-fe and Eliquis Code status: Full * Jayme Rodriguez MD - 10/24/2023 4:38 PM CDT Internal Medicine Progress Note -Hospitalist Admit Date: 10/12/2023 4:19 AM Hospital Day: 12 Clinical Course: 72 independent living, history of AFib, CHF, VALENTINA on BiPAP at nighttime, COPD, CKD was admitted for sepsis and lower extremity cellulitis Started on IV antibiotics Course complicated by significant confusion requiring Neurology consultation. Also noted severe hypernatremia. NG was placed. 10/19 mentally better 10/20 NG was pulled out, passed swallow eval, oriented 10/21 feels better overall improving, can move out of IMCU 10/22 improved, now on room air 10/23 stable New Symptoms: Patient is lying in bed he still have some distention to his abdomen but no nausea or vomiting passing bowel movements and no tenderness on exam He still feeling very weak He denied any other acute issues Objective: Vitals: 10/24/23 0859 10/24/23 1200 10/24/23 1522 10/24/23 1557 BP: 146/84 138/82 Pulse: 86 80 85 Resp: Temp: 97.5 ??F (36.4 ??C) 97.9 ??F (36.6 ??C) SpO2: 98% 100% 99% 97% Weight: Height: General appearance: Awake responsive, able to communicate and ask the right questions Left pupil is bigger than right Heart: normal rate Lungs: breath sounds normal and symmetric; no rales or wheezes Abdomen: soft without mass, non-tender, with normal bowel sounds Extremities: no clubbing, cyanosis or edema, chronic venous insufficiency changes on bilateral calves. Left thigh is no longer red and tender. Intake/Output Summary (Last 24 hours) at 10/24/2023 1638 Last data filed at 10/24/2023 1316 Gross per 24 hour Intake 200 ml Output 750 ml Net -550 ml Current Medications: MEDICATIONS FOR CURRENT ENCOUNTER: SCHEDULED MEDICATIONS: albuterol-ipratropium (Duo-Neb) nebulizer solution 3 mL, Inhalation, q6h apixaban (Eliquis) tablet 5 mg, Oral, BID aspirin chew tablet 81 mg, Oral, QDAY docusate sodium (Colace) capsule 100 mg, Oral, BID doxycycline monohydrate capsule 100 mg, Oral, QDAY insulin aspart (NovoLOG) pen 0-12 Units, Subcutaneous, 4X/day - AC & HS lidocaine (Lidoderm) 5 % patch 1 patch, Transdermal, q24h metoprolol tartrate IR (Lopressor) tablet 25 mg, Oral, BID pantoprazole EC (Protonix) tablet 40 mg, Oral, QDAY rifAXIMin (Xifaxan) tablet 550 mg, Oral, BID senna-docusate (Senokot-S) tablet 1 tablet, Oral, QDAY venlafaxine (Effexor) tablet 37.5 mg, Oral, QDAY [COMPLETED] cefTRIAXone (Rocephin) 2,000 mg in 0.9% NaCl IV 50 mL IVPB, Intravenous, q24h [COMPLETED] potassium chloride ER (Klor-Con M) tablet 40 mEq, Oral, Once CONTINUOUS MEDICATIONS: 0.9% NaCl flush bag, Intravenous, CONTINUOUS PRN PRN MEDICATIONS: Or Or 0.9% NaCl flush bag, Intravenous, CONTINUOUS PRN acetaminophen (Tylenol) tablet 1,000 mg, Oral, q6h PRN bisacodyl (Dulcolax) suppository 10 mg, Rectal, QDAY PRN dextrose 10 % IV bolus, Intravenous, PRN dextrose 10 % IV bolus, Intravenous, PRN glucagon (Glucagen) injection 1 mg, Subcutaneous, PRN glucose (Diabetic Use) oral gel, Oral, PRN morphine injection 2 mg, Intravenous, q4h PRN ondansetron (Zofran) injection 4 mg, Intravenous, q4h PRN senna (Senokot) tablet 8.6 mg, Oral, BID PRN Data: Recent Labs Component Name 10/24/23 0517 10/23/23 0437 10/22/23 1532 SODIUM 144 142 141 POTASSIUM 3.6 3.6 3.4* BUN 22 23 26 CREATININE 1.29* 1.19 1.26* GLUCOSE 101 104 147* Recent Labs Component Name 10/24/23 0517 10/23/23 0437 10/22/23 0331 WBC 14.4* 15.2* 14.9* HGB 11.6* 11.6* 11.6* HCT 36.2* 37.0* 36.8* PLTCOUNT [address] FEMUR LEFT WO CONTRAST Result Date: 10/12/2023 IMPRESSION: There is a moderate cellulitis in the skin and subcutaneous soft tissues along the medial aspect of the left thigh. No gas is seen in the soft tissues. No drainable abscess collection is seen. No evidence for inflammatory change in the fascial planes of the left thigh. 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 > Interpreting Provider: Jose Alberto Kemp MD on 10/12/2023 11:59 AM XR CHEST 1VW PORTABLE Result Date: 10/12/2023 IMPRESSION: Tubes and lines in adequate position without a pneumothorax Oral and parenchymal changeat the left base slightly progressive in the interval > Interpreting Provider: Alberto Atwood MDon 10/12/2023 8:23 AM Assessment and Plan Optimize electrolyte Physical therapy Adding sent He will need rehabilitation reported a run of V-tach, 1. Altered mental status Please review previous notes Completely resolved 2. Septic shock presented on admission IV fluids, IV antibiotics and resolved Ceftriaxone 3. Left thigh cellulitis looks to be improving almost erythema has gone Continue with IV antibiotic CT scan showed no soft tissue gas and no abscess Surgery and Infectious Disease managing Continue IV antibiotics 4. Group G strep bacteremia Secondary to above Continue on ceftriaxone likely until 10/23 Noted chronic suppressive antibiotics at home. 5. Lactic acidosis resolved 6. Hypernatremia On D5 I will start free water flushes 300 q.4 hours and will repeat labs in the morning He looks to be much better 7. Difficulty swallowing Likely secondary to altered mental status. I am expecting that this will resolved will pull NG tube to do speech evaluation NG removed 10/20 started on diet 8. Acute on chronic kidney disease likely ATN in the settings of shock also received contrast Improving 9. Acute on chronic hypoxemic respiratory failure looks to be much better Extubated October 8 Currently on nasal cannula 10. History of COPD no wheezing 11. History of CHF monitor fluid status 12. History of atrial fibrillation on Eliquis and metoprolol 13. Michaud cirrhosis continue rifaximin will stop lactulose 14. Hypokalemia repleted 15. 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 DVT prophylaxis: Zayraqugorge Full Code Jayme Rodriguez MD 10/24/2023 4:38 PM Portions of this note may be dictated using voice recognition software. Variances in spelling and vocabulary are possible and unintentional. Not all errors are caught/corrected. Please notify the author if any discrepancies are noted or if the meaning of any statement is not clear. These grammatical oversights have no impact on the medical care provided to the patient. Time in which this note is created does not match the time of rounding/clinical exam. * Radha Malone MSW - 10/24/2023 4:12 PM CDT New Facility Referral Follow-up Level of Care (SNF/Medicaid NH/Rehab/Safety Lead Care/LTACH): snf requested should pt be unable to rtn hme once stable for discharge. This worker spke with pts. spouse Trinity Keys @ [phone], last week,,and below [facility]/ [facility]/ [facility] per spouse requestedif new snf needed @ time of discharge. Fac has an [employer] contract.Fac willing to review for possible admit. Ss updated fac pt is not yet stable for discharge currently remains in the ICU. MD's following for medical stability. Ss will continue to send updates for fac review. Rtn call rcd from Moni with [facility]/ [facility] admissions, ss explained pt is NOT yet ready for discharge updates will be sent daily and when closer to discharge will then need final answer.Fac was asked to please continue to follow for possible admit and they plan to follow. Assist appreciated. Additional info to follow/ updates will be sent daily.- updates sent again today 10/23 Referrals initiated: Continued Care and Services - Admitted Since 10/12/2023 Destination Service Provider Request Status Selected Services Address Phone Fax Patient Preferred [facility] Pending - Request Sent N/A [id number] [facility], [facility] [id number] -- If Medicare-3 day qualifying stay verified: pt has [employer] and will need an Auth to transfer to any snf. [facility] to obtain snf Auth if to snf once fac with approval with an available bed. See note for all Auth updates if pt to snf @ time of discharge. monitoring facility responses Comments/changes:if to snf nrsg to please send fac orders,chart and discharge summary. Name: CHRIS Garcia Phone: [phone] * Beata Encarnacion - 10/24/2023 3:20 PM CDT CLINICAL SWALLOW EVALUATION Speech Pathology: Order received and chart reviewed. Clinical Dysphagia Evaluation completed. Please refer to Clinical Swallow Study doc flowsheet for full results. José Miguel Keys is a 72 year old male, admitted for admitted to facility 07/08 to sepsis of unknown origin. SOB with an increased cough and sputum production, left leg pain and rash. Pt intubated on extubated same day. Past medical history includes: Past Medical History: Diagnosis Date Actinic keratosis Arthritis Asthma (HCC) Atrial fibrillation, chronic (HCC) Basal cell carcinoma CAD (coronary artery disease) Clotting disorder (HCC) Colitis COPD (chronic obstructive pulmonary disease) (HCC) Diabetes (HCC) DVT (deep venous thrombosis) (HCC) Dyslipidemia Eczema GERD (gastroesophageal reflux disease) Heart attack (HCC) High blood pressure Hx of blood clots Keloid Kidney disease Lentigo maligna melanoma (HCC) MRSA (methicillin resistant staph aureus) culture positive 07/29/2017; 02/04/19; 04/29/2019 07/29/17-Disc- tissue culture MRSA; R hip; nasal swab+ Obstructive sleep apnea VALENTINA (obstructive sleep apnea) Other cirrhosis of liver (HCC) Peripheral neuropathy Psoriasis S/P PICC central line placement 02/13/2019 [facility] VAT R basilic Seizures (HCC) Squamous cell carcinoma VRE (vancomycin resistant enterococcus) culture positive 04/29/2019 rectal swab+ Pertinent History: No history of ST services documented in [facility] or care everywhere. This Admission: 10/16/2023: Clinical bedside swallowing evaluation completed with recommendations for strict NPO. 10/19/2023: Ice chip protocol initiated. 10/21/2023: Modified barium swallow study (MBS) completed with the following results: Impairments of the oral and pharyngeal stage of the swallow resulted in single episode of transient penetration with thin liquid. This is considered within functional limits. No penetration observed with mildly-thick liquid, moderately-thick liquid, puree, solid. No aspiration identified during today's study. Overall, the pt presents with moderate oral dysphagia (worsened by lack of dentition), mild pharyngealdysphagia. He is at mild risk for aspiration 2/2 mentation and dysphagia. Recommend initiating a minced & moist (5) diet and thin (0) liquids with medication administered whole or crushed with puree. Recommend 1:[address] will continue to follow. 10/22/2023: Advanced diet to easy to chew (EC7) solids and continued thin (0) liquids. Vitals: Date: 10/24/2023 WBC: 14.4 Temp: Temp: 97.9 ??F (36.6 ??C) O2: O2 L/M: 2 $ O2 DEVICE: Nasal Cannula $ Lung Sounds: General Anterior Breath Sounds: DiminishedRespiratory (WDL): Exceptions to WDL Imaging: CXR: 10/23: Exam with reduced sensitivity. Tube(s) and/or line(s) appear without apparent complicatioTube(s) and/or line(s) appear without apparent complication. Improving minor retrocardiac opacity with small left pleural effusion. No overt cardiogenic edema S: Pt sitting upright in bed. Pt A&O x4. Pt stated he was having difficulty breathing, however oxygen levels were typical. RN was informed and RT was at bedside upon ST departure. O: Pt was observed with trials of thin liquid via a straw and solid trials. Oral phase revealed adequate labial seal around straw and with mastication of solid. Residue present on lingual surface after completion of swallow. This could also be related to xerostomia. Pt was able to clear dry solid with consecutive drinks of thin liquid. No overt clinical signs of aspiration observed across consistencies assessed. Recommend continuing easy to chew (EC7) diet and continuing thin (0) liquids. Recommend medication whole with liquid or in puree as tolerated by pt. Recommend continuing swallowing strategies during mealtime. Patient/Caregiver goals: None stated. Assessment: Primary Diagnostic Impression - Oral: Mild;Dysphagia Primary Diagnostic Impression - Pharyngeal: Mild;Dysphagia Risk For Aspiration: Mild AMBRIZ Assessment: MASA Score: 180 Dysphagia Severity Level: Nil abnormality detected (178 - 200) Risk for Aspiration: Nil abnormality detected (170 - 200) Risk of aspiration is reduced with the use of diet modification/compensatory strategies. Recommend: Diet Solids Recommendation: Easy to Chew (EC7)/Mechanical Soft Diet Liquids Recommendation: Thin/ Thin (0) Recommended Form of Meds: Whole;With liquid;With puree;As Tolerated Risk For Aspiration: Mild Strategies Include: Compensatory Swallowing Strategies: 90 Degrees elevation for all oral intake;Small bites/sips;Eat/Feed slowly Results discussed with: Results discussed with:: Patient;Nursing Comments: Comments: NPO; with 2-3 ice chips every hour Follow Up: Recommendations: Other (comments) Follow Up: No further speech therapy warranted at this time. Please re-refer if patient's status changes. PPE: PPE worn by staff: gloves If this is the last Speech Therapy visit, this serves as the discharge summary. Thank you for this referral. Corinna Cota LOCKER ATTENDANT student 10/24/2023 4:19 PM * Sarahi Pena RCP - 10/24/2023 12:11 PM CDT Problem: Ineffective Airway Clearance Goal: Patent airway Outcome: Progressing RT will encourage José Miguel to slow deep breathe and cough to maintain a patent airway. Sarahi Pena RCP 10/24/2023 12:11 PM * Lucía Castaneda, DO - 10/24/2023 10:08 AM CDT Images from the original note were not included. Infectious Diseases Progress Note José Miguel Keys 10/13/2023 Hospital Day 12 Subjective Awake but appears tired Left thigh pain and erythema improved afebrile Abx Ceftriaxone 10/12- Clindamycin 10/11-10/17 Vanc 10/11-10/13 Flagyl 10/11-10/12 Cefepime 10/11 Exam BP 159/92 (BP Location: Left arm, Patient Position: Lying) Pulse 86 Temp 97.7 ??F (36.5 ??C) (Oral) Resp 20 Ht 1.803 m (5' 10.98 ) Wt 111.1 kg (245 lb) SpO2 98% BMI 34.19 kg/m?? General: NAD, fatigued Neuro: alert, responds appropriately Lungs: non-labored on NC, diminished at bases CV: normal rate, regular Abd: abdominal distension improved Ext: Left thigh and leg less redness. Wrinkles present to thigh. Mild ttp. No induration. R IJ CVC 10/10-10/13 Data Recent Labs Component Name 10/24/2351610/23/2343610/22/23 0331 WBC 14.4* 15.2* 14.9* HGB 11.6* 11.6* 11.6* HCT 36.2* 37.0* 36.8* PLTCOUNT 171 167 164 Recent Labs Component Name 10/24/2351610/23/2343610/22/23 1532 SODIUM 144 142 141 POTASSIUM 3.6 3.6 3.4* CHLORIDE 115* 114* 113* CO2 21* 22 21* BUN 22 23 26 CREATININE 1.29* 1.19 1.26* GLUCOSE 101 104 147* CALCIUM 8.8 8.2* 8.3* Recent Labs Component Name 10/24/2351610/23/2343610/22/23 0331 10/20/23 0353 10/19/23 0336 10/18/23 0745 10/17/23 1421 10/17/23 0336 ALBUMIN 2.4* 2.3* 2.4* - 2.5* 2.5* - 2.5* ALKPHOS - - - - 80 81 - 73 ALT - - - - 38 45 - 53 AST - - - - 31 32 - 57* TBIL - - - - 0.8 1.1 - 0.5 TPROT - - - - 6.8 6.8 - 7.1 - = values in this interval not displayed. Microbiology Blood culture 10/10 Dandre Group G Strep (R clinda) 10/11 negative Radiology 10/10 CXR: Mild interstitial edema vs senescent change 10/10 Venous Doppler LLE: No DVT 10/10 CTA Chest: Distended gallbladder, cholelithiasis. No PE 10/10 CT A/P wo: stone in gallbladder neck. L1-2 fusion. Mild peripancreatic inflammatory changes 10/11 CT LLE wo: There is a moderate cellulitis in the skin and subcutaneous soft tissues along the medial aspect of the left thigh. No gas is seen in the soft tissues. No drainable abscess collection is seen. No evidence for inflammatory change in the fascial planes of the left thigh. 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 10/15 CT C/A/P wo: Moderate bilateral loculated pleural effusions. Slightly nodular [...] blood products given an adjacent soft tissue contusioninjury in the left lateral soft tissues and a mildly displaced left posterior 11th rib fracture. Nofree air identified. Subtle hazy stranding in the upper abdominal mesentery which could reflect posttraumatic changes/mesenteric injury or mesenteritis. This is in proximity of the pancreas however is felt less likely reflect pancreatitis. Recommend correlation with patient history and lipase. Diffuse bladder wall thickening which could be seen in the setting of cystitis. Recommend correlation with urinalysis. KUB 10/21 MEDICATIONS FOR CURRENT ENCOUNTER: SCHEDULED MEDICATIONS: albuterol-ipratropium (Duo-Neb) nebulizer solution 3 mL, Inhalation, q6h apixaban (Eliquis) tablet 5 mg, Oral, BID aspirin chew tablet 81 mg, Oral, QDAY docusate sodium (Colace) capsule 100 mg, Oral, BID doxycycline monohydrate capsule 100 mg, Oral, QDAY insulin aspart (NovoLOG) pen 0-12 Units, Subcutaneous, 4X/day - AC & HS lidocaine (Lidoderm) 5 % patch 1 patch, Transdermal, q24h metoprolol tartrate IR (Lopressor) tablet 25 mg, Oral, BID pantoprazole EC (Protonix) tablet 40 mg, Oral, QDAY rifAXIMin (Xifaxan) tablet 550 mg, Oral, BID senna-docusate (Senokot-S) tablet 1 tablet, Oral, QDAY venlafaxine (Effexor) tablet 37.5 mg, Oral, QDAY [COMPLETED] cefTRIAXone (Rocephin) 2,000 mg in 0.9% NaCl IV 50 mL IVPB, Intravenous, q24h [COMPLETED] potassium chloride ER (Klor-Con M) tablet 40 mEq, Oral, Once CONTINUOUS MEDICATIONS: 0.9% NaCl flush bag, Intravenous, CONTINUOUS PRN PRN MEDICATIONS: Or Or 0.9% NaCl flush bag, Intravenous, CONTINUOUS PRN acetaminophen (Tylenol) tablet 1,000 mg, Oral, q6h PRN bisacodyl (Dulcolax) suppository 10 mg, Rectal, QDAY PRN dextrose 10 % IV bolus, Intravenous, PRN dextrose 10 % IV bolus, Intravenous, PRN glucagon (Glucagen) injection 1 mg, Subcutaneous, PRN glucose (Diabetic Use) oral gel, Oral, PRN morphine injection 2 mg, Intravenous, q4h PRN ondansetron (Zofran) injection 4 mg, Intravenous, q4h PRN senna (Senokot) tablet 8.6 mg, Oral, BID PRN Assessment --Group G strep septicemia with septic shock, concern for left thigh nec fasc or cellulitis with myositis and Streptococcal toxic shock syndrome CK and CRP not majorly elevated, CK seems to have peaked Weaned off pressors IVIG 10/11-10/12 CT WITHOUT contrast without evidence for gas 10/11 and 10/14. Surgery evaluated and both times recommended no surgery CT C/A/P non-specific peripancreatic finding was also reported on outside initial CT and his lipasewas normal on admit. Liver enzymes not consistent with a hepatobiliary process. Pleural effusion likely from volume state I do not think there is an additional process for how sick he is. I think this was streptococcal toxic shock from left leg in a cirrhosis patient that developed RADHA. His leg does not currently look great but in several ways it looks better than the first 3 days of admission. He is going to have a very slow recovery. CRP about 60% better over the one week since admission. 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 [id number], on chronic suppressive doxycycline 100mg Afib, hx of DVT on eliquis BPH on flomax RADHA on CKD, improved MICHAUD and cirrhosis with small lower esophageal varices on 2022 EGD, portal hypertensive gastropathy Hx of PUD with bleeding COPD Obesity, BMI 34 Plan Complete ceftriaxone today for Group G strep infection Resume chronic doxycycline 100mg daily ppx as per prior ID plan monitor if able to tolerate po * Monisha Emanuel), DONTAE Benavides - 10/24/2023 9:42 AM CDT Care Coordination Progress Note Anticipated level of care at discharge: Care Home - Skilled Facility, Home Health Care Comment: see progress sect for all snf referrals made: Anticipated level of care provider: None: Anticipated Discharge Date: 10/28/23: Discharge Plan: at this time plan is to SNF near [place], [place]. Please see SW notes for further discharge details Orientation Level: Oriented X4: Family Support (Name and Phone): Extended Emergency Contact Information Primary Emergency Contact: Trinity Keys Address: [address] [place] [address] [place] [address] [place] Relation: Spouse City Manager needed? No Transportation at Discharge: Ambulance: READMISSION RISK SCORE is 15 at 9:42 AM 10/24/2023.: Name: Makayla Echavarria RN * Tamara Bauman MD - 10/24/2023 8:35 AM CDT Images from the original note were not included. Nephrology Progress Note Admit Date: 10/12/2023 4:19 AM Hospital Day: 12 Assessment: Acute kidney injury - ATN secondary shock status and hypotension + ELLIOTT - SCr 2.9 mg/dL on 10/12 - SCr 1.8 mg/dL 08/2022 - SCr baseline 1.5 mg/dL since 2019 Hyperkalemia Metabolic acidosis Sepsis Possible lower extremity cellulitis Shock status-possibly sepsis Acute hypoxic respiratory failure COPD Hx AFib Hx CHF Hx cirrhosis secondary to MICHAUD Full Code *PCP is Provider Unknown* Recommendations: Azotemia stable Replaced K Na improved Capped IVF Holding Lasix for now Maintain Cabral catheter Checked urine indices Antibiotics per ID Gabapentin held Avoid MAP < 65 Avoid further IV contrast and NSAIDs Will sign off daily visits and continue to monitor labs through Tuesday. Feel free to reach out withany questions. Reason for Consult Acute kidney injury Clinical Course 10/12/2023: Admitted 10/12: Renal consult 10/13: Urine output 760 cc in last 24 hours. Off pressors. On low-rate LR 10/14: Somnolent. Cabral removed early this morning. 10/15: Cabral replaced due to continued urinary retention. 10/16: TONGUE [employer]AR[employer]ITCHER called overnight due to AMS. Given narcan, placed on BiPAP, transferred to step down for closer monitoring. Remains on narcan drip this morning. 10/17: remains lethargic. 10/18: More awake today, though still confused 10/19: More awake and interactive. 10/20: Awake and conversant, less confused. 10/21: ICU; resting in bed 10/22: 4C; up in bed 10/23: 4C; resting in bed. More awake and interactive. New Symptoms No new complaints. Says he feels okay. Exam Gen: awake, cooperative, NAD Heart: regular rhythm, S1S2, without rub Lungs: breath sounds diminished B; no wheezes or crackles; no distress at rest on oxygen via NC Abd: soft without mass, non-tender, with bowel sounds, FMS Ext: no cyanosis, trace edema, heel protectors : Cabral absent Data Vitals: 10/24/23 0350 10/24/23 0423 10/24/23 0722 10/24/23 0859 BP: 144/74 159/92 Pulse: 86 85 86 Resp: Temp: 97.4 ??F (36.3 ??C) 97.7 ??F (36.5 ??C) SpO2: 96% 100% 100% 98% Weight: Height: Supplemental Oxygen (last filed value): O2 L/M: 2 (10/24/23 0859) Temp (30hrs) Max:98.4 ??F (36.9 ??C) Intake/Output Summary (Last 24 hours) at 10/24/2023 1115 Last data filed at 10/24/2023 0950 Gross per 24 hour Intake 560 ml Output 1050 ml Net -490 ml Admission weight: Weight: 111.1 kg (244 lb 14.9 oz) (10/12/23 0507) Most recent weight: Weight: 111.1 kg (245 lb) (10/14/23 0643) Recent Labs Component Name 10/24/23 0517 10/23/23 0437 10/22/23 1532 10/22/23 0331 SODIUM 144 142 141 144 POTASSIUM 3.6 3.6 3.4* 3.0* CHLORIDE 115* 114* 113* 115* CO2 21* 22 21* 23 BUN 22 23 26 29* CREATININE 1.29* 1.19 1.26* 1.27* GLUCOSE 101 104 147* 118* CALCIUM 8.8 8.2* 8.3* 8.2* ALBUMIN 2.4* 2.3* - 2.4* PHOS 2.4 2.8 - 2.2* Recent Labs Component Name 10/24/23 0517 10/23/23 0437 10/22/23 1532 EGFR 58* 64* 60* Recent Labs Component Name 10/24/23 0517 10/23/23 0437 10/22/23 0331 MAGNESIUM 1.8 1.8 1.9 Recent Labs Component Name 10/24/23 0517 10/23/23 0437 10/22/23 0331 WBC 14.4* 15.2* 14.9* HGB 11.6* 11.6* 11.6* HCT 36.2* 37.0* 36.8* PLTCOUNT 171 167 164 Recent Labs Component Name 10/15/23 0444 10/14/23 0337 10/13/23 1153 CK 440* 786* 905* Recent Labs Component Name 10/13/23 1424 COLORUA Celia* CLARITYUA Cloudy* SPECGRAVUA 1.028 PHUA 5.0 PROTEINUA 2+* BLOODUA 3+* LEUKOCYTEUA 2+* NITRITEUA Negative GLUCOSEUA Negative KETONEUA Negative BILIRUBINUA Negative UROBILINUA Negative WBCUA >100* RBCUA >100* BACTUA None Seen Recent Labs Component Name 10/13/23 1424 09/01/17 0016 07/15/17 2358 07/15/17 0018 SODIUMUR <20 - - - POTASSIUMUR 69.3 - - - CHLORIDEUR <20.0 - - - CREATININEUR - 89 83 66 MEDICATIONS FOR CURRENT ENCOUNTER: SCHEDULED MEDICATIONS: albuterol-ipratropium (Duo-Neb) nebulizer solution 3 mL, Inhalation, q6h apixaban (Eliquis) tablet 5 mg, Oral, BID aspirin chew tablet 81 mg, Oral, QDAY docusate sodium (Colace) capsule 100 mg, Oral, BID doxycycline monohydrate capsule 100 mg, Oral, QDAY insulin aspart (NovoLOG) pen 0-12 Units, Subcutaneous, 4X/day - AC & HS lidocaine (Lidoderm) 5 % patch 1 patch, Transdermal, q24h metoprolol tartrate IR (Lopressor) tablet 25 mg, Oral, BID pantoprazole EC (Protonix) tablet 40 mg, Oral, QDAY rifAXIMin (Xifaxan) tablet 550 mg, Oral, BID senna-docusate (Senokot-S) tablet 1 tablet, Oral, QDAY venlafaxine (Effexor) tablet 37.5 mg, Oral, QDAY [COMPLETED] cefTRIAXone (Rocephin) 2,000 mg in 0.9% NaCl IV 50 mL IVPB, Intravenous, q24h [COMPLETED] potassium chloride ER (Klor-Con M) tablet 40 mEq, Oral, Once CONTINUOUS MEDICATIONS: 0.9% NaCl flush bag, Intravenous, CONTINUOUS PRN PRN MEDICATIONS: Or Or 0.9% NaCl flush bag, Intravenous, CONTINUOUS PRN acetaminophen (Tylenol) tablet 1,000 mg, Oral, q6h PRN bisacodyl (Dulcolax) suppository 10 mg, Rectal, QDAY PRN dextrose 10 % IV bolus, Intravenous, PRN dextrose 10 % IV bolus, Intravenous, PRN glucagon (Glucagen) injection 1 mg, Subcutaneous, PRN glucose (Diabetic Use) oral gel, Oral, PRN morphine injection 2 mg, Intravenous, q4h PRN ondansetron (Zofran) injection 4 mg, Intravenous, q4h PRN senna (Senokot) tablet 8.6 mg, Oral, BID PRN * Tiffany Fortune MD - 10/24/2023 8:09 AM CDT Admit Date: 10/12/2023 4:19 AM Hospital Day: 12 Follow Up Acute respiratory failure, AMS New Symptoms Patient still lethargic but follows commands . Patient is much more awake, less confused, and oriented to time and place Data Vitals: 10/23/23 2338 10/24/23 0337 10/24/23 0350 10/24/23 0423 BP: 168/95 144/74 Pulse: 88 80 86 Resp: 18 22 21 Temp: 98.4 ??F (36.9 ??C) 97.4 ??F (36.3 ??C) SpO2: 100% 96% 96% 100% Weight: Height: Temp (30hrs) Max:98.6 ??F (37 ??C) Intake/Output Summary (Last 24 hours) at 10/24/2023 0809 Last data filed at 10/24/2023 0427 Gross per 24 hour Intake 480 ml Output 1050 ml Net -570 ml Medications have been reviewed Exam General appearance: a no distress HEENT: Grossly unremarkable Heart: regular rhythm, normal S1 and S2, Lungs: breath sounds clear Abdomen: soft Extremities: + edema Neuro: No focal deficits. Recent Labs Component Name 10/24/23 0517 10/23/23 0437 10/22/23 0331 WBC 14.4* 15.2* 14.9* HGB 11.6* 11.6* 11.6* HCT 36.2* 37.0* 36.8* PLTCOUNT 171 167 164 Recent Labs Component Name 10/24/23 0517 10/23/23 0437 10/22/23 1532 03/08/23 1347 08/23/22 2024 02/09/22 0921 08/03/21 1025 01/09/21 1055 09/05/20 1325 02/03/19 0106 09/19/17 0243 09/18/17 0003 SODIUM 144 142 141 - - - 139 137 140 - - - NA - - - - 141 - - - - - 138 140 POTASSIUM 3.6 3.6 3.4* - 4.6* - 4.7 4.4 4.2 - 4.9* 3.4* CHLORIDE 115* 114* 113* - - - 102 102 103 - - - CO2 21* 22 21* - 26 - 27 26 28 - 34* 35* BUN 22 23 26 - 26 - 41* 50* 27* - 26 25 CREATININE 1.29* 1.19 1.26* - 1.60* - 1.89* 2.07* 1.46* - 0.6 0.6 GLUCOSE 101 104 147* - 113 - 124* 144* 109* - 153* 135* CALCIUM 8.8 8.2* 8.3* - 10.3* - 9.6 9.7 9.9 - 9.1 9.0 EGFR 58* 64* 60* - 45* - 35* 31* 48* - >60 >60 EGFRAFR - - - - - - 40* 36* 55* - - - - = values in this interval not displayed. @ Recent Labs Component Name 10/17/23 2117 10/17/23 1434 10/17/23 0811 10/17/23 0420 10/12/23 0508 09/10/17 0557 09/09/17 0841 09/09/17 0422 FIO2 - 30.0 40.0 40.0 - 40.0 100.0 100.0 PH 7.39 7.45 7.32* 7.32* - 7.45 7.51* 7.41 PCO2 57* 48* 61* 61* - 44 38 45 BE 7.8* 8.2* 3.8* 3.9* - 5.4* 5.7* 2.4* HCO3 - - - - - 30.0* 29.2* 27.4* PO2 135* 86 146* 110* - 80 274* 65* O2SAT 100 99 99 99 - - - - [id number] 34.5* 33.4* 31.4* 31.4* - - - - - = values in this interval not displayed. Assessment/Plan: Acute hypercapnic respiratory failure: Patient is currently on BiPAP with an IPAP of 30 and EPAP of14 with 40 percent oxygen bled in. Significant improvement with resolution of respiratory acidosis but has chronic hypercapnia. Patient was not tolerating the high pressure, will adjust IPAP to 22, and EPAP to 10 and follow. Continue BIPAP at HS for now and NC during the day as tolerated. Wean oxygen down to room air-keep saturation more than 90 percent Altered mental status: Resolved. Awake, responsive, able to answer questions. Presumed to be secondary to hypercapnic respiratory failure. CT Head without acute pathology. EEG ok. LFTT ok, Ammonia ok, on Rifaximin empirically, off Lactulose Bilateral pleural effusion with attendant atelectasis: CXR 10/17/2023 shows significant improvement with small let pleural effusion. Repeat CXR shows bibasilar atelectasis. Hypernatremia presumably secondary to diuresis. Na at 144. Patient off IV fluids. Nephrology is following Group G Streptococcus bacteremia per blood cultures at outside facility: Patient is currently on ceftriaxone day 12, and doxycycline. Id is following patient Excessive narcotic use during this hospitalization: Patient is now off Narcan drip Anasarca during the hospitalization: Echocardiogram showed EF of 45 percent, BNP remains elevated but patient is clinically less fluid overloaded. Diuretics are being held secondary to hypernatremia History of atrial fibrillation: Patient is on beta-fe and Eliquis Code status: Full * Yanira Macias MD - 10/24/2023 8:09 AM CDT Neurology Progress Note Patient Name José Miguel Keys Days of Admission: 12 Reason for Visit Mental status changes Clinical Course/New Symptoms Patient is a 72 year old male with a history of atrial fibrillation, on Eliquis,CHF, COPD, CKD, coronary artery disease, diabetes,previous DVT, VALENTINA on BiPAP at night who was transferred to our facility secondary to sepsis/ left thigh cellulitis. Rapid response called 10/16/2023 due to increased respiratory distress and mental status changes. 0.4mg narcan given as total of 60mg oxycodone has been given during the last 24 hours. ABG obtained. PH 7.31, CO2 61, HCO3 30.7. CT brain did not show acuteprocess. Awake and follows commands No new complains Data Reviewed CT brain without acute process Ammonia level 26 EEG without discharges Objective Patient Vitals for the past 24 hrs: Temp Pulse Resp BP SpO2 10/24/23 0423 97.4 ??F (36.3 ??C) 86 21 144/74 100 % 10/24/23 0350 -- -- -- -- 96 % 10/24/23 0337 -- 80 22 -- 96 % 10/23/23 2338 98.4 ??F (36.9 ??C) 88 18 168/95 100 % 10/23/23 2300 -- 78 -- -- 99 % 10/23/23 2120 -- 78 20 -- 97 % 10/23/23 1946 97.6 ??F (36.4 ??C) 81 20 154/89 99 % 10/23/23 1627 98.2 ??F (36.8 ??C) 94 18 130/67 94 % 10/23/23 1511 -- 70 18 -- 93 % 10/23/23 1250 -- -- -- -- 93 % 10/23/23 1216 98 ??F (36.7 ??C) 84 18 125/73 92 % 10/23/23 1133 -- 89 16 -- 91 % Labs: Recent Labs Component Name 10/24/23 0510/23/23 0437 10/22/23 0331 WBC 14.4* 15.2* 14.9* HGB 11.6* 11.6* 11.6* HCT 36.2* 37.0* 36.8* PLTCOUNT 171 167 164 Recent Labs Component Name 10/24/23 0517 10/23/23 0437 10/22/23 1532 10/22/23 0331 10/19/23 1639 10/19/23 0336 10/18/23 0745 10/17/23 1421 10/17/23 0336 SODIUM 144 142 141 144 - 156* 153* - 146* POTASSIUM 3.6 3.6 3.4* 3.0* - 3.3* 3.7 - 5.6* CHLORIDE 115* 114* 113* 115* - 120* 113* - 115* CO2 21* 22 21* 23 - 27 28 - 20* BUN 22 23 26 29* - 63* 81* - 89* CREATININE 1.29* 1.19 1.26* 1.27* - 1.83* 2.34* - 2.51* GLUCOSE 101 104 147* 118* - 120* 152* - 107* CALCIUM 8.8 8.2* 8.3* 8.2* - 9.3 9.5 - 9.0 ALBUMIN 2.4* 2.3* - 2.4* - 2.5* 2.5* - 2.5* ALKPHOS - - - - - 80 81 - 73 ALT - - - - - 38 45 - 53 AST - - - - - 31 32 - 57* TBIL - - - - - 0.8 1.1 - 0.5 TPROT - - - - - 6.8 6.8 - 7.1 EGFR 58* 64* 60* 59* - 38* 28* - 26* - = values in this interval not displayed. Recent Labs Component Name 08/20/20 0000 CHOL 150 TRIG 73 HDL 45 Recent Labs Component Name 10/12/23 0503 03/08/23 1349 08/10/22 1259 INR 1.2* 1.0 1.1 I have reviewed chart and the pertinent images and studies are personally reviewed Past Medical History: Diagnosis Date Actinic keratosis Arthritis Asthma (HCC) Atrial fibrillation, chronic (HCC) Basal cell carcinoma CAD (coronary artery disease) Clotting disorder (HCC) Colitis COPD (chronic obstructive pulmonary disease) (HCC) Diabetes (HCC) DVT (deep venous thrombosis) (HCC) Dyslipidemia Eczema GERD (gastroesophageal reflux disease) Heart attack (HCC) High blood pressure Hx of blood clots Keloid Kidney disease Lentigo maligna melanoma (HCC) MRSA (methicillin resistant staph aureus) culture positive 07/29/2017; 02/04/19; 04/29/2019 07/29/17-Disc- tissue culture MRSA; R hip; nasal swab+ Obstructive sleep apnea VALENTINA (obstructive sleep apnea) Other cirrhosis of liver (HCC) Peripheral neuropathy Psoriasis S/P PICC central line placement 02/13/2019 [facility] VAT R basilic Seizures (HCC) Squamous cell carcinoma VRE (vancomycin resistant enterococcus) culture positive 04/29/2019 rectal swab+ 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 Tobramycin Eye Itching red around the eyes, puffy, itchy Family History Problem Relation Name Age of Onset CAD (Coronary Artery Disease) Mother age 65 Cirrhosis Father Cancer - Breast Neg Hx CVA Neg Hx Hemophilia Neg Hx Cancer - Other Neg Hx Eczema Neg Hx Psoriasis Neg Hx Cancer - Skin, Non Melanoma Neg Hx Cancer - Skin, Melanoma Neg Hx Social History Socioeconomic History Marital status: Spouse name: Not on file Number of children: Not on file Years of education: Not on file Highest education level: Not on file Occupational History Not on file Tobacco Use Smoking status: Former Types: Cigarettes Quit date: 06/06/1981 Years since quittin.4 Smokeless tobacco: Never Vaping Use Vaping Use: Never used Substance and Sexual Activity Alcohol use: No Drug use: No Sexual activity: Not on file Other Topics Concern Not on file Social History Narrative Merged History Encounter [place] war Social Determinants of Health Financial Resource Strain: Low Risk (10/14/2023) Overall Financial Resource Strain (CARDIA) Difficulty of Paying Living Expenses: Not hard at all Food Insecurity: No Food Insecurity (10/14/2023) Hunger Vital Sign Worried About Running Out of Food in the Last Year: Never true Ran Out of Food in the Last Year: Never true Transportation Needs: No Transportation Needs (10/14/2023) PRAPARE - Transportation Lack of Transportation (Medical): No Lack of Transportation (Non-Medical): No Stress: No Stress Concern Present (10/14/2023) [employer] - Occupational Stress Questionnaire Feeling of Stress : Only a little Housing Stability: Low Risk (10/14/2023) Housing Stability Vital Sign Unable to Pay for Housing in the Last Year: No Number of Places Lived in the Last Year: 1 Unstable Housing in the Last Year: No MEDICATIONS FOR CURRENT ENCOUNTER: SCHEDULED MEDICATIONS: albuterol-ipratropium (Duo-Neb) nebulizer solution 3 mL, Inhalation, q6h apixaban (Eliquis) tablet 5 mg, Oral, BID aspirin chew tablet 81 mg, Oral, QDAY cefTRIAXone (Rocephin) 2,000 mg in 0.9% NaCl IV 50 mL IVPB, Intravenous, q24h docusate sodium (Colace) capsule 100 mg, Oral, BID doxycycline monohydrate capsule 100 mg, Oral, QDAY insulin aspart (NovoLOG) pen 0-12 Units, Subcutaneous, 4X/day - AC & HS lidocaine (Lidoderm) 5 % patch 1 patch, Transdermal, q24h metoprolol tartrate IR (Lopressor) tablet 25 mg, Oral, BID pantoprazole EC (Protonix) tablet 40 mg, Oral, QDAY rifAXIMin (Xifaxan) tablet 550 mg, Oral, BID senna-docusate (Senokot-S) tablet 1 tablet, Oral, QDAY venlafaxine (Effexor) tablet 37.5 mg, Oral, QDAY CONTINUOUS MEDICATIONS: 0.9% NaCl flush bag, Intravenous, CONTINUOUS PRN PRN MEDICATIONS: Or Or 0.9% NaCl flush bag, Intravenous, CONTINUOUS PRN acetaminophen (Tylenol) tablet 1,000 mg, Oral, q6h PRN bisacodyl (Dulcolax) suppository 10 mg, Rectal, QDAY PRN dextrose 10 % IV bolus, Intravenous, PRN dextrose 10 % IV bolus, Intravenous, PRN glucagon (Glucagen) injection 1 mg, Subcutaneous, PRN glucose (Diabetic Use) oral gel, Oral, PRN morphine injection 2 mg, Intravenous, q4h PRN ondansetron (Zofran) injection 4 mg, Intravenous, q4h PRN senna (Senokot) tablet 8.6 mg, Oral, BID PRN Physical Exam General appearance: well developed, in no apparent distress Head: Atraumatic, no obvious abnormality Neck: Normal carotid pulses, no bruits CVS: S1 S2 heard. No murmurs or gallop heard. Resp: Air entry is equal bilaterally without evidence of crackles or rhonchi. Abd: Non tender, non distended and no evidence of organomegaly. Ext: Distal pulses are preserved, no edema Psychiatric: no depression, no anxiety Skin: No rashes, no change of color Neuro Exam: Mental Status: More awake, follows simple commands Speech: has BiPAP on, nonverbal Cranial Nerves: 1. (Cranial Nr 2) Fundii - Not able to test, pupil reactive to light 2. (Cranial Nr 3,4,6) Extra Ocular Movements - Intact 3. (Cranial Nr 5) Facial sensation - Equal Bilaterally 4. (Cranial Nr 7) Facial expression - No Facial Asymmetry 5. (Cranial Nr 8) Hearing - Intact to conversation and finger rub 6. (Cranial Nr 9, 10) Voice - No change in quality or pitch Palate - Elevates equally Gag - Present 7. (Cranial Nr 11) Elevate shoulder - Bilaterally without paralysis 8. (Cranial Nr 12) Tongue - No deviation or wasting Motor: Has spontaneous movements in all extremities Sensation: withdrawal to pain Reflexes: DTRs Symmetric 1+ with plantar responses both sides Coordination/Cerebellar: not able to test Gait: not tested. Assessment: 1. Mental status changes Suspect metabolic encephalopathy secondary to infection and respiratory distress Neurologically would like to rule out nonconvulsive seizure and embolic strokes, but both diagnosesare less likely CT brain without acute process 2. Septic shock Left thigh cellulitis Group G strep bacteremia 3. 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 RADHA on CKD 5. History of MICHAUD liver cirrhosis 6. COPD Plan: 1. EEG reviewed without discharges 2. Continue Eliquis and low dose of ASA 3. Pulmonology follows 4. On Ceftriaxone and Doxycycline 5. Ammonia level checked which is normal S/p Lactulose 6. Hold off MRI brain since mental status has been better 7. Follow up with exam Yanira Macias MD * Nora Raza [facility] - 10/24/2023 3:51 AM CDT José Miguel wore the bipap for most of the night, he complained of shortness of breath at 0300 because of the high settings. * Nora Raza RCP - 10/23/2023 9:23 PM CDT Problem: Impaired Gas Exchange Goal: Resp rate/effort will be within specified limits Description: To maintain oxygen within normal parameters. RT to monitor. Flowsheets (Taken 10/23/20232119) Resp: 20 SpO2: 97 % Note: José Miguel is currently on room air spo2 within normal limits. He is getting Q6 duonebs and will wear the Bipap tonight * Alvino Goddard MD - 10/23/2023 9:02 PM CDT Pulmonary Progress Note José Miguel Keys 72 year old 1950 Admit Date: 10/12/2023 4:19 AM Hospital Day: 11 I have personally reviewed the chart, meds,labs, new imaging studies, and other diagnostic studies.I have seen and examined the patient today. Today's Symptoms Afebrile On RA, SaO2 = 93 - 99% most of today. Breathing well off BIPAP since Early this AM . Fatigued but not as lethargic Oriented to person and time and usually to place. With PT, requires the EIND Transfer Frame to Sit and Stand - no yet able to walk KUB yesterday (10/21) = no bowel obstruction Data Temp (30hrs) Max:98.6 ??F (37 ??C) Vitals: 10/23/23 1250 10/23/23 1511 10/23/23 1627 10/23/231945 BP: 130/67 154/89 Pulse: 70 94 81 Resp: 18 18 20 Temp: 98.2 ??F (36.8 ??C) 97.6 ??F (36.4 ??C) SpO2: 93% 93% 94% 99% Weight: Height: Intake/Output Summary (Last 24 hours) at 10/23/2023 2103 Last data filed at 10/23/2023 1627 Gross per 24 hour Intake 480 ml Output 1200 ml Net -720 ml Filed Wts: 10/12/23 0507 10/14/23 0643 Weight: 111.1 kg (244 lb 14.9 oz) 111.1 kg (245 lb) Recent Labs Component Name 10/23/23 0437 10/22/23 0331 10/21/23 0341 WBC 15.2* 14.9* 14.3* HGB 11.6* 11.6* 11.9* HCT 37.0* 36.8* 38.0* PLTCOUNT 167 164 151 Recent Labs Component Name 10/23/23 0437 10/22/23 1532 10/22/23 0331 SODIUM 142 141 144 POTASSIUM 3.6 3.4* 3.0* CHLORIDE 114* 113* 115* CO2 22 21* 23 BUN 23 26 29* CREATININE 1.19 1.26* 1.27* GLUCOSE 104 147* 118* CALCIUM 8.2* 8.3* 8.2* MEDS 0.9% NaCl flush bag, Intravenous, CONTINUOUS PRN acetaminophen (Tylenol) tablet 1,000 mg, Oral, q6h PRN albuterol-ipratropium (Duo-Neb) nebulizer solution 3 mL, Inhalation, q6h apixaban (Eliquis) tablet 5 mg, Oral, BID aspirin chew tablet 81 mg, Oral, QDAY bisacodyl (Dulcolax) suppository 10 mg, Rectal, QDAY PRN cefTRIAXone (Rocephin) 2,000 mg in 0.9% NaCl IV 50 mL IVPB, Intravenous, q24h dextrose 10 % IV bolus, Intravenous, PRN dextrose 10 % IV bolus, Intravenous, PRN docusate sodium (Colace) capsule 100 mg, Oral, BID doxycycline monohydrate capsule 100 mg, Oral, QDAY glucagon (Glucagen) injection 1 mg, Subcutaneous, PRN glucose (Diabetic Use) oral gel, Oral, PRN insulin aspart (NovoLOG) pen 0-12 Units, Subcutaneous, 4X/day - AC & HS lidocaine (Lidoderm) 5 % patch 1 patch, Transdermal, q24h metoprolol tartrate IR (Lopressor) tablet 25 mg, Oral, BID morphine injection 2 mg, Intravenous, q4h PRN ondansetron (Zofran) injection 4 mg, Intravenous, q4h PRN rifAXIMin (Xifaxan) tablet 550 mg, Oral, BID senna (Senokot) tablet 8.6 mg, Oral, BID PRN senna-docusate (Senokot-S) tablet 1 tablet, Oral, QDAY venlafaxine (Effexor) tablet 37.5 mg, Oral, QDAY [START ON 10/24/2023] pantoprazole EC (Protonix) tablet 40 mg, Oral, QDAY Exam General appearance: a no distress HEENT: Grossly unremarkable Heart: regular rhythm, normal S1 and S2, Lungs: breath sounds clear Abdomen: soft Extremities: + edema Neuro: No focal deficits. Results BUN/Creat = 23 / 1.19 with GFR = 69 cc/min K+/Na+ = 3.6 / 142 Ca++ = 8.2 Serum Albumin = 2.3 WBC = 15,200 with H/H = 11.6 / 37 and Platelets = 167,000 Assessment and Plan Acute hypercapnic respiratory failure: Patient has been tolerating being on RA without BIPAP for approximately 18 hours. On RA, SaO2 = 93 - 99%. Significant improvement with resolution of respiratoryacidosis but has chronic hypercapnia. Can restart BIPAP overnight if he has respiratory issues during sleep. Check an ABG tomorrow AM. Altered mental status: Much more awake and follows commands. Presumed to be secondary to hypercapnic respiratory failure. CT Head without acute pathology. EEG ok. LFTT ok, Ammonia ok, on Rifaximin empirically, off Lactulose. Orietned to person, place , and usually to time. Bilateral pleural effusion with attendant atelectasis: CXR 10/17/2023 shows significant improvement with small let pleural effusion. Repeat CXR in AM. Hypernatremia presumably secondary to diuresis. Improving. Patient on D5W at 125cc/hour. Nephrology has been consulted Group G Streptococcus bacteremia per blood cultures at outside facility: Patient is currently on Day # 11 of IV Ceftriaxone = ends tomorrow. Continues on Day # 4 of oral Doxycycline BID. ID Service is following. Excessive narcotic use during this hospitalization: Patient is now off Narcan drip Anasarca during the hospitalization: Echocardiogram showed EF of 45 percent, BNP remains elevated but patient is clinically less fluid overloaded. Diuretics are being held secondary to hypernatremia History of atrial fibrillation: Patient is on beta-fe and Eliquis Code status: Full. Extended Visit X 60 - 70 Minutes to reassess pt's cardiopulmonary status and to assess diagnostic testing, labs, and current medications so as to adjust medications appropriately and to plan other patient treatments and care. Rupesh Mcallister Jr., M.D., F.C.C.P. Covering for Tiffany Fortune M..D. * Mark Rios MD - 10/23/2023 6:46 PM CDT Images from the original note were not included. Infectious Diseases Progress Note José Miguel Keys 10/13/2023 Hospital Day 11 Subjective Looking better Is fatigued Abdomen feels better Thigh feels well. On bowel regiment Abx Ceftriaxone 10/12- Clindamycin 10/11-10/17 Vanc 10/11-10/13 Flagyl 10/11-10/12 Cefepime 10/11 Exam BP 130/67 (BP Location: Right arm, Patient Position: Lying) Pulse 94 Temp 98.2 ??F (36.8 ??C) (Oral) Resp 18 Ht 1.803 m (5' 10.98 ) Wt 111.1 kg (245 lb) SpO2 94% BMI 34.19 kg/m?? General: NAD, fatigued Neuro: alert, responds appropriately Lungs: non-labored on NC, diminished at bases CV: normal rate, regular Abd: abdominal distension improved Ext: Left thigh and leg less redness. Wrinkles present to thigh. Mild ttp. No induration. R IJ CVC 10/10-10/13 Data Recent Labs Component Name 10/23/23 0437 10/22/23 0331 10/21/23 0341 WBC 15.2* 14.9* 14.3* HGB 11.6* 11.6* 11.9* HCT 37.0* 36.8* 38.0* PLTCOUNT 167 164 151 Recent Labs Component Name 10/23/23 0437 10/22/23 1532 10/22/23 0331 SODIUM 142 141 144 POTASSIUM 3.6 3.4* 3.0* CHLORIDE 114* 113* 115* CO2 22 21* 23 BUN 23 26 29* CREATININE 1.19 1.26* 1.27* GLUCOSE 104 147* 118* CALCIUM 8.2* 8.3* 8.2* Recent Labs Component Name 10/23/23 0437 10/22/23 0331 10/21/23 0341 10/20/23 0353 10/19/23 0336 10/18/23 0745 10/17/23 1421 10/17/23 0336 ALBUMIN 2.3* 2.4* 2.4* - 2.5* 2.5* - 2.5* ALKPHOS - - - - 80 81 - 73 ALT - - - - 38 45 - 53 AST - - - - 31 32 - 57* TBIL - - - - 0.8 1.1 - 0.5 TPROT - - - - 6.8 6.8 - 7.1 - = values in this interval not displayed. Microbiology Blood culture 10/10 Dandre Group G Strep (R clinda) 10/11 negative Radiology 10/10 CXR: Mild interstitial edema vs senescent change 10/10 Venous Doppler LLE: No DVT 10/10 CTA Chest: Distended gallbladder, cholelithiasis. No PE 10/10 CT A/P wo: stone in gallbladder neck. L1-2 fusion. Mild peripancreatic inflammatory changes 10/11 CT LLE wo: There is a moderate cellulitis in the skin and subcutaneous soft tissues along the medial aspect of the left thigh. No gas is seen in the soft tissues. No drainable abscess collection is seen. No evidence for inflammatory change in the fascial planes of the left thigh. 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 10/15 CT C/A/P wo: Moderate bilateral loculated pleural effusions. Slightly nodular [...] blood products given an adjacent soft tissue contusioninjury in the left lateral soft tissues and a mildly displaced left posterior 11th rib fracture. Nofree air identified. Subtle hazy stranding in the upper abdominal mesentery which could reflect posttraumatic changes/mesenteric injury or mesenteritis. This is in proximity of the pancreas however is felt less likely reflect pancreatitis. Recommend correlation with patient history and lipase. Diffuse bladder wall thickening which could be seen in the setting of cystitis. Recommend correlation with urinalysis. KUB 10/21 MEDICATIONS FOR CURRENT ENCOUNTER: SCHEDULED MEDICATIONS: albuterol-ipratropium (Duo-Neb) nebulizer solution 3 mL, Inhalation, q6h apixaban (Eliquis) tablet 5 mg, Oral, BID aspirin chew tablet 81 mg, Oral, QDAY cefTRIAXone (Rocephin) 2,000 mg in 0.9% NaCl IV 50 mL IVPB, Intravenous, q24h docusate sodium (Colace) capsule 100 mg, Oral, BID doxycycline monohydrate capsule 100 mg, Oral, QDAY insulin aspart (NovoLOG) pen 0-12 Units, Subcutaneous, 4X/day - AC & HS lidocaine (Lidoderm) 5 % patch 1 patch, Transdermal, q24h metoprolol tartrate IR (Lopressor) tablet 25 mg, Oral, BID rifAXIMin (Xifaxan) tablet 550 mg, Oral, BID senna-docusate (Senokot-S) tablet 1 tablet, Oral, QDAY venlafaxine (Effexor) tablet 37.5 mg, Oral, QDAY [COMPLETED] potassium chloride ER (Klor-Con M) tablet 20 mEq, Oral, Once [START ON 10/24/2023] pantoprazole EC (Protonix) tablet 40 mg, Oral, QDAY CONTINUOUS MEDICATIONS: 0.9% NaCl flush bag, Intravenous, CONTINUOUS PRN PRN MEDICATIONS: Or Or 0.9% NaCl flush bag, Intravenous, CONTINUOUS PRN acetaminophen (Tylenol) tablet 1,000 mg, Oral, q6h PRN bisacodyl (Dulcolax) suppository 10 mg, Rectal, QDAY PRN dextrose 10 % IV bolus, Intravenous, PRN dextrose 10 % IV bolus, Intravenous, PRN glucagon (Glucagen) injection 1 mg, Subcutaneous, PRN glucose (Diabetic Use) oral gel, Oral, PRN morphine injection 2 mg, Intravenous, q4h PRN ondansetron (Zofran) injection 4 mg, Intravenous, q4h PRN senna (Senokot) tablet 8.6 mg, Oral, BID PRN Assessment - Abdominal distension- kub noted Likely component of constipation --Group G strep septicemia with septic shock, concern for left thigh nec fasc or cellulitis with myositis and Streptococcal toxic shock syndrome CK and CRP not majorly elevated, CK seems to have peaked Weaned off pressors IVIG 10/11-10/12 CT WITHOUT contrast without evidence for gas 10/11 and 10/14. Surgery evaluated and both times recommended no surgery CT C/A/P non-specific peripancreatic finding was also reported on outside initial CT and his lipasewas normal on admit. Liver enzymes not consistent with a hepatobiliary process. Pleural effusion likely from volume state I do not think there is an additional process for how sick he is. I think this was streptococcal toxic shock from left leg in a cirrhosis patient that developed RADHA. His leg does not currently look great but in several ways it looks better than the first 3 days of admission. He is going to have a very slow recovery. CRP about 60% better over the one week since admission. 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 [id number], on chronic suppressive doxycycline 100mg Afib, hx of DVT on eliquis BPH on flomax RADHA on CKD, improved MICHAUD and cirrhosis with small lower esophageal varices on 2022 EGD, portal hypertensive gastropathy Hx of PUD with bleeding COPD Obesity, BMI 34 Plan - monitor abdominal distension. -Continue ceftriaxone 2g daily, x 1 more day -resumed chronic doxycycline 100mg daily ppx as per prior ID plan monitor if able to tolerate po - monitor clinically D/w nursing Mark Rios MD * Cheri Pierre RN - 10/23/2023 4:57 PM CDT Problem: Impaired Gas Exchange Goal: Resp rate/effort will be within specified limits Description: To maintain oxygen within normal parameters. RT to monitor. Outcome: Progressing Problem: Oral Intake: Inadequate oral intake Goal: Total intake will meet estimated nutrient needs Outcome: Progressing Problem: Fall Risk Goal: Fall risk and fall related injury risk are minimized (interventions related to the fall risk can be found in the flowsheet documentation) Outcome: Progressing * Alfonso Cleo, PT - 10/23/2023 1:18 PM CDT Physical Therapy Treatment Summary Chart review completed. Nursing consented for PT. Explained purpose of PT and patient consented to participate in therapy. RECOMMENDATIONS/PLAN: PT Discharge Recommendations: Patient would benefit from multidisciplinary therapy This recommendation is made due to ongoing PT functional needs: address care for self in the home;address functional deficits;patient to return to prior level of care;patient is motivated and actively participating in therapy;patient has ability to improve with skilled therapy intervention PPE worn by staff: gloves PPE worn by patient: gown - patient, clean;socks - clean AM-PAC Basic mobility score for this patient is Mobility Raw Score:: 8 SUBJECTIVE: Subjective: agreeable Patient's Goal for the Day: to get to chair Pain Assessment: Pain Location #1 Pain Rating Score #1: (did not convey pain during session) OBJECTIVE: Precautions: fall, chair alarm Bed Mobility: Rolling: Moderate Assistance to Left (to removed bedpan) Supine to Sit: Maximum Assistance Transfers: Sit to Stand: Moderate Assistance;X 2;Requires Verbal Cues for Safety;Requires Physical Cues for Safety;Requires Verbal Cues for Technique;Requires Physical Cues for Technique (pulling up on ENID steady) Stand to Sit: Moderate Assistance;X 2;Requires Verbal Cues for Safety;Requires Physical Cues for Safety;Requires Verbal Cues for Technique;Requires Physical Cues for Technique Bed to Chair: Total Assistance Type of Transfer: Mechanical Lift (ENID steady frame transfer) Mobility: Distance Ambulated (ft): 0 FEET Balance: sitting EOB fair, standing in ENID steady fair Activity Tolerance: room air, sats at 93% Exercise: ankle pumps, hip /knee flexion in supine with boots to protect heels ASSESSMENT: approached pt agreeable to chair, roll modA, supine to sit maxA, at EOB CGA, pt then ENID steady to recliner, sit/stand pulling modA of 2, pt able to fully extend legs when in ENID steady, set up for lunch Call light and phone in reach with chair alarm activated. All lines, monitors, IV's, equipment in place and intact pre and post visit. Pt educated in PT plan of care, fall precautions, and benefits of OOB activity, in recliner at end of session. RNCheri, notified of patient's performance/location end of session. Max, Manager Banking, present to assist throughout the session. Please refer to the Filed Flowsheet for further details. Refer to Plan of Care for PT goals. If this is the last Physical Therapy visit, this note serves as the discharge summary. [phone] * Sadia Otoole - 10/23/2023 12:31 PM CDT 10/23/23 1200 Visit Type Assessment Date 10/23/23 Thermodynamics Professor Visiting Patient [facility] Pastoral Care Reason for Visit Follow Up Pastoral Care Visit Type(s) Follow Up Encounter Type Patient Interventions Pastoral Care Prayer;Support Plan/Outcome Plan Will Remain Available if Requested * Glendy Mayorga RCP - 10/23/2023 11:44 AM CDT Problem: Impaired Gas Exchange Goal: Resp rate/effort will be within specified limits Description: To maintain oxygen within normal parameters. RT to monitor. Note: José Miguel was assessed on room air, Sp02 was 91%, his respiratory rate/pattern is WDL, He's receiving Q6 Duoneb. I will continue to monitor * Yanira Macias MD - 10/23/2023 9:36 AM CDT Neurology Progress Note Patient Name José Miguel Keys Days of Admission: 11 Reason for Visit Mental status changes Clinical Course/New Symptoms Patient is a 72 year old male with a history of atrial fibrillation, on Eliquis,CHF, COPD, CKD, coronary artery disease, diabetes,previous DVT, VALENTINA on BiPAP at night who was transferred to our facility secondary to sepsis/ left thigh cellulitis. Rapid response called 10/16/2023 due to increased respiratory distress and mental status changes. 0.4mg narcan given as total of 60mg oxycodone has been given during the last 24 hours. ABG obtained. PH 7.31, CO2 61, HCO3 30.7. CT brain did not show acuteprocess. Mental status continues to improve Awake and follows commands Data Reviewed CT brain without acute process Ammonia level 26 EEG without discharges Objective Patient Vitals for the past 24 hrs: Temp Pulse Resp BP SpO2 10/23/23 0754 97.9 ??F (36.6 ??C) 91 18 133/69 94 % 10/23/23 0323 98.6 ??F (37 ??C) 83 18 131/63 95 % 10/23/23 0311 -- 77 -- -- 93 % 10/23/23 0308 -- 77 19 -- 93 % 10/23/23 0128 -- 83 -- -- 94 % 10/22/23 2321 98.4 ??F (36.9 ??C) 80 18 146/64 94 % 10/22/232029 -- 84 18 -- 91 % 10/22/232019 98.3 ??F (36.8 ??C) 96 18 138/62 99 % 10/22/23 2007 97.8 ??F (36.6 ??C) 80 18 148/81 94 % 10/22/23 1532 98.1 ??F (36.7 ??C) 81 20 149/75 94 % 10/22/23 1512 -- 79 22 -- 97 % 10/22/23 1200 -- 93 27 156/88 100 % 10/22/23 1142 97.4 ??F (36.3 ??C) 93 26 154/95 100 % Labs: Recent Labs Component Name 10/23/2343610/22/23 0331 10/21/23 0341 WBC 15.2* 14.9* 14.3* HGB 11.6* 11.6* 11.9* HCT 37.0* 36.8* 38.0* PLTCOUNT 167 164 151 Recent Labs Component Name 10/23/237 10/22/23 1532 10/22/23 0331 10/21/23 0341 10/19/23 1639 10/19/23 0336 10/18/23 0745 10/17/23 1421 10/17/23 0336 SODIUM 142 141 144 148* - 156* 153* - 146* POTASSIUM 3.6 3.4* 3.0* 3.1* - 3.3* 3.7 - 5.6* CHLORIDE 114* 113* 115* 119* - 120* 113* - 115* CO2 22 21* 23 23 - 27 28 - 20* BUN 23 26 29* 37* - 63* 81* - 89* CREATININE 1.19 1.26* 1.27* 1.41* - 1.83* 2.34* - 2.51* GLUCOSE 104 147* 118* 132* - 120* 152* - 107* CALCIUM 8.2* 8.3* 8.2* 8.3* - 9.3 9.5 - 9.0 ALBUMIN 2.3* - 2.4* 2.4* - 2.5* 2.5* - 2.5* ALKPHOS - - - - - 80 81 - 73 ALT - - - - - 38 45 - 53 AST - - - - - 31 32 - 57* TBIL - - - - - 0.8 1.1 - 0.5 TPROT - - - - - 6.8 6.8 - 7.1 EGFR 64* 60* 59* 52* - 38* 28* - 26* - = values in this interval not displayed. Recent Labs Component Name 08/20/20 0000 CHOL 150 TRIG 73 HDL 45 Recent Labs Component Name 10/12/23 0503 03/08/23 1349 08/10/22 1259 INR 1.2* 1.0 1.1 I have reviewed chart and the pertinent images and studies are personally reviewed Past Medical History: Diagnosis Date Actinic keratosis Arthritis Asthma (HCC) Atrial fibrillation, chronic (HCC) Basal cell carcinoma CAD (coronary artery disease) Clotting disorder (HCC) Colitis COPD (chronic obstructive pulmonary disease) (HCC) Diabetes (HCC) DVT (deep venous thrombosis) (HCC) Dyslipidemia Eczema GERD (gastroesophageal reflux disease) Heart attack (HCC) High blood pressure Hx of blood clots Keloid Kidney disease Lentigo maligna melanoma (HCC) MRSA (methicillin resistant staph aureus) culture positive 07/29/2017; 02/04/19; 04/29/2019 07/29/17-Disc- tissue culture MRSA; R hip; nasal swab+ Obstructive sleep apnea VALENTINA (obstructive sleep apnea) Other cirrhosis of liver (HCC) Peripheral neuropathy Psoriasis S/P PICC central line placement 02/13/2019 [facility] VAT R basilic Seizures (HCC) Squamous cell carcinoma VRE (vancomycin resistant enterococcus) culture positive 04/29/2019 rectal swab+ 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 Tobramycin Eye Itching red around the eyes, puffy, itchy Family History Problem Relation Name Age of Onset CAD (Coronary Artery Disease) Mother age 65 Cirrhosis Father Cancer - Breast Neg Hx CVA Neg Hx Hemophilia Neg Hx Cancer - Other Neg Hx Eczema Neg Hx Psoriasis Neg Hx Cancer - Skin, Non Melanoma Neg Hx Cancer - Skin, Melanoma Neg Hx Social History Socioeconomic History Marital status: Spouse name: Not on file Number of children: Not on file Years of education: Not on file Highest education level: Not on file Occupational History Not on file Tobacco Use Smoking status: Former Types: Cigarettes Quit date: 06/06/1981 Years since quittin.4 Smokeless tobacco: Never Vaping Use Vaping Use: Never used Substance and Sexual Activity Alcohol use: No Drug use: No Sexual activity: Not on file Other Topics Concern Not on file Social History Narrative Merged History Encounter [place] war Social Determinants of Health Financial Resource Strain: Low Risk (10/14/2023) Overall Financial Resource Strain (CARDIA) Difficulty of Paying Living Expenses: Not hard at all Food Insecurity: No Food Insecurity (10/14/2023) Hunger Vital Sign Worried About Running Out of Food in the Last Year: Never true Ran Out of Food in the Last Year: Never true Transportation Needs: No Transportation Needs (10/14/2023) PRAPARE - Transportation Lack of Transportation (Medical): No Lack of Transportation (Non-Medical): No Stress: No Stress Concern Present (10/14/2023) [employer] - Occupational Stress Questionnaire Feeling of Stress : Only a little Housing Stability: Low Risk (10/14/2023) Housing Stability Vital Sign Unable to Pay for Housing in the Last Year: No Number of Places Lived in the Last Year: 1 Unstable Housing in the Last Year: No MEDICATIONS FOR CURRENT ENCOUNTER: SCHEDULED MEDICATIONS: albuterol-ipratropium (Duo-Neb) nebulizer solution 3 mL, Inhalation, q6h apixaban (Eliquis) tablet 5 mg, Oral, BID aspirin chew tablet 81 mg, Oral, QDAY cefTRIAXone (Rocephin) 2,000 mg in 0.9% NaCl IV 50 mL IVPB, Intravenous, q24h docusate sodium (Colace) capsule 100 mg, Oral, BID doxycycline monohydrate capsule 100 mg, Oral, QDAY insulin aspart (NovoLOG) pen 0-12 Units, Subcutaneous, 4X/day - AC & HS lidocaine (Lidoderm) 5 % patch 1 patch, Transdermal, q24h metoprolol tartrate IR (Lopressor) tablet 25 mg, Oral, BID pantoprazole (Protonix) injection 40 mg, Intravenous, QDAY rifAXIMin (Xifaxan) tablet 550 mg, Oral, BID senna-docusate (Senokot-S) tablet 1 tablet, Oral, QDAY venlafaxine (Effexor) tablet 37.5 mg, Oral, QDAY [COMPLETED] potassium chloride ER (Klor-Con M) tablet 20 mEq, Oral, Once [COMPLETED] potassium chloride ER (Klor-Con M) tablet 40 mEq, Oral, Once [COMPLETED] potassium phosphate 30 mmol in dextrose 5 % 260 mL bolus, Intravenous, Once CONTINUOUS MEDICATIONS: 0.9% NaCl flush bag, Intravenous, CONTINUOUS PRN PRN MEDICATIONS: Or Or 0.9% NaCl flush bag, Intravenous, CONTINUOUS PRN acetaminophen (Tylenol) tablet 1,000 mg, Oral, q6h PRN bisacodyl (Dulcolax) suppository 10 mg, Rectal, QDAY PRN dextrose 10 % IV bolus, Intravenous, PRN dextrose 10 % IV bolus, Intravenous, PRN glucagon (Glucagen) injection 1 mg, Subcutaneous, PRN glucose (Diabetic Use) oral gel, Oral, PRN morphine injection 2 mg, Intravenous, q4h PRN ondansetron (Zofran) injection 4 mg, Intravenous, q4h PRN senna (Senokot) tablet 8.6 mg, Oral, BID PRN Physical Exam General appearance: well developed, in no apparent distress Head: Atraumatic, no obvious abnormality Neck: Normal carotid pulses, no bruits CVS: S1 S2 heard. No murmurs or gallop heard. Resp: Air entry is equal bilaterally without evidence of crackles or rhonchi. Abd: Non tender, non distended and no evidence of organomegaly. Ext: Distal pulses are preserved, no edema Psychiatric: no depression, no anxiety Skin: No rashes, no change of color Neuro Exam: Mental Status: More awake, follows simple commands Speech: has BiPAP on, nonverbal Cranial Nerves: 1. (Cranial Nr 2) Fundii - Not able to test, pupil reactive to light 2. (Cranial Nr 3,4,6) Extra Ocular Movements - Intact 3. (Cranial Nr 5) Facial sensation - Equal Bilaterally 4. (Cranial Nr 7) Facial expression - No Facial Asymmetry 5. (Cranial Nr 8) Hearing - Intact to conversation and finger rub 6. (Cranial Nr 9, 10) Voice - No change in quality or pitch Palate - Elevates equally Gag - Present 7. (Cranial Nr 11) Elevate shoulder - Bilaterally without paralysis 8. (Cranial Nr 12) Tongue - No deviation or wasting Motor: Has spontaneous movements in all extremities Sensation: withdrawal to pain Reflexes: DTRs Symmetric 1+ with plantar responses both sides Coordination/Cerebellar: not able to test Gait: not tested. Assessment: 1. Mental status changes Suspect metabolic encephalopathy secondary to infection and respiratory distress Neurologically would like to rule out nonconvulsive seizure and embolic strokes, but both diagnosesare less likely CT brain without acute process 2. Septic shock Left thigh cellulitis Group G strep bacteremia 3. 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 RADHA on CKD 5. History of MICHAUD liver cirrhosis 6. COPD Plan: 1. EEG reviewed without discharges 2. Continue Eliquis and low dose of ASA 3. Pulmonology follows On BiPAP at night 4. S/p Ceftriaxone and on Doxycycline 5. Ammonia level checked which is normal S/p Lactulose 6. Hold off MRI brain since mental status has been better 7. Follow up with exam Yanira Macias MD * Jayme Rodriguez MD - 10/23/2023 9:23 AM CDT Internal Medicine Progress Note -Hospitalist Admit Date: 10/12/2023 4:19 AM Hospital Day: 11 Clinical Course: 72 independent living, history of AFib, CHF, VALENTINA on BiPAP at nighttime, COPD, CKD was admitted for sepsis and lower extremity cellulitis Started on IV antibiotics Course complicated by significant confusion requiring Neurology consultation. Also noted severe hypernatremia. NG was placed. 10/19 mentally better 10/20 NG was pulled out, passed swallow eval, oriented 10/21 feels better overall improving, can move out of IMCU 10/22 improved, now on room air New Symptoms: Patient continues to improve. He is doing better today his mental status is improving again able toeat by himself Objective: Vitals: 10/23/23 0308 10/23/23 0311 10/23/23 0323 10/23/23 0754 BP: 131/63 133/69 Pulse: 77 77 83 91 Resp: Temp: 98.6 ??F (37 ??C) 97.9 ??F (36.6 ??C) SpO2: 93% 93% 95% 94% Weight: Height: General appearance: Awake responsive, able to communicate and ask the right questions Left pupil is bigger than right Heart: normal rate Lungs: breath sounds normal and symmetric; no rales or wheezes Abdomen: soft without mass, non-tender, with normal bowel sounds Extremities: no clubbing, cyanosis or edema, chronic venous insufficiency changes on bilateral calves. Left thigh is no longer red and tender. Intake/Output Summary (Last 24 hours) at 10/23/2023 0923 Last data filed at 10/23/2023 0328 Gross per 24 hour Intake 1256.38 ml Output 1150 ml Net 106.38 ml Current Medications: MEDICATIONS FOR CURRENT ENCOUNTER: SCHEDULED MEDICATIONS: albuterol-ipratropium (Duo-Neb) nebulizer solution 3 mL, Inhalation, q6h apixaban (Eliquis) tablet 5 mg, Oral, BID aspirin chew tablet 81 mg, Oral, QDAY cefTRIAXone (Rocephin) 2,000 mg in 0.9% NaCl IV 50 mL IVPB, Intravenous, q24h docusate sodium (Colace) capsule 100 mg, Oral, BID doxycycline monohydrate capsule 100 mg, Oral, QDAY insulin aspart (NovoLOG) pen 0-12 Units, Subcutaneous, 4X/day - AC & HS lidocaine (Lidoderm) 5 % patch 1 patch, Transdermal, q24h metoprolol tartrate IR (Lopressor) tablet 25 mg, Oral, BID pantoprazole (Protonix) injection 40 mg, Intravenous, QDAY rifAXIMin (Xifaxan) tablet 550 mg, Oral, BID senna-docusate (Senokot-S) tablet 1 tablet, Oral, QDAY venlafaxine (Effexor) tablet 37.5 mg, Oral, QDAY [COMPLETED] potassium chloride ER (Klor-Con M) tablet 20 mEq, Oral, Once [COMPLETED] potassium chloride ER (Klor-Con M) tablet 40 mEq, Oral, Once [COMPLETED] potassium phosphate 30 mmol in dextrose 5 % 260 mL bolus, Intravenous, Once CONTINUOUS MEDICATIONS: 0.9% NaCl flush bag, Intravenous, CONTINUOUS PRN PRN MEDICATIONS: Or Or 0.9% NaCl flush bag, Intravenous, CONTINUOUS PRN acetaminophen (Tylenol) tablet 1,000 mg, Oral, q6h PRN bisacodyl (Dulcolax) suppository 10 mg, Rectal, QDAY PRN dextrose 10 % IV bolus, Intravenous, PRN dextrose 10 % IV bolus, Intravenous, PRN glucagon (Glucagen) injection 1 mg, Subcutaneous, PRN glucose (Diabetic Use) oral gel, Oral, PRN morphine injection 2 mg, Intravenous, q4h PRN ondansetron (Zofran) injection 4 mg, Intravenous, q4h PRN senna (Senokot) tablet 8.6 mg, Oral, BID PRN Data: Recent Labs Component Name 10/23/2343610/22/23 1532 10/22/23 0331 SODIUM 142 141 144 POTASSIUM 3.6 3.4* 3.0* BUN 23 26 29* CREATININE 1.19 1.26* 1.27* GLUCOSE 104 147* 118* Recent Labs Component Name 10/23/2343610/22/23 0331 10/21/23 0341 WBC 15.2* 14.9* 14.3* HGB 11.6* 11.6* 11.9* HCT 37.0* 36.8* 38.0* PLTCOUNT [address] FEMUR LEFT WO CONTRAST Result Date: 10/12/2023 IMPRESSION: There is a moderate cellulitis in the skin and subcutaneous soft tissues along the medial aspect of the left thigh. No gas is seen in the soft tissues. No drainable abscess collection is seen. No evidence for inflammatory change in the fascial planes of the left thigh. 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 > Interpreting Provider: Jose Alberto Kemp MD on 10/12/2023 11:59 AM XR CHEST 1VW PORTABLE Result Date: 10/12/2023 IMPRESSION: Tubes and lines in adequate position without a pneumothorax Oral and parenchymal changeat the left base slightly progressive in the interval > Interpreting Provider: Alberto Atwood MDon 10/12/2023 8:23 AM Assessment and Plan Optimize electrolyte Physical therapy Adding sent He will need rehabilitation 1. Altered mental status Please review previous notes Completely resolved 2. Septic shock presented on admission IV fluids, IV antibiotics and resolved Ceftriaxone 3. Left thigh cellulitis looks to be improving almost erythema has gone Continue with IV antibiotic CT scan showed no soft tissue gas and no abscess Surgery and Infectious Disease managing Continue IV antibiotics 4. Group G strep bacteremia Secondary to above Continue on ceftriaxone likely until 10/23 Noted chronic suppressive antibiotics at home. 5. Lactic acidosis resolved 6. Hypernatremia On D5 I will start free water flushes 300 q.4 hours and will repeat labs in the morning He looks to be much better 7. Difficulty swallowing Likely secondary to altered mental status. I am expecting that this will resolved will pull NG tube to do speech evaluation NG removed 10/20 started on diet 8. Acute on chronic kidney disease likely ATN in the settings of shock also received contrast Improving 9. Acute on chronic hypoxemic respiratory failure looks to be much better Extubated October 11 Currently on nasal cannula 10. History of COPD no wheezing 11. History of CHF monitor fluid status 12. History of atrial fibrillation on Eliquis and metoprolol 13. Michaud cirrhosis continue rifaximin will stop lactulose 14. Hypokalemia repleted Discussed with Dr. Blanca JOHN Patient's Functional Baseline prior to admit: independent Discharge Planning to Next Site of Care: Most likely to need some kind of rehabilitation Anticipated discharge date: 10/23 READMISSION RISK SCORE is 15 at 9:23 AM 10/23/2023. DVT prophylaxis: Eliquis Full Code Jayme Rodriguez MD 10/23/2023 9:23 AM Portions of this note may be dictated using voice recognition software. Variances in spelling and vocabulary are possible and unintentional. Not all errors are caught/corrected. Please notify the author if any discrepancies are noted or if the meaning of any statement is not clear. These grammatical oversights have no impact on the medical care provided to the patient. Time in which this note is created does not match the time of rounding/clinical exam. * Celso Denson MD - 10/23/2023 7:11 AM CDT Images from the original note were not included. Nephrology Progress Note Admit Date: 10/12/2023 4:19 AM Hospital Day: 11 Assessment: Acute kidney injury - ATN secondary shock status and hypotension + ELLIOTT - SCr 2.9 mg/dL on 10/12 - SCr 1.8 mg/dL 08/2022 - SCr baseline 1.5 mg/dL since 2019 Hyperkalemia Metabolic acidosis Sepsis Possible lower extremity cellulitis Shock status-possibly sepsis Acute hypoxic respiratory failure COPD Hx AFib Hx CHF Hx cirrhosis secondary to MICHAUD Full Code *PCP is Provider Unknown* Recommendations: Azotemia better again today Replaced K Phos IV Na improved Cap IVF Holding Lasix for now Maintain Cabral catheter Checked urine indices Antibiotics per ID Gabapentin held Avoid MAP < 65 Avoid further IV contrast and NSAIDs Case d/w Dr. Michael Bauman to see tomorrow Reason for Consult Acute kidney injury Clinical Course 10/12/2023: Admitted 10/12: Renal consult 10/13: Urine output 760 cc in last 24 hours. Off pressors. On low-rate LR 10/14: Somnolent. Cabral removed early this morning. 10/15: Cabral replaced due to continued urinary retention. 10/16: TONGUE AND QUARTER STITCHER called overnight due to AMS. Given narcan, placed on BiPAP, transferred to step down for closer monitoring. Remains on narcan drip this morning. 10/17: remains lethargic. 10/18: More awake today, though still confused 10/19: More awake and interactive. 10/20: Awake and conversant, less confused. 10/21: ICU; resting in bed 10/22: 4C; up in bed New Symptoms No new complaints. Feels better today. Exam Gen: awake, cooperative, NAD Heart: regular rhythm, S1S2, without rub Lungs: breath sounds diminished B; no wheezes or crackles; no distress at rest on oxygen via NC Abd: soft without mass, non-tender, with bowel sounds, FMS Ext: no cyanosis, trace edema, heel protectors : Cabral absent Data Vitals: 10/23/23 0128 10/23/23 0308 10/23/23 0311 10/23/23 0323 BP: 131/63 Pulse: 83 77 77 83 Resp: Temp: 98.6 ??F (37 ??C) SpO2: 94% 93% 93% 95% Weight: Height: Supplemental Oxygen (last filed value): O2 L/M: 1 (10/22/23 1142) Temp (30hrs) Max:98.6 ??F (37 ??C) Intake/Output Summary (Last 24 hours) at 10/23/2023 0711 Last data filed at 10/23/2023 0328 Gross per 24 hour Intake 2569.84 ml Output 1150 ml Net 1419.84 ml Admission weight: Weight: 111.1 kg (244 lb 14.9 oz) (10/12/23 0507) Most recent weight: Weight: 111.1 kg (245 lb) (10/14/23 0643) Recent Labs Component Name 10/23/23 0437 10/22/23 1532 10/22/23 0331 10/21/23 0341 SODIUM 142 141 144 148* POTASSIUM 3.6 3.4* 3.0* 3.1* CHLORIDE 114* 113* 115* 119* CO2 22 21* 23 23 BUN 23 26 29* 37* CREATININE 1.19 1.26* 1.27* 1.41* GLUCOSE 104 147* 118* 132* CALCIUM 8.2* 8.3* 8.2* 8.3* ALBUMIN 2.3* - 2.4* 2.4* PHOS 2.8 - 2.2* 2.4 Recent Labs Component Name 10/23/23 0437 10/22/23 1532 10/22/23 0331 EGFR 64* 60* 59* Recent Labs Component Name 10/23/23 0437 10/22/23 0331 10/21/23 0341 MAGNESIUM 1.8 1.9 2.1 Recent Labs Component Name 10/23/237 10/22/23 0331 10/21/23 0341 WBC 15.2* 14.9* 14.3* HGB 11.6* 11.6* 11.9* HCT 37.0* 36.8* 38.0* PLTCOUNT 167 164 151 Recent Labs Component Name 10/15/23 0444 10/14/23 0337 10/13/23 1153 CK 440* 786* 905* Recent Labs Component Name 10/13/23 1424 COLORUA Celia* CLARITYUA Cloudy* SPECGRAVUA 1.028 PHUA 5.0 PROTEINUA 2+* BLOODUA 3+* LEUKOCYTEUA 2+* NITRITEUA Negative GLUCOSEUA Negative KETONEUA Negative BILIRUBINUA Negative UROBILINUA Negative WBCUA >100* RBCUA >100* BACTUA None Seen Recent Labs Component Name 10/13/23 1424 09/01/17 0016 07/15/17 2358 07/15/17 0018 SODIUMUR <20 - - - POTASSIUMUR 69.3 - - - CHLORIDEUR <20.0 - - - CREATININEUR - 89 83 66 MEDICATIONS FOR CURRENT ENCOUNTER: SCHEDULED MEDICATIONS: albuterol-ipratropium (Duo-Neb) nebulizer solution 3 mL, Inhalation, q6h apixaban (Eliquis) tablet 5 mg, Oral, BID aspirin chew tablet 81 mg, Oral, QDAY cefTRIAXone (Rocephin) 2,000 mg in 0.9% NaCl IV 50 mL IVPB, Intravenous, q24h docusate sodium (Colace) capsule 100 mg, Oral, BID doxycycline monohydrate capsule 100 mg, Oral, QDAY insulin aspart (NovoLOG) pen 0-12 Units, Subcutaneous, 4X/day - AC & HS lidocaine (Lidoderm) 5 % patch 1 patch, Transdermal, q24h metoprolol tartrate IR (Lopressor) tablet 25 mg, Oral, BID pantoprazole (Protonix) injection 40 mg, Intravenous, QDAY potassium chloride ER (Klor-Con M) tablet 20 mEq, Oral, Once rifAXIMin (Xifaxan) tablet 550 mg, Oral, BID senna-docusate (Senokot-S) tablet 1 tablet, Oral, QDAY venlafaxine (Effexor) tablet 37.5 mg, Oral, QDAY [COMPLETED] potassium chloride ER (Klor-Con M) tablet 40 mEq, Oral, Once [COMPLETED] potassium phosphate 30 mmol in dextrose 5 % 260 mL bolus, Intravenous, Once CONTINUOUS MEDICATIONS: 0.9% NaCl flush bag, Intravenous, CONTINUOUS PRN PRN MEDICATIONS: Or Or 0.9% NaCl flush bag, Intravenous, CONTINUOUS PRN acetaminophen (Tylenol) tablet 1,000 mg, Oral, q6h PRN bisacodyl (Dulcolax) suppository 10 mg, Rectal, QDAY PRN dextrose 10 % IV bolus, Intravenous, PRN dextrose 10 % IV bolus, Intravenous, PRN glucagon (Glucagen) injection 1 mg, Subcutaneous, PRN glucose (Diabetic Use) oral gel, Oral, PRN morphine injection 2 mg, Intravenous, q4h PRN ondansetron (Zofran) injection 4 mg, Intravenous, q4h PRN senna (Senokot) tablet 8.6 mg, Oral, BID PRN * Alvino Goddard MD - 10/22/2023 10:54 PM CDT Pulmonary Progress Note José Miguel Keys 72 year old 1950 Admit Date: 10/12/2023 4:19 AM Hospital Day: 10 I have personally reviewed the chart, meds,labs, new imaging studies, and other diagnostic studies.I have seen and examined the patient today. Today's Symptoms Data Temp (30hrs) Max:98.3 ??F (36.8 ??C) Vitals: 10/22/23 1532 10/22/23200610/22/23201910/22/232029 BP: 149/75 148/81 138/62 Pulse: 81 80 96 84 Resp: Temp: 98.1 ??F (36.7 ??C) 97.8 ??F (36.6 ??C) 98.3 ??F (36.8 ??C) SpO2: 94% 94% 99% 91% Weight: Height: Intake/Output Summary (Last 24 hours) at 10/22/2023 2254 Last data filed at 10/22/2023 1852 Gross per 24 hour Intake 2669.84 ml Output 1250 ml Net 1419.84 ml Filed Wts: 10/12/23 0507 10/14/23 0643 Weight: 111.1 kg (244 lb 14.9 oz) 111.1 kg (245 lb) Recent Labs Component Name 10/22/23 03310/21/231 10/20/23 0353 WBC 14.9* 14.3* 14.4* HGB 11.6* 11.9* 12.8* HCT 36.8* 38.0* 40.2 PLTCOUNT 164 151 176 Recent Labs Component Name 10/22/23153110/22/2333010/21/23 0341 SODIUM 141 144 148* POTASSIUM 3.4* 3.0* 3.1* CHLORIDE 113* 115* 119* CO2 21* 23 23 BUN 26 29* 37* CREATININE 1.26* 1.27* 1.41* GLUCOSE 147* 118* 132* CALCIUM 8.3* 8.2* 8.3* MEDS 0.9% NaCl flush bag, Intravenous, CONTINUOUS PRN acetaminophen (Tylenol) tablet 1,000 mg, Oral, q6h PRN albuterol-ipratropium (Duo-Neb) nebulizer solution 3 mL, Inhalation, q6h apixaban (Eliquis) tablet 5 mg, Oral, BID aspirin chew tablet 81 mg, Oral, QDAY bisacodyl (Dulcolax) suppository 10 mg, Rectal, QDAY PRN cefTRIAXone (Rocephin) 2,000 mg in 0.9% NaCl IV 50 mL IVPB, Intravenous, q24h dextrose 10 % IV bolus, Intravenous, PRN dextrose 10 % IV bolus, Intravenous, PRN dextrose 5 % infusion, Intravenous, Continuous docusate sodium (Colace) capsule 100 mg, Oral, BID doxycycline monohydrate capsule 100 mg, Oral, QDAY glucagon (Glucagen) injection 1 mg, Subcutaneous, PRN glucose (Diabetic Use) oral gel, Oral, PRN insulin aspart (NovoLOG) pen 0-12 Units, Subcutaneous, 4X/day - AC & HS lidocaine (Lidoderm) 5 % patch 1 patch, Transdermal, q24h metoprolol tartrate IR (Lopressor) tablet 25 mg, Oral, BID morphine injection 2 mg, Intravenous, q4h PRN ondansetron (Zofran) injection 4 mg, Intravenous, q4h PRN pantoprazole (Protonix) injection 40 mg, Intravenous, QDAY rifAXIMin (Xifaxan) tablet 550 mg, Oral, BID senna (Senokot) tablet 8.6 mg, Oral, BID PRN venlafaxine (Effexor) tablet 37.5 mg, Oral, QDAY Exam General appearance: a no distress HEENT: Grossly unremarkable Heart: regular rhythm, normal S1 and S2, Lungs: breath sounds clear Abdomen: soft Extremities: + edema Neuro: No focal deficits. Results Assessment and Plan Acute hypercapnic respiratory failure: Patient is currently on BiPAP with an IPAP of 30 and EPAP of14 with 40 percent oxygen bled in. Significant improvement with resolution of respiratory acidosis but has chronic hypercapnia. Continue BIPAP at HS for now and place on NC during the day as tolerated Altered mental status: Much more awake and follows commands. Presumed to be secondary to hypercapnic respiratory failure. CT Head without acute pathology. EEG ok. LFTT ok, Ammonia ok, on Rifaximin empirically, off Lactulose Bilateral pleural effusion with attendant atelectasis: CXR 10/17/2023 shows significant improvement with small let pleural effusion. Repeat CXR in am Hypernatremia presumably secondary to diuresis. Improving. Patient on D5W at 125cc/hour. Nephrologyhas been consulted Group G Streptococcus bacteremia per blood cultures at outside facility: Patient is currently on ceftriaxone day 9, and doxycycline. Id is following patient Excessive narcotic use during this hospitalization: Patient is now off Narcan drip Anasarca during the hospitalization: Echocardiogram showed EF of 45 percent, BNP remains elevated but patient is clinically less fluid overloaded. Diuretics are being held secondary to hypernatremia History of atrial fibrillation: Patient is on beta-fe and Eliquis Code status: Full. Extended Visit X 60 - 70 Minutes to reassess pt's cardiopulmonary status and to assess diagnostic testing, labs, and current medications so as to adjust medications appropriately and to plan other patient treatments and care. Rupesh Mcallister Jr., M.D., F.C.C.P. Covering for Tiffany Fortune M..D. * Mark Rios MD - 10/22/2023 9:35 PM CDT Images from the original note were not included. Infectious Diseases Progress Note José Miguel Keys 10/13/2023 Hospital Day 10 Subjective On 4th floor Having some issues w/ frequent breathing. Abdomen is distension noted. States wants to have a bm but has fms Abx Ceftriaxone 10/12- Clindamycin 10/11-10/17 Vanc 10/11-10/13 Flagyl 10/11-10/12 Cefepime 10/11 Exam BP 138/62 (BP Location: Left arm, Patient Position: Lying) Pulse 84 Temp 98.3 ??F (36.8 ??C) (Oral) Resp 18 Ht 1.803 m (5' 10.98 ) Wt 111.1 kg (245 lb) SpO2 91% BMI 34.19 kg/m?? General: NAD Neuro: alert, responds appropriately Lungs: non-labored on NC, diminished at bases CV: normal rate, regular Abd: abdominal distension Ext: Left thigh and leg less redness. Wrinkles present to thigh. Mild ttp. No induration. R IJ CVC 10/10-10/13 Data Recent Labs Component Name 10/22/23 0331 10/21/23 0341 10/20/23 0353 WBC 14.9* 14.3* 14.4* HGB 11.6* 11.9* 12.8* HCT 36.8* 38.0* 40.2 PLTCOUNT 164 151 176 Recent Labs Component Name 10/22/23 1532 10/22/23 0331 10/21/23 0341 SODIUM 141 144 148* POTASSIUM 3.4* 3.0* 3.1* CHLORIDE 113* 115* 119* CO2 21* 23 23 BUN 26 29* 37* CREATININE 1.26* 1.27* 1.41* GLUCOSE 147* 118* 132* CALCIUM 8.3* 8.2* 8.3* Recent Labs Component Name 10/22/23 0331 10/21/23 0341 10/20/23 1534 10/20/23 0353 10/19/23 0336 10/18/23 0745 10/17/23 1421 10/17/23 033 ALBUMIN 2.4* 2.4* 2.5* - 2.5* 2.5* - 2.5* ALKPHOS - - - - 80 81 - 73 ALT - - - - 38 45 - 53 AST - - - - 31 32 - 57* TBIL - - - - 0.8 1.1 - 0.5 TPROT - - - - 6.8 6.8 - 7.1 - = values in this interval not displayed. Microbiology Blood culture 10/10 Dandre Group G Strep (R clinda) 10/11 negative Radiology 10/10 CXR: Mild interstitial edema vs senescent change 10/10 Venous Doppler LLE: No DVT 10/10 CTA Chest: Distended gallbladder, cholelithiasis. No PE 10/10 CT A/P wo: stone in gallbladder neck. L1-2 fusion. Mild peripancreatic inflammatory changes 10/11 CT LLE wo: There is a moderate cellulitis in the skin and subcutaneous soft tissues along the medial aspect of the left thigh. No gas is seen in the soft tissues. No drainable abscess collection is seen. No evidence for inflammatory change in the fascial planes of the left thigh. 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 10/15 CT C/A/P wo: Moderate bilateral loculated pleural effusions. Slightly nodular [...] blood products given an adjacent soft tissue contusioninjury in the left lateral soft tissues and a mildly displaced left posterior 11th rib fracture. Nofree air identified. Subtle hazy stranding in the upper abdominal mesentery which could reflect posttraumatic changes/mesenteric injury or mesenteritis. This is in proximity of the pancreas however is felt less likely reflect pancreatitis. Recommend correlation with patient history and lipase. Diffuse bladder wall thickening which could be seen in the setting of cystitis. Recommend correlation with urinalysis. KUB 10/21 MEDICATIONS FOR CURRENT ENCOUNTER: SCHEDULED MEDICATIONS: albuterol-ipratropium (Duo-Neb) nebulizer solution 3 mL, Inhalation, q6h apixaban (Eliquis) tablet 5 mg, Oral, BID aspirin chew tablet 81 mg, Oral, QDAY cefTRIAXone (Rocephin) 2,000 mg in 0.9% NaCl IV 50 mL IVPB, Intravenous, q24h docusate sodium (Colace) capsule 100 mg, Oral, BID doxycycline monohydrate capsule 100 mg, Oral, QDAY insulin aspart (NovoLOG) pen 0-12 Units, Subcutaneous, 4X/day - AC & HS lidocaine (Lidoderm) 5 % patch 1 patch, Transdermal, q24h metoprolol tartrate IR (Lopressor) tablet 25 mg, Oral, BID pantoprazole (Protonix) injection 40 mg, Intravenous, QDAY rifAXIMin (Xifaxan) tablet 550 mg, Oral, BID venlafaxine (Effexor) tablet 37.5 mg, Oral, QDAY [COMPLETED] potassium chloride ER (Klor-Con M) tablet 40 mEq, Oral, Once [COMPLETED] potassium phosphate 30 mmol in dextrose 5 % 260 mL bolus, Intravenous, Once CONTINUOUS MEDICATIONS: 0.9% NaCl flush bag, Intravenous, CONTINUOUS PRN dextrose 5 % infusion, Intravenous, Continuous PRN MEDICATIONS: Or Or 0.9% NaCl flush bag, Intravenous, CONTINUOUS PRN acetaminophen (Tylenol) tablet 1,000 mg, Oral, q6h PRN bisacodyl (Dulcolax) suppository 10 mg, Rectal, QDAY PRN dextrose 10 % IV bolus, Intravenous, PRN dextrose 10 % IV bolus, Intravenous, PRN glucagon (Glucagen) injection 1 mg, Subcutaneous, PRN glucose (Diabetic Use) oral gel, Oral, PRN morphine injection 2 mg, Intravenous, q4h PRN ondansetron (Zofran) injection 4 mg, Intravenous, q4h PRN senna (Senokot) tablet 8.6 mg, Oral, BID PRN Assessment - Abdominal distension- concern for ielus --Group G strep septicemia with septic shock, concern for left thigh nec fasc or cellulitis with myositis and Streptococcal toxic shock syndrome CK and CRP not majorly elevated, CK seems to have peaked Weaned off pressors IVIG 10/11-10/12 CT WITHOUT contrast without evidence for gas 10/11 and 10/14. Surgery evaluated and both times recommended no surgery CT C/A/P non-specific peripancreatic finding was also reported on outside initial CT and his lipasewas normal on admit. Liver enzymes not consistent with a hepatobiliary process. Pleural effusion likely from volume state I do not think there is an additional process for how sick he is. I think this was streptococcal toxic shock from left leg in a cirrhosis patient that developed RADHA. His leg does not currently look great but in several ways it looks better than the first 3 days of admission. He is going to have a very slow recovery. CRP about 60% better over the one week since admission. 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 -Continue ceftriaxone 2g daily, x 2 more days -resumed chronic doxycycline 100mg daily ppx as per prior ID plan monitor if able to tolerate po Onel/ dr. Hamzah Rios MD * Cheri Pierre RN - 10/22/2023 3:28 PM CDT 10/22/23 1447 Rex Scale - Adult Sensory Perception 4 Moisture 3 Activity 1 Mobility 2 Nutrition 2 Friction and Shear 1 Total Score 13 Skin assessed by 2 rn's bottom pink. Zinc spray utilized. Patient placed in low air loss mattress and turned. Heels intact * Teagan Romano RN - 10/22/2023 2:40 PM CDT Pt transferred to room 435. Report called to cheri. Dentures and bipap transferred with the patient. Pt's spouse, Trinity, updated on the transfer. * Teagan Romano RN - 10/22/2023 2:30 PM CDT Problem: Impaired Gas Exchange Goal: Resp rate/effort will be within specified limits Description: To maintain oxygen within normal parameters. RT to monitor. Outcome: Progressing Problem: Oral Intake: Inadequate oral intake Goal: Total intake will meet estimated nutrient needs Outcome: Progressing Problem: Fall Risk Goal: Fall risk and fall related injury risk are minimized (interventions related to the fall risk can be found in the flowsheet documentation) Outcome: Progressing Note: José Miguel remained free from falls. Problem: Pain/Discomfort Goal: Patient exhibits reduced pain/discomfort as evidenced by pain scores Outcome: Progressing Note: José Miguel exhibited reduced pain as evidence by pain scores. Goal: Patient uses pharmacological and non-pharmacological pain management strategies. Outcome: Progressing Problem: Potential for Urinary Catheter-Associated Infection Goal: Signs and Symptoms of urinary catheter-associated infection are avoided Outcome: Progressing Note: José Miguel has decreased s/s of CAUTI. Goal: Normal urinary patterns are established within parameters of age and disease process Outcome: Progressing Problem: Skin Integrity Goal: Skin integrity is maintained or improved Outcome: Progressing Note: José Miguel will have improved skin integrity. * Jayme Rodriguez MD - 10/22/2023 10:45 AM CDT Internal Medicine Progress Note -Hospitalist Admit Date: 10/12/2023 4:19 AM Hospital Day: 10 Clinical Course: 72 independent living, history of AFib, CHF, VALENTINA on BiPAP at nighttime, COPD, CKD was admitted for sepsis and lower extremity cellulitis Started on IV antibiotics Course complicated by significant confusion requiring Neurology consultation. Also noted severe hypernatremia. NG was placed. 10/19 mentally better 10/20 NG was pulled out, passed swallow eval, oriented 10/21 feels better overall improving, can move out of IMCU New Symptoms: Patient continues to improve. He is doing better today his mental status is improving again able toeat by himself Objective: Vitals: 10/22/23 0258 10/22/23 0437 10/22/23 0812 10/22/23 0837 BP: 129/90 165/95 Pulse: 75 98 80 104 Resp: 21 28 25 Temp: 98.1 ??F (36.7 ??C) 98 ??F (36.7 ??C) SpO2: 97% 99% 99% Weight: Height: General appearance: Awake responsive, able to communicate and ask the right questions Left pupil is bigger than right Heart: normal rate Lungs: breath sounds normal and symmetric; no rales or wheezes Abdomen: soft without mass, non-tender, with normal bowel sounds Extremities: no clubbing, cyanosis or edema, chronic venous insufficiency changes on bilateral calves. Left thigh is no longer red and tender. Intake/Output Summary (Last 24 hours) at 10/22/2023 1045 Last data filed at 10/22/2023 0825 Gross per 24 hour Intake 3208.5 ml Output 1150 ml Net 2058.5 ml Current Medications: MEDICATIONS FOR CURRENT ENCOUNTER: SCHEDULED MEDICATIONS: albuterol-ipratropium (Duo-Neb) nebulizer solution 3 mL, Inhalation, q6h apixaban (Eliquis) tablet 5 mg, Oral, BID aspirin chew tablet 81 mg, Oral, QDAY cefTRIAXone (Rocephin) 2,000 mg in 0.9% NaCl IV 50 mL IVPB, Intravenous, q24h docusate sodium (Colace) capsule 100 mg, Oral, BID doxycycline monohydrate capsule 100 mg, Oral, QDAY insulin aspart (NovoLOG) pen 0-12 Units, Subcutaneous, 4X/day - AC & HS metoprolol tartrate IR (Lopressor) tablet 25 mg, Oral, BID pantoprazole (Protonix) injection 40 mg, Intravenous, QDAY potassium phosphate 30 mmol in dextrose 5 % 260 mL bolus, Intravenous, Once rifAXIMin (Xifaxan) tablet 550 mg, Oral, BID venlafaxine (Effexor) tablet 37.5 mg, Oral, QDAY [COMPLETED] potassium chloride 40 mEq in 270 mL bolus, Intravenous, Once CONTINUOUS MEDICATIONS: 0.9% NaCl flush bag, Intravenous, CONTINUOUS PRN dextrose 5 % infusion, Intravenous, Continuous PRN MEDICATIONS: Or Or 0.9% NaCl flush bag, Intravenous, CONTINUOUS PRN acetaminophen (Tylenol) tablet 1,000 mg, Oral, q6h PRN bisacodyl (Dulcolax) suppository 10 mg, Rectal, QDAY PRN dextrose 10 % IV bolus, Intravenous, PRN dextrose 10 % IV bolus, Intravenous, PRN glucagon (Glucagen) injection 1 mg, Subcutaneous, PRN glucose (Diabetic Use) oral gel, Oral, PRN morphine injection 2 mg, Intravenous, q4h PRN ondansetron (Zofran) injection 4 mg, Intravenous, q4h PRN senna (Senokot) tablet 8.6 mg, Oral, BID PRN Data: Recent Labs Component Name 10/22/23 0331 10/21/23 0341 10/20/23 1534 SODIUM 144 148* 153* POTASSIUM 3.0* 3.1* 3.0* BUN 29* 37* 42* CREATININE 1.27* 1.41* 1.66* GLUCOSE 118* 132* 138* Recent Labs Component Name 10/22/23 0331 10/21/23 0341 10/20/23 0353 WBC 14.9* 14.3* 14.4* HGB 11.6* 11.9* 12.8* HCT 36.8* 38.0* 40.2 PLTC[address] FEMUR LEFT WO CONTRAST Result Date: 10/12/2023 IMPRESSION: There is a moderate cellulitis in the skin and subcutaneous soft tissues along the medial aspect of the left thigh. No gas is seen in the soft tissues. No drainable abscess collection is seen. No evidence for inflammatory change in the fascial planes of the left thigh. 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 > Interpreting Provider: Jose Alberto Kemp MD on 10/12/2023 11:59 AM XR CHEST 1VW PORTABLE Result Date: 10/12/2023 IMPRESSION: Tubes and lines in adequate position without a pneumothorax Oral and parenchymal changeat the left base slightly progressive in the interval > Interpreting Provider: Viola Parks 10/12/2023 8:23 AM Assessment and Plan Continue IV antibiotics: Recommended ceftriaxone for another 2-3 days to complete 2 weeks treatment He looks to have a turned around, improved significantly and looking for recovery Can be moved to cardiac tele He will need physical therapy and possibly placement planning for physical therapy before he can return home 1. Altered mental status Likely metabolic encephalopathy secondary to acute infection and hypernatremia Started to improve gradually He is more oriented 10/19 and able to answer questions appropriately Workup ongoing with Neurology Initially a rapid response was called due to altered mental status thought to be hypercapnia related to opioids started on Narcan drip and placed on BiPAP for acidosis also started on lactulose and rifaximin (lactulose stopped due to significant diarrhea) 2. Septic shock presented on admission IV fluids, IV antibiotics and resolved Ceftriaxone 3. Left thigh cellulitis looks to be improving almost erythema has gone Continue with IV antibiotic CT scan showed no soft tissue gas and no abscess Surgery and Infectious Disease managing Continue IV antibiotics 4. Group G strep bacteremia Secondary to above Continue on ceftriaxone likely until 10/23 Noted chronic suppressive antibiotics at home. 5. Lactic acidosis resolved 6. Hypernatremia On D5 I will start free water flushes 300 q.4 hours and will repeat labs in the morning He looks to be much better 7. Difficulty swallowing Likely secondary to altered mental status. I am expecting that this will resolved will pull NG tube to do speech evaluation NG removed 10/20 started on diet 8. Acute on chronic kidney disease likely ATN in the settings of shock also received contrast Improving 9. Acute on chronic hypoxemic respiratory failure looks to be much better Extubated October 11 Currently on nasal cannula 10. History of COPD no wheezing 11. History of CHF monitor fluid status 12. History of atrial fibrillation on Eliquis and metoprolol 13. Michaud cirrhosis continue rifaximin will stop lactulose Discussed with Dr. Rios -REYNA Patient's Functional Baseline prior to admit: independent Discharge Planning to Next Site of Care: Most likely to need some kind of rehabilitation Anticipated discharge date: 10/23 READMISSION RISK SCORE is 16 at 10:45 AM 10/22/2023. DVT prophylaxis: Eliquis Full Code Jayme Rodriguez MD 10/22/2023 10:45 AM Portions of this note may be dictated using voice recognition software. Variances in spelling and vocabulary are possible and unintentional. Not all errors are caught/corrected. Please notify the author if any discrepancies are noted or if the meaning of any statement is not clear. These grammatical oversights have no impact on the medical care provided to the patient. Time in which this note is created does not match the time of rounding/clinical exam. * Enid Kearns, ELISE - 10/22/2023 8:58 AM CDT Speech Pathology: José Miguel Keys is a 72 year old male, admitted to facility 07/08 to sepsis of unknown origin. SOB with an increased cough and sputum production, left leg pain and rash. Pt intubated on 10/11 and extubated same day. Past medical history includes: Past Medical History: Diagnosis Date Actinic keratosis Arthritis Asthma (HCC) Atrial fibrillation, chronic (HCC) Basal cell carcinoma CAD (coronary artery disease) Clotting disorder (HCC) Colitis COPD (chronic obstructive pulmonary disease) (HCC) Diabetes (HCC) DVT (deep venous thrombosis) (HCC) Dyslipidemia Eczema GERD (gastroesophageal reflux disease) Heart attack (HCC) High blood pressure Hx of blood clots Keloid Kidney disease Lentigo maligna melanoma (HCC) MRSA (methicillin resistant staph aureus) culture positive 07/29/2017; 02/04/19; 04/29/2019 07/29/17-Disc- tissue culture MRSA; R hip; nasal swab+ Obstructive sleep apnea VALENTINA (obstructive sleep apnea) Other cirrhosis of liver (HCC) Peripheral neuropathy Psoriasis S/P PICC central line placement 02/13/2019 H VAT R basilic Seizures (HCC) Squamous cell carcinoma VRE (vancomycin resistant enterococcus) culture positive 04/29/2019 rectal swab+ Pertinent History: No history of ST services documented in [facility] or care everywhere. This Admission: 10/16/2023: Clinical bedside swallowing evaluation completed with recommendations for strict NPO. 10/19/2023: Ice chip protocol initiated. 10/21/2023: Modified barium swallow study (MBS) completed with the following results: Impairments of the oral and pharyngeal stage of the swallow resulted in single episode of transient penetration with thin liquid. This is considered within functional limits. No penetration observed with mildly-thick liquid, moderately-thick liquid, puree, solid. No aspiration identified during today's study. Overall, the pt presents with moderate oral dysphagia (worsened by lack of dentition), mild pharyngealdysphagia. He is at mild risk for aspiration 2/2 mentation and dysphagia. Recommend initiating a minced & moist (5) diet and thin (0) liquids with medication administered whole or crushed with puree. Recommend 1:[address] will continue to follow. This Date: Vitals: Date: 10/22/2023 WBC: 14.9 Temp: Temp: 98 ??F (36.7 ??C) O2: O2 L/M: 1 $ O2 DEVICE: Nasal Cannula $ Lung Sounds: General Anterior Breath Sounds: DiminishedRespiratory (WDL): Exceptions to WDL S: Pt sitting upright in bed. Agreeable to ST visit. He is oriented x4 this date. States he dislikes his current diet. O: Education provided to the pt re: results of MBS completed 10/21 and reasoning for current diet modifications. The pt verbalized understanding. I asked the pt if he has dentures as lack of dentitiondid appear to be at least in part impacting oral phase of the swallow. The pt stated he does have an upper plate and lower partial. I located pt's dentures in his belongings, cleaned dentures, and assisted pt with placing in oral cavity. The pt was observed with trials of thin liquid via straw, puree, and regular solid. Oral phase revealed adequate labial seal around straw, increased AP transit time, and prolonged/mildly disorganized mastication of dry solid with suspected decreased bolus formation. Suspect this was impacted by xerostomia as well. Pt was able to clear dry solid with tsp of puree. No overt clinical signs of aspiration observed across consistencies assessed. Pt with improvement in mentation, level of alertness, and oral dysphagia. Recommend upgrading to an easy to chew (EC7) diet and continuing thin (0) liquids with medication administered whole or crushed with puree as tolerated. Recommend adherence to swallowing strategies. ST will continue to follow. Patient/Caregiver goals: None stated Assessment: Primary Diagnostic Impression - Oral: Dysphagia;Mild Primary Diagnostic Impression - Pharyngeal: Dysphagia;Mild Risk For Aspiration: Mild AMBRIZ Assessment: MASA Score: 168 Dysphagia Severity Level: Mild (168 - 177) Risk for Aspiration: Mild (149 -169) Risk of aspiration is reduced with the use of diet modification/compensatory strategies. Compensatory Swallowing Strategies: 90 Degrees elevation for all oral intake;Small bites/sips;Eat/Feed slowly;Alternate solids and liquids;Feed patient only when alert;Periodic supervision with meals Results discussed with: Results discussed with:: Patient;Nursing Recommend: Diet Solids Recommendation: Easy to Chew (EC7)/Mechanical Soft Diet Liquids Recommendation: Thin/ Thin (0) Recommended Form of Meds: Whole;Crushed;With puree Risk For Aspiration: Mild Strategies Include: Compensatory Swallowing Strategies: 90 Degrees elevation for all oral intake;Small bites/sips;Eat/Feed slowly;Alternate solids and liquids;Feed patient only when alert;Periodic supervision with meals Follow Up: Recommendations: Dysphagia Treatment Follow Up: Speech therapy to follow. Please refer to Care Plan. Education: Educated patient and family on the following:Results of MBS; Diet/Liquid Recommendation; Goals of Care PPE: PPE worn by staff: gloves If this is the last Speech Therapy visit, this serves as the discharge summary. Thank you for this referral. Enid Wynne MA,JM-LOCKER ATTENDANT 10/22/2023 9:10 AM [id number] * Yanira Macias MD - 10/22/2023 8:57 AM CDT Neurology Progress Note Patient Name José Miguel Keys Days of Admission: 10 Reason for Visit Mental status changes Clinical Course/New Symptoms Patient is a 72 year old male with a history of atrial fibrillation, on Eliquis,CHF, COPD, CKD, coronary artery disease, diabetes,previous DVT, VALENTINA on BiPAP at night who was transferred to our facility secondary to sepsis/ left thigh cellulitis. Rapid response called 10/16/2023 due to increased respiratory distress and mental status changes. 0.4mg narcan given as total of 60mg oxycodone has been given during the last 24 hours. ABG obtained. PH 7.31, CO2 61, HCO3 30.7. CT brain did not show acuteprocess. Mental status continues to improve Awake and follows commands Data Reviewed CT brain without acute process Ammonia level 26 EEG without discharges Objective Patient Vitals for the past 24 hrs: Temp Pulse Resp BP SpO2 O2 % (FiO2) 10/22/23 0837 -- 104 -- -- -- -- 10/22/23 0812 98 ??F (36.7 ??C) 80 25 165/95 99 % -- 10/22/23 0437 98.1 ??F (36.7 ??C) 98 28 129/90 99 % -- 10/22/23 0258 -- 75 21 -- 97 % -- 10/22/23 0217 -- 82 16 -- 100 % -- 10/22/23 0000 98.2 ??F (36.8 ??C) 75 19 128/87 100 % 30 % 10/21/23 2227 -- -- -- -- 99 % 30 % 10/21/23 210 -- 82 20 -- 99 % -- 10/21/231999 98.2 ??F (36.8 ??C) 92 22 158/87 99 % -- 10/21/23 1800 -- 96 19 168/92 97 % -- 10/21/23 1700 -- 88 22 -- 99 % -- 10/21/23 1600 98.2 ??F (36.8 ??C) 90 -- (!) 173/104 100 % -- 10/21/23 1400 -- 81 -- 160/95 99 % -- 10/21/23 1200 -- 77 24 145/84 98 % -- Labs: Recent Labs Component Name 10/22/23 0331 10/21/23 0341 10/20/23 0353 WBC 14.9* 14.3* 14.4* HGB 11.6* 11.9* 12.8* HCT 36.8* 38.0* 40.2 PLTCOUNT 164 151 176 Recent Labs Component Name 10/22/23 0331 10/21/23 0341 10/20/23 1534 10/19/23 1639 10/19/23 0336 10/18/23 0745 10/17/23 1421 10/17/23 0336 SODIUM 144 148* 153* - 156* 153* - 146* POTASSIUM 3.0* 3.1* 3.0* - 3.3* 3.7 - 5.6* CHLORIDE 115* 119* 119* - 120* 113* - 115* CO2 23 23 27 - 27 28 - 20* BUN 29* 37* 42* - 63* 81* - 89* CREATININE 1.27* 1.41* 1.66* - 1.83* 2.34* - 2.51* GLUCOSE 118* 132* 138* - 120* 152* - 107* CALCIUM 8.2* 8.3* 8.7 - 9.3 9.5 - 9.0 ALBUMIN 2.4* 2.4* 2.5* - 2.5* 2.5* - 2.5* ALKPHOS - - - - 80 81 - 73 ALT - - - - 38 45 - 53 AST - - - - 31 32 - 57* TBIL - - - - 0.8 1.1 - 0.5 TPROT - - - - 6.8 6.8 - 7.1 EGFR 59* 52* 43* - 38* 28* - 26* - = values in this interval not displayed. Recent Labs Component Name 08/20/20 0000 CHOL 150 TRIG 73 HDL 45 Recent Labs Component Name 10/12/23 0503 03/08/23 1349 08/10/22 1259 INR 1.2* 1.0 1.1 I have reviewed chart and the pertinent images and studies are personally reviewed Past Medical History: Diagnosis Date Actinic keratosis Arthritis Asthma (HCC) Atrial fibrillation, chronic (HCC) Basal cell carcinoma CAD (coronary artery disease) Clotting disorder (HCC) Colitis COPD (chronic obstructive pulmonary disease) (HCC) Diabetes (HCC) DVT (deep venous thrombosis) (HCC) Dyslipidemia Eczema GERD (gastroesophageal reflux disease) Heart attack (HCC) High blood pressure Hx of blood clots Keloid Kidney disease Lentigo maligna melanoma (HCC) MRSA (methicillin resistant staph aureus) culture positive 07/29/2017; 02/04/19; 04/29/2019 07/29/17-Disc- tissue culture MRSA; R hip; nasal swab+ Obstructive sleep apnea VALENTINA (obstructive sleep apnea) Other cirrhosis of liver (HCC) Peripheral neuropathy Psoriasis S/P PICC central line placement 02/13/2019 H VAT R basilic Seizures (HCC) Squamous cell carcinoma VRE (vancomycin resistant enterococcus) culture positive 04/29/2019 rectal swab+ 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 Tobramycin Eye Itching red around the eyes, puffy, itchy Family History Problem Relation Name Age of Onset CAD (Coronary Artery Disease) Mother age 65 Cirrhosis Father Cancer - Breast Neg Hx CVA Neg Hx Hemophilia Neg Hx Cancer - Other Neg Hx Eczema Neg Hx Psoriasis Neg Hx Cancer - Skin, Non Melanoma Neg Hx Cancer - Skin, Melanoma Neg Hx Social History Socioeconomic History Marital status: Spouse name: Not on file Number of children: Not on file Years of education: Not on file Highest education level: Not on file Occupational History Not on file Tobacco Use Smoking status: Former Types: Cigarettes Quit date: 06/06/1981 Years since quittin.4 Smokeless tobacco: Never Vaping Use Vaping Use: Never used Substance and Sexual Activity Alcohol use: No Drug use: No Sexual activity: Not on file Other Topics Concern Not on file Social History Narrative Merged History Encounter [place] war Social Determinants of Health Financial Resource Strain: Low Risk (10/14/2023) Overall Financial Resource Strain (CARDIA) Difficulty of Paying Living Expenses: Not hard at all Food Insecurity: No Food Insecurity (10/14/2023) Hunger Vital Sign Worried About Running Out of Food in the Last Year: Never true Ran Out of Food in the Last Year: Never true Transportation Needs: No Transportation Needs (10/14/2023) PRAPARE - Transportation Lack of Transportation (Medical): No Lack of Transportation (Non-Medical): No Stress: No Stress Concern Present (10/14/2023) [employer] - Occupational Stress Questionnaire Feeling of Stress : Only a little Housing Stability: Low Risk (10/14/2023) Housing Stability Vital Sign Unable to Pay for Housing in the Last Year: No Number of Places Lived in the Last Year: 1 Unstable Housing in the Last Year: No MEDICATIONS FOR CURRENT ENCOUNTER: SCHEDULED MEDICATIONS: albuterol-ipratropium (Duo-Neb) nebulizer solution 3 mL, Inhalation, q6h apixaban (Eliquis) tablet 5 mg, Oral, BID aspirin chew tablet 81 mg, Oral, QDAY cefTRIAXone (Rocephin) 2,000 mg in 0.9% NaCl IV 50 mL IVPB, Intravenous, q24h docusate sodium (Colace) capsule 100 mg, Oral, BID doxycycline monohydrate capsule 100 mg, Oral, QDAY insulin aspart (NovoLOG) pen 0-12 Units, Subcutaneous, 4X/day - AC & HS metoprolol tartrate IR (Lopressor) tablet 25 mg, Oral, BID pantoprazole (Protonix) injection 40 mg, Intravenous, QDAY potassium phosphate 30 mmol in dextrose 5 % 260 mL bolus, Intravenous, Once rifAXIMin (Xifaxan) tablet 550 mg, Oral, BID venlafaxine (Effexor) tablet 37.5 mg, Oral, QDAY [COMPLETED] potassium chloride 40 mEq in 270 mL bolus, Intravenous, Once CONTINUOUS MEDICATIONS: 0.9% NaCl flush bag, Intravenous, CONTINUOUS PRN dextrose 5 % infusion, Intravenous, Continuous PRN MEDICATIONS: Or Or 0.9% NaCl flush bag, Intravenous, CONTINUOUS PRN acetaminophen (Tylenol) tablet 1,000 mg, Oral, q6h PRN bisacodyl (Dulcolax) suppository 10 mg, Rectal, QDAY PRN dextrose 10 % IV bolus, Intravenous, PRN dextrose 10 % IV bolus, Intravenous, PRN glucagon (Glucagen) injection 1 mg, Subcutaneous, PRN glucose (Diabetic Use) oral gel, Oral, PRN morphine injection 2 mg, Intravenous, q4h PRN ondansetron (Zofran) injection 4 mg, Intravenous, q4h PRN senna (Senokot) tablet 8.6 mg, Oral, BID PRN Physical Exam General appearance: well developed, in no apparent distress Head: Atraumatic, no obvious abnormality Neck: Normal carotid pulses, no bruits CVS: S1 S2 heard. No murmurs or gallop heard. Resp: Air entry is equal bilaterally without evidence of crackles or rhonchi. Abd: Non tender, non distended and no evidence of organomegaly. Ext: Distal pulses are preserved, no edema Psychiatric: no depression, no anxiety Skin: No rashes, no change of color Neuro Exam: Mental Status: More awake, follows simple commands Speech: has BiPAP on, nonverbal Cranial Nerves: 1. (Cranial Nr 2) Fundii - Not able to test, pupil reactive to light 2. (Cranial Nr 3,4,6) Extra Ocular Movements - Intact 3. (Cranial Nr 5) Facial sensation - Equal Bilaterally 4. (Cranial Nr 7) Facial expression - No Facial Asymmetry 5. (Cranial Nr 8) Hearing - Intact to conversation and finger rub 6. (Cranial Nr 9, 10) Voice - No change in quality or pitch Palate - Elevates equally Gag - Present 7. (Cranial Nr 11) Elevate shoulder - Bilaterally without paralysis 8. (Cranial Nr 12) Tongue - No deviation or wasting Motor: Has spontaneous movements in all extremities Sensation: withdrawal to pain Reflexes: DTRs Symmetric 1+ with plantar responses both sides Coordination/Cerebellar: not able to test Gait: not tested. Assessment: 1. Mental status changes Suspect metabolic encephalopathy secondary to infection and respiratory distress Neurologically would like to rule out nonconvulsive seizure and embolic strokes, but both diagnosesare less likely CT brain without acute process 2. Septic shock Left thigh cellulitis Group G strep bacteremia 3. 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 RADHA on CKD 5. History of MICHAUD liver cirrhosis 6. COPD Plan: 1. EEG reviewed without discharges 2. Continue Eliquis and low dose of ASA 3. Pulmonology follows On BiPAP at night 4. On Ceftriaxone and Doxycycline 5. Ammonia level checked which is normal S/p Lactulose 6. Hold off MRI brain since mental status has been better 7. Follow up with exam Yanira Macias MD * Celso Denson MD - 10/22/2023 7:32 AM CDT Images from the original note were not included. Nephrology Progress Note Admit Date: 10/12/2023 4:19 AM Hospital Day: 10 Assessment: Acute kidney injury - ATN secondary shock status and hypotension + ELLIOTT - SCr 2.9 mg/dL on 10/12 - SCr 1.8 mg/dL 08/2022 - SCr baseline 1.5 mg/dL since 2019 Hyperkalemia Metabolic acidosis Sepsis Possible lower extremity cellulitis Shock status-possibly sepsis Acute hypoxic respiratory failure COPD Hx AFib Hx CHF Hx cirrhosis secondary to MICHAUD Full Code *PCP is Provider Unknown* Recommendations: Azotemia better today Replace K Phos IV Na improving Continue 5% dextrose IV for now Holding Lasix for now Maintain Cabral catheter Checked urine indices Antibiotics per ID Gabapentin held Surgical team following Avoid MAP < 65 Avoid further IV contrast and NSAIDs Case d/w RN Reason for Consult Acute kidney injury Clinical Course 10/12/2023: Admitted 10/12: Renal consult 10/13: Urine output 760 cc in last 24 hours. Off pressors. On low-rate LR 10/14: Somnolent. Cabral removed early this morning. 10/15: Cabral replaced due to continued urinary retention. 10/16: TONGUE AND QUARTER STITCHER called overnight due to AMS. Given narcan, placed on BiPAP, transferred to step down for closer monitoring. Remains on narcan drip this morning. 10/17: remains lethargic. 10/18: More awake today, though still confused 10/19: More awake and interactive. 10/20: Awake and conversant, less confused. 10/21: ICU; resting in bed New Symptoms Complains of back and belly pain as well as diarrhea. Exam Gen: awake, cooperative, NAD Heart: regular rhythm, S1S2, without rub Lungs: breath sounds diminished B; no wheezes or crackles; no distress at rest on oxygen via NC Abd: soft without mass, non-tender, with bowel sounds, FMS Ext: no cyanosis, trace edema, heel protectors : Marianna present Data Vitals: 10/22/23 0000 10/22/23 0217 10/22/23 0258 10/22/23436 BP: 128/87 129/90 Pulse: 75 82 75 98 Resp: Temp: 98.2 ??F (36.8 ??C) 98.1 ??F (36.7 ??C) SpO2: 100% 100% 97% 99% Weight: Height: Supplemental Oxygen (last filed value): O2 L/M: 1 (05/18/24 0437) Temp (30hrs) Max:98.3 ??F (36.8 ??C) Intake/Output Summary (Last 24 hours) at 10/22/2023 0732 Last data filed at 10/22/2023 0713 Gross per 24 hour Intake 3558.5 ml Output 2250 ml Net 1308.5 ml Admission weight: Weight: 111.1 kg (244 lb 14.9 oz) (10/12/23 0507) Most recent weight: Weight: 111.1 kg (245 lb) (10/14/23 0643) Recent Labs Component Name 10/22/23 0331 10/21/23 0341 10/20/23 1534 SODIUM 144 148* 153* POTASSIUM 3.0* 3.1* 3.0* CHLORIDE 115* 119* 119* CO2 BUN 29* 37* 42* CREATININE 1.27* 1.41* 1.66* GLUCOSE 118* 132* 138* CALCIUM 8.2* 8.3* 8.7 ALBUMIN 2.4* 2.4* 2.5* PHOS 2.2* 2.4 2.4 Recent Labs Component Name 10/22/23 0331 10/21/23 0341 10/20/23 1534 EGFR 59* 52* 43* Recent Labs Component Name 10/22/23 0331 10/21/23 0341 10/20/23 0353 MAGNESIUM 1.9 2.1 2.4 Recent Labs Component Name 10/22/23 0331 10/21/23 0341 10/20/23 0353 WBC 14.9* 14.3* 14.4* HGB 11.6* 11.9* 12.8* HCT 36.8* 38.0* 40.2 PLTCOUNT 164 151 176 Recent Labs Component Name 10/15/23 0444 10/14/23 0337 10/13/23 1153 CK 440* 786* 905* Recent Labs Component Name 10/13/23 142 COLORUA Celia* CLARITYUA Cloudy* SPECGRAVUA 1.028 PHUA 5.0 PROTEINUA 2+* BLOODUA 3+* LEUKOCYTEUA 2+* NITRITEUA Negative GLUCOSEUA Negative KETONEUA Negative BILIRUBINUA Negative UROBILINUA Negative WBCUA >100* RBCUA >100* BACTUA None Seen Recent Labs Component Name 10/13/23 1424 09/01/17 0016 07/15/17 2358 07/15/17 0018 SODIUMUR <20 - - - POTASSIUMUR 69.3 - - - CHLORIDEUR <20.0 - - - CREATININEUR - 89 83 66 MEDICATIONS FOR CURRENT ENCOUNTER: SCHEDULED MEDICATIONS: albuterol-ipratropium (Duo-Neb) nebulizer solution 3 mL, Inhalation, q6h apixaban (Eliquis) tablet 5 mg, Enteral Tube, BID aspirin chew tablet 81 mg, Enteral Tube, QDAY cefTRIAXone (Rocephin) 2,000 mg in 0.9% NaCl IV 50 mL IVPB, Intravenous, q24h docusate sodium (Colace) solution 100 mg, Enteral Tube, BID doxycycline monohydrate capsule 100 mg, Oral, QDAY insulin aspart (NovoLOG) pen 0-12 Units, Subcutaneous, 4X/day - AC & HS metoprolol tartrate IR (Lopressor) tablet 25 mg, Enteral Tube, BID pantoprazole (Protonix) injection 40 mg, Intravenous, QDAY potassium chloride 20 mEq in 100 mL SW bolus, Intravenous, Once potassium chloride ER (Klor-Con M) tablet 40 mEq, Oral, Once rifAXIMin (Xifaxan) tablet 550 mg, Enteral Tube, BID venlafaxine (Effexor) tablet 37.5 mg, Enteral Tube, QDAY [COMPLETED] potassium chloride 40 mEq in 270 mL bolus, Intravenous, Once CONTINUOUS MEDICATIONS: 0.9% NaCl flush bag, Intravenous, CONTINUOUS PRN dextrose 5 % infusion, Intravenous, Continuous PRN MEDICATIONS: Or Or 0.9% NaCl flush bag, Intravenous, CONTINUOUS PRN acetaminophen (Tylenol) tablet 1,000 mg, Enteral Tube, q6h PRN bisacodyl (Dulcolax) suppository 10 mg, Rectal, QDAY PRN dextrose 10 % IV bolus, Intravenous, PRN dextrose 10 % IV bolus, Intravenous, PRN glucagon (Glucagen) injection 1 mg, Subcutaneous, PRN glucose (Diabetic Use) oral gel, Oral, PRN ondansetron (Zofran) injection 4 mg, Intravenous, q4h PRN senna (Senokot) tablet 8.6 mg, Enteral Tube, BID PRN * Marcelo Palencia RCP - 10/22/2023 3:14 AM CDT Pt wanted bipap off did not want it back * Marcelo Palencia RCP - 10/21/2023 11:08 PM CDT Problem: Impaired Gas Exchange Goal: Resp rate/effort will be within specified limits Description: To maintain oxygen within normal parameters. RT to monitor. Outcome: Progressing José Miguel continues on scheduled nebulizer tx. Lungs sound diminished this shift. Will continue to monitor and wean as able. * Jayme Rodriguez MD - 10/21/2023 5:08 PM CDT Internal Medicine Progress Note -Hospitalist Admit Date: 10/12/2023 4:19 AM Hospital Day: 9 Clinical Course: 72 independent living, history of AFib, CHF, VALENTINA on BiPAP at nighttime, COPD, CKD was admitted for sepsis and lower extremity cellulitis Started on IV antibiotics Course complicated by significant confusion requiring Neurology consultation. Also noted severe hypernatremia. NG was placed. 10/19 mentally better 10/20 NG was pulled out, passed swallow eval, oriented New Symptoms: More awake able to assist himself by eating able to answer questions more appropriately he said that he has some back pain but otherwise no acute issues Objective: Vitals: 10/21/23 1200 10/21/23 1400 10/21/23 1600 10/21/23 1700 BP: 145/84 160/95 (!) 173/104 Pulse: 77 81 90 88 Resp: Temp: 98.2 ??F (36.8 ??C) SpO2: 98% 99% 100% 99% Weight: Height: General appearance: Awake responsive, able to communicate and ask the right questions Left pupil is bigger than right Heart: normal rate Lungs: breath sounds normal and symmetric; no rales or wheezes Abdomen: soft without mass, non-tender, with normal bowel sounds Extremities: no clubbing, cyanosis or edema, chronic venous insufficiency changes on bilateral calves. Left thigh is no longer red and tender. Intake/Output Summary (Last 24 hours) at 10/21/2023 1708 Last data filed at 10/21/2023 1304 Gross per 24 hour Intake 6841.95 ml Output 2650 ml Net 4191.95 ml Current Medications: MEDICATIONS FOR CURRENT ENCOUNTER: SCHEDULED MEDICATIONS: albuterol-ipratropium (Duo-Neb) nebulizer solution 3 mL, Inhalation, q6h apixaban (Eliquis) tablet 5 mg, Enteral Tube, BID aspirin chew tablet 81 mg, Enteral Tube, QDAY cefTRIAXone (Rocephin) 2,000 mg in 0.9% NaCl IV 50 mL IVPB, Intravenous, q24h docusate sodium (Colace) solution 100 mg, Enteral Tube, BID doxycycline monohydrate capsule 100 mg, Oral, QDAY insulin aspart (NovoLOG) pen 0-12 Units, Subcutaneous, 4X/day - AC & HS metoprolol tartrate IR (Lopressor) tablet 25 mg, Enteral Tube, BID pantoprazole (Protonix) injection 40 mg, Intravenous, QDAY rifAXIMin (Xifaxan) tablet 550 mg, Enteral Tube, BID venlafaxine (Effexor) tablet 37.5 mg, Enteral Tube, QDAY [COMPLETED] potassium chloride 40 mEq in 270 mL bolus, Intravenous, Once [COMPLETED] potassium chloride 40 mEq in 270 mL bolus, Intravenous, Once CONTINUOUS MEDICATIONS: 0.9% NaCl flush bag, Intravenous, CONTINUOUS PRN dextrose 5 % infusion, Intravenous, Continuous PRN MEDICATIONS: Or Or 0.9% NaCl flush bag, Intravenous, CONTINUOUS PRN acetaminophen (Tylenol) tablet 1,000 mg, Enteral Tube, q6h PRN bisacodyl (Dulcolax) suppository 10 mg, Rectal, QDAY PRN dextrose 10 % IV bolus, Intravenous, PRN dextrose 10 % IV bolus, Intravenous, PRN glucagon (Glucagen) injection 1 mg, Subcutaneous, PRN glucose (Diabetic Use) oral gel, Oral, PRN ondansetron (Zofran) injection 4 mg, Intravenous, q4h PRN senna (Senokot) tablet 8.6 mg, Enteral Tube, BID PRN Data: Recent Labs Component Name 10/21/23 0341 10/20/23 1534 10/20/23 0353 SODIUM 148* 153* 154* POTASSIUM 3.1* 3.0* 2.9* BUN 37* 42* 49* CREATININE 1.41* 1.66* 1.67* GLUCOSE 132* 138* 138* Recent Labs Component Name 10/21/23 0341 10/20/23 0353 10/19/23 0336 WBC 14.3* 14.4* 18.0* HGB 11.9* 12.8* 12.3* HCT 38.0* 40.2 38.8 PLTCOUNT [address] FEMUR LEFT WO CONTRAST Result Date: 10/12/2023 IMPRESSION: There is a moderate cellulitis in the skin and subcutaneous soft tissues along the medial aspect of the left thigh. No gas is seen in the soft tissues. No drainable abscess collection is seen. No evidence for inflammatory change in the fascial planes of the left thigh. 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 > Interpreting Provider: Jose Alberto Kemp MD on 10/12/2023 11:59 AM XR CHEST 1VW PORTABLE Result Date: 10/12/2023 IMPRESSION: Tubes and lines in adequate position without a pneumothorax Oral and parenchymal changeat the left base slightly progressive in the interval > Interpreting Provider: Alberto Atwood MDon 10/12/2023 8:23 AM Assessment and Plan Continue IV antibiotics: Recommended ceftriaxone for another 2-3 days to complete 2 weeks treatment He looks to have a turned around, improved significantly and looking for recovery He will need physical therapy and possibly placement planning for physical therapy before he can return home 1. Altered mental status Likely metabolic encephalopathy secondary to acute infection and hypernatremia Started to improve gradually He is more oriented 10/19 and able to answer questions appropriately Workup ongoing with Neurology Initially a rapid response was called due to altered mental status thought to be hypercapnia related to opioids started on Narcan drip and placed on BiPAP for acidosis also started on lactulose and rifaximin (lactulose stopped due to significant diarrhea) 2. Septic shock presented on admission IV fluids, IV antibiotics and resolved Ceftriaxone 3. Left thigh cellulitis looks to be improving almost erythema has gone Continue with IV antibiotic CT scan showed no soft tissue gas and no abscess Surgery and Infectious Disease managing Continue IV antibiotics 4. Group G strep bacteremia Secondary to above Continue on ceftriaxone likely until 10/23 Noted chronic suppressive antibiotics at home. 5. Lactic acidosis resolved 6. Hypernatremia On D5 I will start free water flushes 300 q.4 hours and will repeat labs in the morning He looks to be much better 7. Difficulty swallowing Likely secondary to altered mental status. I am expecting that this will resolved will pull NG tube to do speech evaluation NG removed 10/20 started on diet 8. Acute on chronic kidney disease likely ATN in the settings of shock also received contrast Improving 9. Acute on chronic hypoxemic respiratory failure looks to be much better Extubated October 11 Currently on nasal cannula 10. History of COPD no wheezing 11. History of CHF monitor fluid status 12. History of atrial fibrillation on Eliquis and metoprolol 13. Michaud cirrhosis continue rifaximin will stop lactulose Patient's Functional Baseline prior to admit: independent Discharge Planning to Next Site of Care: Most likely to need some kind of rehabilitation Anticipated discharge date: 10/23 READMISSION RISK SCORE is 16 at 5:08 PM 10/21/2023. DVT prophylaxis: Eliquis Full Code Jayme Rodriguez MD 10/21/2023 5:08 PM Portions of this note may be dictated using voice recognition software. Variances in spelling and vocabulary are possible and unintentional. Not all errors are caught/corrected. Please notify the author if any discrepancies are noted or if the meaning of any statement is not clear. These grammatical oversights have no impact on the medical care provided to the patient. Time in which this note is created does not match the time of rounding/clinical exam. * Bell Gilliam, ASHWINI/LD - 10/21/2023 2:26 PM CDT Brief Synopsis: Patient is at nutrition risk but does not meet malnutrition criteria. Nutrition Plan: Current diet order: Minced & Moist (5) / Mech Altered (DYS2) Current supplement order: ensure 1.5 tid (350 kcal 20 g protein each) Replace lytes Bi weekly weights Tuesday and Recommendations to Physician: if po intake does not improve initiate tube feeding Discharge Needs: pending clinical course Nutrition Reassessment Changes in condition/Patient Summary: pt sp mbs today passed started on minced moist Will add ensure 1.5 tid with meals Encourage po Assessment Med/Surg History and Clinical Diagnoses: Fluid and electrolyte disorder: hyperkalemia requiring further monitoring Thrombocytopenia Thrombocytopenia requiring further monitoring Hypoalbuminemia requiring further monitoring Chronic kidney disease: Chronic Kidney Disease, Unspecified Cardiac arrhythmia: Atrial fibrillation, unspecified Congestive Heart Failure Shock: Severe sepsis with shock Obesity Patient receiving mechanical ventilation Weight Review Height: 180.3 cm (5' 10.98 ) Last Weight: 111.1 kg (245 lb) (10/14/23 0643) Last Weight Method : Bed scale (10/14/23 0643) [place] Body Weight IBW/lb (Calculated) Male: 171.904 BMI: Body mass index is 34.19 kg/m??. BMI Range: Obese Class 1 Weight Assessment: no ne wt Wt Readings from Last 10 Encounters: 10/14/23 111.1 kg (245 lb) 05/12/23 111.1 kg (245 lb) 03/21/23 110.7 kg (244 lb) 10/07/22 120.7 kg (266 lb) 08/23/22 120.7 kg (266 lb) 08/23/22 120.7 kg (266 lb) 02/23/22 120.2 kg (265 lb) 08/17/21 121.1 kg (267 lb) 12/30/20 114.8 kg (253 lb) 08/26/20 114.9 kg (253 lb 6.4 oz) Patient Vitals for the past 336 hrs: Weight Weight Method 10/14/23 0643 111.1 kg (245 lb) Bed scale 10/12/23 0507 111.1 kg (244 lb 14.9 oz) -- PO INTAKE Current diet order: Minced & Moist (5) / Mech Altered (DYS2) Food Allergies: Other (Comments) (all Peppers) Last % Meal Taken: 0 % (10/15/23 1845) Current supplement order: ensure 1.5 tid (350 kcal 20 g protein each) Supplement(s) Consumed- Last 48 hours None PO Intake Assessment: pt had been npo x 9 days Diet adv today minced moist no po yet GI Concerns: (10/19 + bm, ng removed) Chewing/Swallowing: (sp mbs speech recommend minced moist) Skin/Wound: + edema Last Skin Condition: Dry;Bruising;Swollen;Cellulitis (10/21/23 1200) Pain affecting intake: No Estimated Needs: KCAL: [id number] based on 15-20 kcal/kg actual wt Protein (g): 94 based on 1.2 g/kg ibw Fluid (ml): 1 ml/kcal Needs based on: Kcal/kg- (Comment) Recommended Access Route: TF Labs: Recent Labs Component Name 10/21/23 0341 10/19/23 0336 SODIUM 148* 156* POTASSIUM 3.1* 3.3* CHLORIDE 119* 120* CO2 23 27 BUN 37* 63* CREATININE 1.41* 1.83* GLUCOSE 132* 120* CALCIUM 8.3* 9.3 ALBUMIN 2.4* 2.5* ALKPHOS - 80 ALT - 38 AST - 31 TBIL - 0.8 TPROT - 6.8 EGFR 52* 38* - = values in this interval not displayed. Recent Labs Component Name 10/21/23 0341 10/20/23 1534 10/20/23 0353 PHOS 2.4 2.4 1.7* Recent Labs Component Name 10/13/23 0346 02/03/19 0106 07/14/17 2212 HGBA1C 6.5* 5.8 6.3 Patient Vitals for the past 30 hrs: Glucose Bedside (mg/dL) 10/20/23 2143 126 mg/dL 10/20/23 1712 139 mg/dL 10/20/23 1100 141 mg/dL PERTINENT MEDICATIONS FOR CURRENT ENCOUNTER: SCHEDULED MEDICATIONS: albuterol-ipratropium (Duo-Neb) nebulizer solution 3 mL, Inhalation, q6h apixaban (Eliquis) tablet 5 mg, Enteral Tube, BID aspirin chew tablet 81 mg, Enteral Tube, QDAY cefTRIAXone (Rocephin) 2,000 mg in 0.9% NaCl IV 50 mL IVPB, Intravenous, q24h docusate sodium (Colace) solution 100 mg, Enteral Tube, BID doxycycline monohydrate capsule 100 mg, Oral, QDAY insulin aspart (NovoLOG) pen 0-12 Units, Subcutaneous, 4X/day - AC & HS metoprolol tartrate IR (Lopressor) tablet 25 mg, Enteral Tube, BID pantoprazole (Protonix) injection 40 mg, Intravenous, QDAY rifAXIMin (Xifaxan) tablet 550 mg, Enteral Tube, BID venlafaxine (Effexor) tablet 37.5 mg, Enteral Tube, QDAY [COMPLETED] potassium chloride 40 mEq in 270 mL bolus, Intravenous, Once [COMPLETED] potassium chloride 40 mEq in 270 mL bolus, Intravenous, Once ~~~~~~~~~~~~~~~~~~~~~~~~~~~~~~~~ Nutrition Diagnostic Statement: Inadequate oral intake related to:: decreased ability to consume ortolerate food and/or fluids due to illness as evidenced by:: oral intake insufficient to meet estimated requirements Nutrition Intervention: Meals and snacks:;Medical Food Supplements:;Collaboration with other providers Education Provided: Not appropriate (10/12/23 1100) Recommendation/Plan: Nutrition recommendation: agree with current nutrition order Monitoring: Po intake adequacy Ons intake Wt/fluid Skin integrity Plan of care Evaluation: Nutrition Goal: Intake will be improved to 75% or greater of meals/snacks Nutrition Goal Timeframe: Throughout stay * Bell Gilliam RD/SALVADOR - 10/21/2023 2:26 PM CDT Problem: Oral Intake: Inadequate oral intake Goal: Total intake will meet estimated nutrient needs Outcome: Progressing Diet adv today post mbs * Elsa Hastings RN - 10/21/2023 2:03 PM CDT Care Coordination Progress Note Anticipated level of care at discharge: Care Home - Skilled Facility, Home Health Care Comment: see progress sect for all snf referrals made: Anticipated level of care provider: None: Anticipated Discharge Date: 10/28/23: Discharge Plan: Patient remains hospitalized at this time, and discharge is pending hospital course. Discharge plans are to transfer to group home when medically stable for discharge. CM will continue to follow for discharge planning needs. Orientation Level: Oriented X4: Family Support (Name and Phone): Extended Emergency Contact Information Primary Emergency Contact: Trinity Keys Address: [address] [place] [address] [place] [address] [facility] Relation: Spouse City Manager needed? No Transportation at Discharge: Ambulance: READMISSION RISK SCORE is 16 at 2:03 PM 10/21/2023.: Name: Elsa Hastings RN * Beny Rubio RN - 10/21/2023 9:50 AM CDT Pt to radiology for MBS via stretcher on monitor with RN * Yanira Macias MD - 10/21/2023 9:48 AM CDT Neurology Progress Note Patient Name José Miguel Keys Days of Admission: 9 Reason for Visit Mental status changes Clinical Course/New Symptoms Patient is a 72 year old male with a history of atrial fibrillation, on Eliquis,CHF, COPD, CKD, coronary artery disease, diabetes,previous DVT, VALENTINA on BiPAP at night who was transferred to our facility secondary to sepsis/ left thigh cellulitis. Rapid response called 10/16/2023 due to increased respiratory distress and mental status changes. 0.4mg narcan given as total of 60mg oxycodone has been given during the last 24 hours. ABG obtained. PH 7.31, CO2 61, HCO3 30.7. CT brain did not show acuteprocess. Mental status continues to improve Awake and follows commands Data Reviewed CT brain without acute process Ammonia level 26 EEG without discharges Objective Patient Vitals for the past 24 hrs: Temp Pulse Resp BP SpO2 O2 % (FiO2) 10/21/23 1200 -- 77 24 145/84 98 % -- 10/21/23 0826 -- 92 -- 165/97 100 % -- 10/21/23 0825 -- -- -- 165/97 -- -- 10/21/23 0800 98.1 ??F (36.7 ??C) 87 23 (!) 150/101 99 % -- 10/21/23 0747 98.3 ??F (36.8 ??C) -- -- -- -- -- 10/21/23 0427 -- 81 23 -- 100 % -- 10/21/23 0400 98 ??F (36.7 ??C) 87 19 146/90 100 % 30 % 10/21/23 0337 -- 79 -- -- 100 % 30 % 10/21/23 0335 -- 89 26 -- 100 % 30 % 10/21/23 0024 -- 80 -- -- 100 % 30 % 10/21/23 0000 98.2 ??F (36.8 ??C) 82 18 156/99 100 % 30 % 10/20/23 2217 -- 85 -- -- 99 % 30 % 10/20/23 2111 98 ??F (36.7 ??C) 88 22 143/91 98 % -- 10/20/235 -- 86 22 -- 98 % -- 10/20/23 1625 -- 90 22 -- 98 % -- Labs: Recent Labs Component Name 10/21/23 0341 10/20/23 0353 10/19/23 0336 WBC 14.3* 14.4* 18.0* HGB 11.9* 12.8* 12.3* HCT 38.0* 40.2 38.8 PLTCOUNT 151 176 164 Recent Labs Component Name 10/21/23 0341 10/20/23 1534 10/20/23 0353 10/19/23 1639 10/19/23 0336 10/18/23 0745 10/17/23 1421 10/17/23 0336 SODIUM 148* 153* 154* - 156* 153* - 146* POTASSIUM 3.1* 3.0* 2.9* - 3.3* 3.7 - 5.6* CHLORIDE 119* 119* 120* - 120* 113* - 115* CO2 23 27 27 - 27 28 - 20* BUN 37* 42* 49* - 63* 81* - 89* CREATININE 1.41* 1.66* 1.67* - 1.83* 2.34* - 2.51* GLUCOSE 132* 138* 138* - 120* 152* - 107* CALCIUM 8.3* 8.7 9.2 - 9.3 9.5 - 9.0 ALBUMIN 2.4* 2.5* 2.5* - 2.5* 2.5* - 2.5* ALKPHOS - - - - 80 81 - 73 ALT - - - - 38 45 - 53 AST - - - - 31 32 - 57* TBIL - - - - 0.8 1.1 - 0.5 TPROT - - - - 6.8 6.8 - 7.1 EGFR 52* 43* 43* - 38* 28* - 26* - = values in this interval not displayed. Recent Labs Component Name 08/20/20 0000 CHOL 150 TRIG 73 HDL 45 Recent Labs Component Name 10/12/23 0503 03/08/23 1349 08/10/22 1259 INR 1.2* 1.0 1.1 I have reviewed chart and the pertinent images and studies are personally reviewed Past Medical History: Diagnosis Date Actinic keratosis Arthritis Asthma (HCC) Atrial fibrillation, chronic (HCC) Basal cell carcinoma CAD (coronary artery disease) Clotting disorder (HCC) Colitis COPD (chronic obstructive pulmonary disease) (HCC) Diabetes (HCC) DVT (deep venous thrombosis) (HCC) Dyslipidemia Eczema GERD (gastroesophageal reflux disease) Heart attack (HCC) High blood pressure Hx of blood clots Keloid Kidney disease Lentigo maligna melanoma (HCC) MRSA (methicillin resistant staph aureus) culture positive 07/29/2017; 02/04/19; 04/29/2019 07/29/17-Disc- tissue culture MRSA; R hip; nasal swab+ Obstructive sleep apnea VALENTINA (obstructive sleep apnea) Other cirrhosis of liver (HCC) Peripheral neuropathy Psoriasis S/P PICC central line placement 02/13/2019 [facility] VAT R basilic Seizures (HCC) Squamous cell carcinoma VRE (vancomycin resistant enterococcus) culture positive 04/29/2019 rectal swab+ 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 Tobramycin Eye Itching red around the eyes, puffy, itchy Family History Problem Relation Name Age of Onset CAD (Coronary Artery Disease) Mother age 65 Cirrhosis Father Cancer - Breast Neg Hx CVA Neg Hx Hemophilia Neg Hx Cancer - Other Neg Hx Eczema Neg Hx Psoriasis Neg Hx Cancer - Skin, Non Melanoma Neg Hx Cancer - Skin, Melanoma Neg Hx Social History Socioeconomic History Marital status: Spouse name: Not on file Number of children: Not on file Years of education: Not on file Highest education level: Not on file Occupational History Not on file Tobacco Use Smoking status: Former Types: Cigarettes Quit date: 06/06/1981 Years since quittin.4 Smokeless tobacco: Never Vaping Use Vaping Use: Never used Substance and Sexual Activity Alcohol use: No Drug use: No Sexual activity: Not on file Other Topics Concern Not on file Social History Narrative Merged History Encounter [place] war Social Determinants of Health Financial Resource Strain: Low Risk (10/14/2023) Overall Financial Resource Strain (CARDIA) Difficulty of Paying Living Expenses: Not hard at all Food Insecurity: No Food Insecurity (10/14/2023) Hunger Vital Sign Worried About Running Out of Food in the Last Year: Never true Ran Out of Food in the Last Year: Never true Transportation Needs: No Transportation Needs (10/14/2023) PRAPARE - Transportation Lack of Transportation (Medical): No Lack of Transportation (Non-Medical): No Stress: No Stress Concern Present (10/14/2023) [employer] - Occupational Stress Questionnaire Feeling of Stress : Only a little Housing Stability: Low Risk (10/14/2023) Housing Stability Vital Sign Unable to Pay for Housing in the Last Year: No Number of Places Lived in the Last Year: 1 Unstable Housing in the Last Year: No MEDICATIONS FOR CURRENT ENCOUNTER: SCHEDULED MEDICATIONS: albuterol-ipratropium (Duo-Neb) nebulizer solution 3 mL, Inhalation, q6h apixaban (Eliquis) tablet 5 mg, Enteral Tube, BID aspirin chew tablet 81 mg, Enteral Tube, QDAY cefTRIAXone (Rocephin) 2,000 mg in 0.9% NaCl IV 50 mL IVPB, Intravenous, q24h docusate sodium (Colace) solution 100 mg, Enteral Tube, BID doxycycline monohydrate capsule 100 mg, Oral, QDAY insulin aspart (NovoLOG) pen 0-12 Units, Subcutaneous, 4X/day - AC & HS metoprolol tartrate IR (Lopressor) tablet 25 mg, Enteral Tube, BID pantoprazole (Protonix) injection 40 mg, Intravenous, QDAY potassium chloride 40 mEq in 270 mL bolus, Intravenous, Once rifAXIMin (Xifaxan) tablet 550 mg, Enteral Tube, BID venlafaxine (Effexor) tablet 37.5 mg, Enteral Tube, QDAY [COMPLETED] potassium chloride 40 mEq in 270 mL bolus, Intravenous, Once CONTINUOUS MEDICATIONS: 0.9% NaCl flush bag, Intravenous, CONTINUOUS PRN dextrose 5 % infusion, Intravenous, Continuous PRN MEDICATIONS: Or Or 0.9% NaCl flush bag, Intravenous, CONTINUOUS PRN acetaminophen (Tylenol) tablet 1,000 mg, Enteral Tube, q6h PRN bisacodyl (Dulcolax) suppository 10 mg, Rectal, QDAY PRN dextrose 10 % IV bolus, Intravenous, PRN dextrose 10 % IV bolus, Intravenous, PRN glucagon (Glucagen) injection 1 mg, Subcutaneous, PRN glucose (Diabetic Use) oral gel, Oral, PRN ondansetron (Zofran) injection 4 mg, Intravenous, q4h PRN senna (Senokot) tablet 8.6 mg, Enteral Tube, BID PRN Physical Exam General appearance: well developed, in no apparent distress Head: Atraumatic, no obvious abnormality Neck: Normal carotid pulses, no bruits CVS: S1 S2 heard. No murmurs or gallop heard. Resp: Air entry is equal bilaterally without evidence of crackles or rhonchi. Abd: Non tender, non distended and no evidence of organomegaly. Ext: Distal pulses are preserved, no edema Psychiatric: no depression, no anxiety Skin: No rashes, no change of color Neuro Exam: Mental Status: More awake, follows simple commands Speech: has BiPAP on, nonverbal Cranial Nerves: 1. (Cranial Nr 2) Fundii - Not able to test, pupil reactive to light 2. (Cranial Nr 3,4,6) Extra Ocular Movements - Intact 3. (Cranial Nr 5) Facial sensation - Equal Bilaterally 4. (Cranial Nr 7) Facial expression - No Facial Asymmetry 5. (Cranial Nr 8) Hearing - Intact to conversation and finger rub 6. (Cranial Nr 9, 10) Voice - No change in quality or pitch Palate - Elevates equally Gag - Present 7. (Cranial Nr 11) Elevate shoulder - Bilaterally without paralysis 8. (Cranial Nr 12) Tongue - No deviation or wasting Motor: Has spontaneous movements in all extremities Sensation: withdrawal to pain Reflexes: DTRs Symmetric 1+ with plantar responses both sides Coordination/Cerebellar: not able to test Gait: not tested. Assessment: 1. Mental status changes Suspect metabolic encephalopathy secondary to infection and respiratory distress Neurologically would like to rule out nonconvulsive seizure and embolic strokes, but both diagnosesare less likely CT brain without acute process 2. Septic shock Left thigh cellulitis Group G strep bacteremia 3. 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 RADHA on CKD 5. History of MICHAUD liver cirrhosis 6. COPD Plan: 1. EEG reviewed without discharges 2. Continue Eliquis and low dose of ASA 3. Pulmonology follows On BiPAP at night 4. On Ceftriaxone and Doxycycline 5. Ammonia level checked which is normal Continues with Lactulose 6. Hold off MRI brain since mental status has been better 7. Follow up with exam Yanira Macias MD * Enid Kearns, LOCKER ATTENDANT - 10/21/2023 9:45 AM CDT MODIFIED BARIUM SWALLOW STUDY Speech Pathology: José Miguel Keys is a 72 year old male, admitted to facility 07/08 to sepsis of unknown origin. SOB with an increased cough and sputum production, left leg pain and rash. Pt intubated on 10/11 and extubated same day. Past medical history includes: Past Medical History: Diagnosis Date Actinic keratosis Arthritis Asthma (HCC) Atrial fibrillation, chronic (HCC) Basal cell carcinoma CAD (coronary artery disease) Clotting disorder (HCC) Colitis COPD (chronic obstructive pulmonary disease) (HCC) Diabetes (HCC) DVT (deep venous thrombosis) (HCC) Dyslipidemia Eczema GERD (gastroesophageal reflux disease) Heart attack (HCC) High blood pressure Hx of blood clots Keloid Kidney disease Lentigo maligna melanoma (HCC) MRSA (methicillin resistant staph aureus) culture positive 07/29/2017; 02/04/19; 04/29/2019 07/29/17-Disc- tissue culture MRSA; R hip; nasal swab+ Obstructive sleep apnea VALENTINA (obstructive sleep apnea) Other cirrhosis of liver (HCC) Peripheral neuropathy Psoriasis S/P PICC central line placement 02/13/2019 [facility] VAT R basilic Seizures (HCC) Squamous cell carcinoma VRE (vancomycin resistant enterococcus) culture positive 04/29/2019 rectal swab+ Pertinent History: No history of ST services documented in [facility] or care everywhere. This Admission: 10/16/2023: Clinical bedside swallowing evaluation completed with recommendations for strict NPO. 10/19/2023: Ice chip protocol initiated. This Date: The pt was seen for a Modified Barium Swallow Study (MBS). S: Pt sitting upright in chair. Alert and cooperative during visit. O: MBS completed. Please refer to MBS doc flowsheet for full results. The Modified Barium Swallow Study Impairment Profile (MBSimp) protocol was followed for this exam. A-P view was not obtained due to the pt's physical inability to stand independently and safely at this time. The pt was given multiple barium consistencies during the exam, including: thin (0) liquid, mildly-thick (2) liquid, moderately-thick (3) liquid, puree (4), and regular (7) solid consistencies. ORAL STAGE: The oral stage of the swallow revealed diminished labial seal but with adequate oral containment of bolus, impairedbolus formation/control, increased AP transit time, mild incoordination, and moderately extended/mildly disorganized mastication of solid with piecemeal deglutition. Mild oral residue remaining post swallow. INITIATION OF SWALLOW: Pharyngeal swallow initiates at the level of the pyriforms with thinliquid and mildly-thick liquid. Pharyngeal swallow initiates at the level of the vallecula with moderately-thick liquid, puree, solid. PHARYNGEAL STAGE: The pharyngeal stage of the swallow revealed minimally diminished BOT retraction, diminished laryngeal elevation, diminished anterior/superior hyoid movement, and adequate laryngeal vestibule closure. RESULTS: Impairments of the oral and pharyngeal stage of the swallow resulted in single episode of transient penetration with thin liquid. This is considered within functional limits. No penetration observed with mildly-thick liquid, moderately-thick liquid, puree, solid. No aspiration identified during today's study. Overall, the pt presents with moderate oral dysphagia (worsened by lack of dentition), mild pharyngeal dysphagia. He is at mild risk for aspiration 2/2 mentation and dysphagia. Recommend initiating a minced & moist (5) diet and thin (0) liquids with medication administered whole or crushed with puree. Recommend 1:[address] will continue to follow. Patient/Caregiver goals: None stated Assessment: Risk For Aspiration: Mild Primary Diagnostic Impression - Oral: Dysphagia;Moderate (Worsened by lack of dentition) Primary Diagnostic Impression - Pharyngeal: Dysphagia;Mild Risk of aspiration is reduced with the use of diet modification/compensatory strategies. Compensatory Swallowing Strategies: 90 Degrees elevation for all oral intake;Full supervision with meals;One to one assist with meals;Small bites/sips;Eat/Feed slowly;Alternate solids and liquids;Feed patient only when alert Results discussed with: Results discussed with:: Patient;Nursing Recommend: Diet Solids Recommendation: Minced & Moist (5)/Mechanically Altered Dys 2 Diet Liquids Recommendation: Thin/ Thin (0) Recommended Form of Meds: Whole;Crushed;With puree Follow-Up Follow Up: Speech therapy to follow. Please refer to Care Plan. Education: Educated patient and family on the following:Results of MBS PPE: PPE worn by staff: gloves If this is the last Speech Therapy visit, this serves as the discharge summary. Thank you for this referral. Enid Wynne MA,CCC-LOCKER ATTENDANT 10/21/2023 11:15 AM [id number] * Jeanmarie Phan - 10/21/2023 9:38 AM CDT Problem: Impaired Gas Exchange Goal: Resp rate/effort will be within specified limits Description: To maintain oxygen within normal parameters. RT to monitor. Note: José Miguel remains on 1 L. No complaints of SOB. Patient continues to receive breathing treatments Q 6 * Wendy Arteaga, PT - 10/21/2023 9:11 AM CDT Physical Therapy Treatment Summary Chart review completed. Nursing consented for PT. Explained purpose of PT and patient consented to participate in therapy. RECOMMENDATIONS/PLAN: Continue per POC. PT Discharge Recommendations: Patient would benefit from multidisciplinary therapy This recommendation is made due to ongoing PT functional needs: address functional deficits;addresscare for self in the home;patient to return to prior level of care;patient is motivated and actively participating in therapy;patient has ability to improve with skilled therapy intervention Recommended Transportation Method: Stretcher/Ambulance PPE worn by staff: gloves;mask - procedural AM-PAC Basic mobility score for this patient is Mobility Raw Score:: 10 SUBJECTIVE: I feel queasy. Patient's Goal for the Day: Work with PT. Pain Assessment: Pain Location #1 Pain Scale/Observation: Numeric (0-10) Pain Rating Score #1: 9 (RN aware) Pain Location : Abdomen;Back Pain Orientation: Mid;Lower OBJECTIVE: Cognition: Orientation Level: Oriented X4 Cognition: Follows Commands-Consistent;Attention/concentration-normal for age;Processing-delayed;Judgement-decreased;Safety awareness-decreased Level of Consciousness-Adult: Alert;Eyes Open Spontaneously Participation: Active Participation Precautions: Fall Bed Mobility: Rolling: Activity Does Not Occur Supine to Sit: Moderate Assistance;X 2 Sit to Supine: Moderate Assistance;X 2 Transfers: Sit to Stand: Moderate Assistance Stand to Sit: Moderate Assistance Transfer Device: Gait belt;Walker-2 Wheeled Mobility: Distance Ambulated (ft): 0 FEET Ambulation: Level of Assistance: Activity Does Not Occur Weight Bearing Status-LLE: Weight Bearing as Tolerated Weight Bearing Status-RLE: Weight Bearing as Tolerated Weight Bearing Status-LUE: Weight Bearing as Tolerated Weight Bearing Status-RUE: Weight Bearing as Tolerated Balance: Sitting - Static: Good -;Fair + Sitting - Dynamic: Fair Standing - Static: Fair -;With Both Upper Extremity's Support Standing - Dynamic: Not tested Vital signs: 10/21/23 0826 Activity Tolerance Activity Tolerance Requires rest breaks SpO2 100 % Pulse 92 BP 165/97 MAP 111 Oxygen Therapy O2 L/M 1 $ O2 DEVICE Nasal Cannula $ Exercise: Sit <>Stand x 2 reps ASSESSMENT: Pt supine in bed on entry in agreement to work with PT. Pt is A&OX4 with reports ofincreased back and abdominal discomfort. RN aware. With HOB elevated, pt is able to initiate bed mobility transfer by moving LE towards EOB followed by need for ModA x2 to achieve sitting EOB. Pt with intermittent slight posterior trunk lean with need for Min-ModA to remain sitting at midline. Pt wo rks on self-care tasks with OT. Pt tolerates about 10 minutes in total sitting EOB. Using 2-ww, sit<>stand transfer completed with ModA. Seated rest taken d/t fatigue. Following rest, pt agreeable to additional transfer to standing with continued ModA provided using 2-ww. Pt tolerates each stand for about 30 seconds. Pt reports increased fatigue with request to rest. Assisted pt back to supine in bed. All pt needs met prior to leaving, bed alarm activated, and RN informed. Call light and phone in reach with bed alarm activated. All lines, monitors, IV's, equipment in place and intact pre and post visit. Pt educated in PT plan of care, fall precautions, and benefits of OOB activity. RNBeny, notified of patient's performance/location end of session. No, Manager Banking, present to assist throughout the session. Please refer to the Filed Flowsheet for further details. Refer to Plan of Care for PT goals. If this is the last Physical Therapy visit, this note serves as the discharge summary. [phone] * Geraldine Gonzalez, OT - 10/21/2023 8:53 AM CDT Occupational Therapy Treatment Summary Chart reviewed for history of presenting illness, diagnosis and medical history Nursing consented for OT. Discharge Recommendation: Discharge OT Discharge Recommendations: Patient would benefit from multidisciplinary therapy This recommendation is made due to ongoing OT functional needs: address care for self in the home;address functional deficits;patient to return to prior level of care;patient is motivated and actively participating in therapy;patient has ability to improve with skilled therapy intervention Recommended Transportation Method: Stretcher/Ambulance AM-PAC Basic mobility score for this patient is Daily Activity Raw Score:: 9 PPE worn by staff: gloves;mask - procedural Explained purpose of OT and patient consented to participate in therapy. Precautions: Falls / Safety/ 1L NC/ NG tube/ FMS SUBJECTIVE: Subjective: Can I have some ice chips? Psychosocial: Patient Behaviors: Calm;Cooperative Pt's goal for therapy: agreeable to EOB OBJECTIVE: Pain Assessment: Pain Location #1 Pain Scale/Observation: Numeric (0-10) Pain Rating Score #1: 9 Pain Location : Abdomen;Back Pain Orientation: Mid Cognition: Orientation Level: Oriented X4 Level of Consciousness-Adult: Alert;Eyes Open Spontaneously Cognition: Follows Commands-Consistent;Attention/concentration-normal for age;Judgement-decreased;Safety awareness-decreased;Processing-delayed Functional Mobility: Bed Mobility: Rolling: Total Assistance Supine to Sit: Moderate Assistance;X 2 Sit to Supine: Moderate Assistance;X 2 Transfers: Sit to Stand: Moderate Assistance Stand to Sit: Moderate Assistance Balance: Fair sitting balance Basic ADL's: (Through clinical assessment, observation and professional judgement) Feeding: (NPO) Oral Facial Hygiene: Maximal Assistance (to wash face, comb hair and use oral swab) Bathing: Maximal Assistance (anticiapted to bathe 8/10 portions of his body) Upper Body Dressing: Total Assistance Lower Body Dressing: Total Assistance Toileting: Total Assistance Activity Tolerance/Vital Signs: Activity Tolerance: Requires rest breaks;Tolerates sitting more than 5 minutes;Tolerates less than 1 minute in standing SpO2: 97 % Pulse: 103 BP: 165/97 ASSESSMENT: Pt found supine in bed. He is agreeable to participate in therapy. He is oriented x4 and reports pain in back and abdomen. He does report his abdomen feels queasy. He performs supine to sit with mod A of 2 and tolerates sitting EOB with improved tolerance, for approximately 10 minutes. He is agreeable to attempt standing at walker, initially requiring mod A of 2 for safety, with progression towards mod of 1 for second stand. Patient demonstrates significant weakness and ROM in BUEs requiring assist from therapist to physically grasp swab and wash rag to perform self grooming. He is noted to have limited ROM at his shoulders as well to reach towards his face. He was returned to supine at theend of the session, repositioned in bed and all needs in reach. At the end of the session, the patient was made comfortable and left with all needs in reach. Overall, the patient's ability to participate in self-care tasks and functional mobility at baseline level of function is decreased. All questions and concerns addressed prior to OT departure. All lines, monitors, IV's, equipment in place and intact pre and post visit. RN notified of patient's performance/location end of session. Educated patient with benefits of additional OT services following DC from acute care. RECOMMENDATIONS/PLAN: Continue per OT POC. Progress patient's functional activity tolerance & participation for self-care tasks to increase safety and independence with ADL and IADLS upon discharge. Discharge Recommendation: Discharge OT Discharge Recommendations: Patient would benefit from multidisciplinary therapy This recommendation is made due to ongoing OT functional needs: address care for self in the home;address functional deficits;patient to return to prior level of care;patient is motivated and actively participating in therapy;patient has ability to improve with skilled therapy intervention Recommended Transportation Method: Stretcher/Ambulance If this is the last Occupational Therapy visit, this serves as the discharge summary. OT x [phone] * Aneta Campbell DO - 10/21/2023 8:51 AM CDT Infectious Diseases Progress Note José Miguel Keys 10/13/2023 Hospital Day 9 Subjective Leg still hurts but not as much Afebrile, WBC stable Abx Ceftriaxone 10/12- Clindamycin 10/11-10/17 Vanc 10/11-10/13 Flagyl 10/11-10/12 Cefepime 10/11 Exam BP 146/90 (BP Location: Left arm, Patient Position: Lying) Pulse 81 Temp 98.3 ??F (36.8 ??C) Resp 23 Ht 1.803 m (5' 10.98 ) Wt 111.1 kg (245 lb) SpO2 100% BMI 34.19 kg/m?? General: NAD Neuro: alert, responds appropriately Lungs: non-labored on NC, diminished at bases CV: normal rate, regular Abd: soft, no guarding, bowel sounds active Ext: Left thigh and leg less redness. Wrinkles present to thigh. Mild ttp. No induration. R IJ CVC 10/10-10/13 Data Recent Labs Component Name 10/21/23 03410/20/23 0353 10/19/23 0336 WBC 14.3* 14.4* 18.0* HGB 11.9* 12.8* 12.3* HCT 38.0* 40.2 38.8 PLTCOUNT 151 176 164 Recent Labs Component Name 10/21/23 0341 10/20/23 1534 10/20/23 0353 SODIUM 148* 153* 154* POTASSIUM 3.1* 3.0* 2.9* CHLORIDE 119* 119* 120* CO2 23 27 27 BUN 37* 42* 49* CREATININE 1.41* 1.66* 1.67* GLUCOSE 132* 138* 138* CALCIUM 8.3* 8.7 9.2 Recent Labs Component Name 10/21/23 0341 10/20/23 1534 10/20/23 0353 10/19/23 0336 10/18/23 0745 10/17/23 1421 10/17/23 0336 ALBUMIN 2.4* 2.5* 2.5* 2.5* 2.5* - 2.5* ALKPHOS - - - 80 81 - 73 ALT - - - 38 45 - 53 AST - - - 31 32 - 57* TBIL - - - 0.8 1.1 - 0.5 TPROT - - - 6.8 6.8 - 7.1 - = values in this interval not displayed. Microbiology Blood culture 10/10 Dandre Group G Strep (R clinda) 10/11 negative Radiology 10/10 CXR: Mild interstitial edema vs senescent change 10/10 Venous Doppler LLE: No DVT 10/10 CTA Chest: Distended gallbladder, cholelithiasis. No PE 10/10 CT A/P wo: stone in gallbladder neck. L1-2 fusion. Mild peripancreatic inflammatory changes 10/11 CT LLE wo: There is a moderate cellulitis in the skin and subcutaneous soft tissues along the medial aspect of the left thigh. No gas is seen in the soft tissues. No drainable abscess collection is seen. No evidence for inflammatory change in the fascial planes of the left thigh. 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 10/15 CT C/A/P wo: Moderate bilateral loculated pleural effusions. Slightly nodular [...] blood products given an adjacent soft tissue contusioninjury in the left lateral soft tissues and a mildly displaced left posterior 11th rib fracture. Nofree air identified. Subtle hazy stranding in the upper abdominal mesentery which could reflect posttraumatic changes/mesenteric injury or mesenteritis. This is in proximity of the pancreas however is felt less likely reflect pancreatitis. Recommend correlation with patient history and lipase. Diffuse bladder wall thickening which could be seen in the setting of cystitis. Recommend correlation with urinalysis. MEDICATIONS FOR CURRENT ENCOUNTER: SCHEDULED MEDICATIONS: albuterol-ipratropium (Duo-Neb) nebulizer solution 3 mL, Inhalation, q6h apixaban (Eliquis) tablet 5 mg, Enteral Tube, BID aspirin chew tablet 81 mg, Enteral Tube, QDAY cefTRIAXone (Rocephin) 2,000 mg in 0.9% NaCl IV 50 mL IVPB, Intravenous, q24h docusate sodium (Colace) solution 100 mg, Enteral Tube, BID doxycycline monohydrate capsule 100 mg, Oral, QDAY insulin aspart (NovoLOG) pen 0-12 Units, Subcutaneous, 4X/day - AC & HS metoprolol tartrate IR (Lopressor) tablet 25 mg, Enteral Tube, BID pantoprazole (Protonix) injection 40 mg, Intravenous, QDAY potassium chloride 40 mEq in 270 mL bolus, Intravenous, Once rifAXIMin (Xifaxan) tablet 550 mg, Enteral Tube, BID venlafaxine (Effexor) tablet 37.5 mg, Enteral Tube, QDAY [COMPLETED] potassium chloride 40 mEq in 270 mL bolus, Intravenous, Once CONTINUOUS MEDICATIONS: 0.9% NaCl flush bag, Intravenous, CONTINUOUS PRN dextrose 5 % infusion, Intravenous, Continuous PRN MEDICATIONS: Or Or 0.9% NaCl flush bag, Intravenous, CONTINUOUS PRN acetaminophen (Tylenol) tablet 1,000 mg, Enteral Tube, q6h PRN bisacodyl (Dulcolax) suppository 10 mg, Rectal, QDAY PRN dextrose 10 % IV bolus, Intravenous, PRN dextrose 10 % IV bolus, Intravenous, PRN glucagon (Glucagen) injection 1 mg, Subcutaneous, PRN glucose (Diabetic Use) oral gel, Oral, PRN ondansetron (Zofran) injection 4 mg, Intravenous, q4h PRN senna (Senokot) tablet 8.6 mg, Enteral Tube, BID PRN Assessment --Group G strep septicemia with septic shock, concern for left thigh nec fasc or cellulitis with myositis and Streptococcal toxic shock syndrome CK and CRP not majorly elevated, CK seems to have peaked Weaned off pressors IVIG 10/11-10/12 CT WITHOUT contrast without evidence for gas 10/11 and 10/14. Surgery evaluated and both times recommended no surgery CT C/A/P non-specific peripancreatic finding was also reported on outside initial CT and his lipasewas normal on admit. Liver enzymes not consistent with a hepatobiliary process. Pleural effusion likely from volume state I do not think there is an additional process for how sick he is. I think this was streptococcal toxic shock from left leg in a cirrhosis patient that developed RADHA. His leg does not currently look great but in several ways it looks better than the first 3 days of admission. He is going to have a very slow recovery. CRP about 60% better over the one week since admission. 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 [id number], on chronic suppressive doxycycline 100mg Afib, hx of DVT on eliquis BPH on flomax RADHA on CKD, improved MICHAUD and cirrhosis with small lower esophageal varices on 2022 EGD, portal hypertensive gastropathy Hx of PUD with bleeding COPD Obesity, BMI 34 Plan -Continue ceftriaxone 2g daily, most likely for another 3 days to get to 2 weeks treatment -resumed chronic doxycycline 100mg daily ppx as per prior ID plan Aneta Campbell DO * Tiffany Fortune MD - 10/21/2023 8:51 AM CDT Admit Date: 10/12/2023 4:19 AM Hospital Day: 9 Follow Up Acute respiratory failure, AMS New Symptoms Patient still lethargic but follows commands . Patient is much more awake, less confused, and oriented to time and place Data Vitals: 10/21/23 0337 10/21/23 0400 10/21/23 0427 10/21/23 0747 BP: 146/90 Pulse: 79 87 81 Resp: 19 23 Temp: 98 ??F (36.7 ??C) 98.3 ??F (36.8 ??C) SpO2: 100% 100% 100% Weight: Height: Temp (30hrs) Max:98.3 ??F (36.8 ??C) Intake/Output Summary (Last 24 hours) at 10/21/2023 0851 Last data filed at 10/21/2023 0430 Gross per 24 hour Intake 5158.06 ml Output 1850 ml Net 3308.06 ml Medications have been reviewed Exam General appearance: a no distress HEENT: Grossly unremarkable Heart: regular rhythm, normal S1 and S2, Lungs: breath sounds clear Abdomen: soft Extremities: + edema Neuro: No focal deficits. Recent Labs Component Name 10/21/23 0341 10/20/23 0353 10/19/23 0336 WBC 14.3* 14.4* 18.0* HGB 11.9* 12.8* 12.3* HCT 38.0* 40.2 38.8 PLTCOUNT 151 176 164 Recent Labs Component Name 10/21/23 0341 10/20/23 1534 10/20/23 0353 03/08/23 1347 08/23/22 2024 02/09/22 0921 08/03/21 1025 01/09/21 1055 09/05/20 1325 02/03/19 0106 09/19/17 0243 09/18/17 0003 SODIUM 148* 153* 154* - - - 139 137 140 - - - NA - - - - 141 - - - - - 138 140 POTASSIUM 3.1* 3.0* 2.9* - 4.6* - 4.7 4.4 4.2 - 4.9* 3.4* CHLORIDE 119* 119* 120* - - - 102 102 103 - - - CO2 23 27 27 - 26 - 27 26 28 - 34* 35* BUN 37* 42* 49* - 26 - 41* 50* 27* - 26 25 CREATININE 1.41* 1.66* 1.67* - 1.60* - 1.89* 2.07* 1.46* - 0.6 0.6 GLUCOSE 132* 138* 138* - 113 - 124* 144* 109* - 153* 135* CALCIUM 8.3* 8.7 9.2 - 10.3* - 9.6 9.7 9.9 - 9.1 9.0 EGFR 52* 43* 43* - 45* - 35* 31* 48* - >60 >60 EGFRAFR - - - - - - 40* 36* 55* - - - - = values in this interval not displayed. @ Recent Labs Component Name 10/17/23 2117 10/17/23 1434 10/17/23 0811 10/17/23 0420 10/12/23 0508 09/10/17 0557 09/09/17 0841 09/09/17 0422 FIO2 - 30.0 40.0 40.0 - 40.0 100.0 100.0 PH 7.39 7.45 7.32* 7.32* - 7.45 7.51* 7.41 PCO2 57* 48* 61* 61* - 44 38 45 BE 7.8* 8.2* 3.8* 3.9* - 5.4* 5.7* 2.4* HCO3 - - - - - 30.0* 29.2* 27.4* PO2 135* 86 146* 110* - 80 274* 65* O2SAT 100 99 99 99 - - - - [id number] 34.5* 33.4* 31.4* 31.4* - - - - - = values in this interval not displayed. Assessment/Plan: Acute hypercapnic respiratory failure: Patient is currently on BiPAP with an IPAP of 30 and EPAP of14 with 40 percent oxygen bled in. Significant improvement with resolution of respiratory acidosis but has chronic hypercapnia. Continue BIPAP at HS for now and place on NC during the day as tolerated Altered mental status: Much more awake and follows commands. Presumed to be secondary to hypercapnic respiratory failure. CT Head without acute pathology. EEG ok. LFTT ok, Ammonia ok, on Rifaximin empirically, off Lactulose Bilateral pleural effusion with attendant atelectasis: CXR 10/17/2023 shows significant improvement with small let pleural effusion. Repeat CXR in am Hypernatremia presumably secondary to diuresis. Improving. Patient on D5W at 125cc/hour. Nephrologyhas been consulted Group G Streptococcus bacteremia per blood cultures at outside facility: Patient is currently on ceftriaxone day 9, and doxycycline. Id is following patient Excessive narcotic use during this hospitalization: Patient is now off Narcan drip Anasarca during the hospitalization: Echocardiogram showed EF of 45 percent, BNP remains elevated but patient is clinically less fluid overloaded. Diuretics are being held secondary to hypernatremia History of atrial fibrillation: Patient is on beta-fe and Eliquis Code status: Full * Tamara Bauman MD - 10/21/2023 8:23 AM CDT Images from the original note were not included. Nephrology Progress Note Admit Date: 10/12/2023 4:19 AM Hospital Day: 9 Assessment: Acute kidney injury-ATN secondary shock status and hypotension + ELLIOTT -creatinine 2.94 on 10/12 -creatinine 1.8 08/2022 -creatinine baseline 1.5 since 2019 Hyperkalemia Metabolic acidosis Sepsis Possible lower extremity cellulitis Shock status-possibly sepsis Acute hypoxic respiratory failure History of COPD History of AFib History of CHF History of cirrhosis secondary to MICHAUD Full Code *PCP is Provider Unknown* Recommendations: SCr better today K repletion ordered Na improving Continue d5w for now NG tube removed Would hold further lasix for now Monitor UOP Maintain Cabral catheter Checked urine lytes Antibiotics per ID Gabapentin held Surgical team following Avoid hypotension Avoid further IV contrast and NSAIDs No acute indications for dialysis Reason for Consult Acute kidney injury Clinical Course 10/12/2023: Admitted 10/12: Renal consult 10/13: Urine output 760 cc in last 24 hours. Off pressors. On low-rate LR 10/14: Somnolent. Cabral removed early this morning. 10/15: Cabral replaced due to continued urinary retention. 10/16: [employer] called overnight due to AMS. Given narcan, placed on BiPAP, transferred to step down for closer monitoring. Remains on narcan drip this morning. 10/17: remains lethargic. 10/18: More awake today, though still confused 10/19: More awake and interactive. 10/20: Awake and conversant, less confused. New Symptoms No voiced complaints. General: awake Lungs: no distress at rest on O2 via NC Extremities: no clubbing or cyanosis, no edema. Erythema to bilateral lower extremities. Circulation: no central access Genitalia: Cabral present Data Vitals: 10/21/23 0337 10/21/23 0400 10/21/23 0427 10/21/23 0747 BP: 146/90 Pulse: 79 87 81 Resp: 19 23 Temp: 98 ??F (36.7 ??C) 98.3 ??F (36.8 ??C) SpO2: 100% 100% 100% Weight: Height: Supplemental Oxygen (last filed value): O2 L/M: 1 (10/21/23426) Temp (30hrs) Max:98.3 ??F (36.8 ??C) Intake/Output Summary (Last 24 hours) at 10/21/2023 0823 Last data filed at 10/21/2023 0430 Gross per 24 hour Intake 5158.06 ml Output 1850 ml Net 3308.06 ml Admission weight: Weight: 111.1 kg (244 lb 14.9 oz) (10/12/23 0507) Most recent weight: Weight: 111.1 kg (245 lb) (10/14/23 06) Recent Labs Component Name 10/21/23 0341 10/20/23 1534 10/20/23 0353 SODIUM 148* 153* 154* POTASSIUM 3.1* 3.0* 2.9* CHLORIDE 119* 119* 120* CO2 23 27 27 BUN 37* 42* 49* CREATININE 1.41* 1.66* 1.67* GLUCOSE 132* 138* 138* CALCIUM 8.3* 8.7 9.2 ALBUMIN 2.4* 2.5* 2.5* PHOS 2.4 2.4 1.7* Recent Labs Component Name 10/21/23 0341 10/20/23 1534 10/20/23 0353 EGFR 52* 43* 43* Recent Labs Component Name 10/21/23 0341 10/20/23 0353 10/19/23 0336 MAGNESIUM 2.1 2.4 2.6 Recent Labs Component Name 10/21/23 0341 10/20/23 0353 10/19/23 0336 WBC 14.3* 14.4* 18.0* HGB 11.9* 12.8* 12.3* HCT 38.0* 40.2 38.8 PLTCOUNT 151 176 164 Recent Labs Component Name 10/15/23 0444 10/14/23 0337 10/13/23 1153 CK 440* 786* 905* MEDICATIONS FOR CURRENT ENCOUNTER: SCHEDULED MEDICATIONS: albuterol-ipratropium (Duo-Neb) nebulizer solution 3 mL, Inhalation, q6h apixaban (Eliquis) tablet 5 mg, Enteral Tube, BID aspirin chew tablet 81 mg, Enteral Tube, QDAY cefTRIAXone (Rocephin) 2,000 mg in 0.9% NaCl IV 50 mL IVPB, Intravenous, q24h docusate sodium (Colace) solution 100 mg, Enteral Tube, BID doxycycline monohydrate capsule 100 mg, Oral, QDAY insulin aspart (NovoLOG) pen 0-12 Units, Subcutaneous, 4X/day - AC & HS metoprolol tartrate IR (Lopressor) tablet 25 mg, Enteral Tube, BID pantoprazole (Protonix) injection 40 mg, Intravenous, QDAY potassium chloride 40 mEq in 270 mL bolus, Intravenous, Once rifAXIMin (Xifaxan) tablet 550 mg, Enteral Tube, BID venlafaxine (Effexor) tablet 37.5 mg, Enteral Tube, QDAY [COMPLETED] potassium chloride 40 mEq in 270 mL bolus, Intravenous, Once CONTINUOUS MEDICATIONS: 0.9% NaCl flush bag, Intravenous, CONTINUOUS PRN dextrose 5 % infusion, Intravenous, Continuous PRN MEDICATIONS: Or Or 0.9% NaCl flush bag, Intravenous, CONTINUOUS PRN acetaminophen (Tylenol) tablet 1,000 mg, Enteral Tube, q6h PRN bisacodyl (Dulcolax) suppository 10 mg, Rectal, QDAY PRN dextrose 10 % IV bolus, Intravenous, PRN dextrose 10 % IV bolus, Intravenous, PRN glucagon (Glucagen) injection 1 mg, Subcutaneous, PRN glucose (Diabetic Use) oral gel, Oral, PRN ondansetron (Zofran) injection 4 mg, Intravenous, q4h PRN senna (Senokot) tablet 8.6 mg, Enteral Tube, BID PRN * Radha Malone MSW - 10/21/2023 7:56 AM CDT New Facility Referral Follow-up Pt remains in the ICU. Tuesday summary note Level of Care (SNF/Medicaid NH/Rehab/Usp Care/LTACH): snf requested should pt be unable to rtn hme once stable for discharge. This worker spke with pts. spouse Trinity Keys @ [phone], last week,,and below fac/ [facility]/ [facility] per spouse requestedif new snf needed @ time of discharge. Fac has an [employer] contract.Fac willing to review for possible admit. Ss updated fac pt is not yet stable for discharge currently remains in the ICU. MD's following for medical stability. Ss will continue to send updates for fac review. Rtn call rcd from Moni with [facility]/ [facility] admissions, ss explained pt is NOT yet ready for discharge updates will be sent daily and when closer to discharge will then need final answer.Fac was asked to please continue to follow for possible admit and they plan to follow. Assist appreciated. Additional info to follow/ updates will be sent daily.- updates sent again today 10/20 Referrals initiated: Continued Care and Services - Admitted Since 10/12/2023 Destination Service Provider Request Status Selected Services Address Phone Fax Patient Preferred [facility] Pending - Request Sent N/A [id number] [facility] [place] [id number] -- If Medicare-3 day qualifying stay verified: pt has [employer] and will need an Auth to transfer to any snf. Hospital cm to obtain snf Auth if to snf once fac with approval with an available bed. See cm note for all Auth updates if pt to snf @ time of discharge. monitoring facility responses Comments/changes:if to snf nrsg to please send fac orders,chart and discharge summary. Name: CHRIS Garcia Phone: [phone] * Jayme Rodriguez MD - 10/20/2023 6:25 PM CDT Internal Medicine Progress Note -Hospitalist Admit Date: 10/12/2023 4:19 AM Hospital Day: 8 Clinical Course: 72 independent living, history of AFib, CHF, VALENTINA on BiPAP at nighttime, COPD, CKD was admitted for sepsis and lower extremity cellulitis New Symptoms: Awake but lethargic, can greet back. He looks to be more awake today. But maybe more agitated No other issues reported Objective: Vitals: 10/20/23 0808 10/20/23 0844 10/20/23 1200 10/20/23 1625 BP: 133/90 164/86 Pulse: 89 84 90 Resp: 29 23 22 Temp: SpO2: 94% 94% 97% 98% Weight: Height: General appearance: lethargic but woke up and replied Left pupil is bigger than right Heart: normal rate Lungs: breath sounds normal and symmetric; no rales or wheezes Abdomen: soft without mass, non-tender, with normal bowel sounds Extremities: no clubbing, cyanosis or edema, chronic venous insufficiency changes on bilateral calves. Left thigh is red and tender. Intake/Output Summary (Last 24 hours) at 10/20/2023 1825 Last data filed at 10/20/2023 1145 Gross per 24 hour Intake 90 ml Output 1300 ml Net -1210 ml Current Medications: MEDICATIONS FOR CURRENT ENCOUNTER: SCHEDULED MEDICATIONS: albuterol-ipratropium (Duo-Neb) nebulizer solution 3 mL, Inhalation, q6h apixaban (Eliquis) tablet 5 mg, Enteral Tube, BID aspirin chew tablet 81 mg, Enteral Tube, QDAY cefTRIAXone (Rocephin) 2,000 mg in 0.9% NaCl IV 50 mL IVPB, Intravenous, q24h docusate sodium (Colace) solution 100 mg, Enteral Tube, BID doxycycline monohydrate capsule 100 mg, Oral, QDAY insulin aspart (NovoLOG) pen 0-12 Units, Subcutaneous, 4X/day - AC & HS metoprolol tartrate IR (Lopressor) tablet 25 mg, Enteral Tube, BID potassium - sodium phosphates (Phos-Nak) powder 1 packet, Oral, TID WC potassium chloride 40 mEq in 270 mL bolus, Intravenous, Once rifAXIMin (Xifaxan) tablet 550 mg, Enteral Tube, BID [COMPLETED] potassium chloride 20 mEq in 100 mL SW bolus, Intravenous, Once [START ON 10/21/2023] pantoprazole (Protonix) injection 40 mg, Intravenous, QDAY [START ON 10/21/2023] venlafaxine (Effexor) tablet 37.5 mg, Enteral Tube, QDAY CONTINUOUS MEDICATIONS: 0.9% NaCl flush bag, Intravenous, CONTINUOUS PRN dextrose 5 % infusion, Intravenous, Continuous PRN MEDICATIONS: Or Or 0.9% NaCl flush bag, Intravenous, CONTINUOUS PRN acetaminophen (Tylenol) tablet 1,000 mg, Enteral Tube, q6h PRN bisacodyl (Dulcolax) suppository 10 mg, Rectal, QDAY PRN dextrose 10 % IV bolus, Intravenous, PRN dextrose 10 % IV bolus, Intravenous, PRN glucagon (Glucagen) injection 1 mg, Subcutaneous, PRN glucose (Diabetic Use) oral gel, Oral, PRN ondansetron (Zofran) injection 4 mg, Intravenous, q4h PRN senna (Senokot) tablet 8.6 mg, Enteral Tube, BID PRN Data: Recent Labs Component Name 10/20/23 1534 10/20/23 0353 10/19/23 1639 10/19/23 0336 SODIUM 153* 154* 155* 156* POTASSIUM 3.0* 2.9* - 3.3* BUN 42* 49* - 63* CREATININE 1.66* 1.67* - 1.83* GLUCOSE 138* 138* - 120* Recent Labs Component Name 10/20/23 0353 10/19/23 0336 10/17/23 0358 WBC 14.4* 18.0* 16.7* HGB 12.8* 12.3* 11.7* HCT 40.2 38.8 38.0* PLTCOUNT 176 164 133* CT FEMUR LEFT WO CONTRAST Result Date: 10/12/2023 IMPRESSION: There is a moderate cellulitis in the skin and subcutaneous soft tissues along the medial aspect of the left thigh. No gas is seen in the soft tissues. No drainable abscess collection is seen. No evidence for inflammatory change in the fascial planes of the left thigh. 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 > Interpreting Provider: Jose Alberto Kemp MD on 10/12/2023 11:59 AM XR CHEST 1VW PORTABLE Result Date: 10/12/2023 IMPRESSION: Tubes and lines in adequate position without a pneumothorax Oral and parenchymal changeat the left base slightly progressive in the interval > Interpreting Provider: Alberto Atwood MDon 10/12/2023 8:23 AM Assessment and Plan Continue IV antibiotics Area of upper thigh looks to be clinically better Continue D5, start water flushes via NG 1. Altered mental status Likely metabolic encephalopathy secondary to acute infection and hypernatremia Started to improve gradually He is more oriented 10/19 and able to answer questions appropriately Workup ongoing with Neurology Initially a rapid response was called due to altered mental status thought to be hypercapnia related to opioids started on Narcan drip and placed on BiPAP for acidosis also started on lactulose and rifaximin 2. Septic shock presented on admission IV fluids, IV antibiotics and resolved Doxycycline 3. Left thigh cellulitis looks to be improving almost erythema has gone Continue with IV antibiotic CT scan showed no soft tissue gas and no abscess Surgery and Infectious Disease managing 4. Group G strep bacteremia Secondary to above Continue on doxycycline likely until 10/24 Noted chronic suppressive antibiotics at home. 5. Lactic acidosis resolved 6. Hypernatremia On D5 I will start free water flushes 300 q.4 hours and will repeat labs in the morning 7. Difficulty swallowing Likely secondary to altered mental status. I am expecting that this will resolved will pull NG tube to do speech evaluation tomorrow 8. Acute on chronic kidney disease likely ATN in the settings of shock also received contrast Improving 9. Acute on chronic hypoxemic respiratory failure looks to be much better Extubated October 11 Currently on nasal cannula 10. History of COPD no wheezing 11. History of CHF monitor fluid status 12. History of atrial fibrillation on Eliquis and metoprolol 13. Michaud cirrhosis continue rifaximin will stop lactulose Discussed with patient's at bedside Patient's Functional Baseline prior to admit: independent Discharge Planning to Next Site of Care: Other: tbd Anticipated discharge date: tbd READMISSION RISK SCORE is 15 at 6:25 PM 10/20/2023. DVT prophylaxis: Eliquis Full Code Jayme Rodriguez MD 10/20/2023 6:25 PM Portions of this note may be dictated using voice recognition software. Variances in spelling and vocabulary are possible and unintentional. Not all errors are caught/corrected. Please notify the author if any discrepancies are noted or if the meaning of any statement is not clear. These grammatical oversights have no impact on the medical care provided to the patient. Time in which this note is created does not match the time of rounding/clinical exam. * Mary Anne Rosario - 10/20/2023 3:32 PM CDT EEG completed on 10/20/23 at 255 p.m. * Wendy Arteaga, PT - 10/20/2023 2:44 PM CDT Pt chart reviewed and RN in agreement for PT treatment. Attempted to see pt this PM. Pt having testcompleted in room at this time. Will hold and follow with PT at a later time/date, as appropriate. X [phone] * Yanira Macias MD - 10/20/2023 10:20 AM CDT Neurology Progress Note Patient Name José Miguel Keys Days of Admission: 8 Reason for Visit Mental status changes Clinical Course/New Symptoms Patient is a 72 year old male with a history of atrial fibrillation, on Eliquis,CHF, COPD, CKD, coronary artery disease, diabetes,previous DVT, VALENTINA on BiPAP at night who was transferred to our facility secondary to sepsis/ left thigh cellulitis. Rapid response called 10/16/2023 due to increased respiratory distress and mental status changes. 0.4mg narcan given as total of 60mg oxycodone has been given during the last 24 hours. ABG obtained. PH 7.31, CO2 61, HCO3 30.7. CT brain did not show acuteprocess. Mental status continues to improve He is able to follow commands more consistently this morning He wears BiPAP overnight Data Reviewed CT brain without acute process Ammonia level 26 Objective Patient Vitals for the past 24 hrs: Temp Pulse Resp BP SpO2 O2 % (FiO2) 10/20/23 0844 -- -- -- 133/90 -- -- 10/20/23 0808 -- -- -- -- 94 % -- 10/20/23 0800 98.1 ??F (36.7 ??C) 93 26 133/90 95 % -- 10/20/23 0752 -- 77 -- -- 95 % 30 % 10/20/23 0751 -- 84 22 -- 96 % 39 % 10/20/23 0400 98.1 ??F (36.7 ??C) 89 22 157/97 95 % 30 % 10/20/23 0315 -- 84 25 -- 98 % 30 % 10/20/23 0313 -- 85 -- -- 97 % 30 % 10/20/23 0200 -- -- -- -- -- 30 % 10/20/23 0000 97.8 ??F (36.6 ??C) 82 18 146/85 96 % -- 10/19/232340 -- -- -- -- 97 % -- 10/19/232337 -- -- -- 98 % 30 % 10/19/232013 -- 90 -- 142/83 -- -- 10/19/231999 97.6 ??F (36.4 ??C) 80 26 142/83 98 % 30 % 10/19/231942 -- 86 -- -- 98 % 30 % 10/19/231940 -- 84 25 -- 98 % 30 % 10/19/23 1600 97.8 ??F (36.6 ??C) -- -- -- -- -- 10/19/23 1200 97.9 ??F (36.6 ??C) -- -- -- -- -- 10/19/23 1107 -- -- -- 150/73 -- -- 10/19/23 1106 -- 103 -- 146/77 97 % -- 10/19/23 1105 -- -- -- -- 95 % -- Labs: Recent Labs Component Name 10/20/23 0353 10/19/23 0336 10/17/23 0358 WBC 14.4* 18.0* 16.7* HGB 12.8* 12.3* 11.7* HCT 40.2 38.8 38.0* PLTCOUNT 176 164 133* Recent Labs Component Name 10/20/23 0353 10/19/23 1639 10/19/23 0336 10/18/23 0745 10/17/23 1421 10/17/23 0336 SODIUM 154* 155* 156* 153* - 146* POTASSIUM 2.9* - 3.3* 3.7 - 5.6* CHLORIDE 120* - 120* 113* - 115* CO2 27 - 27 28 - 20* BUN 49* - 63* 81* - 89* CREATININE 1.67* - 1.83* 2.34* - 2.51* GLUCOSE 138* - 120* 152* - 107* CALCIUM 9.2 - 9.3 9.5 - 9.0 ALBUMIN 2.5* - 2.5* 2.5* - 2.5* ALKPHOS - - 80 81 - 73 ALT - - 38 45 - 53 AST - - 31 32 - 57* TBIL - - 0.8 1.1 - 0.5 TPROT - - 6.8 6.8 - 7.1 EGFR 43* - 38* 28* - 26* - = values in this interval not displayed. Recent Labs Component Name 08/20/20 0000 CHOL 150 TRIG 73 HDL 45 Recent Labs Component Name 10/12/23 0503 03/08/23 1349 08/10/22 1259 INR 1.2* 1.0 1.1 I have reviewed chart and the pertinent images and studies are personally reviewed Past Medical History: Diagnosis Date Actinic keratosis Arthritis Asthma (HCC) Atrial fibrillation, chronic (HCC) Basal cell carcinoma CAD (coronary artery disease) Clotting disorder (HCC) Colitis COPD (chronic obstructive pulmonary disease) (HCC) Diabetes (HCC) DVT (deep venous thrombosis) (HCC) Dyslipidemia Eczema GERD (gastroesophageal reflux disease) Heart attack (HCC) High blood pressure Hx of blood clots Keloid Kidney disease Lentigo maligna melanoma (HCC) MRSA (methicillin resistant staph aureus) culture positive 07/29/2017; 02/04/19; 04/29/2019 07/29/17-Disc- tissue culture MRSA; R hip; nasal swab+ Obstructive sleep apnea VALENTINA (obstructive sleep apnea) Other cirrhosis of liver (HCC) Peripheral neuropathy Psoriasis S/P PICC central line placement 02/13/2019 [facility] VAT R basilic Seizures (HCC) Squamous cell carcinoma VRE (vancomycin resistant enterococcus) culture positive 04/29/2019 rectal swab+ 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 Tobramycin Eye Itching red around the eyes, puffy, itchy Family History Problem Relation Name Age of Onset CAD (Coronary Artery Disease) Mother age 65 Cirrhosis Father Cancer - Breast Neg Hx CVA Neg Hx Hemophilia Neg Hx Cancer - Other Neg Hx Eczema Neg Hx Psoriasis Neg Hx Cancer - Skin, Non Melanoma Neg Hx Cancer - Skin, Melanoma Neg Hx Social History Socioeconomic History Marital status: Spouse name: Not on file Number of children: Not on file Years of education: Not on file Highest education level: Not on file Occupational History Not on file Tobacco Use Smoking status: Former Types: Cigarettes Quit date: 06/06/1981 Years since quittin.4 Smokeless tobacco: Never Vaping Use Vaping Use: Never used Substance and Sexual Activity Alcohol use: No Drug use: No Sexual activity: Not on file Other Topics Concern Not on file Social History Narrative Merged History Encounter [place] war Social Determinants of Health Financial Resource Strain: Low Risk (10/14/2023) Overall Financial Resource Strain (CARDIA) Difficulty of Paying Living Expenses: Not hard at all Food Insecurity: No Food Insecurity (10/14/2023) Hunger Vital Sign Worried About Running Out of Food in the Last Year: Never true Ran Out of Food in the Last Year: Never true Transportation Needs: No Transportation Needs (10/14/2023) PRAPARE - Transportation Lack of Transportation (Medical): No Lack of Transportation (Non-Medical): No Stress: No Stress Concern Present (10/14/2023) [employer] [employer] - Occupational Stress Questionnaire Feeling of Stress : Only a little Housing Stability: Low Risk (10/14/2023) Housing Stability Vital Sign Unable to Pay for Housing in the Last Year: No Number of Places Lived in the Last Year: 1 Unstable Housing in the Last Year: No MEDICATIONS FOR CURRENT ENCOUNTER: SCHEDULED MEDICATIONS: albuterol-ipratropium (Duo-Neb) nebulizer solution 3 mL, Inhalation, q6h apixaban (Eliquis) tablet 5 mg, Enteral Tube, BID aspirin chew tablet 81 mg, Enteral Tube, QDAY cefTRIAXone (Rocephin) 2,000 mg in 0.9% NaCl IV 50 mL IVPB, Intravenous, q24h docusate sodium (Colace) capsule 100 mg, Oral, BID doxycycline monohydrate capsule 100 mg, Oral, QDAY insulin aspart (NovoLOG) pen 0-12 Units, Subcutaneous, 4X/day - AC & HS lactulose (Chronulac) solution 20 g, Oral, 4X/day metoprolol tartrate IR (Lopressor) tablet 25 mg, Enteral Tube, BID pantoprazole EC (Protonix) tablet 40 mg, Oral, QDAY potassium - sodium phosphates (Phos-Nak) powder 1 packet, Oral, TID WC rifAXIMin (Xifaxan) tablet 550 mg, Enteral Tube, BID venlafaxine XR 24hr (Effexor XR) capsule 37.5 mg, Oral, QDAY WITH BREAKFAST [COMPLETED] potassium chloride 20 mEq in 100 mL SW bolus, Intravenous, Once CONTINUOUS MEDICATIONS: 0.9% NaCl flush bag, Intravenous, CONTINUOUS PRN dextrose 5 % infusion, Intravenous, Continuous PRN MEDICATIONS: Or Or 0.9% NaCl flush bag, Intravenous, CONTINUOUS PRN acetaminophen (Tylenol) tablet 1,000 mg, Enteral Tube, q6h PRN bisacodyl (Dulcolax) suppository 10 mg, Rectal, QDAY PRN dextrose 10 % IV bolus, Intravenous, PRN dextrose 10 % IV bolus, Intravenous, PRN glucagon (Glucagen) injection 1 mg, Subcutaneous, PRN glucose (Diabetic Use) oral gel, Oral, PRN ondansetron (Zofran) injection 4 mg, Intravenous, q4h PRN senna (Senokot) tablet 8.6 mg, Oral, BID PRN Physical Exam General appearance: well developed, in no apparent distress Head: Atraumatic, no obvious abnormality Neck: Normal carotid pulses, no bruits CVS: S1 S2 heard. No murmurs or gallop heard. Resp: Air entry is equal bilaterally without evidence of crackles or rhonchi. Abd: Non tender, non distended and no evidence of organomegaly. Ext: Distal pulses are preserved, no edema Psychiatric: no depression, no anxiety Skin: No rashes, no change of color Neuro Exam: Mental Status: More awake, follows simple commands Speech: has BiPAP on, nonverbal Cranial Nerves: 1. (Cranial Nr 2) Fundii - Not able to test, pupil reactive to light 2. (Cranial Nr 3,4,6) Extra Ocular Movements - Intact 3. (Cranial Nr 5) Facial sensation - Equal Bilaterally 4. (Cranial Nr 7) Facial expression - No Facial Asymmetry 5. (Cranial Nr 8) Hearing - Intact to conversation and finger rub 6. (Cranial Nr 9, 10) Voice - No change in quality or pitch Palate - Elevates equally Gag - Present 7. (Cranial Nr 11) Elevate shoulder - Bilaterally without paralysis 8. (Cranial Nr 12) Tongue - No deviation or wasting Motor: Has spontaneous movements in all extremities Sensation: withdrawal to pain Reflexes: DTRs Symmetric 1+ with plantar responses both sides Coordination/Cerebellar: not able to test Gait: not tested. Assessment: 1. Mental status changes Suspect metabolic encephalopathy secondary to infection and respiratory distress Neurologically would like to rule out nonconvulsive seizure and embolic strokes, but both diagnosesare less likely CT brain without acute process 2. Septic shock Left thigh cellulitis Group G strep bacteremia 3. 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 RADHA on CKD 5. History of MICHAUD liver cirrhosis 6. COPD Plan: 1. EEG is pending 2. Continue Eliquis and low dose of ASA 3. Pulmonology follows On BiPAP 4. On Ceftriaxone and Doxycycline 5. Ammonia level checked which is normal Continues with Lactulose 6. Hold off MRI brain since mental status has been better 7. Follow up with exam Yanira Macias MD * Enid Kearns, ELISE - 10/20/2023 10:05 AM CDT Speech Pathology: José Miguel Keys is a 72 year old male, admitted to facility 07/08 to sepsis of unknown origin. SOB with an increased cough and sputum production, left leg pain and rash. Pt intubated on 10/11 and extubated same day. Past medical history includes: Past Medical History: Diagnosis Date Actinic keratosis Arthritis Asthma (HCC) Atrial fibrillation, chronic (HCC) Basal cell carcinoma CAD (coronary artery disease) Clotting disorder (HCC) Colitis COPD (chronic obstructive pulmonary disease) (HCC) Diabetes (HCC) DVT (deep venous thrombosis) (HCC) Dyslipidemia Eczema GERD (gastroesophageal reflux disease) Heart attack (HCC) High blood pressure Hx of blood clots Keloid Kidney disease Lentigo maligna melanoma (HCC) MRSA (methicillin resistant staph aureus) culture positive 07/29/2017; 02/04/19; 04/29/2019 07/29/17-Disc- tissue culture MRSA; R hip; nasal swab+ Obstructive sleep apnea VALENTINA (obstructive sleep apnea) Other cirrhosis of liver (HCC) Peripheral neuropathy Psoriasis S/P PICC central line placement 02/13/2019 [facility] VAT R basilic Seizures (HCC) Squamous cell carcinoma VRE (vancomycin resistant enterococcus) culture positive 04/29/2019 rectal swab+ Pertinent History: No history of ST services documented in [facility] or care everywhere. This Admission: 10/16/2023: Clinical bedside swallowing evaluation completed with recommendations for strict NPO. 10/19/2023: Ice chip protocol initiated. This Date: Vitals: Date: 10/20/2023 WBC: Temp: Temp: 98.1 ??F (36.7 ??C) O2: O2 L/M: 1 $ O2 DEVICE: (S) Nasal Cannula $ Lung Sounds: General Anterior Breath Sounds: DiminishedRespiratory (WDL): Exceptions to WDL Imaging: CXR: 10/19: Persistent segmental retrocardiac opacity with small left pleural effusion. No overt cardiogenic edema. Overall, exam is stable from comparison. CT: 10/16: No acute intracranial abnormality. Chronic changes as noted above. S: Pt sitting upright in bed. Agreeable to ST visit. Mentation somewhat improved again today. The pt was oriented to person, place, and year. Unable to recall reason for hospitalization. NG remains in place. O: Oral peripheral examination revealed xerostomia with mild amount of thick sticky secretions which pt independently suctioned, generalized oral musculature weakness, clear/slightly gravelly vocal quality, and adequate reflexive cough. The pt participated in trials of ice chips, thin liquid via straw, puree, and softened solid. Oral phase revealed diminished labial seal but with adequate oral containment of bolus, increased AP transit time, and moderately extended/disorganized mastication of solid requiring tsp of puree x2 to clear. Laryngeal elevation is palpable. Observed delayed cough x1 with thin liquid. No overt clinical signs of aspiration observed with ice chips, puree, softened sloane d. The pt continues to present with moderate oral dysphagia, suspected pharyngeal dysphagia. He remains at risk for aspiration 2/2 AMS, fluctuating level of alertness, and dysphagia. He continues to demonstrate some improvement in mentation/MAURA each day. Continue NPO with ice chips per protocol andwith medication administered whole or crushed in puree as tolerated. Will plan for a modified barium swallow study (MBS) tomorrow 10/20 assuming pt's level of alertness and mental status remain stable. Discussed with Dr. Rodriguez. I anticipate the pt to be able to initiate an oral diet following MBS. Will plan to remove NG prior to completion of MBS as the wide/rigid nature of the NG can impact swallow function and collect barium residue in the pharynx throughout the study causing overall swallow function to appear more impaired. Dr. Rodriguez is in agreement for NG to be removed prior to MBS. Patient/Caregiver goals: None stated Assessment: Primary Diagnostic Impression - Oral: Dysphagia;Moderate Primary Diagnostic Impression - Pharyngeal: Dysphagia (Suspected) Risk For Aspiration: Moderate AMBRIZ Assessment: MASA Score: 146 Dysphagia Severity Level: Moderate (139 - 167) Risk for Aspiration: Moderate (148 - 141) Risk of aspiration is reduced with the use of diet modification/compensatory strategies. Compensatory Swallowing Strategies: 90 Degrees elevation for all oral intake Results discussed with: Results discussed with:: Patient;Nursing Recommend: Diet Solids Recommendation: NPO Diet Liquids Recommendation: NPO Recommended Form of Meds: Whole;Crushed;With puree Risk For Aspiration: Moderate Ice Chip Protocol: 2-3 ice chips per hour with RN Oral care q2-3 Aspiration precautions No cups of ice left in pt's room Strategies Include: Compensatory Swallowing Strategies: 90 Degrees elevation for all oral intake Follow Up: Recommendations: NPO;With Ice Chips PRN;Dysphagia Treatment;Modified Barium Swallow Study Follow Up: Speech therapy to follow. Please refer to Care Plan. Education: Educated patient and family on the following:Goals of Care PPE: PPE worn by staff: gloves If this is the last Speech Therapy visit, this serves as the discharge summary. Thank you for this referral. Enid Wynne MA,[facility] ATTENDANT 10/20/2023 1:54 PM [id number] * Aneta Campbell DO - 10/20/2023 8:29 AM CDT Infectious Diseases Progress Note José Miguel Keys 10/13/2023 Hospital Day 8 Subjective Leg still hurts some. Asking for protein. Afebrile, WBC trending back down Abx Ceftriaxone 10/12- Clindamycin 10/11-10/17 Vanc 10/11-10/13 Flagyl 10/11-10/12 Cefepime 10/11 Exam BP 157/97 (BP Location: Left arm, Patient Position: Lying) Pulse 77 Temp 98.1 ??F (36.7 ??C) (Axillary) Resp 22 Ht 1.803 m (5' 10.98 ) Wt 111.1 kg (245 lb) SpO2 94% BMI 34.19 kg/m?? General: NAD Neuro: alert, responds appropriately Lungs: non-labored on NC, diminished at bases CV: normal rate, regular Abd: soft, no guarding, bowel sounds active Ext: Left thigh and leg less redness. Wrinkles present to thigh. Mild ttp. No induration. R IJ CVC 10/10-10/13 Data Recent Labs Component Name 10/20/23 0353 10/19/23 0336 10/17/23 0358 WBC 14.4* 18.0* 16.7* HGB 12.8* 12.3* 11.7* HCT 40.2 38.8 38.0* PLTCOUNT 176 164 133* Recent Labs Component Name 10/20/23 0353 10/19/23 1639 10/19/23 0336 10/18/23 0745 SODIUM 154* 155* 156* 153* POTASSIUM 2.9* - 3.3* 3.7 CHLORIDE 120* - 120* 113* CO2 27 - 27 28 BUN 49* - 63* 81* CREATININE 1.67* - 1.83* 2.34* GLUCOSE 138* - 120* 152* CALCIUM 9.2 - 9.3 9.5 Recent Labs Component Name 10/20/23 0353 10/19/23 0336 10/18/23 0745 10/17/23 1421 10/17/23 0336 ALBUMIN 2.5* 2.5* 2.5* - 2.5* ALKPHOS - 80 81 - 73 ALT - 38 45 - 53 AST - 31 32 - 57* TBIL - 0.8 1.1 - 0.5 TPROT - 6.8 6.8 - 7.1 - = values in this interval not displayed. Microbiology Blood culture 10/10 Dandre Group G Strep (R clinda) 10/11 negative Radiology 10/10 CXR: Mild interstitial edema vs senescent change 10/10 Venous Doppler LLE: No DVT 10/10 CTA Chest: Distended gallbladder, cholelithiasis. No PE 10/10 CT A/P wo: stone in gallbladder neck. L1-2 fusion. Mild peripancreatic inflammatory changes 10/11 CT LLE wo: There is a moderate cellulitis in the skin and subcutaneous soft tissues along the medial aspect of the left thigh. No gas is seen in the soft tissues. No drainable abscess collection is seen. No evidence for inflammatory change in the fascial planes of the left thigh. 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 10/15 CT C/A/P wo: Moderate bilateral loculated pleural effusions. Slightly nodular [...] blood products given an adjacent soft tissue contusioninjury in the left lateral soft tissues and a mildly displaced left posterior 11th rib fracture. Nofree air identified. Subtle hazy stranding in the upper abdominal mesentery which could reflect posttraumatic changes/mesenteric injury or mesenteritis. This is in proximity of the pancreas however is felt less likely reflect pancreatitis. Recommend correlation with patient history and lipase. Diffuse bladder wall thickening which could be seen in the setting of cystitis. Recommend correlation with urinalysis. MEDICATIONS FOR CURRENT ENCOUNTER: SCHEDULED MEDICATIONS: albuterol-ipratropium (Duo-Neb) nebulizer solution 3 mL, Inhalation, q6h apixaban (Eliquis) tablet 5 mg, Enteral Tube, BID aspirin chew tablet 81 mg, Enteral Tube, QDAY cefTRIAXone (Rocephin) 2,000 mg in 0.9% NaCl IV 50 mL IVPB, Intravenous, q24h docusate sodium (Colace) capsule 100 mg, Oral, BID doxycycline monohydrate capsule 100 mg, Oral, QDAY insulin aspart (NovoLOG) pen 0-12 Units, Subcutaneous, 4X/day - AC & HS lactulose (Chronulac) solution 20 g, Oral, 4X/day metoprolol tartrate IR (Lopressor) tablet 25 mg, Enteral Tube, BID pantoprazole EC (Protonix) tablet 40 mg, Oral, QDAY potassium - sodium phosphates (Phos-Nak) powder 1 packet, Oral, TID WC rifAXIMin (Xifaxan) tablet 550 mg, Enteral Tube, BID venlafaxine XR 24hr (Effexor XR) capsule 37.5 mg, Oral, QDAY WITH BREAKFAST [COMPLETED] potassium chloride 20 mEq in 100 mL SW bolus, Intravenous, Once CONTINUOUS MEDICATIONS: 0.9% NaCl flush bag, Intravenous, CONTINUOUS PRN dextrose 5 % infusion, Intravenous, Continuous PRN MEDICATIONS: Or Or 0.9% NaCl flush bag, Intravenous, CONTINUOUS PRN acetaminophen (Tylenol) tablet 1,000 mg, Enteral Tube, q6h PRN bisacodyl (Dulcolax) suppository 10 mg, Rectal, QDAY PRN dextrose 10 % IV bolus, Intravenous, PRN dextrose 10 % IV bolus, Intravenous, PRN glucagon (Glucagen) injection 1 mg, Subcutaneous, PRN glucose (Diabetic Use) oral gel, Oral, PRN ondansetron (Zofran) injection 4 mg, Intravenous, q4h PRN senna (Senokot) tablet 8.6 mg, Oral, BID PRN Assessment --Group G strep septicemia with septic shock, concern for left thigh nec fasc or cellulitis with myositis and Streptococcal toxic shock syndrome CK and CRP not majorly elevated, CK seems to have peaked Weaned off pressors IVIG 10/11-10/12 CT WITHOUT contrast without evidence for gas 10/11 and 10/14. Surgery evaluated and both times recommended no surgery CT C/A/P non-specific peripancreatic finding was also reported on outside initial CT and his lipasewas normal on admit. Liver enzymes not consistent with a hepatobiliary process. Pleural effusion likely from volume state I do not think there is an additional process for how sick he is. I think this was streptococcal toxic shock from left leg in a cirrhosis patient that developed RADHA. His leg does not currently look great but in several ways it looks better than the first 3 days of admission. He is going to have a very slow recovery. CRP about 60% better over the one week since admission. 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 [id number], on chronic suppressive doxycycline 100mg Afib, hx of DVT on eliquis BPH on flomax RADHA on CKD, slightly improved MICHAUD and cirrhosis with small lower esophageal varices on 2022 EGD, portal hypertensive gastropathy Hx of PUD with bleeding COPD Obesity, BMI 34 Plan -Continue ceftriaxone 2g daily, most likely for another 4 days -follow neuro eval -nephrology managing RADHA -resume chronic doxycycline 100mg daily ppx Aneta Campbell DO * Tiffany Fortune MD - 10/20/2023 8:21 AM CDT Admit Date: 10/12/2023 4:19 AM Hospital Day: 8 Follow Up Acute respiratory failure, AMS New Symptoms Patient still lethargic but follows commands . Patient is much more awake, less confused, and oriented to time and place Data Vitals: 10/20/23 0400 10/20/23 0751 10/20/23 0752 10/20/23 0808 BP: 157/97 Pulse: 89 84 77 Resp: 22 22 Temp: 98.1 ??F (36.7 ??C) SpO2: 95% 96% 95% 94% Weight: Height: Temp (30hrs) Max:98.2 ??F (36.8 ??C) Intake/Output Summary (Last 24 hours) at 10/20/2023 0821 Last data filed at 10/20/2023 0400 Gross per 24 hour Intake 1967.58 ml Output 1350 ml Net 617.58 ml Medications have been reviewed Exam General appearance: a no distress HEENT: Grossly unremarkable Heart: regular rhythm, normal S1 and S2, Lungs: breath sounds clear Abdomen: soft Extremities: + edema Neuro: No focal deficits. Recent Labs Component Name 10/20/23 0353 10/19/23 0336 10/17/23 0358 WBC 14.4* 18.0* 16.7* HGB 12.8* 12.3* 11.7* HCT 40.2 38.8 38.0* PLTCOUNT 176 164 133* Recent Labs Component Name 10/20/23 0353 10/19/23 1639 10/19/23 0336 10/18/23 0745 03/08/23 1347 08/23/22 2024 02/09/22 0921 08/03/21 1025 01/09/21 1055 09/05/20 1325 02/03/19 0106 09/19/17 0243 09/18/17 0003 SODIUM 154* 155* 156* 153* - - - 139 137 140 - - - NA - - - - - 141 - - - - - 138 140 POTASSIUM 2.9* - 3.3* 3.7 - 4.6* - 4.7 4.4 4.2 - 4.9* 3.4* CHLORIDE 120* - 120* 113* - - - 102 102 103 - - - CO2 27 - 27 28 - 26 - 27 26 28 - 34* 35* BUN 49* - 63* 81* - 26 - 41* 50* 27* - 26 25 CREATININE 1.67* - 1.83* 2.34* - 1.60* - 1.89* 2.07* 1.46* - 0.6 0.6 GLUCOSE 138* - 120* 152* - 113 - 124* 144* 109* - 153* 135* CALCIUM 9.2 - 9.3 9.5 - 10.3* - 9.6 9.7 9.9 - 9.1 9.0 EGFR 43* - 38* 28* - 45* - 35* 31* 48* - >60 >60 EGFRAFR - - - - - - - 40* 36* 55* - - - - = values in this interval not displayed. @ Recent Labs Component Name 10/17/23 2117 10/17/23 1434 10/17/23 0811 10/17/23 0420 10/12/23 0508 09/10/17 0557 09/09/17 0841 09/09/17 0422 FIO2 - 30.0 40.0 40.0 - 40.0 100.0 100.0 PH 7.39 7.45 7.32* 7.32* - 7.45 7.51* 7.41 PCO2 57* 48* 61* 61* - 44 38 45 BE 7.8* 8.2* 3.8* 3.9* - 5.4* 5.7* 2.4* HCO3 - - - - - 30.0* 29.2* 27.4* PO2 135* 86 146* 110* - 80 274* 65* O2SAT 100 99 99 99 - - - - EYS2HQM 34.5* 33.4* 31.4* 31.4* - - - - - = values in this interval not displayed. Assessment/Plan: Acute hypercapnic respiratory failure: Patient is currently on BiPAP with an IPAP of 30 and EPAP of14 with 40 percent oxygen bled in. Significant improvement with resolution of respiratory acidosis but has chronic hypercapnia. Continue BIPAP at HS for now and place on NC during the day as tolerated Altered mental status: Much more awake and follows commands. Presumed to be secondary to hypercapnic respiratory failure. CT Head without acute pathology Bilateral pleural effusion with attendant atelectasis: CXR 10/17/2023 shows significant improvement with small let pleural effusion. Repeat CXR in am Hypernatremia presumably secondary to diuresis. Patient on D5W at 75cc/hour. Nephrology has been consulted Group G Streptococcus bacteremia per blood cultures at outside facility: Patient is currently on ceftriaxone and doxycycline. Id is following patient Excessive narcotic use during this hospitalization: Patient is now off Narcan drip Anasarca during the hospitalization: Echocardiogram showed EF of 45 percent, BNP remains elevated but patient is clinically less fluid overloaded. Diuretics are being held secondary to hypernatremia History of atrial fibrillation: Patient is on beta-fe and Eliquis Code status: Full * Kim Santizo - 10/20/2023 7:55 AM CDT Problem: Impaired Gas Exchange Goal: Resp rate/effort will be within specified limits Description: To maintain oxygen within normal parameters. RT to monitor. Flowsheets Taken 10/20/2023 0752 SpO2: 95 % Taken 10/20/2023 0751 Resp: 22 Note: MR Keys To maintain oxygenation within normal parameters. RT to monitor. * Tamara Bauman MD - 10/20/2023 7:54 AM CDT Images from the original note were not included. Nephrology Progress Note Admit Date: 10/12/2023 4:19 AM Hospital Day: 8 Assessment: Acute kidney injury-ATN secondary shock status and hypotension + ELLIOTT -creatinine 2.94 on 10/12 -creatinine 1.8 08/2022 -creatinine baseline 1.5 since 2019 Hyperkalemia Metabolic acidosis Sepsis Possible lower extremity cellulitis Shock status-possibly sepsis Acute hypoxic respiratory failure History of COPD History of AFib History of CHF History of cirrhosis secondary to MICHAUD Full Code *PCP is Provider Unknown* Recommendations: SCr slightly better today K repletion noted Na remains elevated Continue d5w for now Would add FWF if able to tolerate tube feeds Repeat RFP ordred for today at 3pm Would hold further lasix for today Monitor UOP Maintain Cabral catheter Checked urine lytes Antibiotics per ID Gabapentin held Surgical team following Avoid hypotension Avoid further IV contrast and NSAIDs No acute indications for dialysis Reason for Consult Acute kidney injury Clinical Course 10/12/2023: Admitted 10/12: Renal consult 10/13: Urine output 760 cc in last 24 hours. Off pressors. On low-rate LR 10/14: Somnolent. Cabral removed early this morning. 10/15: Cabral replaced due to continued urinary retention. 10/16: TONGUE AND QUARTER STITCHER called overnight due to AMS. Given narcan, placed on BiPAP, transferred to step down for closer monitoring. Remains on narcan drip this morning. 10/17: remains lethargic. 10/18: More awake today, though still confused 10/19: More awake and interactive New Symptoms No voiced complaints. General: awake Lungs: no distress at rest on O2 via NC Extremities: no clubbing or cyanosis, no edema. Redness bilateral lower extremity-more indurated redness on the left upper thigh Circulation: no central access Genitalia: Cabral present Data Vitals: 10/20/23 0752 10/20/23 0800 10/20/23 0808 10/20/23 0844 BP: 133/90 133/90 Pulse: 77 93 Resp: 26 Temp: 98.1 ??F (36.7 ??C) SpO2: 95% 95% 94% Weight: Height: Supplemental Oxygen (last filed value): O2 L/M: 1 (10/20/23 0808) Temp (30hrs) Max:98.1 ??F (36.7 ??C) Intake/Output Summary (Last 24 hours) at 10/20/2023 1016 Last data filed at 10/20/2023 0400 Gross per 24 hour Intake 1967.58 ml Output 1350 ml Net 617.58 ml Admission weight: Weight: 111.1 kg (244 lb 14.9 oz) (10/12/23 0507) Most recent weight: Weight: 111.1 kg (245 lb) (10/14/23 0643) Recent Labs Component Name 10/20/2335210/19/23 1639 10/19/236 10/18/23 0745 10/17/23 1939 10/17/23 1421 SODIUM 154* 155* 156* 153* 149* 154* POTASSIUM 2.9* - 3.3* 3.7 3.9 4.5 CHLORIDE 120* - 120* 113* 111* 111* CO2 27 - 27 28 31* 31* BUN 49* - 63* 81* 86* 92* CREATININE 1.67* - 1.83* 2.34* 2.43* 2.34* GLUCOSE 138* - 120* 152* 106* 91 CALCIUM 9.2 - 9.3 9.5 9.5 9.3 ALBUMIN 2.5* - 2.5* 2.5* 2.6* 2.6* PHOS 1.7* - - - 2.8 3.4 Recent Labs Component Name 10/20/233 10/19/236 10/18/23 0745 EGFR 43* 38* 28* Recent Labs Component Name 10/20/2335210/19/23 0336 10/18/23 0745 MAGNESIUM 2.4 2.6 2.6 Recent Labs Component Name 10/20/233 10/19/236 10/17/23 0358 WBC 14.4* 18.0* 16.7* HGB 12.8* 12.3* 11.7* HCT 40.2 38.8 38.0* PLTCOUNT 176 164 133* Recent Labs Component Name 10/15/23 0444 10/14/23 0337 10/13/23 1153 CK 440* 786* 905* MEDICATIONS FOR CURRENT ENCOUNTER: SCHEDULED MEDICATIONS: albuterol-ipratropium (Duo-Neb) nebulizer solution 3 mL, Inhalation, q6h apixaban (Eliquis) tablet 5 mg, Enteral Tube, BID aspirin chew tablet 81 mg, Enteral Tube, QDAY cefTRIAXone (Rocephin) 2,000 mg in 0.9% NaCl IV 50 mL IVPB, Intravenous, q24h docusate sodium (Colace) capsule 100 mg, Oral, BID doxycycline monohydrate capsule 100 mg, Oral, QDAY insulin aspart (NovoLOG) pen 0-12 Units, Subcutaneous, 4X/day - AC & HS lactulose (Chronulac) solution 20 g, Oral, 4X/day metoprolol tartrate IR (Lopressor) tablet 25 mg, Enteral Tube, BID pantoprazole EC (Protonix) tablet 40 mg, Oral, QDAY potassium - sodium phosphates (Phos-Nak) powder 1 packet, Oral, TID WC rifAXIMin (Xifaxan) tablet 550 mg, Enteral Tube, BID venlafaxine XR 24hr (Effexor XR) capsule 37.5 mg, Oral, QDAY WITH BREAKFAST [COMPLETED] potassium chloride 20 mEq in 100 mL SW bolus, Intravenous, Once CONTINUOUS MEDICATIONS: 0.9% NaCl flush bag, Intravenous, CONTINUOUS PRN dextrose 5 % infusion, Intravenous, Continuous PRN MEDICATIONS: Or Or 0.9% NaCl flush bag, Intravenous, CONTINUOUS PRN acetaminophen (Tylenol) tablet 1,000 mg, Enteral Tube, q6h PRN bisacodyl (Dulcolax) suppository 10 mg, Rectal, QDAY PRN dextrose 10 % IV bolus, Intravenous, PRN dextrose 10 % IV bolus, Intravenous, PRN glucagon (Glucagen) injection 1 mg, Subcutaneous, PRN glucose (Diabetic Use) oral gel, Oral, PRN ondansetron (Zofran) injection 4 mg, Intravenous, q4h PRN senna (Senokot) tablet 8.6 mg, Oral, BID PRN * Anita Churchill RN - 10/20/2023 7:30 AM CDT James Sanford SITUATIONAL AWARENESS NOTE PATIENT'S NAME: José Miguel Keys BIRTHDATE: 1950 CODE STATUS: Full Code PRIMARY CONCERN FOR SITUATIONAL AWARENESS: Behavior Concerns Vital Signs OBSERVATIONS: Patient in bed, A & O X 3, denies CP, SOB, or complaints at present, LACY, weak, follow simple commands, on 1 L NC sat's 94%, SOB with any exertion, tele shows afib 93, last BP 133/90, 2+generalized edema, repositioned, oral care given. PLAN: Continue current plan as detailed in daily progress note. OUTCOME: Remains in current room ESCALATION PLAN: If patient begins to clinically deteriorate or there are any significant changes please call a rapid response Plan discussed with - . Everyone is in agreement with the plan. Patient will be removed from the HEAD PAPER TESTER list. 30 minutes spent on patient assessment, review of relevant data, and documentation. * Cheri Evans RN - 10/20/2023 6:03 AM CDT 10/20/23 0300 Rex Scale - Adult Sensory Perception 3 Moisture 3 Activity 1 Mobility 3 Nutrition 2 Friction and Shear 2 Total Score 14 Bath completed. 2 RN skin check done. Excoriation noted on pt's scrotum. Bottom pink and blanchable. * Yulia Dietz RCP - 10/20/2023 4:18 AM CDT Problem: Impaired Gas Exchange Goal: Resp rate/effort will be within specified limits Description: To maintain oxygen within normal parameters. RT to monitor. Outcome: Progressing Flowsheets Resp: 25 SpO2: 98 % Note: José Miguel wore bipap mostly overnight. Sats maintain 92% or above. Plan: continue to encourage nightly use. * Geraldine Gonzalez OT - 10/20/2023 2:15 AM CDT Patient chart reviewed for history of presenting illness, diagnosis and medical/ surgical history. Spoke to DONTAE Liao who consents to therapy, upon approaching room, he is starting bedside testing. Will hold and follow up at later time/date. Thank you [phone] * Cheri Evans RN - 10/19/2023 10:44 PM CDT Problem: Impaired Gas Exchange Goal: Resp rate/effort will be within specified limits Description: To maintain oxygen within normal parameters. RT to monitor. Outcome: Progressing Problem: Oral Intake: Inadequate oral intake Goal: Total intake will meet estimated nutrient needs Outcome: Progressing Problem: Fall Risk Goal: Fall risk and fall related injury risk are minimized (interventions related to the fall risk can be found in the flowsheet documentation) Outcome: Progressing Problem: Pain/Discomfort Goal: Patient exhibits reduced pain/discomfort as evidenced by pain scores Outcome: Progressing Goal: Patient uses pharmacological and non-pharmacological pain management strategies. Outcome: Progressing Goal: Patient verbalizes acceptable level of pain relief and ability to engage in desired activity. Outcome: Progressing Problem: Ineffective breathing pattern related to obstructive sleep apnea Goal: Maintains optimal sleep pattern, as evidenced by relaxed breathing at normal rate and depth. Outcome: Progressing Goal: Adheres to CPAP (Continuous Positive Airway Pressure) device regimen as prescribed. Outcome: Progressing Problem: Sleep deprivation related to sleep apnea. Goal: Achieves restful, refreshing sleep pattern. Outcome: Progressing Problem: Mobility Goal: LTG - Patient will ambulate household distance Description: Ind with AAD and supervision Outcome: Progressing Goal: STG - Patient will tolerate ____ repetitions of exercises. Description: 10-20 repetitions of LE exercises for strength and endurance. Outcome: Progressing Problem: Transfers Goal: LTG - Patient will transfer from one surface to another Description: Ind with AAD Outcome: Progressing Goal: STG - Patient will perform bed mobility Description: Min assist Outcome: Progressing Problem: General Goal: STG-Patient will Description: Tolerate sitting EOB for 10 minutes with good sitting balance in preparation for seated ADLs. Outcome: Progressing Goal: STG-Patient will Description: Complete oral/facial hygiene with set up assist Outcome: Progressing Goal: STG-Patient will Description: Perform UB dressing tasks with set up assist Outcome: Progressing Problem: Swallowing Goal: STG - Patient will tolerate therapeutic trials of recommended consistency without clincial signs and symptoms of aspiration Description: To determine candidacy for diet advancement and/or need for instrumental assessment ofswallowing 1-10 visits Outcome: Progressing Goal: LTG - Patient will tolerate the least restrictive diet consistency to allow for safe consumption of daily meals Description: With adequate mastication, oral clearance, and without overt clinical signs of aspiration by discharge Outcome: Progressing Problem: Potential for Urinary Catheter-Associated Infection Goal: Signs and Symptoms of urinary catheter-associated infection are avoided Outcome: Progressing Goal: Normal urinary patterns are established within parameters of age and disease process Outcome: Progressing * Silas Newman RN - 10/19/2023 8:20 PM CDT SITUATIONAL AWARENESS NOTE PATIENT'S NAME: José Miguel Keys BIRTHDATE: 1950 CODE STATUS: Full Code PRIMARY CONCERN FOR SITUATIONAL AWARENESS: Behavior Concerns Vital Signs OBSERVATIONS: Pt laying in bed with eyes open and family at bedside. Pt more alert today. Pt A&Ox2 and following commands. Pt more verbal today. Family also states pt has been more alert and communicative today. Pt currently back on bipap. Pt complaining of some back pain but no other pain reported. Pt's overall appearance looks improved over previous days. VS BP 142/83, temp 97.8, HR 90 bpm afib, 25 RR, 98% on Bipap with diminished lung sounds. 0550: Pt asleep. Primary RN states no issues with pt during the night. Pt was on bipap most of the night, except brief time he wanted it off. VSS. Will continue to monitor. PLAN: Continue current plan as detailed in daily progress note. Continue Critical Response Nurse rounding OUTCOME: Remains in current room ESCALATION PLAN: If patient begins to clinically deteriorate or there are any significant changes please call a rapid response. Plan discussed with - nursing, hospitalist, and patient. Everyone is in agreement with the plan. 40 minutes spent on patient assessment, review of relevant data, and documentation. * Jayme Rodriguez MD - 10/19/2023 8:13 PM CDT Internal Medicine Progress Note -Hospitalist Admit Date: 10/12/2023 4:19 AM Hospital Day: 7 Clinical Course: New Symptoms: Awake but lethargic, can greet back. He looks to be more awake today. But maybe more agitated No other issues reported Objective: Vitals: 10/19/23 1200 10/19/23 1600 10/19/23 19410/19/231942 BP: Pulse: 84 86 Resp: 25 Temp: 97.9 ??F (36.6 ??C) 97.8 ??F (36.6 ??C) SpO2: 98% 98% Weight: Height: General appearance: lethargic but woke up and replied Left pupil is bigger than right Heart: normal rate Lungs: breath sounds normal and symmetric; no rales or wheezes Abdomen: soft without mass, non-tender, with normal bowel sounds Extremities: no clubbing, cyanosis or edema, chronic venous insufficiency changes on bilateral calves. Left thigh is red and tender. Intake/Output Summary (Last 24 hours) at 10/19/20232012 Last data filed at 10/19/2023 1700 Gross per 24 hour Intake 1907.58 ml Output 1400 ml Net 507.58 ml Current Medications: MEDICATIONS FOR CURRENT ENCOUNTER: SCHEDULED MEDICATIONS: albuterol-ipratropium (Duo-Neb) nebulizer solution 3 mL, Inhalation, q6h apixaban (Eliquis) tablet 5 mg, Enteral Tube, BID aspirin chew tablet 81 mg, Enteral Tube, QDAY cefTRIAXone (Rocephin) 2,000 mg in 0.9% NaCl IV 50 mL IVPB, Intravenous, q24h docusate sodium (Colace) capsule 100 mg, Oral, BID insulin aspart (NovoLOG) pen 0-12 Units, Subcutaneous, 4X/day - AC & HS lactulose (Chronulac) solution 20 g, Oral, 4X/day metoprolol tartrate IR (Lopressor) tablet 25 mg, Enteral Tube, BID pantoprazole EC (Protonix) tablet 40 mg, Oral, QDAY rifAXIMin (Xifaxan) tablet 550 mg, Enteral Tube, BID venlafaxine XR 24hr (Effexor XR) capsule 37.5 mg, Oral, QDAY WITH BREAKFAST [COMPLETED] clindamycin (Cleocin) 900 mg in 50 mL D5W IVPB, Intravenous, q8h [START ON 10/20/2023] doxycycline monohydrate capsule 100 mg, Oral, QDAY CONTINUOUS MEDICATIONS: 0.9% NaCl flush bag, Intravenous, CONTINUOUS PRN dextrose 5 % infusion, Intravenous, Continuous PRN MEDICATIONS: Or Or 0.9% NaCl flush bag, Intravenous, CONTINUOUS PRN acetaminophen (Tylenol) tablet 1,000 mg, Enteral Tube, q6h PRN bisacodyl (Dulcolax) suppository 10 mg, Rectal, QDAY PRN dextrose 10 % IV bolus, Intravenous, PRN dextrose 10 % IV bolus, Intravenous, PRN glucagon (Glucagen) injection 1 mg, Subcutaneous, PRN glucose (Diabetic Use) oral gel, Oral, PRN ondansetron (Zofran) injection 4 mg, Intravenous, q4h PRN senna (Senokot) tablet 8.6 mg, Oral, BID PRN Data: Recent Labs Component Name 10/19/23 1639 10/19/23 0336 10/18/23 0745 10/17/23 1939 SODIUM 155* 156* 153* 149* POTASSIUM - 3.3* 3.7 3.9 BUN - 63* 81* 86* CREATININE - 1.83* 2.34* 2.43* GLUCOSE - 120* 152* 106* Recent Labs Component Name 10/19/23 0336 10/17/23 0358 10/16/23 0355 WBC 18.0* 16.7* 18.7* HGB 12.3* 11.7* 11.7* HCT 38.8 38.0* 36.9* PLTCOUNT 164 133* 128* CT FEMUR LEFT WO CONTRAST Result Date: 10/12/2023 PROCEDURE: CT FEMUR LEFT WO CONTRAST DATE/TIME OF EXAM: 10/12/2023 10:00 AM CLINICAL INFORMATION: None relevant/not provided if blank. Indication: A41.89: Other specified sepsis (HCC) Additional History: Pain and swelling in left thigh COMPARISON: None. TECHNIQUE: CT of the left femur was performed utilizing standard protocol. CT dose reduction technique was used, including Automated Exposure Control. FINDINGS: There is a small left knee joint effusion. Severe degenerative change is seen in all 3compartments of the left knee. There is moderate edema in the skin and subcutaneous soft tissues along the medial aspect of the left thigh consistent with a moderate cellulitis. No gas is seen in the soft tissues. No inflammatory change is seen in the fascial planes between the muscles of the left thigh. There is no evidence for a drainable abscess. No swelling of the muscles in the left thigh isseen. There is a left total hip arthroplasty. No evidence for a hardware complication. IMPRESSION: There is a moderate cellulitis in the skin and subcutaneous soft tissues along the medial aspect of the left thigh. No gas is seen in the soft tissues. No drainable abscess collection is seen. No evidence for inflammatory change in the fascial planes of the left thigh. 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 > Interpreting Provider: Jose Alberto Kemp MD on 10/12/2023 11:59 AM XR CHEST 1VW PORTABLE Result Date: 10/12/2023 PROCEDURE: XR CHEST 1VW PORTABLE DATE/TIME OF EXAM: 10/12/2023 5:55 AM INDICATION: J96.00: Acute respiratory failure, unspecified whether with hypoxia or hypercapnia (HCC) COMPARISON: May 01, 2019ADDITIONAL CLINICAL INFORMATION (if provided): Ordering Provider Reason For Exam: Findings: There is an ET tube in the distal trachea less than 3 cm from the mattie. There is a right internal jugularcatheter projecting over the superior vena cava and a nasogastric tube is seen entering the upper abdomen The heart is borderline enlarged. The aorta is normal in caliber. The patient is severely rotated to the left limiting detail. There is some mild pleural and parenchymal change left base and blunting of the left costophrenic sulcus There is no confluent infiltrate .. There is no pneumothorax.There is no mass or adenopathy.. IMPRESSION: Tubes and lines in adequate position without a pneumothorax Oral and parenchymal changeat the left base slightly progressive in the interval > Interpreting Provider: Alberto Atwood MDon 10/12/2023 8:23 AM Assessment and Plan Continue IV antibiotics Area of upper thigh looks to be clinically better Increase D5, follow-up sodium, discussed with Nephrology Altered mental status Patient had a rapid yesterday for altered mental status. It was thought to be due to hypercapnia and opioids. He was started on Narcan drip and placed on BiPAP. He is still very lethargic. Differential for altered mental status is very broad. Possible hypercapnia versus opioid overdose versus hepatic encephalopathy versus encephalitis versus seizure versus metabolic encephalopathy Repeat ABG shows compensated respiratory acidosis. Monitor on BiPAP. Repeat ABG in the afternoon. Pulmonology on board. CT head without any acute abnormalities. He does have cirrhosis. Started on Xifaxan and lactulose. Ammonia pending. Neurology consulted. Appreciate recommendations. Septic shock POA Left thigh cellulitis Group G Strep bacteremia Leukocytosis secondary to above Lactic acidosis secondary to above Patient transferred from outside facility in septic shock. 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 Labs significant for leukocytosis and lactic acidosis. Blood cultures at outside facility reported as GPC. Speciation pending 10/11: CT scan of the thigh shows: Moderate cellulitis in the skin and subcutaneous soft tissues along the medial aspect of the left thigh. No gas. No drainable abscess. No evidence of inflammatory change in the facial planes. 10/14: I called the surgery team for repeat evaluation. They suggested to get repeat CT. It shows progressive diffuse subcutaneous edema of the left thigh but no organized fluid collection, no soft tissue gas collection. Continue with IV ceftriaxone and clindamycin Surgery and Infectious Disease on board. Acute on chronic hypoxemic respiratory failure HFpEF COPD Patient has a history of CHF and COPD. Initially intubated for worsening respiratory status. Extubated on 10/11. Continue with breathing treatment Goal-directed medical therapy held Atrial fibrillation Restarted on beta-fe and Eliquis RADHA with CKD Likely a combination of ATN in the setting of shock and contrast induced nephropathy Monitor BMP Nephrology on board Hypernatremia Increase D5 Follow-up sodium History of cirrhosis secondary to MICHAUD. Monitor LFTs Patient's Functional Baseline prior to admit: independent Discharge Planning to Next Site of Care: Other: tbd Anticipated discharge date: tbd READMISSION RISK SCORE is 15 at 8:13 PM 10/19/2023. DVT prophylaxis: heparin Full Code Jayme Rodriguez MD 10/19/2023 8:13 PM Portions of this note may be dictated using voice recognition software. Variances in spelling and vocabulary are possible and unintentional. Not all errors are caught/corrected. Please notify the author if any discrepancies are noted or if the meaning of any statement is not clear. These grammatical oversights have no impact on the medical care provided to the patient. Time in which this note is created does not match the time of rounding/clinical exam. * Eleazar Wellington RN - 10/19/2023 4:36 PM CDT SITUATIONAL AWARENESS NOTE PATIENT'S NAME: José Miguel Keys BIRTHDATE: 1950 CODE STATUS: Full Code PRIMARY CONCERN FOR SITUATIONAL AWARENESS: Rapid Response within the past 48 hours OBSERVATIONS: Pt admitted on 10/11 w/sepsis shock. Pt left ICU for cardiac tele 10/12. Rapid 4am 10/15 For lethargy moved back to stepdown and placed on BIpap . He was taken off BiPap this am at 08 and placed on Nasal canula . He has been on NC 1Liter most of the day . Pt more alert today oriented x2-3.Cabral and FMS still in place . Last vitals 150/73 hr103 97% ON 1lnc TEMP 97.8. NA 156 D5W increased to 125. Creatinine improved 1.83 PLAN: Continue current plan as detailed in daily progress note. OUTCOME: Remains in current room ESCALATION PLAN: If patient begins to clinically deteriorate or there are any significant changes please call a rapid response. Plan discussed with - nursing and patient. Everyone is in agreement with the plan. 60 minutes spent on patient assessment, review of relevant data, and documentation. * Larry Tao RN - 10/19/2023 3:39 PM CDT Problem: Fall Risk Goal: Fall risk and fall related injury risk are minimized (interventions related to the fall risk can be found in the flowsheet documentation) Outcome: Progressing Problem: Pain/Discomfort Goal: Patient exhibits reduced pain/discomfort as evidenced by pain scores Outcome: Progressing Problem: Potential for Urinary Catheter-Associated Infection Goal: Signs and Symptoms of urinary catheter-associated infection are avoided Outcome: Progressing * Tamara Bauman MD - 10/19/2023 2:51 PM CDT Images from the original note were not included. Nephrology Progress Note Admit Date: 10/12/2023 4:19 AM Hospital Day: 7 Assessment: Acute kidney injury-ATN secondary shock status and hypotension + ELLIOTT -creatinine 2.94 on 10/12 -creatinine 1.8 08/2022 -creatinine baseline 1.5 since 2019 Hyperkalemia Metabolic acidosis Sepsis Possible lower extremity cellulitis Shock status-possibly sepsis Acute hypoxic respiratory failure History of COPD History of AFib History of CHF History of cirrhosis secondary to MICHAUD Full Code *PCP is Provider Unknown* Recommendations: SCr slightly better today Na remains Continue d5w for now Would add FWF if able to tolerate tube feeds Repeat sodium ordered for later today Would hold further lasix for today Robust UOP yesterday Maintain Cabral catheter Checked urine lytes Antibiotics per ID Gabapentin held Surgical team following Avoid hypotension Avoid further IV contrast and NSAIDs No acute indications for dialysis Reason for Consult Acute kidney injury Clinical Course 10/12/2023: Admitted 10/12: Renal consult 10/13: Urine output 760 cc in last 24 hours. Off pressors. On low-rate LR 10/14: Somnolent. Cabral removed early this morning. 10/15: Cabral replaced due to continued urinary retention. 10/16: TONGUE AND QUARTER STITCHER called overnight due to AMS. Given narcan, placed on BiPAP, transferred to step down for closer monitoring. Remains on narcan ip this morning. 10/17: remains lethargic. 10/18: More awake today, though still confused New Symptoms Asking for water. General: awake though confused Heart: regular rhythm, S1S2, without rub Lungs: breath sounds diminished; no wheezes or crackles; no distress at rest on O2 via NC Abdomen: soft without mass, non-tender, with bowel sounds Extremities: no clubbing or cyanosis, no edema. Redness bilateral lower extremity-more indurated redness on the left upper thigh Circulation: no central access Genitalia: Cabral present Data Vitals: 10/19/23 1105 10/19/23 1106 10/19/23 1107 10/19/23 1200 BP: 146/77 150/73 Pulse: 103 Resp: Temp: 97.9 ??F (36.6 ??C) SpO2: 95% 97% Weight: Height: Supplemental Oxygen (last filed value): O2 L/M: 1 (10/19/23 1106) Temp (30hrs) Max:98.5 ??F (36.9 ??C) Intake/Output Summary (Last 24 hours) at 10/19/2023 1451 Last data filed at 10/19/2023 1200 Gross per 24 hour Intake 1255.47 ml Output 3300 ml Net -2044.53 ml Admission weight: Weight: 111.1 kg (244 lb 14.9 oz) (10/12/23 0507) Most recent weight: Weight: 111.1 kg (245 lb) (10/14/23 0643) Recent Labs Component Name 10/19/23 0336 10/18/23 0745 10/17/23 1939 10/17/23 1421 10/16/23 0355 10/15/23 0444 SODIUM 156* 153* 149* 154* - 141 POTASSIUM 3.3* 3.7 3.9 4.5 - 5.2* CHLORIDE 120* 113* 111* 111* - 108* CO2 27 28 31* 31* - 24 BUN 63* 81* 86* 92* - 81* CREATININE 1.83* 2.34* 2.43* 2.34* - 2.95* GLUCOSE 120* 152* 106* 91 - 115* CALCIUM 9.3 9.5 9.5 9.3 - 9.0 ALBUMIN 2.5* 2.5* 2.6* 2.6* - 2.5* PHOS - - 2.8 3.4 - 5.3* - = values in this interval not displayed. Recent Labs Component Name 10/19/23 0336 10/18/23 0745 10/17/23 1939 EGFR 38* 28* 27* Recent Labs Component Name 10/19/23 0336 10/18/23 0745 10/17/23 0336 MAGNESIUM 2.6 2.6 2.7* Recent Labs Component Name 10/19/23 0336 10/17/23 0358 10/16/23 0355 WBC 18.0* 16.7* 18.7* HGB 12.3* 11.7* 11.7* HCT 38.8 38.0* 36.9* PLTCOUNT 164 133* 128* Recent Labs Component Name 10/15/23 0444 10/14/23 0337 10/13/23 1153 CK 440* 786* 905* MEDICATIONS FOR CURRENT ENCOUNTER: SCHEDULED MEDICATIONS: albuterol-ipratropium (Duo-Neb) nebulizer solution 3 mL, Inhalation, q6h apixaban (Eliquis) tablet 5 mg, Enteral Tube, BID aspirin chew tablet 81 mg, Enteral Tube, QDAY cefTRIAXone (Rocephin) 2,000 mg in 0.9% NaCl IV 50 mL IVPB, Intravenous, q24h docusate sodium (Colace) capsule 100 mg, Oral, BID insulin aspart (NovoLOG) pen 0-12 Units, Subcutaneous, 4X/day - AC & HS lactulose (Chronulac) solution 20 g, Oral, 4X/day metoprolol tartrate IR (Lopressor) tablet 25 mg, Enteral Tube, BID pantoprazole EC (Protonix) tablet 40 mg, Oral, QDAY rifAXIMin (Xifaxan) tablet 550 mg, Enteral Tube, BID venlafaxine XR 24hr (Effexor XR) capsule 37.5 mg, Oral, QDAY WITH BREAKFAST [COMPLETED] clindamycin (Cleocin) 900 mg in 50 mL D5W IVPB, Intravenous, q8h [START ON 10/20/2023] doxycycline monohydrate capsule 100 mg, Oral, QDAY CONTINUOUS MEDICATIONS: 0.9% NaCl flush bag, Intravenous, CONTINUOUS PRN dextrose 5 % infusion, Intravenous, Continuous PRN MEDICATIONS: Or Or 0.9% NaCl flush bag, Intravenous, CONTINUOUS PRN acetaminophen (Tylenol) tablet 1,000 mg, Enteral Tube, q6h PRN bisacodyl (Dulcolax) suppository 10 mg, Rectal, QDAY PRN dextrose 10 % IV bolus, Intravenous, PRN dextrose 10 % IV bolus, Intravenous, PRN glucagon (Glucagen) injection 1 mg, Subcutaneous, PRN glucose (Diabetic Use) oral gel, Oral, PRN ondansetron (Zofran) injection 4 mg, Intravenous, q4h PRN senna (Senokot) tablet 8.6 mg, Oral, BID PRN * Makayla Salazar RN - 10/19/2023 1:41 PM CDT Care Coordination Progress Note Anticipated level of care at discharge: Care Home - Skilled Facility, Home Health Care Comment: see progress sect for all snf referrals made: Anticipated level of care provider: None: Anticipated Discharge Date: 10/21/23: Discharge Plan: see above, pt with NGT, (GJ tube bar captain noted), IV abx, IVF's at 75ml/hr, lactulose, FMS, SW following for SNF in [place] once medically stable per family request. Orientation Level: Oriented to Person;Oriented to Place;Disoriented to Time;Disoriented to Situation: Family Support (Name and Phone): Extended Emergency Contact Information Primary Emergency Contact: Trinity Keys Address: [address] [place] [address] [place] [address] [facility] Mobile Relation: Spouse City Manager needed? No Transportation at Discharge: Ambulance: READMISSION RISK SCORE is 15 at 1:41 PM 10/19/2023.: Name: Makayla, Woodworking Machine Offbearer/RN/BSN * Yanira Macias MD - 10/19/2023 12:24 PM CDT Neurology Progress Note Patient Name José Miguel Keys Days of Admission: 7 Reason for Visit Mental status changes Clinical Course/New Symptoms Patient is a 72 year old male with a history of atrial fibrillation, on Eliquis,CHF, COPD, CKD, coronary artery disease, diabetes,previous DVT, VALENTINA on BiPAP at night who was transferred to our facility secondary to sepsis/ left thigh cellulitis. Rapid response called 10/16/2023 due to increased respiratory distress and mental status changes. 0.4mg narcan given as total of 60mg oxycodone has been given during the last 24 hours. ABG obtained. PH 7.31, CO2 61, HCO3 30.7. CT brain did not show acuteprocess. Mental status continues to improve He is able to follow commands more consistently this morning He wears BiPAP overnight Data Reviewed CT brain without acute process Ammonia level 26 Objective Patient Vitals for the past 24 hrs: Temp Pulse Resp BP SpO2 O2 % (FiO2) 10/19/23 1200 97.9 ??F (36.6 ??C) -- -- -- -- -- 10/19/23 0836 -- -- -- -- 98 % -- 10/19/23 0821 -- 96 18 150/80 100 % -- 10/19/23 0508 -- -- -- -- -- 30 % 10/19/23 0400 98.2 ??F (36.8 ??C) 86 14 125/85 98 % 30 % 10/19/23 0322 -- -- -- -- -- 30 % 10/19/23 0124 -- -- -- -- -- 30 % 10/19/23 0000 98.5 ??F (36.9 ??C) 91 24 147/90 96 % 30 % 10/18/232126 -- -- -- -- -- 30 % 10/18/232124 -- -- -- -- -- 30 % 10/18/232104 -- 91 -- -- -- -- 10/18/231999 98.2 ??F (36.8 ??C) 93 19 134/99 98 % -- 10/18/23 1600 -- 91 23 137/86 99 % -- Labs: Recent Labs Component Name 10/19/23 0336 10/17/23 0358 10/16/23 0355 WBC 18.0* 16.7* 18.7* HGB 12.3* 11.7* 11.7* HCT 38.8 38.0* 36.9* PLTCOUNT 164 133* 128* Recent Labs Component Name 10/19/23 0336 10/18/23 0745 10/17/23 1939 10/17/23 1421 10/17/23 0336 SODIUM 156* 153* 149* - 146* POTASSIUM 3.3* 3.7 3.9 - 5.6* CHLORIDE 120* 113* 111* - 115* CO2 27 28 31* - 20* BUN 63* 81* 86* - 89* CREATININE 1.83* 2.34* 2.43* - 2.51* GLUCOSE 120* 152* 106* - 107* CALCIUM 9.3 9.5 9.5 - 9.0 ALBUMIN 2.5* 2.5* 2.6* - 2.5* ALKPHOS 80 81 - - 73 ALT 38 45 - - 53 AST 31 32 - - 57* TBIL 0.8 1.1 - - 0.5 TPROT 6.8 6.8 - - 7.1 EGFR 38* 28* 27* - 26* - = values in this interval not displayed. Recent Labs Component Name 08/20/20 0000 CHOL 150 TRIG 73 HDL 45 Recent Labs Component Name 10/12/23 0503 03/08/23 1349 08/10/22 1259 INR 1.2* 1.0 1.1 I have reviewed chart and the pertinent images and studies are personally reviewed Past Medical History: Diagnosis Date Actinic keratosis Arthritis Asthma (HCC) Atrial fibrillation, chronic (HCC) Basal cell carcinoma CAD (coronary artery disease) Clotting disorder (HCC) Colitis COPD (chronic obstructive pulmonary disease) (HCC) Diabetes (HCC) DVT (deep venous thrombosis) (HCC) Dyslipidemia Eczema GERD (gastroesophageal reflux disease) Heart attack (HCC) High blood pressure Hx of blood clots Keloid Kidney disease Lentigo maligna melanoma (HCC) MRSA (methicillin resistant staph aureus) culture positive 07/29/2017; 02/04/19; 04/29/2019 07/29/17-Disc- tissue culture MRSA; R hip; nasal swab+ Obstructive sleep apnea VALENTINA (obstructive sleep apnea) Other cirrhosis of liver (HCC) Peripheral neuropathy Psoriasis S/P PICC central line placement 02/13/2019 [facility] VAT R basilic Seizures (HCC) Squamous cell carcinoma VRE (vancomycin resistant enterococcus) culture positive 04/29/2019 rectal swab+ 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 Tobramycin Eye Itching red around the eyes, puffy, itchy Family History Problem Relation Name Age of Onset CAD (Coronary Artery Disease) Mother age 65 Cirrhosis Father Cancer - Breast Neg Hx CVA Neg Hx Hemophilia Neg Hx Cancer - Other Neg Hx Eczema Neg Hx Psoriasis Neg Hx Cancer - Skin, Non Melanoma Neg Hx Cancer - Skin, Melanoma Neg Hx Social History Socioeconomic History Marital status: Spouse name: Not on file Number of children: Not on file Years of education: Not on file Highest education level: Not on file Occupational History Not on file Tobacco Use Smoking status: Former Types: Cigarettes Quit date: 06/06/1981 Years since quittin.3 Smokeless tobacco: Never Vaping Use Vaping Use: Never used Substance and Sexual Activity Alcohol use: No Drug use: No Sexual activity: Not on file Other Topics Concern Not on file Social History Narrative Merged History Encounter [place] war Social Determinants of Health Financial Resource Strain: Low Risk (10/14/2023) Overall Financial Resource Strain (CARDIA) Difficulty of Paying Living Expenses: Not hard at all Food Insecurity: No Food Insecurity (10/14/2023) Hunger Vital Sign Worried About Running Out of Food in the Last Year: Never true Ran Out of Food in the Last Year: Never true Transportation Needs: No Transportation Needs (10/14/2023) PRAPARE - Transportation Lack of Transportation (Medical): No Lack of Transportation (Non-Medical): No Stress: No Stress Concern Present (10/14/2023) [employer] - Occupational Stress Questionnaire Feeling of Stress : Only a little Housing Stability: Low Risk (10/14/2023) Housing Stability Vital Sign Unable to Pay for Housing in the Last Year: No Number of Places Lived in the Last Year: 1 Unstable Housing in the Last Year: No MEDICATIONS FOR CURRENT ENCOUNTER: SCHEDULED MEDICATIONS: albuterol-ipratropium (Duo-Neb) nebulizer solution 3 mL, Inhalation, q6h apixaban (Eliquis) tablet 5 mg, Enteral Tube, BID aspirin chew tablet 81 mg, Enteral Tube, QDAY cefTRIAXone (Rocephin) 2,000 mg in 0.9% NaCl IV 50 mL IVPB, Intravenous, q24h docusate sodium (Colace) capsule 100 mg, Oral, BID insulin aspart (NovoLOG) pen 0-12 Units, Subcutaneous, 4X/day - AC & HS lactulose (Chronulac) solution 20 g, Oral, 4X/day metoprolol tartrate IR (Lopressor) tablet 25 mg, Enteral Tube, BID pantoprazole EC (Protonix) tablet 40 mg, Oral, QDAY rifAXIMin (Xifaxan) tablet 550 mg, Enteral Tube, BID venlafaxine XR 24hr (Effexor XR) capsule 37.5 mg, Oral, QDAY WITH BREAKFAST [COMPLETED] clindamycin (Cleocin) 900 mg in 50 mL D5W IVPB, Intravenous, q8h [START ON 10/20/2023] doxycycline monohydrate capsule 100 mg, Oral, QDAY CONTINUOUS MEDICATIONS: 0.9% NaCl flush bag, Intravenous, CONTINUOUS PRN dextrose 5 % infusion, Intravenous, Continuous PRN MEDICATIONS: Or Or 0.9% NaCl flush bag, Intravenous, CONTINUOUS PRN acetaminophen (Tylenol) tablet 1,000 mg, Enteral Tube, q6h PRN bisacodyl (Dulcolax) suppository 10 mg, Rectal, QDAY PRN dextrose 10 % IV bolus, Intravenous, PRN dextrose 10 % IV bolus, Intravenous, PRN glucagon (Glucagen) injection 1 mg, Subcutaneous, PRN glucose (Diabetic Use) oral gel, Oral, PRN ondansetron (Zofran) injection 4 mg, Intravenous, q4h PRN senna (Senokot) tablet 8.6 mg, Oral, BID PRN Physical Exam General appearance: well developed, in no apparent distress Head: Atraumatic, no obvious abnormality Neck: Normal carotid pulses, no bruits CVS: S1 S2 heard. No murmurs or gallop heard. Resp: Air entry is equal bilaterally without evidence of crackles or rhonchi. Abd: Non tender, non distended and no evidence of organomegaly. Ext: Distal pulses are preserved, no edema Psychiatric: no depression, no anxiety Skin: No rashes, no change of color Neuro Exam: Mental Status: Drowsy, follows simple commands Speech: has BiPAP on, nonverbal Cranial Nerves: 1. (Cranial Nr 2) Fundii - Not able to test, pupil reactive to light 2. (Cranial Nr 3,4,6) Extra Ocular Movements - Intact 3. (Cranial Nr 5) Facial sensation - Equal Bilaterally 4. (Cranial Nr 7) Facial expression - No Facial Asymmetry 5. (Cranial Nr 8) Hearing - Intact to conversation and finger rub 6. (Cranial Nr 9, 10) Voice - No change in quality or pitch Palate - Elevates equally Gag - Present 7. (Cranial Nr 11) Elevate shoulder - Bilaterally without paralysis 8. (Cranial Nr 12) Tongue - No deviation or wasting Motor: Has spontaneous movements in all extremities Sensation: withdrawal to pain Reflexes: DTRs Symmetric 1+ with plantar responses both sides Coordination/Cerebellar: not able to test Gait: not tested. Assessment: 1. Mental status changes Suspect metabolic encephalopathy secondary to infection and respiratory distress Neurologically would like to rule out nonconvulsive seizure and embolic strokes CT brain without acute process 2. Septic shock Left thigh cellulitis Group G strep bacteremia 3. 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 RADHA on CKD 5. History of MICHAUD liver cirrhosis 6. COPD Plan: 1. EEG is pending 2. Continue Eliquis and low dose of ASA 3. Pulmonology follows On BiPAP 4. On Ceftriaxone and Doxycycline 5. Ammonia level checked which is normal Continues with Lactulose 6. Hold off MRI brain since mental status has been better 7. Follow up with exam Yanira Macias MD * Bell Gilliam, ASHWINI/LD - 10/19/2023 11:46 AM CDT Brief Synopsis: Patient is at nutrition risk but does not meet malnutrition criteria. Energy Intake: < 75% of estimated energy requirement for > 7 days Nutrition Plan: Current diet order: NPO Bi weekly wt Tuesday and Recommendations to Physician: recommend tube feeding via ng 2/2 inability to take po safely and pt has been npo/poor po x 7 days Recommend glucerna 1.2 @ 20 ml/hr increase by 10-20 ml Q 8 hours till goal rate 60 ml/hr with 100 ml free h20 Q 4 hours (provides 1728 kcal 86 g protein 1159 ml free h20 plus 600 ml free h20) Discharge Needs: pending clinical course Nutrition Reassessment Changes in condition/Patient Summary: Pt remains lethargic remains unsafe for po Pt with ng nursing reports administering water flushes Pt would benefit from tube feeding Assessment Med/Surg History and Clinical Diagnoses: Fluid and electrolyte disorder: hyperkalemia requiring further monitoring Thrombocytopenia Thrombocytopenia requiring further monitoring Hypoalbuminemia requiring further monitoring Chronic kidney disease: Chronic Kidney Disease, Unspecified Cardiac arrhythmia: Atrial fibrillation, unspecified Congestive Heart Failure Shock: Severe sepsis with shock Obesity Patient receiving mechanical ventilation Weight Review Height: 180.3 cm (5' 10.98 ) Last Weight: 111.1 kg (245 lb) (10/14/23 06) Last Weight Method : Bed scale (10/14/23642) [place] Body Weight IBW/lb (Calculated) Male: 171.904 BMI: Body mass index is 34.19 kg/m??. BMI Range: Obese Class 1 Weight Assessment: no new wt Wt Readings from Last 10 Encounters: 10/14/23 111.1 kg (245 lb) 05/12/23 111.1 kg (245 lb) 03/21/23 110.7 kg (244 lb) 10/07/22 120.7 kg (266 lb) 08/23/22 120.7 kg (266 lb) 08/23/22 120.7 kg (266 lb) 02/23/22 120.2 kg (265 lb) 08/17/21 121.1 kg (267 lb) 12/30/20 114.8 kg (253 lb) 08/26/20 114.9 kg (253 lb 6.4 oz) Patient Vitals for the past 336 hrs: Weight Weight Method 10/14/23 0643 111.1 kg (245 lb) Bed scale 10/12/23 0507 111.1 kg (244 lb 14.9 oz) -- PO INTAKE Current diet order: NPO Food Allergies: Other (Comments) (all Peppers) Last % Meal Taken: 0 % (10/15/23 1845) Current supplement order: ensure 1.5 tid (350 kcal 20 g protein each) Supplement(s) Consumed- Last 48 hours None PO Intake Assessment: pt has been npo GI Concerns: (ng, pt with fms + stool) Chewing/Swallowing: (pt on bipap at night, speech rec npo) Skin/Wound: BLE reddened tender Last Skin Condition: Bruising;Swollen (10/19/23 0800) Pain affecting intake: No Estimated Needs: KCAL: 4802-6032 based on 15-20 kcal/kg actual wt Protein (g): 94 based on 1.2 g/kg ibw Fluid (ml): 1 ml/kcal Needs based on: Kcal/kg- (Comment) Recommended Access Route: TF Labs: Recent Labs Component Name 10/19/23 0336 SODIUM 156* POTASSIUM 3.3* CHLORIDE 120* CO2 27 BUN 63* CREATININE 1.83* GLUCOSE 120* CALCIUM 9.3 ALBUMIN 2.5* ALKPHOS 80 ALT 38 AST 31 TBIL 0.8 TPROT 6.8 EGFR 38* Recent Labs Component Name 10/17/23 1939 10/17/23 1421 10/15/23 0444 PHOS 2.8 3.4 5.3* Recent Labs Component Name 10/13/23 0346 02/03/19 0106 07/14/17 2212 HGBA1C 6.5* 5.8 6.3 Patient Vitals for the past 30 hrs: Glucose Bedside (mg/dL) 10/19/23 0640 128 mg/dL 10/18/23 2105 129 mg/dL 10/18/23 0617 135 mg/dL PERTINENT MEDICATIONS FOR CURRENT ENCOUNTER: SCHEDULED MEDICATIONS: albuterol-ipratropium (Duo-Neb) nebulizer solution 3 mL, Inhalation, q6h apixaban (Eliquis) tablet 5 mg, Enteral Tube, BID aspirin chew tablet 81 mg, Enteral Tube, QDAY cefTRIAXone (Rocephin) 2,000 mg in 0.9% NaCl IV 50 mL IVPB, Intravenous, q24h docusate sodium (Colace) capsule 100 mg, Oral, BID insulin aspart (NovoLOG) pen 0-12 Units, Subcutaneous, 4X/day - AC & HS lactulose (Chronulac) solution 20 g, Oral, 4X/day metoprolol tartrate IR (Lopressor) tablet 25 mg, Enteral Tube, BID pantoprazole EC (Protonix) tablet 40 mg, Oral, QDAY rifAXIMin (Xifaxan) tablet 550 mg, Enteral Tube, BID venlafaxine XR 24hr (Effexor XR) capsule 37.5 mg, Oral, QDAY WITH BREAKFAST [COMPLETED] clindamycin (Cleocin) 900 mg in 50 mL D5W IVPB, Intravenous, q8h [START ON 10/20/2023] doxycycline monohydrate capsule 100 mg, Oral, QDAY CONTINUOUS MEDICATIONS: 0.9% NaCl flush bag, Intravenous, CONTINUOUS PRN dextrose 5 % infusion, Intravenous, Continuous ~~~~~~~~~~~~~~~~~~~~~~~~~~~~~~~~ Nutrition Diagnostic Statement: Inadequate oral intake related to:: decreased ability to consume ortolerate food and/or fluids due to illness as evidenced by:: oral intake insufficient to meet estimated requirements Nutrition Intervention: Meals and snacks:;Collaboration with other providers Education Provided: Not appropriate (10/12/23 1100) Recommendation/Plan: Nutrition recommendation: alter/change nutrition order (initiate tube feeding if unable to take po safely) Monitoring: For initiation of tube feeding vs safe po intake Labs Skin integrity Wt Plan of care Evaluation: Nutrition Goal: Intake will be improved to 75% or greater of meals/snacks Nutrition Goal Timeframe: Throughout stay * Bell Gilliam RD/SALVADOR - 10/19/2023 11:40 AM CDT Problem: Oral Intake: Inadequate oral intake Goal: Total intake will meet estimated nutrient needs Outcome: Not Progressing Pt has been npo x 7 days 2/2 respiratory issues and lethargy * Wendy Arteaga, PT - 10/19/2023 11:40 AM CDT Physical Therapy Treatment Summary Chart review completed. Nursing consented for PT. Explained purpose of PT and patient consented to participate in therapy. RECOMMENDATIONS/PLAN: Continue per POC. PT Discharge Recommendations: Other: (TBD pending pt's hospital course and progress with therapy.) Recommended Transportation Method: To be Determined PPE worn by staff: gloves;mask - procedural AM-PAC Basic mobility score for this patient is Mobility Raw Score:: 8 SUBJECTIVE: I want water. Patient's Goal for the Day: Work with PT. Pain Assessment: Pain Location #1 Pain Scale/Observation: Numeric (0-10) Pain Rating Score #1: 9 (RN aware) Pain Location : Back Pain Orientation: Mid;Lower OBJECTIVE: Cognition: Orientation Level: Oriented to Person;Oriented to Place;Disoriented to Situation;Disoriented to Time Cognition: Follows one step commands;Attention/concentration-decreased;Processing-delayed;Judgement- decreased;Safety awareness-decreased Level of Consciousness-Adult: Drowsy Participation: Compliant Precautions: Fall Bed Mobility: Rolling: Total Assistance Supine to Sit: Maximum Assistance;X 2 Sit to Supine: Maximum Assistance;X 2 Transfers: Sit to Stand: Activity Does Not Occur;Declined (d/t fatigue and back discomfort) Stand to Sit: Activity Does Not Occur Mobility: Distance Ambulated (ft): 0 FEET Ambulation: Level of Assistance: Activity Does Not Occur Weight Bearing Status-LLE: Weight Bearing as Tolerated Weight Bearing Status-RLE: Weight Bearing as Tolerated Weight Bearing Status-LUE: Weight Bearing as Tolerated Weight Bearing Status-RUE: Weight Bearing as Tolerated Balance: Sitting - Static: Fair +;Good - Sitting - Dynamic: Fair Activity Tolerance: Activity Tolerance: Requires rest breaks;Requires seated rest breaks Vital signs: 10/19/23 1106 10/19/23 1107 Activity Tolerance Activity Tolerance Requires rest breaks -- SpO2 97 % -- Pulse 103 -- BP 146/77 (supine before activity) 150/73 (Supine after activity) MAP 98 92 Oxygen Therapy O2 L/M 1 -- $ O2 DEVICE Nasal Cannula $ -- Exercise: Sitting LAQ x 5 reps ASSESSMENT: Pt supine in bed on entry in agreement to work with PT. Pt is A&OX2 with reports ofback discomfort. RN aware. Pt is able to initiate bed mobility transfer by moving LE towards EOB followed by need for MaxA x2 to achieve sitting EOB. Noted improvements in pt's seated balance on thisdate with pt able to hold self at midline for brief periods with SBA. Pt does intermittently demonstrate posterior trunk lean with Deanne provided to correct. Pt works on self-care tasks with OT. Pt tolerates about 5 minutes in total sitting EOB. Pt with reports of fatigue and continued back discomfort with need to return to supine, despite encouragement for continued participation. Assisted pt back to supine with HOB elevated. All pt needs met prior to leaving, bed alarm activated, and RN informed. Call light and phone in reach with bed alarm activated. All lines, monitors, IV's, equipment in place and intact pre and post visit. Pt educated in PT plan of care, fall precautions, and benefits of OOB activity. RNFrandy, notified of patient's performance/location end of session. No, Manager Banking, present to assist throughout the session. Please refer to the Filed Flowsheet for further details. Refer to Plan of Care for PT goals. If this is the last Physical Therapy visit, this note serves as the discharge summary. X [phone] * Aneta Cmapbell, DO - 10/19/2023 11:34 AM CDT Infectious Diseases Progress Note José Miguel Keys 10/13/2023 Hospital Day 7 Subjective More alert Afebrile, WBC up slightly Abx Ceftriaxone 10/12- Clindamycin 10/11-10/17 Vanc 10/11-10/13 Flagyl 10/11-10/12 Cefepime 10/11 Exam BP 150/80 (BP Location: Left arm, Patient Position: Lying) Pulse 96 Temp 98.2 ??F (36.8 ??C) (Axillary) Resp 18 Ht 1.803 m (5' 10.98 ) Wt 111.1 kg (245 lb) SpO2 98% BMI 34.19 kg/m?? General: NAD Neuro: alert, responds appropriately Lungs: non-labored on NC, diminished at bases CV: normal rate, regular Abd: soft, no guarding, bowel sounds active Ext: Left thigh area of redness less induration, redness has extended beyond initial marking from admit, more proximal and anterior but less swelling to the thigh and it is less intense color. Redness to left lower leg fading R IJ CVC 10/10-10/13 Data Recent Labs Component Name 10/19/23 0336 10/17/23 0358 10/16/23 0355 WBC 18.0* 16.7* 18.7* HGB 12.3* 11.7* 11.7* HCT 38.8 38.0* 36.9* PLTCOUNT 164 133* 128* Recent Labs Component Name 10/19/23 0336 10/18/2345 10/17/231938 SODIUM 156* 153* 149* POTASSIUM 3.3* 3.7 3.9 CHLORIDE 120* 113* 111* CO2 27 28 31* BUN 63* 81* 86* CREATININE 1.83* 2.34* 2.43* GLUCOSE 120* 152* 106* CALCIUM 9.3 9.5 9.5 Recent Labs Component Name 10/19/23 0336 10/18/23 0745 10/17/23193810/17/23142010/17/23335 ALBUMIN 2.5* 2.5* 2.6* - 2.5* ALKPHOS 80 81 - - 73 ALT 38 45 - - 53 AST 31 32 - - 57* TBIL 0.8 1.1 - - 0.5 TPROT 6.8 6.8 - - 7.1 - = values in this interval not displayed. Microbiology Blood culture 10/10 Dandre Group G Strep (R clinda) 10/11 negative Radiology 10/10 CXR: Mild interstitial edema vs senescent change 10/10 Venous Doppler LLE: No DVT 10/10 CTA Chest: Distended gallbladder, cholelithiasis. No PE 10/10 CT A/P wo: stone in gallbladder neck. L1-2 fusion. Mild peripancreatic inflammatory changes 10/11 CT LLE wo: There is a moderate cellulitis in the skin and subcutaneous soft tissues along the medial aspect of the left thigh. No gas is seen in the soft tissues. No drainable abscess collection is seen. No evidence for inflammatory change in the fascial planes of the left thigh. 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 10/15 CT C/A/P wo: Moderate bilateral loculated pleural effusions. Slightly nodular [...] blood products given an adjacent soft tissue contusioninjury in the left lateral soft tissues and a mildly displaced left posterior 11th rib fracture. Nofree air identified. Subtle hazy stranding in the upper abdominal mesentery which could reflect posttraumatic changes/mesenteric injury or mesenteritis. This is in proximity of the pancreas however is felt less likely reflect pancreatitis. Recommend correlation with patient history and lipase. Diffuse bladder wall thickening which could be seen in the setting of cystitis. Recommend correlation with urinalysis. MEDICATIONS FOR CURRENT ENCOUNTER: SCHEDULED MEDICATIONS: albuterol-ipratropium (Duo-Neb) nebulizer solution 3 mL, Inhalation, q6h apixaban (Eliquis) tablet 5 mg, Enteral Tube, BID aspirin chew tablet 81 mg, Enteral Tube, QDAY cefTRIAXone (Rocephin) 2,000 mg in 0.9% NaCl IV 50 mL IVPB, Intravenous, q24h docusate sodium (Colace) capsule 100 mg, Oral, BID insulin aspart (NovoLOG) pen 0-12 Units, Subcutaneous, 4X/day - AC & HS lactulose (Chronulac) solution 20 g, Oral, 4X/day metoprolol tartrate IR (Lopressor) tablet 25 mg, Enteral Tube, BID pantoprazole EC (Protonix) tablet 40 mg, Oral, QDAY rifAXIMin (Xifaxan) tablet 550 mg, Enteral Tube, BID venlafaxine XR 24hr (Effexor XR) capsule 37.5 mg, Oral, QDAY WITH BREAKFAST [COMPLETED] clindamycin (Cleocin) 900 mg in 50 mL D5W IVPB, Intravenous, q8h CONTINUOUS MEDICATIONS: 0.9% NaCl flush bag, Intravenous, CONTINUOUS PRN dextrose 5 % infusion, Intravenous, Continuous PRN MEDICATIONS: Or Or 0.9% NaCl flush bag, Intravenous, CONTINUOUS PRN acetaminophen (Tylenol) tablet 1,000 mg, Enteral Tube, q6h PRN bisacodyl (Dulcolax) suppository 10 mg, Rectal, QDAY PRN dextrose 10 % IV bolus, Intravenous, PRN dextrose 10 % IV bolus, Intravenous, PRN glucagon (Glucagen) injection 1 mg, Subcutaneous, PRN glucose (Diabetic Use) oral gel, Oral, PRN ondansetron (Zofran) injection 4 mg, Intravenous, q4h PRN senna (Senokot) tablet 8.6 mg, Oral, BID PRN Assessment --Group G strep septicemia with septic shock, concern for left thigh nec fasc or cellulitis with myositis and Streptococcal toxic shock syndrome CK and CRP not majorly elevated, CK seems to have peaked Weaned off pressors IVIG 10/11-10/12 CT WITHOUT contrast without evidence for gas 10/11 and 10/14. Surgery evaluated and both times recommended no surgery CT C/A/P non-specific peripancreatic finding was also reported on outside initial CT and his lipasewas normal on admit. Liver enzymes not consistent with a hepatobiliary process. Pleural effusion likely from volume state I do not think there is an additional process for how sick he is. I think this was streptococcal toxic shock from left leg in a cirrhosis patient that developed RADHA. His leg does not currently look great but in several ways it looks better than the first 3 days of admission. He is going to have a very slow recovery. CRP about 60% better over the one week since admission. 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 Level of Care (SNF/Medicaid NH/Rehab/Usp Care/LTACH): snf requested should pt be unable to rtn hme once stable for discharge. This worker spke with pts. spouse Trinity Keys @ [phone], last week,,and below [facility]/ [facility]/ [facility] per spouse requestedif new snf needed @ time of discharge. Fac has an [employer] contract.Fac willing to review for possible admit. Ss updated fac pt is not yet stable for discharge currently remains in the ICU. MD's following for medical stability. Ss will continue to send updates for fac review. Rtn call rcd from Moni with [facility]/ [facility] admissions, ss explained pt is NOT yet ready for discharge updates will be sent daily and when closer to discharge will then need final answer.Fac asked to please continue to follow for possible admit and they plan to follow. Assist appreciated. Additional info to follow/ updates will be sent daily.- updates sent again today 10/16 Referrals initiated: Continued Care and Services - Admitted Since 10/12/2023 Destination Service Provider Request Status Selected Services Address Phone Fax Patient Preferred [facility] Pending - Request Sent N/A [address] [id number] -- If Medicare-3 day qualifying stay verified: pt has [employer] and will need an Auth to transfer to any snf. [facility] cm to obtain snf Auth if to snf once fac with approval with an available bed. See cm note for all Auth updates if pt to snf @ time of discharge. monitoring facility responses Comments/changes:if to snf nrsg to please send fac orders,chart and discharge summary. Name: CHRIS Garcia Phone: [phone] * Geraldine Gonzalez, OT - 10/19/2023 11:27 AM CDT Occupational Therapy Treatment Summary Chart reviewed for history of presenting illness, diagnosis and medical history Nursing consented for OT. Discharge Recommendation: Discharge OT Discharge Recommendations: Other: (TBD pending hospital course and progression in therapy. Anticipate patient will require skilled therapy prior to return home) Recommended Transportation Method: To be Determined AM-PAC Basic mobility score for this patient is Daily Activity Raw Score:: 6 PPE worn by staff: gloves;mask - procedural Explained purpose of OT and patient consented to participate in therapy. Precautions: Falls / Safety/ 3L NC/ Cognition SUBJECTIVE: Subjective: My back hurts Psychosocial: Patient Behaviors: Calm;Cooperative Pt's goal for therapy: agreeable to OT OBJECTIVE: Pain Assessment: Pain Location #1 Pain Scale/Observation: Numeric (0-10) Pain Rating Score #1: 9 Pain Location : Back Pain Orientation: Mid Cognition: Orientation Level: Oriented to Person Level of Consciousness-Adult: Drowsy Cognition: Follows one step commands;Follows Commands-inconsistent;Processing-delayed;Judgement-decreased;Safety awareness-decreased;Attention/concentration-decreased Functional Mobility: Bed Mobility: Rolling: Total Assistance Supine to Sit: Maximum Assistance;X 2 Sit to Supine: Maximum Assistance;X 2 Transfers: Sit to Stand: Activity Does Not Occur Stand to Sit: Activity Does Not Occur Balance: Poor+ sitting balance at EOB Basic ADL's: (Through clinical assessment, observation and professional judgement) Feeding: (NPO) Oral Facial Hygiene: Total Assistance Bathing: Total Assistance Upper Body Dressing: Total Assistance Lower Body Dressing: Total Assistance Toileting: Total Assistance Activity Tolerance/Vital Signs: 10/19/23 1106 10/19/23 1107 Activity Tolerance Activity Tolerance Requires rest breaks -- SpO2 97 % -- Pulse 103 -- BP 146/77 (supine before activity) 150/73 (after activity) MAP 98 92 ASSESSMENT: Pt found supine in bed. He is agreeable to participate. He reports his back hurts. He performs supine to sit with max A of 2 and tolerates sitting EOB for 5 minutes. He demonstrates improved balance this date from yesterday and is more alert. He keeps asking for water, despite education on restrictions at this time. He is able to complete LE ROM exercises for knee extension and works on bring moistened swab to mouth to relieve dry mouth. He demonstrates significant weakness in his Ues with thistask, requiring hand over hand and support at elbow. He requires max A of 2 to return to supine at the end of the session. At the end of the session, the patient was made comfortable and left with all needs in reach. Overall, the patient's ability to participate in self-care tasks and functional mobility at baseline level of function is decreased. All questions and concerns addressed prior to OT departure. All lines, monitors, IV's, equipment in place and intact pre and post visit. RN notified of patient's performance/location end of session. Educated patient with benefits of additional OT services following DC from acute care. RECOMMENDATIONS/PLAN: Continue per OT POC. Progress patient's functional activity tolerance & participation for self-care tasks to increase safety and independence with ADL and IADLS upon discharge. Discharge Recommendation: Discharge OT Discharge Recommendations: Other: (TBD pending hospital course and progression in therapy. Anticipate patient will require skilled therapy prior to return home) Recommended Transportation Method: To be Determined If this is the last Occupational Therapy visit, this serves as the discharge summary. OT x [phone] * Beata Encarnacion - 10/19/2023 9:59 AM CDT CLINICAL SWALLOW EVALUATION Speech Pathology: Order received and chart reviewed. Clinical Dysphagia Evaluation completed. Please refer to Clinical Swallow Study doc flowsheet for full results. José Miguel Keys is a 72 year old male, admitted to facility 07/08 to sepsis of unknown origin. SOB with an increased cough and sputum production, left leg pain and rash. Pt intubated on 10/11 and extubated same day. Past medical history includes: Past Medical History: Diagnosis Date Actinic keratosis Arthritis Asthma (HCC) Atrial fibrillation, chronic (HCC) Basal cell carcinoma CAD (coronary artery disease) Clotting disorder (HCC) Colitis COPD (chronic obstructive pulmonary disease) (HCC) Diabetes (HCC) DVT (deep venous thrombosis) (HCC) Dyslipidemia Eczema GERD (gastroesophageal reflux disease) Heart attack (HCC) High blood pressure Hx of blood clots Keloid Kidney disease Lentigo maligna melanoma (HCC) MRSA (methicillin resistant staph aureus) culture positive 07/29/2017; 02/04/19; 04/29/2019 07/29/17-Disc- tissue culture MRSA; R hip; nasal swab+ Obstructive sleep apnea VALENTINA (obstructive sleep apnea) Other cirrhosis of liver (HCC) Peripheral neuropathy Psoriasis S/P PICC central line placement 02/13/2019 [facility] VAT R basilic Seizures (HCC) Squamous cell carcinoma VRE (vancomycin resistant enterococcus) culture positive 04/29/2019 rectal swab+ Pertinent History: No ST services provided via [facility] or Care Everywhere. This Date: Vitals: Date: 10/19/2023 WBC: 18 Temp: Temp: 98.2 ??F (36.8 ??C) O2: O2 L/M: 1 $ O2 DEVICE: Nasal Cannula $ Lung Sounds: General Anterior Breath Sounds: DiminishedRespiratory (WDL): Exceptions to WDL Imaging: CXR: 10/16: Near complete clearing of the left mid to lower lung field infiltrates still with some residual pleural and parenchymal change left base CT: 10/16: No acute intracranial abnormality. Chronic changes as noted above. S: Pt reclined in bed requesting water. A&Ox2. Pt adjusted upright in bed. Oral hygiene given w/ suction. Pt unable to sustain alertness for more than 2-3 seconds. O: Oral mechanism exam completed. Pt presented w/ poor/missing dentition, impaired vocal quality, and impaired oral motor coordination. Oral hygiene given to pt due to thick secretions and xerostomia. Adequate labial/facial symmetry, adequate lingual ROM, and adequate velar elevation. Pt given trials of ice chips, thin liquid via spoon and straw and puree via spoon fed. Pt drowsy throughout visitand falling asleep at times with ice and puree in oral cavity. Pt required verbal cueing to continue oral manipulation. Oral phase revealed diminished bolus manipulation and control possibly 2/2 to decreased alertness. Pharyngeal phase initiation delayed 1-2 seconds when given ice chips and thin liquid via spoon. Observed cough x1 with thin liquids. No overt clinical signs of aspiration were observed with ice chips or puree. Pt presents with moderate oral dysphagia and suspected pharyngeal dysphagia. Pt is at increased risk for aspiration 2/2 to altered mentation, decreased level of alertness, and dysphagia. Recommend NPO with 2-3 ice chips every hours. Recommend medicine intake crushed with puree. Patient/Caregiver goals: None stated. Assessment: Primary Diagnostic Impression - Oral: Dysphagia;Moderate Primary Diagnostic Impression - Pharyngeal: Dysphagia (suspected) Risk For Aspiration: Moderate AMBRIZ Assessment: MASA Score: 146 Dysphagia Severity Level: Moderate (139 - 167) Risk for Aspiration: Moderate (148 - 141) Risk of aspiration is reduced with the use of diet modification/compensatory strategies. Recommend: Diet Solids Recommendation: NPO Diet Liquids Recommendation: NPO Recommended Form of Meds: Crushed;With puree Risk For Aspiration: Moderate Ice chip protocol: 2-3 ice chips per hour w/ supervision Oral care q2-3 Aspiration precautions No ice left w/ pt Strategies Include: Compensatory Swallowing Strategies: 90 Degrees elevation for all oral intake Results discussed with: Results discussed with:: Nursing Comments: Comments: NPO; with 2-3 ice chips every hour Follow Up: Recommendations: NPO;With Ice Chips PRN Follow Up: Speech therapy to follow. Please refer to Care Plan. PPE: PPE worn by staff: gloves If this is the last Speech Therapy visit, this serves as the discharge summary. Thank you for this referral. Corinna Cota LOCKER ATTENDANT student 10/19/2023 11:24 AM Associated attestation - Enid Kearns SLP - 10/19/2023 11:27 AM CDT Direct supervision provided. I have read and agree with this documentation. Enid Wynne MA, CCC-LOCKER ATTENDANT 10/19/23 * Cathy Carlton RCP - 10/19/2023 8:30 AM CDT Problem: Impaired Gas Exchange Goal: Resp rate/effort will be within specified limits Description: To maintain oxygen within normal parameters. RT to monitor. Flowsheets (Taken 10/19/2023399 by Annie Winslow RN) Resp: 14 SpO2: 98 % Note: I will continue to monitor José Miguel's oxygenation within normal parameters. * Tiffany Fortune MD - 10/19/2023 8:27 AM CDT Admit Date: 10/12/2023 4:19 AM Hospital Day: 7 Follow Up Acute respiratory failure, AMS New Symptoms Patient still lethargic but follows commands . Needs stimulation to awaken, confused, and disoriented to place and time Data Vitals: 10/18/23199910/18/23 2105 10/19/23 0000 10/19/23 0400 BP: 134/99 147/90 125/85 Pulse: 93 91 91 86 Resp: Temp: 98.2 ??F (36.8 ??C) 98.5 ??F (36.9 ??C) 98.2 ??F (36.8 ??C) SpO2: 98% 96% 98% Weight: Height: Temp (30hrs) Max:98.5 ??F (36.9 ??C) Intake/Output Summary (Last 24 hours) at 10/19/2023 0827 Last data filed at 10/19/2023 0646 Gross per 24 hour Intake 1059.52 ml Output 2950 ml Net -1890.48 ml Medications have been reviewed Exam General appearance: a no distress HEENT: Grossly unremarkable Heart: regular rhythm, normal S1 and S2, Lungs: breath sounds clear Abdomen: soft Extremities: + edema Neuro: No focal deficits. Recent Labs Component Name 10/19/23 0336 10/17/23 0358 10/16/23 0355 WBC 18.0* 16.7* 18.7* HGB 12.3* 11.7* 11.7* HCT 38.8 38.0* 36.9* PLTCOUNT 164 133* 128* Recent Labs Component Name 10/19/23 0336 10/18/23 0745 10/17/23 1939 03/08/23 1347 08/23/224 02/09/22 0921 08/03/21 1025 01/09/21 1055 09/05/20 1325 02/03/19 0106 09/19/17 0243 09/18/17 0003 SODIUM 156* 153* 149* - - - 139 137 140 - - - NA - - - - 141 - - - - - 138 140 POTASSIUM 3.3* 3.7 3.9 - 4.6* - 4.7 4.4 4.2 - 4.9* 3.4* CHLORIDE 120* 113* 111* - - - 102 102 103 - - - CO2 27 28 31* - 26 - 27 26 28 - 34* 35* BUN 63* 81* 86* - 26 - 41* 50* 27* - 26 25 CREATININE 1.83* 2.34* 2.43* - 1.60* - 1.89* 2.07* 1.46* - 0.6 0.6 GLUCOSE 120* 152* 106* - 113 - 124* 144* 109* - 153* 135* CALCIUM 9.3 9.5 9.5 - 10.3* - 9.6 9.7 9.9 - 9.1 9.0 EGFR 38* 28* 27* - 45* - 35* 31* 48* - >60 >60 EGFRAFR - - - - - - 40* 36* 55* - - - - = values in this interval not displayed. @ Recent Labs Component Name 10/17/23 2117 10/17/23 1434 10/17/23 0811 10/17/23 0420 10/12/23 0508 09/10/17 0557 09/09/17 0841 09/09/17 0422 FIO2 - 30.0 40.0 40.0 - 40.0 100.0 100.0 PH 7.39 7.45 7.32* 7.32* - 7.45 7.51* 7.41 PCO2 57* 48* 61* 61* - 44 38 45 BE 7.8* 8.2* 3.8* 3.9* - 5.4* 5.7* 2.4* HCO3 - - - - - 30.0* 29.2* 27.4* PO2 135* 86 146* 110* - 80 274* 65* O2SAT 100 99 99 99 - - - - GXG4ALM 34.5* 33.4* 31.4* 31.4* - - - - - = values in this interval not displayed. Assessment/Plan: Acute hypercapnic respiratory failure: Patient is currently on BiPAP with an IPAP of 30 and EPAP of14 with 40 percent oxygen bled in. Significant improvement with resolution of respiratory acidosis but has chronic hypercapnia. Continue BIPAP at HS for now and place on NC during the day as tolerated Altered mental status: Much more awake and follows commands. However, still requires stimulation toawaken. Presumed to be secondary to hypercapnic respiratory failure. CT Head without acute pathology Bilateral pleural effusion with attendant atelectasis: CXR 10/17/2023 shows significant improvement with small let pleural effusion. Repeat CXR in am Hypernatremia presumably secondary to diuresis. Patient on D5W at 75cc/hour. Group G Streptococcus bacteremia per blood cultures at outside facility: Patient is currently on ceftriaxone and clindamycin. Id is following patient Excessive narcotic use during this hospitalization: Patient is now off Narcan drip Anasarca: Echocardiogram showed EF of 45 percent, BNP remains elevated but patient is clinically less fluid overloaded. History of atrial fibrillation: Patient has been on beta-fe and Eliquis Code status: Full * Annie Winslow RN - 10/19/2023 7:02 AM CDT Problem: Oral Intake: Inadequate oral intake Goal: Total intake will meet estimated nutrient needs Outcome: Not Progressing Problem: Sleep deprivation related to sleep apnea. Goal: Achieves restful, refreshing sleep pattern. Outcome: Not Progressing Problem: Impaired Gas Exchange Goal: Resp rate/effort will be within specified limits Description: To maintain oxygen within normal parameters. RT to monitor. Outcome: Progressing Problem: Fall Risk Goal: Fall risk and fall related injury risk are minimized (interventions related to the fall risk can be found in the flowsheet documentation) Outcome: Progressing Problem: Ineffective breathing pattern related to obstructive sleep apnea Goal: Maintains optimal sleep pattern, as evidenced by relaxed breathing at normal rate and depth. Outcome: Progressing Goal: Adheres to CPAP (Continuous Positive Airway Pressure) device regimen as prescribed. Outcome: Progressing * Jayme Rodriguez MD - 10/18/2023 9:32 PM CDT Internal Medicine Progress Note -Hospitalist Admit Date: 10/12/2023 4:19 AM Hospital Day: 6 Clinical Course: New Symptoms: Awake but lethargic, can greet back. Objective: Vitals: 10/18/23 0946 10/18/23 1002 10/18/23 1600 10/18/23 2105 BP: 137/86 Pulse: 91 91 Resp: 18 17 23 Temp: SpO2: 98% 99% Weight: Height: General appearance: lethargic but woke up and replied Left pupil is bigger than right Heart: normal rate Lungs: breath sounds normal and symmetric; no rales or wheezes Abdomen: soft without mass, non-tender, with normal bowel sounds Extremities: no clubbing, cyanosis or edema, chronic venous insufficiency changes on bilateral calves. Left thigh is red and tender. Intake/Output Summary (Last 24 hours) at 10/18/2023 2132 Last data filed at 10/18/2023 1808 Gross per 24 hour Intake 1029.52 ml Output 1900 ml Net -870.48 ml Current Medications: MEDICATIONS FOR CURRENT ENCOUNTER: SCHEDULED MEDICATIONS: albuterol-ipratropium (Duo-Neb) nebulizer solution 3 mL, Inhalation, q6h apixaban (Eliquis) tablet 5 mg, Enteral Tube, BID aspirin chew tablet 81 mg, Enteral Tube, QDAY cefTRIAXone (Rocephin) 2,000 mg in 0.9% NaCl IV 50 mL IVPB, Intravenous, q24h clindamycin (Cleocin) 900 mg in 50 mL D5W IVPB, Intravenous, q8h docusate sodium (Colace) capsule 100 mg, Oral, BID insulin aspart (NovoLOG) pen 0-12 Units, Subcutaneous, 4X/day - AC & HS lactulose (Chronulac) solution 20 g, Oral, 4X/day metoprolol tartrate IR (Lopressor) tablet 25 mg, Enteral Tube, BID pantoprazole EC (Protonix) tablet 40 mg, Oral, QDAY rifAXIMin (Xifaxan) tablet 550 mg, Enteral Tube, BID venlafaxine XR 24hr (Effexor XR) capsule 37.5 mg, Oral, QDAY WITH BREAKFAST CONTINUOUS MEDICATIONS: 0.9% NaCl flush bag, Intravenous, CONTINUOUS PRN dextrose 5 % infusion, Intravenous, Continuous PRN MEDICATIONS: Or Or 0.9% NaCl flush bag, Intravenous, CONTINUOUS PRN acetaminophen (Tylenol) tablet 1,000 mg, Enteral Tube, q6h PRN bisacodyl (Dulcolax) suppository 10 mg, Rectal, QDAY PRN dextrose 10 % IV bolus, Intravenous, PRN dextrose 10 % IV bolus, Intravenous, PRN glucagon (Glucagen) injection 1 mg, Subcutaneous, PRN glucose (Diabetic Use) oral gel, Oral, PRN ondansetron (Zofran) injection 4 mg, Intravenous, q4h PRN senna (Senokot) tablet 8.6 mg, Oral, BID PRN Data: Recent Labs Component Name 10/18/23 0745 10/17/23 1939 10/17/23 1421 SODIUM 153* 149* 154* POTASSIUM 3.7 3.9 4.5 BUN 81* 86* 92* CREATININE 2.34* 2.43* 2.34* GLUCOSE 152* 106* 91 Recent Labs Component Name 10/17/23 0358 10/16/23 0355 10/15/23 0444 WBC 16.7* 18.7* 25.4* HGB 11.7* 11.7* 12.1* HCT 38.0* 36.9* 39.1 PLTCOUNT 133* 128* 113* CT FEMUR LEFT WO CONTRAST Result Date: 10/12/2023 PROCEDURE: CT FEMUR LEFT WO CONTRAST DATE/TIME OF EXAM: 10/12/2023 10:00 AM CLINICAL INFORMATION: None relevant/not provided if blank. Indication: A41.89: Other specified sepsis (HCC) Additional History: Pain and swelling in left thigh COMPARISON: None. TECHNIQUE: CT of the left femur was performed utilizing standard protocol. CT dose reduction technique was used, including Automated Exposure Control. FINDINGS: There is a small left knee joint effusion. Severe degenerative change is seen in all 3compartments of the left knee. There is moderate edema in the skin and subcutaneous soft tissues along the medial aspect of the left thigh consistent with a moderate cellulitis. No gas is seen in the soft tissues. No inflammatory change is seen in the fascial planes between the muscles of the left thigh. There is no evidence for a drainable abscess. No swelling of the muscles in the left thigh isseen. There is a left total hip arthroplasty. No evidence for a hardware complication. IMPRESSION: There is a moderate cellulitis in the skin and subcutaneous soft tissues along the medial aspect of the left thigh. No gas is seen in the soft tissues. No drainable abscess collection is seen. No evidence for inflammatory change in the fascial planes of the left thigh. 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 > Interpreting Provider: Jose Alberto Kemp MD on 10/12/2023 11:59 AM XR CHEST 1VW PORTABLE Result Date: 10/12/2023 PROCEDURE: XR CHEST 1VW PORTABLE DATE/TIME OF EXAM: 10/12/2023 5:55 AM INDICATION: J96.00: Acute respiratory failure, unspecified whether with hypoxia or hypercapnia (HCC) COMPARISON: May 01, 2019ADDITIONAL CLINICAL INFORMATION (if provided): Ordering Provider Reason For Exam: Findings: There is an ET tube in the distal trachea less than 3 cm from the mattie. There is a right internal jugularcatheter projecting over the superior vena cava and a nasogastric tube is seen entering the upper abdomen The heart is borderline enlarged. The aorta is normal in caliber. The patient is severely rotated to the left limiting detail. There is some mild pleural and parenchymal change left base and blunting of the left costophrenic sulcus There is no confluent infiltrate .. There is no pneumothorax. There is no mass or adenopathy.. IMPRESSION: Tubes and lines in adequate position without a pneumothorax Oral and parenchymal changeat the left base slightly progressive in the interval > Interpreting Provider: Viola Parks 10/12/2023 8:23 AM Assessment and Plan Continue current treatment W/U for AMS is ongoing Altered mental status Patient had a rapid yesterday for altered mental status. It was thought to be due to hypercapnia and opioids. He was started on Narcan drip and placed on BiPAP. He is still very lethargic. Differential for altered mental status is very broad. Possible hypercapnia versus opioid overdose versus hepatic encephalopathy versus encephalitis versus seizure versus metabolic encephalopathy Repeat ABG shows compensated respiratory acidosis. Monitor on BiPAP. Repeat ABG in the afternoon. Pulmonology on board. CT head without any acute abnormalities. He does have cirrhosis. Started on Xifaxan and lactulose. Ammonia pending. Neurology consulted. Appreciate recommendations. Septic shock POA Left thigh cellulitis Group G Strep bacteremia Leukocytosis secondary to above Lactic acidosis secondary to above Patient transferred from outside facility in septic shock. 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 Labs significant for leukocytosis and lactic acidosis. Blood cultures at outside facility reported as GPC. Speciation pending 10/11: CT scan of the thigh shows: Moderate cellulitis in the skin and subcutaneous soft tissues along the medial aspect of the left thigh. No gas. No drainable abscess. No evidence of inflammatory change in the facial planes. 10/14: I called the surgery team for repeat evaluation. They suggested to get repeat CT. It shows progressive diffuse subcutaneous edema of the left thigh but no organized fluid collection, no soft tissue gas collection. Continue with IV ceftriaxone and clindamycin Surgery and Infectious Disease on board. Acute on chronic hypoxemic respiratory failure HFpEF COPD Patient has a history of CHF and COPD. Initially intubated for worsening respiratory status. Extubated on 10/11. Continue with breathing treatment Goal-directed medical therapy held Atrial fibrillation Restarted on beta-fe and Eliquis RADHA with CKD Likely a combination of ATN in the setting of shock and contrast induced nephropathy Monitor BMP Nephrology on board History of cirrhosis secondary to MICHAUD. Monitor LFTs Patient's Functional Baseline prior to admit: independent Discharge Planning to Next Site of Care: Other: tbd Anticipated discharge date: tbd READMISSION RISK SCORE is 16 at 9:32 PM 10/18/2023. DVT prophylaxis: heparin Full Code Jayme Rodriguez MD 10/18/2023 9:32 PM Portions of this note may be dictated using voice recognition software. Variances in spelling and vocabulary are possible and unintentional. Not all errors are caught/corrected. Please notify the author if any discrepancies are noted or if the meaning of any statement is not clear. These grammatical oversights have no impact on the medical care provided to the patient. Time in which this note is created does not match the time of rounding/clinical exam. * Silas Newman RN - 10/18/2023 8:40 PM CDT SITUATIONAL AWARENESS NOTE PATIENT'S NAME: José Miguel Keys BIRTHDATE: 1950 CODE STATUS: Full Code PRIMARY CONCERN FOR SITUATIONAL AWARENESS: Rapid Response within the past 48 hours OBSERVATIONS: Pt laying in bed with eyes open and family at bedside. Pt now able to track with eyes. Pt still not verbalizing much but is following commands and was able to say ok. Pt doing much morepurposeful movements. Family states he has been more awake and alert and looks more comfortable today. Pt was able to have a large bowel movement this morning after no bm's for several days. VS BP 137/86, temp 97.9, HR 91 bpm afib, 23 RR, 99% on 1L NC with diminished lung sounds. 0520: Pt sleeping. Primary RN at bedside administering meds. Primary RN reports no new issues during the shift. Will continue to monitor. PLAN: Continue current plan as detailed in daily progress note. Continue Critical Response Nurse rounding OUTCOME: Remains in current room ESCALATION PLAN: If patient begins to clinically deteriorate or there are any significant changes please call a rapid response. Plan discussed with - nursing, hospitalist, and patient. Everyone is in agreement with the plan. 40 minutes spent on patient assessment, review of relevant data, and documentation. * Tamara Bauman MD - 10/18/2023 1:46 PM CDT Images from the original note were not included. Nephrology Progress Note Admit Date: 10/12/2023 4:19 AM Hospital Day: 6 Assessment: Acute kidney injury-ATN secondary shock status and hypotension + ELLIOTT -creatinine 2.94 on 10/12 -creatinine 1.8 08/2022 -creatinine baseline 1.5 since 2019 Hyperkalemia Metabolic acidosis Sepsis Possible lower extremity cellulitis Shock status-possibly sepsis Acute hypoxic respiratory failure History of COPD History of AFib History of CHF History of cirrhosis secondary to MICHAUD Full Code *PCP is Provider Unknown* Recommendations: SCr slightly better today Na elavted Continue d5w for now Would hold further lasix for today Robust UOP yesterday Maintain Cabral catheter Checked urine lytes Antibiotics per ID Gabapentin held Steroids taper per primary team Surgical team following Avoid hypotension Avoid further IV contrast and NSAIDs No acute indications for dialysis Reason for Consult Acute kidney injury Clinical Course 10/12/2023: Admitted 10/12: Renal consult 10/13: Urine output 760 cc in last 24 hours. Off pressors. On low-rate LR 10/14: Somnolent. Cabral removed early this morning. 10/15: Cabral replaced due to continued urinary retention. 10/16: TONG[employer]ITCHER called overnight due to AMS. Given narcan, placed on BiPAP, transferred to step down for closer monitoring. Remains on narcan drip this morning. 10/17: remains lethargic. New Symptoms Somnolent. General: somnolent Heart: regular rhythm, S1S2, without rub Lungs: breath sounds diminished; no wheezes or crackles; no distress at rest on O2 via NC Abdomen: soft without mass, non-tender, with bowel sounds Extremities: no clubbing or cyanosis, no edema. Redness bilateral lower extremity-more indurated redness on the left upper thigh Circulation: no central access Genitalia: Cabral present Data Vitals: 10/18/23 0900 10/18/23 0938 10/18/23 0946 10/18/23 1002 BP: 133/81 Pulse: 88 Resp: 17 18 17 Temp: SpO2: 98% 98% Weight: Height: Supplemental Oxygen (last filed value): O2 L/M: 1 (10/18/23 1002) Temp (30hrs) Max:98.4 ??F (36.9 ??C) Intake/Output Summary (Last 24 hours) at 10/18/2023 1346 Last data filed at 10/18/2023 1237 Gross per 24 hour Intake 1229.48 ml Output 1925 ml Net -695.52 ml Admission weight: Weight: 111.1 kg (244 lb 14.9 oz) (10/12/23 0507) Most recent weight: Weight: 111.1 kg (245 lb) (10/14/23 0643) Recent Labs Component Name 10/18/23 0745 10/17/23193810/17/23 1421 10/16/23 0355 10/15/23 0444 SODIUM 153* 149* 154* - 141 POTASSIUM 3.7 3.9 4.5 - 5.2* CHLORIDE 113* 111* 111* - 108* CO2 28 31* 31* - 24 BUN 81* 86* 92* - 81* CREATININE 2.34* 2.43* 2.34* - 2.95* GLUCOSE 152* 106* 91 - 115* CALCIUM 9.5 9.5 9.3 - 9.0 ALBUMIN 2.5* 2.6* 2.6* - 2.5* PHOS - 2.8 3.4 - 5.3* - = values in this interval not displayed. Recent Labs Component Name 10/18/23 0745 10/17/23193810/17/23 142 EGFR 28* 27* 28* Recent Labs Component Name 10/18/23 0745 10/17/23 0336 10/16/23 0355 MAGNESIUM 2.6 2.7* 2.6 Recent Labs Component Name 10/17/23 0358 10/16/23 0355 10/15/23 0444 WBC 16.7* 18.7* 25.4* HGB 11.7* 11.7* 12.1* HCT 38.0* 36.9* 39.1 PLTCOUNT 133* 128* 113* Recent Labs Component Name 10/15/23 0444 10/14/23 0337 10/13/23 1153 CK 440* 786* 905* MEDICATIONS FOR CURRENT ENCOUNTER: SCHEDULED MEDICATIONS: acetaminophen (Tylenol) tablet 1,000 mg, Enteral Tube, q8h albuterol-ipratropium (Duo-Neb) nebulizer solution 3 mL, Inhalation, q6h apixaban (Eliquis) tablet 5 mg, Enteral Tube, BID aspirin chew tablet 81 mg, Enteral Tube, QDAY cefTRIAXone (Rocephin) 2,000 mg in 0.9% NaCl IV 50 mL IVPB, Intravenous, q24h clindamycin (Cleocin) 900 mg in 50 mL D5W IVPB, Intravenous, q8h docusate sodium (Colace) capsule 100 mg, Oral, BID insulin aspart (NovoLOG) pen 0-12 Units, Subcutaneous, 4X/day - AC & HS lactulose (Chronulac) solution 20 g, Oral, 4X/day metoprolol tartrate IR (Lopressor) tablet 25 mg, Enteral Tube, BID pantoprazole EC (Protonix) tablet 40 mg, Oral, QDAY rifAXIMin (Xifaxan) tablet 550 mg, Enteral Tube, BID venlafaxine XR 24hr (Effexor XR) capsule 37.5 mg, Oral, QDAY WITH BREAKFAST CONTINUOUS MEDICATIONS: 0.9% NaCl flush bag, Intravenous, CONTINUOUS PRN dextrose 5 % infusion, Intravenous, Continuous PRN MEDICATIONS: Or Or 0.9% NaCl flush bag, Intravenous, CONTINUOUS PRN bisacodyl (Dulcolax) suppository 10 mg, Rectal, QDAY PRN dextrose 10 % IV bolus, Intravenous, PRN dextrose 10 % IV bolus, Intravenous, PRN glucagon (Glucagen) injection 1 mg, Subcutaneous, PRN glucose (Diabetic Use) oral gel, Oral, PRN ondansetron (Zofran) injection 4 mg, Intravenous, q4h PRN senna (Senokot) tablet 8.6 mg, Oral, BID PRN * Aneta Campbell, - 10/18/2023 10:11 AM CDT Infectious Diseases Progress Note José Miguel Kramer Ludmila 10/13/2023 Hospital Day 6 Subjective Remains lethargic but off BiPAP, CO2 improved No new CBC Afebrile Abx Clindamycin 10/11- Ceftriaxone 10/12- Vanc 10/11-10/13 Flagyl 10/11-10/12 Cefepime 10/11 Exam BP 133/81 Pulse 89 Temp 98 ??F (36.7 ??C) (Oral) Resp 17 Ht 1.803 m (5' 10.98 ) Wt 111.1 kg (245 lb) SpO2 98% BMI 34.19 kg/m?? General: NAD Neuro: lethargic, withdraws legs to touch Lungs: non-labored on NC, diminished at bases CV: normal rate, regular Abd: soft, no guarding, bowel sounds hypoactive Ext: Left thigh area of redness less induration, redness has extended beyond initial marking from admit, more proximal and anterior but less swelling to the thigh. Redness with warmth to the lower left leg somewhat improved. R IJ CVC 10/10-10/13 Data Recent Labs Component Name 10/17/23 0358 10/16/23 0355 10/15/23 0444 WBC 16.7* 18.7* 25.4* HGB 11.7* 11.7* 12.1* HCT 38.0* 36.9* 39.1 PLTCOUNT 133* 128* 113* Recent Labs Component Name 10/18/23 0745 10/17/23 1939 10/17/23 1421 SODIUM 153* 149* 154* POTASSIUM 3.7 3.9 4.5 CHLORIDE 113* 111* 111* CO2 28 31* 31* BUN 81* 86* 92* CREATININE 2.34* 2.43* 2.34* GLUCOSE 152* 106* 91 CALCIUM 9.5 9.5 9.3 Recent Labs Component Name 10/18/23 0745 10/17/23 1939 10/17/23 1421 10/17/23 0336 10/16/23 0355 ALBUMIN 2.5* 2.6* 2.6* 2.5* 2.5* ALKPHOS 81 - - 73 65 ALT 45 - - 53 52 AST 32 - - 57* 58* TBIL 1.1 - - 0.5 0.5 TPROT 6.8 - - 7.1 7.1 Microbiology Blood culture 10/10 Dandre Group G Strep (R clinda) 10/11 negative Radiology 10/10 CXR: Mild interstitial edema vs senescent change 10/10 Venous Doppler LLE: No DVT 10/10 CTA Chest: Distended gallbladder, cholelithiasis. No PE 10/10 CT A/P wo: stone in gallbladder neck. L1-2 fusion. Mild peripancreatic inflammatory changes 10/11 CT LLE wo: There is a moderate cellulitis in the skin and subcutaneous soft tissues along the medial aspect of the left thigh. No gas is seen in the soft tissues. No drainable abscess collection is seen. No evidence for inflammatory change in the fascial planes of the left thigh. 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 10/15 CT C/A/P wo: Moderate bilateral loculated pleural effusions. Slightly nodular [...] blood products given an adjacent soft tissue contusioninjury in the left lateral soft tissues and a mildly displaced left posterior 11th rib fracture. Nofree air identified. Subtle hazy stranding in the upper abdominal mesentery which could reflect posttraumatic changes/mesenteric injury or mesenteritis. This is in proximity of the pancreas however is felt less likely reflect pancreatitis. Recommend correlation with patient history and lipase. Diffuse bladder wall thickening which could be seen in the setting of cystitis. Recommend correlation with urinalysis. MEDICATIONS FOR CURRENT ENCOUNTER: SCHEDULED MEDICATIONS: acetaminophen (Tylenol) tablet 1,000 mg, Enteral Tube, q8h albuterol-ipratropium (Duo-Neb) nebulizer solution 3 mL, Inhalation, q6h apixaban (Eliquis) tablet 5 mg, Enteral Tube, BID aspirin chew tablet 81 mg, Enteral Tube, QDAY cefTRIAXone (Rocephin) 2,000 mg in 0.9% NaCl IV 50 mL IVPB, Intravenous, q24h clindamycin (Cleocin) 900 mg in 50 mL D5W IVPB, Intravenous, q8h docusate sodium (Colace) capsule 100 mg, Oral, BID insulin aspart (NovoLOG) pen 0-12 Units, Subcutaneous, 4X/day - AC & HS lactulose (Chronulac) solution 20 g, Oral, 4X/day metoprolol tartrate IR (Lopressor) tablet 25 mg, Enteral Tube, BID pantoprazole EC (Protonix) tablet 40 mg, Oral, QDAY rifAXIMin (Xifaxan) tablet 550 mg, Enteral Tube, BID venlafaxine XR 24hr (Effexor XR) capsule 37.5 mg, Oral, QDAY WITH BREAKFAST CONTINUOUS MEDICATIONS: 0.9% NaCl flush bag, Intravenous, CONTINUOUS PRN dextrose 5 % infusion, Intravenous, Continuous PRN MEDICATIONS: Or Or 0.9% NaCl flush bag, Intravenous, CONTINUOUS PRN bisacodyl (Dulcolax) suppository 10 mg, Rectal, QDAY PRN dextrose 10 % IV bolus, Intravenous, PRN dextrose 10 % IV bolus, Intravenous, PRN glucagon (Glucagen) injection 1 mg, Subcutaneous, PRN glucose (Diabetic Use) oral gel, Oral, PRN ondansetron (Zofran) injection 4 mg, Intravenous, q4h PRN senna (Senokot) tablet 8.6 mg, Oral, BID PRN Assessment --Group G strep septicemia with septic shock, concern for left thigh nec fasc or cellulitis with myositis and Streptococcal toxic shock syndrome CK and CRP not majorly elevated, CK seems to have peaked Weaned off pressors IVIG 10/11-10/12 CT WITHOUT contrast without evidence for gas 10/11 and 10/14. Surgery evaluated and both times recommended no surgery CT C/A/P non-specific peripancreatic finding was also reported on outside initial CT and his lipasewas normal on admit. Liver enzymes not consistent with a hepatobiliary process. Pleural effusion likely from volume state I do not think there is an additional process for how sick he is. I think this was streptococcal toxic shock from left leg in a cirrhosis patient that developed RADHA. His leg does not currently look great but in several ways it looks better than the first 3 days of admission. He is going to have a very slow recovery. CRP about 60% better over the one week since admission. 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 José Miguel Keys is a 72 year old male, transferred to [facility] for sepsis of unknown origin. Other facility states increased SOB, coughing, and sputum production. Also complicated by left leg pain and rash. Surgery consulted for concern of necrotizing fascitis but ruled out. Also presents with RADHA. Pt intubated on 10/11 at 0430 and extubated the same day at 1240. Past medical history includes: Past Medical History: Diagnosis Date Actinic keratosis Arthritis Asthma (HCC) Atrial fibrillation, chronic (HCC) Basal cell carcinoma CAD (coronary artery disease) Clotting disorder (HCC) Colitis COPD (chronic obstructive pulmonary disease) (HCC) Diabetes (HCC) DVT (deep venous thrombosis) (HCC) Dyslipidemia Eczema GERD (gastroesophageal reflux disease) Heart attack (HCC) High blood pressure Hx of blood clots Keloid Kidney disease Lentigo maligna melanoma (HCC) MRSA (methicillin resistant staph aureus) culture positive 07/29/2017; 02/04/19; 04/29/2019 07/29/17-Disc- tissue culture MRSA; R hip; nasal swab+ Obstructive sleep apnea VALENTINA (obstructive sleep apnea) Other cirrhosis of liver (HCC) Peripheral neuropathy Psoriasis S/P PICC central line placement 02/13/2019 [facility] VAT R basilic Seizures (HCC) Squamous cell carcinoma VRE (vancomycin resistant enterococcus) culture positive 04/29/2019 rectal swab+ S: Pt sleeping in bed upon arrival. He had just worked with PT/OT. Pt awakened to verbal and tactile stimuli, but unable to sustain alertness for more than a few seconds. O: Pt on 3L O2 via nasal cannula. Pt intermittently followed simple commands and stated his name. Speech was dysarthric. Oral [facility] exam limited d/t decreased command following. Observed poor/missing dentition, xerostomia with dried secretions stretching between soft palate and tongue. ST provided oral care and suction. Pt given small ice chip x1.Oral phase revealed minimal to absent bolus manipulation with eventual anterior spillage of melted ice. Absent swallow despite verbal or tactile cues. ST provided oral suctioning. No further trials completed d/t pt's poor alertness. Overall, pt presents with severe dysphagia 2/2 current mental status and debility. Recommend strictNPO at this time d/t severe aspiration risk. Provide frequent and thorough oral care Q4-6 for oral infection prevention. RN informed. Patient/Caregiver goals: None stated Assessment: Primary Diagnostic Impression - Oral: Severe;Dysphagia Primary Diagnostic Impression - Pharyngeal: Severe;Dysphagia Risk For Aspiration: Severe AMBRIZ Assessment: MASA Score: 68 Dysphagia Severity Level: Severe (less than or equal to 138) Risk for Aspiration: Severe (less than or equal to 140) Recommend: Diet Solids Recommendation: NPO Diet Liquids Recommendation: NPO Recommended Form of Meds: NPO Risk For Aspiration: Severe Strategies Include: Compensatory Swallowing Strategies: Other (Comments) (Frequent and thorough oral care Q4-6) Results discussed with: Results discussed with:: Patient;Nursing Follow Up: Recommendations: NPO;Dysphagia Treatment Follow Up: Speech therapy to follow. Please refer to Care Plan. If this is the last Speech Therapy visit, this serves as the discharge summary. Thank you for this referral. LISSA Argueta [facility] ATTENDANT 10/18/2023 9:55 AM [phone] * Yanira Macias MD - 10/18/2023 9:51 AM CDT Neurology Progress Note Patient Name José Miguel Keys Days of Admission: 6 Reason for Visit Mental status changes Clinical Course/New Symptoms Patient is a 72 year old male with a history of atrial fibrillation, on Eliquis,CHF, COPD, CKD, coronary artery disease, diabetes,previous DVT, VALENTINA on BiPAP at night who was transferred to our facility secondary to sepsis/ left thigh cellulitis. Rapid response called 10/16/2023 due to increased respiratory distress and mental status changes. 0.4mg narcan given as total of 60mg oxycodone has been given during the last 24 hours. ABG obtained. PH 7.31, CO2 61, HCO3 30.7. CT brain did not show acuteprocess. He is little more awake and able to follow simple commands at times. Data Reviewed CT brain without acute process Ammonia level 26 Objective Patient Vitals for the past 24 hrs: Temp Pulse Resp BP SpO2 O2 % (FiO2) 10/18/23 0900 -- -- -- 133/81 -- -- 10/18/23 0859 -- 89 -- 124/91 99 % -- 10/18/23 0858 -- 89 -- 133/81 99 % -- 10/18/23 0857 -- 92 -- 124/91 98 % -- 10/18/23 0458 -- 98 -- -- 97 % 30 % 10/18/23 0400 98 ??F (36.7 ??C) 95 20 131/78 97 % 30 % 10/18/23 0330 -- 106 19 -- 97 % 30 % 10/18/23 0048 -- -- -- -- -- 30 % 10/18/23 0000 98 ??F (36.7 ??C) 88 12 139/93 97 % 30 % 10/17/232127 -- 98 -- -- 96 % 30 % 10/17/232119 -- 97 14 -- -- -- 10/17/232107 -- 98 -- 130/81 -- -- 10/17/231999 98.4 ??F (36.9 ??C) 88 14 111/63 98 % -- 10/17/23 1809 -- 93 14 -- 99 % -- 10/17/23 1800 -- 87 16 122/73 95 % 30 % 10/17/23 1700 -- 89 23 136/81 97 % 30 % 10/17/23 1600 97.8 ??F (36.6 ??C) 88 15 114/74 97 % 30 % 10/17/23 1500 -- 86 17 107/65 97 % -- 10/17/23 1442 -- 88 16 -- 97 % 30 % 10/17/23 1400 -- 94 19 116/72 98 % 40 % 10/17/23 1300 -- 92 22 132/70 98 % -- 10/17/23 1200 98.1 ??F (36.7 ??C) 95 14 126/82 97 % 40 % 10/17/23 1100 -- 85 15 113/74 98 % 40 % 10/17/23 1000 -- 90 16 123/93 100 % 40 % Labs: Recent Labs Component Name 10/17/23 0358 10/16/23 0355 10/15/23 0444 WBC 16.7* 18.7* 25.4* HGB 11.7* 11.7* 12.1* HCT 38.0* 36.9* 39.1 PLTCOUNT 133* 128* 113* Recent Labs Component Name 10/18/23 0745 10/17/23 1939 10/17/23 1421 10/17/23 0336 10/16/23 2234 10/16/23 0355 SODIUM 153* 149* 154* 146* - 145 POTASSIUM 3.7 3.9 4.5 5.6* - 4.8 CHLORIDE 113* 111* 111* 115* - 111* CO2 28 31* 31* 20* - 24 BUN 81* 86* 92* 89* - 88* CREATININE 2.34* 2.43* 2.34* 2.51* - 2.72* GLUCOSE 152* 106* 91 107* - 112* CALCIUM 9.5 9.5 9.3 9.0 - 9.0 ALBUMIN 2.5* 2.6* 2.6* 2.5* - 2.5* ALKPHOS 81 - - 73 - 65 ALT 45 - - 53 - 52 AST 32 - - 57* - 58* TBIL 1.1 - - 0.5 - 0.5 TPROT 6.8 - - 7.1 - 7.1 EGFR 28* 27* 28* 26* - 24* - = values in this interval not displayed. Recent Labs Component Name 08/20/20 0000 CHOL 150 TRIG 73 HDL 45 Recent Labs Component Name 10/12/23 0503 03/08/23 1349 08/10/22 1259 INR 1.2* 1.0 1.1 I have reviewed chart and the pertinent images and studies are personally reviewed Past Medical History: Diagnosis Date Actinic keratosis Arthritis Asthma (HCC) Atrial fibrillation, chronic (HCC) Basal cell carcinoma CAD (coronary artery disease) Clotting disorder (HCC) Colitis COPD (chronic obstructive pulmonary disease) (HCC) Diabetes (HCC) DVT (deep venous thrombosis) (HCC) Dyslipidemia Eczema GERD (gastroesophageal reflux disease) Heart attack (HCC) High blood pressure Hx of blood clots Keloid Kidney disease Lentigo maligna melanoma (HCC) MRSA (methicillin resistant staph aureus) culture positive 07/29/2017; 02/04/19; 04/29/2019 07/29/17-Disc- tissue culture MRSA; R hip; nasal swab+ Obstructive sleep apnea VALENTINA (obstructive sleep apnea) Other cirrhosis of liver (HCC) Peripheral neuropathy Psoriasis S/P PICC central line placement 02/13/2019 [facility] VAT R basilic Seizures (HCC) Squamous cell carcinoma VRE (vancomycin resistant enterococcus) culture positive 04/29/2019 rectal swab+ 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 Tobramycin Eye Itching red around the eyes, puffy, itchy Family History Problem Relation Name Age of Onset CAD (Coronary Artery Disease) Mother age 65 Cirrhosis Father Cancer - Breast Neg Hx CVA Neg Hx Hemophilia Neg Hx Cancer - Other Neg Hx Eczema Neg Hx Psoriasis Neg Hx Cancer - Skin, Non Melanoma Neg Hx Cancer - Skin, Melanoma Neg Hx Social History Socioeconomic History Marital status: Spouse name: Not on file Number of children: Not on file Years of education: Not on file Highest education level: Not on file Occupational History Not on file Tobacco Use Smoking status: Former Types: Cigarettes Quit date: 06/06/1981 Years since quittin.3 Smokeless tobacco: Never Vaping Use Vaping Use: Never used Substance and Sexual Activity Alcohol use: No Drug use: No Sexual activity: Not on file Other Topics Concern Not on file Social History Narrative Merged History Encounter [place] war Social Determinants of Health Financial Resource Strain: Low Risk (10/14/2023) Overall Financial Resource Strain (CARDIA) Difficulty of Paying Living Expenses: Not hard at all Food Insecurity: No Food Insecurity (10/14/2023) Hunger Vital Sign Worried About Running Out of Food in the Last Year: Never true Ran Out of Food in the Last Year: Never true Transportation Needs: No Transportation Needs (10/14/2023) PRAPARE - Transportation Lack of Transportation (Medical): No Lack of Transportation (Non-Medical): No Stress: No Stress Concern Present (10/14/2023) [employer] - Occupational Stress Questionnaire Feeling of Stress : Only a little Housing Stability: Low Risk (10/14/2023) Housing Stability Vital Sign Unable to Pay for Housing in the Last Year: No Number of Places Lived in the Last Year: 1 Unstable Housing in the Last Year: No MEDICATIONS FOR CURRENT ENCOUNTER: SCHEDULED MEDICATIONS: acetaminophen (Tylenol) tablet 1,000 mg, Enteral Tube, q8h albuterol-ipratropium (Duo-Neb) nebulizer solution 3 mL, Inhalation, q6h apixaban (Eliquis) tablet 5 mg, Enteral Tube, BID aspirin chew tablet 81 mg, Enteral Tube, QDAY cefTRIAXone (Rocephin) 2,000 mg in 0.9% NaCl IV 50 mL IVPB, Intravenous, q24h clindamycin (Cleocin) 900 mg in 50 mL D5W IVPB, Intravenous, q8h docusate sodium (Colace) capsule 100 mg, Oral, BID insulin aspart (NovoLOG) pen 0-12 Units, Subcutaneous, 4X/day - AC & HS lactulose (Chronulac) solution 20 g, Oral, 4X/day metoprolol tartrate IR (Lopressor) tablet 25 mg, Enteral Tube, BID pantoprazole EC (Protonix) tablet 40 mg, Oral, QDAY rifAXIMin (Xifaxan) tablet 550 mg, Enteral Tube, BID venlafaxine XR 24hr (Effexor XR) capsule 37.5 mg, Oral, QDAY WITH BREAKFAST [COMPLETED] furosemide (Lasix) injection 40 mg, Intravenous, Once CONTINUOUS MEDICATIONS: 0.9% NaCl flush bag, Intravenous, CONTINUOUS PRN dextrose 5 % infusion, Intravenous, Continuous PRN MEDICATIONS: Or Or 0.9% NaCl flush bag, Intravenous, CONTINUOUS PRN bisacodyl (Dulcolax) suppository 10 mg, Rectal, QDAY PRN dextrose 10 % IV bolus, Intravenous, PRN dextrose 10 % IV bolus, Intravenous, PRN glucagon (Glucagen) injection 1 mg, Subcutaneous, PRN glucose (Diabetic Use) oral gel, Oral, PRN ondansetron (Zofran) injection 4 mg, Intravenous, q4h PRN senna (Senokot) tablet 8.6 mg, Oral, BID PRN Physical Exam General appearance: well developed, in no apparent distress Head: Atraumatic, no obvious abnormality Neck: Normal carotid pulses, no bruits CVS: S1 S2 heard. No murmurs or gallop heard. Resp: Air entry is equal bilaterally without evidence of crackles or rhonchi. Abd: Non tender, non distended and no evidence of organomegaly. Ext: Distal pulses are preserved, no edema Psychiatric: no depression, no anxiety Skin: No rashes, no change of color Neuro Exam: Mental Status: drowsy, follows simple commands Speech: has BiPAP on, nonverbal Cranial Nerves: 1. (Cranial Nr 2) Fundii - Not able to test, pupil reactive to light 2. (Cranial Nr 3,4,6) Extra Ocular Movements - Intact 3. (Cranial Nr 5) Facial sensation - Equal Bilaterally 4. (Cranial Nr 7) Facial expression - No Facial Asymmetry 5. (Cranial Nr 8) Hearing - Intact to conversation and finger rub 6. (Cranial Nr 9, 10) Voice - No change in quality or pitch Palate - Elevates equally Gag - Present 7. (Cranial Nr 11) Elevate shoulder - Bilaterally without paralysis 8. (Cranial Nr 12) Tongue - No deviation or wasting Motor: Has spontaneous movements in all extremities Sensation: withdrawal to pain Reflexes: DTRs Symmetric 1+ with plantar responses both sides Coordination/Cerebellar: not able to test Gait: not tested. Assessment: 1. Mental status changes Suspect metabolic encephalopathy secondary to infection and respiratory distress Neurologically would like to rule out nonconvulsive seizure and embolic strokes CT brain without acute process 2. Septic shock Left thigh cellulitis Group G strep bacteremia 3. 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 RADHA on CKD 5. History of MICHAUD liver cirrhosis 6. COPD Plan: 1. EEG is pending 2. Continue Eliquis and low dose of ASA 3. Pulmonology follows On BiPAP 4. On Ceftriaxone and Cleocin 5. Ammonia level checked which is normal Continues with Lactulose 6. Consider MRI brain if MS does not improve in the next 1-2 days 7. Follow up with exam Yanira Macias MD * Geraldine Gonzalez, OT - 10/18/2023 9:43 AM CDT Occupational Therapy Treatment Summary Chart reviewed for history of presenting illness, diagnosis and medical history Nursing consented for OT. Discharge Recommendation: Discharge OT Discharge Recommendations: Other: (TBD pending hospital course and progression in therapy) Recommended Transportation Method: To be Determined AM-PAC Basic mobility score for this patient is Daily Activity Raw Score:: 6 PPE worn by staff: gloves;mask - procedural Explained purpose of OT and patient consented to participate in therapy. Precautions: Falls / Safety/ 3L NC/ Lethargic,delayed response SUBJECTIVE: Subjective: patient only moans and groans, no clear spoken language occurs Psychosocial: Patient Behaviors: Cooperative Pt's goal for therapy: none stated, agreeable to participate in OT OBJECTIVE: Pain Assessment: Pain Location #1 Pain Scale/Observation: Numeric (0-10) Pain Rating Score #1: (pain indicated with mobility to EOB, moans and groans btu does not rate) Cognition: Orientation Level: Unable to Obtain (mumbles his name) Level of Consciousness-Adult: Drowsy Cognition: Follows one step commands;Follows Commands-inconsistent;Processing-delayed;Judgement-decreased;Safety awareness-decreased;Attention/concentration-decreased Functional Mobility: Bed Mobility: Rolling: Total Assistance Supine to Sit: Maximum Assistance;X 2 Sit to Supine: Maximum Assistance;X 2 Transfers: Sit to Stand: Activity Does Not Occur Stand to Sit: Activity Does Not Occur Balance: Poor sitting balance, attempts to self correct while seated EOB with trace abdominal contraction togain balance. Basic ADL's: (Through clinical assessment, observation and professional judgement) Feeding: (NPO) Oral Facial Hygiene: Total Assistance Bathing: Total Assistance Upper Body Dressing: Total Assistance Lower Body Dressing: Total Assistance Toileting: Total Assistance Activity Tolerance/Vital Signs: 10/18/23 0859 10/18/23 0900 Activity Tolerance Activity Tolerance Requires rest breaks;Tolerates sitting more than 5 minutes -- SpO2 99 % -- Pulse 89 -- BP 124/91 (supine pre activity) 133/81 (supine post activity) MAP 104 99 ASSESSMENT: Pt found supine in bed. Lethargic, opens eyes to verbal stimulation. He moans and groans throughoutsession but is agreeable to participate. He completes supine to sit with max A of 2 to the R and sits EOB for 6 minutes with max A for balance. While seated EOB he follows 3/5 one step commands inconsistently and demonstrates attempts at muscle contraction for squeezing hands and wiggling toes. He does not track a stimulus out of midline and appears to have a blank stare despite constant cueing and stimulation provided. He was returned to supine at end of session, max A of 2, repositioned to lay on left side with wedge under right hip. Offloading boots in place and alarm activated. At the end of the session, the patient was made comfortable and left with all needs in reach. Overall, the patient's ability to participate in self-care tasks and functional mobility at baseline level of function is decreased. All questions and concerns addressed prior to OT departure. All lines, monitors, IV's, equipment in place and intact pre and post visit. RN notified of patient's performance/location end of session. Educated patient with benefits of additional OT services following DC from acute care. RECOMMENDATIONS/PLAN: Continue per OT POC. Progress patient's functional activity tolerance & participation for self-care tasks to increase safety and independence with ADL and IADLS upon discharge. Discharge Recommendation: Discharge OT Discharge Recommendations: Other: (TBD pending hospital course and progression in therapy) Recommended Transportation Method: To be Determined If this is the last Occupational Therapy visit, this serves as the discharge summary. OT x [phone] * Wendy Arteaga, PT - 10/18/2023 9:33 AM CDT Physical Therapy Treatment Summary Chart review completed. Nursing consented for PT. Explained purpose of PT and patient consented to participate in therapy. RECOMMENDATIONS/PLAN: Continue per POC. PT Discharge Recommendations: Other: (TBD pending pt's hospital course and progress with therapy.) Recommended Transportation Method: To be Determined PPE worn by staff: gloves;mask - procedural AM-PAC Basic mobility score for this patient is Mobility Raw Score:: 8 SUBJECTIVE: Not stated; pt looks to name being stated. Patient's Goal for the Day: Work with PT. Pain Assessment: Pain Location #1 Pain Scale/Observation: Numeric (0-10) Pain Rating Score #1: (not rated/expressed) OBJECTIVE: Cognition: Orientation Level: Unable to Obtain (inconsistently looks to name being stated) Cognition: Follows Commands-inconsistent;Follows one step commands;Attention/concentration-decreased;Processing-delayed Level of Consciousness-Adult: Drowsy;Responds to verbal stimuli Participation: Compliant Precautions: Fall Bed Mobility: Rolling: Maximal Assistance to Right;Maximal Assistance to Left Supine to Sit: Maximum Assistance;X 2 Sit to Supine: Maximum Assistance;X 2 Transfers: Sit to Stand: Activity Does Not Occur Stand to Sit: Activity Does Not Occur Mobility: Distance Ambulated (ft): 0 FEET Ambulation: Level of Assistance: Activity Does Not Occur Weight Bearing Status-LLE: Weight Bearing as Tolerated Weight Bearing Status-RLE: Weight Bearing as Tolerated Weight Bearing Status-LUE: Weight Bearing as Tolerated Weight Bearing Status-RUE: Weight Bearing as Tolerated Balance: Sitting - Static: Poor Sitting - Dynamic: Poor Vital signs: 10/18/23 0857 10/18/23 0858 Activity Tolerance Activity Tolerance Requires rest breaks -- SpO2 98 % 99 % Pulse 92 89 BP 124/91 (supine - pre activity) 133/81 (supine - post activity) MAP 104 99 Oxygen Therapy O2 L/M 3 -- $ O2 DEVICE Nasal Cannula $ -- ASSESSMENT: Pt supine in bed on entry in agreement to work with PT. Pt looks to name being stated and inconsistently follows simple commands throughout (ie: stick out tongue, squeeze finger, wiggle toes, smile, etc.). With HOB elevated, bed mobility transfer completed with MaxA x 2 to achieve sitting EOB. Pt with posterior lean in sitting with need for constant MaxA to remain sitting at midline, despite cueing. Pt tolerates about 6 minutes in total sitting EOB. Vitals WNL. Noted pt makes attempts at muscle contraction for squeezing hands, wiggling toes, and shrugging shoulders when cued however unable to fully complete task d/t increased weakness. As time in sitting progressed, noted pt to present with increased fatigue made evident by trouble keeping eyes open. Assisted pt back to supinein bed. All pt needs met prior to leaving, bed alarm activated, and RN informed. Call light and phone in reach with bed alarm activated. All lines, monitors, IV's, equipment in place and intact pre and post visit. Pt educated in PT plan of care, fall precautions, and benefits of OOB activity. RNAlia, notified of patient's performance/location end of session. No, Manager Banking, present to assist throughout the session. Please refer to the Filed Flowsheet for further details. Refer to Plan of Care for PT goals. If this is the last Physical Therapy visit, this note serves as the discharge summary. X [phone] * Tiffany Fortune MD - 10/18/2023 8:42 AM CDT Admit Date: 10/12/2023 4:19 AM Hospital Day: 6 Follow Up Acute respiratory failure, AMS New Symptoms Patient still lethargic but follows commands per Nursing. Needs stimulation to awaken Data Vitals: 10/18/23 0000 10/18/23 0330 10/18/23 0400 10/18/23 0458 BP: 139/93 131/78 Pulse: 88 106 95 98 Resp: 12 19 20 Temp: 98 ??F (36.7 ??C) 98 ??F (36.7 ??C) SpO2: 97% 97% 97% 97% Weight: Height: Temp (30hrs) Max:98.4 ??F (36.9 ??C) Intake/Output Summary (Last 24 hours) at 10/18/2023 0842 Last data filed at 10/18/2023 0736 Gross per 24 hour Intake 1095.94 ml Output 3550 ml Net -2454.06 ml Medications have been reviewed Exam General appearance: a no distress HEENT: Grossly unremarkable Heart: regular rhythm, normal S1 and S2, Lungs: breath sounds clear Abdomen: soft Extremities: + edema Neuro: No focal deficits. Recent Labs Component Name 10/17/23 0358 10/16/23 0355 10/15/23 0444 WBC 16.7* 18.7* 25.4* HGB 11.7* 11.7* 12.1* HCT 38.0* 36.9* 39.1 PLTCOUNT 133* 128* 113* Recent Labs Component Name 10/18/23 0745 10/17/23 1939 10/17/23 1421 03/08/23 1347 08/23/22 2024 02/09/22 0921 08/03/21 1025 01/09/21 1055 09/05/20 1325 02/03/19 0106 09/19/17 0243 09/18/17 0003 SODIUM 153* 149* 154* - - - 139 137 140 - - - NA - - - - 141 - - - - - 138 140 POTASSIUM 3.7 3.9 4.5 - 4.6* - 4.7 4.4 4.2 - 4.9* 3.4* CHLORIDE 113* 111* 111* - - - 102 102 103 - - - CO2 28 31* 31* - 26 - 27 26 28 - 34* 35* BUN 81* 86* 92* - 26 - 41* 50* 27* - 26 25 CREATININE 2.34* 2.43* 2.34* - 1.60* - 1.89* 2.07* 1.46* - 0.6 0.6 GLUCOSE 152* 106* 91 - 113 - 124* 144* 109* - 153* 135* CALCIUM 9.5 9.5 9.3 - 10.3* - 9.6 9.7 9.9 - 9.1 9.0 EGFR 28* 27* 28* - 45* - 35* 31* 48* - >60 >60 EGFRAFR - - - - - - 40* 36* 55* - - - - = values in this interval not displayed. @ Recent Labs Component Name 10/17/23 2117 10/17/23 1434 10/17/23 0811 10/17/23 0420 10/12/23 0508 09/10/17 0557 09/09/17 0841 09/09/17 0422 FIO2 - 30.0 40.0 40.0 - 40.0 100.0 100.0 PH 7.39 7.45 7.32* 7.32* - 7.45 7.51* 7.41 PCO2 57* 48* 61* 61* - 44 38 45 BE 7.8* 8.2* 3.8* 3.9* - 5.4* 5.7* 2.4* HCO3 - - - - - 30.0* 29.2* 27.4* PO2 135* 86 146* 110* - 80 274* 65* O2SAT 100 99 99 99 - - - - USC9VDK 34.5* 33.4* 31.4* 31.4* - - - - - = values in this interval not displayed. Assessment/Plan: Acute hypercapnic respiratory failure: Patient is currently on BiPAP with an IPAP of 30 and EPAP of14 with 40 percent oxygen bled in. Significant improvement with resolution of respiratory acidosis but has chronic hypercapnia. Continue BIPAP at HS for now and place on NC during the day as tolerated Altered mental status: Much mor awake and follows commands. However, still requires stimulation to awaken. Presumed to be secondary to hypercapnic respiratory failure. Bilateral pleural effusion with attendant atelectasis: CXR 10/17/2023 shows significant improvement with small let pleural effusion. Patient is on diuretics given anasarca. Group G Streptococcus bacteremia per blood cultures at outside facility: Patient is currently on ceftriaxone and clindamycin. Id is following patient Excessive narcotic use during this hospitalization: Patient is now off Narcan drip Anasarca: Echocardiogram showed EF of 45 percent, patient is currently on Lasix 40 mg b.i.d.. BNP remains elevated but patient is clinically less fluid overloaded. May need to decrease diuretics dose History of atrial fibrillation: Patient has been on beta-fe and Eliquis Code status: Full * Anita Churchill RN - 10/18/2023 7:47 AM CDT SITUATIONAL AWARENESS NOTE PATIENT'S NAME: José Miguel Keys BIRTHDATE: 1950 CODE STATUS: Full Code PRIMARY CONCERN FOR SITUATIONAL AWARENESS: Rapid Response within the past 48 hours OBSERVATIONS: Patient in bed, eyes closed, open eyes to verbal stimuli, Lethargic, moans to painfulstimuli, weak, LACY, follow some simple commands, bi- lateral pupils 3 round, brisk and reactive, unable to track with eyes, NAD, respirations regular and non labored, lungs coarse diminished, 1+ generalized edema, on Bi-Pap 30% IPAP 30/ EPAP14,sat's 97% labs to be completed, abdomen distended, bowelsound present, patient has a FMS with brown liquid stool return, NG intact, Cabral yellow clear urine, left leg laisha area marked with no increase, DPT and PT pulses palpable, tele afib 80, last BP at bedside to evaluate patient. 1000 Patient in 2L NC, NAD, VSS, TELE AFIB 80'S. PLAN: Continue current plan as detailed in daily progress note. OUTCOME: Remains in current room ESCALATION PLAN: If patient begins to clinically deteriorate or there are any significant changes please call a rapid response. Plan discussed with - . Everyone is in agreement with the plan. 30 minutes spent on patient assessment, review of relevant data, and documentation. * Jody Miranda, CENTRAL OFFICE SUPERVISOR-BRIDGE REPAIR CREW PERSON - 10/18/2023 7:32 AM CDT SURGERY PROGRESS NOTE José Miguel Keys 1950 10/18/2023 Hospital Day: 6 Left leg cellulitis Clinical Course Intubated, sedated, Exam Vitals: 10/18/23 0000 10/18/23 0330 10/18/23 0400 10/18/23 0458 BP: 139/93 131/78 Pulse: 88 106 95 98 Resp: 12 19 20 Temp: 98 ??F (36.7 ??C) 98 ??F (36.7 ??C) SpO2: 97% 97% 97% 97% Weight: Height: Intake/Output Summary (Last 24 hours) at 10/18/2023 0733 Last data filed at 10/18/2023 0438 Gross per 24 hour Intake 1095.94 ml Output 3550 ml Net -2454.06 ml General appearance: appears ill Lungs: ETT in place, vented breath sounds normal and symmetric; Heart: regular rhythm, normal S1 and S2, without murmurs, gallops or rubs Abdomen: soft, non-tender, with normal bowel sounds Extremities: moves leg to painful stimuli Skin: LLE erythematous, no fluctuance, induration, open wounds or crepitus MEDICATIONS FOR CURRENT ENCOUNTER: SCHEDULED MEDICATIONS: acetaminophen (Tylenol) tablet 1,000 mg, Oral, q8h albuterol-ipratropium (Duo-Neb) nebulizer solution 3 mL, Inhalation, q6h apixaban (Eliquis) tablet 5 mg, Oral, BID aspirin chew tablet 81 mg, Enteral Tube, QDAY cefTRIAXone (Rocephin) 2,000 mg in 0.9% NaCl IV 50 mL IVPB, Intravenous, q24h clindamycin (Cleocin) 900 mg in 50 mL D5W IVPB, Intravenous, q8h docusate sodium (Colace) capsule 100 mg, Oral, BID insulin aspart (NovoLOG) pen 0-12 Units, Subcutaneous, 4X/day - AC & HS lactulose (Chronulac) solution 20 g, Oral, 4X/day metoprolol tartrate IR (Lopressor) tablet 25 mg, Oral, BID pantoprazole EC (Protonix) tablet 40 mg, Oral, QDAY rifAXIMin (Xifaxan) tablet 550 mg, Oral, BID venlafaxine XR 24hr (Effexor XR) capsule 37.5 mg, Oral, QDAY WITH BREAKFAST [COMPLETED] furosemide (Lasix) injection 40 mg, Intravenous, Once CONTINUOUS MEDICATIONS: 0.9% NaCl flush bag, Intravenous, CONTINUOUS PRN dextrose 5 % infusion, Intravenous, Continuous PRN MEDICATIONS: Or Or 0.9% NaCl flush bag, Intravenous, CONTINUOUS PRN bisacodyl (Dulcolax) suppository 10 mg, Rectal, QDAY PRN dextrose 10 % IV bolus, Intravenous, PRN dextrose 10 % IV bolus, Intravenous, PRN glucagon (Glucagen) injection 1 mg, Subcutaneous, PRN glucose (Diabetic Use) oral gel, Oral, PRN ondansetron (Zofran) injection 4 mg, Intravenous, q4h PRN senna (Senokot) tablet 8.6 mg, Oral, BID PRN Data My review of labs, imaging, notes and other tests is significant for : Recent Labs Component Name 10/17/23 1939 10/17/23 1421 10/17/23 0336 SODIUM 149* 154* 146* POTASSIUM 3.9 4.5 5.6* CHLORIDE 111* 111* 115* CO2 31* 31* 20* BUN 86* 92* 89* CREATININE 2.43* 2.34* 2.51* GLUCOSE 106* 91 107* CALCIUM 9.5 9.3 9.0 Recent Labs Component Name 10/17/23 0358 10/16/23 0355 10/15/23 0444 WBC 16.7* 18.7* 25.4* HGB 11.7* 11.7* 12.1* HCT 38.0* 36.9* 39.1 PLTCOUNT 133* 128* 113* Assessment and Plan No clinical or radiologic evidence of necrotizing fasciitis IV abx- ID following Pain control No plans for surgical intervention Surgery will see SHAGUFTA Conklin Associated attestation - Jorge Jamison DO - 10/18/2023 1:22 PM CDT Patient seen and examined with CUT OFF TENDER GLASS. Chart, labs, and imaging reviewed by me. Please see CUT [employer] T[employer]ER GLASS note for further details. I was present for the glaser portions of any procedures performed and always available. I confirm history, exam, assessment and plan with the following exceptions/additions: Left lower extremity cellulitis Still no concerns for necrotizing fasciitis No surgical intervention required Care per primary medical team Will see lucio Jamison DO 10/18/2023 1:22 PM General Surgeon, [facility] Office: [phone] [facility] Office: [phone] Exchange: [phone] * Aviva Vega RCP - 10/18/2023 1:10 AM CDT Patient put on BiPap resting will continue to follow per orders. * Silas Newman RN - 10/17/2023 9:05 PM CDT SITUATIONAL AWARENESS NOTE PATIENT'S NAME: José Miguel Keys BIRTHDATE: 1950 CODE STATUS: Full Code PRIMARY CONCERN FOR SITUATIONAL AWARENESS: Rapid Response within the past 48 hours OBSERVATIONS: Pt laying in bed with primary RN at bedside. Pt A&Ox0 and only responds to painful stimuli. Pt non verbal currently and only grunts and moans. Pt's eyes open spontaneously but are not tracking. Primary RN reports no change in pt condition since today. Pt has NG tube in place and cabral catheter. Pt has not had BM since 10/12 but does have active bowel sounds. VS BP 130/81, temp 97.8, HR 98 bpm afib, 14 RR, 99% on 3L NC with diminished lung sounds, but plan is for bipap overnight. 0500: Pt asleep. Primary RN states no changes or issues with pt during the night. Pt remained on bipap during the night. VSS. Will continue to monitor. PLAN: Continue current plan as detailed in daily progress note. Continue Critical Response Nurse rounding OUTCOME: Remains in current room ESCALATION PLAN: If patient begins to clinically deteriorate or there are any significant changes please call a rapid response. Plan discussed with - nursing, senior mechanical designer, hospitalist, and patient. Everyone is in agreement withthe plan. 40 minutes spent on patient assessment, review of relevant data, and documentation. * Omi Fortune MD - 10/17/2023 12:20 PM CDT Internal Medicine Progress Note -Hospitalist Admit Date: 10/12/2023 4:19 AM Hospital Day: 5 Clinical Course: New Symptoms: Patient unable to communicate symptoms, but does not appear to be in any distress. Objective: Vitals: 10/17/23 0814 10/17/23 0900 10/17/23 1000 10/17/23 1100 BP: 132/72 123/93 113/74 Pulse: 81 79 90 85 Resp: 20 19 16 15 Temp: 97.9 ??F (36.6 ??C) SpO2: 100% 98% 100% 98% Weight: Height: General appearance: Intubated and ventilated Heart: normal rate Lungs: breath sounds normal and symmetric; no rales or wheezes Abdomen: soft without mass, non-tender, with normal bowel sounds Extremities: no clubbing, cyanosis or edema, chronic venous insufficiency changes on bilateral calves. Left thigh is red and tender. Intake/Output Summary (Last 24 hours) at 10/17/2023 1220 Last data filed at 10/17/2023 1143 Gross per 24 hour Intake 1508.61 ml Output 4000 ml Net -2491.39 ml Current Medications: MEDICATIONS FOR CURRENT ENCOUNTER: SCHEDULED MEDICATIONS: And acetaminophen (Tylenol) tablet 1,000 mg, Oral, q8h albuterol-ipratropium (Duo-Neb) nebulizer solution 3 mL, Inhalation, q6h apixaban (Eliquis) tablet 5 mg, Oral, BID aspirin chew tablet 81 mg, Enteral Tube, QDAY cefTRIAXone (Rocephin) 2,000 mg in 0.9% NaCl IV 50 mL IVPB, Intravenous, q24h clindamycin (Cleocin) 900 mg in 50 mL D5W IVPB, Intravenous, q8h docusate sodium (Colace) capsule 100 mg, Oral, BID furosemide (Lasix) injection 80 mg, Intravenous, BID insulin aspart (NovoLOG) pen 0-12 Units, Subcutaneous, 4X/day - AC & HS lactulose (Chronulac) solution 20 g, Oral, 4X/day metoprolol tartrate IR (Lopressor) tablet 25 mg, Oral, BID pantoprazole EC (Protonix) tablet 40 mg, Oral, QDAY rifAXIMin (Xifaxan) tablet 550 mg, Oral, BID venlafaxine XR 24hr (Effexor XR) capsule 37.5 mg, Oral, QDAY WITH BREAKFAST [COMPLETED] calcium gluconate 10 % injection 1 g, Intravenous, Once [COMPLETED] dextrose 10 % IV bolus, Intravenous, Once [COMPLETED] furosemide (Lasix) injection 40 mg, Intravenous, Once [COMPLETED] insulin regular human (HumuLIN R; NovoLIN R) 100 UNIT/ML injection 5 Units, Intravenous, Once [COMPLETED] insulin regular human (HumuLIN R; NovoLIN R) 100 UNIT/ML injection 5 Units, Intravenous, Once [COMPLETED] naloxone (Narcan) injection 0.4 mg, Intravenous, Once [COMPLETED] naloxone (Narcan) injection 0.4 mg, Intravenous, Once CONTINUOUS MEDICATIONS: 0.9% NaCl flush bag, Intravenous, CONTINUOUS PRN dextrose 10 % IV bolus, Intravenous, Continuous PRN MEDICATIONS: Or Or 0.9% NaCl flush bag, Intravenous, CONTINUOUS PRN bisacodyl (Dulcolax) suppository 10 mg, Rectal, QDAY PRN dextrose 10 % IV bolus, Intravenous, PRN dextrose 10 % IV bolus, Intravenous, PRN glucagon (Glucagen) injection 1 mg, Subcutaneous, PRN glucose (Diabetic Use) oral gel, Oral, PRN ondansetron (Zofran) injection 4 mg, Intravenous, q4h PRN senna (Senokot) tablet 8.6 mg, Oral, BID PRN Data: Recent Labs Component Name 10/17/23 0336 10/16/23 2234 10/16/23 0355 SODIUM 146* 149* 145 POTASSIUM 5.6* 4.9 4.8 BUN 89* 93* 88* CREATININE 2.51* 2.65* 2.72* GLUCOSE 107* 127* 112* Recent Labs Component Name 10/17/23 0358 10/16/23 0355 10/15/23 0444 WBC 16.7* 18.7* 25.4* HGB 11.7* 11.7* 12.1* HCT 38.0* 36.9* 39.1 PLTCOUNT 133* 128* 113* CT FEMUR LEFT WO CONTRAST Result Date: 10/12/2023 PROCEDURE: CT FEMUR LEFT WO CONTRAST DATE/TIME OF EXAM: 10/12/2023 10:00 AM CLINICAL INFORMATION: None relevant/not provided if blank. Indication: A41.89: Other specified sepsis (HCC) Additional History: Pain and swelling in left thigh COMPARISON: None. TECHNIQUE: CT of the left femur was performed utilizing standard protocol. CT dose reduction technique was used, including Automated Exposure Control. FINDINGS: There is a small left knee joint effusion. Severe degenerative change is seen in all 3compartments of the left knee. There is moderate edema in the skin and subcutaneous soft tissues along the medial aspect of the left thigh consistent with a moderate cellulitis. No gas is seen in the soft tissues. No inflammatory change is seen in the fascial planes between the muscles of the left thigh. There is no evidence for a drainable abscess. No swelling of the muscles in the left thigh isseen. There is a left total hip arthroplasty. No evidence for a hardware complication. IMPRESSION: There is a moderate cellulitis in the skin and subcutaneous soft tissues along the medial aspect of the left thigh. No gas is seen in the soft tissues. No drainable abscess collection is seen. No evidence for inflammatory change in the fascial planes of the left thigh. 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 > Interpreting Provider: Jose Alberto Kemp MD on 10/12/2023 11:59 AM XR CHEST 1VW PORTABLE Result Date: 10/12/2023 PROCEDURE: XR CHEST 1VW PORTABLE DATE/TIME OF EXAM: 10/12/2023 5:55 AM INDICATION: J96.00: Acute respiratory failure, unspecified whether with hypoxia or hypercapnia (HCC) COMPARISON: May 01, 2019ADDITIONAL CLINICAL INFORMATION (if provided): Ordering Provider Reason For Exam: Findings: There is an ET tube in the distal trachea less than 3 cm from the mattie. There is a right internal jugularcatheter projecting over the superior vena cava and a nasogastric tube is seen entering the upper abdomen The heart is borderline enlarged. The aorta is normal in caliber. The patient is severely rotated to the left limiting detail. There is some mild pleural and parenchymal change left base and blunting of the left costophrenic sulcus There is no confluent infiltrate .. There is no pneumothorax.There is no mass or adenopathy.. IMPRESSION: Tubes and lines in adequate position without a pneumothorax Oral and parenchymal changeat the left base slightly progressive in the interval > Interpreting Provider: Alberto Atwood MDon 10/12/2023 8:23 AM Assessment and Plan Altered mental status Patient had a rapid yesterday for altered mental status. It was thought to be due to hypercapnia and opioids. He was started on Narcan drip and placed on BiPAP. He is still very lethargic. Differential for altered mental status is very broad. Possible hypercapnia versus opioid overdose versus hepatic encephalopathy versus encephalitis versus seizure versus metabolic encephalopathy Repeat ABG shows compensated respiratory acidosis. Monitor on BiPAP. Repeat ABG in the afternoon. Pulmonology on board. CT head without any acute abnormalities. He does have cirrhosis. Started on Xifaxan and lactulose. Ammonia pending. Neurology consulted. Appreciate recommendations. Septic shock POA Left thigh cellulitis Group G Strep bacteremia Leukocytosis secondary to above Lactic acidosis secondary to above Patient transferred from outside facility in septic shock. 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 Labs significant for leukocytosis and lactic acidosis. Blood cultures at outside facility reported as GPC. Speciation pending 10/11: CT scan of the thigh shows: Moderate cellulitis in the skin and subcutaneous soft tissues along the medial aspect of the left thigh. No gas. No drainable abscess. No evidence of inflammatory change in the facial planes. 10/14: I called the surgery team for repeat evaluation. They suggested to get repeat CT. It shows progressive diffuse subcutaneous edema of the left thigh but no organized fluid collection, no soft tissue gas collection. Continue with IV ceftriaxone and clindamycin Surgery and Infectious Disease on board. Acute on chronic hypoxemic respiratory failure HFpEF COPD Patient has a history of CHF and COPD. Initially intubated for worsening respiratory status. Extubated on 10/11. Continue with breathing treatment Goal-directed medical therapy held Atrial fibrillation Restarted on beta-fe and Eliquis RADHA with CKD Likely a combination of ATN in the setting of shock and contrast induced nephropathy Monitor BMP Nephrology on board History of cirrhosis secondary to MICHAUD. Monitor LFTs Patient's Functional Baseline prior to admit: independent Discharge Planning to Next Site of Care: Other: tbd Anticipated discharge date: tbd READMISSION RISK SCORE is 16 at 12:20 PM 10/17/2023. DVT prophylaxis: heparin Full Code Omi Fortune MD 10/17/2023 12:20 PM Portions of this note may be dictated using voice recognition software. Variances in spelling and vocabulary are possible and unintentional. Not all errors are caught/corrected. Please notify the author if any discrepancies are noted or if the meaning of any statement is not clear. These grammatical oversights have no impact on the medical care provided to the patient. Time in which this note is created does not match the time of rounding/clinical exam. * Bell Gilliam RD/SALVADOR - 10/17/2023 12:16 PM CDT Brief Synopsis: Patient is at nutrition risk but does not meet malnutrition criteria. Energy Intake: < 75% of estimated energy requirement for > 7 days Nutrition Plan: Current diet order: NPO Current supplement order: ensure 1.5 tid (350 kcal 20 g protein each) Recommendations to Physician: if pt unable to take po safely recommend dobhoff placement and tube feeding recommend nepro @ 35 ml/hr (provides 1512 kcal 68 g protein) Discharge Needs: pending clinical course Nutrition Reassessment Changes in condition/Patient Summary: pt back on bipap not awake alert enough for po Assessment Med/Surg History and Clinical Diagnoses: Fluid and electrolyte disorder: hyperkalemia requiring further monitoring Thrombocytopenia Thrombocytopenia requiring further monitoring Hypoalbuminemia requiring further monitoring Chronic kidney disease: Chronic Kidney Disease, Unspecified Cardiac arrhythmia: Atrial fibrillation, unspecified Congestive Heart Failure Shock: Severe sepsis with shock Obesity Patient receiving mechanical ventilation Weight Review Height: 180.3 cm (5' 10.98 ) Last Weight: 111.1 kg (245 lb) (10/14/23 0643) Last Weight Method : Bed scale (10/14/23 0643) [place] Body Weight IBW/lb (Calculated) Male: 171.904 BMI: Body mass index is 34.19 kg/m??. BMI Range: Obese Class 1 Weight Assessment: no new wt Wt Readings from Last 10 Encounters: 10/14/23 111.1 kg (245 lb) 05/12/23 111.1 kg (245 lb) 03/21/23 110.7 kg (244 lb) 10/07/22 120.7 kg (266 lb) 08/23/22 120.7 kg (266 lb) 08/23/22 120.7 kg (266 lb) 02/23/22 120.2 kg (265 lb) 08/17/21 121.1 kg (267 lb) 12/30/20 114.8 kg (253 lb) 08/26/20 114.9 kg (253 lb 6.4 oz) Patient Vitals for the past 336 hrs: Weight Weight Method 10/14/23 0643 111.1 kg (245 lb) Bed scale 10/12/23 0507 111.1 kg (244 lb 14.9 oz) -- PO INTAKE Current diet order: NPO Food Allergies: Other (Comments) (all Peppers) Last % Meal Taken: 0 % (10/15/23 1845) Current supplement order: ensure 1.5 tid (350 kcal 20 g protein each) Supplement(s) Consumed- Last 48 hours None PO Intake Assessment: poor GI Concerns: (last bm 5/9 +) Chewing/Swallowing: Other (Comment) (pt on bipap) Skin/Wound: BLE reddened tender Last Skin Condition: Swollen;Cellulitis;Excoriation;Flaky (10/17/23 0800) Pain affecting intake: No Estimated Needs: KCAL: 2950-0246 based on 11-14 kcal/kg actual wt Protein (g): 94 based on 1.2 g/kg ibw Fluid (ml): 1 ml/kcal Needs based on: Kcal/kg- (Comment) Recommended Access Route: TF Labs: Recent Labs Component Name 10/17/23 0336 SODIUM 146* POTASSIUM 5.6* CHLORIDE 115* CO2 20* BUN 89* CREATININE 2.51* GLUCOSE 107* CALCIUM 9.0 ALBUMIN 2.5* ALKPHOS 73 ALT 53 AST 57* TBIL 0.5 TPROT 7.1 EGFR 26* Recent Labs Component Name 10/15/23 0444 10/14/23 0337 10/12/23 1136 PHOS 5.3* 4.8* 3.7 Recent Labs Component Name 10/13/23 0346 02/03/19 0106 07/14/17 221 HGBA1C 6.5* 5.8 6.3 Patient Vitals for the past 30 hrs: Glucose Bedside (mg/dL) 10/17/23 1049 100 mg/dL 10/17/23 0630 (!) 76 mg/dL 10/17/23 0535 124 mg/dL 10/17/23 0453 91 mg/dL 10/16/23 2331 145 mg/dL 10/16/23 2154 141 mg/dL 10/16/23 1802 128 mg/dL 10/16/23 1300 136 mg/dL 10/16/23 0654 107 mg/dL Recent Labs Component Name 07/28/17 0045 07/16/17 2332 07/14/17 2211 AMMONIA 27 27 31 PERTINENT MEDICATIONS FOR CURRENT ENCOUNTER: SCHEDULED MEDICATIONS: And acetaminophen (Tylenol) tablet 1,000 mg, Oral, q8h albuterol-ipratropium (Duo-Neb) nebulizer solution 3 mL, Inhalation, q6h apixaban (Eliquis) tablet 5 mg, Oral, BID aspirin chew tablet 81 mg, Enteral Tube, QDAY cefTRIAXone (Rocephin) 2,000 mg in 0.9% NaCl IV 50 mL IVPB, Intravenous, q24h clindamycin (Cleocin) 900 mg in 50 mL D5W IVPB, Intravenous, q8h docusate sodium (Colace) capsule 100 mg, Oral, BID furosemide (Lasix) injection 80 mg, Intravenous, BID insulin aspart (NovoLOG) pen 0-12 Units, Subcutaneous, 4X/day - AC & HS lactulose (Chronulac) solution 20 g, Oral, 4X/day metoprolol tartrate IR (Lopressor) tablet 25 mg, Oral, BID pantoprazole EC (Protonix) tablet 40 mg, Oral, QDAY rifAXIMin (Xifaxan) tablet 550 mg, Oral, BID venlafaxine XR 24hr (Effexor XR) capsule 37.5 mg, Oral, QDAY WITH BREAKFAST [COMPLETED] calcium gluconate 10 % injection 1 g, Intravenous, Once [COMPLETED] dextrose 10 % IV bolus, Intravenous, Once [COMPLETED] furosemide (Lasix) injection 40 mg, Intravenous, Once [COMPLETED] insulin regular human (HumuLIN R; NovoLIN R) 100 UNIT/ML injection 5 Units, Intravenous, Once [COMPLETED] insulin regular human (HumuLIN R; NovoLIN R) 100 UNIT/ML injection 5 Units, Intravenous, Once [COMPLETED] naloxone (Narcan) injection 0.4 mg, Intravenous, Once [COMPLETED] naloxone (Narcan) injection 0.4 mg, Intravenous, Once ~~~~~~~~~~~~~~~~~~~~~~~~~~~~~~~~ Nutrition Diagnostic Statement: Inadequate oral intake related to:: decreased ability to consume ortolerate food and/or fluids due to illness as evidenced by:: oral intake insufficient to meet estimated requirements Nutrition Intervention: Meals and snacks:;Collaboration with other providers Education Provided: Not appropriate (10/12/23 1100) Recommendation/Plan: Nutrition recommendation: alter/change nutrition order (initiate tube feeding if unable to take po safely) Monitoring: Ability to adv po diet and consume adequately vs need for tube feeding Labs Skin integrity Plan of care Evaluation: Nutrition Goal: Intake will be improved to 75% or greater of meals/snacks Nutrition Goal Timeframe: Throughout stay * Bell Gilliam RD/LD - 10/17/2023 12:15 PM CDT Problem: Oral Intake: Inadequate oral intake Goal: Total intake will meet estimated nutrient needs Outcome: Not Progressing Pt npo on bipap With no po intake over past 7 days * Enid Kearns, ELISE - 10/17/2023 11:56 AM CDT Speech Language Pathology: Chart reviewed and spoke with RN. Pt is currently on BiPAP. Will follow up at a later date. Enid Wynne MA, CCC-LOCKER ATTENDANT 10/17/23 [id number] * Aneta Campbell DO - 10/17/2023 11:29 AM CDT Infectious Diseases Progress Note José Miguel Nia Keys 10/13/2023 Hospital Day 5 Subjective Remains lethargic and not following commands on BiPAP Was on narcan drip. CT Head this morning no acute process Afebrile WBC slowly trending down Abx Clindamycin 10/11- Ceftriaxone 10/12- Vanc 10/11-10/13 Flagyl 10/11-10/12 Cefepime 10/11 Exam BP 113/74 Pulse 85 Temp 97.9 ??F (36.6 ??C) (Axillary) Resp 15 Ht 1.803 m (5' 10.98 ) Wt 111.1 kg (245 lb) SpO2 98% BMI 34.19 kg/m?? General: NAD Neuro: lethargic, withdraws legs to touch Lungs: non-labored on BiPAP, diminished at bases CV: normal rate, regular Abd: soft, no guarding, bowel sounds hypoactive Ext: Left thigh area of redness less induration, redness has extended beyond initial marking from admit, more proximal and anterior. Redness with warmth to the lower left leg somewhat improved. R IJ CVC 10/10-10/13 Data Recent Labs Component Name 10/17/23 0358 10/16/23 0355 10/15/23 0444 WBC 16.7* 18.7* 25.4* HGB 11.7* 11.7* 12.1* HCT 38.0* 36.9* 39.1 PLTCOUNT 133* 128* 113* Recent Labs Component Name 10/17/23 0336 10/16/23 2234 10/16/23 0355 SODIUM 146* 149* 145 POTASSIUM 5.6* 4.9 4.8 CHLORIDE 115* 111* 111* CO2 20* 30* 24 BUN 89* 93* 88* CREATININE 2.51* 2.65* 2.72* GLUCOSE 107* 127* 112* CALCIUM 9.0 9.2 9.0 Recent Labs Component Name 10/17/23 0336 10/16/23 0355 10/15/23 0444 ALBUMIN 2.5* 2.5* 2.5* ALKPHOS 73 65 65 ALT 53 52 44 AST 57* 58* 58* TBIL 0.5 0.5 0.5 TPROT 7.1 7.1 7.6 Microbiology Blood culture 10/10 Dandre Group G Strep (R clinda) 10/11 negative Radiology 10/10 CXR: Mild interstitial edema vs senescent change 10/10 Venous Doppler LLE: No DVT 10/10 CTA Chest: Distended gallbladder, cholelithiasis. No PE 10/10 CT A/P wo: stone in gallbladder neck. L1-2 fusion. Mild peripancreatic inflammatory changes 10/11 CT LLE wo: There is a moderate cellulitis in the skin and subcutaneous soft tissues along the medial aspect of the left thigh. No gas is seen in the soft tissues. No drainable abscess collection is seen. No evidence for inflammatory change in the fascial planes of the left thigh. 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 10/15 CT C/A/P wo: Moderate bilateral loculated pleural effusions. Slightly nodular [...] blood products given an adjacent soft tissue contusioninjury in the left lateral soft tissues and a mildly displaced left posterior 11th rib fracture. Nofree air identified. Subtle hazy stranding in the upper abdominal mesentery which could reflect posttraumatic changes/mesenteric injury or mesenteritis. This is in proximity of the pancreas however is felt less likely reflect pancreatitis. Recommend correlation with patient history and lipase. Diffuse bladder wall thickening which could be seen in the setting of cystitis. Recommend correlation with urinalysis. MEDICATIONS FOR CURRENT ENCOUNTER: SCHEDULED MEDICATIONS: And acetaminophen (Tylenol) tablet 1,000 mg, Oral, q8h albuterol-ipratropium (Duo-Neb) nebulizer solution 3 mL, Inhalation, q6h apixaban (Eliquis) tablet 5 mg, Oral, BID aspirin chew tablet 81 mg, Enteral Tube, QDAY cefTRIAXone (Rocephin) 2,000 mg in 0.9% NaCl IV 50 mL IVPB, Intravenous, q24h clindamycin (Cleocin) 900 mg in 50 mL D5W IVPB, Intravenous, q8h docusate sodium (Colace) capsule 100 mg, Oral, BID furosemide (Lasix) injection 80 mg, Intravenous, BID insulin aspart (NovoLOG) pen 0-12 Units, Subcutaneous, 4X/day - AC & HS metoprolol tartrate IR (Lopressor) tablet 25 mg, Oral, BID pantoprazole EC (Protonix) tablet 40 mg, Oral, QDAY venlafaxine XR 24hr (Effexor XR) capsule 37.5 mg, Oral, QDAY WITH BREAKFAST [COMPLETED] calcium gluconate 10 % injection 1 g, Intravenous, Once [COMPLETED] dextrose 10 % IV bolus, Intravenous, Once [COMPLETED] furosemide (Lasix) injection 40 mg, Intravenous, Once [COMPLETED] insulin regular human (HumuLIN R; NovoLIN R) 100 UNIT/ML injection 5 Units, Intravenous, Once [COMPLETED] insulin regular human (HumuLIN R; NovoLIN R) 100 UNIT/ML injection 5 Units, Intravenous, Once [COMPLETED] naloxone (Narcan) injection 0.4 mg, Intravenous, Once [COMPLETED] naloxone (Narcan) injection 0.4 mg, Intravenous, Once CONTINUOUS MEDICATIONS: 0.9% NaCl flush bag, Intravenous, CONTINUOUS PRN dextrose 10 % IV bolus, Intravenous, Continuous PRN MEDICATIONS: Or Or 0.9% NaCl flush bag, Intravenous, CONTINUOUS PRN bisacodyl (Dulcolax) suppository 10 mg, Rectal, QDAY PRN dextrose 10 % IV bolus, Intravenous, PRN dextrose 10 % IV bolus, Intravenous, PRN glucagon (Glucagen) injection 1 mg, Subcutaneous, PRN glucose (Diabetic Use) oral gel, Oral, PRN ondansetron (Zofran) injection 4 mg, Intravenous, q4h PRN senna (Senokot) tablet 8.6 mg, Oral, BID PRN Assessment --Group G strep septicemia with septic shock, concern for left thigh nec fasc or cellulitis with myositis and Streptococcal toxic shock syndrome CK and CRP not majorly elevated, CK seems to have peaked Weaned off pressors IVIG 10/11-10/12 CT WITHOUT contrast without evidence for gas 10/11 and 10/14. Surgery evaluated and both times recommended no surgery CT C/A/P non-specific peripancreatic finding was also reported on outside initial CT and his lipasewas normal on admit. Liver enzymes not consistent with a hepatobiliary process. Pleural effusion likely from volume state I do not think there is an additional process for how sick he is. I think this was streptococcal toxic shock from left leg in a cirrhosis patient that developed RADHA. His leg does not currently look great but in several ways it looks better than the first 3 days of admission. He is going to have a very slow recovery. 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 In setting of cirrhosis could also start on empiric rifaximin or lactulose, will defer to medicine. -continued surgical eval -nephrology managing RADHA Updated at bedside Discussed with hospitalist, Dr Fortune * Tamara Bauman MD - 10/17/2023 10:05 AM CDT Images from the original note were not included. Nephrology Progress Note Admit Date: 10/12/2023 4:19 AM Hospital Day: 5 Assessment: Acute kidney injury-ATN secondary shock status and hypotension + ELLIOTT -creatinine 2.94 on 10/12 -creatinine 1.8 08/2022 -creatinine baseline 1.5 since 2019 Hyperkalemia Metabolic acidosis Sepsis Possible lower extremity cellulitis Shock status-possibly sepsis Acute hypoxic respiratory failure History of COPD History of AFib History of CHF History of cirrhosis secondary to MICHAUD Full Code *PCP is Provider Unknown* Recommendations: SCr slightly better today K noted Lasix given this morning Repeat RFP ordered at 2pm Maintain Cabral catheter Checked urine lytes Antibiotics per ID Gabapentin held Steroids taper per primary team Surgical team following Avoid hypotension Avoid further IV contrast and NSAIDs No acute indications for dialysis Reason for Consult Acute kidney injury Clinical Course 10/12/2023: Admitted 10/12: Renal consult 10/13: Urine output 760 cc in last 24 hours. Off pressors. On low-rate LR 10/14: Somnolent. Cabral removed early this morning. 10/15: Cabral replaced due to continued urinary retention. 10/16: [employer] called overnight due to AMS. Given narcan, placed on BiPAP, transferred to step down for closer monitoring. Remains on narcan drip this morning. New Symptoms Somnolent. General: somnolent Heart: regular rhythm, S1S2, without rub Lungs: breath sounds diminished; no wheezes or crackles; no distress at rest on O2 via NC Abdomen: soft without mass, non-tender, with bowel sounds Extremities: no clubbing or cyanosis, no edema. Redness bilateral lower extremity-more indurated redness on the left upper thigh Circulation: no central access Genitalia: Cabral present Data Vitals: 10/17/23 0600 10/17/23 0700 10/17/23 0800 10/17/23813 BP: 102/76 117/75 115/66 Pulse: 81 80 81 81 Resp: 20 Temp: 97.9 ??F (36.6 ??C) SpO2: 100% 100% 100% 100% Weight: Height: Supplemental Oxygen (last filed value): O2 % (FiO2): 40 % (10/17/23 0814) Temp (30hrs) Max:98 ??F (36.7 ??C) Intake/Output Summary (Last 24 hours) at 10/17/2023 1005 Last data filed at 10/17/2023 0959 Gross per 24 hour Intake 1508.61 ml Output 3100 ml Net -1591.39 ml Admission weight: Weight: 111.1 kg (244 lb 14.9 oz) (10/12/23 0507) Most recent weight: Weight: 111.1 kg (245 lb) (10/14/23 0643) Recent Labs Component Name 10/17/23 0336 10/16/23 2234 10/16/23 0355 10/15/23 0444 10/14/23 0337 10/13/23 0346 10/12/23 1136 SODIUM 146* 149* 145 141 138 - 137 POTASSIUM 5.6* 4.9 4.8 5.2* 4.9 - 5.3* CHLORIDE 115* 111* 111* 108* 105 - 107 CO2 20* 30* 24 24 - 21* BUN 89* 93* 88* 81* 72* - 41* CREATININE 2.51* 2.65* 2.72* 2.95* 2.96* - 2.82* GLUCOSE 107* 127* 112* 115* 137* - 173* CALCIUM 9.0 9.2 9.0 9.0 8.8 - 8.4 ALBUMIN 2.5* - 2.5* 2.5* 2.4* - 2.6* PHOS - - - 5.3* 4.8* - 3.7 - = values in this interval not displayed. Recent Labs Component Name 10/17/23 0336 10/16/23 2234 10/16/23 0355 EGFR 26* 25* 24* Recent Labs Component Name 10/17/23 0336 10/16/23 0355 10/15/23 0444 MAGNESIUM 2.7* 2.6 2.4 Recent Labs Component Name 10/17/23 0358 10/16/23 0355 10/15/23 0444 WBC 16.7* 18.7* 25.4* HGB 11.7* 11.7* 12.1* HCT 38.0* 36.9* 39.1 PLTCOUNT 133* 128* 113* Recent Labs Component Name 10/15/23 0444 10/14/23 0337 10/13/23 1153 CK 440* 786* 905* MEDICATIONS FOR CURRENT ENCOUNTER: SCHEDULED MEDICATIONS: And acetaminophen (Tylenol) tablet 1,000 mg, Oral, q8h albuterol-ipratropium (Duo-Neb) nebulizer solution 3 mL, Inhalation, q6h apixaban (Eliquis) tablet 5 mg, Oral, BID aspirin chew tablet 81 mg, Enteral Tube, QDAY cefTRIAXone (Rocephin) 2,000 mg in 0.9% NaCl IV 50 mL IVPB, Intravenous, q24h clindamycin (Cleocin) 900 mg in 50 mL D5W IVPB, Intravenous, q8h docusate sodium (Colace) capsule 100 mg, Oral, BID furosemide (Lasix) injection 40 mg, Intravenous, Once furosemide (Lasix) injection 80 mg, Intravenous, BID insulin aspart (NovoLOG) pen 0-12 Units, Subcutaneous, 4X/day - AC & HS metoprolol tartrate IR (Lopressor) tablet 25 mg, Oral, BID pantoprazole EC (Protonix) tablet 40 mg, Oral, QDAY venlafaxine XR 24hr (Effexor XR) capsule 37.5 mg, Oral, QDAY WITH BREAKFAST [COMPLETED] calcium gluconate 10 % injection 1 g, Intravenous, Once [COMPLETED] dextrose 10 % IV bolus, Intravenous, Once [COMPLETED] insulin regular human (HumuLIN R; NovoLIN R) 100 UNIT/ML injection 5 Units, Intravenous, Once [COMPLETED] insulin regular human (HumuLIN R; NovoLIN R) 100 UNIT/ML injection 5 Units, Intravenous, Once [COMPLETED] iron sucrose (Venofer) 300 mg in 0.9% NaCl IV 285 mL IVPB, Intravenous, QDAY [COMPLETED] naloxone (Narcan) injection 0.4 mg, Intravenous, Once [COMPLETED] naloxone (Narcan) injection 0.4 mg, Intravenous, Once CONTINUOUS MEDICATIONS: 0.9% NaCl flush bag, Intravenous, CONTINUOUS PRN dextrose 10 % IV bolus, Intravenous, Continuous PRN MEDICATIONS: Or Or 0.9% NaCl flush bag, Intravenous, CONTINUOUS PRN dextrose 10 % IV bolus, Intravenous, PRN dextrose 10 % IV bolus, Intravenous, PRN glucagon (Glucagen) injection 1 mg, Subcutaneous, PRN glucose (Diabetic Use) oral gel, Oral, PRN ondansetron (Zofran) injection 4 mg, Intravenous, q4h PRN senna (Senokot) tablet 8.6 mg, Oral, BID PRN * Monisha Emanuel)Makayla RN - 10/17/2023 9:51 AM CDT Care Coordination Progress Note Anticipated level of care at discharge: Care Home - Skilled Facility, Home Health Care Comment: see progress sect for all snf referrals made: Anticipated level of care provider: None: Anticipated Discharge Date: 10/20/23: Discharge Plan: patient remains in ICU/Stepdown. IV ABX, IV Lasix, now on Narcan drip, has requested [facility] [place], [place]. Patient here from [place] Orientation Level: Unable to Obtain: Family Support (Name and Phone): Extended Emergency Contact Information Primary Emergency Contact: Trinity Keys Address: [address] [place] [address] [place] [address] [facility] Relation: Spouse City Manager needed? No Transportation at Discharge: Ambulance: READMISSION RISK SCORE is 16 at 9:51 AM 10/17/2023.: Name: Makayla Echavarria RN * Anita Churchill RN - 10/17/2023 8:15 AM CDT SITUATIONAL AWARENESS NOTE PATIENT'S NAME: José Miguel Keys BIRTHDATE: 1950 CODE STATUS: Full Code PRIMARY CONCERN FOR SITUATIONAL AWARENESS: Rapid Response within the past 48 hours OBSERVATIONS: Patient in bed, eyes closed, open eyes to verbal stimuli, Lethargic , nonverbal, weak, LACY not to commands, bi-lateral pupils 3 round, brisk and reactive, unable to track with eyes, NAD, respirations regular and non labored, lungs coarse diminished, 1= generalized edema, on Bi-Pap 40%IPAP 30/ EPAP14, ABG completed , PH 7.32 , PCO2 61, PO2 146, HCO3 31.4, abdomen distended, slightlyfirm, bowel sound present, last BM documented on 10/13/23, left leg laisha area marked with no increase, DPT and PT pulses palpable, tele afib 80, last BP 115/66, patient remains on a Narcan gtt 1 mg /hr. Dr. Fortune at bedside to evaluate patient. Primary RN updated him with the information above, orders were noted, Head CT, BNP, and Neurology consult. 0947 Narcan drip DC per Dr. Fortune. [address] with No acute process, patient remains on Bi-pap, will repeat ABG and Renal Panel at 1400. 1600 Patient open eyes to name, then appears to try to speak, unable to follow commands, NAD, Primary RN will follow up with Dr. Fortune with ABG results. PLAN: Continue current plan as detailed in daily progress note. Continue Critical Response Nurse rounding OUTCOME: Remains in current room ESCALATION PLAN: If patient begins to clinically deteriorate or there are any significant changes please call a rapid response. Plan discussed with - Everyone is in agreement with the plan. 40 minutes spent on patient assessment, review of relevant data, and documentation. * Radha Malone MSW - 10/17/2023 8:12 AM CDT New Facility Referral Follow-up Pt remains in the ICU. Level of Care (SNF/Medicaid NH/Rehab/Safety Lead Care/LTACH): snf requested should pt be unable to rtn hme once stable for discharge. This worker spke with pts. spouse Trinity Keys @ [phone], last week,,and below [facility]/ [facility]/ [facility] per spouse requestedif new snf needed @ time of discharge. Fac has an [employer] contract.Fac willing to review for possible admit. Ss updated fac pt is not yet stable for discharge currently remains in the ICU. MD's following for medical stability. Ss will continue to send updates for fac review. Rtn call rcd from Moni with [facility] admissions, ss explained pt is NOT yet ready for discharge updates will be sent daily and when closer to discharge will then need final answer.Fac asked to please continue to follow for possible admit and they plan to follow. Assist appreciated. Additional info to follow/ updates will be sent daily.- updates sent again today 10/16 Referrals initiated: Continued Care and Services - Admitted Since 10/12/2023 Destination Service Provider Request Status Selected Services Address Phone Fax Patient Preferred [facility] Pending - Request Sent N/A [id number] [facility] [address] [place] [phone] -- If Medicare-3 day qualifying stay verified: pt has [employer] and will need an Auth to transfer to any snf. [facility] to obtain snf Auth if to snf once fac with approval with an available bed. See cm note for all Auth updates if pt to snf @ time of discharge. monitoring facility responses Comments/changes:if to snf nrsg to please send fac orders,chart and discharge summary. Name: CHRIS Garcia Phone: [phone] * Wendy Arteaga, PT - 10/17/2023 8:00 AM CDT Pt chart reviewed. Spoke with RN Eula this AM. Per discussion with RN, request to hold PT at this time as pt is not appropriate for PT. Will hold and follow with PT at a later time/date, as appropriate. X [phone] * Enid Crowder, OT - 10/17/2023 7:50 AM CDT Attempted to see pt for OT, however RN states pt not appropriate at this time. Pt not following commands. Will follow up at another time as appropriate. OT [id number] * Fernanda Acuna RN - 10/17/2023 4:16 AM CDT 10/16/23 2300 Rex Scale - Adult Sensory Perception 3 Moisture 3 Activity 1 Mobility 2 Nutrition 2 Friction and Shear 1 Total Score 12 Pt undressed and assessed by two RNs, bathed with CHG. Patient has reddened/deep purple buttocks. No open wounds noted. Lower extremities purple/red. Cellulitis noted to patient's left upper and inner thigh. * Meron Luna RN - 10/16/2023 11:10 PM CDT Pts spouse notified that pt was transferred to room 257 for higher level of care. Pt transferred toroom 257 via bed with all belongings. * Nora Raza RCP - 10/16/2023 8:13 PM CDT Problem: Impaired Gas Exchange Goal: Resp rate/effort will be within specified limits Description: To maintain oxygen within normal parameters. RT to monitor. Flowsheets (Taken 10/16/20232005) Resp: 18 SpO2: 97 % Note: José Miguel will maintain oxygen saturation within normal parameters. Currently on 2L breathing treatmenst Q6, and will wear home CPAP. * Omi Fortune MD - 10/16/2023 1:29 PM CDT Internal Medicine Progress Note -Hospitalist Admit Date: 10/12/2023 4:19 AM Hospital Day: 4 Clinical Course: New Symptoms: Patient unable to communicate symptoms, but does not appear to be in any distress. Objective: Vitals: 10/16/23 0358 10/16/23 0740 10/16/23 0746 10/16/23 1109 BP: 128/62 125/78 145/87 Pulse: 95 90 91 Resp: 18 20 20 Temp: 97.5 ??F (36.4 ??C) 98 ??F (36.7 ??C) 97.5 ??F (36.4 ??C) SpO2: 94% 97% 97% 96% Weight: Height: General appearance: Intubated and ventilated Heart: normal rate Lungs: breath sounds normal and symmetric; no rales or wheezes Abdomen: soft without mass, non-tender, with normal bowel sounds Extremities: no clubbing, cyanosis or edema, chronic venous insufficiency changes on bilateral calves. Left thigh is red and tender. Intake/Output Summary (Last 24 hours) at 10/16/2023 1329 Last data filed at 10/16/2023 1329 Gross per 24 hour Intake 270 ml Output 2550 ml Net -2280 ml Current Medications: MEDICATIONS FOR CURRENT ENCOUNTER: SCHEDULED MEDICATIONS: acetaminophen (Tylenol) tablet 1,000 mg, Oral, q8h albuterol-ipratropium (Duo-Neb) nebulizer solution 3 mL, Inhalation, q6h apixaban (Eliquis) tablet 5 mg, Oral, BID aspirin chew tablet 81 mg, Enteral Tube, QDAY cefTRIAXone (Rocephin) 2,000 mg in 0.9% NaCl IV 50 mL IVPB, Intravenous, q24h clindamycin (Cleocin) 900 mg in 50 mL D5W IVPB, Intravenous, q8h docusate sodium (Colace) capsule 100 mg, Oral, BID gabapentin (Neurontin) oral solution 100 mg, Oral, TID insulin aspart (NovoLOG) pen 0-12 Units, Subcutaneous, 4X/day - AC & HS metoprolol tartrate IR (Lopressor) tablet 25 mg, Oral, BID pantoprazole EC (Protonix) tablet 40 mg, Oral, QDAY venlafaxine XR 24hr (Effexor XR) capsule 37.5 mg, Oral, QDAY WITH BREAKFAST [COMPLETED] furosemide (Lasix) injection 40 mg, Intravenous, Once [COMPLETED] hydrocortisone sodium succinate PF (Solu-CORTEF) injection 50 mg, Intravenous, q12h [COMPLETED] iron sucrose (Venofer) 300 mg in 0.9% NaCl IV 285 mL IVPB, Intravenous, QDAY CONTINUOUS MEDICATIONS: 0.9% NaCl flush bag, Intravenous, CONTINUOUS PRN PRN MEDICATIONS: Or Or 0.9% NaCl flush bag, Intravenous, CONTINUOUS PRN baclofen (Lioresal) tablet 10 mg, Oral, TID PRN dextrose 10 % IV bolus, Intravenous, PRN dextrose 10 % IV bolus, Intravenous, PRN glucagon (Glucagen) injection 1 mg, Subcutaneous, PRN glucose (Diabetic Use) oral gel, Oral, PRN ondansetron (Zofran) injection 4 mg, Intravenous, q4h PRN oxyCODONE (immediate release) (Roxicodone) tablet 10 mg, Oral, q4h PRN oxyCODONE (immediate release) (Roxicodone) tablet 20 mg, Oral, q4h PRN senna (Senokot) tablet 8.6 mg, Oral, BID PRN Data: Recent Labs Component Name 10/16/23 0355 10/15/23 0444 10/14/23 0337 SODIUM 145 141 138 POTASSIUM 4.8 5.2* 4.9 BUN 88* 81* 72* CREATININE 2.72* 2.95* 2.96* GLUCOSE 112* 115* 137* Recent Labs Component Name 10/16/23 0355 10/15/23 0444 10/14/23 0337 WBC 18.7* 25.4* 26.3* HGB 11.7* 12.1* 11.0* HCT 36.9* 39.1 35.0* PLTCOUNT 128* 113* 109* CT FEMUR LEFT WO CONTRAST Result Date: 10/12/2023 PROCEDURE: CT FEMUR LEFT WO CONTRAST DATE/TIME OF EXAM: 10/12/2023 10:00 AM CLINICAL INFORMATION: None relevant/not provided if blank. Indication: A41.89: Other specified sepsis (HCC) Additional History: Pain and swelling in left thigh COMPARISON: None. TECHNIQUE: CT of the left femur was performed utilizing standard protocol. CT dose reduction technique was used, including Automated Exposure Control. FINDINGS: There is a small left knee joint effusion. Severe degenerative change is seen in all 3compartments of the left knee. There is moderate edema in the skin and subcutaneous soft tissues along the medial aspect of the left thigh consistent with a moderate cellulitis. No gas is seen in the soft tissues. No inflammatory change is seen in the fascial planes between the muscles of the left thigh. There is no evidence for a drainable abscess. No swelling of the muscles in the left thigh isseen. There is a left total hip arthroplasty. No evidence for a hardware complication. IMPRESSION: There is a moderate cellulitis in the skin and subcutaneous soft tissues along the medial aspect of the left thigh. No gas is seen in the soft tissues. No drainable abscess collection is seen. No evidence for inflammatory change in the fascial planes of the left thigh. 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 > Interpreting Provider: Jose Alberto Kemp MD on 10/12/2023 11:59 AM XR CHEST 1VW PORTABLE Result Date: 10/12/2023 PROCEDURE: XR CHEST 1VW PORTABLE DATE/TIME OF EXAM: 10/12/2023 5:55 AM INDICATION: J96.00: Acute respiratory failure, unspecified whether with hypoxia or hypercapnia (HCC) COMPARISON: May 01, 2019ADDITIONAL CLINICAL INFORMATION (if provided): Ordering Provider Reason For Exam: Findings: There is an ET tube in the distal trachea less than 3 cm from the mattie. There is a right internal jugularcatheter projecting over the superior vena cava and a nasogastric tube is seen entering the upper abdomen The heart is borderline enlarged. The aorta is normal in caliber. The patient is severely rotated to the left limiting detail. There is some mild pleural and parenchymal change left base and blunting of the left costophrenic sulcus There is no confluent infiltrate .. There is no pneumothorax.There is no mass or adenopathy.. IMPRESSION: Tubes and lines in adequate position without a pneumothorax Oral and parenchymal changeat the left base slightly progressive in the interval > Interpreting Provider: Alberto Atwood MDon 10/12/2023 8:23 AM Assessment and Plan Septic shock POA Left thigh cellulitis Group G Strep bacteremia Leukocytosis secondary to above Lactic acidosis secondary to above Patient transferred from outside facility in septic shock. 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 Labs significant for leukocytosis and lactic acidosis. Blood cultures at outside facility reported as GPC. Speciation pending 10/11: CT scan of the thigh shows: Moderate cellulitis in the skin and subcutaneous soft tissues along the medial aspect of the left thigh. No gas. No drainable abscess. No evidence of inflammatory change in the facial planes. 10/14: I called the surgery team for repeat evaluation. They suggested to get repeat CT. It shows progressive diffuse subcutaneous edema of the left thigh but no organized fluid collection, no soft tissue gas collection. Continue with IV ceftriaxone and clindamycin CT chest abdomen and pelvis without contrast pending. Surgery and Infectious Disease on board. Acute on chronic hypoxemic respiratory failure HFpEF COPD Patient has a history of CHF and COPD. Initially intubated for worsening respiratory status. Extubated on 10/11. Continue with breathing treatment Goal-directed medical therapy held Atrial fibrillation Restarted on beta-fe and Eliquis RADHA with CKD Likely a combination of ATN in the setting of shock and contrast induced nephropathy Monitor BMP Nephrology on board History of cirrhosis secondary to MICHAUD. Monitor LFTs Patient's Functional Baseline prior to admit: independent Discharge Planning to Next Site of Care: Other: tbd Anticipated discharge date: tbd READMISSION RISK SCORE is 16 at 1:29 PM 10/16/2023. DVT prophylaxis: heparin Full Code Omi Fortune MD 10/16/2023 1:29 PM Portions of this note may be dictated using voice recognition software. Variances in spelling and vocabulary are possible and unintentional. Not all errors are caught/corrected. Please notify the author if any discrepancies are noted or if the meaning of any statement is not clear. These grammatical oversights have no impact on the medical care provided to the patient. Time in which this note is created does not match the time of rounding/clinical exam. * Siria Kaye MD - 10/16/2023 12:25 PM CDT General and Vascular Surgery Progress Note Surgical Arts Left leg cellulitis Subjective Complaints: Patient with metabolic encephalopathy. Has persistent generalized anasarca and left legredness and tenderness. He is able to flex his hip bend his knee and move his toes without significant discomfort. No open wound on left leg. No fever, no tachycardia, no hypotension. Patient has had a good result with Lasix for diuresis. Data Vitals: 10/16/23 0358 10/16/23 0740 10/16/23 0746 10/16/23 1109 BP: 128/62 125/78 145/87 Pulse: 95 90 91 Resp: 18 20 20 Temp: 97.5 ??F (36.4 ??C) 98 ??F (36.7 ??C) 97.5 ??F (36.4 ??C) SpO2: 94% 97% 97% 96% Weight: Height: Intake/Output Summary (Last 24 hours) at 10/16/2023 1225 Last data filed at 10/16/2023 0604 Gross per 24 hour Intake 270 ml Output 2200 ml Net -1930 ml Lab Recent Labs Component Name 10/16/23 0355 10/15/23 0444 10/14/23 0337 WBC 18.7* 25.4* 26.3* HGB 11.7* 12.1* 11.0* HCT 36.9* 39.1 35.0* PLTCOUNT 128* 113* 109* Recent Labs Component Name 10/16/23 0355 10/15/23 0444 10/14/23 0337 SODIUM 145 141 138 POTASSIUM 4.8 5.2* 4.9 CHLORIDE 111* 108* 105 CO2 BUN 88* 81* 72* CREATININE 2.72* 2.95* 2.96* GLUCOSE 112* 115* 137* CALCIUM 9.0 9.0 8.8 Recent Labs Component Name 10/12/23 0503 03/08/23 1349 08/10/22 1259 PT 15.6* 11.0 10.9 Recent Labs Component Name 10/12/23 0503 03/08/23 1349 08/10/22 1259 INR 1.2* 1.0 1.1 Recent Labs Component Name 10/12/23 0503 02/04/19 0737 09/10/17 0549 PTT 32.6 26.4 29.7 No results for input(s): CEA in the last [id number] hours. No results found for this or any previous visit. Medications MEDICATIONS FOR CURRENT ENCOUNTER: SCHEDULED MEDICATIONS: acetaminophen (Tylenol) tablet 1,000 mg, Oral, q8h albuterol-ipratropium (Duo-Neb) nebulizer solution 3 mL, Inhalation, q6h apixaban (Eliquis) tablet 5 mg, Oral, BID aspirin chew tablet 81 mg, Enteral Tube, QDAY cefTRIAXone (Rocephin) 2,000 mg in 0.9% NaCl IV 50 mL IVPB, Intravenous, q24h clindamycin (Cleocin) 900 mg in 50 mL D5W IVPB, Intravenous, q8h docusate sodium (Colace) capsule 100 mg, Oral, BID gabapentin (Neurontin) oral solution 100 mg, Oral, TID insulin aspart (NovoLOG) pen 0-12 Units, Subcutaneous, 4X/day - AC & HS metoprolol tartrate IR (Lopressor) tablet 25 mg, Oral, BID pantoprazole EC (Protonix) tablet 40 mg, Oral, QDAY venlafaxine XR 24hr (Effexor XR) capsule 37.5 mg, Oral, QDAY WITH BREAKFAST [COMPLETED] furosemide (Lasix) injection 40 mg, Intravenous, Once [COMPLETED] hydrocortisone sodium succinate PF (Solu-CORTEF) injection 50 mg, Intravenous, q12h [COMPLETED] iron sucrose (Venofer) 300 mg in 0.9% NaCl IV 285 mL IVPB, Intravenous, QDAY CONTINUOUS MEDICATIONS: 0.9% NaCl flush bag, Intravenous, CONTINUOUS PRN Physical Exam General appearance: Confused, encephalopathic, no distress Lungs: breath sounds normal and symmetric; course rales or wheezes Abdomen: Obese, soft without mass, non-tender, with normal bowel sounds Abdominal pannus edematous but no evidence of wound or tenderness or subcu emphysema. Extremities: Able to flex his left leg at hip knee and ankle without discomfort. No subcutaneous emphysema. No fluid collection. There is superficial erythema and underlying tenderness on the left thigh mostly on the medial aspect. Review of Systems General: No fatigue or weight loss Eyes: No vision changes or pain Neuro: No mental status changes or dizziness Cardiovascular: No chest pain or palpitations Pulmonary: No shortness of breath or wheezing. GI: No abdominal pain, no nausea. Musculoskeletal: No muscle pain or joint pain Skin: No rashes or texture changes Hematologic: No easy bruising or bleeding Rectal: No rectal bleeding or pain Assessment/Plan No clinical or radiologic evidence of necrotizing fasciitis. No plan for any surgery. CT scan of left lower extremity results and images reviewed. Patient has responded well with diuresis to Lasix therapy. Consider CT of chest abdomen and pelvis with possible HIDA scan to evaluate other causes as well. Past Medical History: Diagnosis Date Actinic keratosis Arthritis Asthma (HCC) Atrial fibrillation, chronic (HCC) Basal cell carcinoma CAD (coronary artery disease) Clotting disorder (HCC) Colitis COPD (chronic obstructive pulmonary disease) (HCC) Diabetes (HCC) DVT (deep venous thrombosis) (HCC) Dyslipidemia Eczema GERD (gastroesophageal reflux disease) Heart attack (HCC) High blood pressure Hx of blood clots Keloid Kidney disease Lentigo maligna melanoma (HCC) MRSA (methicillin resistant staph aureus) culture positive 07/29/2017; 02/04/19; 04/29/2019 07/29/17-Disc- tissue culture MRSA; R hip; nasal swab+ Obstructive sleep apnea VALENTINA (obstructive sleep apnea) Other cirrhosis of liver (HCC) Peripheral neuropathy Psoriasis S/P PICC central line placement 02/13/2019 [facility] VAT R basilic Seizures (HCC) Squamous cell carcinoma VRE (vancomycin resistant enterococcus) culture positive 04/29/2019 rectal swab+ * Paz Peterson, PT - 10/16/2023 11:38 AM CDT Attempted to see for PT, but per nurse pt not responding well to commands, etc and is going MIRYAM forCT. Will f/u another time as appropriate. 2828/2831 * Philippe Baird, ELISE - 10/16/2023 10:14 AM CDT CLINICAL SWALLOW EVALUATION Speech Pathology: Order received and chart reviewed. Clinical Dysphagia Evaluation completed. Please refer to Clinical Swallow Study doc flowsheet for full results. José Miguel Keys is a 72 year old male, transferred to [facility] for sepsis of unknown origin. Other facility states increased SOB, coughing, and sputum production. Also complicated by left leg pain and rash. Surgery consulted for concern of necrotizing fascitis but ruled out. Also presents with RADHA. Pastmedical history includes: Past Medical History: Diagnosis Date Actinic keratosis Arthritis Asthma (HCC) Atrial fibrillation, chronic (HCC) Basal cell carcinoma CAD (coronary artery disease) Clotting disorder (HCC) Colitis COPD (chronic obstructive pulmonary disease) (HCC) Diabetes (HCC) DVT (deep venous thrombosis) (HCC) Dyslipidemia Eczema GERD (gastroesophageal reflux disease) Heart attack (HCC) High blood pressure Hx of blood clots Keloid Kidney disease Lentigo maligna melanoma (HCC) MRSA (methicillin resistant staph aureus) culture positive 07/29/2017; 02/04/19; 04/29/2019 07/29/17-Disc- tissue culture MRSA; R hip; nasal swab+ Obstructive sleep apnea VALENTINA (obstructive sleep apnea) Other cirrhosis of liver (HCC) Peripheral neuropathy Psoriasis S/P PICC central line placement 02/13/2019 [facility] VAT R basilic Seizures (HCC) Squamous cell carcinoma VRE (vancomycin resistant enterococcus) culture positive 04/29/2019 rectal swab+ ST ordered for cognition/speech/and swallow function after concerns of altered mental status, pocketing solids, and at times not initiating swallow. Currently on regular/thin liquid diet. Noted to have wet/gurgly congested upper airway prior to PO trials, suctioning provided. Pt lying in bed with eyes open this date but in fixed gaze. Did not follow commands and x1 instance of vocalization/groaning without intentional communication attempt. Oral health revealed mild xerostomia. Unable to complete oral mechanism exam d/t inability to follow commands. Oral care completed. Pt observed with limited PO trials of single ice chips x2. Oral phase revealed no bolus manipulation, anterior spillage ofmelted liquid. Absent swallow despite verbal or tactile cues. Melted liquid suctioned with pharyngeal suctioning also provided. Overall, pt presents with severe dysphagia 2/2 current mental status and debility. Recommend strictNPO at this time d/t severe aspiration risk. Provide frequent and thorough oral care Q4-6 for oral infection prevention. RN informed. Patient/Caregiver goals: unstated Assessment: Primary Diagnostic Impression - Oral: Severe;Dysphagia Primary Diagnostic Impression - Pharyngeal: Severe;Dysphagia Risk For Aspiration: Severe AMBRIZ Assessment: MASA Score: 68 Dysphagia Severity Level: Severe (less than or equal to 138) Risk for Aspiration: Severe (less than or equal to 140) Recommend: Diet Solids Recommendation: NPO Diet Liquids Recommendation: NPO Recommended Form of Meds: NPO Risk For Aspiration: Severe Strategies Include: Compensatory Swallowing Strategies: Other (Comments) (Frequent and thorough oral care Q4-6) Results discussed with: Results discussed with:: Patient;Nursing Follow Up: Recommendations: NPO;Dysphagia Treatment Follow Up: Speech therapy to follow. Please refer to Care Plan. If this is the last Speech Therapy visit, this serves as the discharge summary. Thank you for this referral. Philippe Garcia M.S. CCC-LOCKER ATTENDANT, CBIS 10/16/2023 10:15 AM [phone] * Thaddeus Jorgensen MD - 10/16/2023 8:09 AM CDT Images from the original note were not included. Nephrology Progress Note Admit Date: 10/12/2023 4:19 AM Hospital Day: 4 Assessment: Acute kidney injury-ATN secondary shock status and hypotension + ELLIOTT -creatinine 2.94 on 10/12 -creatinine 1.8 08/2022 -creatinine baseline 1.5 since 2019 Hyperkalemia Metabolic acidosis Sepsis Possible lower extremity cellulitis Shock status-possibly sepsis Acute hypoxic respiratory failure History of COPD History of AFib History of CHF History of cirrhosis secondary to MICHAUD Full Code *PCP is Provider Unknown* Recommendations: SCr slightly better today Maintain Cabral catheter Checked urine lytes Antibiotics per ID-monitor vancomycin level Low-dose gabapentin Okay for now Steroids taper per primary team Surgical team following Avoid hypotension Avoid further IV contrast and NSAIDs No acute indications for dialysis Reason for Consult Acute kidney injury Clinical Course 10/12/2023: Admitted 10/12: Renal consult 10/13: Urine output 760 cc in last 24 hours. Off pressors. On low-rate LR 10/14: Somnolent. Cabral removed early this morning. 10/15: Cabral replaced due to continued urinary retention. New Symptoms Somnolent but responds to questions slowly General: Awake but disoriented Heart: regular rhythm, S1S2, without rub Lungs: breath sounds diminished; no wheezes or crackles; no distress at rest on O2 via NC Abdomen: soft without mass, non-tender, with bowel sounds Extremities: no clubbing or cyanosis, no edema. Redness bilateral lower extremity-more indurated redness on the left upper thigh Circulation: no central access Genitalia: Cabral present Data Vitals: 10/16/23 0307 10/16/23 0358 10/16/23 0740 10/16/23 0746 BP: 128/62 125/78 Pulse: 97 95 90 Resp: 18 18 20 Temp: 97.5 ??F (36.4 ??C) 98 ??F (36.7 ??C) SpO2: 94% 94% 97% 97% Weight: Height: Supplemental Oxygen (last filed value): O2 L/M: (S) 2 (10/16/23 0746) Temp (30hrs) Max:98 ??F (36.7 ??C) Intake/Output Summary (Last 24 hours) at 10/16/2023 0809 Last data filed at 10/16/2023 0604 Gross per 24 hour Intake 370 ml Output 2400 ml Net -2030 ml Admission weight: Weight: 111.1 kg (244 lb 14.9 oz) (10/12/23 0507) Most recent weight: Weight: 111.1 kg (245 lb) (10/14/23 0643) Recent Labs Component Name 10/16/23 0355 10/15/23 0444 10/14/23 0337 10/13/23 0346 10/12/23 1136 SODIUM 145 141 138 - 137 POTASSIUM 4.8 5.2* 4.9 - 5.3* CHLORIDE 111* 108* 105 - 107 CO2 24 - 21* BUN 88* 81* 72* - 41* CREATININE 2.72* 2.95* 2.96* - 2.82* GLUCOSE 112* 115* 137* - 173* CALCIUM 9.0 9.0 8.8 - 8.4 ALBUMIN 2.5* 2.5* 2.4* - 2.6* PHOS - 5.3* 4.8* - 3.7 - = values in this interval not displayed. Recent Labs Component Name 10/16/23 03510/15/234 10/14/23 0337 EGFR 24* 22* 21* Recent Labs Component Name 10/16/2335410/15/2344310/14/23 0337 MAGNESIUM 2.6 2.4 2.1 Recent Labs Component Name 10/16/2335410/15/234 10/14/23 0337 WBC 18.7* 25.4* 26.3* HGB 11.7* 12.1* 11.0* HCT 36.9* 39.1 35.0* PLTCOUNT 128* 113* 109* Recent Labs Component Name 10/15/2344310/14/237 10/13/23 1153 CK 440* 786* 905* MEDICATIONS FOR CURRENT ENCOUNTER: SCHEDULED MEDICATIONS: acetaminophen (Tylenol) tablet 1,000 mg, Oral, q8h albuterol-ipratropium (Duo-Neb) nebulizer solution 3 mL, Inhalation, q6h apixaban (Eliquis) tablet 5 mg, Oral, BID aspirin chew tablet 81 mg, Enteral Tube, QDAY baclofen (Lioresal) tablet 10 mg, Oral, TID cefTRIAXone (Rocephin) 2,000 mg in 0.9% NaCl IV 50 mL IVPB, Intravenous, q24h clindamycin (Cleocin) 900 mg in 50 mL D5W IVPB, Intravenous, q8h docusate sodium (Colace) capsule 100 mg, Oral, BID gabapentin (Neurontin) oral solution 300 mg, Oral, TID insulin aspart (NovoLOG) pen 0-12 Units, Subcutaneous, 4X/day - AC & HS iron sucrose (Venofer) 300 mg in 0.9% NaCl IV 285 mL IVPB, Intravenous, QDAY metoprolol tartrate IR (Lopressor) tablet 25 mg, Oral, BID pantoprazole EC (Protonix) tablet 40 mg, Oral, QDAY venlafaxine XR 24hr (Effexor XR) capsule 37.5 mg, Oral, QDAY WITH BREAKFAST [COMPLETED] furosemide (Lasix) injection 40 mg, Intravenous, Once [COMPLETED] hydrocortisone sodium succinate PF (Solu-CORTEF) injection 50 mg, Intravenous, q12h CONTINUOUS MEDICATIONS: 0.9% NaCl flush bag, Intravenous, CONTINUOUS PRN PRN MEDICATIONS: Or Or 0.9% NaCl flush bag, Intravenous, CONTINUOUS PRN dextrose 10 % IV bolus, Intravenous, PRN dextrose 10 % IV bolus, Intravenous, PRN glucagon (Glucagen) injection 1 mg, Subcutaneous, PRN glucose (Diabetic Use) oral gel, Oral, PRN ondansetron (Zofran) injection 4 mg, Intravenous, q4h PRN oxyCODONE (immediate release) (Roxicodone) tablet 10 mg, Oral, q4h PRN oxyCODONE (immediate release) (Roxicodone) tablet 20 mg, Oral, q4h PRN senna (Senokot) tablet 8.6 mg, Oral, BID PRN * Cathy Carlton RCP - 10/16/2023 7:50 AM CDT Problem: Impaired Gas Exchange Goal: Resp rate/effort will be within specified limits Description: To maintain oxygen within normal parameters. RT to monitor. Flowsheets Taken 10/16/2023 0746 by Cathy Carlton RCP SpO2: 97 % Taken 10/16/2023 0740 by Julio Hooks RN Resp: 20 Note: To maintain oxygen within normal parameters. RT to monitor. * Marcelo Palencia RCP - 10/15/2023 11:04 PM CDT Problem: Impaired Gas Exchange Goal: Resp rate/effort will be within specified limits Description: To maintain oxygen within normal parameters. RT to monitor. Outcome: Carter Cuevas continues on scheduled nebulizer tx. Lungs sound diminished this shift. Will continue to monitor and wean as able. * Siria Kaye MD - 10/15/2023 2:28 PM CDT General and Vascular Surgery Progress Note Surgical Arts Left leg cellulitis Subjective Complaints: Patient with metabolic encephalopathy. Has persistent generalized anasarca and left legredness and tenderness. He is able to flex his hip bend his knee and move his toes without significant discomfort. No open wound on left leg. Data Vitals: 10/15/23 0306 10/15/23 0412 10/15/23 0712 10/15/23 1107 BP: 148/88 138/89 147/87 Pulse: 89 95 95 96 Resp: Temp: 97.5 ??F (36.4 ??C) 97.7 ??F (36.5 ??C) 97.8 ??F (36.6 ??C) SpO2: 94% 100% 99% 92% Weight: Height: Intake/Output Summary (Last 24 hours) at 10/15/2023 1429 Last data filed at 10/15/2023 1219 Gross per 24 hour Intake 968.19 ml Output 1080 ml Net -111.81 ml Lab Recent Labs Component Name 10/15/23 04410/14/23 03310/13/23 0346 WBC 25.4* 26.3* 25.5* HGB 12.1* 11.0* 10.2* HCT 39.1 35.0* 32.9* PLTCOUNT 113* 109* 86* Recent Labs Component Name 10/15/2344310/14/23 0337 10/13/23 1153 SODIUM 141 138 139 POTASSIUM 5.2* 4.9 5.1 CHLORIDE 108* 105 105 CO2 BUN 81* 72* 60* CREATININE 2.95* 2.96* 3.01* GLUCOSE 115* 137* 131* CALCIUM 9.0 8.8 8.6 Recent Labs Component Name 10/12/23 0503 03/08/23 1349 08/10/22 1259 PT 15.6* 11.0 10.9 Recent Labs Component Name 10/12/23 0503 03/08/23 1349 08/10/22 1259 INR 1.2* 1.0 1.1 Recent Labs Component Name 10/12/23 0503 02/04/19 0737 09/10/17 0549 PTT 32.6 26.4 29.7 No results for input(s): CEA in the last 27557 hours. No results found for this or any previous visit. Medications MEDICATIONS FOR CURRENT ENCOUNTER: SCHEDULED MEDICATIONS: acetaminophen (Tylenol) tablet 1,000 mg, Oral, q8h albuterol-ipratropium (Duo-Neb) nebulizer solution 3 mL, Inhalation, q6h apixaban (Eliquis) tablet 5 mg, Oral, BID aspirin chew tablet 81 mg, Enteral Tube, QDAY baclofen (Lioresal) tablet 10 mg, Oral, TID cefTRIAXone (Rocephin) 2,000 mg in 0.9% NaCl IV 50 mL IVPB, Intravenous, q24h clindamycin (Cleocin) 900 mg in 50 mL D5W IVPB, Intravenous, q8h docusate sodium (Colace) capsule 100 mg, Oral, BID furosemide (Lasix) injection 40 mg, Intravenous, Once gabapentin (Neurontin) oral solution 300 mg, Oral, TID hydrocortisone sodium succinate PF (Solu-CORTEF) injection 50 mg, Intravenous, q12h insulin aspart (NovoLOG) pen 0-12 Units, Subcutaneous, 4X/day - AC & HS iron sucrose (Venofer) 300 mg in 0.9% NaCl IV 285 mL IVPB, Intravenous, QDAY metoprolol tartrate IR (Lopressor) tablet 25 mg, Oral, BID pantoprazole EC (Protonix) tablet 40 mg, Oral, QDAY venlafaxine XR 24hr (Effexor XR) capsule 37.5 mg, Oral, QDAY WITH BREAKFAST [COMPLETED] clindamycin (Cleocin) 900 mg in 50 mL D5W IVPB, Intravenous, q8h CONTINUOUS MEDICATIONS: 0.9% NaCl flush bag, Intravenous, CONTINUOUS PRN Physical Exam General appearance: Confused, encephalopathic, no distress Lungs: breath sounds normal and symmetric; course rales or wheezes Abdomen: Obese, soft without mass, non-tender, with normal bowel sounds Abdominal pannus edematous but no evidence of wound or tenderness or subcu emphysema. Extremities: Able to flex his left leg at hip knee and ankle without discomfort. No subcutaneous emphysema. No fluid collection. There is superficial erythema and underlying tenderness on the left thigh mostly on the medial aspect. Review of Systems General: No fatigue or weight loss Eyes: No vision changes or pain Neuro: No mental status changes or dizziness Cardiovascular: No chest pain or palpitations Pulmonary: No shortness of breath or wheezing. GI: No abdominal pain, no nausea. Musculoskeletal: No muscle pain or joint pain Skin: No rashes or texture changes Hematologic: No easy bruising or bleeding Rectal: No rectal bleeding or pain Assessment/Plan No clinical or radiologic evidence of necrotizing fasciitis. No plan for any surgery. CT scan of left lower extremity results and images reviewed. Patient has generalized anasarca and needs fluid taken off by either diuresis or renal replacement therapy. Consider CT of chest abdomen and pelvis with possible HIDA scan to evaluate other causes as well. Past Medical History: Diagnosis Date Actinic keratosis Arthritis Asthma (HCC) Atrial fibrillation, chronic (HCC) Basal cell carcinoma CAD (coronary artery disease) Clotting disorder (HCC) Colitis COPD (chronic obstructive pulmonary disease) (HCC) Diabetes (HCC) DVT (deep venous thrombosis) (HCC) Dyslipidemia Eczema GERD (gastroesophageal reflux disease) Heart attack (HCC) High blood pressure Hx of blood clots Keloid Kidney disease Lentigo maligna melanoma (HCC) MRSA (methicillin resistant staph aureus) culture positive 07/29/2017; 02/04/19; 04/29/2019 07/29/17-Disc- tissue culture MRSA; R hip; nasal swab+ Obstructive sleep apnea VALENTINA (obstructive sleep apnea) Other cirrhosis of liver (HCC) Peripheral neuropathy Psoriasis S/P PICC central line placement 02/13/2019 [facility] VAT R basilic Seizures (HCC) Squamous cell carcinoma VRE (vancomycin resistant enterococcus) culture positive 04/29/2019 rectal swab+ * Omi Fortune MD - 10/15/2023 1:59 PM CDT Internal Medicine Progress Note -Hospitalist Admit Date: 10/12/2023 4:19 AM Hospital Day: 3 Clinical Course: New Symptoms: Patient unable to communicate symptoms, but does not appear to be in any distress. Objective: Vitals: 10/15/23 0306 10/15/23 0412 10/15/23 0712 10/15/23 1107 BP: 148/88 138/89 147/87 Pulse: 89 95 95 96 Resp: 20 Temp: 97.5 ??F (36.4 ??C) 97.7 ??F (36.5 ??C) 97.8 ??F (36.6 ??C) SpO2: 94% 100% 99% 92% Weight: Height: General appearance: Intubated and ventilated Heart: normal rate Lungs: breath sounds normal and symmetric; no rales or wheezes Abdomen: soft without mass, non-tender, with normal bowel sounds Extremities: no clubbing, cyanosis or edema, chronic venous insufficiency changes on bilateral calves. Left thigh is red and tender. Intake/Output Summary (Last 24 hours) at 10/15/2023 1359 Last data filed at 10/15/2023 1219 Gross per 24 hour Intake 968.19 ml Output 1080 ml Net -111.81 ml Current Medications: MEDICATIONS FOR CURRENT ENCOUNTER: SCHEDULED MEDICATIONS: acetaminophen (Tylenol) tablet 1,000 mg, Oral, q8h albuterol-ipratropium (Duo-Neb) nebulizer solution 3 mL, Inhalation, q6h apixaban (Eliquis) tablet 5 mg, Oral, BID aspirin chew tablet 81 mg, Enteral Tube, QDAY baclofen (Lioresal) tablet 10 mg, Oral, TID cefTRIAXone (Rocephin) 2,000 mg in 0.9% NaCl IV 50 mL IVPB, Intravenous, q24h clindamycin (Cleocin) 900 mg in 50 mL D5W IVPB, Intravenous, q8h docusate sodium (Colace) capsule 100 mg, Oral, BID gabapentin (Neurontin) oral solution 300 mg, Oral, TID hydrocortisone sodium succinate PF (Solu-CORTEF) injection 50 mg, Intravenous, q12h insulin aspart (NovoLOG) pen 0-12 Units, Subcutaneous, 4X/day - AC & HS iron sucrose (Venofer) 300 mg in 0.9% NaCl IV 285 mL IVPB, Intravenous, QDAY metoprolol tartrate IR (Lopressor) tablet 25 mg, Oral, BID pantoprazole EC (Protonix) tablet 40 mg, Oral, QDAY venlafaxine XR 24hr (Effexor XR) capsule 37.5 mg, Oral, QDAY WITH BREAKFAST [COMPLETED] clindamycin (Cleocin) 900 mg in 50 mL D5W IVPB, Intravenous, q8h CONTINUOUS MEDICATIONS: 0.9% NaCl flush bag, Intravenous, CONTINUOUS PRN PRN MEDICATIONS: Or Or 0.9% NaCl flush bag, Intravenous, CONTINUOUS PRN dextrose 10 % IV bolus, Intravenous, PRN dextrose 10 % IV bolus, Intravenous, PRN glucagon (Glucagen) injection 1 mg, Subcutaneous, PRN glucose (Diabetic Use) oral gel, Oral, PRN ondansetron (Zofran) injection 4 mg, Intravenous, q4h PRN oxyCODONE (immediate release) (Roxicodone) tablet 10 mg, Oral, q4h PRN oxyCODONE (immediate release) (Roxicodone) tablet 20 mg, Oral, q4h PRN senna (Senokot) tablet 8.6 mg, Oral, BID PRN Data: Recent Labs Component Name 10/15/2344310/14/2333610/13/23 1153 SODIUM 141 138 139 POTASSIUM 5.2* 4.9 5.1 BUN 81* 72* 60* CREATININE 2.95* 2.96* 3.01* GLUCOSE 115* 137* 131* Recent Labs Component Name 10/15/234 10/14/2333610/13/23 0346 WBC 25.4* 26.3* 25.5* HGB 12.1* 11.0* 10.2* HCT 39.1 35.0* 32.9* PLTCOUNT 113* 109* 86* CT FEMUR LEFT WO CONTRAST Result Date: 10/12/2023 PROCEDURE: CT FEMUR LEFT WO CONTRAST DATE/TIME OF EXAM: 10/12/2023 10:00 AM CLINICAL INFORMATION: None relevant/not provided if blank. Indication: A41.89: Other specified sepsis (HCC) Additional History: Pain and swelling in left thigh COMPARISON: None. TECHNIQUE: CT of the left femur was performed utilizing standard protocol. CT dose reduction technique was used, including Automated Exposure Control. FINDINGS: There is a small left knee joint effusion. Severe degenerative change is seen in all 3compartments of the left knee. There is moderate edema in the skin and subcutaneous soft tissues along the medial aspect of the left thigh consistent with a moderate cellulitis. No gas is seen in the soft tissues. No inflammatory change is seen in the fascial planes between the muscles of the left thigh. There is no evidence for a drainable abscess. No swelling of the muscles in the left thigh isseen. There is a left total hip arthroplasty. No evidence for a hardware complication. IMPRESSION: There is a moderate cellulitis in the skin and subcutaneous soft tissues along the medial aspect of the left thigh. No gas is seen in the soft tissues. No drainable abscess collection is seen. No evidence for inflammatory change in the fascial planes of the left thigh. 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 > Interpreting Provider: Jose Alberto Kemp MD on 10/12/2023 11:59 AM XR CHEST 1VW PORTABLE Result Date: 10/12/2023 PROCEDURE: XR CHEST 1VW PORTABLE DATE/TIME OF EXAM: 10/12/2023 5:55 AM INDICATION: J96.00: Acute respiratory failure, unspecified whether with hypoxia or hypercapnia (HCC) COMPARISON: May 01, 2019ADDITIONAL CLINICAL INFORMATION (if provided): Ordering Provider Reason For Exam: Findings: There is an ET tube in the distal trachea less than 3 cm from the mattie. There is a right internal jugularcatheter projecting over the superior vena cava and a nasogastric tube is seen entering the upper abdomen The heart is borderline enlarged. The aorta is normal in caliber. The patient is severely rotated to the left limiting detail. There is some mild pleural and parenchymal change left base and blunting of the left costophrenic sulcus There is no confluent infiltrate .. There is no pneumothorax.There is no mass or adenopathy.. IMPRESSION: Tubes and lines in adequate position without a pneumothorax Oral and parenchymal changeat the left base slightly progressive in the interval > Interpreting Provider: Viola Parks 10/12/2023 8:23 AM Assessment and Plan Septic shock POA Left thigh cellulitis Group G Strep bacteremia Leukocytosis secondary to above Lactic acidosis secondary to above Patient transferred from outside facility in septic shock. 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 Labs significant for leukocytosis and lactic acidosis. Blood cultures at outside facility reported as GPC. Speciation pending 10/11: CT scan of the thigh shows: Moderate cellulitis in the skin and subcutaneous soft tissues along the medial aspect of the left thigh. No gas. No drainable abscess. No evidence of inflammatory change in the facial planes. 10/14: I called the surgery team for repeat evaluation. They suggested to get repeat CT. It shows progressive diffuse subcutaneous edema of the left thigh but no organized fluid collection, no soft tissue gas collection. Continue with IV ceftriaxone and clindamycin Surgery and Infectious Disease on board. Acute on chronic hypoxemic respiratory failure HFpEF COPD Patient has a history of CHF and COPD. Initially intubated for worsening respiratory status. Extubated on 10/11. Continue with breathing treatment Goal-directed medical therapy held Atrial fibrillation Restarted on beta-fe and Eliquis RADHA with CKD Likely a combination of ATN in the setting of shock and contrast induced nephropathy Monitor BMP Nephrology on board History of cirrhosis secondary to MICHAUD. Monitor LFTs Patient's Functional Baseline prior to admit: independent Discharge Planning to Next Site of Care: Other: tbd Anticipated discharge date: tbd READMISSION RISK SCORE is 16 at 1:59 PM 10/15/2023. DVT prophylaxis: heparin Full Code Omi Fortune MD 10/15/2023 1:59 PM Portions of this note may be dictated using voice recognition software. Variances in spelling and vocabulary are possible and unintentional. Not all errors are caught/corrected. Please notify the author if any discrepancies are noted or if the meaning of any statement is not clear. These grammatical oversights have no impact on the medical care provided to the patient. Time in which this note is created does not match the time of rounding/clinical exam. * Lucía Castaneda DO - 10/15/2023 11:16 AM CDT Infectious Diseases Progress Note José Miguel Keys 10/13/2023 Hospital Day 3 Subjective Delirous this morning-- moaning, unable to answer questions Afebrile but leukocytosis persists Abx Vanc 10/11- Clindamycin 10/11-10/13 Ceftriaxone 10/12- Flagyl 10/11-10/12 Cefepime 10/11 Exam BP 138/89 (BP Location: Left arm, Patient Position: Lying) Pulse 95 Temp 97.7 ??F (36.5 ??C) (Axillary) Resp 20 Ht 1.803 m (5' 10.98 ) Wt 111.1 kg (245 lb) SpO2 99% BMI 34.19 kg/m?? General: delirious and unable to answer questions Lungs: non-labored, diminished at bases CV: slightly tachy, regular Abd: soft, no guarding, bowel sounds present Ext: Left thigh area of redness and induration, tender. Redness with warmth to the lower left leg stable R IJ CVC 10/10-10/13 Data Recent Labs Component Name 10/15/2344310/14/2333610/13/23 0346 WBC 25.4* 26.3* 25.5* HGB 12.1* 11.0* 10.2* HCT 39.1 35.0* 32.9* PLTCOUNT 113* 109* 86* Recent Labs Component Name 10/15/2344310/14/2333610/13/23 1153 SODIUM 141 138 139 POTASSIUM 5.2* 4.9 5.1 CHLORIDE 108* 105 105 CO2 BUN 81* 72* 60* CREATININE 2.95* 2.96* 3.01* GLUCOSE 115* 137* 131* CALCIUM 9.0 8.8 8.6 Recent Labs Component Name 10/15/2344310/14/2333610/13/23 034 ALBUMIN 2.5* 2.4* 2.4* ALKPHOS 65 55 48 ALT 44 41 20 AST 58* 90* 61* TBIL 0.5 0.6 0.7 TPROT 7.6 7.5 7.2 Microbiology Blood culture 10/10 Dandre Group G Strep (R clinda) 10/11 ngtd Radiology 10/10 CXR: Mild interstitial edema vs senescent change 10/10 Venous Doppler LLE: No DVT 10/10 CTA Chest: Distended gallbladder, cholelithiasis. No PE 10/10 CT A/P wo: stone in gallbladder neck. L1-2 fusion. Mild peripancreatic inflammatory changes 10/11 CT LLE wo: There is a moderate cellulitis in the skin and subcutaneous soft tissues along the medial aspect of the left thigh. No gas is seen in the soft tissues. No drainable abscess collection is seen. No evidence for inflammatory change in the fascial planes of the left thigh. 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 MEDICATIONS FOR CURRENT ENCOUNTER: SCHEDULED MEDICATIONS: acetaminophen (Tylenol) tablet 1,000 mg, Oral, q8h albuterol-ipratropium (Duo-Neb) nebulizer solution 3 mL, Inhalation, q6h apixaban (Eliquis) tablet 5 mg, Oral, BID aspirin chew tablet 81 mg, Enteral Tube, QDAY baclofen (Lioresal) tablet 10 mg, Oral, TID cefTRIAXone (Rocephin) 2,000 mg in 0.9% NaCl IV 50 mL IVPB, Intravenous, q24h docusate sodium (Colace) capsule 100 mg, Oral, BID gabapentin (Neurontin) oral solution 300 mg, Oral, TID hydrocortisone sodium succinate PF (Solu-CORTEF) injection 50 mg, Intravenous, q12h insulin aspart (NovoLOG) pen 0-12 Units, Subcutaneous, 4X/day - AC & HS iron sucrose (Venofer) 300 mg in 0.9% NaCl IV 285 mL IVPB, Intravenous, QDAY metoprolol tartrate IR (Lopressor) tablet 25 mg, Oral, BID pantoprazole EC (Protonix) tablet 40 mg, Oral, QDAY venlafaxine XR 24hr (Effexor XR) capsule 37.5 mg, Oral, QDAY WITH BREAKFAST [COMPLETED] clindamycin (Cleocin) 900 mg in 50 mL D5W IVPB, Intravenous, q8h CONTINUOUS MEDICATIONS: 0.9% NaCl flush bag, Intravenous, CONTINUOUS PRN lactated ringers infusion, Intravenous, Continuous PRN MEDICATIONS: Or Or 0.9% NaCl flush bag, Intravenous, CONTINUOUS PRN dextrose 10 % IV bolus, Intravenous, PRN dextrose 10 % IV bolus, Intravenous, PRN glucagon (Glucagen) injection 1 mg, Subcutaneous, PRN glucose (Diabetic Use) oral gel, Oral, PRN ondansetron (Zofran) injection 4 mg, Intravenous, q4h PRN oxyCODONE (immediate release) (Roxicodone) tablet 10 mg, Oral, q4h PRN oxyCODONE (immediate release) (Roxicodone) tablet 20 mg, Oral, q4h PRN senna (Senokot) tablet 8.6 mg, Oral, BID PRN Assessment --Group G strep septicemia with septic shock, concern for left thigh nec fasc or Group A Strep cellulitis with myositis and Streptococcal toxic shock syndrome CK and CRP not majorly elevated, CK seems to have peaked Weaned off pressors IVIG 10/11-10/12 CT WITHOUT contrast without evidence for gas 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 [id number], on chronic suppressive doxycycline 100mg BID Afib, hx of DVT on eliquis BPH on flomax RADHA on CKD MICHAUD and cirrhosis with small lower esophageal varices on 2022 EGD, portal hypertensive gastropathy Hx of PUD with bleeding COPD Obesity, BMI 34 Plan -Continue ceftriaxone 2g dailyand clindamycin 900 mg IV q8 hours -needs surgical evaluation--close monitoring of site, if any decompensation needs debridement as part of source control, worried about extending erythema to left leg -nephrology managing RADHA D/w nursing and Dr Fortune-- patient with group G strep septicemia and shock from left thigh soft tissue infection. He has marked leukocytosis and RADHA. This constellation is seen most commonly from deepsoft tissue infection including myositis and necrotizing fasciitis, not simple cellulitis His CT is a poor study as it was done without contrast Needs repeat surgical evaluation * Mary Kay Mckinley RN - 10/15/2023 10:52 AM CDT SITUATIONAL AWARENESS NOTE PATIENT'S NAME: José Miguel Keys BIRTHDATE: 1950 CODE STATUS: Full Code PRIMARY CONCERN FOR SITUATIONAL AWARENESS: Other (Comment)ICU Downgrade OBSERVATIONS: Patient in room resting with eyes open. Patient moaning with discomfort. Primary RN & MD aware of patient condition. Patient A&O x 1 (baseline). Pain interventions implemented & patient repositioned. Patient will nod appropriately and has no signs of distress. Vital signs stable. Primary nurse will contact Critical Response Nurse before next rounding period with any immediate assistance needed for this patient. No additional recommendations at this time. Rounds: 1200 - Patient VSS. Repeat CT unremarkable, antibiotic therapy continued. Discharge planning for SNF placement. Primary nurse reports no concerns. Critical Response Team Signing off. PLAN: Continue current plan as detailed in daily progress note. Continue Critical Response Nurse rounding The patient safety concern has been resolved and this will serve as the last note. OUTCOME: Remains in current room Telemetry ESCALATION PLAN: If patient begins to clinically deteriorate or there are any significant changes please call a rapid response. Plan discussed with - nursing and hospitalist. Everyone is in agreement with the plan. 30 minutes spent on patient assessment, review of relevant data, and documentation. * Jeanmarie Phan - 10/15/2023 8:53 AM CDT Problem: Impaired Gas Exchange Goal: Resp rate/effort will be within specified limits Description: To maintain oxygen within normal parameters. RT to monitor. Note: José Miguel remains on 2 L. No complaints of SOB. Patient continues to receive breathing treatments Q 6 * Thaddeus Jorgensen MD - 10/15/2023 8:20 AM CDT Images from the original note were not included. Nephrology Progress Note Admit Date: 10/12/2023 4:19 AM Hospital Day: 3 Assessment: Acute kidney injury-ATN secondary shock status and hypotension + ELLIOTT -creatinine 2.94 on 10/12 -creatinine 1.8 08/2022 -creatinine baseline 1.5 since 2019 Hyperkalemia Metabolic acidosis Sepsis Possible lower extremity cellulitis Shock status-possibly sepsis Acute hypoxic respiratory failure History of COPD History of AFib History of CHF History of cirrhosis secondary to MICHAUD Full Code *PCP is Provider Unknown* Recommendations: SCr unchanged Monitor urine output closely Checked urine lytes Antibiotics per ID-monitor vancomycin level Low-dose gabapentin Okay for now Steroids taper per primary team Surgical team following Avoid hypotension Avoid further IV contrast and NSAIDs No acute indications for dialysis Reason for Consult Acute kidney injury Clinical Course 10/12/2023: Admitted 10/12: Renal consult 10/13: Urine output 760 cc in last 24 hours. Off pressors. On low-rate LR 10/14: Somnolent. Cabral removed early this morning. New Symptoms Somnolent but responds to questions slowly General: Lethargic Heart: regular rhythm, S1S2, without rub Lungs: breath sounds diminished; no wheezes or crackles; no distress at rest on O2 via NC Abdomen: soft without mass, non-tender, with bowel sounds Extremities: no clubbing or cyanosis, no edema. Redness bilateral lower extremity-more indurated redness on the left upper thigh Circulation: no central access Genitalia: [place] present Data Vitals: 10/15/23 0034 10/15/23 0306 10/15/23 0412 10/15/23 0712 BP: 148/90 148/88 138/89 Pulse: 85 89 95 95 Resp: 18 20 20 20 Temp: 97.5 ??F (36.4 ??C) 97.5 ??F (36.4 ??C) 97.7 ??F (36.5 ??C) SpO2: 93% 94% 100% 99% Weight: Height: Supplemental Oxygen (last filed value): O2 L/M: 4 (10/15/23 07) Temp (30hrs) Max:98.9 ??F (37.2 ??C) Intake/Output Summary (Last 24 hours) at 10/15/2023 0820 Last data filed at 10/15/2023 0300 Gross per 24 hour Intake 1208.19 ml Output 1010 ml Net 198.19 ml Admission weight: Weight: 111.1 kg (244 lb 14.9 oz) (10/12/23 0507) Most recent weight: Weight: 111.1 kg (245 lb) (10/14/23 0643) Recent Labs Component Name 10/15/23 0444 10/14/23 0337 10/13/23 1153 10/13/23 0346 10/12/23 1136 SODIUM 141 138 139 136 137 POTASSIUM 5.2* 4.9 5.1 5.9* 5.3* CHLORIDE 108* 105 105 106 107 CO2 18* 21* BUN 81* 72* 60* 58* 41* CREATININE 2.95* 2.96* 3.01* 2.94* 2.82* GLUCOSE 115* 137* 131* 117* 173* CALCIUM 9.0 8.8 8.6 8.2* 8.4 ALBUMIN 2.5* 2.4* - 2.4* 2.6* PHOS 5.3* 4.8* - - 3.7 Recent Labs Component Name 10/15/2344310/14/2333610/13/23 1153 EGFR 22* 21* 21* Recent Labs Component Name 10/15/2344310/14/2333610/13/23 0346 MAGNESIUM 2.4 2.1 1.8 Recent Labs Component Name 10/15/2344310/14/2333610/13/23 0346 WBC 25.4* 26.3* 25.5* HGB 12.1* 11.0* 10.2* HCT 39.1 35.0* 32.9* PLTCOUNT 113* 109* 86* Recent Labs Component Name 10/15/2344310/14/2333610/13/23 1153 CK 440* 786* 905* MEDICATIONS FOR CURRENT ENCOUNTER: SCHEDULED MEDICATIONS: acetaminophen (Tylenol) tablet 1,000 mg, Oral, q8h albuterol-ipratropium (Duo-Neb) nebulizer solution 3 mL, Inhalation, q6h apixaban (Eliquis) tablet 5 mg, Oral, BID aspirin chew tablet 81 mg, Enteral Tube, QDAY cefTRIAXone (Rocephin) 2,000 mg in 0.9% NaCl IV 50 mL IVPB, Intravenous, q24h docusate sodium (Colace) capsule 100 mg, Oral, BID gabapentin (Neurontin) oral solution 100 mg, Oral, AT BEDTIME hydrocortisone sodium succinate PF (Solu-CORTEF) injection 50 mg, Intravenous, q12h insulin aspart (NovoLOG) pen 0-12 Units, Subcutaneous, 4X/day - AC & HS iron sucrose (Venofer) 300 mg in 0.9% NaCl IV 285 mL IVPB, Intravenous, QDAY metoprolol tartrate IR (Lopressor) tablet 25 mg, Oral, BID pantoprazole EC (Protonix) tablet 40 mg, Oral, QDAY venlafaxine XR 24hr (Effexor XR) capsule 37.5 mg, Oral, QDAY WITH BREAKFAST [COMPLETED] clindamycin (Cleocin) 900 mg in 50 mL D5W IVPB, Intravenous, q8h CONTINUOUS MEDICATIONS: 0.9% NaCl flush bag, Intravenous, CONTINUOUS PRN lactated ringers infusion, Intravenous, Continuous PRN MEDICATIONS: Or Or 0.9% NaCl flush bag, Intravenous, CONTINUOUS PRN dextrose 10 % IV bolus, Intravenous, PRN dextrose 10 % IV bolus, Intravenous, PRN glucagon (Glucagen) injection 1 mg, Subcutaneous, PRN glucose (Diabetic Use) oral gel, Oral, PRN HYDROmorphone (Dilaudid) injection 0.2 mg, Intravenous, q3h PRN ondansetron (Zofran) injection 4 mg, Intravenous, q4h PRN senna (Senokot) tablet 8.6 mg, Oral, BID PRN * Yasmeen Aguilera RN - 10/15/2023 5:59 AM CDT Problem: Impaired Gas Exchange Goal: Resp rate/effort will be within specified limits Description: To maintain oxygen within normal parameters. RT to monitor. Outcome: Progressing Problem: Oral Intake: Inadequate oral intake Goal: Total intake will meet estimated nutrient needs Outcome: Progressing Problem: Fall Risk Goal: Fall risk and fall related injury risk are minimized (interventions related to the fall risk can be found in the flowsheet documentation) Outcome: Progressing Problem: Pain/Discomfort Goal: Patient exhibits reduced pain/discomfort as evidenced by pain scores Outcome: Progressing Problem: Sleep deprivation related to sleep apnea. Goal: Achieves restful, refreshing sleep pattern. Outcome: Progressing From icu; AOX2 pt is drowsy; wears home cpap/bpap all night; had episode of anxiety; * Yasmeen Aguilera RN - 10/15/2023 5:10 AM CDT 10/15/23 0000 Rex Scale - Adult Sensory Perception 4 Moisture 4 Activity 1 Mobility 3 Nutrition 2 Friction and Shear 2 Total Score 16 Skin assessment done; pt had redness on lower ext.(Present during admission); excoriation on inguinal and genital area- applied zinc spray; * Eula Hercules RN - 10/14/2023 10:31 PM CDT SITUATIONAL AWARENESS NOTE PATIENT'S NAME: José Miguel Keys BIRTHDATE: 1950 CODE STATUS: Full Code PRIMARY CONCERN FOR SITUATIONAL AWARENESS: Other (Comment)ICU downgrade OBSERVATIONS: José Miguel is sleeping. He has family at the bedside. Primary RN is at the bedside. José Miguel recently downgraded from the ICU. He is in no distress at this time. VSS. RN states that he has been sleepy since this afternoon. He awakens easily per RN. I have no recommendations at this time. PLAN: Continue current plan as detailed in daily progress note. Continue Critical Response Nurse rounding OUTCOME: Remains in current room ESCALATION PLAN: If patient begins to clinically deteriorate or there are any significant changes please call a rapid response. Plan discussed with - nursing and family. Everyone is in agreement with the plan. 30 minutes spent on patient assessment, review of relevant data, and documentation. * Bell Gilliam RD/SALVADOR - 10/14/2023 5:02 PM CDT Brief Synopsis: Patient is at nutrition risk but does not meet malnutrition criteria. Nutrition Plan: Current diet order: Cardiac Standard Current supplement order: ensure 1.5 tid (350 kcal 20 g protein each) Recommendations to Physician: least restrictive diet Discharge Needs: pending clinical course Nutrition Reassessment Changes in condition/Patient Summary: Attempted to follow up with pt for po intake Po poor sleepy at time of visit nursing reports poor po does drink liquids will add ensure 1.5 tid Will follow in am for tolerance and other preferences Assessment Med/Surg History and Clinical Diagnoses: Fluid and electrolyte disorder: hyperkalemia requiring further monitoring Thrombocytopenia Thrombocytopenia requiring further monitoring Hypoalbuminemia requiring further monitoring Chronic kidney disease: Chronic Kidney Disease, Unspecified Cardiac arrhythmia: Atrial fibrillation, unspecified Congestive Heart Failure Shock: Severe sepsis with shock Obesity Patient receiving mechanical ventilation Weight Review Height: 180.3 cm (5' 10.98 ) Last Weight: 111.1 kg (245 lb) (10/14/23 0643) Last Weight Method : Bed scale (10/14/23 0643) [place] Body Weight IBW/lb (Calculated) Male: 171.904 BMI: Body mass index is 34.19 kg/m??. BMI Range: Obese Class 1 Weight Assessment: reviewed Wt Readings from Last 10 Encounters: 10/14/23 111.1 kg (245 lb) 05/12/23 111.1 kg (245 lb) 03/21/23 110.7 kg (244 lb) 10/07/22 120.7 kg (266 lb) 08/23/22 120.7 kg (266 lb) 08/23/22 120.7 kg (266 lb) 02/23/22 120.2 kg (265 lb) 08/17/21 121.1 kg (267 lb) 12/30/20 114.8 kg (253 lb) 08/26/20 114.9 kg (253 lb 6.4 oz) Patient Vitals for the past 336 hrs: Weight Weight Method 10/14/23 0643 111.1 kg (245 lb) Bed scale 10/12/23 0507 111.1 kg (244 lb 14.9 oz) -- PO INTAKE Current diet order: Cardiac Standard Food Allergies: Other (Comments) (all Peppers) Last % Meal Taken: 10 % (10/14/23 1200) Current supplement order: ensure 1.5 tid (350 kcal 20 g protein each) Supplement(s) Consumed- Last 48 hours None PO Intake Assessment: poor GI Concerns: (10/12 + bm) Chewing/Swallowing: None Skin/Wound: BLE reddened tender Last Skin Condition: Swollen;Rash (10/14/23 0400) Pain affecting intake: No Estimated Needs: KCAL: [id number] based on 11-14 kcal/kg actual wt Protein (g): 94 based on 1.2 g/kg ibw Fluid (ml): 1 ml/kcal Needs based on: Kcal/kg- (Comment) Recommended Access Route: TF Labs: Recent Labs Component Name 10/14/23 0337 SODIUM 138 POTASSIUM 4.9 CHLORIDE 105 CO2 24 BUN 72* CREATININE 2.96* GLUCOSE 137* CALCIUM 8.8 ALBUMIN 2.4* ALKPHOS 55 ALT 41 AST 90* TBIL 0.6 TPROT 7.5 EGFR 21* Recent Labs Component Name 10/14/23 0337 10/12/23 1136 10/12/23 0503 PHOS 4.8* 3.7 3.1 Recent Labs Component Name 10/13/23 0346 02/03/19 0106 07/14/17 2212 HGBA1C 6.5* 5.8 6.3 Patient Vitals for the past 30 hrs: Glucose Bedside (mg/dL) 10/14/23 1145 141 mg/dL 10/14/23 0656 150 mg/dL 10/13/23 2041 129 mg/dL 10/13/23 1605 160 mg/dL 10/13/23 1144 144 mg/dL PERTINENT MEDICATIONS FOR CURRENT ENCOUNTER: SCHEDULED MEDICATIONS: acetaminophen (Tylenol) tablet 1,000 mg, Oral, q8h albuterol-ipratropium (Duo-Neb) nebulizer solution 3 mL, Inhalation, q6h apixaban (Eliquis) tablet 5 mg, Oral, BID aspirin chew tablet 81 mg, Enteral Tube, QDAY cefTRIAXone (Rocephin) 2,000 mg in 0.9% NaCl IV 50 mL IVPB, Intravenous, q24h clindamycin (Cleocin) 900 mg in 50 mL D5W IVPB, Intravenous, q8h docusate sodium (Colace) capsule 100 mg, Oral, BID DULoxetine (Cymbalta) capsule 30 mg, Oral, QDAY gabapentin (Neurontin) oral solution 100 mg, Oral, AT BEDTIME hydrocortisone sodium succinate PF (Solu-CORTEF) injection 50 mg, Intravenous, q12h insulin aspart (NovoLOG) pen 0-12 Units, Subcutaneous, 4X/day - AC & HS iron sucrose (Venofer) 300 mg in 0.9% NaCl IV 285 mL IVPB, Intravenous, QDAY metoprolol tartrate IR (Lopressor) tablet 25 mg, Oral, BID pantoprazole EC (Protonix) tablet 40 mg, Oral, QDAY [COMPLETED] vancomycin (Vancocin) 1,750 mg in 535 mL IVPB, Intravenous, Once CONTINUOUS MEDICATIONS: 0.9% NaCl flush bag, Intravenous, CONTINUOUS PRN lactated ringers infusion, Intravenous, Continuous ~~~~~~~~~~~~~~~~~~~~~~~~~~~~~~~~ Nutrition Diagnostic Statement: Inadequate oral intake related to:: decreased ability to consume ortolerate food and/or fluids due to illness as evidenced by:: oral intake insufficient to meet estimated requirements Nutrition Intervention: Meals and snacks:;Collaboration with other providers Education Provided: Not appropriate (10/12/23 1100) Recommendation/Plan: Nutrition recommendation: agree with current nutrition order Monitoring: Po intake Ons intake Labs Skin integrity Plan of care Evaluation: Nutrition Goal: Intake will be improved to 75% or greater of meals/snacks Nutrition Goal Timeframe: Throughout stay * Omi Fortune MD - 10/14/2023 3:44 PM CDT Internal Medicine Progress Note -Hospitalist Admit Date: 10/12/2023 4:19 AM Hospital Day: 2 Clinical Course: New Symptoms: Patient unable to communicate symptoms, but does not appear to be in any distress. Objective: Vitals: 10/14/23 0953 10/14/23 0954 10/14/23 1200 10/14/23 1418 BP: 134/82 132/85 124/80 Pulse: 94 85 94 Resp: 20 16 Temp: SpO2: 94% 94% 94% Weight: Height: General appearance: Intubated and ventilated Heart: normal rate Lungs: breath sounds normal and symmetric; no rales or wheezes Abdomen: soft without mass, non-tender, with normal bowel sounds Extremities: no clubbing, cyanosis or edema, chronic venous insufficiency changes on bilateral calves. Left thigh is red and tender. Intake/Output Summary (Last 24 hours) at 10/14/2023 1544 Last data filed at 10/14/2023 1200 Gross per 24 hour Intake 1665.19 ml Output 395 ml Net 1270.19 ml Current Medications: MEDICATIONS FOR CURRENT ENCOUNTER: SCHEDULED MEDICATIONS: acetaminophen (Tylenol) tablet 1,000 mg, Oral, q8h albuterol-ipratropium (Duo-Neb) nebulizer solution 3 mL, Inhalation, q6h aspirin chew tablet 81 mg, Enteral Tube, QDAY cefTRIAXone (Rocephin) 2,000 mg in 0.9% NaCl IV 50 mL IVPB, Intravenous, q24h clindamycin (Cleocin) 900 mg in 50 mL D5W IVPB, Intravenous, q8h docusate sodium (Colace) capsule 100 mg, Oral, BID DULoxetine (Cymbalta) capsule 30 mg, Oral, QDAY gabapentin (Neurontin) oral solution 100 mg, Oral, AT BEDTIME heparin injection 5,000 Units, Subcutaneous, q8h hydrocortisone sodium succinate PF (Solu-CORTEF) injection 50 mg, Intravenous, q12h insulin aspart (NovoLOG) pen 0-12 Units, Subcutaneous, 4X/day - AC & HS iron sucrose (Venofer) 300 mg in 0.9% NaCl IV 285 mL IVPB, Intravenous, QDAY metoprolol tartrate IR (Lopressor) tablet 25 mg, Oral, BID pantoprazole EC (Protonix) tablet 40 mg, Oral, QDAY [COMPLETED] vancomycin (Vancocin) 1,750 mg in 535 mL IVPB, Intravenous, Once CONTINUOUS MEDICATIONS: 0.9% NaCl flush bag, Intravenous, CONTINUOUS PRN lactated ringers infusion, Intravenous, Continuous PRN MEDICATIONS: Or Or 0.9% NaCl flush bag, Intravenous, CONTINUOUS PRN dextrose 10 % IV bolus, Intravenous, PRN dextrose 10 % IV bolus, Intravenous, PRN glucagon (Glucagen) injection 1 mg, Subcutaneous, PRN glucose (Diabetic Use) oral gel, Oral, PRN HYDROmorphone (Dilaudid) injection 0.2 mg, Intravenous, q3h PRN ondansetron (Zofran) injection 4 mg, Intravenous, q4h PRN senna (Senokot) tablet 8.6 mg, Oral, BID PRN Data: Recent Labs Component Name 10/14/23 0337 10/13/23 1153 10/13/23 0346 SODIUM 138 139 136 POTASSIUM 4.9 5.1 5.9* BUN 72* 60* 58* CREATININE 2.96* 3.01* 2.94* GLUCOSE 137* 131* 117* Recent Labs Component Name 10/14/23 0337 10/13/23 0346 10/12/23 0503 WBC 26.3* 25.5* 36.4* HGB 11.0* 10.2* 13.0* HCT 35.0* 32.9* 43.1 PLTCOUNT 109* 86* 124* 113* CT FEMUR LEFT WO CONTRAST Result Date: 10/12/2023 PROCEDURE: CT FEMUR LEFT WO CONTRAST DATE/TIME OF EXAM: 10/12/2023 10:00 AM CLINICAL INFORMATION: None relevant/not provided if blank. Indication: A41.89: Other specified sepsis (HCC) Additional History: Pain and swelling in left thigh COMPARISON: None. TECHNIQUE: CT of the left femur was performed utilizing standard protocol. CT dose reduction technique was used, including Automated Exposure Control. FINDINGS: There is a small left knee joint effusion. Severe degenerative change is seen in all 3compartments of the left knee. There is moderate edema in the skin and subcutaneous soft tissues along the medial aspect of the left thigh consistent with a moderate cellulitis. No gas is seen in the soft tissues. No inflammatory change is seen in the fascial planes between the muscles of the left thigh. There is no evidence for a drainable abscess. No swelling of the muscles in the left thigh isseen. There is a left total hip arthroplasty. No evidence for a hardware complication. IMPRESSION: There is a moderate cellulitis in the skin and subcutaneous soft tissues along the medial aspect of the left thigh. No gas is seen in the soft tissues. No drainable abscess collection is seen. No evidence for inflammatory change in the fascial planes of the left thigh. 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 > Interpreting Provider: Jose Alberto Kemp MD on 10/12/2023 11:59 AM XR CHEST 1VW PORTABLE Result Date: 10/12/2023 PROCEDURE: XR CHEST 1VW PORTABLE DATE/TIME OF EXAM: 10/12/2023 5:55 AM INDICATION: J96.00: Acute respiratory failure, unspecified whether with hypoxia or hypercapnia (HCC) COMPARISON: May 01, 2019ADDITIONAL CLINICAL INFORMATION (if provided): Ordering Provider Reason For Exam: Findings: There is an ET tube in the distal trachea less than 3 cm from the mattie. There is a right internal jugularcatheter projecting over the superior vena cava and a nasogastric tube is seen entering the upper abdomen The heart is borderline enlarged. The aorta is normal in caliber. The patient is severely rotated to the left limiting detail. There is some mild pleural and parenchymal change left base and blunting of the left costophrenic sulcus There is no confluent infiltrate .. There is no pneumothorax.There is no mass or adenopathy.. IMPRESSION: Tubes and lines in adequate position without a pneumothorax Oral and parenchymal changeat the left base slightly progressive in the interval > Interpreting Provider: Viola Parks 10/12/2023 8:23 AM Assessment and Plan Septic shock POA Left thigh cellulitis Group G Strep bacteremia Leukocytosis secondary to above Lactic acidosis secondary to above Patient transferred from outside facility in septic shock. 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 Labs significant for leukocytosis and lactic acidosis. Blood cultures at outside facility reported as GPC. Speciation pending CT scan of the thigh shows: Moderate cellulitis in the skin and subcutaneous soft tissues along themedial aspect of the left thigh. No gas. No drainable abscess. No evidence of inflammatory change in the facial planes. Continue with IV ceftriaxone Surgery and Infectious Disease on board. Acute on chronic hypoxemic respiratory failure HFpEF COPD Patient has a history of CHF and COPD. Initially intubated for worsening respiratory status. Extubated on 10/11. Continue with breathing treatment Goal-directed medical therapy held Atrial fibrillation Restarted on beta-fe and Eliquis RADHA with CKD Likely a combination of ATN in the setting of shock and contrast induced nephropathy Monitor BMP Nephrology on board History of cirrhosis secondary to MICHAUD. Monitor LFTs Patient's Functional Baseline prior to admit: independent Discharge Planning to Next Site of Care: Other: tbd Anticipated discharge date: tbd READMISSION RISK SCORE is 16 at 3:44 PM 10/14/2023. DVT prophylaxis: heparin Full Code Omi Fortune MD 10/14/2023 3:44 PM Portions of this note may be dictated using voice recognition software. Variances in spelling and vocabulary are possible and unintentional. Not all errors are caught/corrected. Please notify the author if any discrepancies are noted or if the meaning of any statement is not clear. These grammatical oversights have no impact on the medical care provided to the patient. Time in which this note is created does not match the time of rounding/clinical exam. * Rebecca Perez RN - 10/14/2023 12:38 PM CDT Care Coordination Progress Note Anticipated level of care at discharge: Care Home - Skilled Facility, Home Health Care Comment: see progress sect for all snf referrals made: Anticipated level of care provider: None: Anticipated Discharge Date: 10/17/23: Discharge Plan: Patient remains in ICU. Here from home where he was living with his . has requested [facility] in [place], [place]. SW following to assist with discharge. Orientation Level: Oriented to Person;Oriented to Place;Oriented to Time: Family Support (Name and Phone): Extended Emergency Contact Information Primary Emergency Contact: Trinity Keys Address: [address] [place] [address] [place] [address] [facility] Mobile Relation: Spouse City Manager needed? No Transportation at Discharge: Ambulance vs family READMISSION RISK SCORE is 16 at 12:38 PM 10/14/2023.: Name: Rebecca Perez RN [id number] * Kalia Berry MD - 10/14/2023 11:56 AM CDT Images from the original note were not included. Nephrology Progress Note Admit Date: 10/12/2023 4:19 AM Hospital Day: 2 Assessment: Acute kidney injury-ATN secondary shock status and hypotension + ELLIOTT -creatinine 2.94 on 10/12 -creatinine 1.8 08/2022 -creatinine baseline 1.5 since 2019 Hyperkalemia Metabolic acidosis Sepsis Possible lower extremity cellulitis Shock status-possibly sepsis Acute hypoxic respiratory failure History of COPD History of AFib History of CHF History of cirrhosis secondary to MICHAUD Full Code *PCP is Provider Unknown* Recommendations: Serum creatinine not we worse than admission Potassium improving Acidosis improved Continue gentle IVF with LR-monitor volume status closely Monitor urine output closely Trend CK Checked urine lytes Antibiotics per ID-monitor vancomycin level Low-dose gabapentin Okay for now Steroids taper per primary team Surgical team following Avoid hypotension Avoid further IV contrast and NSAIDs Renal panel this afternoon and in the morning No acute indication for dialysis yet unless his hyperkalemia was resistant to medical management and became anuric Dr. Jorgensen is on service over the weekend Reason for Consult Acute kidney injury Clinical Course 10/12/2023: Admitted 10/12: Renal consult 10/13: Urine output 760 cc in last 24 hours. Off pressors. On low-rate LR New Symptoms Patient denies nausea, vomiting, fevers, chills, chest pain, shortness of breath. General: awake, cooperative Heart: regular rhythm, S1S2, without rub Lungs: breath sounds diminished; no wheezes or crackles; no distress at rest on CPAP this afternoon Abdomen: soft without mass, non-tender, with bowel sounds Extremities: no clubbing or cyanosis, no edema. Redness bilateral lower extremity-more indurated redness on the left upper thigh Circulation: no central access Genitalia: Cabral present Data Vitals: 10/14/23 0800 10/14/23 0807 10/14/23 0953 10/14/23 0954 BP: 137/97 134/82 132/85 Pulse: 104 95 94 Resp: 15 16 Temp: 98.3 ??F (36.8 ??C) SpO2: 95% 97% 94% Weight: Height: Supplemental Oxygen (last filed value): O2 L/M: 4 (10/14/23 09) Temp (30hrs) Max:99.3 ??F (37.4 ??C) Intake/Output Summary (Last 24 hours) at 10/14/2023 1350 Last data filed at 10/14/2023 0800 Gross per 24 hour Intake 3048.58 ml Output 455 ml Net 2593.58 ml Admission weight: Weight: 111.1 kg (244 lb 14.9 oz) (10/12/23 050) Most recent weight: Weight: 111.1 kg (245 lb) (10/14/23 0643) Recent Labs Component Name 10/14/23 0337 10/13/23 1153 10/13/23 0346 10/12/23 1136 10/12/23 0503 SODIUM 138 139 136 137 139 POTASSIUM 4.9 5.1 5.9* 5.3* 5.4* CHLORIDE 105 105 106 107 108* CO2 18* 21* 22 BUN 72* 60* 58* 41* 38* CREATININE 2.96* 3.01* 2.94* 2.82* 2.70* GLUCOSE 137* 131* 117* 173* 140* CALCIUM 8.8 8.6 8.2* 8.4 8.9 ALBUMIN 2.4* - 2.4* 2.6* 3.0* PHOS 4.8* - - 3.7 3.1 Recent Labs Component Name 10/14/2333610/13/23 1153 10/13/23 0346 EGFR 21* 21* 22* Recent Labs Component Name 10/14/2333610/13/23 0346 10/12/23 0503 MAGNESIUM 2.1 1.8 1.6 Recent Labs Component Name 10/14/23 03310/13/23 0346 10/12/23 0503 WBC 26.3* 25.5* 36.4* HGB 11.0* 10.2* 13.0* HCT 35.0* 32.9* 43.1 PLTCOUNT 109* 86* 124* 113* MEDICATIONS FOR CURRENT ENCOUNTER: SCHEDULED MEDICATIONS: acetaminophen (Tylenol) tablet 1,000 mg, Oral, q8h albuterol-ipratropium (Duo-Neb) nebulizer solution 3 mL, Inhalation, q6h aspirin chew tablet 81 mg, Enteral Tube, QDAY cefTRIAXone (Rocephin) 2,000 mg in 0.9% NaCl IV 50 mL IVPB, Intravenous, q24h clindamycin (Cleocin) 900 mg in 50 mL D5W IVPB, Intravenous, q8h docusate sodium (Colace) capsule 100 mg, Oral, BID DULoxetine (Cymbalta) capsule 30 mg, Oral, QDAY gabapentin (Neurontin) oral solution 100 mg, Oral, AT BEDTIME heparin injection 5,000 Units, Subcutaneous, q8h hydrocortisone sodium succinate PF (Solu-CORTEF) injection 50 mg, Intravenous, q12h insulin aspart (NovoLOG) pen 0-12 Units, Subcutaneous, 4X/day - AC & HS iron sucrose (Venofer) 300 mg in 0.9% NaCl IV 285 mL IVPB, Intravenous, QDAY metoprolol tartrate IR (Lopressor) tablet 25 mg, Oral, BID pantoprazole EC (Protonix) tablet 40 mg, Oral, QDAY vancomycin (Vancocin) IV dose per pharmacy, Does not apply, DIRECTED [COMPLETED] vancomycin (Vancocin) 1,750 mg in 535 mL IVPB, Intravenous, Once CONTINUOUS MEDICATIONS: 0.9% NaCl flush bag, Intravenous, CONTINUOUS PRN lactated ringers infusion, Intravenous, Continuous PRN MEDICATIONS: Or Or 0.9% NaCl flush bag, Intravenous, CONTINUOUS PRN dextrose 10 % IV bolus, Intravenous, PRN dextrose 10 % IV bolus, Intravenous, PRN glucagon (Glucagen) injection 1 mg, Subcutaneous, PRN glucose (Diabetic Use) oral gel, Oral, PRN HYDROmorphone (Dilaudid) injection 0.2 mg, Intravenous, q3h PRN ondansetron (Zofran) injection 4 mg, Intravenous, q4h PRN senna (Senokot) tablet 8.6 mg, Oral, BID PRN * Geraldine Gonzalez, OT - 10/14/2023 10:38 AM CDT Occupational Therapy Initial Evaluation Orders received. Chart reviewed for history of presenting illness, diagnosis, and medical history. Nursing consented for OT. Explained purpose of OT and patient consented to participate in therapy. Discharge Recommendation: Discharge OT Discharge Recommendations: Other: (TBD Pending hospital course and progression in therapy) Recommended Transportation Method: To be Determined AM-PAC Basic mobility score for this patient is Daily Activity Raw Score:: 7 PPE worn by staff: PPE worn by staff: gloves;mask - procedural Pt was admitted for SOB, Sepsis, Cellulitis PMH per H&P includes but not limited to the following: GERD, COPD, HTN, MRSA, AFib Precautions: Safety / Falls / Cognition/ Home Bipap SUBJECTIVE: Consent for therapy I've been 52 years Psychosocial: Patient Behaviors: Cooperative Pt's goal for therapy: ADL's, Self Care Occupational Profile/PLOF: Type of Residence: Private Residence Lives with:: Spouse Home Structure: Two Story Steps to Enter: 6 Handrails: Indoor;Outdoor Ramp: Yes Primary Bathroom: Second Floor Bathroom : Tub/Shower Combo Equipment at Home: Commode-Bedside;Walker-2 Wheeled;Walker-4 Wheeled with Seat;Wheelchair-Standard;Operating Room Scheduler;Dressing Stick;Sock Aid Mobility: Ambulate-In Home ;With Assistive Device Fallen Within 6 Mos: (unable to obtain) Have Help at Home?: Yes, there is help at home now How often is assistance provided?: PRN from spouse for BADLs, spouse completing all IADLs Level of Help Sufficient?: Other (Comment) (TBD) Oxygen at Home: (uses bipap at night, reports using oxygen during day but unable to identify how much) Who manages medications?: spouse Vision: No impairment Hearing Exceptions: No Hearing Aid Cognition: Orientation Level: Oriented to Person;Oriented to Place;Oriented to Time Level of Consciousness-Adult: Drowsy Cognition: Follows one step commands;Follows Commands-inconsistent;Attention/concentration-decreased;Judgement- decreased;Safety awareness-decreased;Processing-delayed Functional Level of Impairment: Pt reported being independent with dressing and mobility at home, assists with bathing and IADLs. Pain Assessment: Pain Location #1 Pain Scale/Observation: Numeric (0-10) Pain Rating Score #1: 0 RUE Assessment: AROM - Right Upper Extremity: (general decreased ROM) Strength - Right Upper Extremity: (generalized weakness) LUE Assessment: AROM - Left Upper Extremity: (general decreased ROM) Strength - Left Upper Extremity: (generalized weakness) Basic ADL's: (Through clinical assessment, observation and professional judgement) Feeding: Moderate Assistance (anticipated) Oral Facial Hygiene: Total Assistance Bathing: Total Assistance Upper Body Dressing: Total Assistance Lower Body Dressing: Total Assistance Toileting: Total Assistance Functional Mobility: Bed Mobility: Rolling: Maximal Assistance to Right;Maximal Assistance to Left Supine to Sit: Moderate Assistance Sit to Supine: Maximum Assistance;X 2 Balance: Sitting - Static: Fair Vitals: 10/14/23 0953 10/14/23 0954 Activity Tolerance Activity Tolerance Requires rest breaks -- SpO2 94 % -- Pulse 94 (up to 107 with sitting EOB) -- BP 134/82 (supine) 132/85 (sitting EOB) MAP 100 98 ASSESSMENT: Pt found supine in bed. He is drowsy on home BiPap. He is agreeable to participate. Patient works on supine to sit with mod A of 1 and sits EOB with fair tolerance, reports lightheadedness with sitting, see vitals monitored throughout session. He tolerates sitting EOB for 3 minutes SBA-CGA for balance. He then requests to transfer back to supine. He was assisted back to bed, all needs in reach. At the end of the session, the patient was comfortable and left with all needs in reach. Overall, thepatient's ability to participate in self- care tasks and functional mobility at baseline level of function is decreased. All questions and concerns addressed prior to OT departure. All lines, monitors, IV's, equipment in place and intact pre and post visit. RN notified of patient's performance/location end of session. Educated patient with benefits of additional OT services following DC from acute care. Problem list: Decreased strength, decreased endurance, decreased balance, impaired functional mobility, impaired safety awareness Functional limitation: Decreased independence with transfers; decreased ability to perform ADLs, decreased safety with functional mobility. Rationale for therapy: Patient will benefit from OT to address the above issues. Patient will be seen for: ADL retraining, functional transfers, balance, endurance and strengthening exercises. Refer to Plan of Care for OT goals. Refer to filed flow sheet for further details. RECOMMENDATIONS/PLAN: Continue per OT POC. Progress patient's functional activity tolerance & participation for self-care tasks to increase safety and independence with ADL and IADLS upon discharge. Discharge Recommendation: Discharge OT Discharge Recommendations: Other: (TBD Pending hospital course and progression in therapy) Recommended Transportation Method: To be Determined If this is the last Occupational Therapy visit, this serves as the discharge summary. OT x [phone] * Paz Peterson, PT - 10/14/2023 10:23 AM CDT Physical Therapy ICU Evaluation Orders received. Chart reviewed for diagnosis and medical systems review. Here d/t L LE(thigh) cellulitis and sepsis. PMH sig for afib, COPD, MICHAUD, cirrhosis. RN consented for PT. Explained purpose of PT and patient consented to participate in therapy. RECOMMENDATIONS/PLAN: PT for gen strengthening, bed mob, transfers, gait and activity tolerance. PT Discharge Recommendations: (TBD pending pt progress) Recommended Transportation Method: To be Determined PPE worn by staff: gloves AM-PAC Basic mobility score for this patient is Mobility Raw Score:: 8 Precautions: Precautions Other Precautions: fall SUBJECTIVE:Subjective: consents Patient's Primary Concern: dizzy/nauseous when sitting EOB PLOF: Type of Residence: Private Residence Lives with:: Spouse Home Structure: Two Story Steps to Enter: 6 Bathroom : Tub/Shower Combo Equipment at Home: Commode-Bedside;Walker-2 Wheeled;Walker-4 Wheeled with Seat;Wheelchair-Standard;Operating Room Scheduler;Dressing Stick;Sock Aid Mobility: Ambulate-In Home ;With Assistive Device Fallen Within 6 Mos: (unable to obtain) Prior Level of Function Mobility: Ambulate-In Home ;With Assistive Device Fallen Within 6 Mos: (unable to obtain) Have Help at Home?: Yes, there is help at home now Who assists you at home?: Friends/Family How often is assistance provided?: PRN from spouse for BADLs, spouse completing all IADLs Oxygen at Home: (uses bipap at night) Activity at Home: Sedentary;Driving Vision: No impairment Hearing Exceptions: No Hearing Aid Who manages medications?: spouse Have Help at Home?: Yes, there is help at home now How often is assistance provided?: PRN from spouse for BADLs, spouse completing all IADLs Activity at Home: Sedentary;Driving Who manages medications?: spouse Hearing Exceptions: No Hearing Aid Pain Assessment: Pain Location #1 Pain Scale/Observation: Numeric (0-10) Pain Rating Score #1: 0 Sedation Level #1: 3-Frequently Drowsy, arousable, drifts off to sleep during conversation OBJECTIVE: Cognition: Orientation Level: Oriented to Person;Oriented to Place;Oriented to Time Cognition: Follows one step commands;Attention/concentration-decreased;Processing-delayed Level of Consciousness-Adult: Alert Participation: Compliant ROM and Strength: Sensation: Tone: Posture: Sitting Posture: Good Vertical Alignment Standing Posture: (unable to stand today/too drowsy) Balance: Sitting - Static: Fair Sitting - Dynamic: Not tested Bed Mobility: Rolling: Maximal Assistance to Right;Maximal Assistance to Left Supine to Sit: Moderate Assistance Sit to Supine: Maximum Assistance;X 2 Transfers: Sit to Stand: Activity Does Not Occur (too drowsy/nauseous to attempt) Bed to Chair: Activity Does Not Occur Mobility: Distance Ambulated (ft): 0 FEET Ambulation: Level of Assistance: Activity Does Not Occur Activity Tolerance: Activity Tolerance: Requires rest breaks Vital signs: BP taken on UE Before mobility During mobility After mobility BP 129/83 HR (bpm) RR (breaths/min) SpO2 (%) LPM O2 source Position Notes from Vital Signs: BP stayed within same range during therapy with pt sitting EOB. He did c/o mild dizziness sitting up. ASSESSMENT: Pt in bed and consents to work with therapy. He was wearing his home bipap maching and pt allowed to continue wearing during therapy evaluation. He was answering PLOF questions, but was also somewhat drowsy and difficult to understand and speaking softly through the bipap mask. Was mod assist for supine to sitting and max x 2 to return to supine post session. He was c/o some nausea and dizziness when sitting EOB. Sat EOB with min assist x 5 min or less. C/o feeling min dizzy and minnauseous. Was max assist to roll side to side to reposition bed linens as pt had returned to supinepost session. Unable to attempt standing or transfer to chair today as pt not feeling well enough to try and was also somewhat drowsy, etc. Call light and phone in reach with bed alarm activated. All lines, monitors, IV's, equipment in place and intact pre and post visit. No, Manager Banking, present to assist throughout the session. RN, Luis, notified of patient's performance/location end of session. Education Provided: Pt educated in PT plan of care, fall precautions, and benefits of participatingin out of bed activity. Problem list: Decreased strength, decreased ROM, decreased endurance, decreased balance, impaired functional mobility, decreased coordination, impaired safety awareness, cognitive impairment, impaired cardiopulmonary function, decreased knowledge of condition, decreased pain tolerance, need for family/caregiver training Functional limitation: Decreased independence with ambulation/transfers; decreased safety with functional mobility. Rationale for therapy: Patient will benefit from PT to address the above issues. Patient will be seen for:strengthening, functional transfers, balance, endurance, exercise. Refer to Plan of Care for PT goals. See Filed Flowsheet PT eval for further details. RECOMMENDATIONS/PLAN: Pt has experienced a significant decline from PLOF and would benefit from PT to maximize functional mobility/transfer independence and safety. PT will continue to follow during the acute stay. Progress as tolerated. If this is the last Physical Therapy visit, this serves as the discharge summary. [id number] * Aneta Campbell, DO - 10/14/2023 9:37 AM CDT Infectious Diseases Progress Note José Miguel Keys 10/13/2023 Hospital Day 2 Subjective Afebrile, WBC stable Leg still sore, not any better Had some nausea, no fevers, chills Abx Vanc 10/11- Clindamycin 10/11-10/13 Ceftriaxone 10/12- Flagyl 10/11-10/12 Cefepime 10/11 Exam BP 129/83 Pulse 95 Temp 98.9 ??F (37.2 ??C) (Axillary) Resp 16 Ht 1.803 m (5' 10.98 ) Wt 111.1 kg (245 lb) SpO2 97% BMI 34.19 kg/m?? General: NAD Neuro: Alert Lungs: non-labored, diminished at bases CV: slightly tachy, regular Abd: soft, no guarding, bowel sounds present Ext: Left thigh area of redness and firmness stable, does not have woody texture, but still very tender. Redness with warmth to the lower left leg stable from yesterday but worse from admit R IJ CVC 10/10-10/13 Data Recent Labs Component Name 10/14/23 0337 10/13/23 0346 10/12/23 0503 WBC 26.3* 25.5* 36.4* HGB 11.0* 10.2* 13.0* HCT 35.0* 32.9* 43.1 PLTCOUNT 109* 86* 124* 113* Recent Labs Component Name 10/14/23 0337 10/13/23 1153 10/13/23 0346 SODIUM 138 139 136 POTASSIUM 4.9 5.1 5.9* CHLORIDE 105 105 106 CO2 24 24 18* BUN 72* 60* 58* CREATININE 2.96* 3.01* 2.94* GLUCOSE 137* 131* 117* CALCIUM 8.8 8.6 8.2* Recent Labs Component Name 10/14/23 0337 10/13/23 0346 10/12/23 1136 10/12/23 0503 ALBUMIN 2.4* 2.4* 2.6* 3.0* ALKPHOS 55 48 - 64 ALT 41 20 - 17 AST 90* 61* - 24 TBIL 0.6 0.7 - 1.6* TPROT 7.5 7.2 - 6.7 Microbiology Blood culture 10/10 Dandre Group G Strep (R clinda) 10/11 ngtd Radiology 10/10 CXR: Mild interstitial edema vs senescent change 10/10 Venous Doppler LLE: No DVT 10/10 CTA Chest: Distended gallbladder, cholelithiasis. No PE 10/10 CT A/P wo: stone in gallbladder neck. L1-2 fusion. Mild peripancreatic inflammatory changes 10/11 CT LLE wo: There is a moderate cellulitis in the skin and subcutaneous soft tissues along the medial aspect of the left thigh. No gas is seen in the soft tissues. No drainable abscess collection is seen. No evidence for inflammatory change in the fascial planes of the left thigh. 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 MEDICATIONS FOR CURRENT ENCOUNTER: SCHEDULED MEDICATIONS: albuterol-ipratropium (Duo-Neb) nebulizer solution 3 mL, Inhalation, q6h aspirin chew tablet 81 mg, Enteral Tube, QDAY cefTRIAXone (Rocephin) 2,000 mg in 0.9% NaCl IV 50 mL IVPB, Intravenous, q24h clindamycin (Cleocin) 900 mg in 50 mL D5W IVPB, Intravenous, q8h docusate sodium (Colace) capsule 100 mg, Oral, BID DULoxetine (Cymbalta) capsule 30 mg, Oral, QDAY gabapentin (Neurontin) oral solution 100 mg, Oral, AT BEDTIME heparin injection 5,000 Units, Subcutaneous, q8h hydrocortisone sodium succinate PF (Solu-CORTEF) injection 50 mg, Intravenous, q12h insulin aspart (NovoLOG) pen 0-12 Units, Subcutaneous, 4X/day - AC & HS iron sucrose (Venofer) 300 mg in 0.9% NaCl IV 285 mL IVPB, Intravenous, QDAY metoprolol tartrate IR (Lopressor) tablet 25 mg, Oral, BID pantoprazole EC (Protonix) tablet 40 mg, Oral, QDAY vancomycin (Vancocin) IV dose per pharmacy, Does not apply, DIRECTED [COMPLETED] sodium bicarbonate 8.4 % injection 100 mEq, Intravenous, Once [COMPLETED] vancomycin (Vancocin) 1,750 mg in 535 mL IVPB, Intravenous, Once CONTINUOUS MEDICATIONS: 0.9% NaCl flush bag, Intravenous, CONTINUOUS PRN lactated ringers infusion, Intravenous, Continuous PRN MEDICATIONS: Or Or 0.9% NaCl flush bag, Intravenous, CONTINUOUS PRN dextrose 10 % IV bolus, Intravenous, PRN dextrose 10 % IV bolus, Intravenous, PRN glucagon (Glucagen) injection 1 mg, Subcutaneous, PRN glucose (Diabetic Use) oral gel, Oral, PRN ondansetron (Zofran) injection 4 mg, Intravenous, q4h PRN senna (Senokot) tablet 8.6 mg, Oral, BID PRN traMADol (Ultram) tablet 25 mg, Oral, q6h PRN Assessment Septic shock, concern for left thigh nec fasc or Group A Strep cellulitis with myositis and Streptococcal toxic shock syndrome Strep bacteremia CK and CRP not majorly elevated, CK seems to have peaked Weaned off pressors IVIG 10/11-10/12 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, on chronic suppressive doxycycline 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 BID Afib, hx of DVT on eliquis BPH on flomax RADHA on CKD MICHAUD and cirrhosis with small lower esophageal varices on 2022 EGD, portal hypertensive gastropathy Hx of PUD with bleeding COPD Obesity, BMI 34 Plan -Follow up OSH blood culture identification -Continue ceftriaxone 2g daily -Continue vanc pending GPC identification to make sure not Enterococcus (or MRSA with a gram stain error) -Continue adjunctive clinda for another 1-2 days -Follow surgical eval, close monitoring of site, if any decompensation needs debridement as part ofsource control, worried about extending erythema to left leg Discussed with surgery CUT OFF TENDER GLASS Ruben and hospitalist Dr Fortune Addendum: Dandre reports Group G Strep, resistant to clinda. Given hemodynamic stability and resistance will stop clinda today. Okay to stop vanc as well. Aneta Campbell DO For quickest response please use [employer] Office: [phone] * Jody Miranda, CENTRAL OFFICE SUPERVISOR-BRIDGE [employer]PA[employer] PERSON - 10/14/2023 8:06 AM CDT SURGERY PROGRESS NOTE José Miguel Kramer Keys 1950 10/13/2023 Hospital Day: 1 Left thigh cellulitis Sepsis Atrial fibrillation Cirrhosis Psoriasis [place] COPD Clinical Course Extubated, off pressors C/o left leg pain Exam Vitals: 10/13/23 0600 10/13/23 0700 10/13/23 0800 10/13/23 0913 BP: 140/88 124/71 126/74 Pulse: (Abnormal) 120 (Abnormal) 114 (Abnormal) 125 (Abnormal) 128 Resp: 24 27 22 Temp: SpO2: 95% 95% 95% 96% Weight: Height: Intake/Output Summary (Last 24 hours) at 10/13/2023 0930 Last data filed at 10/13/2023 0845 Gross per 24 hour Intake 1640.03 ml Output 1035 ml Net 605.03 ml General appearance: alert, cooperative, no distress, Lungs: breath sounds normal and symmetric; Heart: regular rhythm, normal S1 and S2, without murmurs, gallops or rubs Abdomen: soft, non-tender, with normal bowel sounds Extremities: no clubbing, cyanosis or edema Skin: LLE with rash and erythema to upper/inner thigh, no crepitus or fluctuance, LLE now erythematous, no crepitus or fluctuance MEDICATIONS FOR CURRENT ENCOUNTER: SCHEDULED MEDICATIONS: albuterol-ipratropium (Duo-Neb) nebulizer solution 3 mL, Inhalation, q6h aspirin chew tablet 81 mg, Enteral Tube, QDAY cefTRIAXone (Rocephin) 2,000 mg in 0.9% NaCl IV 50 mL IVPB, Intravenous, q24h clindamycin (Cleocin) 900 mg in 50 mL D5W IVPB, Intravenous, q8h DULoxetine (Cymbalta) capsule 30 mg, Oral, QDAY gabapentin (Neurontin) capsule 100 mg, Oral, AT BEDTIME gabapentin (Neurontin) oral solution 200 mg, Oral, AT BEDTIME hydrocortisone sodium succinate PF (Solu-CORTEF) injection 50 mg, Intravenous, q6h insulin aspart (NovoLOG) pen 0-12 Units, Subcutaneous, q4h metoprolol tartrate IR (Lopressor) tablet 25 mg, Oral, BID pantoprazole (Protonix) injection 40 mg, Intravenous, QDAY pantoprazole EC (Protonix) tablet 40 mg, Oral, QDAY sodium bicarbonate 8.4 % injection 100 mEq, Intravenous, Once vancomycin (Vancocin) IV dose per pharmacy, Does not apply, DIRECTED [COMPLETED] perflutren lipid microsphere (Definity) injection 1.5 mL, Intravenous, intra-Procedure once [COMPLETED] sodium zirconium cyclosilicate (Lokelma) packet 10 g, Oral, Once [COMPLETED] vancomycin (Vancocin) 1,750 mg in 535 mL IVPB, Intravenous, Once CONTINUOUS MEDICATIONS: immune globulin (GAMUNEX-C) 10 % 40 g, Intravenous, Continuous sodium bicarbonate 8.4 % 75 mEq in 0.45% NaCl infusion (fluid), Intravenous, Continuous PRN MEDICATIONS: Or Or dextrose 10 % IV bolus, Intravenous, PRN dextrose 10 % IV bolus, Intravenous, PRN glucagon (Glucagen) injection 1 mg, Subcutaneous, PRN glucose (Diabetic Use) oral gel, Oral, PRN traMADol (Ultram) tablet 25 mg, Oral, q6h PRN Data My review of labs, imaging, notes and other tests is significant for : Recent Labs Component Name 10/13/23 0346 10/12/23 1136 10/12/23 0503 SODIUM 136 137 139 POTASSIUM 5.9* 5.3* 5.4* CHLORIDE 106 107 108* CO2 18* 21* 22 BUN 58* 41* 38* CREATININE 2.94* 2.82* 2.70* GLUCOSE 117* 173* 140* CALCIUM 8.2* 8.4 8.9 Recent Labs Component Name 10/13/23 0346 10/12/23 0503 03/08/23 1347 WBC 25.5* 36.4* 11.4* HGB 10.2* 13.0* 12.6* HCT 32.9* 43.1 39.0 PLTCOUNT 86* 124* 113* 129* Assessment and Plan LLE cellulitis- no signs of necrotizing fasciitis CT negative for gas or abscess Sepsis- BC +at OSH IV abx ID following Pain control Nephrology following- RADHA No plans for surgical intervention Jody Miranda, CENTRAL OFFICE SUPERVISOR-[employer] PERSON Ascom [id number] Associated attestation - Chris Pena DO - 10/14/2023 8:54 AM CDT Patient seen and examined with CUT OFF TENDER GLASS. Chart, labs, and imaging reviewed by me. Please see CUT OFF TENDER GLASS note for further details. I was present for the glaser portions of any procedures performed and always available. I confirm history, exam, assessment and plan with the following exceptions/additions: No drainable collection observed on exam with minimal tenderness Cont ABX, no plans for surgical intervention Please call if the status of the leg worsens, surgery will see as needed. Chris Pena DO 10/14/2023 8:53 AM General Surgeon, Surgical Arts [facility] Office: [phone] [facility] Office: [phone] Exchange: [phone] Continue antibiotics * Radha Malone MSW - 10/14/2023 8:03 AM CDT New Facility Referral Follow-up Tuesday summary note Pt remains in the ICU. Level of Care (SNF/Medicaid NH/Rehab/Safety Lead Care/LTACH): snf requested should pt be unable to rtn hme once stable for discharge. This worker spke with pts. spouse Trinity Keys @ [phone],,and below [facility]/ [facility]/ [facility] per spouse request. [facility] has an [employer] contract.Fac willing to review for possible admit. Ss updated fac pt is not yet stable for discharge currently remains in the ICU. MD's following for medical stability. Ss will continue to send updates for fac review. Rtn call rcd from Moni golden explained pt is NOT yet ready for discharge updates will be sent daily and when closer to discharge will then need final answer. Fac asked to please continue to follow for possible admit and they plan to follow. Assist appreciated. Additional info to follow/ updates will be sent daily.- updates sent today 10/13. Referrals initiated: Continued Care and Services - Admitted Since 10/12/2023 Destination Service Provider Request Status Selected Services Address Phone Fax Patient Preferred [facility] Pending - Request Sent N/A [id number], [facility] [id number] -- If Medicare-3 day qualifying stay verified: pt has [employer] and will need an Auth to transfer to any snf. [facility] to obtain snf Auth if to snf once fac with approval with an available bed. See cm note for all Auth updates if pt to snf @ time of discharge. monitoring facility responses Comments/changes:if to snf nrsg to please send fac orders,chart and discharge summary. Name: CHRIS Garcia Phone: [phone] * Neetu Llanes MD - 10/14/2023 5:28 AM CDT CCM Transfer Note: Septic shock resolved, now back on home Lopressor with good BP control and control of his atrial fibrillation HR. Hydrocortisone weaned to BID today, one tomorrow, then off. Antibiotics to be narrowed and IVIG course per ID. Respiratory status improved. Back on home O2 all day yesterday then wore home CPAP tonight which should continue QHS. Stable for transfer to cardiac telemetry. Neetu Llanes MD Critical Care * Zaki Salgado, [facility] - 10/14/2023 4:41 AM CDT Images from the original note were not included. Pharmacy Monitoring ACTIVE CONSULTS TO PHARMACY/DISEASE STATE MONITORING Pharmacy Consult: Vancomycin Management VANCOMYCIN MONITORING Indication: Sepsis with Goal Level: 15-20 mcg/ml Vancomycin Administrations from [facility]UG (last 72 hours) Date/Time Action Medication Dose Rate 10/13/23 0505 $ New Bag/Syringe vancomycin (Vancocin) 1,750 mg in 535 mL IVPB 1,750 mg 305.71 mL/hr 10/12/23 0636 $ New Bag/Syringe vancomycin (Vancocin) 1,500 mg in 530 mL IVPB 1,500 mg 353.33 mL/hr Recent Labs Component Name 10/14/23 0337 10/13/23 1153 10/13/23 0346 10/12/23 1136 10/12/23 0503 05/04/19 0307 05/03/19 1321 05/02/19 0410 05/01/19 0749 04/30/19 0242 04/29/19 0644 02/15/19 1650 CREATININE 2.96* 3.01* 2.94* - 2.70* - - - - - 1.14 - BUN 72* 60* 58* - 38* - - - - - 30* - WBC 26.3* - 25.5* - 36.4* - - - - - - - VANCORNDM 19.7 - 13.3 - - - - - - - 10.5 - VANCTROUGH - - - - - - 22.9* - 8.1* - - 16.5 - = values in this interval not displayed. Vancomycin Dosing/Modification History: Date Current Dose / Frequency Level result (mcg/mL) Level Type Level Drawn (date/time) Time from last dose (hrs) # of doses given since last dosing change 10/13 Serial 1750 mg doses 19.7 random 10/13 033 23 hours 1 Level in target range will dose with 1750 mg x1 now and check again with am labs 10/14 Zaki Salgado [facility] 10/14/2023 4:44 AM Plan for next level: Date/time 10/15 399 Type: []Trough ; [x] Random ; [] Peak Ordered?: [x] Yes ; [] No Subjective / Objective José Miguel Keys is a 72 year old male. No chief complaint on file. Height: 5' 10.98 (180.3 cm) Wt 111.1 kg (244 lb 14.9 oz) Body mass index is 34.18 kg/m??. Serum creatinine: 2.96 mg/dL (H) 10/14/23 0337 Estimated creatinine clearance: 27.7 mL/min (A) * Cleo Flynn RN - 10/14/2023 4:39 AM CDT Problem: Impaired Gas Exchange Goal: Resp rate/effort will be within specified limits Description: To maintain oxygen within normal parameters. RT to monitor. Outcome: Progressing Problem: Oral Intake: Inadequate oral intake Goal: Total intake will meet estimated nutrient needs Outcome: Progressing Problem: Fall Risk Goal: Fall risk and fall related injury risk are minimized (interventions related to the fall risk can be found in the flowsheet documentation) Outcome: Progressing Problem: Pain/Discomfort Goal: Patient exhibits reduced pain/discomfort as evidenced by pain scores Outcome: Progressing Goal: Patient uses pharmacological and non-pharmacological pain management strategies. Outcome: Progressing Goal: Patient verbalizes acceptable level of pain relief and ability to engage in desired activity. Outcome: Progressing Problem: Ineffective breathing pattern related to obstructive sleep apnea Goal: Maintains optimal sleep pattern, as evidenced by relaxed breathing at normal rate and depth. Outcome: Progressing Goal: Adheres to CPAP (Continuous Positive Airway Pressure) device regimen as prescribed. Outcome: Progressing Problem: Sleep deprivation related to sleep apnea. Goal: Achieves restful, refreshing sleep pattern. Outcome: Progressing * Cleo Flynn RN - 10/14/2023 3:56 AM CDT 10/13/231999 Rex Scale - Adult Sensory Perception 3 Moisture 3 Activity 1 Mobility 3 Nutrition 2 Friction and Shear 2 Total Score 14 Skin Skin (WDL) Exceptions Skin Condition Swollen;Rash Skin Color Red / Flushed Additional Skin Condition rash inner left thigh; BLE sheila purple discoloration CHG bath and 2 nurse skin assessment. BLE swelling and redness, left thigh rash. Scattered bruising. Q2 turns. Home bipap worn * Omi Fortune MD - 10/13/2023 2:18 PM CDT Internal Medicine Progress Note -Hospitalist Admit Date: 10/12/2023 4:19 AM Hospital Day: 1 Clinical Course: New Symptoms: Patient unable to communicate symptoms, but does not appear to be in any distress. Objective: Vitals: 10/13/23 1000 10/13/23 1026 10/13/23 1100 10/13/23 1200 BP: (!) 139/103 122/84 125/90 Pulse: (!) 134 109 (!) 112 Resp: 02 28 25 Temp: 99.3 ??F (37.4 ??C) SpO2: 96% 95% 93% 95% Weight: Height: General appearance: Intubated and ventilated Heart: normal rate Lungs: breath sounds normal and symmetric; no rales or wheezes Abdomen: soft without mass, non-tender, with normal bowel sounds Extremities: no clubbing, cyanosis or edema, chronic venous insufficiency changes on bilateral calves. Left thigh is red and tender. Intake/Output Summary (Last 24 hours) at 10/13/2023 1418 Last data filed at 10/13/2023 1300 Gross per 24 hour Intake 1061.12 ml Output 995 ml Net 66.12 ml Current Medications: MEDICATIONS FOR CURRENT ENCOUNTER: SCHEDULED MEDICATIONS: albuterol-ipratropium (Duo-Neb) nebulizer solution 3 mL, Inhalation, q6h aspirin chew tablet 81 mg, Enteral Tube, QDAY cefTRIAXone (Rocephin) 2,000 mg in 0.9% NaCl IV 50 mL IVPB, Intravenous, q24h clindamycin (Cleocin) 900 mg in 50 mL D5W IVPB, Intravenous, q8h DULoxetine (Cymbalta) capsule 30 mg, Oral, QDAY gabapentin (Neurontin) oral solution 100 mg, Oral, AT BEDTIME hydrocortisone sodium succinate PF (Solu-CORTEF) injection 50 mg, Intravenous, q6h insulin aspart (NovoLOG) pen 0-12 Units, Subcutaneous, 4X/day - AC & HS metoprolol tartrate IR (Lopressor) tablet 25 mg, Oral, BID pantoprazole (Protonix) injection 40 mg, Intravenous, QDAY vancomycin (Vancocin) IV dose per pharmacy, Does not apply, DIRECTED [COMPLETED] sodium bicarbonate 8.4 % injection 100 mEq, Intravenous, Once [COMPLETED] sodium zirconium cyclosilicate (Lokelma) packet 10 g, Oral, Once [COMPLETED] vancomycin (Vancocin) 1,750 mg in 535 mL IVPB, Intravenous, Once CONTINUOUS MEDICATIONS: immune globulin (GAMUNEX-C) 10 % 40 g, Intravenous, Continuous sodium bicarbonate 8.4 % 75 mEq in 0.45% NaCl infusion (fluid), Intravenous, Continuous PRN MEDICATIONS: Or Or dextrose 10 % IV bolus, Intravenous, PRN dextrose 10 % IV bolus, Intravenous, PRN glucagon (Glucagen) injection 1 mg, Subcutaneous, PRN glucose (Diabetic Use) oral gel, Oral, PRN ondansetron (Zofran) injection 4 mg, Intravenous, q4h PRN traMADol (Ultram) tablet 25 mg, Oral, q6h PRN Data: Recent Labs Component Name 10/13/23 1153 10/13/23 0346 10/12/23 1136 SODIUM 139 136 137 POTASSIUM 5.1 5.9* 5.3* BUN 60* 58* 41* CREATININE 3.01* 2.94* 2.82* GLUCOSE 131* 117* 173* Recent Labs Component Name 10/13/23 0346 10/12/23 0503 03/08/23 1347 WBC 25.5* 36.4* 11.4* HGB 10.2* 13.0* 12.6* HCT 32.9* 43.1 39.0 PLTCOUNT 86* 124* 113* 129* CT FEMUR LEFT WO CONTRAST Result Date: 10/12/2023 PROCEDURE: CT FEMUR LEFT WO CONTRAST DATE/TIME OF EXAM: 10/12/2023 10:00 AM CLINICAL INFORMATION: None relevant/not provided if blank. Indication: A41.89: Other specified sepsis (HCC) Additional History: Pain and swelling in left thigh COMPARISON: None. TECHNIQUE: CT of the left femur was performed utilizing standard protocol. CT dose reduction technique was used, including Automated Exposure Control. FINDINGS: There is a small left knee joint effusion. Severe degenerative change is seen in all 3compartments of the left knee. There is moderate edema in the skin and subcutaneous soft tissues along the medial aspect of the left thigh consistent with a moderate cellulitis. No gas is seen in the soft tissues. No inflammatory change is seen in the fascial planes between the muscles of the left thigh. There is no evidence for a drainable abscess. No swelling of the muscles in the left thigh isseen. There is a left total hip arthroplasty. No evidence for a hardware complication. IMPRESSION: There is a moderate cellulitis in the skin and subcutaneous soft tissues along the medial aspect of the left thigh. No gas is seen in the soft tissues. No drainable abscess collection is seen. No evidence for inflammatory change in the fascial planes of the left thigh. 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 > Interpreting Provider: Jose Alberto Kemp MD on 10/12/2023 11:59 AM XR CHEST 1VW PORTABLE Result Date: 10/12/2023 PROCEDURE: XR CHEST 1VW PORTABLE DATE/TIME OF EXAM: 10/12/2023 5:55 AM INDICATION: J96.00: Acute respiratory failure, unspecified whether with hypoxia or hypercapnia (HCC) COMPARISON: May 01, 2019ADDITIONAL CLINICAL INFORMATION (if provided): Ordering Provider Reason For Exam: Findings: There is an ET tube in the distal trachea less than 3 cm from the mattie. There is a right internal jugularcatheter projecting over the superior vena cava and a nasogastric tube is seen entering the upper abdomen The heart is borderline enlarged. The aorta is normal in caliber. The patient is severely rotated to the left limiting detail. There is some mild pleural and parenchymal change left base and blunting of the left costophrenic sulcus There is no confluent infiltrate .. There is no pneumothorax.There is no mass or adenopathy.. IMPRESSION: Tubes and lines in adequate position without a pneumothorax Oral and parenchymal changeat the left base slightly progressive in the interval > Interpreting Provider: Alberto Atwood MDon 10/12/2023 8:23 AM Assessment and Plan Septic shock POA Left thigh cellulitis GPC bacteremia Leukocytosis secondary to above Lactic acidosis secondary to above Patient transferred from outside facility in septic shock. 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 Labs significant for leukocytosis and lactic acidosis. Blood cultures at outside facility reported as GPC. Speciation pending CT scan of the thigh shows: Moderate cellulitis in the skin and subcutaneous soft tissues along themedial aspect of the left thigh. No gas. No drainable abscess. No evidence of inflammatory change in the facial planes. Concern for group a streptococcal toxic shock syndrome On IV vancomycin, ceftriaxone, clindamycin On IVIG for possible streptococcal toxic shock syndrome Critical care team, surgery and Infectious Disease on board. Acute on chronic hypoxemic respiratory failure HFpEF COPD Patient has a history of CHF and COPD. Initially intubated for worsening respiratory status. Extubated on 10/11. Continue with breathing treatment Goal-directed medical therapy held in the setting of shock Critical care team on board. Atrial fibrillation Beta-fe held in the setting of shock Anticoagulation held in anticipation for possible procedures. RADHA with CKD Likely a combination of ATN in the setting of shock and contrast induced nephropathy On bicarb GTT. Nephrology on board History of cirrhosis secondary to MICHAUD. Monitor LFTs Patient's Functional Baseline prior to admit: independent Discharge Planning to Next Site of Care: Other: tbd Anticipated discharge date: tbd READMISSION RISK SCORE is 16 at 2:18 PM 10/13/2023. DVT prophylaxis: heparin Full Code Omi Fortune MD 10/13/2023 2:18 PM Portions of this note may be dictated using voice recognition software. Variances in spelling and vocabulary are possible and unintentional. Not all errors are caught/corrected. Please notify the author if any discrepancies are noted or if the meaning of any statement is not clear. These grammatical oversights have no impact on the medical care provided to the patient. Time in which this note is created does not match the time of rounding/clinical exam. * Eula Song RD/LD - 10/13/2023 10:27 AM CDT CLINICAL NUTRITION Vent Day: 0 Pt discussed in rounds today. Patient extubated now on 2 L oxygen via nasal cannula Diet not advanced may need to go to OR Patients potassium high, blood sugars fine No fever Current diet order: NPO MEDICATIONS FOR CURRENT ENCOUNTER: SCHEDULED MEDICATIONS: albuterol-ipratropium (Duo-Neb) nebulizer solution 3 mL, Inhalation, q6h aspirin chew tablet 81 mg, Enteral Tube, QDAY cefTRIAXone (Rocephin) 2,000 mg in 0.9% NaCl IV 50 mL IVPB, Intravenous, q24h clindamycin (Cleocin) 900 mg in 50 mL D5W IVPB, Intravenous, q8h DULoxetine (Cymbalta) capsule 30 mg, Oral, QDAY gabapentin (Neurontin) oral solution 100 mg, Oral, AT BEDTIME hydrocortisone sodium succinate PF (Solu-CORTEF) injection 50 mg, Intravenous, q6h insulin aspart (NovoLOG) pen 0-12 Units, Subcutaneous, q4h metoprolol tartrate IR (Lopressor) tablet 25 mg, Oral, BID pantoprazole (Protonix) injection 40 mg, Intravenous, QDAY vancomycin (Vancocin) IV dose per pharmacy, Does not apply, DIRECTED [COMPLETED] perflutren lipid microsphere (Definity) injection 1.5 mL, Intravenous, intra-Procedure once [COMPLETED] sodium bicarbonate 8.4 % injection 100 mEq, Intravenous, Once [COMPLETED] sodium zirconium cyclosilicate (Lokelma) packet 10 g, Oral, Once [COMPLETED] vancomycin (Vancocin) 1,750 mg in 535 mL IVPB, Intravenous, Once CONTINUOUS MEDICATIONS: immune globulin (GAMUNEX-C) 10 % 40 g, Intravenous, Continuous sodium bicarbonate 8.4 % 75 mEq in 0.45% NaCl infusion (fluid), Intravenous, Continuous PRN MEDICATIONS: Or Or dextrose 10 % IV bolus, Intravenous, PRN dextrose 10 % IV bolus, Intravenous, PRN glucagon (Glucagen) injection 1 mg, Subcutaneous, PRN glucose (Diabetic Use) oral gel, Oral, PRN traMADol (Ultram) tablet 25 mg, Oral, q6h PRN Recent Labs Component Name 10/13/23 0346 10/12/23 1136 10/12/23 0503 02/09/22 0921 08/03/21 1025 01/09/21 1055 09/05/20 1325 SODIUM 136 137 139 - 139 137 140 POTASSIUM 5.9* 5.3* 5.4* - 4.7 4.4 4.2 CHLORIDE 106 107 108* - 102 102 103 CO2 18* 21* 22 - 27 26 28 BUN 58* 41* 38* - 41* 50* 27* CREATININE 2.94* 2.82* 2.70* - 1.89* 2.07* 1.46* GLUCOSE 117* 173* 140* - 124* 144* 109* CALCIUM 8.2* 8.4 8.9 - 9.6 9.7 9.9 EGFR 22* 23* 24* - 35* 31* 48* EGFRAFR - - - - 40* 36* 55* - = values in this interval not displayed. Blood Sugar Range Past 24 hours: Glucose Bedside (mg/dL) Av.4 mg/dL Min: 98 mg/dL Max: 129 mg/dL Last BM (Date): 10/11/23 (per patient) Bowel Sounds (All Quadrants): Hypoactive (per nursing documentation) Estimated Needs: KCAL: [id number] based on 11-14 kcal/kg actual wt Protein (g): 94 based on 1.2 g/kg ibw Fluid (ml): 1 ml/kcal Nutrition Issues/Plan: Monitor diet advancement, labs Monitor per nutrition guidelines. ASCOM [id number] * Jody Miranda, CENTRAL OFFICE SUPERVISOR-BRIDGE REPAIR CREW PERSON - 10/13/2023 9:30 AM CDT SURGERY PROGRESS NOTE José Miguel Nia Keys 1950 10/13/2023 Hospital Day: 1 Left thigh cellulitis Sepsis Atrial fibrillation Cirrhosis Psoriasis VALENTINA COPD Clinical Course Extubated, off pressors C/o left leg pain Exam Vitals: 10/13/23 0600 10/13/23 0700 10/13/23 0800 10/13/23 0913 BP: 140/88 124/71 126/74 Pulse: (Abnormal) 120 (Abnormal) 114 (Abnormal) 125 (Abnormal) 128 Resp: 24 21 27 22 Temp: SpO2: 95% 95% 95% 96% Weight: Height: Intake/Output Summary (Last 24 hours) at 10/13/2023 0930 Last data filed at 10/13/2023 0845 Gross per 24 hour Intake 1640.03 ml Output 1035 ml Net 605.03 ml General appearance: alert, cooperative, no distress, Lungs: breath sounds normal and symmetric; Heart: regular rhythm, normal S1 and S2, without murmurs, gallops or rubs Abdomen: soft, non-tender, with normal bowel sounds Extremities: no clubbing, cyanosis or edema Skin: LLE with rash and erythema to upper/inner thigh, no crepitus or fluctuance, LLE now erythematous, no crepitus or fluctuance MEDICATIONS FOR CURRENT ENCOUNTER: SCHEDULED MEDICATIONS: albuterol-ipratropium (Duo-Neb) nebulizer solution 3 mL, Inhalation, q6h aspirin chew tablet 81 mg, Enteral Tube, QDAY cefTRIAXone (Rocephin) 2,000 mg in 0.9% NaCl IV 50 mL IVPB, Intravenous, q24h clindamycin (Cleocin) 900 mg in 50 mL D5W IVPB, Intravenous, q8h DULoxetine (Cymbalta) capsule 30 mg, Oral, QDAY gabapentin (Neurontin) capsule 100 mg, Oral, AT BEDTIME gabapentin (Neurontin) oral solution 200 mg, Oral, AT BEDTIME hydrocortisone sodium succinate PF (Solu-CORTEF) injection 50 mg, Intravenous, q6h insulin aspart (NovoLOG) pen 0-12 Units, Subcutaneous, q4h metoprolol tartrate IR (Lopressor) tablet 25 mg, Oral, BID pantoprazole (Protonix) injection 40 mg, Intravenous, QDAY pantoprazole EC (Protonix) tablet 40 mg, Oral, QDAY sodium bicarbonate 8.4 % injection 100 mEq, Intravenous, Once vancomycin (Vancocin) IV dose per pharmacy, Does not apply, DIRECTED [COMPLETED] perflutren lipid microsphere (Definity) injection 1.5 mL, Intravenous, intra-Procedure once [COMPLETED] sodium zirconium cyclosilicate (Lokelma) packet 10 g, Oral, Once [COMPLETED] vancomycin (Vancocin) 1,750 mg in 535 mL IVPB, Intravenous, Once CONTINUOUS MEDICATIONS: immune globulin (GAMUNEX-C) 10 % 40 g, Intravenous, Continuous sodium bicarbonate 8.4 % 75 mEq in 0.45% NaCl infusion (fluid), Intravenous, Continuous PRN MEDICATIONS: Or Or dextrose 10 % IV bolus, Intravenous, PRN dextrose 10 % IV bolus, Intravenous, PRN glucagon (Glucagen) injection 1 mg, Subcutaneous, PRN glucose (Diabetic Use) oral gel, Oral, PRN traMADol (Ultram) tablet 25 mg, Oral, q6h PRN Data My review of labs, imaging, notes and other tests is significant for : Recent Labs Component Name 10/13/23 0346 10/12/23 1136 10/12/23 0503 SODIUM 136 137 139 POTASSIUM 5.9* 5.3* 5.4* CHLORIDE 106 107 108* CO2 18* 21* 22 BUN 58* 41* 38* CREATININE 2.94* 2.82* 2.70* GLUCOSE 117* 173* 140* CALCIUM 8.2* 8.4 8.9 Recent Labs Component Name 10/13/23 0346 10/12/23 0503 03/08/23 1347 WBC 25.5* 36.4* 11.4* HGB 10.2* 13.0* 12.6* HCT 32.9* 43.1 39.0 PLTCOUNT 86* 124* 113* 129* Assessment and Plan LLE cellulitis- no signs of necrotizing fasciitis CT negative for gas or abscess Sepsis- BC +at OSH IV abx ID following Pain control Nephrology following- RADHA Jody Miranda APRN-[employer] PERSON Ascom [id number] Associated attestation - Jane Ramirez DO - 10/13/2023 3:26 PM CDT Patient seen and examined with CUT OFF TENDER GLASS. Chart, labs, and imaging reviewed by me. Please see CUT OFF TENDER GLASS note for further details. I was present for the glaser portions of any procedures performed and always available. I confirm history, exam, assessment and plan with the following exceptions/additions: No acute issues overnight Patient awake and talking C/o left leg pain Exam TTP over medial thigh, no crepitus or necrosis, erythema and cellulitis noted of the entire lower extremity, moves leg without issues Continue IV abx No plans for surgical intervention Reviewed CT of leg Jane Ramirez [facility] General Surgeon, Surgical Arts [facility] Office: [phone] [facility] Office: [phone] Exchange: [phone] * Halina Barraza MD - 10/13/2023 9:18 AM CDT ICU Progress Note Hospital Day: 1 José Miguel D Hicks72 year old I have reviewed the chart. I have discussed the patient's care and condition with the care team. Subjective Overnight events/Interval history: Extubated to BiPAP yesterday, off Levophed, GPC in blood cultures. Worsening renal function. 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 Tobramycin Eye Itching red around the eyes, puffy, itchy Vitals: 10/13/23 0800 10/13/23 0900 10/13/23 0913 10/13/23 1000 BP: 126/74 134/93 (!) 139/103 Pulse: (!) 125 (!) 131 (!) 128 (!) 134 Resp: 27 14 22 9 Temp: SpO2: 95% 97% 96% 96% Weight: Height: Intake/Output Summary (Last 24 hours) at 10/13/2023 1011 Last data filed at 10/13/2023 0845 Gross per 24 hour Intake 1483.46 ml Output 1035 ml Net 448.46 ml Temp (30hrs) Max:99.3 ??F (37.4 ??C) Current Facility-Administered Medications Medication Dose Route Frequency albuterol-ipratropium (Duo-Neb) nebulizer solution 3 mL 3 mL Inhalation q6h aspirin chew tablet 81 mg 81 mg Enteral Tube QDAY cefTRIAXone (Rocephin) 2,000 mg in 0.9% NaCl IV 50 mL IVPB 2 g Intravenous q24h clindamycin (Cleocin) 900 mg in 50 mL D5W IVPB 900 mg Intravenous q8h gabapentin (Neurontin) oral solution 200 mg 200 mg Oral AT BEDTIME hydrocortisone sodium succinate PF (Solu-CORTEF) injection 50 mg 50 mg Intravenous q6h immune globulin (GAMUNEX-C) 10 % 40 g 0.5 g/kg ([place]) Intravenous Continuous insulin aspart (NovoLOG) pen 0-12 Units 0-12 Units Subcutaneous q4h pantoprazole (Protonix) injection 40 mg 40 mg Intravenous QDAY sodium bicarbonate 8.4 % 75 mEq in 0.45% NaCl infusion (fluid) Intravenous Continuous sodium bicarbonate 8.4 % injection 100 mEq 100 mEq Intravenous Once vancomycin (Vancocin) IV dose per pharmacy Does not apply DIRECTED BiPAP 18/01 25% Lines R IJ CVC (10/10, Dandre) Tubes Urinary Catheter: Leave urinary catheter in due to acuity of care Exam General appearance: alert, cooperative, no distress, on BiPAP Heart: irregular rhythm, tachycardia, without murmurs, rubs or gallops Lungs: breath sounds normal and symmetric; no rales or wheezes Abdomen: soft, obese, mild tenderness in RUQ, with normal bowel sounds Extremities: BLE edema / venous stasis dermatitis, erythema / induration R thigh now extending toward groin, below knee, exquisitely tender Results 10/13/23 03:46 Sodium 136 Potassium 5.9 (H) Chloride 106 CO2 18 (L) Anion Gap 12 BUN 58 (H) Creatinine 2.94 (H) Glucose 117 (H) Calcium 8.2 (L) Magnesium 1.8 Alkaline Phosphatase 48 ALT 20 AST 61 (H) Protein Total 7.2 Albumin 2.4 (L) Bilirubin Total 0.7 Hemoglobin A1c 6.5 (H) Estimated Average Glucose 140 WBC 25.5 (H) Hemoglobin 10.2 (L) Hematocrit 32.9 (L) MCV 99.7 (H) Platelet Count 86 (L) Neutrophils % 89.4 (H) Lymphocytes % 1.5 (L) Monocytes % 6.4 Eosinophils % 0.9 Basophils % 0.2 Assessment and Plan 10/11: Transfer from OSH for septic shock, severe SSTI, RADHA; intubated prior to transfer, extubated to BiPAP. Off Levophed. GPC growing in 2/2 BCx Septic shock / Streptococcal toxic shock syndrome Severe SSTI LLE, concern for necrotizing fasciitis, GAS cellulitis / possible myositis Gram positive bacteremia (likely GAS) GPC in chains in 2/2 blood cultures from [facility], await ID/S Blood cultures here NGTD (drawn after abx started) Continue vancomycin, Rocephin, clindamycin, IVIG per ID CT LLE with no gas or abscess / fluid collection Surgery following, no plans for I&D Off Levophed since yesterday Tapering steroids Acute on chronic hypoxemic respiratory failure Due to septic shock / multiorgan dysfunction Possible acute fluid overload following IVF resuscitation in OSH ER Underlying COPD / DCHF / VALENTINA, on 2 L NC, CPAP qhs Extubated to BiPAP yesterday afternoon and tolerating Placed on 2 L NC this AM Continue BD, NIMV prn / qhs (ask family to bring home machine) Acute kidney injury CKD ATN due to shock / hypoperfusion + contrast nephropathy (CT at OSH) Baseline Cr 1.7-2.0 range Cr up to 2.94, nonoliguric, but persistently hyperkalemic and acidotic Will ask Nephrology to see today Hyperkalemia Due to ARF / RADHA On no medications to explain (HEAD GREENSKEEPER KCl and spironolactone have been on hold) Continues on bicarb gtt, received another dose of Lokelma this AM Given additional bicarb IVP, repeat labs this afternoon Nephrology to see, as above Thrombocytopenia Due to sepsis No evidence of bleeding Will hold SQ heparin, monitor counts Hyperglycemia Due to acute stress / steroids No h/o DM, but HgbA1c 6.5 c/w undiagnosed DM Requiring minimal SSI, but has been NPO Tapering steroids HFpEF (by hx), HFrEF Echo this admission shows EF 45% without WMA, likely myocardial depression due to sepsis Troponin minimally elevated at OSH c/w demand ischemia Diuretics on hold for now with resolving shock, RADHA Chronic atrial fibrillation Rate now uncontrolled, as BB has been on hold Will resume metoprolol now that pt off pressors and BP stable Continue to hold Eliquis with worsening appearance of LLE and possible need for surgical intervention Cirrhosis due to MICHAUD Portal HTN / esophageal varices by hx AST slightly elevated today (likely ischemic due to shock) Coags normal at OSH Continue to monitor DVT / GI prophylaxis SCDs, SQ heparin held for TCP Continue HEAD GREENSKEEPER PPI Discussed with pt, CUT OFF TENDER GLASS Ruben Barraza M.D. Critical Care Medicine Time in: 9:15 AM Time out: 10:11 AM Total CCM time 56 min * Radha Malone MSW - 10/13/2023 8:30 AM CDT New Facility Referral Follow-up Level of Care (SNF/Medicaid NH/Rehab/Usp Care/LTACH): snf requested should pt be unable to rtn hme once stable for discharge. This worker spke with pts. spouse Trinity Keys @ [phone],yesterday ,and with mess out to below [facility]/ [facility]/ [facility] per spouse request to see if fac with contract with pts insurance. This worker with rtn call again today,spke with Emma today 10/12,with fac belows admissions ,and they do have a contract with [employer]. Facwilling to review for possible admit. Ss updated fac pt not yet stable for discharge currently remains in the ICU. MD's following for medical stability. Ss will continue to send updates for fac review. Rtn call rcd from [facility] and fac stating unable to meet pts needs. I explained pt is NOT yet ready for discharge updates will be sent daily and when closer to discharge will then need final answer. Facasked to please continue to follow for possible admit and they plan to follow. Assist appreciated. Additional info to follow/ updates will be sent daily. Referrals initiated: Continued Care and Services - Admitted Since 10/12/2023 Destination Service Provider Request Status Selected Services Address Phone Fax Patient Preferred [facility] Pending - Request Sent N/A [id number] [facility] [address] [place] [id number] -- If Medicare-3 day qualifying stay verified: pt has [employer] and will need an Auth to transfer to any snf. Hospital to obtain snf Auth if to snf once fac with approval with an available bed. See cm note for all Auth updates if pt to snf @ time of discharge. monitoring facility responses Comments/changes:if to snf nrsg to please send fac orders,chart and discharge summary. Name: CHRIS Garcia Phone: [phone] * Aviva Vega RCP - 10/13/2023 8:24 AM CDT Patient resting on Bipap. Will continue to follow per order. * Anatoly Villarreal, PharmD - 10/13/2023 8:08 AM CDT Images from the original note were not included. Pharmacy Monitoring ACTIVE CONSULTS TO PHARMACY/DISEASE STATE MONITORING Pharmacy Consult: Medication Management Medication Adjustment Date Interchange/ Adjustment Medication Current Dose /Frequency Adjusted Dose/ Frequency 10/13/23 Frequency Cefepime 2 g IV every 12 2 g IV every 24 Assessment: Cefepime has been adjusted for CrCl 10-30 ml per min. Subjective / Objective Height: 5' 10.98 (180.3 cm) Wt 111.1 kg (244 lb 14.9 oz) Body mass index is 34.18 kg/m??. Serum creatinine: 2.94 mg/dL (H) 10/13/23 0346 Estimated creatinine clearance: 27.9 mL/min (A) * Monisha Emanuel)Makayla RN - 10/13/2023 8:08 AM CDT Care Coordination Progress Note Anticipated level of care at discharge: Care Home - Skilled Facility, Home Health Care Comment: see progress sect for all snf referrals made: Anticipated level of care provider: None: Anticipated Discharge Date: 10/17/23: Discharge Plan: Patient remains in ICU now on BiPap. Here from home where he was living with his . No PT/OT evals now. Most likely will need SNF. has requested [facility] to assist with discharge. Orientation Level: Oriented to Person;Oriented to Time;Oriented to Place: Family Support (Name and Phone): Extended Emergency Contact Information Primary Emergency Contact: Trinity Keys Address: [address] [place] [address] [place] [address] [facility] Mobile Relation: Spouse City Manager needed? No Transportation at Discharge: Family: READMISSION RISK SCORE is 14 at 8:08 AM 10/13/2023.: Name: Makayla Echavarria RN * Aneta Campbell DO - 10/13/2023 8:03 AM CDT Infectious Diseases Progress Note José Miguel Keys 10/13/2023 Hospital Day 1 Subjective Neuropathy pain is bad No abdominal pain, nausea Left leg still hurts Afebrile, WBC back to 25, Cr stable, weaned off pressors Abx Vanc 10/11- Cefepime 10/11 Clindamycin 10/11- Flagyl 10/11-10/12 Exam BP 124/71 Pulse (!) 114 Temp 98.9 ??F (37.2 ??C) (Axillary) Resp 21 Ht 1.803 m (5' 10.98 ) Wt 111.1 kg (244 lb 14.9 oz) SpO2 95% BMI 34.18 kg/m?? General: NAD Neuro: Alert Lungs: non-labored, diminished at bases CV: tachy, regular Abd: soft, no guarding, bowel sounds present Ext: Left thigh area of redness and firmness stable, does not have woody texture, very tender though. Possibly mildly increased redness to the lower left leg R IJ CVC 10/10- Data Recent Labs Component Name 10/13/23 0346 10/12/23 0503 03/08/23 1347 WBC 25.5* 36.4* 11.4* HGB 10.2* 13.0* 12.6* HCT 32.9* 43.1 39.0 PLTCOUNT 86* 124* 113* 129* Recent Labs Component Name 10/13/236 10/12/23 1136 10/12/23 0503 SODIUM 136 137 139 POTASSIUM 5.9* 5.3* 5.4* CHLORIDE 106 107 108* CO2 18* 21* 22 BUN 58* 41* 38* CREATININE 2.94* 2.82* 2.70* GLUCOSE 117* 173* 140* CALCIUM 8.2* 8.4 8.9 Recent Labs Component Name 10/13/23 03410/12/23 1136 10/12/23 0503 03/08/23 1347 ALBUMIN 2.4* 2.6* 3.0* 3.7 ALKPHOS 48 - 64 120 ALT 20 - 17 20 AST 61* - 24 27 TBIL 0.7 - 1.6* 0.6 TPROT 7.2 - 6.7 7.1 Microbiology Blood culture 10/10 [facility] GPC pair/chain 10/11 ngtd Radiology 10/10 CXR: Mild interstitial edema vs senescent change 10/10 Venous Doppler LLE: No DVT 10/10 CTA Chest: Distended gallbladder, cholelithiasis. No PE 10/10 CT A/P wo: stone in gallbladder neck. L1-2 fusion. Mild peripancreatic inflammatory changes 10/11 CT LLE wo: MEDICATIONS FOR CURRENT ENCOUNTER: SCHEDULED MEDICATIONS: albuterol-ipratropium (Duo-Neb) nebulizer solution 3 mL, Inhalation, q6h aspirin chew tablet 81 mg, Enteral Tube, QDAY cefepime (Maxipime) 2,000 mg in 0.9% NaCl IV 50 mL IVPB, Intravenous, q24h clindamycin (Cleocin) 900 mg in 50 mL D5W IVPB, Intravenous, q8h gabapentin (Neurontin) oral solution 200 mg, Oral, AT BEDTIME hydrocortisone sodium succinate PF (Solu-CORTEF) injection 50 mg, Intravenous, q6h insulin aspart (NovoLOG) pen 0-12 Units, Subcutaneous, q4h metroNIDAZOLE (Flagyl) 500 mg in 100 mL IVPB, Intravenous, q8h pantoprazole (Protonix) injection 40 mg, Intravenous, QDAY vancomycin (Vancocin) IV dose per pharmacy, Does not apply, DIRECTED [COMPLETED] perflutren lipid microsphere (Definity) injection 1.5 mL, Intravenous, intra-Procedure once [COMPLETED] sodium zirconium cyclosilicate (Lokelma) packet 10 g, Oral, Once [COMPLETED] vancomycin (Vancocin) 1,500 mg in 530 mL IVPB, Intravenous, Once [COMPLETED] vancomycin (Vancocin) 1,750 mg in 535 mL IVPB, Intravenous, Once CONTINUOUS MEDICATIONS: immune globulin (GAMUNEX-C) 10 % 40 g, Intravenous, Continuous sodium bicarbonate 8.4 % 75 mEq in 0.45% NaCl infusion (fluid), Intravenous, Continuous PRN MEDICATIONS: Or Or dextrose 10 % IV bolus, Intravenous, PRN dextrose 10 % IV bolus, Intravenous, PRN glucagon (Glucagen) injection 1 mg, Subcutaneous, PRN glucose (Diabetic Use) oral gel, Oral, PRN traMADol (Ultram) tablet 25 mg, Oral, q6h PRN Assessment Septic shock, concern for left thigh nec fasc or Group A Strep cellulitis with myositis and Streptococcal toxic shock syndrome Bacteremia from Dandre labs CK and CRP not majorly elevated Weaned off pressors IVIG started 10/11 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, on chronic suppressive doxycycline 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 BID Afib, hx of DVT on eliquis BPH on flomax RADHA on CKD MICHAUD and cirrhosis with small lower esophageal varices on 2022 EGD, portal hypertensive gastropathy Hx of PUD with bleeding COPD Obesity, BMI 34 Plan -Follow up OSH blood culture identification -Stop cefepime and flagyl -Start ceftriaxone 2g daily -Continue vanc pending GPC identification to make sure not Enterococcus (or MRSA with a gram stain error) -Continue adjunctive clinda for another 1-2 days -Follow surgical eval, close monitoring of site, if any decompensation needs debridement as part ofsource control, worried about extending erythema to left leg Addendum: Called Dandre at 1155, still just GPC no identification. Aneta Campbell DO For quickest response please use [employer] Office: [phone] * Zaki Salgado, [facility] - 10/13/2023 4:22 AM CDT Images from the original note were not included. Pharmacy Monitoring Pharmacy Consult: Vancomycin Management VANCOMYCIN MONITORING Indication: Sepsis with Goal Level: 15-20 mcg/ml Vancomycin Administrations from [facility] (last 72 hours) Date/Time Action Medication Dose Rate 10/12/23 0636 $ New Bag/Syringe vancomycin (Vancocin) 1,500 mg in 530 mL IVPB 1,500 mg 353.33 mL/hr Recent Labs Component Name 10/13/23 0346 10/12/23 1136 10/12/23 0503 03/08/23 1347 05/04/19 0307 05/03/19 1321 05/02/19 0410 05/01/19 0749 04/30/19 0242 04/29/19 0644 02/15/19 1650 02/08/19 0256 02/07/19 0409 CREATININE 2.94* 2.82* 2.70* 1.96* - - - - - 1.14 - - 1.20* BUN 58* 41* 38* 31* - - - - - 30* - - 17 WBC 25.5* - 36.4* 11.4* - - - - - - - - 10.0 VANCORNDM 13.3 - - - - - - - - 10.5 - - 20.9 VANCTROUGH - - - - - 22.9* - 8.1* - - 16.5 - - - = values in this interval not displayed. Vancomycin Dosing/Modification History: Date Current Dose / Frequency Level result (mcg/mL) Level Type Level Drawn (date/time) Time from last dose (hrs) # of doses given since last dosing change 10/12 Serial 1750 mg doses 13.3 random 10/12 0346 10/11 1 Level back lower than target @ 13.3 mcg/ml- will order x1 dose of 1750mg now and check with am labs10/13 Zaki Salgado RPH 10/13/2023 4:25 AM Plan for next level: Date/time 10/14 399 Type: []Trough ; [x] Random ; [] Peak Ordered?: [x] Yes ; [] No Subjective / Objective José Miguel Keys is a 72 year old male. No chief complaint on file. Height: 5' 10.98 (180.3 cm) Wt 111.1 kg (244 lb 14.9 oz) Body mass index is 34.18 kg/m??. Serum creatinine: 2.94 mg/dL (H) 10/13/23 0346 Estimated creatinine clearance: 27.9 mL/min (A) * Omi Fortune MD - 10/12/2023 3:23 PM CDT Internal Medicine Progress Note -Hospitalist Admit Date: 10/12/2023 4:19 AM Hospital Day: 0 Clinical Course: New Symptoms: Patient unable to communicate symptoms, but does not appear to be in any distress. Objective: Vitals: 10/12/23 1300 10/12/23 1315 10/12/23 1330 10/12/23 1345 BP: 86/62 94/57 89/64 99/56 Pulse: 96 98 80 101 Resp: 25 25 22 16 Temp: SpO2: 97% 96% 97% 98% Weight: Height: General appearance: Intubated and ventilated Heart: normal rate Lungs: breath sounds normal and symmetric; no rales or wheezes Abdomen: soft without mass, non-tender, with normal bowel sounds Extremities: no clubbing, cyanosis or edema, chronic venous insufficiency changes on bilateral calves. Left thigh is red and tender. Intake/Output Summary (Last 24 hours) at 10/12/2023 1523 Last data filed at 10/12/2023 1400 Gross per 24 hour Intake 1225.63 ml Output 470 ml Net 755.63 ml Current Medications: MEDICATIONS FOR CURRENT ENCOUNTER: SCHEDULED MEDICATIONS: albuterol-ipratropium (Duo-Neb) nebulizer solution 3 mL, Inhalation, q6h artificial tears ophthalmic ointment, Each Eye, q8h aspirin chew tablet 81 mg, Enteral Tube, QDAY cefepime (Maxipime) 2,000 mg in 0.9% NaCl IV 50 mL IVPB, Intravenous, q12h chlorhexidine (Peridex) 0.12 % oral solution 15 mL, Mouth/Throat, BID clindamycin (Cleocin) 900 mg in 50 mL D5W IVPB, Intravenous, q8h gabapentin (Neurontin) oral solution 100 mg, Enteral Tube, AT BEDTIME heparin injection 5,000 Units, Subcutaneous, q8h hydrocortisone sodium succinate PF (Solu-CORTEF) injection 100 mg, Intravenous, q8h insulin aspart (NovoLOG) pen 0-12 Units, Subcutaneous, q4h metroNIDAZOLE (Flagyl) 500 mg in 100 mL IVPB, Intravenous, q8h pantoprazole (Protonix) injection 40 mg, Intravenous, QDAY vancomycin (Vancocin) IV dose per pharmacy, Does not apply, DIRECTED [COMPLETED] perflutren lipid microsphere (Definity) injection 1.5 mL, Intravenous, intra-Procedure once [COMPLETED] sodium zirconium cyclosilicate (Lokelma) packet 10 g, Enteral Tube, Once [COMPLETED] vancomycin (Vancocin) 1,500 mg in 530 mL IVPB, Intravenous, Once CONTINUOUS MEDICATIONS: immune globulin (GAMUNEX-C) 10 % 75 g, Intravenous, Continuous norepinephrine (Levophed) 8 mg/250 ml D5 infusion premix, Intravenous, Continuous propofol (Diprivan) infusion, Intravenous, Continuous sodium bicarbonate 8.4 % 75 mEq in 0.45% NaCl infusion (fluid), Intravenous, Continuous PRN MEDICATIONS: Or Or dextrose 10 % IV bolus, Intravenous, PRN dextrose 10 % IV bolus, Intravenous, PRN glucagon (Glucagen) injection 1 mg, Subcutaneous, PRN glucose (Diabetic Use) oral gel, Oral, PRN Data: Recent Labs Component Name 10/12/23 1136 10/12/23 0503 03/08/23 1347 SODIUM 137 139 141 POTASSIUM 5.3* 5.4* 4.4 BUN 41* 38* 31* CREATININE 2.82* 2.70* 1.96* GLUCOSE 173* 140* 104 Recent Labs Component Name 10/12/23 0503 03/08/23 1347 08/23/222023 WBC 36.4* 11.4* 7.9 HGB 13.0* 12.6* 14.1 HCT 43.1 39.0 44.3 PLTCOUNT 124* 113* 129* 194 CT FEMUR LEFT WO CONTRAST Result Date: 10/12/2023 PROCEDURE: CT FEMUR LEFT WO CONTRAST DATE/TIME OF EXAM: 10/12/2023 10:00 AM CLINICAL INFORMATION: None relevant/not provided if blank. Indication: A41.89: Other specified sepsis (HCC) Additional History: Pain and swelling in left thigh COMPARISON: None. TECHNIQUE: CT of the left femur was performed utilizing standard protocol. CT dose reduction technique was used, including Automated Exposure Control. FINDINGS: There is a small left knee joint effusion. Severe degenerative change is seen in all 3compartments of the left knee. There is moderate edema in the skin and subcutaneous soft tissues along the medial aspect of the left thigh consistent with a moderate cellulitis. No gas is seen in the soft tissues. No inflammatory change is seen in the fascial planes between the muscles of the left thigh. There is no evidence for a drainable abscess. No swelling of the muscles in the left thigh isseen. There is a left total hip arthroplasty. No evidence for a hardware complication. IMPRESSION: There is a moderate cellulitis in the skin and subcutaneous soft tissues along the medial aspect of the left thigh. No gas is seen in the soft tissues. No drainable abscess collection is seen. No evidence for inflammatory change in the fascial planes of the left thigh. 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 > Interpreting Provider: oJse Alberto Kemp MD on 10/12/2023 11:59 AM XR CHEST 1VW PORTABLE Result Date: 10/12/2023 PROCEDURE: XR CHEST 1VW PORTABLE DATE/TIME OF EXAM: 10/12/2023 5:55 AM INDICATION: J96.00: Acute respiratory failure, unspecified whether with hypoxia or hypercapnia ([facility]) COMPARISON: May 01, 2019ADDITIONAL CLINICAL INFORMATION (if provided): Ordering Provider Reason For Exam: Findings: There is an ET tube in the distal trachea less than 3 cm from the mattie. There is a right internal jugularcatheter projecting over the superior vena cava and a nasogastric tube is seen entering the upper abdomen The heart is borderline enlarged. The aorta is normal in caliber. The patient is severely rotated to the left limiting detail. There is some mild pleural and parenchymal change left base and blunting of the left costophrenic sulcus There is no confluent infiltrate .. There is no pneumothorax.There is no mass or adenopathy.. IMPRESSION: Tubes and lines in adequate position without a pneumothorax Oral and parenchymal changeat the left base slightly progressive in the interval > Interpreting Provider: Alberto Atwood MDon 10/12/2023 8:23 AM Assessment and Plan Septic shock POA Left thigh cellulitis GPC bacteremia Leukocytosis secondary to above Lactic acidosis secondary to above Patient transferred from outside facility in septic shock. 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 Labs significant for leukocytosis and lactic acidosis. Blood cultures at outside facility reported as GPC. Speciation pending CT scan of the thigh shows: Moderate cellulitis in the skin and subcutaneous soft tissues along themedial aspect of the left thigh. No gas. No drainable abscess. No evidence of inflammatory change in the facial planes. Concern for group a streptococcal toxic shock syndrome Started on IV vancomycin, cefepime, Flagyl, clindamycin Started on IVIG for possible streptococcal toxic shock syndrome On Levophed for pressor support. Critical care team and Infectious Disease on board. Acute on chronic hypoxemic respiratory failure CHF COPD Patient has a history of CHF and COPD. Intubated for worsening respiratory status. Continue with breathing treatment Goal-directed medical therapy held in the setting of shock Echocardiography pending Vent settings per critical care team. Atrial fibrillation Beta-fe held in the setting of shock Anticoagulation held in anticipation for possible procedures. RADHA with CKD Likely a combination of hemodynamic and contrast induced nephropathy Continue with IV hydration Monitor BMP History of cirrhosis secondary to MICHAUD. Monitor LFTs Patient's Functional Baseline prior to admit: independent Discharge Planning to Next Site of Care: Other: tbd Anticipated discharge date: tbd READMISSION RISK SCORE is 13 at 3:23 PM 10/12/2023. DVT prophylaxis: heparin Full Code Omi Fortune MD 10/12/2023 3:23 PM Portions of this note may be dictated using voice recognition software. Variances in spelling and vocabulary are possible and unintentional. Not all errors are caught/corrected. Please notify the author if any discrepancies are noted or if the meaning of any statement is not clear. These grammatical oversights have no impact on the medical care provided to the patient. Time in which this note is created does not match the time of rounding/clinical exam. * Bell Gilliam, ASHWINI/LD - 10/12/2023 11:42 AM CDT Brief Synopsis: Patient is at nutrition risk but does not meet malnutrition criteria. Nutrition Plan: Current diet order: NPO Recommendations to Physician: if pt remains on vent initiate tube feeding recommend Nepro @ 30 ml/hr with 50 ml free h20 Q 4 hours (provides 1296 kcal 58 g protein 522 ml free h20 + 300 ml free h20) Discharge Needs: pending clinical course Nutrition Assessment Patient Summary: chart reviewed 2/2 pt discussed in rounds Pt sedated on diprivan gtt infusing at 10 ml/hr (provides 264 kcal in 24 hours) Pt on levo Pt with og no plans for tube feeding currently awaiting surgery eval Pt normally with good po Assessment: Med/Surg History and Clinical Diagnoses: Fluid and electrolyte disorder: hyperkalemia requiring further monitoring Thrombocytopenia Thrombocytopenia requiring further monitoring Hypoalbuminemia requiring further monitoring Chronic kidney disease: Chronic Kidney Disease, Unspecified Cardiac arrhythmia: Atrial fibrillation, unspecified Congestive Heart Failure Shock: Severe sepsis with shock Obesity Patient receiving mechanical ventilation Weight Review Height: 180.3 cm (5' 10.98 ) Last Weight: 111.1 kg (244 lb 14.9 oz) (10/12/23 0507) Last [place] Body Weight IBW/lb (Calculated) Male: 171.904 BMI: Body mass index is 34.18 kg/m??. BMI Range: Obese Class 1 Weight Assessment: wt stable recently down over past year Wt Readings from Last 10 Encounters: 10/12/23 111.1 kg (244 lb 14.9 oz) 05/12/23 111.1 kg (245 lb) 03/21/23 110.7 kg (244 lb) 10/07/22 120.7 kg (266 lb) 08/23/22 120.7 kg (266 lb) 08/23/22 120.7 kg (266 lb) 02/23/22 120.2 kg (265 lb) 08/17/21 121.1 kg (267 lb) 12/30/20 114.8 kg (253 lb) 08/26/20 114.9 kg (253 lb 6.4 oz) PO INTAKE Current diet order: NPO Food Allergies: Other (Comments) (all Peppers) Last Supplement(s) Consumed- Last 48 hours None PO Intake Assessment: pt npo GI Concerns: (last bm prior to admit) Chewing/Swallowing: Other (Comment) (on vent) Skin/Wound: BLE reddened tender Last Skin Condition: Rash;Swollen (10/12/23 0800) Pain affecting intake: No Estimated Needs: KCAL: [id number] based on 11-14 kcal/kg actual wt Protein (g): 94 based on 1.2 g/kg ibw Fluid (ml): 1 ml/kcal Needs based on: Kcal/kg- (Comment) Recommended Access Route: TF Labs: Recent Labs Component Name 10/12/23 0503 SODIUM 139 POTASSIUM 5.4* CHLORIDE 108* CO2 22 BUN 38* CREATININE 2.70* GLUCOSE 140* CALCIUM 8.9 ALBUMIN 3.0* ALKPHOS 64 ALT 17 AST 24 TBIL 1.6* TPROT 6.7 EGFR 24* Recent Labs Component Name 10/12/23 0503 09/19/17 0243 09/18/17 0003 PHOS 3.1 2.5 2.8 Recent Labs Component Name 02/03/19 0106 07/14/17 2212 HGBA1C 5.8 6.3 No data found. PERTINENT MEDICATIONS FOR CURRENT ENCOUNTER: SCHEDULED MEDICATIONS: albuterol-ipratropium (Duo-Neb) nebulizer solution 3 mL, Inhalation, q6h artificial tears ophthalmic ointment, Each Eye, q8h aspirin chew tablet 81 mg, Enteral Tube, QDAY cefepime (Maxipime) 2,000 mg in 0.9% NaCl IV 50 mL IVPB, Intravenous, q12h chlorhexidine (Peridex) 0.12 % oral solution 15 mL, Mouth/Throat, BID clindamycin (Cleocin) 900 mg in 50 mL D5W IVPB, Intravenous, q8h gabapentin (Neurontin) oral solution 100 mg, Enteral Tube, AT BEDTIME heparin injection 5,000 Units, Subcutaneous, q8h hydrocortisone sodium succinate PF (Solu-CORTEF) injection 100 mg, Intravenous, q8h insulin aspart (NovoLOG) pen 0-12 Units, Subcutaneous, q4h metroNIDAZOLE (Flagyl) 500 mg in 100 mL IVPB, Intravenous, q8h pantoprazole (Protonix) injection 40 mg, Intravenous, QDAY vancomycin (Vancocin) IV dose per pharmacy, Does not apply, DIRECTED [COMPLETED] perflutren lipid microsphere (Definity) injection 1.5 mL, Intravenous, intra-Procedure once [COMPLETED] sodium zirconium cyclosilicate (Lokelma) packet 10 g, Enteral Tube, Once [COMPLETED] vancomycin (Vancocin) 1,500 mg in 530 mL IVPB, Intravenous, Once CONTINUOUS MEDICATIONS: immune globulin (GAMUNEX-C) 10 % 75 g, Intravenous, Continuous norepinephrine (Levophed) 8 mg/250 ml D5 infusion premix, Intravenous, Continuous propofol (Diprivan) infusion, Intravenous, Continuous- infusing at 10 mlhr (provides 264 kcal in 24hours ) sodium bicarbonate 8.4 % 75 mEq in 0.45% NaCl infusion (fluid), Intravenous, Continuous ~~~~~~~~~~~~~~~~~~~~~~~~~~~~~~~~~ Nutrition Diagnostic Statement: Inadequate oral intake related to:: decreased ability to consume ortolerate food and/or fluids due to illness as evidenced by:: oral intake insufficient to meet estimated requirements Nutrition Intervention: Meals and snacks:;Collaboration with other providers Education Provided: Not appropriate (10/12/23 1100) Recommendation/Plan: Nutrition recommendation: agree with current nutrition order If no plans for surgery and pt remains on vent initiate tube feeding via og Monitoring: Ability to initiate tube feeding vs weaning and taking po Labs Skin integrity Plan of care Evaluation: Nutrition Goal: Total intake will meet estimated nutrient needs Nutrition Goal Timeframe: Throughout stay * Monisha (Willie)Makayla RN - 10/12/2023 11:35 AM CDT Care Coordination Initial Assessment Anticipated Discharge Date: 10/17/23 Transportation at Discharge: Family Anticipated level of care at discharge: Care Home - Skilled Facility, Home Health Care Anticipated level of care provider: None Prior to admission level of care: Home Prior to admit provider: None Patient Goals: home vs SNF Plans: Discharge needs identified. See progress notes for details. Case Management to follow for discharge planning. Comments: Patient in ICU on Vent. No family present at time of my attempted interview. Patient transferred here from OSH Intubated and vented on arrival. PC to patient's . 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 assists withbathing, patient can dress self, uses a walker but most recently was using a wheelchair r/t increased SOB. Patient has Home O2 and uses with BiPap at Night, most recently was using O2 during the day.Had been going [facility] the [facility] to use their recumbent bike when became really SOB and he told he couldn't do that anymore. Patient has been to [facility] in [place], [place]. If SNF is needed at time of discharge that is her choice. SW consulted to follow. Lives with: Spouse Physical Limitations: Requires Assistance With: Hygiene;Housekeeping;Meal Preparation;Medication Administration;Shopping Preferred Pharmacy: [id number] [phone] [facility] [id number] [phone] [facility] [address] READMISSION RISK SCORE is 13 at 11:35 AM 10/12/2023. Met with patient and spouse Family Support (name and phone): Extended Emergency Contact Information Primary Emergency Contact: Trinity Keys Address: [address] [place] [address] [facility] Mobile Relation: Spouse City Manager needed? No Patient or office services representative requests care coordination reach out to family or caregiver listed above regarding discharge planning and at time of discharge? Yes Patient/Family provided with list of resources? Yes Preferred Provider / High Quality Network List given?: Unknown Reason for provider choice: Pt. choice - Pt. choice Equipment at Home: Commode-Bedside;Walker-2 Wheeled;Walker-4 Wheeled with Seat;Wheelchair-Standard;Operating Room Scheduler;Dressing Stick;Sock Aid Merchandising Coordinator Referral: Yes Will continue to follow. For any questions or needs please contact: Woodworking Machine Offbearer Name/Phone number: Makayla Echavarria RN * Cathy Carlton RCP - 10/12/2023 10:16 AM CDT To maintain oxygen within normal parameters. RT to monitor. * Germania Mayfield RN - 10/12/2023 6:42 AM CDT Images from the original note were not included. Admission skin note: Patient was assessed by two nurses, CHG bath provided, Bilateral lower extremity edema, skin is red and sheila. Bilateral heels are dry. Buttocks is red as shown in the picture. Redness/rashes noted on the left inner thigh. * Farooq Kathleen [facility] - 10/12/2023 6:04 AM CDT Images from the original note were not included. Pharmacy Monitoring ACTIVE CONSULTS TO PHARMACY/DISEASE STATE MONITORING Pharmacy Consult: Vancomycin Management VANCOMYCIN MONITORING Indication: Cellulitis/ulceration non-diabetic with Goal Level: 15-20 mcg/ml, Sepsis with Goal Level: 15-20 mcg/ml Vancomycin Administrations from [facility] (last 72 hours) None Recent Labs Component Name 10/12/23 0503 03/08/23 1347 08/23/224 05/04/19 0307 05/03/19 1321 05/02/19 0410 05/01/19 0749 04/30/19 0242 04/29/19 0644 02/15/19 1650 02/08/19 0256 02/07/19 0409 02/06/19 0419 CREATININE 2.70* 1.96* 1.60* - - - - - 1.14 - - 1.20* 1.23* BUN 38* 31* 26 - - - - - 30* - - 17 17 WBC 36.4* 11.4* 7.9 - - - - - - - - 10.0 9.1 VANCORNDM - - - - - - - - 10.5 - - 20.9 19.2 VANCTROUGH - - - - 22.9* - 8.1* - - 16.5 - - - - = values in this interval not displayed. Loading Dose =1500 mg (Received 1 gm at [facility] on 10/10 @ 2024). Maintenance Dose = 1750 mg based on serial random level. Will obtain a trough prior to random with am labs tomorrow. Will monitor labs. Plan for next level: Date/time: 10/12 @ 040 Type: []Trough ; [x] Random ; [] Peak Ordered?: [x] Yes ; [] No Subjective / Objective José Miguel Keys is a 72 year old male. No chief complaint on file. Height: 5' 10.98 (180.3 cm) Wt 111.1 kg (244 lb 14.9 oz) Body mass index is 34.18 kg/m??. Serum creatinine: 2.7 mg/dL (H) 10/12/23 0503 Estimated creatinine clearance: 30.4 mL/min (A) Feliciano Kathleen, PharmD. documented in this encounter H&P Notes * Aaron Hook DO - 10/12/2023 5:23 AM CDT Internal Medicine History and Physical--Hospitalist Patient's Primary Care Physician: Provider Unknown Name: José Miguel Keys Age: [age] year old Sex: male Admit Date: 10/12/2023 Chief Complaint: No chief complaint on file. History of Present Illness: Patient José Miguel Keys is a 72 year old male with a history of atrial fibrillation, CHF, COPD, CKD,previous DVT, VALENTINA on BiPAP at night who was transferred to our facility secondary to sepsis of unknown origin. Patient presented to outside facility with complaints of shortness a breath that started approximately one week ago. He had been having an increased cough and sputum production since that time. He developed left leg pain and rash yesterday. Today he had fatigue and vomiting which prompted his visitto the outside ED. Lab work at the outside facility revealed WBCs 21.5, hemoglobin 13.0, hematocrit 42.0, platelets 115, PT 17.2, INR 1.3, PTT 30.4, sodium 138, potassium 4.6, chloride 102, CO2 28, BUN 33, creatinine 2.0 increased from a baseline of around 1.6, lactic acid 4.0 which did improve to 2.[address] scan at the outside facility showed gallbladder distention with gallstones in the gallbladder neck which could represent distension from fasting, acute cholecystitis or changes related to pancreatic inflammatory changes seen with pancreatitis. Patient was hypotensive and was started on pressors. Patient developed respiratory distress and didrequire intubation and mechanical ventilation prior to transfer to our facility. On arrival to our facility patient is intubated and sedated. Past Medical History: Past Medical History: Diagnosis Date Actinic keratosis Arthritis Asthma (HCC) Atrial fibrillation, chronic (HCC) Basal cell carcinoma CAD (coronary artery disease) Clotting disorder (HCC) Colitis COPD (chronic obstructive pulmonary disease) (HCC) Diabetes (HCC) DVT (deep venous thrombosis) (HCC) Dyslipidemia Eczema GERD (gastroesophageal reflux disease) Heart attack (HCC) High blood pressure Hx of blood clots Keloid Kidney disease Lentigo maligna melanoma (HCC) MRSA (methicillin resistant staph aureus) culture positive 07/29/2017; 02/04/19; 04/29/2019 07/29/17-Disc- tissue culture MRSA; R hip; nasal swab+ Obstructive sleep apnea VALENTINA (obstructive sleep apnea) Other cirrhosis of liver (HCC) Peripheral neuropathy Psoriasis S/P PICC central line placement 02/13/2019 [facility] VAT R basilic Seizures (HCC) Squamous cell carcinoma VRE (vancomycin resistant enterococcus) culture positive 04/29/2019 rectal swab+ Past Surgical History: Past Surgical History: Procedure Laterality Date Cataract Removal Bilateral ENDOSCOPY, UPPER N/A 09/15/2017 N/A; ESOPHAGOGASTRODUODENOSCOPY (EGD) DIAGNOSTIC ENDOSCOPY, UPPER N/A 07/03/2020 N/A; ESOPHAGOGASTRODUODENOSCOPY (EGD) DIAGNOSTIC--MARTINEZ ENDOSCOPY, UPPER N/A 10/07/2022 N/A; EGD w/ martinez ENDOSCOPY, UPPER N/A 05/12/2023 N/A; EGD w/ elbesh---stay on eliquis for procedure EXCISION BURSA Right 02/08/2019 Right; EXCISION BURSA (BURSECTOMY) TROCHANTERIC/HIP GENERAL SURGERY PROCEDURE Right 02/04/2019 Right; PLACEMENT WOUND VAC GENERAL SURGERY PROCEDURE Right 05/02/2019 Right; PLACEMENT WOUND VAC HIP ARTHROPLASTY, REVISION Right 02/08/2019 Right; REVISION HIP ARTHROPLASTY BOTH COMPONENT HX JOINT REPLACEMENT HX JOINT REPLACEMENT right hip 2005, left hip 2008 INCISION AND DRAINAGE Right 02/04/2019 Right; IRRIGATION AND DEBRIDEMENT WOUND HIP INCISION AND DRAINAGE Right 05/02/2019 Right; IRRIGATION AND DEBRIDEMENT RIGHT HIP ABSCESS Tracheostomy N/A 09/13/2017 N/A; TRACHEOSTOMY Social History: Social History Socioeconomic History Marital status: Spouse name: Not on file Number of children: Not on file Years of education: Not on file Highest education level: Not on file Occupational History Not on file Tobacco Use Smoking status: Former Types: Cigarettes Quit date: 06/06/1981 Years since quittin.3 Smokeless tobacco: Never Vaping Use Vaping Use: Never used Substance and Sexual Activity Alcohol use: No Drug use: No Sexual activity: Not on file Other Topics Concern Not on file Social History Narrative Merged History Encounter [place] war Social Determinants of Health Financial Resource Strain: Not on file Food Insecurity: Not on file Transportation Needs: Not on file Stress: Not on file Housing Stability: Not on file Family History: Family History Problem Relation Name Age of Onset CAD (Coronary Artery Disease) Mother age 65 Cirrhosis Father Cancer - Breast Neg Hx CVA Neg Hx Hemophilia Neg Hx Cancer - Other Neg Hx Eczema Neg Hx Psoriasis Neg Hx Cancer - Skin, Non Melanoma Neg Hx Cancer - Skin, Melanoma Neg Hx Allergies: 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 Tobramycin Eye Itching red around the eyes, puffy, itchy Medications: Current Facility-Administered Medications Medication Dose Route Frequency Provider Last Rate Last Admin albuterol-ipratropium (Duo-Neb) nebulizer solution 3 mL 3 mL Inhalation q6h Aaron Hook DO artificial tears ophthalmic ointment Each Eye q8h Nas Mcnally MD aspirin chew tablet 81 mg 81 mg Enteral Tube QDAY Nas Mcnally MD cefepime (Maxipime) 2,000 mg in 0.9% NaCl IV 50 mL IVPB 2 g Intravenous q12h Nas Mcnally MD chlorhexidine (Peridex) 0.12 % oral solution 15 mL 15 mL Mouth/Throat BID Nas Mcnally MD gabapentin (Neurontin) oral solution 100 mg 100 mg Enteral Tube AT BEDTIME Nas Mcnally MD heparin injection 5,000 Units 5,000 Units Subcutaneous q8h Nas Mcnally MD hydrocortisone sodium succinate PF (Solu-CORTEF) injection 100 mg 100 mg Intravenous q8h Nas Mcnally MD lactated ringers infusion Intravenous Continuous Nas Mcnally MD norepinephrine (Levophed) 8 mg/250 ml D5 infusion premix ADS Med norepinephrine (Levophed) 8 mg/250 ml D5 infusion premix 0-0.4 mcg/kg/min Intravenous Continuous Nas Mcnally MD pantoprazole (Protonix) injection 40 mg 40 mg Intravenous QDAY Nas Mcnally MD propofol (Diprivan) 1000 mg in 100 mL infusion ADS Med propofol (Diprivan) infusion 0-50 mcg/kg/min Intravenous Continuous Nas Mcnally MD vancomycin (Vancocin) IV dose per pharmacy Does not apply DIRECTED Nas Mcnally MD Medications Prior to Admission Medication Sig Dispense Refill acetaminophen (TYLENOL) 325 MG tablet Take 2 (two) tablets by mouth every 4 hours as needed albuterol (PROVENTIL;VENTOLIN) (5 MG/ML) 0.5% nebulizer solution 2.5 mg. (Patient taking differently: Inhale 0.5 mL by mouth 4 times daily) 1 Box 11 apixaban (ELIQUIS) 5 MG tablet Take 1 (one) tablet by mouth 2 times daily aspirin EC (ECOTRIN) 81 MG tablet Take 1 (one) tablet by mouth once daily baclofen (LIORESAL) 10 MG tablet Take 1 (one) tablet by mouth every evening May cause drowsiness. benzonatate (TESSALON) 200 MG capsule Take 1 capsule by mouth 3 times daily as needed for Cough BREZTRI AEROSPHERE 160-9-4.8 MCG/ACT AERO INHALE 2 PUFFS BY MOUTH EVERY MORNING AND EVERY EVENING bumetanide (BUMEX) 0.5 MG tablet Take 1 (one) tablet by mouth 2 times daily camphor-menthol (Sarna/Dermasarra) 0.5-0.5 % lotion APPLY LIBERALLY TO AFFECTED AREA(S) FOUR TIMES A DAY FOR ITCHING - (EXTERNAL USE ONLY) Cetirizine HCl (ZYRTEC PO) Take 10 mg by mouth daily with breakfast cyanocobalamin (VITAMIN B-12) 500 MCG tablet Take 1 (one) tablet by mouth once daily diclofenac sodium (Voltaren) 1 % gel APPLY 4 GM TO AFFECTED AREA(S) FOUR TIMES A DAY FOR PAIN DO NOT EXCEED MORE THAN 16 GRAMS DAILY TO ANY LOWER EXTREMITY JOINT. NOT MORE THAN 8 GRAMS DAILY TO ANY UPPER EXTREMITY JOINT. MAX 32GM/DAY OVER ALL JOINTS. (MEASURE DOSE WITH RULER ATTACHED INSIDE BOX) diphenhydrAMINE (BENADRYL) 25 MG capsule Take 1 (one) capsule by mouth every 6 hours as needed for Itching doxycycline hyclate (VIBRAMYCIN) 100 MG capsule Take 1 (one) capsule by mouth once daily ferrous sulfate 325 (65 FE) MG tablet Take 1 (one) tablet by mouth daily with breakfast folic acid (Folvite) 1 MG tablet Take 1 (one) tablet by mouth once daily (Patient not taking: Reported on 03/21/2023) gabapentin (NEURONTIN) 100 MG capsule Take 2 (two) capsules by mouth at bedtime lidocaine (Lidoderm) 5 % patch magnesium oxide (Mag-Ox) 400 MG tablet Take 1 (one) tablet by mouth 2 times daily metoprolol succinate XL 24hr (TOPROL XL) 50 MG tablet Take 1 (one) tablet by mouth once daily nystatin [id number] UNIT/GM cream - BACITRACIN ointment 50:50 CREA Apply to affected area 2 times dailyas needed (Patient not taking: Reported on 03/21/2023) omeprazole (PriLOSEC) 40 MG capsule TAKE 1 (ONE) CAPSULE BY MOUTH 2 TIMES DAILY, BEFORE BREAKFAST AND SUPPER REASONS: PEPTIC ULCER (Patient taking differently: Take 1 (one) capsule by mouth daily before breakfast Reasons: Peptic Ulcer) 30 capsule 3 Oxygen 1 L potassium chloride ER (KLOR-CON M) 20 MEQ tablet Take 1 (one) tablet by mouth once daily Pyridoxine HCl (VITAMIN B-6 PO) Take 100 mg by mouth once daily roflumilast (DALIRESP) 500 MCG tablet Take 1 (one) tablet by mouth once daily Skin Protectants, Misc. (BASIS FACIAL MOISTURIZER) CREA 1 Each by Apply externally route as needed Reasons: Dryness Confined to a Specific area of the Body, eyes Spacer/Aero-Holding Chambers ([facility]) MISC as directed spironolactone (Aldactone) 25 MG tablet Take 0.5 (one-half) tablet by mouth once daily tamsulosin (FLOMAX) 0.4 MG capsule Take 1 (one) capsule by mouth at bedtime 1 triamcinolone acetonide (KENALOG) 0.1 % cream Apply to affected area 3 times daily Apply to rash daily as needed. vitamin D3 (Cholecalciferol) 25 MCG (1000 UNITS) tablet Take 1 (one) tablet by mouth once daily Wt Readings from Last 3 Encounters: 10/12/23 111.1 kg (244 lb 14.9 oz) 05/12/23 111.1 kg (245 lb) 03/21/23 110.7 kg (244 lb) Review of Systems: Review of Systems Unable to perform ROS: Intubated Physical Exam: Vitals: 10/12/23 0500 10/12/23 0507 10/12/23 0515 10/12/23 0530 BP: 97/56 107/77 Pulse: (!) 111 93 Resp: 20 24 Temp: 98.9 ??F (37.2 ??C) SpO2: 95% 97% 97% Weight: 111.1 kg (244 lb 14.9 oz) Height: 1.803 m (5' 10.98 ) General appearance: Intubated and sedated Head: Normocephalic, without trauma Throat: no mucous membrane abnormalities Chest: no tenderness Lungs: Bilateral rales, coarse breath sounds bilaterally Heart: irregular rate and rhythm, normal S1 and S2, without murmurs, gallops or rubs Abdomen: soft without mass, non-tender, with normal bowel sounds Extremities: no clubbing or cyanosis, large area induration and erythema the left medial thigh Neurologic: Unable to assess Data: Admission labs, radiographic studies and ECG were reviewed, and are noted in the assessment and plan as needed. Recent Labs Component Name 10/12/23 0503 03/08/23 1347 08/23/222023 WBC 36.4* 11.4* 7.9 HGB 13.0* 12.6* 14.1 HCT 43.1 39.0 44.3 PLTCOUNT 113* 124* 129* 194 Recent Labs Component Name 10/12/23 0503 03/08/23 1347 08/23/22202308/10/22 1259 02/09/22 0921 08/03/21 1025 01/09/21 1055 09/05/20 1325 02/03/19 0106 09/19/17 0243 09/18/17 0003 SODIUM 139 141 - 141 - 139 137 140 - - - NA - - 141 - - - - - - 138 140 POTASSIUM 5.4* 4.4 4.6* 5.1 - 4.7 4.4 4.2 - 4.9* 3.4* CHLORIDE 108* 103 - 101 - 102 102 103 - - - CO2 22 24 26 29 - 27 26 28 - 34* 35* BUN 38* 31* 26 30* - 41* 50* 27* - 26 25 CREATININE 2.70* 1.96* 1.60* 1.74* - 1.89* 2.07* 1.46* - 0.6 0.6 GLUCOSE 140* 104 113 91 - 124* 144* 109* - 153* 135* CALCIUM 8.9 9.4 10.3* 10.1 - 9.6 9.7 9.9 - 9.1 9.0 EGFR 24* - 45* - - 35* 31* 48* - >60 >60 EGFRAFR - - - - - 40* 36* 55* - - - - = values in this interval not displayed. Recent Labs Component Name 10/12/23 0503 03/08/23 1347 08/23/22 2024 08/10/22 1259 09/05/20 1325 08/20/20 0000 02/03/19 0106 09/15/17 0441 09/11/17 0437 09/06/17 1157 09/04/17 0447 08/28/17 0521 08/27/17 0501 08/26/17 1420 08/26/17 1420 08/15/17 0348 ALBUMIN 3.0* 3.7 - 3.9 - - - - - - - - - - - - ALB - - 3.7 - - 3.7 - - - 1.8* 1.5* - 1.6* 1.6* - - 1.7* ALKPHOS 64 120 113 97 - 113 - - - 204* 190* - 323* 323* - - 231* ALT 17 20 27 26 - 19 - - - 10 - 23 - - 17 AST 24 27 24 18 - 14 - - - 21 27 - 29 29 - - 24 TBILI - - 0.6 - - - - - - 0.3 0.3 - 0.7 0.7 - - 0.5 DBILI - - - - - - - - - - - - 0.5 - - 0.3 TPROT 6.7 7.1 - 6.6 - 6.5 - - - - - - - - - - BNP - - - - - - - 694* 806* - - - - - 552* - - = values in this interval not displayed. No results found. Assessment and Plan: 1. Sepsis CT scan at outside facility however results were not sent with the patient. Concern for sepsis from cellulitis of the proximal left lower extremity. 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 Will cover with vancomycin at this time. Deescalate as appropriate. -consider CT scan of the left lower extremity if unable to obtain results from CT scan at the outside facility. 2. Shock -continue pressor support -consult to senior mechanical designer 3. Respiratory failure with hypoxia Acute respiratory failure hypoxia. Started after fluid resuscitation at the outside facility. Patient was intubated at outside facility. Concern for fluid overload in the setting of sepsis and fluid resuscitation for sepsis. -continue mechanical ventilation. Wean as tolerated. 4. COPD -breathing treatments scheduled -continue to monitor 5. Atrial fibrillation Patient is in atrial fibrillation on telemetry. Rate is currently controlled. -hold beta-fe secondary to shock -hold anticoagulation. Restart when appropriate. 6. CHF -obtain echocardiogram -hold diuretics secondary to shock. Restart when appropriate. 7. RADHA on CKD Creatinine 2.0 on admission. Reportedly baseline is around 1.6. -avoid nephrotoxic agents -avoid hypotension -continue to monitor I did discuss this patient with the outside ED provider. We discussed plan of care. Due to the severity of the patient's current illness, decision was made to admit the patient to ICU for further evaluation and care. Body mass index is 34.18 kg/m??. DVT prophylaxis: SCDs, heparin Prior Patient Diagnoses Present at the Time of Admission Fluid and electrolyte disorder: hyperkalemia requiring further monitoring Thrombocytopenia Thrombocytopenia requiring further monitoring Hypoalbuminemia requiring further monitoring Chronic kidney disease: Chronic Kidney Disease, Unspecified Cardiac arrhythmia: Atrial fibrillation, unspecified Congestive Heart Failure Shock: Severe sepsis with shock Obesity Patient receiving mechanical ventilation Aaron Hook DO 10/12/2023 5:56 AM I spent 30 minutes in the evaluation and care of this patient. Time spent includes time spent [id number] with the patient discussing the patient with the outside ED provider, discussing with the senior mechanical designer, discussing with nursing staff, ordering tests and reviewing results, reviewing notes and results from the outside ED. Time spent does not count other billable procedures. Portions of this note may be dictated using voice recognition software. Variances in spelling and vocabulary are possible and unintentional. Not all errors are caught/corrected. Please notify the author if any discrepancies are noted or if the meaning of any statement is not clear. These grammatical oversights have no impact on the medical care provided to the patient. documented in this encounter Procedure Notes * Yanira Macias MD - 10/20/2023 7:17 PM CDTAssociated Order(s): EEG [facility] Electroencephalogram Report PATIENT NAME: JOSÉ MIGUEL KEYS MR#: [id number] ROOM#: [id number] CSN: [id number] ADMISSION DATE: 10/12/2023 SEX: M : 1950 DATE OF TEST: 10/20/2023 EEG NUMBER: This is a routine 17-channel EEG tracing consisted of 16 channels of EEG and 1 channel of EKG monitoring performed on a 72-year-old patient presented with mental status changes. The condition of the patient during tracing was reported to be drowsy. Quality of the study was good. The background activity consisted of moderate amplitude 4-7 Hz theta rhythm. The background was poorly organized without good posterior to anterior gradient. Photic stimulation did not elicit any abnormalities. There were no epileptiform discharges noticed. The EKG tracing showed a regular heart rate. IMPRESSION: This is an abnormal EEG with generalized background slowing and poor organization, which is consistent with mild encephalopathy. There were no epileptiform discharges noticed. The above findings are nonspecific, which could be seen in the settings of metabolic, toxic, hypoxic, or infectious etiologies. Clinical correlation is suggested. DICTATOR: YANIRA MACIAS M.D. MP/MODL #: [id number] cc: Yanira Macias M.D. documented in this encounter Consult Notes * Radha Malone FORESTRY FIRE AIDE - 10/27/2023 8:11 AM CDTAssociated Order(s): IP CONSULT TO HAND TUBE WINDER Ss acknowledging consult rcd today 10/25 in, in [place]. SS already actively working with pts spouse re: [facility] facilites. Referrals already made/ others to be made. Spouse already has sscontact info for any questions/concerns. New Facility Referral Follow-up Level of Care (SNF/Medicaid NH/Rehab/Safety Lead Care/LTACH): snf referrals made. Ss awaiting assessments/ rtn calls. Other referrals to be made if below unable to accommodate. Referrals initiated: Continued Care and Services - Admitted Since 10/12/2023 Destination Service Provider Request Status Selected Services Address Phone Fax Patient Preferred [facility] Pending - Request Sent N/A [address] [address] [phone] -- [facility] Pending - Request Sent N/A LIZABETH ODONNELL [id number] -- If Medicare-3 day qualifying stay verified: pt has [employer] and will need an Auth for snf transfer cmHolly to obtain snf Auth once fac with approval with an available bed. monitoring facility responses Comments/changes:@ discharge nrsg to please send fac orders,chart and discharge summary. Below referrals made per spouse request. Ss discussed with spouse Trinity Keys @ [phone], [place] [employer] facilities (rcd list near pts hme from ss f/u with logistics team lead). Per cm team ? Sat/?Sund discharge when medically stable and Auth rcd. MD's following for medical stability and to advise when stable for discharge. Pt will be unable to transfer until Auth rcd and fac with approval with an available bed, and pt medically stable for transfer. Ss updated spouse pt was denied @ [facility]. Spouse has ss contact # and planned to look up reviews for other options and advise if with any changes in choices. SS spke with Nicolas with [facility] admissions she will advise ss if able to accommodate. Nicolas asked for ss contact # / provided. Ss awaiting rtn call. Continued Care and Services - Admitted Since 10/12/2023 Destination Service Provider Request Status Selected Services Address Phone Fax Patient Preferred [facility] Pending - Request Sent N/A LIZABETH ODONNELL [id number] -- [place] [facility])Pending - Request Sent N/A [address] [facility] [phone] -- Current Capacity last updated by Chantel Lepe on 04/28/2022 1237 [address] [facility] Pending - Request Sent N/A [address] [facility] [address] -- [facility] Declined Facility cannot provide for patient's needs, per admissions unable to accommodate. N/A [address], [facility] [id number] -- Name: CHRIS Garcia Phone: [phone] * Aneta Whittington MD - 10/25/2023 10:58 AM CDTAssociated Order(s): IP CONSULT TO CARDIOLOGY Subjective: Chief complaint: SOB, cough, vomiting, fatigue, left thigh pain José Miguel Keys is a 72 year old male who has a history of CAD, DM, prior PE/DVT, chronic Afib, VALENTINA,COPD, HTN, who presented to outside hospital 10/11 with complaints of one week history of SOB and productive cough, with left thigh pain with erythema, vomiting and fatigue the day prior to arrival. Given IVF at outside hospital and developed hypoxia. + RADHA. Has been confused. Echo with EF 45%- down. Noted to have 7 beat run of NSVT on tele, thus the consult. Patient denies abdominal pain, nausea, vomiting, diarrhea, constipation, urinary problems or leg pain. No palpitations, syncope, diaphoresis noted No fever, chills cough noted There is a family history of CAD. No contributing social history to illness. Past Medical History: Diagnosis Date Actinic keratosis Arthritis Asthma (HCC) Atrial fibrillation, chronic (HCC) Basal cell carcinoma CAD (coronary artery disease) Clotting disorder (HCC) Colitis COPD (chronic obstructive pulmonary disease) (HCC) Diabetes (HCC) DVT (deep venous thrombosis) (HCC) Dyslipidemia Eczema GERD (gastroesophageal reflux disease) Heart attack (HCC) High blood pressure Hx of blood clots Keloid Kidney disease Lentigo maligna melanoma (HCC) MRSA (methicillin resistant staph aureus) culture positive 07/29/2017; 02/04/19; 04/29/2019 07/29/17-Disc- tissue culture MRSA; R hip; nasal swab+ Obstructive sleep apnea VALENTINA (obstructive sleep apnea) Other cirrhosis of liver (HCC) Peripheral neuropathy Psoriasis S/P PICC central line placement 02/13/2019 [facility] VAT R basilic Seizures (HCC) Squamous cell carcinoma VRE (vancomycin resistant enterococcus) culture positive 04/29/2019 rectal swab+ Past Surgical History: Procedure Laterality Date Cataract Removal Bilateral ENDOSCOPY, UPPER N/A 09/15/2017 N/A; ESOPHAGOGASTRODUODENOSCOPY (EGD) DIAGNOSTIC ENDOSCOPY, UPPER N/A 07/03/2020 N/A; ESOPHAGOGASTRODUODENOSCOPY (EGD) DIAGNOSTIC--MARTINEZ ENDOSCOPY, UPPER N/A 10/07/2022 N/A; EGD w/ martinez ENDOSCOPY, UPPER N/A 05/12/2023 N/A; EGD w/ elbesh---stay on eliquis for procedure EXCISION BURSA Right 02/08/2019 Right; EXCISION BURSA (BURSECTOMY) TROCHANTERIC/HIP GENERAL SURGERY PROCEDURE Right 02/04/2019 Right; PLACEMENT WOUND VAC GENERAL SURGERY PROCEDURE Right 05/02/2019 Right; PLACEMENT WOUND VAC HIP ARTHROPLASTY, REVISION Right 02/08/2019 Right; REVISION HIP ARTHROPLASTY BOTH COMPONENT HX JOINT REPLACEMENT HX JOINT REPLACEMENT right hip 2005, left hip 2009 INCISION AND DRAINAGE Right 02/04/2019 Right; IRRIGATION AND DEBRIDEMENT WOUND HIP INCISION AND DRAINAGE Right 05/02/2019 Right; IRRIGATION AND DEBRIDEMENT RIGHT HIP ABSCESS Tracheostomy N/A 09/13/2017 N/A; TRACHEOSTOMY 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 Tobramycin Eye Itching red around the eyes, puffy, itchy Family History Problem Relation Name Age of Onset CAD (Coronary Artery Disease) Mother age 65 Cirrhosis Father Cancer - Breast Neg Hx CVA Neg Hx Hemophilia Neg Hx Cancer - Other Neg Hx Eczema Neg Hx Psoriasis Neg Hx Cancer - Skin, Non Melanoma Neg Hx Cancer - Skin, Melanoma Neg Hx albuterol-ipratropium (Duo-Neb) nebulizer solution 3 mL, Inhalation, q6h apixaban (Eliquis) tablet 5 mg, Oral, BID aspirin chew tablet 81 mg, Oral, QDAY docusate sodium (Colace) capsule 100 mg, Oral, BID doxycycline monohydrate capsule 100 mg, Oral, QDAY insulin aspart (NovoLOG) pen 0-12 Units, Subcutaneous, 4X/day - AC & HS lidocaine (Lidoderm) 5 % patch 1 patch, Transdermal, q24h magnesium sulfate 2 g in 50 mL bolus, Intravenous, Once metoprolol tartrate IR (Lopressor) tablet 25 mg, Oral, BID pantoprazole EC (Protonix) tablet 40 mg, Oral, QDAY rifAXIMin (Xifaxan) tablet 550 mg, Oral, BID senna-docusate (Senokot-S) tablet 1 tablet, Oral, QDAY venlafaxine (Effexor) tablet 37.5 mg, Oral, QDAY Review of Symptoms: Pertinent items are noted in HPI Subjective: Physical Exam Vitals: 10/25/23 0439 10/25/23 0749 10/25/23 0936 10/25/23 0957 BP: 149/79 113/63 Pulse: 96 88 92 Resp: 17 18 20 Temp: 98.2 ??F (36.8 ??C) 97.9 ??F (36.6 ??C) SpO2: 100% 98% 98% 96% Weight: Height: Intake/Output Summary (Last 24 hours) at 10/25/2023 1101 Last data filed at 10/25/2023 0627 Gross per 24 hour Intake 120 ml Output 950 ml Net -830 ml General appearance: alert, well appearing, and in no distress. CVS exam: normal rate, irregular rhythm, normal S1, S2 Chest: diminished breath sounds Abdominal exam: soft Exam of extremities: tr edema, left thigh erythema/swelling Neurological exam reveals alert, oriented, normal speech, no focal findings or movement disorder noted. SHEENT exam - supple, no significant adenopathy. No lesion, rashes, bruits, mucous membranes moist PERRLA, warm and dry Psychiatric, normal affect Musculoskeletal, good tone Review of Systems Constitutional: Negative for malaise. Eyes: Negative for visual blurring, diplopia. Ears, nose, mouth, and throat: + hearing loss. Respiratory: Negative for cough. Cardiovascular: Negative for palpitations, dizziness. Gastrointestinal: Negative for poor appetite. Skin: Negative for rash, bruising, varicose veins. Hematologic/lymphatic: Negative for weight loss, petechia, bleeding. Musculoskeletal:djd Neurological: Negative for headaches Behavioral/Psych: Negative for depressed mood, anxiety, delusions. Endocrine: Negative for polyphagia, polydipsia, hair loss, thyroid swelling. All other systems reviewed and are negative. The review of systems is unremarkable except as mentioned above. Cardiographics Echocardiogram: 10/12/2023: Left Ventricle: Not well visualized, but appears grossly normal in size. Definity enhanced images show complete opacification of the left ventricular cavity. Normal wall thickness. Mildly reduced systolic function. EF by 2D Moreno biplane is 45%. Normal wall motion. Unable to assess diastolic function due to abnormal rhythm. Right Ventricle: Right ventricle is mildly dilated. Mildly reduced systolic function. Aortic Valve: Mild regurgitation. Tricuspid Valve: Trace regurgitation. The pulmonary artery systolic pressure is normal (under 35 mmHg). Recent Labs Component Name 10/25/2341010/24/23 0510/23/23 0437 SODIUM 146* 144 142 POTASSIUM 3.9 3.6 3.6 CHLORIDE 115* 115* 114* CO2 23 21* 22 BUN 19 22 23 CREATININE 1.27* 1.29* 1.19 GLUCOSE 109* 101 104 CALCIUM 8.9 8.8 8.2* Recent Labs Component Name 10/25/2341010/24/23 0517 10/23/23 0437 WBC 14.5* 14.4* 15.2* HGB 11.7* 11.6* 11.6* HCT 38.2* 36.2* 37.0* PLTCOUNT 175 171 167 Recent Labs Component Name 10/17/23 1123 BNP 854* Readmission Risk Score: If there is no EVENTS ASSOCIATE Total Score indicated, this patient has yet to be assessed for Readmission Risk or the BNA Score was < 10. If the patient has been assessed, the score is: Chest Xray Improving minor retrocardiac opacity with small left pleural effusion. No overt cardiogenic edema Assessment: Septicemia Chronic Afib on Eliquis Run of NSVT Prior PE/DVT MICHAUD RADHA on CKD Dilated CM; EF 45% Plan: Fluid status per renal Supplement Mag Antibiotics per ID Continue BB, Eliqugorge Plan SNF on dc Aneta Whittington MD 10/25/2023 * Yanira Macias MD - 10/17/2023 4:38 PM CDTAssociated Order(s): IP CONSULT TO NEUROLOGY Neurology Consult Note Date of consult: 10/17/2023 Patient Name José Miguel Keys Admission Date 10/12/2023 Chief Complaint: Mental status changes History of Present Illness: Patient is a 72 year old male with a history of atrial fibrillation, on Eliquis,CHF, COPD, CKD, coronary artery disease, diabetes,previous DVT, VALENTINA on BiPAP at night who was transferred to our facility secondary to sepsis/ left thigh cellulitis. Patient presented to outside facility with complaintsof shortness a breath that started approximately one week prior to admission. He had been having anincreased cough and sputum production since that time. He developed left leg pain and rash. Patientwas hypotensive and was started on pressors. Patient developed respiratory distress and did requireintubation and mechanical ventilation prior to transfer to our facility. Rapid response called 10/16/2023 due to increased respiratory distress and mental status changes. 0.4mg narcan given as total of 60mg oxycodone has been given during the last 24 hours. ABG obtained. PH 7.31, CO2 61, HCO3 30.7. Moved to stepdown for bipap and further management. CT brain did not show acute process. 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 Tobramycin Eye Itching red around the eyes, puffy, itchy Family History Problem Relation Name Age of Onset CAD (Coronary Artery Disease) Mother age 65 Cirrhosis Father Cancer - Breast Neg Hx CVA Neg Hx Hemophilia Neg Hx Cancer - Other Neg Hx Eczema Neg Hx Psoriasis Neg Hx Cancer - Skin, Non Melanoma Neg Hx Cancer - Skin, Melanoma Neg Hx Social History Socioeconomic History Marital status: Spouse name: Not on file Number of children: Not on file Years of education: Not on file Highest education level: Not on file Occupational History Not on file Tobacco Use Smoking status: Former Types: Cigarettes Quit date: 06/06/1981 Years since quittin.3 Smokeless tobacco: Never Vaping Use Vaping Use: Never used Substance and Sexual Activity Alcohol use: No Drug use: No Sexual activity: Not on file Other Topics Concern Not on file Social History Narrative Merged History Encounter [place] war Social Determinants of Health Financial Resource Strain: Low Risk (10/14/2023) Overall Financial Resource Strain (CARDIA) Difficulty of Paying Living Expenses: Not hard at all Food Insecurity: No Food Insecurity (10/14/2023) Hunger Vital Sign Worried About Running Out of Food in the Last Year: Never true Ran Out of Food in the Last Year: Never true Transportation Needs: No Transportation Needs (10/14/2023) PRAPARE - Transportation Lack of Transportation (Medical): No Lack of Transportation (Non-Medical): No Stress: No Stress Concern Present (10/14/2023) [employer] - Occupational Stress Questionnaire Feeling of Stress : Only a little Housing Stability: Low Risk (10/14/2023) Housing Stability Vital Sign Unable to Pay for Housing in the Last Year: No Number of Places Lived in the Last Year: 1 Unstable Housing in the Last Year: No MEDICATIONS FOR CURRENT ENCOUNTER: SCHEDULED MEDICATIONS: And acetaminophen (Tylenol) tablet 1,000 mg, Oral, q8h albuterol-ipratropium (Duo-Neb) nebulizer solution 3 mL, Inhalation, q6h apixaban (Eliquis) tablet 5 mg, Oral, BID aspirin chew tablet 81 mg, Enteral Tube, QDAY cefTRIAXone (Rocephin) 2,000 mg in 0.9% NaCl IV 50 mL IVPB, Intravenous, q24h clindamycin (Cleocin) 900 mg in 50 mL D5W IVPB, Intravenous, q8h docusate sodium (Colace) capsule 100 mg, Oral, BID insulin aspart (NovoLOG) pen 0-12 Units, Subcutaneous, 4X/day - AC & HS lactulose (Chronulac) solution 20 g, Oral, 4X/day metoprolol tartrate IR (Lopressor) tablet 25 mg, Oral, BID pantoprazole EC (Protonix) tablet 40 mg, Oral, QDAY rifAXIMin (Xifaxan) tablet 550 mg, Oral, BID venlafaxine XR 24hr (Effexor XR) capsule 37.5 mg, Oral, QDAY WITH BREAKFAST [COMPLETED] calcium gluconate 10 % injection 1 g, Intravenous, Once [COMPLETED] dextrose 10 % IV bolus, Intravenous, Once [COMPLETED] furosemide (Lasix) injection 40 mg, Intravenous, Once [COMPLETED] insulin regular human (HumuLIN R; NovoLIN R) 100 UNIT/ML injection 5 Units, Intravenous, Once [COMPLETED] insulin regular human (HumuLIN R; NovoLIN R) 100 UNIT/ML injection 5 Units, Intravenous, Once [COMPLETED] naloxone (Narcan) injection 0.4 mg, Intravenous, Once [COMPLETED] naloxone (Narcan) injection 0.4 mg, Intravenous, Once CONTINUOUS MEDICATIONS: 0.9% NaCl flush bag, Intravenous, CONTINUOUS PRN dextrose 10 % IV bolus, Intravenous, Continuous dextrose 5 % infusion, Intravenous, Continuous PRN MEDICATIONS: Or Or 0.9% NaCl flush bag, Intravenous, CONTINUOUS PRN bisacodyl (Dulcolax) suppository 10 mg, Rectal, QDAY PRN dextrose 10 % IV bolus, Intravenous, PRN dextrose 10 % IV bolus, Intravenous, PRN glucagon (Glucagen) injection 1 mg, Subcutaneous, PRN glucose (Diabetic Use) oral gel, Oral, PRN ondansetron (Zofran) injection 4 mg, Intravenous, q4h PRN senna (Senokot) tablet 8.6 mg, Oral, BID PRN I have reviewed 10 points review system all other systems are negative except stated in HPI Symptoms within the past 90 days include those in bold type. Not able to obtain due to mental status changes General: Fatigue, fever, weight loss Skin: Rash, Itch Mouth: Dry Mouth Ears: loss of hearing, tinnitus Eyes: Changes in vision, double vision, droopy eyelid Neck: stiffness, pain Respiratory: Cough, short of breath Cardiac: Chest pain, palpitation GI: Nausea, vomiting, diarrhea, constipation : Difficulty urinating, frequent urination. Extremity: Cramps, muscle pain, joint pain Psych: Anxiety, depression Endo: Hyperglycemia, hypoglycemia Neuro: Headache, dizziness, seizure, weakness, numbness, memory loss, speech difficulty I have reviewed chart and the pertinent images and studies are personally reviewed Recent Labs Component Name 10/17/23 0358 WBC 16.7* HGB 11.7* HCT 38.0* PLTCOUNT 133* Recent Labs Component Name 10/17/23 1421 10/17/23 0336 10/16/23 2234 10/16/23 0355 10/15/23 0444 03/08/23 1347 08/23/22 2024 02/09/22 0921 08/03/21 1025 01/09/21 1055 09/05/20 1325 02/03/19 0106 09/19/17 0243 09/18/17 0003 SODIUM 154* 146* 149* 145 141 - - - 139 137 140 - - - NA - - - - - - 141 - - - - - 138 140 POTASSIUM 4.5 5.6* 4.9 4.8 5.2* - 4.6* - 4.7 4.4 4.2 - 4.9* 3.4* CHLORIDE 111* 115* 111* 111* 108* - - - 102 102 103 - - - CO2 31* 20* 30* 24 24 - 26 - 27 26 28 - 34* 35* BUN 92* 89* 93* 88* 81* - 26 - 41* 50* 27* - 26 25 CREATININE 2.34* 2.51* 2.65* 2.72* 2.95* - 1.60* - 1.89* 2.07* 1.46* - 0.6 0.6 GLUCOSE 91 107* 127* 112* 115* - 113 - 124* 144* 109* - 153* 135* CALCIUM 9.3 9.0 9.2 9.0 9.0 - 10.3* - 9.6 9.7 9.9 - 9.1 9.0 ALT - 53 - 52 44 - 27 - 28 24 - - - ALKPHOS - 73 - 65 65 - 113 - 106 119 126 - - - AST - 57* - 58* 58* - 24 - - - - TBIL - 0.5 - 0.5 0.5 - - - 0.6 0.9 0.8 - - - TPROT - 7.1 - 7.1 7.6 - - - 6.8 6.9 7.1 - - - EGFR 28* 26* 25* 24* 22* - 45* - 35* 31* 48* - >60 >60 EGFRAFR - - - - - - - - 40* 36* 55* - - - ALBUMIN 2.6* 2.5* - 2.5* 2.5* - - - 4.1 3.9 3.9 - - - - = values in this interval not displayed. Recent Labs Component Name 08/20/20 0000 CHOL 150 TRIG 73 HDL 45 Recent Labs Component Name 10/12/23 0503 03/08/23 1349 08/10/22 1259 INR 1.2* 1.0 1.1 EXAMINATION: BP 114/74 Pulse 88 Temp 97.8 ??F (36.6 ??C) (Axillary) Resp 15 Ht 1.803 m (5' 10.98 ) Wt 111.1 kg (245 lb) SpO2 97% Physical Exam General appearance: well developed, in no apparent distress Eyes: No discharges ENT: Normal hearing, no running nose CVS: S1 S2 heard. No murmurs or gallop heard. Resp: Has BiPAP Abd: Non tender, non distended and no evidence of organomegaly. Ext: Distal pulses are preserved, no edema Psychiatric: No agitation, not anxious Skin: Warm and dry Neuro Exam: Mental Status: drowsy, does not follow commands Speech: has BiPAP on, nonverbal Cranial Nerves: 1. (Cranial Nr 2) Fundii - Not able to test, pupil reactive to light 2. (Cranial Nr 3,4,6) Extra Ocular Movements - Intact 3. (Cranial Nr 5) Facial sensation - Equal Bilaterally 4. (Cranial Nr 7) Facial expression - No Facial Asymmetry 5. (Cranial Nr 8) Hearing - Intact to conversation and finger rub 6. (Cranial Nr 9, 10) Voice - No change in quality or pitch Palate - Elevates equally Gag - Present 7. (Cranial Nr 11) Elevate shoulder - Bilaterally without paralysis 8. (Cranial Nr 12) Tongue - No deviation or wasting Motor: has minimal spontaneous movements Sensation: withdrawal to pain Reflexes: DTRs Symmetric 1+ with plantar responses both sides Coordination/Cerebellar: not able to test Gait: not tested. Assessment: 1. Mental status changes Suspect metabolic encephalopathy secondary to infection and respiratory distress Neurologically would like to rule out seizure and embolic strokes CT brain without acute process 2. Septic shock Left thigh cellulitis Group G strep bacteremia 3. 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 RADHA on CKD 5. History of MICHAUD liver cirrhosis 6. COPD Plan: 1. EEG 2. Continue Eliquis and low dose of ASA 3. Pulmonology follows On BiPAP Follow up ABG 4. On Ceftriaxone and Cleocin 5. Ammonia level checked which is normal On Lactulose 6. Consider MRI brain if MS does not improve in the next 1-2 days 7. Follow up with mark Macias MD 10/17/2023 * Yanira Macias MD - 10/17/2023 2:05 PM CDT Neurology Impression: 1. Mental status changes Suspect metabolic encephalopathy secondary to infection and respiratory distress Neurologically would like to rule out seizure and embolic strokes CT brain without acute process 2. Septic shock Left thigh cellulitis Group G strep bacteremia 3. 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 RADHA on CKD 5. History of MICHAUD liver cirrhosis 6. COPD Plan: 1. EEG 2. Continue Eliquis and low dose of ASA 3. Pulmonology follows On CPAP Follow up ABG 4. ON Ceftriaxone and Cleocin 5. Ammonia level checked which is normal On Lactulose 6. Consider MRI brain if MS does not improve in the next 1-2 days 7. Follow up with exam * Tiffany Fortune MD - 10/17/2023 8:24 AM CDT Pulmonary Consult Note José Miguel Keys 1950 [id number] White/ No chief complaint on file. Requested By: Dr. Hook HPI 72-year-old gentleman initially admitted to the hospital on 10/12/2023 with cellulitis, and sepsis.Patient was found to have group G strep bacteremia, and has been on ceftriaxone. Patient underwent CT scan of the thigh which showed moderate cellulitis. He was also found to be in respiratory failure on initial admission, requiring intubation and mechanical ventilation. He was extubated on the same day-10/12/2023. During the hospitalization, patient was also found to have significant fluid overload, and has received intermittent diuretics. Over the last 24 hours, patient has become progressively more lethargic, was receiving narcotics, and was placed on BiPAP for acute hypercapnic respiratory acidosis. This morning, patient is on a Narcan drip, repeat blood gas does not show significant change. Patient remains very lethargic, opens eyes to painful stimulus, and sometimes to verbal stimulus as well.Intermittently answers simple questions. Past Medical History: Past Medical History: Diagnosis Date Actinic keratosis Arthritis Asthma (HCC) Atrial fibrillation, chronic (HCC) Basal cell carcinoma CAD (coronary artery disease) Clotting disorder (HCC) Colitis COPD (chronic obstructive pulmonary disease) (HCC) Diabetes (HCC) DVT (deep venous thrombosis) (HCC) Dyslipidemia Eczema GERD (gastroesophageal reflux disease) Heart attack (HCC) High blood pressure Hx of blood clots Keloid Kidney disease Lentigo maligna melanoma (HCC) MRSA (methicillin resistant staph aureus) culture positive 07/29/2017; 02/04/19; 04/29/2019 07/29/17-Disc- tissue culture MRSA; R hip; nasal swab+ Obstructive sleep apnea VALENTINA (obstructive sleep apnea) Other cirrhosis of liver (HCC) Peripheral neuropathy Psoriasis S/P PICC central line placement 02/13/2019 [facility] VAT R basilic Seizures (HCC) Squamous cell carcinoma VRE (vancomycin resistant enterococcus) culture positive 04/29/2019 rectal swab+ Social History Social History Socioeconomic History Marital status: Spouse name: Not on file Number of children: Not on file Years of education: Not on file Highest education level: Not on file Occupational History Not on file Tobacco Use Smoking status: Former Types: Cigarettes Quit date: 06/06/1981 Years since quittin.3 Smokeless tobacco: Never Vaping Use Vaping Use: Never used Substance and Sexual Activity Alcohol use: No Drug use: No Sexual activity: Not on file Other Topics Concern Not on file Social History Narrative Merged History Encounter [place] war Social Determinants of Health Financial Resource Strain: Low Risk (10/14/2023) Overall Financial Resource Strain (CARDIA) Difficulty of Paying Living Expenses: Not hard at all Food Insecurity: No Food Insecurity (10/14/2023) Hunger Vital Sign Worried About Running Out of Food in the Last Year: Never true Ran Out of Food in the Last Year: Never true Transportation Needs: No Transportation Needs (10/14/2023) PRAPARE - Transportation Lack of Transportation (Medical): No Lack of Transportation (Non-Medical): No Stress: No Stress Concern Present (10/14/2023) [employer] - Occupational Stress Questionnaire Feeling of Stress : Only a little Housing Stability: Low Risk (10/14/2023) Housing Stability Vital Sign Unable to Pay for Housing in the Last Year: No Number of Places Lived in the Last Year: 1 Unstable Housing in the Last Year: No Family History Family History Problem Relation Name Age of Onset CAD (Coronary Artery Disease) Mother age 65 Cirrhosis Father Cancer - Breast Neg Hx CVA Neg Hx Hemophilia Neg Hx Cancer - Other Neg Hx Eczema Neg Hx Psoriasis Neg Hx Cancer - Skin, Non Melanoma Neg Hx Cancer - Skin, Melanoma Neg Hx Current Medications: Current Facility-Administered Medications Medication Dose Route Frequency Provider Last Rate Last Admin 0.9% NaCl flush bag 250 mL Intravenous CONTINUOUS PRN Omi Fortune MD 3 mL/hr at 10/14/23 0842 250 mL at 10/14/23 0842 acetaminophen (Tylenol) tablet 1,000 mg 1,000 mg Oral q8h Omi Fortune MD 1,000 mg at 10/16/23 0544 albuterol-ipratropium (Duo-Neb) nebulizer solution 3 mL 3 mL Inhalation q6h Aaron Hook DO 3 mL at 10/17/23 0813 apixaban (Eliquis) tablet 5 mg 5 mg Oral BID Omi Fortune MD 5 mg at 10/16/23 0847 aspirin chew tablet 81 mg 81 mg Enteral Tube QDAY Nas Mcnally MD 81 mg at 10/16/23 0847 cefTRIAXone (Rocephin) 2,000 mg in 0.9% NaCl IV 50 mL IVPB 2 g Intravenous q24h Aneta Campbell DO 100 mL/hr at 10/17/23 0754 2,000 mg at 10/17/23 0754 clindamycin (Cleocin) 900 mg in 50 mL D5W IVPB 900 mg Intravenous q8h Lucía Castaneda DO Stoppedat 10/17/23 0647 dextrose 10 % IV bolus 250 mL Intravenous Continuous Aaron Hook DO dextrose 10 % IV bolus 12.5 g Intravenous PRN Halina Barraza MD Or dextrose 10 % IV bolus 25 g Intravenous PRN Halina Barraza MD Stopped at 10/17/23 0713 Or glucagon (Glucagen) injection 1 mg 1 mg Subcutaneous PRN Halina Barraza MD docusate sodium (Colace) capsule 100 mg 100 mg Oral BID Neetu Llanes MD 100 mg at 10/16/23 0847 furosemide (Lasix) injection 40 mg 40 mg Intravenous BID Omi Fortune MD 40 mg at 10/16/23 1641 glucose (Diabetic Use) oral gel Oral PRN Halina Barraza MD insulin aspart (NovoLOG) pen 0-12 Units 0-12 Units Subcutaneous 4X/day - AC & HS Halina Barraza MD 2 Units at 10/16/23 2331 metoprolol tartrate IR (Lopressor) tablet 25 mg 25 mg Oral BID Halina Barraza MD 25 mg at 846 naloxone (Narcan) 0.4 mg/ml injection ADS Med naloxone (Narcan) 4 mg in 0.9% NaCl IV 250 mL infusion 1 mg/hr Intravenous Continuous Aaron Hook DO 62.5 mL/hr at 10/17/23 0751 1 mg/hr at 10/17/23 0751 ondansetron (Zofran) injection 4 mg 4 mg Intravenous q4h PRN Halina Barraza MD 4 mg at 10/14/23 0057 pantoprazole EC (Protonix) tablet 40 mg 40 mg Oral QDAY Omi Fortune MD 40 mg at 10/16/23 0847 senna (Senokot) tablet 8.6 mg 8.6 mg Oral BID PRN Neetu Llanes MD venlafaxine XR 24hr (Effexor XR) capsule 37.5 mg 37.5 mg Oral QDAY WITH BREAKFAST Omi Fortune MD 37.5 mg at 10/16/23 0847 Allergies 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1* - 11.2* 10.8* HCT 38.0* 36.9* 39.1 - 35.0* 32.9* - 39.0 44.3 42.1 41.9 42.0 - 32.6* - 38.1 36.7 MCV 99.0* 98.7* 100.3* - 98.0 99.7* - 92.0 94.1 91.1 91.9 93.1 - 85.3 - 90.3 89.1 MCHC 30.8* 31.7 30.9* - 31.4* 31.0* - 32.3 31.8 32.5 32.7 32.9 - 31.0 - 29.4* 29.4* RDW - - - - - - - 12.8 14.9* 13.1 12.9 12.9 - - - - - RDWCV 16.5* 16.0* 15.7* - 15.7* 15.8* - - - - - - - 15.8* - 16.0* 15.9* PLTCOUNT 133* 128* 113* - 109* 86* - 129* 194 120* 136* 111* - 176 - 138* 143* NEUTPCT - - 85.3* - 90.4* 89.4* - - 64.1 - - - - 61.5 - 73.5* 63.3 LYMPHPCT - - 2.3* - 1.8* 1.5* - - - 8.6 10.9 12.7 - 11.9* - 6.1* 10.1* EOSINPCT - - - - - - - - - 4.4 5.4 6.1 - - - - - BASOPHILPCT - - - - - - - - - 0.6 0.9 0.7 - 0.6 - 0.6 0.8 GRANSIMMPCT - - - - - - - - - - - - - 0.4 - 0.4 0.5 LYMPHABS - 0.56* 0.58* - 0.48* 0.37* - - - - - - - 0.82* - 0.58* 0.66* BASOABS - - 0.02 - 0.05 0.06 - - - - - - - 0.04 - 0.06 0.05 NRBCAUTO 2.9* 1.8* 0.9* - - - - - - - - - - 0 - 0 0 - = values in this interval not displayed. BMP Recent Labs Component Name 10/17/23 0336 10/16/23 2234 10/16/23 0355 SODIUM 146* 149* 145 POTASSIUM 5.6* 4.9 4.8 CHLORIDE 115* 111* 111* CO2 20* 30* 24 BUN 89* 93* 88* CREATININE 2.51* 2.65* 2.72* GLUCOSE 107* 127* 112* CALCIUM 9.0 9.2 9.0 BNP Recent Labs Component Name 09/15/17 0441 09/11/17 0437 08/26/17 1420 BNP 694* 806* 552* TROP No results for input(s): TROPONIN in the last 54139 hours. INR Recent Labs Component Name 10/12/23 0503 03/08/23 1349 08/10/22 1259 INR 1.2* 1.0 1.1 LACTIC ACID Recent Labs Component Name 10/12/23 1136 10/12/23 0503 02/03/19 0413 LACTICACID 2.1* 2.6* 0.7 Recent Labs Component Name 10/17/23 0811 10/17/23 0420 10/17/23 0200 LIW4VMR 31.4* 31.4* 31.0* FIO2 40.0 40.0 40.0 XRAYS Reviewed Medical Records Reviewed: Exam BP 115/66 Pulse 81 Temp 97.9 ??F (36.6 ??C) (Axillary) Resp 20 Ht 1.803 m (5' 10.98 ) Wt 111.1 kg (245 lb) SpO2 100% Temp (30hrs) Max:98 ??F (36.7 ??C) Intake/Output Summary (Last 24 hours) at 10/17/2023 0824 Last data filed at 10/17/2023 0814 Gross per 24 hour Intake 612.63 ml Output 2875 ml Net -2262.37 ml General appearance: Minimally responsive, no distress Head: grossly unremarkable Chest: clear to auscultation CVS: regular rhythm Abdomen: soft without mass, non-tender Extremities: no edema Neurologic: no focal deficits Assessment/Plan: Acute hypercapnic respiratory failure: Patient is currently on BiPAP with an IPAP of 30 and EPAP of14 with 40 percent oxygen bled in. No significant change in blood gas since last night. Patient is tolerating BiPAP well. Will follow blood gas closely Altered mental status: Presumed to be secondary to hypercapnic respiratory failure. Consider EEG ifthere is no improvement despite treatment. Bilateral pleural effusion with attendant atelectasis: Will follow for now. Patient is on diureticsgiven anasarca. Follow chest x-ray. If there is no improvement, or in fact worsening, will order thoracentesis. Group G Streptococcus bacteremia per blood cultures at outside facility: Patient is currently on ceftriaxone and clindamycin. Id is following patient Excessive narcotic use during this hospitalization: Patient is on a Narcan drip Anasarca: Echocardiogram showed EF of 45 percent, patient is currently on Lasix 40 mg b.i.d.. CheckBNP, as patient is clinically less fluid overloaded. May need to decrease diuretics dose History of atrial fibrillation: Patient has been on beta-fe and Eliquis Code status: Full CC: Dr. [place] * Kalia Berry MD - 10/13/2023 10:03 AM CDTAssociated Order(s): IP CONSULT TO NEPHROLOGY Images from the original note were not included. Nephrology Consult Note Admit Date: 10/12/2023 4:19 AM Hospital Day: 1 Assessment: Acute kidney injury-ATN secondary shock status and hypotension + ELLIOTT -creatinine 2.94 on 10/12 -creatinine 1.8 08/2022 -creatinine baseline 1.5 since 2019 Hyperkalemia Metabolic acidosis Sepsis Possible lower extremity cellulitis Shock status-possibly sepsis Acute hypoxic respiratory failure History of COPD History of AFib History of CHF History of cirrhosis secondary to MICHAUD Full Code *PCP is Provider Unknown* Recommendations: Labs reviewed Active medications reviewed Serum creatinine not we worse than admission Serum potassium noted-treated with bicarb and Lokelma CO2 noted Lactic acid Monitor urine output closely Continue gentle IV fluid with bicarb-might not tolerate higher rate secondary to shortness of breath Check CK Check urine lytes Antibiotics per primary team Low-dose gabapentin Okay for now Surgical team consulted for lower extremity cellulitis Avoid hypotension Avoid further IV contrast and NSAIDs Renal panel this afternoon and in the morning No acute indication for dialysis yet unless his hyperkalemia was resistant to medical management and became anuric Medical decision making: High complexity D/w Dr Barraza and pt's RN Thanks for consult. Will follow. Patient: JOSÉ MIGUEL KEYS : 1950 MR # [id number] Reason for consult: Kidney injury Requesting: Aaron Hook DO HPI: The patient is a 72 year old male with PMH significant for multiple medical issues as below, including CKD, CHF, sleep apnea who was admitted to the ICU from an outside facility with respiratoryfailure and sepsis. Apparently started to have increasing shortness of breath and left leg pain for week. He was apparently hypotensive in the outside ER-labs showed acute kidney injury with elevated lactate. He received CT PE protocol and CT of the left lower extremity0 did not show any PE. Patient was started on IV fluids and IV antibiotics-he received 3 L of IV fluids for sepsis and wasstarted on vasopressor. Apparently the patient was intubated due to respiratory failure. His blood pressure is better. Had 960 cc urine output yesterday and 125 cc since this morning. Serum creatinine not much worsened yesterday, but potassium is elevated at 5.9 He is on sodium bicarbonate 50 cc an hour He was extubated yesterday PMH: Past Medical History: Diagnosis Date Actinic keratosis Arthritis Asthma (HCC) Atrial fibrillation, chronic (HCC) Basal cell carcinoma CAD (coronary artery disease) Clotting disorder (HCC) Colitis COPD (chronic obstructive pulmonary disease) (HCC) Diabetes (HCC) DVT (deep venous thrombosis) (HCC) Dyslipidemia Eczema GERD (gastroesophageal reflux disease) Heart attack (HCC) High blood pressure Hx of blood clots Keloid Kidney disease Lentigo maligna melanoma (HCC) MRSA (methicillin resistant staph aureus) culture positive 07/29/2017; 02/04/19; 04/29/2019 07/29/17-Disc- tissue culture MRSA; R hip; nasal swab+ Obstructive sleep apnea VALENTINA (obstructive sleep apnea) Other cirrhosis of liver (HCC) Peripheral neuropathy Psoriasis S/P PICC central line placement 02/13/2019 H VAT R basilic Seizures (HCC) Squamous cell carcinoma VRE (vancomycin resistant enterococcus) culture positive 04/29/2019 rectal swab+ PSH: Past Surgical History: Procedure Laterality Date Cataract Removal Bilateral ENDOSCOPY, UPPER N/A 09/15/2017 N/A; ESOPHAGOGASTRODUODENOSCOPY (EGD) DIAGNOSTIC ENDOSCOPY, UPPER N/A 07/03/2020 N/A; ESOPHAGOGASTRODUODENOSCOPY (EGD) DIAGNOSTIC--MARTINEZ ENDOSCOPY, UPPER N/A 10/07/2022 N/A; EGD w/ martinez ENDOSCOPY, UPPER N/A 05/12/2023 N/A; EGD w/ elbesh---stay on eliquis for procedure EXCISION BURSA Right 02/08/2019 Right; EXCISION BURSA (BURSECTOMY) TROCHANTERIC/HIP GENERAL SURGERY PROCEDURE Right 02/04/2019 Right; PLACEMENT WOUND VAC GENERAL SURGERY PROCEDURE Right 05/02/2019 Right; PLACEMENT WOUND VAC HIP ARTHROPLASTY, REVISION Right 02/08/2019 Right; REVISION HIP ARTHROPLASTY BOTH COMPONENT HX JOINT REPLACEMENT HX JOINT REPLACEMENT right hip 2005, left hip 2008 INCISION AND DRAINAGE Right 02/04/2019 Right; IRRIGATION AND DEBRIDEMENT WOUND HIP INCISION AND DRAINAGE Right 05/02/2019 Right; IRRIGATION AND DEBRIDEMENT RIGHT HIP ABSCESS Tracheostomy N/A 09/13/2017 N/A; TRACHEOSTOMY Home Meds: Prior to Admission Medications Prescriptions Last Dose Informant Patient Reported? Taking? SHAVONI AEROSPHERE 160-9-4.8 MCG/ACT AERO 10/11/2023 Yes Yes Sig: Inhale 2 (two) puffs by mouth 2 times daily Cetirizine HCl (ZYRTEC PO) Yes Yes Sig: Take 10 mg by mouth daily with breakfast DULoxetine (Cymbalta) 30 MG capsule 10/11/2023 Yes Yes Sig: Take 1 (one) capsule by mouth once daily Other Yes Yes Sig: (Patient uses variety of topicals...Eucerin, triamcinolone, hydrocortisone) Oxygen Yes No Si L Pyridoxine HCl (VITAMIN B-6 PO) at unknown Yes No Sig: Take 100 mg by mouth once daily acetaminophen (TYLENOL) 325 MG tablet Past Week Yes Yes Sig: Take 2 (two) tablets by mouth every 4 hours as needed albuterol HFA (Proventil; Ventolin; Proair) 108 (90 Base) MCG/ACT inhaler Past Week Yes Yes Sig: Inhale 2 (two) puffs by mouth as needed for Shortness of Breath albuterol-ipratropium (Duo-Neb) 0.5-2.5 (3) MG/3ML nebulizer solution 10/11/2023 Yes Yes Sig: Inhale 3 mL by mouth 4 times daily apixaban (ELIQUIS) 5 MG tablet 10/11/2023 Yes Yes Sig: Take 1 (one) tablet by mouth 2 times daily aspirin EC (ECOTRIN) 81 MG tablet at unknown Yes Yes Sig: Take 1 (one) tablet by mouth once daily baclofen (LIORESAL) 10 MG tablet 10/11/2023 Yes Yes Sig: Take 1 (one) tablet by mouth at bedtime May cause drowsiness. bumetanide (BUMEX) 0.5 MG tablet at unknown Yes Yes Sig: Take 1 (one) tablet by mouth 2 times daily cyanocobalamin (VITAMIN B-12) 500 MCG tablet Not Taking at unknown Yes No Sig: Take 1 (one) tablet by mouth once daily Patient not taking: Reported on 10/12/2023 doxycycline hyclate (VIBRAMYCIN) 100 MG capsule 10/11/2023 Yes Yes Sig: Take 1 (one) capsule by mouth once daily ferrous sulfate 325 (65 FE) MG tablet at unknown Yes Yes Sig: Take 1 (one) tablet by mouth daily with breakfast fluticasone propionate (Flonase) 50 MCG/ACT nasal spray 10/11/2023 Yes Yes Sig: [place] 1 (one) spray into each nostril once daily folic acid 400 MCG tablet at uniknown Yes Yes Sig: Take 1 (one) tablet by mouth once daily gabapentin (Neurontin) 300 MG capsule at unknown Yes Yes Sig: Take 1 (one) capsule by mouth 2 times daily lidocaine (Lidoderm) 5 % patch Not Taking Yes No Patient not taking: Reported on 10/12/2023 magnesium oxide (Mag-Ox) 400 MG tablet at unknown Yes Yes Sig: Take 1 (one) tablet by mouth 2 times daily metoprolol succinate XL 24hr (TOPROL XL) 50 MG tablet 10/11/2023 Patient Yes Yes Sig: Take 1 (one) tablet by mouth once daily omeprazole (PriLOSEC) 40 MG capsule at unknown Yes Yes Sig: Take 1 (one) capsule by mouth daily before breakfast potassium chloride ER (KLOR-CON M) 20 MEQ tablet 10/11/2023 Yes Yes Sig: Take 1 (one) tablet by mouth once daily roflumilast (DALIRESP) 500 MCG tablet 10/11/2023 Yes Yes Sig: Take 1 (one) tablet by mouth once daily spironolactone (Aldactone) 25 MG tablet 10/11/2023 Yes Yes Sig: Take 0.5 (one-half) tablet by mouth once daily tamsulosin (FLOMAX) 0.4 MG capsule at unknown Yes Yes Sig: Take 1 (one) capsule by mouth at bedtime vitamin D3 (Cholecalciferol) 25 MCG (1000 UNITS) tablet 10/11/2023 Yes Yes Sig: Take 1 (one) tablet by mouth once daily Facility-Administered Medications: None Meds: Or Or 0.9% NaCl infusion ADS Med, , albuterol-ipratropium (Duo-Neb) nebulizer solution 3 mL, Inhalation, q6h aspirin chew tablet 81 mg, Enteral Tube, QDAY cefTRIAXone (Rocephin) 2,000 mg in 0.9% NaCl IV 50 mL IVPB, Intravenous, q24h clindamycin (Cleocin) 900 mg in 50 mL D5W IVPB, Intravenous, q8h dextrose 10 % IV bolus, Intravenous, PRN dextrose 10 % IV bolus, Intravenous, PRN DULoxetine (Cymbalta) capsule 30 mg, Oral, QDAY gabapentin (Neurontin) oral solution 100 mg, Oral, AT BEDTIME glucagon (Glucagen) injection 1 mg, Subcutaneous, PRN glucose (Diabetic Use) oral gel, Oral, PRN hydrocortisone sodium succinate PF (Solu-CORTEF) injection 50 mg, Intravenous, q6h immune globulin (GAMUNEX-C) 10 % 40 g, Intravenous, Continuous insulin aspart (NovoLOG) pen 0-12 Units, Subcutaneous, q4h metoprolol tartrate IR (Lopressor) tablet 25 mg, Oral, BID pantoprazole (Protonix) injection 40 mg, Intravenous, QDAY sodium bicarbonate 8.4 % 75 mEq in 0.45% NaCl infusion (fluid), Intravenous, Continuous traMADol (Ultram) tablet 25 mg, Oral, q6h PRN vancomycin (Vancocin) IV dose per pharmacy, Does not apply, DIRECTED Allergies: 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 Tobramycin Eye Itching red around the eyes, puffy, itchy FH: Family History Problem Relation Name Age of Onset CAD (Coronary Artery Disease) Mother age 65 Cirrhosis Father Cancer - Breast Neg Hx CVA Neg Hx Hemophilia Neg Hx Cancer - Other Neg Hx Eczema Neg Hx Psoriasis Neg Hx Cancer - Skin, Non Melanoma Neg Hx Cancer - Skin, Melanoma Neg Hx SH: Social History Socioeconomic History Marital status: Spouse name: Not on file Number of children: Not on file Years of education: Not on file Highest education level: Not on file Occupational History Not on file Tobacco Use Smoking status: Former Types: Cigarettes Quit date: 06/06/1981 Years since quittin.3 Smokeless tobacco: Never Vaping Use Vaping Use: Never used Substance and Sexual Activity Alcohol use: No Drug use: No Sexual activity: Not on file Other Topics Concern Not on file Social History Narrative Merged History Encounter [place] war Social Determinants of Health Financial Resource Strain: Not on file Food Insecurity: Not on file Transportation Needs: Not on file Stress: Not on file Housing Stability: Not on file ROS: Not accurate secondary to his mental status PE: General: awake, cooperative Heart: regular rhythm, S1S2, without rub Lungs: breath sounds diminished; no wheezes or crackles; no distress at rest Abdomen: soft without mass, non-tender, with bowel sounds Extremities: no clubbing or cyanosis, no edema. Redness bilateral lower extremity-more indurated redness on the left upper thigh Circulation: no central access Genitalia: Cabral present Vitals: 10/13/23 0800 10/13/23 0900 10/13/23 0913 10/13/23 1000 BP: 126/74 134/93 (!) 139/103 Pulse: (!) 125 (!) 131 (!) 128 (!) 134 Resp: 27 14 22 9 Temp: SpO2: 95% 97% 96% 96% Weight: Height: Supplemental Oxygen (last filed value): O2 L/M: 2 (10/13/23 1000) Temp (30hrs) Max:99.3 ??F (37.4 ??C) Intake/Output Summary (Last 24 hours) at 10/13/2023 1003 Last data filed at 10/13/2023 0845 Gross per 24 hour Intake 1483.46 ml Output 1035 ml Net 448.46 ml Body mass index is 34.18 kg/m??. Admission weight: Weight: 111.1 kg (244 lb 14.9 oz) (10/12/23 0507) Most recent weight: Weight: 111.1 kg (244 lb 14.9 oz) (10/12/23 0507) Labs: Recent Labs Component Name 10/13/23 0346 10/12/23 1136 10/12/23 0503 02/03/19 0106 09/19/17 0243 SODIUM 136 137 139 - - POTASSIUM 5.9* 5.3* 5.4* - 4.9* CHLORIDE 106 107 108* - - CO2 18* 21* 22 - 34* BUN 58* 41* 38* - 26 CREATININE 2.94* 2.82* 2.70* - 0.6 GLUCOSE 117* 173* 140* - 153* CALCIUM 8.2* 8.4 8.9 - 9.1 ALBUMIN 2.4* 2.6* 3.0* - - PHOS - 3.7 3.1 - 2.5 - = values in this interval not displayed. Recent Labs Component Name 10/13/23 0346 10/12/23 1136 10/12/23 0503 EGFR 22* 23* 24* Recent Labs Component Name 10/13/23 0346 10/12/23 0503 09/19/17 0243 MAGNESIUM 1.8 1.6 1.7 No results for input(s): PTHINTACT , [id number] in the last 19525 hours. Recent Labs Component Name 04/23/17 1103 [id number] 11* Recent Labs Component Name 10/13/23 0346 10/12/23 0503 03/08/23 1347 WBC 25.5* 36.4* 11.4* HGB 10.2* 13.0* 12.6* HCT 32.9* 43.1 39.0 PLTCOUNT 86* 124* 113* 129* Recent Labs Component Name 02/04/19 0617 08/26/17 1420 COLORUA Yellow - SPECGRAVUA 1.021 - PHUA 5.0 6.0 PROTEINUA Negative - BLOODUA Negative - LEUKOCYTEUA Negative - NITRITEUA Negative - GLUCOSEUA Negative - KETONEUA Trace* - BILIRUBINUA Negative - UROBILINUA Negative <2.0 RBCUA - 1 * Radha Malone MSW - 10/12/2023 1:55 PM CDTAssociated Order(s): IP CONSULT TO HAND TUBE WINDER Ss acknowledging consult rcd today 10/11 in, in basket. Additional info to follow. New Facility Referrals Date of referral:rcd new 10/11. Admitted from: hme with spouse Special Needs: Covid guidelines for fac with approval must be met. 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 Family participation encouraged): ss spke with pts spousept currently in the ICU. Per spouse Trinity Keys @ [phone], if pt in need of snf @ time of discharge she is interested in a possible referral to below fac. [facility]. Ss with a call out to fac to try to f/u with admissions to see if fac with a contract with pts insurance [employer]. Ss awaiting rtn call .Mess to [facility] List of facilities provided (patient preference and geographic preference): ss discussed with pts spouse briefly spouse interested in possible fac near home where pt was in past. Fam aware ss awaiting rtn call from fac re: contracts. Once rtn call rcd, referral(s) can be sent. Additional info to follow. Referrals initiated: Continued Care and Services - Admitted Since 10/12/2023 Destination Service Provider Request Status Selected Services Address Phone Fax Patient Preferred [facility] Pending - No Request Sent N/A [address] [facility] [address] [id number] -- Prior Auth required? Yes/no: yes if to snf would need Auth once fac with approval with an availablebed. [facility] cm to obtain snf Auth if to snf prior to transfer. monitoring facility responses Comments:@ discharge nrsg to please send fac orders,chart and discharge summary if pt to a snf. CHRIS Garcia ext. [phone]. * Aneta Campbell DO - 10/12/2023 9:57 AM CDTAssociated Order(s): IP CONSULT TO INFECTIOUS DISEASES Infectious Diseases Consult Note Patient's Primary Care Physician: Provider Unknown Reason for Consultation: possible nec fasc Referring Physcian: Aaron Hook DO Name: José Miguel Keys Age: [age] year old Hospital Day: 0 Chief Complaint/History of Present Illness HPI: José Miguel Keys is a 72 year old male who was admitted on 10/12/2023 for further medical optimization for sepsis as transfer from [facility]. Went to [facility] with one week shortness of breath and one day redness to left thigh. WBC 21. Whilethere he decompensated, elevated lactic acid, got fluid resuscitation. Intubated prior to transfer.CT reports as below. Leg does not seem to have been imaged aside from venous doppler. Here he remains intubated. WBC now up to 36. On levophed. Worsening RADHA. Started on broad spectrum antibiotics. ID consulted for further evaluation. Objective: Past Medical History: Diagnosis Date Actinic keratosis Arthritis Asthma (HCC) Atrial fibrillation, chronic (HCC) Basal cell carcinoma CAD (coronary artery disease) Clotting disorder (HCC) Colitis COPD (chronic obstructive pulmonary disease) (HCC) Diabetes (HCC) DVT (deep venous thrombosis) (HCC) Dyslipidemia Eczema GERD (gastroesophageal reflux disease) Heart attack (HCC) High blood pressure Hx of blood clots Keloid Kidney disease Lentigo maligna melanoma (HCC) MRSA (methicillin resistant staph aureus) culture positive 07/29/2017; 02/04/19; 04/29/2019 07/29/17-Disc- tissue culture MRSA; R hip; nasal swab+ Obstructive sleep apnea VALENTINA (obstructive sleep apnea) Other cirrhosis of liver (HCC) Peripheral neuropathy Psoriasis S/P PICC central line placement 02/13/2019 [facility] VAT R basilic Seizures (HCC) Squamous cell carcinoma VRE (vancomycin resistant enterococcus) culture positive 04/29/2019 rectal swab+ Past Surgical History: Procedure Laterality Date Cataract Removal Bilateral ENDOSCOPY, UPPER N/A 09/15/2017 N/A; ESOPHAGOGASTRODUODENOSCOPY (EGD) DIAGNOSTIC ENDOSCOPY, UPPER N/A 07/03/2020 N/A; ESOPHAGOGASTRODUODENOSCOPY (EGD) DIAGNOSTIC--MARTINEZ ENDOSCOPY, UPPER N/A 10/07/2022 N/A; EGD w/ martinez ENDOSCOPY, UPPER N/A 05/12/2023 N/A; EGD w/ elbesh---stay on eliquis for procedure EXCISION BURSA Right 02/08/2019 Right; EXCISION BURSA (BURSECTOMY) TROCHANTERIC/HIP GENERAL SURGERY PROCEDURE Right 02/04/2019 Right; PLACEMENT WOUND VAC GENERAL SURGERY PROCEDURE Right 05/02/2019 Right; PLACEMENT WOUND VAC HIP ARTHROPLASTY, REVISION Right 02/08/2019 Right; REVISION HIP ARTHROPLASTY BOTH COMPONENT HX JOINT REPLACEMENT HX JOINT REPLACEMENT right hip 2006, left hip 2009 INCISION AND DRAINAGE Right 02/04/2019 Right; IRRIGATION AND DEBRIDEMENT WOUND HIP INCISION AND DRAINAGE Right 05/02/2019 Right; IRRIGATION AND DEBRIDEMENT RIGHT HIP ABSCESS Tracheostomy N/A 09/13/2017 N/A; TRACHEOSTOMY Social History Tobacco Use Smoking status: Former Types: Cigarettes Quit date: 06/06/1981 Years since quittin.3 Smokeless tobacco: Never Vaping Use Vaping Use: Never used Substance Use Topics Alcohol use: No Drug use: No Family History Problem Relation Name Age of Onset CAD (Coronary Artery Disease) Mother age 65 Cirrhosis Father Cancer - Breast Neg Hx CVA Neg Hx Hemophilia Neg Hx Cancer - Other Neg Hx Eczema Neg Hx Psoriasis Neg Hx Cancer - Skin, Non Melanoma Neg Hx Cancer - Skin, Melanoma Neg Hx 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 Tobramycin Eye Itching red around the eyes, puffy, itchy Immunization History Administered Date(s) Administered COVID MODERNA BIVALENT 12Y+ 50MCG/0.5ML 07/21/2022 COVID PFIZER 12+YR 30MCG/0.3mL 06/13/2023 Covid Pfizer primary monovalent 12+ yr 0.3mL Purple cap 06/25/2020, 07/16/2020, 03/15/2021 Exam Vitals: 10/12/23 0545 10/12/23 0600 10/12/23 0615 10/12/23 0800 BP: 99/64 89/67 95/58 Pulse: 89 99 95 Resp: Temp: 99.3 ??F (37.4 ??C) SpO2: 97% 97% 99% Weight: Height: Temp (30hrs) Max:99.3 ??F (37.4 ??C) General appearance: NAD HEENT: nc/at, sclera anicteric, mucosa moist/no lesion Lungs: non-labored, CTAB Heart: normal rate, regular rhythm, S1, S2 normal, no m/r/g Abdomen: soft, obese, nt/nd, no involuntary guarding, bowel sounds present Extremities: chronic stasis changes b/l Skin: L inner thigh red, tender, indurated. No perineal induration Neuro: opens eyes when palpating left inner thigh Lines: PIV: CVC: R IJ 10/10 Cabral: MEDICATIONS FOR CURRENT ENCOUNTER: SCHEDULED MEDICATIONS: albuterol-ipratropium (Duo-Neb) nebulizer solution 3 mL, Inhalation, q6h artificial tears ophthalmic ointment, Each Eye, q8h aspirin chew tablet 81 mg, Enteral Tube, QDAY cefepime (Maxipime) 2,000 mg in 0.9% NaCl IV 50 mL IVPB, Intravenous, q12h chlorhexidine (Peridex) 0.12 % oral solution 15 mL, Mouth/Throat, BID clindamycin (Cleocin) 900 mg in 50 mL D5W IVPB, Intravenous, q8h gabapentin (Neurontin) oral solution 100 mg, Enteral Tube, AT BEDTIME heparin injection 5,000 Units, Subcutaneous, q8h hydrocortisone sodium succinate PF (Solu-CORTEF) injection 100 mg, Intravenous, q8h pantoprazole (Protonix) injection 40 mg, Intravenous, QDAY vancomycin (Vancocin) IV dose per pharmacy, Does not apply, DIRECTED [COMPLETED] sodium zirconium cyclosilicate (Lokelma) packet 10 g, Enteral Tube, Once [COMPLETED] vancomycin (Vancocin) 1,500 mg in 530 mL IVPB, Intravenous, Once Data Recent Labs Component Name 10/12/23 05003/08/23134608/23/222023 WBC 36.4* 11.4* 7.9 HGB 13.0* 12.6* 14.1 HCT 43.1 39.0 44.3 PLTCOUNT 124* 113* 129* 194 Recent Labs Component Name 10/12/23 05003/08/23134608/23/22202308/10/22 1259 SODIUM 139 141 - 141 POTASSIUM 5.4* 4.4 4.6* 5.1 CHLORIDE 108* 103 - 101 CO2 22 24 26 29 BUN 38* 31* 26 30* CREATININE 2.70* 1.96* 1.60* 1.74* GLUCOSE 140* 104 113 91 CALCIUM 8.9 9.4 10.3* 10.1 Recent Labs Component Name 10/12/23 0503 03/08/23134608/23/22202308/10/22 1259 ALBUMIN 3.0* 3.7 - 3.9 ALKPHOS 64 120 113 97 ALT 17 27 26 AST 18 TBIL 1.6* 0.6 - 0.9 TPROT 6.7 7.1 - 6.6 Recent Labs Component Name 04/24/19 1141 SEDRATE 70* No results for input(s): CK in the last 16364 hours. Recent Labs Component Name 02/03/19 0106 07/14/17 2212 HGBA1C 5.8 6.3 Recent Labs Component Name 02/04/19 0617 08/26/17 1420 COLORUA Yellow - CLARITYUA Cloudy* - SPECGRAVUA 1.021 - PHUA 5.0 6.0 PROTEINUA Negative - BLOODUA Negative - LEUKOCYTEUA Negative - NITRITEUA Negative - GLUCOSEUA Negative - KETONEUA Trace* - BILIRUBINUA Negative - UROBILINUA Negative <2.0 RBCUA - 1 Recent Labs Component Name 08/23/22 2024 04/24/19 1140 08/15/17 0348 CRP 1.8* 1.41* 4.1* Recent Labs Component Name 09/07/17 0428 08/27/17 0747 08/12/17 0525 PROCALCITON 0.47 0.26 0.40 Microbiology Blood culture ?10/10 Dandre 10/11 pending Radiology 10/10 CXR: Mild interstitial edema vs senescent change 10/10 Venous Doppler LLE: No DVT 10/10 CTA Chest: Distended gallbladder, cholelithiasis. No PE 10/10 CT A/P wo: stone in gallbladder neck. L1-2 fusion. 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, on chronic suppressive doxycycline 100mg BID Afib, hx of DVT on eliquis BPH on flomax RADHA on CKD MICHAUD and cirrhosis with small lower esophageal varices on 2022 EGD, portal hypertensive gastropathy Hx of PUD with bleeding COPD Obesity, BMI 34 Plan -Continue vanc per pharmacy, cefepime 2g q12h for renal function, flagyl 500mg q8h, adjunctive clindamycin 900mg q8h -I think left thigh needs I&D in OR as there is no other clear source for sepsis and area is exquisitely tender -Follow blood cultures -Check lipase based on outside CT although doubt pancreatitis -Monitor liver enzymes due to gallstones but wnl on admit so doubt cholecystitis -Check CK and CRP Discussed with senior mechanical designer, Dr Barraza Addendum: -Discussed with surgery,Dr Jamison, he reviewed CT scan of LLE here and no finding of gas, abscess,necrosis, does not think surgery would be beneficial at this time -Outside cultures reported as GPC pairs/chains. Given his degree of sepsis concern for Group A Streptococcal toxic shock (criteria: shock with derm finding plus borderline renal and hematologic criteria) will start adjunctive IVIG 1g/kg today and then 0.5g/kg day #2 and 3. -Depending on further culture data may be able to narrow antibiotics in the next day or two Aneta Campbell DO For quickest response please use [employer] Office: [phone] * Jody Miranda, CENTRAL OFFICE SUPERVISOR-BRIDGE REPAIR CREW PERSON - 10/12/2023 8:32 AM CDTAssociated Order(s): IP CONSULT TO GENERAL SURGERY Images from the original note were not included. Surgery Consult Patient José Miguel Keys Date of admit 10/12/2023 Date 10/12/2023 Consulting Physician Halina Barraza MD Reason for Consult thigh cellulitis, possible nec fasc CC sepsis Hx obtained from chart, pt intubated and sedated .HPI: Patient is a 72 year old male with PMH actinic keratosis, arthritis, atrial fibrillation on eliquis, CAD s/p SC, clotting disorder, COPD, DM, DVT, HLD, eczema, GERD, lentigo melinga melanoma, VALENTINA, cirrhosis of liver, peripheral neuropathy, psoriasis, squamous cell carcinoma who presented to OSH with c/o SOB x 1 week, with productive cough, he developed left leg rash and pain 2 days ago with vomiting, pt worsened requiring intubation, he was hypotensive without improvement after fluid challenge so pressors were started, pt transferred to [facility] for further care No CT discs or reports were sent Surgery consulted for concern for necrotizing fasciitis Past Medical History: Diagnosis Date Actinic keratosis Arthritis Asthma (HCC) Atrial fibrillation, chronic (HCC) Basal cell carcinoma CAD (coronary artery disease) Clotting disorder (HCC) Colitis COPD (chronic obstructive pulmonary disease) (HCC) Diabetes (HCC) DVT (deep venous thrombosis) (HCC) Dyslipidemia Eczema GERD (gastroesophageal reflux disease) Heart attack (HCC) High blood pressure Hx of blood clots Keloid Kidney disease Lentigo maligna melanoma (HCC) MRSA (methicillin resistant staph aureus) culture positive 07/29/2017; 02/04/19; 04/29/2019 07/29/17-Disc- tissue culture MRSA; R hip; nasal swab+ Obstructive sleep apnea VALENTINA (obstructive sleep apnea) Other cirrhosis of liver (HCC) Peripheral neuropathy Psoriasis S/P PICC central line placement 02/13/2019 [facility] VAT R basilic Seizures (HCC) Squamous cell carcinoma VRE (vancomycin resistant enterococcus) culture positive 04/29/2019 rectal swab+ Past Surgical History: Procedure Laterality Date Cataract Removal Bilateral ENDOSCOPY, UPPER N/A 09/15/2017 N/A; ESOPHAGOGASTRODUODENOSCOPY (EGD) DIAGNOSTIC ENDOSCOPY, UPPER N/A 07/03/2020 N/A; ESOPHAGOGASTRODUODENOSCOPY (EGD) DIAGNOSTIC--MARTINEZ ENDOSCOPY, UPPER N/A 10/07/2022 N/A; EGD w/ martinez ENDOSCOPY, UPPER N/A 05/12/2023 N/A; EGD w/ elbesh---stay on eliquis for procedure EXCISION BURSA Right 02/08/2019 Right; EXCISION BURSA (BURSECTOMY) TROCHANTERIC/HIP GENERAL SURGERY PROCEDURE Right 02/04/2019 Right; PLACEMENT WOUND VAC GENERAL SURGERY PROCEDURE Right 05/02/2019 Right; PLACEMENT WOUND VAC HIP ARTHROPLASTY, REVISION Right 02/08/2019 Right; REVISION HIP ARTHROPLASTY BOTH COMPONENT HX JOINT REPLACEMENT HX JOINT REPLACEMENT right hip 2005, left hip 2008 INCISION AND DRAINAGE Right 02/04/2019 Right; IRRIGATION AND DEBRIDEMENT WOUND HIP INCISION AND DRAINAGE Right 05/02/2019 Right; IRRIGATION AND DEBRIDEMENT RIGHT HIP ABSCESS Tracheostomy N/A 09/13/2017 N/A; TRACHEOSTOMY Medications Prior to Admission Medication Sig Dispense Refill acetaminophen (TYLENOL) 325 MG tablet Take 2 (two) tablets by mouth every 4 hours as needed albuterol HFA (Proventil; Ventolin; Proair) 108 (90 Base) MCG/ACT inhaler Inhale 2 (two) puffs by mouth every 6 hours apixaban (ELIQUIS) 5 MG tablet Take 1 (one) tablet by mouth 2 times daily ascorbic acid (Vitamin C) 500 MG tablet Take 1 (one) tablet by mouth once daily aspirin EC (ECOTRIN) 81 MG tablet Take 1 (one) tablet by mouth once daily baclofen (LIORESAL) 10 MG tablet Take 1 (one) tablet by mouth at bedtime May cause drowsiness. benzonatate (TESSALON) 200 MG capsule Take 1 capsule by mouth 3 times daily as needed for Cough BREZTRI AEROSPHERE 160-9-4.8 MCG/ACT AERO Inhale 2 (two) puffs by mouth 2 times daily bumetanide (BUMEX) 0.5 MG tablet Take 1 (one) tablet by mouth 2 times daily camphor-menthol (Sarna/Dermasarra) 0.5-0.5 % lotion APPLY LIBERALLY TO AFFECTED AREA(S) FOUR TIMES A DAY FOR ITCHING - (EXTERNAL USE ONLY) Cetirizine HCl (ZYRTEC PO) Take 10 mg by mouth daily with breakfast cyanocobalamin (VITAMIN B-12) 500 MCG tablet Take 1 (one) tablet by mouth once daily diclofenac sodium (Voltaren) 1 % gel APPLY 4 GM TO AFFECTED AREA(S) FOUR TIMES A DAY FOR PAIN DO NOT EXCEED MORE THAN 16 GRAMS DAILY TO ANY LOWER EXTREMITY JOINT. NOT MORE THAN 8 GRAMS DAILY TO ANY UPPER EXTREMITY JOINT. MAX 32GM/DAY OVER ALL JOINTS. (MEASURE DOSE WITH RULER ATTACHED INSIDE BOX) diphenhydrAMINE (BENADRYL) 25 MG capsule Take 1 (one) capsule by mouth 2 times daily doxycycline hyclate (VIBRAMYCIN) 100 MG capsule Take 1 (one) capsule by mouth once daily DULoxetine (Cymbalta) 30 MG capsule Take 1 (one) capsule by mouth once daily ferrous sulfate 325 (65 FE) MG tablet Take 1 (one) tablet by mouth daily with breakfast fluticasone propionate (Flonase) 50 MCG/ACT nasal spray [place] 1 (one) spray into each nostril once daily folic acid 400 MCG tablet Take 1 (one) tablet by mouth once daily gabapentin (NEURONTIN) 100 MG capsule Take 3 (three) capsules by mouth 2 times daily lidocaine (Lidoderm) 5 % patch magnesium oxide (Mag-Ox) 400 MG tablet Take 1 (one) tablet by mouth 2 times daily metoprolol succinate XL 24hr (TOPROL XL) 50 MG tablet Take 1 (one) tablet by mouth once daily miconazole (Micatin) 2 % cream Apply to affected area 2 times daily nystatin (Mycostatin) 217564 UNIT/GM powder Apply to affected area 4 times daily omeprazole (PriLOSEC) 40 MG capsule Take 1 (one) capsule by mouth daily before breakfast Oxygen 1 L polyethylene glycol 3350 (Miralax) 17 g packet Take 17 (seventeen) g by mouth once daily as needed for Constipation potassium chloride ER (KLOR-CON M) 20 MEQ tablet Take 1 (one) tablet by mouth once daily Pyridoxine HCl (VITAMIN B-6 PO) Take 100 mg by mouth once daily roflumilast (DALIRESP) 500 MCG tablet Take 1 (one) tablet by mouth once daily spironolactone (Aldactone) 25 MG tablet Take 0.5 (one-half) tablet by mouth once daily tamsulosin (FLOMAX) 0.4 MG capsule Take 1 (one) capsule by mouth at bedtime 1 triamcinolone acetonide (KENALOG) 0.1 % cream Apply to affected area 2 times daily as needed Apply to rash daily as needed. 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 Tobramycin Eye Itching red around the eyes, puffy, itchy Social History Tobacco Use Smoking status: Former Types: Cigarettes Quit date: 06/06/1981 Years since quittin.3 Smokeless tobacco: Never Substance Use Topics Alcohol use: No Family History Problem Relation Name Age of Onset CAD (Coronary Artery Disease) Mother age 65 Cirrhosis Father Cancer - Breast Neg Hx CVA Neg Hx Hemophilia Neg Hx Cancer - Other Neg Hx Eczema Neg Hx Psoriasis Neg Hx Cancer - Skin, Non Melanoma Neg Hx Cancer - Skin, Melanoma Neg Hx Review of Systems Unable to obtain Objective: Patient Vitals for the past 8 hrs: BP Temp Temp src Pulse Resp SpO2 Height Weight 10/12/23 0800 no documentation 99.3 ??F (37.4 ??C) Axillary no documentation no documentation no documentation no documentation no documentation 10/12/23 0615 95/58 no documentation no documentation 95 24 99 % no documentation no documentation 10/12/23 0600 89/67 no documentation no documentation 99 24 97 % no documentation no documentation 10/12/23 0545 99/64 no documentation no documentation 89 25 97 % no documentation no documentation 10/12/23 0530 107/77 no documentation no documentation 93 24 97 % no documentation no documentation 10/12/23 0515 no documentation no documentation no documentation no documentation no documentation 97 % no documentation no documentation 10/12/23 0507 no documentation no documentation no documentation no documentation no documentation no documentation 1.803 m (5' 10.98 ) 111.1 kg (244 lb 14.9 oz) 10/12/23 0500 97/56 98.9 ??F (37.2 ??C) Axillary (Abnormal) 111 20 95 % no documentation no documentation 10/12/23 0445 97/56 no documentation no documentation 93 20 99 % no documentation no documentation 10/12/23 0430 98/59 no documentation no documentation 91 20 no documentation no documentation no documentation General appearance: appears ill HEENTN PERRL, ETT in place, oropharynx no erythema, trachea midline, Respiratory: lung sounds coarse Cardiovascular: heart regular rhythm, without murmurs, gallops or rubs, Gastrointestinal: soft, non-tender, with normal bowel sounds Ext + femoral pulses, bilat lower extremities sheila from knee distal, feet warm, moves legs to painful stimulation Integumentary: left upper thigh with rash and erythema and induration, no fluctuance, Psychiatric: withdraws to painful stimuli Data Review Recent Labs Component Name 10/12/23 0503 SODIUM 139 POTASSIUM 5.4* CHLORIDE 108* CO2 22 BUN 38* CREATININE 2.70* GLUCOSE 140* CALCIUM 8.9 ALBUMIN 3.0* ALKPHOS 64 ALT 17 AST 24 TBIL 1.6* TPROT 6.7 EGFR 24* Recent Labs Component Name 10/12/23 0503 03/08/23 1347 08/23/222023 WBC 36.4* 11.4* 7.9 HGB 13.0* 12.6* 14.1 HCT 43.1 39.0 44.3 PLTCOUNT 124* 113* 129* 194 Imaging: PROCEDURE: CT FEMUR LEFT WO CONTRAST DATE/TIME OF EXAM: 10/12/2023 10:00 AM CLINICAL INFORMATION: None relevant/not provided if blank. Indication: A41.89: Other specified sepsis (HCC) Additional History: Pain and swelling in left thigh COMPARISON: None. TECHNIQUE: CT of the left femur was performed utilizing standard protocol. CT dose reduction technique was used, including Automated Exposure Control. FINDINGS: There is a small left knee joint effusion. Severe degenerative change is seen in all 3 compartments of the left knee. There is moderate edema in the skin and subcutaneous soft tissues along the medial aspect of the left thigh consistent with a moderate cellulitis. No gas is seen in the soft tissues. No inflammatory change is seen in the fascial planes between the muscles of the left thigh. There is no evidence for a drainable abscess. No swelling of the muscles in the left thigh is seen. There is a left total hip arthroplasty. No evidence for a hardware complication. IMPRESSION: There is a moderate cellulitis in the skin and subcutaneous soft tissues along the medial aspect of the left thigh. No gas is seen in the soft tissues. No drainable abscess collection is seen. No evidence for inflammatory change in the fascial planes of the left thigh. 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 Old records were reviewed Assessment / Plan 72yo male, transferred from OSH with sepsis, rash and erythema to left upper thigh, lab work reviewed Left thigh cellulitis CT showed ID following IV abx NPO Pain control No plans for immediate surgical intervention Will follow closely Jody Miranda APRN-BRIDGE REPAIR CREW PERSON Cc Provider Unknown Associated attestation - Jorge Jamison DO - 10/13/2023 11:40 AM CDT Patient seen and examined with CUT OFF TENDER GLASS. Chart, labs, and imaging reviewed by me. Please see CUT OFF TENDER GLASS note for further details. I was present for the glaser portions of any procedures performed and always available. I confirm history, exam, assessment and plan with the following exceptions/additions: Called for concern for necrotizing fasciitis. Patient has lower extremity cellulitis and is in septic shock so there was a concern for necrotizing fasciitis. I The patient's physical exam showed erythema and induration. There was no fluctuance or any other area to drain. There was no crepitus. I did obtain a CT scan however to confirm no gas within the wound. This is simply a soft tissue infection associated with cellulitis. No surgical intervention required. Management per medical team. Jorge Stringer DO Shaheen 10/13/2023 11:39 AM General Surgeon, Surgical Arts [facility] Office: [phone] [facility] Office: [phone] Exchange: [phone] * Nas Mcnally MD - 10/12/2023 4:26 AM CDT Critical Care Consult Note Date of Consult: 10/12/2023 Name: José Miguel Keys Age: [age] year old Gender: male Reason for Consultation: Sepsis, respiratory failure Chief Complaint/History of Present Illness: 72 y/o male with history of atrial fibrillation, HTN, CHF, COPD, CKD, VALENTINA admitted to the ICU from an outside facility with sepsis and respiratory failure. The patient is unable to provide a history.The history is obtained from the existing chart. The patient presented to an outside ED complainingof SOB and left leg pain that had been present for approximately a week. He had also noted a rash on his left thigh in the few days prior to admission. In the outside ED the patient was initially hypotensive. Laboratory evaluation demonstrated significant leukocytosis, RADHA, elevated serum lactate, mild thrombocytopenia, borderline serum troponin, and markedly elevated BNP. SARS-CoV-2, influenza and RSV were negative. A CT chest with PE protocol, CT of the LLE, and CT of the abdomen and pelvis were performed. Per outside records, there was no evidence of PE or LLE DVT. There was gallbladder distention noted on the abdominal study, though it was otherwise unremarkable. EKG demonstrated atrialfibrillation without concerning ischemic changes. The patient was treated with broad-spectrum antibiotic coverage and volume resuscitation totaling 3 liters, though remained hypotensive and so was started on vasopressor support. Transfer here was then requested. Prior to departing the outside facility, the patient had progressively worsening SOB and was intubated without incident. 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 The patient remains on doxycycline for chronic suppression. 2. Atrial fibrillation 3. HTN 4. CHF LVEF 55% by echocardiogram 04/2019 5. COPD Chronic hypoxemia with 2 Lpm baseline oxygen requirement. 6. CKD Baseline serum creatinine 1.6-2.0. 7. VALENTINA 8. 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 (Patient taking differently: Inhale 0.5 mL by mouth 4 times daily) 1 Box 11 apixaban (ELIQUIS) 5 MG tablet Take 1 (one) tablet by mouth 2 times daily aspirin EC (ECOTRIN) 81 MG tablet Take 1 (one) tablet by mouth once daily baclofen (LIORESAL) 10 MG tablet Take 1 (one) tablet by mouth every evening May cause drowsiness. benzonatate (TESSALON) 200 MG capsule Take 1 capsule by mouth 3 times daily as needed for Cough BREZTRI AEROSPHERE 160-9-4.8 MCG/ACT AERO INHALE 2 PUFFS BY MOUTH EVERY MORNING AND EVERY EVENING bumetanide (BUMEX) 0.5 MG tablet Take 1 (one) tablet by mouth 2 times daily camphor-menthol (Sarna/Dermasarra) 0.5-0.5 % lotion APPLY LIBERALLY TO AFFECTED AREA(S) FOUR TIMES A DAY FOR ITCHING - (EXTERNAL USE ONLY) Cetirizine HCl (ZYRTEC PO) Take 10 mg by mouth daily with breakfast cyanocobalamin (VITAMIN B-12) 500 MCG tablet Take 1 (one) tablet by mouth once daily diclofenac sodium (Voltaren) 1 % gel APPLY 4 GM TO AFFECTED AREA(S) FOUR TIMES A DAY FOR PAIN DO NOT EXCEED MORE THAN 16 GRAMS DAILY TO ANY LOWER EXTREMITY JOINT. NOT MORE THAN 8 GRAMS DAILY TO ANY UPPER EXTREMITY JOINT. MAX 32GM/DAY OVER ALL JOINTS. (MEASURE DOSE WITH RULER ATTACHED INSIDE BOX) diphenhydrAMINE (BENADRYL) 25 MG capsule Take 1 (one) capsule by mouth every 6 hours as needed for Itching doxycycline hyclate (VIBRAMYCIN) 100 MG capsule Take 1 (one) capsule by mouth once daily ferrous sulfate 325 (65 FE) MG tablet Take 1 (one) tablet by mouth daily with breakfast folic acid (Folvite) 1 MG tablet Take 1 (one) tablet by mouth once daily (Patient not taking: Reported on 03/21/2023) gabapentin (NEURONTIN) 100 MG capsule Take 2 (two) capsules by mouth at bedtime lidocaine (Lidoderm) 5 % patch magnesium oxide (Mag-Ox) 400 MG tablet Take 1 (one) tablet by mouth 2 times daily metoprolol succinate XL 24hr (TOPROL XL) 50 MG tablet Take 1 (one) tablet by mouth once daily nystatin [id number] UNIT/GM cream - BACITRACIN ointment 50:50 CREA Apply to affected area 2 times dailyas needed (Patient not taking: Reported on 03/21/2023) omeprazole (PriLOSEC) 40 MG capsule TAKE 1 (ONE) CAPSULE BY MOUTH 2 TIMES DAILY, BEFORE BREAKFAST AND SUPPER REASONS: PEPTIC ULCER (Patient taking differently: Take 1 (one) capsule by mouth daily before breakfast Reasons: Peptic Ulcer) 30 capsule 3 Oxygen 1 L potassium chloride ER (KLOR-CON M) 20 MEQ tablet Take 1 (one) tablet by mouth once daily Pyridoxine HCl (VITAMIN B-6 PO) Take 100 mg by mouth once daily roflumilast (DALIRESP) 500 MCG tablet Take 1 (one) tablet by mouth once daily Skin Protectants, Misc. (BASIS FACIAL MOISTURIZER) CREA 1 Each by Apply externally route as needed Reasons: Dryness Confined to a Specific area of the Body, eyes Spacer/Aero-Holding Chambers ([facility]) MISC as directed spironolactone (Aldactone) 25 MG tablet Take 0.5 (one-half) tablet by mouth once daily tamsulosin (FLOMAX) 0.4 MG capsule Take 1 (one) capsule by mouth at bedtime 1 triamcinolone acetonide (KENALOG) 0.1 % cream Apply to affected area 3 times daily Apply to rash daily as needed. vitamin D3 (Cholecalciferol) 25 MCG (1000 UNITS) tablet Take 1 (one) tablet by mouth once daily Current Medications: albuterol-ipratropium (Duo-Neb) nebulizer solution 3 mL, Inhalation, q6h artificial tears ophthalmic ointment, Each Eye, q8h aspirin chew tablet 81 mg, Enteral Tube, QDAY cefepime (Maxipime) 2,000 mg in 0.9% NaCl IV 50 mL IVPB, Intravenous, q12h chlorhexidine (Peridex) 0.12 % oral solution 15 mL, Mouth/Throat, BID gabapentin (Neurontin) oral solution 100 mg, Enteral Tube, AT BEDTIME hydrocortisone sodium succinate PF (Solu-CORTEF) injection 100 mg, Intravenous, q8h pantoprazole (Protonix) injection 40 mg, Intravenous, QDAY vancomycin (Vancocin) IV dose per pharmacy, Does not apply, DIRECTED lactated ringers infusion, Intravenous, Continuous norepinephrine (Levophed) 8 mg/250 ml D5 infusion premix, Intravenous, Continuous propofol (Diprivan) infusion, Intravenous, Continuous Family History Unable to obtain secondary to the patient's condition Social History Unable to obtain secondary to the patient's condition Review of Systems Unable to obtain secondary to the patient's condition Exam Vitals: 10/12/23 0507 Weight: 111.1 kg (244 lb 14.9 oz) Height: 1.803 m (5' 10.98 ) General appearance: Intubated, sedated. Head: Normocephalic, without trauma Eyes: Sclera and conjunctiva clear. Pupils round, reactive, equal. Neck: Supple, no LAD. Trachea midline Lungs: Bilateral rales, coarse breath sounds, scant wheezes. Heart: IRIR Abdomen: Soft, non-distended. Bowel sounds present. Extremities: No clubbing, cyanosis. Mild peripheral edema present. Large area of induration and erythema along the medial left thigh. No apparent open wound. Skin: Normal skin turgor. Neurologic: Sedated, unresponsive. Laboratory Data: Recent Labs Component Name 03/08/23 1347 08/23/224 08/10/22 1259 WBC 11.4* 7.9 10.4 HGB 12.6* 14.1 13.7 HCT 39.0 44.3 42.1 PLTCOUNT 129* 194 120* Recent Labs Component Name 03/08/23 1347 08/23/22 2024 08/10/22 1259 05/13/22 1141 SODIUM 141 - 141 140 POTASSIUM 4.4 4.6* 5.1 4.6 CHLORIDE 103 - 101 103 CO2 24 26 29 28 BUN 31* 26 30* 27* CREATININE 1.96* 1.60* 1.74* 1.84* GLUCOSE 104 113 91 117* CALCIUM 9.4 10.3* 10.1 9.7 Recent Labs Component Name 09/19/17 0243 09/18/17 1104 09/18/17 0003 MAGNESIUM 1.7 2.6 2.0 Recent Labs Component Name 09/19/17 0243 09/18/17 0003 09/17/17 0433 PHOS 2.5 2.8 3.2 Recent Labs Component Name 09/10/17 0557 09/09/17 0841 09/09/17 0422 FIO2 40.0 100.0 100.0 Assessment and Plan 1. Sepsis Suspect source to be cellulitis of the proximal LLE. Per outside records the LLE was included in the CT evaluation for PE, though the images and formal interpretation did not accompany the patient from the outside facility. Will attempt to obtain the formal interpretation of at least the LLE CT, though if this is not possible then a repeat CT may be needed to exclude a deep tissue infection. The gallbladder was distended on the abdominal CT, though the patient's hepatic enzymes are normal. Do not suspect acute cholecystitis. Continue broad-spectrum antibiotic coverage, await results of blood cultures and CT findings from the outside facility. 2. Shock Secondary to sepsis. EKG was without ischemic changes, serum troponin was only borderline elevated.Bedside cardiac ultrasound was performed following admission to the ICU. Overall poor visualization, though LVEF appears to be grossly normal. Will obtain formal echocardiogram, though do not suspecta cardiogenic component to the shock. The patient was given adequate volume resuscitation at the outside facility with normalization of the serum lactate. Continue vasopressor support. 3. Respiratory failure Acute, hypoxemic. Likely secondary to volume overload in the setting of sepsis with shock and a history of CHF. Continue ventilatory support. 4. COPD Baseline oxygen requirement and chronic dyspnea on exertion per outside records. Modest expiratory wheezing present now. Schedule bronchodilators. 5. Atrial fibrillation Chronic and currently rate controlled. Hold beta fe secondary to shock. Hold therapeutic anticoagulation pending the patient's clinical course and possible need for procedures. 6. CHF As above, LVEF appears grossly normal on bedside cardiac ultrasound. Will obtain formal echocardiogram. Holding beta fe and diuretics secondary to sepsis with shock. 7. RADHA with CKD Serum creatinine from the outside facility is near the patient's baseline, though suspect that thismay change with the progression of shock and intravenous contrast administration for CT at the outside hospital. Avoid further insults as able. 8. History cirrhosis secondary to MICHAUD Hepatic enzymes and coagulation factors normal per records from the outside hospital. 9. Prophylaxis SCD. PPI. Heparin SC. 65 minutes of critical care time were spent reviewing the chart, interviewing and examining the patient, participating in rounds, writing orders, and documentation. No procedures were performed during this time. documented in this encounter Miscellaneous Notes * Code/Rapid Response Event - Elsa Oneill RN - 10/16/2023 11:10 PM CDT RAPID RESPONSE DOCUMENTATION NOTE PATIENT'S NAME: José Miguel Keys BIRTHDATE: 1950 CODE STATUS: Full Code RAPID DATE:10/16/23 RAPID TIME: 2216 RAPID LOCATION: [facility] ADMITTING SERVICE: [facility]* PERSON(S) NOTIFIED: Family, care team, Dr. Hook, RT PRIMARY REASON FOR CALL: Respirations Acute mental status change OUTCOME: Transitional Care / Stepdown Unit SUMMARY OF RAPID EVENTS: TONGUE AND QUARTER STITCHER called for change in mentation as well as decreased respirations. Mr Keys was admitted to the hospital on 10/11 and is being treated for septic shock, cellulitis, hypoxemic respiratory failure, afib, radha previously intubated in the ICU during this hospital stay. I assisted with him yesterday in which a cabral was placed for urinary retention. Last night Mr Keys was on his home cpap, speaking, and following commands intermittently. Today, upon entering the room he is breathing shallow, 10x per min, obtunded appearance. 0.4mg narcan given as total of 60mg oxycodone has been given during the last 24 hours. He had a positive response to narcan, now groaning and reachi ng. ABG obtained. PH 7.31, CO2 61, HCO3 30.7. Moved to stepdown for bipap and further management. 2345- Patient initiated on a narcan drip. 0.5 mg/hr. He will open eyes to speech, is not following consistent commands at this time. 0400- Lungs diminished, opens eyes to speech, does not follow commands. Pupils 3 reactive bilaterally. Bipap settings have been adjusted throughout the night. ABG continues to remain similar. Narcan gtt up to 1mg/hr. Intermittent bolus of narcan given. Awaiting AM ABG. 0500: ABG : pH 7.32, CO2 61, HCO3 31.4. Continue current settings. K elevated this AM--meds ordered, given by primary RN. 60 minutes spent on patient assessment, review of relevant data, and documentation. documented in this encounter Plan of Treatment Upcoming Encounters Date Type Department Care Team (Late st Contact Info) Description 07/09/2024 12:30 PM NURSING FACULTY Office Visit [facility] - GI [address] [place] [address], [place] [address] Twin Miller MD [address] [place] [address] [place] [address] 09/19/2024 2:00 PM CDT Office Visit [facility] - Orthopedic Surgery [address] [facility] [place] [place] [address] Larry Alexander MD [address] [facility] [address] [place] [address] Scheduled Orders Name Type Priority Associated Diagnoses Order Schedule INITIATE RT BRONCHODILATOR PROTOCOL Respiratory Care Routine ONCE for 1 Occurrences starting 10/13/2023 until 10/13/2023 documented as of this encounter Goals Goal [...] Procedure Name Priority Date/Time Associated Diagnosis Comments CARDIAC EKG ORDER 11/07/2023 11: 24 PM CDT CARDIAC EKG ORDER 11/04/2023 5:1 3 PM CDT GLUCOSE - POINT OF CARE Routine 11/03/2023 12:08 PM CDT SARS-COV-2 (COVID-19) RAPID MYRNA 11/03/2023 10:51 AM CDT GLUCOSE - POINT OF CARE Routine 11/03/2023 8:13 AM CDT CBC W AUTO DIFFERENTIAL AM Draw 11/03/2023 4:17 AM CDT BASIC METABOLIC PANEL (CALCIUM TOTAL) AM Draw 11/03/2023 4:17 AM CDT MAGNESIUM BLOOD Routine 11/03/2023 4:17 AM CDT GLUCOSE - POINT OF CARE Routine 11/02/2023 9:18 PM CDT GLUCOSE - POINT OF CARE Routine 11/02/2023 4:56 PM CDT XR CHEST 1VW PORTABLE Routine 11/02/2023 4:37 PM CDT Hypoxemia BLOOD GASES ARTERIAL Routine 11/02/2023 4:23 PM CDT CARDIAC EKG ORDER 11/02/2023 11: 29 AM CDT GLUCOSE - POINT OF CARE Routine 11/02/2023 11:23 AM CDT CBC W AUTO DIFFERENTIAL AM Draw 11/02/2023 8:10 AM CDT BASIC METABOLIC PANEL (CALCIUM TOTAL) AM Draw 11/02/2023 8:10 AM CDT MAGNESIUM BLOOD Routine 11/02/2023 8:10 AM CDT GLUCOSE - POINT OF CARE Routine 11/02/2023 7:52 AM CDT GLUCOSE - POINT OF CARE Routine 11/01/2023 8:38 PM CDT GLUCOSE - POINT OF CARE Routine 11/01/2023 5:18 PM CDT GLUCOSE - POINT OF CARE Routine 11/01/2023 11:39 AM CDT GLUCOSE - POINT OF CARE Routine 11/01/2023 7:34 AM CDT CBC W AUTO DIFFERENTIAL AM Draw 11/01/2023 5:02 AM CDT B-TYPE NATRIURETIC PEPTIDE AM Draw 11/01/2023 5:02 AM CDT MAGNESIUM BLOOD Routine 11/01/2023 5:02 AM CDT LIPID PROFILE AM Draw 11/01/2023 5:02 AM CDT GLUCOSE - POINT OF CARE Routine 10/31/2023 8:19 PM CDT GLUCOSE - POINT OF CARE Routine 10/31/2023 5:28 PM CDT GLUCOSE - POINT OF CARE Routine 10/31/2023 12:01 PM CDT GLUCOSE - POINT OF CARE Routine 10/31/2023 8:38 AM CDT XR CHEST 1VW PORTABLE Routine 10/31/2023 5:29 AM CDT Acute respiratory failure, unspecified whether with hypoxia or hypercapnia (HCC) CBC W AUTO DIFFERENTIAL AM Draw 10/31/2023 4:31 AM CDT MAGNESIUM BLOOD Routine 10/31/2023 4:31 AM CDT GLUCOSE - POINT OF CARE Routine 10/30/2023 7:29 PM CDT GLUCOSE - POINT OF CARE Routine 10/30/2023 6:15 PM CDT GLUCOSE - POINT OF CARE Routine 10/30/2023 6:06 PM CDT GLUCOSE - POINT OF CARE Routine 10/30/2023 1:02 PM CDT GLUCOSE - POINT OF CARE Routine 10/30/2023 9:09 AM CDT CBC W AUTO DIFFERENTIAL AM Draw 10/30/2023 4:35 AM CDT BASIC METABOLIC PANEL (CALCIUM TOTAL) Routine 10/30/2023 4:35 AM CDT MAGNESIUM BLOOD Routine 10/30/2023 4:35 AM CDT GLUCOSE - POINT OF CARE Routine 10/29/2023 7:44 PM CDT GLUCOSE - POINT OF CARE Routine 10/29/2023 5:53 PM CDT GLUCOSE - POINT OF CARE Routine 10/29/2023 12:37 PM CDT GLUCOSE - POINT OF CARE Routine 10/29/2023 7:35 AM CDT CBC W AUTO DIFFERENTIAL AM Draw 10/29/2023 4:41 AM CDT MAGNESIUM BLOOD Routine 10/29/2023 4:41 AM CDT GLUCOSE - POINT OF CARE Routine 10/28/2023 7:53 PM CDT GLUCOSE - POINT OF CARE Routine 10/28/2023 4:36 PM CDT GLUCOSE - POINT OF CARE Routine 10/28/2023 12:40 PM CDT GLUCOSE - POINT OF CARE Routine 10/28/2023 12:16 PM CDT GLUCOSE - POINT OF CARE Routine 10/28/2023 7:57 AM CDT CBC W AUTO DIFFERENTIAL AM Draw 10/28/2023 3:58 AM CDT MAGNESIUM BLOOD Routine 10/28/2023 3:58 AM CDT GLUCOSE - POINT OF CARE Routine 10/27/2023 8:03 PM CDT GLUCOSE - POINT OF CARE Routine 10/27/2023 5:04 PM CDT GLUCOSE - POINT OF CARE Routine 10/27/2023 12:17 PM CDT VAS RIGHT VENOUS DUPLEX UE Routine 10/27/2023 9:33 AM CDT Right elbow pain GLUCOSE - POINT OF CARE Routine 10/27/2023 8:27 AM CDT DIFFERENTIAL MANUAL AM Draw 10/27/2023 7 :37 AM CDT CBC W AUTO DIFFERENTIAL AM Draw 10/27/2023 7:37 AM CDT MAGNESIUM BLOOD Routine 10/27/2023 7:37 AM CDT GLUCOSE - POINT OF CARE Routine 10/26/2023 10:08 PM CDT GLUCOSE - POINT OF CARE Routine 10/26/2023 8:37 PM CDT GLUCOSE - POINT OF CARE Routine 10/26/2023 5:12 PM CDT XR ELBOW RIGHT 2VW Routine 10/26/2023 3: 21 PM CDT Right elbow pain GLUCOSE - POINT OF CARE Routine 10/26/2023 12:23 PM CDT GLUCOSE - POINT OF CARE Routine 10/26/2023 8:00 AM CDT DIFFERENTIAL MANUAL AM Draw 10/26/2023 6 :39 AM CDT CBC W AUTO DIFFERENTIAL AM Draw 10/26/2023 6:39 AM CDT RENAL FUNCTION PANEL AM Draw 10/26/2023 3:59 AM CDT MAGNESIUM BLOOD Routine 10/26/2023 3:59 AM CDT GLUCOSE - POINT OF CARE Routine 10/25/2023 8:10 PM CDT GLUCOSE - POINT OF CARE Routine 10/25/2023 5:41 PM CDT GLUCOSE - POINT OF CARE Routine 10/25/2023 11:37 AM CDT GLUCOSE - POINT OF CARE Routine 10/25/2023 8:04 AM CDT CBC W AUTO DIFFERENTIAL AM Draw 10/25/2023 4:11 AM CDT RENAL FUNCTION PANEL AM Draw 10/25/2023 4:11 AM CDT MAGNESIUM BLOOD Routine 10/25/2023 4:11 AM CDT GLUCOSE - POINT OF CARE Routine 10/24/2023 7:51 PM CDT GLUCOSE - POINT OF CARE Routine 10/24/2023 5:47 PM CDT GLUCOSE - POINT OF CARE Routine 10/24/2023 12:32 PM CDT GLUCOSE - POINT OF CARE Routine 10/24/2023 10:19 AM CDT XR CHEST 1VW Routine 10/24/2023 5:17 AM CDT Acute respiratory failure with hypoxia (HCC) Oropharyngeal dysphagia CBC W AUTO DIFFERENTIAL AM Draw 10/24/2023 5:17 AM CDT RENAL FUNCTION PANEL AM Draw 10/24/2023 5:17 AM CDT MAGNESIUM BLOOD Routine 10/24/2023 5:17 AM CDT GLUCOSE - POINT OF CARE Routine 10/23/2023 9:00 PM CDT GLUCOSE - POINT OF CARE Routine 10/23/2023 5:12 PM CDT GLUCOSE - POINT OF CARE Routine 10/23/2023 12:04 PM CDT GLUCOSE - POINT OF CARE Routine 10/23/2023 8:17 AM CDT CBC W AUTO DIFFERENTIAL AM Draw 10/23/2023 4:37 AM CDT RENAL FUNCTION PANEL AM Draw 10/23/2023 4:37 AM CDT MAGNESIUM BLOOD Routine 10/23/2023 4:37 AM CDT GLUCOSE - POINT OF CARE Routine 10/22/2023 8:10 PM CDT XR ABDOMEN KUB Routine 10/22/2023 5:19 PM CDT Oropharyngeal dysphagia GLUCOSE - POINT OF CARE Routine 10/22/2023 5:17 PM CDT BASIC METABOLIC PANEL (CALCIUM TOTAL) Timed 10/22/2023 3:32 PM CDT GLUCOSE - POINT OF CARE Routine 10/22/2023 11:42 AM CDT GLUCOSE - POINT OF CARE Routine 10/22/2023 6:47 AM CDT CBC W AUTO DIFFERENTIAL AM Draw 10/22/2023 3:31 AM CDT RENAL FUNCTION PANEL AM Draw 10/22/2023 3:31 AM CDT MAGNESIUM BLOOD Routine 10/22/2023 3:31 AM CDT GLUCOSE - POINT OF CARE Routine 10/21/2023 8:40 PM CDT GLUCOSE - POINT OF CARE Routine 10/21/2023 4:54 PM CDT GLUCOSE - POINT OF CARE Routine 10/21/2023 1:12 PM CDT FL SWALLOWING FUNCTION STUDY Routine 10/21/2023 10:22 AM CDT Oropharyngeal dysphagia GLUCOSE - POINT OF CARE Routine 10/21/2023 7:53 AM CDT SLIDE SCAN HEMATOLOGY AM Draw 10/21/2023 3:41 AM CDT CBC W AUTO DIFFERENTIAL AM Draw 10/21/2023 3:41 AM CDT RENAL FUNCTION PANEL AM Draw 10/21/2023 3:41 AM CDT MAGNESIUM BLOOD Routine 10/21/2023 3:41 AM CDT GLUCOSE - POINT OF CARE Routine 10/20/2023 9:43 PM CDT GLUCOSE - POINT OF CARE Routine 10/20/2023 5:12 PM CDT RENAL FUNCTION PANEL Timed 10/20/2023 3:34 PM CDT EEG Routine 10/20/2023 12:00 PM CDT GLUCOSE - POINT OF CARE Routine 10/20/2023 11:53 AM CDT GLUCOSE - POINT OF CARE Routine 10/20/2023 6:55 AM CDT XR CHEST 1VW PORTABLE Routine 10/20/2023 5:03 AM CDT Acute respiratory failure, unspecified whether with hypoxia or hypercapnia (HCC) DIFFERENTIAL MANUAL AM Draw 10/20/2023 3:53 AM CDT CBC W AUTO DIFFERENTIAL AM Draw 10/20/2023 3:53 AM CDT RENAL FUNCTION PANEL AM Draw 10/20/2023 3:53 AM CDT MAGNESIUM BLOOD Routine 10/20/2023 3:53 AM CDT GLUCOSE - POINT OF CARE Routine 10/19/2023 8:13 PM CDT GLUCOSE - POINT OF CARE Routine 10/19/2023 5:17 PM CDT SODIUM BLOOD Timed 10/19/2023 4:39 PM CDT GLUCOSE - POINT OF CARE Routine 10/19/2023 11:57 AM CDT GLUCOSE - POINT OF CARE Routine 10/19/2023 6:38 AM CDT DIFFERENTIAL MANUAL AM Draw 10/19/2023 3 :36 AM CDT CBC W AUTO DIFFERENTIAL AM Draw 10/19/2023 3:36 AM CDT COMPREHENSIVE METABOLIC PANEL AM Draw 10/19/2023 3:36 AM CDT MAGNESIUM BLOOD Routine 10/19/2023 3:36 AM CDT GLUCOSE - POINT OF CARE Routine 10/18/2023 9:04 PM CDT GLUCOSE - POINT OF CARE Routine 10/18/2023 6:03 PM CDT GLUCOSE - POINT OF CARE Routine 10/18/2023 11:52 AM CDT COMPREHENSIVE METABOLIC PANEL AM Draw 10/18/2023 7:45 AM CDT MAGNESIUM BLOOD Routine 10/18/2023 7:45 AM CDT BLOOD GASES ART + COOX PANEL Routine 10/17/2023 9:17 PM CDT Acute respiratory failure with hypoxia (HCC) GLUCOSE - POINT OF CARE Routine 10/17/2023 9:05 PM CDT RENAL FUNCTION PANEL Timed 10/17/2023 7:39 PM CDT GLUCOSE - POINT OF CARE Routine 10/17/2023 4:13 PM CDT BLOOD GASES ART + COOX PANEL RT Routine 10/17/2023 2:34 PM CDT RENAL FUNCTION PANEL Timed 10/17/2023 2:21 PM CDT XR ABDOMEN KUB STAT 10/17/2023 12:59 PM CDT Acute respiratory failure, unspecified whether with hypoxia or hypercapnia (HCC) AMMONIA STAT 10/17/2023 12:33 PM CDT XR CHEST 1VW PORTABLE STAT 10/17/2023 11:34 AM CDT Acute respiratory failure, unspecified whether with hypoxia or hypercapnia (HCC) C-REACTIVE PROTEIN Routine 10/17/2023 11 :23 AM CDT B-TYPE NATRIURETIC PEPTIDE Routine 10/17/2023 11:23 AM CDT GLUCOSE - POINT OF CARE Routine 10/17/2023 10:[address] HEAD WO CONTRAST STAT 10/17/2023 1 0:37 AM CDT Acute respiratory failure, unspecified whether with hypoxia or hypercapnia (HCC) GLUCOSE - POINT OF CARE Routine 10/17/2023 9:41 AM CDT GLUCOSE - POINT OF CARE Routine 10/17/2023 8:35 AM CDT BLOOD GASES ART + COOX PANEL RT Routine 10/17/2023 8:11 AM CDT GLUCOSE - POINT OF CARE Routine 10/17/2023 7:35 AM CDT GLUCOSE - POINT OF CARE Routine 10/17/2023 6:29 AM CDT GLUCOSE - POINT OF CARE Routine 10/17/2023 5:35 AM CDT GLUCOSE - POINT OF CARE Routine 10/17/2023 4:49 AM CDT BLOOD GASES ART + COOX PANEL RT Routine 10/17/2023 4:20 AM CDT CBC W AUTO DIFFERENTIAL AM Draw 10/17/2023 3:58 AM CDT B-TYPE NATRIURETIC PEPTIDE Routine 10/17/2023 3:58 AM CDT COMPREHENSIVE METABOLIC PANEL AM Draw 10/17/2023 3:36 AM CDT MAGNESIUM BLOOD Routine 10/17/2023 3:36 AM CDT BLOOD GASES ART + COOX PANEL Routine 10/17/2023 2:00 AM CDT Acute respiratory failure, unspecified whether with hypoxia or hypercapnia (HCC) BLOOD GASES ART + COOX PANEL RT Routine 10/17/2023 12:51 AM CDT GLUCOSE - POINT OF CARE Routine 10/16/2023 11:31 PM CDT XR CHEST 1VW PORTABLE STAT 10/16/2023 10:36 PM CDT Acute respiratory failure, unspecified whether with hypoxia or hypercapnia (HCC) BASIC METABOLIC PANEL (CALCIUM TOTAL) STAT 10/16/2023 10:34 PM CDT BLOOD GASES ART + COOX PANEL STAT 10/16/2023 10:27 PM CDT GLUCOSE - POINT OF CARE Routine 10/16/2023 10:21 PM CDT GLUCOSE - POINT OF CARE Routine 10/16/2023 9:54 PM CDT GLUCOSE - POINT OF CARE Routine 10/16/2023 6:02 PM CDT GLUCOSE - POINT OF CARE Routine 10/16/2023 12:43 PM CDT XR CHEST 1VW PORTABLE Routine 10/16/2023 11:35 AM CDT Acute respiratory failure, unspecified whether with hypoxia or hypercapnia (HCC) CT CHEST ABDOMEN PELVIS WO CONT Routine 10/16/2023 11:25 AM CDT Sepsis due to other etiology (HCC) GLUCOSE - POINT OF CARE Routine 10/16/2023 6:51 AM CDT DIFFERENTIAL MANUAL AM Draw 10/16/2023 3 :55 AM CDT CBC W AUTO DIFFERENTIAL AM Draw 10/16/2023 3:55 AM CDT COMPREHENSIVE METABOLIC PANEL AM Draw 10/16/2023 3:55 AM CDT MAGNESIUM BLOOD Routine 10/16/2023 3:55 AM CDT GLUCOSE - POINT OF CARE Routine 10/15/2023 9:38 PM CDT GLUCOSE - POINT OF CARE Routine 10/15/2023 3:58 PM CDT XR CHEST 1VW PORTABLE STAT 10/15/2023 2:45 PM CDT Acute respiratory failure, unspecified whether with hypoxia or hypercapnia (HCC) CT FEMUR LEFT WO CONTRAST STAT 10/15/2023 12:37 PM CDT Sepsis due to other etiology (HCC) GLUCOSE - POINT OF CARE Routine 10/15/2023 12:13 PM CDT GLUCOSE - POINT OF CARE Routine 10/15/2023 8:35 AM CDT SLIDE SCAN HEMATOLOGY AM Draw 10/15/2023 4:44 AM CDT CBC W AUTO DIFFERENTIAL AM Draw 10/15/2023 4:44 AM CDT COMPREHENSIVE METABOLIC PANEL AM Draw 10/15/2023 4:44 AM CDT PHOSPHORUS BLOOD AM Draw 10/15/2023 4:44 AM CDT MAGNESIUM BLOOD Routine 10/15/2023 4:44 AM CDT CK BLOOD Routine 10/15/2023 4:44 AM CDT GLUCOSE - POINT OF CARE Routine 10/14/2023 9:06 PM CDT GLUCOSE - POINT OF CARE Routine 10/14/2023 5:55 PM CDT GLUCOSE - POINT OF CARE Routine 10/14/2023 11:43 AM CDT GLUCOSE - POINT OF CARE Routine 10/14/2023 6:54 AM CDT SLIDE SCAN HEMATOLOGY AM Draw 10/14/2023 3:37 AM CDT CBC W AUTO DIFFERENTIAL AM Draw 10/14/2023 3:37 AM CDT COMPREHENSIVE METABOLIC PANEL AM Draw 10/14/2023 3:37 AM CDT PHOSPHORUS BLOOD AM Draw 10/14/2023 3:37 AM CDT MAGNESIUM BLOOD Routine 10/14/2023 3:37 AM CDT FOLATE Routine 10/14/2023 3:37 AM CDT CK BLOOD Routine 10/14/2023 3:37 AM CDT VANCOMYCIN LEVEL RANDOM Timed 10/14/2023 3:37 AM CDT IRON + TRANSFERRIN PANEL Routine 10/14/2023 3:37 AM CDT GLUCOSE - POINT OF CARE Routine 10/13/2023 8:41 PM CDT GLUCOSE - POINT OF CARE Routine 10/13/2023 4:04 PM CDT URINALYSIS REFLEX TO MICROSCOPIC NO CULTURE Routine 10/13/2023 2:24 PM CDT URINE MICROSCOPIC ONLY Routine 10/13/2023 2:24 PM CDT LYTES (NA K CL) URINE RANDOM PANEL Routine 10/13/2023 2:24 PM CDT BASIC METABOLIC PANEL (CALCIUM TOTAL) Timed 10/13/2023 11:53 AM CDT CK BLOOD Timed 10/13/2023 11:53 AM CDT GLUCOSE - POINT OF CARE Routine 10/13/2023 11:44 AM CDT GLUCOSE - POINT OF CARE Routine 10/13/2023 7:36 AM CDT GLUCOSE - POINT OF CARE Routine 10/13/2023 4:08 AM CDT HEMOGLOBIN A1C Routine 10/13/2023 3:46 AM CDT SLIDE SCAN HEMATOLOGY AM Draw 10/13/2023 3:46 AM CDT CBC W AUTO DIFFERENTIAL AM Draw 10/13/2023 3:46 AM CDT COMPREHENSIVE METABOLIC PANEL AM Draw 10/13/2023 3:46 AM CDT MAGNESIUM BLOOD Routine 10/13/2023 3:46 AM CDT VANCOMYCIN LEVEL RANDOM AM Draw 10/13/2023 3:46 AM CDT GLUCOSE - POINT OF CARE Routine 10/13/2023 12:12 AM CDT GLUCOSE - POINT OF CARE Routine 10/12/2023 8:13 PM CDT GLUCOSE - POINT OF CARE Routine 10/12/2023 4:04 PM CDT BLOOD GASES ART + COOX PANEL RT Routine 10/12/2023 12:02 PM CDT GLUCOSE - POINT OF CARE Routine 10/12/2023 11:43 AM CDT RENAL FUNCTION PANEL Timed 10/12/2023 11:36 AM CDT LACTIC ACID BLOOD Timed 10/12/2023 11: 36 AM CDT ECHO COMPLETE W CONTRAST Routine 10/12/2023 11:00 AM CDT Acute respiratory failure, unspecified whether with hypoxia or hypercapnia (HCC) C-REACTIVE PROTEIN Routine 10/12/2023 10 :28 AM CDT LIPASE BLOOD Routine 10/12/2023 10:28 AM CDT CK BLOOD Routine 10/12/2023 10:[address] FEMUR LEFT WO CONTRAST STAT 10/12/2023 10:00 AM CDT Sepsis due to other etiology (HCC) CULTURE BLOOD Timed 10/12/2023 8:52 AM CDT CULTURE BLOOD Timed 10/12/2023 8:52 AM CDT BLOOD GASES ART + COOX PANEL RT Routine 10/12/2023 8:37 AM CDT XR CHEST 1VW PORTABLE STAT 10/12/2023 5:55 AM CDT Acute respiratory failure, unspecified whether with hypoxia or hypercapnia (HCC) BLOOD GASES ARTERIAL STAT 10/12/2023 5:08 AM CDT COAGULATION PANEL W D-DIMER STAT 10/12/2023 5:03 AM CDT SLIDE SCAN HEMATOLOGY Routine 10/12/2023 5:03 AM CDT CBC W AUTO DIFFERENTIAL Routine 10/12/2023 5:03 AM CDT COMPREHENSIVE METABOLIC PANEL Routine 10/12/2023 5:03 AM CDT PHOSPHORUS BLOOD Routine 10/12/2023 5:03 AM CDT MAGNESIUM BLOOD Routine 10/12/2023 5:03 AM CDT LACTIC ACID BLOOD STAT 10/12/2023 5:0 3 AM CDT documented in this encounter Results * CARDIAC EKG ORDER (11/07/2023 11:24 PM CDT) Narrative 11/07/2023 11:24 PM CDT Ordered by an unspecified provider. Scanned Document CARDIAC SERVICES ORD ERABLES * CARDIAC EKG ORDER (11/04/2023 5:13 PM CDT) Narrative 11/04/2023 5:13 PM CDT Ordered by an unspecified provider. Scanned Document CARDIAC SERVICES ORD ERABLES * GLUCOSE - POINT OF CARE (11/03/2023 12:08 PM CDT) Pathologist [facility] Glucose WB/POC 96 70 - 106 mg/dL 11/03/2023 12:18 PM CDT [facility] Specimen Type Cap Fingerstick 2023 12:18 PM CDT [facility] Blood BLOOD SPECIMEN / Unknown 11/03/2023 12:08 PM CDT 11/03/2023 12:18 PM CDT Ariel Martinez MD LAB - POINT OF CARE ORDERABLES [facility] [address] [place] [address] * SARS-COV-2 (COVID-19) RAPID (11/03/2023 10:51 AM CDT) Pathologist [facility] COVID-19 PCR Not detected Not detected 11/03/19 11:27 AM CDT [facility] Microbiology SPECIMEN FROM NASOPHARYNGEAL STRUCTURE / Unknown Collection / Unknown 11/03/2023 10:51 AM CDT 11/03/2023 10:54 AM CDT Narrative [facility] - 11/03/2023 11:27 AM CDT The [employer] Xpert Xpress SARS-COV-2 has been authorized by [...] - MICROBIOLOGY O RDERABLES Performing Organization Address City/[facility]/ZIP Co de Phone Number [facility] [address] [place] [phone] * (ABNORMAL) GLUCOSE - POINT OF CARE (11/03/2023 8:13 AM CDT) Pathologist [facility] Glucose WB/POC 107(H) 70 - 106 mg/dL 11/03/2023 8:23 AM CDT [facility] Specimen Type Cap Fingerstick 2023 8:23 AM CDT [facility] Blood BLOOD SPECIMEN / Unknown 11/03/2023 8:13 AM CDT 11/03/2023 8:23 AM CDT Ariel Martinez MD LAB - POINT OF CARE ORDERABLES Performing Organization Address [facility]/ZIP Co de Phone Number [facility] [address] [place] [address] * (ABNORMAL) CBC W AUTO DIFFERENTIAL (11/03/2023 4:17 AM CDT) Pathologist [facility] WBC 5.9 4.0 - 10.7 x10E9/L 11/03/2023 4:53 AM CDT [facility] RBC Count 3.55(L) 4.30 - 5.80 x10E12/L 11/03/2023 4:53 AM [facility] Hemoglobin 11.1(L) 13.3 - 17.5 g/dL 11/03/2023 4:53 AM [facility] Hematocrit 36.0(L) 38.7 - 51.1 % 11/03/2023 4:53 AM [facility] MCV 101.4(H) 80.0 - 98.0 fL 11/03/2023 4:53 [facility] MCH 31.3 26.7 - 33.6 pg 11/03/2023 4:53 AM [facility] MCHC 30.8(L) 31.7 - 36.3 g/dL 11/03/2023 4:53 AM [facility] RDW-CV 17.4(H) 11.3 - 14.8 % 11/03/2023 4:53 AM [facility] Platelet Count 186 150 - 420 x10E9/L 11/03/2023 4:53 AM [facility] MPV 13.2(H) 7.8 - 11.4 fL 11/03/2023 4:53 AM [facility] Neutrophil % 62.6 41.0 - 74.0 % 11/03/2023 4:53 AM [facility] Lymphocyte % 15.0(L) 17.0 - 47.0 % 11/03/2023 4:53 AM [facility] Monocyte % 14.0(H) 3.0 - 11.0 % 11/03/2023 4:53 AM [facility] Eosinophil % 6.7 0.0 - 7.0 % 11/03/2023 4:53 AM [facility] Basophil % 0.5 0.0 - 1.6 % 11/03/2023 4:53 [facility] Immature Granulocytes % 1.2(H) 0.0 - 1.0 % 11/03/2023 4:53 AM [facility] Neutrophil Absolute 3.67 1.60 - 7.50 x10E9/L 11/03/2023 4:53 AM [facility] Lymphocyte Absolute 0.88(L) 1.00 - 4.40 x10E9/L 11/03/2023 4:53 AM CDT [facility] Monocyte Absolute 0.82 0.15 - 1.00 x10E9/L 11/03/2023 4:53 AM CDT [facility] Eosinophil Absolute 0.39 0.00 - 0.60 x10E9/L 11/03/2023 4:53 AM CDT [facility] Basophil Absolute 0.03 0.00 - 0.13 x10E9/L 11/03/2023 4:53 AM CDT [facility] Blood BLOOD SPECIMEN / Unknown Lab Venipuncture / Unknown 11/03/2023 4:17 AM CDT 11/03/2023 4:39 AM CDT Tamara Bauman MD LAB - HEMATOLOGY ORD ERABLES Performing Organization Address [facility]/ZIP Co de Phone Number [facility] [address] [place] [address] * MAGNESIUM BLOOD (11/03/2023 4:17 AM CDT) Magnesium 2.1 1.6 - 2.6 mg/dL 11/03/2023 5:00 AM CDT [facility] Blood BLOOD SPECIMEN / Unknown Lab Venipuncture / Unknown 11/03/2023 4:17 AM CDT 11/03/2023 4:39 AM CDT Tamara Bauman MD LAB - CHEMISTRY ORDMarj KLINE Performing Organization Address City/[facility]/ZIP Co de Phone Number [facility] [address] [place] [address] * (ABNORMAL) BASIC METABOLIC PANEL (CALCIUM TOTAL) (11/03/2023 4:17 AM CDT) Glucose 92 70 - 105 mg/dL 11/03/2023 5:00 AM CDT [facility] Sodium 138 136 - 145 mmol/L 11/03/2023 5:00 AM CDT [facility] Potassium 4.5 3.5 - 5.1 mmol/L 11/03/2023 5:00 AM CDT [facility] Chloride 107 98 - 107 mmol/L 11/03/2023 5:00 AM [facility] CO2 25 22 - 29 mmol/L 11/03/2023 5:00 AM [facility] Calcium 9.3 8.4 - 10.4 mg/dL 11/03/2023 5:00 AM [facility] Anion Gap 6 6 - 16 mmol/L 11/03/2023 5:00 AM [facility] BUN 25 7 - 26 mg/dL 11/03/2023 5:00 AM [facility] Creatinine 1.59(H) 0.72 - 1.25 mg/dL 11/03/2023 5:00 AM [facility] eGFR by CKD-EPI 45(L) >=90 mL/min/1.7 3 m2 11/03/2023 5:00 AM [facility] Blood BLOOD SPECIMEN / Unknown Lab Venipuncture / Unknown 11/03/2023 4:17 AM CDT 11/03/2023 4:39 AM CDT Ariel Martinez MD LAB - CHEMISTRY ORDE RABLES Performing Organization Address City/[facility]/ZIP Co de Phone Number [facility] [address] [place] [address] * GLUCOSE - POINT OF CARE (11/02/2023 9:18 PM CDT) Glucose WB/POC 94 70 - 106 mg/dL 11/03/2023 7:51 AM CDT [facility] Specimen Type Cap Fingerstick 2023 7:51 AM T [facility] Blood BLOOD SPECIMEN / Unknown 11/02/2023 9:18 PM CDT 11/03/2023 7:51 AM CDT Ariel Martinez MD LAB - POINT OF CARE ORDERABLES [facility] [address] [place] [address] * GLUCOSE - POINT OF CARE (11/02/2023 4:56 PM CDT) Glucose WB/POC 95 70 - 106 mg/dL 11/02/2023 7:42 PM CDT [facility] Specimen Type Arterial 11/02/2023 7:42 PM CDT [facility] Blood BLOOD SPECIMEN / Unknown 11/02/2023 4:56 PM CDT 11/02/2023 7:42 PM CDT Ariel Martinez MD LAB - POINT OF CARE ORDERABLES [facility] [address] [place] [address] * XR CHEST 1VW PORTABLE (11/02/2023 4:37 PM CDT) Anatomical Region Laterality Modality Chest Radiographic Shama [...] BLOOD GASES ARTERIAL (11/02/2023 4:23 PM CDT) pH Arterial 7.26(L) 7.35 - 7.45 pH 11/02/2023 4:27 PM CDT [facility] pCO2 Arterial 59(H) 35 - 45 mmHg 11/02/2023 4:27 PM CDT [facility] pO2 Arterial 133(H) 80 - 100 mmHg 11/02/2023 4:27 PM CDT [facility] HCO3 Arterial 26.5(H) 22.0 - 26.0 mmol/L 11/02/2023 4:27 PM CDT [facility] RESP THERAPY BE Arterial -1.7 -2.0 - 2.0 mmol/L 11/02/2023 4:27 PM CDT [facility] O2 Saturation Arterial 100 90 - 100 % 11/02/2023 4:27 PM CDT [facility] Malik's Test Positive 11/02/2023 4:27 PM CDT [facility] Sample Site Left RA 11/02/2023 4:27 PM CDT [facility] O2 Device Cannula 11/02/2023 4:27 PM CDT [facility] Liter Flow (LPM) 3 11/02/2023 4:27 PM CDT [facility] P/F Ratio 11/02/2023 4:27 PM CDT [facility] Comment:C^Incalculable Blood, arterial ARTERIAL BLOOD SPECIMEN / Unknown 11/02/2023 4:23 PM CDT 11/02/2023 4:23 PM CDT Ariel Martinez MD LAB - BLOOD GASES OR DERABLES [facility] [address] [place] [address], [facility] [phone] * CARDIAC EKG ORDER (11/02/2023 11:29 AM CDT) Narrative 11/02/2023 11:29 AM CDT Ordered by an unspecified provider. Scanned Document CARDIAC SERVICES ORD ERABLES * (ABNORMAL) GLUCOSE - POINT OF CARE (11/02/2023 11:23 AM CDT) [facility] Glucose WB/POC 108(H) 70 - 106 mg/dL 11/02/2023 11:46 AM CDT [facility] Specimen Type Arterial 11/02/2023 11:46 AM CDT [facility] Blood BLOOD SPECIMEN / Unknown 11/02/2023 11:23 AM CDT 11/02/2023 11:46 AM CDT Ariel Martinez MD LAB - POINT OF CARE ORDERABLES [facility] [address] [place] [address] * (ABNORMAL) CBC W AUTO DIFFERENTIAL (11/02/2023 8:10 AM CDT) [facility] WBC 7.7 4.0 - 10.7 x10E9/L 11/02/2023 8:23 AM CDT [facility] RBC Count 3.38(L) 4.30 - 5.80 x10E12/L 11/02/2023 8:23 AM CDT [facility] Hemoglobin 10.6(L) 13.3 - 17.5 g/dL 11/02/2023 8:23 AM CDT [facility] Hematocrit 34.3(L) 38.7 - 51.1 % 11/02/2023 8:23 AM CDT [facility] MCV 101.5(H) 80.0 - 98.0 fL 11/02/2023 8:23 AM CDT [facility] MCH 31.4 26.7 - 33.6 pg 11/02/2023 8:23 AM CDT [facility] MCHC 30.9(L) 31.7 - 36.3 g/dL 11/02/2023 8:23 AM [facility] RDW-CV 17.7(H) 11.3 - 14.8 % 11/02/2023 8:23 AM [facility] Platelet Count 171 150 - 420 x10E9/L 11/02/2023 8:23 AM [facility] MPV 13.2(H) 7.8 - 11.4 fL 11/02/2023 8:23 AM [facility] Neutrophil % 73.2 41.0 - 74.0 % 11/02/2023 8:23 AM [facility] Lymphocyte % 9.7(L) 17.0 - 47.0 % 11/02/2023 8:23 AM [facility] Monocyte % 10.9 3.0 - 11.0 % 11/02/2023 8:23 AM [facility] Eosinophil % 4.9 0.0 - 7.0 % 11/02/2023 8:23 AM [facility] Basophil % 0.4 0.0 - 1.6 % 11/02/2023 8:23 AM [facility] Immature Granulocytes % 0.9 0.0 - 1.0 % 11/02/2023 8:23 AM [facility] Neutrophil Absolute 5.65 1.60 - 7.50 x10E9/L 11/02/2023 8:23 AM [facility] Lymphocyte Absolute 0.75(L) 1.00 - 4.40 x10E9/L 11/02/2023 8:23 AM [facility] Monocyte Absolute 0.84 0.15 - 1.00 x10E9/L 11/02/2023 8:23 AM [facility] Eosinophil Absolute 0.38 0.00 - 0.60 x10E9/L 11/02/2023 8:23 AM [facility] Basophil Absolute 0.03 0.00 - 0.13 x10E9/L 11/02/2023 8:23 AM [facility] Blood BLOOD SPECIMEN / Unknown Lab Venipuncture / Unknown 11/02/2023 8:10 AM CDT 11/02/2023 8:14 AM CDT Tamara Bauman MD LAB - HEMATOLOGY ORD ERABLES Performing Organization Address City/[facility]/ZIP Co de Phone Number [facility] [address] [place] [address] * MAGNESIUM BLOOD (11/02/2023 8:10 AM CDT) Magnesium 1.9 1.6 - 2.6 mg/dL 11/02/2023 8:30 AM T [facility] Blood BLOOD SPECIMEN / Unknown Lab Venipuncture / Unknown 11/02/2023 8:10 AM CDT 11/02/2023 8:14 AM CDT Tamara Bauman MD LAB - CHEMISTRY ORDE RABANGELIA Performing Organization Address [facility]/ZIP Co de Phone Number [facility] [address] [place] [address] * (ABNORMAL) BASIC METABOLIC PANEL (CALCIUM TOTAL) (11/02/2023 8:10 AM CDT) Glucose 94 70 - 105 mg/dL 11/02/2023 8:30 AM [facility] Sodium 139 136 - 145 mmol/L 11/02/2023 8:30 AM [facility] Potassium 4.4 3.5 - 5.1 mmol/L 11/02/2023 8:30 AM [facility] Chloride 108(H) 98 - 107 mmol/L 11/02/2023 8:30 AM [facility] CO2 23 22 - 29 mmol/L 11/02/2023 8:30 AM [facility] Calcium 8.9 8.4 - 10.4 mg/dL 11/02/2023 8:30 AM [facility] Anion Gap 8 6 - 16 mmol/L 11/02/2023 8:30 AM [facility] BUN 22 7 - 26 mg/dL 11/02/2023 8:30 AM [facility] Creatinine 1.44(H) 0.72 - 1.25 mg/dL 11/02/2023 8:30 AM [facility] eGFR by CKD-EPI 51(L) >=90 mL/min/1.7 3 m2 11/02/2023 8:30 AM CDT [facility] Blood BLOOD SPECIMEN / Unknown Lab Venipuncture / Unknown 11/02/2023 8:10 AM CDT 11/02/2023 8:14 AM CDT Ada Angulo [employer] LAB - CHEMISTRY ORDERABLES Performing Organization Address City/[facility]/ZIP Co de Phone Number [facility] [address] [place] [address] * GLUCOSE - POINT OF CARE (11/02/2023 7:52 AM CDT) Glucose WB/POC 98 70 - 106 mg/dL 11/02/2023 8:32 AM CDT [facility] Specimen Type Arterial 11/02/2023 8:32 AM CDT [facility] Blood BLOOD SPECIMEN / Unknown 11/02/2023 7:52 AM CDT 11/02/2023 8:32 AM CDT Ariel Martinez MD LAB - POINT OF CARE ORDERABLES Performing Organization Address [facility]/ZIP Co de Phone Number [facility] [address] [place] [address] * (ABNORMAL) GLUCOSE - POINT OF CARE (11/01/2023 8:38 PM CDT) Glucose WB/POC 124(H) 70 - 106 mg/dL 11/01/2023 8:48 PM CDT [facility] Specimen Type Cap Fingerstick 2023 8:48 PM CDT [facility] Blood BLOOD SPECIMEN / Unknown 11/01/2023 8:38 PM CDT 11/01/2023 8:48 PM CDT Ariel Martinez MD LAB - POINT OF CARE ORDERABLES [facility] [address] [place] [address] * (ABNORMAL) GLUCOSE - POINT OF CARE (11/01/2023 5:18 PM CDT) Glucose WB/POC 135(H) 70 - 106 mg/dL 11/01/2023 5:34 PM CDT [facility] Specimen Type Arterial 11/01/2023 5:34 PM CDT [facility] Blood BLOOD SPECIMEN / Unknown 11/01/2023 5:18 PM CDT 11/01/2023 5:34 PM CDT Ariel Martinez MD LAB - POINT OF CARE ORDERABLES Performing Organization Address City/[facility]/ZIP Co de Phone Number [facility] [address] [place] [address] * (ABNORMAL) GLUCOSE - POINT OF CARE (11/01/2023 11:39 AM CDT) Glucose WB/POC 126(H) 70 - 106 mg/dL 11/01/2023 1:07 PM CDT [facility] Specimen Type Arterial 11/01/2023 1:07 PM CDT [facility] Blood BLOOD SPECIMEN / Unknown 11/01/2023 11:39 AM CDT 11/01/2023 1:07 PM CDT Ariel Martinez MD LAB - POINT OF CARE ORDERABLES Performing Organization Address [facility] Co de Phone Number [facility] [address] [place] [address] * (ABNORMAL) GLUCOSE - POINT OF CARE (11/01/2023 7:34 AM CDT) Glucose WB/POC 113(H) 70 - 106 mg/dL 11/01/2023 7:44 AM CDT [facility] Specimen Type Arterial 11/01/2023 7:44 AM CDT [facility] Blood BLOOD SPECIMEN / Unknown 11/01/2023 7:34 AM CDT 11/01/2023 7:44 AM CDT Ariel Martinez MD LAB - POINT OF CARE ORDERABLES Performing Organization Address City/[facility]/ZIP Co de Phone Number [facility] [address] [place] [address] * (ABNORMAL) CBC W AUTO DIFFERENTIAL (11/01/2023 5:02 AM CDT) WBC 9.4 4.0 - 10.7 x10E9/L 11/01/2023 5:13 AM CDT [facility] RBC Count 3.45(L) 4.30 - 5.80 x10E12/L 11/01/2023 5:13 AM CDT [facility] Hemoglobin 10.9(L) 13.3 - 17.5 g/dL 11/01/2023 5:13 AM CDT [facility] Hematocrit 35.5(L) 38.7 - 51.1 % 11/01/2023 5:13 AM CDT [facility] MCV 102.9(H) 80.0 - 98.0 fL 11/01/2023 5:13 AM CDT [facility] MCH 31.6 26.7 - 33.6 pg 11/01/2023 5:13 AM CDT [facility] MCHC 30.7(L) 31.7 - 36.3 g/dL 11/01/2023 5:13 AM CDT [facility] RDW-CV 17.6(H) 11.3 - 14.8 % 11/01/2023 5:13 AM CDT [facility] Platelet Count 202 150 - 420 x10E9/L 11/01/2023 5:13 AM CDT [facility] MPV 13.2(H) 7.8 - 11.4 fL 11/01/2023 5:13 AM CDT [facility] Neutrophil % 75.0(H) 41.0 - 74.0 % 11/01/2023 5:13 AM CDT [facility] Lymphocyte % 9.8(L) 17.0 - 47.0 % 11/01/2023 5:13 AM CDT [facility] Monocyte % 10.3 3.0 - 11.0 % 11/01/2023 5:13 AM CDT [facility] Eosinophil % 3.5 0.0 - 7.0 % 11/01/2023 5:13 AM CDT [facility] Basophil % 0.5 0.0 - 1.6 % 11/01/2023 5:13 AM CDT [facility] Immature Granulocytes % 0.9 0.0 - 1.0 % 11/01/2023 5:13 AM CDT [facility] Neutrophil Absolute 7.05 1.60 - 7.50 x10E9/L 11/01/2023 5:13 AM CDT [facility] Lymphocyte Absolute 0.92(L) 1.00 - 4.40 x10E9/L 11/01/2023 5:13 AM CDT [facility] Monocyte Absolute 0.97 0.15 - 1.00 x10E9/L 11/01/2023 5:13 AM CDT [facility] Eosinophil Absolute 0.33 0.00 - 0.60 x10E9/L 11/01/2023 5:13 AM CDT [facility] Basophil Absolute 0.05 0.00 - 0.13 x10E9/L 11/01/2023 5:13 AM CDT [facility] Blood BLOOD SPECIMEN / Unknown Lab Venipuncture / Unknown 11/01/2023 5:02 AM CDT 11/01/2023 5:05 AM CDT Tamara Bauman MD LAB - HEMATOLOGY ORD ERABLES [facility] [address] [place] [address] * MAGNESIUM BLOOD (11/01/2023 5:02 AM CDT) Pathologist [facility] Magnesium 1.8 1.6 - 2.6 mg/dL 11/01/2023 5:26 AM CDT [facility] Blood BLOOD SPECIMEN / Unknown Lab Venipuncture / Unknown 11/01/2023 5:02 AM CDT 11/01/2023 5:05 AM CDT Tamara Bauman MD LAB - CHEMISTRY ORDE RAISA [facility] [address] [place] [address] * (ABNORMAL) B-TYPE NATRIURETIC PEPTIDE (11/01/2023 5:02 AM CDT) BNP 673(H) <=100 pg/mL 11/01/2023 5:30 AM CDT [facility] Blood BLOOD SPECIMEN / Unknown Lab Venipuncture / Unknown 11/01/2023 5:02 AM CDT 11/01/2023 5:05 AM CDT Tiffany Fortune MD LAB - CHEMISTRY ROYCE KLINE Performing Organization Address City/[facility]/ZIP Co de Phone Number [facility] [address] [place] [address] * (ABNORMAL) LIPID PROFILE (11/01/2023 5:02 AM CDT) Cholesterol 100 <200 mg/dL 11/01/2023 5:26 AM CDT [facility] Triglycerides 74 <150 mg/dL 11/01/2023 5:26 AM [facility] HDL Cholesterol 33(L) >40 mg/dL 4 5:26 AM [facility] LDL Calculated 52 <130 mg/dL 11/01/2023 5:26 AM [facility] VLDL Calculated 15 <=30 mg/dL 4 5:26 AM [facility] Chol HDL Ratio 3.0 <4.5 11/01/2023 5:26 AM [facility] LDL/HDL Ratio 1.6 <5.0 11/01/2023 5:26 AM T [facility] Blood BLOOD SPECIMEN / Unknown Lab Venipuncture / Unknown 11/01/2023 5:02 AM CDT 11/01/2023 5:05 AM CDT Mary Cote MD LAB - CHEMISTRY ROYCE KLINE [facility] [address] [place] [address] * (ABNORMAL) GLUCOSE - POINT OF CARE (10/31/2023 8:19 PM CDT) Glucose WB/POC 112(H) 70 - 106 mg/dL 10/31/2023 8:26 PM CDT [facility] Specimen Type Arterial 10/31/2023 8:26 PM CDT [facility] Blood BLOOD SPECIMEN / Unknown 10/31/2023 8:19 PM CDT 10/31/2023 8:26 PM CDT Dipak Padilla MD LAB - POINT OF CARE ORDERABLES [facility] [address] [place] [address] * (ABNORMAL) GLUCOSE - POINT OF CARE (10/31/2023 5:28 PM CDT) Glucose WB/POC 112(H) 70 - 106 mg/dL 10/31/2023 6:03 PM CDT [facility] Specimen Type Arterial 10/31/2023 6:03 PM CDT [facility] Blood BLOOD SPECIMEN / Unknown 10/31/2023 5:28 PM CDT 10/31/2023 6:03 PM CDT Dipak Padilla MD LAB - POINT OF CARE ORDERABLES Performing Organization Address City/[facility]/ZIP Co de Phone Number [facility] [address] [place] [address] * GLUCOSE - POINT OF CARE (10/31/2023 12:01 PM CDT) Glucose WB/POC 104 70 - 106 mg/dL 10/31/2023 12:15 PM CDT [facility] Specimen Type Arterial 10/31/2023 12:15 PM CDT [facility] Blood BLOOD SPECIMEN / Unknown 10/31/2023 12:01 PM CDT 10/31/2023 12:15 PM CDT Dipak Padilla MD LAB - POINT OF CARE ORDERABLES [facility] [address] [place] [address] * GLUCOSE - POINT OF CARE (10/31/2023 8:38 AM CDT) Glucose WB/POC 93 70 - 106 mg/dL 10/31/2023 8:44 AM CDT [facility] Specimen Type Arterial 10/31/2023 8:44 AM CDT [facility] Blood BLOOD SPECIMEN / Unknown 10/31/2023 8:38 AM CDT 10/31/2023 8:44 AM CDT Dipak Padilla MD LAB - POINT OF CARE ORDERABLES [facility] [address] [place] [address] * XR CHEST 1VW PORTABLE (10/31/2023 5:29 AM CDT) Anatomical Region Laterality Modality Chest Radiographic Shama ging 10/31/2023 12:5 6 PM CDT Impressions 10/31/2023 12:57 PM CDT IMPRESSION: Stable chest radiograph with retrocardiac airspace disease and trace left pleural effusion > Interpreting Provider: Mireya Denson MD on 10/31/2023 12:57 PM Narrative 10/31/2023 12:57 PM CDT INDICATION: Follow-up of acute respiratory failure COMPARISON: 10/24/2023 TECHNIQUE: Frontal radiograph of the chest. FINDINGS: Grossly stable appearance of retrocardiac airspace disease with trace left pleural effusion. No pneumothorax. Stable appearance of the cardiomediastinal silhouette. The right lung remains grossly clear. Procedure Note Mireya Denson MD - 10/31/2023 INDICATION: Follow-up of acute respiratory failure COMPARISON: 10/24/2023 TECHNIQUE: Frontal radiograph of the chest. FINDINGS: Grossly stable appearance of retrocardiac airspace disease with traceleft pleural effusion. No pneumothorax. Stable appearance of the cardiomediastinal silhouette. The right lung remains grossly clear. IMPRESSION: Stable chest radiograph with retrocardiac airspace disease and traceleft pleural effusion > Interpreting Provider: Mireya Denson MD on 10/31/2023 12:57 PM Tiffany Fortune MD DIAGNOSTIC IMAGING O RDERABLES * (ABNORMAL) CBC W AUTO DIFFERENTIAL (10/31/2023 4:31 AM CDT) [facility] Signature WBC 9.0 4.0 - 10.7 x10E9/L 10/31/2023 4:57 AM CDT [facility] RBC Count 3.35(L) 4.30 - 5.80 x10E12/L 10/31/2023 4:57 [facility] Hemoglobin 10.5(L) 13.3 - 17.5 g/dL 10/31/2023 4:57 AM CDT [facility] Hematocrit 32.9(L) 38.7 - 51.1 % 10/31/2023 4:57 [facility] MCV 98.2(H) 80.0 - 98.0 fL 10/31/2023 4:57 AM CDT [facility] MCH 31.3 26.7 - 33.6 pg 10/31/2023 4:57 AM CDT [facility] MCHC 31.9 31.7 - 36.3 g/dL 10/31/2023 4:57 AM [facility] RDW-CV 17.2(H) 11.3 - 14.8 % 10/31/2023 4:57 AM [facility] Platelet Count 219 150 - 420 x10E9/L 10/31/2023 4:57 AM CDT [facility] MPV 13.6(H) 7.8 - 11.4 fL 10/31/2023 4:57 AM [facility] Neutrophil % 74.0 41.0 - 74.0 % 10/31/2023 4:57 AM CDT [facility] Lymphocyte % 9.6(L) 17.0 - 47.0 % 10/31/2023 4:57 AM CDT [facility] Monocyte % 11.0 3.0 - 11.0 % 10/31/2023 4:57 AM CDT [facility] Eosinophil % 3.7 0.0 - 7.0 % 10/31/2023 4:57 AM CDT [facility] Basophil % 0.8 0.0 - 1.6 % 10/31/2023 4:57 AM CDT [facility] Immature Granulocytes % 0.9 0.0 - 1.0 % 10/31/2023 4:57 AM CDT [facility] Neutrophil Absolute 6.63 1.60 - 7.50 x10E9/L 10/31/2023 4:57 AM CDT [facility] Lymphocyte Absolute 0.86(L) 1.00 - 4.40 x10E9/L 10/31/2023 4:57 AM CDT [facility] Monocyte Absolute 0.99 0.15 - 1.00 x10E9/L 10/31/2023 4:57 AM CDT [facility] Eosinophil Absolute 0.33 0.00 - 0.60 x10E9/L 10/31/2023 4:57 AM CDT [facility] Basophil Absolute 0.07 0.00 - 0.13 x10E9/L 10/31/2023 4:57 AM CDT [facility] Blood BLOOD SPECIMEN / Unknown Lab Venipuncture / Unknown 10/31/2023 4:31 AM CDT 10/31/2023 4:42 AM CDT Tamara Bauman MD LAB - HEMATOLOGY ORD ERABLES [facility] [address] [place] [address] * MAGNESIUM BLOOD (10/31/2023 4:31 AM CDT) [facility] Magnesium 1.8 1.6 - 2.6 mg/dL 10/31/2023 5:29 AM CDT [facility] Blood BLOOD SPECIMEN / Unknown Lab Venipuncture / Unknown 10/31/2023 4:31 AM CDT 10/31/2023 4:42 AM CDT Tamara Bauman MD LAB - CHEMISTRY ROYCE KLINE Performing Organization Address City/[facility]/ZIP Co de Phone Number [facility] [address] [place] [address] * (ABNORMAL) GLUCOSE - POINT OF CARE (10/30/2023 7:29 PM CDT) Pathologist [facility] Glucose WB/POC 125(H) 70 - 106 mg/dL 10/30/2023 7:39 PM CDT [facility] Specimen Type Cap Fingerstick 2023 7:39 PM CDT [facility] Blood BLOOD SPECIMEN / Unknown 10/30/2023 7:29 PM CDT 10/30/2023 7:39 PM CDT Dipak Padilla MD LAB - POINT OF CARE ORDERABLES Performing Organization Address City/[facility]/ZIP Co de Phone Number [facility] [address] [place] [address] * (ABNORMAL) GLUCOSE - POINT OF CARE (10/30/2023 6:15 PM CDT) Glucose WB/POC 114(H) 70 - 106 mg/dL 10/30/2023 6:24 PM CDT [facility] Specimen Type Cap Fingerstick 2023 6:24 PM CDT [facility] Blood BLOOD SPECIMEN / Unknown 10/30/2023 6:15 PM CDT 10/30/2023 6:24 PM CDT Dipak Padilla MD LAB - POINT OF CARE ORDERABLES Performing Organization Address [facility]/ZIP Co de Phone Number [facility] [address] [place] [address] * (ABNORMAL) GLUCOSE - POINT OF CARE (10/30/2023 6:06 PM CDT) Glucose WB/POC 135(H) 70 - 106 mg/dL 10/30/2023 6:16 PM CDT [facility] Specimen Type Cap Fingerstick 2023 6:16 PM CDT [facility] Blood BLOOD SPECIMEN / Unknown 10/30/2023 6:06 PM CDT 10/30/2023 6:15 PM CDT Dipak Padilla MD LAB - POINT OF CARE ORDERABLES [facility] [address] [place] [address] * (ABNORMAL) GLUCOSE - POINT OF CARE (10/30/2023 1:02 PM CDT) Glucose WB/POC 129(H) 70 - 106 mg/dL 10/30/2023 1:16 PM CDT [facility] Specimen Type Cap Fingerstick 2023 1:16 PM CDT [facility] Blood BLOOD SPECIMEN / Unknown 10/30/2023 1:02 PM CDT 10/30/2023 1:16 PM CDT Dipak Padilla MD LAB - POINT OF CARE ORDERABLES Performing Organization Address City/[facility]/ZIP Co de Phone Number [facility] [address] [place] [address] * GLUCOSE - POINT OF CARE (10/30/2023 9:09 AM CDT) Glucose WB/POC 96 70 - 106 mg/dL 10/30/2023 9:18 AM CDT [facility] Specimen Type Cap Fingerstick 2023 9:18 AM CDT [facility] Blood BLOOD SPECIMEN / Unknown 10/30/2023 9:09 AM CDT 10/30/2023 9:18 AM CDT Dipak Padilla MD LAB - POINT OF CARE ORDERABLES Performing Organization Address City/[facility]/ZIP Co de Phone Number [facility] [address] [place] [address] * (ABNORMAL) BASIC METABOLIC PANEL (CALCIUM TOTAL) (10/30/2023 4:35 AM CDT) Glucose 97 70 - 105 mg/dL 10/30/2023 9:11 AM CDT [facility] Sodium 133(L) 136 - 145 mmol/L 10/30/2023 9:11 AM CDT [facility] Potassium 4.1 3.5 - 5.1 mmol/L 10/30/2023 9:11 AM CDT [facility] Chloride 107 98 - 107 mmol/L 10/30/2023 9:11 AM CDT [facility] CO2 20(L) 22 - 29 mmol/L 10/30/2023 9:11 AM CDT [facility] Calcium 9.0 8.4 - 10.4 mg/dL 10/30/2023 9:11 AM CDT [facility] Anion Gap 6 6 - 16 mmol/L 10/30/2023 9:11 AM CDT [facility] BUN 22 7 - 26 mg/dL 10/30/2023 9:11 AM CDT [facility] Creatinine 1.06 0.72 - 1.25 mg/dL 10/30/2023 9:11 AM CDT [facility] eGFR by CKD-EPI 74(L) >=90 mL/min/1.7 3 m2 10/30/2023 9:11 AM CDT [facility] Blood BLOOD SPECIMEN / Unknown Lab Venipuncture / Unknown 10/30/2023 4:35 AM CDT 10/30/2023 4:38 AM CDT Ada Angulo [employer] LAB - CHEMISTRY ORDERABLES [facility] [address] [place] [address] * (ABNORMAL) CBC W AUTO DIFFERENTIAL (10/30/2023 4:35 AM CDT) WBC 8.2 4.0 - 10.7 x10E9/L 10/30/2023 4:47 AM [facility] RBC Count 3.30(L) 4.30 - 5.80 x10E12/L 10/30/2023 4:47 AM CDT [facility] Hemoglobin 10.4(L) 13.3 - 17.5 g/dL 10/30/2023 4:47 AM CDT [facility] Hematocrit 32.0(L) 38.7 - 51.1 % 10/30/2023 4:47 AM CDT [facility] MCV 97.0 80.0 - 98.0 fL 10/30/2023 4:47 AM CDT [facility] MCH 31.5 26.7 - 33.6 pg 10/30/2023 4:47 AM CDT [facility] MCHC 32.5 31.7 - 36.3 g/dL 10/30/2023 4:47 AM CDT [facility] RDW-CV 17.4(H) 11.3 - 14.8 % 10/30/2023 4:47 AM [facility] Platelet Count 228 150 - 420 x10E9/L 10/30/2023 4:47 AM [facility] MPV 13.5(H) 7.8 - 11.4 fL 10/30/2023 4:47 AM [facility] Neutrophil % 73.5 41.0 - 74.0 % 10/30/2023 4:47 AM [facility] Lymphocyte % 11.5(L) 17.0 - 47.0 % 10/30/2023 4:47 AM [facility] Monocyte % 9.9 3.0 - 11.0 % 10/30/2023 4:47 AM [facility] Eosinophil % 3.5 0.0 - 7.0 % 10/30/2023 4:47 AM [facility] Basophil % 0.7 0.0 - 1.6 % 10/30/2023 4:47 AM [facility] Immature Granulocytes % 0.9 0.0 - 1.0 % 10/30/2023 4:47 AM [facility] Neutrophil Absolute 6.03 1.60 - 7.50 x10E9/L 10/30/2023 4:47 AM [facility] Lymphocyte Absolute 0.94(L) 1.00 - 4.40 x10E9/L 10/30/2023 4:47 AM [facility] Monocyte Absolute 0.81 0.15 - 1.00 x10E9/L 10/30/2023 4:47 AM [facility] Eosinophil Absolute 0.29 0.00 - 0.60 x10E9/L 10/30/2023 4:47 AM [facility] Basophil Absolute 0.06 0.00 - 0.13 x10E9/L 10/30/2023 4:47 AM [facility] Blood BLOOD SPECIMEN / Unknown Lab Venipuncture / Unknown 10/30/2023 4:35 AM CDT 10/30/2023 4:38 AM CDT Tamara Bauman MD LAB - HEMATOLOGY ORD ERABLES Performing Organization Address City/[facility]/ZIP Co de Phone Number [facility] [address] [place] [address] * MAGNESIUM BLOOD (10/30/2023 4:35 AM CDT) Magnesium 1.6 1.6 - 2.6 mg/dL 10/30/2023 5:06 AM CDT [facility] Blood BLOOD SPECIMEN / Unknown Lab Venipuncture / Unknown 10/30/2023 4:35 AM CDT 10/30/2023 4:38 AM CDT Tamara Bauman MD LAB - CHEMISTRY ROYCE KLINE Performing Organization Address [facility]/ZIP Co de Phone Number [facility] [address] [place] [address] * (ABNORMAL) GLUCOSE - POINT OF CARE (10/29/2023 7:44 PM CDT) Glucose WB/POC 139(H) 70 - 106 mg/dL 10/29/2023 8:17 PM CDT [facility] Specimen Type Cap Fingerstick 2023 8:17 PM CDT [facility] Blood BLOOD SPECIMEN / Unknown 10/29/2023 7:44 PM CDT 10/29/2023 8:17 PM CDT Dipak Padilla MD LAB - POINT OF CARE ORDERABLES Performing Organization Address [facility]/ZIP Co de Phone Number [facility] [address] [place] [address] * GLUCOSE - POINT OF CARE (10/29/2023 5:53 PM CDT) Glucose WB/POC 104 70 - 106 mg/dL 10/29/2023 6:02 PM CDT [facility] Specimen Type Cap Fingerstick 2023 6:02 PM CDT [facility] Blood BLOOD SPECIMEN / Unknown 10/29/2023 5:53 PM CDT 10/29/2023 6:02 PM CDT Dipak Padilla MD LAB - POINT OF CARE ORDERABLES Performing Organization Address [facility]/ZIP Co de Phone Number [facility] [address] [place] [address] * GLUCOSE - POINT OF CARE (10/29/2023 12:37 PM CDT) Glucose WB/POC 98 70 - 106 mg/dL 10/29/2023 12:47 PM CDT [facility] Specimen Type Cap Fingerstick 2023 12:47 PM CDT [facility] Blood BLOOD SPECIMEN / Unknown 10/29/2023 12:37 PM CDT 10/29/2023 12:47 PM CDT Dipak Padilla MD LAB - POINT OF CARE ORDERABLES Performing Organization Address [facility] de Phone Number [facility] [address] [place] [address] * GLUCOSE - POINT OF CARE (10/29/2023 7:35 AM CDT) Glucose WB/POC 76 70 - 106 mg/dL 10/29/2023 7:44 AM CDT [facility] Specimen Type Cap Fingerstick 2023 7:44 AM CDT [facility] Blood BLOOD SPECIMEN / Unknown 10/29/2023 7:35 AM CDT 10/29/2023 7:44 AM CDT Dipak Padilla MD LAB - POINT OF CARE ORDERABLES Performing Organization Address [facility]/ZIP Co de Phone Number [facility] [address] [place] [address] * (ABNORMAL) CBC W AUTO DIFFERENTIAL (10/29/2023 4:41 AM CDT) WBC 8.1 4.0 - 10.7 x10E9/L 10/29/2023 5:20 AM CDT [facility] RBC Count 3.11(L) 4.30 - 5.80 x10E12/L 10/29/2023 5:20 AM [facility] Hemoglobin 9.8(L) 13.3 - 17.5 g/dL 10/29/2023 5:20 AM [facility] Hematocrit 31.2(L) 38.7 - 51.1 % 10/29/2023 5:20 AM [facility] MCV 100.3(H) 80.0 - 98.0 fL 10/29/2023 5:20 AM [facility] MCH 31.5 26.7 - 33.6 pg 10/29/2023 5:20 AM [facility] MCHC 31.4(L) 31.7 - 36.3 g/dL 10/29/2023 5:20 AM [facility] RDW-CV 17.5(H) 11.3 - 14.8 % 10/29/2023 5:20 AM [facility] Platelet Count 216 150 - 420 x10E9/L 10/29/2023 5:20 AM [facility] MPV 14.1(H) 7.8 - 11.4 fL 10/29/2023 5:20 AM [facility] Neutrophil % 68.2 41.0 - 74.0 % 10/29/2023 5:20 AM [facility] Lymphocyte % 13.9(L) 17.0 - 47.0 % 10/29/2023 5:20 AM [facility] Monocyte % 11.8(H) 3.0 - 11.0 % 10/29/2023 5:20 AM [facility] Eosinophil % 4.3 0.0 - 7.0 % 10/29/2023 5:20 AM [facility] Basophil % 0.7 0.0 - 1.6 % 10/29/2023 5:20 AM [facility] Immature Granulocytes % 1.1(H) 0.0 - 1.0 % 10/29/2023 5:20 AM [facility] Neutrophil Absolute 5.51 1.60 - 7.50 x10E9/L 10/29/2023 5:20 AM [facility] Lymphocyte Absolute 1.12 1.00 - 4.40 x10E9/L 10/29/2023 5:20 AM CDT [facility] Monocyte Absolute 0.95 0.15 - 1.00 x10E9/L 10/29/2023 5:20 AM CDT [facility] Eosinophil Absolute 0.35 0.00 - 0.60 x10E9/L 10/29/2023 5:20 AM CDT [facility] Basophil Absolute 0.06 0.00 - 0.13 x10E9/L 10/29/2023 5:20 AM CDT [facility] Blood BLOOD SPECIMEN / Unknown Lab Venipuncture / Unknown 10/29/2023 4:41 AM CDT 10/29/2023 5:14 AM CDT Tamara Bauman MD LAB - HEMATOLOGY ORD ERABLES [facility] [address] [place] [address] * MAGNESIUM BLOOD (10/29/2023 4:41 AM CDT) Magnesium 1.8 1.6 - 2.6 mg/dL 10/29/2023 5:42 AM CDT [facility] Blood BLOOD SPECIMEN / Unknown Lab Venipuncture / Unknown 10/29/2023 4:41 AM CDT 10/29/2023 5:13 AM CDT Tamara Bauman MD LAB - CHEMISTRY ORDE RABANGELIA [facility] [address] [place] [address] * (ABNORMAL) GLUCOSE - POINT OF CARE (10/28/2023 7:53 PM CDT) Glucose WB/POC 160(H) 70 - 106 mg/dL 10/28/2023 8:50 PM CDT [facility] Specimen Type Cap Fingerstick 2023 8:50 PM CDT [facility] Blood BLOOD SPECIMEN / Unknown 10/28/2023 7:53 PM CDT 10/28/2023 8:50 PM CDT Dipak Padilla MD LAB - POINT OF CARE ORDERABLES Performing Organization Address [facility]/ZIP Co de Phone Number [facility] [address] [place] [address] * (ABNORMAL) GLUCOSE - POINT OF CARE (10/28/2023 4:36 PM CDT) Glucose WB/POC 123(H) 70 - 106 mg/dL 10/28/2023 4:47 PM CDT [facility] Specimen Type Cap Fingerstick 2023 4:47 PM CDT [facility] Blood BLOOD SPECIMEN / Unknown 10/28/2023 4:36 PM CDT 10/28/2023 4:47 PM CDT Dipak Padilla MD LAB - POINT OF CARE ORDERABLES Performing Organization Address [facility] Co de Phone Number [facility] [address] [place] [address] * (ABNORMAL) GLUCOSE - POINT OF CARE (10/28/2023 12:40 PM CDT) Glucose WB/POC 111(H) 70 - 106 mg/dL 10/28/2023 12:49 PM CDT [facility] Specimen Type Arterial 10/28/2023 12:49 PM CDT [facility] Blood BLOOD SPECIMEN / Unknown 10/28/2023 12:40 PM CDT 10/28/2023 12:49 PM CDT Dipak Padilla MD LAB - POINT OF CARE ORDERABLES Performing Organization Address [facility]/ZIP Co de Phone Number [facility] [address] [place] [address] * (ABNORMAL) GLUCOSE - POINT OF CARE (10/28/2023 12:16 PM CDT) Glucose WB/POC 113(H) 70 - 106 mg/dL 10/28/2023 12:28 PM CDT [facility] Specimen Type Cap Fingerstick 2023 12:28 PM CDT [facility] Blood BLOOD SPECIMEN / Unknown 10/28/2023 12:16 PM CDT 10/28/2023 12:28 PM CDT Dipak Padilla MD LAB - POINT OF CARE ORDERABLES Performing Organization Address [facility]/ZIP Co de Phone Number [facility] [address] [place] [address] * GLUCOSE - POINT OF CARE (10/28/2023 7:57 AM CDT) [facility] Glucose WB/POC 101 70 - 106 mg/dL 10/28/2023 8:51 AM CDT [facility] Specimen Type Cap Fingerstick 2023 8:51 AM CDT [facility] Blood BLOOD SPECIMEN / Unknown 10/28/2023 7:57 AM CDT 10/28/2023 8:51 AM CDT Dipak Padilla MD LAB - POINT OF CARE ORDERABLES Performing Organization Address [facility] Co de Phone Number [facility] [address] [place] [address] * (ABNORMAL) CBC W AUTO DIFFERENTIAL (10/28/2023 3:58 AM CDT) [facility] WBC 12.7(H) 4.0 - 10.7 x10E9/L 10/28/2023 5:09 AM CDT [facility] RBC Count 3.22(L) 4.30 - 5.80 x10E12/L 10/28/2023 5:09 AM [facility] Hemoglobin 10.1(L) 13.3 - 17.5 g/dL 10/28/2023 5:09 AM CDT [facility] Hematocrit 31.7(L) 38.7 - 51.1 % 10/28/2023 5:09 AM [facility] MCV 98.4(H) 80.0 - 98.0 fL 10/28/2023 5:09 AM CDT [facility] MCH 31.4 26.7 - 33.6 pg 10/28/2023 5:09 AM CDT [facility] MCHC 31.9 31.7 - 36.3 g/dL 10/28/2023 5:09 AM [facility] RDW-CV 17.4(H) 11.3 - 14.8 % 10/28/2023 5:09 AM [facility] Platelet Count 199 150 - 420 x10E9/L 10/28/2023 5:09 AM [facility] MPV 14.7(H) 7.8 - 11.4 fL 10/28/2023 5:09 AM [facility] Neutrophil % 81.8(H) 41.0 - 74.0 % 10/28/2023 5:09 AM [facility] Lymphocyte % 6.4(L) 17.0 - 47.0 % 10/28/2023 5:09 AM [facility] Monocyte % 10.4 3.0 - 11.0 % 10/28/2023 5:09 AM [facility] Eosinophil % 0.2 0.0 - 7.0 % 10/28/2023 5:09 AM [facility] Basophil % 0.2 0.0 - 1.6 % 10/28/2023 5:09 AM [facility] Immature Granulocytes % 1.0 0.0 - 1.0 % 10/28/2023 5:09 AM [facility] Neutrophil Absolute 10.34(H) 1.60 - 7.50 x10E9/L 10/28/2023 5:09 AM [facility] Lymphocyte Absolute 0.81(L) 1.00 - 4.40 x10E9/L 10/28/2023 5:09 AM [facility] Monocyte Absolute 1.31(H) 0.15 - 1.00 x10E9/L 10/28/2023 5:09 AM [facility] Eosinophil Absolute 0.03 0.00 - 0.60 x10E9/L 10/28/2023 5:09 AM [facility] Basophil Absolute 0.03 0.00 - 0.13 x10E9/L 10/28/2023 5:09 AM [facility] Blood BLOOD SPECIMEN / Unknown Lab Venipuncture / Unknown 10/28/2023 3:58 AM CDT 10/28/2023 4:56 AM CDT Tamara Bauman MD LAB - HEMATOLOGY ORD ERABLES Performing Organization Address [facility]/ZIP Co de Phone Number [facility] [address] [place] [address] * MAGNESIUM BLOOD (10/28/2023 3:58 AM CDT) Magnesium 1.9 1.6 - 2.6 mg/dL 10/28/2023 5:26 AM CDT [facility] Blood BLOOD SPECIMEN / Unknown Lab Venipuncture / Unknown 10/28/2023 3:58 AM CDT 10/28/2023 4:56 AM CDT Tamara Bauman MD LAB - CHEMISTRY ORDE RABLES Performing Organization Address [facility]/ZIP Co de Phone Number [facility] [address] [place] [address] * (ABNORMAL) GLUCOSE - POINT OF CARE (10/27/2023 8:03 PM CDT) Glucose WB/POC 188(H) 70 - 106 mg/dL 10/27/2023 8:13 PM CDT [facility] Specimen Type Cap Fingerstick 2023 8:13 PM CDT [facility] Blood BLOOD SPECIMEN / Unknown 10/27/2023 8:03 PM CDT 10/27/2023 8:13 PM CDT Dipak Padilla MD LAB - POINT OF CARE ORDERABLES Performing Organization Address City/[facility]/ZIP Co de Phone Number [facility] [address] [place] [address] * (ABNORMAL) GLUCOSE - POINT OF CARE (10/27/2023 5:04 PM CDT) Glucose WB/POC 134(H) 70 - 106 mg/dL 10/27/2023 5:14 PM CDT [facility] Specimen Type Cap Fingerstick 2023 5:14 PM CDT [facility] Blood BLOOD SPECIMEN / Unknown 10/27/2023 5:04 PM CDT 10/27/2023 5:14 PM CDT Dipak Padilla MD LAB - POINT OF CARE ORDERABLES [facility] [address] [place] [address] * (ABNORMAL) GLUCOSE - POINT OF CARE (10/27/2023 12:17 PM CDT) [facility] Glucose WB/POC 129(H) 70 - 106 mg/dL 10/27/2023 12:27 PM CDT [facility] Specimen Type Arterial 10/27/2023 12:27 PM CDT [facility] Blood BLOOD SPECIMEN / Unknown 10/27/2023 12:17 PM CDT 10/27/2023 12:27 PM CDT Dipak Padilla MD LAB - POINT OF CARE ORDERABLES [facility] [address] [place] [address] * VAS RIGHT VENOUS DUPLEX UE (10/27/2023 9:33 AM CDT) Anatomical Region Laterality Modality Upper Extremity Intravascular Ul trasound 10/27/2023 9:08 AM CDT Narrative 10/27/2023 9:40 AM CDT ?[facility] ?[address] ?[place], [place] ??[address] ? Upper Extremity Venous Ultrasound Report ? Pat.Name: ??JOSÉ MIGUEL KEYS ? Pat.ID: ?[id number] ? St.Date: ?? 10/27/2023 ? Refer.MD: ??Dipak Padilla ? Exam Time: 9:08:00 AM ?Study Type:UE Venous ?Age: ??1950,72Y ?Sex: ? MALE ? Sonogrphr: MOMO SolanoT ?Pat. Stat.:Inpatient ? Room: ?435 ? CPT - 4: ?57932 ? Reason for Study: Swelling -Arm/hand, right Procedures: ??Upper Extremity Venous - Right Race: ?CAU ? Visit ID: ??[id number] ? ++++++++++++++++++++++++++++++++++++ SUMMARY: ++++++++++++++++++++++++++++++++++++ Acute superficial, occlusive [...] Note Александр Johnston Sr., MD - 11/01/2023 [facility] [address] [place] [address] Upper Extremity Venous Ultrasound Report Pat.Name: JOSÉ MIGUEL KEYS Pat.ID: [id number] .Date: 10/27/2023 Refer.MD: Dipak Padilla Exam Time: 9:08:00 AM Study Type:UE Venous Age: 4 1950,72Y Sex: MALE Sonogrphr: Elisabet Caba RVT Pat. Stat.:Inpatient Room: [facility] CPT - 4: 37296 Reason for Study: Swelling -Arm/hand, right Procedures: Upper Extremity Venous - Right Race: [facility] Visit ID: [id number] ++++++++++++++++++++++++++++++++++++ SUMMARY: ++++++++++++++++++++++++++++++++++++ Acute superficial, occlusive venous [...] MD VASCULAR LAB ORDERAB LES * (ABNORMAL) GLUCOSE - POINT OF CARE (10/27/2023 8:27 AM CDT) Glucose WB/POC 116(H) 70 - 106 mg/dL 10/27/2023 9:26 AM CDT [facility] Specimen Type Arterial 10/27/2023 9:26 AM CDT [facility] Blood BLOOD SPECIMEN / Unknown 10/27/2023 8:27 AM CDT 10/27/2023 9:26 AM CDT Dipak Padilla MD LAB - POINT OF CARE ORDERABLES [facility] [address] [place] [address] * (ABNORMAL) DIFFERENTIAL MANUAL (10/27/2023 7:37 AM CDT) Neutrophil % 86(H) 41 - 74 % 10/27/2023 8:29 AM CDT [facility] Lymphocyte % 4(L) 17 - 47 % 10/27/2023 8:29 AM CDT [facility] Monocyte % 8 3 - 11 % 10/27/2023 8:29 AM CDT [facility] Eosinophil % 1 0 - 7 % 10/27/2023 8:29 AM CDT [facility] Basophil % 1 0 - 2 % 10/27/2023 8:29 AM CDT [facility] Neutrophil Absolute 12.47(H) 1.60 - 7.50 x10E9/L 10/27/2023 8:29 AM CDT [facility] Lymphocyte Absolute 0.58(L) 1.00 - 4.40 x10E9/L 10/27/2023 8:29 AM CDT [facility] Monocyte Absolute 1.16(H) 0.15 - 1.00 x10E9/L 10/27/2023 8:29 AM CDT [facility] Eosinophil Absolute 0.15 0.00 - 0.60 x10E9/L 10/27/2023 8:29 AM CDT [facility] Basophil Absolute 0.15(H) 0.00 - 0.13 x10E9/L 10/27/2023 8:29 AM CDT [facility] RBC Morphology REVIEWED 10/27/2023 8:29 AM CDT [facility] Macrocytosis MODERATE(A) (none) 10/27/2023 8:29 AM CDT [facility] Polychromatic Cells MODERATE(A) (none) 10/27/2023 8:29 AM CDT [facility] Blood BLOOD SPECIMEN / Unknown Venipuncture / Unknown 10/27/2023 7:37 AM CDT 10/27/2023 7:37 AM CDT Tamara Bauman MD LAB - HEMATOLOGY ORD ERABLES [facility] [address] [place] [address] * (ABNORMAL) CBC W AUTO DIFFERENTIAL (10/27/2023 7:37 AM CDT) WBC 14.5(H) 4.0 - 10.7 x10E9/L 10/27/2023 8:30 AM CDT [facility] RBC Count 3.21(L) 4.30 - 5.80 x10E12/L 10/27/2023 8:30 AM CDT [facility] Hemoglobin 10.2(L) 13.3 - 17.5 g/dL 10/27/2023 8:30 AM CDT [facility] Hematocrit 32.2(L) 38.7 - 51.1 % 10/27/2023 8:30 AM CDT [facility] MCV 100.3(H) 80.0 - 98.0 fL 10/27/2023 8:30 AM CDT [facility] MCH 31.8 26.7 - 33.6 pg 10/27/2023 8:30 AM CDT [facility] MCHC 31.7 31.7 - 36.3 g/dL 10/27/2023 8:30 AM CDT [facility] RDW-CV 18.3(H) 11.3 - 14.8 % 10/27/2023 8:30 AM CDT [facility] Platelet Count 196 150 - 420 x10E9/L 10/27/2023 8:30 AM CDT [facility] MPV 13.8(H) 7.8 - 11.4 fL 10/27/2023 8:30 AM CDT [facility] Blood BLOOD SPECIMEN / Unknown Venipuncture / Unknown 10/27/2023 7:37 AM CDT 10/27/2023 7:37 AM CDT Tamara Bauman MD LAB - HEMATOLOGY ORD ERABLES Performing Organization Address City/[facility]/ZIP Co de Phone Number [facility] [address] [place] [address] * MAGNESIUM BLOOD (10/27/2023 7:37 AM CDT) Magnesium 1.9 1.6 - 2.6 mg/dL 10/27/2023 7:59 AM CDT [facility] Blood BLOOD SPECIMEN / Unknown Venipuncture / Unknown 10/27/2023 7:37 AM CDT 10/27/2023 7:37 AM CDT Tamara Bauman MD LAB - CHEMISTRY ORDE RABANGELIA Performing Organization Address City/[facility]/ZIP Co de Phone Number [facility] [address] [place] [address] * (ABNORMAL) GLUCOSE - POINT OF CARE (10/26/2023 10:08 PM CDT) Glucose WB/POC 130(H) 70 - 106 mg/dL 10/27/2023 9:26 AM CDT [facility] Specimen Type Cap Fingerstick 2023 9:26 AM CDT [facility] Blood BLOOD SPECIMEN / Unknown 10/26/2023 10:08 PM CDT 10/27/2023 9:26 AM CDT Dipak Padilla MD LAB - POINT OF CARE ORDERABLES Performing Organization Address [facility]/ZIP Co de Phone Number [facility] [address] [place] [address] * (ABNORMAL) GLUCOSE - POINT OF CARE (10/26/2023 8:37 PM CDT) Glucose WB/POC 145(H) 70 - 106 mg/dL 10/26/2023 9:14 PM CDT [facility] Specimen Type Cap Fingerstick 2023 9:14 PM CDT [facility] Blood BLOOD SPECIMEN / Unknown 10/26/2023 8:37 PM CDT 10/26/2023 9:14 PM CDT Dipak Padilla MD LAB - POINT OF CARE ORDERABLES Performing Organization Address [facility] Co de Phone Number [facility] [address] [place] [address] * (ABNORMAL) GLUCOSE - POINT OF CARE (10/26/2023 5:12 PM CDT) Glucose WB/POC 133(H) 70 - 106 mg/dL 10/26/2023 5:19 PM CDT [facility] Specimen Type Cap Fingerstick 2023 5:19 PM CDT [facility] Blood BLOOD SPECIMEN / Unknown 10/26/2023 5:12 PM CDT 10/26/2023 5:18 PM CDT Dipak Padilla MD LAB - POINT OF CARE ORDERABLES Performing Organization Address [facility] Co de Phone Number [facility] [address] [place] [address] * XR ELBOW RIGHT 2VW (10/26/2023 3:21 [...] MD DIAGNOSTIC IMAGING O RDERABLES * (ABNORMAL) GLUCOSE - POINT OF CARE (10/26/2023 12:23 PM CDT) Glucose WB/POC 160(H) 70 - 106 mg/dL 10/26/2023 12:33 PM CDT [facility] Specimen Type Cap Fingerstick 2023 12:33 PM CDT [facility] Blood BLOOD SPECIMEN / Unknown 10/26/2023 12:23 PM CDT 10/26/2023 12:32 PM CDT Dipak Padilla MD LAB - POINT OF CARE ORDERABLES [facility] [address] [place] [address] * (ABNORMAL) GLUCOSE - POINT OF CARE (10/26/2023 8:00 AM CDT) Glucose WB/POC 117(H) 70 - 106 mg/dL 10/26/2023 8:09 AM CDT [facility] Specimen Type Cap Fingerstick 2023 8:09 AM CDT [facility] Blood BLOOD SPECIMEN / Unknown 10/26/2023 8:00 AM CDT 10/26/2023 8:09 AM CDT Dipak Padilla MD LAB - POINT OF CARE ORDERABLES [facility] [address] [place] [address] * (ABNORMAL) DIFFERENTIAL MANUAL (10/26/2023 6:39 AM CDT) Pathologist [facility] Neutrophil % 82(H) 41 - 74 % [facility] Lymphocyte % 4(L) 17 - 47 % 10/26/2023 8:47 AM [facility] Monocyte % 8 3 - 11 % 10/26/2023 8:47 AM [facility] Eosinophil % 2 0 - 7 % 10/26/2023 8:47 AM [facility] Metamyelocyte % 2(H) 0% % 8:47 AM [facility] Myelocyte % 2(H) 0% % 10/26/2023 8:47 AM [facility] Neutrophil Absolute 14.51(H) 1.60 - 7.50 x10E9/L 10/26/2023 8:47 AM [facility] Lymphocyte Absolute 0.71(L) 1.00 - 4.40 x10E9/L 10/26/2023 8:47 AM [facility] Monocyte Absolute 1.42(H) 0.15 - 1.00 x10E9/L 10/26/2023 8:47 AM [facility] Eosinophil Absolute 0.35 0.00 - 0.60 x10E9/L 10/26/2023 8:47 AM [facility] RBC Morphology NORMAL 10/26/2023 8:47 AM CDT [facility] Blood BLOOD SPECIMEN / Unknown Lab Venipuncture / Unknown 10/26/2023 6:39 AM CDT 10/26/2023 6:44 AM CDT Tamara Bauman MD LAB - HEMATOLOGY ORD ERABLES [facility] [address] [place] [address] * (ABNORMAL) CBC W AUTO DIFFERENTIAL (10/26/2023 6:39 AM CDT) WBC 17.7(H) 4.0 - 10.7 x10E9/L 10/26/2023 8:47 AM CDT [facility] RBC Count 3.39(L) 4.30 - 5.80 x10E12/L 10/26/2023 8:47 AM [facility] Hemoglobin 10.8(L) 13.3 - 17.5 g/dL 10/26/2023 8:47 AM T [facility] Hematocrit 33.3(L) 38.7 - 51.1 % 10/26/2023 8:47 AM [facility] MCV 98.2(H) 80.0 - 98.0 fL 10/26/2023 8:47 AM [facility] MCH 31.9 26.7 - 33.6 pg 10/26/2023 8:47 AM CDT [facility] MCHC 32.4 31.7 - 36.3 g/dL 10/26/2023 8:47 AM [facility] RDW-CV 17.9(H) 11.3 - 14.8 % 10/26/2023 8:47 AM [facility] Platelet Count 195 150 - 420 x10E9/L 10/26/2023 8:47 AM [facility] MPV 14.0(H) 7.8 - 11.4 fL 10/26/2023 8:47 AM [facility] Blood BLOOD SPECIMEN / Unknown Lab Venipuncture / Unknown 10/26/2023 6:39 AM CDT 10/26/2023 6:44 AM CDT Tamara Bauman MD LAB - HEMATOLOGY ORD ERABLES Performing Organization Address City/[facility]/ZIP Co de Phone Number [facility] [address] [place] [address] * MAGNESIUM BLOOD (10/26/2023 3:59 AM CDT) Magnesium 1.8 1.6 - 2.6 mg/dL 10/26/2023 4:51 AM CDT [facility] Blood BLOOD SPECIMEN / Unknown Lab Venipuncture / Unknown 10/26/2023 3:59 AM CDT 10/26/2023 4:26 AM CDT Tamara Bauman MD LAB - CHEMISTRY ORDE RABANGELIA Performing Organization Address [facility]/ZIP Co de Phone Number [facility] [address] [place] [address] * (ABNORMAL) RENAL FUNCTION PANEL (10/26/2023 3:59 AM CDT) Glucose 103 70 - 105 mg/dL 10/26/2023 4:51 AM [facility] Sodium 144 136 - 145 mmol/L 10/26/2023 4:51 AM [facility] Potassium 4.1 3.5 - 5.1 mmol/L 10/26/2023 4:51 AM [facility] Chloride 113(H) 98 - 107 mmol/L 10/26/2023 4:51 AM [facility] CO2 19(L) 22 - 29 mmol/L 10/26/2023 4:51 AM [facility] Calcium 9.3 8.4 - 10.4 mg/dL 10/26/2023 4:51 AM [facility] Anion Gap 12 6 - 16 mmol/L 10/26/2023 4:51 AM [facility] BUN 17 7 - 26 mg/dL 10/26/2023 4:51 AM [facility] Creatinine 1.08 0.72 - 1.25 mg/dL 10/26/2023 4:51 AM [facility] Albumin 2.4(L) 3.4 - 5.0 gm/dL 10/26/2023 4:51 AM CDT [facility] Phosphorus 2.6 2.3 - 4.7 mg/dL 10/26/2023 4:51 AM CDT [facility] eGFR by CKD-EPI 72(L) >=90 mL/min/1.7 3 m2 10/26/2023 4:51 AM CDT [facility] Blood BLOOD SPECIMEN / Unknown Lab Venipuncture / Unknown 10/26/2023 3:59 AM CDT 10/26/2023 4:26 AM CDT Dipak Padilla MD LAB - CHEMISTRY ORDE RAISA [facility] [address] [place] [address] * (ABNORMAL) GLUCOSE - POINT OF CARE (10/25/2023 8:10 PM CDT) Glucose WB/POC 146(H) 70 - 106 mg/dL 10/25/2023 8:19 PM CDT [facility] Specimen Type Cap Fingerstick 2023 8:19 PM CDT [facility] Blood BLOOD SPECIMEN / Unknown 10/25/2023 8:10 PM CDT 10/25/2023 8:19 PM CDT Dipak Padilla MD LAB - POINT OF CARE ORDERABLES [facility] [address] [place] [address] * (ABNORMAL) GLUCOSE - POINT OF CARE (10/25/2023 5:41 PM CDT) Glucose WB/POC 143(H) 70 - 106 mg/dL 10/25/2023 5:54 PM CDT [facility] Specimen Type Cap Fingerstick 2023 5:54 PM CDT [facility] Blood BLOOD SPECIMEN / Unknown 10/25/2023 5:41 PM CDT 10/25/2023 5:54 PM CDT Dipak Padilla MD LAB - POINT OF CARE ORDERABLES Performing Organization Address [facility]/ZIP Co de Phone Number [facility] [address] [place] [address] * (ABNORMAL) GLUCOSE - POINT OF CARE (10/25/2023 11:37 AM CDT) Glucose WB/POC 141(H) 70 - 106 mg/dL 10/25/2023 12:03 PM CDT [facility] Specimen Type Cap Fingerstick 2023 12:03 PM CDT [facility] Blood BLOOD SPECIMEN / Unknown 10/25/2023 11:37 AM CDT 10/25/2023 12:03 PM CDT Dipak Padilla MD LAB - POINT OF CARE ORDERABLES Performing Organization Address [facility] Co de Phone Number [facility] [address] [place] [address] * GLUCOSE - POINT OF CARE (10/25/2023 8:04 AM CDT) Glucose WB/POC 97 70 - 106 mg/dL 10/25/2023 8:52 AM CDT [facility] Specimen Type Cap Fingerstick 2023 8:52 AM CDT [facility] Blood BLOOD SPECIMEN / Unknown 10/25/2023 8:04 AM CDT 10/25/2023 8:52 AM CDT Dipak Padilla MD LAB - POINT OF CARE ORDERABLES Performing Organization Address City/[facility]/ZIP Co de Phone Number [facility] [address] [place] [address] * (ABNORMAL) CBC W AUTO DIFFERENTIAL (10/25/2023 4:11 AM CDT) WBC 14.5(H) 4.0 - 10.7 x10E9/L 10/25/2023 5:07 AM CDT [facility] RBC Count 3.72(L) 4.30 - 5.80 x10E12/L 10/25/2023 5:07 AM [facility] Hemoglobin 11.7(L) 13.3 - 17.5 g/dL 10/25/2023 5:07 AM [facility] Hematocrit 38.2(L) 38.7 - 51.1 % 10/25/2023 5:07 AM [facility] MCV 102.7(H) 80.0 - 98.0 fL 10/25/2023 5:07 AM [facility] MCH 31.5 26.7 - 33.6 pg 10/25/2023 5:07 AM [facility] MCHC 30.6(L) 31.7 - 36.3 g/dL 10/25/2023 5:07 AM [facility] RDW-CV 18.0(H) 11.3 - 14.8 % 10/25/2023 5:07 AM [facility] Platelet Count 175 150 - 420 x10E9/L 10/25/2023 5:07 AM [facility] MPV 13.9(H) 7.8 - 11.4 fL 10/25/2023 5:07 AM [facility] Neutrophil % 77.5(H) 41.0 - 74.0 % 10/25/2023 5:07 AM [facility] Lymphocyte % 7.9(L) 17.0 - 47.0 % 10/25/2023 5:07 AM [facility] Monocyte % 9.0 3.0 - 11.0 % 10/25/2023 5:07 AM [facility] Eosinophil % 3.1 0.0 - 7.0 % 10/25/2023 5:07 AM [facility] Basophil % 0.5 0.0 - 1.6 % 10/25/2023 5:07 AM [facility] Immature Granulocytes % 2.0(H) 0.0 - 1.0 % 10/25/2023 5:07 AM [facility] Neutrophil Absolute 11.23(H) 1.60 - 7.50 x10E9/L 10/25/2023 5:07 AM [facility] Lymphocyte Absolute 1.15 1.00 - 4.40 x10E9/L 10/25/2023 5:07 AM CDT [facility] Monocyte Absolute 1.30(H) 0.15 - 1.00 x10E9/L 10/25/2023 5:07 AM CDT [facility] Eosinophil Absolute 0.45 0.00 - 0.60 x10E9/L 10/25/2023 5:07 AM CDT [facility] Basophil Absolute 0.07 0.00 - 0.13 x10E9/L 10/25/2023 5:07 AM CDT [facility] Blood BLOOD SPECIMEN / Unknown Lab Venipuncture / Unknown 10/25/2023 4:11 AM CDT 10/25/2023 4:35 AM CDT Tamara Bauman MD LAB - HEMATOLOGY ORD ERABLES Performing Organization Address City/[facility]/ZIP Co de Phone Number [facility] [address] [place] [address] * MAGNESIUM BLOOD (10/25/2023 4:11 AM CDT) Magnesium 1.7 1.6 - 2.6 mg/dL 10/25/2023 4:54 AM CDT [facility] Blood BLOOD SPECIMEN / Unknown Lab Venipuncture / Unknown 10/25/2023 4:11 AM CDT 10/25/2023 4:34 AM CDT Tamara Bauman MD LAB - CHEMISTRY ORDMarj KLINE Performing Organization Address City/[facility]/ZIP Co de Phone Number [facility] [address] [place] [address] * (ABNORMAL) RENAL FUNCTION PANEL (10/25/2023 4:11 AM CDT) Glucose 109(H) 70 - 105 mg/dL 10/25/2023 4:54 AM CDT [facility] Sodium 146(H) 136 - 145 mmol/L 10/25/2023 4:54 AM CDT [facility] Potassium 3.9 3.5 - 5.1 mmol/L 10/25/2023 4:54 AM CDT [facility] Chloride 115(H) 98 - 107 mmol/L 10/25/2023 4:54 AM CDT [facility] CO2 23 22 - 29 mmol/L 10/25/2023 4:54 AM CDT [facility] Calcium 8.9 8.4 - 10.4 mg/dL 10/25/2023 4:54 AM [facility] Anion Gap 8 6 - 16 mmol/L 10/25/2023 4:54 AM T [facility] BUN 19 7 - 26 mg/dL 10/25/2023 4:54 AM T [facility] Creatinine 1.27(H) 0.72 - 1.25 mg/dL 10/25/2023 4:54 AM [facility] Albumin 2.5(L) 3.4 - 5.0 gm/dL 10/25/2023 4:54 AM [facility] Phosphorus 2.5 2.3 - 4.7 mg/dL 10/25/2023 4:54 AM [facility] eGFR by CKD-EPI 59(L) >=90 mL/min/1.7 3 m2 10/25/2023 4:54 AM T [facility] Blood BLOOD SPECIMEN / Unknown Lab Venipuncture / Unknown 10/25/2023 4:11 AM CDT 10/25/2023 4:34 AM CDT Tamara Bauman MD LAB - CHEMISTRY ROYCE KLINE Performing Organization Address City/[facility] Co wy Phone Number [facility] [address] [place] [address] * (ABNORMAL) GLUCOSE - POINT OF CARE (10/24/2023 7:51 PM CDT) [facility] Glucose WB/POC 129(H) 70 - 106 mg/dL 10/24/2023 8:00 PM CDT [facility] Specimen Type Cap Fingerstick 2023 8:00 PM CDT [facility] Blood BLOOD SPECIMEN / Unknown 10/24/2023 7:51 PM CDT 10/24/2023 8:00 PM CDT Jayme Rodriguez MD LAB - POINT OF CARE ORDERABLES [facility] [address] [place] [address] * (ABNORMAL) GLUCOSE - POINT OF CARE (10/24/2023 5:47 PM CDT) Glucose WB/POC 120(H) 70 - 106 mg/dL 10/24/2023 5:57 PM CDT [facility] Specimen Type Cap Fingerstick 2023 5:57 PM CDT [facility] Blood BLOOD SPECIMEN / Unknown 10/24/2023 5:47 PM CDT 10/24/2023 5:57 PM CDT Jayme Rodriguez MD LAB - POINT OF CARE ORDERABLES Performing Organization Address [facility] Co de Phone Number [facility] [address] [place] [address] * (ABNORMAL) GLUCOSE - POINT OF CARE (10/24/2023 12:32 PM CDT) Glucose WB/POC 112(H) 70 - 106 mg/dL 10/24/2023 12:42 PM CDT [facility] Specimen Type Cap Fingerstick 2023 12:42 PM CDT [facility] Blood BLOOD SPECIMEN / Unknown 10/24/2023 12:32 PM CDT 10/24/2023 12:42 PM CDT Jayme Rodriguez MD LAB - POINT OF CARE ORDERABLES Performing Organization Address City/[facility]/ZIP Co de Phone Number [facility] [address] [place] [address] * (ABNORMAL) GLUCOSE - POINT OF CARE (10/24/2023 10:19 AM CDT) Glucose WB/POC 127(H) 70 - 106 mg/dL 10/24/2023 10:24 AM CDT [facility] Specimen Type Cap Fingerstick 2023 10:24 AM CDT [facility] Blood BLOOD SPECIMEN / Unknown 10/24/2023 10:19 AM CDT 10/24/2023 10:24 AM CDT Jayme Rodriguez MD LAB - POINT OF CARE ORDERABLES [facility] [address] [place] [address] * XR CHEST 1VW (10/24/2023 5:17 AM CDT) Anatomical Region Laterality Modality Chest Radiographic Shama [...] Alvino Goddard MD DIAGNOSTIC IMAGING ORDERABLES * (ABNORMAL) CBC W AUTO DIFFERENTIAL (10/24/2023 5:17 AM CDT) WBC 14.4(H) 4.0 - 10.7 x10E9/L 10/24/2023 6:23 AM CDT [facility] RBC Count 3.67(L) 4.30 - 5.80 x10E12/L 10/24/2023 6:23 AM CDT [facility] Hemoglobin 11.6(L) 13.3 - 17.5 g/dL 10/24/2023 6:23 AM CDT [facility] Hematocrit 36.2(L) 38.7 - 51.1 % 10/24/2023 6:23 AM CDT [facility] MCV 98.6(H) 80.0 - 98.0 fL 10/24/2023 6:23 AM CDT [facility] MCH 31.6 26.7 - 33.6 pg 10/24/2023 6:23 AM CDT [facility] MCHC 32.0 31.7 - 36.3 g/dL 10/24/2023 6:23 AM CDT [facility] RDW-CV 17.6(H) 11.3 - 14.8 % 10/24/2023 6:23 AM [facility] Platelet Count 171 150 - 420 x10E9/L 10/24/2023 6:23 AM [facility] MPV 13.5(H) 7.8 - 11.4 fL 10/24/2023 6:23 AM [facility] Neutrophil % 75.6(H) 41.0 - 74.0 % 10/24/2023 6:23 AM [facility] Lymphocyte % 8.3(L) 17.0 - 47.0 % 10/24/2023 6:23 AM [facility] Monocyte % 8.9 3.0 - 11.0 % 10/24/2023 6:23 AM [facility] Eosinophil % 3.5 0.0 - 7.0 % 10/24/2023 6:23 AM [facility] Basophil % 0.6 0.0 - 1.6 % 10/24/2023 6:23 AM [facility] Immature Granulocytes % 3.1(H) 0.0 - 1.0 % 10/24/2023 6:23 AM [facility] Neutrophil Absolute 10.88(H) 1.60 - 7.50 x10E9/L 10/24/2023 6:23 AM [facility] Lymphocyte Absolute 1.20 1.00 - 4.40 x10E9/L 10/24/2023 6:23 AM [facility] Monocyte Absolute 1.28(H) 0.15 - 1.00 x10E9/L 10/24/2023 6:23 AM [facility] Eosinophil Absolute 0.51 0.00 - 0.60 x10E9/L 10/24/2023 6:23 AM [facility] Basophil Absolute 0.08 0.00 - 0.13 x10E9/L 10/24/2023 6:23 AM [facility] Blood BLOOD SPECIMEN / Unknown Lab Venipuncture / Unknown 10/24/2023 5:17 AM CDT 10/24/2023 6:09 AM T Tamara Bauman MD LAB - HEMATOLOGY ORD ERABLES Performing Organization Address City/[facility]/ZIP Co de Phone Number [facility] [address] [place] [address] * MAGNESIUM BLOOD (10/24/2023 5:17 AM CDT) [facility] Magnesium 1.8 1.6 - 2.6 mg/dL 10/24/2023 6:33 AM T [facility] Blood BLOOD SPECIMEN / Unknown Lab Venipuncture / Unknown 10/24/2023 5:17 AM CDT 10/24/2023 6:10 AM CDT Tamara Bauman MD LAB - CHEMISTRY ROYCE KLINE Performing Organization Address [facility]/ZIP Co de Phone Number [facility] [address] [place] [address] * (ABNORMAL) RENAL FUNCTION PANEL (10/24/2023 5:17 AM CDT) [facility] Glucose 101 70 - 105 mg/dL 10/24/2023 6:33 AM [facility] Sodium 144 136 - 145 mmol/L 10/24/2023 6:33 AM [facility] Potassium 3.6 3.5 - 5.1 mmol/L 10/24/2023 6:33 AM [facility] Chloride 115(H) 98 - 107 mmol/L 10/24/2023 6:33 AM [facility] CO2 21(L) 22 - 29 mmol/L 10/24/2023 6:33 AM [facility] Calcium 8.8 8.4 - 10.4 mg/dL 10/24/2023 6:33 AM [facility] Anion Gap 8 6 - 16 mmol/L 10/24/2023 6:33 AM [facility] BUN 22 7 - 26 mg/dL 10/24/2023 6:33 AM [facility] Creatinine 1.29(H) 0.72 - 1.25 mg/dL 10/24/2023 6:33 AM [facility] Albumin 2.4(L) 3.4 - 5.0 gm/dL 10/24/2023 6:33 AM CDT [facility] Phosphorus 2.4 2.3 - 4.7 mg/dL 10/24/2023 6:33 AM CDT [facility] eGFR by CKD-EPI 58(L) >=90 mL/min/1.7 3 m2 10/24/2023 6:33 AM CDT [facility] Blood BLOOD SPECIMEN / Unknown Lab Venipuncture / Unknown 10/24/2023 5:17 AM CDT 10/24/2023 6:10 AM CDT Tamara Bauman MD LAB - CHEMISTRY ROYCE KLINE [facility] [address] [place] [address] * (ABNORMAL) GLUCOSE - POINT OF CARE (10/23/2023 9:00 PM CDT) Glucose WB/POC 122(H) 70 - 106 mg/dL 10/23/2023 9:24 PM CDT [facility] Specimen Type Cap Fingerstick 2023 9:24 PM CDT [facility] Blood BLOOD SPECIMEN / Unknown 10/23/2023 9:00 PM CDT 10/23/2023 9:24 PM CDT Jayme Rodriguez MD LAB - POINT OF CARE ORDERABLES [facility] [address] [place] [address] * (ABNORMAL) GLUCOSE - POINT OF CARE (10/23/2023 5:12 PM CDT) Glucose WB/POC 158(H) 70 - 106 mg/dL 10/24/2023 9:29 AM CDT [facility] Specimen Type Arterial 10/24/2023 9:29 AM CDT [facility] Blood BLOOD SPECIMEN / Unknown 10/23/2023 5:12 PM CDT 10/24/2023 9:29 AM CDT Jayme Rodriguez MD LAB - POINT OF CARE ORDERABLES Performing Organization Address [facility] Co de Phone Number [facility] [address] [place] [address] * GLUCOSE - POINT OF CARE (10/23/2023 12:04 PM CDT) Glucose WB/POC 100 70 - 106 mg/dL 10/23/2023 12:13 PM CDT [facility] Specimen Type Arterial 10/23/2023 12:13 PM CDT [facility] Blood BLOOD SPECIMEN / Unknown 10/23/2023 12:04 PM CDT 10/23/2023 12:13 PM CDT Jayme Rodriguez MD LAB - POINT OF CARE ORDERABLES Performing Organization Address [facility] Co de Phone Number [facility] [address] [place] [address] * GLUCOSE - POINT OF CARE (10/23/2023 8:17 AM CDT) Pathologist [facility] Glucose WB/POC 89 70 - 106 mg/dL 10/23/2023 8:27 AM CDT [facility] Specimen Type Arterial 10/23/2023 8:27 AM CDT [facility] Blood BLOOD SPECIMEN / Unknown 10/23/2023 8:17 AM CDT 10/23/2023 8:27 AM CDT Jayme Rodriguez MD LAB - POINT OF CARE ORDERABLES Performing Organization Address [facility] Co de Phone Number [facility] [address] [place] [address] * (ABNORMAL) CBC W AUTO DIFFERENTIAL (10/23/2023 4:37 AM CDT) WBC 15.2(H) 4.0 - 10.7 x10E9/L 10/23/2023 5:03 AM CDT [facility] RBC Count 3.76(L) 4.30 - 5.80 x10E12/L 10/23/2023 5:03 AM CDT [facility] Hemoglobin 11.6(L) 13.3 - 17.5 g/dL 10/23/2023 5:03 AM [facility] Hematocrit 37.0(L) 38.7 - 51.1 % 10/23/2023 5:03 AM [facility] MCV 98.4(H) 80.0 - 98.0 fL 10/23/2023 5:03 AM [facility] MCH 30.9 26.7 - 33.6 pg 10/23/2023 5:03 AM [facility] MCHC 31.4(L) 31.7 - 36.3 g/dL 10/23/2023 5:03 AM [facility] RDW-CV 17.1(H) 11.3 - 14.8 % 10/23/2023 5:03 AM [facility] Platelet Count 167 150 - 420 x10E9/L 10/23/2023 5:03 AM [facility] MPV 12.9(H) 7.8 - 11.4 fL 10/23/2023 5:03 AM [facility] Neutrophil % 75.4(H) 41.0 - 74.0 % 10/23/2023 5:03 AM [facility] Lymphocyte % 8.5(L) 17.0 - 47.0 % 10/23/2023 5:03 AM [facility] Monocyte % 7.3 3.0 - 11.0 % 10/23/2023 5:03 AM [facility] Eosinophil % 3.8 0.0 - 7.0 % 10/23/2023 5:03 AM [facility] Basophil % 0.6 0.0 - 1.6 % 10/23/2023 5:03 AM [facility] Immature Granulocytes % 4.4(H) 0.0 - 1.0 % 10/23/2023 5:03 AM [facility] Neutrophil Absolute 11.48(H) 1.60 - 7.50 x10E9/L 10/23/2023 5:03 AM [facility] Lymphocyte Absolute 1.30 1.00 - 4.40 x10E9/L 10/23/2023 5:03 AM [facility] Monocyte Absolute 1.12(H) 0.15 - 1.00 x10E9/L 10/23/2023 5:03 AM CDT [facility] Eosinophil Absolute 0.58 0.00 - 0.60 x10E9/L 10/23/2023 5:03 AM CDT [facility] Basophil Absolute 0.09 0.00 - 0.13 x10E9/L 10/23/2023 5:03 AM CDT [facility] Blood BLOOD SPECIMEN / Unknown Lab Venipuncture / Unknown 10/23/2023 4:37 AM CDT 10/23/2023 4:56 AM CDT Tamara Bauman MD LAB - HEMATOLOGY ORD ERABLES [facility] [address] [place] [address] * MAGNESIUM BLOOD (10/23/2023 4:37 AM CDT) Magnesium 1.8 1.6 - 2.6 mg/dL 10/23/2023 5:18 AM T [facility] Blood BLOOD SPECIMEN / Unknown Lab Venipuncture / Unknown 10/23/2023 4:37 AM CDT 10/23/2023 4:55 AM CDT Tamara Bauman MD LAB - CHEMISTRY ORDE RABANGELIA [facility] [address] [place] [address] * (ABNORMAL) RENAL FUNCTION PANEL (10/23/2023 4:37 AM CDT) Glucose 104 70 - 105 mg/dL 10/23/2023 5:18 AM CDT [facility] Sodium 142 136 - 145 mmol/L 10/23/2023 5:18 AM CDT [facility] Potassium 3.6 3.5 - 5.1 mmol/L 10/23/2023 5:18 AM CDT [facility] Chloride 114(H) 98 - 107 mmol/L 10/23/2023 5:18 AM CDT [facility] CO2 22 22 - 29 mmol/L 10/23/2023 5:18 AM CDT [facility] Calcium 8.2(L) 8.4 - 10.4 mg/dL 10/23/2023 5:18 AM CDT [facility] Anion Gap 6 6 - 16 mmol/L 10/23/2023 5:18 AM CDT [facility] BUN 23 7 - 26 mg/dL 10/23/2023 5:18 AM CDT [facility] Creatinine 1.19 0.72 - 1.25 mg/dL 10/23/2023 5:18 AM T [facility] Albumin 2.3(L) 3.4 - 5.0 gm/dL 10/23/2023 5:18 AM CDT [facility] Phosphorus 2.8 2.3 - 4.7 mg/dL 10/23/2023 5:18 AM [facility] eGFR by CKD-EPI 64(L) >=90 mL/min/1.7 3 m2 10/23/2023 5:18 AM CDT [facility] Blood BLOOD SPECIMEN / Unknown Lab Venipuncture / Unknown 10/23/2023 4:37 AM CDT 10/23/2023 4:55 AM CDT Tamara Bauman MD LAB - CHEMISTRY ORDE RAISA [facility] [address] [place] [address] * (ABNORMAL) GLUCOSE - POINT OF CARE (10/22/2023 8:10 PM CDT) [facility] Glucose WB/POC 143(H) 70 - 106 mg/dL 10/22/2023 8:16 PM CDT [facility] Specimen Type Cap Fingerstick 2023 8:16 PM CDT [facility] Blood BLOOD SPECIMEN / Unknown 10/22/2023 8:10 PM CDT 10/22/2023 8:15 PM CDT Jayme Rordiguez MD LAB - POINT OF CARE ORDERABLES [facility] [address] [place] [address] * XR ABDOMEN KUB (10/22/2023 5:19 PM CDT) Anatomical Region Laterality Modality Abdomen Radiographic Shama [...] Rios MD DIAGNOSTIC IMAGING O RDERABLES * (ABNORMAL) GLUCOSE - POINT OF CARE (10/22/2023 5:17 PM CDT) Glucose WB/POC 108(H) 70 - 106 mg/dL 10/22/2023 5:30 PM CDT [facility] Specimen Type Arterial 10/22/2023 5:30 PM CDT [facility] Blood BLOOD SPECIMEN / Unknown 10/22/2023 5:17 PM CDT 10/22/2023 5:30 PM CDT Jayme Rodriguez MD LAB - POINT OF CARE ORDERABLES [facility] [address] [place] [address] * (ABNORMAL) BASIC METABOLIC PANEL (CALCIUM TOTAL) (10/22/2023 3:32 PM CDT) Glucose 147(H) 70 - 105 mg/dL 10/22/2023 4:03 PM [facility] Sodium 141 136 - 145 mmol/L 10/22/2023 4:03 PM [facility] Potassium 3.4(L) 3.5 - 5.1 mmol/L 10/22/2023 4:03 PM [facility] Chloride 113(H) 98 - 107 mmol/L 10/22/2023 4:03 PM [facility] CO2 21(L) 22 - 29 mmol/L 10/22/2023 4:03 PM [facility] Calcium 8.3(L) 8.4 - 10.4 mg/dL 10/22/2023 4:03 PM [facility] Anion Gap 7 6 - 16 mmol/L 10/22/2023 4:03 PM [facility] BUN 26 7 - 26 mg/dL 10/22/2023 4:03 PM [facility] Creatinine 1.26(H) 0.72 - 1.25 mg/dL 10/22/2023 4:03 PM [facility] eGFR by CKD-EPI 60(L) >=90 mL/min/1.7 3 m2 10/22/2023 4:03 PM [facility] Blood BLOOD SPECIMEN / Unknown Lab Venipuncture / Unknown 10/22/2023 3:32 PM CDT 10/22/2023 3:47 PM CDT Celso Denson MD LAB - CHEMISTRY ROYCE KLINE Performing Organization Address [facility] Co de Phone Number [facility] [address] [place] [address] * (ABNORMAL) GLUCOSE - POINT OF CARE (10/22/2023 11:42 AM CDT) Glucose WB/POC 129(H) 70 - 106 mg/dL 10/22/2023 11:49 AM CDT [facility] Specimen Type Cap Fingerstick 2023 11:49 AM CDT [facility] Blood BLOOD SPECIMEN / Unknown 10/22/2023 11:42 AM CDT 10/22/2023 11:49 AM CDT Jayme Rodriguez MD LAB - POINT OF CARE ORDERABLES Performing Organization Address [facility] Co de Phone Number [facility] [address] [place] [address] * GLUCOSE - POINT OF CARE (10/22/2023 6:47 AM CDT) Glucose WB/POC 103 70 - 106 mg/dL 10/22/2023 8:19 AM CDT [facility] Specimen Type Cap Fingerstick 2023 8:19 AM CDT [facility] Blood BLOOD SPECIMEN / Unknown 10/22/2023 6:47 AM CDT 10/22/2023 8:19 AM CDT Jayme Rodriguez MD LAB - POINT OF CARE ORDERABLES Performing Organization Address [facility]/ZIP Co de Phone Number [facility] [address] [place] [address] * (ABNORMAL) CBC W AUTO DIFFERENTIAL (10/22/2023 3:31 AM CDT) WBC 14.9(H) 4.0 - 10.7 x10E9/L 10/22/2023 3:43 AM [facility] RBC Count 3.75(L) 4.30 - 5.80 x10E12/L 10/22/2023 3:43 AM [facility] Hemoglobin 11.6(L) 13.3 - 17.5 g/dL 10/22/2023 3:43 AM [facility] Hematocrit 36.8(L) 38.7 - 51.1 % 10/22/2023 3:43 AM [facility] MCV 98.1(H) 80.0 - 98.0 fL 10/22/2023 3:43 AM [facility] MCH 30.9 26.7 - 33.6 pg 10/22/2023 3:43 AM [facility] MCHC 31.5(L) 31.7 - 36.3 g/dL 10/22/2023 3:43 AM [facility] RDW-CV 16.8(H) 11.3 - 14.8 % 10/22/2023 3:43 AM [facility] Platelet Count 164 150 - 420 x10E9/L 10/22/2023 3:43 AM [facility] MPV 12.9(H) 7.8 - 11.4 fL 10/22/2023 3:43 AM [facility] Neutrophil % 74.6(H) 41.0 - 74.0 % 10/22/2023 3:43 AM [facility] Lymphocyte % 9.1(L) 17.0 - 47.0 % 10/22/2023 3:43 AM [facility] Monocyte % 6.5 3.0 - 11.0 % 10/22/2023 3:43 AM [facility] Eosinophil % 4.1 0.0 - 7.0 % 10/22/2023 3:43 AM [facility] Basophil % 0.7 0.0 - 1.6 % 10/22/2023 3:43 AM [facility] Immature Granulocytes % 5.0(H) 0.0 - 1.0 % 10/22/2023 3:43 AM [facility] Neutrophil Absolute 11.08(H) 1.60 - 7.50 x10E9/L 10/22/2023 3:43 AM CDT [facility] Lymphocyte Absolute 1.35 1.00 - 4.40 x10E9/L 10/22/2023 3:43 AM CDT [facility] Monocyte Absolute 0.97 0.15 - 1.00 x10E9/L 10/22/2023 3:43 AM CDT [facility] Eosinophil Absolute 0.61(H) 0.00 - 0.60 x10E9/L 10/22/2023 3:43 AM CDT [facility] Basophil Absolute 0.10 0.00 - 0.13 x10E9/L 10/22/2023 3:43 AM CDT [facility] NRBC 0.8(H) <=0.0 /100 WBC 10/22/2023 3:43 AM CDT [facility] Blood BLOOD SPECIMEN / Unknown Lab Venipuncture / Unknown 10/22/2023 3:31 AM CDT 10/22/2023 3:39 AM CDT Tamara Bauman MD LAB - HEMATOLOGY ORD ERABLES [facility] [address] [place] [address] * MAGNESIUM BLOOD (10/22/2023 3:31 AM CDT) Magnesium 1.9 1.6 - 2.6 mg/dL 10/22/2023 4:01 AM CDT [facility] Blood BLOOD SPECIMEN / Unknown Lab Venipuncture / Unknown 10/22/2023 3:31 AM CDT 10/22/2023 3:39 AM CDT Tamara Bauman MD LAB - CHEMISTRY ROYCE KLINE [facility] [address] [place] [address] * (ABNORMAL) RENAL FUNCTION PANEL (10/22/2023 3:31 AM CDT) Glucose 118(H) 70 - 105 mg/dL 10/22/2023 4:01 AM [facility] Sodium 144 136 - 145 mmol/L 10/22/2023 4:01 AM [facility] Potassium 3.0(L) 3.5 - 5.1 mmol/L 10/22/2023 4:01 AM [facility] Chloride 115(H) 98 - 107 mmol/L 10/22/2023 4:01 AM [facility] CO2 23 22 - 29 mmol/L 10/22/2023 4:01 AM [facility] Calcium 8.2(L) 8.4 - 10.4 mg/dL 10/22/2023 4:01 AM [facility] Anion Gap 6 6 - 16 mmol/L 10/22/2023 4:01 AM [facility] BUN 29(H) 7 - 26 mg/dL 10/22/2023 4:01 AM [facility] Creatinine 1.27(H) 0.72 - 1.25 mg/dL 10/22/2023 4:01 AM [facility] Albumin 2.4(L) 3.4 - 5.0 gm/dL 10/22/2023 4:01 AM [facility] Phosphorus 2.2(L) 2.3 - 4.7 mg/dL 10/22/2023 4:01 AM [facility] eGFR by CKD-EPI 59(L) >=90 mL/min/1.7 3 m2 10/22/2023 4:01 AM [facility] Blood BLOOD SPECIMEN / Unknown Lab Venipuncture / Unknown 10/22/2023 3:31 AM CDT 10/22/2023 3:39 AM CDT Tamara Bauman MD LAB - CHEMISTRY ROYCE KLINE [facility] Organization Address City/State/ZIP Co de Phone Number [facility] [address] [place] [address] * (ABNORMAL) GLUCOSE - POINT OF CARE (10/21/2023 8:40 PM CDT) Pathologist [facility] Glucose WB/POC 137(H) 70 - 106 mg/dL 10/24/2023 4:46 PM [facility] Specimen Type Cap Fingerstick 2023 4:46 PM CDT [facility] Blood BLOOD SPECIMEN / Unknown 10/21/2023 8:40 PM CDT 10/24/2023 4:46 PM CDT Jayme Rodriguez MD LAB - POINT OF CARE ORDERABLES Performing Organization Address City/[facility]/ZIP Co de Phone Number [facility] [address] [place] [address] * (ABNORMAL) GLUCOSE - POINT OF CARE (10/21/2023 4:54 PM CDT) Glucose WB/POC 135(H) 70 - 106 mg/dL 10/24/2023 4:46 PM CDT [facility] Specimen Type Cap Fingerstick 2023 4:46 PM CDT [facility] Blood BLOOD SPECIMEN / Unknown 10/21/2023 4:54 PM CDT 10/24/2023 4:46 PM CDT Jayme Rodriguez MD LAB - POINT OF CARE ORDERABLES Performing Organization Address [facility] Co de Phone Number [facility] [address] [place] [address] * (ABNORMAL) GLUCOSE - POINT OF CARE (10/21/2023 1:12 PM CDT) Glucose WB/POC 113(H) 70 - 106 mg/dL 10/21/2023 4:39 PM CDT [facility] Specimen Type Cap Fingerstick 2023 4:39 PM CDT [facility] Blood BLOOD SPECIMEN / Unknown 10/21/2023 1:12 PM CDT 10/21/2023 4:39 PM CDT Jayme Rodriguez MD LAB - POINT OF CARE ORDERABLES Performing Organization Address City/[facility]/ZIP Co de Phone Number [facility] [address] [place] [address] * [place] MODIFIED BARIUM SWALLOW W/SPEECH (10/21/2023 [...] Thin liquid: ? No penetration or aspiration. Emmett thickness: ? No penetration or aspiration. ?? [...] . Thin liquid: No penetration or aspiration. Emmett thickness: No penetration or aspiration. Honey thickness: No penetration or aspiration. Pudding thickness: No penetration or aspiration. Solid cookie product: No penetration or aspiration. IMPRESSION: Modified barium swallow fluoroscopy as described. Please see detailed report from speech pathology staff. > Interpreting Provider: Puneet Gerber MD on 10/21/2023 11:22 AM Jayme Rodriguez MD FLUOROSCOPY ORDERABL ES * (ABNORMAL) GLUCOSE - POINT OF CARE (10/21/2023 7:53 AM CDT) Pathologist [facility] Glucose WB/POC 118(H) 70 - 106 mg/dL 10/21/2023 8:41 AM CDT [facility] Specimen Type Cap Fingerstick 2023 8:41 AM CDT [facility] Blood BLOOD SPECIMEN / Unknown 10/21/2023 7:53 AM CDT 10/21/2023 8:41 AM CDT Jayme Rodriguez MD LAB - POINT OF CARE ORDERABLES Performing Organization Address City/[facility]/ZIP Co de Phone Number [facility] [address] [place] [address] * SLIDE SCAN HEMATOLOGY (10/21/2023 3:41 AM CDT) Pathologist [facility] RBC Morphology NORMAL 10/21/2023 6:55 AM CDT [facility] Blood BLOOD SPECIMEN / Unknown Lab Venipuncture / Unknown 10/21/2023 3:41 AM CDT 10/21/2023 3:43 AM CDT Tamara Bauman MD LAB - HEMATOLOGY ORD ERABLES [facility] [address] [place] [address] * (ABNORMAL) CBC W AUTO DIFFERENTIAL (10/21/2023 3:41 AM CDT) Pathologist [facility] WBC 14.3(H) 4.0 - 10.7 x10E9/L 10/21/2023 6:55 AM CDT [facility] RBC Count 3.90(L) 4.30 - 5.80 x10E12/L 10/21/2023 6:[facility] Hemoglobin 11.9(L) 13.3 - 17.5 g/dL 10/21/2023 6:55 [facility] Hematocrit 38.0(L) 38.7 - 51.1 % 10/21/2023 6:55 [facility] MCV 97.4 80.0 - 98.0 fL 10/21/2023 6:55 [facility] MCH 30.5 26.7 - 33.6 pg 10/21/2023 6:55 AM [facility] MCHC 31.3(L) 31.7 - 36.3 g/dL 10/21/2023 6:55 AM [facility] RDW-CV 17.2(H) 11.3 - 14.8 % 10/21/2023 6:55 AM [facility] Platelet Count 151 150 - 420 x10E9/L 10/21/2023 6:55 AM [facility] MPV 12.8(H) 7.8 - 11.4 fL 10/21/2023 6:55 AM [facility] Neutrophil % 74.9(H) 41.0 - 74.0 % 10/21/2023 6:55 AM [facility] Lymphocyte % 7.7(L) 17.0 - 47.0 % 10/21/2023 6:55 AM [facility] Monocyte % 6.6 3.0 - 11.0 % 10/21/2023 6:55 AM [facility] [facility] Eosinophil % 4.5 0.0 - 7.0 % 10/21/2023 6:55 AM [facility] Basophil % 0.9 0.0 - 1.6 % 10/21/2023 6:55 AM [facility] Immature Granulocytes % 5.4(H) 0.0 - 1.0 % 10/21/2023 6:55 AM [facility] Neutrophil Absolute 10.74(H) 1.60 - 7.50 x10E9/L 10/21/2023 6:55 AM [facility] Lymphocyte Absolute 1.10 1.00 - 4.40 x10E9/L 10/21/2023 6:55 AM CDT [facility] Monocyte Absolute 0.95 0.15 - 1.00 x10E9/L 10/21/2023 6:55 AM CDT [facility] Eosinophil Absolute 0.64(H) 0.00 - 0.60 x10E9/L 10/21/2023 6:55 AM CDT [facility] Basophil Absolute 0.13 0.00 - 0.13 x10E9/L 10/21/2023 6:55 AM CDT [facility] NRBC 2.0(H) <=0.0 /100 WBC 10/21/2023 6:55 AM CDT [facility] Blood BLOOD SPECIMEN / Unknown Lab Venipuncture / Unknown 10/21/2023 3:41 AM CDT 10/21/2023 3:43 AM CDT Tamara Bauman MD LAB - HEMATOLOGY ORD ERABLES Performing Organization Address [facility]/ZIP Co de Phone Number [facility] [address] [place] [address] * MAGNESIUM BLOOD (10/21/2023 3:41 AM CDT) Magnesium 2.1 1.6 - 2.6 mg/dL 10/21/2023 4:02 AM CDT [facility] Blood BLOOD SPECIMEN / Unknown Lab Venipuncture / Unknown 10/21/2023 3:41 AM CDT 10/21/2023 3:43 AM CDT Tamara Bauman MD LAB - CHEMISTRY ORDMarj KLINE [facility] [address] [place] [address] * (ABNORMAL) RENAL FUNCTION PANEL (10/21/2023 3:41 AM CDT) Glucose 132(H) 70 - 105 mg/dL 10/21/2023 4:02 AM CDT [facility] Sodium 148(H) 136 - 145 mmol/L 10/21/2023 4:02 AM CDT [facility] Potassium 3.1(L) 3.5 - 5.1 mmol/L 10/21/2023 4:02 AM [facility] Chloride 119(H) 98 - 107 mmol/L 10/21/2023 4:02 AM [facility] CO2 23 22 - 29 mmol/L 10/21/2023 4:02 AM [facility] Calcium 8.3(L) 8.4 - 10.4 mg/dL 10/21/2023 4:02 AM [facility] Anion Gap 6 6 - 16 mmol/L 10/21/2023 4:02 AM [facility] BUN 37(H) 7 - 26 mg/dL 10/21/2023 4:02 AM [facility] Creatinine 1.41(H) 0.72 - 1.25 mg/dL 10/21/2023 4:02 AM [facility] Albumin 2.4(L) 3.4 - 5.0 gm/dL 10/21/2023 4:02 AM [facility] Phosphorus 2.4 2.3 - 4.7 mg/dL 10/21/2023 4:02 AM [facility] eGFR by CKD-EPI 52(L) >=90 mL/min/1.7 3 m2 10/21/2023 4:02 AM [facility] Blood BLOOD SPECIMEN / Unknown Lab Venipuncture / Unknown 10/21/2023 3:41 AM CDT 10/21/2023 3:43 AM CDT Tamara Bauman MD LAB - CHEMISTRY ROYCE KLINE [facility] Organization Address City/State/ZIP Co de Phone Number [facility] [address] [place] [address] * (ABNORMAL) GLUCOSE - POINT OF CARE (10/20/2023 9:43 PM CDT) [facility] Glucose WB/POC 126(H) 70 - 106 mg/dL 10/21/2023 1:13 AM T [facility] Specimen Type Cap Fingerstick 2023 1:13 AM [facility] Blood BLOOD SPECIMEN / Unknown 10/20/2023 9:43 PM CDT 10/21/2023 1:13 AM CDT Jayme Rodriguez MD LAB - POINT OF CARE ORDERABLES Performing Organization Address City/[facility]/ZIP Co de Phone Number [facility] [address] [place] [address] * (ABNORMAL) GLUCOSE - POINT OF CARE (10/20/2023 5:12 PM CDT) Glucose WB/POC 139(H) 70 - 106 mg/dL 10/24/2023 4:46 PM CDT [facility] Specimen Type Cap Fingerstick 2023 4:46 PM CDT [facility] Blood BLOOD SPECIMEN / Unknown 10/20/2023 5:12 PM CDT 10/24/2023 4:46 PM CDT Jayme Rodriguez MD LAB - POINT OF CARE ORDERABLES Performing Organization Address [facility] Co de Phone Number [facility] [address] [place] [address] * (ABNORMAL) RENAL FUNCTION PANEL (10/20/2023 3:34 PM CDT) Glucose 138(H) 70 - 105 mg/dL 10/20/2023 4:07 PM CDT [facility] Sodium 153(H) 136 - 145 mmol/L 10/20/2023 4:07 PM T [facility] Potassium 3.0(L) 3.5 - 5.1 mmol/L 10/20/2023 4:07 PM T [facility] Chloride 119(H) 98 - 107 mmol/L 10/20/2023 4:07 PM T [facility] CO2 27 22 - 29 mmol/L 10/20/2023 4:07 PM T [facility] Calcium 8.7 8.4 - 10.4 mg/dL 10/20/2023 4:07 PM [facility] Anion Gap 7 6 - 16 mmol/L 10/20/2023 4:07 PM T [facility] BUN 42(H) 7 - 26 mg/dL 10/20/2023 4:07 PM [facility] Creatinine 1.66(H) 0.72 - 1.25 mg/dL 10/20/2023 4:07 PM CDT [facility] Albumin 2.5(L) 3.4 - 5.0 gm/dL 10/20/2023 4:07 PM CDT [facility] Phosphorus 2.4 2.3 - 4.7 mg/dL 10/20/2023 4:07 PM CDT [facility] eGFR by CKD-EPI 43(L) >=90 mL/min/1.7 3 m2 10/20/2023 4:07 PM CDT [facility] Blood BLOOD SPECIMEN / Unknown Lab Venipuncture / Unknown 10/20/2023 3:34 PM CDT 10/20/2023 3:47 PM CDT Tamara Bauman MD LAB - CHEMISTRY RAFFYE RAISA [facility] Organization Address City/State/ZIP Co de Phone Number [facility] [address] [place] [address] * EEG (10/20/2023 12:00 PM CDT) 10/20/2023 12:0 0 PM CDT Narrative Procedure Note Yanira Macias MD - 10/20/2023 7:17 PM CDT [facility] Electroencephalogram Report PATIENT NAME: JOSÉ MIGUEL KEYS MR#: [id number] ROOM#: [id number] CSN: [id number] ADMISSION DATE: 10/12/2023 SEX: M : 1950 [...] etiologies. Clinical correlation is suggested. DICTATOR: YANIRA MACIAS M.D. MP/MODL #:[id number] cc: Yanira Macias M.D. Yanira Macias MD NEUROLOGY ORDERABLES Performing Organization Address [facility]/[place] de Phone Number [facility] * (ABNORMAL) GLUCOSE - POINT OF CARE (10/20/2023 11:53 AM CDT) Glucose WB/POC 141(H) 70 - 106 mg/dL 10/20/2023 12:28 PM CDT [facility] Specimen Type Cap Fingerstick 2023 12:28 PM CDT [facility] Blood BLOOD SPECIMEN / Unknown 10/20/2023 11:53 AM CDT 10/20/2023 12:28 PM CDT Jayme Rodriguez MD LAB - POINT OF CARE ORDERABLES Performing Organization Address [facility] de Phone Number [facility] [address] [place] [address] * (ABNORMAL) GLUCOSE - POINT OF CARE (10/20/2023 6:55 AM CDT) Glucose WB/POC 136(H) 70 - 106 mg/dL 10/20/2023 7:35 AM CDT [facility] Specimen Type Cap Fingerstick 2023 7:35 AM CDT [facility] Blood BLOOD SPECIMEN / Unknown 10/20/2023 6:55 AM CDT 10/20/2023 7:35 AM CDT Jayme Rodriguez MD LAB - POINT OF CARE ORDERABLES Performing Organization Address [facility] Co de Phone Number [facility] [address] [place] [address] * XR CHEST 1VW PORTABLE (10/20/2023 5:03 AM CDT) Anatomical Region Laterality Modality Chest Radiographic Shama ging 10/20/2023 8:06 AM CDT Impressions 10/20/2023 8:07 AM CDT IMPRESSION: Exam with reduced sensitivity. Tube(s) and/or line(s) appear without apparent complication, details in Findings. Persistent segmental retrocardiac opacity with small left pleural effusion. No overt cardiogenic edema Overall, exam is stable from comparison. > Interpreting Provider: Puneet Gerber MD on 10/20/2023 8:07 AM Narrative 10/20/2023 8:07 AM CDT PROCEDURE: ??XR CHEST 1VW PORTABLE CLINICAL INFORMATION (none relevant/not provided if blank): Indication: J96.00: Acute respiratory failure, unspecified whether with hypoxia or hypercapnia (HCC) COMPARISON: 10/17/23 FINDINGS: Monitoring leads obscure part of the patient. Frontal ??technique may decrease exam sensitivity. Patient is rotated resulting in nonstandard imaging views which may reduce exam sensitivity. Low lung volumes noted and may reduce exam sensitivity. Enteric tube projects below the diaphragm, tip not seen. Persistent Retrocardiac ??segmental opacities: differential diagnosis includes atelectasis or pneumonia. Small left pleural effusion is stable Background pattern of generalized coarse reticular opacities likely reflects chronic lung changes ??. No cardiogenic edema. ??No pneumothorax given technique. Cardiomediastinal silhouette is stable from prior exam. Aortic arterial atherosclerotic disease noted. Procedure Note Puneet Gerber MD - 10/20/2023 PROCEDURE: XR CHEST 1VW PORTABLE CLINICAL INFORMATION (none relevant/not provided if blank): Indication: J96.00: Acute respiratory failure, unspecified whether with hypoxia or hypercapnia (HCC) COMPARISON: 10/17/23 FINDINGS: Monitoring leads obscure part of the patient. Frontal technique may decrease exam sensitivity. Patient is rotated resulting in nonstandard imaging views which mayreduce exam sensitivity. Low lung volumes noted and may reduce exam sensitivity. Enteric tube projects below the diaphragm, tip not seen. Persistent Retrocardiac segmental opacities: differential diagnosis includes atelectasis or pneumonia. Small left pleural effusion is stable Background pattern of generalized coarse reticular opacities likely reflects chronic lung changes . No cardiogenic edema. No pneumothorax given technique. Cardiomediastinal silhouette is stable from prior exam. Aortic arterial atherosclerotic disease noted. IMPRESSION: Exam with reduced sensitivity. Tube(s) and/or line(s) appear without apparent complication, details in Findings. Persistent segmental retrocardiac opacity with small left pleuraleffusion. No overt cardiogenic edema Overall, exam is stable from comparison. > Interpreting Provider: Puneet Gerber MD on 10/20/2023 8:07 AM Tiffany Fortune MD DIAGNOSTIC IMAGING O RDERABLES * (ABNORMAL) DIFFERENTIAL MANUAL (10/20/2023 3:53 AM CDT) Neutrophil % 79(H) 41 - 74 % 10/20/2023 6:21 AM [facility] Lymphocyte % 10(L) 17 - 47 % 10/20/2023 6:21 AM [facility] Monocyte % 10 3 - 11 % 10/20/2023 6:21 AM [facility] Eosinophil % 1 0 - 7 % 10/20/2023 6:21 AM [facility] Neutrophil Absolute 11.38(H) 1.60 - 7.50 x10E9/L 10/20/2023 6:21 AM [facility] Lymphocyte Absolute 1.44 1.00 - 4.40 x10E9/L 10/20/2023 6:21 AM [facility] Monocyte Absolute 1.44(H) 0.15 - 1.00 x10E9/L 10/20/2023 6:21 AM [facility] Eosinophil Absolute 0.14 0.00 - 0.60 x10E9/L 10/20/2023 6:21 AM [facility] RBC Morphology REVIEWED 10/20/2023 6:21 AM [facility] Blood BLOOD SPECIMEN / Unknown Lab Venipuncture / Unknown 10/20/2023 3:53 AM CDT 10/20/2023 4:06 AM CDT Tamara Bauman MD LAB - HEMATOLOGY ORD ERABLES [facility] [address] [place] [address] * (ABNORMAL) CBC W AUTO DIFFERENTIAL (10/20/2023 3:53 AM CDT) WBC 14.4(H) 4.0 - 10.7 x10E9/L 10/20/2023 6:22 AM CDT [facility] RBC Count 4.20(L) 4.30 - 5.80 x10E12/L 10/20/2023 6:22 AM CDT [facility] Hemoglobin 12.8(L) 13.3 - 17.5 g/dL 10/20/2023 6:22 AM CDT [facility] Hematocrit 40.2 38.7 - 51.1 % 10/20/2023 6:22 AM CDT [facility] MCV 95.7 80.0 - 98.0 fL 10/20/2023 6:22 AM CDT [facility] MCH 30.5 26.7 - 33.6 pg 10/20/2023 6:22 AM CDT [facility] MCHC 31.8 31.7 - 36.3 g/dL 10/20/2023 6:22 AM CDT [facility] RDW-CV 16.9(H) 11.3 - 14.8 % 10/20/2023 6:22 AM CDT [facility] Platelet Count 176 150 - 420 x10E9/L 10/20/2023 6:22 AM CDT [facility] MPV 13.1(H) 7.8 - 11.4 fL 10/20/2023 6:22 AM CDT [facility] NRBC 2.2(H) <=0.0 /100 WBC 10/20/2023 6:22 AM CDT [facility] Blood BLOOD SPECIMEN / Unknown Lab Venipuncture / Unknown 10/20/2023 3:53 AM CDT 10/20/2023 4:06 AM CDT Tamara Bauman MD LAB - HEMATOLOGY ORD ERABLES [facility] [address] [place] [address] * MAGNESIUM BLOOD (10/20/2023 3:53 AM CDT) Pathologist [facility] Magnesium 2.4 1.6 - 2.6 mg/dL 10/20/2023 4:34 AM [facility] Blood BLOOD SPECIMEN / Unknown Lab Venipuncture / Unknown 10/20/2023 3:53 AM CDT 10/20/2023 4:06 AM CDT Tamara Bauman MD LAB - CHEMISTRY ROYCE KLINE [facility] Organization Address City/State/ZIP Co de Phone Number [facility] [address] [place] [address] * (ABNORMAL) RENAL FUNCTION PANEL (10/20/2023 3:53 AM CDT) Pathologist [facility] Glucose 138(H) 70 - 105 mg/dL 10/20/2023 4:34 AM [facility] Sodium 154(H) 136 - 145 mmol/L 10/20/2023 4:34 AM [facility] Potassium 2.9(L) 3.5 - 5.1 mmol/L 10/20/2023 4:34 AM [facility] Chloride 120(H) 98 - 107 mmol/L 10/20/2023 4:34 AM [facility] CO2 27 22 - 29 mmol/L 10/20/2023 4:34 AM [facility] Calcium 9.2 8.4 - 10.4 mg/dL 10/20/2023 4:34 AM [facility] Anion Gap 7 6 - 16 mmol/L 10/20/2023 4:34 AM [facility] BUN 49(H) 7 - 26 mg/dL 10/20/2023 4:34 AM [facility] Creatinine 1.67(H) 0.72 - 1.25 mg/dL 10/20/2023 4:34 AM [facility] Albumin 2.5(L) 3.4 - 5.0 gm/dL 10/20/2023 4:34 AM [facility] Phosphorus 1.7(L) 2.3 - 4.7 mg/dL 10/20/2023 4:34 AM CDT [facility] eGFR by CKD-EPI 43(L) >=90 mL/min/1.7 3 m2 10/20/2023 4:34 AM CDT [facility] Blood BLOOD SPECIMEN / Unknown Lab Venipuncture / Unknown 10/20/2023 3:53 AM CDT 10/20/2023 4:06 AM CDT Tamara Bauamn MD LAB - CHEMISTRY ROYCE KLINE Performing Organization Address City/[facility]/ZIP Co de Phone Number [facility] [address] [place] [address] * (ABNORMAL) GLUCOSE - POINT OF CARE (10/19/2023 8:13 PM CDT) Glucose WB/POC 150(H) 70 - 106 mg/dL 10/19/2023 8:19 PM CDT [facility] Specimen Type Cap Fingerstick 2023 8:19 PM CDT [facility] Blood BLOOD SPECIMEN / Unknown 10/19/2023 8:13 PM CDT 10/19/2023 8:19 PM CDT Jayme Rodriguez MD LAB - POINT OF CARE ORDERABLES Performing Organization Address [facility]/ZIP Co de Phone Number [facility] [address] [place] [address] * (ABNORMAL) GLUCOSE - POINT OF CARE (10/19/2023 5:17 PM CDT) Glucose WB/POC 142(H) 70 - 106 mg/dL 10/19/2023 5:27 PM CDT [facility] Specimen Type Cap Fingerstick 2023 5:27 PM CDT [facility] Blood BLOOD SPECIMEN / Unknown 10/19/2023 5:17 PM CDT 10/19/2023 5:27 PM CDT Jayme Rodriguez MD LAB - POINT OF CARE ORDERABLES [facility] [address] [place] [address] * (ABNORMAL) SODIUM BLOOD (10/19/2023 4:39 PM CDT) Sodium 155(H) 136 - 145 mmol/L 10/19/2023 4:55 PM CDT [facility] Blood BLOOD SPECIMEN / Unknown Lab Venipuncture / Unknown 10/19/2023 4:39 PM CDT 10/19/2023 4:42 PM CDT Jayme Rodriguez MD LAB - CHEMISTRY ORDE RAISA [facility] [address] [place] [address] * (ABNORMAL) GLUCOSE - POINT OF CARE (10/19/2023 11:57 AM CDT) Glucose WB/POC 161(H) 70 - 106 mg/dL 10/19/2023 5:19 PM CDT [facility] Specimen Type Cap Fingerstick 2023 5:19 PM CDT [facility] Blood BLOOD SPECIMEN / Unknown 10/19/2023 11:57 AM CDT 10/19/2023 5:19 PM CDT Jayme Rodriguez MD LAB - POINT OF CARE ORDERABLES [facility] [address] [place] [address] * (ABNORMAL) GLUCOSE - POINT OF CARE (10/19/2023 6:38 AM CDT) Glucose WB/POC 128(H) 70 - 106 mg/dL 10/24/2023 4:46 PM CDT [facility] Specimen Type Cap Fingerstick 2023 4:46 PM CDT [facility] Blood BLOOD SPECIMEN / Unknown 10/19/2023 6:38 AM CDT 10/24/2023 4:46 PM CDT Jayme Rodriguez MD LAB - POINT OF CARE ORDERABLES [facility] [address] [place] [address] * (ABNORMAL) DIFFERENTIAL MANUAL (10/19/2023 3:36 AM CDT) Neutrophil % 86(H) 41 - 74 % 10/19/2023 7:15 AM CDT [facility] Lymphocyte % 4(L) 17 - 47 % 10/19/2023 7:15 AM CDT [facility] Monocyte % 4 3 - 11 % 10/19/2023 7:15 AM T [facility] Eosinophil % 2 0 - 7 % 10/[facility] 7:[facility] Myelocyte % 4(H) 0% % 10/19/2023 7:15 AM [facility] Neutrophil Absolute 15.48(H) 1.60 - 7.50 x10E9/L 10/19/2023 7:15 AM CDT [facility] Lymphocyte Absolute 0.72(L) 1.00 - 4.40 x10E9/L 10/19/2023 7:15 AM T [facility] Monocyte Absolute 0.72 0.15 - 1.00 x10E9/L 10/19/2023 7:15 AM T [facility] Eosinophil Absolute 0.36 0.00 - 0.60 x10E9/L 10/19/2023 7:15 AM [facility] RBC Morphology REVIEWED 10/19/2023 7:15 AM [facility] Macrocytosis MODERATE(A) (none) 10/19/2023 7:15 AM [facility] Platelet Morphology NORMAL 10/19/2023 7:15 AM T [facility] Blood BLOOD SPECIMEN / Unknown Lab Venipuncture / Unknown 10/19/2023 3:36 AM CDT 10/19/2023 4:23 AM CDT Omi Fortune MD LAB - HEMAT OLOGY ORDERABLES [facility] [address] [place] [address] * (ABNORMAL) CBC W AUTO DIFFERENTIAL (10/19/2023 3:36 AM CDT) WBC 18.0(H) 4.0 - 10.7 x10E9/L 10/19/2023 7:16 AM CDT [facility] RBC Count 3.99(L) 4.30 - 5.80 x10E12/L 10/19/2023 7:16 AM CDT [facility] Hemoglobin 12.3(L) 13.3 - 17.5 g/dL 10/19/2023 7:16 AM CDT [facility] Hematocrit 38.8 38.7 - 51.1 % 10/19/2023 7:16 AM CDT [facility] MCV 97.2 80.0 - 98.0 fL 10/19/2023 7:16 AM CDT [facility] MCH 30.8 26.7 - 33.6 pg 10/19/2023 7:16 AM CDT [facility] MCHC 31.7 31.7 - 36.3 g/dL 10/19/2023 7:16 AM CDT [facility] RDW-CV 16.2(H) 11.3 - 14.8 % 10/19/2023 7:16 AM CDT [facility] Platelet Count 164 150 - 420 x10E9/L 10/19/2023 7:16 AM CDT [facility] MPV 12.8(H) 7.8 - 11.4 fL 10/19/2023 7:16 AM CDT [facility] NRBC 2.3(H) <=0.0 /100 WBC 10/19/2023 7:16 AM CDT [facility] Blood BLOOD SPECIMEN / Unknown Lab Venipuncture / Unknown 10/19/2023 3:36 AM CDT 10/19/2023 4:23 AM CDT Omi Fortune MD LAB - HEMAT OLOGY ORDERABLES [facility] [address] [place] [address] * (ABNORMAL) COMPREHENSIVE METABOLIC PANEL (10/19/2023 3:[address] [facility]) [facility] Glucose 120(H) 70 - 105 mg/dL 10/19/2023 4:43 AM [facility] Sodium 156(H) 136 - 145 mmol/L 10/19/2023 4:43 AM [facility] Potassium 3.3(L) 3.5 - 5.1 mmol/L 10/19/2023 4:43 AM [facility] Chloride 120(H) 98 - 107 mmol/L 10/19/2023 4:43 AM [facility] CO2 27 22 - 29 mmol/L 10/19/2023 4:43 AM [facility] Calcium 9.3 8.4 - 10.4 mg/dL 10/19/2023 4:43 AM [facility] Anion Gap 9 6 - 16 mmol/L 10/19/2023 4:43 AM [facility] BUN 63(H) 7 - 26 mg/dL 10/19/2023 4:43 AM [facility] Creatinine 1.83(H) 0.72 - 1.25 mg/dL 10/19/2023 4:43 AM [facility] Alkaline Phosphatase 80 40 - 150 U/L 10/19/2023 4:43 AM [facility] ALT 38 0 - 55 U/L 10/19/2023 4:43 AM [facility] AST 31 5 - 34 U/L 10/19/2023 4:43 AM [facility] Protein Total 6.8 6.4 - 8.3 gm/dL 10/19/2023 4:43 AM [facility] Albumin 2.5(L) 3.4 - 5.0 gm/dL 10/19/2023 4:43 AM [facility] Bilirubin Total 0.8 0.2 - 1.2 mg/dL 10/19/2023 4:43 AM [facility] eGFR by CKD-EPI 38(L) >=90 mL/min/1.7 3 m2 10/19/2023 4:43 AM [facility] Blood BLOOD SPECIMEN / Unknown Lab Venipuncture / Unknown 10/19/2023 3:36 AM CDT 10/19/2023 4:22 AM CDT Omi Fortune MD LAB - CHEMI STRY ORDERABLES Performing Organization Address City/[facility]/ZIP Co de Phone Number [facility] [address] [place] [address] * MAGNESIUM BLOOD (10/19/2023 3:36 AM CDT) Magnesium 2.6 1.6 - 2.6 mg/dL 10/19/2023 4:43 AM CDT [facility] Blood BLOOD SPECIMEN / Unknown Lab Venipuncture / Unknown 10/19/2023 3:36 AM CDT 10/19/2023 4:22 AM CDT Omi Fortune MD LAB - CHEMI STRY ORDERABLES Performing Organization Address [facility]/ZIP Co de Phone Number [facility] [address] [place] [address] * (ABNORMAL) GLUCOSE - POINT OF CARE (10/18/2023 9:04 PM CDT) Glucose WB/POC 129(H) 70 - 106 mg/dL 10/19/2023 4:19 AM CDT [facility] Specimen Type Cap Fingerstick 2023 4:19 AM CDT [facility] Blood BLOOD SPECIMEN / Unknown 10/18/2023 9:04 PM CDT 10/19/2023 4:19 AM CDT Jayme Rodriguez MD LAB - POINT OF CARE ORDERABLES Performing Organization Address City/[facility]/ZIP Co de Phone Number [facility] [address] [place] [address] * (ABNORMAL) GLUCOSE - POINT OF CARE (10/18/2023 6:03 PM CDT) Glucose WB/POC 126(H) 70 - 106 mg/dL 10/18/2023 6:13 PM CDT [facility] Specimen Type Cap Fingerstick 2023 6:13 PM CDT [facility] Blood BLOOD SPECIMEN / Unknown 10/18/2023 6:03 PM CDT 10/18/2023 6:13 PM CDT Jayme Rodriguez MD LAB - POINT OF CARE ORDERABLES Performing Organization Address [facility]/ZIP Co de Phone Number [facility] [address] [place] [address] * (ABNORMAL) GLUCOSE - POINT OF CARE (10/18/2023 11:52 AM CDT) Glucose WB/POC 137(H) 70 - 106 mg/dL 10/18/2023 12:02 PM CDT [facility] Specimen Type Cap Fingerstick 2023 12:02 PM CDT [facility] Blood BLOOD SPECIMEN / Unknown 10/18/2023 11:52 AM CDT 10/18/2023 12:01 PM CDT Jayme Rodriguez MD LAB - POINT OF CARE ORDERABLES Performing Organization Address [facility]/ZIP Co de Phone Number [facility] [address] [place] [address] * (ABNORMAL) COMPREHENSIVE METABOLIC PANEL (10/18/2023 7:45 AM CDT) Glucose 152(H) 70 - 105 mg/dL 10/18/2023 8:06 AM CDT [facility] Sodium 153(H) 136 - 145 mmol/L 10/18/2023 8:06 AM T [facility] Potassium 3.7 3.5 - 5.1 mmol/L 10/18/2023 8:06 AM T [facility] Chloride 113(H) 98 - 107 mmol/L 10/18/2023 8:06 AM [facility] CO2 28 22 - 29 mmol/L 10/18/2023 8:06 AM T [facility] Calcium 9.5 8.4 - 10.4 mg/dL 10/18/2023 8:06 AM T [facility] Anion Gap 12 6 - 16 mmol/L 10/18/2023 8:06 AM [facility] BUN 81(H) 7 - 26 mg/dL 10/18/2023 8:06 AM [facility] Creatinine 2.34(H) 0.72 - 1.25 mg/dL 10/18/2023 8:06 AM [facility] Alkaline Phosphatase 81 40 - 150 U/L 10/18/2023 8:06 AM [facility] ALT 45 0 - 55 U/L 10/18/2023 8:06 AM [facility] AST 32 5 - 34 U/L 10/18/2023 8:06 AM [facility] Protein Total 6.8 6.4 - 8.3 gm/dL 10/18/2023 8:06 AM [facility] Albumin 2.5(L) 3.4 - 5.0 gm/dL 10/18/2023 8:06 AM [facility] Bilirubin Total 1.1 0.2 - 1.2 mg/dL 10/18/2023 8:06 AM [facility] eGFR by CKD-EPI 28(L) >=90 mL/min/1.7 3 m2 10/18/2023 8:06 AM [facility] Blood BLOOD SPECIMEN / Unknown Lab Venipuncture / Unknown 10/18/2023 7:45 AM CDT 10/18/2023 7:47 AM CDT Omi Fortune MD LAB - CHEMI STRY ORDERABLES [facility] [address] [place] [address] * MAGNESIUM BLOOD (10/18/2023 7:45 AM CDT) Magnesium 2.6 1.6 - 2.6 mg/dL 10/18/2023 8:06 AM T [facility] Blood BLOOD SPECIMEN / Unknown Lab Venipuncture / Unknown 10/18/2023 7:45 AM CDT 10/18/2023 7:47 AM CDT Braga Ataddy Fortune MD LAB - CHEMI STRY ORDERABLES [facility] [address] [place] [id number] * (ABNORMAL) BLOOD GASES ART + COOX PANEL (10/17/2023 9:17 PM CDT) pH Arterial 7.39 7.35 - 7.45 pH 10/17/2023 9:23 PM CDT [facility] pCO2 Arterial 57(H) 35 - 45 mmHg 9:23 PM CDT [facility] pO2 Arterial 135(H) 80 - 100 mmHg 10/17/2023 9:23 PM CDT [facility] HCO3 Arterial 34.5(H) 22.0 - 26.0 mmol/L 10/17/2023 9:23 PM CDT [facility] BE Arterial 7.8(H) -2.0 - 2.0 mmol/L 10/17/2023 9:23 PM CDT [facility] Oxyhemoglobin Arterial 97.5 % 10/17/2023 9:23 PM CDT [facility] Dexoyhemoglobin (HHB) % <1.0 % 10/17/2023 9:23 PM CDT [facility] O2 Content Arterial 16.8 Interpret within clinical context ml/dL 10/17/2023 9:23 PM CDT [facility] O2 Saturation Arterial 100 90 - 100 % 10/17/2023 9:23 PM CDT [facility] Methemoglobin <0.8 0.0 - 2.0 % 10/17/2023 9:23 PM CDT [facility] Carboxyhemoglobin 2.0 0.0 - 2.0 % 2023 9:23 PM CDT [facility] Hemoglobin by COOX 12.1 12.0 - 17.6 g/dL 10/17/2023 9:23 PM CDT [facility] Malik's Test Positive 10/17/2023 9:23 PM CDT [facility] Sample Site Right RA 10/17/2023 9:23 PM CDT [facility] O2 Device Cannula 10/17/2023 9:23 PM CDT [facility] Liter Flow (LPM) 3 10/17/19 9:23 PM CDT [facility] P/F Ratio 10/17/2023 9:23 PM CDT [facility] Comment:C^Incalculable Blood, arterial ARTERIAL BLOOD SPECIMEN / Unknown 10/17/2023 9:17 PM CDT 10/17/2023 9:17 PM CDT Omi Fortune MD LAB - BLOOD GASES ORDERABLES [facility] [address] [phone] * (ABNORMAL) GLUCOSE - POINT OF CARE (10/17/2023 9:05 PM CDT) Glucose WB/POC 108(H) 70 - 106 mg/dL 10/17/2023 9:15 PM CDT [facility] Specimen Type Cap Fingerstick 2023 9:15 PM T [facility] Blood BLOOD SPECIMEN / Unknown 10/17/2023 9:05 PM CDT 10/17/2023 9:15 PM CDT Omi Fortune MD LAB - POINT OF CARE ORDERABLES Performing Organization Address City/[facility]/ZIP Co de Phone Number [facility] [address] [place] [address] * (ABNORMAL) RENAL FUNCTION PANEL (10/17/2023 7:39 PM CDT) Glucose 106(H) 70 - 105 mg/dL 10/17/2023 7:58 PM CDT [facility] Sodium 149(H) 136 - 145 mmol/L 10/17/2023 7:58 PM CDT [facility] Potassium 3.9 3.5 - 5.1 mmol/L 10/17/2023 7:58 PM CDT [facility] Chloride 111(H) 98 - 107 mmol/L 10/17/2023 7:58 PM CDT [facility] CO2 31(H) 22 - 29 mmol/L 10/17/2023 7:58 PM CDT [facility] Calcium 9.5 8.4 - 10.4 mg/dL 10/17/2023 7:58 PM CDT [facility] Anion Gap 7 6 - 16 mmol/L 10/17/2023 7:58 PM CDT [facility] BUN 86(H) 7 - 26 mg/dL 10/17/2023 7:58 PM CDT [facility] Creatinine 2.43(H) 0.72 - 1.25 mg/dL 10/17/2023 7:58 PM CDT [facility] Albumin 2.6(L) 3.4 - 5.0 gm/dL 10/17/2023 7:58 PM CDT [facility] Phosphorus 2.8 2.3 - 4.7 mg/dL 10/17/2023 7:58 PM T [facility] eGFR by CKD-EPI 27(L) >=90 mL/min/1.7 3 m2 10/17/2023 7:58 PM CDT [facility] Blood BLOOD SPECIMEN / Unknown Lab Venipuncture / Unknown 10/17/2023 7:39 PM CDT 10/17/2023 7:42 PM CDT Tamara Bauman MD LAB - CHEMISTRY ROYCE KLINE Performing Organization Address City/[facility]/ZIP Co de Phone Number [facility] [address] [place] [phone] * GLUCOSE - POINT OF CARE (10/17/2023 4:13 PM CDT) [facility] Glucose WB/POC 83 70 - 106 mg/dL 10/24/2023 4:46 PM CDT [facility] Specimen Type Cap Fingerstick 2023 4:46 PM CDT [facility] Blood BLOOD SPECIMEN / Unknown 10/17/2023 4:13 PM CDT 10/24/2023 4:46 PM CDT Omi Fortune MD LAB - POINT OF CARE ORDERABLES [facility] [address] [place] [phone] * (ABNORMAL) BLOOD GASES ART + COOX PANEL (10/17/2023 2:34 PM CDT) pH Arterial 7.45 7.35 - 7.45 pH 10/17/2023 2:37 PM CDT [facility] pCO2 Arterial 48(H) 35 - 45 mmHg 2:37 PM CDT [facility] pO2 Arterial 86 80 - 100 mmHg 10/17/2023 2:37 PM CDT [facility] HCO3 Arterial 33.4(H) 22.0 - 26.0 mmol/L 10/17/2023 2:37 PM CDT [facility] BE Arterial 8.2(H) -2.0 - 2.0 mmol/L 10/17/2023 2:37 PM CDT [facility] Oxyhemoglobin Arterial 96.4 % 10/17/2023 2:37 PM CDT [facility] Dexoyhemoglobin (HHB) % 1.5 % 10/17/2023 2:37 PM CDT [facility] O2 Content Arterial 16.2 Interpret within clinical context ml/dL 10/17/2023 2:37 PM CDT [facility] O2 Saturation Arterial 99 90 - 100 % 10/17/2023 2:37 PM CDT [facility] Methemoglobin <0.8 0.0 - 2.0 % 10/17/2023 2:37 PM CDT [facility] Carboxyhemoglobin 1.8 0.0 - 2.0 % 2023 2:37 PM CDT [facility] Hemoglobin by COOX 11.9(L) 12.0 - 17.6 g/dL 10/17/2023 2:37 PM CDT [facility] Malik's Test Positive 10/17/2023 2:37 PM CDT [facility] Sample Site Left RA 10/17/2023 2:37 PM CDT [facility] Mode Bipap 10/17/2023 2:37 PM CDT [facility] FI O2 30.0 % 10/17/2023 2:37 PM CDT [facility] BIPAP Insp Pressure (cmH2O) 30 10/17/2023 2:37 PM CDT [facility] BIPAP Exp Pressure (cmH2O) 14 10/17/2023 2:37 PM CDT [facility] P/F Ratio 287 10/17/2023 2:37 PM CDT [facility] Blood, arterial ARTERIAL BLOOD SPECIMEN / Unknown 10/17/2023 2:34 PM CDT 10/17/2023 2:34 PM CDT Tiffany Fortune MD LAB - BLOOD GASES OR DERABLES [facility] 300 [facility] [employer] [address] [phone] * (ABNORMAL) RENAL FUNCTION PANEL (10/17/2023 2:21 PM CDT) Glucose 91 70 - 105 mg/dL 10/17/2023 2:44 PM [facility] Sodium 154(H) 136 - 145 mmol/L 10/17/2023 2:44 PM [facility] Potassium 4.5 3.5 - 5.1 mmol/L 10/17/2023 2:44 PM [facility] Chloride 111(H) 98 - 107 mmol/L 10/17/2023 2:44 PM [facility] CO2 31(H) 22 - 29 mmol/L 10/17/2023 2:44 PM [facility] Calcium 9.3 8.4 - 10.4 mg/dL 10/17/2023 2:44 PM [facility] Anion Gap 12 6 - 16 mmol/L 10/17/2023 2:44 PM [facility] BUN 92(H) 7 - 26 mg/dL 10/17/2023 2:44 PM [facility] Creatinine 2.34(H) 0.72 - 1.25 mg/dL 10/17/2023 2:44 PM [facility] Albumin 2.6(L) 3.4 - 5.0 gm/dL 10/17/2023 2:44 PM [facility] Phosphorus 3.4 2.3 - 4.7 mg/dL 10/17/2023 2:44 PM [facility] eGFR by CKD-EPI 28(L) >=90 mL/min/1.7 3 m2 10/17/2023 2:44 PM CDT [facility] Blood BLOOD SPECIMEN / Unknown Lab Venipuncture / Unknown 10/17/2023 2:21 PM CDT 10/17/2023 2:24 PM CDT Tamara Bauman MD LAB - CHEMISTRY ROYCE KLINE [facility] Organization Address City/State/ZIP Co de Phone Number [facility] [address] [place] [address] * XR ABDOMEN KUB (10/17/2023 12:59 PM CDT) Anatomical Region Laterality Modality Abdomen Radiographic Shama ging 10/17/2023 1:08 PM CDT Impressions 10/17/2023 1:09 PM CDT IMPRESSION: NG tube tip projecting at the expected level of the gastric antrum. > Interpreting Provider: Mignon Morales MD on 10/17/2023 1:09 PM Narrative 10/17/2023 1:09 PM CDT PROCEDURE: ??XR ABDOMEN KUB, DATE/TIME OF EXAM: ??10/17/2023 12:59 PM INDICATION: J96.00: Acute respiratory failure, unspecified whether with hypoxia or hypercapnia (HCC) ADDITIONAL CLINICAL INFORMATION: Ordering Provider Reason For Exam: Technologist Note: Additional: 72-year-old, with NG tube placement. COMPARISON: None relevant. FINDINGS: There is an NG tube, with tip by the gastric antrum. There is gas in the stomach, and bowel. Procedure Note Mignon Morales MD - 10/17/2023 PROCEDURE: XR ABDOMEN KUB, DATE/TIME OF EXAM: 10/17/2023 12:59 PM INDICATION: J96.00: Acute respiratory failure, unspecified whether with hypoxia or hypercapnia (HCC) ADDITIONAL CLINICAL INFORMATION: Ordering Provider Reason For Exam: Technologist Note: Additional: 72-year-old, with NG tube placement. COMPARISON: None relevant. FINDINGS: There is an NG tube, with tip by the gastric antrum. There is gas in the stomach, and bowel. IMPRESSION: NG tube tip projecting at the expected level of the gastric antrum. > Interpreting Provider: Mignon Morales MD on 10/17/2023 1:09 PM Omi Fortune MD DIAGNOSTIC IMAGING ORDERABLES * AMMONIA (10/17/2023 12:33 PM CDT) Ammonia 26 18 - 72 umol/L 10/17/2023 12:53 PM CDT [facility] Blood BLOOD SPECIMEN / Unknown Lab Venipuncture / Unknown 10/17/2023 12:33 PM CDT 10/17/2023 12:44 PM CDT Omi Fortune MD LAB - CHEMI STRY ORDERABLES [facility] [address] [facility] [place] [address] * XR CHEST 1VW PORTABLE (10/17/2023 11:34 AM CDT) Anatomical Region Laterality Modality Chest Radiographic Shama ging 10/17/2023 11:4 8 AM CDT Impressions 10/17/2023 11:49 AM CDT IMPRESSION: Near complete clearing of the left mid to lower lung field infiltrates still with some residual pleural and parenchymal change left base > Interpreting Provider: Alberto Atwood MD on 10/17/2023 11:49 AM Narrative 10/17/2023 11:49 AM CDT PROCEDURE: ??XR CHEST 1VW PORTABLE DATE/TIME OF EXAM: ??10/17/2023 11:34 AM INDICATION: J96.00: Acute respiratory failure, unspecified whether with hypoxia or hypercapnia (HCC) COMPARISON: October 15 ADDITIONAL CLINICAL INFORMATION (if provided): Ordering Provider Reason For Exam: Findings: The heart is borderline enlarged. The aorta is normal in caliber. There is significant improved aeration in the left lung with near complete clearing of the patchy infiltrate with small residual left base ??There is no new or confluent infiltrate . There is minor blunting left costophrenic sulcus. There is no pneumothorax. There is no mass or adenopathy.. Procedure Note Alberto Atwood MD - 10/17/2023 PROCEDURE: XR CHEST 1VW PORTABLE DATE/TIME OF EXAM: 10/17/2023 11:34 AM INDICATION: J96.00: Acute respiratory failure, unspecified whether with hypoxia or hypercapnia (HCC) COMPARISON: October 15 ADDITIONAL CLINICAL INFORMATION (if provided): Ordering Provider Reason For Exam: Findings: The heart is borderline enlarged. The aorta is normal in caliber. Thereis significant improved aeration in the left lung with near completeclearing of the patchy infiltrate with small residual left base There is no newor confluent infiltrate . There is minor blunting left costophrenic sulcus. There is no pneumothorax. There is no mass or adenopathy.. IMPRESSION: Near complete clearing of the left mid to lower lung field infiltrates still with some residual pleural and parenchymal change left base > Interpreting Provider: Alberto Atwood MD on 10/17/2023 11:49 AM Omi Fortune MD DIAGNOSTIC IMAGING ORDERABLES * (ABNORMAL) C-REACTIVE PROTEIN (10/17/2023 11:23 AM CDT) C-Reactive Protein 8.84(H) <=0.50 mg/dL 10/17/2023 11:57 AM CDT [facility] Blood BLOOD SPECIMEN / Unknown Lab Venipuncture / Unknown 10/17/2023 11:23 AM CDT 10/17/2023 11:47 AM CDT Aneta Campbell DO LAB - CHEMISTRY O RDERABLES [facility] [address] [place] [address] * (ABNORMAL) B-TYPE NATRIURETIC PEPTIDE (10/17/2023 11:23 AM CDT) BNP 854(H) <=100 pg/mL 10/17/2023 11:47 AM CDT [facility] Blood BLOOD SPECIMEN / Unknown Lab Venipuncture / Unknown 10/17/2023 11:23 AM CDT 10/17/2023 11:25 AM CDT Omi Fortune MD LAB - CHEMI STRY ORDERABLES Performing Organization Address City/[facility]/ZIP Co de Phone Number [facility] [address] [place] [address] * GLUCOSE - POINT OF CARE (10/17/2023 10:48 AM CDT) Glucose WB/POC 100 70 - 106 mg/dL 10/17/2023 10:57 AM CDT [facility] Specimen Type Cap Fingerstick 2023 10:57 AM CDT [facility] Blood BLOOD SPECIMEN / Unknown 10/17/2023 10:48 AM CDT 10/17/2023 10:57 AM CDT Omi Fortune MD LAB - POINT OF CARE ORDERABLES Performing Organization Address [facility]/ZIP Co de Phone Number [facility] [address] [place] [address] * CT HEAD WO CONTRAST (10/17/2023 10:37 AM CDT) Anatomical Region Laterality Modality Head Computed Tomogra [...] Fortune MD CT ORDERABL ES * (ABNORMAL) GLUCOSE - POINT OF CARE (10/17/2023 9:41 AM CDT) Glucose WB/POC 124(H) 70 - 106 mg/dL 10/17/2023 9:47 AM CDT [facility] Specimen Type Cap Fingerstick 2023 9:47 AM CDT [facility] Blood BLOOD SPECIMEN / Unknown 10/17/2023 9:41 AM CDT 10/17/2023 9:47 AM CDT Omi Fortune MD LAB - POINT OF CARE ORDERABLES [facility] [address] [place] [address] * GLUCOSE - POINT OF CARE (10/17/2023 8:35 AM CDT) [facility] Glucose WB/POC 102 70 - 106 mg/dL 10/17/2023 8:41 AM CDT [facility] Specimen Type Cap Fingerstick 2023 8:41 AM CDT [facility] Blood BLOOD SPECIMEN / Unknown 10/17/2023 8:35 AM CDT 10/17/2023 8:41 AM CDT Omi Fortune MD LAB - POINT OF CARE ORDERABLES [facility] [address] [place] [address] * (ABNORMAL) BLOOD GASES ART + COOX PANEL (10/17/2023 8:11 AM CDT) [facility] pH Arterial 7.32(L) 7.35 - 7.45 pH 10/17/2023 8:13 AM CDT [facility] pCO2 Arterial 61(H) 35 - 45 mmHg 8:13 AM CDT [facility] pO2 Arterial 146(H) 80 - 100 mmHg 10/17/2023 8:13 AM CDT [facility] HCO3 Arterial 31.4(H) 22.0 - 26.0 mmol/L 10/17/2023 8:13 AM CDT [facility] BE Arterial 3.8(H) -2.0 - 2.0 mmol/L 10/17/2023 8:13 AM CDT [facility] Oxyhemoglobin Arterial 97.1 % 10/17/2023 8:13 AM CDT [facility] Dexoyhemoglobin (HHB) % <1.0 % 10/17/2023 8:13 AM CDT [facility] O2 Content Arterial 17.3 Interpret within clinical context ml/dL 10/17/2023 8:13 AM CDT [facility] O2 Saturation Arterial 99 90 - 100 % 10/17/2023 8:13 AM CDT [facility] Methemoglobin <0.8 0.0 - 2.0 % 10/17/2023 8:13 AM CDT [facility] Carboxyhemoglobin 1.4 0.0 - 2.0 % 2023 8:13 AM CDT [facility] Hemoglobin by COOX 12.5 12.0 - 17.6 g/dL 10/17/2023 8:13 AM CDT [facility] Malik's Test Positive 10/17/2023 8:13 AM CDT [facility] Sample Site Left RA 10/17/2023 8:13 AM CDT [facility] Mode Bipap 10/17/2023 8:13 AM CDT [facility] FI O2 40.0 % 10/17/2023 8:13 AM CDT [facility] BIPAP Insp Pressure (cmH2O) 30 10/17/2023 8:13 AM CDT [facility] BIPAP Exp Pressure (cmH2O) 14 10/17/2023 8:13 AM CDT [facility] P/F Ratio 365 10/17/2023 8:13 AM CDT [facility] Blood, arterial ARTERIAL BLOOD SPECIMEN / Unknown 10/17/2023 8:11 AM CDT 10/17/2023 8:11 AM CDT Aaron Hook DO LAB - BLOOD GASES OR DERABLES Performing Organization Address City/State/[facility] Co de Phone Number [facility] [address] [phone] * (ABNORMAL) GLUCOSE - POINT OF CARE (10/17/2023 7:35 AM CDT) Pathologist [facility] Glucose WB/POC 108(H) 70 - 106 mg/dL 10/17/2023 7:41 AM CDT [facility] Specimen Type Cap Fingerstick 2023 7:41 AM CDT [facility] Blood BLOOD SPECIMEN / Unknown 10/17/2023 7:35 AM CDT 10/17/2023 7:41 AM CDT Omi Fortune MD LAB - POINT OF CARE ORDERABLES [facility] [address] [place] [address] * GLUCOSE - POINT OF CARE (10/17/2023 6:29 AM CDT) Glucose WB/POC 76 70 - 106 mg/dL 10/17/2023 8:01 PM CDT [facility] Specimen Type Cap Fingerstick 2023 8:01 PM CDT [facility] Blood BLOOD SPECIMEN / Unknown 10/17/2023 6:29 AM CDT 10/17/2023 8:01 PM CDT Omi Fortune MD LAB - POINT OF CARE ORDERABLES Performing Organization Address [facility]/ZIP Co de Phone Number [facility] [address] [place] [address] * (ABNORMAL) GLUCOSE - POINT OF CARE (10/17/2023 5:35 AM CDT) Glucose WB/POC 124(H) 70 - 106 mg/dL 10/17/2023 5:44 AM CDT [facility] Specimen Type Cap Fingerstick 2023 5:44 AM CDT [facility] Blood BLOOD SPECIMEN / Unknown 10/17/2023 5:35 AM CDT 10/17/2023 5:44 AM CDT Omi Fortune MD LAB - POINT OF CARE ORDERABLES [facility] [address] [place] [address] * GLUCOSE - POINT OF CARE (10/17/2023 4:49 AM CDT) Glucose WB/POC 91 70 - 106 mg/dL 10/17/2023 5:23 AM CDT [facility] Specimen Type Cap Fingerstick 2023 5:23 AM CDT [facility] Blood BLOOD SPECIMEN / Unknown 10/17/2023 4:49 AM CDT 10/17/2023 5:23 AM CDT Omi Christopher Fortune MD LAB - POINT OF CARE ORDERABLES [facility] [address] [place] [address] * (ABNORMAL) BLOOD GASES ART + COOX PANEL (10/17/2023 4:20 AM CDT) pH Arterial 7.32(L) 7.35 - 7.45 pH 10/17/2023 4:24 AM CDT [facility] pCO2 Arterial 61(H) 35 - 45 mmHg 4:24 AM CDT [facility] pO2 Arterial 110(H) 80 - 100 mmHg 10/17/2023 4:24 AM CDT [facility] HCO3 Arterial 31.4(H) 22.0 - 26.0 mmol/L 10/17/2023 4:24 AM CDT [facility] BE Arterial 3.9(H) -2.0 - 2.0 mmol/L 10/17/2023 4:24 AM CDT [facility] Oxyhemoglobin Arterial 96.9 % 10/17/2023 4:24 AM CDT [facility] Dexoyhemoglobin (HHB) % <1.0 % 10/17/2023 4:24 AM CDT [facility] O2 Content Arterial 16.0 Interpret within clinical context ml/dL 10/17/2023 4:24 AM CDT [facility] O2 Saturation Arterial 99 90 - 100 % 10/17/2023 4:24 AM CDT [facility] Methemoglobin <0.8 0.0 - 2.0 % 10/17/2023 4:24 AM CDT [facility] Carboxyhemoglobin 1.8 0.0 - 2.0 % 2023 4:24 AM CDT [facility] Hemoglobin by COOX 11.6(L) 12.0 - 17.6 g/dL 10/17/2023 4:24 AM CDT [facility] Malik's Test Positive 10/17/2023 4:24 AM CDT [facility] Sample Site Left RA 10/17/2023 4:24 AM CDT [facility] Mode Bipap 10/17/2023 4:24 AM CDT [facility] FI O2 40.0 % 10/17/2023 4:24 AM CDT [facility] Mechanical Respiratory Rate (bpm) 12 10/17/2023 4:24 AM CDT [facility] BIPAP Insp Pressure (cmH2O) 30 10/17/2023 4:24 AM CDT [facility] BIPAP Exp Pressure (cmH2O) 14 10/17/2023 4:24 AM CDT [facility] P/F Ratio 275 10/17/2023 4:24 AM T [facility] Blood, arterial ARTERIAL BLOOD SPECIMEN / Unknown 10/17/2023 4:20 AM CDT 10/17/2023 4:20 AM CDT Aaron Hook DO LAB - BLOOD GASES OR DERABLES Performing Organization Address [facility]/ZIP Co de Phone Number [facility] [address] [phone] * (ABNORMAL) B-TYPE NATRIURETIC PEPTIDE (10/17/2023 3:58 AM CDT) BNP 901(H) <=100 pg/mL 10/17/2023 9:48 AM CDT [facility] Blood BLOOD SPECIMEN / Unknown Lab Venipuncture / Unknown 10/17/2023 3:58 AM CDT 10/17/2023 3:58 AM CDT Tiffany Fortune MD LAB - CHEMISTRY ROYCE KLINE [facility] [address] [place] [address] * (ABNORMAL) CBC W AUTO DIFFERENTIAL (10/17/2023 3:58 AM CDT) WBC 16.7(H) 4.0 - 10.7 x10E9/L 10/17/2023 10:22 AM CDT [facility] RBC Count 3.84(L) 4.30 - 5.80 x10E12/L 10/17/2023 10:22 AM [facility] Hemoglobin 11.7(L) 13.3 - 17.5 g/dL 10/17/2023 10:22 AM [facility] Hematocrit 38.0(L) 38.7 - 51.1 % 10/17/2023 10:22 AM [facility] MCV 99.0(H) 80.0 - 98.0 fL 10/17/2023 10:22 AM [facility] MCH 30.5 26.7 - 33.6 pg 10/17/2023 10:22 AM [facility] MCHC 30.8(L) 31.7 - 36.3 g/dL 10/17/2023 10:22 AM [facility] RDW-CV 16.5(H) 11.3 - 14.8 % 10/17/2023 10:22 AM [facility] Platelet Count 133(L) 150 - 420 x10E9/L 10/17/2023 10:22 AM [facility] MPV 12.8(H) 7.8 - 11.4 fL 10/17/2023 10:22 AM [facility] NRBC 2.9(H) <=0.0 /100 WBC 10/17/2023 10:22 AM [facility] Blood BLOOD SPECIMEN / Unknown Lab Venipuncture / Unknown 10/17/2023 3:58 AM CDT 10/17/2023 3:58 AM CDT Omi Fortune MD LAB - HEMAT OLOGY ORDERABLES [facility] [address] [place] [address] * (ABNORMAL) COMPREHENSIVE METABOLIC PANEL (10/17/2023 3:36 AM CDT) [facility] Glucose 107(H) 70 - 105 mg/dL 10/17/2023 3:58 AM CDT [facility] Sodium 146(H) 136 - 145 mmol/L 10/17/2023 3:58 AM [facility] Potassium 5.6(H) 3.5 - 5.1 mmol/L 10/17/2023 3:58 AM [facility] Chloride 115(H) 98 - 107 mmol/L 10/17/2023 3:58 AM [facility] CO2 20(L) 22 - 29 mmol/L 10/17/2023 3:58 AM [facility] Calcium 9.0 8.4 - 10.4 mg/dL 10/17/2023 3:58 AM [facility] Anion Gap 11 6 - 16 mmol/L 10/17/2023 3:58 AM [facility] BUN 89(H) 7 - 26 mg/dL 10/17/2023 3:58 AM [facility] Creatinine 2.51(H) 0.72 - 1.25 mg/dL 10/17/2023 3:58 AM [facility] Alkaline Phosphatase 73 40 - 150 U/L 10/17/2023 3:58 AM [facility] ALT 53 0 - 55 U/L 10/17/2023 3:58 AM [facility] AST 57(H) 5 - 34 U/L 10/17/2023 3:58 AM [facility] Protein Total 7.1 6.4 - 8.3 gm/dL 10/17/2023 3:58 AM [facility] Albumin 2.5(L) 3.4 - 5.0 gm/dL 10/17/2023 3:58 AM [facility] Bilirubin Total 0.5 0.2 - 1.2 mg/dL 10/17/2023 3:58 AM [facility] eGFR by CKD-EPI 26(L) >=90 mL/min/1.7 3 m2 10/17/2023 3:58 AM [facility] Blood BLOOD SPECIMEN / Unknown Lab Venipuncture / Unknown 10/17/2023 3:36 AM CDT 10/17/2023 3:38 AM T Omi Fortune MD LAB - CHEMI STRY ORDERABLES [facility] [address] [place] [address] * (ABNORMAL) MAGNESIUM BLOOD (10/17/2023 3:36 AM CDT) Pathologist [facility] Magnesium 2.7(H) 1.6 - 2.6 mg/dL 10/17/2023 3:58 AM CDT [facility] Blood BLOOD SPECIMEN / Unknown Lab Venipuncture / Unknown 10/17/2023 3:36 AM CDT 10/17/2023 3:38 AM CDT Omi Evansaddy Fortune MD LAB - CHEMI STRY ORDERABLES [facility] [address] [place] [address] * (ABNORMAL) BLOOD GASES ART + COOX PANEL (10/17/2023 2:00 AM CDT) Pathologist [facility] pH Arterial 7.28(L) 7.35 - 7.45 pH 10/17/2023 2:17 AM CDT [facility] pCO2 Arterial 66(H) 35 - 45 mmHg 2:17 AM CDT [facility] pO2 Arterial 111(H) 80 - 100 mmHg 10/17/2023 2:17 AM CDT [facility] HCO3 Arterial 31.0(H) 22.0 - 26.0 mmol/L 10/17/2023 2:17 AM CDT [facility] BE Arterial 2.7(H) -2.0 - 2.0 mmol/L 10/17/2023 2:17 AM CDT [facility] Oxyhemoglobin Arterial 96.9 % 10/17/2023 2:17 AM CDT [facility] Dexoyhemoglobin (HHB) % <1.0 % 10/17/2023 2:17 AM CDT [facility] O2 Content Arterial 16.5 Interpret within clinical context ml/dL 10/17/2023 2:17 AM CDT [facility] O2 Saturation Arterial 99 90 - 100 % 10/17/2023 2:17 AM CDT [facility] Methemoglobin <0.8 0.0 - 2.0 % 10/17/2023 2:17 AM CDT [facility] Carboxyhemoglobin 1.9 0.0 - 2.0 % 2023 2:17 AM CDT [facility] Hemoglobin by COOX 12.0 12.0 - 17.6 g/dL 10/17/2023 2:17 AM CDT [facility] Malik's Test Positive 10/17/2023 2:17 AM CDT [facility] Sample Site Left RA 10/17/2023 2:17 AM CDT [facility] FI O2 40.0 % 10/17/2023 2:17 AM CDT [facility] BIPAP Insp Pressure (cmH2O) 24 10/17/2023 2:17 AM CDT [facility] BIPAP Exp Pressure (cmH2O) 14 10/17/2023 2:17 AM CDT [facility] P/F Ratio 278 10/17/2023 2:17 AM CDT [facility] Blood, arterial ARTERIAL BLOOD SPECIMEN / Unknown 10/17/2023 2:00 AM CDT 10/17/2023 2:00 AM CDT Halina Barraza MD LAB - BLOOD GASES OR DERABLES [facility] [address] [facility] [employer] [address] [phone] * (ABNORMAL) BLOOD GASES ART + COOX PANEL (10/17/2023 12:51 AM CDT) pH Arterial 7.28(L) 7.35 - 7.45 pH 10/17/2023 1:03 AM CDT [facility] pCO2 Arterial 67(H) 35 - 45 mmHg 1:03 AM CDT [facility] pO2 Arterial 142(H) 80 - 100 mmHg 10/17/2023 1:03 AM CDT [facility] HCO3 Arterial 31.5(H) 22.0 - 26.0 mmol/L 10/17/2023 1:03 AM CDT [facility] BE Arterial 3.1(H) -2.0 - 2.0 mmol/L 10/17/2023 1:03 AM CDT [facility] Oxyhemoglobin Arterial 97.2 % 10/17/2023 1:03 AM CDT [facility] Dexoyhemoglobin (HHB) % <1.0 % 10/17/2023 1:03 AM CDT [facility] O2 Content Arterial 16.5 Interpret within clinical context ml/dL 10/17/2023 1:03 AM CDT [facility] O2 Saturation Arterial 99 90 - 100 % 10/17/2023 1:03 AM CDT [facility] Methemoglobin <0.8 0.0 - 2.0 % 10/17/2023 1:03 AM CDT [facility] Carboxyhemoglobin 1.6 0.0 - 2.0 % 2023 1:03 AM CDT [facility] Hemoglobin by COOX 11.9(L) 12.0 - 17.6 g/dL 10/17/2023 1:03 AM CDT [facility] Malik's Test Positive 10/17/2023 1:03 AM CDT [facility] RESP THERAP[facility] Sample Site Left RA 10/17/2023 1:03 AM CDT [facility] Mode Bipap 10/17/2023 1:03 AM CDT [facility] FI O2 50.0 % 10/17/2023 1:03 AM CDT [facility] Mechanical Respiratory Rate (bpm) 12 10/17/2023 1:03 AM CDT [facility] BIPAP Insp Pressure (cmH2O) 22 10/17/2023 1:03 AM CDT [facility] BIPAP Exp Pressure (cmH2O) 14 10/17/2023 1:03 AM CDT [facility] P/F Ratio 284 10/17/2023 1:03 AM CDT [facility] Blood, arterial ARTERIAL BLOOD SPECIMEN / Unknown 10/17/2023 12:51 AM CDT 10/17/2023 12:51 AM CDT Aaorn Hook DO LAB - BLOOD GASES OR DERABLES [facility] [address] [facility] [employer] [address] [phone] * (ABNORMAL) GLUCOSE - POINT OF CARE (10/16/2023 11:31 PM CDT) Glucose WB/POC 145(H) 70 - 106 mg/dL 10/16/2023 11:41 PM CDT [facility] Specimen Type Cap Fingerstick 2023 11:41 PM CDT [facility] Blood BLOOD SPECIMEN / Unknown 10/16/2023 11:31 PM CDT 10/16/2023 11:41 PM CDT Omi Fortune MD LAB - POINT OF CARE ORDERABLES [facility] [address] [place] [address] * XR CHEST 1VW PORTABLE (10/16/2023 10:36 PM CDT) Anatomical Region Laterality Modality Chest Radiographic Shama ging 10/17/2023 8:54 AM CDT Impressions 10/17/2023 8:56 AM CDT IMPRESSION: Worsening left lung opacities, evidence for worsening pneumonia. > Interpreting Provider: Adam Kang MD on 10/17/2023 8:56 AM Narrative 10/17/2023 8:56 AM CDT PROCEDURE: ??XR CHEST 1VW PORTABLE DATE/TIME OF EXAM: ??10/16/2023 10:36 PM CLINICAL INFORMATION: None relevant/not provided if blank. Indication: J96.00: Acute respiratory failure, unspecified whether with hypoxia or hypercapnia (HCC) Additional History: COMPARISON: 10/16/2023 at 11:33 AM FINDINGS: Acute respiratory failure today. Radiograph at 2223 shows increasing opacity within the left lung. No pneumothorax. No large pleural effusion. Mild right sided opacities appear similar. Procedure Note Adam Kang MD - 10/17/2023 PROCEDURE: XR CHEST 1VW PORTABLE DATE/TIME OF EXAM: 10/16/2023 10:36 PM CLINICAL INFORMATION: None relevant/not provided if blank. Indication: J96.00: Acute respiratory failure, unspecified whether with hypoxia or hypercapnia (HCC) Additional History: COMPARISON: 10/16/2023 at 11:33 AM FINDINGS: Acute respiratory failure today. Radiograph at 2223 shows increasing opacity within the left lung. No pneumothorax. No large pleuraleffusion. Mild right sided opacities appear similar. IMPRESSION: Worsening left lung opacities, evidence for worsening pneumonia. > Interpreting Provider: Adam Kang MD on 10/17/2023 8:56 AM Aaron Hook DO DIAGNOSTIC IMAGING O RDERABLES * (ABNORMAL) BASIC METABOLIC PANEL (CALCIUM TOTAL) (10/16/2023 10:34 PM CDT) Pathologist [facility] Glucose 127(H) 70 - 105 mg/dL 10/16/2023 10:53 PM CDT [facility] Sodium 149(H) 136 - 145 mmol/L 10/16/2023 10:53 PM CDT [facility] Potassium 4.9 3.5 - 5.1 mmol/L 10/16/2023 10:53 PM CDT [facility] Chloride 111(H) 98 - 107 mmol/L 10/16/2023 10:53 PM CDT [facility] CO2 30(H) 22 - 29 mmol/L 10/16/2023 10:53 PM CDT [facility] Calcium 9.2 8.4 - 10.4 mg/dL 10/16/2023 10:53 PM CDT [facility] Anion Gap 8 6 - 16 mmol/L 10/16/2023 10:53 PM CDT [facility] BUN 93(H) 7 - 26 mg/dL 10/16/2023 10:53 PM CDT [facility] Creatinine 2.65(H) 0.72 - 1.25 mg/dL 10/16/2023 10:53 PM CDT [facility] eGFR by CKD-EPI 25(L) >=90 mL/min/1.7 3 m2 10/16/2023 10:53 PM CDT [facility] Blood BLOOD SPECIMEN / Unknown Venipuncture / Unknown 10/16/2023 10:34 PM CDT 10/16/2023 10:38 PM CDT Aaron Hook DO LAB - CHEMISTRY ROYCE KLINE [facility] [address] [place] [address] [phone] * (ABNORMAL) BLOOD GASES ART + COOX PANEL (10/16/2023 10:27 PM CDT) pH Arterial 7.31(L) 7.35 - 7.45 pH 10/16/2023 10:29 PM CDT [facility] pCO2 Arterial 61(H) 35 - 45 mmHg 10:29 PM CDT [facility] pO2 Arterial 78(L) 80 - 100 mmHg 10/16/2023 10:29 PM CDT [facility] HCO3 Arterial 30.7(H) 22.0 - 26.0 mmol/L 10/16/2023 10:29 PM CDT [facility] BE Arterial 3.0(H) -2.0 - 2.0 mmol/L 10/16/2023 10:29 PM CDT [facility] Oxyhemoglobin Arterial 94.8 % 10/16/2023 10:29 PM CDT [facility] Dexoyhemoglobin (HHB) % 2.8 % 10/16/2023 10:29 PM CDT [facility] O2 Content Arterial 16.6 Interpret within clinical context ml/dL 10/16/2023 10:29 PM CDT [facility] O2 Saturation Arterial 97 90 - 100 % 10/16/2023 10:29 PM CDT [facility] Methemoglobin <0.8 0.0 - 2.0 % 10/16/2023 10:29 PM CDT [facility] Carboxyhemoglobin 2.0 0.0 - 2.0 % 2023 10:29 PM CDT [facility] Hemoglobin by COOX 12.4 12.0 - 17.6 g/dL 10/16/2023 10:29 PM CDT [facility] Malik's Test Positive 10/16/2023 10:29 PM CDT [facility] Sample Site Left RA 10/16/2023 10:29 PM CDT [facility] O2 Device Cannula 10/16/2023 10:29 PM CDT [facility] Liter Flow (LPM) 2 10/16/19 10:29 PM CDT [facility] P/F Ratio 10/16/2023 10:29 PM CDT [facility] Comment:C^Incalculable Blood, arterial ARTERIAL BLOOD SPECIMEN / Unknown 10/16/2023 10:27 PM CDT 10/16/2023 10:27 PM CDT Aaron Hook DO LAB - BLOOD GASES OR DERABLES [facility] [address] [phone] * (ABNORMAL) GLUCOSE - POINT OF CARE (10/16/2023 10:21 PM CDT) Glucose WB/POC 132(H) 70 - 106 mg/dL 10/16/2023 10:32 PM CDT [facility] Specimen Type Cap Fingerstick 2023 10:32 PM CDT [facility] Blood BLOOD SPECIMEN / Unknown 10/16/2023 10:21 PM CDT 10/16/2023 10:32 PM CDT Omi Fortune MD LAB - POINT OF CARE ORDERABLES Performing Organization Address [facility]/ZIP Co de Phone Number [facility] [address] [place] [address] * (ABNORMAL) GLUCOSE - POINT OF CARE (10/16/2023 9:54 PM CDT) Glucose WB/POC 141(H) 70 - 106 mg/dL 10/18/2023 12:09 PM CDT [facility] Specimen Type Cap Fingerstick 2023 12:09 PM CDT [facility] Blood BLOOD SPECIMEN / Unknown 10/16/2023 9:54 PM CDT 10/18/2023 12:09 PM CDT Omi Fortune MD LAB - POINT OF CARE ORDERABLES Performing Organization Address [facility]/ZIP Co de Phone Number [facility] [address] [place] [address] * (ABNORMAL) GLUCOSE - POINT OF CARE (10/16/2023 6:02 PM CDT) Glucose WB/POC 128(H) 70 - 106 mg/dL 10/16/2023 6:08 PM CDT [facility] Specimen Type Cap Fingerstick 2023 6:08 PM CDT [facility] Blood BLOOD SPECIMEN / Unknown 10/16/2023 6:02 PM CDT 10/16/2023 6:08 PM CDT Omi Fortune MD LAB - POINT OF CARE ORDERABLES Performing Organization Address City/[facility]/ZIP Co de Phone Number [facility] [address] [place] [address] * (ABNORMAL) GLUCOSE - POINT OF CARE (10/16/2023 12:43 PM CDT) Glucose WB/POC 136(H) 70 - 106 mg/dL 10/16/2023 1:06 PM CDT [facility] Specimen Type Cap Fingerstick 2023 1:06 PM CDT [facility] Blood BLOOD SPECIMEN / Unknown 10/16/2023 12:43 PM CDT 10/16/2023 1:06 PM CDT Omi Fortune MD LAB - POINT OF CARE ORDERABLES Performing Organization Address City/[facility]/ZIP Co de Phone Number [facility] [address] [place] [address] * XR CHEST 1VW PORTABLE (10/16/2023 11:35 AM CDT) Anatomical Region Laterality Modality Chest Radiographic Shama ging 10/16/2023 6:21 PM CDT Impressions 10/16/2023 6:22 PM CDT IMPRESSION: Loculated bilateral pleural effusions and bilateral atelectasis are better detailed on concurrent separately dictated chest CT. No pneumothorax. Cardiomegaly and pulmonary vascular congestion without overt pulmonary edema. No acute osseous abnormality. > Interpreting Provider: Tod Marquez MD on 10/16/2023 6:22 PM Narrative 10/16/2023 6:22 PM CDT PROCEDURE: ??XR CHEST 1VW PORTABLE DATE/TIME OF EXAM: ??10/16/2023 11:35 AM CLINICAL INFORMATION: None relevant/not provided if blank. Indication: J96.00: Acute respiratory failure, unspecified whether with hypoxia or hypercapnia (HCC) Additional History: COMPARISON: Concurrent chest CT FINDINGS: Due to brevity of the report, the findings are included in the impression section below. Procedure Note Tod Marquez MD - 10/16/2023 PROCEDURE: XR CHEST 1VW PORTABLE DATE/TIME OF EXAM: 10/16/2023 11:35 AM CLINICAL INFORMATION: None relevant/not provided if blank. Indication: J96.00: Acute respiratory failure, unspecified whether with hypoxia or hypercapnia (HCC) Additional History: COMPARISON: Concurrent chest CT FINDINGS: Due to brevity of the report, the findings are included in theimpression section below. IMPRESSION: Loculated bilateral pleural effusions and bilateral atelectasis arebetter detailed on concurrent separately dictated chest CT. No pneumothorax. Cardiomegaly and pulmonary vascular congestion without overt pulmonary edema. No acute osseous abnormality. > Interpreting Provider: Tod Marquez MD on 10/16/2023 6:22 PM Omi Fortune MD DIAGNOSTIC IMAGING ORDERABLES * CT CHEST ABDOMEN PELVIS WO CONT (10/16/2023 11:25 AM CDT) Anatomical Region Laterality Modality Chest, Abdomen, Pelvis [...] Fortune MD CT ORDERABL ES * (ABNORMAL) GLUCOSE - POINT OF CARE (10/16/2023 6:51 AM CDT) Glucose WB/POC 108(H) 70 - 106 mg/dL 10/16/2023 7:03 AM CDT [facility] Specimen Type Cap Fingerstick 2023 7:03 AM CDT [facility] Blood BLOOD SPECIMEN / Unknown 10/16/2023 6:51 AM CDT 10/16/2023 7:03 AM CDT Omi Fortune MD LAB - POINT OF CARE ORDERABLES [facility] [address] [place] [address] * (ABNORMAL) DIFFERENTIAL MANUAL (10/16/2023 3:55 AM CDT) Neutrophil % 88(H) 41 - 74 % 10/16/2023 7:42 AM CDT [facility] Lymphocyte % 3(L) 17 - 47 % 10/16/2023 7:42 AM CDT [facility] Monocyte % 5 3 - 11 % 10/16/2023 7:42 AM CDT [facility] Metamyelocyte % 1(H) 0% % 7:42 AM CDT [facility] Myelocyte % 3(H) 0% % 10/16/2023 7:42 AM CDT [facility] Neutrophil Absolute 16.46(H) 1.60 - 7.50 x10E9/L 10/16/2023 7:42 AM CDT [facility] Lymphocyte Absolute 0.56(L) 1.00 - 4.40 x10E9/L 10/16/2023 7:42 AM CDT [facility] Monocyte Absolute 0.94 0.15 - 1.00 x10E9/L 10/16/2023 7:42 AM CDT [facility] RBC Morphology NORMAL 10/16/2023 7:42 AM CDT [facility] Blood BLOOD SPECIMEN / Unknown Lab Venipuncture / Unknown 10/16/2023 3:55 AM CDT 10/16/2023 4:08 AM CDT Omi Fortune MD LAB - HEMAT OLOGY ORDERABLES [facility] [address] [place] [address] * (ABNORMAL) CBC W AUTO DIFFERENTIAL (10/16/2023 3:55 AM CDT) WBC 18.7(H) 4.0 - 10.7 x10E9/L 10/16/2023 7:43 AM CDT [facility] RBC Count 3.74(L) 4.30 - 5.80 x10E12/L 10/16/2023 7:43 AM CDT [facility] Hemoglobin 11.7(L) 13.3 - 17.5 g/dL 10/16/2023 7:43 AM [facility] Hematocrit 36.9(L) 38.7 - 51.1 % 10/16/2023 7:43 AM CDT [facility] MCV 98.7(H) 80.0 - 98.0 fL 10/16/2023 7:43 AM CDT [facility] MCH 31.3 26.7 - 33.6 pg 10/16/2023 7:43 AM CDT [facility] MCHC 31.7 31.7 - 36.3 g/dL 10/16/2023 7:43 AM [facility] RDW-CV 16.0(H) 11.3 - 14.8 % 10/16/2023 7:43 AM [facility] Platelet Count 128(L) 150 - 420 x10E9/L 10/16/2023 7:43 AM [facility] MPV 12.8(H) 7.8 - 11.4 fL 10/16/2023 7:43 AM [facility] NRBC 1.8(H) <=0.0 /100 WBC 10/16/2023 7:43 AM [facility] Blood BLOOD SPECIMEN / Unknown Lab Venipuncture / Unknown 10/16/2023 3:55 AM CDT 10/16/2023 4:08 AM CDT Omi Fortune MD LAB - HEMAT OLOGY ORDERABLES [facility] [address] [place] [address] * (ABNORMAL) COMPREHENSIVE METABOLIC PANEL (10/16/2023 3:55 AM CDT) Glucose 112(H) 70 - 105 mg/dL 10/16/2023 4:38 AM CDT [facility] Sodium 145 136 - 145 mmol/L 10/16/2023 4:38 AM CDT [facility] Potassium 4.8 3.5 - 5.1 mmol/L 10/16/2023 4:38 AM [facility] Chloride 111(H) 98 - 107 mmol/L 10/16/2023 4:38 AM [facility] CO2 24 22 - 29 mmol/L 10/16/2023 4:38 AM [facility] Calcium 9.0 8.4 - 10.4 mg/dL 10/16/2023 4:38 AM [facility] Anion Gap 10 6 - 16 mmol/L 10/16/2023 4:38 AM [facility] BUN 88(H) 7 - 26 mg/dL 10/16/2023 4:38 AM [facility] Creatinine 2.72(H) 0.72 - 1.25 mg/dL 10/16/2023 4:38 AM [facility] Alkaline Phosphatase 65 40 - 150 U/L 10/16/2023 4:38 AM [facility] ALT 52 0 - 55 U/L 10/16/2023 4:38 AM [facility] AST 58(H) 5 - 34 U/L 10/16/2023 4:38 AM [facility] Protein Total 7.1 6.4 - 8.3 gm/dL 10/16/2023 4:38 AM [facility] Albumin 2.5(L) 3.4 - 5.0 gm/dL 10/16/2023 4:38 AM [facility] Bilirubin Total 0.5 0.2 - 1.2 mg/dL 10/16/2023 4:38 AM [facility] eGFR by CKD-EPI 24(L) >=90 mL/min/1.7 3 m2 10/16/2023 4:38 AM [facility] Blood BLOOD SPECIMEN / Unknown Lab Venipuncture / Unknown 10/16/2023 3:55 AM T 10/16/2023 4:[address] [facility] Omi Fortune MD LAB - CHEMI STRY ORDERABLES [facility] [address] [place] [address] * MAGNESIUM BLOOD (10/16/2023 3:55 AM CDT) Magnesium 2.6 1.6 - 2.6 mg/dL 10/16/2023 4:38 AM CDT [facility] Blood BLOOD SPECIMEN / Unknown Lab Venipuncture / Unknown 10/16/2023 3:55 AM CDT 10/16/2023 4:08 AM CDT Omi Fortune MD LAB - CHEMI STRY ORDERABLES Performing Organization Address [facility]/ZIP Co de Phone Number [facility] [address] [place] [address] * (ABNORMAL) GLUCOSE - POINT OF CARE (10/15/2023 9:38 PM CDT) Glucose WB/POC 110(H) 70 - 106 mg/dL 10/16/2023 6:36 AM CDT [facility] Specimen Type Cap Fingerstick 2023 6:36 AM CDT [facility] Blood BLOOD SPECIMEN / Unknown 10/15/2023 9:38 PM CDT 10/16/2023 6:36 AM CDT Omi Fortune MD LAB - POINT OF CARE ORDERABLES Performing Organization Address City/[facility]/ZIP Co de Phone Number [facility] [address] [place] [address] * (ABNORMAL) GLUCOSE - POINT OF CARE (10/15/2023 3:58 PM CDT) Glucose WB/POC 125(H) 70 - 106 mg/dL 10/15/2023 4:33 PM CDT [facility] Specimen Type Cap Fingerstick 2023 4:33 PM CDT [facility] Blood BLOOD SPECIMEN / Unknown 10/15/2023 3:58 PM CDT 10/15/2023 4:33 PM CDT Omi Fortune MD LAB - POINT OF CARE ORDERABLES [facility] [address] [place] [id number] * XR CHEST 1VW PORTABLE (10/15/2023 2:45 PM CDT) Anatomical Region Laterality Modality Chest Radiographic Shama ging 10/15/2023 2:58 PM CDT Impressions 10/15/2023 2:59 PM CDT IMPRESSION: Limited study with possible mild interstitial edema. > Interpreting Provider: Abdulkadir Carrion MD on 10/15/2023 2:59 PM Narrative 10/15/2023 2:59 PM CDT PROCEDURE: ??XR CHEST 1VW PORTABLE DATE/TIME OF EXAM: ??10/15/2023 2:45 PM CLINICAL INFORMATION: None relevant/not provided if blank. Indication: J96.00: Acute respiratory failure, unspecified whether with hypoxia or hypercapnia (HCC) Additional History: COMPARISON: October 12, 2023 FINDINGS: Single frontal view of the chest demonstrates stable cardiomegaly with a normal mediastinal silhouette. The lung herrera are hypoaerated with resultant prominence of interstitial markings. Possible mild interstitial edema. Interval extubation and removal of right-sided central venous catheter and the gastric feeding tube. No focal consolidation, pleural effusion or pneumothorax. No acute osseous abnormalities. Procedure Note Abdulkadir Carrion MD - 10/15/2023 PROCEDURE: XR CHEST 1VW PORTABLE DATE/TIME OF EXAM: 10/15/2023 2:45 PM CLINICAL INFORMATION: None relevant/not provided if blank. Indication: J96.00: Acute respiratory failure, unspecified whether with hypoxia or hypercapnia (HCC) Additional History: COMPARISON: October 12, 2023 FINDINGS: Single frontal view of the chest demonstrates stable cardiomegaly with a normal mediastinal silhouette. The lung herrera are hypoaerated with resultant prominence of interstitial markings. Possible mildinterstitial edema. Interval extubation and removal of right-sided central venous catheter and the gastric feeding tube. No focal consolidation, pleural effusion or pneumothorax. No acute osseous abnormalities. IMPRESSION: Limited study with possible mild interstitial edema. > Interpreting Provider: Abdulkadir Carrion MD on 10/15/2023 2:59 PM Omi White Peter Fortune MD DIAGNOSTIC IMAGING ORDERABLES * CT FEMUR LEFT WO CONTRAST (10/15/2023 12:37 PM CDT) Anatomical Region Laterality Modality Lower Extremity Computed [...] Alberto Atwood MD on 10/15/2023 12:59 PM Braga Nathanaddy Fortune MD CT ORDERABL ES * (ABNORMAL) GLUCOSE - POINT OF CARE (10/15/2023 12:13 PM CDT) Glucose WB/POC 124(H) 70 - 106 mg/dL 10/15/2023 12:23 PM CDT [facility] Specimen Type Arterial 10/15/2023 12:23 PM CDT [facility] Blood BLOOD SPECIMEN / Unknown 10/15/2023 12:13 PM CDT 10/15/2023 12:23 PM CDT Omi Fortune MD LAB - POINT OF CARE ORDERABLES Performing Organization Address City/[facility]/ZIP Co de Phone Number [facility] [address] [place] [address] * (ABNORMAL) GLUCOSE - POINT OF CARE (10/15/2023 8:35 AM CDT) Pathologist [facility] Glucose WB/POC 130(H) 70 - 106 mg/dL 10/15/2023 8:45 AM CDT [facility] Specimen Type Arterial 10/15/2023 8:45 AM CDT [facility] Blood BLOOD SPECIMEN / Unknown 10/15/2023 8:35 AM CDT 10/15/2023 8:45 AM CDT Omi Fortune MD LAB - POINT OF CARE ORDERABLES Performing Organization Address [facility]/ZIP Co de Phone Number [facility] [address] [place] [address] * (ABNORMAL) SLIDE SCAN HEMATOLOGY (10/15/2023 4:44 AM CDT) Pathologist [facility] RBC Morphology REVIEWED 10/15/2023 7:14 AM CDT [facility] Polychromatic Cells MODERATE(A) (none) 10/15/2023 7:14 AM CDT [facility] Blood BLOOD SPECIMEN / Unknown Lab Venipuncture / Unknown 10/15/2023 4:44 AM CDT 10/15/2023 4:48 AM CDT Omi Fortune MD LAB - HEMAT OLOGY ORDERABLES [facility] [address] [place] [address] * (ABNORMAL) PHOSPHORUS BLOOD (10/15/2023 4:44 AM CDT) Pathologist [facility] Phosphorus 5.3(H) 2.3 - 4.7 mg/dL 10/15/2023 5:14 AM CDT [facility] Blood BLOOD SPECIMEN / Unknown Lab Venipuncture / Unknown 10/15/2023 4:44 AM CDT 10/15/2023 4:47 AM CDT Kalia Berry MD LAB - CHEMISTRY ROYCE KLINE Performing Organization Address [facility]/ZIP Co de Phone Number [facility] [address] [place] [address] * (ABNORMAL) CK BLOOD (10/15/2023 4:44 AM CDT) Pathologist [facility] CK 440(H) 30 - 200 U/L 10/15/2023 5:14 AM CDT [facility] Blood BLOOD SPECIMEN / Unknown Lab Venipuncture / Unknown 10/15/2023 4:44 AM CDT 10/15/2023 4:47 AM CDT Kalia Berry MD LAB - CHEMISTRY ROYCE KLINE Performing Organization Address [facility]/ZIP Co de Phone Number [facility] [address] [place] [address] * (ABNORMAL) CBC W AUTO DIFFERENTIAL (10/15/2023 4:44 AM CDT) [facility] WBC 25.4(H) 4.0 - 10.7 x10E9/L 10/15/2023 7:14 AM CDT [facility] RBC Count 3.90(L) 4.30 - 5.80 x10E12/L 10/15/2023 7:14 AM CDT [facility] Hemoglobin 12.1(L) 13.3 - 17.5 g/dL 10/15/2023 7:14 AM CDT [facility] Hematocrit 39.1 38.7 - 51.1 % 10/15/2023 7:14 AM [facility] MCV 100.3(H) 80.0 - 98.0 fL 10/15/2023 7:14 AM [facility] MCH 31.0 26.7 - 33.6 pg 10/15/2023 7:14 AM [facility] MCHC 30.9(L) 31.7 - 36.3 g/dL 10/15/2023 7:14 AM [facility] RDW-CV 15.7(H) 11.3 - 14.8 % 10/15/2023 7:14 AM [facility] Platelet Count 113(L) 150 - 420 x10E9/L 10/15/2023 7:14 AM [facility] MPV 12.9(H) 7.8 - 11.4 fL 10/15/2023 7:14 AM [facility] Neutrophil % 85.3(H) 41.0 - 74.0 % 10/15/2023 7:14 AM [facility] Lymphocyte % 2.3(L) 17.0 - 47.0 % 10/15/2023 7:14 AM [facility] Monocyte % 7.0 3.0 - 11.0 % 10/15/2023 7:14 AM [facility] Eosinophil % 0.2 0.0 - 7.0 % 10/15/2023 7:14 AM [facility] Basophil % 0.1 0.0 - 1.6 % 10/15/2023 7:14 AM [facility] Immature Granulocytes % 5.1(H) 0.0 - 1.0 % 10/15/2023 7:14 AM [facility] Neutrophil Absolute 21.65(H) 1.60 - 7.50 x10E9/L 10/15/2023 7:14 AM [facility] Lymphocyte Absolute 0.58(L) 1.00 - 4.40 x10E9/L 10/15/2023 7:14 AM [facility] Monocyte Absolute 1.78(H) 0.15 - 1.00 x10E9/L 10/15/2023 7:14 AM [facility] Eosinophil Absolute 0.04 0.00 - 0.60 x10E9/L 10/15/2023 7:14 AM [facility] Basophil Absolute 0.02 0.00 - 0.13 x10E9/L 10/15/2023 7:14 AM [facility] NRBC 0.9(H) <=0.0 /100 WBC 10/15/2023 7:14 AM [facility] Blood BLOOD SPECIMEN / Unknown Lab Venipuncture / Unknown 10/15/2023 4:44 AM CDT 10/15/2023 4:48 AM CDT Braga Christopher Fortune MD LAB - HEMAT OLOGY ORDERABLES [facility] [address] [facility] [place] [address] * (ABNORMAL) COMPREHENSIVE METABOLIC PANEL (10/15/2023 4:44 AM CDT) Glucose 115(H) 70 - 105 mg/dL 10/15/2023 5:14 AM [facility] Sodium 141 136 - 145 mmol/L 10/15/2023 5:14 AM [facility] Potassium 5.2(H) 3.5 - 5.1 mmol/L 10/15/2023 5:14 AM [facility] Chloride 108(H) 98 - 107 mmol/L 10/15/2023 5:14 AM [facility] CO2 24 22 - 29 mmol/L 10/15/2023 5:14 AM [facility] Calcium 9.0 8.4 - 10.4 mg/dL 10/15/2023 5:14 AM [facility] Anion Gap 9 6 - 16 mmol/L 10/15/2023 5:14 AM [facility] BUN 81(H) 7 - 26 mg/dL 10/15/2023 5:14 AM [facility] Creatinine 2.95(H) 0.72 - 1.25 mg/dL 10/15/2023 5:14 AM [facility] Alkaline Phosphatase 65 40 - 150 U/L 10/15/2023 5:14 AM [facility] ALT 44 0 - 55 U/L 10/15/2023 5:14 AM CDT [facility] AST 58(H) 5 - 34 U/L 10/15/2023 5:14 AM T [facility] Protein Total 7.6 6.4 - 8.3 gm/dL 10/15/2023 5:14 AM T [facility] Albumin 2.5(L) 3.4 - 5.0 gm/dL 10/15/2023 5:14 AM T [facility] Bilirubin Total 0.5 0.2 - 1.2 mg/dL 10/15/2023 5:14 AM T [facility] eGFR by CKD-EPI 22(L) >=90 mL/min/1.7 3 m2 10/15/2023 5:14 AM T [facility] Blood BLOOD SPECIMEN / Unknown Lab Venipuncture / Unknown 10/15/2023 4:44 AM CDT 10/15/2023 4:47 AM CDT Omi Fortune MD LAB - CHEMI STRY ORDERABLES Performing Organization Address City/[facility]/ZIP Co de Phone Number [facility] [address] [place] [address] * MAGNESIUM BLOOD (10/15/2023 4:44 AM CDT) Pathologist [facility] Magnesium 2.4 1.6 - 2.6 mg/dL 10/15/2023 5:14 AM CDT [facility] Blood BLOOD SPECIMEN / Unknown Lab Venipuncture / Unknown 10/15/2023 4:44 AM CDT 10/15/2023 4:47 AM CDT Omi Fortune MD LAB - CHEMI STRY ORDERABLES [facility] [address] [place] [address] * (ABNORMAL) GLUCOSE - POINT OF CARE (10/14/2023 9:06 PM CDT) Glucose WB/POC 137(H) 70 - 106 mg/dL 10/14/2023 11:36 PM CDT [facility] Specimen Type Cap Fingerstick 2023 11:36 PM CDT [facility] Blood BLOOD SPECIMEN / Unknown 10/14/2023 9:06 PM CDT 10/14/2023 11:36 PM CDT Omi Fortune MD LAB - POINT OF CARE ORDERABLES Performing Organization Address [facility]/ZIP Co de Phone Number [facility] [address] [place] [address] * (ABNORMAL) GLUCOSE - POINT OF CARE (10/14/2023 5:55 PM CDT) Glucose WB/POC 143(H) 70 - 106 mg/dL 10/14/2023 6:05 PM CDT [facility] Specimen Type Cap Fingerstick 2023 6:05 PM CDT [facility] Blood BLOOD SPECIMEN / Unknown 10/14/2023 5:55 PM CDT 10/14/2023 6:05 PM CDT Omi Fortune MD LAB - POINT OF CARE ORDERABLES Performing Organization Address [facility] Co de Phone Number [facility] [address] [place] [address] * (ABNORMAL) GLUCOSE - POINT OF CARE (10/14/2023 11:43 AM CDT) Glucose WB/POC 141(H) 70 - 106 mg/dL 10/14/2023 11:53 AM CDT [facility] Specimen Type Cap Fingerstick 2023 11:53 AM CDT [facility] Blood BLOOD SPECIMEN / Unknown 10/14/2023 11:43 AM CDT 10/14/2023 11:53 AM CDT Omi Fortune MD LAB - POINT OF CARE ORDERABLES Performing Organization Address City/[facility]/ZIP Co de Phone Number [facility] [address] [place] [address] * (ABNORMAL) GLUCOSE - POINT OF CARE (10/14/2023 6:54 AM CDT) Pathologist [facility] Glucose WB/POC 150(H) 70 - 106 mg/dL 10/14/2023 8:47 AM CDT [facility] Specimen Type Cap Fingerstick 2023 8:47 AM CDT [facility] Blood BLOOD SPECIMEN / Unknown 10/14/2023 6:54 AM CDT 10/14/2023 8:47 AM CDT Omi Fortune MD LAB - POINT OF CARE ORDERABLES [facility] [address] [place] [address] * (ABNORMAL) SLIDE SCAN HEMATOLOGY (10/14/2023 3:37 AM CDT) [facility] RBC Morphology REVIEWED 10/14/2023 6:42 AM CDT [facility] Macrocytosis MODERATE(A) (none) 10/14/2023 6:42 AM CDT [facility] Polychromatic Cells MODERATE(A) (none) 10/14/2023 6:42 AM CDT [facility] Blood BLOOD SPECIMEN / Unknown Venipuncture / Unknown 10/14/2023 3:37 AM CDT 10/14/2023 3:47 AM CDT Omi Fortune MD LAB - HEMAT OLOGY ORDERABLES [facility] [address] [place] [address] * (ABNORMAL) CK BLOOD (10/14/2023 3:37 AM CDT) Pathologist [facility] CK 786(H) 30 - 200 U/L 10/14/2023 4:05 AM CDT [facility] Blood BLOOD SPECIMEN / Unknown Venipuncture / Unknown 10/14/2023 3:37 AM CDT 10/14/2023 3:47 AM CDT Kalia Berry MD LAB - CHEMISTRY ROYCE KLINE Performing Organization Address [facility]/ZIP Co de Phone Number [facility] [address] [place] [address] * (ABNORMAL) PHOSPHORUS BLOOD (10/14/2023 3:37 AM CDT) Phosphorus 4.8(H) 2.3 - 4.7 mg/dL 10/14/2023 4:05 AM CDT [facility] Blood BLOOD SPECIMEN / Unknown Venipuncture / Unknown 10/14/2023 3:37 AM CDT 10/14/2023 3:47 AM CDT Halina Barraza MD LAB - CHEMISTRY ROYCE KLINE Performing Organization Address [facility] Co de Phone Number [facility] [address] [place] [address] * FOLATE (10/14/2023 3:37 AM CDT) Folate 12.4 7.0 - 31.4 ng/mL 10/14/2023 4:40 AM CDT [facility] Blood BLOOD SPECIMEN / Unknown Venipuncture / Unknown 10/14/2023 3:37 AM CDT 10/14/2023 3:47 AM CDT Halina Barraza MD LAB - CHEMISTRY ROYCE KLINE Performing Organization Address [facility]/ZIP Co de Phone Number [facility] [address] [place] [address] * (ABNORMAL) IRON + TRANSFERRIN PANEL (10/14/2023 3:37 AM CDT) Iron 20(L) 50 - 175 ug/dL 10/14/2023 4:05 AM CDT [facility] Transferrin 152(L) 174 - 382 mg/dL 10/14/2023 4:05 AM CDT [facility] TIBC Calculated 190(L) 240 - 450 ug/dL 10/14/2023 4:05 AM CDT [facility] Iron Saturation % 11(L) 20 - 50 % 10/14/2023 4:05 AM CDT [facility] Blood BLOOD SPECIMEN / Unknown Venipuncture / Unknown 10/14/2023 3:37 AM CDT 10/14/2023 3:47 AM CDT Halina Barraza MD LAB - CHEMISTRY ROYCE KLINE Performing Organization Address [facility] Co de Phone Number [facility] [address] [place] [address] * VANCOMYCIN LEVEL RANDOM (10/14/2023 3:37 AM CDT) Pathologist [facility] Vancomycin Random 19.7 <=40.0 ug/mL 10/14/2023 4:05 AM CDT [facility] Blood BLOOD SPECIMEN / Unknown Venipuncture / Unknown 10/14/2023 3:37 AM CDT 10/14/2023 3:47 AM CDT Narrative [facility] - 10/14/2023 4:05 AM CDT No reference range available for random Vancomycin levels. All results interpreted by ordering physician. Nas Mcnally MD LAB - CHEMISTRY ROYCE KLINE Performing Organization Address [facility] Co de Phone Number [facility] [address] [place] [address] * (ABNORMAL) CBC W AUTO DIFFERENTIAL (10/14/2023 3:37 AM CDT) Pathologist [facility] WBC 26.3(H) 4.0 - 10.7 x10E9/L 10/14/2023 6:42 AM CDT [facility] RBC Count 3.57(L) 4.30 - 5.80 x10E12/L 10/14/2023 6:42 AM CDT [facility] Hemoglobin 11.0(L) 13.3 - 17.5 g/dL 10/14/2023 6:42 AM CDT [facility] Hematocrit 35.0(L) 38.7 - 51.1 % 10/14/2023 6:42 AM CDT [facility] MCV 98.0 80.0 - 98.0 fL 10/14/2023 6:42 AM [facility] MCH 30.8 26.7 - 33.6 pg 10/14/2023 6:42 AM [facility] MCHC 31.4(L) 31.7 - 36.3 g/dL 10/14/2023 6:42 AM [facility] RDW-CV 15.7(H) 11.3 - 14.8 % 10/14/2023 6:42 AM [facility] Platelet Count 109(L) 150 - 420 x10E9/L 10/14/2023 6:42 AM [facility] MPV 13.1(H) 7.8 - 11.4 fL 10/14/2023 6:42 AM [facility] Neutrophil % 90.4(H) 41.0 - 74.0 % 10/14/2023 6:42 AM [facility] Lymphocyte % 1.8(L) 17.0 - 47.0 % 10/14/2023 6:42 AM [facility] Monocyte % 4.7 3.0 - 11.0 % 10/14/2023 6:42 AM [facility] Eosinophil % 0.2 0.0 - 7.0 % 10/14/2023 6:42 AM [facility] Basophil % 0.2 0.0 - 1.6 % 10/14/2023 6:42 AM [facility] Immature Granulocytes % 2.7(H) 0.0 - 1.0 % 10/14/2023 6:42 AM [facility] Neutrophil Absolute 23.72(H) 1.60 - 7.50 x10E9/L 10/14/2023 6:42 AM [facility] Lymphocyte Absolute 0.48(L) 1.00 - 4.40 x10E9/L 10/14/2023 6:42 AM [facility] Monocyte Absolute 1.24(H) 0.15 - 1.00 x10E9/L 10/14/2023 6:42 AM [facility] Eosinophil Absolute 0.06 0.00 - 0.60 x10E9/L 10/14/2023 6:42 AM [facility] Basophil Absolute 0.05 0.00 - 0.13 x10E9/L 10/14/2023 6:42 AM [facility] Blood BLOOD SPECIMEN / Unknown Venipuncture / Unknown 10/14/2023 3:37 AM CDT 10/14/2023 3:47 AM CDT Bragania Fortune MD LAB - HEMAT OLOGY ORDERABLES [facility] [address] [facility] [address] * (ABNORMAL) COMPREHENSIVE METABOLIC PANEL (10/14/2023 3:37 AM T) Glucose 137(H) 70 - 105 mg/dL 10/14/2023 4:05 AM [facility] Sodium 138 136 - 145 mmol/L 10/14/2023 4:05 AM [facility] Potassium 4.9 3.5 - 5.1 mmol/L 10/14/2023 4:05 AM [facility] Chloride 105 98 - 107 mmol/L 10/14/2023 4:05 AM [facility] CO2 24 22 - 29 mmol/L 10/14/2023 4:05 AM [facility] Calcium 8.8 8.4 - 10.4 mg/dL 10/14/2023 4:05 AM [facility] Anion Gap 9 6 - 16 mmol/L 10/14/2023 4:05 AM [facility] BUN 72(H) 7 - 26 mg/dL 10/14/2023 4:05 AM [facility] Creatinine 2.96(H) 0.72 - 1.25 mg/dL 10/14/2023 4:05 AM [facility] Alkaline Phosphatase 55 40 - 150 U/L 10/14/2023 4:05 AM [facility] ALT 41 0 - 55 U/L 10/14/2023 4:05 AM [facility] AST 90(H) 5 - 34 U/L 10/14/2023 4:05 AM [facility] Protein Total 7.5 6.4 - 8.3 gm/dL 10/14/2023 4:05 AM CDT [facility] Albumin 2.4(L) 3.4 - 5.0 gm/dL 10/14/2023 4:05 AM CDT [facility] Bilirubin Total 0.6 0.2 - 1.2 mg/dL 10/14/2023 4:05 AM CDT [facility] eGFR by CKD-EPI 21(L) >=90 mL/min/1.7 3 m2 10/14/2023 4:05 AM CDT [facility] Blood BLOOD SPECIMEN / Unknown Venipuncture / Unknown 10/14/2023 3:37 AM CDT 10/14/2023 3:47 AM CDT Omi Fortune MD LAB - CHEMI STRY ORDERABLES Performing Organization Address City/[facility]/ZIP Co de Phone Number [facility] [address] [place] [address] * MAGNESIUM BLOOD (10/14/2023 3:37 AM CDT) Magnesium 2.1 1.6 - 2.6 mg/dL 10/14/2023 4:05 AM CDT [facility] Blood BLOOD SPECIMEN / Unknown Venipuncture / Unknown 10/14/2023 3:37 AM CDT 10/14/2023 3:47 AM CDT Omi Fortune MD LAB - CHEMI STRY ORDERABLES [facility] [address] [place] [address] * (ABNORMAL) GLUCOSE - POINT OF CARE (10/13/2023 8:41 PM CDT) Glucose WB/POC 129(H) 70 - 106 mg/dL 10/14/2023 6:40 AM CDT [facility] Specimen Type Cap Fingerstick 2023 6:40 AM CDT [facility] Blood BLOOD SPECIMEN / Unknown 10/13/2023 8:41 PM CDT 10/14/2023 6:39 AM CDT Omi Fortune MD LAB - POINT OF CARE ORDERABLES Performing Organization Address City/[facility]/ZIP Co de Phone Number [facility] [address] [place] [address] * (ABNORMAL) GLUCOSE - POINT OF CARE (10/13/2023 4:04 PM CDT) [facility] Glucose WB/POC 160(H) 70 - 106 mg/dL 10/13/2023 4:24 PM CDT [facility] Specimen Type Cap Fingerstick 2023 4:24 PM CDT [facility] Blood BLOOD SPECIMEN / Unknown 10/13/2023 4:04 PM CDT 10/13/2023 4:24 PM CDT Omi Fortune MD LAB - POINT OF CARE ORDERABLES Performing Organization Address [facility]/ZIP Co de Phone Number [facility] [address] [place] [address] * (ABNORMAL) URINE MICROSCOPIC ONLY (10/13/2023 2:24 PM CDT) [facility] RBC UA >100(A) 0 - 5 # /hpf 10/13/2023 2:57 PM CDT [facility] WBC UA >100(A) 0 - 5 # /hpf 10/13/2023 2:57 PM CDT [facility] Bacteria UA None Seen None Seen 10/13/2023 2:57 PM CDT [facility] Squamous Epithelial Cells 3-5 0 - 5 /hpf 10/13/2023 2:57 PM CDT [facility] Urine URINE SPECIMEN OBTAINED VIA [employer] [facility] / Unknown Collection / Unknown 10/13/2023 2:24 PM CDT 10/13/2023 2:31 PM CDT Narrative [facility] - 10/13/2023 2:57 PM CDT Kalia Berry MD LAB - URINALYSIS ORD ERABLES [facility] [address] [place] [address] * LYTES (NA K CL) URINE RANDOM PANEL (10/13/2023 2:24 PM CDT) Sodium Urine <20 mmol/L 10/13/2023 2:55 PM CDT [facility] Potassium Urine 69.3 mmol/L 10/13/2023 2:55 PM CDT [facility] Chloride Urine <20.0 mmol/L 10/13/2023 2:55 PM CDT [facility] Urine URINE SPECIMEN OBTAINED BY CLEAN CATCH PROCEDURE / Unknown Collection / Unknown 10/13/2023 2:24 PM CDT 10/13/2023 2:31 PM CDT Kalia Berry MD LAB - URINE CHEMISTR Y ORDERABLES Performing Organization Address [facility] de Phone Number [facility] [address] [place] [address] * (ABNORMAL) URINALYSIS REFLEX TO MICROSCOPIC NO CULTURE (10/13/2023 2:24 PM CDT) Color UA Celia(A) Straw, Yellow 10/13/2023 2:45 PM CDT [facility] Clarity UA Cloudy(A) Clear 10/13/2023 2:45 PM CDT [facility] Glucose UA Negative Negative 10/13/2023 2:45 PM CDT [facility] Bilirubin UA Negative Negative 10/13/2023 2:45 PM CDT [facility] Ketone UA Negative Negative 10/13/2023 2:45 PM CDT [facility] Specific [place] UA 1.028 1.005 - 1.030 10/13/2023 2:45 PM CDT [facility] Blood UA 3+(A) Negative 10/13/2023 2:45 PM CDT [facility] pH UA 5.0 5.0 - 8.0 pH 10/13/2023 2:45 PM CDT [facility] Protein UA 2+(A) Negative 10/13/2023 2:45 PM CDT [facility] Urobilinogen UA Negative Negative mg/dL 10/13/2023 2:45 PM CDT [facility] Nitrite UA Negative Negative 10/13/2023 2:45 PM CDT [facility] Leukocyte UA 2+(A) Negative 10/13/2023 2:45 PM CDT [facility] Urine Microscopy Urine microscopy to follow 10/13/2023 2:45 PM CDT [facility] Urine URINE SPECIMEN OBTAINED VIA [employer] [facility] / Unknown Collection / Unknown 10/13/2023 2:24 PM CDT 10/13/2023 2:31 PM CDT Narrative [facility] - 10/13/2023 2:45 PM CDT Kalia Berry MD LAB - URINALYSIS ORD ERABLES [facility] [address] [place] [address] * (ABNORMAL) CK BLOOD (10/13/2023 11:53 AM CDT) CK 905(H) 30 - 200 U/L 10/13/2023 12:15 PM CDT [facility] Blood BLOOD SPECIMEN / Unknown Venipuncture / Unknown 10/13/2023 11:53 AM CDT 10/13/2023 11:58 AM CDT Kalia Berry MD LAB - CHEMISTRY ORDE RABANGELIA [facility] [address] [place] [address] * (ABNORMAL) BASIC METABOLIC PANEL (CALCIUM TOTAL) (10/13/2023 11:53 AM CDT) Glucose 131(H) 70 - 105 mg/dL 10/13/2023 12:15 PM CDT [facility] Sodium 139 136 - 145 mmol/L 10/13/2023 12:15 PM CDT [facility] Potassium 5.1 3.5 - 5.1 mmol/L 10/13/2023 12:15 PM CDT [facility] Chloride 105 98 - 107 mmol/L 10/13/2023 12:15 PM CDT [facility] CO2 24 22 - 29 mmol/L 10/13/2023 12:15 PM T [facility] Calcium 8.6 8.4 - 10.4 mg/dL 10/13/2023 12:15 PM [facility] Anion Gap 10 6 - 16 mmol/L 10/13/2023 12:15 PM [facility] BUN 60(H) 7 - 26 mg/dL 10/13/2023 12:15 PM [facility] Creatinine 3.01(H) 0.72 - 1.25 mg/dL 10/13/2023 12:15 PM [facility] eGFR by CKD-EPI 21(L) >=90 mL/min/1.7 3 m2 10/13/2023 12:15 PM [facility] Blood BLOOD SPECIMEN / Unknown Venipuncture / Unknown 10/13/2023 11:53 AM CDT 10/13/2023 11:58 AM CDT Halina Barraza MD LAB - CHEMISTRY ROYCE KLINE [facility] [address] [place] [id number] * (ABNORMAL) GLUCOSE - POINT OF CARE (10/13/2023 11:44 AM CDT) Glucose WB/POC 144(H) 70 - 106 mg/dL 10/13/2023 11:53 AM CDT [facility] Specimen Type Cap Fingerstick 2023 11:53 AM T [facility] Blood BLOOD SPECIMEN / Unknown 10/13/2023 11:44 AM CDT 10/13/2023 11:53 AM CDT Omi Fortune MD LAB - POINT OF CARE ORDERABLES [facility] [address] [place] [address] * (ABNORMAL) GLUCOSE - POINT OF CARE (10/13/2023 7:36 AM CDT) Glucose WB/POC 129(H) 70 - 106 mg/dL 10/13/2023 9:05 AM CDT [facility] Specimen Type Cap Fingerstick 2023 9:05 AM CDT [facility] Blood BLOOD SPECIMEN / Unknown 10/13/2023 7:36 AM CDT 10/13/2023 9:05 AM CDT Omi Fortune MD LAB - POINT OF CARE ORDERABLES [facility] [address] [place] [address] * (ABNORMAL) GLUCOSE - POINT OF CARE (10/13/2023 4:08 AM CDT) Glucose WB/POC 111(H) 70 - 106 mg/dL 10/13/2023 9:05 AM CDT [facility] Specimen Type Cap Fingerstick 2023 9:05 AM CDT [facility] Blood BLOOD SPECIMEN / Unknown 10/13/2023 4:08 AM CDT 10/13/2023 9:05 AM CDT Omi Fortune MD LAB - POINT OF CARE ORDERABLES Performing Organization Address [facility]/ZIP Co de Phone Number [facility] [address] [place] [address] * SLIDE SCAN HEMATOLOGY (10/13/2023 3:46 AM CDT) RBC Morphology NORMAL 10/13/2023 6:14 AM CDT [facility] Blood BLOOD SPECIMEN / Unknown Venipuncture / Unknown 10/13/2023 3:46 AM CDT 10/13/2023 3:55 AM CDT Omi Fortune MD LAB - HEMAT OLOGY ORDERABLES Performing Organization Address City/[facility]/ZIP Co de Phone Number [facility] [address] [place] [address] * (ABNORMAL) HEMOGLOBIN A1C (10/13/2023 3:46 AM CDT) Hemoglobin A1c 6.5(H) <5.7 % 10/13/2023 5:17 AM CDT [facility] Estimated Average Glucose 140 mg/dL 10/13/2023 5:17 AM CDT [facility] Blood BLOOD SPECIMEN / Unknown Venipuncture / Unknown 10/13/2023 3:46 AM CDT 10/13/2023 3:55 AM CDT [facility] - 10/13/2023 5:17 AM CDT HbA1c [...] (HbF) exceeds 5% in the specimen. The [employer] Alinity assay for the measurement of HbA1c is a National Glycohemoglobin Standardization Program (NGSP) certified method. Halina Barraza MD LAB - CHEMISTRY ROYCE KLINE [facility] Organization Address City/State/ZIP Co de Phone Number [facility] [address] [place] [address] * (ABNORMAL) CBC W AUTO DIFFERENTIAL (10/13/2023 3:46 AM CDT) Pathologist [facility] WBC 25.5(H) 4.0 - 10.7 x10E9/L 10/13/2023 6:14 AM CDT [facility] RBC Count 3.30(L) 4.30 - 5.80 x10E12/L 10/13/2023 6:14 AM [facility] Hemoglobin 10.2(L) 13.3 - 17.5 g/dL 10/13/2023 6:14 AM [facility] Hematocrit 32.9(L) 38.7 - 51.1 % 10/13/2023 6:14 AM [facility] MCV 99.7(H) 80.0 - 98.0 fL 10/13/2023 6:14 AM [facility] MCH 30.9 26.7 - 33.6 pg 10/13/2023 6:14 AM [facility] MCHC 31.0(L) 31.7 - 36.3 g/dL 10/13/2023 6:14 AM [facility] RDW-CV 15.8(H) 11.3 - 14.8 % 10/13/2023 6:14 AM [facility] Platelet Count 86(L) 150 - 420 x10E9/L 10/13/2023 6:14 AM [facility] MPV 13.2(H) 7.8 - 11.4 fL 10/13/2023 6:14 AM [facility] Neutrophil % 89.4(H) 41.0 - 74.0 % 10/13/2023 6:14 AM [facility] Lymphocyte % 1.5(L) 17.0 - 47.0 % 10/13/2023 6:14 AM [facility] Monocyte % 6.4 3.0 - 11.0 % 10/13/2023 6:14 AM [facility] Eosinophil % 0.9 0.0 - 7.0 % 10/13/2023 6:14 AM [facility] Basophil % 0.2 0.0 - 1.6 % 10/13/2023 6:14 AM [facility] Immature Granulocytes % 1.6(H) 0.0 - 1.0 % 10/13/2023 6:14 AM [facility] Neutrophil Absolute 22.80(H) 1.60 - 7.50 x10E9/L 10/13/2023 6:14 AM [facility] LABORATORY Lymphocyte Absolute 0.37(L) 1.00 - 4.40 x10E9/L 10/13/2023 6:14 AM CDT [facility] Monocyte Absolute 1.62(H) 0.15 - 1.00 x10E9/L 10/13/2023 6:14 AM CDT [facility] Eosinophil Absolute 0.24 0.00 - 0.60 x10E9/L 10/13/2023 6:14 AM T [facility] Basophil Absolute 0.06 0.00 - 0.13 x10E9/L 10/13/2023 6:14 AM [facility] Blood BLOOD SPECIMEN / Unknown Venipuncture / Unknown 10/13/2023 3:46 AM CDT 10/13/2023 3:55 AM CDT Braga Christopher Fortune MD LAB - HEMAT OLOGY ORDERABLES [facility] [address] [place] [address] * (ABNORMAL) COMPREHENSIVE METABOLIC PANEL (10/13/2023 3:46 AM CDT) Glucose 117(H) 70 - 105 mg/dL 10/13/2023 4:13 AM [facility] Sodium 136 136 - 145 mmol/L 10/13/2023 4:13 AM [facility] Potassium 5.9(H) 3.5 - 5.1 mmol/L 10/13/2023 4:13 AM [facility] Chloride 106 98 - 107 mmol/L 10/13/2023 4:13 AM [facility] CO2 18(L) 22 - 29 mmol/L 10/13/2023 4:13 AM [facility] Calcium 8.2(L) 8.4 - 10.4 mg/dL 10/13/2023 4:13 AM [facility] Anion Gap 12 6 - 16 mmol/L 10/13/2023 4:13 AM [facility] BUN 58(H) 7 - 26 mg/dL 10/13/2023 4:13 AM [facility] Creatinine 2.94(H) 0.72 - 1.25 mg/dL 10/13/2023 4:13 AM CDT [facility] Alkaline Phosphatase 48 40 - 150 U/L 10/13/2023 4:13 AM CDT [facility] ALT 20 0 - 55 U/L 10/13/2023 4:13 AM CDT [facility] AST 61(H) 5 - 34 U/L 10/13/2023 4:13 AM CDT [facility] Protein Total 7.2 6.4 - 8.3 gm/dL 10/13/2023 4:13 AM CDT [facility] Albumin 2.4(L) 3.4 - 5.0 gm/dL 10/13/2023 4:13 AM CDT [facility] Bilirubin Total 0.7 0.2 - 1.2 mg/dL 10/13/2023 4:13 AM CDT [facility] eGFR by CKD-EPI 22(L) >=90 mL/min/1.7 3 m2 10/13/2023 4:13 AM CDT [facility] Blood BLOOD SPECIMEN / Unknown Venipuncture / Unknown 10/13/2023 3:46 AM CDT 10/13/2023 3:55 AM CDT Omi Fortune MD LAB - CHEMI STRY ORDERABLES [facility] [address] [place] [address] * MAGNESIUM BLOOD (10/13/2023 3:46 AM CDT) Magnesium 1.8 1.6 - 2.6 mg/dL 10/13/2023 4:13 AM CDT [facility] Blood BLOOD SPECIMEN / Unknown Venipuncture / Unknown 10/13/2023 3:46 AM CDT 10/13/2023 3:55 AM CDT Omi Fortune MD LAB - CHEMI STRY ORDERABLES [facility] [address] [place] [address] * VANCOMYCIN LEVEL RANDOM (10/13/2023 3:46 AM CDT) Vancomycin Random 13.3 <=40.0 ug/mL 10/13/2023 4:13 AM CDT [facility] Blood BLOOD SPECIMEN / Unknown Venipuncture / Unknown 10/13/2023 3:46 AM CDT 10/13/2023 3:55 AM CDT Narrative [facility] - 10/13/2023 4:13 AM CDT No reference range available for random Vancomycin levels. All results interpreted by ordering physician. Nas Mcnally MD LAB - CHEMISTRY ROYCE KLINE [facility] [address] [place] [address] * GLUCOSE - POINT OF CARE (10/13/2023 12:12 AM CDT) Glucose WB/POC 98 70 - 106 mg/dL 10/13/2023 1:32 AM CDT [facility] Specimen Type Cap Fingerstick 2023 1:32 AM CDT [facility] Blood BLOOD SPECIMEN / Unknown 10/13/2023 12:12 AM CDT 10/13/2023 1:32 AM CDT Omi Fortune MD LAB - POINT OF CARE ORDERABLES [facility] [address] [place] [address] * (ABNORMAL) GLUCOSE - POINT OF CARE (10/12/2023 8:13 PM CDT) Glucose WB/POC 111(H) 70 - 106 mg/dL 10/13/2023 1:32 AM CDT [facility] Specimen Type Cap Fingerstick 2023 1:32 AM CDT [facility] Blood BLOOD SPECIMEN / Unknown 10/12/2023 8:13 PM CDT 10/13/2023 1:32 AM CDT Omi Fortune MD LAB - POINT OF CARE ORDERABLES Performing Organization Address City/[facility]/ZIP Co de Phone Number [facility] [address] [place] [address] * (ABNORMAL) GLUCOSE - POINT OF CARE (10/12/2023 4:04 PM CDT) Pathologist [facility] Glucose WB/POC 123(H) 70 - 106 mg/dL 10/12/2023 5:34 PM CDT [facility] Specimen Type Cap Fingerstick 2023 5:34 PM CDT [facility] Blood BLOOD SPECIMEN / Unknown 10/12/2023 4:04 PM CDT 10/12/2023 5:34 PM CDT Omi Fortune MD LAB - POINT OF CARE ORDERABLES Performing Organization Address [facility] Co de Phone Number [facility] [address] [place] [address] * (ABNORMAL) BLOOD GASES ART + COOX PANEL (10/12/2023 12:02 PM CDT) [facility] pH Arterial 7.34(L) 7.35 - 7.45 pH 10/12/2023 12:06 PM CDT [facility] pCO2 Arterial 40 35 - 45 mmHg 10/12/2023 12:06 PM CDT [facility] pO2 Arterial 108(H) 80 - 100 mmHg 10/12/2023 12:06 PM CDT [facility] HCO3 Arterial 21.6(L) 22.0 - 26.0 mmol/L 10/12/2023 12:06 PM CDT [facility] BE Arterial -3.9(L) -2.0 - 2.0 mmol/L 10/12/2023 12:06 PM CDT [facility] Oxyhemoglobin Arterial 97.4 % 10/12/2023 12:06 PM CDT [facility] Dexoyhemoglobin (HHB) % <1.0 % 10/12/2023 12:06 PM CDT [facility] O2 Content Arterial 16.9 Interpret within clinical context ml/dL 10/12/2023 12:06 PM T [facility] O2 Saturation Arterial 100 90 - 100 % 10/12/2023 12:06 PM T [facility] Methemoglobin <0.8 0.0 - 2.0 % 10/12/2023 12:06 PM T [facility] Carboxyhemoglobin 1.6 0.0 - 2.0 % 2023 12:06 PM T [facility] Hemoglobin by COOX 12.2 12.0 - 17.6 g/dL 10/12/2023 12:06 PM T [facility] Malik's Test Positive 10/12/2023 12:06 PM [facility]ERAPY Sample Site Right RA 10/12/2023 12:06 PM [facility] Mode Spontaneous 10/12/2023 12:06 PM [facility] FI O2 30.0 % 10/12/2023 12:06 PM T [facility] PEEP (cmH2O) 5 10/12/2023 12:06 PM [facility] Pressure Support (cmH2O) 10 10/12/2023 12:06 PM [facility] P/F Ratio 360 10/12/2023 12:06 PM [facility] Blood, arterial ARTERIAL BLOOD SPECIMEN / Unknown 10/12/2023 12:02 PM CDT 10/12/2023 12:02 PM CDT Halina Barraza MD LAB - BLOOD GASES OR DERABLES [facility] [address] [facility] [employer] IP [address] [phone] * (ABNORMAL) GLUCOSE - POINT OF CARE (10/12/2023 11:43 AM CDT) [facility] Glucose WB/POC 173(H) 70 - 106 mg/dL 10/12/2023 8:26 PM CDT [facility] Specimen Type Cap Fingerstick 2023 8:26 PM T [facility] Blood BLOOD SPECIMEN / Unknown 10/12/2023 11:43 AM CDT 10/12/2023 8:26 PM CDT Omi Fortune MD LAB - POINT OF CARE ORDERABLES Performing Organization Address [facility]/ZIP Co de Phone Number [facility] [address] [place] [address] * (ABNORMAL) LACTIC ACID BLOOD (10/12/2023 11:36 AM CDT) Lactic Acid 2.1(H) <=2 mmol/L 10/12/2023 12:01 PM CDT [facility] Blood BLOOD SPECIMEN / Unknown Venipuncture / Unknown 10/12/2023 11:36 AM CDT 10/12/2023 11:48 AM CDT Halina Barraza MD LAB - CHEMISTRY ROYCE KLINE Performing Organization Address [facility] Co de Phone Number [facility] [address] [place] [address] * (ABNORMAL) RENAL FUNCTION PANEL (10/12/2023 11:36 AM CDT) Glucose 173(H) 70 - 105 mg/dL 10/12/2023 12:03 PM [facility] Sodium 137 136 - 145 mmol/L 10/12/2023 12:03 PM [facility] Potassium 5.3(H) 3.5 - 5.1 mmol/L 10/12/2023 12:03 PM [facility] Chloride 107 98 - 107 mmol/L 10/12/2023 12:03 PM [facility] CO2 21(L) 22 - 29 mmol/L 10/12/2023 12:03 PM [facility] Calcium 8.4 8.4 - 10.4 mg/dL 10/12/2023 12:03 PM [facility] Anion Gap 9 6 - 16 mmol/L 10/12/2023 12:03 PM [facility] BUN 41(H) 7 - 26 mg/dL 10/12/2023 12:03 PM [facility] Creatinine 2.82(H) 0.72 - 1.25 mg/dL 10/12/2023 12:03 PM CDT [facility] Albumin 2.6(L) 3.4 - 5.0 gm/dL 10/12/2023 12:03 PM CDT [facility] Phosphorus 3.7 2.3 - 4.7 mg/dL 10/12/2023 12:03 PM CDT [facility] eGFR by CKD-EPI 23(L) >=90 mL/min/1.7 3 m2 10/12/2023 12:03 PM CDT [facility] Blood BLOOD SPECIMEN / Unknown Venipuncture / Unknown 10/12/2023 11:36 AM CDT 10/12/2023 11:48 AM CDT Halina Barraza MD LAB - CHEMISTRY ROYCE KLINE [facility] Organization Address City/State/ZIP Co de Phone Number [facility] [address] [facility] [employer] [place] [phone] * ECHO COMPLETE W CONTRAST (10/12/2023 11:00 [...] 3.0 cm [facility] FUJ [facility] PACS [id number] 6.792 cm [facility] FUJ I PACS [id number] 7.103 cm [facility] CV FUJ I PACS [...] intubated. Nas Mcnally MD [facility] * (ABNORMAL) C-REACTIVE PROTEIN (10/12/2023 10:28 AM CDT) Pathologist [facility] C-Reactive Protein 24.35(H) <=0.50 mg/dL 10/12/2023 11:03 AM CDT [facility] Blood BLOOD SPECIMEN / Unknown Venipuncture / Unknown 10/12/2023 10:28 AM CDT 10/12/2023 10:34 AM CDT Aneta Campbell DO LAB - CHEMISTRY O RDERABLES [facility] [address] [place] [address] * (ABNORMAL) CK BLOOD (10/12/2023 10:28 AM CDT) Pathologist [facility] CK 226(H) 30 - 200 U/L 10/12/2023 11:03 AM CDT [facility] Blood BLOOD SPECIMEN / Unknown Venipuncture / Unknown 10/12/2023 10:28 AM CDT 10/12/2023 10:34 AM CDT Aneta Quinterogala-Deylakosua DO LAB - CHEMISTRY O RDERABLES Performing Organization Address City/[facility]/ZIP Co de Phone Number [facility] [address] [place] [address] * LIPASE BLOOD (10/12/2023 10:28 AM CDT) Lipase 6 <60 U/L 10/12/2023 10:53 AM CDT [facility] Blood BLOOD SPECIMEN / Unknown Venipuncture / Unknown 10/12/2023 10:28 AM CDT 10/12/2023 10:34 AM CDT Aneta Quinteroarenjosee-Morganylakosua DO LAB - CHEMISTRY O RDERABLES Performing Organization Address [facility] Co de Phone Number [facility] [address] [place] [address] * CT FEMUR LEFT WO CONTRAST (10/12/2023 10:00 AM CDT) Anatomical Region Laterality Modality Lower Extremity Computed Tomogra phy 10/12/2023 11:0 1 AM CDT Impressions 10/12/2023 11:59 AM CDT IMPRESSION: There is a moderate cellulitis in the skin and subcutaneous soft tissues along the medial aspect of the left thigh. No gas is seen in the soft tissues. No drainable abscess collection is seen. No evidence for inflammatory change in the fascial planes of the left thigh. 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 > Interpreting Provider: Jose Alberto eKmp MD on 10/12/2023 11:59 AM Narrative 10/12/2023 11:59 AM CDT PROCEDURE: ??CT FEMUR LEFT WO CONTRAST DATE/TIME OF EXAM: ??10/12/2023 10:00 AM CLINICAL INFORMATION: None relevant/not provided if blank. Indication: A41.89: Other specified sepsis (HCC) Additional History: Pain and swelling in left thigh COMPARISON: None. TECHNIQUE: CT of the left femur was performed utilizing standard protocol. CT dose reduction technique was used, including Automated Exposure Control. FINDINGS: There is a small left knee joint effusion. Severe degenerative change is seen in all 3 compartments of the left knee. There is moderate edema in the skin and subcutaneous soft tissues along the medial aspect of the left thigh consistent with a moderate cellulitis. No gas is seen in the soft tissues. No inflammatory change is seen in the fascial planes between the muscles of the left thigh. There is no evidence for a drainable abscess. No swelling of the muscles in the left thigh is seen. There is a left total hip arthroplasty. No evidence for a hardware complication. Procedure Note Jose Alberto Kemp MD - 10/12/2023 PROCEDURE: CT FEMUR LEFT WO CONTRAST DATE/TIME OF EXAM: 10/12/2023 10:00 AM CLINICAL INFORMATION: None relevant/not provided if blank. Indication: A41.89: Other specified sepsis (HCC) Additional History: Pain and swelling in left thigh COMPARISON: None. TECHNIQUE: CT of the left femur was performed utilizing standard protocol. CT dose reduction technique was used, including Automated ExposureControl. FINDINGS: There is a small left knee joint effusion. Severe degenerative change is seen in all 3 compartments of the left knee. There is moderate edema in the skin and subcutaneous soft tissues alongthe medial aspect of the left thigh consistent with a moderate cellulitis.No gas is seen in the soft tissues. No inflammatory change is seen in the fascial planes between the muscles of the left thigh. There is noevidence for a drainable abscess. No swelling of the muscles in the left thigh is seen. There is a left total hip arthroplasty. No evidence for a hardware complication. IMPRESSION: There is a moderate cellulitis in the skin and subcutaneous soft tissues along the medial aspect of the left thigh. No gas is seen in the soft tissues. No drainable abscess collection is seen. No evidence for inflammatory change in the fascial planes of the left thigh. 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 > Interpreting Provider: Jose Alberto Kemp MD on 10/12/2023 11:59 AM Jody Montenegro Ruben [employer] CT ORDERABLES * CULTURE BLOOD (10/12/2023 8:52 AM CDT) Culture No growth day 5 UMESH 10/17/2023 9:30 AM CDT [facility] Blood PERIPHERAL BLOOD / Unknown Lab Venipuncture / Unknown 10/12/2023 8:52 AM CDT 10/12/2023 8:52 AM CDT Halina Barraza MD LAB - MICROBIOLOGY O RIO Performing Organization Address City/[facility]/ZIP Co de Phone Number [facility] [address] [place] [address], [facility] [phone] * CULTURE BLOOD (10/12/2023 8:52 AM CDT) Culture No growth day 5 UMESH 10/17/2023 9:30 AM CDT [facility] Blood PERIPHERAL BLOOD / Unknown Lab Venipuncture / Unknown 10/12/2023 8:52 AM CDT 10/12/2023 8:52 AM CDT Halina Barraza MD LAB - MICROBIOLOGY O RIO Performing Organization Address [facility]/[place] de Phone Number [facility] [address] [place] [address], [facility] [phone] * (ABNORMAL) BLOOD GASES ART + COOX PANEL (10/12/2023 8:37 AM CDT) pH Arterial 7.33(L) 7.35 - 7.45 pH 10/12/2023 8:42 AM CDT [facility] pCO2 Arterial 41 35 - 45 mmHg 8:42 AM CDT [facility] pO2 Arterial 114(H) 80 - 100 mmHg 10/12/2023 8:42 AM CDT [facility] HCO3 Arterial 21.6(L) 22.0 - 26.0 mmol/L 10/12/2023 8:42 AM CDT [facility] BE Arterial -4.1(L) -2.0 - 2.0 mmol/L 10/12/2023 8:42 AM CDT [facility] Oxyhemoglobin Arterial 97.2 % 10/12/2023 8:42 AM CDT [facility] Dexoyhemoglobin (HHB) % <1.0 % 10/12/2023 8:42 AM CDT [facility] O2 Content Arterial 17.4 Interpret within clinical context ml/dL 10/12/2023 8:42 AM CDT [facility] O2 Saturation Arterial 100 90 - 100 % 10/12/2023 8:42 AM CDT [facility] Methemoglobin <0.8 0.0 - 2.0 % 10/12/2023 8:42 AM CDT [facility] Carboxyhemoglobin 1.8 0.0 - 2.0 % 2023 8:42 AM CDT [facility] Hemoglobin by COOX 12.6 12.0 - 17.6 g/dL 10/12/2023 8:42 AM CDT [facility] Malik's Test Positive 10/12/2023 8:42 AM CDT [facility] Sample Site Left RA 10/12/2023 8:42 AM CDT [facility] Mode CMV 10/12/2023 8:42 AM CDT [facility] FI O2 35.0 % 10/12/2023 8:42 AM CDT [facility] Mechanical Tidal Volume (mL) 450 10/12/2023 8:42 AM CDT [facility] Mechanical Respiratory Rate (bpm) 24 10/12/2023 8:42 AM CDT [facility] PEEP (cmH2O) 5 10/12/2023 8:42 AM CDT [facility] P/F Ratio 326 10/12/2023 8:42 AM CDT [facility] Blood, arterial ARTERIAL BLOOD SPECIMEN / Unknown 10/12/2023 8:37 AM CDT 10/12/2023 8:37 AM CDT Halina Barraza MD LAB - BLOOD GASES OR DERABLES [facility] [address] [facility] [employer] IP [address] [phone] * XR CHEST 1VW PORTABLE (10/12/2023 5:55 AM CDT) Anatomical Region Laterality Modality Chest Radiographic Shama ging 10/12/2023 8:22 AM CDT Impressions 10/12/2023 8:23 AM CDT IMPRESSION: Tubes and lines in adequate position without a pneumothorax Oral and parenchymal change at the left base slightly progressive in the interval > Interpreting Provider: Alberto Atwood MD on 10/12/2023 8:23 AM Narrative 10/12/2023 8:23 AM CDT PROCEDURE: ??XR CHEST 1VW PORTABLE DATE/TIME OF EXAM: ??10/12/2023 5:55 AM INDICATION: J96.00: Acute respiratory failure, unspecified whether with hypoxia or hypercapnia (HCC) COMPARISON: May 01, 2019 ADDITIONAL CLINICAL INFORMATION (if provided): Ordering Provider Reason For Exam: Findings: There is an ET tube in the distal trachea less than 3 cm from the mattie. There is a right internal jugular catheter projecting over the superior vena cava and a nasogastric tube is seen entering the upper abdomen The heart is borderline enlarged. The aorta is normal in caliber. ??The patient is severely rotated to the left limiting detail. ??There is some mild pleural and parenchymal change left base and blunting of the left costophrenic sulcus ??There is no confluent infiltrate .. There is no pneumothorax. There is no mass or adenopathy.. Procedure Note Alberto Atwood MD - 10/12/2023 PROCEDURE: XR CHEST 1VW PORTABLE DATE/TIME OF EXAM: 10/12/2023 5:55 AM INDICATION: J96.00: Acute respiratory failure, unspecified whether with hypoxia or hypercapnia (HCC) COMPARISON: May 01, 2019 ADDITIONAL CLINICAL INFORMATION (if provided): Ordering Provider Reason For Exam: Findings: There is an ET tube in the distal trachea less than 3 cm from thecarina. There is a right internal jugular catheter projecting over the superior vena cava and a nasogastric tube is seen entering the upper abdomen The heart is borderline enlarged. The aorta is normal in caliber. Thepatient is severely rotated to the left limiting detail. There is some mild pleural and parenchymal change left base and blunting of the left costophrenic sulcus There is no confluent infiltrate .. There is no pneumothorax. There is no mass or adenopathy.. IMPRESSION: Tubes and lines in adequate position without a pneumothorax Oral and parenchymal change at the left base slightly progressive in the interval > Interpreting Provider: Alberto Atwood MD on 10/12/2023 8:23 AM Nas Mcnally MD DIAGNOSTIC IMAGING O RDERABLES * (ABNORMAL) BLOOD GASES ARTERIAL (10/12/2023 5:08 AM CDT) pH Arterial 7.29(L) 7.35 - 7.45 pH 10/12/2023 5:22 AM CDT [facility] pCO2 Arterial 50(H) 35 - 45 mmHg 10/12/2023 5:22 AM CDT [facility] pO2 Arterial 91 80 - 100 mmHg 10/12/2023 5:22 AM CDT [facility] HCO3 Arterial 24.0 22.0 - 26.0 mmol/L 10/12/2023 5:22 AM CDT [facility] BE Arterial -3.1(L) -2.0 - 2.0 mmol/L 10/12/2023 5:22 AM CDT [facility] O2 Saturation Arterial 98 90 - 100 % 10/12/2023 5:22 AM CDT [facility] Malik's Test Positive 10/12/2023 5:22 AM CDT [facility] Sample Site Right RA 10/12/2023 5:22 AM CDT [facility] FI O2 35.0 % 10/12/2023 5:22 AM CDT [facility] Mechanical Tidal Volume (mL) 450 10/12/2023 5:22 AM CDT [facility] Mechanical Respiratory Rate (bpm) 20 10/12/2023 5:22 AM CDT [facility] PEEP (cmH2O) 5 10/12/2023 5:22 AM CDT [facility] P/F Ratio 260 10/12/2023 5:22 AM CDT [facility] Blood, arterial ARTERIAL BLOOD SPECIMEN / Unknown 10/12/2023 5:08 AM CDT 10/12/2023 5:08 AM CDT Nas Mcnally MD LAB - BLOOD GASES OR DERABLES [facility] [address] [facility] [employer] [address] [phone] * (ABNORMAL) SLIDE SCAN HEMATOLOGY (10/12/2023 5:03 AM CDT) RBC Morphology REVIEWED 10/12/2023 6:58 AM CDT [facility] Large Platelets PRESENT(A) (none) 10/12/2023 6:58 AM CDT [facility] Blood BLOOD SPECIMEN / Unknown Lab Venipuncture / Unknown 10/12/2023 5:03 AM CDT 10/12/2023 5:13 AM CDT Nas Mcnally MD LAB - HEMATOLOGY ORD SP Performing Organization Address City/[facility]/ZIP Co de Phone Number [facility] [address] [place] [address] * PHOSPHORUS BLOOD (10/12/2023 5:03 AM CDT) Phosphorus 3.1 2.3 - 4.7 mg/dL 10/12/2023 5:34 AM CDT [facility] Blood BLOOD SPECIMEN / Unknown Lab Venipuncture / Unknown 10/12/2023 5:03 AM CDT 10/12/2023 5:13 AM CDT Nas Mcnally MD LAB - CHEMISTRY ROYCE KLINE Performing Organization Address [facility]/ZIP Co de Phone Number [facility] [address] [place] [address] * MAGNESIUM BLOOD (10/12/2023 5:03 AM CDT) Magnesium 1.6 1.6 - 2.6 mg/dL 10/12/2023 5:35 AM CDT [facility] Blood BLOOD SPECIMEN / Unknown Lab Venipuncture / Unknown 10/12/2023 5:03 AM CDT 10/12/2023 5:13 AM CDT Nas Mcnally MD LAB - CHEMISTRY ROYCE KLINE Performing Organization Address [facility]/ZIP Co de Phone Number [facility] [address] [place] [address] * (ABNORMAL) LACTIC ACID BLOOD (10/12/2023 5:03 AM CDT) Lactic Acid 2.6(H) <=2 mmol/L 10/12/2023 5:31 AM [facility] Blood BLOOD SPECIMEN / Unknown Lab Venipuncture / Unknown 10/12/2023 5:03 AM CDT 10/12/2023 5:12 AM CDT Nas Mcnally MD LAB - CHEMISTRY ROYCE KLINE [facility] [address] [place] [address] * (ABNORMAL) COMPREHENSIVE METABOLIC PANEL (10/12/2023 5:03 AM CDT) Pathologist [facility] Glucose 140(H) 70 - 105 mg/dL 10/12/2023 5:34 AM [facility] Sodium 139 136 - 145 mmol/L 10/12/2023 5:34 AM [facility] Potassium 5.4(H) 3.5 - 5.1 mmol/L 10/12/2023 5:34 AM [facility] Chloride 108(H) 98 - 107 mmol/L 10/12/2023 5:34 AM [facility] CO2 22 22 - 29 mmol/L 10/12/2023 5:34 AM [facility] Calcium 8.9 8.4 - 10.4 mg/dL 10/12/2023 5:34 AM [facility] Anion Gap 9 6 - 16 mmol/L 10/12/2023 5:34 AM [facility] BUN 38(H) 7 - 26 mg/dL 10/12/2023 5:34 AM [facility] Creatinine 2.70(H) 0.72 - 1.25 mg/dL 10/12/2023 5:34 AM [facility] Alkaline Phosphatase 64 40 - 150 U/L 10/12/2023 5:34 AM [facility] ALT 17 0 - 55 U/L 10/12/2023 5:34 AM [facility] AST 24 5 - 34 U/L 10/12/2023 5:34 AM [facility] Protein Total 6.7 6.4 - 8.3 gm/dL 10/12/2023 5:34 AM CDT [facility] Albumin 3.0(L) 3.4 - 5.0 gm/dL 10/12/2023 5:34 AM CDT [facility] Bilirubin Total 1.6(H) 0.2 - 1.2 mg/dL 10/12/2023 5:34 AM CDT [facility] eGFR by CKD-EPI 24(L) >=90 mL/min/1.7 3 m2 10/12/2023 5:34 AM CDT [facility] Blood BLOOD SPECIMEN / Unknown Lab Venipuncture / Unknown 10/12/2023 5:03 AM CDT 10/12/2023 5:13 AM CDT Nas Mcnally MD LAB - CHEMISTRY ROYCE KLINE [facility] Organization Address City/State/ZIP Co de Phone Number [facility] [address] [place] [address] * (ABNORMAL) COAGULATION PANEL W D-DIMER (10/12/2023 5:03 AM CDT) PT 15.6(H) 12.1 - 14.8 sec 10/12/2023 5:45 AM CDT [facility] INR 1.2(H) 0.9 - 1.1 10/12/2023 5:45 AM CDT [facility] PTT 32.6 23.0 - 38.4 sec 10/12/2023 5:45 AM CDT [facility] Fibrinogen 546(H) 200 - 400 mg/dL 10/12/2023 5:45 AM CDT [facility] D-Dimer 0.91(H) 0.27 - 0.50 ug/mL FEU 10/12/2023 5:45 AM CDT [facility] Platelet Count 113(L) 150 - 420 x10E9/L 10/12/2023 5:45 AM CDT [facility] Blood BLOOD SPECIMEN / Unknown Lab Venipuncture / Unknown 10/12/2023 5:03 AM CDT 10/12/2023 5:13 AM CDT Narrative [facility] - 10/12/2023 5:45 AM CDT Conventional [...] Mcnally MD LAB - COAGULATION OR DERABLES [facility] [address] [place] [id number] * (ABNORMAL) CBC W AUTO DIFFERENTIAL (10/12/2023 5:03 AM CDT) WBC 36.4(H) 4.0 - 10.7 x10E9/L 10/12/2023 6:58 AM [facility] RBC Count 4.22(L) 4.30 - 5.80 x10E12/L 10/12/2023 6:58 AM [facility] Hemoglobin 13.0(L) 13.3 - 17.5 g/dL 10/12/2023 6:58 AM [facility] Hematocrit 43.1 38.7 - 51.1 % 10/12/2023 6:58 AM [facility] MCV 102.1(H) 80.0 - 98.0 fL 10/12/2023 6:58 AM [facility] MCH 30.8 26.7 - 33.6 pg 10/12/2023 6:58 AM [facility] MCHC 30.2(L) 31.7 - 36.3 g/dL 10/12/2023 6:58 AM [facility] RDW-CV 15.6(H) 11.3 - 14.8 % 10/12/2023 6:58 AM [facility] Platelet Count 124(L) 150 - 420 x10E9/L 10/12/2023 6:58 AM [facility] MPV 12.9(H) 7.8 - 11.4 fL 10/12/2023 6:58 AM [facility] Neutrophil % 90.9(H) 41.0 - 74.0 % 10/12/2023 6:58 AM [facility] Lymphocyte % 2.1(L) 17.0 - 47.0 % 10/12/2023 6:58 AM [facility] Monocyte % 5.4 3.0 - 11.0 % 10/12/2023 6:58 AM [facility] Eosinophil % 0.0 0.0 - 7.0 % 10/12/2023 6:58 AM [facility] Basophil % 0.4 0.0 - 1.6 % 10/12/2023 6:58 AM [facility] Immature Granulocytes % 1.2(H) 0.0 - 1.0 % 10/12/2023 6:58 AM CDT [facility] Neutrophil Absolute 33.06(H) 1.60 - 7.50 x10E9/L 10/12/2023 6:58 AM CDT [facility] Lymphocyte Absolute 0.78(L) 1.00 - 4.40 x10E9/L 10/12/2023 6:58 AM CDT [facility] Monocyte Absolute 1.96(H) 0.15 - 1.00 x10E9/L 10/12/2023 6:58 AM CDT [facility] Eosinophil Absolute 0.00 0.00 - 0.60 x10E9/L 10/12/2023 6:58 AM CDT [facility] Basophil Absolute 0.14(H) 0.00 - 0.13 x10E9/L 10/12/2023 6:58 AM CDT [facility] Blood BLOOD SPECIMEN / Unknown Lab Venipuncture / Unknown 10/12/2023 5:03 AM CDT 10/12/2023 5:13 AM CDT Nas Mcnally MD LAB - HEMATOLOGY ORD ERABLES [facility] [address] [place] [phone] documented in this encounter Visit Diagnoses Diagnosis Acute respiratory failure, unspecified whether with hypoxia or hypercapnia (HCC)- Primary Hypoxemia Sepsis due to other etiology (HCC) Acute encephalopathy Encephalopathy, unspecified Oropharyngeal dysphagia Dysphagia, oropharyngeal phase Right elbow pain Pain in joint, upper arm Ambulatory dysfunction Sepsis due to other etiology (HCC) documented in this encounter Administered Medications Inactive Administered Medications - up to 3 most recent administrations Medication Order MAR Action Action Date Dose Rate Site 0.9% NaCl flush bag at 3 mL/hr, 250 mL, CONTINUOUS PRN, Starting on Tue10/14/23 at 0836, Until Tue11/03/23 at 1544, FLUSH BAG, Use for: IVPB flush $ New Bag/Syringe 10/14/2023 8:42 AM CDT 250 mL 3 mL/hr acetaminophen (Tylenol) tablet 1,000 mg 1,000 mg, Oral, EVERY 8 HOURS, First dose on Tue10/14/23 at 1400, Until Discontinued, Patient preference for lesser PRN pain meds may be honored when the patient requests a less strong medication, a lower dose, or a less intrusive route of administration when the lesser drug, dose and route have been ordered for the patient. This patient request must be documented in the MAR. If both oral and IV options are ordered for the same pain severity, give oral first unless patient cannot tolerate oral intake $ Given 10/18/2023 6:17 AM CDT 1,000 mg $ Given 10/17/2023 9:08 PM CDT 1,000 mg $ Given 10/17/2023 1:30 PM CDT 1,000 mg acetaminophen (Tylenol) tablet 1,000 mg 1,000 mg, Enteral Tube, EVERY 6 HOURS PRN, Mild Pain, Starting on Tue10/18/23 at 1430, Until 10/22/23 at 0829, Patient preference for lesser PRN pain meds may be honored when the patient requests a less strong medication, a lower dose, or a less intrusive route of administration when the lesser drug, dose and route have been ordered for the patient. This patient request must be documented in the MAR. If both oral and IV options are ordered for the same pain severity, give oral first unless patient cannot tolerate oral intake $ Given 10/21/2023 8:25 PM CDT 1,000 mg NG Tu be $ Given 10/21/2023 3:50 PM CDT 1,000 mg NG Tube $ Given 10/21/2023 9:01 AM CDT 1,000 mg NG Tube acetaminophen (Tylenol) tablet 1,000 mg 1,000 mg, Oral, EVERY 6 HOURS PRN, Mild Pain, Starting on 10/22/23 at 0829, Until Tue10/25/23 at 0753, Patient preference for lesser PRN pain meds may be honored when the patient requests a less strong medication, a lower dose, or a less intrusive route of administration when the lesser drug, dose and route have been ordered for the patient. This patient request must be documented in the MAR. If both oral and IV options are ordered for the same pain severity, give oral first unless patient cannot tolerate oral intake $ Given 10/23/2023 11:54 AM CDT 1,000 mg acetaminophen (Tylenol) tablet 650 mg 650 mg, Oral, EVERY 6 HOURS PRN, Mild Pain, Starting on Tue10/25/23 at 0753, Until Tue11/03/23 at 1544, Patient preference for lesser PRN pain meds may be honored when the patient requests a less strong medication, a lower dose, or a less intrusive route of administration when the lesser drug, dose and route have been ordered for the patient. This patient request must be documented in the MAR. If both oral and IV options are ordered for the same pain severity, give oral first unless patient cannot tolerate oral intake $ Given 10/26/2023 2:04 PM CDT 650 mg $ Given 10/26/2023 5:45 AM CDT 650 mg albuterol-ipratropium (Duo-Neb) nebulizer solution 3 mL 3 mL, Inhalation, EVERY 6 HOURS, First dose (after last modification) on Tue10/12/23 at 0900, Until Discontinued $ Given 10/30/2023 8:11 AM CDT 3 mL $ Given 10/30/2023 4:04 AM CDT 3 mL $ Given 10/29/2023 7:58 PM CDT 3 mL apixaban (Eliquis) tablet 5 mg 5 mg, Oral, 2 TIMES DAILY, First dose on Tue10/14/23 at 2100, Until Discontinued $ Given 10/17/2023 9:08 PM CDT 5 mg $ Given 10/16/2023 8:47 AM CDT 5 mg $ Given 10/15/2023 9:27 PM CDT 5 mg apixaban (Eliquis) tablet 5 mg 5 mg, Enteral Tube, 2 TIMES DAILY, First dose (after last modification) on Tue10/18/23 at 0900, Until Discontinued $ Given 10/21/2023 8:28 PM CDT 5 mg OG Tube $ Given 10/21/2023 9:01 AM CDT 5 mg NG Tube $ Given 10/20/2023 9:38 PM CDT 5 mg NG Tube apixaban (Eliquis) tablet 5 mg 5 mg, Oral, 2 TIMES DAILY, First dose (after last modification) on Tue10/22/23 at 0900, Until Discontinued $ Given 11/03/2023 8:42 AM CDT 5 mg $ Given 11/02/2023 10:45 PM CDT 5 mg $ Given 11/02/2023 8:34 AM CDT 5 mg artificial tears ophthalmic ointment Each Eye, EVERY 8 HOURS, First dose on Tue10/12/23 at 0600, Until Discontinued $ Given 10/12/2023 1:57 PM CDT $ Given 10/12/2023 6:04 AM CDT aspirin chew tablet 81 mg 81 mg, Enteral Tube, DAILY, First dose on Tue10/12/23 at 0900, Until Discontinued $ Given 10/21/2023 9:01 AM CDT 81 mg NG Tu be $ Given 10/20/2023 8:44 AM CDT 81 mg NG Tube $ Given 10/19/2023 8:24 AM CDT 81 mg NG Tube aspirin chew tablet 81 mg 81 mg, Oral, DAILY, First dose (after last modification) on Tue10/22/23 at 0900, Until Discontinued $ Given 10/31/2023 9:38 AM CDT 81 mg $ Given 10/30/2023 9:47 AM CDT 81 mg $ Given 10/29/2023 9:30 AM CDT 81 mg baclofen (Lioresal) tablet 10 mg 10 mg, Oral, 3 TIMES DAILY, First dose (after last modification) on Tue10/15/23 at 1145, Until Discontinued $ Given 10/16/2023 8:47 AM CDT 10 mg $ Given 10/15/2023 9:27 PM CDT 10 mg $ Given 10/15/2023 1:19 PM CDT 10 mg bisacodyl (Dulcolax) suppository 10 mg 10 mg, Rectal, DAILY PRN, Constipation, Starting on Tue10/17/23 at 1036, Until Tue11/03/23 at 1544, If Senokot is ineffective for constipation $ Given 10/17/2023 11:37 AM CDT 10 mg calcium gluconate 10 % injection 1 g 1 g, Intravenous, ONCE, 1 dose, On Tue10/17/23 at 0500, IV Push slowly over 3 to 5 minutes Administer prior to other medications for hyperkalemia. $ Given 10/17/2023 4:55 AM CDT 1 g cefepime (Maxipime) 2,000 mg in 0.9% NaCl IV 50 mL IVPB 2,000 mg (2 g), at 100 mL/hr, Intravenous, EVERY 12 HOURS, First dose on Tue10/12/23 at 0800, Until Discontinued, Indication for anti-infective therapy: Suspected infection, Site of anti-infective therapy: Skin/soft tissue $ New Bag/Syringe 10/12/2023 8:16 PM CDT 2,000 mg 100 mL/hr $ New Bag/Syringe 10/12/2023 8:53 AM CDT 2,000 mg 100 mL /hr cefTRIAXone (Rocephin) 2,000 mg in 0.9% NaCl IV 50 mL IVPB 2,000 mg (2 g), at 100 mL/hr, Intravenous, EVERY 24 HOURS, 12 doses, First dose on [place] 10/13/23 at 0900, Last dose on Tue10/24/23 at 0900, Ceftriaxone can cause precipitation when administered with calcium-containing fluids, including LR. Flush lines with a compatible fluid, such as D5W or NS before and after ceftriaxone dose. Admin through separate lumens is acceptable., Indication for anti-infective therapy: Documented infection, Site of anti-infective therapy: Blood $ New Bag/Syringe 10/24/2023 8:50 AM CDT 2,000 mg 100 mL/hr $ New Bag/Syringe 10/23/2023 8:21 AM CDT 2,000 mg 100 mL /hr $ New Bag/Syringe 10/22/2023 8:35 AM CDT 2,000 mg 100 mL /hr chlorhexidine (Peridex) 0.12 % oral solution 15 mL 15 mL, Mouth/Throat, 2 TIMES DAILY, First dose on Tue10/12/23 at 0900, Until Discontinued, Swab oral mucosa for 30 seconds. Do not brush teeth immediately after use. . WASTE DISPOSAL INSTRUCTIONS: Black Bin Disposal required. $ Given 10/12/2023 8:56 AM CDT 15 mL clindamycin (Cleocin) 900 mg in 50 mL D5W IVPB 900 mg, at 100 mL/hr, Intravenous, EVERY 8 HOURS, 8 doses, First dose on Tue10/12/23 at 0945, Last dose on Tue10/14/23 at 1745, Indication for anti-infective therapy: Documented infection, Site of anti-infective therapy: Skin/soft tissue $ New Bag/Syringe 10/14/2023 5:56 PM CDT 900 mg 100 mL/hr $ New Bag/Syringe 10/14/2023 9:31 AM CDT 900 mg 100 mL /hr $ New Bag/Syringe 10/14/2023 2:22 AM CDT 900 mg 100 mL /hr clindamycin (Cleocin) 900 mg in 50 mL D5W IVPB 900 mg, at 100 mL/hr, Intravenous, EVERY 8 HOURS, 11 doses, First dose on Tue10/15/23 at 1130, Last dose on Tue10/18/23 at 2200, Indication for anti-infective therapy: Documented infection, Site of anti-infective therapy: Skin/soft tissue $ New Bag/Syringe 10/18/2023 9:38 PM CDT 900 mg 100 mL/hr $ New Bag/Syringe 10/18/2023 1:12 PM CDT 900 mg 100 mL /hr $ New Bag/Syringe 10/18/2023 6:15 AM CDT 900 mg 100 mL /hr colchicine tablet 0.6 mg 0.6 mg, Oral, EVERY 4 HOURS, 2 doses, First dose on Tue10/27/23 at 1600, Last dose on Tue10/27/23 at 2000 $ Given 10/27/2023 8:41 PM CDT 0.6 mg $ Given 10/27/2023 3:04 PM CDT 0.6 mg dextrose 10 % IV bolus 12.5 g, at 468.75 mL/hr, Intravenous, PRN, Other, Bedside Glucose less than 70 mg/dL -If NOT able to eat and/or NPO and with IV Access, Starting on Tue10/12/23 at 1007, Until Tue11/03/23 at 1544, If NOT able to eat and/or NPO and with IV Access: For Bedside Glucose 54-69 mg/dL give 12.5 g Dextrose IV STAT For Bedside Glucose LESS than 54 mg/dl verify with a second Bedside Glucose (from a different site) and give 25 g Dextrose IV STAT Re-check and Re-treat blood glucose EVERY , 10-25 minutes until blood glucose GREATER than or equal to 80 mg/dl. NOTIFY PROVIDER OF HYPOGLYCEMIC EVENT. dextrose 10 % IV bolus 25 g, at 937.5 mL/hr, Intravenous, PRN, Other, Bedside Glucose less than 70 mg/dL -If NOT able to eat and/or NPO and with IV Access, Starting on Tue10/12/23 at 1007, Until Tue11/03/23 at 1544, If NOT able to eat and/or NPO and with IV Access: For Bedside Glucose 54-69 mg/dL - give 12.5 g Dextrose IV STAT For Bedside Glucose LESS than 54 mg/dl - verify with a second Bedside Glucose (from a different site) and give 25 g Dextrose IV STAT Re-check and Re-treat blood glucose EVERY - 10-25 minutes until blood glucose GREATER than or equal to 80 mg/dl. - If repeat bedside glucose 54-79 give 12.5 g Dextrose IV STAT NOTIFY PROVIDER OF HYPOGLYCEMIC EVENT. $ New Bag/Syringe 10/17/2023 6:47 AM CDT 25 g 937.5 mL/hr dextrose 10 % IV bolus 25 g, at 937.5 mL/hr, Intravenous, ONCE, 1 dose, On Tue10/17/23 at 0500 Restarted 10/17/2023 5:01 AM CDT 937.5 mL/hr $ New Bag/Syringe 10/17/2023 4:54 AM CDT 25 g 937.5 mL/hr dextrose 5 % infusion at 50 mL/hr, Intravenous, CONTINUOUS, Starting on Tue10/17/23 at 1630, Until 10/22/23 at 2257 Current Rate 10/22/2023 2:18 PM CDT 50 mL/hr Rate Change 10/22/2023 1:23 PM CDT 50 mL/hr $ New Bag/Syringe 10/22/2023 12:24 PM CDT 100 m L/hr docusate sodium (Colace) capsule 100 mg 100 mg, Oral, 2 TIMES DAILY, First dose on [place] 10/13/23 at 2100, Until Discontinued $ Given 10/20/2023 9:36 AM CDT 100 m g $ Given 10/19/2023 8:16 PM CDT 100 mg $ Given 10/19/2023 8:24 AM CDT 100 mg docusate sodium (Colace) capsule 100 mg 100 mg, Oral, 2 TIMES DAILY, First dose on 10/22/23 at 0900, Until Discontinued $ Given 10/27/2023 8:39 AM CDT 100 mg $ Given 10/25/2023 9:56 PM CDT 100 mg $ Given 10/25/2023 8:02 AM CDT 100 mg docusate sodium (Colace) solution 100 mg 100 mg, Enteral Tube, 2 TIMES DAILY, First dose on [place] 10/20/23 at 2100, Until Discontinued $ Given 10/21/2023 9:01 AM CDT 100 mg NG Tube $ Given 10/20/2023 9:38 PM CDT 100 mg NG Tube doxycycline monohydrate capsule 100 mg 100 mg, Oral, DAILY, First dose on [place] 10/20/23 at 0900, Until Discontinued, Administer at least 2 hours before or 4 hours after antacids, sucralfate, metals (eg, iron, zinc), multivitamin preparations, tube feeds Administer with 8 oz of water to prevent localized caustic injury. Flush thoroughly with water if administered by enteral tube., Indication for anti-infective therapy: Chronic prophylaxis $ Given 11/03/2023 8:42 AM CDT 100 mg $ Given 11/02/2023 8:34 AM CDT 100 mg $ Given 11/01/2023 9:22 AM CDT 100 mg DULoxetine (Cymbalta) capsule 30 mg 30 mg, Oral, DAILY, First dose on [facility] 10/13/23 at 1000, Until Discontinued, Capsules can be opened and sprinkled on food/mixed with liquids and should be used within 2 hrs (Do not crush pellets inside capsule) Whole capsules should be swallowed whole and not chewed $ Given 10/14/2023 8:46 AM CDT 30 mg $ Given 10/13/2023 9:56 AM CDT 30 mg furosemide (Lasix) injection 20 mg 20 mg, Intravenous, ONCE, 1 dose, On 10/31/23 at 1245 $ Given 10/31/2023 2:20 PM CDT 20 mg furosemide (Lasix) injection 40 mg 40 mg, Intravenous, ONCE, 1 dose, On 10/15/23 at 1445 $ Given 10/15/2023 2:33 PM CDT 40 mg furosemide (Lasix) injection 40 mg 40 mg, Intravenous, 2 TIMES DAILY, First dose on Tue10/16/23 at 1715, Until Discontinued $ Given 10/17/2023 8:37 AM CDT 40 mg $ Given 10/16/2023 4:41 PM CDT 40 mg furosemide (Lasix) injection 40 mg 40 mg, Intravenous, ONCE, 1 dose, On 10/17/23 at 1015 $ Given 10/17/2023 10:11 AM CDT 40 mg gabapentin (Neurontin) oral solution 100 mg 100 mg, Oral, AT BEDTIME, First dose on Tue10/13/23 at 2100, Until Discontinued $ Given 10/13/2023 8:39 PM CDT 100 m g gabapentin (Neurontin) oral solution 200 mg 200 mg, Oral, AT BEDTIME, First dose (after last modification) on Tue10/12/23 at 2215, Until Discontinued $ Given 10/12/2023 10:47 PM CDT 200 mg gabapentin (Neurontin) oral solution 300 mg 300 mg, Oral, 3 TIMES DAILY, First dose (after last modification) on [facility] 10/15/23 at 1400, Until Discontinued $ Given 10/16/2023 8:47 AM CDT 300 mg $ Given 10/15/2023 9:41 PM CDT 300 mg $ Given 10/15/2023 2:08 PM CDT 300 mg glucagon (Glucagen) injection 1 mg 1 mg, Subcutaneous, PRN, Bedside Glucose less than 70 mg/dL - If NOT able to eat and/or NPO and withOUT IV Access, Starting on Tue10/12/23 at 1007, Until [place] 11/03/23 at 1544, If NOT able to eat and/or NPO and NO IV Access: For Bedside glucose 54-69 mg/dL ? - Give 1 mg subcutaneous For Bedside Glucose LESS than 54 mg/dl ? -?verify with a second bedside glucose (from a different site) ? -?Give 1 mg subcutaneous Re-check and Re-treat blood glucose EVERY 10-25 minutes until blood glucose GREATER than or equal to 80 mg/dl.? NOTIFY PROVIDER OF HYPOGLYCEMIC EVENT. Reconstitute vial with 1 mL of sterile water for injection for a final concentration of 1 mg/mL; shake vial gently; use immediately and discard unused portion glucose (Diabetic Use) oral gel Oral, PRN, Other, Bedside Glucose less than 70 mg/dL, Starting on Tue10/12/23 at 1007, Until [place] 11/03/23 at 1544, If able to take oral medications: For Bedside Glucose 54 - 69 mg/dL Give 15 grams of oral carbohydrates - 1 glucose gel (see MAR) If patient refuses glucose gel, then offer: - 4 ounces of fruit juice OR - 4 ounces non-diet soda OR - 8 ounces of fat-free milk For Bedside Glucose LESS than 54 mg/dL verify with a second Bedside Glucose (from a different site) - If pt is symptomatic, do not delay treatment - If accuracy of the POC glucose is in question, confirm glucose with a STAT laboratory test Give 30 grams of oral carbohydrates - 2 glucose gels (see MAR) If patient refuses glucose gel, then offer: - 8 ounces of fruit juice OR - 8 ounces non-diet soda OR - 16 ounces of fat-free milk Re-check and Re-treat blood glucose EVERY 10-25 minutes until blood glucose GREATER than or equal to 80 mg/dl. - If on recheck, bedside glucose 54-79 mg/dL - Give 15 grams of oral carbohydrates (see above for choices) NOTIFY PROVIDER OF HYPOGLYCEMIC EVENT. 1 tube delivers 15 grams dextrose/carbohydrates heparin injection 5,000 Units 5,000 Units, Subcutaneous, EVERY 8 HOURS, First dose on Tue10/12/23 at 0600, Until Discontinued $ Given 10/13/2023 5:06 AM CDT 5,000 Units Abdominal Tissue $ Given 10/12/2023 9:48 PM CDT 5,000 Units A bdominal Tissue $ Given 10/12/2023 1:56 PM CDT 5,000 Units A bdominal Tissue heparin injection 5,000 Units 5,000 Units, Subcutaneous, EVERY 8 HOURS, First dose on Tue10/14/23 at 0600, Until Discontinued $ Given 10/14/2023 1:30 PM CDT 5,000 Units Abdominal Tissue $ Given 10/14/2023 6:34 AM CDT 5,000 Units A bdominal Tissue HYDROcodone-acetaminophen ([place]) 5-325 MG tablet 1 tablet 1 tablet, Oral, EVERY 4 HOURS PRN, Moderate Pain, Starting on Tue10/25/23 at 0753, Until Tue10/25/23 at 1540, Patient preference for lesser PRN pain meds may be honored when the patient requests a less strong medication, a lower dose, or a less intrusive route of administration when the lesser drug, dose and route have been ordered for the patient. This patient request must be documented in the MAR. If both oral and IV options are ordered for the same pain severity, give oral first unless patient cannot tolerate oral intake $ Given 10/25/2023 9:49 AM CDT 1 tablet HYDROcodone-acetaminophen ([place]) 5-325 MG tablet 1 tablet 1 tablet, Oral, EVERY 8 HOURS PRN, Moderate Pain, Starting on 10/25/23 at 1545, Until 10/31/23 at 0900, Patient preference for lesser PRN pain meds may be honored when the patient requests a less strong medication, a lower dose, or a less intrusive route of administration when the lesser drug, dose and route have been ordered for the patient. This patient request must be documented in the MAR. If both oral and IV options are ordered for the same pain severity, give oral first unless patient cannot tolerate oral intake $ Given 10/31/2023 2:16 AM CDT 1 tablet $ Given 10/30/2023 7:48 PM CDT 1 tablet $ Given 10/30/2023 9:48 AM CDT 1 tablet HYDROcodone-acetaminophen ([place]) 7.5-325 MG tablet 1 tablet 1 tablet, Oral, EVERY 6 HOURS PRN, Moderate Pain, Severe Pain, Starting on 10/31/23 at 0900, Until [place] 11/03/23 at 1544, Patient preference for lesser PRN pain meds may be honored when the patient requests a less strong medication, a lower dose, or a less intrusive route of administration when the lesser drug, dose and route have been ordered for the patient. This patient request must be documented in the MAR. If both oral and IV options are ordered for the same pain severity, give oral first unless patient cannot tolerate oral intake $ Given 11/03/2023 12:00 PM CDT 1 tablet $ Given 11/03/2023 4:31 AM CDT 1 tablet $ Given 11/02/2023 10:44 PM CDT 1 tablet hydrocortisone sodium succinate PF (Solu-CORTEF) injection 100 mg 100 mg, Intravenous, EVERY 8 HOURS, First dose on Tue10/12/23 at 0600, Until Discontinued $ Given 10/13/2023 5:06 AM CDT 100 mg $ Given 10/12/2023 9:48 PM CDT 100 mg $ Given 10/12/2023 1:56 PM CDT 100 mg hydrocortisone sodium succinate PF (Solu-CORTEF) injection 50 mg 50 mg, Intravenous, EVERY 6 HOURS, First dose (after last modification) on [place] 10/13/23 at 1200, Until Discontinued $ Given 10/14/2023 5:22 AM CDT 50 mg $ Given 10/14/2023 12:57 AM CDT 50 mg $ Given 10/13/2023 5:08 PM CDT 50 mg hydrocortisone sodium succinate PF (Solu-CORTEF) injection 50 mg 50 mg, Intravenous, EVERY 12 HOURS, 3 doses, First dose (after last modification) on Tue10/14/23 at 2100, Last dose on 10/15/23 at 2100 $ Given 10/15/2023 9:27 PM CDT 50 mg $ Given 10/15/2023 8:23 AM CDT 50 mg $ Given 10/14/2023 9:00 PM CDT 50 mg HYDROmorphone (Dilaudid) injection 0.2 mg 0.2 mg, Intravenous, EVERY 3 HOURS PRN, Severe Pain, Starting on Tue10/14/23 at 1319, Until 10/15/23 at 1059, Patient preference for lesser PRN pain meds may be honored when the patient requests a less strong medication, a lower dose, or a less intrusive route of administration when the lesser drug, dose and route have been ordered for the patient. This patient request must be documented in the MAR. If both oral and IV options are ordered for the same pain severity, give oral first unless patient cannot tolerate oral intake $ Given 10/15/2023 3:08 A M CDT 0.2 mg $ Given 10/14/2023 8:59 PM CDT 0.2 mg $ Given 10/14/2023 1:30 PM CDT 0.2 mg hydrOXYzine HCl (Atarax) tablet 25 mg 25 mg, Oral, 4 TIMES DAILY PRN, Anxiety, Starting on Tue10/30/23 at 1259, Until [place] 11/03/23 at 1544 $ Given 10/31/2023 8:12 PM CDT 25 mg $ Given 10/30/2023 8:00 PM CDT 25 mg $ Given 10/30/2023 1:37 PM CDT 25 mg immune globulin (GAMUNEX-C) 10 % 40 g 40 g (rounded from 37.65 g = 0.5 g/kg ? 75.3 kg [place] weight), at 0-999 mL/hr, Intravenous, CONTINUOUS, Starting on [place] 10/13/23 at 1300, Until [place] 10/13/23 at 1859, Actual Weight for Rate calculation: Wt 111.1 kg (244 lb 14.9 oz) using 10% product, starting at 0.5 mg/kg/min. Instructions based on CrCl < 30 mL/min. Initiate IVIG at 33 mL/hr with VTBI: 16.67 mL for 30 minutes. If tolerated, increase rate to 67 mL/hr with VTBI: 33.33 mL for 30 min. If tolerated, increase rate to 133 mL/hr with VTBI: 66.66 mL for 30 min. If tolerated, increase rate to 267 mL/hr until contents completely infused. See IVIG Monitoring order in Nursing Communications for monitoring instructions. Do NOT infuse with concurrent fluids.?? IVIG should be infused alone. Rate Change 10/13/2023 2:28 PM CDT 2 67 mL/hr Rate Change 10/13/2023 1:56 PM CDT 133 mL/hr Rate Change 10/13/2023 1:25 PM CDT 67 mL/hr immune globulin (GAMUNEX-C) 10 % 75 g 75 g (rounded from 75.3 g = 1 g/kg ? 75.3 kg [place] weight), at 0-999 mL/hr, Intravenous, CONTINUOUS, Starting on Tue10/12/23 at 1145, Until Tue10/12/23 at 1744, Actual Weight for Rate calculation: Wt 111.1 kg (244 lb 14.9 oz) using 10% product, starting at 0.5 mg/kg/min. Instructions based on CrCl 30-39 mL/min. Initiate IVIG at 33 mL/hr with VTBI: 16.67 mL for 30 minutes. If tolerated, increase rate to 67 mL/hr with VTBI: 33.33 mL for 30 min. If tolerated, increase rate to 133 mL/hr with VTBI: 66.66 mL for 30 min. If tolerated, increase rate to 267 mL/hr with VTBI: 133.32 mL for 30 min. If tolerated, increase rate to 333 mL/hr until contents completely infused. See IVIG Monitoring order in [employer] for monitoring instructions. Do NOT infuse with concurrent fluids.?? IVIG should be infused alone. Rate Change 10/12/2023 3:14 PM CDT 333 mL/hr Rate Change 10/12/2023 2:25 PM CDT 267 mL/hr Rate Change 10/12/2023 1:54 PM CDT 133 mL/hr insulin aspart (NovoLOG) pen 0-12 Units 0-12 Units, Subcutaneous, EVERY 4 HOURS, First dose on Tue10/12/23 at 1200, Until Discontinued, Standard Dose: Correction Insulin BG (mg/dL) Corrective Action LESS than 70 follow Hypoglycemic guidelines, 70 -140 NO Correction insulin, 141-180 GIVE 2 units of insulin, 181-220 GIVE 4 units of insulin, 221-260 GIVE 6 units of insulin, 261-300 GIVE 8 units of insulin, 301-350 GIVE 10 units of insulin, Greater than 350 GIVE 12 units of insulin and notify physician. DO NOT HOLD if Patient is NPO. If patient has orders for Mealtime insulin combine and give at same time. $ Given 10/13/2023 11:44 AM CDT 2 Units Abdominal Tissue $ Given 10/12/2023 12:48 PM CDT 2 Units A bdominal Tissue insulin aspart (NovoLOG) pen 0-12 Units 0-12 Units, Subcutaneous, 4 TIMES DAILY - BEFORE MEALS AND AT BEDTIME, First dose (after last modification) on Tue10/13/23 at 1700, Until Discontinued, Standard Dose: Correction Insulin BG (mg/dL) Corrective Action LESS than 70 follow Hypoglycemic guidelines, 70 -140 NO Correction insulin, 141-180 GIVE 2 units of insulin, 181-220 GIVE 4 units of insulin, 221-260 GIVE 6 units of insulin, 261-300 GIVE 8 units of insulin, 301-350 GIVE 10 units of insulin, Greater than 350 GIVE 12 units of insulin and notify physician. DO NOT HOLD if Patient is NPO. If patient has orders for Mealtime insulin combine and give at same time. $ Given 10/27/2023 8:49 PM CDT 4 Units Righ t Arm $ Given 10/25/2023 9:59 PM CDT 2 Units Le ft Arm $ Given 10/25/2023 5:59 PM CDT 2 Units Le ft Arm insulin regular human (HumuLIN R; NovoLIN R) 100 UNIT/ML injection 5 Units 5 Units, Intravenous, ONCE, 1 dose, On Tue10/17/23 at 0500, Obtain current Blood Glucose if necessary . WASTE DISPOSAL INSTRUCTIONS: Black Bin Disposal required. $ Given 10/17/2023 5:20 AM CDT 5 Units insulin regular human (HumuLIN R; NovoLIN R) 100 UNIT/ML injection 5 Units 5 Units, Intravenous, ONCE, 1 dose, On Tue10/17/23 at 0545, Obtain current Blood Glucose if necessary . WASTE DISPOSAL INSTRUCTIONS: Black Bin Disposal required. $ Given 10/17/2023 5:20 AM CDT 5 Units iron sucrose (Venofer) 300 mg in 0.9% NaCl IV 285 mL IVPB 300 mg, at 190 mL/hr, Intravenous, DAILY, 3 doses, First dose on Tue10/14/23 at 0900, Last dose on Tue10/16/23 at 0900, Observe for signs and symptoms of hypersensitivity during and after iron sucrose administration for at least 30 minutes and until clinically stable following completion of each administration. $ New Bag/Syringe 10/16/2023 9:00 AM CDT 300 mg 190 mL/hr $ New Bag/Syringe 10/15/2023 9:40 AM CDT 300 mg 190 mL /hr $ New Bag/Syringe 10/14/2023 10:21 AM CDT 300 mg 190 m L/hr lactated ringers infusion at 50 mL/hr, Intravenous, CONTINUOUS, Starting on Tue10/12/23 at 0515, Until Tue10/12/23 at 0703 $ New Bag/Syringe 10/12/2023 6:00 AM CDT 50 mL/hr lactated ringers infusion at 50 mL/hr, Intravenous, CONTINUOUS, Starting on Tue10/13/23 at 1645, Until 10/15/23 at 1321 Current Rate 10/14/2023 6:40 AM CDT 50 mL/hr Restarted 10/14/2023 2:52 AM CDT 50 mL/hr Current Rate 10/14/2023 1:20 AM CDT 50 mL/hr lactobacillus (Lactinex) granules 1 packet 1 packet, Oral, 3 TIMES DAILY, First dose on Tue10/27/23 at 1430, Until Discontinued $ Given 11/03/2023 8:42 AM CDT 1 packet $ Given 11/02/2023 10:45 PM CDT 1 packet $ Given 11/02/2023 2:26 PM CDT 1 packet lactulose (Chronulac) solution 20 g 20 g, Oral, 4 TIMES DAILY, First dose on Tue10/17/23 at 1300, Until Discontinued $ Given 10/20/2023 12:34 PM CDT 20 g $ Given 10/20/2023 8:47 AM CDT 20 g $ Given 10/19/2023 8:15 PM CDT 20 g NG Tube levalbuterol (Xopenex) nebulizer solution 0.63 mg 0.63 mg, Inhalation, EVERY 6 HOURS, First dose on [facility] 10/30/23 at 1500, Until Discontinued $ Given 10/31/2023 8:32 AM CDT 0.63 mg $ Given 10/31/2023 2:10 AM CDT 0.63 mg $ Given 10/30/2023 7:34 PM CDT 0.63 mg levalbuterol (Xopenex) nebulizer solution 1.25 mg 1.25 mg, Inhalation, EVERY 6 HOURS, First dose (after last modification) on Tue10/31/23 at 1500, Until Discontinued $ Given 11/03/2023 9:27 AM CDT 1.25 mg $ Given 11/03/2023 3:02 AM CDT 1.25 mg $ Given 11/02/2023 8:38 PM CDT 1.25 mg lidocaine (Lidoderm) 5 % patch 1 patch 1 patch, Administer over 12 Hours, EVERY 24 HOURS, First dose on [facility] 10/22/23 at 1330, Until Discontinued, Apply to lower back and remove patch after a max of 12 hours of application within a 24 hour period. $ Applied 11/02/2023 2:27 PM CDT 1 patch Back $ Applied 11/01/2023 2:00 PM CDT 1 patch Ba ck $ Applied 10/31/2023 2:20 PM CDT 1 patch Ba ck losartan (Cozaar) tablet 25 mg 25 mg, Oral, DAILY, First dose on Tue10/31/23 at 1115, Until Discontinued $ Given 11/02/2023 8:34 AM CDT 25 mg $ Given 11/01/2023 9:28 AM CDT 25 mg $ Given 10/31/2023 11:44 AM CDT 25 mg magnesium sulfate 1 g in 100 mL bolus 1 g, at 100 mL/hr, Administer over 60 Minutes, Intravenous, ONCE, 1 dose, On [facility] 10/27/23 at 1030, Infuse at 1 gm/hr $ New Bag/Syringe 10/27/2023 1:08 PM CDT 1 g 100 mL/hr magnesium sulfate 1 g in 100 mL bolus 1 g, at 100 mL/hr, Administer over 60 Minutes, Intravenous, ONCE, 1 dose, On Tue11/02/23 at 0900, Infuse at 1 gm/hr $ New Bag/Syringe 11/02/2023 9:29 AM CDT 1 g 100 mL/hr magnesium sulfate 2 g in 50 mL bolus 2 g, at 25 mL/hr, Administer over 120 Minutes, Intravenous, ONCE, 1 dose, On Tue10/25/23 at 0930, Infuse at 1 gm/hr $ New Bag/Syringe 10/25/2023 9:56 AM CDT 2 g 25 mL/hr magnesium sulfate 2 g in 50 mL bolus 2 g, at 25 mL/hr, Administer over 120 Minutes, Intravenous, ONCE, 1 dose, On Tue10/26/23 at 0900, Infuse at 1 gm/hr $ New Bag/Syringe 10/26/2023 10:18 AM CDT 2 g 25 mL/hr magnesium sulfate 2 g in 50 mL bolus 2 g, at 25 mL/hr, Administer over 120 Minutes, Intravenous, ONCE, 1 dose, On Tue10/30/23 at 0915, Infuse at 1 gm/hr $ New Bag/Syringe 10/30/2023 9:47 AM CDT 2 g 25 mL/hr magnesium sulfate 2 g in 50 mL bolus 2 g, at 25 mL/hr, Administer over 120 Minutes, Intravenous, ONCE, 1 dose, On Tue11/01/23 at 0845, Infuse at 1 gm/hr $ New Bag/Syringe 11/01/2023 9:36 AM CDT 2 g 25 mL/hr methylPREDNISolone sod succ (SOLU-Medrol) injection 40 mg 40 mg, Intravenous, ONCE, 1 dose, On Tue10/27/23 at 1415 $ Given 10/27/2023 3:04 PM CDT 40 mg metoprolol succinate XL 24hr (Toprol XL) tablet 50 mg 50 mg, Oral, DAILY, First dose on Tue11/01/23 at 0900, Until Discontinued, May cut in half but do not crush or chew $ Given 11/03/2023 8:42 AM CDT 50 mg $ Given 11/02/2023 8:34 AM CDT 50 mg $ Given 11/01/2023 9:28 AM CDT 50 mg metoprolol tartrate IR (Lopressor) tablet 25 mg 25 mg, Oral, 2 TIMES DAILY, First dose on [place] 10/13/23 at 1000, Until Discontinued $ Given 10/17/2023 9:08 PM CDT 25 mg $ Given 10/16/2023 8:46 AM CDT 25 mg $ Given 10/15/2023 9:27 PM CDT 25 mg metoprolol tartrate IR (Lopressor) tablet 25 mg 25 mg, Enteral Tube, 2 TIMES DAILY, First dose (after last modification) on Tue10/18/23 at 0900, Until Discontinued $ Given 10/21/2023 8:28 PM CDT 25 mg OG Tu be $ Given 10/21/2023 9:01 AM CDT 25 mg NG Tube $ Given 10/20/2023 9:38 PM CDT 25 mg NG Tube metoprolol tartrate IR (Lopressor) tablet 25 mg 25 mg, Oral, 2 TIMES DAILY, First dose (after last modification) on 10/22/23 at 0900, Until Discontinued $ Given 10/31/2023 9:38 AM CDT 25 mg $ Given 10/30/2023 7:48 PM CDT 25 mg $ Given 10/30/2023 9:47 AM CDT 25 mg metroNIDAZOLE (Flagyl) 500 mg in 100 mL IVPB 500 mg, at 200 mL/hr, Intravenous, EVERY 8 HOURS, First dose on Tue10/12/23 at 1045, Until Discontinued, Controlled Room Temperature, Indication for anti-infective therapy: Documented infection, Site of anti-infective therapy: Wound $ New Bag/Syringe 10/13/2023 2:45 AM CDT 500 mg 200 mL/hr $ New Bag/Syringe 10/12/2023 5:57 PM CDT 500 mg 200 mL /hr $ New Bag/Syringe 10/12/2023 11:07 AM CDT 500 mg 200 m L/hr morphine injection 2 mg 2 mg, Intravenous, EVERY 4 HOURS PRN, Severe Pain, Moderate Pain, Starting on 10/22/23 at 0809, Until Tue10/25/23 at 1540, If oral route not available Patient preference for lesser PRN pain meds may be honored when the patient requests a less strong medication, a lower dose, or a less intrusive route of administration when the lesser drug, dose and route have been ordered for the patient. This patient request must be documented in the MAR. If both oral and IV options are ordered for the same pain severity, give oral first unless patient cannot tolerate oral intake $ Given 10/25/2023 12:34 PM CDT 2 mg $ Given 10/25/2023 8:00 AM CDT 2 mg $ Given 10/25/2023 2:25 AM CDT 2 mg morphine injection 2 mg 2 mg, Intravenous, ONCE, 1 dose, On Tue10/31/23 at 0030, Patient preference for lesser PRN pain meds may be honored when the patient requests a less strong medication, a lower dose, or a less intrusive route of administration when the lesser drug, dose and route have been ordered for the patient. This patient request must be documented in the MAR. If both oral and IV options are ordered for the same pain severity, give oral first unless patient cannot tolerate oral intake $ Given 10/31/2023 12:40 AM CDT 2 mg naloxone (Narcan) 4 mg in 0.9% NaCl IV 250 mL infusion 1 mg/hr (62.5 mL/hr), Intravenous, CONTINUOUS, Starting on Tue10/16/23 at 2345, Until Tue10/17/23 at 0949, Do not titrate. Contact prescriber for respiratory rate less than 10 breaths/min or patient distress. Contact prescriber if the patient is not responding to the current infusion rate for additional naloxone orders. $ New Bag/Syringe 10/17/2023 7:51 AM CDT 1 mg/hr 62.5 mL/hr Current Rate 10/17/2023 6:21 AM CDT 1 mg/hr 62.5 mL/hr $ New Bag/Syringe 10/17/2023 4:09 AM CDT 1 mg/hr 62.5 m L/hr naloxone (Narcan) injection 0.4 mg 0.4 mg, Intravenous, ONCE, 1 dose, On Tue10/16/23 at 2245 $ Given 10/16/2023 10:30 PM CDT 0.4 mg naloxone (Narcan) injection 0.4 mg 0.4 mg, Intravenous, ONCE, 1 dose, On Tue10/17/23 at 0315 $ Given 10/17/2023 3:37 AM CDT 0.4 mg norepinephrine (Levophed) 8 mg/250 ml D5 infusion premix ADS Med 1 dose, Starting on Tue10/12/23 at 0423, Until Tue10/12/23 at 0602, Created by cabinet override Central line required if infused longer than 48 hours or infusing multiple vasopressors norepinephrine (Levophed) 8 mg/250 ml D5 infusion premix 0-0.4 mcg/kg/min ? 111.1 kg (0-83.325 mL/hr, rounded to 0-83.33 mL/hr), Intravenous, CONTINUOUS, Starting on Tue10/12/23 at 0515, Until Tue10/12/23 at 1848, Central line required if infused longer than 48 hours or infusing multiple vasopressors, Titration Parameters: Standard Parameters, Indication: Hypotension, Initiate infusion at: 0.05 mcg/kg/min, Titrate infusion by: If current rate 0.01 to 0.1 mcg/kg/min, titrate by 0.01 mcg/kg/min. If current rate 0.11 to 0.3 mcg/kg/min, titrate by 0.02 mcg/kg/min. If current rate 0.31 mcg/kg/min to the max ordered dose, titrate by 0.05 mcg/kg/min., Titrate every: 1 minute, To maintain a: MAP greater than or equal to 65 mmHg, Notify physician if: MAP less than 65 mmHg despite max dose Rate Change 10/12/2023 12:32 PM CDT 0.01 mcg/kg/min 2.08 mL/hr $ New Bag/Syringe 10/12/2023 11:51 AM CDT 0.11 mcg/kg/min 22.91 mL/hr Rate Change 10/12/2023 11:49 AM CDT 0.11 mcg/kg/min 22.91 mL/hr ondansetron (disintegrating) (Zofran ODT) tablet 4 mg 4 mg, Oral, EVERY 6 HOURS PRN, Nausea/Vomiting, Starting on 10/31/23 at 0019, Until [place] 11/03/23 at 1544, Dissolved orally on tongue ondansetron (Zofran) injection 4 mg 4 mg, Intravenous, EVERY 4 HOURS PRN, Nausea/Vomiting, Starting on Tue10/13/23 at 1208, Until [place] 11/03/23 at 1544, Administer over 2 to 5 minutes. $ Given 10/22/2023 6:20 PM CDT 4 mg $ Given 10/14/2023 12:57 AM CDT 4 mg $ Given 10/13/2023 6:33 PM CDT 4 mg oxyCODONE (immediate release) (Roxicodone) tablet 20 mg 20 mg, Oral, EVERY 4 HOURS PRN, Severe Pain, Starting on 10/15/23 at 1102, Until 10/16/23 at 2235, Patient preference for lesser PRN pain meds may be honored when the patient requests a less strong medication, a lower dose, or a less intrusive route of administration when the lesser drug, dose and route have been ordered for the patient. This patient request must be documented in the MAR. If both oral and IV options are ordered for the same pain severity, give oral first unless patient cannot tolerate oral intake $ Given 10/16/2023 2:21 PM CDT 20 mg $ Given 10/16/2023 7:39 AM CDT 20 mg $ Given 10/15/2023 10:28 PM CDT 20 mg pantoprazole (Protonix) injection 40 mg 40 mg, Intravenous, DAILY, First dose on Tue10/12/23 at 0900, Until Discontinued, Dilute with 10ml normal saline and give appropriate amount iv push over 2 minutes. (4mg = 1ml) For every 40 mg of pantoprazole mix with 10 mL Normal Saline (final concentration = 4 mg/mL). Inject SLOWLY over 2 min. $ Given 10/13/2023 7:52 AM CDT 40 mg $ Given 10/12/2023 8:50 AM CDT 40 mg pantoprazole (Protonix) injection 40 mg 40 mg, Intravenous, DAILY, First dose on Tue10/21/23 at 0900, Until Discontinued, For every 40 mg of pantoprazole mix with 10 mL Normal Saline (final concentration = 4 mg/mL). Inject SLOWLY over 2 min. $ Given 10/23/2023 7:52 AM CDT 40 mg $ Given 10/22/2023 8:27 AM CDT 40 mg $ Given 10/21/2023 8:57 AM CDT 40 mg pantoprazole EC (Protonix) tablet 40 mg 40 mg, Oral, DAILY, First dose on Tue10/14/23 at 0900, Until Discontinued, Do not crush, chew, or cut in half. $ Given 10/20/2023 8:44 AM CDT 40 mg $ Given 10/19/2023 8:23 AM CDT 40 mg $ Given 10/16/2023 8:47 AM CDT 40 mg pantoprazole EC (Protonix) tablet 40 mg 40 mg, Oral, DAILY, First dose on Tue10/24/23 at 0900, Until Discontinued, Do not crush, chew, or cut in half. $ Given 11/03/2023 8:42 AM CDT 40 mg $ Given 11/02/2023 8:35 AM CDT 40 mg $ Given 11/01/2023 12:12 PM CDT 40 mg perflutren lipid microsphere (Definity) injection 1.5 mL 1.5 mL, Intravenous, INTRA-PROCEDURE ONCE, 1 dose, On Tue10/12/23 at 1100, Shake well before using. $ Given 10/12/2023 11:05 AM CDT 1.5 mL potassium - sodium phosphates (Phos-Nak) powder 1 packet 1 packet, Oral, 3 TIMES DAILY WITH MEALS, First dose on Tue10/20/23 at 0800, Until Discontinued, Mix contents of packet in 6 to 8 ounces of water and drink, may taste better if cold Contains Phos 8 mmol, K+ 7 mEq, Na 7 mEq per packet $ Given 10/20/2023 5:07 PM CDT 1 packet $ Given 10/20/2023 12:34 PM CDT 1 packet $ Given 10/20/2023 8:44 AM CDT 1 packet potassium chloride 20 mEq in 100 mL SW bolus 20 mEq, at 50 mL/hr, Administer over 2 Hours, Intravenous, ONCE, 1 dose, On Tue10/20/23 at 0500 $ New Bag/Syringe 10/20/2023 5:21 AM CDT 20 mEq 50 mL/hr potassium chloride 40 mEq in 270 mL bolus 40 mEq, at 67.5 mL/hr, Administer over 4 Hours, Intravenous, ONCE, 1 dose, On Tue10/20/23 at 1630 $ New Bag/Syringe 10/20/2023 5:07 PM CDT 40 mEq 67.5 mL/hr potassium chloride 40 mEq in 270 mL bolus 40 mEq, at 67.5 mL/hr, Administer over 4 Hours, Intravenous, ONCE, 1 dose, On Tue10/21/23 at 0845 $ New Bag/Syringe 10/21/2023 10:24 AM CDT 40 mEq 67.5 mL/hr potassium chloride ER (Klor-Con M) tablet 20 mEq 20 mEq, Oral, ONCE, 1 dose, On 10/23/23 at 0715, Do not crush or chew. $ Given 10/23/2023 7:52 AM CDT 20 mEq potassium chloride ER (Klor-Con M) tablet 40 mEq 40 mEq, Oral, ONCE, 1 dose, On 10/22/23 at 1745, Do not crush or chew. $ Given 10/22/2023 5:34 PM CDT 40 mEq potassium chloride ER (Klor-Con M) tablet 40 mEq 40 mEq, Oral, ONCE, 1 dose, On 10/24/23 at 0900, Do not crush or chew. $ Given 10/24/2023 8:54 AM CDT 40 mEq potassium phosphate 30 mmol in dextrose 5 % 260 mL bolus 30 mmol, at 43.33 mL/hr, Administer over 6 Hours, Intravenous, ONCE, 1 dose, On 10/22/23 at 0815, 3 mmol phosphate = 4.4 mEq potassium Current Rate 10/22/2023 2:18 PM CDT 43.33 mL/hr Current Rate 10/22/2023 12:32 PM CDT 43.33 mL/h r $ New Bag/Syringe 10/22/2023 9:23 AM CDT 30 mmol 43.33 mL/hr propofol (Diprivan) 1000 mg in 100 mL infusion ADS Med 1 dose, Starting on Tue10/12/23 at 0423, Until Tue10/12/23 at 0601, Created by cabinet override Vial and Tubing should be changed and/or discarded every 12 hours. propofol (Diprivan) infusion 0-50 mcg/kg/min ? 111.1 kg (0-33.33 mL/hr), Intravenous, CONTINUOUS, Starting on Tue10/12/23 at 0515, Until Tue10/12/23 at 1545, Above RASS goal: Assess and treat pain first if CPOT greater than 2. If agitation persists increase rate per order. At RASS goal and no change in 4 hours: Decrease rate per order. Below RASS goal (unarousable): Hold infusion until at goal RASS then restart at 50% previous rate. If significant hemodynamic changes notify physician for instructions. Notify physician for inability to reach goals despite maximal dosage. Note: The CPOT goal should be achieved first with the use of the ordered analgesic medication prior to targeting RASS goal with the sedative. Vial and Tubing should be changed and/or discarded every 12 hours., Titration Parameters: Standard Parameters, Indication: Sedation, Initiate infusion at: 5 mcg/kg/min, Titrate infusion by: 5 mcg/kg/min, Titrate every: 2 minutes, Notify physician if: Unachievable RASS goal despite max dose, Titration Priority: 1st Rate Change 10/12/2023 11:16 AM CDT 10 mcg/kg/min 6.67 mL/hr $ New Bag/Syringe 10/12/2023 6:01 AM CDT 15 mcg/kg/min 10 mL/hr rifAXIMin (Xifaxan) tablet 550 mg 550 mg, Oral, 2 TIMES DAILY, First dose on Tue10/17/23 at 1245, Until Discontinued $ Given 10/17/2023 9:08 PM CDT 550 mg $ Given 10/17/2023 1:31 PM CDT 550 mg rifAXIMin (Xifaxan) tablet 550 mg 550 mg, Enteral Tube, 2 TIMES DAILY, First dose (after last modification) on Tue10/18/23 at 0900, Until Discontinued $ Given 10/21/2023 8:28 PM CDT 550 mg OG Tu be $ Given 10/21/2023 9:01 AM CDT 550 mg NG Tube $ Given 10/20/2023 9:38 PM CDT 550 mg NG Tube rifAXIMin (Xifaxan) tablet 550 mg 550 mg, Oral, 2 TIMES DAILY, First dose (after last modification) on Tue10/22/23 at 0900, Until Discontinued $ Given 11/03/2023 8:42 AM CDT 550 mg $ Given 11/02/2023 10:45 PM CDT 550 mg $ Given 11/02/2023 8:34 AM CDT 550 mg senna (Senokot) tablet 8.6 mg 8.6 mg, Oral, 2 TIMES DAILY PRN, Constipation, Starting on Tue10/22/23 at 0829, Until [place] 5/30/24 at 1544 senna-docusate (Senokot-S) tablet 1 tablet 1 tablet, Oral, DAILY, First dose on Tue10/23/23 at 0900, Until Discontinued $ Given 10/23/2023 8:04 AM CDT 1 tablet senna-docusate (Senokot-S) tablet 1 tablet 1 tablet, Oral, EVERY 48 HOURS, First dose on Tue10/30/23 at 1500, Until Discontinued $ Given 11/01/2023 6:09 PM CDT 1 tablet sodium bicarbonate 8.4 % 75 mEq in 0.45% NaCl infusion (fluid) at 50 mL/hr, Intravenous, CONTINUOUS, Starting on Tue10/12/23 at 0745, Until Tue10/13/23 at 1604 $ New Bag/Syringe 10/13/2023 7:24 AM CDT 50 mL/hr $ New Bag/Syringe 10/12/2023 8:55 AM CDT 50 mL/ hr sodium bicarbonate 8.4 % injection 100 mEq 100 mEq, Intravenous, ONCE, 1 dose, On Tue10/13/23 at 0915 $ Given 10/13/2023 9:49 AM CDT 100 mEq sodium zirconium cyclosilicate (Lokelma) packet 10 g 10 g, Enteral Tube, Once, 1 dose, On Tue10/12/23 at 0700, Empty entire contents of the packet(s) into a glass with greater than or equal to 3 tablespoons (45 mL) of water. Stir well and drink immediately; if powder remains in the glass, add water, stir and drink immediately; repeat until no powder remains. Administer other oral meds at least 2 hours before or 2 hours after $ Given 10/12/2023 7:50 AM CDT 10 g OG Tube sodium zirconium cyclosilicate (Lokelma) packet 10 g 10 g, Oral, Once, 1 dose, On Tue10/13/23 at 0500, Empty entire contents of the packet(s) into a glass with greater than or equal to 3 tablespoons (45 mL) of water. Stir well and drink immediately; if powder remains in the glass, add water, stir and drink immediately; repeat until no powder remains. Administer other oral meds at least 2 hours before or 2 hours after $ Given 10/13/2023 5:47 AM CDT 10 g spironolactone (Aldactone) tablet 12.5 mg 12.5 mg, Oral, DAILY, First dose on Tue10/30/23 at 1015, Until Discontinued $ Given 11/02/2023 8:34 AM CDT 12.5 mg $ Given 11/01/2023 9:23 AM CDT 12.5 mg $ Given 10/31/2023 9:38 AM CDT 12.5 mg traMADol (Ultram) tablet 25 mg 25 mg, Oral, EVERY 6 HOURS PRN, Severe Pain, Starting on Tue10/13/23 at 0147, Until Tue10/14/23 at 1319, Patient preference for lesser PRN pain meds may be honored when the patient requests a less strong medication, a lower dose, or a less intrusive route of administration when the lesser drug, dose and route have been ordered for the patient. This patient request must be documented in the MAR. If both oral and IV options are ordered for the same pain severity, give oral first unless patient cannot tolerate oral intake $ Given 10/14/2023 12:17 PM CDT 25 mg $ Given 10/14/2023 12:55 AM CDT 25 mg $ Given 10/13/2023 3:43 PM CDT 25 mg vancomycin (Vancocin) 1,500 mg in 530 mL IVPB 1,500 mg, at 353.33 mL/hr, Intravenous, ONCE, 1 dose, On Tue10/12/23 at 0630, Notify pharmacy if vancomycin admin time is moved, missed, or delayed by more than 1 hour so future administration times and level times can be adjusted., Indication for anti-infective therapy: Suspected infection, Site of anti-infective therapy: Skin/soft tissue $ New Bag/Syringe 10/12/2023 6:36 AM CDT 1,500 mg 353.33 mL/hr vancomycin (Vancocin) 1,750 mg in 535 mL IVPB 1,750 mg, at 305.71 mL/hr, Intravenous, ONCE, 1 dose, On Tue10/13/23 at 0445, Notify pharmacy if vancomycin admin time is moved, missed, or delayed by more than 1 hour so future administration times and level times can be adjusted. Pharmacy to manage dosing regimen , Indication for anti-infective therapy: Suspected infection, Site of anti-infective therapy: Blood $ New Bag/Syringe 10/13/2023 5:05 AM CDT 1,750 mg 305.71 mL/hr vancomycin (Vancocin) 1,750 mg in 535 mL IVPB 1,750 mg, at 305.71 mL/hr, Intravenous, ONCE, 1 dose, On Tue10/14/23 at 0500, Notify pharmacy if vancomycin admin time is moved, missed, or delayed by more than 1 hour so future administration times and level times can be adjusted., Indication for anti-infective therapy: Suspected infection, Site of anti-infective therapy: Blood Current Rate 10/14/2023 6:40 AM CDT 305.71 mL/hr $ New Bag/Syringe 10/14/2023 5:22 AM CDT 1,750 mg 305.71 mL/hr venlafaxine (Effexor) tablet 37.5 mg 37.5 mg, Enteral Tube, DAILY, First dose on Tue10/21/23 at 0900, Until Discontinued $ Given 10/21/2023 9:01 AM CDT 37.5 mg NG Tu be venlafaxine (Effexor) tablet 37.5 mg 37.5 mg, Oral, DAILY, First dose (after last modification) on Tue10/22/23 at 0900, Until Discontinued $ Given 11/03/2023 8:42 AM CDT 37.5 mg $ Given 11/02/2023 8:34 AM CDT 37.5 mg $ Given 11/01/2023 9:23 AM CDT 37.5 mg venlafaxine XR 24hr (Effexor XR) capsule 37.5 mg 37.5 mg, Oral, DAILY WITH BREAKFAST, First dose on Tue10/15/23 at 0815, Until Discontinued $ Given 10/20/2023 8:44 AM CDT 37.5 mg $ Given 10/19/2023 8:23 AM CDT 37.5 mg $ Given 10/18/2023 8:15 AM CDT 37.5 mg documented in this encounter Active and Recently Administered Medications Times are shown in CDT. Scheduled Medication Order 11/01/2023 11/02/2023 11/03/2023 apixaban (Eliquis) tablet 5 mg 5 mg, Oral, 2 TIMES DAILY, First dose (after last modification) on 10/22/23 at 0900, Until Discontinued 0923 ($ Given - Provider: Helen Bailey RN)214 ($ Given - Provider: Maria Guadalupe Benedict, RN) 0834 ($ Given - Provider: Lonny Carrillo, DONTAE)224 ($ Given - Provider: Maria Guadalupe Benedict RN) 0842 ($ Given - Provider: Glendy Hope, RN) doxycycline monohydrate capsule 100 mg 100 mg, Oral, DAILY, First dose on [place] 10/20/23 at 0900, Until Discontinued, Administer at least 2 hours before or 4 hours after antacids, sucralfate, metals (eg, iron, zinc), multivitamin preparations, tube feeds Administer with 8 oz of water to prevent localized caustic injury. Flush thoroughly with water if administered by enteral tube., Indication for anti-infective therapy: Chronic prophylaxis 921 ($ Given - Provider: Helen Bailey RN) 0834 ($ Given - Provider: Lonny Carrillo, DONTAE) 0842 ($ Given - Provider: Glendy Hope, RN) insulin aspart (NovoLOG) pen 0-12 Units 0-12 Units, Subcutaneous, 4 TIMES DAILY - BEFORE MEALS AND AT BEDTIME, First dose (after last modification) on Kellen 10/13/23 at 1700, Until Discontinued, Standard Dose: Correction Insulin BG (mg/dL) Corrective Action LESS than 70 follow Hypoglycemic guidelines, 70 -140 NO Correction insulin, 141-180 GIVE 2 units of insulin, 181-220 GIVE 4 units of insulin, 221-260 GIVE 6 units of insulin, 261-300 GIVE 8 units of insulin, 301-350 GIVE 10 units of insulin, Greater than 350 GIVE 12 units of insulin and notify physician. DO NOT HOLD if Patient is NPO. If patient has orders for Mealtime insulin combine and give at same time. 0815 (Not Administered - Provider: Helen Bailey RN - Reason: Per Administration Instructions)1213 (Not Administered - Provider: Helen Bailey RN - Reason: Per Administration Instructions)1738 (Not Administered - Provider: Helen Bailey RN - Reason: Per Administration Instructions)2154 (Not Administered - Provider: Maria Guadalupe Benedict RN - Reason: Per Administration Instructions) 0841 (Not Administered - Provider: Lonny Carrillo RN - Reason: Per Administration Instructions)1154 (Not Administered - Provider: Lonny Carrillo RN - Reason: Per Administration Instructions)1735 (Not Administered - Provider: Lonny Carrillo RN - Reason: Per Administration Instructions)2245 (Not Administered - Provider: Maria Guadalupe Benedict RN - Reason: Per Administration Instructions) 0825 (Not Administered - Provider: Glendy Hope RN - Reason: Patient Condition)1208 (Not Administered - Provider: Glendy Hope RN - Reason: Patient Condition) lactobacillus (Lactinex) granules 1 packet 1 packet, Oral, 3 TIMES DAILY, First dose on Kellen 10/27/23 at 1430, Until Discontinued 0922 ($ Given - Provider: Helen Bailey, RN)1809 ($ Given - Provider: Helen Bailey, RN)2149 ($ Given - Provider: Maria Guadalupe Benedict RN) 0834 ($ Given - Provider: Lonny Carrillo RN)1426 ($ Given - Provider: Lonny Carrillo RN)2245 ($ Given - Provider: Maria Guadalupe Benedict RN) 0842 ($ Given - Provider: Glendy Hope RN)1413 (Not Administered - Provider: Glendy Hope RN - Reason: Refused-Patient) levalbuterol (Xopenex) nebulizer solution 1.25 mg 1.25 mg, Inhalation, EVERY 6 HOURS, First dose (after last modification) on Tue10/31/23 at 1500, Until Discontinued 0258 ($ Given - Provider: Ayaan Marquis RCP)0855 ($ Given - Provider: Sarahi Pena RCP)1348 ($ Given - Provider: Sarahi Pena RCP)2021 ($ Given - Provider: Alexia Casillas RCP) 0250 ($ Given - Provider: Marin Claudio RCP)1025 ($ Given - Provider: Cyndee Roberts RCP)1557 ($ Given - Provider: Cyndee Roberts RCP)2038 ($ Given - Provider: Christina Orta MANNEQUIN MOLDER) 0302 ($ Given - Provider: Christina Orta RCP)0927 ($ Given - Provider: Keyla Martinez) lidocaine (Lidoderm) 5 % patch 1 patch 1 patch, Administer over 12 Hours, EVERY 24 HOURS, First dose on Tue10/22/23 at 1330, Until Discontinued, Apply to lower back and remove patch after a max of 12 hours of application within a 24 hour period. 0234 (Removed - Provider: Rema Suero)1400 ($ Applied - Provider: Helen Bailey, DONTAE) 0200 (Removed - Provider: Maria Guadalupe Benedict RN)1427 ($ Applied - Provider: Lonny Carrillo, DONTAE) 0211 (Removed - Provider: Maria Guadalupe Benedict, RN)1330 (Due) losartan (Cozaar) tablet 25 mg 25 mg, Oral, DAILY, First dose on Tue10/31/23 at 1115, Until Discontinued 0928 ($ Given - Provider: Helen Bailey, DONTAE) 0834 ($ Given - Provider: Lonny Carrillo RN) 0825 (Not Administered - Provider: Glendy Hope RN - Reason: Patient Condition - Comment: creat high) magnesium sulfate 1 g in 100 mL bolus (COMPLETED) 1 g, at 100 mL/hr, Administer over 60 Minutes, Intravenous, ONCE, 1 dose, On Tue11/02/23 at 0900, Infuse at 1 gm/hr 0929 ($ New Bag/Syringe - Provider: Lonny Carrillo RN)1031 (Stopped - Provider: Lonny Carrillo RN) magnesium sulfate 2 g in 50 mL bolus (COMPLETED) 2 g, at 25 mL/hr, Administer over 120 Minutes, Intravenous, ONCE, 1 dose, On Tue11/01/23 at 0845, Infuse at 1 gm/hr 0936 ($ New Bag/Syringe - Provider: Helen Bailey RN)1136 (Stopped - Provider: Helen Bailey RN) metoprolol succinate XL 24hr (Toprol XL) tablet 50 mg 50 mg, Oral, DAILY, First dose on Tue11/01/23 at 0900, Until Discontinued, May cut in half but do not crush or chew 0928 ($ Given - Provider: Helen Bailey RN) 0834 ($ Given - Provider: Lonny Carrillo RN) 0842 ($ Given - Provider: Glendy Hope RN) pantoprazole EC (Protonix) tablet 40 mg 40 mg, Oral, DAILY, First dose on Tue10/24/23 at 0900, Until Discontinued, Do not crush, chew, or cut in half. 1212 ($ Given - Provider: Helen Bailey RN) 0835 ($ Given - Provider: Lonny Carrlilo, RN) 0842 ($ Given - Provider: Glendy Hope, DONTAE) rifAXIMin (Xifaxan) tablet 550 mg 550 mg, Oral, 2 TIMES DAILY, First dose (after last modification) on 10/22/23 at 0900, Until Discontinued 09 ($ Given - Provider: Helen Bailey, RN)2149 ($ Given - Provider: Maria Guadalupe Benedict RN) 0834 ($ Given - Provider: Lonny Carrillo, RN)2245 ($ Given - Provider: Maria Guadalupe Benedict, RN) 0842 ($ Given - Provider: Glendy Hope, DONTAE) senna-docusate (Senokot-S) tablet 1 tablet 1 tablet, Oral, EVERY 48 HOURS, First dose on 10/30/23 at 1500, Until Discontinued 180 ($ Given - Provider: Helen Bailey RN) 1413 (Not Administered - Provider: Glendy Hope RN - Reason: Patient Condition) spironolactone (Aldactone) tablet 12.5 mg 12.5 mg, Oral, DAILY, First dose on 10/30/23 at 1015, Until Discontinued 922 ($ Given - Provider: Helen Bailey RN) 0834 ($ Given - Provider: Lonny Carrillo, DONTAE) 0826 (Not Administered - Provider: Glendy Hope RN - Reason: Patient Condition - Comment: creat high) venlafaxine (Effexor) tablet 37.5 mg 37.5 mg, Oral, DAILY, First dose (after last modification) on 10/22/23 at 0900, Until Discontinued 09 ($ Given - Provider: Helen Bailey RN) 0834 ($ Given - Provider: Lonny Carrillo, RN) 0842 ($ Given - Provider: Glendy Hope RN) PRN Medication Order 11/01/2023 11/02/2023 11/03/2023 0.9% NaCl flush bag at 3 mL/hr, 250 mL, CONTINUOUS PRN, Starting on Tue10/14/23 at 0836, Until Tue11/03/23 at 1544, FLUSH BAG, Use for: IVPB flush acetaminophen (Tylenol) tablet 650 mg 650 mg, Oral, EVERY 6 HOURS PRN, Mild Pain, Starting on Tue10/25/23 at 0753, Until Tue11/03/23 at 1544, Patient preference for lesser PRN pain meds may be honored when the patient requests a less strong medication, a lower dose, or a less intrusive route of administration when the lesser drug, dose and route have been ordered for the patient. This patient request must be documented in the MAR. If both oral and IV options are ordered for the same pain severity, give oral first unless patient cannot tolerate oral intake bisacodyl (Dulcolax) suppository 10 mg 10 mg, Rectal, DAILY PRN, Constipation, Starting on Tue10/17/23 at 1036, Until Tue11/03/23 at 1544, If Senokot is ineffective for constipation dextrose 10 % IV bolus(Linked Group 1) 12.5 g, at 468.75 mL/hr, Intravenous, PRN, Other, Bedside Glucose less than 70 mg/dL -If NOT able to eat and/or NPO and with IV Access, Starting on Tue10/12/23 at 1007, Until Tue11/03/23 at 1544, If NOT able to eat and/or NPO and with IV Access: For Bedside Glucose 54-69 mg/dL give 12.5 g Dextrose IV STAT For Bedside Glucose LESS than 54 mg/dl verify with a second Bedside Glucose (from a different site) and give 25 g Dextrose IV STAT Re-check and Re-treat blood glucose EVERY , 10-25 minutes until blood glucose GREATER than or equal to 80 mg/dl. NOTIFY PROVIDER OF HYPOGLYCEMIC EVENT. dextrose 10 % IV bolus(Linked Group 1) 25 g, at 937.5 mL/hr, Intravenous, PRN, Other, Bedside Glucose less than 70 mg/dL -If NOT able to eat and/or NPO and with IV Access, Starting on Tue10/12/23 at 1007, Until Tue11/03/23 at 1544, If NOT able to eat and/or NPO and with IV Access: For Bedside Glucose 54-69 mg/dL - give 12.5 g Dextrose IV STAT For Bedside Glucose LESS than 54 mg/dl - verify with a second Bedside Glucose (from a different site) and give 25 g Dextrose IV STAT Re-check and Re-treat blood glucose EVERY - 10-25 minutes until blood glucose GREATER than or equal to 80 mg/dl. - If repeat bedside glucose 54-79 give 12.5 g Dextrose IV STAT NOTIFY PROVIDER OF HYPOGLYCEMIC EVENT. glucagon (Glucagen) injection 1 mg(Linked Group 1) 1 mg, Subcutaneous, PRN, Bedside Glucose less than 70 mg/dL - If NOT able to eat and/or NPO and withOUT IV Access, Starting on Tue10/12/23 at 1007, Until Kellen 11/03/23 at 1544, If NOT able to eat and/or NPO and NO IV Access: For Bedside glucose 54-69 mg/dL ? - Give 1 mg subcutaneous For Bedside Glucose LESS than 54 mg/dl ? -?verify with a second bedside glucose (from a different site) ? -?Give 1 mg subcutaneous Re-check and Re-treat blood glucose EVERY 10-25 minutes until blood glucose GREATER than or equal to 80 mg/dl.? NOTIFY PROVIDER OF HYPOGLYCEMIC EVENT. Reconstitute vial with 1 mL of sterile water for injection for a final concentration of 1 mg/mL; shake vial gently; use immediately and discard unused portion glucose (Diabetic Use) oral gel Oral, PRN, Other, Bedside Glucose less than 70 mg/dL, Starting on Tue10/12/23 at 1007, Until Kellen 11/03/23 at 1544, If able to take oral medications: For Bedside Glucose 54 - 69 mg/dL Give 15 grams of oral carbohydrates - 1 glucose gel (see MAR) If patient refuses glucose gel, then offer: - 4 ounces of fruit juice OR - 4 ounces non-diet soda OR - 8 ounces of fat-free milk For Bedside Glucose LESS than 54 mg/dL verify with a second Bedside Glucose (from a different site) - If pt is symptomatic, do not delay treatment - If accuracy of the POC glucose is in question, confirm glucose with a STAT laboratory test Give 30 grams of oral carbohydrates - 2 glucose gels (see MAR) If patient refuses glucose gel, then offer: - 8 ounces of fruit juice OR - 8 ounces non-diet soda OR - 16 ounces of fat-free milk Re-check and Re-treat blood glucose EVERY 10-25 minutes until blood glucose GREATER than or equal to 80 mg/dl. - If on recheck, bedside glucose 54-79 mg/dL - Give 15 grams of oral carbohydrates (see above for choices) NOTIFY PROVIDER OF HYPOGLYCEMIC EVENT. 1 tube delivers 15 grams dextrose/carbohydrates HYDROcodone-acetaminophen ([place]) 7.5-325 MG tablet 1 tablet 1 tablet, Oral, EVERY 6 HOURS PRN, Moderate Pain, Severe Pain, Starting on Tue10/31/23 at 0900, Until Kellen 11/03/23 at 1544, Patient preference for lesser PRN pain meds may be honored when the patient requests a less strong medication, a lower dose, or a less intrusive route of administration when the lesser drug, dose and route have been ordered for the patient. This patient request must be documented in the MAR. If both oral and IV options are ordered for the same pain severity, give oral first unless patient cannot tolerate oral intake 0004 ($ Given - Provider: Rema Suero)0558 ($ Given - Provider: Rema Suero)1212 ($ Given - Provider: Helen Bailey RN)1809 ($ Given - Provider: Helen Bailey, DONTAE) 0021 ($ Given - Provider: Maria Guadalupe Benedict RN)0835 ($ Given - Provider: Lonny Carrillo RN)2244 ($ Given - Provider: Maria Guadalupe Benedict RN) 0431 ($ Given - Provider: Maria Guadalupe Benedict RN)1200 ($ Given - Provider: Glendy Hope RN) hydrOXYzine HCl (Atarax) tablet 25 mg 25 mg, Oral, 4 TIMES DAILY PRN, Anxiety, Starting on 10/30/23 at 1259, Until Kellen 11/03/23 at 1544 ondansetron (disintegrating) (Zofran ODT) tablet 4 mg 4 mg, Oral, EVERY 6 HOURS PRN, Nausea/Vomiting, Starting on Tue10/31/23 at 0019, Until Kellen 11/03/23 at 1544, Dissolved orally on tongue ondansetron (Zofran) injection 4 mg 4 mg, Intravenous, EVERY 4 HOURS PRN, Nausea/Vomiting, Starting on Tue10/13/23 at 1208, Until Kellen 11/03/23 at 1544, Administer over 2 to 5 minutes. senna (Senokot) tablet 8.6 mg 8.6 mg, Oral, 2 TIMES DAILY PRN, Constipation, Starting on 10/22/23 at 0829, Until Kellen 11/03/23 at 1544 Linked Groups Order Group 1: dextrose 10 % IV bolusJump to med 12.5 g, at 468.75 mL/hr, Intravenous, PRN, Other, Bedside Glucose less than 70 mg/dL -If NOT able to eat and/or NPO and with IV Access, Starting on Tue10/12/23 at 1007, Until Kellen 11/03/23 at 1544, If NOT able to eat and/or NPO and with IV Access: For Bedside Glucose 54-69 mg/dL give 12.5 g Dextrose IV STAT For Bedside Glucose LESS than 54 mg/dl verify with a second Bedside Glucose (from a different site) and give 25 g Dextrose IV STAT Re-check and Re-treat blood glucose EVERY , 10-25 minutes until blood glucose GREATER than or equal to 80 mg/dl. NOTIFY PROVIDER OF HYPOGLYCEMIC EVENT. Or dextrose 10 % IV bolusJump to med 25 g, at 937.5 mL/hr, Intravenous, PRN, Other, Bedside Glucose less than 70 mg/dL -If NOT able to eat and/or NPO and with IV Access, Starting on Tue10/12/23 at 1007, Until Klelen 11/03/23 at 1544, If NOT able to eat and/or NPO and with IV Access: For Bedside Glucose 54-69 mg/dL - give 12.5 g Dextrose IV STAT For Bedside Glucose LESS than 54 mg/dl - verify with a second Bedside Glucose (from a different site) and give 25 g Dextrose IV STAT Re-check and Re-treat blood glucose EVERY - 10-25 minutes until blood glucose GREATER than or equal to 80 mg/dl. - If repeat bedside glucose 54- 79 give 12.5 g Dextrose IV STAT NOTIFY PROVIDER OF HYPOGLYCEMIC EVENT. Or glucagon (Glucagen) injection 1 mgJump to med 1 mg, Subcutaneous, PRN, Bedside Glucose less than 70 mg/dL - If NOT able to eat and/or NPO and withOUT IV Access, Starting on Tue10/12/23 at 1007, Until Kellen 11/03/23 at 1544, If NOT able to eat and/or NPO and NO IV Access: For Bedside glucose 54- 69 mg/dL ? - Give 1 mg subcutaneous For Bedside Glucose LESS than 54 mg/dl ? -?verify with a second bedside glucose (from a different site) ? -?Give 1 mg subcutaneous Re-check and Re-treat blood glucose EVERY 10-25 minutes until blood glucose GREATER than or equal to 80 mg/dl.? NOTIFY PROVIDER OF HYPOGLYCEMIC EVENT. 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
--- OUTSIDE RECORDS SUMMARY | 2024-05-24 23:33 | XMS_ITS | Encounter Summary ---
Author Organization [facility] Address [address] [place] [address] Care Team Providers Care Ceramics Artist Name Role Phone Unknown, Provider Primary Care Provider Unavaila ble Encounter Details Date Type Department Care Team (Late st Contact Info) Description 05/10/2023 Patient Outreach [facility] [address] [place] [address] Wendy Cotton RN Social History Tobacco Use Types Packs/Day Years [...] No 10/07/2022 documented as of this encounter Miscellaneous Notes * Telephone Encounter - Wendy Cotton RN - 05/11/2023 12:55 PM NYLON OPERATOR Agreeable to arrive at 1300 N OPERATOR * Telephone Encounter - Wendy Cotton RN - 05/10/2023 10:05 AM NYLON OPERATOR Pt confirmed procedure appointment for EGD on 05/12 with a 130pm arrival . Verbalized understanding of prep instructions including NPO after midnight. Will arrive 1 hour prior to procedure time. 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 Reminded to stay on eliquis for this. Reminded to take all regular medications as scheduled and to take all heart and BP meds in the morning of test with a sip of water N OPERATOR documented in this encounter Plan of Treatment Upcoming Encounters Date Type Department Care Team (Late st Contact Info) Description 07/09/2024 12:30 PM NYLON OPERATOR Office Visit [facility] - GI [address] [place] [address], [facility] [place] [phone] Twin Miller MD [address] [place] [address] [place] [address] 09/19/2024 2:00 PM CDT Office Visit [facility] - Orthopedic Surgery [address] [place] [phone] Larry Alexander MD [address] [facility] [address] [place] [address] documented as of this encounter Goals Goal [...] documented as of this encounter Care Teams Ceramics Artist Relationship Specialty Start Date End Date Unknown, Provider PCP - General 08/23/22 10/12/23 documented as of this encounter
--- OUTSIDE RECORDS SUMMARY | 2024-05-24 23:33 | XMS_ITS | Encounter Summary ---
Author Organization [facility] Address [address] [facility] [place] [address] Care Team Providers Care Central Processing Tech Name Role Phone Unknown, Provider Primary Care Provider Unavaila ble Encounter Details Date Type Department Care Team (Late Contact Info) Description 03/08/2023 Orders Only [facility] GI [address] [place] [address] Jackelyn Licona MD [address] [place] [phone] Social History Tobacco Use Types Packs/Day Years [...] Encounters Date Type Department Care Team (Late Contact Info) Description 07/09/2024 12:30 PM COMPUTATIONAL BIOLOGIST Office Visit [facility] - GI [address] [facility] [place] [address] Twin Miller MD [facility] [place] [address] 09/19/2024 2:00 PM CDT Office Visit [facility] - Orthopedic Surgery [address] [facility] [place] [address] Larry Alexander MD [address] [facility] [address] [place] [address] documented as of this encounter Goals Goal [...] Name Priority Date/Time Associated Diagnosis Comments PT-INR 03/08/2023 1:49 PM CDT ALPHA FETOPROTEIN BLOOD TUMOR MARKER 03/08/2023 1:47 PM CDT CBC W/O DIFFERENTIAL 03/08/2023 1:47 PM CDT COMPREHENSIVE METABOLIC PANEL 03/08/2023 1:47 PM CDT documented in this encounter Results * PT-INR (03/08/2023 1:49 PM CDT) [facility] INR 1.0 [facility] Comment: Reference Range ? 0.9-1.1 Moderate-intensity Warfarin Therapy 2.0-3.0 Higher-intensity Warfarin Therapy ?? 3.0-4.0 PT 11.0 9.0 - 11.5 sec [facility] Comment: For additional information, please refer to http://education.DocDoc/faq/QXH079 (This link is being provided for informational/ educational purposes only.) REPORT COMMENT: FASTING:NO Test Performed at: [address] ??[phone] DORIAN CRUZ MD 03/08/2023 1:49 PM CDT 03/08/2023 1:50 PM CDT Jackelyn Licona MD LAB - COAGULATION OR DERABLES Performing Organization Address [facility] Co de Phone Number [address] [address] * ALPHA FETOPROTEIN BLOOD TUMOR MARKER (03/08/2023 1:47 PM CDT) [facility] Alpha-Fetoprotei n Tumor Marker 1.8 <6.1 ng/mL [facility] Comment: This test was performed using the Flex [place] chemiluminescent method. Values obtained from different assay methods cannot be used interchangeably. AFP levels, regardless of value, should not be interpreted as absolute evidence of the presence or absence of disease. REPORT COMMENT: FASTING:NO Test Performed at: [facility] [address] ??[phone] LAURA REYES 03/08/2023 1:47 PM CDT 03/08/2023 1:47 PM CDT Jackelyn Licona MD LAB - CHEMISTRY ORDE RABANGELIA Performing Organization Address [facility] Co de Phone Number [address] [address] * (ABNORMAL) CBC W/O DIFFERENTIAL (03/08/2023 1:47 PM CDT) [facility] White Blood Cell Count 11.4(H) 3.8 - [...] 12.5 fL [facility] Comment: Test Performed at: [facility] [address] [place] [address] ??[phone] CELSA SINGLETON,PHD 03/08/2023 1:47 PM CDT 03/08/2023 1:47 PM CDT Jackelyn Licona MD LAB - HEMATOLOGY ORD ERABLES [facility] [address] [place] [address] * (ABNORMAL) COMPREHENSIVE METABOLIC PANEL (03/08/2023 1:47 PM CDT) [facility] Glucose 104 65 - 139 mg/dL [facility] Comment: ? Non-fasting reference interval BUN 31(H) 7 - 25 mg/dL [facility] Creatinine 1.96(H) 0.70 - 1.28 mg/dL [facility] eGFR by Cystatin C 35(L) > OR = 60 mL/min/1.7 3m2 [facility] BUN/Creatinine Ratio 16 6 - 22 (calc) [facility] Sodium 141 135 - 146 mmol/L [facility] Potassium 4.4 3.5 - 5.3 mmol/L [facility] Chloride 103 98 - 110 mmol/L [facility] CO2 24 20 - 32 mmol/L [facility] Calcium 9.4 8.6 - 10.3 mg/dL [facility] Protein Total 7.1 6.1 - 8.1 g/dL [facility] Albumin 3.7 3.6 - 5.1 g/dL [facility] Globulin Total 3.4 1.9 - 3.7 g/dL (calc) [facility] Albumin/Globulin Ratio 1.1 1.0 - 2.5 (calc) [facility] Bilirubin Total 0.6 0.2 - 1.2 mg/dL [facility] Alkaline Phosphatase 120 35 - 144 U/L [facility] AST 27 10 - 35 U/L [facility] ALT 20 9 - 46 U/L [facility] Comment: Test Performed at: [facility] [address], [place] ??[phone] CELSA SINGLETON,PHD 03/08/2023 1:47 PM CDT 03/08/2023 1:47 PM CDT Jackelyn Licona MD LAB - CHEMISTRY ROYCE K[facility] Organization Address City/State/[facility] Co de Phone Number [facility] [address] [place] [address] documented in this encounter Visit Diagnoses Not on filedocumented in this encounter Additional Health Concerns Infection Onset Date Last Indicated Resolved Time 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
--- OUTSIDE RECORDS SUMMARY | 2024-05-24 23:33 | XMS_ITS | Encounter Summary ---
Author Organization [facility] Address [address] [place] [address] Care Team Providers Care Director Of Channel Marketing Name Role Phone Unknown, Provider Primary Care Provider Unavaila ble Encounter Details Date Type Department Care Team (Latest Contact Info) Description 08/03/2023 Travel Social History Tobacco Use Types Packs/Day [...] or have serious hearing difficult y? No 05/12/2023 Is person blind or have serious difficulty seein g? No 05/12/2023 Does person have serious dif ficulty walking/climbing stairs? Yes 05/12/2023 Does person have difficulty dressing/bathing? Ye s 05/12/2023 Does person have difficulty doing errands alone? Yes 05/12/2023 Cognitive Status Response Date of Assessm ent Does person have difficulty concentrating/remembering/making decisions? No 05/12/2023 documented as of this encounter Plan of Treatment Upcoming Encounters Date Type Department Care Team (Late st Contact Info) Description 07/09/2024 12:30 PM GLOBAL SAFETY OFFICER Office [place] [facility] [place] [address] [place] [address], [place] [phone] Twin Miller MD [address] [place] [address] OF GASTR[place] [address] 09/19/2024 2:00 PM CDT Office Visit [facility] - Orthopedic Surgery [address] [place] [address] Larry Alexander MD [address] [facility] [address] [place] [address] documented as of this encounter Goals Goal [...] track( 023 12:04 PM CDT) No Nita Brynat, RN Note: Expected end date: 08/05/2019 The [...] documented as of this encounter Care Teams Director Of Channel Marketing Relationship Specialty Start Date End Date Unknown, Provider PCP - General 08/23/22 10/12/23 documented as of this encounter
--- OUTSIDE RECORDS SUMMARY | 2024-05-24 23:33 | XMS_ITS | Encounter Summary ---
Author Organization [facility] Address [address] [facility] [place] [address] Care Team Providers Care Retail Leasing Agent Name Role Phone Unknown, Provider Primary Care Provider Unavaila ble Reason for Visit * Auth/Cert (Routine) Specialty Diagnoses / Procedures Referred By Contac t Referred To Contact Diagnoses Nonalcoholic steatohepatitis (RAYGOZA) Acute gastric ulcer with hemorrhage Procedures CA ED EGD FLEX TRANSORAL DX EGD w/ elbesh---stay on eliquis for procedure ESOPHAGOGASTRODUODENOSCOPY (EGD) DIAGNOSTIC Referral ID Status Reason Start Date Expiration Date Visits Re quested Visits Authorized [id number] 1 1 Encounter Details Date Type Department Care Team (Late st Contact Info) Description 05/12/2023 2:00 PM SYRUP MAKER COOK - 05/12/2023 2:30 PM [facility] Surgery [facility] ENDOSCOPY [address] [place] [address] Twin Miller MD [address] [place] [address] EGD w/ elbesh---stay on eliquis for procedure Surgery Details Date/Time Status Location OR Service Patient Class Case Class Case Type Trauma Case? 05/12/2023 2:00 PM Posted [facility] Endoscopy ENDO 2 Gastroenterology Surgery Day Care Elective > 5 days Panel 1 Procedure LRB Anes Op Region Wound Class Comments EGD w/ elbesh---stay on eliquis for procedure N/A MAC Esophagus NA small esophageal varices duodenitis mild gastritis Surgeon Surgeon Role Service Panel Twin Miller MD Primary Gastroenterol ogy 1 Aneta Garduno MD Fellow Gastroenterology 1 Special Needs egd Received: Today Cheri Clark, RN P [facility] Schedulers - Endoscopy Pool Dillan cohen. This patient is in need of an egd with Dr. Miller. Dr. Mcmahan said it needs done sooner rather than later. He also said that he is on blood thinner and he should stay on it-has hx of afib. If you could please call him to get this scheduled, that would be great. Thanks. Jaylene DIGGS ?? Received Date Received Time Mar 21, 2023 12:24 PM documented in this encounter Social History Tobacco Use Types Packs/Day Years [...] Sign Reading Time Taken Comments Blood Pressure 125/73 05/12/2023 1:55 PM SYRUP MAKER COOK Pulse 79 05/12/2023 1:55 PM SYRUP MAKER COOK Temperature 36.6 ??C (97.9 ??F) 05/12/2023 1:41 PM CS T Respiratory Rate 21 05/12/2023 1:55 PM SYRUP MAKER COOK Oxygen Saturation 94% 05/12/2023 1:55 PM SYRUP MAKER COOK Inhaled Oxygen Concentration - - Weight 111.1 kg (245 lb) 05/12/2023 1:48 PM SYRUP MAKER COOK Height 180.3 cm (5' 11 ) 05/12/2023 1:48 PM SYRUP MAKER COOK Body Mass Index 34.17 05/12/2023 1:48 PM SYRUP MAKER COOK documented in this encounter Functional Status Functional [...] No 05/12/2023 documented as of this encounter Discharge Instructions * Discharge Instructions* Glendy Frankel RN - 05/12/2023 2:58 PM SYRUP MAKER COOK Images from the original note were not included. DISCHARGE INSTRUCTIONS: Call 911 if: You have sudden chest pain or trouble breathing. Seek care immediately if: You feel dizzy or faint. You have trouble swallowing. You have severe throat pain. Your bowel movements are very dark or black. Your abdomen is hard and firm and you have severe pain. You vomit blood. Contact your healthcare provider if: You feel full or bloated and cannot burp or pass gas. You have not had a bowel movement for 3 days after your procedure. You have neck pain. You have a fever or chills. You have nausea or are vomiting. You have a rash or hives. You have questions or concerns about your endoscopy. Relieve a sore throat: Suck on throat lozenges or crushed ice. Gargle with a small amount of warm salt water. Mix 1 teaspoon of salt and 1 cup of warm water to make salt water. Relieve gas and discomfort from bloating: Lie on your right side with a heating pad on your abdomen. Take short walks to help pass gas. Eat small meals until bloating is relieved. Rest after your procedure: Do not drive or make important decisions until the day after your procedure. Return to your normal activity as directed. You can usually return to work the day after your procedure. Follow up with your healthcare provider as directed: Write down your questions so you remember to ask them during your visits. ?? Copyright [employer] 2020 Information is for End User's use only and may not be sold, redistributed or otherwise used for commercial purposes. All illustrations and images included in CareNotes?? are the copyrighted property of [employer] Inc[employer] or [employer] The above information is an home health aide caregiver only. It is not intended as medical advice for individual conditions or treatments. Talk to your doctor, nurse or pharmacist before following any medical regimen to see if it is safe and effective for you. P MAKER COOK documented in this encounter Medications at Time [...] (Lidoderm) 5 % patch 01/25/2023 11/03/2023 nystatin [id number] UNIT/GM cream - BACITRACIN ointment 50:50 CREA [...] of the Body, eyes 10/12/2023 Spacer/Aero-Holding Chambers ([facility]) MISC as directed 11/17/2020 10/12/2023 triamcinolone acetonide (KENALOG) 0.1 % cream Apply to affected area 2 times daily as needed Apply to rash daily as needed. 10/12/2023 documented as of this encounter H&P Notes * Twin Miller MD - 05/12/2023 1:12 PM [facility]ST ENDOSCOPY PRE-PROCEDURE MEDICAL HISTORY & PHYSICAL NOTE 05/12/2023 Patient Name: Mason Keys Primary Care Provider: Provider Unknown Procedure Planned: Diagnostic EGD Indication(s) for Procedure: Cirrhosis, variceal screening History: Briefly, Mason Keys is a 72 year old year old male who presents today for EGD Past Medical History: Diagnosis Date ??? Actinic keratosis ??? Arthritis ??? Asthma ??? Atrial fibrillation, chronic (CMS/HCC) ??? Basal cell carcinoma ??? CAD (coronary artery disease) ??? Clotting disorder (CMS/HCC) ??? Colitis ??? COPD (chronic obstructive pulmonary disease) (CMS/HCC) ??? Diabetes (CMS/HCC) ??? DVT (deep venous thrombosis) (CMS/HCC) ??? Dyslipidemia ??? Eczema ??? GERD (gastroesophageal reflux disease) ??? Heart attack (CMS/HCC) ??? High blood pressure ??? Hx of blood clots ??? Keloid ??? Kidney disease ??? Lentigo maligna melanoma (CMS/HCC) ??? MRSA (methicillin resistant staph aureus) culture positive 07/29/2017; 02/04/19; 04/29/2019 07/29/17-Disc- tissue culture MRSA; R hip; nasal swab+ ??? Obstructive sleep apnea ??? VALENTINA (obstructive sleep apnea) ??? Other cirrhosis of liver (CMS/HCC) ??? Peripheral neuropathy ??? Psoriasis ??? S/P PICC central line placement 02/13/2019 [facility] VAT R basilic ??? Seizures (CMS/HCC) ??? Squamous cell carcinoma ??? VRE (vancomycin resistant enterococcus) culture positive 04/29/2019 rectal swab+ Allergies Allergen Reactions ??? Penicillins Skin Reactions and Swelling ??? Levaquin [Levofloxacin] Eye Itching red around the eyes , puffy, itchy ??? Green [Peppers] GI Discomfort Green and red peppers ??? Scopace [Scopolamine] Other and PHYSICAL DESIGN ENGINEER Dysfunction delirium ??? Tobramycin Eye Itching red around the eyes, puffy, itchy Medications Prior to Admission Medication Sig Dispense Refill ??? acetaminophen (TYLENOL) 325 MG tablet Take 2 (two) tablets by mouth every 4 hours as needed ??? albuterol (PROVENTIL;VENTOLIN) (5 MG/ML) 0.5% nebulizer solution 2.5 mg. (Patient taking differently: Inhale 0.5 mL by mouth 4 times daily) 1 Box 11 ??? apixaban (ELIQUIS) 5 MG tablet Take 1 (one) tablet by mouth 2 times daily ??? aspirin EC (ECOTRIN) 81 MG tablet Take 1 (one) tablet by mouth once daily ??? baclofen (LIORESAL) 10 MG tablet Take 1 (one) tablet by mouth every evening May cause drowsiness. ??? benzonatate (TESSALON) 200 MG capsule Take 1 capsule by mouth 3 times daily as needed for Cough ??? BREZTRI AEROSPHERE 160-9-4.8 MCG/ACT AERO INHALE 2 PUFFS BY MOUTH EVERY MORNING AND EVERY EVENING ??? bumetanide (BUMEX) 0.5 MG tablet Take 1 (one) tablet by mouth 2 times daily ??? camphor-menthol (Sarna/Dermasarra) 0.5-0.5 % lotion APPLY LIBERALLY TO AFFECTED AREA(S) FOUR TIMES A DAY FOR ITCHING - (EXTERNAL USE ONLY) ??? Cetirizine HCl (ZYRTEC PO) Take 10 mg by mouth daily with breakfast ??? cyanocobalamin (VITAMIN B-12) 500 MCG tablet Take 1 (one) tablet by mouth once daily ??? diclofenac sodium (Voltaren) 1 % gel APPLY 4 GM TO AFFECTED AREA(S) FOUR TIMES A DAY FOR PAIN DO NOT EXCEED MORE THAN 16 GRAMS DAILY TO ANY LOWER EXTREMITY JOINT. NOT MORE THAN 8 GRAMS DAILY TO ANY UPPER EXTREMITY JOINT. MAX 32GM/DAY OVER ALL JOINTS. (MEASURE DOSE WITH RULER ATTACHED INSIDE BOX) ??? diphenhydrAMINE (BENADRYL) 25 MG capsule Take 1 (one) capsule by mouth every 6 hours as needed for Itching ??? doxycycline hyclate (VIBRAMYCIN) 100 MG capsule Take 1 (one) capsule by mouth once daily ??? ferrous sulfate 325 (65 FE) MG tablet Take 1 (one) tablet by mouth daily with breakfast ??? folic acid (Folvite) 1 MG tablet Take 1 (one) tablet by mouth once daily (Patient not taking: Reported on 03/21/2023) ??? gabapentin (NEURONTIN) 100 MG capsule Take 2 (two) capsules by mouth at bedtime ??? lidocaine (Lidoderm) 5 % patch ??? magnesium oxide (Mag-Ox) 400 MG tablet Take 1 (one) tablet by mouth 2 times daily ??? metoprolol succinate XL 24hr (TOPROL XL) 50 MG tablet Take 1 (one) tablet by mouth once daily ??? nystatin [id number] UNIT/GM cream - BACITRACIN ointment 50:50 CREA Apply to affected area 2 times daily as needed (Patient not taking: Reported on 03/21/2023) ??? omeprazole (PriLOSEC) 40 MG capsule TAKE 1 (ONE) CAPSULE BY MOUTH 2 TIMES DAILY, BEFORE BREAKFAST AND SUPPER REASONS: PEPTIC ULCER (Patient taking differently: Take 1 (one) capsule by mouth dailybefore breakfast Reasons: Peptic Ulcer) 30 capsule 3 ??? Oxygen 1 L ??? potassium chloride ER (KLOR-CON M) 20 MEQ tablet Take 1 (one) tablet by mouth once daily ??? Pyridoxine HCl (VITAMIN B-6 PO) Take 100 mg by mouth once daily ??? roflumilast (DALIRESP) 500 MCG tablet Take 1 (one) tablet by mouth once daily ??? Skin Protectants, Misc. (BASIS FACIAL MOISTURIZER) CREA 1 Each by Apply externally route as needed Reasons: Dryness Confined to a Specific area of the Body, eyes ??? Spacer/Aero-Holding Chambers (OPTICHAMBER CHAZ) MISC as directed ??? spironolactone (Aldactone) 25 MG tablet Take 0.5 (one-half) tablet by mouth once daily ??? tamsulosin (FLOMAX) 0.4 MG capsule Take 1 (one) capsule by mouth at bedtime 1 ??? triamcinolone acetonide (KENALOG) 0.1 % cream Apply to affected area 3 times daily Apply to rash daily as needed. No current facility-administered medications for this encounter. Social History Socioeconomic History ??? Marital status: Spouse name: Not on file ??? Number of children: Not on file ??? Years of education: Not on file ??? Highest education level: Not on file Occupational History ??? Not on file Tobacco Use ??? Smoking status: Former Types: Cigarettes Quit date: 06/06/1981 Years since quittin.9 ??? Smokeless tobacco: Never Vaping Use ??? Vaping Use: Never used Substance and Sexual Activity ??? Alcohol use: No ??? Drug use: No ??? Sexual activity: Not on file Other Topics Concern ??? Not on file Social History Narrative Merged History Encounter [place] war Social Determinants of Health Financial Resource Strain: Not on file Food Insecurity: Not on file Transportation Needs: Not on file Stress: Not on file Housing Stability: Not on file Family History: Negative for GI malignancy. ROS: Chest pain: none. Dyspnea: none. Abdominal pain: none. Nausea or vomiting: none. Reflux: none. Dysphagia: none. Diarrhea: none. Constipation: none. Overt GI bleeding: none. Physical Exam: There were no vitals taken for this visit. GEN: Alert. NAD. HEENT: No scleral icterus. Normal dentition. OP clear. CV: RRR. Normal S1/S2. No m/g/r. CHEST: CTA throughout. No w/r/r. ABD: (+)BS. S/NT/ND. No palpable masses. EXT: No c/c/e. SKIN: No jaundice. NEURO: No focal deficits. PSYCH: Normal mood and affect. Labs/Data Reviewed: Recent Labs Component Name 03/08/23 1347 08/23/22202308/10/22 1259 WBC 11.4* 7.9 10.4 HGB 12.6* 14.1 13.7 HCT 39.0 44.3 42.1 PLTCOUNT 129* 194 120* Recent Labs Component Name 03/08/23 1347 08/23/22202308/10/22 1259 05/13/22 1141 02/09/22 0921 08/03/21 1025 01/09/21 1055 09/05/20 1325 SODIUM 141 - 141 140 - 139 137 140 POTASSIUM 4.4 4.6* 5.1 4.6 - 4.7 4.4 4.2 CHLORIDE 103 - 101 103 - 102 102 103 CO2 24 26 29 28 - 27 26 28 BUN 31* 26 30* 27* - 41* 50* 27* CREATININE 1.96* 1.60* 1.74* 1.84* - 1.89* 2.07* 1.46* GLUCOSE 104 113 91 117* - 124* 144* 109* CALCIUM 9.4 10.3* 10.1 9.7 - 9.6 9.7 9.9 ALT 20 27 26 20 - 28 23 24 ALKPHOS 120 113 97 91 - 106 119 126 AST 27 24 18 17 - 20 18 20 TBIL 0.6 - 0.9 0.7 - 0.6 0.9 0.8 TPROT 7.1 - 6.6 6.9 - 6.8 6.9 7.1 EGFR - 45* - - - 35* 31* 48* EGFRAFR - - - - - 40* 36* 55* ALBUMIN 3.7 - 3.9 4.0 - 4.1 3.9 3.9 - = values in this interval not displayed. Recent Labs Component Name 03/08/23 1349 08/10/22 1259 05/13/22 1141 INR 1.0 1.1 1.1 Sedation Plan: MAC Mallampati: Per Anesthesia ASA Score: Per Anesthesia Assessment/Plan: Mason Keys is a 72 year old year old male who presents today for EGD Based on the above assessment, we will perform the procedures indicated above. I have discussed theplan, risks, benefits and alternatives with the patient or guardian. When assessment above was not obtained immediately before the procedure, I have reassessed this patient and there are no changes. Twin Miller MD, FAASLD Hot Punch Press Operatorunderwriting manager IM/GI Department [facility] 05/12/2023 1:12 PM P MAKER COOK documented in this encounter Plan of Treatment Upcoming Encounters Date Type Department Care Team (Late st Contact Info) Description 07/09/2024 12:30 PM SYRUP MAKER COOK Office Visit [facility] - [address] [place] [phone] Twin Miller MD [address] [place] [address] 09/19/2024 2:00 PM CDT Office Visit [facility] - Orthopedic Surgery [address] [place] [phone] Larry Alexander MD [address] [place] [address] Scheduled Orders Name Type Priority Associated Diagnoses Orde r Schedule HELICOBACTER PYLORI UREA BREATH ADULT Microbiology Routine Acute gastritis without hemorrhage, unspecified gastritis type Ordered: 05/12/2023 documented as of this encounter Goals Goal [...] Procedure Name Priority Date/Time Associated Diagnosis Comments CA ED EGD FLEX TRANSORAL DX 05/12/2023 2:33 PM SYRUP MAKER COOK Nonalcoholic steatohepatitis (RAYGOZA) Acute gastric ulcer with hemorrhage Special Needs egd Received: Today Cheri Clark, RN P [facility] Schedulers - Endoscopy Pool [facility]. This patient is in need of an egd with Dr. Miller. Dr. Mcmahan said it needs done sooner rather than later. He also said that he is on blood thinner and he should stay on it-has hx of afib. If you could please call him to get this scheduled, that would be great. Thanks. Atkiki RN ?? Received Date Received Time Mar 21, 2023 12:24 PM EGD Routine 05/12/2023 2:04 PM SYRUP MAKER COOK documented in this encounter Results * EGD (05/12/2023 2:04 PM SYRUP MAKER COOK) Report Endoscopy POC Endoscopy Department Report _ Patient Name: Mason Keys ?Procedure Date: 05/12/2023 2:04 PM ? [...] ?- No specimens collected as patient on [employer]. Recommendation: ? - Patient has a contact [...] Procedure Code(s): ? --- Professional --- ? [address]11, Esophagogastroduo denoscopy, flexible, transoral; diagnostic, ? including collection of specimen(s) by brushing or washing, when ? performed (separate procedure) Diagnosis Code(s): ?--- Professional --- ?K74.60, Unspecified cirrhosis of liver ?I85.10, Secondary esophageal varices without ?bleeding ?K29.70, Gastritis, unspecified, without bleeding ?K29.80, Duodenitis without bleeding CPT copyright 2021 [employer]. All rights reserved. The codes documented in this report are preliminary and upon meter engineer review may be revised to meet current compliance requirements. Twin Miller, 05/12/2023 2:44:06 PM Note Initiated On: 05/12/2023 2:04 PM Number of Addenda: 0 ? [facility] ? [address] [place] [address] [facility] 05/12/2023 2:04 PM SYRUP MAKER COOK Twin Miller MD GI PROCEDURE O RDERABLES [facility] documented in this encounter Visit Diagnoses Diagnosis Acute gastritis without hemorrhage, unspecified gastritis type- Primary Nonalcoholic steatohepatitis (RAYGOZA) Other chronic nonalcoholic liver disease Acute gastric ulcer with hemorrhage documented in this encounter Administered Medications Inactive Administered Medications - up to 3 most recent administrations Medication Order MAR Action Action Date Dose Rate Site 0.9% NaCl infusion at 20 mL/hr, Intravenous, CONTINUOUS, Starting on Kellen 05/12/23 at 1430, Until Kellen 05/12/23 at 1643, Pre-procedure (GI) 0.9% NaCl injection 3 mL 3 mL, Intracatheter, PRE-PROCEDURE MULTIPLE, Starting on Kellen 05/12/23 at 1421, Until Kellen 05/12/23 at 1643, For Saline Lock flushes if one is inserted for Bronchoscopy/Endoscopy procedure., Pre-procedure (GI) documented in this encounter Active and Recently Administered Medications Times are shown in SYRUP MAKER COOK. Scheduled Medication Order 05/10/2023 05/11/2023 05/12/2023 0.9% NaCl injection 3 mL 3 mL, Intracatheter, PRE-PROCEDURE MULTIPLE, Starting on Kellen 05/12/23 at 1421, Until Kellen 05/12/23 at 1643, For Saline Lock flushes if one is inserted for Bronchoscopy/Endoscopy procedure., Pre-procedure (GI) Continuous Medication Order 05/10/2023 05/11/2023 05/12/2023 0.9% NaCl infusion at 20 mL/hr, Intravenous, CONTINUOUS, Starting on Kellen 05/12/23 at 1430, Until Kellen 05/12/23 at 1643, Pre-procedure (GI) 1430 (Due) documented in this encounter Additional Health Concerns Infection Onset Date Last Indicated Resolved Time 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 Care Teams Retail Leasing Agent Relationship Specialty Start Date End Date Unknown, Provider PCP - General 08/23/22 10/12/23 documented as of this encounter
--- OUTSIDE RECORDS SUMMARY | 2024-05-24 23:33 | XMS_ITS | Encounter Summary ---
Author Organization [facility] Address [address] [facility] [place] [address] Care Team Providers Care Sap Abap Programmer Name Role Phone Unknown, Provider Primary Care Provider Unavaila ble Reason for Visit * Auth/Cert (Routine) Specialty Diagnoses / Procedures Referred By Contac t Referred To Contact Diagnoses Nonalcoholic steatohepatitis (RAYGOZA) Acute gastric ulcer with hemorrhage Procedures [place] ED EGD FLEX TRANSORAL DX EGD w/ elbesh---stay on eliquis for procedure ESOPHAGOGASTRODUODENOSCOPY (EGD) DIAGNOSTIC Referral ID Status Reason Start Date Expiration Date Visits Re quested Visits Authorized [id number] 1 1 Encounter Details Date Type Department Care Team (Late st Contact Info) Description 05/12/2023 2:28 PM LICENSE INSPECTOR Anesthesia Event [facility] ENDOSCOPY [address] [place] [phone] Mónica Gold MD [address] [facility] [place] [phone] Julissa Reyes Anes Asst [address] [facility] [place] [address] Anesthesia Record Procedure Summary Procedure Name Responsible Anesthesiologist Anesthesia Start Time Anesthesia Stop Time EGD w/ elbesh---stay on eliquis for procedure (Esophagus) Mónica Gold MD 05/12/23 1428 05/12/23 1447 Events Date Time Event Comment 05/12/2023 1423 1428 An Start 1428 Pt In Room 1428 An Start Data 1429 PT Reassessment 1430 Timeout Anesthesia part icipated in timeout at the time documented in the record by nursing. 1431 Induction 1432 Anes Ready 1433 Proc Start 1437 Proc Stop 1441 An Emergence 1443 an stop data 1443 Pt out of Room 1447 An Stop Meds Name Total lidocaine PF 2% 100 mg propofol 500 mg/50 mL injection 61.11 mg NS (0.9% NaCl) 100 mL * Agents Name Insp. N2O Exp. N2O O2 Flow - Auxiliary O2 * Blood No blood administrations on file. Lines, Drains, and Airways Type Details Placement Removal Enteral - 09/15/17; 914; Dr. Guerra; PEG; Abdomen, Left; Well; 10/28/23 (removed long ago); 204209/15/17 09 by Denise Damon RN 10/28/232042 by Sonia Hunter, DONTAE Peripheral IV Date: 05/12/23; Time : 1352; Orientation: Distal, Posterior, Right; Placed By: lisa delacruz 05/12/23 1352 by Jaylyn Zaldivar RN 05/12/23 1515 by Glendy Frankel RN documented in this encounter Social History Tobacco [...] No 05/12/2023 documented as of this encounter Progress Notes * Mónica Gold MD - 05/12/2023 3:16 PM CST ANESTHESIA POSTOP EVALUATION NOTE Procedure: EGD w/ elbesh---stay on eliquis for procedure (Esophagus) Mason Keys is a 72 year old male Patient Vitals for the past 6 hrs: BP Temp Pulse Resp SpO2 Pain Rating Score #1 Pain Scale/Observation Pulse - (SPO2/Cuff) 05/12/23 1341 124/79 97.9 ??F (36.6 ??C) 76 26 -- 0 N -- 05/12/23 1355 125/73 -- 79 21 94 % -- -- 74 bpm 05/12/23 1456 -- -- 73 -- -- -- -- -- Anesthesia Type: TIVA Pre-op Diagnosis Codes: * Nonalcoholic steatohepatitis (RAYGOZA) [K75.81] * Acute gastric ulcer with hemorrhage [K25.0] Mental Status: awake, alert, neurologic status has returned to preoperative level and sufficiently recovered from acute administration of anesthesia to participate in the evaluation Respiratory Function: natural Cardiac Function: stable Postop Pain: acceptable to the patient Postop Hydration: adequate Postop Nausea: none Assessment: no apparent anesthetic complications, patient tolerated procedure well and no evidence of recall Patient Disposition: Release from Anesthesia Care NOTABLE EVENTS: No notable events documented. NSE INSPECTOR * Mónica Gold MD - 05/12/2023 2:17 PM CST ANESTHESIA PREOPERATIVE EVALUATION NOTE Procedure: EGD w/ elbesh---stay on eliquis for procedure (Esophagus) NPO status: *Except Oral meds with H2O (05/12/2023 1:52 PM) Last Clear Liquids: 0930 (05/12/2023 1:52 PM) Vitals: Patient Vitals for the past 6 hrs: BP Temp Pulse Resp Pain Rating Score #1 05/12/23 1341 124/79 97.9 ??F (36.6 ??C) 76 26 0 LMP: No LMP for male patient. OB Status: unknown ANESTHESIA PRE-EVALUATION NOTE History of Present Illness: 72 year old male for EGD Hx includes RAYGOZA cirrhosis (recent LFT's WNL), chronic A fib (takes Eliquis), COPD (supplemental O2at night & prn), DM type 2 Previous Airway Management: ETT Placed: ETT Size: 7 Blade Type: MAC Blade Size: 4 GradeGrade: 1 Mask Airway: Easy The patient is a current non-smoker. Physical Exam: Orientation X3 Airway/Mallampati Score: III Mouth Opening Distance: 2.5 fingerwidths Neck ROM: full TM Distance: > 3 FB Teeth: poor dentition (No upper teeth, few remaining lower teeth) Heart: normal - S1 S2 Lungs: clear to ausculation bilaterally (Decreased breath sounds bilaterally) Abdomen Exam: obese and distended (BMI 34) Review of Systems: History of anesthetic complications: No Sleep Apnea Risk: Yes, CPAP - compliant Malignant Hyperthermia: No GERD: No Poor Exercise Tolerance: Yes Recent Chest Pain: No Shortness of Breath: Yes AICD/Pacemaker: No Renal Disease: No Diagnostic Tests: ECG(s) reviewed: Yes Echo(s) reviewed: Yes. Lab(s) reviewed: Yes. Other Findings: Echo 2019: EF 55%, no significant valvular pathology ANESTHESIA PLAN ASA Score: 4 NPO Status: No solids since midnight, No liquids within 2 hours and Patient instructed to be NPO after midnight Anesthesia Plan: MAC, general and TIVA Planned Induction: intravenous Planned Postop Destination: endo Anesthetic plan was discussed with: patient, spouse Anesthetic Plan discussion was: Consented The patient's procedural Anesthetic Plan was discussed with the anesthesiologist, SCREEN TENDER HELPER and speech and language assistant. BMI, Height, Weight Tobacco History Estimated body mass index is 34.17 kg/m?? as calculated from the following: Height as of this encounter: 1.803 m (5' 11 ). Weight as of this encounter: 111.1 kg (245 lb). Social History Tobacco Use Smoking Status Former ??? Types: Cigarettes ??? Quit date: 06/06/1981 ??? Years since quittin.9 Smokeless Tobacco Never Alcohol History Drug History Social History Substance and Sexual Activity Alcohol Use No Social History Substance and Sexual Activity Drug Use No Outpatient Medications: Inpatient Medications: Outpatient Medications Marked as Taking for the 05/12/23 encounter (Hospital Encounter) Medication Sig Last Dose ??? albuterol 2.5 mg. (Patient taking differently: Inhale 0.5 mL by mouth 4 times daily) 05/12/2023 at 0930 ??? apixaban Take 1 (one) tablet by mouth 2 times daily 05/12/2023 at 0930 ??? aspirin EC Take 1 (one) tablet by mouth once daily 05/11/2023 ??? baclofen Take 1 (one) tablet by mouth every evening May cause drowsiness. 05/11/2023 ??? Breztri Aerosphere INHALE 2 PUFFS BY MOUTH EVERY MORNING AND EVERY EVENING 05/12/2023 at 0930 ??? bumetanide Take 1 (one) tablet by mouth 2 times daily 05/11/2023 ??? Cetirizine HCl (ZYRTEC PO) Take 10 mg by mouth daily with breakfast 05/11/2023 ??? doxycycline hyclate Take 1 (one) capsule by mouth once daily 05/11/2023 ??? ferrous sulfate Take 1 (one) tablet by mouth daily with breakfast 05/11/2023 ??? gabapentin Take 2 (two) capsules by mouth at bedtime 05/11/2023 ??? magnesium oxide Take 1 (one) tablet by mouth 2 times daily 05/11/2023 ??? metoprolol succinate XL 24hr Take 1 (one) tablet by mouth once daily 05/12/2023 at 0930 ??? omeprazole TAKE 1 (ONE) CAPSULE BY MOUTH 2 TIMES DAILY, BEFORE BREAKFAST AND SUPPER REASONS: PEPTIC ULCER (Patient taking differently: Take 1 (one) capsule by mouth daily before breakfast Reasons: Peptic Ulcer) 05/12/2023 ??? potassium chloride ER Take 1 (one) tablet by mouth once daily 05/11/2023 ??? Pyridoxine HCl (VITAMIN B-6 PO) Take 100 mg by mouth once daily 05/11/2023 ??? roflumilast Take 1 (one) tablet by mouth once daily 05/12/2023 at 0930 ??? spironolactone Take 0.5 (one-half) tablet by mouth once daily 05/11/2023 ??? tamsulosin Take 1 (one) capsule by mouth at bedtime 05/11/2023 ??? vitamin D3 Take 1 (one) tablet by mouth once daily 05/11/2023 No current facility-administered medications for this encounter. Allergies: Allergies Allergen Reactions ??? Penicillins Skin Reactions and Swelling ??? Levaquin [Levofloxacin] Eye Itching red around the eyes , puffy, itchy ??? Green [Peppers] GI Discomfort Green and red peppers ??? Scopace [Scopolamine] Other and BRIDGE PAINTER Dysfunction delirium ??? Tobramycin Eye Itching red around the eyes, puffy, itchy Relevant Problems Problem List: Patient Active Problem List Diagnosis Date Noted ??? Benign prostatic hyperplasia without lower urinary tract symptoms 06/06/2019 Priority: Not Prioritized ??? 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 ([facility]/HCC) 08/17/2018 Priority: Not Prioritized US 05/2018, no lesions EGD 2017, no varices 08/26/20 Fibroscan not technically possible. ??? Venous stasis dermatitis of both lower extremities 02/25/2017 Priority: Not Prioritized ??? Hypoxemia 09/06/2017 ??? Pleural effusion on left 08/29/2017 ??? Methicillin resistant Staphylococcus aureus infection 08/29/2017 ??? Extradural and subdural abscess, unspecified 08/29/2017 ??? Acute respiratory failure with hypoxia ([facility]) 08/29/2017 ??? Discitis of lumbar region 08/29/2017 ??? Acute kidney failure ([facility]) 08/29/2017 ??? Sepsis ([facility]) 08/27/2017 ??? Severe sepsis without septic shock (CODE) ([facility]) 08/27/2017 ??? Acute embolism and thrombosis of deep vein of lower extremity ([facility]) 07/25/2017 ??? Bacteremia 07/25/2017 ??? Vitamin D deficiency 07/08/2017 ??? Local infection of skin and subcutaneous tissue 04/18/2017 ??? Unspecified staphylococcus as the cause of diseases classified elsewhere 04/18/2017 ??? Chronic atrial fibrillation ([facility]/HCC) 04/06/2017 ??? Other specified anemias 04/06/2017 ??? Venous insufficiency (chronic) (peripheral) 02/25/2017 ??? Other specified dermatitis 02/25/2017 ??? Impetiginization of other dermatoses 02/25/2017 ??? Localized edema 02/25/2017 Medical History: Past Medical History: Diagnosis Date ??? Actinic [...] ??? S/P PICC central line placement 02/13/2019 [facility] VAT R basilic ??? Seizures (CMS/HCC) ??? Squamous cell carcinoma ??? VRE (vancomycin resistant enterococcus) culture positive 04/29/2019 rectal swab+ Surgical History: Past Surgical History: Procedure Laterality Date ??? Cataract Removal Bilateral ??? ENDOSCOPY, UPPER N/A 09/15/2017 N/A; ESOPHAGOGASTRODUODENOSCOPY (EGD) DIAGNOSTIC ??? ENDOSCOPY, UPPER N/A 07/03/2020 N/A; ESOPHAGOGASTRODUODENOSCOPY (EGD) DIAGNOSTIC--PATEL ??? ENDOSCOPY, UPPER N/A 10/07/2022 N/A; EGD w/ patel ??? EXCISION BURSA Right 02/08/2019 Right; EXCISION BURSA (BURSECTOMY) TROCHANTERIC/HIP ??? GENERAL SURGERY PROCEDURE Right 02/04/2019 Right; PLACEMENT WOUND VAC ??? GENERAL SURGERY PROCEDURE Right 05/02/2019 Right; PLACEMENT WOUND VAC ??? HIP ARTHROPLASTY, REVISION Right 02/08/2019 Right; REVISION HIP ARTHROPLASTY BOTH COMPONENT ??? HX JOINT REPLACEMENT ??? HX JOINT REPLACEMENT right hip 2005, left hip 2008 ??? INCISION AND DRAINAGE Right 02/04/2019 Right; IRRIGATION AND DEBRIDEMENT WOUND HIP ??? INCISION AND DRAINAGE Right 05/02/2019 Right; IRRIGATION AND DEBRIDEMENT RIGHT HIP ABSCESS ??? Tracheostomy N/A 09/13/2017 N/A; TRACHEOSTOMY LENDING ACTIVITIES SUPERVISOR Status: No LMP for male patient. unknown OB History No obstetric history on file. Covid Vaccine: Lab Results: Recent Labs Component Name 03/08/23 1347 WBC 11.4* RBC 4.24 HCT 39.0 HGB 12.6* PLTCOUNT 129* MCV 92.0 MCH 29.7 MCHC 32.3 MPV 13.6* Recent Labs Component Name 03/08/23 1347 SODIUM 141 POTASSIUM 4.4 CALCIUM 9.4 CHLORIDE 103 CO2 24 GLUCOSE 104 BUN 31* CREATININE 1.96* Recent Labs Component Name 03/08/23 1349 PT 11.0 INR 1.0 No results found for requested labs within last 120 days. Recent Labs Result Component Current Result Albumin 3.7 (03/08/2023) Alkaline Phosphatase 120 (03/08/2023) ALT 20 (03/08/2023) AST 27 (03/08/2023) Bilirubin Total 0.6 (03/08/2023) NSE INSPECTOR documented in this encounter Miscellaneous Notes * Anesthesia Transfer of Care - Julissa Reyes Anes Asst - 05/12/2023 2:47 PM CST ANESTHESIA TRANSFER OF CARE NOTE Today's Date: 05/12/2023 Date of : 1950 Patient: Mason Keys Procedure(s) with comments: EGD w/ alexus---stay on eliquis for procedure - small esophageal varices duodenitis mild gastritis Surgeon(s): Primary: Twin Miller MD Fellow: Aneta Garduno MD Preop Diagnosis: Pre-op Diagnois: * Nonalcoholic steatohepatitis (RAYGOZA) [K75.81] * Acute gastric ulcer with hemorrhage [K25.0] Pre-op Meds (From admission, onward) Start Stop Status Route Frequency Ordered 05/12/23 1430 0.9% NaCl infusion -- Dispensed IV CONTINUOUS 05/12/23 1421 05/12/23 1421 0.9% NaCl injection 3 mL -- Dispensed IK PRE-PROCEDURE MULTIPLE 05/12/23 142 Post-op Diagnosis: * Nonalcoholic steatohepatitis (RAYGOZA) [K75.81] * Acute gastric ulcer with hemorrhage [K25.0] . Allergies Allergen Reactions ??? Penicillins Skin Reactions and Swelling ??? Levaquin [Levofloxacin] Eye Itching red around the eyes , puffy, itchy ??? Green [Peppers] GI Discomfort Green and red peppers ??? Scopace [Scopolamine] Other and BRIDGE PAINTER Dysfunction delirium ??? Tobramycin Eye Itching red around the eyes, puffy, itchy Vitals: Patient Vitals for the past 3 hrs: BP Temp Pulse Resp SpO2 Pain Rating Score #1 05/12/23 1355 125/73 -- 79 21 94 % -- 05/12/23 1341 124/79 97.9 ??F (36.6 ??C) 76 26 -- 0 Lines, Drains, and Airways Type Details Placement Removal Enteral - 09/15/17; 914; Dr. Guerra; PEG; Abdomen, Left; Well 09/15/17914 by Denise Damon, DONTAE Peripheral IV Date: 05/12/23; Time: 2; Orientation: Distal, Posterior, Right; Location: Forearm;Placed By: lisa delacruz; Gauge: 22 Gauge 05/12/23 135 by Jaylyn Zaldivar, DONTAE Intraprocedure I/O Totals Intake NS (0.9% NaCl) 100.00 mL Total Intake 100 mL Patient Transfer Location: Endo Recovery Transport Airway: spontaneous respirations Complications: None Handoff Given? Yes Checklist or Protocol - The glaser handoff elements that must be included in the transfer of care checklist include: 1. Identification of patient. 2. Identification of responsible practitioner (PACU nurse or advanced practitioner). 3. Discussion of pertinent medical history. 4. Discussion of the surgical/procedure course (procedure, reason for surgery, procedure performed). 5. Intraoperative anesthetic management and issue/concerns. 6. Expectations/Plans for the early post-procedure period. 7. Opportunity for questions and acknowledgement of understanding of report from the receiving PACUteam. Negar Graham Asst NSE INSPECTOR documented in this encounter Plan of Treatment Upcoming Encounters Date Type Department Care Team (Late st Contact Info) Description 07/09/2024 12:30 PM LICENSE INSPECTOR Office Visit [facility] - GI [address] [facility], [place] [address] Twin Miller MD [facility] [place] [address] 09/19/2024 2:00 PM CDT Office Visit [facility] - Orthopedic Surgery [address] [place] [phone] Larry Alexander MD [address] [facility] [address] [place] [address] documented as of this encounter Goals Goal [...] Diagnoses Not on filedocumented in this encounter Administered Medications Inactive Administered Medications - up to 3 most recent administrations Medication Order MAR Action Action Date Dose Rate Site 0.9% NaCl infusion Intravenous, CONTINUOUS PRN, Starting on Ekllen 05/12/23 at 1428, Until Kellen 05/12/23 at 1447, Anesthesia Intra-op $ New Bag/Syringe 05/12/2023 2:28 PM LICENSE INSPECTOR lidocaine HCl (PF) (Xylocaine MPF) 2 % injection Intravenous, PRN, Starting on Kellen 05/12/23 at 1431, Until Kellen 05/12/23 at 1447, Anesthesia Intra-op $ Given 05/12/2023 2:31 PM LICENSE INSPECTOR 100 mg propofol (Diprivan) infusion Intravenous, CONTINUOUS PRN, Starting on Kellen 05/12/23 at 1431, Until Kellen 05/12/23 at 1447, Anesthesia Intra-op Rate Change 05/12/2023 2:34 PM LICENSE INSPECTOR 100 mcg/kg/min 66.66 mL/hr $ New Bag/Syringe 05/12/2023 2:31 PM LICENSE INSPECTOR 150 mcg/kg/min 99 .99 mL/hr documented in this encounter Additional Health Concerns Infection Onset Date Last Indicated Resolved Time 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 Care Teams Sap Abap Programmer Relationship Specialty Start Date End Date Unknown, Provider PCP - General 08/23/22 10/12/23 documented as of this encounter
--- OUTSIDE RECORDS SUMMARY | 2024-05-24 23:33 | XMS_ITS | Encounter Summary ---
Author Organization [facility] Address [address] [place] [address] Care Team Providers Care Respiratory Care Program Director Name Role Phone Unknown, Provider Primary Care Provider Unavaila ble Encounter Details Date Type Department Care Team (Late st Contact Info) Description 05/24/2023 Orders Only [facility] - GI [address] [place] [phone] Cheri Clark, solution engineer gastric ulcer with hemorrhage Social History Tobacco Use Types Packs/Day Years [...] st Contact Info) Description 07/09/2024 12:[address] Office Visit [facility] - GI [address] [facility] [place] [address] Twin Miller MD [address] [facility] [address] [place] [address] 09/19/2024 2:00 PM CDT Office Visit [facility] - Orthopedic Surgery [address] [facility] [place] [address] Larry Alexander MD [address] [place] [address] Scheduled Orders Name Type Priority Associated Diagnoses Orde r Schedule HELICOBACTER PYLORI UREA BREATH ADULT Microbiology Routine Acute gastric ulcer with hemorrhage 1 Occurrences starting 05/25/2023 until 06/24/2024 documented as of this encounter Goals Goal [...] as of this encounter Visit Diagnoses Diagnosis Acute gastric ulcer with hemorrhage- Primary documented in this encounter Additional Health Concerns Infection Onset Date Last Indicated Resolved Time 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
--- OUTSIDE RECORDS SUMMARY | 2024-05-24 23:33 | XMS_ITS | Encounter Summary ---
Author Organization [facility] Address [address] [facility] [place] [address] Care Team Providers Care Cardiac Monitor Technician Name Role Phone Napoleon Birmingham Primary Care Provider Ethan bridges Encounter Details Date Type Department Care Team (Latest Contact Info) Description 10/14/2023 Travel Social History Tobacco Use Types Packs/Day [...] and heating? Not hard at all 10/14/2023 [facility] [place] [facility] Occup[facility] ional [facility] - Occupational Stress [...] place to sleep or slept in a long-term (including now)? No 10/14/2023 Sex and Gender [...] st Contact Info) Description 07/09/2024 12:30 PM SAMPLE DISPLAY PREPARER Office Visit [facility] - GI [address] [place] [address], [place] [phone] Twin Miller MD [address] [place] [address] [place] [address] 09/19/2024 2:00 PM CDT Office Visit [facility] - Orthopedic Surgery [facility] [place] [phone] Larry Alexander MD [address] [place] [address] documented as of this encounter Goals Goal [...] documented as of this encounter Care Teams Cardiac Monitor Technician Relationship Specialty Start Date End Date Napoleon Birmingham PCP - General 10/13/23 05/14/24 documented as of this encounter
--- OUTSIDE RECORDS SUMMARY | 2024-05-24 23:33 | XMS_ITS | Encounter Summary ---
Author Organization [facility] Address [address] [place] [address] Care Team Providers Care Hog Cutter Name Role Phone Unknown, Provider Primary Care Provider Unavaila ble Reason for Referral * Procedure (Routine) - Closed Specialty Diagnoses / Procedures Referred By Contsara t Referred To Contact Gastroenterology Diagnoses 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) Cirrhosis of liver without ascites, unspecified hepatic cirrhosis type (HCC) Nonalcoholic steatohepatitis (RAYGOZA) Atrial fibrillation, unspecified type (HCC) Acute gastric ulcer with hemorrhage Procedures EGD Twin Miller MD [address] [place] [address] [facility] [address] [place] [address] Referral ID Status Reason Start Date Expiration Date Visits Re quested Visits Authorized [id number] Closed 03/21/2023 03/20/2024 1 1 * Radiology Services (Routine) - Closed Specialty Diagnoses / Procedures Referred By Contac t Referred To Contact Ultrasound Diagnoses 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) Cirrhosis of liver without ascites, unspecified hepatic cirrhosis type (HCC) Nonalcoholic steatohepatitis (RAYGOZA) Atrial fibrillation, unspecified type (HCC) Acute gastric ulcer with hemorrhage Procedures US ABDOMEN LIMITED Twin Miller MD [address] [place] [address] [facility] [address] [place] [address] Referral ID Status Reason Start Date Expiration Date Visits Re quested Visits Authorized [id number] Closed 03/21/2023 03/20/2024 1 1 Reason for Visit * Reason Comments Cirrhosis Encounter Details Date Type Department Care Team (Latest Contact Info) Description 03/21/2023 11:30 AM CDT Office Visit [facility] - GI [employer], [place] [id number] Twin Miller MD [employer] [address]L [place] [address] Acute gastric ulcer with hemorrhage (Primary Dx); 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); Cirrhosis of liver without ascites, unspecified hepatic cirrhosis type (HCC); Nonalcoholic steatohepatitis (RAYGOZA); Atrial fibrillation, unspecified type (HCC) Social History Tobacco Use Types Packs/Day [...] Sign Reading Time Taken Comments Blood Pressure 135/71 03/21/2023 11:50 AM CDT Pulse 79 03/21/2023 11:50 AM CDT Temperature 36.1 ??C (97 ??F) 03/21/2023 11:50 AM CDT Respiratory Rate 18 03/21/2023 11:50 AM CDT Oxygen Saturation 99% 03/21/2023 11:50 AM CDT Inhaled Oxygen Concentration - - Weight 110.7 kg (244 lb) 03/21/2023 11:50 AM CDT Height 180.3 cm (5' 11 ) 03/21/2023 11:50 AM CDT Body Mass Index 34.03 03/21/2023 11:50 AM CDT documented in this encounter Functional [...] No 10/07/2022 documented as of this encounter Progress Notes * Twin Miller MD - 03/21/2023 12:10 PM CDT I saw Mr. Keys in [facility] today for follow up visit regarding: Past Visit Note. Prior patient of Dr Licona transferring care to me. 71 year old male with history of RAYGOZA and cirrhosis. -History of MRSA bacteremia 1 year ago c/b empyema and epidural abscess. History of DM2, CAD, DVT, and Afib. -Patient was diagnosed with cirrhosis in 2018 based on imaging. ?? Patient's liver disease is complicated by: -Ascites: No ascites. No prior LVP. Was previously on lasix, now on bumex 0.5mg bid. Also, on spironolactone 12.5mg daily. On diuretics for LE edema -Varices: No bleeding episodes. Last EGD 06/2020 without varices. -Encephalopathy: No symptoms of HE. ?? Interval events: Since last visit, he was admitted to [facility] x 2. First admission was for COPD exacervation. Second admission (discharged last Tuesday) was for LE edema L>R, treated as cellulitis. Since discharge, his right leg has started to swell. ?? Alcohol: Does not drink alcohol. Tobacco: He did smoke from 4650-1380. ?? Chronic medical problems: Afib on eliquis CAD, NSTEMI age 30 COPD HTN VALENTINA on BIPAP Chief Complaint Patient presents with ??? Cirrhosis Patient Active Problem List: Acute embolism and thrombosis of deep vein of lower extremity (CMS/HCC) Bacteremia Vitamin D deficiency Local infection of skin and subcutaneous tissue Unspecified staphylococcus as the cause of diseases classified elsewhere Chronic atrial fibrillation (CMS/HCC) Other specified anemias Venous insufficiency (chronic) (peripheral) Other specified dermatitis Impetiginization of other dermatoses Localized edema Hypoxemia Pleural effusion on left Methicillin resistant Staphylococcus aureus infection Extradural and subdural abscess, unspecified Acute respiratory failure with hypoxia (CMS/HCC) Discitis of lumbar region Acute kidney failure (CMS/HCC) Sepsis (CMS/HCC) Severe sepsis without septic shock (CODE) (CMS/HCC) 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 (CMS/HCC) 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 Prior patient of Dr. Licona. Denies any new symptoms. He is accompanied by his today. EGD back in October showed a bleeding peptic ulcer that was treated with a heat probe. Denies any symptoms of GI bleed. Imaging US Impression: ?? 1.Liver Visualization Score A: No or minimal limitations. 2.US-1 Negative. Repeat surveillance US in 6 months. 3.Cirrhosis without evidence of portal hypertension. 4.Cholelithiasis. US abd ltd 08/23/2022: Moderate limitations. Hepatic cirrhosis without evidence of portal hypertension. ?? Liver biopsy/Fibroscan: -Fibroscan 08/26/20: techinically difficult study; unable to get valid reading Endoscopy EGD 10/07/2022 Impression: ? - Esophagogastric landmarks identified. ? - Portal hypertensive gastropathy. ? - Erythematous mucosa in the antrum. Biopsied. ? - Oozing duodenal ulcer with oozing hemorrhage ? (Ernesto Class Ib). Treated with a heater probe. ? Clip (MR conditional) was placed. EGD: -09/15/17: PEG placement. No esophageal varices. -07/03/20: No esophageal or gastric varices seen. ?? Colonoscopy: -Patient reports 2017 without polyps Current Outpatient Medications Medication Sig ??? acetaminophen (TYLENOL) 325 MG tablet Take 2 (two) tablets by mouth every 4 hours as needed ??? albuterol (PROVENTIL;VENTOLIN) (5 MG/ML) 0.5% nebulizer solution 2.5 mg. (Patient taking differently: Inhale 0.5 mL by mouth 4 times daily) ??? apixaban (ELIQUIS) 5 MG tablet Take [...] tablet by mouth once daily ??? nystatin 023914 UNIT/GM cream - BACITRACIN ointment 50:50 CREA Apply to affected area 2 times daily as needed (Patient not taking: Reported on 03/21/2023) ??? omeprazole (PriLOSEC) 40 MG capsule TAKE 1 (ONE) CAPSULE BY MOUTH 2 TIMES DAILY, BEFORE BREAKFAST AND SUPPER REASONS: PEPTIC ULCER (Patient taking differently: Take 1 (one) capsule by mouth dailybefore breakfast Reasons: Peptic Ulcer) ??? Oxygen 1 L ??? potassium chloride [...] 1 (one) capsule by mouth at bedtime ??? triamcinolone acetonide (KENALOG) 0.1 % cream Apply to affected area 3 times daily Apply to rash daily as needed. No current facility-administered medications for this visit. He describes his current alcohol consumption none. Social History Social History Narrative Merged History Encounter [place] war Review of systems: Chest pain: none. Shortness of breath: none. Nausea and vomiting: none. Constipation or diarrhea: none. Upper or lower GI bleeding: none. On exam today, he appeared obese, alert and anicteric. Exam was limited to wheelchair as the patient could not get on exam bed. I reviewed today's vital signs with the patient. Vitals: 03/21/23 1150 BP: 135/71 Pulse: 79 Resp: 18 Temp: 97 ??F (36.1 ??C) SpO2: 99% Weight: 110.7 kg (244 lb) Height: 1.803 m (5' 11 ) Body mass index is 34.03 kg/m??. Wt Readings from Last 3 Encounters: 03/21/23 110.7 kg (244 lb) 10/07/22 120.7 kg (266 lb) 08/23/22 120.7 kg (266 lb) . Lungs were clear to auscultation bilaterally. Heart sounds were regular rate regular rhythm consistent with atrial fibrillation. . Abdomen was obese, soft and nontender. Liver edge palpable: no. Spleen palpable: no. Ascites: none. Hernias: none. Pretibial edema: trace. Relevant test results: Recent Labs Component Name 03/08/23 1349 03/08/23 1347 08/23/22 2024 08/10/22 1259 05/13/22 1141 09/05/20 1325 08/20/20 0000 10/10/18 1515 09/19/17 0243 09/18/17 0003 09/06/17 1157 09/06/17 1157 09/04/17 0447 TBILI - - 0.6 - - - - - - - - 0.3 0.3 TBIL - 0.6 - 0.9 0.7 - 0.8 - - - - - - ALKPHOS - 120 113 97 91 - 113 - - - - 204* 190* ALT - 20 27 26 20 - 19 - - - - 10 12 AST - 27 24 18 17 - 14 - - - - 21 27 ALB - - 3.7 - - - 3.7 - - - - 1.8* 1.5* ALBUMIN - 3.7 - 3.9 4.0 - - - - - - - - NA - - 141 - - - - - 138 140 - 143 141 SODIUM - 141 - 141 140 - 140 - - - - - - POTASSIUM - 4.4 4.6* 5.1 4.6 - 3.7 - 4.9* 3.4* - 3.8 4.9* CO2 - 24 26 29 28 - 27 - 34* 35* - 20* 27 CREATININE - 1.96* 1.60* 1.74* 1.84* - - - 0.6 0.6 - 0.7 0.6 BUN - 31* 26 30* 27* - 27* - 26 25 - 21 11 HGB - 12.6* 14.1 13.7 13.7 - 14.2 - 8.1* 8.8* - - 7.7* WBC - 11.4* 7.9 10.4 8.5 - 8.1 - 8.5 8.7 - - 11.0* PLTCOUNT - 129* 194 120* 136* - - - 208 199 - - 339 PLT - - - - - - 106* - - - - - - INR 1.0 - - 1.1 1.1 - - - - - - - - - = values in this interval not displayed. No recent labs available. Assessment: 1. Compensated RAYGOZA cirrhosis not requiring liver transplant evaluation and likely be contraindicated due to age 2. Chronic atrial fibrillation on DOAC. 3. History of peptic ulcer disease with bleeding requiring intervention 4. Portal hypertensive gastropathy 5. Obesity. Plan: 1. Continue current medication without change 2. Labs and ultrasound with RTC for liver cancer screening 3. Schedule EGD for follow-up of peptic ulcer disease, patient to continue his anticoagulation and should not stop for the EGD. An appointment was scheduled for him to see me in followup in 6 months. Total time spent with patient was 33 minutes, including documentation, reviewing records, coordination of care, discussing with patient current diagnosis prognosis and overall plan of care, with morethan half of the encounter time was spent counseling and arranging plan of care. Address letter to: Provider Unknown No address on file Copy to: Provider Unknown No address on file Orders Placed This Encounter ??? US ABDOMEN LIMITED ??? ALPHA FETOPROTEIN BLOOD TUMOR MARKER ??? CBC WITH DIFFERENTIAL ??? COMPREHENSIVE METABOLIC PANEL ??? PT-INR [facility] ??? EGD Twin Miller MD, FAASLD Horses Or Mules Teamstergristmill operator IM/GI Department [facility] documented in this encounter Miscellaneous Notes * Addendum Note - Cheri Clark RN - 03/21/2023 12:35 PM CDTAddended by: CHERI CLARK on: 03/21/2023 12:35 PM Modules accepted: Orders documented in this encounter Plan of Treatment Upcoming Encounters Date Type Department Care Team (Late st Contact Info) Description 07/09/2024 12:30 PM DEATH CLAIM EXAMINER Office Visit [facility] - GI [address] [place] [address], [facility] [address] Twin Miller MD [address] [place] [address] [place] [address] 09/19/2024 2:00 PM CDT Office Visit [facility] - Orthopedic Surgery [facility] [place] [address] Larry Alexander MD [address] [facility] [address] [place] [address] Scheduled Orders Name Type Priority Associated Diagnoses Orde r Schedule EGD GI Routine 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) Cirrhosis of liver without ascites, unspecified hepatic cirrhosis type (HCC) Nonalcoholic steatohepatitis (RAYGOZA) Atrial fibrillation, unspecified type (HCC) Acute gastric ulcer with hemorrhage 1 Occurrences starting 03/21/2023 until 03/20/2024 ALPHA FETOPROTEIN BLOOD TUMOR MARKER Lab Routine 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) Cirrhosis of liver without ascites, unspecified hepatic cirrhosis type (HCC) Nonalcoholic steatohepatitis (RAYGOZA) Atrial fibrillation, unspecified type (HCC) Acute gastric ulcer with hemorrhage Ordered: 03/21/2023 CBC WITH DIFFERENTIAL Lab Routine 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) Cirrhosis of liver without ascites, unspecified hepatic cirrhosis type (HCC) Nonalcoholic steatohepatitis (RAYGOZA) Atrial fibrillation, unspecified type (HCC) Acute gastric ulcer with hemorrhage Ordered: 03/21/2023 COMPREHENSIVE METABOLIC PANEL Lab Routine 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) Cirrhosis of liver without ascites, unspecified hepatic cirrhosis type (HCC) Nonalcoholic steatohepatitis (RAYGOZA) Atrial fibrillation, unspecified type (HCC) Acute gastric ulcer with hemorrhage Ordered: 03/21/2023 PT-INR Lab STAT 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) Cirrhosis of liver without ascites, unspecified hepatic cirrhosis type (HCC) Nonalcoholic steatohepatitis (RAYGOZA) Atrial fibrillation, unspecified type (HCC) Acute gastric ulcer with hemorrhage Ordered: 03/21/2023 documented as of this encounter Goals Goal [...] documented as of this encounter Results * US ABDOMEN LIMITED [...] DATE/TIME OF EXAM: ??04/02/2024 12:19 PM, LOCATION ??[facility] INDICATION: K75.81: Liver cirrhosis secondary [...] DATE/TIME OF EXAM: 04/02/2024 12:19 PM, LOCATION [facility] INDICATION: K75.81: Liver cirrhosis secondary [...] 7:45 PM Twin Miller MD US ORDERABLES documented in this encounter Visit Diagnoses Diagnosis Acute gastric ulcer with hemorrhage- Primary 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) Other chronic nonalcoholic liver disease Cirrhosis of liver without ascites, unspecified hepatic cirrhosis type (HCC) Nonalcoholic steatohepatitis (RAYGOZA) Other chronic nonalcoholic liver disease Atrial fibrillation, unspecified type (HCC) 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) Other [...] documented as of this encounter Care Teams Hog Cutter Relationship Specialty Start Date End Date Unknown, Provider PCP - General 08/23/22 10/12/23 documented as of this encounter
--- OUTSIDE RECORDS SUMMARY | 2024-05-24 23:33 | XMS_ITS | Encounter Summary ---
Author Organization [facility] Address [address] [place] [address] Care Team Providers Care Marketing Communications Leader Name Role Phone Unknown, Provider Primary Care Provider Unavaila ble Reason for Visit * Auth/Cert (Routine) Specialty Diagnoses / Procedures Referred By Contac t Referred To Contact Diagnoses Nonalcoholic steatohepatitis (RAYGOZA) Acute gastric ulcer with hemorrhage Procedures ME ED EGD FLEX TRANSORAL DX EGD w[facility] alexus[facility] ESOPHAGOGASTRODUODENOSCOPY (EGD) DIAGNOSTIC Referral ID Status Reason Start Date Expiration Date Visits Re quested Visits Authorized [id number] 1 1 Encounter Details Date Type Department Care Team (Latest Contact Info) Description 05/12/2023 12:41 PM MARKETING COMMUNICATIONS LEADER - 05/12/2023 3:30 PM MARKETING COMMUNICATIONS LEADER Hospital Encounter [facility] [address] [place] [address] Twin Miller MD [address] [place] [address] Surgery General Discharge Disposition: Home or Self Care Social [...] Sign Reading Time Taken Comments Blood Pressure 132/85 05/12/2023 3:15 PM MARKETING COMMUNICATIONS LEADER Pulse 68 05/12/2023 3:15 PM MARKETING COMMUNICATIONS LEADER Temperature 36.4 ??C (97.6 ??F) 05/12/2023 2:45 PM CS T Respiratory Rate 20 05/12/2023 3:15 PM MARKETING COMMUNICATIONS LEADER Oxygen Saturation 95% 05/12/2023 3:15 PM MARKETING COMMUNICATIONS LEADER Inhaled Oxygen Concentration - - Weight 111.1 kg (245 lb) 05/12/2023 1:48 PM MARKETING COMMUNICATIONS LEADER Height 180.3 cm (5' 11 ) 05/12/2023 1:48 PM MARKETING COMMUNICATIONS LEADER Body Mass Index 34.17 05/12/2023 1:48 PM MARKETING COMMUNICATIONS LEADER documented in this encounter Functional Status Functional [...] Glendy Frankel RN - 05/12/2023 2:58 PM MARKETING COMMUNICATIONS LEADER Images from the original note were not [...] ask them during your visits. ?? Copyright [employer] 2020 Information is for End User's use only and may not be sold, redistributed or otherwise used for commercial purposes. All illustrations and images included in CareNotes?? are the copyrighted property of [employer] or [employer] The above information is an nutrition services aide only. It is not intended as medical advice for individual conditions or treatments. Talk to your doctor, nurse or pharmacist before following any medical regimen to see if it is safe and effective for you. ETING COMMUNICATIONS LEADER documented in this encounter Medications at Time [...] (Lidoderm) 5 % patch 01/25/2023 11/03/2023 nystatin 988558 UNIT/GM cream - BACITRACIN ointment 50:50 CREA [...] of the Body, eyes 10/12/2023 Spacer/Aero-Holding Chambers ([facility]) MISC as directed 11/17/2020 10/12/2023 triamcinolone [...] ??? S/P PICC central line placement 02/13/2019 [facility] VAT R basilic ??? Seizures (CMS/HCC) ??? Squamous cell carcinoma ??? VRE (vancomycin resistant enterococcus) culture positive 04/29/2019 rectal swab+ Allergies Allergen Reactions ??? Penicillins Skin Reactions and Swelling ??? Levaquin [Levofloxacin] Eye Itching red around the eyes , puffy, itchy ??? Green [Peppers] GI Discomfort Green and red peppers ??? Scopace [Scopolamine] Other and FISHER MUSSEL Dysfunction delirium ??? Tobramycin Eye Itching red [...] tablet by mouth once daily ??? nystatin 888680 UNIT/GM cream - BACITRACIN ointment 50:50 CREA [...] affect. Labs/Data Reviewed: Recent Labs Component Name 03/08/23134608/23/22202308/10/22 1259 WBC 11.4* 7.9 10.4 HGB 12.6* 14.1 13.7 HCT 39.0 44.3 42.1 PLTCOUNT 129* 194 120* Recent Labs Component Name 03/08/23134608/23/22202308/10/229 05/13/22 1141 02/09/22 0921 08/03/21 1025 01/09/21 [...] interval not displayed. Recent Labs Component Name 03/08/23134808/10/22125805/13/22 1141 INR 1.0 1.1 1.1 Sedation Plan: [...] are no changes. Twin Miller MD, FAASLD Talent Development Directorshot polisher IM/GI Department [facility] 05/12/2023 1:12 PM ETING COMMUNICATIONS LEADER documented in this encounter Plan of Treatment Upcoming Encounters Date Type Department Care Team (Late st Contact Info) Description 07/09/2024 12:30 PM MARKETING COMMUNICATIONS LEADER Office Visit [facility] - GI [address] [place] [address], [place] [phone] Twin Miller MD [address] [place] [address] [place] [address] 09/19/2024 2:00 PM CDT Office Visit [facility] - Orthopedic Surgery [address] [place] [phone] [place] [address] [place] [address] [address] [place] [address] Scheduled Orders Name Type Priority Associated Diagnoses [...] Procedure Name Priority Date/Time Associated Diagnosis Comments ME ED EGD FLEX TRANSORAL DX 05/12/2023 2:33 PM MARKETING COMMUNICATIONS LEADER Nonalcoholic steatohepatitis (RAYGOZA) Acute gastric ulcer with hemorrhage Special Needs egd Received: Today Cheri Clark, RN P [facility] Schedulers - Endoscopy Pool Hi gumarco. This patient is in need of an [...] 12:24 PM EGD Routine 05/12/2023 2:04 PM MARKETING COMMUNICATIONS LEADER documented in this encounter Results * EGD (05/12/2023 2:04 PM MARKETING COMMUNICATIONS LEADER) Report Endoscopy POC Endoscopy Department Report _ [...] Biopsies not taken ? as patient on rumr: turn off the lights. ? Localized mild inflammation characterized by erosions and erythema was ? found in the duodenal bulb. Biopsies not taken as patient on rumr: turn off the lights. ? The cardia and gastric fundus were normal on retroflexion. ? Estimated Blood Loss: ? Estimated blood loss: none. Complications: ?No immediate complications. Impression: ? - Small (< 5 mm) esophageal varices. ?- Gastritis. ?- Duodenitis. ?- No specimens collected as patient on rumr: turn off the lights. Recommendation: ? - Patient has a contact [...] Procedure Code(s): ? --- Professional --- ? 07054, Esophagogastroduo denoscopy, flexible, transoral; diagnostic, ? including collection of specimen(s) by brushing or washing, when ? performed (separate procedure) Diagnosis Code(s): ?--- Professional --- ?K74.60, Unspecified cirrhosis of liver ?I85.10, Secondary esophageal varices without ?bleeding ?K29.70, Gastritis, unspecified, without bleeding ?K29.80, Duodenitis without bleeding CPT copyright 2021 [employer]. All rights reserved. The codes documented in this report are preliminary and upon icd 9 coder review may be revised to meet current compliance requirements. Twin Miller, 05/12/2023 2:44:06 PM Note Initiated On: 05/12/2023 2:04 PM Number of Addenda: 0 ? [facility] ? [address] [place] [address] [facility] 05/12/2023 2:04 PM MARKETING COMMUNICATIONS LEADER Twin Miller MD GI PROCEDURE O RDERABLES [facility] documented in this encounter Visit Diagnoses Diagnosis Acute gastritis without hemorrhage, unspecified gastritis type- Primary documented in this encounter Administered Medications Inactive Administered Medications - up to 3 most recent administrations Medication Order MAR Action Action Date Dose Rate Site 0.9% NaCl infusion at 20 mL/hr, Intravenous, CONTINUOUS, Starting on Kellen 12/23 at 1430, Until Kellen 1223 at 1643, Pre-procedure (GI) 0.9% NaCl injection 3 mL 3 mL, Intracatheter, PRE-PROCEDURE MULTIPLE, Starting on Kellen 1223 at 1421, Until Kellen 1223 at 1643, For Saline Lock flushes if one is inserted for Bronchoscopy/Endoscopy procedure., Pre-procedure (GI) documented in this encounter Active and Recently Administered Medications Times are shown in MARKETING COMMUNICATIONS LEADER. Scheduled Medication Order 05/10/2023 05/11/2023 05/12/2023 0.9% [...] documented as of this encounter Care Teams Marketing Communications Leader Relationship Specialty Start Date End Date Unknown, Provider PCP - General 08/23/22 10/12/23 documented as of this encounter
--- OUTSIDE RECORDS SUMMARY | 2024-05-24 23:34 | XMS_ITS | Encounter Summary ---
Author Organization [facility] Address [address] [facility] [place] [address] Care Team Providers Care Industrial Machine Operator Name Role Phone Unknown, Provider Primary Care Provider Unavaila ble Reason for Visit * Reason Comments Refill Request Encounter Details Date Type Department Care Team (Late st Contact Info) Description 10/15/2022 Refill [facility] - [address] [phone] Jackelyn Licona MD [address] [place] [phone] Refill Request Social History Tobacco Use Types Packs/Day Years Used Date Smoking Tobacco: Former Cigarettes Q uit: 06/06/1981 Smokeless Tobacco: Never Alcohol Use Standard Drinks/Week Comments No 0 (1 standard drink = 0.6 oz pur e alcohol) Sex and Gender Information Value Date Recorded Sex Assigned at Not on file Gender Identity Not on file Sexual Orientation Not on file COVID-19 Exposure Response Date Recorded In the last 10 days, have yo u been in contact with someone who was confirmed or suspected to have Coronavirus/COVID-19? No / Unsure 10/07/2022 12:07 PM CDT documented as of this encounter Functional Status [...] st Contact Info) Description 07/09/2024 12:30 PM REGIONAL REHABILITATION DIRECTOR Office Visit [facility] - GI [address] [facility], [place] [address] Twin Miller MD [facility] DIV [place] [address] 09/19/2024 2:00 PM CDT Office Visit [facility] - Orthopedic Surgery [address] [facility] [place] [address] Larry Alexander MD [address] [facility] [address] [place] [address] documented as of this encounter Goals Goal [...] documented as of this encounter Care Teams Industrial Machine Operator Relationship Specialty Start Date End Date Unknown, Provider PCP - General 08/23/22 10/12/23 documented as of this encounter
--- OUTSIDE RECORDS SUMMARY | 2024-05-24 23:34 | XMS_ITS | Encounter Summary ---
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) Lower extremity edema Cirrhosis of liver without ascites, unspecified hepatic cirrhosis type (HCC) Screening of cancer Procedures US ABDOMEN LIMITED Jackelyn Licona MD [address] [place] [address] [address] [place] [address] Referral ID Status Reason Start Date Expiration Date Visits Re quested Visits Authorized [id number] Closed 08/17/2021 08/17/2022 1 1 Reason for Visit * Radiology Services (Routine) - Closed Specialty Diagnoses / Procedures Referred By Contac t Referred To Contact Ultrasound Diagnoses 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) Lower extremity edema Cirrhosis of liver without ascites, unspecified hepatic cirrhosis type (HCC) Screening of cancer Procedures US ABDOMEN LIMITED Jackelyn Licona MD [address] [place] [address] [facility] Us [address] [place] [address] Referral ID Status Reason Start Date Expiration Date Visits Re quested Visits Authorized [id number] Closed 08/17/2021 08/17/2022 1 1 Encounter Details Date Type Department Care Team (Late st Contact Info) Description 02/23/2022 10:41 AM CDT - 02/23/2022 11:59 PM CDT Hospital Encounter [facility] [address] [place] [address] Jackelyn Licona MD [address] [place] [address] Discharge Disposition: Home or Self Care Social [...] or have serious hearing difficult y? No 04/29/2019 Is person blind or have serious difficulty seein g? No 04/29/2019 Does person have serious dif ficulty walking/climbing stairs? No 04/29/2019 Does person have difficulty dressing/bathing? No 04/29/2019 Does person have difficulty doing errands alone? No 04/29/2019 Cognitive Status Response Date of Assessm ent Does person have difficulty concentrating/remembering/making decisions? No 04/29/2019 documented as of this encounter Medications at [...] capsule by mouth at bedtime 1 02/08/2018 albuterol (PROVENTIL;VENTOLIN) (5 MG/ML) 0.5% nebulizer solution 2.5 mg. 1 [address] 09/04/2017 10/12/2023 benzonatate (TESSALON) 200 MG capsule Take 1 capsule by mouth 3 times daily as needed for Cough 02/15/2019 10/12/2023 cyanocobalamin (VITAMIN B-12) 500 MCG tablet Take 1 (one) tablet by mouth once daily 11/03/2023 diphenhydrAMINE (BENADRYL) 25 MG capsule Take 1 (one) capsule by mouth 2 times daily folic acid (Folvite) 1 MG tablet Take 1 (one) tablet by mouth once daily 02/11/2022 10/12/2023 gabapentin (NEURONTIN) 100 MG capsule Take 3 (three) capsules by mouth 2 times daily 10/12/2023 omeprazole (PRILOSEC) 40 MG capsule Take 1 (one) capsule by mouth daily before breakfast 10/07/2022 potassium chloride ER (KLOR-CON M) 20 MEQ tablet Take 1 (one) tablet by mouth once daily 11/03/2023 Skin Protectants, Misc. (BASIS FACIAL MOISTURIZER) CREAIndications:Local Dryness of Skin,eyes 1 Each by Apply externally route as needed Reasons: Dryness Confined to a Specific area of the Body, eyes 10/12/2023 Spacer/Aero-Holding Chambers (OPTICHAMBER CHAZ) MISC as directed 11/17/2020 10/12/2023 triamcinolone acetonide (KENALOG) 0.1 % cream Apply to affected area 2 times daily as needed Apply to rash daily as needed. 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 Author Medication Management General On track( 023 12:04 PM CDT) No Monty Gentile, DONTAE Note: Expected end date: Interventions: Take all [...] Associated Diagnosis Comments US ABDOMEN LIMITED Routine 02/23/2022 11 :42 AM CDT 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) Lower extremity edema Cirrhosis of liver without ascites, unspecified hepatic cirrhosis type (HCC) Screening of cancer documented in this encounter Results * US ABDOMEN LIMITED (02/23/2022 11:42 AM CDT) Anatomical Region Laterality Modality Abdomen Ultrasound 02/23/2022 11:2 7 AM CDT Impressions 02/23/2022 11:31 AM CDT IMPRESSION: Course echotexture with nodular outline indicating cirrhosis. No suspicious hepatic observations. US LI RADS screening/surveillance Category: US LI-RADS score: US-1 Negative. Routine 6 months surveillance ultrasound examination recommended. Visualization score: C-severe limitation. Cholelithiasis without ultrasound features of acute cholecystitis. US LI-RADS REFERENCE: US Category: ?US- 1 negative: No evidence of HCC. ?US- 2 subthreshold: Observation (S) detected that may warrant short interval US surveillance; observation <10 mm in diameter, not definitely benign. ?US-3 positive: Observation (S) detected that may warrant multiphase contrast-enhanced imaging; observation equal or more than 10 mm in diameter or new thrombus in the vein. Visualization score: ?A- no or minimal limitation: limitations, if any, are unlikely to meaningfully affect sensitivity. ?B- moderate limitations: limitations may obscure small masses. ?C- severe limitations: Limitations significantly lower sensitivity for focal liver lesions. > Interpreting Provider: Marcelo Leon MD on 02/23/2022 11:31 AM Narrative 02/23/2022 11:31 AM CDT PROCEDURE: ??US ABDOMEN LIMITED, DATE/TIME OF EXAM: ??02/23/2022 10:41 AM, LOCATION ??[facility] INDICATION: K75.81: 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 K74.60: 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 R60.0: Lower extremity edema K74.60: Cirrhosis of liver without ascites, unspecified hepatic cirrhosis type Z12.9: Screening of cancer ADDITIONAL CLINICAL INFORMATION: Ordering Provider Reason For Exam: ??Liver screening. COMPARISON: None. Examination: US ABDOMEN LIMITED Date: 02/23/2022 10:41 AM Indications: K75.81: 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 K74.60: 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 R60.0: Lower extremity edema K74.60: Cirrhosis of liver without ascites, unspecified hepatic cirrhosis type Z12.9: Screening of cancer Comparison: 08/25/2021. Technique: Grayscale and color Doppler ultrasound evaluation of the hepatobiliary system was performed. Findings: Liver visualization score: LI RADS visualization score C (sever limitation in the liver extravasation). Parenchymal morphology: Coarse echotexture with nodular outline. Liver observations:None. Main portal vein: Patent. Flow direction: ??Diameter: 10 mm. Waveform: Not evaluated. ??Velocity: Not evaluated. Varices: No varices is seen at the lisette hepatis. ? Bile duct: CBD measures 5.4 mm. No biliary dilation is seen. Gallbladder:Physiologically distended. Multiple stones are noted. No sonographic evidence of acute cholecystitis. Spleen: Measures 11.5 cm. Focal lesions None. Ascites: None. Other findings:Right kidney measures 10.7 cm. Limited evaluation of the kidney due to poor acoustic window. Procedure Note Marcelo Leon MD - 02/23/2022 PROCEDURE: US ABDOMEN LIMITED, DATE/TIME OF EXAM: 02/23/2022 10:41 AM, LOCATION [facility] INDICATION: K75.81: 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 K74.60: 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 R60.0: Lower extremity edema K74.60: Cirrhosis of liver without ascites, unspecified hepaticcirrhosis type Z12.9: Screening of cancer ADDITIONAL CLINICAL INFORMATION: Ordering Provider Reason For Exam: Liver screening. COMPARISON: None. Examination: US ABDOMEN LIMITED Date: 02/23/2022 10:41 AM Indications: K75.81: 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 K74.60: 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 R60.0: Lower extremity edema K74.60: Cirrhosis of liver without ascites, unspecified hepaticcirrhosis type Z12.9: Screening of cancer Comparison: 08/25/2021. Technique: Grayscale and color Doppler ultrasound evaluation of the hepatobiliary system was performed. Findings: Liver visualization score: LI RADS visualization score C (severlimitation in the liver extravasation). Parenchymal morphology: Coarse echotexture with nodular outline. Liver observations:None. Main portal vein: Patent. Flow direction: Diameter: 10 mm. Waveform: Not evaluated. Velocity:Not evaluated. Varices: No varices is seen at the lisette hepatis. Bile duct: CBD measures 5.4 mm. No biliary dilation is seen. Gallbladder:Physiologically distended. Multiple stones are noted. No sonographic evidence of acute cholecystitis. Spleen: Measures 11.5 cm. Focal lesions None. Ascites: None. Other findings:Right kidney measures 10.7 cm. Limited evaluation of the kidney due to poor acoustic window. IMPRESSION: Course echotexture with nodular outline indicating cirrhosis. Nosuspicious hepatic observations. US LI RADS screening/surveillance Category: US LI-RADS score: US-1 Negative. Routine 6 months surveillance ultrasound examinationrecommended. Visualization score: C-severe limitation. Cholelithiasis without ultrasound features of acute cholecystitis. US LI-RADS REFERENCE: US Category: US- 1 negative: No evidence of HCC. US- 2 subthreshold: Observation (S) detected that may warrant short interval US surveillance; observation <10 mm in diameter, not definitely benign. US-3 positive: Observation (S) detected that may warrant multiphase contrast-enhanced imaging; observation equal or more than 10 mm indiameter or new thrombus in the vein. Visualization score: A- no or minimal limitation: limitations, if any, are unlikely to meaningfully affect sensitivity. B- moderate limitations: limitations may obscure small masses. C- severe limitations: Limitations significantly lower sensitivityfor focal liver lesions. 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
--- OUTSIDE RECORDS SUMMARY | 2024-05-24 23:34 | XMS_ITS | Encounter Summary ---
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 . Verbalized understanding of prep instructions including NPO after midnight. Will arrive 1 hour prior to procedure time. 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 Office Visit [facility] - GI [address] [place] [address], [place] [address] Twin Mliler MD [facility] [address] 09/19/2024 2:00 PM CDT Office Visit [facility] - Orthopedic Surgery [address] [place] [address] Larry Alexander MD [address] [facility] [address] [place] [address] documented as of this encounter Goals Goal [...] documented as of this encounter Care Teams Steel Barrel Reamer Relationship Specialty Start Date End Date Unknown, Provider PCP - General 08/23/22 10/12/23 documented as of this encounter
--- OUTSIDE RECORDS SUMMARY | 2024-05-24 23:34 | XMS_ITS | Encounter Summary ---
Author Organization [facility] Address [address] [place] [address] Care Team Providers Care Web Production Assistant Name Role Phone Unknown, Provider Primary Care Provider Unavaila ble Reason for Visit * Auth/Cert (Routine) Specialty Diagnoses / Procedures Referred By Ru t Referred To Contact Diagnoses 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) Procedures ESOPHAGOGASTRODUODENOSCOPY (EGD) DIAGNOSTIC Referral ID Status Reason Start Date Expiration Date Visits Re quested Visits Authorized [id number] 1 1 Encounter Details Date Type Department Care Team (Late st Contact Info) Description 10/07/2022 1:38 PM CDT Anesthesia Event [facility] ENDOSCOPY [address] [place] [phone] Yonas Arias MD [address] [place] [address] Epi Dennison Anes Asst [address] [facility] [place] [phone] Anesthesia Record Procedure Summary Procedure Name Responsible Anesthesiologist Anesthesia Start Time Anesthesia Stop Time EGD w/ patel (Esophagus) Yonas Arias MD 10/07/22 1338 10/07/22 1419 Events Date Time Event Comment 10/07/2022 1240 1338 An Start 1338 Pt In Room 1338 An Start Data 1340 PT Reassessment 1340 Timeout Anesthesia part icipated in timeout at the time documented in the record by nursing. 1340 Induction 1340 Anes Ready 1340 Proc Start 1357 Proc Stop 1357 An Emergence 1414 an stop data 1414 Pt out of Room 1419 An Stop 1419 Electnc Sig This record is electronically signed by the providers listed under staff. Meds Name Total lidocaine PF 2% 100 mg propofol 200mg/20mL injection 50 mg propofol 500 mg/50 mL injection 126.74 m g dexmedeTOMIDine (Precedex) 4 mcg/mL syri nge 20 mcg phenylephrine 100 mcg/mL syringe 600 mcg vasopressin (Vasostrict) 20 Units in 0.9 % NaCl IV 10 mL infusion 4 Units fentaNYL 100 mcg/2ml injection 50 mcg ePHEDrine injection 10 mg NS (0.9% NaCl) 100 mL * Agents Name Insp. N2O Exp. N2O O2 Flow - Auxiliary O2 * Blood No blood administrations on file. Lines, Drains, and Airways Type Details Placement Removal Enteral - 09/15/17; 914; Dr. Guerra; PEG; Abdomen, Left; Well; 10/28/23 (removed long ago); [id number] by Denise Damon RN 10/28/232042 by Sonia Hunter RN Peripheral IV Date: 10/07/22; Time : 1329; Orientation: Left, Posterior; Placed By: Dee; Tolerance: Well 10/07/22 1329 by Sarahi Acuna RN 10/07/22 1455 by Myrna Dunham RN documented in this encounter Social History [...] No 04/29/2019 documented as of this encounter Progress Notes * Yonas Arias MD - 10/07/2022 3:56 PM CDT ANESTHESIA POSTOP EVALUATION NOTE Procedure: EGD w/ patel (Esophagus) Mason Keys is a 71 year old male Patient Vitals for the past 6 hrs: BP Temp Pulse Resp SpO2 Pain Rating Score #1 Pain Scale/Observation Pulse - (SPO2/Cuff) 10/07/22 1251 134/63 -- 76 19 98 % -- -- 79 bpm 10/07/22 1253 -- -- 78 18 98 % -- -- 79 bpm 10/07/22 1300 128/75 -- 73 19 98 % -- -- 74 bpm 10/07/22 1315 94/78 97.8 ??F (36.6 ??C) 70 17 98 % 5 N 66 bpm 10/07/22 1415 117/70 96.8 ??F (36 ??C) 89 24 96 % 0 N 86 bpm 10/07/22 1427 110/64 -- 77 17 92 % -- -- 83 bpm 10/07/22 1430 110/64 -- 79 15 92 % -- -- 80 bpm 10/07/22 1445 106/71 -- 80 19 91 % -- -- 84 bpm 10/07/22 1500 84/65 -- 84 18 93 % 0 N 89 bpm Anesthesia Type: general Pre-op Diagnosis Codes: * 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 (CMS/HCC) [K75.81, K74.60] Mental Status: awake, alert and oriented Respiratory Function: natural Cardiac Function: stable Postop Pain: acceptable to the patient Postop Hydration: adequate Postop Nausea: none Assessment: no apparent anesthetic complications, patient tolerated procedure well and no evidence of recall Patient Disposition: Release from Anesthesia Care NOTABLE EVENTS: No notable events documented. * Yonsa Arias MD - 10/07/2022 8:23 AM CDT ANESTHESIA PREOPERATIVE EVALUATION NOTE Procedure: EGD w/ jorge (Esophagus) Vitals: No data found. LMP: No LMP for male patient. OB Status: unknown ANESTHESIA PRE-EVALUATION NOTE History of Present Illness: Procedure Information Case: [id number] Date/Time: 10/07/22 1300 Procedure: EGD w/ patel (Esophagus) Anesthesia type: MAC Diagnosis: 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 (CMS/HCC) (K75.81, K74.60) Pre-op diagnosis: 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 (CMS/HCC) (K75.81, K74.60) Location: [facility] ENDO ROOM 2 / [facility] Endoscopy Providers: Jackelyn Patel MD Physical Exam: Orientation X3 Airway/Mallampati Score: II Mouth Opening Distance: 2.5 fingerwidths Neck ROM: full TM Distance: > 3 FB Heart: normal - S1 S2 Lungs: clear to ausculation bilaterally Other Findings: Reviewed available information , notes and relevant labs, diagnostic test results. ANESTHESIA PLAN ASA Score: 4 NPO Status: No liquids within 2 hours and No solids for 8 hours Anesthesia Plan: TIVA Planned Induction: intravenous Planned Postop Destination: PACU Anesthetic plan was discussed with: patient Anesthetic Plan discussion was: Consented The patient's procedural Anesthetic Plan was discussed with the behavioral modification assistant and CLOTH FINISHING RANGE OPERATOR. Overall additional findings/comments: Reviewed available information , notes and relevant labs, diagnostic test results. Discussed anesthetic plan option / risks and benefits. Questions answered. Attending Anesthesiologist Attestation I have reviewed the chart I have reviewed medications I have interviewed and examined the patient I agree with the documentation and have dicussed the anesthesia plan w/ the Resident, AA, CLOTH FINISHING RANGE OPERATOR I discussed risks of anesthesia including, chipped or missing tooth, sore throat, and, although rare, possible PA, CVA, cardiopulmonary event, thromboembolic events, prolonged mechanical ventilation and . Pt agrees with anesthetic plan, questions answered. Patient was seen prior to patient whee ling back to procedural area or operating room. Yonas Arias MD. BMI, Height, Weight Tobacco History Estimated body mass index is 37.1 kg/m?? as calculated from the following: Height as of 08/23/22: 1.803 m (5' 11 ). Weight as of 08/23/22: 120.7 kg (266 lb). Social History Tobacco Use Smoking Status Former ??? Types: Cigarettes ??? Quit date: 06/06/1981 ??? Years since quittin.3 Smokeless Tobacco Never Vaping Use Vaping Status Never Used Alcohol History Drug History Social History Substance and Sexual Activity Alcohol Use No Social History Substance and Sexual Activity Drug Use No Outpatient Medications: Inpatient Medications: No outpatient medications have been marked as taking for the 10/07/22 encounter (Hospital Encounter). No current facility-administered medications for this encounter. Allergies: Allergies Allergen Reactions ??? Penicillins Skin Reactions and Swelling ??? Levaquin [Levofloxacin] Eye Itching red around the eyes , puffy, itchy ??? Green [Peppers] GI Discomfort Green and red peppers ??? Scopace [Scopolamine] Other and [employer] LE[employer] B[employer]ER Dysfunction delirium ??? Tobramycin Eye Itching red around the eyes, puffy, itchy Relevant Problems No relevant active problems Problem List: Patient Active Problem List Diagnosis Date Noted ??? Benign prostatic hyperplasia without lower urinary tract symptoms 06/06/2019 Priority: Not Prioritized ??? Infection of right prosthetic hip joint ([facility]) 02/02/2019 Priority: Not Prioritized ??? 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 ([facility]) 08/17/2018 Priority: Not Prioritized US 05/2018, no lesions EGD 2017, no varices 08/26/20 Fibroscan not technically possible. ??? Venous stasis dermatitis of both lower extremities 02/25/2017 Priority: Not Prioritized ??? Hypoxemia 09/06/2017 ??? Pleural effusion on left 08/29/2017 ??? Methicillin resistant Staphylococcus aureus infection 08/29/2017 ??? Extradural and subdural abscess, unspecified 08/29/2017 ??? Acute respiratory failure with hypoxia ([facility]) 08/29/2017 ??? Discitis of lumbar region 08/29/2017 ??? Acute kidney failure ([facility]) 08/29/2017 ??? Sepsis ([facility]) 08/27/2017 ??? Severe sepsis without septic shock (CODE) ([facility]) 08/27/2017 ??? Acute embolism and thrombosis of deep vein of lower extremity ([facility]) 07/25/2017 ??? Bacteremia 07/25/2017 ??? Vitamin D deficiency 07/08/2017 ??? Local infection of skin and subcutaneous tissue 04/18/2017 ??? Unspecified staphylococcus as the cause of diseases classified elsewhere 04/18/2017 ??? Chronic atrial fibrillation (CMS/HCC) 04/06/2017 ??? Other specified anemias 04/06/2017 ??? [...] ??? S/P PICC central line placement 02/13/2019 [facility] VAT R basilic ??? Seizures (CMS/HCC) ??? Squamous cell carcinoma ??? VRE (vancomycin resistant enterococcus) culture positive 04/29/2019 rectal swab+ Surgical History: Past Surgical History: Procedure Laterality Date ??? Cataract Removal Bilateral ??? ENDOSCOPY, UPPER N/A 09/15/2017 N/A; ESOPHAGOGASTRODUODENOSCOPY (EGD) DIAGNOSTIC ??? ENDOSCOPY, UPPER N/A 07/03/2020 N/A; ESOPHAGOGASTRODUODENOSCOPY (EGD) DIAGNOSTIC--PATEL ??? EXCISION BURSA Right 02/08/2019 Right; EXCISION BURSA (BURSECTOMY) TROCHANTERIC/HIP ??? GENERAL SURGERY PROCEDURE Right 02/04/2019 Right; PLACEMENT WOUND VAC ??? GENERAL SURGERY PROCEDURE Right 05/02/2019 Right; PLACEMENT WOUND VAC ??? HIP ARTHROPLASTY, REVISION Right 02/08/2019 Right; REVISION HIP ARTHROPLASTY BOTH COMPONENT ??? HX JOINT REPLACEMENT ??? HX JOINT REPLACEMENT right hip 2005, left hip 2009 ??? INCISION AND DRAINAGE Right 02/04/2019 Right; IRRIGATION AND DEBRIDEMENT WOUND HIP ??? INCISION AND DRAINAGE Right 05/02/2019 Right; IRRIGATION AND DEBRIDEMENT RIGHT HIP ABSCESS ??? Tracheostomy N/A 09/13/2017 N/A; TRACHEOSTOMY CELL RELINER Status: No LMP for male patient. unknown OB History No obstetric history on file. Covid Vaccine: Lab Results: Recent Labs Component Name 08/23/222023 WBC 7.9 RBC 4.71 HCT 44.3 HGB 14.1 PLTCOUNT 194 MCV 94.1 MCH 29.9 MCHC 31.8 MPV 12.4 Recent Labs Component Name 08/23/22202308/10/22 1259 SODIUM - 141 POTASSIUM 4.6* 5.1 CALCIUM 10.3* 10.1 CHLORIDE - 101 CO2 26 29 GLUCOSE 113 91 BUN 26 30* CREATININE 1.60* 1.74* Recent Labs Component Name 08/10/22 1259 PT 10.9 INR 1.1 No results found for requested labs within last 120 days. Recent Labs Result Component Current Result Albumin 3.9 (08/10/2022) Alkaline Phosphatase 113 (08/23/2022) ALT 27 (08/23/2022) Anion Gap 18 (08/23/2022) AST 24 (08/23/2022) Bilirubin Total 0.9 (08/10/2022) eGFR by CKD-EPI 45 (L) (08/23/2022) documented in this encounter Miscellaneous Notes * Anesthesia Transfer of Care - Epi Dennison Anes Asst - 10/07/2022 2:19 PM CDT ANESTHESIA TRANSFER OF CARE NOTE Today's Date: 10/07/2022 Date of : 1950 Patient: Mason Keys Procedure(s) with comments: EGD w/ jorge - duodenal ulcer - gold probe/ clip A. gastric biopsies r/o h. pylori PHG, no varices Surgeon(s): Primary: Jackelyn Patel MD Preop Diagnosis: Pre-op Diagnois: * 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 (CMS/HCC) [K75.81, K74.60] Pre-op Meds (From admission, onward) Start Stop Status Route Frequency Ordered 10/07/22 1300 0.9% NaCl infusion -- Dispensed IV CONTINUOUS 10/07/22 1255 10/07/22 1334 0.9% NaCl infusion -- Sent IV CONTINUOUS PRN 10/07/22 1343 10/07/22 1255 0.9% NaCl injection 3 mL -- Dispensed IK PRE-PROCEDURE MULTIPLE 10/07/22 1255 10/07/22 1340 dexmedeTOMIDine (Precedex) injection -- Sent IV PRN 10/07/22 1343 10/07/22 1411 ePHEDrine injection -- Sent IV PRN 10/07/22 1412 10/07/22 1340 fentaNYL (PF) (Sublimaze) injection -- Sent IV PRN 10/07/22 1349 10/07/22 1340 lidocaine HCl (PF) (Xylocaine MPF) 2 % injection -- Sent IV PRN 10/07/22 1343 10/07/22 1343 phenylephrine 100 mcg/mL injection -- Sent IV PRN 10/07/22 1343 10/07/22 1341 propofol (Diprivan) infusion -- Sent IV CONTINUOUS PRN 10/07/22 1343 10/07/22 1340 propofol (Diprivan) injection -- Sent IV PRN 10/07/22 1343 10/07/22 1348 vasopressin (Vasostrict) 20 Units in 0.9% NaCl IV 10 mL infusion -- Sent IV CONTINUOUS PRN 10/07/22 1348 Post-op Diagnosis: * 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 (CMS/HCC) [K75.81, K74.60] . Allergies Allergen Reactions ??? Penicillins Skin Reactions and Swelling ??? Levaquin [Levofloxacin] Eye Itching red around the eyes , puffy, itchy ??? Green [Peppers] GI Discomfort Green and red peppers ??? Scopace [Scopolamine] Other and [employer]ER Dysfunction delirium ??? Tobramycin Eye Itching red around the eyes, puffy, itchy Vitals: Patient Vitals for the past 3 hrs: Temp Pain Rating Score #1 10/07/22 1315 97.8 ??F (36.6 ??C) 5 Lines, Drains, and Airways Type Details Placement Removal Enteral - 09/15/17; 914; Dr. Guerra; PEG; Abdomen, Left; Well 09/15/17914 by Denise Damon, DONTAE Peripheral IV Date: 10/07/22; Time: 1328; Orientation: Left, Posterior; Location: Hand; Placed By: Dee; Gauge: 22 Gauge ; Locals: None; Tolerance: Well 10/07/22 1329 by Sarahi Acuna RN Intraprocedure I/O Totals None Patient Transfer Location: Endo Recovery Transport Airway: [...] of report from the receiving PACUteam. Negar Montalvo Assmark documented in this encounter Plan of Treatment Upcoming Encounters Date Type Department Care Team (Late st Contact Info) Description 07/09/2024 12:30 PM FLOWERS SALESPERSON Office Visit [facility] - GI [address] [place] [address], [place] [address] Twin Miller MD [address] [place] [address] [place] [address] 09/19/2024 2:00 PM CDT Office Visit [facility] - Orthopedic Surgery [address] [facility] [place] [address] Larry Alexander MD [address] [place] [address] documented as of this encounter Goals Goal [...] NaCl infusion Intravenous, CONTINUOUS PRN, Starting on Kellen 10/07/22 at 1334, Until Kellen 10/07/22 at 1419, Anesthesia Intra-op $ New Bag/Syringe 10/07/2022 1:34 PM CDT dexmedeTOMIDine (Precedex) injection Intravenous, PRN, Starting on Kellen 10/07/22 at 1340, Until Kellen 10/07/22 at 1419, Anesthesia Intra-op $ Given 10/07/2022 1:43 PM CDT 8 mcg $ Given 10/07/2022 1:40 PM CDT 12 mcg ePHEDrine injection Intravenous, PRN, Starting on Kellen 10/07/22 at 1411, Until Kellen 10/07/22 at 1419, Anesthesia Intra-op $ Given 10/07/2022 2:11 PM CDT 10 mg fentaNYL (PF) (Sublimaze) injection Intravenous, PRN, Starting on Kellen 10/07/22 at 1340, Until Kellen 10/07/22 at 1419, Anesthesia Intra-op $ Given 10/07/2022 1:42 PM CDT 25 mcg $ Given 10/07/2022 1:40 PM CDT 25 mcg lidocaine HCl (PF) (Xylocaine MPF) 2 % injection Intravenous, PRN, Starting on Kellen 10/07/22 at 1340, Until Kellen 10/07/22 at 1419, Anesthesia Intra-op $ Given 10/07/2022 1:40 PM CDT 100 mg phenylephrine 100 mcg/mL injection Intravenous, PRN, Starting on Kellen 10/07/22 at 1343, Until Kellen 10/07/22 at 1419, Anesthesia Intra-op $ Given 10/07/2022 2:01 PM CDT 200 mcg $ Given 10/07/2022 1:46 PM CDT 300 mcg $ Given 10/07/2022 1:43 PM CDT 100 mcg propofol (Diprivan) infusion Intravenous, CONTINUOUS PRN, Starting on Kellen 10/07/22 at 1341, Until Kellen 10/07/22 at 1419, Anesthesia Intra-op Rate Change 10/07/2022 1:47 PM CDT 75 mcg/kg/min 54.315 mL/hr $ New Bag/Syringe 10/07/2022 1:41 PM CDT 100 mcg/kg/min 72 .42 mL/hr propofol (Diprivan) injection Intravenous, PRN, Starting on Kellen 10/07/22 at 1340, Until Kellen 10/07/22 at 1419, Anesthesia Intra-op $ Given 10/07/2022 1:40 PM CDT 50 mg vasopressin (Vasostrict) 20 Units in 0.9% NaCl IV 10 mL infusion Intravenous, CONTINUOUS PRN, Starting on Kellen 10/07/22 at 1348, Until Kellen 10/07/22 at 1419, Anesthesia Intra-op $ Bolus New Bag 10/07/2022 1:56 PM CDT 2 Units $ New Bag/Syringe 10/07/2022 1:48 PM CDT 2 Units documented in this encounter Additional Health Concerns Infection Onset Date Last Indicated Resolved Time 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 Care Teams Web Production Assistant Relationship Specialty Start Date End Date Unknown, Provider PCP - General 08/23/22 10/12/23 documented as of this encounter
--- OUTSIDE RECORDS SUMMARY | 2024-05-24 23:34 | XMS_ITS | Encounter Summary ---
Author Organization [facility] Address [address] [facility] [place] [address] Care Team Providers Care Reimbursement Liaison Name Role Phone Briana Medeiros MD Primary Care Provider [phone] Encounter Details Date Type Department Care Team (Late Contact Info) Description 02/09/2022 Orders Only [facility] GI [address] [place] [address] Jackelyn Licona MD [address] [place] [address] Social History Tobacco Use Types Packs/Day Years [...] No 04/29/2019 documented as of this encounter Plan of Treatment Upcoming Encounters Date Type Department Care Team (Late st Contact Info) Description 07/09/2024 12:30 PM CUSTOMER SERVICE MANAGER Office Visit [facility] - GI [address] [facility], [place] [address] Twin Miller MD [facility] [facility] 2L [place] [address] 09/19/2024 2:00 PM CDT Office Visit [facility] - Orthopedic Surgery [address] [facility] [place] [address] Larry Alexander MD [address] [facility] [address] [place] [address] documented as of this encounter Goals Goal [...] Procedure Name Priority Date/Time Associated Diagnosis Comments ALPHA FETOPROTEIN BLOOD TUMOR MARKER 02/09/2022 9:21 AM CDT CBC W AUTO DIFFERENTIAL 02/09/2022 9:21 AM CDT COMPREHENSIVE METABOLIC PANEL 02/09/2022 9:21 AM CDT PT-INR 02/09/2022 9:15 AM CDT documented in this encounter Results * ALPHA FETOPROTEIN BLOOD TUMOR MARKER (02/09/2022 9:21 AM CDT) Pathologist [facility] Alpha-Fetoprotei n Tumor Marker 2.3 <6.1 ng/mL [facility] Comment: This test was performed using the Flex Eleno chemiluminescent method. Values obtained from different assay methods cannot be used interchangeably. AFP levels, regardless of value, should not be interpreted as absolute evidence of the presence or absence of disease. REPORT COMMENT: FASTING:YES Test Performed at: [facility] [address] ??[phone] LAURA REYES MD 02/09/2022 9:21 AM CDT 02/09/2022 9:23 AM CDT Jackelyn Licona MD LAB - CHEMISTRY ROYCE KLINE [facility] [address] [place] [address] * (ABNORMAL) CBC WITH DIFFERENTIAL (02/09/2022 9:21 AM CDT) [facility] White Blood Cell Count 8.3 3.8 - 10.8 Thousand/u L [facility] RBC 4.51 4.20 - 5.80 Million/uL [facility] Hemoglobin 13.8 13.2 - 17.1 g/dL [facility] Hematocrit 42.0 38.5 - 50.0 % [facility] MCV 93.1 80.0 - 100.0 fL [facility] MCH 30.6 27.0 - 33.0 pg [facility] MCHC 32.9 32.0 - 36.0 g/dL [facility] RDW 12.9 11.0 - 15.0 % [facility] Platelet Count 111(L) 140 - 400 Thousand/u L [facility] MPV 12.9(H) 7.5 - 12.5 fL [facility] Neutrophil Absolute 5868 1500 - 7800 cells/uL [facility] Lymphocytes Absolute 1054 850 - 3900 cells/uL [facility] Absolute Monocytes 813 200 - 950 cells/uL [facility] Eosinophils Absolute 506(H) 15 - 500 cells/uL [facility] Basophils Absolute 58 0 - 200 cells/uL [facility] Granulocytes % 70.7 % [facility] Lymphocytes % 12.7 % [facility] Monocytes % 9.8 % [facility] Eosinophils % 6.1 % [facility] Basophils % 0.7 % [facility] Comment: Test Performed at: [facility] [address] [place] ??[phone] ROSS LOPEZ DO,MPH 02/09/2022 9:21 AM CDT 02/09/2022 9:23 AM CDT Jackelyn Licona MD LAB - HEMATOLOGY ORD ERABLES [facility] [address] [place] [address] * (ABNORMAL) COMPREHENSIVE METABOLIC PANEL (02/09/2022 9:21 AM CDT) Glucose 129(H) 65 - 99 mg/dL [facility] Comment: ? Fasting reference interval For someone without known diabetes, a glucose value >125 mg/dL indicates that they may have diabetes and this should be confirmed with a follow-up test. BUN 34(H) 7 - 25 mg/dL [facility] Creatinine 1.97(H) 0.70 - 1.28 mg/dL [facility] eGFR by Cystatin C 35(L) > OR = 60 mL/min/1.7 3m2 [facility] Comment: The eGFR is based on the CKD-EPI 2020 equation. To calculate the new eGFR from a previous Creatinine or Cystatin C result, go to https://www.kidney.org/professionals/ kdoqi/gfr%5Fcalculator BUN/Creatinine Ratio 17 6 - 22 (calc) [facility] Sodium 142 135 - 146 mmol/L [facility] Potassium 4.4 3.5 - 5.3 mmol/L [facility] Chloride 103 98 - 110 mmol/L [facility] CO2 27 20 - 32 mmol/L [facility] Calcium 9.6 8.6 - 10.3 mg/dL [facility] Protein Total 6.7 6.1 - 8.1 g/dL [facility] Albumin 4.0 3.6 - 5.1 g/dL [facility] Globulin Total 2.7 1.9 - 3.7 g/dL (calc) [facility] Albumin/Globulin Ratio 1.5 1.0 - 2.5 (calc) [facility] Bilirubin Total 0.7 0.2 - 1.2 mg/dL [facility] Alkaline Phosphatase 88 35 - 144 U/L [facility] AST 23 10 - 35 U/L [facility] ALT 24 9 - 46 U/L [facility] Comment: Test Performed at: [facility] [address] [place] ??[phone] ROSS LOPEZ DO,MPH 02/09/2022 9:21 AM CDT 02/09/2022 9:23 AM CDT Jackelyn Licona MD LAB - CHEMISTRY ORDE RAISA Performing Organization Address [facility] Co de Phone Number [address] [address] * PT-INR (02/09/2022 9:15 AM CDT) INR 1.1 [facility] Comment: Reference Range ? 0.9-1.1 Moderate-intensity Warfarin Therapy 2.0-3.0 Higher-intensity Warfarin Therapy ?? 3.0-4.0 PT 10.9 9.0 - 11.5 sec [facility] Comment: For additional information, please refer to http://education.LightSquared/faq/UNJ192 (This link is being provided for informational/ educational purposes only.) Test Performed at: [facility] ??[phone] DORIAN CRUZ MD 02/09/2022 9:15 AM CDT 02/09/2022 9:17 AM CDT Jackelyn Licona MD LAB - COAGULATION OR DERABLES Performing Organization Address [facility] Co de Phone Number [address] [address] documented in this encounter Visit Diagnoses Not on filedocumented in this encounter Additional Health Concerns Infection Onset Date Last Indicated Resolved Time 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 Care Teams Reimbursement Liaison Relationship Specialty Start Date End Date Briana Medeiros MD [address] [place] [address] PCP - General 02/15/18 02/22/22 documented as of this encounter
--- OUTSIDE RECORDS SUMMARY | 2024-05-24 23:34 | XMS_ITS | Encounter Summary ---
Author Organization [facility] Address [address] [facility] [place] [address] Care Team Providers Care Care Transitions Nurse Name Role Phone Unknown, Provider Primary Care Provider Unavaila ble Reason for Visit * Reason Comments Refill Request Encounter Details Date Type Department Care Team (Late st Contact Info) Description 11/22/2022 Refill [facility] - [address] [phone] Jackelyn Licona MD [address] [place] [address] Refill Request Social History Tobacco Use Types [...] st Contact Info) Description 07/09/2024 12:30 PM THIRD HELPER Office Visit [facility] GI [address] [facility], [place] [address] Twin Miller MD [address] [facility] [address]L [place] [address] 09/19/2024 2:00 PM CDT Office Visit [facility] - Orthopedic Surgery [address] [facility] [place] [address] Larry Alexander MD [address] [facility] [address] [place] [address] documented as of this encounter Goals Goal [...] documented as of this encounter Care Teams Care Transitions Nurse Relationship Specialty Start Date End Date Unknown, Provider PCP - General 08/23/22 10/12/23 documented as of this encounter
--- OUTSIDE RECORDS SUMMARY | 2024-05-24 23:34 | XMS_ITS | Encounter Summary ---
Author Organization [facility] Address [address] [facility] [place] [address] Care Team Providers Care Video Arcade Manager Name Role Phone Unknown, Provider Primary Care Provider Unavaila ble Reason for Referral * Radiology Services (Routine) - Closed Specialty Diagnoses / Procedures Referred By Contac t Referred To Contact Ultrasound Diagnoses 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) Procedures US ABDOMEN LIMITED Kimberly Lacy PA-C [address] [facility] [address] [facility] [place] [address] [facility] Us [address] [place] [address] Referral ID Status Reason Start Date Expiration Date Visits Re quested Visits Authorized [id number] Closed 02/23/2022 02/23/2023 1 1 Reason for Visit * Radiology Services (Routine) - Closed Specialty Diagnoses / Procedures Referred By Contac t Referred To Contact Ultrasound Diagnoses 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) Procedures US ABDOMEN LIMITED Kimberly Lacy PA-C [address] [facility] [address] [place] [address] [facility] [address] [place] [address] Referral ID Status Reason Start Date Expiration Date Visits Re quested Visits Authorized [id number] Closed 02/23/2022 02/23/2023 1 1 Encounter Details Date Type Department Care Team (Latest Contact Info) Description 08/23/2022 10:51 AM CDT - 08/23/2022 8:27 PM CDT Hospital Encounter [facility] [address] [place] [address] Kimberly Lacy PA-C [address] [facility] [address] [place] [phone] Discharge Disposition: Home or Self Care Social [...] capsules by mouth 2 times daily 10/12/2023 nystatin 868739 UNIT/GM cream - BACITRACIN ointment 50:50 CREA Apply to affected area 2 times daily as needed 10/12/2023 omeprazole (PRILOSEC) 40 MG capsule Take [...] as needed. 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 Office Visit [facility] - GI [address] [place] [address], [place] [address] Twin Miller MD [address] [place] [address] [place] [address] 09/19/2024 2:00 PM CDT Office Visit [facility] - Orthopedic Surgery [facility] [place] [phone] Larry Alexander MD [address] [place] [address] [address] [place] [address] documented as of this encounter Goals Goal [...] Associated Diagnosis Comments US ABDOMEN LIMITED Routine 08/23/2022 11 :36 AM CDT 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) documented in this encounter Results * US ABDOMEN LIMITED (08/23/2022 11:36 AM CDT) Anatomical Region Laterality Modality Abdomen Ultrasound 08/23/2022 11:2 9 AM CDT Impressions 08/23/2022 11:58 AM CDT Impression: Liver Visualization Score B: Moderate limitations. US-1 Negative. Repeat surveillance US in 6 months. Hepatic cirrhosis without evidence of portal hypertension. Cholelithiasis without evidence of acute cholecystitis. REFERENCE: US LI-RADS categories: US Category: ??US [...] significantly lower sensitivity for focal liver lesions. Report drafted by River Hensley (resident). > Dictated by River Hensley (Assisted Living Coordinator) 08/23/2022 11:56 AM I, BLAISE BOWENS MD have personally reviewed and interpreted this examination/study. > Interpreting Provider: BLAISE BOWENS MD on 08/23/2022 11:58 AM Narrative 08/23/2022 11:58 AM CDT PROCEDURE: ??US ABDOMEN LIMITED, DATE/TIME OF EXAM: ??08/23/2022 10:51 AM, LOCATION ??[facility] INDICATION: K75.81: 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 (CMS/HCC) K74.60: 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 (CMS/HCC) COMPARISON: Multiple prior abdominal ultrasounds most recently dated 02/23/2022. Findings Liver Visualization Score: Moderate limitations in [...] are seen within the gallbladder without pericholecystic fluid. The gallbladder wall measures 2 mm in thickness. Sonographic Maria's sign is negative. Ascites: No ascites is present. Spleen: The spleen measures 12.2 cm in length. Pancreas: The visible pancreas is normal in echogenicity. Right Kidney: The right kidney measures 10.2 cm in length. Limited views of the right kidney reveal no evidence of nephrolithiasis or hydronephrosis. ??No discrete mass identified. Procedure Note Blaise Bowens MD - 08/23/2022 PROCEDURE: US ABDOMEN LIMITED, DATE/TIME OF EXAM: 08/23/2022 10:51 AM, LOCATION [facility] INDICATION: K75.81: 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 (CMS/HCC) K74.60: 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 (CMS/HCC) COMPARISON: Multiple prior abdominal ultrasounds most recently dated 02/23/2022. Findings Liver Visualization Score: Moderate limitations in [...] Gallstones are seen within the gallbladder without pericholecysticfluid. The gallbladder wall measures 2 mm in thickness. Sonographic Maria'ssign is negative. Ascites: No ascites is present. Spleen: The spleen measures 12.2 cm in length. Pancreas: The visible pancreas is normal in echogenicity. Right Kidney: The right kidney measures 10.2 cm in length. Limited views of the right kidney reveal no evidence of nephrolithiasis or hydronephrosis. No discrete mass identified. Impression: Liver Visualization Score B: Moderate limitations. US-1 Negative. Repeat surveillance US in 6 months. Hepatic cirrhosis without evidence of portal hypertension. Cholelithiasis without evidence of acute cholecystitis. REFERENCE: US LI-RADS categories: US Category: US [...] Limitations significantly lower sensitivityfor focal liver lesions. Report drafted by River Hensley (resident). > Dictated by River Hensley (Assisted Living Coordinator) 08/23/2022 11:56 AM IBLAISE MD have personally reviewed and interpreted this examination/study. 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
--- OUTSIDE RECORDS SUMMARY | 2024-05-24 23:34 | XMS_ITS | Encounter Summary ---
Author Organization [facility] Address [address] [facility] [place] [address] Care Team Providers Care Parliamentary Archivist Name Role Phone Unknown, Provider Primary Care Provider Unavaila ble Reason for Referral * Radiology Services (Routine) - Closed Specialty Diagnoses / Procedures Referred By Contac t Referred To Contact Ultrasound Diagnoses Liver cirrhosis secondary to MICHAUD (HCC) Lower extremity edema Cirrhosis of liver without ascites, unspecified hepatic cirrhosis type (HCC) Procedures US ABDOMEN LIMITED Jackelyn Licona MD [address] [place] [address] [facility] [address] [place] [address] Referral ID Status Reason Start Date Expiration Date Visits Re quested Visits Authorized [id number] Closed 08/23/2022 08/23/2023 1 1 Reason for Visit * Reason Comments Michaud F/u Encounter Details Date Type Department Care Team (Late st Contact Info) Description 08/23/2022 12:30 PM CDT Office Visit [facility] GI [address] [facility], [place] [address] Kimberly Lacy PA-C [address] [place] [address] [facility] [place] [address] Jackelyn Licona MD [address] [place] [address] Liver cirrhosis secondary to MICHAUD (HCC) (Primary Dx); Lower extremity edema; Cirrhosis of liver without ascites, unspecified hepatic cirrhosis type (HCC) Social History Tobacco Use Types [...] Sign Reading Time Taken Comments Blood Pressure 127/66 08/23/2022 12:04 PM CDT Pulse 95 08/23/2022 12:04 PM CDT Temperature 36.6 ??C (97.9 ??F) 08/23/2022 12:04 PM C DT Respiratory Rate 20 08/23/2022 12:04 PM CDT Oxygen Saturation 99% 08/23/2022 12:04 PM CDT Inhaled Oxygen Concentration - - Weight 120.7 kg (266 lb) 08/23/2022 12:04 PM CDT Height 180.3 cm (5' 11 ) 08/23/2022 12:04 PM CDT Body Mass Index 37.1 08/23/2022 12:04 PM CDT documented in this encounter Functional Status [...] as of this encounter Progress Notes * Jackelyn Licona MD - 08/23/2022 12:22 PM CDT [facility] Jackelyn Licona MD Referring Provider: Provider Unknown PCP: Napoleon Birmingham MD Interval history and subjective concerns: I had the pleasure of meeting Mason Keys at the [facility] on 08/23/2022. This is a 71 year old male with history of MICHAUD and cirrhosis. -History of MRSA bacteremia 1 year ago c/b empyema and epidural abscess. History of DM2, CAD, DVT, and Afib. -Patient was diagnosed with cirrhosis in 2018 based on imaging. Patient's liver disease is complicated by: -Ascites: No ascites. No prior LVP. Was previously on lasix, now on bumex 0.5mg bid. Also, on spironolactone 12.5mg daily. On diuretics for LE edema -Varices: No bleeding episodes. Last EGD 06/2020 without varices. -Encephalopathy: No symptoms of HE. Interval events: Since last visit, he was admitted to [facility] x 2. First admission was for COPD exacervation. Second admission (discharged last Tuesday) was for LE edema L>R, treated as cellulitis. Since discharge, his right leg has started to swell. Alcohol: Does not drink alcohol. Tobacco: He did smoke from 6435-3968. Chronic medical problems: Afib on eliquis CAD, NSTEMI age 30 COPD HTN VALENTINA on BIPAP Review of Systems: Constitutional: negative for fevers, chill Eyes: negative for visual disturbance ENT: negative for hearing changes Respiratory: positive for shortness of breath Cardiovascular: negative for chest pain Gastrointestinal: negative for nausea or vomiting Genitourinary:negative for dysuria Hematologic/lymphatic: negative for easy bruising Musculoskeletal: Joint pain in hands Neurological: negative for headaches Exam: Wt Readings from Last 3 Encounters: 08/23/22 120.7 kg (266 lb) 02/23/22 120.2 kg (265 lb) 08/17/21 121.1 kg (267 lb) BP 127/66 (BP SITE: LEFT ARM, BP POSITION: SITTING) Pulse 95 Temp 97.9 ??F (36.6 ??C) (Oral) Resp 20 Ht 1.803 m (5' 11 ) Wt 120.7 kg (266 lb) SpO2 99% General appearance: normal, alert, no distress, appears stated age Eyes: conjunctivae/corneas clear. Nose: Nares normal. Septum midline. Mucosa normal. Lungs: clear to auscultation bilaterally Heart: RRR, normal S1 and S2, no murmur Abdomen: soft, no masses palpable, non-tender, non-distended, bowel sounds normal Extremities: no ulcers, well perfused, 1+ LLE edema, 2-3+ RLE edema, both LE erythematous Skin: No rashes or lesions, no jaundice Neuro: Appropriate, oriented x 3, no asterixis Relevant Laboratories: Recent Labs Component Name 08/10/22 1259 05/13/22 1141 02/09/22 0921 08/03/21 1025 01/09/21 1055 09/05/20 1325 08/20/20 0000 08/20/19 1527 05/06/19 0231 05/05/19 0215 05/04/19 0307 02/03/19 0106 09/19/17 0243 09/18/17 0003 09/17/17 0433 09/07/17 0428 09/06/17 1621 09/06/17 1211 09/06/17 1157 09/04/17 0447 09/03/17 0431 07/29/17 1336 07/29/17 1130 BUN 30* 27* 34* 41* 50* 27* 27* - 22 20 19 - 26 25 19 - - - 21 11 13 - - CREATININE 1.74* 1.84* 1.97* 1.89* 2.07* 1.46* - - 1.15 0.96 1.12 - 0.6 0.6 0.6 - - - 0.7 0.6 0.6 -- NA - - - - - - - - - - - - 138 140 139 - - - 143 141 140 - - POTASSIUM 5.1 4.6 4.4 4.7 4.4 4.2 3.7 - 3.2* 3.1* 3.2* - 4.9* 3.4* 3.6 - - - 3.8 4.9* 4.4 - - K - - - - - - - - - - - - - - - - 4.2 3.8 - - - - 3.3* CL - - - - - - - - - - - - 98 95* 96* - - - 108* 107 107 - - CO2 29 28 27 27 26 28 27 - 26 25 27 - 34* 35* 32* - - - 20* 27 27 - - CALCIUM 10.1 9.7 9.6 9.6 9.7 9.9 9.6 - 9.2 9.1 9.1 - 9.1 9.0 8.8 - - - 8.5 8.4 8.6 - - PROT - - - - - - - - - - - - - - - - - - 6.2 5.3* 5.4* - - ALB - - - - - - 3.7 - - - - - - - - - - - 1.8* 1.5* 1.5* - - TBILI - - - - - - - - - - - - - - - - - - 0.3 0.3 0.3 - - ALKPHOS 97 91 88 106 119 126 113 - - - - - - - - - - - 204* 190* 212* - - ALT 26 20 24 28 23 24 19 - - - - - - - - - - - 10 12 12 - - AST 18 17 23 20 18 20 14 - - - - - - - - - - - 21 27 26 - - ANIONGAP - - - - - - - - 11 10 8 - 11 13 15 - - - 19* 12 10 - - BCR - - - - - - - - - - - - 43* 42* 32* - - - 30* 18 22 - - OSMOLALITY - - - - - - - - - - - - 294 296 291 - - - 303* 291 293 - - AGRATIO - - - - - - - - - - - - - - - - - - 0.4* 0.4* 0.4* - - EGFR - - - 35* 31* 48* 54* - >60 >60 >60 - >60 >60 >60 - - - >60 >60 >60- - EGFRAFR - - - 40* 36* 55* - - >60 >60 >60 - - - - - - - - - - - - - = values in this interval not displayed. Recent Labs Component Name 08/10/22 1259 05/13/22 1141 02/09/22 0921 WBC 10.4 8.5 8.3 HGB 13.7 13.7 13.8 HCT 42.1 41.9 42.0 PLTCOUNT 120* 136* 111* Recent Labs Component Name 08/10/22 1259 05/13/22 1141 02/09/22 0915 INR 1.1 1.1 1.1 MELD-Na score: 13 at 08/10/2022 12:59 PM MELD score: 13 at 08/10/2022 12:59 PM Calculated from: Serum Creatinine: 1.74 mg/dL at 08/10/2022 12:59 PM Serum Sodium: 141 mmol/L (Using max of 137 mmol/L) at 08/10/2022 12:59 PM Total Bilirubin: 0.9 mg/dL (Using min of 1 mg/dL) at 08/10/2022 12:59 PM INR(ratio): 1.1 at 08/10/2022 12:59 PM Age: 71 years Chronic liver disease workup: Component Latest Ref Rng & Units 06/02/2018 07/17/2017 07/15/2017 Transferrin 174 - 382 mg/dL 126 (L) Transferrin Saturation % 16 - 50 % 9 (L) Speckled Pattern 1:80 Note Comment Ferritin 22 - 275 ng/mL 947 (H) 1,459 (H) Iron 50 - 175 mcg/dL 14 (L) Ceruloplasmin 20 - 60 mg/dL 31 F-Actin Antibody IgG 0.0 - 19.9 Units 4.6 EDITH IFA Positive (A) Liver-Kidney Microsomal Antibody 0.0 - 20.0 Units <1.0 Mitochondrial M2 Antibody U <20.0 Component Latest Ref Rng & Units 07/14/2017 Hepatitis B Virus Surface Antibody Non-reactive Non-reactive Hepatitis B Surface Antibody Quantitative <8.0 mIU/mL 0.2 Transferrin 174 - 382 mg/dL 154 (L) Transferrin Saturation % 16 - 50 % 5 (L) Awzcb-1-Jvbozsfblis 90 - 200 mg/dL 223 (H) Phenotype (PI) Comment Hepatitis C Antibody Non-reactive Non-reactive HBc Antibody Total Non-reactive Non-reactive Hepatitis B Virus Surface Antigen Non-reactive Non-reactive Last endoscopies: EGD: -09/15/17: PEG placement. No esophageal varices. -07/03/20: No esophageal or gastric varices seen. Colonoscopy: -Patient reports 2016 without polyps Last imaging: -US abd ltd 08/23/2022: Moderate limitations. Hepatic cirrhosis without evidence of portal hypertension. Liver biopsy/Fibroscan: -Fibroscan 08/26/20: techinically difficult study; unable to get valid reading Assessment: 1. MICHAUD cirrhosis, MELD 13, compensated -Transplant is not a consideration at this time due to low MELD, advanced age, and multiple comorbidities. 2. Metabolic syndrome 3. A fib on eliquis 4. 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 Lower extremity erythema and edema R>L Recommendations: 1. MELD prior to next visit 2. Repeat imaging for HCC at time of next visit. 3. Repeat EGD first available 4. Counseled regarding low sodium diet. 5. I have also recommended a high protein diet. 6. Due to increased edema in RLE>LLE, I would like patient to be evaluated in the ER to rule outDVT (Less likely since he is on anticoagulation, however patient was in hospital recently thereforecould be at increased risk) vs cellulitis. I have asked him to return for a follow up visit in 6 months with MELD labs and AFP prior to that visit. Jackelyn Licona MD Priming Machine Operator Division of Gastroenterology and Hepatology No orders of the defined types were placed in this encounter. Current Outpatient Medications Medication Sig ??? acetaminophen (TYLENOL) 325 MG tablet Take 2 (two) tablets by mouth every 4 hours as needed ??? albuterol (PROVENTIL;VENTOLIN) (5 MG/ML) 0.5% nebulizer solution 2.5 mg. (Patient taking differently: Inhale 2.5 mg by mouth 4 times daily) ??? apixaban [...] tablet by mouth 2 times daily ??? Cetirizine HCl (ZYRTEC PO) Take 10 mg by mouth daily with breakfast ??? cyanocobalamin (VITAMIN B-12) 500 MCG tablet Take 500 mcg by mouth once daily (Patient not taking: Reported on 08/23/2022) ??? diphenhydrAMINE (BENADRYL) 25 MG capsule Take 1 (one) capsule by mouth every 6 hours as needed for Itching ??? doxycycline hyclate (VIBRAMYCIN) 100 MG capsule Take 1 (one) capsule by mouth once daily ??? ferrous sulfate 325 (65 FE) MG tablet Take 1 (one) tablet by mouth daily with breakfast ??? folic acid (Folvite) 1 MG tablet Take 1 tablet by mouth once daily (Patient not taking: Reported on 08/23/2022) ??? gabapentin (NEURONTIN) 100 MG capsule Take 2 (two) capsules by mouth at bedtime ??? magnesium oxide (Mag-Ox) 400 MG tablet Take 1 (one) tablet by mouth 2 times daily ??? metoprolol succinate XL 24hr (TOPROL XL) 50 MG tablet Take 1 (one) tablet by mouth once daily ??? nystatin 133860 UNIT/GM cream - BACITRACIN ointment 50:50 CREA Apply to affected area 2 times daily as needed ??? omeprazole (PRILOSEC) 40 MG capsule Take 1 (one) capsule by mouth daily before breakfast ??? potassium chloride ER (KLOR-CON M) 20 MEQ tablet Take 1 (one) tablet by mouth once daily ??? Pyridoxine HCl (VITAMIN B-6 PO) Take 100 mg by mouth 2 times daily ??? roflumilast (DALIRESP) 500 MCG tablet Take 1 (one) tablet by mouth once daily ??? Skin Protectants, Misc. (BASIS FACIAL MOISTURIZER) CREA 1 Each by Apply externally route as needed Reasons: Dryness Confined to a Specific area of the Body, eyes ??? Spacer/Aero-Holding Chambers (OPTICHAMBER CHAZ) MISC as directed ??? spironolactone (Aldactone) 25 MG tablet Take 0.5 tablets by mouth once daily ??? tamsulosin (FLOMAX) 0.4 MG capsule Take 1 (one) capsule by mouth at bedtime ??? triamcinolone acetonide (KENALOG) 0.1 % cream Apply to affected area 3 times daily Apply to rash daily as needed. ??? vitamin D, ergocalciferol, (DRISDOL) 84722 UNITS capsule Take 50,000 Units by mouth every 7 days (Patient not taking: Reported on 08/23/2022) No current facility-administered medications for this visit. documented in this encounter Plan of Treatment Upcoming Encounters Date Type Department Care Team (Late st Contact Info) Description 07/09/2024 12:30 PM AUTOMOBILE BODY REPAIRER HELPER Office Visit [facility] - GI [address] [place] [address], [facility] [place] [address] Twin Miller MD [address] [place] [address] DIV [place] [address] 09/19/2024 2:00 PM CDT Office Visit [facility] - Orthopedic Surgery [address] [place] [address] Larry Alexander MD [facility] [address] [place] [address] Scheduled Orders Name Type Priority Associated Diagnoses Orde r Schedule CBC W/O DIFFERENTIAL Lab Routine Liver cirrhosis secondary to MICHAUD (HCC) Lower extremity edema Cirrhosis of liver without ascites, unspecified hepatic cirrhosis type (HCC) Ordered: 08/23/2022 COMPREHENSIVE METABOLIC PANEL Lab Routine Liver cirrhosis secondary to MICHAUD (HCC) Lower extremity edema Cirrhosis of liver without ascites, unspecified hepatic cirrhosis type (HCC) Ordered: 08/23/2022 ALPHA FETOPROTEIN BLOOD TUMOR MARKER Lab Routine Liver cirrhosis secondary to MICHAUD (HCC) Lower extremity edema Cirrhosis of liver without ascites, unspecified hepatic cirrhosis type (HCC) Ordered: 08/23/2022 PT-INR Lab Routine Liver cirrhosis secondary to MICHAUD (HCC) Lower extremity edema Cirrhosis of liver without ascites, unspecified hepatic cirrhosis type (HCC) Ordered: 08/23/2022 documented as of this encounter Goals Goal [...] significantly lower sensitivity for focal liver lesions. I, BLAISE BOWENS MD have personally reviewed and interpreted this examination/study. > Interpreting Provider: BLAISE BOWENS MD on 03/21/2023 11:34 AM Narrative 03/21/2023 11:34 AM CDT PROCEDURE: ??US ABDOMEN LIMITED, DATE/TIME OF EXAM: ??03/21/2023 10:01 AM, LOCATION ??[facility] INDICATION: K75.81: Liver cirrhosis secondary to MICHAUD (CMS/HCC) K74.60: Liver cirrhosis secondary to MICHAUD (CMS/HCC) R60.0: Lower extremity edema K74.60: Cirrhosis [...] DATE/TIME OF EXAM: 03/21/2023 10:01 AM, LOCATION [facility] INDICATION: K75.81: Liver cirrhosis secondary to MICHAUD (CMS/HCC) K74.60: Liver cirrhosis secondary to MICHAUD (CMS/HCC) R60.0: Lower extremity edema K74.60: Cirrhosis [...] Limitations significantly lower sensitivityfor focal liver lesions. IBLAISE MD have personally reviewed and interpreted this examination/study. > Interpreting Provider: BLAISE BOWENS MD on 03/21/2023 11:34 AM Jackelyn Licona MD US ORDERABLES documented in this encounter Visit Diagnoses Diagnosis Liver cirrhosis secondary to MICHAUD (HCC)- Primary Other chronic nonalcoholic liver disease Lower extremity edema Edema Cirrhosis of liver without ascites, unspecified hepatic cirrhosis type (HCC) Liver cirrhosis secondary to MICHAUD (HCC) Other chronic nonalcoholic liver disease Lower extremity edema Edema Cirrhosis of liver without ascites, unspecified hepatic cirrhosis type (HCC) documented in this encounter Additional Health Concerns Infection Onset Date Last Indicated Resolved Time 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
--- OUTSIDE RECORDS SUMMARY | 2024-05-24 23:34 | XMS_ITS | Encounter Summary ---
Author Organization [facility] Address [address] [facility] [place] [address] Care Team Providers Care Machine Etcher Name Role Phone Briana Medeiros MD Primary Care Provider [phone] Encounter Details Date Type Department Care Team (Late st Contact Info) Description 05/14/2022 Orders Only [facility] [place] [address] [facility], [place] [address] Kimberly Lacy PA-C [address] [place] [address] 3L [place] [address] 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) Social History Tobacco Use Types Packs/Day [...] st Contact Info) Description 07/09/2024 12:30 PM DELIVERY CREW WORKER [facility] [place] [address] [facility], [place] [address] Twin Miller MD [facility] [place] [address] 09/19/2024 2:00 PM CDT Office Visit [facility] - Orthopedic Surgery 1031 [place] [phone] Larry Alexander MD 1031 [facility] 280 [place] [address] documented as of this encounter Goals Goal [...] Name Priority Date/Time Associated Diagnosis Comments PT-INR Routine 05/13/2022 11:41 AM DELIVERY CREW WORKER 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) CBC W AUTO DIFFERENTIAL Routine 05/13/2022 11:41 AM DELIVERY CREW WORKER 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) COMPREHENSIVE METABOLIC PANEL Routine 05/13/2022 11:41 AM DELIVERY CREW WORKER 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) documented in this encounter Results * PT-INR (05/13/2022 11:41 AM DELIVERY CREW WORKER) Pathologist [facility] INR 1.1 [facility] Comment: Reference Range ? 0.9-1.1 Moderate-intensity Warfarin Therapy 2.0-3.0 Higher-intensity Warfarin Therapy ?? 3.0-4.0 PT 11.1 9.0 - 11.5 sec [facility] Comment: For additional information, please refer to http://education.[employer]/faq/WVL965 (This link is being provided for informational/ educational purposes only.) Test Performed at: [facility] ??[phone] DROIAN CRUZ MD Blood BLOOD SPECIMEN / Unknown 05/13/2022 11:41 AM DELIVERY CREW WORKER 05/13/2022 11:41 AM DELIVERY CREW WORKER Kimberly Lacy PA-C LAB - COAGULATI ON ORDERABLES [address] [address] * (ABNORMAL) CBC WITH DIFFERENTIAL (05/13/2022 11:41 AM DELIVERY CREW WORKER) [facility] White Blood Cell Count 8.5 3.8 - 10.8 Thousand/u L [facility] RBC 4.56 4.20 - 5.80 Million/uL [facility] Hemoglobin 13.7 13.2 - 17.1 g/dL [facility] Hematocrit 41.9 38.5 - 50.0 % [facility] MCV 91.9 80.0 - 100.0 fL [facility] MCH 30.0 27.0 - 33.0 pg [facility] MCHC 32.7 32.0 - 36.0 g/dL [facility] RDW 12.9 11.0 - 15.0 % [facility] Platelet Count 136(L) 140 - 400 Thousand/u L [facility] MPV 13.8(H) 7.5 - 12.5 fL [facility] Neutrophil Absolute 6180 1500 - 7800 cells/uL [facility] Lymphocytes Absolute 927 850 - 3900 cells/uL [facility] Absolute Monocytes 859 200 - 950 cells/uL [facility] Eosinophils Absolute 459 15 - 500 cells/uL [facility] Basophils Absolute 77 0 - 200 cells/uL [facility] Granulocytes % 72.7 % [facility] Lymphocytes % 10.9 % [facility] Monocytes % 10.1 % [facility] Eosinophils % 5.4 % [facility] Basophils % 0.9 % [facility] Comment: Test Performed at: [facility] [address] [place], [place] ??[phone] ROSS LOPEZ DO,MPH Blood BLOOD SPECIMEN / Unknown 05/13/2022 11:41 AM DELIVERY CREW WORKER 05/13/2022 11:41 AM DELIVERY CREW WORKER Kimberly Lacy PA-C LAB - HEMATOLOG Y ORDERABLES [facility] [address] [place] [address] * (ABNORMAL) COMPREHENSIVE METABOLIC PANEL (05/13/2022 11:41 AM DELIVERY CREW WORKER) Glucose 117(H) 65 - 99 mg/dL [facility] Comment: ? Fasting reference interval For someone without known diabetes, a glucose value between 100 and 125 mg/dL is consistent with prediabetes and should be confirmed with a follow-up test. BUN 27(H) 7 - 25 mg/dL [facility] Creatinine 1.84(H) 0.70 - 1.28 mg/dL [facility] eGFR by Cystatin C 38(L) > OR = 60 mL/min/1.7 3m2 [facility] Comment: The eGFR is based on the CKD-EPI 2020 equation. To calculate the new eGFR from a previous Creatinine or Cystatin C result, go to https://www.kidney.org/professionals/ kdoqi/gfr%5Fcalculator BUN/Creatinine Ratio 15 6 - 22 (calc) [facility] Sodium 140 135 - 146 mmol/L [facility] Potassium 4.6 3.5 - 5.3 mmol/L [facility] Chloride 103 98 - 110 mmol/L [facility] CO2 28 20 - 32 mmol/L [facility] Calcium 9.7 8.6 - 10.3 mg/dL [facility] Protein Total 6.9 6.1 - 8.1 g/dL [facility] Albumin 4.0 3.6 - 5.1 g/dL [facility] Globulin Total 2.9 1.9 - 3.7 g/dL (calc) [facility] Albumin/Globulin Ratio 1.4 1.0 - 2.5 (calc) [facility] Bilirubin Total 0.7 0.2 - 1.2 mg/dL [facility] Alkaline Phosphatase 91 35 - 144 U/L [facility] AST 17 10 - 35 U/L [facility] ALT 20 9 - 46 U/L [facility] Comment: Test Performed at: [facility] [id number] [place] [place] [address] ??[phone] ROSS LOPEZ DO,MPH Blood BLOOD SPECIMEN / Unknown 05/13/2022 11:41 AM DELIVERY CREW WORKER 05/13/2022 11:41 AM DELIVERY CREW WORKER Kimberly Lacy PA-C LAB - CHEMISTRY ORDERABLES [facility] [address] [place] [address] documented in this encounter Visit Diagnoses Diagnosis 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) Other chronic nonalcoholic liver disease documented in this encounter Additional Health Concerns Infection Onset Date Last Indicated Resolved Time 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
--- OUTSIDE RECORDS SUMMARY | 2024-05-24 23:34 | XMS_ITS | Encounter Summary ---
Author Organization [facility] Address [address] [facility] [place] [address] Care Team Providers Care Clinical Program Coordinator Name Role Phone Unknown, Provider Primary Care Provider Unavaila ble Reason for Visit * Reason Comments Refill Request Encounter Details Date Type Department Care Team (Late st Contact Info) Description 12/02/2022 Refill [facility] - [address] [place] [phone] Jackelyn Licona MD [address] [place] [address] Refill Request Social History Tobacco Use Types [...] st Contact Info) Description 07/09/2024 12:30 PM TECHNICAL SALES REPRESENTATIVE [facility] Visit [facility] [place] [address] [facility], [place] [phone] Twin Miller MD [address] [facility] 2L [place] [address] 09/19/2024 2:00 PM CDT [facility] - [facility]opedic [facility] [address] [facility] [place] [address] Larry Alexander MD 1031 [facility] 280 [place] [address] documented as of this encounter Goals Goal [...] documented as of this encounter Care Teams Clinical Program Coordinator Relationship Specialty Start Date End Date Unknown, Provider PCP - General 08/23/22 10/12/23 documented as of this encounter
--- OUTSIDE RECORDS SUMMARY | 2024-05-24 23:34 | XMS_ITS | Encounter Summary ---
Author Organization [facility] Address [address] [facility] [place] [address] Care Team Providers Care Mixed Signal Design Engineer Name Role Phone Briana Medeiros MD Primary Care Provider [phone] Encounter Details Date Type Department Care Team (Latest Contact Info) Description 02/23/2022 Travel Social History Tobacco Use Types Packs/Day [...] st Contact Info) Description 07/09/2024 12:30 PM BATTERY BUILDER [place] [facility] [place] [address] [place] [address], [place] [address] Twin Miller MD [address] [place] [address] [place] [address] 09/19/2024 2:00 PM CDT Office Visit [facility] - Orthopedic Surgery [address] [facility] [place] [address] Larry Alexander MD 10[address] [facility] 280 [place] [address] documented as of this encounter Goals Goal [...] documented as of this encounter Care Teams Mixed Signal Design Engineer Relationship Specialty Start Date End Date Briana Medeiros MD [address] [place] [address] PCP - General 02/23/22 06/13/22 documented as of this encounter
--- OUTSIDE RECORDS SUMMARY | 2024-05-24 23:34 | XMS_ITS | Encounter Summary ---
Author Organization [facility] Address [address] [place] [address] Care Team Providers Care Elementary School Music Teacher Name Role Phone Unavailable Primary Care Provider Unavailabl e Encounter Details Date Type Department Care Team (Late st Contact Info) Description 08/06/2022 Orders Only [facility] - [place] [address] [facility], [place] [address] Kimberly Lacy PA-C [address] [place] [address] [address] [facility] [place] [address] 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 [...] st Contact Info) Description 07/09/2024 12:30 PM PATTERNMAKER APPRENTICE WOOD Office Visit [facility] - [place] [address] [facility], [place] [address] Twin Miller MD [facility]5 [facility] 2L [place] [address] 09/19/2024 2:00 PM CDT [facility] - Orthopedic Surgery [address] [facility] [place] [address] Larry Alexander MD 1031 [facility] 280 [place] [address] documented as of this encounter Goals Goal [...] Priority Date/Time Associated Diagnosis Comments PT-INR Routine 08/10/2022 12:59 PM PATTERNMAKER APPRENTICE WOOD 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) CBC W AUTO DIFFERENTIAL Routine 08/10/2022 12:59 PM PATTERNMAKER APPRENTICE WOOD 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) COMPREHENSIVE METABOLIC PANEL Routine 08/10/2022 12:59 PM PATTERNMAKER APPRENTICE WOOD 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) documented in this encounter Results * PT-INR (08/10/2022 12:59 PM PATTERNMAKER APPRENTICE WOOD) [facility] INR 1.1 [facility] Comment: Reference Range ? 0.9-1.1 Moderate-intensity Warfarin Therapy 2.0-3.0 Higher-intensity Warfarin Therapy ?? 3.0-4.0 PT 10.9 9.0 - 11.5 sec [facility] Comment: For additional information, please refer to http://education.Peecho/faq/PCY927 (This link is being provided for informational/ educational purposes only.) Test Performed at: [facility] ??[phone] DORIAN CRUZ MD Blood BLOOD SPECIMEN / Unknown 08/10/2022 12:59 PM PATTERNMAKER APPRENTICE WOOD 08/10/2022 12:59 PM PATTERNMAKER APPRENTICE WOOD Kimberly Lacy PA-C LAB - COAGULATI ON ORDERABLES [address] [address] * (ABNORMAL) CBC WITH DIFFERENTIAL (08/10/2022 12:59 PM PATTERNMAKER APPRENTICE WOOD) [facility] White Blood Cell Count 10.4 3.8 - 10.8 Thousand/u L [facility] RBC 4.62 4.20 - 5.80 Million/uL [facility] Hemoglobin 13.7 13.2 - 17.1 g/dL [facility] Hematocrit 42.1 38.5 - 50.0 % [facility] MCV 91.1 80.0 - 100.0 fL [facility] MCH 29.7 27.0 - 33.0 pg [facility] MCHC 32.5 32.0 - 36.0 g/dL [facility] RDW 13.1 11.0 - 15.0 % [facility] Platelet Count 120(L) 140 - 400 Thousand/u L [facility] MPV 12.9(H) 7.5 - 12.5 fL [facility] Neutrophil Absolute 8070(H) 1500 - 7800 cells/uL [facility] Lymphocytes Absolute 894 850 - 3900 cells/uL [facility] Absolute Monocytes 915 200 - 950 cells/uL [facility] Eosinophils Absolute 458 15 - 500 cells/uL [facility] Basophils Absolute 62 0 - 200 cells/uL [facility] Granulocytes % 77.6 % [facility] Lymphocytes % 8.6 % [facility] Monocytes % 8.8 % [facility] Eosinophils % 4.4 % [facility] Basophils % 0.6 % [facility] Comment: Test Performed at: [facility] [address] [place], [place] ??[phone] DORIAN CRUZ MD Blood BLOOD SPECIMEN / Unknown 08/10/2022 12:59 PM PATTERNMAKER APPRENTICE WOOD 08/10/2022 12:59 PM PATTERNMAKER APPRENTICE WOOD Kimberly Lacy PA-C LAB - HEMATOLOG Y ORDERABLES [facility] [address] [place] [address] * (ABNORMAL) COMPREHENSIVE METABOLIC PANEL (08/10/2022 12:59 PM PATTERNMAKER APPRENTICE WOOD) Glucose 91 65 - 99 mg/dL [facility] Comment: ? Fasting reference interval BUN 30(H) 7 - 25 mg/dL [facility] Creatinine 1.74(H) 0.70 - 1.28 mg/dL [facility] eGFR by Cystatin C 41(L) > OR = 60 mL/min/1.7 3m2 [facility] Comment: The eGFR is based on the CKD-EPI 2020 equation. To calculate the new eGFR from a previous Creatinine or Cystatin C result, go to https://www.kidney.org/professionals/ kdoqi/gfr%5Fcalculator BUN/Creatinine Ratio 17 6 - 22 (calc) [facility] Sodium 141 135 - 146 mmol/L [facility] Potassium 5.1 3.5 - 5.3 mmol/L [facility] Chloride 101 98 - 110 mmol/L [facility] CO2 29 20 - 32 mmol/L [facility] Calcium 10.1 8.6 - 10.3 mg/dL [facility] Protein Total 6.6 6.1 - 8.1 g/dL [facility] Albumin 3.9 3.6 - 5.1 g/dL [facility] Globulin Total 2.7 1.9 - 3.7 g/dL (calc) [facility] Albumin/Globulin Ratio 1.4 1.0 - 2.5 (calc) [facility] Bilirubin Total 0.9 0.2 - 1.2 mg/dL [facility] Alkaline Phosphatase 97 35 - 144 U/L [facility] AST 18 10 - 35 U/L [facility] ALT 26 9 - 46 U/L [facility] Comment: Test Performed at: [facility] [address], [place] ??[phone] DORIAN CRUZ MD Blood BLOOD SPECIMEN / Unknown 08/10/2022 12:59 PM PATTERNMAKER APPRENTICE WOOD 08/10/2022 12:59 PM PATTERNMAKER APPRENTICE WOOD Kimberly Lacy PA-C LAB - CHEMISTRY ORDERABLES Performing Organization Address City/State/[facility] Co la Phone Number [facility] [address] [place] [phone] documented in this encounter Visit Diagnoses Diagnosis 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) Other chronic nonalcoholic liver disease documented in this encounter Additional Health Concerns Infection Onset Date Last Indicated Resolved Time 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
--- OUTSIDE RECORDS SUMMARY | 2024-05-24 23:34 | XMS_ITS | Encounter Summary ---
Author Organization [facility] Address [address] [facility] [place] [address] Care Team Providers Care Frame Hand Name Role Phone Briana Medeiros MD Primary Care Provider [phone] Encounter Details Date Type Department Care Team (Late st Contact Info) Description 08/17/2021 Orders Only [facility] - [address] [facility], [place] [phone] Jackelyn Licona MD [address] [place] [phone] 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); Lower extremity edema; Cirrhosis of liver without ascites, unspecified hepatic cirrhosis type (HCC); Screening of cancer Social History Tobacco Use Types Packs/Day Years [...] Exposure Response Date Recorded In the last month, have you been in contact with someone who was confirmed or suspected to have Coronavirus / COVID-19? No / Unsure 08/25/2021 12:18 PM CDT documented as of this encounter [...] st Contact Info) Description 07/09/2024 12:30 PM PSYCHOLOGICAL OPERATIONS SPECIALIST Office Visit [facility] - [place] [address] [facility], [place] [address] Twin Miller MD [facility] DIV [place] [address] 09/19/2024 2:00 PM CDT Office Visit [facility] - Orthopedic Surgery [address] [place] [address] Larry Alexander MD 1031 [facility] 280 [place] [address] documented as of this encounter Goals Goal [...] as of this encounter Visit Diagnoses Diagnosis Liver cirrhosis [...] documented as of this encounter Care Teams Frame Hand Relationship Specialty Start Date End Date Briana Medeiros MD [address] [place], [place] [phone] PCP - General 02/15/18 02/22/22 documented as of this encounter
--- OUTSIDE RECORDS SUMMARY | 2024-05-24 23:34 | XMS_ITS | Encounter Summary ---
Author Organization [facility] Address [address] [facility] [address] Care Team Providers Care Special Delivery Worker Name Role Phone Briana Medeiros MD Primary Care Provider [phone] Encounter Details Date Type Department Care Team (Late st Contact Info) Description 06/08/2021 Orders Only [facility] - [address] [facility], [place] [phone] Jackelyn Licona MD [address] [place] [phone] 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); Nonalcoholic steatohepatitis (RAYGOZA); Lower extremity edema Social History Tobacco Use Types Packs/Day Years [...] Contact Info) Description 07/09/2024 12:30 PM SUPERVISOR SECURITIES VAULT [facility] [place] [address] [facility], [place] [address] Twin Miller MD [facility] [place] [address] 09/19/2024 2:00 PM CDT [facility] - Orthopedic Surgery [address] [place] [phone] Larry Alexander MD 10[address] [facility] 280 [place] [address] documented as of this encounter Goals Goal [...] steatohepatitis (RAYGOZA) Other chronic nonalcoholic liver disease Lower extremity edema Edema documented in this encounter Additional Health Concerns Infection Onset Date Last Indicated Resolved Time 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
--- OUTSIDE RECORDS SUMMARY | 2024-05-24 23:34 | XMS_ITS | Encounter Summary ---
Author Organization [facility] Address [address] [place] [address] Care Team Providers Care Replenishment Buyer Name Role Phone Briana Medeiros MD Primary Care Provider [phone] Reason for Visit * Reason Comments Infectious Disease Wound Assessment 1 ye ar follow-up Encounter Details Date Type Department Care Team (Latest Contact Info) Description 10/20/2021 9:48 AM CDT - 10/20/2021 11:59 PM CDT Hospital Encounter Wound Care at [facility] [address] [place] [id number] Raysa Nevarez MD [address] [id number] Discharge Disposition: Home or Self Care Social [...] suspected to have Coronavirus/COVID-19? No / Unsure 10/08/2021 2:12 PM CDT documented as of this encounter Last Filed Vital Signs Vital Sign Reading Time Taken Comments Blood Pressure 109/69 10/20/2021 10:35 AM CDT Pulse 70 10/20/2021 10:35 AM CDT Temperature 36.7 ??C (98.1 ??F) 10/20/2021 10:35 AM C DT Respiratory Rate 20 10/20/2021 10:35 AM CDT Oxygen Saturation - - Inhaled Oxygen Concentration - - Weight - - Height - - Body Mass Index - - documented in this encounter Functional Status Functional [...] Date End Date acetaminophen (TYLENOL) 325 MG tabletIndications:Othe r cirrhosis of liver (HCC) Take 2 (two) tablets by mouth every 4 hours as needed apixaban (ELIQUIS) 5 MG tablet Take 1 (one) tablet by mouth 2 times daily aspirin EC (ECOTRIN) 81 MG tablet Take 1 (one) tablet by mouth once daily baclofen (LIORESAL) 10 MG tablet Take 1 (one) tablet by mouth at bedtime May cause drowsiness. VALENTIN AEROSPHERE 160-9-4.8 MCG/ACT AERO Inhale 2 (two) [...] once daily 01/27/2021 tamsulosin (FLOMAX) 0.4 MG capsuleIndications:Oth er cirrhosis of liver (HCC) Take 1 (one) [...] capsule by mouth 2 times daily 10/12/2023 gabapentin (NEURONTIN) 100 MG capsule Take 3 (three) capsules by mouth 2 times daily 10/12/2023 nystatin (MYCOSTATIN) 799651 UNIT/GM powder Apply to affected area 2 times daily as needed Apply to groin area twice a day as needed. 02/23/2022 omeprazole (PRILOSEC) 40 MG capsule Take 1 [...] of the Body, eyes 10/12/2023 Spacer/Aero-Holding Chambers ([facility]) MISC as directed 11/17/2020 10/12/2023 spironolactone (ALDACTONE) 50 MG tablet Take 1 (one) tablet by mouth once daily 30 tablet 5 12/30/2020 02/23/2022 triamcinolone acetonide (KENALOG) 0.1 % cream Apply to affected area 2 times daily as needed Apply to rash daily as needed. 10/12/2023 vitamin D, ergocalciferol, (DRISDOL) 26783 UNITS capsuleIndications:Oth er cirrhosis of liver (HCC) Take 50,000 Units by mouth every 7 days 0 02/02/2018 03/21/2023 documented as of this encounter Progress Notes * Raysa Nevarez MD - 10/20/2021 11:03 AM CDT Infectious Diseases Consult Note Patient's Primary Care Physician: Briana Medeiros MD Reason for Consultation: Referring Physcian: No admitting provider for patient encounter. Name: Mason Keys Age: [age] year old 0 Chief Complaint/History of Present Illness [facility] Has difficulty walking due to increased weight over the last year or so. No drainage from the right hip Has been compliant with suppression with doxycycline. No fever COVID-19 vaccinated and boosted Objective: Review of Systems General: no fatigue/fever/chills Skin: no rashes/lesions Eyes: no vision problems/no conjunctival lesions HENT: no oral lesion/no hearing problems Respiratory: no cough/sob Cardiovascular: no cp/palpitations Gastrointestinal: no nausea/diarrhea Genitourinary: no dysuria/hematuria Musculoskeletal: no joint pain/no muscle pain Exam Vitals: 10/20/21 1035 BP: 109/69 Pulse: 70 Resp: 20 Temp: 98.1 ??F (36.7 ??C) Temp (30hrs) Max:98.1 ??F (36.7 ??C) General appearance: Alert, looks depressed HEENT: ncat, vision intact/perrl, mmm/no lesion, neck supple/nt Lungs: Resonant, decreased air entry Heart: regular rate and rhythm, S1, S2 normal, no murmur, click, rub or gallop, Abdomen: Soft, distended Extremities: Right hip scar, no drainage, no redness Skin: no rash/lesion Lines: MEDICATIONS FOR CURRENT ENCOUNTER: ?? SCHEDULED MEDICATIONS: ?? No current facility-administered medications for this encounter. Data Recent Labs Component Name 08/03/21 1025 01/09/21 1055 09/05/20 1325 WBC 9.3 8.3 10.3 HGB 14.9 15.1 15.3 HCT 45.1 47.6 47.4 PLTCOUNT 91* 98* 113* Recent Labs Component Name 08/03/21 1025 01/09/21 1055 09/05/20 1325 SODIUM 139 137 140 POTASSIUM 4.7 4.4 4.2 CHLORIDE 102 102 103 CO2 27 26 28 BUN 41* 50* 27* CREATININE 1.89* 2.07* 1.46* GLUCOSE 124* 144* 109* CALCIUM 9.6 9.7 9.9 Recent Labs Component Name 08/03/21 1025 01/09/21 1055 09/05/20 1325 ALBUMIN 4.1 3.9 3.9 ALKPHOS 106 119 126 ALT 28 23 24 AST 20 18 20 TBIL 0.6 0.9 0.8 TPROT 6.8 6.9 7.1 No results for input(s): CDIFFTOXINAB in the last 01483 hours. Recent Labs Component Name 04/24/19 1141 SEDRATE 70* No results for input(s): CK in the last 67880 hours. .No results for input(s): VANCOTROUGH, VANCOPEAK, VANCSERIES in the last 75539 hours. Invalid input(s): FESTUSARSH Recent Labs Component Name 02/03/19 0106 07/14/17 2212 HGBA1C 5.8 6.3 Recent Labs Component Name 02/04/19 0617 08/26/17 1420 COLORUA Yellow - CLARITYUA Cloudy* - SPECGRAVUA 1.021 - PHUA 5.0 6.0 PROTEINUA Negative - BLOODUA Negative - LEUKOCYTEUA Negative - NITRITEUA Negative - GLUCOSEUA Negative - KETONEUA Trace* - BILIRUBINUA Negative - UROBILINUA Negative <2.0 RBCUA - 1 Recent Labs Component Name 07/17/17 1308 07/15/17 0504 FERRITIN 947* 1,459* Recent Labs Component Name 04/24/19 1140 08/15/17 0348 08/09/17 0745 CRP 1.41* 4.1* 32.0* Recent Labs Component Name 09/07/17 0428 08/27/17 0747 08/12/17 0525 PROCALCITON 0.47 0.26 0.40 Recent Labs Component Name 09/15/17 0441 09/11/17 0437 08/26/17 1420 BNP 694* 806* 552* Microbiology Radiology Assessment 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 * the patient lives far away hence I proposed that he is followed by his primary care physician unless he doesn't feel comfortable prescribing the suppression Will need labs every 3-6 mo Discussed with patient's Please be advised that part of this text was done using voice recognition software. Errors may havebeen missed upon review. Raysa Nevarez MD documented in this encounter Plan of Treatment Upcoming Encounters Date Type Department Care Team (Late st Contact Info) Description 07/09/2024 12:30 PM SUPERVISOR CHEMICAL Office Visit [facility] - GI [address] [place] [address], [place] [address] Twin Miller MD [address] [place] [address] [place] [address] 09/19/2024 2:00 PM CDT Office Visit [facility] - Orthopedic Surgery [address] [place] [phone] Larry Alexander MD [address] [facility] [address] [place] [address] documented as of this encounter Goals Goal [...] documented as of this encounter Care Teams Replenishment Buyer Relationship Specialty Start Date End Date Briana Medeiros MD [address] [place], [place] [phone] PCP - General 02/15/18 02/22/22 documented as of this encounter
--- OUTSIDE RECORDS SUMMARY | 2024-05-24 23:34 | XMS_ITS | Encounter Summary ---
Author Organization [facility] Address [address] [place] [address] Care Team Providers Care Material Damage Adjuster Name Role Phone Briana Medeiros MD Primary Care Provider [phone] Encounter Details Date Type Department Care Team (Late Contact Info) Description 08/03/2021 Orders Only [facility] GI [address] [place] [address] Jackelyn Licona MD [address] [place] [address] Social History Tobacco Use Types [...] st Contact Info) Description 07/09/2024 12:30 PM TURNAROUND PLANNER Office Visit [facility] - GI [address] [facility], [place] [address] Twin Miller MD [facility] [facility] [address] [facility] [place] [address] 09/19/2024 2:00 PM CDT Office Visit [facility] - Orthopedic Surgery [address] [place] [address] Larry Alexander MD [address] [facility] [address] [place] [address] documented as of this encounter Goals Goal [...] Diagnosis Comments ALPHA FETOPROTEIN BLOOD TUMOR MARKER 08/03/2021 10:25 AM TURNAROUND PLANNER PT-INR 08/03/2021 10:25 AM TURNAROUND PLANNER CBC W/O DIFFERENTIAL 08/03/2021 10:25 AM TURNAROUND PLANNER COMPREHENSIVE METABOLIC PANEL 08/03/2021 10:25 AM TURNAROUND PLANNER documented in this encounter Results * ALPHA FETOPROTEIN BLOOD TUMOR MARKER (08/03/2021 10:25 AM TURNAROUND PLANNER) [facility] Alpha-Fetoprotei n Tumor Marker 1.6 <6.1 ng/mL [facility] Comment: This test was performed using the Flex [place] chemiluminescent method. Values obtained from different assay methods cannot be used interchangeably. AFP levels, regardless of value, should not be interpreted as absolute evidence of the presence or absence of disease. Test Performed at: [address] ??[id number] LAURA REYES MD 08/03/2021 10:2 5 AM TURNAROUND PLANNER 08/03/2021 10:28 AM TURNAROUND PLANNER Jackelyn Licona MD LAB - CHEMISTRY ORDE RABLES Performing Organization Address [facility] Co de Phone Number [address] [address] * PT-INR (08/03/2021 10:25 AM TURNAROUND PLANNER) [facility] INR 1.1 [facility] Comment: Reference Range ? 0.9-1.1 Moderate-intensity Warfarin Therapy 2.0-3.0 Higher-intensity Warfarin Therapy ?? 3.0-4.0 PT 10.8 9.0 - 11.5 sec [facility] Comment: For additional information, please refer to http://education.[employer]/faq/CWW697 (This link is being provided for informational/ educational purposes only.) Test Performed at: [address] ??[phone] DORIAN CRUZ MD 08/03/2021 10:2 5 AM TURNAROUND PLANNER 08/03/2021 10:28 AM TURNAROUND PLANNER Jackelyn Licona MD LAB - COAGULATION OR DERABLES Performing Organization Address [facility] de Phone Number [address] [address] * (ABNORMAL) CBC W/O DIFFERENTIAL (08/03/2021 10:25 AM TURNAROUND PLANNER) [facility] White Blood Cell Count 9.3 3.8 - 10.8 Thousand/u L [facility] RBC 5.00 4.20 - 5.80 Million/uL [facility] Hemoglobin 14.9 13.2 - 17.1 g/dL [facility] Hematocrit 45.1 38.5 - 50.0 % [facility] MCV 90.2 80.0 - 100.0 fL [facility] MCH 29.8 27.0 - 33.0 pg [facility] MCHC 33.0 32.0 - 36.0 g/dL [facility] RDW 13.1 11.0 - 15.0 % [facility] Platelet Count 91(L) 140 - 400 Thousand/u L [facility] MPV 13.5(H) 7.5 - 12.5 fL [facility] Comment: Test Performed at: [facility] [address] [place], [place] ??[address] ROSS LOPEZ DO,MPH 08/03/2021 10:2 5 AM TURNAROUND PLANNER 08/03/2021 10:28 AM TURNAROUND PLANNER Jackelyn Licona MD LAB - HEMATOLOGY ORD ERABLES [facility] [address] [place] [address] * (ABNORMAL) COMPREHENSIVE METABOLIC PANEL (08/03/2021 10:25 AM TURNAROUND PLANNER) Pathologist [facility] Glucose 124(H) 65 - 99 mg/dL [facility] Comment: ? Fasting reference interval For someone without known diabetes, a glucose value between 100 and 125 mg/dL is consistent with prediabetes and should be confirmed with a follow-up test. BUN 41(H) 7 - 25 mg/dL [facility] Creatinine 1.89(H) 0.70 - 1.18 mg/dL [facility] Comment: For patients >49 years of age, the reference limit for Creatinine is approximately 13% higher for people identified as -Faroese. eGFR by MDRD 35(L) > OR = 60 mL/min/1. 73m2 [facility] eGFR by MDRD 40(L) > OR = 60 mL/min/1. 73m2 [facility] BUN/Creatinine Ratio 22 6 - 22 (calc) [facility] Sodium 139 135 - 146 mmol/L [facility] Potassium 4.7 3.5 - 5.3 mmol/L [facility] Chloride 102 98 - 110 mmol/L [facility] CO2 27 20 - 32 mmol/L [facility] Calcium 9.6 8.6 - 10.3 mg/dL [facility] Protein Total 6.8 6.1 - 8.1 g/dL [facility] Albumin 4.1 3.6 - 5.1 g/dL [facility] Globulin Total 2.7 1.9 - 3.7 g/dL (calc) [facility] Albumin/Globulin Ratio 1.5 1.0 - 2.5 (calc) [facility] Bilirubin Total 0.6 0.2 - 1.2 mg/dL [facility] Alkaline Phosphatase 106 35 - 144 U/L [facility] AST 20 10 - 35 U/L [facility] ALT 28 9 - 46 U/L [facility] Comment: Test Performed at: [facility] [address] [place], [place] ??[phone] ROSS LOPEZ DO,MPH 08/03/2021 10:2 5 AM TURNAROUND PLANNER 08/03/2021 10:28 AM TURNAROUND PLANNER Jackelyn Licona MD LAB - CHEMISTRY ROYCE KLINE [facility] Organization Address City/State/[facility] Co de Phone Number [facility] [address] [place] [address] documented in this encounter Visit Diagnoses Not on filedocumented in this encounter Additional Health Concerns Infection Onset Date Last Indicated Resolved Time 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
--- OUTSIDE RECORDS SUMMARY | 2024-05-24 23:34 | XMS_ITS | Encounter Summary ---
Author Organization [facility] Address [address] [facility] [place] [address] Care Team Providers Care Screen Operator Name Role Phone Unknown, Provider Primary Care Provider Unavaila ble Reason for Visit * Auth/Cert (Routine) Specialty Diagnoses / Procedures Referred By Contsara t Referred To Contact Diagnoses 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) Procedures ESOPHAGOGASTRODUODENOSCOPY (EGD) DIAGNOSTIC Referral ID Status Reason Start Date Expiration Date Visits Re quested Visits Authorized [id number] 1 1 Encounter Details Date Type Department Care Team (Late st Contact Info) Description 10/07/2022 1:00 PM CDT - 10/07/2022 1:30 PM CDT Surgery [facility] [address] [place] [address] Jackelyn Licona MD [address] [place] [address] EGD w/ jorge Surgery Details Date/Time Status Location OR Service Patient Class Case Class Case Type Trauma Case? 10/07/2022 1:00 PM Posted [facility] Endoscopy ENDO 2 Gastroenterology Surgery Day Care Elective > 5 days Panel 1 Procedure LRB Anes Op Region Wound Class Comments EGD w/ jorge N/A MAC Esophagus Clean Contaminate d duodenal ulcer - gold probe/ clip A. gastric biopsies r/o h. pylori PHG, no varices Surgeon Surgeon Role Service Panel Jackelyn Licona MD Primary Gastroenterology 1 Santosh Johnson MD Gastroenterology 1 Special Needs EGD Received: Today Call patient Naye Myrick RN P [facility] Schedulers - Endoscopy Pool Please schedule patient for an upper EGD with Dr. Licona, next available. Thank you. Naye ?? Received Date Received Time Aug 23, 2022 12:53 PM documented in this encounter Social History [...] Sign Reading Time Taken Comments Blood Pressure 94/78 10/07/2022 1:15 PM CDT Pulse 70 10/07/2022 1:15 PM CDT Temperature 36.6 ??C (97.8 ??F) 10/07/2022 1:15 PM CD T Respiratory Rate 17 10/07/2022 1:15 PM CDT Oxygen Saturation 98% 10/07/2022 1:15 PM CDT Inhaled Oxygen Concentration - - Weight 120.7 kg (266 lb) 10/07/2022 1:03 PM CDT Height 180.3 cm (5' 11 ) 10/07/2022 1:03 PM CDT Body Mass Index 37.1 10/07/2022 1:03 PM CDT documented in this encounter Functional [...] No 10/07/2022 documented as of this encounter Discharge Instructions * Discharge Instructions* Myrna Dunham RN - 10/07/2022 2:31 PM CDT Images from the original note were not included. Upper Endoscopy WHAT YOU NEED TO KNOW: An upper endoscopy is also called an upper gastrointestinal (GI) endoscopy, or an esophagogastroduodenoscopy (EGD). You may feel bloated, gassy, or have some abdominal discomfort after your procedure. Your throat may be sore for 24 to 36 hours. You may burp or pass gas from air that is still insideyour body. DISCHARGE INSTRUCTIONS: Call 911 if: You have [...] ask them during your visits. ?? Copyright [employer] 2020 Information is for End User's use only and may not be sold, redistributed or otherwise used for commercial purposes. All illustrations and images included in CareNotes?? are the copyrighted property of [employer] or [employer] The above information is an teacher aide clerical only. It is not intended as medical advice for individual conditions or treatments. Talk to your doctor, nurse or pharmacist before following any medical regimen to see if it is safe and effective for you. documented in this encounter Medications at Time [...] by mouth 2 times daily 10/12/2023 nystatin 248291 UNIT/GM cream - BACITRACIN ointment 50:50 CREA Apply to affected area 2 times daily as needed 10/12/2023 omeprazole (PriLOSEC) 40 MG capsuleIndications:Pe ptic Ulcer Take 1 (one) capsule by mouth 2 times daily, before breakfast and supper Reasons: Peptic Ulcer 30 capsule 3 10/07/2022 11/24/2022 potassium chloride ER (KLOR-CON M) 20 MEQ tablet Take 1 (one) tablet by mouth once daily 11/03/2023 Skin Protectants, Misc. (BASIS FACIAL MOISTURIZER) CREAIndications:Local Dryness of Skin,eyes 1 Each by Apply externally route as needed Reasons: Dryness Confined to a Specific area of the Body, eyes 10/12/2023 Spacer/Aero-Holding Chambers ([facility] CHAZ) MISC as directed 11/17/2020 10/12/2023 triamcinolone acetonide (KENALOG) 0.1 % cream Apply to affected area 2 times daily as needed Apply to rash daily as needed. 10/12/2023 vitamin D, ergocalciferol, (DRISDOL) 93748 UNITS capsuleIndications:Ot her cirrhosis of liver (HCC) Take 50,000 Units by mouth every 7 days 0 02/02/2018 03/21/2023 documented as of this encounter H&P Notes * Jackelyn Licona MD - 10/07/2022 12:21 PM CDT PRE-PROCEDURE HISTORY & PHYSICAL NOTE (Presedation assessment per Anesthesia Team) 10/07/2022 1:17 PM Patient: Mason Keys, date of 1950 Procedure(s) planned: EGD Indication(s): variceal screening, no prior history of varices History: Patient Active Problem List: Acute embolism and [...] prostatic hyperplasia without lower urinary tract symptoms Past Medical History: Diagnosis Date ??? Actinic [...] ??? S/P PICC central line placement 02/13/2019 [facility] VAT R basilic ??? Seizures (CMS/HCC) ??? Squamous cell carcinoma ??? VRE (vancomycin resistant enterococcus) culture positive 04/29/2019 rectal swab+ Past Surgical History: Procedure Laterality Date ??? Cataract Removal Bilateral ??? ENDOSCOPY, UPPER N/A 09/15/2017 N/A; ESOPHAGOGASTRODUODENOSCOPY (EGD) DIAGNOSTIC ??? ENDOSCOPY, UPPER N/A 07/03/2020 N/A; ESOPHAGOGASTRODUODENOSCOPY (EGD) DIAGNOSTIC--LICONA ??? EXCISION BURSA Right 02/08/2019 Right; EXCISION [...] ABSCESS ??? Tracheostomy N/A 09/13/2017 N/A; TRACHEOSTOMY Family History Problem Relation Name Age of Onset ??? CAD (Coronary Artery Disease) Mother age 65 ??? Cirrhosis Father ??? Cancer - Breast Neg Hx ??? CVA Neg Hx ??? Hemophilia Neg Hx ??? Cancer - Other Neg Hx ??? Eczema Neg Hx ??? Psoriasis Neg Hx ??? Cancer - Skin, Non Melanoma Neg Hx ??? Cancer - Skin, Melanoma Neg Hx Allergies Allergen Reactions ??? Penicillins Skin Reactions and Swelling ??? Levaquin [Levofloxacin] Eye Itching red around the eyes , puffy, itchy ??? Green [Peppers] GI Discomfort Green and red peppers ??? Scopace [Scopolamine] Other and MOBILE PRACTICE LEAD Dysfunction delirium ??? Tobramycin Eye Itching red around the eyes, puffy, itchy Current Facility-Administered Medications Medication Dose Route Frequency Provider Last Rate Last Admin ??? 0.9% NaCl infusion Intravenous Continuous Jackelyn Licona MD ??? 0.9% NaCl injection 3 mL 3 mL Intracatheter pre-Procedure multiple Jackelyn Licona MD Review of systems: Chest pain: No. Shortness of breath: No. Review of systems otherwise negative. Physical Exam: Ht 1.803 m (5' 11 ) Wt 120.7 kg (266 lb) GENERAL: The patient is alert, oriented and in no apparent distress. HEENT: Neck supple, posterior pharynx is clear. LUNGS: Lungs are clear to auscultation. CVS: Heart sounds are normal, no murmurs. ABDOMEN: Soft, no tenderness, masses or organomegaly. EXTREMITIES: Normal. NEURO: Non-focal. Pain assessment: Absent Sedation Plan: Monitored Anesthesia Care (MAC) by the anesthesia team. Procedure Plan: Based on the above assessment, we will perform the procedures indicated above. I have discussed the plan, risks, benefits and alternatives with the patient or guardian. When assessment above was not obtained immediately before the procedure, I have reassessed this patient and there are no changes. Jackelyn Licona MD documented in this encounter Plan of Treatment Upcoming Encounters Date Type Department Care Team (Late st Contact Info) Description 07/09/2024 12:30 PM GIG TENDER Office Visit [facility] - GI [address] [place] [address], [place] [address] Twin Miller MD [address] [place] [address] [place] [address] 09/19/2024 2:00 PM CDT Office Visit [facility] - Orthopedic Surgery [facility] [place] [address] Larry Alexander MD [address] [facility] [address] [place] [address] documented as of this encounter Goals Goal [...] Procedure Name Priority Date/Time Associated Diagnosis Comments PATHOLOGY TISSUE Routine 10/07/2022 1:53 PM CDT 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) [place] ED EGD FLEX TRANSORAL DX 10/07/2022 1:40 PM CDT 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) Special Needs EGD Received: Today Call patient Naye Myrick RN [facility] Schedulers - Endoscopy Pool Please schedule patient for an upper EGD with Dr. Licona, next available. Thank you. Naye ?? Received Date Received Time Aug 23, 2022 12:53 PM GLUCOSE - POINT OF CARE Routine 10/07/2022 1:28 PM CDT EGD Routine 10/07/2022 1:17 PM CDT documented in this encounter Results * PATHOLOGY TISSUE (10/07/2022 1:53 PM CDT) Case Report Surgical Pathology Report ? Case: [id number] ? Authorizing Provider: ??Jackelyn Licona MD ? Collected: ? 10/07/2022 01:53 PM ? Ordering Location: ? [facility] ?Received: ?10/07/2022 02:55 PM ? Pathologist: ? Paz Claudio MD ? Specimen: ?Gastric, gastric biopsies r/o h. pylori ? 10/08/2022 2:17 PM [facility] Final Diagnosis Stomach, biopsy (A): - Antral and oxyntic mucosa: proton pump inhibitor effect in oxyntic mucosa; negative for inflammation and Helicobacter on H and E stain 10/08/2022 2:17 PM [facility] Microscopic Description and Comment Microscopic examination substantiates the final diagnosis. 10/08/2022 2:17 PM [facility] Clinical History The patient is a 71 years old man with portal hypertension, rule out esophageal varices. Operative findings/procedure: Erythematous mucosa in the antrum, biopsied. No polyps mentioned. 10/08/2022 2:17 PM [facility] Gross Description The requisition and specimen(s) are identified with the patient's name Mason Keys. Received in formalin, specimen A , are 6 pink-poe tissues, 0.1-0.4 cm in greatest dimension and 1.4 x 0.2 x 0.1 cm in aggregate, submitted in toto in cassette A1. DF 10/08/2022 2:17 PM [facility] Disclaimer The performance characteristics of all immunohistochemical and indirect immunofluorescence stains (if any) cited in this report were determined by the Histopathology Laboratory of [facility]. Some of these tests were developed by [...] attending (teaching) pathologist. 10/08/2022 2:17 PM CDT [facility] Embedded Images 10/08/2022 2:17 PM CDT [facility] Biopsy, NOS GASTRIC CONTENTS SPECIMEN / Unknown 10/07/2022 1:53 PM CDT 10/07/2022 2:55 PM CDT Comment:Pre-op diagnosis: 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 (CMS/HCC) [K75.81, K74.60] Jackelyn Licona MD LAB - PATHOLOGY/CYTO LOGY ORDERABLES [facility] [address] [place] [address], [facility] [phone] * GLUCOSE - POINT OF CARE (10/07/2022 1:28 PM CDT) Glucose WB/POC 111 70 - 115 mg/dL 10/07/2022 1:29 PM CDT [facility] Specimen Type Venous 10/07/2022 1:29 PM CDT [facility] Blood BLOOD SPECIMEN / Unknown 10/07/2022 1:28 PM CDT 10/07/2022 1:29 PM CDT Jackelyn Licona MD LAB - POINT OF CARE ORDERABLES Performing Organization Address [facility]/State/ZIP Co de Phone Number [facility] [address] [place] [address], [facility] [phone] * EGD (10/07/2022 1:17 PM CDT) Report Endoscopy POC Endoscopy Department Report _ Patient Name: Mason Keys ?Procedure Date: 10/07/2022 1:17 PM ? [...] Procedure Code(s): ? --- Professional --- ? 21035, Esophagogastroduod enoscopy, flexible, transoral; with biopsy, ? single or multiple Diagnosis Code(s): ?--- Professional --- ?K76.6, Portal hypertension ?K31.89, Other diseases of stomach and duodenum ?K26.4, Chronic or unspecified duodenal ulcer with ?hemorrhage CPT copyright 2019 [employer]. All rights reserved. The codes documented in this report are preliminary and upon protective signal installer helper review may be revised to meet current compliance requirements. Jackelyn Licona, 10/07/2022 2:23:01 PM Note Initiated On: 10/07/2022 1:17 PM Number of Addenda: 0 ? [facility] ? 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 documented in this encounter Administered Medications Inactive Administered Medications - up to 3 most recent administrations Medication Order MAR Action Action Date Dose Rate Site 0.9% NaCl infusion at 20 mL/hr, Intravenous, CONTINUOUS, Starting on Kellen 5 at 1300, Until Kellen 523 at 1630, Pre-procedure (GI) 0.9% NaCl injection 3 mL 3 mL, Intracatheter, PRE-PROCEDURE MULTIPLE, Starting on Kellen 5 at 1255, Until Kellen 5/23 at 1630, For Saline Lock flushes if one is inserted for Bronchoscopy/Endoscopy procedure., Pre-procedure (GI) documented in this encounter Active and Recently Administered Medications Times are shown in CDT. Scheduled Medication Order 10/05/2022 10/06/2022 10/07/2022 0.9% NaCl injection 3 mL 3 mL, Intracatheter, PRE-PROCEDURE MULTIPLE, Starting on Kellen 5/23 at 1255, Until Kellen 5//23 at 1630, For Saline Lock flushes if one is inserted for Bronchoscopy/Endoscopy procedure., Pre-procedure (GI) Continuous Medication Order 10/05/2022 10/06/2022 10/07/2022 0.9% NaCl infusion at 20 mL/hr, Intravenous, CONTINUOUS, Starting on Kellen 5 at 1300, Until Kellen 523 at 1630, Pre-procedure (GI) 1300 (Due) documented in this encounter Additional Health Concerns Infection Onset Date Last Indicated Resolved Time 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
--- OUTSIDE RECORDS SUMMARY | 2024-05-24 23:34 | XMS_ITS | Encounter Summary ---
Author Organization [facility] Address [address] [facility] [place] [address] Care Team Providers Care Wildland Fire Fighter Name Role Phone Unknown, Provider Primary Care Provider Unavaila ble Encounter Details Date Type Department Care Team (Late st Contact Info) Description 10/07/2022 Orders Only [facility] - [address] [facility], [place] [address] Jackelyn Licona MD [address] [place] [phone] Social History Tobacco Use Types Packs/Day Years [...] st Contact Info) Description 07/09/2024 12:30 PM IRON GUARDRAIL INSTALLER Office Visit [facility] - GI [address] [facility], [place] [address] Twin Miller MD [facility] DIV [place] [address] 09/19/2024 2:00 PM CDT Office Visit [facility] - Orthopedic Surgery [address] [place] [phone] Larry Alexander MD [address] [facility] [address] [place] [address] documented as of this encounter Goals Goal [...] documented as of this encounter Care Teams Wildland Fire Fighter Relationship Specialty Start Date End Date Unknown, Provider PCP - General 08/23/22 10/12/23 documented as of this encounter
--- OUTSIDE RECORDS SUMMARY | 2024-05-24 23:34 | XMS_ITS | Encounter Summary ---
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) Lower extremity edema Cirrhosis of liver without ascites, unspecified hepatic cirrhosis type (HCC) Screening of cancer Procedures US ABDOMEN LIMITED Jackelyn Licona MD [address] [place] [address] [address] [place] [address] Referral ID Status Reason Start Date Expiration Date Visits Re quested Visits Authorized [id number] Closed 08/17/2021 08/17/2022 1 1 Reason for Visit * Radiology Services (Routine) - Closed Specialty Diagnoses / Procedures Referred By Contac t Referred To Contact Ultrasound Diagnoses 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) Lower extremity edema Cirrhosis of liver without ascites, unspecified hepatic cirrhosis type (HCC) Screening of cancer Procedures US ABDOMEN LIMITED Jackelyn Licona MD [address] [place] [address] [facility] [address] [place] [address] Referral ID Status Reason Start Date Expiration Date Visits Re quested Visits Authorized [id number] Closed 08/17/2021 08/17/2022 1 1 Encounter Details Date Type Department Care Team (Late st Contact Info) Description 08/25/2021 12:24 PM CDT - 08/25/2021 11:59 PM CDT Hospital Encounter [facility] [address] [place] [address] Jackelyn Licona MD [address] [place] [address] Discharge Disposition: Home or Self Care Social [...] by mouth at bedtime May cause drowsiness. HENRIQUEZTRI AEROSPHERE 160-9-4.8 MCG/ACT AERO Inhale 2 (two) [...] (one) tablet by mouth daily with breakfast metoprolol succinate XL 24hr (TOPROL XL) 50 [...] mouth 2 times daily 10/12/2023 nystatin (MYCOSTATIN) 985681 UNIT/GM powder Apply to affected area 2 [...] (OPTICHAMBER CHAZ) MISC as directed 11/17/2020 10/12/2023 spironolactone (ALDACTONE) 50 MG tablet Take 1 (one) tablet by mouth once daily 30 tablet 5 12/30/2020 02/23/2022 tobramycin (TOBREX) 0.3 % ophthalmic solution PLACE 2 DROPS IN EACH EYE EVERY 4 HOURS 09/07/2019 10/20/2021 triamcinolone acetonide (KENALOG) 0.1 % cream Apply to affected area 2 times daily as needed Apply to rash daily as needed. 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 Office Visit [facility] - GI [address] [place] [address], [facility] [place] [address] Twin Miller MD [address] [place] [address] [place] [address] 09/19/2024 2:00 PM CDT Office Visit [facility] - Orthopedic Surgery [facility] [place] [phone] Larry Alexander MD [address] [facility] [address] [place] [address] documented as of this encounter Goals Goal [...] Associated Diagnosis Comments US ABDOMEN LIMITED Routine 08/25/2021 1: 32 PM CDT 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 Hepatic steatosis without focal liver mass. 2. Cholelithiasis without evidence of acute cholecystitis. Dictated by Julienne Son MD (resident manager). I, Dr. MIKKI CHAMBERS have personally reviewed and interpreted this examination/study. This report was electronically signed by MIKKI CHAMBERS ??on 08/25/2021 1:34 PM . Narrative 08/25/2021 1:34 PM CDT EXAM: Limited abdominal ultrasound HISTORY: K75.81: 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 COMPARISON: Limited abdominal ultrasound 03/19/2021 FINDINGS: The liver is increased in echogenicity, consistent with diffuse hepatic steatosis. There is smooth liver surface contour. No discrete hepatic mass or intrahepatic biliary dilatation is seen. Color Doppler evaluation demonstrates patency of the hepatic and portal veins. Multiple small shadowing echogenic foci in the gallbladder are compatible with gallstones. No pericholecystic fluid is seen. The gallbladder wall is not thickened, measuring 2.8 mm. Sonographic Maria's sign is negative. The common bile duct is nondilated, measuring 3.7 mm. The right kidney measures 10.4 x 5.1 x 4.8 cm. Limited views reveal no evidence of hydronephrosis. The visualized pancreas echogenicity is within normal limits. The spleen measures 12.7 cm in length. No ascites is present. Procedure Note Mikki Chambers MD - 08/25/2021 EXAM: Limited abdominal ultrasound HISTORY: K75.81: 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 COMPARISON: Limited abdominal ultrasound 03/19/2021 FINDINGS: The liver is increased in echogenicity, consistent with diffuse hepatic steatosis. There is smooth liver surface contour. No discrete hepaticmass or intrahepatic biliary dilatation is seen. Color Doppler evaluation demonstrates patency of the hepatic and portal veins. Multiple small shadowing echogenic foci in the gallbladder arecompatible with gallstones. No pericholecystic fluid is seen. The gallbladder steven not thickened, measuring 2.8 mm. Sonographic Maria's sign is negative. The common bile duct is nondilated, measuring 3.7 mm. The right kidney measures 10.4 x 5.1 x 4.8 cm. Limited views reveal no evidence of hydronephrosis. The visualized pancreas echogenicity iswithin normal limits. The spleen measures 12.7 cm in length. No ascites is present. IMPRESSION: 1. Hepatic steatosis without focal liver mass. 2. Cholelithiasis without evidence of acute cholecystitis. Dictated by Julienne Son MD (resident manager). I, Dr. MIKKI CHAMBERS have personally reviewed and interpreted this examination/study. This report was electronically signed by MIKKI CHAMBERS on 08/25/2021 1:34 PM . Jackelyn Licona MD ORDERABLES documented in this encounter Visit [...] documented as of this encounter Care Teams Malt Roaster Relationship Specialty Start Date End Date Briana Medeiros MD [address] [place] [address] PCP - General 02/15/18 02/22/22 documented as of this encounter
--- OUTSIDE RECORDS SUMMARY | 2024-05-24 23:34 | XMS_ITS | Encounter Summary ---
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 Office Visit [facility] - GI [address] [facility], [place] [address] Twin Miller MD [facility] [place] [address] 09/19/2024 2:00 PM CDT Office Visit [facility] - Orthopedic Surgery [address] [facility] [place] [phone] Larry Alexander MD [address] [facility] [address] [place] [address] documented as of this encounter Goals Goal [...] documented as of this encounter Care Teams Marine Equipment Design Engineer Relationship Specialty Start Date End Date Unknown, Provider PCP - General 08/23/22 10/12/23 documented as of this encounter
--- OUTSIDE RECORDS SUMMARY | 2024-05-24 23:34 | XMS_ITS | Encounter Summary ---
Author Organization [facility] Address [address] [place] [address] Care Team Providers Care Cotton Classer Aide Name Role Phone Unknown, Provider Primary Care Provider Unavaila ble Reason for Visit * Reason Comments Referral Pt sent to ED by [facility] to r/o dvt in RLE. RLE red, swollen, and painful. Pt recently treated for cellulitis in LLE, pt just finished course of cephalexin. Pt denies nausea, vomiting, fever, chills, diarrhea. Encounter Details Date Type Department Care Team (Late st Contact Info) Description 08/23/2022 8:28 PM CDT - 08/23/2022 10:54 PM CDT Emergency [facility] EMERGENCY DEPARTMENT [address] [place] [phone] Neo Horne MD [address] [place] [address] [place] [id number] Pain of right lower extremity; Leg swelling Discharge Disposition: Home or Self Care Social [...] Sign Reading Time Taken Comments Blood Pressure 113/87 08/23/2022 5:58 PM CDT Pulse 67 08/23/2022 5:58 PM CDT Temperature 36.6 ??C (97.9 ??F) 08/23/2022 12:58 PM C DT Respiratory Rate 18 08/23/2022 5:58 PM CDT Oxygen Saturation 98% 08/23/2022 5:58 PM CDT Inhaled Oxygen Concentration - - Weight 120.7 kg (266 lb) 08/23/2022 12:58 PM CDT Height 180.3 cm (5' 11 ) 08/23/2022 12:58 PM CDT Body Mass Index 37.1 08/23/2022 12:58 PM CDT documented in this encounter Functional [...] No 04/29/2019 documented as of this encounter Discharge Instructions * Discharge Instructions* Neo Horne MD - 08/23/2022 10:08 PM CDT Your Doppler study today showed no blood clot in your leg. Your labs today were normal for you. Call your primary care doctor and liver doctors for follow-up. Return if fever or worsening or new problems. Your white count today was normal but your inflammatory markers were elevated. I will put you on a course antibiotics and have you follow-up with your primary care doctor. documented in this encounter Medications at Time [...] by mouth at bedtime May cause drowsiness. SHAVONI AEROSPHERE 160-9-4.8 MCG/ACT AERO Inhale 2 (two) [...] daily as needed for Cough 02/15/2019 10/12/2023 clindamycin (Cleocin) 300 MG capsule Take 1 (one) capsule by mouth 4 times daily for 7 days 28 capsule 08/23/2022 08/30/2022 cyanocobalamin (VITAMIN B-12) 500 MCG tablet Take 1 (one) tablet by mouth once daily 11/03/2023 diphenhydrAMINE (BENADRYL) 25 MG capsule Take 1 (one) capsule by mouth 2 times daily 10/12/2023 folic acid (Folvite) 1 MG tablet Take 1 (one) tablet by mouth once daily 02/11/2022 10/12/2023 gabapentin (NEURONTIN) 100 MG capsule Take 3 (three) capsules by mouth 2 times daily 10/12/2023 nystatin 354608 UNIT/GM cream - BACITRACIN ointment 50:50 CREA [...] as needed. 10/12/2023 vitamin D, ergocalciferol, (DRISDOL) 35741 UNITS capsuleIndications:Ot her cirrhosis of liver (HCC) Take 50,000 Units by mouth every 7 days 0 02/02/2018 03/21/2023 documented as of this encounter ED Notes * Stacey Raza RN - 08/23/2022 10:46 PM CDT Pt is awake and alert GCS 15. Breathing is regular and nonlabored. Skin is warm and dry. Gait is steady with no assistance. Proper discharge clothing. Discharge teaching successful as evidence by no further questions/concerns/needs. Pt ready for discharge. * Neo Horne MD - 08/23/2022 9:15 PM CDT Emergency Physician note History: Patient is a 71 y/o male with a past medical history of end stage liver failure, CAD, and COPD c/o leg swelling. Patient went to his PCP for leg swelling on 07/21 and was advised to go to theED. Patient was then admitted for half a week at an outside hospital and treated for cellulitis.. After discharge he was advised to keep feet elevated. Tuesday night (08/21) swelling started again. Patient mentions mild SOB but denies fever, chills, nausea, vomiting, and any other modifying factors. Patient was seen by his liver doctor's today concern for DVT and sent for ultrasound here HPI: Onset- Tuesday evening (08/21) Timing- constant Location- lower extremities Quality- very swollen Severity- severe Context- see above Aassociated sxs- Mild SOB Exacerbating- None mentioned Alleviating- None mentioned Past Medical History: Diagnosis Date ??? Actinic [...] ??? S/P PICC central line placement 02/13/2019 [facility] VAT R basilic ??? Seizures (CMS/HCC) ??? Squamous cell carcinoma ??? VRE (vancomycin resistant enterococcus) culture positive 04/29/2019 rectal swab+ Past Surgical History: Procedure Laterality Date ??? Cataract Removal Bilateral ??? ENDOSCOPY, UPPER N/A 09/15/2017 N/A; ESOPHAGOGASTRODUODENOSCOPY (EGD) DIAGNOSTIC ??? ENDOSCOPY, UPPER N/A 07/03/2020 N/A; ESOPHAGOGASTRODUODENOSCOPY (EGD) DIAGNOSTIC--MARTINEZ ??? EXCISION BURSA Right 02/08/2019 Right; EXCISION [...] ABSCESS ??? Tracheostomy N/A 09/13/2017 N/A; TRACHEOSTOMY Social History Tobacco Use ??? Smoking status: Former Types: Cigarettes Quit date: 06/06/1981 Years since quittin.2 ??? Smokeless tobacco: Never Vaping Use ??? Vaping Use: Never used Substance Use Topics ??? Alcohol use: No ??? Drug use: No Allergies Allergen Reactions ??? Penicillins Skin Reactions and Swelling ??? Levaquin [Levofloxacin] Eye Itching red around the eyes , puffy, itchy ??? Green [Peppers] GI Discomfort Green and red peppers ??? Scopace [Scopolamine] Other and MARBLE FINISHER Dysfunction delirium ??? Tobramycin Eye Itching red around the eyes, puffy, itchy No current facility-administered medications for this encounter. Current Outpatient Medications Medication Sig [...] tablet by mouth once daily ??? nystatin 383789 UNIT/GM cream - BACITRACIN ointment 50:50 CREA [...] as needed. ??? vitamin D, ergocalciferol, (DRISDOL) 83492 UNITS capsule Take 50,000 Units by mouth every 7 days (Patient not taking: Reported on 08/23/2022) Exam: Vitals: 08/23/22 1258 08/23/22 1532 08/23/22 1758 BP: 112/53 131/80 113/87 Pulse: 93 65 67 Resp: 18 18 18 Temp: 97.9 ??F (36.6 ??C) SpO2: 100% 99% 98% Weight: 120.7 kg (266 lb) Height: 1.803 m (5' 11 ) Cv- heart without murmur, normal pulses bilateral radial Resp- Moderate scattered wheezing Abd- soft, Ms- bilateral leg edema right greater than left. Chronic appearing skin changes with hyperpigmentation bilateral lower Skin- chronic skin changes Neuro- normal motor all 4 Psych- normal affect Lymph- MDM: DDx: DVT vs cellulitis vs low protein vs other Plan: Venous dopler, labs DATA REVIEW: Labs Reviewed CBC W AUTO DIFFERENTIAL - Abnormal; Notable for the following components: Result Value RDW-SD 51.2 (*) RDW-CV 14.9 (*) Lymphocytes % 13.0 (*) Monocytes % 13.2 (*) Eosinophils % 6.2 (*) Lymphocyte Absolute 1.03 (*) Eosinophils Absolute 0.49 (*) Basophils Absolute 0.09 (*) Immature Granulocytes % 2.4 (*) All other components within normal limits COMPREHENSIVE METABOLIC PANEL - Abnormal; Notable for the following components: Creatinine 1.60 (*) Potassium 4.6 (*) Calcium 10.3 (*) Albumin/Globulin Ratio 1.0 (*) eGFR by CKD-EPI 45 (*) All other components within normal limits ERYTHROCYTE SEDIMENTATION RATE - Abnormal; Notable for the following components: Erythrocyte Sedimentation Rate Westergren 65 (*) All other components within normal limits C-REACTIVE PROTEIN - Abnormal; Notable for the following components: C-Reactive Protein 1.8 (*) All other components within normal limits Lab interpret: Labs stable for patient, white count normal but positive inflammatory markers VAS RIGHT VENOUS DUPLEX LE (Results Pending) Rad interpret: Note from triage indicates they were called stating venous Dopplers were negative for DVT ED COURSE 2100: Venous doppler ordered at triage, negative for blood clots. Labs not ordered at triage. Will order labs. Give albuterol inhaler for wheezing. Discussed with the patient normal white count but elevated inflammatory markers. With patient's history will give course antibiotics and close outpatient follow-up. pt counseled on findings and plan Clinical Impression: Acute on chronic leg edema Disposition: Discharge Cary Sanchez 08/23/2022 9:30 PM * Mounika Alonzo - 08/23/2022 7:43 PM CDT Pt in waiting room, NAD noted, no request at this time. * Mounika Alonzo - 08/23/2022 5:58 PM CDT Pt in waiting room w/ , NAD noted, requesting update on status. * Mounika Alonzo - 08/23/2022 3:31 PM CDT Pt in waiting room, NAD noted, no request at this time. * Margoth Gustafson PA-C - 08/23/2022 2:02 PM CDT Called from US lab. NEG DVT study. * Hoa Evans RN - 08/23/2022 1:09 PM CDT Pt sent to ED by transplant clinic to r/o dvt in RLE. RLE red, swollen, and painful. Pt recently treated for cellulitis in LLE, pt just finished course of cephalexin. Pt denies nausea, vomiting, fever, chills, diarrhea, SOB or CP. * Margoth Gustafson PA-C - 08/23/2022 1:08 PM CDT Medical Screening Exam 08/23/2022 1:08 PM Provider contact with the patient Mason Keys CC: Referral Chief complaint narrative was entered by triage nurse, not by provider Provider in Triage HPI: Mason Keys is a pleasant 71 year old male from liver clinic for DVT r/o. Recent admission for cellulitis of LLE, recently completed Keflex course. Chronic SOB d/t COPD, not new or worsening. No hemoptysis. Limited Chart History: Past Medical History: Diagnosis Date ??? [...] ??? S/P PICC central line placement 02/13/2019 [facility] VAT R basilic ??? Seizures (CMS/HCC) ??? Squamous cell carcinoma ??? VRE (vancomycin resistant enterococcus) culture positive 04/29/2019 rectal swab+ Past Surgical History: Procedure Laterality Date ??? Cataract Removal Bilateral ??? ENDOSCOPY, UPPER N/A 09/15/2017 N/A; ESOPHAGOGASTRODUODENOSCOPY (EGD) DIAGNOSTIC ??? ENDOSCOPY, UPPER N/A 07/03/2020 N/A; ESOPHAGOGASTRODUODENOSCOPY (EGD) DIAGNOSTIC--MARTINEZ ??? EXCISION BURSA Right 02/08/2019 Right; EXCISION [...] ABSCESS ??? Tracheostomy N/A 09/13/2017 N/A; TRACHEOSTOMY No current facility-administered medications for this encounter. Current Outpatient Medications Medication Sig Dispense Refill ??? acetaminophen (TYLENOL) 325 MG tablet Take 2 (two) tablets by mouth every 4 hours as needed ??? albuterol (PROVENTIL;VENTOLIN) (5 MG/ML) 0.5% nebulizer solution 2.5 mg. (Patient taking differently: Inhale 2.5 mg by mouth 4 times daily) 1 Box [...] tablet by mouth once daily ??? nystatin [id number] UNIT/GM cream - BACITRACIN ointment 50:50 CREA [...] as needed. ??? vitamin D, ergocalciferol, (DRISDOL) 00934 UNITS capsule Take 50,000 Units by mouth every 7 days (Patient not taking: Reported on 08/23/2022) 0 Allergies Allergen Reactions ??? Penicillins Skin Reactions and Swelling ??? Levaquin [Levofloxacin] Eye Itching red around the eyes , puffy, itchy ??? Green [Peppers] GI Discomfort Green and red peppers ??? Scopace [Scopolamine] Other and MARBLE FINISHER Dysfunction delirium ??? Tobramycin Eye Itching red around the eyes, puffy, itchy PCP: Napoleon Birmingham MD (Above may be pending completion) Review of Systems: Primary System Noted in HPI. Constitutional: No fevers or chills Psychiatric: No mood changes All other systems reviewed and are negative. Vital Signs reviewed in Triage BP 112/53 Pulse 93 Temp 97.9 ??F (36.6 ??C) (Oral) Resp 18 Ht 1.803 m (5' 11 ) Wt 120.7 kg (266 lb) SpO2 100% Pertinent Physical Findings: Constitutional: vitals as above, WDWN Head: Head normocephalic, atraumatic Eyes: conjunctiva clear ENT: no rhinorrhea Neck: neck supple, no nuchal rigidity Resp: respirations even and unlabored, lungs clear bilaterally CV: Heart RRR, no m/c/r/g Abd: nondistended Skin: warm, dry; erythema to BLE and swelling R>L; TTP. MSK: ambulatory, moves all extremities Neuro: A&O x 3, CN 2-12 grossly intact bilat Psych: Normal affect Complete physical exam is limited due to patient sitting in up right position in chair MDM: I have reviewed all lab and imaging resulted ordered during this visit and available at the time ofthis note. Triage notes and available nursing notes reviewed. Previous medical record reviewed whenavailable. Management options include but not limited to: physical exam, laboratory testing, discussion with other providers. PLAN Diagnostic tests ordered: No orders of the defined types were placed in this encounter. MEDICATIONS FOR CURRENT ENCOUNTER: ?? SCHEDULED MEDICATIONS: ?? No current facility-administered medications for this encounter. ?? CONTINUOUS MEDICATIONS: ?? No current facility-administered medications for this encounter. ?? PRN MEDICATIONS: ?? No current facility-administered medications for this encounter. Based on the Medical Screening Exam performed and diagnostic tests at this time, further evaluationis indicated and will be performed. Patient will be transferred to a main ED room when one is available and care will be transferred to ER provider. 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 - GI [address] [place] [address], [place] [address] Twin Miller MD [address] [place] [address] [place] [address] 09/19/2024 2:00 PM CDT Office Visit [facility] - Orthopedic Surgery [address] [place] [id number] Larry Alexander MD [address] [facility] [address] [place] [address] documented as of this encounter Goals Goal [...] Procedure Name Priority Date/Time Associated Diagnosis Comments C-REACTIVE PROTEIN MYRNA 08/23/2022 8: 24 PM CDT ERYTHROCYTE SEDIMENTATION RATE STAT 08/23/2022 8:24 PM CDT CBC W AUTO DIFFERENTIAL STAT 08/23/2022 8:24 PM CDT COMPREHENSIVE METABOLIC PANEL STAT 08/23/2022 8:24 PM CDT VAS RIGHT VENOUS DUPLEX LE STAT 08/23/2022 1:53 PM CDT Pain of right lower extremity Leg swelling documented in this encounter Results * (ABNORMAL) C-REACTIVE PROTEIN (08/23/2022 8:24 PM CDT) C-Reactive Protein 1.8(H) <=0.5 mg/dL 08/23/2022 9:05 PM CDT [facility] Blood BLOOD SPECIMEN / Unknown Venipuncture / Unknown 08/23/2022 8:24 PM CDT 08/23/2022 8:31 PM CDT Neo Horne MD LAB - CHEMISTRY ORDE RAISA Performing Organization Address City/[facility]/ZIP Co de Phone Number [facility] [address] [place] [address], [facility] [phone] * (ABNORMAL) ERYTHROCYTE SEDIMENTATION RATE (08/23/2022 8:24 PM CDT) Erythrocyte Sedimentation Rate Westergren 65(H) 0 - 20 MM/HR 08/23/2022 8:45 PM CDT [facility] Blood BLOOD SPECIMEN / Unknown Venipuncture / Unknown 08/23/2022 8:24 PM CDT 08/23/2022 8:32 PM CDT Neo Horne MD LAB - HEMATOLOGY ORD ERABLES [facility] [address] [place] [address], [facility] [phone] * (ABNORMAL) COMPREHENSIVE METABOLIC PANEL (08/23/2022 8:24 PM [facility]) BUN 26 7 - 26 mg/dL 08/23/2022 8:58 PM [facility] Creatinine 1.60(H) 0.71 - 1.16 mg/dL 08/23/2022 8:58 PM [facility] Sodium 141 136 - 145 mmol/L 08/23/2022 8:58 PM [facility] Potassium 4.6(H) 3.5 - 4.5 mmol/L 08/23/2022 8:58 PM [facility] Chloride 102 98 - 107 mmol/L 08/23/2022 8:58 PM [facility] CO2 26 22 - 29 mmol/L 08/23/2022 8:58 PM [facility] Glucose 113 70 - 115 mg/dL 08/23/2022 8:58 PM [facility] Calcium 10.3(H) 8.4 - 10.2 mg/dL 08/23/2022 8:58 PM [facility] Protein Total 7.3 6.0 - 8.3 g/dL 08/23/2022 8:58 PM [facility] Albumin 3.7 3.4 - 5.0 g/dL 08/23/2022 8:58 PM [facility] Bilirubin Total 0.6 0.2 - 1.2 mg/dL 08/23/2022 8:58 PM [facility] Alkaline Phosphatase 113 40 - 150 U/L 08/23/2022 8:58 PM [facility] ALT 27 5 - 55 U/L 08/23/2022 8:58 PM [facility] AST 24 5 - 34 U/L 08/23/2022 8:58 PM [facility] Anion Gap 18 8 - 18 08/23/2022 8:58 PM [facility] BUN/Creatinine Ratio 16 7 - 23 08/23/2022 8:58 PM [facility] Osmolality Calculated 298 270 - 300 mOsm/kg 08/23/2022 8:58 PM [facility] Albumin/Globulin Ratio 1.0(L) 1.1 - 2.3 08/23/2022 8:58 PM [facility] eGFR by CKD-EPI 45(L) >=90 mL/min/1.7 3 m2 08/23/2022 8:58 PM [facility] Blood BLOOD SPECIMEN / Unknown Venipuncture / Unknown 08/23/2022 8:24 PM CDT 08/23/2022 8:32 PM CDT Neo Horne MD LAB - CHEMISTRY ROYCE KLINE [facility] [place] Organization Address City/State/ZIP Co de Phone Number [facility] [address] [place] [address], [facility] [phone] * (ABNORMAL) CBC W AUTO DIFFERENTIAL (08/23/2022 8:24 PM CDT) WBC 7.9 3.5 - 10.5 10? 3 /uL 08/23/2022 8:37 PM [facility] RBC 4.71 4.30 - 5.70 10? 6 /uL 08/23/2022 8:37 PM [facility] Hemoglobin 14.1 12.0 - 17.6 g/dL 08/23/2022 8:37 PM [facility] Hematocrit 44.3 35.2 - 51.7 % 08/23/2022 8:37 PM [facility] MCV 94.1 80.7 - 98.3 fL 08/23/2022 8:37 PM [facility] MCH 29.9 26.7 - 34.0 pg 08/23/2022 8:37 PM [facility] MCHC 31.8 30.8 - 35.9 g/dL 08/23/2022 8:37 PM [facility] RDW-SD 51.2(H) 36.0 - 50.0 fL 08/23/2022 8:37 PM [facility] RDW-CV 14.9(H) 11.2 - 14.8 % 08/23/2022 8:37 PM [facility] Platelet Count 194 150 - 400 10? 3 /uL 08/23/2022 8:37 PM [facility] MPV 12.4 9.4 - 12.9 fL 08/23/2022 8:37 PM [facility] nRBC Absolute 0.00 0 10? 3 /uL 08/23/2022 8:37 PM [facility] nRBC Auto 0.0 0 /100 WBC 08/23/2022 8:37 PM [facility] Neutrophils % 64.1 35.0 - 70.0 % 08/23/2022 8:37 PM [facility] Lymphocytes % 13.0(L) 20.0 - 43.0 % 08/23/2022 8:37 PM [facility] Monocytes % 13.2(H) 5.0 - 13.0 % 08/23/2022 8:37 PM [facility] Eosinophils % 6.2(H) 0.0 - 6.0 % 08/23/2022 8:37 PM [facility] Basophil % 1.1 0.0 - 2.0 % 08/23/2022 8:37 PM [facility] Neutrophils Absolute 5.08 1.60 - 7.00 10? 3 /uL 08/23/2022 8:37 PM [facility] Lymphocyte Absolute 1.03(L) 1.10 - 3.90 10? 3 /uL 08/23/2022 8:37 PM [facility] Monocytes Absolute 1.05 0.26 - 1.07 10? 3 /uL 08/23/2022 8:37 PM [facility] Eosinophils Absolute 0.49(H) 0.00 - 0.47 10? 3 /uL 08/23/2022 8:37 PM [facility] Basophils Absolute 0.09(H) 0.00 - 0.08 10? 3 /uL 08/23/2022 8:37 PM [facility] Immature Granulocytes % 2.4(H) 0.0 - 1.0 % 08/23/2022 8:37 PM [facility] Immature Granulocytes Absolute 0.19 08/23/2022 8:37 PM [facility] Blood BLOOD SPECIMEN / Unknown Venipuncture / Unknown 08/23/2022 8:24 PM CDT 08/23/2022 8:32 PM CDT Neo Horne MD LAB - HEMATOLOGY ORD ERABLES [facility] [address] [place] [address], [facility] [phone] * VAS RIGHT VENOUS DUPLEX LE (08/23/2022 1:53 PM CDT) Anatomical Region Laterality Modality Lower Extremity Intravascular Ul trasound 08/23/2022 1:33 PM CDT Narrative Procedure Note Ja Khoury MD - 08/24/2022 Margoth Gustafson PA-C VASCULAR LAB ORDER [place] documented in this encounter Visit Diagnoses Diagnosis Pain of right lower extremity Leg swelling Swelling of limb documented in this encounter Administered Medications Inactive Administered Medications - up to 3 most recent administrations Medication Order MAR Action Action Date Dose Rate Site albuterol (Proventil;Ventolin) (5 MG/ML) 0.5% nebulizer solution 2.5 mg 2.5 mg, Inhalation, NOW, 1 dose, On Tue08/23/22 at 2230 $ Given 08/23/2022 10:24 PM CDT 2.5 mg clindamycin (Cleocin) capsule 300 mg 300 mg, Oral, NOW, 1 dose, On Tue08/23/22 at 2215, Indication for anti-infective therapy: Risk of Infection $ Given 08/23/2022 10:24 PM CDT 300 mg HYDROcodone-acetaminophen (Renner) 5-325 MG tablet 1 tablet 1 tablet, Oral, NOW, 1 dose, On Tue08/23/22 at 2230, Patient preference for lesser PRN pain meds may be honored when the patient requests a less strong medication, a lower dose, or a less intrusive route of administration when the lesser drug, dose and route have been ordered for the patient. This patient request must be documented in the MAR. $ Given 08/23/2022 10:24 PM CDT 1 tablet ipratropium (Atrovent) nebulizer solution 0.5 mg 0.5 mg, Inhalation, NOW, 1 dose, On Tue08/23/22 at 2230 $ Given 08/23/2022 10:24 PM CDT 0.5 mg documented in this encounter Active and Recently Administered Medications Times are shown in CDT. Scheduled Medication Order 08/21/2022 08/22/2022 08/23/2022 albuterol (Proventil;Ventolin) (5 MG/ML) 0.5% nebulizer solution 2.5 mg (COMPLETED)(Linked Group 1) 2.5 mg, Inhalation, NOW, 1 dose, On Tue08/23/22 at 2230 2224 ($ Given - Prov ider: Stacey Raza, DONTAE) clindamycin (Cleocin) capsule 300 mg (COMPLETED) 300 mg, Oral, NOW, 1 dose, On Tue08/23/22 at 2215, Indication for anti-infective therapy: Risk of Infection 2223 ($ Given - Prov ider: Stacey Raza, DONTAE) HYDROcodone-acetaminophen (Renner) 5-325 MG tablet 1 tablet (COMPLETED) 1 tablet, Oral, NOW, 1 dose, On Tue08/23/22 at 2230, Patient preference for lesser PRN pain meds may be honored when the patient requests a less strong medication, a lower dose, or a less intrusive route of administration when the lesser drug, dose and route have been ordered for the patient. This patient request must be documented in the MAR. 2223 ($ Given - Prov ider: Stacey Raza, DONTAE) ipratropium (Atrovent) nebulizer solution 0.5 mg (COMPLETED)(Linked Group 1) 0.5 mg, Inhalation, NOW, 1 dose, On Tue08/23/22 at 2230 2224 ($ Given - Prov ider: Stacey Raza RN) Linked Groups Order Group 1: albuterol (Proventil;Ventolin) (5 MG/ML) 0.5% nebulizer solution 2.5 mg (COMPLETED)Jump to med 2.5 mg, Inhalation, NOW, 1 dose, On Tue08/23/22 at 2230 And ipratropium (Atrovent) nebulizer solution 0.5 mg (COMPLETED)Jump to med 0.5 mg, Inhalation, NOW, 1 dose, On Tue08/23/22 at 2230 documented in this encounter Additional Health Concerns Infection Onset Date Last Indicated Resolved Time 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
--- OUTSIDE RECORDS SUMMARY | 2024-05-24 23:34 | XMS_ITS | Encounter Summary ---
Author Organization [facility] Address [address] [place] [address] Care Team Providers Care Ash Pit Worker Name Role Phone Unknown, Provider Primary Care Provider Unavaila ble Reason for Visit * Auth/Cert (Routine) Specialty Diagnoses / Procedures Referred By Contac t Referred To Contact Diagnoses 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) Procedures ESOPHAGOGASTRODUODENOSCOPY (EGD) DIAGNOSTIC Referral ID Status Reason Start Date Expiration Date Visits Re quested Visits Authorized [id number] 1 1 Encounter Details Date Type Department Care Team (Late st Contact Info) Description 10/07/2022 12:06 PM CDT - 10/07/2022 3:05 PM CDT Hospital Encounter [facility] OP [address] [place] [address] Jackelyn Licona MD [address] [place] [address] Surgery General Discharge Disposition: Home or Self [...] Sign Reading Time Taken Comments Blood Pressure 84/65 10/07/2022 3:00 PM CDT Pulse 84 10/07/2022 3:00 PM CDT Temperature 36 ??C (96.8 ??F) 10/07/2022 2:15 PM CDT Respiratory Rate 18 10/07/2022 3:00 PM CDT Oxygen Saturation 93% 10/07/2022 3:00 PM CDT Inhaled Oxygen Concentration - - [...] ask them during your visits. ?? Copyright [employer] 2020 Information is for End User's use only and may not be sold, redistributed or otherwise used for commercial purposes. All illustrations and images included in CareNotes?? are the copyrighted property of [employer] or [employer] The above information is an medicaid billing clerk only. It is not intended as medical [...] by mouth 2 times daily 10/12/2023 nystatin 251819 UNIT/GM cream - BACITRACIN ointment 50:50 CREA [...] as needed. 10/12/2023 vitamin D, ergocalciferol, (DRISDOL) 19755 UNITS capsuleIndications:Ot her cirrhosis of liver (HCC) [...] ??? S/P PICC central line placement 02/13/2019 [facility] VAT R basilic ??? Seizures (CMS/HCC) ??? [...] red peppers ??? 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 Tobramycin Eye Itching red [...] st Contact Info) Description 07/09/2024 12:30 PM SHUTTLER Office Visit [facility] - GI [address] [facility] [place] [address] Twin Miller MD [facility] [place] [address] 09/19/2024 2:00 PM CDT Office Visit [facility] - Orthopedic Surgery [address] [place] [address] Larry Alexander MD [address] [facility] [address] [place] [address] documented as of this encounter Goals Goal [...] CDT 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) NM ED EGD FLEX TRANSORAL DX 10/07/2022 1:40 PM CDT 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) Special Needs EGD Received: Today Call patient Naye Myrick RN P [facility] Schedulers - Endoscopy Pool Please schedule [...] Case Report Surgical Pathology Report ? Case: [id number] ? Authorizing Provider: ??Jackelyn Licona MD ? Collected: ? 10/07/2022 01:53 PM ? Ordering Location: ? [facility] ?Received: ?10/07/2022 02:55 PM ? Pathologist: ? Paz Claudio MD ? Specimen: ?Gastric, gastric biopsies r/o h. pylori ? 10/08/2022 2:17 PM CDT [facility] Final Diagnosis Stomach, biopsy (A): - Antral and oxyntic mucosa: proton pump inhibitor effect in oxyntic mucosa; negative for inflammation and Helicobacter on H and E stain 10/08/2022 2:17 PM CDT [facility] Microscopic Description and Comment Microscopic examination substantiates the final diagnosis. 10/08/2022 2:17 PM [facility] Clinical History The patient is a 71 years old man with portal hypertension, rule out esophageal varices. Operative findings/procedure: Erythematous mucosa in the antrum, biopsied. No polyps mentioned. 10/08/2022 2:17 PM T [facility] Gross Description The requisition and specimen(s) are identified with the patient's name Mason Keys. Received in formalin, specimen A , are 6 pink-poe tissues, 0.1-0.4 cm in greatest dimension and 1.4 x 0.2 x 0.1 cm in aggregate, submitted in toto in cassette A1. DF 10/08/2022 2:17 PM T [facility] Disclaimer The performance characteristics of all immunohistochemical and indirect immunofluorescence stains (if any) cited in this report were determined by the Histopathology Laboratory of [facility]. Some of these tests were developed by [...] the attending (teaching) pathologist. 10/08/2022 2:17 PM T [facility] Embedded Images 10/08/2022 2:17 PM [facility] Biopsy, NOS GASTRIC CONTENTS SPECIMEN / Unknown 10/07/2022 1:53 PM CDT 10/07/2022 2:55 PM CDT Comment:Pre-op diagnosis: 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 (CMS/HCC) [K75.81, K74.60] Jackelyn Licona MD LAB - PATHOLOGY/CYTO LOGY ORDERABLES [facility] [address] [phone] * GLUCOSE - POINT OF CARE (10/07/2022 1:28 PM CDT) Glucose WB/POC 111 70 - 115 mg/dL 10/07/2022 1:29 PM CDT [facility] Specimen Type Venous 10/07/2022 1:29 PM CDT [facility] Blood BLOOD SPECIMEN / Unknown 10/07/2022 1:28 PM CDT 10/07/2022 1:29 PM CDT Jackelyn Licona MD LAB - POINT OF CARE ORDERABLES [facility] [address] [place] [phone], [facility] [phone] * EGD (10/07/2022 1:17 PM CDT) Report [...] Procedure Code(s): ? --- Professional --- ? 84329, Esophagogastroduod enoscopy, flexible, transoral; with biopsy, ? single or multiple Diagnosis Code(s): ?--- Professional --- ?K76.6, Portal hypertension ?K31.89, Other diseases of stomach and duodenum ?K26.4, Chronic or unspecified duodenal ulcer with ?hemorrhage CPT copyright 2019 [employer]. All rights reserved. The codes documented in this report are preliminary and upon repairer resistance welding machines review may be revised to meet current compliance requirements. Jackelyn Licona, 10/07/2022 2:23:01 PM Note Initiated On: 10/07/2022 1:17 PM Number of Addenda: 0 ? [facility] ? [address] [place] [address] [facility] 10/07/2022 1:17 PM CDT Jackelyn Licona MD GI PROCEDURE ORDERAB LES [facility] documented in this encounter Visit Diagnoses Diagnosis 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) Other chronic nonalcoholic liver disease documented in this encounter Administered Medications Inactive Administered Medications - up to 3 most recent administrations Medication Order MAR Action Action Date Dose Rate Site 0.9% NaCl infusion at 20 mL/hr, Intravenous, CONTINUOUS, Starting on Kellen 10/07/22 at 1300, Until Kellen 10/07/22 at 1630, Pre-procedure (GI) 0.9% NaCl injection 3 mL 3 mL, Intracatheter, PRE-PROCEDURE MULTIPLE, Starting on Kellen 10/07/22 at 1255, Until Kellen 10/07/22 at 1630, For Saline Lock flushes if one is inserted for Bronchoscopy/Endoscopy procedure., Pre-procedure (GI) documented in this encounter Active and Recently Administered Medications Times are shown in CDT. Scheduled Medication Order 10/05/2022 10/06/2022 10/07/2022 0.9% NaCl injection 3 mL 3 mL, Intracatheter, PRE-PROCEDURE MULTIPLE, Starting on Kellen 10/07/22 at 1255, Until Kellen 10/07/22 at 1630, For Saline Lock flushes if one is inserted for Bronchoscopy/Endoscopy procedure., Pre-procedure (GI) Continuous Medication Order 10/05/2022 10/06/2022 10/07/2022 0.9% NaCl infusion at 20 mL/hr, Intravenous, CONTINUOUS, Starting on Kellen 10/07/22 at 1300, Until Kellen 10/07/22 at 1630, Pre-procedure (GI) 1300 (Due) documented in this encounter Additional Health Concerns Infection Onset Date Last Indicated Resolved Time 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
--- OUTSIDE RECORDS SUMMARY | 2024-05-24 23:34 | XMS_ITS | Encounter Summary ---
Author Organization [facility] Address [address] [place] [address] Care Team Providers Care Order Builder Name Role Phone Briana Medeiros MD Primary Care Provider [phone] Reason for Referral * Radiology Services (Routine) - Closed Specialty Diagnoses / Procedures Referred By Contac t Referred To Contact Ultrasound Diagnoses 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) Lower extremity edema Cirrhosis of liver without ascites, unspecified hepatic cirrhosis type (HCC) Screening of cancer Procedures US ABDOMEN LIMITED Jackelyn Licona MD [address] [place] [address] [address] [place] [address] Referral ID Status Reason Start Date Expiration Date Visits Re quested Visits Authorized [id number] Closed 08/17/2021 08/17/2022 1 1 * Radiology Services (Routine) - Closed Specialty Diagnoses / Procedures Referred By Contac t Referred To Contact Ultrasound Diagnoses 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) Lower extremity edema Cirrhosis of liver without ascites, unspecified hepatic cirrhosis type (HCC) Screening of cancer Procedures US ABDOMEN LIMITED Jackelyn Licona MD [address] [place] [address] [address] [place] [address] Referral ID Status Reason Start Date Expiration Date Visits Re quested Visits Authorized [id number] Closed 08/17/2021 08/17/2022 1 1 Reason for Visit * Reason Comments Follow-up Encounter Details Date Type Department Care Team (Late st Contact Info) Description 08/17/2021 11:30 AM CDT Office Visit [facility] - [address] [address] Jackelyn Licona MD [address] [place] [address] 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) (Primary Dx); Lower extremity edema; Cirrhosis of liver without ascites, unspecified hepatic cirrhosis type (HCC); Screening of cancer; Nonalcoholic steatohepatitis (RAYGOZA); Metabolic syndrome; Atrial fibrillation, unspecified type (HCC); MRSA infection Social History Tobacco Use Types Packs/Day Years [...] Sign Reading Time Taken Comments Blood Pressure 140/90 08/17/2021 11:23 AM CDT Pulse 82 08/17/2021 11:23 AM CDT Temperature 36.3 ??C (97.4 ??F) 08/17/2021 11:23 AM C DT Respiratory Rate 18 08/17/2021 11:23 AM CDT Oxygen Saturation 98% 08/17/2021 11:23 AM CDT Inhaled Oxygen Concentration - - Weight 121.1 kg (267 lb) 08/17/2021 11:23 AM CDT Height - - Body Mass Index 37.24 07/03/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 This is a 70 year old male with history of RAYGOZA and cirrhosis. -History of MRSA bacteremia 1 year ago c/b empyema and epidural abscess. History of DM2, CAD, DVT, and Afib. -Patient was diagnosed with cirrhosis in 2017 based on imaging. -In Feb 2019, patient was admitted with infection or right hip arthroplasty, s/p I&D 02/04 and 02/08 (hardware retained). DCed on prolonged course of vanc/rifampin. -In December 2019, had back spasm, which led to him falling. Sustained possible compression fracture. Wore a brace until early Feb 2020. Patient's liver disease is complicated by: -Ascites: No ascites. No prior LVP. Was previously on lasix, now on bumex 0.5mg bid. Also, on spironolactone 25mg daily. On diuretics for LE edema -Varices: No bleeding episodes. Last EGD 06/2020 without varices. -Encephalopathy: Had episode of confusion while hospital, likely related to medication (initiation of cymbalta). has noticed increased response time. Thought it was related to duloxetine. Resolved after stopping medication. No on lactulose or xifaxan. No symptoms since that time. Interval events: Doing well since his last visit. Was recently started on Neurontin for neuropathy, low-dose. He hasnot had any significant sedation with this medication. In addition, he was started on a new inhaler. No hospitalizations or ER visits since his last visit. Otherwise doing well. Alcohol: Does not drink alcohol. Tobacco: He did smoke from [id number]. Chronic medical problems: Afib on eliquis CAD, NSTEMI age 30 COPD HTN VALENTINA on BIPAP Review of Systems: Constitutional: negative for fevers, chill Eyes: negative for visual disturbance ENT: negative for hearing changes Respiratory: positive for shortness of breath Cardiovascular: Positive for intermittent chest pain, not associated with exertion Gastrointestinal: negative for nausea or vomiting Genitourinary:negative for dysuria Hematologic/lymphatic: positive for easy bruising, bleeding (on eliquis) Musculoskeletal: Joint pain in hands Neurological: negative for headaches Exam: Wt Readings from Last 3 Encounters: 08/17/21 121.1 kg (267 lb) 12/30/20 114.8 kg (253 lb) 08/26/20 114.9 kg (253 lb 6.4 oz) BP 140/90 Pulse 82 Temp 97.4 ??F (36.3 ??C) Resp 18 Wt 121.1 kg (267 lb) SpO2 98% BMI 37.24 kg/m2 General appearance: normal, alert, no distress, appears stated age Eyes: conjunctivae/corneas clear. Nose: Nares normal. Septum midline. Mucosa normal. Lungs: clear to auscultation bilaterally Heart: RRR, normal S1 and S2, no murmur Abdomen: soft, no masses palpable, non-tender, non-distended, bowel sounds normal Extremities: no ulcers, well perfused, trace BLE edema Skin: No rashes or lesions, no jaundice Neuro: Appropriate, oriented x 3, no asterixis Relevant Laboratories: Recent Labs Component Name 08/03/21 1025 01/09/21 1055 09/05/20 1325 08/20/20 0000 02/20/20 1323 08/20/19 1527 05/06/19 0231 05/05/19 0215 05/05/19 0215 05/04/19 0307 05/04/19 0307 02/03/19 0106 09/19/17 0243 09/18/17 0003 09/18/17 0003 09/17/17 0433 09/17/17 0433 09/07/17 0428 09/06/17 1621 09/06/17 1211 09/06/17 1157 09/04/17 0447 09/04/17 0447 09/03/17 0431 09/03/17 0431 07/29/17 1336 07/29/17 1130 BUN 41* 50* 27* 27* - - 22 - 20 - 19 - 26 - 25 - 19 - - - - - CREATININE 1.89* 2.07* 1.46* - - - 1.15 - 0.96 - 1.12 - 0.6 - 0.6 - 0.6 - - - 0.7 - 0.6 - 0.6 - - NA - - - - - - - - - - - - 138 - 140 - 139 - - - 143 - 141 - 140 - - POTASSIUM 4.7 4.4 4.2 3.7 - - 3.2* - 3.1* - 3.2* - 4.9* - 3.4* - 3.6 - - - 3.8 - 4.9* - 4.4 - - K - - - - - - - - - - - - - - - - - - 4.2 3.8 - - - - - - 3.3* CL - - - - - - - - - - - - 98 - 95* - 96* - - - 108* - 107 - 107 - - CO2 27 26 28 27 - - 26 - 25 - 27 - 34* - 35* - 32* - - - 20* - 27 - 27 - - CALCIUM 9.6 9.7 9.9 9.6 - - 9.2 - 9.1 - 9.1 - 9.1 - 9.0 - 8.8 - - - 8.5 - 8.4 - 8.6 - - PROT - - - - - - - - - - - - - - - - - - - - 6.2 - 5.3* - 5.4* - - ALB - - - 3.7 - - - - - - - - - - - - - - - - 1.8* - 1.5* - 1.5* - - TBILI - - - - - - - - - - - - - - - - - - - - 0.3 - 0.3 - 0.3 - - ALKPHOS 106 119 126 113 - - - - - - - - - - - - - - - - 204* - 190* - 212* - - ALT 28 23 24 19 - - - - - - - - - - - - - - - - 10 - - 12 - - AST 20 18 20 14 - - - - - - - - - - - - - - - - - - - ANIONGAP - - - - - - 11 - 10 - 8 - 11 - 13 - 15 - - - 19* - 12 - 10 - - BCR - - - - - - - - - - - - 43* - 42* - 32* - - - 30* - 18 - 22 - - OSMOLALITY - - - - - - - - - - - - 294 - 296 - 291 - - - 303* - 291 - 293 - - AGRATIO - - - - - - - - - - - - - - - - - - - - 0.4* - 0.4* - 0.4* - - EGFR 35* 31* 48* 54* - - >60 - >60 - >60 - >60 - >60 - >60 - - - >60 - >60 - >60 - - EGFRAFR 40* 36* 55* - - - >60 - >60 - >60 - - - - - - - - - - - - - - - - - = values in this interval not displayed. Recent Labs Component Name 08/03/21 1025 01/09/21 1055 09/05/20 1325 WBC 9.3 8.3 10.3 HGB 14.9 15.1 15.3 HCT 45.1 47.6 47.4 PLTCOUNT 91* 98* 113* Recent Labs Component Name 08/03/21 1025 01/09/21 1055 09/05/20 1325 INR 1.1 1.0 1.1 MELD-Na score: 14 at 08/03/2021 10:25 AM MELD score: 14 at 08/03/2021 10:25 AM Calculated from: Serum Creatinine: 1.89 mg/dL at 08/03/2021 10:25 AM Serum Sodium: 139 mmol/L (Using max of 137 mmol/L) at 08/03/2021 10:25 AM Total Bilirubin: 0.6 mg/dL (Using min of 1 mg/dL) at 08/03/2021 10:25 AM INR(ratio): 1.1 at 08/03/2021 10:25 AM Age: 70 years Chronic liver disease workup: Component Latest [...] % 16 - 50 % 5 (L) [id number] 90 - 200 mg/dL 223 (H) Phenotype (PI) Comment Hepatitis C Antibody Non-reactive Non-reactive HBc Antibody Total Non-reactive Non-reactive Hepatitis B Virus Surface Antigen Non-reactive Non-reactive Last endoscopies: EGD: -09/15/17: PEG placement. No esophageal varices. -07/03/20: No esophageal or gastric varices seen. Colonoscopy: -Patient reports 2016 without polyps Last imaging: -US abd ltd 11/06/18: Hepatic cirrhosis without discrete hepatic lesion or intrahepatic biliary dilation. Patent hepatic vasculature. -US abd ltd 05/16/2019: Hepatic cirrhosis. No discrete hepatic lesion or biliary dilation. -US abd 03/19/2020: Coarse liver echotexture without discrete hepatic lesion. -US abd ltd 09/19/20: Cirrhotic liver morphology without discrete hepatic lesion. -US abd ltd 03/19/21: Hepatic steatosis without focal liver mass. Liver biopsy/Fibroscan: -Fibroscan 08/26/20: techinically difficult study; unable to get valid reading Assessment: 1. RAYGOZA cirrhosis, MELD 14, compensated -Transplant is not a consideration at this time due to low MELD, advanced age, and multiple comorbidities. 2. Metabolic syndrome 3. A fib on eliquis 4. 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 MELD prior to next visit 2. Repeat imaging for HCC now and at time of next visit. 3. Repeat EGD in 1 to 2 years. 4. Counseled regarding low sodium diet. 5. I have also recommended a high protein diet. 6. We will hold on treatment of hepatic encephalopathy as patient's prior symptoms of altered mental status are likely related to initiation of Cymbalta. He has not had any further symptoms since discontinuation of medication. I have asked him to return for a follow up visit in 6 months with MELD labs and AFP prior to that visit. Jackelyn Licona MD [employer] Division of Gastroenterology and Hepatology No orders of the defined types were placed in this encounter. Current Outpatient Medications Medication Sig ??? acetaminophen (TYLENOL) 325 MG tablet Take 650 mg by mouth every 4 hours as needed ??? albuterol (PROVENTIL;VENTOLIN) (5 MG/ML) 0.5% nebulizer solution 2.5 mg. (Patient taking differently: Inhale 2.5 mg by mouth 4 times daily ) ??? apixaban (ELIQUIS) 5 MG tablet Take 5 mg by mouth 2 times daily ??? aspirin EC (ECOTRIN) 81 MG tablet Take 81 mg by mouth once daily ??? baclofen (LIORESAL) 10 MG tablet Take 10 mg by mouth every evening May cause drowsiness. ??? benzonatate (TESSALON) 200 MG capsule Take 1 capsule by mouth 3 times daily as needed for Cough ??? BREZTRI AEROSPHERE 160-9-4.8 MCG/ACT AERO INHALE 2 PUFFS BY MOUTH EVERY MORNING AND EVERY EVENING ??? bumetanide (BUMEX) 0.5 MG tablet Take 0.5 mg by mouth 2 times daily ??? Cetirizine HCl (ZYRTEC PO) Take 10 mg by mouth daily with breakfast ??? cyanocobalamin (VITAMIN B-12) 500 MCG tablet Take 500 mcg by mouth once daily ??? diphenhydrAMINE (BENADRYL) 25 MG capsule Take 25 mg by mouth every 6 hours as needed for Itching ??? doxycycline hyclate (VIBRAMYCIN) 100 MG capsule Take 100 mg by mouth once daily ??? ferrous sulfate 325 (65 FE) MG tablet Take 325 mg by mouth 2 times daily with morning and evening meal ??? gabapentin (NEURONTIN) 100 MG capsule Take 100 mg by mouth at bedtime ??? metoprolol succinate XL 24hr (TOPROL XL) 50 MG tablet Take 100 mg by mouth once daily ??? nystatin (NYSTOP) 751250 UNIT/GM powder Apply to affected area 2 times daily as needed Apply togroin area twice a day as needed. ??? omeprazole (PRILOSEC) 40 MG capsule Take 40 mg by mouth daily before breakfast ??? potassium chloride ER (KLOR-CON M) 20 MEQ tablet Take 20 mEq by mouth once daily ??? roflumilast (DALIRESP) 500 MCG tablet Take 500 mcg by mouth once daily ??? Skin Protectants, Misc. (BASIS FACIAL MOISTURIZER) CREA 1 Each by Apply externally route as needed Reasons: Dryness Confined to a Specific area of the Body, eyes ??? Spacer/Aero-Holding Chambers (OPTICHAMBER CHAZ) MISC as directed ??? spironolactone (ALDACTONE) 50 MG tablet Take 1 (one) tablet by mouth once daily ??? tamsulosin (FLOMAX) 0.4 MG capsule Take 0.4 mg by mouth at bedtime ??? tobramycin (TOBREX) 0.3 % ophthalmic solution PLACE 2 DROPS IN EACH EYE EVERY 4 HOURS ??? triamcinolone acetonide (KENALOG) 0.1 % cream Apply to affected area 3 times daily Apply to rash daily as needed. ??? vitamin D, ergocalciferol, (DRISDOL) 13499 UNITS capsule Take 50,000 Units by mouth every 7 days No current facility-administered medications for this visit. 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 Visit [facility] - GI [address] [place] [address] Twin Miller MD [facility] [place] [address] 09/19/2024 2:00 PM CDT Office Visit [facility] - Orthopedic Surgery [address] [place] [id number] Larry Alexander MD [address] [facility] [address] [place] [address] Scheduled Orders Name Type Priority Associated Diagnoses Orde r Schedule PT-INR Lab STAT 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) Lower extremity edema Cirrhosis of liver without ascites, unspecified hepatic cirrhosis type (HCC) Screening of cancer Expected: 08/17/2021, Expires: 09/17/2022 documented as of this encounter Goals Goal [...] DATE/TIME OF EXAM: ??02/23/2022 10:41 AM, LOCATION ??[facility] INDICATION: K75.81: Liver cirrhosis secondary to [...] DATE/TIME OF EXAM: 02/23/2022 10:41 AM, LOCATION [facility] INDICATION: K75.81: Liver cirrhosis secondary to [...] 1:31 AM Jackelyn Licona MD US ORDERABLES * US ABDOMEN LIMITED (08/25/2021 1:32 PM CDT) Anatomical Region Laterality Modality Abdomen Ultrasound 08/25/2021 1:21 PM CDT Impressions 08/25/2021 1:34 PM CDT IMPRESSION: 1. Hepatic steatosis without focal liver mass. 2. Cholelithiasis without evidence of acute cholecystitis. Dictated by Julienne Son MD (residential construction instructor). I, Dr. HUBER CHAMBERS have personally reviewed and interpreted this examination/study. This report was electronically signed by HUBER CHAMBERS ??on 08/25/2021 1:34 PM . Narrative [...] length. No ascites is present. Procedure Note Huber Chambers MD - 08/25/2021 EXAM: Limited abdominal [...] acute cholecystitis. Dictated by Julienne Son MD (residential construction instructor). I, Dr. HUBER CHAMBERS have personally reviewed and interpreted this examination/study. This report was electronically signed by HUBER CHAMBERS on 08/25/2021 1:34 PM . Jackelyn Licona MD ORDERABLES documented in this encounter Visit Diagnoses Diagnosis 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)- Primary Other chronic nonalcoholic liver disease Lower extremity edema Edema Cirrhosis of liver without ascites, unspecified hepatic cirrhosis type (HCC) Screening of cancer Screening for unspecified malignant neoplasm Nonalcoholic steatohepatitis (RAYGOZA) Other chronic nonalcoholic liver disease Metabolic syndrome Dysmetabolic Syndrome X Atrial fibrillation, unspecified type (HCC) MRSA infection Methicillin resistant Staphylococcus aureus in conditions classified elsewhere and of unspecified site 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) Other chronic nonalcoholic liver disease Lower extremity edema Edema Cirrhosis of liver without ascites, unspecified hepatic cirrhosis type (HCC) Screening of cancer Screening for unspecified malignant neoplasm 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) Other [...] documented as of this encounter Care Teams Order Builder Relationship Specialty Start Date End Date Briana Medeiros MD [address] [place] [id number] PCP - General 02/15/18 02/22/22 documented as of this encounter
--- OUTSIDE RECORDS SUMMARY | 2024-05-24 23:34 | XMS_ITS | Encounter Summary ---
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 [place] [address] [place] [address] Referral ID Status Reason Start Date Expiration Date Visits Re quested Visits Authorized [id number] Closed 02/23/2022 02/23/2023 1 1 Reason for Visit * Reason Comments Cirrhosis Encounter Details Date Type Department Care Team (Late st Contact Info) Description 02/23/2022 12:30 PM CDT Office Visit [facility] [facility], [facility] [place] [address] Kimberly Lacy PA-C [address] [place] [address] [address] [place] [address] 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) (Primary Dx) Social History Tobacco Use [...] Sign Reading Time Taken Comments Blood Pressure 130/66 02/23/2022 12:30 PM CDT Pulse 70 02/23/2022 12:30 PM CDT Temperature 35.9 ??C (96.7 ??F) 02/23/2022 12:30 PM C DT Respiratory Rate - - Oxygen Saturation 100% 02/23/2022 12:30 PM CDT Inhaled Oxygen Concentration - - Weight 120.2 kg (265 lb) 02/23/2022 12:30 PM CDT Height 180.3 cm (5' 11 ) 02/23/2022 12:30 PM CDT Body Mass Index 36.96 02/23/2022 12:30 PM CDT documented in this encounter Functional [...] No 04/29/2019 documented as of this encounter Patient Instructions * Patient Instructions* Kimberly Lacy PA-C - 02/23/2022 1:21 PM CDT IMPORTANT INSTRUCTIONS 02/23/2022 The following information and instructions are from your visit today: Medication Changes: No changes Laboratory Studies: Pt is to have labs done before his next office visit- please print orders Health Maintenance Goals: Pt is to have an ultrasound in August the same day as his next office visit Pt is to increase activity to at least 120 min per week inclusive of strength building Pt is to make sure he is adhering to a high protein diet Pt is to see dermatology for rashes Thank you for entrusting your healthcare to the physicians and other specialists at the [facility] clinic today. Following your visit, you may receive a survey via email or U.S. Mail. We encourage you to respond to this confidential survey about your care. Your feedback helps us to provide quality service at every visit. Thank you for your help in making our practice meet higher expectations. Contact information: To reach the clinic please call (8 am to noon, 1 to 4:30 pm weekdays). Press 1 to make schedule or cancel an appointment Press 2 for pharmacy refills Press 3 to speak with a nurse regarding a change in your condition. Many times your nurse may be busy seeing patients in clinic. In order to meet your needs timely we have implemented a nurse triage line to take your calls. We are closed from 12-1 for lunch After hours please call (hospital main number), ask the photolith operator to call the gastroenterology fellow teacher adult education. Emergency: call 911 or go to your closest emergency room. We encourage you to use [employer] to send and receive messages and review your test results. Let us know if you need information on signing up for [employer] More information about us and our services can be found on our websites at [email or web address] and [email or web address] Information about the [facility] of the [facility] [place], a bos-zom-urpwml foundation supporting liver disease research by your doctors and researchers at [facility], can be found at: [email or web address].org documented in this encounter Progress Notes * Kimberly Lacy PA-C - 02/23/2022 12:55 PM CDT [facility] Progress Note Subjective: Hx obtained from: patient and External records reviewed: no Last Hepatology Visit: 08/2021 Chief Complaint: is a 71 year old male with a history of RAYGOZA associated cirrhosis here in the office for follow up. Pt feels okay. No specific complaints Interval Hx: No interval events since his last office visit the pt has increased his activity a little. He is going to the [facility] once a week. Historically he would have to take 2 breaks when he walked into the facility, he now only takes one break. Past Medical History: Patient denies any new PMH or FH Patient Active Problem List: Acute embolism and thrombosis of deep vein of lower extremity Bacteremia Vitamin D deficiency Local infection of skin and subcutaneous tissue Unspecified staphylococcus as the cause of diseases classified elsewhere Chronic atrial fibrillation Other specified anemias Venous insufficiency (chronic) (peripheral) Other specified dermatitis Impetiginization of other dermatoses Localized edema Hypoxemia Pleural effusion on left Methicillin resistant Staphylococcus aureus infection Extradural and subdural abscess, unspecified Acute respiratory failure with hypoxia Discitis of lumbar region Acute kidney failure Sepsis Severe sepsis without septic shock (CODE) 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 Respiratory: Positive for shortness of breath. With COPD and humidity Cardiovascular: Negative for chest pain and leg swelling. Gastrointestinal: Negative for abdominal pain, blood in stool, constipation, diarrhea, melena, nausea and vomiting. Skin: Positive for itching and rash. All over- tx with triamcinolone cream Endo/Heme/Allergies: Bruises/bleeds easily. Psychiatric/Behavioral: Negative for substance abuse. Social History Nicotine Products: none EtOH: none Marijuana: none Illegal drugs: none Health Maintenance Screening Last visit with PCP- 12/2021 Colon CA screening/ surveillance- last done 2016 (no polyps) Esophageal Varices screening/ surveillance- last done 07/03/20- due HCC screening/ surveillance- last done 02/23/22- due 08/2022 TwinRx- not done Influenza vaccination- not yet done COVID vaccination- series of 3 completed 03/15/21 Objective: Vitals: 02/23/22 1230 BP: 130/66 Pulse: 70 Temp: 96.7 ??F (35.9 ??C) SpO2: 100% Weight: 120.2 kg (265 lb) Height: 1.803 m (5' 11 ) Estimated body mass index is 36.96 kg/m?? as calculated from the following: Height as of this encounter: 1.803 m (5' 11 ). Weight as of this encounter: 120.2 kg (265 lb). Wt Readings from Last 3 Encounters: 02/23/22 120.2 kg (265 lb) 08/17/21 121.1 kg (267 lb) 12/30/20 114.8 kg (253 lb) Medications Current Outpatient Medications Medication Sig ??? acetaminophen [...] daily with morning and evening meal ??? folic acid (Folvite) 1 MG tablet Take 1 tablet by mouth once daily ??? gabapentin (NEURONTIN) 100 MG capsule Take 200 mg by mouth at bedtime ??? magnesium oxide (MAG-OX) 400 MG tablet Take 400 mg by mouth 2 times daily ??? metoprolol succinate XL 24hr (TOPROL XL) 50 MG tablet Take 100 mg by mouth once daily ??? omeprazole (PRILOSEC) 40 MG capsule Take 40 mg by mouth daily before breakfast ??? potassium chloride ER (KLOR-CON M) 20 MEQ tablet Take 20 mEq by mouth once daily ??? Pyridoxine HCl [...] 0.4 mg by mouth at bedtime ??? triamcinolone acetonide (KENALOG) 0.1 % cream Apply to affected area 3 times daily Apply to rash daily as needed. ??? vitamin D, ergocalciferol, (DRISDOL) 38138 UNITS capsule Take 50,000 Units by mouth every 7 days No current facility-administered medications for this visit. I have reviewed the current medications with the patient. Physical Examination: General appearance: Well nourished well developed obese 71 year old in no acute distress sitting eloina wheelchair. Eyes: sclerae were anicteric bilaterally Skin: without evidence of jaundice. +erythemic and raised rash on his arms and dorsal aspect of hishands bilaterally. Lungs: clear to ascultation bilaterally, without wheezes, rales, rhonchi, or dullness Heart: regular rate and rhythm without murmur, clicks, or thrills Abdomen: Bowel sounds normoactive in all four quadrants, soft, non-tender, non- distented, no ascites, no masses, or hepatosplenomegaly Extremities: without clubbing, cyanosis, or edema Mental status: Alert and oriented to person, place, time and situation with a normal affect. No asterixis Labs/data: Recent Labs Component Name 02/09/22 0921 08/03/21 1025 01/09/21 1055 09/05/20 1325 SODIUM 142 139 137 140 POTASSIUM 4.4 4.7 4.4 4.2 CHLORIDE 103 102 102 103 CO2 27 27 26 28 BUN 34* 41* 50* 27* CREATININE 1.97* 1.89* 2.07* 1.46* GLUCOSE 129* 124* 144* 109* CALCIUM 9.6 9.6 9.7 9.9 ALT 24 28 23 24 ALKPHOS 88 106 119 126 AST 23 20 18 20 TBIL 0.7 0.6 0.9 0.8 TPROT 6.7 6.8 6.9 7.1 EGFR - 35* 31* 48* EGFRAFR - 40* 36* 55* ALBUMIN 4.0 4.1 3.9 3.9 Recent Labs Component Name 02/09/22 0921 08/03/21 1025 01/09/21 1055 WBC 8.3 9.3 8.3 HGB 13.8 14.9 15.1 HCT 42.0 45.1 47.6 PLTCOUNT 111* 91* 98* Recent Labs Component Name 02/09/22 0915 08/03/21 1025 01/09/21 1055 INR 1.1 1.1 1.0 MELD-Na score: 14 at 02/09/2022 9:21 AM MELD score: 14 at 02/09/2022 9:21 AM Calculated from: Serum Creatinine: 1.97 mg/dL at 02/09/2022 9:21 AM Serum Sodium: 142 mmol/L (Using max of 137 mmol/L) at 02/09/2022 9:21 AM Total Bilirubin: 0.7 mg/dL (Using min of 1 mg/dL) at 02/09/2022 9:21 AM INR(ratio): 1.1 at 02/09/2022 9:15 AM Age: 71 years Ultrasound 02/23/22 (not discussed with patient) IMPRESSION: Course echotexture with nodular outline indicating cirrhosis. No suspicious hepatic observations. Labs and test results were reviewed with the patient. 41 minutes was spent with the patient >50% of which was spent in counseling and coordination of care. Impression/ Plan: 1. Cirrhosis- without evidence of decompensation presently and MELD of 14. He is not a transplant candidate due to age and other medical illnesses. He is up to date on screening for HCC and esophageal varices. He will be due for a repeat ultrasound the same day as his next office visit with Dr. Licona in 6 months. 2. RAYGOZA- cause of his liver dz. Pt advised to maintain optimal control of his metabolic syndrome. In order to prevent progression it will be important to lose wt with diet and exercise. Presently, the pt has good hepatic function. 3. Obesity- wt loss with diet and exercise as noted above. Goal for exercise is at least 120 min per week inclusive of strength building exercises. Pt lost 2 lbs since his last office visit. The pt goal is approximately 10% of baseline wt which is 26 lbs. 4. Health maintenance- pt is advised to adhere to a high protein and low sodium diet. He is advisedto have a flu vaccination this fall. Pt is advised to seek care from a agronomy manager for his rashesthat are uncontrolled with the OTC treatments. Return to clinic: An appointment was scheduled for him to see us in followup in [address] Licona. Kimberly Lacy PA-C Physician Delivery Person in Internal Medicine Olayinka Parks MD Professor of Internal Medicine Orders Placed This Encounter ??? US ABDOMEN LIMITED ??? COMPREHENSIVE METABOLIC PANEL ??? CBC WITH DIFFERENTIAL ??? PT-INR PCP K Ney Medeiros MD [address] [place] [address] Referring Physician Provider Unknown No address on file documented in this encounter Plan of Treatment Upcoming Encounters Date Type Department Care Team (Late st Contact Info) Description 07/09/2024 12:30 PM KITCHEN HELPER [place] [facility] [place] [address] [place] [address], [place] [phone] Twin Miller MD [address] [place] [address] [place] [address] 09/19/2024 2:00 PM CDT Office Visit [facility] - Orthopedic [facility] [place] [phone] Larry Alexander MD [address] [address] documented as of this encounter Goals Goal [...] [place] (resident). > Dictated by River Hensley (Classroom Instructor) 08/23/2022 11:56 AM BLAISE Stringer MD have personally reviewed and interpreted this examination/study. > Interpreting Provider: BLAISE BOWENS MD on 08/23/2022 11:58 AM Narrative 08/23/2022 11:58 AM CDT PROCEDURE: ??US ABDOMEN LIMITED, DATE/TIME OF EXAM: ??08/23/2022 10:51 AM, LOCATION ??[facility] INDICATION: K75.81: Liver cirrhosis secondary to [...] DATE/TIME OF EXAM: 08/23/2022 10:51 AM, LOCATION [facility] INDICATION: K75.81: Liver cirrhosis secondary to [...] [place] (resident). > Dictated by River H[place] (Classroom Instructor) 08/23/2022 11:56 AM IBLAISE MD have personally reviewed and interpreted this examination/study. 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
--- OUTSIDE RECORDS SUMMARY | 2024-05-24 23:34 | XMS_ITS | Encounter Summary ---
Author Organization [facility] Address [address] [facility] [address] Care Team Providers Care Fuel Manager Name Role Phone Briana Medeiros MD Primary Care Provider [phone] Encounter Details Date Type Department Care Team (Latest Contact Info) Description 08/25/2021 Travel Social History Tobacco Use Types Packs/Day [...] st Contact Info) Description 07/09/2024 12:30 PM NUCLEAR PLANT EQUIPMENT OPERATOR Office Visit [facility] [address] [facility], [place] [address] Twin Miller MD [address] [facility] 2L [facility] [place] [address] 09/19/2024 2:00 PM CDT Office Visit [facility] - Orthopedic Surgery [address] [facility] [place] [phone] Larry Alexander MD [address] [facility] [address] [place] [address] documented as of this encounter Goals Goal [...] documented as of this encounter Care Teams Fuel Manager Relationship Specialty Start Date End Date Briana Medeiros MD [address] [place] [address] PCP - General 02/15/18 02/22/22 documented as of this encounter
--- OUTSIDE RECORDS SUMMARY | 2024-05-24 23:34 | XMS_ITS | Encounter Summary ---
Author Organization [facility] Address [address] [place] [address] Care Team Providers Care Financial Brokers Name Role Phone Unknown, Provider Primary Care Provider Unavaila ble Encounter Details Date Type Department Care Team (Late st Contact Info) Description 11/02/2022 Orders Only [facility] [address] [facility], [facility] [place] [phone] Debi Schmitt RN Social History Tobacco Use Types Packs/Day [...] st Contact Info) Description 07/09/2024 12:30 PM BUNCH BREAKER Office Visit [facility] [address] [facility], [place] [address] Twin Miller MD [address] [facility] 2L [place] [address] 09/19/2024 2:00 PM CDT Office Visit [facility] - Orthopedic Surgery [address] [facility] [place] [address] Lrary Alexander MD [address] [facility] [address] [place] [address] documented as of this encounter Goals Goal [...] documented as of this encounter Care Teams Financial Brokers Relationship Specialty Start Date End Date Unknown, Provider PCP - General 08/23/22 10/12/23 documented as of this encounter
--- OUTSIDE RECORDS SUMMARY | 2024-05-24 23:34 | XMS_ITS | Encounter Summary ---
Author Organization [facility] Address [address] [facility] [place] [address] Care Team Providers Care Rare/Endangered Species Specialist Name Role Phone Unknown, Provider Primary Care Provider Unavaila ble Reason for Visit * Reason Onset Date Comments Post Op Call 10/08/2022 Procedure follow up Encounter Details Date Type Department Care Team (Late st Contact Info) Description 10/08/2022 Patient Outreach [facility] [address] [place] [phone] Cathy Atwood RN Post Op Call (Procedure follow up) Social History Tobacco Use Types Packs/Day Years [...] encounter Miscellaneous Notes * Telephone Encounter - Cathy Atwood RN - 10/08/2022 3:22 PM CDT Patient states I'm doing just fine today after his procedure yesterday. Patient also states you have a great staff when asked about his care. No concerns at this time. Cathy Atwood RN documented in this encounter Plan of Treatment Upcoming Encounters Date Type Department Care Team (Late st Contact Info) Description 07/09/2024 12:30 PM QUALITY ASSURANCE PROJECT MANAGER Office Visit [facility] [address] [place] [address], [place] [address] Twin Miller MD [address] [place] [address] [place] [address] 09/19/2024 2:00 PM CDT Office Visit [facility] - Orthopedic Surgery [address] [place] [phone] Larry Alexander MD [address] [facility] [address] [place] [address] documented as of this encounter Goals Goal [...] documented as of this encounter Care Teams Rare/Endangered Species Specialist Relationship Specialty Start Date End Date Unknown, Provider PCP - General 08/23/22 10/12/23 documented as of this encounter
--- OUTSIDE RECORDS SUMMARY | 2024-05-24 23:34 | XMS_ITS | Encounter Summary ---
Author Organization [facility] Address [address] [place] [address] Care Team Providers Care Precision Mechanical Instrument Maker Name Role Phone Unknown, Provider Primary Care Provider Unavaila ble Reason for Visit * Reason Comments Refill Request Encounter Details Date Type Department Care Team (Late st Contact Info) Description 10/31/2022 Refill [facility] - [address] [phone] Jackelyn Licona MD [address] [place] [phone] Refill Request Social History Tobacco Use Types [...] st Contact Info) Description 07/09/2024 12:30 PM HOOKMAN Office Visit [facility] - GI [address] [facility], [place] [address] Twin Miller MD [facility] DIV [place] [address] 09/19/2024 2:00 PM CDT Office Visit [facility] - Orthopedic Surgery [address] [facility] [place] [address] Larry Alexander MD [address] [facility] [address] [place] [address] documented as of this encounter Goals Goal [...] documented as of this encounter Care Teams Precision Mechanical Instrument Maker Relationship Specialty Start Date End Date Unknown, Provider PCP - General 08/23/22 10/12/23 documented as of this encounter
--- OUTSIDE RECORDS SUMMARY | 2024-05-24 23:34 | XMS_ITS | Encounter Summary ---
Author Organization [facility] Address [address] [facility] [place] [address] Care Team Providers Care Managed Care Nurse Name Role Phone Briana Medeiros MD Primary Care Provider [phone] Encounter Details Date Type Department Care Team (Latest Contact Info) Description 10/08/2021 Travel Social History Tobacco Use Types Packs/Day [...] st Contact Info) Description 07/09/2024 12:30 PM EVP SALES Office Visit [facility] [address] [facility], [place] [address] Twin Miller MD [facility] [address] [facility] [place] [address] 09/19/2024 2:00 PM CDT Office Visit [facility] - Orthopedic Surgery [address] [place] [phone] Larry Alexander MD [address] [facility] [address] [place] [address] documented as of this encounter Goals Goal [...] documented as of this encounter Care Teams Managed Care Nurse Relationship Specialty Start Date End Date Briana Medeiros MD [address] [place] [address] PCP - General 02/15/18 02/22/22 documented as of this encounter
--- OUTSIDE RECORDS SUMMARY | 2024-05-24 23:35 | XMS_ITS | Encounter Summary ---
Author Organization [facility] Address [address] [facility] [place] [address] Care Team Providers Care Flotation Tender Name Role Phone Briana Medeiros MD Primary Care Provider [phone] Encounter Details Date Type Department Care Team (Late st Contact Info) Description 07/18/2020 Orders Only [facility] - Orthopedics [address] [facility], [facility] [place] [phone] Larry Alexander MD [address] [facility] [address] [place] [address] Arthralgia of hip, unspecified laterality Social History Tobacco Use Types Packs/Day Years [...] st Contact Info) Description 07/09/2024 12:30 PM CHRISTMAS TREE CONTRACTOR Office Visit [facility] - GI [address] [facility], [place] [address] Twin Miller MD [facility]5 [facility] 2L DIV [place] [address] 09/19/2024 2:00 PM CDT Office Visit [facility] - Orthopedic Surgery [address] [place] [phone] Larry Alexander MD [address] [facility] 280 [place] [address] documented as of this encounter Goals Goal [...] documented as of this encounter Results * XR PELVIS 1 OR 2VW (08/05/2020 9:55 AM CHRISTMAS TREE CONTRACTOR) Anatomical Region Laterality Modality Pelvis Radiographic Shama ging 08/05/2020 10:0 3 AM CHRISTMAS TREE CONTRACTOR Impressions 08/05/2020 10:07 AM CHRISTMAS TREE CONTRACTOR IMPRESSION: 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 This report was electronically signed by SILAS NGUYỄN MD ??on 08/05/2020 10:07 AM . Narrative 08/05/2020 10:07 AM CHRISTMAS TREE CONTRACTOR Exam: 1. XR PELVIS 1 view 2. [...] RIGHT 2VW OR MORE (08/05/2020 9:55 AM CHRISTMAS TREE CONTRACTOR) Anatomical Region Laterality Modality Pelvis, Lower Extremity Radiogra [facility] 08/05/2020 10:0 3 AM CHRISTMAS TREE CONTRACTOR Impressions 08/05/2020 10:07 AM CHRISTMAS TREE CONTRACTOR IMPRESSION: 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 This report was electronically signed by SILAS NGUYỄN MD ??on 08/05/2020 10:07 AM . Narrative 08/05/2020 10:07 AM CHRISTMAS TREE CONTRACTOR Exam: 1. XR PELVIS 1 view 2. [...] . 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
--- OUTSIDE RECORDS SUMMARY | 2024-05-24 23:35 | XMS_ITS | Encounter Summary ---
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) Social [...] st Contact Info) Description 07/09/2024 12:30 PM TYPESETTING MACHINE TENDER Office Visit [facility] - GI [address] [facility], [place] [address] Twin Miller MD [address] OF [place] [address] 09/19/2024 2:00 PM CDT Office Visit [facility] - Orthopedic Surgery [address] [facility] [place] [phone] Larry Alexander MD 10[address] [facility] 280 [place] [address] documented as of this encounter Goals Goal [...] (HCC)- Primary Other chronic nonalcoholic liver disease documented in this encounter Additional Health Concerns Infection Onset Date Last Indicated Resolved Time 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
--- OUTSIDE RECORDS SUMMARY | 2024-05-24 23:35 | XMS_ITS | Encounter Summary ---
Author Organization [facility] Address [address] [facility] [place] [address] Care Team Providers Care Horse Buyer Name Role Phone Briana Medeiros MD Primary Care Provider [phone] Encounter Details Date Type Department Care Team (Late st Contact Info) Description 08/26/2020 2:00 PM CDT Procedure visit [facility] - [address] [phone] Shireen Celestin MD [address] [place] [phone] 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) ; Metabolic syndrome Social History Tobacco Use Types Packs/Day Years [...] as of this encounter Progress Notes * Guadalupe Sutton, RN - 08/26/2020 1:43 PM CDT Diagnosis: Cirrhosis RN verified patient has no implanted devices and NPO for prior 3 hours. Procedure explained and consent signed. Date of Exam: 08/26/2020 Liver Stiffness: (LSM, kPa) median: Unable to get valid readings IQR (interquartile range): IQR/Median% (ideally < 30%): CAP (controlled attenuation parameter): Technical Difficulty: Patient in wheelchair. After 107 attempts, unable to get valid readings Ordering Provider: Jackelyn Licona MD Phone Fax Fibroscan interpretation: I have personally reviewed the Fibroscan report and associated tracings. The calculated Liver Stiffness Measurement (LSM, kPa) indicates that: The probability of advanced liver fibrosis is: not assessable using Fibroscan due to variability oftracings. The loss of ultrasound signal, (controlled attenuation [...] based on the following published data: Gwyn PJ, Gricelda M, Julianna M, et al. Accuracy of FibroScan controlled attenuation parameter and liver stiffness measurement in assessing steatosis and fibrosis in patients with nonalcoholic fatty liver disease. Gastroenterology 2019;156:1630-5995. Rico MS, Lina R, Van Jasen ML, et al. Vibration-controlled transient elastography to assess fibrosis and steatosis in patients with nonalcoholic fatty liver disease. Clin Gastroenterol Hepatol 2019;17:156-163. Note: 1. Fibroscan cannot reliably identify earlier stages of fibrosis (ie distinguish F0 from F1 and F2)and thus a histologic stage cannot be predicted from the Fibroscan reading. 2. Assessing the likelihood of advanced fibrosis in patients with indeterminate liver stiffness measurement (LSM) by Fibroscan (e.g., 8-15 kPa) can be improved by also calculating the FIB4 score (Teenauke et al. Hepatology Communications 2019;3:1577-8785) or NAFLD Fibrosis score (Lutz et al. Clinical Gastroenterology and Hepatology 2019;17:8538-2379. from routine clinical data. 3. Liver stiffness [...] change as additional supporting data becomes available. [email or web address] documented in this encounter Procedure Notes * Kendrick Duran MD - 08/31/2020 9:47 PM CDTAssociated Order(s): PROC FIBROSCAN Procedure(s): [place] LIVER ELASTOGRAPHY Pre-Procedure Diagnose(s): 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); Metabolic syndrome Diagnosis: Cirrhosis RN verified patient has no implanted devices and NPO for prior 3 hours. Procedure explained and consent signed. Date of Exam: 08/26/2020 Liver Stiffness: (LSM, kPa) median: Unable to get valid readings IQR (interquartile range): IQR/Median% (ideally < 30%): CAP (controlled attenuation parameter): Technical Difficulty: Patient in wheelchair. After 107 attempts, unable to get valid readings Ordering Provider: Jackelyn Licona MD Phone Fax Fibroscan interpretation: I have personally reviewed the Fibroscan report and associated tracings. The calculated Liver Stiffness Measurement (LSM, kPa) indicates that: The probability of advanced liver fibrosis is: not assessable using Fibroscan due to variability oftracings. The loss of ultrasound signal, (controlled attenuation [...] based on the following published data: Gwyn PJ, Gricelda M, Julianna M, et al. Accuracy of FibroScan controlled attenuation parameter and liver stiffness measurement in assessing steatosis and fibrosis in patients with nonalcoholic fatty liver disease. Gastroenterology 2019;156:0499-0878. Rico MS, Lina R, Van Jasen ML, et al. Vibration-controlled transient elastography to assess fibrosis and steatosis in patients with nonalcoholic fatty liver disease. Clin Gastroenterol Hepatol 2019;17:156-163. Note: 1. Fibroscan cannot reliably identify earlier stages of fibrosis (ie distinguish F0 from F1 and F2)and thus a histologic stage cannot be predicted from the Fibroscan reading. 2. Assessing the likelihood of advanced fibrosis in patients with indeterminate liver stiffness measurement (LSM) by Fibroscan (e.g., 8-15 kPa) can be improved by also calculating the FIB4 score (Davyduke et al. Hepatology Communications 2019;3:7928-5610) or NAFLD Fibrosis score (Lutz et al. Clinical Gastroenterology and Hepatology 2019;17:3077-5243. from routine clinical data. 3. Liver stiffness [...] change as additional supporting data becomes available. 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 Office Visit [facility] - GI [address] [place] [address], [place] [phone] Twin Miller MD [address] [place] [address] [place] [address] 09/19/2024 2:00 PM CDT Office Visit [facility] - Orthopedic Surgery [address] [facility] [place] [phone] Larry Alexander MD [address] [facility] 280 [place] [address] documented as of this encounter Goals Goal [...] Procedure Name Priority Date/Time Associated Diagnosis Comments [place] LIVER ELASTOGRAPHY Routine 08/31/2020 9:47 PM CDT 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) Metabolic syndrome documented in this encounter Results * [place] LIVER ELASTOGRAPHY (08/31/2020 9:47 PM CDT) Narrative [...] based on the following published data: Gwyn PJ, Gricelda M, Julianna M, et al. Accuracy of FibroScan controlled attenuation parameter and liver stiffness measurement in assessing steatosis and fibrosis in patients with nonalcoholic fatty liver disease. Gastroenterology 2019;156:7683-7120. Rico MS, Lina R, Van Jasen ML, [...] improved by also calculating the FIB4 score (Esvine et al. Hepatology Communications 2019;3:2871-0669) or NAFLD Fibrosis score (Lutz et al. Clinical Gastroenterology and Hepatology 2019;17:3847-1225. from routine clinical data. 3. Liver stiffness [...] change as additional supporting data becomes available. 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
--- OUTSIDE RECORDS SUMMARY | 2024-05-24 23:35 | XMS_ITS | Encounter Summary ---
Author Organization [facility] Address [address] [facility] [place] [address] Care Team Providers Care Stunt Person Name Role Phone Briana Medeiros MD Primary Care Provider [phone] Encounter Details Date Type Department Care Team (Latest Contact Info) Description 09/18/2020 Travel Social History Tobacco Use Types Packs/Day [...] or suspected to have Coronavirus / COVID-19? 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 Office Visit [facility] - GI [address] [facility], [place] [address] Twin Miller MD [address] [facility] 2L [facility] [place] [address] 09/19/2024 2:00 PM CDT Office Visit [facility] - Orthopedic Surgery [address] [facility] [place] [phone] Larry Alexander MD [address] [facility] [address] [place] [address] documented as of this encounter Goals Goal [...] documented as of this encounter Care Teams Stunt Person Relationship Specialty Start Date End Date Briana Medeiros MD [address] [place] [id number] PCP - General 02/15/18 02/22/22 documented as of this encounter
--- OUTSIDE RECORDS SUMMARY | 2024-05-24 23:35 | XMS_ITS | Encounter Summary ---
Author Organization [facility] Address [address] [facility] [place] [address] Care Team Providers Care Cotton Bag Clipper Name Role Phone Briana Medeiros MD Primary Care Provider [phone] Reason for Referral * Radiology Services (Routine) - Closed Specialty Diagnoses / Procedures Referred By Contac t Referred To Contact Ultrasound Diagnoses 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) Procedures US ABDOMEN LIMITED Kizzy Licona MD [address] [place] [address] [facility] [address] [place] [address] Referral ID Status Reason Start Date Expiration Date Visits Re quested Visits Authorized [id number] Closed 09/04/2020 09/04/2021 1 1 Reason for Visit * Reason Comments Cirrhosis metoprolol 100 mg, t ook self off duloxetine Encounter Details Date Type Department Care Team (Late st Contact Info) Description 08/26/2020 2:30 PM CDT Office Visit [facility] - GI [address] [facility], [place] [address] Shireen Celestin MD [address] [address] Kizzy Licona MD [address] [place] [address] 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) (Primary Dx); Nonalcoholic steatohepatitis (RAYGOZA); Cirrhosis of liver without ascites, unspecified hepatic cirrhosis type (HCC); Metabolic syndrome; Atrial fibrillation, unspecified type (HCC); Methicillin resistant Staphylococcus aureus infection as the cause of diseases classified elsewhere; Infection and inflammatory reaction due to internal right hip prosthesis, initial encounter (HCC) Social History Tobacco Use Types Packs/Day [...] Sign Reading Time Taken Comments Blood Pressure 173/93 08/26/2020 2:12 PM CDT Pulse 74 08/26/2020 2:12 PM CDT Temperature 36.1 ??C (97 ??F) 08/26/2020 2:12 PM CDT Respiratory Rate - - Oxygen Saturation 97% 08/26/2020 2:12 PM CDT Inhaled Oxygen Concentration - - Weight 114.9 kg (253 lb 6.4 oz) 08/26/2020 2:12 PM CDT Height - - Body Mass Index 35.34 07/03/2020 8:15 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 This is a 69 year old male with history of RAYGOZA and cirrhosis. -History of MRSA bacteremia 1 year ago c/b empyema and epidural abscess. History of DM2, CAD, DVT, and Afib. -Patient was diagnosed with cirrhosis in 2018 based on imaging. -In Feb 2019, patient [...] on lasix, now on bumex 0.5mg bid. -Varices: No bleeding episodes. Last EGD 06/2020 without varices. -Encephalopathy: Had episode of confusion while hospital, likely related to medication. has noticed increased response time. Thought it was related to duloxetine. Interval events: Has been having increases in BP. discontinued his cymbalta as this might be causing his high BP readings. Had EGD since last visit. Denies hospitalizations or ER visits since last visit. Has received both covid vaccines. Alcohol: Does not drink alcohol. Tobacco: He did smoke from [id number]. Chronic medical problems: Afib on eliquis CAD, NSTEMI age 30 COPD HTN VALENTINA on BIPAP Review of Systems: Constitutional: negative for fevers, chill Eyes: negative for visual disturbance ENT: negative for hearing changes Respiratory: positive for shortness of breath Cardiovascular: negative for chest pain Gastrointestinal: negative for nausea or vomiting Genitourinary:negative for dysuria Hematologic/lymphatic: positive for easy bruising, bleeding (on eliquis) Musculoskeletal: negative for myalgias, arthralgias Neurological: negative for headaches Exam: Wt Readings from Last 3 Encounters: 08/26/20 114.9 kg (253 lb 6.4 oz) 07/03/20 111.1 kg (245 lb) 02/26/20 120.2 kg (265 lb) BP 173/93 Pulse 74 Temp 97 ??F (36.1 ??C) Wt 114.9 kg (253 lb 6.4 oz) SpO2 97% BMI 35.34 kg/m2 General appearance: normal, alert, no distress, [...] asterixis Relevant Laboratories: Recent Labs Component Name 02/20/20 1323 08/27/19 1006 08/20/19 1527 05/06/19 0231 05/05/19 0215 05/04/19 0307 05/02/19 0410 05/02/19 0410 09/19/17 0243 09/19/17 0243 09/18/17 0003 09/17/17 0433 09/06/17 1621 09/06/17 1621 09/06/17 1211 09/06/17 1157 09/04/17 0447 09/03/17 0431 07/29/17 1130 07/29/17 1130 BUN 27* 35* 39* 22 20 19 - 20 - 26 25 19 - - - 21 11 13 - - CREATININE 1.36* 1.36* 1.51* 1.15 0.96 1.12 - 1.13 - 0.6 0.6 0.6 - - - 0.7 0.6 0.6 - - NA - - - - - - - - - 138 140 139 - - - 143 141 140 - - POTASSIUM 4.1 4.4 4.4 3.2* 3.1* 3.2* - 3.6 - 4.9* 3.4* 3.6 - - - 3.8 4.9* 4.4 - - K - - - - - - - - - - - - - 4.2 3.8 - - - - 3.3* CL - - - - - - - - - 98 95* 96* - - - 108* 107 107 - - CO2 25 29 30 26 25 27 - 27 - 34* 35* 32* - - - 20* 27 27 - - CALCIUM 9.6 9.5 9.1 9.2 9.1 9.1 - 9.4 - 9.1 9.0 8.8 - - - 8.5 8.4 8.6 - - PROT - - - - - - - - - - - - - - - 6.2 5.3* 5.4* - - ALB - - - - - - - - - - - - - - - 1.8* 1.5* 1.5* - - TBILI - - - - - - - - - - - - - - - 0.3 0.3 0.3 - - ALKPHOS 134 - 178* - - - - 211* - - - - - - - 204* 190* 212* - - ALT 17 - 62* - - - - 26 - - - - - - - 10 12 12 - - AST 15 - 25 - - - - 25 - - - - - - - 21 27 26 - - ANIONGAP - - - 11 10 8 - 9 - 11 13 15 - - - [...] - 0.4* 0.4* 0.4* - - EGFR 52* 52* 46* >60 >60 >60 - >60 - >60 >60 >60 - - - >60 >60 >60 - - EGFRAFR 60 61 53* >60 >60 >60 - >60 - - - - - - - - - - - - - = values in this interval not displayed. Recent Labs Component Name 02/20/20 1323 08/20/19 1527 05/06/19 0231 WBC 8.8 10.1 6.9 HGB 13.0* 12.0* 10.1* HCT 40.0 37.4* 32.6* PLTCOUNT 144 163 176 Recent Labs Component Name 02/20/20 1323 08/20/19 1527 04/30/19 0242 INR 1.0 1.0 1.1 MELD-Na score: 10 at 02/20/2020 1:23 PM MELD score: 10 at 02/20/2020 1:23 PM Calculated from: Serum Creatinine: 1.36 mg/dL at 02/20/2020 1:23 PM Serum Sodium: 138 mmol/L (Rounded to 137 mmol/L) at 02/20/2020 1:23 PM Total Bilirubin: 0.8 mg/dL (Rounded to 1 mg/dL) at 02/20/2020 1:23 PM INR(ratio): 1 at 02/20/2020 1:23 PM Age: 69 years 3 months Chronic liver disease workup: Component Latest Ref [...] % 16 - 50 % 5 (L) [id number] 90 - 200 mg/dL 223 (H) Phenotype (PI) Comment Hepatitis C Antibody Non-reactive Non-reactive HBc Antibody Total Non-reactive Non-reactive Hepatitis B Virus Surface Antigen Non-reactive Non-reactive Last endoscopies: EGD: -09/15/17: PEG placement. No esophageal varices. -07/03/20: No esophageal or gastric varices seen. Colonoscopy: -Patient reports 2017 without polyps Last imaging: -US abd ltd 11/06/18: Hepatic cirrhosis without discrete hepatic lesion or intrahepatic biliary dilation. Patent hepatic vasculature. -US abd ltd 05/16/2019: Hepatic cirrhosis. No discrete hepatic lesion or biliary dilation. -US abd 03/19/2020: Coarse liver echotexture without discrete hepatic lesion. Liver biopsy/Fibroscan: -Fibroscan 08/26/20: techinically difficult study; unable to get valid reading Assessment: 1. Compensated RAYGOZA cirrhosis -Transplant is not a consideration at this time due to low MELD, advanced age, and multiple comorbidities. 2. Metabolic syndrome 3. A fib on eliquis 4. 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 Repeat imaging for HCC in September with US 2. Repeat EGD in 2-3 years if clinically indicated. 3. Counseled regarding low sodium diet. 4. I have also recommended a high protein diet. 5. Given worsening confusion, instructed to call my office in 1-2 weeks if confusion persists. He recently discontinue duloxetine which his felt may be contributing. If confusion persists, will begin a trial of xifaxan bid rather than lactulose has he has baseline diarrhea right now. I have asked him to return for a follow up visit in 6 months with MELD labs and AFP prior to that visit. Kizzy Licona MD Developing Machine Tender Division of Gastroenterology and Hepatology No orders [...] MG tablet Take 10 mg by mouth once daily ??? benzonatate (TESSALON) 200 MG capsule Take 1 capsule by mouth 3 times daily as needed for Cough ??? bumetanide (BUMEX) 0.5 MG tablet Take [...] ??? doxycycline hyclate (VIBRAMYCIN) 100 MG capsule 1 CAPSULE: TAKE 1 CAPSULE (100 MG) BY ORAL ROUTE DAILY ??? doxycycline hyclate (VIBRAMYCIN) 100 MG capsule Take 100 mg by mouth once daily ??? ferrous sulfate 325 (65 FE) MG tablet Take 325 mg by mouth 2 times daily with morning and evening meal ??? metoprolol succinate XL 24hr (TOPROL XL) 50 MG tablet Take 100 mg by mouth once daily ??? nystatin (NYSTOP) 234046 UNIT/GM powder Apply to affected area 2 times daily as needed Apply togroin area twice a day as needed. ??? omeprazole (PRILOSEC) 40 MG capsule Take 40 mg by mouth daily before breakfast ??? potassium chloride ER (KLOR-CON M) 20 MEQ tablet Take 20 mEq by mouth once daily ??? PROAIR HFA 108 (90 Base) MCG/ACT inhaler ??? roflumilast (DALIRESP) 500 MCG tablet Take 500 mcg by mouth once daily ??? Skin Protectants, Misc. (BASIS FACIAL MOISTURIZER) CREA 1 Each by Apply externally route as needed Reasons: Dryness Confined to a Specific area of the Body, eyes ??? SYMBICORT 160-4.5 MCG/ACT inhaler INHALE 2 PUFFS BY MOUTH TWICE A DAY ??? tamsulosin (FLOMAX) 0.4 MG capsule Take 0.4 mg by mouth at bedtime ??? tiotropium (SPIRIVA RESPIMAT) 2.5 MCG/ACT inhaler Inhale 2 puffs by mouth once daily ??? triamcinolone acetonide (KENALOG) 0.1 % cream Apply to affected area 3 times daily Apply to rash daily as needed. ??? vitamin D, ergocalciferol, (DRISDOL) 13564 UNITS capsule Take 50,000 Units by mouth every 7 days No current facility-administered medications for this visit. 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 Office Visit [facility] - GI [address] [place] [address], [place] [address] Twin Miller MD [address] [place] [address] [place] [address] 09/19/2024 2:00 PM CDT Office Visit [facility] - Orthopedic Surgery [facility] [place] [address] [place] [address] [place] [address] [address] [place] [address] documented as of this encounter Goals Goal [...] this encounter Results * US ABDOMEN LIMITED (09/19/2020 8:49 AM CDT) Anatomical Region Laterality Modality Abdomen Ultrasound 09/19/2020 8:39 AM CDT Impressions 09/19/2020 9:29 AM CDT IMPRESSION: 1.Cirrhotic liver morphology without discrete hepatic lesion or intrahepatic biliary dilation. Patent hepatic vasculature. 2.Cholelithiasis without evidence of cholecystitis. Dictated by Feliciano Lóepz MD (Resident). This report was approved ??by Feliciano López ?? on 09/19/2020 8:59 AM . I, Dr. AMBREEN GALVEZ have personally reviewed and interpreted this examination/study. This report was electronically signed by AMBREEN GALVEZ ??on 09/19/2020 9:29 AM . Narrative 09/19/2020 9:29 AM CDT EXAMINATION: Limited abdominal sonogram HISTORY: K75.81: 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, K74.60: 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 COMPARISON: Ultrasound dated 03/19/2020 FINDINGS: The liver has a coarse echotexture and nodular surface. Evaluation of the right hemiliver is limited due to poor sonographic windows. No discrete hepatic mass or intrahepatic biliary dilation is seen. Color Doppler evaluation demonstrates patency of the hepatic and portal veins. Gallstones are seen within the gallbladder without pericholecystic fluid. The gallbladder wall is normal in thickness, measuring 3 mm. Sonographic Maria's sign is negative. The common bile duct is nondilated, measuring 6.4 mm. The right kidney measures 10.1 cm in length. Limited views of the right kidney reveal no evidence of nephrolithiasis or hydronephrosis. The spleen measures 12.2 cm in length. The visible pancreas is normal in echogenicity. No ascites is present. Procedure Note Ambreen Galvez MD - 09/19/2020 EXAMINATION: Limited abdominal sonogram HISTORY: K75.81: 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, K74.60: 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 COMPARISON: Ultrasound dated 03/19/2020 FINDINGS: The liver has a coarse echotexture and nodular surface. Evaluation ofthe right hemiliver is limited due to poor sonographic windows. No discrete hepatic mass or intrahepatic biliary dilation is seen. Color Doppler evaluation demonstrates patency of the hepatic and portal veins. Gallstones are seen within the gallbladder without pericholecysticfluid. The gallbladder wall is normal in thickness, measuring 3 mm. Sonographic Maria's sign is negative. The common bile duct is nondilated, measuring 6.4 mm. The right kidney measures 10.1 cm in length. Limited views of the right kidney reveal no evidence of nephrolithiasis or hydronephrosis. Thespleen measures 12.2 cm in length. The visible pancreas is normal in echogenicity. No ascites is present. IMPRESSION: 1.Cirrhotic liver morphology without discrete hepatic lesion or intrahepatic biliary dilation. Patent hepatic vasculature. 2.Cholelithiasis without evidence of cholecystitis. Dictated by Feliciano López MD (Resident). This report was approved by Feliciano López on 09/19/2020 8:59 AM. I, Dr. AMBREEN GALVEZ have personally reviewed and interpreted this examination/study. This report was electronically signed by AMBREEN GALVEZ on 19:29 AM . Kizzy Licona MD ORDERABLES * (ABNORMAL) CBC WITH DIFFERENTIAL (09/05/2020 1:25 PM CDT) White Blood Cell Count 10.3 3.8 - 10.8 Thousand/u L [facility] RBC 5.23 4.20 - 5.80 Million/uL [facility] Hemoglobin 15.3 13.2 - 17.1 g/dL [facility] Hematocrit 47.4 38.5 - 50.0 % [facility] MCV 90.6 80.0 - 100.0 fL [facility] MCH 29.3 27.0 - 33.0 pg [facility] MCHC 32.3 32.0 - 36.0 g/dL [facility] RDW 13.4 11.0 - 15.0 % [facility] Platelet Count 113(L) 140 - 400 Thousand/u L [facility] MPV 13.7(H) 7.5 - 12.5 fL [facility] Neutrophil Absolute 8178(H) 1500 - 7800 cells/uL [facility] Lymphocytes Absolute 731(L) 850 - 3900 cells/uL [facility] Absolute Monocytes 865 200 - 950 cells/uL [facility] Eosinophils Absolute 464 15 - 500 cells/uL [facility] Basophils Absolute 62 0 - 200 cells/uL [facility] Granulocytes % 79.4 % [facility] Lymphocytes % 7.1 % [facility] Monocytes % 8.4 % [facility] Eosinophils % 4.5 % [facility] Basophils % 0.6 % [facility] Comment: Test Performed at: [facility] [address] [place], [place] ??[phone] ROSS LOPEZ DO,MPH Blood BLOOD SPECIMEN / Unknown 09/05/2020 1:25 PM CDT 09/05/2020 1:26 PM CDT Kizzy Licona MD LAB - HEMATOLOGY ORD ERABLES Performing Organization Address [facility] de Phone Number [facility] [address] [place] [address] * PT-INR (09/05/2020 1:25 PM CDT) INR 1.1 [facility] Comment: Reference Range ? 0.9-1.1 Moderate-intensity Warfarin Therapy 2.0-3.0 Higher-intensity Warfarin Therapy ?? 3.0-4.0 PT 11.1 9.0 - 11.5 sec [facility] Comment: For additional information, please refer to http://education.CommProve/faq/EOJ601 (This link is being provided for informational/ educational purposes only.) Test Performed at: [facility] [address] [place], [place] ??[phone] ROSS LOPEZ DO,MPH Blood BLOOD SPECIMEN / Unknown 09/05/2020 1:25 PM CDT 09/05/2020 1:26 PM CDT Kizzy Licona MD LAB - COAGULATION OR DERABLES Performing Organization Address [facility] de Phone Number [facility] [address] [place] [address] * (ABNORMAL) COMPREHENSIVE METABOLIC PANEL (09/05/2020 1:25 PM CDT) Glucose 109(H) 65 - 99 mg/dL [facility] Comment: ? Fasting reference interval For someone without known diabetes, a glucose value between 100 and 125 mg/dL is consistent with prediabetes and should be confirmed with a follow-up test. BUN 27(H) 7 - 25 mg/dL [facility] Creatinine 1.46(H) 0.70 - 1.18 mg/dL [facility] Comment: For patients >49 years of age, the reference limit for Creatinine is approximately 13% higher for people identified as -Maldivian. eGFR by MDRD 48(L) > OR = 60 mL/min/1. 73m2 [facility] eGFR by MDRD 55(L) > OR = 60 mL/min/1. 73m2 [facility] BUN/Creatinine Ratio 18 6 - 22 (calc) [facility] Sodium 140 135 - 146 mmol/L [facility] Potassium 4.2 3.5 - 5.3 mmol/L [facility] Chloride 103 98 - 110 mmol/L [facility] CO2 28 20 - 32 mmol/L [facility] Calcium 9.9 8.6 - 10.3 mg/dL [facility] Protein Total 7.1 6.1 - 8.1 g/dL [facility] Albumin 3.9 3.6 - 5.1 g/dL [facility] Globulin Total 3.2 1.9 - 3.7 g/dL (calc) [facility] Albumin/Globulin Ratio 1.2 1.0 - 2.5 (calc) [facility] Bilirubin Total 0.8 0.2 - 1.2 mg/dL [facility] Alkaline Phosphatase 126 35 - 144 U/L [facility] AST 20 10 - 35 U/L [facility] ALT 24 9 - 46 U/L [facility] Comment: Test Performed at: [facility] ??[phone] ROSS LOPEZ DO,MPH Blood BLOOD SPECIMEN / Unknown 09/05/2020 1:25 PM CDT 09/05/2020 1:26 PM CDT Kizzy Licona MD LAB - CHEMISTRY ROYCE KLINE [facility] [address] [place] [address] * ALPHA FETOPROTEIN BLOOD TUMOR MARKER (09/05/2020 1:25 PM CDT) Alpha-Fetoprotei n Tumor Marker 1.5 <6.1 ng/mL [facility] Comment: This test was performed using the Flex [place] chemiluminescent method. Values obtained from different assay methods cannot be used interchangeably. AFP levels, regardless of value, should not be interpreted as absolute evidence of the presence or absence of disease. REPORT COMMENT: FASTING:YES Test Performed at: [facility] [address] [place], [place] ??[phone] ROSS LOPEZ DO,MPH Blood BLOOD SPECIMEN / Unknown 09/05/2020 1:25 PM CDT 09/05/2020 1:26 PM CDT Kizzy Licona MD LAB - CHEMISTRY ROYCE [facility] Organization Address City/State/ZIP Co de Phone Number [facility] [address] [place] [address] documented in this encounter Visit Diagnoses Diagnosis 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)- Primary Other chronic nonalcoholic liver disease Nonalcoholic steatohepatitis (RAYGOZA) Other chronic nonalcoholic liver disease Cirrhosis of liver without ascites, unspecified hepatic cirrhosis type (HCC) Metabolic syndrome Dysmetabolic Syndrome X Atrial fibrillation, unspecified type (HCC) Methicillin resistant Staphylococcus aureus infection as the cause of diseases classified elsewhere Infection and inflammatory reaction due to internal right hip prosthesis, initial encounter (HCC) 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) Other chronic nonalcoholic liver disease documented in this encounter Additional Health Concerns Infection Onset Date Last Indicated Resolved Time 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
--- OUTSIDE RECORDS SUMMARY | 2024-05-24 23:35 | XMS_ITS | Encounter Summary ---
Author Organization [facility] Address [address] [facility] [place] [address] Care Team Providers Care Shift Mechanic Name Role Phone Briana Medeiros MD Primary Care Provider [phone] Reason for Referral * Radiology Services (Routine) - Closed Specialty Diagnoses / Procedures Referred By Contac t Referred To Contact Ultrasound Diagnoses 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) Metabolic syndrome Procedures US ABDOMEN LIMITED Jackelyn Licona MD [address] [place] [address] [address] Referral ID Status Reason Start Date Expiration Date Visits Re quested Visits Authorized [id number] Closed 02/26/2020 02/25/2021 1 1 Reason for Visit * Radiology Services (Routine) - Closed Specialty Diagnoses / Procedures Referred By Contac t Referred To Contact Ultrasound Diagnoses 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) Metabolic syndrome Procedures US ABDOMEN LIMITED Jackelyn Licona MD [address] [place] [address] [address] Referral ID Status Reason Start Date Expiration Date Visits Re quested Visits Authorized [id number] Closed 02/26/2020 02/25/2021 1 1 Encounter Details Date Type Department Care Team (Late st Contact Info) Description 03/19/2020 9:41 AM CDT - 03/19/2020 11:59 PM CDT Hospital Encounter [facility] [id number] [place] [address] Jackelyn Licona MD [address] [place] [phone] Discharge Disposition: Home or Self Care Social [...] have Coronavirus / COVID-19? No / Unsure 03/19/2020 9:33 AM CDT documented as of this encounter Functional [...] 1 (one) tablet by mouth once daily bumetanide (BUMEX) 0.5 MG tablet Take [...] 1 (one) tablet by mouth once daily tamsulosin (FLOMAX) 0.4 MG capsuleIndications:Othe r cirrhosis of liver (HCC) Take 1 (one) capsule by mouth at bedtime 1 02/08/2018 albuterol (PROVENTIL;VENTOLIN) (5 MG/ML) 0.5% nebulizer solution 2.5 mg. 1 [address] 09/04/2017 10/12/2023 baclofen (LIORESAL) 10 MG tabletIndications:Other cirrhosis of liver (HCC) Take 10 mg by mouth once daily 0 02/01/2018 10/21/2020 benzonatate (TESSALON) 200 MG capsule Take 1 capsule by mouth 3 times daily as needed for Cough 02/15/2019 10/12/2023 cyanocobalamin (VITAMIN B-12) 500 MCG tablet Take 1 (one) tablet by mouth once daily 11/03/2023 diphenhydrAMINE (BENADRYL) 25 MG capsule Take 1 (one) capsule by mouth 2 times daily doxycycline hyclate (VIBRAMYCIN) 100 MG capsule 1 CAPSULE: TAKE 1 CAPSULE (100 MG) BY ORAL ROUTE DAILY 11/28/2019 10/21/2020 nystatin (MYCOSTATIN) 507991 UNIT/GM powder Apply to affected area 2 times daily as needed Apply to groin area twice a day as needed. 02/23/2022 omeprazole (PRILOSEC) 40 MG capsule Take 1 (one) capsule by mouth daily before breakfast 10/07/2022 potassium chloride ER (KLOR-CON M) 20 MEQ tablet Take 1 (one) tablet by mouth once daily 11/03/2023 PROAIR HFA 108 (90 Base) MCG/ACT inhaler Inhale 2 puffs by mouth every 4 hours as needed 11/06/2018 12/30/2020 Skin Protectants, Misc. (BASIS FACIAL MOISTURIZER) CREAIndications:Local Dryness of Skin,eyes 1 Each by Apply externally route as needed Reasons: Dryness Confined to a Specific area of the Body, eyes 10/12/2023 SYMBICORT 160-4.5 MCG/ACT inhalerIndications:Othe r cirrhosis of liver (HCC) INHALE 2 PUFFS BY MOUTH TWICE A DAY 6 02/01/2018 08/17/2021 tiotropium (SPIRIVA RESPIMAT) 2.5 MCG/ACT inhaler Inhale 2 puffs by mouth once daily 08/17/2021 tobramycin (TOBREX) 0.3 % ophthalmic solution PLACE 2 DROPS IN EACH EYE EVERY 4 HOURS 09/07/2019 10/20/2021 triamcinolone acetonide (KENALOG) 0.1 % cream Apply to affected area 2 times daily as needed Apply to rash daily as needed. 10/12/2023 vitamin D, ergocalciferol, (DRISDOL) 33984 UNITS capsuleIndications:Othe r cirrhosis of liver (HCC) Take 50,000 Units by mouth every 7 days 0 02/02/2018 03/21/2023 documented as of this encounter Plan of Treatment Upcoming Encounters Date Type Department Care Team (Late st Contact Info) Description 07/09/2024 12:30 PM TURNTABLE MAN Office Visit [facility] - GI [address] [place] [address], [place] [address] Twin Miller MD [address] [place] [address] [place] [address] 09/19/2024 2:00 PM CDT Office Visit [facility] - Orthopedic [facility] [address] [facility] [place] [address] Larry Alexander MD [address] [facility] [address] [place] [address] documented as of this encounter Goals Goal [...] Associated Diagnosis Comments US ABDOMEN LIMITED Routine 03/19/2020 11 :44 AM CDT 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) Metabolic syndrome documented in this encounter Results * US ABDOMEN LIMITED (03/19/2020 11:44 AM CDT) Anatomical Region Laterality Modality Abdomen Ultrasound 03/19/2020 10:3 3 AM CDT Impressions 03/19/2020 10:56 AM CDT IMPRESSION: Coarse liver echotexture without discrete hepatic lesion. Report dictated by Vnaessa Wu MD (residential team leader). I, Dr. EPI HORVATH have personally reviewed and interpreted this examination/study. This report was electronically signed by EPI HORVATH ??on 03/19/2020 10:56 AM . Narrative 03/19/2020 10:56 AM CDT EXAMINATION: Limited right upper quadrant abdominal sonogram HISTORY: K75.81: 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 K74.60: 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 E88.81: Metabolic syndrome COMPARISON: Comparison is made with a study from 03/16/2019 FINDINGS: Limited view of the right hepatic lobe. The liver has a coarse echotexture and a mildly nodular surface, which may indicate cirrhotic morphology. No discrete hepatic mass or intrahepatic biliary dilatation is seen. The gallbladder wall is normal in thickness, measuring 3 mm. Sonographic Maria's sign is negative. The common bile duct is nondilated, measuring 6 mm. The right kidney measures 11.0 x 5.0 x 4.7 cm. Limited views of the right kidney reveal no evidence of nephrolithiasis or hydronephrosis. The spleen measures 14 cm in length. The visible pancreas is normal in echogenicity. No ascites is present. Procedure Note Epi Horvath MD - 03/19/2020 EXAMINATION: Limited right upper quadrant abdominal sonogram HISTORY: K75.81: 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 K74.60: 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 E88.81: Metabolic syndrome COMPARISON: Comparison is made with a study from 03/16/2019 FINDINGS: Limited view of the right hepatic lobe. The liver has a coarse echotexture and a mildly nodular surface, whichmay indicate cirrhotic morphology. No discrete hepatic mass or intrahepatic biliary dilatation is seen. The gallbladder wall is normal in thickness, measuring 3 mm. Sonographic Maria's sign is negative. The common bile duct is nondilated, measuring6 mm. The right kidney measures 11.0 x 5.0 x 4.7 cm. Limited views of theright kidney reveal no evidence of nephrolithiasis or hydronephrosis. Thespleen measures 14 cm in length. The visible pancreas is normal inechogenicity. No ascites is present. IMPRESSION: Coarse liver echotexture without discrete hepatic lesion. Report dictated by Vanessa Wu MD (residential team leader). I, Dr. EPI HORVATH have personally reviewed and interpreted this examination/study. This report was electronically signed by EPI HORVATH on 03/19/2020 10:56 AM . 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
--- OUTSIDE RECORDS SUMMARY | 2024-05-24 23:35 | XMS_ITS | Encounter Summary ---
Author Organization [facility] Address [address] [facility] [place] [address] Care Team Providers Care Electrician Research Name Role Phone Briana Medeiros MD Primary Care Provider [phone] Encounter Details Date Type Department Care Team (Late st Contact Info) Description 09/04/2020 Orders Only [facility] - [address] [facility], [place] [phone] Jackelyn Licona MD [address] [place] [address] 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) Social [...] st Contact Info) Description 07/09/2024 12:30 PM RUG CUTTER HELPER Office Visit [facility] - GI [address] [facility] [place] [address] Twin Miller MD [facility] 2L [place] [address] 09/19/2024 2:00 PM CDT Office Visit [facility] - [facility] [address] [facility] [place] [phone] Larry Alexander MD [address] [facility] 280 [place] [address] documented as of this encounter Goals Goal [...] Diagnosis Comments ALPHA FETOPROTEIN BLOOD TUMOR MARKER Routine 09/05/2020 1:25 PM CDT 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) PT-INR STAT 09/05/2020 1:25 PM CDT 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) CBC W AUTO DIFFERENTIAL Routine 09/05/2020 1:25 PM CDT 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) COMPREHENSIVE METABOLIC PANEL Routine 09/05/2020 1:25 PM CDT 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) documented in this encounter Results * (ABNORMAL) CBC WITH DIFFERENTIAL (09/05/2020 1:25 PM CDT) Pathologist [facility] White Blood Cell Count 10.3 3.8 - [...] 0.6 % [facility] Comment: Test Performed at: [facility] [id number] [place] [address] ??[phone] ROSS LOPEZ DO,MPH Blood BLOOD SPECIMEN / Unknown 09/05/2020 1:25 PM CDT 09/05/2020 1:26 PM CDT Jackelyn Licona MD LAB - HEMATOLOGY ORD ERABLES [facility] [address] [place] [address] * PT-INR (09/05/2020 1:25 PM CDT) [facility] INR 1.1 [facility] Comment: Reference Range ? 0.9-1.1 Moderate-intensity Warfarin Therapy 2.0-3.0 Higher-intensity Warfarin Therapy ?? 3.0-4.0 PT 11.1 9.0 - 11.5 sec [facility] Comment: For additional information, please refer to http://education.Zoobe/faq/VRP798 (This link is being provided for informational/ educational purposes only.) Test Performed at: [facility] [address] [place], [place] ??[phone] ROSS LOPEZ DO,MPH Blood BLOOD SPECIMEN / Unknown 09/05/2020 1:25 PM CDT 09/05/2020 1:26 PM CDT Jackelyn Licona MD LAB - COAGULATION OR DERABLES [facility] [address] [place] [address] * (ABNORMAL) COMPREHENSIVE METABOLIC PANEL (09/05/2020 1:25 PM CDT) Pathologist [facility] Glucose 109(H) 65 - 99 mg/dL [facility] [...] approximately 13% higher for people identified as -Portuguese. eGFR by MDRD 48(L) > OR = [...] 46 U/L [facility] Comment: Test Performed at: [facility] [address] [place] [address] ??[phone] ROSS LOPEZ DO,MPH Blood BLOOD SPECIMEN / Unknown 09/05/2020 1:25 PM CDT 09/05/2020 1:26 PM CDT Jackelyn Licona MD LAB - CHEMISTRY [place]Y[facility] Performing Organization Address [facility] de Phone Number [facility] [address] [place] [address] * ALPHA FETOPROTEIN BLOOD TUMOR MARKER (09/05/2020 [...] disease. REPORT COMMENT: FASTING:YES Test Performed at: [facility] [address] [place] [address] ??[phone] ROSS LOPEZ DO,MPH Blood BLOOD SPECIMEN / Unknown 09/05/2020 1:25 PM CDT 09/05/2020 1:26 PM CDT Jackelyn Licona MD LAB - CHEMISTRY ROYCE KLINE Performing Organization Address [facility] Co de Phone Number [facility] [address] [place] [address] documented in this encounter Visit Diagnoses Diagnosis 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) Other chronic nonalcoholic liver disease documented in this encounter Additional Health Concerns Infection Onset Date Last Indicated Resolved Time 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
--- OUTSIDE RECORDS SUMMARY | 2024-05-24 23:35 | XMS_ITS | Encounter Summary ---
Author Organization [facility] Address [address] [facility] [place] [address] Care Team Providers Care Vocational Nursing Instructor Name Role Phone Briana Medeiros MD Primary Care Provider [phone] Encounter Details Date Type Department Care Team (Latest Contact Info) Description 03/03/2020 Travel Social History Tobacco Use Types Packs/Day [...] have Coronavirus / COVID-19? Unable to assess 03/03/2020 9:20 AM CDT documented as of this encounter [...] st Contact Info) Description 07/09/2024 12:30 PM ROD CUP FILLER Office Visit [facility] - GI [address] [facility], [place] [address] Twin Miller MD [facility] [address]L [facility] [place] [address] 09/19/2024 2:00 PM CDT Office Visit [facility] - Orthopedic Surgery [address] [facility] [place] [phone] Larry Alexander MD [address] [facility] 280 [place] [address] documented as of this encounter Goals Goal [...] documented as of this encounter Care Teams Vocational Nursing Instructor Relationship Specialty Start Date End Date Briana Medeiros MD [address] [place] [address] PCP - General 02/15/18 02/22/22 documented as of this encounter
--- OUTSIDE RECORDS SUMMARY | 2024-05-24 23:35 | XMS_ITS | Encounter Summary ---
Author Organization [facility] Address [address] [facility] [place] [address] Care Team Providers Care Dental Prosthetist Name Role Phone Briana Medeiros MD Primary Care Provider [phone] Encounter Details Date Type Department Care Team (Latest Contact Info) Description 10/21/2020 Travel Social History Tobacco Use Types Packs/Day [...] have Coronavirus / COVID-19? No / Unsure 10/21/2020 10:36 AM CDT documented as of this encounter [...] st Contact Info) Description 07/09/2024 12:30 PM WAREHOUSE SHIPPING CLERK Office Visit [facility] - GI [address] [facility], [place] [address] Twin Miller MD [address] [facility] [address]L [facility] [place] [address] 09/19/2024 2:00 PM CDT Office Visit [facility] - Orthopedic Surgery [address] [facility] [place] [phone] Larry Alexander MD [address] [facility] 280 [place] [address] documented as of this encounter Goals Goal [...] documented as of this encounter Care Teams Dental Prosthetist Relationship Specialty Start Date End Date Briana Medeiros MD [address] [place] [address] PCP - General 02/15/18 02/22/22 documented as of this encounter
--- OUTSIDE RECORDS SUMMARY | 2024-05-24 23:35 | XMS_ITS | Encounter Summary ---
Author Organization [facility] Address [address] [facility] [place] [address] Care Team Providers Care Hotel Registration Clerk Name Role Phone Briana Medeiros MD Primary Care Provider [phone] Encounter Details Date Type Department Care Team (Latest Contact Info) Description 08/05/2020 9:40 AM WORM FARMER - 08/05/2020 11:59 PM [facility] Hospital Encounter [facility] [address]L [address] [facility] [address] Larry Alexander MD [address] [id number] Discharge Disposition: Home or Self Care Social [...] Date End Date acetaminophen (TYLENOL) 325 MG tabletIndications:Ot her cirrhosis [...] mouth once daily tamsulosin (FLOMAX) 0.4 MG capsuleIndications:O ther cirrhosis of liver (HCC) Take 1 (one) capsule by mouth at bedtime 1 02/08/2018 albuterol (PROVENTIL;VENTOLIN) (5 MG/ML) 0.5% nebulizer solution 2.5 mg. 1 [address] 09/04/2017 10/12/2023 baclofen (LIORESAL) 10 MG tabletIndications:Ot her cirrhosis of liver (HCC) Take 10 mg by mouth once daily 0 02/01/2018 10/21/2020 benzonatate (TESSALON) 200 MG capsule Take 1 capsule by mouth 3 times daily as needed for Cough 02/15/2019 10/12/2023 cyanocobalamin (VITAMIN B-12) 500 MCG tablet Take 1 (one) tablet by mouth once daily 11/03/2023 diphenhydrAMINE (BENADRYL) 25 MG capsule Take 1 (one) capsule by mouth 2 times daily 10/12/2023 doxycycline hyclate (VIBRAMYCIN) 100 MG capsule 1 CAPSULE: TAKE 1 CAPSULE (100 MG) BY ORAL ROUTE DAILY 11/28/2019 10/21/2020 DULoxetine (CYMBALTA) 30 MG capsuleIndications:M usculoskeletal Pain Take 30 mg by mouth once daily Reasons: Musculoskeletal Pain 08/26/2020 nystatin (MYCOSTATIN) 202049 UNIT/GM powder Apply to affected area 2 [...] mouth every 4 hours as needed 11/06/2018 12/31/19 21 Skin Protectants, Misc. (BASIS FACIAL MOISTURIZER) CREAIndications:Loca l Dryness of Skin,eyes 1 Each by Apply externally route as needed Reasons: Dryness Confined to a Specific area of the Body, eyes SYMBICORT 160-4.5 MCG/ACT inhalerIndications:O ther cirrhosis of liver (HCC) INHALE 2 PUFFS [...] as needed. 10/12/2023 vitamin D, ergocalciferol, (DRISDOL) 48219 UNITS capsuleIndications:O ther cirrhosis of liver (HCC) Take 50,000 Units by mouth every 7 days 0 02/02/2018 03/21/2023 documented as of this encounter Plan of Treatment Upcoming Encounters Date Type Department Care Team (Late st Contact Info) Description 07/09/2024 12:30 PM WORM FARMER Office Visit [facility] - GI [address] [place] [address], [place] [address] Twin Miller MD [address] [place] [address] [place] [address] 09/19/2024 2:00 PM CDT Office Visit [facility] - Orthopedic Surgery [address] [facility] [place] [phone] Larry Alexander MD [address] [facility] 280 [place] [address] documented as of this encounter Goals Goal Patient Goal Type Associated Problems Recent Progress Patient-Stated? Author Medication Management General On track( 12:04 PM CDT) No Monty Gentile, RN Note: Expected end date: Interventions: Take all medications as prescribed Let your doctor know right away about any changes in your medications Make sure to request a refill of your medication at least one week prior to your last dose Mobility General On track( 12:04 PM CDT) No Nita Bryant, RN Note: Expected end date: 08/05/2019 The goal is to maintain or improve your mobility at the optimum level for you. 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 This report was electronically signed by SILAS NGUYỄN MD ??on 08/05/2020 10:07 AM . Narrative 08/05/2020 10:07 AM WORM FARMER Exam: 1. XR PELVIS 1 view 2. 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
--- OUTSIDE RECORDS SUMMARY | 2024-05-24 23:35 | XMS_ITS | Encounter Summary ---
Author Organization [facility] Address [address] [facility] [place] [address] Care Team Providers Care Alpine Guide Name Role Phone Briana Medeiros MD Primary Care Provider [phone] Reason for Visit * Auth/Cert Specialty Diagnoses / Procedures Referred By Contsara t Referred To Contact Diagnoses 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) Metabolic syndrome K75.81, K74.60 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 E88.81 Metabolic syndrome Procedures NC ED EGD FLEX TRANSORAL DX NC EGD FLEX TRANSORAL W BX SNGL OR MULT ESOPHAGOGASTRODUODENOSCOPY (EGD) DIAGNOSTIC Referral ID Status Reason Start Date Expiration Date Visits Re quested Visits Authorized [id number] 1 1 Encounter Details Date Type Department Care Team (Late st Contact Info) Description 07/03/2020 9:[address] [facility] - 07/03/2020 10:[address] [facility] Surgery [facility] [address] [place] [address] Jackelyn Licona MD [address] [place] [address] ESOPHAGOGASTRODUODENOSCOPY (EGD) DIAGNOSTIC--L[place]ONA Surgery Details Date/Time Status Location OR Service Patient Class Case Class Case Type Trauma Case? 07/03/2020 9:30 AM Posted [facility] Endoscopy ENDO 4 Gastroenterology Surgery Day Care Panel 1 Procedure LRB Anes Op Region Wound Class Comments ESOPHAGOGASTRODUODENOSCOPY ( EGD) DIAGNOSTIC--LICONA N/A MAC Abdomen NA A. esophageal erythema bx Surgeon Surgeon Role Service Panel Jackelyn Licona MD Primary Gastroenterology 1 Special Needs EGD Mason Keys [address] Licona Thanks!! documented in this encounter Social History Tobacco [...] AM CDT documented as of this encounter Last Filed Vital Signs Vital Sign Reading Time Taken Comments Blood Pressure 153/107 07/03/2020 8:28 AM PLASTIC SHEETS FINISHING SUPERVISOR Pulse 86 07/03/2020 8:28 AM PLASTIC SHEETS FINISHING SUPERVISOR Temperature 36.7 ??C (98 ??F) 07/03/2020 8:28 AM PLASTIC SHEETS FINISHING SUPERVISOR Respiratory Rate 24 07/03/2020 8:28 AM PLASTIC SHEETS FINISHING SUPERVISOR Oxygen Saturation 97% 07/03/2020 8:28 AM PLASTIC SHEETS FINISHING SUPERVISOR Inhaled Oxygen Concentration 96% 07/03/2020 8 :28 AM PLASTIC SHEETS FINISHING SUPERVISOR Weight 111.1 kg (245 lb) 07/03/2020 8:15 AM PLASTIC SHEETS FINISHING SUPERVISOR Height 180.3 cm (5' 11 ) 07/03/2020 8:15 AM PLASTIC SHEETS FINISHING SUPERVISOR Body Mass Index 34.17 07/03/2020 8:15 AM PLASTIC SHEETS FINISHING SUPERVISOR documented in this encounter Functional Status [...] this encounter Discharge Instructions * Discharge Instructions* Erika Gama RN - 07/03/2020 10:48 AM PLASTIC SHEETS FINISHING SUPERVISOR Images from the original note were not included. Patient Education Upper Endoscopy WHAT YOU NEED TO KNOW: An upper endoscopy is also called an upper gastrointestinal (GI) endoscopy, or an esophagogastroduodenoscopy (EGD). You may feel bloated, gassy, or have some abdominal discomfort after your procedure. Your throat may be sore for 24 to 36 hours. You may burp or pass gas from air that is still insideyour body. DISCHARGE INSTRUCTIONS: Call 911 if: ?? You have sudden chest pain or trouble breathing. Seek care immediately if: ?? You feel dizzy or faint. ?? You have trouble swallowing. ?? You have severe throat pain. ?? Your bowel movements are very dark or black. ?? Your abdomen is hard and firm and you have severe pain. ?? You vomit blood. Contact your healthcare provider if: ?? You feel full or bloated and cannot burp or pass gas. ?? You have not had a bowel movement for 3 days after your procedure. ?? You have neck pain. ?? You have a fever or chills. ?? You have nausea or are vomiting. ?? You have a rash or hives. ?? You have questions or concerns about your [...] ask them during your visits. ?? Copyright [employer] 2020 Information is for End User's use only and may not be sold, redistributed or otherwise used for commercial purposes. All illustrations and images included in CareNotes?? are the copyrighted property of [employer]. or [employer] The above information is an hearing aid technician only. It is not intended as medical advice for individual conditions or treatments. Talk to your doctor, nurse or pharmacist before following any medical regimen to see if it is safe and effective for you. TIC SHEETS FINISHING SUPERVISOR documented in this encounter Medications at Time [...] ORAL ROUTE DAILY 11/28/2019 10/21/2020 nystatin (MYCOSTATIN) 168632 UNIT/GM powder Apply to affected area 2 [...] as needed. 10/12/2023 vitamin D, ergocalciferol, (DRISDOL) 12435 UNITS capsuleIndications:Othe r cirrhosis of liver (HCC) Take 50,000 Units by mouth every 7 days 0 02/02/2018 03/21/2023 documented as of this encounter H&P Notes * Jackelyn Licona MD - 07/03/2020 8:37 AM CST PRE-PROCEDURE HISTORY & PHYSICAL NOTE (Presedation assessment per Anesthesia Team) 07/03/2020 8:37 AM Patient: Mason Keys, date of 1950 Procedure(s) planned: EGD Indication(s): variceal screening History: Patient Active Problem List: Acute embolism [...] RAYGOZA Infection of right prosthetic hip joint Past Medical History: Diagnosis Date ??? Actinic keratosis ??? Arthritis ??? Asthma ??? Atrial fibrillation, chronic ??? Basal cell carcinoma ??? CAD (coronary artery disease) ??? Clotting disorder ??? Colitis ??? COPD (chronic obstructive pulmonary disease) ??? Diabetes ??? DVT (deep venous thrombosis) ??? Dyslipidemia ??? Eczema ??? GERD (gastroesophageal reflux disease) ??? Heart attack ??? High blood pressure ??? Hx of blood clots ??? Keloid ??? Kidney disease ??? Lentigo maligna melanoma ??? MRSA (methicillin resistant staph aureus) culture positive 07/29/2017; 02/04/19; 04/29/2019 07/29/17-Disc- tissue culture MRSA; R hip; nasal swab+ ??? Obstructive sleep apnea ??? VALENT[place] (obstructive sleep apnea) ??? Other cirrhosis of liver ??? Peripheral neuropathy ??? Psoriasis ??? S/P PICC central line placement 02/13/2019 [facility] VAT R basilic ??? Seizures ??? Squamous cell carcinoma ??? VRE (vancomycin resistant enterococcus) culture positive 04/29/2019 rectal swab+ Past Surgical History: Procedure Laterality Date ??? Cataract Removal Bilateral ??? ENDOSCOPY, UPPER N/A 09/15/2017 N/A; ESOPHAGOGASTRODUODENOSCOPY (EGD) DIAGNOSTIC ??? EXCISION BURSA Right 02/08/2019 Right; EXCISION [...] around the eyes , puffy, itchy ??? Scopace [Scopolamine] Other and FOLEY ARTIST Dysfunction delirium ??? Tobramycin Eye Itching red around the eyes, puffy, itchy No current facility-administered medications for this encounter. Review of systems: Chest pain: No. Shortness of breath: No. Review of systems otherwise negative. Physical Exam: BP 153/107 Pulse 86 Temp 98 ??F (36.7 ??C) Resp 24 Ht 1.803 m (5' 11 ) Wt 111.1 kg (245 lb) SpO2 97% BMI 34.17 kg/m2 GENERAL: The patient is alert, oriented and [...] there are no changes. Jackelyn Licona MD TIC SHEETS FINISHING SUPERVISOR documented in this encounter Plan of Treatment Upcoming Encounters Date Type Department Care Team (Late st Contact Info) Description 07/09/2024 12:30 PM PLASTIC SHEETS FINISHING SUPERVISOR Office Visit [facility] - GI [address] [facility] [place] [address] Twin Miller MD [facility] [place] [address] 09/19/2024 2:00 PM CDT Office Visit [facility] - Orthopedic Surgery [address] [place] [phone] Larry Alexander MD [address] [facility] [address] [place] [address] documented as of this encounter Goals Goal [...] Date/Time Associated Diagnosis Comments PATHOLOGY TISSUE Routine 07/03/2020 10:2 0 AM PLASTIC SHEETS FINISHING SUPERVISOR 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) Metabolic syndrome NC ED EGD FLEX TRANSORAL DX 07/03/2020 10:14 AM PLASTIC SHEETS FINISHING SUPERVISOR 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) Metabolic syndrome Special Needs EGD Mason Keys [address] Licona Thanks!! EGD Routine 07/03/2020 10:03 AM PLASTIC SHEETS FINISHING SUPERVISOR GLUCOSE - POINT OF CARE Routine 07/03/2020 8:27 AM PLASTIC SHEETS FINISHING SUPERVISOR documented in this encounter Results * PATHOLOGY TISSUE (07/03/2020 10:20 AM PLASTIC SHEETS FINISHING SUPERVISOR) Case Report Surgical Pathology Report ? Case: [id number] ? Authorizing Provider: ??Jackelyn Licona MD ? Collected: ? 07/03/2020 10:20 AM ? Ordering Location: ? [facility] ?Received: ?07/03/2020 11:20 AM ? Pathologist: ? Jayshree Merino MD ? Specimen: ?Esophagus, esophageal erythema bx ? 07/04/2020 6:22 PM PLASTIC SHEETS FINISHING SUPERVISOR [facility] Final Diagnosis Esophagus, erythema, biopsy (A): - Focal parakeratosis, see comment 07/04/2020 6:[address] [facility] Microscopic Description and Comment The esophageal biopsy has a small focus of parakeratosis but is otherwise without significant findings (no inflammation, erosion, or prominent reactive changes). Given the focal parakeratosis, a GMS stain was performed, but is negative for yeast or pseudohyphae. 07/04/2020 6:22 PM [facility] Clinical History The patient is a 69 year old man with a history of cirrhosis who presented for variceal surveillance . Operative procedure/findings: EGD - multiple plaques in the middle third of the esophagus, biopsied. 07/04/2020 6:22 PM [facility] Gross Description The requisition and specimen(s) are labeled with the patient's name, Mason Keys. Received in formalin, specimen A , are 2 turner-white tissue fragments each measuring 0.5 x 0.2 x 0.1 cm. The specimen is submitted in toto in cassette A1.OW 07/04/2020 6:22 PM [facility] Disclaimer The performance characteristics of all immunohistochemical and indirect immunofluorescence stains (if any) cited in this report were determined by the Histopathology Laboratory of [facility]. Some of these tests were developed [...] and interpreted by the attending (teaching) pathologist. 07/04/2020 6:22 PM [facility] Embedded Images 07/04/2020 6:22 PM [facility] Biopsy, NOS REGION OF ESOPHAGUS / Unknown 07/03/2020 10:20 AM PLASTIC SHEETS FINISHING SUPERVISOR 07/03/2020 11:20 AM PLASTIC SHEETS FINISHING SUPERVISOR Comment:Pre-op diagnosis: K75.81, K74.60 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 E88.81 Metabolic syndrome Jackelyn Licona MD LAB - PATHOLOGY/CYTO LOGY ORDERABLES [facility] [address] [phone] * EGD (07/03/2020 10:03 AM PLASTIC SHEETS FINISHING SUPERVISOR) Report Endoscopy POC Endoscopy Department Report _ Patient Name: Mason Keys ?Procedure Date: 07/03/2020 10:03 AM ? Date [...] ?of liver disease). ?- Return to Liver [facility] as previously scheduled. ? Attending Participation: ??I personally performed the entire procedure. ? Procedure Code(s): ? --- Professional --- ? 02949, Esophagogastroduod enoscopy, flexible, transoral; with biopsy, ? single or multiple Diagnosis Code(s): ?--- Professional --- ?K22.8, Other specified diseases of esophagus ?K31.89, Other diseases of stomach and duodenum ?K74.60, Unspecified cirrhosis of liver CPT copyright 2019 [employer]. All rights reserved. The codes documented in this report are preliminary and upon assembler truck trailer review may be revised to meet current compliance requirements. Jackelyn Licona, 07/03/2020 10:32:16 AM Note Initiated On: 07/03/2020 10:03 AM Number of Addenda: 0 ? [facility] ? [address] [place] [address] [facility] 07/03/2020 10:0 3 AM PLASTIC SHEETS FINISHING SUPERVISOR Jackelyn Licona MD GI PROCEDURE ORDERAB LES [facility] * (ABNORMAL) GLUCOSE - POINT OF CARE (07/03/2020 8:27 AM PLASTIC SHEETS FINISHING SUPERVISOR) Pathologist [facility] Glucose WB/POC 119(H) 70 - 115 mg/dL 07/03/2020 8:31 AM PLASTIC SHEETS FINISHING SUPERVISOR [facility] Specimen Type Venous 07/03/2020 8:31 AM PLASTIC SHEETS FINISHING SUPERVISOR [facility] Blood BLOOD SPECIMEN / Unknown 07/03/2020 8:27 AM PLASTIC SHEETS FINISHING SUPERVISOR 07/03/2020 8:31 AM PLASTIC SHEETS FINISHING SUPERVISOR Jackelyn Licona MD LAB - POINT OF CARE ORDERABLES [facility] [address] [place] [address], [facility] [phone] documented in this encounter Visit Diagnoses Diagnosis 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) Other chronic nonalcoholic liver disease Metabolic syndrome Dysmetabolic Syndrome X Other specified diseases of esophagus Other diseases of stomach and duodenum Cirrhosis of liver without ascites, unspecified hepatic cirrhosis type (HCC) 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) Other chronic nonalcoholic liver disease Metabolic syndrome Dysmetabolic Syndrome X documented in this encounter Administered Medications Inactive Administered Medications - up to 3 most recent administrations Medication Order MAR Action Action Date Dose Rate Site 0.9% NaCl infusion at 20 mL/hr, Intravenous, CONTINUOUS, Starting on Kellen 07/03/20 at 1030, Until Kellen 07/03/20 at 1221, Pre-procedure (GI) 0.9% NaCl injection 3 mL 3 mL, Intracatheter, PRE-PROCEDURE MULTIPLE, Starting on Kellen 07/03/20 at 1023, Until Kellen 07/03/20 at 1221, For Saline Lock flushes if one is inserted for Bronchoscopy/Endoscopy procedure., Pre-procedure (GI) documented in this encounter Active and Recently Administered Medications Times are shown in PLASTIC SHEETS FINISHING SUPERVISOR. Scheduled Medication Order 07/01/2020 07/02/2020 07/03/2020 0.9% NaCl injection 3 mL 3 mL, Intracatheter, PRE-PROCEDURE MULTIPLE, Starting on Kellen 07/03/20 at 1023, Until Kellen 07/03/20 at 1221, For Saline Lock flushes if one is inserted for Bronchoscopy/Endoscopy procedure., Pre-procedure (GI) Continuous Medication Order 07/01/2020 07/02/2020 07/03/2020 0.9% NaCl infusion at 20 mL/hr, Intravenous, CONTINUOUS, Starting on Kellen 07/03/20 at 1030, Until Kellen 07/03/20 at 1221, Pre-procedure (GI) 1030 (Due) documented in this encounter Additional Health Concerns Infection Onset Date Last Indicated Resolved Time 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 Care Teams Alpine Guide Relationship Specialty Start Date End Date Briana Medeiros MD [address] [place] [address] PCP - General 02/15/18 02/22/22 documented as of this encounter
--- OUTSIDE RECORDS SUMMARY | 2024-05-24 23:35 | XMS_ITS | Encounter Summary ---
Author Organization [facility] Address [address] [place] [address] Care Team Providers Care Train Gateman Name Role Phone Briana Medeiros MD Primary Care Provider [phone] Encounter Details Date Type Department Care Team (Late Contact Info) Description 12/29/2020 Orders Only [facility] - [address] [facility] [place] [phone] Neva Oliver, RN Cirrhosis of liver without ascites, unspecified hepatic [...] (Late Contact Info) Description 07/09/2024 12:30 PM LABELLING MACHINE OPERATOR Office Visit [facility] - GI [address] [facility] [place] [address] Twin Miller MD [facility] [place] [address] 09/19/2024 2:00 PM CDT Office Visit [facility] - Orthopedic Surgery [address] [facility] [address] Larry Alexander MD [address] [facility] [address] [place] [address] documented as of this encounter Goals Goal [...] as of this encounter Visit Diagnoses Diagnosis Cirrhosis of liver without ascites, unspecified hepatic cirrhosis type (HCC)- Primary documented in this encounter Additional Health Concerns Infection Onset Date Last Indicated Resolved Time 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 Care Teams Train Gateman Relationship Specialty Start Date End Date Briana Medeiros MD [address] [place] [id number] PCP - General 02/15/18 02/22/22 documented as of this encounter
--- OUTSIDE RECORDS SUMMARY | 2024-05-24 23:35 | XMS_ITS | Encounter Summary ---
Author Organization [facility] Address [address] [facility] [place] [address] Care Team Providers Care Site Technician Name Role Phone Briana Medeiros MD Primary Care Provider [phone] Encounter Details Date Type Department Care Team (Late st Contact Info) Description 02/13/2020 Orders Only [facility] - GI [address] [place] [phone] Monty Gentile, RN 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) [...] st Contact Info) Description 07/09/2024 12:30 PM DIRECTOR OF RETAIL ANALYTICS Office Visit [facility] - GI [address] [facility], [place] [address] Twin Miller MD [facility] [place] [address] 09/19/2024 2:00 PM CDT Office Visit [facility] - Orthopedic Surgery [address] [facility] [place] [phone] Larry Alexander MD [address] [facility] [address] [place] [address] documented as of this encounter Goals Goal [...] Comments ALPHA FETOPROTEIN BLOOD TUMOR MARKER Routine 02/20/2020 1:23 PM CDT 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) PT-INR Routine 02/20/2020 1:23 PM CDT 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) CBC W AUTO DIFFERENTIAL Routine 02/20/2020 1:23 PM CDT 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) COMPREHENSIVE METABOLIC PANEL Routine 02/20/2020 1:23 PM CDT 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) documented in this encounter Results * PT-INR (02/20/2020 1:23 PM CDT) INR 1.0 [facility] Comment: Reference Range ? 0.9-1.1 Moderate-intensity Warfarin Therapy 2.0-3.0 Higher-intensity Warfarin Therapy ?? 3.0-4.0 PT 10.3 9.0 - 11.5 sec [facility] Comment: For more information on this test, go to: http://education.Youtuo/faq/VIM612 Test Performed at: [facility] [address] [place], [place] ??[phone] ROSS LOPEZ DO,MPH Blood BLOOD SPECIMEN / Unknown 02/20/2020 1:23 PM CDT 02/20/2020 1:24 PM CDT Jackelyn Licona MD LAB - COAGULATION OR DERABLES Performing Organization Address City/State/[facility] Co de Phone Number [facility] [address] [place] [address] * (ABNORMAL) COMPREHENSIVE METABOLIC PANEL (02/20/2020 1:23 PM CDT) Glucose 86 65 - 99 mg/dL [facility] Comment: ? Fasting reference interval BUN 27(H) 7 - 25 mg/dL [facility] Creatinine 1.36(H) 0.70 - 1.18 mg/dL [facility] Comment: For patients >49 years of age, the reference limit for Creatinine is approximately 13% higher for people identified as -Croatian. eGFR by MDRD 52(L) > OR = 60 mL/min/1. 73m2 [facility] eGFR by MDRD 60 > OR = 60 mL/min/1. 73m2 [facility] BUN/Creatinine Ratio 20 6 - 22 (calc) [facility] Sodium 138 135 - 146 mmol/L [facility] Potassium 4.1 3.5 - 5.3 mmol/L [facility] Chloride 101 98 - 110 mmol/L [facility] CO2 25 20 - 32 mmol/L [facility] Calcium 9.6 8.6 - 10.3 mg/dL [facility] Protein Total 6.6 6.1 - 8.1 g/dL [facility] Albumin 3.7 3.6 - 5.1 g/dL [facility] Globulin Total 2.9 1.9 - 3.7 g/dL (calc) [facility] Albumin/Globulin Ratio 1.3 1.0 - 2.5 (calc) [facility] Bilirubin Total 0.8 0.2 - 1.2 mg/dL [facility] Alkaline Phosphatase 134 35 - 144 U/L [facility] AST 15 10 - 35 U/L [facility] ALT 17 9 - 46 U/L [facility] Comment: Test Performed at: [facility] [address] [place], [place] ??[phone] ROSS LOPEZ DO,MPH Blood BLOOD SPECIMEN / Unknown 02/20/2020 1:23 PM CDT 02/20/2020 1:24 PM CDT Jackelyn Licona MD LAB - CHEMISTRY ORDE RAISA [facility] [address] [place] [address] * (ABNORMAL) CBC WITH DIFFERENTIAL (02/20/2020 1:23 PM CDT) White Blood Cell Count 8.8 3.8 - 10.8 Thousand/u L [facility] RBC 4.48 4.20 - 5.80 Million/uL [facility] Hemoglobin 13.0(L) 13.2 - 17.1 g/dL [facility] Hematocrit 40.0 38.5 - 50.0 % [facility] MCV 89.3 80.0 - 100.0 fL [facility] MCH 29.0 27.0 - 33.0 pg [facility] MCHC 32.5 32.0 - 36.0 g/dL [facility] RDW 14.0 11.0 - 15.0 % [facility] Platelet Count 144 140 - 400 Thousand/u L [facility] MPV 12.5 7.5 - 12.5 fL [facility] Neutrophil Absolute 6538 1500 - 7800 cells/uL [facility] Lymphocytes Absolute 669(L) 850 - 3900 cells/uL [facility] Absolute Monocytes 889 200 - 950 cells/uL [facility] Eosinophils Absolute 642(H) 15 - 500 cells/uL [facility] Basophils Absolute 62 0 - 200 cells/uL [facility] Granulocytes % 74.3 % [facility] Lymphocytes % 7.6 % [facility] Monocytes % 10.1 % [facility] Eosinophils % 7.3 % [facility] Basophils % 0.7 % [facility] Comment: Test Performed at: [facility] [address] [place], [place] ??[phone] ROSS LOPEZ DO,MPH Blood BLOOD SPECIMEN / Unknown 02/20/2020 1:23 PM CDT 02/20/2020 1:24 PM CDT Jackelyn Licona MD LAB - HEMATOLOGY ORD ERABLES Performing Organization Address [facility] Co de Phone Number [facility] [phone] [place] [address] * ALPHA FETOPROTEIN BLOOD TUMOR MARKER (02/20/2020 1:23 PM CDT) Alpha-Fetoprotei n Tumor Marker 1.2 <6.1 ng/mL [facility] Comment: This test was performed using the Flex [place] chemiluminescent method. Values obtained from different assay methods cannot be used interchangeably. AFP levels, regardless of value, should not be interpreted as absolute evidence of the presence or absence of disease. Test Performed at: [facility] [id number] [place] [address] ??[phone] ROSS LOPEZ DO,MPH Blood BLOOD SPECIMEN / Unknown 02/20/2020 1:23 PM CDT 02/20/2020 1:24 PM CDT Jackelyn Licona MD LAB - CHEMISTRY ORDMarj KLINE Performing Organization Address [facility] Co de Phone Number [facility] [address] [place] [address] documented in this encounter Visit Diagnoses Diagnosis 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)- Primary Other chronic nonalcoholic liver disease documented in this encounter Additional Health Concerns Infection Onset Date Last Indicated Resolved Time 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 Care Teams Site Technician Relationship Specialty Start Date End Date Briana Medeiros MD [address] [place] [id number] PCP - General 02/15/18 02/22/22 documented as of this encounter
--- OUTSIDE RECORDS SUMMARY | 2024-05-24 23:35 | XMS_ITS | Encounter Summary ---
Author Organization [facility] Address [address] [facility] [place] [address] Care Team Providers Care Miner Name Role Phone Briana Medeiros MD Primary Care Provider [phone] Reason for Visit * Reason Comments Infectious Disease Wound Care Encounter Details Date Type Department Care Team (Latest Contact Info) Description 10/21/2020 9:53 AM CDT - 10/21/2020 11:59 PM CDT Hospital Encounter Wound Care at [facility] [address] [place] [id number] Raysa Nevarez MD [address] [id number] Discharge Disposition: Home or Self Care Social [...] Sign Reading Time Taken Comments Blood Pressure 138/75 10/21/2020 10:00 AM CDT Pulse 68 10/21/2020 10:00 AM CDT Temperature - - Respiratory Rate 20 10/21/2020 10:00 AM CDT Oxygen Saturation - - Inhaled [...] cause drowsiness. bumetanide (BUMEX) 0.5 MG tablet Take 1 [...] (one) capsule by mouth 2 times daily nystatin (MYCOSTATIN) 950971 UNIT/GM powder Apply to affected area 2 [...] as needed. 10/12/2023 vitamin D, ergocalciferol, (DRISDOL) 29442 UNITS capsuleIndications:Othe r cirrhosis of liver (HCC) Take 50,000 Units by mouth every 7 days 0 02/02/2018 03/21/2023 documented as of this encounter Progress Notes * Ibeth Ceballos, RN - 10/21/2020 11:04 AM CDT Patient presents to Wound Center for new visit to consult with Dr. NEVAREZ. Initial nursing assessment done, new wound assessed, measured and photographed, screenings completed on Nutrition, Safety, Abuse, Home Function, Advance Directive, Fall Assessment, Rex Scale, and pain. Initial care plan and education assessment completed. Home care: na Supplies: na * Raysa Nevarez MD - 10/21/2020 10:06 AM CDT Infectious Disease Progress Note Admit Date: 10/21/2020 9:53 AM Consult date: 10/21/2020 69 year oldmale Clinical Course Patient seen in the Wound Care Center Continues to pick his skin Right hip incision clean no drainage Data Vitals: 10/21/20 1000 BP: 138/75 Pulse: 68 Resp: 20 No data recorded. Exam General appearance: alert, cooperative, no distress Lungs: breath sounds normal and symmetric; no rales or wheezes Heart: regular rhythm, normal S1 and S2, without murmurs, gallops or rubs Abdomen: soft without mass, non-tender, with normal bowel sounds Extremities: Right hip area incision clean no drainage some deformity Skin with several scabbed lesions on the buttock area Medications Recent Labs Component Name 09/05/20132408/20/20 0000 02/20/20 13208/20/19 1527 WBC 10.3 8.1 8.8 10.1 HGB 15.3 14.2 13.0* 12.0* HCT 47.4 43 40.0 37.4* PLTCOUNT 113* - 144 163 Recent Labs Component Name 09/05/20132408/20/20 0000 02/20/20 1323 08/27/19 1006 SODIUM 140 140 138 141 POTASSIUM 4.2 3.7 4.1 4.4 CHLORIDE 103 103 101 102 CO2 28 27 25 29 BUN 27* 27* 27* 35* CREATININE 1.46* - 1.36* 1.36* GLUCOSE 109* 118* 86 91 CALCIUM 9.9 9.6 9.6 9.5 Recent Labs Component Name 09/05/205 08/20/20 0000 02/20/20 1323 08/20/19 1527 ALBUMIN 3.9 - 3.7 3.5* ALKPHOS 126 113 134 178* ALT 24 19 17 62* AST 20 14 15 25 TBIL 0.8 0.8 0.8 0.5 TPROT 7.1 6.5 6.6 6.2 No results for input(s): CK in the last 72366 hours. Recent Labs Component Name 04/24/19 1141 SEDRATE 70* Recent Labs Component Name 04/24/19 1140 08/15/17 0348 08/09/17 0745 CRP 1.41* 4.1* 32.0* No results for input(s): CDIFFTOXINAB in the last 45429 hours. 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 Errors may havebeen missed upon review. Raysa Nevarez MD documented in this encounter Plan of Treatment Upcoming Encounters Date Type Department Care Team (Late st Contact Info) Description 07/09/2024 12:30 PM WORK ORDER SORTING CLERK Office Visit [facility] - GI [address] [place] [address], [place] [address] Twin Miller MD [address] [place] [address] [place] [address] 09/19/2024 2:00 PM CDT Office Visit [facility] - Orthopedic Surgery [facility] [place] [address] Larry Alexander MD [address] [facility] [address] [place] [address] documented as of this encounter Goals Goal [...] documented as of this encounter Care Teams Miner Relationship Specialty Start Date End Date Briana Medeiros MD [address] [place] [address] PCP - General 02/15/18 02/22/22 documented as of this encounter
--- OUTSIDE RECORDS SUMMARY | 2024-05-24 23:35 | XMS_ITS | Encounter Summary ---
Author Organization [facility] Address [address] [place] [address] Care Team Providers Care Reptile Keeper Name Role Phone Briana Medeiros MD Primary Care Provider [phone] Reason for Visit * Reason Comments Follow-up Encounter Details Date Type Department Care Team (Late st Contact Info) Description 08/05/2020 10:00 AM CLINICAL TRAINING SPECIALIST Office Visit [facility] - Orthopedics 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 He had a recent spine fracture and has been treated non operatively and complains of backpain and pain radiating down the lateral aspect of his thigh but denies any groin pain. He states his hip feels stiff but otherwise had been had any significant change. He has not had to put any dressings on the right hip since last September. He denies fevers chills or malaise. He has been gaining some weight and feels better overall. Current Outpatient Medications on File Prior to Visit Medication Sig Dispense Refill ??? acetaminophen (TYLENOL) 325 MG tablet Take 650 mg by mouth every 4 hours as needed ??? albuterol (PROVENTIL;VENTOLIN) (5 MG/ML) 0.5% nebulizer solution 2.5 mg. (Patient taking differently: Inhale 2.5 mg by mouth 4 times daily ) 1 Box 11 ??? apixaban (ELIQUIS) 5 MG tablet Take 5 mg by mouth 2 times daily ??? aspirin EC (ECOTRIN) 81 MG tablet Take 81 mg by mouth once daily ??? baclofen (LIORESAL) 10 MG tablet Take 10 mg by mouth once daily 0 ??? benzonatate (TESSALON) 200 MG capsule Take [...] 100 mg by mouth once daily ??? DULoxetine (CYMBALTA) 30 MG capsule Take 30 mg by mouth once daily Reasons: Musculoskeletal Pain ??? ferrous sulfate 325 (65 FE) MG tablet Take 325 mg by mouth 2 times daily with morning and evening meal ??? metoprolol succinate XL 24hr (TOPROL XL) 50 MG tablet Take 50 mg by mouth once daily ??? nystatin (NYSTOP) 415758 UNIT/GM powder Apply to affected area 2 [...] PUFFS BY MOUTH TWICE A DAY 6 ??? tamsulosin (FLOMAX) 0.4 MG capsule Take 0.4 mg by mouth at bedtime 1 ??? tiotropium (SPIRIVA RESPIMAT) 2.5 MCG/ACT inhaler Inhale 2 puffs by mouth once daily ??? triamcinolone acetonide (KENALOG) 0.1 % cream Apply to affected area 3 times daily Apply to rash daily as needed. ??? vitamin D, ergocalciferol, (DRISDOL) 29994 UNITS capsule Take 50,000 Units by mouth every 7 days 0 No current facility-administered medications on file prior to visit. Past Medical History: Diagnosis Date ??? Actinic [...] ??? S/P PICC central line placement 02/13/2019 H VAT R basilic ??? Seizures ??? Squamous [...] REPLACEMENT ??? HX JOINT REPLACEMENT right hip 2006, left hip 2009 ??? INCISION AND DRAINAGE Right 02/04/2019 Right; IRRIGATION AND DEBRIDEMENT WOUND HIP ??? INCISION AND DRAINAGE Right 05/02/2019 Right; IRRIGATION AND DEBRIDEMENT RIGHT HIP ABSCESS ??? Tracheostomy N/A 09/13/2017 N/A; TRACHEOSTOMY Social History Occupational History ??? Not on file Tobacco Use ??? Smoking status: Former Smoker Quit date: 06/06/1981 Years since quittin.1 ??? Smokeless tobacco: Never Used Substance and Sexual Activity ??? Alcohol use: No ??? Drug use: No ??? Sexual activity: Not on file Family History Problem Relation Name Age of Onset ??? CAD (Coronary Artery Disease) Mother age 65 ??? Cirrhosis Father ??? Cancer - Breast Neg Hx ??? CVA Neg Hx ??? Hemophilia Neg Hx ??? Cancer - Other Neg Hx ??? Eczema Neg Hx ??? Psoriasis Neg Hx ??? Cancer - Skin, Non Melanoma Neg Hx ??? Cancer - Skin, Melanoma Neg Hx Review of Systems Constitutional: Negative for chills, fever, malaise/fatigue and weight loss. Respiratory: Negative for shortness of breath. Cardiovascular: Negative for claudication and leg swelling. Musculoskeletal: Positive for back pain, falls and joint pain. Skin: Negative for itching and rash. Neurological: Negative for focal weakness. All other systems reviewed and are negative. Physical exam: Patient is awake and alert Facial expressions are appropriate with a mask in place BMI is 34.2 Examination of the right hip reveals flexion to 90, abduction 20, adduction 10, internal rotation of 10, external rotation of 20 with no significant pain. He has a negative [facility] straight leg raise test. Wound is healed without signs of infection and there are no draining areas. There is no erythema or induration. 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 We will see himback every couple of years for repeat x-rays or sooner with any more problems. We discussed continuing with physical therapy exercises. He is in therapy at this time. Patient and his understood the treatment plan and all questions were answered ICAL TRAINING SPECIALIST documented in this encounter Plan of Treatment Upcoming Encounters Date Type Department Care Team (Late st Contact Info) Description 07/09/2024 12:30 PM CLINICAL TRAINING SPECIALIST Office Visit [facility] - GI [address] [place] [address], [place] [address] Twin Miller MD [address] [place] [address] [place] [address] 09/19/2024 2:00 PM CDT Office Visit [facility] - [facility] [place] [address] Larry Alexander MD [address] [place] [address] documented as of this encounter Goals Goal [...] as of this encounter Visit Diagnoses Diagnosis 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
--- OUTSIDE RECORDS SUMMARY | 2024-05-24 23:35 | XMS_ITS | Encounter Summary ---
Author Organization [facility] Address [address] [facility] [place] [address] Care Team Providers Care Photograph Developer Name Role Phone Briana Medeiros MD Primary Care Provider [phone] Encounter Details Date Type Department Care Team (Latest Contact Info) Description 08/05/2020 9:39 AM [facility] Hospital Encounter [facility] DIAGNOSTIC RAD [facility] [address] [facility] [place] [address] Larry Alexander MD [address] [facility] 280 [place] [address] Discharge Disposition: Home or Self Care Social [...] ORAL ROUTE DAILY 11/28/2019 10/21/2020 nystatin (MYCOSTATIN) 702625 UNIT/GM powder Apply to affected area 2 [...] as needed. 10/12/2023 vitamin D, ergocalciferol, (DRISDOL) 66696 UNITS capsuleIndications:Othe r cirrhosis of liver (HCC) Take 50,000 Units by mouth every 7 days 0 02/02/2018 03/21/2023 documented as of this encounter Plan of Treatment Upcoming Encounters Date Type Department Care Team (Late st Contact Info) Description 07/09/2024 12:30 PM RN DELIVERY [place] [facility] [place] [address] [place] [address], [place] [phone] Twni Miller MD [address] [place] [address] [place] [address] 09/19/2024 2:00 PM CDT Office Visit [facility] - Orthopedic Surgery [address] [place] [address] Larry Alexander MD [address] [facility] 280 [place] [address] documented as of this encounter Goals Goal [...] Name Priority Date/Time Associated Diagnosis Comments XR HIP RIGHT 2VW OR MORE Routine 08/05/2020 9:55 AM RN DELIVERY Arthralgia of hip, unspecified laterality documented in this encounter Results * XR HIP RIGHT 2VW OR MORE (08/05/2020 9:55 AM RN DELIVERY) Anatomical Region Laterality Modality Pelvis, Lower Extremity [facility] 08/05/2020 10:0 3 AM RN DELIVERY Impressions 08/05/2020 10:07 AM RN DELIVERY IMPRESSION: 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 This report was electronically signed by SILAS NGUYỄN MD ??on 08/05/2020 10:07 AM . Narrative 08/05/2020 10:07 AM RN DELIVERY Exam: 1. XR PELVIS 1 view 2. [...] documented as of this encounter Care Teams Photograph Developer Relationship Specialty Start Date End Date Briana Medeiros MD [address] [place], [place] [phone] PCP - General 02/15/18 02/22/22 documented as of this encounter
--- OUTSIDE RECORDS SUMMARY | 2024-05-24 23:35 | XMS_ITS | Encounter Summary ---
Author Organization [facility] Address [address] [facility] [place] [address] Care Team Providers Care Surety Bond Agent Name Role Phone Briana Medeiros MD Primary Care Provider [phone] Encounter Details Date Type Department Care Team (Latest Contact Info) Description 03/19/2020 Travel Social History Tobacco Use Types Packs/Day [...] st Contact Info) Description 07/09/2024 12:30 PM GEAR LAPPING MACHINE OPERATOR Office Visit [facility] - GI [address] [facility], [place] [address] Twin Miller MD [address] [facility] [address] [facility] [place] [address] 09/19/2024 2:00 PM CDT Office Visit [facility] - Orthopedic Surgery [address] [facility] [place] [phone] Larry Alexander MD [address] [facility] 280 [place] [address] documented as of this encounter Goals Goal [...] documented as of this encounter Care Teams Surety Bond Agent Relationship Specialty Start Date End Date Briana Medeiros MD [address] [place] [address] PCP - General 02/15/18 02/22/22 documented as of this encounter
--- OUTSIDE RECORDS SUMMARY | 2024-05-24 23:35 | XMS_ITS | Encounter Summary ---
Author Organization [facility] Address [address] [place] [address] Care Team Providers Care Baby Stroller Rental Clerk Name Role Phone Briana Medeiros MD Primary Care Provider Encounter Details Date Type Department Care Team (Late st Contact Info) Description 09/01/2020 Orders Only [facility] - COVID [facility] [address] [place] [address] Mikael Jaramillo MD [address] [facility] [address] [place] [address] Need for vaccination Social History Tobacco Use Types Packs/Day Years [...] st Contact Info) Description 07/09/2024 12:30 PM HEAD LIBRARIAN Office Visit [facility] - GI [address] [facility], [place] [address] Twin Miller MD [address] [facility] [address] [place] [address] 09/19/2024 2:00 PM CDT Office Visit [facility] - Orthopedic Surgery [address] [place] [address] Larry Alexander MD [address] [facility] 280 [place] [address] documented as of this encounter Goals Goal [...] as of this encounter Visit Diagnoses Diagnosis Need for vaccination Need for prophylactic vaccination and inoculation against unspecified single disease documented in this encounter Additional Health Concerns Infection Onset Date Last Indicated Resolved Time 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
--- OUTSIDE RECORDS SUMMARY | 2024-05-24 23:35 | XMS_ITS | Encounter Summary ---
Author Organization [facility] Address [address] [place] [address] Care Team Providers Care Media Assistant Name Role Phone Briana Medeiros MD Primary Care Provider [phone] Reason for Visit * Reason Onset Date Comments Pre-op Instructions 06/25/2020 Encounter Details Date Type Department Care Team (Late st Contact Info) Description 06/25/2020 Patient Outreach [facility] [address] [place] [phone] Guadalupe Rick, RN Pre-op Instructions Social History Tobacco Use Types Packs/Day Years [...] encounter Miscellaneous Notes * Telephone Encounter - Guadalupe Rick, DONTAE - 06/25/2020 2:09 PM BOILER FIREMAN Pt confirmed procedure and expressed understanding of all instructions. Pt has a coach tour driver, will arrive 1 hour prior to procedure, and will not take anticoagulants for 48 hours prior to procedure. Pt provided number to department for questions or concerns. ER FIREMAN documented in this encounter Plan of Treatment Upcoming Encounters Date Type Department Care Team (Late st Contact Info) Description 07/09/2024 12:30 PM BOILER FIREMAN Office Visit [facility] - GI [address] [place] [address], [place] [address] Twin Miller MD [address] [place] [address] [place] [address] 09/19/2024 2:00 PM CDT Office Visit [facility] - Orthopedic Surgery [address] [facility] [place] [address] Larry Alexander MD [address] [facility] 280 [place] [address] documented as of this encounter Goals Goal [...] documented as of this encounter Care Teams Media Assistant Relationship Specialty Start Date End Date Briana Medeiros MD [address] [place], [place] [phone] PCP - General 02/15/18 02/22/22 documented as of this encounter
--- OUTSIDE RECORDS SUMMARY | 2024-05-24 23:35 | XMS_ITS | Encounter Summary ---
Author Organization [facility] Address [address] [facility] [place] [address] Care Team Providers Care Manager Of Drilling Name Role Phone Briana Medeiros MD Primary Care Provider [phone] Reason for Referral * Radiology Services (Routine) - Closed Specialty Diagnoses / Procedures Referred By Contac t Referred To Contact Ultrasound Diagnoses 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) Nonalcoholic steatohepatitis (RAYGOZA) Lower extremity edema Procedures US ABDOMEN LIMITED Jackelyn Licona MD [address] [place] [address] [address] [place] [address] Referral ID Status Reason Start Date Expiration Date Visits Re quested Visits Authorized [id number] Closed 03/09/2021 03/09/2022 1 1 Reason for Visit * Radiology Services (Routine) - Closed Specialty Diagnoses / Procedures Referred By Contac t Referred To Contact Ultrasound Diagnoses 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) Nonalcoholic steatohepatitis (RAYGOZA) Lower extremity edema Procedures US ABDOMEN LIMITED Jackelyn Licona MD [address] [place] [address] [facility] [address] [place] [address] Referral ID Status Reason Start Date Expiration Date Visits Re quested Visits Authorized [id number] Closed 03/09/2021 03/09/2022 1 1 Encounter Details Date Type Department Care Team (Late st Contact Info) Description 03/19/2021 12:12 PM CDT - 03/19/2021 11:59 PM CDT Hospital Encounter [id number] [place] [address] Jackelyn Licona MD [address] [place] [address] Discharge Disposition: Home or Self Care Social [...] have Coronavirus / COVID-19? No / Unsure 03/19/2021 12:10 PM CDT documented as of this encounter [...] capsule by mouth 2 times daily 10/12/2023 nystatin (MYCOSTATIN) 179862 UNIT/GM powder Apply to affected area 2 [...] of the Body, eyes 10/12/2023 Spacer/Aero-Holding Chambers ([facility]) MISC as directed 11/17/2020 10/12/2023 spironolactone (ALDACTONE) 50 MG tablet Take 1 (one) tablet by mouth once daily 30 tablet 5 12/30/2020 02/23/2022 SYMBICORT 160-4.5 MCG/ACT inhalerIndications:Oth er cirrhosis of liver (HCC) INHALE 2 PUFFS [...] as needed. 10/12/2023 vitamin D, ergocalciferol, (DRISDOL) 60185 UNITS capsuleIndications:Oth er cirrhosis of liver (HCC) Take 50,000 Units by mouth every 7 days 0 02/02/2018 03/21/2023 documented as of this encounter Plan of Treatment Upcoming Encounters Date Type Department Care Team (Late st Contact Info) Description 07/09/2024 12:30 PM RELISH MAKER Office Visit [facility] - GI [address] [place] [address], [place] [address] Twin Miller MD [address] [place] [address] [place] [address] 09/19/2024 2:00 PM CDT Office Visit [facility] - Orthopedic Surgery [facility] [place] [address] Larry Alexander MD [address] [place] [address] [address] [place] [address] documented as of this encounter Goals Goal [...] Associated Diagnosis Comments US ABDOMEN LIMITED Routine 03/19/2021 1: 34 PM CDT 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) Nonalcoholic steatohepatitis (RAYGOZA) Lower extremity edema documented in this encounter Results * US ABDOMEN LIMITED (03/19/2021 1:34 PM CDT) Anatomical Region Laterality Modality Abdomen Ultrasound 03/19/2021 1:24 PM CDT Impressions 03/19/2021 2:59 PM CDT IMPRESSION: 1. Hepatic steatosis without focal liver mass. 2. No evidence of cholelithiasis or acute cholecystitis. Dictated by Jens Mendoza MD (resident services director). This report was approved ??by Jens Mendoza ?? on 03/19/2021 2:30 PM . I, Dr. AMBREEN GALVEZ have personally reviewed and interpreted this examination/study. This report was electronically signed by AMBREEN GALVEZ ??on 03/19/2021 2:59 PM . Narrative 03/19/2021 2:59 PM CDT EXAM: Limited abdominal ultrasound HISTORY: K75.81: 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 K74.60: 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 K75.81: Nonalcoholic steatohepatitis (RAYGOZA) R60.0: Lower extremity edema COMPARISON: Limited abdominal ultrasound 09/19/2020 FINDINGS: The liver is increased in echogenicity, consistent with diffuse hepatic steatosis. There is smooth liver surface contour. No discrete hepatic mass or intrahepatic biliary dilatation is seen. Color Doppler evaluation demonstrates patency of the hepatic and portal veins. No gallstones or pericholecystic fluid is seen. Sonographic Maria's sign is negative. The common bile duct is nondilated, measuring 3 mm. The right kidney measures 10.2 x 5 x 3.7 cm. Limited views reveal no evidence of hydronephrosis. The visible pancreas shows normal echogenicity. The spleen measures 12.5 cm in length. No ascites is present. Procedure Note Ambreen Galvez MD - 03/19/2021 EXAM: Limited abdominal ultrasound HISTORY: K75.81: 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 K74.60: 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 K75.81: Nonalcoholic steatohepatitis (RAYGOZA) R60.0: Lower extremity edema COMPARISON: Limited abdominal ultrasound 09/19/2020 FINDINGS: The liver is increased in echogenicity, consistent with diffuse hepatic steatosis. There is smooth liver surface contour. No discrete hepaticmass or intrahepatic biliary dilatation is seen. Color Doppler evaluation demonstrates patency of the hepatic and portal veins. No gallstones or pericholecystic fluid is seen. Sonographic Maria'ssign is negative. The common bile duct is nondilated, measuring 3 mm. The right kidney measures 10.2 x 5 x 3.7 cm. Limited views reveal no evidence of hydronephrosis. The visible pancreas shows normal echogenicity. The spleen measures 12.5 cm in length. No ascites is present. IMPRESSION: 1. Hepatic steatosis without focal liver mass. 2. No evidence of cholelithiasis or acute cholecystitis. Dictated by Jens Mendoza MD (resident services director). This report was approved by Jens Mendoza on 03/19/2021 2:30 PM . I, Dr. AMBREEN GALVEZ have personally reviewed and interpreted this examination/study. This report was electronically signed by AMBREEN GALVEZ on 12:59 PM . Jackelyn Licona MD ORDERABLES documented [...] documented as of this encounter Care Teams Manager Of Drilling Relationship Specialty Start Date End Date Briana Medeiros MD [address] [place] [address] PCP - General 02/15/18 02/22/22 documented as of this encounter
--- OUTSIDE RECORDS SUMMARY | 2024-05-24 23:35 | XMS_ITS | Encounter Summary ---
Author Organization [facility] Address [address] [place] [address] Care Team Providers Care Salesperson Jewelry Name Role Phone Briana Medeiros MD Primary Care Provider [phone] Reason for Visit * Reason Comments Medication Management Encounter Details Date Type Department Care Team (Late st Contact Info) Description 07/24/2020 Telephone [facility] - [address] [place] [address] Johnna Carranza, piggery worker Management Social History Tobacco Use Types Packs/Day Years [...] as of this encounter Progress Notes * Johnna Carranza RN - 07/24/2020 9:18 AM CST Mehnaz from Dr. Mau Deng office ( PCP )called inquiring if patient is okay to take Cymbalta 30 mg daily for chronic back pain. Please contact their office at [phone] F PHYSICAL THERAPIST documented in this encounter Miscellaneous Notes * Telephone Encounter - Monty Gentile RN - 07/24/2020 9:41 AM CST OFFICE CALLED, OK TO TAKE CYMBALTA F PHYSICAL THERAPIST documented in this encounter Plan of Treatment Upcoming Encounters Date Type Department Care Team (Late st Contact Info) Description 07/09/2024 12:30 PM STAFF PHYSICAL THERAPIST Office Visit [facility] - GI [address] [place] [address], [place] [address] Twin Miller MD [address] [place] [address] [place] [address] 09/19/2024 2:00 PM CDT Office Visit [facility] - Orthopedic Surgery [address] [place] [phone] Larry Alexander MD [address] [address] documented as of this encounter Goals Goal [...] documented as of this encounter Care Teams Salesperson Jewelry Relationship Specialty Start Date End Date Briana Medeiros MD [address] [place] [address] PCP - General 02/15/18 02/22/22 documented as of this encounter
--- OUTSIDE RECORDS SUMMARY | 2024-05-24 23:35 | XMS_ITS | Encounter Summary ---
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) Nonalcoholic steatohepatitis (RAYGOZA) Lower extremity edema Procedures US ABDOMEN LIMITED Jackelyn Licona MD [address] [place] [address] [facility] [address] [place] [address] Referral ID Status Reason Start Date Expiration Date Visits Re quested Visits Authorized [id number] Closed 03/09/2021 03/09/2022 1 1 Reason for Visit * Reason Comments Follow-up Encounter Details Date Type Department Care Team (Late st Contact Info) Description 12/30/2020 1:00 PM CDT Office Visit [facility] - [address] [facility] [place] [address] Jackelyn Licona MD [address] [place] [address] Nonalcoholic steatohepatitis (RAYGOZA) (Primary Dx); 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); Lower extremity edema; Cirrhosis of liver without ascites, unspecified hepatic cirrhosis type (HCC); Metabolic syndrome; Atrial fibrillation, unspecified type (HCC) Social History [...] Sign Reading Time Taken Comments Blood Pressure 132/68 12/30/2020 1:04 PM CDT Pulse 91 12/30/2020 1:04 PM CDT Temperature 36.7 ??C (98 ??F) 12/30/2020 1:04 PM CDT Respiratory Rate - - Oxygen Saturation 99% 12/30/2020 1:04 PM CDT Inhaled Oxygen Concentration - - Weight 114.8 kg (253 lb) 12/30/2020 1:04 PM CDT Height - - Body Mass Index 35.29 07/03/2020 8:15 AM INSTRUMENT SPECIALIST documented in this encounter Functional Status Functional [...] Progress Notes * Jackelyn Licona MD - 12/30/2020 1:13 PM CDT [facility] Jackelyn Licona MD Referring Provider: Provider Unknown PCP: Briana Medeiros MD Interval history and subjective concerns: I had the pleasure of meeting Mason Keys at the [facility] on 12/30/2020. This is a 70 year old male [...] it was related to duloxetine. Interval events: Doing better since last visit. Reports that the confusion that he experienced at his last visit resolved shortly after discontinuation of cymbalta. No further episodes of confusion since that time. Denies any episodes of GI bleeding or worsening abdominal distention. His does note that he has increased lower extremity edema. His Lasix was discontinued and now he is on Bumex 0.5 mg twice daily without any significant improvement in edema. No other complaints at this time. Alcohol: Does not drink alcohol. Tobacco: He did smoke from 0930-5925. Chronic medical problems: Afib on eliquis CAD, [...] Exam: Wt Readings from Last 3 Encounters: 12/30/20 114.8 kg (253 lb) 08/26/20 114.9 kg (253 lb 6.4 oz) 07/03/20 111.1 kg (245 lb) BP 132/68 Pulse 91 Temp 98 ??F (36.7 ??C) Wt 114.8 kg (253 lb) SpO2 99% BMI 35.29 kg/m2 General appearance: normal, alert, no distress, [...] asterixis Relevant Laboratories: Recent Labs Component Name 09/05/20 1325 08/20/20 0000 02/20/20 1323 08/27/19 1006 08/20/19 1527 05/06/19 0231 05/05/19 0215 05/05/19 0215 05/04/19 0307 05/04/19 0307 02/03/19 0106 09/19/17 0243 09/18/17 0003 09/18/17 0003 09/17/17 0433 09/17/17 0433 09/07/17 0428 09/06/17 1621 09/06/17 1211 09/06/17 1157 09/04/17 0447 09/04/17 0447 09/03/17 0431 09/03/17 0431 07/29/17 1336 07/29/17 1130 BUN 27* 27* 27* 35* - 22 - - - - - - - - - CREATININE 1.46* - 1.36* 1.36* - 1.15 - 0.96 - 1.12 - 0.6 - 0.6 - 0.6 - - - 0.7 - 0.6 - 0.6 - - NA - - - - - - - - - - - 138 - 140 - 139 - - - 143 - 141 - 140 - - POTASSIUM 4.2 3.7 4.1 4.4 - 3.2* - 3.1* - 3.2* - [...] - 107 - 107 - - CO2 28 27 25 29 - 26 - 25 - 27 - 34* - 35* - 32* - - - 20* - 27 - 27 - - CALCIUM 9.9 9.6 9.6 9.5 - 9.2 - 9.1 - 9.1 - 9.1 - 9.0 - 8.8 - - - 8.5 - 8.4 - 8.6 - - PROT - - - - - - - - - - - - - - - - - - - 6.2 - 5.3* - 5.4* - - ALB - 3.7 - - - - - - - - - - - - - - - - - 1.8* - 1.5* - 1.5* - - TBILI - - - - - - - - - - - - - - - - - - - 0.3 - 0.3 - 0.3 - - ALKPHOS 126 113 134 - - - - - - - - - - - - - - - - 204* - 190* - 212* - - ALT 24 19 17 - - - - - - - - - - - - - - - - 10 - 12 - 12 - - AST 20 14 15 - - - - - - - - - - - - - - - - 21 - 27 - 26 - - ANIONGAP - - - - - 11 - [...] - 0.4* - 0.4* - - EGFR 48* 54* 52* 52* - >60 - >60 - >60 - >60 - >60 - >60 - - - >60 - >60 - & gt;60 - - EGFRAFR 55* - 60 61 - >60 - >60 - >60 - - - - - - - - - - - - - - - - - = values in this interval not displayed. Recent Labs Component Name 09/05/20 1325 08/20/20 0000 02/20/20 1323 08/20/19 1527 08/20/19 1527 WBC 10.3 8.1 8.8 - 10.1 HGB 15.3 14.2 13.0* - 12.0* HCT 47.4 43 40.0 - 37.4* PLTCOUNT 113* - 144 - 163 - = values in this interval not displayed. Recent Labs Component Name 09/05/20 1325 02/20/20 1323 08/20/19 1527 INR 1.1 1.0 1.0 MELD-Na score: 11 at 09/05/2020 1:25 PM MELD score: 11 at 09/05/2020 1:25 PM Calculated from: Serum Creatinine: 1.46 mg/dL at 09/05/2020 1:25 PM Serum Sodium: 140 mmol/L (Using max of 137 mmol/L) at 09/05/2020 1:25 PM Total Bilirubin: 0.8 mg/dL (Using min of 1 mg/dL) at 09/05/2020 1:25 PM INR(ratio): 1.1 at 09/05/2020 1:25 PM Age: 69 years Chronic liver disease workup: Component Latest [...] % 16 - 50 % 5 (L) [id number] 90 - 200 mg/dL 223 (H) Phenotype [...] Cirrhotic liver morphology without discrete hepatic lesion. Liver biopsy/Fibroscan: -Fibroscan 08/26/20: techinically difficult study; unable to get valid reading Assessment: 1. Compensated RAYGOZA cirrhosis -Transplant is not a consideration at this time due to low MELD, advanced age, and multiple comorbidities. 2. Metabolic syndrome 3. A fib on eliquis 4. 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 MELD labs next week and prior to next visit 2. Repeat imaging for HCC in March with US 3. Repeat EGD in 2-3 years if clinically indicated. 4. Counseled regarding low sodium diet. 5. I have also recommended a high protein diet. 6. Given worsening LE edema, plan to start spironolactone 50mg daily. Labs in 1 week to ensure electrolytes and creatinine were stable. I have asked him to return for a follow up visit in 6 months with MELD labs and AFP prior to that visit. Jackelyn Licona MD [facility] Division of Gastroenterology and Hepatology No orders [...] by mouth once daily ??? nystatin (NYSTOP) 293354 UNIT/GM powder Apply to affected area 2 [...] as needed. ??? vitamin D, ergocalciferol, (DRISDOL) 19877 UNITS capsule Take 50,000 Units by mouth every 7 days No current facility-administered medications for this visit. documented in this encounter Plan of Treatment Upcoming Encounters Date Type Department Care Team (Late st Contact Info) Description 07/09/2024 12:30 PM INSTRUMENT SPECIALIST Office Visit [facility] - GI [address] [place] [address], [facility] [address] Twin Miller MD [address] [place] [address] [place] [address] 09/19/2024 2:00 PM CDT Office Visit [facility] - Orthopedic Surgery [address] [place] [address] Larry Alexander MD [address] [facility] [address] [place] [address] Scheduled Orders Name Type Priority Associated Diagnoses Orde r Schedule CBC W/O DIFFERENTIAL Lab Routine 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) Lower extremity edema Ordered: 12/30/2020 CBC W/O DIFFERENTIAL Lab Routine 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) Nonalcoholic steatohepatitis (RAYGOZA) Lower extremity edema Expected: 06/08/2021, Expires: 01/30/2022 COMPREHENSIVE METABOLIC PANEL Lab Routine 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) Nonalcoholic steatohepatitis (RAYGOZA) Lower extremity edema Expected: 06/08/2021, Expires: 01/30/2022 PT-INR Lab STAT 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) Nonalcoholic steatohepatitis (RAYGOZA) Lower extremity edema Expected: 06/08/2021, Expires: 01/30/2022 ALPHA FETOPROTEIN BLOOD TUMOR MARKER Lab Routine 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) Nonalcoholic steatohepatitis (RAYGOZA) Lower extremity edema Expected: 06/08/2021, Expires: 01/30/2022 documented as of this encounter Goals Goal [...] Comments ALPHA FETOPROTEIN BLOOD TUMOR MARKER Routine 01/09/2021 10:55 AM CDT 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) Lower extremity edema PT-INR STAT 01/09/2021 10:55 AM CDT 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) Lower extremity edema CBC W AUTO DIFFERENTIAL Routine 01/09/2021 10:55 AM CDT 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) Nonalcoholic steatohepatitis (RAYGOZA) Lower extremity edema COMPREHENSIVE METABOLIC PANEL Routine 01/09/2021 10:55 AM CDT 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) Lower extremity edema documented in this encounter Results * US ABDOMEN LIMITED (03/19/2021 1:34 PM CDT) Anatomical Region Laterality Modality Abdomen Ultrasound 03/19/2021 1:24 PM CDT Impressions 03/19/2021 2:59 PM CDT IMPRESSION: 1. Hepatic steatosis without focal liver mass. 2. No evidence of cholelithiasis or acute cholecystitis. Dictated by Jens Mendoza MD (residential solar consultant). This report was approved ??by Jens Mendoza [...] acute cholecystitis. Dictated by Jens Mendoza MD (residential solar consultant). This report was approved by Jens Mendoza on 03/19/2021 2:30 PM . I, Dr. AMBREEN GALVEZ have personally reviewed and interpreted this examination/study. This report was electronically signed by AMBREEN GALVEZ on 12:59 PM . Jackelyn Licona MD ORDERABLES * (ABNORMAL) CBC WITH DIFFERENTIAL (01/09/2021 10:55 AM CDT) White Blood Cell Count 8.3 3.8 - 10.8 Thousand/u L [facility] RBC 5.13 4.20 - 5.80 Million/uL [facility] Hemoglobin 15.1 13.2 - 17.1 g/dL [facility] Hematocrit 47.6 38.5 - 50.0 % [facility] MCV 92.8 80.0 - 100.0 fL [facility] MCH 29.4 27.0 - 33.0 pg [facility] MCHC 31.7(L) 32.0 - 36.0 g/dL [facility] RDW 13.1 11.0 - 15.0 % [facility] Platelet Count 98(L) 140 - 400 Thousand/u L [facility] MPV 12.7(H) 7.5 - 12.5 fL [facility] Neutrophil Absolute 6159 1500 - 7800 cells/uL [facility] Lymphocytes Absolute 963 850 - 3900 cells/uL [facility] Absolute Monocytes 772 200 - 950 cells/uL [facility] Eosinophils Absolute 340 15 - 500 cells/uL [facility] Basophils Absolute 66 0 - 200 cells/uL [facility] Granulocytes % 74.2 % [facility] Lymphocytes % 11.6 % [facility] Monocytes % 9.3 % [facility] Eosinophils % 4.1 % [facility] Basophils % 0.8 % [facility] Comment: Test Performed at: [facility] [address] [place], [place] ??[phone] ROSS LOPEZ DO,MPH Blood BLOOD SPECIMEN / Unknown 01/09/2021 10:55 AM CDT 01/09/2021 10:56 AM CDT Jackelyn Licona MD LAB - HEMATOLOGY ORD ERABLES Performing Organization Address [facility] Co de Phone Number [facility] [address] [place] [address] * ALPHA FETOPROTEIN BLOOD TUMOR MARKER (01/09/2021 10:55 AM CDT) [facility] Alpha-Fetoprotei n Tumor Marker 1.3 <6.1 ng/mL [facility] Comment: This test was performed using the Flex Delta chemiluminescent method. Values obtained from different assay methods cannot be used interchangeably. AFP levels, regardless of value, should not be interpreted as absolute evidence of the presence or absence of disease. Test Performed at: [facility] [address] ??[phone] LAURA REYES MD Blood BLOOD SPECIMEN / Unknown 01/09/2021 10:55 AM CDT 01/09/2021 10:56 AM CDT Jackelyn Licona MD LAB - CHEMISTRY [facility]arj [facility] Performing Organization Address [facility] de Phone Number [facility] [address] [place] [address] * PT-INR (01/09/2021 10:55 AM CDT) [facility] INR 1.0 [facility] Comment: Reference Range ? 0.9-1.1 Moderate-intensity Warfarin Therapy 2.0-3.0 Higher-intensity Warfarin Therapy ?? 3.0-4.0 PT 10.6 9.0 - 11.5 sec [facility] Comment: For additional information, please refer to http://education.[employer]/faq/ETS750 (This link is being provided for informational/ educational purposes only.) Test Performed [facility] [address] [place], [place] ??[phone] DORIAN CRUZ MD Blood BLOOD SPECIMEN / Unknown 01/09/2021 10:55 AM CDT 01/09/2021 10:56 AM CDT Jackelyn Licona MD LAB - COAGULATION OR DERABLES [address] [address] * (ABNORMAL) COMPREHENSIVE METABOLIC PANEL (01/09/2021 10:55 AM CDT) Glucose 144(H) 65 - 99 mg/dL [facility] Comment: ? Fasting reference interval For someone without known diabetes, a glucose value >125 mg/dL indicates that they may have diabetes and this should be confirmed with a follow-up test. BUN 50(H) 7 - 25 mg/dL [facility] Creatinine 2.07(H) 0.70 - 1.18 mg/dL [facility] Comment: For patients >49 years of age, the reference limit for Creatinine is approximately 13% higher for people identified as -[place]. eGFR by MDRD 31(L) > OR = 60 mL/min/1. 73m2 [facility] eGFR by MDRD 36(L) > OR = 60 mL/min/1. 73m2 [facility] BUN/Creatinine Ratio 24(H) 6 - 22 (calc) [facility] Sodium 137 135 - 146 mmol/L [facility] Potassium 4.4 3.5 - 5.3 mmol/L [facility] Chloride 102 98 - 110 mmol/L [facility] CO2 26 20 - 32 mmol/L [facility] Calcium 9.7 8.6 - 10.3 mg/dL [facility] Protein Total 6.9 6.1 - 8.1 g/dL [facility] Albumin 3.9 3.6 - 5.1 g/dL [facility] Globulin Total 3.0 1.9 - 3.7 g/dL (calc) [facility] Albumin/Globulin Ratio 1.3 1.0 - 2.5 (calc) [facility] Bilirubin Total 0.9 0.2 - 1.2 mg/dL [facility] Alkaline Phosphatase 119 35 - 144 U/L [facility] AST 18 10 - 35 U/L [facility] ALT 23 9 - 46 U/L [facility] Comment: Test Performed at: [facility] [address] [place], [place] ??[phone] ROSS LOPEZ DO,MPH Blood BLOOD SPECIMEN / Unknown 01/09/2021 10:55 AM CDT 01/09/2021 10:56 AM CDT Jackelyn Licona MD LAB - CHEMISTRY ROYCE KLINE Performing Organization Address City/State/[facility] Co de Phone Number [facility] [address] [place] [address] documented in this encounter Visit Diagnoses Diagnosis Nonalcoholic steatohepatitis (RAYGOZA)- Primary Other chronic nonalcoholic liver disease 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) Other chronic nonalcoholic liver disease Lower extremity edema Edema Cirrhosis of liver without ascites, unspecified hepatic cirrhosis type (HCC) Metabolic syndrome Dysmetabolic Syndrome X Atrial fibrillation, unspecified type (HCC) 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) Other chronic nonalcoholic liver disease Nonalcoholic steatohepatitis (RAYGOZA) Other chronic nonalcoholic liver disease Lower extremity edema Edema documented in this encounter Additional Health Concerns Infection Onset Date Last Indicated Resolved Time 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
--- OUTSIDE RECORDS SUMMARY | 2024-05-24 23:35 | XMS_ITS | Encounter Summary ---
Author Organization [facility] Address [address] [facility] [place] [address] Care Team Providers Care Biomedical Analytical Scientist Name Role Phone Briana Medeiros MD Primary Care Provider [phone] Encounter Details Date Type Department Care Team (Latest Contact Info) Description 03/19/2021 Travel Social History Tobacco Use Types Packs/Day [...] st Contact Info) Description 07/09/2024 12:30 PM WARPMAN Office Visit [facility] - GI [address] [facility], [place] [address] Twin Miller MD [address] [facility] [address] [facility] [place] [address] 09/19/2024 2:00 PM CDT Office Visit [facility] - Orthopedic Surgery [address] [facility] [place] [id number] Larry Alexander MD [address] [facility] [address] [place] [address] documented as of this encounter Goals Goal [...] documented as of this encounter Care Teams Biomedical Analytical Scientist Relationship Specialty Start Date End Date Briana Medeiros MD [address] [place] [address] PCP - General 02/15/18 02/22/22 documented as of this encounter
--- OUTSIDE RECORDS SUMMARY | 2024-05-24 23:35 | XMS_ITS | Encounter Summary ---
Author Organization [facility] Address [address] [facility] [place] [address] Care Team Providers Care Independent Beauty Consultant Name Role Phone Briana Medeiros MD Primary Care Provider [phone] Reason for Referral * Radiology Services (Routine) - Closed Specialty Diagnoses / Procedures Referred By Contac t Referred To Contact Ultrasound Diagnoses 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) Procedures US ABDOMEN LIMITED Jackelyn Licona MD [address] [place] [address] [address] Referral ID Status Reason Start Date Expiration Date Visits Re quested Visits Authorized [id number] Closed 09/04/2020 09/04/2021 1 1 Reason for Visit * Radiology Services (Routine) - Closed Specialty Diagnoses / Procedures Referred By Contac t Referred To Contact Ultrasound Diagnoses 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) Procedures US ABDOMEN LIMITED Jackelyn Licona MD [address] [place] [address] [address] Referral ID Status Reason Start Date Expiration Date Visits Re quested Visits Authorized [id number] Closed 09/04/2020 09/04/2021 1 1 Encounter Details Date Type Department Care Team (Late st Contact Info) Description 09/19/2020 8:05 AM CDT - 09/19/2020 11:59 PM CDT Hospital Encounter [facility] [id number] [place] [address] Jackelyn Licona MD [address] [place] [phone] Discharge Disposition: Home or Self Care Social [...] ORAL ROUTE DAILY 11/28/2019 10/21/2020 nystatin (MYCOSTATIN) 258401 UNIT/GM powder Apply to affected area 2 [...] as needed. 10/12/2023 vitamin D, ergocalciferol, (DRISDOL) 99375 UNITS capsuleIndications:Othe r cirrhosis of liver (HCC) Take 50,000 Units by mouth every 7 days 0 02/02/2018 03/21/2023 documented as of this encounter Plan of Treatment Upcoming Encounters Date Type Department Care Team (Late st Contact Info) Description 07/09/2024 12:30 PM AREA FIELD WORKER Office Visit [facility] - GI [address] [place] [address], [place] [address] Twin Miller MD [address] [place] [address] [place] [address] 09/19/2024 2:00 PM CDT Office Visit [facility] - Orthopedic Surgery [address] [place] [phone] Larry Alexander MD [address] [facility] [address] [place] [address] documented as of this encounter Goals Goal [...] Associated Diagnosis Comments US ABDOMEN LIMITED Routine 09/19/2020 8: 49 AM CDT Liver cirrhosis secondary to RAYGOZA [...] López MD (Resident). This report was approved ??by [...] by AMBREEN GALVEZ on 19:29 AM . 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
--- OUTSIDE RECORDS SUMMARY | 2024-05-24 23:35 | XMS_ITS | Encounter Summary ---
Author Organization [facility] Address [address] [facility] [place] [address] Care Team Providers Care Staple Laster Name Role Phone Briana Medeiros MD Primary Care Provider [phone] Reason for Referral * Radiology Services (Routine) - Closed Specialty Diagnoses / Procedures Referred By Contac t Referred To Contact Gastroenterology Diagnoses Liver cirrhosis secondary to MICHAUD (HCC) Metabolic syndrome Procedures PROC FIBROSCAN Jackelyn Licona MD [address] [place] [address] Referral ID Status Reason Start Date Expiration Date Visits Re quested Visits Authorized [id number] Closed 02/26/2020 02/25/2021 1 1 * Radiology Services (Routine) - Closed Specialty Diagnoses / Procedures Referred By Contac t Referred To Contact Ultrasound Diagnoses Liver cirrhosis secondary to MICHAUD (HCC) Metabolic syndrome Procedures US ABDOMEN LIMITED Jackelyn Licona MD [address] [place] [address] [facility] [address] [place] [address] Referral ID Status Reason Start Date Expiration Date Visits Re quested Visits Authorized [id number] Closed 02/26/2020 02/25/2021 1 1 Reason for Visit * Reason Comments Michaud Cirrhosis Encounter Details Date Type Department Care Team (Late st Contact Info) Description 02/26/2020 3:30 PM CDT Office Visit [facility] - GI [address] [facility], [place] [address] Jackelyn Licona MD [address] [place] [address] Liver cirrhosis secondary to MICHAUD (HCC) (Primary Dx); Metabolic syndrome; Atrial fibrillation, unspecified type (HCC); Methicillin resistant Staphylococcus aureus infection as the cause of diseases classified elsewhere Social History Tobacco Use Types Packs/Day Years [...] Sign Reading Time Taken Comments Blood Pressure 150/103 02/26/2020 2:57 PM CDT Pulse 86 02/26/2020 2:57 PM CDT Temperature 35.6 ??C (96 ??F) 02/26/2020 2:57 PM CDT Respiratory Rate - - Oxygen Saturation 100% 02/26/2020 2:57 PM CDT Inhaled Oxygen Concentration - - Weight 120.2 kg (265 lb) 02/26/2020 2:57 PM CDT Height 175.3 cm (5' 9 ) 02/26/2020 2:57 PM CDT Body Mass Index 39.13 02/26/2020 2:57 PM CDT documented in this encounter Functional [...] Progress Notes * Jackelyn Licona MD - 02/26/2020 2:59 PM CDT [facility] Jackelyn Licona MD Referring Provider: Provider Unknown PCP: Briana Medeiros MD Interval history and subjective concerns: I had the pleasure of meeting Mason Keys at the [facility] on 02/26/2020. This is a 69 year old male with history of MICHAUD [...] LVP. Was previously on lasix, now on bumes -Varices: No bleeding episodes. Last EGD 2017 without varices. -Encephalopathy: Had episode of confusion while hospital, likely related to medication. Interval events: Today, states that his back has been hurting more. Otherwise, no complaints. 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 Alcohol: Does not drink alcohol. Tobacco: He did smoke from 7802-5061. Review of Systems: Constitutional: negative for fevers, chill Eyes: negative for visual disturbance ENT: negative for hearing changes Respiratory: negative for shortness of breath Cardiovascular: negative for chest pain Gastrointestinal: negative for nausea or vomiting Genitourinary:negative for dysuria Hematologic/lymphatic: positive for easy bruising, bleeding Musculoskeletal: negative for myalgias, arthralgias Neurological: negative for headaches Exam: Wt Readings from Last 3 Encounters: 02/26/20 120.2 kg (265 lb) 02/07/20 112 kg (247 lb) 01/03/20 112 kg (247 lb) BP 150/103 Pulse 86 Temp 96 ??F (35.6 ??C) (Temporal) Ht 1.753 m (5' 9 ) Wt 120.2 kg (265 lb) QyM2106% BMI 39.13 kg/m2 General appearance: normal, alert, no distress, [...] 0231 05/05/19 0215 05/04/19 0307 05/02/19 0410 09/19/17 0243 09/18/17 0003 09/17/17 0433 09/06/17 1621 09/06/17 1211 09/06/17 1157 09/04/17 0447 09/03/17 0431 07/29/17 1130 BUN 27* 35* 39* 22 [...] at 02/20/2020 1:23 PM Age: 69 years Chronic liver disease [...] % 16 - 50 % 5 (L) Zifyg-5-Ihpqiaanlnp 90 - 200 mg/dL 223 (H) Phenotype (PI) Comment Hepatitis C Antibody Non-reactive Non-reactive HBc Antibody Total Non-reactive Non-reactive Hepatitis B Virus Surface Antigen Non-reactive Non-reactive Last endoscopies: EGD: -09/15/17: PEG placement. No esophageal varices. Colonoscopy: -Patient reports 2017 without polyps Last imaging: -[facility] 11/06/18: Hepatic cirrhosis without discrete hepatic lesion or intrahepatic biliary dilation. Patent hepatic vasculature. -[facility] 05/16/2019: Hepatic cirrhosis. No discrete hepatic lesion or biliary dilation. Liver biopsy/Fibroscan: Assessment: 1. Compensated MICHAUD cirrhosis -Transplant is not a consideration at this time due to low MELD, advanced age, and multiple comorbidities. 2. Metabolic syndrome 3. A fib 4. 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 Repeat imaging for HCC. 2. Plan for EGD given that plts <150 3. Counseled regarding low sodium diet. 4. I have also recommended a high protein diet. 5. Fibroscan prior to next visit I have asked him to return for a follow up visit in 6 months with MELD labs and AFP prior to that visit. Jackelyn Licona MD Special Effects Technician Division of Gastroenterology and Hepatology No orders [...] mouth 3 times daily as needed for Cough(Patient not taking: Reported on 04/29/2019) ??? bumetanide (BUMEX) 0.5 MG tablet Take [...] daily with morning and evening meal ??? HYDROcodone-acetaminophen (NORCO) 10-325 MG tablet ??? metoprolol succinate XL 24hr (TOPROL XL) 50 MG tablet Take 50 mg by mouth once daily ??? nystatin (NYSTOP) 669125 UNIT/GM powder Apply to affected area 2 times daily as needed Apply togroin area twice a day as needed. ??? omeprazole (PRILOSEC) 40 MG capsule Take 40 mg by mouth daily before breakfast ??? oxyCODONE, immediate release, 10 MG tablet Take 1 tablet by mouth every 4 hours as needed ??? potassium chloride ER (KLOR-CON M) 20 [...] as needed. ??? vitamin D, ergocalciferol, (DRISDOL) 95082 UNITS capsule Take 50,000 Units by mouth every 7 days No current facility-administered medications for this visit. documented in this encounter Plan of Treatment Upcoming Encounters Date Type Department Care Team (Late st Contact Info) Description 07/09/2024 12:30 PM NICKEL PLATER Office Visit [facility] - GI [address] [facility] [place] [address] Twin Miller MD [address] [facility] [address] [facility] [place] [address] 09/19/2024 2:00 PM CDT Office Visit [facility] - Orthopedic Surgery [address] [facility] [place] [address] Larry Alexander MD [address] [facility] [address] [place] [address] documented as of this encounter Goals Goal [...] documented as of this encounter Results * ME LIVER ELASTOGRAPHY (08/31/2020 9:47 PM CDT) Narrative [...] patients with nonalcoholic fatty liver disease. Gastroenterology 2019;156:3506-4164. Rico MS, Lina R, Van Maryta ML, et al. Vibration-controlled transient elastography to [...] improved by also calculating the FIB4 score (Holayduke et al. [employer] 2019;3:7502-2988) or NAFLD Fibrosis score (Lutz et al. Clinical Gastroenterology and Hepatology 2019;17:0412-7390. from routine clinical data. 3. Liver stiffness [...] Cholestatic liver diseases: >10 and >17.9 kPa NAFLD/MICHAUD: >10 and >14 kPa CAP estimates of steatosis: normal <200 dB/m mild 200 to 250 dB/m moderate 250-290 dB/m substantial > 290 dB/m (Note that Fibroscan is not a quantitative measure of liver fat.) These criteria are estimates and may change as additional supporting data becomes available. [email or web address] Jackelyn Licona MD PROCEDURE/MINOR SURG ICAL ORDERABLES * US ABDOMEN LIMITED (03/19/2020 11:44 AM CDT) Anatomical Region Laterality Modality Abdomen Ultrasound 03/19/2020 10:3 3 AM CDT Impressions 03/19/2020 10:56 AM CDT IMPRESSION: Coarse liver echotexture without discrete hepatic lesion. Report dictated by Vanessa Wu MD (vice president of consulting services). I, Dr. TATIANA HORVATH have personally reviewed and interpreted this examination/study. This report was electronically signed by TATIANA HORVATH ??on 03/19/2020 10:56 AM . Narrative 03/19/2020 10:56 AM CDT EXAMINATION: Limited right upper quadrant abdominal sonogram HISTORY: K75.81: Liver cirrhosis secondary to MICHAUD K74.60: Liver cirrhosis secondary to MICHAUD E88.81: Metabolic syndrome COMPARISON: Comparison is made [...] echogenicity. No ascites is present. Procedure Note Tatiana Horvath MD - 03/19/2020 EXAMINATION: Limited right upper quadrant abdominal sonogram HISTORY: K75.81: Liver cirrhosis secondary to MICHAUD K74.60: Liver cirrhosis secondary to MICHAUD E88.81: Metabolic syndrome COMPARISON: Comparison is made [...] lesion. Report dictated by Vanessa Wu MD (vice president of consulting services). I, Dr. TATIANA HORVATH have personally reviewed and interpreted this examination/study. This report was electronically signed by TATIANA HORVATH on 03/19/2020 10:56 AM . Jackelyn Licona MD ORDERABLES documented in this encounter Visit Diagnoses Diagnosis Liver cirrhosis secondary to MICHAUD (HCC)- Primary Other chronic nonalcoholic liver disease Metabolic syndrome Dysmetabolic Syndrome X Atrial fibrillation, unspecified type (HCC) Methicillin resistant Staphylococcus aureus infection as the cause of diseases classified elsewhere Liver cirrhosis secondary to MICHAUD (HCC) Other chronic nonalcoholic liver disease Metabolic syndrome Dysmetabolic Syndrome X Liver cirrhosis secondary to MICHAUD (HCC)- Primary Other chronic nonalcoholic liver disease Metabolic syndrome Dysmetabolic Syndrome X documented in this encounter Additional Health Concerns Infection Onset Date Last Indicated Resolved Time 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
--- OUTSIDE RECORDS SUMMARY | 2024-05-24 23:35 | XMS_ITS | Encounter Summary ---
Author Organization [facility] Address [address] [facility] [place] [address] Care Team Providers Care Enameler Name Role Phone Briana Medeiros MD Primary Care Provider [phone] Reason for Visit * Auth/Cert Specialty Diagnoses / Procedures Referred By Contac t Referred To Contact Diagnoses 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) Metabolic syndrome K75.81, K74.60 Liver cirrhosis secondary to RAYGOZA E88.81 Metabolic syndrome Procedures OK ED EGD FLEX TRANSORAL DX OK EGD FLEX TRANSORAL W BX SNGL OR MULT ESOPHAGOGASTRODUODENOSCOPY (EGD) DIAGNOSTIC Referral ID Status Reason Start Date Expiration Date Visits Re quested Visits Authorized [id number] 1 1 Encounter Details Date Type Department Care Team (Late st Contact Info) Description 07/03/2020 7:48 AM [facility] - 07/03/2020 11:18 AM [facility] Hospital Encounter [facility] [address] [place] [address] Jackelyn Licona MD [address] [place] [address] Gastroenterology Discharge Disposition: Home or Self Care Social [...] Sign Reading Time Taken Comments Blood Pressure 138/97 07/03/2020 10:45 AM [facility] Pulse 90 07/03/2020 10:45 AM [facility] Temperature 36.7 ??C (98 ??F) 07/03/2020 8:28 AM [facility] Respiratory Rate 31 07/03/2020 10:45 AM [facility] Oxygen Saturation 94% 07/03/2020 10:45 AM [facility] Inhaled Oxygen Concentration 96% 07/03/2020 8 :28 AM [facility] Weight 111.1 kg (245 lb) 07/03/2020 8:15 AM [facility] Height 180.3 cm (5' 11 ) 07/03/2020 8:15 AM [facility] Body Mass Index 34.17 07/03/2020 8:15 AM [facility] documented in this encounter Functional Status Functional [...] Erika Gama RN - 07/03/2020 10:48 AM [facility] Images from the original note were not [...] ask them during your visits. ?? Copyright [employer] 2020 Information is for End User's use only and may not be sold, redistributed or otherwise used for commercial purposes. All illustrations and images included in CareNotes?? are the copyrighted property of [employer]. or [employer] The above information is an nursing aide only. It is not intended as medical advice for individual conditions or treatments. Talk to your doctor, nurse or pharmacist before following any medical regimen to see if it is safe and effective for you. [facility] documented in this encounter Medications at Time [...] ORAL ROUTE DAILY 11/28/2019 10/21/2020 nystatin (MYCOSTATIN) 435096 UNIT/GM powder Apply to affected area 2 [...] as needed. 10/12/2023 vitamin D, ergocalciferol, (DRISDOL) 20728 UNITS capsuleIndications:Othe r cirrhosis of liver (HCC) [...] 02/13/2019 [facility] VAT R basilic ??? Seizures ??? Squamous [...] puffy, itchy ??? Scopace [Scopolamine] Other and SLOTS MANAGER Dysfunction delirium ??? Tobramycin Eye Itching red [...] there are no changes. Jackelyn Licona MD [facility] documented in this encounter Plan of Treatment Upcoming Encounters Date Type Department Care Team (Late st Contact Info) Description 07/09/2024 12:30 PM [facility] Office Visit [facility] - GI [address] [place] [address], [facility] [place] [address] Twin Miller MD [address] [place] [address] [place] [address] 09/19/2024 2:00 PM CDT Office Visit [facility] - Orthopedic Surgery [address] [facility] [place] [phone] Larry Alexander MD [address] [facility] [address] [place] [address] documented as of this encounter Goals Goal [...] PATHOLOGY TISSUE Routine 07/03/2020 10:2 0 AM [facility] 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) Metabolic syndrome OK ED EGD FLEX TRANSORAL DX 07/03/2020 10:14 AM [facility] 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) Metabolic syndrome Special Needs EGD Mason Keys [address] Licona Thanks!! EGD Routine 07/03/2020 10:03 AM [facility] GLUCOSE - POINT OF CARE Routine 07/03/2020 8:27 AM [facility] documented in this encounter Results * PATHOLOGY TISSUE (07/03/2020 10:20 AM [facility]) Case Report Surgical Pathology Report ? Case: [id number] ? Authorizing Provider: ??Jackelyn Licona MD ? Collected: ? 07/03/2020 10:20 AM ? Ordering Location: ? [facility] ?Received: ?07/03/2020 11:20 AM ? Pathologist: ? Jayshree Merino MD ? Specimen: ?Esophagus, esophageal erythema bx ? 07/04/2020 6:22 PM [facility] Final Diagnosis Esophagus, erythema, biopsy (A): - Focal parakeratosis, see comment 07/04/2020 6:22 PM [facility] Microscopic Description and Comment The esophageal biopsy has a small focus of parakeratosis but is otherwise without significant findings (no inflammation, erosion, or prominent reactive changes). Given the focal parakeratosis, a GMS stain was performed, but is negative for yeast or pseudohyphae. 07/04/2020 6:22 PM [facility] Clinical History The patient is a 69 year old man with a history of cirrhosis who presented for variceal surveillance . Operative procedure/findings: EGD - multiple plaques in the middle third of the esophagus, biopsied. 07/04/2020 6:22 PM [facility] Gross Description The requisition and specimen(s) are labeled with the patient's name, Mason Keys. Received in formalin, specimen A , are 2 turner-white tissue fragments each measuring 0.5 x 0.2 x 0.1 cm. The specimen is submitted in toto in cassette A1.OW 07/04/2020 6:22 PM [facility] Disclaimer The performance characteristics of all immunohistochemical and indirect immunofluorescence stains (if any) cited in this report were determined by the Histopathology Laboratory of [facility]. Some of these tests were developed [...] the attending (teaching) pathologist. 07/04/2020 6:22 PM [facility] Embedded Images 07/04/2020 6:22 PM [facility] Biopsy, NOS REGION OF ESOPHAGUS / Unknown 07/03/2020 10:20 AM [facility] 07/03/2020 11:20 AM [facility] Comment:Pre-op diagnosis: K75.81, K74.60 Liver cirrhosis secondary to RAYGOZA E88.81 Metabolic syndrome Jackelyn Licona MD LAB - PATHOLOGY/CYTO LOGY ORDERABLES [facility] [address] [place] [address], [facility] [phone] * EGD (07/03/2020 10:03 AM [facility]) Report Endoscopy POC Endoscopy Department Report _ [...] Procedure Code(s): ? --- Professional --- ? 12329, Esophagogastroduod enoscopy, flexible, transoral; with biopsy, ? single or multiple Diagnosis Code(s): ?--- Professional --- ?K22.8, Other specified diseases of esophagus ?K31.89, Other diseases of stomach and duodenum ?K74.60, Unspecified cirrhosis of liver CPT copyright 2019 [employer]. All rights reserved. The codes documented in this report are preliminary and upon range rider review may be revised to meet current compliance requirements. Jackelyn Licona, 07/03/2020 10:32:16 AM Note Initiated On: 07/03/2020 10:03 AM Number of Addenda: 0 ? [facility] ? [address] [place] [address] [facility] 07/03/2020 10:0 3 AM MANA[facility]ARE UNIT Jackelyn Licona MD GI PROCEDURE ORDERAB LES [facility] * (ABNORMAL) GLUCOSE - POINT OF CARE (07/03/2020 8:27 AM MA[facility] UNIT) Glucose WB/POC 119(H) 70 - 115 mg/dL 07/03/2020 8:31 AM [facility]ARE UNIT [facility] Specimen Type Venous 07/03/2020 8:31 AM [facility]IT [facility] Blood BLOOD SPECIMEN / Unknown 07/03/2020 8:27 AM [facility] 07/03/2020 8:31 AM [facility]IT Jackelyn Licona MD LAB - POINT OF CARE ORDERABLES Performing Organization Address City/[facility]/ZIP Co de Phone Number [facility] [address] [phone], [facility] [phone] documented in this encounter Visit Diagnoses Diagnosis 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) Other chronic nonalcoholic liver disease Metabolic syndrome Dysmetabolic Syndrome X Other specified diseases of esophagus Other diseases of stomach and duodenum Cirrhosis of liver without ascites, unspecified hepatic cirrhosis type (HCC) documented in this encounter Administered Medications [...] Recently Administered Medications Times are shown in [facility]IT. Scheduled Medication Order 07/01/2020 07/02/2020 07/03/2020 0.9% [...] documented as of this encounter Care Teams Enameler Relationship Specialty Start Date End Date Briana Medeiros MD [address] [place], [place] [id number] PCP - General 02/15/18 02/22/22 documented as of this encounter
--- OUTSIDE RECORDS SUMMARY | 2024-05-24 23:35 | XMS_ITS | Encounter Summary ---
Author Organization [facility] Address [address] [facility] [place] [address] Care Team Providers Care Leadership Recruiter Name Role Phone Briana Medeiros MD Primary Care Provider [phone] Reason for Visit * Auth/Cert Specialty Diagnoses / Procedures Referred By Contac t Referred To Contact Diagnoses 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) Metabolic syndrome K75.81, K74.60 Liver cirrhosis secondary to RAYGOZA E88.81 Metabolic syndrome Procedures [place] ED EGD FLEX TRANSORAL DX [place] EGD FLEX TRANSORAL W BX SNGL OR MULT ESOPHAGOGASTRODUODENOSCOPY (EGD) DIAGNOSTIC Referral ID Status Reason Start Date Expiration Date Visits Re quested Visits Authorized [id number] 1 1 Encounter Details Date Type Department Care Team (Late st Contact Info) Description 07/03/2020 10:06 AM RABBLER Anesthesia Event [facility] [place] [phone] Nika Cho MD [address] [place] [address] [place] [address] Anesthesia Record Procedure Summary Procedure Name Responsible Anesthesiologist Anesthesia Start Time Anesthesia Stop Time ESOPHAGOGASTRODUODENOSCOPY ( EGD) DIAGNOSTIC--MARTINEZ (Abdomen) Nika Cho MD 07/03/20 1006 07/03/20 103 2 Events Date Time Event Comment 07/03/2020 0903 1006 An Start 1006 Pt In Room 1007 An Start Data 1011 Timeout Anesthesia part icipated in timeout at the time documented in the record by nursing. 1011 Anes Timeout 1011 PT Reassessment 1013 Induction 1014 Anes Ready 1014 Proc Start 1021 Proc Stop 1024 An Emergence 1032 an stop data 1032 Pt out of Room 1032 ANPTO2 1032 An Stop Meds Name Total glycopyrrolate 0.4 mg/2mL injection 0.2 mg lidocaine PF 2% 100 mg propofol 200mg/20mL injection 150 mg propofol 500 mg/50 mL injection 128.32 m g NS (0.9% NaCl) 0 mL * Agents Name Insp. N2O Exp. N2O O2 Flow - Auxiliary O2 * Blood No blood administrations on file. Lines, Drains, and Airways Type Details Placement Removal Enteral - 09/15/17; 914; Dr. Guerra; PEG; Abdomen, Left; Well; 10/28/23 (removed long ago); 204209/15/17 09 by Denise Damon RN 10/28/232042 by Sonia Hunter RN Peripheral IV Date: 07/03/20; Time : 825; Orientation: Right; Placed By: Jerri DIGGS; Tolerance: Well 07/03/20 0826 by Susana Tang RN 07/03/20 1110 by Erika Gama RN documented in this encounter Social History [...] as of this encounter Progress Notes * Nika Cho MD - 07/03/2020 1:37 PM CST ANESTHESIA POSTOP EVALUATION NOTE Procedure: ESOPHAGOGASTRODUODENOSCOPY (EGD) DIAGNOSTIC--MARTINEZ (N/A Abdomen) Mason Keys is a 69 year old male Patient Vitals for the past 6 hrs: BP Temp Pulse Resp SpO2 Pain Scale/Observation 07/03/20 0828 (!) 153/107 98 ??F (36.7 ??C) 86 24 97 % No/denies pain 07/03/20 1035 135/85 -- 82 13 96 % -- 07/03/20 1045 138/97 -- 90 31 94 % -- Anesthesia Type: MAC Pre-op Diagnosis Codes: * Liver cirrhosis secondary to RAYGOZA [K75.81, K74.60] * Metabolic syndrome [E88.81] Mental Status: awake, alert, oriented and sufficiently recovered from acute administration of anesthesia to participate in the evaluation Respiratory Function: natural Cardiac Function: stable Postop Pain: acceptable to the patient Postop Hydration: adequate Postop Nausea: none Assessment: no apparent anesthetic complications, patient tolerated procedure well and no evidence of recall Patient Disposition: Release from Anesthesia Care COMPLICATIONS: No complications documented. LER * Nika Cho MD - 07/03/2020 8:45 AM CST ANESTHESIA PREOPERATIVE EVALUATION NOTE Procedure: ESOPHAGOGASTRODUODENOSCOPY (EGD) DIAGNOSTIC--MARTINEZ (N/A Abdomen) NPO status: Since Midnight (07/03/2020 8:30 AM) Vitals: No data found. ANESTHESIA PRE-EVALUATION NOTE History of Present Illness: 69 y/o male scheduled for EGD today. PMH includes RAYGOZA, cirrhosis, DVT, Chronic AF Previous Airway Management: ETT Placed: ETT Size: 8 Blade Type: MAC Blade Size: 4 GradeGrade: 1 Mask Airway: Easy Physical Exam: Orientation X3 Airway/Mallampati Score: II Mouth Opening Distance: 2.5 fingerwidths Neck ROM: limited Teeth: dentures/partials lower and dentures/partials upper (full upper dentures, partial lower, denies loose teeth) Heart: other - comments (AF - irregular rhythm) Lungs: normal Abdomen Exam: distended Review of Systems: History of anesthetic complications: No Malignant Hyperthermia: No GERD: No Poor Exercise Tolerance: Yes (uses walker) Recent Chest Pain: No Shortness of Breath: Yes AICD/Pacemaker: No Renal Disease: No Diagnostic Tests: ECG(s) reviewed: Yes Chest X-Ray(s) reviewed: Yes. Echo(s) reviewed: Yes (Echo to be done 05/01). Lab(s) reviewed: Yes. Other Findings: ecg 02/03/19 ATRIAL FIBRILLATION LOW VOLTAGE QRS SEPTAL INFARCT , AGE UNDETERMINED ABNORMAL ECG Echo 07/28/17 Limited study; No dopplers were performed. There are no regional wall motion abnormalities present. The left ventricular ejection fraction is normal, EF 60% . The right ventricular systolic function is normal. The right atrial cavity size is mildly increased. The left atrial cavity size is mildly increased. The technical quality of the images are suboptimal due to the acoustic window. No vegetations are noted. However, a AMERICA would provide more diagnostic information if endocarditis is suspected. ANESTHESIA PLAN ASA Score: 4 NPO Status: No solids since midnight and No liquids within 2 hours Anesthesia Plan: MAC Planned Induction: intravenous Planned Postop Destination: PACU Anesthetic plan was discussed with: patient, spouse ( [facility] telephone consent [phone]) Anesthetic Plan discussion was: Consented The patient's procedural Anesthetic Plan was discussed with the WOUND/OSTOMY CLINICAL NURSE SPECIALIST and oral surgery assistant. Overall additional findings/comments: MAC with GA + ET tube in reserve, standard monitors. BMI, Height, Weight Tobacco History Estimated body mass index is 34.17 kg/m?? as calculated from the following: Height as of an earlier encounter on 07/03/20: 1.803 m (5' 11 ). Weight as of an earlier encounter on 07/03/20: 111.1 kg (245 lb). Social History Tobacco Use Smoking Status Former Smoker ??? Quit date: 06/06/1981 ??? Years since quittin.1 Smokeless Tobacco Never Used Alcohol History Drug History Social History Substance and Sexual Activity Alcohol Use No Social History Substance and Sexual Activity Drug Use No Outpatient Medications: Inpatient Medications: No outpatient medications have been marked as taking for the 07/03/20 encounter (Anesthesia Event) with Nika Cho MD. No current facility-administered medications for this visit. Allergies: Allergies Allergen Reactions ??? Penicillins Skin Reactions and Swelling ??? Levaquin [Levofloxacin] Eye Itching red around the eyes , puffy, itchy ??? Scopace [Scopolamine] Other and LOAN SERVICES PROFESSIONAL Dysfunction delirium ??? Tobramycin Eye Itching red around the eyes, puffy, itchy Relevant Problems Cardiovascular (+) Chronic atrial fibrillation (+) Acute kidney failure Other (+) Discitis of lumbar region (+) Liver cirrhosis secondary to RAYGOZA (+) Methicillin resistant Staphylococcus aureus infection Problem List: Patient Active Problem List Diagnosis Date Noted ??? 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 Liver cirrhosis secondary to RAYGOZA 08/17/2018 Priority: Not Prioritized US 05/2018, no lesions EGD 2017, no varices ??? Hypoxemia 09/06/2017 ??? Pleural effusion on left 08/29/2017 ??? Methicillin resistant Staphylococcus aureus infection 08/29/2017 ??? Extradural and subdural abscess, unspecified 08/29/2017 ??? Acute respiratory failure with hypoxia 08/29/2017 ??? Discitis of lumbar region 08/29/2017 ??? Acute kidney failure 08/29/2017 ??? Sepsis 08/27/2017 ??? Severe sepsis without septic shock (CODE) 08/27/2017 ??? Acute embolism and thrombosis of deep vein of lower extremity 07/25/2017 ??? Bacteremia 07/25/2017 ??? Vitamin D deficiency 07/08/2017 ??? Local infection of skin and subcutaneous tissue 04/18/2017 ??? Unspecified staphylococcus as the cause of diseases classified elsewhere 04/18/2017 ??? Chronic atrial fibrillation 04/06/2017 ??? Other specified anemias 04/06/2017 ??? [...] ??? S/P PICC central line placement 02/13/2019 [facility] VAT R basilic ??? Seizures ??? Squamous [...] ABSCESS ??? Tracheostomy N/A 09/13/2017 N/A; TRACHEOSTOMY Lab Results: Invalid input(s): PREGTESTUR LER documented in this encounter Miscellaneous Notes * Anesthesia Transfer of Care - eDidra Felix APRN-WOUND/OSTOMY CLINICAL NURSE SPECIALIST - 07/03/2020 10:32 AM CST ANESTHESIA TRANSFER OF CARE NOTE Today's Date: 07/03/2020 Date of : 1950 Patient: Mason Keys Procedure(s) with comments: ESOPHAGOGASTRODUODENOSCOPY (EGD) DIAGNOSTIC--MICHELLE Weinstein esophageal erythema bx Surgeon(s): Primary: Jackelyn Martinez MD Preop Diagnosis: Pre-op Diagnois: * Liver cirrhosis secondary to RAYGOZA [K75.81, K74.60] * Metabolic syndrome [E88.81] Pre-op Meds (From admission, onward) Start Stop Status Route Frequency Ordered 07/03/20 1030 0.9% NaCl infusion -- Dispensed IV CONTINUOUS 07/03/20 1023 07/03/20 1023 0.9% NaCl injection 3 mL -- Dispensed IK PRE-PROCEDURE MULTIPLE 07/03/20 1023 Post-op Diagnosis: * Liver cirrhosis secondary to RAYGOZA [K75.81, K74.60] * Metabolic syndrome [E88.81] . Allergies Allergen Reactions ??? Penicillins Skin Reactions and Swelling ??? Levaquin [Levofloxacin] Eye Itching red around the eyes , puffy, itchy ??? Scopace [Scopolamine] Other and LOAN SERVICES PROFESSIONAL Dysfunction delirium ??? Tobramycin Eye Itching red around the eyes, puffy, itchy Vitals: Patient Vitals for the past 3 hrs: BP Temp Pulse Resp SpO2 07/03/20 0828 (!) 153/107 98 ??F (36.7 ??C) 86 24 97 % Lines, Drains, and Airways Type Details Placement Removal Enteral - 09/15/17; 914; Dr. Guerra; PEG; Abdomen, Left; Well 09/15/17914 by Denise Damon, DONTAE Peripheral IV Date: 07/03/20; Time: 825; Orientation: Right; Location: Hand; Placed By: Jerri DIGGS; Gauge: 22 Gauge ; Locals: Trans Dermal; Tolerance: Well 07/03/20825 by Susana Tang RN Intraprocedure I/O Totals None Patient Transfer Location: PACU Transport Airway: spontaneous respirations and supplemental O2 Transport Monitoring: heart rate and continuous pulse oximetry Complications: None Handoff Given? Yes Checklist or [...] understanding of report from the receiving PACUteam. SYDNIE Troncoso LER documented in this encounter Plan of Treatment Upcoming Encounters Date Type Department Care Team (Late st Contact Info) Description 07/09/2024 12:30 PM RABBLER Office Visit [facility] - GI [address] [place] [address], [place] [phone] Twin Miller MD [address] [place] [address] [place] [address] 09/19/2024 2:00 PM CDT Office Visit [facility] - Orthopedic Surgery [address] [place] [phone] Larry Alexander MD [address] [facility] [address] [place] [address] documented as of this encounter Goals Goal [...] infusion Intravenous, CONTINUOUS PRN, Starting on Kellen 07/03/20 at 0955, Until Kellen 07/03/20 at 1032, Anesthesia Intra-op $ New Bag/Syringe 07/03/2020 9:55 AM RABBLER glycopyrrolate (ROBINUL) injection Intravenous, PRN, Starting on Kellen 07/03/20 at 1013, Until Kellen 07/03/20 at 1032, Anesthesia Intra-op $ Given 07/03/2020 10:13 AM RABBLER 0.2 mg lidocaine hcl (PF) (XYLOCAINE MPF) 2 % injection Infiltration, PRN, Starting on Kellen 07/03/20 at 1013, Until Kellen 07/03/20 at 1032, Anesthesia Intra-op $ Given 07/03/2020 10:13 AM RABBLER 100 mg propofol (DIPRIVAN) infusion Intravenous, CONTINUOUS PRN, Starting on Kellen 07/03/20 at 1013, Until Kellen 07/03/20 at 1032, Anesthesia Intra-op $ New Bag/Syringe 07/03/2020 10:13 AM RABBLER 165 mcg/kg/min 109.99 mL/hr propofol (DIPRIVAN) injection Intravenous, PRN, Starting on Kellen 07/03/20 at 1013, Until Kellen 07/03/20 at 1032, Anesthesia Intra-op $ Given 07/03/2020 10:18 AM RABBLER 50 mg $ Given 07/03/2020 10:13 AM RABBLER 100 mg documented in this encounter Additional Health Concerns Infection Onset Date Last Indicated Resolved Time 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
--- OUTSIDE RECORDS SUMMARY | 2024-05-24 23:36 | XMS_ITS | Encounter Summary ---
Author Organization [facility] Address [address] [facility] [place] [address] Care Team Providers Care Shipper And Receiving Name Role Phone Briana Medeiros MD Primary Care Provider [phone] Encounter Details Date Type Department Care Team (Late st Contact Info) Description 05/18/2019 Orders Only [facility] - Orthopedics [address] [facility], [facility] [place] [phone] Larry Alexander MD [address] [facility] [address] [place] [address] Surgical follow-up care Social History Tobacco Use Types Packs/Day [...] Contact Info) Description 07/09/2024 12:30 PM PLASTIC FRAME INSERTER Office Visit [facility] - GI [address] [facility], [place] [address] Twin Miller MD [facility] [facility] 2L [place] [address] 09/19/2024 2:00 PM CDT Office Visit [facility] - Orthopedic Surgery [address] [facility] [place] [address] Larry Alexander MD [address] [facility] [address] [place] [address] documented as of this encounter Goals Goal [...] one week prior to your last dose documented as of this encounter Results * XR PELVIS 1 OR 2VW (05/22/2019 9:31 AM PLASTIC FRAME INSERTER) Anatomical Region Laterality Modality Pelvis Radiographic Shama ging 05/22/2019 9:37 AM PLASTIC FRAME INSERTER Impressions 05/22/2019 9:49 AM PLASTIC FRAME INSERTER IMPRESSION: 1.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 Adjacent heterotopic ossification. 2.Left total hip arthroplasty. Dictated by Donnie Carter MD (vice president industrial relations). I, Dr. SILAS NGUYỄN MD have personally reviewed and interpreted this examination/study. This report was electronically signed by SILAS NGUYỄN MD ??on 05/22/2019 9:49 AM . Narrative 05/22/2019 9:49 AM PLASTIC FRAME INSERTER EXAMINATION: XR PELVIS 1 view XR HIP RIGHT 2VW HISTORY: 68-year-old with history of right hip infection and abscess. COMPARISON: Pelvic and right hip radiographs dated 02/27/2019. FINDINGS: Right hip: A total hip arthroplasty is redemonstrated. The prosthesis is intact. There is no periprosthetic lucency. No acute fracture or dislocation is present. Multiple foci of heterotopic ossification are seen around the hip. A skin staple line is noted laterally. Pelvis: There are redemonstration of bilateral total hip arthroplasties. No displaced pelvic fracture is seen. ?? There is redemonstration of heterotopic ossification adjacent to the right hip joint. The pubic symphysis is intact. The sacroiliac joints are normal. There is redemonstration of lower lumbar spondylosis. Procedure Note Silas Nguyễn MD - 05/22/2019 EXAMINATION: XR PELVIS 1 view XR HIP RIGHT 2VW HISTORY: 68-year-old with history of right hip infection and abscess. COMPARISON: Pelvic and right hip radiographs dated 02/27/2019. FINDINGS: Right hip: A total hip arthroplasty is redemonstrated. The prosthesis is intact. There is no periprosthetic lucency. No acute fracture or dislocation is present. Multiple foci of heterotopic ossification are seen around the hip. A skin staple line is noted laterally. Pelvis: There are redemonstration of bilateral total hip arthroplasties. No displaced pelvic fracture is seen. There is redemonstration of heterotopic ossification adjacent to the right hip joint. The pubic symphysis is intact. The sacroiliac joints are normal. There is redemonstration of lower lumbar spondylosis. IMPRESSION: 1.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 Adjacentheterotopic ossification. 2.Left total hip arthroplasty. Dictated by Donnie Carter MD (vice president industrial relations). I, Dr. SILAS NGUYỄN MD have personally reviewed and interpreted this examination/study. This report was electronically signed by SILAS NGUYỄN MD on 05/22/2019 9:49 AM . Larry Alexander MD DIAGNOSTIC IMAGING ORDERABLES * XR HIP RIGHT 2VW OR MORE (05/22/2019 9:31 AM PLASTIC FRAME INSERTER) Anatomical Region Laterality Modality Pelvis, Lower Extremity [facility]ogra [facility] 05/22/2019 9:37 AM PLASTIC FRAME INSERTER Impressions 05/22/2019 9:49 AM PLASTIC FRAME INSERTER IMPRESSION: 1.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 Adjacent heterotopic ossification. 2.Left total hip arthroplasty. Dictated by Donnie Carter MD (vice president industrial relations). I, Dr. SILAS NGUYỄN MD have personally reviewed and interpreted this examination/study. This report was electronically signed by SILAS NGUYỄN MD ??on 05/22/2019 9:49 AM . Narrative 05/22/2019 9:49 AM PLASTIC FRAME INSERTER EXAMINATION: XR PELVIS 1 view XR HIP RIGHT 2VW HISTORY: 68-year-old with history of right hip infection and abscess. COMPARISON: Pelvic and right hip radiographs dated 02/27/2019. FINDINGS: Right hip: A total hip arthroplasty is redemonstrated. The prosthesis is intact. There is no periprosthetic lucency. No acute fracture or dislocation is present. Multiple foci of heterotopic ossification are seen around the hip. A skin staple line is noted laterally. Pelvis: There are redemonstration of bilateral total hip arthroplasties. No displaced pelvic fracture is seen. ?? There is redemonstration of heterotopic ossification adjacent to the right hip joint. The pubic symphysis is intact. The sacroiliac joints are normal. There is redemonstration of lower lumbar spondylosis. Procedure Note Silas Nguyễn MD - 05/22/2019 EXAMINATION: XR PELVIS 1 view XR HIP RIGHT 2VW HISTORY: 68-year-old with history of right hip infection and abscess. COMPARISON: Pelvic and right hip radiographs dated 02/27/2019. FINDINGS: Right hip: A total hip arthroplasty is redemonstrated. The prosthesis is intact. There is no periprosthetic lucency. No acute fracture or dislocation is present. Multiple foci of heterotopic ossification are seen around the hip. A skin staple line is noted laterally. Pelvis: There are redemonstration of bilateral total hip arthroplasties. No displaced pelvic fracture is seen. There is redemonstration of heterotopic ossification adjacent to the right hip joint. The pubic symphysis is intact. The sacroiliac joints are normal. There is redemonstration of lower lumbar spondylosis. IMPRESSION: 1.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 Adjacentheterotopic ossification. 2.Left total hip arthroplasty. Dictated by Donnie Carter MD (vice president industrial relations). I, Dr. SILAS NGUYỄN MD have personally reviewed and interpreted this examination/study. This report was electronically signed by SILAS NGUYỄN MD on 05/22/2019 9:49 AM . 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
--- OUTSIDE RECORDS SUMMARY | 2024-05-24 23:36 | XMS_ITS | Encounter Summary ---
Author Organization [facility] Address [address] [facility] [address] Care Team Providers Care Marine Pilot Name Role Phone Briana Medeiros MD Primary Care Provider [phone] Encounter Details Date Type Department Care Team (Latest Contact Info) Description 06/19/2019 11:59 AM [facility] Hospital Encounter [facility] DIAGNOSTIC RAD [facility] [address] [facility] [address] Larry Alexander MD [address] [facility] [address] [place] [address] Discharge Disposition: Home or Self Care Social [...] mouth once daily tamsulosin (FLOMAX) 0.4 MG capsuleIndications:Ot her cirrhosis of liver (HCC) Take 1 (one) capsule by mouth at bedtime 1 02/08/2018 albuterol (PROVENTIL;VENTOLIN) (5 MG/ML) 0.5% nebulizer solution 2.5 mg. 1 Box 11 09/04/2017 10/12/2023 baclofen (LIORESAL) 10 MG tabletIndications:Oth er cirrhosis of liver (HCC) Take 10 mg [...] by mouth 2 times daily 10/12/2023 doxycycline monohydrate 100 MG capsule Please take 100 mg by mouth twice daily for 2 weeks and then switch to suppression dose of 100 mg daily 57 capsule 05/06/2019 08/28/2019 nystatin (MYCOSTATIN) 373835 UNIT/GM powder Apply to affected area 2 times daily as needed Apply to groin area twice a day as needed. 02/23/2022 omeprazole (PRILOSEC) 40 MG capsule Take 1 (one) capsule by mouth daily before breakfast 10/07/2022 oxyCODONE, immediate release, 10 MG tablet Take 1 tablet by mouth every 4 hours as needed 12 tablet 05/06/2019 02/26/2020 polyethylene glycol 3350 (MIRALAX) packet Take 17 g by mouth once daily 02/15/2019 08/28/2019 potassium chloride ER (KLOR-CON M) 20 MEQ tablet Take 1 (one) tablet by mouth once daily 11/03/2023 PREVIDENT 5000 BOOSTER PLUS 1.1 % as directed 4 10/29/2018 0 PROAIR HFA 108 (90 Base) MCG/ACT inhaler Inhale 2 puffs by mouth every 4 hours as needed 11/06/2018 12/30/2020 Skin Protectants, Misc. (BASIS FACIAL MOISTURIZER) CREAIndications:Local Dryness of Skin,eyes 1 Each by Apply externally route as needed Reasons: Dryness Confined to a Specific area of the Body, eyes 10/12/2023 SYMBICORT 160-4.5 MCG/ACT inhalerIndications:Ot her cirrhosis of liver (HCC) INHALE 2 PUFFS BY MOUTH TWICE A DAY 6 02/01/2018 08/17/2021 tiotropium (SPIRIVA RESPIMAT) 2.5 MCG/ACT inhaler Inhale 2 puffs by mouth once daily 08/17/2021 triamcinolone acetonide (KENALOG) 0.1 % cream Apply to affected area 2 times daily as needed Apply to rash daily as needed. 10/12/2023 vitamin D, ergocalciferol, (DRISDOL) 47718 UNITS capsuleIndications:Ot her cirrhosis of liver (HCC) Take 50,000 Units by mouth every 7 days 0 02/02/2018 03/21/2023 documented as of this encounter Plan of Treatment Upcoming Encounters Date Type Department Care Team (Late st Contact Info) Description 07/09/2024 12:30 PM HEALTH COUNSELOR [facility] [place] [facility] [place] [address] [place] [address], [place] [address] Twin Miller MD [address] [place] [address] [place] [address] 09/19/2024 2:00 PM CDT Office Visit [facility] - Orthopedic Surgery [address] [place] [address] Larry Alexander MD [address] [facility] [address] [place] [address] documented as of this encounter Goals Goal [...] Comments XR PELVIS 1 OR 2VW Routine 06/19/2019 12 :10 PM HEALTH COUNSELOR Surgical follow-up care documented in this encounter Results * XR PELVIS 1 OR 2VW (06/19/2019 12:10 PM HEALTH COUNSELOR) Anatomical Region Laterality Modality Pelvis Radiographic Shama ging 06/19/2019 1:16 PM HEALTH COUNSELOR Impressions 06/19/2019 1:20 PM HEALTH COUNSELOR IMPRESSION: 1.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 Adjacent heterotopic ossification, mildly increased. 2.Left total hip arthroplasty. This report was dictated by John Greene M.D. (financial institution vice president). I, Dr. BANDAR DEE have personally reviewed and interpreted this examination/study. This report was electronically signed by BANDAR DEE ??on 06/19/2019 1:20 PM . Narrative 06/19/2019 1:20 PM HEALTH COUNSELOR EXAMINATION: XR HIP RIGHT 2VW OR MORE, XR PELVIS 1 OR 2VW HISTORY: Z09: Surgical follow-up care COMPARISON: Pelvic and right hip radiographs dated 05/22/2019. FINDINGS: Right hip: A total hip arthroplasty is redemonstrated. The prosthesis is intact. There is no periprosthetic lucency. No new acute fracture or dislocation is present. Multiple foci of heterotopic ossification are seen around the hip, mildly increased from prior radiograph. Pelvis: There are redemonstration of bilateral total hip arthroplasties. No displaced pelvic fracture is seen. There is redemonstration of heterotopic ossification adjacent to the right hip joint, mildly increased from prior radiograph. The pubic symphysis is intact. The sacroiliac joints are normal. There is redemonstration of lower lumbar spondylosis. Procedure Note Bandar Dee, - 06/19/2019 EXAMINATION: XR HIP RIGHT 2VW OR MORE, XR PELVIS 1 OR 2VW HISTORY: Z09: Surgical follow-up care COMPARISON: Pelvic and right hip radiographs dated 05/22/2019. FINDINGS: Right hip: A total hip arthroplasty is redemonstrated. The prosthesis is intact. There is no periprosthetic lucency. No new acute fracture or dislocation is present. Multiple foci of heterotopic ossification are seen aroundthe hip, mildly increased from prior radiograph. Pelvis: There are redemonstration of bilateral total hip arthroplasties. No displaced pelvic fracture is seen. There is redemonstration ofheterotopic ossification adjacent to the right hip joint, mildly increased fromprior radiograph. The pubic symphysis is intact. The sacroiliac joints are normal. There is redemonstration of lower lumbar spondylosis. IMPRESSION: 1.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 Adjacentheterotopic ossification, mildly increased. 2.Left total hip arthroplasty. This report was dictated by John Greene M.D. (financial institution vice president). I, Dr. BANDAR DEE have personally reviewed and interpreted this examination/study. This report was electronically signed by BANDAR DEE on 06/19/2019 1:20 PM . 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
--- OUTSIDE RECORDS SUMMARY | 2024-05-24 23:36 | XMS_ITS | Encounter Summary ---
Author Organization [facility] Address [address] [facility] [place] [address] Care Team Providers Care Tongue And Groove Machine Setter Name Role Phone Briana Medeiros MD Primary Care Provider [phone] Encounter Details Date Type Department Care Team (Late st Contact Info) Description 08/17/2019 Orders Only [facility] - [facility] [address] [place] [phone] Monty Gentile, RN Liver cirrhosis secondary to [...] st Contact Info) Description 07/09/2024 12:30 PM DATA ENTRY Office Visit [facility] [address] [facility], [place] [address] Twin Miller MD [facility] [place] [address] 09/19/2024 2:00 PM CDT Office Visit [facility] - Orthopedic Surgery [address] [facility] [place] [facility] [place] [address] Larry Alexander MD [address] [facility] [address] [place] [address] documented as of this encounter Goals Goal [...] Procedure Name Priority Date/Time Associated Diagnosis Comments DIFFERENTIAL MANUAL REFLXED III 08/20/2019 3:27 PM CDT ALPHA FETOPROTEIN BLOOD TUMOR MARKER Routine 08/20/2019 3:27 PM CDT 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) PT-INR Routine 08/20/2019 3:27 PM CDT 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) CBC W AUTO DIFFERENTIAL Routine 08/20/2019 3:27 PM CDT 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) COMPREHENSIVE METABOLIC PANEL Routine 08/20/2019 3:27 PM CDT 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) documented in this encounter Results * (ABNORMAL) DIFFERENTIAL MANUAL REFLXED III (08/20/2019 [...] perform a manual review. Test Performed at: [facility] [place], [place] ??[phone] ROSS LOPEZ DO,MPH 08/20/2019 3:27 PM CDT 08/20/2019 3:28 PM CDT Jackelyn Licona MD LAB - HEMATOLOGY ORD ERABLES Performing Organization Address City/State/[facility] Co de Phone Number [facility] [address] [place] [address] * PT-INR (08/20/2019 3:27 PM CDT) Pathologist [facility] INR 1.0 [facility] Comment: Reference Range ? 0.9-1.1 Moderate-intensity Warfarin Therapy 2.0-3.0 Higher-intensity Warfarin Therapy ?? 3.0-4.0 PT 9.8 9.0 - 11.5 sec [facility] Comment: For more information on this test, go to: http://education.[employer] Lab/faq/JOR752 Test Performed at: [facility] [place] ??[phone] ROSS LOPEZ DO,MPH Blood BLOOD SPECIMEN / Unknown 08/20/2019 3:27 PM CDT 08/20/2019 3:28 PM CDT Jackelyn Licona MD LAB - COAGULATION OR DERABLES Performing Organization Address [facility] Co de Phone Number [facility] [address] [place] [address] * ALPHA FETOPROTEIN BLOOD TUMOR MARKER (08/20/2019 3:27 PM CDT) [facility] Alpha-Fetoprotei n Tumor Marker 1.5 <6.1 ng/mL [facility] Comment: This test was performed using the Flex Cranks chemiluminescent method. Values obtained from different assay methods cannot be used interchangeably. AFP levels, regardless of value, should not be interpreted as absolute evidence of the presence or absence of disease. Test Performed at: [facility] [id number] [place], [place] ??[phone] ROSS LOPEZ DO,MPH Blood BLOOD SPECIMEN / Unknown 08/20/2019 3:27 PM CDT 08/20/2019 3:28 PM CDT Jackelyn Licona MD LAB - CHEMISTRY ORDE RABLES Performing Organization Address [facility] de Phone Number [facility] [address] [place] [address] * (ABNORMAL) COMPREHENSIVE METABOLIC PANEL (08/20/2019 3:27 PM CDT) [facility] Glucose 83 65 - 99 mg/dL [facility] Comment: ? Fasting reference interval BUN 39(H) 7 - 25 mg/dL [facility] Creatinine 1.51(H) 0.70 - 1.18 mg/dL [facility] Comment: For patients >49 years of age, the reference limit for Creatinine is approximately 13% higher for people identified as -Somali. eGFR by MDRD 46(L) > OR = 60 mL/min/1. 73m2 [facility] eGFR by MDRD 53(L) > OR = 60 mL/min/1. 73m2 [facility] BUN/Creatinine Ratio 26(H) 6 - 22 (calc) [facility] Sodium 140 135 - 146 mmol/L [facility] Potassium 4.4 3.5 - 5.3 mmol/L [facility] Chloride 101 98 - 110 mmol/L [facility] CO2 30 20 - 32 mmol/L [facility] Calcium 9.1 8.6 - 10.3 mg/dL [facility] Protein Total 6.2 6.1 - 8.1 g/dL [facility] Albumin 3.5(L) 3.6 - 5.1 g/dL [facility] Globulin Total 2.7 1.9 - 3.7 g/dL (calc) [facility] Albumin/Globulin Ratio 1.3 1.0 - 2.5 (calc) [facility] Bilirubin Total 0.5 0.2 - 1.2 mg/dL [facility] Alkaline Phosphatase 178(H) 35 - 144 U/L [facility] AST 25 10 - 35 U/L [facility] ALT 62(H) 9 - 46 U/L [facility] Comment: Test Performed at: [facility] [place] ??[phone] ROSS LOPEZ DO,MPH Blood BLOOD SPECIMEN / Unknown 08/20/2019 3:27 PM CDT 08/20/2019 3:28 PM CDT Jackelyn Licona MD LAB - CHEMISTRY ORDE [facility] [address] [place] [address] * (ABNORMAL) CBC WITH DIFFERENTIAL (08/20/2019 3:27 PM CDT) White Blood Cell Count 10.1 3.8 - 10.8 Thousand/u L [facility] RBC 4.39 4.20 - 5.80 Million/uL [facility] Hemoglobin 12.0(L) 13.2 - 17.1 g/dL [facility] Hematocrit 37.4(L) 38.5 - 50.0 % [facility] MCV 85.2 80.0 - 100.0 fL [facility] MCH 27.3 27.0 - 33.0 pg [facility] MCHC 32.1 32.0 - 36.0 g/dL [facility] RDW 14.4 11.0 - 15.0 % [facility] Platelet Count 163 140 - 400 Thousand/u L [facility] MPV 12.8(H) 7.5 - 12.5 fL [facility] Comment: Test Performed at: [facility] [place] ??[phone] ROSS LOPEZ DO,MPH Blood BLOOD SPECIMEN / Unknown 08/20/2019 3:27 PM CDT 08/20/2019 3:28 PM CDT Jackelyn Licona MD LAB - HEMATOLOGY ORD ERABLES [facility] [address] [place] [address] documented in this encounter Visit Diagnoses Diagnosis 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)- Primary Other chronic nonalcoholic liver disease documented in this encounter Additional Health Concerns Infection Onset Date Last Indicated Resolved Time 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
--- OUTSIDE RECORDS SUMMARY | 2024-05-24 23:36 | XMS_ITS | Encounter Summary ---
Author Organization [facility] Address [address] [place] [address] Care Team Providers Care Pipe Joints Supervisor Name Role Phone Briana Medeiros MD Primary Care Provider [phone] Reason for Visit * Reason Comments Pain Hip right hip surg 2018/abscess Encounter Details Date Type Department Care Team (Late st Contact Info) Description 06/19/2019 11:45 AM MIXING ROLL OPERATOR Office Visit [facility] - Orthopedics [address] [facility] [place] [address] Larry Alexander MD [address] [facility] 280 [place], [place] [id number] 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, [...] - Inhaled Oxygen Concentration - - Weight 86.2 kg (190 lb) 06/19/2019 12:23 PM MIXING ROLL OPERATOR Height 180.3 cm (5' 11 ) 06/19/2019 12:23 PM MIXING ROLL OPERATOR Body Mass Index 26.5 06/19/2019 12:23 PM MIXING ROLL OPERATOR documented in this encounter Functional Status [...] this encounter Patient Instructions * Patient Instructions* Reji Darby MD - 06/19/2019 1:27 PM MIXING ROLL OPERATOR - Continue oral antibiotics and local wound care - Follow up in 2 weeks NG ROLL OPERATOR documented in this encounter Progress Notes * Larry Alexander MD - 06/19/2019 1:55 PM CST Patient returns for follow-up and a 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 He denies any pain fevers or chills. He just has 2 punctate areas of drainage. Continues to take doxycycline chronically. Physical exam: Examination of the right hip reveals a proximal one distal punctate area with some serous drainage. He has irritated skin with small maculopapular rash around the incision but the restof the incision has healed. He has no pain with range of motion of the hip with flexion to 90, abduction 10, adduction 10, internal rotation of 10, external rotation of 20. Distally he can dorsiflex and plantar flex his ankle and toes without difficulty. 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 We discussed that the next step would be to completely excise the implants and place an antibiotic cement spacer and discussed the failure rate with this. Since he is not having pain fevers or chills and is not sick from the implant he would like to maintain his implants at this time and continue with his chronic suppression. We will see him back in a couple of weeks to make sure things are not getting worse and if he does have fevers chills or increasing pain he will come to the [facility] Emergency Department. Patient and his understood the treatment plan and all questions were answered. NG ROLL OPERATOR documented in this encounter Plan of Treatment Upcoming Encounters Date Type Department Care Team (Late st Contact Info) Description 07/09/2024 12:30 PM MIXING ROLL OPERATOR Office Visit [facility] - GI [address] [place] [address], [place] [address] Twin Miller MD [address] [place] [address] [place] [address] 09/19/2024 2:00 PM CDT Office Visit [facility] - Orthopedic Surgery [address] [facility] [place] [address] Larry Alexander MD [address] [facility] 280 [place] [address] documented as of this encounter Goals Goal [...] documented as of this encounter Care Teams Pipe Joints Supervisor Relationship Specialty Start Date End Date Briana Medeiros MD [address] [place], [place] [id number] PCP - General 02/15/18 02/22/22 documented as of this encounter
--- OUTSIDE RECORDS SUMMARY | 2024-05-24 23:36 | XMS_ITS | Encounter Summary ---
Author Organization [facility] Address [address] [facility] [place] [address] Care Team Providers Care Chiropractic Assistant Name Role Phone Briana Medeiros MD Primary Care Provider [phone] Reason for Visit * Reason Comments Infectious Disease Follow-up Encounter Details Date Type Department Care Team (Latest Contact Info) Description 10/23/2019 9:52 AM CDT - 10/23/2019 11:59 PM CDT Hospital Encounter Wound Care at [facility] [address] [place] [address] Raysa Nevarez MD [address] [facility] [address] [place], [place] [id number] Discharge Disposition: Home or Self Care Social [...] Sign Reading Time Taken Comments Blood Pressure 134/84 10/23/2019 9:57 AM CDT Pulse 78 10/23/2019 9:57 AM CDT Temperature 36.7 ??C (98.1 ??F) 10/23/2019 9:57 AM CD T Respiratory Rate 20 10/23/2019 9:57 AM CDT Oxygen Saturation - - Inhaled [...] mouth once daily tamsulosin (FLOMAX) 0.4 MG capsuleIndications:Oth er cirrhosis of liver (HCC) Take 1 (one) capsule by mouth at bedtime 1 02/08/2018 albuterol (PROVENTIL;VENTOLIN) (5 MG/ML) 0.5% nebulizer solution 2.5 mg. 1 Box 11 09/04/2017 10/12/2023 baclofen (LIORESAL) 10 MG tabletIndications:Othe r cirrhosis of liver (HCC) Take 10 mg [...] mouth 2 times daily 10/12/2023 nystatin (MYCOSTATIN) 895437 UNIT/GM powder Apply to affected area 2 times daily as needed Apply to groin area twice a day as needed. 02/23/2022 omeprazole (PRILOSEC) 40 MG capsule Take 1 (one) capsule by mouth daily before breakfast 10/07/2022 oxyCODONE, immediate release, 10 MG tablet Take 1 tablet by mouth every 4 hours as needed 12 tablet 05/06/2019 02/26/2020 potassium chloride ER (KLOR-CON M) 20 MEQ [...] the Body, eyes 10/12/2023 SYMBICORT 160-4.5 MCG/ACT inhalerIndications:Oth er cirrhosis of [...] as needed. 10/12/2023 vitamin D, ergocalciferol, (DRISDOL) 65892 UNITS capsuleIndications:Oth er cirrhosis of liver (HCC) Take 50,000 Units by mouth every 7 days 0 02/02/2018 03/21/2023 documented as of this encounter Progress Notes * Raysa Nevarez MD - 10/23/2019 10:00 AM CDT Infectious Disease Progress Note Admit Date: 10/23/2019 9:52 AM Consult date: 10/23/2019 68 year oldmale Clinical Course Seen in [facility] Had some drainage from the right hip Developed periorbital erythema Had drops w tobramycin and likely the cause of the erythema No fever,chills Data 98.1, 78 134/84 18 Exam General appearance: alert, cooperative, no distress Periorbital redness, some scaling, conjunctival edema and some redness Lungs: breath sounds normal and symmetric; no rales or wheezes Heart: regular rhythm, normal S1 and S2, without murmurs, gallops or rubs Abdomen: soft without mass, non-tender, with normal bowel sounds Extremities: right hip incision intact, 2 areas w residual sutures palpable Medications Lines Recent Labs Component Name 08/20/19 1527 05/06/19 0231 05/05/19 0215 05/03/19 0246 WBC 10.1 6.9 - 9.6 HGB 12.0* 10.1* - 11.2* HCT 37.4* 32.6* - 38.1 PLTCOUNT 163 176 157 138* Recent Labs Component Name 08/27/19 1006 08/20/19 1527 05/06/19 0231 SODIUM 141 140 137 POTASSIUM 4.4 4.4 3.2* CHLORIDE 102 101 100 CO2 29 30 26 BUN 35* 39* 22 CREATININE 1.36* 1.51* 1.15 GLUCOSE 91 83 88 CALCIUM 9.5 9.1 9.2 Recent Labs Component Name 08/20/19 1527 05/02/19 0410 04/30/19 0242 ALBUMIN 3.5* 3.6 3.5 ALKPHOS 178* 211* 188* ALT 62* 26 27 AST 25 25 30 TBIL 0.5 1.1 0.5 TPROT 6.2 7.3 6.9 No results for input(s): CK in the last 14775 hours. Recent Labs Component Name 04/24/19 1141 SEDRATE 70* Recent Labs Component Name 04/24/19 1140 08/15/17 0348 08/09/17 0745 CRP 1.41* 4.1* 32.0* No results for input(s): CDIFFTOXINAB in the last 79186 hours. 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, has dermatotilomania --RAYGOZA --periorbital contact dermatitis Plan Continue w doxy daily LAbs in 6 mo May need to have the sutures removed, To see ortho F/u in 1 y D/w Raysa Nevarez MD documented in this encounter Plan of Treatment Upcoming Encounters Date Type Department Care Team (Late st Contact Info) Description 07/09/2024 12:30 PM NEWS BROADCASTER Office Visit [facility] - GI [address] [place] [address], [place] [address] Twin Miller MD [address] [place] [address] [place] [address] 09/19/2024 2:00 PM CDT Office Visit [facility] - Orthopedic Surgery [facility] [place] [phone] Larry Alexander MD [address] [facility] 280 [place] [address] documented as of this encounter Goals Goal [...] documented as of this encounter Care Teams Chiropractic Assistant Relationship Specialty Start Date End Date Briana Medeiros MD [address] [place], [place] [phone] PCP - General 02/15/18 02/22/22 documented as of this encounter
--- OUTSIDE RECORDS SUMMARY | 2024-05-24 23:36 | XMS_ITS | Encounter Summary ---
Author Organization [facility] Address [address] [facility] [place] [address] Care Team Providers Care Quality Control Chemist Name Role Phone Briana Medeiros MD Primary Care Provider [phone] Reason for Visit * Reason Comments LABS ONLY Encounter Details Date Type Department Care Team (Late st Contact Info) Description 08/24/2019 Telephone [facility] - [address] [phone] Monty Gentile, RN LABS ONLY Social History Tobacco Use Types Packs/Day Years [...] Miscellaneous Notes * Telephone Encounter - Monty Gentile, RN - 08/24/2019 2:08 PM CDT Spoke with pt re message from Dr Licona: On Mason's last labs, he had an elevated creatinine from his baseline. ??Let's repeat a BMP early next week to follow the trend. ??If still high, he needs to see his PCP for further management. Discussed with pt, verbalizes understanding of need to have labs repeated early next week. * Telephone Encounter - Monty Gentile RN - 08/24/2019 2:07 PM CDT ----- Message from Jackelyn Licona MD sent at 08/24/2019 12:38 PM CDT ----- Rich, On Mason's last labs, he had an elevated creatinine from his baseline. Let's repeat a BMP early next week to follow the trend. If still high, he needs to see his PCP for further management. Ro ----- Message ----- From: Monty Gentile RN Sent: 08/21/2019 1:38 PM CDT To: Jackelyn Licona MD ----- Message ----- From: [employer], Results In Sent: 08/21/2019 1:20 PM CDT To: Monty Gentile RN documented in this encounter Plan of Treatment Upcoming Encounters Date Type Department Care Team (Late st Contact Info) Description 07/09/2024 12:30 PM FARMWORKER RICE Office Visit [facility] - [facility]5 [facility], [place] [address] Twin Miller MD [address] [place] [address] [place] [address] 09/19/2024 2:00 PM CDT [facility] Visit [facility] - [facility]opedic Surgery [address] [place] [address] Larry Alexander MD [facility] [address] [address] documented as of this encounter Goals Goal [...] documented as of this encounter Care Teams Quality Control Chemist Relationship Specialty Start Date End Date Briana Medeiros MD [address] [place] [address] PCP - General 02/15/18 02/22/22 documented as of this encounter
--- OUTSIDE RECORDS SUMMARY | 2024-05-24 23:36 | XMS_ITS | Encounter Summary ---
Author Organization [facility] Address [address] [facility] [place] [address] Care Team Providers Care Ct Tech Name Role Phone Briana Medeiros MD Primary Care Provider [phone] Encounter Details Date Type Department Care Team (Late st Contact Info) Description 06/15/2019 Orders Only [facility] - Orthopedics [address] [facility] [place] [address] Larry Alexander MD 10[address] [facility] 280 [place] [address] Surgical follow-up care Social History Tobacco Use [...] st Contact Info) Description 07/09/2024 12:30 PM ANALYST PROGRAMMER Office Visit [facility] - GI [address] [facility], [place] [address] Twin Miller MD [facility]5 [facility] 2L DIV [place] [address] 09/19/2024 2:00 PM CDT Office Visit [facility] - Orthopedic Surgery [address] [facility] [place] [phone] Larry Alexander MD 10[address] [facility] 280 [place] [address] documented as of this encounter Goals Goal [...] PELVIS 1 OR 2VW (06/19/2019 12:10 PM ANALYST PROGRAMMER) Anatomical Region Laterality Modality Pelvis Radiographic Shama ging 06/19/2019 1:16 PM ANALYST PROGRAMMER Impressions 06/19/2019 1:20 PM ANALYST PROGRAMMER IMPRESSION: 1.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 Adjacent heterotopic ossification, mildly increased. 2.Left total hip arthroplasty. This report was dictated by John Greene M.D. (supervisor residential). I, Dr. BANDAR DEE have personally reviewed and interpreted this examination/study. This report was electronically signed by BANDAR DEE ??on 06/19/2019 1:20 PM . Narrative 06/19/2019 1:20 PM ANALYST PROGRAMMER EXAMINATION: XR HIP RIGHT 2VW OR MORE, [...] report was dictated by John Greene M.D. (supervisor residential). I, Dr. BANDAR DEE have personally reviewed and interpreted this examination/study. This report was electronically signed by BANDAR DEE on 06/19/2019 1:20 PM . Larry Alexander MD DIAGNOSTIC IMAGING ORDERABLES * XR HIP RIGHT 2VW OR MORE (06/19/2019 12:09 PM ANALYST PROGRAMMER) Anatomical Region Laterality Modality Pelvis, Lower Extremity Radiogra [facility] 06/19/2019 1:16 PM ANALYST PROGRAMMER Impressions 06/19/2019 1:20 PM ANALYST PROGRAMMER IMPRESSION: 1.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 Adjacent heterotopic ossification, mildly increased. 2.Left total hip arthroplasty. This report was dictated by John Greene M.D. (supervisor residential). I, Dr. BANDAR DEE have personally reviewed and interpreted this examination/study. This report was electronically signed by BANDAR DEE ??on 06/19/2019 1:20 PM . Narrative 06/19/2019 1:20 PM ANALYST PROGRAMMER EXAMINATION: XR HIP RIGHT 2VW OR MORE, [...] of lower lumbar spondylosis. Procedure Note Bandar Dee DO - 06/19/2019 EXAMINATION: XR HIP RIGHT 2VW [...] report was dictated by John Greene M.D. (supervisor residential). I, Dr. BANDAR DEE have personally reviewed [...] documented as of this encounter Care Teams Ct Tech Relationship Specialty Start Date End Date Briana Medeiros MD [address] [place], [place] [phone] PCP - General 02/15/18 02/22/22 documented as of this encounter
--- OUTSIDE RECORDS SUMMARY | 2024-05-24 23:36 | XMS_ITS | Encounter Summary ---
Author Organization [facility] Address [address] [facility] [place] [address] Care Team Providers Care Talent Advisor Name Role Phone Briana Medeiros MD Primary Care Provider [phone] Encounter Details Date Type Department Care Team (Latest Contact Info) Description 06/19/2019 11:59 AM [facility] Hospital Encounter [facility] DIAGNOSTIC RAD [facility] [address] [facility] [address] Larry Alexander MD [address] [facility] 280 [place] [address] Discharge Disposition: Home or Self Care Social [...] daily 57 capsule 05/06/2019 08/28/2019 nystatin (MYCOSTATIN) 144716 UNIT/GM powder Apply to affected area 2 [...] as needed. 10/12/2023 vitamin D, ergocalciferol, (DRISDOL) 21443 UNITS capsuleIndications:Ot her cirrhosis of liver (HCC) Take 50,000 Units by mouth every 7 days 0 02/02/2018 03/21/2023 documented as of this encounter Plan of Treatment Upcoming Encounters Date Type Department Care Team (Late st Contact Info) Description 07/09/2024 12:30 PM SUPPLY AND DISTRIBUTION MANAGER [facility] [place] [facility] [place] [address] [place] [address], [place] [address] Twin Miller MD [address] [place] [address] [place] [address] 09/19/2024 2:00 PM CDT Office Visit [facility] - Orthopedic Surgery [address] [place] [address] Larry Alexander MD [address] [facility] 280 [place] [address] documented as of this encounter Goals Goal [...] XR HIP RIGHT 2VW OR MORE Routine 06/19/2019 12:09 PM SUPPLY AND DISTRIBUTION MANAGER Surgical follow-up care documented in this encounter Results * XR HIP RIGHT 2VW OR MORE (06/19/2019 12:09 PM SUPPLY AND DISTRIBUTION MANAGER) Anatomical Region Laterality Modality Pelvis, Lower Extremity Radiogra [facility] 06/19/2019 1:16 PM SUPPLY AND DISTRIBUTION MANAGER Impressions 06/19/2019 1:20 PM SUPPLY AND DISTRIBUTION MANAGER IMPRESSION: 1.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 Adjacent heterotopic ossification, mildly increased. 2.Left total hip arthroplasty. This report was dictated by John Greene M.D. (residential child care counselor). I, Dr. FILI DEE have personally reviewed and interpreted this examination/study. This report was electronically signed by FILI DEE ??on 06/19/2019 1:20 PM . Narrative 06/19/2019 1:20 PM SUPPLY AND DISTRIBUTION MANAGER EXAMINATION: XR HIP RIGHT 2VW OR MORE, [...] redemonstration of lower lumbar spondylosis. Procedure Note Fili Dee, DO - 06/19/2019 EXAMINATION: XR HIP RIGHT [...] was dictated by John Greene M.D. (residential child care counselor). I, Dr. FILI DEE have personally reviewed and interpreted this examination/study. This report was electronically signed by FILI DEE on 06/19/2019 1:20 PM . 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
--- OUTSIDE RECORDS SUMMARY | 2024-05-24 23:36 | XMS_ITS | Encounter Summary ---
Author Organization [facility] Address [address] [facility] [place] [address] Care Team Providers Care File Machine Operator Name Role Phone Briana Medeiros MD Primary Care Provider [phone] Encounter Details Date Type Department Care Team (Late st Contact Info) Description 01/02/2020 Orders Only [facility] - Orthopedics [address] [place] [address], [place] [address] Ronald Murray MD [address] [place] [address] [place] [address] Back pain, unspecified back location, unspecified back pain laterality, unspecified chronicity Social History Tobacco Use Types [...] st Contact Info) Description 07/09/2024 12:30 PM BRAND PROTECTION MANAGER Office Visit [facility] - GI [address] [facility], [place] [address] Twin Miller MD [facility]5 [facility] 2L [place] [address] 09/19/2024 2:00 PM CDT Office Visit [facility] - Orthopedic Surgery [address] [place] [address] Larry Alexander MD 10[address] [facility] 280 [place] [address] documented as of this encounter Goals Goal [...] as of this encounter Results * XR THORACIC SPINE 2VW (01/03/2020 12:39 PM CDT) Anatomical Region Laterality Modality Spine Radiographic Shama ging 01/03/2020 1:03 PM CDT Impressions 01/03/2020 1:07 PM CDT Impression: 1. Compression deformity of a lower thoracic vertebral body, difficult to compare to prior CT due to different techniques and is age-indeterminate. Correlate with focal tenderness. This report was electronically signed by EVELIA LÓPEZ ??on 01/03/2020 1:07 PM . Narrative 01/03/2020 1:07 PM CDT Examination: XR THORACIC SPINE 2VW History:Back pain Findings: No comparisons are available. The chest radiograph dated 12/24/2019, chest CT dated 09/07/2017, abdomen and pelvis CT dated 12/24/2023 were reviewed. The superior thoracic spine is not well evaluated due to overlying soft tissues. There is a compression deformity of the lower thoracic spine with approximately 50 percent loss of body height. There is thoracic hyperkyphosis. Alignment is normal. There is multilevel moderate to severe degenerative disc disease. Procedure Note Evelia López MD - 01/03/2020 Examination: XR THORACIC SPINE 2VW History:Back pain Findings: No comparisons are available. The chest radiograph dated 12/24/2019, chest CT dated 09/07/2017, abdomen and pelvis CT date12/24/2023 were reviewed. The superior thoracic spine is not well evaluated due to overlying soft tissues. There is a compression deformity of the lower thoracic spinewith approximately 50 percent loss of body height. There is thoracic hyperkyphosis. Alignment is normal. There is multilevel moderate tosevere degenerative disc disease. Impression: 1. Compression deformity of a lower thoracic vertebral body, difficultto compare to prior CT due to different techniques and isage-indeterminate. Correlate with focal tenderness. This report was electronically signed by EVELIA LÓPEZ on 01/03/2020 1:07PM . 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
--- OUTSIDE RECORDS SUMMARY | 2024-05-24 23:36 | XMS_ITS | Encounter Summary ---
Author Organization [facility] Address [address] [place] [address] Care Team Providers Care Senior Electrical Estimator Name Role Phone Briana Medeiros MD Primary Care Provider Reason for Visit * Reason Comments Pain Back Encounter Details Date Type Department Care Team (Late st Contact Info) Description 01/03/2020 12:45 PM CDT Office Visit [facility] - Orthopedics [address] [place] [address], [place] [address] Ronald Murray MD [address] [place] [address] [place] [address] T12 compression fracture, sequela (Primary Dx) Social History Tobacco Use Types [...] - Inhaled Oxygen Concentration - - Weight 112 kg (247 lb) 01/03/2020 12:52 PM CDT i n back brace Height 175.3 cm (5' 9 ) 01/03/2020 12:52 PM CDT Body Mass Index 36.48 01/03/2020 12:52 PM CDT documented in this encounter Functional [...] this encounter Patient Instructions * Patient Instructions* Paige Salgado RN - 01/03/2020 1:51 PM CDT [facility] Department of Orthopaedic Surgery Orthopaedic Spine Clinic Discharge Form Mason Keys 01/03/2020 Thank you for coming in to see us today for your diagnosis of: XR THORACIC SPINE 2VW Recommended Treatment: No new recommendations at this time Continue wearing back brace for support Please follow-up in 1 month Mr. Keys had a clinic appointment on 01/03/2020. Please call Yudy Markham RN, at [phone] with any questions or concerns. documented in this encounter Progress Notes * Ronald Murray MD - 01/04/2020 5:14 AM CDT Chief complaint spine fracture after fall History of present illness Mr. Mason Keys is a 69-year-old male who was referred by his primary care physician for consideration of kyphoplasty after sustaining a fall and being told that he has a T12 fracture. Mr. Keys has a rather complicated history. The events surrounding this included the fact that on December 19 he was walking in his home. He felt his knee buckle and he fell hitting his head on the piano bench. He waited for several days to be seen and was eventually seen at [facility]. He had a large ecchymosis due to his blood thinners. He was evaluated and told that he had a T12 fracture. He was treated with a brace and analgesics. There is significant difficulty trying to c ontrol his pain. He was then referred to his primary care physician who provided him with deipdnueq15 mg/325 mg tablets. He was then told he should seek evaluation by me for consideration of possible kyphoplasty. He presents with his at this time for this discussion. Past medical history patient has an extremely complex and complicated past medical history. He has a history of liver cirrhosis severe chronic obstructive pulmonary disease and atrial fibrillation requires his blood thinners. He has a history of several MRSA infections. He was seen at [facility] in 2018 for an MRI so infection of his spine which required an anterior interbody fusion at L1-2. 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 This has since been excised and he is being treated with chronic doxycycline. He has history is of these MRSA infections and VRE infections. He has multiple medication allergies and has multiple home medications at this time. The patient is currently in a brace for his back and is feeling better. Physical examination reveals a 69-year-old morbidly obese male in no acute distress. He is in a wheelchair. Patient is in no acute distress. Patient is barely able to stand on his own. With this he needs to stand with using his hands to hold onto other things. This is because of the weakness in hislegs from his previous surgeries. The patient has antigravity quadriceps. I would rate this at least 4 or 5. He appears to have symmetric plantar flexion and dorsiflexion strength at his ankles bilaterally again this is at least 4 or 5. He has no clonus. He has intact sensation to light touch. Hisback is nontender to palpation Radiographs of the patient's thoracic spine taken on this date show a thoracolumbar kyphosis and several levels of degeneration and some old compression deformities. None of these are severe and noneof these appear to be acute. Review of the patient's MRI from [facility] shows no evidence of acute fracture in the area his lumbar spine he appears to have an old T12 compression deformity. Impression: Old T12 compression deformity 2. History of multiple different surgical site infections3. Multiple medical comorbidities Plan: This patient is currently doing satisfactory in his brace. He does not have an acute fracturethat I can identify. Patient has a history of multiple infections. We will continue to treat him non operatively for his old compression fracture. Will follow up with him in 1 month. At that time a repeat AP and lateral thoracic spine radiograph as well as an repeat AP and lateral lumbar spine radiograph will be obtained. This dictation was created by using [employer] Fluency Direct. Please excuse any hairspring staker errors. Ronald Murray MD documented in this encounter Plan of Treatment Upcoming Encounters Date Type Department Care Team (Late st Contact Info) Description 07/09/2024 12:30 PM CURTAIN HEMMER AUTOMATIC Office Visit [facility] - GI [address] [facility], [place] [address] Twin Miller MD [facility] OF [place] [address] 09/19/2024 2:00 PM CDT Office Visit [facility] - Orthopedic Surgery [address] [place] [address] Larry Alexander MD 10[address] [facility] 280 [place] [address] documented as of this encounter Goals Goal [...] as of this encounter Visit Diagnoses Diagnosis T12 compression fracture, sequela- Primary documented in this encounter Additional Health Concerns Infection Onset Date Last Indicated Resolved Time MRSA 09/12/2017 04/29/2019 10/17/2023 8:34 AM CDT 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
--- OUTSIDE RECORDS SUMMARY | 2024-05-24 23:36 | XMS_ITS | Encounter Summary ---
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 He underwent repeat irrigation and debridement of a superficial abscess with repeat closure. He continues to take doxycycline. He denies fevers chills or any wound problems. He is here today for suture and staple removal. His pain is much improved. Physical exam: Examination of the patient reveals a healed scar with sutures and diogenes in place. Dressing is dry. There is no active drainage. I can flex him to 90, 80 adduction 20, adduction 10, internal rotation of 20, external rotation of 30 with no pain. Distally he can dorsiflex and plantar flex both ankles and toes without difficulty. X-rays: AP pelvis and AP and lateral the right hip reveal a well-aligned right hip arthroplasty with some heterotopic bone formation without apparent complication Assessment: Status post revision right hip arthroplasty for infection with MRSA and recent repeat irrigation and debridement for draining wound with superficial abscess Plan: We will get out the sutures and diogenes today. We discussed continuing the antibiotic suppression. We will see him back in 3 months. He will keep the wound covered for the next couple of days. He will call us if there is any further drainage. Patient understood the treatment plan and all questions were answered. INE DEBURRER documented in this encounter Plan of Treatment Upcoming Encounters Date Type Department Care Team (Late st Contact Info) Description 07/09/2024 12:30 PM MACHINE DEBURRER Office Visit [facility] - GI [address] [place] [address], [place] [address] Twin Miller MD [address] [place] [address] [place] [address] 09/19/2024 2:00 PM CDT Office Visit [facility] - Orthopedic Surgery [facility] [place] [phone] Larry Alexander MD [address] [facility] 280 [place] [address] documented as of this encounter Goals Goal [...] last dose documented as of this encounter Visit Diagnoses Diagnosis 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
--- OUTSIDE RECORDS SUMMARY | 2024-05-24 23:36 | XMS_ITS | Encounter Summary ---
Author Organization [facility] Address [address] [facility] [place] [address] Care Team Providers Care Hyperion Developer Name Role Phone Briana Medeiros MD Primary Care Provider [phone] Encounter Details Date Type Department Care Team (Late st Contact Info) Description 02/07/2020 1:06 PM CDT Hospital Encounter [facility] DIAGNOSTIC RAD [facility] 1L [address] [facility] [place] [phone] Ronald Murray MD [facility]5 [facility] [place] [address] Discharge Disposition: Home or Self Care Social [...] MG) BY ORAL ROUTE DAILY 11/28/2019 10/21/2020 HYDROcodone-acetaminop hen (NORCO) 10-325 MG tablet 12/31/2019 02/26/2020 nystatin (MYCOSTATIN) 609441 UNIT/GM powder Apply to affected area 2 [...] as needed. 10/12/2023 vitamin D, ergocalciferol, (DRISDOL) 84160 UNITS capsuleIndications:Oth er cirrhosis of liver (HCC) Take 50,000 Units by mouth every 7 days 0 02/02/2018 03/21/2023 documented as of this encounter Plan of Treatment Upcoming Encounters Date Type Department Care Team (Late st Contact Info) Description 07/09/2024 12:30 PM FUR EXAMINER Office Visit [facility] - [address] [place] [phone] ElbeTwin craven MD [address] [place] [address] 09/19/2024 2:00 PM CDT Office Visit [facility] - Orthopedic Surgery [address] [place] [phone] Larry Alexander MD 1031 [facility] 280 [place] [address] documented as of this encounter Goals Goal [...] Name Priority Date/Time Associated Diagnosis Comments XR THORACIC SPINE 2VW Routine 02/07/2020 1:20 PM CDT Back pain, unspecified back location, unspecified back pain laterality, unspecified chronicity documented in this encounter Results * XR THORACIC SPINE 2VW (02/07/2020 1:20 PM CDT) Anatomical Region Laterality Modality Spine Radiographic Shama ging 02/07/2020 1:32 PM CDT Impressions 02/07/2020 1:38 PM CDT Impression: 1. Unchanged interbody fusion of L1-L2 with mild to moderate multilevel thoracal lumbar degenerative disc disease, greatest and moderate to severe at L4-L5. 2. Unchanged mild anterior wedging of T12. This report was electronically signed by EVELIA LÓPEZ ??on 02/07/2020 1:38 PM . Narrative 02/07/2020 [...] The aorta is atherosclerotic. Procedure Note Evelia López MD - 02/07/2020 Examination: XR THORACIC SPINE [...] was electronically signed by EVELIA LÓPEZ on 02/07/2020 1:38 PM. Ronald Murray MD [...] documented as of this encounter Care Teams Hyperion Developer Relationship Specialty Start Date End Date Briana Medeiros MD [address] [place], [place] [phone] PCP - General 02/15/18 02/22/22 documented as of this encounter
--- OUTSIDE RECORDS SUMMARY | 2024-05-24 23:36 | XMS_ITS | Encounter Summary ---
Author Organization [facility] Address [address] [facility] [place] [address] Care Team Providers Care Mine Car Mechanic Name Role Phone Briana Medeiros MD Primary Care Provider [phone] Encounter Details Date Type Department Care Team (Late st Contact Info) Description 08/24/2019 Orders Only [facility] - GI [address] [place] [phone] Monty Gentile, RN Liver cirrhosis secondary to [...] st Contact Info) Description 07/09/2024 12:30 PM DESKTOP SUPPORT CONSULTANT Office Visit [facility] - GI [address] [facility], [place] [address] Twin Miller MD [facility] [place] [address] 09/19/2024 2:00 PM CDT Office Visit [facility] - Orthopedic Surgery [address] [facility] [place] [address] Larry Alexander MD [address] [facility] 280 [place] [address] documented as of this encounter Goals Goal [...] Procedure Name Priority Date/Time Associated Diagnosis Comments BASIC METABOLIC PANEL (CALCIUM TOTAL) Routine 08/27/2019 10:06 AM CDT 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) documented in this encounter Results * (ABNORMAL) BASIC METABOLIC PANEL (CALCIUM TOTAL) (08/27/2019 10:06 AM CDT) Glucose 91 65 - 99 mg/dL [facility] Comment: ? Fasting reference interval BUN 35(H) 7 - 25 mg/dL [facility] Creatinine 1.36(H) 0.70 - 1.18 mg/dL [facility] Comment: For patients >49 years of age, the reference limit for Creatinine is approximately 13% higher for people identified as -Macedonian. eGFR by MDRD 52(L) > OR = 60 mL/min/1. 73m2 [facility] eGFR by MDRD 61 > OR = 60 mL/min/1. 73m2 [facility] BUN/Creatinine Ratio 26(H) 6 - 22 (calc) [facility] Sodium 141 135 - 146 mmol/L [facility] Potassium 4.4 3.5 - 5.3 mmol/L [facility] Chloride 102 98 - 110 mmol/L [facility] CO2 29 20 - 32 mmol/L [facility] Calcium 9.5 8.6 - 10.3 mg/dL [facility] Comment: Test Performed at: [facility] [address] [place], [place] ??[id number] ROSS LOPEZ DO,MPH Blood BLOOD SPECIMEN / Unknown 08/27/2019 10:06 AM CDT 08/27/2019 10:06 AM CDT Jackelyn Licona MD LAB - CHEMISTRY ROYCE K[facility] [place] Organization Address City/State/ZIP Co de Phone Number [facility] [address] [place] [address] documented in this encounter Visit Diagnoses Diagnosis 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)- Primary Other chronic nonalcoholic liver disease documented in this encounter Additional Health Concerns Infection Onset Date Last Indicated Resolved Time 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
--- OUTSIDE RECORDS SUMMARY | 2024-05-24 23:36 | XMS_ITS | Encounter Summary ---
Author Organization [facility] Address [address] [place] [address] Care Team Providers Care Cornetist Name Role Phone Briana Medeiros MD Primary Care Provider [phone] Encounter Details Date Type Department Care Team (Latest Contact Info) Description 05/22/2019 9:21 AM CUTTING DEPARTMENT SUPERVISOR - 05/22/2019 11:59 PM [facility] Hospital Encounter [facility] DIAGNOSTIC RAD [facility] [address] [facility] [place] [address] Larry Alexander MD 10[address] [facility] [address] [place], [place] [phone] Discharge Disposition: Home or Self Care Social [...] daily 57 capsule 05/06/2019 08/28/2019 nystatin (MYCOSTATIN) 612800 UNIT/GM powder Apply to affected area 2 [...] as needed. 10/12/2023 vitamin D, ergocalciferol, (DRISDOL) 60004 UNITS capsuleIndications:Ot her cirrhosis of liver (HCC) Take 50,000 Units by mouth every 7 days 0 02/02/2018 03/21/2023 documented as of this encounter Plan of Treatment Upcoming Encounters Date Type Department Care Team (Late st Contact Info) Description 07/09/2024 12:30 PM CUTTING DEPARTMENT SUPERVISOR Office Visit [facility] [address] [place] [address], [place] [phone] Twin Miller MD [address] [place] [address] [place] [address] 09/19/2024 2:00 PM CDT Office Visit [facility] - Orthopedic Surgery [address] [facility] [place] [phone] Larry Alexander MD [address] [place] [address] documented as of this encounter Goals Goal [...] last dose documented as of this encounter Procedures Procedure Name Priority Date/Time Associated Diagnosis Comments XR HIP RIGHT 2VW OR MORE Routine 05/22/2019 9:31 AM CUTTING DEPARTMENT SUPERVISOR Surgical follow-up care documented in this encounter Results * XR HIP RIGHT 2VW OR MORE (05/22/2019 9:31 AM CUTTING DEPARTMENT SUPERVISOR) Anatomical Region Laterality Modality Pelvis, Lower Extremity [facility] 05/22/2019 9:37 AM CUTTING DEPARTMENT SUPERVISOR Impressions 05/22/2019 9:49 AM CUTTING DEPARTMENT SUPERVISOR IMPRESSION: 1.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 Adjacent heterotopic ossification. 2.Left total hip arthroplasty. Dictated by Donnie Carter MD (radiology director). I, Dr. SILAS NGUYỄN MD have personally reviewed and interpreted this examination/study. This report was electronically signed by SILAS NGUYỄN MD ??on 05/22/2019 9:49 AM . Narrative 05/22/2019 9:49 AM CUTTING DEPARTMENT SUPERVISOR EXAMINATION: XR PELVIS 1 view XR HIP [...] hip arthroplasty. Dictated by Donnie Carter MD (radiology director). I, Dr. SILAS NGUYỄN MD have personally [...] documented as of this encounter Care Teams Cornetist Relationship Specialty Start Date End Date Briana Medeiros MD [address] [place] [address] PCP - General 02/15/18 02/22/22 documented as of this encounter
--- OUTSIDE RECORDS SUMMARY | 2024-05-24 23:36 | XMS_ITS | Encounter Summary ---
Author Organization [facility] Address [address] [facility] [place] [address] Care Team Providers Care Converter Operator Name Role Phone Briana Medeiros MD Primary Care Provider [phone] Reason for Referral * Radiology Services (Routine) - Closed Specialty Diagnoses / Procedures Referred By Contac t Referred To Contact Ultrasound Diagnoses 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) Metabolic syndrome Procedures US ABDOMEN LIMITED Jackelyn Licona MD [address] [place] [address] [address] Referral ID Status Reason Start Date Expiration Date Visits Re quested Visits Authorized [id number] Closed 05/07/2019 11/03/2019 1 1 TURBINE SERVICE TECHNICIAN Reason for Visit * Radiology Services (Routine) - Closed Specialty Diagnoses / Procedures Referred By Contac t Referred To Contact Ultrasound Diagnoses 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) Metabolic syndrome Procedures US ABDOMEN LIMITED Jackelyn Licona MD [address] [place] [address] [address] [place] [address] Referral ID Status Reason Start Date Expiration Date Visits Re quested Visits Authorized [id number] Closed 05/07/2019 11/03/2019 1 1 Encounter Details Date Type Department Care Team (Late st Contact Info) Description 05/16/2019 8:38 AM WIND TURBINE SERVICE TECHNICIAN - 05/16/2019 11:59 PM WIND TURBINE SERVICE TECHNICIAN Hospital Encounter [facility] [address] [place] [address] Jackelyn Licona MD [address] [place] [address] Discharge Disposition: Home or Self Care Social [...] daily 57 capsule 05/06/2019 08/28/2019 nystatin (MYCOSTATIN) 300691 UNIT/GM powder Apply to affected area 2 [...] as needed. 10/12/2023 vitamin D, ergocalciferol, (DRISDOL) 04685 UNITS capsuleIndications:Ot her cirrhosis of liver (HCC) Take 50,000 Units by mouth every 7 days 0 02/02/2018 03/21/2023 documented as of this encounter Plan of Treatment Upcoming Encounters Date Type Department Care Team (Late st Contact Info) Description 07/09/2024 12:30 PM WIND TURBINE SERVICE TECHNICIAN Office Visit [facility] - GI [address] [place] [address], [place] [address] Twin Miller MD [address] [place] [address] [place] [address] 09/19/2024 2:00 PM CDT Office Visit [facility] - Orthopedic Surgery [facility] [place] [address] Vandana Alexander MD [address] [place] [address] documented as of this encounter Goals Goal [...] Associated Diagnosis Comments US ABDOMEN LIMITED Routine 05/16/2019 9: 16 AM WIND TURBINE SERVICE TECHNICIAN 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) Metabolic syndrome documented in this encounter Results * US ABDOMEN LIMITED (05/16/2019 9:16 AM WIND TURBINE SERVICE TECHNICIAN) Anatomical Region Laterality Modality Abdomen Ultrasound 05/16/2019 9:05 AM WIND TURBINE SERVICE TECHNICIAN Impressions 05/16/2019 9:10 AM WIND TURBINE SERVICE TECHNICIAN IMPRESSION: 1. Hepatic cirrhosis. No discrete hepatic lesion or biliary dilatation. 2. Cholelithiasis without evidence of acute cholecystitis. Dictated by Jay Bowens MD (residential driver) I, Dr. VANDANA HENSLEY M.D. have personally reviewed and interpreted this examination/study. This report was electronically signed by VANDANA HENSLEY M.D. ??on 05/16/2019 9:10 AM . Narrative 05/16/2019 9:10 AM WIND TURBINE SERVICE TECHNICIAN EXAMINATION: Limited abdominal sonogram HISTORY: 68-year-old male with cirrhosis, HCC screening COMPARISON: Limited abdominal sonogram dated 11/06/2018 FINDINGS: Hepatic echotexture is coarsened with a nodular surface, consistent with cirrhosis. No discrete hepatic mass or intrahepatic biliary dilation is seen. Multiple stones with posterior acoustic shadowing are seen in the dependent portion of the gallbladder lumen. No pericholecystic fluid is present. The gallbladder wall is normal in thickness, measuring 3 mm. Sonographic Maria's sign is negative. The common bile duct is mildly dilated measuring 8 mm. The right kidney measures 9.9 x 4.3 x 4.9 cm. Limited views of the right kidney reveal no evidence of nephrolithiasis or hydronephrosis. The spleen measures 12.7 cm in length. The visible pancreas is normal in echogenicity. No ascites is present. Procedure Note Vandana Hensley MD - 05/16/2019 EXAMINATION: Limited abdominal sonogram HISTORY: 68-year-old male with cirrhosis, HCC screening COMPARISON: Limited abdominal sonogram dated 11/06/2018 FINDINGS: Hepatic echotexture is coarsened with a nodular surface, consistent with cirrhosis. No discrete hepatic mass or intrahepatic biliary dilation is seen. Multiple stones with posterior acoustic shadowing are seen in the dependent portion of the gallbladder lumen. No pericholecystic fluid is present. The gallbladder wall is normal in thickness, measuring 3 mm. Sonographic Maria's sign is negative. The common bile duct is mildly dilated measuring 8 mm. The right kidney measures 9.9 x 4.3 x 4.9 cm. Limited views of the right kidney reveal no evidence of nephrolithiasis or hydronephrosis. Thespleen measures 12.7 cm in length. The visible pancreas is normal in echogenicity. No ascites is present. IMPRESSION: 1. Hepatic cirrhosis. No discrete hepatic lesion or biliary dilatation. 2. Cholelithiasis without evidence of acute cholecystitis. Dictated by Jay Bowens MD (residential driver) I, Dr. VANDANA HENSLEY M.D. have personally reviewed and interpreted this examination/study. This report was electronically signed by VANDANA HENSLEY M.D. on 05/16/2019 9:10 AM . Jackelyn Licona MD ORDERABLES documented [...] documented as of this encounter Care Teams Converter Operator Relationship Specialty Start Date End Date Briana Medeiros MD [address] [place] [address] PCP - General 02/15/18 02/22/22 documented as of this encounter
--- OUTSIDE RECORDS SUMMARY | 2024-05-24 23:36 | XMS_ITS | Encounter Summary ---
Author Organization [facility] Address [address] [place] [address] Care Team Providers Care Ecdis N Navigation Operator Name Role Phone Briana Medeiros MD Primary Care Provider [phone] Encounter Details Date Type Department Care Team (Late st Contact Info) Description 02/06/2020 Orders Only [facility] - Orthopedics [address] [place] [address], [place] [address] Ronald Murray MD [address] [place] [address] [place] [address] Arthralgia of hip, unspecified laterality ; Back pain, unspecified back location, unspecified back [...] st Contact Info) Description 07/09/2024 12:30 PM MANUFACTURING ENGINEERING TECHNOLOGIST Office Visit [facility] - GI [address] [facility], [place] [address] Twin Miller MD [facility] [facility] 2L [place] [address] 09/19/2024 2:00 PM CDT Office Visit [facility] - Orthopedic Surgery [address] [place] [phone] Larry Alexander MD [address] [facility] [address] [place] [address] documented as of this encounter Goals Goal [...] 2 OR 3VW (02/07/2020 1:19 PM CDT) Anatomical Region Laterality Modality Spine [...] Diagnosis Arthralgia of hip, unspecified laterality- Primary Back pain, unspecified back location, unspecified back pain laterality, unspecified chronicity Back pain, unspecified back location, unspecified back pain laterality, unspecified chronicity Back pain, unspecified back location, unspecified back pain laterality, unspecified chronicity documented in this encounter Additional Health Concerns Infection Onset Date Last Indicated Resolved Time 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
--- OUTSIDE RECORDS SUMMARY | 2024-05-24 23:36 | XMS_ITS | Encounter Summary ---
Author Organization [facility] Address [address] [facility] [place] [address] Care Team Providers Care Medical Record Technician Name Role Phone Briana Medeiros MD Primary Care Provider [phone] Encounter Details Date Type Department Care Team (Latest Contact Info) Description 05/22/2019 9:20 AM [facility] Hospital Encounter [facility] [address] [facility] [place] [address] Larry Alexander MD [address] [facility] [address] [place] [address] Discharge Disposition: Home or Self Care Social [...] daily 57 capsule 05/06/2019 08/28/2019 nystatin (MYCOSTATIN) 093054 UNIT/GM powder Apply to affected area 2 [...] as needed. 10/12/2023 vitamin D, ergocalciferol, (DRISDOL) 24787 UNITS capsuleIndications:Ot her cirrhosis of liver (HCC) Take 50,000 Units by mouth every 7 days 0 02/02/2018 03/21/2023 documented as of this encounter Plan of Treatment Upcoming Encounters Date Type Department Care Team (Late st Contact Info) Description 07/09/2024 12:30 PM IN STORE MARKETING REPRESENTATIVE [place] [facility] [place] [address] [place] [address], [place] [address] Twin Miller MD [address] [place] [address] [place] [address] 09/19/2024 2:00 PM CDT Office Visit [facility] - Orthopedic Surgery [address] [place] [address] Larry Alexander MD [address] [facility] [address] [place] [address] documented as of this encounter Goals Goal [...] Comments XR PELVIS 1 OR 2VW Routine 05/22/2019 9: 31 AM IN STORE MARKETING REPRESENTATIVE Surgical follow-up care documented in this encounter Results * XR PELVIS 1 OR 2VW (05/22/2019 9:31 AM IN STORE MARKETING REPRESENTATIVE) Anatomical Region Laterality Modality Pelvis Radiographic Shama ging 05/22/2019 9:37 AM IN STORE MARKETING REPRESENTATIVE Impressions 05/22/2019 9:49 AM IN STORE MARKETING REPRESENTATIVE IMPRESSION: 1.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 Adjacent heterotopic ossification. 2.Left total hip arthroplasty. Dictated by Donnie Carter MD (residential treatment staff). I, Dr. SILAS NGUYỄN MD have personally reviewed and interpreted this examination/study. This report was electronically signed by SILAS NGUYỄN MD ??on 05/22/2019 9:49 AM . Narrative 05/22/2019 9:49 AM IN STORE MARKETING REPRESENTATIVE EXAMINATION: XR PELVIS 1 view XR HIP [...] hip arthroplasty. Dictated by Donnie Carter MD (residential treatment staff). I, Dr. SILAS NGUYỄN MD have personally [...] documented as of this encounter Care Teams Medical Record Technician Relationship Specialty Start Date End Date Briana Medeiros MD [address] [place] [address] PCP - General 02/15/18 02/22/22 documented as of this encounter
--- OUTSIDE RECORDS SUMMARY | 2024-05-24 23:36 | XMS_ITS | Encounter Summary ---
Author Organization [facility] Address [address] [place] [address] Care Team Providers Care Adjunct Lecturer Name Role Phone Briana Medeiros MD Primary Care Provider [phone] Reason for Visit * Reason Comments Results US Encounter Details Date Type Department Care Team ([facility] Contact Info) Description 05/16/2019 Telephone [facility] - [address] [phone] Mnoty Gentile, RN Results (US) Social History Tobacco Use Types Packs/Day Years [...] Telephone Encounter - Monty Gentile, RN - 05/16/2019 10:19 AM ELECTRONIC INDUSTRIAL CONTROLS MECHANIC Spoke with pt re: result of US and message from Dr Licona. Verbalizes understanding of same. Next appt confirmed with pt TRONIC INDUSTRIAL CONTROLS MECHANIC * Telephone Encounter - Monty Gentile, RN - 05/16/2019 10:18 AM ELECTRONIC INDUSTRIAL CONTROLS MECHANIC ----- Message from Jackelyn Licona MD sent at 05/16/2019 10:08 AM ELECTRONIC INDUSTRIAL CONTROLS MECHANIC ----- Rich, Can you let Mason know that his US shows cirrhosis but no masses suggestive of HCC? Plan to repeatagain in 6 months. Thanks. Ro ----- Message ----- From: Results Interface, Radiology In Sent: 05/16/2019 9:16 AM ELECTRONIC INDUSTRIAL CONTROLS MECHANIC To: Jackelyn Licona MD TRONIC INDUSTRIAL CONTROLS MECHANIC documented in this encounter Plan of Treatment Upcoming Encounters Date Type Department Care Team (Late st Contact Info) Description 07/09/2024 12:30 PM ELECTRONIC INDUSTRIAL CONTROLS MECHANIC Office Visit [facility] - GI [address] [place] [address], [place] [address] Twin Miller MD [address] [place] [address] [place] [address] 09/19/2024 2:00 PM CDT Office Visit [facility] - Orthopedic Surgery [address] [place] [phone] Larry Alexander MD [address] [facility] [address] [place] [address] documented as of this encounter Goals Goal [...] documented as of this encounter Care Teams Adjunct Lecturer Relationship Specialty Start Date End Date Briana Medeiros MD [address] [place], [place] [id number] PCP - General 02/15/18 02/22/22 documented as of this encounter
--- OUTSIDE RECORDS SUMMARY | 2024-05-24 23:36 | XMS_ITS | Encounter Summary ---
Author Organization [facility] Address [address] [facility] [address] Care Team Providers Care Slasher Runner Name Role Phone Briana Medeiros MD Primary Care Provider [phone] Reason for Visit * Reason Comments Follow-up Encounter Details Date Type Department Care Team (Late st Contact Info) Description 02/07/2020 1:00 PM CDT Office Visit [facility] - Orthopedics [address] [place] [address], Critical [place] [address] Ronald Murray MD [address] [place] [address] [place] [address] T12 compression fracture, sequela (Primary [...] - - Weight 112 kg (247 lb) 02/07/2020 1:12 PM CDT Height 175.3 cm (5' 9 ) 02/07/2020 1:12 PM CDT Body Mass Index 36.48 02/07/2020 1:12 PM CDT documented in this encounter Functional [...] this encounter Patient Instructions * Patient Instructions* Dominik Rivers MD - 02/07/2020 1:55 PM CDT [facility] Department of Orthopaedic Surgery Orthopaedic Spine Clinic Discharge Form Mason Keys 02/07/2020 Thank you for coming in to see us today for your diagnosis of: T12 compression fracture, sequela Recommended Treatment: Observation No follow-up appointment is needed. Please call to follow-up if your symptoms worsen or fail to improve. Mr. Keys had a clinic appointment on 02/07/2020. Please call Yudy Markham RN, at [phone] with any questions or concerns. documented in this encounter Progress Notes * Dominik Rivers MD - 02/07/2020 1:46 PM CDT [facility] Orthopedic Spine Surgery Clinic Note Mason Keys, 69 year old, male : 1950 [facility]: [id number] Primary Care Physician: Briana Medeiros MD Diagnosis/Procedures 1.) Chronic T12 compression fracture Date of Injury: December 20, 2019 Time Since injury/surgery: 7 weeks HPI Date of this clinic visit: 02/07/2020 This is a 69 year old male with history of T12 compression fracture s/p falling at home who is herefor a follow-up clinic appointment. He was last seen in clinic on 01/03. At that time, he was unableto walk and taking oxycodone 10 mg for pain. Today, his pain is significantly improved, he is able to walk, and he is only taking over the counter tylenol once every 3 days on average. Pain is located in his lower back and is described as dull aching without radiation. Patient is able to walk without significant pain. Ambulates with walker. For pain control the patient has used tylenol with significant relief. Movement makes it worse and rest makes it better. Denies new numbness/paresthesias or bowel/bladder retention or incontinence. ROS otherwise negative. Smoking status: Former Pertinent Background Information: Occupation: Retired Prior orthopedic injuries/surgeries: Yes bilateral ARNALDO, right revision ARNALDO s/p MRSA infection, L1/L2 epidural abscess Diabetic: no Objective Ht 1.753 m (5' 9 ) Wt 112 kg (247 lb) BMI 36.48 kg/m2 PMHx Past Medical History: Diagnosis Date ??? Actinic [...] S/P PICC central line placement 02/13/2019 [facility] VAT R basilic ??? Seizures ??? Squamous cell carcinoma ??? VRE (vancomycin resistant enterococcus) culture positive 04/29/2019 rectal swab+ PSHx Past Surgical History: Procedure Laterality Date ??? [...] ??? Tracheostomy N/A 09/13/2017 N/A; TRACHEOSTOMY Social Hx Social History Tobacco Use ??? Smoking status: Former Smoker Last attempt to quit: 06/06/1981 Years since quittin.6 ??? Smokeless tobacco: Never Used Substance Use Topics ??? Alcohol use: No Family Hx family history includes CAD (Coronary Artery Disease) in his mother; Cirrhosis in his father. Allergies Allergies Allergen Reactions ??? Penicillins Skin Reactions and Swelling ??? Levaquin [Levofloxacin] Eye Itching red around the eyes , puffy, itchy ??? Scopace [Scopolamine] Other and MIRROR FRAMER Dysfunction delirium ??? Tobramycin Eye Itching red around the eyes, puffy, itchy Medications Current Outpatient Medications Medication ??? acetaminophen (TYLENOL) 325 MG tablet ??? albuterol (PROVENTIL;VENTOLIN) (5 MG/ML) 0.5% nebulizer solution ??? apixaban (ELIQUIS) 5 MG tablet ??? aspirin EC (ECOTRIN) 81 MG tablet ??? baclofen (LIORESAL) 10 MG tablet ??? benzonatate (TESSALON) 200 MG capsule ??? bumetanide (BUMEX) 0.5 MG tablet ??? Cetirizine HCl (ZYRTEC PO) ??? cyanocobalamin (VITAMIN B-12) 500 MCG tablet ??? diphenhydrAMINE (BENADRYL) 25 MG capsule ??? doxycycline hyclate (VIBRAMYCIN) 100 MG capsule ??? ferrous sulfate 325 (65 FE) MG tablet ??? HYDROcodone-acetaminophen (NORCO) 10-325 MG tablet ??? metoprolol succinate XL 24hr (TOPROL XL) 50 MG tablet ??? nystatin (NYSTOP) 438008 UNIT/GM powder ??? omeprazole (PRILOSEC) 40 MG capsule ??? oxyCODONE, immediate release, 10 MG tablet ??? potassium chloride ER (KLOR-CON M) 20 MEQ tablet ??? PROAIR HFA 108 (90 Base) MCG/ACT inhaler ??? roflumilast (DALIRESP) 500 MCG tablet ??? Skin Protectants, Misc. (BASIS FACIAL MOISTURIZER) CREA ??? SYMBICORT 160-4.5 MCG/ACT inhaler ??? tamsulosin (FLOMAX) 0.4 MG capsule ??? tiotropium (SPIRIVA RESPIMAT) 2.5 MCG/ACT inhaler ??? triamcinolone acetonide (KENALOG) 0.1 % cream ??? vitamin D, ergocalciferol, (DRISDOL) 40875 UNITS capsule No current facility-administered medications for this visit. Review of Systems - Bowel/Bladder incontinence or retention: Denies - Numbness/paresthesias to extremities: Denies - Hand clumsiness/loss of fine motor skills: Denies - Balance problems: Denies Review of all other systems was negative. Physical Exam General appearance: awake, cooperative, NAD Back: -Tenderness to palpation: mild over the area of the thoracolumbar junction Bilateral Lower Extremity: - Motor: Hip Flexion (L2/3) R5/5, L4/5 Knee Flexion 5/5 Knee Extension (L4) 5/5 Ankle Dorsiflexion (L5) 5/5 Great Toe Extension (L5) 5/5 Ankle Plantarflexion (S1) 5/5 - Sensation: Intact to light touch distally - Clonus: absent - Reflexes: Knee Jerk: Normal Achilles: Normal Gait - Walks with reciprocal heel/toe gait with walker. Imaging - xrays of lumbar and cervical spine taken and reviewed. Demonstrate T12 compression deformity, thoracolumbar kyphosis Assessment/Plan: Mason Keys is a 69 year old male with T12 compression fracture - Patient was counseled to the nature of their diagnosis and demonstrated understanding - Lifting/Activity restrictions: none - Follow up PRN Dominik Rivers MD 02/07/2020 Associated attestation - Ronald Murray MD - 02/07/2020 9:02 PM CDT Patient is seen with the orthopedic warehouse shipping receiving clerk. His back pain is much improved. He is now takingTylenol every 3rd day. Patient has radiographs of the thoracolumbar compression fracture unchanged. Impression, overall doing satisfactory Plan: Patient will continue with his activities as tolerated discontinue his brace and follow up with us on an as-needed basis only. This dictation was created by using M Mod[employer]ency Direct. Please excuse any continuous improvement lead errors. Ronald Murray MD documented in this encounter Plan of Treatment Upcoming Encounters Date Type Department Care Team (Late st Contact Info) Description 07/09/2024 12:30 PM TELECOMMUNICATIONS REPAIRER Office Visit [facility] - GI [address] [place] [address], [place] [phone] Twin Miller MD [address] [place] [address] [place] [address] 09/19/2024 2:00 PM CDT Office Visit [facility] - Orthopedic Surgery [address] [place] [address] Larry Alexander MD [address] [facility] [address] [place] [address] documented as of this encounter Goals Goal [...] documented as of this encounter Care Teams Slasher Runner Relationship Specialty Start Date End Date Briana Medeiros MD [address] [place] [address] PCP - General 02/15/18 02/22/22 documented as of this encounter
--- OUTSIDE RECORDS SUMMARY | 2024-05-24 23:36 | XMS_ITS | Encounter Summary ---
Author Organization [facility] Address [address] [place] [address] Care Team Providers Care Plastic Surgery Specialist Name Role Phone Briana Medeiros MD Primary Care Provider [phone] Reason for Visit * Reason Comments Follow-up Encounter Details Date Type Department Care Team (Late st Contact Info) Description 07/31/2019 8:30 AM ARCHIVES SPECIALIST Office Visit [facility] - Orthopedics [address] [place] [phone] Larry Alexander MD 1031 [facility] 280 [place], [place] [phone] Arthralgia of hip, unspecified laterality (Primary Dx) Social History Tobacco Use Types [...] * Patient Instructions* Reji Darby MD - 07/31/2019 8:50 AM ARCHIVES SPECIALIST Continue local wound care Follow up in 1 year or as needed IVES SPECIALIST documented in this encounter Progress Notes * Larry Alexander MD - 07/31/2019 9:03 AM CST Patient returns for follow-up of his 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 He has been doing much better. He states that the her lower pain is still gone. He states that the drainageis improving. He has not had fevers chills or redness. He has 3 punctate areas with some minimal drainage which they have been doing Betadine dressing changes. He wants to avoid resection arthroplasty. He is on doxycycline. He denies malaise actually feels much better. He was recently on prednisonefor his eyes. Current Outpatient Medications on File Prior to [...] times daily ??? Cetirizine HCl (ZYRTEC PO) ??? cyanocobalamin (VITAMIN B-12) 500 MCG tablet Take 500 mcg by mouth once daily ??? diphenhydrAMINE (BENADRYL) 25 MG capsule Take 25 mg by mouth every 6 hours as needed for Itching ??? doxycycline hyclate (VIBRAMYCIN) 100 MG capsule Take 100 mg by mouth once daily ??? doxycycline monohydrate 100 MG capsule Please take 100 mg by mouth twice daily for 2 weeks and then switch to suppression dose of 100 mg daily 57 capsule 0 ??? ferrous sulfate 325 (65 FE) MG tablet Take 325 mg by mouth 2 times daily with morning and evening meal ??? metoprolol succinate XL 24hr (TOPROL XL) 50 MG tablet Take 50 mg by mouth once daily ??? nystatin (NYSTOP) 584317 UNIT/GM powder Apply to affected area 2 times daily as needed Apply togroin area twice a day as needed. ??? omeprazole (PRILOSEC) 40 MG capsule Take 40 mg by mouth daily before breakfast ??? oxyCODONE, immediate release, 10 MG tablet Take 1 tablet by mouth every 4 hours as needed 12 tablet 0 ??? polyethylene glycol 3350 (MIRALAX) packet Take 17 g by mouth once daily ??? potassium chloride ER (KLOR-CON M) 20 MEQ tablet Take 20 mEq by mouth once daily ??? PREVIDENT 5000 BOOSTER PLUS 1.1 % as directed 4 ??? PROAIR HFA 108 (90 Base) MCG/ACT [...] as needed. ??? vitamin D, ergocalciferol, (DRISDOL) 77741 UNITS capsule Take 50,000 Units by mouth [...] Last attempt to quit: 06/06/1981 Years since quittin.1 ??? Smokeless tobacco: Never Used Substance and Sexual Activity ??? Alcohol use: No ??? Drug use: No ??? Sexual activity: Not on file Family History Problem Relation Name Age of Onset ??? Coronary Artery Disease Mother age 65 ??? Cirrhosis Father ??? Cancer - Breast Neg Hx ??? CVA Neg Hx ??? Hemophilia Neg Hx ??? Cancer - Other Neg Hx ??? Eczema Neg Hx ??? Psoriasis Neg Hx ??? Cancer - Skin, Non Melanoma Neg Hx ??? Cancer - Skin, Melanoma Neg Hx Review of Systems Constitutional: Negative for chills, fever, malaise/fatigue and weight loss. Eyes: Positive for redness. Cardiovascular: Negative for claudication and leg swelling. Musculoskeletal: Negative for falls and joint pain. Skin: Negative for rash. Neurological: Negative for weakness. All other systems reviewed and are negative. Physical exam: Patient is awake alert Height is 5 ft 11 in and weight is 190 lb for a BMI of 26.5 Facial expressions are appropriate His redness around his eyes is much improved Patient is cooperative with the examination Examination of the right hip reveals 3 punctate areas along the incision line without any expressible purulence but there is some scant drainage on the dressing. There is Betadine staining. He has nopain with range of motion of the right hip with flexion to 90, abduction 20, adduction 10, internalrotation of 10, external rotation of 20. Distally he can dorsiflex and plantar flex his ankle and toes without difficulty. 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 We will see him back in a year or sooner if he has fevers chills or any increasing problems. We discussed resection arthroplasty versus continuing with with dressing changes and suppression. He chooses to continue with suppression and dressing changes. Patient and his understood the treatment plan and all questions were answered IVES SPECIALIST * Paige Salgado RN - 07/31/2019 8:43 AM CST Patient present here for follow up of right hip. He denies pain. His is present w/ him. IVES SPECIALIST documented in this encounter Plan of Treatment Upcoming Encounters Date Type Department Care Team (Late st Contact Info) Description 07/09/2024 12:30 PM ARCHIVES SPECIALIST Office Visit [facility] - GI [address] [facility], [place] [address] Twin Miller MD [facility] DIV [place] [address] 09/19/2024 2:00 PM CDT Office Visit [facility] - Orthopedic Surgery [address] [place] [phone] Larry Alexander MD 1031 [facility] 280 [place] [address] documented as of this encounter Goals Goal [...] as of this encounter Visit Diagnoses Diagnosis Arthralgia of hip, unspecified laterality- Primary documented in this encounter Additional Health Concerns Infection Onset Date Last Indicated Resolved Time 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 Care Teams Plastic Surgery Specialist Relationship Specialty Start Date End Date Briana Medeiros MD [address] [place], [place] [phone] PCP - General 02/15/18 02/22/22 documented as of this encounter
--- OUTSIDE RECORDS SUMMARY | 2024-05-24 23:36 | XMS_ITS | Encounter Summary ---
Author Organization [facility] Address [address] [facility] [place] [address] Care Team Providers Care Fish Protector Name Role Phone Briana Medeiros MD Primary Care Provider [phone] Encounter Details Date Type Department Care Team (Late st Contact Info) Description 01/03/2020 12:27 PM CDT - 01/03/2020 11:59 PM CDT Hospital Encounter [facility] [address]L [address] [facility]. [facility] [place] [address] Ronald Murray MD [facility]5 [facility] OF [facility] [place] [address] Discharge Disposition: Home or Self [...] 10-325 MG tablet 12/31/2019 02/26/2020 nystatin (MYCOSTATIN) 901831 UNIT/GM powder Apply to affected area 2 [...] as needed. 10/12/2023 vitamin D, ergocalciferol, (DRISDOL) 73408 UNITS capsuleIndications:Oth er cirrhosis of liver (HCC) Take 50,000 Units by mouth every 7 days 0 02/02/2018 03/21/2023 documented as of this encounter Plan of Treatment Upcoming Encounters Date Type Department Care Team (Late st Contact Info) Description 07/09/2024 12:30 PM ANIMAL RIDE MANAGER Office Visit [facility] - [address] [place] [phone] Twin Miller MD [address] OF [place] [address] 09/19/2024 2:00 PM CDT Office Visit [facility] - Orthopedic Surgery [address] [facility] [place] [phone] Larry Alexander MD 10[address] [facility] 280 [place] [address] documented as of this encounter Goals Goal [...] Diagnosis Comments XR THORACIC SPINE 2VW Routine 01/03/2020 12:39 PM CDT Back pain, unspecified back location, [...] documented as of this encounter Care Teams Fish Protector Relationship Specialty Start Date End Date Briana Medeiros MD [address] [place], [place] [phone] PCP - General 02/15/18 02/22/22 documented as of this encounter
--- OUTSIDE RECORDS SUMMARY | 2024-05-24 23:36 | XMS_ITS | Encounter Summary ---
Author Organization [facility] Address [address] [facility] [place] [address] Care Team Providers Care Second Mate Name Role Phone Briana Medeiros MD Primary Care Provider [phone] Reason for Visit * Reason Comments Follow-up Encounter Details Date Type Department Care Team (Late st Contact Info) Description 07/03/2019 8:30 AM DAY CARE PROVIDER Office Visit [facility] - Orthopedics [address] [place] [address] [place] [phone] Larry Alexander MD 1031 [facility] 280 [place], [place] [phone] 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, [...] * Patient Instructions* Reji Darby MD - 07/03/2019 8:38 AM DAY CARE PROVIDER - Continue antibiotics and local wound care - Follow up in 4 weeks CARE PROVIDER documented in this encounter Progress Notes * Larry Alexander MD - 07/03/2019 8:57 AM CST Patient returns for his chronic infection of the right hip. He continues on doxycycline. He denies pain fevers or chills. He still has several areas of drainage on the right hip. He still wants to avoid any surgical intervention. He has previously undergone modular component revision for a presumedacute infection however he continues to have superficial wound drainage. At his last surgical encounter he appeared to just have superficial abscesses which were debrided but he continues to have drainage. They do Betadine dressing changes daily. Overall he feels well. Current Outpatient Medications on File Prior to [...] mg by mouth 2 times daily ??? cyanocobalamin (VITAMIN B-12) 500 MCG tablet [...] by mouth once daily ??? nystatin (NYSTOP) 114485 UNIT/GM powder Apply to affected area 2 [...] as needed. ??? vitamin D, ergocalciferol, (DRISDOL) 38930 UNITS capsule Take 50,000 Units by mouth [...] S/P PICC central line placement 02/13/2019 [facility] VAT R basilic ??? Seizures ??? Squamous [...] Last attempt to quit: 06/06/1981 Years since quittin.0 ??? Smokeless tobacco: Never Used Substance and [...] for chills, fever, malaise/fatigue and weight loss. Cardiovascular: Negative for claudication and leg swelling. Musculoskeletal: Negative for falls and joint pain. Skin: Negative for itching and rash. Neurological: Negative for focal weakness. Physical exam: Patient is awake alert Height is 5 ft 11 weight is 190 lb for a BMI of 26.5 Examination of the right hip reveals several areas of mild erythema and some drainage proximally. There is no active drainage at the distal areas of erythema. Distally he can dorsiflex and plantar flex his ankle and toes without difficulty. X-rays: None obtained Assessment: Right hip continued drainage after treatment for MRSA infection Plan: We discussed resection arthroplasty with placement of an antibiotic cement spacer again todaybut they want to avoid any further surgical intervention at this time. He feels well and does not have any pain. He will continue with the doxycycline and Betadine dressing changes. We will see him back in a month or sooner if he has any change in his clinical condition including fevers chills or pain. We discussed coming to the [facility] Department if he has these issues. Patient and his understood the treatment plan and all questions were answered. CARE PROVIDER documented in this encounter Plan of Treatment Upcoming Encounters Date Type Department Care Team (Late st Contact Info) Description 07/09/2024 12:30 PM DAY CARE PROVIDER Office Visit [facility] - GI [address] [place] [address], [place] [address] Twin Miller MD [address] [place] [address] [place] [address] 09/19/2024 2:00 PM CDT Office Visit [facility] - Orthopedic Surgery [address] [facility] [place] [phone] Larry Alexander MD 1031 [facility] 280 [place] [address] documented as of this encounter Goals Goal [...] documented as of this encounter Care Teams Second Mate Relationship Specialty Start Date End Date Briana Medeiros MD [address] [place] [address] PCP - General 02/15/18 02/22/22 documented as of this encounter
--- OUTSIDE RECORDS SUMMARY | 2024-05-24 23:36 | XMS_ITS | Encounter Summary ---
Author Organization [facility] Address [address] [facility] [place] [address] Care Team Providers Care Debeaker Name Role Phone Briana Medeiros MD Primary Care Provider [phone] Encounter Details Date Type Department Care Team (Late st Contact Info) Description 02/07/2020 1:06 PM CDT Hospital Encounter [facility]STIC [facility] 1L [address] [facility] [place] [phone] Ronald Murray MD [facility]5 [facility] [place] [address] Discharge Disposition: Home or Self [...] 10-325 MG tablet 12/31/2019 02/26/2020 nystatin (MYCOSTATIN) 936169 UNIT/GM powder Apply to affected area 2 [...] as needed. 10/12/2023 vitamin D, ergocalciferol, (DRISDOL) 35909 UNITS capsuleIndications:Oth er cirrhosis of liver (HCC) Take 50,000 Units by mouth every 7 days 0 02/02/2018 03/21/2023 documented as of this encounter Plan of Treatment Upcoming Encounters Date Type Department Care Team (Late st Contact Info) Description 07/09/2024 12:30 PM DOLLY PUSHER Office Visit [facility] - [address] [place] [phone] ElbeTwin craven MD [address] [place] [address] 09/19/2024 2:00 PM CDT Office Visit [facility] - Orthopedic Surgery 10[address] [place] [phone] Larry Alexander MD 1031 [facility] 280 [place] [address] documented as of this encounter Goals Goal [...] Name Priority Date/Time Associated Diagnosis Comments XR LUMBAR SPINE 2 OR 3VW Routine 02/07/2020 1:19 PM CDT Back pain, unspecified back location, unspecified back pain laterality, unspecified chronicity documented in this encounter Results * XR LUMBAR SPINE 2 OR 3VW [...] documented as of this encounter Care Teams Debeaker Relationship Specialty Start Date End Date Briana Medeiros MD [address] [place], [place] [phone] PCP - General 02/15/18 02/22/22 documented as of this encounter
--- OUTSIDE RECORDS SUMMARY | 2024-05-24 23:36 | XMS_ITS | Encounter Summary ---
Author Organization [facility] Address [address] [facility] [place] [address] Care Team Providers Care Senior Informatica Etl Developer Name Role Phone Briana Medeiros MD Primary Care Provider [phone] Encounter Details Date Type Department Care Team (Late st Contact Info) Description 06/29/2019 Orders Only [facility] - Orthopedics [address] [facility], [facility] [place] [phone] Larry Alexander MD 1031 [facility] 280 [place] [address] Arthralgia of hip, unspecified laterality Social History [...] st Contact Info) Description 07/09/2024 12:30 PM MISSION COMMANDER Office Visit [facility] - GI [address] [facility], [place] [address] Twin Miller MD [facility]5 [facility] 2L [place] [address] 09/19/2024 2:00 PM CDT Office Visit [facility] - Orthopedic Surgery [address] [place] [phone] Larry Alexander MD 1031 [facility] 280 [place] [address] documented as of this encounter Goals Goal [...] as of this encounter Care Teams Senior Informatica Etl Developer Relationship Specialty Start Date End Date Briana Medeiros MD [address] [place], [place] [phone] PCP - General 02/15/18 02/22/22 documented as of this encounter
--- OUTSIDE RECORDS SUMMARY | 2024-05-24 23:37 | XMS_ITS | Encounter Summary ---
Author Organization [facility] Address [address] [place] [address] Care Team Providers Care Preliminary School Psychologist Name Role Phone Briana Medeiros MD Primary Care Provider [phone] Reason for Visit * Auth/Cert Specialty Diagnoses / Procedures Referred By Contac t Referred To Contact Diagnoses Prosthetic Joint Infection Referral ID Status Reason Start Date Expiration Date Visits Re quested Visits Authorized [id number] 1 1 Encounter Details Date Type Department Care Team (Latest Contact Info) Description 04/29/2019 5:18 AM DIRECTOR MEDIA - 05/06/2019 2:23 PM DIRECTOR MEDIA Hospital Encounter HC 2 ORTHO/NEW VIS [address] [place] [address] Yasmany Oh MD [address] [place] [id number] Kev Ordonez MD [address] [facility] [address] [place] [id number] Michelle Pratt MD [address] [place] [address] Surgery Orthopedics Discharge Disposition: Home Health Care Svc Social History Tobacco Use Types Packs/Day Years [...] Sign Reading Time Taken Comments Blood Pressure 120/71 05/06/2019 12:26 PM DIRECTOR MEDIA Pulse 81 05/06/2019 12:26 PM DIRECTOR MEDIA Temperature 37.1 ??C (98.8 ??F) 05/06/2019 12:[address] Respiratory Rate 20 05/06/2019 12:26 PM DIRECTOR MEDIA Oxygen Saturation 98% 05/06/2019 12:26 PM DIRECTOR MEDIA Inhaled Oxygen Concentration 21% 05/04/2019 2 :41 PM DIRECTOR MEDIA Weight 99.8 kg (220 lb) 04/29/2019 5:26 AM DIRECTOR MEDIA Height 180.3 cm (5' 11 ) 04/29/2019 5:26 AM DIRECTOR MEDIA Body Mass Index 30.68 04/29/2019 5:26 AM DIRECTOR MEDIA documented in this encounter Functional Status Functional [...] 04/29/2019 documented as of this encounter Discharge Summaries * Kev Ordonez MD - 05/06/2019 9:41 AM CST Images from the original note were not included. Physician Discharge Summary Patient Name: José Miguel Keys Date of : 1950 Admit date: 04/29/2019 Discharge date: 05/06/2019 Admitting Physician: Kev Ordonez MD Attending Physician: Kev Ordonez MD Discharge Physician: Admission Diagnosis: Infection of right prosthetic hip joint Past Medical History Past Medical History: Diagnosis Date ??? Actinic [...] ??? S/P PICC central line placement 02/13/2019 [facility] VAT R basilic ??? Seizures ??? Squamous cell carcinoma ??? VRE (vancomycin resistant enterococcus) culture positive 04/29/2019 rectal swab+ Resolved Diagnoses None found. Discharge Diagnoses Infection of right prosthetic hip joint COPD Mild aortic regurgitation, atrial fibrillation, CAD, questionable HFpEF EF 55 percent, wall thickness mildly increased Pulmonary hypertension pressures of 54 mmHg on echo BPH VALENTINA Diagnostic Studies See hospital course Treatments See hospital course Procedures See hospital course Consults ID Orthopedic surgery Hospital Course José Miguel D Ludmila??is a 68 yo male??with a history of CAD,??atrial fibrillation, COPD, cirrhosis, VALENTINA and complex history of MRSA bacteremia and epidural abscess in 2018.He has a history of right total hip arthoplasty in 2005. He was admitted on 02/02 with a week of right hip pain; CT revealed a right hip abscess for which he underwent I/D by orthopaedics on 02/04 and 02/08. Cultures grew MRSA.The patient has been on vancomycin. ID consulted; recommending vancomycin and rifampin??through 04/01 following by chronic suppression with doxycycline 100 mg BID for at least 6 month??which she is still continuing. # Right hip septic arthritis - Status post arthrotomy, irrigation and debridement of right hip arthroplasty on May [address] Alexander - Status post wound VAC application - Micro showing no organisms on Gram stain, anaerobics in fluids pending, blood culture no growth till date; VRE, MRSA surveillance positive - discharged on po doxycycline 100 mg po bid for 2 weeks and then 100 mg daily afterwards for suppression - PT OT - Ortho and ID consulted - Weight bearing as tolerated on right lower extremity ?? # COPD - cont home meds ?? # Mild aortic regurgitation, atrial fibrillation, CAD, questionable HFpEF EF 55 percent, wall thickness mildly increased - Rate controlled - Continue metoprolol XL 50 mg once daily - Continue Eliquis 5 mg b.i.d. p.o. - Bleeding precautions - On Bumex 0.5 mg b.i.d. ?? # Pulmonary hypertension pressures of 54 mmHg on echo - Needs outpatient monitoring - Possible pulmonology referral as outpatient - Continue Eliquis, continue Bumex ?? # BPH - Continue Flomax ?? # VALENTINA at night - BMI of 30.68 - CPAP at night Exam Vitals: 05/06/19 0400 05/06/19 0744 05/06/19 0757 05/06/19 0927 BP: 125/72 121/69 Pulse: 79 76 86 88 Resp: 18 20 18 Temp: 97.9 ??F (36.6 ??C) 97.9 ??F (36.6 ??C) SpO2: 100% 100% 99% 97% Weight: Height: GEN: alert, well appearing, and in no distress HEENT: EOMI, PERRL, mild apple orbital redness noted; no tenderness exam.. Neck supple. No thyromegaly LUNGS: Clear to auscultation bilaterally. No abnormal respiratory effort or retraction noted. No w/r/r. CV: Regular rate and rhythm without murmur, gallop or rub. ABD: soft, nontender, nondistended, no hepatomegaly, normal bowel sounds SKIN: Normal to inspection. Warm, dry, supple, with no changes in moles or sores that will not heal. MSK: R hip wound VAC in place, postoperative tenderness present NEURO: Intact motor, sensory, cerebellar, and cranial nerve systems. PSYCH: The patient is oriented to time, place, and person ?? Condition at discharge: fair Disposition: Home, Home health Code Status At Discharge Full Code Patient Instructions Current Discharge Medication List START taking these medications Instructions Authorizing Provider doxycycline monohydrate 100 MG capsule Quantity Dispensed: 57 capsule Please take 100 mg by mouth twice daily for 2 weeks and then switch to suppression dose of 100 mg daily Kev Ordonez MD oxyCODONE (immediate release) 10 MG tablet Quantity Dispensed: 12 tablet Take 1 tablet by mouth every 4 hours as needed Kev Ordonez MD CONTINUE taking these medications which have CHANGED Instructions Authorizing Provider * albuterol (5 MG/ML) 0.5% nebulizer solution What changed: ?? how to take this ?? when to take this Commonly known as: PROVENTIL;VENTOLIN Quantity Dispensed: 1 Box 2.5 mg. Igor Gilliam MD * PROAIR HFA 108 (90 Base) MCG/ACT inhaler What changed: Another medication with the same name was changed. Make sure you understand how and when to take each. Generic drug: albuterol HFA * This list has 2 medication(s) that are the same as other medications prescribed for you. Read thedirections carefully, and ask your doctor or other care provider to review them with you. CONTINUE taking these medications which have NOT CHANGED Instructions Authorizing Provider aspirin EC 81 MG tablet Commonly known as: ECOTRIN Take 81 mg by mouth once daily baclofen 10 MG tablet Commonly known as: LIORESAL Take 10 mg by mouth once daily BASIS FACIAL MOISTURIZER Crea 1 Each by Apply externally route as needed Reasons: Dryness Confined to a Specific area of the Body, eyes benzonatate 200 MG capsule Commonly known as: TESSALON Take 1 capsule by mouth 3 times daily as needed for Cough Poncho Cisneros MD bumetanide 0.5 MG tablet Commonly known as: BUMEX Take 0.5 mg by mouth 2 times daily cyanocobalamin 500 MCG tablet Commonly known as: VITAMIN B-12 Take 500 mcg by mouth once daily DALIRESP 500 MCG tablet Generic drug: roflumilast Take 500 mcg by mouth once daily diphenhydrAMINE 25 MG capsule Commonly known as: BENADRYL Take 25 mg by mouth every 6 hours as needed for Itching doxycycline hyclate 100 MG capsule Commonly known as: VIBRAMYCIN Take 100 mg by mouth once daily ELIQUIS 5 MG tablet Generic drug: apixaban Take 5 mg by mouth 2 times daily ferrous sulfate 325 (65 FE) MG tablet Take 325 mg by mouth 2 times daily with morning and evening meal metoprolol succinate XL 24hr 50 MG tablet Commonly known as: TOPROL XL Take 50 mg by mouth once daily NYSTOP 396470 UNIT/GM powder Generic drug: nystatin Apply to affected area 2 times daily as needed Apply to groin area twice a day as needed. omeprazole 40 MG capsule Commonly known as: PriLOSEC Take 40 mg by mouth daily before breakfast polyethylene glycol 3350 packet Commonly known as: MIRALAX Take 17 g by mouth once daily Poncho Cisneros MD potassium chloride ER 20 MEQ tablet Commonly known as: IRENE-KAIN M Take 20 mEq by mouth once daily PREVIDENT 5000 BOOSTER PLUS 1.1 % Generic drug: Sodium Fluoride as directed SPIRIVA RESPIMAT 2.5 MCG/ACT inhaler Generic drug: tiotropium Inhale 2 puffs by mouth once daily SYMBICORT 160-4.5 MCG/ACT inhaler Generic drug: budesonide-formoterol INHALE 2 PUFFS BY MOUTH TWICE A DAY tamsulosin 0.4 MG capsule Commonly known as: FLOMAX Take 0.4 mg by mouth at bedtime triamcinolone acetonide 0.1 % cream Commonly known as: KENALOG Apply to affected area 3 times daily Apply to rash daily as needed. TYLENOL 325 MG tablet Generic drug: acetaminophen Take 650 mg by mouth every 4 hours as needed vitamin D (ergocalciferol) 1.25 MG (92758 UT) capsule Commonly known as: DRISDOL Take 50,000 Units by mouth every 7 days Discharge Procedure Orders Follow up Instructions Please continue to wear your home cpap/bipap during times of sleepiness, unless otherwise instructed. Some medications that you may have been prescribed or were used during a procedure may increase the chance of sleep apnea complications. Why you were hospitalized Order Specific Question Answer Comments Your discharge diagnosis is: Abscess of right hip [[id number]] Follow up with Primary Care Provider (PCP) Our records show your Primary Care Provider (PCP) is Briana Medeiros MD. Order Specific Question Answer Comments Follow Up Instructions: 1 week Special instructions Please give the following instructions to the patient upon discharge/transfer: - Hip Precautions as follows: - Posterior hip precautions- no flexion past 90 degrees, no adduction past midline, no internal rotation - Thigh high FRANKLIN hose when up during the day. May remove at night while sleeping - Patient may discontinue compression stocking after two weeks. - Ankle flexion exercises every hour during the day to prevent swelling and deep vein thrombosis prevention. ?? Continue apixaban for DVT prophylaxis. - Keep wound clean and dry. Change surgical dressing 7 days after surgery. After that you should perform daily or every other day dressing changes with dry gauze and tape as needed for saturation. After diogenes/sutures have been removed it is OK to shower but leave wound covered with a dressing in the shower. After shower, remove the wet dressing, pat dry, and apply antibiotic ointment over woundthen place a clean dry dressing. ?? Apply an antibiotic ointment (neosporin/bacitracin) to incision daily after initial surgical dressing has been removed ?? Do not get incision wet in shower until diogenes are removed. No tub soaks. No scrubbing around incision. ?? Call [phone] to schedule the first follow-up appointment with Dr. Alexander in 3 week(s) or for any questions Change dressing Continue current dressings (wound is closed, he has an incisional wound vac) until POD#7, at that time home health will change to a new Prevena (currently at bedside in package) Cardiac (heart-healthy) diet -- Low cholesterol Activity as tolerated Rest today, and increase your activity level tomorrow as tolerated. Follow up with provider Order Specific Question Answer Comments Follow Up Instructions: 3 weeks Patient seen and examined by myself today. Please refer to my progress note for more details including a physical exam. Discharge time: greater than 35 minutes with coordination of care with CM/LAURA, consultants, and nurse, education, medication reconciliation, discharge summary, and counseling patient Kev Ordonez MD 05/06/2019 12:18 PM CTOR MEDIA documented in this encounter Discharge Instructions * Discharge Instructions* Alberto De Los Santos MD - 05/02/2019 3:[address] [facility] Orthopedic Adult Reconstruction Surgery Patient Discharge Instructions Mr. José Miguel Keys, You are being discharged from the hospital today during which time you have been under the care of the Orthopedic Adult Reconstruction Surgery team. You had the following injuries and interventions: Right hip Irrigation and debridement of abscess. A provena wound dressing was applied. You may resume you normal diet (including any special diets as directed by your primary doctor) as well as your home medications. You should follow up with you primary doctor if you have any questions regarding medication youtook prior to your stay in the hospital. Always keep your surgical incision/dressing clean and dry. If you experience increasing pain at your incision site, redness, swelling, increasing discharge, foul odors, or fevers (greater than 100.4)and chills you should call the office at the above number. If you feel this is an emergency you should be evaluated in the Emergency Department of a nearby hospital. Patient Instructions Summary: - Weight Bearing: weight-bearing as tolerated right leg - Activity: Activity as tolerated - Diet: regular diet - Wound Care: Keep wound clean and dry. Change surgical dressing 7 days after surgery. After that home health nurse will change the provena dressing. Keep this intact for another week. Diogenes and sutures are to be removed at first clinic visit at three weeks. After diogenes/sutures have been removed it is OK to shower but leave wound covered with a dressing in the shower. After shower, remove thewet dressing, pat dry, and apply antibiotic ointment over wound then place a clean dry dressing. - Anticoagulation: 4 weeks per medicine recommendations - Sutures/Kenneth: to be removed at three week clinic visit - Pain Medication: [place] Narcotic Medication Patient Information You are being discharged/sent home with a prescription(s) for narcotic pain medicine (examples: Oxycodone, Hydrocodone, Roxicodone, Percocet, [place]). Our goal is to control your pain, however all medicines may have side effects. Additionally it is important to remember that the goal of pain medication is not to take away the pain completely but rather combat it enough to make daily living manageable. Please be aware of the following instructions: - You should not drive or operate any motorized vehicle or heavy or dangerous machinery until you have been able to stop taking your pain medicine for at least 48 (forty eight) hours. - You should avoid making any serious or legal decisions while you are taking any medicine for pain. - Take your pain medicine as prescribed by your physician, per the label on your medicine container. - You may need an over the counter laxative or stool softener while taking your pain medicine (pain medicines can cause constipation). - Do not consume alcohol while taking pain medicine. - Do not use recreational drugs while taking pain medicine. - Over the first week you are discharged you should be gradually weaning off narcotics and switch to only taking over the counter Tylenol. - Many pain medicines (such as [place] or Percocet) also contain Tylenol/Acetaminophen (this is the 325 component of the 5-325 or 10-325 which is listed on the medicine container). Do not consume more than the daily dose of Tylenol/Acetaminophen (3 grams or 3,000 miligrams) combined between regular Tylenol and your pain medication. - For your comfort and safety, we need to see you in the office to write additional prescriptions for pain medicine. No pain medicine will be renewed over the phone. - Bring all medicine bottles to office visits. Call [phone] to schedule the first follow-up appointment with Dr. Alexander in 3 week(s) or for any questions Alberto De Los Santos MD CTOR MEDIA documented in this encounter Medications at Time [...] daily 57 capsule 05/06/2019 08/28/2019 nystatin (MYCOSTATIN) 977461 UNIT/GM powder Apply to affected area 2 [...] as needed. 10/12/2023 vitamin D, ergocalciferol, (DRISDOL) 59012 UNITS capsuleIndications:Ot her cirrhosis of liver (HCC) Take 50,000 Units by mouth every 7 days 0 02/02/2018 03/21/2023 documented as of this encounter Progress Notes * Alberto Shell MD - 05/06/2019 10:01 AM CST [facility] Orthopedic Surgery Daily Progress Note José Miguel Keys, 68 year old, male : 1950 CSN: [id number] Primary Care Physician: Briana Medeiros MD - Admission Date/Time: 04/29/2019 5:18 AM - Hospital Day: 7 Subjective Patient seen and examined this AM on rounds. IV infiiltrated overnight.. Pain controlled this morning. Denies any new numbness/paresthesias. POD#4 s/p I&D with closure of Right hip wound. Walked 100ft. With PT already this moring. OR cultures still with no growth to date. Vitals Temp (24hrs), Av.9 ??F (36.6 ??C), Min:97.8 ??F (36.6 ??C), Max:98.2 ??F (36.8 ??C) BP 121/69 Pulse 88 Temp 97.9 ??F (36.6 ??C) (Oral) Resp 18 Ht 5' 11 (1.803 m) Wt 220 lb (99.8 kg) SpO2 97% BMI 30.68 kg/m2 Labs Recent Labs Component Name 05/06/19 0231 05/05/19 0215 05/03/19 0246 05/02/19 0410 WBC 6.9 - 9.6 6.6 HGB 10.1* - 11.2* 10.8* HCT 32.6* - 38.1 36.7 PLTCOUNT 176 157 138* 143* Recent Labs Component Name 04/30/19 0242 02/15/19 0307 02/14/19 0346 INR 1.1 1.9* 1.9* Cultures 05/02 OR cultures with NGTD Physical Exam General appearance: Awake, cooperative, no acute distress, Right lower extremity: -Appearance: Prevena incisional W[place] intact and functioning -Tenderness: not assessed -ROM: not assessed -Motor: Able to plantarflex ankle, able to dorsiflex ankle, able to plantarflex great toe, able to dorsiflex great toe -Sensation: SILT to dorsal and plantar foot -Vascular: 2+ DP pulse with toes warm and well perfused Assessment/Plan Active Problems: Infection of right prosthetic hip joint Patient is a??68 year old,??male??with infected right total hip arthroplasty from 2005 -s/p right hip I&D and wound vac application on??02/04/[address]??with Dr. Alexander - s/p:??Right hip I&D with Femoral head and poly exchange with delayed primary closure 02/08/[address] Alexander - s/p: Irrigation and debridement of right hip abscess 05/02/[address] Alexander 1. Activity/Weight-bearing status: WBAT RLE 2. Current Dispo: OK for discharge from Orthopedic standpoint. Plan for home likely early next week 3. Anticoagulation Status: ASA 325 BID 4. Antibiotics: Per ID. Currently on Vanc and Rifampin. Per Dr. Nevarez's note patient will be discharged on PO Doxy 5. Wound care: Continue current dressings (wound is closed, he has an incisional wound vac) until POD#7, at that time home health will change to a new Prevena (currently at bedside in package) 6. Diet: regular 7. PT/OT 8. Pain Control 9. Orthopedics will continue to follow. Please page with any questions or concerns Please give the following instructions to the patient upon discharge/transfer: ?? Hip Precautions as follows: ?? Posterior hip precautions- no flexion past 90 degrees, no adduction past midline, no internal rotation ?? Thigh high FRANKLIN hose when up during the day. May remove at night while sleeping ?? Patient may discontinue compression stocking after two weeks. ?? Ankle flexion exercises every hour during the day to prevent swelling and deep vein thrombosis prevention. ?? Continue EC ASA 325 mg po bid for one month for DVT prophylaxis. ?? If on coumadin: , weekly INR's please fax results to clinic, c/o DONTAE Alonzo ( [facility]). Plan for 4 weeks of anticoagulation with a target INR of 1.5-1.8 ?? Keep wound clean and dry. Change surgical dressing 7 days after surgery. After that you should perform daily or every other day dressing changes with dry gauze and tape as needed for saturation. After diogenes/sutures have been removed it is OK to shower but leave wound covered with a dressing inthe shower. After shower, remove the wet dressing, pat dry, and apply antibiotic ointment over wound then place a clean dry dressing. ?? Apply an antibiotic ointment (neosporin/bacitracin) to incision daily after initial surgical dressing has been removed ?? Do not get incision wet in shower until diogenes are removed. No tub soaks. No scrubbing around incision. ?? Call [phone] to schedule the first follow-up appointment with Dr. Alexander in 3 week(s) or for any questions Alberto Shell MD 05/06/2019 10:01 AM CTOR MEDIA * Azeb Dye RN - 05/06/2019 9:43 AM CST [facility]AR spoke with of [facility] and faxed CLIF information to [phone] CTOR MEDIA * James Dasilva PharmD - 05/06/2019 9:32 AM CST This patient was on vancomycin per pharmacy protocol. This order has been discontinued by Dr. Ordonez.Pending levels and/or doses have been canceled. This entry for documentation and informational purposes only. James Dasilva PharmD CTOR MEDIA * Cheryl Mccoy PharmD - 05/06/2019 9:09 AM CST Vancomycin Per Pharmacy (Day 8) 68 year old male receiving vancomycin 1250 mg IV every 18 hours for the management of MRSA (+) lefttotal hip arthroplasty infection. ID service following. Vitals: Height: 5' 11 (180.3 cm) (04/29/19525) Weight: 99.8 kg (220 lb) (04/29/19525) Temp (24hrs) Max:98.2 ??F (36.8 ??C) Current Labs: Recent Labs Component Name 05/06/19 0231 05/05/19 0215 05/04/19 0307 05/03/19 0246 05/02/19 0410 BUN 22 20 19 16 20 CREATININE 1.15 0.96 1.12 1.04 1.13 WBC 6.9 - - 9.6 6.6 Creatinine Clearance: Estimated Creatinine Clearance: 71.9 mL/min (based on SCr of 1.15 mg/dL). Cultures: 04/29 Blood x 2: NGTD 05/02 Right hip fluid: NGTD Right hip fluid (s/p irrigation): NGTD Vancomycin goal: 15-20 mcg/ml (Loading Dose) Recent Labs Component Name 05/03/19 1321 05/01/19 0749 04/29/19 0644 02/15/19 1650 02/07/19 0409 02/06/19 0419 VANCTROUGH 22.9* 8.1* - 16.5 - - - VANCORNDM - - 10.5 - - 20.9 19.2 - = values in this interval not displayed. A/P BUN/SCr increased today although has been labile. WBC has been relatively stable. Trough level on 1500 mg IV q18h regimen was above goal. Dose reduced to 1250 mg on 05/03. Will continue the current regimen at this time. Will obtain a vancomycin level this evening to assess current dosing reigmen. Will continue to monitor and adjust as appropriate. Cheryl Mccoy, PharmD 05/06/2019 9:09 AM CTOR MEDIA * Alanna (Pt), Mike, PT - 05/06/2019 8:03 AM CST Physical Therapy Treatment Summary Chart review completed. Nursing consented for PT. Explained purpose of PT and patient consented to participate in therapy. 1. 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 Coronary artery disease without angina pectoris, unspecified vessel or lesion type, unspecified whether redding or transplanted heart 3. Chronic atrial fibrillation 4. Diagnosis unknown SUBJECTIVE: I slept just for an hour last night. I want to get back in bed after therapy Patient's Goal for the Day: walk Patient Arthroplasty Liaison (PAL): Pain Assessment: Pain Rating Score #: 7 Pain Location : Hip Pain Orientation: Right Pain Quality: Aching OBJECTIVE: Orientation Level: Oriented X4 Precautions: WBAT RLE, wound vac Bed Mobility: Rolling: Supervision Supine to Sit: Supervision Sit to Supine: Supervision Cues for safety with wound vac wires Transfers: Sit to Stand: Supervision Stand to Sit: Supervision Bed to Chair: Declined(states he slept just for an hour last night) Mobility: Distance Ambulated: 110 FEET Ambulation: Assistive Device: Gait Belt;Walker-2 Wheeled Ambulation: Level of Assistance: Stand By Assist Ambulation: Gait Deviations: Antalgic;Bernarda - Decreased;Increased Weight Bearing through Upper Extremity;Increased Trunk Flexion;Step Length - Decreased Stairs: Number: (declined at this time;will assess next session) Weight Bearing Status-LLE: Weight Bearing as Tolerated Weight Bearing Status-RLE: Weight Bearing as Tolerated Weight Bearing Status-LUE: Weight Bearing as Tolerated Weight Bearing Status-RUE: Weight Bearing as Tolerated Patient ambulates farther this date without rest breaks, however, noted to be SOB towards the end of 90 feet. Educated on energy conservation and pursed lip breathing. Reports, I am always short of breath Activity Tolerance and O2 Requirements: Activity Tolerance: Observed shortness of breath after activity;Requires rest breaks Vital Signs: SpO2: 99 % Pulse: 86 Exercise: Patient completed BLLE exercises in supine position with cues for proper technique and pacing. Patient tolerates well. Ankle Pumps: 20 Isometric Quad Sets: 10 Isometric Gluteal Sets: 10 Hip ROM ABDuction: 10 ROM - Heel Slides: 10 Knee Extension (Supine SAQ): 10 repetitions ASSESSMENT: Patient presents in bed upon PT arrival. agreeable to therapy. Skilled PT session focused on transfers, bed mobility, gait training, strengthening for safe return to PLOF. Patient tolerates session well. Please refer above for more details. Patient in bed at the end of session. The patient is making good progress in therapy. Noted to be ambulating farther and needing less assistance with transfers. Educated on benefits of OOB activity and encouraged to sit up later today in the recliner. Good understanding demonstrated. Continues to have deficits in activity tolerance and balance which limit his independence with mobility at this time. Call light and phone in reach with no alarm activated. All lines, monitors, IV's, equipment in place and intact pre and post visit. RNAlvino, notified of patient's performance/location end of session. Pt was educated in PT plan of care, fall precautions, and benefits of OOB activity with good understanding. Please refer to the Filed Flowsheet for further details. Refer to Plan of Care for PT goals. RECOMMENDATIONS/PLAN: Patient will benefit from continued PT with home health to ensure accessibility and safety in home environment. PT Discharge Recommendations: Home Health PT If this is the last Physical Therapy visit, this note serves as the discharge summary. Thank you, Mike Mondragon (Pt), PT x [phone] [employer] Mari Mondragon (Pt)Mike PT - 05/06/2019 8:02 AM CST Problem: Mobility Goal: STG - Patient will ambulate Description 300'x1 WBAT R LE with w/w, modified indep Outcome: Ongoing Problem: Transfers Goal: STG - Patient to transfer to and from sit to supine Description Modified indep, WBAT R LE Outcome: Ongoing Goal: STG - Patient will transfer sit to and from stand Description Modified indep with w/w, WBAT R LE Outcome: Ongoing [facility] MEDIA * Kristen Guadarrama, RN - 05/06/2019 4:33 AM CST Pt alert x4 Voices needs Vss Prn tylenol given x1 for pain to right hip,effective No c/o n/v noted Pt up ad janett to toilet with walker and sba No bm noted Wound vac in place to right hip,no drainage noted Iv abts given per mar Pt resting in bed at present with no complaints Call light and phone in reach Will monitor Kristen Guadarrama RN 05/06/2019 4:35 AM CT[facility] MEDIA * Yoko Hale RCP - 05/05/2019 7:27 PM CST Problem: Oxygenation/Respiratory Function Goal: Respiratory rate will be within normal limits for patient. Description José Miguel will achieve an even and unlabored respiratory pattern. Outcome: Ongoing José Miguel continues on scheduled nebulizer tx. Lungs sound diminished this shift. Will continue to monitor and wean as able. [employer] MEDIA * Kev Ordonez MD - 05/05/2019 1:38 PM CST Internal medicine progress notes Admit Date: 04/29/2019 5:18 AM Hospital Day: 6 Assessment and Plan: # Right hip septic arthritis - Status post arthrotomy, irrigation and debridement of right hip arthroplasty on May [address] Alexander - Status post wound VAC application - Micro showing no organisms on Gram stain, anaerobics in fluids pending, blood culture no growth till date; VRE, MRSA surveillance positive - Continue IV vancomycin and rifampin PO - I will monitor vanc trough levels, renal function closely - IV and p.o. narcotic for pain control - IV nausea medication for nausea - PT OT - Ortho following closely - ID following closely - Weight bearing as tolerated on right lower extremity # COPD - Stable - Continue albuterol nebulizer solution 4 times a day - P.r.n. duo nebs ordered - Continue Symbicort and Spiriva ?? # Mild aortic regurgitation, atrial fibrillation, CAD, questionable HFpEF EF 55 percent, wall thickness mildly increased - Rate controlled - Continue metoprolol XL 50 mg once daily - Continue Eliquis 5 mg b.i.d. p.o. - Bleeding precautions - On Bumex 0.5 mg b.i.d. at home, continue the same # Pulmonary hypertension pressures of 54 mmHg on echo - Needs outpatient monitoring - Possible pulmonology referral as outpatient - Continue Eliquis, continue Bumex ?? # BPH - Continue Flomax # VALENTINA at night - BMI of 30.68 - CPAP at night DVT prophylaxis Eliquis Code status full Dispo Placement early next week possibly Home will need wound VAC PT OT The patient due to medical issues in the assessment and plan, continued hospitalization will be required. 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 He was admitted on 02/02 with a week of right hip pain; CT revealeda right hip abscess for which he underwent I/D by orthopaedics on 02/04 and 02/08. Cultures grew MRSA. The patient has been on vancomycin. ID consulted; recommending vancomycin and rifampin??through 04/01 following by chronic suppression with doxycycline 100 mg BID for at least 6 month??which she is still continuing. New Symptoms: Pt resting comfortably in chair. No acute events overnight. Ambulating well. Denied any fevers, chills, nausea, vomiting, sob, chest pain, abdominal pain. Exam Vitals: 05/05/19 0156 05/05/19 0754 05/05/19 0814 05/05/19 1151 BP: 119/64 127/70 129/71 Pulse: 90 80 88 87 Resp: 18 18 18 18 Temp: 97.4 ??F (36.3 ??C) 98.2 ??F (36.8 ??C) 97.8 ??F (36.6 ??C) SpO2: 97% 97% 99% Weight: Height: GEN: alert, well appearing, and in no distress HEENT: EOMI, PERRL, mild apple orbital redness noted; no tenderness exam.. Neck supple. No thyromegaly LUNGS: Clear to auscultation bilaterally. No abnormal respiratory effort or retraction noted. No w/r/r. CV: Regular rate and rhythm without murmur, gallop or rub. ABD: soft, nontender, nondistended, no hepatomegaly, normal bowel sounds SKIN: Normal to inspection. Warm, dry, supple, with no changes in moles or sores that will not heal. MSK: R hip wound VAC in place, postoperative tenderness present NEURO: Intact motor, sensory, cerebellar, and cranial nerve systems. PSYCH: The patient is oriented to time, place, and person Data Intake/Output Summary (Last 24 hours) at 05/05/2019 1338 Last data filed at 05/04/20192028 Gross per 24 hour Intake 120 ml Output -- Net 120 ml No data found. Recent Labs Component Name 05/05/1921405/03/1924505/02/190 05/01/19 0244 10/10/18 1515 09/19/17 0243 09/18/17 0003 WBC - 9.6 6.6 7.2 - 7.1 8.5 8.7 RBC - 4.22 4.12 3.98 - 3.94* 2.85* 3.09* HGB - 11.2* 10.8* 10.6* - 11.0* 8.1* 8.8* HCT - 38.1 36.7 35.6 - 34.5* 28.0* 29.6* MCV - 90.3 89.1 89.4 - 87.6 98.2* 95.8 MCHC - 29.4* 29.4* 29.8* - 31.9* 28.9* 29.7* RDW - - - - - 14.0 21.3* 21.4* RDWCV - 16.0* 15.9* 15.9* - - - - PLTCOUNT 157 138* 143* 148* - 183 208 199 NEUTPCT - 73.5* 63.3 62.7 - - 79.2* 79.2* LYMPHPCT - 6.1* 10.1* 11.7* - 9.3 - - EOSINPCT - - - - - 4.2 - - BASOPHILPCT - 0.6 0.8 0.8 - 0.6 - - GRANSIMMPCT - 0.4 0.5 0.3 - - - - LYMPHABS - 0.58* 0.66* 0.84* - - - - BASOABS - 0.06 0.05 0.06 - - - - NRBCAUTO - 0 0 0 - - - - - = values in this interval not displayed. Recent Labs Component Name 05/05/1921405/04/19 0307 05/03/1924505/02/19 0410 04/30/19 0242 02/03/19 0106 SODIUM 137 135* 140 138 - 138 - 134* POTASSIUM 3.1* 3.2* 4.2 3.6 - 3.4* - 4.3 CHLORIDE 102 100 104 102 - 105 - 101 CO2 25 27 24 27 - 26 - 25 BUN 20 19 16 - 24 - 19 CREATININE 0.96 1.12 1.04 1.13 - 1.00 - 1.22* GLUCOSE 98 107* 86 98 - 101 - 112* CALCIUM 9.1 9.1 9.4 9.4 - 9.5 - 9.5 ALBUMIN - - - 3.6 - 3.5 - 3.1* ALKPHOS - - - 211* - 188* - 304* ALT - - - 26 - 27 - 21 AST - - - 25 - 30 - 20 TBIL - - - 1.1 - 0.5 - 1.0 TPROT - - - 7.3 - 6.9 - 7.0 EGFR >60 >60 >60 >60 - >60 - 59 - = values in this interval not displayed. No results for input(s): MAGMGDL in the last 78753 hours. Recent Labs Component Name 09/19/17 0243 09/18/17 0003 09/17/17 0433 PHOS 2.5 2.8 3.2 Recent Labs Component Name 02/04/19 0617 COLORUA Yellow CLARITYUA Cloudy* SPECGRAVUA 1.021 PHUA 5.0 PROTEINUA Negative BLOODUA Negative LEUKOCYTEUA Negative NITRITEUA Negative GLUCOSEUA Negative KETONEUA Trace* BILIRUBINUA Negative UROBILINUA Negative Recent Labs Component Name 09/15/17 0441 09/11/17 0437 08/26/17 1420 BNP 694* 806* 552* Recent Labs Component Name 09/06/17 1157 08/26/17 1420 TROPONINI 0.027 <0.010 Recent Labs Component Name 02/03/19 0413 02/03/19 0106 02/02/19 2238 LACTICACID 0.7 0.8 0.9 Recent Labs Component Name 04/30/19 0242 02/15/19 0307 02/14/19 0346 02/04/19 0737 09/10/17 0549 09/07/17 0428 INR 1.1 1.9* 1.9* - 1.0 - - - 1.6 PT 13.9 18.9* 18.3* - 11.1 - - - 18.8* PTT - - - - 26.4 - 29.7 - 32.8 - = values in this interval not displayed. Recent Labs Component Name 02/03/19 0106 07/14/17 2212 HGBA1C 5.8 6.3 MEDICATIONS FOR CURRENT ENCOUNTER: SCHEDULED MEDICATIONS: 0.9% NaCl injection 3 mL, Intracatheter, q8h albuterol (PROVENTIL;VENTOLIN) (5 MG/ML) 0.5% nebulizer solution 2.5 mg, Inhalation, 4X/day apixaban (ELIQUIS) tablet 5 mg, Oral, BID budesonide-formoterol (SYMBICORT) 160-4.5 MCG/ACT inhaler 2 puff, Inhalation, BID bumetanide (BUMEX) tablet 0.5 mg, Oral, BID docusate sodium (COLACE) capsule 100 mg, Oral, QDAY metoprolol succinate XL 24hr (TOPROL XL) tablet 50 mg, Oral, QDAY rifAMPin (RIFADIN) capsule 300 mg, Oral, TID tamsulosin (FLOMAX) capsule 0.4 mg, Oral, AT BEDTIME tiotropium (SPIRIVA RESPIMAT) 2.5 MCG/ACT inhaler 2 puff, Inhalation, QDAY vancomycin (VANCOCIN) IV dose per pharmacy, Does not apply, DIRECTED vancomycin HCl (VANCOCIN) 1,250 mg in 0.9% NaCl 250 mL IVPB, Intravenous, q18h [COMPLETED] potassium chloride ER (KLOR-CON M) tablet 20 mEq, Oral, Once ?? [COMPLETED] potassium chloride ER (KLOR-CON M) tablet 40 mEq, Oral, Once CONTINUOUS MEDICATIONS: ?? 0.9% NaCl flush bag, Intravenous, CONTINUOUS PRN PRN MEDICATIONS: 0.9% NaCl flush bag, Intravenous, CONTINUOUS PRN 0.9% NaCl infusion rate and volume, Intravenous, Once PRN 0.9% NaCl infusion rate and volume, Intravenous, Once PRN 0.9% NaCl injection 1-10 mL, Intracatheter, PRN acetaminophen (TYLENOL) tablet 650 mg, Oral, q6h PRN fmdttgqz-nbgdchtka-hvrmqajfhzg (MAALOX;MYLANTA) suspension 15 mL, Oral, q6h PRN diphenhydrAMINE (BENADRYL) capsule 25 mg, Oral, q6h PRN diphenhydrAMINE-zinc acetate (BENADRYL EXTRA STRENGTH) 2-0.1 % cream, Topical, PRN fentaNYL (PF) (SUBLIMAZE) injection 25 mcg, Intravenous, q4h PRN hydrocortisone (DERMAREST) 1 % lotion, Topical, 4X/day PRN oxyCODONE (immediate release) (ROXICODONE) tablet 10 mg, Oral, q4h PRN ?? traMADol (ULTRAM) tablet 50 mg, Oral, q6h PRN Echo done in 05/01/2019 Allergies: PENICILLINS, LEVOFLOXACIN, SCOPOLAMINE Orthopedic Specialist: Gómez Finch Referring Physician: Kev Ordonez MD [...] changes were blunted (less than 50% variation). [employer] * Raysa Nevarez MD - 05/05/2019 12:06 PM CST Infectious Diseases Consult Note Patient's Primary Care Physician: Briana Medeiros MD Reason for Consultation: Rt hip septic arthritis Referring Physcian: Kev Ordonez MD Name: José Miguel Keys Age: [age] year old 6 Hospital course In the right hip control Was able to walk Review of systems No diarrhea No fevers chills Exam Vitals: 05/05/19 0156 05/05/19 0754 05/05/19 0814 05/05/19 1151 BP: 119/64 127/70 129/71 Pulse: 90 80 88 87 Resp: 18 18 18 18 Temp: 97.4 ??F (36.3 ??C) 98.2 ??F (36.8 ??C) 97.8 ??F (36.6 ??C) SpO2: 97% 97% 99% Weight: Height: Temp (30hrs) Max:98.8 ??F (37.1 ??C) General appearance: alert, cooperative, no distress, cooperative, no distress, appears stated age, alert HEENT: ncat, vision intact/perrl, mmm/no lesion, neck supple/nt Lungs: clear to auscultation bilaterally Heart: regular rate and rhythm, S1, S2 normal, no murmur, click, rub or gallop, Abdomen: soft, Left lower quadrant tender; bowel sounds normal; no masses, no organomegaly Extremities: rt hip swelling pain, drainage less swelling than few days ago Skin: no rash/lesion Lines: MEDICATIONS FOR CURRENT ENCOUNTER: SCHEDULED MEDICATIONS: 0.9% NaCl injection 3 mL, Intracatheter, q8h albuterol (PROVENTIL;VENTOLIN) (5 MG/ML) 0.5% nebulizer solution 2.5 mg, Inhalation, 4X/day apixaban (ELIQUIS) tablet 5 mg, Oral, BID budesonide-formoterol (SYMBICORT) 160-4.5 MCG/ACT inhaler 2 puff, Inhalation, BID bumetanide (BUMEX) tablet 0.5 mg, Oral, BID docusate sodium (COLACE) capsule 100 mg, Oral, QDAY metoprolol succinate XL 24hr (TOPROL XL) tablet 50 mg, Oral, QDAY rifAMPin (RIFADIN) capsule 300 mg, Oral, TID tamsulosin (FLOMAX) capsule 0.4 mg, Oral, AT BEDTIME tiotropium (SPIRIVA RESPIMAT) 2.5 MCG/ACT inhaler 2 puff, Inhalation, QDAY vancomycin (VANCOCIN) IV dose per pharmacy, Does not apply, DIRECTED vancomycin HCl (VANCOCIN) 1,250 mg in 0.9% NaCl 250 mL IVPB, Intravenous, q18h [COMPLETED] potassium chloride ER (KLOR-CON M) tablet 20 mEq, Oral, Once ?? [COMPLETED] potassium chloride ER (KLOR-CON M) tablet 40 mEq, Oral, Once Data Recent Labs Component Name 05/05/19 0215 05/03/19 0246 05/02/19 0410 05/01/19 0244 WBC - 9.6 6.6 7.2 HGB - 11.2* 10.8* 10.6* HCT - 38.1 36.7 35.6 PLTCOUNT 157 138* 143* 148* Recent Labs Component Name 05/05/19 0215 05/04/19 0307 05/03/19 0246 SODIUM 137 135* 140 POTASSIUM 3.1* 3.2* 4.2 CHLORIDE 102 100 104 CO2 25 27 24 BUN 20 19 16 CREATININE 0.96 1.12 1.04 GLUCOSE 98 107* 86 CALCIUM 9.1 9.1 9.4 Recent Labs Component Name 05/02/19 0410 04/30/19 0242 02/03/19 0106 ALBUMIN 3.6 3.5 3.1* ALKPHOS 211* 188* 304* ALT 26 27 21 AST 25 30 20 TBIL 1.1 0.5 1.0 TPROT 7.3 6.9 7.0 No results for input(s): CDIFFTOXINAB in the last 98412 hours. Recent Labs Component Name 04/24/19 1141 SEDRATE 70* Recent Labs Component Name 04/24/19 1140 08/15/17 0348 08/09/17 0745 CRP 1.41* 4.1* 32.0* No results for input(s): CK in the last 86080 hours. .No results for input(s): VANCOTROUGH, VANCOPEAK, VANCSERIES in the last 75030 hours. 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 doxycycline for 2 weeks followed by chronic suppression daily Please be advised that part of this text was done using voice recognition software. Errors may havebeen missed upon review. Raysa Nevarez MD [employer] * Kristie Martinez, PT - 05/05/2019 10:20 AM CST Physical Therapy Treatment Summary Chart review completed. Nursing consented for PT. Explained purpose of PT and patient consented to participate in therapy. SUBJECTIVE: Patient was received sitting upright in chair and agreeable to participate in PT. Patient's Goal for the Day: Get stronger Pain Assessment: Pain Rating Score #: 5 Pain Location : Hip Pain Orientation: Right OBJECTIVE: Precautions: Contact isolation Transfers: Sit to Stand: Minimal Assistance;Stand By Assist Stand to Sit: Minimal Assistance;Stand By Assist Mobility: Distance Ambulated: 75 FEET(x2 with seated rest break) Ambulation: Assistive Device: Gait Belt;Walker-2 Wheeled Ambulation: Level of Assistance: Minimum Assistance;Stand By Assist Activity Tolerance and O2 Requirements: Activity Tolerance: Requires seated rest breaks O2 DEVICE: Room Air - None ASSESSMENT: Patient was received sitting upright in chair and agreeable to participate in PT. Patient required min <> SBA for transfers and ambulation this date. Patient demonstrated good safety awareness with ambulation and transfers without cueing. Patient ambulated 75 feet x 2 with seated rest break this date demonstrating forward trunk flexion and decreased bernarda. Call light and phone in reach. All lines, monitors, IV's, equipment in place and intact pre and post visit. RNAlvino, notified of patient's performance/location end of session. Pt educated in PT plan of care, fall precautions, and benefits of OOB activity. Please refer to the Filed Flowsheet for further details. Refer to Plan of Care for PT goals. RECOMMENDATIONS/PLAN: Continued skilled PT during acute care stay and discharge home with HH PT when medically appropriate. PT Discharge Recommendations: Home;Home Health PT If this is the last Physical Therapy visit, this note serves as the discharge summary. Kristie Martinez, PT x [phone] [employer] MEDIA * Cheryl Mccoy, PharmD - 05/05/2019 9:41 AM CST Vancomycin Per Pharmacy (Day 7) 68 year old male receiving vancomycin 1250 mg IV every 18 hours for the management of MRSA (+) lefttotal hip arthroplasty infection. ID service following. Vitals: Height: 5' 11 (180.3 cm) (04/29/19525) Weight: 99.8 kg (220 lb) (04/29/19525) Temp (24hrs) Max:98.8 ??F (37.1 ??C) Current Labs: Recent Labs Component Name 05/05/19 0215 05/04/19 0307 05/03/19 0246 05/02/19 0410 05/01/19 0244 BUN 20 19 16 20 25 CREATININE 0.96 1.12 1.04 1.13 1.04 WBC - - 9.6 6.6 7.2 Creatinine Clearance: Estimated Creatinine Clearance: 82.7 mL/min (based on SCr of 0.96 mg/dL). Cultures: 04/29 Blood x 2: NGTD 05/02 Right hip fluid: NGTD Right hip fluid (s/p irrigation): NGTD Vancomycin goal: 15-20 mcg/ml (Loading Dose) Recent Labs Component Name 05/03/19 1321 05/01/19 0749 04/29/19 0644 02/15/19 1650 02/07/19 0409 02/06/19 0419 VANCTROUGH 22.9* 8.1* - 16.5 - - - VANCORNDM - - 10.5 - - 20.9 19.2 - = values in this interval not displayed. A/P SCr improved. WBC has been stable. Trough level on 1500 mg IV q18h regimen was above goal. Dose reduced to 1250 mg on 05/03. Will continue the current regimen at this time. Will obtain a vancomycin level on 05/06. Will continue to monitor and adjust as appropriate. Cheryl Mccoy, EliazarNia 05/05/2019 9:41 AM CTOR MEDIA * Alberto Shell MD - 05/05/2019 8:54 AM CST [facility] Orthopedic Surgery Daily Progress Note José Miguel Keys, 68 year old, male : 1950 CSN: [id number] Primary Care Physician: Briana Medeiros MD - Admission Date/Time: 04/29/2019 5:18 AM - Hospital Day: 6 Subjective Patient seen and examined this AM on rounds. No new problems or issues overnight. Pain controlled this morning. Denies any new numbness/paresthesias. POD#3 s/p I&D with closure of Right hip wound. Walked 120ft. With PT yesterday. OR cultures still with no growth to date. Vitals Temp (24hrs), Av.1 ??F (36.7 ??C), Min:97.4 ??F (36.3 ??C), Max:98.8 ??F (37.1 ??C) BP 127/70 Pulse 88 Temp 98.2 ??F (36.8 ??C) (Oral) Resp 18 Ht 5' 11 (1.803 m) Wt 220 lb (99.8 kg) SpO2 97% BMI 30.68 kg/m2 Labs Recent Labs Component Name 05/05/19 0215 05/03/19 0246 05/02/19 0410 05/01/19 0244 WBC - 9.6 6.6 7.2 HGB - 11.2* 10.8* 10.6* HCT - 38.1 36.7 35.6 PLTCOUNT 157 138* 143* 148* Recent Labs Component Name 04/30/19 0242 02/15/19 0307 02/14/19 0346 INR 1.1 1.9* 1.9* Cultures 05/02 OR cultures with NGTD Physical Exam General appearance: Awake, cooperative, no acute distress, Right lower extremity: -Appearance: Prevena incisional [place] intact and functioning -Tenderness: not assessed -ROM: not assessed -Motor: Able to plantarflex ankle, able to dorsiflex ankle, able to plantarflex great toe, able to dorsiflex great toe -Sensation: SILT to dorsal and plantar foot -Vascular: 2+ DP pulse with toes warm and well perfused Assessment/Plan Active Problems: Infection of right prosthetic hip joint Patient is a??68 year old,??male??with infected right total hip arthroplasty from 2005 -s/p right hip I&D and wound vac application on??02/04/2019??with Dr. Alexander - s/p:??Right hip I&D with Femoral head and poly exchange with delayed primary closure 02/08/[address] Alexander - s/p: Irrigation and debridement of right hip abscess 05/02/[address] Alexander 1. Activity/Weight-bearing status: WBAT RLE 2. Current Dispo: OK for discharge from Orthopedic standpoint. Plan for home likely early next week 3. Anticoagulation Status: ASA 325 BID 4. Antibiotics: Per ID. Currently on Vanc and Rifampin 5. Wound care: Continue current dressings (wound is closed, he has an incisional wound vac) until POD#7, at that time home health will change to a new Prevena (currently at bedside in package) 6. Diet: regular 7. PT/OT 8. Pain Control 9. Orthopedics will continue to follow. Please page with any questions or concerns Please give the following instructions to the patient upon discharge/transfer: ?? Hip Precautions as follows: ?? Posterior hip precautions- no flexion past 90 degrees, no adduction past midline, no internal rotation ?? Thigh high FRANKLIN hose when up during the day. May remove at night while sleeping ?? Patient may discontinue compression stocking after two weeks. ?? Ankle flexion exercises every hour during the day to prevent swelling and deep vein thrombosis prevention. ?? Continue EC ASA 325 mg po bid for one month for DVT prophylaxis. ?? If on coumadin: , weekly INR's please fax results to clinic, c/o DONTAE Alonzo ( [facility]). Plan for 4 weeks of anticoagulation with a target INR of 1.5-1.8 ?? Keep wound clean and dry. Change surgical dressing 7 days after surgery. After that you should perform daily or every other day dressing changes with dry gauze and tape as needed for saturation. After diogenes/sutures have been removed it is OK to shower but leave wound covered with a dressing inthe shower. After shower, remove the wet dressing, pat dry, and apply antibiotic ointment over wound then place a clean dry dressing. ?? Apply an antibiotic ointment (neosporin/bacitracin) to incision daily after initial surgical dressing has been removed ?? Do not get incision wet in shower until diogenes are removed. No tub soaks. No scrubbing around incision. ?? Call [phone] to schedule the first follow-up appointment with Dr. Alexander in 3 week(s) or for any questions Alberto Shell MD 05/05/2019 8:54 AM [employer] MEDIA * Cleo Cota RCP - 05/05/2019 7:56 AM CST Mr. Keys remains on scheduled neb tx's to maintain home regime therapy of 4x's daily.Cleo Cota, Respiratory Care Practitioner 05/05/2019 7:57 AM CTOR MEDIA * Jayshree Gilliam - 05/05/2019 4:25 AM CST Pt a&ox4 able to make need know. at bed side. Pt noted requesting pain medication and benadryl for inching. Upon reassessment pt noted both effective. Pt noted having loose stool during night x1, pt doesn't complain of upset stomach nor foul smelling bowel. Pt wearing cpap from home. Resp even and non labored. Wound vac to left hip intact with no drainage output.vs wnl.call light in place Will continue to monitor. Problem: Low Fall Risk (Score 7-10) Goal: Patient will remain as independent as possible. Outcome: Ongoing Goal: Patient will have lower fall risk. Outcome: Ongoing Goal: Patient will have lower injury risk. Outcome: Ongoing Goal: Patient will remain safe from falls and injury. Outcome: Ongoing Problem: Infection Goal: Signs and symptoms of infections are decreased or avoided Outcome: Ongoing Problem: Isolation Goal: Prevent Transmission of Infection Outcome: Ongoing Problem: Pain/Discomfort Goal: Patient exhibits reduced pain/discomfort as evidenced by pain scores Outcome: Ongoing Goal: Patient uses pharmacological and non-pharmacological pain management strategies. Outcome: Ongoing Goal: Patient verbalizes acceptable level of pain relief and ability to engage in desired activity. Outcome: Ongoing Problem: Nutrient: Increased nutrient needs (specify) Goal: Total intake will meet estimated nutrient needs Description Estimated Needs: KCAL: 1996kcal(20kcal/kg of bw) Protein (g): 99-119gm(1-1.2gm/kg of bw) Fluid (ml): 1 ml/kcal Needs based on: Kcal/kg- (Comment) Recommended Access Route: PO Outcome: Ongoing Problem: Mobility Goal: STG - Patient will ambulate Description 300'x1 WBAT R LE with w/w, modified indep Outcome: Ongoing Goal: STG - Patient will ambulate up and down a curb/step Description Modified indep with w/w, WBAT R LE Outcome: Ongoing Problem: Transfers Goal: STG - Transfer from bed to chair Description Modified indep with w/w, WBAT R LE Outcome: Ongoing Goal: STG - Patient to transfer to and from sit to supine Description Modified indep, WBAT R LE Outcome: Ongoing Goal: STG - Patient will transfer sit to and from stand Description Modified indep with w/w, WBAT R LE Outcome: Ongoing Problem: Oxygenation/Respiratory Function Goal: Patent airway Outcome: Ongoing Goal: Respiratory rate will be within normal limits for patient. Outcome: Ongoing Goal: Patient exhibits no evidence of increased respiratory distress Outcome: Ongoing Goal: Patient/Family will demonstrate knowledge of self-care management skills Outcome: Ongoing [facility]OR MEDIA * Genevieve Crowder RCP - 05/04/2019 9:20 PM CST Problem: Oxygenation/Respiratory Function Goal: Patent airway Outcome: Ongoing Goal: Respiratory rate will be within normal limits for patient. Outcome: Ongoing Mr. Keys is taking Q 6 neb treatments along with BID inhalers,lung sounds are clear diminished. RTwill continue to monitor.Genevieve Crowder Respiratory Care Practitioner 05/04/2019 9:21 PM CTOR MEDIA * Nika Montoya RN - 05/04/2019 7:02 PM CST Refused narc pain control. Tylenol has been effective. Aware of safety limitations. 1 person assistwith transfers and toileting for safety and assist with tubing. CTOR MEDIA * Nika Montoya RN - 05/04/2019 7:00 PM CST Shift report Pleasant today; Right sided IV infiltrated. (Odalis took care of this) Applied warm compress. He is worried about it. currently at bedside. New PRN order for mylanta at his request. 1 asssit (withwound vac) to transfer and toilet. CTOR MEDIA * Tammy Haynes OT - 05/04/2019 1:27 PM CST Occupational Therapy Initial Evaluation OT orders received. Chart reviewed for diagnosis and medical systems review. Nursing consented for OT. Patient consented to participate in therapy. Admission History: 68 y/o male admitted with infected R ARNALDO. S/p R hip I&D on 05/02/19. Pt has a hx of R hip I&D and poly exchange on 02/08/19 Precautions: RLE WBAT, posterior hip precautions Past Medical History: Diagnosis Date ??? Actinic [...] ??? S/P PICC central line placement 02/13/2019 [facility] VAT R basilic ??? Seizures ??? Squamous cell carcinoma ??? 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 Pt's spouse is home and can help as needed. Home Situation: Type of Residence: Private Residence Lives with:: Spouse Home Structure: (tri level home) Steps to Enter: 1(from back door) Handrails: Indoor Ramp: No Primary Bedroom: Second Floor Primary Bathroom: First Floor Bathroom : Tub/Shower Combo Equipment At Home: Commode-Bedside;Walker-2 Wheeled;Walker-4 Wheeled with Seat;Wheelchair-Standard;Certified Juvenile Probation Officer;Dressing Stick;Sock Aid(drop arm BSC) Prior Level of Function: Mobility: Ambulate-In Home ;Independent;With Assistive Device Fallen Within 6 Mos: No Have Help at Home?: Yes, there is help at home now(spouse can assist prn) Level of Help Sufficient?: Yes Oxygen at Home: No Activity at Home: Sedentary Who manages medications?: self Vision: Corrected with glasses Hearing Exceptions: No impairment OBJECTIVE: Cognition: Level of Consciousness-Adult: Alert Cognition: Follows Commands-Consistent;Attention/concentration-normal for age;Processing-Appropriate Functional Level of Impairment: Functional Level of Comprehension: Supervision, set-up, cues Functional Level of Expression: Supervision, set-up, cues Functional Level of Social Interaction: Supervision, set-up, cues Functional Level of Memory: Supervision, set-up, cues Functional Level of Problem Solving: Supervision, set-up, cues ADLs (Based on observation and clinical judgement): Feeding: Modified Drummonds Oral Facial Hygiene: Stand By Assist(limited endurance standing at sink) Bathing: Minimal Assistance(seated) Upper Body Dressing: Set-up Lower Body Dressing: Minimal Assistance(with AE at home) Toileting: Minimal Assistance;Stand By Assist Transfers: Sit to Stand: Minimal Assistance;Stand By Assist Stand to Sit: Minimal Assistance;Stand By Assist Toilet Transfers: Minimal Assistance;Stand By Assist(raised toilet) Activity Tolerance/Vitals: Activity Tolerance: Requires rest breaks O2 DEVICE: Room Air - None INTERVENTION/ASSESSMENT: Treatment this date: Initial OT evaluation completed including bathing, dressing, grooming, and functional mobility/transfers in addition to BUE ROM/strength testing in order to establish goals for D/C. Pt sitting in recliner upon OT arrival. Reports having all necessary equipment at home to safely complete LB ADLs with PHP. Pt ambulates in room with wwr with min/SBA; max A for wound vac management. Pt resting in recliner at end of session. --Problem list: Decreased strength, decreased ROM, decreased endurance, decreased balance, impairedfunctional mobility, decreased coordination, impaired safety awareness, cognitive impairment, impaired cardiopulmonary function, decreased knowledge of condition, decreased pain tolerance, need for fa niki/caregiver training. --Functional limitation: Decreased independence with transfers, decreased ability to perform ADLs, decreased UE strength, decreased safety with functional mobility. --Rationale for therapy: Patient will benefit from OT to address the above issues. Patient will be seen for: ADL retraining, functional transfers, balance, endurance, exercise. Pt educated in OT plan of care, fall precautions, and benefits of participating in ADL tasks. Refer to the Plan of Care for OT goals. Please refer to Filed Flowsheet OT Evaluation for further details. RECOMMENDATIONS/PLAN: Pt would benefit from continued OT (HH OT) at d/c to maximize ADL and functional mobility/transfer independence and safety. Pt politely declines further OT during acute stay. Will complete OT orders. All vitals stable throughout visit; all lines, monitors, IV's and equipment in place and intact preand post visit. Nursing notified. If this is the last Occupational Therapy visit, this serves as the discharge summary. Tammy Haynes OTD, OTR/L Ascom [phone] CTOR MEDIA * Nika Montoya RN - 05/04/2019 12:59 PM CST 1305 Medication flagged as too soon. Nora at pharmacy notified and to change time to 1600. Medication already Prepared. Insturctions given to disregard and a new one will be sent. CTOR MEDIA * Sai Padilla, PT - 05/04/2019 12:11 PM CST Physical Therapy Treatment Summary Chart review completed. Nursing consented for PT. Explained purpose of PT and patient consented to participate in therapy. SUBJECTIVE: The patient received sitting up in recliner , agreed to participate in PT session Patient's Goal for the Day: To ambulate Pain Assessment: Pain Rating Score #: 8 Pain Location : Hip Pain Orientation: Right Pain Quality: Aching OBJECTIVE: Orientation Level: Oriented X4 Precautions: Wound vac Bed Mobility: Rolling: Activity Does Not Occur Supine to Sit: Activity Does Not Occur Sit to Supine: Activity Does Not Occur(patient laredy up in chiar ) Transfers: Sit to Stand: Minimal Assistance;Requires Verbal Cues for Safety;Requires Verbal Cues for Technique Stand to Sit: Minimal Assistance;Requires Verbal Cues for Safety;Requires Verbal Cues for Technique Mobility: Distance Ambulated: 50 FEET(+70, with sitting rest break in between ) Ambulation: Assistive Device: Gait Belt;Walker-2 Wheeled(chair follow, wound vac ) Ambulation: Level of Assistance: Minimum Assistance;Requires Verbal Cues for Safety;Requires VerbalCues for Technique Ambulation: Gait Deviations: (Base of Support - Increased;Bernarda - Decreased;Increased Tr) Balance: G sitting -F standing balance Activity Tolerance and O2 Requirements: Decreased activity Tolerance on room air Vital Signs: VSS ASSESSMENT: The patient received sitting up in recliner , reports 4/10 pain . Completed sit to stand with min A, ambulated 50 + 70 feet with 2ww with min A with sitting rest break in between . Left sitting in recliner at the end of the session .Wound vac in place Call light and phone in reach All lines, monitors, IV's, equipment in place and intact pre and post visit. RN, notified of patient's performance/location end of session. Pt educated in PT plan of care, fall precautions, and benefits of OOB activity Please refer to the Filed Flowsheet for further details. Refer to Plan of Care for PT goals. RECOMMENDATIONS/PLAN: Will benefit with continued PT in hospital , hhpt + 24 x 7 A at home vs acute rehab is recommended If this is the last Physical Therapy visit, this note serves as the discharge summary. Sai Padilla, PT x [phone] CTOR MEDIA * Fay Otero, CINDER BLOCK MASON - 05/04/2019 10:41 AM CST Social Work Progress Note Discharge Plan Disposition: home with [facility] - SNF Transportation: Transportation at discharge: Family Anticipated Discharge Date: Anticipated Discharge Date: 05/03/19 Contacts: Trinity Keys, spouse, Comments: None Fay Otero, CINDER BLOCK MASON [phone] CTOR MEDIA * Tammy Haynes OT - 05/04/2019 9:44 AM CST Occupational therapy orders received; chart review completed. Unable to complete visit due to pt eating breakfast (just started). Will attempt to see patient at a later date/time as OT schedule allows. Tammy Haynes OTD, OTR/L Ascom [phone] CTOR MEDIA * Michelle Pratt MD - 05/04/2019 9:30 AM CST Internal medicine progress notes Admit Date: 04/29/2019 5:18 AM Hospital Day: 5 Assessment and Plan: Right hip septic arthritis Status post arthrotomy, irrigation and debridement of right hip arthroplasty on May [address] Alexander #POD 2 Status post wound VAC application Micro showing no organisms on Gram stain, anaerobics in fluids pending, blood culture no growth till date; VRE, MRSA surveillance positive Continue IV vancomycin and rifampin PO I will monitor vanc trough levels, renal function closely IV and p.o. narcotic for pain control IV nausea medication for nausea PT OT Ortho following closely ID following closely Weight bearing as tolerated on right lower extremity COPD Stable Continue albuterol nebulizer solution 4 times a day P.r.n. duo nebs ordered Continue Symbicort and Spiriva ?? Mild aortic regurgitation, atrial fibrillation, CAD, questionable HFpEF EF 55 percent, wall thickness mildly increased Rate controlled Continue metoprolol XL 50 mg once daily Continue Eliquis 5 mg b.i.d. p.o. Bleeding precautions On Bumex 0.5 mg b.i.d. at home, continue the same Pulmonary hypertension pressures of 54 mmHg on echo Needs outpatient monitoring Possible pulmonology referral as outpatient Continue Eliquis, continue Bumex ?? BPH Continue Flomax VALENTINA at night BMI of 30.68 CPAP at night DVT prophylaxis Eliquis Code status full Dispo Placement early next week possibly Home will need wound VAC PT OT The patient due to medical issues in the assessment and plan, continued hospitalization will be required. Michelle Pratt MD Clinical Course: José Miguel Keys is a 68 yo male??with a history of CAD,??atrial fibrillation, COPD, cirrhosis, VALENTINA and complex history of MRSA bacteremia and epidural abscess in 2018.He has a history of right total hip arthoplasty in 2005. He was admitted on 02/02 with a week of right hip pain; CT revealeda right hip abscess for which he underwent I/D by orthopaedics on 02/04 and 02/08. Cultures grew MRSA. The patient has been on vancomycin. ID consulted; recommending vancomycin and rifampin??through 04/01 following by chronic suppression with doxycycline 100 mg BID for at least 6 month??which she is still continuing. New Symptoms: Worked with physical therapy, occupational therapy today. Had initially right- sided abdominal pain thought due to gas. Requesting Mylanta. For indigestion. Complaining of pain 10/13. Received her oral petey, tramadol. No fever or chills. Up in the chair. Other ROS neg. Exam Vitals: 05/04/19 0456 05/04/19 0750 05/04/19 0916 05/04/19 1441 BP: 122/76 131/80 Pulse: 82 78 106 98 Resp: 18 16 20 18 Temp: 98.7 ??F (37.1 ??C) 98.1 ??F (36.7 ??C) SpO2: 98% 100% Weight: Height: GEN: alert, well appearing, and in no distress HEENT: EOMI, PERRL, mild apple orbital redness noted; no tenderness exam.. Neck supple. No thyromegaly LUNGS: Clear to auscultation bilaterally. No abnormal respiratory effort or retraction noted. No w/r/r. CV: Regular rate and rhythm without murmur, gallop or rub. ABD: soft, nontender, nondistended, no hepatomegaly, normal bowel sounds SKIN: Normal to inspection. Warm, dry, supple, with no changes in moles or sores that will not heal. MSK: R hip wound VAC in place, postoperative tenderness present NEURO: Intact motor, sensory, cerebellar, and cranial nerve systems. PSYCH: The patient is oriented to time, place, and person Data Intake/Output Summary (Last 24 hours) at 05/04/2019 1612 Last data filed at 05/03/2019 1920 Gross per 24 hour Intake 480 ml Output -- Net 480 ml No data found. Recent Labs Component Name 05/03/19 0246 05/02/19 0410 05/01/19 0244 10/10/18 1515 09/19/17 0243 09/18/17 0003 WBC 9.6 6.6 7.2 - 7.1 8.5 8.7 RBC 4.22 4.12 3.98 - 3.94* 2.85* 3.09* HGB 11.2* 10.8* 10.6* - 11.0* 8.1* 8.8* HCT 38.1 36.7 35.6 - 34.5* 28.0* 29.6* MCV 90.3 89.1 89.4 - 87.6 98.2* 95.8 MCHC 29.4* 29.4* 29.8* - 31.9* 28.9* 29.7* RDW - - - - 14.0 21.3* 21.4* RDWCV 16.0* 15.9* 15.9* - - - - PLTCOUNT 138* 143* 148* - 183 208 199 NEUTPCT 73.5* 63.3 62.7 - - 79.2* 79.2* LYMPHPCT 6.1* 10.1* 11.7* - 9.3 - - EOSINPCT - - - - 4.2 - - BASOPHILPCT 0.6 0.8 0.8 - 0.6 - - GRANSIMMPCT 0.4 0.5 0.3 - - - - LYMPHABS 0.58* 0.66* 0.84* - - - - BASOABS 0.06 0.05 0.06 - - - - NRBCAUTO 0 0 0 - - - - - = values in this interval not displayed. Recent Labs Component Name 05/04/19 0307 05/03/19 0246 05/02/19 0410 04/30/19 0242 02/03/19 0106 SODIUM 135* 140 138 - 138 - 134* POTASSIUM 3.2* 4.2 3.6 - 3.4* - 4.3 CHLORIDE 100 104 102 - 105 - 101 CO2 27 24 27 - 26 - 25 BUN 19 16 - 24 - 19 CREATININE 1.12 1.04 1.13 - 1.00 - 1.22* GLUCOSE 107* 86 98 - 101 - 112* CALCIUM 9.1 9.4 9.4 - 9.5 - 9.5 ALBUMIN - - 3.6 - 3.5 - 3.1* ALKPHOS - - 211* - 188* - 304* ALT - - - - AST - - - - TBIL - - 1.1 - 0.5 - 1.0 TPROT - - 7.3 - 6.9 - 7.0 EGFR >60 >60 >60 - >60 - 59 - = values in this interval not displayed. No results for input(s): MAGMGDL in the last 54620 hours. Recent Labs Component Name 09/19/17 0243 09/18/17 0003 09/17/17 0433 PHOS 2.5 2.8 3.2 Recent Labs Component Name 02/04/19 0617 COLORUA Yellow CLARITYUA Cloudy* SPECGRAVUA 1.021 PHUA 5.0 PROTEINUA Negative BLOODUA Negative LEUKOCYTEUA Negative NITRITEUA Negative GLUCOSEUA Negative KETONEUA Trace* BILIRUBINUA Negative UROBILINUA Negative Recent Labs Component Name 09/15/17 0441 09/11/17 0437 08/26/17 1420 BNP 694* 806* 552* Recent Labs Component Name 09/06/17 1157 08/26/17 1420 TROPONINI 0.027 <0.010 Recent Labs Component Name 02/03/19 0413 02/03/19 0106 02/02/19 2238 LACTICACID 0.7 0.8 0.9 Recent Labs Component Name 04/30/19 0242 02/15/19 0307 02/14/19 0346 02/04/19 0737 09/10/17 0549 09/07/17 0428 INR 1.1 1.9* 1.9* - 1.0 - - - 1.6 PT 13.9 18.9* 18.3* - 11.1 - - - 18.8* PTT - - - - 26.4 - 29.7 - 32.8 - = values in this interval not displayed. Recent Labs Component Name 02/03/19 0106 07/14/17 2212 HGBA1C 5.8 6.3 MEDICATIONS FOR CURRENT ENCOUNTER: SCHEDULED MEDICATIONS: 0.9% NaCl injection 3 mL, Intracatheter, q8h albuterol (PROVENTIL;VENTOLIN) (5 MG/ML) 0.5% nebulizer solution 2.5 mg, Inhalation, 4X/day apixaban (ELIQUIS) tablet 5 mg, Oral, BID budesonide-formoterol (SYMBICORT) 160-4.5 MCG/ACT inhaler 2 puff, Inhalation, BID bumetanide (BUMEX) tablet 0.5 mg, Oral, BID docusate sodium (COLACE) capsule 100 mg, Oral, QDAY metoprolol succinate XL 24hr (TOPROL XL) tablet 50 mg, Oral, QDAY rifAMPin (RIFADIN) capsule 300 mg, Oral, TID tamsulosin (FLOMAX) capsule 0.4 mg, Oral, AT BEDTIME tiotropium (SPIRIVA RESPIMAT) 2.5 MCG/ACT inhaler 2 puff, Inhalation, QDAY vancomycin (VANCOCIN) IV dose per pharmacy, Does not apply, DIRECTED vancomycin HCl (VANCOCIN) 1,250 mg in 0.9% NaCl 250 mL IVPB, Intravenous, q18h ?? [COMPLETED] potassium chloride ER (KLOR-CON M) tablet 20 mEq, Oral, Once CONTINUOUS MEDICATIONS: ?? 0.9% NaCl flush bag, Intravenous, CONTINUOUS PRN PRN MEDICATIONS: 0.9% NaCl flush bag, Intravenous, CONTINUOUS PRN 0.9% NaCl infusion rate and volume, Intravenous, Once PRN 0.9% NaCl infusion rate and volume, Intravenous, Once PRN 0.9% NaCl injection 1-10 mL, Intracatheter, PRN acetaminophen (TYLENOL) tablet 650 mg, Oral, q6h PRN nhqnyksg-qquvcrkis-adpuuunktlt (MAALOX;MYLANTA) suspension 15 mL, Oral, q6h PRN diphenhydrAMINE (BENADRYL) capsule 25 mg, Oral, q6h PRN diphenhydrAMINE-zinc acetate (BENADRYL EXTRA STRENGTH) 2-0.1 % cream, Topical, PRN fentaNYL (PF) (SUBLIMAZE) injection 25 mcg, Intravenous, q4h PRN hydrocortisone (DERMAREST) 1 % lotion, Topical, 4X/day PRN oxyCODONE (immediate release) (ROXICODONE) tablet 10 mg, Oral, q4h PRN ?? traMADol (ULTRAM) tablet 50 mg, Oral, q6h PRN Echo done in 05/01/2019 Allergies: PENICILLINS, LEVOFLOXACIN, SCOPOLAMINE Orthopedic Specialist: Gómez Finch Referring Physician: Kev Ordonez MD [...] changes were blunted (less than 50% variation). CTOR MEDIA * Sumaya, Alberto Dhillon MD - 05/04/2019 8:55 AM CST [facility] Orthopedic Surgery Daily Progress Note José Miguel Keys, 68 year old, male : 1950 CSN: [id number] Primary Care Physician: Briana Medeiros MD - Admission Date/Time: 04/29/2019 5:18 AM - Hospital Day: 5 Subjective Patient seen and examined this AM on rounds. No new problems or issues overnight. Pain controlled this morning. Denies any new numbness/paresthesias. POD#2 s/p I&D with closure of Right hip wound. Walked 50ft. With PT yesterday. OR cultures with no growth to date. Vitals Temp (24hrs), Av.5 ??F (36.9 ??C), Min:97.8 ??F (36.6 ??C), Max:98.8 ??F (37.1 ??C) BP 122/76 Pulse 78 Temp 98.7 ??F (37.1 ??C) (Axillary) Resp 16 Ht 5' 11 (1.803 m) Wt 220 lb (99.8 kg) SpO2 98% BMI 30.68 kg/m2 Labs Recent Labs Component Name 05/03/19 0246 05/02/19 0410 05/01/19 0244 WBC 9.6 6.6 7.2 HGB 11.2* 10.8* 10.6* HCT 38.1 36.7 35.6 PLTCOUNT 138* 143* 148* Recent Labs Component Name 04/30/19 0242 02/15/19 0307 02/14/19 0346 INR 1.1 1.9* 1.9* Cultures 05/02 OR cultures with NGTD Physical Exam General appearance: Awake, cooperative, no acute distress, Right lower extremity: -Appearance: Prevena incisional [place] intact and functioning -Tenderness: not assessed -ROM: not assessed -Motor: Able to plantarflex ankle, able to dorsiflex ankle, able to plantarflex great toe, able to dorsiflex great toe -Sensation: SILT to dorsal and plantar foot -Vascular: 2+ DP pulse with toes warm and well perfused Assessment/Plan Active Problems: Infection of right prosthetic hip joint Patient is a??68 year old,??male??with infected right total hip arthroplasty from 2005 -s/p right hip I&D and wound vac application on??02/04/2019??with Dr. Alexander - s/p:??Right hip I&D with Femoral head and poly exchange with delayed primary closure 02/08/[address] Alexander - s/p: Irrigation and debridement of right hip abscess 05/02/[address] Alexander 1. Activity/Weight-bearing status: WBAT RLE 2. Current Dispo: home likely early next week 3. Anticoagulation Status: ASA 325 BID 4. Antibiotics: Per ID. Currently on Vanc and Rifampin 5. Wound care: Continue current dressings (wound is closed, he has an incisional wound vac) until POD#7, at that time home health will change to a new Prevena (currently at bedside in package) 6. Diet: regular 7. PT/OT 8. Pain Control 9. Orthopedics will continue to follow. Please page with any questions or concerns Please give the following instructions to the patient upon discharge/transfer: ?? Hip Precautions as follows: ?? Posterior hip precautions- no flexion past 90 degrees, no adduction past midline, no internal rotation ?? Thigh high FRANKLIN hose when up during the day. May remove at night while sleeping ?? Patient may discontinue compression stocking after two weeks. ?? Ankle flexion exercises every hour during the day to prevent swelling and deep vein thrombosis prevention. ?? Continue EC ASA 325 mg po bid for one month for DVT prophylaxis. ?? If on coumadin: , weekly INR's please fax results to clinic, c/o DONTAE Alonzo ( [facility]). Plan for 4 weeks of anticoagulation with a target INR of 1.5-1.8 ?? Keep wound clean and dry. Change surgical dressing 7 days after surgery. After that you should perform daily or every other day dressing changes with dry gauze and tape as needed for saturation. After diogenes/sutures have been removed it is OK to shower but leave wound covered with a dressing inthe shower. After shower, remove the wet dressing, pat dry, and apply antibiotic ointment over wound then place a clean dry dressing. ?? Apply an antibiotic ointment (neosporin/bacitracin) to incision daily after initial surgical dressing has been removed ?? Do not get incision wet in shower until diogenes are removed. No tub soaks. No scrubbing around incision. ?? Call [phone] to schedule the first follow-up appointment with Dr. Alexander in 3 week(s) or for any questions Alberto Shell MD 05/04/2019 8:56 AM CTOR MEDIA * Raysa Nevarez MD - 05/04/2019 7:11 AM CST Infectious Diseases Consult Note Patient's Primary Care Physician: Briana Medeiros MD Reason for Consultation: Rt hip septic arthritis Referring Physcian: Kev Ordonez MD Name: José Miguel Keys Age: [age] year old 5 Hospital course Abdominal pain Had a bowel movement after 3 days of being constipated no blood in the stool Review of systems No diarrhea No fevers chills Exam Vitals: 05/04/19 0312 05/04/19 0325 05/04/19 0330 05/04/19 0456 BP: 122/76 Pulse: 80 82 Resp: 20 20 20 18 Temp: 98.7 ??F (37.1 ??C) SpO2: 98% Weight: Height: Temp (30hrs) Max:98.8 ??F (37.1 ??C) General appearance: alert, cooperative, no distress, cooperative, no distress, appears stated age, alert HEENT: ncat, vision intact/perrl, mmm/no lesion, neck supple/nt Lungs: clear to auscultation bilaterally Heart: regular rate and rhythm, S1, S2 normal, no murmur, click, rub or gallop, Abdomen: soft, Left lower quadrant tender; bowel sounds normal; no masses, no organomegaly Extremities: rt hip swelling pain, drainage less swelling than few days ago Skin: no rash/lesion Lines: MEDICATIONS FOR CURRENT ENCOUNTER: SCHEDULED MEDICATIONS: 0.9% NaCl injection 3 mL, Intracatheter, q8h albuterol (PROVENTIL;VENTOLIN) (5 MG/ML) 0.5% nebulizer solution 2.5 mg, Inhalation, 4X/day apixaban (ELIQUIS) tablet 5 mg, Oral, BID budesonide-formoterol (SYMBICORT) 160-4.5 MCG/ACT inhaler 2 puff, Inhalation, BID bumetanide (BUMEX) tablet 0.5 mg, Oral, BID docusate sodium (COLACE) capsule 100 mg, Oral, QDAY metoprolol succinate XL 24hr (TOPROL XL) tablet 50 mg, Oral, QDAY rifAMPin (RIFADIN) capsule 300 mg, Oral, TID tamsulosin (FLOMAX) capsule 0.4 mg, Oral, AT BEDTIME tiotropium (SPIRIVA RESPIMAT) 2.5 MCG/ACT inhaler 2 puff, Inhalation, QDAY vancomycin (VANCOCIN) IV dose per pharmacy, Does not apply, DIRECTED ?? vancomycin HCl (VANCOCIN) 1,250 mg in 0.9% NaCl 250 mL IVPB, Intravenous, q18h Data Recent Labs Component Name 05/03/19 0246 05/02/19 0410 05/01/19 0244 WBC 9.6 6.6 7.2 HGB 11.2* 10.8* 10.6* HCT 38.1 36.7 35.6 PLTCOUNT 138* 143* 148* Recent Labs Component Name 05/04/19 0307 05/03/19 0246 05/02/19 0410 SODIUM 135* 140 138 POTASSIUM 3.2* 4.2 3.6 CHLORIDE 100 104 102 CO2 27 24 27 BUN 19 16 20 CREATININE 1.12 1.04 1.13 GLUCOSE 107* 86 98 CALCIUM 9.1 9.4 9.4 Recent Labs Component Name 05/02/19 0410 04/30/19 0242 02/03/19 0106 ALBUMIN 3.6 3.5 3.1* ALKPHOS 211* 188* 304* ALT 26 27 21 AST 25 30 20 TBIL 1.1 0.5 1.0 TPROT 7.3 6.9 7.0 No results for input(s): CDIFFTOXINAB in the last 65524 hours. Recent Labs Component Name 04/24/19 1141 SEDRATE 68* Recent Labs Component Name 04/24/19 1140 08/15/17 0348 08/09/17 0745 CRP 1.41* 4.1* 32.0* No results for input(s): CK in the last 64034 hours. .No results for input(s): VANCOTROUGH, VANCOPEAK, VANCSERIES in the last 83886 hours. 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 Pratt Please be advised that part of this text was done using voice recognition software. Errors may havebeen missed upon review. Raysa Nevarez MD [facility] * Hoa Poe - 05/04/2019 5:34 AM CST During prior administration of pain medication patient inquired if I was given him Oxy for his pain. Orginally video game script writer had administered tramadol alternating with tylenol. Upon this last request patient seemed to be in a little more discomfort, with bowel, movement, he then asked for pain medication.Shipping And Receiving Clerk pulled oxy for the pain better adhere patient pain needs, medication was scanned and when heasked what he was getting video game script writer explained that oxy was stronger and would help better with his discomfort. He then refused this medication. CSN was notified due to pills being scanned and opened foradministration. CSN witness the wasted tabs as well. Tramadol was then pulled and administered to patient. Patient later explained that he did not like the oxy because it causes him constipation prefers to alternate with tramadol,tylenol or Bufferin. [facility] MEDIA * Cee Boyce RCP - 05/04/2019 5:12 AM CST José Miguel Nia Keys is maintaining a patent airway. His home bipap is in use @this time w/1LPM Oxygen bleed in- and prior to home bipap use(pt placed on last evening@2300)- pt was on room air. Nebulizer treatments are being adm as ordered. Pt kip well & pt is cooperative. MDI-(inhaler) is ordered BID & was adm last evening --as is ordered. MDI was adm w/spacer & post rinse was completed aswell. RT verbally explained/educated to the pt-- the purpose/benefit & proper use of-- the nebulizer treatments & the MDI w/spacer use. RT also explained/educated the pt-- of the RT meds adm.Please see doc flowsheet - cpap/bipap & resp treatments-for further documentation. RT will continue to monitor pt. Cee Boyce, Respiratory Care Practitioner 05/04/2019 5:15 AM [facility]IA * Hoa Poe - 05/04/2019 5:02 AM CST Problem: Low Fall Risk (Score 7-10) Goal: Patient will remain as independent as possible. Outcome: Ongoing Goal: Patient will have lower fall risk. Outcome: Ongoing Goal: Patient will have lower injury risk. Outcome: Ongoing Goal: Patient will remain safe from falls and injury. Outcome: Ongoing Problem: Infection Goal: Signs and symptoms of infections are decreased or avoided Outcome: Ongoing Problem: Isolation Goal: Prevent Transmission of Infection Outcome: Ongoing Problem: Pain/Discomfort Goal: Patient exhibits reduced pain/discomfort as evidenced by pain scores Outcome: Ongoing Goal: Patient uses pharmacological and non-pharmacological pain management strategies. Outcome: Ongoing Goal: Patient verbalizes acceptable level of pain relief and ability to engage in desired activity. Outcome: Ongoing Problem: Oxygenation/Respiratory Function Goal: Patient exhibits no evidence of increased respiratory distress Outcome: Ongoing Goal: Patient/Family will demonstrate knowledge of self-care management skills Outcome: Ongoing [facility] MEDIA * Nika Montoya RN - 05/03/2019 4:30 PM CST Shift Report Resident pleasant and cooperative this shift. at bedside this evening. Biggest issue today waspain management. Provider requested patient have pain meds alternated every 2 hours and also increased avail. I had difficulty with the pump today but the vanc was administered. Swelling to eyes has improved today. [facility] MEDIA * Nika Montoya RN - 05/03/2019 4:16 PM CST Problem: Low Fall Risk (Score 7-10) Goal: Patient will remain safe from falls and injury. Outcome: Ongoing Patient reminded to call for help with transfers and ambulation r/t drain and IV poles. Problem: Isolation Goal: Prevent Transmission of Infection Outcome: Ongoing Patient and family educated on contact precautions r/t MRSA and prevention of spreading. Hand washing and PPE emphasized. Problem: Pain/Discomfort Goal: Patient exhibits reduced pain/discomfort as evidenced by pain scores Outcome: Ongoing Patients pain medication increased this shift. More effective pain control. Continue goal. CTOR MEDIA * Eula Verma RCP - 05/03/2019 1:56 PM CST Problem: Oxygenation/Respiratory Function Goal: Patent airway Note: José Miguel continues on scheduled nebulizer tx. Lungs sound diminished this shift. Will continue to monitor and wean as able [facility]OR MEDIA * Brenden Ellis, PharmD - 05/03/2019 12:15 PM CST Vancomycin Per Pharmacy (Day 5) 68 year old male receiving vancomycin 1250 mg IV q18h for the management of infected right ARNALDO. ID is following. Other Anti-infectives: Rifampin Vitals: Height: 5' 11 (180.3 cm) (04/29/19525) Weight: 99.8 kg (220 lb) (04/29/19525) Temp (24hrs) Max:98.4 ??F (36.9 ??C) Current Labs: Recent Labs Component Name 05/03/196 05/02/19 0410 05/01/194 BUN 16 20 25 CREATININE 1.04 1.13 1.04 WBC 9.6 6.6 7.2 Renal: Estimated Creatinine Clearance: 79.6 mL/min (based on SCr of 1.04 mg/dL). Cultures: 04/29 hip abscess cx: NOS 04/29 bloodcx:NGTD X 2 sets Levels: Recent Labs Component Name 05/01/19 0749 04/29/19 0644 02/15/19 1650 02/12/19 0922 02/07/19 0409 02/06/19 0419 VANCORNDM - 10.5 - - 20.9 19.2 VANCTROUGH 8.1* - 16.5 22.6* - - Vancomycin trough goal:15-20 mcg/mL SrCr WNL and stable. Will obtain a vancomycin level on 05/03 at 1200. Will continue to monitor and will adjust regimen if necessary. Kristan Sandra, PharmD Addendum: Vancomycin trough at 1321 on 05/03 was 22.9 mcg/ml which is above the desired therapeutic range. Level was drawn a little early, but will go ahead and change regimen to Vancomycin 1250mg q18hr and will obtain an additional level in a few days to further guide dosing. Pharmacy will continue to monitor and adjust as needed. Brenden Ellis, PharmD 05/03/2019 2:16 PM [facility] MEDIA * Michelle Pratt MD - 05/03/2019 12:14 PM CST Internal medicine progress notes Admit Date: 04/29/2019 5:18 AM Hospital Day: 4 Assessment and Plan: Right hip septic arthritis Status post arthrotomy, irrigation and debridement of right hip arthroplasty on May [address] Alexander #POD 1 Status post wound VAC application Micro showing no organisms on Gram stain, anaerobics in fluids pending, blood culture no growth till date; VRE, MRSA surveillance positive Continue IV vancomycin I will monitor vanc trough levels, renal function closely Continue p.o. rifampin IV and p.o. narcotic for pain control IV nausea medication for nausea PT OT Ortho following closely ID following closely COPD Stable Continue albuterol nebulizer solution 4 times a day P.r.n. duo nebs ordered Continue Symbicort and Spiriva ?? Mild aortic regurgitation, atrial fibrillation, CAD, questionable HFpEF EF 55 percent, wall thickness mildly increased Rate controlled Continue metoprolol XL 50 mg once daily Continue Eliquis 5 mg b.i.d. p.o. Bleeding precautions On Bumex 0.5 mg b.i.d. at home, continue the same, DC IV fluids Pulmonary hypertension pressures of 54 mmHg on echo Needs outpatient monitoring Possible pulmonology referral as outpatient - holding eliquis. Restart after surgery - cont bumex ?? BPH Continue Flomax VALENTINA at night BMI of 30.68 CPAP at night DVT prophylaxis Eliquis Code status full Dispo Placement early next week possibly Home will need wound VAC PT OT The patient due to medical issues in the assessment and plan, continued hospitalization will be required. Michelle Pratt MD Clinical Course: José Miguel Keys is a 68 yo male??with a history of CAD,??atrial fibrillation, COPD, cirrhosis, VALENTINA and complex history of MRSA bacteremia and epidural abscess in 2018.He has a history of right total hip arthoplasty in 2005. He was admitted on 02/02 with a week of right hip pain; CT revealeda right hip abscess for which he underwent I/D by orthopaedics on 02/04 and 02/08. Cultures grew MRSA. The patient has been on vancomycin. ID consulted; recommending vancomycin and rifampin??through 04/01 following by chronic suppression with doxycycline 100 mg BID for at least 6 month??which she is still continuing. New Symptoms Complaining of pain 10/13. Received fentanyl in the last 24 hr and tramadol. No fever or chills. Up in the chair. Has not worked with PT OT yet today. Other ROS neg. Exam Vitals: 05/03/19 0403 05/03/19 0754 05/03/19 0808 05/03/19 1223 BP: 123/69 128/58 111/59 Pulse: 85 90 89 83 Resp: 18 20 18 20 Temp: 98.4 ??F (36.9 ??C) 98.2 ??F (36.8 ??C) 97.8 ??F (36.6 ??C) SpO2: 97% 96% 96% 97% Weight: Height: GEN: alert, well appearing, and in no distress HEENT: EOMI, PERRL, mild apple orbital redness noted; no tenderness exam.. Neck supple. No thyromegaly LUNGS: Clear to auscultation bilaterally. No abnormal respiratory effort or retraction noted. No w/r/r. CV: Regular rate and rhythm without murmur, gallop or rub. ABD: soft, nontender, nondistended, no hepatomegaly, normal bowel sounds SKIN: Normal to inspection. Warm, dry, supple, with no changes in moles or sores that will not heal. MSK: R hip bandage+, wound vac in place NEURO: Intact motor, sensory, cerebellar, and cranial nerve systems. PSYCH: The patient is oriented to time, place, and person Data Intake/Output Summary (Last 24 hours) at 05/03/2019 1302 Last data filed at 05/03/2019 0754 Gross per 24 hour Intake 1290 ml Output 1625 ml Net -335 ml No data found. Recent Labs Component Name 05/03/19 0246 05/02/19 0410 05/01/19 0244 10/10/18 1515 09/19/17 0243 09/18/17 0003 WBC 9.6 6.6 7.2 - 7.1 8.5 8.7 RBC 4.22 4.12 3.98 - 3.94* 2.85* 3.09* HGB 11.2* 10.8* 10.6* - 11.0* 8.1* 8.8* HCT 38.1 36.7 35.6 - 34.5* 28.0* 29.6* MCV 90.3 89.1 89.4 - 87.6 98.2* 95.8 MCHC 29.4* 29.4* 29.8* - 31.9* 28.9* 29.7* RDW - - - - 14.0 21.3* 21.4* RDWCV 16.0* 15.9* 15.9* - - - - PLTCOUNT 138* 143* 148* - 183 208 199 NEUTPCT 73.5* 63.3 62.7 - - 79.2* 79.2* LYMPHPCT 6.1* 10.1* 11.7* - 9.3 - - EOSINPCT - - - - 4.2 - - BASOPHILPCT 0.6 0.8 0.8 - 0.6 - - GRANSIMMPCT 0.4 0.5 0.3 - - - - LYMPHABS 0.58* 0.66* 0.84* - - - - BASOABS 0.06 0.05 0.06 - - - - NRBCAUTO 0 0 0 - - - - - = values in this interval not displayed. Recent Labs Component Name 05/03/19 0246 05/02/19 0410 05/01/19 0244 04/30/19 0242 02/03/19 0106 SODIUM 140 138 141 138 - 134* POTASSIUM 4.2 3.6 4.7 3.4* - 4.3 CHLORIDE 104 102 106 105 - 101 CO2 24 27 26 26 - 25 BUN 16 20 25 24 - 19 CREATININE 1.04 1.13 1.04 1.00 - 1.22* GLUCOSE 86 98 89 101 - 112* CALCIUM 9.4 9.4 9.8 9.5 - 9.5 ALBUMIN - 3.6 - 3.5 - 3.1* ALKPHOS - 211* - 188* - 304* ALT - - - 21 AST - - 30 - 20 TBIL - 1.1 - 0.5 - 1.0 TPROT - 7.3 - 6.9 - 7.0 EGFR >60 >60 >60 >60 - 59 - = values in this interval not displayed. No results for input(s): MAGMGDL in the last 14055 hours. Recent Labs Component Name 09/19/17 0243 09/18/17 0003 09/17/17 0433 PHOS 2.5 2.8 3.2 Recent Labs Component Name 02/04/19 0617 COLORUA Yellow CLARITYUA Cloudy* SPECGRAVUA 1.021 PHUA 5.0 PROTEINUA Negative BLOODUA Negative LEUKOCYTEUA Negative NITRITEUA Negative GLUCOSEUA Negative KETONEUA Trace* BILIRUBINUA Negative UROBILINUA Negative Recent Labs Component Name 09/15/17 0441 09/11/17 0437 08/26/17 1420 BNP 694* 806* 552* Recent Labs Component Name 09/06/17 1157 08/26/17 1420 TROPONINI 0.027 <0.010 Recent Labs Component Name 02/03/19 0413 02/03/19 0106 02/02/19 2238 LACTICACID 0.7 0.8 0.9 Recent Labs Component Name 04/30/19 0242 02/15/19 0307 02/14/19 0346 02/04/19 0737 09/10/17 0549 09/07/17 0428 INR 1.1 1.9* 1.9* - 1.0 - - - 1.6 PT 13.9 18.9* 18.3* - 11.1 - - - 18.8* PTT - - - - 26.4 - 29.7 - 32.8 - = values in this interval not displayed. Recent Labs Component Name 02/03/19 0106 07/14/17 2212 HGBA1C 5.8 6.3 MEDICATIONS FOR CURRENT ENCOUNTER: SCHEDULED MEDICATIONS: 0.9% NaCl injection 3 mL, Intracatheter, q8h albuterol (PROVENTIL;VENTOLIN) (5 MG/ML) 0.5% nebulizer solution 2.5 mg, Inhalation, 4X/day apixaban (ELIQUIS) tablet 5 mg, Oral, BID budesonide-formoterol (SYMBICORT) 160-4.5 MCG/ACT inhaler 2 puff, Inhalation, BID bumetanide (BUMEX) tablet 0.5 mg, Oral, BID docusate sodium (COLACE) capsule 100 mg, Oral, QDAY metoprolol succinate XL 24hr (TOPROL XL) tablet 50 mg, Oral, QDAY tamsulosin (FLOMAX) capsule 0.4 mg, Oral, AT BEDTIME tiotropium (SPIRIVA RESPIMAT) 2.5 MCG/ACT inhaler 2 puff, Inhalation, QDAY vancomycin (VANCOCIN) IV dose per pharmacy, Does not apply, DIRECTED vancomycin HCl (VANCOCIN) 1,500 mg in 0.9% NaCl 500 mL IVPB, Intravenous, q18h [] sodium hypochlorite 0.125% (DAKINS) 1/4 strength solution, Topical, Once ?? [MAR Hold] rifAMPin (RIFADIN) capsule 300 mg, Oral, TID CONTINUOUS MEDICATIONS: ?? 0.9% NaCl flush bag, Intravenous, CONTINUOUS PRN PRN MEDICATIONS: 0.9% NaCl flush bag, Intravenous, CONTINUOUS PRN 0.9% NaCl infusion rate and volume, Intravenous, Once PRN 0.9% NaCl infusion rate and volume, Intravenous, Once PRN 0.9% NaCl injection 1-10 mL, Intracatheter, PRN acetaminophen (TYLENOL) tablet 650 mg, Oral, q6h PRN diphenhydrAMINE (BENADRYL) capsule 25 mg, Oral, q6h PRN diphenhydrAMINE-zinc acetate (BENADRYL EXTRA STRENGTH) 2-0.1 % cream, Topical, PRN fentaNYL (PF) (SUBLIMAZE) injection 25 mcg, Intravenous, q4h PRN hydrocortisone (DERMAREST) 1 % lotion, Topical, 4X/day PRN oxyCODONE (immediate release) (ROXICODONE) tablet 10 mg, Oral, q4h PRN ?? traMADol (ULTRAM) tablet 50 mg, Oral, q6h PRN Echo done in 05/01/2019 Allergies: PENICILLINS, LEVOFLOXACIN, SCOPOLAMINE Orthopedic Specialist: Gómez Finch Referring Physician: Kev Ordonez MD [...] changes were blunted (less than 50% variation). [facility] MEDIA * Wendy Cid, PT - 05/03/2019 10:54 AM CST Physical Therapy Treatment Today's Date: 05/03/2019 Patient Name: José Miguel Keys Referring Physician:Michelle Pratt MD Referral Diagnosis: 1. 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 Coronary artery disease without angina pectoris, unspecified vessel or lesion type, unspecified whether redding or transplanted heart 3. Chronic atrial fibrillation 4. Diagnosis unknown PT Referral: evaluation and treatment Precaution/ Restrictions: Falls and WBAT R LE at present time History of Present Illness: Patient is a 68 y/o male who was admitted from home to [facility] on 04/29/19 with dx of: infected right total hip arthroplasty and persistent wound drainage s/p 9/ right hip I&D, head and spacer exchange . S/p Incision and drainage of superficial abscess right hip, Arthrotomy with irrigation and debridement of right hip arthroplasty, Wound VAC application right hip/incisional wound VAC application for discovered post-op dx of Superficial abscess right hip without any significant communication to un derlying hip joint and no purulent fluid noted hip joint on 05/02/19 in PM New orders to resume skilled PT received post-op. SUBJECTIVE: Patient seen at b/s on 2E earlier this AM for skilled PT treatment. Patient states, I can try walking, but this pain is horrible. C/o fatigue and almost no sleep last night because of the pain . Patient's goal: go home when all this is done Pain: Pain Rating Score #: 8(8/10 at rest; 9-10/10 with activity w/pain meds ahead of tx) Pain Location : Hip Pain Orientation: Right Pain Quality: Aching Aggravating Factors: Activity;Other (Comment)(surgery yesterday) Relieved By: Rest;Medications;Position OBJECTIVE: Chart reviewed prior to treatment this date & communication with Deepa DIGGS to inform that PT treatment to be completed at this time. Patient gives verbal consent for skilled PT treatment this date. Observation: Patient presents for skilled PT treatment semi-christianson in bed on room air in no apparent distress with R UE IV, R hip wound vac. Current drips at time of session: --IVF - see eMAR Cognition: Orientation Level: Oriented X4 Cognition: Follows Commands-Consistent;Attention/concentration-normal for age;Processing-Appropriate;Follows one step commands;Judgement-decreased;Safety awareness-decreased Participation: Active Participation Attention Span: Appears intact Memory: Decreased recall of precautions Following Commands: Follows two or three step commands Safety Judgement: Decreased awareness of need for safety Awareness of Errors: Assistance required to correct errors made;Assistance required to identify errors made Mobility: Bed mobility: Rolling: Activity Does Not Occur Supine to Sit: Minimal Assistance;Moderate Assistance;Requires Verbal Cues for Safety;Requires Verbal Cues for Technique;Requires Physical Cues for Technique(min-mod assist of 1 person, primarily forR LE mvmt) Sit to Supine: Activity Does Not Occur Transfers: Sit to Stand: Minimal Assistance;Requires Verbal Cues for Safety;Requires Verbal Cues for Technique Stand to Sit: Minimal Assistance;Requires Verbal Cues for Safety;Requires Verbal Cues for Technique Chair to Bed: Activity Does Not Occur Bed to Chair: Minimal Assistance to Right;Requires Verbal Cues for Safety;Requires Verbal Cues for Technique Type of Transfer: Stand Pivot Transfer(with bilat UE support on w/w) Gait: Distance Ambulated: 50 FEET(50'x1; limited in distance by pain) Ambulation: Assistive Device: Gait Belt;Walker-2 Wheeled(chair follow; IV and wound vac dep managedby PT) Ambulation: Level of Assistance: Minimum Assistance;Requires Verbal Cues for Safety;Requires VerbalCues for Technique Ambulation: Gait Deviations: Antalgic;Base of Support - Increased;Bernarda - Decreased;Heel Strike -Decreased;Increased Trunk Flexion;Increased Weight Bearing through Upper Extremity;Push Off - Decreased;Stance Time - Decreased;Step Length - Decreased;Weight Shift - Decreased Pain Rating Score #: 8(8/10 at rest; 9-10/10 with activity w/pain meds ahead of tx) Stairs: NT Balance: Sitting - Static: Good -;With Both Upper Extremity's Support Sitting - Dynamic: Fair +;With One Upper Extremity Support Standing - Static: Fair +;With Both Upper Extremity's Support Standing - Dynamic: Poor +;With One Upper Extremity Support Education: Please refer to education activity button tab in Epic chart for education provided to patient/caregiver & response to education provided this date. In addition, patient was also educated on purpose of PT, WBS R LE pre and post-op. Patient was educated on and verbalizes fair awareness of the therapy diagnosis and prognosis and agrees with the treatment plan and goals. Treatment today: PT treatment provided at this time. Please refer to the PT Treatment Report in the Filed Flowsheet for more details. Additional treatment not noted in PT Treatment Report in Filed Flowsheet: -- in supine, R LE, x10 reps, with 5 sec holds each: Glut sets, quad sets -- in supine, R LE, x 5 reps: Hip abd/add, heel slides, SAQ, ankle pumps; required varied SBA-mod assistance to complete secondary to decreased force production -- seated bilat LE ex, 2x5 reps each: LAQ Patient positioned in supportive upright sitting in b/s chair upon end of PT session this date. Alllines in good working order. Call light, phone, & tray table in reach. Deepa DIGGS aware of patient's position following PT session. ASSESSMENT: Patient tolerates treatment fair this date. Noted to tolerate a decreased amount of overall activity this session vs previous session prior to surgery yesterday. Is noted to be limited at this time primarily by pain of 8/10 at rest increasing to 9-10/10 with activity, with patient having been pre-medicated with all available pain meds at this time. Demonstrates good effort throughout session this date, despite significantly increased pain. Requires min additional encouragement for full effort throughout session. Noted to again have a flatter, depressed affect. Expresses again this date that he is very frustrated by being in the hospital again. Patient will continue to benefit from skilled PT services to address impairments of: Decreased strength, decreased endurance, decreased knowledge of condition, decreased pain tolerance, decreased balance, decreased ROM, impaired gait/mobility, impaired cardiopulmonary hygiene/function in order to improve functional mobility & increase independence toward patient's PLOF. Goals: Patient progressing fair toward goals as written. Please refer to system Plan of Care for listing of PT goals for patient, & for progression toward goals this date. Rehab prognosis remains fair for therapy goals as set with increased time for achievement of goals. PLAN: Continue per current POC with skilled PT acute care services during hospitalization for progressionof mobility, endurance, and education in order to optimize function & progress toward goals as able. Recommendations: --Patient would benefit from further skilled PT services upon discharge from acute care hospital athome with HHPT & 27/12 care vs IP Acute Rehab to maximize functional mobility/gait, strength, endurance, and balance, pending progress and LOS in acute care hospital. If this is the last physical therapy visit, this serves as the discharge summary. Thank you for referring this patient for skilled PT services. Wendy Pereira, PT, DPT [facility][id number] [facility] MEDIA * Raysa Nevarez MD - 05/03/2019 9:25 AM CST Infectious Diseases Consult Note Patient's Primary Care Physician: Briana Medeiros MD Reason for Consultation: Rt hip septic arthritis Referring Physcian: Kev Ordonez MD Name: José Miguel Keys Age: [age] year old 4 Hospital course Had surgery yesterday Pain controlled Review of systems No diarrhea No fevers chills Exam Vitals: 05/03/19 0216 05/03/19 0403 05/03/19 0754 05/03/19 0808 BP: 123/69 128/58 Pulse: 78 85 90 89 Resp: 16 18 20 18 Temp: 98.4 ??F (36.9 ??C) 98.2 ??F (36.8 ??C) SpO2: 96% 97% 96% 96% Weight: Height: Temp (30hrs) Max:98.4 ??F (36.9 ??C) General appearance: alert, cooperative, no distress, cooperative, no distress, appears stated age, alert HEENT: ncat, vision intact/perrl, mmm/no lesion, neck supple/nt Lungs: clear to auscultation bilaterally Heart: regular rate and rhythm, S1, S2 normal, no murmur, click, rub or gallop, Abdomen: soft, non-tender; bowel sounds normal; no masses, no organomegaly Extremities: rt hip swelling pain, drainage less swelling than few days ago Skin: no rash/lesion Lines: MEDICATIONS FOR CURRENT ENCOUNTER: SCHEDULED MEDICATIONS: 0.9% NaCl injection 3 mL, Intracatheter, q8h albuterol (PROVENTIL;VENTOLIN) (5 MG/ML) 0.5% nebulizer solution 2.5 mg, Inhalation, 4X/day apixaban (ELIQUIS) tablet 5 mg, Oral, BID budesonide-formoterol (SYMBICORT) 160-4.5 MCG/ACT inhaler 2 puff, Inhalation, BID bumetanide (BUMEX) tablet 0.5 mg, Oral, BID metoprolol succinate XL 24hr (TOPROL XL) tablet 50 mg, Oral, QDAY tamsulosin (FLOMAX) capsule 0.4 mg, Oral, AT BEDTIME tiotropium (SPIRIVA RESPIMAT) 2.5 MCG/ACT inhaler 2 puff, Inhalation, QDAY vancomycin (VANCOCIN) IV dose per pharmacy, Does not apply, DIRECTED vancomycin HCl (VANCOCIN) 1,500 mg in 0.9% NaCl 500 mL IVPB, Intravenous, q18h [] sodium hypochlorite 0.125% (DAKINS) 1/4 strength solution, Topical, Once ?? [MAR Hold] rifAMPin (RIFADIN) capsule 300 mg, Oral, TID Data Recent Labs Component Name 05/03/19 0246 05/02/19 0410 05/01/19 0244 WBC 9.6 6.6 7.2 HGB 11.2* 10.8* 10.6* HCT 38.1 36.7 35.6 PLTCOUNT 138* 143* 148* Recent Labs Component Name 05/03/19 0246 05/02/19 0410 05/01/19 0244 SODIUM 140 138 141 POTASSIUM 4.2 3.6 4.7 CHLORIDE 104 102 106 CO2 24 27 26 BUN 16 20 25 CREATININE 1.04 1.13 1.04 GLUCOSE 86 98 89 CALCIUM 9.4 9.4 9.8 Recent Labs Component Name 05/02/19 0410 04/30/19 0242 02/03/19 0106 ALBUMIN 3.6 3.5 3.1* ALKPHOS 211* 188* 304* ALT 26 27 21 AST 25 30 20 TBIL 1.1 0.5 1.0 TPROT 7.3 6.9 7.0 No results for input(s): CDIFFTOXINAB in the last 42781 hours. Recent Labs Component Name 04/24/19 1141 SEDRATE 70* Recent Labs Component Name 04/24/19 1140 08/15/17 0348 08/09/17 0745 CRP 1.41* 4.1* 32.0* No results for input(s): CK in the last 01982 hours. .No results for input(s): VANCOTROUGH, VANCOPEAK, VANCSERIES in the last 05057 hours. 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 Alexander yesterday Please be advised that part of this text was done using voice recognition software. Errors may havebeen missed upon review. Raysa Nevarez MD [facility] * Leslye Montgomery RN - 05/03/2019 5:31 AM CST Shift Summary: A&Ox4, VSS. Ptt up with walker, steady by self. IV Fentanyl given for pain, pt rates 10/10 right hip pain that is sharp. Eyes are still very swollen and red. PRN Hydrocortisone cream applied, pt states no relief but willing to keep trying to see if swelling will go down. No N/V, tolerating diet. R hip wound vac intact, seal maintained. Voiding adequately. IVF running, scheduled abx given. Call light within reach. Leslye Montgomery RN 05/03/2019 5:32 AM [facility] * Alberto Shell MD - 05/03/2019 2:22 AM CST [facility] Orthopedic Surgery Daily Progress Note José Miguel Keys, 68 year old, male : 1950 CSN: [id number] Primary Care Physician: Briana Medeiros MD - Admission Date/Time: 04/29/2019 5:18 AM - Hospital Day: 4 Subjective Patient seen and examined this AM on rounds. No new problems or issues overnight. Pain controlled this morning. Denies any new numbness/paresthesias. POD#1 s/p I&D with closure of Right hip wound Vitals Temp (24hrs), Av.8 ??F (36.6 ??C), Min:97.2 ??F (36.2 ??C), Max:98.4 ??F (36.9 ??C) BP 128/58 Pulse 89 Temp 98.2 ??F (36.8 ??C) (Oral) Resp 18 Ht 5' 11 (1.803 m) Wt 220 lb (99.8 kg) SpO2 96% BMI 30.68 kg/m2 Labs Recent Labs Component Name 05/03/19 0246 05/02/19 0410 05/01/19 0244 WBC 9.6 6.6 7.2 HGB 11.2* 10.8* 10.6* HCT 38.1 36.7 35.6 PLTCOUNT 138* 143* 148* Recent Labs Component Name 04/30/19 0242 02/15/19 0307 02/14/19 0346 INR 1.1 1.9* 1.9* Cultures 05/02 OR cultures with NGTD Physical Exam General appearance: Awake, cooperative, no acute distress, Right lower extremity: -Appearance: Prevena incisional W[place] intact and functioning -Tenderness: not assessed -ROM: not assessed -Motor: Able to plantarflex ankle, able to dorsiflex ankle, able to plantarflex great toe, able to dorsiflex great toe -Sensation: SILT to dorsal and plantar foot -Vascular: 2+ DP pulse with toes warm and well perfused Assessment/Plan Active Problems: Infection of right prosthetic hip joint Patient is a??68 year old,??male??with infected right total hip arthroplasty from 2006 -s/p right hip I&D and wound vac application on??02/04/2019??with Dr. Alexander - s/p:??Right hip I&D with Femoral head and poly exchange with delayed primary closure 02/08/[address] Alexander - s/p: Irrigation and debridement of right hip abscess 05/02/[address] Alexander 1. Activity/Weight-bearing status: WBAT RLE 2. Current Dispo: pending PT/ ABX regimen 3. Anticoagulation Status: ASA 325 BID 4. Antibiotics: Per ID 5. Wound care: Continue current dressings until POD#7, at that time home health will change to a new Prevena (currently at bedside) 6. Diet: regular 7. PT/OT 8. Pain Control 9. Orthopedics will continue to follow. Please page with any questions or concerns Please give the following instructions to the patient upon discharge/transfer: ?? Hip Precautions as follows: ?? Posterior hip precautions- no flexion past 90 degrees, no adduction past midline, no internal rotation ?? Thigh high FRANKLIN hose when up during the day. May remove at night while sleeping ?? Patient may discontinue compression stocking after two weeks. ?? Ankle flexion exercises every hour during the day to prevent swelling and deep vein thrombosis prevention. ?? Continue EC ASA 325 mg po bid for one month for DVT prophylaxis. ?? If on coumadin: , weekly INR's please fax results to clinic, c/o DONTAE Alonzo ( [facility]). Plan for 4 weeks of anticoagulation with a target INR of 1.5-1.8 ?? Keep wound clean and dry. Change surgical dressing 7 days after surgery. After that you should perform daily or every other day dressing changes with dry gauze and tape as needed for saturation. After diogenes/sutures have been removed it is OK to shower but leave wound covered with a dressing inthe shower. After shower, remove the wet dressing, pat dry, and apply antibiotic ointment over wound then place a clean dry dressing. ?? Apply an antibiotic ointment (neosporin/bacitracin) to incision daily after initial surgical dressing has been removed ?? Do not get incision wet in shower until diogenes are removed. No tub soaks. No scrubbing around incision. ?? Call [phone] to schedule the first follow-up appointment with Dr. Alexander in 3 week(s) or for any questions Alberto Shell MD 05/03/2019 9:32 AM [facility] * Leslye Montgomery RN - 05/03/2019 12:35 AM CST Problem: Pain/Discomfort Goal: Patient uses pharmacological and non-pharmacological pain management strategies. Outcome: Ongoing Pain moderately controlled with PRN Fentanyl. Problem: Oxygenation/Respiratory Function Goal: Respiratory rate will be within normal limits for patient. Outcome: Ongoing RR and O2 sats WNL. [facility] * Amanda Merritt RN - 05/02/2019 4:25 PM CST Called down to waiting room. No family present. [facility] * Alberto De Los Santos MD - 05/02/2019 3:27 PM CST [facility] Orthopedic Surgery Postoperative Check José Miguel Keys, 68 year old, male : 1950 CSN: [id number] Admitted: 04/29/2019 5:18 AM Subjective Nausea/vomiting: none Pain: controlled Patient stable and resting in PACU Vitals: Patient Vitals for the past 6 hrs: Temp Pulse Resp BP BP Method 05/02/19 1520 97.2 ??F (36.2 ??C) 73 16 114/43 Automatic 05/02/19 1144 97.8 ??F (36.6 ??C) 79 18 133/76 Automatic Physical Exam General appearance: resting, cooperative, and NAD RLE -Appearance: dressings c/d/i, compartments soft/compressible. Provena dressing intact -Motor: Able to plantarflex ankle, able to dorsiflex ankle, able to plantarflex great toe, able to dorsiflex great toe -Sensation: SILT to dorsal/plantar foot -Vascular: 2+ DP pulse with brisk capillary refill, toes warm and well perfused Assessment/Plan Surgery Date: 05/02/2019 Diagnosis: Patient is a 68 year old, male with right hip superficial abscess, hx of infected total hip arthroplasty - s/p: Irrigation and debridement of right hip abscess 1. Patient transferred to the PACU in stable condition. Patient will be transferred to the floor 2. Medicine primary-Dr. Ordonez 3. Antibiotics- continue per ID recs. Ortho recommending another 6 weeks of IV therapy vs oral suppression 4. Provena dressing: record output. He will be discharged with this dressing. Keep intact for one week. New provena provided which is to be changed by home health nurse at one week. 5. Weight-bearing/Activity/Brace Status: WBAT RLE 6. DVT Prophylaxis: SCD's today. OK for DVT prophylaxis beginning this evening, per primary recs 7. Diet: regular 8. PT/OT 9. Pain Control 10. Please page Orthopedics with any questions or concerns. The patient will follow up with Dr. Alexander three weeks after discharge for suture/staple removal. Alberto De Los Santos MD 05/02/2019 3:27 PM [facility] * Kev Ordonez MD - 05/02/2019 2:55 PM CST Admit Date: 04/29/2019 5:18 AM Hospital Day: 3 Clinical Course José Miguel Keys is a 68 yo male??with a history of CAD,??atrial fibrillation, COPD, cirrhosis, VALENTINA and complex history of MRSA bacteremia and epidural abscess in 2018.He has a history of right total hip arthoplasty in 2005. He was admitted on 02/02 with a week of right hip pain; CT revealeda right hip abscess for which he underwent I/D by orthopaedics on 02/04 and 02/08. Cultures grew MRSA. The patient has been on vancomycin. ID consulted; recommending vancomycin and rifampin??through 04/01 following by chronic suppression with doxycycline 100 mg BID for at least 6 month??which she is still continuing. New Symptoms Pt resting in chair. Complaining bilateral eye rash. Patient denies chest pain, shortness of breath, abdominal pain, nausea, vomiting, diarrhea, constipation, urinary problems or leg pain. Exam Vitals: 05/02/19 0134 05/02/19 0507 05/02/19 0822 05/02/19 1144 BP: 138/85 132/72 133/76 Pulse: 80 74 93 79 Resp: Temp: 97.5 ??F (36.4 ??C) 97.8 ??F (36.6 ??C) 97.8 ??F (36.6 ??C) SpO2: 100% 100% 99% 99% Weight: Height: GEN: in NAD HEENT:NCAT, EOMI, MMM. Scaly rash bilateral periorbital region. RESP: Clear to auscultation bilaterally CARDIO: Regular rate and rhythm, Nl S1 and S2 No gallops. GI: Abdomen soft and non tender, non-distended, +BS, no organomegaly EXT: No edema. MSK: Moves all extremities NEURO: A+Ox3, no focal deficits SKIN: right hip wound bandaged Data Intake/Output Summary (Last 24 hours) at 05/02/2019 1455 Last data filed at 05/01/2019 2142 Gross per 24 hour Intake 240 ml Output -- Net 240 ml No data found. Recent Labs Component Name 05/02/19 0410 05/01/19 0244 04/30/19 0242 10/10/18 1515 09/19/17 0243 09/18/17 0003 WBC 6.6 7.2 7.9 - 7.1 8.5 8.7 RBC 4.12 3.98 4.01 - 3.94* 2.85* 3.09* HGB 10.8* 10.6* 10.5* - 11.0* 8.1* 8.8* HCT 36.7 35.6 35.3 - 34.5* 28.0* 29.6* MCV 89.1 89.4 88.0 - 87.6 98.2* 95.8 MCHC 29.4* 29.8* 29.7* - 31.9* 28.9* 29.7* RDW - - - - 14.0 21.3* 21.4* RDWCV 15.9* 15.9* 15.9* - - - - PLTCOUNT 143* 148* 159 - 183 208 199 NEUTPCT 63.3 62.7 64.6 - - 79.2* 79.2* LYMPHPCT 10.1* 11.7* 10.3* - 9.3 - - EOSINPCT - - - - 4.2 - - BASOPHILPCT 0.8 0.8 0.6 - 0.6 - - GRANSIMMPCT 0.5 0.3 0.3 - - - - LYMPHABS 0.66* 0.84* 0.81* - - - - BASOABS 0.05 0.06 0.05 - - - - NRBCAUTO 0 0 0 - - - - - = values in this interval not displayed. Recent Labs Component Name 05/02/19 0410 05/01/19 0244 04/30/19 0242 02/03/19 0106 SODIUM 138 141 138 - 134* POTASSIUM 3.6 4.7 3.4* - 4.3 CHLORIDE 102 106 105 - 101 CO2 - BUN CREATININE 1.13 1.04 1.00 - 1.22* GLUCOSE 98 89 101 - 112* CALCIUM 9.4 9.8 9.5 - 9.5 ALBUMIN 3.6 - 3.5 - 3.1* ALKPHOS 211* - 188* - 304* ALT AST - TBIL 1.1 - 0.5 - 1.0 TPROT 7.3 - 6.9 - 7.0 EGFR >60 >60 >60 - 59 - = values in this interval not displayed. No results for input(s): MAGMGDL in the last 41619 hours. Recent Labs Component Name 09/19/17 0243 09/18/17 0003 09/17/17 0433 PHOS 2.5 2.8 3.2 Recent Labs Component Name 02/04/19 0617 COLORUA Yellow CLARITYUA Cloudy* SPECGRAVUA 1.021 PHUA 5.0 PROTEINUA Negative BLOODUA Negative LEUKOCYTEUA Negative NITRITEUA Negative GLUCOSEUA Negative KETONEUA Trace* BILIRUBINUA Negative UROBILINUA Negative Recent Labs Component Name 09/15/17 0441 09/11/17 0437 08/26/17 1420 BNP 694* 806* 552* Recent Labs Component Name 09/06/17 1157 08/26/17 1420 TROPONINI 0.027 <0.010 Recent Labs Component Name 02/03/19 0413 02/03/19 0106 02/02/19 2238 LACTICACID 0.7 0.8 0.9 Recent Labs Component Name 04/30/19 0242 02/15/19 0307 02/14/19 0346 02/04/19 0737 09/10/17 0549 09/07/17 0428 INR 1.1 1.9* 1.9* - 1.0 - - - 1.6 PT 13.9 18.9* 18.3* - 11.1 - - - 18.8* PTT - - - - 26.4 - 29.7 - 32.8 - = values in this interval not displayed. Recent Labs Component Name 02/03/19 0106 07/14/17 2212 HGBA1C 5.8 6.3 MEDICATIONS FOR CURRENT ENCOUNTER: SCHEDULED MEDICATIONS: 0.9% NaCl injection 3 mL, Intracatheter, q8h albuterol (PROVENTIL;VENTOLIN) (5 MG/ML) 0.5% nebulizer solution 2.5 mg, Inhalation, 4X/day budesonide-formoterol (SYMBICORT) 160-4.5 MCG/ACT inhaler 2 puff, Inhalation, BID bumetanide (BUMEX) tablet 0.5 mg, Oral, BID metoprolol succinate XL 24hr (TOPROL XL) tablet 50 mg, Oral, QDAY sodium hypochlorite 0.125% (DAKINS) 1/4 strength solution, Topical, Once tamsulosin (FLOMAX) capsule 0.4 mg, Oral, AT BEDTIME tiotropium (SPIRIVA RESPIMAT) 2.5 MCG/ACT inhaler 2 puff, Inhalation, QDAY vancomycin (VANCOCIN) IV dose per pharmacy, Does not apply, DIRECTED vancomycin HCl (VANCOCIN) 1,500 mg in 0.9% NaCl 500 mL IVPB, Intravenous, q18h ?? [MAR Hold] rifAMPin (RIFADIN) capsule 300 mg, Oral, TID CONTINUOUS MEDICATIONS: 0.9% NaCl flush bag, Intravenous, CONTINUOUS PRN ?? lactated ringers infusion, Intravenous, Continuous PRN MEDICATIONS: 0.9% NaCl flush bag, Intravenous, CONTINUOUS PRN 0.9% NaCl infusion rate and volume, Intravenous, Once PRN 0.9% NaCl infusion rate and volume, Intravenous, Once PRN 0.9% NaCl injection 1-10 mL, Intracatheter, PRN acetaminophen (TYLENOL) tablet 650 mg, Oral, q4h PRN acetaminophen (TYLENOL) tablet 650 mg, Oral, q6h PRN diphenhydrAMINE (BENADRYL) capsule 25 mg, Oral, q6h PRN diphenhydrAMINE-zinc acetate (BENADRYL EXTRA STRENGTH) 2-0.1 % cream, Topical, PRN fentaNYL (PF) (SUBLIMAZE) injection 25 mcg, Intravenous, q4h PRN NaCl 0.9 % 1,000 mL with povidone-iodine (BETADINE) 35 mL irrigation, , PRN traMADol (ULTRAM) tablet 50 mg, Oral, q6h PRN vancomycin (VANCOCIN) 2 g in NaCl 0.9 % 6,000 mL irrigation, , PRN ?? vancomycin (VANCOCIN) injection, , PRN Assessment and Plan # Right hip wound drainage, concerning for possible infection - ID and ortho to evaluate - empiric iv vanc and rifampin - TTE, EKG, and CXR obtained as part of pre-operative evaluation - OR 05/02: right hip I&D, explantation of prior hip components, antibiotic spacer placement. - pt has METS of about 4, as his exercise capacity is limited by hip pain. His RCRI is 1-2 (CAD/?HFpEF) and carries a low-moderate risk of cardiac complications during this low risk operation. # COPD - cont home symbicort and spiriva - duonebs prn ?? # Atrial fibrillation # CAD # ? HFpEF - currently on metoprolol - holding eliquis. Restart after surgery - cont bumex ?? # VALENTINA - bipap qhs DVT ppx: SCDs. Start Eliquis when ok'd with surgery Code status: Full Disposition: Will need placement s/p OR 05/02. Maybe early next week Due to medical issues in the assessment and plan, continued hospitalization will be required. Kev Ordonez MD Internal Medicine 05/02/2019 Feel free to text page me through [employer], login smsl [facility] * Tammy Haynes OT - 05/02/2019 1:05 PM CST Occupational therapy orders received; chart review completed. Unable to complete visit due to pt MIRYAM for R I&D, hardware removal, and antibiotic spacer placement. Will attempt to see patient at alater date/time as OT schedule allows. Tammy Haynes OTD, OTR/L [facility] [phone] [facility] MEDIA * Des Pereira, Wendy L, PT - 05/02/2019 11:30 AM CST Physical Therapy Treatment Today's Date: 05/02/2019 Patient Name: José Miguel Keys Referring Physician:Kev Ordonez MD Referral Diagnosis: 1. 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 Coronary artery disease without angina pectoris, unspecified vessel or lesion type, unspecified whether redding or transplanted heart 3. Chronic atrial fibrillation 4. Diagnosis unknown PT Referral: evaluation and treatment Precaution/ Restrictions: Falls and WBAT R LE at present time History of Present Illness: Patient is a 68 y/o male who was admitted from home to [facility] on 04/29/19 with dx of: infected right total hip arthroplasty and persistent wound drainage s/p 02/08 right hip I&D, head and spacer exchange . SUBJECTIVE: Patient seen at [facility] on 2E this AM for skilled PT treatment prior to going to OR later this date. Patient states, I guess I can try getting up and moving before surgery . C/o fatigue Patient's goal: go home when all this is done Pain: Pain Rating Score #: 6(6/10 at rest; 7/10 with amb/activity) Pain Location : Hip Pain Orientation: Right Pain Quality: Aching Aggravating Factors: Activity Relieved By: Rest;Medications;Position OBJECTIVE: Chart reviewed prior to treatment this date & communication with Luis RN to inform that PT treatment to be completed at this time. Patient gives verbal consent for skilled PT treatment this date. Observation: Patient presents for skilled PT treatment sitting upright in [facility] on room air in no apparent distress with HLIV. Current drips at time of session: --none Cognition: Orientation Level: Oriented X4 Cognition: Follows Commands-Consistent;Attention/concentration-normal for age;Processing-Appropriate;Follows one step commands;Judgement-decreased;Safety awareness-decreased Participation: Active Participation Attention Span: Appears intact Memory: Decreased recall of precautions Following Commands: Follows one step commands with repetition/cues Safety Judgement: Decreased awareness of need for safety Awareness of Errors: Assistance required to correct errors made;Assistance required to identify errors made Mobility: Bed mobility: Rolling: Activity Does Not Occur Supine to Sit: Activity Does Not Occur(OOB upon arrival; remains OOB after tx) Sit to Supine: Activity Does Not Occur Transfers: Transfers completed both as WBAT R LE, as per current orders. However, also practiced TTWB R LE in prep for upcoming surgery. Sit to Stand: Stand By Assist;Minimal Assistance;Requires Verbal Cues for Safety;Requires Verbal Cues for Technique;Requires Physical Cues for Technique(SBA with WBAT R LE; min TTWB R LE) Stand to Sit: Stand By Assist;Moderate Assistance;Requires Verbal Cues for Safety;Requires Verbal Cues for Technique;Requires Physical Cues for Technique(SBA with WBAT R LE; min-mod TTWB R LE) Chair to Bed: Activity Does Not Occur Bed to Chair: Stand By Assist;Minimal Assistance to Right;Requires Verbal Cues for Safety;Requires Verbal Cues for Technique;Requires Physical Cues for Technique Type of Transfer: Stand Pivot Transfer(with bilat UE support) Gait: Distance Ambulated: 240 FEET(240'=120'x1 w/3 min seated rest break) Ambulation: Assistive Device: Gait Belt;Walker-2 Wheeled Ambulation: Level of Assistance: Stand By Assist;Requires Verbal Cues for Technique Ambulation: Gait Deviations: Base of Support - Increased;Bernarda - Decreased;Increased Trunk Flexion;Increased Weight Bearing through Upper Extremity;Push Off - Decreased;Step Length - Decreased Pain Rating Score #: 6(6/10 at rest; 7/10 with amb/activity) Stairs: NT Balance: Sitting - Static: Normal Sitting - Dynamic: Normal Standing - Static: Good -;With Both Upper Extremity's Support Standing - Dynamic: Fair;With One Upper Extremity Support Education: Please refer to education activity button tab in Epic chart for education provided to patient/caregiver & response to education provided this date. In addition, patient was also educated on purpose of PT, WBS R LE pre and post-op. Patient was educated on and verbalizes fair awareness of the therapy diagnosis and prognosis and agrees with the treatment plan and goals. Treatment today: PT treatment provided at this time. Please refer to the PT Treatment Report in the Filed Flowsheet for more details. Additional treatment not noted in PT Treatment Report in Filed Flowsheet: -- declines ex this date due to pending surgery later this date Patient positioned in supportive upright sitting in b/s chair upon end of PT session this date. Alllines in good working order. Call light, phone, & tray table in reach. Luis RN aware of patient's position following PT session. ASSESSMENT: Patient tolerates treatment good this date. Noted to tolerate approximately the same amount of overall activity this session vs previous session. Demonstrates good effort throughout session this date. Requires min-mod additional encouragement for full effort throughout session. Noted to again have a flatter, depressed affect. Expresses again this date that he is very frustrated about his current medical situation. Patient will continue to benefit from skilled PT services to address impairments of: Decreased strength, decreased endurance, decreased knowledge of condition, decreased pain tolerance, decreased balance, decreased ROM, impaired gait/mobility, impaired cardiopulmonary hygiene/function in order to improve functional mobility & increase independence toward patient's PLOF. Goals: Patient progressing fair toward goals as written. Please refer to system Plan of Care for listing of PT goals for patient, & for progression toward goals this date. Rehab prognosis remains fair for therapy goals as set with increased time for achievement of goals. PLAN: Continue per current POC with skilled PT acute care services during hospitalization for progressionof mobility, endurance, and education in order to optimize function & progress toward goals as able. Recommendations: --To be determined. Patient will be reassessed post-op to determine most appropriate level of care,as he will have a change in WBS to R LE post-op. If this is the last physical therapy visit, this serves as the discharge summary. Thank you for referring this patient for skilled PT services. Wendy Pereira, PT, DPT Ascom #[phone] [facility] * Fay Otero MSW - 05/02/2019 11:29 AM CST Case reviewed with RN/CM during morning huddle. Per huddle pt will need some level of rehab at d/c.Pt scheduled for surgery to remove hardware and cement spacer to be placed. CINDER BLOCK MASON will continue to f/u and coordinate [facility] MEDIA * Raysa Nevarez MD - 05/02/2019 9:47 AM CST Infectious Diseases Consult Note Patient's Primary Care Physician: Briana Medeiros MD Reason for Consultation: Rt hip septic arthritis Referring Physcian: Kev Ordonez MD Name: José Miguel Keys Age: [age] year old 3 Hospital course Less drainage Surgery later today No diarrhea No fevers chills Exam Vitals: 05/02/19 0120 05/02/19 0134 05/02/19 0507 05/02/19 0822 BP: 124/75 138/85 132/72 Pulse: 79 80 74 93 Resp: Temp: 97.4 ??F (36.3 ??C) 97.5 ??F (36.4 ??C) 97.8 ??F (36.6 ??C) SpO2: 99% 100% 100% 99% Weight: Height: Temp (30hrs) Max:98.2 ??F (36.8 ??C) General appearance: alert, cooperative, no distress, cooperative, no distress, appears stated age, alert HEENT: ncat, vision intact/perrl, mmm/no lesion, neck supple/nt Lungs: clear to auscultation bilaterally Heart: regular rate and rhythm, S1, S2 normal, no murmur, click, rub or gallop, Abdomen: soft, non-tender; bowel sounds normal; no masses, no organomegaly Extremities: rt hip swelling pain, drainage less swelling than few days ago Skin: no rash/lesion Lines: MEDICATIONS FOR CURRENT ENCOUNTER: SCHEDULED MEDICATIONS: albuterol (PROVENTIL;VENTOLIN) (5 MG/ML) 0.5% nebulizer solution 2.5 mg, Inhalation, 4X/day budesonide-formoterol (SYMBICORT) 160-4.5 MCG/ACT inhaler 2 puff, Inhalation, BID bumetanide (BUMEX) tablet 0.5 mg, Oral, BID metoprolol succinate XL 24hr (TOPROL XL) tablet 50 mg, Oral, QDAY tamsulosin (FLOMAX) capsule 0.4 mg, Oral, AT BEDTIME tiotropium (SPIRIVA RESPIMAT) 2.5 MCG/ACT inhaler 2 puff, Inhalation, QDAY vancomycin (VANCOCIN) IV dose per pharmacy, Does not apply, DIRECTED vancomycin HCl (VANCOCIN) 1,500 mg in 0.9% NaCl 500 mL IVPB, Intravenous, q18h ?? [MAR Hold] rifAMPin (RIFADIN) capsule 300 mg, Oral, TID Data Recent Labs Component Name 05/02/190 05/01/194 04/30/19 024 WBC 6.6 7.2 7.9 HGB 10.8* 10.6* 10.5* HCT 36.7 35.6 35.3 PLTCOUNT 143* 148* 159 Recent Labs Component Name 05/02/190 05/01/19 0244 04/30/19 024 SODIUM 138 141 138 POTASSIUM 3.6 4.7 3.4* CHLORIDE 102 106 105 CO2 27 26 26 BUN 20 25 24 CREATININE 1.13 1.04 1.00 GLUCOSE 98 89 101 CALCIUM 9.4 9.8 9.5 Recent Labs Component Name 05/02/190 04/30/19 0242 02/03/19 0106 ALBUMIN 3.6 3.5 3.1* ALKPHOS 211* 188* 304* ALT 26 27 21 AST 25 30 20 TBIL 1.1 0.5 1.0 TPROT 7.3 6.9 7.0 No results for input(s): CDIFFTOXINAB in the last 63966 hours. Recent Labs Component Name 04/24/19 1141 SEDRATE 70* Recent Labs Component Name 04/24/19 1140 08/15/17 0348 08/09/17 0745 CRP 1.41* 4.1* 32.0* No results for input(s): CK in the last 37263 hours. .No results for input(s): VANCOTROUGH, VANCOPEAK, VANCSERIES in the last 82649 hours. 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 Errors may havebeen missed upon review. Raysa Nevarez MD [facility] * Larry Alexander MD - 05/02/2019 6:23 AM CST Images from the original note were not included. [facility] Orthopedic Surgery Daily Progress Note José Miguel Keys, 68 year old, male : 1950 CSN: [id number] Primary Care Physician: Briana Medeiros MD - Admission Date/Time: 04/29/2019 5:18 AM - Hospital Day: 3 Subjective Patient seen and examined this AM on rounds. No new problems or issues overnight. Pain controlled this morning. Plan for OR today; right hip I&D, explantation of prior ARNALDO components, antibiotic spacer placement. Vitals Temp (24hrs), Av.7 ??F (36.5 ??C), Min:97.4 ??F (36.3 ??C), Max:98.2 ??F (36.8 ??C) BP 138/85 Pulse 74 Temp 97.5 ??F (36.4 ??C) (Axillary) Resp 18 Ht 5' 11 (1.803 m) Wt 220 lb (99.8 kg) SpO2 100% BMI 30.68 kg/m2 Labs Recent Labs Component Name 05/02/19 0410 05/01/19 0244 04/30/19 0242 WBC 6.6 7.2 7.9 HGB 10.8* 10.6* 10.5* HCT 36.7 35.6 35.3 PLTCOUNT 143* 148* 159 Recent Labs Component Name 04/30/19 0242 02/15/19 0307 02/14/19 0346 INR 1.1 1.9* 1.9* Cultures Microbiology Results (Displays last 21 days for this encounter ONLY) Procedure Component Value - Date/Time CULTURE MRSA [[id number]] (Normal) Collected: 04/29/192140 Lab Status: Final result Specimen: Micro from Rectum Updated: 05/01/19523 Culture Negative for methicillin-resistant Staphylococcus aureus (MRSA) CULTURE VRE [[id number]] (Abnormal) Collected: 04/29/192140 Lab Status: Final result Specimen: Micro from Rectum Updated: 05/01/19 0609 Culture Growth of Enterococcus species vancomycin-resistant (VRE) Narrative: For vancomycin-resistant enterococci (VRE), contact precautions are required. For any questions, call Infection Prevention. CULTURE ABSCESS+GRAM STAIN [[id number]] (Normal) Collected: 04/29/192140 Lab Status: Preliminary result Specimen: Micro from Hip Updated: 05/01/19 142 Culture Culture in progress Gram Stain Rare Polymorphonuclear cells No organisms seen CULTURE BLOOD [[id number]] Collected: 04/29/191908 Lab Status: Preliminary result Specimen: Blood Peripheral Updated: 05/01/192199 Culture No growth CULTURE BLOOD [[id number]] Collected: 04/29/191908 Lab Status: Preliminary result Specimen: Blood Peripheral Updated: 05/01/192199 Culture No growth CULTURE MRSA [[id number]] (Abnormal) Collected: 04/29/191755 Lab Status: Final result Specimen: Micro from Nasal Updated: 05/01/19518 Culture Growth of Staphylococcus aureus methicillin-resistant (MRSA) Narrative: Methicillin-resistant Staphylococci (MRSA) are resistant to all currently available beta-lactam antibiotics with the exception of the newer cephalosporins with anti-MRSA activity. Contact precautionsrequired. Physical Exam General appearance: Awake, cooperative, no acute distress, Right lower extremity: -Appearance: persistent wound drainage from superior aspect of wound -Motor: Able to plantarflex ankle, able to dorsiflex ankle, able to plantarflex great toe, able to dorsiflex great toe -Sensation: SILT to dorsal and plantar foot -Vascular: 2+ DP pulse with toes warm and well perfused Assessment/Plan Active Problems: Infection of right prosthetic hip joint Patient is a 68 year old, male with infected right total hip arthroplasty 1. Activity/Weight-bearing status: WBAT RLE 2. Plan for OR today for right hip I&D, component explantation, antibiotic spacer placement 3. Anticoagulation Status: hold 4. Antibiotics: per ID 5. Obtain consent 6. Gentamycin 400mg ordered. Please administer on floor prior to patient being called for OR 7. Pain Control 8. Orthopedics will continue to follow. Please page with any questions or concerns Alberto De Los Santos MD 05/02/2019 6:24 AM Patient seen and examined, agree with above resident note. Site marked This patient? s prior H&P was reviewed, the patient was examined and no change has occurred in the patient's condition since the prior H&P was completed. Briefly, this is a 68 year old male with right hip pain secondary to MRSA infected right total hip arthroplasty with persistent drainage. Exam reveals right hip limitation of and pain with ROM. Complete examination/plan noted above. I personally examined the patient and edited and agree with the above findings in the note Assessment/Plan: Conservative treatment for MRSA infected right total hip arthroplasty with persistent drainage including >12 weeks of PT, NSAIDS, glucosamine/Vit D, ambulatory aids, and previous multiple irrigation and debridements with modular component exchange with long-term IV antibiotics fo llowed by oral antibiotics has failed. Further conservative treatment which has been unsuccessful is contraindicated as it would lead to further debility and worsening deconditioning. Symptoms of pain, difficulty ambulating, increased risk of falling due to poor range of motion and instability/locking/and catching, difficulty standing, difficulty with stair climbing and difficulty with personal hygiene are interfering with patient's lifestyle. Will proceed with previously discussed resection ofinfected right hip arthroplasty utilizing extended trochanteric osteotomy with placement of antibiotic cement spacer Risks, benefits, and alternatives to the surgical procedure were discussed with the patient and present family members. Risks discussed among others were: Infection, bleeding/blood transfusion, neurovascular damage, prosthetic joint instability, failure to improve symptoms, venous thrombosis/pulmonary embolism, and anesthesia complications including . We also discussed the procedure at length and answered any of the patient's questions. We also discussed the importance of early motion and early active ankle pumps for DVT/PE prevention and demonstrated this to the patient and had active participation as well. Patient understood the treatment plan and all questions were answered. The patient is admitted with a diagnosis or diagnoses of MRSA infected right total hip arthroplastywith persistent drainage and current medical/postoperative needs are included below. The patient has the following complex medical factors: No current facility-administered medications on file prior to encounter. Current Outpatient Medications on File Prior to Encounter Medication Sig Dispense Refill ??? acetaminophen (TYLENOL) [...] by mouth once daily ??? nystatin (NYSTOP) 892604 UNIT/GM powder Apply to affected area 2 times daily as needed Apply togroin area twice a day as needed. ??? omeprazole (PRILOSEC) 40 MG capsule Take 40 mg by mouth daily before breakfast ??? polyethylene glycol 3350 (MIRALAX) packet Take [...] as needed. ??? vitamin D, ergocalciferol, (DRISDOL) 54151 UNITS capsule Take 50,000 Units by mouth every 7 days 0 Past Medical History: Diagnosis Date ??? Actinic [...] ??? S/P PICC central line placement 02/13/2019 [facility] VAT R basilic ??? Seizures ??? Squamous cell carcinoma ??? VRE (vancomycin resistant enterococcus) culture positive 04/29/2019 rectal swab+ Past Surgical History: Procedure Laterality Date ??? Cataract Removal Bilateral ??? ENDOSCOPY, UPPER N/A 09/15/2017 N/A; ESOPHAGOGASTRODUODENOSCOPY (EGD) DIAGNOSTIC ??? EXCISION BURSA Right 02/08/2019 Right; EXCISION BURSA (BURSECTOMY) TROCHANTERIC/HIP ??? GENERAL SURGERY PROCEDURE Right 02/04/2019 Right; PLACEMENT WOUND VAC ??? HIP ARTHROPLASTY, REVISION Right 02/08/2019 Right; REVISION HIP ARTHROPLASTY BOTH COMPONENT ??? HX JOINT REPLACEMENT ??? HX JOINT REPLACEMENT right hip 2006, left hip 2009 ??? INCISION AND DRAINAGE Right 02/04/2019 Right; IRRIGATION AND DEBRIDEMENT WOUND HIP ??? Tracheostomy N/A 09/13/2017 N/A; TRACHEOSTOMY 15 Point review of systems was otherwise negative as reviewed today. Social History Occupational History ??? Not on file Tobacco Use ??? Smoking status: Former Smoker Last attempt to quit: 06/06/1981 Years since quittin.9 ??? Smokeless tobacco: Never Used Substance and Sexual Activity ??? Alcohol use: No ??? Drug use: No ??? Sexual activity: Not on file Family History Problem Relation Age of Onset ??? Coronary Artery Disease Mother age 65 ??? Cirrhosis Father ??? Cancer - Breast Neg Hx ??? CVA Neg Hx ??? Hemophilia Neg Hx ??? Cancer - Other Neg Hx ??? Eczema Neg Hx ??? Psoriasis Neg Hx ??? Cancer - Skin, Non Melanoma Neg Hx ??? Cancer - Skin, Melanoma Neg Hx Please see resident's note for further details. [facility] * Clraice Carver RN - 05/02/2019 6:06 AM CST Pt. A & O x 4, c/o right hip pain, prn meds provided, up adlib with walker to bathroom,on cpap @ bedtime,NPO since midnight, reminded to call for any assistance, call light within easy reach. [employer] MEDIA * Genevieve Crowder RCP - 05/02/2019 1:36 AM CST Problem: Oxygenation/Respiratory Function Goal: Patent airway Outcome: Ongoing Goal: Patient exhibits no evidence of increased respiratory distress Outcome: Ongoing Mr. Keys is taking Q 6 neb treatments along with his HCPAP, RT will continue to monitor.Genevieve Crowder, Respiratory Care Practitioner 05/02/2019 1:37 AM [facility] MEDIA * Clarice Carver RN - 05/01/2019 9:45 PM CST Problem: Low Fall Risk (Score 7-10) Goal: Patient will remain safe from falls and injury. Outcome: Ongoing Problem: Infection Goal: Signs and symptoms of infections are decreased or avoided Outcome: Ongoing Problem: Isolation Goal: Prevent Transmission of Infection Outcome: Ongoing Problem: Pain/Discomfort Goal: Patient uses pharmacological and non-pharmacological pain management strategies. Outcome: Ongoing Problem: Nutrient: Increased nutrient needs (specify) Goal: Total intake will meet estimated nutrient needs Description Estimated Needs: KCAL: 1996kcal(20kcal/kg of bw) Protein (g): 99-119gm(1-1.2gm/kg of bw) Fluid (ml): 1 ml/kcal Needs based on: Kcal/kg- (Comment) Recommended Access Route: PO Outcome: Ongoing [facility] MEDIA * Efrain Rojas RN - 05/01/2019 8:06 PM CST Shift summary: patient up to recliner chair, pain med given as ordered, oint applied to both eyes due to redness and itching,l hip dressing intact appetite good, family at bedside, call light and phone within reach. [employer]IA * Efrain Rojas RN - 05/01/2019 5:07 PM CST Resp Therapy notified to complete EKG this evening, but realized it was already completed. [employer] [facility]IA * Kev Ordonez MD - 05/01/2019 3:22 PM CST Admit Date: 04/29/2019 5:18 AM Hospital Day: 2 Clinical Course José Miguel D Keys is a 68 yo male??with a history of CAD,??atrial fibrillation, COPD, cirrhosis, VALENTINA and complex history of MRSA bacteremia and epidural abscess in 2018.He has a history of right total hip arthoplasty in 2005. He was admitted on 02/02 with a week of right hip pain; CT revealeda right hip abscess for which he underwent I/D by orthopaedics on 02/04 and 02/08. Cultures grew MRSA. The patient has been on vancomycin. ID consulted; recommending vancomycin and rifampin??through 04/01 following by chronic suppression with doxycycline 100 mg BID for at least 6 month??which she is still continuing. New Symptoms Pt resting in chair. Complaining bilateral eye rash. Patient denies chest pain, shortness of breath, abdominal pain, nausea, vomiting, diarrhea, constipation, urinary problems or leg pain. Exam Vitals: 05/01/19 0237 05/01/19 0612 05/01/19 0817 05/01/19 1259 BP: 136/86 143/79 143/72 Pulse: 82 72 75 Resp: 18 Temp: 97.5 ??F (36.4 ??C) 97.6 ??F (36.4 ??C) 97.9 ??F (36.6 ??C) SpO2: 98% 99% 99% 98% Weight: Height: GEN: in NAD HEENT:NCAT, EOMI, MMM. Scaly rash bilateral periorbital region. RESP: Clear to auscultation bilaterally CARDIO: Regular rate and rhythm, Nl S1 and S2 No gallops. GI: Abdomen soft and non tender, non-distended, +BS, no organomegaly EXT: No edema. MSK: Moves all extremities NEURO: A+Ox3, no focal deficits SKIN: serosanguinous drainage from right hip wound Data Intake/Output Summary (Last 24 hours) at 05/01/2019 1522 Last data filed at 05/01/2019 0821 Gross per 24 hour Intake 1340 ml Output -- Net 1340 ml No data found. Recent Labs Component Name 05/01/19 0244 04/30/19 0242 02/15/19 0307 10/10/18 1515 09/19/17 0243 09/18/17 0003 WBC 7.2 7.9 8.5 - 7.1 8.5 8.7 RBC 3.98 4.01 2.74* - 3.94* 2.85* 3.09* HGB 10.6* 10.5* 7.4* - 11.0* 8.1* 8.8* HCT 35.6 35.3 25.0* - 34.5* 28.0* 29.6* MCV 89.4 88.0 91.2 - 87.6 98.2* 95.8 MCHC 29.8* 29.7* 29.6* - 31.9* 28.9* 29.7* RDW - - - - 14.0 21.3* 21.4* RDWCV 15.9* 15.9* 17.0* - - - - PLTCOUNT 148* 159 284 - 183 208 199 NEUTPCT 62.7 64.6 72.9 - - 79.2* 79.2* LYMPHPCT 11.7* 10.3* 8.7* - 9.3 - - EOSINPCT - - - - 4.2 - - BASOPHILPCT 0.8 0.6 0.5 - 0.6 - - GRANSIMMPCT 0.3 0.3 1.9* - - - - LYMPHABS 0.84* 0.81* 0.74* - - - - BASOABS 0.06 0.05 0.04 - - - - NRBCAUTO 0 0 0 - - - - - = values in this interval not displayed. Recent Labs Component Name 05/01/19 0244 04/30/19 0242 04/29/19 0644 02/03/19 0106 09/06/17 1157 SODIUM 141 138 140 - 134* - - POTASSIUM 4.7 3.4* 3.6 - 4.3 - 3.8 CHLORIDE 106 105 107 - 101 - - CO2 26 26 23 - 25 - 20* BUN 25 24 30* - 19 - 21 CREATININE 1.04 1.00 1.14 - 1.22* - 0.7 GLUCOSE 89 101 102 - 112* - - CALCIUM 9.8 9.5 9.3 - 9.5 - 8.5 ALBUMIN - 3.5 - - 3.1* - - ALKPHOS - 188* - - 304* - 204* ALT - 27 - - 21 - 10 AST - 30 - - 20 - 21 TBIL - 0.5 - - 1.0 - - TPROT - 6.9 - - 7.0 - - EGFR >60 >60 >60 - 59 - >60 - = values in this interval not displayed. No results for input(s): MAGMGDL in the last 03010 hours. Recent Labs Component Name 09/19/17 0243 09/18/17 0003 09/17/17 0433 PHOS 2.5 2.8 3.2 Recent Labs Component Name 02/04/19 0617 COLORUA Yellow CLARITYUA Cloudy* SPECGRAVUA 1.021 PHUA 5.0 PROTEINUA Negative BLOODUA Negative LEUKOCYTEUA Negative NITRITEUA Negative GLUCOSEUA Negative KETONEUA Trace* BILIRUBINUA Negative UROBILINUA Negative Recent Labs Component Name 09/15/17 0441 09/11/17 0437 08/26/17 1420 BNP 694* 806* 552* Recent Labs Component Name 09/06/17 1157 08/26/17 1420 TROPONINI 0.027 <0.010 Recent Labs Component Name 02/03/19 0413 02/03/19 0106 02/02/19 2238 LACTICACID 0.7 0.8 0.9 Recent Labs Component Name 04/30/19 0242 02/15/19 0307 02/14/19 0346 02/04/19 0737 09/10/17 0549 09/07/17 0428 INR 1.1 1.9* 1.9* - 1.0 - - - 1.6 PT 13.9 18.9* 18.3* - 11.1 - - - 18.8* PTT - - - - 26.4 - 29.7 - 32.8 - = values in this interval not displayed. Recent Labs Component Name 02/03/19 0106 07/14/17 2212 HGBA1C 5.8 6.3 MEDICATIONS FOR CURRENT ENCOUNTER: SCHEDULED MEDICATIONS: albuterol (PROVENTIL;VENTOLIN) (5 MG/ML) 0.5% nebulizer solution 2.5 mg, Inhalation, 4X/day budesonide-formoterol (SYMBICORT) 160-4.5 MCG/ACT inhaler 2 puff, Inhalation, BID bumetanide (BUMEX) tablet 0.5 mg, Oral, BID metoprolol succinate XL 24hr (TOPROL XL) tablet 50 mg, Oral, QDAY rifAMPin (RIFADIN) capsule 300 mg, Oral, TID tamsulosin (FLOMAX) capsule 0.4 mg, Oral, AT BEDTIME tiotropium (SPIRIVA RESPIMAT) 2.5 MCG/ACT inhaler 2 puff, Inhalation, QDAY vancomycin (VANCOCIN) IV dose per pharmacy, Does not apply, DIRECTED ?? [START ON 05/02/2019] vancomycin HCl (VANCOCIN) 1,500 mg in 0.9% NaCl 500 mL IVPB, Intravenous, q18h ?? CONTINUOUS MEDICATIONS: PRN MEDICATIONS: acetaminophen (TYLENOL) tablet 650 mg, Oral, q4h PRN acetaminophen (TYLENOL) tablet 650 mg, Oral, q6h PRN diphenhydrAMINE (BENADRYL) capsule 25 mg, Oral, q6h PRN diphenhydrAMINE-zinc acetate (BENADRYL EXTRA STRENGTH) 2-0.1 % cream, Topical, PRN fentaNYL (PF) (SUBLIMAZE) injection 25 mcg, Intravenous, q4h PRN ?? traMADol (ULTRAM) tablet 50 mg, Oral, q6h PRN Assessment and Plan # Right hip wound drainage, concerning for possible infection - ID and ortho to evaluate - empiric iv vanc and rifampin - OR 05/02: right hip I&D, explantation of prior hip components, antibiotic spacer placement. - will obtain TTE, EKG and CXR as part of risk evaluation. - preliminarily: pt has METS of about 4, as his exercise capacity is limited by hip pain. His RCRI is 1-2 (CAD/?HFpEF) and carries a low-moderate risk of cardiac complications during this low risk operation. # COPD - cont home symbicort and spiriva - duonebs prn ?? # Atrial fibrillation # CAD # ? HFpEF - currently on metoprolol - holding eliquis. Restart after surgery - restarted bumex ?? # VALENTINA - bipap qhs DVT ppx: SCDs Code status: Full Disposition: Will need placement s/p OR 05/02. Maybe early next week Due to medical issues in the assessment and plan, continued hospitalization will be required. Kev Ordonez MD Internal Medicine 05/01/2019 Feel free to text page me through [employer], login smsl [facility] MEDIA * Bryanna Jc, PharmD - 05/01/2019 1:36 PM CST Vancomycin Per Pharmacy (Day 3) 68 year old male receiving vancomycin 1250 mg IV q24h for the management of infected right ARNALDO. ID is following. Other Anti-infectives: Rifampin Vitals: Height: 5' 11 (180.3 cm) (04/29/19525) Weight: 99.8 kg (220 lb) (04/29/19525) Temp (24hrs) Max:98.1 ??F (36.7 ??C) Current Labs: Recent Labs Component Name 05/01/19 0244 04/30/19 0242 04/29/19 0644 02/15/19 0307 BUN 25 24 30* 17 CREATININE 1.04 1.00 1.14 1.02 WBC 7.2 7.9 - 8.5 Renal: Estimated Creatinine Clearance: 79.6 mL/min (based on SCr of 1.04 mg/dL). Cultures: 04/29 hip abscess cx: NOS 04/29 bloodcx:NGTD X 2 sets Levels: Recent Labs Component Name 05/01/19 0749 04/29/19 0644 02/15/19 1650 02/12/19 0922 02/07/19 0409 02/06/19 0419 VANCORNDM - 10.5 - - 20.9 19.2 VANCTROUGH 8.1* - 16.5 22.6* - - Vancomycin trough goal:15-20 mcg/mL WBC and SrCr WNL and stable. Trough subtherapeutic. Will change regimen to 1500mg q18h. Will obtain a vancomycin level on 05/03. Will continue to monitor and will adjust regimen if necessary. Bryanna Jc, PharmD [facility] * Fay Otero, CINDER BLOCK MASON - 05/01/2019 1:23 PM CST CASE reviewed during MDR rounds. PER rounds pt will need some level of rehab at d/c. CINDER BLOCK MASON will continue to follow and coordinate d/c. [facility] MEDIA * Paz Chen RN - 05/01/2019 1:21 PM CST Case Management Progress Note Anticipated level of care at discharge: Home Health Care Comment: TBD Discharge Plan: patient states he prefers home with therapy. is well and able to assist. Patient has a bedside commode. He is in the process of having a ramp built to the house. His son lives with him also and is home during the day. He is established with [facility]. Patient has had several rehab stays since his original hip replacement. He lives in [facility]. He will consider acute rehab here at [facility] if necessary. Patient does not know if he willneed home iv anbx. Patient does know he will be 3 months NWB L le. Patient states he will be hospitalized for 2 weeks. Cm informed patient he may not need to stay that long Patient is a [employer] [place] with 100% disability. 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 Basic Needs Assessment (BNA) Score: 9 Complex Needs Assessment (RADIO STATION MANAGER) Score: 10 Social Support Domain Score: 2 Medical Status and Health Trajectory Domain Score: 8 Medical Home and Access to Services Domain Score: 0 Anticipated Discharge Date: Anticipated Discharge Date: 05/03/19 Transportation at Discharge: Family Transportation to MD:Family Equipment at Home: Equipment At Home: Commode-Bedside;Walker-2 Wheeled;Walker-4 Wheeled with Seat;Wheelchair-Standard(BSC has drop arms) Additional DME needed: Pharmacy benefit: Yes Auth Number (if required) NH: DME: Medications: Transportation: Name: Paz Chen RN Phone: [phone] [facility] MEDIA * Wendy Cid, PT - 05/01/2019 11:18 AM CST Physical Therapy Initial Evaluation Today's Date: 05/01/2019 Patient Name: José Miguel Keys Referring Physician:Kev Ordonez MD Referral Diagnosis: 1. 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 Coronary artery disease without angina pectoris, unspecified vessel or lesion type, unspecified whether redding or transplanted heart 3. Chronic atrial fibrillation PT Referral: evaluation and treatment Precaution/ Restrictions: Falls and WBAT R LE at present time Past Medical History: Past Medical History: Diagnosis [...] ??? S/P PICC central line placement 02/13/2019 [facility] VAT R basilic ??? Seizures ??? Squamous cell carcinoma ??? VRE (vancomycin resistant enterococcus) culture positive 04/29/2019 rectal swab+ Past Surgical History: Past Surgical History: Procedure Laterality Date ??? Cataract Removal Bilateral ??? ENDOSCOPY, UPPER N/A 09/15/2017 N/A; ESOPHAGOGASTRODUODENOSCOPY (EGD) DIAGNOSTIC ??? EXCISION BURSA Right 02/08/2019 Right; EXCISION BURSA (BURSECTOMY) TROCHANTERIC/HIP ??? GENERAL SURGERY PROCEDURE Right 02/04/2019 Right; PLACEMENT WOUND VAC ??? HIP ARTHROPLASTY, REVISION Right 02/08/2019 Right; REVISION HIP ARTHROPLASTY BOTH COMPONENT ??? HX JOINT REPLACEMENT ??? HX JOINT REPLACEMENT right hip 2005, left hip 2008 ??? INCISION AND DRAINAGE Right 02/04/2019 Right; IRRIGATION AND DEBRIDEMENT WOUND HIP ??? Tracheostomy N/A 09/13/2017 N/A; TRACHEOSTOMY Allergies: Allergies Allergen Reactions ??? Penicillins Skin Reactions and Swelling ??? Levaquin [Levofloxacin] Eye Itching red around the eyes , puffy, itchy ??? Scopace [Scopolamine] Other and CRIMPER ASSEMBLER Dysfunction delirium History of Present Illness: Patient is a 68 y/o male who was admitted from home to [facility] on 04/29/19 with dx of: infected right total hip arthroplasty and persistent wound drainage s/p 02/08 right hip I&D, head and spacer exchange . SUBJECTIVE: Patient seen this AM at b/s on 2E for skilled PT evaluation and treatment. Patient states, I need to get myself together, and I need to get something for my eyes (pt noted to be rubbing them repeatedly during session, making them more red) . Occupation: retired and 100% disabled . Patient/family stated goal: go home PLOF: Per patient, immediately prior to this admission patient was modified indep with functional mobility (bed mobility, transfers) and modified indep with household and short distance community ambulation with use of w/w. Reports he would have spouse push him in w/c for longer community distances. Reports he is modified indep with BADLs and spouse and/or family/friends would complete IADLs since having R hip issues. H/O Falls: no Fallen Within 6 Mos: No Social History: Have Help at Home?: Yes, there is help at home now How often is assistance provided?: PRN from spouse for BADLs, spouse completing all IADLs Level of Help Sufficient?: Other (Comment)(TBD post-op) Activity at Home: Sedentary Vision: Corrected with glasses Hearing Exceptions: No impairment Who manages medications?: self Living environment: Type of Residence: Private Residence Lives with:: Spouse Home Structure: Other (Comment)(tri-level house) Steps to Enter: 1(from back) Ramp: No(reports he can get one built in the back if needed) Primary Bedroom: Second Floor Primary Bathroom: First Floor Bathroom : Tub/Shower Combo Equipment At Home: Commode-Bedside;Walker-2 Wheeled;Walker-4 Wheeled with Seat;Wheelchair-Standard(BSC has drop arms) Pain: Pain Rating Score #: 6(6/10 at rest; 7/10 with amb/activity) Pain Location : Hip Pain Orientation: Right Pain Quality: Aching Aggravating Factors: Activity Relieved By: Rest;Medications;Position OBJECTIVE: Orders received by PT for initial evaluation, chart reviewed, & communication with Efrain DIGGS toinform that PT evaluation to be completed at this time. Patient gives verbal consent for evaluation/treatment this date. Observation: Patient presents for skilled PT Initial Evaluation sitting upright in b/s chiar on room air in no apparent distress with HLIV. Current drips at time of session: --none Cognition: Orientation Level: Oriented X4 Cognition: Follows Commands-Consistent;Processing-Appropriate;Attention/concentration-normal for age;Follows one step commands;Judgement-decreased;Safety awareness-decreased Participation: Active Participation Attention Span: Appears intact Memory: Decreased recall of precautions Following Commands: Follows one step commands with repetition/cues Safety Judgement: Decreased awareness of need for safety Awareness of Errors: Assistance required to correct errors made;Assistance required to identify errors made UE Assessment: Defer to OT eval LE Assessment: ROM and Strength: AROM - Right Lower Extremity: Exceptions(limited to ~100 deg hip flex 2/2 pain) Strength - Right Lower Extremity: Exceptions(grossly 3+/5 hip; 4/5 otherwise throughout) AROM - Left Lower Extremity: Within Functional Limits Strength - Left Lower Extremity: Within Functional Limits Sensation: Sensation - Right Lower Extremity: Exceptions Sensation - Left Lower Extremity: Exceptions Tone: Tone - Left Lower Extremity: Within Normal Limits Tone - Right Lower Extremity: Within Normal Limits Mobility: Mobility completed both as WBAT R LE, as per current orders. However, also practiced TTWBR LE in prep for upcoming surgery. Bed mobility: Rolling: Activity Does Not Occur Supine to Sit: Activity Does Not Occur(OOB upon arrival; remains OOB after tx) Sit to Supine: Activity Does Not Occur Transfers: Sit to Stand: Stand By Assist;Minimal Assistance;Requires Verbal Cues for Safety;Requires Verbal Cues for Technique;Requires Physical Cues for Technique(SBA with WBAT R LE; min TTWB R LE) Stand to Sit: Stand By Assist;Moderate Assistance;Requires Verbal Cues for Safety;Requires Verbal Cues for Technique;Requires Physical Cues for Technique(SBA with WBAT R LE; min-mod when TTWB R LE) Chair to Bed: Activity Does Not Occur Bed to Chair: Stand By Assist;Minimal Assistance to Right;Requires Verbal Cues for Safety;Requires Verbal Cues for Technique;Requires Physical Cues for Technique(SBA WBAT R LE; min assist of 1 TTWB RLE) Type of Transfer: Stand Pivot Transfer(with bilat UE support) Gait: Distance Ambulated: 200 FEET(200'=25'x1 TTWB R LE; 75'x1 and 100'x1 WBAT R LE) Ambulation: Assistive Device: Gait Belt;Walker-2 Wheeled(chair follow) Ambulation: Level of Assistance: Stand By Assist;Minimum Assistance;Requires Verbal Cues for Safety;Requires Verbal Cues for Technique;Requires Physical Cues for Technique Ambulation: Gait Deviations: Base of Support - Increased;Bernarda - Decreased;Increased Trunk Flexion;Increased Weight Bearing through Upper Extremity;Push Off - Decreased;Step Length - Decreased Pain Rating Score #: 6(6/10 at rest; 7/10 with amb/activity) Stairs: NT Balance: Sitting - Static: Normal Sitting - Dynamic: Normal Standing - Static: Good -;With Both Upper Extremity's Support Standing - Dynamic: Fair;With One Upper Extremity Support Education: Please refer to education activity button tab in Epic chart for education provided to patient/caregiver & response to education provided this date. In addition, patient was also educated on purpose of PT, WBS R LE pre and post-op. Patient was educated on and verbalizes fair awareness of the therapy diagnosis and prognosis and agrees with the treatment plan and goals. Treatment today: PT eval complete. See filed flowsheet under Summary for details in addition to what is noted above. PT treatment provided at this time includes: -- in supine, R LE, x10 reps, with 5 sec holds each: Glut sets, quad sets -- seated bilat LE ex, 2x5 reps each: Ankle pumps, LAQ, hip flexion/march Patient positioned in supportive upright sitting in b/s chair upon end of PT session this date. Alllines in good working order. Call light, phone, & tray table in reach. Efrain DIGGS aware of patient's position following PT session. ASSESSMENT: Patient presents with signs and symptoms consistent with MD dx with resultant impairments/problems noted below resulting in decreased functional independence/change from patient's functional baselinelevel. Problem list/Impairments: Decreased strength Decreased ROM Decreased endurance Impaired gait/mobility Decreased balance Decreased coordination Impaired safety awareness Decreased knowledge of condition Decreased pain tolerance Need for family/caregiver training Rationale for therapy:?? Patient will benefit from skilled PT services to address the impairments noted above in order to improve functional mobility & increase independence toward patient's PLOF. Patient will be seen for:?? exercise, transfers, gait training, balance, endurance training, education regarding condition, monitored mobility.?? Goals:?? Please refer to system Plan of Care for PT goals for patient.? Rehab prognosis is fair for therapy goals as set. Patient is cooperative with PT throughout session with min-mod encouragement for full effort as able. Noted to have flatter, depressed affect. Expresses that he is very frustrated about his current medical situation. Currently demonstrates good overall functional mobility, but it is anticipated that patient will have more difficulty with all functional mobility post-op when his WBS R LE will change. Will require re-evaluation post-op to determine most appropriate level of care upon d/c and for education re: condition and mobility. PLAN: Patient to be seen for skilled PT services while in acute care hospital as schedule permits to worktoward improving functional mobility & achievement of goals until all goals are achieved or patient reaches functional plateau with progress.?? Recommendations: --To be determined. Patient will be reassessed post-op to determine most appropriate level of care,as he will have a change in WBS to R LE post-op. This plan of care will be discussed with Physical Therapist Dispatcher Service Chief(s) who will be assisting withtreatments. If this is the last Physical Therapy visit, this serves as the discharge summary. Thank you for referring this patient for skilled PT services. Wendy Pereira, PT, DPT As[facility] #[id number] [facility] * Alanna (Ot)Mike OT - 05/01/2019 10:38 AM CST OT eval/treat orders noted. Chart review completed. Attempted to see patient for Occupational Therapy, unable to complete evaluation/treatment at this time d/t patient currently working with PT. Willattempt to see at a later date/time if schedule permits. Addendum: Attempted to see patient for a second time at 13:10 pm. Patient currently having lunch. Will attempt to see at a later date/time if schedule permits. Thank you, LASHANDA Padgett/Alissa Ascom#[id number] [facility] * Raysa Nevarez MD - 05/01/2019 8:44 AM CST Infectious Diseases Consult Note Patient's Primary Care Physician: Briana Medeiros MD Reason for Consultation: Rt hip septic arthritis Referring Physcian: Kev Ordonez MD Name: José Miguel Keys Age: [age] year old 2 Hospital course Surgery is going to be done tomorrow No diarrhea No fevers chills Exam Vitals: 05/01/19 0232 05/01/19 0237 05/01/19 0612 05/01/19 0817 BP: 136/86 143/79 Pulse: 72 82 72 Resp: 18 Temp: 97.5 ??F (36.4 ??C) 97.6 ??F (36.4 ??C) SpO2: 98% 98% 99% 99% Weight: Height: Temp (30hrs) Max:98.2 ??F (36.8 ??C) General appearance: alert, cooperative, no distress, cooperative, no distress, appears stated age, alert HEENT: ncat, vision intact/perrl, mmm/no lesion, neck supple/nt Lungs: clear to auscultation bilaterally Heart: regular rate and rhythm, S1, S2 normal, no murmur, click, rub or gallop, Abdomen: soft, non-tender; bowel sounds normal; no masses, no organomegaly Extremities: rt hip swelling pain, drainage less swelling than few days ago Skin: no rash/lesion Lines: MEDICATIONS FOR CURRENT ENCOUNTER: SCHEDULED MEDICATIONS: albuterol (PROVENTIL;VENTOLIN) (5 MG/ML) 0.5% nebulizer solution 2.5 mg, Inhalation, 4X/day budesonide-formoterol (SYMBICORT) 160-4.5 MCG/ACT inhaler 2 puff, Inhalation, BID metoprolol succinate XL 24hr (TOPROL XL) tablet 50 mg, Oral, QDAY rifAMPin (RIFADIN) capsule 300 mg, Oral, TID tamsulosin (FLOMAX) capsule 0.4 mg, Oral, AT BEDTIME tiotropium (SPIRIVA RESPIMAT) 2.5 MCG/ACT inhaler 2 puff, Inhalation, QDAY vancomycin (VANCOCIN) IV dose per pharmacy, Does not apply, DIRECTED vancomycin HCl (VANCOCIN) 1,250 mg in 0.9% NaCl 250 mL IVPB, Intravenous, q24h ?? [COMPLETED] potassium chloride ER (KLOR-CON M) tablet 40 mEq, Oral, Once Data Recent Labs Component Name 05/01/19 0244 04/30/19 02402/15/19 0307 WBC 7.2 7.9 8.5 HGB 10.6* 10.5* 7.4* HCT 35.6 35.3 25.0* PLTCOUNT 148* 159 284 Recent Labs Component Name 05/01/19 0244 04/30/19 0242 04/29/19 0644 SODIUM 141 138 140 POTASSIUM 4.7 3.4* 3.6 CHLORIDE 106 105 107 CO2 26 26 23 BUN 25 24 30* CREATININE 1.04 1.00 1.14 GLUCOSE 89 101 102 CALCIUM 9.8 9.5 9.3 Recent Labs Component Name 04/30/19 0242 02/03/19 0106 09/06/17 1157 ALBUMIN 3.5 3.1* - ALKPHOS 188* 304* 204* ALT 27 21 10 AST 30 20 21 TBIL 0.5 1.0 - TPROT 6.9 7.0 - No results for input(s): CDIFFTOXINAB in the last 09665 hours. Recent Labs Component Name 04/24/19 1141 SEDRATE 70* Recent Labs Component Name 04/24/19 1140 08/15/17 0348 08/09/17 0745 CRP 1.41* 4.1* 32.0* No results for input(s): CK in the last 47608 hours. .No results for input(s): VANCOTROUGH, VANCOPEAK, VANCSERIES in the last 53997 hours. 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 Errors may havebeen missed upon review. Raysa Nevarez MD [facility] * Alberto De Los Santos MD - 05/01/2019 7:30 AM CST Images from the original note were not included. [facility] Orthopedic Surgery Daily Progress Note José Miguel Keys, 68 year old, male : 1950 CSN: [id number] Primary Care Physician: Briana Medeiros MD - Admission Date/Time: 04/29/2019 5:18 AM - Hospital Day: 2 Subjective Patient seen and examined this AM on rounds. No new problems or issues overnight. Patient stated that after further discussion with his , he would like to proceed with surgery tomorrow for right hip I&D, explantation of components, antibiotic spacer placement. Vitals Temp (24hrs), Av.8 ??F (36.6 ??C), Min:97.4 ??F (36.3 ??C), Max:98.2 ??F (36.8 ??C) BP 136/86 Pulse 82 Temp 97.5 ??F (36.4 ??C) (Oral) Resp 18 Ht 5' 11 (1.803 m) Wt 220 lb (99.8 kg) SpO2 99% BMI 30.68 kg/m2 Labs Recent Labs Component Name 05/01/19 0244 04/30/19 0242 02/15/19 0307 WBC 7.2 7.9 8.5 HGB 10.6* 10.5* 7.4* HCT 35.6 35.3 25.0* PLTCOUNT 148* 159 284 Recent Labs Component Name 04/30/19 0242 02/15/19 0307 02/14/19 0346 INR 1.1 1.9* 1.9* Cultures Microbiology Results (Displays last 21 days for this encounter ONLY) Procedure Component Value - Date/Time CULTURE MRSA [[id number]] (Normal) Collected: 04/29/192140 Lab Status: Final result Specimen: Micro from Rectum Updated: 05/01/19523 Culture Negative for methicillin-resistant Staphylococcus aureus (MRSA) CULTURE VRE [[id number]] (Abnormal) Collected: 04/29/192140 Lab Status: Final result Specimen: Micro from Rectum Updated: 05/01/19 06 Culture Growth of Enterococcus species vancomycin-resistant (VRE) Narrative: For vancomycin-resistant enterococci (VRE), contact precautions are required. For any questions, call Infection Prevention. CULTURE ABSCESS+GRAM STAIN [[id number]] Collected: 04/29/192140 Lab Status: Preliminary result Specimen: Micro from Hip Updated: 04/30/19627 Gram Stain Rare Polymorphonuclear cells No organisms seen CULTURE BLOOD [[id number]] Collected: 04/29/191908 Lab Status: Preliminary result Specimen: Blood Peripheral Updated: 04/30/192199 Culture No growth 24 hours CULTURE BLOOD [[id number]] Collected: 04/29/191908 Lab Status: Preliminary result Specimen: Blood Peripheral Updated: 04/30/192199 Culture No growth 24 hours CULTURE MRSA [[id number]] (Abnormal) Collected: 04/29/191755 Lab Status: Final result Specimen: Micro from Nasal Updated: 05/01/19518 Culture Growth of Staphylococcus aureus methicillin-resistant (MRSA) Narrative: Methicillin-resistant Staphylococci (MRSA) are resistant to all currently available beta-lactam antibiotics with the exception of the newer cephalosporins with anti-MRSA activity. Contact precautionsrequired. Physical Exam General appearance: Awake, cooperative, no acute distress Right lower extremity: -Appearance: no skin lesions -Motor: Able to plantarflex ankle, able to dorsiflex ankle, able to plantarflex great toe, able to dorsiflex great toe -Sensation: SILT to dorsal and plantar foot -Vascular: 2+ DP pulse with toes warm and well perfused Assessment/Plan Active Problems: Infection of right prosthetic hip joint Patient is a 68 year old, male with infected right total hip arthroplasty and persistent wound drainage s/p 02/08 right hip I&D, head and spacer exchange 1. Activity/Weight-bearing status: WBAT RLE 2. Plan for OR tomorrow: right hip I&D, explantation of prior hip components, antibiotic spacerplacement. 3. Will need clearance for surgery by medicine team. 4. Anticoagulation Status: hold pm dose 5. Antibiotics: per ID 6. Diet: regular. Please make NPO at midnight 7. Pain Control 8. Orthopedics will continue to follow. Please page with any questions or concerns Alberto De Los Santos MD 05/01/2019 7:30 AM [facility] * Lani Gomez RN - 05/01/2019 4:57 AM CST Shift summary: Patient remains alert and oriented; x4. Call light always in reach.(fall risk) @ 2935 Patient complaint of right hip discomfort and received tylenol tab; x2. Patient slept quietly remainder of shift without any further complaints voiced. Right hip dressing remains dry and intact. Patient remains on isolation as ordered. VSS Will continue to monitor. Lani Gomez rn [facility] * Karina Slaughter RN - 04/30/2019 7:33 PM CST Pt resting with call light within reach. Tylenol given for pain. Tolerating diet. No complaints of nausea or vomiting. Pt up with walker and SBA in room. Pt reported x2 BMs. Voiding with no problems.Pt up to chair most of day. Dressing to right hip changed by Dr. Alexander and residents. Will continue to monitor. Karina Slaughter RN 04/30/2019 7:36 PM [facility] * Kev Ordonez MD - 04/30/2019 5:20 PM CST Admit Date: 04/29/2019 5:18 AM Hospital Day: 1 Clinical Course José Miguel Keys is a 68 yo male??with a history of CAD,??atrial fibrillation, COPD, cirrhosis, VALENTINA and complex history of MRSA bacteremia and epidural abscess in 2018.He has a history of right total hip arthoplasty in 2005. He was admitted on 02/02 with a week of right hip pain; CT revealeda right hip abscess for which he underwent I/D by orthopaedics on 02/04 and 02/08. Cultures grew MRSA. The patient has been on vancomycin. ID consulted; recommending vancomycin and rifampin??through 04/01 following by chronic suppression with doxycycline 100 mg BID for at least 6 month??which she is still continuing. New Symptoms Pt resting in chair. Complaining of R hip drainage. Patient denies chest pain, shortness of breath, abdominal pain, nausea, vomiting, diarrhea, constipation, urinary problems or leg pain. Exam Vitals: 04/30/19 0737 04/30/19 0847 04/30/19 1357 04/30/19 1700 BP: 140/89 112/73 Pulse: 68 88 80 58 Resp: 20 20 20 20 Temp: 98.2 ??F (36.8 ??C) 98.1 ??F (36.7 ??C) SpO2: 100% 99% 97% Weight: Height: GEN: in NAD HEENT:NCAT, EOMI, MMM RESP: Clear to auscultation bilaterally CARDIO: Regular rate and rhythm, Nl S1 and S2 No gallops. GI: Abdomen soft and non tender, non-distended, +BS, no organomegaly EXT: No edema. MSK: Moves all extremities NEURO: A+Ox3, no focal deficits SKIN: serosanguinous drainage from right hip wound Data Intake/Output Summary (Last 24 hours) at 04/30/2019 1720 Last data filed at 04/30/2019 1647 Gross per 24 hour Intake 980 ml Output -- Net 980 ml No data found. Recent Labs Component Name 04/30/19 0242 02/15/19 0307 02/14/19 0258 10/10/18 1515 09/19/17 0243 09/18/17 0003 WBC 7.9 8.5 9.6 - 7.1 8.5 8.7 RBC 4.01 2.74* 2.80* - 3.94* 2.85* 3.09* HGB 10.5* 7.4* 7.7* - 11.0* 8.1* 8.8* HCT 35.3 25.0* 26.0* - 34.5* 28.0* 29.6* MCV 88.0 91.2 92.9 - 87.6 98.2* 95.8 MCHC 29.7* 29.6* 29.6* - 31.9* 28.9* 29.7* RDW - - - - 14.0 21.3* 21.4* RDWCV 15.9* 17.0* 17.0* - - - - PLTCOUNT 159 284 288 - 183 208 199 NEUTPCT 64.6 72.9 71.9 - - 79.2* 79.2* LYMPHPCT 10.3* 8.7* 8.6* - 9.3 - - EOSINPCT - - - - 4.2 - - BASOPHILPCT 0.6 0.5 0.5 - 0.6 - - GRANSIMMPCT 0.3 1.9* 2.4* - - - - LYMPHABS 0.81* 0.74* 0.83* - - - - BASOABS 0.05 0.04 0.05 - - - - NRBCAUTO 0 0 0 - - - - - = values in this interval not displayed. Recent Labs Component Name 04/30/19 0242 04/29/19 0644 02/15/19 0307 02/03/19 0106 09/06/17 1157 SODIUM 138 140 141 - 134* - - POTASSIUM 3.4* 3.6 3.7 - 4.3 - 3.8 CHLORIDE 105 107 106 - 101 - - CO2 26 23 28 - 25 - 20* BUN 24 30* 17 - - 21 CREATININE 1.00 1.14 1.02 - 1.22* - 0.7 GLUCOSE 101 102 98 - 112* - - CALCIUM 9.5 9.3 8.6 - 9.5 - 8.5 ALBUMIN 3.5 - - - 3.1* - - ALKPHOS 188* - - - 304* - 204* ALT 27 - - - 21 - 10 AST 30 - - - 20 - 21 TBIL 0.5 - - - 1.0 - - TPROT 6.9 - - - 7.0 - - EGFR >60 >60 >60 - 59 - >60 - = values in this interval not displayed. No results for input(s): MAGMGDL in the last 08990 hours. Recent Labs Component Name 09/19/17 0243 09/18/17 0003 09/17/17 0433 PHOS 2.5 2.8 3.2 Recent Labs Component Name 02/04/19 0617 COLORUA Yellow CLARITYUA Cloudy* SPECGRAVUA 1.021 PHUA 5.0 PROTEINUA Negative BLOODUA Negative LEUKOCYTEUA Negative NITRITEUA Negative GLUCOSEUA Negative KETONEUA Trace* BILIRUBINUA Negative UROBILINUA Negative Recent Labs Component Name 09/15/17 0441 09/11/17 0437 08/26/17 1420 BNP 694* 806* 552* Recent Labs Component Name 09/06/17 1157 08/26/17 1420 TROPONINI 0.027 <0.010 Recent Labs Component Name 02/03/19 0413 02/03/19 0106 02/02/19 2238 LACTICACID 0.7 0.8 0.9 Recent Labs Component Name 04/30/19 0242 02/15/19 0307 02/14/19 0346 02/04/19 0737 09/10/17 0549 09/07/17 0428 INR 1.1 1.9* 1.9* - 1.0 - - - 1.6 PT 13.9 18.9* 18.3* - 11.1 - - - 18.8* PTT - - - - 26.4 - 29.7 - 32.8 - = values in this interval not displayed. Recent Labs Component Name 02/03/19 0106 07/14/17 2212 HGBA1C 5.8 6.3 MEDICATIONS FOR CURRENT ENCOUNTER: ?? SCHEDULED MEDICATIONS: ?? albuterol (PROVENTIL;VENTOLIN) (5 MG/ML) 0.5% nebulizer solution 2.5 mg, Inhalation, 4X/day ?? budesonide-formoterol (SYMBICORT) 160-4.5 MCG/ACT inhaler 2 puff, Inhalation, BID ?? metoprolol succinate XL 24hr (TOPROL XL) tablet 50 mg, Oral, QDAY ?? rifAMPin (RIFADIN) capsule 300 mg, Oral, TID ?? tamsulosin (FLOMAX) capsule 0.4 mg, Oral, AT BEDTIME ?? tiotropium (SPIRIVA RESPIMAT) 2.5 MCG/ACT inhaler 2 puff, Inhalation, QDAY ?? vancomycin (VANCOCIN) IV dose per pharmacy, Does not apply, DIRECTED ?? vancomycin HCl (VANCOCIN) 1,250 mg in 0.9% NaCl 250 mL IVPB, Intravenous, q24h ?? [COMPLETED] potassium chloride ER (KLOR-CON M) tablet 40 mEq, Oral, Once ?? CONTINUOUS MEDICATIONS: ?? PRN MEDICATIONS: ?? acetaminophen (TYLENOL) tablet 650 mg, Oral, q4h PRN ?? acetaminophen (TYLENOL) tablet 650 mg, Oral, q6h PRN ?? diphenhydrAMINE (BENADRYL) capsule 25 mg, Oral, q6h PRN ?? fentaNYL (PF) (SUBLIMAZE) injection 25 mcg, Intravenous, q4h PRN ?? traMADol (ULTRAM) tablet 50 mg, Oral, q6h PRN Assessment and Plan # Right hip wound drainage, concerning for possible infection - ID and ortho to evaluate - empiric iv vanc and rifampin - wound vac to be placed today. Surgery in June ?? # COPD - cont home symbicort and spiriva - duonebs prn ?? # Atrial fibrillation - currently on metoprolol - holding eliquis. Restart in a ?? # VALENT[place] - bipap qhs DVT ppx: SCDs Code status: Full Disposition: HH in 1-2 days Due to medical issues in the assessment and plan, continued hospitalization will be required. Kev Ordonez MD Internal Medicine 04/30/2019 Feel free to text page me through [employer], login smsl [facility] MEDIA * Azeb Dye RN - 04/30/2019 3:06 PM CST Case Management Initial Assessment Case Management screen completed & Welcome Letter given. 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 Recurrent wound dehiscence with drainage. Poss sx. Basic Needs Assessment (BNA) Score: 9 Complex Needs Assessment (RADIO STATION MANAGER) Score: 10 Social Support Domain Score: 2 Medical Status and Health Trajectory Domain Score: 8 Medical Home and Access to Services Domain Score: 0 Recommended Interventions for Patient:: Etl Lead, Palliative Care, Physical Therapy, Occupational Therapy and Nutritional Services Comment: pt will need HHC order if to d/c home. Nutrition consulted. Awaiting POC to determine needs. Met with patient Lives with: Spouse Family Support (name and phone): Extended Emergency Contact Information Primary Emergency Contact: Trinity Keys Address: [address] [place] [address] [place] [address] [facility] Mobile Relation: Spouse Surface Water Manager needed? No Anticipated Discharge Date: 05/03/19 Prior Level of Functioning: Anticipated level of care at discharge: Comment: TBD Transportation at Discharge: Family Transportation to MD appointments:Family Equipment at Home: walker Additional equipment needed at home but does not have: TBD If no PCP, action taken: n/s Pharmacy benefit: Yes Etl Lead Referral: Not at this time If patient requires HHC at discharge, he/she requests: Pt's verified [facility] Will continue to follow. For any questions or needs please contact: Child Custody Evaluator Name/Phone number: Azeb Dye RN [phone] [facility] MEDIA * Raysa Nevarez MD - 04/30/2019 12:59 PM CST Infectious Diseases Consult Note Patient's Primary Care Physician: Briana Medeiros MD Reason for Consultation: Rt hip septic arthritis Referring Physcian: Kev Ordonez MD Name: José Miguel Keys Age: [age] year old 1 Hospital course Chart reviewed Patient sitting up in chair no pain No diarrhea No fevers chills Exam Vitals: 04/29/19 2313 04/30/19 0402 04/30/19 0737 04/30/19 0847 BP: 147/83 121/79 140/89 Pulse: 65 61 68 88 Resp: 18 18 20 20 Temp: 97.3 ??F (36.3 ??C) 96.9 ??F (36.1 ??C) 98.2 ??F (36.8 ??C) SpO2: 99% 99% 100% 99% Weight: Height: Temp (30hrs) Max:98.2 ??F (36.8 ??C) General appearance: alert, cooperative, no distress, cooperative, no distress, appears stated age, alert HEENT: ncat, vision intact/perrl, mmm/no lesion, neck supple/nt Lungs: clear to auscultation bilaterally Heart: regular rate and rhythm, S1, S2 normal, no murmur, click, rub or gallop, Abdomen: soft, non-tender; bowel sounds normal; no masses, no organomegaly Extremities: rt hip swelling pain, drainage Skin: no rash/lesion Lines: MEDICATIONS FOR CURRENT ENCOUNTER: SCHEDULED MEDICATIONS: albuterol (PROVENTIL;VENTOLIN) (5 MG/ML) 0.5% nebulizer solution 2.5 mg, Inhalation, 4X/day budesonide-formoterol (SYMBICORT) 160-4.5 MCG/ACT inhaler 2 puff, Inhalation, BID metoprolol succinate XL 24hr (TOPROL XL) tablet 50 mg, Oral, QDAY rifAMPin (RIFADIN) capsule 300 mg, Oral, TID tamsulosin (FLOMAX) capsule 0.4 mg, Oral, AT BEDTIME tiotropium (SPIRIVA RESPIMAT) 2.5 MCG/ACT inhaler 2 puff, Inhalation, QDAY vancomycin (VANCOCIN) IV dose per pharmacy, Does not apply, DIRECTED vancomycin HCl (VANCOCIN) 1,250 mg in 0.9% NaCl 250 mL IVPB, Intravenous, q24h ?? [COMPLETED] potassium chloride ER (KLOR-CON M) tablet 40 mEq, Oral, Once Data Recent Labs Component Name 04/30/1924102/15/1930602/14/19 0258 WBC 7.9 8.5 9.6 HGB 10.5* 7.4* 7.7* HCT 35.3 25.0* 26.0* PLTCOUNT 159 284 288 Recent Labs Component Name 04/30/19242 04/24/19 0644 02/15/19 0307 SODIUM 138 140 141 POTASSIUM 3.4* 3.6 3.7 CHLORIDE 105 107 106 CO2 26 23 28 BUN 24 30* 17 CREATININE 1.00 1.14 1.02 GLUCOSE 101 102 98 CALCIUM 9.5 9.3 8.6 Recent Labs Component Name 04/30/19 0242 02/03/19 0106 09/06/17 1157 ALBUMIN 3.5 3.1* - ALKPHOS 188* 304* 204* ALT 27 21 10 AST 30 20 21 TBIL 0.5 1.0 - TPROT 6.9 7.0 - No results for input(s): CDIFFTOXINAB in the last 30135 hours. Recent Labs Component Name 04/24/19 1141 SEDRATE 70* Recent Labs Component Name 04/24/19 1140 08/15/17 0348 08/09/17 0745 CRP 1.41* 4.1* 32.0* No results for input(s): CK in the last 05140 hours. .No results for input(s): VANCOTROUGH, VANCOPEAK, VANCSERIES in the last 88814 hours. 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 Alexander Please be advised that part of this text was done using voice recognition software. Errors may havebeen missed upon review. Raysa Nevarez MD [facility]OR MEDIA * Karina Slaughter RN - 04/30/2019 10:29 AM CST Problem: Infection Goal: Signs and symptoms of infections are decreased or avoided Outcome: Ongoing Antibiotics given as ordered Problem: Isolation Goal: Prevent Transmission of Infection Outcome: Ongoing PPE worn Problem: Pain/Discomfort Goal: Patient uses pharmacological and non-pharmacological pain management strategies. Outcome: Ongoing Pain medication given as needed CTOR MEDIA * Leah Franklin RCP - 04/30/2019 7:40 AM CST Mr Keys received his 0800, 1400 treatments; he remains on room air; will continue to monitor. Leah Franklin, Respiratory Care Practitioner 04/30/2019 1:58 PM CTOR MEDIA * Alberto De Los Santos MD - 04/30/2019 6:49 AM CST [facility] Orthopedic Surgery Daily Progress Note José Miguel Keys, 68 year old, male : 1950 CSN: [id number] Primary Care Physician: Briana Medeiros MD - Admission Date/Time: 04/29/2019 5:18 AM - Hospital Day: 1 Subjective Patient seen and examined this AM on rounds. No new problems or issues overnight. Pain controlled this morning. Vitals Temp (24hrs), Av.5 ??F (36.4 ??C), Min:96.9 ??F (36.1 ??C), Max:97.9 ??F (36.6 ??C) BP 121/79 Pulse 61 Temp 96.9 ??F (36.1 ??C) (Axillary) Resp 18 Ht 5' 11 (1.803 m) Wt 220 lb (99.8 kg) SpO2 99% BMI 30.68 kg/m2 Labs Recent Labs Component Name 04/30/19 0242 02/15/19 0307 02/14/19 0258 WBC 7.9 8.5 9.6 HGB 10.5* 7.4* 7.7* HCT 35.3 25.0* 26.0* PLTCOUNT 159 284 288 Recent Labs Component Name 04/30/19 0242 02/15/19 0307 02/14/19 0346 INR 1.1 1.9* 1.9* Cultures Microbiology Results (Displays last 21 days for this encounter ONLY) Procedure Component Value - Date/Time CULTURE MRSA [[id number]] Collected: 04/29/192140 Lab Status: In process Specimen: Micro from Rectum Updated: 04/29/192319 CULTURE VRE [[id number]] Collected: 04/29/192140 Lab Status: In process Specimen: Micro from Rectum Updated: 04/29/192319 CULTURE ABSCESS+GRAM STAIN [[id number]] Collected: 04/29/192140 Lab Status: Preliminary result Specimen: Micro from Hip Updated: 04/30/19627 Gram Stain Rare Polymorphonuclear cells No organisms seen CULTURE BLOOD [[id number]] Collected: 04/29/191908 Lab Status: In process Specimen: Blood Peripheral Updated: 04/29/191917 CULTURE BLOOD [[id number]] Collected: 04/29/191908 Lab Status: In process Specimen: Blood Peripheral Updated: 04/29/191917 CULTURE MRSA [[id number]] Collected: 04/29/191755 Lab Status: In process Specimen: Micro from Nasal Updated: 04/29/191755 Physical Exam General appearance: Awake, cooperative, no acute distress Right lower extremity: -Appearance: dressings with moderate saturation. Wound without erythema or palpable fluid collection. -Motor: Able to plantarflex ankle, able to dorsiflex ankle, able to plantarflex great toe, able to dorsiflex great toe -Sensation: SILT to dorsal and plantar foot -Vascular: 2+ DP pulse with toes warm and well perfused Assessment/Plan Active Problems: Infection of right prosthetic hip joint Patient is a 68 year old, male with incisional wound drainage, history of infected total hip arthroplasty s/p 02/08/19 right hip I&D, femoral head and poly exchange 1. Activity/Weight-bearing status: WBAT RLE 2. No plan for operative intervention today. Tentative plan for possible I&D, implant explantation and antibiotic spacer placement on Tuesday. Risks benefits and alternatives discussed with patient and including application of a wound vac and antibiotic suppression. Patient and demonstrated understanding and will consider their options. If they elect to proceed with wound vac therapy, he will need home wound vac therapy set up with home health. 3. Anticoagulation Status: per primary 4. Antibiotics: per ID recs 5. Wound care: Change dressings prn 6. Diet: regular 7. PT/OT 8. Pain Control 9. Orthopedics will continue to follow. Please page with any questions or concerns Alberto De Los Santos MD 04/30/2019 6:49 AM CTOR MEDIA * Chris Carter RN - 04/30/2019 12:01 AM CST A&Ox4. C/o R hip pain with prn tylenol for management. Pt prefer not to take narcotic d/t constipation side effect. Pain well controlled with tylenol. Wound cx swabbed and sent. Dressing with small serous drainage and new dressing applied. Voiding per urinal overnight. Ambulates with walker, CGA/SBA. Worn home bipap/cpap overnight. NPO since midnight. IV infiltrated and new iv re- accessed. Ptis resting in bed with call light within reach. Vitals: 04/29/19 2104 04/29/19 2313 04/30/19 0402 04/30/19 0737 BP: 122/70 147/83 121/79 Pulse: 81 65 61 68 Resp: 18 18 18 20 Temp: 97.8 ??F (36.6 ??C) 97.3 ??F (36.3 ??C) 96.9 ??F (36.1 ??C) SpO2: 99% 99% 99% 100% Weight: Height: Chris Carter RN 04/30/2019 7:55 AM CTOR MEDIA * Chris Carter RN - 04/30/2019 12:01 AM CST Problem: Low Fall Risk (Score 7-10) Goal: Patient will remain as independent as possible. Outcome: Ongoing Problem: Infection Goal: Signs and symptoms of infections are decreased or avoided Outcome: Ongoing Problem: Isolation Goal: Prevent Transmission of Infection Outcome: Ongoing CTOR MEDIA * Oziel De Los Santos RN - 04/29/2019 5:19 PM CST Shift Summary: Pt alert and oriented VSS Tolerating diet Pt ambulates with walker to bathroom or uses urinal at bedside Dressing placed on Right hip per request of Pt bc of the discharge IV antibiotics infusing per orders Pt NPO at midnight Pt resting in chair Call light within reach Continue to monitor CTOR MEDIA * Cheryl Mccoy PharmD - 04/29/2019 1:17 PM CST Vancomycin Per Pharmacy (Day 1) 68 year old male receiving vancomycin for the management of h/o MRSA hip abscess. Vitals: Height: 5' 11 (180.3 cm) (04/29/19525) Weight: 99.8 kg (220 lb) (04/29/19525) Temp (24hrs) Max:98.2 ??F (36.8 ??C) Current Labs: Recent Labs Component Name 04/29/19 0644 02/15/19 0307 02/14/19 0346 02/14/19 0258 02/13/19 0440 BUN 30* 17 18 - 17 CREATININE 1.14 1.02 1.10 - 0.97 WBC - 8.5 - 9.6 8.9 Renal Function: Estimated Creatinine Clearance: 72.6 mL/min (based on SCr of 1.14 mg/dL). Cultures: none Dosing Calculations: Loading Dose - 25 mg/kg (rounded to the nearest 250 mg--Max 2500 mg): none Maintenance Dose - 15 mg/kg (rounded to the nearest 250 mg--Max 1750 mg): 1250 mg Interval (based on age and renal function): every 24 hours Goal (based on indication): 15-20 mcg/ml A/P Patient transferred from [facility] where he received Vancomycin 1 gm IV 04/28 2322. No SNF records in chart - unclear at this time if patient was on vancomycin at facility (possibly on doxycycline). Randomlevel drawn on admission was 10.5 mcg/ml but unknown if this is from the one dose at OSH or anotherregimen. Patient has previously been on Vancomycin 1250 mg IV q24h with therapeutic levels. This regimen was restarted. Will check a trough level 05/01 and adjust regimen as appropriate. Pharmacy will continue to adjust and monitor. Cheryl Mccoy PharmD 04/29/2019 1:18 PM CTOR MEDIA * Hoa Poe - 04/29/2019 6:56 AM CST Problem: Low Fall Risk (Score 7-10) Goal: Patient will remain as independent as possible. 04/29/2019655 by Hoa Poe RN Outcome: Ongoing 04/29/2019642 by Hoa Poe RN Outcome: Ongoing Goal: Patient will have lower fall risk. 04/29/2019655 by Hoa Poe RN Outcome: Ongoing 04/29/2019642 by Hoa Poe RN Outcome: Ongoing Goal: Patient will have lower injury risk. 04/29/2019655 by Hoa Poe RN Outcome: Ongoing 04/29/201943 by Hoa Poe RN Outcome: Ongoing Goal: Patient will remain safe from falls and injury. 04/29/2019655 by Hoa Poe RN Outcome: Ongoing 04/29/201943 by Hoa Poe RN Outcome: Ongoing Problem: Infection Goal: Signs and symptoms of infections are decreased or avoided 04/29/2019655 by Hoa Poe RN Outcome: Ongoing 04/29/2019642 by Hoa Poe RN Outcome: Ongoing Problem: Isolation Goal: Prevent Transmission of Infection 04/29/2019655 by Hoa Poe RN Outcome: Ongoing 04/29/2019642 by Hoa Poe RN Outcome: Ongoing CTOR MEDIA * Hoa Poe - 04/29/2019 6:56 AM CST Problem: Isolation Goal: Prevent Transmission of Infection 04/29/2019 0656 by Hoa Poe RN Outcome: Ongoing 04/29/2019 0656 by Hoa Poe RN Outcome: Ongoing 04/29/2019 0643 by Hoa Poe RN Outcome: Ongoing CTOR MEDIA * Hoa Poe - 04/29/2019 6:44 AM CST Patient presents AxO 3-4 able to make needs known to staff. Ambulates with walker on a normal bases; however uses a wheelchair for longer distances per . Direct admit from [place] to [facility] due to the suspicion of sepsis of right hip arthroplasty. Dr. Oh admitting provider;orders placed. Vitals assessed and documented. Original surgery performed 2005. Recent I/D 02/04 AND 02/08 at the [facility]. reports that while helping to change she notices that the gauze in place was saturated and running down his leg. The area was also warm to the touch; it was then that they decided to head to the hospital. 1 gram of Vanc was administered at outside facility. Report called to nurse from [facility] [phone]. Allergy documented, fall precautions in place. Patient and orientated to use of call light system and utilizing call light for assistance. present during admission and during shift. Blood pressure 148/91, pulse 81, temperature 98.2 ??F (36.8 ??C), temperature source Oral, resp. rate 18, height 1.803 m (5' 11 ), weight 99.8 kg (220 lb), SpO2 97 %. Patient remains afebrile, no verbalization of pain or distress. PMH RAYGOZA, CIRRHOSIS, DM2, CAD DVT AFIB. Lungs clear, bowel sounds active, patient continent of bowel and bladder. No edema present in upper and lower extremities, pulses 2/2, room air. Prior status wbat RLE. Patient also uses a BIPAP at night; will bring his personal system to the hospital. Admission completed both patient and informed to send valuable home to include cellphone and airborne operations manager that the ministry recommends to send valuable to security due to not being able to monitor items throughout his stay. Both verbalized understanding. CTOR MEDIA * Hoa Poe - 04/29/2019 6:43 AM CST Problem: Low Fall Risk (Score 7-10) Goal: Patient will remain as independent as possible. Outcome: Ongoing Goal: Patient will have lower fall risk. Outcome: Ongoing Goal: Patient will have lower injury risk. Outcome: Ongoing Goal: Patient will remain safe from falls and injury. Outcome: Ongoing Problem: Infection Goal: Signs and symptoms of infections are decreased or avoided Outcome: Ongoing Problem: Isolation Goal: Prevent Transmission of Infection Outcome: Ongoing CTOR MEDIA documented in this encounter H&P Notes * Dwayne Nichols APRN-GUEST ATTENDANT - 04/29/2019 5:49 AM CST H&P for Dr. [facility] Dipak Nichols BENCH ASSEMBLY INSPECTOR- TRAILER RENTAL CLERK HPI 68 yo male with a history of CAD, atrial fibrillation, COPD, cirrhosis, VALENTINA and complex history of MRSA bacteremia and epidural abscess in 2018.He has a history of right total hip arthoplasty in 2005. He was admitted on 02/02 with a week of right hip pain; CT revealed a right hip abscess for which he underwent I/D by orthopaedics on 02/04 and 02/08. Cultures grew MRSA. The patient has been on vancomycin. ID consulted; recommending vancomycin and rifampin through 04/01 following by chronic suppression with doxycycline 100 mg BID for at least 6 month which she is still continuing. He was last seen by Infectious Diseases specialty on the of this month. For the past few days spouse has been noticing pinkish drainage out of the surgical incision that was of concern that they called his primary care physician and made arrangements to come here as a direct admit. Orthopedic services and Infectious Diseases specialty have been consulted and we initiated him on empiric IV vancomycin. We are in the process of obtaining his basic labs and will await Orthopedics and Infectious Diseases input. Past Medical History: Diagnosis Date ??? Actinic [...] (methicillin resistant staph aureus) culture positive 07/29/2017; 02/04/19 07/29/17-Disc- tissue culture MRSA; R hip ??? Obstructive sleep apnea ??? VALENTINA (obstructive sleep apnea) ??? Other cirrhosis of liver ??? Peripheral neuropathy ??? Psoriasis ??? S/P PICC central line placement 02/13/2019 H VAT R basilic ??? Seizures ??? Squamous cell carcinoma Past Surgical History: Procedure Laterality Date ??? Cataract Removal Bilateral ??? ENDOSCOPY, UPPER N/A 09/15/2017 N/A; ESOPHAGOGASTRODUODENOSCOPY (EGD) DIAGNOSTIC ??? EXCISION BURSA Right 02/08/2019 Right; EXCISION BURSA (BURSECTOMY) TROCHANTERIC/HIP ??? GENERAL SURGERY PROCEDURE Right 02/04/2019 Right; PLACEMENT WOUND VAC ??? HIP ARTHROPLASTY, REVISION Right 02/08/2019 Right; REVISION HIP ARTHROPLASTY BOTH COMPONENT ??? HX JOINT REPLACEMENT ??? HX JOINT REPLACEMENT right hip 2005, left hip 2008 ??? INCISION AND DRAINAGE Right 02/04/2019 Right; IRRIGATION AND DEBRIDEMENT WOUND HIP ??? Tracheostomy N/A 09/13/2017 N/A; TRACHEOSTOMY Family History Problem Relation Age of Onset ??? Coronary Artery Disease Mother age 65 ??? Cirrhosis Father ??? Cancer - Breast Neg Hx ??? CVA Neg Hx ??? Hemophilia Neg Hx ??? Cancer - Other Neg Hx ??? Eczema Neg Hx ??? Psoriasis Neg Hx ??? Cancer - Skin, Non Melanoma Neg Hx ??? Cancer - Skin, Melanoma Neg Hx Social History Socioeconomic History ??? Marital status: Spouse name: Not on file ??? Number of children: Not on file ??? Years of education: Not on file ??? Highest education level: Not on file Occupational History ??? Not on file Social Needs ??? Financial resource strain: Not on file ??? Food insecurity: Worry: Not on file Inability: Not on file ??? Transportation needs: Medical: Not on file Non-medical: Not on file Tobacco Use ??? Smoking status: Former Smoker Last attempt to quit: 06/06/1981 Years since quittin.9 ??? Smokeless tobacco: Never Used Substance and Sexual Activity ??? Alcohol use: No ??? Drug use: No ??? Sexual activity: Not on file Lifestyle ??? Physical activity: Days per week: Not on file Minutes per session: Not on file ??? Stress: Not on file Relationships ??? Social connections: Talks on phone: Not on file Gets together: Not on file Attends spiritism service: Not on file Active member of club or organization: Not on file Attends meetings of clubs or organizations: Not on file Relationship status: Not on file ??? Intimate partner violence: Fear of current or ex partner: Not on file Emotionally abused: Not on file Physically abused: Not on file Forced sexual activity: Not on file Other Topics Concern ??? Not on file Social History Narrative Merged History Encounter [place] war Penicillins; Levaquin [levofloxacin]; and Scopace [scopolamine] Medications Prior to Admission Medication Sig Dispense [...] by mouth once daily ??? nystatin (NYSTOP) 262479 UNIT/GM powder Apply to affected area 2 times daily as needed Apply togroin area twice a day as needed. ??? omeprazole (PRILOSEC) 40 MG capsule Take 40 mg by mouth daily before breakfast ??? polyethylene glycol 3350 (MIRALAX) packet Take [...] as needed. ??? vitamin D, ergocalciferol, (DRISDOL) 16580 UNITS capsule Take 50,000 Units by mouth every 7 days 0 Review of Systems (All positive symptoms highlighted ) Gen: wt loss, fever, chills, night sweats, dizziness, fatigue, weakness Skin: skin/hair/nail changes, rash, ulcers or bites. Head: headaches, trauma, vertigo, syncope, Eyes: , diplopia, vision change , , discharge ,pain Ears:, tinnitus, discharge from the ears, pain, Nose: , rhinitis, sinusitis, discharge,, epistaxis Throat: hoarseness, sore throats, tonsillitis, Mouth: soreness of mouth or tongue, dental caries, gum disease Neck: swelling, , enlargement of lymph nodes, , stiffness, Pain Pulm: Pain, SOB, wheezing, dyspnea, orthopnea, cough, sputum, hemoptysis, , asthma CV: Palpitations, palpitations, pain in chest, exertional dyspnea, orthopnea, cyanosis, GI: Appetite changes, , changes in weight, dysphagia, nausea, abdominal pain, vomiting, diarrhea constipation, jaundice, blood in stool : , polyuria, nocturia, dysuria, hematuri, urinary retention, urinary frequency, incontinence, passage of stones CRIMPER ASSEMBLER: Cranial: disturbances of smell, visual disturbances, facial weakness, taste disturbances , hearing/equilibrium disturbances, difficulties in speech, swallowing, Motor: paralysis, atrophy, gait, incoordination, tremors Sensory: pain, parasthesia Autonomic: control of urination and defecation, sweating, erythema, cyanosis, pallor, reaction to heat and cold Psych: difficulties with interpersonal relationships, impulse control, Mood swings, difficulty withconcentration, Hemopoeitic: anemia, lymphadenopathy, bleeding or clotting Endocrine: intolerance to heat or cold, skin pigmentation, hair distribution, goiter, exophthalmos,dryness of skin or hair, , 3 P's, glycosuria, Allergic and Immunologic: dermatitis, urticaria, angioedema, eczema, hay fever, vasomotor rhinitis,asthma, Musculoskeletal: fractures, dislocations, sprains, arthritis, myositis, pain, swelling, stiffness, wasting, atrophy Right hip surgical incision with mild erythema and dehiscence. PHYSICAL EXAM Vitals: 04/29/19 0502 04/29/19 0526 BP: 148/91 Pulse: 81 Resp: 18 Temp: 98.2 ??F (36.8 ??C) SpO2: 97% Weight: 220 lb Height: 5' 11 General: In no apparent distress Skin:No rashes or ulceration, no clubbing or cyanosis Head:Normocephalic, atraumatic Eyes:sclera anicteric, conjuctiva clear, EOMI, PERRLA ENT: Hearing grossly intact, oropharynx pink and moist, no pharyngeal erythema or exudates Neck: No JVD, no carotid bruits, no adenopathy. Heart: Regular rate and rhythm, normal S1 S2, no rubs, click or murmur . Lungs:Symetrical expansion with respirations, unlabored respirations, clear breath sounds anteriorly and posteriorly. No spinal or CVA tenderness. Abdomen: Flat, bowel sounds present, non-tender, no masses or guarding, no appreciable organomegalyto palpation or percussion. No abdominal bruits. Musculoskeletal:no joint pain on movement, no swelling or erythema of joints. Normal ROM, stregth 5/5 upper and lower extremeties bilaterally. Neuro:A&O X3, cranial nerves II-XII grossly intact. No focal deficits.. Review of pertinent laboratory data: Recent Labs Component Name 02/15/19 0307 02/14/19 0258 02/13/19 0440 WBC 8.5 9.6 8.9 HGB 7.4* 7.7* 7.6* HCT 25.0* 26.0* 25.1* PLTCOUNT 284 288 287 Recent Labs Component Name 02/15/19 0307 02/03/19 0106 SODIUM 141 - 134* POTASSIUM 3.7 - 4.3 CHLORIDE 106 - 101 CO2 28 - 25 BUN 17 - 19 CREATININE 1.02 - 1.22* GLUCOSE 98 - 112* CALCIUM 8.6 - 9.5 ALBUMIN - - 3.1* ALKPHOS - - 304* ALT - - 21 AST - - 20 TBIL - - 1.0 TPROT - - 7.0 EGFR >60 - 59 - = values in this interval not displayed. Recent Labs Component Name 02/04/19 0617 08/26/17 1420 COLORUA Yellow - SPECGRAVUA 1.021 - PHUA 5.0 6.0 PROTEINUA Negative - BLOODUA Negative - LEUKOCYTEUA Negative - NITRITEUA Negative - GLUCOSEUA Negative - KETONEUA Trace* - BILIRUBINUA Negative - UROBILINUA Negative <2.0 RBCUA - 1 Recent Labs Component Name 09/15/17 0441 09/11/17 0437 08/26/17 1420 BNP 694* 806* 552* No results for input(s): TROPPOCT in the last 57855 hours. No results for input(s): TROPONIN in the last 36848 hours. No results for input(s): BNPPOCT in the last 18136 hours. No results for input(s): CKMBPOCT in the last 05607 hours. No results for input(s): CKMB in the last 33851 hours. No orders to display ASSESSMENT/PLAN Right hip wound dehiscence -- constant oozing of pinkish drainage. -- empiric IV antibiotics -- orthopedics consulted -- ID consulted COPD -- nebulizers as needed -- no wheezing on exam -- continue Symbicort and Spiriva Atrial fibrillation -- on metoprolol -- Eliquis VALENTINA -- continue with BiPAP at hs. The patient is admitted with a diagnosis or diagnoses of right hip wound dehiscence and current medical needs include Orthopedics and Infectious Diseases consultation. The patient has the following complex medical factors: COPD, atrial fibrillation, obstructive sleep apnea right hip wound Discussed with Dr. Ordonez Further management of the patient will be guided by the work up described above. CTOR MEDIA Associated attestation - Kev Ordonez MD - 04/29/2019 4:55 PM DIRECTOR MEDIA [facility] History and Physical I have personally seen and examined this patient and discussed the case with the nurse practitioner's. I confirm/revise the nurse practitioner's documentation as noted below. Chief Complaint: No chief complaint on file. History of Present Illness: José Miguel Keys is a 68 yo male with a history of CAD, atrial fibrillation, COPD, cirrhosis, VALENTINA and complex history of MRSA bacteremia and epidural abscess in 2018.He has a history of righttotal hip arthoplasty in 2006. He was admitted on 02/02 with a week of right hip pain; CT revealed aright hip abscess for which he underwent I/D by orthopaedics on 02/04 and 02/08. Cultures grew MRSA. The patient has been on vancomycin. ID consulted; recommending vancomycin and rifampin through 04/01 following by chronic suppression with doxycycline 100 mg BID for at least 6 month which she is still continuing. Pt resting comfortably in chair. Complaining of R hip wound dehiscence/drainage. Stated that this began earlier this week after seeing ID outpatient. Denied any fevers, chills, nausea, vomiting, sob,chest pain, abdominal pain. ROS: Reviewed, as per nurse practitioner's note All other systems are negative. PMHx/PSHx/Social Hx: As in nurse practitioner's note. Family History Family History Problem Relation Age of Onset Coronary Artery Disease Mother age 65 Cirrhosis Father Cancer - Breast Neg Hx CVA Neg Hx Hemophilia Neg Hx Cancer - Other Neg Hx Eczema Neg Hx Psoriasis Neg Hx Cancer - Skin, Non Melanoma Neg Hx Cancer - Skin, Melanoma Neg Hx Physical Examination: BP 134/76 Pulse 82 Temp 97.5 ??F (36.4 ??C) (Oral) Resp 24 Ht 5' 11 Wt 220 lb SpO2 99% BMI 30.68 kg/m2 GEN: in NAD HEENT:NCAT, EOMI, MMM RESP: Clear to auscultation bilaterally CARDIO: Regular rate and rhythm, Nl S1 and S2 No gallops. GI: Abdomen soft and non tender, non-distended, +BS, no organomegaly EXT: No edema. MSK: Moves all extremities NEURO: A+Ox3, no focal deficits SKIN: serosanguinous drainage from right hip wound Labs reviewed Imaging reviewed Assessment/Plan: # Right hip wound drainage, concerning for possible infection - ID and ortho to evaluate - empiric iv abx # COPD - cont home symbicort and spiriva - duonebs prn # Atrial fibrillation - currently on metoprolol - holding eliquis in case of possible intervention # VALENTINA - bipap qhs Patient seen at 1430. Kev Ordonez MD Internal Medicine 04/29/2019 Feel free to text page me through [employer]one[employer], login smsl documented in this encounter Consult Notes * Anika De León LPN - 05/06/2019 12:26 PM CSTAssociated Order(s): IP CONSULT TO HOME HEALTH CARE Home health referral received. Per patient he is currently open with [facility]. H&P, Wound orders faxed to [facility] at this time. Thanks, ANIKA DE LEÓN LPN [facility] [place] [phone] After 4:30 or over the weekend call [phone] option 1 CTOR MEDIA * Lana Narayanan, ASHWINI/SALVADOR - 04/30/2019 11:01 AM CSTAssociated Order(s): IP CONSULT TO NUTRITIONAL SERV CLINICAL NUTRITION ASSESSMENT Assessment: Pt seen 2/2 to consult received for wounds. Pt resting in bed at time of visit. Pt states appetite is good and is eating well. Per po record pt is eating on average 100% at meal time. Pt unsure of any wt change. Per EHR wt is up by 8# since 08/22. Pt denies any trouble chewing or swallowing. No GI issues noted. Last bm 04/28. Labs reviewed low potassium levels. Noted pt on potassium chloride. Education was provided on nutrition and wound healing. Discussed protein, vitamin A and vitamin C food sources to include at meal times.. Discussed the benefit of Oral Nutrition Supplements (ONS) to aid with meeting calorie and protein needs to aid wound healing. Pt requested for Ensure HP BID.Pt states he was receiving it when he was admitted previously.Ensure High Protein for Muscle Health provides 160 calories ,16 grams protein and 19 grams of carb per 8 oz serving. SSM handout was provided and pt was encouraged to call concerning questions. Send when diet is advanced. Pt had no other questions or concerns at this time. Will continue to monitor pt at moderate nutrition risk. Med/Surg History and Clinical Diagnoses: rt wound dehiscence hx:CAD,Afib,COPD,Cirrhosis,VALENTINA,MRSA Height: 5' 11 (180.3 cm) Wt Readings from Last 5 Encounters: 04/29/19 220 lb (99.8 kg) 02/27/19 220 lb 4.8 oz (99.9 kg) 02/15/19 229 lb 3.2 oz (104 kg) 08/17/18 212 lb (96.2 kg) 02/15/18 195 lb (88.5 kg) IBW: 172# 127% IBW BMI: Body mass index is 30.68 kg/m??. BMI Range: Obese Class 1 UBW: Usual weight/lb: unsure Unintentional weight change: per EHR wt is up by 8# since 08/22 Current diet order: NPO Food Allergies: No known food allergies P.O.Intake for the past 48 hrs: % Meal Taken Av % Min: 100 % Max: 100 % % Oral Supplement Intake: No data recorded GI Concerns: None Chewing/Swallowing: None Estimated Needs: KCAL: 1996kcal(20kcal/kg of bw) Protein (g): 99-119gm(1-1.2gm/kg of bw) Fluid (ml): 1 ml/kcal Needs based on: Kcal/kg- (Comment) Recommended Access Route: PO Labs: Recent Labs Component Name 04/30/19 0242 SODIUM 138 POTASSIUM 3.4* CHLORIDE 105 CO2 26 BUN 24 CREATININE 1.00 GLUCOSE 101 CALCIUM 9.5 ALBUMIN 3.5 ALKPHOS 188* ALT 27 AST 30 TBIL 0.5 TPROT 6.9 EGFR >60 Recent Labs Component Name 09/19/17 0243 09/18/17 0003 09/17/17 0433 PHOS 2.5 2.8 3.2 Recent Labs Component Name 02/03/19 0106 07/14/17 2212 HGBA1C 5.8 6.3 No results for input(s): PREALBUMIN in the last 66836 hours. No data found. PERTINENT MEDICATIONS FOR CURRENT ENCOUNTER: ?? SCHEDULED MEDICATIONS: ?? albuterol (PROVENTIL;VENTOLIN) (5 MG/ML) 0.5% nebulizer solution 2.5 mg, Inhalation, 4X/day ?? budesonide-formoterol (SYMBICORT) 160-4.5 MCG/ACT inhaler 2 puff, Inhalation, BID ?? metoprolol succinate XL 24hr (TOPROL XL) tablet 50 mg, Oral, QDAY ?? rifAMPin (RIFADIN) capsule 300 mg, Oral, TID ?? tamsulosin (FLOMAX) capsule 0.4 mg, Oral, AT BEDTIME ?? tiotropium (SPIRIVA RESPIMAT) 2.5 MCG/ACT inhaler 2 puff, Inhalation, QDAY ?? vancomycin (VANCOCIN) IV dose per pharmacy, Does not apply, DIRECTED ?? vancomycin HCl (VANCOCIN) 1,250 mg in 0.9% NaCl 250 mL IVPB, Intravenous, q24h ?? [COMPLETED] potassium chloride ER (KLOR-CON M) tablet 40 mEq, Oral, Once ?? CONTINUOUS MEDICATIONS: Skin/Wound: exceptions Last BM: 04/28 Nutrition Care Process (1) Nutrition Diagnostic Statement: Increased nutrient needs related to:: increased demands for wound healing as evidenced by:: delayed wound healing Nutrition Intervention: Meals and snacks:;Medical Food Supplements:;Nutrition Education - Content Education needed: Wound Healing Education provided Pt was educated on Education was provided on nutrition and wound healing. Discussed protein, vitamin A and vitamin C food sources to include at meal times. Reviewed importance of good BG control. Discussed the benefit of Oral Nutrition Supplements (ONS) to aid with meeting calorie and protein needsto aid wound healing. Expected level of compliance: Good Following at moderate nutritional risk. Nutrition recommendation: agree with current nutrition order ?? Added Ensure HP BID, send when diet is advanced. Ensure High Protein for Muscle Health provides 160 calories ,16 grams protein and 19 grams of carb per 8 oz serving. Monitoring: ?? PO/Nutrition supplement intake ?? Labs ?? BM ?? Weight ?? Skin Evaluation: Nutrition Goal: Total intake will meet estimated nutrient needs Nutrition Goal Timeframe: Ongoing AICHA Barrera 04/30/2019 11:21 AM Ascom [id number] CTOR MEDIA * Armida Gomez MD - 04/29/2019 6:40 PM CSTAssociated Order(s): IP CONSULT TO INFECTIOUS DISEASES Infectious Diseases Consult Note Patient's Primary Care Physician: Briana Medeiros MD Reason for Consultation: Rt hip septic arthritis Referring Physcian: Kev Ordonez MD Name: José Miguel Keys Age: [age] year old 0 Chief Complaint/History of Present Illness HPI: José Miguel Keys is a 68 year old White/Caucasianmale with afib, cad, copd, cirrhosis, left THR,h/o MRSA sepsis treated at [facility] in 2018, complicated with epidural abscess S/P I /D with cage. He was in a [facility] several months. Hx of rt hip arthroplasty in 2005 with rt septic hip S/p I andD on 02/04 and 02/08 with femoral head and poly exchange with cx+mrsa completed vanc, rifampin on and placed on chronic oral doxy . Last seen Dr Nevarez on 04/24/19 and continued doxy. readmitted on 04/29/19 with rt hip pain and drainage so ID consulted. orthoconsulted. Objective: Review of Systems General: no fatigue/fever/chills Skin: no rashes/lesions Eyes: no vision problems/no conjunctival lesions HENT: no oral lesion/no hearing problems Respiratory: no cough/sob Cardiovascular: no cp/palpitations Gastrointestinal: no nausea/diarrhea Genitourinary: no dysuria/hematuria Musculoskeletal: see hpi Neurological: no bailey/seizures Psych: no depression/anxiety Past Medical History: Diagnosis Date ??? Actinic [...] (methicillin resistant staph aureus) culture positive 07/29/2017; 02/04/19 07/29/17-Disc- tissue culture MRSA; R hip ??? Obstructive sleep apnea ??? VALENTINA (obstructive sleep apnea) ??? Other cirrhosis of liver ??? Peripheral neuropathy ??? Psoriasis ??? S/P PICC central line placement 02/13/2019 H VAT R basilic ??? Seizures ??? Squamous cell carcinoma Past Surgical History: Procedure Laterality Date ??? Cataract Removal Bilateral ??? ENDOSCOPY, UPPER N/A 09/15/2017 N/A; ESOPHAGOGASTRODUODENOSCOPY (EGD) DIAGNOSTIC ??? EXCISION BURSA Right 02/08/2019 Right; EXCISION BURSA (BURSECTOMY) TROCHANTERIC/HIP ??? GENERAL SURGERY PROCEDURE Right 02/04/2019 Right; PLACEMENT WOUND VAC ??? HIP ARTHROPLASTY, REVISION Right 02/08/2019 Right; REVISION HIP ARTHROPLASTY BOTH COMPONENT ??? HX JOINT REPLACEMENT ??? HX JOINT REPLACEMENT right hip 2006, left hip 2009 ??? INCISION AND DRAINAGE Right 02/04/2019 Right; IRRIGATION AND DEBRIDEMENT WOUND HIP ??? Tracheostomy N/A 09/13/2017 N/A; TRACHEOSTOMY Social History Tobacco Use ??? Smoking status: Former Smoker Last attempt to quit: 06/06/1981 Years since quittin.9 ??? Smokeless tobacco: Never Used Substance Use Topics ??? Alcohol use: No ??? Drug use: No Family History Problem Relation Age of Onset ??? Coronary Artery Disease [...] puffy, itchy ??? Scopace [Scopolamine] Other and [employer] Dysfunction delirium Exam Vitals: 04/29/19 0526 04/29/19 0750 04/29/19 0836 04/29/19 1702 BP: 134/76 136/74 Pulse: 75 82 78 Resp: 20 24 20 Temp: 97.5 ??F (36.4 ??C) 97.9 ??F (36.6 ??C) SpO2: 97% 99% 99% Weight: 220 lb Height: 5' 11 Temp (30hrs) Max:98.2 ??F (36.8 ??C) General appearance: alert, cooperative, no distress, cooperative, no distress, appears stated age, alert HEENT: ncat, vision intact/perrl, mmm/no lesion, neck supple/nt Lungs: clear to auscultation bilaterally Heart: regular rate and rhythm, S1, S2 normal, no murmur, click, rub or gallop, Abdomen: soft, non-tender; bowel sounds normal; no masses, no organomegaly Extremities: rt hip swelling pain, drainage Skin: no rash/lesion Lines: MEDICATIONS FOR CURRENT ENCOUNTER: ?? SCHEDULED MEDICATIONS: ?? albuterol (PROVENTIL;VENTOLIN) (5 MG/ML) 0.5% nebulizer solution 2.5 mg, Inhalation, 4X/day ?? budesonide-formoterol (SYMBICORT) 160-4.5 MCG/ACT inhaler 2 puff, Inhalation, BID ?? metoprolol succinate XL 24hr (TOPROL XL) tablet 50 mg, Oral, QDAY ?? tamsulosin (FLOMAX) capsule 0.4 mg, Oral, AT BEDTIME ?? tiotropium (SPIRIVA RESPIMAT) 2.5 MCG/ACT inhaler 2 puff, Inhalation, QDAY ?? vancomycin (VANCOCIN) IV dose per pharmacy, Does not apply, DIRECTED ?? vancomycin HCl (VANCOCIN) 1,250 mg in 0.9% NaCl 250 mL IVPB, Intravenous, q24h Data Recent Labs Component Name 02/15/19 0307 02/14/19 0258 02/13/19 0440 WBC 8.5 9.6 8.9 HGB 7.4* 7.7* 7.6* HCT 25.0* 26.0* 25.1* PLTCOUNT 284 288 287 Recent Labs Component Name 04/29/19 0644 02/15/19 0307 02/14/19 0346 SODIUM 140 141 141 POTASSIUM 3.6 3.7 3.7 CHLORIDE 107 106 108* CO2 23 28 28 BUN 30* 17 18 CREATININE 1.14 1.02 1.10 GLUCOSE 102 98 113* CALCIUM 9.3 8.6 8.4 Recent Labs Component Name 02/03/19 0106 09/06/17 1157 09/04/17 0447 ALBUMIN 3.1* - - ALKPHOS 304* 204* 190* ALT 21 10 12 AST 20 21 27 TBIL 1.0 - - TPROT 7.0 - - No results for input(s): CDIFFTOXINAB in the last 56191 hours. Recent Labs Component Name 04/24/19 1141 SEDRATE 70* Recent Labs Component Name 04/24/19 1140 08/15/17 0348 08/09/17 0745 CRP 1.41* 4.1* 32.0* No results for input(s): CK in the last 26231 hours. .No results for input(s): VANCOTROUGH, VANCOPEAK, VANCSERIES in the last 68753 hours. 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 - will continue on vanc based on prior cx and will add rifampin with hardware - monitor labs - consider bcx Armida Gomez MD CTOR MEDIA * Alberto De Los Santos MD - 04/29/2019 8:12 AM CST [facility] Orthopedic Surgery Consultation Note José Miguel Keys, 68 year old, male : 1950 CSN: [id number] Primary Care Physician: Briana Medeiros MD Chief Complaint No chief complaint on file. Admission Date/Time: 04/29/2019 5:18 AM Today's Date/Time: 04/29/2019 8:12 AM HPI Consulting Service: medicine [facility] Orthopedic Surgery consulted for evaluation/management of: wound drainage José Miguel Keys is a 68 year old male with history of infected right total hip arthroplasty from 2005 who underwent multiple I&Ds in february with the latest including femoral head and poly exchange performed by Dr. Alexander on 02/08/19. He has been followed as an outpatient by Dr. Maddox of infectious disease who last saw him in clinic 5 days ago. He has been on doxycycline suppressive antibiotic therapy. He presented to an OSH yesterday with new wound drainage. Transferred to [facility] for higher level of care. He is accompanied by his who states that the wound healed well after surgery butover the last few days became increasingly erythematous and puffy. The wound drainage was minimal at first but now has increased and required multiple daily dressing changes. The patient endorses increased tenderness superficially but denies deep pain similar to what he experienced with previous infection. He denies recent fevers, chills, malaise, or other systemic symptoms. He has been ambulating with a walker. No other complaints or issues at this time. Vitals Blood pressure 134/76, pulse 75, temperature 97.5 ??F (36.4 ??C), temperature source Oral, resp. rate 20, height 5' 11 (1.803 m), weight 220 lb (99.8 kg), SpO2 97 %. Labs Lab results smartLinks are not currently available Lab results smartLinks are not currently available Lab Results Component Value Date/Time WBC 8.5 02/15/2019 03:07 AM HGB 7.4 (L) 02/15/2019 03:07 AM HCT 25.0 (L) 02/15/2019 03:07 AM Recent Labs Component Name 04/24/19 1140 08/15/17 0348 ESR - - 55* CRP 1.41* - - - = values in this interval not displayed. PMHx Past Medical History: Diagnosis Date ??? [...] (methicillin resistant staph aureus) culture positive 07/29/2017; 02/04/19 07/29/17-Disc- tissue culture MRSA; R hip ??? Obstructive sleep apnea ??? VALENTINA (obstructive sleep apnea) ??? Other cirrhosis of liver ??? Peripheral neuropathy ??? Psoriasis ??? S/P PICC central line placement 02/13/2019 [facility] VAT R basilic ??? Seizures ??? Squamous cell carcinoma PSHx Past Surgical History: Procedure Laterality Date ??? Cataract Removal Bilateral ??? ENDOSCOPY, UPPER N/A 09/15/2017 N/A; ESOPHAGOGASTRODUODENOSCOPY (EGD) DIAGNOSTIC ??? EXCISION BURSA Right 02/08/2019 Right; EXCISION BURSA (BURSECTOMY) TROCHANTERIC/HIP ??? GENERAL SURGERY PROCEDURE Right 02/04/2019 Right; PLACEMENT WOUND VAC ??? HIP ARTHROPLASTY, REVISION Right 02/08/2019 Right; REVISION HIP ARTHROPLASTY BOTH COMPONENT ??? HX JOINT REPLACEMENT ??? HX JOINT REPLACEMENT right hip 2005, left hip 2008 ??? INCISION AND DRAINAGE Right 02/04/2019 Right; IRRIGATION AND DEBRIDEMENT WOUND HIP ??? Tracheostomy N/A 09/13/2017 N/A; TRACHEOSTOMY Social Hx Social History Tobacco Use ??? Smoking status: Former Smoker Last attempt to quit: 06/06/1981 Years since quittin.9 ??? Smokeless tobacco: Never Used Substance Use Topics ??? Alcohol use: No Family Hx family history includes Cirrhosis in his father; Coronary Artery Disease in his mother. Allergies Allergies Allergen Reactions ??? Penicillins Skin Reactions and Swelling ??? Levaquin [Levofloxacin] Eye Itching red around the eyes , puffy, itchy ??? Scopace [Scopolamine] Other and [employer] Dysfunction delirium Medications Current Facility-Administered Medications Medication ??? acetaminophen (TYLENOL) tablet 650 mg ??? acetaminophen (TYLENOL) tablet 650 mg ??? albuterol (PROVENTIL;VENTOLIN) (5 MG/ML) 0.5% nebulizer solution 2.5 mg ??? budesonide-formoterol (SYMBICORT) 160-4.5 MCG/ACT inhaler 2 puff ??? diphenhydrAMINE (BENADRYL) capsule 25 mg ??? fentaNYL (PF) (SUBLIMAZE) injection 25 mcg ??? tamsulosin (FLOMAX) capsule 0.4 mg ??? tiotropium (SPIRIVA RESPIMAT) 2.5 MCG/ACT inhaler 2 puff ??? traMADol (ULTRAM) tablet 50 mg ??? vancomycin (VANCOCIN) IV dose per pharmacy ??? vancomycin HCl (VANCOCIN) 1,250 mg in 0.9% NaCl 250 mL IVPB Review of Systems A 12 point review of systems was performed and was negative except for what was mentioned in the HPI Physical Exam General: Awake, cooperative, in no acute distress. CV: Regular rate. Pulm: No audible wheezing, no use of accessory muscles Abd: soft, nontender, nondistended Neuro: CN's 2-12 grossly intact Musculoskeletal: RLE -Appearance: Incision well healed with faint surrounding erythema proximally. Small 2mm superficialarea of skin dehiscence with scant drainage in proximal aspect of wound. Several ccs of serous drainage expressed with palpation of wound. -Tenderness: Tender to palpation of hip. -ROM: tender to hip PROM, knee, ankle, foot. Negative log roll. Negative axial load. No crepitation -Motor: Able to plantarflex ankle, able to dorsiflex ankle, able to plantarflex great toe, able to dorsiflex great toe -Sensation: intact to light touch in DP/SP/Sural/Saphenous/Tibial nerve distributions, patient endorses normal sensation in the foot -Vascular: 2+ DP/ PT pulse with toes warm and well perfused Imaging - XR of right hip are pending. Assessment/Plan: 68 year old male with history of infected right hip arthroplasty s/p 02/08/19 I&D with femoral head and poly exchange presenting with several day history of increasing wound drainage. 1. Weight bearing Status: WBAT RLE 2. Continue dry dressing changes as needed. 3. Diet: ok for diet today. Please make NPO at midnight. 4. ID consult for antibiotic recommendations. 5. Will discuss patient with staff and update plan as necessary. Alberto De Los Santos MD 04/29/2019 8:12 AM CTOR MEDIA documented in this encounter OR Notes * Brief Op Note - Alberto De Los Santos MD - 05/02/2019 1:47 PM DIRECTOR MEDIA Brief Op Note Procedure: IRRIGATION AND DEBRIDEMENT RIGHT HIP ABSCESS Patient Name: José Miguel Keys Date of Service: 05/02/2019 Pre-Op Diagnosis: Diagnosis unknown [R69] Post-Op Diagnosis: right hip superficial abscess Surgeon(s) and Role: * Larry Alexander MD - Primary Dispatcher Service Chief(s): Justin De Los Santos MD Anesthesia Type: general Complications: none Findings: Superficial abscess pocket with grossly intact deep layers, no communication of infectious material to hip joint. Wound was irrigated and closed with provena dressing application. EBL: 200cc Urine Output : see chart IV Fluid Intake: see chart Drains: GJ Tube Percutaneous Endoscopic Gastrostomy Abdomen;Left (Active) Specimen(s): right hip superficial fluid culture. Right hip deep culture. Alberto De Los Santos MD CTOR MEDIA * Operative - Larry Alexander MD - 05/02/2019 1:47 PM CST Preoperative diagnosis: Wound drainage status post modular revision for infected right hip arthroplasty with MRSA, questionable recurrent infection Postop diagnosis: Superficial abscess right hip without any significant communication to underlyinghip joint and no purulent fluid noted hip joint Procedure: 1. Incision and drainage of superficial abscess right hip 2. Arthrotomy with irrigation and debridement of right hip arthroplasty 3. Wound VAC application right hip/incisional wound VAC application Surgeon: Dispatcher Service Chief: Indications for procedure: Patient is a 5-year-old man who presented 2 months ago with an infected right hip arthroplasty treated with multiple irrigation debridements modular component exchange. He did his antibiotics postoperatively and was still on oral antibiotics when he started having some cloudy serous drainage from the superior aspect of the wound. The rest of the wound appeared completely healed and there was no erythema or fever. His C reactive protein was only minimally 0.4. Risks benefits and alternatives were discussed the patient at length and he wished to proceed with the above-named procedures versus removal of implants if we found a deep infection. Consents were obtained. Procedure: Patient was brought to the operating room, induced under general anesthesia, placed in the left-side down lateral decubitus position with an axillary roll on the left chest wall on the left leg well padded. A Cabral catheter was placed prior to the start of procedure and removed end of the procedure. All bony prominences were well padded. The pegboard was used for positioning. After appropriate time-out verifying surgical site and comorbidities and prepping and draping with alcohol and ChloraPrep a 10. Blade was used to create the posterior incision through his old scar. Upon entering the subcutaneous tissue there was a 3 x 3 cm abscess noted superficial to the fascia. This was debrided with Ronguers and Betadine solution. No obvious connection to the deep hip was noted. We thentook the hip through range of motion to see if we can't find any communicating area and no purulentfluid could be seen expressing from the deep tissues. We then thoroughly irrigated the superficial tissues and then opened the fascia and split gluteus rufus in line with its fibers proximally. Prior to we had removed some of the superficial fascial tissue after irrigating and debriding the area and inserted an needle and were unable to find any fluid. The hip joint was then opened to verify that no deep infection was noted down inside the hip joint there was minimal fluid and nothing appeared purulent. We then thoroughly irrigated the hip joint with 6 L of vancomycin impregnated saline with the Pulsavac, 1 L of dilute Betadine solution, and of dilute Dakin's solution. A g of vancomycin was then placed deep into the hip and in the more superficial soft tissues and then we closed the fascia with 3. Vicryl sutures interrupted. We finished the debridement of the superficial abscess including the subcutaneous tissues and then closed the subcutaneous tissues with 2 O Vicryl sutures interrupted followed by Prolene horizontal mattress type sutures and diogenes for a hybrid closure for theskin. A Prevena superficial wound VAC was then placed in place wound VAC machine. Patient was then placed supine on his hospital bed, awakened from general anesthesia, and taken to recovery room in stable condition. There were no complications. We did take pre and post irrigation cultures Specimens: Cultures were taken as noted above Drains: None other than the superficial wound VAC Estimated blood loss: 200 cc Sponge and needle counts were correct at the end of the procedure and I was present entire case CTOR MEDIA documented in this encounter Miscellaneous Notes * ACP (Advance Care Planning) - Dwayne Nichols APRN-GUEST ATTENDANT - 04/29/2019 9:48 AM CST Advanced Care Planning Note: Name: José Miguel Keys Date of : 1950 Admission Date: 04/29/2019 5:18 AM Date of Discussion: 04/29/2019 Active Diagnoses: Recurrent hip wound dehiscence COPD MRSA Bacteremia These active diagnoses are of sufficient risk that focused discussion on advance care planning is indicated in order to allow the patient to thoughtfully consider personal goals of care; and, if situations arise that prevent the ability to personally provide input, to ensure appropriate representation of their personal desires for different levels and aggressiveness of care. Persons present and participating in discussion: José Miguel Keys, SHAGUFTA Vargas, Mrs Keys Discussion: I reviewed with the patient the current diagnosis, treatment options, natural history of their diagnosis, and prognosis. I reviewed with the patient what decisions they have made regarding their current illness and what if things change. I discussed with the patient end of life topics including CPR and advanced cardiac life support, intubation and mechanical ventilation, pressors, dialysis, and percutaneous tube feeding nutrition. I discussed with the patient who would speak on their behalf should they be unable to do so: Mrs Keys We discussed long-term healthcare goals. I encouraged them to have conversations with family and care team, so they understand the patient's desires if such a situation occurred now or in the future if they are unable to speak for themselves. Wants to be a full code. I advised them to have these long-term healthcare goals on paper as an Advanced Directive. Total time spent [id number] in education and discussion related to advanced care plannin minutes. SHAGUFTA Vargas 04/29/2019 CTOR MEDIA documented in this encounter Plan of Treatment Upcoming Encounters Date Type Department Care Team (Late st Contact Info) Description 07/09/2024 12:30 PM DIRECTOR MEDIA Office Visit [facility] - GI [address] [place] [address], [place] [phone] Twin Miller MD [address] [place] [address] [place] [address] 09/19/2024 2:00 PM CDT Office Visit [facility] - Orthopedic Surgery [facility] [place] [phone] Larry Alexander MD [address] [place] [id number] documented as of this encounter Goals Goal Patient Goal Type Associated Problems Recent Progress Patient-Stated? Author Medication Management General On track( 023 12:04 PM CDT) Monty Still RN Note: Expected end date: Interventions: Take all medications as prescribed Let your doctor know right away about any changes in your medications Make sure to request a refill of your medication at least one week prior to your last dose documented as of this encounter Procedures Procedure Name Priority Date/Time Associated Diagnosis Comments CARDIAC RHYTHM STRIP ORDER 05/07/2019 6:01 PM DIRECTOR MEDIA CBC W AUTO DIFFERENTIAL AM Draw 05/06/2019 2:31 AM DIRECTOR MEDIA BASIC METABOLIC PANEL (CALCIUM TOTAL) AM Draw 05/06/2019 2:31 AM DIRECTOR MEDIA PLATELET COUNT AUTO AM Draw 05/05/2019 2 :15 AM DIRECTOR MEDIA BASIC METABOLIC PANEL (CALCIUM TOTAL) AM Draw 05/05/2019 2:15 AM DIRECTOR MEDIA BASIC METABOLIC PANEL (CALCIUM TOTAL) AM Draw 05/04/2019 3:07 AM DIRECTOR MEDIA VANCOMYCIN LEVEL TROUGH Timed 05/03/2019 1:21 PM DIRECTOR MEDIA CBC W AUTO DIFFERENTIAL AM Draw 05/03/2019 2:46 AM DIRECTOR MEDIA BASIC METABOLIC PANEL (CALCIUM TOTAL) AM Draw 05/03/2019 2:46 AM DIRECTOR MEDIA GLUCOSE - POINT OF CARE Routine 05/02/2019 3:23 PM DIRECTOR MEDIA CULTURE FLUID+GRAM STAIN STAT 05/02/2019 2:24 PM DIRECTOR MEDIA Diagnosis unknown CULTURE ANAEROBE STAT 05/02/2019 2:24 PM DIRECTOR MEDIA Diagnosis unknown PREPARE RBC LEUKOREDUCED UNIT STAT 05/02/2019 2:15 PM DIRECTOR MEDIA CULTURE FLUID+GRAM STAIN STAT 05/02/2019 2:09 PM DIRECTOR MEDIA Diagnosis unknown CULTURE ANAEROBE STAT 05/02/2019 2:09 PM DIRECTOR MEDIA Diagnosis unknown TYPE + SCREEN PANEL STAT 05/02/2019 2 :07 PM DIRECTOR MEDIA TN NEG PRESS WND TX PER SESS; TOT SURF </= 50 SQ CM 05/02/2019 12:37 PM DIRECTOR MEDIA Diagnosis unknown Special Needs NO REP NEEDED- 05-01-MAB### 004 ### NEEDS C-ARM TN INCIS/DRAIN PELVIS/HIP,DEEP ABSCESS 05/02/2019 12:37 PM DIRECTOR MEDIA Diagnosis unknown Special Needs NO REP NEEDED- 05-01-MAB### 004 ### NEEDS C-ARM CBC W AUTO DIFFERENTIAL AM Draw 05/02/2019 4:10 AM DIRECTOR MEDIA COMPREHENSIVE METABOLIC PANEL AM Draw 05/02/2019 4:10 AM DIRECTOR MEDIA ECHOCARDIOGRAM 2D WITH DOPPLER Routine 05/01/2019 6:07 PM DIRECTOR MEDIA 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, subsequent encounter Coronary artery disease without angina pectoris, unspecified vessel or lesion type, unspecified whether redding or transplanted heart Chronic atrial fibrillation (HCC) EKG 12-LEAD Routine 05/01/2019 3:54 PM DIRECTOR MEDIA 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, subsequent encounter XR CHEST 1VW PORTABLE Routine 05/01/2019 3:41 PM DIRECTOR MEDIA 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, subsequent encounter Coronary artery disease without angina pectoris, unspecified vessel or lesion type, unspecified whether redding or transplanted heart VANCOMYCIN LEVEL TROUGH Timed 05/01/2019 7:49 AM DIRECTOR MEDIA CBC W AUTO DIFFERENTIAL AM Draw 05/01/2019 2:44 AM DIRECTOR MEDIA BASIC METABOLIC PANEL (CALCIUM TOTAL) AM Draw 05/01/2019 2:44 AM DIRECTOR MEDIA OT EVAL AND TREAT Routine 04/30/2019 5:2 3 PM DIRECTOR MEDIA PT EVAL AND TREAT Routine 04/30/2019 5:2 3 PM DIRECTOR MEDIA PT-INR AM Draw 04/30/2019 2:42 AM DIRECTOR MEDIA CBC W AUTO DIFFERENTIAL AM Draw 04/30/2019 2:42 AM DIRECTOR MEDIA COMPREHENSIVE METABOLIC PANEL AM Draw 04/30/2019 2:42 AM DIRECTOR MEDIA CULTURE ABSCESS+GRAM STAIN Routine 04/29/2019 9:41 PM DIRECTOR MEDIA CULTURE VRE Routine 04/29/2019 9:41 PM DIRECTOR MEDIA CULTURE MRSA Routine 04/29/2019 9:41 PM DIRECTOR MEDIA CULTURE BLOOD Timed 04/29/2019 7:09 PM DIRECTOR MEDIA CULTURE BLOOD Timed 04/29/2019 7:09 PM DIRECTOR MEDIA CULTURE MRSA Routine 04/29/2019 5:56 PM DIRECTOR MEDIA XR HIP RIGHT 2VW OR MORE Routine 04/29/2019 12:18 PM DIRECTOR MEDIA 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 Scanned Document CARDIAC SERVICES ORD ERABLES * (ABNORMAL) BASIC METABOLIC PANEL (CALCIUM TOTAL) (05/06/2019 2:31 AM DIRECTOR MEDIA) Glucose 88 70 - 105 mg/dL 05/06/2019 3:22 AM DIRECTOR MEDIA [facility] Sodium 137 136 - 145 mmol/L 05/06/2019 3:22 AM DIRECTOR MEDIA [facility] Potassium 3.2(L) 3.5 - 4.7 mmol/L 05/06/2019 3:[address] [facility] Chloride 100 98 - 107 mmol/L 05/06/2019 3:[address] [facility] CO2 26 23 - 31 mmol/L 05/06/2019 3:[address] [facility] Calcium 9.2 8.4 - 10.4 mg/dL 05/06/2019 3:[address] [facility] Anion Gap 11 8 - 16 mmol/L 05/06/2019 3:[address] [facility] BUN 22 8.4 - 25.7 mg/dL 05/06/2019 3:[address] [facility] Creatinine 1.15 0.72 - 1.25 mg/dL 05/06/2019 3:[address] [facility] eGFR by MDRD >60 mL/min/1.7 3m2 05/06/2019 3:[address] [facility] eGFR by MDRD >60 mL/min/1.7 3m2 05/06/2019 3:[address] [facility] Blood BLOOD SPECIMEN / Unknown Lab Venipuncture / Unknown 05/06/2019 2:31 AM DIRECTOR MEDIA 05/06/2019 3:02 AM [facility] Kev Ordonez MD LAB - CHEMISTRY ROYCE KLINE [facility] Organization Address City/State/ZIP Co de Phone Number [facility] [address] [place] [address] * (ABNORMAL) CBC W AUTO DIFFERENTIAL (05/06/2019 2:31 AM [facility]) WBC 6.9 4.4 - 10.7 x10E9/L 05/06/2019 3:[address] [facility] WBC Corrected 05/06/2019 3:[address] [facility] RBC 3.82 3.80 - 5.40 x10E12/L 05/06/2019 3:[address] [facility] Hemoglobin 10.1(L) 12.0 - 17.6 gm/dL 05/06/2019 3:[address] [facility] Hematocrit 32.6(L) 35.2 - 51.7 % 05/06/2019 3:[address] [facility] MCV 85.3 80.7 - 98.3 fl 05/06/2019 3:[address] [facility] MCH 26.4(L) 26.7 - 34.0 pg 05/06/2019 3:[address] [facility] MCHC 31.0 30.8 - 35.9 gm/dL 05/06/2019 3:[address] [facility] Platelet Count 176 153 - 416 x10E9/L 05/06/2019 3:[address] [facility] RDW-CV 15.8(H) 12.1 - 14.9 % 05/06/2019 3:[address] [facility] MPV 13.6(H) 9.4 - 12.9 fl 05/06/2019 3:[address] [facility] Neutrophils % 61.5 44.0 - 73.0 % 05/06/2019 3:[address] [facility] Lymphocytes % 11.9(L) 20.0 - 43.0 % 05/06/2019 3:[address] [facility] Monocytes % 11.5 5.0 - 13.0 % 05/06/2019 3:[address] [facility] Eosinophils % 14.1(H) 0.0 - 6.0 % 05/06/2019 3:[address] [facility] Basophils % 0.6 0.0 - 2.0 % 05/06/2019 3:[address] [facility] Immature Granulocytes 0.4 0 - 1 % 05/06/2019 3:[address] [facility] Neutrophil Absolute 4.22 2.01 - 7.14 x10E9/L 05/06/2019 3:[address] [facility] Lymphocytes Absolute 0.82(L) 1.07 - 3.94 x10E9/L 05/06/2019 3:[address] [facility] Monocytes Absolute 0.79 0.26 - 1.07 x10E9/L 05/06/2019 3:[address] [facility] Eosinophils Absolute 0.97(H) 0 - 0.47 x10E9/L 05/06/2019 3:[address] [facility] Basophils Absolute 0.04 0 - 0.08 x10E9/L 05/06/2019 3:[address] [facility] Immature Granulocytes Absolute 0.03 0.00 - 0.06 x10E9/L 05/06/2019 3:[address] [facility] nRBC Auto 0 /100 WBC 05/06/2019 3:[address] [facility] Blood BLOOD SPECIMEN / Unknown Lab Venipuncture / Unknown 05/06/2019 2:31 AM DIRECTOR MEDIA 05/06/2019 3:02 AM DIRECTOR MEDIA Kev Ordonez MD LAB - HEMATOLOGY ORD ERABLES Performing Organization Address City/[facility] Co de Phone Number [facility] [address] [place] [address] * (ABNORMAL) BASIC METABOLIC PANEL (CALCIUM TOTAL) (05/05/2019 2:15 AM DIRECTOR MEDIA) Glucose 98 70 - 105 mg/dL 05/05/2019 3:[address] [facility] Sodium 137 136 - 145 mmol/L 05/05/2019 3:[address] [facility] Potassium 3.1(L) 3.5 - 4.7 mmol/L 05/05/2019 3:[address] [facility] Chloride 102 98 - 107 mmol/L 05/05/2019 3:[address] [facility] CO2 25 23 - 31 mmol/L 05/05/2019 3:[address] [facility] Calcium 9.1 8.4 - 10.4 mg/dL 05/05/2019 3:[address] [facility] Anion Gap 10 8 - 16 mmol/L 05/05/2019 3:[address] [facility] BUN 20 8.4 - 25.7 mg/dL 05/05/2019 3:[address] [facility] Creatinine 0.96 0.72 - 1.25 mg/dL 05/05/2019 3:[address] [facility] eGFR by MDRD >60 mL/min/1.7 3m2 05/05/2019 3:[address] [facility] eGFR by MDRD >60 mL/min/1.7 3m2 05/05/2019 3:[address] [facility] Blood BLOOD SPECIMEN / Unknown Lab Venipuncture / Unknown 05/05/2019 2:15 AM DIRECTOR MEDIA 05/05/2019 2:39 AM DIRECTOR MEDIA Michelle Pratt MD LAB - CHEMISTRY ORD ERABLES Performing Organization Address City/[facility]/ZIP Co de Phone Number [facility] [address] [place] [address] * PLATELET COUNT AUTO (05/05/2019 2:15 AM DIRECTOR MEDIA) Platelet Count 157 153 - 416 x10E9/L 05/05/2019 3:[address] [facility] Blood BLOOD SPECIMEN / Unknown Lab Venipuncture / Unknown 05/05/2019 2:15 AM DIRECTOR MEDIA 05/05/2019 2:38 AM DIRECTOR MEDIA Michelle Pratt MD LAB - HEMATOLOGY OR DERABLES [facility] [address] [place] [address] * (ABNORMAL) BASIC METABOLIC PANEL (CALCIUM TOTAL) (05/04/2019 3:07 AM DIRECTOR MEDIA) Pathologist [facility] Glucose 107(H) 70 - 105 mg/dL 05/04/2019 3:[address] [facility] Sodium 135(L) 136 - 145 mmol/L 05/04/2019 3:[address] [facility] Potassium 3.2(L) 3.5 - 4.7 mmol/L 05/04/2019 3:[address] [facility] Chloride 100 98 - 107 mmol/L 05/04/2019 3:[address] [facility] CO2 27 23 - 31 mmol/L 05/04/2019 3:[address] [facility] Calcium 9.1 8.4 - 10.4 mg/dL 05/04/2019 3:[address] [facility] Anion Gap 8 8 - 16 mmol/L 05/04/2019 3:[address] [facility] BUN 19 8.4 - 25.7 mg/dL 05/04/2019 3:[address] [facility] Creatinine 1.12 0.72 - 1.25 mg/dL 05/04/2019 3:[address] [facility] eGFR by MDRD >60 mL/min/1.7 3m2 05/04/2019 3:[address] [facility] eGFR by MDRD >60 mL/min/1.7 3m2 05/04/2019 3:[address] [facility] Blood BLOOD SPECIMEN / Unknown Lab Venipuncture / Unknown 05/04/2019 3:07 AM DIRECTOR MEDIA 05/04/2019 3:19 AM DIRECTOR MEDIA Michelle Pratt MD LAB - CHEMISTRY ORD SP Performing Organization Address [facility]/ZIP Co de Phone Number [facility] [address] [place] [address] * (ABNORMAL) VANCOMYCIN LEVEL TROUGH (05/03/2019 1:21 PM DIRECTOR MEDIA) Pathologist [facility] Vancomycin Trough 22.9(H) 10.0 - 20.0 ug/mL 05/03/2019 2:04 PM DIRECTOR MEDIA [facility] Blood BLOOD SPECIMEN / Unknown Lab Venipuncture / Unknown 05/03/2019 1:21 PM DIRECTOR MEDIA 05/03/2019 1:40 PM DIRECTOR MEDIA Raysa Nevarez MD LAB - CHEMISTRY ROYCE KLINE Performing Organization Address [facility] Co de Phone Number [facility] [address] [place] [phone] * (ABNORMAL) CBC W AUTO DIFFERENTIAL (05/03/2019 2:46 AM DIRECTOR MEDIA) [facility] WBC 9.6 4.4 - 10.7 x10E9/L 05/03/2019 3:[address] [facility] WBC Corrected 05/03/2019 3:[address] [facility] RBC 4.22 3.80 - 5.40 x10E12/L 05/03/2019 3:[address] [facility] Hemoglobin 11.2(L) 12.0 - 17.6 gm/dL 05/03/2019 3:46 AM DIRECTOR MEDIA [facility] Hematocrit 38.1 35.2 - 51.7 % 05/03/2019 3:[address] [facility] MCV 90.3 80.7 - 98.3 fl 05/03/2019 3:[address] [facility] MCH 26.5(L) 26.7 - 34.0 pg 05/03/2019 3:[address] [facility] MCHC 29.4(L) 30.8 - 35.9 gm/dL 05/03/2019 3:[address] [facility] Platelet Count 138(L) 153 - 416 x10E9/L 05/03/2019 3:[address] [facility] RDW-CV 16.0(H) 12.1 - 14.9 % 05/03/2019 3:[address] [facility] MPV 13.6(H) 9.4 - 12.9 fl 05/03/2019 3:[address] [facility] Neutrophils % 73.5(H) 44.0 - 73.0 % 05/03/2019 3:[address] [facility] Lymphocytes % 6.1(L) 20.0 - 43.0 % 05/03/2019 3:[address] [facility] Monocytes % 9.9 5.0 - 13.0 % 05/03/2019 3:[address] [facility] Eosinophils % 9.5(H) 0.0 - 6.0 % 05/03/2019 3:[address] [facility] Basophils % 0.6 0.0 - 2.0 % 05/03/2019 3:[address] [facility] Immature Granulocytes 0.4 0 - 1 % 05/03/2019 3:[address] [facility] Neutrophil Absolute 7.04 2.01 - 7.14 x10E9/L 05/03/2019 3:[address] [facility] Lymphocytes Absolute 0.58(L) 1.07 - 3.94 x10E9/L 05/03/2019 3:[address] [facility] Monocytes Absolute 0.95 0.26 - 1.07 x10E9/L 05/03/2019 3:[address] [facility] Eosinophils Absolute 0.91(H) 0 - 0.47 x10E9/L 05/03/2019 3:[address] [facility] Basophils Absolute 0.06 0 - 0.08 x10E9/L 05/03/2019 3:[address] [facility] Immature Granulocytes Absolute 0.04 0.00 - 0.06 x10E9/L 05/03/2019 3:[address] [facility] nRBC Auto 0 /100 WBC 05/03/2019 3:[address] [facility] Blood BLOOD SPECIMEN / Unknown Lab Venipuncture / Unknown 05/03/2019 2:46 AM DIRECTOR MEDIA 05/03/2019 3:36 AM DIRECTOR MEDIA Kev W Ordonez MD LAB - HEMATOLOGY ORD SP [facility] [address] [place] [address] * BASIC METABOLIC PANEL (CALCIUM TOTAL) (05/03/2019 2:46 AM DIRECTOR MEDIA) Glucose 86 70 - 105 mg/dL 05/03/2019 4:[address] [facility] Sodium 140 136 - 145 mmol/L 05/03/2019 4:[address] [facility] Potassium 4.2 3.5 - 4.7 mmol/L 05/03/2019 4:[address] [facility] Chloride 104 98 - 107 mmol/L 05/03/2019 4:[address] [facility] CO2 24 23 - 31 mmol/L 05/03/2019 4:[address] [facility] Calcium 9.4 8.4 - 10.4 mg/dL 05/03/2019 4:[address] [facility] Anion Gap 12 8 - 16 mmol/L 05/03/2019 4:[address] [facility] BUN 16 8.4 - 25.7 mg/dL 05/03/2019 4:[address] [facility] Creatinine 1.04 0.72 - 1.25 mg/dL 05/03/2019 4:[address] [facility] eGFR by MDRD >60 mL/min/1.7 3m2 05/03/2019 4:[address] [facility] eGFR by MDRD >60 mL/min/1.7 3m2 05/03/2019 4:[address] [facility] Blood BLOOD SPECIMEN / Unknown Lab Venipuncture / Unknown 05/03/2019 2:46 AM DIRECTOR MEDIA 05/03/2019 3:37 AM DIRECTOR MEDIA Kev Ordonez MD LAB - CHEMISTRY ROYCE KLINE [facility] [address] [place] [address] * GLUCOSE - POINT OF CARE (05/02/2019 3:23 PM DIRECTOR MEDIA) Glucose WB/POC 101 70 - 106 mg/dL 05/02/2019 6:02 PM DIRECTOR MEDIA [facility] Specimen Type Arterial/C apillary 05/02/2019 6:02 PM DIRECTOR MEDIA [facility] Blood BLOOD SPECIMEN / Unknown 05/02/2019 3:23 PM DIRECTOR MEDIA 05/02/2019 6:02 PM DIRECTOR MEDIA Kev Ordonez MD LAB - POINT OF CARE ORDERABLES [facility] [address] [place] [address] * CULTURE FLUID+GRAM STAIN (05/02/2019 2:24 PM DIRECTOR MEDIA) Culture No growth [facility] 05/09/2019 6:44 AM DIRECTOR MEDIA [facility] Gram Stain Rare Polymorphonuclear cells 05/09/2019 6:44 AM [facility] Gram Stain No organisms seen 019 6:44 AM DIRECTOR MEDIA [facility] Fluid BODY FLUID SPECIMEN / Unknown Collection / Unknown 05/02/2019 2:24 PM DIRECTOR MEDIA 05/02/2019 3:22 PM DIRECTOR MEDIA Comment:Pre-op diagnosis: Diagnosis unknown [R69] Narrative [facility] - 05/09/2019 6:44 AM DIRECTOR MEDIA Surgical Description: Post Irrigation Right Hip Fluid Larry Alexander MD LAB - MICROBIOLOGY ORDERABLES Performing Organization Address [facility] Co de Phone Number [facility] [address] [place] [address] [phone] * CULTURE ANAEROBE (05/02/2019 2:24 PM DIRECTOR MEDIA) Culture No anaerobic organisms isolated [facility] 05/07/2019 12:40 PM DIRECTOR MEDIA [facility] Fluid BODY FLUID SPECIMEN / Unknown Collection / Unknown 05/02/2019 2:24 PM DIRECTOR MEDIA 05/02/2019 3:22 PM DIRECTOR MEDIA Comment:Pre-op diagnosis: Diagnosis unknown [R69] Narrative [facility] - 05/07/2019 12:40 PM DIRECTOR MEDIA Surgical Description: Post Irrigation Right Hip Fluid Larry Alexander MD LAB - MICROBIOLOGY ORDERABLES [facility] [address] [phone] * PREPARE (CROSSMATCH) RBC UNIT(S), 2 Units (05/02/2019 2:15 PM DIRECTOR MEDIA) Product Code [id number] [facility] Unit Donor # [id number] S [facility] ABO Donor Type A [facility] Rh Type Unit POS [facility] Unit Status Ret'd [facility] ABO Rh Type Unit APOS [facility] Donor Unit Expiration Date [facility] Blood Type Barcode 6200 [facility] Product Code [id number] [facility] Donor # [id number] S [facility] ABO Donor Type A [facility] Rh Type Unit POS [facility] Unit Status Ret'd [facility] ABO Rh Type Unit APOS [facility] Donor Unit Expiration Date [facility] Blood Type Barcode 6200 [facility] Blood Bank BLOOD SPECIMEN / Unknown 05/02/2019 2:15 PM DIRECTOR MEDIA Larry Alexander MD LAB - BLOOD BANK OR DERABLES Performing Organization Address [facility]/State/ZIP Co de Phone Number [facility] [address] [place] [address], [facility] [phone] * CULTURE FLUID+GRAM STAIN (05/02/2019 2:09 PM DIRECTOR MEDIA) Culture No growth [facility] 05/09/2019 6:44 AM DIRECTOR MEDIA [facility] Gram Stain No organisms seen 019 6:44 AM [facility] Gram Stain Light Polymorphonuclear cells 05/09/2019 6:44 AM [facility] Fluid BODY FLUID SPECIMEN / Unknown Collection / Unknown 05/02/2019 2:09 PM DIRECTOR MEDIA 05/02/2019 2:40 PM DIRECTOR MEDIA Comment:Pre-op diagnosis: Diagnosis unknown [R69] Narrative [facility] - 05/09/2019 6:44 AM DIRECTOR MEDIA Surgical Description: Right Hip Fluid Larry Alexander MD LAB - MICROBIOLOGY ORDERABLES Performing Organization Address City/[facility]/ZIP Co de Phone Number [facility] [address] [place] [phone] * CULTURE ANAEROBE (05/02/2019 2:09 PM DIRECTOR MEDIA) Culture No anaerobic organisms isolated [facility] 05/07/2019 12:42 PM DIRECTOR MEDIA [facility] Fluid BODY FLUID SPECIMEN / Unknown Collection / Unknown 05/02/2019 2:09 PM DIRECTOR MEDIA 05/02/2019 2:40 PM DIRECTOR MEDIA Comment:Pre-op diagnosis: Diagnosis unknown [R69] Narrative [facility] - 05/07/2019 12:42 PM DIRECTOR MEDIA Surgical Description: Right Hip Fluid Larry Alexander MD LAB - MICROBIOLOGY ORDERABLES Performing Organization Address [facility] Co de Phone Number [facility] [address] [place] [phone] * TYPE + SCREEN PANEL (05/02/2019 2:07 PM DIRECTOR MEDIA) ABO A 05/02/2019 2:34 PM DIRECTOR MEDIA [facility] Rh Type Positive 05/02/2019 2:34 PM DIRECTOR MEDIA [facility] Comment:History checked. Antibody Screen Negative 05/02/2019 2:34 PM DIRECTOR MEDIA [facility] Blood Bank BLOOD SPECIMEN / Unknown Venipuncture / Unknown 05/02/2019 2:07 PM DIRECTOR MEDIA 05/02/2019 2:07 PM DIRECTOR MEDIA Larry Alexander MD LAB - BLOOD BANK OR DERABLES Performing Organization Address City/[facility]/ZIP Co de Phone Number [facility] [address] [place] [address], [facility] [phone] * (ABNORMAL) COMPREHENSIVE METABOLIC PANEL (05/02/2019 4:10 AM DIRECTOR MEDIA) Glucose 98 70 - 105 mg/dL 05/02/2019 6:02 AM DIRECTOR MEDIA [facility] Sodium 138 136 - 145 mmol/L 05/02/2019 6:02 AM DIRECTOR MEDIA [facility] Potassium 3.6 3.5 - 4.7 mmol/L 05/02/2019 6:[address] [facility] Chloride 102 98 - 107 mmol/L 05/02/2019 6:[address] [facility] CO2 27 23 - 31 mmol/L 05/02/2019 6:[address] [facility] Calcium 9.4 8.4 - 10.4 mg/dL 05/02/2019 6:[address] [facility] Anion Gap 9 8 - 16 mmol/L 05/02/2019 6:[address] [facility] BUN 20 8.4 - 25.7 mg/dL 05/02/2019 6:[address] [facility] Creatinine 1.13 0.72 - 1.25 mg/dL 05/02/2019 6:[address] [facility] Alkaline Phosphatase 211(H) 40 - 150 U/L 05/02/2019 6:[address] [facility] ALT 26 0 - 61 U/L 05/02/2019 6:[address] [facility] AST 25 5 - 34 U/L 05/02/2019 6:[address] [facility] [facility] Protein Total 7.3 6.4 - 8.3 gm/dL 05/02/2019 6:[address] [facility] Albumin 3.6 3.2 - 4.6 gm/dL 05/02/2019 6:[address] [facility] Bilirubin Total 1.1 0.2 - 1.2 mg/dL 05/02/2019 6:[address] [facility] eGFR by MDRD >60 mL/min/1.7 3m2 05/02/2019 6:[address] [facility] eGFR by MDRD >60 mL/min/1.7 3m2 05/02/2019 6:[address] [facility] Blood BLOOD SPECIMEN / Unknown Lab Venipuncture / Unknown 05/02/2019 4:10 AM DIRECTOR MEDIA 05/02/2019 4:52 AM [facility] Kev Ordonez MD LAB - CHEMISTRY ROYCE KLINE [facility] Organization Address City/State/ZIP Co de Phone Number [facility] [address], [place] [phone] * (ABNORMAL) CBC W AUTO DIFFERENTIAL (05/02/2019 4:10 AM [facility]) WBC 6.6 4.4 - 10.7 x10E9/L 05/02/2019 5:[address] [facility] WBC Corrected 05/02/2019 5:[address] [facility] RBC 4.12 3.80 - 5.40 x10E12/L 05/02/2019 5:[address] [facility] Hemoglobin 10.8(L) 12.0 - 17.6 gm/dL 05/02/2019 5:[address] [facility] Hematocrit 36.7 35.2 - 51.7 % 05/02/2019 5:[address] [facility] MCV 89.1 80.7 - 98.3 fl 05/02/2019 5:[address] [facility] MCH 26.2(L) 26.7 - 34.0 pg 05/02/2019 5:[address] [facility] MCHC 29.4(L) 30.8 - 35.9 gm/dL 05/02/2019 5:[address] [facility] Platelet Count 143(L) 153 - 416 x10E9/L 05/02/2019 5:[address] [facility] RDW-CV 15.9(H) 12.1 - 14.9 % 05/02/2019 5:[address] [facility] MPV 12.7 9.4 - 12.9 fl 05/02/2019 5:[address] [facility] Neutrophils % 63.3 44.0 - 73.0 % 05/02/2019 5:[address] [facility] Lymphocytes % 10.1(L) 20.0 - 43.0 % 05/02/2019 5:[address] [facility] Monocytes % 11.3 5.0 - 13.0 % 05/02/2019 5:[address] [facility] Eosinophils % 14.0(H) 0.0 - 6.0 % 05/02/2019 5:[address] [facility] Basophils % 0.8 0.0 - 2.0 % 05/02/2019 5:[address] [facility] Immature Granulocytes 0.5 0 - 1 % 05/02/2019 5:[address] [facility] Neutrophil Absolute 4.16 2.01 - 7.14 x10E9/L 05/02/2019 5:[address] [facility] Lymphocytes Absolute 0.66(L) 1.07 - 3.94 x10E9/L 05/02/2019 5:[address] [facility] Monocytes Absolute 0.74 0.26 - 1.07 x10E9/L 05/02/2019 5:[address] [facility] Eosinophils Absolute 0.92(H) 0 - 0.47 x10E9/L 05/02/2019 5:[address] [facility] Basophils Absolute 0.05 0 - 0.08 x10E9/L 05/02/2019 5:[address] [facility] Immature Granulocytes Absolute 0.03 0.00 - 0.06 x10E9/L 05/02/2019 5:[address] [facility] nRBC Auto 0 /100 WBC 05/02/2019 5:[address] [facility] Blood BLOOD SPECIMEN / Unknown Lab Venipuncture / Unknown 05/02/2019 4:10 AM DIRECTOR MEDIA 05/02/2019 4:52 AM DIRECTOR MEDIA Kev Ordonez MD LAB - HEMATOLOGY ORD ERABLES [facility] [address] [place] [phone] * ECHOCARDIOGRAM 2D WITH DOPPLER (05/01/2019 6:07 PM DIRECTOR MEDIA) 05/01/2019 6:07 PM DIRECTOR MEDIA Narrative [facility] - 05/02/2019 9:34 AM [facility] [address] [place] [id number] Transthoracic Echocardiogram 2D, M-mode, Doppler, and Color Doppler Patient: JOSÉ MIGUEL KEYS MR number: [id number] Height: 71 in Weight: 219.6 lb BSA: 2.2 m?? Study date: 01-May-2019 : 1950 Age: 68 years Gender: Male Race: Allergies: PENICILLINS, LEVOFLOXACIN, SCOPOLAMINE Orthopedic Specialist: ??Gómez Finch Referring Physician: ??Kev Ordonez MD [...] Procedure Note Constantino Sims MD - 05/02/2019 [place] [address] Transthoracic Echocardiogram 2D, M-mode, Doppler, and Color Doppler Patient: JOSÉ MIGUEL KEYS MR number: [id number] Height: 71 in Weight: 219.6 lb BSA: 2.2 m?? Study date: 01-May-2019 : 1950 Age: 68 years Gender: Male Race: Allergies: PENICILLINS, LEVOFLOXACIN, SCOPOLAMINE Orthopedic Specialist: Gómez Finch Referring Physician: Kev Ordonez MD [...] 02-May-2019 09:37:01 Kev Ordonez MD ECHO ORDERABLES Performing Organization Address [facility] de Phone Number [facility] [address] [place] [address] * EKG 12-LEAD (05/01/2019 3:54 PM DIRECTOR MEDIA) [facility] Ventricular Rate 82 BPM [facility] Atrial Rate 312 BPM [facility] QRS Duration ms 90 ms [facility] Q-T Interval ms 380 ms [facility] QTC Calculation (Bezet) 443 ms [facility] Calculated R [place] -9 degrees [facility] Calculated T [place] 42 degrees [facility] Interpretation EKG ATRIAL FIBRILLATION WITH PREMATURE VENTRICULAR OR ABERRANTLY CONDUCTED COMPLEXES ABNORMAL ECG Confirmed by MD Jane, Zhang ([id number]) on 05/02/2019 8:32:37 AM [facility] 05/01/2019 3:54 PM DIRECTOR MEDIA 05/02/2019 8:32 AM DIRECTOR MEDIA Kev Ordonez MD ECG ORDERABLES Performing Organization Address [facility] Co de Phone Number [facility] * XR CHEST 1VW PORTABLE (05/01/2019 3:41 PM DIRECTOR MEDIA) Anatomical Region Laterality Modality Chest Radiographic Sahma ging 05/01/2019 3:49 PM DIRECTOR MEDIA Narrative 05/01/2019 3:50 PM DIRECTOR MEDIA Chest one view 1525 hours HISTORY: Infected right hip prosthesis Since 02/13/2019 there's been no change the heart size which is normal. The aorta is atherosclerotic. The pulmonary vascularity is normal. There is mild blunting of left costophrenic angle could represent small pleural effusion. The right lung is clear. Reading Radiologist: Yasmany Medina MD on 05/01/2019 at 3:50 PM Procedure Note Yasmany Medina MD - 05/01/2019 Chest one view 1525 hours HISTORY: Infected right hip prosthesis Since 02/13/2019 there's been no change the heart size which is normal. The aorta is atherosclerotic. The pulmonary vascularity is normal. There is mild blunting of left costophrenic angle could represent small pleural effusion. The right lung is clear. Reading Radiologist: Yasmany Medina MD on 05/01/2019 at 3:50 PM Kev Ordonez MD DIAGNOSTIC IMAGING O RDERABLES * (ABNORMAL) VANCOMYCIN LEVEL TROUGH (05/01/2019 7:49 AM DIRECTOR MEDIA) Pathologist [facility] Vancomycin Trough 8.1(L) 10.0 - 20.0 ug/mL 05/01/2019 8:[address] [facility] Blood BLOOD SPECIMEN / Unknown Lab Venipuncture / Unknown 05/01/2019 7:49 AM DIRECTOR MEDIA 05/01/2019 8:12 AM DIRECTOR MEDIA Armida Gomez MD LAB - CHEMISTRY ROYCE KLINE [facility] Organization Address City/State/ZIP Co de Phone Number [facility] [address] [place] [address] * BASIC METABOLIC PANEL (CALCIUM TOTAL) (05/01/2019 2:44 AM DIRECTOR MEDIA) Pathologist [facility] Glucose 89 70 - 105 mg/dL 05/01/2019 4:[address] [facility] Sodium 141 136 - 145 mmol/L 05/01/2019 4:[address] [facility] Potassium 4.7 3.5 - 4.7 mmol/L 05/01/2019 4:[address] [facility] Chloride 106 98 - 107 mmol/L 05/01/2019 4:[address] [facility] CO2 26 23 - 31 mmol/L 05/01/2019 4:[address] [facility] Calcium 9.8 8.4 - 10.4 mg/dL 05/01/2019 4:[address] [facility] Anion Gap 9 8 - 16 mmol/L 05/01/2019 4:[address] [facility] BUN 25 8.4 - 25.7 mg/dL 05/01/2019 4:[address] [facility] Creatinine 1.04 0.72 - 1.25 mg/dL 05/01/2019 4:[address] [facility] eGFR by MDRD >60 mL/min/1.7 3m2 05/01/2019 4:[address] [facility] eGFR by MDRD >60 mL/min/1.7 3m2 05/01/2019 4:[address] [facility] Blood BLOOD SPECIMEN / Unknown Lab Venipuncture / Unknown 05/01/2019 2:44 AM DIRECTOR MEDIA 05/01/2019 3:34 AM DIRECTOR MEDIA Kev Ordonez MD LAB - CHEMISTRY ROYCE KLINE [facility] [address], [place] [phone] * (ABNORMAL) CBC W AUTO DIFFERENTIAL (05/01/2019 2:44 AM DIRECTOR MEDIA) WBC 7.2 4.4 - 10.7 x10E9/L 05/01/2019 3:[address] [facility] WBC Corrected 05/01/2019 3:[address] [facility] RBC 3.98 3.80 - 5.40 x10E12/L 05/01/2019 3:[address] [facility] Hemoglobin 10.6(L) 12.0 - 17.6 gm/dL 05/01/2019 3:[address] [facility] Hematocrit 35.6 35.2 - 51.7 % 05/01/2019 3:[address] [facility] MCV 89.4 80.7 - 98.3 fl 05/01/2019 3:[address] [facility] MCH 26.6(L) 26.7 - 34.0 pg 05/01/2019 3:[address] [facility] MCHC 29.8(L) 30.8 - 35.9 gm/dL 05/01/2019 3:[address] [facility] Platelet Count 148(L) 153 - 416 x10E9/L 05/01/2019 3:[address] [facility] RDW-CV 15.9(H) 12.1 - 14.9 % 05/01/2019 3:[address] [facility] MPV 13.7(H) 9.4 - 12.9 fl 05/01/2019 3:[address] [facility] Neutrophils % 62.7 44.0 - 73.0 % 05/01/2019 3:[address] [facility] Lymphocytes % 11.7(L) 20.0 - 43.0 % 05/01/2019 3:[address] [facility] Monocytes % 11.7 5.0 - 13.0 % 05/01/2019 3:[address] [facility] Eosinophils % 12.8(H) 0.0 - 6.0 % 05/01/2019 3:[address] [facility] Basophils % 0.8 0.0 - 2.0 % 05/01/2019 3:[address] [facility] Immature Granulocytes 0.3 0 - 1 % 05/01/2019 3:[address] [facility] Neutrophil Absolute 4.53 2.01 - 7.14 x10E9/L 05/01/2019 3:[address] [facility] Lymphocytes Absolute 0.84(L) 1.07 - 3.94 x10E9/L 05/01/2019 3:[address] [facility] Monocytes Absolute 0.84 0.26 - 1.07 x10E9/L 05/01/2019 3:[address] [facility] Eosinophils Absolute 0.92(H) 0 - 0.47 x10E9/L 05/01/2019 3:[address] [facility] Basophils Absolute 0.06 0 - 0.08 x10E9/L 05/01/2019 3:[address] [facility] Immature Granulocytes Absolute 0.02 0.00 - 0.06 x10E9/L 05/01/2019 3:[address] [facility] nRBC Auto 0 /100 WBC 05/01/2019 3:[address] [facility] Blood BLOOD SPECIMEN / Unknown Lab Venipuncture / Unknown 05/01/2019 2:44 AM DIRECTOR MEDIA 05/01/2019 3:34 AM DIRECTOR MEDIA Kev Ordonez MD LAB - HEMATOLOGY ORD ERABLES [facility] [address] [place] [address] * PT-INR (04/30/2019 2:42 AM [facility]) PT 13.9 12.1 - 14.8 sec 04/30/2019 3:[address] [facility] INR 1.1 0.9 - 1.1 04/30/2019 3:[address] [facility] Blood BLOOD SPECIMEN / Unknown Lab Venipuncture / Unknown 04/30/2019 2:42 AM DIRECTOR MEDIA 04/30/2019 3:13 AM [facility] Narrative [facility] - 04/30/2019 3:40 AM [facility] Conventional Warfarin Anticoagulant Therapy: INR Reference Range: ??2.0-3.0 Intensive Warfarin Anticoagulant Therapy: INR Reference Range: ? 2.5-3.5 Yasmany Oh MD LAB - COAGULATION OR DERABLES [facility] [address] [place] [id number] * (ABNORMAL) COMPREHENSIVE METABOLIC PANEL (04/30/2019 2:42 AM [facility]) Pathologist [facility] Glucose 101 70 - 105 mg/dL 04/30/2019 3:[address] [facility] Sodium 138 136 - 145 mmol/L 04/30/2019 3:[address] [facility] Potassium 3.4(L) 3.5 - 4.7 mmol/L 04/30/2019 3:[address] [facility] Chloride 105 98 - 107 mmol/L 04/30/2019 3:[address] [facility] CO2 26 23 - 31 mmol/L 04/30/2019 3:[address] [facility] Calcium 9.5 8.4 - 10.4 mg/dL 04/30/2019 3:[address] [facility] Anion Gap 7(L) 8 - 16 mmol/L 04/30/2019 3:[address] [facility] BUN 24 8.4 - 25.7 mg/dL 04/30/2019 3:[address] [facility] Creatinine 1.00 0.72 - 1.25 mg/dL 04/30/2019 3:[address] [facility] Alkaline Phosphatase 188(H) 40 - 150 U/L 04/30/2019 3:47 AM DIRECTOR MEDIA [facility] ALT 27 0 - 61 U/L 04/30/2019 3:47 AM DIRECTOR MEDIA [facility] AST 30 5 - 34 U/L 04/30/2019 3:47 AM DIRECTOR MEDIA [facility] Protein Total 6.9 6.4 - 8.3 gm/dL 04/30/2019 3:47 AM DIRECTOR MEDIA [facility] Albumin 3.5 3.2 - 4.6 gm/dL 04/30/2019 3:[address] [facility] Bilirubin Total 0.5 0.2 - 1.2 mg/dL 04/30/2019 3:47 AM DIRECTOR MEDIA [facility] eGFR by MDRD >60 mL/min/1.7 3m2 04/30/2019 3:47 AM DIRECTOR MEDIA [facility] eGFR by MDRD >60 mL/min/1.7 3m2 04/30/2019 3:[address] [facility] Blood BLOOD SPECIMEN / Unknown Lab Capillary / Unknown 04/30/2019 2:42 AM DIRECTOR MEDIA 04/30/2019 3:13 AM DIRECTOR MEDIA Yasmany Oh MD LAB - CHEMISTRY ROYCE [facility] Organization Address City/State/ZIP Co de Phone Number [facility] [address], [place] [phone] * (ABNORMAL) CBC W AUTO DIFFERENTIAL (04/30/2019 2:42 AM DIRECTOR MEDIA) WBC 7.9 4.4 - 10.7 x10E9/L 04/30/2019 3:[address] [facility] WBC Corrected 04/30/2019 3:[address] [facility] RBC 4.01 3.80 - 5.40 x10E12/L 04/30/2019 3:[address] [facility] Hemoglobin 10.5(L) 12.0 - 17.6 gm/dL 04/30/2019 3:[address] [facility] Hematocrit 35.3 35.2 - 51.7 % 04/30/2019 3:[address] [facility] MCV 88.0 80.7 - 98.3 fl 04/30/2019 3:[address] [facility] MCH 26.2(L) 26.7 - 34.0 pg 04/30/2019 3:24 AM DIRECTOR MEDIA [facility] MCHC 29.7(L) 30.8 - 35.9 gm/dL 04/30/2019 3:[address] [facility] Platelet Count 159 153 - 416 x10E9/L 04/30/2019 3:[address] [facility] RDW-CV 15.9(H) 12.1 - 14.9 % 04/30/2019 3:[address] [facility] MPV 12.9 9.4 - 12.9 fl 04/30/2019 3:[address] [facility] Neutrophils % 64.6 44.0 - 73.0 % 04/30/2019 3:[address] [facility] Lymphocytes % 10.3(L) 20.0 - 43.0 % 04/30/2019 3:[address] [facility] Monocytes % 10.2 5.0 - 13.0 % 04/30/2019 3:[address] [facility] Eosinophils % 14.0(H) 0.0 - 6.0 % 04/30/2019 3:[address] [facility] Basophils % 0.6 0.0 - 2.0 % 04/30/2019 3:[address] [facility] Immature Granulocytes 0.3 0 - 1 % 04/30/2019 3:[address] [facility] Neutrophil Absolute 5.09 2.01 - 7.14 x10E9/L 04/30/2019 3:[address] [facility] Lymphocytes Absolute 0.81(L) 1.07 - 3.94 x10E9/L 04/30/2019 3:[address] [facility] Monocytes Absolute 0.80 0.26 - 1.07 x10E9/L 04/30/2019 3:[address] [facility] Eosinophils Absolute 1.10(H) 0 - 0.47 x10E9/L 04/30/2019 3:[address] [facility] Basophils Absolute 0.05 0 - 0.08 x10E9/L 04/30/2019 3:[address] [facility] Immature Granulocytes Absolute 0.02 0.00 - 0.06 x10E9/L 04/30/2019 3:[address] [facility] nRBC Auto 0 /100 WBC 04/30/2019 3:[address] [facility] Blood BLOOD SPECIMEN / Unknown Lab Venipuncture / Unknown 04/30/2019 2:42 AM DIRECTOR MEDIA 04/30/2019 3:13 AM DIRECTOR MEDIA Yasmany Oh MD LAB - HEMATOLOGY ORD ERABLES [facility] [address] [place] [address] * CULTURE ABSCESS+GRAM STAIN (04/29/2019 9:41 PM DIRECTOR MEDIA) Culture No growth UMESH 05/03/2019 8:32 AM DIRECTOR MEDIA [facility] Gram Stain Rare Polymorphonuclear cells 05/03/2019 8:32 AM DIRECTOR MEDIA [facility] Gram Stain No organisms seen 019 8:32 AM [facility] Microbiology ENTIRE HIP REGION / Unknown Collection / Unknown 04/29/2019 9:41 PM DIRECTOR MEDIA 04/29/2019 11:20 PM DIRECTOR MEDIA Armida Gomez MD LAB - MICROBIOLOGY O RDSP Performing Organization Address [facility] Co de Phone Number [facility] [address] [place] [address], [facility] [phone] * (ABNORMAL) CULTURE VRE (04/29/2019 9:41 PM DIRECTOR MEDIA) Culture Growth of Enterococcus species vancomycin-resis tant (VRE)(A) UMESH 05/01/2019 6:09 AM DIRECTOR MEDIA [facility] Microbiology ENTIRE RECTUM / Unknown Collection / Unknown 04/29/2019 9:41 PM DIRECTOR MEDIA 04/29/2019 11:20 PM DIRECTOR MEDIA Narrative [facility] - 05/01/2019 6:09 AM DIRECTOR MEDIA For vancomycin-resistant enterococci (VRE), contact precautions are required. For any questions, call Infection Prevention. Yasmany Oh MD LAB - MICROBIOLOGY O RDSP [facility] [address] [place] [address], [facility] [phone] * CULTURE MRSA (04/29/2019 9:41 PM DIRECTOR MEDIA) Culture Negative for methicillin-resist ant Staphylococcus aureus (MRSA) UMESH 05/01/2019 5:24 AM DIRECTOR MEDIA [facility] Microbiology ENTIRE RECTUM / Unknown Collection / Unknown 04/29/2019 9:41 PM DIRECTOR MEDIA 04/29/2019 11:20 PM DIRECTOR MEDIA Yasmany Oh MD LAB - MICROBIOLOGY O RDSP Performing Organization Address City/[facility]/ZIP Co de Phone Number [facility] [address] [place] [address], [facility] [phone] * CULTURE BLOOD (04/29/2019 7:09 PM DIRECTOR MEDIA) Culture No growth day 5 UMESH 05/04/2019 10:00 PM DIRECTOR MEDIA [facility] Blood PERIPHERAL BLOOD / Unknown Lab Venipuncture / Unknown 04/29/2019 7:09 PM DIRECTOR MEDIA 04/29/2019 7:18 PM DIRECTOR MEDIA Armida Gomez MD LAB - MICROBIOLOGY O RIO Performing Organization Address [facility]/ZIP Co de Phone Number [facility] [address] [place] [address], [facility] [phone] * CULTURE BLOOD (04/29/2019 7:09 PM DIRECTOR MEDIA) Culture No growth day 5 UMESH 05/04/2019 10:00 PM DIRECTOR MEDIA [facility] Blood PERIPHERAL BLOOD / Unknown Lab Venipuncture / Unknown 04/29/2019 7:09 PM DIRECTOR MEDIA 04/29/2019 7:18 PM DIRECTOR MEDIA Armida Gomez MD LAB - MICROBIOLOGY O RDSP Performing Organization Address City/[facility]/ZIP Co de Phone Number [facility] [address] [place] [address], [facility] [phone] * (ABNORMAL) CULTURE MRSA (04/29/2019 5:56 PM DIRECTOR MEDIA) Culture Growth of Staphylococcus aureus methicillin-resist ant (MRSA)(A) UMESH 05/01/2019 5:19 AM DIRECTOR MEDIA [facility] Microbiology SPECIMEN FROM NASAL FOSSAE / Unknown Collection / Unknown 04/29/2019 5:56 PM DIRECTOR MEDIA 04/29/2019 5:56 PM DIRECTOR MEDIA Narrative [facility] - 05/01/2019 5:19 AM DIRECTOR MEDIA Methicillin-resistant Staphylococci (MRSA) are resistant to all currently available beta-lactam antibiotics with the exception of the newer cephalosporins with anti-MRSA activity. Contact precautions required. Yasmany Oh MD LAB - MICROBIOLOGY O RDERABLES [facility] [address] [place] [address], [facility] [phone] * XR HIP RIGHT 2VW OR MORE (04/29/2019 12:18 PM DIRECTOR MEDIA) Anatomical Region Laterality Modality Pelvis, Lower Extremity Radiogra phic Imaging 04/29/2019 12:3 8 PM DIRECTOR MEDIA Impressions 04/29/2019 12:57 PM DIRECTOR MEDIA Satisfactory postop appearance. Edited by Alaina Alvarado on 04/29/2019 12:44 PM Reading Radiologist: Ash Bill MD on 04/29/2019 at 12:57 PM Narrative 04/29/2019 12:57 PM DIRECTOR MEDIA RIGHT HIP. HISTORY: Pain. Views of the right hip show a total hip prosthesis in satisfactory position. Heterotopic ossification or calcification may be present. Procedure Note Ash Bill MD - 04/29/2019 RIGHT HIP. HISTORY: Pain. Views of the right hip show a total hip prosthesis in satisfactory position. Heterotopic ossification or calcification may be present. IMPRESSION Satisfactory postop appearance. Edited by Alaina Alvarado on 04/29/2019 12:44 PM Reading Radiologist: Ash Bill MD on 04/29/2019 at 12:57 PM Alberto De Los Santos MD DIAGNOSTIC I MAGING ORDERABLES * (ABNORMAL) BASIC METABOLIC PANEL (CALCIUM TOTAL) (04/29/2019 6:44 AM DIRECTOR MEDIA) Glucose 102 70 - 105 mg/dL 04/29/2019 7:10 AM DIRECTOR MEDIA [facility] Sodium 140 136 - 145 mmol/L 04/29/2019 7:10 AM DIRECTOR MEDIA [facility] Potassium 3.6 3.5 - 4.7 mmol/L 04/29/2019 7:[address] [facility] Chloride 107 98 - 107 mmol/L 04/29/2019 7:[address] [facility] CO2 23 23 - 31 mmol/L 04/29/2019 7:[address] [facility] Calcium 9.3 8.4 - 10.4 mg/dL 04/29/2019 7:[address] [facility] Anion Gap 10 8 - 16 mmol/L 04/29/2019 7:[address] [facility] BUN 30(H) 8.4 - 25.7 mg/dL 04/29/2019 7:[address] [facility] Creatinine 1.14 0.72 - 1.25 mg/dL 04/29/2019 7:[address] [facility] eGFR by MDRD >60 mL/min/1.7 3m2 04/29/2019 7:[address] [facility] eGFR by MDRD >60 mL/min/1.7 3m2 04/29/2019 7:[address] [facility] Blood BLOOD SPECIMEN / Unknown Lab Venipuncture / Unknown 04/29/2019 6:44 AM DIRECTOR MEDIA 04/29/2019 6:51 AM DIRECTOR MEDIA Yasmany Oh MD LAB - CHEMISTRY ROYCE KLINE [facility] [address] [place] [id number] * VANCOMYCIN LEVEL RANDOM (04/29/2019 6:44 AM DIRECTOR MEDIA) Vancomycin Random 10.5 ug/mL 04/29/2019 7:[address] [facility] Blood BLOOD SPECIMEN / Unknown Lab Venipuncture / Unknown 04/29/2019 6:44 AM DIRECTOR MEDIA 04/29/2019 6:51 AM DIRECTOR MEDIA Narrative [facility] - 04/29/2019 7:10 AM DIRECTOR MEDIA No reference range available for random Vancomycin levels. All results interpreted by ordering physician. 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 documented in this encounter Administered Medications Inactive Administered Medications - up to 3 most recent administrations Medication Order MAR Action Action Date Dose Rate Site 0.9% NaCl flush bag at 3 mL/hr, 250 mL, CONTINUOUS PRN, Starting on Tue05/02/19 at 0114, Until Tue05/06/19 at 1523, FLUSH BAG, Use for: IVPB flush $ New Bag/Syringe 05/06/2019 3:55 AM DIRECTOR MEDIA 250 mL 3 mL/hr $ New Bag/Syringe 05/04/2019 5:17 AM DIRECTOR MEDIA 250 mL 3 mL/h r $ New Bag/Syringe 05/02/2019 1:16 AM DIRECTOR MEDIA 250 mL 3 mL/h r 0.9% NaCl infusion ADS Med 1 dose, Starting on Tue04/29/19 at 0914, Until Tue04/29/19 at 0948, Created by cabinet override $ New Bag/Syringe 04/29/2019 9:48 AM DIRECTOR MEDIA 0.9% NaCl infusion rate and volume at 20 mL/hr, 250 mL, ONCE PRN, 1 dose, Starting on Tue05/02/19 at 1337, Until Tue05/06/19 at 1523, Normal Saline flush bag for blood and blood product administration 0.9% NaCl infusion rate and volume at 20 mL/hr, 250 mL, ONCE PRN, 1 dose, Starting on Tue05/02/19 at 1403, Until Tue05/06/19 at 1523, Normal Saline flush bag for blood and blood product administration 0.9% NaCl injection 1-10 mL 1-10 mL, Intracatheter, PRN, Other, peripheral line flush, Starting on Tue05/02/19 at 1337, Until Tue05/06/19 at 1523, Flush peripheral IV catheter with 1-10 mL of normal saline before and after medications and prn to clear blood from the line or to verify patency. 0.9% NaCl injection 3 mL 3 mL, Intracatheter, EVERY 8 HOURS, First dose on Tue05/02/19 at 1415, Until Discontinued, Flush peripheral IV catheter with 3 mL of normal saline every 8 hours. $ Given 05/05/2019 9:21 PM DIRECTOR MEDIA 3 mL $ Given 05/05/2019 1:20 PM DIRECTOR MEDIA 3 mL $ Given 05/05/2019 6:20 AM DIRECTOR MEDIA 3 mL acetaminophen (TYLENOL) tablet 650 mg 650 mg, Oral, EVERY 6 HOURS PRN, Mild Pain, Starting on Tue04/29/19 at 0545, Until Tue05/06/19 at 1523 $ Given 05/05/2019 9:18 PM DIRECTOR MEDIA 650 mg $ Given 05/04/2019 9:14 AM DIRECTOR MEDIA 650 mg $ Given 04/29/2019 4:40 PM DIRECTOR MEDIA 650 mg acetaminophen (TYLENOL) tablet 650 mg 650 mg, Oral, EVERY 4 HOURS PRN, Moderate Pain, Starting on Tue04/29/19 at 0755, Until Kellen 05/03/19 at 1222 $ Given 05/03/2019 9:49 AM DIRECTOR MEDIA 650 mg $ Given 05/01/2019 9:42 PM DIRECTOR MEDIA 650 mg $ Given 04/30/2019 8:35 PM DIRECTOR MEDIA 650 mg albuterol (PROVENTIL;VENTOLIN) (5 MG/ML) 0.5% nebulizer solution 2.5 mg 2.5 mg, Inhalation, 4 TIMES DAILY, First dose on Tue04/29/19 at 0900, Until Discontinued, Dilute prior to administration via nebulization. $ Given 05/06/2019 9:27 AM DIRECTOR MEDIA 2.5 mg $ Given 05/06/2019 1:27 AM DIRECTOR MEDIA 2.5 mg $ Given 05/05/2019 7:23 PM DIRECTOR MEDIA 2.5 mg pepojzeh-fflksgwip-hkctdcvhgpp (MAALOX;MYLANTA) suspension 15 mL 15 mL, Oral, EVERY 6 HOURS PRN, Heartburn, Starting on Tue05/04/19 at 1553, Until 05/06/19 at 1523, Shake well before using. $ Given 05/05/2019 9:33 PM DIRECTOR MEDIA 15 mL $ Given 05/04/2019 9:14 PM DIRECTOR MEDIA 15 mL $ Given 05/04/2019 6:16 PM DIRECTOR MEDIA 15 mL apixaban (ELIQUIS) tablet 5 mg 5 mg, Oral, 2 TIMES DAILY, First dose on Tue05/02/19 at 2100, Until Discontinued $ Given 05/06/2019 9:08 AM DIRECTOR MEDIA 5 mg $ Given 05/05/2019 9:19 PM DIRECTOR MEDIA 5 mg $ Given 05/05/2019 9:08 AM DIRECTOR MEDIA 5 mg budesonide-formoterol (SYMBICORT) 160-4.5 MCG/ACT inhaler 2 puff 2 puff, Inhalation, 2 TIMES DAILY, First dose on 04/29/19 at 0900, Until Discontinued, Rinse mouth after usage . WASTE DISPOSAL INSTRUCTION: Send to Pharmacy for Disposal. . $ Given 05/06/2019 9:39 AM DIRECTOR MEDIA 2 puffs $ Given 05/05/2019 7:25 PM DIRECTOR MEDIA 2 puffs $ Given 05/05/2019 7:52 AM DIRECTOR MEDIA 2 puffs bumetanide (BUMEX) tablet 0.5 mg 0.5 mg, Oral, 2 TIMES DAILY, First dose on Tue05/01/19 at 1100, Until Discontinued $ Given 05/06/2019 9:08 AM DIRECTOR MEDIA 0.5 mg $ Given 05/05/2019 4:37 PM DIRECTOR MEDIA 0.5 mg $ Given 05/05/2019 9:08 AM DIRECTOR MEDIA 0.5 mg diphenhydrAMINE (BENADRYL) capsule 25 mg 25 mg, Oral, EVERY 6 HOURS PRN, Itching, Starting on 04/29/19 at 0756, Until 05/06/19 at 1523 $ Given 05/06/2019 12:33 PM DIRECTOR MEDIA 25 mg $ Given 05/05/2019 9:19 PM DIRECTOR MEDIA 25 mg $ Given 05/05/2019 9:14 AM DIRECTOR MEDIA 25 mg diphenhydrAMINE-zinc acetate (BENADRYL EXTRA STRENGTH) 2-0.1 % cream Topical, PRN, Itching, Starting on Tue05/01/19 at 1305, Until 05/06/19 at 1523, Apply to bilateral periorbital areas $ Given 05/02/2019 11:35 AM DIRECTOR MEDIA $ Given 05/01/2019 9:44 PM DIRECTOR MEDIA $ Given 05/01/2019 4:53 PM DIRECTOR MEDIA docusate sodium (COLACE) capsule 100 mg 100 mg, Oral, DAILY, First dose on Tue05/03/19 at 1300, Until Discontinued $ Given 05/06/2019 9:09 AM DIRECTOR MEDIA 100 mg $ Given 05/05/2019 9:09 AM DIRECTOR MEDIA 100 mg $ Given 05/04/2019 9:14 AM DIRECTOR MEDIA 100 mg doxycycline monohydrate capsule 100 mg 100 mg, Oral, EVERY 12 HOURS, First dose on 05/06/19 at 0945, Until Discontinued, Indication for anti-infective therapy: Suspected infection, Site of anti-infective therapy: Skin/soft tissue $ Given 05/06/2019 9:56 AM DIRECTOR MEDIA 100 mg fentaNYL (PF) (SUBLIMAZE) injection 25 mcg 25 mcg, Intravenous, EVERY 4 HOURS PRN, Severe Pain, Starting on 04/29/19 at 0546, Until 05/06/19 at 1523 $ Given 05/03/2019 5:18 AM DIRECTOR MEDIA 25 mcg $ Given 05/03/2019 2:03 AM DIRECTOR MEDIA 25 mcg $ Given 05/02/2019 10:05 PM DIRECTOR MEDIA 25 mcg fentaNYL (PF) (SUBLIMAZE) injection 50 mcg 50 mcg, Intravenous, EVERY 3 MIN PRN, Mild Pain, 4 doses, Starting on 05/02/19 at 1528, Until 05/02/19 at 1648, Maximum total of 4 doses. If patient reaches max total dose, please consult anesthesiologist prior to further administration of pain meds. Hold pain meds if there are signs of hypoventilation., PACU $ Given 05/02/2019 3:48 PM DIRECTOR MEDIA 50 mcg $ Given 05/02/2019 3:38 PM DIRECTOR MEDIA 50 mcg hydrocortisone (DERMAREST) 1 % lotion Topical, 4 TIMES DAILY PRN, Itching, swelling, Starting on Tue05/02/19 at 0000, Until 05/06/19 at 1523, Apply to bilateral eyelids/periorbital areas. $ Given 05/02/2019 10:05 PM DIRECTOR MEDIA HYDROmorphone (DILAUDID) injection 0.5 mg 0.5 mg, Intravenous, EVERY 5 MIN PRN, Severe Pain, Starting on Tue05/02/19 at 1528, Until 05/02/19 at 1648, Maximum total of 4 doses If patient reaches max total dose, please consult anesthesiologist prior to further administration of pain meds. Hold pain meds if there are signs of hypoventilation., PACU $ Given 05/02/2019 4:03 PM DIRECTOR MEDIA 0.5 mg lactated ringers infusion at 75 mL/hr, Intravenous, CONTINUOUS, Starting on 05/02/19 at 0700, Until Kellen 05/03/19 at 1222 $ New Bag/Syringe 05/03/2019 2:05 AM DIRECTOR MEDIA 75 mL/hr $ New Bag/Syringe 05/02/2019 9:20 AM DIRECTOR MEDIA 75 mL/ hr metoprolol succinate XL 24hr (TOPROL XL) tablet 50 mg 50 mg, Oral, DAILY, First dose on 04/29/19 at 1730, Until Discontinued, May cut in half but do not crush or chew $ Given 05/06/2019 9:08 AM DIRECTOR MEDIA 50 mg $ Given 05/05/2019 9:09 AM DIRECTOR MEDIA 50 mg $ Given 05/04/2019 9:13 AM DIRECTOR MEDIA 50 mg oxyCODONE (immediate release) (ROXICODONE) tablet 10 mg 10 mg, Oral, EVERY 4 HOURS PRN, Moderate Pain, Starting on Kellen 05/03/19 at 1221, Until 05/06/19 at 1523, Moderate pain uncontrolled by tramadol $ Given 05/05/2019 7:27 AM DIRECTOR MEDIA 10 mg $ Given 05/03/2019 7:00 PM DIRECTOR MEDIA 10 mg $ Given 05/03/2019 12:40 PM DIRECTOR MEDIA 10 mg potassium chloride ER (KLOR-CON M) tablet 20 mEq 20 mEq, Oral, ONCE, 1 dose, On Tue05/04/19 at 1345, Do not crush or chew. $ Given 05/04/2019 3:45 PM DIRECTOR MEDIA 20 mEq potassium chloride ER (KLOR-CON M) tablet 40 mEq 40 mEq, Oral, ONCE, 1 dose, On 04/30/19 at 0900, Do not crush or chew. $ Given 04/30/2019 8:59 AM DIRECTOR MEDIA 40 mEq potassium chloride ER (KLOR-CON M) tablet 40 mEq 40 mEq, Oral, ONCE, 1 dose, On 05/05/19 at 0900, Do not crush or chew. $ Given 05/05/2019 9:14 AM DIRECTOR MEDIA 40 mEq potassium chloride ER (KLOR-CON M) tablet 40 mEq 40 mEq, Oral, 2 TIMES DAILY WITH MEALS, 2 doses, First dose on 05/06/19 at 0845, Last dose on 05/06/19 at 1800, Do not crush or chew. $ Given 05/06/2019 9:14 AM DIRECTOR MEDIA 40 mEq rifAMPin (RIFADIN) capsule 300 mg 300 mg, Oral, 3 TIMES DAILY, First dose on 04/29/19 at 2100, Until Discontinued, Should be given on an empty stomach, Indication for anti-infective therapy: Documented infection, Site of anti-infective therapy: Bone/Joint $ Given 05/06/2019 9:08 AM DIRECTOR MEDIA 300 mg $ Given 05/05/2019 9:19 PM DIRECTOR MEDIA 300 mg $ Given 05/05/2019 1:19 PM DIRECTOR MEDIA 300 mg tamsulosin (FLOMAX) capsule 0.4 mg 0.4 mg, Oral, AT BEDTIME, First dose on 04/29/19 at 2100, Until Discontinued, At the same time every day after a meal. Do not crush, chew $ Given 05/05/2019 9:19 PM DIRECTOR MEDIA 0.4 mg $ Given 05/04/2019 9:13 PM DIRECTOR MEDIA 0.4 mg $ Given 05/03/2019 10:02 PM DIRECTOR MEDIA 0.4 mg tiotropium (SPIRIVA RESPIMAT) 2.5 MCG/ACT inhaler 2 puff 2 puff, Inhalation, DAILY, First dose on 04/29/19 at 0900, Until Discontinued $ Given 05/06/2019 9:39 AM DIRECTOR MEDIA 2 puffs $ Given 05/05/2019 7:52 AM DIRECTOR MEDIA 2 puffs $ Given 05/04/2019 7:55 AM DIRECTOR MEDIA 2 puffs traMADol (ULTRAM) tablet 50 mg 50 mg, Oral, EVERY 6 HOURS PRN, Moderate Pain, Starting on 04/29/19 at 0546, Until 05/06/19 at 1523 $ Given 05/06/2019 9:09 AM DIRECTOR MEDIA 50 mg $ Given 05/05/2019 7:30 AM DIRECTOR MEDIA 50 mg $ Given 05/04/2019 9:13 PM DIRECTOR MEDIA 50 mg vancomycin HCl (VANCOCIN) 1,250 mg in 0.9% NaCl 250 mL IVPB 1,250 mg, at 200 mL/hr, Intravenous, EVERY 24 HOURS, First dose on 04/29/19 at 0900, Until Discontinued, Next vancomycin level due at 0800 on 05/01/19., Hold the following dose if the level is greater than 21 mcg/ml., , Indication for anti-infective therapy: Documented infection, Site of anti-infective therapy: Skin/soft tissue $ New Bag/Syringe 05/01/2019 11:04 AM DIRECTOR MEDIA 1,250 mg 200 mL/hr $ New Bag/Syringe 04/30/2019 8:54 AM DIRECTOR MEDIA 1,250 mg 200 mL /hr $ New Bag/Syringe 04/29/2019 9:00 AM DIRECTOR MEDIA 1,250 mg 200 mL /hr vancomycin HCl (VANCOCIN) 1,250 mg in 0.9% NaCl 250 mL IVPB 1,250 mg, at 200 mL/hr, Intravenous, EVERY 18 HOURS, First dose on Kellen 05/03/19 at 1800, Until Discontinued, Next vancomycin level due at 2100 on 05/06/19., Hold the following dose if the level is greater than 21 mcg/ml., , Indication for anti-infective therapy: Suspected infection, Site of anti-infective therapy: Bone/Joint $ New Bag/Syringe 05/06/2019 3:57 AM DIRECTOR MEDIA 1,250 mg 200 mL/hr $ New Bag/Syringe 05/05/2019 9:24 AM DIRECTOR MEDIA 1,250 mg 200 mL /hr $ New Bag/Syringe 05/04/2019 3:44 PM DIRECTOR MEDIA 1,250 mg 200 mL /hr vancomycin HCl (VANCOCIN) 1,500 mg in 0.9% NaCl 500 mL IVPB 1,500 mg, at 333.33 mL/hr, Intravenous, EVERY 18 HOURS, First dose on Tue05/02/19 at 0100, Until Discontinued, Next vancomycin level due at 1200 on 05/03. Hold the following dose if the level is greater than 21 mcg/mL., Indication for anti-infective therapy: Documented infection, Site of anti-infective therapy: Bone/Joint $ New Bag/Syringe 05/03/2019 3:15 PM DIRECTOR MEDIA 1,500 mg 333.33 mL/hr $ New Bag/Syringe 05/02/2019 8:38 PM DIRECTOR MEDIA 1,500 mg 333.33 mL/hr $ New Bag/Syringe 05/02/2019 1:20 AM DIRECTOR MEDIA 1,500 mg 333.33 mL/hr documented in this encounter Active and Recently Administered Medications Times are shown in DIRECTOR MEDIA. Scheduled Medication Order 05/04/2019 05/05/2019 05/06/2019 0.9% NaCl injection 3 mL(Linked Group 1) 3 mL, Intracatheter, EVERY 8 HOURS, First dose on Tue05/02/19 at 1415, Until Discontinued, Flush peripheral IV catheter with 3 mL of normal saline every 8 hours. 0459 (Bolus Current Bag/Med - Provider: Hoa Poe)1255 ($ Given - Provider: Nika Montoya RN)2116 ($ Given - Provider: Jayshree Gilliam) 0620 ($ Given - Provider: Jayshree Gilliam)1320 ($ Given - Provider: Alvino Monson RN)2121 ($ Given - Provider: Kristen Guadarrama RN) 0452 (Not Administered - Provider: Kristen Guadarrama RN - Reason: IV Currently Infusing)1400 (Due) albuterol (PROVENTIL;VENTOLIN) (5 MG/ML) 0.5% nebulizer solution 2.5 mg 2.5 mg, Inhalation, 4 TIMES DAILY, First dose on Tue04/29/19 at 0900, Until Discontinued, Dilute prior to administration via nebulization. 0312 ($ Given - Provider: Cee Boyce LAW FIRM CONSULTANT)0750 ($ Given - Provider: Guadalupe Her RCP)1441 ($ Given - Provider: Guadalupe Her LAW FIRM CONSULTANT)2113 ($ Given - Provider: Genevieve Crowder LAW FIRM CONSULTANT) 0138 ($ Given - Provider: Mily Simental LAW FIRM CONSULTANT)0752 ($ Given - Provider: Cleo Cota LAW FIRM CONSULTANT)1351 ($ Given - Provider: Cleo Cota LAW FIRM CONSULTANT)1923 ($ Given - Provider: Yoko Hale LAW FIRM CONSULTANT) 0127 ($ Given - Provider: Yoko Hale LAW FIRM CONSULTANT)0927 ($ Given - Provider: Tracy Goldsmith LAW FIRM CONSULTANT)1400 (Due) apixaban (ELIQUIS) tablet 5 mg 5 mg, Oral, 2 TIMES DAILY, First dose on Tue05/02/19 at 2100, Until Discontinued 0914 ($ Given - Provider: Nika Montoya RN)2112 ($ Given - Provider: Jayshree Gilliam) 09 ($ Given - Provider: Alvino Monson RN)211 ($ Given - Provider: Kristen Guadarrama RN) 0908 ($ Given - Provider: Alvino Monson RN) budesonide-formoterol (SYMBICORT) 160-4.5 MCG/ACT inhaler 2 puff 2 puff, Inhalation, 2 TIMES DAILY, First dose on Tue04/29/19 at 0900, Until Discontinued, Rinse mouth after usage . WASTE DISPOSAL INSTRUCTION: Send to Pharmacy for Disposal. . 075 ($ Given - Provider: Guadalupe Her RCP)2112 ($ Given - Provider: Genevieve Crowder, LAW FIRM CONSULTANT) 0752 ($ Given - Provider: Cleo Cota, LAW FIRM CONSULTANT)1925 ($ Given - Provider: Yoko Hale, LAW FIRM CONSULTANT) 0939 ($ Given - Provider: Tracy Goldsmith, LAW FIRM CONSULTANT) bumetanide (BUMEX) tablet 0.5 mg 0.5 mg, Oral, 2 TIMES DAILY, First dose on Tue05/01/19 at 1100, Until Discontinued 0914 ($ Given - Provider: Nika Montoya RN)1547 ($ Given - Provider: Nika Montoya RN) 0908 ($ Given - Provider: Alvino Monson RN)1637 ($ Given - Provider: Alvino Monson RN) 0908 ($ Given - Provider: Alvino Monson RN) docusate sodium (COLACE) capsule 100 mg 100 mg, Oral, DAILY, First dose on Tue05/03/19 at 1300, Until Discontinued 0914 ($ Given - Provider: Nika Montoya RN) 0909 ($ Given - Provider: Alvino Monson RN) 0909 ($ Given - Provider: Alvino Monson RN) doxycycline monohydrate capsule 100 mg 100 mg, Oral, EVERY 12 HOURS, First dose on 05/06/19 at 0945, Until Discontinued, Indication for anti-infective therapy: Suspected infection, Site of anti-infective therapy: Skin/soft tissue 0956 ($ Given - Provider: Alvino Monson RN) metoprolol succinate XL 24hr (TOPROL XL) tablet 50 mg 50 mg, Oral, DAILY, First dose on 04/29/19 at 1730, Until Discontinued, May cut in half but do not crush or chew 0913 ($ Given - Provider: Nika Montoya RN) 0909 ($ Given - Provider: Alvino Monson RN) 0908 ($ Given - Provider: Alvino Monson RN) potassium chloride ER (KLOR-CON M) tablet 20 mEq (COMPLETED) 20 mEq, Oral, ONCE, 1 dose, On Tue05/04/19 at 1345, Do not crush or chew. 1545 ($ Given - Provider: Nika Montoya RN) potassium chloride ER (KLOR-CON M) tablet 40 mEq (COMPLETED) 40 mEq, Oral, ONCE, 1 dose, On 05/05/19 at 0900, Do not crush or chew. 0914 ($ Given - Provider: Alvino Monson RN) potassium chloride ER (KLOR-CON M) tablet 40 mEq 40 mEq, Oral, 2 TIMES DAILY WITH MEALS, 2 doses, First dose on 05/06/19 at 0845, Last dose on 05/06/19 at 1800, Do not crush or chew. 0914 ($ Given - Provider: Alvino Monson RN) rifAMPin (RIFADIN) capsule 300 mg (CANCELED) 300 mg, Oral, 3 TIMES DAILY, First dose on 04/29/19 at 2100, Until Discontinued, Should be given on an empty stomach, Indication for anti-infective therapy: Documented infection, Site of anti-infective therapy: Bone/Joint 0913 ($ Given - Provider: Nika Montoya RN)1545 ($ Given - Provider: Nika Montoya RN)2113 ($ Given - Provider: Jayshree Gilliam) 0909 ($ Given - Provider: Alvino Monson RN)1319 ($ Given - Provider: Alvino Monson RN)2119 ($ Given - Provider: Kristen Guadarrama RN) 0908 ($ Given - Provider: Alvino Monson RN) tamsulosin (FLOMAX) capsule 0.4 mg 0.4 mg, Oral, AT BEDTIME, First dose on 04/29/19 at 2100, Until Discontinued, At the same time every day after a meal. Do not crush, chew 2112 ($ Given - Provider: Jayshree Gilliam) 211 ($ Given - Provider: Kristen Guadarrama RN) tiotropium (SPIRIVA RESPIMAT) 2.5 MCG/ACT inhaler 2 puff 2 puff, Inhalation, DAILY, First dose on 04/29/19 at 0900, Until Discontinued 0755 ($ Given - Provider: Guadalupe Her RCP) 0752 ($ Given - Provider: Cleo Cota RCP) 0939 ($ Given - Provider: Tracy Goldsmith RCP) vancomycin HCl (VANCOCIN) 1,250 mg in 0.9% NaCl 250 mL IVPB (CANCELED) 1,250 mg, at 200 mL/hr, Intravenous, EVERY 18 HOURS, First dose on Kellen 05/03/19 at 1800, Until Discontinued, Next vancomycin level due at 2100 on 05/06/19., Hold the following dose if the level is greater than 21 mcg/ml., , Indication for anti-infective therapy: Suspected infection, Site of anti-infective therapy: Bone/Joint 1427 (Not Administered - Provider: Nika Montoya RN - Reason: See Comments - Comment: retimed per pharmacy)1544 ($ New Bag/Syringe - Provider: Nika Montoya RN)1818 (Stopped - Provider: Nika Montoya RN) 0924 ($ New Bag/Syringe - Provider: Alvino Monson RN)1054 (Stopped - Provider: Alvino Monson RN) 0357 ($ New Bag/Syringe - Provider: Kristen Guadarrama RN)0514 (Stopped - Provider: Kristen Guadarrama RN) PRN Medication Order 05/04/2019 05/05/2019 05/06/2019 0.9% NaCl flush bag at 3 mL/hr, 250 mL, CONTINUOUS PRN, Starting on Tue05/02/19 at 0114, Until 05/06/19 at 1523, FLUSH BAG, Use for: IVPB flush 0517 ($ New Bag/Syringe - Provider: Hoa Poe) 0355 ($ New Bag/Syringe - Provider: Kristen Guadarrama RN) 0.9% NaCl infusion rate and volume at 20 mL/hr, 250 mL, ONCE PRN, 1 dose, Starting on Tue05/02/19 at 1337, Until 05/06/19 at 1523, Normal Saline flush bag for blood and blood product administration 0.9% NaCl infusion rate and volume at 20 mL/hr, 250 mL, ONCE PRN, 1 dose, Starting on Tue05/02/19 at 1403, Until 05/06/19 at 1523, Normal Saline flush bag for blood and blood product administration 0.9% NaCl injection 1-10 mL(Linked Group 1) 1-10 mL, Intracatheter, PRN, Other, peripheral line flush, Starting on Tue05/02/19 at 1337, Until 05/06/19 at 1523, Flush peripheral IV catheter with 1-10 mL of normal saline before and after medications and prn to clear blood from the line or to verify patency. acetaminophen (TYLENOL) tablet 650 mg 650 mg, Oral, EVERY 6 HOURS PRN, Mild Pain, Starting on 04/29/19 at 0545, Until 05/06/19 at 1523 0914 ($ Given - Provider: Nika Montoya RN) 211 ($ Given - Provider: Kristen Guadarrama, DONTAE) ttznzzdl-grfiahfsd-ybga thicone (MAALOX;MYLANTA) suspension 15 mL 15 mL, Oral, EVERY 6 HOURS PRN, Heartburn, Starting on Tue05/04/19 at 1553, Until 05/06/19 at 1523, Shake well before using. 181 ($ Given - Provider: Nika Montoya RN)2113 ($ Given - Provider: Jayshree Gilliam) 2132 ($ Given - Provider: Kristen Guadarrama RN) diphenhydrAMINE (BENADRYL) capsule 25 mg 25 mg, Oral, EVERY 6 HOURS PRN, Itching, Starting on 04/29/19 at 0756, Until 05/06/19 at 1523 0153 ($ Given - Provider: Jayshree Gilliam)0914 ($ Given - Provider: Alvino Monson, DONTAE)211 ($ Given - Provider: Kristen Guadarrama, DONTAE) 1233 ($ Given - Provider: Alvino Monson RN) diphenhydrAMINE-zinc acetate (BENADRYL EXTRA STRENGTH) 2-0.1 % cream Topical, PRN, Itching, Starting on Tu05/01/19 at 1305, Until 05/06/19 at 1523, Apply to bilateral periorbital areas fentaNYL (PF) (SUBLIMAZE) injection 25 mcg 25 mcg, Intravenous, EVERY 4 HOURS PRN, Severe Pain, Starting on 04/29/19 at 0546, Until 05/06/19 at 1523 hydrocortisone (DERMAREST) 1 % lotion Topical, 4 TIMES DAILY PRN, Itching, swelling, Starting on Tue05/02/19 at 0000, Until 05/06/19 at 1523, Apply to bilateral eyelids/periorbital areas. oxyCODONE (immediate release) (ROXICODONE) tablet 10 mg 10 mg, Oral, EVERY 4 HOURS PRN, Moderate Pain, Starting on Kellen 05/03/19 at 1221, Until 05/06/19 at 1523, Moderate pain uncontrolled by tramadol 0518 (Not Administered - Provider: Hoa Poe - Reason: Refused-Patient - Comment: with prior PRN administeration patient ask if I was giving him oxy. Upon bringing oxy to him this time, he refused. CSN observed wasted tabs) 0727 ($ Given - Provider: Alvino Monson, RN) traMADol (ULTRAM) tablet 50 mg 50 mg, Oral, EVERY 6 HOURS PRN, Moderate Pain, Starting on Tue04/29/19 at 0546, Until 05/06/19 at 1523 0523 (Not Administered - Provider: Hoa Poe - Reason: See Comments - Comment: duplicate scan 50 mg administered)0524 ($ Given - Provider: Hoa Poe)2113 ($ Given - Provider: Jayshree Gilliam) 0730 ($ Given - Provider: Alvino Monson, RN) 0909 ($ Given - Provider: Alvino Monson, RN) Linked Groups Order Group 1: SALINE LOCK, INSERT AND MAINTAIN (CANCELED) Routine, CONTINUOUS, Starting on Tue05/02/19 at 1345, Until Specified, New collection And 0.9% NaCl injection 3 mLJump to med 3 mL, Intracatheter, EVERY 8 HOURS, First dose on Tue05/02/19 at 1415, Until Discontinued, Flush peripheral IV catheter with 3 mL of normal saline every 8 hours. And 0.9% NaCl injection 1-10 mLJump to med 1-10 mL, Intracatheter, PRN, Other, peripheral line flush, Starting on Tue05/02/19 at 1337, Until 05/06/19 at 1523, Flush peripheral IV catheter with 1-10 mL of normal saline before and after medications and prn to clear blood from the line or to verify patency. 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
--- OUTSIDE RECORDS SUMMARY | 2024-05-24 23:37 | XMS_ITS | Encounter Summary ---
Author Organization [facility] Address [address] [place] [address] Care Team Providers Care Saas Architect Name Role Phone Briana Medeiros MD Primary Care Provider [phone] Reason for Visit * Auth/Cert Specialty Diagnoses / Procedures Referred By Contac t Referred To Contact Diagnoses Prosthetic Joint Infection Referral ID Status Reason Start Date Expiration Date Visits Re quested Visits Authorized [id number] 1 1 Encounter Details Date Type Department Care Team (Late st Contact Info) Description 05/02/2019 11:30 AM ASSEMBLY MACHINE SET UP MECHANIC - 05/02/2019 3:02 PM ASSEMBLY MACHINE SET UP MECHANIC Surgery [facility] PERIOPERATIVE [address] [place] [address] Larry Alexander MD [address] [address] IRRIGATION AND DEBRIDEMENT RIGHT HIP ABSCESS Surgery Details Date/Time Status Location OR Service Patient Class Case Class Case Type Trauma Case? 05/02/2019 11:30 AM Posted [facility] MAIN OR OR 03 Orthopedics Inpatient Elective > 5 days Panel 1 Procedure LRB Anes Op Region Wound Class Comments IRRIGATION AND DEBRIDEMENT R IGHT HIP ABSCESS Right General Hip Dirty or Infected PLACEMENT WOUND VAC Right General Hip Clean Surgeon Surgeon Role Service Panel Larry Alexander MD Primary Orthopedics 1 Special Needs NO REP NEEDED- 11-26-MAB### 004 ### NEEDS C-ARM documented in this encounter Social History Tobacco [...] Sign Reading Time Taken Comments Blood Pressure 133/76 05/02/2019 11:44 AM ASSEMBLY MACHINE SET UP MECHANIC Pulse 79 05/02/2019 11:44 AM ASSEMBLY MACHINE SET UP MECHANIC Temperature 36.6 ??C (97.8 ??F) 05/02/2019 11:[address] Respiratory Rate 18 05/02/2019 11:44 AM ASSEMBLY MACHINE SET UP MECHANIC Oxygen Saturation 99% 05/02/2019 11:44 AM ASSEMBLY MACHINE SET UP MECHANIC Inhaled Oxygen Concentration 21% 05/01/2019 1 0:19 AM ASSEMBLY MACHINE SET UP MECHANIC Weight 99.8 kg (220 lb) 04/29/2019 5:26 AM ASSEMBLY MACHINE SET UP MECHANIC Height 180.3 cm (5' 11 ) 04/29/2019 5:26 AM ASSEMBLY MACHINE SET UP MECHANIC Body Mass Index 30.68 04/29/2019 5:26 AM ASSEMBLY MACHINE SET UP MECHANIC documented in this encounter Functional Status Functional [...] ID Orthopedic surgery Hospital Course José Miguel Nia Keys??is a 68 yo male??with a history of CAD,??atrial fibrillation, COPD, cirrhosis, [place] and complex history of MRSA bacteremia and epidural abscess in 2017.He has a history of right total hip [...] 50 mg by mouth once daily NYSTOP 875046 UNIT/GM powder Generic drug: nystatin Apply to [...] ER 20 MEQ tablet Commonly known as: KLOR-CON M Take 20 mEq by mouth once [...] as needed vitamin D (ergocalciferol) 1.25 MG (15309 UT) capsule Commonly known as: DRISDOL Take [...] discharge diagnosis is: Abscess of right hip [6080046] Follow up with Primary Care Provider (PCP) [...] soaks. No scrubbing around incision. ?? Call [phone] to schedule the first follow-up appointment with [...] 35 minutes with coordination of care with CM/SW, consultants, and nurse, education, medication reconciliation, discharge summary, and counseling patient Kev Ordonez MD 05/06/2019 12:18 PM MBLY MACHINE SET UP MECHANIC documented in this encounter Discharge Instructions * Discharge Instructions* Alberto De Los Santos MD - 05/02/2019 3:34 PM ASSEMBLY MACHINE SET UP MECHANIC [facility] Orthopedic Adult Reconstruction Surgery Patient Discharge Instructions [...] dressing. Keep this intact for another week. Parrish and sutures are to be removed at first clinic visit at three weeks. After diogenes/sutures have been removed it is OK to shower but leave wound covered with a dressing in the shower. After shower, remove thewet dressing, pat dry, and apply antibiotic ointment over wound then place a clean dry dressing. - Anticoagulation: 4 weeks per medicine recommendations - Sutures/Diogenes: to be removed at three week clinic visit - Pain Medication: [place] Narcotic Medication Patient Information You are being discharged/sent home with a prescription(s) for narcotic pain medicine (examples: Oxycodone, Hydrocodone, Roxicodone, Percocet, Ravenna). Our goal is to control your pain, [...] Tylenol. - Many pain medicines (such as Ravenna or Percocet) also contain Tylenol/Acetaminophen (this is [...] all medicine bottles to office visits. Call [phone] to schedule the first follow-up appointment with Dr. Alexander in 3 week(s) or for any questions Alberto De Los Santos MD MBLY MACHINE SET UP MECHANIC documented in this encounter Medications at Time [...] daily 57 capsule 05/06/2019 08/28/2019 nystatin (MYCOSTATIN) 241637 UNIT/GM powder Apply to affected area 2 [...] as needed. 10/12/2023 vitamin D, ergocalciferol, (DRISDOL) 75418 UNITS capsuleIndications:Ot her cirrhosis of liver (HCC) Take 50,000 Units by mouth every 7 days 0 02/02/2018 03/21/2023 documented as of this encounter Progress Notes * Alberto Shell MD - 05/06/2019 10:01 AM CST [facility] Orthopedic Surgery Daily Progress Note José Miguel Keys, 68 year old, male : 1950 CSN: [id number] Primary Care Physician: Briana Medeiros MD - [...] results to clinic, c/o DONTAE Alonzo ( [facility]). Plan for 4 weeks of anticoagulation [...] soaks. No scrubbing around incision. ?? Call [phone] to schedule the first follow-up appointment with Dr. Alexander in 3 week(s) or for any questions Alberto Shell MD 05/06/2019 10:01 AM MBLY MACHINE SET UP MECHANIC * Azeb Dye RN - 05/06/2019 9:43 AM CST [facility] and faxed CLIF information to [phone] MBLY MACHINE SET UP MECHANIC * James Dasilva PharmD - 05/06/2019 9:32 AM CST This patient was on vancomycin per pharmacy protocol. This order has been discontinued by Dr. Ordonez.Pending levels and/or doses have been canceled. This entry for documentation and informational purposes only. James Dasilva PharmD MBLY MACHINE SET UP MECHANIC * Cheryl Mccoy PharmD - 05/06/2019 9:09 [...] to monitor and adjust as appropriate. Cheryl Mccoy PharmD 05/06/2019 9:09 AM Mondragon (Pt), Mike, PT - 05/06/2019 8:03 AM CST Physical Therapy Treatment Summary Chart review completed. Nursing consented for PT. Explained purpose of PT and patient consented to participate in therapy. 1. 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 Coronary artery disease without angina pectoris, unspecified vessel or lesion type, unspecified whether tunica-biloxi or transplanted heart 3. Chronic atrial fibrillation [...] and intact pre and post visit. RN, Alvino, notified of patient's performance/location end of session. [...] you, Mike Mondragon (Pt), PT x [phone] MBLY MACHINE SET UP MECHANIC * Alanna (Pt)Mike PT - 05/06/2019 8:02 AM CST [...] with w/w, WBAT R LE Outcome: Ongoing MBLY MACHINE SET UP MECHANIC * Kristen Guadarrama, RN - 05/06/2019 4:33 [...] monitor Kristen Guadarrama RN 05/06/2019 4:35 AM MBLY MACHINE SET UP MECHANIC * Yoko Hale RCP - 05/05/2019 7:27 PM CST Problem: Oxygenation/Respiratory Function Goal: Respiratory rate will be within normal limits for patient. Description José Miguel will achieve an even and unlabored respiratory pattern. Outcome: Ongoing José Miguel continues on scheduled nebulizer tx. Lungs sound diminished this shift. Will continue to monitor and wean as able. MBLY MACHINE SET UP MECHANIC * Kev Ordonez MD - 05/05/2019 1:38 [...] No data found. Recent Labs Component Name 05/05/195 05/03/19 0246 05/02/19 0410 05/01/19 0244 10/10/18 [...] interval not displayed. Recent Labs Component Name 05/05/1921429/19 0307 05/03/19 0246 05/02/19 0410 04/30/19 0242 02/03/19 0106 SODIUM 137 [...] 304* ALT - - - 26 - - 21 AST - - - 25 - 30 - 20 TBIL - - - 1.1 - 0.5 - 1.0 TPROT - - - 7.3 - 6.9 - 7.0 EGFR >60 >60 >60 >60 - >60 - 59 - = values in this interval not displayed. No results for input(s): MAGMGDL in the last 12414 hours. Recent Labs Component Name 09/19/17 0243 [...] (TYLENOL) tablet 650 mg, Oral, q6h PRN edwggelk-wxsycqffa-cuzmpkavdnc (MAALOX;MYLANTA) suspension 15 mL, Oral, q6h PRN [...] done in 05/01/2019 Allergies: PENICILLINS, LEVOFLOXACIN, SCOPOLAMINE Manufacturer Representative: Gómez Finch Referring Physician: Kev Ordonez MD [...] changes were blunted (less than 50% variation). MBLY MACHINE SET UP MECHANIC * Raysa Nevarez MD - 05/05/2019 12:06 [...] results for input(s): CDIFFTOXINAB in the last 32029 hours. Recent Labs Component Name 04/24/19 1141 SEDRATE 70* Recent Labs Component Name 04/24/19 1140 08/15/17 0348 08/09/17 0745 CRP 1.41* 4.1* 32.0* No results for input(s): CK in the last 80610 hours. .No results for input(s): VANCOTROUGH, VANCOPEAK, VANCSERIES in the last 35008 hours. Invalid input(s): VANCORAND Recent Labs Component [...] the spine with epidural abscess treated at [facility] [address] -- left THR Plan - will continue on vanc and rifampin with hardware in place - monitor labs On discharge the p.o. doxycycline for 2 weeks followed by chronic suppression daily Please be advised that part of this text was done using voice recognition software. Errors may havebeen missed upon review. Raysa Nevarez MD MBLY MACHINE SET UP MECHANIC * Kristie Martinez, PT - 05/05/2019 10:20 [...] discharge summary. Kristie Martinez, PT x [phone] MBLY MACHINE SET UP MECHANIC * Cheryl Mccoy, PharmD - 05/05/2019 9:41 [...] monitor and adjust as appropriate. Cheryl Mccoy, PharmNia 05/05/2019 9:41 AM MBLY MACHINE SET UP MECHANIC * Alberto Shell MD - 05/05/2019 8:54 AM CST [facility] Orthopedic Surgery Daily Progress Note José Miguel Keys, 68 year old, male : 1950 CSN: [id number] Primary Care Physician: Briana Medeiros MD - [...] results to clinic, c/o DONTAE Alonzo ( [facility]). Plan for 4 weeks of anticoagulation [...] soaks. No scrubbing around incision. ?? Call [phone] to schedule the first follow-up appointment with Dr. Alexander in 3 week(s) or for any questions Alberto Shell MD 05/05/2019 8:54 AM MBLY MACHINE SET UP MECHANIC * Cleo Cota RCP - 05/05/2019 7:56 AM CST Mr. Keys remains on scheduled neb tx's to maintain home regime therapy of 4x's daily.Cleo Cota, Respiratory Care Practitioner 05/05/2019 7:57 AM MBLY MACHINE SET UP MECHANIC * Jayshree Gilliam - 05/05/2019 4:25 AM [...] knowledge of self-care management skills Outcome: Ongoing MBLY MACHINE SET UP MECHANIC * Genevieve Crowder RCP - 05/04/2019 9:20 PM CST Problem: Oxygenation/Respiratory Function Goal: Patent airway Outcome: Ongoing Goal: Respiratory rate will be within normal limits for patient. Outcome: Ongoing Mr. Keys is taking Q 6 neb treatments along with BID inhalers,lung sounds are clear diminished. RTwill continue to monitor.Genevieve Crowder, Respiratory Care Practitioner 05/04/2019 9:21 PM MBLY MACHINE SET UP MECHANIC * Nika Montoya RN - 05/04/2019 7:02 PM CST Refused narc pain control. Tylenol has been effective. Aware of safety limitations. 1 person assistwith transfers and toileting for safety and assist with tubing. MBLY MACHINE SET UP MECHANIC * Nika Montoya RN - 05/04/2019 7:00 PM CST Shift report Pleasant today; Right sided IV infiltrated. (Odalis took care of this) Applied warm compress. He is worried about it. currently at bedside. New PRN order for mylanta at his request. 1 asssit (withwound vac) to transfer and toilet. MBLY MACHINE SET UP MECHANIC * Tammy Haynes OT - 05/04/2019 1:27 [...] ??? S/P PICC central line placement 02/13/2019 [facility] VAT R basilic ??? Seizures ??? Squamous cell carcinoma ??? 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 Pt's spouse is home and can help as needed. Home Situation: Type of Residence: Private Residence Lives with:: Spouse Home Structure: (tri level home) Steps to Enter: 1(from back door) Handrails: Indoor Ramp: No Primary Bedroom: Second Floor Primary Bathroom: First Floor Bathroom : Tub/Shower Combo Equipment At Home: Commode-Bedside;Walker-2 Wheeled;Walker-4 Wheeled with Seat;Wheelchair-Standard;Internal Controls Manager;Dressing Stick;Sock Aid(drop arm BSC) Prior Level of [...] on observation and clinical judgement): Feeding: Modified [place] Oral Facial Hygiene: Stand By Assist(limited endurance [...] visit, this serves as the discharge summary. MARIA DEL CARMEN Claros, OTR/L Ascom [phone] MBLY MACHINE SET UP MECHANIC * Nika Montoya RN - 05/04/2019 12:59 PM CST 1305 Medication flagged as too soon. Nora at pharmacy notified and to change time to 1600. Medication already Prepared. Insturctions given to disregard and a new one will be sent. MBLY MACHINE SET UP MECHANIC * PadillaSai, PT - 05/04/2019 12:11 PM CST Physical [...] discharge summary. Sai Padilla, PT x [phone] MBLY MACHINE SET UP MECHANIC * Fay Otero BIT SANDER - 05/04/2019 10:41 AM CST Social Work Progress Note Discharge Plan Disposition[facility] SN[facility] Transportation: Transportation at discharge: Family Anticipated Discharge Date: Anticipated Discharge Date: 05/03/19 Contacts: Trinity Keys, spouse, Comments: None CHRIS Herrera [phone] MBLY MACHINE SET UP MECHANIC * Tammy Haynes OT - 05/04/2019 9:44 AM CST Occupational therapy orders received; chart review completed. Unable to complete visit due to pt eating breakfast (just started). Will attempt to see patient at a later date/time as OT schedule allows. Tammy Haynes OTD, OTR/L Ascom [phone] MBLY MACHINE SET UP MECHANIC * Michelle Pratt MD - 05/04/2019 9:30 [...] Pulse: 82 78 106 98 Resp: 18 18 Temp: 98.7 ??F (37.1 ??C) 98.1 [...] - 101 CO2 27 24 27 - - 25 BUN 19 16 - - 19 CREATININE 1.12 1.04 1.13 - 1.00 - 1.22* GLUCOSE 107* 86 98 - 101 - 112* CALCIUM 9.1 9.4 9.4 - 9.5 - 9.5 ALBUMIN - - 3.6 - 3.5 - 3.1* ALKPHOS - - 211* - 188* - 304* ALT - - 26 - 27 - 21 AST - - 25 - 30 - 20 TBIL - - 1.1 - 0.5 - 1.0 TPROT - - 7.3 - 6.9 - 7.0 EGFR >60 >60 >60 - >60 - 59 - = values in this interval not displayed. No results for input(s): MAGMGDL in the last 37011 hours. Recent Labs Component Name 09/19/17 0243 [...] (TYLENOL) tablet 650 mg, Oral, q6h PRN wryqcwxg-dymsapdma-hfciofegcqi (MAALOX;MYLANTA) suspension 15 mL, Oral, q6h PRN [...] done in 05/01/2019 Allergies: PENICILLINS, LEVOFLOXACIN, SCOPOLAMINE Manufacturer Representative: Gómez Finch Referring Physician: Kev Ordonez MD [...] changes were blunted (less than 50% variation). MBLY MACHINE SET UP MECHANIC * Sumaya, Alberto Dhillon MD - 05/04/2019 8:55 AM CST [facility] Orthopedic Surgery Daily Progress Note José Miguel Keys, 68 year old, male : 1950 CSN: [id number] Primary Care Physician: Briana Medeiros MD - [...] results to clinic, c/o DONTAE Alonzo ( [facility]). Plan for 4 weeks of anticoagulation [...] soaks. No scrubbing around incision. ?? Call [phone] to schedule the first follow-up appointment with Dr. Alexander in 3 week(s) or for any questions Alberto Shell MD 05/04/2019 8:56 AM MBLY MACHINE SET UP MECHANIC * Raysa Nevarez MD - 05/04/2019 7:11 [...] 122/76 Pulse: 80 82 Resp: 20 20 18 Temp: 98.7 ??F (37.1 [...] results for input(s): CDIFFTOXINAB in the last 59177 hours. Recent Labs Component Name 04/24/19 1141 SEDRATE 70* Recent Labs Component Name 04/24/19 1140 08/15/17 0348 08/09/17 0745 CRP 1.41* 4.1* 32.0* No results for input(s): CK in the last 41134 hours. .No results for input(s): VANCOTROUGH, VANCOPEAK, VANCSERIES in the last 61144 hours. Invalid input(s): VANCORAND Recent Labs Component [...] the spine with epidural abscess treated at [facility] [address] -- left THR Plan - will continue on vanc and rifampin with hardware - monitor labs discussed with Dr. Pratt Please be advised that part of this text was done using voice recognition software. Errors may havebeen missed upon review. Raysa Nevarez MD MBLY MACHINE SET UP MECHANIC * Hoa Poe - 05/04/2019 5:34 AM CST During prior administration of pain medication patient inquired if I was given him Oxy for his pain. Orginally financial underwriter had administered tramadol alternating with tylenol. Upon this last request patient seemed to be in a little more discomfort, with bowel, movement, he then asked for pain medication.Liver Trimmer pulled oxy for the pain better adhere patient pain needs, medication was scanned and when heasked what he was getting financial underwriter explained that oxy was stronger and would [...] prefers to alternate with tramadol,tylenol or Bufferin. MBLY MACHINE SET UP MECHANIC * Cee Boyce RCP - 05/04/2019 5:12 AM CST José Miguel Keys is maintaining a patent airway. His [...] Boyce, Respiratory Care Practitioner 05/04/2019 5:15 AM MBLY MACHINE SET UP MECHANIC * Hoa Poe - 05/04/2019 5:02 AM [...] knowledge of self-care management skills Outcome: Ongoing MBLY MACHINE SET UP MECHANIC * Nika Montoya RN - 05/03/2019 4:30 PM CST Shift Report Resident pleasant and cooperative this shift. at bedside this evening. Biggest issue today waspain management. Provider requested patient have pain meds alternated every 2 hours and also increased avail. I had difficulty with the pump today but the vanc was administered. Swelling to eyes has improved today. MBLY MACHINE SET UP MECHANIC * Nika Montoya RN - 05/03/2019 4:16 [...] shift. More effective pain control. Continue goal. MBLY MACHINE SET UP MECHANIC * Eula Verma RCP - 05/03/2019 1:56 PM CST Problem: Oxygenation/Respiratory Function Goal: Patent airway Note: José Miguel continues on scheduled nebulizer tx. Lungs sound diminished this shift. Will continue to monitor and wean as able MBLY MACHINE SET UP MECHANIC * Brenden Ellis PharmD - 05/03/2019 12:15 PM CST Vancomycin Per Pharmacy (Day 5) 68 year old male receiving vancomycin 1250 mg IV q18h for the management of infected right ARNALDO. ID is following. Other Anti-infectives: Rifampin Vitals: Height: 5' 11 (180.3 cm) (04/29/19525) Weight: 99.8 kg (220 lb) (04/29/19525) Temp (24hrs) Max:98.4 ??F (36.9 ??C) Current Labs: Recent Labs Component Name 05/03/19 0246 05/02/19 7910 05/01/19 0244 BUN 16 20 25 CREATININE 1.04 1.13 [...] needed. Brenden Ellis, PharmD 05/03/2019 2:16 PM MBLY MACHINE SET UP MECHANIC * Michelle Pratt MD - 05/03/2019 12:14 [...] 211* - 188* - 304* ALT - 26 - 27 - 21 AST - 25 - 30 - 20 TBIL - 1.1 - 0.5 - 1.0 TPROT - 7.3 - 6.9 - 7.0 EGFR >60 >60 >60 >60 - 59 - = values in this interval not displayed. No results for input(s): MAGMGDL in the last 49536 hours. Recent Labs Component Name 09/19/17 0243 [...] done in 05/01/2019 Allergies: PENICILLINS, LEVOFLOXACIN, SCOPOLAMINE Manufacturer Representative: Gómez Finch Referring Physician: Kev Ordonez MD [...] changes were blunted (less than 50% variation). MBLY MACHINE SET UP MECHANIC * Wendy Cid, PT - 05/03/2019 10:54 AM CST Physical Therapy Treatment Today's Date: 05/03/2019 Patient Name: José Miguel Keys Referring Physician:Michelle Pratt MD Referral Diagnosis: 1. 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 Coronary artery disease without angina pectoris, unspecified vessel or lesion type, unspecified whether tunica-biloxi or transplanted heart 3. Chronic atrial fibrillation 4. Diagnosis unknown PT Referral: evaluation and treatment Precaution/ Restrictions: Falls and WBAT R LE at present time History of Present Illness: Patient is a 68 y/o male who was admitted from home to [facility] on 04/29/19 with dx of: infected right total hip arthroplasty and persistent wound drainage s/p 9/5 right hip I&D, head and spacer exchange [...] Technique(min-mod assist of 1 person, primarily forR GENNA mvmt) Sit to Supine: Activity Does Not [...] Ambulation: Gait Deviations: Antalgic;Base of Support - Increased;Benrarda - Decreased;Heel Strike -Decreased;Increased Trunk Flexion;Increased Weight [...] acute care hospital athome with HHPT & / care vs IP Acute Rehab to maximize functional mobility/gait, strength, endurance, and balance, pending progress and LOS in acute care hospital. If this is the last physical therapy visit, this serves as the discharge summary. Thank you for referring this patient for skilled PT services. Wendy Pereira PT, DPT Ascom #[phone] MBLY MACHINE SET UP MECHANIC * Raysa Nevarez MD - 05/03/2019 9:25 [...] results for input(s): CDIFFTOXINAB in the last 24789 hours. Recent Labs Component Name 04/24/19 1141 SEDRATE 70* Recent Labs Component Name 04/24/19 1140 08/15/17 0348 08/09/17 0745 CRP 1.41* 4.1* 32.0* No results for input(s): CK in the last 85813 hours. .No results for input(s): VANCOTROUGH, VANCOPEAK, VANCSERIES in the last 21644 hours. Invalid input(s): VANCORAND Recent Labs Component [...] the spine with epidural abscess treated at [facility] [address] -- left THR Plan - will continue on vanc and rifampin with hardware - monitor labs discussed with Dr. Alexander yesterday Please be advised that part of this text was done using voice recognition software. Errors may havebeen missed upon review. Raysa Nevarez MD MBLY MACHINE SET UP MECHANIC * Leslye Montgomery RN - 05/03/2019 5:31 [...] reach. Leslye Montgomery RN 05/03/2019 5:32 AM MBLY MACHINE SET UP MECHANIC * Alberto Shell MD - 05/03/2019 2:22 AM CST [facility] Orthopedic Surgery Daily Progress Note José Miguel Keys, 68 year old, male : 1950 CSN: [id number] Primary Care Physician: Briana Medeiros MD - [...] results to clinic, c/o DONTAE Alonzo ( [facility]). Plan for 4 weeks of anticoagulation [...] soaks. No scrubbing around incision. ?? Call [phone] to schedule the first follow-up appointment with Dr. Alexander in 3 week(s) or for any questions Alberto Shell MD 05/03/2019 9:32 AM MBLY MACHINE SET UP MECHANIC * Leslye Montgomery RN - 05/03/2019 12:35 AM CST Problem: Pain/Discomfort Goal: Patient uses pharmacological and non-pharmacological pain management strategies. Outcome: Ongoing Pain moderately controlled with PRN Fentanyl. Problem: Oxygenation/Respiratory Function Goal: Respiratory rate will be within normal limits for patient. Outcome: Ongoing RR and O2 sats WNL. MBLY MACHINE SET UP MECHANIC * Amadna Merritt RN - 05/02/2019 4:25 PM CST Called down to waiting room. No family present. MBLY MACHINE SET UP MECHANIC * Alberto De Los Santos MD - 05/02/2019 3:27 PM CST [facility] Orthopedic Surgery Postoperative Check José Miguel Keys, 68 year old, male : 1950 CSN: [id number] Admitted: 04/29/2019 5:18 AM Subjective Nausea/vomiting: none [...] De Los Santos MD 05/02/2019 3:27 PM MBLY MACHINE SET UP MECHANIC * Kev Ordonez MD - 05/02/2019 2:55 [...] 133/76 Pulse: 80 74 93 79 Resp: 20 18 18 18 Temp: 97.5 ??F (36.4 ??C) 97.8 ??F [...] CHLORIDE 102 106 105 - 101 CO2 27 26 26 - 25 BUN 20 25 24 - 19 CREATININE 1.13 1.04 1.00 - 1.22* GLUCOSE 98 89 101 - 112* CALCIUM 9.4 9.8 9.5 - 9.5 ALBUMIN 3.6 - 3.5 - 3.1* ALKPHOS 211* - 188* - 304* ALT 26 - 27 - 21 AST 25 - 30 - 20 TBIL 1.1 - 0.5 - 1.0 TPROT 7.3 - 6.9 - 7.0 EGFR >60 >60 >60 - 59 - = values in this interval not displayed. No results for input(s): MAGMGDL in the last 09263 hours. Recent Labs Component Name 09/19/17 0243 [...] Feel free to text page me through [employer], login smsl MBLY MACHINE SET UP MECHANIC * Tammy Haynes OT - 05/02/2019 1:05 PM CST Occupational therapy orders received; chart review completed. Unable to complete visit due to pt MIRYAM for R I&D, hardware removal, and antibiotic spacer placement. Will attempt to see patient at alater date/time as OT schedule allows. Tammy Haynes OTD, OTR/L Ascom [phone] MBLY MACHINE SET UP MECHANIC * Des Pereira Wendy Alissa, PT - 05/02/2019 11:30 AM CST Physical Therapy Treatment Today's Date: 05/02/2019 Patient Name: José Miguel Keys Referring Physician:Kev Ordonez MD Referral Diagnosis: 1. 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 Coronary artery disease without angina pectoris, unspecified vessel or lesion type, unspecified whether tunica-biloxi or transplanted heart 3. Chronic atrial fibrillation 4. Diagnosis unknown PT Referral: evaluation and treatment Precaution/ Restrictions: Falls and WBAT R LE at present time History of Present Illness: Patient is a 68 y/o male who was admitted from home to [facility] on 04/29/19 with dx of: infected right total hip arthroplasty and persistent wound drainage s/p 02/08 right hip I&D, head and spacer exchange . SUBJECTIVE: Patient seen at [facility] on 2E this AM for skilled PT [...] for skilled PT treatment sitting upright in [facility] chitx on room air in no apparent distress [...] services. Wendy Pereira, PT, DPT As[facility] #[id number] MBLY MACHINE SET UP MECHANIC * Fay Otero BIT SANDER - 05/02/2019 11:29 AM CST Case reviewed with RN/CM during morning huddle. Per huddle pt will need some level of rehab at d/c.Pt scheduled for surgery to remove hardware and cement spacer to be placed. BIT SANDER will continue to f/u and coordinate MBLY MACHINE SET UP MECHANIC * Raysa Nevarez MD - 05/02/2019 9:47 [...] 132/72 Pulse: 79 80 74 93 Resp: 18 20 18 18 Temp: 97.4 ??F (36.3 ??C) 97.5 ??F [...] Recent Labs Component Name 05/02/190 05/01/194 04/30/19 0242 WBC 6.6 7.2 7.9 HGB 10.8* 10.6* 10.5* HCT 36.7 35.6 35.3 PLTCOUNT 143* 148* 159 Recent Labs Component Name 05/02/1940905/01/19 0244 04/30/19 024 SODIUM 138 141 138 POTASSIUM 3.6 4.7 3.4* CHLORIDE 102 106 105 CO2 27 26 26 BUN 20 25 24 CREATININE 1.13 1.04 1.00 GLUCOSE 98 89 101 CALCIUM 9.4 9.8 9.5 Recent Labs Component Name 05/02/19 0410 04/30/19 0242 02/03/19 0106 ALBUMIN 3.6 3.5 3.1* ALKPHOS 211* 188* 304* ALT 26 27 21 AST 25 30 20 TBIL 1.1 0.5 1.0 TPROT 7.3 6.9 7.0 No results for input(s): CDIFFTOXINAB in the last 13009 hours. Recent Labs Component Name 04/24/19 1141 SEDRATE 70* Recent Labs Component Name 04/24/19 1140 08/15/17 0348 08/09/17 0745 CRP 1.41* 4.1* 32.0* No results for input(s): CK in the last 29269 hours. .No results for input(s): VANCOTROUGH, VANCOPEAK, VANCSERIES in the last 33330 hours. Invalid input(s): VANCORAND Recent Labs Component [...] the spine with epidural abscess treated at [facility] [address] -- left THR Plan --surgery - will continue on vanc based on prior cx and rifampin with hardware - monitor labs Discussed with Discussed diet Please be advised that part of this text was done using voice recognition software. Errors may havebeen missed upon review. Raysa Nevarez MD MBLY MACHINE SET UP MECHANIC * Larry Alexander MD - 05/02/2019 6:23 AM CST Images from the original note were not included. [facility] Orthopedic Surgery Daily Progress Note José Miguel Keys, 68 year old, male : 1950 CSN: [id number] Primary Care Physician: Briana Medeiros MD - [...] 30.68 kg/m2 Labs Recent Labs Component Name 05/02/1940905/01/19 0244 04/30/19 0242 WBC 6.6 7.2 7.9 HGB 10.8* 10.6* 10.5* HCT 36.7 35.6 35.3 PLTCOUNT 143* 148* 159 Recent Labs Component Name 04/30/19 0242 02/15/19 0307 02/14/19 0346 INR 1.1 1.9* 1.9* Cultures Microbiology Results (Displays last 21 days for this encounter ONLY) Procedure Component Value - Date/Time CULTURE MRSA [[id number]] (Normal) Collected: 04/29/192140 Lab Status: Final result Specimen: Micro from Rectum Updated: 05/01/19523 Culture Negative for methicillin-resistant Staphylococcus aureus (MRSA) CULTURE VRE [[id number]] (Abnormal) Collected: 04/29/192140 Lab Status: Final result Specimen: Micro from Rectum Updated: 05/01/19 0609 Culture Growth of Enterococcus species vancomycin-resistant (VRE) Narrative: For vancomycin-resistant enterococci (VRE), contact precautions are required. For any questions, call Infection Prevention. CULTURE ABSCESS+GRAM STAIN [[id number]] (Normal) Collected: 04/29/192140 Lab Status: Preliminary result Specimen: Micro from Hip Updated: 05/01/19 1427 Culture Culture in progress Gram Stain Rare Polymorphonuclear cells No organisms seen CULTURE BLOOD [[id number]] Collected: 04/29/191908 Lab Status: Preliminary result Specimen: Blood Peripheral Updated: 05/01/192199 Culture No growth CULTURE BLOOD [[id number]] Collected: 04/29/191908 Lab Status: Preliminary result Specimen: Blood Peripheral Updated: 05/01/192199 Culture No growth CULTURE MRSA [[id number]] (Abnormal) Collected: 04/29/191755 Lab Status: Final result [...] by mouth once daily ??? nystatin (NYSTOP) 204094 UNIT/GM powder Apply to affected area 2 [...] as needed. ??? vitamin D, ergocalciferol, (DRISDOL) 72760 UNITS capsule Take 50,000 Units by mouth [...] ??? S/P PICC central line placement 02/13/2019 [facility] VAT R basilic ??? Seizures ??? Squamous [...] Please see resident's note for further details. MBLY MACHINE SET UP MECHANIC * Clarice Carver RN - 05/02/2019 6:06 AM CST Pt. A & O x 4, c/o right hip pain, prn meds provided, up adlib with walker to bathroom,on cpap @ bedtime,NPO since midnight, reminded to call for any assistance, call light within easy reach. MBLY MACHINE SET UP MECHANIC * Genevieve Crowder RCP - 05/02/2019 1:36 AM CST Problem: Oxygenation/Respiratory Function Goal: Patent airway Outcome: Ongoing Goal: Patient exhibits no evidence of increased respiratory distress Outcome: Ongoing Mr. Keys is taking Q 6 neb treatments along with his HCPAP, RT will continue to monitor.Genevieve Crowder, Respiratory Care Practitioner 05/02/2019 1:37 AM MBLY MACHINE SET UP MECHANIC * Clarice Carver RN - 05/01/2019 9:45 [...] (Comment) Recommended Access Route: PO Outcome: Ongoing MBLY MACHINE SET UP MECHANIC * Efrain Rojas RN - 05/01/2019 8:06 PM CST Shift summary: patient up to recliner chair, pain med given as ordered, oint applied to both eyes due to redness and itching,l hip dressing intact appetite good, family at bedside, call light and phone within reach. MBLY MACHINE SET UP MECHANIC * Efrain Rojas RN - 05/01/2019 5:07 PM CST Resp Therapy notified to complete EKG this evening, but realized it was already completed. MBLY MACHINE SET UP MECHANIC * eKv Ordonez MD - 05/01/2019 3:22 PM CST Admit Date: 04/29/2019 5:18 AM Hospital Day: 2 Clinical Course José Miguel Keys is a [...] results for input(s): MAGMGDL in the last 38960 hours. Recent Labs Component Name 09/19/17 0243 [...] Feel free to text page me through [employer], login smsl MBLY MACHINE SET UP MECHANIC * Bryanna Jc, PharmD - 05/01/2019 1:36 [...] Will change regimen to 1500mg q18h. Will obtaina vancomycin level on 05/03. Will continue to monitor and will adjust regimen if necessary. Bryanna Jc PharmD MBLY MACHINE SET UP MECHANIC * Fay Otero, BIT SANDER - 05/01/2019 1:23 PM CST CASE reviewed during MDR rounds. PER rounds pt will need some level of rehab at d/c. BIT SANDER will continue to follow and coordinate d/c. MBLY MACHINE SET UP MECHANIC * Paz Chen RN - 05/01/2019 1:21 [...] during the day. He is established with [facility]. Patient has had several rehab stays since his original hip replacement. He lives in [facility]. He will consider acute rehab [facility] if necessary. Patient does not know if he willneed home iv anbx. Patient does know he will be 3 months NWB L le. Patient states he will be hospitalized for 2 weeks. Cm informed patient he may not need to stay that long Patient is a [place] with 100% disability. 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 Basic Needs Assessment (BNA) Score: 9 Complex Needs Assessment (CHEF DE CUISINE) Score: 10 Social Support Domain Score: 2 [...] Medications: Transportation: Name: Paz Chen RN Phone: [phone] MBLY MACHINE SET UP MECHANIC * Wendy Cid, PT - 05/01/2019 11:18 AM CST Physical Therapy Initial Evaluation Today's Date: 05/01/2019 Patient Name: José Miguel Keys Referring Physician:Kev Ordonez MD Referral Diagnosis: 1. 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 Coronary artery disease without angina pectoris, unspecified vessel or lesion type, unspecified whether tunica-biloxi or transplanted heart 3. Chronic atrial fibrillation [...] ??? S/P PICC central line placement 02/13/2019 [facility] VAT R basilic ??? Seizures ??? Squamous [...] puffy, itchy ??? Scopace [Scopolamine] Other and SENIOR IOS DEVELOPER Dysfunction delirium History of Present Illness: Patient is a 68 y/o male who was admitted from home to [facility] on 04/29/19 with dx of: infected right [...] care will be discussed with Physical Therapist Hot Plate Plywood Press Laborer(s) who will be assisting withtreatments. If this is the last Physical Therapy visit, this serves as the discharge summary. Thank you for referring this patient for skilled PT services. Wendy Pereira, PT, DPT Ascom #[id number] MBLY MACHINE SET UP MECHANIC * Alanna (Ot)Mike OT - 05/01/2019 10:38 [...] later date/time if schedule permits. Thank you, GWEN PadgettR/Alissa Ascom#[id number] MBLY MACHINE SET UP MECHANIC * Ryasa Nevarez MD - 05/01/2019 8:44 AM CST [...] Once Data Recent Labs Component Name 05/01/19 02404/30/1924102/15/19 0307 WBC 7.2 7.9 8.5 HGB 10.6* 10.5* 7.4* HCT 35.6 35.3 25.0* PLTCOUNT 148* 159 284 Recent Labs Component Name 05/01/19 02404/30/1924104/29/19 0644 SODIUM 141 138 140 POTASSIUM 4.7 [...] results for input(s): CDIFFTOXINAB in the last 97349 hours. Recent Labs Component Name 04/24/19 1141 SEDRATE 70* Recent Labs Component Name 04/24/19 1140 08/15/17 0348 08/09/17 0745 CRP 1.41* 4.1* 32.0* No results for input(s): CK in the last 41601 hours. .No results for input(s): VANCOTROUGH, VANCOPEAK, VANCSERIES in the last 23091 hours. Invalid input(s): VANCORAND Recent Labs Component Name 02/03/19 01007/14/17 2212 HGBA1C 5.8 6.3 Recent Labs Component [...] the spine with epidural abscess treated at [facility] [address] -- left THR Plan --surgery tomorrow - will continue on vanc based on prior cx and rifampin with hardware - monitor labs Please be advised that part of this text was done using voice recognition software. Errors may havebeen missed upon review. Raysa Nevarez MD MBLY MACHINE SET UP MECHANIC * Alberto De Los Santos MD - 05/01/2019 7:30 AM CST Images from the original note were not included. [facility] Orthopedic Surgery Daily Progress Note José Miguel Keys, 68 year old, male : 1950 CSN: [id number] Primary Care Physician: Briana Medeiros MD - [...] Procedure Component Value - Date/Time CULTURE MRSA [[id number]] (Normal) Collected: 04/29/192140 Lab Status: Final result Specimen: Micro from Rectum Updated: 05/01/19523 Culture Negative for methicillin-resistant Staphylococcus aureus (MRSA) CULTURE VRE [[id number]] (Abnormal) Collected: 04/29/192140 Lab Status: Final result Specimen: Micro from Rectum Updated: 05/01/19 06 Culture Growth of Enterococcus species vancomycin-resistant (VRE) Narrative: For vancomycin-resistant enterococci (VRE), contact precautions are required. For any questions, call Infection Prevention. CULTURE ABSCESS+GRAM STAIN [[id number]] Collected: 04/29/192140 Lab Status: Preliminary result Specimen: Micro from Hip Updated: 04/30/19627 Gram Stain Rare Polymorphonuclear cells No organisms seen CULTURE BLOOD [[id number]] Collected: 04/29/191908 Lab Status: Preliminary result Specimen: Blood Peripheral Updated: 04/30/192199 Culture No growth 24 hours CULTURE BLOOD [[id number]] Collected: 04/29/191908 Lab Status: Preliminary result Specimen: Blood Peripheral Updated: 04/30/192199 Culture No growth 24 hours CULTURE MRSA [[id number]] (Abnormal) Collected: 04/29/191755 Lab Status: Final result [...] De Los Santos MD 05/01/2019 7:30 AM MBLY MACHINE SET UP MECHANIC * Lani Gomez RN - 05/01/2019 4:57 [...] Will continue to monitor. Lani Gomez rn MBLY MACHINE SET UP MECHANIC * Karina Slaughter RN - 04/30/2019 7:33 [...] monitor. Karina Slaughter RN 04/30/2019 7:36 PM MBLY MACHINE SET UP MECHANIC * Kev Ordonez MD - 04/30/2019 5:20 [...] - 20* BUN 24 30* 17 - 19 - 21 CREATININE 1.00 1.14 1.02 - [...] results for input(s): MAGMGDL in the last 18882 hours. Recent Labs Component Name 09/19/17 0243 [...] Feel free to text page me through [employer], login smsl MBLY MACHINE SET UP MECHANIC * Azeb Dye RN - 04/30/2019 3:06 PM CST Case Management Initial Assessment Case Management screen completed & Welcome Letter given. 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 Recurrent wound dehiscence with drainage. Poss sx. Basic Needs Assessment (BNA) Score: 9 Complex Needs Assessment (CHEF DE CUISINE) Score: 10 Social Support Domain Score: 2 Medical Status and Health Trajectory Domain Score: 8 Medical Home and Access to Services Domain Score: 0 Recommended Interventions for Patient:: [place] Manager, Palliative Care, Physical Therapy, Occupational Therapy and Nutritional Services Comment: pt will need HHC order if to d/c home. Nutrition consulted. Awaiting POC to determine needs. Met with patient Lives with: Spouse Family Support (name and phone): Extended Emergency Contact Information Primary Emergency Contact: Trinity Keys [address]: [address] [place] [address] [place] [address] [facility] Mobile Relation: Spouse Machine Specialist needed? No Anticipated Discharge Date: 05/03/19 Prior Level of Functioning: Anticipated level of care at discharge: Comment: TBD Transportation at Discharge: Family Transportation to MD appointments:Family Equipment at Home: walker Additional equipment needed at home but does not have: TBD If no PCP, action taken: n/s Pharmacy benefit: Yes [place] Manager Referral: Not at this time If patient requires HHC at discharge, he/she requests: Pt's verified [facility] Will continue to follow. For any questions or needs please contact: Instructor Industrial Design Name/Phone number: Azeb Dye RN [phone] MBLY MACHINE SET UP MECHANIC * Raysa Nevarez MD - 04/30/2019 12:59 [...] Oral, Once Data Recent Labs Component Name 04/30/19 0242 02/15/19 0307 02/14/19 0258 WBC 7.9 8.5 9.6 HGB 10.5* 7.4* 7.7* HCT 35.3 25.0* 26.0* PLTCOUNT 159 284 288 Recent Labs Component Name 04/30/19 0242 04/29/19 0644 02/15/19 0307 SODIUM 138 140 141 [...] results for input(s): CDIFFTOXINAB in the last 08215 hours. Recent Labs Component Name 04/24/19 1141 SEDRATE 70* Recent Labs Component Name 04/24/19 1140 08/15/17 0348 08/09/17 0745 CRP 1.41* 4.1* 32.0* No results for input(s): CK in the last 95509 hours. .No results for input(s): VANCOTROUGH, VANCOPEAK, VANCSERIES in the last 25695 hours. Invalid input(s): VANCORAND Recent Labs Component [...] the spine with epidural abscess treated at [facility] [address] -- left THR Plan -- surgery planned in in June with removal of HW - will continue on vanc based on prior cx and rifampin with hardware - monitor labs Discussed with Dr. Alexander Please be advised that part of this text was done using voice recognition software. Errors may havebeen missed upon review. Raysa Nevarez MD MBLY MACHINE SET UP MECHANIC * Karina Slaughter RN - 04/30/2019 10:29 AM CST Problem: Infection Goal: Signs and symptoms of infections are decreased or avoided Outcome: Ongoing Antibiotics given as ordered Problem: Isolation Goal: Prevent Transmission of Infection Outcome: Ongoing PPE worn Problem: Pain/Discomfort Goal: Patient uses pharmacological and non-pharmacological pain management strategies. Outcome: Ongoing Pain medication given as needed MBLY MACHINE SET UP MECHANIC * Leah Franklin RCP - 04/30/2019 7:40 AM CST Mr Keys received his 0800, 1400 treatments; he remains on room air; will continue to monitor. Leah Franklin, Respiratory Care Practitioner 04/30/2019 1:58 PM MBLY MACHINE SET UP MECHANIC * Alberto De Los Santos MD - 04/30/2019 6:49 AM CST [facility] Orthopedic Surgery Daily Progress Note José Miguel Keys, 68 year old, male : 1950 CSN: [id number] Primary Care Physician: Briana Medeiros MD - [...] Procedure Component Value - Date/Time CULTURE MRSA [[id number]] Collected: 04/29/192140 Lab Status: In process Specimen: Micro from Rectum Updated: 04/29/192319 CULTURE VRE [[id number]] Collected: 04/29/192140 Lab Status: In process Specimen: Micro from Rectum Updated: 04/29/192319 CULTURE ABSCESS+GRAM STAIN [[id number]] Collected: 04/29/192140 Lab Status: Preliminary result Specimen: Micro from Hip Updated: 04/30/19627 Gram Stain Rare Polymorphonuclear cells No organisms seen CULTURE BLOOD [[id number]] Collected: 04/29/191908 Lab Status: In process Specimen: Blood Peripheral Updated: 04/29/191917 CULTURE BLOOD [[id number]] Collected: 04/29/191908 Lab Status: In process Specimen: Blood Peripheral Updated: 04/29/191917 CULTURE MRSA [[id number]] Collected: 04/29/191755 Lab Status: In process Specimen: [...] De Los Santos MD 04/30/2019 6:49 AM MBLY MACHINE SET UP MECHANIC * Chris Carter RN - 04/30/2019 12:01 [...] Height: Chris Carter RN 04/30/2019 7:55 AM MBLY MACHINE SET UP MECHANIC * Chris Carter RN - 04/30/2019 12:01 AM CST Problem: Low Fall Risk (Score 7-10) Goal: Patient will remain as independent as possible. Outcome: Ongoing Problem: Infection Goal: Signs and symptoms of infections are decreased or avoided Outcome: Ongoing Problem: Isolation Goal: Prevent Transmission of Infection Outcome: Ongoing MBLY MACHINE SET UP MECHANIC * Oziel De Los Santos RN - [...] Call light within reach Continue to monitor MBLY MACHINE SET UP MECHANIC * Cheryl Mccoy PharmD - 04/29/2019 1:17 [...] monitor. Cheryl Mccoy PharmD 04/29/2019 1:18 PM MBLY MACHINE SET UP MECHANIC * Hoa Poe - 04/29/2019 6:56 AM [...] 04/29/2019655 by Hoa Poe RN Outcome: Ongoing 04/29/2019 0643 by Hoa Poe RN Outcome: Ongoing MBLY MACHINE SET UP MECHANIC * Hoa Poe - 04/29/2019 6:56 AM CST Problem: Isolation Goal: Prevent Transmission of Infection 04/29/2019 0656 by Hoa Poe RN Outcome: Ongoing 04/29/2019 0656 by Hoa Poe RN Outcome: Ongoing 04/29/2019 0643 by Hoa Poe RN Outcome: Ongoing MBLY MACHINE SET UP MECHANIC * Hoa Poe - 04/29/2019 6:44 AM CST Patient presents AxO 3-4 able to make needs known to staff. Ambulates with walker on a normal bases; however uses a wheelchair for longer distances per . Direct admit [facility] due to the suspicion of sepsis of right hip arthroplasty. Dr. Oh admitting provider;orders placed. Vitals assessed and documented. Original surgery performed 2005. Recent I/D 02/04 AND 02/08 at the [facility]. reports that while helping to change she notices that the gauze in place was saturated and running down his leg. The area was also warm to the touch; it was then that they decided to head to the hospital. 1 gram of Vanc was administered at outside facility. Report called to nurse from [facility] [phone]. Allergy documented, fall precautions in place. Patient [...] send valuable home to include cellphone and platform attendant that the ministry recommends to send valuable to security due to not being able to monitor items throughout his stay. Both verbalized understanding. MBLY MACHINE SET UP MECHANIC * Hoa Poe - 04/29/2019 6:43 AM [...] Goal: Prevent Transmission of Infection Outcome: Ongoing MBLY MACHINE SET UP MECHANIC documented in this encounter H&P Notes * Dwayne Nichols ANESTHESIOLOGY TECHNOLOGIST-WELDING TESTER - 04/29/2019 5:49 AM CST H&P for Dr. [facility] Dipak Nichols ANESTHESIOLOGY TECHNOLOGIST- COMMERCIAL GREEN RETROFIT ARCHITECT HPI 68 yo male with a history [...] file Gets together: Not on file Attends yarsanism service: Not on file Active member of [...] by mouth once daily ??? nystatin (NYSTOP) 998788 UNIT/GM powder Apply to affected area 2 [...] as needed. ??? vitamin D, ergocalciferol, (DRISDOL) 57373 UNITS capsule Take 50,000 Units by mouth [...] retention, urinary frequency, incontinence, passage of stones SENIOR IOS DEVELOPER: Cranial: disturbances of smell, visual disturbances, facial [...] - 101 CO2 28 - 25 BUN - 19 CREATININE 1.02 - 1.22* GLUCOSE [...] results for input(s): TROPPOCT in the last 87032 hours. No results for input(s): TROPONIN in the last 32334 hours. No results for input(s): BNPPOCT in the last 10446 hours. No results for input(s): CKMBPOCT in the last 48446 hours. No results for input(s): CKMB in the last 32563 hours. No orders to display ASSESSMENT/PLAN Right [...] guided by the work up described above. MBLY MACHINE SET UP MECHANIC Associated attestation - Kev Ordonez MD - 04/29/2019 4:55 PM ASSEMBLY MACHINE SET UP MECHANIC Sound Hospitalist History and Physical I have [...] a history of righttotal hip arthoplasty in 2005. He was admitted [...] Feel free to text page me through [employer], login smsl documented in this encounter Consult Notes * Anika De León LPN - 05/06/2019 12:26 PM CSTAssociated Order(s): IP CONSULT TO HOME HEALTH CARE Home health referral received. Per patient he is currently open with [facility]. H&P, Wound orders faxed to [facility] at this time. Thanks, ANIKA DE LEÓN LPN [facility] at Home Home Health Chain Repairer [phone] After 4:30 or over the weekend call [phone] option 1 MBLY MACHINE SET UP MECHANIC * Lana Narayanan, RD/LD - 04/30/2019 11:01 AM CSTAssociated Order(s): IP [...] results for input(s): PREALBUMIN in the last 38021 hours. No data found. PERTINENT MEDICATIONS FOR [...] AICHA Barrera 04/30/2019 11:21 AM Ascom [id number] MBLY MACHINE SET UP MECHANIC * Armida Gomez MD - 04/29/2019 6:40 [...] cirrhosis, left THR,h/o MRSA sepsis treated at [facility] in 2018, complicated with epidural abscess S/P [...] ??? S/P PICC central line placement 02/13/2019 [facility] VAT R basilic ??? Seizures ??? Squamous [...] puffy, itchy ??? Scopace [Scopolamine] Other and SENIOR IOS DEVELOPER Dysfunction delirium Exam Vitals: 04/29/19 0526 04/29/19 [...] results for input(s): CDIFFTOXINAB in the last 09889 hours. Recent Labs Component Name 04/24/19 1141 SEDRATE 70* Recent Labs Component Name 04/24/19 1140 08/15/17 0348 08/09/17 0745 CRP 1.41* 4.1* 32.0* No results for input(s): CK in the last 63154 hours. .No results for input(s): VANCOTROUGH, VANCOPEAK, VANCSERIES in the last 31137 hours. Invalid input(s): VANCORAND Recent Labs Component [...] the spine with epidural abscess treated at [facility] with cage in place -- left THR Plan - consider Ct of the rt hip to r/o deeper abscess - pls cx drainage - ortho may plan for surgery in am? - will continue on vanc based on prior cx and will add rifampin with hardware - monitor labs - consider bcx Armida Gomez MD MBLY MACHINE SET UP MECHANIC * Alberto De Los Santos MD - 04/29/2019 8:12 AM CST [facility] Orthopedic Surgery Consultation Note José Miguel Keys, 68 year old, male : 1950 CSN: [id number] Primary Care Physician: Briana Medeiros MD Chief Complaint No chief complaint on file. Admission Date/Time: 04/29/2019 5:18 AM Today's Date/Time: 04/29/2019 8:12 AM HPI Consulting Service: medicine [facility] Orthopedic Surgery consulted for evaluation/management of: wound [...] yesterday with new wound drainage. Transferred to [facility] for higher level of care. He is [...] puffy, itchy ??? Scopace [Scopolamine] Other and SENIOR IOS DEVELOPER Dysfunction delirium Medications Current Facility-Administered Medications Medication [...] De Los Santos MD 04/29/2019 8:12 AM MBLY MACHINE SET UP MECHANIC documented in this encounter OR Notes * Brief Op Note - Alberto De Los Santos MD - 05/02/2019 1:47 PM ASSEMBLY MACHINE SET UP MECHANIC Brief Op Note Procedure: IRRIGATION AND DEBRIDEMENT RIGHT HIP ABSCESS Patient Name: José Miguel Keys Date of Service: 05/02/2019 Pre-Op Diagnosis: Diagnosis unknown [R69] Post-Op Diagnosis: right hip superficial abscess Surgeon(s) and Role: * Larry Alexander MD - Primary Hot Plate Plywood Press Laborer(s): Justin De Los Santos MD Anesthesia Type: [...] deep culture. Alberto De Los Santos MD MBLY MACHINE SET UP MECHANIC * Operative - Larry Alexander MD - [...] application right hip/incisional wound VAC application Surgeon: Hot [employer] Press Laborer: Indications for procedure: Patient is a 5-year-old [...] procedure and I was present entire case MBLY MACHINE SET UP MECHANIC documented in this encounter Miscellaneous Notes * ACP (Advance Care Planning) - Dawyne Nichols, JOHN-WELDING TESTER - 04/29/2019 9:48 AM CST Advanced Care [...] as an Advanced Directive. Total time spent [id number] in education and discussion related to advanced care plannin minutes. SHAGUFTA Vargas 04/29/2019 MBLY MACHINE SET UP MECHANIC documented in this encounter Plan of Treatment Upcoming Encounters Date Type Department Care Team (Late st Contact Info) Description 07/09/2024 12:30 PM ASSEMBLY MACHINE SET UP MECHANIC Office Visit [facility] - GI [address] [place] [address], [place] [address] Twin Miller MD [address] [place] [address] OF GASTRO[place] [address] 09/19/2024 2:00 PM CDT Office Visit [facility] - Orthopedic Surgery [facility] [place] [phone] Larry Alexander MD [address] [facility] [address] [place] [address] documented as of this encounter Goals Goal [...] CARDIAC RHYTHM STRIP ORDER 05/07/2019 6:01 PM ASSEMBLY MACHINE SET UP MECHANIC CBC W AUTO DIFFERENTIAL AM Draw 05/06/2019 2:31 AM ASSEMBLY MACHINE SET UP MECHANIC BASIC METABOLIC PANEL (CALCIUM TOTAL) AM Draw 05/06/2019 2:31 AM ASSEMBLY MACHINE SET UP MECHANIC PLATELET COUNT AUTO AM Draw 05/05/2019 2 :15 AM ASSEMBLY MACHINE SET UP MECHANIC BASIC METABOLIC PANEL (CALCIUM TOTAL) AM Draw 05/05/2019 2:15 AM ASSEMBLY MACHINE SET UP MECHANIC BASIC METABOLIC PANEL (CALCIUM TOTAL) AM Draw 05/04/2019 3:07 AM ASSEMBLY MACHINE SET UP MECHANIC VANCOMYCIN LEVEL TROUGH Timed 05/03/2019 1:21 PM ASSEMBLY MACHINE SET UP MECHANIC CBC W AUTO DIFFERENTIAL AM Draw 05/03/2019 2:46 AM ASSEMBLY MACHINE SET UP MECHANIC BASIC METABOLIC PANEL (CALCIUM TOTAL) AM Draw 05/03/2019 2:46 AM ASSEMBLY MACHINE SET UP MECHANIC GLUCOSE - POINT OF CARE Routine 05/02/2019 3:23 PM ASSEMBLY MACHINE SET UP MECHANIC CULTURE FLUID+GRAM STAIN STAT 05/02/2019 2:24 PM ASSEMBLY MACHINE SET UP MECHANIC Diagnosis unknown CULTURE ANAEROBE STAT 05/02/2019 2:24 PM ASSEMBLY MACHINE SET UP MECHANIC Diagnosis unknown PREPARE RBC LEUKOREDUCED UNIT STAT 05/02/2019 2:15 PM ASSEMBLY MACHINE SET UP MECHANIC CULTURE FLUID+GRAM STAIN STAT 05/02/2019 2:09 PM ASSEMBLY MACHINE SET UP MECHANIC Diagnosis unknown CULTURE ANAEROBE STAT 05/02/2019 2:09 PM ASSEMBLY MACHINE SET UP MECHANIC Diagnosis unknown TYPE + SCREEN PANEL STAT 05/02/2019 2 :07 PM ASSEMBLY MACHINE SET UP MECHANIC WY NEG PRESS WND TX PER SESS; TOT SURF </= 50 SQ CM 05/02/2019 12:37 PM ASSEMBLY MACHINE SET UP MECHANIC Diagnosis unknown Special Needs NO REP NEEDED- 05-01-MAB### 004 ### NEEDS C-ARM WY INCIS/DRAIN PELVIS/HIP,DEEP ABSCESS 05/02/2019 12:37 PM ASSEMBLY MACHINE SET UP MECHANIC Diagnosis unknown Special Needs NO REP NEEDED- 05-01-MAB### 004 ### NEEDS C-ARM CBC W AUTO DIFFERENTIAL AM Draw 05/02/2019 4:10 AM ASSEMBLY MACHINE SET UP MECHANIC COMPREHENSIVE METABOLIC PANEL AM Draw 05/02/2019 4:10 AM ASSEMBLY MACHINE SET UP MECHANIC ECHOCARDIOGRAM 2D WITH DOPPLER Routine 05/01/2019 6:07 PM ASSEMBLY MACHINE SET UP MECHANIC 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, subsequent encounter Coronary artery disease without angina pectoris, unspecified vessel or lesion type, unspecified whether tunica-biloxi or transplanted heart Chronic atrial fibrillation (HCC) EKG 12-LEAD Routine 05/01/2019 3:54 PM ASSEMBLY MACHINE SET UP MECHANIC 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, subsequent encounter XR CHEST 1VW PORTABLE Routine 05/01/2019 3:41 PM ASSEMBLY MACHINE SET UP MECHANIC 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, subsequent encounter Coronary artery disease without angina pectoris, unspecified vessel or lesion type, unspecified whether tunica-biloxi or transplanted heart VANCOMYCIN LEVEL TROUGH Timed 05/01/2019 7:49 AM ASSEMBLY MACHINE SET UP MECHANIC CBC W AUTO DIFFERENTIAL AM Draw 05/01/2019 2:44 AM ASSEMBLY MACHINE SET UP MECHANIC BASIC METABOLIC PANEL (CALCIUM TOTAL) AM Draw 05/01/2019 2:44 AM ASSEMBLY MACHINE SET UP MECHANIC OT EVAL AND TREAT Routine 04/30/2019 5:2 3 PM ASSEMBLY MACHINE SET UP MECHANIC PT EVAL AND TREAT Routine 04/30/2019 5:2 3 PM ASSEMBLY MACHINE SET UP MECHANIC PT-INR AM Draw 04/30/2019 2:42 AM ASSEMBLY MACHINE SET UP MECHANIC CBC W AUTO DIFFERENTIAL AM Draw 04/30/2019 2:42 AM ASSEMBLY MACHINE SET UP MECHANIC COMPREHENSIVE METABOLIC PANEL AM Draw 04/30/2019 2:42 AM ASSEMBLY MACHINE SET UP MECHANIC CULTURE ABSCESS+GRAM STAIN Routine 04/29/2019 9:41 PM ASSEMBLY MACHINE SET UP MECHANIC CULTURE VRE Routine 04/29/2019 9:41 PM ASSEMBLY MACHINE SET UP MECHANIC CULTURE MRSA Routine 04/29/2019 9:41 PM ASSEMBLY MACHINE SET UP MECHANIC CULTURE BLOOD Timed 04/29/2019 7:09 PM ASSEMBLY MACHINE SET UP MECHANIC CULTURE BLOOD Timed 04/29/2019 7:09 PM ASSEMBLY MACHINE SET UP MECHANIC CULTURE MRSA Routine 04/29/2019 5:56 PM ASSEMBLY MACHINE SET UP MECHANIC XR HIP RIGHT 2VW OR MORE Routine 04/29/2019 12:18 PM ASSEMBLY MACHINE SET UP MECHANIC 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 Scanned Document CARDIAC SERVICES ORD ERABLES * (ABNORMAL) BASIC METABOLIC PANEL (CALCIUM TOTAL) (05/06/2019 2:31 AM ASSEMBLY MACHINE SET UP MECHANIC) [facility] Signature Glucose 88 70 - 105 mg/dL 05/06/2019 3:22 AM ASSEMBLY MACHINE SET UP MECHANIC [facility] Sodium 137 136 - 145 mmol/L 05/06/2019 3:22 AM [facility] Potassium 3.2(L) 3.5 - 4.7 mmol/L 05/06/2019 3:22 AM [facility] Chloride 100 98 - 107 mmol/L 05/06/2019 3:22 AM [facility] CO2 26 23 - 31 mmol/L 05/06/2019 3:22 AM [facility] Calcium 9.2 8.4 - 10.4 mg/dL 05/06/2019 3:22 AM [facility] Anion Gap 11 8 - 16 mmol/L 05/06/2019 3:22 AM [facility] BUN 22 8.4 - 25.7 mg/dL 05/06/2019 3:22 AM [facility] Creatinine 1.15 0.72 - 1.25 mg/dL 05/06/2019 3:22 AM [facility] eGFR by MDRD >60 mL/min/1.7 3m2 05/06/2019 3:22 AM [facility] eGFR by MDRD >60 mL/min/1.7 3m2 05/06/2019 3:22 AM [facility] Blood BLOOD SPECIMEN / Unknown Lab Venipuncture / Unknown 05/06/2019 2:31 AM ASSEMBLY MACHINE SET UP MECHANIC 05/06/2019 3:02 AM [facility] Kev Ordonez MD LAB - [facility] Organization Address City/State/[facility] Co de Phone Number [facility] [address] [place] [address] * (ABNORMAL) CBC W AUTO DIFFERENTIAL (05/06/2019 2:31 AM [facility]) [facility] WBC 6.9 4.4 - 10.7 x10E9/L 05/06/2019 3:09 AM [facility] WBC Corrected 05/06/2019 3:09 AM [facility] RBC 3.82 3.80 - 5.40 x10E12/L 05/06/2019 3:09 AM [facility] Hemoglobin 10.1(L) 12.0 - 17.6 gm/dL 05/06/2019 3:09 AM [facility] Hematocrit 32.6(L) 35.2 - 51.7 % 05/06/2019 3:09 AM [facility] MCV 85.3 80.7 - 98.3 fl 05/06/2019 3:09 AM [facility] MCH 26.4(L) 26.7 - 34.0 pg 05/06/2019 3:09 AM [facility] MCHC 31.0 30.8 - 35.9 gm/dL 05/06/2019 3:09 AM [facility] Platelet Count 176 153 - 416 x10E9/L 05/06/2019 3:09 AM [facility] RDW-CV 15.8(H) 12.1 - 14.9 % 05/06/2019 3:09 AM [facility] MPV 13.6(H) 9.4 - 12.9 fl 05/06/2019 3:09 AM [facility] Neutrophils % 61.5 44.0 - 73.0 % 05/06/2019 3:09 AM [facility] Lymphocytes % 11.9(L) 20.0 - 43.0 % 05/06/2019 3:09 AM [facility] Monocytes % 11.5 5.0 - 13.0 % 05/06/2019 3:09 AM [facility] Eosinophils % 14.1(H) 0.0 - 6.0 % 05/06/2019 3:09 AM [facility] Basophils % 0.6 0.0 - 2.0 % 05/06/2019 3:09 AM [facility] Immature Granulocytes 0.4 0 - 1 % 05/06/2019 3:09 AM [facility] Neutrophil Absolute 4.22 2.01 - 7.14 x10E9/L 05/06/2019 3:09 AM [facility] Lymphocytes Absolute 0.82(L) 1.07 - 3.94 x10E9/L 05/06/2019 3:09 AM [facility] Monocytes Absolute 0.79 0.26 - 1.07 x10E9/L 05/06/2019 3:09 AM [facility] Eosinophils Absolute 0.97(H) 0 - 0.47 x10E9/L 05/06/2019 3:09 AM [facility] Basophils Absolute 0.04 0 - 0.08 x10E9/L 05/06/2019 3:09 AM [facility] Immature Granulocytes Absolute 0.03 0.00 - 0.06 x10E9/L 05/06/2019 3:09 AM [facility] nRBC Auto 0 /100 WBC 05/06/2019 3:09 AM [facility] Blood BLOOD SPECIMEN / Unknown Lab Venipuncture / Unknown 05/06/2019 2:31 AM ASSEMBLY MACHINE SET UP MECHANIC 05/06/2019 3:02 AM ASSEMBLY MACHINE SET UP MECHANIC Kev Ordonez MD LAB - HEMATOLOGY ORD ERABLES [facility] [address] [place] [address] * (ABNORMAL) BASIC METABOLIC PANEL (CALCIUM TOTAL) (05/05/2019 2:15 AM [facility]) Glucose 98 70 - 105 mg/dL 05/05/2019 3:13 AM [facility] Sodium 137 136 - 145 mmol/L 05/05/2019 3:13 AM [facility] Potassium 3.1(L) 3.5 - 4.7 mmol/L 05/05/2019 3:13 AM [facility] Chloride 102 98 - 107 mmol/L 05/05/2019 3:13 AM [facility] CO2 25 23 - 31 mmol/L 05/05/2019 3:13 AM [facility] Calcium 9.1 8.4 - 10.4 mg/dL 05/05/2019 3:13 AM [facility] Anion Gap 10 8 - 16 mmol/L 05/05/2019 3:13 AM [facility] BUN 20 8.4 - 25.7 mg/dL 05/05/2019 3:13 AM [facility] Creatinine 0.96 0.72 - 1.25 mg/dL 05/05/2019 3:13 AM [facility] eGFR by MDRD >60 mL/min/1.7 3m2 05/05/2019 3:13 AM [facility] eGFR by MDRD >60 mL/min/1.7 3m2 05/05/2019 3:13 AM [facility] Blood BLOOD SPECIMEN / Unknown Lab Venipuncture / Unknown 05/05/2019 2:15 AM ASSEMBLY MACHINE SET UP MECHANIC 05/05/2019 2:39 AM ASSEMBLY MACHINE SET UP MECHANIC Michelle Pratt MD LAB - CHEMISTRY ORD ERABLES Performing Organization Address City/[facility]/ZIP Co de Phone Number [facility] [address] [place] [address] * PLATELET COUNT AUTO (05/05/2019 2:15 AM ASSEMBLY MACHINE SET UP MECHANIC) Platelet Count 157 153 - 416 x10E9/L 05/05/2019 3:03 AM [facility] Blood BLOOD SPECIMEN / Unknown Lab Venipuncture / Unknown 05/05/2019 2:15 AM ASSEMBLY MACHINE SET UP MECHANIC 05/05/2019 2:38 AM ASSEMBLY MACHINE SET UP MECHANIC Michelle Pratt MD LAB - HEMATOLOGY OR DERABLES Performing Organization Address [facility] Co de Phone Number [facility] [address] [place] [id number] * (ABNORMAL) BASIC METABOLIC PANEL (CALCIUM TOTAL) (05/04/2019 3:07 AM ASSEMBLY MACHINE SET UP MECHANIC) Glucose 107(H) 70 - 105 mg/dL 05/04/2019 3:52 AM [facility] Sodium 135(L) 136 - 145 mmol/L 05/04/2019 3:52 AM [facility] Potassium 3.2(L) 3.5 - 4.7 mmol/L 05/04/2019 3:52 AM [facility] Chloride 100 98 - 107 mmol/L 05/04/2019 3:52 AM [facility] CO2 27 23 - 31 mmol/L 05/04/2019 3:52 AM [facility] Calcium 9.1 8.4 - 10.4 mg/dL 05/04/2019 3:52 AM [facility] Anion Gap 8 8 - 16 mmol/L 05/04/2019 3:52 AM [facility] BUN 19 8.4 - 25.7 mg/dL 05/04/2019 3:52 AM [facility] Creatinine 1.12 0.72 - 1.25 mg/dL 05/04/2019 3:52 AM [facility] eGFR by MDRD >60 mL/min/1.7 3m2 05/04/2019 3:52 AM [facility] eGFR by MDRD >60 mL/min/1.7 3m2 05/04/2019 3:52 AM ASSEMBLY MACHINE SET UP MECHANIC [facility] Blood BLOOD SPECIMEN / Unknown Lab Venipuncture / Unknown 05/04/2019 3:07 AM ASSEMBLY MACHINE SET UP MECHANIC 05/04/2019 3:19 AM ASSEMBLY MACHINE SET UP MECHANIC Michelle Pratt MD LAB - CHEMISTRY ORD SP Performing Organization Address [facility]/ZIP Co de Phone Number [facility] [address] [place], [place] [phone] * (ABNORMAL) VANCOMYCIN LEVEL TROUGH (05/03/2019 1:21 PM ASSEMBLY MACHINE SET UP MECHANIC) Vancomycin Trough 22.9(H) 10.0 - 20.0 ug/mL 05/03/2019 2:04 PM [facility] Blood BLOOD SPECIMEN / Unknown Lab Venipuncture / Unknown 05/03/2019 1:21 PM ASSEMBLY MACHINE SET UP MECHANIC 05/03/2019 1:40 PM ASSEMBLY MACHINE SET UP MECHANIC Raysa Nevarez MD LAB - CHEMISTRY ORDMarj KLINE Performing Organization Address [facility] Co de Phone Number [facility] [address] [place], [place] [id number] * (ABNORMAL) CBC W AUTO DIFFERENTIAL (05/03/2019 2:46 AM ASSEMBLY MACHINE SET UP MECHANIC) WBC 9.6 4.4 - 10.7 x10E9/L 05/03/2019 3:46 AM ASSEMBLY MACHINE SET UP MECHANIC [facility] WBC Corrected 05/03/2019 3:46 AM ASSEMBLY MACHINE SET UP MECHANIC [facility] RBC 4.22 3.80 - 5.40 x10E12/L 05/03/2019 3:46 AM ASSEMBLY MACHINE SET UP MECHANIC [facility] Hemoglobin 11.2(L) 12.0 - 17.6 gm/dL 05/03/2019 3:46 AM ASSEMBLY MACHINE SET UP MECHANIC [facility] Hematocrit 38.1 35.2 - 51.7 % 05/03/2019 3:46 AM ASSEMBLY MACHINE SET UP MECHANIC [facility] MCV 90.3 80.7 - 98.3 fl 05/03/2019 3:46 AM ASSEMBLY MACHINE SET UP MECHANIC [facility] MCH 26.5(L) 26.7 - 34.0 pg 05/03/2019 3:46 AM ASSEMBLY MACHINE SET UP MECHANIC [facility] MCHC 29.4(L) 30.8 - 35.9 gm/dL 05/03/2019 3:46 AM [facility] Platelet Count 138(L) 153 - 416 x10E9/L 05/03/2019 3:46 AM [facility] RDW-CV 16.0(H) 12.1 - 14.9 % 05/03/2019 3:46 AM [facility] MPV 13.6(H) 9.4 - 12.9 fl 05/03/2019 3:46 AM [facility] Neutrophils % 73.5(H) 44.0 - 73.0 % 05/03/2019 3:46 AM [facility] Lymphocytes % 6.1(L) 20.0 - 43.0 % 05/03/2019 3:46 AM [facility] Monocytes % 9.9 5.0 - 13.0 % 05/03/2019 3:46 AM [facility] Eosinophils % 9.5(H) 0.0 - 6.0 % 05/03/2019 3:46 AM [facility] Basophils % 0.6 0.0 - 2.0 % 05/03/2019 3:46 AM [facility] Immature Granulocytes 0.4 0 - 1 % 05/03/2019 3:46 AM [facility] Neutrophil Absolute 7.04 2.01 - 7.14 x10E9/L 05/03/2019 3:46 AM [facility] Lymphocytes Absolute 0.58(L) 1.07 - 3.94 x10E9/L 05/03/2019 3:46 AM [facility] Monocytes Absolute 0.95 0.26 - 1.07 x10E9/L 05/03/2019 3:46 AM [facility] Eosinophils Absolute 0.91(H) 0 - 0.47 x10E9/L 05/03/2019 3:46 AM [facility] Basophils Absolute 0.06 0 - 0.08 x10E9/L 05/03/2019 3:46 AM [facility] Immature Granulocytes Absolute 0.04 0.00 - 0.06 x10E9/L 05/03/2019 3:46 AM [facility] nRBC Auto 0 /100 WBC 05/03/2019 3:46 AM [facility] Blood BLOOD SPECIMEN / Unknown Lab Venipuncture / Unknown 05/03/2019 2:46 AM ASSEMBLY MACHINE SET UP MECHANIC 05/03/2019 3:36 AM ASSEMBLY MACHINE SET UP MECHANIC Kev Ordonez MD LAB - HEMATOLOGY ORD SP Performing Organization Address [facility]/ZIP Co de Phone Number [facility] [address] [place] [address] * BASIC METABOLIC PANEL (CALCIUM TOTAL) (05/03/2019 2:46 AM ASSEMBLY MACHINE SET UP MECHANIC) [facility] Glucose 86 70 - 105 mg/dL 05/03/2019 4:05 AM [facility] Sodium 140 136 - 145 mmol/L 05/03/2019 4:05 AM [facility] Potassium 4.2 3.5 - 4.7 mmol/L 05/03/2019 4:05 AM [facility] Chloride 104 98 - 107 mmol/L 05/03/2019 4:05 AM [facility] CO2 24 23 - 31 mmol/L 05/03/2019 4:05 AM [facility] Calcium 9.4 8.4 - 10.4 mg/dL 05/03/2019 4:05 AM [facility] Anion Gap 12 8 - 16 mmol/L 05/03/2019 4:05 AM [facility] BUN 16 8.4 - 25.7 mg/dL 05/03/2019 4:05 AM [facility] Creatinine 1.04 0.72 - 1.25 mg/dL 05/03/2019 4:05 AM [facility] eGFR by MDRD >60 mL/min/1.7 3m2 05/03/2019 4:05 AM [facility] eGFR by MDRD >60 mL/min/1.7 3m2 05/03/2019 4:05 AM [facility] Blood BLOOD SPECIMEN / Unknown Lab Venipuncture / Unknown 05/03/2019 2:46 AM ASSEMBLY MACHINE SET UP MECHANIC 05/03/2019 3:37 AM ASSEMBLY MACHINE SET UP MECHANIC Kev Ordonez MD LAB - CHEMISTRY ROYCE KLINE Performing Organization Address City/[facility]/ZIP Co de Phone Number [facility] [address] [place], [place] [phone] * GLUCOSE - POINT OF CARE (05/02/2019 3:23 PM ASSEMBLY MACHINE SET UP MECHANIC) Glucose WB/POC 101 70 - 106 mg/dL 05/02/2019 6:02 PM ASSEMBLY MACHINE SET UP MECHANIC [facility] Specimen Type Arterial/C apillary 05/02/2019 6:02 PM ASSEMBLY MACHINE SET UP MECHANIC [facility] Blood BLOOD SPECIMEN / Unknown 05/02/2019 3:23 PM ASSEMBLY MACHINE SET UP MECHANIC 05/02/2019 6:02 PM ASSEMBLY MACHINE SET UP MECHANIC Kev Ordonez MD LAB - POINT OF CARE ORDERABLES [facility] [address] [place] [address] * CULTURE FLUID+GRAM STAIN (05/02/2019 2:24 PM ASSEMBLY MACHINE SET UP MECHANIC) Culture No growth UMESH 05/09/2019 6:44 AM ASSEMBLY MACHINE SET UP MECHANIC [facility] Gram Stain Rare Polymorphonuclear cells 05/09/2019 6:44 AM ASSEMBLY MACHINE SET UP MECHANIC [facility] Gram Stain No organisms seen 019 6:44 AM [facility] Fluid BODY FLUID SPECIMEN / Unknown Collection / Unknown 05/02/2019 2:24 PM ASSEMBLY MACHINE SET UP MECHANIC 05/02/2019 3:22 PM ASSEMBLY MACHINE SET UP MECHANIC Comment:Pre-op diagnosis: Diagnosis unknown [R69] Narrative [facility] - 05/09/2019 6:44 AM ASSEMBLY MACHINE SET UP MECHANIC Surgical Description: Post Irrigation Right Hip Fluid Larry Alexander MD LAB - MICROBIOLOGY ORDERABLES Performing Organization Address City/[facility]/ZIP Co de Phone Number [facility] [address] [place], [place] [address] [phone] * CULTURE ANAEROBE (05/02/2019 2:24 PM ASSEMBLY MACHINE SET UP MECHANIC) Culture No anaerobic organisms isolated UMESH 05/07/2019 12:40 PM [facility] Fluid BODY FLUID SPECIMEN / Unknown Collection / Unknown 05/02/2019 2:24 PM ASSEMBLY MACHINE SET UP MECHANIC 05/02/2019 3:22 PM ASSEMBLY MACHINE SET UP MECHANIC Comment:Pre-op diagnosis: Diagnosis unknown [R69] Narrative [facility] - 05/07/2019 12:40 PM ASSEMBLY MACHINE SET UP MECHANIC Surgical Description: Post Irrigation Right Hip Fluid Larry Alexander MD LAB - MICROBIOLOGY ORDERABLES [facility] [address] [phone] * PREPARE (CROSSMATCH) RBC UNIT(S), 2 Units (05/02/2019 2:15 PM ASSEMBLY MACHINE SET UP MECHANIC) Product Code [id number] [facility] Unit Donor # [id number] S [facility] ABO Donor Type A [facility] Rh Type Unit POS SM BL OOD BANK LAB Unit Status Ret'd [facility] ABO Rh Type Unit APOS [facility] Donor Unit Expiration Date [facility] Blood Type Barcode 6200 [facility] Product Code [id number] [facility] Unit Donor # [id number] S [facility] ABO Donor Type A [facility] Rh Type Unit POS HC BL OOD [facility]ANK LAB Unit Status Ret'd [facility] B[facility] ABO Rh Type Unit APOS [facility] Donor Unit Expiration Date [facility] Blood Type Barcode 6200 [facility] Blood Bank BLOOD SPECIMEN / Unknown 05/02/2019 2:15 PM [employer] MACH[employer] SET UP MECHANIC Larry Alexander MD LAB - BLOOD BANK OR DERABLES [facility] [address] [phone] * CULTURE FLUID+GRAM STAIN (05/02/2019 2:09 PM [employer]SEM[employer] MACHINE SET UP MECHANIC) Culture No growth UMESH 05/09/2019 6:44 AM [facility] MICRO[facility] Gram Stain No organisms seen 019 6:44 AM [facility]CRO[facility] Gram Stain Light Polymorphonuclear cells 05/09/2019 6:44 AM [facility]CRO[facility] Fluid BODY FLUID SPECIMEN / Unknown Collection / Unknown 05/02/2019 2:09 PM [employer] SET UP MECHANIC 05/02/2019 2:40 PM [employer] M[employer] SET UP MECHANIC Comment:Pre-op diagnosis: Diagnosis unknown [R69] Narrative [facility]CRO[facility] - 05/09/2019 6:44 AM [employer] UP MECHANIC Surgical Description: Right Hip Fluid Larry Alexander MD LAB - MICROBIOLOGY ORDERABLES Performing Organization Address [facility]/ZIP Co de Phone Number [facility]CRO[facility] [address] [place] [address], [facility] [phone] * CULTURE ANAEROBE (05/02/2019 2:09 PM ASSEMBL[employer] MACHINE SET UP MECHANIC) Pathologist [facility] Culture No anaerobic organisms isolated UMESH 05/07/2019 12:42 PM [employer]SEM[employer] MACHINE SET UP MECHANIC [facility] MICRO[facility] Fluid BODY FLUID SPECIMEN / Unknown Collection / Unknown 05/02/2019 2:09 PM [employer] MACHINE SET UP MECHANIC 05/02/2019 2:40 PM [employer] M[employer] SET UP MECHANIC Comment:Pre-op diagnosis: Diagnosis unknown [R69] Narrative [facility]CRO[facility] - 05/07/2019 12:42 PM [employer] MACH[employer] SET UP MECHANIC Surgical Description: Right Hip Fluid Larry Alexander MD LAB - MICROBIOLOGY ORDERABLES Performing Organization Address [facility]/ZIP Co de Phone Number [facility] [address] [place] [address], [facility] [phone] * TYPE + SCREEN PANEL (05/02/2019 2:07 PM [employer]SEM[employer] MACHINE SET UP MECHANIC) Pathologist [facility] ABO A 05/02/2019 2:34 PM [employer] MACHINE SET UP MECHANIC [facility] B[facility]OD [facility] Rh Type Positive 05/02/2019 2:34 PM [employer]SEM[employer] MACHINE SET UP MECHANIC [facility]ANK LAB Comment:History checked. Antibody Screen Negative 05/02/2019 2:34 PM ASSEMBLY MACHINE SET UP MECHANIC [facility] BLOOD BANK LAB Blood Bank BLOOD SPECIMEN / Unknown Venipuncture / Unknown 05/02/2019 2:07 PM ASSEMBLY MACHINE SET UP MECHANIC 05/02/2019 2:07 PM ASSEMBLY MACHINE SET UP MECHANIC Larry Alexander MD LAB - BLOOD BANK OR DERABLES [facility] BLOOD BANK LAB [address] [place] [address], [facility] [phone] * (ABNORMAL) COMPREHENSIVE METABOLIC PANEL (05/02/2019 4:10 AM ASSEMBLY MACHINE SET UP MECHANIC) Pathologist [facility] Glucose 98 70 - 105 mg/dL 05/02/2019 6:02 AM [facility] Sodium 138 136 - 145 mmol/L 05/02/2019 6:02 AM [facility] Potassium 3.6 3.5 - 4.7 mmol/L 05/02/2019 6:02 AM [facility] Chloride 102 98 - 107 mmol/L 05/02/2019 6:02 AM [facility] CO2 27 23 - 31 mmol/L 05/02/2019 6:02 AM [facility] Calcium 9.4 8.4 - 10.4 mg/dL 05/02/2019 6:02 AM [facility] Anion Gap 9 8 - 16 mmol/L 05/02/2019 6:02 AM [facility] BUN 20 8.4 - 25.7 mg/dL 05/02/2019 6:02 AM [facility] Creatinine 1.13 0.72 - 1.25 mg/dL 05/02/2019 6:02 AM [facility] Alkaline Phosphatase 211(H) 40 - 150 U/L 05/02/2019 6:02 AM [facility] ALT 26 0 - 61 U/L 05/02/2019 6:02 AM [facility] AST 25 5 - 34 U/L 05/02/2019 6:02 AM [facility] Protein Total 7.3 6.4 - 8.3 gm/dL 05/02/2019 6:02 AM [facility] Albumin 3.6 3.2 - 4.6 gm/dL 05/02/2019 6:02 AM [facility] Bilirubin Total 1.1 0.2 - 1.2 mg/dL 05/02/2019 6:02 AM [facility] eGFR by MDRD >60 mL/min/1.7 3m2 05/02/2019 6:02 AM [facility] eGFR by MDRD >60 mL/min/1.7 3m2 05/02/2019 6:02 AM [facility] Blood BLOOD SPECIMEN / Unknown Lab Venipuncture / Unknown 05/02/2019 4:10 AM ASSEMBLY MACHINE SET UP MECHANIC 05/02/2019 4:52 AM [facility] Kev Ordonez MD LAB - CHEMISTRY [facility] Organization Address City/State/ZIP Co de Phone Number [facility] [address] [place] [address] * (ABNORMAL) CBC W AUTO DIFFERENTIAL (05/02/2019 4:10 AM [facility]) WBC 6.6 4.4 - 10.7 x10E9/L 05/02/2019 5:01 AM [facility] WBC Corrected 05/02/2019 5:01 AM [facility] RBC 4.12 3.80 - 5.40 x10E12/L 05/02/2019 5:01 AM [facility] Hemoglobin 10.8(L) 12.0 - 17.6 gm/dL 05/02/2019 5:01 AM [facility] Hematocrit 36.7 35.2 - 51.7 % 05/02/2019 5:01 AM [facility] MCV 89.1 80.7 - 98.3 fl 05/02/2019 5:01 AM [facility] MCH 26.2(L) 26.7 - 34.0 pg 05/02/2019 5:01 AM [facility] MCHC 29.4(L) 30.8 - 35.9 gm/dL 05/02/2019 5:01 AM [facility] Platelet Count 143(L) 153 - 416 x10E9/L 05/02/2019 5:01 AM [facility] RDW-CV 15.9(H) 12.1 - 14.9 % 05/02/2019 5:01 AM [facility] MPV 12.7 9.4 - 12.9 fl 05/02/2019 5:01 AM [facility] Neutrophils % 63.3 44.0 - 73.0 % 05/02/2019 5:01 AM [facility] Lymphocytes % 10.1(L) 20.0 - 43.0 % 05/02/2019 5:01 AM [facility] Monocytes % 11.3 5.0 - 13.0 % 05/02/2019 5:01 AM [facility] Eosinophils % 14.0(H) 0.0 - 6.0 % 05/02/2019 5:01 AM [facility] Basophils % 0.8 0.0 - 2.0 % 05/02/2019 5:01 AM [facility] Immature Granulocytes 0.5 0 - 1 % 05/02/2019 5:01 AM [facility] Neutrophil Absolute 4.16 2.01 - 7.14 x10E9/L 05/02/2019 5:01 AM [facility] Lymphocytes Absolute 0.66(L) 1.07 - 3.94 x10E9/L 05/02/2019 5:01 AM [facility] Monocytes Absolute 0.74 0.26 - 1.07 x10E9/L 05/02/2019 5:01 AM [facility] Eosinophils Absolute 0.92(H) 0 - 0.47 x10E9/L 05/02/2019 5:01 AM [facility] Basophils Absolute 0.05 0 - 0.08 x10E9/L 05/02/2019 5:01 AM [facility] Immature Granulocytes Absolute 0.03 0.00 - 0.06 x10E9/L 05/02/2019 5:01 AM [facility] nRBC Auto 0 /100 WBC 05/02/2019 5:01 AM [facility] Blood BLOOD SPECIMEN / Unknown Lab Venipuncture / Unknown 05/02/2019 4:10 AM ASSEMBLY MACHINE SET UP MECHANIC 05/02/2019 4:52 AM ASSEMBLY MACHINE SET UP MECHANIC Kev Ordonez MD LAB - HEMATOLOGY ORD ERABLES [facility] [address] [place] [id number] * ECHOCARDIOGRAM 2D WITH DOPPLER (05/01/2019 6:07 PM ASSEMBLY MACHINE SET UP MECHANIC) 05/01/2019 6:07 PM ASSEMBLY MACHINE SET UP MECHANIC Narrative [facility] CARDIOLOGY - 05/02/2019 9:34 AM [facility] [address] [place] [address] Transthoracic Echocardiogram 2D, M-mode, Doppler, and Color Doppler Patient: JOSÉ MIGUEL KEYS MR number: [id number] Height: 71 in Weight: 219.6 lb BSA: 2.2 m?? Study date: 01-May-2019 : 1950 Age: 68 years Gender: Male Race: Allergies: PENICILLINS, LEVOFLOXACIN, SCOPOLAMINE Manufacturer Representative: ??Gómez Finch Referring Physician: ??Kev Ordonez MD [...] Procedure Note Constantino Sims MD - 05/02/2019 [place] [address] Transthoracic Echocardiogram 2D, M-mode, Doppler, and Color Doppler Patient: JOSÉ MIGUEL KEYS MR number: [id number] Height: 71 in Weight: 219.6 lb BSA: 2.2 m?? Study date: 01-May-2019 : 1950 Age: 68 years Gender: Male Race: Allergies: PENICILLINS, LEVOFLOXACIN, SCOPOLAMINE Manufacturer Representative: Gómez Finch Referring Physician: Kev Ordonez MD [...] Ordonez MD ECHO ORDERABLES Performing Organization Address [facility] Co de Phone Number [facility] CARDIOLOG[facility] [address] [place] [address] * EKG 12-LEAD (05/01/2019 3:54 PM ASSEMBLY MACHINE SET UP MECHANIC) [facility] Ventricular Rate 82 BPM [facility] Atrial Rate 312 BPM [facility] QRS Duration ms 90 ms [facility] Q-T Interval ms 380 ms [facility] QTC Calculation (Bezet) 443 ms [facility] Calculated R [place] -9 degrees [facility]USE Calculated T [place] 42 degrees [facility] Interpretation EKG ATRIAL FIBRILLATION WITH PREMATURE VENTRICULAR OR ABERRANTLY CONDUCTED COMPLEXES ABNORMAL ECG Confirmed by MD Jane, Zhang ([id number]) on 05/02/2019 8:32:37 AM [facility] MUSE 05/01/2019 3:54 PM ASSEMBLY MACHINE SET UP MECHANIC 05/02/2019 8:32 AM ASSEMBLY MACHINE SET UP MECHANIC Kev Ordonez MD ECG ORDERABLES Performing Organization Address City/[facility] Co de Phone Number [facility] MUSE * XR CHEST 1VW PORTABLE (05/01/2019 3:41 PM ASSEMBLY MACHINE SET UP MECHANIC) Anatomical Region Laterality Modality Chest Radiographic Shama ging 05/01/2019 3:49 PM ASSEMBLY MACHINE SET UP MECHANIC Narrative 05/01/2019 3:50 PM ASSEMBLY MACHINE SET UP MECHANIC Chest one view 1525 hours HISTORY: Infected [...] right lung is clear. Reading Radiologist: Yasmany Meidna MD on 05/01/2019 at 3:50 PM Kev Ordonez MD DIAGNOSTIC IMAGING O RDERABLES * (ABNORMAL) VANCOMYCIN LEVEL TROUGH (05/01/2019 7:49 AM ASSEMBLY MACHINE SET UP MECHANIC) Pathologist [facility] Vancomycin Trough 8.1(L) 10.0 - 20.0 ug/mL 05/01/2019 8:41 AM [facility] Blood BLOOD SPECIMEN / Unknown Lab Venipuncture / Unknown 05/01/2019 7:49 AM ASSEMBLY MACHINE SET UP MECHANIC 05/01/2019 8:12 AM ASSEMBLY MACHINE SET UP MECHANIC Armida Gomez MD LAB - CHEMISTRY [facility] Organization Address City/State/ZIP Co de Phone Number [facility] [address] [place], [place] [id number] * BASIC METABOLIC PANEL (CALCIUM TOTAL) (05/01/2019 2:44 AM ASSEMBLY MACHINE SET UP MECHANIC) Pathologist [facility] Glucose 89 70 - 105 mg/dL 05/01/2019 4:30 AM [facility] Sodium 141 136 - 145 mmol/L 05/01/2019 4:30 AM [facility] Potassium 4.7 3.5 - 4.7 mmol/L 05/01/2019 4:30 AM [facility] Chloride 106 98 - 107 mmol/L 05/01/2019 4:30 AM [facility] CO2 26 23 - 31 mmol/L 05/01/2019 4:30 AM [facility] Calcium 9.8 8.4 - 10.4 mg/dL 05/01/2019 4:30 AM [facility] Anion Gap 9 8 - 16 mmol/L 05/01/2019 4:30 AM [facility] BUN 25 8.4 - 25.7 mg/dL 05/01/2019 4:30 AM [facility] Creatinine 1.04 0.72 - 1.25 mg/dL 05/01/2019 4:30 AM [facility] eGFR by MDRD >60 mL/min/1.7 3m2 05/01/2019 4:30 AM [facility] eGFR by MDRD >60 mL/min/1.7 3m2 05/01/2019 4:30 AM [facility] Blood BLOOD SPECIMEN / Unknown Lab Venipuncture / Unknown 05/01/2019 2:44 AM ASSEMBLY MACHINE SET UP MECHANIC 05/01/2019 3:34 AM ASSEMBLY MACHINE SET UP MECHANIC Kev Ordonez MD LAB - CHEMISTRY [facility] Organization Address City/State/[facility] Co de Phone Number [facility] [address] [place] [address] * (ABNORMAL) CBC W AUTO DIFFERENTIAL (05/01/2019 2:44 AM ASSEMBLY MACHINE SET UP MECHANIC) WBC 7.2 4.4 - 10.7 x10E9/L 05/01/2019 3:58 AM [facility] WBC Corrected 05/01/2019 3:58 AM [facility] RBC 3.98 3.80 - 5.40 x10E12/L 05/01/2019 3:58 AM [facility] Hemoglobin 10.6(L) 12.0 - 17.6 gm/dL 05/01/2019 3:58 AM [facility] Hematocrit 35.6 35.2 - 51.7 % 05/01/2019 3:58 AM [facility] MCV 89.4 80.7 - 98.3 fl 05/01/2019 3:58 AM [facility] MCH 26.6(L) 26.7 - 34.0 pg 05/01/2019 3:58 AM [facility] MCHC 29.8(L) 30.8 - 35.9 gm/dL 05/01/2019 3:58 AM [facility] Platelet Count 148(L) 153 - 416 x10E9/L 05/01/2019 3:58 AM [facility] RDW-CV 15.9(H) 12.1 - 14.9 % 05/01/2019 3:58 AM [facility] MPV 13.7(H) 9.4 - 12.9 fl 05/01/2019 3:58 AM [facility] Neutrophils % 62.7 44.0 - 73.0 % 05/01/2019 3:58 AM [facility] Lymphocytes % 11.7(L) 20.0 - 43.0 % 05/01/2019 3:58 AM [facility] Monocytes % 11.7 5.0 - 13.0 % 05/01/2019 3:58 AM [facility] Eosinophils % 12.8(H) 0.0 - 6.0 % 05/01/2019 3:58 AM [facility] Basophils % 0.8 0.0 - 2.0 % 05/01/2019 3:58 AM [facility] Immature Granulocytes 0.3 0 - 1 % 05/01/2019 3:58 AM [facility] Neutrophil Absolute 4.53 2.01 - 7.14 x10E9/L 05/01/2019 3:58 AM [facility] Lymphocytes Absolute 0.84(L) 1.07 - 3.94 x10E9/L 05/01/2019 3:58 AM [facility] Monocytes Absolute 0.84 0.26 - 1.07 x10E9/L 05/01/2019 3:58 AM [facility] Eosinophils Absolute 0.92(H) 0 - 0.47 x10E9/L 05/01/2019 3:58 AM [facility] Basophils Absolute 0.06 0 - 0.08 x10E9/L 05/01/2019 3:58 AM [facility] Immature Granulocytes Absolute 0.02 0.00 - 0.06 x10E9/L 05/01/2019 3:58 AM [facility] nRBC Auto 0 /100 WBC 05/01/2019 3:58 AM [facility] Blood BLOOD SPECIMEN / Unknown Lab Venipuncture / Unknown 05/01/2019 2:44 AM ASSEMBLY MACHINE SET UP MECHANIC 05/01/2019 3:34 AM [facility] Kev Ordonez MD LAB - HEMATOLOGY ORD ERABLES Performing Organization Address [facility] Co de Phone Number [facility] [address] [place] [phone] * PT-INR (04/30/2019 2:42 AM [facility]) Pathologist [facility] PT 13.9 12.1 - 14.8 sec 04/30/2019 3:40 AM [facility] INR 1.1 0.9 - 1.1 04/30/2019 3:40 AM [facility] Blood BLOOD SPECIMEN / Unknown Lab Venipuncture / Unknown 04/30/2019 2:42 AM ASSEMBLY MACHINE SET UP MECHANIC 04/30/2019 3:13 AM [facility] Narrative [facility] - 04/30/2019 3:40 AM [facility] Conventional Warfarin Anticoagulant Therapy: INR Reference Range: ??2.0-3.0 Intensive Warfarin Anticoagulant Therapy: INR Reference Range: ? 2.5-3.5 Yasmany Oh MD LAB - COAGULATION OR DERABLES Performing Organization Address [facility] Co de Phone Number [facility] [address] [place] [phone] * (ABNORMAL) COMPREHENSIVE METABOLIC PANEL (04/30/2019 2:42 AM [facility]) [facility] Glucose 101 70 - 105 mg/dL 04/30/2019 3:47 AM [facility] Sodium 138 136 - 145 mmol/L 04/30/2019 3:47 AM [facility] Potassium 3.4(L) 3.5 - 4.7 mmol/L 04/30/2019 3:47 AM [facility] Chloride 105 98 - 107 mmol/L 04/30/2019 3:47 AM [facility] CO2 26 23 - 31 mmol/L 04/30/2019 3:47 AM [facility] Calcium 9.5 8.4 - 10.4 mg/dL 04/30/2019 3:47 AM [facility] Anion Gap 7(L) 8 - 16 mmol/L 04/30/2019 3:47 AM [facility] BUN 24 8.4 - 25.7 mg/dL 04/30/2019 3:47 AM [facility] Creatinine 1.00 0.72 - 1.25 mg/dL 04/30/2019 3:47 AM ASSEMBLY MACHINE SET UP MECHANIC [facility] Alkaline Phosphatase 188(H) 40 - 150 U/L 04/30/2019 3:47 AM ASSEMBLY MACHINE SET UP MECHANIC [facility] ALT 27 0 - 61 U/L 04/30/2019 3:47 AM ASSEMBLY MACHINE SET UP MECHANIC [facility] AST 30 5 - 34 U/L 04/30/2019 3:47 AM ASSEMBLY MACHINE SET UP MECHANIC [facility] Protein Total 6.9 6.4 - 8.3 gm/dL 04/30/2019 3:47 AM ASSEMBLY MACHINE SET UP MECHANIC [facility] Albumin 3.5 3.2 - 4.6 gm/dL 04/30/2019 3:47 AM [facility] Bilirubin Total 0.5 0.2 - 1.2 mg/dL 04/30/2019 3:47 AM ASSEMBLY MACHINE SET UP MECHANIC [facility] eGFR by MDRD >60 mL/min/1.7 3m2 04/30/2019 3:47 AM ASSEMBLY MACHINE SET UP MECHANIC [facility] eGFR by MDRD >60 mL/min/1.7 3m2 04/30/2019 3:47 AM [facility] Blood BLOOD SPECIMEN / Unknown Lab Capillary / Unknown 04/30/2019 2:42 AM ASSEMBLY MACHINE SET UP MECHANIC 04/30/2019 3:13 AM ASSEMBLY MACHINE SET UP MECHANIC Yasmany Oh MD LAB - CHEMISTRY [facility] Organization Address City/State/ZIP Co de Phone Number [facility] [address] [place] [address] * (ABNORMAL) CBC W AUTO DIFFERENTIAL (04/30/2019 2:42 AM ASSEMBLY MACHINE SET UP MECHANIC) [facility] WBC 7.9 4.4 - 10.7 x10E9/L 04/30/2019 3:24 AM ASSEMBLY MACHINE SET UP MECHANIC [facility] WBC Corrected 04/30/2019 3:24 AM [facility] RBC 4.01 3.80 - 5.40 x10E12/L 04/30/2019 3:24 AM [facility] Hemoglobin 10.5(L) 12.0 - 17.6 gm/dL 04/30/2019 3:24 AM [facility] Hematocrit 35.3 35.2 - 51.7 % 04/30/2019 3:24 AM ASSEMBLY MACHINE SET UP MECHANIC [facility] MCV 88.0 80.7 - 98.3 fl 04/30/2019 3:24 AM [facility] MCH 26.2(L) 26.7 - 34.0 pg 04/30/2019 3:24 AM [facility] MCHC 29.7(L) 30.8 - 35.9 gm/dL 04/30/2019 3:24 AM [facility] Platelet Count 159 153 - 416 x10E9/L 04/30/2019 3:24 AM [facility] RDW-CV 15.9(H) 12.1 - 14.9 % 04/30/2019 3:24 AM [facility] MPV 12.9 9.4 - 12.9 fl 04/30/2019 3:24 AM [facility] Neutrophils % 64.6 44.0 - 73.0 % 04/30/2019 3:24 AM [facility] Lymphocytes % 10.3(L) 20.0 - 43.0 % 04/30/2019 3:24 AM [facility] Monocytes % 10.2 5.0 - 13.0 % 04/30/2019 3:24 AM [facility] Eosinophils % 14.0(H) 0.0 - 6.0 % 04/30/2019 3:24 AM [facility] Basophils % 0.6 0.0 - 2.0 % 04/30/2019 3:24 AM [facility] Immature Granulocytes 0.3 0 - 1 % 04/30/2019 3:24 AM [facility] Neutrophil Absolute 5.09 2.01 - 7.14 x10E9/L 04/30/2019 3:24 AM [facility] Lymphocytes Absolute 0.81(L) 1.07 - 3.94 x10E9/L 04/30/2019 3:24 AM [facility] Monocytes Absolute 0.80 0.26 - 1.07 x10E9/L 04/30/2019 3:24 AM [facility] Eosinophils Absolute 1.10(H) 0 - 0.47 x10E9/L 04/30/2019 3:24 AM [facility] Basophils Absolute 0.05 0 - 0.08 x10E9/L 04/30/2019 3:24 AM [facility] Immature Granulocytes Absolute 0.02 0.00 - 0.06 x10E9/L 04/30/2019 3:24 AM ASSEMBLY MACHINE SET UP MECHANIC [facility] nRBC Auto 0 /100 WBC 04/30/2019 3:24 AM ASSEMBLY MACHINE SET UP MECHANIC [facility] Blood BLOOD SPECIMEN / Unknown Lab Venipuncture / Unknown 04/30/2019 2:42 AM ASSEMBLY MACHINE SET UP MECHANIC 04/30/2019 3:13 AM ASSEMBLY MACHINE SET UP MECHANIC Yasmany Oh MD LAB - HEMATOLOGY ORD ERABLES [facility] [address] [place] [address] * CULTURE ABSCESS+GRAM STAIN (04/29/2019 9:41 PM ASSEMBLY MACHINE SET UP MECHANIC) Culture No growth UMESH 05/03/2019 8:32 AM ASSEMBLY MACHINE SET UP MECHANIC [facility] Gram Stain Rare Polymorphonuclear cells 05/03/2019 8:32 AM ASSEMBLY MACHINE SET UP MECHANIC [facility] Gram Stain No organisms seen 019 8:32 AM [facility]CROBIOLOG[facility] Microbiology ENTIRE HIP REGION / Unknown Collection / Unknown 04/29/2019 9:41 PM ASSEMBLY MACHINE SET UP MECHANIC 04/29/2019 11:20 PM ASSEMBLY MACHINE SET UP MECHANIC Armida Gomez MD LAB - MICROBIOLOGY O RDERABLES [facility] [address] [place] [address], [facility] [phone] * (ABNORMAL) CULTURE VRE (04/29/2019 9:41 PM ASSEMBLY MACHINE SET UP MECHANIC) Culture Growth of Enterococcus species vancomycin-resis tant (VRE)(A) UMESH 05/01/2019 6:09 AM [facility]CRO[facility] Microbiology ENTIRE RECTUM / Unknown Collection / Unknown 04/29/2019 9:41 PM ASSEMBLY MACHINE SET UP MECHANIC 04/29/2019 11:20 PM ASSEMBLY MACHINE SET UP MECHANIC Narrative [facility] - 05/01/2019 6:09 AM ASSEMBLY MACHINE SET UP MECHANIC For vancomycin-resistant enterococci (VRE), contact precautions are required. For any questions, call Infection Prevention. Yasmany Oh MD LAB - MICROBIOLOGY O RDERABLES [facility] [address] [place] [address], [facility] [phone] * CULTURE MRSA (04/29/2019 9:41 PM ASSEMBLY MACHINE SET UP MECHANIC) Culture Negative for methicillin-resist ant Staphylococcus aureus (MRSA) UMESH 05/01/2019 5:24 AM ASSEMBLY MACHINE SET UP MECHANIC [facility] Microbiology ENTIRE RECTUM / Unknown Collection / Unknown 04/29/2019 9:41 PM ASSEMBLY MACHINE SET UP MECHANIC 04/29/2019 11:20 PM ASSEMBLY MACHINE SET UP MECHANIC Yasmany Oh MD LAB - MICROBIOLOGY O RIO Performing Organization Address City/[facility]/ZIP Co de Phone Number [facility] [address] [place] [address], [facility] [phone] * CULTURE BLOOD (04/29/2019 7:09 PM ASSEMBLY MACHINE SET UP MECHANIC) Culture No growth day 5 UMESH 05/04/2019 10:00 PM ASSEMBLY MACHINE SET UP MECHANIC [facility] Blood PERIPHERAL BLOOD / Unknown Lab Venipuncture / Unknown 04/29/2019 7:09 PM ASSEMBLY MACHINE SET UP MECHANIC 04/29/2019 7:18 PM ASSEMBLY MACHINE SET UP MECHANIC Armida Gomez MD LAB - MICROBIOLOGY O RIO Performing Organization Address [facility] Co de Phone Number [facility] [address] [place] [address], [facility] [phone] * CULTURE BLOOD (04/29/2019 7:09 PM ASSEMBLY MACHINE SET UP MECHANIC) Culture No growth day 5 UMESH 05/04/2019 10:00 PM ASSEMBLY MACHINE SET UP MECHANIC [facility] Blood PERIPHERAL BLOOD / Unknown Lab Venipuncture / Unknown 04/29/2019 7:09 PM ASSEMBLY MACHINE SET UP MECHANIC 04/29/2019 7:18 PM ASSEMBLY MACHINE SET UP MECHANIC Armida Gomez MD LAB - MICROBIOLOGY O RIO Performing Organization Address [facility]/ZIP Co de Phone Number [facility] [address] [place] [address], [facility] [phone] * (ABNORMAL) CULTURE MRSA (04/29/2019 5:56 PM ASSEMBLY MACHINE SET UP MECHANIC) Culture Growth of Staphylococcus aureus methicillin-resist ant (MRSA)(A) UMESH 05/01/2019 5:19 AM ASSEMBLY MACHINE SET UP MECHANIC [facility] Microbiology SPECIMEN FROM NASAL FOSSAE / Unknown Collection / Unknown 04/29/2019 5:56 PM ASSEMBLY MACHINE SET UP MECHANIC 04/29/2019 5:56 PM ASSEMBLY MACHINE SET UP MECHANIC Narrative [facility] - 05/01/2019 5:19 AM ASSEMBLY MACHINE SET UP MECHANIC Methicillin-resistant Staphylococci (MRSA) are resistant to all currently available beta-lactam antibiotics with the exception of the newer cephalosporins with anti-MRSA activity. Contact precautions required. Yasmany Oh MD LAB - MICROBIOLOGY O RDERABLES [facility] [address] [place] [address], [facility] [phone] * XR HIP RIGHT 2VW OR MORE (04/29/2019 12:18 PM ASSEMBLY MACHINE SET UP MECHANIC) Anatomical Region Laterality Modality Pelvis, Lower Extremity Radiogra phic Imaging 04/29/2019 12:3 8 PM ASSEMBLY MACHINE SET UP MECHANIC Impressions 04/29/2019 12:57 PM ASSEMBLY MACHINE SET UP MECHANIC Satisfactory postop appearance. Edited by Alaina Alvarado on 04/29/2019 12:44 PM Reading Radiologist: Ash Bill MD on 04/29/2019 at 12:57 PM Narrative 04/29/2019 12:57 PM ASSEMBLY MACHINE SET UP MECHANIC RIGHT HIP. HISTORY: Pain. Views of the [...] METABOLIC PANEL (CALCIUM TOTAL) (04/29/2019 6:44 AM ASSEMBLY MACHINE SET UP MECHANIC) Glucose 102 70 - 105 mg/dL 04/29/2019 7:10 AM [facility] Sodium 140 136 - 145 mmol/L 04/29/2019 7:10 AM [facility] Potassium 3.6 3.5 - 4.7 mmol/L 04/29/2019 7:10 AM [facility] Chloride 107 98 - 107 mmol/L 04/29/2019 7:10 AM [facility] CO2 23 23 - 31 mmol/L 04/29/2019 7:10 AM [facility] Calcium 9.3 8.4 - 10.4 mg/dL 04/29/2019 7:10 AM [facility] Anion Gap 10 8 - 16 mmol/L 04/29/2019 7:10 AM [facility] BUN 30(H) 8.4 - 25.7 mg/dL 04/29/2019 7:10 AM [facility] Creatinine 1.14 0.72 - 1.25 mg/dL 04/29/2019 7:10 AM [facility] eGFR by MDRD >60 mL/min/1.7 3m2 04/29/2019 7:10 AM [facility] eGFR by MDRD >60 mL/min/1.7 3m2 04/29/2019 7:10 AM [facility] Blood BLOOD SPECIMEN / Unknown Lab Venipuncture / Unknown 04/29/2019 6:44 AM ASSEMBLY MACHINE SET UP MECHANIC 04/29/2019 6:51 AM ASSEMBLY MACHINE SET UP MECHANIC Yasmany Oh MD LAB - CHEMISTRY [place] KLINE [facility] LABORATORY [address] [place] [id number] * VANCOMYCIN LEVEL RANDOM (04/29/2019 6:44 AM [facility]) Vancomycin Random 10.5 ug/mL 04/29/2019 7:10 AM [facility] Blood BLOOD SPECIMEN / Unknown Lab Venipuncture / Unknown 04/29/2019 6:44 AM ASSEMBLY MACHINE SET UP MECHANIC 04/29/2019 6:51 AM ASSEMBLY MACHINE SET UP MECHANIC Narrative [facility] - 04/29/2019 7:10 AM ASSEMBLY MACHINE SET UP MECHANIC No reference range available for random Vancomycin levels. All results interpreted by ordering physician. 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 Diagnosis unknown Other unknown and unspecified cause of morbidity or mortality documented in this encounter Administered Medications Inactive Administered Medications - up to 3 most recent administrations Medication Order MAR Action Action Date Dose Rate Site 0.9% NaCl flush bag at 3 mL/hr, 250 mL, CONTINUOUS PRN, Starting on Tue05/02/19 at 0114, Until Tue05/06/19 at 1523, FLUSH BAG, Use for: IVPB flush $ New Bag/Syringe 05/06/2019 3:55 AM ASSEMBLY MACHINE SET UP MECHANIC 250 mL 3 mL/hr $ New Bag/Syringe 05/04/2019 5:17 AM ASSEMBLY MACHINE SET UP MECHANIC 250 mL 3 mL/h r $ New Bag/Syringe 05/02/2019 1:16 AM ASSEMBLY MACHINE SET UP MECHANIC 250 mL 3 mL/h r 0.9% NaCl infusion rate and volume at [...] 8 hours. $ Given 05/05/2019 9:21 PM ASSEMBLY MACHINE SET UP MECHANIC 3 mL $ Given 05/05/2019 1:20 PM ASSEMBLY MACHINE SET UP MECHANIC 3 mL $ Given 05/05/2019 6:20 AM ASSEMBLY MACHINE SET UP MECHANIC 3 mL acetaminophen (TYLENOL) tablet 650 mg 650 mg, Oral, EVERY 6 HOURS PRN, Mild Pain, Starting on Tue04/29/19 at 0545, Until Tue05/06/19 at 1523 $ Given 05/05/2019 9:18 PM ASSEMBLY MACHINE SET UP MECHANIC 650 mg $ Given 05/04/2019 9:14 AM ASSEMBLY MACHINE SET UP MECHANIC 650 mg $ Given 04/29/2019 4:40 PM ASSEMBLY MACHINE SET UP MECHANIC 650 mg albuterol (PROVENTIL;VENTOLIN) (5 MG/ML) 0.5% nebulizer solution 2.5 mg 2.5 mg, Inhalation, 4 TIMES DAILY, First dose on Tue04/29/19 at 0900, Until Discontinued, Dilute prior to administration via nebulization. $ Given 05/06/2019 9:27 AM ASSEMBLY MACHINE SET UP MECHANIC 2.5 mg $ Given 05/06/2019 1:27 AM ASSEMBLY MACHINE SET UP MECHANIC 2.5 mg $ Given 05/05/2019 7:23 PM ASSEMBLY MACHINE SET UP MECHANIC 2.5 mg tmaivhap-hltrrltvg-zwudzztdfxb (MAALOX;MYLANTA) suspension 15 mL 15 mL, Oral, EVERY 6 HOURS PRN, Heartburn, Starting on Tue05/04/19 at 1553, Until 05/06/19 at 1523, Shake well before using. $ Given 05/05/2019 9:33 PM ASSEMBLY MACHINE SET UP MECHANIC 15 mL $ Given 05/04/2019 9:14 PM ASSEMBLY MACHINE SET UP MECHANIC 15 mL $ Given 05/04/2019 6:16 PM ASSEMBLY MACHINE SET UP MECHANIC 15 mL apixaban (ELIQUIS) tablet 5 mg 5 mg, Oral, 2 TIMES DAILY, First dose on Tue05/02/19 at 2100, Until Discontinued $ Given 05/06/2019 9:08 AM ASSEMBLY MACHINE SET UP MECHANIC 5 mg $ Given 05/05/2019 9:19 PM ASSEMBLY MACHINE SET UP MECHANIC 5 mg $ Given 05/05/2019 9:08 AM ASSEMBLY MACHINE SET UP MECHANIC 5 mg budesonide-formoterol (SYMBICORT) 160-4.5 MCG/ACT inhaler 2 puff 2 puff, Inhalation, 2 TIMES DAILY, First dose on Tue04/29/19 at 0900, Until Discontinued, Rinse mouth after usage . WASTE DISPOSAL INSTRUCTION: Send to Pharmacy for Disposal. . $ Given 05/06/2019 9:39 AM ASSEMBLY MACHINE SET UP MECHANIC 2 puffs $ Given 05/05/2019 7:25 PM ASSEMBLY MACHINE SET UP MECHANIC 2 puffs $ Given 05/05/2019 7:52 AM ASSEMBLY MACHINE SET UP MECHANIC 2 puffs bumetanide (BUMEX) tablet 0.5 mg 0.5 mg, Oral, 2 TIMES DAILY, First dose on Tue05/01/19 at 1100, Until Discontinued $ Given 05/06/2019 9:08 AM ASSEMBLY MACHINE SET UP MECHANIC 0.5 mg $ Given 05/05/2019 4:37 PM ASSEMBLY MACHINE SET UP MECHANIC 0.5 mg $ Given 05/05/2019 9:08 AM ASSEMBLY MACHINE SET UP MECHANIC 0.5 mg diphenhydrAMINE (BENADRYL) capsule 25 mg 25 mg, Oral, EVERY 6 HOURS PRN, Itching, Starting on 04/29/19 at 0756, Until 05/06/19 at 1523 $ Given 05/06/2019 12:33 PM ASSEMBLY MACHINE SET UP MECHANIC 25 mg $ Given 05/05/2019 9:19 PM ASSEMBLY MACHINE SET UP MECHANIC 25 mg $ Given 05/05/2019 9:14 AM ASSEMBLY MACHINE SET UP MECHANIC 25 mg diphenhydrAMINE-zinc acetate (BENADRYL EXTRA STRENGTH) 2-0.1 % cream Topical, PRN, Itching, Starting on Tue05/01/19 at 1305, Until 05/06/19 at 1523, Apply to bilateral periorbital areas $ Given 05/02/2019 11:35 AM ASSEMBLY MACHINE SET UP MECHANIC $ Given 05/01/2019 9:44 PM ASSEMBLY MACHINE SET UP MECHANIC $ Given 05/01/2019 4:53 PM ASSEMBLY MACHINE SET UP MECHANIC docusate sodium (COLACE) capsule 100 mg 100 mg, Oral, DAILY, First dose on Tue05/03/19 at 1300, Until Discontinued $ Given 05/06/2019 9:09 AM ASSEMBLY MACHINE SET UP MECHANIC 100 mg $ Given 05/05/2019 9:09 AM ASSEMBLY MACHINE SET UP MECHANIC 100 mg $ Given 05/04/2019 9:14 AM ASSEMBLY MACHINE SET UP MECHANIC 100 mg doxycycline monohydrate capsule 100 mg 100 mg, Oral, EVERY 12 HOURS, First dose on 05/06/19 at 0945, Until Discontinued, Indication for anti-infective therapy: Suspected infection, Site of anti-infective therapy: Skin/soft tissue $ Given 05/06/2019 9:56 AM ASSEMBLY MACHINE SET UP MECHANIC 100 mg fentaNYL (PF) (SUBLIMAZE) injection 25 mcg 25 mcg, Intravenous, EVERY 4 HOURS PRN, Severe Pain, Starting on 04/29/19 at 0546, Until 05/06/19 at 1523 $ Given 05/03/2019 5:18 AM ASSEMBLY MACHINE SET UP MECHANIC 25 mcg $ Given 05/03/2019 2:03 AM ASSEMBLY MACHINE SET UP MECHANIC 25 mcg $ Given 05/02/2019 10:05 PM ASSEMBLY MACHINE SET UP MECHANIC 25 mcg hydrocortisone (DERMAREST) 1 % lotion Topical, 4 TIMES DAILY PRN, Itching, swelling, Starting on Tue05/02/19 at 0000, Until 05/06/19 at 1523, Apply to bilateral eyelids/periorbital areas. $ Given 05/02/2019 10:05 PM ASSEMBLY MACHINE SET UP MECHANIC metoprolol succinate XL 24hr (TOPROL XL) tablet 50 mg 50 mg, Oral, DAILY, First dose on 04/29/19 at 1730, Until Discontinued, May cut in half but do not crush or chew $ Given 05/06/2019 9:08 AM ASSEMBLY MACHINE SET UP MECHANIC 50 mg $ Given 05/05/2019 9:09 AM ASSEMBLY MACHINE SET UP MECHANIC 50 mg $ Given 05/04/2019 9:13 AM ASSEMBLY MACHINE SET UP MECHANIC 50 mg NaCl 0.9 % 1,000 mL with povidone-iodine (BETADINE) 35 mL irrigation PRN, Starting on Tue05/02/19 at 1435, Until Tue05/02/19 at 1519, Intra-op $ Given 05/02/2019 2:35 PM ASSEMBLY MACHINE SET UP MECHANIC 1,035 mL Operative Site oxyCODONE (immediate release) (ROXICODONE) tablet 10 mg 10 mg, Oral, EVERY 4 HOURS PRN, Moderate Pain, Starting on Kellen 05/03/19 at 1221, Until 05/06/19 at 1523, Moderate pain uncontrolled by tramadol $ Given 05/05/2019 7:27 AM ASSEMBLY MACHINE SET UP MECHANIC 10 mg $ Given 05/03/2019 7:00 PM ASSEMBLY MACHINE SET UP MECHANIC 10 mg $ Given 05/03/2019 12:40 PM ASSEMBLY MACHINE SET UP MECHANIC 10 mg potassium chloride ER (KLOR-CON M) tablet 40 mEq 40 mEq, Oral, 2 TIMES DAILY WITH MEALS, 2 doses, First dose on 05/06/19 at 0845, Last dose on 05/06/19 at 1800, Do not crush or chew. $ Given 05/06/2019 9:14 AM ASSEMBLY MACHINE SET UP MECHANIC 40 mEq tamsulosin (FLOMAX) capsule 0.4 mg 0.4 mg, Oral, AT BEDTIME, First dose on 04/29/19 at 2100, Until Discontinued, At the same time every day after a meal. Do not crush, chew $ Given 05/05/2019 9:19 PM ASSEMBLY MACHINE SET UP MECHANIC 0.4 mg $ Given 05/04/2019 9:13 PM ASSEMBLY MACHINE SET UP MECHANIC 0.4 mg $ Given 05/03/2019 10:02 PM ASSEMBLY MACHINE SET UP MECHANIC 0.4 mg tiotropium (SPIRIVA RESPIMAT) 2.5 MCG/ACT inhaler 2 puff 2 puff, Inhalation, DAILY, First dose on 04/29/19 at 0900, Until Discontinued $ Given 05/06/2019 9:39 AM ASSEMBLY MACHINE SET UP MECHANIC 2 puffs $ Given 05/05/2019 7:52 AM ASSEMBLY MACHINE SET UP MECHANIC 2 puffs $ Given 05/04/2019 7:55 AM ASSEMBLY MACHINE SET UP MECHANIC 2 puffs traMADol (ULTRAM) tablet 50 mg 50 mg, Oral, EVERY 6 HOURS PRN, Moderate Pain, Starting on 04/29/19 at 0546, Until 05/06/19 at 1523 $ Given 05/06/2019 9:09 AM ASSEMBLY MACHINE SET UP MECHANIC 50 mg $ Given 05/05/2019 7:30 AM ASSEMBLY MACHINE SET UP MECHANIC 50 mg $ Given 05/04/2019 9:13 PM ASSEMBLY MACHINE SET UP MECHANIC 50 mg vancomycin (VANCOCIN) 2 g in NaCl 0.9 % 6,000 mL irrigation PRN, Starting on Tue05/02/19 at 1435, Until Tue05/02/19 at 1519, Intra-op $ Given 05/02/2019 2:35 PM ASSEMBLY MACHINE SET UP MECHANIC 5,500 mL Operative Site vancomycin (VANCOCIN) injection PRN, Starting on Tue05/02/19 at 1435, Until Tue05/02/19 at 1519, Intra-op $ Given 05/02/2019 2:35 PM ASSEMBLY MACHINE SET UP MECHANIC 1,000 mg Operative Site documented in this encounter Active and Recently Administered Medications Times are shown in ASSEMBLY MACHINE SET UP MECHANIC. Scheduled Medication Order 05/04/2019 05/05/2019 05/06/2019 0.9% [...] 0312 ($ Given - Provider: Cee Boyce IN STORE MARKETING ASSOCIATE)0750 ($ Given - Provider: Guadalupe Her [employer] STORE MARKETING ASSOCIATE)1441 ($ Given - Provider: Guadalupe Her IN STORE MARKETING ASSOCIATE)2113 ($ Given - Provider: Genevieve Crowder [facility]) 0138 ($ Given - Provider: Mily Simental [facility])0752 ($ Given - Provider: Cleo Cota IN STORE MARKETING ASSOCIATE)1351 ($ Given - Provider: Cleo Cota IN STORE MARKETING ASSOCIATE)1923 ($ Given - Provider: Yoko Hale [facility]) 0127 ($ Given - Provider: Yoko Hale IN STORE MARKETING ASSOCIATE)0927 ($ Given - Provider: Tracy Goldsmith [facility])1400 (Due) apixaban (ELIQUIS) tablet 5 mg 5 [...] INSTRUCTION: Send to Pharmacy for Disposal. . 0755 ($ Given - Provider: Guadalupe Her RCP)2113 ($ Given - Provider: Genevieve Crowder IN STORE MARKETING ASSOCIATE) 0752 ($ Given - Provider: Cleo Cota IN STORE MARKETING ASSOCIATE)1925 ($ Given - Provider: Yoko Hale IN STORE MARKETING ASSOCIATE) 0939 ($ Given - Provider: Tracy Goldsmith IN STORE MARKETING ASSOCIATE) bumetanide (BUMEX) tablet 0.5 mg 0.5 mg, [...] mg, Oral, DAILY, First dose on Kellen 05/03/19 at 1300, Until Discontinued 0914 ($ Given [...] Montoya RN)2113 ($ Given - Provider: Jayshree iGlliam) 0909 ($ Given - Provider: Alvino Monson [...] RN) 211 ($ Given - Provider: Kristen Guadarrama RN) tqrhzonk-qcxypitnv-xvrb thicone (MAALOX;MYLANTA) suspension 15 mL 15 mL, [...] Jayshree Gilliam)0914 ($ Given - Provider: Alvino Monson RN)211 ($ Given - Provider: Kristen Guadarrama, DONTAE) 1233 ($ Given - Provider: Alvino Monson RN) diphenhydrAMINE-zinc acetate (BENADRYL EXTRA STRENGTH) 2-0.1 % cream Topical, PRN, Itching, Starting on 05/01/19 at 1305, Until 05/06/19 at 1523, Apply [...] Pain, Starting on Tue04/29/19 at 0546, Until Tue05/06/19 at 1523 0523 (Not Administered - Provider: [...] documented as of this encounter Care Teams Saas Architect Relationship Specialty Start Date End Date Briana Medeiros MD [address] [place], [place] [id number] PCP - General 02/15/18 02/22/22 documented as of this encounter
--- OUTSIDE RECORDS SUMMARY | 2024-05-24 23:38 | XMS_ITS | Encounter Summary ---
Author Organization [facility] Address [address] [place] [address] Care Team Providers Care Poly Operator Name Role Phone Briana Medeiros MD Primary Care Provider [phone] Encounter Details Date Type Department Care Team (Latest Contact Info) Description 02/27/2019 9:57 AM CDT Hospital Encounter [facility] [address] [place] [address] Larry Alexander MD [address] [address] [place] [address] Discharge Disposition: Home or Self Care Social [...] or have serious hearing difficult y? No 02/02/2019 Is person blind or have serious difficulty seein g? No 02/02/2019 Does person have serious dif ficulty walking/climbing stairs? No 02/02/2019 Does person have difficulty dressing/bathing? No 02/02/2019 Does person have difficulty doing errands alone? No 02/02/2019 Cognitive Status Response Date of Assessm ent Does person have difficulty concentrating/remembering/making decisions? No 02/02/2019 documented as of this encounter Medications at Time of Discharge Medication Sig Dispensed Refills Start Date End Date acetaminophen (TYLENOL) 325 MG tabletIndications:Oth er cirrhosis of liver (HCC) Take 2 (two) tablets by mouth every 4 hours as needed roflumilast (DALIRESP) 500 MCG tablet Take 1 (one) tablet by mouth once daily tamsulosin (FLOMAX) 0.4 MG capsuleIndications:Ot her cirrhosis of liver (HCC) Take 1 (one) capsule by mouth at bedtime 1 02/08/2018 albuterol (PROVENTIL;VENTOLIN) (5 MG/ML) 0.5% nebulizer solution 2.5 mg. 1 Box 11 09/04/2017 10/12/2023 Ascorbic Acid 500 MGIndications:Other cirrhosis of liver (HCC) Take 500 mg by mouth 2 times daily 04/24/2019 aspirin (ASPIRIN) 325 MG tablet Take 1 tablet by mouth 2 times daily for 30 days 60 tablet 02/15/2019 03/17/2019 baclofen (LIORESAL) 10 MG tabletIndications:Oth er cirrhosis of liver (HCC) Take 10 mg by mouth once daily 0 02/01/2018 10/21/2020 benzonatate (TESSALON) 200 MG capsule Take 1 capsule by mouth 3 times daily as needed for Cough 02/15/2019 10/12/2023 bisacodyl (DULCOLAX) 10 MG suppository Insert 1 suppository into the rectum once daily as needed for Constipation 02/15/2019 04/24/2019 clotrimazole (LOTRIMIN AF) 1 % cream Apply to affected area 2 times daily 02/15/2019 04/24/2019 diphenhydrAMINE (BENADRYL) 25 MG capsule Take 1 (one) capsule by mouth 2 times daily 10/12/2023 lactulose (CHRONULAC) 10 GM/15ML solution Take 30 mL by mouth 3 times daily as needed for Constipation 02/15/2019 04/24/2019 metoprolol tartrate (LOPRESSOR) 25 MG tablet Take 1 tablet by mouth 2 times daily 02/15/2019 04/29/2019 omeprazole (PRILOSEC) 40 MG capsule Take 1 (one) capsule by mouth daily before breakfast 10/07/2022 oxyCODONE-acetaminoph en (PERCOCET) 10-325 MG tablet Take 1 tablet by mouth every 4 hours as needed 30 tablet 02/15/2019 04/24/2019 polyethylene glycol 3350 (MIRALAX) packet Take 17 g by mouth once daily 02/15/2019 08/28/2019 PREVIDENT 5000 BOOSTER PLUS 1.1 % as directed 4 10/29/2018 0 PROAIR HFA 108 (90 Base) MCG/ACT inhaler Inhale 2 puffs by mouth every 4 hours as needed 11/06/2018 12/30/2020 rifAMPin (RIFADIN) 300 MG capsuleIndications:Se ptic Arthritis Take 2 capsules by mouth once daily for 45 days Reasons: Bacterial Infectious Arthritis 60 capsule 1 02/15/2019 04/01/2019 senna-docusate (SENOKOT-S) 8.6-50 MG tablet Take 2 tablets by mouth once daily 02/15/2019 04/24/2019 SYMBICORT 160-4.5 MCG/ACT inhalerIndications:Ot her cirrhosis of liver (HCC) INHALE 2 PUFFS BY MOUTH TWICE A DAY 6 02/01/2018 08/17/2021 vancomycin HCl 1.25 g 1,250 mg in 0.9% NaCl 0.9 % 250 mL 1,250 mg by Intravenous route every 24 hours for 45 days 1 Each 02/15/2019 04/01/2019 vitamin D, ergocalciferol, (DRISDOL) 23901 UNITS capsuleIndications:Ot her cirrhosis of liver (HCC) Take 50,000 Units by mouth every 7 days 0 02/02/2018 03/21/2023 warfarin (COUMADIN) 4 MG tablet Take 1 tablet by mouth once daily 100 tablet 11 02/15/2019 04/24/2019 warfarin (COUMADIN) 5 MG tablet Take 1 tablet by mouth once daily 02/15/2019 04/24/2019 documented as of this encounter Plan of Treatment Upcoming Encounters Date Type Department Care Team (Late st Contact Info) Description 07/09/2024 12:30 PM BUDGET REPORT CLERK Office Visit [facility] [address] [place] [address], [place] [address] Twin Miller MD [address] [place] [address] [place] [address] 09/19/2024 2:00 PM CDT Office Visit [facility] - [facility] [address] [place] [address] Larry Alexander MD [address] [place] [address] documented as of this encounter Goals Goal [...] XR HIP RIGHT 2VW OR MORE Routine 02/27/2019 10:09 AM CDT Arthralgia of hip, unspecified laterality documented in this encounter Results * XR HIP RIGHT 2VW OR MORE (02/27/2019 10:09 AM CDT) Anatomical Region Laterality Modality Pelvis, Lower Extremity [facility] 02/27/2019 10:1 7 AM CDT Impressions 02/27/2019 10:21 AM CDT IMPRESSION: Right total hip arthroplasty without acute osseous abnormality. This report was electronically signed by SILAS NGUYỄN MD ??on 02/27/2019 10:21 AM . Narrative 02/27/2019 10:21 AM CDT Exam: 1. XR PELVIS 1 view 2. XR HIP RIGHT two-view History: ??hip pain , right hip infection with abscess Comparison: Pelvis and right hip radiographs dated 02/02/2019 from [facility]. CT Right hip dated 02/02/2019 from [place], [place]. Findings: Right hip: Total hip arthroplasty is present. The prosthesis is intact and there is no suspicious periprosthetic lucency. No acute fracture or dislocation is seen. A few foci of heterotopic ossification are noted around the hip. A skin staple line is noted laterally. Soft tissue swelling is present. Pelvis: Left total hip arthroplasty is present as well. No acute displaced fracture of the pelvis is seen. Enthesophytes are noted. Lumbar spondylosis is evident. Procedure Note Silas Nguyễn MD - 02/27/2019 Exam: 1. XR PELVIS 1 view 2. XR HIP RIGHT two-view History: hip pain , right hip infection with abscess [facility] 02/02/[facility] [place]. Findings: Right hip: Total hip arthroplasty is present. The prosthesis is intact and there is no suspicious periprosthetic lucency. No acute fracture or dislocationis seen. A few foci of heterotopic ossification are noted around the hip. A skin staple line is noted laterally. Soft tissue swelling is present. Pelvis: Left total hip arthroplasty is present as well. No acute displaced fracture of the pelvis is seen. Enthesophytes are noted. Lumbar spondylosis is evident. IMPRESSION: Right total hip arthroplasty without acute osseous abnormality. This report was electronically signed by SILAS NGUYỄN MD on02/27/2019 10:21 AM . Larry Alexander MD DIAGNOSTIC IMAGING ORDERABLES documented in this encounter Visit Diagnoses Diagnosis Arthralgia of hip, unspecified laterality documented in this encounter Additional Health Concerns Infection Onset Date Last Indicated Resolved Time MRSA 09/12/2017 04/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 Care Teams Poly Operator Relationship Specialty Start Date End Date Briana Medeiros MD [address] [place] [id number] PCP - General 02/15/18 02/22/22 documented as of this encounter
--- OUTSIDE RECORDS SUMMARY | 2024-05-24 23:38 | XMS_ITS | Encounter Summary ---
Author Organization [facility] Address [address] [place] [address] Care Team Providers Care Security Systems Installer Name Role Phone Briana Medeiros MD Primary Care Provider [phone] Reason for Visit * Reason Comments Infectious Disease Wound Care Encounter Details Date Type Department Care Team (Latest Contact Info) Description 04/24/2019 9:36 AM BIOFUELS ENGINEERING MANAGER - 04/24/2019 11:04 AM BIOFUELS ENGINEERING MANAGER Hospital Encounter Wound Care at [facility] [address] [place] [id number] Raysa Nevarez MD [address] [place] [address] Discharge Disposition: Home or Self Care Social [...] Sign Reading Time Taken Comments Blood Pressure 116/79 04/24/2019 9:58 AM BIOFUELS ENGINEERING MANAGER Pulse 78 04/24/2019 9:58 AM BIOFUELS ENGINEERING MANAGER Temperature 36.5 ??C (97.7 ??F) 04/24/2019 9:58 AM CS T Respiratory Rate 20 04/24/2019 9:58 AM BIOFUELS ENGINEERING MANAGER Oxygen Saturation - - Inhaled Oxygen Concentration [...] (one) tablet by mouth daily with breakfast roflumilast (DALIRESP) 500 MCG tablet Take 1 [...] capsule by mouth 2 times daily 10/12/2023 metoprolol tartrate (LOPRESSOR) 25 MG tablet Take 1 tablet by mouth 2 times daily 02/15/2019 04/29/2019 nystatin (MYCOSTATIN) 742947 UNIT/GM powder Apply to affected area 2 times daily as needed Apply to groin area twice a day as needed. omeprazole (PRILOSEC) 40 MG capsule Take 1 (one) capsule by mouth daily before breakfast 10/07/2022 polyethylene glycol 3350 (MIRALAX) packet Take 17 g by mouth once daily 02/15/2019 08/28/2019 potassium chloride ER (KLOR-CON M) 20 MEQ tablet Take 1 (one) tablet by mouth once daily 11/03/2023 potassium chloride ER (KLOR-CON) 20 MEQ tablet TAKE 1 TABLET BY MOUTH EVERY DAY NEEDED FOR HYPOKALEMIA 3 04/10/2019 04/29/2019 PREVIDENT 5000 BOOSTER PLUS 1.1 % as directed 4 10/29/2018 08/28/2019 PROAIR HFA 108 (90 Base) MCG/ACT inhaler Inhale 2 puffs by mouth every 4 hours as needed 11/06/2018 12/31/19 21 SYMBICORT 160-4.5 MCG/ACT inhalerIndications:Oth er cirrhosis of liver (HCC) INHALE 2 PUFFS BY MOUTH TWICE A DAY 6 02/01/2018 08/17/2021 tiotropium (SPIRIVA RESPIMAT) 2.5 MCG/ACT inhaler Inhale 2 puffs by mouth once daily 08/17/2021 triamcinolone acetonide (KENALOG) 0.1 % cream Apply to affected area 2 times daily as needed Apply to rash daily as needed. 10/12/2023 vitamin D, ergocalciferol, (DRISDOL) 15722 UNITS capsuleIndications:Oth er cirrhosis of liver (HCC) Take 50,000 Units by mouth every 7 days 0 02/02/2018 03/21/2023 documented as of this encounter Progress Notes * Raysa Nevarez MD - 04/24/2019 10:47 AM CST Infectious Disease Progress Note Admit Date: 04/24/2019 9:36 AM Consult date: 04/24/2019 68 year oldmale Clinical Course Seen in the [facility] Care Center Was able to ambulate with walker Had recently pneumonia while in the skilled facility treated No difficulty taking suppression with doxycycline Data Vitals: 04/24/19 0958 BP: 116/79 Pulse: 78 Resp: 20 Temp: 97.7 ??F (36.5 ??C) Temp (30hrs) Max:97.7 ??F (36.5 ??C) Exam General appearance: alert, cooperative, no distress Lungs: breath sounds normal and symmetric; no rales or wheezes Heart: regular rhythm, normal S1 and S2, without murmurs, gallops or rubs Abdomen: soft without mass, non-tender, with normal bowel sounds Extremities: Right hip incision clean there is no drainage some puffiness no tenderness Medications Lines Recent Labs Component Name 02/15/19 0307 02/14/19 0258 02/13/19 0440 WBC 8.5 9.6 8.9 HGB 7.4* 7.7* 7.6* HCT 25.0* 26.0* 25.1* PLTCOUNT 284 288 287 Recent Labs Component Name 02/15/19 0307 02/14/19 0346 02/13/19 0440 SODIUM 141 141 142 POTASSIUM 3.7 3.7 3.6 CHLORIDE 106 108* 106 CO2 28 28 28 BUN 17 18 17 CREATININE 1.02 1.10 0.97 GLUCOSE 98 113* 106 CALCIUM 8.6 8.4 8.6 Recent Labs Component Name 02/03/19 0106 09/06/17 1157 09/04/17 0447 ALBUMIN 3.1* - - ALKPHOS 304* 204* 190* ALT 21 10 12 AST 20 21 27 TBIL 1.0 - - TPROT 7.0 - - No results for input(s): CK in the last 23089 hours. No results for input(s): SEDRATE in the last 61690 hours. Recent Labs Component Name 08/15/17 0348 08/09/17 0745 08/05/17 0445 CRP 4.1* 32.0* 14.4* No results for input(s): CDIFFTOXINAB in the last 06403 hours. 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 Errors may havebeen missed upon review. Raysa Nevarez MD UELS ENGINEERING MANAGER * Karen Joevl RN - 04/24/2019 10:05 AM CST Patient presents to Wound Center for new visit to consult with Dr. Nevarez. Initial nursing assessment done, new wound assessed, measured and photographed, screenings completed on Nutrition, Safety, Abuse, Home Function, Advance Directive, Fall Assessment, Rex Scale, and pain. Initial care plan and education assessment completed. Home care: [facility] Supplies: no UELS ENGINEERING MANAGER documented in this encounter Plan of Treatment Upcoming Encounters Date Type Department Care Team (Late st Contact Info) Description 07/09/2024 12:30 PM BIOFUELS ENGINEERING MANAGER [facility] [place] [address] [place] [address], [place] [id number] Twin Miller MD [address] [place] [address] [place] [address] 09/19/2024 2:00 PM CDT Office Visit [facility] - Orthopedic Surgery [address] [place] [id number] Larry Alexander MD [address] [address] documented as of this encounter Goals Goal [...] as of this encounter Results * (ABNORMAL) ERYTHROCYTE SEDIMENTATION RATE (04/24/2019 11:41 AM BIOFUELS ENGINEERING MANAGER) Erythrocyte Sedimentation Rate Automated 70(H) 0 - 20 MM/HR 04/24/2019 12:25 PM BIOFUELS ENGINEERING MANAGER [facility] Blood BLOOD SPECIMEN / Unknown Lab Venipuncture / Unknown 04/24/2019 11:41 AM BIOFUELS ENGINEERING MANAGER 04/24/2019 11:41 AM BIOFUELS ENGINEERING MANAGER Raysa Nevarez MD LAB - HEMATOLOGY ORD ERABLES Performing Organization Address City/[facility]/ZIP Co de Phone Number [facility] [address] [place] [id number] * (ABNORMAL) C-REACTIVE PROTEIN (04/24/2019 11:40 AM BIOFUELS ENGINEERING MANAGER) C-Reactive Protein 1.41(H) <=0.50 mg/dL 04/24/2019 12:51 PM BIOFUELS ENGINEERING MANAGER [facility] Blood BLOOD SPECIMEN / Unknown Lab Venipuncture / Unknown 04/24/2019 11:40 AM BIOFUELS ENGINEERING MANAGER 04/24/2019 11:40 AM BIOFUELS ENGINEERING MANAGER Raysa Nevarez MD LAB - CHEMISTRY ROYCE KLINE Performing Organization Address City/[facility]/ZIP Co de Phone Number [facility] [address] [place] [id number] documented in this encounter Visit Diagnoses Diagnosis 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
--- OUTSIDE RECORDS SUMMARY | 2024-05-24 23:38 | XMS_ITS | Encounter Summary ---
Author Organization [facility] Address [address] [place] [address] Care Team Providers Care Slide Fasteners Inspector Name Role Phone Briana Medeiros MD Primary Care Provider [phone] Reason for Visit * Auth/Cert Specialty Diagnoses / Procedures Referred By Contac t Referred To Contact Diagnoses Prosthetic Joint Infection Referral ID Status Reason Start Date Expiration Date Visits Re quested Visits Authorized [id number] 1 1 Encounter Details Date Type Department Care Team (Late st Contact Info) Description 05/02/2019 1:15 PM MANAGER CHEMISTRY Anesthesia Event [facility] [address] [place] [address] Andres Anton MD [address] [facility] [address] Anesthesia Record Procedure Summary Procedure Name Responsible Anesthesiologist Anesthesia Start Time Anesthesia Stop Time IRRIGATION AND DEBRIDEMENT RIGHT HIP ABSCESS (Right: Hip) Andres Anton MD 05/02/19 1315 05/02/19 1520 Events Date Time Event Comment 05/02/2019 1315 An Start 1315 An Start Data 1320 PT Reassessment 1320 Induction 1321 An Intubation 1345 Timeout Anesthesia part icipated in timeout at the time documented in the record by nursing. 1514 Extubation 1518 an stop data 1518 Electnc Sig 1518 ANPTO2 1520 An Stop Meds Name Total fentaNYL 250 mcg/5mL injection 100 mcg lidocaine 2% injection (20 mg/ml) 20 mg propofol 200mg/20mL injection 170 mg succinylcholine (ANECTINE) 100 mg/5 mL i njection 100 mg rocuronium 50mg/5mL injection 30 mg Phenylephrine HCl 10 MG/ML 100 mcg dexamethasone 4 mg/ml injection 4 mg ondansetron 4 mg/2mL injection 4 mg sugammadex 200 mg/2 mL injection 200 mg gentamicin (GARAMYCIN) 400 mg in 0.9% Na Cl 100 mL IVPB 400 mg tranexamic acid (CYKLOKAPRON) injection 1,000 mg 1,000 mg ceFAZolin 2 g IVPB 2 g lactated ringers infusion 1,000 mL phenylephrine 10mg in 250ml NS (ANES samm es in OR) 50 mL * Agents Name Insp. N2O Exp. Sevoflurane Exp. Desflurane Exp. N2O O2 Flow - Auxiliary O2 Insp. Sevoflurane Insp. Desflurane * Blood No blood administrations on file. Lines, Drains, and Airways Type Details Placement Removal Enteral - 09/15/17; 914; Dr. Guerra; PEG; Abdomen, Left; Well; 10/28/23 (removed long ago); [id number] by Denise Damon RN 10/28/232042 by Sonia Hunter, DONTAE Procedural Site (Incision) 02/08/19; Right; Hip; Right hip infection; 05/06/19; 202202/08/19 0000 by Karian Slaughter RN 05/06/192022 by Generic, Auto Release Peripheral IV Date: 04/29/19; Time : 2230; Orientation: Left, Posterior, Distal; Placed By: Duke Yousif RN 04/29/192229 by Moise Yousif RN 05/05/19 0936 by Alvino Monson RN ETT Date: 05/02/19; Time : 1321; Placed By: SYDNIE Gomez; Vent: easy mask; Induction: Standard IV; Blade Type: Juan; Blade Size: 4; Laryngoscopy View: Grade 1 (full cords); Intubation Adjuncts: Stylet, Cricoid Pressure; Tube: Endotracheal Tube; Placement: Oral; Tube Type: Cuffed-inflated; Tube Size(mm): 8 MM; Depth of Insertion: 22 CM; Measured From: lips; Attempts: 1; Cuff Infated: Air; Cuff Vol(mL): 5 mL; Verified By: Direct visualization, Bilateral breath sounds, Chest Auscultation, CO2 Monitor 05/02/19 1321 by Puneet Kohler APRN-CRNA 05/02/19 1514 by Puneet Kohler APRN-CRNA Procedural Site (Incision) 05/02/19; 1347; Right; Hip; 05/06/19; 202205/02/19 1347 by Ana Lilia Castaneda RN 05/06/192022 by Generic, Auto Release Peripheral IV Date: 05/02/19; Time : 1348; Orientation: Right; Placed By: SYDNIE Gomez; Tolerance: General Anesthesia 05/02/19 1348 by Puneet Kohler APRN-CRNA 05/04/19 1732 by Rosa Winn RN Urethral Catheter 05/02/19; 1400; 05/02/19; 1514; Removed in OR 05/02/19 1400 by Ana Lilia Castaneda RN 05/02/19 1514 by Eula Garzon RN documented in this encounter Social History [...] as of this encounter Progress Notes * Jeffrey Angelo MD - 05/02/2019 6:13 PM CST ANESTHESIA POSTOP EVALUATION NOTE Procedure: IRRIGATION AND DEBRIDEMENT RIGHT HIP ABSCESS (Right Hip) Mason Keys is a 68 year old male Patient Vitals for the past 6 hrs: BP Temp Pulse Resp SpO2 Pain Rating Score #1 05/02/19 1520 114/43 97.2 ??F (36.2 ??C) 73 16 100 % -- 05/02/19 1525 95/57 -- 78 18 100 % -- 05/02/19 1530 102/63 -- 77 14 100 % -- 05/02/19 1535 104/63 -- 80 16 100 % 8 05/02/19 1540 103/57 -- 79 11 100 % 0 05/02/19 1545 101/56 -- 81 12 91 % -- 05/02/19 1548 -- -- 81 14 (!) 89 % -- 05/02/19 1550 104/62 -- 81 14 90 % -- 05/02/19 1555 98/64 -- 81 10 95 % -- 05/02/19 1600 104/63 -- 82 15 98 % -- 05/02/19 1603 104/63 -- 77 13 100 % 8 05/02/19 1605 97/59 -- 79 15 100 % -- 05/02/19 1610 99/57 -- 79 15 100 % -- 05/02/19 1615 100/63 -- 77 11 100 % 6 05/02/19 1620 109/66 -- 78 12 100 % -- Anesthesia Type: general Pre-op Diagnosis Codes: * Diagnosis unknown [R69] Mental Status: awake, neurologic status has returend to expected level of consciousness and alert Neuro Status: No numbess, tingling or visual disturbances Respiratory Function: natural Cardiac Function: stable Postop Pain: needs to be addressed/see medication order Postop Hydration: adequate Postop Nausea: none Assessment: no apparent anesthetic complications, patient tolerated procedure well and no evidence of recall Patient Disposition: Release from Anesthesia Care Non Reportable Improvement Section (otherwise blank): GER CHEMISTRY * Larry Menchaca APRN-SYNTHETIC SOIL BLOCKS PULPER - 05/01/2019 9:53 AM CST ANESTHESIA PREOPERATIVE EVALUATION NOTE Procedure: IRRIGATION AND DEBRIDEMENT HIP--RIGHT, INSERT ANTIBIOTIC SPACER (Hip) REMOVAL HARDWARE HIP (Hip) Vitals: No data found. ANESTHESIA PRE-EVALUATION NOTE Previous Airway Management: ETT Placed: ETT Size: 8 Blade Type: MAC Blade Size: 4 GradeGrade: 2 Mask Airway: Easy Physical Exam: Orientation X3 Airway/Mallampati Score: II Mouth Opening Distance: 2.5 fingerwidths Neck ROM: limited Teeth: dentures/partials lower and dentures/partials upper (full upper dentures, partial lower, denies loose teeth) Heart: regular rate rhythm Lungs: normal Abdomen Exam: distended Review of [...] endocarditis is suspected. ANESTHESIA PLAN ASA Score: 3 NPO Status: Patient instructed to be NPO after midnight Anesthesia Plan: general ETT Planned Induction: intravenous Planned Postop Destination: PACU Anesthetic plan was discussed with: patient ( [facility] telephone consent [phone]) Anesthetic Plan discussion was: Consented Use of blood products were discussed with: patient The patient's procedural Anesthetic Plan was discussed with the anesthesiologist. BMI, Height, Weight Tobacco History Estimated body mass index is 30.68 kg/m?? as calculated from the following: Height as of 04/29/19: 1.803 m (5' 11 ). Weight as of 04/29/19: 99.8 kg (220 lb). Social History Tobacco Use Smoking Status Former Smoker ??? Last attempt to quit: 06/06/1981 ??? Years since quittin.9 Smokeless Tobacco Never Used Alcohol History Drug History Social History Substance and Sexual Activity Alcohol Use No Social History Substance and Sexual Activity Drug Use No Outpatient Medications: Inpatient Medications: No outpatient medications have been marked as taking for the 05/02/19 encounter (Anesthesia Event) with Andres Anton MD. No current facility-administered medications for this visit. Facility-Administered Medications Ordered in Other Visits Medication Dose Last Dose ??? acetaminophen 650 mg 650 mg at 04/29/19 1640 ??? acetaminophen 650 mg 650 mg at 04/30/19 2035 ??? albuterol 2.5 mg 2.5 mg at 05/01/19 0728 ??? budesonide-formoterol 2 puff 2 puff at 05/01/19 0730 ??? bumetanide 0.5 mg ??? diphenhydrAMINE 25 mg 25 mg at 04/30/191958 ??? fentaNYL (PF) 25 mcg ??? metoprolol succinate XL 24hr 50 mg 50 mg at 04/30/19 0859 ??? rifAMPin 300 mg 300 mg at 04/30/191958 ??? tamsulosin 0.4 mg 0.4 mg at 04/30/191958 ??? tiotropium 2 puff 2 puff at 05/01/19 0730 ??? traMADol 50 mg 50 mg at 05/01/19 0623 ??? vancomycin (VANCOCIN) IV dose per pharmacy ??? vancomycin 1,250 mg Stopped at 04/30/19 1011 Allergies: Allergies Allergen Reactions ??? Penicillins Skin Reactions and Swelling ??? Levaquin [Levofloxacin] Eye Itching red around the eyes , puffy, itchy ??? Scopace [Scopolamine] Other and [facility] Dysfunction delirium Relevant Problems Cardiovascular (+) Chronic atrial fibrillation [...] ??? S/P PICC central line placement 02/13/2019 [facility] VAT R basilic ??? Seizures ??? Squamous cell carcinoma Surgical History: Past Surgical History: Procedure Laterality [...] HIP ??? Tracheostomy N/A 09/13/2017 N/A; TRACHEOSTOMY Lab Results: Recent Labs Component Name 05/01/19 0244 04/30/19 0242 02/04/19 0737 WBC 7.2 7.9 - 10.6 HGB 10.6* 10.5* - 8.7* HCT 35.6 35.3 - 30.0* PLTCOUNT 148* 159 - 212 INR - 1.1 - 1.0 PTT - - - 26.4 - = values in this interval not displayed. Recent Labs Component Name 05/01/19 0244 SODIUM 141 POTASSIUM 4.7 CHLORIDE 106 CO2 26 BUN 25 CREATININE 1.04 Recent Labs Component Name 05/01/19 0244 04/30/19 0242 GLUCOSE 89 101 CALCIUM 9.8 9.5 ALT - 27 AST - 30 GER CHEMISTRY documented in this encounter Procedure Notes * Puneet Kohler APRN-CRNA - 05/02/2019 2:15 PM CSTAssociated Order(s): Peripheral IV Placement Peripheral IV Line Placement: Patient Location: OR Procedure: IV start (48800). Procedure Section: Skin Prep: Chloraprep. Orientation: right Location: arm Brand Name: CESPEDES. Catheter Gauge: 18 Number of Attempts: 1. Procedure Tolerance: performed while patient under general anesthesia. Procedure Start Time: 05/02/2019 1:48 PM. Procedure End Time: 05/02/2019 1:51 PM. Procedure Total Time: 3 minutes. Staff Section Anesthesia Provider: Puneet Kohler APRN-CRNA, Performed the procedure GER CHEMISTRY * Puneet Kohler APRN-CRNA - 05/02/2019 2:06 PM CSTAssociated Order(s): ETT Placement Endotracheal Tube Placement: Patient Location: OR. Intubation Event Date/Time: 05/02/2019 1:21 PM Procedure: intubation (79536). Procedure Section: Sedation: under general anesthesia. Indications for Airway Management: anesthesia Induction: standard IV Patient Position: sniffing Mask Ventilation: easy. Blade Type: Juan Blade Size: 4 Laryngoscopy View: grade 1 (full cords) Intubation Adjuncts: cricoid pressure and stylet Tube: endotracheal tube Placement: oral Tube type: cuff - inflated Tube Size (MM): 8 Depth of Insertion (CM): 22 Measured From: lips Cuff volume (mL): 5 Cuff Inflated With: air Number of Attempts: 1. Placement Verified By: direct visualization, bilateral breath sounds, chest auscultation and CO2 monitor Tube secured with: adhesive tape. Difficult Airway? No. Procedure Start Time: 05/02/2019 1:21 PM. Procedure End Time: 05/02/2019 1:21 PM. Procedure Total Time: 0 minutes. Staff Section Anesthesia Provider: Puneet Kohler APRN-CRNA, Performed the procedure GER CHEMISTRY documented in this encounter Miscellaneous Notes * Anesthesia Transfer of Care - Puneet Kohler APRN-CRNA - 05/02/2019 3:20 PM CST ANESTHESIA TRANSFER OF CARE NOTE Today's Date: 05/02/2019 Date of : 1950 Patient: Mason Keys Procedure(s): IRRIGATION AND DEBRIDEMENT RIGHT HIP ABSCESS Surgeon(s): Primary: Larry Alexander MD Preop Diagnosis: Pre-op Diagnois: * Diagnosis unknown [R69] Pre-op Meds (From admission, onward) Start Stop Status Route Frequency Ordered 05/02/19 0114 0.9% NaCl flush bag -- Verified IV CONTINUOUS PRN 05/02/19 0115 05/02/19 0105 0.9% NaCl infusion ADS Med Note to Pharmacy: Fe Mehul: cabinet override 05/02 1314 Dispensed 05/02/19 0105 05/02/19 1337 0.9% NaCl infusion rate and volume -- Verified IV ONCE PRN 05/02/19 1338 05/02/19 1403 0.9% NaCl infusion rate and volume -- Verified IV ONCE PRN 05/02/19 1406 05/02/19 1337 0.9% NaCl injection 1-10 mL -- Dispensed IK PRN 05/02/19 1338 05/02/19 1415 0.9% NaCl injection 3 mL -- Dispensed IK EVERY 8 HOURS 05/02/19 1338 04/29/19 0545 acetaminophen (TYLENOL) tablet 650 mg -- Dispensed PO EVERY 6 HOURS PRN 04/29/19 0545 04/29/19 0755 acetaminophen (TYLENOL) tablet 650 mg Note to Pharmacy: OP sig: Take 650 mg by mouth every 4 hours as needed -- Dispensed PO EVERY 4 HOURS PRN 04/29/19 0757 04/29/19 0900 albuterol (PROVENTIL;VENTOLIN) (5 MG/ML) 0.5% nebulizer solution 2.5 mg Note to Pharmacy: OP si.5 mg. Patient taking differently: Inhale 2.5 mg by mouth 4 times daily -- Dispensed IN 4 TIMES DAILY 04/29/19 0757 04/29/19 0900 budesonide-formoterol (SYMBICORT) 160-4.5 MCG/ACT inhaler 2 puff -- Dispensed IN 2 TIMES DAILY 04/29/19 0757 05/01/19 1100 bumetanide (BUMEX) tablet 0.5 mg -- Dispensed PO 2 TIMES DAILY 05/01/19 1008 04/29/19 0756 diphenhydrAMINE (BENADRYL) capsule 25 mg Note to Pharmacy: OP sig: Take 25 mg by mouth every 6 hours as needed for Itching -- Dispensed PO EVERY 6 HOURS PRN 04/29/19 0757 05/02/19 1528 diphenhydrAMINE (BENADRYL) injection 25 mg -- Sent IV ONCE PRN 05/02/19 1528 05/01/19 1305 diphenhydrAMINE-zinc acetate (BENADRYL EXTRA STRENGTH) 2-0.1 % cream -- Dispensed TP PRN 05/01/19 1305 04/29/19 0546 fentaNYL (PF) (SUBLIMAZE) injection 25 mcg -- Verified IV EVERY 4 HOURS PRN 04/29/19 0546 05/02/19 1528 fentaNYL (PF) (SUBLIMAZE) injection 50 mcg -- Sent IV EVERY 3 MIN PRN 05/02/19 1528 05/02/19 1130 gentamicin (GARAMYCIN) 400 mg in 0.9% NaCl 100 mL IVPB 05/02 1317 Completed IV PRE-OP ONCE 05/02/19 0627 05/02/19 1528 HYDROmorphone (DILAUDID) injection 0.5 mg -- Sent IV EVERY 5 MIN PRN 05/02/19 1528 05/02/19 0700 lactated ringers infusion -- Dispensed IV CONTINUOUS 05/02/19 0627 05/02/19 1530 lactated ringers infusion -- Sent IV CONTINUOUS 05/02/19 1528 04/29/19 1730 metoprolol succinate XL 24hr (TOPROL XL) tablet 50 mg -- Dispensed PO DAILY 04/29/19 1653 05/02/19 1528 morphine injection 2 mg -- Sent IV EVERY 15 MIN PRN 05/02/19 1528 05/02/19 1528 naloxone (NARCAN) injection 0.04 mg -- Sent IV POST-OP MULTIPLE 05/02/19 1528 05/02/19 1528 ondansetron (ZOFRAN) injection 4 mg -- Sent IV ONCE PRN 05/02/19 1528 05/02/19 1528 ondansetron (ZOFRAN) injection 4 mg -- Sent IV ONCE PRN 05/02/19 1528 04/29/19 2100 [MAR Hold] rifAMPin (RIFADIN) capsule 300 mg (MAR Hold since Tue05/02/2019 at 0921 by Babita Duarte RN.) -- Dispensed PO 3 TIMES DAILY 04/29/19201505/02/19 1145 sodium hypochlorite 0.125% (DAKINS) 1/4 strength solution 05/02 2344 Dispensed TP ONCE 05/02/19 1128 04/29/19 2100 tamsulosin (FLOMAX) capsule 0.4 mg Note to Pharmacy: OP sig: Take 0.4 mg by mouth at bedtime -- Dispensed PO AT BEDTIME 04/29/19 0757 04/29/19 0900 tiotropium (SPIRIVA RESPIMAT) 2.5 MCG/ACT inhaler 2 puff -- Dispensed IN DAILY 04/29/19 0803 04/29/19 0546 traMADol (ULTRAM) tablet 50 mg -- Dispensed PO EVERY 6 HOURS PRN 04/29/19 0546 05/02/19 0630 tranexamic acid (CYKLOKAPRON) injection 1,000 mg 05/02 1317 Completed IV PRE-PROCEDURE ONCE 05/02/1962605/02/19 0630 tranexamic acid (CYKLOKAPRON) injection 1,000 mg 05/02 1829 Verified IV PRE-PROCEDURE ONCE 05/02/19 0627 04/29/19 0544 vancomycin (VANCOCIN) IV dose per pharmacy -- Dispensed XX DIRECTED 04/29/19 0545 05/02/19 0100 vancomycin HCl (VANCOCIN) 1,500 mg in 0.9% NaCl 500 mL IVPB -- Dispensed IV EVERY 18 HOURS 05/01/19 1346 Post-op Diagnosis: * Diagnosis unknown [R69] . Allergies Allergen Reactions ??? Penicillins Skin Reactions and Swelling ??? Levaquin [Levofloxacin] Eye Itching red around the eyes , puffy, itchy ??? Scopace [Scopolamine] Other and [facility]OS[facility] Dysfunction delirium Vitals: Patient Vitals for the past 3 hrs: BP Temp Pulse Resp 05/02/19 1520 114/43 97.2 ??F (36.2 ??C) 73 16 Lines, Drains, and Airways Type Details Placement Removal Enteral - 09/15/17; 914; Dr. Guerra; PEG; Abdomen, Left; Well 09/15/17914 by Denise Damon, DONTAE Peripheral IV Date: 04/29/19; Time: 2230; Orientation: Left, Posterior, Distal; Location: Forearm; Placed By: Duke Yousif RN; Gauge: 22 Gauge 04/29/192229 by Moise Yousif, RN ETT Date: 05/02/19; Time: 1321; Placed By: Puneet Kohler APRN-SYNTHETIC SOIL BLOCKS PULPER; Vent: easy mask; Induction: Standard IV; Blade Type: Juan; Blade Size: 4; Laryngoscopy View: Grade 1 (full cords); Intubation Adjuncts: Stylet, Cricoid Pressure; Tube: Endotracheal Tube; Placement: Oral; Tube Type: Cuffed-inflated; Tube Size(mm): 8 MM; Depth of Insertion: 22 CM; Measured From: lips; Attempts: 1; Cuff Infated: Air; Cuff Vol(mL): 5 mL; Verified By: Direct visualization, Bilateral breath sounds, Chest Auscultation, CO2 Monitor 05/02/19 1321 by Puneet Kohler APRN-CRNA 05/02/19 1514 by Puneet Kohler APRN-CRNA Peripheral IV Date: 05/02/19; Time: 1348; Orientation: Right; Location: Arm; Placed By: SYDNIE Gomez; Gauge: 18 Gauge; Tolerance: General Anesthesia 05/02/19 1348 by Puneet Kohler APRN-CRNA Intraprocedure I/O Totals phenylephrine 10mg in 250ml NS (ANES makes in OR) Volume 50 mL Patient Transfer Location: PACU Transport Airway: spontaneous respirations and supplemental O2 Complications: None Handoff Given? Yes Checklist or [...] of report from the receiving PACUteam. SYDNIE Gomez GER CHEMISTRY documented in this encounter Plan of Treatment Upcoming Encounters Date Type Department Care Team (Late st Contact Info) Description 07/09/2024 12:30 PM MANAGER CHEMISTRY Office Visit [facility] - GI [address] [place] [address], [facility] [place] [address] Twin Miller MD [address] [place] [address] [place] [address] 09/19/2024 2:00 PM CDT Office Visit [facility] - Orthopedic Surgery [address] [facility] [place] [address] Larry Alexander MD [address] [place] [address] documented as of this encounter Goals Goal [...] Procedure Name Priority Date/Time Associated Diagnosis Comments PERIPHERAL IV NOTE Routine 05/02/2019 2: 15 PM MANAGER CHEMISTRY ENDOTRACHEAL TUBE NOTE Routine 05/02/2019 2:06 PM MANAGER CHEMISTRY documented in this encounter Results * IV PLACEMENT PERFORMABLE (05/02/2019 2:15 PM MANAGER CHEMISTRY) Narrative Puneet Kohler APRN-CRNA - 05/02/2019 2:15 PM MANAGER CHEMISTRY Puneet Kohler APRN-CRNA ? 05/02/2019 ??2:16 PM Peripheral IV Line Placement: Patient Location: ??OR Procedure: IV start (15993). Procedure Section: ?? Skin Prep: Chloraprep. Orientation: [...] Anton MD GENERAL ANESTHESIA O RDERABLES * ETT LINE PERFORMABLE (05/02/2019 2:06 PM MANAGER CHEMISTRY) Narrative Puneet Kohler APRN-CRNA - 05/02/2019 2:06 PM MANAGER CHEMISTRY Puneet Kohler APRN-CRNA ? 05/02/2019 ??2:07 PM Endotracheal Tube Placement: ? Patient Location: OR. Intubation Event Date/Time: ??05/02/2019 1:21 PM Procedure: intubation ([id number]). Procedure Section: ?? Sedation: under general anesthesia. [...] Andres Anton MD GENERAL ANESTHESIA O RDERABLES documented in this encounter Visit Diagnoses Not on filedocumented in this encounter Administered Medications Inactive Administered Medications - up to 3 most recent administrations Medication Order MAR Action Action Date Dose Rate Site ceFAZolin (ANCEF) 2,000 mg in 50 ml IVPB PRN, Starting on Tue05/02/19 at 1317, Until Tue05/02/19 at 1518, Anesthesia Intra-op $ Given 05/02/2019 1:17 PM MANAGER CHEMISTRY 2 g dexamethasone (DECADRON) injection Intravenous, PRN, Starting on Tue05/02/19 at 1325, Until Tue05/02/19 at 1518, Anesthesia Intra-op $ Given 05/02/2019 1:25 PM MANAGER CHEMISTRY 4 mg fentaNYL (PF) (SUBLIMAZE) injection PRN, Starting on Tue05/02/19 at 1317, Until Tue05/02/19 at 1518, Anesthesia Intra-op $ Given 05/02/2019 1:17 PM MANAGER CHEMISTRY 100 mcg gentamicin (GARAMYCIN) 400 mg in 0.9% NaCl 100 mL IVPB 400 mg, at 200 mL/hr, Intravenous, PRE-OP ONCE, 1 dose, On Tue05/02/19 at 1130, Indication for anti-infective therapy: Surgical prophylaxis $ Given 05/02/2019 1:17 PM MANAGER CHEMISTRY 400 mg lactated ringers infusion CONTINUOUS PRN, Starting on Tue05/02/19 at 1300, Until Tue05/02/19 at 1518, Anesthesia Intra-op $ New Bag/Syringe 05/02/2019 1:00 PM MANAGER CHEMISTRY lidocaine (XYLOCAINE) 2 % injection PRN, Starting on Tue05/02/19 at 1320, Until Tue05/02/19 at 1518, Anesthesia Intra-op $ Given 05/02/2019 1:20 PM MANAGER CHEMISTRY 20 mg Ondansetron HCl (ZOFRAN) injection PRN, Starting on Tue05/02/19 at 1425, Until Tue05/02/19 at 1518, Anesthesia Intra-op $ Given 05/02/2019 2:25 PM MANAGER CHEMISTRY 4 mg phenylephrine (ZULY-SYNEPHRINE) infusion CONTINUOUS PRN, Starting on Tue05/02/19 at 1345, Until Tue05/02/19 at 1518, Anesthesia Intra-op $ New Bag/Syringe 05/02/2019 1:45 PM MANAGER CHEMISTRY Phenylephrine HCl (ZULY-SYNEPHRINE) injection Intravenous, PRN, Starting on Tue05/02/19 at 1344, Until Tue05/02/19 at 1518, Anesthesia Intra-op $ Given 05/02/2019 1:44 PM MANAGER CHEMISTRY 100 mcg propofol (DIPRIVAN) injection PRN, Starting on Tue05/02/19 at 1320, Until Tue05/02/19 at 1518, Anesthesia Intra-op $ Given 05/02/2019 3:11 PM MANAGER CHEMISTRY 20 mg $ Given 05/02/2019 1:20 PM MANAGER CHEMISTRY 150 mg rocuronium (ZEMURON) injection Intravenous, PRN, Starting on Tue05/02/19 at 1325, Until Tue05/02/19 at 1518, Anesthesia Intra-op $ Given 05/02/2019 1:25 PM MANAGER CHEMISTRY 30 mg succinylcholine (ANECTINE) injection PRN, Starting on Tue05/02/19 at 1320, Until Tue05/02/19 at 1518, Anesthesia Intra-op $ Given 05/02/2019 1:20 PM MANAGER CHEMISTRY 100 mg sugammadex (BRIDION) injection PRN, Starting on Tue05/02/19 at 1427, Until Tue05/02/19 at 1518, Anesthesia Intra-op $ Given 05/02/2019 2:27 PM MANAGER CHEMISTRY 200 mg tranexamic acid (CYKLOKAPRON) injection 1,000 mg 1,000 mg, Intravenous, PRE-PROCEDURE ONCE, 1 dose, On Tue05/02/19 at 0630, Do not inject more rapidly than 1 mL/min to avoid hypotension. 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
--- OUTSIDE RECORDS SUMMARY | 2024-05-24 23:38 | XMS_ITS | Encounter Summary ---
Author Organization [facility] Address [address] [facility] [place] [address] Care Team Providers Care Big Data Developer Name Role Phone Briana Medeiros MD Primary Care Provider [phone] Reason for Visit * Reason Comments Pain Hip Encounter Details Date Type Department Care Team (Late st Contact Info) Description 02/27/2019 10:15 AM CDT Office Visit [facility] - Orthopedics [address] [place] [address] [place] [phone] Larry Alexander MD [address] [facility] [address] [place], [place] [phone] 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 Alexander - s/p:??Right hip I&D with Femoral head and poly exchange with delayed primary closure 02/08/[address] Alexander Time since surgery: 3 weeks HPI Date of this clinic visit: 02/27/2019 Patient is a 68 year old male who presents for follow-up clinic appointment, regarding follow up for the above mentioned injury complex. Has been staying at SNF and doing well. Does some walking witha walker. Has a PICC line and is scheduled to be receiving IV ABx through 04/01. He will follow up with Dr. Nevarez regarding career based intervention coordinator plan for antibiotics. Pain controlled on current regimen, on Coumadin for anticoagulation (was previously on Eliquis). No fevers, chills, new numbness/ paresthesias, gross motor weakness Objective There were no vitals taken for this visit. PMHx Past Medical History: Diagnosis Date ??? [...] Last attempt to quit: 06/06/1981 Years since quittin.7 ??? Smokeless tobacco: Never Used Substance Use Topics ??? Alcohol use: No Family Hx family history includes Cirrhosis in his father; Coronary Artery Disease in his mother. Allergies Allergies Allergen Reactions ??? Penicillins Skin Reactions and Swelling ??? Scopace [Scopolamine] Other and FIELD CONTACT PERSON Dysfunction delirium Medications Current Outpatient Medications Medication ??? acetaminophen (TYLENOL) 325 MG tablet ??? albuterol (PROVENTIL;VENTOLIN) (5 MG/ML) 0.5% nebulizer solution ??? Ascorbic Acid 500 MG ??? aspirin (ASPIRIN) 325 MG tablet ??? baclofen (LIORESAL) 10 MG tablet ??? benzonatate (TESSALON) 200 MG capsule ??? bisacodyl (DULCOLAX) 10 MG suppository ??? clotrimazole (LOTRIMIN AF) 1 % cream ??? diphenhydrAMINE (BENADRYL) 25 MG capsule ??? lactulose (CHRONULAC) 10 GM/15ML solution ??? metoprolol tartrate (LOPRESSOR) 25 MG tablet ??? omeprazole (PRILOSEC) 40 MG capsule ??? oxyCODONE-acetaminophen (PERCOCET) 10-325 MG tablet ??? polyethylene glycol 3350 (MIRALAX) packet ??? rifAMPin (RIFADIN) 300 MG capsule ??? roflumilast (DALIRESP) 500 MCG tablet ??? senna-docusate (SENOKOT-S) 8.6-50 MG tablet ??? SYMBICORT 160-4.5 MCG/ACT inhaler ??? tamsulosin (FLOMAX) 0.4 MG capsule ??? vancomycin HCl 1.25 g 1,250 mg in 0.9% NaCl 0.9 % 250 mL ??? vitamin D, ergocalciferol, (DRISDOL) 84320 UNITS capsule ??? warfarin (COUMADIN) 4 MG tablet ??? warfarin (COUMADIN) 5 MG tablet No current facility-administered medications for this visit. Review of Systems Review of Systems Constitutional: Negative for chills, fever, malaise/fatigue and weight loss. Musculoskeletal: Negative for falls and joint pain. Skin: Negative for rash. Neurological: Negative for focal weakness. Physical Exam General: Alert, cooperative, in no acute distress. CV: RRR, distal pulses equal and symmetric Resp: no increased labor of breathing Musculoskeletal: Right lower extremity: -Inspection: surgical incision clean and dry without erythema or drainage, diogenes in place -Tenderness: nontender to palpation of hip -ROM: Hip exam demonstrates no pain with PROM -Motor: Able to PF/DF ankle and great toe. Extensor mechansim is intact. -Sensation: SILT to dorsal and plantar foot -Vascular: 2+ DP pulse with toes warm and well perfused Imaging - Radiographs of an AP pelvis and 2 views of the Right hip was reviewed which reveal ARNALDO componentsintact and in place without signs of loosening or failure - Please see separate radiographic report for formal read by Radiology Assessment/Plan: Patient is a 68 year old, male with infected right total hip arthroplasty from 2005 -s/p right hip I&D and wound vac application on??02/04/2019??with Dr. Alexander - s/p:??Right hip I&D with Femoral head and poly exchange with delayed primary closure 02/08/[address] [place] 1. Patient was counseled to the nature of their diagnosis and demonstrated understanding. Questionssolicited and answered. 2. WBAT RLE 3. [place] DC'd in clinic today 4. Patient will follow up with Dr. Nevarez for antibiotic management 5. [facility] 6. Return to clinic in 3 months with XR of pelvis and Right hip Alberto Shell MD 02/27/2019 10:33 AM Patient seen and examined withresident. I confirm history, exam, assessment and plan. In addition Inote: Interval history: Briefly, this is a 68 year old male S/P infected right hip arthroplasty irrigation and debridement with head and polyethylene exchange. right hip stable to ligamentous examination. ROM is good. Examination/plan noted above. I personally examined the patient and edited and agree with the above findings in the note Assessment/Plan: Continue PT/strengthening, F/U as discussed, We discussed antibiotic prophylaxis before any invasive procedures to protect the prosthesis for life. We discussed hip precautions at length and the lifetime restriction of limited internal rotation with deep flexion. We discussed follow-up with infectious disease for possible antibiotic suppression after his IV antibiotics have stopped Please see resident's note for further details. Larry Alexander MD documented in this encounter Plan of Treatment Upcoming Encounters Date Type Department Care Team (Late st Contact Info) Description 07/09/2024 12:30 PM CEMENT MASON HELPER Office Visit [facility] - GI [address] [place] [address], [place] [address] Twin Miller MD [address] [place] [address] DIV [place] [address] 09/19/2024 2:00 PM CDT Office Visit [facility] - Orthopedic Surgery [facility] [place] [phone] Larry Alexander MD [facility] [address] [place] [address] documented as of this encounter Goals Goal [...] documented as of this encounter Care Teams Big Data Developer Relationship Specialty Start Date End Date Briana Medeiros MD [address] [place], [place] [phone] PCP - General 02/15/18 02/22/22 documented as of this encounter
--- OUTSIDE RECORDS SUMMARY | 2024-05-24 23:38 | XMS_ITS | Encounter Summary ---
Author Organization [facility] Address [address] [place] [address] Care Team Providers Care Chairman And Chief Executive Officer Name Role Phone Briana Medeiros MD Primary Care Provider Encounter Details Date Type Department Care Team (Late st Contact Info) Description 02/27/2019 Orders Only [facility] - Orthopedics [address] [facility] [place] [phone] Larry Alexander MD [address] [facility] 280 [place] [address] Arthralgia of hip, unspecified laterality Social History [...] No 02/02/2019 documented as of this encounter Plan of Treatment Upcoming Encounters Date Type Department Care Team (Late st Contact Info) Description 07/09/2024 12:30 PM AUTO INSPECTION SPECIALIST Office Visit [facility] - GI [address] [facility], [place] [address] Twin Miller MD [facility] 2L DIV [place] [address] 09/19/2024 2:00 PM CDT Office Visit [facility] - Orthopedic Surgery [address] [place] [phone] Larry Alexander MD [address] [facility] 280 [place] [address] documented as of this encounter Goals Goal [...] as of this encounter Results * XR HIP RIGHT 2VW OR MORE (02/27/2019 10:09 AM CDT) Anatomical Region Laterality Modality Pelvis, Lower Extremity Radiogra [facility] 02/27/2019 10:1 7 AM CDT Impressions [...] and right hip radiographs dated 02/02/2019 from [facility]. CT Right hip dated 02/02/2019 from [place], [place]. Findings: Right hip: Total hip arthroplasty [...] [facility] Right hip dated 02/02/2019 from [place]. Findings: Right hip: Total hip arthroplasty [...] Alexander MD DIAGNOSTIC IMAGING ORDERABLES * XR PELVIS 1 OR 2VW (02/27/2019 10:09 AM CDT) Anatomical Region Laterality Modality Pelvis Radiographic Shama ging 02/27/2019 10:1 7 AM CDT Impressions 02/27/2019 [...] and right hip radiographs dated 02/02/2019 from [facility]. CT Right hip dated 02/02/2019 from [place]. Findings: Right hip: Total hip arthroplasty [...] [facility]vis [facility] Right hip dated 02/02/2019 from [place]. Findings: Right hip: Total hip arthroplasty [...] documented as of this encounter Care Teams Chairman And Chief Executive Officer Relationship Specialty Start Date End Date Briana Medeiros MD [address] [place] [address] PCP - General 02/15/18 02/22/22 documented as of this encounter
--- OUTSIDE RECORDS SUMMARY | 2024-05-24 23:38 | XMS_ITS | Encounter Summary ---
Author Organization [facility] Address [address] [place] [address] Care Team Providers Care Cotton Washer Name Role Phone Briana Medeiros MD Primary Care Provider Reason for Visit * Reason Comments Results Encounter Details Date Type Department Care Team (Late st Contact Info) Description 04/26/2019 Telephone [facility] - [address] [phone] Monty Gentile, RN Results Social History Tobacco Use Types Packs/Day Years [...] No 02/02/2019 documented as of this encounter Miscellaneous Notes * Telephone Encounter - Monty Gentile, RN - 04/26/2019 2:23 PM CST Detailed VM left for pt on ID'd system re: message from Dr Licona. Office # left if any questions. ENTER RAILCAR * Telephone Encounter - Monty Gentile, RN - 04/26/2019 2:23 PM CST ----- Message from Jackelyn Licona MD sent at 04/25/2019 8:54 AM CARPENTER RAILCAR ----- Rich, Please let Mason know that his AFP is wnl. Will await his imaging for hCC screening. Thanks. Ro ----- Message ----- From: Interface, Generic Out Multi Sent: 04/25/2019 4:07 AM CARPENTER RAILCAR To: Jackelyn Licona MD ENTER RAILCAR documented in this encounter Plan of Treatment Upcoming Encounters Date Type Department Care Team (Late st Contact Info) Description 07/09/2024 12:30 PM CARPENTER RAILCAR Office Visit [facility] - GI [address] [place] [address], [place] [address] Twin Miller MD [address] [place] [address] [place] [address] 09/19/2024 2:00 PM CDT Office Visit [facility] - Orthopedic Surgery [facility] [place] [phone] Larry Alexander MD [address] [facility] 280 [place] [address] documented as of this encounter Goals Goal [...] as of this encounter Care Teams Cotton Washer Relationship Specialty Start Date End Date Briana Medeiros MD [address] [place] [address] PCP - General 02/15/18 02/22/22 documented as of this encounter
--- OUTSIDE RECORDS SUMMARY | 2024-05-24 23:38 | XMS_ITS | Encounter Summary ---
Author Organization [facility] Address [address] [facility] [place] [address] Care Team Providers Care Supervisor Post Wave Name Role Phone Briana Medeiros MD Primary Care Provider [phone] Encounter Details Date Type Department Care Team (Latest Contact Info) Description 02/27/2019 9:57 AM CDT Hospital Encounter [facility] DIAGNOSTIC RAD [facility] [address] [facility] [place] [address] Larry Alexander MD [address] [facility] 280 [place] [address] Discharge Disposition: Home or Self Care Social [...] Each 02/15/2019 04/01/2019 vitamin D, ergocalciferol, (DRISDOL) 55833 UNITS capsuleIndications:Ot her cirrhosis of liver (HCC) [...] st Contact Info) Description 07/09/2024 12:30 PM RELATIONSHIP MANAGEMENT LEAD Office Visit [facility] - GI [address] [place] [address], [place] [address] Twin Miller MD [address] [place] [address] [place] [address] 09/19/2024 2:00 PM CDT Office Visit [facility] - Orthopedic Surgery [address] [place] [address] Larry Alexander MD [address] [place] [address] documented as of this encounter Goals Goal [...] Comments XR PELVIS 1 OR 2VW Routine 02/27/2019 10 :09 AM CDT Arthralgia of hip, unspecified laterality documented in this encounter Results * XR PELVIS 1 OR 2VW (02/27/2019 [...] and right hip radiographs dated 02/02/[address] [facility] Right hip dated 02/02/2019 from [place]. Findings: Right hip: Total hip arthroplasty [...] Pelvis and right [facility] [facility] Right hip dated 02/02/2019 [place]. Findings: Right hip: Total hip arthroplasty [...] documented as of this encounter Care Teams Supervisor Post Wave Relationship Specialty Start Date End Date Briana Medeiros MD [address] [place] [address] PCP - General 02/15/18 02/22/22 documented as of this encounter
--- OUTSIDE RECORDS SUMMARY | 2024-05-24 23:38 | XMS_ITS | Encounter Summary ---
Author Organization [facility] Address [address] [facility] [place] [address] Care Team Providers Care Truck Shop Supervisor Name Role Phone Briana Medeiros MD Primary Care Provider [phone] Encounter Details Date Type Department Care Team (Latest Contact Info) Description 04/24/2019 11:05 AM POWER BARKER - 04/24/2019 11:59 PM [facility] Hospital Encounter [facility] [address] [place] [address] Raysa Nevarez MD [address] [address] Discharge Disposition: Home or Self Care Social [...] 2 times daily 02/15/2019 04/29/2019 nystatin (MYCOSTATIN) 148597 UNIT/GM powder Apply to affected area 2 [...] as needed. 10/12/2023 vitamin D, ergocalciferol, (DRISDOL) 27341 UNITS capsuleIndications:Oth er cirrhosis of liver (HCC) Take 50,000 Units by mouth every 7 days 0 02/02/2018 03/21/2023 documented as of this encounter Plan of Treatment Upcoming Encounters Date Type Department Care Team (Late st Contact Info) Description 07/09/2024 12:30 PM POWER BARKER Office Visit [facility] - GI [address] [place] [address], [place] [phone] Twin Miller MD [address] [place] [address] [place] [address] 09/19/2024 2:00 PM CDT Office Visit [facility] - [facility]opedic Surgery [facility]1 [place] [phone] Larry Alexander MD [address] [address] documented as of this encounter Goals Goal [...] Comments ALPHA FETOPROTEIN BLOOD TUMOR MARKER Routine 04/24/2019 11:41 AM POWER BARKER 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) Metabolic syndrome ERYTHROCYTE SEDIMENTATION RATE Routine 04/24/2019 11:41 AM POWER BARKER 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 ??Results cannot be interpreted as absolute evidence of the presence or absence of malignant disease. This test is not interpretable in females. Blood BLOOD SPECIMEN / Unknown Lab Venipuncture / Unknown 04/24/2019 11:41 AM POWER BARKER 04/24/2019 11:41 AM POWER BARKER Narrative [facility] ([facility]) - 04/25/2019 5:07 AM POWER BARKER Performed at: ??01 - [facility] [address], [place], [place] [id number] Keyboarding Clerk: Erik Mcqueen PhD, Phone: ??[phone] Jackelyn Licona MD LAB - CHEMISTRY ROYCE KLINE [facility] ([facility]) [address] [place] [address] * (ABNORMAL) ERYTHROCYTE SEDIMENTATION RATE (04/24/2019 11:41 AM POWER BARKER) Erythrocyte Sedimentation Rate Automated 70(H) 0 - 20 MM/HR 04/24/2019 12:25 PM POWER BARKER [facility] Blood BLOOD SPECIMEN / Unknown Lab Venipuncture / Unknown 04/24/2019 11:41 AM POWER BARKER 04/24/2019 11:41 AM POWER BARKER Raysa Nevarez MD LAB - HEMATOLOGY RA[place]Y [place] Performing Organization Address City/[facility]/ZIP Co de Phone Number [facility] [address] [place] [id number] * (ABNORMAL) C-REACTIVE PROTEIN (04/24/2019 11:40 AM POWER BARKER) Pathologist [facility] C-Reactive Protein 1.41(H) <=0.50 mg/dL 04/24/2019 12:51 PM POWER BARKER [facility] Blood BLOOD SPECIMEN / Unknown Lab Venipuncture / Unknown 04/24/2019 11:40 AM POWER BARKER 04/24/2019 11:40 AM POWER BARKER Raysa Nevarez MD LAB - CHEMISTRY ROYCE KLINE Performing Organization Address City/[facility]/ZIP Co de Phone Number [facility] [address] [place] [id number] documented in this encounter Visit Diagnoses Diagnosis 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
--- OUTSIDE RECORDS SUMMARY | 2024-05-24 23:38 | XMS_ITS | Encounter Summary ---
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) Metabolic syndrome Procedures US ABDOMEN LIMITED Jackelyn Licona MD [address] [place] [address] [address] Referral ID Status Reason Start Date Expiration Date Visits Re quested Visits Authorized [id number] Closed 05/07/2019 11/03/2019 1 1 Reason for Visit * Reason Comments Michaud Cirrhosis Encounter Details Date Type Department Care Team (Late st Contact Info) Description 02/27/2019 2:30 PM CDT Office Visit [facility] GI [address] [place] [address] Jackelyn Licona MD [address] [place] [address] Liver cirrhosis secondary to MICHAUD (HCC) (Primary Dx); Metabolic syndrome Social History Tobacco Use Types [...] Sign Reading Time Taken Comments Blood Pressure 130/73 02/27/2019 2:25 PM CDT Pulse 58 02/27/2019 2:25 PM CDT Temperature 37 ??C (98.6 ??F) 02/27/2019 2:25 PM CDT Respiratory Rate 18 02/27/2019 2:25 PM CDT Oxygen Saturation 100% 02/27/2019 2:25 PM CDT Inhaled Oxygen Concentration - - Weight 99.9 kg (220 lb 4.8 oz) 02/27/2019 2:25 P M CDT Height 180.3 cm (5' 11 ) 02/27/2019 2:25 PM CDT Body Mass Index 30.73 02/27/2019 2:25 PM CDT documented in this encounter Functional [...] No 02/02/2019 documented as of this encounter Patient Instructions * Patient Instructions* Jackelyn Licona MD - 02/27/2019 3:34 PM CDT Thank you for entrusting your healthcare to the physicians and other specialists at the [facility] today. Following your visit, you may receive a Press Ganey survey via email or U.S. Mail. We encourage youto respond to this confidential survey about your care. Your feedback helps us to provide quality service at every visit. Thank you for your help in making our practice meet higher expectations. Contact information: To reach the clinic please call (8 am to noon, 1 to 4:30 pm weekdays). ??? Press 1 to make schedule or cancel an appointment ??? Press 2 for pharmacy refills ?? Press 3 to speak with a nurse regarding a change in your condition. Many times your nurse may be busy seeing patients in clinic. In order to meet your needs timely we have implemented a nurse triage line to take your calls. We are closed from 12-1 for lunch After hours please call (hospital main number), ask the mining plant operator to call the gastroenterology fellow environmental health safety engineer. Emergency; call [phone] or go to your closest emergency room. For more information, below are some useful websites: More information about us and our services can be found on our websites at [email or web address] and [email or web address] [email or web address]/en-[email or web address] Hospital information can be found at: [email or web address] Information about other [facility] providers can be found at: [email or web address] Information about the [employer] [facility] [place], a ypo-btn-bwywan foundation supporting liver disease research by your doctors and researchers at [facility], can be found at: [email or web address] You can sign up to receive emails with updates on current GI topics called the [facility] [employer]IR[employer]med. These come out twice a week from one of our professional organizations, the [employer]. Go to this website to sign up: [email or web address] The following information and instructions are from your visit today: ?? Plan for ultrasound in May 2019. Labs at [facility] before that Ultrasound. ?? Followup in 6 months. documented in this encounter Progress Notes * Jackelyn Licona MD - 02/27/2019 2:30 PM CDT [facility] Jackelyn Licona MD Referring Provider: Vandana Alexander MD PCP: Briana Medeiros MD Interval history and subjective concerns: I had the pleasure of meeting Mason Keys at the [facility] on 02/27/2019. This is a 68 year old male with history of MICHAUD and cirrhosis. -History of MRSA bacteremia 1 year ago c/b empyema and epidural abscess. History of DM2, CAD, DVT, and Afib. -Patient was diagnosed with cirrhosis in 2018 based on imaging. -In Feb 2019, patient was admitted with infection or right hip arthroplasty, s/p I&D 02/04 and 02/08 (hardware retained). DCed on prolonged course of vanc/rifampin. Patient's liver disease is complicated by: -Ascites: No ascites. Was recently started on lasix for lower extremity edema. No prior LVP. -Varices: No bleeding episodes. Last EGD 2017 without varices. -Encephalopathy: Had episode of confusion while hospital, likely related to medication. Interval events: He was hospitalized at [facility] for infection of prior hip arthroplasty. ON home abx. Had cataract surgery in Jun 2018. Vision has improved. Alcohol: Does not drink alcohol. Tobacco: He did smoke from [id number]. Review of Systems: Constitutional: negative for fevers, chill Eyes: negative for visual disturbance ENT: negative for hearing changes Respiratory: negative for shortness of breath Cardiovascular: positive for lower extremity edema, negative for chest pain Gastrointestinal: negative for nausea or vomiting Genitourinary:negative for dysuria Hematologic/lymphatic: positive for easy bruising, bleeding Musculoskeletal: negative for myalgias, arthralgias Neurological: negative for headaches Exam: Wt Readings from Last 3 Encounters: 02/27/19 99.9 kg (220 lb 4.8 oz) 02/15/19 104 kg (229 lb 3.2 oz) 08/17/18 96.2 kg (212 lb) BP 130/73 Pulse 58 Temp 98.6 ??F (37 ??C) (Oral) Resp 18 Ht 1.803 m (5' 11 ) Wt 99.9 kg (220 lb 4.8oz) SpO2 100% BMI 30.73 kg/m2 General appearance: normal, alert, no distress, appears stated age Eyes: conjunctivae/corneas clear. Nose: Nares normal. Septum midline. Mucosa normal. Throat: Lips, mucosa, and tongue normal. Neck: supple, symmetrical, trachea midline Lungs: clear to auscultation bilaterally Heart: RRR, normal S1 and S2, no murmur Abdomen: soft, no masses palpable, non-tender, non-distended, bowel sounds normal Extremities: no ulcers, well perfused, 1+ BLE edema Skin: No rashes or lesions, no jaundice Neuro: Appropriate, oriented x 3, no asterixis Relevant Laboratories: Recent Labs Component Name 02/15/19 0307 02/14/19 0346 02/13/19 0440 02/03/19 0106 09/19/17 0243 09/18/17 0003 09/17/17 0433 09/06/17 1621 09/06/17 1211 09/06/17 1157 09/04/17 0447 09/03/17 0431 07/29/17 1130 BUN 17 18 17 - 19 26 25 19 - - - 21 11 13 - - CREATININE 1.02 1.10 0.97 - 1.22* 0.6 0.6 0.6 - - - 0.7 0.6 0.6 - - NA - - - - - 138 140 139 - - - 143 141 140 - - POTASSIUM 3.7 3.7 3.6 - 4.3 4.9* 3.4* 3.6 - - - 3.8 4.9* 4.4 - - K - - - - - - - - - 4.2 3.8 - - - - 3.3* CL - - - - - 98 95* 96* - - - 108* 107 107 - - CO2 28 28 28 - 25 34* 35* 32* - - - 20* 27 27 - - GLU - - - - - 153* 135* 120* - - - 170* 87 150* - - CALCIUM 8.6 8.4 8.6 - 9.5 9.1 9.0 8.8 - - - 8.5 8.4 8.6 - - PROT - - - - - - - - - - - 6.2 5.3* 5.4* - - ALB - - - - - - - - - - - 1.8* 1.5* 1.5* - - TBILI - - - - - - - - - - - 0.3 0.3 0.3 - - ALKPHOS - - - - 304* - - - - - - 204* 190* 212* - - ALT - - - - 21 - - - - - - 10 12 12 - - AST - - - - 20 - - - - - - 27 26 - - ANIONGAP 7* 5* 8 - 8 11 13 15 - - - 19* 12 10 - - BCR - - - - - 43* 42* 32* - - - 30* 18 22 - - OSMOLALITY - - - - - 294 296 291 - - - 303* 291 293 - - AGRATIO - - - - - - - - - - - 0.4* 0.4* 0.4* - - EGFR >60 >60 >60 - 59 >60 >60 >60 - - - >60 >60 >60 - - EGFRAFR >60 >60 >60 - >60 - - - - - - - - - - - - = values in this interval not displayed. Recent Labs Component Name 02/15/19 0307 02/14/19 0258 02/13/190 WBC 8.5 9.6 8.9 HGB 7.4* 7.7* 7.6* HCT 25.0* 26.0* 25.1* PLTCOUNT 284 288 287 Recent Labs Component Name 02/15/19 0307 02/14/19 0346 02/13/190 INR 1.9* 1.9* 1.3* MELD-Na score: 9 at 02/05/2019 2:38 AM MELD score: 8 at 02/05/2019 2:38 AM Calculated from: Serum Creatinine: 1.24 mg/dL at 02/05/2019 2:38 AM Serum Sodium: 136 mmol/L at 02/05/2019 2:38 AM Total Bilirubin: 1.0 mg/dL at 02/03/2019 1:06 AM INR(ratio): 1.1 at 02/03/2019 1:06 AM Age: 68 years Chronic liver disease workup: Component Latest [...] % 16 - 50 % 5 (L) Hizny-4-Pydhvgvhzen 90 - 200 mg/dL 223 (H) Phenotype (PI) Comment Hepatitis C Antibody Non-reactive Non-reactive HBc Antibody Total Non-reactive Non-reactive Hepatitis B Virus Surface Antigen Non-reactive Non-reactive Last endoscopies: EGD: -09/15/17: PEG placement. No esophageal varices. Colonoscopy: -Patient reports 2016 without polyps Last imaging: -US abd ltd 11/06/18: Hepatic cirrhosis without discrete hepatic lesion or intrahepatic biliary dilation. Patent hepatic vasculature. Liver biopsy/Fibroscan: Assessment: 1. Compensated MICHAUD cirrhosis -Transplant is not a consideration at this time due to low MELD, advanced age, and multiple comorbidities. 2. Metabolic syndrome 3. A fib 4. 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 Repeat imaging for HCC in May 2019. Will also check AFP at that time. 2. Plan for EGD in 2020 or if platelets drop <150. 3. Counseled regarding low sodium diet. 4. I have also recommended a high protein diet. I have asked him to return for a follow up visit in 6 months with MELD labs and AFP prior to that visit. Jackelyn Licona MD Material Handler Loader Division of Gastroenterology and Hepatology No orders of the defined types were placed in this encounter. Current Outpatient Medications Medication Sig ??? acetaminophen (TYLENOL) 325 MG tablet Take 650 mg by mouth every 4 hours as needed ??? albuterol (PROVENTIL;VENTOLIN) (5 MG/ML) 0.5% nebulizer solution 2.5 mg. ??? Ascorbic Acid 500 MG Take 500 mg by mouth 2 times daily ??? aspirin (ASPIRIN) 325 MG tablet Take 1 tablet by mouth 2 times daily for 30 days ??? baclofen (LIORESAL) 10 MG tablet Take 10 mg by mouth 2 times daily ??? benzonatate (TESSALON) 200 MG capsule Take 1 capsule by mouth 3 times daily as needed for Cough ??? bisacodyl (DULCOLAX) 10 MG suppository Insert 1 suppository into the rectum once daily as needed for Constipation ??? clotrimazole (LOTRIMIN AF) 1 % cream Apply to affected area 2 times daily ??? diphenhydrAMINE (BENADRYL) 25 MG capsule Take 25 mg by mouth every 6 hours as needed for Itching ??? lactulose (CHRONULAC) 10 GM/15ML solution Take 30 mL by mouth 3 times daily as needed for Constipation ??? metoprolol tartrate (LOPRESSOR) 25 MG tablet Take 1 tablet by mouth 2 times daily ??? omeprazole (PRILOSEC) 40 MG capsule Take 40 mg by mouth daily before breakfast ??? oxyCODONE-acetaminophen (PERCOCET) 10-325 MG tablet Take 1 tablet by mouth every 4 hours as needed ??? polyethylene glycol 3350 (MIRALAX) packet Take 17 g by mouth once daily ??? rifAMPin (RIFADIN) 300 MG capsule Take 2 capsules by mouth once daily for 45 days Reasons: Bacterial Infectious Arthritis ??? roflumilast (DALIRESP) 500 MCG tablet Take 500 mcg by mouth once daily ??? senna-docusate (SENOKOT-S) 8.6-50 MG tablet Take 2 tablets by mouth once daily ??? SYMBICORT 160-4.5 MCG/ACT inhaler INHALE 2 PUFFS BY MOUTH TWICE A DAY ??? tamsulosin (FLOMAX) 0.4 MG capsule Take 0.4 mg by mouth at bedtime ??? vancomycin HCl 1.25 g 1,250 mg in 0.9% NaCl 0.9 % 250 mL 1,250 mg by Intravenous route every 24hours for 45 days ??? vitamin D, ergocalciferol, (DRISDOL) 74740 UNITS capsule Take 50,000 Units by mouth every 7 days ??? warfarin (COUMADIN) 4 MG tablet Take 1 tablet by mouth once daily (Patient not taking: Reportedon 02/27/2019) ??? warfarin (COUMADIN) 5 MG tablet Take 1 tablet by mouth once daily No current facility-administered medications for this visit. documented in this encounter Plan of Treatment Upcoming Encounters Date Type Department Care Team (Late st Contact Info) Description 07/09/2024 12:30 PM CHILD MONITOR Office Visit [facility] - GI [address] [place] [address], [place] [address] Twin Miller MD [address] [place] [address] [place] [address] 09/19/2024 2:00 PM CDT Office Visit [facility] - Orthopedic Surgery [address] [place] [id number] Vandana Alexander MD [address] [address] documented as of this encounter Goals Goal [...] * US ABDOMEN LIMITED (05/16/2019 9:16 AM CHILD MONITOR) Anatomical Region Laterality Modality Abdomen Ultrasound 05/16/2019 9:05 AM CHILD MONITOR Impressions 05/16/2019 9:10 AM CHILD MONITOR IMPRESSION: 1. Hepatic cirrhosis. No discrete hepatic lesion or biliary dilatation. 2. Cholelithiasis without evidence of acute cholecystitis. Dictated by Jay Bowens MD (vice president quality) I, Dr. VANDANA HENSLEY M.D. have personally reviewed and interpreted this examination/study. This report was electronically signed by VANDANA HENSLEY M.D. ??on 05/16/2019 9:10 AM . Narrative 05/16/2019 9:10 AM CHILD MONITOR EXAMINATION: Limited abdominal sonogram HISTORY: 68-year-old male [...] acute cholecystitis. Dictated by Jay Bowens MD (vice president quality) I, Dr. VANDANA HENSLEY M.D. have personally reviewed and interpreted this examination/study. This report was electronically signed by VANDANA HENSLEY M.D. on 05/16/2019 9:10 AM . Jackelyn Licona MD ORDERABLES * ALPHA FETOPROTEIN BLOOD TUMOR (04/24/2019 11:41 AM CHILD MONITOR) Alpha-Fetoprotein Tumor Marker 0.8 0.0 - 8.3 ng/mL 04/25/2019 5:07 AM CHILD MONITOR [facility] Comment: [employer] Electrochemiluminescence Immunoassay (ECLIA) Values obtained with different assay methods or kits cannot be used interchangeably. ??Results cannot be interpreted as absolute evidence of the presence or absence of malignant disease. This test is not interpretable in females. Blood BLOOD SPECIMEN / Unknown Lab Venipuncture / Unknown 04/24/2019 11:41 AM CHILD MONITOR 04/24/2019 11:41 AM CHILD MONITOR Narrative [facility] - 04/25/2019 5:07 AM CHILD MONITOR Performed at: ??01 - [facility] [address] ??[id number] Business Applications Specialist: Erik Mcqueen PhD, Phone: ??[phone] Jackelyn Licona MD LAB - CHEMISTRY ROYCE K[facility] Organization Address City/State/ZIP Co de Phone Number [facility]) [address] [place] [address] documented in this encounter Visit Diagnoses Diagnosis Liver cirrhosis secondary to MICHAUD (HCC)- Primary Other chronic nonalcoholic liver disease Metabolic syndrome Dysmetabolic Syndrome X 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
--- OUTSIDE RECORDS SUMMARY | 2024-05-24 23:39 | XMS_ITS | Encounter Summary ---
Author Organization [facility] Address [address] [place] [address] Care Team Providers Care Implementation Manager Name Role Phone Briana Medeiros MD Primary Care Provider [phone] Reason for Visit * Auth/Cert Specialty Diagnoses / Procedures Referred By Contac t Referred To Contact Diagnoses Right hip infection Referral ID Status Reason Start Date Expiration Date Visits Re quested Visits Authorized [id number] 1 1 Encounter Details Date Type Department Care Team (Late st Contact Info) Description 02/08/2019 10:31 AM CDT - 02/08/2019 3:06 PM CDT Surgery [facility] PERIOPERATIVE [address] [place] [address] Larry Alexander MD [address] [address] REVISION HIP ARTHROPLASTY BOTH COMPONENT Surgery Details Date/Time Status Location OR Service Patient Class Case Class Case Type Trauma Case? 02/08/2019 10:31 AM Posted [facility] MAIN OR OR 03 Orthopedics Inpatient Elective > 5 days Panel 1 Procedure LRB Anes Op Region Wound Class Comments REVISION HIP ARTHROPLASTY ROZ TH COMPONENT Right General Hip Dirty or Infected EXCISION BURSA (BURSECTOMY) TROCHANTERIC/HIP Right General Hip Dirty or Infected CLOSURE PRIMARY DELAYED/SECO NDARY (ANY AREA) Right General Hip Dirty or Infected Surgeon Surgeon Role Service Panel Larry Alexander MD Primary Orthopedics 1 Special Needs #### 004 ### / NEEDS OEC C-ARM, OLD MORENITA TABLE / NEEDS WOUND VAC SUPPLIES--ITEMS KEPT IN O.R. SUPPLY ROOM; NEEDS WOUND VAC MACHINE FROM PATIENT'S ROOM SENT TO SURGERY WITH PATIENT--02/06 KW / NEEDS OTTO AND NEPHEW--REP. NOTIFIED BY SURGEON PER VARSHA RODRIGUEZ (DR. Laura SHELL)--02/06 KW documented in this encounter Social History Tobacco [...] Sign Reading Time Taken Comments Blood Pressure 115/62 02/08/2019 2:49 PM CDT Pulse 110 02/08/2019 2:49 PM CDT Temperature 36.6 ??C (97.9 ??F) 02/08/2019 2:49 PM CD T Respiratory Rate 18 02/08/2019 2:49 PM CDT Oxygen Saturation 96% 02/08/2019 2:49 PM CDT Inhaled Oxygen Concentration - - Weight 94.3 kg (208 lb) 02/02/2019 9:25 PM CDT Height 180.3 cm (5' 11 ) 02/02/2019 9:25 PM CDT Body Mass Index 31.97 02/02/2019 9:25 PM CDT documented in this encounter Functional [...] No 02/02/2019 documented as of this encounter Discharge Summaries * Poncho Cisneros MD - 02/15/2019 7:00 PM CDT Images from the original note were not included. Physician Discharge Summary Patient Name: José Miguel Keys Date of : 1950 Admit date: 02/02/2019 Discharge date: 02/15/2019 Admitting Physician: Lilly Jurado APRN-COLOR FINISHER Attending Physician: Poncho Cisneros MD Discharge Physician: Admission Diagnosis: Right prosthetic hip joint infection Past Medical History Past Medical History: Diagnosis [...] basilic ??? Seizures ??? Squamous cell carcinoma Resolved Diagnoses None found. Discharge Diagnoses Infection of right prosthetic hip joint Diagnostic Studies See hospital course Treatments See hospital course Procedures See hospital course Consults ID Orthopedic surgery Hospital Course Mr. Keys is a 68 y/o M with a history of CAD, atrial fibrillation, COPD, cirrhosis, [place] and complex history of MRSA bacteremia and epidural abscess in 2018. He has a history of right total hip [...] 100 mg BID for at least 6 month. PICC placed 02/13. Patient was discharged to SNF on 02/15. By problem: #Sepsis due to right hip hardware MRSA infection -Now s/p I/D x 2 by orthopaedics -Continue vancomycin and rifampin through April 01 -Will need 6 months (at least) of doxycycline 100 mg BID -Will need CMP, CBC, UA, and ESR/CRP obtained weekly with results faxed to Dr. Nevarez #A fib -Continue metoprolol 25 mg BID -Continue warfarin ?? #VAL[place] -Continue BiPAP ?? #COPD -Continue Symbicort Condition at discharge: good Disposition: group home facility Code Status At Discharge Full Code Patient Instructions Current Discharge Medication List START taking these medications Instructions Authorizing Provider benzonatate 200 MG capsule Commonly known as: TESSALON Take 1 capsule by mouth 3 times daily as needed for Cough Poncho Cisneros MD bisacodyl 10 MG suppository Commonly known as: DULCOLAX Insert 1 suppository into the rectum once daily as needed for Constipation Poncho Cisneros MD clotrimazole 1 % cream Commonly known as: LOTRIMIN AF Apply to affected area 2 times daily Poncho Cisneros MD lactulose 10 GM/15ML solution Commonly known as: CHRONULAC Take 30 mL by mouth 3 times daily as needed for Constipation Poncho Cisneros MD metoprolol tartrate 25 MG tablet Commonly known as: LOPRESSOR Take 1 tablet by mouth 2 times daily Poncho Cisneros MD oxyCODONE-acetaminophen 10-325 MG tablet Commonly known as: PERCOCET Quantity Dispensed: 30 tablet Take 1 tablet by mouth every 4 hours as needed Poncho Cisneros MD polyethylene glycol 3350 packet Commonly known as: MIRALAX Take 17 g by mouth once daily Poncho Cisneros MD rifAMPin 300 MG capsule Commonly known as: RIFADIN Quantity Dispensed: 60 capsule Take 2 capsules by mouth once daily for 45 days Reasons: Bacterial Infectious Arthritis Poncho Cisneros MD senna-docusate 8.6-50 MG tablet Commonly known as: SENOKOT-S Take 2 tablets by mouth once daily Poncho Cisneros MD vancomycin HCl 1.25 g 1,250 mg in 0.9% NaCl 0.9 % 250 mL Quantity Dispensed: 1 Each 1,250 mg by Intravenous route every 24 hours for 45 days Poncho Cisneros MD * warfarin 4 MG tablet Commonly known as: COUMADIN Quantity Dispensed: 100 tablet Take 1 tablet by mouth once daily Poncho Cisneros MD * warfarin 5 MG tablet Commonly known as: COUMADIN Take 1 tablet by mouth once daily Poncho Cisneros MD * This list has 2 medication(s) that are the same as other medications prescribed for you. Read thedirections carefully, and ask your doctor or other care provider to review them with you. CONTINUE taking these medications which have CHANGED Instructions Authorizing Provider aspirin 325 MG tablet What changed: ?? medication strength ?? how much to take ?? when to take this ?? reasons to take this Commonly known as: ASPIRIN Quantity Dispensed: 60 tablet Take 1 tablet by mouth 2 times daily for 30 days Poncho Cisneros MD CONTINUE taking these medications which have NOT CHANGED Instructions Authorizing Provider albuterol (5 MG/ML) 0.5% nebulizer solution Commonly known as: PROVENTIL;VENTOLIN Quantity Dispensed: 1 Box 2.5 mg. Igor Gilliam MD Ascorbic Acid 500 MG Take 500 mg by mouth 2 times daily baclofen 10 MG tablet Commonly known as: LIORESAL Take 10 mg by mouth 2 times daily DALIRESP 500 MCG tablet Generic drug: roflumilast Take 500 mcg by mouth once daily diphenhydrAMINE 25 MG capsule Commonly known as: BENADRYL Take 25 mg by mouth every 6 hours as needed for Itching omeprazole 40 MG capsule Commonly known as: PriLOSEC Take 40 mg by mouth daily before breakfast SYMBICORT 160-4.5 MCG/ACT inhaler Generic drug: budesonide-formoterol INHALE 2 PUFFS BY MOUTH TWICE A DAY tamsulosin 0.4 MG capsule Commonly known as: FLOMAX Take 0.4 mg by mouth at bedtime TYLENOL 325 MG tablet Generic drug: acetaminophen Take 650 mg by mouth every 4 hours as needed vitamin D (ergocalciferol) 40672 units capsule Commonly known as: DRISDOL Take 50,000 Units by mouth every 7 days STOP taking these medications bumetanide 0.5 MG tablet Commonly known as: BUMEX ELIQUIS 5 MG tablet Generic drug: apixaban ferrous sulfate 325 (65 FE) MG tablet lidocaine 5 % patch Commonly known as: LIDODERM metoprolol succinate XL 24hr 50 MG tablet Commonly known as: TOPROL XL nystatin 444488 UNIT/GM powder Commonly known as: MYCOSTATIN Oxygen triamcinolone acetonide 0.1 % cream Commonly known as: KENALOG vitamin B-12 500 MCG tablet Commonly known as: CYANOCOBALAMIN zinc sulfate 50 MG capsule Commonly known as: ZINCATE Discharge Procedure Orders Follow up Instructions Please continue to wear your home cpap/bipap during times of sleepiness, unless otherwise instructed. Some medications that you may have been prescribed or were used during a procedure may increase the chance of sleep apnea complications. Follow up instructions Please continue to wear your home cpap/bipap during times of sleepiness, unless otherwise instructed. Some medications that you may have been prescribed or were used during a procedure may increase the chance of sleep apnea complications. Follow up with Primary Care Provider (PCP) Our records show your Primary Care Provider (PCP) is Briana Medeiros MD. 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 [[id number]] Physical Exam Patient Vitals for the past 24 hrs: Temp Pulse Resp BP 02/15/19 1603 98.9 ??F (37.2 ??C) 95 16 136/78 02/15/19 1554 -- 86 16 -- 02/15/19 1509 -- (!) 115 -- -- 02/15/19 1138 98.2 ??F (36.8 ??C) 97 16 124/63 02/15/19 0903 -- 76 17 -- 02/15/19 0811 99 ??F (37.2 ??C) 84 18 131/68 02/15/19 0524 98.6 ??F (37 ??C) 77 18 135/83 02/15/19 0107 -- 77 19 -- 02/14/19 2047 97.8 ??F (36.6 ??C) 75 16 139/78 02/14/19 2019 -- 77 15 -- General appearance: awake, alert, cooperative, no distress Eyes: sclerae are anicteric and conjunctivae are pink Lungs: clear to auscultation b/l, non-labored breathing, no rales, no wheezes Heart: regular rhythm, normal S1 and S2, without murmurs, gallops or rubs Abdomen: soft without mass, non-tender, with normal bowel sounds Extremities: no clubbing, cyanosis or edema Neuro: AAOx3, non-focal Skin: no rashes Discharge time: 35 minutes with coordination of care with CM/SW, consultants, and nurse, education,medication reconciliation, discharge summary, and counseling patient Poncho Cisneros MD 02/15/2019 7:28 PM documented in this encounter Discharge Instructions * Discharge Instructions* Poncho Cisneros MD - 02/15/2019 7:19 AM CDT For the hip surgery: ?? Hip Precautions as follows: ? Posterior hip precautions- no flexion past 90 degrees, no adduction past midline, no internal rotation ?? Thigh high JORDAN hose when up during the day. ??May remove at night while sleeping ?? Patient may discontinue compression stocking after two weeks. ?? Ankle flexion exercises every hour during the day to prevent swelling and deep vein thrombosis prevention. ?? Continue EC ASA 325 mg po bid for one month for DVT prophylaxis. ?? Keep wound clean and dry. Change [...] until diogenes are removed. No tub soaks. ??No scrubbing aroundincision. ? Anna Maria to be removed??at [address] Alexander ?? Call [phone] to schedule the first follow-up appointment with in 3 weeks ?? Any questions or problems please call the office , or For antibiotics: The patient is to have vancomycin 1250 mg IV every 24 hours through April 01 Rifampin 600 mg daily should be continued through April 01 at well While on IV antibiotics, CMP, CBC, UA, ESR and CRP should be obtained weekly After April 01, doxycylcine 100 mg BID should be prescribed for at least six months For warfarin: Patient is on warfarin, needs INR monitoring documented in this encounter Medications at Time [...] Each 02/15/2019 04/01/2019 vitamin D, ergocalciferol, (DRISDOL) 27496 UNITS capsuleIndications:Ot her cirrhosis of liver (HCC) Take 50,000 Units by mouth every 7 days 0 02/02/2018 03/21/2023 warfarin (COUMADIN) 4 MG tablet Take 1 tablet by mouth once daily 100 tablet 11 02/15/2019 04/24/2019 warfarin (COUMADIN) 5 MG tablet Take 1 tablet by mouth once daily 02/15/2019 04/24/2019 documented as of this encounter Progress Notes * Gladis Pacheco RN - 02/15/2019 7:00 PM CDT Discharge summary and all the paper work and prescription given to patient. Single lumen PICC line in place and capped . Pt;s Ride him to [facility]. All the belonging handed over to patient. Called report to DONTAE Caballero. Gladis Pacheco RN 02/15/2019 8:05 PM * Mila Degroot MSW - 02/15/2019 3:52 PM CDT Facility Transfer Note Level of Care: Skilled Rehab Payor Source: Medicare Facility Name: (include name of person confirming admission): [facility]: [phone] () [phone] ([place]) [place] Made Aware of Special Needs (if applicable): N/A RN Call Report to: [phone], 100 meek RN RN Fax D/C Orders to: [phone] Transportation: Family Certificate of Medical Necessity rationale: not applicable Date/time of transfer: 02/15/19, TBD Accepting MD: Clay Completed and Signed [id number] (if applicable): not applicable Family/Other Notified of Transfer (name/phone): Extended Emergency Contact Information Primary Emergency Contact: Trinity Keys Address: [address] [place] [address] [place] [address] [facility] Mobile Relation: Spouse Hat Blocking Operator needed? No Authorization Skilled Care: not applicable Authorization for Transportation: not applicable Comments: They will accept pt up until 8 pm today. If pt is going to be later than 8 then he will need to wait until 02/16/19. CHRIS Clifford 02/15/2019 3:52 PM [phone] * Yoko Montgomery, OT - 02/15/2019 3:40 PM CDT Occupational Therapy Treatment Summary Chart reviewed for diagnosis and medical systems review. Nursing consented for OT. Explained purpose of OT and patient consented to participate in therapy. Precautions: R post hip pxns SUBJECTIVE: I'm supposed to go to rehab today Psychosocial: Patient Behaviors: Calm;Cooperative Pt's goal for therapy: use commode OBJECTIVE: Pain Assessment: Pain Rating Score #: 3 Pain Location : Hip Pain Orientation: Right Cognition: Orientation Level: Oriented X4 Level of Consciousness-Adult: Alert Cognition: Follows Commands-Consistent Attention Span: Attends with cues to redirect Functional Mobility: Bed Mobility: Supine to Sit: Activity Does Not Occur(presents in recliner) Transfers: Sit to Stand: Moderate Assistance;Requires Verbal Cues for Technique;Requires Physical Cues for Technique;Requires Physical Cues for Safety;Requires Verbal Cues for Safety Stand to Sit: Minimal Assistance;Requires Verbal Cues for Safety;Requires Physical Cues for Safety;Requires Verbal Cues for Technique;Requires Physical Cues for Technique Toilet Transfers: Minimal Assistance;Requires Verbal Cues for Safety;Requires Physical Cues for Safety;Requires Verbal Cues for Technique;Requires Physical Cues for Technique(bsc) Balance: Standing - Static: Fair +;With Both Upper Extremity's Support Standing - Dynamic: Fair;With Both Upper Extremity's Support ADL Tasks: Feeding: Set-up Oral Facial Hygiene: Minimal Assistance(standing at sink) Bathing: Activity Does Not Occur Upper Body Dressing: Set-up Lower Body Dressing: Activity Does Not Occur Toileting: Minimal Assistance(p bowel movement, clothing assist) Activity Tolerance/Vital Signs: Activity Tolerance: Requires rest breaks;Requires seated rest breaks;Requires standing rest breaks;Complains of fatigue after standing activity/gait SpO2: 100 % Pulse: (!) 115(p movement) ASSESSMENT: Pt followed for fxnal transfers, mobility with ww, seated toileting, A for standing andperi-care, standing hand hygiene at sink, standing rest breaks, vital signs and return to recliner.Pt fatigued during and after session, but O2 was 100% and HR 115. RN informed of pt's BM on bsc. Call light and phone in reach. All lines, monitors, IV's, equipment in place and intact pre and post visit. RN, notified of patient's performance/location end of session. Educated patient/family in role/goal of OT. Please refer to the Filed Flowsheet OT Treatment for further details. Refer to care plan for goals. RECOMMENDATIONS/PLAN: Cont per POC. OT Discharge Recommendations: Inpatient Rehab If this is the last Occupational Therapy visit, this serves as the discharge summary. Yoko Montgomery OT [phone] * Cheryl Mccoy, PharmD - 02/15/2019 2:38 PM CDT Warfarin per Pharmacy Protocol S/O José Miguel Keys is on warfarin for A. Fib, h/o DVT. Adverse events related to anticoagulation: None noted Home warfarin regimen: New start. Current Medications 0.9% NaCl injection 10-40 mL, Intracatheter, q8h albuterol (PROVENTIL;VENTOLIN) (2.5 MG/3ML) 0.083% nebulizer solution 2.5 mg, Inhalation, q6h ascorbic acid (VITAMIN C) tablet 500 mg, Oral, BID aspirin tablet 325 mg, Oral, BID budesonide-formoterol (SYMBICORT) 160-4.5 MCG/ACT inhaler 2 puff, Inhalation, BID clotrimazole (LOTRIMIN AF) 1 % cream, Topical, BID cyanocobalamin (VITAMIN B-12) tablet 500 mcg, Oral, QDAY metoprolol tartrate (LOPRESSOR) tablet 25 mg, Oral, BID morphine CR 12hr (MS CONTIN) tablet 15 mg, Oral, q12h pantoprazole EC (PROTONIX) tablet 40 mg, Oral, QDAY polyethylene glycol 3350 (MIRALAX) packet 17 g, Oral, QDAY rifAMPin (RIFADIN) capsule 600 mg, Oral, QDAY senna-docusate (SENOKOT-S) tablet 2 tablet, Oral, QDAY tamsulosin (FLOMAX) capsule 0.4 mg, Oral, AT BEDTIME vancomycin (VANCOCIN) IV dose per pharmacy, Does not apply, DIRECTED vancomycin HCl (VANCOCIN) 1,250 mg in 0.9% NaCl 250 mL IVPB, Intravenous, q24h warfarin (COUMADIN) dose per pharmacy MISC, Other, QDay 1700 warfarin (COUMADIN) tablet 5 mg, Oral, once warfarin zinc sulfate (ZINCATE) capsule 220 mg, Oral, QDAY [COMPLETED] warfarin (COUMADIN) tablet 4 mg, Oral, once warfarin Diet Order DIETARY NUTRITION SUPPLEMENTS DIETARY NUTRITION SUPPLEMENTS DIET REGULAR Labs Recent Labs Component Name 02/15/19 0307 02/14/19 0346 02/13/19 0440 PT 18.9* 18.3* 13.6* INR 1.9* 1.9* 1.3* Recent Labs Component Name 02/04/19 0737 09/10/17 0549 09/07/17 0428 PTT 26.4 29.7 32.8 Recent Labs Component Name 02/15/19 0307 02/14/19 0258 02/13/19 0440 HGB 7.4* 7.7* 7.6* HCT 25.0* 26.0* 25.1* PLTCOUNT 284 288 287 Recent Labs Component Name 02/03/19 0106 ALBUMIN 3.1* ALT 21 AST 20 TBIL 1.0 TPROT 7.0 No results for input(s): DDIMERMGL in the last 35791 hours. Warfarin Dose History Date INR Dose (mg) 02/11 1.0 5 mg 02/12 1.0 6 mg 02/13 1.3 5 mg 02/14 1.9 4 mg 02/15 INR = 1.9 Goal INR: 2.0 - 2.5. Assessment Today's INR is subtherapeutic and unchanged from yesterday. Dose was reduced yesterday after significant INR increase. Patient has been initiated on rifampin which is an inducer and can cause an increase in dosing needs. Patient previously on rivaroxaban then transitioned to apixaban prior to admission. Warfarin is new this admission. Baseline INR is normal however records report that imaging shows 'cirrhosis'. Will increase dose today to 5 mg and monitor response. Patient may require 5-7 mg/day while on rifampin. Will also monitor H/H as steadily declining. Plan 1. Warfarin dose: 5 mg po today 2. Daily INR Cheryl Mccoy PharmD 02/15/2019 2:38 PM * Raysa Nevarez MD - 02/15/2019 12:40 PM CDT Infectious Diseases Consult Note Patient's Primary Care Physician: Briana Medeiros MD Reason for Consultation: Right total hip arthroplasty infection Referring Physcian: Lilly Jurado APRN-COLOR FINISHER Name: José Miguel Keys Age: [age] year old 11 Hospital course Sitting up in chair Pain controlled Low-grade fever Placement in progress paragraphs Exam Vitals: 02/15/19 0524 02/15/19 0811 02/15/19 0903 02/15/19 1138 BP: 135/83 131/68 124/63 Pulse: 77 84 76 97 Resp: 18 16 Temp: 98.6 ??F (37 ??C) 99 ??F (37.2 ??C) 98.2 ??F (36.8 ??C) SpO2: 100% 100% 98% 99% Weight: 104 kg (229 lb 3.2 oz) Height: Temp (30hrs) Max:99 ??F (37.2 ??C) General appearance: Alert, does not look ill Lungs: Resonant, decreased air entry Heart: regular rate and rhythm, S1, S2 normal, no murmur, click, rub or gallop, Abdomen: Soft, not tender no hepatosplenomegaly Extremities: Right hip bandaged Skin: no rash/lesion Neuro exam no cranial nerve abnormalities no motor deficit Lines: MEDICATIONS FOR CURRENT ENCOUNTER: SCHEDULED MEDICATIONS: 0.9% NaCl injection 10-40 mL, Intracatheter, q8h albuterol (PROVENTIL;VENTOLIN) (2.5 MG/3ML) 0.083% nebulizer solution 2.5 mg, Inhalation, q6h ascorbic acid (VITAMIN C) tablet 500 mg, Oral, BID aspirin tablet 325 mg, Oral, BID budesonide-formoterol (SYMBICORT) 160-4.5 MCG/ACT inhaler 2 puff, Inhalation, BID clotrimazole (LOTRIMIN AF) 1 % cream, Topical, BID cyanocobalamin (VITAMIN B-12) tablet 500 mcg, Oral, QDAY metoprolol tartrate (LOPRESSOR) tablet 25 mg, Oral, BID morphine CR 12hr (MS CONTIN) tablet 15 mg, Oral, q12h pantoprazole EC (PROTONIX) tablet 40 mg, Oral, QDAY polyethylene glycol 3350 (MIRALAX) packet 17 g, Oral, QDAY rifAMPin (RIFADIN) capsule 600 mg, Oral, QDAY senna-docusate (SENOKOT-S) tablet 2 tablet, Oral, QDAY tamsulosin (FLOMAX) capsule 0.4 mg, Oral, AT BEDTIME vancomycin (VANCOCIN) IV dose per pharmacy, Does not apply, DIRECTED vancomycin HCl (VANCOCIN) 1,250 mg in 0.9% NaCl 250 mL IVPB, Intravenous, q24h warfarin (COUMADIN) dose per pharmacy MISC, Other, QDay 1700 zinc sulfate (ZINCATE) capsule 220 mg, Oral, QDAY ?? [COMPLETED] warfarin (COUMADIN) tablet 4 mg, Oral, once warfarin Data Recent Labs Component Name 02/15/19 0307 02/14/19 0258 02/13/19 0440 WBC 8.5 9.6 8.9 HGB 7.4* 7.7* 7.6* HCT 25.0* 26.0* 25.1* PLTCOUNT 284 288 287 Recent Labs Component Name 02/15/19 03002/14/19 0346 02/13/19 0440 SODIUM 141 141 142 [...] results for input(s): CDIFFTOXINAB in the last 49472 hours. No results for input(s): SEDRATE in the last 59325 hours. Recent Labs Component Name 08/15/17 0348 08/09/17 0745 08/05/17 0445 CRP 4.1* 32.0* 14.4* No results for input(s): CK in the last 05418 hours. .No results for input(s): VANCOTROUGH, VANCOPEAK, VANCSERIES in the last 88072 hours. Invalid input(s): VANCORAND Recent Labs Component Name 02/03/19 0106 07/14/17 2212 HGBA1C 5.8 6.3 Recent Labs Component Name 02/04/19 0617 08/26/17 1420 COLORUA Yellow - CLARITYUA Cloudy* - SPECGRAVUA 1.021 - PHUA 5.0 6.0 PROTEINUA Negative - BLOODUA Negative - LEUKOCYTEUA Negative - NITRITEUA Negative - GLUCOSEUA Negative - KETONEUA Trace* - BILIRUBINUA Negative - UROBILINUA Negative <2.0 RBCUA - 1 Microbiology cx MRSA Radiology Assessment Right total hip arthroplasty infection status post I and D procedures on February 04 and Hardware was retained Prior history of MRSA bacteremia a year ago complicated with empyema and epidural abscess Diabetes mellitus Coronary artery disease Plan --vancomycin, rifampin, tentative stop date April 01 --will need weekly labs CBC, CMP, sed rate, C-reactive protein Fax results to [phone] Please be advised that part of this text was done using voice recognition software. Errors may havebeen missed upon review. Raysa Nevarez MD * Mila Degroot MSW - 02/15/2019 12:14 PM CDT Social Work Progress Note Chart reviewed, this SW following today, work up and treatment is in progress, as per previous CM/SW notes, plan is: SNF. Pt would like to go to [facility]: [phone] (g) [phone]. SW made the referral and they are going to review for placement. SW will update once progress is made. 1551- Pt is accepted at [facility]: [phone] (f) [phone] and they can accept him today after he gets his IV vanc. Discharge Plan Disposition: SNF Transportation: Ambulance Anticipated Discharge Date: TBD Contacts: Extended Emergency Contact Information Primary Emergency Contact: Trinity Keys Address: [address] [place] [address] [place] [address] [facility] Mobile Relation: Spouse Hat Blocking Operator needed? No CHRIS Clifford 02/15/2019 12:14 PM [phone] * Christina Hamilton, PT - 02/15/2019 11:45 AM CDT Patient OK to be seen for treatment per nursing. See Filed Flowsheet under Summary for details. SUBJECTIVE: Patient tired but willing to walk with PT. Subjective: Patient is alert and agreeable to PT Pain Rating Score #: (no complaints) Pain Location : Hip Pain Orientation: Right OBJECTIVE: Cognition: Orientation Level: Oriented X4 Level of Consciousness-Adult: Alert Cognition: Follows Commands-Consistent;Attention/concentration-normal for age;Processing-Appropriate Mobility: Sit to Stand: Minimal Assistance Stand to Sit: Minimal Assistance Distance Ambulated: 50 FEET(x2) Ambulation: Assistive Device: Gait Belt;Walker-2 Wheeled Ambulation: Level of Assistance: Minimum Assistance Ambulation: Gait Deviations: Maira - Decreased;Increased Trunk Flexion;Step Length - Decreased Weight Bearing Status-RLE: Weight Bearing as Tolerated Posture: Sitting Posture: Forward Flexed Standing Posture: Forward Flexion Balance: Balance Scales/Tests Used: Standing: Static/Dynamic Standing - Static: Good - Standing - Dynamic: Good -;Fair +;With Both Upper Extremity's Support Activity Tolerance and Oxygen Requirements: Activity Tolerance: Requires standing rest breaks O2 L/M: 2 L/Minute(Pt requested oxy -nursing notified ) O2 DEVICE: Room Air - None Vital Signs: SpO2: 99 % Pulse: 97 Resp: 16 BP: 124/63 Treatment this date: Assisted patient off commode after BM, ambulated twice in hallway with 10 minute seated rest break. ASSESSMENT/RECOMMENDATIONS: Tolerated session well. Fatigued after large BM. Awaiting discharge disposition. If this is the last Physical Therapy visit, this serves as the discharge summary. All vitals stablethroughout visit; All lines, monitors, IV's, equipment in place and intact pre and post visit. 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 Also, currently receiving Rifampin. Current Labs: Recent Labs Component Name 02/15/19 0307 02/14/19 0346 02/14/19 0258 02/13/19 0440 BUN 17 18 - 17 CREATININE 1.02 1.10 - 0.97 WBC 8.5 - 9.6 8.9 Vancomycin Goal: 15-20 mcg/ml Will continue the current regimen at this time. Will obtain a vancomycin level this evening 02/15 [id number]. Will continue to adjust and monitor. Nicole Delgadillo, PharmD 02/15/2019 7:54 AM ADDENDUM Recent Labs Component Name 02/15/19 1650 02/12/19 0922 02/07/19 0409 02/06/19 0419 02/05/19 0238 02/04/19 1412 VANCORNDM - - 20.9 19.2 21.8 - VANCTROUGH 16.5 22.6* - - - 28.6* A/P: Level came back at 16.5 mcg/mL, within goal range of 15-20 mcg/mL. Will continue the current regimen at this time. Will obtain a vancomycin level in a few days if patient remains on therapy. Pharmacywill continue to follow and adjust regimen as necessary. Epi Sams PharmD 02/15/2019 6:30 PM * Chris Carter RN - 02/15/2019 7:02 AM CDT A&Ox4. C/o R hip pain with prn percocet and morphine CR for management. R hip dressing changed last night. PRN lactulose given and pt had a large bm. RLE edematous and elevated on pillow. SCDs on. PICC line in place on PATEL. CHG tx done. Pt is resting in bed with call light within reach. Vitals: 02/14/19 2019 02/14/19 2047 02/15/19 0107 02/15/19 0524 BP: 139/78 135/83 Pulse: 77 75 77 77 Resp: 15 18 Temp: 97.8 ??F (36.6 ??C) 98.6 ??F (37 ??C) SpO2: 100% 100% Weight: 104 kg (229 lb 3.2 oz) Height: Chris Carter RN 02/15/2019 7:03 AM * Chris Carter RN - 02/15/2019 7:01 AM CDT Problem: Isolation Goal: Prevent Transmission of Infection Outcome: Ongoing Problem: Pain/Discomfort Goal: Patient exhibits reduced pain/discomfort as evidenced by pain scores Outcome: Ongoing Goal: Patient uses pharmacological and non-pharmacological pain management strategies. Outcome: Ongoing Goal: Patient verbalizes acceptable level of pain relief and ability to engage in desired activity. Outcome: Ongoing * Cathy Baker RN - 02/14/2019 7:28 PM CDT Pt up in the room with the walker and stand by assist. No pain noted. pts appetite good. PICC line flushes good and has positive blood return. Cathy Baker RN 02/14/2019 7:32 PM * Poncho Cisneros MD - 02/14/2019 7:01 PM CDT Admit Date: 02/02/2019 8:57 PM Hospital Day: 12 Clinical Course Mr. Keys is a 68 y/o M with a history of CAD, a fib, COPD, cirrhosis, [place] and complex history of MRSA bacteremia and epidural abscess in 2017. He has a history of right total hip arthoplasty in 2005. He was admitted on 02/02 with a week of right hip pain; CT revealed a right hip abscess for which he underwent I/D by orthopaedics on 02/04 and 02/08. Cultures grew MRSA. The patient has been on vancomycin. ID consulted; recommending vancomycin and rifampin. PICC placed 02/13. New Symptoms Mr. Keys denies pain. Feeling well. Anxious to leave. Exam Vitals: 02/14/19 0859 02/14/19 1300 02/14/19 1355 02/14/19 1700 BP: 114/62 143/77 138/70 Pulse: 97 85 78 86 Resp: 18 14 17 18 Temp: 98.1 ??F (36.7 ??C) 97.7 ??F (36.5 ??C) 98 ??F (36.7 ??C) SpO2: 100% 100% 99% Weight: Height: General appearance: awake, alert, cooperative, no distress Eyes: sclerae are anicteric and conjunctivae are pink Lungs: clear to auscultation b/l, non-labored breathing, no rales, no wheezes Heart: regular rhythm, normal S1 and S2, without murmurs, gallops or rubs Abdomen: soft without mass, non-tender, with normal bowel sounds Extremities: no clubbing, cyanosis or edema Neuro: AAOx3, non-focal Skin: no rashes Data Intake/Output Summary (Last 24 hours) at 02/14/2019 1901 Last data filed at 02/14/2019 1856 Gross per 24 hour Intake 1080 ml Output 400 ml Net 680 ml No data found. Recent Labs Component Name 02/14/19 0258 02/13/19 0440 02/12/19 0315 10/10/18 1515 09/19/17 0243 09/18/17 0003 WBC 9.6 8.9 9.3 - 7.1 8.5 8.7 RBC 2.80* 2.73* 2.84* - 3.94* 2.85* 3.09* HGB 7.7* 7.6* 7.5* - 11.0* 8.1* 8.8* HCT 26.0* 25.1* 26.0* - 34.5* 28.0* 29.6* MCV 92.9 91.9 91.5 - 87.6 98.2* 95.8 MCHC 29.6* 30.3* 28.8* - 31.9* 28.9* 29.7* RDW - - - - 14.0 21.3* 21.4* RDWCV 17.0* 16.7* 16.3* - - - - PLTCOUNT 288 287 270 - 183 208 199 NEUTPCT 71.9 70.3 74.3* - - 79.2* 79.2* LYMPHPCT 8.6* 8.8* 8.4* - 9.3 - - EOSINPCT - - - - 4.2 - - BASOPHILPCT 0.5 0.6 0.4 - 0.6 - - GRANSIMMPCT 2.4* 3.4* 2.5* - - - - LYMPHABS 0.83* 0.78* 0.78* - - - - BASOABS 0.05 0.05 0.04 - - - - NRBCAUTO 0 0 0 - - - - - = values in this interval not displayed. Recent Labs Component Name 02/14/19 0346 02/13/19 0440 02/12/19 0315 02/03/19 0106 09/06/17 1157 09/04/17 0447 SODIUM 141 142 139 - 134* - - - POTASSIUM 3.7 3.6 3.5 - 4.3 - 3.8 4.9* CHLORIDE 108* 106 105 - 101 - - - CO2 28 28 27 - 25 - 20* 27 BUN 18 17 - 11 CREATININE 1.10 0.97 0.99 - 1.22* - 0.7 0.6 GLUCOSE 113* 106 114* - 112* - - - CALCIUM 8.4 8.6 8.7 - 9.5 - 8.5 8.4 ALBUMIN - - - - 3.1* - - - ALKPHOS - - - - 304* - 204* 190* ALT - - - - 21 - 10 12 AST - - - - 20 - 21 27 TBIL - - - - 1.0 - - - TPROT - - - - 7.0 - - - EGFR >60 >60 >60 - 59 - >60 >60 - = values in this interval not displayed. No results for input(s): MAGMGDL in the last 17484 hours. Recent Labs Component Name 09/19/17 0243 [...] 0.7 0.8 0.9 Recent Labs Component Name 02/14/19 0346 02/13/19 0440 02/12/19 0315 02/04/19 0737 09/10/17 0549 09/07/17 0428 INR 1.9* 1.3* 1.0 - 1.0 - - - 1.6 PT 18.3* 13.6* 11.0 - 11.1 - - - 18.8* PTT - - - - 26.4 - 29.7 - 32.8 - = values in this interval not displayed. Recent Labs Component Name 02/03/19 0106 07/14/17 2212 HGBA1C 5.8 6.3 MEDICATIONS FOR CURRENT ENCOUNTER: SCHEDULED MEDICATIONS: 0.9% NaCl injection 10-40 mL, Intracatheter, q8h albuterol (PROVENTIL;VENTOLIN) (2.5 MG/3ML) 0.083% nebulizer solution 2.5 mg, Inhalation, q6h ascorbic acid (VITAMIN C) tablet 500 mg, Oral, BID aspirin tablet 325 mg, Oral, BID budesonide-formoterol (SYMBICORT) 160-4.5 MCG/ACT inhaler 2 puff, Inhalation, BID clotrimazole (LOTRIMIN AF) 1 % cream, Topical, BID cyanocobalamin (VITAMIN B-12) tablet 500 mcg, Oral, QDAY metoprolol tartrate (LOPRESSOR) tablet 25 mg, Oral, BID morphine CR 12hr (MS CONTIN) tablet 15 mg, Oral, q12h pantoprazole EC (PROTONIX) tablet 40 mg, Oral, QDAY polyethylene glycol 3350 (MIRALAX) packet 17 g, Oral, QDAY rifAMPin (RIFADIN) capsule 600 mg, Oral, QDAY senna-docusate (SENOKOT-S) tablet 2 tablet, Oral, QDAY tamsulosin (FLOMAX) capsule 0.4 mg, Oral, AT BEDTIME vancomycin (VANCOCIN) IV dose per pharmacy, Does not apply, DIRECTED vancomycin HCl (VANCOCIN) 1,250 mg in 0.9% NaCl 250 mL IVPB, Intravenous, q24h warfarin (COUMADIN) dose per pharmacy MISC, Other, QDay 1700 zinc sulfate (ZINCATE) capsule 220 mg, Oral, QDAY [COMPLETED] warfarin (COUMADIN) tablet 4 mg, Oral, once warfarin ?? [] lidocaine (XYLOCAINE MPF) 1 % injection, Intradermal, Once ?? CONTINUOUS MEDICATIONS: PRN MEDICATIONS: 0.9% NaCl injection 10-40 mL, Intracatheter, PRN 0.9% NaCl injection 10-40 mL, Intracatheter, PRN acetaminophen (TYLENOL) tablet 650 mg, Oral, q6h PRN baclofen (LIORESAL) tablet 10 mg, Oral, BID PRN benzonatate (TESSALON) capsule 200 mg, Oral, TID PRN bisacodyl (DULCOLAX) suppository 10 mg, Rectal, QDAY PRN dextrose IV 12.5-25 g, Intravenous, PRN fentaNYL (PF) (SUBLIMAZE) injection 25 mcg, Intravenous, q4h PRN glucagon (GLUCAGEN) injection 1 mg, Intramuscular, PRN glucose (Diabetic Use) oral gel, Oral, PRN lactulose (CHRONULAC) solution 20 g, Oral, TID PRN ondansetron (ZOFRAN) injection 4 mg, Intravenous, q6h PRN oxyCODONE-acetaminophen (PERCOCET) 10-325 MG tablet 1 tablet, Oral, q4h PRN ?? trimethobenzamide (TIGAN) injection 200 mg, Intramuscular, q6h PRN Assessment and Plan #Sepsis due to right hip hardware MRSA infection -Now s/p I/D x 2 by orthopaedics -Continue vancomycin and rifampin through April 01 -Will need 6 months (at least) of doxycycline 100 mg BID -Will need CMP, CBC, UA, and ESR/CRP obtained weekly -PICC placed 02/13 #A fib -Continue metoprolol 25 mg BID -Continue warfarin #VAL[place] -Continue BiPAP #COPD -Continue Symbicort #Contstipation -Continue laxatives Dispo: Medically stable for discharge to facility whenever one becomes available. Poncho Cisneros MD [facility] Hospitalist 02/14/2019 7:02 PM * Neva Ratliff, [facility] - 02/14/2019 2:40 PM CDT Problem: Impaired Gas Exchange Goal: Resp rate/effort will be within specified limits Outcome: Ongoing Note: Mr. Keys continues on scheduled nebulizer tx. RT will continue to monitor and wean as able and maintain respiratory rate/effort within specified limits.Neva Ratliff, Respiratory Care Practitioner02/14/2019 2:40 PM * Cheryl Mccoy, PharmD - 02/14/2019 1:28 PM CDT Warfarin per Pharmacy Protocol S/O José Miguel Keys is on warfarin for A. Fib, h/o DVT. Adverse events related to anticoagulation: None noted Home warfarin regimen: New start. Current Medications 0.9% NaCl injection 10-40 mL, Intracatheter, q8h albuterol (PROVENTIL;VENTOLIN) (2.5 MG/3ML) 0.083% nebulizer solution 2.5 mg, Inhalation, q6h ascorbic acid (VITAMIN C) tablet 500 mg, Oral, BID aspirin tablet 325 mg, Oral, BID budesonide-formoterol (SYMBICORT) 160-4.5 MCG/ACT inhaler 2 puff, Inhalation, BID clotrimazole (LOTRIMIN AF) 1 % cream, Topical, BID cyanocobalamin (VITAMIN B-12) tablet 500 mcg, Oral, QDAY metoprolol tartrate (LOPRESSOR) tablet 25 mg, Oral, BID morphine CR 12hr (MS CONTIN) tablet 15 mg, Oral, q12h pantoprazole EC (PROTONIX) tablet 40 mg, Oral, QDAY polyethylene glycol 3350 (MIRALAX) packet 17 g, Oral, QDAY rifAMPin (RIFADIN) capsule 600 mg, Oral, QDAY senna-docusate (SENOKOT-S) tablet 2 tablet, Oral, QDAY tamsulosin (FLOMAX) capsule 0.4 mg, Oral, AT BEDTIME vancomycin (VANCOCIN) IV dose per pharmacy, Does not apply, DIRECTED vancomycin HCl (VANCOCIN) 1,250 mg in 0.9% NaCl 250 mL IVPB, Intravenous, q24h warfarin (COUMADIN) dose per pharmacy MISC, Other, QDay 1700 zinc sulfate (ZINCATE) capsule 220 mg, Oral, QDAY [COMPLETED] lidocaine (XYLOCAINE MPF) 1 % injection, Intradermal, Once [COMPLETED] warfarin (COUMADIN) tablet 5 mg, Oral, once warfarin [] lidocaine (XYLOCAINE MPF) 1 % injection, Intradermal, Once Diet Order DIETARY NUTRITION SUPPLEMENTS DIETARY NUTRITION SUPPLEMENTS DIET REGULAR Labs Recent Labs Component Name 02/14/19 0346 02/13/19 0440 02/12/19 0315 PT 18.3* 13.6* 11.0 INR 1.9* 1.3* 1.0 Recent Labs Component Name 02/04/19 0737 09/10/17 0549 09/07/17 0428 PTT 26.4 29.7 32.8 Recent Labs Component Name 02/14/19 0258 02/13/19 0440 02/12/19 0315 HGB 7.7* 7.6* 7.5* HCT 26.0* 25.1* 26.0* PLTCOUNT 288 287 270 Recent Labs Component Name 02/03/19 0106 ALBUMIN 3.1* ALT 21 AST 20 TBIL 1.0 TPROT 7.0 No results for input(s): DDIMERMGL in the last 50217 hours. Warfarin Dose History Date INR Dose (mg) 02/11 1.0 5 mg 02/12 1.0 6 mg 02/13 1.3 5 mg 02/14 INR = 1.9 Goal INR: 2.0 - 2.5. Assessment Today's INR is subtherapeutic but continues to increase and is very near goal on day 4 of therapy. Anticipate INR to continue to rise from 6 mg dose. Patient previously on rivaroxaban then transitioned to apixaban prior to admission. Warfarin is new this admission. Baseline INR is normal however records report that imaging shows 'cirrhosis'. Of note, rifampin was started 02/13 evening which is an 'inducer' and can lower the INR (thus necessitating increase in dose). However, due to light of cirrhosis and concern for continued INR increase (with narrow INR goal), will reduce dose today to 4 mg and monitor response. Plan 1. Warfarin dose: 4 mg po today 2. Daily INR Cheryl Mccoy PharmD 02/14/2019 1:28 PM * Raysa Nevarez MD - 02/14/2019 12:32 PM CDT Infectious Diseases Consult Note Patient's Primary Care Physician: Briana Medeiros MD Reason for Consultation: Right total hip arthroplasty infection Referring Physcian: Lilly Jurado APRN-COLOR FINISHER Name: José Miguel Keys Age: [age] year old 10 Seen yesterday Note not found in Epic Rifampin added D/w pt regarding possible side effects Exam Vitals: 02/14/19 0224 02/14/19 0624 02/14/19 0820 02/14/19 0859 BP: 145/81 114/62 Pulse: 89 79 83 97 Resp: 15 16 18 Temp: 97.5 ??F (36.4 ??C) 98.1 ??F (36.7 ??C) SpO2: 99% 100% Weight: Height: Temp (30hrs) Max:98.3 ??F (36.8 ??C) General appearance: Alert, does not look ill Lungs: Resonant, decreased air entry Heart: regular rate and rhythm, S1, S2 normal, no murmur, click, rub or gallop, Abdomen: Soft, not tender no hepatosplenomegaly Extremities: Right hip bandaged Skin: no rash/lesion Neuro exam no cranial nerve abnormalities no motor deficit Lines: MEDICATIONS FOR CURRENT ENCOUNTER: SCHEDULED MEDICATIONS: 0.9% NaCl injection 10 mL, Intracatheter, q8h 0.9% NaCl injection 10-40 mL, Intracatheter, q8h 0.9% NaCl injection 10-40 mL, Intracatheter, q8h albuterol (PROVENTIL;VENTOLIN) (2.5 MG/3ML) 0.083% nebulizer solution 2.5 mg, Inhalation, q6h ascorbic acid (VITAMIN C) tablet 500 mg, Oral, BID aspirin tablet 325 mg, Oral, BID budesonide-formoterol (SYMBICORT) 160-4.5 MCG/ACT inhaler 2 puff, Inhalation, BID clotrimazole (LOTRIMIN AF) 1 % cream, Topical, BID cyanocobalamin (VITAMIN B-12) tablet 500 mcg, Oral, QDAY metoprolol tartrate (LOPRESSOR) tablet 25 mg, Oral, BID morphine CR 12hr (MS CONTIN) tablet 15 mg, Oral, q12h pantoprazole EC (PROTONIX) tablet 40 mg, Oral, QDAY polyethylene glycol 3350 (MIRALAX) packet 17 g, Oral, QDAY rifAMPin (RIFADIN) capsule 600 mg, Oral, QDAY senna-docusate (SENOKOT-S) tablet 2 tablet, Oral, QDAY tamsulosin (FLOMAX) capsule 0.4 mg, Oral, AT BEDTIME vancomycin (VANCOCIN) IV dose per pharmacy, Does not apply, DIRECTED vancomycin HCl (VANCOCIN) 1,250 mg in 0.9% NaCl 250 mL IVPB, Intravenous, q24h warfarin (COUMADIN) dose per pharmacy MISC, Other, QDay 1700 zinc sulfate (ZINCATE) capsule 220 mg, Oral, QDAY [COMPLETED] lidocaine (XYLOCAINE MPF) 1 % injection, Intradermal, Once [COMPLETED] warfarin (COUMADIN) tablet 5 mg, Oral, once warfarin ?? [] lidocaine (XYLOCAINE MPF) 1 % injection, Intradermal, Once Data Recent Labs Component Name 02/14/19 0258 02/13/19 0440 02/12/19 0315 WBC 9.6 8.9 9.3 HGB 7.7* 7.6* 7.5* HCT 26.0* 25.1* 26.0* PLTCOUNT 288 287 270 Recent Labs Component Name 02/14/19 0346 02/13/19 0440 02/12/19 0315 SODIUM 141 142 139 POTASSIUM 3.7 3.6 3.5 CHLORIDE 108* 106 105 CO2 28 28 27 BUN 18 17 19 CREATININE 1.10 0.97 0.99 GLUCOSE 113* 106 114* CALCIUM 8.4 8.6 8.7 Recent Labs Component Name 02/03/19 0106 09/06/17 1157 09/04/17 0447 ALBUMIN 3.1* - - ALKPHOS 304* 204* 190* ALT 21 10 12 AST 20 21 27 TBIL 1.0 - - TPROT 7.0 - - No results for input(s): CDIFFTOXINAB in the last 62983 hours. No results for input(s): SEDRATE in the last 47357 hours. Recent Labs Component Name 08/15/17 0348 08/09/17 0745 08/05/17 0445 CRP 4.1* 32.0* 14.4* No results for input(s): CK in the last 60223 hours. .No results for input(s): VANCOTROUGH, VANCOPEAK, VANCSERIES in the last 84142 hours. 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 Errors may havebeen missed upon review. Raysa Nevarez MD * Carlita Menendez, RD/LD - 02/14/2019 12:31 PM CDT Problem: Nutrient: Increased nutrient needs (specify) Goal: Total intake will meet estimated nutrient needs Outcome: Ongoing Note: Nutrition Goal Progress: Progressing toward goal;Continue with current goal CLINICAL NUTRITION REASSESSMENT Assessment: Pt seen 2/2 LOS. Resting in bed during visit. Reports appetite improved with 83% average consumption past 48 hours. Good intake of supplements: Ensure HP BID and High Protein Gelatin with dinner. Ensure High Protein for Muscle Health provides 160 calories ,16 grams protein and 19 grams of carb per 8 oz serving. Prosource Gelatein (High protein gelatin) provides 150 calories, 20 grams of protein, & 21 g Carb per 4 oz. serving. Would like to continue receiving both. Possible discharge to SNF today. No questions regarding nutrition. Bowels moving. Labs reviewed: PTINR elevated, H/H low. Med/Surg History and Clinical Diagnoses: infected rt hip prosthesis, s/p I&D, wound vac, TME, sepsis, ckd, dm Current diet order: Regular Current supplement order: Ensure HP BID, High Protein Gelatin daily Food Allergies: No known food allergies P.O intake for past 48 hrs: % Meal Taken Av.5 % Min: 65 % Max: 100 % % Oral Supplement Intake:Oral Supplement % Taken Av % Min: 100 % Max: 100 % Pain affecting intake: No Patient Vitals for the past 336 hrs: Weight Weight Method (Utilize Scales) 02/12/19 0600 222 lb 9.6 oz (101 kg) Bedscale 02/02/192124 208 lb (94.3 kg) -- 02/02/192058 208 lb (94.3 kg) Stated No new Weight/Weight change: No new weight New Meds: No nutrition related LABS: Recent Labs Component Name 02/14/19 0346 02/03/19 0106 SODIUM 141 - 134* POTASSIUM 3.7 - 4.3 CHLORIDE 108* - 101 CO2 28 - 25 BUN - CREATININE 1.10 - 1.22* GLUCOSE 113* - 112* CALCIUM 8.4 - 9.5 ALBUMIN - - 3.1* ALKPHOS - - 304* ALT - - 21 AST - - 20 TBIL - - 1.0 TPROT - - 7.0 EGFR >60 - 59 - = values in this interval not displayed. Recent Labs Component Name 09/19/17 0243 09/18/17 0003 09/17/17 0433 PHOS 2.5 2.8 3.2 Recent Labs Component Name 02/03/19 0106 07/14/17 2212 HGBA1C 5.8 6.3 No results for input(s): PREALBUMIN in the last 72247 hours. No data found. Skin/Wound: incision Last BM: 02/13 Nutrition Care Process (1) Nutrition Diagnostic Statement: Increased nutrient needs related to:: increased demands for wound healing as evidenced by:: estimated protein needs .. Nutrition Diagnostic Statement Progress: Nutrition problem continues Nutrition Intervention: Meals and snacks:;Medical Food Supplements: Education needed: Supplements;Vit K Education was not indicated Pt educated previously Expected level of compliance: Good Following pt at moderate nutritional risk. Nutrition recommendation: agree with current nutrition order Continue to send Ensure HP BID and High Protein Gelatin daily Encourage po intake and ONS consumption Monitoring: PO intake Acceptance of oral nutrition supplement and intake Weights Labs GI function/bowel movements Skin Evaluation: Nutrition Goal: Total intake will meet estimated nutrient needs Nutrition Goal Timeframe: Within 24 - 72 hours AICHA Hall 02/14/2019 12:36 PM Ascom [id number] * Christina Hamilton, PT - 02/14/2019 11:35 AM CDT Problem: Therapy - Total Hip Arthroplasty Goal: STG - Patient will negotiate ___ step(s). Description 5 steps x 2 with rail(s) with min a Outcome: Ongoing Goal: STG - Patient is independent with home exercise program. Outcome: Ongoing Goal: TH STG - Able to move from supine to sitting. Description And perform all functional bed mobility with SBA Outcome: Ongoing * Christina Hamilton, PT - 02/14/2019 11:31 AM CDT Patient OK to be seen for treatment per nursing. See Filed Flowsheet under Summary for details. SUBJECTIVE: Patient agreeable to therapy. States legs are swollen from eating breakfast and dangling them over the side of bed. Pain Rating Score #: 6 Pain Location : Hip Pain Orientation: Right OBJECTIVE: Cognition: Orientation Level: Oriented X4 Level of Consciousness-Adult: Alert Cognition: Follows Commands-Consistent;Attention/concentration-normal for age;Processing-Appropriate Mobility: Sit to Stand: Minimal Assistance Stand to Sit: Minimal Assistance Distance Ambulated: 50 FEET Ambulation: Assistive Device: Gait Belt;Walker-2 Wheeled Ambulation: Level of Assistance: Minimum Assistance Ambulation: Gait Deviations: Antalgic;Maira - Decreased;Increased Trunk Flexion Weight Bearing Status-RLE: Weight Bearing as Tolerated Posture: Sitting Posture: Forward Flexed Standing Posture: Forward Flexion Balance: Balance Scales/Tests Used: Standing: Static/Dynamic Standing - Static: Good - Standing - Dynamic: Good -;With Both Upper Extremity's Support Activity Tolerance and Oxygen Requirements: Activity Tolerance: Requires rest breaks O2 L/M: 2 L/Minute(Pt requested oxy -nursing notified ) O2 DEVICE: Room Air - None Vital Signs: SpO2: 100 % Pulse: 97 Resp: 18 BP: 114/62 Treatment this date: Completed LE exercises in bed, ambulated in hallway with walker. Positioned inrecliner with SCDs and legs elevated. ASSESSMENT/RECOMMENDATIONS: Tolerated session well. Awaiting SNF placement. If this is the last Physical Therapy visit, this serves as the discharge summary. All vitals stablethroughout visit; All lines, monitors, IV's, equipment in place and intact pre and post visit. Christina Hamilton PT Ascom #[id number] * Raysa Nevarez MD - 02/14/2019 9:16 AM CDT Infectious Diseases Consult Note Patient's Primary Care Physician: Briana Medeiros MD Reason for Consultation: Right total hip arthroplasty infection Referring Physcian: Lilly Jurado APRN-COLOR FINISHER Name: José Miguel Keys Age: [age] year old 10 Hospital course Tolerated rifampin Pain controlled awaiting placement Review of systems Denies fever chills sweats No diarrhea Exam Vitals: 02/14/19 0224 02/14/19 0624 02/14/19 0820 02/14/19 0859 BP: 145/81 114/62 Pulse: 89 79 83 97 Resp: 15 18 Temp: 97.5 ??F (36.4 ??C) 98.1 ??F (36.7 ??C) SpO2: 99% 100% Weight: Height: Temp (30hrs) Max:98.3 ??F (36.8 ??C) General appearance: Alert, does not look ill Lungs: Resonant, decreased air entry Heart: regular rate and rhythm, S1, S2 normal, no murmur, click, rub or gallop, Abdomen: Soft, not tender no hepatosplenomegaly Extremities: Right hip bandaged Skin: no rash/lesion Neuro exam no cranial nerve abnormalities no motor deficit Lines: MEDICATIONS FOR CURRENT ENCOUNTER: SCHEDULED MEDICATIONS: 0.9% NaCl injection 10 mL, Intracatheter, q8h 0.9% NaCl injection 10-40 mL, Intracatheter, q8h 0.9% NaCl injection 10-40 mL, Intracatheter, q8h albuterol (PROVENTIL;VENTOLIN) (2.5 MG/3ML) 0.083% nebulizer solution 2.5 mg, Inhalation, q6h ascorbic acid (VITAMIN C) tablet 500 mg, Oral, BID aspirin tablet 325 mg, Oral, BID budesonide-formoterol (SYMBICORT) 160-4.5 MCG/ACT inhaler 2 puff, Inhalation, BID clotrimazole (LOTRIMIN AF) 1 % cream, Topical, BID cyanocobalamin (VITAMIN B-12) tablet 500 mcg, Oral, QDAY metoprolol tartrate (LOPRESSOR) tablet 25 mg, Oral, BID morphine CR 12hr (MS CONTIN) tablet 15 mg, Oral, q12h pantoprazole EC (PROTONIX) tablet 40 mg, Oral, QDAY polyethylene glycol 3350 (MIRALAX) packet 17 g, Oral, QDAY rifAMPin (RIFADIN) capsule 600 mg, Oral, QDAY senna-docusate (SENOKOT-S) tablet 2 tablet, Oral, QDAY tamsulosin (FLOMAX) capsule 0.4 mg, Oral, AT BEDTIME vancomycin (VANCOCIN) IV dose per pharmacy, Does not apply, DIRECTED vancomycin HCl (VANCOCIN) 1,250 mg in 0.9% NaCl 250 mL IVPB, Intravenous, q24h warfarin (COUMADIN) dose per pharmacy MISC, Other, QDay 1700 zinc sulfate (ZINCATE) capsule 220 mg, Oral, QDAY [COMPLETED] lidocaine (XYLOCAINE MPF) 1 % injection, Intradermal, Once [COMPLETED] warfarin (COUMADIN) tablet 5 mg, Oral, once warfarin ?? [] lidocaine (XYLOCAINE MPF) 1 % injection, Intradermal, Once Data Recent Labs Component Name 02/14/19 0258 02/13/1943902/12/19314 WBC 9.6 8.9 9.3 HGB 7.7* 7.6* 7.5* HCT 26.0* 25.1* 26.0* PLTCOUNT 288 287 270 Recent Labs Component Name 02/14/19 0346 09/10/19 0440 09/09/19 0315 SODIUM 141 142 139 POTASSIUM 3.7 3.6 3.5 CHLORIDE 108* 106 105 CO2 28 28 27 BUN 18 17 19 CREATININE 1.10 0.97 0.99 GLUCOSE 113* 106 114* CALCIUM 8.4 8.6 8.7 Recent Labs Component Name 02/03/19 0106 09/06/17 1157 09/04/17 0447 ALBUMIN 3.1* - - ALKPHOS 304* 204* 190* ALT 21 10 12 AST 20 21 27 TBIL 1.0 - - TPROT 7.0 - - No results for input(s): CDIFFTOXINAB in the last 42524 hours. No results for input(s): SEDRATE in the last 29058 hours. Recent Labs Component Name 08/15/17 0348 08/09/17 0745 08/05/17 0445 CRP 4.1* 32.0* 14.4* No results for input(s): CK in the last 35140 hours. .No results for input(s): VANCOTROUGH, VANCOPEAK, VANCSERIES in the last 19555 hours. 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 Cisneros Please be advised that part of this text was done using voice recognition software. Errors may havebeen missed upon review. Raysa Nevarez MD * Alberto Shell MD - 02/14/2019 6:30 AM CDT [facility] Orthopedic Surgery Daily Progress Note José Miguel Keys, 68 year old, male : 1950 CSN: [id number] Primary Care Physician: Briana Medeiros MD - Admission Date/Time: 02/02/2019 8:57 PM -Today's Date/Time: 02/14/2019 6:31 AM Subjective Patient seen and examined this AM on rounds. No new problems or issues overnight. Pain controlled this morning. Denies any new numbness/paresthesias. PICC line placed yesterday. Plan for DC to SNF today. Vitals Temp (24hrs), Av.7 ??F (36.5 ??C), Min:97.2 ??F (36.2 ??C), Max:98.3 ??F (36.8 ??C) BP 145/81 Pulse 79 Temp 97.5 ??F (36.4 ??C) (Oral) Resp 16 Ht 5' 11 (1.803 m) Wt 222 lb 9.6 oz (101 kg) SpO2 99% BMI 31.05 kg/m2 Labs Recent Labs Component Name 02/14/19 0258 02/13/19 0440 02/12/19 0315 WBC 9.6 8.9 9.3 HGB 7.7* 7.6* 7.5* HCT 26.0* 25.1* 26.0* PLTCOUNT 288 287 270 Recent Labs Component Name 02/14/19 0346 02/13/19 0440 02/12/19 0315 INR 1.9* 1.3* 1.0 Cultures Initial OR wound cultures with MRSA Physical Exam General appearance: Awake, cooperative, no acute distress, RLE -Inspection: dressings intact with shadowing -Motor: Able to plantarflex ankle, able to dorsiflex ankle, able to plantarflex great toe, able to dorsiflex great toe -Sensation: SILT to dorsal/plantar foot -Vascular: 2+ DP pulse with brisk capillary refill, toes warm and well perfused Assessment/Plan Active Problems: Infection of right prosthetic hip joint Patient is a 68 year old, male with infected right total hip arthroplasty from 2005 -s/p right hip I&D and wound vac application on??02/04/2019??with Dr. Alexander - s/p: Right hip I&D with Femoral head and poly exchange with delayed primary closure 02/08/[address] Alexander 1. Activity/Weight-bearing status: WBAT RLE with posterior hip precautions 2. Current Dispo: DC to SNF today 3. Nursing wound care order placed for dressing change today with Island dressing prior to DC 4. Anticoagulation Status: Coumadin 5. Antibiotics: Vancomycin via PICC, Rifampin 6. Wound care: Keep wound clean and dry. Daily or every other day dressing changes with dry gauze and tape as needed for saturation. After diogenes/sutures have been removed it is OK to shower but leave wound covered with a dressing in the shower. After shower, remove the wet dressing, pat dry, and apply antibiotic ointment over wound then place a clean dry dressing. 7. Diet: regular 8. PT/OT 9. Pain Control 10. Orthopedics will continue to follow. Please page with any questions or concerns Please give the following instructions to the patient upon discharge/transfer: ?? Hip Precautions as follows: ?? Posterior hip precautions- no flexion past 90 degrees, no adduction past midline, no internal rotation ?? Thigh high JORDAN hose when up during the day. May remove at night while sleeping ?? Patient may discontinue compression stocking after two weeks. ?? Ankle flexion exercises every hour during the day to prevent swelling and deep vein thrombosis prevention. ?? Continue EC ASA 325 mg po bid for one month for DVT prophylaxis. ?? If on coumadin: weekly INR's please fax results to clinic ( [facility], [phone] for [facility]) ?? Keep wound clean and dry. Daily or every other day dressing changes with [...] tub soaks. No scrubbing around incision. ?? Anna Maria to be removed at [address] Alexander ?? Call [phone] to schedule the first follow-up appointment with Dr. Alexander in 3 weeks ?? Any questions or problems please call the office , or Alberto Shell MD 02/14/2019 6:31 AM * Aurora Granados RN - 02/14/2019 6:12 AM CDT Problem: Pain/Discomfort Goal: Patient exhibits reduced pain/discomfort as evidenced by pain scores Outcome: Ongoing Note: Patient will exhibit reduced pain scores. No C/O pain or discomfort during shift. Will continue to assess pain level Goal: Patient verbalizes acceptable level of pain relief and ability to engage in desired activity. Outcome: Ongoing Note: Patient has no C/O pain or discomfort Problem: Hemodynamic Status/Cardiac Output Goal: Patient has stable vital signs and fluid balance Flowsheets Taken 02/14/2019 0125 by Anika Biggs Temp: 97.2 ??F (36.2 ??C) BP: 134/78 SpO2: 100 % Taken 02/14/2019 0224 by Lyndsay Kolb, Respiratory Care Practitioner Pulse: 89 Resp: 15 Note: Patient will have stable vital signs during shift. VS's stable, will continue to monitor * Aurora Granados RN - 02/14/2019 6:01 AM CDT Shift Summary 2300 to 0700: A&OX4, VSS, Afib 60's-90's with pvc's on telemetry monitoring. No C/O pain or discomfort during shift. Patient slept through the night with cpap on. Will continue to monitor and assess * Chris Carter RN - 02/13/2019 11:13 PM CDT A&Ox4. C/o R hip pain with prn percocet and morphine CR for management. R hip dressing with moddrainage. RLE edematous and elevated on pillow. SCDs on. PICC line in place on PATEL. Pt is resting in bed with family member at bedside. Chris Carter RN 02/13/2019 11:15 PM * Poncho Cisneros MD - 02/13/2019 7:34 PM CDT Admit Date: 02/02/2019 8:57 PM Hospital Day: 11 Clinical Course Mr. Keys is a 68 y/o M with a history of CAD, a fib, COPD, cirrhosis, VALENTINA and complex history of MRSA bacteremia and epidural abscess in 2018. He has a history of right total hip arthoplasty in 2005. He was admitted on 02/02 with a week of right hip pain; CT revealed a right hip abscess for which he underwent I/D by orthopaedics on 02/04 and 02/08. Cultures grew MRSA. The patient has been on vancomycin. ID consulted; recommending vancomycin and rifampin. PICC placed 02/13. New Symptoms Patient feels well without complains. Exam Vitals: 02/13/19 1003 02/13/19 1414 02/13/19 1549 02/13/19 1704 BP: 145/80 137/71 Pulse: 96 86 78 90 Resp: 16 17 18 25 Temp: 97.9 ??F (36.6 ??C) 97.8 ??F (36.6 ??C) SpO2: 100% 99% 93% 98% Weight: Height: General appearance: awake, alert, cooperative, no distress Eyes: sclerae are anicteric and conjunctivae are pink Lungs: clear to auscultation b/l, non-labored breathing, no rales, no wheezes Heart: regular rhythm, normal S1 and S2, without murmurs, gallops or rubs Abdomen: soft without mass, non-tender, with normal bowel sounds Extremities: no clubbing, cyanosis or edema. Right lateral hip dressing c/d/i Neuro: AAOx3, non-focal Skin: no rashes Data Intake/Output Summary (Last 24 hours) at 02/13/2019 193 Last data filed at 02/13/2019 1400 Gross per 24 hour Intake 960 ml Output -- Net 960 ml No data found. Recent Labs Component Name 02/13/1943902/12/1931402/11/1924110/10/18 1515 09/19/17 0243 09/18/17 0003 WBC 8.9 9.3 10.3 - 7.1 8.5 8.7 RBC 2.73* 2.84* 2.87* - 3.94* 2.85* 3.09* HGB 7.6* 7.5* 8.0* - 11.0* 8.1* 8.8* HCT 25.1* 26.0* 26.4* - 34.5* 28.0* 29.6* MCV 91.9 91.5 92.0 - 87.6 98.2* 95.8 MCHC 30.3* 28.8* 30.3* - 31.9* 28.9* 29.7* RDW - - - - 14.0 21.3* 21.4* RDWCV 16.7* 16.3* 16.2* - - - - PLTCOUNT 287 270 277 - 183 208 199 NEUTPCT 70.3 74.3* 74.0* - - 79.2* 79.2* LYMPHPCT 8.8* 8.4* 7.8* - 9.3 - - EOSINPCT - - - - 4.2 - - BASOPHILPCT 0.6 0.4 0.4 - 0.6 - - GRANSIMMPCT 3.4* 2.5* 2.3* - - - - LYMPHABS 0.78* 0.78* 0.81* - - - - BASOABS 0.05 0.04 0.04 - - - - NRBCAUTO 0 0 0 - - - - - = values in this interval not displayed. Recent Labs Component Name 02/13/1943902/12/1931402/11/19 0242 02/03/19 0106 09/06/17 1157 09/04/17 0447 SODIUM 142 139 137 - 134* - - - POTASSIUM 3.6 3.5 3.5 - 4.3 - 3.8 4.9* CHLORIDE 106 105 101 - 101 - - - CO2 28 27 27 - 25 - 20* 27 BUN 17 19 21 - 19 - 21 11 CREATININE 0.97 0.99 1.00 - 1.22* - 0.7 0.6 GLUCOSE 106 114* 113* - 112* - - - CALCIUM 8.6 8.7 9.0 - 9.5 - 8.5 8.4 ALBUMIN - - - - 3.1* - - - ALKPHOS - - - - 304* - 204* 190* ALT - - - - 21 - 10 12 AST - - - - 20 - 21 27 TBIL - - - - 1.0 - - - TPROT - - - - 7.0 - - - EGFR >60 >60 >60 - 59 - >60 >60 - = values in this interval not displayed. No results for input(s): MAGMGDL in the last 27135 hours. Recent Labs Component Name 09/19/17 0243 [...] 0.7 0.8 0.9 Recent Labs Component Name 02/13/19 0440 02/12/19 0315 02/11/19 1434 02/04/19 0737 09/10/17 0549 09/07/17 0428 INR 1.3* 1.0 1.0 1.0 - - - 1.6 PT 13.6* 11.0 11.0 11.1 - - - 18.8* PTT - - - 26.4 - 29.7 - 32.8 - = values in this interval not displayed. Recent Labs Component Name 02/03/19 0106 07/14/17 2212 HGBA1C 5.8 6.3 MEDICATIONS FOR CURRENT ENCOUNTER: ?? SCHEDULED MEDICATIONS: ?? 0.9% NaCl injection 10 mL, Intracatheter, q8h ?? 0.9% NaCl injection 10-40 mL, Intracatheter, q8h ?? 0.9% NaCl injection 10-40 mL, Intracatheter, q8h ?? albuterol (PROVENTIL;VENTOLIN) (2.5 MG/3ML) 0.083% nebulizer solution 2.5 mg, Inhalation, q6h ?? ascorbic acid (VITAMIN C) tablet 500 mg, Oral, BID ?? aspirin tablet 325 mg, Oral, BID ?? budesonide-formoterol (SYMBICORT) 160-4.5 MCG/ACT inhaler 2 puff, Inhalation, BID ?? clotrimazole (LOTRIMIN AF) 1 % cream, Topical, BID ?? cyanocobalamin (VITAMIN B-12) tablet 500 mcg, Oral, QDAY ?? lidocaine (XYLOCAINE MPF) 1 % injection, Intradermal, Once ?? metoprolol tartrate (LOPRESSOR) tablet 25 mg, Oral, BID ?? morphine CR 12hr (MS CONTIN) tablet 15 mg, Oral, q12h ?? pantoprazole EC (PROTONIX) tablet 40 mg, Oral, QDAY ?? polyethylene glycol 3350 (MIRALAX) packet 17 g, Oral, QDAY ?? rifAMPin (RIFADIN) capsule 600 mg, Oral, QDAY ?? senna-docusate (SENOKOT-S) tablet 2 tablet, Oral, QDAY ?? tamsulosin (FLOMAX) capsule 0.4 mg, Oral, AT BEDTIME ?? vancomycin (VANCOCIN) IV dose per pharmacy, Does not apply, DIRECTED ?? vancomycin HCl (VANCOCIN) 1,250 mg in 0.9% NaCl 250 mL IVPB, Intravenous, q24h ?? warfarin (COUMADIN) dose per pharmacy MISC, Other, QDay 1700 ?? zinc sulfate (ZINCATE) capsule 220 mg, Oral, QDAY ?? [COMPLETED] lidocaine (XYLOCAINE MPF) 1 % injection, Intradermal, Once ?? [COMPLETED] warfarin (COUMADIN) tablet 5 mg, Oral, once warfarin ?? CONTINUOUS MEDICATIONS: ?? PRN MEDICATIONS: ?? 0.9% NaCl injection 10-40 mL, Intracatheter, PRN ?? 0.9% NaCl injection 10-40 mL, Intracatheter, PRN ?? acetaminophen (TYLENOL) tablet 650 mg, Oral, q6h PRN ?? baclofen (LIORESAL) tablet 10 mg, Oral, BID PRN ?? benzonatate (TESSALON) capsule 200 mg, Oral, TID PRN ?? bisacodyl (DULCOLAX) suppository 10 mg, Rectal, QDAY PRN ?? dextrose IV 12.5-25 g, Intravenous, PRN ?? fentaNYL (PF) (SUBLIMAZE) injection 25 mcg, Intravenous, q4h PRN ?? glucagon (GLUCAGEN) injection 1 mg, Intramuscular, PRN ?? glucose (Diabetic Use) oral gel, Oral, PRN ?? lactulose (CHRONULAC) solution 20 g, Oral, TID PRN ?? ondansetron (ZOFRAN) injection 4 mg, Intravenous, q6h PRN ?? oxyCODONE-acetaminophen (PERCOCET) 10-325 MG tablet 1 tablet, Oral, q4h PRN ?? trimethobenzamide (TIGAN) injection 200 mg, Intramuscular, q6h PRN Assessment and Plan #Sepsis due to right hip hardware MRSA infection -Now s/p I/D x 2 by orthopaedics -Continue vancomycin and rifampin -Will need CMP, CBC, UA, and CRP obtained weekly -PICC placed 02/13 #A fib -Continue metoprolol 25 mg BID -Continue warfarin #VALENTINA -Continue BiPAP #COPD -Continue Symbicort #Contstipation -Continue laxatives Dispo: DC to facility tomorrow Poncho Cisneros MD [facility] Hospitalist 02/13/2019 7:45 PM * Efrain Rojas RN - 02/13/2019 6:03 PM CDT Shift summary: patient up amb with walker, CHG bath done, appetite fair, PICC Line placed for IVABX, taught PICC line care, how to flush and occupational therapist per diem ivabx . Patient thinking about taking patient with home health. demonstrated how to flush and disconnect pt from iv pump. Call light and phone within reach. * Fay Otero, OUTREACH ANALYST - 02/13/2019 3:09 PM CDT Spoke with admission coordinator for [facility] who verified that the facility has a male bed available. Pt medical record faxed to [facility]. OUTREACH ANALYST will continue to follow and coordinate d/c. CHRIS Herrera 02/13/2019 3:12 PM [phone] * Christina Hamilton, PT - 02/13/2019 1:23 PM CDT Attempted to see pt for PT treatment. Unable to complete visit secondary to patient having PICC line placed. Will attempt another time. Christina Hamilton, PT Ext.[phone] * Fay Otero OUTREACH ANALYST - 02/13/2019 11:37 AM CDT Spoke with admission coordinator for [facility] facility does not have a male bed available. Message left for admission coordinator for [facility] re: bed availability. OUTREACH ANALYST will continue to follow and coordinate d/c. CHRIS Herrera 02/13/2019 11:43 AM [phone] * Zbigniew Sandoval RN - 02/13/2019 8:23 AM CDT A&Ox4. VSS. Affect can be flat at times. No pain at rest, controlled with PO pain meds. Tolerating diet. Aquacel dressing c/d/i. x1 assist to stand. Resting in bed with call light in reach. Zbigniew Sandoval RN * Cheryl Mccoy, PharmD - 02/13/2019 7:23 AM CDT Warfarin per Pharmacy Protocol S/O José Miguel Keys is on warfarin for A. Fib, h/o DVT. Adverse events related to anticoagulation: None noted Home warfarin regimen: New start. Current Medications 0.9% NaCl injection 10 mL, Intracatheter, q8h 0.9% NaCl injection 10-40 mL, Intracatheter, q8h albuterol (PROVENTIL;VENTOLIN) (2.5 MG/3ML) 0.083% nebulizer solution 2.5 mg, Inhalation, q6h ascorbic acid (VITAMIN C) tablet 500 mg, Oral, BID aspirin tablet 325 mg, Oral, BID budesonide-formoterol (SYMBICORT) 160-4.5 MCG/ACT inhaler 2 puff, Inhalation, BID clotrimazole (LOTRIMIN AF) 1 % cream, Topical, BID cyanocobalamin (VITAMIN B-12) tablet 500 mcg, Oral, QDAY lidocaine (XYLOCAINE MPF) 1 % injection, Intradermal, Once metoprolol tartrate (LOPRESSOR) tablet 25 mg, Oral, BID morphine CR 12hr (MS CONTIN) tablet 15 mg, Oral, q12h pantoprazole EC (PROTONIX) tablet 40 mg, Oral, QDAY polyethylene glycol 3350 (MIRALAX) packet 17 g, Oral, QDAY senna-docusate (SENOKOT-S) tablet 2 tablet, Oral, QDAY tamsulosin (FLOMAX) capsule 0.4 mg, Oral, AT BEDTIME vancomycin (VANCOCIN) IV dose per pharmacy, Does not apply, DIRECTED vancomycin HCl (VANCOCIN) 1,250 mg in 0.9% NaCl 250 mL IVPB, Intravenous, q24h warfarin (COUMADIN) dose per pharmacy MISC, Other, QDay 1700 warfarin (COUMADIN) tablet 5 mg, Oral, once warfarin zinc sulfate (ZINCATE) capsule 220 mg, Oral, QDAY [COMPLETED] warfarin (COUMADIN) tablet 6 mg, Oral, once warfarin Diet Order DIETARY NUTRITION SUPPLEMENTS DIETARY NUTRITION SUPPLEMENTS DIET REGULAR Labs Recent Labs Component Name 02/13/19 0440 02/12/19 0315 02/11/19 1434 PT 13.6* 11.0 11.0 INR 1.3* 1.0 1.0 Recent Labs Component Name 02/04/19 0737 09/10/17 0549 09/07/17 0428 PTT 26.4 29.7 32.8 Recent Labs Component Name 02/13/19 0440 02/12/19 0315 02/11/19 0242 HGB 7.6* 7.5* 8.0* HCT 25.1* 26.0* 26.4* PLTCOUNT 287 270 277 Recent Labs Component Name 02/03/19 0106 ALBUMIN 3.1* ALT 21 AST 20 TBIL 1.0 TPROT 7.0 No results for input(s): DDIMERMGL in the last 82626 hours. Warfarin Dose History Date INR Dose (mg) 02/11 1.0 5 mg 02/12 1.0 6 mg 02/13 INR = 1.3 Goal INR: 2.0 - 2.5. Assessment Today's INR is subtherapeutic but increased (likely from initial 5 mg dose). Patient previously on rivaroxaban then transitioned to apixaban prior to admission. Warfarin is new this admission. Baseline INR is normal however records report that imaging shows 'cirrhosis'. Due to INR rise, will use caution and reduce warfarin back to 5 mg dose and monitor response. Plan 1. Warfarin dose: 5 mg po today 2. Daily INR Cheryl Mccoy PharmD 02/13/2019 7:23 AM * Blaire Meek MD - 02/12/2019 7:09 PM CDT 02/12/2019 7:09 PM Admitted: 02/02/2019 8:57 PM HD: 10 CC: Right hip pain Summary:??68 year old??white male with hx CAD, atrial fibrillation, prior DVT, COPD, cirrhosis, OSAwho presents with 1 week of right hip pain with associated swelling and redness of the region.He went to [facility] and workup there including CT of the right hip revealed suspected abscess for which he was transferred here for further evaluation by [facility] Orthopedics. Has history of MRSA bacteremia and epidural abscess as well. He is community dwelling living with his . Current symptoms: BM 9/. +BM. Pain is better. Per patient he was able to stand and transfer with only minimal/standby assist. Nausea seems better. Appetite improving and taking his oral supplements as well. No shortness of breath or chest pain. No fevers or chills noted. PE: Filed Vitals: 02/12/19 0816 02/12/19 0857 02/12/19 1357 02/12/19 1714 BP: 114/51 117/71 Pulse: 92 95 92 85 Resp: 16 16 18 18 Temp: 97.8 ??F (36.6 ??C) 98.4 ??F (36.9 ??C) TempSrc: Oral Oral SpO2: 97% 99% 99% 98% Weight: Height: 303 mL positive yesterday., 700 mL positive today. Gen:ASA, mild distress. Does not appear in pain. A + O x3. HEENT: NCAT CV: Irregulary, irregular, No m/g/r. Carol: No adventitial sounds or wheezes, no cough noted Abd: benign Neuro: nonfocal; proprioception, gait not tested. Reflexes intact Psych: approp. No Si/Hi Skin: wound c/d/i. Some blood on dressing, will change postop day 7. MSK: DELICIA Bilbipin. Nl personal insurance advisor appreciated. No cce, no erythema of surgical site Recent Labs Component Name 02/12/1931402/11/1924102/10/19 031 SODIUM 139 137 139 POTASSIUM 3.5 3.5 3.8 CHLORIDE 105 101 105 CO2 27 27 26 BUN 19 21 20 CREATININE 0.99 1.00 1.16 GLUCOSE 114* 113* 108* CALCIUM 8.7 9.0 9.0 Recent Labs Component Name 02/03/19 0106 ALBUMIN 3.1* ALT 21 AST 20 Recent Labs Component Name 02/12/1931402/11/19 0242 02/10/19 0318 WBC 9.3 10.3 10.1 HGB 7.5* 8.0* 7.9* HCT 26.0* 26.4* 26.1* PLTCOUNT 270 277 260 MEDICATIONS FOR CURRENT ENCOUNTER: SCHEDULED MEDICATIONS: 0.9% NaCl injection 10 mL, Intracatheter, q8h 0.9% NaCl injection 10-40 mL, Intracatheter, q8h albuterol (PROVENTIL;VENTOLIN) (2.5 MG/3ML) 0.083% nebulizer solution 2.5 mg, Inhalation, q6h ascorbic acid (VITAMIN C) tablet 500 mg, Oral, BID aspirin tablet 325 mg, Oral, BID budesonide-formoterol (SYMBICORT) 160-4.5 MCG/ACT inhaler 2 puff, Inhalation, BID clotrimazole (LOTRIMIN AF) 1 % cream, Topical, BID cyanocobalamin (VITAMIN B-12) tablet 500 mcg, Oral, QDAY lidocaine (XYLOCAINE MPF) 1 % injection, Intradermal, Once metoprolol tartrate (LOPRESSOR) tablet 25 mg, Oral, BID morphine CR 12hr (MS CONTIN) tablet 15 mg, Oral, q12h pantoprazole EC (PROTONIX) tablet 40 mg, Oral, QDAY polyethylene glycol 3350 (MIRALAX) packet 17 g, Oral, QDAY senna-docusate (SENOKOT-S) tablet 2 tablet, Oral, QDAY tamsulosin (FLOMAX) capsule 0.4 mg, Oral, AT BEDTIME vancomycin (VANCOCIN) IV dose per pharmacy, Does not apply, DIRECTED vancomycin HCl (VANCOCIN) 1,250 mg in 0.9% NaCl 250 mL IVPB, Intravenous, q24h warfarin (COUMADIN) dose per pharmacy MISC, Other, QDay 1700 zinc sulfate (ZINCATE) capsule 220 mg, Oral, QDAY ?? [COMPLETED] warfarin (COUMADIN) tablet 6 mg, Oral, once warfarin CONTINUOUS MEDICATIONS: ?? lactated ringers infusion, Intravenous, Continuous PRN MEDICATIONS: 0.9% NaCl injection 10-40 mL, Intracatheter, PRN acetaminophen (TYLENOL) tablet 650 mg, Oral, q6h PRN baclofen (LIORESAL) tablet 10 mg, Oral, BID PRN benzonatate (TESSALON) capsule 200 mg, Oral, TID PRN bisacodyl (DULCOLAX) suppository 10 mg, Rectal, QDAY PRN dextrose IV 12.5-25 g, Intravenous, PRN fentaNYL (PF) (SUBLIMAZE) injection 25 mcg, Intravenous, q4h PRN glucagon (GLUCAGEN) injection 1 mg, Intramuscular, PRN glucose (Diabetic Use) oral gel, Oral, PRN lactulose (CHRONULAC) solution 20 g, Oral, TID PRN ondansetron (ZOFRAN) injection 4 mg, Intravenous, q6h PRN oxyCODONE-acetaminophen (PERCOCET) 10-325 MG tablet 1 tablet, Oral, q4h PRN ?? trimethobenzamide (TIGAN) injection 200 mg, Intramuscular, q6h PRN A/P: Sepsis TME Constipation Infected right total hip arthroplasty status post wound VAC and lavage N/V Anemia chronic disease CKD Chronic AFib VALENTINA --continue antibiotics. Pharmacy dosing vancomycin.Vanc administered into wound at time of hip replacement. Delayed closure. Id following. Will need a PICC line and vancomycin for several weeks. Alsoto start rifampin. --continue present bowel regimen --avoid ach. Tigan prn nausea --transfuse <7 --avoid nephrotoxic meds --referrals to snf tomorrow. --cont bipap qhs --Coumadin for chronic AFib. Pharmacy dosing. Patient's Functional Baseline prior to admit: community dwelling Discharge Planning to Next Site of Care: Based on clinical conditions and medical necessities and after reviewing PT/OT evaluation, family support, patient wishes, and discussion with multidisciplinary care team (quality assurance project manager, OUTREACH ANALYST, CSN, Therapy services, Pharmacy, and recovery coordinator) the current recommendation for the most appropriate discharge destination at this time is: Inpt rehab vs Home Anticipated discharge date: Possible discharge tomorrow 02/13. Needs PICC line and intermediate/insurance authorization Disposition: Due to medical issues in the assessment and plan, continued hospitalization will be required. Blaire Meek MD Note is dictated utilizing voice recognition software. Unfortunately this leads to occasional typographical errors. I apologize in advance if the situation occurs. If questions occur please contact me for clarification. * Efrain Rojas RN - 02/12/2019 4:42 PM CDT Shift summary: patient up to recliner and BSC with walker, mod assist with transfers, scheduled pain med given, appetite good family at bedside, possible discharge tomorrow to SNF call light and phone within reach. * Fay Otero OUTREACH ANALYST - 02/12/2019 3:23 PM CDT Case reviewed with RN/CM during afternoon huddle. PER huddle pt spouse requesting SNF placement at [facility] or [facility]. Message left for admission coordinators for [facility] and [facility] re: bed availability. OUTREACH ANALYST will continue to follow and coordinate d/c. CHRIS Herrera 02/12/2019 3:26 PM [phone] * Maria Guadalupe Roberts RN - 02/12/2019 2:18 PM CDT Case Management Progress Note Anticipated level of care at discharge: Long Term - Skilled Facility Anticipated Discharge Date: Anticipated Discharge Date: 02/13/19 Transportation at Discharge: Family/Ambulance Comments: As documented by CM on 02/09, [facility] [facility] in [place], [place], or [facility] in [place]. Have asked Fay PEREZ to initiate referrals for tentative discharge tmrw. Attempting to reach spouse to verify this remains the discharge plan. Maria Guadalupe Roberts RN [facility] X [phone] * Cheryl Mccoy, PharmD - 02/12/2019 2:10 PM CDT Warfarin per Pharmacy Protocol S/O José Miguel Keys is on warfarin for A. Fib, h/o DVT. Adverse events related to anticoagulation: None noted Home warfarin regimen: New start. Current Medications 0.9% NaCl injection 10 mL, Intracatheter, q8h albuterol (PROVENTIL;VENTOLIN) (2.5 MG/3ML) 0.083% nebulizer solution 2.5 mg, Inhalation, q6h ascorbic acid (VITAMIN C) tablet 500 mg, Oral, BID aspirin tablet 325 mg, Oral, BID budesonide-formoterol (SYMBICORT) 160-4.5 MCG/ACT inhaler 2 puff, Inhalation, BID clotrimazole (LOTRIMIN AF) 1 % cream, Topical, BID cyanocobalamin (VITAMIN B-12) tablet 500 mcg, Oral, QDAY metoprolol tartrate (LOPRESSOR) tablet 25 mg, Oral, BID morphine CR 12hr (MS CONTIN) tablet 15 mg, Oral, q12h pantoprazole EC (PROTONIX) tablet 40 mg, Oral, QDAY polyethylene glycol 3350 (MIRALAX) packet 17 g, Oral, QDAY senna-docusate (SENOKOT-S) tablet 2 tablet, Oral, QDAY tamsulosin (FLOMAX) capsule 0.4 mg, Oral, AT BEDTIME vancomycin (VANCOCIN) IV dose per pharmacy, Does not apply, DIRECTED vancomycin HCl (VANCOCIN) 1,250 mg in 0.9% NaCl 250 mL IVPB, Intravenous, q24h warfarin (COUMADIN) dose per pharmacy MISC, Other, QDay 1700 zinc sulfate (ZINCATE) capsule 220 mg, Oral, QDAY [COMPLETED] warfarin (COUMADIN) tablet 5 mg, Oral, once warfarin Diet Order DIETARY NUTRITION SUPPLEMENTS DIETARY NUTRITION SUPPLEMENTS DIET REGULAR Labs Recent Labs Component Name 02/12/19 0315 02/11/19 1434 02/04/19 0737 PT 11.0 11.0 11.1 INR 1.0 1.0 1.0 Recent Labs Component Name 02/04/19 0737 09/10/17 0549 09/07/17 0428 PTT 26.4 29.7 32.8 Recent Labs Component Name 02/12/19 0315 02/11/19 0242 02/10/19 0318 HGB 7.5* 8.0* 7.9* HCT 26.0* 26.4* 26.1* PLTCOUNT 270 277 260 Recent Labs Component Name 02/03/19 0106 ALBUMIN 3.1* ALT 21 AST 20 TBIL 1.0 TPROT 7.0 No results for input(s): DDIMERMGL in the last 45295 hours. Warfarin Dose History Date INR Dose (mg) 02/11 1.0 5 mg 02/12 INR = 1.0 Goal INR: 2.0 - 2.5. Assessment Today's INR is Subtherapeutic as expected following one dose of warfarin. Patient previously on rivaroxaban then transitioned to apixaban prior to admission. Warfarin is new this admission. Baseline INR is normal however records report that imaging shows 'cirrhosis'. Thus, will use caution with warf jonh dosing as patient may have increased sensitivity. Plan 1. Warfarin dose: 6 mg po today 2. Daily INR Cheryl Mccoy PharmD 02/12/2019 2:11 PM * Fay Otero, OUTREACH ANALYST - 02/12/2019 12:24 PM CDT Case reviewed during huddle and MDR. RN/CM to f/u with pt spouse re:: SNF placement. OUTREACH ANALYST will continue to follow and coordinate d/c. CHRIS Herrera 02/12/2019 12:25 PM [phone] * Christina Hamilton, PT - 02/12/2019 11:14 AM CDT Problem: Therapy - Total Hip Arthroplasty Goal: STG - Patient will ambulate Description 50 ft with ww with R LE WBAT with min a Outcome: Ongoing Goal: STG - Patient will negotiate ___ step(s). Description 5 steps x 2 with rail(s) with min a Outcome: Ongoing Goal: STG - Patient is independent with home exercise program. Outcome: Ongoing Goal: TH STG - Able to move from supine to sitting. Description And perform all functional bed mobility with SBA Outcome: Ongoing Goal: TH STG - Able to transfer sit to stand. Description And perform all functional transfers with min a Outcome: Ongoing * Christina Hamilton, PT - 02/12/2019 11:10 AM CDT Patient OK to be seen for treatment per nursing. See Filed Flowsheet under Summary for details. SUBJECTIVE: Patient states he is sore, but agreeable to ambulate. Pain Rating Score #: 6 Pain Location : Hip Pain Orientation: Right OBJECTIVE: Cognition: Orientation Level: Oriented X4 Level of Consciousness-Adult: Alert Cognition: Follows Commands-Consistent;Attention/concentration-normal for age;Processing-Appropriate Mobility: Supine to Sit: Minimal Assistance;Stand By Assist Sit to Stand: Minimal Assistance;Moderate Assistance Stand to Sit: Minimal Assistance;Requires Verbal Cues for Technique Toilet Transfers: Moderate Assistance;X 2(several steps with wwr to L) Distance Ambulated: 45 FEET(x2) Ambulation: Assistive Device: Crutches-Standard;Walker-2 Wheeled Ambulation: Level of Assistance: Minimum Assistance(with chair follow) Ambulation: Gait Deviations: Antalgic;Maira - Decreased;Step Length - Decreased Weight Bearing Status-RLE: Weight Bearing as Tolerated Posture: Sitting Posture: Forward Flexed Standing Posture: Forward Flexion Balance: Balance Scales/Tests Used: Standing: Static/Dynamic Standing - Static: Poor;With Both Upper Extremity's Support Standing - Dynamic: Poor;With Both Upper Extremity's Support Activity Tolerance and Oxygen Requirements: Activity Tolerance: Requires seated rest breaks O2 L/M: 2 L/Minute(Pt requested oxy -nursing notified ) O2 DEVICE: Room Air - None Vital Signs: SpO2: 99 % Pulse: 95 Resp: 16 BP: 114/51 Treatment this date: Completed hip exercises, ambulated in hallway with walker and chair follow. Seated rest break between walks. ASSESSMENT/RECOMMENDATIONS: Tolerated session well. Would recommend continued PT at SNF prior to return home. Patient will have 5-6 SARIKA to get to main level. If this is the last Physical Therapy visit, this serves as the discharge summary. All vitals stablethroughout visit; All lines, monitors, IV's, equipment in place and intact pre and post visit. 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 ?? Other Antibiotics: none Vitals: Height: 5' 11 (180.3 cm) (02/02/195) Weight: 101 kg (222 lb 9.6 oz) (02/12/19 0600) Temp (24hrs) Max:98.4 ??F (36.9 ??C) Current Labs: Recent Labs Component Name 02/12/19 03102/11/19 0242 02/10/19 031 BUN 19 21 20 CREATININE 0.99 1.00 1.16 WBC 9.3 10.3 10.1 Creatinine Clearance: Estimated Creatinine Clearance: 83.2 mL/min (based on SCr of 0.99 mg/dL). Vancomycin goal:Goal Tr 15-20 mcg/ml (Loading Dose) Vancomycin trough: 22.6 mcg/ml (02/12 @ 0922) A/P Vancomycin level slightly elevated from desired therapeutic range. Will hold regimen for ~4 hours and reduce to Vancomycin 1250mg q24hr. Will obtain a vancomycin level on 02/15 at 1300. Will continue to monitor and adjust as appropriate. Brenden Ellis, PharmNia 02/12/2019 10:15 AM * Carlita Menendez, ASHWINI/LD - 02/12/2019 10:13 AM CDT Clinical Nutrition Patient was given education on importance of consuming consistent amount of Vit K in their diet. Written information was given using [facility] Vit K & Anticoagulant Therapy handout. Foods high in Vit Kwere reviewed and appropriate portion sizes were discussed. Pt was encouraged to be cautious when drinking green tea and cranberry juice. It was suggested that pt avoid EtoH or Herbal supplements which can affect INR. Pt was encouraged to check label of MVI for Vit E and Vit K content. Good compliance is expected. Pt reported appetite gradually returning. Education provided on the benefit of Oral Nutrition Supplements (ONS) to aid with meeting calorie and protein needs and maintaining weight when po intake is poor. Supplements in place: Ensure HP BID, Magic Cup daily and High Protein Gelatin daily. Ensure High Protein for Muscle Health provides 160 calories ,16 grams protein and 19 grams of carb per 8 oz serving. Magic Cup Frozen Dessert (dysphagia supplement) provides 290 calories, 9 grams of protein and 38 grams of carb per serving. Prosource Gelatein (High protein gelatin) provides 150 calories, 20 grams of protein, & 21 g Carb per 4 oz. serving. Pt states does not like Magic Cup and no longer wishes to receive it. Will follow per protocol Carlita Menendez RD/SALVADOR 02/12/2019 10:14 AM * Leah Franklin RCP - 02/12/2019 8:21 AM CDT Mr Keys received his 0800, 1400 treatments; he remains on room air; home CPAP on standby; will continue to monitor. * Jesusita Bennett, PharmD - 02/11/2019 3:21 PM CDT Warfarin per Pharmacy Protocol S/O José Miguel Keys is on warfarin for A. Fib. Adverse events related to anticoagulation: None Home warfarin regimen: new New start. Current Medications albuterol (PROVENTIL;VENTOLIN) (2.5 MG/3ML) 0.083% nebulizer solution 2.5 mg, Inhalation, q6h ascorbic acid (VITAMIN C) tablet 500 mg, Oral, BID aspirin tablet 325 mg, Oral, BID budesonide-formoterol (SYMBICORT) 160-4.5 MCG/ACT inhaler 2 puff, Inhalation, BID cyanocobalamin (VITAMIN B-12) tablet 500 mcg, Oral, QDAY metoprolol tartrate (LOPRESSOR) tablet 25 mg, Oral, BID morphine CR 12hr (MS CONTIN) tablet 15 mg, Oral, q12h pantoprazole EC (PROTONIX) tablet 40 mg, Oral, QDAY polyethylene glycol 3350 (MIRALAX) packet 17 g, Oral, QDAY senna-docusate (SENOKOT-S) tablet 2 tablet, Oral, QDAY tamsulosin (FLOMAX) capsule 0.4 mg, Oral, AT BEDTIME vancomycin (VANCOCIN) IV dose per pharmacy, Does not apply, DIRECTED vancomycin HCl (VANCOCIN) 1,500 mg in 0.9% NaCl 500 mL IVPB, Intravenous, q24h warfarin (COUMADIN) dose per pharmacy MISC, Other, QDay 1700 warfarin (COUMADIN) tablet 5 mg, Oral, once warfarin zinc sulfate (ZINCATE) capsule 220 mg, Oral, QDAY Diet Order DIETARY NUTRITION SUPPLEMENTS DIETARY NUTRITION SUPPLEMENTS DIETARY NUTRITION SUPPLEMENTS DIET REGULAR Labs Recent Labs Component Name 02/11/19 1434 02/04/19 0737 02/03/19 0106 PT 11.0 11.1 11.3 INR 1.0 1.0 1.1 Recent Labs Component Name 02/04/19 0737 09/10/17 0549 09/07/17 0428 PTT 26.4 29.7 32.8 Recent Labs Component Name 02/11/19 0242 02/10/19 0318 02/09/19 0230 HGB 8.0* 7.9* 8.3* HCT 26.4* 26.1* 27.5* PLTCOUNT 277 260 282 Recent Labs Component Name 02/03/19 0106 ALBUMIN 3.1* ALT 21 AST 20 TBIL 1.0 TPROT 7.0 No results for input(s): DDIMERMGL in the last 67760 hours. Warfarin Dose History Date INR Dose (mg) Comments 02/11 1.0 5mg subtherapeutic Assessment Goal INR: 2.0 - 2.5. Today's INR is Subtherapeutic Risk factors for bleeding: none. Pertinent home medications: none Pertinent medications during hospitalization: none Plan 1. Warfarin dose: 5mg X 1 2. Daily INR 3. Bridging therapy with N/A Jesusita Bennett, EliazarD 02/11/2019 3:22 PM * Sumaya, Alberto Dhillon MD - 02/11/2019 3:13 PM CDT Brief Orthopedic Surgery Plan of Care Note 3:13 PM Patient seen and examined this afternoon on rounds. Doing well, up in chair. States his hip feel good. WAs able to walk 20 feet with PT today. Dressing is intact and with scant shadowing- unchanged from yesterday. Plan for DC to SNF tomorrow or Tuesday. Please give the following instructions to the patient upon discharge/transfer: ?? Hip Precautions as follows: ? Posterior hip precautions- no flexion past 90 degrees, no adduction past midline, no internal rotation ?? Thigh high JORDAN hose when up during the day. May remove at night while sleeping ?? Patient may discontinue compression stocking after two weeks. ?? Ankle flexion exercises every hour during the day to prevent swelling and deep vein thrombosis prevention. ?? Continue EC ASA 325 mg po bid for one month for DVT prophylaxis. ?? Keep wound clean and dry. Change [...] tub soaks. No scrubbing around incision. ?? Diogenes to be removed at [address] Alexander ?? Call [phone] to schedule the first follow-up appointment with Dr. Alexander in 3 weeks ?? Any questions or problems please call the office , or Alberto Shell MD 02/11/2019 * Kristie Martinez, PT - 02/11/2019 1:53 PM CDT Physical Therapy Treatment Summary Chart review completed. Nursing consented for PT. Explained purpose of PT and patient consented to participate in therapy. SUBJECTIVE: Patient is alert and received lying supine in bed and agreeable to participate in PT after motivation and education regarding movement and its correlation to bowel movements. Patient's Goal for the Day: Use the restroom Pain Assessment: Pain Rating Score #: 6 Pain Location : Hip Pain Orientation: Right OBJECTIVE: Precautions: WBAT (R) LE Bed Mobility: Supine to Sit: Moderate Assistance;Requires Verbal Cues for Technique;Requires Physical Cues for Technique Sit to Supine: Moderate Assistance;Requires Verbal Cues for Technique;Requires Physical Cues for Technique Transfers: Sit to Stand: Moderate Assistance;Requires Verbal Cues for Technique;Requires Physical Cues for Technique Stand to Sit: Moderate Assistance;Requires Verbal Cues for Technique;Requires Physical Cues for Technique Mobility: Distance Ambulated: 20 FEET(x20) Ambulation: Assistive Device: Gait Belt;Walker-2 Wheeled Ambulation: Level of Assistance: Minimum Assistance;X 2(chair follow) Ambulation: Gait Deviations: Antalgic;Base of Support - Increased;Maira - Decreased;Hip/knee flexion during swing phase-- decreased;Increased Trunk Flexion;Push Off - Decreased;Step Length - Decreased;Stance Time - Decreased Weight Bearing Status-RLE: Weight Bearing as Tolerated Activity Tolerance and O2 Requirements: Activity Tolerance: Requires seated rest breaks O2 DEVICE: Room Air - None ASSESSMENT: Patient was received lying supine in bed and agreeable to participate in PT today. Patient required mod A for bed mobility and transfers this date secondary to weakness. Patient required min A with close chair follow for ambulation. Patient ambulated 20 feet x 2 with 2WW and gait belt this date. Call light and phone in reach. All [...] PT during acute care stay and discharge to inpatient rehab when medically appropriate. PT Discharge Recommendations: Inpatient Rehab If this is the last Physical Therapy visit, this note serves as the discharge summary. Kristie Martinez, PT x [phone] * Constantino Gilliam, PharmD - 02/11/2019 1:44 PM CDT Vancomycin Per Pharmacy (Day 9) 68 year old male receiving vancomycin 1500 mg IV every 24 hours for the management of sepsis 2/2 MRSA infected R total hip arthroplasty s/p wound vac and lavag. Current Labs: Recent Labs Component Name 02/11/19 0242 02/10/19 0318 02/09/19 0230 BUN 21 20 20 CREATININE 1.00 1.16 1.23* WBC 10.3 10.1 11.7* Renal: Est CrCl: 80.6 ml/min based on SCr of 1 Vancomycin Goal: 15-20 mcg/ml A/P: Pt's renal function has improved since the last level was drawn. As discharge is expected soon, will check a trough on 02/12. Will continue to adjust and monitor. Constantino Gilliam, PharmNia 02/11/2019 1:40 PM * Kristie Martinez, PT - 02/11/2019 11:01 AM CDT Physical Therapy Treatment Summary Chart review completed. Nursing consented for PT. Explained purpose of PT and patient consented to participate in therapy. SUBJECTIVE: Patient was received lying supine in bed and agreeable to participate in PT. Patient's Goal for the Day: Walk more Pain Assessment: Pain Rating Score #: 6 Pain Location : Hip Pain Orientation: Right OBJECTIVE: Precautions: Posterior hip precautions (R) LE Contact isolation Falls Aspiration Bed Mobility: Supine to Sit: Moderate Assistance((R) LE ) Sit to Supine: Moderate Assistance((R) LE ) Transfers: Sit to Stand: Moderate Assistance;Requires Verbal Cues for Safety;Requires Physical Cues for Safety;Requires Verbal Cues for Technique;Requires Physical Cues for Technique Stand to Sit: Moderate Assistance;Requires Verbal Cues for Safety;Requires Physical Cues for Safety;Requires Verbal Cues for Technique;Requires Physical Cues for Technique Mobility: Distance Ambulated: 8 FEET(x2) Ambulation: Assistive Device: Gait Belt;Walker-2 Wheeled Ambulation: Level of Assistance: Minimum Assistance;Requires Verbal Cues for Safety;Requires VerbalCues for Technique;Requires Physical Cues for Safety;Requires Physical Cues for Technique Ambulation: Gait Deviations: Antalgic;Base of Support - Increased;Maira - Decreased;Heel Strike -Decreased;Increased Trunk Flexion;Push Off - Decreased;Stance Time - Decreased;Step Length - Decreased Weight Bearing Status-RLE: Weight Bearing as Tolerated Activity Tolerance and O2 Requirements: Activity Tolerance: Requires seated rest breaks O2 DEVICE: Room Air - None ASSESSMENT: Patient was received lying supine in bed and agreeable to participate in PT this date. Patient requires mod A for bed mobility for assistance with (R) LE. Patient requires mod A for transfers and min A for ambulation this date. Patient was able to verbalize and demonstrate good understanding of posterior hip precautions. Patient ambulated 8 feet x 2 with 2WW and gait belt this date. Patient reported he felt weak and tired after this ambulation, as well as slightly short of breath, which subsided with seated rest break. Call light and phone in reach with [...] for PT goals. RECOMMENDATIONS/PLAN: Continued skilled PT BID during acute care stay and discharge to inpatient rehab when medically appropriate. PT Discharge Recommendations: Inpatient Rehab If this is the last Physical Therapy visit, this note serves as the discharge summary. Kristie Martinez, PT x [phone] * Blaire Meek MD - 02/11/2019 10:06 AM CDT 02/11/2019 10:09 AM Admitted: 02/02/2019 8:57 PM HD: 9 CC: Right hip pain Summary:??68 year old??white male with hx CAD, atrial fibrillation, prior DVT, COPD, cirrhosis, OSAwho presents with 1 week of right hip pain with associated swelling and redness of the region.He went to [facility] and workup there including CT of the right hip revealed suspected abscess for which he was transferred here for further evaluation by [facility] Orthopedics. Has history of MRSA bacteremia and epidural abscess as well. He is community dwelling living with his . Current symptoms: BM 02/08. +flatus. Pain is better. PT/OT notes noted(max assist, 2 people to ambulate, unsafe for home). Nauseated still but better. No f/c overnight. Fluid neutral -ve(-201) PE: Filed Vitals: 02/11/19 0453 02/11/19 0748 02/11/19 0750 02/11/19 0830 BP: 127/68 126/65 Pulse: 99 80 88 Resp: 16 18 Temp: 97.4 ??F (36.3 ??C) 97.7 ??F (36.5 ??C) TempSrc: Oral SpO2: 100% 96% 96% 94% Weight: Height: Gen:ASA, mild distress. Does not appear in pain. A + O x3. HEENT: NCAT CV: RRR, No m/g/r, no ectopy Carol: No adventitial sounds or wheezes, no cough noted Abd: benign Neuro: nonfocal; proprioception, gait not tested. Reflexes intact Psych: approp. No Si/Hi Skin: wound c/d/i. Some blood on dressing, will change postop day 7. MSK: DELICIA Bilat. Nl personal insurance advisor appreciated. No cce, no erythema of surgical site Recent Labs Component Name 02/11/19 0242 02/10/198 02/09/19 0230 SODIUM 137 139 137 POTASSIUM 3.5 3.8 4.3 CHLORIDE 101 105 102 CO2 27 26 25 BUN 21 20 20 CREATININE 1.00 1.16 1.23* GLUCOSE 113* 108* 119* CALCIUM 9.0 9.0 8.9 Recent Labs Component Name 02/03/19 0106 ALBUMIN 3.1* ALT 21 AST 20 Recent Labs Component Name 02/11/19 0242 02/10/19 0318 02/09/19 0230 WBC 10.3 10.1 11.7* HGB 8.0* 7.9* 8.3* HCT 26.4* 26.1* 27.5* PLTCOUNT 277 260 282 MEDICATIONS FOR CURRENT ENCOUNTER: SCHEDULED MEDICATIONS: albuterol (PROVENTIL;VENTOLIN) (2.5 MG/3ML) 0.083% nebulizer solution 2.5 mg, Inhalation, q6h ascorbic acid (VITAMIN C) tablet 500 mg, Oral, BID aspirin tablet 325 mg, Oral, BID budesonide-formoterol (SYMBICORT) 160-4.5 MCG/ACT inhaler 2 puff, Inhalation, BID cyanocobalamin (VITAMIN B-12) tablet 500 mcg, Oral, QDAY metoprolol tartrate (LOPRESSOR) tablet 25 mg, Oral, BID morphine CR 12hr (MS CONTIN) tablet 15 mg, Oral, q12h pantoprazole EC (PROTONIX) tablet 40 mg, Oral, QDAY polyethylene glycol 3350 (MIRALAX) packet 17 g, Oral, QDAY senna-docusate (SENOKOT-S) tablet 2 tablet, Oral, QDAY tamsulosin (FLOMAX) capsule 0.4 mg, Oral, AT BEDTIME vancomycin (VANCOCIN) IV dose per pharmacy, Does not apply, DIRECTED vancomycin HCl (VANCOCIN) 1,500 mg in 0.9% NaCl 500 mL IVPB, Intravenous, q24h ?? zinc sulfate (ZINCATE) capsule 220 mg, Oral, QDAY CONTINUOUS MEDICATIONS: ?? lactated ringers infusion, Intravenous, Continuous PRN MEDICATIONS: acetaminophen (TYLENOL) tablet 650 mg, Oral, q6h PRN baclofen (LIORESAL) tablet 10 mg, Oral, BID PRN benzonatate (TESSALON) capsule 200 mg, Oral, TID PRN bisacodyl (DULCOLAX) suppository 10 mg, Rectal, QDAY PRN dextrose IV 12.5-25 g, Intravenous, PRN fentaNYL (PF) (SUBLIMAZE) injection 25 mcg, Intravenous, q4h PRN glucagon (GLUCAGEN) injection 1 mg, Intramuscular, PRN glucose (Diabetic Use) oral gel, Oral, PRN lactulose (CHRONULAC) solution 20 g, Oral, TID PRN ondansetron (ZOFRAN) injection 4 mg, Intravenous, q6h PRN ?? oxyCODONE-acetaminophen (PERCOCET) 10-325 MG tablet 1 tablet, Oral, q4h PRN A/P: Sepsis TME Constipation Infected right total hip arthroplasty status post wound VAC and lavage N/V Anemia chronic disease CKD Chronic AFib VALENTINA --continue antibiotics. Pharmacy dosing vancomycin.Vanc administered into wound at time of hip replacement. Delayed closure --more aggressive bowel regimen, lactulose/linzess/colace --avoid ach. Tigan prn --delirium precautions --transfuse <7 --avoid nephrotoxic meds --Will refer to inpt rehab. D/w unsafe home situation --cont bipap qhs Patient's Functional Baseline prior to admit: community dwelling Discharge Planning to Next Site of Care: Based on clinical conditions and medical necessities and after reviewing PT/OT evaluation, family support, patient wishes, and discussion with multidisciplinary care team (quality assurance project manager, OUTREACH ANALYST, CSN, Therapy services, Pharmacy, and recovery coordinator) the current recommendation for the most appropriate discharge destination at this time is: Inpt rehab vs Home Anticipated discharge date: 02/12-02/13 Disposition: Due to medical issues in the assessment and plan, continued hospitalization will be required. Blaire Meek MD Note is dictated utilizing voice recognition software. Unfortunately this leads to occasional typographical errors. I apologize in advance if the situation occurs. If questions occur please contact me for clarification. * Robin Mata RCP - 02/11/2019 7:53 AM CDT Mr. Keys will continue on scheduled tx as ordered. He is currently on RA and saturations are at 96. RT will continue to monitor patient. Robin Mata, Respiratory Care Practitioner 02/11/2019 7:54 AM * Dalia Blandon, RN - 02/11/2019 5:06 AM CDT Shift Summary: Pt VSS, A&Ox4, calm and cooperative. Received PRN percocet for pain in hip. IVF continue without issue. BiPap at night. Resting comfortably in bed. Pt verbalizes needs, safe set up has been verified. Problem: Isolation Goal: Prevent Transmission of Infection Flowsheets (Taken 02/11/2019 0100) Isolation type: Contact Precautions Isolation Precautions: Personal Protective Equipment Reason for isolation: Infection in Patient Header Note: Isolation precautions still remain. Pt, visitors and staff adhere to PPE protocol. * Karina Davies, PT - 02/10/2019 3:47 PM CDT Physical Therapy Treatment Summary Chart review completed. Nursing consented for PT. Explained purpose of PT and patient consented to participate in therapy. SUBJECTIVE: I'm wear oxygen as needed at home 1or 2 L Pain Assessment: None stated OBJECTIVE: Orientation Level: Oriented to Person;Oriented to Place;Oriented to Situation Precautions: PHP, WBAT, MRSA, Fall Bed Mobility: Rolling: Moderate Assistance to Left Supine to Sit: Moderate Assistance Transfers: Sit to Stand: Moderate Assistance Stand to Sit: Moderate Assistance Mobility: Distance Ambulated: 10 FEET(close chair follow ) Ambulation: Assistive Device: Gait Belt;Walker-2 Wheeled Ambulation: Level of Assistance: Moderate Assistance;X 2(1 physical assist, 1 close chair follow) Ambulation: Gait Deviations: Antalgic;Base of Support - Decreased;Heel Strike - Decreased;Hip/knee flexion during swing phase-- decreased;Increased Weight Bearing through Upper Extremity Balance: Sitting static good - UE support Standing static fair Exercise: See Flow sheet Activity Tolerance: SpO2: 100 % RBC 3.80 - 5.40 x10E12/L 2.85Low Hemoglobin 12.0 - 17.6 gm/dL 7.9Low Hematocrit 35.2 - 51.7 % 26.1Low ASSESSMENT: Pt is 68 y/o male s/p R ARNALDO, PHP, WBAT, MRSA, fall risk. Pt received nebulizer treatment prior to PT. After ambulation, pt had several minutes of productive cough, with secretions. Secretions were thick, pt had difficulty time with expelling them. After episode stopped, pt requested supplemental oxygen, indicating he uses it at home as needed. O2 sat 100% Nursing notified and placed pt on oxygen. H/H, RBC listed above. Pt was able to finish session with seated there ex. Pt does get anxious during transfers/ambulation. and phone in reach with chair alarm activated. All lines, monitors, IV's, equipment in place and intact pre and post visit. RN, notified of patient's performance/location end of session. Pt educated in PT plan of care, fall precautions, and benefits of OOB activity Please refer to the Filed Flowsheet PT Treatment for further details. RECOMMENDATIONS/PLAN: BID while in acute care PT Discharge Recommendations: Inpatient Rehab Karina Davies, PT x [phone] * Karina Davies, PT - 02/10/2019 3:34 PM CDT Physical Therapy Treatment Summary Chart review completed. Nursing consented for PT. Explained purpose of PT and patient consented to participate in therapy. SUBJECTIVE: I'm lightheaded Patient's Goal for the Day: Walk, no falls Pain Assessment: Pain level - 6 or 7 post treatment OBJECTIVE: Orientation Level: Oriented to Person;Oriented to Place;Oriented to Situation Precautions: PHP, MRSA Bed Mobility: Rolling: Moderate Assistance to Left Supine to Sit: Moderate Assistance Transfers: Sit to Stand: Moderate Assistance;X 2 Stand to Sit: Moderate Assistance;X 2 Mobility: Distance Ambulated: 5 FEET Ambulation: Assistive Device: Gait Belt;Walker-2 Wheeled Ambulation: Level of Assistance: Moderate Assistance;X 2;Requires Verbal Cues for Technique Ambulation: Gait Deviations: Antalgic;Backward lean;Heel Strike - Decreased;Increased Trunk Flexion;Increased Weight Bearing through Upper Extremity;Push Off - Decreased;Step Length - Decreased Balance: Sitting static good- Standing static fair Exercise: See flow sheet Activity Tolerance: required seated rest breaks ASSESSMENT: Pt is 68 y/o male s/p R ARNALDO, PHP, WBT, MRSA. Pt reported being lightheaded supine to sit transfer. Sat at EOB x 3 minutes and perform LE exercise - feeling subsided. Pt transfer with lessassistance Mod x 2 this date. Standing posture flexed, with strong personal insurance advisor on the walker. Pt requiredv/c for feet placement. Pt transfer to the chair and rested a few minutes. Then ambulated about 5 feet with v/c for steps, wt shifting, technique for advancing the walker. Pt perform additional LE exercises. Pt required mod A to verbalized PHP. Ice therapy applied after treatment. Call light and phone in reach with Chair alarm activated. All lines, monitors, IV's, equipment in place and intact pre and post visit. RN, notified of patient's performance/location end of session. Peducated in PT plan of care, fall precautions, and benefits of OOB activity Please refer to the Filed Flowsheet PT Treatment for further details. RECOMMENDATIONS/PLAN: Continue PT BID while in acute care. PT Discharge Recommendations: Inpatient Rehab Karina Davies, PT x [phone] * Eula Verma RCP - 02/10/2019 3:02 PM CDT Problem: Impaired Gas Exchange Goal: Resp rate/effort will be within specified limits 02/10/2019 1504 by Eula Verma, Respiratory Care Practitioner Outcome: Ongoing Note: José Miguel continues on scheduled nebulizer tx. Lungs sound diminished this shift. Will continue to monitor and wean as able * Alberto Shell MD - 02/10/2019 11:30 AM CDT [facility] Orthopedic Surgery Daily Progress Note José Miguel Keys, 68 year old, male : 1950 CSN: [id number] Primary Care Physician: Briana Medeiros MD - Admission Date/Time: 02/02/2019 8:57 PM -Today's Date/Time: 02/10/2019 11:39 AM Subjective Patient seen and examined this AM on rounds. No new problems or issues overnight. Pain controlled this morning. Denies any new numbness/paresthesias. Was up to chair for several hours yesterday Vitals Temp (24hrs), Av.7 ??F (36.5 ??C), Min:97.4 ??F (36.3 ??C), Max:97.9 ??F (36.6 ??C) BP 115/65 Pulse 98 Temp 97.8 ??F (36.6 ??C) Resp 16 Ht 5' 11 (1.803 m) Wt 208 lb (94.3 kg) SpO2 96% BMI 29.01 kg/m2 Labs Recent Labs Component Name 02/10/19 0318 02/09/19 0230 02/08/19 0256 WBC 10.1 11.7* 8.9 HGB 7.9* 8.3* 8.9* HCT 26.1* 27.5* 30.8* PLTCOUNT 260 282 241 Recent Labs Component Name 02/04/19 0737 02/03/19 0106 10/10/18 1515 INR 1.0 1.1 1.1 Cultures Initial OR wound cultures with MRSA Physical Exam General appearance: Awake, cooperative, no acute distress, RLE -Inspection: dressings intact with scant shadowing - unchanged from yesterday -ROM: immobilized in ABduction pillow -Motor: Able to plantarflex ankle, able to dorsiflex ankle, able to plantarflex great toe, able to dorsiflex great toe -Sensation: SILT to dorsal/plantar foot -Vascular: 2+ DP pulse with brisk capillary refill, toes warm and well perfused Assessment/Plan Active Problems: Infection of right prosthetic hip joint Patient is a 68 year old, male with infected right total hip arthroplasty from 2005 -s/p right hip I&D and wound vac application on??02/04/2019??with Dr. Alexander - s/p: Right hip I&D with Femoral head and poly exchange with delayed primary closure 02/08/[address] Alexander 1. Activity/Weight-bearing status: WBAT RLE with posterior hip precautions 2. Current Dispo: pending PT, likely SNF 3. Anticoagulation Status: ASA 325 BID 4. Antibiotics: Vancomycin 5. Wound care: Continue current dressings until POD#7 6. Diet: regular 7. PT/OT 8. Pain Control 9. Orthopedics will continue to follow. Please page with any questions or concerns Please give the following instructions to the patient upon discharge/transfer: ?? Hip Precautions as follows: ?? Posterior hip precautions- no flexion past 90 degrees, no adduction past midline, no internal rotation ?? Thigh high JORDAN hose when up during the day. May remove at night while sleeping ?? Patient may discontinue compression stocking after two weeks. ?? Ankle flexion exercises every hour during the day to prevent swelling and deep vein thrombosis prevention. ?? Continue EC ASA 325 mg po bid for one month for DVT prophylaxis. ?? Keep wound clean and dry. Change [...] tub soaks. No scrubbing around incision. ?? Diogenes to be removed at [address] Alexander ?? Call [phone] to schedule the first follow-up appointment with Dr. Alexander in 3 weeks ?? Any questions or problems please call the office , or Alberto Shell MD 02/10/2019 11:39 AM * Blaire Meek MD - 02/10/2019 8:30 AM CDT 02/10/2019 8:30 AM Admitted: 02/02/2019 8:57 PM HD: 8 CC: Right hip pain Summary:??68 year old??white male with hx CAD, atrial fibrillation, prior DVT, COPD, cirrhosis, OSAwho presents with 1 week of right hip pain with associated swelling and redness of the region.He went to [facility] and workup there including CT of the right hip revealed suspected abscess for which he was transferred here for further evaluation by [facility] Orthopedics. Has history of MRSA bacteremia and epidural abscess as well. He is community dwelling living with his . Current symptoms: BM yesterday, incontinence noted. Pain is better. Confusion is better,answers faster as well. Nauseated still. No f/c overnight. Significantly fluid positive post op.([phone]). PE: Filed Vitals: 02/09/19 1635 02/09/19 2152 02/09/19 2359 02/10/19 0508 BP: 121/62 105/58 120/70 109/56 Pulse: 99 77 96 83 Resp: 18 18 18 18 Temp: 97.9 ??F (36.6 ??C) 97.7 ??F (36.5 ??C) 97.7 ??F (36.5 ??C) 97.4 ??F (36.3 ??C) TempSrc: Oral SpO2: 98% 94% 98% 99% Weight: Height: Gen:ASA, mild distress. Does not appear in pain. A + O x3. HEENT: NCAT CV: RRR, No m/g/r, no ectopy Carol: No adventitial sounds or wheezes, no cough noted Abd: benign Neuro: nonfocal; proprioception, gait not tested. Reflexes intact Psych: approp. No Si/Hi Skin: wound c/d/i. MSK: DELICIA Macias. Nl personal insurance advisor appreciated. No cce, no erythema of surgical site Recent Labs Component Name 02/10/1931702/09/19 0230 02/08/19 0256 SODIUM 139 137 137 POTASSIUM 3.8 4.3 3.8 CHLORIDE 105 102 103 CO2 26 25 27 BUN 20 20 20 CREATININE 1.16 1.23* 1.17 GLUCOSE 108* 119* 90 CALCIUM 9.0 8.9 9.3 Recent Labs Component Name 02/03/19 0106 ALBUMIN 3.1* ALT 21 AST 20 Recent Labs Component Name 02/10/1931702/09/19 0230 02/08/19 0256 WBC 10.1 11.7* 8.9 HGB 7.9* 8.3* 8.9* HCT 26.1* 27.5* 30.8* PLTCOUNT 260 282 241 MEDICATIONS FOR CURRENT ENCOUNTER: SCHEDULED MEDICATIONS: albuterol (PROVENTIL;VENTOLIN) (2.5 MG/3ML) 0.083% nebulizer solution 2.5 mg, Inhalation, q6h ascorbic acid (VITAMIN C) tablet 500 mg, Oral, BID aspirin tablet 325 mg, Oral, BID budesonide-formoterol (SYMBICORT) 160-4.5 MCG/ACT inhaler 2 puff, Inhalation, BID cyanocobalamin (VITAMIN B-12) tablet 500 mcg, Oral, QDAY metoprolol tartrate (LOPRESSOR) tablet 25 mg, Oral, BID morphine CR 12hr (MS CONTIN) tablet 15 mg, Oral, q12h pantoprazole EC (PROTONIX) tablet 40 mg, Oral, QDAY polyethylene glycol 3350 (MIRALAX) packet 17 g, Oral, QDAY senna-docusate (SENOKOT-S) tablet 2 tablet, Oral, QDAY tamsulosin (FLOMAX) capsule 0.4 mg, Oral, AT BEDTIME vancomycin (VANCOCIN) IV dose per pharmacy, Does not apply, DIRECTED vancomycin HCl (VANCOCIN) 1,500 mg in 0.9% NaCl 500 mL IVPB, Intravenous, q24h zinc sulfate (ZINCATE) capsule 220 mg, Oral, QDAY ?? [COMPLETED] ceFAZolin (ANCEF) 2,000 mg in 50 ml IVPB, Intravenous, q8h CONTINUOUS MEDICATIONS: lactated ringers infusion, Intravenous, Continuous ?? lactated ringers infusion, Intravenous, Continuous PRN MEDICATIONS: acetaminophen (TYLENOL) tablet 650 mg, Oral, q6h PRN baclofen (LIORESAL) tablet 10 mg, Oral, BID PRN benzonatate (TESSALON) capsule 200 mg, Oral, TID PRN bisacodyl (DULCOLAX) suppository 10 mg, Rectal, QDAY PRN dextrose IV 12.5-25 g, Intravenous, PRN fentaNYL (PF) (SUBLIMAZE) injection 25 mcg, Intravenous, q4h PRN glucagon (GLUCAGEN) injection 1 mg, Intramuscular, PRN glucose (Diabetic Use) oral gel, Oral, PRN lactulose (CHRONULAC) solution 20 g, Oral, TID PRN ondansetron (ZOFRAN) injection 4 mg, Intravenous, q6h PRN ?? oxyCODONE-acetaminophen (PERCOCET) 10-325 MG tablet 1 tablet, Oral, q4h PRN A/P: Sepsis TME Constipation Infected right total hip arthroplasty status post wound VAC and lavage N/V Anemia chronic disease CKD Chronic AFib VALENTINA --continue antibiotics. Pharmacy dosing vancomycin.Vanc administered into wound at time of hip replacement. Delayed closure --more aggressive bowel regimen, lactulose/linzess --avoid ach. Tigan prn --delirium precautions --transfuse <7 --avoid nephrotoxic meds --cont more aggressive pt/ot --Home with at d/c( adamant about taking him home) --cont bipap qhs Patient's Functional Baseline prior to admit: community dwelling Discharge Planning to Next Site of Care: Based on clinical conditions and medical necessities and after reviewing PT/OT evaluation, family support, patient wishes, and discussion with multidisciplinary care team (quality assurance project manager, OUTREACH ANALYST, CSN, Therapy services, Pharmacy, and recovery coordinator) the current recommendation for the most appropriate discharge destination at this time is: Custodial Facility (SNF) vs Home with HH Anticipated discharge date: 02/12-02/13 Disposition: Due to medical issues in the assessment and plan, continued hospitalization will be required. Blaire Meek MD Note is dictated utilizing voice recognition software. Unfortunately this leads to occasional typographical errors. I apologize in advance if the situation occurs. If questions occur please contact me for clarification. * Cynthia Ibarra LPN - 02/10/2019 2:36 AM CDT Shift Summary: Pt rested quietly this shift. Mandy care for urinary incontinence and condom catheterreplaced. Pt tolerated well. Abductor pillow in place. Dressing to right hip D&I. Call light and phone in reach. Pt medicated x 1 for pain and did obtain relief. Will continue to monitor. * Lilia Malik RCP - 02/09/2019 11:09 PM CDT Pt placed on home cpap with 2lpm bleed-in rt will continue to monitor * Sathya Cheney, PT - 02/09/2019 5:50 PM CDT Treatment session : 5:05 pm-5:20 pm Subjective: Pleasant , alert, receptive and cooperative . Spouse present Physical Therapy Treatment Summary for today: Pain Rating and Location: 10 R hip LE Exercise per ARNALDO protocol , see flow sheet . H.O. PHP's : educated patient and spouse, H.O. Up to chair : Tolerated 2 hours up in chair Vitals: SpO2: 98 % Pulse: 99 Resp: 18 BP: 121/62 Education Provided: Role of PT; importance of increasing activity as tolerated;pursed lip and deep breathing techniques; PHP's; HEP Handouts Provided: PHP's , HEP Please refer to Filed Flowsheet PT Treatment for further details. All vitals stable throughout visit; All lines, monitors, IV's, equipment in place and intact pre and post visit. Nursing aware of all the above Call light in reach upon PT departure. A : Reported R hip pain trending down. Tolerated 2 hours up in chair . Tolerated LE exercise as noted above . Education referencing PHP's with written and verbal instructions appeared received well. Recommendations: Patient would benefit from continued physical therapy to address all the above deficits in functional mobility/ambulation/strength to return to previous living situation. SNF level rehab is being planned per spouse Sathya Cheney , PT Ascom [phone] If this is the last Physical Therapy visit, this serves as the discharge summary. * Blaire Meek MD - 02/09/2019 4:50 PM CDT 02/09/2019 4:50 PM Admitted: 02/02/2019 8:57 PM HD: 7 CC: Right hip pain Summary:??68 year old??white male with hx CAD, atrial fibrillation, prior DVT, COPD, cirrhosis, OSAwho presents with 1 week of right hip pain with associated swelling and redness of the region.He went to [facility] and workup there including CT of the right hip revealed suspected abscess for which he was transferred here for further evaluation by [facility] Orthopedics. Has history of MRSA bacteremia and epidural abscess as well. He is community dwelling living with his . Current symptoms: BM yesterday, incontinence noted. Pain is better. Confusion is better, still slowto answer. Nauseated, denies severe pain. No f/c overnight. Net -ve for fluids. Wound vac off PE: Filed Vitals: 02/09/19 0823 02/09/19 1249 02/09/19 1332 02/09/19 1635 BP: 122/64 137/78 121/62 Pulse: 90 96 96 99 Resp: 18 20 20 18 Temp: 97.8 ??F (36.6 ??C) 97.9 ??F (36.6 ??C) 97.9 ??F (36.6 ??C) TempSrc: Oral Oral Oral SpO2: 98% 95% 94% 98% Weight: Height: Gen:ASA, mild distress. Does not appear in pain. Oriented to self, month HEENT: NCAT CV: RRR, No m/g/r, no ectopy Carol: No adventitial sounds or wheezes, no cough noted Abd: benign Neuro: nonfocal; proprioception, gait not tested. Reflexes intact Psych: approp. No Si/Hi Skin: wound c/d/i. MSK: DELICIA Bilat. Nl personal insurance advisor appreciated. No cce, no erythema of surgical site Recent Labs Component Name 02/09/19 0230 02/08/19 0256 02/07/19 0409 SODIUM 137 137 135* POTASSIUM 4.3 3.8 4.3 CHLORIDE 102 103 104 CO2 25 27 23 BUN 20 20 17 CREATININE 1.23* 1.17 1.20* GLUCOSE 119* 90 92 CALCIUM 8.9 9.3 9.0 Recent Labs Component Name 02/03/19 0106 ALBUMIN 3.1* ALT 21 AST 20 Recent Labs Component Name 02/09/19 0230 02/08/19 0256 02/07/19 0409 WBC 11.7* 8.9 10.0 HGB 8.3* 8.9* 8.0* HCT 27.5* 30.8* 27.5* PLTCOUNT 282 241 176 MEDICATIONS FOR CURRENT ENCOUNTER: SCHEDULED MEDICATIONS: albuterol (PROVENTIL;VENTOLIN) (2.5 MG/3ML) 0.083% nebulizer solution 2.5 mg, Inhalation, q6h ascorbic acid (VITAMIN C) tablet 500 mg, Oral, BID aspirin tablet 325 mg, Oral, BID budesonide-formoterol (SYMBICORT) 160-4.5 MCG/ACT inhaler 2 puff, Inhalation, BID cyanocobalamin (VITAMIN B-12) tablet 500 mcg, Oral, QDAY metoprolol tartrate (LOPRESSOR) tablet 25 mg, Oral, BID morphine CR 12hr (MS CONTIN) tablet 15 mg, Oral, q12h pantoprazole EC (PROTONIX) tablet 40 mg, Oral, QDAY polyethylene glycol 3350 (MIRALAX) packet 17 g, Oral, QDAY senna-docusate (SENOKOT-S) tablet 2 tablet, Oral, QDAY tamsulosin (FLOMAX) capsule 0.4 mg, Oral, AT BEDTIME vancomycin (VANCOCIN) IV dose per pharmacy, Does not apply, DIRECTED vancomycin HCl (VANCOCIN) 1,500 mg in 0.9% NaCl 500 mL IVPB, Intravenous, q24h zinc sulfate (ZINCATE) capsule 220 mg, Oral, QDAY ?? [COMPLETED] ceFAZolin (ANCEF) 2,000 mg in 50 ml IVPB, Intravenous, q8h CONTINUOUS MEDICATIONS: lactated ringers infusion, Intravenous, Continuous ?? lactated ringers infusion, Intravenous, Continuous PRN MEDICATIONS: acetaminophen (TYLENOL) tablet 650 mg, Oral, q6h PRN baclofen (LIORESAL) tablet 10 mg, Oral, BID PRN benzonatate (TESSALON) capsule 200 mg, Oral, TID PRN bisacodyl (DULCOLAX) suppository 10 mg, Rectal, QDAY PRN dextrose IV 12.5-25 g, Intravenous, PRN fentaNYL (PF) (SUBLIMAZE) injection 25 mcg, Intravenous, q4h PRN glucagon (GLUCAGEN) injection 1 mg, Intramuscular, PRN glucose (Diabetic Use) oral gel, Oral, PRN lactulose (CHRONULAC) solution 20 g, Oral, TID PRN ondansetron (ZOFRAN) injection 4 mg, Intravenous, q6h PRN ?? oxyCODONE-acetaminophen (PERCOCET) 10-325 MG tablet 1 tablet, Oral, q4h PRN A/P: Sepsis TME Constipation Infected right total hip arthroplasty status post wound VAC and lavage N/V Anemia chronic disease CKD Chronic AFib VALENTINA --continue antibiotics. Pharmacy dosing vancomycin.Vanc administered into wound at time of hip replacement. Delayed closure --more aggressive bowel regimen, lactulose/linzess --avoid ach. --delirium precautions --transfuse <7 --avoid nephrotoxic meds --cont more aggressive pt/ot --Home with HH at d/c( adamant about taking him home) --cont bipap qhs Patient's Functional Baseline prior to admit: community dwelling Discharge Planning to Next Site of Care: Based on clinical conditions and medical necessities and after reviewing PT/OT evaluation, family support, patient wishes, and discussion with multidisciplinary care team (quality assurance project manager, OUTREACH ANALYST, CSN, Therapy services, Pharmacy, and recovery coordinator) the current recommendation for the most appropriate discharge destination at this time is: Custodial Facility (SNF) vs Home with HH Anticipated discharge date: 02/12-02/13 Disposition: Due to medical issues in the assessment and plan, continued hospitalization will be required. Blaire Meek MD Note is dictated utilizing voice recognition software. Unfortunately this leads to occasional typographical errors. I apologize in advance if the situation occurs. If questions occur please contact me for clarification. * Autumn Graham, OT - 02/09/2019 3:21 PM CDT Occupational Therapy Treatment Summary Chart reviewed for diagnosis and medical systems review. Nursing consented for OT. Explained purpose of OT and patient consented to participate in therapy. Precautions: PHP, WBAT SUBJECTIVE: I'm still confused. It takes me awhile to think Psychosocial: Patient Behaviors: Cooperative;Anxious OBJECTIVE: Pain Assessment: Pain Rating Score #: 8 Pain Location : Hip Pain Orientation: Right Cognition: Orientation Level: Oriented to Person;Oriented to Place;Oriented to Situation;Oriented to Time Level of Consciousness-Adult: Alert Cognition: Attention/concentration-decreased;Follows one step commands;Processing-delayed;Judgement-decreased;Safety awareness-decreased Functional Mobility: Bed Mobility: Supine to Sit: Maximum Assistance;X 2 Transfers: Sit to Stand: Maximum Assistance x 1, Mod A x 1 Stand to Sit: Maximum Assistance ADL Tasks: Lower Body Dressing: Total Assistance Activity Tolerance/Vital Signs: Activity Tolerance: Requires rest breaks ASSESSMENT: Patient supine in bed upon therapy arrival. Unable to recall PHP precautions. Educated and reviewed. Tranfers to EOB with Max A x 2. Sits EOB with F+ balance. Total assist for sock management. Stands from EOB with Max A x 1, Mod A x1. Ambulates forward with Max A x 1, SBA x 1 and use ofw/w. Pt takes steps towards bathroom but unable to make it fully to bathroom for grooming or toileting tasks. Chair brought up behind pt. Pt becomes anxious with sitting, [place] assist to reach hand back to chair, Max A for stand to sit. Set-up for feeding at end of session Call light and phone in reach All lines, monitors, IV's, equipment in place and intact pre and post visit. RN notified of patient's performance/location end of session. Educated patient/family in benefits of OT, PHP, ADL's Please refer to the Filed Flowsheet OT Treatment for further details. Refer to care plan for goals. RECOMMENDATIONS/PLAN: Patient requires education on PHP. Will benefit from introduction of AE at next session. AR vs SNF. Due to increased pain, may be unable to tolerate AR at this time but may become appropriate with continued therapy. Per SW note, pt prefer to be closer to home in [place] which wouldrequire SNF placement. OT Discharge Recommendations: Inpatient Rehab;Custodial Facility If this is the last Occupational Therapy visit, this serves as the discharge summary. Autumn Graham OT * Fay Otero MSW - 02/09/2019 3:09 PM CDT Case reviewed with RN/CM during afternoon huddle. Per huddle pt spouse requesting SNF placement at [facility] (1st choice) and [facility] (2nd choice). Per huddle pt scheduled for a procedure next Tuesday. OUTREACH ANALYST will refer pt to these facilities once his closer to d/c. CHRIS Herrera [phone] * Sathya Cheney, PT - 02/09/2019 2:44 PM CDT Nursing ok'd to see patient for physical therapy Co Rx with OT secondary to level of assist needed S/P R ARNALDO revision both components and excision of R GT bursa 02/08/2019 Subjective: Pleasant, alert, receptive and cooperative . Stated that he felt good enough to get up to the chair. Patient stated that he is confused. Physical Therapy Treatment Summary for today: Pain Rating and Location: 01/13 R hip Bed Mobility training Supine to Sit: Maximum Assistance;X 2 Max cues for sequencing , PHP's R hip[ Transfer training Sit to Stand: Maximum Assistance( x 1, mod a x 1 ) Stand to Sit: Maximum Assistance( x 1 , mod a x 1 ) Max cues for sequencing, hand/foot placement , PHP's Ambulation training Distance Ambulated: 5 FEET Ambulation: Assistive Device: Gait Belt;Walker-2 Wheeled Ambulation: Level of Assistance: Moderate Assistance;Maximum Assistance Ambulation: Gait Deviations: Antalgic;Base of Support - Increased;Maira - Decreased;Heel Strike -Decreased;Hip/knee flexion during swing phase-- decreased;Increased Trunk Flexion;Push Off - Decreased;Stance Time - Decreased;Step Length - Decreased;Weight Shift - Decreased;Wide Based Gait PHP's : pt educated / instructed PHP's R hip Balance : Poor static stand / dynamic gait balance with walker support Activity tolerance Vitals: SpO2: 94 % Pulse: 96 Resp: 20 BP: 137/78 Education Provided: Role of PT; importance of increasing activity as tolerated;pursed lip and deep breathing techniques; PHP's Please refer to Filed Flowsheet PT Treatment for further details. All vitals stable throughout visit; All lines, monitors, IV's, equipment in place and intact pre and post visit. Nursing aware of all the above Call light in reach upon PT departure. A : Able to participate in PT without vomiting in the afternoon. Max a of 2 for bed mobility with max cues for PHP's.Max /Mod a for transfers and gait as noted above. Recommendations: Patient would benefit from continued physical therapy to address all the above deficits in functional mobility/ambulation/strength to return to previous living situation. Appears post discharge rehab will be indicated to assist to improve his functional mobility so he may safely return home with his , SNF level rehab. Sathya Cheney , PT Ascom [phone] If this is the last Physical Therapy visit, this serves as the discharge summary. * Sathya Cheney, PT - 02/09/2019 2:43 PM CDT Problem: Therapy - Total Hip Arthroplasty Goal: STG - Patient will maintain weight bearing status with all transfers and ambulation. Description WBAT R LE Outcome: Ongoing Goal: STG - Patient will maintain hip precautions with all transfers and ambulation. Description R Hip PHP's Outcome: Ongoing Goal: STG - Patient will ambulate Description 50 ft with ww with R LE WBAT with min a Outcome: Ongoing Goal: STG - Patient will negotiate ___ step(s). Description 5 steps x 2 with rail(s) with min a Outcome: Ongoing Goal: STG - Patient is independent with home exercise program. Outcome: Ongoing Goal: TH STG - Able to move from supine to sitting. Description And perform all functional bed mobility with SBA Outcome: Ongoing Goal: TH STG - Able to transfer sit to stand. Description And perform all functional transfers with min a Outcome: Ongoing * Paz Chen RN - 02/09/2019 2:20 PM CDT Patient from [place], lives with his . Patient s/p debridement infected R hip prosthesis. Delayed primary closure, wound vac til closure; 4-5 days. Continue iv anbx, await new cx. Patient is traditional medicaire. Max assist x2 with mobility. Eligible for skilled rehab. Andra Oneill cm, spoke to re facilities in [place] for skill rehab. [facility]. Anticipate discharge next week. Back up facility, if needed, [facility]. Will inform sw Fay chen rn/cm [phone] * Fay Otero MSW - 02/09/2019 11:26 AM CDT Case reviewed during morning huddle. RN/CM to discuss d/c options with pt spouse. OUTREACH ANALYST will continueto follow and coordinate d/c. CHRIS Herrera [phone] * Sathya Cheney, PT - 02/09/2019 11:14 AM CDT Attempted to see patient again for physical therapy. Unable to complete visit due to patient still feeling nauseated Will attempt to see patient at a later time/date as indicated Sathya Cheney PT ascom #[phone] * Sathya Cheney, PT - 02/09/2019 9:13 AM CDT Attempted to see patient for physical therapy. Unable to complete visit due to patient vomiting andnurse requesting not to see at this time. Will attempt to see patient at a later time/date as schedule. Sathya Cheney PT ascom #[phone] * Leah Franklin RCP - 02/09/2019 7:49 AM CDT Mr Keys received his 0800, 1400 treatments; he remains on room air; home CPAP machine on standby; will continue to monitor. Leah Franklin, Respiratory Care Practitioner 02/09/2019 1:33 PM * Daina Valverde RN - 02/09/2019 7:43 AM CDT Shift Summary Last VS/WT: BP 128/65 Pulse 99 Temp 97.9 ??F (36.6 ??C) (Oral) Resp 18 Ht 1.803 m (5' 11 ) Wt 94.3 kg (208 lb) SpO2 98% BMI 29.01 kg/m2 Pain: Pt reporting 5/10 pain in back this am. PRN Percocet administered per AUG. Pt assisted with repositioning. Pt appeared to be sleeping comfortably after medication administration. Neuro/Psych: A&Ox2-3. Oriented to self, place, and situation and knows why he came to the hospital. Pt still slightly confused. Cardiac Rhythm/edema: Afib HR 80-100s. PVC's occasional to frequent. Pulses 2/2 strong. Skin/Wound: R hip dressings CDI. Respiratory: Pt on 2 L NC. CPAP at bedtime. RR WDL. Lung sounds clear to diminished. GI/: Active BS. No BM this shift. Pt incontinent of urine x1 during my care of pt. Condom catheter attempted but came off. Other: Bed low and locked. Bed alarm on. Call light within reach. Report given to RN at shift change. Daina Valverde RN 02/09/2019 7:49 AM * Daina Valverde RN - 02/09/2019 7:42 AM CDT Problem: Pain/Discomfort Goal: Patient exhibits reduced pain/discomfort as evidenced by pain scores Outcome: Ongoing Note: Mr. Keys will exhibit decreased pain and discomfort as evidenced by pain scores during my shift. Pt assessed for pain. Pharmacological and non-pharmacological interventions utilized as needed. Problem: Fall Risk Goal: Patient will remain free of falls Outcome: Ongoing Note: Mr. Keys will remain safe from falls and injury during my shift. Fall precautions reviewed with patient. Bed low and locked. Bed alarm on. Call light within reach. Pt instructed to use call light for assistance. Problem: Hemodynamic Status/Cardiac Output Goal: Patient has stable vital signs and fluid balance 02/09/2019 0742 by Daina Valverde RN Outcome: Ongoing 02/09/2019 0739 by Daina Valverde RN Flowsheets (Taken 02/09/2019 0501 by Chato Alatorre) Temp: 97.9 ??F (36.6 ??C) Pulse: 99 Resp: 18 BP: 128/65 SpO2: 98 % Note: Mr. Keys will have stable vital signs and fluid balance during my shift. Vitals signs, telemetry, and I&O's assessed. Pt assessed for edema. * Alberto Shell MD - 02/08/2019 2:04 PM CDT [facility] Orthopedic Surgery Postoperative Check José Miguel Keys, 68 year old, male : 1950 CSN: [id number] Admitted: 02/02/2019 8:57 PM Subjective Nausea/vomiting: none Pain: controlled Patient stable and resting in PACU Vitals: Patient Vitals for the past 6 hrs: Temp Pulse Resp BP BP Method 02/08/19 0829 98.3 ??F (36.8 ??C) 102 22 132/75 Automatic Physical Exam General appearance: resting, cooperative, and NAD RLE -Inspection: dressings c/d/i, compartments soft/compressible -ROM: immobilized in ABduction pillow -Motor: Able to plantarflex ankle, able to dorsiflex ankle, able to plantarflex great toe, able to dorsiflex great toe -Sensation: SILT to dorsal/plantar foot -Vascular: 2+ DP pulse with brisk capillary refill, toes warm and well perfused Assessment/Plan Surgery Date: 02/08/2019 Diagnosis: 68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 Alexander - s/p: Right hip I&D with Femoral head and poly exchange with delayed primary closure 02/08/[address] Alexander 1. Patient transferred to the PACU in stable condition. Patient will be transferred to the floor 2. Antibiotics- Ancef 2mg q8 for 24 hours. Vancocin per ID 3. Weight-bearing/Activity/Brace Status: WBAT RLE with posterior hip precautions 4. DVT Prophylaxis: SCD's today. OK for DVT prophylaxis beginning this evening. Recommend ASA 325 BID or Coumadin with a target INR of 1.5-1.8. No Lovenox 5. Diet: reg 6. Drains- None 7. PT/OT 8. Pain Control 9. Please page Orthopedics with any questions or concerns Alberto Shell MD 02/08/2019 2:04 PM * Eunice Aly, PharmD - 02/08/2019 12:54 PM CDT Vancomycin Per Pharmacy (Day 6) 68 year old male receiving vancomycin for the management of MRSA OM/ARNALDO infection. Other Anti-infectives: none Height: 5' 11 (180.3 cm) (02/02/192124) Weight: 94.3 kg (208 lb) (02/02/192124) Temp (24hrs), Av.9 ??F (36.6 ??C), Min:97.4 ??F (36.3 ??C), Max:98.3 ??F (36.8 ??C) Current Labs: Recent Labs Component Name 02/08/19 0256 02/07/19 04002/06/19 0419 BUN 20 17 17 CREATININE 1.17 1.20* 1.23* WBC 8.9 10.0 9.1 Renal: Estimated Creatinine Clearance: 68.9 mL/min (based on SCr of 1.17 mg/dL). Levels: Recent Labs Component Name 02/07/1940802/06/199 02/05/19 0238 02/04/19 1412 07/26/17 0601 07/24/17 0508 VANCORNDM 20.9 19.2 21.8 - - - VANCTROUGH - - - 28.6* 17.1 20.8* Assessment Scheduled vancomycin regimen is 1500mg IV every 24 hours. Goal range is 15-20 mcg/ml . Originally planned level for tomorrow, however dose today given late due to being in OR. Will cancel tomorrow's level and reorder tomorrow based on timing of dose. Plan: Will continue same dose and frequency. Next vancomycin level will be in 2 days Pharmacy will continue to monitor labs and adjust dose per protocol. Eunice Aly PharmD 02/08/2019 12:53 PM * Deann Emerson, RD/LD - 02/08/2019 12:36 PM CDT CLINICAL NUTRITION ASSESSMENT Assessment: Assessment 2/2 wound vac and poor intake noted on rescreen for LOS. Pt is surgery today for I&Dand possible revision arthroplasty. BMI indicates overwt. PO intake very poor. Pt was receiving Ensure but intake of this was very poor as well. Pt has hx dm but not on dm meds at present. A1c indicates very good blood sugar control SEXER. Vitamin B12, zinc and vitamin C supplements noted. BM 02/08. When diet advanced recommend regular 2/2 very poor intake. Will continue with Ensure High Protein for Muscle Health bid provides 160 calories ,16 grams protein and 19 grams of carb per 8 oz serving. Will add Magic Cup (Dysphagia Supplement) provides 290 calories and 9 gm protein per serving and Prosource Gelatein (High protein gelatin) daily provides 150 calories, 20 grams of protein, & 21 gCarb per 4 oz. serving. Med/Surg History and Clinical Diagnoses: infected rt hip prosthesis, s/p I&D, wound vac, TME, sepsis, ckd, dm Height: 5' 11 (180.3 cm) Wt Readings from Last 5 Encounters: 02/02/19 208 lb (94.3 kg) 08/17/18 212 lb (96.2 kg) 02/15/18 195 lb (88.5 kg) 09/17/17 203 lb 11.3 oz (92.4 kg) 08/14/17 225 lb (102.1 kg) IBW: 172# 120% IBW BMI: Body mass index is 29.01 kg/m??. BMI Range: Overweight UBW: unknown Unintentional weight change:possible 4# loss past 5 months Current diet order: NPO Current supplement order: ensure hp and magic cup Food Allergies: No known food allergies P.O.Intake for the past 48 hrs: % Meal Taken Av % Min: 0 % Max: 25 % % Oral Supplement Intake: Oral Supplement % Taken Av % Min: 0 % Max: 0 % GI Concerns: Nausea;Constipation Appetite: Poor Chewing/Swallowing: None Pain affecting intake: No Estimated Needs: KCAL: 1997-6176(20-25 kcal/kg bw) Protein (g): 94-117(1.2-1.5 gm/kg iw) Fluid (ml): 1 ml/kcal Needs based on: Kcal/kg- (Comment) Recommended Access Route: PO Labs: Recent Labs Component Name 02/08/19 0256 02/03/19 0106 SODIUM 137 - 134* POTASSIUM 3.8 - 4.3 CHLORIDE 103 - 101 CO2 27 - 25 BUN 20 - 19 CREATININE 1.17 - 1.22* GLUCOSE 90 - 112* CALCIUM 9.3 - 9.5 ALBUMIN - - 3.1* ALKPHOS - - 304* ALT - - 21 AST - - 20 TBIL - - 1.0 TPROT - - 7.0 EGFR >60 - 59 - = values in this interval not displayed. Recent Labs Component Name 09/19/17 0243 09/18/17 0003 09/17/17 0433 PHOS 2.5 2.8 3.2 Recent Labs Component Name 02/03/19 0106 07/14/17 2212 HGBA1C 5.8 6.3 No results for input(s): PREALBUMIN in the last 09895 hours. No data found. PERTINENT MEDICATIONS FOR CURRENT ENCOUNTER: ?? SCHEDULED MEDICATIONS: ?? albuterol (PROVENTIL;VENTOLIN) (2.5 MG/3ML) 0.083% nebulizer solution 2.5 mg, Inhalation, q6h ?? ascorbic acid (VITAMIN C) tablet 500 mg, Oral, BID ?? aspirin chew tablet 81 mg, Oral, QDAY ?? budesonide-formoterol (SYMBICORT) 160-4.5 MCG/ACT inhaler 2 puff, Inhalation, BID ?? cyanocobalamin (VITAMIN B-12) tablet 500 mcg, Oral, QDAY ?? metoprolol tartrate (LOPRESSOR) tablet 25 mg, Oral, BID ?? morphine CR 12hr (MS CONTIN) tablet 15 mg, Oral, q12h ?? pantoprazole EC (PROTONIX) tablet 40 mg, Oral, QDAY ?? polyethylene glycol 3350 (MIRALAX) packet 17 g, Oral, QDAY ?? senna-docusate (SENOKOT-S) tablet 2 tablet, Oral, QDAY ?? tamsulosin (FLOMAX) capsule 0.4 mg, Oral, AT BEDTIME ?? vancomycin (VANCOCIN) IV dose per pharmacy, Does not apply, DIRECTED ?? vancomycin HCl (VANCOCIN) 1,500 mg in 0.9% NaCl 500 mL IVPB, Intravenous, q24h ?? zinc sulfate (ZINCATE) capsule 220 mg, Oral, QDAY ?? [COMPLETED] enoxaparin (LOVENOX) injection 30 mg, Subcutaneous, q12h ?? CONTINUOUS MEDICATIONS: ?? lactated ringers infusion, Intravenous, Continuous ?? lactated ringers infusion, Intravenous, Continuous Skin/Wound: incision Last BM: 02/08 Nutrition Care Process (1) Nutrition Diagnostic Statement: Increased nutrient needs related to:: increased demands for wound healing as evidenced by:: estimated protein needs .. Nutrition Intervention: Meals and snacks:;Medical Food Supplements: Education needed: Supplements Will follow up with education prior to discharge. Following at moderate nutritional risk. Nutrition recommendation: agree with current nutrition order ?? Will add Magic cup and high protein jello daily and continue with Ensure hp bid ?? Recommend regular diet when advanced, until PO intake improves. Monitoring: PO intake, supplement tolerance, wt, labs Evaluation: Nutrition Goal: Total intake will meet estimated nutrient needs Nutrition Goal Timeframe: Within 24 - [address]/SALVADOR 02/08/2019 12:41 PM Ascom [phone] * Fay Otero OUTREACH ANALYST - 02/08/2019 11:16 AM CDT Case reviewed during morning huddle. Pt currently in OR today for I&D Right hip, possible component exchange, possible revision arthroplasty. OUTREACH ANALYST will continue to follow and assist with d/c. * Anthony Bardales RN - 02/08/2019 10:54 AM CDT Problem: Pain/Discomfort Goal: Patient exhibits reduced pain/discomfort as evidenced by pain scores Outcome: Ongoing Note: Mr. Keys will remain comfortable and pain free. His pain is assessed every four hours and as needed. Will continue to monitor. Problem: Fall Risk Goal: Patient will remain free of falls Outcome: Ongoing Note: Mr. Keys will remain safe and free from falls. His call light is within reach and his family is atbedside. Will continue to monitor. Problem: Hemodynamic Status/Cardiac Output Goal: Patient has stable vital signs and fluid balance Outcome: Ongoing Note: Mr. Keys will remain hemodynamically stable. His VS are assessed every four hours and as needed. Will continue to monitor. * Mila White OT - 02/08/2019 10:40 AM CDT OT follow up - pt currently off the floor. Will continue to follow. Thank you. LASHANDA Thurman/Alissa Ascom: [phone] * Nico Yun, PT - 02/08/2019 8:33 AM CDT Attempted to see patient for physical therapy. Spoke to DONTAE Cruz, who stated patient had increasepain through out the night and was unable to rest. RN requested to hold therapy at this time to allow patient to rest prior to scheduled surgery around 10:00-10:30. Will attempt to see patient at a later time/date. Nico Yun PT ASCOM [phone] * Blaire Meek MD - 02/08/2019 7:35 AM CDT 02/08/2019 7:35 AM Admitted: 02/02/2019 8:57 PM HD: 6 CC: Right hip pain Summary:??68 year old??white male with hx CAD, atrial fibrillation, prior DVT, COPD, cirrhosis, OSAwho presents with 1 week of right hip pain with associated swelling and redness of the region.He went to [facility] and workup there including CT of the right hip revealed suspected abscess for which he was transferred here for further evaluation by [facility] Orthopedics. Has history of MRSA bacteremia and epidural abscess as well. He is community dwelling living with his . Current symptoms: BM yesterday. Pain is better. Confusion is better, still slow to answer. Nauseated, denies severe pain. Resting in PACU PE: Filed Vitals: 02/08/19 0127 02/08/19 0244 02/08/19 0313 02/08/19 0727 BP: 106/69 156/84 Pulse: 94 86 93 94 Resp: 16 16 16 24 Temp: 97.4 ??F (36.3 ??C) 97.8 ??F (36.6 ??C) TempSrc: Oral Oral SpO2: 97% 100% Weight: Height: I/O/T/U:2496/3975/-1475/numerous urine, 1 liquid stool Gen:ASA, mild distress. Does not appear in pain. Oriented to self, month HEENT: NCAT CV: RRR, No m/g/r, no ectopy Carol: No adventitial sounds or wheezes, basilar crackles improved with cough Abd: benign Neuro: nonfocal; proprioception, gait not tested. Reflexes intact Psych: approp. No Si/Hi Skin: nl, senescent changes. No rashes, petechia, purpura. MSK: MAEE Bilat. Nl personal insurance advisor appreciated. Recent Labs Component Name 02/08/19 0256 02/07/19 0409 02/06/19 0419 SODIUM 137 135* 136 POTASSIUM 3.8 4.3 4.7 CHLORIDE 103 104 106 CO2 27 23 23 BUN 20 17 17 CREATININE 1.17 1.20* 1.23* GLUCOSE 90 92 110* CALCIUM 9.3 9.0 8.8 Recent Labs Component Name 02/03/19 0106 ALBUMIN 3.1* ALT 21 AST 20 Recent Labs Component Name 02/08/19 0256 02/07/19 0409 02/06/19 0419 WBC 8.9 10.0 9.1 HGB 8.9* 8.0* 7.9* HCT 30.8* 27.5* 27.5* PLTCOUNT 241 176 189 MEDICATIONS FOR CURRENT ENCOUNTER: SCHEDULED MEDICATIONS: albuterol (PROVENTIL;VENTOLIN) (2.5 MG/3ML) 0.083% nebulizer solution 2.5 mg, Inhalation, q6h ascorbic acid (VITAMIN C) tablet 500 mg, Oral, BID aspirin chew tablet 81 mg, Oral, QDAY budesonide-formoterol (SYMBICORT) 160-4.5 MCG/ACT inhaler 2 puff, Inhalation, BID cefepime (MAXIPIME) 2,000 mg in 0.9% NaCl 50 mL IVPB, Intravenous, q8h cyanocobalamin (VITAMIN B-12) tablet 500 mcg, Oral, QDAY metoprolol tartrate (LOPRESSOR) tablet 25 mg, Oral, BID morphine CR 12hr (MS CONTIN) tablet 15 mg, Oral, q12h pantoprazole EC (PROTONIX) tablet 40 mg, Oral, QDAY polyethylene glycol 3350 (MIRALAX) packet 17 g, Oral, QDAY senna-docusate (SENOKOT-S) tablet 2 tablet, Oral, QDAY tamsulosin (FLOMAX) capsule 0.4 mg, Oral, AT BEDTIME vancomycin (VANCOCIN) IV dose per pharmacy, Does not apply, DIRECTED vancomycin HCl (VANCOCIN) 1,500 mg in 0.9% NaCl 500 mL IVPB, Intravenous, q24h zinc sulfate (ZINCATE) capsule 220 mg, Oral, QDAY [COMPLETED] enoxaparin (LOVENOX) injection 30 mg, Subcutaneous, q12h ?? [COMPLETED] furosemide (LASIX) injection 40 mg, Intravenous, Once CONTINUOUS MEDICATIONS: ?? lactated ringers infusion, Intravenous, Continuous PRN MEDICATIONS: acetaminophen (TYLENOL) tablet 650 mg, Oral, q6h PRN baclofen (LIORESAL) tablet 10 mg, Oral, BID PRN benzonatate (TESSALON) capsule 200 mg, Oral, TID PRN bisacodyl (DULCOLAX) suppository 10 mg, Rectal, QDAY PRN dextrose IV 12.5-25 g, Intravenous, PRN fentaNYL (PF) (SUBLIMAZE) injection 25 mcg, Intravenous, q4h PRN glucagon (GLUCAGEN) injection 1 mg, Intramuscular, PRN glucose (Diabetic Use) oral gel, Oral, PRN lactulose (CHRONULAC) solution 20 g, Oral, TID PRN ondansetron (ZOFRAN) injection 4 mg, Intravenous, q6h PRN ?? oxyCODONE-acetaminophen (PERCOCET) 10-325 MG tablet 1 tablet, Oral, q4h PRN A/P: Sepsis TME Constipation Infected right total hip arthroplasty status post wound VAC and lavage N/V Anemia chronic disease CKD Chronic AFib VALENTINA --continue antibiotics. Pharmacy dosing vancomycin. Tolerating wound vac ---Slowed IVF --more aggressive bowel regimen, lactulose/linzess --discontinue scop patch. Likely ach induced delirium. Delirium precautions --transfuse <7 --avoid nephrotoxic meds --inc activ as kip per ortho reccs --Home with HH at d/c( adamant about taking him home) --cont bipap qhs Patient's Functional Baseline prior to admit: community dwelling Discharge Planning to Next Site of Care: Based on clinical conditions and medical necessities and after reviewing PT/OT evaluation, family support, patient wishes, and discussion with multidisciplinary care team (quality assurance project manager, OUTREACH ANALYST, CSN, Therapy services, Pharmacy, and recovery coordinator) the current recommendation for the most appropriate discharge destination at this time is: Custodial Facility (SNF) vs Home with HH Anticipated discharge date: 02/12-02/13 Disposition: Due to medical issues in the assessment and plan, continued hospitalization will be required. Blaire Meek MD Note is dictated utilizing voice recognition software. Unfortunately this leads to occasional typographical errors. I apologize in advance if the situation occurs. If questions occur please contact me for clarification. * Sumaya, Alberto Dhillon MD - 02/08/2019 6:04 AM CDT Images from the original note were not included. [facility] Orthopedic Surgery Daily Progress Note 02/08/2019 José Miguel Keys, 68 year old, male : 1950 CSN: [id number] - Admission Date/Time: 02/02/2019 8:57 PM -Today's Date/Time: 02/08/2019 6:05 AM Subjective: Patient seen and examined this AM. Resting comfortably, without orthopedic complaints. Has been NPO since midnight. Ready for surgery today. Data BP 156/84 Pulse 93 Temp 97.8 ??F (36.6 ??C) (Oral) Resp 16 Ht 5' 11 (1.803 m) Wt 208 lb (94.3 kg) SpO2 100% BMI 29.01 kg/m2Temp (24hrs), Av ??F (36.7 ??C), Min:97.4 ??F (36.3 ??C), Max:99 ??F (37.2 ??C) Labs Recent Labs Component Name 02/08/19 0256 02/07/19 0409 02/06/19 0419 WBC 8.9 10.0 9.1 HGB 8.9* 8.0* 7.9* HCT 30.8* 27.5* 27.5* PLTCOUNT 241 176 189 Recent Labs Component Name 02/04/19 0737 02/03/19 0106 10/10/18 1515 INR 1.0 1.1 1.1 Cultures Microbiology Results (Displays last 21 days for this encounter ONLY) Procedure Component Value - Date/Time CULTURE ANAEROBE [[id number]] (Normal) Collected: 02/04/191128 Lab Status: Preliminary result Specimen: Micro from Hip Updated: 02/06/19633 Culture Culture in progress Narrative: Surgical Description: Right Hip CULTURE WOUND+GRAM STAIN [[id number]] (Abnormal) (Susceptibility) Collected: 02/04/191128 Lab Status: Final result Specimen: Micro from Hip Updated: 02/06/19 1157 Culture Rare Staphylococcus aureus methicillin-resistant (MRSA) Gram Stain Heavy Polymorphonuclear cells Moderate Red blood cells No organisms seen Narrative: Methicillin-resistant Staphylococci (MRSA) are resistant to all currently available beta-lactam antibiotics with the exception of the newer cephalosporins with anti-MRSA activity. Contact precautionsrequired. Surgical Description: Right Hip Susceptibility Staphylococcus aureus methicillin-resistant (MRSA) (1) Antibiotic Interpretation Microscan Method Status Ciprofloxacin Resistant >=8 ug/mL UMESH Final Clindamycin Resistant >=4 ug/mL UMESH Final Doxycycline Susceptible <=0.5 ug/mL UMESH Final Erythromycin Resistant >=8 ug/mL UMESH Final Gentamicin Susceptible <=0.5 ug/mL UMESH Final Inducible Clindamycin Resistance Neg NEG ug/mL UMESH Final Levofloxacin Resistant >=8 ug/mL UMESH Final Linezolid Susceptible 2 ug/mL UMESH Final Oxacillin Resistant >=4 ug/mL UMESH Final Tetracycline Susceptible <=1 ug/mL UMESH Final Trimethoprim-sulfamethoxazole Susceptible <=10 ug/mL UMESH Final Vancomycin Susceptible 1 ug/mL UMESH Final CULTURE ANAEROBE [[id number]] (Normal) Collected: 02/04/191128 Lab Status: Preliminary result Specimen: Micro from Hip Updated: 02/06/1934 Culture Culture in progress Narrative: Surgical Description: Right Hip CULTURE TISSUE+GRAM STAIN [[id number]] (Abnormal) (Susceptibility) Collected: 02/04/191128 Lab Status: Final result Specimen: Micro from Hip Updated: 02/06/19 1137 Culture Rare Staphylococcus aureus methicillin-resistant (MRSA) Gram Stain Moderate Polymorphonuclear cells Heavy Red blood cells No organisms seen Narrative: Methicillin-resistant Staphylococci (MRSA) are resistant to all currently available beta-lactam antibiotics with the exception of the newer cephalosporins with anti-MRSA activity. Contact precautionsrequired. Surgical Description: Right Hip Susceptibility Staphylococcus aureus methicillin-resistant (MRSA) (1) Antibiotic Interpretation Microscan Method Status Ciprofloxacin Resistant >=8 ug/mL UMESH Final Clindamycin Resistant >=4 ug/mL UMESH Final Doxycycline Susceptible <=0.5 ug/mL UMESH Final Erythromycin Resistant >=8 ug/mL UMESH Final Gentamicin Susceptible <=0.5 ug/mL UMESH Final Inducible Clindamycin Resistance Neg NEG ug/mL UMESH Final Levofloxacin Resistant >=8 ug/mL UMESH Final Linezolid Susceptible 2 ug/mL UMESH Final Oxacillin Resistant >=4 ug/mL UMESH Final Tetracycline Susceptible <=1 ug/mL UMESH Final Trimethoprim-sulfamethoxazole Susceptible <=10 ug/mL UMESH Final Vancomycin Susceptible 1 ug/mL UMESH Final CULTURE BLOOD [[id number]] Collected: 02/02/192237 Lab Status: Final result Specimen: Blood Peripheral Updated: 02/08/19230 Culture No growth day 5 CULTURE BLOOD [[id number]] Collected: 02/02/192237 Lab Status: Final result Specimen: Blood Peripheral Updated: 02/08/19230 Culture No growth day 5 Physical Exam General appearance: awake, cooperative, NAD Physical Exam General appearance: Awake, cooperative, no acute distress, CPAP in place ?? 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 Alexander 1. In light of the patient's above mentioned injuries, and following discussion of various treatment options, surgical management was elected for treatment of his injury. Following discussion of the indications, contraindications, risks, benefits, and potential complications the patient agreed to the procedure and consent was obtained. Consent signed and in chart. Correct surgical site is marked 2. Proceed to OR today for I&D Right hip, possible component exchange, possible revision arthroplasty 3. Continue NPO, sips with meds OK 4. Hold DVT chemoprophylaxis 5. Pre-op Ancef (2 grams) and continue for 24 hours, preop Gentamycin ordered. 6. Type and screen 7. Continue NWB RLE 8. Plan for postop PT/OT 9. Continue care per Medicine 10. Orthopedics will continue to follow. Please page with any questions or concerns Alberto Shell MD 02/08/2019 6:05 AM Associated attestation - Larry Alexander MD - 02/08/2019 10:41 AM CDT Patient seen and examined, agree with above resident note. Site marked This patient? s prior H&P was reviewed, the patient was examined and no change has occurred in the patient's condition since the prior H&P was completed. Briefly, this is a 68 year old male with right hip pain secondary to infected right hip arthroplasty, likely acute hematogenous infection as he has had symptoms < 2 weeks S/P previous irrigation and debridement and wound vac placement . Exam reveals right hip limitation of and pain with ROM. Complete examination/plan noted above. I personally examined the patient and edited and agree with the above findings in the note Assessment/Plan: Conservative treatment for infected right hip arthroplasty including >12 weeks of PT, NSAIDS, glucosamine/Vit D, ambulatory aids, weight loss, and corticosteroid injections will fail and risk systemic sepsis. Further conservative treatment which has been unsuccessful is contraindicated as it would lead to further debility and worsening deconditioning. Symptoms of pain, difficulty ambulating, increased risk of falling due to poor range of motion and instability/locking/and catching, difficulty standing, difficulty with stair climbing and difficulty with personal hygiene areinterfering with patient's lifestyle. Will proceed with previously discussed repeat irrigation and d ebridement of infected right hip arthroplasty with modular component revision and closure vs removal of implants if loose and placement of antibiotic cement spacer, possible repeat wound vac application Risks, benefits, and alternatives to the surgical [...] and had active participation as well. Patient and his understood the treatment plan and all questions were answe red. I had a long discussion with the patient and his again about surgical options for his infected right hip. We discussed MRSA and its difficulty with eradication if this is a chronic problem.We discussed that he has only been having symptoms for about 2 weeks. We discussed that this would be amenable to component retention with head and polyethylene exchange if it is truly a two- week long infection but MRSA does decrease the results of component retention. We also discussed full component removal with resection arthroplasty and likely extended trochanteric osteotomy with nonweightbearing for 3 months with an antibiotic cement spacer with repeat reimplantation after about 3 months once his laboratory evaluation and aspiration has returned to normal with a negative culture. We alsodiscussed component retention with lifetime antibiotic suppression. The patient and his chooseto proceed with the above procedures with likely component retention. Patient and his understood the treatment plan and different options and all questions were answered. The patient has the following complex medical factors: No current facility-administered medications on file prior to encounter. Current Outpatient Medications on File Prior to Encounter Medication Sig Dispense Refill acetaminophen (TYLENOL) 325 MG tablet Take 650 mg by mouth every 4 hours as needed albuterol (PROVENTIL;VENTOLIN) (5 MG/ML) 0.5% nebulizer solution 2.5 mg. 1 Box 11 Ascorbic Acid 500 MG Take 500 mg by mouth 2 times daily aspirin (ASPIRIN) 81 MG tablet Take 81 mg by mouth DAILY. baclofen (LIORESAL) 10 MG tablet Take 10 mg by mouth 2 times daily 0 bumetanide (BUMEX) 0.5 MG tablet Take 0.5 mg by mouth 2 times daily diphenhydrAMINE (BENADRYL) 25 MG capsule Take 25 mg by mouth every 6 hours as needed for Itching ELIQUIS 5 MG tablet Take 5 mg by mouth 2 times daily 3 ferrous sulfate 325 (65 FE) MG tablet Take 325 mg by mouth daily with breakfast lidocaine (LIDODERM) 5 % patch Apply 2 patches to skin DAILY. 10 patch 11 metoprolol succinate XL 24hr (TOPROL XL) 50 MG tablet Take 50 mg by mouth once daily nystatin (MYCOSTATIN) 019413 UNIT/GM powder APPLY TO AFFECTED AREA TWICE A DAY 3 omeprazole (PRILOSEC) 40 MG capsule Take 40 mg by mouth daily before breakfast Oxygen Use 1 L as directed 1 LITER AT BEDTIME AND PRN roflumilast (DALIRESP) 500 MCG tablet Take 500 mcg by mouth once daily SYMBICORT 160-4.5 MCG/ACT inhaler INHALE 2 PUFFS BY MOUTH TWICE A DAY 6 tamsulosin (FLOMAX) 0.4 MG capsule Take 0.4 mg by mouth at bedtime 1 triamcinolone acetonide (KENALOG) 0.1 % cream APPLY A THIN LAYER TOPICALLY FOUR TIMES DAILY TO THE AFFECTED AREA 3 vitamin B-12 (CYANOCOBALAMIN) 500 MCG tablet Take 500 mcg by mouth once daily vitamin D, ergocalciferol, (DRISDOL) 54208 UNITS capsule Take 50,000 Units by mouth every 7 days 0 zinc sulfate (ZINCATE) 50 MG capsule Take 220 mg by mouth once daily Past Medical History: Diagnosis Date Actinic keratosis Arthritis Asthma Atrial fibrillation, chronic Basal cell carcinoma CAD (coronary artery disease) Clotting disorder Colitis COPD (chronic obstructive pulmonary disease) Diabetes DVT (deep venous thrombosis) Dyslipidemia Eczema GERD (gastroesophageal reflux disease) Heart attack High blood pressure Hx of blood clots Keloid Kidney disease 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) culture positive 07/29/2017 07/29/17-Disc- tissue culture MRSA Obstructive sleep apnea VALENTINA (obstructive sleep apnea) Other cirrhosis of liver Peripheral neuropathy Psoriasis Seizures Squamous cell carcinoma Past Surgical History: Procedure Laterality Date Cataract Removal Bilateral ENDOSCOPY, UPPER N/A 09/15/2017 N/A; ESOPHAGOGASTRODUODENOSCOPY (EGD) DIAGNOSTIC GENERAL SURGERY PROCEDURE Right 02/04/2019 Right; PLACEMENT WOUND VAC HX JOINT REPLACEMENT HX JOINT REPLACEMENT right hip 2005, left hip 2008 INCISION AND DRAINAGE Right 02/04/2019 Right; IRRIGATION AND DEBRIDEMENT WOUND HIP Tracheostomy N/A 09/13/2017 N/A; TRACHEOSTOMY 15 Point review of systems was otherwise negative as reviewed today. Social History Occupational History Not on file Tobacco Use Smoking status: Former Smoker Last attempt to quit: 06/06/1981 Years since quittin.7 Smokeless tobacco: Never Used Substance and Sexual Activity Alcohol use: No Drug use: No Sexual activity: Not on file Family History Problem Relation Age of Onset Coronary Artery Disease Mother age 65 Cirrhosis Father Cancer - Breast Neg Hx CVA Neg Hx Hemophilia Neg Hx Cancer - Other Neg Hx Eczema Neg Hx Psoriasis Neg Hx Cancer - Skin, Non Melanoma Neg Hx Cancer - Skin, Melanoma Neg Hx . Please see resident's note for further details. * Parth Watson MD - 02/07/2019 9:47 PM CDT Pt has intermittent A fib with RVR up to 120s at times No SSCP or SOB per nurse His Toprol XL has been on hold Start Lopressor 25 mg BID and follow His anticoagulation is on hold for the OR in the AM If he has sustained a fib with RVR will transfer to cardiac tele for rate control * Caridad Bernstein RN - 02/07/2019 7:10 PM CDT Pt A&Ox2 and resting comfortably in bed, more confused today. C/o pain to buttocks and right hip relieved by rest and tylenol. C/o constipation, lactulose and senna given. Finally had a liquid bowel movement. No further complaints at this time. Very poor appetite, c/o nausea relieved by prn zofran. Will be NPO at midnight for surgery tomorrow. Mod assist w/ walker to mobilize. Voiding per urinal w/o difficulty. Used BSC twice today. Wound vac to right hip intact. SCDs on. IVF infusing. VSS.Call light in reach and will continue to monitor. at bedside most of day. * Sathya Cheney, PT - 02/07/2019 5:14 PM CDT Nursing ok'd to see patient for physical therapy Subjective: Pleasant , receptive , delayed processing , decreased concentration / attention , spouse present. Requesting off the commode back to the bed . Moaning about R hip pain. Physical Therapy Treatment Summary for today: Pain Rating and Location: unrated R hip pain Bed Mobility training Sit to Supine: Maximum Assistance Max cues for sequencing Transfer training Sit to Stand: Maximum Assistance Stand to Sit: Maximum Assistance Chair to Bed: Maximum Assistance to Right(commode to bed ) Type of Transfer: Stand Pivot Transfer R LE WBAT Walker support , gait belt Max cues for sequencing , hand/foot placement Ambulation training Distance Ambulated: (steps to the chair ) Ambulation: Assistive Device: Gait Belt;Walker-2 Wheeled Ambulation: Level of Assistance: Maximum Assistance Ambulation: Gait Deviations: Antalgic;Maira - Decreased;Heel Strike - Decreased;Hip/knee flexion during swing phase-- decreased;Increased Trunk Flexion;Push Off - Decreased;Stance Time - Decreased;Step Length - Decreased;Weight Shift - Decreased Balance : Poor static / dynamic stand balance with walker support Up to chair : tolerated 4 hours up to the chair Vitals: SpO2: 98 % Pulse: 89 Resp: 20 BP: 119/71 Education Provided: Role of PT; importance of increasing activity as tolerated;pursed lip and deep breathing techniques Please refer to Filed Flowsheet PT Treatment for further details. All vitals stable throughout visit; All lines, monitors, IV's, equipment in place and intact pre and post visit. Nursing aware of all the above Call light in reach upon PT departure. A: Max a for bed mobility, transfers and limited ambulation with max cues for sequencing and safetyas noted above . Decreased concentration / attention along with delayed processing noted throughoutthe session . Recommendations: Patient would benefit from continued physical therapy to address all the above deficits in functional mobility/ambulation/strength to return to previous living situation. Post discharge PT rec dependent on post surgical outcome from a functional mobility standpoint , Initially PT seemed appropriate but that may change. Sathya Cheney , PT Ascom [phone] If this is the last Physical Therapy visit, this serves as the discharge summary. * Sathya Cheney PT - 02/07/2019 2:30 PM CDT Nursing ok'd to see patient for physical therapy Subjective: present and stated that patient seems more confused today . Patient agreeable to get up to the commode. Physical Therapy Treatment Summary for today: Pain Rating and Location: unrated R hip pain Transfer training Sit to Stand: Maximum Assistance( x 1 , mod x 1 ) Stand to Sit: Maximum Assistance( x 1 , mod x 1 ) Chair to Bed: Maximum Assistance to Left( x 1 , mod x 1, chair to commode ) Type of Transfer: StandPivot Transfer Max cues for sequencing , for foot/hand placement R LE WBAT Gait belt and walker support Balance : poor stand balance with walker support Vitals: SpO2: 98 % Pulse: 89 Resp: 20 BP: 119/71 Education Provided: Role of PT; importance of increasing activity as tolerated;pursed lip and deep breathing techniques Please refer to Filed Flowsheet PT Treatment for further details. All vitals stable throughout visit; All lines, monitors, IV's, equipment in place and intact pre and post visit. Nursing aware of all the above Call light in reach upon PT departure. A : Max/mod a for transfers as noted above with max cues for sequencing, hand / foot placement . Delayed processing again this afternoon Recommendations: Patient would benefit from continued physical therapy to address all the above deficits in functional mobility/ambulation/strength to return to previous living situation Sathya Cheney , PT Ascom [phone] If this is the last Physical Therapy visit, this serves as the discharge summary. * Maria Guadalupe Roberts RN - 02/07/2019 1:44 PM CDT Case Management Progress Note Anticipated level of care at discharge: Unknown Anticipated Discharge Date: TBD Transportation at Discharge: Family/Ambulance/SW following Comments: to return to OR tmrw - repeat I/D to RIght Hip, iv abts, pt/ot, pain control. Wound vac, will review pt/ot notes after OR to formulate an appropriate discharge plan. Maria Guadalupe Roberts RN [facility] X [phone] * Fay Otero MSW - 02/07/2019 11:57 AM CDT Pt scheduled for OR on 02/08/19. PER rounds pt may need some level of rehab. OUTREACH ANALYST will continue to follow and coordinate d/c. * Sathya Cheney, PT - 02/07/2019 11:23 AM CDT Nursing ok'd to see patient for physical therapy Co Rx with OT secondary to level of assist needed and decreased activity tolerance Subjective:Pleasant, cooperative and receptive . C/o nausea and pain R hip. Appears less alert today with delayed processing to questions asked and following instructions Physical Therapy Treatment Summary for today: Pain Rating and Location: unrated R hip pain Bed Mobility training Supine to Sit: Maximum Assistance;X 2 Max cues for sequencing Transfer training Sit to Stand: Moderate Assistance;X 2 Stand to Sit: Maximum Assistance;X 2 Type of Transfer: Stand Pivot Transfer Toilet Transfers: Moderate Assistance;X 2(several steps with wwr to L) Max cues for sequencing R LE WBAT Ambulation training Distance Ambulated: 5 FEET Ambulation: Assistive Device: Gait Belt;Walker-2 Wheeled Ambulation: Level of Assistance: Moderate Assistance R LE WBAT Max cues for sequencing , to stand erect and stay closer to the walker box Up to chair post therapy session Balance : poor static / dynamic gait balance with walker support Activity tolerance : poor , frequent rests Vitals: SpO2: 98 % Pulse: 100 Resp: 18 BP: 118/52 Education Provided: Role of PT; importance of increasing activity as tolerated;pursed lip and deep breathing techniques Please refer to Filed Flowsheet PT Treatment for further details. All vitals stable throughout visit; All lines, monitors, IV's, equipment in place and intact pre and post visit. Nursing aware of all the above Call light in reach upon PT departure. A : Demonstrated decreased alertness with delayed processing . Dependent bed mobility and transferswith limited gait as noted above. Recommendations: Patient would benefit from continued physical therapy to address all the above deficits in functional mobility/ambulation/strength to return to previous living situation. Post discharge PT recs deferred at this time until after surgical procedure Sathya Cheney , PT Ascom [phone] If this is the last Physical Therapy visit, this serves as the discharge summary. * Sathya Cheney, PT - 02/07/2019 11:22 AM CDT Problem: Therapy - Total Hip Arthroplasty Goal: STG - Patient will maintain weight bearing status with all transfers and ambulation. Description NWB R LE at eval Outcome: Ongoing Goal: STG - Patient will maintain hip precautions with all transfers and ambulation. Description R Hip PHP's as indicated Outcome: Ongoing Goal: STG - Patient will ambulate Description 30 ft with ww with R LE NWB with min a Outcome: Ongoing Goal: STG - Patient will negotiate ___ step(s). Description 5 steps x 2 with rail(s) with min a Outcome: Ongoing Goal: STG - Patient is independent with home exercise program. Outcome: Ongoing Goal: TH STG - Able to move from supine to sitting. Description And perform all functional bed mobility with SBA Outcome: Ongoing Goal: TH STG - Able to transfer sit to stand. Description And perform all functional transfers with min a Outcome: Ongoing * Tammy Cardona, OT - 02/07/2019 10:22 AM CDT Occupational Therapy Treatment Summary Chart review and OT eval complete, nursing aware of treatment session. Precautions/Restrictions: Per verbal orders given to PT (02/06/19) pt is RLE WBAT and no PHP at this time. Resident has RLE NWB in most current note, however, will take Dr. Alexander's verbal order as correct. Tentative surgery tomorrow (02/08/19) Subjective: Pt agreeable to OT session. No complaints at this time Functional Transfers and Mobility Supine to Sit: Maximum Assistance;X 2 Sit to Stand: Moderate Assistance;X 2 Stand to Sit: Maximum Assistance;X 2 Type of Transfer: Stand Pivot Transfer Toilet Transfers: Moderate Assistance;X 2(several steps with wwr to L); turned past commode and needed max A for positioning on BSC ADL Tasks: Feeding: Minimal Assistance(drops cups/soda can; poor appetite) Toileting: Maximal Assistance(1 person to assist with standing; 1 person for hygiene) Activity Tolerance/Vital Signs: Activity Tolerance: Requires rest breaks Level of Consciousness-Adult: Alert Cognition: Attention/concentration-normal for age;Processing-delayed;Follows one step commands;Safety awareness-appropriate;Judgement-appropriate Intervention: OT session focused on increasing ADL/functional transfer independence and safety. Pt sitting in bed upon OT arrival. Pt more confused today compared to yesterday's session; increased processing time needed and pt has poor awareness of surrounds. Does not consistently follow commands. Pt continues to need 2 person assist for functional mobility with wwr, however, able to increase independence slightly 2/2 RLE WBAT. Pt sat a prolonged time on BSC; unable to have BM but did urinate. Pt resting in recliner at end of session. Please refer to the Filed Flowsheet OT Treatment for further details. Refer to care plan for goals. Recommendations: Pt would benefit from continued OT (SNF) at d/c. At this time, pt has a strong preference to return home. It is concerning pt's mentation has declined since yesterday. Pt will need 2person assist for all transfers and ADLs at this time. It is unsafe at this time for pt to return home. Progress as tolerated. All vitals stable throughout visit; all lines, monitors, IV's and equipment in place and intact preand post visit. Nursing notified. If this is the last Occupational Therapy visit, this serves as the discharge summary. MARIAD EL CARMEN Loving, OTR/L [phone] * Alberto Shell MD - 02/07/2019 9:41 AM CDT [facility] Orthopedic Surgery Daily Progress Note José Miguel Keys, 68 year old, male : 1950 CSN: [id number] Primary Care Physician: Briana Medeiros MD - Admission Date/Time: 02/02/2019 8:57 PM -Today's Date/Time: 02/07/2019 9:41 AM Subjective Patient seen and examined this AM on rounds. No new problems or issues overnight. Pain controlled this morning. Denies any new numbness/paresthesias. Plan for OR tomorrow. Please make NPO at midnightand hold Lovenox at midnight Vitals Temp (24hrs), Av.3 ??F (36.8 ??C), Min:97.6 ??F (36.4 ??C), Max:99 ??F (37.2 ??C) BP 118/52 Pulse 100 Temp 99 ??F (37.2 ??C) (Axillary) Resp 18 Ht 5' 11 (1.803 m) Wt 208 lb (94.3 kg) SpO2 98% BMI 29.01 kg/m2 Labs Recent Labs Component Name 02/07/19 0409 02/06/19 0419 02/05/19 0238 WBC 10.0 9.1 10.6 HGB 8.0* 7.9* 8.5* HCT 27.5* 27.5* 27.9* PLTCOUNT 176 189 220 Recent Labs Component Name 02/04/19 0737 02/03/19 0106 10/10/18 1515 INR 1.0 1.1 1.1 Cultures Wound Cultures: 02/04/19 OR cultures with MRSA Physical Exam General appearance: Awake, cooperative, no acute distress, CPAP in place Right lower extremity: -Inspection: W[place] to hip intact and holding suction -Tenderness: not assessed -ROM: not assessed -Motor: Able to plantarflex ankle, able to dorsiflex ankle, able to plantarflex great toe, able to dorsiflex great toe -Sensation: SILT to dorsal and plantar foot -Vascular: 2+ DP pulse with toes warm and well perfused Assessment/Plan Active Problems: 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 Alexander 1. Activity/Weight-bearing status: NWB RLE 2. Current Dispo: OR 3. Anticoagulation Status: Please hold dvt prophylaxis at midnight 4. Antibiotics: Vancomycin/cefepim 5. Wound care: Continue W[place] 6. Diet: NPO at midnight 7. PT/OT 8. Pain Control 9. Orthopedics will continue to follow. Please page with any questions or concerns Alberto Shell MD 02/07/2019 9:41 AM * Blaire Meek MD - 02/07/2019 8:18 AM CDT 02/06/2019 6:08 PM Admitted: 02/02/2019 8:57 PM HD: 5 CC: Right hip pain Summary:??68 year old??white male with hx CAD, atrial fibrillation, prior DVT, COPD, cirrhosis, OSAwho presents with 1 week of right hip pain with associated swelling and redness of the region.He went to [facility] and workup there including CT of the right hip revealed suspected abscess for which he was transferred here for further evaluation by [facility] Orthopedics. Has history of MRSA bacteremia and epidural abscess as well. He is community dwelling living with his . Current symptoms: Last BM 02/02. In moderate pain, requesting lactulose. More confused today. states he responded [place] to who is the president. Still reporting nausea. No cough noted during exam.No sob. PE: Filed Vitals: 02/07/19 0542 02/07/19 0857 02/07/19 0936 02/07/19 1234 BP: 119/65 118/52 119/71 Pulse: 77 96 100 89 Resp: 16 Temp: 97.6 ??F (36.4 ??C) 99 ??F (37.2 ??C) 98 ??F (36.7 ??C) TempSrc: Oral Axillary Oral SpO2: 98% 96% 98% 98% Weight: Height: I/O/T/U: 3358/[id number]/[id number]. Gen:ASA, mild distress. Does not appear in pain. Oriented to self, month HEENT: NCAT CV: RRR, No m/g/r, no ectopy Carol: No adventitial sounds or wheezes, basilar crackles improved with cough Abd: benign Neuro: nonfocal; proprioception, gait not tested. Reflexes intact Psych: approp. No Si/Hi Skin: nl, senescent changes. No rashes, petechia, purpura. MSK: DELICIA Bilat. Nl personal insurance advisor appreciated. Recent Labs Component Name 02/07/19 0409 02/06/19 0419 02/05/19 0238 SODIUM 135* 136 136 POTASSIUM 4.3 4.7 4.2 CHLORIDE 104 106 107 CO2 23 23 22* BUN 17 20 CREATININE 1.20* 1.23* 1.24* GLUCOSE 92 110* 118* CALCIUM 9.0 8.8 8.6 Recent Labs Component Name 02/03/19 0106 ALBUMIN 3.1* ALT 21 AST 20 Recent Labs Component Name 02/07/19 0409 02/06/19 0419 02/05/19 0238 WBC 10.0 9.1 10.6 HGB 8.0* 7.9* 8.5* HCT 27.5* 27.5* 27.9* PLTCOUNT 176 189 220 MEDICATIONS FOR CURRENT ENCOUNTER: SCHEDULED MEDICATIONS: And albuterol (PROVENTIL;VENTOLIN) (2.5 MG/3ML) 0.083% nebulizer solution 2.5 mg, Inhalation, q6h ascorbic acid (VITAMIN C) tablet 500 mg, Oral, BID aspirin chew tablet 81 mg, Oral, QDAY budesonide-formoterol (SYMBICORT) 160-4.5 MCG/ACT inhaler 2 puff, Inhalation, BID cefepime (MAXIPIME) 2,000 mg in 0.9% NaCl 50 mL IVPB, Intravenous, q8h cyanocobalamin (VITAMIN B-12) tablet 500 mcg, Oral, QDAY enoxaparin (LOVENOX) injection 30 mg, Subcutaneous, q12h morphine CR 12hr (MS CONTIN) tablet 15 mg, Oral, q12h pantoprazole EC (PROTONIX) tablet 40 mg, Oral, QDAY polyethylene glycol 3350 (MIRALAX) packet 17 g, Oral, QDAY scopolamine (TRANSDERM-SCOP) 1 patch, Transdermal, q72h scopolamine patch placement confirmation, Transdermal, BID senna-docusate (SENOKOT-S) tablet 2 tablet, Oral, QDAY tamsulosin (FLOMAX) capsule 0.4 mg, Oral, AT BEDTIME vancomycin (VANCOCIN) IV dose per pharmacy, Does not apply, DIRECTED vancomycin HCl (VANCOCIN) 1,500 mg in 0.9% NaCl 500 mL IVPB, Intravenous, q24h zinc sulfate (ZINCATE) capsule 220 mg, Oral, QDAY ?? [COMPLETED] furosemide (LASIX) injection 40 mg, Intravenous, Once CONTINUOUS MEDICATIONS: ?? lactated ringers infusion, Intravenous, Continuous PRN MEDICATIONS: acetaminophen (TYLENOL) tablet 650 mg, Oral, q6h PRN baclofen (LIORESAL) tablet 10 mg, Oral, BID PRN benzonatate (TESSALON) capsule 200 mg, Oral, TID PRN bisacodyl (DULCOLAX) suppository 10 mg, Rectal, QDAY PRN dextrose IV 12.5-25 g, Intravenous, PRN fentaNYL (PF) (SUBLIMAZE) injection 25 mcg, Intravenous, q4h PRN glucagon (GLUCAGEN) injection 1 mg, Intramuscular, PRN glucose (Diabetic Use) oral gel, Oral, PRN lactulose (CHRONULAC) solution 20 g, Oral, TID PRN ondansetron (ZOFRAN) injection 4 mg, Intravenous, q6h PRN ?? oxyCODONE-acetaminophen (PERCOCET) 10-325 MG tablet 1 tablet, Oral, q4h PRN A/P: Sepsis TME Constipation Infected right total hip arthroplasty status post wound VAC and lavage N/V Anemia chronic disease CKD Chronic AFib VALENTINA --continue antibiotics. Pharmacy dosing vancomycin. Tolerating wound vac ---may be getting overzealous rehydration. Will slow IVF down. --more aggressive bowel regimen, lactulose --discontinue scop patch. Likely ach induced delirium. Delirium precautions --transfuse <7 --Repeat Lavage in AM --avoid nephrotoxic meds --inc activ as kip --SNF/Rehab at d/c --cont bipap qhs Patient's Functional Baseline prior to admit: community dwelling Discharge Planning to Next Site of Care: Based on clinical conditions and medical necessities and after reviewing PT/OT evaluation, family support, patient wishes, and discussion with multidisciplinary care team (quality assurance project manager, OUTREACH ANALYST, CSN, Therapy services, Pharmacy, and recovery coordinator) the current recommendation for the most appropriate discharge destination at this time is: [facility] (SNF) Anticipated discharge date: TBD Disposition: Due to medical issues in the assessment and plan, continued hospitalization will be required. Blaire Meek MD Note is dictated utilizing voice recognition software. Unfortunately this leads to occasional typographical errors. I apologize in advance if the situation occurs. If questions occur please contact me for clarification. * Bryanna Jc, PharmD - 02/07/2019 7:24 AM CDT Vancomycin Per Pharmacy (Day 5) 68 year old male receiving vancomycin dosed serially for the management of infected right ARNALDO. Other Anti-infectives: cefepime Vitals: Height: 5' 11 (180.3 cm) (02/02/192124) Weight: 94.3 kg (208 lb) (02/02/192124) Temp (24hrs) Max:99.1 ??F (37.3 ??C) Current Labs: Recent Labs Component Name 02/07/19 0409 02/06/19 0419 02/05/19 0238 BUN 17 17 20 CREATININE 1.20* 1.23* 1.24* WBC 10.0 9.1 10.6 Renal: Estimated Creatinine Clearance: 67.2 mL/min (A) (based on SCr of 1.2 mg/dL (H)). Cultures: 02/02 blood cx: NGTD X 2 sets 02/04 tissue (hip) cx: MRSA 02/04 wound (hip) cx: MRSA Levels: Recent Labs Component Name 02/07/19 0409 02/06/19 0419 02/05/19 0238 02/04/19 1412 07/26/17 0601 07/24/17 0508 VANCORNDM 20.9 19.2 21.8 - - - VANCTROUGH - - - 28.6* 17.1 20.8* Vancomycin trough goal:15-20 mcg/mL WBC and SrCr WNL and stable. Based off of levels, will start patient on 1500mg q24h. Will obtain a vancomycin level on 02/09. Patient's antibiotics are set to stop on 02/09. Based on type of infection, stop date may need to be extended. Patient is also on cefepime. Since cultures have grown only MRSA, consider stopping cefepime. Will continue to monitor and will adjust regimen if necessary. Bryanna Jc, PharmD * Judy Rondon - 02/07/2019 6:13 AM CDT Pt A&Ox4. C/o pain to right hip relieved by Percocet. No further complaints at this time. Tolerating cardiac diet, scopolamine patch placed last night, since placement no nausea experienced. Pt is able to bear weight to right leg using a walker to ambulate. Voiding per urinal w/o difficulty. Ptstill has not had a bowel movement. Pt wore BIPAP through the night. Wound vac in place, seal mainta ined throughout shift. Dressing to right hip clean dry and intact. SCDs on. VSS. Call light in reach and will continue to monitor. Judy Rondon 02/07/2019 6:14 AM * Caridad Bernstein, RN - 02/06/2019 7:09 PM CDT Pt A&Ox4 and resting comfortably in bed. Sat up in chair. C/o pain to right hip relieved by prnmedication. C/o nausea and constipation. Miralax and dulcolax suppository given. PRN zofran given for nausea. Did have emesis throughout the day. No further complaints at this time. Tolerating cardiac diet, denies nausea. Voiding per urinal or bedpan/BSC w/o difficulty. Wound vac to right hip clean dry and intact, canister changed this evening. SCDs on. VSS. IVF infusing per AUG. Peripheral IV restarted due to old one leaking/painful. Call light in reach and will continue to monitor. Consent filled out for OR on . * Caridad Bernstein RN - 02/06/2019 7:09 PM CDT Problem: Isolation Goal: Prevent Transmission of Infection Outcome: Ongoing Problem: Pain/Discomfort Goal: Patient exhibits reduced pain/discomfort as evidenced by pain scores Outcome: Ongoing Goal: Patient uses pharmacological and non-pharmacological pain management strategies. Outcome: Ongoing Goal: Patient verbalizes acceptable level of pain relief and ability to engage in desired activity. Outcome: Ongoing Problem: Fall Risk Goal: Patient will remain free of falls Outcome: Ongoing Problem: Isolation Goal: Prevent Transmission of Infection Outcome: Ongoing Problem: Impaired Gas Exchange Goal: Resp rate/effort will be within specified limits Outcome: Ongoing Problem: Nausea/Vomiting Goal: Patients functional goal is met Outcome: Ongoing Problem: Elimination--Bowel Goal: Elimination patterns are normal or improving Outcome: Ongoing * Sathya Cheney, PT - 02/06/2019 5:21 PM CDT Treatment session : 3:25 pm- 3:40 pm Weightbearing status change per verbal Dr. Alexander in person 3:12 pm : R LE WBAT at this time No PHP s at this time Subjective: Alert , receptive and cooperative. Physical Therapy Treatment Summary for today: Pain Rating and Location: unrated R hip Bed Mobility training Sit to Supine: Maximum Assistance;X 2 Transfer training Sit to Stand: Moderate Assistance;X 2 Stand to Sit: Moderate Assistance;X 2 Chair to Bed: Moderate Assistance to Left;X 2(commode to bed ) Type of Transfer: Stand Pivot Transfer R LE WBAT Walker support . Gait belt Balance : P+ static / dynamic stand balance with walker support with R LE WBAT Vitals: SpO2: 93 % Pulse: 98 Resp: 20 BP: 140/78 Education Provided: Role of PT; importance of increasing activity as tolerated;pursed lip and deep breathing techniques; R LE WBAT Please refer to Filed Flowsheet PT Treatment for further details. All vitals stable throughout visit; All lines, monitors, IV's, equipment in place and intact pre and post visit. Nursing aware of all the above Call light in reach upon PT departure. A : Improved standing balance and improved transfers as noted above with R LE WBAT with walker support Recommendations: Patient would benefit from continued physical therapy to address all the above deficits in functional mobility/ambulation/strength to return to previous living situation. PT rec as patient returns home Sathya Cheney , PT Ascom [phone] If this is the last Physical Therapy visit, this serves as the discharge summary. * Sathya Cheney, PT - 02/06/2019 5:13 PM CDT Treatment session : 2:45-3:00 pm Subjective: Pleasant , alert, receptive and requesting to use the commode Physical Therapy Treatment Summary for today: Pain Rating and Location: 01/13 R hip Transfer training Sit to Stand: Maximum Assistance;X 2 ( chair to walker ) Stand to Sit: Maximum Assistance;X 2 ( walker to commode ) Type of Transfer: Stand Pivot Transfer Toilet Transfers: Maximum Assistance;X 2(chair to commode ) R LE NWB with gait belt and walker support Stand balance : poor static/dynamic stand balance with walker support with R LE NWB Vitals: SpO2: 93 % Pulse: 98 Resp: 20 BP: 140/78 ICU Mobility Score: RASS during PT visit: Education Provided: Role of PT; importance of increasing activity as tolerated;pursed lip and deep breathing techniques Handouts Provided: Please refer to Filed Flowsheet PT Treatment for further details. All vitals stable throughout visit; All lines, monitors, IV's, equipment in place and intact pre and post visit. Nursing aware of all the above Call light in reach upon PT departure. A: Able to comply with R LE NWB . Max a of for transfers as noted above. Recommendations: Patient would benefit from continued physical therapy to address all the above deficits in functional mobility/ambulation/strength to return to previous living situation Sathya Cheney , PT Ascom [phone] If this is the last Physical Therapy visit, this serves as the discharge summary. * Osorio Pineda RCP - 02/06/2019 4:03 PM CDT Mr. Keys will remain on respiratory tx's as ordered. He is on room air, tolerating well. He has a productive cough. RT will continue to monitor. Osorio Pineda Respiratory Care Practitioner 02/06/20194:05 PM * Sathya Cheney, PT - 02/06/2019 3:14 PM CDT Nursing ok'd to see patient for physical therapy Treatment session 10:50-11:20 am Subjective: Pleasant , alert, receptive and cooperative Physical Therapy Treatment Summary for today: Pain Rating and Location: 01/13 R hip Bed Mobility training Supine to Sit: Maximum Assistance(+ mod of 2nd; raised HOB) Transfer training Sit to Stand: Maximum Assistance;X 2 Stand to Sit: Maximum Assistance;X 2 R LE NWB Bed to Chair: Maximum Assistance to Left(+ mod/max of 2nd) Type of Transfer: Stand Pivot Transfer Walker support, gait belt Ambulation training Ambulation: Level of Assistance: Activity Does Not Occur Vitals: SpO2: 100 % Pulse: 94 Resp: 18 BP: 125/72 ICU Mobility Score: RASS during PT visit: Education Provided: Role of PT; importance of increasing activity as tolerated;pursed lip and deep breathing techniques Handouts Provided: Please refer to Filed Flowsheet PT Treatment for further details. All vitals stable throughout visit; All lines, monitors, IV's, equipment in place and intact pre and post visit. Nursing aware of all the above Call light in reach upon PT departure. A : Dependency for bed mobility , transfers and nonambulatory as noted above. Recommendations: Patient would benefit from continued physical therapy to address all the above deficits in functional mobility/ambulation/strength to return to previous living situation Sathya Cheney , PT Ascom [phone] If this is the last Physical Therapy visit, this serves as the discharge summary. * Sathya Cheney, PT - 02/06/2019 3:10 PM CDT Problem: Therapy - Total Hip Arthroplasty Goal: STG - Patient will maintain weight bearing status with all transfers and ambulation. Description NWB R LE at eval Outcome: Ongoing Goal: STG - Patient will maintain hip precautions with all transfers and ambulation. Description R Hip PHP's as indicated Outcome: Ongoing Goal: STG - Patient will ambulate Description 30 ft with ww with R LE NWB with min a Outcome: Ongoing Goal: STG - Patient will negotiate ___ step(s). Description 5 steps x 2 with rail(s) with min a Outcome: Ongoing Goal: STG - Patient is independent with home exercise program. Outcome: Ongoing Goal: TH STG - Able to move from supine to sitting. Description And perform all functional bed mobility with SBA Outcome: Ongoing Goal: TH STG - Able to transfer sit to stand. Description And perform all functional transfers with min a Outcome: Ongoing * Tammy Cardona, OT - 02/06/2019 12:21 PM CDT Occupational Therapy Initial Evaluation OT orders received. Chart reviewed for diagnosis and medical systems review. Nursing consented for OT. Patient consented to participate in therapy. Admission History: 68 y/o male admitted with infected R ARNALDO. Pt s/p R hip I&D and wound vac application on 02/04/19. Tentative plan for return to OR on Precautions: RLE NWB Past Medical History: Diagnosis Date ??? Actinic [...] MRSA (methicillin resistant staph aureus) culture positive 07/29/2017 07/29/17-Disc- tissue culture MRSA ??? Obstructive sleep apnea ??? VALENT[place] (obstructive sleep apnea) ??? Other cirrhosis of liver ??? Peripheral neuropathy ??? Psoriasis ??? Seizures ??? Squamous cell carcinoma Psychosocial: Patient Behaviors: Calm;Cooperative Pt reports having an extended stay in ICU/LTACH Jun-November 2017. Since that point, pt has been needing increased assist with transfers. Pt's assists as needed. He is able to transfer using wwr andmostly uses w/c for daily activities. Does not go to 2nd floor for bathing; reports completing sponge baths. Was back to dressing self. Home Situation: Type of Residence: Private Residence(tri level) Lives with:: Spouse Home Structure: Split Level Steps to Enter: 6(8 steps to next level) Primary Bedroom: Second Floor Primary Bathroom: Second Floor Bathroom : (completes sponge baths on 1st floor) Equipment At Home: Commode-Bedside;Walker-2 Wheeled;Walker-4 Wheeled with Seat;Wheelchair-Standard Prior Level of Function: Mobility: Ambulate-In Home ;With Assistive Device;With Physical Assistance(w wwr) Fallen Within 6 Mos: No Have Help at Home?: Yes, there is help at home now(spouse assist prn) Level of Help Sufficient?: Yes Oxygen at Home: (prn) Activity at Home: Sedentary OBJECTIVE: Cognition: Level of Consciousness-Adult: Alert Cognition: Attention/concentration-normal for age;Processing-delayed;Follows one step commands;Safety awareness-appropriate;Judgement-appropriate Functional Level of Impairment: Functional Level of Comprehension: Supervision, set-up, cues Functional Level of Expression: Supervision, set-up, cues Functional Level of Social Interaction: Supervision, set-up, cues Functional Level of Memory: Supervision, set-up, cues Functional Level of Problem Solving: Supervision, set-up, cues ADLs (Based on observation and clinical judgement): Feeding: Set-up(poor appetite) Oral Facial Hygiene: Stand By Assist(seated; unable to stand at sink) Bathing: Maximal Assistance(seated) Upper Body Dressing: Minimal Assistance Lower Body Dressing: Maximal Assistance Toileting: Maximal Assistance Transfers: Supine to Sit: Maximum Assistance(+ mod of 2nd; raised HOB) Sit to Stand: Maximum Assistance;X 2 Stand to Sit: Maximum Assistance;X 2 Bed to Chair: Maximum Assistance to Left(+ mod/max of 2nd) Type of Transfer: Stand Pivot Transfer Activity Tolerance/Vitals: Activity Tolerance: Requires rest breaks INTERVENTION/ASSESSMENT: Treatment this date: Initial OT evaluation completed including bathing, dressing, grooming, and functional mobility/transfers in addition to BUE ROM/strength testing in order to establish goals for D/C. Pt sitting in bed upon OT arrival; reports feeling nauseous. Pt requires max x2 to attempt standing; able to maintain RLE NWB well with wwr. Has improved ability to complete stand pivot to recliner; continues to need 2 person assist for safety. Pt resting in recliner at end of session. --Problem list: Decreased strength, decreased endurance, decreased balance, impaired functional mobility, decreased coordination, cognitive impairment, impaired cardiopulmonary function, decreased knowledge of condition, decreased pain tolerance, need for family/caregiver training. --Functional limitation: Decreased independence with transfers, [...] RECOMMENDATIONS/PLAN: Pt would benefit from continued OT (SNF vs AR) at d/c to maximize ADL and functional mobility/transfer independence and safety. Pt has had poor experiences post hospital (mostlyat LTACH). Pt and spouse will likely prefer to return home. If pt is able to WB, he likely can be assisted at home. Currently needing max x2 assist. OT will continue to follow during the acute stay. Progress as tolerated. All vitals stable throughout visit; all lines, monitors, IV's and equipment in place and intact preand post visit. Nursing notified. If this is the last Occupational Therapy visit, this serves as the discharge summary. MARIA DEL CARMEN Loving, OTR/L Ascom [phone] * Maria Guadalupe Roberts RN - 02/06/2019 11:39 AM CDT Case Management Initial Assessment Case Management screen completed. Chief Complaint: Right hip pain swelling Insurance: Medicare/[employer] Family Support (name and phone): Extended Emergency Contact Information Primary Emergency Contact: Trinity Keys Address: [address] [place] [address] [place] [address] [facility] Mobile Relation: Spouse Hat Blocking Operator needed? No Anticipated Discharge Date: 02/15/19 Anticipated level of care at discharge: Unknown SNF vs [facility] Prior Level of Functioning: dependent on spouse as caregiver Equipment at Home: Equipment At Home: Commode-Bedside;Walker-2 Wheeled;Walker-4 Wheeled with Seat;Wheelchair-Standard Additional Equipment needed at home (does not have at home now): PCP: [facility] Pharmacy benefit: Yes Discharge Medication Needs: SW Referral: Yes, Fay OUTREACH ANALYST aware/following Transportation home: tbd Transportation to MD appointments: Transportation to Appointments: [facility] recommended and order obtained: If needed at discharge will need order entered in [facility] If patient requires HHC at discharge, he/she requests: patient choice Comments: s/p right hip irrigation and debridement, placement of antibiotic beads, and wound vacuumapplication , IV abts, pt/ot, pain control. BNA: 11 WOOD REPATCHER: 7 Will continue to follow. For any questions or needs please contact: Paraffin Plant Operator Name/Phone number: Maria Guadalupe Roberts RN [facility] X [phone], If this is the last geriatric case managerdata science and iot manager this note serves as discharge summary * Fay Otero MSW - 02/06/2019 11:33 AM CDT Case reviewed during MDR rounds. Pt scheduled for OR on 02/08/19. PER rounds pt may need some level of rehab. OUTREACH ANALYST will continue to follow and coordinate d/c. * Blaire Meek MD - 02/06/2019 7:20 AM CDT 02/06/2019 7:20 AM Admitted: 02/02/2019 8:57 PM HD: 4 CC: Right hip pain Summary:??68 year old??white male with hx CAD, atrial fibrillation, prior DVT, COPD, cirrhosis, OSAwho presents with 1 week of right hip pain with associated swelling and redness of the region.He went to [facility] and workup there including CT of the right hip revealed suspected abscess for which he was transferred here for further evaluation by [facility] Orthopedics. Has history of MRSA bacteremia and epidural abscess as well. He is community dwelling living with his . Current symptoms: Continues to have hip pain but relieved by oral Percocet. Tolerating liquids but reports nausea. Some cough noted. Using home cpap settings. Also c/o constipation, on mod bowel regimen PE: Filed Vitals: 02/05/19 2102 02/06/19 0052 02/06/19 0203 02/06/19 0552 BP: 113/74 110/70 Pulse: 94 94 95 78 Resp: Temp: 98 ??F (36.7 ??C) 98.3 ??F (36.8 ??C) TempSrc: Axillary Axillary SpO2: 97% 100% Weight: Height: Gen:ASA, mild distress. Does not appear in pain HEENT: NCAT CV: RRR, No m/g/r, no ectopy Carol: No adventitial sounds or wheezes, basilar crackles improved with cough Abd: benign Neuro: nonfocal; proprioception, gait not tested. Reflexes intact Psych: approp. No Si/Hi Skin: nl, senescent changes. No rashes, petechia, purpura. MSK: DELICIA Bilbipin. Nl personal insurance advisor appreciated. Recent Labs Component Name 02/06/1941802/05/1923702/04/19 0234 SODIUM 136 136 135* POTASSIUM 4.7 4.2 3.7 CHLORIDE 106 107 106 CO2 23 22* 21* BUN 17 20 21 CREATININE 1.23* 1.24* 1.13 GLUCOSE 110* 118* 114* CALCIUM 8.8 8.6 8.6 Recent Labs Component Name 02/03/19 0106 ALBUMIN 3.1* ALT 21 AST 20 Recent Labs Component Name 02/06/19 04102/05/19 0238 02/04/19 0737 WBC 9.1 10.6 10.6 HGB 7.9* 8.5* 8.7* HCT 27.5* 27.9* 30.0* PLTCOUNT 189 220 212 MEDICATIONS FOR CURRENT ENCOUNTER: ?? SCHEDULED MEDICATIONS: ?? albuterol (PROVENTIL;VENTOLIN) (2.5 MG/3ML) 0.083% nebulizer solution 2.5 mg, Inhalation, q6h ?? ascorbic acid (VITAMIN C) tablet 500 mg, Oral, BID ?? aspirin chew tablet 81 mg, Oral, QDAY ?? budesonide-formoterol (SYMBICORT) 160-4.5 MCG/ACT inhaler 2 puff, Inhalation, BID ?? cefepime (MAXIPIME) 2,000 mg in 0.9% NaCl 50 mL IVPB, Intravenous, q8h ?? cyanocobalamin (VITAMIN B-12) tablet 500 mcg, Oral, QDAY ?? enoxaparin (LOVENOX) injection 30 mg, Subcutaneous, q12h ?? morphine CR 12hr (MS CONTIN) tablet 15 mg, Oral, q12h ?? pantoprazole EC (PROTONIX) tablet 40 mg, Oral, QDAY ?? senna-docusate (SENOKOT-S) tablet 2 tablet, Oral, QDAY ?? tamsulosin (FLOMAX) capsule 0.4 mg, Oral, AT BEDTIME ?? vancomycin (VANCOCIN) IV dose per pharmacy, Does not apply, DIRECTED ?? zinc sulfate (ZINCATE) capsule 220 mg, Oral, QDAY ?? [COMPLETED] vancomycin HCl (VANCOCIN) 1,500 mg in 0.9% NaCl 500 mL IVPB, Intravenous, Once ?? [] lactated ringers IV bolus, Intravenous, Once ?? CONTINUOUS MEDICATIONS: ?? lactated ringers infusion, Intravenous, Continuous ?? PRN MEDICATIONS: ?? acetaminophen (TYLENOL) tablet 650 mg, Oral, q6h PRN ?? baclofen (LIORESAL) tablet 10 mg, Oral, BID PRN ?? dextrose IV 12.5-25 g, Intravenous, PRN ?? fentaNYL (PF) (SUBLIMAZE) injection 25 mcg, Intravenous, q4h PRN ?? glucagon (GLUCAGEN) injection 1 mg, Intramuscular, PRN ?? glucose (Diabetic Use) oral gel, Oral, PRN ?? ondansetron (ZOFRAN) injection 4 mg, Intravenous, Once PRN ?? ondansetron (ZOFRAN) injection 4 mg, Intravenous, q6h PRN ?? oxyCODONE-acetaminophen (PERCOCET) 10-325 MG tablet 1 tablet, Oral, q4h PRN ?? polyethylene glycol 3350 (MIRALAX) packet 17 g, Oral, QDAY PRN A/P: Sepsis Infected right total hip arthroplasty status post wound VAC and lavage Constipation N/V Anemia chronic disease CKD Chronic AFib --continue antibiotics. Wound VAC now as well. --more aggressive bowel regimen --scop patch --transfuse <7 --Repeat Lavage 02/07. --avoid nephrotoxic meds --inc activ as kip --SNF/Rehab at d/c Patient's Functional Baseline prior to admit: community dwelling Discharge Planning to Next Site of Care: Based on clinical conditions and medical necessities and after reviewing PT/OT evaluation, family support, patient wishes, and discussion with multidisciplinary care team (quality assurance project manager, OUTREACH ANALYST, CSN, Therapy services, Pharmacy, and recovery coordinator) the current recommendation for the most appropriate discharge destination at this time is: Custodial Facility (SNF) Anticipated discharge date: TBD Disposition: Due to medical issues in the assessment and plan, continued hospitalization will be required. Blaire Meek MD Note is dictated utilizing voice recognition software. Unfortunately this leads to occasional typographical errors. I apologize in advance if the situation occurs. If questions occur please contact me for clarification. * Larry Alexander MD - 02/06/2019 6:39 AM CDT [facility] Orthopedic Surgery Daily Progress Note José Miguel Keys, 68 year old, male : 1950 CSN: [id number] Primary Care Physician: Briana Medeiros MD - Admission Date/Time: 02/02/2019 8:57 PM -Today's Date/Time: 02/06/2019 6:41 AM Subjective Patient seen and examined this AM on rounds. No new problems or issues overnight. Pain controlled this morning. Denies any new numbness/paresthesias. Plan for OR Vitals Temp (24hrs), Av.3 ??F (36.8 ??C), Min:97.9 ??F (36.6 ??C), Max:98.7 ??F (37.1 ??C) BP 110/70 Pulse 78 Temp 98.3 ??F (36.8 ??C) (Axillary) Resp 22 Ht 5' 11 (1.803 m) Wt 208 lb (94.3 kg) SpO2 97% BMI 29.01 kg/m2 Labs Recent Labs Component Name 02/06/19 0419 02/05/19 0238 02/04/19 0737 WBC 9.1 10.6 10.6 HGB 7.9* 8.5* 8.7* HCT 27.5* 27.9* 30.0* PLTCOUNT 189 220 212 Recent Labs Component Name 02/04/19 0737 02/03/19 0106 10/10/18 1515 INR 1.0 1.1 1.1 Cultures Wound Cultures: 02/04/19 OR cultures with staph a. 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 Alexander 1. Activity/Weight-bearing status: NWB RLE 2. Current Dispo: OR 3. Anticoagulation Status: Lovenox 4. Antibiotics: Vancomycin/cefepim 5. Wound care: Continue WV 6. Diet: regular 7. PT/OT 8. Pain Control 9. Orthopedics will continue to follow. Please page with any questions or concerns Alberto Shell MD 02/06/2019 6:41 AM Patient seen and examined with resident. I confirm history, exam, assessment and plan. In addition I note: I had a long discussion with the patient and his today about surgical options for his infectedright hip. We discussed MRSA and its difficulty with eradication if this is a chronic problem. We discussed that he has only been having symptoms for about 2 weeks. We discussed that this would be amenable to component retention with head and polyethylene exchange if it is truly a two- week long infection but MRSA does decrease the results of component retention. We also discussed full component removal with resection arthroplasty and likely extended trochanteric osteotomy with nonweightbearing for 3 months with an antibiotic cement spacer with repeat reimplantation after about 3 months once hi s laboratory evaluation and aspiration has returned to normal with a negative culture. We also discussed component retention with lifetime antibiotic suppression. The patient and his will discuss and we will proceed on with whatever they choose. We discussed the failure rate of retention with MRSA and needing to go back at a later date for resection arthroplasty. Patient and his understood the treatment plan and different options and all questions were answered. * Judy Rondon - 02/06/2019 6:39 AM CDT Pt A&Ox4. C/o pain to right hip relieved by Percocet. No further complaints at this time. Tolerating cardiac diet, denies nausea. Pt in non weight bearing on right leg. Voiding per urinal w/o difficulty. Pt wore CPAP through the night. Wound vac in place, seal maintained throughout shift. Dressing to right hip clean dry and intact. SCDs on. VSS. Call light in reach and will continue to monitor. Judy Rondon 02/06/2019 6:39 AM * Michelle Pratt MD - 02/05/2019 6:58 PM CDT HOSPITALIST PROGRESS NOTES Patient Name: José Miguel Keys Date of : 1950 Admit date: 02/02/2019 Admitting Physician: Lilly Jurado APRN-COLOR FINISHER Attending Physician: Michelle Pratt MD IP/Observation: Inpatient PCP: Briana Medeiros MD ASSESSMENT AND PLAN: Sepsis POA due to Infected right ARNALDO Plan is for right hip irrigation and debridement, placement of antibiotic beads, wound VAC application on February 04, uneventful post operative period Continue IV abx Vanc, cefepime IV I will monitor Vanc trough levels and renal function for this pt Continue IV pain medications I will monitor his mentation closely Vanc trough level shown to high today, holding the dose I will monitor renal function closely Lovenox for DVT ppx per ortho I will closely monitor H&H closely PAYTON Likely prerenal Continue IVF's Trend am creatinine Hypotension Resolved Likely due to hypovolemia vs medication induced S/p IVF bolus d/w RN As well Chronic Atrial fibrillation Stable Rate controlled Continue lovenox DM2 A1C 5.8 Continue SSI and accuchecks COPD Stable Prn inhalers Hyponatremia Mild Normalized Monitor closely VALENTINA on CPAP ANTICIPATED D/C: TBD Personally discussed at bedside with RN Due to medical issues in the assessment and plan, continued hospitalization will be required. Clinical course: This is a 68 year old white male with hx CAD, atrial fibrillation, prior DVT, COPD, cirrhosis, VALENTINA who presents with 1 week of right hip pain with associated swelling and redness of the region. He denies any fevers, chills, sore throat, nausea, vomiting, diarrhea, abdominal pain, chest pain, dyspnea, headache, syncope, vision loss, dizziness, dysuria. He went to [facility] and workup thereincluding CT of the right hip revealed suspected abscess for which he was transferred here for further evaluation by [facility]. The patient was given IV vanc and cefepime and pain meds and transferred here for evaluation by [facility]. Of note the patient had multiple admissions/hospitali zations in 2018 for pneumonia, MRSA bacteremia and eventual spinal abscess that was surgically drained. He has been out of hospitals since last fall. He uses a walker and lives with his who takes care of him tremendously. Subjective:-- Pain is 6- 8/10, pain meds help mainly IV. No fever or chills. All questions answered to evidence and dissection. Other ROS negative. Objective: Vitals: 02/05/19 1126 02/05/19 1402 02/05/19 1607 02/05/19 1636 BP: 112/53 113/63 Pulse: 87 95 93 63 Resp: 18 18 16 16 Temp: 97.9 ??F (36.6 ??C) 98.5 ??F (36.9 ??C) 98.2 ??F (36.8 ??C) SpO2: 100% 100% 100% 100% Weight: Height: GEN: alert, well appearing, and in no distress HEENT: EOMI, PERRL,dryMM. Neck supple. No thyromegaly LUNGS: Clear to auscultation bilaterally. No abnormal respiratory effort or retraction noted. No w/r/r. CV: irregular rate and rhythm without murmur, gallop or rub. ABD: soft, nontender, nondistended, no hepatomegaly, normal bowel sounds; no CVA tenderness b/l SKIN: Normal to inspection. Warm, dry, supple, with no changes in moles or sores that will not heal. MSK: Tender R hip, limited ROM --> post surg, wound vac is in place, has 150 cc bloody discharge, post operative tenderness and swelling noted. Able to wiggle toes on RLE, sensations pulsations normal NEURO: Intact motor, sensory, cerebellar, and cranial nerve systems PSYCH: The patient is oriented to time, place, and person I have reviewed MAR. ALL LAB AND RADIOLOGY REPORTS HAVE BEEN PERSONALLY REVIEWED BY ME. Labs: Recent Labs Component Name 02/05/19 0238 02/04/19 0737 02/03/19 0106 10/10/18 1515 09/19/17 0243 WBC 10.6 10.6 14.2* 7.1 8.5 RBC 3.08* 3.26* 3.64* 3.94* 2.85* HGB 8.5* 8.7* 9.9* 11.0* 8.1* HCT 27.9* 30.0* 32.9* 34.5* 28.0* MCV 90.6 92.0 90.4 87.6 98.2* MCHC 30.5* 29.0* 30.1* 31.9* 28.9* PLTCOUNT 220 212 241 183 208 NEUTPCT 75.3* - 79.6* - 79.2* LYMPHPCT 5.2* - 4.7* 9.3 - EOSINPCT - - - 4.2 - BASOPHILPCT 0.2 - 0.4 0.6 - GRANSIMMPCT 0.6 - 0.5 - - NEUTABS 7.96* - 11.28* - 6.8 LYMPHABS 0.55* - 0.66* - - BASOABS 0.02 - 0.05 - - Recent Labs Component Name 02/05/19 0238 02/04/19 0234 02/03/19 0106 SODIUM 136 135* 134* POTASSIUM 4.2 3.7 4.3 CHLORIDE 107 106 101 CO2 22* 21* 25 BUN 20 21 19 CREATININE 1.24* 1.13 1.22* GLUCOSE 118* 114* 112* CALCIUM 8.6 8.6 9.5 Recent Labs Component Name 02/03/19 0106 09/15/17 0441 09/11/17 0437 09/06/17 1157 09/04/17 0447 08/26/17 1420 ALBUMIN 3.1* - - - - - - ALKPHOS 304* - - 204* 190* - - ALT 21 - - 10 12 - - AST 20 - - 21 27 - - TBIL 1.0 - - - - - - TPROT 7.0 - - - - - - BNP - 694* 806* - - - 552* - = values in this interval not displayed. Recent Labs Component Name 02/04/19 0617 08/26/17 1420 COLORUA Yellow - CLARITYUA Cloudy* - SPECGRAVUA 1.021 - PHUA 5.0 6.0 PROTEINUA Negative - BLOODUA Negative - LEUKOCYTEUA Negative - NITRITEUA Negative - GLUCOSEUA Negative - KETONEUA Trace* - BILIRUBINUA Negative - UROBILINUA Negative <2.0 RBCUA - 1 Recent Labs Component Name 02/03/19 0413 02/03/19 0106 02/02/19 2238 LACTICACID 0.7 0.8 0.9 No results for input(s): SEDRATE in the last 01456 hours. Recent Labs Component Name 08/15/17 0348 08/09/17 0745 08/05/17 0445 CRP 4.1* 32.0* 14.4* No results for input(s): TROPONIN in the last 73436 hours. No results for input(s): DDIMER in the last 25248 hours. Recent Labs Component Name 07/24/17 0508 04/23/17 1103 TSH 2.518 1.64 Recent Labs Component Name 02/03/19 0106 07/14/17 2212 HGBA1C 5.8 6.3 Recent Labs Component Name 02/04/19 0737 02/03/19 0106 10/10/18 1515 INR 1.0 1.1 1.1 Recent Labs Component Name 02/04/19 0737 02/03/19 0106 10/10/18 1515 PT 11.1 11.3 11.0 Recent Labs Component Name 02/04/19 0737 09/10/17 0549 09/07/17 0428 PTT 26.4 29.7 32.8 Recent Labs Component Name 09/10/17 0557 09/09/17 0841 09/09/17 0422 FIO2 40.0 100.0 100.0 MEDICATIONS FOR CURRENT ENCOUNTER: SCHEDULED MEDICATIONS: albuterol (PROVENTIL;VENTOLIN) (2.5 MG/3ML) 0.083% nebulizer solution 2.5 mg, Inhalation, q6h ascorbic acid (VITAMIN C) tablet 500 mg, Oral, BID aspirin chew tablet 81 mg, Oral, QDAY budesonide-formoterol (SYMBICORT) 160-4.5 MCG/ACT inhaler 2 puff, Inhalation, BID cefepime (MAXIPIME) 2,000 mg in 0.9% NaCl 50 mL IVPB, Intravenous, q8h cyanocobalamin (VITAMIN B-12) tablet 500 mcg, Oral, QDAY enoxaparin (LOVENOX) injection 30 mg, Subcutaneous, q12h morphine CR 12hr (MS CONTIN) tablet 15 mg, Oral, q12h pantoprazole EC (PROTONIX) tablet 40 mg, Oral, QDAY senna-docusate (SENOKOT-S) tablet 2 tablet, Oral, QDAY tamsulosin (FLOMAX) capsule 0.4 mg, Oral, AT BEDTIME vancomycin (VANCOCIN) IV dose per pharmacy, Does not apply, DIRECTED zinc sulfate (ZINCATE) capsule 220 mg, Oral, QDAY [COMPLETED] vancomycin HCl (VANCOCIN) 1,500 mg in 0.9% NaCl 500 mL IVPB, Intravenous, Once ?? [] lactated ringers IV bolus, Intravenous, Once CONTINUOUS MEDICATIONS: ?? lactated ringers infusion, Intravenous, Continuous PRN MEDICATIONS: acetaminophen (TYLENOL) tablet 650 mg, Oral, q6h PRN baclofen (LIORESAL) tablet 10 mg, Oral, BID PRN dextrose IV 12.5-25 g, Intravenous, PRN fentaNYL (PF) (SUBLIMAZE) injection 25 mcg, Intravenous, q4h PRN glucagon (GLUCAGEN) injection 1 mg, Intramuscular, PRN glucose (Diabetic Use) oral gel, Oral, PRN ondansetron (ZOFRAN) injection 4 mg, Intravenous, Once PRN ondansetron (ZOFRAN) injection 4 mg, Intravenous, q6h PRN oxyCODONE-acetaminophen (PERCOCET) 10-325 MG tablet 1 tablet, Oral, q4h PRN ?? polyethylene glycol 3350 (MIRALAX) packet 17 g, Oral, QDAY PRN ?? Please be advised that part of this text was done using voice recognition software. Errors may have been missed upon review. Michelle Pratt MD Hospitalist * Sathya Cheney, PT - 02/05/2019 5:50 PM CDT Physical Therapy Evaluation. Please refer to Filed Flowsheet for further details. PT orders received, chart reviewed for diagnosis and medical systems review.. Nursing consents for PT. Patient consents to participate in therapy. DATE OF OPERATION: 02/04/2019 ? 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 ?? POSTOPERATIVE DIAGNOSIS: Infected right total hip arthroplasty. ?? PROCEDURES: 1. Irrigation and debridement with arthrotomy, infected right hip Arthroplasty. 2. Irrigation and debridement of infected right hip trochanteric bursa 2. Wound VAC application, right hip. José Miguel Keys is a 68 year old male who presents for evaluation of his right hip injury . Patient has had a weeks worth of worsening right hip with ambulation and at rest. He states he feels the pain deep in his right hip but also on the skin. He states he has been febrile recently but does not remember any specific number. He was seen at [facility] yesterday and found to be tachycardic and so was started on broad spectrum antibiotics. They also obtained a pelvis xray and CT of right femur He notably has had bilateral ARNALDO performed with the right performed in 2005 and the left in 2010. No complaints on the left ARNALDO. His primary surgeon has since moved to [place] according to the patient. Dr. Amos at [facility] did not feel comfortable managing this patient. The patient has prior history of MRSA with an epidural abscess treated surgically 2017 at [facility]. He also has afib for which he is on xarelto and a history of a SD. He has VALENTINA and wears a CPAP at night. Denies numbness or tingling in the affected extremity. ROS otherwise negative. Low albumin and elevated inflammatory markers ?? Temp:101.9 WBC: 14.2 ESR: 110 CRP: 6.8 ?? Past??Medical??&??Surgical??History Past Medical History: Diagnosis Date ??? Actinic keratosis ? Arthritis ? Asthma ? Atrial fibrillation, chronic ? Basal cell carcinoma ? CAD (coronary artery disease) ? Clotting disorder ? Colitis ? COPD (chronic obstructive pulmonary disease) ? Diabetes ? DVT (deep venous thrombosis) ? Dyslipidemia ? Eczema ? GERD (gastroesophageal reflux disease) ? Heart attack ? High blood pressure ? Hx of blood clots ? Keloid ? Kidney disease ? Lentigo maligna melanoma ? MRSA (methicillin resistant staph aureus) culture positive 07/29/2017 ?? 07/29/17-Disc- tissue culture MRSA ??? Obstructive sleep apnea ? VALENTINA (obstructive sleep apnea) ? Other cirrhosis of liver ? Peripheral neuropathy ? Psoriasis ? Seizures ? Squamous cell carcinoma ? Past??Medical??&??Surgical??History SUBJECTIVE: Pleasant, alert, receptive and cooperative . present and gives Hx of significant medical events with hospitalizations , SNF level rehab since 01/2018. Home Situation: Type of Residence: Private Residence(tri level ) Lives with:: Spouse Steps to Enter: 6(8 steps up to bedroom, been staying on first floor ) Handrails: Indoor Home Structure: Split Level(tri level ) Equipment At Home: Commode-Bedside;Walker-2 Wheeled;Walker-4 Wheeled with Seat;Wheelchair-Standard Prior Level of Functioning: Mobility: Ambulate-In Home ;With Assistive Device;With Physical Assistance(uses walker ) Fallen Within 6 Mos: No Pain Assessment: Pain Rating Score #: 10 Pain Location : Hip Pain Orientation: Right OBJECTIVE: Cognition: Orientation Level: Oriented X4 Cognition: Follows Commands-Consistent;Attention/concentration-normal for age;Processing-Appropriate Participation: Active Participation Precautions: NWB R LE Fall Risk Strength: L LE WFL : hip flexor 4-/5 , 4+/5 quad, 5/5 DF R LE: hip flexor 2-/5, quad 2/5, DF 3+/5 ROM: L LE WFL R LE NT Posture: Sitting Posture: Forward Flexed Standing Posture: Forward Flexion Balance: Standing - Static: Poor;With Both Upper Extremity's Support Standing - Dynamic: Poor;With Both Upper Extremity's Support Bed Mobility: Supine to Sit: Maximum Assistance;X 2 Max cues for sequencing Transfers: Sit to Stand: Maximum Assistance;X 2 Stand to Sit: Maximum Assistance;X 2 Bed to Chair: Maximum Assistance to Left;X 2 Type of Transfer: Stand Pivot Transfer Walker support , gait belt NWB R LE with max cues to maintain Mobility: Ambulation: Level of Assistance: Activity Does Not Occur(unable secondary to weakness and R LE NWB) Weight Bearing Status-RLE: Non- Weight Bearing Activity Tolerance/Oxygen Requirements and Vitals: O2 L/M: 2 Up to chair post session , nurse aware INTERVENTION/ASSESSMENT: Patient able to actively participate in his physical therapy session with main c/o R hip pain . Required max a of 2 for bed mobility . Max a of 2 for sit to stand and stand pivot transfer from the bed to the chair with gait belt and walker and patient able to maintain NWB RLE with verbal cues. Demonstrated general weakness and deconditioning as well as poor standing balance and poor activity tolerance. Unable to ambulate and indicated that because of his debility he probably would not be able to ambulate with R LE NWB. Call light and phone in reach All lines, monitors, IV's, equipment in place and intact pre and post visit. RN notified of patient's performance/location end of session. Educated patient/family in importance of OOB mobilization with R LE NWB Educated nursing in transfer technique for back to bed with assist of 2 Pt educated in PT plan of care, fall precautions, and benefits of OOB activity. Problem list: decreased strength, decreased balance, decreased endurance, decreased ROM, decreased coordination Functional limitations: Decreased independence with ambulation/transfers, decreased safety with functional mobility. Rationale for therapy: Patient will benefit from PT to address the above issues. Refer to Plan of Care for PT goals. Please refer to Filed Flowsheet PT Evaluation for further details. RECOMMENDATIONS/PLAN: Patient would benefit from continued PT to address the above deficits to assist to improve his functional mobility towards his PLOF. Post discharge PT will be determined by subsequent ortho procedures and patient's response and progress with PT. Acute rehab vs SNF level rehab vs PT. If this is the last PT visit, this note serves as the discharge summary. Sathya Cheney, PT x [phone] * Sathya Cheney, PT - 02/05/2019 5:50 PM CDT Problem: Therapy - Total Hip Arthroplasty Goal: STG - Patient will maintain weight bearing status with all transfers and ambulation. Description NWB R LE at eval Outcome: Ongoing Goal: STG - Patient will maintain hip precautions with all transfers and ambulation. Description R Hip PHP's as indicated Outcome: Ongoing Goal: STG - Patient will ambulate Description 30 ft with ww with R LE NWB with min a Outcome: Ongoing Goal: STG - Patient will negotiate ___ step(s). Description 5 steps x 2 with rail(s) with min a Outcome: Ongoing Goal: STG - Patient is independent with home exercise program. Outcome: Ongoing Goal: TH STG - Able to move from supine to sitting. Description And perform all functional bed mobility with SBA Outcome: Ongoing Goal: TH STG - Able to transfer sit to stand. Description And perform all functional transfers with min a Outcome: Ongoing * Jonny Reynolds, [facility] - 02/05/2019 8:55 AM CDT Vancomycin Per Pharmacy (Day 3) 68 year old male receiving vancomycin for the management of OM. Other Anti-infectives: Cefepime Height: 5' 11 (180.3 cm) (02/02/192124) Weight: 94.3 kg (208 lb) (02/02/192124) Temp (24hrs), Av.9 ??F (36.6 ??C), Min:97.3 ??F (36.3 ??C), Max:98.8 ??F (37.1 ??C) Current Labs: Recent Labs Component Name 02/05/19 0238 02/04/19 0737 02/04/19 0234 02/03/19 0106 BUN 20 - CREATININE 1.24* - 1.13 1.22* WBC 10.6 10.6 - 14.2* Renal: Estimated Creatinine Clearance: 65 mL/min (A) (based on SCr of 1.24 mg/dL (H)). Positive Pertinent Cultures: None, cx from OR pending Levels: Recent Labs Component Name 02/05/19 0238 02/04/19 1412 07/26/17 0601 07/24/17 0508 07/20/17 0424 07/19/17 0416 VANCORNDM 21.8 - - - 25.8 24.5 VANCTROUGH - 28.6* 17.1 20.8* - - Assessment Was on 1500 mg IV q12h but trough before the 4th dose was elevated at 28.6 yesterday afternoon. Another level was obtained this morning about 12.5 hours after the previous level which was 21.8. Performed kinetic equations and determined Adalberto to be 0.022 and half life to be 31.5 hours. Estimate the level will be 20 about 4 hours after the 0238 level this morning. Will order 1500 mg IV x1 for 1000 and obtain a random level tomorrow morning. Plan: Will follow protocol and order 1500 mg IV x1. Next vancomycin level will be tomorrow with AM labs Pharmacy will continue to monitor labs and adjust dose per protocol. Eunice Aly, PharmD 02/05/2019 8:52 AM Vancomycin Dosing Protocol S/O: Vancomycin trough level 19.2 mcg/mL on 02/06/2019. Current regimen = 1500 mg (20mg/kg) serial dosing Recent Labs Component Name 02/06/19 0419 CREATININE 1.23* A: Patient's trough level within therapeutic and non-toxic target Range on current dosage regimen. P: Will dose with 1500mg x1 and draw random level with AM labs on 02/07/2019 Will reevaluate trough level in 1 days. Will monitor Scr q 1-2 days. Jonny Reynolds RPH 02/06/2019 7:30 AM * Jason Blackburn MD - 02/05/2019 7:25 AM CDT Orthopedic Surgery Progress Note Name: José Miguel Keys 68 year old, male : 1950 Admit Date: 02/02/2019 8:57 PM February 05, 2019 Subjective Patient seen this morning on rounds. In no acute distress. No acute orthopaedic events over night. Complaints: complains of right hip pain but that it is improved since pre surgery. Transfer orders were not released after surgery. Pain: Controlled with medication Data BP 106/60 Pulse 88 Temp 98.1 ??F (36.7 ??C) (Oral) Resp 18 Ht 1.803 m (5' 11 ) Wt 94.3 kg (208 lb) SpO2 97% BMI 29.01 kg/m2Temp (24hrs), Av.1 ??F (36.7 ??C), Min:97.3 ??F (36.3 ??C), Max:99 ??F (37.2 ??C) Labs Recent Labs Component Name 02/05/19 0238 02/04/19 0737 02/03/19 0106 WBC 10.6 10.6 14.2* HGB 8.5* 8.7* 9.9* HCT 27.9* 30.0* 32.9* PLTCOUNT 220 212 241 Cultures Microbiology Results (Displays last 21 days for this encounter ONLY) Procedure Component Value - Date/Time CULTURE ANAEROBE [[id number]] Collected: 02/04/191128 Lab Status: In process Specimen: Micro from Hip Updated: 02/04/19 1208 CULTURE WOUND+GRAM STAIN [[id number]] Collected: 02/04/191128 Lab Status: Preliminary result Specimen: Micro from Hip Updated: 02/04/192226 Gram Stain Heavy Polymorphonuclear cells Moderate Red blood cells No organisms seen Narrative: Surgical Description: Right Hip CULTURE ANAEROBE [[id number]] Collected: 02/04/191128 Lab Status: In process Specimen: Micro from Hip Updated: 02/04/19 1208 CULTURE TISSUE+GRAM STAIN [[id number]] Collected: 02/04/191128 Lab Status: Preliminary result Specimen: Micro from Hip Updated: 02/04/192237 Gram Stain Moderate Polymorphonuclear cells Heavy Red blood cells No organisms seen Narrative: Surgical Description: Right Hip CULTURE BLOOD [[id number]] Collected: 02/02/192237 Lab Status: Preliminary result Specimen: Blood Peripheral Updated: 02/05/19 0230 Culture No growth CULTURE BLOOD [[id number]] Collected: 02/02/192237 Lab Status: Preliminary result Specimen: Blood Peripheral Updated: 02/05/19 023 Culture No growth Physical Exam General appearance: Awake, alert, in no distress. He is pleasant and cooperative with examination. Right lower extremity: intact EHL/FHL/TA/GS, Sensation: intact to light touch distally, Warm and well perfused. Wound vac in place and holding suction. Assessment/Plan 68M with infected right total hip arthroplasty from 2005 ?? -s/p right hip I&D and wound vac application on 02/04/[address] Alexander 1. right lower extremity: NWB 2. Continue pain control 3. Continue dvt prophylaxis - lovenox ordered but not released. Discussed with RN. 4. PT/OT 5. Plan for OR for repeat right hip I&D, possible wound vacuum exchange versus closureand right total hip arthroplasty revision 6. Continue wound vac care 7. Continue antibiotics 8. Please page ortho with questions * Chris Carter RN - 02/04/2019 9:44 PM CDT A&Ox4. Flat effect. C/o R hip pain with scheduled oxycontin and prn po& iv med for management. Wound vac in place with 150cc output overnight. Voiding per urinal. IVF is infusing per order. Pt is resting in bed with call light within reach. Vitals: 02/04/19 2031 02/04/19 2353 02/05/19 0151 02/05/19 0450 BP: 103/55 109/60 106/60 Pulse: (!) 112 87 88 Resp: 16 14 18 Temp: 97.8 ??F (36.6 ??C) 98.1 ??F (36.7 ??C) SpO2: 100% 100% 97% Weight: Height: Chris Carter RN 02/05/2019 7:33 AM * Chris Carter RN - 02/04/2019 9:43 PM CDT Problem: Isolation Goal: Prevent Transmission of Infection Outcome: Ongoing Contact isolation. PPE on door and utilized. Problem: Pain/Discomfort Goal: Patient exhibits reduced pain/discomfort as evidenced by pain scores Outcome: Ongoing C/o R hip pain with scheduled oxycontin and prn med for management. Goal: Patient verbalizes acceptable level of pain relief and ability to engage in desired activity. Outcome: Ongoing Pt verbalize when pain med is needed. * Jonny Reynolds, [facility] - 02/04/2019 2:42 PM CDT Vancomycin Per Pharmacy (Day 2) 68 year old male receiving vancomycin 1500 mg IV q 12 hours for the management of osteomyelitis. Other Anti-infectives: cefepime Vitals: Height: 5' 11 (180.3 cm) (02/02/192124) Weight: 94.3 kg (208 lb) (02/02/192124) Temp (24hrs) Max:99.2 ??F (37.3 ??C) Current Labs: Recent Labs Component Name 02/04/19 0737 02/04/19 0234 02/03/19 0106 10/10/18 1515 09/19/17 0243 BUN - 21 19 - 26 CREATININE - 1.13 1.22* - 0.6 WBC 10.6 - 14.2* 7.1 8.5 Renal: Estimated Creatinine Clearance: 71.3 mL/min (based on SCr of 1.13 mg/dL). Cultures: 02/02 blood x2: NGTD Levels: Recent Labs Component Name 02/04/19 1412 07/26/17 0601 07/24/17 0508 07/20/17 0424 07/19/17 0416 07/18/17 0532 VANCORNDM - - - 25.8 24.5 21.3 VANCTROUGH 28.6* 17.1 20.8* - - - Vancomycin trough goal:15-20 mcg/ml Patients vancomycin trough returned supratherapeutic at 28.6 mcg/ml. The dose prior was given an hour early and the trough was drawn an hour late (13 hours) so this is not a true trough and could expect trough to be higher. Patient's renal function has improved and WBC has decreased. I will hold next dose and obtain a random 12 hours from now. Alexandria Haines, EliazarD Vancomycin Dosing Protocol S/O: Vancomycin trough level 21.8 mcg/mL on 02/05/2019. Current regimen = 1500 mg (20mg/kg) serial dosing Recent Labs Component Name 02/05/19 0238 CREATININE 1.24* A: Patient's trough level is above the therapeutic range on Current dosagen regimen. P: Will hold dose for now and draw level in 12 hours Will reevaluate trough level in 1 day. Will monitor Scr q 1-2 days. Jonny Reynolds RPH 02/05/2019 4:58 AM * Jason Blackburn MD - 02/04/2019 11:58 AM CDT Orthopaedic Surgery Postoperative Check Surgery Date: 02/04/2019 Diagnosis: right infected ARNALDO Procedure Preformed: Procedure(s): RIGHT HIP IRRIGATION AND DEBRIDEMENT, WOUND VAC PLACEMENT Subjective Complaints: No complaints today Pain: Controlled with medication Physical Exam General appearance: Awake, alert, in no distress. He is pleasant and cooperative with examination. Right lower extremity: intact EHL/FHL, Sensation: intact to light touch distally, warm and well perfused. Wound vac in place. Assessment/Plan 68M with infected right total hip arthroplasty from 2005 -s/p right hip I&D and wound vac application on 02/04/[address] Alexander 1. right lower extremity: NWB 2. Activity: AAT 3. PT/OT 4. Continue Pain Control 5. DVT Prophylaxis: ok from ortho perspective. Lovenox ordered. 6. Will plan for return to OR for repeat right hip I&D, possible wound vacuum exchangeversus closure and right total hip arthroplasty revision 7. Continue antibiotics 8. Wound vac x 1 9. No imaging ordered 10. Please page ortho with questions * Michelle Pratt MD - 02/04/2019 9:23 AM CDT HOSPITALIST PROGRESS NOTES Patient Name: José Miguel Keys Date of : 1950 Admit date: 02/02/2019 Admitting Physician: Lilly Jurado APRN-COLOR FINISHER Attending Physician: Michelle Pratt MD IP/Observation: Inpatient PCP: Briana Medeiros MD ASSESSMENT AND PLAN: Sepsis POA due to Infected right ARNALDO Plan is for right hip irrigation and debridement, placement of antibiotic beads, wound VAC application on February 04--> saw him after the procedure Revised cardiac index score: 6.0 %: 30-day risk of , SD, or cardiac arrest EKG no new changes, Afib with controlled rate Continue IV abx Vanc I will monitor Vanc trough levels and renal function for this pt Continue IV pain medications I will monitor his mentation closely Vanc trough level shown to high today, holding the dose I will monitor renal function closely Lovenox for DVT ppx per ortho I will closely monitor H&H closely Hypotension Post operative Likely due to hypovolemia vs medication induced Give IVF bolus d/w RN As well Chronic Afib Stable Rate controlled AC on hold DM2 A1C 5.8 Continue SSI and accuchecks COPD Stable Prn inhalers Hyponatremia Mild Monitor closely VALENTINA on CPAP ANTICIPATED D/C: TBD Personally discussed at bedside with RN Due to medical issues in the assessment and plan, continued hospitalization will be required. Clinical course: This is a 68 year old white male with hx CAD, atrial fibrillation, prior DVT, COPD, cirrhosis, VALENTINA who presents with 1 week of right hip pain with associated swelling and redness of the region. He denies any fevers, chills, sore throat, nausea, vomiting, diarrhea, abdominal pain, chest pain, dyspnea, headache, syncope, vision loss, dizziness, dysuria. He went to [facility] and workup thereincluding CT of the right hip revealed suspected abscess for which he was transferred here for further evaluation by [facility]. The patient was given IV vanc and cefepime and pain meds and transferred here for evaluation by [facility]. Of note the patient had multiple admissions/hospitali zations in 2018 for pneumonia, MRSA bacteremia and eventual spinal abscess that was surgically drained. He has been out of hospitals since last fall. He uses a walker and lives with his who takes care of him tremendously. Subjective: Pain is 8/10, pain meds help and are not lasting longer, sometimes effect does not last longer he said. No fever or chills. is at bedside. All questions answered to evidence and dissection. Other ROS negative. Objective: Vitals: 02/04/19 1541 02/04/19 1641 02/04/19 1711 02/04/19 1900 BP: 91/55 100/63 88/60 116/66 Pulse: 88 Resp: 18 Temp: 97.3 ??F (36.3 ??C) SpO2: 100% Weight: Height: GEN: alert, well appearing, and in no distress HEENT: EOMI, PERRL,dryMM. Neck supple. No thyromegaly LUNGS: Clear to auscultation bilaterally. No abnormal respiratory effort or retraction noted. No w/r/r. CV: irregular rate and rhythm without murmur, gallop or rub. ABD: soft, nontender, nondistended, no hepatomegaly, normal bowel sounds; no CVA tenderness b/l SKIN: Normal to inspection. Warm, dry, supple, with no changes in moles or sores that will not heal. MSK: Tender R hip, limited ROM --> post surg, wound vac is in place, has 150 cc bloody discharge, post operative tenderness and swelling noted. Able to wiggle toes on RLE, sensations pulsations normal NEURO: Intact motor, sensory, cerebellar, and cranial nerve systems PSYCH: The patient is oriented to time, place, and person I have reviewed MAR. ALL LAB AND RADIOLOGY REPORTS HAVE BEEN PERSONALLY REVIEWED BY ME. Labs: Recent Labs Component Name 02/04/19 0737 02/03/19 0106 10/10/18 1515 09/19/17 0243 09/18/17 0003 WBC 10.6 14.2* 7.1 8.5 8.7 RBC 3.26* 3.64* 3.94* 2.85* 3.09* HGB 8.7* 9.9* 11.0* 8.1* 8.8* HCT 30.0* 32.9* 34.5* 28.0* 29.6* MCV 92.0 90.4 87.6 98.2* 95.8 MCHC 29.0* 30.1* 31.9* 28.9* 29.7* PLTCOUNT 212 241 183 208 199 NEUTPCT - 79.6* - 79.2* 79.2* LYMPHPCT - 4.7* 9.3 - - EOSINPCT - - 4.2 - - BASOPHILPCT - 0.4 0.6 - - GRANSIMMPCT - 0.5 - - - NEUTABS - 11.28* - 6.8 6.9 LYMPHABS - 0.66* - - - BASOABS - 0.05 - - - Recent Labs Component Name 02/04/19 0234 02/03/19 0106 09/19/17 0243 SODIUM 135* 134* - POTASSIUM 3.7 4.3 4.9* CHLORIDE 106 101 - CO2 21* 25 34* BUN 21 19 26 CREATININE 1.13 1.22* 0.6 GLUCOSE 114* 112* - CALCIUM 8.6 9.5 9.1 Recent Labs Component Name 02/03/19 0106 09/15/17 0441 09/11/17 0437 09/06/17 1157 09/04/17 0447 08/26/17 1420 ALBUMIN 3.1* - - - - - - ALKPHOS 304* - - 204* 190* - - ALT 21 - - 10 12 - - AST 20 - - 21 27 - - TBIL 1.0 - - - - - - TPROT 7.0 - - - - - - BNP - 694* 806* - - - 552* - = values in this interval not displayed. Recent Labs Component Name 02/04/19 0617 08/26/17 1420 COLORUA Yellow - CLARITYUA Cloudy* - SPECGRAVUA 1.021 - PHUA 5.0 6.0 PROTEINUA Negative - BLOODUA Negative - LEUKOCYTEUA Negative - NITRITEUA Negative - GLUCOSEUA Negative - KETONEUA Trace* - BILIRUBINUA Negative - UROBILINUA Negative <2.0 RBCUA - 1 Recent Labs Component Name 02/03/19 0413 02/03/19 0106 02/02/19 2238 LACTICACID 0.7 0.8 0.9 No results for input(s): SEDRATE in the last 31764 hours. Recent Labs Component Name 08/15/17 0348 08/09/17 0745 08/05/17 0445 CRP 4.1* 32.0* 14.4* No results for input(s): TROPONIN in the last 91876 hours. No results for input(s): DDIMER in the last 94231 hours. Recent Labs Component Name 07/24/17 0508 04/23/17 1103 TSH 2.518 1.64 Recent Labs Component Name 02/03/19 0106 07/14/17 2212 HGBA1C 5.8 6.3 Recent Labs Component Name 02/04/19 0737 02/03/19 0106 10/10/18 1515 INR 1.0 1.1 1.1 Recent Labs Component Name 02/04/19 0737 02/03/19 0106 10/10/18 1515 PT 11.1 11.3 11.0 Recent Labs Component Name 02/04/19 0737 09/10/17 0549 09/07/17 0428 PTT 26.4 29.7 32.8 Recent Labs Component Name 09/10/17 0557 09/09/17 0841 09/09/17 0422 FIO2 40.0 100.0 100.0 MEDICATIONS FOR CURRENT ENCOUNTER: SCHEDULED MEDICATIONS: albuterol (PROVENTIL;VENTOLIN) (2.5 MG/3ML) 0.083% nebulizer solution 2.5 mg, Inhalation, q6h ascorbic acid (VITAMIN C) tablet 500 mg, Oral, BID aspirin chew tablet 81 mg, Oral, QDAY budesonide-formoterol (SYMBICORT) 160-4.5 MCG/ACT inhaler 2 puff, Inhalation, BID cefepime (MAXIPIME) 2,000 mg in 0.9% NaCl 50 mL IVPB, Intravenous, q8h cyanocobalamin (VITAMIN B-12) tablet 500 mcg, Oral, QDAY morphine CR 12hr (MS CONTIN) tablet 15 mg, Oral, q12h pantoprazole EC (PROTONIX) tablet 40 mg, Oral, QDAY senna-docusate (SENOKOT-S) tablet 2 tablet, Oral, QDAY tamsulosin (FLOMAX) capsule 0.4 mg, Oral, AT BEDTIME vancomycin (VANCOCIN) IV dose per pharmacy, Does not apply, DIRECTED zinc sulfate (ZINCATE) capsule 220 mg, Oral, QDAY ?? [COMPLETED] lactated ringers IV bolus, Intravenous, Once CONTINUOUS MEDICATIONS: ?? lactated ringers infusion, Intravenous, Continuous PRN MEDICATIONS: acetaminophen (TYLENOL) tablet 650 mg, Oral, q6h PRN baclofen (LIORESAL) tablet 10 mg, Oral, BID PRN dextrose IV 12.5-25 g, Intravenous, PRN fentaNYL (PF) (SUBLIMAZE) injection 25 mcg, Intravenous, q4h PRN glucagon (GLUCAGEN) injection 1 mg, Intramuscular, PRN glucose (Diabetic Use) oral gel, Oral, PRN ondansetron (ZOFRAN) injection 4 mg, Intravenous, Once PRN ondansetron (ZOFRAN) injection 4 mg, Intravenous, q6h PRN oxyCODONE-acetaminophen (PERCOCET) 10-325 MG tablet 1 tablet, Oral, q4h PRN ?? polyethylene glycol 3350 (MIRALAX) packet 17 g, Oral, QDAY PRN ?? Please be advised that part of this text was done using voice recognition software. Errors may have been missed upon review. Michelle Pratt MD Hospitalist * Larry Alexander MD - 02/04/2019 6:36 AM CDT Orthopedic Surgery Progress Note Name: José Miguel Keys 68 year old, male : 1950 Admit Date: 02/02/2019 8:57 PM February 04, 2019 Subjective Patient seen this morning on rounds. In no acute distress. No acute orthopaedic events over night. Complaints: No complaints today Pain: Controlled with medication Data BP 111/65 Pulse 95 Temp 98.3 ??F (36.8 ??C) Resp 18 Ht 1.803 m (5' 11 ) Wt 94.3 kg (208 lb) SpO2 99% BMI 29.01 kg/m2Temp (24hrs), Av ??F (37.2 ??C), Min:98.3 ??F (36.8 ??C), Max:100.3 ??F (37.9 ??C) Labs Recent Labs Component Name 02/03/19 0106 10/10/18 1515 09/19/17 0243 WBC 14.2* 7.1 8.5 HGB 9.9* 11.0* 8.1* HCT 32.9* 34.5* 28.0* PLTCOUNT 241 183 208 Cultures Microbiology Results (Displays last 21 days for this encounter ONLY) Procedure Component Value - Date/Time CULTURE BLOOD [[id number]] Collected: 02/02/192237 Lab Status: Preliminary result Specimen: Blood Peripheral Updated: 02/04/19 0230 Culture No growth 24 hours CULTURE BLOOD [[id number]] Collected: 02/02/192237 Lab Status: Preliminary result Specimen: Blood Peripheral Updated: 02/04/190 Culture No growth 24 hours Physical Exam General appearance: Awake, alert, in no distress. He is pleasant and cooperative with examination. Right lower extremity: intact EHL/FHL/TA/GS, Sensation: intact to light touch distally, Warm and well perfused. TTP at the right hip. Decreased ROM. 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 1. right lower extremity: NWB 2. Continue pain control 3. Hold dvt prophylaxis 4. Plan for OR today for right hip irrigation and debridement, placement of antibiotic beads, and wound vacuum application 5. Labs pending 6. NPO 7. Antibiotics per medicine 8. Please page ortho with questions Patient seen and examined, agree with above resident note. Site marked This patient? s prior H&P was reviewed, the patient was examined and no change has occurred in the patient's condition since the prior H&P was completed. 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 Exam reveals right hip limitation of and pain with ROM. Complete examination/plan noted above. I personally examined the patient and edited and agree with the above findings in the note Assessment/Plan: Conservative treatment for infected right hip arthroplasty including >12 weeks of PT, NSAIDS, glucosamine/Vit D, ambulatory aids, weight loss, and corticosteroid injections will fail and risk systemic sepsis. Further conservative treatment which has been unsuccessful is contraindicated as it would lead to further debility and worsening deconditioning. Symptoms of pain, difficulty ambulating, increased risk of falling due to poor range of motion and instability/locking/and catching, difficulty standing, difficulty with stair climbing and difficulty with personal hygiene areinterfering with patient's lifestyle. Will proceed with previously discussed irrigation and debridement of infected right hip arthroplasty with wound vac application and possible antibiotic bead placement, we also discussed retention of components vs resection arthroplasty and antibiotic spacer placement likely Risks, benefits, and alternatives to the surgical [...] admitted with a diagnosis or diagnoses of severe osteoarthritis right hip and current medical/postoperative needs are included below. [...] nebulizer solution 2.5 mg. 1 Box 11 ??? Ascorbic Acid 500 MG Take 500 mg by mouth 2 times daily ??? aspirin (ASPIRIN) 81 MG tablet Take 81 mg by mouth DAILY. ??? baclofen (LIORESAL) 10 MG tablet Take 10 mg by mouth 2 times daily 0 ??? bumetanide (BUMEX) 0.5 MG tablet Take 0.5 mg by mouth 2 times daily ??? diphenhydrAMINE (BENADRYL) 25 MG capsule Take 25 mg by mouth every 6 hours as needed for Itching ??? ELIQUIS 5 MG tablet Take 5 mg by mouth 2 times daily 3 ??? ferrous sulfate 325 (65 FE) MG tablet Take 325 mg by mouth daily with breakfast ??? lidocaine (LIDODERM) 5 % patch Apply 2 patches to skin DAILY. 10 patch 11 ??? metoprolol succinate XL 24hr (TOPROL XL) 50 MG tablet Take 50 mg by mouth once daily ??? nystatin (MYCOSTATIN) 689861 UNIT/GM powder APPLY TO AFFECTED AREA TWICE A DAY 3 ??? omeprazole (PRILOSEC) 40 MG capsule Take 40 mg by mouth daily before breakfast ??? Oxygen Use 1 L as directed 1 LITER AT BEDTIME AND PRN ??? roflumilast (DALIRESP) 500 MCG tablet Take 500 mcg by mouth once daily ??? SYMBICORT 160-4.5 MCG/ACT inhaler INHALE 2 PUFFS BY MOUTH TWICE A DAY 6 ??? tamsulosin (FLOMAX) 0.4 MG capsule Take 0.4 mg by mouth at bedtime 1 ??? triamcinolone acetonide (KENALOG) 0.1 % cream APPLY A THIN LAYER TOPICALLY FOUR TIMES DAILY TO THE AFFECTED AREA 3 ??? vitamin B-12 (CYANOCOBALAMIN) 500 MCG tablet Take 500 mcg by mouth once daily ??? vitamin D, ergocalciferol, (DRISDOL) 66455 UNITS capsule Take 50,000 Units by mouth every 7 days 0 ??? zinc sulfate (ZINCATE) 50 MG capsule Take 220 mg by mouth once daily Past Medical History: Diagnosis Date ??? Actinic [...] MRSA (methicillin resistant staph aureus) culture positive 07/29/2017 07/29/17-Disc- tissue culture MRSA ??? Obstructive sleep apnea ??? VALENTINA (obstructive sleep apnea) ??? Other cirrhosis of liver ??? Peripheral neuropathy ??? Psoriasis ??? Seizures ??? Squamous cell carcinoma Past Surgical History: Procedure Laterality Date ??? Cataract Removal Bilateral ??? ENDOSCOPY, UPPER N/A 09/15/2017 N/A; ESOPHAGOGASTRODUODENOSCOPY (EGD) DIAGNOSTIC ??? HX JOINT REPLACEMENT ??? HX JOINT REPLACEMENT right hip 2005, left hip 2008 ??? Tracheostomy N/A 09/13/2017 N/A; TRACHEOSTOMY 15 Point review of systems was otherwise negative as reviewed today. Social History Occupational History ??? Not on file Tobacco Use ??? Smoking status: Former Smoker Last attempt to quit: 06/06/1981 Years since quittin.6 ??? Smokeless tobacco: Never Used Substance and [...] ??? Cancer - Skin, Melanoma Neg Hx . Please see resident's note for further details. * Chris Carter RN - 02/04/2019 12:02 AM CDT A&Ox4. Flat effect. C/o R hip pain with prn med for management. RN talked to pt regard pain medis as needed and pt has to call when needed. R hip is red, warm to touch and edematous. Voiding perurinal. NPO since ND for surgery today. CHG skin wash done. UA sent. Pt is resting in bed with calllight within reach. Vitals: 02/03/19 2132 02/04/19 0032 02/04/19 0232 02/04/19 0546 BP: 104/57 111/65 Pulse: 86 92 88 95 Resp: 22 20 16 18 Temp: 98.4 ??F (36.9 ??C) 98.3 ??F (36.8 ??C) SpO2: 100% 99% Weight: Height: Chris Carter RN 02/04/2019 7:45 AM * Chris Carter RN - 02/04/2019 12:00 AM CDT Problem: Pain/Discomfort Goal: Patient exhibits reduced pain/discomfort as evidenced by pain scores Outcome: Ongoing C/o R hip pain with prn med for management. Goal: Patient uses pharmacological and non-pharmacological pain management strategies. Outcome: Ongoing Pt is resting in bed. Goal: Patient verbalizes acceptable level of pain relief and ability to engage in desired activity. Outcome: Ongoing RN talked to pt regard pain med is as needed and pt has to call when needed. Problem: Fall Risk Goal: Patient will remain free of falls Outcome: Ongoing Pt uses call light appropriately. * Glendy Muse RN - 02/03/2019 5:37 PM CDT Shift Summary: patient here for increased right hip pain and redness. Patient for procedure tomorrow. Patient to be NPO after midnight. Patient aware. Low grad fever of 100.6 this morning, decreased without intervention to 99.2. * Jason Blackburn MD - 02/03/2019 10:11 AM CDT Brief ortho update: Plan for OR tomorrow for right hip irrigation and debridement, placement of antibiotic beads, and wound vacuum application * Michelle Pratt MD - 02/03/2019 10:02 AM CDT HOSPITALIST PROGRESS NOTES Patient Name: José Miguel Keys Date of : 1950 Admit date: 02/02/2019 Admitting Physician: Lilly Jurado APRN-COLOR FINISHER Attending Physician: Michelle Pratt MD IP/Observation: Inpatient PCP: Briana Medeiros MD ASSESSMENT AND PLAN: Sepsis POA due to Infected right ARNALDO Plan is for right hip irrigation and debridement, placement of antibiotic beads, wound VAC application on February 04 Revised cardiac index score: 6.0 %: 30-day risk of , SD, or cardiac arrest EKG no new changes, Afib with controlled rate Continue IV abx Vanc I will monitor Vanc trough levels and renal function for this pt Chronic Afib Stable Rate controlled DM2 SSI and accuchecks COPD Stable Hyponatremia Mild VALENTINA on CPAP ANTICIPATED D/C: TBD Personally discussed at bedside with RN Due to medical issues in the assessment and plan, continued hospitalization will be required. Clinical course: This is a 68 year old white male with hx CAD, atrial fibrillation, prior DVT, COPD, cirrhosis, VALENTINA who presents with 1 week of right hip pain with associated swelling and redness of the region. He denies any fevers, chills, sore throat, nausea, vomiting, diarrhea, abdominal pain, chest pain, dyspnea, headache, syncope, vision loss, dizziness, dysuria. He went to [facility] and workup thereincluding CT of the right hip revealed suspected abscess for which he was transferred here for further evaluation by [facility]. The patient was given IV vanc and cefepime and pain meds and transferred here for evaluation by [facility]. Of note the patient had multiple admissions/hospitali zations in 2018 for pneumonia, MRSA bacteremia and eventual spinal abscess that was surgically drained. He has been out of hospitals since last fall. He uses a walker and lives with his who takes care of him tremendously. Subjective: Pain is better, sometimes effect does not last longer he said. No fever or chills. is at bedside. All questions answered to evidence and dissection. Other ROS negative. Objective: Vitals: 02/04/19 0232 02/04/19 0546 02/04/19 0749 02/04/19 0815 BP: 111/65 107/66 Pulse: 88 95 78 80 Resp: 16 18 18 18 Temp: 98.3 ??F (36.8 ??C) 99 ??F (37.2 ??C) SpO2: 99% 95% 97% Weight: Height: GEN: alert, well appearing, and in no distress HEENT: EOMI, PERRL,dryMM. Neck supple. No thyromegaly LUNGS: Clear to auscultation bilaterally. No abnormal respiratory effort or retraction noted. No w/r/r. CV: irregular rate and rhythm without murmur, gallop or rub. ABD: soft, nontender, nondistended, no hepatomegaly, normal bowel sounds; no CVA tenderness b/l SKIN: Normal to inspection. Warm, dry, supple, with no changes in moles or sores that will not heal. MSK: Tender R hip, limited ROM NEURO: Intact motor, sensory, cerebellar, and cranial nerve systems. Gait did not check today. PSYCH: The patient is oriented to time, place, and person I have reviewed MAR. ALL LAB AND RADIOLOGY REPORTS HAVE BEEN PERSONALLY REVIEWED BY ME. Labs: Recent Labs Component Name 02/04/19 0737 02/03/19 0106 10/10/18 1515 09/19/17 0243 09/18/17 0003 WBC 10.6 14.2* 7.1 8.5 8.7 RBC 3.26* 3.64* 3.94* 2.85* 3.09* HGB 8.7* 9.9* 11.0* 8.1* 8.8* HCT 30.0* 32.9* 34.5* 28.0* 29.6* MCV 92.0 90.4 87.6 98.2* 95.8 MCHC 29.0* 30.1* 31.9* 28.9* 29.7* PLTCOUNT 212 241 183 208 199 NEUTPCT - 79.6* - 79.2* 79.2* LYMPHPCT - 4.7* 9.3 - - EOSINPCT - - 4.2 - - BASOPHILPCT - 0.4 0.6 - - GRANSIMMPCT - 0.5 - - - NEUTABS - 11.28* - 6.8 6.9 LYMPHABS - 0.66* - - - BASOABS - 0.05 - - - Recent Labs Component Name 02/04/19 0234 02/03/196 09/19/17 0243 SODIUM 135* 134* - POTASSIUM 3.7 4.3 4.9* CHLORIDE 106 101 - CO2 21* 25 34* BUN 21 19 26 CREATININE 1.13 1.22* 0.6 GLUCOSE 114* 112* - CALCIUM 8.6 9.5 9.1 Recent Labs Component Name 02/03/19 0106 09/15/17 0441 09/11/17 0437 09/06/17 1157 09/04/17 0447 08/26/17 1420 ALBUMIN 3.1* - - - - - - ALKPHOS 304* - - 204* 190* - - ALT 21 - - 10 12 - - AST 20 - - 21 27 - - TBIL 1.0 - - - - - - TPROT 7.0 - - - - - - BNP - 694* 806* - - - 552* - = values in this interval not displayed. Recent Labs Component Name 02/04/19 0617 08/26/17 1420 COLORUA Yellow - CLARITYUA Cloudy* - SPECGRAVUA 1.021 - PHUA 5.0 6.0 PROTEINUA Negative - BLOODUA Negative - LEUKOCYTEUA Negative - NITRITEUA Negative - GLUCOSEUA Negative - KETONEUA Trace* - BILIRUBINUA Negative - UROBILINUA Negative <2.0 RBCUA - 1 Recent Labs Component Name 02/03/19 0413 02/03/19 0106 02/02/19 2238 LACTICACID 0.7 0.8 0.9 No results for input(s): SEDRATE in the last 49815 hours. Recent Labs Component Name 08/15/17 0348 08/09/17 0745 08/05/17 0445 CRP 4.1* 32.0* 14.4* No results for input(s): TROPONIN in the last 89150 hours. No results for input(s): DDIMER in the last 91968 hours. Recent Labs Component Name 07/24/17 0508 04/23/17 1103 TSH 2.518 1.64 Recent Labs Component Name 02/03/19 0106 07/14/17 2212 HGBA1C 5.8 6.3 Recent Labs Component Name 02/04/19 0737 02/03/19 0106 10/10/18 1515 INR 1.0 1.1 1.1 Recent Labs Component Name 02/04/19 0737 02/03/19 0106 10/10/18 1515 PT 11.1 11.3 11.0 Recent Labs Component Name 02/04/19 0737 09/10/17 0549 09/07/17 0428 PTT 26.4 29.7 32.8 Recent Labs Component Name 09/10/17 0557 09/09/17 0841 09/09/17 0422 FIO2 40.0 100.0 100.0 MEDICATIONS FOR CURRENT ENCOUNTER: SCHEDULED MEDICATIONS: albuterol (PROVENTIL;VENTOLIN) (2.5 MG/3ML) 0.083% nebulizer solution 2.5 mg, Inhalation, q6h ascorbic acid (VITAMIN C) tablet 500 mg, Oral, BID aspirin chew tablet 81 mg, Oral, QDAY baclofen (LIORESAL) tablet 10 mg, Oral, BID budesonide-formoterol (SYMBICORT) 160-4.5 MCG/ACT inhaler 2 puff, Inhalation, BID cefepime (MAXIPIME) 2,000 mg in 0.9% NaCl 50 mL IVPB, Intravenous, q8h cyanocobalamin (VITAMIN B-12) tablet 500 mcg, Oral, QDAY insulin aspart (NovoLOG) pen 0-12 Units, Subcutaneous, TID WC metoprolol succinate XL 24hr (TOPROL XL) tablet 25 mg, Oral, QDAY pantoprazole EC (PROTONIX) tablet 40 mg, Oral, QDAY tamsulosin (FLOMAX) capsule 0.4 mg, Oral, AT BEDTIME vancomycin (VANCOCIN) IV dose per pharmacy, Does not apply, DIRECTED vancomycin HCl (VANCOCIN) 1,500 mg in 0.9% NaCl 500 mL IVPB, Intravenous, q12h ?? zinc sulfate (ZINCATE) capsule 220 mg, Oral, QDAY CONTINUOUS MEDICATIONS: ?? 0.9% NaCl infusion, Intravenous, Continuous PRN MEDICATIONS: acetaminophen (TYLENOL) tablet 650 mg, Oral, q6h PRN dextrose IV 12.5-25 g, Intravenous, PRN fentaNYL (PF) (SUBLIMAZE) injection 25 mcg, Intravenous, q4h PRN glucagon (GLUCAGEN) injection 1 mg, Intramuscular, PRN glucose (Diabetic Use) oral gel, Oral, PRN ondansetron (ZOFRAN) injection 4 mg, Intravenous, q6h PRN ?? oxyCODONE-acetaminophen (PERCOCET) 10-325 MG tablet 1 tablet, Oral, q4h PRN ?? Please be advised that part of this text was done using voice recognition software. Errors may havebeen missed upon review. Michelle Pratt MD Hospitalist * Jonny Reynolds, [facility] - 02/03/2019 3:51 AM CDT Vancomycin Dosing Protocol José Miguel Keys is a 68 year old male on receiving Vancomcyin for Sepsis (Goal Tr 15-20) Patient weight is Wt 94.3 kg (208 lb) Recent Labs Component Name 02/03/19 0106 CREATININE 1.22* estimated Creatinine Clearance = Estimated Creatinine Clearance: 66.1 mL/min (A) (based on SCr of 1.22 mg/dL (H)). Recent Labs Component Name 02/03/19 0106 WBC 14.2* Last Temperature = Temp: 99 ??F (37.2 ??C) Assessment Initial dosing regimen: Initial Loading Dose: 2250 mg (25 mg/kg rounded to nearest 250 mg) Maintenance Dose: 1500 mg (15 mg/kg rounded to nearest 250 mg) Interval: q 12 hr based on Age and estimated CrCl Plan Will obtain Vancomycin trough level on 02/04/2019 (date), evaluate, and adjust dosage regimen if appropriate. Goal Trough: 15-20 mcg/ml Will monitor Scr q 1-4 days. Pharmacist Name: Jonny Reynolds RPH * [place] - 02/03/2019 2:44 AM CDT Problem: Isolation Goal: Prevent Transmission of Infection Outcome: Ongoing Problem: Pain/Discomfort Goal: Patient exhibits reduced pain/discomfort as evidenced by pain scores Outcome: Ongoing Goal: Patient uses pharmacological and non-pharmacological pain management strategies. Outcome: Ongoing Goal: Patient verbalizes acceptable level of pain relief and ability to engage in desired activity. Outcome: Ongoing Problem: Fall Risk Goal: Patient will remain free of falls Outcome: Ongoing Problem: Isolation Goal: Prevent Transmission of Infection Outcome: Ongoing documented in this encounter H&P Notes * Yasmany Oh MD - 02/02/2019 9:30 PM CDT HISTORY & PHYSICAL Admit Date: 02/02/2019 8:57 PM Cc: right hip pain and swelling This is a 68 year old white male with hx CAD, atrial fibrillation, prior DVT, COPD, cirrhosis, VALENTINA who presents with 1 week of right hip pain with associated swelling and redness of the region. He denies any fevers, chills, sore throat, nausea, vomiting, diarrhea, abdominal pain, chest pain, dyspnea, headache, syncope, vision loss, dizziness, dysuria. He went to [facility] and workup thereincluding CT of the right hip revealed suspected abscess for which he was transferred here for further evaluation by [facility]. The patient was given IV vanc and cefepime and pain meds and transferred here for evaluation by [facility]. Of note the patient had multiple admissions/hospitali zations in 2018 for pneumonia, MRSA bacteremia and eventual spinal abscess that was surgically drained. He has been out of hospitals since last fall. He uses a walker and lives with his who takes care of him tremendously. Past History Medications Prior to Admission Medication Sig Dispense Refill ??? acetaminophen (TYLENOL) 325 MG tablet Take 650 mg by mouth every 4 hours as needed ??? albuterol (PROVENTIL;VENTOLIN) (5 MG/ML) 0.5% nebulizer solution 2.5 mg. 1 Box 11 ??? Ascorbic Acid 500 MG Take 500 mg by mouth 2 times daily ??? aspirin (ASPIRIN) 81 MG tablet Take 81 mg by mouth DAILY. ??? baclofen (LIORESAL) 10 MG tablet Take 10 mg by mouth 2 times daily 0 ??? bumetanide (BUMEX) 0.5 MG tablet Take 0.5 mg by mouth 2 times daily ??? diphenhydrAMINE (BENADRYL) 25 MG capsule Take 25 mg by mouth every 6 hours as needed for Itching ??? ELIQUIS 5 MG tablet Take 5 mg by mouth 2 times daily 3 ??? ferrous sulfate 325 (65 FE) MG tablet Take 325 mg by mouth daily with breakfast ??? lidocaine (LIDODERM) 5 % patch Apply 2 patches to skin DAILY. 10 patch 11 ??? metoprolol succinate XL 24hr (TOPROL XL) 50 MG tablet Take 50 mg by mouth once daily ??? nystatin (MYCOSTATIN) 425700 UNIT/GM powder APPLY TO AFFECTED AREA TWICE A DAY 3 ??? omeprazole (PRILOSEC) 40 MG capsule Take 40 mg by mouth daily before breakfast ??? Oxygen Use 1 L as directed 1 LITER AT BEDTIME AND PRN ??? roflumilast (DALIRESP) 500 MCG tablet Take 500 mcg by mouth once daily ??? SYMBICORT 160-4.5 MCG/ACT inhaler INHALE 2 PUFFS BY MOUTH TWICE A DAY 6 ??? tamsulosin (FLOMAX) 0.4 MG capsule Take 0.4 mg by mouth at bedtime 1 ??? triamcinolone acetonide (KENALOG) 0.1 % cream APPLY A THIN LAYER TOPICALLY FOUR TIMES DAILY TO THE AFFECTED AREA 3 ??? vitamin B-12 (CYANOCOBALAMIN) 500 MCG tablet Take 500 mcg by mouth once daily ??? vitamin D, ergocalciferol, (DRISDOL) 43934 UNITS capsule Take 50,000 Units by mouth every 7 days 0 ??? zinc sulfate (ZINCATE) 50 MG capsule Take 220 mg by mouth once daily Allergies Allergen Reactions ??? Penicillins Skin Reactions and Swelling Past Medical History: Diagnosis Date ??? Actinic [...] MRSA (methicillin resistant staph aureus) culture positive 07/29/2017 07/29/17-Disc- tissue culture MRSA ??? Obstructive sleep apnea ??? VALENTINA (obstructive sleep apnea) ??? Other cirrhosis of liver ??? Peripheral neuropathy ??? Psoriasis ??? Seizures ??? Squamous cell carcinoma Past Surgical History: Procedure Laterality Date ??? Cataract Removal Bilateral ??? ENDOSCOPY, UPPER N/A 09/15/2017 N/A; ESOPHAGOGASTRODUODENOSCOPY (EGD) DIAGNOSTIC ??? HX JOINT REPLACEMENT ??? HX JOINT REPLACEMENT right hip 2005, left hip 2008 ??? Tracheostomy N/A 09/13/2017 N/A; TRACHEOSTOMY Social History Tobacco Use ??? Smoking status: Former Smoker Last attempt to quit: 06/06/1981 Years since quittin.6 ??? Smokeless tobacco: Never Used Substance Use Topics ??? Alcohol use: No Family History Problem Relation Age [...] Skin, Melanoma Neg Hx Review of Systems All other systems reviewed and pertinent positives and negatives noted in HPI Physical Exam Patient Vitals for the past 8 hrs: BP Temp Temp src Pulse Resp SpO2 Height Weight 02/03/19 0039 125/64 99 ??F (37.2 ??C) -- 87 18 99 % -- -- 02/02/194 -- -- -- 82 18 -- -- -- 02/02/19 2134 128/67 (!) 101.9 ??F (38.8 ??C) Oral 87 18 96 % -- -- 02/02/195 -- -- -- -- -- -- 5' 11 208 lb 02/02/199 -- -- Oral -- -- -- 5' 11.5 208 lb No intake or output data in the 24 hours ending 02/03/19 0154 General appearance: alert, cooperative, no distress Head: normocephalic, without trauma Throat: no mucous membrane abnormalities Neck: no masses Lungs: breath sounds normal and symmetric; no rales or wheezes Heart: regular rate and rhythm, normal S1 and S2, without murmurs, gallops or rubs Abdomen: soft without mass, non-tender, with normal bowel sounds Musculoskeletal: no edema Neurologic: no gross motor/sensory deficits Skin: no rashes Data Review . Recent Labs Component Name 02/03/19 0106 10/10/18 1515 09/19/17 0243 09/18/17 0003 WBC 14.2* 7.1 8.5 8.7 RBC 3.64* 3.94* 2.85* 3.09* HGB 9.9* 11.0* 8.1* 8.8* HCT 32.9* 34.5* 28.0* 29.6* MCV 90.4 87.6 98.2* 95.8 MCHC 30.1* 31.9* 28.9* 29.7* PLTCOUNT 241 183 208 199 NEUTPCT 79.6* - 79.2* 79.2* LYMPHPCT 4.7* 9.3 - - EOSINPCT - 4.2 - - BASOPHILPCT 0.4 0.6 - - GRANSIMMPCT 0.5 - - - NEUTABS 11.28* - 6.8 6.9 LYMPHABS 0.66* - - - BASOABS 0.05 - - - . Recent Labs Component Name 02/03/19 0106 09/19/17 0243 09/18/17 0003 09/06/17 1157 09/04/17 0447 SODIUM 134* - - - - - POTASSIUM 4.3 4.9* 3.4* - 3.8 4.9* CHLORIDE 101 - - - - - CO2 25 34* 35* - 20* 27 BUN 19 26 25 - 21 11 CREATININE 1.22* 0.6 0.6 - 0.7 0.6 GLUCOSE 112* - - - - - CALCIUM 9.5 9.1 9.0 - 8.5 8.4 ALT 21 - - - 10 12 ALKPHOS 304* - - - 204* 190* AST 20 - - - 21 27 TBIL 1.0 - - - - - TPROT 7.0 - - - - - EGFR 59 >60 >60 - >60 >60 EGFRAFR >60 - - - - - - = values in this interval not displayed. CXR from outside hospital - mild aorta atherosclerosis, no effusions/pneumonia CT right hip: multiloculated fluid collection likely abscess Chart review: Last admission September 2017 for hypoxic resp failure from mucous plugging requiring bronchoscopy and drainage by IR of left pleural effusion (transudative). U/S abdomen: Hepatic cirrhosis without discrete hepatic lesion or intrahepatic biliary dilation. Patent hepatic vasculature. CT chest: 1. Grossly unchanged small to moderate left and small right loculated pleural effusions/empyema. Hypoattenuating foci within the consolidated-collapsed left lower lobe likely represent necrotizing pneumonia. Debris is identified in the left lower lobe bronchus. ?? 2. Few new right pulmonary nodules measuring up to 5 mm which may represent infectious/inflammatoryprocesses given the rapid development. Attention on follow-up is recommended. ?? 3. 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 Impression/plan 1. Sepsis due to abscess of right hip replacement - concerning for MRSA given hx of MRSA bacteremiaand spinal abscess 2018 - blood cx pending, check lactic acid, started IV vancomycin and cefepime -elevated esr and crp - [facility] consulted 2. Atrial fibrillation - hold eliquis for potential interventions - on toprol 3. Hx CAD - on asa, toprol 4. COPD - stable - continue home inhaler regimen, albuterol nebs 5. Hx DVT - on eliquis 6. Cirrhosis - due to RAYGOZA - seen by GI outpt - EGD no varices 2017 7. VALENTINA - bipap qhs The patient is admitted with a diagnosis or diagnoses of Sepsis due to to abscess of right hip replacement and current medical needs include Orthopedics consultation, IV antibiotics, IVFs, blood cultures. The patient has the following complex medical factors: COPD, afib, CAD, hx DVT, cirrhosis, VALENTINA. documented in this encounter Consult Notes * Kristan Geller RN - 02/13/2019 1:34 PM CDT Chart review and patient assessment completed prior to ordered PICC insertion. PICC is vascular access device of choice due to: __x__ Need for IV medication after discharge from hospital ____ Pt has medications ordered requiring central tip venous access ____ Pt has inadequate peripheral vessels to support delivery of needed IV medications ____ Pt has inadequate peripheral vessels to support frequency of needed blood draws Patient physical assessment completed. Informed consent obtained after risks, benefits, alternatives explained. PICC line placed by Vascular Access Team as requested. All internal stiffening stylets and/or guidance wires removed without resistance. Estimated blood loss less than 10 ml, hemostasis achieved at insertion site, sterile dressing applied. Each lumen of PICC flushed with normal saline with positive blood return. Provided patient education See Doc Flow sheets for further details. * Raysa Nevarez MD - 02/12/2019 3:38 PM CDT Infectious Diseases Consult Note Patient's Primary Care Physician: Briana Medeiros MD Reason for Consultation: Right total hip arthroplasty infection Referring Physcian: Lilly Jurado APRN-COLOR FINISHER Name: José Miguel Keys Age: [age] year old 10 The patient is a 68 y/o man with h/o MRSA sepsis treated at [facility] last year, complicated with epidural abscess. He was eloina n lTACh several months. Patient presented with right hip pain, subjective fever,no weight loss. He was taken to surgery and underwent I&D on February 04. Intra-operative cultures were positive for MRSA. He received vancomycin and infectious disease was requested for further recommendations. Past Medical History: Diagnosis Date ??? Actinic [...] basilic ??? Seizures ??? Squamous cell carcinoma Review of Systems GEN: No fevers, chills, night sweats, fatigue, or weight change SKIN: No itching, rashes, sores HEENT: No TRAN, change in vision, taste, or hearing. No epistaxis. No oral or nasal ulcers. CV: No chest pain, pressure, palpitations, or dyspnea on exertion. PULM: No SOB, wheeze, cough, asthma. GI: No change in appetite. No nausea, vomiting, constipation, diarrhea. No blood in stool. No abdominal pain. : No blood in urine. MSK: Right hip pain NEURO: No numbness, tingling, or weakness. ENDO: No heat/cold intolerance. EXT: No LE swelling PSYCH: No depression or anxiety. ?? Exam Vitals: 02/12/19 0600 02/12/19 0816 02/12/19 0857 02/12/19 1357 BP: 114/51 Pulse: 92 95 92 Resp: 16 16 18 Temp: 97.8 ??F (36.6 ??C) SpO2: 97% 99% 99% Weight: 101 kg (222 lb 9.6 oz) Height: Temp (30hrs) Max:98.4 ??F (36.9 ??C) General appearance: Alert, does not look ill Lungs: Resonant, decreased air entry Heart: regular rate and rhythm, S1, S2 normal, no murmur, click, rub or gallop, Abdomen: Soft, not tender no hepatosplenomegaly Extremities: Right hip bandaged Skin: no rash/lesion Neuro exam no cranial nerve abnormalities no motor deficit Lines: MEDICATIONS FOR CURRENT ENCOUNTER: ?? SCHEDULED MEDICATIONS: ?? 0.9% NaCl injection 10 mL, Intracatheter, q8h ?? albuterol (PROVENTIL;VENTOLIN) (2.5 MG/3ML) 0.083% nebulizer solution 2.5 mg, Inhalation, q6h ?? ascorbic acid (VITAMIN C) tablet 500 mg, Oral, BID ?? aspirin tablet 325 mg, Oral, BID ?? budesonide-formoterol (SYMBICORT) 160-4.5 MCG/ACT inhaler 2 puff, Inhalation, BID ?? clotrimazole (LOTRIMIN AF) 1 % cream, Topical, BID ?? cyanocobalamin (VITAMIN B-12) tablet 500 mcg, Oral, QDAY ?? metoprolol tartrate (LOPRESSOR) tablet 25 mg, Oral, BID ?? morphine CR 12hr (MS CONTIN) tablet 15 mg, Oral, q12h ?? pantoprazole EC (PROTONIX) tablet 40 mg, Oral, QDAY ?? polyethylene glycol 3350 (MIRALAX) packet 17 g, Oral, QDAY ?? senna-docusate (SENOKOT-S) tablet 2 tablet, Oral, QDAY ?? tamsulosin (FLOMAX) capsule 0.4 mg, Oral, AT BEDTIME ?? vancomycin (VANCOCIN) IV dose per pharmacy, Does not apply, DIRECTED ?? vancomycin HCl (VANCOCIN) 1,250 mg in 0.9% NaCl 250 mL IVPB, Intravenous, q24h ?? warfarin (COUMADIN) dose per pharmacy MISC, Other, QDay 1700 ?? warfarin (COUMADIN) tablet 6 mg, Oral, once warfarin ?? zinc sulfate (ZINCATE) capsule 220 mg, Oral, QDAY ?? [COMPLETED] warfarin (COUMADIN) tablet 5 mg, Oral, once warfarin Data Recent Labs Component Name 02/12/1931402/11/19 0242 02/10/19 031 WBC 9.3 10.3 10.1 HGB 7.5* 8.0* 7.9* HCT 26.0* 26.4* 26.1* PLTCOUNT 270 277 260 Recent Labs Component Name 02/12/1931402/11/19 0242 02/10/19317 SODIUM 139 137 139 POTASSIUM 3.5 3.5 3.8 CHLORIDE 105 101 105 CO2 27 27 26 BUN 19 21 20 CREATININE 0.99 1.00 1.16 GLUCOSE 114* 113* 108* CALCIUM 8.7 9.0 9.0 Recent Labs Component Name 02/03/19 0106 09/06/17 1157 09/04/17 0447 ALBUMIN 3.1* - - ALKPHOS 304* 204* 190* ALT 21 10 12 AST 20 21 27 TBIL 1.0 - - TPROT 7.0 - - No results for input(s): CDIFFTOXINAB in the last 14588 hours. No results for input(s): SEDRATE in the last 91155 hours. Recent Labs Component Name 08/15/17 0348 08/09/17 0745 08/05/17 0445 CRP 4.1* 32.0* 14.4* No results for input(s): CK in the last 52096 hours. .No results for input(s): VANCOTROUGH, VANCOPEAK, VANCSERIES in the last 62674 hours. Invalid input(s): VANCORAND Recent Labs Component Name 02/03/19 0106 07/14/17 2212 HGBA1C 5.8 6.3 Recent Labs Component Name 02/04/19 0617 08/26/17 1420 COLORUA Yellow - CLARITYUA Cloudy* - SPECGRAVUA 1.021 - PHUA 5.0 6.0 PROTEINUA Negative - BLOODUA Negative - LEUKOCYTEUA Negative - NITRITEUA Negative - GLUCOSEUA Negative - KETONEUA Trace* - BILIRUBINUA Negative - UROBILINUA Negative <2.0 RBCUA - 1 Microbiology Right hip cultures February 04 and with MRSA Radiology Assessment Right total hip arthroplasty infection status post I and D procedures on February 04 and Hardware was retained Prior history of MRSA bacteremia a year ago complicated with empyema and epidural abscess Diabetes mellitus Coronary artery disease Plan --vancomycin, will add rifampin if no more procedures are planned --PICC line today --will need weekly labs CBC, CMP, sed rate, C-reactive protein Please be advised that part of this text was done using voice recognition software. Errors may havebeen missed upon review. Raysa Nevarez MD * Tanner Naylor - 02/03/2019 2:54 PM CDTAssociated Order(s): IP CONSULT TO PASTORAL CARE Smt Operator responded to consult for prayer by visiting with Pt and family and offering prayer and spiritual care support. * Larry Alexander MD - 02/03/2019 5:33 AM CDTAssociated Order(s): IP CONSULT TO ORTHOPEDIC SURGERY Orthopaedic Surgery Consult Note José Miguel Keys [id number] K Ney Medeiros MD Date of service: 02/03/2019 Chief Complaint: No chief complaint on file. Subjective: José Miguel Keys is a 68 year old male who presents for evaluation of his right hip injury . Patient has had a weeks worth of worsening right hip with ambulation and at rest. He states he feels the pain deep in his right hip but also on the skin. He states he has been febrile recently but does not remember any specific number. He was seen at [facility] yesterday and found to be tachycardic and so was started on broad spectrum antibiotics. They also obtained a pelvis xray and CT of right femur He notably has had bilateral ARNALDO performed with the right performed in 2005 and the left in 2010. No complaints on the left ARNALDO. His primary surgeon has since moved to [place] according to the patient. Dr. Amos at [facility] did not feel comfortable managing this patient. The patient has prior history of MRSA with an epidural abscess treated surgically 2017 at [facility]. He also has afib for which he is on xarelto and a history of a SD. He has VALENTINA and wears a CPAP at night. Denies numbness or tingling in the affected extremity. ROS otherwise negative. Low albumin and elevated inflammatory markers Temp:101.9 WBC: 14.2 ESR: 110 CRP: 6.8 Past Medical History: Diagnosis Date ??? Actinic [...] MRSA (methicillin resistant staph aureus) culture positive 07/29/2017 07/29/17-Disc- tissue culture MRSA ??? Obstructive sleep apnea ??? VALENTINA (obstructive sleep apnea) ??? Other cirrhosis of liver ??? Peripheral neuropathy ??? Psoriasis ??? Seizures ??? Squamous cell carcinoma Past Surgical History: Procedure Laterality Date ??? Cataract Removal Bilateral ??? ENDOSCOPY, UPPER N/A 09/15/2017 N/A; ESOPHAGOGASTRODUODENOSCOPY (EGD) DIAGNOSTIC ??? HX JOINT REPLACEMENT ??? HX JOINT REPLACEMENT right hip 2005, left hip 2008 ??? Tracheostomy N/A 09/13/2017 N/A; TRACHEOSTOMY has a current medication list which includes the following prescription(s): acetaminophen, albuterol, ascorbic acid, aspirin, baclofen, bumetanide, diphenhydramine, eliquis, ferrous sulfate, lidocaine, metoprolol succinate xl 24hr, nystatin, omeprazole, oxygen, roflumilast, symbicort, tamsulosin, tr iamcinolone acetonide, vitamin b-12, vitamin d (ergocalciferol), and zinc sulfate, and the following Facility-Administered Medications: 0.9% nacl, acetaminophen, albuterol, ascorbic acid, aspirin, baclofen, budesonide- formoterol, cefepime (MAXIPIME) 2,000 mg in 0.9% NaCl 50 mL IVPB, cyanocobalamin,fentanyl (pf), metoprolol succinate xl 24hr, ondansetron, pantoprazole ec, tamsulosin, vancomycin (vancocin) iv dose per pharmacy, vancomycin HCl (VANCOCIN) 1,500 mg in 0.9% NaCl 500 mL IVPB, and zinc sulfate. Allergies as of 02/02/2019 - Reviewed 02/02/2019 Allergen Reaction Noted ??? Penicillins Skin Reactions and Swelling 07/14/2017 Family History Problem Relation Age of Onset ??? Coronary Artery Disease Mother age 65 ??? Cirrhosis Father ??? Cancer - Breast Neg Hx ??? CVA Neg Hx ??? Hemophilia Neg Hx ??? Cancer - Other Neg Hx ??? Eczema Neg Hx ??? Psoriasis Neg Hx ??? Cancer - Skin, Non Melanoma Neg Hx ??? Cancer - Skin, Melanoma Neg Hx Social History Tobacco Use ??? Smoking status: Former Smoker Last attempt to quit: 06/06/1981 Years since quittin.6 ??? Smokeless tobacco: Never Used Substance Use Topics ??? Alcohol use: No Review of Systems: History obtained from chart review and the patient. A 12 point ROS was obtained and was negative except for that listed above. Physical Exam: BP 123/72 Pulse 80 Temp 98.9 ??F (37.2 ??C) Resp 18 Ht 1.803 m (5' 11 ) Wt 94.3 kg (208 lb) SpO2 99% BMI 29.01 kg/m2 General appearance: alert, cooperative, no distress Neuro: normal throughout axial and appendicular musculature Lungs: breath sounds normal and symmetric; no rales or wheezes Heart: normal S1 and S2 Abdomen: soft without mass, non-tender, with normal bowel sounds Spine: spine normal, symmetric Extremities: Left Lower Extremity: Skin warm/dry/intact. No abrasions or lacerations. Nontender over hip, knee, or ankle. No pain with log roll. Able to range hip, knee, ankle without pain or crepitus. Sensation intact to Deep Peroneal, Superficial Peroneal, saphenous, sural and plantar nerve distributions. TA,EHL, FHL, G-S intact. Toes warm and pink, cap refill <2 seconds. Can IR hip to 20 degrees and ERhip to 40 degrees Right Lower Extremity: Skin warm/dry/intact. Erythema and edema along anterior and lateral aspect of right hip No abrasions or lacerations. Moderate tenderness to palpation over right hip. ROM limited secondary to pain. Moderate swelling of right hip. Not open. Sensation intact to Deep Peroneal, Superficial Peroneal, saphenous, sural and plantar nerve distributions. TA, EHL, FHL, G-S intact. Toeswarm and pink, cap refill <2 seconds. Patient able to IR hip 15 degrees and ER 20 degrees. Radiology: XRs of Right hip and pelvis demonstrate bilateral ARNALDO. There is questionable lucency around distal aspect of right stem that appears increased compared to left side. There are spot welds present. CT of right hip demonstrates fluid collection in gluteal muscles that appears to extend from joint to almost the skin laterally. Exam is limited by metal artifact but there appears to be osteolysis along the superior and medial aspect of the acetabulum adjacent to the cup. Labs: Recent Results (from the past 12 hour(s)) LACTIC ACID BLOOD Collection Time: 02/02/19 10:38 PM Result Value Ref Range Lactic Acid 0.9 0.5 - 2.2 mmol/L LACTIC ACID BLOOD Collection Time: 02/03/19 1:06 AM Result Value Ref Range Lactic Acid 0.8 0.5 - 2.2 mmol/L CBC W AUTO DIFFERENTIAL Collection Time: 02/03/19 1:06 AM Result Value Ref Range WBC 14.2 (H) 4.4 - 10.7 x10E9/L WBC Corrected RBC 3.64 (L) 3.80 - 5.40 x10E12/L Hemoglobin 9.9 (L) 12.0 - 17.6 gm/dL Hematocrit 32.9 (L) 35.2 - 51.7 % MCV 90.4 80.7 - 98.3 fl MCH 27.2 26.7 - 34.0 pg MCHC 30.1 (L) 30.8 - 35.9 gm/dL Platelet Count 241 153 - 416 x10E9/L RDW-CV 15.9 (H) 12.1 - 14.9 % MPV 12.1 9.4 - 12.9 fl Neutrophils % 79.6 (H) 44.0 - 73.0 % Lymphocytes % 4.7 (L) 20.0 - 43.0 % Monocytes % 9.6 5.0 - 13.0 % Eosinophils % 5.2 0.0 - 6.0 % Basophils % 0.4 0.0 - 2.0 % Immature Granulocytes 0.5 0 - 1 % Neutrophil Absolute 11.28 (H) 2.01 - 7.14 x10E9/L Lymphocytes Absolute 0.66 (L) 1.07 - 3.94 x10E9/L Monocytes Absolute 1.36 (H) 0.26 - 1.07 x10E9/L Eosinophils Absolute 0.73 (H) 0 - 0.47 x10E9/L Basophils Absolute 0.05 0 - 0.08 x10E9/L Immature Granulocytes Absolute 0.07 (H) 0.00 - 0.06 x10E9/L nRBC Auto 0 /100 WBC COMPREHENSIVE METABOLIC PANEL Collection Time: 02/03/19 1:06 AM Result Value Ref Range Glucose 112 (H) 74 - 106 mg/dL Sodium 134 (L) 136 - 145 mmol/L Potassium 4.3 3.5 - 5.1 mmol/L Chloride 101 98 - 107 mmol/L CO2 25 23 - 31 mmol/L Calcium 9.5 8.4 - 10.2 mg/dL Anion Gap 8 8 - 16 mmol/L BUN 19 8.4 - 25.7 mg/dL Creatinine 1.22 (H) 0.73 - 1.18 mg/dL Alkaline Phosphatase 304 (H) 40 - 150 U/L ALT 21 13 - 61 U/L AST 20 5 - 34 U/L Protein Total 7.0 6.4 - 8.3 gm/dL Albumin 3.1 (L) 3.2 - 4.6 gm/dL Bilirubin Total 1.0 0.2 - 1.2 mg/dL eGFR by MDRD 59 mL/min/1.73m2 eGFR by MDRD >60 mL/min/1.73m2 PT-INR Collection Time: 02/03/19 1:06 AM Result Value Ref Range PT 11.3 9.5 - 11.6 sec INR 1.1 0.9 - 1.1 LACTIC ACID BLOOD Collection Time: 02/03/19 4:13 AM Result Value Ref Range Lactic Acid 0.7 0.5 - 2.2 mmol/L Assessment: 1. 68 year old male s/p 2006 OSH R ARNALDO with likely infected right ARNALDO. Active Problems: Infection of right prosthetic hip joint Plan: 1. Weight bearing: right lower extremity: NWB 2. Questions solicited and answered. 3. Recommend elevation of extremity in order to decrease swelling. 4. Patient/family voiced understanding to info/instructions given. 5. Pain control as needed. 6. Will plan for aspiration of patients right hip tomorrow to eval for infectious versus particle disease 7. Consent ordered 8. Please make NPO at midnight 9. Needs medical optimization and clearance 10. Please page ortho with questions Patient seen and examined with resident. I confirm history, exam, assessment and plan. In addition I note: Pt transferred to tertiary center for eval of infected R ARNALDO, hx of B ARNALDO by Dr. Montilla who was fired from his position and noone feels comfortable taking over care of his patients locally R hip pain for weeks, likely chronic infection due to epidural abscess with MRSA in July treated by Dr. 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 Current Outpatient Medications on File Prior to Encounter Medication Sig Dispense Refill ??? acetaminophen (TYLENOL) 325 MG tablet Take 650 mg by mouth every 4 hours as needed ??? albuterol (PROVENTIL;VENTOLIN) (5 MG/ML) 0.5% nebulizer solution 2.5 mg. 1 Box 11 ??? Ascorbic Acid 500 MG Take 500 mg by mouth 2 times daily ??? aspirin (ASPIRIN) 81 MG tablet Take 81 mg by mouth DAILY. ??? baclofen (LIORESAL) 10 MG tablet Take 10 mg by mouth 2 times daily 0 ??? bumetanide (BUMEX) 0.5 MG tablet Take 0.5 mg by mouth 2 times daily ??? diphenhydrAMINE (BENADRYL) 25 MG capsule Take 25 mg by mouth every 6 hours as needed for Itching ??? ELIQUIS 5 MG tablet Take 5 mg by mouth 2 times daily 3 ??? ferrous sulfate 325 (65 FE) MG tablet Take 325 mg by mouth daily with breakfast ??? lidocaine (LIDODERM) 5 % patch Apply 2 patches to skin DAILY. 10 patch 11 ??? metoprolol succinate XL 24hr (TOPROL XL) 50 MG tablet Take 50 mg by mouth once daily ??? nystatin (MYCOSTATIN) 865497 UNIT/GM powder APPLY TO AFFECTED AREA TWICE A DAY 3 ??? omeprazole (PRILOSEC) 40 MG capsule Take 40 mg by mouth daily before breakfast ??? Oxygen Use 1 L as directed 1 LITER AT BEDTIME AND PRN ??? roflumilast (DALIRESP) 500 MCG tablet Take 500 mcg by mouth once daily ??? SYMBICORT 160-4.5 MCG/ACT inhaler INHALE 2 PUFFS BY MOUTH TWICE A DAY 6 ??? tamsulosin (FLOMAX) 0.4 MG capsule Take 0.4 mg by mouth at bedtime 1 ??? triamcinolone acetonide (KENALOG) 0.1 % cream APPLY A THIN LAYER TOPICALLY FOUR TIMES DAILY TO THE AFFECTED AREA 3 ??? vitamin B-12 (CYANOCOBALAMIN) 500 MCG tablet Take 500 mcg by mouth once daily ??? vitamin D, ergocalciferol, (DRISDOL) 51502 UNITS capsule Take 50,000 Units by mouth every 7 days 0 ??? zinc sulfate (ZINCATE) 50 MG capsule Take 220 mg by mouth once daily Past Medical History: Diagnosis Date ??? Actinic [...] MRSA (methicillin resistant staph aureus) culture positive 07/29/2017 07/29/17-Disc- tissue culture MRSA ??? Obstructive sleep apnea ??? VALENTINA (obstructive sleep apnea) ??? Other cirrhosis of liver ??? Peripheral neuropathy ??? Psoriasis ??? Seizures ??? Squamous cell carcinoma Past Surgical History: Procedure Laterality Date ??? Cataract Removal Bilateral ??? ENDOSCOPY, UPPER N/A 09/15/2017 N/A; ESOPHAGOGASTRODUODENOSCOPY (EGD) DIAGNOSTIC ??? HX JOINT REPLACEMENT ??? HX JOINT REPLACEMENT right hip 2005, left hip 2008 ??? Tracheostomy N/A 09/13/2017 N/A; TRACHEOSTOMY 15 Point review of systems was otherwise negative as reviewed today. Social History Occupational History ??? Not on file Tobacco Use ??? Smoking status: Former Smoker Last attempt to quit: 06/06/1981 Years since quittin.6 ??? Smokeless tobacco: Never Used Substance and [...] ??? Cancer - Skin, Melanoma Neg Hx PE: Pt in mild resp distress, getting breathing tx, and daughter in room Awake and alert Cooperative with exam Pain with any right hip ROM, TTP over greater troch, healed right hip scar Distal DF/PF ankle/toesR LE + [facility] Xrays - R femur/hip and CT from OSH R HIP - + R ARNALDO with lucency around femoral component and acetabular component, + osteolysis on CT around acetabulum, large fluid collection from prosthesis to subQ tissue A/P Infected right total hip arthroplasty, likely chronic - Will proceed with right hip irrigation and debridement with wound vac placement and possible antibiotic beads tomorrow am to prevent systemic sepsis once medically stable, will make further treatment plans for resection arthroplasty vs retention of components based on cultures and intraoperative a ppearance, NPO at id, hold eliquis, pain control, abx per ID documented in this encounter OR Notes * Operative - Larry Alexander MD - 02/08/2019 3:01 PM CDT [facility] Operative Report PATIENT NAME: JOSÉ MIGUEL KEYS MR#: [id number] DATE OF : 1950 CSN: [id number] DATE OF ADMISSION: 02/02/2019 ROOM#: [facility] DATE OF OPERATION: 02/08/2019 PREOPERATIVE DIAGNOSIS: Infected right total hip arthroplasty, status post previous irrigation and debridement with wound VAC application. POSTOPERATIVE DIAGNOSIS: Infected right total hip arthroplasty, status post previous irrigation and debridement with wound VAC application with clean appearing tissues. PROCEDURES: 1. Revision right total hip arthroplasty both components, femoral head and acetabular polyethylene. 2. Excision of greater trochanteric bursa right hip. 3. Delayed primary closure right hip, complex surgical wound. SURGEON: Frandy Alexander M.D. MILIEU THERAPIST: Alberto Wakefield MD. ANESTHESIA: General. INDICATIONS FOR PROCEDURE: The patient is a 68-year-old man, who has had bilateral hip arthroplasties by another surgeon, who became infected and was transferred to [facility] for a tertiary level of care. He had previously undergone irrigation and debridement of the right hip with placement of wound VACs. He now returns for the above-named procedures. We did discuss risks and benefits of prosthetic retention with positive cultures for methicillin-resistant staph aureus. We discussed resection arthroplasty with placement of antibiotic cement spacer versus retention of components with revision of modular components, and they wished to proceed with revision of modular components and with the knowledge that if this fails, he would need to have extended trochanteric osteotomy for removal of his well-fixed femoral component, as well as removal of the acetabular component and placement of an antibiotic cement spacer. Consents were obtained. DESCRIPTION OF PROCEDURE: What was done, the patient was brought to the operating room, induced under general anesthesia, placed in the left side down lateral decubitus position with an axillary roll in the left chest wall, and the left leg well padded. All bony prominences were well padded. After appropriate time-out, verifying surgical site and comorbidities, 4 wound VAC sponges were removed from the wound and the right hip was prepped and draped in usual sterile fashion with alcohol and ChloraPrep. He received antibiotics per the SCIP protocol as well as a gram of tranexamic acid at the start of the procedure and another at closure. After appropriate time-out, verifying surgical site and comorbidities, we placed a Charnley retractor deep to the fascia and then internally rotated and dislocated the hip. We removed the femoral head and then placed a Cobra retractor over the anterior rim of the acetabulum. The acetabular polyethylene was then removed with an osteotome after clearing soft tissue from the periphery of the acetabular component. A new lipped liner for the 36 mm head was then placed in the posterior superior position and impacted and it sat flush as noted previously. Attention was directed to the femoral stem, where all surrounding soft tissue at the top of the femoral stem was removed, and we did place an extraction device and screwed into the shoulder of the prosthesis, after clearing all bone from the shoulder of the prosthesis and did use a slap hammer to ensure that the stem was solidly fixed in the bone and it was with no obvious micromotion or motion of the stem with back slapping. With the slap hammer placed, we could rotate the entire femur with internal and external motion of the slap hammer indicating excellent fixation. Prior to placing the new polyethylene insert, we did scrub the titanium shell with Betadine scrub brush and soaked it for 3 minutes with dilute Betadine solution, and we did the same for the femoral neck metallic segment that was visible. We thoroughly scrubbed it with Betadine scrub brush as well as soaked it with dilute Betadine solution, and we then irrigated both the components with vancomycin impregnated saline in the Pulsavac. A new 36 mm +0 femoral head was then impacted onto the stem and it sat and had excellent purchase. There was not a ceramic sleeved implant available, so we did use a cobalt chrome head. The hip was reduced and taken through range of motion and was stable as noted previously. With internal rotation past 40 degrees without any subluxation or dislocation, basically he was very stiff and the hip would just stop at about 30-40 degrees of internal rotation. We then finished irrigation and excised the greater trochanteric bursa overlying the vastus lateralis and the abductor mechanism. We removed 2 nonabsorbable sutures from the anterior aspect of the greater trochanter, as he likely had an anterolateral approach performed previously when he had his hip placed initially. We did thoroughly irrigate and debride the sinus tract anteriorly, which was noted and then we closed the fascia with #3 Vicryl sutures interrupted, followed by 2-0 Vicryl for the subcutaneous tissues, and skin diogenes for the skin. A gram of vancomycin was placed deep into the hip and in the more superficial soft tissues prior to closure. The patient was then placed into an abduction pillow, awakened from general anesthesia, and taken to recovery room in stable condition. There were no complications. SPECIMENS: None. DRAINS: None. ESTIMATED BLOOD LOSS: 400 mL. DISPOSITION: To recovery room in stable condition. COUNTS: Sponge and needle counts were correct at the end of the procedure and I was present for the entire case. NAME: JOSÉ MIGUEL KEYS DICTATOR: FRANDY ALEXANDER M.D. DICTATED FOR: PERRY/GURWINDER JOB ID: [id number] Operative Report * Brief Op Note - Alberto Shell MD - 02/08/2019 11:51 AM CDT Brief Op Note Procedure: REVISION HIP ARTHROPLASTY BOTH COMPONENT, EXCISION BURSA (BURSECTOMY) TROCHANTERIC/HIP, CLOSURE PRIMARY DELAYED/SECONDARY (ANY AREA) Patient Name: José Miguel Keys Date of Service: 02/08/2019 Pre-Op Diagnosis: Infected Right ARNALDO, cultures positive for MRSA Post-Op Diagnosis: same Surgeon(s) and Role: * Larry Alexander MD - Primary Steam Station Supervisor(s): Alberto Shell MD Anesthesia Type: general Complications: none Findings: Well fixed femoral stem EBL: 400 mL Urine Output : 250 mL IV Fluid Intake: Please see anesthesia notes Drains: GJ Tube Percutaneous Endoscopic Gastrostomy Abdomen;Left (Active) Specimen(s): none Alberto Shell MD * Operative - Larry Alexander MD - 02/04/2019 12:19 PM CDT [facility] Operative Report PATIENT NAME: JOSÉ MIGUEL KEYS MR#: [id number] DATE OF : 1950 CSN: [id number] DATE OF ADMISSION: 02/02/2019 ROOM#: [id number] DATE OF OPERATION: 02/04/2019 PREOPERATIVE DIAGNOSIS: Infected right total hip arthroplasty. POSTOPERATIVE DIAGNOSIS: Infected right total hip arthroplasty. PROCEDURES: 1. Irrigation and debridement with arthrotomy, infected right hip Arthroplasty. 2. Irrigation and debridement of infected right hip trochanteric bursa 2. Wound VAC application, right hip. SURGEON: Frandy Alexander M.D. MILIEU THERAPIST: Jason Blackburn MD. ANESTHESIA: General. INDICATION FOR PROCEDURE: The patient is a 68-year-old man, who presented with a several week history of right hip pain. Outside x-rays and CT scans revealed a likely infected hip arthroplasty with elevated inflammatory markers and a large soft tissue collection around the right hip. He has had a history of an epidural abscess with MRSA previously. Risks, benefits, and alternatives were discussed with the patient at length, and he wished to proceed with the above-named procedures. Physical exam revealed a very red swollen right hip with a healed scar from his previous procedure, which was years ago. Consents were obtained. DESCRIPTION OF PROCEDURE: What was done, the patient was brought to the operating room, induced under anesthesia, placed in the left side down lateral decubitus position with an axillary roll in the left chest wall, and the left leg well-padded. All bony prominences were well padded. Pegboard was used for positioning. After appropriate time-out, verifying surgical site and comorbidities, a #10 blade was used to create the posterolateral incision through his old scar. Dissection was carried down to the fascia, but as we approached the fascia, there was a rent in it proximally and abundant purulent fluid was under pressure and sprayed into the air. We did culture this for aerobic and anaerobic culture. We thoroughly decompressed this large abscess/infected hip. There was very poor landmarks and very poor soft tissue planes indicating this is likely chronic. We then debrided any necrotic gluteus rufus muscle, which was not contractile. We thoroughly irrigated the hip with 3 L of saline with the Pulsavac. We did send some tissue from the hip joint as well. We removed the posterolateral tissues from the greater trochanter and pseudocapsule and then debrided deep down into the hip joint as well and the implant was visualized. After sending both the swabs and the tissue cultures, we placed 4 wound VAC sponges into the wound and there was a large tracking anteriorly of the abscess as well. This was surrounding the abductor mechanism. There was some gluteus medius anteriorly, which had been eaten through by the infection. One wound VAC sponge was placed anteriorly, 1 into the hip joint, 1 more superficial and then 1 in the subcutaneous tissues, and then it was covered with adhesive and placed to suction. The patient was then awakened from general anesthesia and taken to the recovery room in stable condition. There were no complications. SPECIMENS: We sent cultures as noted above. Both tissue and swabs. DRAINS: Four wound VAC sponges were cut and placed into the wound and placed to suction. ESTIMATED BLOOD LOSS: Less than 100 mL. DISPOSITION: To recovery room in stable condition. COUNTS: Sponge and needle counts were correct at the end of the procedure and I was present for the entire case. NAME: JOSÉ MIGUEL KEYS DICTATOR: FRANDY ALEXANDER M.D. DICTATED FOR: PERRY/GURWINDER JOB ID: [id number] Operative Report * Brief Op Note - Jason Blackburn MD - 02/04/2019 11:56 AM CDT Brief Op Note Procedure: RIGHT HIP IRRIGATION AND DEBRIDEMENT, WOUND VAC PLACEMENT Patient Name: José Miguel Kramer Ludmila Date of Service: 02/04/2019 Pre-Op Diagnosis: right infected ARNALDO Post-Op Diagnosis: same Surgeon(s) and Role: * Larry Alexander MD - Primary Steam Station Supervisor(s): Jason Blackburn MD Anesthesia Type: general Complications: none Findings: Gross purulence with deep tracks. EBL: minimal blood loss Drains: GJ Tube Percutaneous Endoscopic Gastrostomy Abdomen;Left (Active) Specimen(s): tissue and fluid cultures Jason Blackburn MD documented in this encounter Plan of Treatment Upcoming Encounters Date Type Department Care Team (Late st Contact Info) Description 07/09/2024 12:30 PM MANAGER DISTRIBUTION Office Visit [facility] - [address] [phone] Twin Miller MD [address] [facility] [place] [address] 09/19/2024 2:00 PM CDT Office Visit [facility] - Orthopedic Surgery [address] [facility] [place] [phone] Larry Alexander MD [address] [facility] [address] [place] [address] Scheduled Orders Name Type Priority Associated Diagnoses Order Schedule INITIATE RT BRONCHODILATOR PROTOCOL Respiratory Care Routine ONCE for 1 Occurrences starting 02/02/2019 until 02/02/2019 PULSE OXIMETRY, SPOT Respiratory Care Routine ONCE for 1 Occurrences starting 02/02/2019 until 02/02/2019 documented as of this encounter Procedures Procedure Name Priority Date/Time Associated Diagnosis Comments CARDIAC RHYTHM STRIP ORDER 02/27/2019 12:56 AM CDT VANCOMYCIN LEVEL TROUGH Timed 02/15/2019 4:50 PM CDT PT-INR AM Draw 02/15/2019 3:07 AM CDT CBC W AUTO DIFFERENTIAL AM Draw 02/15/2019 3:07 AM CDT BASIC METABOLIC PANEL (CALCIUM TOTAL) AM Draw 02/15/2019 3:07 AM CDT PT-INR AM Draw 02/14/2019 3:46 AM CDT BASIC METABOLIC PANEL (CALCIUM TOTAL) AM Draw 02/14/2019 3:46 AM CDT CBC W AUTO DIFFERENTIAL AM Draw 02/14/2019 2:58 AM CDT XR CHEST POST PROCEDURE STAT 02/13/2019 3:03 PM CDT PICC (peripherally inserted central catheter) in place PT-INR AM Draw 02/13/2019 4:40 AM CDT CBC W AUTO DIFFERENTIAL AM Draw 02/13/2019 4:40 AM CDT BASIC METABOLIC PANEL (CALCIUM TOTAL) AM Draw 02/13/2019 4:40 AM CDT HOME CPAP/BIPAP FOR HOSP USE: NOCTURNAL 02 Routine 02/13/2019 12:01 AM CDT VANCOMYCIN LEVEL TROUGH Timed 02/12/2019 9:22 AM CDT PT-INR AM Draw 02/12/2019 3:15 AM CDT CBC W AUTO DIFFERENTIAL AM Draw 02/12/2019 3:15 AM CDT BASIC METABOLIC PANEL (CALCIUM TOTAL) AM Draw 02/12/2019 3:15 AM CDT HOME CPAP/BIPAP FOR HOSP USE: NOCTURNAL 02 Routine 02/12/2019 12:00 AM CDT PT-INR STAT 02/11/2019 2:34 PM CDT CBC W AUTO DIFFERENTIAL AM Draw 02/11/2019 2:42 AM CDT BASIC METABOLIC PANEL (CALCIUM TOTAL) AM Draw 02/11/2019 2:42 AM CDT CBC W AUTO DIFFERENTIAL AM Draw 02/10/2019 3:18 AM CDT BASIC METABOLIC PANEL (CALCIUM TOTAL) AM Draw 02/10/2019 3:18 AM CDT HOME CPAP/BIPAP FOR HOSP USE: NOCTURNAL 02 Routine 02/10/2019 12:01 AM CDT CBC W AUTO DIFFERENTIAL AM Draw 02/09/2019 2:30 AM CDT BASIC METABOLIC PANEL (CALCIUM TOTAL) AM Draw 02/09/2019 2:30 AM CDT HOME CPAP/BIPAP FOR HOSP USE: NOCTURNAL 02 Routine 02/09/2019 12:01 AM CDT MA SECD CLOS SURG WND EXTEN/COMPLIC 02/08/2019 10:34 AM CDT Diagnosis unknown Special Needs #### 004 ### / NEEDS OEC C-ARM, OLD MORENITA TABLE / NEEDS WOUND VAC SUPPLIES--ITEMS KEPT IN O.R. SUPPLY ROOM; NEEDS WOUND VAC MACHINE FROM PATIENT'S ROOM SENT TO SURGERY WITH PATIENT--02/06 KW / NEEDS OTTO AND NEPHEW--REP. NOTIFIED BY SURGEON PER VARSHA RODRIGUEZ (DR. Laura SHELL)--02/06 KW EXCISION BURSA (BURSECTOMY) TROCHANTERIC/HIP 02/08/2019 10:34 AM CDT Diagnosis unknown Special Needs #### 004 ### / NEEDS OEC C-ARM, OLD MORENITA TABLE / NEEDS WOUND VAC SUPPLIES--ITEMS KEPT IN O.R. SUPPLY ROOM; NEEDS WOUND VAC MACHINE FROM PATIENT'S ROOM SENT TO SURGERY WITH PATIENT--02/06 KW / NEEDS OTTO AND NEPHEW--REP. NOTIFIED BY SURGEON PER VARSHA RODRIGUEZ (DR. Laura SHELL)--02/06 KW ARTHROPLASTY TOTAL HIP REVISION 02/08/2019 10:34 AM CDT Diagnosis unknown Special Needs #### 004 ### / NEEDS OEC C-ARM, OLD MORENITA TABLE / NEEDS WOUND VAC SUPPLIES--ITEMS KEPT IN O.R. SUPPLY ROOM; NEEDS WOUND VAC MACHINE FROM PATIENT'S ROOM SENT TO SURGERY WITH PATIENT--02/06 KW / NEEDS TOTO AND NEPHEW--REP. NOTIFIED BY SURGEON PER VARSHA RODRIGUEZ (DR. Laura SHELL)--02/06 KW TYPE + SCREEN PANEL Routine 02/08/2019 8 :57 AM CDT CBC W AUTO DIFFERENTIAL AM Draw 02/08/2019 2:56 AM CDT BASIC METABOLIC PANEL (CALCIUM TOTAL) AM Draw 02/08/2019 2:56 AM CDT HOME CPAP/BIPAP FOR HOSP USE: NOCTURNAL 02 Routine 02/08/2019 12:01 AM CDT SLIDE SCAN HEMATOLOGY Routine 02/07/2019 4:09 AM CDT CBC W AUTO DIFFERENTIAL AM Draw 02/07/2019 4:09 AM CDT BASIC METABOLIC PANEL (CALCIUM TOTAL) AM Draw 02/07/2019 4:09 AM CDT VANCOMYCIN LEVEL RANDOM Timed 02/07/2019 4:09 AM CDT HOME CPAP/BIPAP FOR HOSP USE: NOCTURNAL 02 Routine 02/07/2019 12:01 AM CDT CBC W AUTO DIFFERENTIAL AM Draw 02/06/2019 4:19 AM CDT BASIC METABOLIC PANEL (CALCIUM TOTAL) AM Draw 02/06/2019 4:19 AM CDT VANCOMYCIN LEVEL RANDOM Timed 02/06/2019 4:19 AM CDT HOME CPAP/BIPAP FOR HOSP USE: NOCTURNAL 02 Routine 02/06/2019 12:01 AM CDT CBC W AUTO DIFFERENTIAL AM Draw 02/05/2019 2:38 AM CDT BASIC METABOLIC PANEL (CALCIUM TOTAL) AM Draw 02/05/2019 2:38 AM CDT VANCOMYCIN LEVEL RANDOM Timed 02/05/2019 2:38 AM CDT HOME CPAP/BIPAP FOR HOSP USE: NOCTURNAL 02 Routine 02/05/2019 12:01 AM CDT GLUCOSE - POINT OF CARE Routine 02/04/2019 5:16 PM CDT VANCOMYCIN LEVEL TROUGH Timed 02/04/2019 2:12 PM CDT GLUCOSE - POINT OF CARE Routine 02/04/2019 12:09 PM CDT CULTURE WOUND+GRAM STAIN STAT 02/04/2019 11:29 AM CDT Diagnosis unknown CULTURE ANAEROBE STAT 02/04/2019 11:2 9 AM CDT Diagnosis unknown CULTURE TISSUE+GRAM STAIN STAT 02/04/2019 11:29 AM CDT Diagnosis unknown CULTURE ANAEROBE STAT 02/04/2019 11:2 9 AM CDT Diagnosis unknown GLUCOSE - POINT OF CARE Routine 02/04/2019 8:17 AM CDT PT PTT PANEL STAT 02/04/2019 7:37 AM CDT CBC W/O DIFFERENTIAL Routine 02/04/2019 7:37 AM CDT URINALYSIS REFLEX MICROSCOPIC REFLEX CULTURE Routine 02/04/2019 6:17 AM CDT TYPE + SCREEN PANEL Routine 02/04/2019 2 :34 AM CDT Other specified anemias BASIC METABOLIC PANEL (CALCIUM TOTAL) AM Draw 02/04/2019 2:34 AM CDT HOME CPAP/BIPAP FOR HOSP USE: NOCTURNAL 02 Routine 02/04/2019 12:01 AM CDT GLUCOSE - POINT OF CARE Routine 02/03/2019 8:35 PM CDT GLUCOSE - POINT OF CARE Routine 02/03/2019 5:22 PM CDT EKG 12-LEAD STAT 02/03/2019 4:29 PM CDT 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, initial encounter (HCC) GLUCOSE - POINT OF CARE Routine 02/03/2019 1:00 PM CDT GLUCOSE - POINT OF CARE Routine 02/03/2019 10:10 AM CDT XR FEMUR RIGHT 2VW Routine 02/03/2019 9: 22 AM CDT 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, initial encounter (HCC) LACTIC ACID BLOOD Timed 02/03/2019 4:1 3 AM CDT HEMOGLOBIN A1C Add on 02/03/2019 1:06 AM CDT PT-INR AM Draw 02/03/2019 1:06 AM CDT CBC W AUTO DIFFERENTIAL AM Draw 02/03/2019 1:06 AM CDT COMPREHENSIVE METABOLIC PANEL AM Draw 02/03/2019 1:06 AM CDT LACTIC ACID BLOOD Timed 02/03/2019 1:0 6 AM CDT HOME CPAP/BIPAP FOR HOSP USE: NOCTURNAL 02 Routine 02/03/2019 12:02 AM CDT CULTURE BLOOD Timed 02/02/2019 10:38 PM CDT CULTURE BLOOD Timed 02/02/2019 10:38 PM CDT LACTIC ACID BLOOD STAT 02/02/2019 10: 38 PM CDT HOME CPAP/BIPAP FOR HOSP USE: NOCTURNAL 02 Routine 02/02/2019 10:08 PM CDT documented in this encounter Results * CARDIAC RHYTHM STRIP ORDER (02/27/2019 12:56 AM CDT) Narrative 02/27/2019 12:56 AM CDT Ordered by an unspecified provider. Scanned Document CARDIAC SERVICES ORD ERABLES * VANCOMYCIN LEVEL TROUGH (02/15/2019 4:50 PM CDT) Pathologist [facility] Vancomycin Trough 16.5 10.0 - 20.0 ug/mL 02/15/2019 5:16 PM CDT [facility] Blood BLOOD SPECIMEN / Unknown Venipuncture / Unknown 02/15/2019 4:50 PM CDT 02/15/2019 4:55 PM CDT Poncho Cisneros MD LAB - CHEMISTRY ROYCE KLINE [facility] [address] [place] [address] * (ABNORMAL) PT-INR (02/15/2019 3:07 AM CDT) PT 18.9(H) 9.5 - 11.6 sec 02/15/2019 4:09 AM CDT [facility] INR 1.9(H) 0.9 - 1.1 02/15/2019 4:09 AM [facility] Blood BLOOD SPECIMEN / Unknown Lab Venipuncture / Unknown 02/15/2019 3:07 AM CDT 02/15/2019 3:51 AM CDT [facility] - 02/15/2019 4:09 AM CDT Conventional Warfarin Anticoagulant Therapy: INR Reference Range: ??2.0-3.0 Intensive Warfarin Anticoagulant Therapy: INR Reference Range: ? 2.5-3.5 Blaire Meek MD LAB - COAGULATION OR DERABLES [facility] [address] [place], [place] [id number] * (ABNORMAL) BASIC METABOLIC PANEL (CALCIUM TOTAL) (02/15/2019 3:07 AM CDT) Glucose 98 74 - 106 mg/dL 02/15/2019 4:27 AM [facility] Sodium 141 136 - 145 mmol/L 02/15/2019 4:27 AM [facility] Potassium 3.7 3.5 - 5.1 mmol/L 02/15/2019 4:27 AM [facility] Chloride 106 98 - 107 mmol/L 02/15/2019 4:27 AM [facility] CO2 28 23 - 31 mmol/L 02/15/2019 4:27 AM [facility] Calcium 8.6 8.4 - 10.2 mg/dL 02/15/2019 4:27 AM [facility] Anion Gap 7(L) 8 - 16 mmol/L 02/15/2019 4:27 AM [facility] BUN 17 8.4 - 25.7 mg/dL 02/15/2019 4:27 AM [facility] Creatinine 1.02 0.73 - 1.18 mg/dL 02/15/2019 4:27 AM [facility] eGFR by MDRD >60 mL/min/1.7 3m2 02/15/2019 4:27 AM [facility] eGFR by MDRD >60 mL/min/1.7 3m2 02/15/2019 4:27 AM [facility] Blood BLOOD SPECIMEN / Unknown Lab Venipuncture / Unknown 02/15/2019 3:07 AM CDT 02/15/2019 3:51 AM CDT Blaire Meek MD LAB - CHEMISTRY ROYCE KLINE [facility] Organization Address City/State/ZIP Co de Phone Number [facility] [address] [place] [address] * (ABNORMAL) CBC W AUTO DIFFERENTIAL (02/15/2019 3:07 AM CDT) [facility] WBC 8.5 4.4 - 10.7 x10E9/L 02/15/2019 4:05 AM [facility] WBC Corrected 02/15/2019 4:05 AM CDT [facility] RBC 2.74(L) 3.80 - 5.40 x10E12/L 02/15/2019 4:05 AM [facility] Hemoglobin 7.4(L) 12.0 - 17.6 gm/dL 02/15/2019 4:05 AM [facility] Hematocrit 25.0(L) 35.2 - 51.7 % 02/15/2019 4:05 AM [facility] MCV 91.2 80.7 - 98.3 fl 02/15/2019 4:05 AM CDT [facility] MCH 27.0 26.7 - 34.0 pg 02/15/2019 4:05 AM CDT [facility] MCHC 29.6(L) 30.8 - 35.9 gm/dL 02/15/2019 4:05 AM [facility] Platelet Count 284 153 - 416 x10E9/L 02/15/2019 4:05 AM [facility] RDW-CV 17.0(H) 12.1 - 14.9 % 02/15/2019 4:05 AM [facility] MPV 11.5 9.4 - 12.9 fl 02/15/2019 4:05 AM CDT [facility] Neutrophils % 72.9 44.0 - 73.0 % 02/15/2019 4:05 AM CDT [facility] Lymphocytes % 8.7(L) 20.0 - 43.0 % 02/15/2019 4:05 AM CDT [facility] Monocytes % 8.0 5.0 - 13.0 % 02/15/2019 4:05 AM [facility] Eosinophils % 8.0(H) 0.0 - 6.0 % 02/15/2019 4:05 AM T [facility] Basophils % 0.5 0.0 - 2.0 % 02/15/2019 4:05 AM T [facility] Immature Granulocytes 1.9(H) 0 - 1 % 02/15/2019 4:05 AM T [facility] Neutrophil Absolute 6.18 2.01 - 7.14 x10E9/L 02/15/2019 4:05 AM [facility] Lymphocytes Absolute 0.74(L) 1.07 - 3.94 x10E9/L 02/15/2019 4:05 AM T [facility] Monocytes Absolute 0.68 0.26 - 1.07 x10E9/L 02/15/2019 4:05 AM [facility] Eosinophils Absolute 0.68(H) 0 - 0.47 x10E9/L 02/15/2019 4:05 AM [facility] Basophils Absolute 0.04 0 - 0.08 x10E9/L 02/15/2019 4:05 AM [facility] Immature Granulocytes Absolute 0.16(H) 0.00 - 0.06 x10E9/L 02/15/2019 4:05 AM [facility] nRBC Auto 0 /100 WBC 02/15/2019 4:05 AM [facility] Blood BLOOD SPECIMEN / Unknown Lab Venipuncture / Unknown 02/15/2019 3:07 AM CDT 02/15/2019 3:51 AM CDT Blaire Meek MD LAB - HEMATOLOGY ORD ERABLES [facility] [address] [place] [address] * (ABNORMAL) PT-INR (02/14/2019 3:46 AM CDT) PT 18.3(H) 9.5 - 11.6 sec 02/14/2019 5:27 AM T [facility] INR 1.9(H) 0.9 - 1.1 02/14/2019 5:27 AM [facility] Blood BLOOD SPECIMEN / Unknown Lab Venipuncture / Unknown 02/14/2019 3:46 AM CDT 02/14/2019 4:16 AM CDT Narrative [facility] - 02/14/2019 5:27 AM CDT Conventional Warfarin Anticoagulant Therapy: INR Reference Range: ??2.0-3.0 Intensive Warfarin Anticoagulant Therapy: INR Reference Range: ? 2.5-3.5 Blaire Meek MD LAB - COAGULATION OR DERABLES [facility] [address] [place] [address] * (ABNORMAL) BASIC METABOLIC PANEL (CALCIUM TOTAL) (02/14/2019 3:46 AM CDT) Glucose 113(H) 74 - 106 mg/dL 02/14/2019 4:56 AM [facility] Sodium 141 136 - 145 mmol/L 02/14/2019 4:56 AM [facility] Potassium 3.7 3.5 - 5.1 mmol/L 02/14/2019 4:56 AM [facility] Chloride 108(H) 98 - 107 mmol/L 02/14/2019 4:56 AM [facility] CO2 28 23 - 31 mmol/L 02/14/2019 4:56 AM [facility] Calcium 8.4 8.4 - 10.2 mg/dL 02/14/2019 4:56 AM [facility] Anion Gap 5(L) 8 - 16 mmol/L 02/14/2019 4:56 AM [facility] BUN 18 8.4 - 25.7 mg/dL 02/14/2019 4:56 AM [facility] Creatinine 1.10 0.73 - 1.18 mg/dL 02/14/2019 4:56 AM [facility] eGFR by MDRD >60 mL/min/1.7 3m2 02/14/2019 4:56 AM [facility] eGFR by MDRD >60 mL/min/1.7 3m2 02/14/2019 4:56 AM [facility] Blood BLOOD SPECIMEN / Unknown 02/14/2019 3:46 AM CDT 02/14/2019 4:15 AM CDT Blaire Meek MD LAB - CHEMISTRY ROYCE Lutz Organization Address City/State/ZIP Co de Phone Number [facility] [address] [place] [address] * (ABNORMAL) CBC W AUTO DIFFERENTIAL (02/14/2019 2:58 AM CDT) WBC 9.6 4.4 - 10.7 x10E9/L 02/14/2019 4:47 AM CDT [facility] WBC Corrected 02/14/2019 4:47 AM CDT [facility] RBC 2.80(L) 3.80 - 5.40 x10E12/L 02/14/2019 4:47 AM CDT [facility] Hemoglobin 7.7(L) 12.0 - 17.6 gm/dL 02/14/2019 4:47 AM CDT [facility] Hematocrit 26.0(L) 35.2 - 51.7 % 02/14/2019 4:47 AM CDT [facility] MCV 92.9 80.7 - 98.3 fl 02/14/2019 4:47 AM CDT [facility] MCH 27.5 26.7 - 34.0 pg 02/14/2019 4:47 AM CDT [facility] MCHC 29.6(L) 30.8 - 35.9 gm/dL 02/14/2019 4:47 AM CDT [facility] Platelet Count 288 153 - 416 x10E9/L 02/14/2019 4:47 AM CDT [facility] RDW-CV 17.0(H) 12.1 - 14.9 % 02/14/2019 4:47 AM CDT [facility] MPV 11.9 9.4 - 12.9 fl 02/14/2019 4:47 AM CDT [facility] Neutrophils % 71.9 44.0 - 73.0 % 02/14/2019 4:47 AM CDT [facility] Lymphocytes % 8.6(L) 20.0 - 43.0 % 02/14/2019 4:47 AM CDT [facility] Monocytes % 9.6 5.0 - 13.0 % 02/14/2019 4:47 AM CDT [facility] Eosinophils % 7.0(H) 0.0 - 6.0 % 02/14/2019 4:47 AM CDT [facility] Basophils % 0.5 0.0 - 2.0 % 02/14/2019 4:47 AM CDT [facility] Immature Granulocytes 2.4(H) 0 - 1 % 02/14/2019 4:47 AM CDT [facility] Neutrophil Absolute 6.90 2.01 - 7.14 x10E9/L 02/14/2019 4:47 AM CDT [facility] Lymphocytes Absolute 0.83(L) 1.07 - 3.94 x10E9/L 02/14/2019 4:47 AM CDT [facility] Monocytes Absolute 0.92 0.26 - 1.07 x10E9/L 02/14/2019 4:47 AM CDT [facility] Eosinophils Absolute 0.67(H) 0 - 0.47 x10E9/L 02/14/2019 4:47 AM CDT [facility] Basophils Absolute 0.05 0 - 0.08 x10E9/L 02/14/2019 4:47 AM CDT [facility] Immature Granulocytes Absolute 0.23(H) 0.00 - 0.06 x10E9/L 02/14/2019 4:47 AM CDT [facility] nRBC Auto 0 /100 WBC 02/14/2019 4:47 AM CDT [facility] Blood BLOOD SPECIMEN / Unknown Lab Venipuncture / Unknown 02/14/2019 2:58 AM CDT 02/14/2019 4:10 AM CDT Blaire Meek MD LAB - HEMATOLOGY ORD ERABLES [facility] [address] [place] [address] * XR CHEST FOR PICC PLMT (Place [...] PM Poncho Cisneros MD DIAGNOSTIC IMAGING O RDERABLES * (ABNORMAL) PT-INR (02/13/2019 4:40 AM CDT) PT 13.6(H) 9.5 - 11.6 sec 02/13/2019 5:20 AM CDT [facility] INR 1.3(H) 0.9 - 1.1 02/13/2019 5:20 AM CDT [facility] Blood BLOOD SPECIMEN / Unknown Lab Venipuncture / Unknown 02/13/2019 4:40 AM CDT 02/13/2019 4:56 AM CDT Narrative [facility] - 02/13/2019 5:20 AM CDT Conventional Warfarin Anticoagulant Therapy: INR Reference Range: ??2.0-3.0 Intensive Warfarin Anticoagulant Therapy: INR Reference Range: ? 2.5-3.5 Blaire Meek MD LAB - COAGULATION OR DERABLES [facility] [address] [place] [address] * BASIC METABOLIC PANEL (CALCIUM TOTAL) (02/13/2019 4:40 AM CDT) Glucose 106 74 - 106 mg/dL 02/13/2019 5:49 AM CDT [facility] Sodium 142 136 - 145 mmol/L 02/13/2019 5:49 AM CDT [facility] Potassium 3.6 3.5 - 5.1 mmol/L 02/13/2019 5:49 AM CDT [facility] Chloride 106 98 - 107 mmol/L 02/13/2019 5:49 AM CDT [facility] CO2 28 23 - 31 mmol/L 02/13/2019 5:49 AM CDT [facility] Calcium 8.6 8.4 - 10.2 mg/dL 02/13/2019 5:49 AM CDT [facility] Anion Gap 8 8 - 16 mmol/L 02/13/2019 5:49 AM CDT [facility] BUN 17 8.4 - 25.7 mg/dL 02/13/2019 5:49 AM CDT [facility] Creatinine 0.97 0.73 - 1.18 mg/dL 02/13/2019 5:49 AM CDT [facility] eGFR by MDRD >60 mL/min/1.7 3m2 02/13/2019 5:49 AM CDT [facility] eGFR by MDRD >60 mL/min/1.7 3m2 02/13/2019 5:49 AM CDT [facility] Blood BLOOD SPECIMEN / Unknown Lab Venipuncture / Unknown 02/13/2019 4:40 AM CDT 02/13/2019 4:56 AM CDT Blaire Meek MD LAB - CHEMISTRY ROYCE KLINE [facility] Organization Address City/State/ZIP Co de Phone Number [facility] [address] [place] [address] * (ABNORMAL) CBC W AUTO DIFFERENTIAL (02/13/2019 4:40 AM CDT) [facility] Signature WBC 8.9 4.4 - 10.7 x10E9/L 02/13/2019 5:22 AM CDT [facility] WBC Corrected 02/13/2019 5:22 AM CDT [facility] RBC 2.73(L) 3.80 - 5.40 x10E12/L 02/13/2019 5:22 AM CDT [facility] Hemoglobin 7.6(L) 12.0 - 17.6 gm/dL 02/13/2019 5:22 AM CDT [facility] Hematocrit 25.1(L) 35.2 - 51.7 % 02/13/2019 5:22 AM CDT [facility] MCV 91.9 80.7 - 98.3 fl 02/13/2019 5:22 AM CDT [facility] MCH 27.8 26.7 - 34.0 pg 02/13/2019 5:22 AM CDT [facility] MCHC 30.3(L) 30.8 - 35.9 gm/dL 02/13/2019 5:22 AM [facility] Platelet Count 287 153 - 416 x10E9/L 02/13/2019 5:22 AM [facility] RDW-CV 16.7(H) 12.1 - 14.9 % 02/13/2019 5:22 AM [facility] MPV 11.7 9.4 - 12.9 fl 02/13/2019 5:22 AM [facility] Neutrophils % 70.3 44.0 - 73.0 % 02/13/2019 5:22 AM [facility] Lymphocytes % 8.8(L) 20.0 - 43.0 % 02/13/2019 5:22 AM [facility] Monocytes % 8.8 5.0 - 13.0 % 02/13/2019 5:22 AM [facility] Eosinophils % 8.1(H) 0.0 - 6.0 % 02/13/2019 5:22 AM [facility] Basophils % 0.6 0.0 - 2.0 % 02/13/2019 5:22 AM [facility] Immature Granulocytes 3.4(H) 0 - 1 % 02/13/2019 5:22 AM [facility] Neutrophil Absolute 6.25 2.01 - 7.14 x10E9/L 02/13/2019 5:22 AM [facility] Lymphocytes Absolute 0.78(L) 1.07 - 3.94 x10E9/L 02/13/2019 5:22 AM [facility] Monocytes Absolute 0.78 0.26 - 1.07 x10E9/L 02/13/2019 5:22 AM [facility] Eosinophils Absolute 0.72(H) 0 - 0.47 x10E9/L 02/13/2019 5:22 AM [facility] Basophils Absolute 0.05 0 - 0.08 x10E9/L 02/13/2019 5:22 AM CDT [facility] Immature Granulocytes Absolute 0.30(H) 0.00 - 0.06 x10E9/L 02/13/2019 5:22 AM CDT [facility] nRBC Auto 0 /100 WBC 02/13/2019 5:22 AM CDT [facility] Blood BLOOD SPECIMEN / Unknown Lab Venipuncture / Unknown 02/13/2019 4:40 AM CDT 02/13/2019 4:56 AM CDT Blaire Meek MD LAB - HEMATOLOGY ORD ERABLES Performing Organization Address City/[facility]/ZIP Co de Phone Number [facility] [address] [place] [phone] * (ABNORMAL) VANCOMYCIN LEVEL TROUGH (02/12/2019 9:22 AM CDT) Vancomycin Trough 22.6(H) 10.0 - 20.0 ug/mL 02/12/2019 10:04 AM CDT [facility] Blood BLOOD SPECIMEN / Unknown Lab Venipuncture / Unknown 02/12/2019 9:22 AM CDT 02/12/2019 9:32 AM CDT Blaire Meek MD LAB - CHEMISTRY ROYCE KLINE Performing Organization Address [place]/[facility] Co de Phone Number [facility] [address] [place] [phone] * PT-INR (02/12/2019 3:15 AM CDT) PT 11.0 9.5 - 11.6 sec 02/12/2019 4:07 AM CDT [facility] INR 1.0 0.9 - 1.1 02/12/2019 4:07 AM CDT [facility] Blood BLOOD SPECIMEN / Unknown Lab Venipuncture / Unknown 02/12/2019 3:15 AM CDT 02/12/2019 3:43 AM CDT Narrative [facility] - 02/12/2019 4:07 AM CDT Conventional Warfarin Anticoagulant Therapy: INR Reference Range: ??2.0-3.0 Intensive Warfarin Anticoagulant Therapy: INR Reference Range: ? 2.5-3.5 Blaire Meek MD LAB - COAGULATION OR DERABLES [facility] [address] [place], [place] [phone] * (ABNORMAL) BASIC METABOLIC PANEL (CALCIUM TOTAL) (02/12/2019 3:15 AM CDT) Glucose 114(H) 74 - 106 mg/dL 02/12/2019 4:19 AM CDT [facility] Sodium 139 136 - 145 mmol/L 02/12/2019 4:19 AM CDT [facility] Potassium 3.5 3.5 - 5.1 mmol/L 02/12/2019 4:19 AM CDT [facility] Chloride 105 98 - 107 mmol/L 02/12/2019 4:19 AM CDT [facility] CO2 27 23 - 31 mmol/L 02/12/2019 4:19 AM CDT [facility] Calcium 8.7 8.4 - 10.2 mg/dL 02/12/2019 4:19 AM CDT [facility] Anion Gap 7(L) 8 - 16 mmol/L 02/12/2019 4:19 AM CDT [facility] BUN 19 8.4 - 25.7 mg/dL 02/12/2019 4:19 AM CDT [facility] Creatinine 0.99 0.73 - 1.18 mg/dL 02/12/2019 4:19 AM CDT [facility] eGFR by MDRD >60 mL/min/1.7 3m2 02/12/2019 4:19 AM CDT [facility] eGFR by MDRD >60 mL/min/1.7 3m2 02/12/2019 4:19 AM CDT [facility] Blood BLOOD SPECIMEN / Unknown Lab Venipuncture / Unknown 02/12/2019 3:15 AM CDT 02/12/2019 3:43 AM CDT Blaire Meek MD LAB - CHEMISTRY ROYCE KLINE [facility] [address] [place], [place] [phone] * (ABNORMAL) CBC W AUTO DIFFERENTIAL (02/12/2019 3:15 AM CDT) Pathologist [facility] WBC 9.3 4.4 - 10.7 x10E9/L 02/12/2019 3:56 AM CDT [facility] WBC Corrected 02/12/2019 3:56 AM CDT [facility] RBC 2.84(L) 3.80 - 5.40 x10E12/L 02/12/2019 3:56 AM CDT [facility] Hemoglobin 7.5(L) 12.0 - 17.6 gm/dL 02/12/2019 3:56 AM CDT [facility] Hematocrit 26.0(L) 35.2 - 51.7 % 02/12/2019 3:56 AM CDT [facility] MCV 91.5 80.7 - 98.3 fl 02/12/2019 3:56 AM CDT [facility] MCH 26.4(L) 26.7 - 34.0 pg 02/12/2019 3:56 AM CDT [facility] MCHC 28.8(L) 30.8 - 35.9 gm/dL 02/12/2019 3:56 AM CDT [facility] Platelet Count 270 153 - 416 x10E9/L 02/12/2019 3:56 AM CDT [facility] RDW-CV 16.3(H) 12.1 - 14.9 % 02/12/2019 3:56 AM CDT [facility] MPV 11.7 9.4 - 12.9 fl 02/12/2019 3:56 AM CDT [facility] Neutrophils % 74.3(H) 44.0 - 73.0 % 02/12/2019 3:56 AM CDT [facility] Lymphocytes % 8.4(L) 20.0 - 43.0 % 02/12/2019 3:56 AM CDT [facility] Monocytes % 8.4 5.0 - 13.0 % 02/12/2019 3:56 AM CDT [facility] Eosinophils % 6.0 0.0 - 6.0 % 02/12/2019 3:56 AM CDT [facility] Basophils % 0.4 0.0 - 2.0 % 02/12/2019 3:56 AM CDT [facility] Immature Granulocytes 2.5(H) 0 - 1 % 02/12/2019 3:56 AM CDT [facility] Neutrophil Absolute 6.88 2.01 - 7.14 x10E9/L 02/12/2019 3:56 AM CDT [facility] Lymphocytes Absolute 0.78(L) 1.07 - 3.94 x10E9/L 02/12/2019 3:56 AM CDT [facility] Monocytes Absolute 0.78 0.26 - 1.07 x10E9/L 02/12/2019 3:56 AM CDT [facility] Eosinophils Absolute 0.56(H) 0 - 0.47 x10E9/L 02/12/2019 3:56 AM CDT [facility] Basophils Absolute 0.04 0 - 0.08 x10E9/L 02/12/2019 3:56 AM CDT [facility] Immature Granulocytes Absolute 0.23(H) 0.00 - 0.06 x10E9/L 02/12/2019 3:56 AM CDT [facility] nRBC Auto 0 /100 WBC 02/12/2019 3:56 AM CDT [facility] Blood BLOOD SPECIMEN / Unknown Lab Venipuncture / Unknown 02/12/2019 3:15 AM CDT 02/12/2019 3:44 AM CDT Blaire Meek MD LAB - HEMATOLOGY ORD ERABLES Performing Organization Address City/[facility] Co de Phone Number [facility] [address] [place] [phone] * PT-INR (02/11/2019 2:34 PM CDT) PT 11.0 9.5 - 11.6 sec 02/11/2019 3:04 PM CDT [facility] INR 1.0 0.9 - 1.1 02/11/2019 3:04 PM CDT [facility] Blood BLOOD SPECIMEN / Unknown Lab Venipuncture / Unknown 02/11/2019 2:34 PM CDT 02/11/2019 2:52 PM CDT Narrative [facility] - 02/11/2019 3:04 PM CDT Conventional Warfarin Anticoagulant Therapy: INR Reference Range: ??2.0-3.0 Intensive Warfarin Anticoagulant Therapy: INR Reference Range: ? 2.5-3.5 Blaire Meek MD LAB - COAGULATION OR DERABLES [facility] [address] [place] [address] * (ABNORMAL) BASIC METABOLIC PANEL (CALCIUM TOTAL) (02/11/2019 2:42 AM CDT) Glucose 113(H) 74 - 106 mg/dL 02/11/2019 4:37 AM CDT [facility] Sodium 137 136 - 145 mmol/L 02/11/2019 4:37 AM CDT [facility] Potassium 3.5 3.5 - 5.1 mmol/L 02/11/2019 4:37 AM CDT [facility] Chloride 101 98 - 107 mmol/L 02/11/2019 4:37 AM CDT [facility] CO2 27 23 - 31 mmol/L 02/11/2019 4:37 AM CDT [facility] Calcium 9.0 8.4 - 10.2 mg/dL 02/11/2019 4:37 AM CDT [facility] Anion Gap 9 8 - 16 mmol/L 02/11/2019 4:37 AM CDT [facility] BUN 21 8.4 - 25.7 mg/dL 02/11/2019 4:37 AM CDT [facility] Creatinine 1.00 0.73 - 1.18 mg/dL 02/11/2019 4:37 AM CDT [facility] eGFR by MDRD >60 mL/min/1.7 3m2 02/11/2019 4:37 AM CDT [facility] eGFR by MDRD >60 mL/min/1.7 3m2 02/11/2019 4:37 AM CDT [facility] Blood BLOOD SPECIMEN / Unknown Lab Venipuncture / Unknown 02/11/2019 2:42 AM CDT 02/11/2019 3:51 AM CDT Blaire Meek MD LAB - CHEMISTRY ROYCE KLINE [facility] [address] [place], [place] [phone] * (ABNORMAL) CBC W AUTO DIFFERENTIAL (02/11/2019 2:42 AM CDT) WBC 10.3 4.4 - 10.7 x10E9/L 02/11/2019 4:01 AM [facility] WBC Corrected 02/11/2019 4:01 AM [facility] RBC 2.87(L) 3.80 - 5.40 x10E12/L 02/11/2019 4:01 AM [facility] Hemoglobin 8.0(L) 12.0 - 17.6 gm/dL 02/11/2019 4:01 AM [facility] Hematocrit 26.4(L) 35.2 - 51.7 % 02/11/2019 4:01 AM [facility] MCV 92.0 80.7 - 98.3 fl 02/11/2019 4:01 AM [facility] MCH 27.9 26.7 - 34.0 pg 02/11/2019 4:01 AM [facility] MCHC 30.3(L) 30.8 - 35.9 gm/dL 02/11/2019 4:01 AM [facility] Platelet Count 277 153 - 416 x10E9/L 02/11/2019 4:01 AM [facility] RDW-CV 16.2(H) 12.1 - 14.9 % 02/11/2019 4:01 AM [facility] MPV 11.7 9.4 - 12.9 fl 02/11/2019 4:01 AM [facility] Neutrophils % 74.0(H) 44.0 - 73.0 % 02/11/2019 4:01 AM [facility] Lymphocytes % 7.8(L) 20.0 - 43.0 % 02/11/2019 4:01 AM [facility] Monocytes % 10.2 5.0 - 13.0 % 02/11/2019 4:01 AM [facility] Eosinophils % 5.3 0.0 - 6.0 % 02/11/2019 4:01 AM [facility] Basophils % 0.4 0.0 - 2.0 % 02/11/2019 4:01 AM [facility] Immature Granulocytes 2.3(H) 0 - 1 % 02/11/2019 4:01 AM [facility] Neutrophil Absolute 7.63(H) 2.01 - 7.14 x10E9/L 02/11/2019 4:01 AM [facility] Lymphocytes Absolute 0.81(L) 1.07 - 3.94 x10E9/L 02/11/2019 4:01 AM CDT [facility] Monocytes Absolute 1.05 0.26 - 1.07 x10E9/L 02/11/2019 4:01 AM CDT [facility] Eosinophils Absolute 0.55(H) 0 - 0.47 x10E9/L 02/11/2019 4:01 AM CDT [facility] Basophils Absolute 0.04 0 - 0.08 x10E9/L 02/11/2019 4:01 AM CDT [facility] Immature Granulocytes Absolute 0.24(H) 0.00 - 0.06 x10E9/L 02/11/2019 4:01 AM CDT [facility] nRBC Auto 0 /100 WBC 02/11/2019 4:01 AM [facility] Blood BLOOD SPECIMEN / Unknown Lab Venipuncture / Unknown 02/11/2019 2:42 AM CDT 02/11/2019 3:51 AM CDT Blaire Meek MD LAB - HEMATOLOGY ORD ERABLES [facility] [address] [place] [address] * (ABNORMAL) BASIC METABOLIC PANEL (CALCIUM TOTAL) (02/10/2019 3:18 AM CDT) Glucose 108(H) 74 - 106 mg/dL 02/10/2019 5:04 AM [facility] Sodium 139 136 - 145 mmol/L 02/10/2019 5:04 AM CDT [facility] Potassium 3.8 3.5 - 5.1 mmol/L 02/10/2019 5:04 AM [facility] Chloride 105 98 - 107 mmol/L 02/10/2019 5:04 AM CDT [facility] CO2 26 23 - 31 mmol/L 02/10/2019 5:04 AM [facility] Calcium 9.0 8.4 - 10.2 mg/dL 02/10/2019 5:04 AM [facility] Anion Gap 8 8 - 16 mmol/L 02/10/2019 5:04 AM CDT [facility] BUN 20 8.4 - 25.7 mg/dL 02/10/2019 5:04 AM CDT [facility] Creatinine 1.16 0.73 - 1.18 mg/dL 02/10/2019 5:04 AM CDT [facility] eGFR by MDRD >60 mL/min/1.7 3m2 02/10/2019 5:04 AM CDT [facility] eGFR by MDRD >60 mL/min/1.7 3m2 02/10/2019 5:04 AM CDT [facility] Blood BLOOD SPECIMEN / Unknown Lab Venipuncture / Unknown 02/10/2019 3:18 AM CDT 02/10/2019 4:24 AM CDT Blaire Meek MD LAB - CHEMISTRY [facility] Organization Address City/State/ZIP Co de Phone Number [facility] [address], [place] [id number] * (ABNORMAL) CBC W AUTO DIFFERENTIAL (02/10/2019 3:18 AM CDT) WBC 10.1 4.4 - 10.7 x10E9/L 02/10/2019 4:37 AM CDT [facility] WBC Corrected 02/10/2019 4:37 AM CDT [facility] RBC 2.85(L) 3.80 - 5.40 x10E12/L 02/10/2019 4:37 AM CDT [facility] Hemoglobin 7.9(L) 12.0 - 17.6 gm/dL 02/10/2019 4:37 AM CDT [facility] Hematocrit 26.1(L) 35.2 - 51.7 % 02/10/2019 4:37 AM CDT [facility] MCV 91.6 80.7 - 98.3 fl 02/10/2019 4:37 AM CDT [facility] MCH 27.7 26.7 - 34.0 pg 02/10/2019 4:37 AM CDT [facility] MCHC 30.3(L) 30.8 - 35.9 gm/dL 02/10/2019 4:37 AM CDT [facility] Platelet Count 260 153 - 416 x10E9/L 02/10/2019 4:37 AM CDT [facility] RDW-CV 16.2(H) 12.1 - 14.9 % 02/10/2019 4:37 AM CDT [facility] MPV 11.9 9.4 - 12.9 fl 02/10/2019 4:37 AM CDT [facility] Neutrophils % 76.6(H) 44.0 - 73.0 % 02/10/2019 4:37 AM [facility] Lymphocytes % 7.6(L) 20.0 - 43.0 % 02/10/2019 4:37 AM [facility] Monocytes % 10.5 5.0 - 13.0 % 02/10/2019 4:37 AM T [facility] Eosinophils % 3.3 0.0 - 6.0 % 02/10/2019 4:37 AM T [facility] Basophils % 0.5 0.0 - 2.0 % 02/10/2019 4:37 AM [facility] Immature Granulocytes 1.5(H) 0 - 1 % 02/10/2019 4:37 AM [facility] Neutrophil Absolute 7.77(H) 2.01 - 7.14 x10E9/L 02/10/2019 4:37 AM [facility] Lymphocytes Absolute 0.77(L) 1.07 - 3.94 x10E9/L 02/10/2019 4:37 AM T [facility] Monocytes Absolute 1.06 0.26 - 1.07 x10E9/L 02/10/2019 4:37 AM [facility] Eosinophils Absolute 0.33 0 - 0.47 x10E9/L 02/10/2019 4:37 AM [facility] Basophils Absolute 0.05 0 - 0.08 x10E9/L 02/10/2019 4:37 AM [facility] Immature Granulocytes Absolute 0.15(H) 0.00 - 0.06 x10E9/L 02/10/2019 4:37 AM [facility] nRBC Auto 0 /100 WBC 02/10/2019 4:37 AM [facility] Blood BLOOD SPECIMEN / Unknown Lab Venipuncture / Unknown 02/10/2019 3:18 AM CDT 02/10/2019 4:24 AM CDT Blaire Meek MD LAB - HEMATOLOGY ORD ERABLES [facility] [address] [place] [address] * (ABNORMAL) BASIC METABOLIC PANEL (CALCIUM TOTAL) (02/09/2019 2:30 AM CDT) Glucose 119(H) 74 - 106 mg/dL 02/09/2019 3:04 AM CDT [facility] Sodium 137 136 - 145 mmol/L 02/09/2019 3:04 AM CDT [facility] Potassium 4.3 3.5 - 5.1 mmol/L 02/09/2019 3:04 AM T [facility] Chloride 102 98 - 107 mmol/L 02/09/2019 3:04 AM CDT [facility] CO2 25 23 - 31 mmol/L 02/09/2019 3:04 AM T [facility] Calcium 8.9 8.4 - 10.2 mg/dL 02/09/2019 3:04 AM T [facility] Anion Gap 10 8 - 16 mmol/L 02/09/2019 3:04 AM T [facility] BUN 20 8.4 - 25.7 mg/dL 02/09/2019 3:04 AM T [facility] Creatinine 1.23(H) 0.73 - 1.18 mg/dL 02/09/2019 3:04 AM T [facility] eGFR by MDRD 58 mL/min/1.7 3m2 02/09/2019 3:04 AM T [facility] eGFR by MDRD >60 mL/min/1.7 3m2 02/09/2019 3:04 AM T [facility] Blood BLOOD SPECIMEN / Unknown Lab Venipuncture / Unknown 02/09/2019 2:30 AM CDT 02/09/2019 2:46 AM CDT Blaire Meek MD LAB - CHEMISTRY ROYCE KLINE [facility] Organization Address City/State/ZIP Co de Phone Number [facility] [address] [place] [address] * (ABNORMAL) CBC W AUTO DIFFERENTIAL (02/09/2019 2:30 AM CDT) WBC 11.7(H) 4.4 - 10.7 x10E9/L 02/09/2019 2:50 AM CDT [facility] WBC Corrected 02/09/2019 2:50 AM CDT [facility] RBC 2.97(L) 3.80 - 5.40 x10E12/L 02/09/2019 2:50 AM CDT [facility] Hemoglobin 8.3(L) 12.0 - 17.6 gm/dL 02/09/2019 2:50 AM CDT [facility] Hematocrit 27.5(L) 35.2 - 51.7 % 02/09/2019 2:50 AM CDT [facility] MCV 92.6 80.7 - 98.3 fl 02/09/2019 2:50 AM CDT [facility] MCH 27.9 26.7 - 34.0 pg 02/09/2019 2:50 AM CDT [facility] MCHC 30.2(L) 30.8 - 35.9 gm/dL 02/09/2019 2:50 AM CDT [facility] Platelet Count 282 153 - 416 x10E9/L 02/09/2019 2:50 AM CDT [facility] RDW-CV 15.7(H) 12.1 - 14.9 % 02/09/2019 2:50 AM CDT [facility] MPV 11.2 9.4 - 12.9 fl 02/09/2019 2:50 AM CDT [facility] Neutrophils % 85.8(H) 44.0 - 73.0 % 02/09/2019 2:50 AM CDT [facility] Lymphocytes % 4.8(L) 20.0 - 43.0 % 02/09/2019 2:50 AM CDT [facility] Monocytes % 8.2 5.0 - 13.0 % 02/09/2019 2:50 AM CDT [facility] Eosinophils % 0.1 0.0 - 6.0 % 02/09/2019 2:50 AM CDT [facility] Basophils % 0.2 0.0 - 2.0 % 02/09/2019 2:50 AM CDT [facility] Immature Granulocytes 0.9 0 - 1 % 02/09/2019 2:50 AM CDT [facility] Neutrophil Absolute 10.01(H) 2.01 - 7.14 x10E9/L 02/09/2019 2:50 AM CDT [facility] Lymphocytes Absolute 0.56(L) 1.07 - 3.94 x10E9/L 02/09/2019 2:50 AM CDT [facility] Monocytes Absolute 0.95 0.26 - 1.07 x10E9/L 02/09/2019 2:50 AM CDT [facility] Eosinophils Absolute 0.01 0 - 0.47 x10E9/L 02/09/2019 2:50 AM CDT [facility] Basophils Absolute 0.02 0 - 0.08 x10E9/L 02/09/2019 2:50 AM CDT [facility] Immature Granulocytes Absolute 0.10(H) 0.00 - 0.06 x10E9/L 02/09/2019 2:50 AM CDT [facility] nRBC Auto 0 /100 WBC 02/09/2019 2:50 AM CDT [facility] Blood BLOOD SPECIMEN / Unknown Lab Venipuncture / Unknown 02/09/2019 2:30 AM CDT 02/09/2019 2:45 AM CDT Blaire Meek MD LAB - HEMATOLOGY ORD ERABLES Performing Organization Address City/[facility] Co de Phone Number [facility] [address] [place] [address] * TYPE + SCREEN PANEL (02/08/2019 8:57 AM CDT) ABO A 02/08/2019 10:09 AM CDT [facility] Rh Type Positive 02/08/2019 10:09 AM CDT [facility] Comment:History checked. Antibody Screen Negative 02/08/2019 10:09 AM CDT [facility] Blood Bank BLOOD SPECIMEN / Unknown Lab Venipuncture / Unknown 02/08/2019 8:57 AM CDT 02/08/2019 9:40 AM CDT Alberto Shell MD LAB - BLOOD BA NK ORDERABLES Performing Organization Address City/[facility] Co de Phone Number [facility] [address] [phone] * (ABNORMAL) BASIC METABOLIC PANEL (CALCIUM TOTAL) (02/08/2019 2:56 AM CDT) Pathologist [facility] Glucose 90 74 - 106 mg/dL 02/08/2019 4:44 AM CDT [facility] Sodium 137 136 - 145 mmol/L 02/08/2019 4:44 AM CDT [facility] Potassium 3.8 3.5 - 5.1 mmol/L 02/08/2019 4:44 AM CDT [facility] Chloride 103 98 - 107 mmol/L 02/08/2019 4:44 AM CDT [facility] CO2 27 23 - 31 mmol/L 02/08/2019 4:44 AM CDT [facility] Calcium 9.3 8.4 - 10.2 mg/dL 02/08/2019 4:44 AM CDT [facility] Anion Gap 7(L) 8 - 16 mmol/L 02/08/2019 4:44 AM CDT [facility] BUN 20 8.4 - 25.7 mg/dL 02/08/2019 4:44 AM CDT [facility] Creatinine 1.17 0.73 - 1.18 mg/dL 02/08/2019 4:44 AM CDT [facility] eGFR by MDRD >60 mL/min/1.7 3m2 02/08/2019 4:44 AM CDT [facility] eGFR by MDRD >60 mL/min/1.7 3m2 02/08/2019 4:44 AM CDT [facility] Blood BLOOD SPECIMEN / Unknown Lab Venipuncture / Unknown 02/08/2019 2:56 AM CDT 02/08/2019 3:55 AM CDT Blaire Meek MD LAB - CHEMISTRY ROYCE KLINE [facility] Organization Address City/State/ZIP Co de Phone Number [facility] [address] [place], [place] [phone] * (ABNORMAL) CBC W AUTO DIFFERENTIAL (02/08/2019 2:56 AM CDT) Pathologist [facility] WBC 8.9 4.4 - 10.7 x10E9/L 02/08/2019 4:17 AM CDT [facility] WBC Corrected 02/08/2019 4:17 AM CDT [facility] RBC 3.35(L) 3.80 - 5.40 x10E12/L 02/08/2019 4:17 AM CDT [facility] Hemoglobin 8.9(L) 12.0 - 17.6 gm/dL 02/08/2019 4:17 AM CDT [facility] Hematocrit 30.8(L) 35.2 - 51.7 % 02/08/2019 4:17 AM CDT [facility] MCV 91.9 80.7 - 98.3 fl 02/08/2019 4:17 AM CDT [facility] MCH 26.6(L) 26.7 - 34.0 pg 02/08/2019 4:17 AM CDT [facility] MCHC 28.9(L) 30.8 - 35.9 gm/dL 02/08/2019 4:17 AM CDT [facility] Platelet Count 241 153 - 416 x10E9/L 02/08/2019 4:17 AM [facility] RDW-CV 15.6(H) 12.1 - 14.9 % 02/08/2019 4:17 AM [facility] MPV 12.1 9.4 - 12.9 fl 02/08/2019 4:17 AM [facility] Neutrophils % 73.2(H) 44.0 - 73.0 % 02/08/2019 4:17 AM [facility] Lymphocytes % 7.9(L) 20.0 - 43.0 % 02/08/2019 4:17 AM T [facility] Monocytes % 10.6 5.0 - 13.0 % 02/08/2019 4:17 AM T [facility] Eosinophils % 6.7(H) 0.0 - 6.0 % 02/08/2019 4:17 AM [facility] Basophils % 0.7 0.0 - 2.0 % 02/08/2019 4:17 AM T [facility] Immature Granulocytes 0.9 0 - 1 % 02/08/2019 4:17 AM CDT [facility] Neutrophil Absolute 6.49 2.01 - 7.14 x10E9/L 02/08/2019 4:17 AM CDT [facility] Lymphocytes Absolute 0.70(L) 1.07 - 3.94 x10E9/L 02/08/2019 4:17 AM T [facility] Monocytes Absolute 0.94 0.26 - 1.07 x10E9/L 02/08/2019 4:17 AM CDT [facility] Eosinophils Absolute 0.59(H) 0 - 0.47 x10E9/L 02/08/2019 4:17 AM CDT [facility] Basophils Absolute 0.06 0 - 0.08 x10E9/L 02/08/2019 4:17 AM CDT [facility] Immature Granulocytes Absolute 0.08(H) 0.00 - 0.06 x10E9/L 02/08/2019 4:17 AM CDT [facility] nRBC Auto 0 /100 WBC 02/08/2019 4:17 AM CDT [facility] Blood BLOOD SPECIMEN / Unknown Lab Venipuncture / Unknown 02/08/2019 2:56 AM CDT 02/08/2019 3:55 AM CDT Blaire Meek MD LAB - HEMATOLOGY ORD ERABLES Performing Organization Address City/[facility]/ZIP Co de Phone Number [facility] [address] [place] [phone] * SLIDE SCAN HEMATOLOGY (02/07/2019 4:09 AM CDT) Pathologist [facility] Platelet Estimation Adequate platelets Normal, Adequate platelets 02/07/2019 6:45 AM CDT [facility] Comment:Platelet clumping no jordan upon slide review Blood BLOOD SPECIMEN / Unknown Lab Venipuncture / Unknown 02/07/2019 4:09 AM CDT 02/07/2019 5:15 AM CDT Michelle Pratt MD LAB - HEMATOLOGY OR DERABLES [facility] [address] [place] [phone] * (ABNORMAL) CBC W AUTO DIFFERENTIAL (02/07/2019 4:09 AM CDT) Pathologist [facility] WBC 10.0 4.4 - 10.7 x10E9/L 02/07/2019 5:59 AM CDT [facility] WBC Corrected 02/07/2019 5:59 AM CDT [facility] RBC 2.96(L) 3.80 - 5.40 x10E12/L 02/07/2019 5:59 AM CDT [facility] Hemoglobin 8.0(L) 12.0 - 17.6 gm/dL 02/07/2019 5:59 AM CDT [facility] Hematocrit 27.5(L) 35.2 - 51.7 % 02/07/2019 5:59 AM CDT [facility] MCV 92.9 80.7 - 98.3 fl 02/07/2019 5:59 AM CDT [facility] MCH 27.0 26.7 - 34.0 pg 02/07/2019 5:59 AM CDT [facility] MCHC 29.1(L) 30.8 - 35.9 gm/dL 02/07/2019 5:59 AM CDT [facility] Platelet Count 176 153 - 416 x10E9/L 02/07/2019 5:59 AM [facility] RDW-CV 15.7(H) 12.1 - 14.9 % 02/07/2019 5:59 AM CDT [facility] MPV 13.1(H) 9.4 - 12.9 fl 02/07/2019 5:59 AM [facility] Neutrophils % 79.4(H) 44.0 - 73.0 % 02/07/2019 5:59 AM T [facility] Lymphocytes % 5.0(L) 20.0 - 43.0 % 02/07/2019 5:59 AM CDT [facility] Monocytes % 8.6 5.0 - 13.0 % 02/07/2019 5:59 AM T [facility] Eosinophils % 5.7 0.0 - 6.0 % 02/07/2019 5:59 AM [facility] Basophils % 0.6 0.0 - 2.0 % 02/07/2019 5:59 AM CDT [facility] Immature Granulocytes 0.7 0 - 1 % 02/07/2019 5:59 AM [facility] Neutrophil Absolute 7.97(H) 2.01 - 7.14 x10E9/L 02/07/2019 5:59 AM CDT [facility] Lymphocytes Absolute 0.50(L) 1.07 - 3.94 x10E9/L 02/07/2019 5:59 AM CDT [facility] Monocytes Absolute 0.86 0.26 - 1.07 x10E9/L 02/07/2019 5:59 AM CDT [facility] Eosinophils Absolute 0.57(H) 0 - 0.47 x10E9/L 02/07/2019 5:59 AM CDT [facility] Basophils Absolute 0.06 0 - 0.08 x10E9/L 02/07/2019 5:59 AM CDT [facility] Immature Granulocytes Absolute 0.07(H) 0.00 - 0.06 x10E9/L 02/07/2019 5:59 AM CDT [facility] nRBC Auto 0 /100 WBC 02/07/2019 5:59 AM CDT [facility] Blood BLOOD SPECIMEN / Unknown Lab Venipuncture / Unknown 02/07/2019 4:09 AM CDT 02/07/2019 5:15 AM CDT Michelle Pratt MD LAB - HEMATOLOGY OR DERABLES [facility] [address] [place] [address] * (ABNORMAL) BASIC METABOLIC PANEL (CALCIUM TOTAL) (02/07/2019 4:09 AM CDT) Glucose 92 74 - 106 mg/dL 02/07/2019 6:13 AM [facility] Sodium 135(L) 136 - 145 mmol/L 02/07/2019 6:13 AM T [facility] Potassium 4.3 3.5 - 5.1 mmol/L 02/07/2019 6:13 AM [facility] Chloride 104 98 - 107 mmol/L 02/07/2019 6:13 AM [facility] CO2 23 23 - 31 mmol/L 02/07/2019 6:13 AM T [facility] Calcium 9.0 8.4 - 10.2 mg/dL 02/07/2019 6:13 AM T [facility] Anion Gap 8 8 - 16 mmol/L 02/07/2019 6:13 AM CDT [facility] BUN 17 8.4 - 25.7 mg/dL 02/07/2019 6:13 AM T [facility] Creatinine 1.20(H) 0.73 - 1.18 mg/dL 02/07/2019 6:13 AM CDT [facility] eGFR by MDRD 60 mL/min/1.7 3m2 02/07/2019 6:13 AM CDT [facility] eGFR by MDRD >60 mL/min/1.7 3m2 02/07/2019 6:13 AM CDT [facility] Blood BLOOD SPECIMEN / Unknown Lab Venipuncture / Unknown 02/07/2019 4:09 AM CDT 02/07/2019 5:15 AM CDT Michelle Pratt MD LAB - CHEMISTRY RAFFY [place] Performing Organization Address [place]/[facility]/ZIP Co de Phone Number [facility] [address] [place] [phone] * VANCOMYCIN LEVEL RANDOM (02/07/2019 4:09 AM CDT) Pathologist [facility] Vancomycin Random 20.9 ug/mL 02/07/2019 6:27 AM CDT [facility] Blood BLOOD SPECIMEN / Unknown Lab Venipuncture / Unknown 02/07/2019 4:09 AM CDT 02/07/2019 5:15 AM CDT Narrative [facility] - 02/07/2019 6:27 AM CDT No reference range available for random Vancomycin levels. All results interpreted by ordering physician. Yasmany Oh MD LAB - CHEMISTRY ROYCE KLINE Performing Organization Address [place]/[facility] Co de Phone Number [facility] [address] [place] [phone] * (ABNORMAL) CBC W AUTO DIFFERENTIAL (02/06/2019 4:19 AM CDT) WBC 9.1 4.4 - 10.7 x10E9/L 02/06/2019 4:53 AM CDT [facility] WBC Corrected 02/06/2019 4:53 AM CDT [facility] RBC 2.94(L) 3.80 - 5.40 x10E12/L 02/06/2019 4:53 AM CDT [facility] Hemoglobin 7.9(L) 12.0 - 17.6 gm/dL 02/06/2019 4:53 AM CDT [facility] Hematocrit 27.5(L) 35.2 - 51.7 % 02/06/2019 4:53 AM CDT [facility] MCV 93.5 80.7 - 98.3 fl 02/06/2019 4:53 AM CDT [facility] MCH 26.9 26.7 - 34.0 pg 02/06/2019 4:53 AM CDT [facility] MCHC 28.7(L) 30.8 - 35.9 gm/dL 02/06/2019 4:53 AM [facility] Platelet Count 189 153 - 416 x10E9/L 02/06/2019 4:53 AM [facility] RDW-CV 15.8(H) 12.1 - 14.9 % 02/06/2019 4:53 AM [facility] MPV 12.1 9.4 - 12.9 fl 02/06/2019 4:53 AM [facility] Neutrophils % 73.8(H) 44.0 - 73.0 % 02/06/2019 4:53 AM [facility] Lymphocytes % 5.9(L) 20.0 - 43.0 % 02/06/2019 4:53 AM [facility] Monocytes % 10.9 5.0 - 13.0 % 02/06/2019 4:53 AM [facility] Eosinophils % 8.2(H) 0.0 - 6.0 % 02/06/2019 4:53 AM [facility] Basophils % 0.4 0.0 - 2.0 % 02/06/2019 4:53 AM [facility] Immature Granulocytes 0.8 0 - 1 % 02/06/2019 4:53 AM [facility] Neutrophil Absolute 6.68 2.01 - 7.14 x10E9/L 02/06/2019 4:53 AM [facility] Lymphocytes Absolute 0.53(L) 1.07 - 3.94 x10E9/L 02/06/2019 4:53 AM [facility] Monocytes Absolute 0.99 0.26 - 1.07 x10E9/L 02/06/2019 4:53 AM T [facility] Eosinophils Absolute 0.74(H) 0 - 0.47 x10E9/L 02/06/2019 4:53 AM T [facility] Basophils Absolute 0.04 0 - 0.08 x10E9/L 02/06/2019 4:53 AM T [facility] Immature Granulocytes Absolute 0.07(H) 0.00 - 0.06 x10E9/L 02/06/2019 4:53 AM CDT [facility] nRBC Auto 0 /100 WBC 02/06/2019 4:53 AM CDT [facility] Blood BLOOD SPECIMEN / Unknown Lab Venipuncture / Unknown 02/06/2019 4:19 AM CDT 02/06/2019 4:42 AM CDT Michelle Pratt MD LAB - HEMATOLOGY OR DERABLES [facility] [address] [place] [address] * (ABNORMAL) BASIC METABOLIC PANEL (CALCIUM TOTAL) (02/06/2019 4:19 AM CDT) Glucose 110(H) 74 - 106 mg/dL 02/06/2019 5:24 AM [facility] Sodium 136 136 - 145 mmol/L 02/06/2019 5:24 AM [facility] Potassium 4.7 3.5 - 5.1 mmol/L 02/06/2019 5:24 AM [facility] Chloride 106 98 - 107 mmol/L 02/06/2019 5:24 AM CDT [facility] CO2 23 23 - 31 mmol/L 02/06/2019 5:24 AM [facility] Calcium 8.8 8.4 - 10.2 mg/dL 02/06/2019 5:24 AM [facility] Anion Gap 7(L) 8 - 16 mmol/L 02/06/2019 5:24 AM [facility] BUN 17 8.4 - 25.7 mg/dL 02/06/2019 5:24 AM [facility] Creatinine 1.23(H) 0.73 - 1.18 mg/dL 02/06/2019 5:24 AM [facility] eGFR by MDRD 58 mL/min/1.7 3m2 02/06/2019 5:24 AM [facility] eGFR by MDRD >60 mL/min/1.7 3m2 02/06/2019 5:24 AM CDT [facility] Blood BLOOD SPECIMEN / Unknown Lab Venipuncture / Unknown 02/06/2019 4:19 AM CDT 02/06/2019 4:41 AM CDT Michelle Pratt MD LAB - CHEMISTRY ORD ERABLES Performing Organization Address [place]/[facility] Co de Phone Number [facility] [address] [place] [phone] * VANCOMYCIN LEVEL RANDOM (02/06/2019 4:19 AM CDT) [facility] Vancomycin Random 19.2 ug/mL 02/06/2019 5:26 AM CDT [facility] Blood BLOOD SPECIMEN / Unknown Lab Venipuncture / Unknown 02/06/2019 4:19 AM CDT 02/06/2019 4:41 AM CDT Narrative [facility] - 02/06/2019 5:26 AM CDT No reference range available for random Vancomycin levels. All results interpreted by ordering physician. Michelle Pratt MD LAB - CHEMISTRY ORD ERABLES Performing Organization Address [place]/[facility] Co de Phone Number [facility] [address] [place] [phone] * (ABNORMAL) CBC W AUTO DIFFERENTIAL (02/05/2019 2:38 AM CDT) [facility] WBC 10.6 4.4 - 10.7 x10E9/L 02/05/2019 3:27 AM CDT [facility] WBC Corrected 02/05/2019 3:27 AM CDT [facility] RBC 3.08(L) 3.80 - 5.40 x10E12/L 02/05/2019 3:27 AM CDT [facility] Hemoglobin 8.5(L) 12.0 - 17.6 gm/dL 02/05/2019 3:27 AM CDT [facility] Hematocrit 27.9(L) 35.2 - 51.7 % 02/05/2019 3:27 AM CDT [facility] MCV 90.6 80.7 - 98.3 fl 02/05/2019 3:27 AM CDT [facility] MCH 27.6 26.7 - 34.0 pg 02/05/2019 3:27 AM CDT [facility] MCHC 30.5(L) 30.8 - 35.9 gm/dL 02/05/2019 3:27 AM [facility] Platelet Count 220 153 - 416 x10E9/L 02/05/2019 3:27 AM [facility] RDW-CV 15.9(H) 12.1 - 14.9 % 02/05/2019 3:27 AM [facility] MPV 12.0 9.4 - 12.9 fl 02/05/2019 3:27 AM [facility] Neutrophils % 75.3(H) 44.0 - 73.0 % 02/05/2019 3:27 AM [facility] Lymphocytes % 5.2(L) 20.0 - 43.0 % 02/05/2019 3:27 AM [facility] Monocytes % 10.2 5.0 - 13.0 % 02/05/2019 3:27 AM [facility] Eosinophils % 8.5(H) 0.0 - 6.0 % 02/05/2019 3:27 AM [facility] Basophils % 0.2 0.0 - 2.0 % 02/05/2019 3:27 AM [facility] Immature Granulocytes 0.6 0 - 1 % 02/05/2019 3:27 AM [facility] Neutrophil Absolute 7.96(H) 2.01 - 7.14 x10E9/L 02/05/2019 3:27 AM [facility] Lymphocytes Absolute 0.55(L) 1.07 - 3.94 x10E9/L 02/05/2019 3:27 AM [facility] Monocytes Absolute 1.08(H) 0.26 - 1.07 x10E9/L 02/05/2019 3:27 AM [facility] Eosinophils Absolute 0.90(H) 0 - 0.47 x10E9/L 02/05/2019 3:27 AM [facility] Basophils Absolute 0.02 0 - 0.08 x10E9/L 02/05/2019 3:27 AM [facility] Immature Granulocytes Absolute 0.06 0.00 - 0.06 x10E9/L 02/05/2019 3:27 AM [facility] nRBC Auto 0 /100 WBC 02/05/2019 3:27 AM [facility] Blood BLOOD SPECIMEN / Unknown Lab Venipuncture / Unknown 02/05/2019 2:38 AM CDT 02/05/2019 3:14 AM CDT Michelle Pratt MD LAB - HEMATOLOGY OR DERABLES Performing Organization Address [place]/[facility]/ZIP Co de Phone Number [facility] [address] [phone] * (ABNORMAL) BASIC METABOLIC PANEL (CALCIUM TOTAL) (02/05/2019 2:38 AM CDT) [facility] Glucose 118(H) 74 - 106 mg/dL 02/05/2019 3:41 AM CDT [facility] Sodium 136 136 - 145 mmol/L 02/05/2019 3:41 AM CDT [facility] Potassium 4.2 3.5 - 5.1 mmol/L 02/05/2019 3:41 AM CDT [facility] Chloride 107 98 - 107 mmol/L 02/05/2019 3:41 AM CDT [facility] CO2 22(L) 23 - 31 mmol/L 02/05/2019 3:41 AM CDT [facility] Calcium 8.6 8.4 - 10.2 mg/dL 02/05/2019 3:41 AM CDT [facility] Anion Gap 7(L) 8 - 16 mmol/L 02/05/2019 3:41 AM CDT [facility] BUN 20 8.4 - 25.7 mg/dL 02/05/2019 3:41 AM CDT [facility] Creatinine 1.24(H) 0.73 - 1.18 mg/dL 02/05/2019 3:41 AM CDT [facility] eGFR by MDRD 58 mL/min/1.7 3m2 02/05/2019 3:41 AM CDT [facility] eGFR by MDRD >60 mL/min/1.7 3m2 02/05/2019 3:41 AM CDT [facility] Blood BLOOD SPECIMEN / Unknown Lab Venipuncture / Unknown 02/05/2019 2:38 AM CDT 02/05/2019 3:14 AM CDT Michelle Pratt MD LAB - CHEMISTRY ORD ERABLES [facility] [address] [place] [id number] * VANCOMYCIN LEVEL RANDOM (02/05/2019 2:38 AM CDT) [facility] Vancomycin Random 21.8 ug/mL 02/05/2019 3:47 AM CDT [facility] Blood BLOOD SPECIMEN / Unknown Lab Venipuncture / Unknown 02/05/2019 2:38 AM CDT 02/05/2019 3:14 AM CDT Narrative [facility] - 02/05/2019 3:47 AM CDT No reference range available for random Vancomycin levels. All results interpreted by ordering physician. Yasmany Oh MD LAB - CHEMISTRY ROYCE KLINE Performing Organization Address [place]/[facility] Co de Phone Number [facility] [address] [place] [phone] * GLUCOSE - POINT OF CARE (02/04/2019 5:16 PM CDT) [facility] Glucose WB/POC 101 70 - 106 mg/dL 02/05/2019 7:00 AM CDT [facility] Specimen Type Arterial/C apillary 02/05/2019 7:00 AM CDT [facility] Blood BLOOD SPECIMEN / Unknown 02/04/2019 5:16 PM CDT 02/05/2019 6:59 AM CDT Michelle Pratt MD LAB - POINT OF CARE ORDERABLES Performing Organization Address [place]/[facility] Co de Phone Number [facility] [address] [place] [phone] * (ABNORMAL) VANCOMYCIN LEVEL TROUGH (02/04/2019 2:12 PM CDT) [facility] Vancomycin Trough 28.6(HH) 10.0 - 20.0 ug/mL 02/04/2019 2:35 PM CDT [facility] Blood BLOOD SPECIMEN / Unknown Lab Venipuncture / Unknown 02/04/2019 2:12 PM CDT 02/04/2019 2:16 PM CDT Yasmany Oh MD LAB - CHEMISTRY ORDMarj KLINE Performing Organization Address City/[facility]/ZIP Co de Phone Number [facility] [address] [place] [address] * (ABNORMAL) GLUCOSE - POINT OF CARE (02/04/2019 12:09 PM CDT) Glucose WB/POC 111(H) 70 - 106 mg/dL 02/04/2019 2:47 PM CDT [facility] Specimen Type Arterial/C apillary 02/04/2019 2:47 PM CDT [facility] Blood BLOOD SPECIMEN / Unknown 02/04/2019 12:09 PM CDT 02/04/2019 2:46 PM CDT Michelle Pratt MD LAB - POINT OF CARE ORDERABLES Performing Organization Address [place]/[facility] Co de Phone Number [facility] [address] [place] [address] * (ABNORMAL) CULTURE WOUND+GRAM STAIN (02/04/2019 11:29 AM CDT) Culture Rare Staphylococcus aureus methicillin-resistan t (MRSA)(A) UMESH 02/06/2019 11:57 AM CDT [facility] Gram Stain Heavy Polymorphonuclear cells 02/06/2019 11:57 AM CDT [facility] Gram Stain Moderate Red blood cells 02/06/2019 11:57 AM CDT [facility] Gram Stain No organisms seen 019 11:57 AM CDT [facility] Microbiology ENTIRE [place] REGION / Unknown Collection / Unknown 02/04/2019 11:29 AM CDT 02/04/2019 12:01 PM CDT Narrative [facility] - 02/06/2019 11:57 AM CDT Methicillin-resistant [...] LAB - MICROBIOLOGY ORDERABLES Performing Organization Address City/[facility]/ZIP Co de Phone Number [facility] [address] [place] [address], [facility] [phone] * CULTURE ANAEROBE (02/04/2019 11:29 AM CDT) Culture No anaerobic organisms isolated UMESH 02/09/2019 11:40 AM CDT [facility] Microbiology [place] / Unknown Collection / Unknown 02/04/2019 11:29 AM CDT 02/04/2019 12:08 PM CDT Narrative [facility] - 02/09/2019 11:40 AM CDT Surgical Description: Right Hip Larry Alexander MD LAB - MICROBIOLOGY ORDERABLES [facility] [address] [place] [address], [facility] [phone] * (ABNORMAL) CULTURE TISSUE+GRAM STAIN (02/04/2019 11:29 AM CDT) Culture Rare Staphylococcus aureus methicillin-resistan t (MRSA)(AA) UMESH 02/06/2019 11:37 AM CDT [facility] Gram Stain Moderate Polymorphonuclear cells 02/06/2019 11:37 AM CDT [facility] Gram Stain Heavy Red blood cells 02/06/2019 11:37 AM T [facility] Gram Stain No organisms seen 019 11:37 AM T [facility] Microbiology [place] / Unknown Collection / Unknown 02/04/2019 11:29 AM CDT 02/04/2019 12:08 PM CDT Narrative [facility] - 02/06/2019 11:37 AM CDT Methicillin-resistant [...] Larry Alexander MD LAB - MICROBIOLOGY ORDERABLES [facility] [address] [place] [address], [facility] [phone] * CULTURE ANAEROBE (02/04/2019 11:29 AM CDT) Culture No anaerobic organisms isolated UMESH 02/09/2019 11:40 AM T [facility] Microbiology [place] / Unknown Collection / Unknown 02/04/2019 11:29 AM CDT 02/04/2019 12:08 PM CDT Narrative [facility] - 02/09/2019 11:40 AM CDT Surgical Description: Right Hip Larry Alexander MD LAB - MICROBIOLOGY ORDERABLES Performing Organization Address City/[facility]/ZIP Co de Phone Number [facility] [address] [phone] * GLUCOSE - POINT OF CARE (02/04/2019 8:17 AM CDT) Glucose WB/POC 101 70 - 106 mg/dL 02/04/2019 8:48 AM CDT [facility] Specimen Type Arterial/C apillary 02/04/2019 8:48 AM CDT [facility] Blood BLOOD SPECIMEN / Unknown 02/04/2019 8:17 AM CDT 02/04/2019 8:48 AM CDT Michelle Pratt MD LAB - POINT OF CARE ORDERABLES Performing Organization Address City/[facility]/ZIP Co de Phone Number [facility] [address] [place] [address] * PT PTT PANEL (02/04/2019 7:37 AM CDT) PT 11.1 9.5 - 11.6 sec 02/04/2019 9:12 AM CDT [facility] INR 1.0 0.9 - 1.1 02/04/2019 9:12 AM CDT [facility] PTT 26.4 21.0 - 32.0 sec 02/04/2019 9:12 AM CDT [facility] Blood BLOOD SPECIMEN / Unknown 02/04/2019 7:37 AM CDT 02/04/2019 9:03 AM CDT Narrative [facility] - 02/04/2019 9:12 AM CDT Conventional Warfarin Anticoagulant Therapy: INR Reference Range: ??2.0-3.0 Intensive Warfarin Anticoagulant Therapy: INR Reference Range: ? 2.5-3.5 Heparin Therapeutic Range for PTT: 50.5 - 74.3 seconds. Michelle Pratt MD LAB - COAGULATION O RDERABLES Performing Organization Address City/[facility]/ZIP Co de Phone Number [facility] [address] [place], [place] [phone] * (ABNORMAL) CBC W/O DIFFERENTIAL (02/04/2019 7:37 AM CDT) [facility] WBC 10.6 4.4 - 10.7 x10E9/L 02/04/2019 8:35 AM CDT [facility] RBC 3.26(L) 3.80 - 5.40 x10E12/L 02/04/2019 8:35 AM CDT [facility] Hemoglobin 8.7(L) 12.0 - 17.6 gm/dL 02/04/2019 8:35 AM CDT [facility] Hematocrit 30.0(L) 35.2 - 51.7 % 02/04/2019 8:35 AM CDT [facility] MCV 92.0 80.7 - 98.3 fl 02/04/2019 8:35 AM CDT [facility] MCH 26.7 26.7 - 34.0 pg 02/04/2019 8:35 AM CDT [facility] MCHC 29.0(L) 30.8 - 35.9 gm/dL 02/04/2019 8:35 AM CDT [facility] Platelet Count 212 153 - 416 x10E9/L 02/04/2019 8:35 AM CDT [facility] RDW-CV 15.9(H) 12.1 - 14.9 % 02/04/2019 8:35 AM CDT [facility] MPV 11.9 9.4 - 12.9 fl 02/04/2019 8:35 AM CDT [facility] Blood BLOOD SPECIMEN / Unknown Lab Venipuncture / Unknown 02/04/2019 7:37 AM CDT 02/04/2019 8:25 AM CDT Jason Blackburn MD LAB - HEMATOLOGY ORD ERABLES Performing Organization Address [place]/[facility]/ZIP Co de Phone Number [facility] [address] [place], [place] [phone] * (ABNORMAL) URINALYSIS REFLEX MICROSCOPIC REFLEX CULTURE (02/04/2019 6:17 AM CDT) Color UA Yellow Straw, Yellow 02/04/2019 6:43 AM T [facility] Clarity UA Cloudy(A) Clear 02/04/2019 6:43 AM CDT [facility] Glucose UA Negative Negative 02/04/2019 6:43 AM [facility] Bilirubin UA Negative Negative 02/04/2019 6:43 AM T [facility] Ketone UA Trace(A) Negative 02/04/2019 6:43 AM T [facility] Specific [place] UA 1.021 1.005 - 1.030 02/04/2019 6:43 AM [facility] Blood UA Negative Negative 02/04/2019 6:43 AM [facility] pH UA 5.0 5.0 - 8.0 pH 02/04/2019 6:43 AM [facility] Protein UA Negative Negative 02/04/2019 6:43 AM [facility] Urobilinogen UA Negative Negative mg/dL 02/04/2019 6:43 AM [facility] Nitrite UA Negative Negative 02/04/2019 6:43 AM [facility] Leukocyte UA Negative Negative 02/04/2019 6:43 AM [facility] Urine Microscopy Urine microscopy not indicated 02/04/2019 6:43 AM [facility] Reflex Status Culture not indicated 02/04/2019 6:43 AM [facility] Urine URINE SPECIMEN OBTAINED BY CLEAN CATCH PROCEDURE / Unknown Collection / Unknown 02/04/2019 6:17 AM CDT 02/04/2019 6:24 AM CDT Narrative [facility] - 02/04/2019 6:43 AM T Ascorbic Acid can cause false negative urine strip tests for blood, glucose, nitrite, and bilirubin. Yasmany Oh MD LAB - URINALYSIS ORD ERABLES [facility] [address] [place] [address] * (ABNORMAL) BASIC METABOLIC PANEL (CALCIUM TOTAL) (02/04/2019 2:34 AM CDT) Glucose 114(H) 74 - 106 mg/dL 02/04/2019 4:13 AM CDT [facility] Sodium 135(L) 136 - 145 mmol/L 02/04/2019 4:13 AM CDT [facility] Potassium 3.7 3.5 - 5.1 mmol/L 02/04/2019 4:13 AM CDT [facility] Chloride 106 98 - 107 mmol/L 02/04/2019 4:13 AM CDT [facility] CO2 21(L) 23 - 31 mmol/L 02/04/2019 4:13 AM CDT [facility] Calcium 8.6 8.4 - 10.2 mg/dL 02/04/2019 4:13 AM CDT [facility] Anion Gap 8 8 - 16 mmol/L 02/04/2019 4:13 AM CDT [facility] BUN 21 8.4 - 25.7 mg/dL 02/04/2019 4:13 AM CDT [facility] Creatinine 1.13 0.73 - 1.18 mg/dL 02/04/2019 4:13 AM CDT [facility] eGFR by MDRD >60 mL/min/1.7 3m2 02/04/2019 4:13 AM CDT [facility] eGFR by MDRD >60 mL/min/1.7 3m2 02/04/2019 4:13 AM CDT [facility] Blood BLOOD SPECIMEN / Unknown Lab Venipuncture / Unknown 02/04/2019 2:34 AM CDT 02/04/2019 3:32 AM CDT Michelle Pratt MD LAB - CHEMISTRY ORD ERABLES [facility] [address] [place] [address] * PRETEST TYPE & SCREEN (02/04/2019 2:34 AM CDT) ABO A 02/04/2019 4:07 AM CDT [facility] Rh Type Positive 02/04/2019 4:07 AM CDT [facility] Comment:History checked. Col lect retype. Antibody Screen Negative 02/04/2019 4:07 AM CDT [facility] Blood Bank BLOOD SPECIMEN / Unknown Lab Venipuncture / Unknown 02/04/2019 2:34 AM CDT 02/04/2019 3:34 AM CDT Jeffrey Angelo MD LAB - BLOOD BANK OR DERABLES Performing Organization Address [place]/[facility] Co de Phone Number [facility] [address] [place] [id number] [phone] * (ABNORMAL) GLUCOSE - POINT OF CARE (02/03/2019 8:35 PM CDT) Glucose WB/POC 131(H) 70 - 106 mg/dL 02/03/2019 9:51 PM CDT [facility] Specimen Type Arterial/C apillary 02/03/2019 9:51 PM CDT [facility] Blood BLOOD SPECIMEN / Unknown 02/03/2019 8:35 PM CDT 02/03/2019 9:51 PM CDT Michelle Pratt MD LAB - POINT OF CARE ORDERABLES Performing Organization Address [place]/[facility] Co de Phone Number [facility] [address] [place] [address] * (ABNORMAL) GLUCOSE - POINT OF CARE (02/03/2019 5:22 PM CDT) Pathologist [facility] Glucose WB/POC 114(H) 70 - 106 mg/dL 02/03/2019 7:05 PM CDT [facility] Specimen Type Arterial/C apillary 02/03/2019 7:05 PM CDT [facility] Blood BLOOD SPECIMEN / Unknown 02/03/2019 5:22 PM CDT 02/03/2019 7:05 PM CDT Michelle Pratt MD LAB - POINT OF CARE ORDERABLES Performing Organization Address [place]/[facility] Co de Phone Number [facility] [address] [place] [phone] * EKG 12-LEAD (02/03/2019 4:29 PM CDT) Ventricular Rate 81 BPM [facility] MUSE Atrial Rate 166 BPM [facility] M[facility] QRS Duration ms 92 ms [facility] MUSE Q-T Interval ms 372 ms [facility] MUSE QTC Calculation (Bezet) 432 ms [facility] MUSE Calculated R [place] -6 degrees [facility] MUSE Calculated T [place] 25 degrees [facility] MUSE Interpretation EKG ATRIAL FIBRILLATION LOW VOLTAGE QRS SEPTAL INFARCT , AGE UNDETERMINED ABNORMAL ECG Confirmed by DO Campoverde Stephanie ([id number]) on 02/06/2019 9:13:20 AM [facility] MUSE 02/03/2019 4:29 PM CDT 02/06/2019 9:13 AM CDT Michelle Pratt MD ECG ORDERABLES Performing Organization Address City/[facility]/ZIP Co de Phone Number [facility] * (ABNORMAL) GLUCOSE - POINT OF CARE (02/03/2019 1:00 PM CDT) Glucose WB/POC 155(H) 70 - 106 mg/dL 02/03/2019 7:05 PM CDT [facility] Specimen Type Arterial/C apillary 02/03/2019 7:05 PM CDT [facility] Blood BLOOD SPECIMEN / Unknown 02/03/2019 1:00 PM CDT 02/03/2019 7:05 PM CDT Michelle Pratt MD LAB - POINT OF CARE ORDERABLES Performing Organization Address [place]/[facility] Co de Phone Number [facility] [address] [place] [phone] * GLUCOSE - POINT OF CARE (02/03/2019 10:10 AM CDT) Glucose WB/POC 106 70 - 106 mg/dL 02/03/2019 7:05 PM CDT [facility] Specimen Type Arterial/C apillary 02/03/2019 7:05 PM CDT [facility] Blood BLOOD SPECIMEN / Unknown 02/03/2019 10:10 AM CDT 02/03/2019 7:05 PM CDT Michelle Pratt MD LAB - POINT OF CARE ORDERABLES Performing Organization Address City/[facility] Co de Phone Number [facility] [address] [place] [phone] * XR FEMUR 2 VW RIGHT (02/03/2019 [...] Blackburn MD DIAGNOSTIC IMAGING O RDERABLES * LACTIC ACID BLOOD (02/03/2019 4:13 AM CDT) Lactic Acid 0.7 0.5 - 2.2 mmol/L 02/03/2019 5:15 AM CDT [facility] Blood BLOOD SPECIMEN / Unknown Lab Venipuncture / Unknown 02/03/2019 4:13 AM CDT 02/03/2019 4:39 AM CDT Yasmany Oh MD LAB - CHEMISTRY ROYCE KLINE Performing Organization Address [place]/[facility] Co de Phone Number [facility] [address] [place] [phone] * HEMOGLOBIN A1C (02/03/2019 1:06 AM CDT) Pathologist [facility] Hemoglobin A1c 5.8 4.0 - 6.1 % 02/03/2019 10:11 AM CDT [facility] Estimated Average Glucose 120 mg/dL 02/03/2019 10:11 AM CDT [facility] Blood BLOOD SPECIMEN / Unknown Lab Venipuncture / Unknown 02/03/2019 1:06 AM CDT 02/03/2019 1:16 AM CDT Michelle Pratt MD LAB - CHEMISTRY ORD JANUSZBLES Performing Organization Address [place]/[facility] de Phone Number [facility] [address] [place], [place] [phone] * PT-INR (02/03/2019 1:06 AM CDT) Pathologist [facility] PT 11.3 9.5 - 11.6 sec 02/03/2019 1:36 AM CDT [facility] INR 1.1 0.9 - 1.1 02/03/2019 1:36 AM CDT [facility] Blood BLOOD SPECIMEN / Unknown Lab Venipuncture / Unknown 02/03/2019 1:06 AM CDT 02/03/2019 1:16 AM CDT Narrative [facility] - 02/03/2019 1:36 AM CDT Conventional Warfarin Anticoagulant Therapy: INR Reference Range: ??2.0-3.0 Intensive Warfarin Anticoagulant Therapy: INR Reference Range: ? 2.5-3.5 Yasmany Oh MD LAB - COAGULATION OR DERABLES Performing Organization Address [place]/[facility] Co de Phone Number [facility] [address] [place], [place] [phone] * (ABNORMAL) COMPREHENSIVE METABOLIC PANEL (02/03/2019 1:06 AM CDT) Pathologist [facility] Glucose 112(H) 74 - 106 mg/dL 02/03/2019 1:41 AM CDT [facility] Sodium 134(L) 136 - 145 mmol/L 02/03/2019 1:41 AM CDT [facility] Potassium 4.3 3.5 - 5.1 mmol/L 02/03/2019 1:41 AM CDT [facility] Chloride 101 98 - 107 mmol/L 02/03/2019 1:41 AM CDT [facility] CO2 25 23 - 31 mmol/L 02/03/2019 1:41 AM CDT [facility] Calcium 9.5 8.4 - 10.2 mg/dL 02/03/2019 1:41 AM CDT [facility] Anion Gap 8 8 - 16 mmol/L 02/03/2019 1:41 AM CDT [facility] BUN 19 8.4 - 25.7 mg/dL 02/03/2019 1:41 AM CDT [facility] Creatinine 1.22(H) 0.73 - 1.18 mg/dL 02/03/2019 1:41 AM T [facility] Alkaline Phosphatase 304(H) 40 - 150 U/L 02/03/2019 1:41 AM CDT [facility] ALT 21 13 - 61 U/L 02/03/2019 1:41 AM CDT [facility] AST 20 5 - 34 U/L 02/03/2019 1:41 AM T [facility] Protein Total 7.0 6.4 - 8.3 gm/dL 02/03/2019 1:41 AM T [facility] Albumin 3.1(L) 3.2 - 4.6 gm/dL 02/03/2019 1:41 AM T [facility] Bilirubin Total 1.0 0.2 - 1.2 mg/dL 02/03/2019 1:41 AM CDT [facility] eGFR by MDRD 59 mL/min/1.7 3m2 02/03/2019 1:41 AM CDT [facility] eGFR by MDRD >60 mL/min/1.7 3m2 02/03/2019 1:41 AM [facility] Blood BLOOD SPECIMEN / Unknown Lab Venipuncture / Unknown 02/03/2019 1:06 AM CDT 02/03/2019 1:16 AM CDT Yasmany Oh MD LAB - [facility]Y [facility] Organization Address City/State/ZIP Co de Phone Number [facility] [address] [place] [address] * (ABNORMAL) CBC W AUTO DIFFERENTIAL (02/03/2019 1:06 AM CDT) WBC 14.2(H) 4.4 - 10.7 x10E9/L 02/03/2019 1:22 AM CDT [facility] WBC Corrected 02/03/2019 1:22 AM CDT [facility] RBC 3.64(L) 3.80 - 5.40 x10E12/L 02/03/2019 1:22 AM CDT [facility] Hemoglobin 9.9(L) 12.0 - 17.6 gm/dL 02/03/2019 1:22 AM CDT [facility] Hematocrit 32.9(L) 35.2 - 51.7 % 02/03/2019 1:22 AM CDT [facility] MCV 90.4 80.7 - 98.3 fl 02/03/2019 1:22 AM CDT [facility] MCH 27.2 26.7 - 34.0 pg 02/03/2019 1:22 AM CDT [facility] MCHC 30.1(L) 30.8 - 35.9 gm/dL 02/03/2019 1:22 AM CDT [facility] Platelet Count 241 153 - 416 x10E9/L 02/03/2019 1:22 AM CDT [facility] RDW-CV 15.9(H) 12.1 - 14.9 % 02/03/2019 1:22 AM CDT [facility] MPV 12.1 9.4 - 12.9 fl 02/03/2019 1:22 AM CDT [facility] Neutrophils % 79.6(H) 44.0 - 73.0 % 02/03/2019 1:22 AM CDT [facility] Lymphocytes % 4.7(L) 20.0 - 43.0 % 02/03/2019 1:22 AM CDT [facility] Monocytes % 9.6 5.0 - 13.0 % 02/03/2019 1:22 AM CDT [facility] Eosinophils % 5.2 0.0 - 6.0 % 02/03/2019 1:22 AM CDT [facility] Basophils % 0.4 0.0 - 2.0 % 02/03/2019 1:22 AM CDT [facility] Immature Granulocytes 0.5 0 - 1 % 02/03/2019 1:22 AM CDT [facility] Neutrophil Absolute 11.28(H) 2.01 - 7.14 x10E9/L 02/03/2019 1:22 AM CDT [facility] Lymphocytes Absolute 0.66(L) 1.07 - 3.94 x10E9/L 02/03/2019 1:22 AM CDT [facility] Monocytes Absolute 1.36(H) 0.26 - 1.07 x10E9/L 02/03/2019 1:22 AM T [facility] Eosinophils Absolute 0.73(H) 0 - 0.47 x10E9/L 02/03/2019 1:22 AM T [facility] Basophils Absolute 0.05 0 - 0.08 x10E9/L 02/03/2019 1:22 AM CDT [facility] Immature Granulocytes Absolute 0.07(H) 0.00 - 0.06 x10E9/L 02/03/2019 1:22 AM T [facility] nRBC Auto 0 /100 WBC 02/03/2019 1:22 AM CDT [facility] Blood BLOOD SPECIMEN / Unknown Lab Venipuncture / Unknown 02/03/2019 1:06 AM CDT 02/03/2019 1:16 AM CDT Yasmany Oh MD LAB - HEMATOLOGY [place] Performing Organization Address City/[facility] de Phone Number [facility] [address], [place] [phone] * LACTIC ACID BLOOD (02/03/2019 1:06 AM CDT) Lactic Acid 0.8 0.5 - 2.2 mmol/L 02/03/2019 1:37 AM CDT [facility] Blood BLOOD SPECIMEN / Unknown Lab Venipuncture / Unknown 02/03/2019 1:06 AM CDT 02/03/2019 1:16 AM CDT Yasmany Oh MD LAB - CHEMISTRY ORDMarj KLINE [facility] [address] [place] [address] * CULTURE BLOOD (02/02/2019 10:38 PM CDT) Culture No growth day 5 [facility] 02/08/2019 2:31 AM CDT [facility] Blood PERIPHERAL BLOOD / Unknown Lab Venipuncture / Unknown 02/02/2019 10:38 PM CDT 02/02/2019 10:44 PM CDT Yasmany Oh MD LAB - MICROBIOLOGY O RIO Performing Organization Address [place]/[facility] Co de Phone Number [facility] [address] [place] [address], [facility] [phone] * CULTURE BLOOD (02/02/2019 10:38 PM CDT) Culture No growth day 5 [facility] 02/08/2019 2:31 AM CDT [facility] Blood PERIPHERAL BLOOD / Unknown Lab Venipuncture / Unknown 02/02/2019 10:38 PM CDT 02/02/2019 10:44 PM CDT Yasmany Oh MD LAB - MICROBIOLOGY O RIO Performing Organization Address [place]/[facility] Co de Phone Number [facility] [address] [place] [address], [facility] [phone] * LACTIC ACID BLOOD (02/02/2019 10:38 PM CDT) Lactic Acid 0.9 0.5 - 2.2 mmol/L 02/02/2019 11:00 PM CDT [facility] Blood BLOOD SPECIMEN / Unknown Lab Venipuncture / Unknown 02/02/2019 10:38 PM CDT 02/02/2019 10:44 PM CDT Yasmany Oh MD LAB - CHEMISTRY ROYCE KLINE Performing Organization Address [place]/ZIP Co de Phone Number [facility] [id number], [place] [id number] documented in this encounter Visit Diagnoses Diagnosis 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, 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 Pain Generalized pain Diagnosis unknown Other unknown and unspecified cause of morbidity or mortality PICC (peripherally inserted central catheter) in place Fitting and adjustment of vascular catheter 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 Flushing may be contraindicated if concentrated drips are infusing. $ Given 02/14/2019 8:50 PM CDT 10 mL $ Given 02/14/2019 2:24 PM CDT 10 mL 0.9% NaCl injection 10-40 mL 10-40 mL, Intracatheter, PRN, Other, PICC line flush, Starting on Tue02/12/19 at 1726, Until Tue02/15/19 at 2009, Flush each lumen of PICC with 10ml NS IVP before and after medication/solution administration for patency and blood return. Flush each lumen of PICC with 20 ml NS IVP after each infusion of blood products or lipids, and after each blood draw. 0.9% NaCl injection 10-40 mL 10-40 mL, Intracatheter, PRN, Other, PICC line flush, Starting on Tue02/13/19 at 1332, Until Tue02/15/19 at 2009, Flush each lumen of PICC with 10ml NS IVP before and after medication/solution administration for patency and blood return. Flush each lumen of PICC with 20 ml NS IVP after each infusion of blood products or lipids, and after each blood draw. $ Given 02/14/2019 2:24 PM CDT 10 mL 0.9% nacl irrigation solution PRN, Starting on Tue02/08/19 at 1418, Until Tue02/08/19 at 1419, Intra-op $ Given 02/08/2019 2:18 PM CDT 1,000 mL See Comments acetaminophen (TYLENOL) tablet 650 mg 650 mg, Oral, EVERY 6 HOURS PRN, Fever, Mild Pain, Starting on Tue02/02/19 at 2220, Until Tue02/15/19 at 2009 $ Given 02/07/2019 12:25 PM CDT 650 mg $ Given 02/05/2019 4:32 PM CDT 650 mg $ Given 02/05/2019 8:05 AM CDT 650 mg albuterol (PROVENTIL;VENTOLIN) (2.5 MG/3ML) 0.083% nebulizer solution 2.5 mg 2.5 mg, Inhalation, EVERY 6 HOURS, First dose on Tue02/02/19 at 2215, Until Discontinued $ Given 02/15/2019 3:54 PM CDT 2.5 mg $ Given 02/15/2019 9:02 AM CDT 2.5 mg $ Given 02/15/2019 1:07 AM CDT 2.5 mg ascorbic acid (VITAMIN C) tablet 500 mg 500 mg, Oral, 2 TIMES DAILY, First dose on Tue02/02/19 at 2245, Until Discontinued $ Given 02/15/2019 10:25 AM CDT 500 mg $ Given 02/14/2019 8:49 PM CDT 500 mg $ Given 02/14/2019 9:06 AM CDT 500 mg aspirin tablet 325 mg 325 mg, Oral, 2 TIMES DAILY, First dose on Tue02/08/19 at 2100, Until Discontinued $ Given 02/15/2019 10:26 AM CDT 325 mg $ Given 02/14/2019 8:49 PM CDT 325 mg $ Given 02/14/2019 9:05 AM CDT 325 mg baclofen (LIORESAL) tablet 10 mg 10 mg, Oral, 2 TIMES DAILY PRN, Muscle Spasms, Starting on Tue02/04/19 at 1545, Until Tue02/15/19 at 2009 $ Given 02/07/2019 10:56 PM CDT 10 mg $ Given 02/07/2019 10:34 AM CDT 10 mg $ Given 02/05/2019 8:05 AM CDT 10 mg benzonatate (TESSALON) capsule 200 mg 200 mg, Oral, 3 TIMES DAILY PRN, Cough, Starting on Tue02/06/19 at 1500, Until Tue02/15/19 at 2009 bisacodyl (DULCOLAX) suppository 10 mg 10 mg, Rectal, DAILY PRN, Constipation, Starting on Tue02/06/19 at 1732, Until Tue02/15/19 at 2009 $ Given 02/11/2019 2:48 PM CDT 10 mg $ Given 02/06/2019 6:03 PM CDT 10 mg budesonide-formoterol (SYMBICORT) 160-4.5 MCG/ACT inhaler 2 puff 2 puff, Inhalation, 2 TIMES DAILY, First dose on Tue02/02/19 at 2245, Until Discontinued, Rinse mouth after usage . WASTE DISPOSAL INSTRUCTION: Send to Pharmacy for Disposal. . $ Given 02/15/2019 9:02 AM CDT 2 puffs $ Given 02/14/2019 8:19 PM CDT 2 puffs $ Given 02/14/2019 8:20 AM CDT 2 puffs clotrimazole (LOTRIMIN AF) 1 % cream Topical, 2 TIMES DAILY, 730 doses, First dose on Tue02/11/19 at 2030, Last dose on Tue02/11/20 at 0900, Apply to groin rash $ Given 02/15/2019 10:31 AM CDT $ Given 02/14/2019 8:50 PM CDT $ Given 02/14/2019 9:06 AM CDT cyanocobalamin (VITAMIN B-12) tablet 500 mcg 500 mcg, Oral, DAILY, 365 doses, First dose on 02/03/19 at 0900, Last dose on 02/02/20 at 0900 $ Given 02/15/2019 10:25 AM CDT 500 mcg $ Given 02/14/2019 9:06 AM CDT 500 mcg $ Given 02/13/2019 10:26 AM CDT 500 mcg dextrose IV 12.5-25 g 12.5-25 g (25-50 mL), Intravenous, PRN, Bedside Glucose less than 70 mg/dL -If NOT able to eat and/or NPO and with IV Access, Starting on 02/03/19 at 0958, Until Tue02/15/19 at 2009, If NOT able to eat and/or NPO and with IV Access: For Bedside Glucose 50-69 mg/dL give 25 mls D50W IVP STAT For Bedside glucose 50 mg/dL or LESS verify with a second Bedside Glucose (from a different site) and give 50 mls D50W IVP STAT Re-check and Re-treat blood glucose EVERY 10-25 minutes until blood glucose GREATER than or equal to 80 mg/dl. NOTIFY PROVIDER OF HYPOGLYCEMIC EVENT. fentaNYL (PF) (SUBLIMAZE) injection 25 mcg 25 mcg, Intravenous, EVERY 4 HOURS PRN, Severe Pain, Starting on Tue02/02/19 at 2217, Until Kellen 02/15/19 at 2009 $ Given 02/11/2019 4:04 AM CDT 25 mcg $ Given 02/09/2019 11:21 AM CDT 25 mcg $ Given 02/06/2019 11:08 AM CDT 25 mcg glucagon (GLUCAGEN) injection 1 mg 1 mg, Intramuscular, PRN, Bedside Glucose less than 70 mg/dL - If NOT able to eat and/or NPO and withOUT IV Access, Starting on 02/03/19 at 0958, Until Kellen 02/15/19 at 2009, If NOT able to eat and/or NPO and NO IV Access: For Bedside glucose 50-69 mg/dL Give 1 mg IM or SQ For Bedside Glucose LESS than 50 mg/dl verify with a second bedside glucose (from a different site) and Give 1 mg IM or SQ Re-check and Re-treat blood glucose EVERY 10-25 minutes until blood glucose GREATER than or equal to 80 mg/dl. NOTIFY PROVIDER OF HYPOGLYCEMIC EVENT. Reconstitute vial with 1 mL of sterile water for injection for a final concentration of 1 mg/mL; shake vial gently; use immediately and discard unused portion glucose (Diabetic Use) oral gel Oral, PRN, Other, Bedside Glucose less than 70 mg/dL -If able to eat and does not have swallowing difficulties, Starting on 02/03/19 at 0958, Until Kellen 02/15/19 at 2009, If able to eat and does not have swallowing difficulties: For Bedside Glucose 50 - 69 mg/dL Give 15 grams of oral carbohydrates - 1 glucose gel (see MAR) If patient refuses glucose gel, then offer: - 4 ounces of fruit juice OR - 4 ounces non-diet soda OR - 8 ounces of fat-free milk For Bedside Glucose LESS than 50 mg/dL verify with a second Bedside Glucose (from a different site) - If pt is symptomatic, do not delay treatment If the patient is exhibiting symptoms which are not consistent with the results obtained, confirm the glucose with a STAT laboratory test. Give 30 grams of oral carbohydrates - 2 glucose gels (see MAR) If patient refuses glucose gel, then offer: - 8 ounces of fruit juice OR - 8 ounces non-diet soda OR - 16 ounces of fat-free milk Re-check and Re-treat blood glucose EVERY 10-25 minutes until blood glucose GREATER than or equal to 80 mg/dl. NOTIFY PROVIDER OF HYPOGLYCEMIC EVENT. lactulose (CHRONULAC) solution 20 g 20 g, Oral, 3 TIMES DAILY PRN, Constipation, Starting on Tue02/07/19 at 1212, Until Tue02/15/19 at 2010 $ Given 02/14/2019 9:02 PM CDT 20 g $ Given 02/07/2019 12:25 PM CDT 20 g metoprolol tartrate (LOPRESSOR) tablet 25 mg 25 mg, Oral, 2 TIMES DAILY, 730 doses, First dose on Tue02/07/19 at 2200, Last dose on Tue02/07/20 at 0900 $ Given 02/15/2019 10:25 AM CDT 25 mg $ Given 02/14/2019 8:49 PM CDT 25 mg $ Given 02/14/2019 9:06 AM CDT 25 mg morphine CR 12hr (MS CONTIN) tablet 15 mg 15 mg, Oral, EVERY 12 HOURS, 730 doses, First dose on Tue02/04/19 at 2100, Last dose on Tue02/04/20 at 0900, Do not crush, chew, or cut in half. $ Given 02/15/2019 10:24 AM CDT 15 mg $ Given 02/14/2019 8:49 PM CDT 15 mg $ Given 02/14/2019 9:06 AM CDT 15 mg NaCl 0.9 % 1,000 mL with povidone-iodine (BETADINE) 35 mL irrigation PRN, Starting on Tue02/08/19 at 1418, Until Tue02/08/19 at 1419, Intra-op $ Given 02/08/2019 2:18 PM CDT 1,035 mL Ope rative Site ondansetron (ZOFRAN) injection 4 mg 4 mg, Intravenous, EVERY 6 HOURS PRN, Nausea/Vomiting, Starting on Tue02/02/19 at 2217, Until Kellen 02/15/19 at 2010, Administer over 2 to 5 minutes. $ Given 02/11/2019 10:11 AM CDT 4 mg $ Given 02/10/2019 11:37 AM CDT 4 mg $ Given 02/09/2019 9:21 AM CDT 4 mg oxyCODONE-acetaminophen (PERCOCET) 10-325 MG tablet 1 tablet 1 tablet, Oral, EVERY 4 HOURS PRN, Moderate Pain, Starting on 02/04/19 at 0910, Until Kellen 02/15/19 at 2010 $ Given 02/15/2019 1:26 AM CDT 1 tablet $ Given 02/13/2019 9:52 PM CDT 1 tablet $ Given 02/13/2019 4:50 PM CDT 1 tablet pantoprazole EC (PROTONIX) tablet 40 mg 40 mg, Oral, DAILY, First dose on 02/03/19 at 0900, Until Discontinued, Do not crush, chew, or cut in half. $ Given 02/15/2019 10:25 AM CDT 40 mg $ Given 02/14/2019 9:06 AM CDT 40 mg $ Given 02/13/2019 10:26 AM CDT 40 mg polyethylene glycol 3350 (MIRALAX) packet 17 g 17 g, Oral, DAILY, First dose (after last modification) on Tue02/06/19 at 1200, Until Discontinued, Mix in 8 ounces of water, juice, soda, coffee or tea prior to administration $ Given 02/15/2019 10:26 AM CDT 17 g $ Given 02/14/2019 9:06 AM CDT 17 g $ Given 02/12/2019 10:12 AM CDT 17 g rifAMPin (RIFADIN) capsule 600 mg 600 mg, Oral, DAILY, 365 doses, First dose on Tue02/13/19 at 1345, Last dose on Tue02/12/20 at 0900, Should be given on an empty stomach, Indication for anti-infective therapy: Documented infection, Site of anti-infective therapy: Bone/Joint $ Given 02/15/2019 10:25 AM CDT 600 mg $ Given 02/14/2019 9:06 AM CDT 600 mg $ Given 02/13/2019 4:49 PM CDT 600 mg senna-docusate (SENOKOT-S) tablet 2 tablet 2 tablet, Oral, DAILY, 365 doses, First dose on Tue02/04/19 at 1600, Last dose on Tue02/03/20 at 0900 $ Given 02/15/2019 10:25 AM CDT 2 tablets $ Given 02/14/2019 9:05 AM CDT 2 tablets $ Given 02/13/2019 10:26 AM CDT 2 tablets tamsulosin (FLOMAX) capsule 0.4 mg 0.4 mg, Oral, AT BEDTIME, 365 doses, First dose on Tue02/02/19 at 2245, Last dose on Tue02/01/20 at 2100, At the same time every day after a meal. Do not crush, chew $ Given 02/14/2019 8:49 PM CDT 0.4 mg $ Given 02/13/2019 9:53 PM CDT 0.4 mg $ Given 02/12/2019 8:23 PM CDT 0.4 mg trimethobenzamide (TIGAN) injection 200 mg 200 mg, Intramuscular, EVERY 6 HOURS PRN, Nausea/Vomiting, Starting on Tue02/11/19 at 1335, Until Tue02/15/19 at 2009, IM use only; do not administer IV vancomycin (VANCOCIN) 1 g in NaCl 0.9 % 3,000 mL irrigation PRN, Starting on Tue02/08/19 at 1417, Until Tue02/08/19 at 1419, Intra-op $ Given 02/08/2019 2:17 PM CDT Operative Site vancomycin (VANCOCIN) injection PRN, Starting on Tue02/08/19 at 1418, Until Tue02/08/19 at 1419, Intra-op $ Given 02/08/2019 2:18 PM CDT 1,000 mg Operative Site vancomycin (VANCOCIN) IV dose per pharmacy Does not apply, DIRECTED, Starting on Tue02/02/19 at 2212, Until Tue02/15/19 at 2009, Indication for anti-infective therapy: Suspected infection, Site of anti-infective therapy: Other, Other site of infection (free text): Sepsis Unknown Origin - Healthcare associated vancomycin HCl (VANCOCIN) 1,250 mg in 0.9% NaCl 250 mL IVPB 1,250 mg, at 200 mL/hr, Intravenous, EVERY 24 HOURS, 15 doses, First dose (after last modification) on Tue02/14/19 at 1700, Last dose on Tue02/28/19 at 1700, Next vancomycin level due at 1300 on 02/15. Hold the following dose if the level is greater than 21 mcg/mL., Indication for anti-infective therapy: Documented infection, Site of anti-infective therapy: Bone/Joint $ New Bag/Syringe 02/15/2019 5:35 PM CDT 1,250 mg 200 mL/hr Current Rate 02/14/2019 5:47 PM CDT 200 mL/hr $ New Bag/Syringe 02/14/2019 5:45 PM CDT 1,250 mg 200 mL /hr warfarin (COUMADIN) dose per pharmacy MISC Other, DAILY AT 1700, 365 doses, First dose on 02/11/19 at 1700, Last dose on 02/10/20 at 1700, Call pharmacy daily for warfarin order if not already available. Do not delete or modify this order unless you are discontinuing warfarin!, Diagnosis requiring anticoagulation? chronic afib, INR GOAL: 2.0-2.5 zinc sulfate (ZINCATE) capsule 220 mg 220 mg, Oral, DAILY, First dose on 02/03/19 at 0900, Until Discontinued $ Given 02/15/2019 10:25 AM CDT 220 mg $ Given 02/14/2019 9:06 AM CDT 220 mg $ Given 02/13/2019 10:27 AM CDT 220 mg documented in this encounter Active and Recently Administered Medications Times are shown in CDT. Scheduled Medication Order 02/13/2019 02/14/2019 02/15/2019 0.9% NaCl injection 10 mL (CANCELED) 10 mL, Intracatheter, EVERY 8 HOURS, 1095 doses, First dose on Tue02/12/19 at 0600, Last dose on Tue02/11/20 at 2200 0541 (Not Administered - Provider: Zbigniew Sandoval RN - Reason: IV Currently Infusing)1646 (Not Administered - Provider: Efrain Rojas RN - Reason: Documented on duplicate row)1647 ($ Given - Provider: Efrain oRjas, RN)2152 ($ Given - Provider: Chris Carter RN) 0509 ($ Given - Provider: Aurora Granados, RN) 0.9% NaCl injection 10-40 mL 10-40 mL, Intracatheter, EVERY 8 HOURS, 1095 doses, First dose on Tue02/12/19 at 1800, Last dose on Tue02/12/20 at 0600, Flush each lumen of PICC with 10ml NS IVP every 8 hours (regardless of continuous IV infusion). Flushing may be contraindicated if concentrated drips are infusing. 0542 (Not Administered - Provider: Zbigniew Sandoval RN - Reason: IV Currently Infusing)1648 (Not Administered - Provider: Efrain Rojas RN - Reason: Documented on duplicate row)215 (Not Administered - Provider: Chris Carter RN - Reason: Documented on duplicate row) 0510 (Not Administered - Provider: Aurora Granados RN - Reason: Documented on duplicate row)1424 ($ Given - Provider: Cathy Baker, RN)2050 ($ Given - Provider: Chris Carter RN) 0541 (Not Administered - Provider: Chris Carter RN - Reason: Patient sleeping)1359 (Not Administered - Provider: Gladis Pacheco RN - Reason: IV Currently Infusing) 0.9% NaCl injection 10-40 mL (CANCELED) 10-40 mL, Intracatheter, EVERY 8 HOURS, 1095 doses, First dose on Tue02/13/19 at 1415, Last dose on Tue02/13/20 at 0600, Flush each lumen of PICC with 10ml NS IVP every 8 hours (regardless of continuous IV infusion). Flushing may be contraindicated if concentrated drips are infusing. 1648 (Not Administered - Provider: Efrain Rojas RN - Reason: Documented on duplicate row)215 ($ Given - Provider: Chris Carter RN) 0510 (Not Administered - Provider: Aurora Granados RN - Reason: Documented on duplicate row)1323 (Not Administered - Provider: Cathy Baker RN - Reason: Documented on duplicate row) albuterol (PROVENTIL;VENTOLIN) (2.5 MG/3ML) 0.083% nebulizer solution 2.5 mg 2.5 mg, Inhalation, EVERY 6 HOURS, First dose on Tue02/02/19 at 2215, Until Discontinued 0147 ($ Given - Provider: Brian Paul RCP)1002 ($ Given - Provider: Citlalli Daniels RCP)1549 ($ Given - Provider: Citlalli Daniels RCP)2122 ($ Given - Provider: Lyndsay Kolb RCP) 0224 ($ Given - Provider: Lyndsay Kolb RCP)0820 ($ Given - Provider: Neva Ratliff CUT ORDER HAND)1355 ($ Given - Provider: Neva Ratliff CUT ORDER HAND)2019 ($ Given - Provider: Dru Magallon RCP) 0107 ($ Given - Provider: Dru Magallon RCP)0902 ($ Given - Provider: Citlalli Daniels RCP)1554 ($ Given - Provider: Vimal Bautista CUT ORDER HAND) ascorbic acid (VITAMIN C) tablet 500 mg 500 mg, Oral, 2 TIMES DAILY, First dose on Tue02/02/19 at 2245, Until Discontinued 1027 ($ Given - Provider: Efrain Rojas RN)215 ($ Given - Provider: Chris Carter RN) 0906 ($ Given - Provider: Cathy Baker RN)2048 ($ Given - Provider: Chris Carter RN) 1025 ($ Given - Provider: Gladis Pacheco RN) aspirin tablet 325 mg 325 mg, Oral, 2 TIMES DAILY, First dose on Tue02/08/19 at 2100, Until Discontinued 1026 ($ Given - Provider: Efrain Rojas RN)215 ($ Given - Provider: Chris Carter RN) 0905 ($ Given - Provider: Cathy Baker RN)2048 ($ Given - Provider: Chris Carter RN) 1026 ($ Given - Provider: Gladis Pacheco RN) budesonide-formoterol (SYMBICORT) 160-4.5 MCG/ACT inhaler 2 puff 2 puff, Inhalation, 2 TIMES DAILY, First dose on Tue02/02/19 at 2245, Until Discontinued, Rinse mouth after usage . WASTE DISPOSAL INSTRUCTION: Send to Pharmacy for Disposal. . 1003 ($ Given - Provider: Citlalli Daniels RCP)2127 ($ Given - Provider: Lyndsay Kolb RCP) 0820 ($ Given - Provider: Neva Ratliff RCP)2019 ($ Given - Provider: Dru Magallon RCP) 0902 ($ Given - Provider: Citlalli Daniels RCP) clotrimazole (LOTRIMIN AF) 1 % cream Topical, 2 TIMES DAILY, 730 doses, First dose on 02/11/19 at 2030, Last dose on Tue02/11/20 at 0900, Apply to groin rash 1027 ($ Given - Provider: Efrain Rojas RN)215 ($ Given - Provider: Chris Carter RN) 09 ($ Given - Provider: Cathy Baker, DONTAE)2049 ($ Given - Provider: Chris Carter RN) 1031 ($ Given - Provider: Gladis Pacheco RN) cyanocobalamin (VITAMIN B-12) tablet 500 mcg 500 mcg, Oral, DAILY, 365 doses, First dose on 02/03/19 at 0900, Last dose on Tue02/02/20 at 0900 1026 ($ Given - Provider: Efrain Rojas RN) 09 ($ Given - Provider: Cathy Baker, DONTAE) 1025 ($ Given - Provider: Gladis Pacheco RN) lidocaine (XYLOCAINE MPF) 1 % injection (COMPLETED) Intradermal, ONCE, 1 dose, On Tue02/13/19 at 1400, Use lidocaine intradermally to produce wheal to locally anesthetize site if patient has NKA to Lidocaine. 1339 ($ Given - Provider: Kristan Geller RN - Comment: during picc insert) metoprolol tartrate (LOPRESSOR) tablet 25 mg 25 mg, Oral, 2 TIMES DAILY, 730 doses, First dose on Tue02/07/19 at 2200, Last dose on Tue02/07/20 at 0900 1026 ($ Given - Provider: Efrain Rojas RN)2153 ($ Given - Provider: Chris Carter RN) 09 ($ Given - Provider: Cathy Baker, DONTAE)2048 ($ Given - Provider: Chris Carter RN) 1025 ($ Given - Provider: Gladis Pacheco RN) morphine CR 12hr (MS CONTIN) tablet 15 mg 15 mg, Oral, EVERY 12 HOURS, 730 doses, First dose on Tue02/04/19 at 2100, Last dose on Tue02/04/20 at 0900, Do not crush, chew, or cut in half. 1027 ($ Given - Provider: Efrain Rojas RN)2152 ($ Given - Provider: Chris Carter RN) 0906 ($ Given - Provider: Cathy Baker, DONTAE)2049 ($ Given - Provider: Chris Carter RN) 1024 ($ Given - Provider: Gladis Pacheco RN) pantoprazole EC (PROTONIX) tablet 40 mg 40 mg, Oral, DAILY, First dose on Tue02/03/19 at 0900, Until Discontinued, Do not crush, chew, or cut in half. 1026 ($ Given - Provider: Efrain Rojas RN) 0906 ($ Given - Provider: Cathy Baker, DONTAE) 1025 ($ Given - Provider: Gladis Pacheco, DONTAE) polyethylene glycol 3350 (MIRALAX) packet 17 g 17 g, Oral, DAILY, First dose (after last modification) on Tue02/06/19 at 1200, Until Discontinued, Mix in 8 ounces of water, juice, soda, coffee or tea prior to administration 1026 (Not Administered - Provider: Efrain Rojas RN - Reason: Refused-Patient) 0906 ($ Given - Provider: Cathy Baker RN) 1026 ($ Given - Provider: Gladis Pacheco RN) rifAMPin (RIFADIN) capsule 600 mg 600 mg, Oral, DAILY, 365 doses, First dose on Tue02/13/19 at 1345, Last dose on Tue02/12/20 at 0900, Should be given on an empty stomach, Indication for anti-infective therapy: Documented infection, Site of anti-infective therapy: Bone/Joint 1649 ($ Given - Provider: Efrain Rojas RN) 0906 ($ Given - Provider: Cathy Baker RN) 1025 ($ Given - Provider: Gladis Pacheco RN) senna-docusate (SENOKOT-S) tablet 2 tablet 2 tablet, Oral, DAILY, 365 doses, First dose on 02/04/19 at 1600, Last dose on 02/03/20 at 0900 1026 ($ Given - Provider: Efrain Rojas RN) 0905 ($ Given - Provider: Cathy Baker RN) 1025 ($ Given - Provider: Gladis Pacheco RN) tamsulosin (FLOMAX) capsule 0.4 mg 0.4 mg, Oral, AT BEDTIME, 365 doses, First dose on Tue02/02/19 at 2245, Last dose on Tue02/01/20 at 2100, At the same time every day after a meal. Do not crush, chew 2152 ($ Given - Provider: Chris Carter RN) 2048 ($ Given - Provider: Chris Carter RN) vancomycin (VANCOCIN) IV dose per pharmacy Does not apply, DIRECTED, Starting on Tue02/02/19 at 2212, Until Tue02/15/19 at 2010, Indication for anti-infective therapy: Suspected infection, Site of anti-infective therapy: Other, Other site of infection (free text): Sepsis Unknown Origin - Healthcare associated vancomycin HCl (VANCOCIN) 1,250 mg in 0.9% NaCl 250 mL IVPB (CANCELED) 1,250 mg, at 200 mL/hr, Intravenous, EVERY 24 HOURS, 17 doses, First dose (after last modification) on Tue02/12/19 at 1400, Last dose on Tue02/28/19 at 1400, Next vancomycin level due at 1300 on 02/15., Hold the following dose if the level is greater than 21 mcg/mL., Indication for anti-infective therapy: Documented infection, Site of anti-infective therapy: Bone/Joint 1700 ($ New Bag/Syringe - Provider: Efrain Rojas RN)2153 (Stopped - Provider: Chris Carter RN) vancomycin HCl (VANCOCIN) 1,250 mg in 0.9% NaCl 250 mL IVPB 1,250 mg, at 200 mL/hr, Intravenous, EVERY 24 HOURS, 15 doses, First dose (after last modification) on Tue02/14/19 at 1700, Last dose on Tue02/28/19 at 1700, Next vancomycin level due at 1300 on 02/15. Hold the following dose if the level is greater than 21 mcg/mL., Indication for anti-infective therapy: Documented infection, Site of anti-infective therapy: Bone/Joint 1745 ($ New Bag/Syringe - Provider: Cathy Baker RN)1747 (Current Rate - Provider: Cathy Baker RN)1900 (Stopped - Provider: Cathy Baker RN) 1735 ($ New Bag/Syringe - Provider: Eula Augustin RN)1850 (Due: Stopped - Provider: Eula Augustin RN) warfarin (COUMADIN) dose per pharmacy [facility] Other, DAILY AT 1700, 365 doses, First dose on 02/11/19 at 1700, Last dose on 02/10/20 at 1700, Call pharmacy daily for warfarin order if not already available. Do not delete or modify this order unless you are discontinuing warfarin!, Diagnosis requiring anticoagulation? chronic afib, INR GOAL: 2.0-2.5 1646 (*Reviewed - Provider: Efrain Rojas RN) 1517 (*Reviewed - Provider: Cathy Baker, RN) 1811 (*Reviewed - Provider: Gladis Pacheco, DONTAE) warfarin (COUMADIN) tablet 4 mg (COMPLETED) 4 mg, Oral, ONCE WARFARIN, 1 dose, On Tue02/14/19 at 1700, . WASTE DISPOSAL INSTRUCTIONS: P-Listed item. Special Disposal Required. . 1746 ($ Given - Provider: Cathy Baker, RN) warfarin (COUMADIN) tablet 5 mg (COMPLETED) 5 mg, Oral, ONCE WARFARIN, 1 dose, On Tue02/13/19 at 1700, . WASTE DISPOSAL INSTRUCTIONS: P-Listed item. Special Disposal Required. . 1650 ($ Given - Provider: Efrain Rojas RN) warfarin (COUMADIN) tablet 5 mg 5 mg, Oral, ONCE WARFARIN, 1 dose, On Tue02/15/19 at 1700, . WASTE DISPOSAL INSTRUCTIONS: P-Listed item. Special Disposal Required. . 1810 ($ Given - Provider: Gladis Pacheco, RN) zinc sulfate (ZINCATE) capsule 220 mg 220 mg, Oral, DAILY, First dose on 02/03/19 at 0900, Until Discontinued 1027 ($ Given - Provider: Efrain Rojas RN) 0906 ($ Given - Provider: Cathy Baker, RN) 1025 ($ Given - Provider: Gladis Pacheco, DONTAE) PRN Medication Order 02/13/2019 02/14/2019 02/15/2019 0.9% NaCl injection 10-40 mL 10-40 mL, Intracatheter, PRN, Other, PICC line flush, Starting on Tue02/12/19 at 1726, Until Tue02/15/19 at 2010, Flush each lumen of PICC with 10ml NS IVP before and after medication/solution administration for patency and blood return. Flush each lumen of PICC with 20 ml NS IVP after each infusion of blood products or lipids, and after each blood draw. 0.9% NaCl injection 10-40 mL 10-40 mL, Intracatheter, PRN, Other, PICC line flush, Starting on Tue02/13/19 at 1332, Until Tue02/15/19 at 2009, Flush each lumen of PICC with 10ml NS IVP before and after medication/solution administration for patency and blood return. Flush each lumen of PICC with 20 ml NS IVP after each infusion of blood products or lipids, and after each blood draw. 1424 ($ Given - Provider: Cathy Baker RN) acetaminophen (TYLENOL) tablet 650 mg 650 mg, Oral, EVERY 6 HOURS PRN, Fever, Mild Pain, Starting on Tue02/02/19 at 2220, Until Tue02/15/19 at 2009 baclofen (LIORESAL) tablet 10 mg 10 mg, Oral, 2 TIMES DAILY PRN, Muscle Spasms, Starting on Tue02/04/19 at 1545, Until Tue02/15/19 at 2009 benzonatate (TESSALON) capsule 200 mg 200 mg, Oral, 3 TIMES DAILY PRN, Cough, Starting on Tue02/06/19 at 1500, Until Tue02/15/19 at 2009 bisacodyl (DULCOLAX) suppository 10 mg 10 mg, Rectal, DAILY PRN, Constipation, Starting on Tue02/06/19 at 1732, Until Tue02/15/19 at 2009 dextrose IV 12.5-25 g 12.5-25 g (25-50 mL), Intravenous, PRN, Bedside Glucose less than 70 mg/dL -If NOT able to eat and/or NPO and with IV Access, Starting on Tue02/03/19 at 0958, Until Tue02/15/19 at 2009, If NOT able to eat and/or NPO and with IV Access: For Bedside Glucose 50-69 mg/dL give 25 mls D50W IVP STAT For Bedside glucose 50 mg/dL or LESS verify with a second Bedside Glucose (from a different site) and give 50 mls D50W IVP STAT Re-check and Re-treat blood glucose EVERY 10-25 minutes until blood glucose GREATER than or equal to 80 mg/dl. NOTIFY PROVIDER OF HYPOGLYCEMIC EVENT. fentaNYL (PF) (SUBLIMAZE) injection 25 mcg 25 mcg, Intravenous, EVERY 4 HOURS PRN, Severe Pain, Starting on 02/02/19 at 2217, Until Kellen 02/15/19 at 2009 glucagon (GLUCAGEN) injection 1 mg 1 mg, Intramuscular, PRN, Bedside Glucose less than 70 mg/dL - If NOT able to eat and/or NPO and withOUT IV Access, Starting on 02/03/19 at 0958, Until Kellen 02/15/19 at 2009, If NOT able to eat and/or NPO and NO IV Access: For Bedside glucose 50-69 mg/dL Give 1 mg IM or SQ For Bedside Glucose LESS than 50 mg/dl verify with a second bedside glucose (from a different site) and Give 1 mg IM or SQ Re-check and Re-treat blood glucose EVERY 10-25 minutes until blood glucose GREATER than or equal to 80 mg/dl. NOTIFY PROVIDER OF HYPOGLYCEMIC EVENT. Reconstitute vial with 1 mL of sterile water for injection for a final concentration of 1 mg/mL; shake vial gently; use immediately and discard unused portion glucose (Diabetic Use) oral gel Oral, PRN, Other, Bedside Glucose less than 70 mg/dL -If able to eat and does not have swallowing difficulties, Starting on 02/03/19 at 0958, Until Kellen 02/15/19 at 2009, If able to eat and does not have swallowing difficulties: For Bedside Glucose 50 - 69 mg/dL Give 15 grams of oral carbohydrates - 1 glucose gel (see MAR) If patient refuses glucose gel, then offer: - 4 ounces of fruit juice OR - 4 ounces non-diet soda OR - 8 ounces of fat-free milk For Bedside Glucose LESS than 50 mg/dL verify with a second Bedside Glucose (from a different site) - If pt is symptomatic, do not delay treatment If the patient is exhibiting symptoms which are not consistent with the results obtained, confirm the glucose with a STAT laboratory test. Give 30 grams of oral carbohydrates - 2 glucose gels (see MAR) If patient refuses glucose gel, then offer: - 8 ounces of fruit juice OR - 8 ounces non-diet soda OR - 16 ounces of fat-free milk Re-check and Re-treat blood glucose EVERY 10-25 minutes until blood glucose GREATER than or equal to 80 mg/dl. NOTIFY PROVIDER OF HYPOGLYCEMIC EVENT. lactulose (CHRONULAC) solution 20 g 20 g, Oral, 3 TIMES DAILY PRN, Constipation, Starting on Tue02/07/19 at 1212, Until Kellen 02/15/19 at 2009 2102 ($ Given - Provider: Chris Carter, RN) ondansetron (ZOFRAN) injection 4 mg 4 mg, Intravenous, EVERY 6 HOURS PRN, Nausea/Vomiting, Starting on Tue02/02/19 at 2217, Until Kellen 02/15/19 at 2009, Administer over 2 to 5 minutes. oxyCODONE-acetaminophen (PERCOCET) 10-325 MG tablet 1 tablet 1 tablet, Oral, EVERY 4 HOURS PRN, Moderate Pain, Starting on Tue02/04/19 at 0910, Until Tue02/15/19 at 2009 0543 ($ Given - Provider: Zbigniew Sandoval RN)1650 ($ Given - Provider: Efrain Rojas RN)2152 ($ Given - Provider: Chris Carter, RN) 0126 ($ Given - Provider: Clarice Carver RN) trimethobenzamide (TIGAN) injection 200 mg 200 mg, Intramuscular, EVERY 6 HOURS PRN, Nausea/Vomiting, Starting on Tue02/11/19 at 1335, Until Tue02/15/19 at 2009, IM use only; do not administer IV documented in this encounter Additional Health Concerns Infection Onset Date Last Indicated Resolved Time 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
--- OUTSIDE RECORDS SUMMARY | 2024-05-24 23:39 | XMS_ITS | Encounter Summary ---
Author Organization [facility] Address [address] [place] [place] [address] Care Team Providers Care Substation Operator Name Role Phone Briana Medeiros MD Primary Care Provider [phone] Reason for Visit * Auth/Cert Specialty Diagnoses / Procedures Referred By Contac t Referred To Contact Diagnoses Right hip infection Referral ID Status Reason Start Date Expiration Date Visits Re quested Visits Authorized [id number] 1 1 Encounter Details Date Type Department Care Team (Latest Contact Info) Description 02/02/2019 8:57 PM CDT - 02/15/2019 7:00 PM CDT Hospital Encounter [facility] 2 ORTHO/NEW VIS [address] [place] [address] Michelle Pratt MD [address] [place] [address] Blaire Meek MD [address] [place] [address] Poncho Cisneros MD [address] [place] [address] Lilly Jurado APRN-PAD HAND [address] [facility] [address] [place] [id number] Surgery Orthopedics Discharge Disposition: Intermediate Facility Social History Tobacco Use Types Packs/Day [...] Sign Reading Time Taken Comments Blood Pressure 136/78 02/15/2019 4:03 PM CDT Pulse 95 02/15/2019 4:03 PM CDT Temperature 37.2 ??C (98.9 ??F) 02/15/2019 4:03 PM CD T Respiratory Rate 16 02/15/2019 4:03 PM CDT Oxygen Saturation 100% 02/15/2019 4:03 PM CDT Inhaled Oxygen Concentration - - Weight 104 kg (229 lb 3.2 oz) 02/15/2019 5:24 AM CDT Height 180.3 cm (5' 11 [...] Discharge date: 02/15/2019 Admitting Physician: Lilly Jurado APRN-PAD HAND Attending Physician: Poncho Cisneros MD Discharge Physician: [...] Take 17 g by mouth once daily Pnocho Cisneros MD rifAMPin 300 MG capsule Commonly [...] 4 hours as needed vitamin D (ergocalciferol) 85679 units capsule Commonly known as: DRISDOL Take 50,000 Units by mouth every 7 days STOP taking these medications bumetanide 0.5 MG tablet Commonly known as: BUMEX ELIQUIS 5 MG tablet Generic drug: apixaban ferrous sulfate 325 (65 FE) MG tablet lidocaine 5 % patch Commonly known as: LIDODERM metoprolol succinate XL 24hr 50 MG tablet Commonly known as: TOPROL XL nystatin 918624 UNIT/GM powder Commonly known as: MYCOSTATIN Oxygen [...] 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 ??No scrubbing aroundincision. ? [place] to be removed??at [address] Alexander ?? Call [phone] to schedule the first follow-up appointment with ??Benjamin in 3 weeks ?? Any questions or [...] Each 02/15/2019 04/01/2019 vitamin D, ergocalciferol, (DRISDOL) 81762 UNITS capsuleIndications:Ot her cirrhosis of liver (HCC) [...] and capped . Pt;s Ride him to [facility]. All the belonging handed over to patient. Called report to DONTAE Caballero. Gladis Pacheco RN 02/15/2019 8:05 PM * Mila Degroot MSW - 02/15/2019 3:52 PM CDT Facility Transfer Note Level of Care: Skilled Rehab Payor Source: Medicare Facility Name: (include name of person confirming admission): [facility]: [phone] (toño) [phone] ([place]) [place] Made Aware of Special Needs (if applicable): N/A RN Call Report to: [phone], 100 meek RN RN Fax D/C Orders to: [phone] Transportation: Family Certificate of Medical Necessity rationale: not applicable Date/time of transfer: 02/15/19, TBD Accepting MD: Clay Completed and Signed [id number] (if applicable): not applicable Family/Other Notified of Transfer (name/phone): Extended Emergency Contact Information Primary Emergency Contact: Trinity Keys Address: [address] [place] [address] [place] [address] [facility] Relation: Spouse Nuclear Instructor needed? No Authorization Skilled Care: not applicable [...] the discharge summary. Yoko Montgomery OT x [phone] * Cheryl Mccoy, PharmD - 02/15/2019 2:38 [...] DIET REGULAR Labs Recent Labs Component Name 02/15/197 02/14/19 0346 02/13/19 0440 PT 18.9* 18.3* [...] results for input(s): DDIMERMGL in the last 34860 hours. Warfarin Dose History Date INR Dose [...] Diseases Consult Note Patient's Primary Care Physician: Brinaa Medeiros MD Reason for Consultation: Right total hip arthroplasty infection Referring Physcian: Lilly Jurado APRN-PAD HAND Name: José Miguel Keys Age: [age] year old 13 Hospital course Sitting up in chair Pain controlled Low-grade fever Placement in progress paragraphs Exam Vitals: 02/15/19 0524 02/15/19 0811 02/15/19 0903 02/15/19 1138 BP: 135/83 131/68 124/63 Pulse: 77 84 76 97 Resp: 18 18 17 16 Temp: 98.6 ??F (37 ??C) 99 [...] results for input(s): CDIFFTOXINAB in the last 09602 hours. No results for input(s): SEDRATE in the last 99317 hours. Recent Labs Component Name 08/15/17 0348 08/09/17 0745 08/05/17 0445 CRP 4.1* 32.0* 14.4* No results for input(s): CK in the last 71910 hours. .No results for input(s): VANCOTROUGH, VANCOPEAK, VANCSERIES in the last 93690 hours. Invalid input(s): VANCORAND Recent Labs Component [...] sed rate, C-reactive protein Fax results to [phone] Please be advised that part of this text was done using voice recognition software. Errors may havebeen missed upon review. aRysa Nevarez MD * Mila Degroot RADIO MECHANIC HELPER - 02/15/2019 12:14 PM CDT Social Work Progress Note Chart reviewed, this SW following today, work up and treatment is in progress, as per previous CM/SW notes, plan is: SNF. Pt would like to go to [facility]: [phone] (f) [phone]. SW made the referral and they are going to review for placement. SW will update once progress is made. 1551- Pt is accepted at [facility]: [phone] (f) [phone] and they can accept him today after he gets his IV vanc. Discharge Plan Disposition: SNF Transportation: Ambulance Anticipated Discharge Date: TBD Contacts: Extended Emergency Contact Information Primary Emergency Contact: Trinity Keys Address: [address] [place] [address] [place] [address] [facility] Relation: Spouse Nuclear Instructor needed? No CHRIS Clifford 02/15/2019 12:14 PM [...] Hamilton PT Ascom #[phone] * Epi Sams, EliazarD - 02/15/2019 7:54 AM CDT Vancomycin Per [...] obtain a vancomycin level this evening 02/15 xs1957. Will continue to adjust and monitor. Nicole Delgadillo, Izzy 02/15/2019 7:54 AM ADDENDUM Recent Labs Component [...] follow and adjust regimen as necessary. Epi Sams, PharmNia 02/15/2019 6:30 PM * Chris Carter RN [...] Pulse: 77 75 77 77 Resp: 15 16 19 18 Temp: 97.8 ??F (36.6 ??C) 98.6 [...] 138/70 Pulse: 97 85 78 86 Resp: Temp: 98.1 ??F (36.7 ??C) 97.7 ??F [...] found. Recent Labs Component Name 02/14/19 0258 02/13/1943902/12/1931410/10/18 1515 09/19/17 0243 09/18/17 0003 WBC 9.6 [...] displayed. Recent Labs Component Name 02/14/19 0346 02/13/1943902/12/19314 02/03/19 0106 09/06/17 1157 09/04/17 0447 SODIUM 141 142 139 - 134* - - - POTASSIUM 3.7 3.6 3.5 - 4.3 - 3.8 4.9* CHLORIDE 108* 106 105 - 101 - - - CO2 28 28 27 - 25 - 20* 27 BUN 18 17 19 - 19 - 21 11 CREATININE 1.10 0.97 0.99 - 1.22* [...] results for input(s): MAGMGDL in the last 69470 hours. Recent Labs Component Name 09/19/17 0243 [...] whenever one becomes available. Poncho Cisneros MD [facility] Hospitalist 02/14/2019 7:02 PM * Neva Ratliff RCP - 02/14/2019 2:40 PM CDT Problem: Impaired [...] results for input(s): DDIMERMGL in the last 30929 hours. Warfarin Dose History Date INR Dose [...] hip arthroplasty infection Referring Physcian: Lilly Jurado APRN-PAD HAND Name: José Miguel Keys Age: [age] year [...] results for input(s): CDIFFTOXINAB in the last 27037 hours. No results for input(s): SEDRATE in the last 74493 hours. Recent Labs Component Name 08/15/17 0348 08/09/17 0745 08/05/17 0445 CRP 4.1* 32.0* 14.4* No results for input(s): CK in the last 44670 hours. .No results for input(s): VANCOTROUGH, VANCOPEAK, VANCSERIES in the last 24086 hours. Invalid input(s): VANCORAND Recent Labs Component [...] review. Raysa Nevarez MD * Carlita Menendez, ASHWINI/SALVADOR - 02/14/2019 12:31 PM CDT Problem: Nutrient: [...] 0600 222 lb 9.6 oz (101 kg) [facility] 02/02/192124 208 lb (94.3 kg) -- 02/02/192058 208 lb (94.3 kg) Stated No new Weight/Weight change: No new weight New Meds: No nutrition related LABS: Recent Labs Component Name 02/14/19 0346 02/03/19 0106 SODIUM 141 - 134* POTASSIUM 3.7 - 4.3 CHLORIDE 108* - 101 CO2 28 - 25 BUN 18 - CREATININE 1.10 - 1.22* GLUCOSE 113* [...] results for input(s): PREALBUMIN in the last 37682 hours. No data found. Skin/Wound: incision Last [...] Goal Timeframe: Within 24 - [address]/SALVADOR 02/14/2019 12:36 PM Ascom [phone] * Christina [...] Right total hip arthroplasty infection Referring Physcian: SHAGUFTA Crooks Name: José Miguel Keys Age: [age] year old 12 Hospital course Tolerated rifampin Pain controlled awaiting placement Review of systems Denies fever chills sweats No diarrhea Exam Vitals: 02/14/19 0224 02/14/19 0624 02/14/19 0820 02/14/19 0859 BP: 145/81 114/62 Pulse: 89 79 83 97 Resp: 15 16 22 18 Temp: 97.5 ??F (36.4 ??C) 98.1 [...] results for input(s): CDIFFTOXINAB in the last 15738 hours. No results for input(s): SEDRATE in the last 29244 hours. Recent Labs Component Name 08/15/17 0348 08/09/17 0745 08/05/17 0445 CRP 4.1* 32.0* 14.4* No results for input(s): CK in the last 20314 hours. .No results for input(s): VANCOTROUGH, VANCOPEAK, VANCSERIES in the last 20668 hours. Invalid input(s): VANCORAND Recent Labs Component [...] missed upon review. Raysa Nevarez MD * Sumaya, Alberto Dhillon MD - 02/14/2019 6:30 AM CDT [facility] Orthopedic Surgery Daily Progress Note José Miguel Keys, 68 year old, male : 1950 CSN: [id number] Primary Care Physician: Briana Medeiros MD - [...] INR's please fax results to clinic ( [facility], [phone] for [facility]) ?? Keep wound clean and dry. Daily [...] week visit with Dr. Alexander ?? Call [phone] to schedule the first follow-up appointment with Dr. Alexander in 3 weeks ?? Any questions or problems please call the office , or Alberto Shell MD 02/14/2019 6:31 AM * Aurora Granados, DONTAE - 02/14/2019 6:12 AM CDT Problem: Pain/Discomfort [...] Intake/Output Summary (Last 24 hours) at 02/13/2019 1934 Last data filed at 02/13/2019 1400 Gross per 24 hour Intake 960 ml Output -- Net 960 ml No data found. Recent Labs Component Name 02/13/19 0440 02/12/19 0315 02/11/19 0242 10/10/18 1515 09/19/17 0243 09/18/17 0003 WBC 8.9 [...] interval not displayed. Recent Labs Component Name 02/13/19 0440 02/12/1931402/11/1924102/03/19 0106 09/06/17 1157 09/04/17 0447 SODIUM 142 139 137 - 134* - - - POTASSIUM 3.6 3.5 3.5 - 4.3 - 3.8 4.9* CHLORIDE 106 105 101 - 101 - - - CO2 28 27 27 - 25 - 20* 27 BUN 17 19 - 19 - 21 11 CREATININE 0.97 [...] results for input(s): MAGMGDL in the last 66558 hours. Recent Labs Component Name 09/19/17 0243 [...] q24h ?? warfarin (COUMADIN) dose per pharmacy [facility], Other, QDay 1700 ?? zinc sulfate (ZINCATE) [...] DC to facility tomorrow Poncho Cisneros MD [facility] Hospitalist 02/13/2019 7:45 PM * Efrain Rojas, RN - 02/13/2019 6:03 PM CDT Shift summary: patient up amb with walker, CHG bath done, appetite fair, PICC Line placed for IVABX, taught PICC line care, how to flush and supervisor detasseling crew ivabx . Patient thinking about taking patient with home health. demonstrated how to flush and disconnect pt from iv pump. Call light and phone within reach. * Fay Otero, RADIO MECHANIC HELPER - 02/13/2019 3:09 PM CDT Spoke with admission coordinator for [facility] who verified that the facility has a male bed available. Pt medical record faxed to [facility]. RADIO MECHANIC HELPER will continue to follow and coordinate d/c. CHRIS Herrera 02/13/2019 3:12 PM [phone] * Christina Hamilton, PT - 02/13/2019 1:23 PM CDT Attempted to see pt for PT treatment. Unable to complete visit secondary to patient having PICC line placed. Will attempt another time. Christina Hamilton, PT [phone] * Fay Otero, RADIO MECHANIC HELPER - 02/13/2019 11:37 AM CDT Spoke with admission coordinator for [facility] facility does not have a male bed available. Message left for admission coordinator for [facility] re: bed availability. RADIO MECHANIC HELPER will continue to follow and coordinate d/c. CHRIS Herrera 02/13/2019 11:43 AM [phone] * Zbigniew Sandoval RN - 02/13/2019 8:23 [...] results for input(s): DDIMERMGL in the last 23105 hours. Warfarin Dose History Date INR Dose [...] and redness of the region.He went to [facility] and workup there including CT of the right hip revealed suspected abscess for which he was transferred here for further evaluation by [facility] Orthopedics. Has history of MRSA bacteremia and epidural abscess as well. He is community dwelling living with his . Current symptoms: BM 02/08. +BM. Pain is better. Per patient he was able to stand and transfer with only minimal/standby assist. Nausea seems better. Appetite improving and taking his oral supplements as well. No shortness of breath or chest pain. No fevers or chills noted. PE: Filed Vitals: 02/12/19 0816 02/12/19 0857 02/12/19 1357 02/12/19 1714 BP: 114/51 117/71 Pulse: 92 95 92 85 Resp: Temp: 97.8 ??F (36.6 ??C) 98.4 ??F [...] will change postop day 7. MSK: DELICIA Macias. Nl molder inflated ball appreciated. No cce, no erythema of surgical site Recent Labs Component Name 02/12/1931402/11/1924102/10/19317 SODIUM 139 137 139 POTASSIUM 3.5 3.5 3.8 CHLORIDE 105 101 105 CO2 27 27 26 BUN 19 21 20 CREATININE 0.99 1.00 1.16 GLUCOSE 114* 113* 108* CALCIUM 8.7 9.0 9.0 Recent Labs Component Name 02/03/19 0106 ALBUMIN 3.1* ALT 21 AST 20 Recent Labs Component Name 02/12/1931402/11/19 02402/10/19317 WBC 9.3 10.3 10.1 HGB 7.5* 8.0* [...] wishes, and discussion with multidisciplinary care team (prototype engineer manager, RADIO MECHANIC HELPER, CSN, Therapy services, Pharmacy, and manager alliance) the current recommendation for the most appropriate discharge destination at this time is: Inpt rehab vs Home Anticipated discharge date: Possible discharge tomorrow 02/13. Needs PICC line and senior living/insurance authorization Disposition: Due to medical issues in the assessment and plan, continued hospitalization will be required. Blaire Meek MD Note is dictated utilizing voice recognition software. Unfortunately this leads to occasional typographical errors. I apologize in advance if the situation occurs. If questions occur please contact me for clarification. * Efrain Rojas, RN - 02/12/2019 4:42 PM CDT Shift summary: patient up to recliner and BSC with walker, mod assist with transfers, scheduled pain med given, appetite good family at bedside, possible discharge tomorrow to SNF call light and phone within reach. * Fay Otero, RADIO MECHANIC HELPER - 02/12/2019 3:23 PM CDT Case reviewed with RN/CM during afternoon huddle. PER huddle pt spouse requesting SNF placement at [facility] or [facility]. Message left for admission coordinators for [facility] and [facility] re: bed availability. RADIO MECHANIC HELPER will continue to follow and coordinate d/c. CHRIS Herrera 02/12/2019 3:26 PM [phone] * Maria Guadalupe Roberts RN - 02/12/2019 2:18 PM CDT Case Management Progress Note Anticipated level of care at discharge: Halfway - Skilled Facility Anticipated Discharge Date: Anticipated Discharge Date: 02/13/19 Transportation at Discharge: Family/Ambulance Comments: As documented by CM on 02/09, Spouse has chosen [facility] in [place], [place], or [facility] in [place]. Have asked Fay PEREZ to initiate referrals for tentative discharge tmrw. Attempting to reach spouse to verify this remains the discharge plan. Maria Guadalupe Roberts RN [facility] X [phone] * Cheryl Mccoy PharmD - 02/12/2019 2:10 PM CDT Warfarin per Pharmacy Protocol S/O José Miguel Nia Davalosks is on warfarin for A. Fib, h/o [...] results for input(s): DDIMERMGL in the last 74815 hours. Warfarin Dose History Date INR Dose [...] PharmD 02/12/2019 2:11 PM * Fay Otero, RADIO MECHANIC HELPER - 02/12/2019 12:24 PM CDT Case reviewed during huddle and MDR. RN/CM to f/u with pt spouse re:: SNF placement. RADIO MECHANIC HELPER will continue to follow and coordinate d/c. CHRIS Herrera 02/12/2019 12:25 PM [phone] * Christina Hamilton, PT - 02/12/2019 11:14 [...] with min a Outcome: Ongoing * Christina Hamilton PT - 02/12/2019 11:10 AM CDT Patient [...] visit. Christina Hamilton PT Ascom #[phone] * Brenden Ellis, PharmD - 02/12/2019 10:15 AM CDT Vancomycin Per Pharmacy (Day 10) 68 year old male receiving vancomycin 1500 mg IV every 24 hours for the management of sepsis 2/2 MRSA infected R total hip arthroplasty s/p wound vac and lavag. ?? Other Antibiotics: none Vitals: Height: 5' 11 (180.3 cm) (02/02/192124) Weight: 101 kg (222 lb 9.6 oz) (02/12/19 0600) Temp (24hrs) Max:98.4 ??F (36.9 ??C) Current Labs: Recent Labs Component Name 02/12/19 03102/11/19 0242 02/10/19 0318 BUN 19 21 20 CREATININE 0.99 1.00 [...] monitor and adjust as appropriate. Brenden Ellis, PharmD 02/12/2019 10:15 AM * Carlita Menendez, RD/LD - 02/12/2019 10:13 AM CDT Clinical Nutrition Patient was given education on importance of consuming consistent amount of Vit K in their diet. Written information was given using [facility] Vit K & Anticoagulant Therapy handout. Foods [...] results for input(s): DDIMERMGL in the last 81589 hours. Warfarin Dose History Date INR Dose (mg) Comments 02/11 1.0 5mg subtherapeutic Assessment Goal INR: 2.0 - 2.5. Today's INR is Subtherapeutic Risk factors for bleeding: none. Pertinent home medications: none Pertinent medications during hospitalization: none Plan 1. Warfarin dose: 5mg X 1 2. Daily INR 3. Bridging therapy with N/A Jesusita Bennett, Izzy 02/11/2019 3:22 PM * Sumaya, Alberto Dhillon [...] tub soaks. No scrubbing around incision. ?? [place] to be removed at [address] Alexander ?? Call [phone] to schedule the first follow-up appointment with [...] summary. Kristie Martinez, PT x [phone] * Constantino Gilliam, PharmD - 02/11/2019 1:44 [...] and redness of the region.He went to [facility] and workup there including CT of the right hip revealed suspected abscess for which he was transferred here for further evaluation by [facility] Orthopedics. Has history of MRSA bacteremia and [...] will change postop day 7. MSK: DELICIA Macias. Nl molder inflated ball appreciated. No cce, no erythema of surgical site Recent Labs Component Name 02/11/19 0242 02/10/19 0318 02/09/19 0230 SODIUM 137 139 137 POTASSIUM [...] wishes, and discussion with multidisciplinary care team (prototype engineer manager, RADIO MECHANIC HELPER, CSN, Therapy services, Pharmacy, and manager alliance) the current recommendation for the most appropriate [...] Care Practitioner 02/11/2019 7:54 AM * Dalia Blandon RN - 02/11/2019 5:06 AM CDT Shift [...] staff adhere to PPE protocol. * Karina Davies PT - 02/10/2019 3:47 PM CDT Physical [...] care PT Discharge Recommendations: Inpatient Rehab Karina Davies PT x [phone] * Karina Davies PT - 02/10/2019 3:34 PM CDT Physical [...] this date. Standing posture flexed, with strong molder inflated ball on the walker. Pt required v/c for feet placement. Pt transfer to the [...] Recommendations: Inpatient Rehab Karina Davies, PT x [phone] * Eula Verma RCP - 02/10/2019 3:02 PM CDT Problem: Impaired Gas Exchange Goal: Resp rate/effort will be within specified limits 02/10/2019 1504 by Eula Verma, Respiratory Care Practitioner Outcome: Ongoing Note: José Miguel continues on scheduled nebulizer tx. Lungs sound diminished this shift. Will continue to monitor and wean as able * Alberto Shell MD - 02/10/2019 11:30 AM CDT [facility] Orthopedic Surgery Daily Progress Note José Miguel Keys, 68 year old, male : 1950 CSN: [id number] Primary Care Physician: Briana Medeiros MD - [...] Labs Component Name 02/04/19 0737 02/03/19 0106 05/07/19 1515 INR 1.0 1.1 1.1 Cultures Initial [...] tub soaks. No scrubbing around incision. ?? [place] to be removed at [address] Alexander ?? Call [phone] to schedule the first follow-up appointment with [...] and redness of the region.He went to [facility] and workup there including CT of the right hip revealed suspected abscess for which he was transferred here for further evaluation by [facility] Orthopedics. Has history of MRSA bacteremia and epidural abscess as well. He is community dwelling living with his . Current symptoms: BM yesterday, incontinence noted. Pain is better. Confusion is better,answers faster as well. Nauseated still. No f/c overnight. Significantly fluid positive post op.([phone]). PE: Filed Vitals: 02/09/19 1635 02/09/19 2152 [...] approp. No Si/Hi Skin: wound c/d/i. MSK: MASANJU Bilat. Nl molder inflated ball appreciated. No cce, no erythema of surgical site Recent Labs Component Name 02/10/1931702/09/190 02/08/19 0256 SODIUM 139 137 137 POTASSIUM [...] wishes, and discussion with multidisciplinary care team (prototype engineer manager, RADIO MECHANIC HELPER, CSN, Therapy services, Pharmacy, and manager alliance) the current recommendation for the most appropriate discharge destination at this time is: Intermediate Facility (SNF) vs Home with HH Anticipated [...] Summary for today: Pain Rating and Location: 11/13 R hip LE Exercise per ARNALDO protocol [...] per spouse Sathya Cheney , PT Ascom [phone] If this is the last Physical Therapy [...] and redness of the region.He went to [facility] and workup there including CT of the right hip revealed suspected abscess for which he was transferred here for further evaluation by [facility] Orthopedics. Has history of MRSA bacteremia and [...] No Si/Hi Skin: wound c/d/i. MSK: DELICIA Colleen. Nl molder inflated ball appreciated. No cce, no erythema of surgical [...] wishes, and discussion with multidisciplinary care team (prototype engineer manager, RADIO MECHANIC HELPER, CSN, Therapy services, Pharmacy, and manager alliance) the current recommendation for the most appropriate discharge destination at this time is: Intermediate Facility (SNF) vs Home with HH Anticipated [...] behind pt. Pt becomes anxious with sitting, LOWER [place]WHA assist to reach hand back to chair, [...] prefer to be closer to home in [place] which wouldrequire SNF placement. OT Discharge Recommendations: Inpatient Rehab;Intermediate Facility If this is the last Occupational Therapy visit, this serves as the discharge summary. Autumn Graham, OT * Fay Otero, RADIO MECHANIC HELPER - 02/09/2019 3:09 PM CDT Case reviewed with RN/CM during afternoon huddle. Per huddle pt spouse requesting SNF placement at [facility] (1st choice) and [facility] (2nd choice). Per huddle pt scheduled for a procedure next Tuesday. RADIO MECHANIC HELPER will refer pt to these facilities once his closer to d/c. Fay Otero, RADIO MECHANIC HELPER [phone] * Sathya Cheney, PT - 02/09/2019 2:44 [...] level rehab. Sathya Cheney , PT Ascom [phone] If this is the last Physical Therapy [...] - 02/09/2019 2:20 PM CDT Patient from [place], lives with his . Patient s/p debridement infected R hip prosthesis. Delayed primary closure, wound vac til closure; 4-5 days. Continue iv anbx, await new cx. Patient is traditional medicaire. Max assist x2 with mobility. Eligible for skilled rehab. Andra Oneill cm, spoke to re facilities in [place] for skill rehab. requested [facility] in [facility]. Anticipate discharge next week. Back up facility, if needed, [facility]. Will inform sw Fay chen rn/cm [phone] * Fay Otero, RADIO MECHANIC HELPER - 02/09/2019 11:26 AM CDT Case reviewed during morning huddle. RN/CM to discuss d/c options with pt spouse. RADIO MECHANIC HELPER will continueto follow and coordinate d/c. CHRIS Herrera [phone] * Sathya Cheney PT - 02/09/2019 11:14 AM CDT Attempted to see patient again for physical therapy. Unable to complete visit due to patient still feeling nauseated Will attempt to see patient at a later time/date as indicated Sathya Cheney PT ascom #[phone] * Sathya Cheney PT - 02/09/2019 9:13 AM CDT Attempted to see patient for physical therapy. Unable to complete visit due to patient vomiting andnurse requesting not to see at this time. Will attempt to see patient at a later time/date as schedule. Sathya Cheney, PT ascom #[phone] * Leah Franklin RCP [...] by Daina Valverde RN Flowsheets (Taken 02/09/2019 050 by Chato Alatorre) Temp: 97.9 ??F (36.6 ??C) Pulse: 99 Resp: 18 BP: 128/65 SpO2: 98 % Note: Mr. Keys will have stable vital signs and fluid balance during my shift. Vitals signs, telemetry, and I&O's assessed. Pt assessed for edema. * Alberto Shell MD - 02/08/2019 2:04 PM CDT [facility] Orthopedic Surgery Postoperative Check José Miguel Keys, 68 year old, male : 1950 CSN: [id number] Admitted: 02/02/2019 8:57 PM Subjective Nausea/vomiting: none [...] Name 02/08/19 0256 02/07/19 0409 02/06/19 0419 BUN 20 17 17 CREATININE 1.17 1.20* 1.23* WBC 8.9 10.0 9.1 Renal: Estimated Creatinine Clearance: 68.9 mL/min (based on SCr of 1.17 mg/dL). Levels: Recent Labs Component Name 02/07/19 0409 [...] adjust dose per protocol. 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 Vitamin B12, zinc and vitamin C supplements [...] Pain affecting intake: No Estimated Needs: KCAL: 3027-5010(20-25 kcal/kg bw) Protein (g): 94-117(1.2-1.5 gm/kg iw) [...] results for input(s): PREALBUMIN in the last 28580 hours. No data found. PERTINENT MEDICATIONS FOR [...] Timeframe: Within 24 - 72 hours Deann Emerson, ASHWINI/SALVADOR 02/08/2019 12:41 PM Ascom [phone] * Fay Otero, RADIO MECHANIC HELPER - 02/08/2019 11:16 AM CDT Case reviewed during morning huddle. Pt currently in OR today for I&D Right hip, possible component exchange, possible revision arthroplasty. RADIO MECHANIC HELPER will continue to follow and assist with [...] Will continue to follow. Thank you. LASHANDA Thurman/L Ascom: [phone] * Nico Yun, PT - 02/08/2019 8:33 AM CDT Attempted to see patient for physical therapy. Spoke to RN Anthony, who stated patient had increasepain through out [...] and redness of the region.He went to [facility] and workup there including CT of the right hip revealed suspected abscess for which he was transferred here for further evaluation by [facility] Orthopedics. Has history of MRSA bacteremia and [...] senescent changes. No rashes, petechia, purpura. MSK: FRANSANJU Bilat. Nl molder inflated ball appreciated. Recent Labs Component Name 02/08/19 0256 02/07/19 04002/06/19 0419 SODIUM 137 135* 136 POTASSIUM 3.8 [...] wishes, and discussion with multidisciplinary care team (prototype engineer manager, RADIO MECHANIC HELPER, CSN, Therapy services, Pharmacy, and manager alliance) the current recommendation for the most appropriate discharge destination at this time is: Intermediate Facility (SNF) vs Home with HH Anticipated [...] from the original note were not included. [facility] Orthopedic Surgery Daily Progress Note 02/08/2019 José Miguel Keys, 68 year old, male : 1950 CSN: [id number] - Admission Date/Time: 02/02/2019 8:57 PM -Today's [...] Procedure Component Value - Date/Time CULTURE ANAEROBE [[id number]] (Normal) Collected: 02/04/19 1129 Lab Status: Preliminary result Specimen: Micro from Hip Updated: 02/06/19 0634 Culture Culture in progress Narrative: Surgical Description: Right Hip CULTURE WOUND+GRAM STAIN [[id number]] (Abnormal) (Susceptibility) Collected: 02/04/191128 Lab Status: Final [...] Susceptible 1 ug/mL UMESH Final CULTURE ANAEROBE [[id number]] (Normal) Collected: 02/04/191128 Lab Status: Preliminary result Specimen: Micro from Hip Updated: 02/06/19 0634 Culture Culture in progress Narrative: Surgical Description: Right Hip CULTURE TISSUE+GRAM STAIN [[id number]] (Abnormal) (Susceptibility) Collected: 02/04/191128 Lab Status: Final [...] Susceptible 1 ug/mL UMESH Final CULTURE BLOOD [[id number]] Collected: 02/02/192237 Lab Status: Final result Specimen: Blood Peripheral Updated: 02/08/19230 Culture No growth day 5 CULTURE BLOOD [[id number]] Collected: 02/02/192237 Lab Status: Final result Specimen: [...] mg by mouth once daily nystatin (MYCOSTATIN) 483574 UNIT/GM powder APPLY TO AFFECTED AREA TWICE [...] mouth once daily vitamin D, ergocalciferol, (DRISDOL) 98325 UNITS capsule Take 50,000 Units by mouth [...] may change. Sathya Cheney , PT Ascom [phone] If this is the last Physical Therapy visit, this serves as the discharge summary. * Sathya Cheney, PT - 02/07/2019 2:30 PM CDT Nursing [...] living situation Sathya Cheney , PT Ascom [phone] If this is the last Physical Therapy [...] appropriate discharge plan. Maria Guadalupe Roberts RN [facility] X [phone] * Fay Otero RADIO MECHANIC HELPER - 02/07/2019 11:57 AM CDT Pt scheduled for OR on 02/08/19. PER rounds pt may need some level of rehab. RADIO MECHANIC HELPER will continue to follow and coordinate d/c. [...] surgical procedure Sathya Cheney , PT Ascom [phone] If this is the last Physical Therapy [...] discharge summary. MARIA DEL CARMEN Loving, OTR/L [phone] * Alberto Shell MD - 02/07/2019 9:41 AM CDT [facility] Orthopedic Surgery Daily Progress Note José Miguel Keys, 68 year old, male : 1950 CSN: [id number] Primary Care Physician: Briana Medeiros MD - [...] and redness of the region.He went to [facility] and workup there including CT of the right hip revealed suspected abscess for which he was transferred here for further evaluation by [facility] Orthopedics. Has history of MRSA bacteremia and [...] Pulse: 77 96 100 89 Resp: 16 20 Temp: 97.6 ??F (36.4 ??C) 99 ??F (37.2 ??C) 98 ??F (36.7 ??C) TempSrc: Oral Axillary Oral SpO2: 98% 96% 98% 98% Weight: Height: I/O/T/U: 3358/1075/2283/[id number]. Gen:ASA, mild distress. Does not appear in pain. Oriented to self, month HEENT: NCAT CV: RRR, No m/g/r, no ectopy Carol: No adventitial sounds or wheezes, basilar crackles improved with cough Abd: benign Neuro: nonfocal; proprioception, gait not tested. Reflexes intact Psych: approp. No Si/Hi Skin: nl, senescent changes. No rashes, petechia, purpura. MSK: DELICIA Bilbipin. Nl molder inflated ball appreciated. Recent Labs Component Name 02/07/1940802/06/1941802/05/19 0238 SODIUM 135* 136 136 POTASSIUM 4.3 4.7 4.2 CHLORIDE 104 106 107 CO2 23 23 22* BUN 17 17 20 CREATININE 1.20* 1.23* 1.24* GLUCOSE 92 110* 118* CALCIUM 9.0 8.8 8.6 Recent Labs Component Name 02/03/19 0106 ALBUMIN 3.1* ALT 21 AST 20 Recent Labs Component Name 02/07/1940802/06/1941802/05/19 0238 WBC 10.0 9.1 10.6 HGB 8.0* [...] wishes, and discussion with multidisciplinary care team (prototype engineer manager, RADIO MECHANIC HELPER, CSN, Therapy services, Pharmacy, and manager alliance) the current recommendation for the most appropriate discharge destination at this time is: Intermediate Facility (SNF) Anticipated discharge date: TBD Disposition: [...] on cefepime. Since cultures have grown only MRSA,consider stopping cefepime. Will continue to monitor and will adjust regimen if necessary. Bryanna Jc, PharmD * Judy Rondon T - 02/07/2019 6:13 AM CDT Pt A&Ox4. [...] Judy Rondon 02/07/2019 6:14 AM * Caridad Bernstein RN - 02/06/2019 7:09 PM CDT Pt [...] returns home Sathya Cheney , PT Ascom [phone] If this is the last Physical Therapy [...] living situation Sathya Cheney , PT Ascom [phone] If this is the last Physical Therapy visit, this serves as the discharge summary. * Osorio Pineda RCP - 02/06/2019 4:03 PM CDT Mr. Keys will remain on respiratory tx's as ordered. He is on room air, tolerating well. He has a productive cough. RT will continue to monitor. Osorio Pineda, Respiratory Care Practitioner 02/06/20194:05 PM * Sathya [...] living situation Sathya Cheney , PT Ascom [phone] If this is the last Physical Therapy visit, this serves as the discharge summary. * Sathya Cheney PT - 02/06/2019 3:10 PM CDT Problem: [...] with min a Outcome: Ongoing * Tammy Cardona OT - 02/06/2019 12:21 PM CDT Occupational Therapy Initial Evaluation OT orders received. Chart reviewed for diagnosis and medical systems review. Nursing consented for OT. Patient consented to participate in therapy. Admission History: 68 y/o male admitted with infected R ARNALDO. Pt s/p R hip I&D and wound vac application on 02/04/19. Tentative plan for return to OR on Precautions: ANDREW SAVAGE Past Medical History: Diagnosis Date ??? Actinic [...] Chief Complaint: Right hip pain swelling Insurance: Medicare/[employer] Family Support (name and phone): Extended Emergency Contact Information Primary Emergency Contact: Trinity Keys Address: [address] [place] [address] [place] [address] [facility] Mobile Relation: Spouse Nuclear Instructor needed? No Anticipated Discharge Date: 02/15/19 Anticipated level of care at discharge: Unknown SNF vs HHC Prior Level of Functioning: dependent on spouse as caregiver Equipment at Home: Equipment At Home: Commode-Bedside;Walker-2 Wheeled;Walker-4 Wheeled with Seat;Wheelchair-Standard Additional Equipment needed at home (does not have at home now): PCP: Waldemar Pharmacy benefit: Yes Discharge Medication Needs: SW Referral: Yes, Fay SUAZOW aware/following Transportation home: tbd Transportation to MD appointments: Transportation to Appointments: [facility] recommended and order obtained: If needed at discharge will need order entered in [facility] If patient requires HHC at discharge, he/she requests: patient choice Comments: s/p right hip irrigation and debridement, placement of antibiotic beads, and wound vacuumapplication , IV abts, pt/ot, pain control. BNA: 11 AUTOMOTIVE QUALITY ENGINEER: 7 Will continue to follow. For any questions or needs please contact: Bleach Chlorinator Name/Phone number: Maria Guadalupe Roberts RN [facility] X [phone], If this is the last mattress spring encasercatering manager this note serves as discharge summary * Fay Otero MSW - 02/06/2019 11:33 AM CDT Case reviewed during MDR rounds. Pt scheduled for OR on 02/08/19. PER rounds pt may need some level of rehab. RADIO MECHANIC HELPER will continue to follow and coordinate d/c. * Blaire Meek MD - 02/06/2019 7:20 AM CDT 02/06/2019 7:20 AM Admitted: 02/02/2019 8:57 PM HD: 4 CC: Right hip pain Summary:??68 year old??white male with hx CAD, atrial fibrillation, prior DVT, COPD, cirrhosis, OSAwho presents with 1 week of right hip pain with associated swelling and redness of the region.He went to [facility] and workup there including CT of the right hip revealed suspected abscess for which he was transferred here for further evaluation by [facility] Orthopedics. Has history of MRSA bacteremia and [...] 110/70 Pulse: 94 94 95 78 Resp: 18 22 Temp: 98 ??F (36.7 ??C) 98.3 ??F [...] rashes, petechia, purpura. MSK: DELICIA Bilat. Nl molder inflated ball appreciated. Recent Labs Component Name 02/06/19 04102/05/198 02/04/19 0234 SODIUM 136 136 135* POTASSIUM 4.7 4.2 3.7 CHLORIDE 106 107 106 CO2 23 22* 21* BUN 17 20 21 CREATININE 1.23* 1.24* 1.13 GLUCOSE 110* 118* 114* CALCIUM 8.8 8.6 8.6 Recent Labs Component Name 02/03/19 0106 ALBUMIN 3.1* ALT 21 AST 20 Recent Labs Component Name 02/06/1941802/05/19 0238 02/04/19 0737 WBC 9.1 10.6 10.6 [...] wishes, and discussion with multidisciplinary care team (prototype engineer manager, RADIO MECHANIC HELPER, CSN, Therapy services, Pharmacy, and manager alliance) the current recommendation for the most appropriate discharge destination at this time is: Intermediate Facility (SNF) Anticipated discharge date: TBD Disposition: Due to medical issues in the assessment and plan, continued hospitalization will be required. Blaire Meek MD Note is dictated utilizing voice recognition software. Unfortunately this leads to occasional typographical errors. I apologize in advance if the situation occurs. If questions occur please contact me for clarification. * Larry Alexander MD - 02/06/2019 6:39 AM CDT [facility] Orthopedic Surgery Daily Progress Note José Miguel Keys, 68 year old, male : 1950 CSN: [id number] Primary Care Physician: Briana Medeiros MD - [...] Admit date: 02/02/2019 Admitting Physician: Lilly Jurado APRN-PAD HAND Attending Physician: Michelle Pratt MD IP/Observation: Inpatient [...] vision loss, dizziness, dysuria. He went to [facility] and workup thereincluding CT of the right hip revealed suspected abscess for which he was transferred here for further evaluation by [facility] Orthopedics. The patient was given IV vanc and cefepime and pain meds and transferred here for evaluation by [facility] Orthopedics. Of note the patient had multiple [...] BY ME. Labs: Recent Labs Component Name 02/05/198 02/04/19 0737 02/03/19 0106 10/10/18 1515 09/19/17 [...] 0.05 - - Recent Labs Component Name 02/05/1923702/04/1923302/03/19 0106 SODIUM 136 135* 134* POTASSIUM 4.2 [...] results for input(s): SEDRATE in the last 78238 hours. Recent Labs Component Name 08/15/17 0348 08/09/17 0745 08/05/17 0445 CRP 4.1* 32.0* 14.4* No results for input(s): TROPONIN in the last 82172 hours. No results for input(s): DDIMER in the last 45521 hours. Recent Labs Component Name 07/24/17 0508 [...] any specific number. He was seen at [facility] yesterday and found to be tachycardic and so was started on broad spectrum antibiotics. They also obtained a pelvis xray and CT of right femur He notably has had bilateral ARNALDO performed with the right performed in 2005 and the left in 2010. No complaints on the left ARNALDO. His primary surgeon has since moved to [place] according to the patient. Dr. Amos at [facility] did not feel comfortable managing this patient. The patient has prior history of MRSA with an epidural abscess treated surgically 2017 at [facility]. He also has afib for which he is on xarelto and a history of a MN. He has VALENTINA and wears a CPAP [...] min a Outcome: Ongoing * Jonny Reynolds, [facility] - 02/05/2019 8:55 AM CDT Vancomycin Per [...] Reynolds RPH 02/06/2019 7:30 AM * Jason Blackbrun MD - 02/05/2019 7:25 AM CDT Orthopedic [...] Procedure Component Value - Date/Time CULTURE ANAEROBE [[id number]] Collected: 02/04/191128 Lab Status: In process Specimen: Micro from Hip Updated: 02/04/19 1208 CULTURE WOUND+GRAM STAIN [[id number]] Collected: 02/04/191128 Lab Status: Preliminary result Specimen: Micro from Hip Updated: 02/04/192226 Gram Stain Heavy Polymorphonuclear cells Moderate Red blood cells No organisms seen Narrative: Surgical Description: Right Hip CULTURE ANAEROBE [[id number]] Collected: 02/04/191128 Lab Status: In process Specimen: Micro from Hip Updated: 02/04/19 1208 CULTURE TISSUE+GRAM STAIN [[id number]] Collected: 02/04/191128 Lab Status: Preliminary result Specimen: Micro from Hip Updated: 02/04/192237 Gram Stain Moderate Polymorphonuclear cells Heavy Red blood cells No organisms seen Narrative: Surgical Description: Right Hip CULTURE BLOOD [[id number]] Collected: 02/02/192237 Lab Status: Preliminary result Specimen: Blood Peripheral Updated: 02/05/19 0230 Culture No growth CULTURE BLOOD [[id number]] Collected: 02/02/192237 Lab Status: Preliminary result Specimen: [...] pain med is needed. * Jonny Reynolds, [facility] - 02/04/2019 2:42 PM CDT Vancomycin Per [...] Admit date: 02/02/2019 Admitting Physician: Lilly Jurado APRN-PAD HAND Attending Physician: Michelle Pratt MD IP/Observation: Inpatient PCP: Briana Medeiros MD ASSESSMENT AND PLAN: Sepsis POA due to Infected right ARNALDO Plan is for right hip irrigation and debridement, placement of antibiotic beads, wound VAC application on February 04--> saw him after the procedure Revised cardiac index score: 6.0 %: 30-day risk of , MN, or cardiac arrest EKG no new changes, [...] vision loss, dizziness, dysuria. He went to [facility] and workup thereincluding CT of the right hip revealed suspected abscess for which he was transferred here for further evaluation by [facility] Orthopedics. The patient was given IV vanc and cefepime and pain meds and transferred here for evaluation by [facility] Orthopedics. Of note the patient had multiple [...] results for input(s): SEDRATE in the last 03029 hours. Recent Labs Component Name 08/15/17 0348 08/09/17 0745 08/05/17 0445 CRP 4.1* 32.0* 14.4* No results for input(s): TROPONIN in the last 82316 hours. No results for input(s): DDIMER in the last 54960 hours. Recent Labs Component Name 07/24/17 0508 [...] Procedure Component Value - Date/Time CULTURE BLOOD [[id number]] Collected: 02/02/198 Lab Status: Preliminary result Specimen: Blood Peripheral Updated: 02/04/19 0230 Culture No growth 24 hours CULTURE BLOOD [[id number]] Collected: 02/02/19 2238 Lab Status: Preliminary result Specimen: Blood Peripheral Updated: 02/04/19 0230 Culture No growth 24 hours Physical Exam General appearance: Awake, alert, in no distress. He is pleasant and cooperative with examination. Right lower extremity: intact EHL/FHL/TA/GS, Sensation: intact to light touch distally, Warm and well perfused. TTP at the right hip. Decreased ROM. Assessment/Plan 68 year old male s/p 2006 OSH [...] by mouth once daily ??? nystatin (MYCOSTATIN) 877310 UNIT/GM powder APPLY TO AFFECTED AREA TWICE [...] once daily ??? vitamin D, ergocalciferol, (DRISDOL) 21453 UNITS capsule Take 50,000 Units by mouth [...] touch and edematous. Voiding perurinal. NPO since AK for surgery today. CHG skin wash done. [...] Admit date: 02/02/2019 Admitting Physician: Lilly Jurado APRN-JEANNIE Attending Physician: Michelle Pratt MD IP/Observation: Inpatient PCP: Briana Medeiros MD ASSESSMENT AND PLAN: Sepsis POA due to Infected right ANRALDO Plan is for right hip irrigation and debridement, placement of antibiotic beads, wound VAC application on February 04 Revised cardiac index score: 6.0 %: 30-day risk of , MN, or cardiac arrest EKG no new changes, [...] vision loss, dizziness, dysuria. He went to [facility] and workup thereincluding CT of the right hip revealed suspected abscess for which he was transferred here for further evaluation by [facility] Orthopedics. The patient was given IV vanc and cefepime and pain meds and transferred here for evaluation by [facility] Orthopedics. Of note the patient had multiple [...] - Recent Labs Component Name 02/04/19 0234 02/03/1910509/19/17 0243 SODIUM 135* 134* - POTASSIUM 3.7 [...] results for input(s): SEDRATE in the last 10240 hours. Recent Labs Component Name 08/15/17 0348 08/09/17 0745 08/05/17 0445 CRP 4.1* 32.0* 14.4* No results for input(s): TROPONIN in the last 54939 hours. No results for input(s): DDIMER in the last 42868 hours. Recent Labs Component Name 07/24/17 0508 [...] Michelle Pratt MD Hospitalist * Jonny Reynolds, [facility] - 02/03/2019 3:51 AM CDT Vancomycin Dosing Protocol José Miguel Keys is a 68 year old male on receiving Vancomcyin for Sepsis (Goal Tr 15-20) Patient weight is Wt 94.3 kg (208 lb) Recent Labs Component Name 02/03/19 010 CREATININE 1.22* estimated Creatinine Clearance = Estimated Creatinine Clearance: 66.1 mL/min (A) (based on SCr of 1.22 mg/dL (H)). Recent Labs Component Name 02/03/19105 WBC 14.2* Last Temperature = Temp: 99 [...] vision loss, dizziness, dysuria. He went to [facility] and workup thereincluding CT of the right hip revealed suspected abscess for which he was transferred here for further evaluation by [facility] Orthopedics. The patient was given IV vanc and cefepime and pain meds and transferred here for evaluation by [facility] Orthopedics. Of note the patient had multiple [...] by mouth once daily ??? nystatin (MYCOSTATIN) 644813 UNIT/GM powder APPLY TO AFFECTED AREA TWICE [...] once daily ??? vitamin D, ergocalciferol, (DRISDOL) 19194 UNITS capsule Take 50,000 Units by mouth [...] -- 87 18 99 % -- -- 02/02/19 2324 -- -- -- 82 18 -- -- -- 02/02/19 2134 128/67 (!) 101.9 ??F (38.8 ??C) Oral 87 18 96 % -- -- 02/02/195 -- -- -- -- -- -- 5' 11 208 lb 02/02/192058 -- -- Oral -- -- -- 5' [...] hip arthroplasty infection Referring Physcian: Lilly Jurado APRN-PAD HAND Name: José Miguel Keys Age: [age] year old 8 The patient is a 68 y/o man with h/o MRSA sepsis treated at [facility] last year, complicated with epidural abscess. He was eloina n lTACh several months. Patient presented with right hip pain, subjective fever,no weight loss. He was taken to surgery and underwent I&D on February 04 5. Intra-operative cultures were positive for MRSA. He [...] BP: 114/51 Pulse: 92 95 92 Resp: Temp: 97.8 ??F (36.6 ??C) SpO2: 97% [...] once warfarin Data Recent Labs Component Name 02/12/19 0315 02/11/19 0242 02/10/19 0318 WBC 9.3 10.3 10.1 HGB 7.5* 8.0* 7.9* HCT 26.0* 26.4* 26.1* PLTCOUNT 270 277 260 Recent Labs Component Name 02/12/19 0315 02/11/19 0242 02/10/19 0318 SODIUM 139 137 139 POTASSIUM 3.5 3.5 [...] results for input(s): CDIFFTOXINAB in the last 72300 hours. No results for input(s): SEDRATE in the last 58857 hours. Recent Labs Component Name 08/15/17 0348 08/09/17 0745 08/05/17 0445 CRP 4.1* 32.0* 14.4* No results for input(s): CK in the last 12667 hours. .No results for input(s): VANCOTROUGH, VANCOPEAK, VANCSERIES in the last 67754 hours. Invalid input(s): VANCORAND Recent Labs Component [...] CDTAssociated Order(s): IP CONSULT TO PASTORAL CARE Newspaper Distributor Supervisor responded to consult for prayer by visiting with Pt and family and offering prayer and spiritual care support. * Larry Alexander MD - 02/03/2019 5:33 AM CDTAssociated Order(s): IP CONSULT TO ORTHOPEDIC SURGERY Orthopaedic Surgery Consult Note José Miguel Keys 1950 [id number] K Ney Medeiros MD Date of service: [...] any specific number. He was seen at [facility] yesterday and found to be tachycardic and so was started on broad spectrum antibiotics. They also obtained a pelvis xray and CT of right femur He notably has had bilateral ARNALDO performed with the right performed in 2005 and the left in 2010. No complaints on the left ARNALDO. His primary surgeon has since moved to [place] according to the patient. Dr. Amos at [facility] did not feel comfortable managing this patient. The patient has prior history of MRSA with an epidural abscess treated surgically 2017 at [facility]. He also has afib for which he is on xarelto and a history of a MN. 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 nystatin (MYCOSTATIN) 504619 UNIT/GM powder APPLY TO AFFECTED AREA TWICE [...] once daily ??? vitamin D, ergocalciferol, (DRISDOL) 55445 UNITS capsule Take 50,000 Units by mouth [...] hip scar Distal DF/PF ankle/toesR LE + [facility] SLR Xrays - R femur/hip and CT [...] cultures and intraoperative a ppearance, NPO at wa, hold eliquis, pain control, abx per ID documented in this encounter OR Notes * Operative - Larry Alexander MD - 02/08/2019 3:01 PM CDT [facility] N[facility]ED [facility] Operative Report PATIENT NAME: JOSÉ MIGUEL KEYS MR#: [id number] DATE OF : 1950 CSN: [id number] DATE OF ADMISSION: 02/02/2019 ROOM#: [facility] INTRAOP DATE OF OPERATION: 02/08/2019 PREOPERATIVE DIAGNOSIS: [...] complex surgical wound. SURGEON: Frandy Alexander M.D. QUALITY CONTROL INSPECTOR HEADING: Alberto Wakefield MD. ANESTHESIA: General. INDICATIONS FOR PROCEDURE: The patient is a 68-year-old man, who has had bilateral hip arthroplasties by another surgeon, who became infected and was transferred to [facility] for a tertiary level of care. He [...] ALEXANDER M.D. DICTATED FOR: PERRY/GURWINDER JOB ID: [id number] Operative Report * Brief Op Note - Alberto Shell MD - 02/08/2019 11:51 AM CDT Brief Op Note Procedure: REVISION HIP ARTHROPLASTY BOTH COMPONENT, EXCISION BURSA (BURSECTOMY) TROCHANTERIC/HIP, CLOSURE PRIMARY DELAYED/SECONDARY (ANY AREA) Patient Name: José Miguel Keys Date of Service: 02/08/2019 Pre-Op Diagnosis: Infected Right ARNALDO, cultures positive for MRSA Post-Op Diagnosis: same Surgeon(s) and Role: * Larry Alexander MD - Primary Guest Services Manager(s): Alberto Shell MD Anesthesia Type: general Complications: none Findings: Well fixed femoral stem EBL: 400 mL Urine Output : 250 mL IV Fluid Intake: Please see anesthesia notes Drains: GJ Tube Percutaneous Endoscopic Gastrostomy Abdomen;Left (Active) Specimen(s): none Alberto Shell MD * Operative - Larry Alexander MD - 02/04/2019 12:19 PM CDT FORMERLY NAMED [facility] Operative Report PATIENT NAME: JOSÉ MIGUEL KEYS MR#: [id number] DATE OF : 1950 CSN: [id number] DATE OF ADMISSION: 02/02/2019 ROOM#: [id number] DATE OF OPERATION: 02/04/2019 PREOPERATIVE DIAGNOSIS: Infected right total hip arthroplasty. POSTOPERATIVE DIAGNOSIS: Infected right total hip arthroplasty. PROCEDURES: 1. Irrigation and debridement with arthrotomy, infected right hip Arthroplasty. 2. Irrigation and debridement of infected right hip trochanteric bursa 2. Wound VAC application, right hip. SURGEON: Frandy Alexander M.D. QUALITY CONTROL INSPECTOR HEADING: Jason Blackburn MD. ANESTHESIA: General. INDICATION FOR [...] was present for the entire case. NAME: LEONARDO KEYSNIE Nia DICTATOR: FRANDY ALEXANDER M.D. DICTATED FOR: PERRY/GURWINDER JOB ID: [id number] Operative Report * Brief Op Note - Jason Blackburn MD - 02/04/2019 11:56 AM CDT Brief Op Note Procedure: RIGHT HIP IRRIGATION AND DEBRIDEMENT, WOUND VAC PLACEMENT Patient Name: José Miguel Keys Date of Service: 02/04/2019 Pre-Op Diagnosis: right infected ARNALDO Post-Op Diagnosis: same Surgeon(s) and Role: * Larry Alexander MD - Primary Guest Services Manager(s): Jason Blackburn MD Anesthesia Type: general Complications: none Findings: Gross purulence with deep tracks. EBL: minimal blood loss Drains: GJ Tube Percutaneous Endoscopic Gastrostomy Abdomen;Left (Active) Specimen(s): tissue and fluid cultures Jason Blackburn MD documented in this encounter Plan of Treatment Upcoming Encounters Date Type Department Care Team (Late st Contact Info) Description 07/09/2024 12:30 PM ASSISTANT GM OF CONTENT & DELIVERY Office Visit [facility] - GI [address] [place] [address], [facility] [place] [phone] Twin Miller MD [address] [place] [address] [place] [address] 09/19/2024 2:00 PM CDT Office Visit [facility] - Orthopedic Surgery [facility] [place] [address] Larry lAexander MD [address] [facility] [address] [place] [address] Scheduled Orders Name Type Priority Associated Diagnoses [...] NOCTURNAL 02 Routine 02/09/2019 12:01 AM CDT [place] SECD CLOS SURG WND EXTEN/COMPLIC 02/08/2019 10:34 AM CDT Diagnosis unknown Special Needs #### 004 ### / NEEDS OEC C-ARM, OLD SHAHEEN TABLE / NEEDS WOUND VAC SUPPLIES--ITEMS KEPT IN O.R. SUPPLY ROOM; NEEDS WOUND VAC MACHINE FROM PATIENT'S ROOM SENT TO SURGERY WITH PATIENT--02/06 KW / NEEDS OTTO AND NEPHEW--REP. NOTIFIED BY SURGEON PER RESI DENT (DR. Laura SHELL)--02/06 KW EXCISION BURSA (BURSECTOMY) TROCHANTERIC/HIP 02/08/2019 10:34 AM CDT Diagnosis unknown Special Needs #### 004 ### / NEEDS OEC C-ARM, OLD SHAHEEN TABLE / NEEDS WOUND VAC SUPPLIES--ITEMS KEPT IN O.R. SUPPLY ROOM; NEEDS WOUND VAC MACHINE FROM PATIENT'S ROOM SENT TO SURGERY WITH PATIENT--02/06 KW / NEEDS OTTO AND NEPHEW--REP. NOTIFIED BY SURGEON PER VARSHA RODRIGUEZ (DR. Laura SHELL)--02/06 KW ARTHROPLASTY TOTAL HIP REVISION 02/08/2019 10:34 AM CDT Diagnosis unknown Special Needs #### 004 ### / NEEDS OEC C-ARM, OLD SHAHEEN TABLE / NEEDS WOUND VAC SUPPLIES--ITEMS KEPT [...] CDT Diagnosis unknown CULTURE ANAEROBE STAT 02/04/2019 11:29 AM CDT Diagnosis unknown CULTURE TISSUE+GRAM STAIN STAT 02/04/2019 11:29 AM CDT Diagnosis unknown CULTURE ANAEROBE STAT 02/04/2019 11:29 AM CDT Diagnosis unknown WY NEG PRESS WND TX PER SESS; TOT SURF </= 50 SQ CM 02/04/2019 10:12 AM CDT Special Needs Shaheen Table, cement with gentamicinC Arm [facility] [phone] W[place] INCIS/DRAIN PELVIS/HIP,DEEP ABSCESS 02/04/2019 10:12 AM CDT Special Needs Shaheen Table, cement with gentamicinC Arm RESIDENT- Jason [phone] GLUCOSE - POINT OF CARE Routine 02/04/2019 [...] PM CDT LACTIC ACID BLOOD STAT 02/02/2019 10:38 PM CDT HOME CPAP/BIPAP FOR HOSP USE: NOCTURNAL 02 Routine 02/02/2019 10:08 PM CDT documented in this encounter Results * CARDIAC RHYTHM STRIP ORDER (02/27/2019 12:56 AM CDT) Narrative 02/27/2019 12:56 AM CDT Ordered by an unspecified provider. Scanned Document CARDIAC SERVICES ORD ERABLES * VANCOMYCIN LEVEL TROUGH (02/15/2019 4:50 PM CDT) Vancomycin Trough 16.5 10.0 - 20.0 ug/mL 02/15/2019 5:16 PM CDT [facility] Blood BLOOD SPECIMEN / Unknown Venipuncture / Unknown 02/15/2019 4:50 PM CDT 02/15/2019 4:55 PM CDT Poncho Cisneros MD LAB - CHEMISTRY ROYCE KLINE [facility] [address] [place] [address] * (ABNORMAL) PT-INR (02/15/2019 3:07 AM CDT) PT 18.9(H) 9.5 - 11.6 sec 02/15/2019 4:09 AM CDT [facility] INR 1.9(H) 0.9 - 1.1 02/15/2019 4:09 AM [facility] Blood BLOOD SPECIMEN / Unknown Lab Venipuncture / Unknown 02/15/2019 3:07 AM CDT 02/15/2019 3:51 AM CDT [facility] - 02/15/2019 4:09 AM CDT Conventional Warfarin Anticoagulant Therapy: INR Reference Range: ??2.0-3.0 Intensive Warfarin Anticoagulant Therapy: INR Reference Range: ? 2.5-3.5 Blaire Meek MD LAB - COAGULATION OR DERABLES [facility] [address] [place], [place] [id number] * (ABNORMAL) BASIC METABOLIC PANEL (CALCIUM TOTAL) (02/15/2019 3:07 AM CDT) Glucose 98 74 - 106 mg/dL 02/15/2019 4:27 AM [facility] Sodium 141 136 - 145 mmol/L 02/15/2019 4:27 AM [facility] Potassium 3.7 3.5 - 5.1 mmol/L 02/15/2019 4:27 AM [facility] Chloride 106 98 - 107 mmol/L 02/15/2019 4:27 AM [facility] CO2 28 23 - 31 mmol/L 02/15/2019 4:27 AM [facility] Calcium 8.6 8.4 - 10.2 mg/dL 02/15/2019 4:27 AM [facility] Anion Gap 7(L) 8 - 16 mmol/L 02/15/2019 4:27 AM [facility] BUN 17 8.4 - 25.7 mg/dL 02/15/2019 4:27 AM [facility] Creatinine 1.02 0.73 - 1.18 mg/dL 02/15/2019 4:27 AM [facility] eGFR by MDRD >60 mL/min/1.7 3m2 02/15/2019 4:27 AM [facility] eGFR by MDRD >60 mL/min/1.7 3m2 02/15/2019 4:27 AM [facility] Blood BLOOD SPECIMEN / Unknown Lab Venipuncture / Unknown 02/15/2019 3:07 AM CDT 02/15/2019 3:51 AM CDT Blaire Meek MD LAB - CHEMISTRY ROYCE KLINE [facility] [address] [place] [address] * (ABNORMAL) CBC W AUTO DIFFERENTIAL (02/15/2019 3:07 AM CDT) WBC 8.5 4.4 - 10.7 x10E9/L 02/15/2019 4:05 AM CDT [facility] WBC Corrected 02/15/2019 4:05 AM CDT [facility] RBC 2.74(L) 3.80 - 5.40 x10E12/L 02/15/2019 4:05 AM CDT [facility] Hemoglobin 7.4(L) 12.0 - 17.6 gm/dL 02/15/2019 4:[facility] Hematocrit 25.0(L) 35.2 - 51.7 % 02/15/2019 4:05 [facility] MCV 91.2 80.7 - 98.3 fl 02/15/2019 4:05 AM CDT [facility] MCH 27.0 26.7 - 34.0 pg 02/15/2019 4:05 AM CDT [facility] MCHC 29.6(L) 30.8 - 35.9 gm/dL 02/15/2019 4:05 AM CDT [facility] Platelet Count 284 153 - 416 x10E9/L 02/15/2019 4:05 [facility] RDW-CV 17.0(H) 12.1 - 14.9 % 02/15/2019 4:05 AM CDT [facility] MPV 11.5 9.4 - 12.9 fl 02/15/2019 4:05 AM CDT [facility] Neutrophils % 72.9 44.0 - 73.0 % 02/15/2019 4:05 AM CDT [facility] Lymphocytes % 8.7(L) 20.0 - 43.0 % 02/15/2019 4:05 AM CDT [facility] Monocytes % 8.0 5.0 - 13.0 % 02/15/2019 4:05 AM [facility] Eosinophils % 8.0(H) 0.0 - 6.0 % 02/15/2019 4:05 AM T [facility] Basophils % 0.5 0.0 - 2.0 % 02/15/2019 4:05 AM [facility] Immature Granulocytes 1.9(H) 0 - 1 % 02/15/2019 4:05 AM T [facility] Neutrophil Absolute 6.18 2.01 - 7.14 x10E9/L 02/15/2019 4:05 AM [facility] Lymphocytes Absolute 0.74(L) 1.07 - 3.94 x10E9/L 02/15/2019 4:05 AM [facility] Monocytes Absolute 0.68 0.26 - 1.07 x10E9/L 02/15/2019 4:05 AM [facility] Eosinophils Absolute 0.68(H) 0 - 0.47 x10E9/L 02/15/2019 4:05 AM [facility] Basophils Absolute 0.04 0 - 0.08 x10E9/L 02/15/2019 4:05 AM [facility] Immature Granulocytes Absolute 0.16(H) 0.00 - 0.06 x10E9/L 02/15/2019 4:05 AM [facility] nRBC Auto 0 /100 WBC 02/15/2019 4:05 AM [facility] Blood BLOOD SPECIMEN / Unknown Lab Venipuncture / Unknown 02/15/2019 3:07 AM CDT 02/15/2019 3:51 AM CDT Blaire Meek MD LAB - HEMATOLOGY ORD ERABLES [facility] [address] [place] [address] * (ABNORMAL) PT-INR (02/14/2019 3:46 AM CDT) PT 18.3(H) 9.5 - 11.6 sec 02/14/2019 5:27 AM CDT [facility] INR 1.9(H) 0.9 - 1.1 02/14/2019 5:27 AM CDT [facility] Blood BLOOD SPECIMEN / Unknown Lab Venipuncture / Unknown 02/14/2019 3:46 AM CDT 02/14/2019 4:16 AM CDT [facility] - 02/14/2019 5:27 AM CDT Conventional Warfarin Anticoagulant Therapy: INR Reference Range: ??2.0-3.0 Intensive Warfarin Anticoagulant Therapy: INR Reference Range: ? 2.5-3.5 Blaire Meek MD LAB - COAGULATION OR DERABLES [facility] [address] [place] [address] * (ABNORMAL) BASIC METABOLIC PANEL (CALCIUM TOTAL) (02/14/2019 3:46 AM CDT) Glucose 113(H) 74 - 106 mg/dL 02/14/2019 4:56 [facility] Sodium 141 136 - 145 mmol/L 02/14/2019 4:56 [facility] Potassium 3.7 3.5 - 5.1 mmol/L 02/14/2019 4:56 AM [facility] Chloride 108(H) 98 - 107 mmol/L 02/14/2019 4:56 AM T [facility] CO2 28 23 - 31 mmol/L 02/14/2019 4:56 AM [facility] Calcium 8.4 8.4 - 10.2 mg/dL 02/14/2019 4:56 AM [facility] Anion Gap 5(L) 8 - 16 mmol/L 02/14/2019 4:56 AM T [facility] BUN 18 8.4 - 25.7 mg/dL 02/14/2019 4:56 AM T [facility] Creatinine 1.10 0.73 - 1.18 mg/dL 02/14/2019 4:56 AM [facility] eGFR by MDRD >60 mL/min/1.7 3m2 02/14/2019 4:56 AM [facility] eGFR by MDRD >60 mL/min/1.7 3m2 02/14/2019 4:56 AM CDT [facility] Blood BLOOD SPECIMEN / Unknown 02/14/2019 3:46 AM CDT 02/14/2019 4:15 AM CDT Blaire Meek MD LAB - CHEMISTRY ROYCE Lutz Organization Address City/State/ZIP Co de Phone Number [facility] [address] [place] [address] * (ABNORMAL) CBC W AUTO DIFFERENTIAL (02/14/2019 2:58 AM CDT) WBC 9.6 4.4 - 10.7 x10E9/L 02/14/2019 4:47 AM CDT [facility] WBC Corrected 02/14/2019 4:47 AM CDT [facility] RBC 2.80(L) 3.80 - 5.40 x10E12/L 02/14/2019 4:47 AM CDT [facility] Hemoglobin 7.7(L) 12.0 - 17.6 gm/dL 02/14/2019 4:47 AM CDT [facility] Hematocrit 26.0(L) 35.2 - 51.7 % 02/14/2019 4:47 AM CDT [facility] MCV 92.9 80.7 - 98.3 fl 02/14/2019 4:47 AM CDT [facility] MCH 27.5 26.7 - 34.0 pg 02/14/2019 4:47 AM CDT [facility] MCHC 29.6(L) 30.8 - 35.9 gm/dL 02/14/2019 4:47 AM CDT [facility] Platelet Count 288 153 - 416 x10E9/L 02/14/2019 4:47 AM CDT [facility] RDW-CV 17.0(H) 12.1 - 14.9 % 02/14/2019 4:47 AM CDT [facility] MPV 11.9 9.4 - 12.9 fl 02/14/2019 4:47 AM CDT [facility] Neutrophils % 71.9 44.0 - 73.0 % 02/14/2019 4:47 AM CDT [facility] Lymphocytes % 8.6(L) 20.0 - 43.0 % 02/14/2019 4:47 AM CDT [facility] Monocytes % 9.6 5.0 - 13.0 % 02/14/2019 4:47 AM CDT [facility] Eosinophils % 7.0(H) 0.0 - 6.0 % 02/14/2019 4:47 AM CDT [facility] Basophils % 0.5 0.0 - 2.0 % 02/14/2019 4:47 AM T [facility] Immature Granulocytes 2.4(H) 0 - 1 % 02/14/2019 4:47 AM CDT [facility] Neutrophil Absolute 6.90 2.01 - 7.14 x10E9/L 02/14/2019 4:47 AM CDT [facility] Lymphocytes Absolute 0.83(L) 1.07 - 3.94 x10E9/L 02/14/2019 4:47 AM CDT [facility] Monocytes Absolute 0.92 0.26 - 1.07 x10E9/L 02/14/2019 4:47 AM T [facility] Eosinophils Absolute 0.67(H) 0 - 0.47 x10E9/L 02/14/2019 4:47 AM T [facility] Basophils Absolute 0.05 0 - 0.08 x10E9/L 02/14/2019 4:47 AM T [facility] Immature Granulocytes Absolute 0.23(H) 0.00 - 0.06 x10E9/L 02/14/2019 4:47 AM T [facility] nRBC Auto 0 /100 WBC 02/14/2019 4:47 AM T [facility] Blood BLOOD SPECIMEN / Unknown Lab Venipuncture / Unknown 02/14/2019 2:58 AM CDT 02/14/2019 4:10 AM CDT Blaire Meek MD LAB - HEMATOLOGY ORD ERABLES [facility] [address] [place] [address] * XR CHEST FOR PICC PLMT (Place [...] - 11.6 sec 02/13/2019 5:20 AM CDT [facility] INR 1.3(H) 0.9 - 1.1 02/13/2019 5:20 AM CDT [facility] Blood BLOOD SPECIMEN / Unknown Lab Venipuncture / Unknown 02/13/2019 4:40 AM CDT 02/13/2019 4:56 AM CDT Narrative [facility] - 02/13/2019 5:20 AM CDT Conventional Warfarin Anticoagulant Therapy: INR Reference Range: ??2.0-3.0 Intensive Warfarin Anticoagulant Therapy: INR Reference Range: ? 2.5-3.5 Blaire Meek MD LAB - COAGULATION OR DERABLES [facility] [address] [place] [address] * BASIC METABOLIC PANEL (CALCIUM TOTAL) (02/13/2019 4:40 AM CDT) Glucose 106 74 - 106 mg/dL 02/13/2019 5:49 AM CDT [facility] Sodium 142 136 - 145 mmol/L 02/13/2019 5:49 AM CDT [facility] Potassium 3.6 3.5 - 5.1 mmol/L 02/13/2019 5:49 AM CDT [facility] Chloride 106 98 - 107 mmol/L 02/13/2019 5:49 AM CDT [facility] CO2 28 23 - 31 mmol/L 02/13/2019 5:49 AM CDT [facility] Calcium 8.6 8.4 - 10.2 mg/dL 02/13/2019 5:49 AM CDT [facility] Anion Gap 8 8 - 16 mmol/L 02/13/2019 5:49 AM CDT [facility] BUN 17 8.4 - 25.7 mg/dL 02/13/2019 5:49 AM CDT [facility] Creatinine 0.97 0.73 - 1.18 mg/dL 02/13/2019 5:49 AM CDT [facility] eGFR by MDRD >60 mL/min/1.7 3m2 02/13/2019 5:49 AM CDT [facility] eGFR by MDRD >60 mL/min/1.7 3m2 02/13/2019 5:49 AM CDT [facility] Blood BLOOD SPECIMEN / Unknown Lab Venipuncture / Unknown 02/13/2019 4:40 AM CDT 02/13/2019 4:56 AM CDT Blaire Meek MD LAB - CHEMISTRY ROYCE KLINE [facility] Organization Address City/State/ZIP Co de Phone Number [facility] [address] [place] [address] * (ABNORMAL) CBC W AUTO DIFFERENTIAL (02/13/2019 4:40 AM CDT) WBC 8.9 4.4 - 10.7 x10E9/L 02/13/2019 5:22 AM CDT [facility] WBC Corrected 02/13/2019 5:22 AM CDT [facility] RBC 2.73(L) 3.80 - 5.40 x10E12/L 02/13/2019 5:22 AM CDT [facility] Hemoglobin 7.6(L) 12.0 - 17.6 gm/dL 02/13/2019 5:22 AM CDT [facility] Hematocrit 25.1(L) 35.2 - 51.7 % 02/13/2019 5:22 AM CDT [facility] MCV 91.9 80.7 - 98.3 fl 02/13/2019 5:22 AM CDT [facility] MCH 27.8 26.7 - 34.0 pg 02/13/2019 5:22 AM CDT [facility] MCHC 30.3(L) 30.8 - 35.9 gm/dL 02/13/2019 5:22 AM [facility] Platelet Count 287 153 - 416 x10E9/L 02/13/2019 5:22 AM [facility] RDW-CV 16.7(H) 12.1 - 14.9 % 02/13/2019 5:22 AM [facility] MPV 11.7 9.4 - 12.9 fl 02/13/2019 5:22 AM [facility] Neutrophils % 70.3 44.0 - 73.0 % 02/13/2019 5:22 AM [facility] Lymphocytes % 8.8(L) 20.0 - 43.0 % 02/13/2019 5:22 AM [facility] Monocytes % 8.8 5.0 - 13.0 % 02/13/2019 5:22 AM [facility] Eosinophils % 8.1(H) 0.0 - 6.0 % 02/13/2019 5:22 AM [facility] Basophils % 0.6 0.0 - 2.0 % 02/13/2019 5:22 AM [facility] Immature Granulocytes 3.4(H) 0 - 1 % 02/13/2019 5:22 AM [facility] Neutrophil Absolute 6.25 2.01 - 7.14 x10E9/L 02/13/2019 5:22 AM [facility] Lymphocytes Absolute 0.78(L) 1.07 - 3.94 x10E9/L 02/13/2019 5:22 AM T [facility] Monocytes Absolute 0.78 0.26 - 1.07 x10E9/L 02/13/2019 5:22 AM [facility] Eosinophils Absolute 0.72(H) 0 - 0.47 x10E9/L 02/13/2019 5:22 AM T [facility] Basophils Absolute 0.05 0 - 0.08 x10E9/L 02/13/2019 5:22 AM CDT [facility] Immature Granulocytes Absolute 0.30(H) 0.00 - 0.06 x10E9/L 02/13/2019 5:22 AM CDT [facility] nRBC Auto 0 /100 WBC 02/13/2019 5:22 AM CDT [facility] Blood BLOOD SPECIMEN / Unknown Lab Venipuncture / Unknown 02/13/2019 4:40 AM CDT 02/13/2019 4:56 AM CDT Blaire Meek MD LAB - HEMATOLOGY ORD ERABLES Performing Organization Address City/[facility]/ZIP Co de Phone Number [facility] [address] [place] [phone] * (ABNORMAL) VANCOMYCIN LEVEL TROUGH (02/12/2019 9:22 AM CDT) Vancomycin Trough 22.6(H) 10.0 - 20.0 ug/mL 02/12/2019 10:04 AM CDT [facility] Blood BLOOD SPECIMEN / Unknown Lab Venipuncture / Unknown 02/12/2019 9:22 AM CDT 02/12/2019 9:32 AM CDT Blaire Meek MD LAB - CHEMISTRY ORDE RABANGELIA Performing Organization Address City/[facility] Co de Phone Number [facility] [address] [place] [address] * PT-INR (02/12/2019 3:15 AM CDT) PT 11.0 9.5 - 11.6 sec 02/12/2019 4:07 AM CDT [facility] INR 1.0 0.9 - 1.1 02/12/2019 4:07 AM CDT [facility] Blood BLOOD SPECIMEN / Unknown Lab Venipuncture / Unknown 02/12/2019 3:15 AM CDT 02/12/2019 3:43 AM CDT Narrative [facility] - 02/12/2019 4:07 AM CDT Conventional Warfarin Anticoagulant Therapy: INR Reference Range: ??2.0-3.0 Intensive Warfarin Anticoagulant Therapy: INR Reference Range: ? 2.5-3.5 Blaire Meek MD LAB - COAGULATION OR DERABLES [facility] [address], [place] [id number] * (ABNORMAL) BASIC METABOLIC PANEL (CALCIUM TOTAL) (02/12/2019 3:15 AM CDT) [facility] Glucose 114(H) 74 - 106 mg/dL 02/12/2019 4:19 AM CDT [facility] Sodium 139 136 - 145 mmol/L 02/12/2019 4:19 AM CDT [facility] Potassium 3.5 3.5 - 5.1 mmol/L 02/12/2019 4:19 AM CDT [facility] Chloride 105 98 - 107 mmol/L 02/12/2019 4:19 AM CDT [facility] CO2 27 23 - 31 mmol/L 02/12/2019 4:19 AM CDT [facility] Calcium 8.7 8.4 - 10.2 mg/dL 02/12/2019 4:19 AM T [facility] Anion Gap 7(L) 8 - 16 mmol/L 02/12/2019 4:19 AM CDT [facility] BUN 19 8.4 - 25.7 mg/dL 02/12/2019 4:19 AM CDT [facility] Creatinine 0.99 0.73 - 1.18 mg/dL 02/12/2019 4:19 AM CDT [facility] eGFR by MDRD >60 mL/min/1.7 3m2 02/12/2019 4:19 AM CDT [facility] eGFR by MDRD >60 mL/min/1.7 3m2 02/12/2019 4:19 AM CDT [facility] Blood BLOOD SPECIMEN / Unknown Lab Venipuncture / Unknown 02/12/2019 3:15 AM CDT 02/12/2019 3:43 AM CDT Blaire Meek MD LAB - CHEMISTRY ORDE RABANGELIA [facility] [address], [place] [id number] * (ABNORMAL) CBC W AUTO DIFFERENTIAL (02/12/2019 3:15 AM CDT) [facility] WBC 9.3 4.4 - 10.7 x10E9/L 02/12/2019 3:56 AM CDT [facility] WBC Corrected 02/12/2019 3:56 AM CDT [facility] RBC 2.84(L) 3.80 - 5.40 x10E12/L 02/12/2019 3:56 AM CDT [facility] Hemoglobin 7.5(L) 12.0 - 17.6 gm/dL 02/12/2019 3:56 AM [facility] Hematocrit 26.0(L) 35.2 - 51.7 % 02/12/2019 3:56 AM CDT [facility] MCV 91.5 80.7 - 98.3 fl 02/12/2019 3:56 AM CDT [facility] MCH 26.4(L) 26.7 - 34.0 pg 02/12/2019 3:56 [facility] MCHC 28.8(L) 30.8 - 35.9 gm/dL 02/12/2019 3:56 AM [facility] Platelet Count 270 153 - 416 x10E9/L 02/12/2019 3:56 AM [facility] RDW-CV 16.3(H) 12.1 - 14.9 % 02/12/2019 3:56 AM T [facility] MPV 11.7 9.4 - 12.9 fl 02/12/2019 3:56 AM [facility] Neutrophils % 74.3(H) 44.0 - 73.0 % 02/12/2019 3:56 AM [facility] Lymphocytes % 8.4(L) 20.0 - 43.0 % 02/12/2019 3:56 AM T [facility] Monocytes % 8.4 5.0 - 13.0 % 02/12/2019 3:56 AM CDT [facility] Eosinophils % 6.0 0.0 - 6.0 % 02/12/2019 3:56 AM CDT [facility] Basophils % 0.4 0.0 - 2.0 % 02/12/2019 3:56 AM T [facility] Immature Granulocytes 2.5(H) 0 - 1 % 02/12/2019 3:56 AM T [facility] Neutrophil Absolute 6.88 2.01 - 7.14 x10E9/L 02/12/2019 3:56 AM CDT [facility] Lymphocytes Absolute 0.78(L) 1.07 - 3.94 x10E9/L 02/12/2019 3:56 AM CDT [facility] Monocytes Absolute 0.78 0.26 - 1.07 x10E9/L 02/12/2019 3:56 AM CDT [facility] Eosinophils Absolute 0.56(H) 0 - 0.47 x10E9/L 02/12/2019 3:56 AM CDT [facility] Basophils Absolute 0.04 0 - 0.08 x10E9/L 02/12/2019 3:56 AM CDT [facility] Immature Granulocytes Absolute 0.23(H) 0.00 - 0.06 x10E9/L 02/12/2019 3:56 AM CDT [facility] nRBC Auto 0 /100 WBC 02/12/2019 3:56 AM CDT [facility] Blood BLOOD SPECIMEN / Unknown Lab Venipuncture / Unknown 02/12/2019 3:15 AM CDT 02/12/2019 3:44 AM CDT Blaire Meek MD LAB - HEMATOLOGY ORD ERABLES Performing Organization Address City/State/[facility] Co de Phone Number [facility] [address] [place] [address] * PT-INR (02/11/2019 2:34 PM CDT) PT 11.0 9.5 - 11.6 sec 02/11/2019 3:04 PM CDT [facility] INR 1.0 0.9 - 1.1 02/11/2019 3:04 PM CDT [facility] Blood BLOOD SPECIMEN / Unknown Lab Venipuncture / Unknown 02/11/2019 2:34 PM CDT 02/11/2019 2:52 PM CDT Narrative [facility] - 02/11/2019 3:04 PM CDT Conventional Warfarin Anticoagulant Therapy: INR Reference Range: ??2.0-3.0 Intensive Warfarin Anticoagulant Therapy: INR Reference Range: ? 2.5-3.5 Blaire Meek MD LAB - COAGULATION OR DERABLES [facility] [address] [place], [place] [id number] * (ABNORMAL) BASIC METABOLIC PANEL (CALCIUM TOTAL) (02/11/2019 2:42 AM CDT) Glucose 113(H) 74 - 106 mg/dL 02/11/2019 4:37 AM CDT [facility] Sodium 137 136 - 145 mmol/L 02/11/2019 4:37 AM CDT [facility] Potassium 3.5 3.5 - 5.1 mmol/L 02/11/2019 4:37 AM CDT [facility] Chloride 101 98 - 107 mmol/L 02/11/2019 4:37 AM CDT [facility] CO2 27 23 - 31 mmol/L 02/11/2019 4:37 AM CDT [facility] Calcium 9.0 8.4 - 10.2 mg/dL 02/11/2019 4:37 AM CDT [facility] Anion Gap 9 8 - 16 mmol/L 02/11/2019 4:37 AM CDT [facility] BUN 21 8.4 - 25.7 mg/dL 02/11/2019 4:37 AM CDT [facility] Creatinine 1.00 0.73 - 1.18 mg/dL 02/11/2019 4:37 AM CDT [facility] eGFR by MDRD >60 mL/min/1.7 3m2 02/11/2019 4:37 AM CDT [facility] eGFR by MDRD >60 mL/min/1.7 3m2 02/11/2019 4:37 AM CDT [facility] Blood BLOOD SPECIMEN / Unknown Lab Venipuncture / Unknown 02/11/2019 2:42 AM CDT 02/11/2019 3:51 AM CDT Blaire Meek MD LAB - CHEMISTRY ROYCE KLINE [facility] [address] [place] [address] * (ABNORMAL) CBC W AUTO DIFFERENTIAL (02/11/2019 2:42 AM CDT) WBC 10.3 4.4 - 10.7 x10E9/L 02/11/2019 4:01 AM [facility] WBC Corrected 02/11/2019 4:01 AM [facility] RBC 2.87(L) 3.80 - 5.40 x10E12/L 02/11/2019 4:01 AM [facility] Hemoglobin 8.0(L) 12.0 - 17.6 gm/dL 02/11/2019 4:01 AM [facility] Hematocrit 26.4(L) 35.2 - 51.7 % 02/11/2019 4:01 AM [facility] MCV 92.0 80.7 - 98.3 fl 02/11/2019 4:01 AM [facility] MCH 27.9 26.7 - 34.0 pg 02/11/2019 4:01 AM [facility] MCHC 30.3(L) 30.8 - 35.9 gm/dL 02/11/2019 4:01 AM [facility] Platelet Count 277 153 - 416 x10E9/L 02/11/2019 4:01 AM [facility] RDW-CV 16.2(H) 12.1 - 14.9 % 02/11/2019 4:01 AM [facility] MPV 11.7 9.4 - 12.9 fl 02/11/2019 4:01 AM [facility] Neutrophils % 74.0(H) 44.0 - 73.0 % 02/11/2019 4:01 AM [facility] Lymphocytes % 7.8(L) 20.0 - 43.0 % 02/11/2019 4:01 AM [facility] Monocytes % 10.2 5.0 - 13.0 % 02/11/2019 4:01 AM [facility] Eosinophils % 5.3 0.0 - 6.0 % 02/11/2019 4:01 AM [facility] Basophils % 0.4 0.0 - 2.0 % 02/11/2019 4:01 AM [facility] Immature Granulocytes 2.3(H) 0 - 1 % 02/11/2019 4:01 AM [facility] Neutrophil Absolute 7.63(H) 2.01 - 7.14 x10E9/L 02/11/2019 4:01 AM [facility] Lymphocytes Absolute 0.81(L) 1.07 - 3.94 x10E9/L 02/11/2019 4:01 AM CDT [facility] Monocytes Absolute 1.05 0.26 - 1.07 x10E9/L 02/11/2019 4:01 AM CDT [facility] Eosinophils Absolute 0.55(H) 0 - 0.47 x10E9/L 02/11/2019 4:01 AM CDT [facility] Basophils Absolute 0.04 0 - 0.08 x10E9/L 02/11/2019 4:01 AM [facility] Immature Granulocytes Absolute 0.24(H) 0.00 - 0.06 x10E9/L 02/11/2019 4:01 AM [facility] nRBC Auto 0 /100 WBC 02/11/2019 4:01 AM [facility] Blood BLOOD SPECIMEN / Unknown Lab Venipuncture / Unknown 02/11/2019 2:42 AM CDT 02/11/2019 3:51 AM CDT Blaire Meek MD LAB - HEMATOLOGY ORD ERABLES [facility] [address] [place] [address] * (ABNORMAL) BASIC METABOLIC PANEL (CALCIUM TOTAL) (02/10/2019 3:18 AM CDT) Glucose 108(H) 74 - 106 mg/dL 02/10/2019 5:04 AM [facility] Sodium 139 136 - 145 mmol/L 02/10/2019 5:04 AM [facility] Potassium 3.8 3.5 - 5.1 mmol/L 02/10/2019 5:04 AM [facility] Chloride 105 98 - 107 mmol/L 02/10/2019 5:04 AM T [facility] CO2 26 23 - 31 mmol/L 02/10/2019 5:[facility] Calcium 9.0 8.4 - 10.2 mg/dL 02/10/2019 5:04 AM [facility] Anion Gap 8 8 - 16 mmol/L 02/10/2019 5:04 AM T [facility] BUN 20 8.4 - 25.7 mg/dL 02/10/2019 5:04 AM CDT [facility] Creatinine 1.16 0.73 - 1.18 mg/dL 02/10/2019 5:04 AM CDT [facility] eGFR by MDRD >60 mL/min/1.7 3m2 02/10/2019 5:04 AM CDT [facility] eGFR by MDRD >60 mL/min/1.7 3m2 02/10/2019 5:04 AM CDT [facility] Blood BLOOD SPECIMEN / Unknown Lab Venipuncture / Unknown 02/10/2019 3:18 AM CDT 02/10/2019 4:24 AM CDT Blaire Meek MD LAB - CHEMISTRY ROYCE KLINE [facility] [address] [place], [place] [id number] * (ABNORMAL) CBC W AUTO DIFFERENTIAL (02/10/2019 3:18 AM CDT) WBC 10.1 4.4 - 10.7 x10E9/L 02/10/2019 4:37 [facility] WBC Corrected 02/10/2019 4:37 [facility] RBC 2.85(L) 3.80 - 5.40 x10E12/L 02/10/2019 4:37 AM CDT [facility] Hemoglobin 7.9(L) 12.0 - 17.6 gm/dL 02/10/2019 4:37 [facility] Hematocrit 26.1(L) 35.2 - 51.7 % 02/10/2019 4:37 AM CDT [facility] MCV 91.6 80.7 - 98.3 fl 02/10/2019 4:37 AM CDT [facility] MCH 27.7 26.7 - 34.0 pg 02/10/2019 4:37 AM CDT [facility] MCHC 30.3(L) 30.8 - 35.9 gm/dL 02/10/2019 4:37 AM CDT [facility] Platelet Count 260 153 - 416 x10E9/L 02/10/2019 4:37 AM [facility] RDW-CV 16.2(H) 12.1 - 14.9 % 02/10/2019 4:37 AM [facility] MPV 11.9 9.4 - 12.9 fl 02/10/2019 4:37 AM [facility] Neutrophils % 76.6(H) 44.0 - 73.0 % 02/10/2019 4:37 AM [facility] Lymphocytes % 7.6(L) 20.0 - 43.0 % 02/10/2019 4:37 AM [facility] Monocytes % 10.5 5.0 - 13.0 % 02/10/2019 4:37 AM [facility] Eosinophils % 3.3 0.0 - 6.0 % 02/10/2019 4:37 AM [facility] Basophils % 0.5 0.0 - 2.0 % 02/10/2019 4:37 AM [facility] Immature Granulocytes 1.5(H) 0 - 1 % 02/10/2019 4:37 AM [facility] Neutrophil Absolute 7.77(H) 2.01 - 7.14 x10E9/L 02/10/2019 4:37 AM [facility] Lymphocytes Absolute 0.77(L) 1.07 - 3.94 x10E9/L 02/10/2019 4:37 AM [facility] Monocytes Absolute 1.06 0.26 - 1.07 x10E9/L 02/10/2019 4:37 AM [facility] Eosinophils Absolute 0.33 0 - 0.47 x10E9/L 02/10/2019 4:37 AM [facility] Basophils Absolute 0.05 0 - 0.08 x10E9/L 02/10/2019 4:37 AM [facility] Immature Granulocytes Absolute 0.15(H) 0.00 - 0.06 x10E9/L 02/10/2019 4:37 AM [facility] nRBC Auto 0 /100 WBC 02/10/2019 4:37 AM [facility] Blood BLOOD SPECIMEN / Unknown Lab Venipuncture / Unknown 02/10/2019 3:18 AM CDT 02/10/2019 4:24 AM CDT Blaire Meek MD LAB - HEMATOLOGY ORD ERABLES [facility] [address], [place] [id number] * (ABNORMAL) BASIC METABOLIC PANEL (CALCIUM TOTAL) (02/09/2019 2:30 AM CDT) Glucose 119(H) 74 - 106 mg/dL 02/09/2019 3:04 AM CDT [facility] Sodium 137 136 - 145 mmol/L 02/09/2019 3:04 AM CDT [facility] Potassium 4.3 3.5 - 5.1 mmol/L 02/09/2019 3:04 AM CDT [facility] Chloride 102 98 - 107 mmol/L 02/09/2019 3:04 AM CDT [facility] CO2 25 23 - 31 mmol/L 02/09/2019 3:04 AM CDT [facility] Calcium 8.9 8.4 - 10.2 mg/dL 02/09/2019 3:04 AM T [facility] Anion Gap 10 8 - 16 mmol/L 02/09/2019 3:04 AM CDT [facility] BUN 20 8.4 - 25.7 mg/dL 02/09/2019 3:04 AM CDT [facility] Creatinine 1.23(H) 0.73 - 1.18 mg/dL 02/09/2019 3:04 AM CDT [facility] eGFR by MDRD 58 mL/min/1.7 3m2 02/09/2019 3:04 AM CDT [facility] eGFR by MDRD >60 mL/min/1.7 3m2 02/09/2019 3:04 AM CDT [facility] Blood BLOOD SPECIMEN / Unknown Lab Venipuncture / Unknown 02/09/2019 2:30 AM CDT 02/09/2019 2:46 AM CDT Blaire Meek MD LAB - CHEMISTRY ROYCE KLINE [facility] [address], [place] [id number] * (ABNORMAL) CBC W AUTO DIFFERENTIAL (02/09/2019 2:30 AM CDT) WBC 11.7(H) 4.4 - 10.7 x10E9/L 02/09/2019 2:50 AM CDT [facility] WBC Corrected 02/09/2019 2:50 AM CDT [facility] RBC 2.97(L) 3.80 - 5.40 x10E12/L 02/09/2019 2:50 AM CDT [facility] Hemoglobin 8.3(L) 12.0 - 17.6 gm/dL 02/09/2019 2:50 AM CDT [facility] Hematocrit 27.5(L) 35.2 - 51.7 % 02/09/2019 2:50 AM CDT [facility] MCV 92.6 80.7 - 98.3 fl 02/09/2019 2:50 AM CDT [facility] MCH 27.9 26.7 - 34.0 pg 02/09/2019 2:50 AM CDT [facility] MCHC 30.2(L) 30.8 - 35.9 gm/dL 02/09/2019 2:50 AM CDT [facility] Platelet Count 282 153 - 416 x10E9/L 02/09/2019 2:50 AM CDT [facility] RDW-CV 15.7(H) 12.1 - 14.9 % 02/09/2019 2:50 AM CDT [facility] MPV 11.2 9.4 - 12.9 fl 02/09/2019 2:50 AM CDT [facility] Neutrophils % 85.8(H) 44.0 - 73.0 % 02/09/2019 2:50 AM CDT [facility] Lymphocytes % 4.8(L) 20.0 - 43.0 % 02/09/2019 2:50 AM CDT [facility] Monocytes % 8.2 5.0 - 13.0 % 02/09/2019 2:50 AM CDT [facility] Eosinophils % 0.1 0.0 - 6.0 % 02/09/2019 2:50 AM CDT [facility] Basophils % 0.2 0.0 - 2.0 % 02/09/2019 2:50 AM CDT [facility] Immature Granulocytes 0.9 0 - 1 % 02/09/2019 2:50 AM CDT [facility] Neutrophil Absolute 10.01(H) 2.01 - 7.14 x10E9/L 02/09/2019 2:50 AM CDT [facility] Lymphocytes Absolute 0.56(L) 1.07 - 3.94 x10E9/L 02/09/2019 2:50 AM CDT [facility] Monocytes Absolute 0.95 0.26 - 1.07 x10E9/L 02/09/2019 2:50 AM CDT [facility] Eosinophils Absolute 0.01 0 - 0.47 x10E9/L 02/09/2019 2:50 AM CDT [facility] Basophils Absolute 0.02 0 - 0.08 x10E9/L 02/09/2019 2:50 AM CDT [facility] Immature Granulocytes Absolute 0.10(H) 0.00 - 0.06 x10E9/L 02/09/2019 2:50 AM CDT [facility] nRBC Auto 0 /100 WBC 02/09/2019 2:50 AM CDT [facility] Blood BLOOD SPECIMEN / Unknown Lab Venipuncture / Unknown 02/09/2019 2:30 AM CDT 02/09/2019 2:45 AM CDT Blaire Meek MD LAB - HEMATOLOGY ORD ERABLES Performing Organization Address City/[facility]/ZIP Co de Phone Number [facility] [address] [place] [address] * TYPE + SCREEN PANEL (02/08/2019 8:57 AM CDT) ABO A 02/08/2019 10:09 AM CDT [facility] Rh Type Positive 02/08/2019 10:09 AM CDT [facility] Comment:History checked. Antibody Screen Negative 02/08/2019 10:09 AM CDT [facility] Blood Bank BLOOD SPECIMEN / Unknown Lab Venipuncture / Unknown 02/08/2019 8:57 AM CDT 02/08/2019 9:40 AM CDT Alberto Shell MD LAB - BLOOD BA NK ORDERABLES Performing Organization Address City/[facility] Co de Phone Number [facility] [address] [phone] * (ABNORMAL) BASIC METABOLIC PANEL (CALCIUM TOTAL) (02/08/2019 2:56 AM CDT) Pathologist [facility] Glucose 90 74 - 106 mg/dL 02/08/2019 4:44 AM CDT [facility] Sodium 137 136 - 145 mmol/L 02/08/2019 4:44 AM CDT [facility] Potassium 3.8 3.5 - 5.1 mmol/L 02/08/2019 4:44 AM CDT [facility] Chloride 103 98 - 107 mmol/L 02/08/2019 4:44 AM CDT [facility] CO2 27 23 - 31 mmol/L 02/08/2019 4:44 AM CDT [facility] Calcium 9.3 8.4 - 10.2 mg/dL 02/08/2019 4:44 AM CDT [facility] Anion Gap 7(L) 8 - 16 mmol/L 02/08/2019 4:44 AM CDT [facility] BUN 20 8.4 - 25.7 mg/dL 02/08/2019 4:44 AM CDT [facility] Creatinine 1.17 0.73 - 1.18 mg/dL 02/08/2019 4:44 AM CDT [facility] eGFR by MDRD >60 mL/min/1.7 3m2 02/08/2019 4:44 AM T [facility] eGFR by MDRD >60 mL/min/1.7 3m2 02/08/2019 4:44 AM T [facility] Blood BLOOD SPECIMEN / Unknown Lab Venipuncture / Unknown 02/08/2019 2:56 AM CDT 02/08/2019 3:55 AM CDT Blaire Meek MD LAB - CHEMISTRY ROYCE KLINE [facility] Organization Address City/State/ZIP Co de Phone Number [facility] [address] [place] [address] * (ABNORMAL) CBC W AUTO DIFFERENTIAL (02/08/2019 2:56 AM CDT) Pathologist [facility] WBC 8.9 4.4 - 10.7 x10E9/L 02/08/2019 4:17 AM CDT [facility] WBC Corrected 02/08/2019 4:17 AM CDT [facility] RBC 3.35(L) 3.80 - 5.40 x10E12/L 02/08/2019 4:17 AM CDT [facility] Hemoglobin 8.9(L) 12.0 - 17.6 gm/dL 02/08/2019 4:17 AM CDT [facility] Hematocrit 30.8(L) 35.2 - 51.7 % 02/08/2019 4:17 AM CDT [facility] MCV 91.9 80.7 - 98.3 fl 02/08/2019 4:17 AM CDT [facility] MCH 26.6(L) 26.7 - 34.0 pg 02/08/2019 4:17 AM CDT [facility] MCHC 28.9(L) 30.8 - 35.9 gm/dL 02/08/2019 4:17 AM [facility] Platelet Count 241 153 - 416 x10E9/L 02/08/2019 4:17 AM [facility] RDW-CV 15.6(H) 12.1 - 14.9 % 02/08/2019 4:17 AM [facility] MPV 12.1 9.4 - 12.9 fl 02/08/2019 4:17 AM [facility] Neutrophils % 73.2(H) 44.0 - 73.0 % 02/08/2019 4:17 AM [facility] Lymphocytes % 7.9(L) 20.0 - 43.0 % 02/08/2019 4:17 AM T [facility] Monocytes % 10.6 5.0 - 13.0 % 02/08/2019 4:17 AM [facility] Eosinophils % 6.7(H) 0.0 - 6.0 % 02/08/2019 4:17 AM [facility] Basophils % 0.7 0.0 - 2.0 % 02/08/2019 4:17 AM T [facility] Immature Granulocytes 0.9 0 - 1 % 02/08/2019 4:17 AM [facility] Neutrophil Absolute 6.49 2.01 - 7.14 x10E9/L 02/08/2019 4:17 AM CDT [facility] Lymphocytes Absolute 0.70(L) 1.07 - 3.94 x10E9/L 02/08/2019 4:17 AM T [facility] Monocytes Absolute 0.94 0.26 - 1.07 x10E9/L 02/08/2019 4:17 AM CDT [facility] Eosinophils Absolute 0.59(H) 0 - 0.47 x10E9/L 02/08/2019 4:17 AM CDT [facility] Basophils Absolute 0.06 0 - 0.08 x10E9/L 02/08/2019 4:17 AM CDT [facility] Immature Granulocytes Absolute 0.08(H) 0.00 - 0.06 x10E9/L 02/08/2019 4:17 AM CDT [facility] nRBC Auto 0 /100 WBC 02/08/2019 4:17 AM CDT [facility] Blood BLOOD SPECIMEN / Unknown Lab Venipuncture / Unknown 02/08/2019 2:56 AM CDT 02/08/2019 3:55 AM CDT Blaire Meek MD LAB - HEMATOLOGY ORD ERABLES Performing Organization Address City/[facility]/ZIP Co de Phone Number [facility] [address] [place] [id number] * SLIDE SCAN HEMATOLOGY (02/07/2019 4:09 AM CDT) Pathologist [facility] Platelet Estimation Adequate platelets Normal, Adequate platelets 02/07/2019 6:45 AM T [facility] Comment:Platelet clumping no jordan upon slide review Blood BLOOD SPECIMEN / Unknown Lab Venipuncture / Unknown 02/07/2019 4:09 AM CDT 02/07/2019 5:15 AM CDT Michelle Pratt MD LAB - HEMATOLOGY OR DERABLES [facility] [address] [place] [id number] * (ABNORMAL) CBC W AUTO DIFFERENTIAL (02/07/2019 4:09 AM CDT) WBC 10.0 4.4 - 10.7 x10E9/L 02/07/2019 5:59 AM CDT [facility] WBC Corrected 02/07/2019 5:59 AM CDT [facility] RBC 2.96(L) 3.80 - 5.40 x10E12/L 02/07/2019 5:59 AM CDT [facility] Hemoglobin 8.0(L) 12.0 - 17.6 gm/dL 02/07/2019 5:59 AM CDT [facility] Hematocrit 27.5(L) 35.2 - 51.7 % 02/07/2019 5:59 AM CDT [facility] MCV 92.9 80.7 - 98.3 fl 02/07/2019 5:59 AM CDT [facility] MCH 27.0 26.7 - 34.0 pg 02/07/2019 5:59 AM CDT [facility] MCHC 29.1(L) 30.8 - 35.9 gm/dL 02/07/2019 5:59 AM CDT [facility] Platelet Count 176 153 - 416 x10E9/L 02/07/2019 5:59 AM T [facility] RDW-CV 15.7(H) 12.1 - 14.9 % 02/07/2019 5:59 AM CDT [facility] MPV 13.1(H) 9.4 - 12.9 fl 02/07/2019 5:59 AM T [facility] Neutrophils % 79.4(H) 44.0 - 73.0 % 02/07/2019 5:59 AM CDT [facility] Lymphocytes % 5.0(L) 20.0 - 43.0 % 02/07/2019 5:59 AM CDT [facility] Monocytes % 8.6 5.0 - 13.0 % 02/07/2019 5:59 AM CDT [facility] Eosinophils % 5.7 0.0 - 6.0 % 02/07/2019 5:59 AM T [facility] Basophils % 0.6 0.0 - 2.0 % 02/07/2019 5:59 AM CDT [facility] Immature Granulocytes 0.7 0 - 1 % 02/07/2019 5:59 AM CDT [facility] Neutrophil Absolute 7.97(H) 2.01 - 7.14 x10E9/L 02/07/2019 5:59 AM CDT [facility] Lymphocytes Absolute 0.50(L) 1.07 - 3.94 x10E9/L 02/07/2019 5:59 AM CDT [facility] Monocytes Absolute 0.86 0.26 - 1.07 x10E9/L 02/07/2019 5:59 AM CDT [facility] Eosinophils Absolute 0.57(H) 0 - 0.47 x10E9/L 02/07/2019 5:59 AM CDT [facility] Basophils Absolute 0.06 0 - 0.08 x10E9/L 02/07/2019 5:59 AM CDT [facility] Immature Granulocytes Absolute 0.07(H) 0.00 - 0.06 x10E9/L 02/07/2019 5:59 AM CDT [facility] nRBC Auto 0 /100 WBC 02/07/2019 5:59 AM CDT [facility] Blood BLOOD SPECIMEN / Unknown Lab Venipuncture / Unknown 02/07/2019 4:09 AM CDT 02/07/2019 5:15 AM CDT Michelle Pratt MD LAB - HEMATOLOGY OR DERABLES [facility] [address], [place] [id number] * (ABNORMAL) BASIC METABOLIC PANEL (CALCIUM TOTAL) (02/07/2019 4:09 AM CDT) Glucose 92 74 - 106 mg/dL 02/07/2019 6:13 AM [facility] Sodium 135(L) 136 - 145 mmol/L 02/07/2019 6:13 AM CDT [facility] Potassium 4.3 3.5 - 5.1 mmol/L 02/07/2019 6:13 AM [facility] Chloride 104 98 - 107 mmol/L 02/07/2019 6:13 AM T [facility] CO2 23 23 - 31 mmol/L 02/07/2019 6:13 AM T [facility] Calcium 9.0 8.4 - 10.2 mg/dL 02/07/2019 6:13 AM CDT [facility] Anion Gap 8 8 - 16 mmol/L 02/07/2019 6:13 AM CDT [facility] BUN 17 8.4 - 25.7 mg/dL 02/07/2019 6:13 AM [facility] Creatinine 1.20(H) 0.73 - 1.18 mg/dL 02/07/2019 6:13 AM [facility] eGFR by MDRD 60 mL/min/1.7 3m2 02/07/2019 6:13 AM CDT [facility] eGFR by MDRD >60 mL/min/1.7 3m2 02/07/2019 6:13 AM CDT [facility] Blood BLOOD SPECIMEN / Unknown Lab Venipuncture / Unknown 02/07/2019 4:09 AM CDT 02/07/2019 5:15 AM CDT Michelle rPatt MD LAB - CHEMISTRY RAFFY SNOWDEN Performing Organization Address [facility]/ZIP Co de Phone Number [facility] [address] [place] [phone] * VANCOMYCIN LEVEL RANDOM (02/07/2019 4:09 AM CDT) Pathologist [facility] Vancomycin Random 20.9 ug/mL 02/07/2019 6:27 AM CDT [facility] Blood BLOOD SPECIMEN / Unknown Lab Venipuncture / Unknown 02/07/2019 4:09 AM CDT 02/07/2019 5:15 AM CDT Narrative [facility] - 02/07/2019 6:27 AM CDT No reference range available for random Vancomycin levels. All results interpreted by ordering physician. Yasmany Oh MD LAB - CHEMISTRY ROYCE KLINE Performing Organization Address [facility] Co de Phone Number [facility] [address] [place] [phone] * (ABNORMAL) CBC W AUTO DIFFERENTIAL (02/06/2019 4:19 AM CDT) WBC 9.1 4.4 - 10.7 x10E9/L 02/06/2019 4:53 AM CDT [facility] WBC Corrected 02/06/2019 4:53 AM CDT [facility] RBC 2.94(L) 3.80 - 5.40 x10E12/L 02/06/2019 4:53 AM CDT [facility] Hemoglobin 7.9(L) 12.0 - 17.6 gm/dL 02/06/2019 4:53 AM CDT [facility] Hematocrit 27.5(L) 35.2 - 51.7 % 02/06/2019 4:53 AM CDT [facility] MCV 93.5 80.7 - 98.3 fl 02/06/2019 4:53 AM CDT [facility] MCH 26.9 26.7 - 34.0 pg 02/06/2019 4:53 AM CDT [facility] MCHC 28.7(L) 30.8 - 35.9 gm/dL 02/06/2019 4:53 AM CDT [facility] Platelet Count 189 153 - 416 x10E9/L 02/06/2019 4:53 AM T [facility] RDW-CV 15.8(H) 12.1 - 14.9 % 02/06/2019 4:53 AM CDT [facility] MPV 12.1 9.4 - 12.9 fl 02/06/2019 4:53 AM T [facility] Neutrophils % 73.8(H) 44.0 - 73.0 % 02/06/2019 4:53 AM T [facility] Lymphocytes % 5.9(L) 20.0 - 43.0 % 02/06/2019 4:53 AM T [facility] Monocytes % 10.9 5.0 - 13.0 % 02/06/2019 4:53 AM CDT [facility] Eosinophils % 8.2(H) 0.0 - 6.0 % 02/06/2019 4:53 AM T [facility] Basophils % 0.4 0.0 - 2.0 % 02/06/2019 4:53 AM T [facility] Immature Granulocytes 0.8 0 - 1 % 02/06/2019 4:53 AM T [facility] Neutrophil Absolute 6.68 2.01 - 7.14 x10E9/L 02/06/2019 4:53 AM CDT [facility] Lymphocytes Absolute 0.53(L) 1.07 - 3.94 x10E9/L 02/06/2019 4:53 AM CDT [facility] Monocytes Absolute 0.99 0.26 - 1.07 x10E9/L 02/06/2019 4:53 AM CDT [facility] Eosinophils Absolute 0.74(H) 0 - 0.47 x10E9/L 02/06/2019 4:53 AM T [facility] Basophils Absolute 0.04 0 - 0.08 x10E9/L 02/06/2019 4:53 AM CDT [facility] Immature Granulocytes Absolute 0.07(H) 0.00 - 0.06 x10E9/L 02/06/2019 4:53 AM CDT [facility] nRBC Auto 0 /100 WBC 02/06/2019 4:53 AM CDT [facility] Blood BLOOD SPECIMEN / Unknown Lab Venipuncture / Unknown 02/06/2019 4:19 AM CDT 02/06/2019 4:42 AM CDT Michelle Pratt MD LAB - HEMATOLOGY OR DERABLES [facility] [address] [place] [address] * (ABNORMAL) BASIC METABOLIC PANEL (CALCIUM TOTAL) (02/06/2019 4:19 AM CDT) Glucose 110(H) 74 - 106 mg/dL 02/06/2019 5:24 AM [facility] Sodium 136 136 - 145 mmol/L 02/06/2019 5:24 AM [facility] Potassium 4.7 3.5 - 5.1 mmol/L 02/06/2019 5:24 AM [facility] Chloride 106 98 - 107 mmol/L 02/06/2019 5:24 AM T [facility] CO2 23 23 - 31 mmol/L 02/06/2019 5:24 AM [facility] Calcium 8.8 8.4 - 10.2 mg/dL 02/06/2019 5:24 AM [facility] Anion Gap 7(L) 8 - 16 mmol/L 02/06/2019 5:24 AM [facility] BUN 17 8.4 - 25.7 mg/dL 02/06/2019 5:24 AM [facility] Creatinine 1.23(H) 0.73 - 1.18 mg/dL 02/06/2019 5:24 AM [facility] eGFR by MDRD 58 mL/min/1.7 3m2 02/06/2019 5:24 AM [facility] eGFR by MDRD >60 mL/min/1.7 3m2 02/06/2019 5:24 AM CDT [facility] Blood BLOOD SPECIMEN / Unknown Lab Venipuncture / Unknown 02/06/2019 4:19 AM CDT 02/06/2019 4:41 AM CDT Michelle Pratt MD LAB - CHEMISTRY ORD ERABLES Performing Organization Address [facility] Co de Phone Number [facility] [address] [place] [phone] * VANCOMYCIN LEVEL RANDOM (02/06/2019 4:19 AM CDT) [facility] Vancomycin Random 19.2 ug/mL 02/06/2019 5:26 AM CDT [facility] Blood BLOOD SPECIMEN / Unknown Lab Venipuncture / Unknown 02/06/2019 4:19 AM CDT 02/06/2019 4:41 AM CDT Narrative [facility] - 02/06/2019 5:26 AM CDT No reference range available for random Vancomycin levels. All results interpreted by ordering physician. Michelle Pratt MD LAB - CHEMISTRY ORD ERABLES Performing Organization Address [facility] de Phone Number [facility] [address] [place] [phone] * (ABNORMAL) CBC W AUTO DIFFERENTIAL (02/05/2019 2:38 AM CDT) [facility] WBC 10.6 4.4 - 10.7 x10E9/L 02/05/2019 3:27 AM CDT [facility] WBC Corrected 02/05/2019 3:27 AM CDT [facility] RBC 3.08(L) 3.80 - 5.40 x10E12/L 02/05/2019 3:27 AM CDT [facility] Hemoglobin 8.5(L) 12.0 - 17.6 gm/dL 02/05/2019 3:27 AM CDT [facility] Hematocrit 27.9(L) 35.2 - 51.7 % 02/05/2019 3:27 AM CDT [facility] MCV 90.6 80.7 - 98.3 fl 02/05/2019 3:27 AM CDT [facility] MCH 27.6 26.7 - 34.0 pg 02/05/2019 3:27 AM CDT [facility] MCHC 30.5(L) 30.8 - 35.9 gm/dL 02/05/2019 3:27 AM [facility] Platelet Count 220 153 - 416 x10E9/L 02/05/2019 3:27 AM [facility] RDW-CV 15.9(H) 12.1 - 14.9 % 02/05/2019 3:27 AM [facility] MPV 12.0 9.4 - 12.9 fl 02/05/2019 3:27 AM [facility] Neutrophils % 75.3(H) 44.0 - 73.0 % 02/05/2019 3:27 AM [facility] Lymphocytes % 5.2(L) 20.0 - 43.0 % 02/05/2019 3:27 AM [facility] Monocytes % 10.2 5.0 - 13.0 % 02/05/2019 3:27 AM [facility] Eosinophils % 8.5(H) 0.0 - 6.0 % 02/05/2019 3:27 AM [facility] Basophils % 0.2 0.0 - 2.0 % 02/05/2019 3:27 AM [facility] Immature Granulocytes 0.6 0 - 1 % 02/05/2019 3:27 AM [facility] Neutrophil Absolute 7.96(H) 2.01 - 7.14 x10E9/L 02/05/2019 3:27 AM [facility] Lymphocytes Absolute 0.55(L) 1.07 - 3.94 x10E9/L 02/05/2019 3:27 AM [facility] Monocytes Absolute 1.08(H) 0.26 - 1.07 x10E9/L 02/05/2019 3:27 AM [facility] Eosinophils Absolute 0.90(H) 0 - 0.47 x10E9/L 02/05/2019 3:27 AM [facility] Basophils Absolute 0.02 0 - 0.08 x10E9/L 02/05/2019 3:27 AM [facility] Immature Granulocytes Absolute 0.06 0.00 - 0.06 x10E9/L 02/05/2019 3:27 AM [facility] nRBC Auto 0 /100 WBC 02/05/2019 3:27 AM [facility] Blood BLOOD SPECIMEN / Unknown Lab Venipuncture / Unknown 02/05/2019 2:38 AM CDT 02/05/2019 3:14 AM CDT Michelle Pratt MD LAB - HEMATOLOGY OR DERABLES [facility] [address] [place] [address] * (ABNORMAL) BASIC METABOLIC PANEL (CALCIUM TOTAL) (02/05/2019 2:38 AM CDT) [facility] Glucose 118(H) 74 - 106 mg/dL 02/05/2019 3:41 AM CDT [facility] Sodium 136 136 - 145 mmol/L 02/05/2019 3:41 AM CDT [facility] Potassium 4.2 3.5 - 5.1 mmol/L 02/05/2019 3:41 AM CDT [facility] Chloride 107 98 - 107 mmol/L 02/05/2019 3:41 AM CDT [facility] CO2 22(L) 23 - 31 mmol/L 02/05/2019 3:41 AM CDT [facility] Calcium 8.6 8.4 - 10.2 mg/dL 02/05/2019 3:41 AM CDT [facility] Anion Gap 7(L) 8 - 16 mmol/L 02/05/2019 3:41 AM CDT [facility] BUN 20 8.4 - 25.7 mg/dL 02/05/2019 3:41 AM CDT [facility] Creatinine 1.24(H) 0.73 - 1.18 mg/dL 02/05/2019 3:41 AM CDT [facility] eGFR by MDRD 58 mL/min/1.7 3m2 02/05/2019 3:41 AM CDT [facility] eGFR by MDRD >60 mL/min/1.7 3m2 02/05/2019 3:41 AM CDT [facility] Blood BLOOD SPECIMEN / Unknown Lab Venipuncture / Unknown 02/05/2019 2:38 AM CDT 02/05/2019 3:14 AM CDT Michelle Pratt MD LAB - CHEMISTRY ORD ERABLES [facility] [address] [place] [phone] * VANCOMYCIN LEVEL RANDOM (02/05/2019 2:38 AM CDT) Pathologist [facility] Vancomycin Random 21.8 ug/mL 02/05/2019 3:47 AM CDT [facility] Blood BLOOD SPECIMEN / Unknown Lab Venipuncture / Unknown 02/05/2019 2:38 AM CDT 02/05/2019 3:14 AM CDT Narrative [facility] - 02/05/2019 3:47 AM CDT No reference range available for random Vancomycin levels. All results interpreted by ordering physician. Yasmany Oh MD LAB - CHEMISTRY ROYCE KLINE Performing Organization Address [facility] de Phone Number [facility] [address] [place] [phone] * GLUCOSE - POINT OF CARE (02/04/2019 5:16 PM CDT) [facility] Glucose WB/POC 101 70 - 106 mg/dL 02/05/2019 7:00 AM CDT [facility] Specimen Type Arterial/C apillary 02/05/2019 7:00 AM CDT [facility] Blood BLOOD SPECIMEN / Unknown 02/04/2019 5:16 PM CDT 02/05/2019 6:59 AM CDT Michelle Pratt MD LAB - POINT OF CARE ORDERABLES Performing Organization Address [facility] Co de Phone Number [facility] [address] [place] [address] * (ABNORMAL) VANCOMYCIN LEVEL TROUGH (02/04/2019 2:12 PM CDT) Pathologist [facility] Vancomycin Trough 28.6(HH) 10.0 - 20.0 ug/mL 02/04/2019 2:35 PM CDT [facility] Blood BLOOD SPECIMEN / Unknown Lab Venipuncture / Unknown 02/04/2019 2:12 PM CDT 02/04/2019 2:16 PM CDT Yasmany Oh MD LAB - CHEMISTRY ROYCE KLINE [facility] [address] [place] [address] * (ABNORMAL) GLUCOSE - POINT OF CARE (02/04/2019 12:09 PM CDT) Glucose WB/POC 111(H) 70 - 106 mg/dL 02/04/2019 2:47 PM CDT [facility] Specimen Type Arterial/C apillary 02/04/2019 2:47 PM CDT [facility] Blood BLOOD SPECIMEN / Unknown 02/04/2019 12:09 PM CDT 02/04/2019 2:46 PM CDT Michelle Pratt MD LAB - POINT OF CARE ORDERABLES Performing Organization Address [facility]/ZIP Co de Phone Number [facility] [address] [place] [address] * (ABNORMAL) CULTURE WOUND+GRAM STAIN (02/04/2019 11:29 AM CDT) Culture Rare Staphylococcus aureus methicillin-resistan t (MRSA)(A) UMESH 02/06/2019 11:57 AM CDT [facility] Gram Stain Heavy Polymorphonuclear cells 02/06/2019 11:57 AM CDT [facility] Gram Stain Moderate Red blood cells 02/06/2019 11:57 AM CDT [facility] Gram Stain No organisms seen 019 11:57 AM CDT [facility] Microbiology ENTIRE HIP REGION / Unknown Collection / Unknown 02/04/2019 11:29 AM CDT 02/04/2019 12:01 PM CDT Narrative [facility] - 02/06/2019 11:57 AM CDT Methicillin-resistant [...] LAB - MICROBIOLOGY ORDERABLES Performing Organization Address City/[facility]/ZIP Co de Phone Number [facility] [address] [place] [address], [facility] [phone] * CULTURE ANAEROBE (02/04/2019 11:29 AM CDT) Culture No anaerobic organisms isolated UMESH 02/09/2019 11:40 AM CDT [facility] Microbiology ENTIRE HIP REGION / Unknown Collection / Unknown 02/04/2019 11:29 AM CDT 02/04/2019 12:08 PM CDT Narrative [facility] - 02/09/2019 11:40 AM CDT Surgical Description: Right Hip Larry Alexander MD LAB - MICROBIOLOGY ORDERABLES Performing Organization Address City/[facility]/ZIP Co de Phone Number [facility] [address] [place] [address], [facility] [phone] * (ABNORMAL) CULTURE TISSUE+GRAM STAIN (02/04/2019 11:29 AM CDT) Culture Rare Staphylococcus aureus methicillin-resistan t (MRSA)(AA) UMESH 02/06/2019 11:37 AM CDT [facility] Gram Stain Moderate Polymorphonuclear cells 02/06/2019 11:37 AM CDT [facility] Gram Stain Heavy Red blood cells 02/06/2019 11:37 AM T [facility] Gram Stain No organisms seen 019 11:37 AM T [facility] Microbiology ENTIRE [place]IP REGION / Unknown Collection / Unknown 02/04/2019 11:29 AM CDT 02/04/2019 12:08 PM CDT Narrative [facility] - 02/06/2019 11:37 AM CDT [...] Larry Alexander MD LAB - MICROBIOLOGY ORDERABLES [facility] [address] [place] [address], [facility] [phone] * CULTURE ANAEROBE (02/04/2019 11:29 AM CDT) Culture No anaerobic organisms isolated UMESH 02/09/2019 11:40 AM [facility] Microbiology ENTIRE HIP REGION / Unknown Collection / Unknown 02/04/2019 11:29 AM CDT 02/04/2019 12:08 PM CDT Narrative [facility] - 02/09/2019 11:40 AM CDT Surgical Description: Right Hip Larry Alexander MD LAB - MICROBIOLOGY ORDERABLES [facility] [address] [phone] * GLUCOSE - POINT OF CARE (02/04/2019 8:17 AM CDT) Glucose WB/POC 101 70 - 106 mg/dL 02/04/2019 8:48 AM CDT [facility] Specimen Type Arterial/C apillary 02/04/2019 8:48 AM CDT [facility] Blood BLOOD SPECIMEN / Unknown 02/04/2019 8:17 AM CDT 02/04/2019 8:48 AM CDT Michelle Pratt MD LAB - POINT OF CARE ORDERABLES Performing Organization Address City/[facility]/ZIP Co de Phone Number [facility] [address] [place] [address] * PT PTT PANEL (02/04/2019 7:37 AM CDT) PT 11.1 9.5 - 11.6 sec 02/04/2019 9:12 AM CDT [facility] INR 1.0 0.9 - 1.1 02/04/2019 9:12 AM CDT [facility] PTT 26.4 21.0 - 32.0 sec 02/04/2019 9:12 AM CDT [facility] Blood BLOOD SPECIMEN / Unknown 02/04/2019 7:37 AM CDT 02/04/2019 9:03 AM CDT Narrative [facility] - 02/04/2019 9:12 AM CDT Conventional Warfarin Anticoagulant Therapy: INR Reference Range: ??2.0-3.0 Intensive Warfarin Anticoagulant Therapy: INR Reference Range: ? 2.5-3.5 Heparin Therapeutic Range for PTT: 50.5 - 74.3 seconds. Michelle Pratt MD LAB - COAGULATION O RDERABLES Performing Organization Address City/[facility]/ZIP Co de Phone Number [facility] [address] [place] [address] * (ABNORMAL) CBC W/O DIFFERENTIAL (02/04/2019 7:37 AM CDT) [facility] WBC 10.6 4.4 - 10.7 x10E9/L 02/04/2019 8:35 AM CDT [facility] RBC 3.26(L) 3.80 - 5.40 x10E12/L 02/04/2019 8:35 AM CDT [facility] Hemoglobin 8.7(L) 12.0 - 17.6 gm/dL 02/04/2019 8:35 AM CDT [facility] Hematocrit 30.0(L) 35.2 - 51.7 % 02/04/2019 8:35 AM CDT [facility] MCV 92.0 80.7 - 98.3 fl 02/04/2019 8:35 AM CDT [facility] MCH 26.7 26.7 - 34.0 pg 02/04/2019 8:35 AM CDT [facility] MCHC 29.0(L) 30.8 - 35.9 gm/dL 02/04/2019 8:35 AM CDT [facility] Platelet Count 212 153 - 416 x10E9/L 02/04/2019 8:35 AM CDT [facility] RDW-CV 15.9(H) 12.1 - 14.9 % 02/04/2019 8:35 AM CDT [facility] MPV 11.9 9.4 - 12.9 fl 02/04/2019 8:35 AM CDT [facility] Blood BLOOD SPECIMEN / Unknown Lab Venipuncture / Unknown 02/04/2019 7:37 AM CDT 02/04/2019 8:25 AM CDT Jason Blackburn MD LAB - HEMATOLOGY ORD ERABLES Performing Organization Address City/[facility]/ZIP Co de Phone Number [facility] [address], [place] [phone] * (ABNORMAL) URINALYSIS REFLEX MICROSCOPIC REFLEX CULTURE (02/04/2019 6:17 AM CDT) Color UA Yellow Straw, Yellow 02/04/2019 6:43 AM T [facility] Clarity UA Cloudy(A) Clear 02/04/2019 6:43 AM CDT [facility] Glucose UA Negative Negative 02/04/2019 6:43 AM [facility] Bilirubin UA Negative Negative 02/04/2019 6:43 AM T [facility] Ketone UA Trace(A) Negative 02/04/2019 6:43 AM T [facility] Specific [place] UA 1.021 1.005 - 1.030 02/04/2019 6:43 AM [facility] Blood UA Negative Negative 02/04/2019 6:43 AM [facility] pH UA 5.0 5.0 - 8.0 pH 02/04/2019 6:43 AM T [facility] Protein UA Negative Negative 02/04/2019 6:43 AM [facility] Urobilinogen UA Negative Negative mg/dL 02/04/2019 6:43 AM CDT [facility] Nitrite UA Negative Negative 02/04/2019 6:43 AM [facility] Leukocyte UA Negative Negative 02/04/2019 6:43 AM [facility] Urine Microscopy Urine microscopy not indicated 02/04/2019 6:43 AM [facility] Reflex Status Culture not indicated 02/04/2019 6:43 AM [facility] Urine URINE SPECIMEN OBTAINED BY CLEAN CATCH PROCEDURE / Unknown Collection / Unknown 02/04/2019 6:17 AM CDT 02/04/2019 6:24 AM CDT [facility] - 02/04/2019 6:43 AM CDT Ascorbic Acid can cause false negative urine strip tests for blood, glucose, nitrite, and bilirubin. Yasmany Oh MD LAB - URINALYSIS ORD ERABLES [facility] [address] [place] [id number] * (ABNORMAL) BASIC METABOLIC PANEL (CALCIUM TOTAL) (02/04/2019 2:34 AM CDT) Glucose 114(H) 74 - 106 mg/dL 02/04/2019 4:13 AM CDT [facility] Sodium 135(L) 136 - 145 mmol/L 02/04/2019 4:13 AM CDT [facility] Potassium 3.7 3.5 - 5.1 mmol/L 02/04/2019 4:13 AM CDT [facility] Chloride 106 98 - 107 mmol/L 02/04/2019 4:13 AM CDT [facility] CO2 21(L) 23 - 31 mmol/L 02/04/2019 4:13 AM CDT [facility] Calcium 8.6 8.4 - 10.2 mg/dL 02/04/2019 4:13 AM T [facility] Anion Gap 8 8 - 16 mmol/L 02/04/2019 4:13 AM CDT [facility] BUN 21 8.4 - 25.7 mg/dL 02/04/2019 4:13 AM CDT [facility] Creatinine 1.13 0.73 - 1.18 mg/dL 02/04/2019 4:13 AM CDT [facility] eGFR by MDRD >60 mL/min/1.7 3m2 02/04/2019 4:13 AM CDT [facility] eGFR by MDRD >60 mL/min/1.7 3m2 02/04/2019 4:13 AM CDT [facility] Blood BLOOD SPECIMEN / Unknown Lab Venipuncture / Unknown 02/04/2019 2:34 AM CDT 02/04/2019 3:32 AM CDT Michelle Pratt MD LAB - CHEMISTRY ORD ERABLES [facility] [address] [place] [address] * PRETEST TYPE & SCREEN (02/04/2019 2:34 AM CDT) ABO A 02/04/2019 4:07 AM CDT [facility] Rh Type Positive 02/04/2019 4:07 AM CDT [facility] Comment:History checked. Col lect retype. Antibody Screen Negative 02/04/2019 4:07 AM CDT [facility] Blood Bank BLOOD SPECIMEN / Unknown Lab Venipuncture / Unknown 02/04/2019 2:34 AM CDT 02/04/2019 3:34 AM CDT Jeffrey Angelo MD LAB - BLOOD BANK OR DERABLES Performing Organization Address [facility]/ZIP Co de Phone Number [facility] [address] [place], [place] [address] [phone] * (ABNORMAL) GLUCOSE - POINT OF CARE (02/03/2019 8:35 PM CDT) Glucose WB/POC 131(H) 70 - 106 mg/dL 02/03/2019 9:51 PM CDT [facility] Specimen Type Arterial/C apillary 02/03/2019 9:51 PM CDT [facility] Blood BLOOD SPECIMEN / Unknown 02/03/2019 8:35 PM CDT 02/03/2019 9:51 PM CDT Michelle Pratt MD LAB - POINT OF CARE ORDERABLES Performing Organization Address [facility] Co de Phone Number [facility] [address] [place] [id number] * (ABNORMAL) GLUCOSE - POINT OF CARE (02/03/2019 5:22 PM CDT) Pathologist [facility] Glucose WB/POC 114(H) 70 - 106 mg/dL 02/03/2019 7:05 PM CDT [facility] Specimen Type Arterial/C apillary 02/03/2019 7:05 PM CDT [facility] Blood BLOOD SPECIMEN / Unknown 02/03/2019 5:22 PM CDT 02/03/2019 7:05 PM CDT Michelle Pratt MD LAB - POINT OF CARE ORDERABLES Performing Organization Address [facility] Co de Phone Number [facility] [address] [place] [id number] * EKG 12-LEAD (02/03/2019 4:29 PM CDT) Ventricular Rate 81 BPM [facility] Atrial Rate 166 BPM [facility] QRS Duration ms 92 ms [facility] Q-T Interval ms 372 ms [facility] QTC Calculation (Bezet) 432 ms [facility] Calculated R [place] -6 degrees HC MUSE Calculated T [place] 25 degrees [facility] Interpretation EKG ATRIAL FIBRILLATION LOW VOLTAGE QRS SEPTAL INFARCT , AGE UNDETERMINED ABNORMAL ECG Confirmed by DO Campoverde Stephanie ([id number]) on 02/06/2019 9:13:20 AM [facility] 02/03/2019 4:29 PM CDT 02/06/2019 9:13 AM CDT Michelle Pratt MD ECG ORDERABLES Performing Organization Address City/[facility]/ZIP Co de Phone Number [facility] * (ABNORMAL) GLUCOSE - POINT OF CARE (02/03/2019 1:00 PM CDT) Glucose WB/POC 155(H) 70 - 106 mg/dL 02/03/2019 7:05 PM CDT [facility] Specimen Type Arterial/C apillary 02/03/2019 7:05 PM CDT [facility] Blood BLOOD SPECIMEN / Unknown 02/03/2019 1:00 PM CDT 02/03/2019 7:05 PM CDT Michelle Pratt MD LAB - POINT OF CARE ORDERABLES Performing Organization Address [facility] Co de Phone Number [facility] [address] [place] [address] * GLUCOSE - POINT OF CARE (02/03/2019 10:10 AM CDT) Glucose WB/POC 106 70 - 106 mg/dL 02/03/2019 7:05 PM CDT [facility] Specimen Type Arterial/C apillary 02/03/2019 7:05 PM CDT [facility] Blood BLOOD SPECIMEN / Unknown 02/03/2019 10:10 AM CDT 02/03/2019 7:05 PM CDT Michelle Pratt MD LAB - POINT OF CARE ORDERABLES [facility] [address] [place] [address] * XR FEMUR 2 VW RIGHT (02/03/2019 [...] - 2.2 mmol/L 02/03/2019 5:15 AM CDT [facility] Blood BLOOD SPECIMEN / Unknown Lab Venipuncture / Unknown 02/03/2019 4:13 AM CDT 02/03/2019 4:39 AM CDT Yasmany Oh MD LAB - CHEMISTRY ROYCE KLINE Performing Organization Address [facility] Co de Phone Number [facility] [address] [place], [place] [id number] * HEMOGLOBIN A1C (02/03/2019 1:06 AM CDT) Pathologist [facility] Hemoglobin A1c 5.8 4.0 - 6.1 % 02/03/2019 10:11 AM CDT [facility] Estimated Average Glucose 120 mg/dL 02/03/2019 10:11 AM CDT [facility] Blood BLOOD SPECIMEN / Unknown Lab Venipuncture / Unknown 02/03/2019 1:06 AM CDT 02/03/2019 1:16 AM CDT Michelle Pratt MD LAB - CHEMISTRY ORD ERABLES Performing Organization Address [facility] Co de Phone Number [facility] [address] [place] [address] * PT-INR (02/03/2019 1:06 AM CDT) [facility] PT 11.3 9.5 - 11.6 sec 02/03/2019 1:36 AM CDT [facility] INR 1.1 0.9 - 1.1 02/03/2019 1:36 AM CDT [facility] Blood BLOOD SPECIMEN / Unknown Lab Venipuncture / Unknown 02/03/2019 1:06 AM CDT 02/03/2019 1:16 AM CDT Narrative [facility] - 02/03/2019 1:36 AM CDT Conventional Warfarin Anticoagulant Therapy: INR Reference Range: ??2.0-3.0 Intensive Warfarin Anticoagulant Therapy: INR Reference Range: ? 2.5-3.5 Yasmany Oh MD LAB - COAGULATION OR DERABLES Performing Organization Address [facility] Co de Phone Number [facility] [address] [place], [place] [id number] * (ABNORMAL) COMPREHENSIVE METABOLIC PANEL (02/03/2019 1:06 AM CDT) Glucose 112(H) 74 - 106 mg/dL 02/03/2019 1:41 AM CDT [facility] Sodium 134(L) 136 - 145 mmol/L 02/03/2019 1:41 AM CDT [facility] Potassium 4.3 3.5 - 5.1 mmol/L 02/03/2019 1:41 AM CDT [facility] Chloride 101 98 - 107 mmol/L 02/03/2019 1:41 AM CDT [facility] CO2 25 23 - 31 mmol/L 02/03/2019 1:41 AM CDT [facility] Calcium 9.5 8.4 - 10.2 mg/dL 02/03/2019 1:41 AM CDT [facility] Anion Gap 8 8 - 16 mmol/L 02/03/2019 1:41 AM CDT [facility] BUN 19 8.4 - 25.7 mg/dL 02/03/2019 1:41 AM CDT [facility] Creatinine 1.22(H) 0.73 - 1.18 mg/dL 02/03/2019 1:41 AM T [facility] Alkaline Phosphatase 304(H) 40 - 150 U/L 02/03/2019 1:41 AM CDT [facility] ALT 21 13 - 61 U/L 02/03/2019 1:41 AM CDT [facility] AST 20 5 - 34 U/L 02/03/2019 1:41 AM T [facility] Protein Total 7.0 6.4 - 8.3 gm/dL 02/03/2019 1:41 AM T [facility] Albumin 3.1(L) 3.2 - 4.6 gm/dL 02/03/2019 1:41 AM T [facility] Bilirubin Total 1.0 0.2 - 1.2 mg/dL 02/03/2019 1:41 AM CDT [facility] eGFR by MDRD 59 mL/min/1.7 3m2 02/03/2019 1:41 AM CDT [facility] eGFR by MDRD >60 mL/min/1.7 3m2 02/03/2019 1:41 AM T [facility] Blood BLOOD SPECIMEN / Unknown Lab Venipuncture / Unknown 02/03/2019 1:06 AM CDT 02/03/2019 1:16 AM CDT Yasmany Oh MD LAB - CHEMISTRY ROYCE KLINE [facility] Organization Address City/State/ZIP Co de Phone Number [facility] [address] [place] [address] * (ABNORMAL) CBC W AUTO DIFFERENTIAL (02/03/2019 1:06 AM CDT) WBC 14.2(H) 4.4 - 10.7 x10E9/L 02/03/2019 1:22 AM CDT [facility] WBC Corrected 02/03/2019 1:22 AM CDT [facility] RBC 3.64(L) 3.80 - 5.40 x10E12/L 02/03/2019 1:22 AM CDT [facility] Hemoglobin 9.9(L) 12.0 - 17.6 gm/dL 02/03/2019 1:22 AM CDT [facility] Hematocrit 32.9(L) 35.2 - 51.7 % 02/03/2019 1:22 AM CDT [facility] MCV 90.4 80.7 - 98.3 fl 02/03/2019 1:22 AM CDT [facility] MCH 27.2 26.7 - 34.0 pg 02/03/2019 1:22 AM CDT [facility] MCHC 30.1(L) 30.8 - 35.9 gm/dL 02/03/2019 1:22 AM CDT [facility] Platelet Count 241 153 - 416 x10E9/L 02/03/2019 1:22 AM CDT [facility] RDW-CV 15.9(H) 12.1 - 14.9 % 02/03/2019 1:22 AM CDT [facility] MPV 12.1 9.4 - 12.9 fl 02/03/2019 1:22 AM CDT [facility] Neutrophils % 79.6(H) 44.0 - 73.0 % 02/03/2019 1:22 AM CDT [facility] Lymphocytes % 4.7(L) 20.0 - 43.0 % 02/03/2019 1:22 AM CDT [facility] Monocytes % 9.6 5.0 - 13.0 % 02/03/2019 1:22 AM CDT [facility] Eosinophils % 5.2 0.0 - 6.0 % 02/03/2019 1:22 AM CDT [facility] Basophils % 0.4 0.0 - 2.0 % 02/03/2019 1:22 AM CDT [facility] Immature Granulocytes 0.5 0 - 1 % 02/03/2019 1:22 AM CDT [facility] Neutrophil Absolute 11.28(H) 2.01 - 7.14 x10E9/L 02/03/2019 1:22 AM CDT [facility] Lymphocytes Absolute 0.66(L) 1.07 - 3.94 x10E9/L 02/03/2019 1:22 AM CDT [facility] Monocytes Absolute 1.36(H) 0.26 - 1.07 x10E9/L 02/03/2019 1:22 AM CDT [facility] Eosinophils Absolute 0.73(H) 0 - 0.47 x10E9/L 02/03/2019 1:22 AM CDT [facility] Basophils Absolute 0.05 0 - 0.08 x10E9/L 02/03/2019 1:22 AM CDT [facility] Immature Granulocytes Absolute 0.07(H) 0.00 - 0.06 x10E9/L 02/03/2019 1:22 AM CDT [facility] nRBC Auto 0 /100 WBC 02/03/2019 1:22 AM CDT [facility] Blood BLOOD SPECIMEN / Unknown Lab Venipuncture / Unknown 02/03/2019 1:06 AM CDT 02/03/2019 1:16 AM CDT Yasmany Oh MD LAB - HEMATOLOGY RAFFY [place] Performing Organization Address City/State/[facility] Co de Phone Number [facility] [address] [place] [address] * LACTIC ACID BLOOD (02/03/2019 1:06 AM CDT) [facility] Lactic Acid 0.8 0.5 - 2.2 mmol/L 02/03/2019 1:37 AM CDT [facility] Blood BLOOD SPECIMEN / Unknown Lab Venipuncture / Unknown 02/03/2019 1:06 AM CDT 02/03/2019 1:16 AM CDT Yasmany Oh MD LAB - CHEMISTRY ROYCE KLINE Performing Organization Address City/[facility]/ZIP Co de Phone Number [facility] [address] [place] [address] * CULTURE BLOOD (02/02/2019 10:38 PM CDT) Culture No growth day 5 UMESH 02/08/2019 2:31 AM CDT [facility] Blood PERIPHERAL BLOOD / Unknown Lab Venipuncture / Unknown 02/02/2019 10:38 PM CDT 02/02/2019 10:44 PM CDT Yasmany Oh MD LAB - MICROBIOLOGY O RIO Performing Organization Address [facility] Co de Phone Number [facility] [address] [place] [address], [facility] [phone] * CULTURE BLOOD (02/02/2019 10:38 PM CDT) Culture No growth day 5 [facility] 02/08/2019 2:31 AM CDT [facility] Blood PERIPHERAL BLOOD / Unknown Lab Venipuncture / Unknown 02/02/2019 10:38 PM CDT 02/02/2019 10:44 PM CDT Yasmany Oh MD LAB - MICROBIOLOGY O RIO Performing Organization Address [facility] Co de Phone Number [facility] [address] [place] [address], [facility] [phone] * LACTIC ACID BLOOD (02/02/2019 10:38 PM CDT) Lactic Acid 0.9 0.5 - 2.2 mmol/L 02/02/2019 11:00 PM CDT [facility] Blood BLOOD SPECIMEN / Unknown Lab Venipuncture / Unknown 02/02/2019 10:38 PM CDT 02/02/2019 10:44 PM CDT Yasmany Oh MD LAB - CHEMISTRY ROYCE KLINE Performing Organization Address City/[facility] Co de Phone Number [facility] [address] [place] [address] documented in this encounter Visit Diagnoses [...] Dose Rate Site 0.9% NaCl infusion at 75 mL/hr, Intravenous, CONTINUOUS, Starting on Tue02/02/19 at 2300, Until Tue02/04/19 at 1531 $ New Bag/Syringe 02/03/2019 8:01 PM CDT 75 mL/h r $ New Bag/Syringe 02/02/2019 11:55 PM CDT 75 mL /hr 0.9% NaCl injection 10 mL 10 mL, Intracatheter, EVERY 8 HOURS, 1095 doses, First dose on Tue02/12/19 at 0600, Last dose on Tue02/11/20 at 2200 $ Given 02/14/2019 5:09 AM CDT 10 mL $ Given 02/13/2019 9:52 PM CDT 10 mL $ Given 02/13/2019 4:47 PM CDT 10 mL 0.9% NaCl injection [...] if concentrated drips are infusing. $ Given 02/13/2019 9:52 PM CDT 10 mL 0.9% NaCl injection 10-40 mL 10-40 mL, Intracatheter, PRN, Other, PICC line flush, Starting on Tue02/13/19 at 1332, Until Tue02/15/19 at 2010, Flush each lumen of PICC with 10ml NS IVP before and after medication/solution administration for patency and blood return. Flush each lumen of PICC with 20 ml NS IVP after each infusion of blood products or lipids, and after each blood draw. $ Given 02/14/2019 2:24 PM CDT 10 mL acetaminophen (TYLENOL) tablet 650 mg 650 mg, Oral, EVERY 6 HOURS PRN, Fever, Mild Pain, Starting on Tue02/02/19 at 2220, Until Tue02/15/19 at 2010 $ Given 02/07/2019 12:25 PM CDT 650 [...] 02/14/2019 9:06 AM CDT 500 mg aspirin chew tablet 81 mg 81 mg, Oral, DAILY, First dose on Tue02/03/19 at 0900, Until Discontinued $ Given 02/07/2019 10:34 AM CDT 81 mg $ Given 02/06/2019 8:19 AM CDT 81 mg $ Given 02/05/2019 8:05 AM CDT 81 mg aspirin tablet 325 mg 325 mg, Oral, 2 TIMES DAILY, First dose on Tue02/08/19 at 2100, Until Discontinued $ Given 02/15/2019 10:26 AM CDT 325 mg $ Given 02/14/2019 8:49 PM CDT 325 mg $ Given 02/14/2019 9:05 AM CDT 325 mg baclofen (LIORESAL) tablet 10 mg 10 mg, Oral, 2 TIMES DAILY, 730 doses, First dose on Tue02/02/19 at 2245, Last dose on Tue02/02/20 at 0900 $ Given 02/04/2019 8:51 AM CDT 10 mg $ Given 02/03/2019 8:02 PM CDT 10 mg $ Given 02/03/2019 10:05 AM CDT 10 mg baclofen (LIORESAL) tablet 10 mg 10 [...] Given 02/14/2019 8:20 AM CDT 2 puffs ceFAZolin (ANCEF) 2,000 mg in 50 ml IVPB 2,000 mg (2 g), at 100 mL/hr, Intravenous, EVERY 8 HOURS, 3 doses, First dose on Tue02/08/19 at 1500, Last dose on Tue02/09/19 at 1000, Indication for anti-infective therapy: Surgical prophylaxis $ New Bag/Syringe 02/09/2019 1:06 PM CDT 2,000 mg 100 mL/hr $ New Bag/Syringe 02/09/2019 1:43 AM CDT 2,000 mg 100 mL /hr $ New Bag/Syringe 02/08/2019 6:02 PM CDT 2,000 mg 100 mL /hr cefepime (MAXIPIME) 2,000 mg in 0.9% NaCl 50 mL IVPB 2,000 mg (2 g), at 100 mL/hr, Intravenous, EVERY 8 HOURS, 21 doses, First dose on Tue02/02/19 at 2245, Last dose on Tue02/09/19 at 1600, Indication for anti-infective therapy: Suspected infection, Site of anti-infective therapy: Other, Other site of infection (free text): Sepsis Unknown Origin - Healthcare associated $ New Bag/Syringe 02/08/2019 9:35 AM CDT 2,000 mg 100 mL/hr $ New Bag/Syringe 02/08/2019 1:18 AM CDT 2,000 mg 100 mL /hr Current Rate 02/07/2019 4:19 PM CDT 100 mL/hr clotrimazole (LOTRIMIN AF) 1 % cream Topical, [...] Access, Starting on Tue02/03/19 at 0958, Until Kellen 02/15/19 at 2009, [...] 80 mg/dl. NOTIFY PROVIDER OF HYPOGLYCEMIC EVENT. enoxaparin (LOVENOX) injection 30 mg 30 mg, Subcutaneous, EVERY 12 HOURS, 6 doses, First dose on Tue02/05/19 at 0900, Last dose on Tue02/07/19 at 2100, (for prefilled syringes) do not expel air bubble from the syringe prior to the injection Remind Patient to not rub injection site. Could cause hematoma. $ Given 02/07/2019 8:36 PM CDT 30 mg Abdominal Tissue $ Given 02/07/2019 10:37 AM CDT 30 mg A bdominal Tissue $ Given 02/06/2019 8:26 PM CDT 30 mg Ab dominal Tissue fentaNYL (PF) (SUBLIMAZE) injection 25 mcg 25 mcg, Intravenous, EVERY 4 HOURS PRN, Severe Pain, Starting on Tue02/02/19 at 2217, Until Kellen 02/15/19 at 2009 $ Given 02/11/2019 4:04 AM CDT 25 mcg $ Given 02/09/2019 11:21 AM CDT 25 mcg $ Given 02/06/2019 11:08 AM CDT 25 mcg furosemide (LASIX) injection 20 mg 20 mg, Intravenous, ONCE, 1 dose, On 02/10/19 at 0900 $ Given 02/10/2019 8:56 AM CDT 20 mg furosemide (LASIX) injection 40 mg 40 mg, Intravenous, ONCE, 1 dose, On Tue02/07/19 at 0845 $ Given 02/07/2019 10:31 AM CDT 40 mg gentamicin (GARAMYCIN) 360 mg in 0.9% NaCl 100 mL IVPB 360 mg, at 200 mL/hr, Intravenous, PRE-OP ONCE, 1 dose, On Kellen 02/08/19 at 1100, Indication for anti-infective therapy: Surgical prophylaxis $ New Bag/Syringe 02/08/2019 10:38 AM CDT 360 mg 200 mL/hr glucagon (GLUCAGEN) injection 1 mg 1 mg, [...] 80 mg/dl. NOTIFY PROVIDER OF HYPOGLYCEMIC EVENT. HYDROmorphone (DILAUDID) injection 0.5 mg 0.5 mg, Intravenous, EVERY 5 MIN PRN, Severe Pain, 4 doses, Starting on 02/04/19 at 1212, Until 02/04/19 at 1524, Maximum total of 4 doses If patient reaches max total dose, please consult anesthesiologist prior to further administration of pain meds. Hold pain meds if there are signs of hypoventilation., PACU $ Given 02/04/2019 3:23 PM CDT 0.5 mg $ Given 02/04/2019 12:13 PM CDT 0.5 mg lactated ringers infusion at 125 mL/hr, Intravenous, CONTINUOUS, Starting on 02/04/19 at 1215, Until 02/05/19 at 0733, PACU $ New Bag/Syringe 02/05/2019 12:01 AM CDT 125 mL/hr $ New Bag/Syringe 02/04/2019 6:46 PM CDT 125 mL /hr Restarted 02/04/2019 4:35 PM CDT 125 mL/hr lactated ringers infusion at 50 mL/hr, Intravenous, CONTINUOUS, Starting on 02/05/19 at 0745, Until 02/12/19 at 1926, Post-op Restarted 02/11/2019 11:01 AM CDT 50 mL/hr Current Rate 02/11/2019 6:44 AM CDT 50 mL/hr $ New Bag/Syringe 02/11/2019 1:00 AM CDT 50 mL/ hr lactated ringers infusion at 125 mL/hr, Intravenous, CONTINUOUS, Starting on Kellen 02/08/19 at 1030, Until 02/10/19 at 0832 Current Rate 02/10/2019 6:54 AM CDT 125 mL/hr Current Rate 02/09/2019 11:39 PM CDT 125 mL/hr $ New Bag/Syringe 02/09/2019 8:23 PM CDT 125 mL /hr lactated ringers infusion at 125 mL/hr, Intravenous, CONTINUOUS, Starting on Tue02/08/19 at 1430, Until Tue02/08/19 at 1449, PACU $ New Bag/Syringe 02/08/2019 2:35 PM CDT 125 mL/hr lactated ringers IV bolus 500 mL, at 967.74 mL/hr, Administer over 31 Minutes, ONCE, 1 dose, On Tue02/04/19 at 1545 $ Bolus New Bag 02/04/2019 3:33 PM CDT 500 mL 967.74 mL/hr lactulose (CHRONULAC) solution 20 g 20 g, Oral, 3 TIMES DAILY PRN, Constipation, Starting on Tue02/07/19 at 1212, Until Tue02/15/19 at 2010 $ Given 02/14/2019 9:02 PM CDT 20 g $ Given 02/07/2019 12:25 PM CDT 20 g lidocaine (XYLOCAINE MPF) 1 % injection Intradermal, ONCE, 1 dose, On Tue02/13/19 at 1400, Use lidocaine intradermally to produce wheal to locally anesthetize site if patient has NKA to Lidocaine. $ Given 02/13/2019 1:39 PM CDT 2 mL Right Arm metoprolol succinate XL 24hr (TOPROL XL) tablet 25 mg 25 mg, Oral, DAILY, 365 doses, First dose on 02/03/19 at 0900, Last dose on Tue02/02/20 at 0900, May cut in half but do not crush or chew $ Given 02/04/2019 8:51 AM CDT 25 mg $ Given 02/03/2019 10:04 AM CDT 25 mg metoprolol tartrate (LOPRESSOR) tablet 25 mg 25 [...] Given 02/14/2019 9:06 AM CDT 15 mg ondansetron (ZOFRAN) injection 4 mg 4 mg, Intravenous, EVERY 6 HOURS PRN, Nausea/Vomiting, Starting on Tue02/02/19 at 2217, Until Tue02/15/19 at 2010, Administer over 2 to 5 minutes. $ Given 02/11/2019 10:11 AM CDT 4 mg $ Given 02/10/2019 11:37 AM CDT 4 mg $ Given 02/09/2019 9:21 AM CDT 4 mg oxyCODONE-acetaminophen (PERCOCET) 10-325 MG tablet 1 tablet 1 tablet, Oral, EVERY 4 HOURS PRN, Moderate Pain, Starting on Tue02/04/19 at 0910, Until Tue02/15/19 at 2010 $ Given 02/15/2019 1:26 AM [...] (MIRALAX) packet 17 g 17 g, Oral, DAILY PRN, Constipation, Starting on Tue02/04/19 at 1525, Until Tue02/06/19 at 1601, Mix in 8 ounces of water, juice, soda, coffee or tea prior to administration $ Given 02/06/2019 9:19 AM CDT 17 g polyethylene glycol 3350 (MIRALAX) packet 17 g 17 g, Oral, DAILY, First dose (after last modification) on 9/3/19 at 1200, Until Discontinued, Mix in 8 [...] Given 02/13/2019 4:49 PM CDT 600 mg scopolamine (TRANSDERM-SCOP) 1 patch 1 patch, Administer over 72 Hours, EVERY 72 HOURS, 122 doses, First dose on Tue02/06/19 at 1630, Last dose on Tue02/04/20 at 1630, Apply patch behind the ear, do not cut patch, only 1 patch should be worn at a time and remove old patch before applying new patch.This patch may contain metal and is not compatible with MRI. Notify radiology of patch location upon arrival to MRI. Each patch contains 1.5 mg scopolamine base and is formulated to deliver 1 mg of scopolamine over 72 hours. $ Applied 02/06/2019 8:25 PM CDT 1 patch Behind Right Ear senna-docusate (SENOKOT-S) tablet 2 tablet 2 tablet, Oral, DAILY, 365 doses, First dose on 02/04/19 at 1600, Last dose on Tue02/03/20 at [...] Nausea/Vomiting, Starting on Tue02/11/19 at 1335, Until Kellen 02/15/19 at 2009, IM use only; do not administer IV vancomycin (VANCOCIN) 2,250 mg in 0.9% NaCl 545 mL IVPB 2,250 mg, at 242.22 mL/hr, Intravenous, ONCE, 1 dose, On Tue02/02/19 at 2245, Refrigerate, Indication for anti-infective therapy: Suspected infection, Site of anti-infective therapy: Other, Other site of infection (free text): sepsis $ New Bag/Syringe 02/03/2019 2:05 AM CDT 2,250 mg 242.22 mL/hr vancomycin (VANCOCIN) IV dose per pharmacy Does [...] of anti-infective therapy: Bone/Joint $ New Bag/Syringe 02/13/2019 5:00 PM CDT 1,250 mg 200 mL/hr $ New Bag/Syringe 02/12/2019 3:44 PM CDT 1,250 mg 200 mL /hr vancomycin HCl [...] PM CDT 1,250 mg 200 mL /hr vancomycin HCl (VANCOCIN) 1,500 mg in 0.9% NaCl 500 mL IVPB 1,500 mg, at 333.33 mL/hr, Intravenous, EVERY 12 HOURS, 14 doses, First dose on 02/03/19 at 1400, Last dose on 02/10/19 at 0200, Next vancomycin level due at 1300 on 02/04/2019. Hold the following dose if the level is greater than 21 mcg/ml., Indication for anti-infective therapy: Suspected infection, Site of anti-infective therapy: Other, Other site of infection (free text): sepsis $ New Bag/Syringe 02/04/2019 1:05 AM CDT 1,500 mg 333.33 mL/hr $ New Bag/Syringe 02/03/2019 1:57 PM CDT 1,500 mg 333.33 mL/hr vancomycin HCl (VANCOCIN) 1,500 mg in 0.9% NaCl 500 mL IVPB 1,500 mg, at 333.33 mL/hr, Intravenous, ONCE, 1 dose, On Tue02/05/19 at 1000, Indication for anti-infective therapy: Documented infection, Site of anti-infective therapy: Bone/Joint Current Rate 02/05/2019 11:09 AM CDT 333.33 mL/hr $ New Bag/Syringe 02/05/2019 11:05 AM CDT 1,500 mg 333.3 3 mL/hr vancomycin HCl (VANCOCIN) 1,500 mg in 0.9% NaCl 500 mL IVPB 1,500 mg, at 333.33 mL/hr, Intravenous, ONCE, 1 dose, On Tue02/06/19 at 0800, Indication for anti-infective therapy: Suspected infection, Site of anti-infective therapy: Other, Other site of infection (free text): sepsis Current Rate 02/06/2019 9:19 AM CDT 333.33 mL/hr $ New Bag/Syringe 02/06/2019 9:15 AM CDT 1,500 mg 333.33 mL/hr vancomycin HCl (VANCOCIN) 1,500 mg in 0.9% NaCl 500 mL IVPB 1,500 mg, at 333.33 mL/hr, Intravenous, EVERY 24 HOURS, 23 doses, First dose on Tue02/07/19 at 0900, Last dose on Tue03/01/19 at 0900, Next vancomycin level due at 0900 on 02/12., Hold the following dose if the level is greater than 21 mcg/mL., Indication for anti-infective therapy: Documented infection, Site of anti-infective therapy: Bone/Joint $ New Bag/Syringe 02/11/2019 9:28 AM CDT 1,500 mg 333.33 mL/hr $ New Bag/Syringe 02/10/2019 10:38 AM CDT 1,500 mg 333.3 3 mL/hr Current Rate 02/09/2019 10:14 AM CDT 333.33 mL/ hr warfarin (COUMADIN) dose per pharmacy [facility] Other, DAILY AT 1700, 365 doses, First dose on Tue02/11/19 at 1700, Last dose on Tue02/10/20 at 1700, Call pharmacy daily for warfarin order if not already available. Do not delete or modify this order unless you are discontinuing warfarin!, Diagnosis requiring anticoagulation? chronic afib, INR GOAL: 2.0-2.5 warfarin (COUMADIN) tablet 4 mg 4 mg, Oral, ONCE WARFARIN, 1 dose, On Tue02/14/19 at 1700, . WASTE DISPOSAL INSTRUCTIONS: P-Listed item. Special Disposal Required. . $ Given 02/14/2019 5:46 PM CDT 4 mg warfarin (COUMADIN) tablet 5 mg 5 mg, Oral, ONCE WARFARIN, 1 dose, On Tue02/11/19 at 1700, . WASTE DISPOSAL INSTRUCTIONS: P-Listed item. Special Disposal Required. . $ Given 02/11/2019 5:33 PM CDT 5 mg warfarin (COUMADIN) tablet 5 mg 5 mg, Oral, ONCE WARFARIN, 1 dose, On Tue02/13/19 at 1700, . WASTE DISPOSAL INSTRUCTIONS: P-Listed item. Special Disposal Required. . $ Given 02/13/2019 4:50 PM CDT 5 mg warfarin (COUMADIN) tablet 5 mg 5 mg, Oral, ONCE WARFARIN, 1 dose, On Kellen 02/15/19 at 1700, . WASTE DISPOSAL INSTRUCTIONS: P-Listed item. Special Disposal Required. . $ Given 02/15/2019 6:10 PM CDT 5 mg warfarin (COUMADIN) tablet 6 mg 6 mg, Oral, ONCE WARFARIN, 1 dose, On 02/12/19 at 1700, . WASTE DISPOSAL INSTRUCTIONS: P-Listed item. Special Disposal Required. . $ Given 02/12/2019 5:33 PM CDT 6 mg zinc sulfate (ZINCATE) capsule 220 mg [...] duplicate row)1647 ($ Given - Provider: Efrain Rojas RN)2152 [...] Rojas RN - Reason: Documented on duplicate row)2152 ($ Given - Provider: Chris Carter RN) [...] RCP)1549 ($ Given - Provider: Citlalli Daniels RCP)2123 ($ Given - Provider: Lyndsay Kolb RCP) 0224 ($ Given - Provider: Lyndsay Kolb RCP)0820 ($ Given - Provider: Neva Ratliff RCP)1355 ($ Given - Provider: Neva Ratliff RCP)2019 ($ Given - Provider: Dru Magallon RCP) 0107 ($ Given - Provider: Dru Magallon RCP)0902 ($ Given - Provider: Citlalli Daniels RCP)1554 ($ Given - Provider: Vimal Bautista RCP) ascorbic acid (VITAMIN C) tablet 500 mg 500 mg, Oral, 2 TIMES DAILY, First dose on Tue02/02/19 at 2245, Until Discontinued 1027 ($ Given - Provider: Efrain Rojas RN)215 ($ Given - Provider: Chris Carter RN) 09 ($ Given - Provider: Cathy Baker RN)2048 ($ Given - Provider: Chris Carter RN) 1025 ($ Given - Provider: Gladis Pacheco RN) aspirin tablet 325 mg 325 mg, Oral, 2 TIMES DAILY, First dose on Tue02/08/19 at 2100, Until Discontinued 1026 ($ Given - Provider: Efrain Rojas RN)215 ($ Given - Provider: Chris Carter RN) 09 ($ Given - Provider: Cathy Baker RN)2048 [...] 1003 ($ Given - Provider: Citlalli Daniels RCP)2128 ($ Given - Provider: Lyndsay Kolb RCP) [...] Oral, DAILY, 365 doses, First dose on Tue02/03/19 at 0900, Last dose on Tue02/02/20 at [...] 09 ($ Given - Provider: Cathy Baker, DONTAE)204 ($ Given - Provider: Chris Carter RN) 1024 ($ Given - Provider: Gladis Pacheco RN) pantoprazole EC (PROTONIX) tablet 40 mg 40 mg, Oral, DAILY, First dose on Sat 19 at 0900, Until Discontinued, Do not crush, [...] Provider: Efrain Rojas RN - Reason: Refused-Patient) 09 ($ Given - Provider: Cathy Baker RN) [...] ($ Given - Provider: Gladis Pacheco, DONTAE) senna-docusate (SENOKOT-S) tablet 2 tablet 2 tablet, Oral, DAILY, 365 doses, First dose on Tue02/04/19 at 1600, Last dose on Tue02/03/20 at 0900 1026 ($ Given - Provider: Efrain Rojas RN) 0905 ($ Given - Provider: Cathy Baker, DONTAE) 1025 ($ Given - Provider: Gladis Pacheco, DONTAE) tamsulosin (FLOMAX) capsule 0.4 mg 0.4 mg, Oral, AT BEDTIME, 365 doses, First dose on Tue02/02/19 at 2245, Last dose on Tue02/01/20 at 2100, At the same time every day after a meal. Do not crush, chew 2152 ($ Given - Provider: Chris Carter RN) 2048 ($ Given - Provider: Zi Carter, RN) vancomycin (VANCOCIN) IV dose per pharmacy Does not apply, DIRECTED, Starting on Tue02/02/19 at 2212, Until Kellen 02/15/19 at 2010, Indication for anti-infective therapy: Suspected [...] ($ New Bag/Syringe - Provider: Efrain Rojas RN)2154 (Stopped - Provider: Chris Carter RN) vancomycin [...] Augustin RN) warfarin (COUMADIN) dose per pharmacy [facility] Other, [...] 1746 ($ Given - Provider: Cathy Baker, DONTAE) warfarin (COUMADIN) tablet 5 mg (COMPLETED) 5 [...] 1810 ($ Given - Provider: Gladis Pacheco, DONTAE) zinc sulfate (ZINCATE) capsule 220 mg 220 mg, Oral, DAILY, First dose on Tue02/03/19 at 0900, Until Discontinued 1027 ($ Given - Provider: Efrain Rojas RN) 0906 ($ Given - Provider: Cathy Baker, DONTAE) 1025 ($ Given - Provider: Gladis Pacheco, RN) PRN Medication Order 02/13/2019 02/14/2019 02/15/2019 0.9% NaCl injection 10-40 mL 10-40 mL, Intracatheter, PRN, Other, PICC line flush, Starting on Tue02/12/19 at 1726, Until Kellen 02/15/19 at 2010, Flush each lumen of PICC [...] Pain, Starting on Tue02/02/19 at 2217, Until Tue02/15/19 at 2009 glucagon (GLUCAGEN) injection 1 mg [...] difficulties, Starting on 02/03/19 at 0958, Until Tue02/15/19 at 2009, If able to eat and [...] on Tue02/07/19 at 1212, Until Tue02/15/19 at 2009 2102 ($ Given - Provider: [...] 02/04/19 at 0910, Until Kellen 02/15/19 at 2009 0543 ($ Given - Provider: Zbigniew Sandoval RN)1650 ($ Given - Provider: Efrain Rojas, DONTAE)2152 ($ Given - Provider: Chris Carter, DONTAE) 0126 ($ Given - Provider: Clarice Carver RN) trimethobenzamide (TIGAN) injection 200 mg 200 mg, Intramuscular, EVERY 6 HOURS PRN, Nausea/Vomiting, Starting on 02/11/19 at 1335, Until Kellen 02/15/19 at 2009, IM use only; do not administer IV documented in this encounter Additional Health Concerns Infection Onset Date Last Indicated Resolved Time 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
--- OUTSIDE RECORDS SUMMARY | 2024-05-24 23:39 | XMS_ITS | Encounter Summary ---
Author Organization [facility] Address [address] [place] [place] [address] Care Team Providers Care Vinyl Dipper Name Role Phone Briana Medeiros MD Primary Care Provider [phone] Reason for Visit * Auth/Cert Specialty Diagnoses / Procedures Referred By Contac t Referred To Contact Diagnoses Right hip infection Referral ID Status Reason Start Date Expiration Date Visits Re quested Visits Authorized [id number] 1 1 Encounter Details Date Type Department Care Team (Late st Contact Info) Description 02/08/2019 11:13 AM CDT Anesthesia Event [facility] [address] [place] [address] Josh Kimball DO [address] [place] [address] Nolvia Kilpatrick, POWER EQUIP[employer] MECHANICS INSTRUCTOR-CAMPAIGN MANAGEMENT SPECIALIST [address] [place] [address] Anesthesia Record Procedure Summary Procedure Name Responsible Anesthesiologist Anesthesia Start Time Anesthesia Stop Time REVISION HIP ARTHROPLASTY BOTH COMPONENT (Right: Hip) Josh Kimball DO 02/08/19 1113 02/08/19 1408 Events Date Time Event Comment 02/08/2019 1113 An Start 1113 An Start Data 1116 PT Reassessment 1117 Induction 1121 An Intubation 1151 Timeout Anesthesia part icipated in timeout at the time documented in the record by nursing. 1202 Handoff 1230 Handoff 1349 Extubation 1352 an stop data 1352 Electnc Sig 1352 ANPTO2 1408 An Stop Meds Name Total fentaNYL 250 mcg/5mL injection 200 mcg lidocaine 2% injection (20 mg/ml) 100 mg propofol 200mg/20mL injection 120 mg succinylcholine (ANECTINE) 100 mg/5 mL i njection 100 mg rocuronium 50mg/5mL injection 50 mg Phenylephrine HCl 10 MG/ML 1,000 mcg dexamethasone 4 mg/ml injection 4 mg ondansetron 4 mg/2mL injection 4 mg tranexamic acid (CYKLOKAPRON) injection 1,000 mg 2,000 mg ceFAZolin 2 g IVPB 2 g albuterol HFA inhaler 8 puff sugammadex 200 mg/2 mL injection 200 mg phenylephrine 10mg in 250ml NS (ANES samm es in OR) 0 mL lactated ringers infusion 800 mL * Agents Name Insp. N2O Exp. Sevoflurane Exp. N2O O2 Air Insp. Sevoflurane * Blood No blood administrations on file. Lines, Drains, and Airways Type Details Placement Removal Trach 09/13/17; 174; dr bermudez; Phoebe; Cuffed; 8 MM; 8.0 FR; 04/26/19 09/13/17 1745 by Yadira Taylor, DONTAE 04/26/19 0000 by Lexie Marquis [facility] Enteral - 09/15/17; 0915; Dr. Guerra; PEG; Abdomen, Left; Well; 10/28/23 (removed long ago); 204209/15/17 0915 by Denise Damon RN 10/28/232042 by Sonia Hunter RN Peripheral IV Date: 02/06/19; Time : 1613; Orientation: Left; Placed By: DONTAE Mclean; Tolerance: Moderate 02/06/19 161 by Caridad Bernstein RN 02/09/19 2200 by Cynthia Ibarra LPN Procedural Site (Incision) 02/08/19; Right; Hip; Right hip infection; 05/06/19; 202202/08/19 0000 by Karina Slaughter RN 05/06/192022 by Generic, Auto Release ETT Date: 02/08/19; Time : 1121; Placed By: Zbigniew Mayen APRN-CAMPAIGN MANAGEMENT SPECIALIST; Vent: easy mask; Induction: Modified Rapid Sequence; Blade Type: Juan; Blade Size: 3; Laryngoscopy View: Grade 1 (full cords); Intubation Adjuncts: Stylet; Tube: Endotracheal Tube; Placement: Oral; Tube Size(mm): 8 MM; Depth of Insertion: 22 CM; Measured From: lips; Attempts: 1; Cuff Infated: Air; Cuff Vol(mL): 8 mL; Verified By: Direct visualization, Bilateral breath sounds, CO2 Monitor 02/08/19 1121 by Zbigniew Mayen APRN-GUILLERMO 02/08/19 1349 by Zbigniew Mayen APRN-GUILLERMO Urethral Catheter 02/08/19; 1130; Lien Hensley RN; Straight-tip; No; 16; 10 mL; General Anesthesia; 02/08/19; 1500 02/08/19 1130 by Lien Hensley 02/08/19 1500 by Vasquez Saleh RN Procedural Site (Incision) 02/08/19; 1151; Right; Hip; 02/16/19; 0110 02/08/19 1151 by Lien Hensley 02/16/19 0110 by Jas, Auto Release documented in this encounter Social History Tobacco [...] as of this encounter Progress Notes * Josh Kimball DO - 02/08/2019 3:57 PM CDT ANESTHESIA POSTOP EVALUATION NOTE Procedure: REVISION HIP ARTHROPLASTY BOTH COMPONENT (Right Hip) EXCISION BURSA (BURSECTOMY) TROCHANTERIC/HIP (Right Hip) CLOSURE PRIMARY DELAYED/SECONDARY (ANY AREA) (Right Hip) Mason Keys is a 68 year old male Patient Vitals for the past 6 hrs: BP Temp Pulse Resp SpO2 Pain Rating Score #1 02/08/19 1358 90/63 97.7 ??F (36.5 ??C) -- -- -- 0 02/08/19 1400 90/63 -- 109 21 100 % -- 02/08/19 1405 114/85 -- (!) 112 26 100 % -- 02/08/19 1410 131/57 -- (!) 111 26 100 % -- 02/08/19 1415 128/65 -- 90 26 97 % 0 02/08/19 1420 137/70 -- 107 20 96 % -- 02/08/19 1425 110/73 -- 108 24 94 % -- 02/08/19 1430 131/78 -- 109 24 94 % 0 02/08/19 1435 122/67 97.7 ??F (36.5 ??C) -- -- 94 % -- 02/08/19 1449 115/62 97.9 ??F (36.6 ??C) (!) 110 18 96 % 0 Anesthesia Type: general Pre-op Diagnosis Codes: * Diagnosis unknown [R69] Mental Status: awake, alert, oriented, sufficiently recovered from acute administration of anesthesia to participate in the evaluation, neurologic status has returned to preoperative level and neurologic status has returned to expected level of consciousness Neuro Status: No numbess, tingling or visual disturbances Respiratory Function: natural Cardiac Function: stable Postop Pain: acceptable to the patient Postop Hydration: adequate Postop Nausea: none Assessment: no apparent anesthetic complications, patient tolerated procedure well and no evidence of recall Patient Disposition: Release from Anesthesia Care Non Reportable Improvement Section (otherwise blank): * Nolvia Kilpatrick APRN-CAMPAIGN MANAGEMENT SPECIALIST - 02/07/2019 8:45 AM CDT ANESTHESIA PREOPERATIVE EVALUATION NOTE Procedure: IRRIGATION AND DEBRIDEMENT POSSIBLE REVISION HIP ARTHROPLASTY (Right Hip) WOUND VAC EXCHANGE VERSUS CLOSURE (Hip) Vitals: No data found. 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 Alexander Previous Airway Management: ETT Placed: ETT Size: 8 Blade Type: MAC Grade: 2 Mask Airway: Easy Physical Exam: Orientation X3 Airway/Mallampati Score: II Mouth Opening Distance: 2.5 fingerwidths Neck ROM: limited Teeth: dentures/partials lower and dentures/partials upper (full upper dentures, partial lower, denies loose teeth) Heart: regular rate rhythm Lungs: normal Abdomen Exam: distended Physical Exam Additional Comments: Pt confused this AM - telephone consent obtained from Pt on baseline oxygen 2L/min and bipap at HS, history of trach 09/2017 Review of Systems: History of anesthetic complications: No Malignant Hyperthermia: No GERD: No Poor Exercise Tolerance: No Recent Chest Pain: No Shortness of Breath: Yes AICD/Pacemaker: No Renal Disease: No Diagnostic Tests: ECG(s) reviewed: Yes Echo(s) reviewed: Yes. Lab(s) reviewed: Yes. Other Findings: ecg 02/03/19 [...] Destination: PACU Anesthetic plan was discussed with: spouse ( [facility] telephone consent [phone]) Anesthetic Plan discussion was: Consented Use of blood products were discussed with: patient The patient's procedural Anesthetic Plan was discussed with the anesthesiologist. BMI, Height, Weight Tobacco History Estimated body mass index is 29.01 kg/m?? as calculated from the following: Height as of 8/30/19: 1.803 m (5' 11 ). Weight as of 02/02/19: 94.3 kg (208 lb). Social History Tobacco Use Smoking Status Former Smoker ??? Last attempt to quit: 06/06/1981 ??? Years since quittin.6 Smokeless Tobacco Never Used Alcohol History Drug History Social History Substance and Sexual Activity Alcohol Use No Social History Substance and Sexual Activity Drug Use No Outpatient Medications: Inpatient Medications: No outpatient medications have been marked as taking for the 02/08/19 encounter (Anesthesia Event) with Nolvia Kilpatrick APRN-CRNA. No current facility-administered medications for this visit. Facility-Administered Medications Ordered in Other Visits Medication Dose Last Dose ??? acetaminophen 650 mg 650 mg at 02/05/19 1632 ??? albuterol 2.5 mg 2.5 mg at 02/07/19 0107 ??? ascorbic acid 500 mg 500 mg at 02/06/192025 ??? aspirin 81 mg 81 mg at 02/06/19 08 ??? baclofen 10 mg 10 mg at 02/05/19 0805 ??? benzonatate 200 mg ??? bisacodyl 10 mg 10 mg at 02/06/19 1803 ??? budesonide-formoterol 2 puff 2 puff at 02/06/19 1951 ??? cefepime 2 g ??? cyanocobalamin 500 mcg 500 mcg at 02/06/19 08 ??? dextrose 25-50 mL ??? enoxaparin 30 mg 30 mg at 02/06/192025 ??? fentaNYL (PF) 25 mcg 25 mcg at 02/06/19 1108 ??? furosemide 40 mg ??? glucagon 1 mg ??? glucose (Diabetic Use) ??? lactated ringers Stopped at 02/07/19 0755 ??? morphine CR 12hr 15 mg 15 mg at 02/06/19 2024 ??? ondansetron 4 mg 4 mg at 02/06/19 1620 ??? oxyCODONE-acetaminophen 1 tablet 1 tablet at 02/07/19 0753 ??? pantoprazole EC 40 mg 40 mg at 02/06/19 0819 ??? polyethylene glycol 3350 17 g ??? scopolamine 1 patch 1 patch at 02/06/192024 And ??? scopolamine patch placement confirmation ??? senna-docusate 2 tablet 2 tablet at 02/06/19818 ??? tamsulosin 0.4 mg 0.4 mg at 02/06/192025 ??? vancomycin (VANCOCIN) IV dose per pharmacy ??? vancomycin 1,500 mg ??? zinc sulfate 220 mg 220 mg at 02/06/19818 Allergies: Allergies Allergen Reactions ??? Penicillins Skin Reactions and Swelling Relevant Problems Cardiovascular (+) Chronic atrial fibrillation (+) Venous insufficiency (chronic) (peripheral) (+) Acute kidney failure Other (+) Discitis [...] Psoriasis ??? Seizures ??? Squamous cell carcinoma Surgical History: Past Surgical History: Procedure Laterality Date ??? Cataract Removal Bilateral ??? ENDOSCOPY, UPPER N/A 09/15/2017 N/A; ESOPHAGOGASTRODUODENOSCOPY (EGD) DIAGNOSTIC ??? GENERAL SURGERY PROCEDURE Right 02/04/2019 Right; PLACEMENT WOUND VAC ??? HX JOINT REPLACEMENT ??? HX JOINT REPLACEMENT right hip 2006, left hip 2008 ??? INCISION AND DRAINAGE Right 02/04/2019 Right; IRRIGATION AND DEBRIDEMENT WOUND HIP ??? Tracheostomy N/A 09/13/2017 N/A; TRACHEOSTOMY Lab Results: Recent Labs Component Name 02/07/199 02/04/19 0737 WBC 10.0 - 10.6 HGB 8.0* - 8.7* HCT 27.5* - 30.0* PLTCOUNT 176 - 212 INR - - 1.0 PTT - - 26.4 - = values in this interval not displayed. Recent Labs Component Name 02/07/19 0409 SODIUM 135* POTASSIUM 4.3 CHLORIDE 104 CO2 23 BUN 17 CREATININE 1.20* Recent Labs Component Name 02/07/19 0409 02/03/19 0106 GLUCOSE 92 - 112* CALCIUM 9.0 - 9.5 ALT - - 21 AST - - 20 - = values in this interval not displayed. documented in this encounter Procedure Notes * Zbigniew Mayen, POWER EQUIPMENT MECHANICS INSTRUCTOR-CAMPAIGN MANAGEMENT SPECIALIST - 02/08/2019 11:44 AM CDTAssociated Order(s): ETT Placement Endotracheal Tube Placement: Patient Location: OR. Intubation Event Date/Time: 02/08/2019 11:21 AM Procedure: intubation (89556). Procedure Section: Sedation: under general anesthesia. Indications for Airway Management: anesthesia Induction: modified rapid sequence Patient Position: sniffing Mask Ventilation: easy. Blade Type: Juan Blade Size: 3 Laryngoscopy View: grade 1 (full cords) Intubation Adjuncts: stylet Device: endotracheal tube Placement: oral Tube type: endotracheal tube Tube Size (MM): 8 Depth of Insertion (CM): 22 Measured From: lips Cuff volume (mL): 8 Cuff Inflated With: air Number of Attempts: 1. Placement Verified By: direct visualization, bilateral breath sounds and CO2 monitor CXR Findings: ETT in proper place. Tube secured with: adhesive tape. Difficult Airway? No. Procedure Start Time: 02/08/2019 11:21 AM. Staff Section Anesthesia Provider: Zbigniew Mayen APRN-CRNA, Performed the procedure Provider #1: Jeffrey Angelo MD. documented in this encounter Miscellaneous Notes * Anesthesia Transfer of Care - Zbigniew Mayen APRN-CRNA - 02/08/2019 2:07 PM CDT ANESTHESIA TRANSFER OF CARE NOTE Today's Date: 02/08/2019 Date of : 1950 Patient: Mason Keys Procedure(s): REVISION HIP ARTHROPLASTY BOTH COMPONENT EXCISION BURSA (BURSECTOMY) TROCHANTERIC/HIP CLOSURE PRIMARY DELAYED/SECONDARY (ANY AREA) Surgeon(s): Primary: Larry Alexander MD Preop Diagnosis: Pre-op Diagnois: * Diagnosis unknown [R69] Pre-op Meds (From admission, onward) Start Stop Status Route Frequency Ordered 02/02/19 2220 acetaminophen (TYLENOL) tablet 650 mg -- Dispensed PO EVERY 6 HOURS PRN 02/02/19 22202/02/19 2215 albuterol (PROVENTIL;VENTOLIN) (2.5 MG/3ML) 0.083% nebulizer solution 2.5 mg -- Dispensed IN EVERY 6 HOURS 02/02/19220702/08/19 1202 albuterol HFA (PROVENTIL;VENTOLIN;PROAIR) 108 (90 Base) MCG/ACT inhaler -- Sent PRN 02/08/19 1203 02/02/19 2245 ascorbic acid (VITAMIN C) tablet 500 mg -- Dispensed PO 2 TIMES DAILY 02/02/19221502/03/19 0900 aspirin chew tablet 81 mg Note to Pharmacy: OP sig: Take 81 mg by mouth DAILY. -- Dispensed PO DAILY 02/02/19221502/04/19 1545 baclofen (LIORESAL) tablet 10 mg -- Dispensed PO 2 TIMES DAILY PRN 02/04/19 1530 02/06/19 1500 benzonatate (TESSALON) capsule 200 mg 02/05 1459 Verified PO 3 TIMES DAILY PRN 02/06/19 1600 02/06/19 1732 bisacodyl (DULCOLAX) suppository 10 mg 02/05 1731 Dispensed RE DAILY PRN 02/06/19 1732 02/02/19 2245 budesonide-formoterol (SYMBICORT) 160-4.5 MCG/ACT inhaler 2 puff -- Dispensed IN 2 TIMES DAILY 02/02/19221502/08/19 1100 ceFAZolin (ANCEF) 2,000 mg in 50 ml IVPB 02/08 2259 Verified IV PRE-OP ONCE 02/08/19 1011 02/08/19 1133 ceFAZolin (ANCEF) 2,000 mg in 50 ml IVPB -- Sent PRN 02/08/19 1150 02/03/19 0900 cyanocobalamin (VITAMIN B-12) tablet 500 mcg Note to Pharmacy: OP sig: Take 500 mcg by mouth once daily 02/02 0859 Dispensed PO DAILY 02/02/19221502/08/19 1153 dexamethasone (DECADRON) injection -- Sent IV PRN 02/08/19 1153 02/03/19 0958 dextrose IV 12.5-25 g -- Verified IV PRN 02/03/19 0958 02/08/19 1356 diphenhydrAMINE (BENADRYL) injection 25 mg -- Verified IV ONCE PRN 02/08/19 1356 02/05/19 0900 enoxaparin (LOVENOX) injection 30 mg 02/07 2036 Completed SC EVERY 12 HOURS 02/05/19 0733 02/08/19 1117 fentaNYL (PF) (SUBLIMAZE) injection -- Sent PRN 02/08/19 1152 02/02/19 221 fentaNYL (PF) (SUBLIMAZE) injection 25 mcg -- Dispensed IV EVERY 4 HOURS PRN 02/02/19 2217 02/08/19 1356 fentaNYL (PF) (SUBLIMAZE) injection 50 mcg -- Verified IV EVERY 3 MIN PRN 02/08/19 1356 02/08/19 1100 gentamicin (GARAMYCIN) 360 mg in 0.9% NaCl 100 mL IVPB 02/08 1108 Completed IV PRE-OP ONCE 02/08/19 0604 02/03/19 0958 glucagon (GLUCAGEN) injection 1 mg -- Verified IM PRN 02/03/19 0958 02/03/19 0958 glucose (Diabetic Use) oral gel 02/02 0957 Verified PO PRN 02/03/19 0958 02/08/19 1356 HYDROmorphone (DILAUDID) injection 0.5 mg -- Verified IV EVERY 5 MIN PRN 02/08/19 1356 02/08/19 1356 HYDROmorphone (DILAUDID) injection 0.5 mg -- Verified IV EVERY 5 MIN PRN 02/08/19 1356 02/05/19 0745 lactated ringers infusion 02/04 0344 Dispensed IV CONTINUOUS 02/05/19 0733 02/08/19 1030 lactated ringers infusion 02/07 1029 Verified IV CONTINUOUS 02/08/19 1015 02/08/19 1430 lactated ringers infusion -- Verified IV CONTINUOUS 02/08/19 1356 02/07/19 1212 lactulose (CHRONULAC) solution 20 g -- Dispensed PO 3 TIMES DAILY PRN 02/07/19 1212 02/08/19 1117 lidocaine (XYLOCAINE) 2 % injection -- Sent PRN 02/08/19 1152 02/07/19 2200 metoprolol tartrate (LOPRESSOR) tablet 25 mg 02/06 2059 Dispensed PO 2 TIMES DAILY 02/07/19 2146 02/04/19 2100 morphine CR 12hr (MS CONTIN) tablet 15 mg 02/03 2059 Dispensed PO EVERY 12 HOURS 02/04/19 1525 02/08/19 1356 naloxone (NARCAN) injection 0.04 mg -- Verified IV POST-OP MULTIPLE 02/08/19 1356 02/02/19 221 ondansetron (ZOFRAN) injection 4 mg -- Dispensed IV EVERY 6 HOURS PRN 02/02/19 2217 02/08/19 1356 ondansetron (ZOFRAN) injection 4 mg -- Verified IV ONCE PRN 02/08/19 1356 02/08/19 1249 Ondansetron HCl (ZOFRAN) injection -- Sent PRN 02/08/19 1249 02/04/19 0910 oxyCODONE-acetaminophen (PERCOCET) 10-325 MG tablet 1 tablet 02/03 0909 Dispensed PO EVERY 4 HOURS PRN 02/04/19 0910 02/03/19 0900 pantoprazole EC (PROTONIX) tablet 40 mg -- Dispensed PO DAILY 02/02/19 2216 02/08/19 1126 phenylephrine (ZULY-SYNEPHRINE) infusion -- Sent CONTINUOUS PRN 02/08/19 1147 02/08/19 1123 Phenylephrine HCl (ZULY-SYNEPHRINE) injection -- Sent IV PRN 02/08/19 1126 02/06/19 1200 polyethylene glycol 3350 (MIRALAX) packet 17 g -- Dispensed PO DAILY 02/06/19 1601 02/08/19 1118 propofol (DIPRIVAN) injection -- Sent PRN 02/08/19 1153 02/08/19 1129 rocuronium (ZEMURON) injection -- Sent IV PRN 02/08/19 1153 02/04/19 1600 senna-docusate (SENOKOT-S) tablet 2 tablet 02/03 0859 Dispensed PO DAILY 02/04/19 1525 02/08/19 1119 succinylcholine (ANECTINE) injection -- Sent PRN 02/08/19 1153 02/08/19 1328 sugammadex (BRIDION) injection -- Sent PRN 02/08/19 1328 02/02/19 2245 tamsulosin (FLOMAX) capsule 0.4 mg Note to Pharmacy: OP sig: Take 0.4 mg by mouth at bedtime 02/01 2059 Dispensed PO AT BEDTIME 02/02/19221502/08/19 06 tranexamic acid (CYKLOKAPRON) injection 1,000 mg 02/08 1311 Completed IV PRE-PROCEDURE ONCE 02/08/1960302/08/19614 tranexamic acid (CYKLOKAPRON) injection 1,000 mg 02/08 1814 Verified IV PRE-PROCEDURE ONCE 02/08/1960302/02/19 221 vancomycin (VANCOCIN) IV dose per pharmacy 03/01 235 Dispensed XX DIRECTED 02/02/19221202/07/19899 vancomycin HCl (VANCOCIN) 1,500 mg in 0.9% NaCl 500 mL IVPB 03/01 2359 Dispensed IV EVERY 24 HOURS 02/07/1972902/03/19 09 zinc sulfate (ZINCATE) capsule 220 mg -- Dispensed PO DAILY 02/02/192215 Post-op Diagnosis: * Diagnosis unknown [R69] . Allergies Allergen Reactions ??? Penicillins Skin Reactions and Swelling ??? Scopace [Scopolamine] Other and S[employer]IOR [employer] DEVELOPER Dysfunction delirium Vitals: Patient Vitals for the past 3 hrs: BP Temp Pain Rating Score #1 02/08/19 1358 90/63 97.7 ??F (36.5 ??C) 0 Lines, Drains, and Airways Type Details Placement Removal Enteral - 09/15/17; 914; Dr. Guerra; PEG; Abdomen, Left; Well 09/15/1715 by Denise Damon RN Peripheral IV 02/06/19; 1613; Left; Forearm; DONTAE Mclean; 22 Gauge ; Anatomical Landmarks; 2; None; Moderate 02/06/19 1613 by Caridad Bernstein RN ETT 02/08/19; 1121 (created via procedure documentation); EM Navarro CRNA; easy mask; Modified Rapid Sequence; Juan; 3; Grade 1 (full cords); Stylet; Endotracheal Tube; Oral; 8 MM; 22 CM; lips; 1; Air; 8 mL; Direct visualization, Bilateral breath sounds, CO2 Monitor; 02/08/19; 1349 02/08/19 1121 by Zbigniew Mayen APRN-CRNA 02/08/19 1349 by Zbigniew Mayen APRN-CRNA Intraprocedure I/O Totals Urine Output Urine 250 mL Anesthesia Other Output Estimated Blood Loss 400 mL lactated ringers infusion Volume infused 800 ml Patient Transfer Location: PACU Transport Airway: supplemental O2 and spontaneous respirations Complications: None Handoff Given? Yes [...] of report from the receiving PACUteam. SYDNIE Navarro documented in this encounter Plan of Treatment Upcoming Encounters Date Type Department Care Team (Late st Contact Info) Description 07/09/2024 12:30 PM POOL NURSE Office Visit [facility] - GI [address] [place] [address], [place] [id number] Twin Miller MD [address] [place] [address] [place] [address] 09/19/2024 2:00 PM CDT Office Visit [facility] - Orthopedic Surgery [address] [facility] [place] [address] Larry Alexander MD [address] [facility] [address] [place] [address] documented as of this encounter Procedures Procedure Name Priority Date/Time Associated Diagnosis Comments ENDOTRACHEAL TUBE NOTE Routine 02/08/2019 11:44 AM CDT documented in this encounter Results * ENDOTRACHEAL TUBE NOTE (02/08/2019 11:44 AM CDT) Narrative Zbigniew Mayen APRN-CRNA - 02/08/2019 11:44 AM CDT Zbigniew Mayen APRN-CRNA ? 02/08/2019 11:45 AM Endotracheal Tube Placement: ? Patient Location: OR. Intubation Event Date/Time: ??02/08/2019 11:21 AM Procedure: intubation (87641). Procedure Section: ?? Sedation: under general anesthesia. [...] Staff Section ?? Anesthesia Provider: Zbigniew Mayen APRN-CRNA, Performed the procedure Provider #1: Jeffrey Angelo MD. Jeffrey Angelo MD GENERAL ANESTHESIA ORDERABLES documented in this encounter Visit Diagnoses Not on filedocumented in this encounter Administered Medications Inactive Administered Medications - up to 3 most recent administrations Medication Order MAR Action Action Date Dose Rate Site albuterol HFA (PROVENTIL;VENTOLIN;PROAIR) 108 (90 Base) MCG/ACT inhaler PRN, Starting on Kellen 02/08/19 at 1202, Until Kellen 02/08/19 at 1408, Anesthesia Intra-op $ Given 02/08/2019 1:32 PM CDT 4 puffs $ Given 02/08/2019 12:02 PM CDT 4 puffs ceFAZolin (ANCEF) 2,000 mg in 50 ml IVPB PRN, Starting on Kellen 02/08/19 at 1133, Until Kellen 02/08/19 at 1408, Anesthesia Intra-op $ Given 02/08/2019 11:33 AM CDT 2 g dexamethasone (DECADRON) injection Intravenous, PRN, Starting on Kellen 02/08/19 at 1153, Until Kellen 02/08/19 at 1408, Anesthesia Intra-op $ Given 02/08/2019 11:53 AM CDT 4 mg fentaNYL (PF) (SUBLIMAZE) injection PRN, Starting on Kellen 02/08/19 at 1117, Until Kellen 02/08/19 at 1408, Anesthesia Intra-op $ Given 02/08/2019 12:54 PM CDT 50 mcg $ Given 02/08/2019 11:51 AM CDT 50 mcg $ Given 02/08/2019 11:17 AM CDT 100 mcg lactated ringers infusion at 50 mL/hr, Intravenous, CONTINUOUS, Starting on Tue02/05/19 at 0745, Until Tue02/12/19 at 1926, Post-op Restarted 02/11/2019 11:01 AM CDT 50 mL/hr Current Rate 02/11/2019 6:44 AM CDT 50 mL/hr $ New Bag/Syringe 02/11/2019 1:00 AM CDT 50 mL/ hr lidocaine (XYLOCAINE) 2 % injection PRN, Starting on Kellen 02/08/19 at 1117, Until Kellen 02/08/19 at 1408, Anesthesia Intra-op $ Given 02/08/2019 11:17 AM CDT 100 mg Ondansetron HCl (ZOFRAN) injection PRN, Starting on Kellen 02/08/19 at 1249, Until Kellen 02/08/19 at 1408, Anesthesia Intra-op $ Given 02/08/2019 12:49 PM CDT 4 mg phenylephrine (ZULY-SYNEPHRINE) infusion CONTINUOUS PRN, Starting on Kellen 02/08/19 at 1126, Until Kellen 02/08/19 at 1408, Anesthesia Intra-op $ New Bag/Syringe 02/08/2019 11:26 AM CDT Phenylephrine HCl (ZULY-SYNEPHRINE) injection Intravenous, PRN, Starting on Kellen 02/08/19 at 1123, Until Kellen 02/08/19 at 1408, Anesthesia Intra-op $ Given 02/08/2019 11:37 AM CDT 200 mcg $ Given 02/08/2019 11:35 AM CDT 200 mcg $ Given 02/08/2019 11:32 AM CDT 200 mcg propofol (DIPRIVAN) injection PRN, Starting on Kellen 02/08/19 at 1118, Until Kellen 02/08/19 at 1408, Anesthesia Intra-op $ Given 02/08/2019 11:18 AM CDT 120 mg rocuronium (ZEMURON) injection Intravenous, PRN, Starting on Kellen 02/08/19 at 1129, Until Kellen 02/08/19 at 1408, Anesthesia Intra-op $ Given 02/08/2019 11:57 AM CDT 20 mg $ Given 02/08/2019 11:29 AM CDT 30 mg succinylcholine (ANECTINE) injection PRN, Starting on Kellen 02/08/19 at 1119, Until Kellen 02/08/19 at 1408, Anesthesia Intra-op $ Given 02/08/2019 11:19 AM CDT 100 mg sugammadex (BRIDION) injection PRN, Starting on Kellen 02/08/19 at 1328, Until Kellen 02/08/19 at 1408, Anesthesia Intra-op $ Given 02/08/2019 1:28 PM CDT 200 mg tranexamic acid (CYKLOKAPRON) injection 1,000 mg 1,000 mg, Intravenous, PRE-PROCEDURE ONCE, 1 dose, On Kellen 02/08/19 at 0615, Do not inject more rapidly than 1 mL/min to avoid hypotension. 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
--- OUTSIDE RECORDS SUMMARY | 2024-05-24 23:40 | XMS_ITS | Encounter Summary ---
Author Organization [facility] Address [address] [place] [address] Care Team Providers Care Insurance Follow Up Rep Name Role Phone Briana Medeiros MD Primary Care Provider [phone] Reason for Visit * Auth/Cert Specialty Diagnoses / Procedures Referred By Contac t Referred To Contact Diagnoses Right hip infection Referral ID Status Reason Start Date Expiration Date Visits Re quested Visits Authorized [id number] 1 1 Encounter Details Date Type Department Care Team (Late st Contact Info) Description 02/04/2019 10:17 AM CDT - 02/04/2019 12:16 PM CDT Surgery [facility] PERIOPERATIVE [address] [place] [address] Larry Alexander MD [address] [address] IRRIGATION AND DEBRIDEMENT WOUND HIP Surgery Details Date/Time Status Location OR Service Patient Class Case Class Case Type Trauma Case? 02/04/2019 10:17 AM Posted [facility] MAIN OR OR 03 Orthopedics Inpatient Non-Urge nt Add On Panel 1 Procedure LRB Anes Op Region Wound Class Comments IRRIGATION AND DEBRIDEMENT W OUND HIP Right General Hip Dirty or Infected PLACEMENT WOUND VAC Right General Hip Clean Cont aminated Surgeon Surgeon Role Service Panel Larry Alexander MD Primary Orthopedics 1 Special Needs Shaheen Table, cement with gentamicinC Arm RESIDENT- Jason [phone] documented in this encounter Social History Tobacco [...] Sign Reading Time Taken Comments Blood Pressure 93/49 02/04/2019 12:15 PM CDT Pulse 91 02/04/2019 12:15 PM CDT Temperature 37.1 ??C (98.8 ??F) 02/04/2019 11:54 AM C DT Respiratory Rate 19 02/04/2019 12:15 PM CDT Oxygen Saturation 100% 02/04/2019 12:15 PM CDT Inhaled Oxygen Concentration - - [...] Discharge date: 02/15/2019 Admitting Physician: Lilly Jurado APRN-CERTIFIED ENERGY MANAGER Attending Physician: Poncho Cisneros MD Discharge Physician: [...] -Continue Symbicort Condition at discharge: good Disposition: prison facility Code Status At Discharge Full Code [...] mouth every 4 hours as needed Poncho iCsneros MD polyethylene glycol 3350 packet Commonly known [...] 4 hours as needed vitamin D (ergocalciferol) 47403 units capsule Commonly known as: DRISDOL Take 50,000 Units by mouth every 7 days STOP taking these medications bumetanide 0.5 MG tablet Commonly known as: BUMEX ELIQUIS 5 MG tablet Generic drug: apixaban ferrous sulfate 325 (65 FE) MG tablet lidocaine 5 % patch Commonly known as: LIDODERM metoprolol succinate XL 24hr 50 MG tablet Commonly known as: TOPROL XL nystatin 495187 UNIT/GM powder Commonly known as: MYCOSTATIN Oxygen [...] 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 ??No scrubbing aroundincision. ? Diogenes to be removed??at [address] Alexander ?? Call [phone] to schedule the first follow-up appointment with [...] Each 02/15/2019 04/01/2019 vitamin D, ergocalciferol, (DRISDOL) 45445 UNITS capsuleIndications:Ot her cirrhosis of liver (HCC) [...] and capped . Pt;s Ride him to [facility]. All the belonging handed over to patient. Called report to DONTAE Caballero. Gladis Pacheco RN 02/15/2019 8:05 PM * Mila Degroot MSW - 02/15/2019 3:52 PM CDT Facility Transfer Note Level of Care: Skilled Rehab Payor Source: Medicare Facility Name: (include name of person confirming admission): [facility]: [phone] (toño) [phone] ([place]) [place] Made Aware of Special Needs (if applicable): N/A RN Call Report to: [phone], 100 meek RN RN Fax D/C Orders to: [phone] Transportation: Family Certificate of Medical Necessity rationale: not applicable Date/time of transfer: 02/15/19, TBD Accepting MD: Clay Completed and Signed [id number] (if applicable): not applicable Family/Other Notified of Transfer (name/phone): Extended Emergency Contact Information Primary Emergency Contact: Trinity Keys Address: [address] [place] [address] [place] [address] [facility] Mobile Relation: Spouse Graphic Design Specialist needed? No Authorization Skilled Care: not applicable [...] DIET REGULAR Labs Recent Labs Component Name 02/15/1930602/14/19 0346 02/13/19 0440 PT 18.9* 18.3* 13.6* INR 1.9* 1.9* 1.3* Recent Labs Component Name 02/04/19 0737 09/10/17 0549 09/07/17 0428 PTT 26.4 29.7 32.8 Recent Labs Component Name 02/15/19 03002/14/19 0258 02/13/19 0440 HGB 7.4* 7.7* 7.6* HCT 25.0* 26.0* 25.1* PLTCOUNT 284 288 287 Recent Labs Component Name 02/03/19 0106 ALBUMIN 3.1* ALT 21 AST 20 TBIL 1.0 TPROT 7.0 No results for input(s): DDIMERMGL in the last 02522 hours. Warfarin Dose History Date INR Dose [...] hip arthroplasty infection Referring Physcian: Lilly Jurado APRN-JEANNIE Name: José Miguel Keys Age: [age] year [...] results for input(s): CDIFFTOXINAB in the last 56672 hours. No results for input(s): SEDRATE in the last 90010 hours. Recent Labs Component Name 08/15/17 0348 08/09/17 0745 08/05/17 0445 CRP 4.1* 32.0* 14.4* No results for input(s): CK in the last 20433 hours. .No results for input(s): VANCOTROUGH, VANCOPEAK, VANCSERIES in the last 34129 hours. Invalid input(s): VANCORAND Recent Labs Component [...] sed rate, C-reactive protein Fax results to [id number] Please be advised that part of this text was done using voice recognition software. Errors may havebeen missed upon review. Raysa Nevarez MD * Mila Degroot GELATIN MAKER UTILITY - 02/15/2019 12:14 PM CDT Social Work Progress Note Chart reviewed, this SW following today, work up and treatment is in progress, as per previous CM/SW notes, plan is: SNF. Pt would like to go to [facility]: [phone] (f) [phone]. SW made the referral and they are going to review for placement. SW will update once progress is made. 1551- Pt is accepted at [facility]: [phone] (f) [phone] and they can accept him today after he gets his IV vanc. Discharge Plan Disposition: SNF Transportation: Ambulance Anticipated Discharge Date: TBD Contacts: Extended Emergency Contact Information Primary Emergency Contact: Trinity Keys Address: [address] [place] [address] [place] [address] [facility] Mobile Relation: Spouse Graphic Design Specialist needed? No CHRIS Clifford 02/15/2019 12:14 PM [...] obtain a vancomycin level this evening 02/15 [id number]. Will continue to adjust and monitor. Nicole [...] Pulse: 97 85 78 86 Resp: 18 Temp: 98.1 ??F (36.7 ??C) 97.7 [...] Labs Component Name 02/14/19 0258 02/13/19 0440 02/12/195 10/10/18 1515 09/19/17 0243 09/18/17 0003 WBC [...] displayed. Recent Labs Component Name 02/14/19 0346 02/13/190 02/12/195 02/03/19 0106 09/06/17 1157 09/04/17 0447 SODIUM 141 142 139 - 134* - - - POTASSIUM 3.7 3.6 3.5 - 4.3 - 3.8 4.9* CHLORIDE 108* 106 105 - 101 - - - CO2 28 28 27 - 25 - 20* 27 BUN 18 17 19 - - 21 11 CREATININE 1.10 0.97 0.99 [...] results for input(s): MAGMGDL in the last 53994 hours. Recent Labs Component Name 09/19/17 0243 [...] whenever one becomes available. Poncho Cisneros MD [facility] Hospitalist 02/14/2019 7:02 PM * Neva [...] results for input(s): DDIMERMGL in the last 07651 hours. Warfarin Dose History Date INR Dose [...] mg po today 2. Daily INR Cheryl Mccoy, EliazarD 02/14/2019 1:28 PM * Raysa Nevarez MD - 02/14/2019 12:32 PM CDT Infectious Diseases Consult Note Patient's Primary Care Physician: Briana Medeiros MD Reason for Consultation: Right total hip arthroplasty infection Referring Physcian: Lilly Jurado APRN-CERTIFIED ENERGY MANAGER Name: José Miguel Keys Age: [age] year old 10 Seen yesterday Note not found in Epic Rifampin added D/w pt regarding possible side effects Exam Vitals: 02/14/19 0224 02/14/19 0624 02/14/19 0820 02/14/19 0859 BP: 145/81 114/62 Pulse: 89 79 83 97 Resp: Temp: 97.5 ??F (36.4 ??C) 98.1 ??F [...] results for input(s): CDIFFTOXINAB in the last 17519 hours. No results for input(s): SEDRATE in the last 49818 hours. Recent Labs Component Name 08/15/17 0348 08/09/17 0745 08/05/17 0445 CRP 4.1* 32.0* 14.4* No results for input(s): CK in the last 12266 hours. .No results for input(s): VANCOTROUGH, VANCOPEAK, VANCSERIES in the last 87738 hours. Invalid input(s): VANCORAND Recent Labs Component [...] review. Raysa Nevarez MD * Carlita Menendez, ASHWINI/LD - 02/14/2019 12:31 PM CDT Problem: Nutrient: [...] 0600 222 lb 9.6 oz (101 kg) [facility] 02/02/192124 208 lb (94.3 kg) [...] results for input(s): PREALBUMIN in the last 28958 hours. No data found. Skin/Wound: incision Last [...] hip arthroplasty infection Referring Physcian: Lilly Jurado APRN-CERTIFIED ENERGY MANAGER Name: José Miguel Keys Age: [age] year [...] 106 105 CO2 28 28 27 BUN 19 CREATININE 1.10 0.97 0.99 GLUCOSE 113* 106 114* CALCIUM 8.4 8.6 8.7 Recent Labs Component Name 02/03/19 0106 09/06/17 1157 09/04/17 0447 ALBUMIN 3.1* - - ALKPHOS 304* 204* 190* ALT 21 10 12 AST 20 21 27 TBIL 1.0 - - TPROT 7.0 - - No results for input(s): CDIFFTOXINAB in the last 87499 hours. No results for input(s): SEDRATE in the last 64580 hours. Recent Labs Component Name 08/15/17 0348 08/09/17 0745 08/05/17 0445 CRP 4.1* 32.0* 14.4* No results for input(s): CK in the last 54800 hours. .No results for input(s): VANCOTROUGH, VANCOPEAK, VANCSERIES in the last 38919 hours. Invalid input(s): VANCORAND Recent Labs Component [...] Shell MD - 02/14/2019 6:30 AM CDT [facility] Orthopedic Surgery Daily Progress Note José Miguel Keys, 68 year old, male : 1950 CSN: [id number] Primary Care Physician: Briana Medeiros MD - [...] INR's please fax results to clinic ( [facility], [phone] for [facility]) ?? Keep wound clean and dry. [...] tub soaks. No scrubbing around incision. ?? Gridley to be removed at [address] Alexander ?? Call [phone] to schedule the first follow-up appointment with Dr. Pecos in 3 weeks ?? Any questions or [...] data found. Recent Labs Component Name 02/13/19 04402/12/195 02/11/19 0242 10/10/18 1515 09/19/17 0243 09/18/17 [...] results for input(s): MAGMGDL in the last 21136 hours. Recent Labs Component Name 09/19/17 0243 [...] q24h ?? warfarin (COUMADIN) dose per pharmacy [facility], Other, QDay 1700 ?? zinc sulfate (ZINCATE) [...] DC to facility tomorrow Poncho Cisneros MD [facility] Hospitalist 02/13/2019 7:45 PM * Efrain Rojas RN - 02/13/2019 6:03 PM CDT Shift summary: patient up amb with walker, CHG bath done, appetite fair, PICC Line placed for IVABX, taught PICC line care, how to flush and supervisor carding ivabx . Patient thinking about taking patient with home health. demonstrated how to flush and disconnect pt from iv pump. Call light and phone within reach. * Fay Otero, GELATIN MAKER UTILITY - 02/13/2019 3:09 PM CDT Spoke with admission coordinator for [facility] who verified that the facility has a male bed available. Pt medical record faxed to [facility]. GELATIN MAKER UTILITY will continue to follow and coordinate d/c. CHRIS Herrera 02/13/2019 3:12 PM [phone] * Christina Hamilton, PT - 02/13/2019 1:23 PM CDT Attempted to see pt for PT treatment. Unable to complete visit secondary to patient having PICC line placed. Will attempt another time. Christina Hamilton, PT [phone] * Fay Otero, GELATIN MAKER UTILITY - 02/13/2019 11:37 AM CDT Spoke with admission coordinator for [facility] facility does not have a male bed available. Message left for admission coordinator for [facility] re: bed availability. GELATIN MAKER UTILITY will continue to follow and coordinate d/c. CHRIS Herrera 02/13/2019 11:43 AM [phone] * Zbigniew Sandoval RN - 02/13/2019 8:23 [...] results for input(s): DDIMERMGL in the last 66295 hours. Warfarin Dose History Date INR Dose [...] and redness of the region.He went to [facility] and workup there including CT of the right hip revealed suspected abscess for which he was transferred here for further evaluation by [facility] Orthopedics. Has history of MRSA [...] Pulse: 92 95 92 85 Resp: 16 18 Temp: 97.8 ??F (36.6 ??C) 98.4 [...] postop day 7. MSK: DELICIA Macias. Nl cattle trader appreciated. No cce, no erythema of surgical [...] PICC line and vancomycin for several weeks. Also to start rifampin. --continue present bowel regimen --avoid [...] wishes, and discussion with multidisciplinary care team (inspection manager, GELATIN MAKER UTILITY, CSN, Therapy services, Pharmacy, and airborne sensor specialist) the current recommendation for the most appropriate discharge destination at this time is: Inpt rehab vs Home Anticipated discharge date: Possible discharge tomorrow 02/13. Needs PICC line and chcf/insurance authorization Disposition: Due to medical issues in [...] and phone within reach. * Fay Otero, GELATIN MAKER UTILITY - 02/12/2019 3:23 PM CDT Case reviewed with RN/CM during afternoon huddle. PER huddle pt spouse requesting SNF placement at [facility] or [facility]. Message left for admission coordinators for [facility] and [facility] re: bed availability. GELATIN MAKER UTILITY will continue to follow and coordinate d/c. CHRIS Herrera 02/12/2019 3:26 PM [phone] * Maria Guadalupe Roberts RN - 02/12/2019 2:18 PM CDT Case Management Progress Note Anticipated level of care at discharge: Group Home - Skilled Facility Anticipated Discharge Date: Anticipated Discharge Date: 02/13/19 Transportation at Discharge: Family/Ambulance Comments: As documented by CM on 02/09, Spouse has chosen [facility] in [place], [place], or [facility] in [place]. Have asked Fay SUAZOW to initiate referrals for tentative discharge tmrw. Attempting to reach spouse to verify this remains the discharge plan. Maria Guadalupe Roberts RN [facility] X [phone] * Cheryl Mccoy PharmD - [...] results for input(s): DDIMERMGL in the last 00957 hours. Warfarin Dose History Date INR Dose [...] PharmD 02/12/2019 2:11 PM * Fay Otero, GELATIN MAKER UTILITY - 02/12/2019 12:24 PM CDT Case reviewed during huddle and MDR. RN/CM to f/u with pt spouse re:: SNF placement. GELATIN MAKER UTILITY will continue to follow and coordinate d/c. CHRIS Herrera 02/12/2019 12:25 PM [phone] * Christina Hamilton, PT - 02/12/2019 11:14 [...] Current Labs: Recent Labs Component Name 02/12/19 0315 02/11/19 0242 02/10/19 0318 BUN 19 21 20 CREATININE 0.99 1.00 1.16 WBC 9.3 10.3 10.1 Creatinine Clearance: Estimated Creatinine Clearance: 83.2 mL/min (based on SCr of 0.99 mg/dL). Vancomycin goal:Goal Tr 15-20 mcg/ml (Loading Dose) Vancomycin trough: 22.6 mcg/ml (02/12 @ 921) A/P Vancomycin level slightly elevated from desired therapeutic range. Will hold regimen for ~4 hours and reduce to Vancomycin 1250mg q24hr. Will obtain a vancomycin level on 02/15 at 1300. Will continue to monitor and adjust as appropriate. Brenden Ellis, PharmNia 02/12/2019 10:15 AM * Carlita Menendez, RD/LD - 02/12/2019 10:13 AM CDT Clinical Nutrition Patient was given education on importance of consuming consistent amount of Vit K in their diet. Written information was given using [facility] Vit K & Anticoagulant Therapy handout. Foods [...] to receive it. Will follow per protocol AICHA Hall 02/12/2019 10:14 AM * Leah Franklin RCP [...] results for input(s): DDIMERMGL in the last 41419 hours. Warfarin Dose History Date INR Dose (mg) Comments 02/11 1.0 5mg subtherapeutic Assessment Goal INR: 2.0 - 2.5. Today's INR is Subtherapeutic Risk factors for bleeding: none. Pertinent home medications: none Pertinent medications during hospitalization: none Plan 1. Warfarin dose: 5mg X 1 2. Daily INR 3. Bridging therapy with N/A Jesusita Bennett, Izzy 02/11/2019 3:22 PM * Alberto Shell MD - 02/11/2019 3:13 PM CDT Brief [...] week visit with Dr. Alexander ?? Call [phone] to schedule the first follow-up appointment with [...] Will continue to adjust and monitor. Constantino Gilliam PharmD 02/11/2019 1:40 PM * Kristie Martinez, PT [...] and redness of the region.He went to [facility] and workup there including CT of the right hip revealed suspected abscess for which he was transferred here for further evaluation by [facility] Orthopedics. Has history of MRSA [...] postop day 7. MSK: DELICIA Macias. Nl cattle trader appreciated. No cce, no erythema of surgical [...] wishes, and discussion with multidisciplinary care team (inspection manager, GELATIN MAKER UTILITY, CSN, Therapy services, Pharmacy, and airborne sensor specialist) the current recommendation for the most appropriate [...] this date. Standing posture flexed, with strong cattle trader on the walker. Pt required v/c for [...] Shell MD - 02/10/2019 11:30 AM CDT [facility] Orthopedic Surgery Daily Progress Note José Miguel Keys, 68 year old, male : 1950 CSN: [id number] Primary Care Physician: Briana Medeiros MD - [...] week visit with Dr. Alexander ?? Call [phone] to schedule the first follow-up appointment with [...] and redness of the region.He went to [facility] and workup there including CT of the right hip revealed suspected abscess for which he was transferred here for further evaluation by [facility] Orthopedics. Has history of MRSA bacteremia and epidural abscess as well. He is community dwelling living with his . Current symptoms: BM yesterday, incontinence noted. Pain is better. Confusion is better,answers faster as well. Nauseated still. No f/c overnight. Significantly fluid positive post op.([phone]). PE: Filed Vitals: 02/09/19 1635 02/09/19 2152 [...] No Si/Hi Skin: wound c/d/i. MSK: DELICIA Bilbipin. Nl cattle trader appreciated. No cce, no erythema of surgical site Recent Labs Component Name 02/10/1931702/09/19 02302/08/19 0256 SODIUM 139 137 137 POTASSIUM 3.8 4.3 3.8 CHLORIDE 105 102 103 CO2 26 25 27 BUN 20 20 20 CREATININE 1.16 1.23* 1.17 GLUCOSE 108* 119* 90 CALCIUM 9.0 8.9 9.3 Recent Labs Component Name 02/03/19 0106 ALBUMIN 3.1* ALT 21 AST 20 Recent Labs Component Name 02/10/1931702/09/1922902/08/19 0256 WBC 10.1 11.7* 8.9 HGB 7.9* [...] wishes, and discussion with multidisciplinary care team (inspection manager, GELATIN MAKER UTILITY, CSN, Therapy services, Pharmacy, and airborne sensor specialist) the current recommendation for the most appropriate discharge destination at this time is: Prison Facility (SNF) vs Home with HH Anticipated [...] per spouse Sathya Cheney , PT Ascom [phone] If this is the last Physical Therapy [...] and redness of the region.He went to [facility] and workup there including CT of the right hip revealed suspected abscess for which he was transferred here for further evaluation by [facility] Orthopedics. Has history of MRSA [...] 121/62 Pulse: 90 96 96 99 Resp: Temp: 97.8 ??F (36.6 ??C) 97.9 ??F [...] Skin: wound c/d/i. MSK: DELICIA Bilat. Nl cattle trader appreciated. No cce, no erythema of surgical [...] AST 20 Recent Labs Component Name 02/09/19 02302/08/19 0256 02/07/19 0409 WBC 11.7* 8.9 10.0 [...] wishes, and discussion with multidisciplinary care team (inspection manager, GELATIN MAKER UTILITY, CSN, Therapy services, Pharmacy, and airborne sensor specialist) the current recommendation for the most appropriate discharge destination at this time is: Prison Facility (SNF) vs Home with HH Anticipated [...] behind pt. Pt becomes anxious with sitting, RED CLIFF assist to reach hand back to chair, [...] prefer to be closer to home in [place] which wouldrequire SNF placement. OT Discharge Recommendations: Inpatient Rehab;Prison Facility If this is the last Occupational Therapy visit, this serves as the discharge summary. Autumn Graham, OT * Fay Otero GELATIN MAKER UTILITY - 02/09/2019 3:09 PM CDT Case reviewed with RN/CM during afternoon huddle. Per huddle pt spouse requesting SNF placement at [facility] (1st choice) and [facility] (2nd choice). Per huddle pt scheduled for a procedure next Tuesday. GELATIN MAKER UTILITY will refer pt to these facilities once his closer to d/c. CHRIS Herrera [phone] * Sathya Cheney, PT - 02/09/2019 2:44 [...] level rehab. Sathya Cheney , PT Ascom [phone] If this is the last Physical Therapy [...] - 02/09/2019 2:20 PM CDT Patient from [place], lives with his . Patient s/p debridement infected R hip prosthesis. Delayed primary closure, wound vac til closure; 4-5 days. Continue iv anbx, await new cx. Patient is traditional medicaire. Max assist x2 with mobility. Eligible for skilled rehab. Andra Oneill cm, spoke to re facilities in [place] for skill rehab. requested [facility] in [facility]. Anticipate discharge next week. Back up facility, if needed, [facility] in [place]. Will inform sw Fay chen rn/cm [phone] * Fay Otero, GELATIN MAKER UTILITY - 02/09/2019 11:26 AM CDT Case reviewed during morning huddle. RN/CM to discuss d/c options with pt spouse. GELATIN MAKER UTILITY will continueto follow and coordinate d/c. CHRIS Herrera [phone] * Sathya Cheney PT - 02/09/2019 11:14 AM CDT Attempted to see patient again for physical therapy. Unable to complete visit due to patient still feeling nauseated Will attempt to see patient at a later time/date as indicated Sathya Cheney PT ascom #[phone] * Sathya Cheney PT - 02/09/2019 9:13 AM CDT Attempted to see patient for physical therapy. Unable to complete visit due to patient vomiting andnurse requesting not to see at this time. Will attempt to see patient at a later time/date as schedule. Sathay Cheney, PT ascom #[phone] * Leah Franklin [...] Shell MD - 02/08/2019 2:04 PM CDT [facility] Orthopedic Surgery Postoperative Check José Miguel Keys, 68 year old, male : 1950 CSN: [id number] Admitted: 02/02/2019 8:57 PM Subjective Nausea/vomiting: none [...] and adjust dose per protocol. 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 Vitamin B12, zinc and vitamin C supplements [...] Pain affecting intake: No Estimated Needs: KCAL: 4447-7701(20-25 kcal/kg bw) Protein (g): 94-117(1.2-1.5 gm/kg iw) [...] results for input(s): PREALBUMIN in the last 25323 hours. No data found. PERTINENT MEDICATIONS FOR [...] 12:41 PM Ascom [phone] * Fay Otero, GELATIN MAKER UTILITY - 02/08/2019 11:16 AM CDT Case reviewed during morning huddle. Pt currently in OR today for I&D Right hip, possible component exchange, possible revision arthroplasty. GELATIN MAKER UTILITY will continue to follow and assist with [...] and redness of the region.He went to [facility] and workup there including CT of the right hip revealed suspected abscess for which he was transferred here for further evaluation by [facility] Orthopedics. Has history of MRSA [...] changes. No rashes, petechia, purpura. MSK: DELICIA Larrybipin. Nl cattle trader appreciated. Recent Labs Component Name 02/08/19 0256 02/07/19 0409 02/06/19 041 SODIUM 137 135* 136 POTASSIUM 3.8 4.3 4.7 CHLORIDE 103 104 106 CO2 27 23 23 BUN 20 17 17 CREATININE 1.17 1.20* 1.23* GLUCOSE 90 92 110* CALCIUM 9.3 9.0 8.8 Recent Labs Component Name 02/03/19 0106 ALBUMIN 3.1* ALT 21 AST 20 Recent Labs Component Name 02/08/19 0256 02/07/19 0409 02/06/19 041 WBC 8.9 10.0 9.1 HGB 8.9* 8.0* [...] wishes, and discussion with multidisciplinary care team (inspection manager, GELATIN MAKER UTILITY, CSN, Therapy services, Pharmacy, and airborne sensor specialist) the current recommendation for the most appropriate discharge destination at this time is: Prison Facility (SNF) vs Home with HH Anticipated discharge date: 02/12-02/13 Disposition: Due to medical issues in the assessment and plan, continued hospitalization will be required. Blaire Meek MD Note is dictated utilizing voice recognition software. Unfortunately this leads to occasional typographical errors. I apologize in advance if the situation occurs. If questions occur please contact me for clarification. * Alberto Shell MD - 02/08/2019 6:04 AM CDT Images from the original note were not included. [facility] Orthopedic Surgery Daily Progress Note 02/08/2019 José Miguel Keys, 68 year old, male : 1950 CSN: [id number] - Admission Date/Time: 02/02/2019 8:57 PM -Today's [...] Procedure Component Value - Date/Time CULTURE ANAEROBE [[id number]] (Normal) Collected: 02/04/19 1129 Lab Status: Preliminary result Specimen: Micro from Hip Updated: 02/06/19 0634 Culture Culture in progress Narrative: Surgical Description: Right Hip CULTURE WOUND+GRAM STAIN [[id number]] (Abnormal) (Susceptibility) Collected: 02/04/191128 Lab Status: Final [...] Susceptible 1 ug/mL UMESH Final CULTURE ANAEROBE [[id number]] (Normal) Collected: 02/04/191128 Lab Status: Preliminary result Specimen: Micro from Hip Updated: 02/06/19 0634 Culture Culture in progress Narrative: Surgical Description: Right Hip CULTURE TISSUE+GRAM STAIN [[id number]] (Abnormal) (Susceptibility) Collected: 02/04/191128 Lab Status: Final [...] Susceptible 1 ug/mL UMESH Final CULTURE BLOOD [[id number]] Collected: 02/02/192237 Lab Status: Final result Specimen: Blood Peripheral Updated: 02/08/19230 Culture No growth day 5 CULTURE BLOOD [[id number]] Collected: 02/02/192237 Lab Status: Final result Specimen: [...] mg by mouth once daily nystatin (MYCOSTATIN) 611761 UNIT/GM powder APPLY TO AFFECTED AREA TWICE [...] mouth once daily vitamin D, ergocalciferol, (DRISDOL) 52887 UNITS capsule Take 50,000 Units by mouth [...] cardiac tele for rate control * Caridad Bernstein, RN - 02/07/2019 7:10 PM CDT Pt [...] may change. Sathya Cheney , PT Ascom 7533 If this is the last Physical Therapy [...] living situation Sathya Cheney , PT Ascom 0921 If this is the last Physical Therapy [...] appropriate discharge plan. Maria Guadalupe Roberts RN [facility] X [phone] * Fay Otero GELATIN MAKER UTILITY - 02/07/2019 11:57 AM CDT Pt scheduled for OR on 02/08/19. PER rounds pt may need some level of rehab. GELATIN MAKER [employer]ILITY will continue to follow and coordinate d/c. [...] surgical procedure Sathya Cheney , PT Ascom [phone] If this is the last Physical Therapy [...] Shell MD - 02/07/2019 9:41 AM CDT [facility] Orthopedic Surgery Daily Progress Note José Miguel Keys, 68 year old, male : 1950 CSN: [id number] Primary Care Physician: Briana Medeiros MD - [...] and redness of the region.He went to [facility] and workup there including CT of the right hip revealed suspected abscess for which he was transferred here for further evaluation by [facility]. Has history of MRSA bacteremia and [...] Pulse: 77 96 100 89 Resp: 16 18 18 20 Temp: 97.6 ??F (36.4 ??C) 99 ??F (37.2 ??C) 98 ??F (36.7 ??C) TempSrc: Oral Axillary Oral SpO2: 98% 96% 98% 98% Weight: Height: I/O/T/U: 3358/1075/2283/[id number]. Gen:ASA, mild distress. Does not appear in pain. Oriented to self, month HEENT: NCAT CV: RRR, No m/g/r, no ectopy Carol: No adventitial sounds or wheezes, basilar crackles improved with cough Abd: benign Neuro: nonfocal; proprioception, gait not tested. Reflexes intact Psych: approp. No Si/Hi Skin: nl, senescent changes. No rashes, petechia, purpura. MSK: DELICIA Bilat. Nl cattle trader appreciated. Recent Labs Component Name 02/07/1940802/06/1941802/05/19 0238 [...] wishes, and discussion with multidisciplinary care team (inspection manager, GELATIN MAKER [employer], CSN, Therapy services, Pharmacy, and airborne sensor specialist) the current recommendation for the most appropriate discharge destination at this time is: [facility]) Anticipated discharge date: TBD Disposition: [...] normal or improving Outcome: Ongoing * Sathya Cheney PT - 02/06/2019 5:21 PM CDT Treatment [...] returns home Sathya Cheney , PT Ascom 1154 If this is the last Physical Therapy visit, this serves as the discharge summary. * Sathya Cheney, PT - 02/06/2019 5:13 PM CDT Treatment session : 2:45-3:00 pm Subjective: Pleasant , alert, receptive and requesting to use the commode Physical Therapy Treatment Summary for today: Pain Rating and Location: 8/10 R hip Transfer training Sit to Stand: [...] living situation Sathya Cheney , PT Ascom 5345 If this is the last Physical Therapy [...] living situation Sathya Cheney , PT Ascom 4509 If this is the last Physical Therapy visit, this serves as the discharge summary. * Satyha Cheney, PT - 02/06/2019 3:10 PM CDT [...] Chief Complaint: Right hip pain swelling Insurance: Medicare/[employer] Family Support (name and phone): Extended Emergency Contact Information Primary Emergency Contact: Trinity Keys Address: [address] [place] [address] [place] [address] [facility] Relation: Spouse Graphic Design Specialist needed? No Anticipated Discharge Date: 02/15/19 Anticipated level of care at discharge: Unknown SNF vs HHC Prior Level of Functioning: dependent on spouse as caregiver Equipment at Home: Equipment At Home: Commode-Bedside;Walker-2 Wheeled;Walker-4 Wheeled with Seat;Wheelchair-Standard Additional Equipment needed at home (does not have at home now): PCP: Waldemar Pharmacy benefit: Yes Discharge Medication Needs: SW Referral: Yes, Fay GELATIN MAKER [employer] aware/following Transportation home: tbd Transportation to MD appointments: Transportation to Appointments: Family Home Care recommended and order obtained: If needed at discharge will need order entered in [facility] If patient requires HHC at discharge, he/she requests: patient choice Comments: s/p right hip irrigation and debridement, placement of antibiotic beads, and wound vacuumapplication , IV abts, pt/ot, pain control. BNA: 11 DATA OPERATIONS DIRECTOR: 7 Will continue to follow. For any questions or needs please contact: Crane Operator Name/Phone number: Maria Guadalupe Roberts RN [facility] X [phone], If this is the last vocational case managerretail banking manager this note serves as discharge summary * aFy Otero MSW - 02/06/2019 11:33 AM CDT Case reviewed during MDR rounds. Pt scheduled for OR on 02/08/19. PER rounds pt may need some level of rehab. G[employer]IN MAKER [employer] will continue to follow and coordinate d/c. * Blaire Meek MD - 02/06/2019 7:20 AM CDT 02/06/2019 7:20 AM Admitted: 02/02/2019 8:57 PM HD: 4 CC: Right hip pain Summary:??68 year old??white male with hx CAD, atrial fibrillation, prior DVT, COPD, cirrhosis, OSAwho presents with 1 week of right hip pain with associated swelling and redness of the region.He went to [facility] and workup there including CT of the right hip revealed suspected abscess for which he was transferred here for further evaluation by [facility] Orthopedics. Has history of MRSA [...] Pulse: 94 94 95 78 Resp: 18 18 25 22 Temp: 98 ??F (36.7 ??C) 98.3 [...] rashes, petechia, purpura. MSK: DELICIA Bilat. Nl cattle trader appreciated. Recent Labs Component Name 02/06/1941802/05/19 0238 02/04/19 0234 SODIUM 136 136 135* POTASSIUM [...] wishes, and discussion with multidisciplinary care team (inspection manager, GELATIN MAKER UTILITY, CSN, Therapy services, Pharmacy, and airborne sensor specialist) the current recommendation for the most appropriate discharge destination at this time is: [facility] (SNF) Anticipated discharge date: TBD Disposition: Due to medical issues in the assessment and plan, continued hospitalization will be required. Blaire Meek MD Note is dictated utilizing voice recognition software. Unfortunately this leads to occasional typographical errors. I apologize in advance if the situation occurs. If questions occur please contact me for clarification. * Larry Alexander MD - 02/06/2019 6:39 AM CDT [facility] Orthopedic Surgery Daily Progress Note José Miguel Keys, 68 year old, male : 1950 CSN: [id number] Primary Care Physician: Briana Medeiros MD - [...] Admit date: 02/02/2019 Admitting Physician: Lilly Jurado APRN-CERTIFIED ENERGY MANAGER Attending Physician: Michelle Pratt MD IP/Observation: Inpatient [...] vision loss, dizziness, dysuria. He went to [facility] and workup thereincluding CT of the right hip revealed suspected abscess for which he was transferred here for further evaluation by [facility]. The patient was given IV vanc and cefepime and pain meds and transferred here for evaluation by [facility] Orthopedics. Of note the patient [...] 0.05 - - Recent Labs Component Name 02/05/198 02/04/19 02302/03/19 0106 SODIUM 136 135* 134* POTASSIUM 4.2 [...] results for input(s): SEDRATE in the last 40090 hours. Recent Labs Component Name 08/15/17 0348 08/09/17 0745 08/05/17 0445 CRP 4.1* 32.0* 14.4* No results for input(s): TROPONIN in the last 87362 hours. No results for input(s): DDIMER in the last 28672 hours. Recent Labs Component Name 07/24/17 0508 [...] any specific number. He was seen at [facility] yesterday and found to be tachycardic and so was started on broad spectrum antibiotics. They also obtained a pelvis xray and CT of right femur He notably has had bilateral ARNALDO performed with the right performed in 2005 and the left in 2010. No complaints on the left ARNALDO. His primary surgeon has since moved to [place] according to the patient. Dr. Amos at [facility] did not feel comfortable managing this patient. The patient has prior history of MRSA with an epidural abscess treated surgically 2017 at [facility]. He also has afib for which he is on xarelto and a history of a MT. He has VALENTINA and wears a CPAP [...] age;Processing-Appropriate Participation: Active Participation Precautions: NWB R GENNA Fall Risk Strength: L LE WFL : [...] Acute rehab vs SNF level rehab vs HH PT. If this is the last PT [...] min a Outcome: Ongoing * Jonny Reynolds, [facility] - 02/05/2019 8:55 AM CDT Vancomycin [...] Procedure Component Value - Date/Time CULTURE ANAEROBE [[id number]] Collected: 02/04/191128 Lab Status: In process Specimen: Micro from Hip Updated: 02/04/19 1208 CULTURE WOUND+GRAM STAIN [[id number]] Collected: 02/04/191128 Lab Status: Preliminary result Specimen: Micro from Hip Updated: 02/04/19 222 Gram Stain Heavy Polymorphonuclear cells Moderate Red blood cells No organisms seen Narrative: Surgical Description: Right Hip CULTURE ANAEROBE [[id number]] Collected: 02/04/191128 Lab Status: In process Specimen: Micro from Hip Updated: 02/04/19 1208 CULTURE TISSUE+GRAM STAIN [[id number]] Collected: 02/04/191128 Lab Status: Preliminary result Specimen: Micro from Hip Updated: 02/04/192237 Gram Stain Moderate Polymorphonuclear cells Heavy Red blood cells No organisms seen Narrative: Surgical Description: Right Hip CULTURE BLOOD [[id number]] Collected: 02/02/192237 Lab Status: Preliminary result Specimen: Blood Peripheral Updated: 02/05/19 0230 Culture No growth CULTURE BLOOD [[id number]] Collected: 02/02/192237 Lab Status: Preliminary result Specimen: Blood Peripheral Updated: 02/05/19 0230 Culture No growth Physical Exam General appearance: [...] pain med is needed. * Jonny Reynolds, [facility] - 02/04/2019 2:42 PM CDT Vancomycin [...] 10/10/18 1515 09/19/17 0243 BUN - 21 - CREATININE - 1.13 1.22* - 0.6 WBC [...] random 12 hours from now. Alexandria Haines, Izzy Vancomycin Dosing Protocol S/O: Vancomycin trough level [...] Admit date: 02/02/2019 Admitting Physician: Lilly Jurado APRN-CERTIFIED ENERGY MANAGER Attending Physician: Michelle Pratt MD IP/Observation: Inpatient PCP: Briana Medeiros MD ASSESSMENT AND PLAN: Sepsis POA due to Infected right ARNALDO Plan is for right hip irrigation and debridement, placement of antibiotic beads, wound VAC application on February 04--> saw him after the procedure Revised cardiac index score: 6.0 %: 30-day risk of , MT, or cardiac arrest EKG no new changes, [...] vision loss, dizziness, dysuria. He went to [facility] and workup thereincluding CT of the right hip revealed suspected abscess for which he was transferred here for further evaluation by [facility] Orthopedics. The patient was given IV vanc and cefepime and pain meds and transferred here for evaluation by [facility]. Of note the patient [...] results for input(s): SEDRATE in the last 08166 hours. Recent Labs Component Name 08/15/17 0348 08/09/17 0745 08/05/17 0445 CRP 4.1* 32.0* 14.4* No results for input(s): TROPONIN in the last 91152 hours. No results for input(s): DDIMER in the last 05068 hours. Recent Labs Component Name 07/24/17 0508 04/23/17 1103 TSH 2.518 1.64 Recent Labs Component Name 02/03/19 0106 07/14/17 2212 HGBA1C 5.8 6.3 Recent Labs Component Name 02/04/19 0737 02/03/19 0106 05/07/19 1515 INR 1.0 1.1 1.1 Recent Labs [...] Procedure Component Value - Date/Time CULTURE BLOOD [[id number]] Collected: 02/02/192237 Lab Status: Preliminary result Specimen: Blood Peripheral Updated: 02/04/19 0230 Culture No growth 24 hours CULTURE BLOOD [[id number]] Collected: 02/02/192237 Lab Status: Preliminary result Specimen: [...] by mouth once daily ??? nystatin (MYCOSTATIN) 033282 UNIT/GM powder APPLY TO AFFECTED AREA TWICE [...] once daily ??? vitamin D, ergocalciferol, (DRISDOL) 73083 UNITS capsule Take 50,000 Units by mouth [...] touch and edematous. Voiding perurinal. NPO since MA for surgery today. CHG skin wash done. [...] Admit date: 02/02/2019 Admitting Physician: Lilly Jurado APRN-CERTIFIED ENERGY MANAGER Attending Physician: Michelle Pratt MD IP/Observation: Inpatient PCP: Briana Medeiros MD ASSESSMENT AND PLAN: Sepsis POA due to Infected right ARNALDO Plan is for right hip irrigation and debridement, placement of antibiotic beads, wound VAC application on February 04 Revised cardiac index score: 6.0 %: 30-day risk of , MT, or cardiac arrest EKG no new changes, Afib with controlled rate Continue IV abx Vanc I will monitor Vanc trough levels and renal function for this pt Chronic Afib Stable Rate controlled DM2 SSI and accuchecks COPD Stable Hyponatremia Mild VLAENTINA on CPAP ANTICIPATED D/C: TBD Personally discussed [...] vision loss, dizziness, dysuria. He went to [facility] and workup thereincluding CT of the right hip revealed suspected abscess for which he was transferred here for further evaluation by [facility] Orthopedics. The patient was given IV vanc and cefepime and pain meds and transferred here for evaluation by [facility] Orth[facility]. Of note the patient [...] 8.6 9.5 9.1 Recent Labs Component Name 02/03/196 09/15/17 0441 09/11/17 0437 09/06/17 1157 09/04/17 [...] results for input(s): SEDRATE in the last 07434 hours. Recent Labs Component Name 08/15/17 0348 08/09/17 0745 08/05/17 0445 CRP 4.1* 32.0* 14.4* No results for input(s): TROPONIN in the last 82922 hours. No results for input(s): DDIMER in the last 86998 hours. Recent Labs Component Name 07/24/17 0508 [...] Michelle Pratt MD Hospitalist * Jonny Reynolds, [facility] - 02/03/2019 3:51 AM CDT Vancomycin Dosing Protocol José Miguel Keys is a 68 year old male on receiving Vancomcyin for Sepsis (Goal Tr 15-20) Patient weight is Wt 94.3 kg (208 lb) Recent Labs Component Name 02/03/19105 CREATININE 1.22* estimated Creatinine Clearance = Estimated [...] vision loss, dizziness, dysuria. He went to [facility] and workup thereincluding CT of the right hip revealed suspected abscess for which he was transferred here for further evaluation by [facility] Orthoped[facility]. The patient was given IV vanc and cefepime and pain meds and transferred here for evaluation by [facility]. Of note the patient [...] by mouth once daily ??? nystatin (MYCOSTATIN) 042590 UNIT/GM powder APPLY TO AFFECTED AREA TWICE [...] once daily ??? vitamin D, ergocalciferol, (DRISDOL) 50997 UNITS capsule Take 50,000 Units by mouth [...] Review . Recent Labs Component Name 02/03/19 01010/10/18 1515 09/19/17 0243 09/18/17 0003 WBC 14.2* [...] hip arthroplasty infection Referring Physcian: Lilly Jurado APRN-CERTIFIED ENERGY MANAGER Name: José Miguel Keys Age: [age] year old 10 The patient is a 68 y/o man with h/o MRSA sepsis treated at [facility] last year, complicated with epidural abscess. [...] BP: 114/51 Pulse: 92 95 92 Resp: 18 Temp: 97.8 ??F (36.6 ??C) SpO2: [...] results for input(s): CDIFFTOXINAB in the last 74303 hours. No results for input(s): SEDRATE in the last 09749 hours. Recent Labs Component Name 08/15/17 0348 08/09/17 0745 08/05/17 0445 CRP 4.1* 32.0* 14.4* No results for input(s): CK in the last 76510 hours. .No results for input(s): VANCOTROUGH, VANCOPEAK, VANCSERIES in the last 85268 hours. Invalid input(s): VANCORAND Recent Labs Component [...] CDTAssociated Order(s): IP CONSULT TO PASTORAL CARE Lime Filter Operator responded to consult for prayer by visiting with Pt and family and offering prayer and spiritual care support. * Larry Alexander MD - 02/03/2019 5:33 AM CDTAssociated Order(s): IP CONSULT TO ORTHOPEDIC SURGERY Orthopaedic Surgery Consult Note José Miguel Keys [phone] Briana Medeiros MD Date of service: 02/03/2019 Chief [...] any specific number. He was seen at [facility] yesterday and found to be tachycardic and so was started on broad spectrum antibiotics. They also obtained a pelvis xray and CT of right femur He notably has had bilateral ARNALDO performed with the right performed in 2005 and the left in 2010. No complaints on the left ARNALDO. His primary surgeon has since moved to [place] according to the patient. Dr. Amos at [facility] did not feel comfortable managing this patient. The patient has prior history of MRSA with an epidural abscess treated surgically 2017 at [facility]. He also has afib for which he is on xarelto and a history of a MT. 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 nystatin (MYCOSTATIN) 157136 UNIT/GM powder APPLY TO AFFECTED AREA TWICE [...] once daily ??? vitamin D, ergocalciferol, (DRISDOL) 44068 UNITS capsule Take 50,000 Units by mouth [...] hip scar Distal DF/PF ankle/toesR LE [facility] - R femur/hip and CT [...] cultures and intraoperative a ppearance, NPO at wy, hold eliquis, pain control, abx per ID documented in this encounter OR Notes * Operative - Larry Alexander MD - 02/08/2019 3:01 PM CDT [facility] Operative Report PATIENT NAME: JOSÉ MIGUEL KEYS MR#: [id number] DATE OF : 1950 CSN: [id number] DATE OF ADMISSION: 02/02/2019 ROOM#: [facility] INTRAOP DATE OF OPERATION: 02/08/2019 [...] complex surgical wound. SURGEON: Frandy Alexander M.D. STUDENT UNION CONSULTANT: Alberto Wakefield MD. ANESTHESIA: General. INDICATIONS FOR PROCEDURE: The patient is a 68-year-old man, who has had bilateral hip arthroplasties by another surgeon, who became infected and was transferred to [facility] for a tertiary level of care. He [...] was present for the entire case. NAME: JOSÉM IGUEL KEYS DICTATOR: FRANDY ALEXANDER M.D. DICTATED FOR: PERRY/GURWINDER JOB ID: [id number] Operative Report * Brief Op Note - Alberto Shell MD - 02/08/2019 11:51 AM CDT Brief Op Note Procedure: REVISION HIP ARTHROPLASTY BOTH COMPONENT, EXCISION BURSA (BURSECTOMY) TROCHANTERIC/HIP, CLOSURE PRIMARY DELAYED/SECONDARY (ANY AREA) Patient Name: José Miguel Keys Date of Service: 02/08/2019 Pre-Op Diagnosis: Infected Right ARNALDO, cultures positive for MRSA Post-Op Diagnosis: same Surgeon(s) and Role: * Larry Alexander MD - Primary Hand Braille Transcriber(s): Alberto Shell MD Anesthesia Type: general Complications: none Findings: Well fixed femoral stem EBL: 400 mL Urine Output : 250 mL IV Fluid Intake: Please see anesthesia notes Drains: GJ Tube Percutaneous Endoscopic Gastrostomy Abdomen;Left (Active) Specimen(s): none Alberto Shell MD * Operative - Larry Alexander MD - 02/04/2019 12:19 PM CDT [facility] Operative Report PATIENT NAME: JOSÉ MIGUEL KEYS MR#: [id number] DATE OF : 1950 CSN: [id number] DATE OF ADMISSION: 02/02/2019 ROOM#: [id number] DATE OF OPERATION: 02/04/2019 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 POSTOPERATIVE DIAGNOSIS: Infected right total hip arthroplasty. PROCEDURES: 1. Irrigation and debridement with arthrotomy, infected right hip Arthroplasty. 2. Irrigation and debridement of infected right hip trochanteric bursa 2. Wound VAC application, right hip. SURGEON: Frandy Alexander M.D. STUDENT UNION CONSULTANT: Jason Blackburn MD. ANESTHESIA: General. INDICATION FOR [...] ALEXANDER M.D. DICTATED FOR: PERRY/GURWINDER JOB ID: [id number] Operative Report * Brief Op Note - Jason Blackburn MD - 02/04/2019 11:56 AM CDT Brief Op Note Procedure: RIGHT HIP IRRIGATION AND DEBRIDEMENT, WOUND VAC PLACEMENT Patient Name: José Miguel Keys Date of Service: 02/04/2019 Pre-Op Diagnosis: right infected ARNALDO Post-Op Diagnosis: same Surgeon(s) and Role: * Larry Alexander MD - Primary Hand Braille Transcriber(s): Jason Blackburn MD Anesthesia Type: general Complications: none Findings: Gross purulence with deep tracks. EBL: minimal blood loss Drains: GJ Tube Percutaneous Endoscopic Gastrostomy Abdomen;Left (Active) Specimen(s): tissue and fluid cultures Jason Blackburn MD documented in this encounter Plan of Treatment Upcoming Encounters Date Type Department Care Team (Late st Contact Info) Description 07/09/2024 12:30 PM ERP IMPLEMENTATION CONSULTANT Office Visit [facility] - GI [address] [place] [address], [place] [address] Twin Miller MD [address] [place] [address] [place] [address] 09/19/2024 2:00 PM CDT Office Visit [facility] - Orthopedic Surgery [facility] [place] [address] Larry Alexander MD [address] [facility] [address] [place] [address] Scheduled Orders Name Type Priority Associated Diagnoses [...] NOCTURNAL 02 Routine 02/09/2019 12:01 AM CDT TYPE + SCREEN PANEL Routine 02/08/2019 8 [...] STAT 02/04/2019 11:29 AM CDT Diagnosis unknown CA NEG PRESS WND TX PER SESS; TOT SURF </= 50 SQ CM 02/04/2019 10:12 AM CDT Special Needs Shaheen Table, cement with gentamicinC Arm RESIDENT- Jason [phone] CA INCIS/DRAIN PELVIS/HIP,DEEP ABSCESS 02/04/2019 10:12 AM CDT Special Needs Shaheen Table, cement with gentamicinC Arm RESIDENT- Jason [phone] GLUCOSE - POINT OF CARE Routine 02/04/2019 [...] - 20.0 ug/mL 02/15/2019 5:16 PM CDT [facility] Blood BLOOD SPECIMEN / Unknown Venipuncture / Unknown 02/15/2019 4:50 PM CDT 02/15/2019 4:55 PM CDT Poncho Cisneros MD LAB - CHEMISTRY ROYCE KLINE Performing Organization Address [facility] Co de Phone Number [facility] [address] [place] [address] * (ABNORMAL) PT-INR (02/15/2019 3:07 AM CDT) PT 18.9(H) 9.5 - 11.6 sec 02/15/2019 4:09 AM CDT [facility] INR 1.9(H) 0.9 - 1.1 02/15/2019 4:09 AM CDT [facility] Blood BLOOD SPECIMEN / Unknown Lab Venipuncture / Unknown 02/15/2019 3:07 AM CDT 02/15/2019 3:51 AM CDT Narrative [facility] - 02/15/2019 4:09 AM CDT Conventional Warfarin Anticoagulant Therapy: INR Reference Range: ??2.0-3.0 Intensive Warfarin Anticoagulant Therapy: INR Reference Range: ? 2.5-3.5 Blaire Meek MD LAB - COAGULATION OR DERABLES Performing Organization Address [facility] Co de Phone Number [facility] [address] [place] [id number] * (ABNORMAL) BASIC METABOLIC PANEL (CALCIUM TOTAL) (02/15/2019 3:07 AM CDT) Glucose 98 74 - 106 mg/dL 02/15/2019 4:27 AM CDT [facility] Sodium 141 136 - 145 mmol/L 02/15/2019 4:27 AM CDT [facility] Potassium 3.7 3.5 - 5.1 mmol/L 02/15/2019 4:27 AM CDT [facility] Chloride 106 98 - 107 mmol/L 02/15/2019 4:27 AM CDT [facility] CO2 28 23 - 31 mmol/L 02/15/2019 4:27 AM CDT [facility] Calcium 8.6 8.4 - 10.2 mg/dL 02/15/2019 4:27 AM CDT [facility] Anion Gap 7(L) 8 - 16 mmol/L 02/15/2019 4:27 AM CDT [facility] BUN 17 8.4 - 25.7 mg/dL 02/15/2019 4:27 AM CDT [facility] Creatinine 1.02 0.73 - 1.18 mg/dL 02/15/2019 4:27 AM CDT [facility] eGFR by MDRD >60 mL/min/1.7 3m2 02/15/2019 4:27 AM CDT [facility] eGFR by MDRD >60 mL/min/1.7 3m2 02/15/2019 4:27 AM CDT [facility] Blood BLOOD SPECIMEN / Unknown Lab Venipuncture / Unknown 02/15/2019 3:07 AM CDT 02/15/2019 3:51 AM CDT Blaire Meek MD LAB - CHEMISTRY ROYCE KLINE [facility] Organization Address City/State/ZIP Co de Phone Number [facility] [address] [place] [address] * (ABNORMAL) CBC W AUTO DIFFERENTIAL (02/15/2019 3:07 AM CDT) WBC 8.5 4.4 - 10.7 x10E9/L 02/15/2019 4:[facility] Corrected 02/15/2019 4:05 AM [facility] RBC 2.74(L) 3.80 - 5.40 x10E12/L 02/15/2019 4:05 AM CDT [facility] Hemoglobin 7.4(L) 12.0 - 17.6 gm/dL 02/15/2019 4:05 AM CDT [facility] Hematocrit 25.0(L) 35.2 - 51.7 % 02/15/2019 4:05 AM CDT [facility] MCV 91.2 80.7 - 98.3 fl 02/15/2019 4:05 AM CDT [facility] MCH 27.0 26.7 - 34.0 pg 02/15/2019 4:05 AM CDT [facility] MCHC 29.6(L) 30.8 - 35.9 gm/dL 02/15/2019 4:05 AM CDT [facility] Platelet Count 284 153 - 416 x10E9/L 02/15/2019 4:05 AM [facility] RDW-CV 17.0(H) 12.1 - 14.9 % 02/15/2019 4:05 AM [facility] MPV 11.5 9.4 - 12.9 fl 02/15/2019 4:05 AM [facility] Neutrophils % 72.9 44.0 - 73.0 % 02/15/2019 4:05 AM [facility] Lymphocytes % 8.7(L) 20.0 - 43.0 % 02/15/2019 4:05 AM [facility] Monocytes % 8.0 5.0 - 13.0 % 02/15/2019 4:05 AM [facility] Eosinophils % 8.0(H) 0.0 - 6.0 % 02/15/2019 4:05 AM [facility] Basophils % 0.5 0.0 - 2.0 % 02/15/2019 4:05 AM [facility] Immature Granulocytes 1.9(H) 0 - 1 % 02/15/2019 4:05 AM [facility] Neutrophil Absolute 6.18 2.01 - 7.14 x10E9/L 02/15/2019 4:05 AM [facility] Lymphocytes Absolute 0.74(L) 1.07 - 3.94 x10E9/L 02/15/2019 4:05 AM [facility] Monocytes Absolute 0.68 0.26 - 1.07 x10E9/L 02/15/2019 4:05 AM [facility] Eosinophils Absolute 0.68(H) 0 - 0.47 x10E9/L 02/15/2019 4:05 AM [facility] Basophils Absolute 0.04 0 - 0.08 x10E9/L 02/15/2019 4:05 AM [facility] Immature Granulocytes Absolute 0.16(H) 0.00 - 0.06 x10E9/L 02/15/2019 4:05 AM [facility] nRBC Auto 0 /100 WBC 02/15/2019 4:05 AM [facility] Blood BLOOD SPECIMEN / Unknown Lab Venipuncture / Unknown 02/15/2019 3:07 AM CDT 02/15/2019 3:51 AM CDT Blaire Meek MD LAB - HEMATOLOGY ORD ERABLES Performing Organization Address [facility] Co de Phone Number [facility] [address] [place] [phone] * (ABNORMAL) PT-INR (02/14/2019 3:46 AM CDT) PT 18.3(H) 9.5 - 11.6 sec 02/14/2019 5:27 AM CDT [facility] INR 1.9(H) 0.9 - 1.1 02/14/2019 5:27 AM CDT [facility] Blood BLOOD SPECIMEN / Unknown Lab Venipuncture / Unknown 02/14/2019 3:46 AM CDT 02/14/2019 4:16 AM CDT Narrative [facility] - 02/14/2019 5:27 AM CDT Conventional Warfarin Anticoagulant Therapy: INR Reference Range: ??2.0-3.0 Intensive Warfarin Anticoagulant Therapy: INR Reference Range: ? 2.5-3.5 Blaire Meek MD LAB - COAGULATION OR DERABLES Performing Organization Address [facility] Co de Phone Number [facility] [address] [place] [address] * (ABNORMAL) BASIC METABOLIC PANEL (CALCIUM TOTAL) (02/14/2019 3:46 AM CDT) Glucose 113(H) 74 - 106 mg/dL 02/14/2019 4:56 AM CDT [facility] Sodium 141 136 - 145 mmol/L 02/14/2019 4:56 AM CDT [facility] Potassium 3.7 3.5 - 5.1 mmol/L 02/14/2019 4:56 AM CDT [facility] Chloride 108(H) 98 - 107 mmol/L 02/14/2019 4:56 AM CDT [facility] CO2 28 23 - 31 mmol/L 02/14/2019 4:56 AM CDT [facility] Calcium 8.4 8.4 - 10.2 mg/dL 02/14/2019 4:56 AM CDT [facility] Anion Gap 5(L) 8 - 16 mmol/L 02/14/2019 4:56 AM CDT [facility] BUN 18 8.4 - 25.7 mg/dL 02/14/2019 4:56 AM CDT [facility] Creatinine 1.10 0.73 - 1.18 mg/dL 02/14/2019 4:56 AM CDT [facility] eGFR by MDRD >60 mL/min/1.7 3m2 02/14/2019 4:56 AM CDT [facility] eGFR by MDRD >60 mL/min/1.7 3m2 02/14/2019 4:56 AM CDT [facility] Blood BLOOD SPECIMEN / Unknown 02/14/2019 3:46 AM CDT 02/14/2019 4:15 AM CDT Blaire Meek MD LAB - CHEMISTRY ROYCE KLINE [facility] [address] [place] [address] * (ABNORMAL) CBC W AUTO DIFFERENTIAL (02/14/2019 2:58 AM CDT) WBC 9.6 4.4 - 10.7 x10E9/L 02/14/2019 4:47 AM CDT [facility] WBC Corrected 02/14/2019 4:47 AM CDT [facility] RBC 2.80(L) 3.80 - 5.40 x10E12/L 02/14/2019 4:47 AM CDT [facility] Hemoglobin 7.7(L) 12.0 - 17.6 gm/dL 02/14/2019 4:47 AM CDT [facility] Hematocrit 26.0(L) 35.2 - 51.7 % 02/14/2019 4:47 AM CDT [facility] MCV 92.9 80.7 - 98.3 fl 02/14/2019 4:47 AM CDT [facility] MCH 27.5 26.7 - 34.0 pg 02/14/2019 4:47 AM CDT [facility] MCHC 29.6(L) 30.8 - 35.9 gm/dL 02/14/2019 4:47 AM CDT [facility] Platelet Count 288 153 - 416 x10E9/L 02/14/2019 4:47 AM CDT [facility] RDW-CV 17.0(H) 12.1 - 14.9 % 02/14/2019 4:47 AM CDT [facility] MPV 11.9 9.4 - 12.9 fl 02/14/2019 4:47 AM [facility] Neutrophils % 71.9 44.0 - 73.0 % 02/14/2019 4:47 AM [facility] Lymphocytes % 8.6(L) 20.0 - 43.0 % 02/14/2019 4:47 AM [facility] Monocytes % 9.6 5.0 - 13.0 % 02/14/2019 4:47 AM T [facility] Eosinophils % 7.0(H) 0.0 - 6.0 % 02/14/2019 4:47 AM T [facility] Basophils % 0.5 0.0 - 2.0 % 02/14/2019 4:47 AM [facility] Immature Granulocytes 2.4(H) 0 - 1 % 02/14/2019 4:47 AM [facility] Neutrophil Absolute 6.90 2.01 - 7.14 x10E9/L 02/14/2019 4:47 AM [facility] Lymphocytes Absolute 0.83(L) 1.07 - 3.94 x10E9/L 02/14/2019 4:47 AM T [facility] Monocytes Absolute 0.92 0.26 - 1.07 x10E9/L 02/14/2019 4:47 AM [facility] Eosinophils Absolute 0.67(H) 0 - 0.47 x10E9/L 02/14/2019 4:47 AM [facility] Basophils Absolute 0.05 0 - 0.08 x10E9/L 02/14/2019 4:47 AM [facility] Immature Granulocytes Absolute 0.23(H) 0.00 - 0.06 x10E9/L 02/14/2019 4:47 AM [facility] nRBC Auto 0 /100 WBC 02/14/2019 4:47 AM [facility] Blood BLOOD SPECIMEN / Unknown Lab Venipuncture / Unknown 02/14/2019 2:58 AM CDT 02/14/2019 4:10 AM CDT Blaire Meek MD LAB - HEMATOLOGY ORD ERABLES [facility] [address] [place] [address] * XR CHEST FOR PICC PLMT (Place [...] - 11.6 sec 02/13/2019 5:20 AM CDT [facility] INR 1.3(H) 0.9 - 1.1 02/13/2019 5:20 AM CDT [facility] Blood BLOOD SPECIMEN / Unknown Lab Venipuncture / Unknown 02/13/2019 4:40 AM CDT 02/13/2019 4:56 AM CDT Narrative [facility] - 02/13/2019 5:20 AM CDT Conventional Warfarin Anticoagulant Therapy: INR Reference Range: ??2.0-3.0 Intensive Warfarin Anticoagulant Therapy: INR Reference Range: ? 2.5-3.5 Blaire Meek MD LAB - COAGULATION OR DERABLES Performing Organization Address City/[facility]/ZIP Co de Phone Number [facility] [address] [place], [place] [phone] * BASIC METABOLIC PANEL (CALCIUM TOTAL) (02/13/2019 4:40 AM CDT) [facility] Glucose 106 74 - 106 mg/dL 02/13/2019 5:49 AM CDT [facility] Sodium 142 136 - 145 mmol/L 02/13/2019 5:49 AM CDT [facility] Potassium 3.6 3.5 - 5.1 mmol/L 02/13/2019 5:49 AM CDT [facility] Chloride 106 98 - 107 mmol/L 02/13/2019 5:49 AM CDT [facility] CO2 28 23 - 31 mmol/L 02/13/2019 5:49 AM CDT [facility] Calcium 8.6 8.4 - 10.2 mg/dL 02/13/2019 5:49 AM CDT [facility] Anion Gap 8 8 - 16 mmol/L 02/13/2019 5:49 AM CDT [facility] BUN 17 8.4 - 25.7 mg/dL 02/13/2019 5:49 AM CDT [facility] Creatinine 0.97 0.73 - 1.18 mg/dL 02/13/2019 5:49 AM CDT [facility] eGFR by MDRD >60 mL/min/1.7 3m2 02/13/2019 5:49 AM CDT [facility] eGFR by MDRD >60 mL/min/1.7 3m2 02/13/2019 5:49 AM CDT [facility] Blood BLOOD SPECIMEN / Unknown Lab Venipuncture / Unknown 02/13/2019 4:40 AM CDT 02/13/2019 4:56 AM CDT Blaire Meek MD LAB - CHEMISTRY ORDE RABANGELIA Performing Organization Address City/[facility]/ZIP Co de Phone Number [facility] [address] [place], [place] [phone] * (ABNORMAL) CBC W AUTO DIFFERENTIAL (02/13/2019 4:40 AM CDT) [facility] Signature WBC 8.9 4.4 - 10.7 x10E9/L 02/13/2019 5:22 AM CDT [facility] WBC Corrected 02/13/2019 5:22 AM CDT [facility] RBC 2.73(L) 3.80 - 5.40 x10E12/L 02/13/2019 5:22 AM CDT [facility] Hemoglobin 7.6(L) 12.0 - 17.6 gm/dL 02/13/2019 5:22 AM CDT [facility] Hematocrit 25.1(L) 35.2 - 51.7 % 02/13/2019 5:22 AM CDT [facility] MCV 91.9 80.7 - 98.3 fl 02/13/2019 5:22 AM CDT [facility] MCH 27.8 26.7 - 34.0 pg 02/13/2019 5:22 AM CDT [facility] MCHC 30.3(L) 30.8 - 35.9 gm/dL 02/13/2019 5:22 AM CDT [facility] Platelet Count 287 153 - 416 x10E9/L 02/13/2019 5:22 AM CDT [facility] RDW-CV 16.7(H) 12.1 - 14.9 % 02/13/2019 5:22 AM CDT [facility] MPV 11.7 9.4 - 12.9 fl 02/13/2019 5:22 AM CDT [facility] Neutrophils % 70.3 44.0 - 73.0 % 02/13/2019 5:22 AM CDT [facility] Lymphocytes % 8.8(L) 20.0 - 43.0 % 02/13/2019 5:22 AM CDT [facility] Monocytes % 8.8 5.0 - 13.0 % 02/13/2019 5:22 AM CDT [facility] Eosinophils % 8.1(H) 0.0 - 6.0 % 02/13/2019 5:22 AM CDT [facility] Basophils % 0.6 0.0 - 2.0 % 02/13/2019 5:22 AM CDT [facility] Immature Granulocytes 3.4(H) 0 - 1 % 02/13/2019 5:22 AM CDT [facility] Neutrophil Absolute 6.25 2.01 - 7.14 x10E9/L 02/13/2019 5:22 AM CDT [facility] Lymphocytes Absolute 0.78(L) 1.07 - 3.94 x10E9/L 02/13/2019 5:22 AM CDT [facility] Monocytes Absolute 0.78 0.26 - 1.07 x10E9/L 02/13/2019 5:22 AM CDT [facility] Eosinophils Absolute 0.72(H) 0 - 0.47 x10E9/L 02/13/2019 5:22 AM CDT [facility] Basophils Absolute 0.05 0 - 0.08 x10E9/L 02/13/2019 5:22 AM CDT [facility] Immature Granulocytes Absolute 0.30(H) 0.00 - 0.06 x10E9/L 02/13/2019 5:22 AM CDT [facility] nRBC Auto 0 /100 WBC 02/13/2019 5:22 AM CDT [facility] Blood BLOOD SPECIMEN / Unknown Lab Venipuncture / Unknown 02/13/2019 4:40 AM CDT 02/13/2019 4:56 AM CDT Blaire Meek MD LAB - HEMATOLOGY ORD ERABLES [facility] [address] [place], [place] [phone] * (ABNORMAL) VANCOMYCIN LEVEL TROUGH (02/12/2019 9:22 AM CDT) Pathologist [facility] Vancomycin Trough 22.6(H) 10.0 - 20.0 ug/mL 02/12/2019 10:04 AM CDT [facility] Blood BLOOD SPECIMEN / Unknown Lab Venipuncture / Unknown 02/12/2019 9:22 AM CDT 02/12/2019 9:32 AM CDT Blaire Meek MD LAB - CHEMISTRY ROYCE KLINE [facility] [address] [place], [place] [phone] * PT-INR (02/12/2019 3:15 AM CDT) Pathologist [facility] PT 11.0 9.5 - 11.6 sec 02/12/2019 4:07 AM [facility] INR 1.0 0.9 - 1.1 02/12/2019 4:07 AM [facility] Blood BLOOD SPECIMEN / Unknown Lab Venipuncture / Unknown 02/12/2019 3:15 AM CDT 02/12/2019 3:[address] [facility] - 02/12/2019 4:07 AM CDT Conventional Warfarin Anticoagulant Therapy: INR Reference Range: ??2.0-3.0 Intensive Warfarin Anticoagulant Therapy: INR Reference Range: ? 2.5-3.5 Blaire Meek MD LAB - COAGULATION OR DERABLES [facility] [address] [place] [address] * (ABNORMAL) BASIC METABOLIC PANEL (CALCIUM TOTAL) (02/12/2019 3:15 AM CDT) Pathologist [facility] Glucose 114(H) 74 - 106 mg/dL 02/12/2019 4:19 AM [facility] Sodium 139 136 - 145 mmol/L 02/12/2019 4:19 AM [facility] Potassium 3.5 3.5 - 5.1 mmol/L 02/12/2019 4:19 AM [facility] Chloride 105 98 - 107 mmol/L 02/12/2019 4:19 AM [facility] CO2 27 23 - 31 mmol/L 02/12/2019 4:19 AM [facility] Calcium 8.7 8.4 - 10.2 mg/dL 02/12/2019 4:19 AM [facility] Anion Gap 7(L) 8 - 16 mmol/L 02/12/2019 4:19 AM [facility] BUN 19 8.4 - 25.7 mg/dL 02/12/2019 4:19 AM [facility] Creatinine 0.99 0.73 - 1.18 mg/dL 02/12/2019 4:19 AM [facility] eGFR by MDRD >60 mL/min/1.7 3m2 02/12/2019 4:19 AM [facility] eGFR by MDRD >60 mL/min/1.7 3m2 02/12/2019 4:19 AM CDT [facility] Blood BLOOD SPECIMEN / Unknown Lab Venipuncture / Unknown 02/12/2019 3:15 AM CDT 02/12/2019 3:43 AM CDT Blaire Meek MD LAB - CHEMISTRY ROYCE KLINE [facility] Organization Address City/State/ZIP Co de Phone Number [facility] [address] [place] [address] * (ABNORMAL) CBC W AUTO DIFFERENTIAL (02/12/2019 3:15 AM CDT) WBC 9.3 4.4 - 10.7 x10E9/L 02/12/2019 3:56 AM CDT [facility] WBC Corrected 02/12/2019 3:56 AM CDT [facility] RBC 2.84(L) 3.80 - 5.40 x10E12/L 02/12/2019 3:56 AM CDT [facility] Hemoglobin 7.5(L) 12.0 - 17.6 gm/dL 02/12/2019 3:56 AM CDT [facility] Hematocrit 26.0(L) 35.2 - 51.7 % 02/12/2019 3:56 AM CDT [facility] MCV 91.5 80.7 - 98.3 fl 02/12/2019 3:56 AM CDT [facility] MCH 26.4(L) 26.7 - 34.0 pg 02/12/2019 3:56 AM CDT [facility] MCHC 28.8(L) 30.8 - 35.9 gm/dL 02/12/2019 3:56 AM CDT [facility] Platelet Count 270 153 - 416 x10E9/L 02/12/2019 3:56 AM CDT [facility] RDW-CV 16.3(H) 12.1 - 14.9 % 02/12/2019 3:56 AM CDT [facility] MPV 11.7 9.4 - 12.9 fl 02/12/2019 3:56 AM CDT [facility] Neutrophils % 74.3(H) 44.0 - 73.0 % 02/12/2019 3:56 AM CDT [facility] Lymphocytes % 8.4(L) 20.0 - 43.0 % 02/12/2019 3:56 AM CDT [facility] Monocytes % 8.4 5.0 - 13.0 % 02/12/2019 3:56 AM CDT [facility] Eosinophils % 6.0 0.0 - 6.0 % 02/12/2019 3:56 AM CDT [facility] Basophils % 0.4 0.0 - 2.0 % 02/12/2019 3:56 AM T [facility] Immature Granulocytes 2.5(H) 0 - 1 % 02/12/2019 3:56 AM CDT [facility] Neutrophil Absolute 6.88 2.01 - 7.14 x10E9/L 02/12/2019 3:56 AM CDT [facility] Lymphocytes Absolute 0.78(L) 1.07 - 3.94 x10E9/L 02/12/2019 3:56 AM CDT [facility] Monocytes Absolute 0.78 0.26 - 1.07 x10E9/L 02/12/2019 3:56 AM CDT [facility] Eosinophils Absolute 0.56(H) 0 - 0.47 x10E9/L 02/12/2019 3:56 AM CDT [facility] Basophils Absolute 0.04 0 - 0.08 x10E9/L 02/12/2019 3:56 AM CDT [facility] Immature Granulocytes Absolute 0.23(H) 0.00 - 0.06 x10E9/L 02/12/2019 3:56 AM CDT [facility] nRBC Auto 0 /100 WBC 02/12/2019 3:56 AM T [facility] Blood BLOOD SPECIMEN / Unknown Lab Venipuncture / Unknown 02/12/2019 3:15 AM CDT 02/12/2019 3:44 AM CDT Blaire Meek MD LAB - HEMATOLOGY ORD ERABLES [facility] [address] [place] [address] * PT-INR (02/11/2019 2:34 PM CDT) PT 11.0 9.5 - 11.6 sec 02/11/2019 3:04 PM CDT [facility] INR 1.0 0.9 - 1.1 02/11/2019 3:04 PM CDT [facility] Blood BLOOD SPECIMEN / Unknown Lab Venipuncture / Unknown 02/11/2019 2:34 PM CDT 02/11/2019 2:52 PM CDT Narrative [facility] - 02/11/2019 3:04 PM CDT Conventional Warfarin Anticoagulant Therapy: INR Reference Range: ??2.0-3.0 Intensive Warfarin Anticoagulant Therapy: INR Reference Range: ? 2.5-3.5 Blaire Meek MD LAB - COAGULATION OR DERABLES [facility] [address] [place] [address] * (ABNORMAL) BASIC METABOLIC PANEL (CALCIUM TOTAL) (02/11/2019 2:42 AM CDT) Glucose 113(H) 74 - 106 mg/dL 02/11/2019 4:37 AM CDT [facility] Sodium 137 136 - 145 mmol/L 02/11/2019 4:37 AM CDT [facility] Potassium 3.5 3.5 - 5.1 mmol/L 02/11/2019 4:37 AM CDT [facility] Chloride 101 98 - 107 mmol/L 02/11/2019 4:37 AM CDT [facility] CO2 27 23 - 31 mmol/L 02/11/2019 4:37 AM T [facility] Calcium 9.0 8.4 - 10.2 mg/dL [facility]2019 [facility] Anion Gap 9 8 - 16 mmol/L 02/11/2019 4:37 AM CDT [facility] BUN 21 8.4 - 25.7 mg/dL 02/11/2019 4:37 AM CDT [facility] Creatinine 1.00 0.73 - 1.18 mg/dL 02/11/2019 4:37 AM CDT [facility] eGFR by MDRD >60 mL/min/1.7 3m2 02/11/2019 4:37 AM CDT [facility] eGFR by MDRD >60 mL/min/1.7 3m2 02/11/2019 4:37 AM CDT [facility] Blood BLOOD SPECIMEN / Unknown Lab Venipuncture / Unknown 02/11/2019 2:42 AM CDT 02/11/2019 3:51 AM CDT Blaire Meek MD LAB - CHEMISTRY ROYCE KLINE [facility] Organization Address City/State/ZIP Co de Phone Number [facility] [address] [place] [address] * (ABNORMAL) CBC W AUTO DIFFERENTIAL (02/11/2019 2:42 AM CDT) Pathologist [facility] WBC 10.3 4.4 - 10.7 x10E9/L 02/11/2019 4:01 AM [facility] W[facility] Corrected 02/11/2019 4:01 AM [facility] RBC 2.87(L) 3.80 - 5.40 x10E12/L 02/11/2019 4:01 AM [facility] Hemoglobin 8.0(L) 12.0 - 17.6 gm/dL 02/11/2019 4:01 AM [facility] Hematocrit 26.4(L) 35.2 - 51.7 % 02/11/2019 4:01 AM [facility] MCV 92.0 80.7 - 98.3 fl 02/11/2019 4:01 AM [facility] MCH 27.9 26.7 - 34.0 pg 02/11/2019 4:01 AM [facility] MCHC 30.3(L) 30.8 - 35.9 gm/dL 02/11/2019 4:01 AM [facility] Platelet Count 277 153 - 416 x10E9/L 02/11/2019 4:01 AM [facility] RDW-CV 16.2(H) 12.1 - 14.9 % 02/11/2019 4:01 AM [facility] MPV 11.7 9.4 - 12.9 fl 02/11/2019 4:01 AM [facility] Neutrophils % 74.0(H) 44.0 - 73.0 % 02/11/2019 4:01 AM [facility] Lymphocytes % 7.8(L) 20.0 - 43.0 % 02/11/2019 4:01 AM [facility] Monocytes % 10.2 5.0 - 13.0 % 02/11/2019 4:01 AM T [facility] Eosinophils % 5.3 0.0 - 6.0 % 02/11/2019 4:01 AM T [facility] Basophils % 0.4 0.0 - 2.0 % 02/11/2019 4:01 AM [facility] Immature Granulocytes 2.3(H) 0 - 1 % 02/11/2019 4:01 AM [facility] Neutrophil Absolute 7.63(H) 2.01 - 7.14 x10E9/L 02/11/2019 4:01 AM [facility] Lymphocytes Absolute 0.81(L) 1.07 - 3.94 x10E9/L 02/11/2019 4:01 AM [facility] Monocytes Absolute 1.05 0.26 - 1.07 x10E9/L 02/11/2019 4:01 AM [facility] Eosinophils Absolute 0.55(H) 0 - 0.47 x10E9/L 02/11/2019 4:01 AM [facility] Basophils Absolute 0.04 0 - 0.08 x10E9/L 02/11/2019 4:01 AM [facility] Immature Granulocytes Absolute 0.24(H) 0.00 - 0.06 x10E9/L 02/11/2019 4:01 AM [facility] nRBC Auto 0 /100 WBC 02/11/2019 4:01 AM [facility] Blood BLOOD SPECIMEN / Unknown Lab Venipuncture / Unknown 02/11/2019 2:42 AM CDT 02/11/2019 3:51 AM CDT Blaire Meek MD LAB - HEMATOLOGY ORD ERABLES [facility] [address], [place] [id number] * (ABNORMAL) BASIC METABOLIC PANEL (CALCIUM TOTAL) (02/10/2019 3:18 AM CDT) [facility] Glucose 108(H) 74 - 106 mg/dL 02/10/2019 5:04 AM [facility] Sodium 139 136 - 145 mmol/L 02/10/2019 5:04 AM CDT [facility] Potassium 3.8 3.5 - 5.1 mmol/L 02/10/2019 5:04 AM CDT [facility] Chloride 105 98 - 107 mmol/L 02/10/2019 5:04 AM CDT [facility] CO2 26 23 - 31 mmol/L 02/10/2019 5:04 AM CDT [facility] Calcium 9.0 8.4 - 10.2 mg/dL 02/10/2019 5:04 AM CDT [facility] Anion Gap 8 8 - 16 mmol/L 02/10/2019 5:04 AM CDT [facility] BUN 20 8.4 - 25.7 mg/dL 02/10/2019 5:04 AM CDT [facility] Creatinine 1.16 0.73 - 1.18 mg/dL 02/10/2019 5:04 AM CDT [facility] eGFR by MDRD >60 mL/min/1.7 3m2 02/10/2019 5:04 AM CDT [facility] eGFR by MDRD >60 mL/min/1.7 3m2 02/10/2019 5:04 AM CDT [facility] Blood BLOOD SPECIMEN / Unknown Lab Venipuncture / Unknown 02/10/2019 3:18 AM CDT 02/10/2019 4:24 AM CDT Blaire Meek MD LAB - CHEMISTRY ROYCE KLINE [facility] Organization Address City/State/ZIP Co de Phone Number [facility] [address] [place] [address] * (ABNORMAL) CBC W AUTO DIFFERENTIAL (02/10/2019 3:18 AM CDT) [facility] WBC 10.1 4.4 - 10.7 x10E9/L 02/10/2019 4:37 AM CDT [facility] WBC Corrected 02/10/2019 4:37 AM CDT [facility] RBC 2.85(L) 3.80 - 5.40 x10E12/L 02/10/2019 4:37 AM CDT [facility] Hemoglobin 7.9(L) 12.0 - 17.6 gm/dL 02/10/2019 4:37 AM CDT [facility] Hematocrit 26.1(L) 35.2 - 51.7 % 02/10/2019 4:37 AM T [facility] MCV 91.6 80.7 - 98.3 fl 02/10/2019 4:37 AM CDT [facility] MCH 27.7 26.7 - 34.0 pg 02/10/2019 4:37 AM [facility] MCHC 30.3(L) 30.8 - 35.9 gm/dL 02/10/2019 4:37 AM [facility] Platelet Count 260 153 - 416 x10E9/L 02/10/2019 4:37 AM [facility] RDW-CV 16.2(H) 12.1 - 14.9 % 02/10/2019 4:37 AM [facility] MPV 11.9 9.4 - 12.9 fl 02/10/2019 4:37 AM [facility] Neutrophils % 76.6(H) 44.0 - 73.0 % 02/10/2019 4:37 AM [facility] Lymphocytes % 7.6(L) 20.0 - 43.0 % 02/10/2019 4:37 AM [facility] Monocytes % 10.5 5.0 - 13.0 % 02/10/2019 4:37 AM [facility] Eosinophils % 3.3 0.0 - 6.0 % 02/10/2019 4:37 AM [facility] Basophils % 0.5 0.0 - 2.0 % 02/10/2019 4:37 AM [facility] Immature Granulocytes 1.5(H) 0 - 1 % 02/10/2019 4:37 AM [facility] Neutrophil Absolute 7.77(H) 2.01 - 7.14 x10E9/L 02/10/2019 4:37 AM [facility] Lymphocytes Absolute 0.77(L) 1.07 - 3.94 x10E9/L 02/10/2019 4:37 AM T [facility] Monocytes Absolute 1.06 0.26 - 1.07 x10E9/L 02/10/2019 4:37 AM [facility] Eosinophils Absolute 0.33 0 - 0.47 x10E9/L 02/10/2019 4:37 AM T [facility] Basophils Absolute 0.05 0 - 0.08 x10E9/L 02/10/2019 4:37 AM [facility] Immature Granulocytes Absolute 0.15(H) 0.00 - 0.06 x10E9/L 02/10/2019 4:37 AM CDT [facility] nRBC Auto 0 /100 WBC 02/10/2019 4:37 AM [facility] Blood BLOOD SPECIMEN / Unknown Lab Venipuncture / Unknown 02/10/2019 3:18 AM CDT 02/10/2019 4:24 AM CDT Blaire Meek MD LAB - HEMATOLOGY ORD ERABLES [facility] [address] [place], [place] [id number] * (ABNORMAL) BASIC METABOLIC PANEL (CALCIUM TOTAL) (02/09/2019 2:30 AM CDT) Glucose 119(H) 74 - 106 mg/dL 02/09/2019 3:04 AM [facility] Sodium 137 136 - 145 mmol/L 02/09/2019 3:04 AM [facility] Potassium 4.3 3.5 - 5.1 mmol/L 02/09/2019 3:04 AM [facility] Chloride 102 98 - 107 mmol/L 02/09/2019 3:04 AM [facility] CO2 25 23 - 31 mmol/L 02/09/2019 3:04 AM [facility] Calcium 8.9 8.4 - 10.2 mg/dL 02/09/2019 3:04 AM [facility] Anion Gap 10 8 - 16 mmol/L 02/09/2019 3:04 AM [facility] BUN 20 8.4 - 25.7 mg/dL 02/09/2019 3:04 AM [facility] Creatinine 1.23(H) 0.73 - 1.18 mg/dL 02/09/2019 3:04 AM [facility] eGFR by MDRD 58 mL/min/1.7 3m2 02/09/2019 3:04 AM [facility] eGFR by MDRD >60 mL/min/1.7 3m2 02/09/2019 3:04 AM [facility] Blood BLOOD SPECIMEN / Unknown Lab Venipuncture / Unknown 02/09/2019 2:30 AM CDT 02/09/2019 2:46 AM CDT Blaire Meek MD LAB - CHEMISTRY ROYCE KLINE [facility] [address] [place] [address] * (ABNORMAL) CBC W AUTO DIFFERENTIAL (02/09/2019 2:30 AM CDT) WBC 11.7(H) 4.4 - 10.7 x10E9/L 02/09/2019 2:50 AM CDT [facility] WBC Corrected 02/09/2019 2:50 AM CDT [facility] RBC 2.97(L) 3.80 - 5.40 x10E12/L 02/09/2019 2:50 AM CDT [facility] Hemoglobin 8.3(L) 12.0 - 17.6 gm/dL 02/09/2019 2:50 AM CDT [facility] Hematocrit 27.5(L) 35.2 - 51.7 % 02/09/2019 2:50 AM CDT [facility] MCV 92.6 80.7 - 98.3 fl 02/09/2019 2:50 AM CDT [facility] MCH 27.9 26.7 - 34.0 pg 02/09/2019 2:50 AM CDT [facility] MCHC 30.2(L) 30.8 - 35.9 gm/dL 02/09/2019 2:50 AM CDT [facility] Platelet Count 282 153 - 416 x10E9/L 02/09/2019 2:50 AM CDT [facility] RDW-CV 15.7(H) 12.1 - 14.9 % 02/09/2019 2:50 AM CDT [facility] MPV 11.2 9.4 - 12.9 fl 02/09/2019 2:50 AM CDT [facility] Neutrophils % 85.8(H) 44.0 - 73.0 % 02/09/2019 2:50 AM CDT [facility] Lymphocytes % 4.8(L) 20.0 - 43.0 % 02/09/2019 2:50 AM CDT [facility] Monocytes % 8.2 5.0 - 13.0 % 02/09/2019 2:50 AM CDT [facility] Eosinophils % 0.1 0.0 - 6.0 % 02/09/2019 2:50 AM CDT [facility] Basophils % 0.2 0.0 - 2.0 % 02/09/2019 2:50 AM CDT [facility] Immature Granulocytes 0.9 0 - 1 % 02/09/2019 2:50 AM CDT [facility] Neutrophil Absolute 10.01(H) 2.01 - 7.14 x10E9/L 02/09/2019 2:50 AM CDT [facility] Lymphocytes Absolute 0.56(L) 1.07 - 3.94 x10E9/L 02/09/2019 2:50 AM CDT [facility] Monocytes Absolute 0.95 0.26 - 1.07 x10E9/L 02/09/2019 2:50 AM CDT [facility] Eosinophils Absolute 0.01 0 - 0.47 x10E9/L 02/09/2019 2:50 AM CDT [facility] Basophils Absolute 0.02 0 - 0.08 x10E9/L 02/09/2019 2:50 AM CDT [facility] Immature Granulocytes Absolute 0.10(H) 0.00 - 0.06 x10E9/L 02/09/2019 2:50 AM CDT [facility] nRBC Auto 0 /100 WBC 02/09/2019 2:50 AM CDT [facility] Blood BLOOD SPECIMEN / Unknown Lab Venipuncture / Unknown 02/09/2019 2:30 AM CDT 02/09/2019 2:45 AM CDT Blaire Meek MD LAB - HEMATOLOGY ORD ERABLES [facility] [address] [place] [address] * TYPE + SCREEN PANEL (02/08/2019 8:57 AM CDT) ABO A 02/08/2019 10:09 AM CDT [facility] Rh Type Positive 02/08/2019 10:09 AM CDT [facility] Comment:History checked. Antibody Screen Negative 02/08/2019 10:09 AM CDT [facility] Blood Bank BLOOD SPECIMEN / Unknown Lab Venipuncture / Unknown 02/08/2019 8:57 AM CDT 02/08/2019 9:40 AM CDT Alberto Shell MD LAB - BLOOD BA NK ORDERABLES [facility] [address] [phone] * (ABNORMAL) BASIC METABOLIC PANEL (CALCIUM TOTAL) (02/08/2019 2:56 AM CDT) [facility] Glucose 90 74 - 106 mg/dL 02/08/2019 4:44 AM [facility] Sodium 137 136 - 145 mmol/L 02/08/2019 4:44 AM [facility] Potassium 3.8 3.5 - 5.1 mmol/L 02/08/2019 4:44 AM [facility] Chloride 103 98 - 107 mmol/L 02/08/2019 4:44 AM T [facility] CO2 27 23 - 31 mmol/L 02/08/2019 4:44 AM [facility] Calcium 9.3 8.4 - 10.2 mg/dL 02/08/2019 4:44 AM [facility] Anion Gap 7(L) 8 - 16 mmol/L 02/08/2019 4:44 AM T [facility] BUN 20 8.4 - 25.7 mg/dL 02/08/2019 4:44 AM T [facility] Creatinine 1.17 0.73 - 1.18 mg/dL 02/08/2019 4:44 AM T [facility] eGFR by MDRD >60 mL/min/1.7 3m2 02/08/2019 4:44 AM T [facility] eGFR by MDRD >60 mL/min/1.7 3m2 02/08/2019 4:44 AM T [facility] Blood BLOOD SPECIMEN / Unknown Lab Venipuncture / Unknown 02/08/2019 2:56 AM CDT 02/08/2019 3:55 AM CDT Blaire Meek MD LAB - CHEMISTRY ROYCE KLINE [facility] [address] [place] [address] * (ABNORMAL) CBC W AUTO DIFFERENTIAL (02/08/2019 2:56 AM CDT) WBC 8.9 4.4 - 10.7 x10E9/L 02/08/2019 4:17 AM CDT [facility] WBC Corrected 02/08/2019 4:17 AM CDT [facility] RBC 3.35(L) 3.80 - 5.40 x10E12/L 02/08/2019 4:17 AM CDT [facility] Hemoglobin 8.9(L) 12.0 - 17.6 gm/dL 02/08/2019 4:17 AM CDT [facility] Hematocrit 30.8(L) 35.2 - 51.7 % 02/08/2019 4:17 AM CDT [facility] MCV 91.9 80.7 - 98.3 fl 02/08/2019 4:17 AM CDT [facility] MCH 26.6(L) 26.7 - 34.0 pg 02/08/2019 4:17 AM CDT [facility] MCHC 28.9(L) 30.8 - 35.9 gm/dL 02/08/2019 4:17 AM CDT [facility] Platelet Count 241 153 - 416 x10E9/L 02/08/2019 4:17 AM CDT [facility] RDW-CV 15.6(H) 12.1 - 14.9 % 02/08/2019 4:17 AM CDT [facility] MPV 12.1 9.4 - 12.9 fl 02/08/2019 4:17 AM CDT [facility] Neutrophils % 73.2(H) 44.0 - 73.0 % 02/08/2019 4:17 AM CDT [facility] Lymphocytes % 7.9(L) 20.0 - 43.0 % 02/08/2019 4:17 AM CDT [facility] Monocytes % 10.6 5.0 - 13.0 % 02/08/2019 4:17 AM CDT [facility] Eosinophils % 6.7(H) 0.0 - 6.0 % 02/08/2019 4:17 AM CDT [facility] Basophils % 0.7 0.0 - 2.0 % 02/08/2019 4:17 AM [facility] Immature Granulocytes 0.9 0 - 1 % 02/08/2019 4:17 AM T [facility] Neutrophil Absolute 6.49 2.01 - 7.14 x10E9/L 02/08/2019 4:17 AM [facility] Lymphocytes Absolute 0.70(L) 1.07 - 3.94 x10E9/L 02/08/2019 4:17 AM T [facility] Monocytes Absolute 0.94 0.26 - 1.07 x10E9/L 02/08/2019 4:17 AM [facility] Eosinophils Absolute 0.59(H) 0 - 0.47 x10E9/L 02/08/2019 4:17 AM [facility] Basophils Absolute 0.06 0 - 0.08 x10E9/L 02/08/2019 4:17 AM [facility] Immature Granulocytes Absolute 0.08(H) 0.00 - 0.06 x10E9/L 02/08/2019 4:17 AM [facility] nRBC Auto 0 /100 WBC 02/08/2019 4:17 AM [facility] Blood BLOOD SPECIMEN / Unknown Lab Venipuncture / Unknown 02/08/2019 2:56 AM CDT 02/08/2019 3:55 AM CDT Blaire Meek MD LAB - HEMATOLOGY ORD ERABLES [facility] [address] [place] [address] * SLIDE SCAN HEMATOLOGY (02/07/2019 4:09 AM CDT) Platelet Estimation Adequate platelets Normal, Adequate platelets 02/07/2019 6:45 AM T [facility] Comment:Platelet clumping no jordan upon slide review Blood BLOOD SPECIMEN / Unknown Lab Venipuncture / Unknown 02/07/2019 4:09 AM CDT 02/07/2019 5:15 AM CDT Michelle Pratt MD LAB - HEMATOLOGY OR DERABLES [facility] [address] [place] [address] * (ABNORMAL) CBC W AUTO DIFFERENTIAL (02/07/2019 4:09 AM CDT) WBC 10.0 4.4 - 10.7 x10E9/L 02/07/2019 5:59 AM CDT [facility] WBC Corrected 02/07/2019 5:59 AM CDT [facility] RBC 2.96(L) 3.80 - 5.40 x10E12/L 02/07/2019 5:59 AM CDT [facility] Hemoglobin 8.0(L) 12.0 - 17.6 gm/dL 02/07/2019 5:59 AM CDT [facility] Hematocrit 27.5(L) 35.2 - 51.7 % 02/07/2019 5:59 AM CDT [facility] MCV 92.9 80.7 - 98.3 fl 02/07/2019 5:59 AM CDT [facility] MCH 27.0 26.7 - 34.0 pg 02/07/2019 5:59 AM CDT [facility] MCHC 29.1(L) 30.8 - 35.9 gm/dL 02/07/2019 5:59 AM CDT [facility] Platelet Count 176 153 - 416 x10E9/L 02/07/2019 5:59 AM CDT [facility] RDW-CV 15.7(H) 12.1 - 14.9 % 02/07/2019 5:59 AM CDT [facility] MPV 13.1(H) 9.4 - 12.9 fl 02/07/2019 5:59 AM CDT [facility] Neutrophils % 79.4(H) 44.0 - 73.0 % 02/07/2019 5:59 AM CDT [facility] Lymphocytes % 5.0(L) 20.0 - 43.0 % 02/07/2019 5:59 AM CDT [facility] Monocytes % 8.6 5.0 - 13.0 % 02/07/2019 5:59 AM CDT [facility] Eosinophils % 5.7 0.0 - 6.0 % 02/07/2019 5:59 AM CDT [facility] Basophils % 0.6 0.0 - 2.0 % 02/07/2019 5:59 AM CDT [facility] Immature Granulocytes 0.7 0 - 1 % 02/07/2019 5:59 AM CDT [facility] Neutrophil Absolute 7.97(H) 2.01 - 7.14 x10E9/L 02/07/2019 5:59 AM CDT [facility] Lymphocytes Absolute 0.50(L) 1.07 - 3.94 x10E9/L 02/07/2019 5:59 AM CDT [facility] Monocytes Absolute 0.86 0.26 - 1.07 x10E9/L 02/07/2019 5:59 AM CDT [facility] Eosinophils Absolute 0.57(H) 0 - 0.47 x10E9/L 02/07/2019 5:59 AM CDT [facility] Basophils Absolute 0.06 0 - 0.08 x10E9/L 02/07/2019 5:59 AM CDT [facility] Immature Granulocytes Absolute 0.07(H) 0.00 - 0.06 x10E9/L 02/07/2019 5:59 AM CDT [facility] nRBC Auto 0 /100 WBC 02/07/2019 5:59 AM CDT [facility] Blood BLOOD SPECIMEN / Unknown Lab Venipuncture / Unknown 02/07/2019 4:09 AM CDT 02/07/2019 5:15 AM CDT Michelle Pratt MD LAB - HEMATOLOGY OR DERABLES Performing Organization Address City/State/[facility] Co de Phone Number [facility] [address] [place] [address] * (ABNORMAL) BASIC METABOLIC PANEL (CALCIUM TOTAL) (02/07/2019 4:09 AM CDT) Glucose 92 74 - 106 mg/dL 02/07/2019 6:13 AM CDT [facility] Sodium 135(L) 136 - 145 mmol/L 02/07/2019 6:13 AM CDT [facility] Potassium 4.3 3.5 - 5.1 mmol/L 02/07/2019 6:13 AM CDT [facility] Chloride 104 98 - 107 mmol/L 02/07/2019 6:13 AM CDT [facility] CO2 23 23 - 31 mmol/L 02/07/2019 6:13 AM CDT [facility] Calcium 9.0 8.4 - 10.2 mg/dL 02/07/2019 6:13 AM CDT [facility] Anion Gap 8 8 - 16 mmol/L 02/07/2019 6:13 AM CDT [facility] BUN 17 8.4 - 25.7 mg/dL 02/07/2019 6:13 AM CDT [facility] Creatinine 1.20(H) 0.73 - 1.18 mg/dL 02/07/2019 6:13 AM CDT [facility] eGFR by MDRD 60 mL/min/1.7 3m2 02/07/2019 6:13 AM CDT [facility] eGFR by MDRD >60 mL/min/1.7 3m2 02/07/2019 6:13 AM CDT [facility] Blood BLOOD SPECIMEN / Unknown Lab Venipuncture / Unknown 02/07/2019 4:09 AM CDT 02/07/2019 5:15 AM CDT Michelle Pratt MD LAB - CHEMISTRY ORD SP Performing Organization Address City/[facility]/ZIP Co de Phone Number [facility] [address] [place], [place] [id number] * VANCOMYCIN LEVEL RANDOM (02/07/2019 4:09 AM CDT) Pathologist [facility] Vancomycin Random 20.9 ug/mL 02/07/2019 6:27 AM CDT [facility] Blood BLOOD SPECIMEN / Unknown Lab Venipuncture / Unknown 02/07/2019 4:09 AM CDT 02/07/2019 5:15 AM CDT Narrative [facility] - 02/07/2019 6:27 AM CDT No reference range available for random Vancomycin levels. All results interpreted by ordering physician. Yasmany Oh MD LAB - CHEMISTRY ROYCE KLINE [facility] [address] [place], [place] [id number] * (ABNORMAL) CBC W AUTO DIFFERENTIAL (02/06/2019 4:19 AM CDT) WBC 9.1 4.4 - 10.7 x10E9/L 02/06/2019 4:53 AM CDT [facility] WBC Corrected 02/06/2019 4:53 AM CDT [facility] RBC 2.94(L) 3.80 - 5.40 x10E12/L 02/06/2019 4:53 AM CDT [facility] Hemoglobin 7.9(L) 12.0 - 17.6 gm/dL 02/06/2019 4:53 AM CDT [facility] Hematocrit 27.5(L) 35.2 - 51.7 % 02/06/2019 4:53 AM CDT [facility] MCV 93.5 80.7 - 98.3 fl 02/06/2019 4:53 AM CDT [facility] MCH 26.9 26.7 - 34.0 pg 02/06/2019 4:53 AM CDT [facility] MCHC 28.7(L) 30.8 - 35.9 gm/dL 02/06/2019 4:53 AM CDT [facility] Platelet Count 189 153 - 416 x10E9/L 02/06/2019 4:53 AM CDT [facility] RDW-CV 15.8(H) 12.1 - 14.9 % 02/06/2019 4:53 AM CDT [facility] MPV 12.1 9.4 - 12.9 fl 02/06/2019 4:53 AM CDT [facility] Neutrophils % 73.8(H) 44.0 - 73.0 % 02/06/2019 4:53 AM CDT [facility] Lymphocytes % 5.9(L) 20.0 - 43.0 % 02/06/2019 4:53 AM CDT [facility] Monocytes % 10.9 5.0 - 13.0 % 02/06/2019 4:53 AM CDT [facility] Eosinophils % 8.2(H) 0.0 - 6.0 % 02/06/2019 4:53 AM CDT [facility] Basophils % 0.4 0.0 - 2.0 % 02/06/2019 4:53 AM CDT [facility] Immature Granulocytes 0.8 0 - 1 % 02/06/2019 4:53 AM CDT [facility] Neutrophil Absolute 6.68 2.01 - 7.14 x10E9/L 02/06/2019 4:53 AM CDT [facility] Lymphocytes Absolute 0.53(L) 1.07 - 3.94 x10E9/L 02/06/2019 4:53 AM CDT [facility] Monocytes Absolute 0.99 0.26 - 1.07 x10E9/L 02/06/2019 4:53 AM CDT [facility] Eosinophils Absolute 0.74(H) 0 - 0.47 x10E9/L 02/06/2019 4:53 AM CDT [facility] Basophils Absolute 0.04 0 - 0.08 x10E9/L 02/06/2019 4:53 AM CDT [facility] Immature Granulocytes Absolute 0.07(H) 0.00 - 0.06 x10E9/L 02/06/2019 4:53 AM CDT [facility] nRBC Auto 0 /100 WBC 02/06/2019 4:53 AM CDT [facility] Blood BLOOD SPECIMEN / Unknown Lab Venipuncture / Unknown 02/06/2019 4:19 AM CDT 02/06/2019 4:42 AM CDT Michelle Pratt MD LAB - HEMATOLOGY OR DERABLES Performing Organization Address City/State/[facility] Co de Phone Number [facility] [address] [place] [address] * (ABNORMAL) BASIC METABOLIC PANEL (CALCIUM TOTAL) (02/06/2019 4:19 AM CDT) Glucose 110(H) 74 - 106 mg/dL 02/06/2019 5:24 AM CDT [facility] Sodium 136 136 - 145 mmol/L 02/06/2019 5:24 AM CDT [facility] Potassium 4.7 3.5 - 5.1 mmol/L 02/06/2019 5:24 AM CDT [facility] Chloride 106 98 - 107 mmol/L 02/06/2019 5:24 AM CDT [facility] CO2 23 23 - 31 mmol/L 02/06/2019 5:24 AM CDT [facility] Calcium 8.8 8.4 - 10.2 mg/dL 02/06/2019 5:24 AM CDT [facility] Anion Gap 7(L) 8 - 16 mmol/L 02/06/2019 5:24 AM CDT [facility] BUN 17 8.4 - 25.7 mg/dL 02/06/2019 5:24 AM CDT [facility] Creatinine 1.23(H) 0.73 - 1.18 mg/dL 02/06/2019 5:24 AM CDT [facility] eGFR by MDRD 58 mL/min/1.7 3m2 02/06/2019 5:24 AM CDT [facility] eGFR by MDRD >60 mL/min/1.7 3m2 02/06/2019 5:24 AM CDT [facility] Blood BLOOD SPECIMEN / Unknown Lab Venipuncture / Unknown 02/06/2019 4:19 AM CDT 02/06/2019 4:41 AM CDT Michelle Pratt MD LAB - CHEMISTRY ORD ERABLES Performing Organization Address [facility] Co de Phone Number [facility] [address] [place] [phone] * VANCOMYCIN LEVEL RANDOM (02/06/2019 4:19 AM CDT) Vancomycin Random 19.2 ug/mL 02/06/2019 5:26 AM CDT [facility] Blood BLOOD SPECIMEN / Unknown Lab Venipuncture / Unknown 02/06/2019 4:19 AM CDT 02/06/2019 4:41 AM CDT Narrative [facility] - 02/06/2019 5:26 AM CDT No reference range available for random Vancomycin levels. All results interpreted by ordering physician. Michelle Pratt MD LAB - CHEMISTRY ORD ERABLES Performing Organization Address City/[facility] Co de Phone Number [facility] [address] [place] [phone] * (ABNORMAL) CBC W AUTO DIFFERENTIAL (02/05/2019 2:38 AM CDT) WBC 10.6 4.4 - 10.7 x10E9/L 02/05/2019 3:27 AM CDT [facility] WBC Corrected 02/05/2019 3:27 AM CDT [facility] RBC 3.08(L) 3.80 - 5.40 x10E12/L 02/05/2019 3:27 AM [facility] Hemoglobin 8.5(L) 12.0 - 17.6 gm/dL 02/05/2019 3:27 AM [facility] Hematocrit 27.9(L) 35.2 - 51.7 % 02/05/2019 3:27 AM [facility] MCV 90.6 80.7 - 98.3 fl 02/05/2019 3:27 AM [facility] MCH 27.6 26.7 - 34.0 pg 02/05/2019 3:27 AM [facility] MCHC 30.5(L) 30.8 - 35.9 gm/dL 02/05/2019 3:27 AM [facility] Platelet Count 220 153 - 416 x10E9/L 02/05/2019 3:27 AM [facility] [facility] RDW-CV 15.9(H) 12.1 - 14.9 % 02/05/2019 3:27 AM [facility] MPV 12.0 9.4 - 12.9 fl 02/05/2019 3:27 AM [facility] Neutrophils % 75.3(H) 44.0 - 73.0 % 02/05/2019 3:27 AM [facility] Lymphocytes % 5.2(L) 20.0 - 43.0 % 02/05/2019 3:27 AM [facility] Monocytes % 10.2 5.0 - 13.0 % 02/05/2019 3:27 AM [facility] Eosinophils % 8.5(H) 0.0 - 6.0 % 02/05/2019 3:27 AM [facility] Basophils % 0.2 0.0 - 2.0 % 02/05/2019 3:27 AM [facility] Immature Granulocytes 0.6 0 - 1 % 02/05/2019 3:27 AM [facility] Neutrophil Absolute 7.96(H) 2.01 - 7.14 x10E9/L 02/05/2019 3:27 AM [facility] Lymphocytes Absolute 0.55(L) 1.07 - 3.94 x10E9/L 02/05/2019 3:27 AM [facility] Monocytes Absolute 1.08(H) 0.26 - 1.07 x10E9/L 02/05/2019 3:27 AM CDT [facility] Eosinophils Absolute 0.90(H) 0 - 0.47 x10E9/L 02/05/2019 3:27 AM CDT [facility] Basophils Absolute 0.02 0 - 0.08 x10E9/L 02/05/2019 3:27 AM CDT [facility] Immature Granulocytes Absolute 0.06 0.00 - 0.06 x10E9/L 02/05/2019 3:27 AM CDT [facility] nRBC Auto 0 /100 WBC 02/05/2019 3:27 AM CDT [facility] Blood BLOOD SPECIMEN / Unknown Lab Venipuncture / Unknown 02/05/2019 2:38 AM CDT 02/05/2019 3:14 AM CDT Michelle Pratt MD LAB - HEMATOLOGY OR DERABLES Performing Organization Address City/State/[facility] Co de Phone Number [facility] [address], [place] [id number] * (ABNORMAL) BASIC METABOLIC PANEL (CALCIUM TOTAL) (02/05/2019 2:38 AM CDT) Glucose 118(H) 74 - 106 mg/dL 02/05/2019 3:41 AM CDT [facility] Sodium 136 136 - 145 mmol/L 02/05/2019 3:41 AM CDT [facility] Potassium 4.2 3.5 - 5.1 mmol/L 02/05/2019 3:41 AM CDT [facility] Chloride 107 98 - 107 mmol/L 02/05/2019 3:41 AM CDT [facility] CO2 22(L) 23 - 31 mmol/L 02/05/2019 3:41 AM CDT [facility] Calcium 8.6 8.4 - 10.2 mg/dL 02/05/2019 3:41 AM CDT [facility] Anion Gap 7(L) 8 - 16 mmol/L 02/05/2019 3:41 AM CDT [facility] BUN 20 8.4 - 25.7 mg/dL 02/05/2019 3:41 AM CDT [facility] Creatinine 1.24(H) 0.73 - 1.18 mg/dL 02/05/2019 3:41 AM CDT [facility] eGFR by MDRD 58 mL/min/1.7 3m2 02/05/2019 3:41 AM CDT [facility] eGFR by MDRD >60 mL/min/1.7 3m2 02/05/2019 3:41 AM CDT [facility] Blood BLOOD SPECIMEN / Unknown Lab Venipuncture / Unknown 02/05/2019 2:38 AM CDT 02/05/2019 3:14 AM CDT Michelle Pratt MD LAB - CHEMISTRY ORD ERAMAMTA Performing Organization Address [facility]/ZIP Co de Phone Number [facility] [address] [place] [address] * VANCOMYCIN LEVEL RANDOM (02/05/2019 2:38 AM CDT) Vancomycin Random 21.8 ug/mL 02/05/2019 3:47 AM CDT [facility] Blood BLOOD SPECIMEN / Unknown Lab Venipuncture / Unknown 02/05/2019 2:38 AM CDT 02/05/2019 3:14 AM CDT Narrative [facility] - 02/05/2019 3:47 AM CDT No reference range available for random Vancomycin levels. All results interpreted by ordering physician. Yasmany Oh MD LAB - CHEMISTRY ROYCE KLINE Performing Organization Address [facility]/ZIP Co de Phone Number [facility] [address] [place] [address] * GLUCOSE - POINT OF CARE (02/04/2019 5:16 PM CDT) Glucose WB/POC 101 70 - 106 mg/dL 02/05/2019 7:00 AM CDT [facility] Specimen Type Arterial/C apillary 02/05/2019 7:00 AM CDT [facility] Blood BLOOD SPECIMEN / Unknown 02/04/2019 5:16 PM CDT 02/05/2019 6:59 AM CDT Michelle Pratt MD LAB - POINT OF CARE ORDERABLES Performing Organization Address City/[facility]/ZIP Co de Phone Number [facility] [address] [place] [address] * (ABNORMAL) VANCOMYCIN LEVEL TROUGH (02/04/2019 2:12 PM CDT) [facility] Vancomycin Trough 28.6(HH) 10.0 - 20.0 ug/mL 02/04/2019 2:35 PM CDT [facility] Blood BLOOD SPECIMEN / Unknown Lab Venipuncture / Unknown 02/04/2019 2:12 PM CDT 02/04/2019 2:16 PM CDT Yasmany Oh MD LAB - CHEMISTRY ROYCE KLINE Performing Organization Address [facility] Co de Phone Number [facility] [address] [place] [phone] * (ABNORMAL) GLUCOSE - POINT OF CARE (02/04/2019 12:09 PM CDT) [facility] Glucose WB/POC 111(H) 70 - 106 mg/dL 02/04/2019 2:47 PM CDT [facility] Specimen Type Arterial/C apillary 02/04/2019 2:47 PM CDT [facility] Blood BLOOD SPECIMEN / Unknown 02/04/2019 12:09 PM CDT 02/04/2019 2:46 PM CDT Michelle Pratt MD LAB - POINT OF CARE ORDERABLES Performing Organization Address [facility]/ZIP Co de Phone Number [facility] [address] [place] [phone] * (ABNORMAL) CULTURE WOUND+GRAM STAIN (02/04/2019 11:29 AM CDT) [facility] Culture Rare Staphylococcus aureus methicillin-resistan t (MRSA)(A) UMESH 02/06/2019 11:57 AM CDT [facility] Gram Stain Heavy Polymorphonuclear cells 02/06/2019 11:57 AM CDT [facility] Gram Stain Moderate Red blood cells 02/06/2019 11:57 AM CDT [facility] Gram Stain No organisms seen 019 11:57 AM CDT [facility] Microbiology ENTIRE HIP REGION / Unknown Collection / Unknown 02/04/2019 11:29 AM CDT 02/04/2019 12:01 PM CDT Narrative [facility] - 02/06/2019 11:57 AM CDT [...] Larry Alexander MD LAB - MICROBIOLOGY ORDERABLES [facility] [address] [place] [address], [facility] [phone] * CULTURE ANAEROBE (02/04/2019 11:29 AM CDT) Culture No anaerobic organisms isolated UMESH 02/09/2019 11:40 AM T [facility] Microbiology ENTIRE HIP REGION / Unknown Collection / Unknown 02/04/2019 11:29 AM CDT 02/04/2019 12:08 PM CDT Narrative [facility] - 02/09/2019 11:40 AM CDT Surgical Description: Right Hip Larry Alexander MD LAB - MICROBIOLOGY ORDERABLES [facility] [address] [place] [address], [facility] [phone] * (ABNORMAL) CULTURE TISSUE+GRAM STAIN (02/04/2019 11:29 AM CDT) Culture Rare Staphylococcus aureus methicillin-resistan t (MRSA)(AA) UMESH 02/06/2019 11:37 AM CDT [facility] Gram Stain Moderate Polymorphonuclear cells 02/06/2019 11:37 AM CDT [facility] Gram Stain Heavy Red blood cells 02/06/2019 11:37 AM CDT [facility] Gram Stain No organisms seen 019 11:37 AM [facility] Microbiology ENTIRE HIP REGION / Unknown Collection / Unknown 02/04/2019 11:29 AM CDT 02/04/2019 12:08 PM CDT Narrative [facility] - 02/06/2019 11:37 AM CDT [...] LAB - MICROBIOLOGY ORDERABLES Performing Organization Address [facility]/ZIP Co de Phone Number [facility] [address] [place] [address], [facility] [phone] * CULTURE ANAEROBE (02/04/2019 11:29 AM CDT) Pathologist [facility] Culture No anaerobic organisms isolated UMESH 02/09/2019 11:40 AM CDT [facility] Microbiology ENTIRE HIP REGION / Unknown Collection / Unknown 02/04/2019 11:29 AM CDT 02/04/2019 12:08 PM CDT Narrative [facility] - 02/09/2019 11:40 AM CDT Surgical Description: Right Hip Larry Alexander MD LAB - MICROBIOLOGY ORDERABLES Performing Organization Address [facility] Co de Phone Number [facility] [address] [place] [address], [facility] [phone] * GLUCOSE - POINT OF CARE (02/04/2019 8:17 AM CDT) [facility] Glucose WB/POC 101 70 - 106 mg/dL 02/04/2019 8:48 AM CDT [facility] Specimen Type Arterial/C apillary 02/04/2019 8:48 AM CDT [facility] Blood BLOOD SPECIMEN / Unknown 02/04/2019 8:17 AM CDT 02/04/2019 8:48 AM CDT Michelle Pratt MD LAB - POINT OF CARE ORDERABLES Performing Organization Address City/[facility]/ZIP Co de Phone Number [facility] [address] [place] [address] * PT PTT PANEL (02/04/2019 7:37 AM CDT) Pathologist [facility] PT 11.1 9.5 - 11.6 sec 02/04/2019 9:12 AM CDT [facility] INR 1.0 0.9 - 1.1 02/04/2019 9:12 AM CDT [facility] PTT 26.4 21.0 - 32.0 sec 02/04/2019 9:12 AM CDT [facility] Blood BLOOD SPECIMEN / Unknown 02/04/2019 7:37 AM CDT 02/04/2019 9:[address] [facility] - 02/04/2019 9:12 AM CDT Conventional Warfarin Anticoagulant Therapy: INR Reference Range: ??2.0-3.0 Intensive Warfarin Anticoagulant Therapy: INR Reference Range: ? 2.5-3.5 Heparin Therapeutic Range for PTT: 50.5 - 74.3 seconds. Michelle Pratt MD LAB - COAGULATION O RDERABLES [facility] [address] [place] [address] * (ABNORMAL) CBC W/O DIFFERENTIAL (02/04/2019 7:37 AM CDT) WBC 10.6 4.4 - 10.7 x10E9/L 02/04/2019 8:35 AM CDT [facility] RBC 3.26(L) 3.80 - 5.40 x10E12/L 02/04/2019 8:35 AM CDT [facility] Hemoglobin 8.7(L) 12.0 - 17.6 gm/dL 02/04/2019 8:35 AM CDT [facility] Hematocrit 30.0(L) 35.2 - 51.7 % 02/04/2019 8:35 AM CDT [facility] MCV 92.0 80.7 - 98.3 fl 02/04/2019 8:35 AM CDT [facility] MCH 26.7 26.7 - 34.0 pg 02/04/2019 8:35 AM CDT [facility] MCHC 29.0(L) 30.8 - 35.9 gm/dL 02/04/2019 8:35 AM CDT [facility] Platelet Count 212 153 - 416 x10E9/L 02/04/2019 8:35 AM CDT [facility] RDW-CV 15.9(H) 12.1 - 14.9 % 02/04/2019 8:35 AM T [facility] MPV 11.9 9.4 - 12.9 fl 02/04/2019 8:35 AM T [facility] Blood BLOOD SPECIMEN / Unknown Lab Venipuncture / Unknown 02/04/2019 7:37 AM CDT 02/04/2019 8:25 AM CDT Jason Blackburn MD LAB - HEMATOLOGY ORD ERABLES [facility] [address] [place] [address] * (ABNORMAL) URINALYSIS REFLEX MICROSCOPIC REFLEX CULTURE (02/04/2019 6:17 AM CDT) Color UA Yellow Straw, Yellow 02/04/2019 6:43 AM [facility] Clarity UA Cloudy(A) Clear 02/04/2019 6:43 AM [facility] Glucose UA Negative Negative 02/04/2019 6:43 AM [facility] Bilirubin UA Negative Negative 02/04/2019 6:43 AM [facility] Ketone UA Trace(A) Negative 02/04/2019 6:43 AM [facility] Specific [place] UA 1.021 1.005 - 1.030 02/04/2019 6:43 AM [facility] Blood UA Negative Negative 02/04/2019 6:43 AM [facility] pH UA 5.0 5.0 - 8.0 pH 02/04/2019 6:43 AM [facility] Protein UA Negative Negative 02/04/2019 6:43 AM [facility] Urobilinogen UA Negative Negative mg/dL 02/04/2019 6:43 AM [facility] Nitrite UA Negative Negative 02/04/2019 6:43 AM [facility] Leukocyte UA Negative Negative 02/04/2019 6:43 AM [facility] Urine Microscopy Urine microscopy not indicated 02/04/2019 6:43 AM [facility] Reflex Status Culture not indicated 02/04/2019 6:43 AM [facility] Urine URINE SPECIMEN OBTAINED BY CLEAN CATCH PROCEDURE / Unknown Collection / Unknown 02/04/2019 6:17 AM CDT 02/04/2019 6:24 AM CDT Narrative [facility] - 02/04/2019 6:43 AM CDT Ascorbic Acid can cause false negative urine strip tests for blood, glucose, nitrite, and bilirubin. Yasmany Oh MD LAB - URINALYSIS ORD ERABLES Performing Organization Address [facility]/ZIP Co sc Phone Number [facility] [address] [place] [address] * (ABNORMAL) BASIC METABOLIC PANEL (CALCIUM TOTAL) (02/04/2019 2:34 AM CDT) [facility] Glucose 114(H) 74 - 106 mg/dL 02/04/2019 4:13 AM CDT [facility] Sodium 135(L) 136 - 145 mmol/L 02/04/2019 4:13 AM CDT [facility] Potassium 3.7 3.5 - 5.1 mmol/L 02/04/2019 4:13 AM CDT [facility] Chloride 106 98 - 107 mmol/L 02/04/2019 4:13 AM CDT [facility] CO2 21(L) 23 - 31 mmol/L 02/04/2019 4:13 AM CDT [facility] Calcium 8.6 8.4 - 10.2 mg/dL 02/04/2019 4:13 AM T [facility] Anion Gap 8 8 - 16 mmol/L 02/04/2019 4:13 AM CDT [facility] BUN 21 8.4 - 25.7 mg/dL 02/04/2019 4:13 AM CDT [facility] Creatinine 1.13 0.73 - 1.18 mg/dL 02/04/2019 4:13 AM CDT [facility] eGFR by MDRD >60 mL/min/1.7 3m2 02/04/2019 4:13 AM CDT [facility] eGFR by MDRD >60 mL/min/1.7 3m2 02/04/2019 4:13 AM T [facility] Blood BLOOD SPECIMEN / Unknown Lab Venipuncture / Unknown 02/04/2019 2:34 AM CDT 02/04/2019 3:32 AM CDT Michelle Pratt MD LAB - CHEMISTRY ORD ERABLES [facility] [address] [place] [address] * PRETEST TYPE & SCREEN (02/04/2019 2:34 AM CDT) ABO A 02/04/2019 4:07 AM CDT [facility] Rh Type Positive 02/04/2019 4:07 AM CDT [facility] Comment:History checked. Col lect retype. Antibody Screen Negative 02/04/2019 4:07 AM CDT [facility] Blood Bank BLOOD SPECIMEN / Unknown Lab Venipuncture / Unknown 02/04/2019 2:34 AM CDT 02/04/2019 3:34 AM CDT Jeffrey Angelo MD LAB - BLOOD BANK OR DERABLES Performing Organization Address [facility] Co de Phone Number [facility] [address] [place] [address] * (ABNORMAL) GLUCOSE - POINT OF CARE (02/03/2019 8:35 PM CDT) Glucose WB/POC 131(H) 70 - 106 mg/dL 02/03/2019 9:51 PM CDT [facility] Specimen Type Arterial/C apillary 02/03/2019 9:51 PM CDT [facility] Blood BLOOD SPECIMEN / Unknown 02/03/2019 8:35 PM CDT 02/03/2019 9:51 PM CDT Michelle Pratt MD LAB - POINT OF CARE ORDERABLES Performing Organization Address [facility] Co de Phone Number [facility] [address] [place] [address] * (ABNORMAL) GLUCOSE - POINT OF CARE (02/03/2019 5:22 PM CDT) Glucose WB/POC 114(H) 70 - 106 mg/dL 02/03/2019 7:05 PM CDT [facility] Specimen Type Arterial/C apillary 02/03/2019 7:05 PM CDT [facility] Blood BLOOD SPECIMEN / Unknown 02/03/2019 5:22 PM CDT 02/03/2019 7:05 PM CDT Michelle Pratt MD LAB - POINT OF CARE ORDERABLES Performing Organization Address [facility] Co de Phone Number [facility] [address] [place] [address] * EKG 12-LEAD (02/03/2019 4:29 PM CDT) Ventricular Rate 81 BPM [facility] MUSE Atrial Rate 166 BPM [facility] MUSE QRS Duration ms 92 ms [facility] MUSE Q-T Interval ms 372 ms [facility] MUSE QTC Calculation (Bezet) 432 ms SM MUSE Calculated R [place] -6 degrees [facility] MUSE Calculated T [place] 25 degrees [facility] MUSE Interpretation EKG ATRIAL FIBRILLATION LOW VOLTAGE QRS SEPTAL INFARCT , AGE UNDETERMINED ABNORMAL ECG Confirmed by DO Campoverde Stephanie ([id number]) on 02/06/2019 9:13:20 AM [facility] MUSE 02/03/2019 4:29 PM CDT 02/06/2019 9:13 AM CDT Michelle Pratt MD ECG ORDERABLES Performing Organization Address [facility] de Phone Number [facility] MUSE * (ABNORMAL) GLUCOSE - POINT OF CARE (02/03/2019 1:00 PM CDT) Glucose WB/POC 155(H) 70 - 106 mg/dL 02/03/2019 7:05 PM CDT [facility] Specimen Type Arterial/C apillary 02/03/2019 7:05 PM CDT [facility] Blood BLOOD SPECIMEN / Unknown 02/03/2019 1:00 PM CDT 02/03/2019 7:05 PM CDT Michelle Pratt MD LAB - POINT OF CARE ORDERABLES Performing Organization Address [facility] Co de Phone Number [facility] [address] [place] [address] * GLUCOSE - POINT OF CARE (02/03/2019 10:10 AM CDT) Glucose WB/POC 106 70 - 106 mg/dL 02/03/2019 7:05 PM CDT [facility] Specimen Type Arterial/C apillary 02/03/2019 7:05 PM CDT [facility] Blood BLOOD SPECIMEN / Unknown 02/03/2019 10:10 AM CDT 02/03/2019 7:05 PM CDT Michelle Pratt MD LAB - POINT OF CARE ORDERABLES [facility] [address] [place] [address] * XR FEMUR 2 VW RIGHT (02/03/2019 [...] - 2.2 mmol/L 02/03/2019 5:15 AM CDT [facility] Blood BLOOD SPECIMEN / Unknown Lab Venipuncture / Unknown 02/03/2019 4:13 AM CDT 02/03/2019 4:39 AM CDT Yasmany Oh MD LAB - CHEMISTRY ROYCE KLINE Performing Organization Address City/[facility]/ZIP Co de Phone Number [facility] [address] [place] [phone] * HEMOGLOBIN A1C (02/03/2019 1:06 AM CDT) Hemoglobin A1c 5.8 4.0 - 6.1 % 02/03/2019 10:11 AM CDT [facility] Estimated Average Glucose 120 mg/dL 02/03/2019 10:11 AM CDT [facility] Blood BLOOD SPECIMEN / Unknown Lab Venipuncture / Unknown 02/03/2019 1:06 AM CDT 02/03/2019 1:16 AM CDT Michelle Pratt MD LAB - CHEMISTRY RAFFY [place] [facility] [address] [place] [id number] * PT-INR (02/03/2019 1:06 AM CDT) PT 11.3 9.5 - 11.6 sec 02/03/2019 1:36 AM CDT [facility] INR 1.1 0.9 - 1.1 02/03/2019 1:36 AM CDT [facility] Blood BLOOD SPECIMEN / Unknown Lab Venipuncture / Unknown 02/03/2019 1:06 AM CDT 02/03/2019 1:[address] [facility] LABORATORY - 02/03/2019 1:36 AM CDT Conventional Warfarin Anticoagulant Therapy: INR Reference Range: ??2.0-3.0 Intensive Warfarin Anticoagulant Therapy: INR Reference Range: ? 2.5-3.5 Yasmany Oh MD LAB - COAGULATION OR DERABLES Performing Organization Address City/State/[facility] Co de Phone Number [facility] [address] [place] [address] * (ABNORMAL) COMPREHENSIVE METABOLIC PANEL (02/03/2019 1:06 AM CDT) [facility] Glucose 112(H) 74 - 106 mg/dL 02/03/2019 1:41 AM CDT [facility] Sodium 134(L) 136 - 145 mmol/L 02/03/2019 1:41 AM CDT [facility] Potassium 4.3 3.5 - 5.1 mmol/L 02/03/2019 1:41 AM CDT [facility] Chloride 101 98 - 107 mmol/L 02/03/2019 1:41 AM CDT [facility] CO2 25 23 - 31 mmol/L 02/03/2019 1:41 AM CDT [facility] Calcium 9.5 8.4 - 10.2 mg/dL 02/03/2019 1:41 AM CDT [facility] Anion Gap 8 8 - 16 mmol/L 02/03/2019 1:41 AM CDT [facility] BUN 19 8.4 - 25.7 mg/dL 02/03/2019 1:41 AM CDT [facility] Creatinine 1.22(H) 0.73 - 1.18 mg/dL 02/03/2019 1:41 AM CDT [facility] Alkaline Phosphatase 304(H) 40 - 150 U/L 02/03/2019 1:41 AM CDT [facility] ALT 21 13 - 61 U/L 02/03/2019 1:41 AM CDT [facility] AST 20 5 - 34 U/L 02/03/2019 1:41 AM CDT [facility] Protein Total 7.0 6.4 - 8.3 gm/dL 02/03/2019 1:41 AM CDT [facility] Albumin 3.1(L) 3.2 - 4.6 gm/dL 02/03/2019 1:41 AM CDT [facility] Bilirubin Total 1.0 0.2 - 1.2 mg/dL 02/03/2019 1:41 AM CDT [facility] eGFR by MDRD 59 mL/min/1.7 3m2 02/03/2019 1:41 AM CDT [facility] eGFR by MDRD >60 mL/min/1.7 3m2 02/03/2019 1:41 AM CDT [facility] Blood BLOOD SPECIMEN / Unknown Lab Venipuncture / Unknown 02/03/2019 1:06 AM CDT 02/03/2019 1:16 AM CDT Yasmany Oh MD [facility] Organization Address City/State/ZIP Co de Phone Number [facility] [id number], [place] [id number] * (ABNORMAL) CBC W AUTO DIFFERENTIAL (02/03/2019 1:06 AM CDT) WBC 14.2(H) 4.4 - 10.7 x10E9/L 02/03/2019 1:22 AM CDT [facility] WBC Corrected 02/03/2019 1:22 AM CDT [facility] RBC 3.64(L) 3.80 - 5.40 x10E12/L 02/03/2019 1:22 AM CDT [facility] Hemoglobin 9.9(L) 12.0 - 17.6 gm/dL 02/03/2019 1:22 AM CDT [facility] Hematocrit 32.9(L) 35.2 - 51.7 % 02/03/2019 1:22 AM CDT [facility] MCV 90.4 80.7 - 98.3 fl 02/03/2019 1:22 AM CDT [facility] MCH 27.2 26.7 - 34.0 pg 02/03/2019 1:22 AM CDT [facility] MCHC 30.1(L) 30.8 - 35.9 gm/dL 02/03/2019 1:22 AM CDT [facility] Platelet Count 241 153 - 416 x10E9/L 02/03/2019 1:22 AM CDT [facility] RDW-CV 15.9(H) 12.1 - 14.9 % 02/03/2019 1:22 AM CDT [facility] MPV 12.1 9.4 - 12.9 fl 02/03/2019 1:22 AM CDT [facility] Neutrophils % 79.6(H) 44.0 - 73.0 % 02/03/2019 1:22 AM T [facility] Lymphocytes % 4.7(L) 20.0 - 43.0 % 02/03/2019 1:22 AM [facility] Monocytes % 9.6 5.0 - 13.0 % 02/03/2019 1:22 AM T [facility] Eosinophils % 5.2 0.0 - 6.0 % 02/03/2019 1:22 AM T [facility] Basophils % 0.4 0.0 - 2.0 % 02/03/2019 1:22 AM T [facility] Immature Granulocytes 0.5 0 - 1 % 02/03/2019 1:22 AM [facility] Neutrophil Absolute 11.28(H) 2.01 - 7.14 x10E9/L 02/03/2019 1:22 AM [facility] Lymphocytes Absolute 0.66(L) 1.07 - 3.94 x10E9/L 02/03/2019 1:22 AM T [facility] Monocytes Absolute 1.36(H) 0.26 - 1.07 x10E9/L 02/03/2019 1:22 AM [facility] Eosinophils Absolute 0.73(H) 0 - 0.47 x10E9/L 02/03/2019 1:22 AM [facility] Basophils Absolute 0.05 0 - 0.08 x10E9/L 02/03/2019 1:22 AM [facility] Immature Granulocytes Absolute 0.07(H) 0.00 - 0.06 x10E9/L 02/03/2019 1:22 AM [facility] nRBC Auto 0 /100 WBC 02/03/2019 1:22 AM [facility] Blood BLOOD SPECIMEN / Unknown Lab Venipuncture / Unknown 02/03/2019 1:06 AM CDT 02/03/2019 1:16 AM CDT Yasmany Oh MD LAB - HEMATOLOGY ORD ERABLES [facility] [address] [place] [address] * LACTIC ACID BLOOD (02/03/2019 1:06 AM CDT) Lactic Acid 0.8 0.5 - 2.2 mmol/L 02/03/2019 1:37 AM CDT [facility] Blood BLOOD SPECIMEN / Unknown Lab Venipuncture / Unknown 02/03/2019 1:06 AM CDT 02/03/2019 1:16 AM CDT Yasmany Oh MD LAB - CHEMISTRY ROYCE KLINE Performing Organization Address [facility] de Phone Number [facility] [address] [place] [address] * CULTURE BLOOD (02/02/2019 10:38 PM CDT) Culture No growth day 5 UMESH 02/08/2019 2:31 AM CDT [facility] Blood PERIPHERAL BLOOD / Unknown Lab Venipuncture / Unknown 02/02/2019 10:38 PM CDT 02/02/2019 10:44 PM CDT Yasmany Oh MD LAB - MICROBIOLOGY O RIO Performing Organization Address [facility] de Phone Number [facility] [address] [place] [address], [facility] [phone] * CULTURE BLOOD (02/02/2019 10:38 PM CDT) Culture No growth day 5 UMESH 02/08/2019 2:31 AM CDT [facility] Blood PERIPHERAL BLOOD / Unknown Lab Venipuncture / Unknown 02/02/2019 10:38 PM CDT 02/02/2019 10:44 PM CDT Yasmany Oh MD LAB - MICROBIOLOGY O RDERAMAMTA Performing Organization Address [facility] Co de Phone Number [facility] [address] [place] [address], [facility] [phone] * LACTIC ACID BLOOD (02/02/2019 10:38 PM CDT) Lactic Acid 0.9 0.5 - 2.2 mmol/L 02/02/2019 11:00 PM CDT [facility] Blood BLOOD SPECIMEN / Unknown Lab Venipuncture / Unknown 02/02/2019 10:38 PM CDT 02/02/2019 10:44 PM CDT Yasmany Oh MD LAB - CHEMISTRY ROYCE KLINE [facility] Organization Address City/State/ZIP Co de Phone Number [facility] [address] [place] [address] documented in this encounter Visit Diagnoses Not [...] 0.9% nacl irrigation solution PRN, Starting on Tue02/04/19 at 1154, Until Tue02/04/19 at 1155, Intra-op $ Given 02/04/2019 11:54 AM CDT 3,000 mL Operative Site acetaminophen (TYLENOL) tablet 650 mg 650 [...] 0900, Last dose on Tue02/02/20 at 0900 $ Given 02/15/2019 10:25 AM [...] only; do not administer IV vancomycin (VANCOCIN) IV dose per pharmacy Does [...] mL /hr warfarin (COUMADIN) dose per pharmacy [facility] Other, DAILY AT 1700, 365 doses, First dose on 02/11/19 at 1700, Last dose on Tue02/10/20 at [...] duplicate row)1647 ($ Given - Provider: Efrain Rojas, RN)2152 ($ Given - Provider: Chris Carter, RN) 0509 ($ Given - Provider: Aurora Granados RN) 0.9% NaCl injection 10-40 mL 10-40 [...] duplicate row)1424 ($ Given - Provider: Cathy Baker RN)2050 ($ Given - Provider: Chris Carter [...] RCP)1002 ($ Given - Provider: Citlalli Daniels WELDING SETTER)1549 ($ Given - Provider: Citlalli Daniels WELDING SETTER)2123 ($ Given - Provider: Lyndsay Kolb WELDING SETTER) 0224 ($ Given - Provider: Lyndsay Kolb RCP)0820 ($ Given - Provider: Neva Ratliff WELDING SETTER)1355 ($ Given - Provider: Neva Ratliff RCP)2019 ($ Given - Provider: Dru Magallon WELDING SETTER) 0107 ($ Given - Provider: Dru Magallon [...] 1026 ($ Given - Provider: Efrain Rojas RN)2152 ($ Given - Provider: Chris Carter RN) 09 ($ Given - Provider: Cathy Baker RN)2048 ($ Given - Provider: Chris Carter RN) 102 ($ Given - Provider: Gladis Pacheco RN) [...] 0820 ($ Given - Provider: Neva Ratliff WELDING SETTER)2019 ($ Given - Provider: Dru Magallon RCP) [...] 09 ($ Given - Provider: Cathy Baker RN)2049 ($ Given - Provider: Chris Carter RN) 103 ($ Given - Provider: Gladis Pacheco RN) [...] ($ Given - Provider: Gladis Pacheco RN) polyethylene glycol 3350 (MIRALAX) packet 17 g [...] ($ New Bag/Syringe - Provider: Efrain Rojas RN)215 (Stopped - Provider: Chris Carter RN) vancomycin [...] Augustin RN) warfarin (COUMADIN) dose per pharmacy [facility] Other, DAILY AT 1700, 365 doses, First dose on 02/11/19 at 1700, Last dose on 02/10/20 at 1700, Call pharmacy daily for warfarin order if not already available. Do not delete or modify this order unless you are discontinuing warfarin!, Diagnosis requiring anticoagulation? chronic afib, INR GOAL: 2.0-2.5 1646 (*Reviewed - Provider: Efrain Rojas RN) 1517 (*Reviewed - Provider: Cathy Baker RN) 1811 (*Reviewed - Provider: Gladis Pacheco RN) warfarin (COUMADIN) tablet 4 mg (COMPLETED) 4 mg, Oral, ONCE WARFARIN, 1 dose, On Tue02/14/19 at 1700, . WASTE DISPOSAL INSTRUCTIONS: P-Listed item. Special Disposal Required. . 1746 ($ Given - Provider: Cathy Baker RN) warfarin (COUMADIN) tablet 5 mg (COMPLETED) [...] . 1810 ($ Given - Provider: Gladis Pacheco RN) zinc sulfate (ZINCATE) capsule 220 mg 220 mg, Oral, DAILY, First dose on 02/03/19 at 0900, Until Discontinued 1027 ($ Given - Provider: Efrain Rojas RN) 0906 ($ Given - Provider: Cathy Baker RN) 1025 ($ Given - Provider: Gladis Pacheco RN) PRN Medication Order 02/13/2019 02/14/2019 02/15/2019 [...] NPO and withOUT IV Access, Starting on Tue02/03/19 at 0958, [...] 2009 2102 ($ Given - Provider: Chris Carter RN) ondansetron (ZOFRAN) injection 4 mg 4 mg, Intravenous, EVERY 6 HOURS PRN, Nausea/Vomiting, Starting on 02/02/19 at 2217, Until Kellen 02/15/19 at 2009, Administer over 2 to 5 minutes. oxyCODONE-acetaminophen (PERCOCET) 10-325 MG tablet 1 tablet 1 tablet, Oral, EVERY 4 HOURS PRN, Moderate Pain, Starting on 02/04/19 at 0910, Until Kellen 02/15/19 at 2009 0543 ($ Given - Provider: Zbigniew Sandoval RN)1650 ($ Given - Provider: Efrain Rojas, DONTAE)2152 ($ Given - Provider: Chris Carter, RN) [...] documented as of this encounter Care Teams Insurance Follow Up Rep Relationship Specialty Start Date End Date Briana Medeiros MD [address] [place] [address] PCP - General 02/15/18 02/22/22 documented as of this encounter
--- OUTSIDE RECORDS SUMMARY | 2024-05-24 23:40 | XMS_ITS | Encounter Summary ---
Author Organization [facility] Address [address] [place] [address] Care Team Providers Care Mold Shop Supervisor Name Role Phone Briana Medeiros MD Primary Care Provider Encounter Details Date Type Department Care Team ([facility] Contact Info) Description 10/10/2018 Orders Only [facility] GI [address] [place] [address] Aldo Vásquez MD [address] [place] [address] Social History Tobacco Use Types Packs/Day Years [...] or have serious hearing difficult y? No 09/19/2017 Is person blind or have serious difficulty seein g? No 09/19/2017 Does person have serious dif ficulty walking/climbing stairs? Yes 09/19/2017 Does person have difficulty dressing/bathing? Ye s 09/19/2017 Does person have difficulty doing errands alone? Yes 09/19/2017 Cognitive Status Response Date of Assessm ent Does person have difficulty concentrating/remembering/making decisions? 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 Office Visit [facility] - GI [address] [facility] [place] [id number] Twin Miller MD [facility] [facility] [address]L [place] [address] 09/19/2024 2:00 PM CDT Office Visit [facility] - Orthopedic Surgery [address] [facility] [place] [place] [address] Larry Alexander MD [address] [facility] [address] [place] [address] documented as of this encounter Procedures Procedure Name Priority Date/Time Associated Diagnosis Comments PT-INR 10/10/2018 3:15 PM CDT CBC W AUTO DIFFERENTIAL 10/10/2018 3:15 PM CDT documented in this encounter Results * PT-INR (10/10/2018 3:15 PM CDT) INR 1.1 [facility] Comment: Reference Range ? 0.9-1.1 Moderate-intensity Warfarin Therapy 2.0-3.0 Higher-intensity Warfarin Therapy ?? 3.0-4.0 PT 11.0 9.0 - 11.5 sec [facility] Comment: For more information on this test, go to: http://education.[employer]/faq/XIE338 Test Performed at: [facility] [id number] [place] [address] ??[phone] ROSS LOPEZ DO,MPH 10/10/2018 3:15 PM CDT 10/10/2018 3:15 PM CDT Aldo Vásquez MD LAB - COAGULATION ORDERABLES [facility] [address] [place] [address] * (ABNORMAL) CBC WITH DIFFERENTIAL (10/10/2018 3:15 PM CDT) White Blood Cell Count 7.1 3.8 - 10.8 Thousand/u L [facility] RBC 3.94(L) 4.20 - 5.80 Million/uL [facility] Hemoglobin 11.0(L) 13.2 - 17.1 g/dL [facility] Hematocrit 34.5(L) 38.5 - 50.0 % [facility] MCV 87.6 80.0 - 100.0 fL [facility] MCH 27.9 27.0 - 33.0 pg [facility] MCHC 31.9(L) 32.0 - 36.0 g/dL [facility] RDW 14.0 11.0 - 15.0 % [facility] Platelet Count 183 140 - 400 Thousand/u L [facility] MPV 12.4 7.5 - 12.5 fL [facility] Neutrophil Absolute 5268 1500 - 7800 cells/uL [facility] Lymphocytes Absolute 660(L) 850 - 3900 cells/uL [facility] Absolute Monocytes 831 200 - 950 cells/uL [facility] Eosinophils Absolute 298 15 - 500 cells/uL [facility] Basophils Absolute 43 0 - 200 cells/uL [facility] Granulocytes % 74.2 % [facility] Lymphocytes % 9.3 % [facility] Monocytes % 11.7 % [facility] Eosinophils % 4.2 % [facility] Basophils % 0.6 % [facility] Comment: Test Performed at: [facility] [address] ??[phone] ROSS LOPEZ DO,MPH 10/10/2018 3:15 PM CDT 10/10/2018 3:15 PM CDT Aldo Vásquez MD LAB - HEMATOLOGY ORDERABLES Performing Organization Address [facility] Co de Phone Number [facility] [address] [place] [address] documented in this encounter Visit Diagnoses Not on filedocumented in this encounter Additional Health Concerns Infection Onset Date Last Indicated Resolved Time 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
--- OUTSIDE RECORDS SUMMARY | 2024-05-24 23:40 | XMS_ITS | Encounter Summary ---
Author Organization [facility] Address [address] [place] [address] Care Team Providers Care Group Director Experience Name Role Phone Briana Medeiros MD Primary Care Provider [phone] Reason for Referral * Radiology Services (Routine) - Closed Specialty Diagnoses / Procedures Referred By Contac t Referred To Contact Ultrasound Diagnoses 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) Procedures US ABDOMEN LIMITED Aldo Vásquez MD [address] [place] [address] [address] Referral ID Status Reason Start Date Expiration Date Visits Re quested Visits Authorized [id number] Closed 08/17/2018 02/13/2019 1 1 Encounter Details Date Type Department Care Team (Late st Contact Info) Description 08/17/2018 2:10 PM CDT Office Visit [facility] GI [address] [place] [address] Aldo Vásquez MD [address] [place] [address] 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) (Primary Dx); Pleural effusion on left; Other cirrhosis of liver (HCC); Metabolic syndrome; Chronic atrial fibrillation (HCC) Social History Tobacco [...] Sign Reading Time Taken Comments Blood Pressure 128/84 08/17/2018 2:25 PM CDT Pulse 73 08/17/2018 2:25 PM CDT Temperature 36.7 ??C (98 ??F) 08/17/2018 2:25 PM CDT Respiratory Rate - - Oxygen Saturation - - Inhaled Oxygen Concentration - - Weight 96.2 kg (212 lb) 08/17/2018 2:25 PM CDT Height 180.3 cm (5' 11 ) 08/17/2018 2:25 PM CDT Body Mass Index 29.57 08/17/2018 2:25 PM CDT documented in this encounter [...] Yes 09/19/2017 documented as of this encounter Progress Notes * Opal Vásquez MD - 08/17/2018 2:45 PM CDT Hepatology clinic new patient visit: Subjective: 67 year old yo pt with RAYGOZA cirrhosis. Referring physician: Dr. Briana Medeiros MD Seen last in 02/2018 He is doing well, no hospital visits, no ED visits Weaning off O2 slowly Pt is getting stronger, walking in a walker few times a day, he gained 18 lbs since last visit, he is eating better, no hematemesis or hematocehzia, no change in abdominal girth, no mental status abnormalities. doesn't think he had significant confusion while in the hospital except when he wason pain medications. In summary: Pt was admitted to the hospital in June of this year, had multiple admissions afterwards for spine abscess, surgical repair, MRSA bacteremia and respiratory failure requiring trach and prolonged physical rehab in between. He was eventually at home since January 27 He was told in the hospital about cirrhosis seen on imaging. Never been told before abut any liver issues He had a PEG tube in [facility], EGD looked normal with no varices. Since then the PEG was removed in November He was never a regular drinker, no previous drug use The GI ROS Includes: No jaundice, pruritus or edema There were no other pertinent positive GI symptoms. Other ROS: A 12-point ROS was performed in detail with the patient and is negative other than above. Past Medical History: Past Medical History: Diagnosis [...] Psoriasis ??? Seizures ??? Squamous cell carcinoma Active Problem List: Patient Active Problem List Diagnosis Date Noted ??? Hypoxemia 09/06/2017 ??? Pleural effusion on left 08/29/2017 ??? Methicillin resistant Staphylococcus aureus infection 08/29/2017 ??? Extradural and subdural abscess, unspecified 08/29/2017 ??? Acute respiratory failure with hypoxia 08/29/2017 ??? Discitis of lumbar region 08/29/2017 ??? Acute kidney failure 08/29/2017 ??? Sepsis 08/27/2017 ??? Severe sepsis without septic shock (CODE) 08/27/2017 ??? Other ascites 07/25/2017 ??? Acute embolism and thrombosis of deep vein of lower extremity 07/25/2017 ??? Other cirrhosis of liver 07/25/2017 ??? Bacteremia 07/25/2017 ??? Vitamin D deficiency 07/08/2017 ??? Local infection of skin and subcutaneous tissue 04/18/2017 ??? Unspecified staphylococcus as the cause of diseases classified elsewhere 04/18/2017 ??? Chronic atrial fibrillation 04/06/2017 ??? Other specified anemias 04/06/2017 ??? Venous insufficiency (chronic) (peripheral) 02/25/2017 ??? Other specified dermatitis 02/25/2017 ??? Impetiginization of other dermatoses 02/25/2017 ??? Localized edema 02/25/2017 Past surgical history: Past Surgical History: Procedure Laterality Date ??? Cataract Removal Bilateral ??? ENDOSCOPY, UPPER N/A 09/15/2017 N/A; ESOPHAGOGASTRODUODENOSCOPY (EGD) DIAGNOSTIC ??? HX JOINT REPLACEMENT ??? HX JOINT REPLACEMENT right hip 2005, left hip 2008 ??? Tracheostomy N/A 09/13/2017 N/A; TRACHEOSTOMY Social history: Alcohol: no Drugs: no Smoking: quit 1981 Retired, Lives with Social History Social History ??? Marital status: Spouse name: N/A ??? Number of children: N/A ??? Years of education: N/A Occupational History ??? Not on file. Social History Main Topics ??? Smoking status: Former Smoker Quit date: 06/06/1981 ??? Smokeless tobacco: Never Used ??? Alcohol use No ??? Drug use: No ??? Sexual activity: Not on file Other Topics Concern ??? Not on file Social History Narrative Merged History Encounter [employer] war Allergies: Allergies Allergen Reactions ??? Penicillins Skin Reactions and Swelling Family history: Family History Problem Relation Age of Onset ??? Coronary Artery Disease Mother age 65 ??? Cirrhosis Father ??? Cancer - Breast Neg Hx ??? CVA Neg Hx ??? Hemophilia Neg Hx ??? Cancer - Other Neg Hx ??? Eczema Neg Hx ??? Psoriasis Neg Hx ??? Cancer - Skin, Non Melanoma Neg Hx ??? Cancer - Skin, Melanoma Neg Hx father had cirrhosis from alcohol No FHx of liver cancer Medications: Outpatient Encounter Prescriptions as of 08/17/2018 Medication Sig Dispense Refill ??? acetaminophen (TYLENOL) 325 MG tablet Take 650 mg by mouth every 4 hours as needed ??? albuterol (PROVENTIL;VENTOLIN) (5 MG/ML) 0.5% nebulizer solution 2.5 mg. 1 Box 11 ??? amiodarone (CORDARONE) 200 MG tablet 200 mg BID. 30 tablet 11 ??? Ascorbic Acid 500 MG Take 500 mg by mouth once daily ??? aspirin (ASPIRIN) 81 MG tablet Take 81 mg by mouth DAILY. ??? [DISCONTINUED] atorvastatin (LIPITOR) 20 MG tablet Take 20 mg by mouth DAILY. 6 ??? baclofen (LIORESAL) 10 MG tablet Take 10 mg by mouth 3 times daily 0 ??? bumetanide (BUMEX) 0.5 MG tablet Take 0.5 mg by mouth 2 times daily ??? [DISCONTINUED] bumetanide (BUMEX) 1 MG tablet Take 1 mg by mouth once daily 5 ??? diphenhydrAMINE (BENADRYL ALLERGY) 25 MG tablet Take 25 mg by mouth every 4 hours as needed forItching ??? docusate sodium (COLACE) 50 MG/5ML solution 10 mL by Enteral Tube route once daily ??? ELIQUIS 5 MG tablet Take 5 mg by mouth 2 times daily 3 ??? lidocaine (LIDODERM) 5 % patch Apply 2 patches to skin DAILY. 10 patch 11 ??? metoprolol tartrate (LOPRESSOR) 25 MG tablet Take 0.5 tablets by mouth 2 times daily 3 ??? nystatin (MYCOSTATIN) 304037 UNIT/GM powder APPLY TO AFFECTED AREA TWICE A DAY 3 ??? ondansetron, disintegrating, (ZOFRAN ODT) 4 MG tablet Take 4 mg by mouth every 6 hours as needed for Nausea/Vomiting Allow tablet to dissolve on the tongue ??? [DISCONTINUED] oxyCODONE, immediate release, (ROXICODONE) 5 MG tablet Take 5 mg by mouth every 4 hours as needed for Pain ??? Oxygen Use 1 L as directed ??? pantoprazole (PROTONIX) 40 MG packet 1 packet by Enteral Tube route once daily 30 Each 5 ??? polyethylene glycol 3350 (MIRALAX) packet 17 g by Enteral Tube route once daily as needed for Constipation ??? senna-docusate (SENOKOT-S) 8.6-50 MG tablet Take 1 tablet by mouth DAILY. ??? SYMBICORT 160-4.5 MCG/ACT inhaler INHALE 2 [...] once daily ??? vitamin D, ergocalciferol, (DRISDOL) 45660 UNITS capsule Take 50,000 Units by mouth every 7 days 0 ??? zinc sulfate (ZINCATE) 50 MG capsule Take 220 mg by mouth once daily No facility-administered encounter medications on file as of 08/17/2018. Objective: Physical exam: BP 128/84 Pulse 73 Temp 98 ??F (36.7 ??C) (Oral) Ht 1.803 m (5' 11 ) Wt 96.2 kg (212 lb) BMI 29.57 kg/m2 General appearance: alert, oriented, pleasant, in a wheel chair, off oxygen today Skin: Skin color, texture, turgor normal, no rashes, no spider angiomas Neck: Normal range of motion Eyes: Anicteric sclera Lungs: CTAB, no wheezing or rhonchi Heart: irregular Abdomen: Soft, non-tender, non distended. Bowel sounds normal. No masses, organomegaly Neuro: No asterixis, moving all extremities Psychiatric: Has a normal mood and affect. Speech is normal. Extremities: No LE edema, or skin discoloration. Good capillary refill. Labs: Recent Labs Component Name 09/19/17 0243 09/18/17 0003 09/17/17 0433 09/06/17 1157 09/04/17 0447 09/03/17 0431 08/27/17 0501 08/15/17 0348 POTASSIUM 4.9* 3.4* 3.6 - 3.8 4.9* 4.4 - 4.1 - 4.3 CO2 34* 35* 32* - 20* 27 27 - 25 - 29 BUN 26 25 19 - 21 11 13 - 32* - 31* CREATININE 0.6 0.6 0.6 - 0.7 0.6 0.6 - 0.9 - 0.8 CALCIUM 9.1 9.0 8.8 - 8.5 8.4 8.6 - 9.2 - 8.6 ALKPHOS - - - - 204* 190* 212* - 323* 323* - 231* ALT - - - - 10 12 12 - 23 23 - 17 AST - - - - 21 27 26 - 29 29 - 24 TBILI - - - - 0.3 0.3 0.3 - 0.7 0.7 - 0.5 DBILI - - - - - - - - 0.5 - 0.3 EGFR >60 >60 >60 - >60 >60 >60 - >60 - >60 - = values in this interval not displayed. Recent Labs Component Name 09/19/17 0243 09/18/17 0003 09/17/17 0433 WBC 8.5 8.7 8.1 HGB 8.1* 8.8* 8.7* HCT 28.0* 29.6* 29.2* PLTCOUNT 208 199 182 Recent Labs Component Name 09/15/17 0441 09/11/17 0437 09/09/17 0422 INR 1.2 1.1 1.3 Hepatitis panel: Component Latest Ref Rng & Units 07/14/2017 Hepatitis B Surface AB Quant Non-reactive Non-reactive Hepatitis B Surface Antibody Quantitative <8.0 mIU/mL 0.2 Hepatitis C Antibody Non-reactive Non-reactive HBcAb, Total Non-reactive Non-reactive Hepatitis B Virus Surface Antigen Non-reactive Non-reactive Component Latest Ref Rng & Units 07/24/2017 07/17/2017 07/15/2017 07/14/2017 Transferrin 174 - 382 mg/dL 126 (L) 154 (L) Transferrin Saturation % 16 - 50 % 9 (L) 5 (L) SPECKLED PATTERN ([facility]) 1:80 Note Comment [id number], Serum 90 - 200 mg/dL 223 (H) Phenotype (PI) Comment Ferritin 22 - 275 ng/mL 947 (H) 1459 (H) Iron 50 - 175 mcg/dL 14 (L) Ceruloplasmin 20 - 60 mg/dL 31 F-Actin Antibody IgG 0.0 - 19.9 Units 4.6 Antinuclear Antibodies,IFA Positive (A) Liver-Kidney Microsomal Ab 0.0 - 20.0 Units <1.0 TSH 0.350 - 4.940 uIU/mL 2.518 AMA: negative Radiology: Liver US 07/16/2017: 1. Examination limited by patient body habitus and positioning. Hepatic cirrhosis with sequela of portal hypertension , specifically splenomegaly, without discrete hepatic lesion. ?? 2. No evidence of cholelithiasis or cholecystitis. Small nonshadowing nondependent isoechoic noduleat the neck of the gallbladder measuring 9 mm is most consistent with polyp or adherent sludge. Follow-up ultrasound in one year is recommended.\ Liver US 05/17/2018 1. Hepatic cirrhosis without discrete hepatic lesion. 2. Patent hepatic vasculature. 3. No evidence of cholelithiasis or cholecystitis. ?? Assessment: #1: Compensated cirrhosis, likely secondary to RAYGOZA. Intact synthetic function. Remained compensated despite multiple medical complications over the last 6 months #2: Metabolic syndrome #3: Multiple medical issues listed above #4: Atrial fibrillation on AC Plan: Counseled pt about cirrhosis and its complication, his workup for other causes of liver disease wasnegative EGD done 2017 with no varices Get a new liver ultrasound every 6 months Recommended low NA, high protein diet RTC in 6 months Orders Placed This Encounter Procedures ??? US ABDOMEN LIMITED ??? COMPREHENSIVE METABOLIC PANEL ??? PT-INR ??? 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 Office Visit [facility] - GI [address] [place] [address], [place] [id number] Twin Miller MD [address] [place] [address] [place] [address] 09/19/2024 2:00 PM CDT Office Visit [facility] - Orthopedic Surgery [facility] [place] [address] Vandana Alexander MD [address] [place] [address] Scheduled Orders Name Type Priority Associated Diagnoses Orde r Schedule PT-INR Lab STAT 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) Ordered: 08/17/2018 CBC WITH DIFFERENTIAL Lab Routine 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) Expected: 08/18/2018 (Approximate), Expires: 02/13/2019 documented as of this encounter Results * US ABDOMEN LIMITED (11/06/2018 11:36 AM CDT) Anatomical Region Laterality Modality Abdomen Ultrasound 11/06/2018 11:3 4 AM CDT Impressions 11/06/2018 1:51 PM CDT IMPRESSION: Hepatic cirrhosis without discrete hepatic lesion or intrahepatic biliary dilation. Patent hepatic vasculature. Dictated by Branden Cannon MD (resident). I, Dr. VANDANA HENSLEY M.D. have personally reviewed and interpreted this examination/study. This report was electronically signed by VANDANA HENSLEY M.D. ??on 11/06/2018 1:51 PM . Narrative 11/06/2018 1:51 PM CDT EXAMINATION: Limited abdominal sonogram HISTORY: 67-year-old man with RAYGOZA cirrhosis; hepatocellular carcinoma screening. COMPARISON: Comparison is made with abdominal ultrasound dated 05/17/2018. FINDINGS: The exam is limited due to poor acoustic windows. The pancreas is not visualized. The visible liver has a coarse echotexture and nodular surface, consistent with cirrhosis. There is no visible discrete hepatic mass or intrahepatic biliary dilatation. Color Doppler evaluation demonstrates patency of the hepatic and portal veins. No gallstones or pericholecystic fluid is seen. The gallbladder wall is normal in thickness, measuring 4 mm. Sonographic Maria's sign is negative. The common bile duct is nondilated, measuring 3 mm. The right kidney measures 10.2 cm in length. Limited views of the right kidney reveal no evidence of nephrolithiasis or hydronephrosis. The spleen measures 13.0 cm in length. No ascites is present. Procedure Note Vandana Hensley MD - 11/06/2018 EXAMINATION: Limited abdominal sonogram HISTORY: 67-year-old man with RAYGOZA cirrhosis; hepatocellular carcinoma screening. COMPARISON: Comparison is made with abdominal ultrasound dated107/18/2017. FINDINGS: The exam is limited due to poor acoustic windows. The pancreas is not visualized. The visible liver has a coarse echotexture and nodular surface,consistent with cirrhosis. There is no visible discrete hepatic mass orintrahepatic biliary dilatation. Color Doppler evaluation demonstrates patency of the hepatic and portal veins. No gallstones or pericholecystic fluid is seen. The gallbladder wall is normal in thickness, measuring 4 mm. Sonographic Maria's sign is negative. The common bile duct is nondilated, measuring 3 mm. The right kidney measures 10.2 cm in length. Limited views of the right kidney reveal no evidence of nephrolithiasis or hydronephrosis. Thespleen measures 13.0 cm in length. No ascites is present. IMPRESSION: Hepatic cirrhosis without discrete hepatic lesion or intrahepaticbiliary dilation. Patent hepatic vasculature. Dictated by Branden Cannon MD (resident). I, Dr. VANDANA HENSLEY M.D. have personally reviewed and interpreted this examination/study. This report was electronically signed by VANDANA HENSLEY M.D. on11/06/2018 1:51 PM . Aldo Vásquez MD US ORD ERABLES documented in this encounter Visit Diagnoses Diagnosis 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)- Primary Other chronic nonalcoholic liver disease Pleural effusion on left Unspecified pleural effusion Other cirrhosis of liver (HCC) Metabolic syndrome Dysmetabolic Syndrome X Chronic atrial fibrillation (HCC) Atrial fibrillation 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) Other chronic nonalcoholic liver disease documented in this encounter Additional Health Concerns Infection Onset Date Last Indicated Resolved Time MRSA 09/12/2017 04/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 Care Teams Group Director Experience Relationship Specialty Start Date End Date Briana Medeiros MD [address] [place] [id number] PCP - General 02/15/18 02/22/22 documented as of this encounter
--- OUTSIDE RECORDS SUMMARY | 2024-05-24 23:40 | XMS_ITS | Encounter Summary ---
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 Office Visit [facility] - GI [address] [facility], [place] [address] Twin Miller MD [address] [facility] [address]L [place] [address] 09/19/2024 2:00 PM CDT Office Visit [facility] - Orthopedic Surgery [address] [facility] [place] [address] Larry Alexander MD [address] [facility] [address] [place] [address] documented as of this encounter Procedures Procedure Name Priority Date/Time Associated Diagnosis Comments MITOCHONDRIAL ANTIBODY SCREEN Routine 06/02/2018 3:03 PM EXERCISE INSTRUCTOR Other cirrhosis of liver (HCC) documented in this encounter Results * MITOCHONDRIAL ANTIBODY SCREEN (06/02/2018 3:03 PM EXERCISE INSTRUCTOR) Mitochondrial M2 Antibody <20.0 U [facility] Comment: ?Reference Range: ?NEGATIVE: ??< OR = 20.0 ?EQUIVOCAL: 20.1-24.9 ?POSITIVE: ??> OR = 25.0 Test Performed at: [employer] [address] [place], [place] ??[address] ROSANNA BRYSON MD,PHD,ARIAS Blood BLOOD SPECIMEN / Unknown 06/02/2018 3:03 PM EXERCISE INSTRUCTOR 06/02/2018 3:03 PM EXERCISE INSTRUCTOR Aldo Vásquez MD LAB - CHEMISTRY ORDERABLES [facility] [address] [place] [address] documented in this encounter Visit Diagnoses Diagnosis Other cirrhosis of liver (HCC)- Primary documented in this encounter Additional Health Concerns Infection Onset Date Last Indicated Resolved Time MRSA 09/12/2017 04/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 Care Teams Corrosion Prevention Metal Sprayer Relationship Specialty Start Date End Date Briana Medeiros MD [address] [place] [address] PCP - General 02/15/18 02/22/22 documented as of this encounter
--- OUTSIDE RECORDS SUMMARY | 2024-05-24 23:40 | XMS_ITS | Encounter Summary ---
Author Organization [facility] Address [address] [facility] [place] [address] Care Team Providers Care Meat Department Manager Name Role Phone Briana Medeiros MD Primary Care Provider [phone] Reason for Referral * Radiology Services (Routine) - Closed Specialty Diagnoses / Procedures Referred By Contac t Referred To Contact Ultrasound Diagnoses Other cirrhosis of liver (HCC) Procedures US ABDOMEN LIMITED Aldo Vásquez MD [address] [place] [address] [address] Referral ID Status Reason Start Date Expiration Date Visits Re quested Visits Authorized [id number] Closed 02/15/2018 08/14/2018 1 1 Reason for Visit * Reason Comments Cirrhosis Encounter Details Date Type Department Care Team (Late st Contact Info) Description 02/15/2018 1:20 PM CDT Office Visit [facility] GI [address] [place] [address] Aldo Vásquez MD [address] [place] [address] Other cirrhosis of liver (HCC) (Primary Dx); Other ascites; Vitamin D deficiency; Acute respiratory failure with hypoxia (HCC) Social History Tobacco Use Types Packs/Day [...] Sign Reading Time Taken Comments Blood Pressure 103/59 02/15/2018 1:13 PM CDT Pulse 72 02/15/2018 1:13 PM CDT Temperature - - Respiratory Rate - - Oxygen Saturation 100% 02/15/2018 1:13 PM CDT Inhaled Oxygen Concentration - - Weight 88.5 kg (195 lb) 02/15/2018 1:13 PM CDT Height 180.3 cm (5' 11 ) 02/15/2018 1:13 PM CDT Body Mass Index 27.2 02/15/2018 1:13 PM CDT documented in this encounter Functional [...] Yes 09/19/2017 documented as of this encounter Patient Instructions * Patient Instructions* Opal Vásquez MD - 02/15/2018 2:02 PM CDT Talk to your heart doctor if there is an alternative to amiodarone Get a liver ultrasound over the next 3 months documented in this encounter Progress Notes * Opal Vásquez MD - 02/15/2018 1:44 PM CDT Hepatology clinic new patient visit: Subjective: 67 y.o. yo pt with RAYGOZA cirrhosis. Referring physician: Dr. Briana Medeiros MD Pt was admitted to the hospital in [...] issues He had a PEG tube in [facility], EGD looked normal with no varices. Since then the PEG was removed in November Pt is getting stronger, walking in a walker, he is following with few consultants and is a little fatigued due to that, denies any weight change, no hematemesis or hematocehzia, no change in abdominal girth, no mental status abnormalities. doesn't think he had significant confusion while in the hospital except when he was on pain medications. He was never a regular drinker, no [...] Past Surgical History: Procedure Laterality Date ??? ENDOSCOPY, UPPER N/A 09/15/2017 N/A; ESOPHAGOGASTRODUODENOSCOPY [...] cancer Medications: Outpatient Encounter Prescriptions as of 02/15/2018 Medication Sig Dispense Refill ??? Oxygen Use 1 L as directed ??? ELIQUIS 5 MG tablet Take 5 mg by mouth 2 times daily 3 ??? baclofen (LIORESAL) 10 MG tablet Take 10 mg by mouth 3 times daily 0 ??? acetaminophen (TYLENOL) 325 MG tablet Take 650 mg by mouth every 4 hours as needed ??? SYMBICORT 160-4.5 MCG/ACT inhaler INHALE 2 PUFFS BY MOUTH TWICE A DAY 6 ??? bumetanide (BUMEX) 1 MG tablet Take 1 mg by mouth once daily 5 ??? vitamin D, ergocalciferol, (DRISDOL) 80350 UNITS capsule Take 50,000 Units by mouth every 7 days 0 ??? vitamin B-12 (CYANOCOBALAMIN) 500 MCG tablet Take 500 mcg by mouth once daily ??? metoprolol tartrate (LOPRESSOR) 25 MG tablet Take 0.5 tablets by mouth 2 times daily 3 ??? nystatin (MYCOSTATIN) 963825 UNIT/GM powder APPLY TO AFFECTED AREA TWICE A DAY 3 ??? tamsulosin (FLOMAX) 0.4 MG capsule Take 0.4 mg by mouth at bedtime 1 ??? triamcinolone acetonide (KENALOG) 0.1 % cream APPLY A THIN LAYER TOPICALLY FOUR TIMES DAILY TO THE AFFECTED AREA 3 ??? Ascorbic Acid 500 MG Take 500 mg by mouth once daily ??? diphenhydrAMINE (BENADRYL ALLERGY) 25 MG tablet Take 25 mg by mouth every 4 hours as needed forItching ??? ondansetron, disintegrating, (ZOFRAN ODT) 4 MG tablet Take 4 mg by mouth every 6 hours as needed for Nausea/Vomiting Allow tablet to dissolve on the tongue ??? docusate sodium (COLACE) 50 MG/5ML solution 10 mL by Enteral Tube route once daily ??? polyethylene glycol 3350 (MIRALAX) packet 17 g by Enteral Tube route once daily as needed for Constipation ??? pantoprazole (PROTONIX) 40 MG packet 1 packet by Enteral Tube route once daily 30 Each 5 ??? oxyCODONE, immediate release, (ROXICODONE) 5 MG tablet Take 5 mg by mouth every 4 hours as needed for Pain ??? albuterol (PROVENTIL;VENTOLIN) (5 MG/ML) 0.5% nebulizer solution 2.5 mg. 1 Box 11 ??? amiodarone (CORDARONE) 200 MG tablet 200 mg BID. 30 tablet 11 ??? lidocaine (LIDODERM) 5 % patch Apply 2 patches to skin DAILY. 10 patch 11 ??? senna-docusate (SENOKOT-S) 8.6-50 MG tablet Take 1 tablet by mouth DAILY. ??? atorvastatin (LIPITOR) 20 MG tablet Take 20 mg by mouth DAILY. 6 ??? aspirin (ASPIRIN) 81 MG tablet Take 81 mg by mouth DAILY. ??? [DISCONTINUED] aspirin (ASPIRIN) 81 MG chew tablet 1 tablet by Enteral Tube route once daily ??? [DISCONTINUED] amiodarone (CORDARONE) 200 MG tablet 1 tablet by Enteral Tube route 2 times daily 30 tablet 11 ??? [DISCONTINUED] rivaroxaban (XARELTO) 20 MG tablet 1 tablet by Enteral Tube route daily with breakfast 3 ??? [DISCONTINUED] metFORMIN (GLUCOPHAGE) 500 MG tablet 1 tablet by Enteral Tube route 2 times daily with morning and evening meal 3 ??? [DISCONTINUED] atorvastatin (LIPITOR) 20 MG tablet 1 tablet by Enteral Tube route once daily ??? [DISCONTINUED] lidocaine (LIDODERM) 5 % patch Apply 1 patch to skin once daily ??? [DISCONTINUED] chlorhexidine (PERIDEX) 0.12 % solution by Mouth/Throat route 2 times daily ??? [DISCONTINUED] lidocaine (LIDODERM) 5 % patch Apply 2 patches to skin once daily ??? [DISCONTINUED] clobetasol (TEMOVATE) 0.05 % cream 60 g 11 ??? [DISCONTINUED] oxyCODONE, immediate release, (ROXICODONE) 5 MG tablet 5 mg q4h PRN. 30 tablet 0 ??? [DISCONTINUED] clobetasol (TEMOVATE) 0.05 % ointment Apply to affected area BID PRN. ??? [DISCONTINUED] clobetasol (TEMOVATE) 0.05 % cream 0 ??? [DISCONTINUED] clobetasol (TEMOVATE) 0.05 % ointment 60 g 5 ??? [DISCONTINUED] atorvastatin (LIPITOR) 20 MG tablet 6 ??? [DISCONTINUED] metFORMIN (GLUCOPHAGE) 500 MG tablet 3 ??? [DISCONTINUED] rivaroxaban (XARELTO) 20 MG tablet 6 No facility-administered encounter medications on file as of 02/15/2018. Objective: Physical exam: BP 103/59 Pulse 72 Ht 1.803 m (5' 11 ) Wt 88.5 kg (195 lb) SpO2 100% BMI 27.2 kg/m2 General appearance: alert, oriented, pleasant, in a wheel chair, on oxygen Skin: Skin color, texture, turgor normal, no rashes, no spider angiomas Neck: Normal range of motion Eyes: Anicteric sclera Lungs: CTAB, no wheezing or rhonchi Heart: RRR Abdomen: Soft, non-tender, non distended. Bowel sounds [...] 8.1* 8.8* 8.7* HCT 28.0* 29.6* 29.2* Recent Labs Component Name 09/15/17 0441 09/11/17 [...] (L) SPECKLED PATTERN (SLH) 1:80 Note Comment [id number], Serum 90 - 200 mg/dL 223 (H) Phenotype (PI) Comment Ferritin 22 - 275 ng/mL 947 (H) 1459 (H) Iron 50 - 175 mcg/dL 14 (L) Ceruloplasmin 20 - 60 mg/dL 31 F-Actin Antibody IgG 0.0 - 19.9 Units 4.6 Antinuclear Antibodies,IFA Positive (A) Liver-Kidney Microsomal Ab 0.0 - 20.0 Units <1.0 TSH 0.350 - 4.940 uIU/mL 2.518 Radiology: Liver US 07/16/2017: 1. Examination limited by patient body habitus and positioning. Hepatic cirrhosis with sequela of portal hypertension , specifically splenomegaly, without discrete hepatic lesion. ?? 2. No evidence of cholelithiasis or cholecystitis. Small nonshadowing nondependent isoechoic noduleat the neck of the gallbladder measuring 9 mm is most consistent with polyp or adherent sludge. Follow-up ultrasound in one year is recommended. ?? Assessment: #1: Compensated cirrhosis, likely secondary to RAYGOZA. Intact synthetic function. Remained compensated despite multiple medical complications over the last 6 months #2: Metabolic syndrome #3: Multiple medical issues listed above Plan: Counseled pt about cirrhosis and its complication, his workup for other causes of liver disease wasnegative Get AMA to complete the workup EGD done this year with no varices Get a new liver ultrasound over the next 3 months Recommended low NA, high protein diet RTC in 6 months Orders Placed This Encounter Procedures ??? US ABDOMEN LIMITED ??? MITOCHONDRIAL ANTIBODY SCREEN Casper Vásquez MD Attending physician Division of Hepatology February 15, 2018 documented in this encounter Plan of Treatment Upcoming Encounters Date Type Department Care Team (Late st Contact Info) Description 07/09/2024 12:30 PM MEDIA PRODUCTION SUPPORT MANAGER Office Visit [facility] [place] [address] [place] [address], [place] [address] Twin Miller MD [address] [place] [address] [place] [address] 09/19/2024 2:00 PM CDT Office Visit [facility] - Orthopedic Surgery [address] [place] [address] [place] [address] [place] [address] [address] [place] [address] documented as of this encounter Procedures Procedure Name Priority Date/Time Associated Diagnosis Comments CARDIAC EKG ORDER 03/23/2018 4:0 0 PM CDT documented in this encounter Results * US ABDOMEN LIMITED (05/17/2018 9:58 AM MEDIA PRODUCTION SUPPORT MANAGER) Anatomical Region Laterality Modality Abdomen Ultrasound 05/17/2018 9:52 AM MEDIA PRODUCTION SUPPORT MANAGER Impressions 05/17/2018 11:07 AM MEDIA PRODUCTION SUPPORT MANAGER IMPRESSION: 1. Hepatic cirrhosis without discrete hepatic lesion. 2. Patent hepatic vasculature. 3. No evidence of cholelithiasis or cholecystitis. Dictated by Natacha Garrett M.D. (Resident) I, Dr. VANDANA HENSLEY M.D. have personally reviewed and interpreted this examination/study. This report was electronically signed by VANDANA HENSLEY M.D. ??on 05/17/2018 11:07 AM . Narrative 05/17/2018 11:07 AM MEDIA PRODUCTION SUPPORT MANAGER Exam: Abdominal ultrasound limited History: 67-year-old man with cirrhosis, hepatocellular carcinoma screening. Comparison: Comparison is made with the CT chest abdomen pelvis dated on 08/26/2017 and ultrasound dated on 07/16/2017 Findings: The liver has a coarse echotexture and nodular surface, consistent with cirrhosis. No discrete hepatic mass or intrahepatic biliary dilatation is seen.Limited color Doppler evaluation demonstrates patency of the hepatic and portal veins. No gallstones or pericholecystic fluid is seen. The gallbladder wall is normal in thickness, measuring 2.5 mm. Sonographic Maria's sign is negative. The common bile duct is nondilated, measuring 6 mm. The right kidney measures 10.9 x 4.8 x 4.7 cm in length. Limited views of the right kidney reveal no evidence of nephrolithiasis or hydronephrosis. The spleen measures 13 cm in length. The visible pancreas is normal in echogenicity. No ascites is present. Procedure Note Vandana Hensley MD - 05/17/2018 Exam: Abdominal ultrasound limited History: 67-year-old man with cirrhosis, hepatocellular carcinoma screening. Comparison: Comparison is made with the CT chest abdomen pelvis dated on 08/26/2017 and ultrasound dated on 07/16/2017 Findings: The liver has a coarse echotexture and nodular surface, consistent with cirrhosis. No discrete hepatic mass or intrahepatic biliary dilatationis seen.Limited color Doppler evaluation demonstrates patency of thehepatic and portal veins. No gallstones or pericholecystic fluid is seen. The gallbladder wall is normal in thickness, measuring 2.5 mm. Sonographic Maria's sign is negative. The common bile duct is nondilated, measuring 6 mm. The right kidney measures 10.9 x 4.8 x 4.7 cm in length. Limited viewsof the right kidney reveal no evidence of nephrolithiasis orhydronephrosis. The spleen measures 13 cm in length. The visible pancreas is normal in echogenicity. No ascites is present. IMPRESSION: 1. Hepatic cirrhosis without discrete hepatic lesion. 2. Patent hepatic vasculature. 3. No evidence of cholelithiasis or cholecystitis. Dictated by Natacha Garrett M.D. (Resident) I, Dr. VANDANA HENSLEY M.D. have personally reviewed and interpreted this examination/study. This report was electronically signed by VANDANA HENSLEY M.D. on 05/17/2018 11:07 AM . Aldo Vásquez MD US ORD ERABLES * CARDIAC EKG ORDER (03/23/2018 4:00 PM CDT) Narrative 03/23/2018 4:00 PM CDT Ordered by an unspecified provider. 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
--- OUTSIDE RECORDS SUMMARY | 2024-05-24 23:40 | XMS_ITS | Encounter Summary ---
Author Organization [facility] Address [address] [facility] [place] [address] Care Team Providers Care Glue Jointer Feeder Name Role Phone Briana Medeiros MD Primary Care Provider Reason for Referral * Radiology Services (Routine) - Closed Specialty Diagnoses / Procedures Referred By Contac t Referred To Contact Ultrasound Diagnoses Other cirrhosis of liver (HCC) Procedures US ABDOMEN LIMITED Aldo Vásquez MD [address] [place] [address] [facility] Us [address] [place] [address] Referral ID Status Reason Start Date Expiration Date Visits Re quested Visits Authorized [id number] Closed 02/15/2018 08/14/2018 1 1 CUTTING MACHINE OPERATOR Reason for Visit * Radiology Services (Routine) - Closed Specialty Diagnoses / Procedures Referred By Contac t Referred To Contact Ultrasound Diagnoses Other cirrhosis of liver (HCC) Procedures US ABDOMEN LIMITED Aldo Vásquez MD [address] [place] [address] [facility] [address] [place] [address] Referral ID Status Reason Start Date Expiration Date Visits Re quested Visits Authorized [id number] Closed 02/15/2018 08/14/2018 1 1 Encounter Details Date Type Department Care Team (Latest Contact Info) Description 05/17/2018 9:19 AM FUR CUTTING MACHINE OPERATOR - 05/17/2018 11:59 PM [facility] [[email or web address] Hospital Encounter [facility] [address] [place] [address] Aldo Vásquez MD [address] [place] [address] Discharge Disposition: Home or Self Care Social [...] Yes 09/19/2017 documented as of this encounter Medications at Time of Discharge Medication Sig Dispensed Refills Start Date End Date acetaminophen (TYLENOL) 325 MG tabletIndications:Oth er cirrhosis of liver (HCC) Take 2 (two) tablets by mouth every 4 hours as needed tamsulosin (FLOMAX) 0.4 MG capsuleIndications:Ot her cirrhosis of liver (HCC) Take 1 (one) capsule by mouth at bedtime 1 02/08/2018 albuterol (PROVENTIL;VENTOLIN) (5 MG/ML) 0.5% nebulizer solution 2.5 mg. 1 Box 11 09/04/2017 10/12/2023 amiodarone (CORDARONE) 200 MG tablet 200 mg BID. 30 tablet 11 09/04/2017 02/02/2019 Ascorbic Acid 500 MGIndications:Other cirrhosis of liver (HCC) Take 500 mg by mouth 2 times daily 04/24/2019 aspirin (ASPIRIN) 81 MG tablet Take 81 mg by mouth DAILY. 02/14/2017 02/15/2019 atorvastatin (LIPITOR) 20 MG tablet Take 20 mg by mouth DAILY. 6 06/19/2017 08/17/2018 baclofen (LIORESAL) 10 MG tabletIndications:Oth er cirrhosis of liver (HCC) Take 10 mg by mouth once daily 0 02/01/2018 10/21/2020 bumetanide (BUMEX) 1 MG tabletIndications:Oth er cirrhosis of liver (HCC) Take 1 mg by mouth once daily 5 02/01/2018 08/17/2018 diphenhydrAMINE (BENADRYL ALLERGY) 25 MG tabletIndications:Oth er cirrhosis of liver (HCC) Take 25 mg by mouth every 4 hours as needed for Itching 02/02/2019 docusate sodium (COLACE) 50 MG/5ML solution 10 mL by Enteral Tube route once daily 09/20/2017 02/02/2019 ELIQUIS 5 MG tabletIndications:Oth er cirrhosis of liver (HCC) Take 5 mg by mouth 2 times daily 3 02/01/2018 02/15/2019 lidocaine (LIDODERM) 5 % patch Apply 2 patches to skin DAILY. 10 patch 11 09/05/2017 02/15/2019 METOPROLOL TARTRATE POIndications:Other cirrhosis of liver (HCC) Take 50 tablets by mouth once daily 3 02/01/2018 02/02/2019 nystatin (MYCOSTATIN) 340458 UNIT/GM powderIndications:Oth er cirrhosis of liver (HCC) APPLY TO AFFECTED AREA TWICE A DAY 3 02/01/2018 02/15/2019 ondansetron, disintegrating, (ZOFRAN ODT) 4 MG tabletIndications:Oth er cirrhosis of liver (HCC) Take 4 mg by mouth every 6 hours as needed for Nausea/Vomiting Allow tablet to dissolve on the tongue 02/02/2019 oxyCODONE, immediate release, (ROXICODONE) 5 MG tablet Take 5 mg by mouth every 4 hours as needed for Pain 08/17/2018 OxygenIndications:Oth er cirrhosis of liver (HCC) Use 1 L as directed 1 LITER AT BEDTIME AND PRN 02/15/2019 pantoprazole (PROTONIX) 40 MG packet 1 packet by Enteral Tube route once daily 30 Each 5 09/19/2017 02/02/2019 polyethylene glycol 3350 (MIRALAX) packet 17 g by Enteral Tube route once daily as needed for Constipation 09/19/2017 02/02/2019 senna-docusate (SENOKOT-S) 8.6-50 MG tablet Take 1 tablet by mouth DAILY. 07/28/2017 02/02/2019 SYMBICORT 160-4.5 MCG/ACT inhalerIndications:Ot her cirrhosis of liver (HCC) INHALE 2 PUFFS BY MOUTH TWICE A DAY 6 02/01/2018 08/17/2021 triamcinolone acetonide (KENALOG) 0.1 % creamIndications:Othe r cirrhosis of liver (HCC) APPLY A THIN LAYER TOPICALLY FOUR TIMES DAILY TO THE AFFECTED AREA 3 02/01/2018 02/15/2019 vitamin B-12 (CYANOCOBALAMIN) 500 MCG tabletIndications:Oth er cirrhosis of liver (HCC) Take 500 mcg by mouth once daily 02/15/2019 vitamin D, ergocalciferol, (DRISDOL) 91215 UNITS capsuleIndications:Ot her cirrhosis of liver (HCC) Take 50,000 Units by mouth every 7 days 0 02/02/2018 03/21/2023 documented as of this encounter Plan of Treatment Upcoming Encounters Date Type Department Care Team (Late st Contact Info) Description 07/09/2024 12:30 PM FUR CUTTING MACHINE OPERATOR [facility] GI [address] [place] [address], [place] [phone] Twin Miller MD [address] [place] [address] DIV [place] [address] 09/19/2024 2:00 PM CDT Office Visit [facility] - Orthopedic Surgery [facility] [place] [phone] Vandana Alexander MD [address] [facility] [address] [place] [address] documented as of this encounter Procedures Procedure Name Priority Date/Time Associated Diagnosis Comments US ABDOMEN LIMITED Routine 05/17/2018 9: 58 AM FUR CUTTING MACHINE OPERATOR Other cirrhosis of liver (HCC) documented in this encounter Results * US ABDOMEN LIMITED (05/17/2018 9:58 AM FUR CUTTING MACHINE OPERATOR) Anatomical Region Laterality Modality Abdomen Ultrasound 05/17/2018 9:52 AM FUR CUTTING MACHINE OPERATOR Impressions 05/17/2018 11:07 AM FUR CUTTING MACHINE OPERATOR IMPRESSION: 1. Hepatic cirrhosis without discrete hepatic lesion. 2. Patent hepatic vasculature. 3. No evidence of cholelithiasis or cholecystitis. Dictated by Natacha Garrett M.D. (Resident) I, Dr. VANDANA HENSLEY M.D. have personally reviewed and interpreted this examination/study. This report was electronically signed by VANDANA HENSLEY M.D. ??on 05/17/2018 11:07 AM . Narrative 05/17/2018 11:07 AM FUR CUTTING MACHINE OPERATOR Exam: Abdominal ultrasound limited History: 67-year-old man [...] 05/17/2018 11:07 AM . Aldo Vásquez MD ORD ERABLES documented in this encounter Visit Diagnoses Diagnosis Other cirrhosis of liver (HCC) documented in this encounter Additional Health Concerns Infection Onset Date Last Indicated Resolved Time MRSA 09/12/2017 04/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 Care Teams Glue Jointer Feeder Relationship Specialty Start Date End Date Briana Medeiros MD [address] [place] [address] PCP - General 02/15/18 02/22/22 documented as of this encounter
--- OUTSIDE RECORDS SUMMARY | 2024-05-24 23:40 | XMS_ITS | Encounter Summary ---
Author Organization [facility] Address [address] [place] [address] Care Team Providers Care Diversified Crops Farmworker Name Role Phone Briana Medeiros MD Primary Care Provider [phone] Reason for Referral * Radiology Services (Routine) - Closed Specialty Diagnoses / Procedures Referred By Contac t Referred To Contact Ultrasound Diagnoses 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) Procedures US ABDOMEN LIMITED Aldo Vásquez MD [address] [place] [address] [facility] [address] [place] [address] Referral ID Status Reason Start Date Expiration Date Visits Re quested Visits Authorized [id number] Closed 08/17/2018 02/13/2019 1 1 Reason for Visit * Radiology Services (Routine) - Closed Specialty Diagnoses / Procedures Referred By Contac t Referred To Contact Ultrasound Diagnoses 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) Procedures US ABDOMEN LIMITED Aldo Vásquez MD [address] [place] [address] [facility] [address] [place] [address] Referral ID Status Reason Start Date Expiration Date Visits Re quested Visits Authorized [id number] Closed 08/17/2018 02/13/2019 1 1 Encounter Details Date Type Department Care Team (Latest Contact Info) Description 11/06/2018 9:56 AM CDT - 11/06/2018 11:59 PM CDT Hospital Encounter [facility] [address] [place] [address] Aldo Vásquez MD [address] [place] [address] Discharge Disposition: Home or Self Care Social [...] 81 mg by mouth DAILY. 02/14/2017 02/15/2019 baclofen (LIORESAL) 10 MG tabletIndications:Oth er cirrhosis of liver (HCC) Take 10 mg by mouth once daily 0 02/01/2018 10/21/2020 bumetanide (BUMEX) 0.5 MG tablet Take 0.5 mg by mouth 2 times daily 08/09/2018 02/15/2019 diphenhydrAMINE (BENADRYL ALLERGY) 25 MG tabletIndications:Oth er [...] once daily 3 02/01/2018 02/02/2019 nystatin (MYCOSTATIN) 093165 UNIT/GM powderIndications:Oth er cirrhosis of liver (HCC) APPLY TO AFFECTED AREA TWICE A DAY 3 02/01/2018 02/15/2019 ondansetron, disintegrating, (ZOFRAN ODT) 4 MG tabletIndications:Oth er cirrhosis of liver (HCC) Take 4 mg by mouth every 6 hours as needed for Nausea/Vomiting Allow tablet to dissolve on the tongue 02/02/2019 OxygenIndications:Oth er cirrhosis of liver (HCC) Use 1 L as directed 1 LITER AT BEDTIME AND PRN 02/15/2019 pantoprazole (PROTONIX) 40 MG packet 1 packet by Enteral Tube route once daily 30 Each 5 09/19/2017 02/02/2019 polyethylene glycol 3350 (MIRALAX) packet 17 g by Enteral Tube route once daily as needed for Constipation 09/19/2017 02/02/2019 PREVIDENT 5000 BOOSTER PLUS 1.1 % as directed 4 10/29/2018 0 PROAIR HFA 108 (90 Base) MCG/ACT inhaler Inhale 2 puffs by mouth every 4 hours as needed 11/06/2018 12/30/2020 senna-docusate (SENOKOT-S) 8.6-50 MG tablet Take 1 [...] once daily 02/15/2019 vitamin D, ergocalciferol, (DRISDOL) 11682 UNITS capsuleIndications:Ot her cirrhosis of liver (HCC) Take 50,000 Units by mouth every 7 days 0 02/02/2018 03/21/2023 zinc sulfate (ZINCATE) 50 MG capsule Take 220 mg by mouth once daily 02/15/2019 documented as of this encounter Plan of Treatment Upcoming Encounters Date Type Department Care Team (Late st Contact Info) Description 07/09/2024 12:30 PM PURCHASING CONTRACTING CLERK Office Visit [facility] - GI [address] [place] [address], [place] [id number] Twin Miller MD [address] [place] [address] [place] [address] 09/19/2024 2:00 PM CDT Office Visit [facility] - Orthopedic [facility] [place] [id number] Vandana Alexander MD [facility] [address] [place] [address] documented as of this encounter Procedures Procedure Name Priority Date/Time Associated Diagnosis Comments US ABDOMEN LIMITED Routine 11/06/2018 11 :36 AM CDT Liver cirrhosis secondary [...] on11/06/2018 1:51 PM . Aldo Vásquez MD ORD ERABLES documented in this encounter Visit Diagnoses Diagnosis 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) Other chronic nonalcoholic liver disease documented in this encounter Additional Health Concerns Infection Onset Date Last Indicated Resolved Time MRSA 09/12/2017 04/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 Care Teams Diversified Crops Farmworker Relationship Specialty Start Date End Date Briana Medeiros MD [address] [place] [id number] PCP - General 02/15/18 02/22/22 documented as of this encounter
--- OUTSIDE RECORDS SUMMARY | 2024-05-24 23:40 | XMS_ITS | Encounter Summary ---
Author Organization [facility] Address [address] [facility] [place] [address] Care Team Providers Care Kettle Operator Name Role Phone Briana Medeiros MD Primary Care Provider [phone] Reason for Visit * Reason Comments Follow-up Encounter Details Date Type Department Care Team (Late st Contact Info) Description 05/16/2018 Telephone [facility] [address] [place] [address] Cleo Tompkins RN Follow-up Social History Tobacco Use Types Packs/Day [...] as of this encounter Progress Notes * Cleo Tompkins RN - 05/16/2018 10:13 AM CST Pt's , [facility], calls to ask if pt can take his morning medications the day of his abdominal US. Advised that pt can take his medications with a sip of water. [facility] also requests that lab orders beplaced for [facility]. Order placed. R COACH TOUR OPERATOR documented in this encounter Plan of Treatment Upcoming Encounters Date Type Department Care Team (Late st Contact Info) Description 07/09/2024 12:30 PM MOTOR COACH TOUR OPERATOR Office Visit [facility] - GI [address] [place] [address], [place] [address] Twin Miller MD [address] [place] [address] [place] [address] 09/19/2024 2:00 PM CDT Office Visit [facility] - Orthopedic Surgery [address] [place] [address] Larry Alexander MD [address] [facility] [address] [place] [address] documented as of this encounter Visit Diagnoses Not on filedocumented in this encounter Additional Health Concerns Infection Onset Date Last Indicated Resolved Time 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
--- OUTSIDE RECORDS SUMMARY | 2024-05-24 23:40 | XMS_ITS | Encounter Summary ---
Author Organization [facility] Address [address] [facility] [place] [address] Care Team Providers Care Punching Machine Operator Name Role Phone Briana Medeiros MD Primary Care Provider Reason for Visit * Auth/Cert Specialty Diagnoses / Procedures Referred By Contac t Referred To Contact Diagnoses Right hip infection Referral ID Status Reason Start Date Expiration Date Visits Re quested Visits Authorized [id number] 1 1 Encounter Details Date Type Department Care Team (Late st Contact Info) Description 02/04/2019 10:41 AM CDT Anesthesia Event [facility] [address] [place] [address] Oziel Gilliam DO [address] [facility] [place] [address] Jeffrey Angelo MD [address] [facility] [place] [address] Anesthesia Record Procedure Summary Procedure Name Responsible Anesthesiologist Anesthesia Start Time Anesthesia Stop Time IRRIGATION AND DEBRIDEMENT WOUND HIP (Right: Hip) Oziel Gilliam DO 02/04/19 1041 02/04/19 1202 Events Date Time Event Comment 02/04/2019 0858 1041 An Start 1041 An Start Data 1048 PT Reassessment 1048 Induction 1051 An Intubation 1110 Timeout Anesthesia part icipated in timeout at the time documented in the record by nursing. 1148 Extubation 1150 an stop data 1151 Electnc Sig 1159 ANPTO2 1202 An Stop Meds Name Total fentaNYL 250 mcg/5mL injection 150 mcg lidocaine 2% injection (20 mg/ml) 50 mg propofol 200mg/20mL injection 170 mg succinylcholine (ANECTINE) 100 mg/5 mL i njection 100 mg rocuronium 50mg/5mL injection 30 mg Phenylephrine HCl 10 MG/ML 400 mcg ondansetron 4 mg/2mL injection 4 mg sugammadex 200 mg/2 mL injection 189 mg diphenhydrAMINE 50mg/ml injection 12.5 m g ceFAZolin 2 g IVPB 2 g lactated ringers infusion 800 mL * Agents Name Insp. N2O Exp. Sevoflurane Exp. N2O O2 Insp. Sevoflurane * Blood No blood administrations on file. Lines, Drains, and Airways Type Details Placement Removal Trach 09/13/17; 1745; dr amy fay; [place]; Cuffed; 8 MM; 8.0 FR; 04/26/19 09/13/17 1745 by Yadira Taylor, DONTAE 04/26/19 0000 by Lexie Marquis, [facility] Enteral - 09/15/17; 0915; Dr. Guerra; PEG; Abdomen, Left; Well; 10/28/23 (removed long ago); 204209/15/17 0915 by Denise Damon, DONTAE 10/28/23 204 by Sonia Hunter, DONTAE Peripheral IV Date: 02/03/19; Time : 1330; Orientation: Posterior, Right; Placed By: aileen 02/03/19 1330 by Glendy Muse, DONTAE 02/06/19 1552 by Caridad Bernstein, RN ETT Date: 02/04/19; Time : 1051; Placed By: Mikael [facility]; Vent: easy mask; Induction: Standard IV; Blade Type: Juan; Blade Size: 4; Laryngoscopy View: Grade 2 (partial cords); Intubation Adjuncts: Stylet, Cricoid Pressure; Tube: Endotracheal Tube; Placement: Oral; Tube Type: Cuffed-inflated; Tube Size(mm): 8 MM; Depth of Insertion: 22 CM; Measured From: lips; Attempts: 1; Cuff Infated: Air; Verified By: Direct visualization, Bilateral breath sounds, Chest Auscultation, CO2 Monitor 02/04/19 1051 by Mikael Rosales APRN-CRNA 02/04/19 1148 by Mikael Rosales APRN-GUILLERMO Procedural Site (Incision) 02/04/19; 1111; Right; Hip; 02/08/19; 1000 02/04/19 1111 by Suzy Burleson RN 02/08/19 1000 by Vasquez Saleh RN documented in this encounter Social History [...] as of this encounter Progress Notes * Oziel Gilliam, - 02/04/2019 1:00 PM CDT ANESTHESIA POSTOP EVALUATION NOTE Procedure: RIGHT HIP IRRIGATION AND DEBRIDEMENT, WOUND VAC PLACEMENT (Right Hip) Mason Keys is a 68 year old male Patient Vitals for the past 6 hrs: BP Temp Pulse Resp SpO2 Pain Rating Score #1 02/04/19 1541 91/55 -- -- -- -- -- 02/04/19 1641 100/63 -- -- -- -- -- 02/04/19 1711 88/60 97.3 ??F (36.3 ??C) 88 18 100 % -- 02/04/19 1900 116/66 -- -- -- -- -- 02/04/191999 -- -- 84 18 100 % -- 02/04/192023 -- -- -- -- -- 7 02/04/192029 87/60 97.4 ??F (36.3 ??C) 82 20 100 % -- 02/04/192030 103/55 -- -- -- -- -- 02/04/192039 -- -- -- -- -- 8 Anesthesia Type: general * No Diagnosis Codes entered * Mental Status: awake and sufficiently recovered from acute administration of anesthesia to participate in the evaluation Neuro Status: No numbness, tingling or visual disturbances Respiratory Function: natural Cardiac Function: stable Postop Pain: acceptable to the patient Postop Hydration: adequate Postop Nausea: none Assessment: no apparent anesthetic complications, patient tolerated procedure well and no evidence of recall Patient Disposition: Release from Anesthesia Care Non Reportable Improvement Section (otherwise blank): * Jeffrey Angelo MD - 02/03/2019 10:31 AM CDT ANESTHESIA PREOPERATIVE EVALUATION NOTE Procedure: Right Hip Aspiration, Possible I&D, & Revision (Right Hip) Vitals: Patient Vitals for the past 6 hrs: BP Temp Pulse Resp SpO2 Pain Rating Score #1 02/03/19 0844 -- -- -- -- -- 7 02/03/19 0821 125/68 (!) 100.3 ??F (37.9 ??C) 101 20 99 % -- 02/03/19 0755 -- -- 84 20 -- -- 02/03/19 0614 -- -- -- -- -- 5 02/03/19 0506 -- -- -- -- -- 8 ANESTHESIA PRE-EVALUATION NOTE Physical Exam: Orientation X3 Airway/Mallampati Score: II Mouth Opening Distance: 2.5 fingerwidths Neck ROM: limited Teeth: dentures/partials lower and dentures/partials upper Heart: regular rate rhythm Lungs: normal Physical Exam Additional Comments: Full upper dentures, partial lower dentures ANESTHESIA PLAN ASA Score: 3 NPO Status: No solids since midnight and No liquids within 2 hours Anesthesia Plan: general Planned Induction: intravenous Planned Postop Destination: PACU Anesthetic plan was discussed with: patient BMI, Height, Weight Tobacco History Estimated body mass index is 29.01 kg/m?? as calculated from the following: Height as of this encounter: 1.803 m (5' 11 ). Weight as of this encounter: 94.3 kg (208 lb). Social History Tobacco Use Smoking Status Former Smoker ??? Last attempt to quit: 06/06/1981 ??? Years since quittin.6 Smokeless Tobacco Never Used Alcohol History Drug History Social History Substance and Sexual Activity Alcohol Use No Social History Substance and Sexual Activity Drug Use No Outpatient Medications: Inpatient Medications: Outpatient Medications Marked as Taking for the 02/02/19 encounter (Hospital Encounter) Medication Sig Last Dose ??? acetaminophen Take 650 mg by mouth every 4 hours as needed 02/02/2019 at 0900 ??? albuterol 2.5 mg. 02/02/2019 at Unknown time ??? Ascorbic Acid Take 500 mg by mouth 2 times daily 02/01/2019 at Unknown time ??? aspirin Take 81 mg by mouth DAILY. 02/02/2019 at Unknown time ??? baclofen Take 10 mg by mouth 2 times daily 02/01/2019 at Unknown time ??? bumetanide Take 0.5 mg by mouth 2 times daily 02/02/2019 at Unknown time ??? [DISCONTINUED] diphenhydrAMINE Take 25 mg by mouth every 4 hours as needed for Itching 02/02/2019 at Unknown time ??? diphenhydrAMINE Take 25 mg by mouth every 6 hours as needed for Itching ??? ELIQUIS Take 5 mg by mouth 2 times daily 02/02/2019 at Unknown time ??? ferrous sulfate Take 325 mg by mouth daily with breakfast ??? metoprolol succinate XL 24hr Take 50 mg by mouth once daily ??? nystatin APPLY TO AFFECTED AREA TWICE A DAY 02/02/2019 at Unknown time ??? omeprazole Take 40 mg by mouth daily before breakfast ??? Oxygen Use 1 L as directed 1 LITER AT BEDTIME AND PRN 02/01/2019 at Unknown time ??? roflumilast Take 500 mcg by mouth once daily ??? SYMBICORT INHALE 2 PUFFS BY MOUTH TWICE A DAY 02/02/2019 at Unknown time ??? tamsulosin Take 0.4 mg by mouth at bedtime 02/01/2019 at Unknown time ??? triamcinolone acetonide APPLY A THIN LAYER TOPICALLY FOUR TIMES DAILY TO THE AFFECTED AREA 02/02/2019 at Unknown time ??? vitamin B-12 Take 500 mcg by mouth once daily 02/02/2019 at Unknown time ??? vitamin D (ergocalciferol) Take 50,000 Units by mouth every 7 days 01/31/2019 at Unknown time ??? zinc sulfate Take 220 mg by mouth once daily 02/02/2019 at Unknown time Current Facility-Administered Medications Medication Dose Last Dose ??? 0.9% NaCl ??? acetaminophen 650 mg ??? albuterol 2.5 mg 2.5 mg at 02/03/19 0755 ??? ascorbic acid 500 mg 500 mg at 02/03/19 1005 ??? aspirin 81 mg 81 mg at 02/03/19 1005 ??? baclofen 10 mg 10 mg at 02/03/19 1005 ??? budesonide-formoterol 2 puff 2 puff at 02/03/19 0755 ??? cefepime 2 g Stopped at 02/03/19 0535 ??? cyanocobalamin 500 mcg 500 mcg at 02/03/19 1004 ??? dextrose 25-50 mL ??? fentaNYL (PF) 25 mcg 25 mcg at 02/03/19 0844 ??? glucagon 1 mg ??? glucose (Diabetic Use) ??? insulin aspart 0-12 Units ??? metoprolol succinate XL 24hr 25 mg 25 mg at 02/03/19 1004 ??? ondansetron 4 mg ??? pantoprazole EC 40 mg 40 mg at 02/03/19 1005 ??? tamsulosin 0.4 mg 0.4 mg at 02/03/19 0005 ??? vancomycin (VANCOCIN) IV dose per pharmacy ??? vancomycin 1,500 mg ??? zinc sulfate 220 mg 220 mg at 02/03/19 1005 Allergies: Allergies Allergen Reactions ??? Penicillins Skin Reactions and Swelling Relevant Problems No relevant active problems Problem [...] 2008 ??? Tracheostomy N/A 09/13/2017 N/A; TRACHEOSTOMY Lab Results: Recent Labs Component Name 02/03/19 010 WBC 14.2* HGB 9.9* HCT 32.9* PLTCOUNT 241 INR 1.1 Recent Labs Component Name 02/03/19 0106 SODIUM 134* POTASSIUM 4.3 CHLORIDE 101 CO2 25 BUN 19 CREATININE 1.22* Recent Labs Component Name 02/03/19 010 GLUCOSE 112* CALCIUM 9.5 ALT 21 AST 20 documented in this encounter Procedure Notes * Mikael Rosales APRN-CRNA - 02/04/2019 11:02 AM CDTAssociated Order(s): ETT Placement Endotracheal Tube Placement: Patient Location: OR. Intubation Event Date/Time: 02/04/2019 10:51 AM Procedure: intubation (35820). Procedure Section: Sedation: under general anesthesia. Indications [...] tape. Difficult Airway? No. Procedure Start Time: 02/04/2019 10:51 AM. Procedure End Time: 02/04/2019 10:52 AM. Procedure Total Time: 1 minutes. Staff Section Anesthesia Provider: Mikael Rosales APRN-CRNA, Performed the procedure documented in this encounter Miscellaneous Notes * Anesthesia Transfer of Care - Mikael Rosales APRN-CRNA - 02/04/2019 12:00 PM CDT ANESTHESIA TRANSFER OF CARE NOTE Today's Date: 02/04/2019 Date of : 1950 Patient: Mason Keys Procedure(s): RIGHT HIP IRRIGATION AND DEBRIDEMENT, WOUND VAC PLACEMENT Surgeon(s): Primary: Larry Alexander MD Preop Diagnosis: * No Diagnosis Codes entered * Pre-op Meds (From admission, onward) Start Stop Status Route Frequency Ordered 02/02/19 2300 0.9% NaCl infusion 02/01 2259 Dispensed IV CONTINUOUS 02/02/19221802/02/192219 acetaminophen (TYLENOL) tablet 650 mg -- Verified PO EVERY 6 HOURS PRN 02/02/19221902/02/19 221 albuterol (PROVENTIL;VENTOLIN) (2.5 MG/3ML) 0.083% nebulizer solution 2.5 mg -- Dispensed IN EVERY 6 HOURS 02/02/19220702/02/19 224 ascorbic acid (VITAMIN C) tablet 500 mg -- Dispensed PO 2 TIMES DAILY 02/02/19221502/03/19899 aspirin chew tablet 81 mg Note to Pharmacy: OP sig: Take 81 mg by mouth DAILY. -- Dispensed PO DAILY 02/02/19221502/02/19 224 baclofen (LIORESAL) tablet 10 mg Note to Pharmacy: OP sig: Take 10 mg by mouth 2 times daily 02/01 2059 Dispensed PO 2 TIMES DAILY 02/02/19221502/02/19 224 budesonide-formoterol (SYMBICORT) 160-4.5 MCG/ACT inhaler 2 puff -- Dispensed IN 2 TIMES DAILY 02/02/19221502/04/19 113 ceFAZolin (ANCEF) 2,000 mg in 50 ml IVPB -- Sent PRN 02/04/19113502/02/19 224 cefepime (MAXIPIME) 2,000 mg in 0.9% NaCl 50 mL IVPB 02/09 235 Dispensed IV EVERY 8 HOURS 02/02/19221202/03/19 0900 cyanocobalamin (VITAMIN B-12) tablet 500 mcg Note to Pharmacy: OP sig: Take 500 mcg by mouth once daily 02/02 08 Dispensed PO DAILY 02/02/19221502/03/19 0958 dextrose IV 12.5-25 g -- Verified IV PRN 02/03/19 0958 02/04/19 1108 diphenhydrAMINE (BENADRYL) injection -- Sent PRN 02/04/19 1108 02/04/19 1042 fentaNYL (PF) (SUBLIMAZE) injection -- Sent PRN 02/04/19 1106 02/02/19 2217 fentaNYL (PF) (SUBLIMAZE) injection 25 mcg -- Dispensed IV EVERY 4 HOURS PRN 02/02/19 2217 02/03/19 0958 glucagon (GLUCAGEN) injection 1 mg -- Verified IM PRN 02/03/19 0958 02/03/19 0958 glucose (Diabetic Use) oral gel 02/02 0957 Verified PO PRN 02/03/19 0958 02/03/19 1200 insulin aspart (NovoLOG) pen 0-12 Units 02/02 1159 Dispensed SC 3 TIMES DAILY WITH MEALS 02/03/19 0958 02/04/19 1025 lactated ringers infusion -- Sent CONTINUOUS PRN 02/04/19 1109 02/04/19 1048 lidocaine (XYLOCAINE) 2 % injection -- Sent PRN 02/04/19 1106 02/03/19 0900 metoprolol succinate XL 24hr (TOPROL XL) tablet 25 mg Note to Pharmacy: OP sig: Take 50 mg by mouth once daily 02/02 0859 Dispensed PO DAILY 02/02/19221502/02/19 221 ondansetron (ZOFRAN) injection 4 mg -- Verified IV EVERY 6 HOURS PRN 02/02/19 2217 02/04/19 1108 Ondansetron HCl (ZOFRAN) injection -- Sent PRN 02/04/19 1109 02/04/19 0910 oxyCODONE-acetaminophen (PERCOCET) 10-325 MG tablet 1 tablet 02/03 0909 Verified PO EVERY 4 HOURS PRN 02/04/19 0910 02/03/19 09 pantoprazole EC (PROTONIX) tablet 40 mg -- Dispensed PO DAILY 02/02/19 2216 02/04/19 1057 Phenylephrine HCl (ZULY-SYNEPHRINE) injection -- Sent IV PRN 02/04/19 1110 02/04/19 1048 propofol (DIPRIVAN) injection -- Sent PRN 02/04/19 1106 02/04/19 1053 rocuronium (ZEMURON) injection -- Sent IV PRN 02/04/19 1106 02/04/19 1048 succinylcholine (ANECTINE) injection -- Sent PRN 02/04/19 1106 02/04/19 1147 sugammadex (BRIDION) injection -- Sent PRN 02/04/19 1150 02/02/19 2245 tamsulosin (FLOMAX) capsule 0.4 mg Note to Pharmacy: OP sig: Take 0.4 mg by mouth at bedtime 02/01 2059 Dispensed PO AT BEDTIME 02/02/19221502/02/19 221 vancomycin (VANCOCIN) IV dose per pharmacy 02/09 221 Dispensed XX DIRECTED 02/02/19221202/03/19 1400 vancomycin HCl (VANCOCIN) 1,500 mg in 0.9% NaCl 500 mL IVPB 02/10 1359 Dispensed IV EVERY 12 HOURS 02/03/19 0353 02/03/19 0900 zinc sulfate (ZINCATE) capsule 220 mg -- Dispensed PO DAILY 02/02/19 221 * No Diagnosis Codes entered * . Allergies Allergen Reactions ??? Penicillins Skin Reactions and Swelling Vitals: No data found. Lines, Drains, and Airways Type Details Placement Removal Enteral - 09/15/17; 0915; Dr. Guerra; PEG; Abdomen, Left; Well 09/15/17 0915 by Denise Damon, RN Peripheral IV 02/03/19; 1330; Posterior, Right; Hand; ariley; 22 Gauge ; Anatomical Landmarks; 2 02/03/19 1330 by Glendy Muse, RN ETT 02/04/19; 1051 (created via procedure documentation); EM LeonUNCLAIMED PROPERTY MANAGER; easy mask;Standard IV; Juan; 4; Grade 2 (partial cords); Stylet, Cricoid Pressure; Endotracheal Tube; Oral; Cuffed-inflated; 8 MM; 22 CM; lips; 1; Air; Direct visualization, Bilateral breath sounds, ChestAuscultation, CO2 Monitor; 02/04/19; 1148 02/04/19 1051 by Mikael Rosales APRN-UNCLAIMED PROPERTY MANAGER 02/04/19 1148 by Mikael Rosales APRN-CRNA Intraprocedure I/O Totals Anesthesia Other Output Estimated Blood Loss 25 mL lactated ringers infusion Volume infused 800 [...] of report from the receiving PACUteam. SYDNIE Leon documented in this encounter Plan of Treatment Upcoming Encounters Date Type Department Care Team (Late st Contact Info) Description 07/09/2024 12:30 PM CAGE LOADER Office Visit [facility] - GI [address] [place] [address], [place] [id number] Twin Miller MD [address] [place] [address] [place] [address] 09/19/2024 2:00 PM CDT Office Visit [facility] - Orthopedic Surgery [address] [place] [address] Larry Alexander MD [address] [facility] [address] [place] [address] documented as of this encounter Procedures Procedure Name Priority Date/Time Associated Diagnosis Comments ENDOTRACHEAL TUBE NOTE Routine 02/04/2019 11:02 AM CDT documented in this encounter Results * ENDOTRACHEAL TUBE NOTE (02/04/2019 11:02 AM CDT) Narrative Mikael Rosales APRN-CRNA - 02/04/2019 11:02 AM CDT Mikael Rosales APRN-CRNA ? 02/04/2019 11:03 AM Endotracheal Tube Placement: ? Patient Location: OR. Intubation Event Date/Time: ??02/04/2019 10:51 AM Procedure: intubation ([id number]). Procedure Section: ?? Sedation: under general anesthesia. [...] Staff Section ?? Anesthesia Provider: Mikael Rosales APRN-CRNA, Performed the procedure Oziel Gilliam DO GENERAL ANESTHESIA O RDERABLES documented in this encounter Visit Diagnoses Not on filedocumented in this encounter Administered Medications Inactive Administered Medications - up to 3 most recent administrations Medication Order MAR Action Action Date Dose Rate Site ceFAZolin (ANCEF) 2,000 mg in 50 ml IVPB PRN, Starting on 02/04/19 at 1136, Until 02/04/19 at 1202, Anesthesia Intra-op $ Given 02/04/2019 11:36 AM CDT 2 g diphenhydrAMINE (BENADRYL) injection PRN, Starting on 02/04/19 at 1108, Until 02/04/19 at 1202, Anesthesia Intra-op $ Given 02/04/2019 11:08 AM CDT 12.5 mg fentaNYL (PF) (SUBLIMAZE) injection PRN, Starting on 02/04/19 at 1042, Until 02/04/19 at 1202, Anesthesia Intra-op $ Given 02/04/2019 11:13 AM CDT 50 mcg $ Given 02/04/2019 10:47 AM CDT 50 mcg $ Given 02/04/2019 10:42 AM CDT 50 mcg lactated ringers infusion CONTINUOUS PRN, Starting on 02/04/19 at 1025, Until 02/04/19 at 1202, Anesthesia Intra-op $ New Bag/Syringe 02/04/2019 10:25 AM CDT lidocaine (XYLOCAINE) 2 % injection PRN, Starting on 02/04/19 at 1048, Until 02/04/19 at 1202, Anesthesia Intra-op $ Given 02/04/2019 10:48 AM CDT 50 mg Ondansetron HCl (ZOFRAN) injection PRN, Starting on 02/04/19 at 1108, Until 02/04/19 at 1202, Anesthesia Intra-op $ Given 02/04/2019 11:08 AM CDT 4 mg Phenylephrine HCl (ZULY-SYNEPHRINE) injection Intravenous, PRN, Starting on 02/04/19 at 1057, Until 02/04/19 at 1202, Anesthesia Intra-op $ Given 02/04/2019 11:36 AM CDT 100 mcg $ Given 02/04/2019 11:29 AM CDT 100 mcg $ Given 02/04/2019 11:01 AM CDT 100 mcg propofol (DIPRIVAN) injection PRN, Starting on 02/04/19 at 1048, Until 02/04/19 at 1202, Anesthesia Intra-op $ Given 02/04/2019 10:48 AM CDT 170 mg rocuronium (ZEMURON) injection Intravenous, PRN, Starting on 02/04/19 at 1053, Until 02/04/19 at 1202, Anesthesia Intra-op $ Given 02/04/2019 10:53 AM CDT 30 mg succinylcholine (ANECTINE) injection PRN, Starting on 02/04/19 at 1048, Until 02/04/19 at 1202, Anesthesia Intra-op $ Given 02/04/2019 10:48 AM CDT 100 mg sugammadex (BRIDION) injection PRN, Starting on 02/04/19 at 1147, Until 02/04/19 at 1202, Anesthesia Intra-op $ Given 02/04/2019 11:47 AM CDT 189 mg documented in this encounter Additional Health Concerns Infection Onset Date Last Indicated Resolved Time MRSA 09/12/2017 04/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 Care Teams Punching Machine Operator Relationship Specialty Start Date End Date Briana Medeiros MD [address] [place], [place] [id number] PCP - General 02/15/18 02/22/22 documented as of this encounter
--- OUTSIDE RECORDS SUMMARY | 2024-05-24 23:40 | XMS_ITS | Encounter Summary ---
Author Organization [facility] Address [address] [facility] [place] [address] Care Team Providers Care [place]reman Name Role Phone Briana Medeiros MD Primary Care Provider [phone] Encounter Details Date Type Department Care Team (Late st Contact Info) Description 08/18/2018 Orders Only [facility] GI [address] [place] [address] Aldo Vásquez MD [address] [place] [address] 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) Social [...] Contact Info) Description 07/09/2024 12:30 PM RUBBER GOODS INSPECTOR TESTER Office Visit [facility] - GI [address] [facility], [place] [address] Twin Miller MD [facility] [facility] [address]L DIV [place] [address] 09/19/2024 2:00 PM CDT Office Visit [facility] - Orthopedic Surgery [address] [place] [address] Larry Alexander MD [address] [facility] [address] [place] [address] documented as of this encounter Visit Diagnoses Diagnosis 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) Other chronic nonalcoholic liver disease documented in this encounter Additional Health Concerns Infection Onset Date Last Indicated Resolved Time MRSA 09/12/2017 04/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 Care Teams [place] Relationship Specialty Start Date End Date Briana Medeiros MD [address] [place] [id number] PCP - General 02/15/18 02/22/22 documented as of this encounter
--- OUTSIDE RECORDS SUMMARY | 2024-05-24 23:41 | XMS_ITS | Encounter Summary ---
Author Organization [facility] Address [address] [place] [address] Care Team Providers Care Animal Keeper Head Name Role Phone Briana Medeiros MD Primary Care Provider [phone] Reason for Visit * Auth/Cert Specialty Diagnoses / Procedures Referred By Contac t Referred To Contact Diagnoses ACUTE HYPOXEMIC RESPIRATORY FAILURE Referral ID Status Reason Start Date Expiration Date Visits Re quested Visits Authorized [id number] 1 1 Encounter Details Date Type Department Care Team (Late st Contact Info) Description 09/13/2017 5:06 PM CDT Anesthesia Event [facility] [address] [place] [address] Philip Posada, DO [address] [place] [address] Bandar Meek, DO [address] [place] [address] Anesthesia Record Procedure Summary Procedure Name Responsible Anesthesiologist Anesthesia Start Time Anesthesia Stop Time TRACHEOSTOMY (Neck) Philip Posada DO 8 1706 09/13/17 1822 Events Date Time Event Comment 09/13/2017 1706 Pt In Room Pt brought down from 7IICU, bagged, 100% Fio2, VSS during transport 1706 An Start 1707 An Start Data 1710 Anes Timeout 1710 PT Reassessment 1711 Induction 1718 Anes Ready 1727 Time Out Anesthesia part icipated in timeout at the time documented in the record by nursing 1752 An Emergence 1806 an stop data 1806 Electnc Sig 1806 Pt out of Room 180 ANPTO2 1822 An Stop Meds Name Total fentaNYL 100 mcg/2ml injection 50 mcg lidocaine PF 2% 40 mg propofol 200mg/20mL injection 50 mg rocuronium 50 mg/5 mL injection 40 mg phenylephrine 40 mcg/ml 10 ml syringe 80 0 mcg Isolyte-S infusion 500 mL * Agents Name Insp. N2O Exp. Sevoflurane Exp. N2O O2 Air Insp. Sevoflurane * Blood No blood administrations on file. Lines, Drains, and Airways Type Details Placement Removal Procedural Site (Incision) 07/29/17; 1240; Left; (flank); 09/14/17; 1104 07/29/17 1240 by Rhona Salgado RN 09/14/17 1104 by Azeb Bueno, DONTAE Gastric Tube 09/06/17; 2130; Shin Lemon RN; Other ([place]); Nostril/Nare, Left; 09/13/17; 1800 (in OR); Other (Comments) (removed when trach placed) 09/06/17 2130 by Rhona Salgado RN 09/13/17 1800 by Glendy Murphy APRN-JEANNIE Urethral Catheter 09/08/17; 0440; Kim Joshua RN; Double-lumen / 2-Way; No; 18; 5 mL; 09/16/17; 1600; Per order 09/08/17 0440 by Rhona Salgado RN 09/16/17 1600 by Maria Elena Maloney RN Drain 09/08/17; 1220; Othe r (comments) (chest tube); Left; Chest; 09/14/17; 1649; Per order 09/08/17 1220 by Rhona Salgado RN 09/14/17 1649 by Azeb Bueno RN Peripheral IV Date: 09/12/17; Time : 0558; Orientation: Right; Placed By: Ananya Molina RN; Tolerance: Well 09/12/17 0558 by Ananya Molina RN 09/16/17 1700 by Maria Elena Maloney RN Peripheral IV Date: 09/12/17; Time : 1320; Orientation: Right; Placed By: Dominik Mak RN; Tolerance: Well 09/12/17 1320 by Dominik Mak RN 09/17/17 0425 by Grecia Feliciano RN Trach 09/13/17; 1745; dr bermudez; [place]; Cuffed; 8 MM; 8.0 FR; 04/26/19 09/13/17 1745 by Yadira Taylor RN 04/26/19 0000 by Lexie Marquis TRAINING AND DEVELOPMENT PROFESSIONAL documented in this encounter Social History Tobacco [...] or have serious hearing difficult y? No 09/10/2017 Is person blind or have serious difficulty seein g? No 09/10/2017 Does person have serious dif ficulty walking/climbing stairs? Yes 09/10/2017 Does person have difficulty dressing/bathing? Ye s 09/10/2017 Does person have difficulty doing errands alone? Yes 09/10/2017 Cognitive Status Response Date of Assessm ent Does person have difficulty concentrating/remembering/making decisions? No 09/10/2017 documented as of this encounter Progress Notes * Ivan Haddad, DO - 09/14/2017 9:32 AM CDT ANESTHESIA POSTOP EVALUATION NOTE Procedure: TRACHEOSTOMY (N/A Neck) Mason Keys is a 66 y.o. male Patient Vitals for the past 6 hrs: BP Temp Pulse Resp SpO2 O2 % (FiO2) O2 DEVICE Activity Pain Scale/Observation Pain Rating Score #1 Pain Location Pain Orientation Pain Quality 09/14/17 0900 - - 99 21 100 % 40 % Humidified;Heated - - - - - - 09/14/17 0844 - - 87 - - - - - - - - - - 09/14/17 0842 - - - - - - - - - 7 - - - 09/14/17 0820 - - - - - - - - - 7 - - - 09/14/17 0600 98/57 98.4 ??F (36.9 ??C) 95 21 96 % 40 % - - No/denies pain - - - - 09/14/17 0528 112/70 - 92 21 95 % - - - - - - - - 09/14/17 0525 - - - - - 40 % - - - - - - - 09/14/17 0524 - - 89 20 93 % 40 % Heated;Humidified;Ventilator - No/denies pain - - - - 09/14/17 0500 96/58 - 91 17 92 % - - In Bed - - - - - 09/14/17 0400 103/52 - 94 22 91 % - - - - - - - - 09/14/17 0345 - - - - - - - - - 8 Back Lower Aching Anesthesia Type: general Pre-op Diagnosis Codes: * Chronic respiratory failure with hypoxia [J96.11] Postop Diagnosis: See Surgeon Note Mental Status: awake Neuro Status: No numbess, tingling or visual disturbances Respiratory Function: mechanical ventilation Cardiac Function: stable Postop Pain: acceptable to the patient Postop Hydration: adequate Postop Nausea: none Assessment: no apparent anesthetic complications, patient tolerated procedure well and no evidence of recall Patient Disposition: Release from Anesthesia Care * Philip Posada DO - 09/13/2017 6:51 PM CDT ANESTHESIA POSTOP EVALUATION NOTE Procedure: TRACHEOSTOMY (N/A Neck) Mason Keys is a 66 y.o. male Patient Vitals for the past 6 hrs: BP Temp Pulse Resp SpO2 SP02 Frequency O2 % (FiO2) O2 DEVICE Activity Pain Scale/Observation Pain Intervention(s) Non-pharmacological interventions Is Patient Intubated? Intubated - Facial ExpressionIntubated - Body Movements Intubated - Muscle Tension Evaluation Intubated - Patient Compliance w/ Vent TOTAL - INTUBATED Patient 09/13/17 1830 129/80 98.3 ??F (36.8 ??C) 80 15 100 % Continuous - Ventilator In Bed - - - Yes 1 0 10 2 09/13/17 1700 - - 83 17 95 % - 40 % Ventilator - - - - - - - - - - 09/13/17 1600 123/74 - 91 22 93 % - 40 % Ventilator - - - - - - - - - - 09/13/17 1500 109/68 - 81 16 95 % - 40 % Ventilator - - - - - - - - - - 09/13/17 1402 - - 91 - 97 % - 40 % - - - - - - - - - - - 09/13/17 1400 100/60 - 82 16 98 % - 40 % Ventilator - CC Non-pharmacological Rest Yes 0 0 0 0 0 09/13/17 1351 - - - 24 98 % - - - - - - - - - - - - - 09/13/17 1350 - - 75 24 98 % - 40 % Ventilator - - - - - - - - - - 09/13/17 1300 109/62 98.3 ??F (36.8 ??C) 85 18 95 % - - - - - - - - - - - - - Anesthesia Type: general Pre-op Diagnosis Codes: * Chronic respiratory failure with hypoxia [J96.11] Postop Diagnosis: See Surgeon Note Mental Status: sedated and neurologic status has returned to perioperative level Respiratory Function: mechanical ventilation Cardiac Function: stable Postop Pain: acceptable to the patient Postop Hydration: adequate Postop Nausea: none Assessment: no apparent anesthetic complications Patient Disposition: Follow Up Needed documented in this encounter Consult Notes * Philip Posada DO - 09/13/2017 4:41 PM CDT ANESTHESIA PREOPERATIVE EVALUATION NOTE Procedure: TRACHEOSTOMY (N/A Neck) Vitals: Patient Vitals for the past 6 hrs: BP Temp Pulse Resp SpO2 SP02 Frequency O2 % (FiO2) O2 DEVICE Activity Pain Scale/Observation Pain Rating Score #1 Pain Location Pain Intervention(s) Non- pharmacological interventions Is Patient Intubated? Intubated - Facial Expression Intubated - Body Movements Intubated - Muscle Tension Evaluation Intubated - Patient Compliance w/ Vent TOTAL - INTUBATED Patient 09/13/17 1500 109/68 - 81 16 95 % - 40 % Ventilator - - - - - - - - - - - - 09/13/17 1402 - - 91 - 97 % - 40 % - - - - - - - - - - - - - 09/13/17 1400 100/60 - 82 16 98 % - 40 % Ventilator - CC - - Non-pharmacological Rest Yes 0 0 0 0 0 09/13/17 1351 - - - 24 98 % - - - - - - - - - - - - - - - 09/13/17 1350 - - 75 24 98 % - 40 % Ventilator - - - - - - - - - - - - 09/13/17 1300 109/62 98.3 ??F (36.8 ??C) 85 18 95 % - - - - - - - - - - - - - - - 09/13/17 1200 89/58 - 84 16 95 % Continuous 40 % Ventilator In Bed N 6 - Non- pharmacological Reposition;Distraction - - - - - - 09/13/17 1115 - - - - - - - - - N 7 Back Medication (see MAR) - - - - - - - 09/13/17 1100 94/58 - 85 23 90 % - - - - - - - - - - - - - - - ANESTHESIA PRE-EVALUATION NOTE History of Present Illness: 67yM to OR trach. MRSA+. Has been intubated x2 this admission. Previous Airway Management: ETT Placed: Physical Exam: Physical Exam Additional Comments: Patient intubated and sedated Diagnostic Tests: Lab(s) reviewed: Yes. ANESTHESIA PLAN ASA Score: 3 NPO Status: No solids since midnight Anesthesia Plan: general Planned Induction: inhalation Planned Postop Destination: ICU ICU Plans: ventilation and hemodynamic monitoring The patient's procedural Anesthetic Plan with discussed with the resident. Attending Provider: I have reviewed the chart, I have interviewed and examined the patient, I agree with the documentation and have dicussed the anesthesia plan w/ the Resident, HEATING TECHNICIAN or AA and The pateint agrees with the plan and accpets the risks and benefits I attest to documenting, updating or reviewing a patient's current medications using all immediate resources available on the date of the encounter. This list must include ALL known prescriptions, jzte-wha-tbywnhak, herbals, and vitamin/mineral/dietary (nutritional) supplements AND must contain the medications' name, dosages, frequency and route of administration. Attending's additional comments: To OR directly from ICU for tracheostomy.. BMI, Height, Weight Tobacco History Estimated body mass index is 29.83 kg/(m^2) as calculated from the following: Height as of this encounter: 1.778 m (5' 10 ). Weight as of this encounter: 94.3 kg (207 lb 14.3 oz). History Smoking Status ??? Former Smoker ??? Quit date: 06/06/1981 Smokeless Tobacco ??? Never Used Alcohol History Drug History History Alcohol Use No History Drug Use No Outpatient Medications: Inpatient Medications: Current Outpatient Prescriptions Medication Sig Last Dose ??? albuterol 2.5 mg. ??? clobetasol ??? oxyCODONE (immediate release) 5 mg q8h. ??? hydrOXYzine hcl Take 25 mg by mouth BID. ??? amiodarone 200 mg BID. ??? oxyCODONE (immediate release) 5 mg q4h PRN. ??? HUMALOG Inject 0 Units subcutaneously. ??? lidocaine Apply 2 patches to skin DAILY. ??? sodium chloride (Inhalant) Inhale 4 mL by mouth BID. Current Facility-Administered Medications Medication Dose Last Dose ??? enoxaparin 40 mg ??? senna 8.6 mg 8.6 mg at 09/13/17 0854 ??? polyethylene glycol 3350 17 g 17 g at 09/11/17 0842 ??? docusate sodium 100 mg 100 mg at 09/13/17 0853 ??? furosemide 20 mg 20 mg at 09/13/17 1623 ??? lidocaine 1 patch 1 patch at 09/13/17 0854 ??? albuterol 2.5 mg 2.5 mg at 09/13/17 1350 ??? amiodarone 200 mg 200 mg at 09/13/17 0854 ??? aspirin 81 mg 81 mg at 09/13/17 0854 ??? chlorhexidine 15 mL at 09/13/17 0853 ??? famotidine 20 mg Or ??? famotidine 20 mg 20 mg at 09/13/17 0854 ??? glucose (Diabetic Use) 15-30 g ??? glucagon 1 mg ??? insulin regular human 0-6 Units 1 Units at 09/10/17 1830 ??? metroNIDAZOLE 500 mg 500 mg at 09/13/17 0854 ??? oxyCODONE (immediate release) 5 mg 5 mg at 09/13/17 1623 ??? 0.9% NaCl 10 mL ??? fentanyl 0-300 mcg/hr ??? fentNYL 50 mcg ??? dextrose 25-50 mL ??? atorvastatin 20 mg 20 mg at 09/13/17 0858 ??? ceftaroline (TEFLARO) in 50 mL IVPB 600 mg 600 mg at 09/13/17 1623 Allergies: Allergies Allergen Reactions ??? Penicillins Skin Reactions and Swelling Problem List: Patient Active Problem List Diagnosis [...] Past Surgical History: Procedure Laterality Date ??? HX JOINT REPLACEMENT ??? HX JOINT REPLACEMENT right hip 2005, left hip 2008 Lab Tests: Recent Labs Component Name 09/13/17 0517 09/11/17 0437 09/10/17 0549 WBC 8.9 - 11.0* - HGB 8.5* - 8.7* - HCT 27.6* - 29.4* - INR - - 1.1 - PTT - - - 29.7 - = values in this interval not displayed. Recent Labs Component Name 09/13/17 0517 NA 139 POTASSIUM 4.6* CO2 31* BUN 26 CREATININE 0.6 Recent Labs Component Name 09/13/17 0517 09/06/17 1157 CALCIUM 9.0 - 8.5 MAGNESIUM 1.6 - - ALT - - 10 AST - - 21 - = values in this interval not displayed. No results for input(s): HCG in the last [id number] hours. documented in this encounter Miscellaneous Notes * Addendum Note - Philip Posada DO - 2017 10:03 AM CDT Addendum created 11/10/17 1003 by Philip Posada DO Anesthesia Attestations filed, Anesthesia Event edited, Procedure Event Log accessed documented in this encounter Plan of Treatment Upcoming Encounters Date Type Department Care Team (Late st Contact Info) Description 07/09/2024 12:30 PM MACHINIST 2ND SHIFT Office Visit [facility] GI [address] [place] [address] Twin Miller MD [address] [place] [address] 09/19/2024 2:00 PM CDT Office Visit [facility] - Orthopedic Surgery [address] [place] [id number] Larry Alexander MD [address] [facility] [address] [place] [address] documented as of this encounter Visit Diagnoses Not on filedocumented in this encounter Administered Medications Inactive Administered Medications - up to 3 most recent administrations Medication Order MAR Action Action Date Dose Rate Site fentaNYL (PF) (SUBLIMAZE) injection Intravenous, PRN, Starting on Tue09/13/17 at 1727, Until Tue09/13/17 at 1822, Anesthesia Intra-op $ Given 09/13/2017 5:27 PM CDT 50 mcg isolyte-S pH 7.4 infusion CONTINUOUS PRN, Starting on Tue09/13/17 at 1706, Until Tue09/13/17 at 1822, Anesthesia Intra-op $ New Bag/Syringe 09/13/2017 5:06 PM CDT lidocaine hcl (PF) (XYLOCAINE MPF) 2 % injection Infiltration, PRN, Starting on Tue09/13/17 at 1700, Until Tue09/13/17 at 1822, Anesthesia Intra-op $ Given 09/13/2017 5:00 PM CDT 40 mg phenylephrine 40 mcg/ml custom syringe Intravenous, PRN, Starting on Tue09/13/17 at 1703, Until Tue09/13/17 at 1822, Anesthesia Intra-op $ Given 09/13/2017 5:54 PM CDT 200 mcg $ Given 09/13/2017 5:39 PM CDT 100 mcg $ Given 09/13/2017 5:28 PM CDT 100 mcg propofol (DIPRIVAN) injection Intravenous, PRN, Starting on Tue09/13/17 at 1700, Until Tue09/13/17 at 1822, Anesthesia Intra-op $ Given 09/13/2017 5:00 PM CDT 50 mg rocuronium (ZEMURON) injection Intravenous, PRN, Starting on Tue09/13/17 at 1700, Until Tue09/13/17 at 1822, Anesthesia Intra-op $ Given 09/13/2017 5:22 PM CDT 20 mg $ Given 09/13/2017 5:00 PM CDT 20 mg documented in this encounter Additional Health Concerns Infection Onset Date Last Indicated Resolved Time MRSA 09/12/2017 04/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 Care Teams Animal Keeper Head Relationship Specialty Start Date End Date Briana Medeiros MD [address] [place] [place] [address] PCP - General Family Medicine 09/04/17 09/18/17 documented as of this encounter
--- OUTSIDE RECORDS SUMMARY | 2024-05-24 23:41 | XMS_ITS | Encounter Summary ---
Author Organization [facility] Address [address] [place] [address] Care Team Providers Care Methodologist Name Role Phone Briana Medeiros MD Primary Care Provider [phone] Mau Bridges MD Primary Care Provider [phone] Reason for Visit * Auth/Cert Specialty Diagnoses / Procedures Referred By Contsara t Referred To Contact Diagnoses ACUTE HYPOXEMIC RESPIRATORY FAILURE Referral ID Status Reason Start Date Expiration Date Visits Re quested Visits Authorized [id number] 1 1 Encounter Details Date Type Department Care Team (Latest Contact Info) Description 09/06/2017 3:40 PM CDT - 09/19/2017 1:20 PM CDT Hospital Encounter [facility] 7 ICU [address] [place] [address] Jason Nash MD [address] 2L DIV OF PULMONARY[facility] [address] Pulmonary Disease Discharge Disposition: Concrete [facility]cher Acute Care Social History Tobacco Use Types Packs/Day [...] Sign Reading Time Taken Comments Blood Pressure 119/65 09/19/2017 12:00 PM CDT Pulse 102 09/19/2017 12:17 PM CDT Temperature 36.6 ??C (97.8 ??F) 09/19/2017 7:45 AM CD T Respiratory Rate 17 09/19/2017 12:0 0 PM CDT Oxygen Saturation 100% 09/19/2017 12: 17 PM CDT Inhaled Oxygen Concentration 40% 12:17 PM CDT Weight 92.4 kg (203 lb 11.3 oz) 09/17/2017 5:00 AM CDT Height 177.8 cm (5' 10 ) 09/10/2017 2:25 AM CDT Body Mass Index 29.23 09/10/2017 2:25 AM CDT documented in this encounter Functional [...] Yes 09/19/2017 documented as of this encounter Discharge Summaries * Igor Gilliam MD - 09/19/2017 10:49 AM CDT Physician Discharge Summary Patient ID: José Miguel Keys [id number] y.o. 1950 Admit date: 09/06/2017 Discharge date: 09/19/17 at 12:30pm Admitting Physician: Jason Nash MD Discharge Physician: Poncho Bowers MD Admission Diagnoses: Chronic respiratory failure with hypoxia [J96.11] Dysphasia [R47.02] Discharge Diagnoses: Acute hypoxic respiratory failure from mucus plugging Discharged Condition: stable Hospital Course: 09/06 admitted to ICU intubated and on low dose vasopressors. Bronch completed. Wash sent for micro. 09/07 PSV trial, CT chest to eval L pleural effusion, extubation 4/ left pigtail drain placed. Tried tPa + dornase for 3 doses. Minimal response. Fluid was exudatewith 60% segmented neutrophils. Cultures were negative. 09/09 intubated for hypoxia. Bronchoscopy performed. Thick clear secretions L > R suctioned clear. 4/7: Sat out in the chair for nearly 5 hours. NO significant changes of hypoxia events. 09/11: patient tolerating vent well, plan for possible PERC trach tomorrow 09/12: planned for bedside perc trach however, bedside ultrasound revealed midline vessels prompting ENT consult for OR trach. 09/13: trach by ENT 09/14: tolerating the vent well with trach in place, chest tube removed. Ceftaroline stopped. 09/15: PEG placed by GI service Recommendations for management at LTAC: Nutrition: Promote at 70 ml/hr. 2 pkt of beneprotein QID with??150 ml water Provides 1872??kcal, 153??g protein, 2010 ml free water. (TF+Beneprotein+water) Pantoprazole 40mg qday per G tube for PUDG tube placed 09/15 ?? Skin care: Apply clabetasol .05% cream to sacrum, face and any other topical area that itches ?? Pain: 2 lidocaine patches on lower back qday Oxycodone 5mg every 6 hrs PRN ?? Sputum clearance: Albuterol nebs q6 hrs PRN ?? Antibiotic recommendations per ID: Completed antibiotics ?? Afib: Resume xarelto 20mg qday per tube for afib stroke prevention Amiodarone 200mg per tube BID ?? Activity Orders: Activity as tolerated. Needs TLSO brace when standing. TLSO brace does not need to be worn in bed. Also does not need to wear the brace while sitting up. ?? Diabetes: Resume metformin 500mg BID PO per tube sliding scale insulin ?? Hx of COPD: -avoid tiotropium and ipratropium since patient has issues with mucus plugging -albuterol nebs q6 PRN -patient has not received symbicort this admission. No need to continue it at this time. -may need therapeutic bronch 1-2x/week. Patient has week cough ?? Hypoxia: 8 shiley trach cuffed placed on 09/13 by ENT PSV trials(IPAP 12/PEEP 8) while awake during the day and Volume AC(RR=15, Qd=499, PEEP=8) with sleep Oral care BID ?? Follow-up appts: Orthopedics: 10/03/2017 9:30 AM Ronald Murray MD Request was sent for follow-up appt in liver clinic since patient has new diagnosis of cirrhosis. ?? Consults: ENT, GI, Intensive care Significant Diagnostic Studies: L pleural fluid: Results for JOSÉ MIGUEL KEYS ( ) as of 09/19/2017 12:53 Ref. Range 09/08/2017 12:33 09/08/2017 12:35 09/08/2017 12:35 Volume Latest Units: mL 1.0 Color Latest Ref Range: Colorless, Straw Bicknell (Abnormal) Clarity Latest Ref Range: Clear Slighty Cloudy (Abnormal) Differential Unknown Manual Differenti... WBC Fluid Latest Ref Range: Reference Range Not Established /uL 161 Segs % Fluid Latest Units: % 60 Lymphocytes % Fluid Latest Units: % 37 Monocytes % Fluid Latest Units: % 3 Glucose Fluid Latest Ref Range: Not Established For Fluids mg/dL 145 LD Fluid Latest Ref Range: Not Established For Fluids Units/L 172 pH Fluid Latest Ref Range: Not Established For Fluids 7.610 Total Protein Fluid Latest Ref Range: Not Established For Fluids g/dL 1.5 Micro: 09/06: blood cx x2 NGTD 09/06: bronchial wash culture NGTD 09/08: L pleural fluid cultures: NGTD 09/09: bronchial wash culture: NGTD Treatments: See hospital course Discharge Exam: General appearance: alert, cooperative, Head: Normocephalic, without obvious abnormality, atraumatic Neck: trach in place, 8 shiley Lungs: clear to auscultation bilaterally, no crackles, no wheezes, chest expansion normal Heart: RRR, normal S1 and S2, no murmur Abdomen: soft, non-tender; bowel sounds normal; no masses, G tube in place Extremities: extremities normal, atraumatic, no cyanosis or edema Pulses: 2+ and symmetric Skin: dry skin with faint rash on face from tube gomez while patient was intubated Neurologic: nonfocal, generalized weakness 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 Ask your doctor or nurse how to use these medications. Specifically ask about these and similar medications: - clobetasol (TEMOVATE) 0.05 % ointment - clobetasol (TEMOVATE) 0.05 % cream START taking these medications Instructions Authorizing Provider chlorhexidine 0.12 % solution Commonly known as: PERIDEX by Mouth/Throat route 2 times daily Igor Gilliam docusate sodium 50 MG/5ML solution Commonly known as: COLACE Start taking on: 09/20/2017 10 mL by Enteral Tube route once daily Igor Gilliam pantoprazole 40 MG packet Commonly known as: PROTONIX Replaces: pantoprazole EC 40 MG tablet 1 packet by Enteral Tube route once daily Igor Gililam polyethylene glycol 3350 packet Commonly known as: MIRALAX 17 g by Enteral Tube route once daily as needed for Constipation Igor Gilliam CONTINUE taking these medications which have CHANGED Instructions Authorizing Provider albuterol (5 MG/ML) 0.5% nebulizer solution What changed: Another medication with the same name was removed. Continue taking this medication, and follow the directions you see here. Commonly known as: PROVENTIL;VENTOLIN 2.5 mg. Igor Gilliam * amiodarone 200 MG tablet What changed: Another medication with the same name was changed. Make sure you understand how and when to take each. Commonly known as: CORDARONE 200 mg BID. Igor Gilliam * amiodarone 200 MG tablet What changed: how to take this Commonly known as: CORDARONE 1 tablet by Enteral Tube route 2 times daily Igor Gilliam * aspirin 81 MG tablet What changed: Another medication with the same name was changed. Make sure you understand how and when to take each. Commonly known as: ASPIRIN Take 81 mg by mouth DAILY. * aspirin 81 MG chew tablet What changed: - how to take this - when to take this - reasons to take this Commonly known as: ASPIRIN 1 tablet by Enteral Tube route once daily Igor Gilliam * atorvastatin 20 MG tablet What changed: Another medication with the same name was added. Make sure you understand how and when to take each. Commonly known as: LIPITOR * atorvastatin 20 MG tablet What changed: Another medication with the same name was added. Make sure you understand how and when to take each. Commonly known as: LIPITOR Take 20 mg by mouth DAILY. * atorvastatin 20 MG tablet What changed: You were already taking a medication with the same name, and this prescription was added. Make sure you understand how and when to take each. Commonly known as: LIPITOR Start taking on: 09/20/2017 1 tablet by Enteral Tube route once daily Igor Gilliam * lidocaine 5 % patch What changed: Another medication with the same name was added. Make sure you understand how and when to take each. Commonly known as: LIDODERM Apply 2 patches to skin once daily * lidocaine 5 % patch What changed: Another medication with the same name was added. Make sure you understand how and when to take each. Commonly known as: LIDODERM Apply 2 patches to skin DAILY. Igor Gilliam * lidocaine 5 % patch What changed: You were already taking a medication with the same name, and this prescription was added. Make sure you understand how and when to take each. Commonly known as: LIDODERM Start taking on: 09/20/2017 Apply 1 patch to skin once daily Igor Gilliam * metFORMIN 500 MG tablet What changed: Another medication with the same name was changed. Make sure you understand how and when to take each. Commonly known as: GLUCOPHAGE * metFORMIN 500 MG tablet What changed: - how to take this - when to take this Commonly known as: GLUCOPHAGE 1 tablet by Enteral Tube route 2 times daily with morning and evening mexican food maker handIgor Gilliam * oxyCODONE (immediate release) 5 MG tablet What changed: Another medication with the same name was removed. Continue taking this medication, and follow the directions you see here. Commonly known as: ROXICODONE Take 5 mg by mouth every 4 hours as needed for Pain * oxyCODONE (immediate release) 5 MG tablet What changed: Another medication with the same name was removed. Continue taking this medication, and follow the directions you see here. Commonly known as: ROXICODONE 5 mg q4h PRN. Igor Gilliam * XARELTO 20 MG tablet What changed: Another medication with the same name was changed. Make sure you understand how and when to take each. Generic drug: rivaroxaban * rivaroxaban 20 MG tablet What changed: - how to take this - when to take this - reasons to take this Commonly known as: XARELTO 1 tablet by Enteral Tube route daily with breakfast Igor Gilliam * Notice: This list has 16 medication(s) that are the same as other medications prescribed for you.Read the directions carefully, and ask your doctor or other care provider to review them with you. CONTINUE taking these medications which have NOT CHANGED Instructions Authorizing Provider * clobetasol 0.05 % ointment Commonly known as: TEMOVATE ?nk?wn!?? Wilton Hdez * clobetasol 0.05 % cream Commonly known as: TEMOVATE * clobetasol 0.05 % ointment Commonly known as: TEMOVATE Apply to affected area BID PRN. * clobetasol 0.05 % cream Commonly known as: TEMOVATE ?nk?wn!?? Igor Gilliam senna-docusate 8.6-50 MG tablet Commonly known as: SENOKOT-S Take 1 tablet by mouth DAILY. * Notice: This list has 4 medication(s) that are the same as other medications prescribed for you. Read the directions carefully, and ask your doctor or other care provider to review them with you. STOP taking these medications amLODIPine 5 MG tablet Commonly known as: NORVASC betamethasone dipropionate augmented 0.05 % cream Commonly known as: DIPROLENE AF cetirizine 10 MG tablet Commonly known as: ZyrTEC cyanocobalamin 500 MCG tablet Commonly known as: VITAMIN B-12 DAILY VITES Tabs doxepin 50 MG capsule Commonly known as: SINEquan ergocalciferol 24822 UNITS capsule Commonly known as: DRISDOL ferrous sulfate 325 (65 FE) MG tablet furosemide 20 MG tablet Commonly known as: LASIX HUMALOG 100 UNIT/ML vial Generic drug: insulin lispro hydrOXYzine hcl 25 MG tablet Commonly known as: ATARAX insulin lispro 100 UNIT/ML vial Commonly known as: HumaLOG lactulose 10 GM/15ML solution Commonly known as: CHRONULAC lisinopril-hydroCHLOROthiazide 10-12.5 MG tablet Commonly known as: PRINZIDE; ZESTORETIC metoprolol succinate XL 24hr 100 MG tablet Commonly known as: TOPROL XL midodrine 10 MG tablet Commonly known as: PROAMATINE mupirocin 2 % ointment Commonly known as: BACTROBAN pantoprazole EC 40 MG tablet Commonly known as: PROTONIX Replaced by: pantoprazole 40 MG packet sodium chloride (Inhalant) 7 % nebulizer solution SPIRIVA HANDIHALER 18 MCG inhalation capsule Generic drug: tiotropium SYMBICORT 160-4.5 MCG/ACT inhaler Generic drug: budesonide-formoterol SYMBICORT 80-4.5 MCG/ACT inhaler Generic drug: budesonide-formoterol triamcinolone acetonide 0.1 % cream Commonly known as: KENALOG vitamin D (ergocalciferol) 14502 UNITS capsule Commonly known as: DRISDOL Activity: activity as tolerated Diet: tube feeding see instructions above Wound Care: low Rex score, aggressive stress ulcer prevention implemented. Signed: Igor Gilliam MD 09/19/2017 12:50 PM documented in this encounter Medications at Time of Discharge Medication Sig Dispensed Refills Start Date End Date albuterol (PROVENTIL;VENTOLIN) (5 MG/ML) 0.5% nebulizer solution 2.5 mg. 1 Box 11 09/04/2017 10/12/2023 amiodarone (CORDARONE) 200 MG tablet 1 tablet by Enteral Tube route 2 times daily 30 tablet 11 09/19/2017 02/15/2018 amiodarone (CORDARONE) 200 MG tablet 200 mg BID. 30 tablet 11 09/04/2017 02/02/2019 aspirin (ASPIRIN) 81 MG chew tablet 1 tablet by Enteral Tube route once daily 09/19/2017 02/15/2018 aspirin (ASPIRIN) 81 MG tablet Take 81 mg by mouth DAILY. 02/14/2017 02/15/2019 atorvastatin (LIPITOR) 20 MG tablet 1 tablet by Enteral Tube route once daily 09/20/2017 02/15/2018 atorvastatin (LIPITOR) 20 MG tablet Take 20 mg by mouth DAILY. 6 06/19/2017 08/17/2018 atorvastatin (LIPITOR) 20 MG tablet 6 01/20/2017 02/15/2018 chlorhexidine (PERIDEX) 0.12 % solution by Mouth/Throat route 2 times daily 09/19/2017 02/15/2018 clobetasol (TEMOVATE) 0.05 % cream 60 g 11 09/04/2017 02/15/2018 clobetasol (TEMOVATE) 0.05 % cream 0 05/19/2017 02/15/2018 clobetasol (TEMOVATE) 0.05 % ointment Apply to affected area BID PRN. 07/26/2017 02/15/2018 clobetasol (TEMOVATE) 0.05 % ointment 60 g 5 04/06/2017 02/15/2018 docusate sodium (COLACE) 50 MG/5ML solution 10 mL by Enteral Tube route once daily 09/20/2017 02/02/2019 lidocaine (LIDODERM) 5 % patch Apply 1 patch to skin once daily 09/20/2017 02/15/2018 lidocaine (LIDODERM) 5 % patch Apply 2 patches to skin once daily 02/15/2018 lidocaine (LIDODERM) 5 % patch Apply 2 patches to skin DAILY. 10 patch 11 09/05/2017 02/15/2019 metFORMIN (GLUCOPHAGE) 500 MG tablet 1 tablet by Enteral Tube route 2 times daily with morning and evening meal 3 09/19/2017 02/15/2018 metFORMIN (GLUCOPHAGE) 500 MG tablet 3 01/20/2017 02/15/2018 oxyCODONE, immediate release, (ROXICODONE) 5 MG tablet Take 5 mg by mouth every 4 hours as needed for Pain 08/17/2018 oxyCODONE, immediate release, (ROXICODONE) 5 MG tablet 5 mg q4h PRN. 30 tablet 0 09/04/2017 02/15/2018 pantoprazole (PROTONIX) 40 MG packet 1 packet by Enteral Tube route once daily 30 Each 5 09/19/2017 02/02/2019 polyethylene glycol 3350 (MIRALAX) packet 17 g by Enteral Tube route once daily as needed for Constipation 09/19/2017 02/02/2019 rivaroxaban (XARELTO) 20 MG tablet 1 tablet by Enteral Tube route daily with breakfast 3 09/19/2017 02/15/2018 rivaroxaban (XARELTO) 20 MG tablet 6 01/20/2017 02/15/2018 senna-docusate (SENOKOT-S) 8.6-50 MG tablet Take 1 tablet by mouth DAILY. 07/28/2017 02/02/2019 documented as of this encounter Progress Notes * Christina Mendieta RN - 09/19/2017 11:52 AM CDT Facility Transfer Note Level of Care:LTAC Facility Name: [facility] unit coordinator [place] Made Aware of Special Needs (if applicable): Facility aware of trach/vent and Tube and tube feeding needs RN Call Report to: [phone] RN Fax D/C Orders to: [phone] Transportation (company and number): [facility] [phone] trip number [id number] Certificate of Medical Necessity rationale: Trach and Vent Date/time of transfer: 09/19/2017 1300 Accepting MD: Dr. Espino [phone] Completed and Signed [id number] (if applicable) N/A Family/Other Notified of Transfer (name/phone): [facility] at [phone] Authorization Skilled Care: N/A Authorization for Transportation: trip ticket [id number] Comments: [facility] [place]. Patient and family agreeable with discharge plan. Christina Mendieta RN * Christina Mendieta RN - 09/19/2017 11:10 AM CDT Patient to be discharged to [facility] the [facility] Location. Medical team aware and given report number for report.([phone]) Nursing given number for report [phone]. [facility] set up for transport at 1300. Family and patient aware of transfer . Christina Mendieta RN 09/19/2017 11:13 AM * Michael Callahan RCP - 09/19/2017 3:42 AM CDT Problem: Mechanical Ventilation Goal: Tracheostomy will be managed safely Outcome: Ongoing Trach will be secured via trach gomez device to keep airway in place. Size 8 Shiley trach secured via trach gomez. Vent circuit supported to prevent pulling on trach. * Noa Reyes RN - 09/18/2017 6:00 PM CDT Encouraged patient to sit up in annelise-chair this morning. Patient shook his head no, affirmed being tired and wanting to rest. Agiain mid-shift, patient refused to sit up in nena-chair. Patient refusedto sit in annelise-chair this evening as well. Patient's voiced concern that patient was not getting up, and education was provided to the patient regarding the benefits of getting to the annelise-chairon pulmonary function and blood flow. However, patient continued to decline. Patient remained in bed this shift, turning with the TAP system in place. * Reji Kraft DO - 09/18/2017 11:53 AM CDT MEDICAL INTENSIVE CARE UNIT DAILY PROGRESS NOTE 09/18/17 ?? Admit date: 09/06/2017 ?? Subjective: ?? Briefly, José Miguel Keys was admitted to the ICU for acute hypoxic respiratory failure. He has had multiple ICU admissions. He was found to have significant mucous plugging. Currently being treated with ceftaroline and flagyl for MRSA discitis. He was initially intubated in the ED for hypoxia. He was found to have significant mucous plugging on bronchoscopy. He had a left sided pleural drain placed in left fluid effusion with alteplase administered through the catheter to assist with resolution of loculations. ?? Events in the past 24 hours: Began to hypoventilate late afternoon and then Placed back on ACMV. ?? ICU Timeline: 09/06 admitted to ICU intubated and on low dose vasopressors 09/07 PSV trial, CT chest to eval L pleural effusion, extubation 09/08left pigtail drain placed. Tried tPa + dornase for 3 doses. Minimal response. 09/09 intubated for hypoxia. Bronchoscopy performed. Thick clear secretions L > R suctioned clear. 09/10: Sat out in the chair for nearly 5 hours. NO significant changes of hypoxia events. 09/11: patient tolerating vent well, plan for possible PERC trach tomorrow 09/12: planned for bedside perc trach however, bedside ultrasound revealed midline vessels prompting ENT consult for OR trach. 09/13: trach by ENT 09/14: tolerating the vent well with trach in place ?? Objective: ?? Current vital signs Patient Vitals for the past 6 hrs: Temp Pulse Resp BP 09/18/17 0800 98 ??F (36.7 ??C) 89 20 - 09/18/17 0700 - 90 17 104/67 09/18/17 0611 - 87 18 - 09/18/17 0600 - 85 15 100/61 Input/Output Intake/Output Summary (Last 24 hours) at 09/18/17 1153 Last data filed at 09/18/17 0645 Gross per 24 hour Intake 1965 ml Output 1025 ml Net 940 ml ?? Physical Exam ?? General: intubated, awake, follows commands - on ACMV - switched to PSV at the bedside ?? HEENT: PERRL, NC/AT ?? Neck: supple, No LAD, trach in place ?? Pulm: coarse/diminshed breath sounds on the left ?? Heart: RRR ?? Abdomen: + BS, soft, NT, ND. ?? Extremities: No edema. Good distal pulses. ?? Neuro: GCS 15 AAOx3, no focal deficits ? Data Review: ?? CBC: Recent Labs Component Name 09/18/17 0003 09/17/173 09/16/17 0413 WBC 8.7 8.1 8.5 HGB 8.8* 8.7* 8.1* MCV 95.8 96.1 96.2 PLT 199 182 172 BMP: Recent Labs Component Name 09/18/17 0003 09/17/17 1918 09/17/17 1204 09/17/17 0433 09/16/17 0413 09/06/17 1621 09/06/17 1211 07/29/17 1130 NA 140 - - 139 - 138 - - - - - K - - - - - - - 4.2 3.8 - 3.3* CL 95* - - 96* - 96* - - - - - CO2 35* - - 32* - 32* - - - - - BUN 25 - - 18 - - - - - CREATININE 0.6 - - 0.6 - 0.6 - - - - - GLU 135* 157* 164* 120* - 92 - - - - - - = values in this interval not displayed. Recent Labs Component Name 09/18/17 0003 09/17/17 0433 09/16/17 0413 CALCIUM 9.0 8.8 8.8 PHOS 2.8 3.2 2.6 LFT: Recent Labs Component Name 09/06/17 1157 09/04/17 0447 09/03/17 0431 07/15/17 0504 PROT 6.2 5.3* 5.4* - 6.1 ALB 1.8* 1.5* 1.5* - 2.4* ALKPHOS 204* 190* 212* - 157* AST 21 27 26 - 34 ALT 10 12 12 - 25 TBILI 0.3 0.3 0.3 - 1.8* GGT - - - - 66* - = values in this interval not displayed. Coagulation: Recent Labs Component Name 09/15/17 0441 09/11/17 0437 09/09/17 0422 PT 15.1* 14.1 15.8* INR 1.2 1.1 1.3 Lab results smartLinks are not currently available Cardiac markers: Recent Labs Component Name 09/06/17 1157 08/26/17 1420 TROPONINI 0.027 <0.010 ABGs: Recent Labs Component Name 09/10/17 0557 PO2ART 80 [id number] 44 [id number] 30.0* ?? Radiology: ?? CXR this morning with improvement in LLL opacity compared with previous CXR ?? Assessment: ?? 1. Acute hypoxic respiratory failure with mucous plugging 2. 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 Left pleural Effusion 4. Atrial Fibrillation 5. Debility ?? Plan: ?? Neuro/Psych: - analgesia for chronic lumbago - stable on oxycodone 5mg PO q4 PRN and fentanyl with lidoderm patches PRN for breakthrough ?? Cardiovascular: - on ASA 81mg and Lipitor 20mg PO qD Atrial Fibrillation - amionadrone BID - hold off on further diuresis for now ?? Pulmonary: Acute Hypoxic respiratory failure: secondary to recurrent mucous plugging. s/p trach per ENT on 09/13 - present ventillator settings PSV 12/8 yielding on fiO2 40% yielding an exhaled Vt 400 cc and an SpO2 95% - plan for trach collar trial if able - repeat CXR - aggressive Chest PT with Bed and IPv q 4 hours, mobilize - albuterol nebs q4 s/p Tracheostomy (09/13) - done by ENT, plan for trach change on POD 5-7 Left pleural effusion - s/p L pleural 14Fr catheter removal - no Pneumothorax on CXR - Thoracic surgery consult: no surgical management for effusion GI/Nutrition: - continue TF - Bowel regimen Renal/Electrolytes/Acid-Base: - replace lytes as needed ?? Infectious Disease: - completed abx for MRSA discitis - macias culture if febrile - transudative pleural fluid ?? Hematology/Oncology: Normocytic Anemia ?? Endocrine: - SS insulin - continue synthroid ?? Musculoskeletal/Skin: PT/OT ?? GI prophylaxis:pepcid DVT prophylaxis:SCDs, lovenox Lines: PIV, d/c umaña Code Status: full Disposition: plan for LTAC placement - patient has been accepted at [facility] Associated attestation - Poncho Galarza MD - 09/18/2017 2:45 PM CDT I have seen and examined/evaluated the patient. I agree with the findings and the plan of care as documented in the resident's note, except as per below. Significant Events During Last 24 Hours: Tired out, went back on assist control Review of Systems: Positive for shortness of breath Pertinent Medications: Current Facility-Administered Medications Medication ??? enoxaparin (LOVENOX) injection 40 mg ??? oxyCODONE (immediate release) (ROXICODONE) tablet 5 mg ??? fentaNYL (PF) (SUBLIMAZE) injection 50 mcg ??? senna (SENOKOT) tablet 8.6 mg ??? polyethylene glycol 3350 (MIRALAX) packet 17 g ??? docusate sodium (COLACE) solution 100 mg ??? lidocaine (LIDODERM) 5 % patch 1 patch ??? albuterol (PROVENTIL;VENTOLIN) (5 MG/ML) 0.5% nebulizer solution 2.5 mg ??? amiodarone (CORDARONE) tablet 200 mg ??? aspirin (ASPIRIN) chew tablet 81 mg ??? chlorhexidine (PERIDEX) 0.12 % oral solution ??? famotidine (PEPCID) injection 20 mg Or ??? famotidine (PEPCID) tablet 20 mg ??? glucose (Diabetic Use) oral gel 15-30 g ??? glucagon (GLUCAGEN) injection 1 mg ??? insulin regular human (humuLIN R; novoLIN R) 100 UNIT/ML injection 0-6 Units ??? 0.9% NaCl injection 10 mL ??? fentaNYL (SUBLIMAZE) bolus from infusion bag 50 mcg ??? dextrose IV 12.5-25 g ??? atorvastatin (LIPITOR) tablet 20 mg Physical Exam: Patient Vitals for the past 24 hrs: Temp Pulse Resp BP 09/18/17 1300 - 91 16 119/83 09/18/17 1200 98.1 ??F (36.7 ??C) 91 16 106/62 09/18/17 1100 - 96 20 120/80 09/18/17 1000 - 87 15 89/59 09/18/17 0900 - 91 19 103/68 09/18/17 0800 98 ??F (36.7 ??C) 88 15 101/57 09/18/17 0700 - 90 17 104/67 09/18/17 0611 - 87 18 - 09/18/17 0600 - 85 15 100/61 09/18/17 0500 - 86 20 106/68 09/18/17 0400 - 83 17 102/61 09/18/17 0300 - 86 15 102/69 09/18/17 0200 - 84 16 107/71 09/18/17 0143 - 95 23 - 09/18/17 0100 - 92 20 137/84 09/18/17 0000 - 78 16 111/66 09/17/17 2300 - 83 19 97/59 09/17/17 2200 - 84 16 102/63 09/17/17 2100 - 86 20 119/69 09/17/17 2036 - 87 20 - 09/17/17 2000 98.9 ??F (37.2 ??C) 82 17 105/55 09/17/17 1953 - - 18 - 09/17/17 1900 - 88 17 113/66 09/17/17 1800 - 90 23 130/74 09/17/17 1700 - 83 16 110/75 09/17/17 1600 98.3 ??F (36.8 ??C) 85 16 104/66 09/17/17 1500 - 85 18 107/60 General: acute on chronic ill HEENT: trach Lungs: decreased/course breath sounds on left Cardiac: irregular Abdomen: soft Ext: 1 + edema Neuro: a / ox 3 Psych: friendly Pertinent Lab Data: Wbc 8.7, plt 199 co 2 35 Pertinent Imaging: Repeat CXR from today pending Assessment and Plan: 1. Acute on chronic hypoxemic respiratory failure - due to excessive secretions, and deconditioing - s/p trach - continual to try and wean - left sided secretions remains a problem - continue chest PT and IPV - trach change as per ENT - continue ventilator support at present time, trial PSV this afternoon for an hour - repeat CXR today - if needs diuresis would use diamox given his high serum bicarb ?? 2. Critical illness myopathy and neuropathy - continue aggressive PT and OT - will need extensive rehab ?? See housestaff note for remainder of plan ?? Prognosis: Remains guarded. Still at high risk this admission for complications given his comorbid conditions. ? Critical Care Time: 35 Minutes, exclusive of time spent during procedures. Poncho Galarza MD, [facility] Pulmonary/Critical Care Medicine Please call for any questions. * Cleo Goodwin MD - 09/18/2017 7:44 AM CDT Otolaryngology/Head and Neck Surgery Resident Progress Note 09/18/2017 Admit Date: 09/06/2017 7:44 AM Hospital day: LOS: 12 days Subjective: No acute events overnight. Objective: Temp Min: 96.3 ??F (35.7 ??C) Max: 99.1 ??F (37.3 ??C), Pulse Min: 73 Max: 120, Resp Min: 5 Max: 39, BP Min: 52/38 Max: 146/93 I/O last 3 completed shifts: In: 3454 Out: 1775 [Urine:1775] Physical Examination Constitutional: Not in distress CV: RRR Respiration: on vent Neck: 8 cuffed shiley up and in place, incision C/D/I. No erythema or drainage Extremities: Moving all extremities spontaneously Labs (Last 72 hours): Recent Labs Component Name 09/18/17 0003 WBC 8.7 RBC 3.09* HGB 8.8* HCT 29.6* PLT 199 Recent Labs Component Name 09/18/17 0003 09/06/17 1621 GLU 135* - - NA 140 - - K - - 4.2 CL 95* - - CO2 35* - - BUN 25 - - CREATININE 0.6 - - CALCIUM 9.0 - - - = values in this interval not displayed. Assessment: José Miguel Keys is a 66 y.o. male with acute hypoxic respiratory failure. POD#5 s/p tracheostomy Plan: - 8.[address], sutures cut at bedside this morning - okay for primary team to manage trach now, may change trach and trach ties - routine trach care, suction - keep head of bed elevated - ENT will sign off, but feel free to page with questions/concerns Cleo Goodwin MD 09/18/2017 7:44 AM * Malaika Gonzalez RN - 09/18/2017 4:16 AM CDT Problem: Mechanical Ventilation Goal: Patent airway Outcome: Ongoing Discussed vent settings during day and during night time with patient and spouse at bedside. Questions answered regarding modes of ventilation. * Reji Kraft DO - 09/17/2017 11:10 AM CDT MEDICAL INTENSIVE CARE UNIT DAILY PROGRESS NOTE 09/17/17 ?? Admit date: 09/06/2017 ?? Subjective: ?? Briefly, José Miguel Keys was admitted to the ICU for acute hypoxic respiratory failure. He has had multiple ICU admissions. He was found to have significant mucous plugging. Currently being treated with ceftaroline and flagyl for MRSA discitis. He was initially intubated in the ED for hypoxia. He was found to have significant mucous plugging on bronchoscopy. He had a left sided pleural drain placed in left fluid effusion with alteplase administered through the catheter to assist with resolution of loculations. ?? Events in the past 24 hours: Weaned briefly from PSV to trach collar and did not tolerate trach collar for long due to secretions. Placed back on ACMV overnight ?? ICU Timeline: 09/06 admitted to ICU intubated and on low dose vasopressors 09/07 PSV trial, CT chest to eval L pleural effusion, extubation 09/08left pigtail drain placed. Tried tPa + dornase for 3 doses. Minimal response. 09/09 intubated for hypoxia. Bronchoscopy performed. Thick clear secretions L > R suctioned clear. 09/10: Sat out in the chair for nearly 5 hours. NO significant changes of hypoxia events. 09/11: patient tolerating vent well, plan for possible PERC trach tomorrow 09/12: planned for bedside perc trach however, bedside ultrasound revealed midline vessels prompting ENT consult for OR trach. 09/13: trach by ENT 09/14: tolerating the vent well with trach in place ?? Objective: ?? Current vital signs Patient Vitals for the past 6 hrs: Temp Pulse Resp BP BP Method 09/17/17 1000 - 84 14 102/58 Automatic 09/17/17 0900 - 90 21 113/59 - 09/17/17 0800 97.8 ??F (36.6 ??C) 86 16 124/71 Automatic 09/17/17 0700 - 86 16 117/78 - 09/17/17 0600 - 84 15 104/63 - Input/Output Intake/Output Summary (Last 24 hours) at 09/17/17 1110 Last data filed at 09/17/17 0900 Gross per 24 hour Intake 1079 ml Output 800 ml Net 279 ml ?? Physical Exam ?? General: intubated, awake, follows commands - on ACMV - switched to PSV at the bedside ?? HEENT: PERRL, NC/AT ?? Neck: supple, No LAD, trach in place ?? Chest: CTA B/L. Coarse breath sounds bilaterally with diminished breath sounds in left lung herrera ?? Heart: tachycardia, Normal S1, S2. No murmur, gallops and/or rubs. ?? Abdomen: + BS, soft, NT, ND. ?? Extremities: No edema. Good distal pulses. ?? Neuro: GCS 15 AAOx3, non-focal ? Data Review: ?? CBC: Recent Labs Component Name 09/17/17 0433 09/16/17 0413 09/15/17 0441 WBC 8.1 8.5 8.6 HGB 8.7* 8.1* 8.2* MCV 96.1 96.2 95.5 PLT 182 172 186 BMP: Recent Labs Component Name 09/17/17 0433 09/16/17 2318 09/16/17 1841 09/16/17 0413 09/15/17 0441 09/06/17 1621 09/06/17 1211 07/29/17 1130 NA 139 - - - 138 - 138 - - - - - K - - - - - - - - 4.2 3.8 - 3.3* CL 96* - - - 96* - 95* - - - - - CO2 32* - - - 32* - 33* - - - - - BUN 19 - - - 18 - - - - - - CREATININE 0.6 - - - 0.6 - 0.6 - - - - - GLU 120* 111 98 - 92 - 103 - - - - - - = values in this interval not displayed. Recent Labs Component Name 09/17/17 04309/16/1741209/15/1744009/07/17 0428 CALCIUM 8.8 8.8 8.8 - 8.4 PHOS 3.2 2.6 - - 2.9 - = values in this interval not displayed. LFT: Recent Labs Component Name 09/06/17 11509/04/1744609/03/17 04307/15/17 0504 PROT 6.2 5.3* 5.4* - 6.1 ALB 1.8* 1.5* 1.5* - 2.4* ALKPHOS 204* 190* 212* - 157* AST 21 27 26 - 34 ALT 10 12 12 - 25 TBILI 0.3 0.3 0.3 - 1.8* GGT - - - - 66* - = values in this interval not displayed. Coagulation: Recent Labs Component Name 09/15/1744009/11/1743609/09/17 0422 PT 15.1* 14.1 15.8* INR 1.2 1.1 1.3 Lab results smartLinks are not currently available Cardiac markers: Recent Labs Component Name 09/06/17 11508/26/17 1420 TROPONINI 0.027 <0.010 ABGs: Recent Labs Component Name 09/10/17 0557 PO2ART 80 [id number] 44 [id number] 30.0* ?? Radiology: ?? CXR this morning with improvement in LLL opacity compared with previous CXR ?? Assessment: ?? 1. Acute hypoxic respiratory failure with mucous plugging 2. 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 Left pleural Effusion 4. Atrial Fibrillation 5. Debility ?? Plan: ?? Neuro/Psych: - analgesia for chronic lumbago - oxycodone 5mg PO q4 PRN and fentanyl with lidoderm patches PRN for breakthrough ?? Cardiovascular: - on ASA 81mg and Lipitor 20mg PO qD Atrial Fibrillation - amionadrone BID - hold off on further diuresis for tomorrow ?? Pulmonary: Acute Hypoxic respiratory failure: secondary to recurrent mucous plugging. s/p trach per ENT on 09/13 - present ventillator settings PSV 12/8 yielding on fiO2 40% yielding an exhaled Vt 400 cc and an SpO2 95% - plan for trach collar trial today - aggressive Chest PT with Bed and IPv q 4 hours - albuterol nebs q4 s/p Tracheostomy (09/13) - done by ENT, plan for trach change on POD 5-7 Left pleural effusion - s/p L pleural 14Fr catheter removal - no Pneumothorax on CXR - Thoracic surgery consult: no surgical management for effusion GI/Nutrition: - PEG on 09/15, plan to restart tube feeds after seen by GI fellow Renal/Electrolytes/Acid-Base: - replace lytes as needed ?? Infectious Disease: - completed abx for MRSA discitis - macias culture if febrile - transudative pleural fluid ?? Hematology/Oncology: Normocytic Anemia ?? Endocrine: - SS insulin - continue synthroid ?? Musculoskeletal/Skin: PT/OT ?? GI prophylaxis:pepcid DVT prophylaxis:SCDs, lovenox Lines: PIV, d/c umaña Diet: resume tube feeds after cleared by GI fellow Code Status: full Disposition: plan for LTAC placement - patient has been accepted at [facility] Associated attestation - Poncho Galarza MD - 09/17/2017 11:27 AM CDT I have seen and examined/evaluated the patient. I agree with the findings and the plan of care as documented in the resident's note, except as per below. Significant Events During Last 24 Hours: Did not tolerate trach collar due to secretions and placed back on vent (assist control) overnight Review of Systems: Positive for shortness of breath Pertinent Medications: Current Facility-Administered Medications Medication ??? enoxaparin (LOVENOX) injection 40 mg ??? oxyCODONE (immediate release) (ROXICODONE) tablet 5 mg ??? fentaNYL (PF) (SUBLIMAZE) injection 50 mcg ??? senna (SENOKOT) tablet 8.6 mg ??? polyethylene glycol 3350 (MIRALAX) packet 17 g ??? docusate sodium (COLACE) solution 100 mg ??? lidocaine (LIDODERM) 5 % patch 1 patch ??? albuterol (PROVENTIL;VENTOLIN) (5 MG/ML) 0.5% nebulizer solution 2.5 mg ??? amiodarone (CORDARONE) tablet 200 mg ??? aspirin (ASPIRIN) chew tablet 81 mg ??? chlorhexidine (PERIDEX) 0.12 % oral solution ??? famotidine (PEPCID) injection 20 mg Or ??? famotidine (PEPCID) tablet 20 mg ??? glucose (Diabetic Use) oral gel 15-30 g ??? glucagon (GLUCAGEN) injection 1 mg ??? insulin regular human (humuLIN R; novoLIN R) 100 UNIT/ML injection 0-6 Units ??? 0.9% NaCl injection 10 mL ??? fentaNYL (SUBLIMAZE) bolus from infusion bag 50 mcg ??? dextrose IV 12.5-25 g ??? atorvastatin (LIPITOR) tablet 20 mg Physical Exam: Patient Vitals for the past 24 hrs: Temp Pulse Resp BP 09/17/17 1100 - 89 18 109/72 09/17/17 1000 - 84 14 102/58 09/17/17 0900 - 90 21 113/59 09/17/17 0800 97.8 ??F (36.6 ??C) 86 16 124/71 09/17/17 0700 - 86 16 117/78 09/17/17 0600 - 84 15 104/63 09/17/17 0506 - 87 19 - 09/17/17 0500 98.7 ??F (37.1 ??C) 82 16 108/61 09/17/17 0400 - 82 16 113/63 09/17/17 0300 - 85 18 117/59 09/17/17 0204 - 87 19 - 09/17/17 0200 - 84 18 109/64 09/17/17 0100 98.7 ??F (37.1 ??C) 84 20 98/57 09/17/17 0000 - 90 17 115/65 09/16/170 - 85 18 92/66 09/16/172199 - 84 14 116/78 09/16/172120 - - 16 - 09/16/172117 - 80 16 - 09/16/172007 98.4 ??F (36.9 ??C) 82 14 95/58 09/16/171999 - 15 (!) 80/51 09/16/17 1900 - 90 17 107/66 09/16/17 1800 - 91 17 103/64 09/16/17 1600 98.7 ??F (37.1 ??C) 90 23 92/58 09/16/17 1500 - 88 18 92/60 09/16/17 1415 - 87 18 - 09/16/17 1400 - 90 17 88/64 09/16/17 1345 - 89 18 - 09/16/17 1315 - 93 23 - 09/16/17 1300 - 94 21 91/65 09/16/17 1245 - 94 19 - 09/16/17 1230 - 94 20 99/71 09/16/17 1215 - 90 16 - 09/16/17 1200 98.4 ??F (36.9 ??C) 91 16 104/66 09/16/17 1145 - 89 21 - 09/16/17 1130 - 93 20 103/63 General: chronic ill appearing HEENT: trached Lungs: decreased on left Cardiac: irregular Abdomen: soft Ext: no c/c/e Neuro: a / ox 3 Psych: friendly Pertinent Lab Data: Wbc 8, Cr 0.6 Pertinent Imaging: CXR 09/16/17: FINDINGS/IMPRESSION: ?? The tracheostomy tube terminates in the superior thoracic trachea. The weighted tip feeding tube terminates in the gastric fundus just distal to the gastroesophageal junction. The left pigtail thoracostomy tube has been removed in the interval. ?? Diffuse patchy interstitial and airspace opacities representing pulmonary edema and/or multifocal pneumonia have not significantly changed in the interval. There is an interval decrease in the, now small, left pleural effusion with associated atelectasis/airspace disease. The small right pleural effusion and associated atelectasis/airspace disease has not significantly changed. The cardiomediastinal silhouette is normal. ?? Assessment and Plan: 1. Acute on chronic hypoxemic respiratory failure - due to excessive secretions, and deconditioing - s/p trach - continual to try and wean - left sided secretions remains a problem - continue chest PT and IPV - trach change as per ENT - continue ventilator support at present time, trial PSV this afternoon for an hour 2. Critical illness myopathy and neuropathy - continue aggressive PT and OT - will need extensive rehab See housestaff note for remainder of plan Prognosis: Remains guarded. Still at high risk this admission for complications given his comorbid conditions. Critical Care Time: 31 Minutes, exclusive of time spent during procedures. Poncho Galarza MD, [facility] Pulmonary/Critical Care Medicine Please call for any questions. * Bandar Davis MD - 09/17/2017 8:22 AM CDT Otolaryngology/Head and Neck Surgery Resident Progress Note 09/17/2017 Admit Date: 09/06/2017 8:22 AM Hospital day: LOS: 11 days Subjective: No acute events overnight. On vent this AM. Objective: Temp Min: 96.3 ??F (35.7 ??C) Max: 99.1 ??F (37.3 ??C), Pulse Min: 73 Max: 120, Resp Min: 5 Max: 39, BP Min: 52/38 Max: 146/93 I/O last 3 completed shifts: In: 1104 Out: 1035 [Urine:1035] Physical Examination Constitutional: Not in distress CV: RRR Respiration: on vent Neck: 8 cuffed shiley up and in place, incision C/D/I. No erythema or drainage Extremities: Moving all extremities spontaneously Labs (Last 72 hours): Recent Labs Component Name 09/17/17 0433 WBC 8.1 RBC 3.04* HGB 8.7* HCT 29.2* PLT 182 Recent Labs Component Name 09/17/17 0433 09/06/17 1621 GLU 120* - - NA 139 - - K - - 4.2 CL 96* - - CO2 32* - - BUN 19 - - CREATININE 0.6 - - CALCIUM 8.8 - - - = values in this interval not displayed. Assessment: José Miguel Keys is a 66 y.o. male with acute hypoxic respiratory failure. POD#4 s/p tracheostomy Plan: - routine trach care, suction - keep head of bed elevated - only ENT to change trach, first trach change on POD5, 09/18 - page ENT with questions/concerns Bandar Davis MD 09/17/2017 8:22 AM * Vibha Fang RCP - 09/16/2017 5:43 PM CDT Problem: Mechanical Ventilation Pt will be monitored for secretions and will be suctioned as needed to maintain patent airway. Goal: Tracheostomy tube size 8??will be managed safely Outcome: Trach collar trial lasted for 1 hour/30 mins with oxygen saturation maintain 95-98%, respiratory rate 14-18. Tracheostomy??will be secured device to maintain proper position.??Thick (small) bloody secretions with a gag. Must remain tracheostomy cuff inflated at all times. ? * Vira Wilson MD - 09/16/2017 1:27 PM CDT Gastroenterology Progress Note DATE: 09/16/2017 INTERVAL HISTORY: Reports medium pain around the Gtube site. When asked if area feels sore, pt nodded yes. Denies n/v. Tolerated flushes of water and meds through tube yesterday. ROS: 10 point ROS negative except as listed above. MEDICATIONS: enoxaparin 40 mg Subcutaneous QDAY furosemide 20 mg Intravenous QDAY *Hold/Avoid Medication Other 0800 and 1999 senna 8.6 mg Enteral Tube BID docusate sodium 100 mg Enteral Tube QDAY lidocaine 1 patch Transdermal QDAY albuterol 2.5 mg Inhalation q4h amiodarone 200 mg Oral BID aspirin 81 mg Oral QDAY chlorhexidine Mouth/Throat BID famotidine 20 mg Intravenous BID Or famotidine 20 mg Oral BID insulin regular human 0-6 Units Subcutaneous q6h atorvastatin 20 mg Oral QDAY PHYSICAL EXAM: BP 109/63 Pulse 85 Temp 98.6 ??F (37 ??C) Resp 15 Ht 1.778 m (5' 10 ) Wt 90.6 kg (199 lb 11.8 oz) SpO2 93% BMI 28.66 kg/m2 General: Laying in bed, no distress HEENT: EOMI. Anicteric sclera, s/p trach Lungs: On the ventilator, clear to auscultation bilaterally, no w/r/r Heart: Regular rate and rhythm, normal s1-s2 Abdomen: Soft, non-tender, non-distended, bowel sounds normal, no RT/guarding, Gtube freely rotates, no gross erythema/purulence at site of insertion, measures 6 cm at the skin. Skin: No obvious rashes or lesions, no jaundice Neuro: Nods/shakes head to questions, following commands LABS: Recent Labs Component Name 09/16/1741209/15/1744009/14/17 0521 WBC 8.5 8.6 10.1 HGB 8.1* 8.2* 8.7* MCV 96.2 95.5 94.7 PLT 172 186 224 Recent Labs Component Name 09/16/17 0413 09/15/17 0441 09/14/17 0521 09/07/17 0428 09/04/17 0447 CALCIUM 8.8 8.8 8.7 - 8.4 - 8.4 PHOS 2.6 - - - 2.9 - 2.9 - = values in this interval not displayed. Recent Labs Component Name 09/16/17 1222 09/16/17 0556 09/16/17 0413 09/15/17 0441 09/14/17 0521 09/06/17 1621 09/06/17 1211 07/29/17 1130 NA - - 138 - 138 - 138 - - - - - K - - - - - - - - 4.2 3.8 - 3.3* BUN - - - - - - - CREATININE - - 0.6 - 0.6 - 0.6 - - - - - GLU 91 79 92 - 103 - 136* - - - - - - = values in this interval not displayed. Recent Labs Component Name 09/15/17 0441 09/11/17 0437 09/09/17 0422 09/06/17 1157 09/04/17 0447 09/03/17 0431 PROT - - - - 6.2 5.3* 5.4* ALB - - - - 1.8* 1.5* 1.5* TBILI - - - - 0.3 0.3 0.3 ALKPHOS - - - - 204* 190* 212* AST - - - - 21 27 26 ALT - - - - 10 12 12 INR 1.2 1.1 1.3 - - - - - = values in this interval not displayed. EGD with PEG placement 09/15/17: - Normal EGD - An externally removable PEG placement was successfully completed. - No specimens collected. IMPRESSION: Mr. Keys is a 66 year old M with hx significant for recent MRSA discitis and pleural effusion who presented with resp failure with difficulty weaning ventilator, now s/p trach. GI consulted for PEG placement. Placed without complications on 09/15/17. # Feeding difficulties # Acute hypoxic hypercapnic resp failure: s/p trach # Hx MRSA infections: Currently on ceftaroline + flagyl # Leukocytosis # Normocytic anemia # Afib with RVR on xarelto as outpt, now on hold # Image findings suggestive of cirrhosis: ATs wnl, INR 1.1 recently, plts 224. Potentially 2/2 NALFD/RAYGOZA. No significant ETOH use reported. Hepatitis panel negative. # Documented hx of UC: No documented scopes on file for review. No CT findings to suggest active colitis. Not on meds for this at this time. RECOMMENDATIONS: # May start using PEG tube with tube feeds per nutrition recommendations # PEG tube care: - Keep tube clean and dry and monitor for evidence of bleeding/infection - Use mild soap and water (NOT hydrogen peroxide) and pat dry - Place drain sponge / dressing over (NOT under) external bumper. - Abdominal binder should remain over tube at all times # Tube needs to stay in for at least 6 weeks, after which - can be pulled out if not needed; or - replaced if continued requirement # If pulled out before 6 weeks, should not attempt to replace blindly: - Please call GI - Will likely need IV antibiotics - May need surgical repair # Will arrange for followup in hepatology clinic to address his chronic liver disease Appreciate the opportunity to be involved in the care of this patient. GI will sign off. Please do not hesitate to contact us with and further questions or concerns. Vira Wilson MD Gastroenterology Fellow Vira Wilson MD Gastroenterology Fellow [phone] * Jaclyn Monsivais RCP - 09/16/2017 12:08 PM CDT Patient seen for bedside mobility together with PT,OT,RT Start time:1022 End time: 1100 Session duration: 32 Airway and position:trached and vented Patient's vent/O2 settings during session: VENT CPAP/PSV PEEP 8, PSV 12, FIO2 30% Vital signs continuously monitored during session and were as follows. Before: Heart rate - 92 Respiratory rate- 18 SpO2- 98 During: - 94 16 100 After: 92 18 96 Patient activity:sitting on EOB, moved to nuero chair Patient tolerated session well, suctioned thin clear Post treatment patient resting in chair * Christina Mendieta RN - 09/16/2017 10:55 AM CDT Case management updated by medical team. Patient maybe discharged to LTAC on Tuesday. ENT to change trach on POD 5 which is 4/15. Case management updated [facility] facility [facility] unit coordinator ley of potential discharge date. Will continue to keep facility updated. Christina Mendieta RN 09/16/2017 10:58 AM [phone] * Nicolas Fuentes OT - 09/16/2017 10:23 AM CDT [facility] Occupational Therapy Progress Note Patient: José Miguel Keys Med Record Number: [id number] Date of : 1950 Age: 66 y.o. Co-tx with PT and RT Recommendation: Recommendation: Patient will benefit from inpatient multidisciplinary therapies Treatment Interventions: ADL retraining;UE strengthening/ROM;Endurance training;Functional transfertraining Need Tech Assist: Yes Plan: OT Frequency: 5 Times/Week Precautions: Weight Bearing Status: (WBAT) Subjective: Pt nodded head yes to therapy. At start of therapy session, patient found in bed and with no alarm. Pain: Patient has 6 out of 10 pain in abdomen. Nurse notified. Activities of Daily Living Feeding:not tested Grooming/Bathing: Stand By Assist to wash face while seated EOB. Pt minimal assist to comb hair while seated EOB. Upper Extremity Dressing: Maximal assist to don abdominal binder while supine in bed. Lower Extremity Dressing: not tested Toileting/Transfers: not tested 2/2 catheter Mobility: Assist device: none Supine to/from Sit:Maximal assist of 2 Sit to/from Stand: not tested Bed to/from Chair: Maximal assist of 3 to laterally slide from bed to neuro chair Functional Mobility: not tested, pt not ambulatory this date Splint Issued/Checked: none Splint Check Completed: N/A Balance: Static Sitting: poor Dynamic Sitting: poor Static Standing: not tested Dynamic Standing: not tested Activity Tolerance: Patient's activity tolerance: fair Pt tolerated sitting EOB bout 15 minutes. Pt tolerated BUE AROM ex's bicep flexion/extension, shoulder flexion/extension, and scapular protraction/retraction x 5 reps x 1 set while seated EOB. Pt participated in dynamic sitting balance activity x 5 minutes. RT present throughout session to manage ventilator settings. Cognitive/Perceptual: Pt alert and oriented through conversation. Pt follows 1 step commands 100% of session. Pt demonstrates fair insight into deficits and safety awareness. Treatment/Therapeutic Exercise: Treatment session this date focused on ADL training Functional transfer training Endurance training Bed mobility Safety awareness Patient/Family Teaching: Exercise, Mobility and Self care Equipment Issued: none Update Treatment Plan/Goals : continue with POC Short Term Goals: Goal Formation With patient/family Patient will transfer supine to/from sit With moderate assist and With assist of 2 Patient will transfer bed to/from chair With moderate assist and With assist of 2 Patient will sit on edge of bed With minimal assist ?? Halfway Goal: Patient to discharge to appropriate next level of inpatient care. If patient is discharged from the facility, this note serves as a discharge note if further occupational therapy visits did not occur. Following therapy session, patient left in neuro/annelise chair, with call light within reach and with RNJose L. Nicolas Fuentes OT * Beata Shafer, PT - 09/16/2017 10:22 AM CDT [facility] PhysicalTherapy Progress Note Co-tx with OT and RT Patient: José Miguel Keys Med Record Number: [id number] Date of : 1950 Age: 66 y.o. Discharge Recommendation: Recommendation: Patient will benefit from inpatient multidisciplinary therapies Plan: 5 Times/Week Subjective: Pt agreeable to PT tx. Patient is not ambulatory at this time. Mental Status: alert, follows 1 step commands 100% At start of therapy session, patient found in bed and with no alarm. Pain: Patient indicates he has 6/10 pain at PEG tube site. Nurse notified, abdominal binder placed prior to upright activity. Weight Bearing Status: WBAT Mobility: Rolling: Moderate assist Supine to Sit: Maximal assist of 2 with HOB flat Sit to Supine: Maximal assist of 2 with HOB flat Sit to Stand: not tested Bed to Chair: Dependent (lateral transfer bed>neuro chair in supine) Gait: Pt is not ambulatory at this time Balance: Static Sitting: poor plus Dynamic sitting: poor Static Standing: not tested Dynamic Standing: not tested Vitals: RT present throughout session, VSS on PSV 40% Activity Tolerance: Patient's activity tolerance: poor Treatment/therapeutic Exercise: Pt seen for bed mobility supine<>sitting EOB, seated trunk AAROM therexs with emphasis on R lateral stretching as pt noted to have mild pelvic obliquity in sitting, and BLE AAROM therexs (AP, LAQ x10 each). Patient/Family Teaching: Exercise and Mobility Patient demonstrated Fair understanding of instructions given. Short Term Goals: Goal Formation With patient/family Patient will transfer supine to/from sit With moderate assist and With assist of 2 Patient will transfer bed to/from chair With moderate assist and With assist of 2 Patient will sit on edge of bed With minimal assist Concrete Batcher Goal: Patient to discharge to appropriate next level of inpatient care. Update Treatment Plan: Continue per plan If patient is discharged from the facility, this note serves as a discharge note if further physical therapy visits did not occur. Following therapy session, patient left in neuro chair, with call light within reach, with family present, and with RN, Jose L velásquez. Beata Shafer, PT 09/16/2017 * Ирина Barrientos, RD/LD - 09/16/2017 9:38 AM CDT Nutrition Re-Assessment Nutrition Recommendations: ?? Change TF product to prevent overfeeding and provide adequate protein ?? Promote at 70 ml/hr. ?? 2 pkt of beneprotein QID with??150 ml water ?? Provides 1872??kcal, 153??g protein, 2010 ml free water. (TF+Beneprotein+water) Comments: Pt s/p PEG 09/15. Current TF order providing 2616 kcal & 129 g protein meeting 138% ofkcals and 96% of protein needs Assessment: Med/Surg History and Clinical Diagnoses: acute hypoxic hypercapnic respiratory failure PMH COPD, CAD, DM Diet order accuracy Current diet order: NPO Current tube feeding order: Osmolite 1.5 at 70 ml + 1 pkt beneprotein QID Nutrition recommendation: alter/change nutrition order P.O.Intake for the past 48 hrs:No Data Recorded GI Concerns: None Chewing/Swallowing: Other (Comment) (vent) Pain affecting intake: No Admission weight: Weight: 220 lb (99.8 kg) (09/06/17 1126) Filed Wts: 09/12/17 0543 09/14/17 0600 09/15/17 0500 09/16/17 0400 Weight: 207 lb 14.3 oz (94.3 kg) 207 lb 0.2 oz (93.9 kg) 217 lb 13 oz (98.8 kg) 199 lb 11.8 oz (90.6 kg) WT Comments: 9.2kg down since admit Laboratory values reviewed. noted Medications noted. Skin: Exceptions to WDL per nursing assess Estimated Energy Needs: KCAL: [id number] ([facility] 2009-obese/vent (97.3kg)) Protein (g): 135-165 (1.8- 2.2g/kg (IBW) obese/vent) Fluid (ml): 2400 (25ml/kg (97.3kg)) Needs based on: Kcal/kg- (Comment) Recommended Access Route: TF Education needed: None Nutrition Care Process (1) Nutrition Diagnostic Statement: Swallowing difficulty related to:: mechanical ventilation as evidenced by:: --- (intubation) Nutrition Intervention: Enteral nutrition: Monitoring: TF, Labs, GI, Vent, Wt Evaluation: Diagnostic Statement #1 Goals: Nutrition Goal: Enteral/Parenteral Nutrition prescription will be consistent with estimated nutrient needs Nutrition Goal Timeframe: Within 24 - 72 hours Nutrition Goal Progress: New goal established AICHA Galeana * Vibha Fang RCP - 09/16/2017 9:19 AM CDT Problem: Mechanical Ventilation Pt will be monitored for secretions and will be suctioned as needed to maintain patent airway. Goal: Tracheostomy tube size 8 will be managed safely Outcome: Ongoing Tracheostomy will be secured device to maintain proper position. Extra Shiley 6,8 tracheostomy cuffed/inner cannula by bedside. Thick (small) bloody secretions with a gag. ? * Cleo Goodwin MD - 09/16/2017 8:01 AM CDT Otolaryngology/Head and Neck Surgery Resident Progress Note 09/16/2017 Admit Date: 09/06/2017 8:02 AM Hospital day: LOS: 10 days Subjective: No acute events overnight. On trach collar yesterday, back on vent this AM. Objective: Temp Min: 96.3 ??F (35.7 ??C) Max: 99.1 ??F (37.3 ??C), Pulse Min: 73 Max: 120, Resp Min: 5 Max: 39, BP Min: 52/38 Max: 146/93 I/O last 3 completed shifts: In: 320 Out: 1270 [Urine:1270] Physical Examination Constitutional: Not in distress CV: RRR Respiration: on vent Neck: 8 cuffed shiley up and in place, incision C/D/I. No erythema or drainage Extremities: Moving all extremities spontaneously Labs (Last 72 hours): Recent Labs Component Name 09/16/17 0413 WBC 8.5 RBC 2.87* HGB 8.1* HCT 27.6* PLT 172 Recent Labs Component Name 09/16/17 0556 09/16/17 0413 09/06/17 1621 GLU 79 92 - - NA - 138 - - K - - - 4.2 CL - 96* - - CO2 - 32* - - BUN - 18 - - CREATININE - 0.6 - - CALCIUM - 8.8 - - - = values in this interval not displayed. Assessment: José Miguel Keys is a 66 y.o. male with acute hypoxic respiratory failure. POD3 s/p tracheostomy Plan: - routine trach care, suction - keep head of bed elevated - only ENT to change trach, first trach change on POD5, 09/18 - page ENT with questions/concerns Cleo Goodwin MD 09/16/2017 8:02 AM * Vita Troncoso MD - 09/16/2017 7:52 AM CDT MEDICAL INTENSIVE CARE UNIT DAILY PROGRESS NOTE 09/16/17 ?? Admit date: 09/06/2017 ?? Subjective: ?? Briefly, José Miguel Keys was admitted to the ICU for acute hypoxic respiratory failure. He has had multiple ICU admissions. He was found to have significant mucous plugging. Currently being treated with ceftaroline and flagyl for MRSA discitis. He was initially intubated in the ED for hypoxia. He was found to have significant mucous plugging on bronchoscopy. He had a left sided pleural drain placed in left fluid effusion with alteplase administered through the catheter to assist with resolution of loculations. ?? Events in the past 24 hours: NO significant events overnight. Stable on the ventilator. Plan for PEG today. ?? ICU Timeline: 09/06 admitted to ICU intubated and on low dose vasopressors 09/07 PSV trial, CT chest to eval L pleural effusion, extubation 09/08left pigtail drain placed. Tried tPa + dornase for 3 doses. Minimal response. 09/09 intubated for hypoxia. Bronchoscopy performed. Thick clear secretions L > R suctioned clear. 09/10: Sat out in the chair for nearly 5 hours. NO significant changes of hypoxia events. 09/11: patient tolerating vent well, plan for possible PERC trach tomorrow 09/12: planned for bedside perc trach however, bedside ultrasound revealed midline vessels prompting ENT consult for OR trach. 09/13: trach by ENT 09/14: tolerating the vent well with trach in place ?? Objective: ?? Current vital signs Patient Vitals for the past 6 hrs: Temp Pulse Resp BP BP Method 09/16/17 0600 98.7 ??F (37.1 ??C) 78 25 104/65 Automatic 09/16/17 0500 - 79 16 111/64 - 09/16/17 0400 - 84 19 127/65 - 09/16/17 0300 - 84 16 98/61 Automatic 09/16/17 0200 - 84 17 102/62 - Input/Output Intake/Output Summary (Last 24 hours) at 09/16/17 0752 Last data filed at 09/16/17 0418 Gross per 24 hour Intake 170 ml Output 935 ml Net -765 ml ?? Physical Exam ?? General: intubated, awake, follows commands ?? HEENT: PERRL, NCAT ?? Neck: supple, No LAD, trach in place ?? Chest: CTA B/L. Coarse breath sounds bilaterally with diminished breath sounds left lower lung, pleural catheter in place ?? Heart: tachycardia, Normal S1, S2. No murmur, gallops and/or rubs. ?? Abdomen: + BS, soft, NT, ND. hepatosplenomegaly ?? Extremities: No edema. Good distal pulses. ?? Neuro: AAOx3, non-focal ? Data Review: ?? CBC: Recent Labs Component Name 09/16/17 0413 09/15/17 0441 09/14/17 0521 WBC 8.5 8.6 10.1 HGB 8.1* 8.2* 8.7* MCV 96.2 95.5 94.7 PLT 172 186 224 BMP: Recent Labs Component Name 09/16/17 0556 09/16/17 0413 09/16/17 0023 09/15/17 0441 09/14/17 0521 09/06/17 1621 09/06/17 1211 07/29/17 1130 NA - 138 - - 138 - 138 - - - - - K - - - - - - - - 4.2 3.8 - 3.3* CL - 96* - - 95* - 96* - - - - - CO2 - 32* - - 33* - 32* - - - - - BUN - 18 - - 23 - 21 - - - - - CREATININE - 0.6 - - 0.6 - 0.6 - - - - - GLU 79 92 89 - 103 - 136* - - - - - - = values in this interval not displayed. Recent Labs Component Name 09/16/17 0413 09/15/17 0441 09/14/17 0521 09/07/17 0428 09/04/17 0447 CALCIUM 8.8 8.8 8.7 - 8.4 - 8.4 PHOS 2.6 - - - 2.9 - 2.9 - = values in this interval not displayed. LFT: Recent Labs Component Name 09/06/17 1157 09/04/177 09/03/17 0431 07/15/17 0504 PROT 6.2 5.3* 5.4* - 6.1 ALB 1.8* 1.5* 1.5* - 2.4* ALKPHOS 204* 190* 212* - 157* AST 21 27 26 - 34 ALT 10 12 12 - 25 TBILI 0.3 0.3 0.3 - 1.8* GGT - - - - 66* - = values in this interval not displayed. Coagulation: Recent Labs Component Name 09/15/17 0441 09/11/17 0437 09/09/17 0422 PT 15.1* 14.1 15.8* INR 1.2 1.1 1.3 Lab results smartLinks are not currently available Cardiac markers: Recent Labs Component Name 09/06/17 1157 08/26/17 1420 TROPONINI 0.027 <0.010 ABGs: Recent Labs Component Name 09/10/17 0557 PO2ART 80 [id number] 44 [id number] 30.0* ?? Radiology: ?? CXR this morning with improvement in LLL opacity compared with previous CXR ?? Assessment: ?? 1. Acute hypoxic respiratory failure with mucous plugging 2. 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 Left pleural Effusion 4. Atrial Fibrillation 5. Debility ?? Plan: ?? Neuro/Psych: - analgesia for chronic lumbago - oxycodone 5mg PO q4 PRN and fentanyl with lidoderm patches PRN for breakthrough ?? Cardiovascular: - on ASA 81mg and Lipitor 20mg PO qD Atrial Fibrillation - amionadrone BID - lasix 20 mg daily for continues diuresis ?? Pulmonary: Acute Hypoxic respiratory failure s/p trach - continue on: Ventilation Rate Set (bpm): 16 bpm Ventilation Rate Observed (bpm): 22 bpm Tidal Volume Set (mL): 400 ML Peak Inspiratory Pressure Observed (cm H2O): 22 cm H2O PEEP/CPAP: 10 cm H20 Pressure Support (cm H2O): 0 cm H2O O2 % (FiO2): 40 % - plan for trach collar trial today - aggressive Chest PT with Bed and IPv q 4 hours - albuterol nebs q4 s/p Tracheostomy (09/13) - done by ENT, plan for trach change on POD 5-7 Left pleural effusion - s/p L pleural 14Fr catheter removal - no Pneumothorax on CXR - Thoracic surgery consult: no surgical management for effusion GI/Nutrition: - PEG on 09/15, plan to restart tube feeds after seen by GI fellow Renal/Electrolytes/Acid-Base: - replace lytes as needed ?? Infectious Disease: - completed abx for MRSA discitis - macias culture if febrile - transudative pleural fluid ?? Hematology/Oncology: Normocytic Anemia ?? Endocrine: - SS insulin - continue synthroid ?? Musculoskeletal/Skin: PT/OT ?? GI prophylaxis:pepcid DVT prophylaxis:SCDs, lovenox Lines: PIV, d/c umaña Diet: resume tube feeds after cleared by GI fellow Code Status: full Disposition: plan for LTAC placement - patient has been accepted at [facility] Associated attestation - Yogesh Duncan MD - 09/16/2017 3:28 PM CDT MICU Attending Note: Patient seen and examined with the MICU team. Please see note for further details. I confirm history, exam, assessment and plan except as I have noted below: Interval History: Tolerating PSV. ROS: Not obtained due to intubation Exam: Vitals: 09/16/17 1315 09/16/17 1345 09/16/17 1400 09/16/17 1415 BP: 88/64 Pulse: 93 89 90 87 Resp: Temp: SpO2: 93% 95% 97% 96% Weight: Estimated body mass index is 28.66 kg/(m^2) as calculated from the following: Height as of this encounter: 1.778 m (5' 10 ). Weight as of this encounter: 90.6 kg (199 lb 11.8 oz). AA, following commands, no new neurological deficits CVS: S1S2+, RRR RS: BL CTA Abd: soft NT ND BS+ Ext: no edema Labs: CBC: Recent Labs Component Name 09/16/17 0413 09/15/17 04409/14/17 0521 WBC 8.5 8.6 10.1 HGB 8.1* 8.2* 8.7* HCT 27.6* 27.6* 28.4* PLT 172 186 224 BMP: Recent Labs Component Name 09/16/17 1222 09/16/17 0556 09/16/17 0413 09/15/17 0441 09/14/17 0521 09/07/17 0428 09/06/17 1621 09/06/17 1211 09/04/1744607/29/17 1130 NA - - 138 - 138 - 138 - 140 - - - 141 - - K - - - - - - - - - 4.2 3.8 - - - 3.3* CL - - 96* - 95* - 96* - 106 - - - 107 - - CO2 - - 32* - 33* - 32* - 25 - - - 27 - - BUN - - 18 - 23 - - 24 - - - 11 - - CREATININE - - 0.6 - 0.6 - 0.6 - 0.7 - - - 0.6 - - CALCIUM - - 8.8 - 8.8 - 8.7 - 8.4 - - - 8.4 - - GLU 91 79 92 - 103 - 136* - 156* - - - 87 - - PHOS - - 2.6 - - - - - 2.9 - - - 2.9 - - - = values in this interval not displayed. Hepatic: Recent Labs Component Name 09/06/17 1157 04/06/23 44609/03/17 0431 ALT 10 12 12 AST 21 27 26 TBILI 0.3 0.3 0.3 PROT 6.2 5.3* 5.4* ALB 1.8* 1.5* 1.5* ALKPHOS 204* 190* 212* Coagulation: Recent Labs Component Name 09/15/17 0441 09/11/17 0437 09/09/17 0422 PT 15.1* 14.1 15.8* INR 1.2 1.1 1.3 Cardiac Markers: Recent Labs Component Name 09/06/17 1157 08/26/17 1420 TROPONINI 0.027 <0.010 ABGs: Recent Labs Component Name 09/10/17 0557 09/09/17 0841 09/09/17 0422 PHART 7.45 7.51* 7.41 PO2ART 80 274* 65* [id number] 44 38 45 BEART 5.4* 5.7* 2.4* Assessment: Active Hospital Problems Diagnosis Date Noted ??? Acute respiratory failure with hypoxia 08/29/2017 ??? Methicillin resistant Staphylococcus aureus infection 08/29/2017 ??? Discitis of lumbar region 08/29/2017 Plan: - continue on PSV. Try trach collar 1 hr twice today. - rest on VAC at night. - continue aggressive pulmonary toileting - continue ceftaroline - Rest of the plan is for the resident's note transfer to LTACH when cleared by ENT, has been accepted to [facility] Critical Care Attending: Dr. Yogesh Duncan MD, MPH * Jaclyn Monsivais RCP - 09/15/2017 3:53 PM CDT Patient seen for bedside mobility together with PT,OT,RT Start time: 1415 End time: 1450 Session duration: 35 Airway and position:trached and vented Patient's vent/O2 settings during session: Vent AC VT 400, RR 16, PEEP 10, FIO2 40% Vital signs continuously monitored during session and were as follows. Before: Heart rate - 88 Respiratory rate- 22 SpO2- 98 During: - 82 24 93 After: 85 24 97 Patient activity:sitting on EOB, standing with assistance Patient tolerated session well, suctioned large amount of thick clear orally Post treatment patient resting in bed * Gabriela Isaacs, OT - 09/15/2017 2:15 PM CDT [facility] Occupational Therapy Progress Note Patient: José Miguel Keys Med Record Number: [id number] Date of : 1950 Age: 66 y.o. Co-tx with PT and RT Recommendation: Recommendation: Patient will benefit from inpatient multidisciplinary therapies Need Tech Assist: Yes Plan: OT Frequency: 5 Times/Week Precautions: Weight Bearing Status: (WBAT) Subjective: patient unable to verbalize with trach to ventilator. Nods yes/no and writes to communicate. At start of therapy session, patient found in bed, with no alarm and at bedside. Pain: Patient has c/o pain in L side from PEG placement. RN aware. Activities of Daily Living Feeding:NT Grooming/Bathing: Moderate assist for facial hygiene seated at EOB Upper Extremity Dressing: Maximal assist to manage gown during transfers. Lower Extremity Dressing: Maximal assist to don/doff socks Toileting/Transfers: maximal assist x2 for toileting in supine after incontinent episode. Mobility: Assist device: Sera Plus Supine to/from Sit:Maximal assist of 2 Sit to/from Stand: Maximal assist of 2 with use of Sera Plus. Patient able to maintain UB alignmentand utilize UE's for the stand. Bed to/from Chair: not tested Functional Mobility: not tested Splint Issued/Checked: none Splint Check Completed: N/A Balance: Static Sitting: poor plus Dynamic Sitting: poor Static Standing: not tested- supported by sera plus in standing. Dynamic Standing: not tested Activity Tolerance: Patient's activity tolerance: poor, RT present to manage secretions and oxygen needs on ventilator.All VSS. Cognitive/Perceptual: A&O x 4. Appropriate in conversation. Follows 1-step commands 100% with fair attention to task. Fair insight and safety awareness this date. Treatment/Therapeutic Exercise: Treatment session this date focused on ADL training Cognitive retraining Functional transfer training Endurance training Energy conservation Safety awareness Patient/Family Teaching: Exercise, Mobility and Self care Equipment Issued: none Update Treatment Plan/Goals : Pt continues to benefit from skilled OT to improve independence with activities of daily living, increase strength, endurance, range of motion and decrease pain. Continue OT goals per POC. Short Term Goals: Patient will perform grooming With min assist Patient will transfer to bedside commode With max assist and X 2 Patient will perform supine to sit With mod assist and X 2 Patient will perform sit to stand With mod assist and X 2 Halfway Goal:Patient to discharge to appropriate next level of inpatient care If patient is discharged from the facility, this note serves as a discharge note if further occupational therapy visits did not occur. Following therapy session, patient left in bed, with call light within reach, with family in room and with RN, Jose L aware. Gabriela Isaacs OT * Beata Shafer, PT - 09/15/2017 2:10 PM CDT [facility] PhysicalTherapy Progress Note Co-tx with OT and RT Patient: José Miguel Keys Med Record Number: [id number] Date of : 1950 Age: 66 y.o. Discharge Recommendation: Recommendation: Patient will benefit from inpatient multidisciplinary therapies Plan: 5 Times/Week Subjective: Pt agreeable to PT tx. Indicates discomfort around new PEG tube site. Patient is not ambulatory at this time. Mental Status: alert, follows 1 step commands 100% At start of therapy session, patient found in bed and with no alarm. Pain: Patient mouths that he has pain in L abdomen, unable to quantify. Nurse notified. Weight Bearing Status: WBAT Mobility: Rolling: Moderate assist Supine to Sit: Moderate assist of 2 with HOB elevated Sit to Supine: Maximal assist of 2 with HOB flat Sit to Stand: Maximal assist - used SERA plus for assisted stand x2 trials (one full stand, one half stand) Bed to Chair: not tested Gait: Pt is not ambulatory at this time Balance: Static Sitting: poor plus Dynamic sitting: poor Static Standing: not tested Dynamic Standing: not tested Vitals: RT present throughout session, VSS on vent Activity Tolerance: Patient's activity tolerance: poor Treatment/therapeutic Exercise: Pt seen for bed mobility supine<>sitting EOB, supported sitting balance training in SERA plus, and assisted standing with SERA plus. Patient/Family Teaching: Exercise and Mobility Patient demonstrated Fair understanding of instructions given. Short Term Goals: Goal Formation With patient/family Patient will transfer supine to/from sit With moderate assist and With assist of 2 Patient will transfer bed to/from chair With moderate assist and With assist of 2 Patient will sit on edge of bed With minimal assist Halfway Goal: Patient to discharge to appropriate next level of inpatient care. Update Treatment Plan: Continue per plan If patient is discharged from the facility, this note serves as a discharge note if further physical therapy visits did not occur. Following therapy session, patient left in bed, with call light within reach, with family present, and with RN, Jose L aware. Beata Shafer, PT 09/15/2017 * Vibha Fang RCP - 09/15/2017 10:01 AM CDT Problem: Mechanical Ventilation Pt will be monitored for secretions and will be suctioned as needed to maintain patent airway. Goal: Tracheostomy tube size 8 will be managed safely Outcome: Ongoing Tracheostomy will be secured device to maintain proper position. Extra Shiley 6,8 tracheostomy cuffed/inner cannula by bedside. Thick (small) bloody secretions with a gag. ? * Louis Mcconnell MD - 09/15/2017 8:53 AM CDT I have seen and examined the patient and discussed the case with the housestaff. See note for more details. Agree with their findings. In addition: -Subjectively: C/O back pain -Objectively: -Vital signs:BP 100/60 Pulse 85 Temp 97.8 ??F (36.6 ??C) Resp 14 Ht 1.778 m (5' 10 ) Wt 98.8 kg (217 lb 13 oz) SpO2 99% BMI 31.25 kg/m2 -Lungs: Clear to auscultation -Heart: reg./reg. No murmur or gallop -Abdomen: soft, non-tender. Bowel sounds present. No mass or organomegaly. -No edema -Neuro: Non- focal - Labs: @LABSLH@ Recent Labs Component Name 09/06/17 1157 AST 21 ALT 10 ALKPHOS 204* TBILI 0.3 ALB 1.8* -Impression: Need for long term care phlebotomist enteral feedings -Plan/ recommendations: - PEG today * Vita Troncoso MD - 09/15/2017 7:30 AM CDT MEDICAL INTENSIVE CARE UNIT DAILY PROGRESS NOTE 09/15/17 ?? Admit date: 09/06/2017 ?? Subjective: ?? Briefly, José Miguel Keys was admitted to the ICU for acute hypoxic respiratory failure. He has had multiple ICU admissions. He was found to have significant mucous plugging. Currently being treated with ceftaroline and flagyl for MRSA discitis. He was initially intubated in the ED for hypoxia. He was found to have significant mucous plugging on bronchoscopy. He had a left sided pleural drain placed in left fluid effusion with alteplase administered through the catheter to assist with resolution of loculations. ?? Events in the past 24 hours: NO significant events overnight. Stable on the ventilator. Plan for PEG today. ?? ICU Timeline: 09/06 admitted to ICU intubated and on low dose vasopressors 09/07 PSV trial, CT chest to eval L pleural effusion, extubation 09/08left pigtail drain placed. Tried tPa + dornase for 3 doses. Minimal response. 09/09 intubated for hypoxia. Bronchoscopy performed. Thick clear secretions L > R suctioned clear. 09/10: Sat out in the chair for nearly 5 hours. NO significant changes of hypoxia events. 09/11: patient tolerating vent well, plan for possible PERC trach tomorrow 09/12: planned for bedside perc trach however, bedside ultrasound revealed midline vessels prompting ENT consult for OR trach. 09/13: trach by ENT 09/14: tolerating the vent well with trach in place ?? Objective: ?? Current vital signs Patient Vitals for the past 6 hrs: Temp Pulse Resp BP BP Method 09/15/17 0600 - 85 14 - Automatic 09/15/17 0500 - 82 (!) 5 100/60 - 09/15/17 0455 - 81 16 - - 09/15/17 0400 - 82 14 106/64 Automatic 09/15/17 0300 - 84 22 103/64 - 09/15/17 0205 - 88 21 - - 09/15/17 0200 98.7 ??F (37.1 ??C) 87 18 116/72 - Input/Output Intake/Output Summary (Last 24 hours) at 09/15/17 0734 Last data filed at 09/15/17 0508 Gross per 24 hour Intake 1600 ml Output 1080 ml Net 520 ml ?? Physical Exam ?? General: intubated, awake, follows commands ?? HEENT: PERRL, NCAT ?? Neck: supple, No LAD, trach in place ?? Chest: CTA B/L. Coarse breath sounds bilaterally with diminished breath sounds left lower lung, pleural catheter in place ?? Heart: tachycardia, Normal S1, S2. No murmur, gallops and/or rubs. ?? Abdomen: + BS, soft, NT, ND. hepatosplenomegaly ?? Extremities: No edema. Good distal pulses. ?? Neuro: AAOx3, non-focal ? Data Review: ?? CBC: Recent Labs Component Name 09/15/1744009/14/1752009/13/17 0517 WBC 8.6 10.1 8.9 HGB 8.2* 8.7* 8.5* MCV 95.5 94.7 93.6 PLT 186 224 213 BMP: Recent Labs Component Name 09/15/1744009/15/17 0223 09/14/17 1945 09/14/17 0521 09/13/17 0517 09/06/17 1621 09/06/17 1211 07/29/17 1130 NA 138 - - - 138 - 139 - - - - - K - - - - - - - - 4.2 3.8 - 3.3* CL 95* - - - 96* - 96* - - - - - CO2 33* - - - 32* - 31* - - - - - BUN 23 - - - 21 - 26 - - - - - CREATININE 0.6 - - - 0.6 - 0.6 - - - - - GLU 103 145* 165* - 136* - 96 - - - - - - = values in this interval not displayed. Recent Labs Component Name 09/15/1744009/14/17 0521 09/13/17 0517 09/07/17 0428 09/04/17 0447 09/03/17 0431 CALCIUM 8.8 8.7 9.0 - 8.4 - 8.4 8.6 PHOS - - - - 2.9 - 2.9 2.8 - = values in this interval not displayed. LFT: Recent Labs Component Name 09/06/17 1157 09/04/17 0447 09/03/17 0431 07/15/17 0504 PROT 6.2 5.3* 5.4* - 6.1 ALB 1.8* 1.5* 1.5* - 2.4* ALKPHOS 204* 190* 212* - 157* AST 21 27 26 - 34 ALT 10 12 12 - 25 TBILI 0.3 0.3 0.3 - 1.8* GGT - - - - 66* - = values in this interval not displayed. Coagulation: Recent Labs Component Name 09/15/17 0441 09/11/17 0437 09/09/17 0422 PT 15.1* 14.1 15.8* INR 1.2 1.1 1.3 Lab results smartLinks are not currently available Cardiac markers: Recent Labs Component Name 09/06/17 1157 08/26/17 1420 TROPONINI 0.027 <0.010 ABGs: Recent Labs Component Name 09/10/17 0557 PO2ART 80 [id number] 44 [id number] 30.0* ?? Radiology: ?? CXR this morning with improvement in LLL opacity compared with previous CXR ?? Assessment: ?? 1. Acute hypoxic respiratory failure with mucous plugging 2. 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 Left pleural Effusion 4. Atrial Fibrillation 5. Debility ?? Plan: ?? Neuro/Psych: - analgesia for chronic lumbago - oxycodone 5mg PO q4 PRN and fentanyl with lidoderm patches PRN for breakthrough ?? Cardiovascular: - on ASA 81mg and Lipitor 20mg PO qD Atrial Fibrillation - amionadrone BID - lasix 20 mg daily for continues diuresis - BNP elevated 694, but improved from 4 days ago (806) ?? Pulmonary: Acute Hypoxic respiratory failure s/p trach - continue on: Ventilation Rate Set (bpm): 16 bpm Ventilation Rate Observed (bpm): 17 bpm Tidal Volume Set (mL): 400 ML Peak Inspiratory Pressure Observed (cm H2O): 21 cm H2O PEEP/CPAP: 10 cm H20 Pressure Support (cm H2O): 0 cm H2O O2 % (FiO2): 40 % - aggressive Chest PT with Bed and IPv q 4 hours - albuterol nebs q4 s/p Tracheostomy (09/13) - done by ENT Left pleural effusion - s/p L pleural 14Fr catheter removal - no Pneumothorax on CXR - Thoracic surgery consult: no surgical management for effusion GI/Nutrition: - plan for PEG placement today with GI ??- NPO since midnight Renal/Electrolytes/Acid-Base: - replace lytes as needed ?? Infectious Disease: - ceftaroline and flagyl d/c's after pleural catheter removal on 09/15 - macias culture if febrile - transudative pleural fluid ?? Hematology/Oncology: No acute issues ?? Endocrine: - SS insulin - continue synthroid ?? Musculoskeletal/Skin: PT/OT ?? GI prophylaxis:pepcid DVT prophylaxis:SCDs, lovenox Lines: PIV, umaña Diet: NPO at midnight for PEG tomorrow Code Status: full Disposition: plan for LTAC placement - patient has been accepted at [facility] * Bandar Davis MD - 09/15/2017 7:14 AM CDT Otolaryngology/Head and Neck Surgery Resident Progress Note 09/15/2017 Admit Date: 09/06/2017 7:14 AM Hospital day: LOS: 9 days Subjective: No acute events overnight. Still on vent. Objective: Temp Min: 96.3 ??F (35.7 ??C) Max: 99.1 ??F (37.3 ??C), Pulse Min: 73 Max: 120, Resp Min: 5 Max: 39, BP Min: 52/38 Max: 146/93 I/O last 3 completed shifts: In: 2342 [I.V.:70; NG/GT:246] Out: 1655 [Urine:1635; Drains:20] Physical Examination Constitutional: Not in distress, more awake than prior CV: RRR Respiration: on vent Neck: 8 cuffed shiley up and in place, incision C/D/I. Extremities: Moving all extremities spontaneously Labs (Last 72 hours): Recent Labs Component Name 09/15/17 0441 WBC 8.6 RBC 2.89* HGB 8.2* HCT 27.6* PLT 186 Recent Labs Component Name 09/15/17 0441 09/06/17 1621 GLU 103 - - NA 138 - - K - - 4.2 CL 95* - - CO2 33* - - BUN 23 - - CREATININE 0.6 - - CALCIUM 8.8 - - - = values in this interval not displayed. Assessment: José Miguel Keys is a 66 y.o. male with acute hypoxic respiratory failure. 2 Days Post-Op s/p tracheostomy Plan: - routine trach care, suction - keep head of bed elevated - only ENT to change trach prior to first trach change on POD#5-7 - page ENT with questions/concerns Bandar Davis MD 09/15/2017 7:14 AM * Vita Troncoso MD - 09/14/2017 4:10 PM CDT MEDICAL INTENSIVE CARE UNIT DAILY PROGRESS NOTE 09/14/17 ?? Admit date: 09/06/2017 ?? Subjective: ?? Briefly, José Miguel Keys was admitted to the ICU for acute hypoxic respiratory failure. He has had multiple ICU admissions. He was found to have significant mucous plugging. Currently being treated with ceftaroline and flagyl for MRSA discitis. He was initially intubated in the ED for hypoxia. He was found to have significant mucous plugging on bronchoscopy. He had a left sided pleural drain placed in left fluid effusion with alteplase administered through the catheter to assist with resolution of loculations. ?? Events in the past 24 hours: NO significant events overnight. Stable on the ventilator. ?? ICU Timeline: 09/06 admitted to ICU intubated and on low dose vasopressors 09/07 PSV trial, CT chest to eval L pleural effusion, extubation 09/08left pigtail drain placed. Tried tPa + dornase for 3 doses. Minimal response. 09/09 intubated for hypoxia. Bronchoscopy performed. Thick clear secretions L > R suctioned clear. 09/10: Sat out in the chair for nearly 5 hours. NO significant changes of hypoxia events. 09/11: patient tolerating vent well, plan for possible PERC trach tomorrow 09/12: planned for bedside perc trach however, bedside ultrasound revealed midline vessels prompting ENT consult for OR trach. 09/13: trach by ENT ?? Objective: ?? Current vital signs Patient Vitals for the past 6 hrs: Temp Pulse Resp BP BP Method 09/14/17 1524 - 89 18 - - 09/14/17 1500 - 87 15 107/68 Automatic 09/14/17 1400 - 83 19 105/67 - 09/14/17 1300 - 85 16 109/73 Automatic 09/14/17 1200 98.3 ??F (36.8 ??C) 88 22 103/69 Automatic 09/14/17 1100 - 94 18 134/82 - Input/Output Intake/Output Summary (Last 24 hours) at 09/14/17 1611 Last data filed at 09/14/17 1400 Gross per 24 hour Intake 1822 ml Output 1880 ml Net -58 ml ?? Physical Exam ?? General: intubated, awake, follows commands ?? HEENT: PERRL, NCAT ?? Neck: supple, No LAD, trach in place ?? Chest: CTA B/L. Coarse breath sounds bilaterally with diminished breath sounds left lower lung, pleural catheter in place ?? Heart: tachycardia, Normal S1, S2. No murmur, gallops and/or rubs. ?? Abdomen: + BS, soft, NT, ND. hepatosplenomegaly ?? Extremities: No edema. Good distal pulses. ?? Neuro: AAOx3, non-focal ? Data Review: ?? CBC: Recent Labs Component Name 09/14/17 0521 09/13/17 0517 09/12/17 0514 WBC 10.1 8.9 9.5 HGB 8.7* 8.5* 8.6* MCV 94.7 93.6 96.3 PLT 224 213 185 BMP: Recent Labs Component Name 09/14/17 1246 09/14/17 0634 09/14/17 0521 09/13/17 0517 09/12/17 0514 09/06/17 1621 09/06/17 1211 07/29/17 1130 NA - - 138 - 139 - 139 - - - - - K - - - - - - - - 4.2 3.8 - 3.3* CL - - 96* - 96* - 98 - - - - - CO2 - - 32* - 31* - 28 - - - - - BUN - - 21 - 26 - 35* - - - - - CREATININE - - 0.6 - 0.6 - 0.7 - - - - - GLU 183* 149* 136* - 96 - 96 - - - - - - = values in this interval not displayed. Recent Labs Component Name 09/14/17 0521 09/13/17 0517 09/12/17 0514 09/07/1742709/04/1744609/03/17 043 CALCIUM 8.7 9.0 8.6 - 8.4 - 8.4 8.6 PHOS - - - - 2.9 - 2.9 2.8 - = values in this interval not displayed. LFT: Recent Labs Component Name 09/06/17 11509/04/1744609/03/17 0431 07/15/17 0504 PROT 6.2 5.3* 5.4* - 6.1 ALB 1.8* 1.5* 1.5* - 2.4* ALKPHOS 204* 190* 212* - 157* AST 21 27 26 - 34 ALT 10 12 12 - 25 TBILI 0.3 0.3 0.3 - 1.8* GGT - - - - 66* - = values in this interval not displayed. Coagulation: Recent Labs Component Name 09/11/1743609/09/17 0422 09/07/17427 PT 14.1 15.8* 18.8* INR 1.1 1.3 1.6 Lab results smartLinks are not currently available Cardiac markers: Recent Labs Component Name 09/06/17 1157 08/26/17 1420 TROPONINI 0.027 <0.010 ABGs: Recent Labs Component Name 09/10/17 0557 PO2ART 80 [id number] 44 [id number] 30.0* ?? Radiology: ?? CXR this morning with increased LL opacity ?? Assessment: ?? 1. Acute hypoxic respiratory failure with mucous plugging 2. 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 Left pleural Effusion 4. Atrial Fibrillation ?? Plan: ?? Neuro/Psych: - analgesia for chronic lumbago - oxycodone 5mg PO q4 PRN and fentanyl with lidoderm patches PRN for breakthrough ?? Cardiovascular: - on ASA 81mg and Lipitor 20mg PO qD Atrial Fibrillation - amionadrone BID ?? Pulmonary: Acute Hypoxic respiratory failure s/p trach - continue on: Ventilation Rate Set (bpm): 16 bpm Ventilation Rate Observed (bpm): 19 bpm Tidal Volume Set (mL): 400 ML Peak Inspiratory Pressure Observed (cm H2O): 17 cm H2O PEEP/CPAP: 10 cm H20 Pressure Support (cm H2O): 0 cm H2O O2 % (FiO2): 40 % - aggressive Chest PT with Bed and IPv q 4 hours - albuterol nebs q4 Left pleural effusion - s/p L pleural 14Fr catheter - plan for removal today - Thoracic surgery consult: no surgical management for effusion ?? GI/Nutrition: - GI consult for PEG placement ?? Renal/Electrolytes/Acid-Base: - replace lytes as needed ?? Infectious Disease: - on ceftaroline and flagyl for MRSA Discitis, will continue ceftaroline until pleural drain removed - macias culture if febrile - transudative pleural fluid ?? Hematology/Oncology: - INR trended down ?? Endocrine: - SS insulin - continue synthroid ?? Musculoskeletal/Skin: PT/OT ?? GI prophylaxis:pepcid DVT prophylaxis:SCDs, lovenox Lines: PIV, umaña Diet: NPO at midnight for PEG tomorrow Code Status: full Disposition: continued ICU care Vita Troncoso MD 09/12/2017 * Kalyan Cook [facility] - 09/14/2017 1:25 PM CDT Patient seen for bedside mobility together with OT PT Start time: 1325 End time: 1350 Session duration: 25 Airway and position: trach Patient's vent/O2 settings during session: PSV 15/10/40% Vital signs continuously monitored during session and were as follows. Before: Heart rate - 84 Respiratory rate- 12 SpO2- 98 During: - 88 16 98 After: 81 16 98 Patient activity:Assisted to sit at bedside and stand Patient tolerated session well Post treatment patient Resting well in bed * Gabriela Isaacs OT - 09/14/2017 1:20 PM CDT [facility] Occupational Therapy Progress Note Patient: José Miguel Keys Med Record Number: [id number] Date of : 1950 Age: 66 y.o. Co-tx with PT and RT Recommendation: Recommendation: Patient will benefit from inpatient multidisciplinary therapies Need Tech Assist: Yes Plan: OT Frequency: 5 Times/Week Precautions: Weight Bearing Status: (WBAT) Subjective: Patient unable to verbalize with trach to vent. Nods yes/no appropriately to communicate. Agreeable to therapy. At start of therapy session, patient found in bed, with no alarm and at bedside. Pain: Patient has c/o pain in back this date with all movement. Not rated. RN aware. Had received pain medication just prior to therapy. Activities of Daily Living Feeding:NT Grooming/Bathing: Minimal assist for facial hygiene in supine Upper Extremity Dressing: Maximal assist to manage gown during transfers. Lower Extremity Dressing: Maximal assist to don/doff socks Toileting/Transfers: Maximal assist x2 for toileting in supine including rolling, pericare, and clothing management. Mobility: Assist device: none Supine to/from Sit:Maximal assist of 2 Sit to/from Stand: Maximal assist of 2 for 1 standing trial with bed height elevated. Patient unable to achieve standing position Bed to/from Chair: not tested Functional Mobility: not tested Splint Issued/Checked: none Splint Check Completed: N/A Balance: Static Sitting: poor plus Dynamic Sitting: poor Static Standing: poor Dynamic Standing: not tested Activity Tolerance: Patient's activity tolerance: poor, RT present to manage secretions and oxygen needs on vent. All VSS Cognitive/Perceptual: A&O x 2-3. Appropriate in conversation via nodding and gesturing. Follows1-step commands 100% with fair attention to task. Fair insight and safety awareness this date. Treatment/Therapeutic Exercise: Treatment session this date focused on ADL training Cognitive retraining Functional transfer training Endurance training Energy conservation Safety awareness Patient/Family Teaching: Exercise, Mobility and Self care Equipment Issued: none Update Treatment Plan/Goals : Pt continues to benefit from skilled OT to improve independence with activities of daily living, increase strength, endurance, range of motion and decrease pain. Continue OT goals per POC. Short Term Goals: Patient will perform grooming With min assist Patient will transfer to bedside commode With max assist and X 2 Patient will perform supine to sit With mod assist and X 2 Patient will perform sit to stand With mod assist and X 2 Halfway Goal:Patient to discharge to appropriate next level of inpatient care If patient is discharged from the facility, this note serves as a discharge note if further occupational therapy visits did not occur. Following therapy session, patient left in bed, with call light within reach, with family in room and with RNAlexia. Gabriela Isaacs OT * Beata Shafer, PT - 09/14/2017 1:20 PM CDT [facility] PhysicalTherapy Progress Note Updated orders received s/p tracheostomy, no re-evaluation indicated - continue PT POC Co-tx with OT and RT Patient: José Miguel Keys Med Record Number: [id number] Date of : 1950 Age: 66 y.o. Discharge Recommendation: Recommendation: Patient will benefit from inpatient multidisciplinary therapies Plan: 5 Times/Week Subjective: Pt agreeable to PT tx with min encouragement from staff and family. Patient is not ambulatory at this time. Mental Status: alert, follows 1 step commands 100% At start of therapy session, patient found in bed and with no alarm. Pain: Patient mouths that he has back pain with activity, unable to quantify. Nurse notified. Weight Bearing Status: WBAT Mobility: Rolling: Moderate assist Supine to Sit: Moderate assist of 2 with HOB elevated Sit to Supine: Maximal assist of 2 with HOB flat Sit to Stand: Maximal assist of 2 for sit>1/2 stand, unable to achieve full hip extension Bed to Chair: not tested Gait: Pt is not ambulatory at this time Balance: Static Sitting: poor plus Dynamic sitting: poor Static Standing: not tested Dynamic Standing: not tested Vitals: RT present throughout session, VSS on PSV 40% Activity Tolerance: Patient's activity tolerance: poor Treatment/therapeutic Exercise: Pt seen for bed mobility supine<>sitting EOB and beginning LEWB exercise with sit<>1/2 stand x1 rep with max A of 2. All mobility completed without TLSO, pt's educated that pt will need TLSO as standing/gait training progresses. Patient/Family Teaching: Exercise and Mobility Patient demonstrated Fair understanding of instructions given. Short Term Goals: Goal Formation With patient/family Patient will transfer supine to/from sit With moderate assist and With assist of 2 Patient will transfer bed to/from chair With moderate assist and With assist of 2 Patient will sit on edge of bed With minimal assist Halfway Goal: Patient to discharge to appropriate next level of inpatient care. Update Treatment Plan: Continue per plan If patient is discharged from the facility, this note serves as a discharge note if further physical therapy visits did not occur. Following therapy session, patient left in bed in chair position, with call light within reach and with RNAlexia aware. Beata Shafer, CAM 09/14/2017 * Christina Mendieta RN - 09/14/2017 9:53 AM CDT Spoke with unit coordinator from [facility]. Patient has been accepted at facility and may go when patient is medically stable. Nursing staff aware. Christina Mendieta RN 09/14/2017 9:57 AM * Beata Shafer, PT - 09/14/2017 7:51 AM CDT [facility] Department of Physical Medicine & Rehabilitation Progress Note Patient: José Miguel Keys Med Record Number: [id number] Date of : 1950 Age: 66 y.o. 09/14/17 0751 Therapy on Hold Therapy on hold Surgery. Chart reviewed, patient to OR with general anesthesia. Patient now on holdfrom therapy services. Please re-consult when patient is appropriate for functional mobility and therapy interventions. Beata Shafer PT 09/14/2017 7:52 AM * Gabriela Isaacs OT - 09/14/2017 7:51 AM CDT Occupational Therapy [facility] Department of Physical Medicine & Rehabilitation Progress Note Patient: José Miguel Keys Med Record Number: [id number] Date of : 1950 Age: 66 y.o. 09/14/17 0700 Therapy on Hold Therapy on hold Surgery. Chart reviewed, patient to OR with general anesthesia. Patient now on holdfrom therapy services. Please re-consult when patient is appropriate for functional mobility and therapy interventions. * Cleo Goodwin MD - 09/14/2017 7:05 AM CDT Otolaryngology/Head and Neck Surgery Resident Progress Note 09/14/2017 Admit Date: 09/06/2017 7:05 AM Hospital day: LOS: 8 days Subjective: OR for trach yesterday, no complications intraoperatively. VSS, AF overnight. Objective: Temp Min: 96.3 ??F (35.7 ??C) Max: 99.1 ??F (37.3 ??C), Pulse Min: 73 Max: 120, Resp Min: 9 Max: 39, BP Min: 52/38 Max: 146/93 I/O last 3 completed shifts: In: 1412 [I.V.:500; NG/GT:246] Out: 3340 [Urine:3340] Physical Examination Constitutional: Not in distress, more awake than prior CV: RRR Respiration: on vent Neck: 8 cuffed shiley up and in place, incision C/D/I. Extremities: Moving all extremities spontaneously Labs (Last 72 hours): Recent Labs Component Name 09/14/17 0521 WBC 10.1 RBC 3.00* HGB 8.7* HCT 28.4* PLT 224 Recent Labs Component Name 09/14/17 0634 09/14/17 0521 09/06/17 1621 GLU 149* 136* - - NA - 138 - - K - - - 4.2 CL - 96* - - CO2 - 32* - - BUN - 21 - - CREATININE - 0.6 - - CALCIUM - 8.7 - - - = values in this interval not displayed. Assessment: José Miguel Keys is a 66 y.o. male with acute hypoxic respiratory failure. ENT consulted for trach placement. Plan: - routine trach care, suction - keep head of bed elevated - will continue to monitor, first change in one week - page ENT with questions/concerns Cleo Goodwin MD Anesthesiology PGY-1 09/14/2017 7:05 AM * Glendy Murphy RN - 09/13/2017 3:33 PM CDT Problem: Oxygenation/Respiratory Function Goal: Resp rate/effort will be within specified limits Patient will continue to optimize breathing efforts while on the vent. * Christina Mendieta RN - 09/13/2017 10:25 AM CDT Case management notified for LTAC placement. 's preference is [facility]. Referral sent and call placed to nursing project coordinator and will review the patients eligibility today. Patient to have trach and PEG placed today. Christina Mendieta RN 09/13/2017 10:27 AM [phone] * Kalyan Cook RCP - 09/13/2017 9:35 AM CDT Patient seen for bedside mobility together with OT PT Start time: 0935 End time: 1000 Session duration: 25 Airway and position: Size 8, 24 at the lip Patient's vent/O2 settings during session: A/C 16 mVT 380 Peep5 40% Vital signs continuously monitored during session and were as follows. Before: Heart rate - 92 Respiratory rate- 23 SpO2- 93 During: - 96 30 96 with 100% breaths After: 88 28 93 back on 40% Patient activity: Assisted to sit at bedside Patient tolerated session well with suction Post treatment patient Resting well in bed * Gabriela Isaacs OT - 09/13/2017 9:30 AM CDT Occupational Therapy [facility] Occupational Therapy Progress Note Patient: José Miguel Keys [facility] Record Number: [id number] Date of : 1950 Age: 66 y.o. Co-tx with PT and RT Recommendation: Recommendation: Patient will benefit from inpatient multidisciplinary therapies) Plan: OT treatment session 5x/ week Precautions: )Weight Bearing Status: (WBAT) Subjective: Patient unable to verbalize with ETT in place. Nods yes/no appropriately to communicate. At start of therapy session, patient found in bed and with no alarm. Pain: Patient has c/o pain in back, not rated. RN aware. Activities of Daily Living Feeding:NT Grooming/Bathing: Minimal assist for facial hygiene, light UB bathing, and to comb hair seated at EOB Upper Extremity Dressing: Maximal assist to manage gown over shoulders and during transfers Lower Extremity Dressing: Maximal assist to don/doff socks Toileting/Transfers: not tested - no toileting needs Mobility: Assist device: none Supine to/from Sit:Maximal assist of 2 Sit to/from Stand: not tested Bed to/from Chair: not tested Functional Mobility: not tested Splint Issued/Checked: none Splint Check Completed: N/A Balance: Static Sitting: Fair minus, able to maintain balance this date with B/L UE supported on bed or withsupport for pulling. Completes abdominal strengthening exercises at EOB Dynamic Sitting: poor Static Standing: not tested Dynamic Standing: not tested Activity Tolerance: Patient's activity tolerance: poor, RT present to assist with oxygen needs on ventilator and secretions Cognitive/Perceptual: A&O x self and hospital. Appropriate in conversation via gesturing and nodding yes/no. Follows 1-step commands 100% with fair attention to task. Fair insight and safety awareness this date. Treatment/Therapeutic Exercise: Treatment session this date focused on ADL training Cognitive retraining Functional transfer training Endurance training Energy conservation Safety awareness HEP training Patient/Family Teaching: Exercise, Mobility and Self care Equipment Issued: none Update Treatment Plan/Goals : Pt continues to benefit from skilled OT to improve independence with activities of daily living, increase strength, endurance, range of motion and decrease pain. Continue OT goals per POC. Short Term Goals: Patient will perform grooming With min assist, Patient will perform lower extremity dressing With mod assist, Patient will perform supine to sit With mod assist and X 2 and Patient will perform AROM Independently Halfway Goal:Patient to discharge to appropriate next level of inpatient care If patient is discharged from the facility, this note serves as a discharge note if further occupational therapy visits did not occur. Following therapy session, patient left in bed, with call light within reach and with RN, Glendy aware. Gabriela Isaacs OT * Beata Shafer, PT - 09/13/2017 9:30 AM CDT [facility] PhysicalTherapy Progress Note Co-tx with OT and RT Patient: José Miguel Keys Med Record Number: [id number] Date of : 1950 Age: 66 y.o. Discharge Recommendation: Recommendation: Patient will benefit from inpatient multidisciplinary therapies Plan: 5 Times/Week Subjective: Pt nods agreement to PT tx with encouragement. Pt is nonverbal 2/2 ETT. Patient is not ambulatory at this time. Mental Status: alert, follows 1 step commands 100% At start of therapy session, patient found in bed and with no alarm. Pain: Patient nods head 'yes' to indicate back pain, unable to quantify. Nurse notified. Weight Bearing Status: WBAT Mobility: Rolling: Moderate assist Supine to Sit: Moderate assist of 2 with HOB elevated Sit to Supine: Maximal assist of 2 with HOB flat Sit to Stand:not tested Bed to Chair: not tested Gait: Pt is not ambulatory at this time Balance: Static Sitting: poor plus Dynamic sitting: poor Static Standing: not tested Dynamic Standing: not tested Vitals: BP HR Sp02 02 Device Rest: 106/62 89 91% vent AC Fi02 40% PEEP 5 Ex/gait: 96% vent AC Fi02 40% PEEP 5 Post-tx: 88% vent AC Fi02 40% PEEP 5 RT present and provided 100% Fi02 as needed during peak activity Activity Tolerance: Patient's activity tolerance: poor Treatment/therapeutic Exercise: Pt seen for bed mobility supine<>sitting EOB with emphasis onlog rolling, static sitting balance training with TA isometrics, dynamic sitting balance training with BUE assist for anterior/posterior trunk leans, and BLE AROM therexs (AP, heel slides, LAQ x5 each). Patient/Family Teaching: Exercise and Mobility Patient demonstrated Fair understanding of instructions given. Short Term Goals: Goal Formation With patient/family Patient will transfer supine to/from sit With moderate assist and With assist of 2 Patient will transfer bed to/from chair With moderate assist and With assist of 2 Patient will sit on edge of bed With minimal assist Halfway Goal: Patient to discharge to appropriate next level of inpatient care. Update Treatment Plan: Continue per plan If patient is discharged from the facility, this note serves as a discharge note if further physical therapy visits did not occur. Following therapy session, patient left in bed, with call light within reach and with RN, Glendy aware. Beata Shafer, PT 09/13/2017 * Cleo Goodwin MD - 09/13/2017 8:08 AM CDT Otolaryngology/Head and Neck Surgery Resident Progress Note 09/13/2017 Admit Date: 09/06/2017 8:08 AM Hospital day: LOS: 7 days Subjective: No acute events overnight. AF VSS. Pt on PSV, PEEP 5, PS 12. Objective: Temp Min: 96.3 ??F (35.7 ??C) Max: 99.1 ??F (37.3 ??C), Pulse Min: 73 Max: 120, Resp Min: 9 Max: 39, BP Min: 52/38 Max: 146/93 I/O last 3 completed shifts: In: 981 Out: 3155 [Urine:3125; Drains:30] Physical Examination Constitutional: Not in distress, intubated, sedated CV: RRR Respiration: ETT in place, on PSV: PEEP 5, PS 12 Neck: Trachea midline, low larynx Extremities: Moving all extremities spontaneously Labs (Last 72 hours): Recent Labs Component Name 09/13/17 0517 WBC 8.9 RBC 2.95* HGB 8.5* HCT 27.6* PLT 213 Recent Labs Component Name 09/13/17 0702 09/13/17 0517 09/06/17 1621 GLU 101 96 - - NA - 139 - - K - - - 4.2 CL - 96* - - CO2 - 31* - - BUN - 26 - - CREATININE - 0.6 - - CALCIUM - 9.0 - - - = values in this interval not displayed. Assessment: José Miguel Keys is a 66 y.o. male with acute hypoxic respiratory failure. ENT consulted for trach placement. Plan: - to OR this week for trach, added on for today - consent obtained - NPO, hold anticoagulation - will alert primary team if OR confirmed for today - page ENT with questions/concerns Cleo Goodwin MD Anesthesiology PGY-1 09/13/2017 8:14 AM * Veronica Costello MD - 09/13/2017 7:32 AM CDT MEDICAL INTENSIVE CARE UNIT DAILY PROGRESS NOTE 09/12/17 ?? Admit date: 09/06/2017 ?? Subjective: ?? Briefly, José Miguel Keys was admitted to the ICU for acute hypoxic respiratory failure. He has had multiple ICU admissions. He was found to have significant mucous plugging. Currently being treated with ceftaroline and flagyl for MRSA discitis. He was initially intubated in the ED for hypoxia. He was found to have significant mucous plugging on bronchoscopy. He had a left sided pleural drain placed in left fluid effusion with alteplase administered through the catheter to assist with resolution of loculations. ?? Events in the past 24 hours: NO significant events overnight. Stable on the ventilator. ?? ICU Timeline: 09/06 admitted to ICU intubated and on low dose vasopressors 09/07 PSV trial, CT chest to eval L pleural effusion, extubation 09/08left pigtail drain placed. Tried tPa + dornase for 3 doses. Minimal response. 09/09 intubated for hypoxia. Bronchoscopy performed. Thick clear secretions L > R suctioned clear. 09/10: Sat out in the chair for nearly 5 hours. NO significant changes of hypoxia events. 09/11: patient tolerating vent well, plan for possible PERC trach tomorrow 09/12: planned for bedside perc trach however, bedside ultrasound revealed midline vessels prompting ENT consult for OR trach. ?? Objective: ?? Current vital signs Patient Vitals for the past 6 hrs: Temp Pulse Resp BP BP Method 09/12/17 2200 - 86 15 93/61 Automatic 09/12/176 - 16 - - 09/12/17 210 - 86 - - - 09/12/17 2100 - 85 16 97/70 Automatic 09/12/17 2000 97.7 ??F (36.5 ??C) 90 17 104/63 Automatic 09/12/17 1900 - 86 17 99/62 - 09/12/17 1820 - 95 25 - - 09/12/17 1800 - 85 12 95/60 - 09/12/17 1744 - 83 14 - - 09/12/17 1700 - 88 19 106/62 - 09/12/17 1644 - 84 15 103/73 - Input/Output Intake/Output Summary (Last 24 hours) at 09/12/17 2233 Last data filed at 09/12/17 2200 Gross per 24 hour Intake 641 ml Output 2450 ml Net -1809 ml ?? Physical Exam ?? General: intubated, awake, follows commands ?? HEENT: PERRL, NCAT, ETT ?? Neck: supple, No LAD ?? Chest: CTA B/L. Coarse breath sounds bilaterally with diminished breath sounds left lower lung, pleural catheter in place ?? Heart: tachycardia, Normal S1, S2. No murmur, gallops and/or rubs. ?? Abdomen: + BS, soft, NT, ND. hepatosplenomegaly ?? Extremities: No edema. Good distal pulses. ?? Neuro: AAOx3, non-focal ? Data Review: ?? CBC: Recent Labs Component Name 09/12/17 0514 09/11/17 0437 09/10/17 0504 WBC 9.5 11.0* 11.0* HGB 8.6* 8.7* 8.0* MCV 96.3 95.8 94.8 PLT 185 234 249 BMP: Recent Labs Component Name 09/12/17 1832 09/12/17 1333 09/12/17 0514 09/11/17 0437 09/10/17 0504 09/06/17 1621 09/06/17 1211 07/29/17 1130 NA - - 139 - 142 - 141 - - - - - K - - - - - - - - 4.2 3.8 - 3.3* CL - - 98 - 101 - 103 - - - - - CO2 - - 28 - 25 - 28 - - - - - BUN - - 35* - 39* - 36* - - - - - CREATININE - - 0.7 - 0.8 - 0.7 - - - - - GLU 106 99 96 - 123* - 129* - - - - - - = values in this interval not displayed. Recent Labs Component Name 09/12/17 0514 09/11/17 0437 09/10/17 0504 09/07/17 0428 09/04/17 0447 09/03/17 0431 CALCIUM 8.6 8.9 8.6 - 8.4 - 8.4 8.6 PHOS - - - - 2.9 - 2.9 2.8 - = values in this interval not displayed. LFT: Recent Labs Component Name 09/06/17 11509/04/1744609/03/17 0431 07/15/17 0504 PROT 6.2 5.3* 5.4* - 6.1 ALB 1.8* 1.5* 1.5* - 2.4* ALKPHOS 204* 190* 212* - 157* AST 21 27 26 - 34 ALT 10 12 12 - 25 TBILI 0.3 0.3 0.3 - 1.8* GGT - - - - 66* - = values in this interval not displayed. Coagulation: Recent Labs Component Name 09/11/17 04309/09/17 0422 09/07/178 PT 14.1 15.8* 18.8* INR 1.1 1.3 1.6 Lab results smartLinks are not currently available Cardiac markers: Recent Labs Component Name 09/06/17 1157 08/26/17 1420 TROPONINI 0.027 <0.010 ABGs: Recent Labs Component Name 09/10/17 0557 PO2ART 80 [id number] 44 [id number] 30.0* ?? Radiology: ?? CXR this morning with increased RLL atelectasis with LLL clearing. Pleural drain in appropriate position. ?? Assessment: ?? 1. Acute hypoxic respiratory failure with mucous plugging 2. 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 Left pleural Effusion 4. Atrial Fibrillation ?? Plan: ?? Neuro/Psych: - analgesia for chronic lumbago - oxycodone 5mg PO q4 PRN and fentanyl with lidoderm patches PRN for breakthrough ?? Cardiovascular: - on ASA 81mg and Lipitor 20mg PO qD Atrial Fibrillation - amionadrone BID ?? Pulmonary: Acute Hypoxic respiratory failure - continue on: Ventilation Rate Set (bpm): 16 bpm Ventilation Rate Observed (bpm): 12 bpm Tidal Volume Set (mL): 500 ML Peak Inspiratory Pressure Observed (cm H2O): 17 cm H2O PEEP/CPAP: 5 cm H20 Pressure Support (cm H2O): 12 cm H2O O2 % (FiO2): 40 % - aggressive Chest PT with Bed and IPv q 4 hours - albuterol nebs q4 - plan for ENTTrach today Left pleural effusion - s/p L pleural 14Fr catheter - minimal drainage overnight. - Thoracic surgery consult: no surgical management for effusion ?? GI/Nutrition: - dobhoff in place - continue tube feeds - bowel regime added given last BM was a few days ago. ?? Renal/Electrolytes/Acid-Base: - replace lytes as needed ?? Infectious Disease: - on ceftaroline and flagyl for MRSA Discitis, will continue ceftaroline until pleural drain removed - macias culture if febrile - transudative pleural fluid ?? Hematology/Oncology: - INR trended down ?? Endocrine: - SS insulin - continue synthroid ?? Musculoskeletal/Skin: PT/OT ?? GI prophylaxis:pepcid DVT prophylaxis:SCDs, lovenox Lines: PIV, umaña Diet: on hold for ENT Trach Code Status: full Disposition: continued ICU care Veronica Costello MD 09/12/2017 Associated attestation - Yogesh Duncan MD - 09/13/2017 4:54 PM CDT MICU Attending Note: Patient seen and examined with the MICU team. Please see note for further details. I confirm history, exam, assessment and plan except as I have noted below: Interval History: Vent requirements stable. Secretions minimal. ROS: Not obtained due to intubation Exam: Vitals: 09/13/17 1351 09/13/17 1400 09/13/17 1402 09/13/17 1500 BP: 100/60 109/68 Pulse: 82 91 81 Resp: 24 16 16 Temp: SpO2: 98% 98% 97% 95% Weight: Estimated body mass index is 29.83 kg/(m^2) as calculated from the following: Height as of this encounter: 1.778 m (5' 10 ). Weight as of this encounter: 94.3 kg (207 lb 14.3 oz). AA, following commands, no new neurological deficits CVS: S1S2+, RRR RS: BL CTA Abd: soft NT ND BS+ Ext: no edema Labs: CBC: Recent Labs Component Name 09/13/17 0517 09/12/17 0514 09/11/17 0437 WBC 8.9 9.5 11.0* HGB 8.5* 8.6* 8.7* HCT 27.6* 28.8* 29.4* PLT 213 185 234 BMP: Recent Labs Component Name 09/13/17 1114 09/13/17 0702 09/13/17 0517 09/12/17 0514 09/11/17 0437 09/07/17 0428 09/06/17 1621 09/06/17 1211 09/04/17 0447 09/03/17 0431 07/29/17 1130 NA - - 139 - 139 - 142 - 140 - - - 141 140 - - K - - - - - - - - - 4.2 3.8 - - - - 3.3* CL - - 96* - 98 - 101 - 106 - - - 107 107 - - CO2 - - 31* - 28 - 25 - 25 - - - 27 27 - - BUN - - 26 - 35* - 39* - 24 - - - 11 13 - - CREATININE - - 0.6 - 0.7 - 0.8 - 0.7 - - - 0.6 0.6 - - CALCIUM - - 9.0 - 8.6 - 8.9 - 8.4 - - - 8.4 8.6 - - GLU 108 101 96 - 96 - 123* - 156* - - - 87 150* - - PHOS - - - - - - - - 2.9 - - - 2.9 2.8 - - - = values in this interval not displayed. Hepatic: Recent Labs Component Name 09/06/17 1157 09/04/17 0447 09/03/17 0431 ALT 10 12 12 AST 21 27 26 TBILI 0.3 0.3 0.3 PROT 6.2 5.3* 5.4* ALB 1.8* 1.5* 1.5* ALKPHOS 204* 190* 212* Coagulation: Recent Labs Component Name 09/11/17 0437 09/09/17 0422 09/07/17 0428 PT 14.1 15.8* 18.8* INR 1.1 1.3 1.6 Cardiac Markers: Recent Labs Component Name 09/06/17 1157 08/26/17 1420 TROPONINI 0.027 <0.010 ABGs: Recent Labs Component Name 09/10/17 0557 09/09/17 0841 09/09/17 0422 PHART 7.45 7.51* 7.41 PO2ART 80 274* 65* [id number] 44 38 45 BEART 5.4* 5.7* 2.4* Assessment: Active Hospital Problems Diagnosis Date Noted ??? Acute respiratory failure with hypoxia 08/29/2017 ??? Methicillin resistant Staphylococcus aureus infection 08/29/2017 ??? Discitis of lumbar region 08/29/2017 Plan: - continue on volume assist control. Trach planned today by ENT - consult GI for PEG - continue aggressive pulmonary toileting - continue ceftaroline - keep the chest tube in the left side for now. We will consider removing after trach displaced. - Rest of the plan is for the resident's note Critical Care Attending: Dr. Yogesh Duncan MD, MPH * Tessie Harris, CHRIS - 09/12/2017 5:05 PM CDT SW following pt for discharge planning. Pt and family would prefer LTAC placement at [facility]. Family does not want pt to return to [facility]. SW to submit LTAC referral to [facility] and continue following. Tessie Harris 09/12/2017 5:08 PM [phone] * Beata Shafer, PT - 09/12/2017 3:23 PM CDT [facility] Department of Physical Medicine & Rehabilitation Progress Note Patient: José Miguel Keys Med Record Number: [id number] Date of : 1950 Age: 66 y.o. Per discussion with MICU 3, cancel therapy this date 2/2 pt going for tracheostomy. Will continue to follow. Beata Shafer, PT 09/12/2017 3:23 PM * Gabriela Isaacs, OT - 09/12/2017 3:11 PM CDT Occupational Therapy [facility] Department of Physical Medicine & Rehabilitation Progress Note Patient: José Miguel Keys Med Record Number: [id number] Date of : 1950 Age: 66 y.o. Per discussion with MD (MICU 3), cancel therapy this date due to procedure plans today (tracheostomy). Will follow up tomorrow, 09/13. Gabriela Isaacs, GABY 09/12/2017 3:12 PM * Ирина Barrientos, RD/LD - 09/12/2017 1:57 PM CDT Initial Nutrition Assessment Nutrition Recommendations: ?? After trach resume TF ?? Promote at 70 ml/hr. ?? 2 pkt of beneprotein QID with 150 ml water ?? Provides 1872 kcal, 153 g protein, 2010 ml free water. (TF+Beneprotein+water) Comments: Pt remains on vent, TF held today for trach. Pt has been tolerating TF well per RN. +BM 09/11, residuals WNL. Assessment: Med/Surg History and Clinical Diagnoses: acute hypoxic hypercapnic respiratory failure PMH COPD, CAD, DM Height: 5' 10 (177.8 cm) Weight: 207 lb 14.3 oz (94.3 kg) BMI: Body mass index is 29.83 kg/(m^2). BMI Range: Overweight Unintended weight change: Severe weight loss Weight Loss: > 7.5% x 3 months Diet order accuracy Current diet order: NPO Current tube feeding order: Promote at 70ml/hr + 2 Beneprotein QID (on hold for trach) Nutrition recommendation: agree with current nutrition order P.O.Intake for the past 48 hrs: No Data Recorded GI Concerns: None Chewing/Swallowing: Other (Comment) (vent) Pain affecting intake: No Estimated Needs: KCAL: 1301-2064 ([employer] 2010-obese/vent (97.3kg)) Protein (g): 135-165 (1.8-2.2g/kg (IBW) obese/vent) Fluid (ml): 2400 (25ml/kg (97.3kg)) Needs based on: Kcal/kg- (Comment) Recommended Access Route: TF Pertinent Nutrition Labs: Potassium 5 Pertinent Nutrition Medications: Colace, furosemide, senna Skin: Exceptions to WDL per nursing assess Education needed: None Nutrition Care Process (1) Nutrition Diagnostic Statement: Swallowing difficulty related to:: mechanical ventilation as evidenced by:: --- (intubation) Nutrition Intervention: Enteral nutrition: Monitoring: TF, Labs, GI, Wt Evaluation: Diagnostic Statement #1 Goals: Nutrition Goal: Initiate oral/enteral/parenteral nutrition by: (09/12 after procedure) Nutrition Goal Timeframe: Within 24 - 72 hours Nutrition Goal Progress: Continue with current goal Ирина Barrientos RD/SALVADOR * Dominik Mak RN - 09/12/2017 11:49 AM CDT Problem: Aspiration Precautions Goal: Patient's risk of aspiration is minimized Outcome: Ongoing Patient head of bed 30-45 degrees. Dominik Mak RN * Dominik Mak RN - 09/12/2017 11:46 AM CDT Problem: Fall Risk Goal: Patient will remain free of falls Outcome: Ongoing Patient in bed, reminded to use call light for assistance. Nodded head with understanding. Dominik Mak, RN * Vita Troncoso MD - 09/12/2017 8:16 AM CDT MEDICAL INTENSIVE CARE UNIT DAILY PROGRESS NOTE 09/12/17 ?? Admit date: 09/06/2017 ?? Subjective: ?? Briefly, José Miguel Keys was admitted to the ICU for acute hypoxic respiratory failure. He has had multiple ICU admissions. He was found to have significant mucous plugging. Currently being treated with ceftaroline and flagyl for MRSA discitis. He was initially intubated in the ED for hypoxia. He was found to have significant mucous plugging on bronchoscopy. He had a left sided pleural drain placed in left fluid effusion with alteplase administered through the catheter to assist with resolution of loculations. ?? Events in the past 24 hours: NO significant events overnight. Stable on the ventilator. ?? ICU Timeline: 09/06 admitted to ICU intubated and on low dose vasopressors 09/07 PSV trial, CT chest to eval L pleural effusion, extubation 09/08left pigtail drain placed. Tried tPa + dornase for 3 doses. Minimal response. 09/09 intubated for hypoxia. Bronchoscopy performed. Thick clear secretions L > R suctioned clear. 09/10: Sat our in the chair for nearly 5 hours. NO significant changes of hypoxia events. 09/11: patient tolerating vent well, plan for possible PERC trach tomorrow ?? Objective: ?? Current vital signs Patient Vitals for the past 6 hrs: Temp Pulse Resp BP BP Method 09/12/17 1351 - 82 - - - 09/12/17 1350 - 86 13 - - 09/12/17 1300 - 82 16 109/66 - 09/12/17 1200 97.9 ??F (36.6 ??C) 86 15 99/67 Automatic 09/12/17 1100 - 83 19 91/59 - 09/12/17 1000 - 87 17 109/69 - 09/12/17 0945 - - 15 - - 09/12/17 0900 - 85 11 107/65 - Input/Output Intake/Output Summary (Last 24 hours) at 09/12/17 1417 Last data filed at 09/12/17 1223 Gross per 24 hour Intake 2315 ml Output 2050 ml Net 265 ml ?? Physical Exam ?? General: intubated, awake, follows commands ?? HEENT: PERRL, NCAT, ETT ?? Neck: supple, No LAD ?? Chest: CTA B/L. Coarse breath sounds bilaterally with diminished breath sounds left lower lung, pleural catheter in place ?? Heart: tachycardia, Normal S1, S2. No murmur, gallops and/or rubs. ?? Abdomen: + BS, soft, NT, ND. hepatosplenomegaly ?? Extremities: No edema. Good distal pulses. ?? Neuro: AAOx3, non-focal ? Data Review: ?? CBC: Recent Labs Component Name 09/12/1751309/11/1743609/10/17 0504 WBC 9.5 11.0* 11.0* HGB 8.6* 8.7* 8.0* MCV 96.3 95.8 94.8 PLT 185 234 249 BMP: Recent Labs Component Name 09/12/17 1333 09/12/17 0514 09/12/17 0512 09/11/17 0437 09/10/17 0504 09/06/17 1621 09/06/17 1211 07/29/17 1130 NA - 139 - - 142 - 141 - - - - - K - - - - - - - - 4.2 3.8 - 3.3* CL - 98 - - 101 - 103 - - - - - CO2 - 28 - - 25 - 28 - - - - - BUN - 35* - - 39* - 36* - - - - - CREATININE - 0.7 - - 0.8 - 0.7 - - - - - GLU 99 96 113 - 123* - 129* - - - - - - = values in this interval not displayed. Recent Labs Component Name 09/12/17 0514 09/11/17 0437 09/10/17 0504 09/07/17 0428 09/04/17 0447 09/03/17 0431 CALCIUM 8.6 8.9 8.6 - 8.4 - 8.4 8.6 PHOS - - - - 2.9 - 2.9 2.8 - = values in this interval not displayed. LFT: Recent Labs Component Name 09/06/17 1157 09/04/17 0447 09/03/17 0431 07/15/17 0504 PROT 6.2 5.3* 5.4* - 6.1 ALB 1.8* 1.5* 1.5* - 2.4* ALKPHOS 204* 190* 212* - 157* AST 21 27 26 - 34 ALT 10 12 12 - 25 TBILI 0.3 0.3 0.3 - 1.8* GGT - - - - 66* - = values in this interval not displayed. Coagulation: Recent Labs Component Name 09/11/17 0437 09/09/17 0422 09/07/17 0428 PT 14.1 15.8* 18.8* INR 1.1 1.3 1.6 Lab results smartLinks are not currently available Cardiac markers: Recent Labs Component Name 09/06/17 1157 08/26/17 1420 TROPONINI 0.027 <0.010 ABGs: Recent Labs Component Name 09/10/17 0557 PO2ART 80 [id number] 44 [id number] 30.0* ?? Radiology: ?? CXR this morning with increased RLL atelectasis with LLL clearing. Pleural drain in appropriate position. ?? Assessment: ?? 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 Plan: ?? Neuro/Psych: - analgesia for chronic lumbago - oxycodone 5mg PO q4 PRN and fentanyl with lidoderm patches PRN for breakthrough ?? Cardiovascular: - on ASA 81mg and Lipitor 20mg PO qD Atrial Fibrillation - amionadrone BID ?? Pulmonary: Acute Hypoxic respiratory failure - continue on: Ventilation Rate Set (bpm): 16 bpm Ventilation Rate Observed (bpm): 11 bpm Tidal Volume Set (mL): 500 ML Peak Inspiratory Pressure Observed (cm H2O): 22 cm H2O PEEP/CPAP: 8 cm H20 Pressure Support (cm H2O): 14 cm H2O O2 % (FiO2): 40 % - CXR in AM - aggressive Chest PT with Bed and IPv q 4 hours - albuterol nebs q4 - plan for bedside Perc Trach today and removal of pleural drain Left pleural effusion - s/p L pleural 14Fr catheter - minimal drainage overnight. - Thoracic surgery consult: no surgical management for effusion ?? GI/Nutrition: - dobhoff in place - continue tube feeds - bowel regime added given last BM was a few days ago. ?? Renal/Electrolytes/Acid-Base: - replace lytes as needed ?? Infectious Disease: - on ceftaroline and flagyl for MRSA Discitis, will continue ceftaroline until pleural drain removed - macias culture if febrile - transudative pleural fluid ?? Hematology/Oncology: - INR trended down ?? Endocrine: - SS insulin - continue synthroid ?? Musculoskeletal/Skin: PT/OT ?? GI prophylaxis:pepcid DVT prophylaxis:SCDs, lovenox Lines: PIV, umaña Diet: continue Code Status: full Disposition: continued ICU care Vita Troncoso MD 09/12/2017 2:57 PM Associated attestation - Yogesh Duncan MD - 09/12/2017 3:52 PM CDT MICU Attending Note: Patient seen and examined with the MICU team. Please see note for further details. I confirm history, exam, assessment and plan except as I have noted below: Interval History: doing well on vent with normal airway pressures. Hemodynamically stable. The patient's minimal. Patient evaluated for bedside trach and found to have blood vessels in the pathway. ROS: Not obtained due to intubation Exam: Vitals: 09/12/17 1350 09/12/17 1351 09/12/17 1400 09/12/17 1500 BP: 117/89 102/65 Pulse: 86 82 86 85 Resp: 13 18 12 Temp: SpO2: 100% 100% 100% 100% Weight: Estimated body mass index is 29.83 kg/(m^2) as calculated from the following: Height as of this encounter: 1.778 m (5' 10 ). Weight as of this encounter: 94.3 kg (207 lb 14.3 oz). AA, following commands, no new neurological deficits CVS: S1S2+, RRR RS: BL CTA Abd: soft NT ND BS+ Ext: no edema Labs: CBC: Recent Labs Component Name 09/12/17 0514 09/11/17 0437 09/10/17 0504 WBC 9.5 11.0* 11.0* HGB 8.6* 8.7* 8.0* HCT 28.8* 29.4* 27.1* PLT 185 234 249 BMP: Recent Labs Component Name 09/12/17 1333 09/12/17 0514 09/12/17 0512 09/11/17 0437 09/10/17 0504 09/07/17 0428 09/06/17 1621 09/06/17 1211 09/04/17 0447 09/03/17 0431 07/29/17 1130 NA - 139 - - 142 - 141 - 140 - - - 141 140 - - K - - - - - - - - - 4.2 3.8 - - - - 3.3* CL - 98 - - 101 - 103 - 106 - - - 107 107 - - CO2 - 28 - - 25 - 28 - 25 - - - 27 27 - - BUN - 35* - - 39* - 36* - 24 - - - 11 13 - - CREATININE - 0.7 - - 0.8 - 0.7 - 0.7 - - - 0.6 0.6 - - CALCIUM - 8.6 - - 8.9 - 8.6 - 8.4 - - - 8.4 8.6 - - GLU 99 96 113 - 123* - 129* - 156* - - - 87 150* - - PHOS - - - - - - - - 2.9 - - - 2.9 2.8 - - - = values in this interval not displayed. Hepatic: Recent Labs Component Name 09/06/17 1157 09/04/1744609/03/17 0431 ALT 10 12 12 AST 21 27 26 TBILI 0.3 0.3 0.3 PROT 6.2 5.3* 5.4* ALB 1.8* 1.5* 1.5* ALKPHOS 204* 190* 212* Coagulation: Recent Labs Component Name 09/11/17 0437 09/09/17 0422 09/07/17 0428 PT 14.1 15.8* 18.8* INR 1.1 1.3 1.6 Cardiac Markers: Recent Labs Component Name 09/06/17 1157 08/26/17 1420 TROPONINI 0.027 <0.010 ABGs: Recent Labs Component Name 09/10/17 0557 09/09/17 0841 09/09/17 0422 PHART 7.45 7.51* 7.41 PO2ART 80 274* 65* [id number] 44 38 45 BEART 5.4* 5.7* 2.4* Assessment: Active Hospital Problems Diagnosis Date Noted ??? Acute respiratory failure with hypoxia 08/29/2017 ??? Methicillin resistant Staphylococcus aureus infection 08/29/2017 ??? Discitis of lumbar region 08/29/2017 Plan: - continue on volume assist control. Consult ENT for trach - consult GI for PEG - continue aggressive pulmonary toileting - continue ceftaroline - keep the chest tube in the left side for now. We will consider removing after trach displaced. - Rest of the plan is for the resident's note Pt. is at high risk for complications and morbidity or mortality Pt. is critically ill with vital organ impairment or failure There is high probability of imminent or life threatening deterioration in the patient???s condition Time involved in the performance of separately billable procedures, teaching, reviewing education material was not counted towards critical care time. Patient is unable or incompetent to participate in giving a history and/or making decisions and discussion is necessary for determining treatment decisions. Overall critical care time provided: 32 Mins. Critical Care Attending: Dr. Yogesh Duncan MD, MPH * Janell Franklin RCP - 09/11/2017 3:41 PM CDT Pt remains on PSV, kip well. Ambu bag at bedside. Oral care done this AM. HOB>30 degrees. Pt has #8.0 ETT tube secured at 23 at he gums & inflated to 26 cmH2O. DuoNeb & IPV given Q4. Janell Franklin, Respiratory Care Practitioner 09/11/2017 3:42 PM * Jason Nash MD - 09/11/2017 12:50 PM CDT ICU progress Note: I saw and evaluated the patient, and agree with the Dr. Costello's findings and plan except for changes as per my note. See resident's note for details. In addition I note- Interval History: - no new complaints over the night - awake and following instructions - no significant out-put from the CT tube Chart and medications reviewed Vitals: 09/11/17 0900 09/11/17 1000 09/11/17 1100 09/11/17 1200 BP: 114/71 113/64 103/71 99/62 Pulse: 89 90 87 86 Resp: 20 21 13 12 Temp: 98.5 ??F (36.9 ??C) SpO2: 99% 99% 99% 99% Weight: Exam: Intubated; following instructions Afebrile Normal MM; Non-icterus PERRL, moves all ext. non focal deficit CVS: S1S2+, RRR Lungs: no crackles or wheezing; CT with serosdangious fluid; tidaling Abd: soft NT ND BS+ Ext: no edema; normal peripheral pulses Lab reviewed CXR - RLL atelectasis, lt aeration slight improved. ETT and CT in good position ASSESSMENT AND PLAN: ?? Acute hypoxic resp failure ?? Lung atelectasis ?? Recurrent left pleural effusion s/p CT placement ?? History of disseminate MRSA infection ?? History of diskitis Neuro: - neuro checks; - Sedation/pain: fentanyl drip; Goal RASS 0 - Oxycodone tabs Respiratory: - Vent Buddle: HOB>30; - Monitor for Respiratory distress, - vent support; plan for tracheostomy to facilitate the pulm toileting - to d/c CT in AM depending on out-put Cardiovascular/Hemodynamics: - A.fib - rate controlled with amiodarone; off anticoagulation - Hemodynamic monitoring. Goal MAP ~65mmHg - CAD on ASA, Statin; GI: - Gi prophylaxis - Nutrition: tube feeds Renal/lytes: - lasix again today - Strict I/O. Monitor UOP. - Replace electrolytes as needed. Keep K+3.5-4.0 meq,Mg~2.0 mg/dl,Po4-3.0-4.0 mmol/l Heme: - Monitor H & H.Transfuse if Hb <7.0 gm/dl ID: - continue current antibiotics; flagyl and ceftaroline to d/c after D/C the CT - Macias culture if febrile. Endo: - BGM monitoring with goal < 180 mg/dl Prophylaxis: a) Stress Ulcer: H2 fe (b) DVT: Lovenox/SCD Access/ Lines: PIV Disposition: ICU monitoring Family Communication: I reviewed plan of care with patient and family members. Overall critical care time provided: Mins. Jason Nash MD 09/11/2017 * Veronica Costello MD - 09/11/2017 6:57 AM CDT MEDICAL INTENSIVE CARE UNIT DAILY PROGRESS NOTE 09/11/17 ?? Admit date: 09/06/2017 ?? Subjective: ?? Briefly, José Miguel Keys was admitted to the ICU for acute hypoxic respiratory failure. He has had multiple ICU admissions. He was found to have significant mucous plugging. Currently being treated with ceftaroline and flagyl for MRSA discitis. He was initially intubated in the ED for hypoxia. He was found to have significant mucous plugging on bronchoscopy. He had a left sided pleural drain placed in left fluid effusion with alteplase administered through the catheter to assist with resolution of loculations. ?? Events in the past 24 hours: NO significant events overnight. Stable on the ventilator. ?? ICU Timeline: 09/06 admitted to ICU intubated and on low dose vasopressors 09/07 PSV trial, CT chest to eval L pleural effusion, extubation 09/08left pigtail drain placed. Tried tPa + dornase for 3 doses. Minimal response. 09/09 intubated for hypoxia. Bronchoscopy performed. Thick clear secretions L > R suctioned clear. 09/10: Sat our in the chair for nearly 5 hours. NO significant changes of hypoxia events. ?? Objective: ?? Current vital signs Patient Vitals for the past 6 hrs: Temp Pulse Resp BP 09/11/17 0600 - 89 15 105/60 09/11/17 0544 - 81 16 - 09/11/17 0500 - 89 16 103/63 09/11/17 0400 98.6 ??F (37 ??C) 87 14 106/69 09/11/17 0300 - 89 13 92/57 09/11/17 0200 - 89 18 112/60 09/11/17 0100 - 88 13 95/59 Input/Output Intake/Output Summary (Last 24 hours) at 09/11/17 0658 Last data filed at 09/11/17 0600 Gross per 24 hour Intake 3265 ml Output 3260 ml Net 5 ml ?? Physical Exam ?? General: intubated, awake, follows commands ?? HEENT: PERRL, NCAT, ETT ?? Neck: supple, No LAD ?? Chest: CTA B/L. Coarse breath sounds bilaterally with deminished breath sounds left lower lung, pleural catheter in place ?? Heart: tachycardia, Normal S1, S2. No murmur, gallops and/or rubs. ?? Abdomen: + BS, soft, NT, ND. hepatosplenomegaly ?? Extremities: No edema. Good distal pulses. ?? Neuro: AAOx3, non-focal ? Data Review: ?? CBC: Recent Labs Component Name 09/11/17 04309/10/17 0504 08/09/17 0456 WBC 11.0* 11.0* 18.1* HGB 8.7* 8.0* 6.8* MCV 95.8 94.8 88.5 PLT 234 249 197 BMP: Recent Labs Component Name 09/11/17 0554 09/11/17 0437 09/11/17 0001 09/10/17 0504 09/09/17 1031 09/06/17 1621 09/06/17 1211 07/29/17 1130 NA - 142 - - 141 142 - - - - - K - - - - - - - 4.2 3.8 - 3.3* CL - 101 - - 103 105 - - - - - CO2 - 25 - - 28 26 - - - - - BUN - 39* - - 36* 36* - - - - - CREATININE - 0.8 - - 0.7 0.8 - - - - - GLU 139* 123* 116* - 129* 80 - - - - - - = values in this interval not displayed. Recent Labs Component Name 09/11/17 0437 09/10/17 0504 09/09/17 1031 09/07/17 0428 09/04/17 0447 09/03/17 0431 CALCIUM 8.9 8.6 8.5 - 8.4 - 8.4 8.6 PHOS - - - - 2.9 - 2.9 2.8 - = values in this interval not displayed. LFT: Recent Labs Component Name 09/06/17 1157 09/04/17 0447 09/03/17 0431 07/15/17 0504 PROT 6.2 5.3* 5.4* - 6.1 ALB 1.8* 1.5* 1.5* - 2.4* ALKPHOS 204* 190* 212* - 157* AST 21 27 26 - 34 ALT 10 12 12 - 25 TBILI 0.3 0.3 0.3 - 1.8* GGT - - - - 66* - = values in this interval not displayed. Coagulation: Recent Labs Component Name 09/11/17 0437 09/09/17 0422 09/07/17 0428 PT 14.1 15.8* 18.8* INR 1.1 1.3 1.6 Lab results smartLinks are not currently available Cardiac markers: Recent Labs Component Name 09/06/17 1157 08/26/17 1420 TROPONINI 0.027 <0.010 ABGs: Recent Labs Component Name 09/10/17 0557 PO2ART 80 [id number] 44 [id number] 30.0* ?? Radiology: ?? CXR this morning with increased RLL atelectasis with LLL clearing. Pleural drain in appropriate position. ?? Assessment: ?? 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 Plan: ?? Neuro/Psych: - analgesia for chronic lumbago - oxycodone 5mg PO q4 PRN and fentanyl with lidoderm patches PRN for breakthrough ?? Cardiovascular: - on ASA 81mg and Lipitor 20mg PO qD Atrial Fibrillation - amionadrone BID ?? Pulmonary: Acute Hypoxic respiratory failure - continue on: Ventilation Rate Set (bpm): 16 bpm Ventilation Rate Observed (bpm): 16 bpm Tidal Volume Set (mL): 500 ML Peak Inspiratory Pressure Observed (cm H2O): 24 cm H2O PEEP/CPAP: 10 cm H20 Pressure Support (cm H2O): 14 cm H2O O2 % (FiO2): 40 % - will redose Lasix 20mg IV x 2 doses today - CXR in AM - aggressive Chest PT with Bed and IPv q 4 hours - albuterol nebs q4 - plan for bedside Perc Trach tomorrow and removal of pleural drain Left pleural effusion - s/p L pleural 14Fr catheter - minimal drainage overnight. - Thoracic surgery consult: no surgical management for effusion ?? GI/Nutrition: - dobhoff in place - continue tube feeds - bowel regime added given last BM was a few days ago. ?? Renal/Electrolytes/Acid-Base: - additional Lasix 20mg IV BID today - replace lytes as needed ?? Infectious Disease: - on ceftaroline and flagyl for MRSA Discitis, will continue ceftaroline until pleural drain removed - macias culture if febrile - transudative pleural fluid ?? Hematology/Oncology: - INR trended down ?? Endocrine: - SS insulin - continue synthroid ?? Musculoskeletal/Skin: PT/OT ?? GI prophylaxis:pepcid DVT prophylaxis:SCDs, lovenox Lines: PIV, umaña Diet: continue Code Status: full Disposition: continued ICU care Veronica Costello MD Pulmonary / Critical Care Fellow Division of Pulmonary, Critical Care, & Sleep Medicine [facility] Pager: [phone] * Hoa Taylor RN - 09/10/2017 11:51 PM CDT Problem: Potential for Central Venous Catheter Infection Goal: Signs and Symptoms of Central Venous Catheter Infection are Avoided Outcome: Goal Met Date Met: 09/10/17 * Veronica Costello MD - 09/10/2017 12:04 PM CDT MEDICAL INTENSIVE CARE UNIT DAILY PROGRESS NOTE 09/10/17 ?? Admit date: 09/06/2017 ?? Subjective: ?? Briefly, José Miguel Keys was admitted to the ICU for acute hypoxic respiratory failure. He has had multiple ICU admissions. He was found to have significant mucous plugging. Currently being treated with ceftaroline and flagyl for MRSA discitis. He was initially intubated in the ED for hypoxia. He was found to have significant mucous plugging on bronchoscopy. He had a left sided pleural drain placed in left fluid effusion with alteplase administered through the catheter to assist with resolution of loculations. ?? Events in the past 24 hours: NO significant events overnight. Stable on the ventilator. ?? ICU Timeline: 09/06 admitted to ICU intubated and on low dose vasopressors 09/07 PSV trial, CT chest to eval L pleural effusion, extubation 09/08left pigtail drain placed. Tried tPa + dornase for 3 doses. Minimal response. 09/09 intubated for hypoxia. Bronchoscopy performed. Thick clear secretions L > R suctioned clear. ?? Objective: ?? Current vital signs Patient Vitals for the past 6 hrs: Temp Pulse Resp BP BP Method 09/10/17 1500 99.1 ??F (37.3 ??C) 92 16 98/64 Automatic 09/10/17 1400 - 97 25 108/61 Automatic 09/10/17 1300 - 100 27 112/77 - 09/10/17 1259 - 102 26 - - 09/10/17 1200 - 103 23 120/85 Automatic 09/10/17 1132 98.4 ??F (36.9 ??C) 98 21 - - 09/10/17 1100 - 98 23 108/90 Automatic 09/10/17 1000 - 92 16 115/75 Automatic Input/Output Intake/Output Summary (Last 24 hours) at 09/10/17 1547 Last data filed at 09/10/17 1508 Gross per 24 hour Intake 1320 ml Output 1330 ml Net -10 ml ?? Physical Exam ?? General: intubated, awake, follows commands ?? HEENT: PERRL, NCAT, ETT ?? Neck: supple, No LAD ?? Chest: CTA B/L. Coarse breath sounds bilaterally with deminished breath sounds left lower lung, pleural catheter in place ?? Heart: tachycardia, Normal S1, S2. No murmur, gallops and/or rubs. ?? Abdomen: + BS, soft, NT, ND. hepatosplenomegaly ?? Extremities: No edema. Good distal pulses. ?? Neuro: AAOx3, non-focal ? Data Review: ?? CBC: Recent Labs Component Name 09/10/17 0504 08/09/17 0456 08/08/17 1022 WBC 11.0* 18.1* 13.6* HGB 8.0* 6.8* 7.8* MCV 94.8 88.5 88.0 PLT 249 197 207 BMP: Recent Labs Component Name 09/10/17 1257 09/10/17 0550 09/10/17 0504 09/09/17 1031 09/09/17 0422 09/06/17 1621 09/06/17 1211 07/29/17 1130 NA - - 141 142 140 - - - - - K - - - - - - 4.2 3.8 - 3.3* CL - - 103 105 104 - - - - - CO2 - - 28 26 24 - - - - - BUN - - 36* 36* 35* - - - - - CREATININE - - 0.7 0.8 0.8 - - - - - GLU 141* 146* 129* 80 238* - - - - - - = values in this interval not displayed. Recent Labs Component Name 09/10/17 0504 09/09/17 1031 09/09/17 0422 09/07/17 0428 09/04/17 0447 09/03/17 0431 CALCIUM 8.6 8.5 8.9 8.4 - 8.4 8.6 PHOS - - - 2.9 - 2.9 2.8 - = values in this interval not displayed. LFT: Recent Labs Component Name 09/06/17 1157 09/04/17 0447 09/03/17 0431 07/15/17 0504 PROT 6.2 5.3* 5.4* - 6.1 ALB 1.8* 1.5* 1.5* - 2.4* ALKPHOS 204* 190* 212* - 157* AST 21 27 26 - 34 ALT 10 12 12 - 25 TBILI 0.3 0.3 0.3 - 1.8* GGT - - - - 66* - = values in this interval not displayed. Coagulation: Recent Labs Component Name 09/09/17 0422 09/07/17 0428 09/06/17 1157 PT 15.8* 18.8* 24.5* INR 1.3 1.6 2.2 Lab results smartLinks are not currently available Cardiac markers: Recent Labs Component Name 09/06/17 1157 08/26/17 1420 TROPONINI 0.027 <0.010 ABGs: Recent Labs Component Name 09/10/17 0557 PO2ART 80 [id number] 44 [id number] 30.0* ?? Radiology: ?? CXR this morning with increased ?? Assessment: ?? 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 Plan: ?? Neuro/Psych: - analgesia for chronic lumbago - oxycodone 5mg PO q4 PRN and fentanyl PRN for breakthrough ?? Cardiovascular: - on ASA 81mg and Lipitor 20mg PO qD Atrial Fibrillation - amionadrone BID ?? Pulmonary: Acute Hypoxic respiratory failure - continue on: Ventilation Rate Set (bpm): 16 bpm Ventilation Rate Observed (bpm): 16 bpm Tidal Volume Set (mL): 500 ML Peak Inspiratory Pressure Observed (cm H2O): 30 cm H2O PEEP/CPAP: 10 cm H20 Pressure Support (cm H2O): 14 cm H2O O2 % (FiO2): 40 % - will redose Lasix 20mg IV x 2 doses today - CXR in AM - aggressive Chest PT with Bed and IPv q 4 hours - albuterol nebs q4 - plan for bedside Perc Trach on 09/12 Left pleural effusion - s/p L pleural 14Fr catheter - minimal drainage overnight. - Thoracic surgery consult: no surgical management for effusion ?? GI/Nutrition: - dobhoff in place - continue tube feeds ?? Renal/Electrolytes/Acid-Base: - additional Lasix 20mg IV BID today - replace lytes as needed ?? Infectious Disease: - on ceftaroline and flagyl for MRSA Discitis, will continue ceftaroline until pleural drain removed - macias culture if febrile - transudative pleural fluid ?? Hematology/Oncology: - INR trended down ?? Endocrine: - SS insulin - continue synthroid ?? Musculoskeletal/Skin: PT/OT ?? GI prophylaxis:pepcid DVT prophylaxis:SCDs, lovenox Lines: PIV, umaña Diet: continue Code Status: full Disposition: continued ICU care Veronica Costello MD Pulmonary / Critical Care Fellow Division of Pulmonary, Critical Care, & Sleep Medicine [facility] Pager: [phone] Associated attestation - Jason Nash MD - 09/10/2017 6:14 PM CDT I saw and evaluated the patient with the team, and agree with the Dr. Costello's findings and plan except for changes as per my note. Jason Nash MD 09/10/2017 * Babita Browning RN - 09/10/2017 11:37 AM CDT From admission navigator 09/06 * Jason Nash MD - 09/10/2017 8:48 AM CDT ICU progress Note: I saw and evaluated the patient, and agree with the resident's findings and plan except for changesas per my note. See resident's note for details. In addition I note- Interval History: - stable over the night - awake and following instructions Out of bed to chair Chart and medications reviewed Vitals: 09/10/17 0600 09/10/17 0700 09/10/17 0800 09/10/17 0834 BP: 116/75 114/74 109/69 Pulse: 101 95 95 95 Resp: 21 18 17 16 Temp: 98.4 ??F (36.9 ??C) SpO2: 96% 97% 99% 99% Weight: Exam: Intubated; following instructions Afebrile Normal MM; Non-icterus PERRL, moves all ext. non focal deficit CVS: S1S2+, RRR Lungs: Laron crackles; CT with serosdangious fluid; tidaling Abd: soft NT ND BS+ Ext: no edema; normal peripheral pulses Labs: 09/10/2017 05:04 WBC 11.0 (H) RBC 2.86 (L) Hemoglobin 8.0 (L) Hematocrit 27.1 (L) MCV 94.8 MCH 28.0 MCHC 29.5 (L) PLATELET (SLH) 249 RDW (SD) 69.0 (H) RDW 21.1 (H) MPV 12.4 Neutrophil % 83.6 (H) Lymphocytes % 4.9 (L) Basophil % 0.5 Neutrophil Absolute 9.2 (H) Lymphocyte Absolute Manual 0.5 (L) Monocyte Absolute 1.05 (H) EOS ABS 0.15 Basophils Abs 0.05 NRBC Absolute 0.14 (H) NRBC auto % 1.2 (H) 09/09/2017 04:22 09/09/2017 10:31 09/10/2017 05:04 Glucose 238 (H) 80 129 (H) BUN 35 (H) 36 (H) 36 (H) Creatinine 0.8 0.8 0.7 BUN/Creatinine Ratio 44 (H) 45 (H) >50 (H) Sodium 140 142 141 Potassium 5.7 (H) 4.7 (H) 4.8 (H) Chloride 104 105 103 Carbon Dioxide 24 26 28 Anion Gap 18 16 15 Calcium 8.9 8.5 8.6 09/09/2017 04:22 09/09/2017 08:41 09/10/2017 05:57 pH, Arterial 7.41 7.51 (H) 7.45 pCO2 Arterial 45 38 44 pO2 Arterial 65 (L) 274 (H) 80 HCO3 Arterial 27.4 (H) 29.2 (H) 30.0 (H) TCO2 ARTERIAL ([facility]) 28.8 30.4 (H) 31.3 (H) Base Excess Arterial 2.4 (H) 5.7 (H) 5.4 (H) Hgb Arterial 8.6 (L) 7.6 (L) 8.2 (L) O2HB ARTERIAL ([facility]) 90.7 (L) 98.7 94.5 (L) Carboxyhemoglobin 0.3 0.3 0.3 METHB ARTERIAL ([facility]) 0.3 0.5 0.7 FIO2 ARTERIAL ([facility]) 100.0 100.0 40.0 ASSESSMENT AND PLAN: ?? Acute hypoxic resp failure ?? Lung atelectasis ?? Recurrent left pleural effusion ?? History of disseminate MRSA infection ?? History of diskitis Neuro: - neuro checks; - Sedation/pain: fentanyl drip; Goal RASS 0 - Oxycodone tabs Respiratory: - Vent Buddle: HOB>30; - Monitor for Respiratory distress, - vent support; plan for tracheostomy to facilitate the pulm toileting - CT to suction today Cardiovascular/Hemodynamics: - A.fib - rate controlled with amiodarone; off anticoagulation - Hemodynamic monitoring. Goal MAP ~65mmHg - CAD on ASA, Statin; GI: - Gi prophylaxis - Nutrition: tube feeds Renal/lytes: - lasix 40 mg today - Strict I/O. Monitor UOP. - Replace electrolytes as needed. Keep K+3.5-4.0 meq,Mg~2.0 mg/dl,Po4-3.0-4.0 mmol/l Heme: - Monitor H & H.Transfuse if Hb <7.0 gm/dl ID: - continue current antibiotics; flagyl and ceftaroline - d/c if culture has no growth - Macias culture if febrile. Endo: - BGM monitoring with goal < 180 mg/dl Prophylaxis: a) Stress Ulcer: H2 fe (b) DVT: Lovenox/SCD Access/ Lines: PIV Disposition: ICU monitoring Family Communication: I reviewed plan of care with patient/ family members. Pt. is at high risk for complications and morbidity or mortality Pt. is critically ill with vital organ impairment or failure There is high probability of imminent or life threatening deterioration in the patient???s condition Overall critical care time provided: 30 Mins. Jason Nash MD 09/10/2017 * Claire Marcum MD - 09/09/2017 4:59 PM CDT Progress Notes Signed by CHRIS Ibanez on 09/09/2017 5:01 PM Author: CHRIS Ibanez Service: (none) Author Type: Assistant Professor Of Sociology Date of Service: 09/09/2017 4:59 PM Filed: 09/09/2017 5:01 PM Note Type: Progress Notes Status: Signed Glaze Supervisor: CHRIS Ibanez (Assistant Professor Of Sociology) LAURA following pt for discharge planning. LAURA met with pt's , Trinity Keys [phone], to offer support. SW familiar with pt from previous admission. Trinity is aware that pt will likely require LTACplacement upon this hospital discharge. SW to discuss LTAC preference when medically appropriate. SW to continue following. Tessie Harris LMSW 09/09/2017 * Claire Marcum MD - 09/09/2017 4:43 PM CDT Progress Notes Signed by RT Elda on 09/09/2017 4:44 PM Author: RT Elda Service: (none) Author Type: Respiratory Therapist Date of Service: 09/09/2017 4:43 PM Filed: 09/09/2017 4:44 PM Note Type: Progress Notes Status: Signed Glaze Supervisor: RT Elda (Respiratory Therapist) 09/09/17 1642 RT/ Bronch Procedure $ Bedside Bronch Flexible Bronchoscopy Procedures Flexible Bronchoscopy Site?: ICU Pre-Procedure Diagnosis Pre Procedure LOC: Sedated Procedure details Procedure start time: 1425 Scope in time: 1426 ETT Size: 8 Post Procedure Dx Scope Number: disposable Scope out time: 1449 Procedure ends: 1449 Report given to: RN Assisted with bedside bronchoscopy. Mercer protocol checklist completed prior to procedure with attending physician present. FiO2 increased to 1.0 and vent settings/alarms adjusted appropriately for procedure. SpO2 alarm set to audible. Scope lubricated with gel. All lung segments/airways inspected. Specimens obtained via wash. Patient tolerated procedure well. Vent settings & alarms returned to previous settings. Specimens prepared and sent to Lab by RN. * Claire Marcum MD - 09/09/2017 1:53 PM CDT Progress Notes Signed by RT Martha on 09/09/2017 1:53 PM Author: RT Martha Service: (none) Author Type: Respiratory Therapist Date of Service: 09/09/2017 1:53 PM Filed: 09/09/2017 1:53 PM Note Type: Progress Notes Status: Signed Glaze Supervisor: RT Martha (Respiratory Therapist) Respiratory therapist assisted with PO/OT.Manage ventilator. * Claire Marcum MD - 09/09/2017 1:36 PM CDT Progress Notes Signed by MARTHA Enciso on 09/09/2017 3:00 PM Author: MARTHA Enciso Service: (none) Author Type: Occupational Therapist Date of Service: 09/09/2017 1:36 PM Filed: 09/09/2017 3:00 PM Note Type: Progress Notes Status: Signed Glaze Supervisor: MARTHA Enciso (Occupational Therapist) Occupational Therapy [facility] Physical Medicine and Rehabilitation Occupational Therapy Initial Evaluation Note Patient: José Miguel Burroughs Record Number: [id number] Date of : 1950 Age: 66 y.o. Co-eval with PT and RT Assessment: Decreased ADL status;Decreased UE strength;Decreased Safe judgement during ADL;Decreased endurance;Decreased UE ROM Prognosis: Good Goal Formulation: Patient Treatment Interventions: Functional transfer training;ADL retraining;Endurance training;UE strengthening/ROM Progress: Progressing toward goals Recommendation: Patient will benefit from inpatient multidisciplinary therapies Need Tech Assist: Yes Plan: OT Frequency: 5 Times/Week Physician Orders: Evaluation and Treat Precautions: Weight Bearing Status: (WBAT) Activity Level: Activity as Tolerated DIAGNOSIS: Past Medical History: Diagnosis Date ??? PAYTON (acute kidney injury) ??? Asthma ??? Atrial fibrillation ??? CAD (coronary artery disease) [place] 1981, last angiogram 2010 ??? Chronic atrial fibrillation 02/22/2017 ??? COPD (chronic obstructive pulmonary disease) ??? Diabetes mellitus ??? Diabetes mellitus type 2 in obese ??? Discitis of lumbar region ??? DVT (deep venous thrombosis) 2008 ??? Dyslipidemia ??? Heart attack ??? Hypertension ??? Obstructive sleep apnea ??? Occlusive thrombus ??? [place] (obstructive sleep apnea) 2013 on CPAP ??? Other cirrhosis of liver ??? Other eczema 02/25/2017 ??? Peripheral neuropathy ??? Ulcerative colitis SUBJECTIVE / PATIENT GOALS: Pt nodded head yes to therapist. Home living: Type of Home: Facility (pt came from [facility]) Prior Function: Level of Refugio: Needs assistance with ADLs;Needs assistance with homemaking;Needs assistancewith functional transfers Receives Help From: Family ADL Assistance: Needs assistance Homemaking Assistance: Needs assistance At start of therapy session, patient found in bed and with no alarm. Pain: Patient has 0/10 pain. Follow-up for pain: No follow-up for pain indicated and patient agreed to proceed with treatment OBJECTIVE: General Appearance: elderly male resting comfortably in bed NAD. Precautions: IV's: Peripheral line, Catheter, Chest tube and Ventilator Edema: Mild edema noted in BLE Vital Signs: No c/o SOB or dizziness during session. RT present throughout session to manage ventilator settings. Pt's SPO2 between 95-100% saturation during session. Pre-activity BP: HR: O2 SAT: L 02 Room air Peak activity BP: HR: O2 SAT: L 02 Room air Post cool down BP: HR: O2 SAT: L 02 Room air Cognitive: Pt alert and oriented to self and place. Pt follows 1 step commands 75% of session. Pt demonstrates fair insight into deficits and safety awareness. Perceptual: All aspects intact Upper extremity range of motion: BUE AROM WFL Upper extremity strength: BUE 3-/5 grossly Tone: No abnormal tone noted Coordination: Not tested Sensation: BUE light touch sensation intact Patient's activity tolerance: fair Comments: Pt agreeable during session. FUNCTIONAL MOBILITY Not tested Independent Stand by Assist Minimal Moderate Maximum Dependent Rolling X 2 Supine to/from sit X 2 Sit to/from Standing X Bed to/from chair X Functional mobility of ambulation to sink/bathroom with: Not tested, pt not ambulatory Balance: Static Sitting: poor, pt requires maximal assist to maintain sitting balance at EOB. Dynamic Sitting: poor Static Standing: not tested Dynamic Standing: not tested Feeding: Not tested Self-Care: Pt moderate assist to doff/don clean gown while supine in bed. General Observation: Pt agreeable during session. Splint Issued/Checked: none TREATMENT / EDUCATION / EVALUATION: Purpose of Occupational Therapy evaluation explained. While performing mobility, exercise and self care, Patient was instructed in: Functional mobility training/weight bearing status, Safety awareness/fall precaution, Discharge plan and Self care training Presented to patient who demonstrates Fair understanding of instructions given. INFORMED CONSENT TO TREATMENT: Plan of care including recommended therapy, goals and frequency, as well as potential risks and benefits of treatment/assessment explained to patient. Patient understands and agrees to proceed. ASSESSMENT: Functional performance limited due to: limited activities of daily living, decreased mobility, upper extremity function, endurance and decreased safety awareness and Patient continues to benefit fromskilled Occupational Therapy to achieve the following functional goals. Nurse and PT contacted regarding patient status and/or discharge plan. Short Term Goals: Pt Will Perform Grooming: With stand by assist;At edge of bed Patient will perform supine to sit: with mod assist;X 2 Patient will perform sit to stand: with mod assist;X 2 Pt Will Perform AROM: B UE;1 set;10 reps;With good activity tolerance Patient will tolerate treatment : 20 minutes;with fair + endurance Halfway Goal: Halfway Goal: Patient to discharge to appropriate next level of inpatient care. Plan: OT Frequency: 5 Times/Week If patient is discharged from the facility, this note serves as a discharge summary if further occupational therapy visits did not occur. Following therapy session, patient left in bed, with call light within reach and with RN, Jose L Fuentes OTR/L 09/09/2017 * Claire Marcum MD - 09/09/2017 1:35 PM CDT Progress Notes Signed by Beata Shafer PT on 09/09/2017 3:13 PM Author: Beata Shafer PT Service: (none) Author Type: Physical Therapist Date of Service: 09/09/2017 1:35 PM Filed: 09/09/2017 3:13 PM Note Type: Progress Notes Status: Signed Glaze Supervisor: Beata Shafer PT (Physical Therapist) Physical Therapy [facility] Physical Medicine and Rehabilitation Physical Therapy Initial Evaluation Note Co-tx with OT and RT Patient: José Miguel Keys Med Record Number: [id number] Date of : 1950 Age: 66 y.o. Recommendation: PT Frequency: 5 Times/Week Treatment/Interventions: Functional transfer training;LE strengthening/ROM;Endurance training;Bed mobility;Equipment eval/education;Continued evaluation Recommendation: Patient will benefit from inpatient multidisciplinary therapies Need Tech Assist: Yes Patient is not ambulatory at this time. Nurse and Occupational Therapy contacted regarding patient status and/or discharge plan. Physician Orders: Evaluation and Treat PRECAUTIONS: Spine, Fall and Isolation Activity Level: as tolerated DIAGNOSIS: Past Medical History: Diagnosis Date ??? PAYTON (acute kidney injury) ??? Asthma ??? Atrial fibrillation ??? CAD (coronary artery disease) [place] 1981, last angiogram 2010 ??? Chronic atrial fibrillation 02/22/2017 ??? COPD (chronic obstructive pulmonary disease) ??? Diabetes mellitus ??? Diabetes mellitus type 2 in obese ??? Discitis of lumbar region ??? DVT (deep venous thrombosis) 2008 ??? Dyslipidemia ??? Heart attack ??? Hypertension ??? Obstructive sleep apnea ??? Occlusive thrombus ??? VAL[place] (obstructive sleep apnea) 2013 on CPAP ??? Other cirrhosis of liver ??? Other eczema 02/25/2017 ??? Peripheral neuropathy ??? Ulcerative colitis SUBJECTIVE: Pt agreeable to PT evaluation with encouragement from staff and family, RN agreeable toPT evaluation. PATIENT GOALS: pt unable to state personal therapy goals at this time Home living: Type of Home: Facility Prior Function: Level of Refugio: Needs assistance with functional transfers Receives Help From: Family At start of therapy session, patient found in bed, with no alarm and BUE restraints donned. Pain: Patient unable to use verbal numeric scale to quantify pain, nonverbal signs of pain noted during session Follow-up for pain: Yes, Informed nurse/physician about pain issue OBJECTIVE: General Appearance: Adult male, in NAD Precautions: IV's: Peripheral line, Catheter, Chest tube and Ventilator Skin, Incisions, Edema: BLE intact Vital Signs:(*Assess the 3 levels of oxygen saturations both for room air and 02 unless rest on room air is 88% or less). Rest: BP: 111/84 HR: 94 O2 SAT: 100% vent Fi02 50% PEEP 8 Post Ex/gait: BP: HR: O2 SAT: L 02 Room air Post cool down BP: HR: O2 SAT: L 02 Room air Observations: VSS on vent - RT present throughout session MENTAL STATUS: Alert, unable to assess orientation DIRECTION FOLLOWING: Able to follow 1 step commands 100% ROM: BLE PROM WFL, AROM below functional limits STRENGTH: knee extension 3/5, ankle DF 2+/5, PF 3+/5; hip flexion not tested 2/2 back pain SENSATION: BLE light touch intact FUNCTIONAL MOBILITY Not Tested Not Applicable Independent Stand by Assist Minimal Moderate Maximum Dependent Rolling x Scooting x Supine to/from sit X of 2 Sit to/from Stand x Bed to/ chair x Observation: BALANCE: Sitting Static: poor plus Dynamic: poor Standing Static: not tested Dynamic: not tested GAIT: Pt is not ambulatory at this time ACTIVITY TOLERANCE: Patient's activity tolerance: poor TREATMENT : evaluation, bed mobility training, sitting balance activities and monitoring of vitals EDUCATION: While performing PT: Patient and spouse was instructed in: Functional mobility training/weight bearing status and Safety awareness/fall precaution. Patient demonstrated Fair understanding of instructions given. INFORMED CONSENT TO TREATMENT: Plan of care including recommended therapy, goals and frequency, discussed with patient who understands and agrees to proceed. ASSESSMENT: Patient's functional performance presently limited due to: medical condition, strength,endurance, bed mobility, transfers and balance and Patient would benefit from additional Physical Therapy to achieve the following functional goals to enhance independence. Short Term Goals: Goal Formulation: With patient/family Pt Will Transfer Supine To/From Sit: With moderate assist;With assist of 2 Pt Will Transfer Bed to/from Chair: With moderate assist (with assist of 2) Pt Will Sit Edge of Bed: With minimal assist Concrete Batcher Goal(s): Halfway Goal: Patient to discharge to appropriate next level of inpatient care. Equipment Issued: none Plan: If patient is discharged from the facility, this note serves as a discharge summary if further physical therapy visits did not occur. Following therapy session, patient left in bed, with call light within reach, with family in room and with RN, Jose L aware. Beata Shafer PT 09/09/2017 * Claire Marcum MD - 09/09/2017 8:00 AM CDT Progress Notes Signed by Beata Shafer PT on 09/09/2017 8:00 AM Author: Beata Shafer PT Service: (none) Author Type: Physical Therapist Date of Service: 09/09/2017 8:00 AM Filed: 09/09/2017 8:00 AM Note Type: Progress Notes Status: Signed Glaze Supervisor: Beata Shafer PT (Physical Therapist) Physical Therapy [facility] Department of Physical Medicine & Rehabilitation Progress Note Patient Name José Miguel Keys Date of 1950 Age 66 y.o. 09/09/17 0700 Therapy On Hold Therapy on hold Decrease in medical status: Chart reviewed, patient with a downgrade in medical status. Patient now on hold from therapy services. Please re-consult when patient is appropriate for functional mobility and therapy interventions. Per chart, pt intubated this a.m. Beata Shafer PT 09/09/2017 8:00 AM * Vita Troncoso MD - 09/09/2017 7:39 AM CDT Progress Notes Signed by Vita Troncoso MD on 09/09/2017 4:53 PM Author: Vita Troncoso MD Service: Emergency Author Type: Resident Date of Service: 09/09/2017 7:39 AM Filed: 09/09/2017 4:53 PM Note Type: Progress Notes Status: Attested Glaze Supervisor: Vita Troncoso MD (Resident) Cosigner: Jason Nash MD at 09/09/2017 5:16 PM Attestation signed by Jason Nash MD at 09/09/2017 5:16 PM I saw and evaluated the patient, and agree with the resident's findings and plan except for changesas per my note. See resident's note for details. In addition I note- Interval History: - developed hypoxia and dyspnea over the night - got intubated Bronchoscopy noted copious lt lung. Chart and medications reviewed Vitals: 09/09/17 1400 09/09/17 1500 09/09/17 1600 09/09/17 1639 BP: 111/84 (!) 86/58 114/79 BP Location: Left arm Patient Position: Lying Pulse: 94 88 79 92 Resp: 24 21 16 16 Temp: 97.8 ??F (36.6 ??C) TempSrc: Axillary SpO2: 100% 100% 100% Weight: Height: ??Exam: Intubated; following instructions Afebrile Normal MM; Non-icterus No JVD PERRL, moves all ext. No focal deficit noted CVS: S1S2+, RRR Lungs:decreased BS with coarse crackles lt Abd: soft NT ND BS+ Ext: no edema; normal peripheral pulses Lab data reviewed CBC - WBC dropped to 10. Bronchial wash - no growth CXR 09/07 - [facility] Interstitial opacities; Small right and moderate left pleural effusions with associated atelectasis ASSESSMENT AND PLAN: ?? Acute hypoxic resp failure ?? Left pleural effusion w/ atelectasis ?? Bilateral interstitial opacities due to pulm edema ?? Shock - septic vs medication induced - resolved ?? H/o MRSA disseminated infection ?? H/o A fib on amiodarone and anticoagulation ?? Neuro: - neuro checks; - Sedation/pain: fentanyl prn and oxycodone Respiratory: - Continue vent support - plan for trach next week - s/p bronch w/ therapeutic suctioning - s/p lt CT tube - no significant out-put w/ thrombolytic - HOB>30; - Monitor for Respiratory distress, - chest physiotherapy w/ bed percussion Cardiovascular/Hemodynamics: - Hemodynamic monitoring. Goal MAP ~65mmHg - continue w/ amiodarone; hold cardizem. - Continue to Hold rivaroxiban - CAD on ASA, Statin; GI: - Gi prophylaxis - Nutrition: tube feeds Renal/lytes: - lasix 40 mg today - Strict I/O. Monitor UOP. - Replace electrolytes as needed. Keep K+3.5-4.0 meq,Mg~2.0 mg/dl,Po4-3.0-4.0 mmol/l Heme: - Monitor H & H.Transfuse if Hb <7.0 gm/dl ID: - continue w/ ceftaroline and flagyl till 09/10. Follow final cultures results - Macias culture if febrile. Endo: - Synthroids - BGM monitoring with goal < 180 mg/dl ?? Prophylaxis: a) Stress Ulcer: H2 fe (b) DVT: SCD ?? Access/ Lines: PIV ?? Disposition: ICU monitoring ?? Family Communication: I reviewed plan of care with the patient and family members. Jason Nash MD 09/09/2017 MEDICAL INTENSIVE CARE UNIT DAILY PROGRESS NOTE 09/09/2017 7:39 AM Admit date: 09/06/2017 Subjective: Briefly, José Miguel Keys was admitted to the ICU for acute hypoxic respiratory failure. He has had multiple ICU admissions. He was found to have significant mucous plugging. Currently being treated with ceftaroline and flagyl for MRSA discitis. He was initially intubated in the ED for hypoxia. He was found to have significant mucous plugging on bronchoscopy. He had a left sided pleural drain placed in left fluid effusion with alteplase administered through the catheter to assist with resolution of loculations. Events in the past 24 hours: Desaturation overnight, repeat CXR with concern for mucous plugging. Now on 6L NC. ICU Timeline: 09/06 admitted to ICU intubated and on low dose vasopressors 09/07 PSV trial, CT chest to eval L pleural effusion, extubation 09/08left pigtail drain placed 09/09 intubated for hypoxia Objective: Current vital signs Blood pressure 109/71, pulse 86, temperature 97.9 ??F (36.6 ??C), temperature source Axillary, resp. rate 24, height 5' 10 (1.778 m), weight 212 lb 8.4 oz (96.4 kg), SpO2 100 %. temperature range Temp (24hrs), Av.6 ??F (36.4 ??C), Min:96.4 ??F (35.8 ??C), Max:98.2 ??F (36.8 ??C) Input/Output 09/07 1901 - 09/09 0700 In: 2337.5 [I.V.:0.5] Out: 2440 [Urine:2160] Physical Exam ?? General: intubated, awake, follows commands ?? HEENT: PERRLA, NCAT, ETT ?? Neck: supple, No LAD ?? Chest: CTA B/L. Coarse breath sounds bilaterally with deminished breath sounds left lower lung, pleural catheter in place ?? Heart: tachycardia, Normal S1, S2. No murmur, gallops and/or rubs. ?? Abdomen: + BS, soft, NT, ND. hepatosplenomegaly ?? Extremities: No edema. Good distal pulses. ?? Neuro: AAOx3, non-focal Data Review: CBC: Recent Labs 09/09/17 04209/07/17 04209/06/17 1157 WBC 18.9 H 10.1 27.8 H HGB 9.1 L 7.4 L 8.2 L HCT 31.2 L 25.1 L 28.5 L PLT 426 H 313 432 H MCV 95.4 92.3 95.3 BMP: Recent Labs 09/09/17 0422 09/07/17 0428 09/06/17 1621 09/06/17 1211 09/06/17 1157 BUN 35 H 24 21 NA 140 140 143 K 5.7 H 4.6 H 4.2 3.8 3.8 CL 104 106 108 H CO2 24 25 20 L ANIONGAP 18 14 19 H MG 1.4 L LFTs: Recent Labs 09/06/17 1157 ALKPHOS 204 H ALT 10 AST 21 Coagulation: Recent Labs 09/09/17 0422 09/07/17 0428 09/06/17 1157 PT 15.8 H 18.8 H 24.5 H INR 1.3 1.6 2.2 Cardiac: Lab Results Component Value Date CKTOTAL 19 (L) 08/26/2017 TROPONINI 0.027 09/06/2017 ABG: Lab Results Component Value Date [id number] 45 09/09/2017 PO2ART 65 (L) 09/09/2017 [id number] 27.4 (H) 09/09/2017 Radiology: CXR this morning with increased Assessment: 1) Acute hypoxic respiratory failure with mucous plugging 2) 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 3) Shock - resolved 4) Left pleural Effusion 5: Atrial Fibrillation Plan: Neuro/Psych: - monitor neuro status Cardiovascular: Atrial Fibrillation - amionadrone BID Pulmonary: Acute Hypoxic respiratory failure - required intubation overnight - AC(15/500/100/+8) - recheck ABG and titrate FiO2 as tolerates -improved initially, but ON desat and now requiring 6L - CT shows left pleural effusion Left pleural effusion - Thoracic surgery consult: no surgical management for effusion - will place pleural drain today - plan for bronchoscopy today GI/Nutrition: - dobhoff in place - continue tube feeds Renal/Electrolytes/Acid-Base: - monitor Cr - strict I/Os - replace lytes as needed K+ 3.5-4.0 meq, Mg 2.0 mg/dl, Po4 3.0-4.0 mmol/L Infectious Disease: - on ceftaroline and flagyl for MRSA Discitis, will continue ceftaroline until pleural drain removed - macias culture if febrile- F/U on pleural fluid cultures Hematology/Oncology: - monitor CBC - INR trending down Endocrine: - SS insulin - continue synthroid Musculoskeletal/Skin: PT/OT GI prophylaxis:protonix DVT prophylaxis:SCDs, lovenox Lines: PIV, umaña Diet: continue Code Status: full Disposition: continued ICU care Vita Troncoso MD 09/09/2017 7:39 AM * Delphine Waddell APRN-RFID STRATEGIST - 09/09/2017 4:16 AM CDT Progress Notes Signed by Delphine Waddell NP on 09/09/2017 4:23 AM Author: Delphine Waddell NP Service: Medical ICU Author Type: Nurse Practitioner Date of Service: 09/09/2017 4:16 AM Filed: 09/09/2017 4:23 AM Note Type: Progress Notes Status: Signed Glaze Supervisor: Delphine Waddell NP (Nurse Practitioner) Called by the nursing staff, patient acutely hypoxic SpO2 70s, tachypneic with increased work of breathing. CXR stat ordered. Patient placed on NRB with no improvement of hypoxia. Attempted nasal andoral suctioning without much of output. No acute changes compared to the prior CXR. Patient's CT has been draining well. Dr. Rubin notified. Patient intubated per Dr. Rubin. CXR ordered to verify ETTplacement. ABG ordered. notified about the acute changes. She agreed with the intubation. Delphine Waddell NP Critical Care, MICU3 Ext [phone] * ProviderClaire MD - 09/08/2017 8:05 AM CDT Progress Notes Signed by MARTHA Newton on 09/08/2017 8:06 AM Author: MARTHA Newton Service: Physical Medicine and Rehabilitation Author Type: Occupational Therapist Date of Service: 09/08/2017 8:05 AM Filed: 09/08/2017 8:06 AM Note Type: Progress Notes Status: Signed Glaze Supervisor: MARTHA Newton (Occupational Therapist) Occupational Therapy [facility] Department of Physical Medicine & Rehabilitation Progress Note Patient Name José Miguel Keys Date of 1950 Age 66 y.o. 09/08/17 0800 Missed Visit Missed Visit Physician Canrandy Called to inquire about activity order and MD states the patient is likely plugging again and has become hypoxic with questionable re-intubation or trach. Per MD (MICU 3), cancel therapy this date. MARTHA Newton 09/08/2017 8:06 AM * Vita Troncoso MD - 09/08/2017 7:21 AM CDT Progress Notes Signed by Vita Troncoso MD on 09/08/2017 1:57 PM Author: Vtia Troncoso MD Service: Medical ICU Author Type: Resident Date of Service: 09/08/2017 7:21 AM Filed: 09/08/2017 1:57 PM Note Type: Progress Notes Status: Attested Glaze Supervisor: Vita Troncoso MD (Resident) Cosigner: Jason Nash MD at 09/08/2017 2:55 PM Attestation signed by Jason Nash MD at 09/08/2017 2:55 PM I saw and evaluated the patient, and agree with the resident's findings and plan except for changesas per my note. See resident's note for details. In addition I note- Interval History: - had increased oxygen requirement - has a good cough CXR worsening pvc Bedside U/S - loculated lt pleural effusions Chart and medications reviewed Vitals: 09/08/17 1200 09/08/17 1300 09/08/17 1322 09/08/17 1400 BP: 109/75 100/70 BP Location: Left arm Left arm Patient Position: Lying Lying Pulse: 95 82 90 83 Resp: 23 13 20 13 Temp: 97.7 ??F (36.5 ??C) TempSrc: Axillary SpO2: 94% 100% 100% Weight: Height: ??Exam: Intubated; no sedation, following instructions Afebrile Normal MM; Non-icterus No JVD PERRL, moves all ext. No focal deficit noted CVS: S1S2+, RRR Lungs:decreased BS with coarse crackles lt Abd: soft NT ND BS+ Ext: no edema; normal peripheral pulses Lab data reviewed CBC - WBC dropped to 10. Bronchial wash - no growth CXR 09/07 - [facility] Interstitial opacities; Small right and moderate left pleural effusions with associated atelectasis ASSESSMENT AND PLAN: ?? Acute hypoxic resp failure ?? Left pleural effusion w/ atelectasis ?? Bilateral interstitial opacities due to pulm edema ?? Shock - septic vs medication induced - resolved ?? H/o MRSA disseminated infection ?? H/o A fib on amiodarone and anticoagulation ?? Neuro: - neuro checks; - pain: fentanyl prn and oxycodone Respiratory: - plan for CT tube - will consider trial of thrombolytic - HOB>30; - Monitor for Respiratory distress, - chest physiotherapy w/ bed percussion Cardiovascular/Hemodynamics: - Hemodynamic monitoring. Goal MAP ~65mmHg - continue w/ amiodarone; hold cardizem. - Continue to Hold rivaroxiban - CAD on ASA, Statin; GI: - Gi prophylaxis - Nutrition: tube feeds Renal/lytes: - lasix 40 mg today - Strict I/O. Monitor UOP. - Replace electrolytes as needed. Keep K+3.5-4.0 meq,Mg~2.0 mg/dl,Po4-3.0-4.0 mmol/l Heme: - Monitor H & H.Transfuse if Hb <7.0 gm/dl ID: - continue w/ ceftaroline and flagyl till 09/10. Follow final cultures results - Macias culture if febrile. Endo: - Synthroids - BGM monitoring with goal < 180 mg/dl ?? Prophylaxis: a) Stress Ulcer: H2 fe (b) DVT: SCD ?? Access/ Lines: PIV ?? Disposition: ICU monitoring ?? Family Communication: I reviewed plan of care with the patient and family members. Jason Nash MD 09/08/2017 MEDICAL INTENSIVE CARE UNIT DAILY PROGRESS NOTE 09/08/2017 7:21 AM Admit date: 09/06/2017 Subjective: Briefly, José Miguel Keys was admitted to the ICU for acute hypoxic respiratory failure. He has had multiple ICU admissions. He was found to have significant mucous plugging. Currently being treated with ceftaroline and flagyl for MRSA discitis Events in the past 24 hours: Desaturation overnight, repeat CXR with concern for mucous plugging. Now on 6L NC. ICU Timeline: 09/06 admitted to ICU intubated and on low dose vasopressors 09/07 PSV trial, CT chest to eval L pleural effusion, extubation 09/08left pigtail drain placed Objective: Current vital signs Blood pressure 113/70, pulse 101, temperature 97.1 ??F (36.2 ??C), temperature source Axillary, resp. rate 28, height 5' 10 (1.778 m), weight 212 lb 4.9 oz (96.3 kg), SpO2 94 %. temperature range Temp (24hrs), Av.7 ??F (36.5 ??C), Min:97.1 ??F (36.2 ??C), Max:98.2 ??F (36.8 ??C) Input/Output 09/06 1900 - 09/08 0700 In: 1950 [I.V.:10] Out: 1155 [Urine:1155] Physical Exam ?? General: pleasant, NAD ?? HEENT: PERRLA, NCAT ?? Neck: supple, No LAD ?? Chest: CTA B/L. Coarse breath sounds bilaterally with deminished breath sounds left lower lung ?? Heart: tachycardia, Normal S1, S2. No murmur, gallops and/or rubs. ?? Abdomen: + BS, soft, NT, ND. No hepatosplenomegaly ?? Extremities: No edema. Good distal pulses. ?? Neuro: AAOx3, non-focal Data Review: CBC: Recent Labs 09/07/17 0428 09/06/17 1157 WBC 10.1 27.8 H HGB 7.4 L 8.2 L HCT 25.1 L 28.5 L PLT 313 432 H MCV 92.3 95.3 BMP: Recent Labs 09/07/17 0428 09/06/17 1621 09/06/17 1211 09/06/17 1157 BUN 24 21 NA 140 143 K 4.6 H 4.2 3.8 3.8 CL 106 108 H CO2 25 20 L ANIONGAP 14 19 H MG 1.4 L LFTs: Recent Labs 09/06/17 1157 ALKPHOS 204 H ALT 10 AST 21 Coagulation: Recent Labs 09/07/17 0428 09/06/17 1157 PT 18.8 H 24.5 H INR 1.6 2.2 Cardiac: Lab Results Component Value Date CKTOTAL 19 (L) 08/26/2017 TROPONINI 0.027 09/06/2017 ABG: Lab Results Component Value Date [id number] 47 (H) 09/06/2017 PO2ART 169 (H) 09/06/2017 [id number] 27.0 (H) 09/06/2017 Radiology: CXR this morning with increased Assessment: 1) Acute hypoxic respiratory failure with mucous plugging 2) 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 3) Shock - resolved 4) Left pleural Effusion 5: Atrial Fibrillation Plan: Neuro/Psych: - monitor neuro status Cardiovascular: Atrial Fibrillation - amionadrone BID Pulmonary: Acute Hypoxic respiratory failure -improved initially, but ON desat and now requiring 6L - CT shows left pleural effusion Left pleural effusion - Thoracic surgery consult: no surgical management for effusion - will place pleural drain today GI/Nutrition: - dobhoff in place - continue tube feeds Renal/Electrolytes/Acid-Base: - monitor Cr - strict I/Os - replace lytes as needed K+ 3.5-4.0 meq, Mg 2.0 mg/dl, Po4 3.0-4.0 mmol/L Infectious Disease: - on ceftaroline and flagyl for MRSA Discitis, will continue ceftaroline until pleural drain removed - macias culture if febrile- F/U on pleural fluid cultures Hematology/Oncology: - monitor CBC - INR trending down Endocrine: - SS insulin - continue synthroid Musculoskeletal/Skin: PT/OT GI prophylaxis:protonix DVT prophylaxis:SCDs, lovenox Lines: PIV, umaña Diet: continue Code Status: full Disposition: continued ICU care Vita Troncoso MD 09/08/2017 1:56 PM * Provider, MD Claire - 09/08/2017 5:45 AM CDT Progress Notes Signed by Kim Joshua RN on 09/08/2017 5:48 AM Author: Kim Joshua RN Service: (none) Author Type: Registered Nurse Date of Service: 09/08/2017 5:45 AM Filed: 09/08/2017 5:48 AM Note Type: Progress Notes Status: Signed Glaze Supervisor: Kim Joshua RN (Registered Nurse) [phone] Patient states he is SOB and feels like I'm going to stop breathing again Desat to 88% on 5LNC; oxygen turned up to 6L NC and O2 sats up to 90-92%. Left lung sounds noted to be more diminished than right. Pt. Refused nasal bipap at this time. MICU 3 resident called and notified. MD aware and stat chest x-ray ordered. RT notified and aware. * Vita Troncoso MD - 09/07/2017 1:00 PM CDT Progress Notes Signed by Vita Troncoso MD on 09/07/2017 1:40 PM Author: Vita Troncoso MD Service: Medical ICU Author Type: Resident Date of Service: 09/07/2017 1:00 PM Filed: 09/07/2017 1:40 PM Note Type: Progress Notes Status: Attested Glaze Supervisor: Vita Troncoso MD (Resident) Related Notes: Original Note by Vita Troncoso MD (Resident) filed at 09/07/2017 1:39 PM Cosigner: Jason Nash MD at 09/07/2017 2:30 PM Attestation signed by Jason Nash MD at 09/07/2017 2:30 PM I saw and evaluated the patient, and agree with the resident's findings and plan except for changesas per my note. See resident's note for details. In addition I note- Interval History: - remained stable on vent - off pressors - tolerating PSV - minimal ETT secretions Bedside U/S - loculated lt pleural effusions Chart and medications reviewed Vitals: 09/07/17 1100 09/07/17 1200 09/07/17 1217 09/07/17 1300 BP: 111/82 114/79 110/72 BP Location: Right arm Right arm Patient Position: Lying Lying Pulse: 106 100 96 107 Resp: 25 23 27 14 Temp: TempSrc: SpO2: 99% 100% 98% Weight: Height: Estimated body mass index is 30.78 kg/(m^2) as calculated from the following: Height as of this encounter: 5' 10 (1.778 m). Weight as of this encounter: 214 lb 8.1 oz (97.3 kg). ??Exam: Intubated; no sedation, following instructions Afebrile Normal MM; Non-icterus No JVD PERRL, moves all ext. No focal deficit noted CVS: S1S2+, RRR Lungs:decreased BS with coarse crackles lt Abd: soft NT ND BS+ Ext: no edema; normal peripheral pulses Lab data reviewed CBC - WBC dropped to 10. Bronchial wash - no growth CXR 09/07 - [facility] Interstitial opacities; Small right and moderate left pleural effusions with associated atelectasis ASSESSMENT AND PLAN: ?? Acute hypoxic resp failure ?? Lung atelectasis ?? Bilateral interstitial opacities due to pulm edema ?? Shock - septic vs medication induced - resolved ?? H/o MRSA disseminated infection ?? H/o A fib on amiodarone and anticoagulation ?? Neuro: - neuro checks; - Sedation/pain: fentanyl prn; Goal RASS 0 to-1. Add oxycodone Respiratory: - Vent Buddle: HOB>30; - Monitor for Respiratory distress, - chest physiotherapy w/ bed percussion - obtain CT chest - evaluated for loculated effusion that may need CTS vs drain and thrombolytics Cardiovascular/Hemodynamics: - Hemodynamic monitoring. Goal MAP ~65mmHg - continue w/ amiodarone; hold cardizem. - Hold rivaroxiban - CAD on ASA, Statin; GI: - Gi prophylaxis - Nutrition: NPO Renal/lytes: - lasix x1 - Strict I/O. Monitor UOP. - Replace electrolytes as needed. Keep K+3.5-4.0 meq,Mg~2.0 mg/dl,Po4-3.0-4.0 mmol/l Heme: - Monitor H & H.Transfuse if Hb <7.0 gm/dl ID: - continue w/ ceftaroline and flagyl. Follow final cultures - Macias culture if febrile. Endo: - Synthroids - BGM monitoring with goal < 180 mg/dl ?? Prophylaxis: a) Stress Ulcer: H2 fe (b) DVT: SCD ?? Access/ Lines: PIV, central line - IJ - d/c ?? Disposition: ICU monitoring ?? Family Communication: I reviewed plan of care with the family members. ? Pt. is at high risk for complications and morbidity or mortality ?? Pt. is critically ill with vital organ impairment or failure ?? There is high probability of imminent or life threatening deterioration in the patient???s condition ?? Overall critical care time provided: 34 Mins. Jason Nash MD 09/07/2017 MEDICAL INTENSIVE CARE UNIT DAILY PROGRESS NOTE 09/07/2017 1:00 PM Admit date: 09/06/2017 Subjective: Briefly, José Miguel Keys was admitted to the ICU for acute hypoxic respiratory failure. He has had multiple ICU admissions. He was found to have significant mucous plugging. He is currently being treated Events in the past 24 hours: Patient tolerated the vent well overnight ICU Timeline: 09/06 admitted to ICU intubated and on low dose vasopressors 09/07 PSV trial, CT chest to eval L pleural effusion Objective: Current vital signs Blood pressure 114/79, pulse 96, temperature 98.5 ??F (36.9 ??C), temperature source Oral, resp. rate 27, height 5' 10 (1.778 m), weight 214 lb 8.1 oz (97.3 kg), SpO2 100 %. temperature range Temp (24hrs), Av.4 ??F (36.9 ??C), Min:98.1 ??F (36.7 ??C), Max:98.7 ??F (37.1 ??C) Input/Output 09/05 1901 - 09/07 0700 In: 912.3 [I.V.:101.3] Out: 450 [Urine:450] Physical Exam ?? General: pleasant, NAD ?? HEENT: PERRLA, NCAT ?? Neck: supple, No LAD ?? Chest: CTA B/L. No wheezes, rales, or rhonchi. ?? Heart: RRR, Normal S1, S2. No murmur, gallops and/or rubs. ?? Abdomen: + BS, soft, NT, ND. No hepatosplenomegaly ?? Extremities: No edema. Good distal pulses. ?? Neuro: AAOx3, non-focal Data Review: CBC: Recent Labs 09/07/17 0428 09/06/17 1157 WBC 10.1 27.8 H HGB 7.4 L 8.2 L HCT 25.1 L 28.5 L PLT 313 432 H MCV 92.3 95.3 BMP: Recent Labs 09/07/17 0428 09/06/17 1621 09/06/17 1211 04/03/18 1157 BUN 24 21 NA 140 143 K 4.6 H 4.2 3.8 3.8 CL 106 108 H CO2 25 20 L ANIONGAP 14 19 H MG 1.4 L LFTs: Recent Labs 09/06/17 1157 ALKPHOS 204 H ALT 10 AST 21 Coagulation: Recent Labs 09/07/17 0428 09/06/17 1157 PT 18.8 H 24.5 H INR 1.6 2.2 Cardiac: Lab Results Component Value Date CKTOTAL 19 (L) 08/26/2017 TROPONINI 0.027 09/06/2017 ABG: Lab Results Component Value Date ZZR2WEX 47 (H) 09/06/2017 PO2ART 169 (H) 09/06/2017 MTO1FXB 27.0 (H) 09/06/2017 Radiology: CXR this morning with Assessment: 1) Acute hypoxic respiratory failure with mucous plugging 2) 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 3) Shock - resolved 4) Left pleural Effusion Plan: Neuro/Psych: - monitor neuro status Cardiovascular: - pressors weaned off overnight - continue home ASA and statin for CAD - continue amiodarone, hold diltiazem Pulmonary: Acute Hypoxic respiratory failure - CXR improved this AM - PSV trial this AM - Vent bundle - will get non-con CT to evaluate for left pleural effusion GI/Nutrition: - dobhoff in place - continue tube feeds, will hold when ready for extubation Renal/Electrolytes/Acid-Base: - monitor Cr - strict I/Os - replace lytes as needed K+ 3.5-4.0 meq, Mg 2.0 mg/dl, Po4 3.0-4.0 mmol/L Infectious Disease: - on ceftaroline and flagyl for MRSA Discitis - macias culture if febrile Hematology/Oncology: - monitor CBC - INR trending down Endocrine: - SS insulin - continue synthroid Musculoskeletal/Skin: PT/OT GI prophylaxis:protonix DVT prophylaxis:SCDs, plan for restart lovenox in near future Lines:R IJ CVC, PIV, umaña, ETT Diet: continue Code Status: full Disposition: continued ICU care * ProviderClaire MD - 09/07/2017 7:27 AM CDT Progress Notes Signed by Ирина Barrientos RD on 09/07/2017 8:29 AM Author: Ирина Barrientos RD Service: (none) Author Type: Operating Manager Date of Service: 09/07/2017 7:27 AM Filed: 09/07/2017 8:29 AM Note Type: Progress Notes Status: Signed Glaze Supervisor: Ирина Barrientos RD (Operating Manager) Medical Nutrition Therapy Evaluation Nutrition Recommendations: Alter/change nutrition order ?? Add beneprotein and advance TF rate to meet nutrition needs ?? Promote at 70 ml/hr. ?? 2 pkt of beneprotein QID with 150 ml water ?? Provides 1872 kcal, 153 g protein, 2010 ml free water. (TF+Beneprotein+water) Nutrition Assessment: 09/07 Initial Pt screened at risk wt loss, chewing/swallowing, home TF. Pt on the vent & on TF. Current regimen Promote at 60 ml/hr +nutrisource fiber BID. Provides 1440 kcal, 90 g protein, 1208 mlfree water. Meeting 107% of kcal and 67% of protein needs. abdomen soft/round +BM 09/07. Currently off pressors. HPI: acute hypoxic hypercapnic respiratory failure PMH: COPD, VALENTINA, CAD, Afib, DM Height 09/06/17 5' 10 (1.778 m) Weight 09/07/17 214 lb 8.1 oz (97.3 kg) Body mass index is 30.78 kg/(m^2). IBW: 166 lb (75.4kg) Usual BW: 260 lb per pt previous admit BMI Range: Obese Class 1 Unintended Weight Loss: > 7.5% x 3 months 18% wt loss Wounds: Yes Wound details: buttocks & left flank Wt Readings 09/07/17 214 lb 8.1 oz (97.3 kg) 08/06/17 231 lb 0.7 oz (104.8 kg) 08/04/17 251 lb 5.2 oz (114 kg) 08/03/17 253 lb 8.5 oz (115 kg) 07/24/17 260 lb 2 oz (118 kg) 07/18/17 240 lb 1.6 oz (108.9 kg) 07/17/17 240 lb 6.4 oz (109 kg) 07/16/17 248 lb 1.6 oz (112.5 kg) 07/14/17 250 lb 3.6 oz (113.5 kg) Estimated Needs: Calories: 4578-1549 kcals ([facility] 2010) vent/obese Protein: 135-165 g (1.8-2.2g/kg) ideal body weight Fluid: 2400 ml (25ml/kg) Diet/TF/TPN Order: Active Diet Order Diet - Tube Feed Diet tube feeding continuous PROMOTE (STANDARD LOW RESIDUE HIGH PROTEIN) Supplement Order: Supplements There are no active orders of the following type(s): Nourishments. Food Allergies: No known allergies Labs: Recent Labs 09/07/17 0529 09/07/17 0428 09/06/17 1157 NA 140 143 K 4.6 H 3.8 CL 106 108 H BUN 24 21 CREATININE 0.7 0.7 GLUCFINGSTK 171 H CALCIUM 8.4 8.5 WBC 10.1 27.8 H EGFR >60 >60 MG 1.4 L PHOS 2.9 ALT 10 AST 21 ALB 1.8 L = values in this interval not displayed. Recent Labs 07/14/17 2212 A1C 6.3 Medications: famotidine, fentanyl, SSI, norepinephrine (stopped), Mg x 1 Education Provided: No Pain Effecting Nutritional Status: NPO Nutrition Diagnosis Diagnosis 1: Swallowing difficulty related to: mechanical cause as evidenced by: intubation Nutrition Intervention: Enteral nutrition Monitoring: TF, Labs, MAP, vent, GI, Wt Goals: Enteral/Parenteral nutrition prescription will be consistent with estimated nutrient needs Nutrition Goal Progress: new goal Reassessment within 3-5 days. Nutrition risk level High. Registered Dietitian: Ирина Barrientos RD * Claire Marcum MD - 09/07/2017 5:59 AM CDT Progress Notes Signed by Jay Lemon RN on 09/07/2017 5:59 AM Author: Jay Lemon RN Service: (none) Author Type: Registered Nurse Date of Service: 09/07/2017 5:59 AM Filed: 09/07/2017 5:59 AM Note Type: Progress Notes Status: Signed Glaze Supervisor: Jay Lemon RN (Registered Nurse) At 0500, UOP has only been 35 for 2 hours. Rebecca Melendez NP notified. No increase in uop since 500 cc bolus administered. * Claire Marcum MD - 09/07/2017 5:25 AM CDT Progress Notes Signed by RT Niurka on 09/07/2017 5:26 AM Author: RT Niurka Service: (none) Author Type: Respiratory Therapist Date of Service: 09/07/2017 5:25 AM Filed: 09/07/2017 5:26 AM Note Type: Progress Notes Status: Signed Glaze Supervisor: RT Niurka (Respiratory Therapist) Patient is excluded from Mechanical Ventilation Liberation : Spontaneous breathing index with PEEP +10 =80 * Claire Marcum MD - 09/07/2017 2:22 AM CDT Progress Notes Signed by Jay Lemon RN on 09/07/2017 2:23 AM Author: Jay Lemon RN Service: (none) Author Type: Registered Nurse Date of Service: 09/07/2017 2:22 AM Filed: 09/07/2017 2:23 AM Note Type: Progress Notes Status: Signed Glaze Supervisor: Jay Lemon RN (Registered Nurse) Notified BELLA Fernandez, of patient's HR being anywhere from 115-120, a-fib. Also UOP for the last two hours has only been 35 ml. No new orders at this time. * Jason Nash MD - 09/06/2017 4:03 PM CDT Progress Notes Signed by Jason Nash MD on 09/07/2017 2:20 PM Author: Jason Nash MD Service: Pulmonary Critical Care Author Type: Physician Date of Service: 09/06/2017 4:03 PM Filed: 09/07/2017 2:20 PM Note Type: Progress Notes Status: Signed Glaze Supervisor: Jason Nash MD (Physician) ICU progress Note: I saw and evaluated the patient, and agree with the resident's findings and plan except for changesas per my note. See resident's note for details. 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 He was intubated in the ER. He was shock requiring multiple pressors. Upon admission to ICU,emergent bronchoscopy showed copious tenacious mucus w/ complete Left mainstem bronchi obstruction. Interval History: - CXR lt lung open - pressors requirement decreasing - FiO2 requirement better - afebrile Chart and medications reviewed Pt discharged with - ceftaroline and flagyl until 09/10/17, rivaroxiban, amiodarone lidacain patch and oxycodone. Vitals: 09/06/17 1240 09/06/17 1311 09/06/17 1400 09/06/17 1500 BP: 138/84 136/83 110/74 109/82 BP Location: Right arm Patient Position: Sitting Pulse: 102 93 86 Resp: 20 20 20 20 Temp: 96.3 ??F (35.7 ??C) TempSrc: Bladder SpO2: 93% 94% 96% 94% Weight: Height: Estimated body mass index is 31.57 kg/(m^2) as calculated from the following: Height as of this encounter: 5' 10 (1.778 m). Weight as of this encounter: 220 lb (99.8 kg). Exam: Intubated and sedated Afebrile Normal MM; Non-icterus No JVD PERRL, moves all ext. No focal deficit noted CVS: S1S2+, RRR Lungs: coarse crackles laron Abd: soft NT ND BS+ Ext: no edema; normal peripheral pulses Labs: Lab Results Component Value Date WBC 27.8 (H) 09/06/2017 RBC 2.99 (L) 09/06/2017 HGB 8.2 (L) 09/06/2017 HCT 28.5 (L) 09/06/2017 NA 143 09/06/2017 K 3.8 09/06/2017 CL 108 (H) 09/06/2017 CO2 20 (L) 09/06/2017 BUN 21 09/06/2017 CREATININE 0.7 09/06/2017 CALCIUM 8.5 09/06/2017 PT 24.5 (H) 09/06/2017 INR 2.2 09/06/2017 CXR - atelectasis lt lung, ETT in good position. Repeat CXR - better Lt lung aeration. ASSESSMENT AND PLAN: Acute hypoxic resp failure Lung atelectasis Shock - septic vs medication induced MRSA disseminated infection H/o A fib on amiodarone and anticoagulation Neuro: - neuro checks; - Sedation/pain: fentanyl and versed prn; Goal RASS 0 to-1. - Respiratory: - Vent Buddle: HOB>30; - Monitor for Respiratory distress, - chest physiotherapy w/ bed percussion Cardiovascular/Hemodynamics: - Shock on pressors; wean to off. - Hemodynamic monitoring. Goal MAP ~65mmHg - continue w/ amiodarone; hold cardizem. - Hold rivaroxiban - CAD on ASA, Statin; GI: - Gi prophylaxis - Nutrition: NPO Renal/lytes: - Strict I/O. Monitor UOP. - Replace electrolytes as needed. Keep K+3.5-4.0 meq,Mg~2.0 mg/dl,Po4-3.0-4.0 mmol/l Heme: - Monitor H & H.Transfuse if Hb <7.0 gm/dl ID: - continue w/ ceftaroline and flagyl. Follow final cultures - Macias culture if febrile. Endo: - Synthroids - BGM monitoring with goal < 180 mg/dl Prophylaxis: a) Stress Ulcer: H2 fe (b) DVT: SCD Access/ Lines: PIV, central line - IJ Disposition: ICU monitoring Family Communication: I reviewed plan of care with the family members. ?? Pt. is at high risk for complications and morbidity or mortality ?? Pt. is critically ill with vital organ impairment or failure ?? There is high probability of imminent or life threatening deterioration in the patient???s condition ?? Time involved in the performance of separately billable procedures, teaching, reviewing education material was not counted towards critical care time. ?? Patient is unable or incompetent to participate in giving a history and/or making decisions and discussion is necessary for determining treatment decisions. Overall critical care time provided: 38 Mins. Jason Nash MD 09/06/2017 * Claire Marcum MD - 09/06/2017 3:03 PM CDT Progress Notes Signed by RT Song on 09/06/2017 3:06 PM Author: RT Song Service: Pulmonary Critical Care Author Type: Respiratory Therapist Date of Service: 09/06/2017 3:03 PM Filed: 09/06/2017 3:06 PM Note Type: Progress Notes Status: Signed Glaze Supervisor: RT Song (Respiratory Therapist) 09/06/17 1500 RT/ Bronch Procedure $ Bedside Bronch Flexible Bronchoscopy Procedures Flexible Bronchoscopy Pre-Procedure Diagnosis Pre Procedure LOC: Sedated Procedure Checks Consent signed?;NPO checked? Pacemaker/ AICD? No Procedure details Procedure start time: 1329 Scope in time: 1331 Bronchoscopy Route: ETT ETT Size: 8.0 Post Procedure Dx Post Procedure LOC: Other? (Comment) (sedated) Restart Vitals Timer Yes Scope Number: disp Scope out time: 1356 Procedure ends: 1355 Report given to: RN Assisted with bedside bronchoscopy. Mercer protocol checklist completed prior to procedure with attending physician present. FiO2 increased to 1.0 and vent settings/alarms adjusted appropriately for procedure. SpO2 alarm set to audible. Scope lubricated with lubricating jelly. All lung segments/airways inspected. Thick tenacious secretions t/o all lung herrera. Specimens obtained via bronchial washing. Patient tolerated procedure well. Vent settings & alarms returned to previous settings.Specimens prepared and sent to Lab by Bronch Staff. * Claire Marcum MD - 09/06/2017 12:03 PM CDT Progress Notes Signed by CHRIS Littlejohn on 09/06/2017 12:06 PM Author: CHRIS Littlejohn Service: (none) Author Type: Assistant Professor Of Sociology Date of Service: 09/06/2017 12:03 PM Filed: 09/06/2017 12:06 PM Note Type: Progress Notes Status: Signed Glaze Supervisor: CHRIS Littlejohn (Assistant Professor Of Sociology) READMISSION NOTE: ?? Pt readmitted to [facility] within 30 days. Pt transferred from [facility] to [facility]. Below assessment was completed with pt and during last admission. confirms that all information remains correct for pt at this time. SW provided support to pts . Pts tearful and expressed concern for her . was able to speak with MD (ED attending) and obtain update and is aware that pt is going to be admitted to ICU. At present time discharge planning was deferred due to pts emergent medical condition. SW will refer pt to inpatient SW/CM for further follow up and discharge planning. ? Case Management Transition of Care Screening A Screening was completed and welcome letter given today with patient for potential transition of care resource needs. Medical record was reviewed and consultation was completed with medical team and patient/family with the goal to ensure coordination of care across all levels of the continuum. Review indicated potential needs in the following areas: ? Pt in and out of sleep during this visit. Assessment was completed with pt's , Francia Keys [phone], at bedside. ? Admitting Diagnosis: Sepsis ? Pt readmitted with in 30 days: No ?Primary Care Doctor: Dr. Mau Medeiros [phone], last saw this physician three months ago. ? Prior Ability to perform ADL???s: Independent ? Anticipated Changes in performance of ADLS: PT/OT recommending SNF placement. Pt and are agreeable to recommendations and would like referrals submitted to [facility] and [facility]. SW to submit referrals. ? Communication of Needs:??Indonesian, self, A&Ox4? Medication Management: Uses [facility] in [place] ([phone]) ? Current Living Situation: Pt lives with his in their multi level home. There are 14 steps witha railing on one side to enter the home. ? Current Support System:??Francia Keys () [phone] ? Power of Special Delivery Messenger or Guardian: No ? Financial: Retired, insured through Medicare and [employer] ? Transportation: Will have a ride home with his . ? Food: No concerns ? Current Home Medical Equipment:??cane ? Knowledge/Understanding of Dx: Good ? Anticipated On going Care needs: ? Home Health Care None previously Additional Home Medical Equipment Cane Medication Assistance No arlene, uses [facility] Discharge Transportation Will have a ride with his . Medicaid or Other Healthcare Applications Active with Medicare and [employer] Medical Substance Abuse Assessment and Treatment plan N/A Social Work referral for skilled placement needs Referrals submitted to [facility] and [place] Other: Pt is a ? Case Management Plans: Assist patient with obtaining follow up upon discharge Established Dr. Mau Medeiros To follow and re-evaluate patient???s condition at least??weekly??to identify changes that require modification of the plan Yes Complete all Home Care Plans prior to discharge Yes Referral to for Discharge planning has been completed N/A Other: ? Best??address and??telephone # for Patient: ? [address] [place] [address] ? Insurance and demographics verified with patient. ? CHRIS Ibanez?? 07/19/2017 ?? ED to Hosp-Admission (Discharged) on 08/27/2017 ?? Detailed Report ?? documented in this encounter H&P Notes * Louis Mcconnell MD - 09/15/2017 8:47 AM CDT PRE-PROCEDURE HISTORY & PHYSICAL NOTE 09/15/2017 8:47 AM Patient: José Miguel Keys, date of 1950 Procedure(s) planned: EGD Indication(s): PEG placement History: Patient Active Problem List Diagnosis ??? Other ascites ??? Acute embolism and thrombosis of deep vein of lower extremity ??? Other cirrhosis of liver ??? Bacteremia ??? Vitamin D deficiency ??? Local infection of skin and subcutaneous tissue ??? Unspecified staphylococcus as the cause of diseases classified elsewhere ??? Chronic atrial fibrillation ??? Other specified anemias ??? Venous insufficiency (chronic) (peripheral) ??? Other specified dermatitis ??? Impetiginization of other dermatoses ??? Localized edema ??? Hypoxemia ??? Pleural effusion on left ??? Methicillin resistant Staphylococcus aureus infection ??? Extradural and subdural abscess, unspecified ??? Acute respiratory failure with hypoxia ??? Discitis of lumbar region ??? Acute kidney failure ??? Sepsis ??? Severe sepsis without septic shock (CODE) Past Medical History: Diagnosis Date ??? Actinic [...] REPLACEMENT right hip 2005, left hip 2008 Allergies Allergen Reactions ??? Penicillins Skin Reactions and Swelling Current Facility-Administered Medications Medication Dose Route Frequency Provider Last Rate Last Dose ??? magnesium sulfate 2 g in 50 mL bolus 2 g Intravenous Once Delphine Waddell APRN-RFID STRATEGIST ??? ceFAZolin (ANCEF) syringe 2,000 mg 2 g Intravenous Once Vira Wilson MD ??? midazolam (VERSED) 1 mg/mL injection ADS Med ??? fentaNYL (SUBLIMAZE) injection 0.05 mg/mL ADS Med ??? furosemide (LASIX) injection 20 mg 20 mg Intravenous QDAY Veronica Costello MD 20 mg at 09/14/17 0841 ??? fentaNYL (PF) (SUBLIMAZE) injection 50 mcg 50 mcg Intravenous q1h PRN Veronica Costello MD 50 mcgat 09/15/17 0219 ??? *Hold/Avoid Medication Other 08 and 1999 Vita Troncoso MD ??? lidocaine 1% - EPINEPHrine 1:100,000 injection PRN Moise Castaneda MD 2.5 mL at 09/13/17 1710 ??? senna (SENOKOT) tablet 8.6 mg 8.6 mg Enteral Tube BID Delphine Waddell APRN- RFID STRATEGIST 8.6 mg at 09/14/172043 ??? polyethylene glycol 3350 (MIRALAX) packet 17 g 17 g Enteral Tube QDAY PRN Delphine Waddell APRN-RFID STRATEGIST 17 g at 09/11/17 0842 ??? docusate sodium (COLACE) solution 100 mg 100 mg Enteral Tube QDAY Delphine Waddell APRN-RFID STRATEGIST 100mg at 09/14/17 0841 ??? lidocaine (LIDODERM) 5 % patch 1 patch 1 patch Transdermal QDAY Delphine Waddell APRN-CNP 1 patch at 09/14/17 0840 ??? albuterol (PROVENTIL;VENTOLIN) (5 MG/ML) 0.5% nebulizer solution 2.5 mg 2.5 mg Inhalation q4h Jason Nash MD 2.5 mg at 09/15/17 0800 ??? amiodarone (CORDARONE) tablet 200 mg 200 mg Oral BID Jason Nash MD 200 mg at 09/14/172042 ??? aspirin (ASPIRIN) chew tablet 81 mg 81 mg Oral QDAY Jason Nash MD 81 mg at 09/14/17 0843 ??? chlorhexidine (PERIDEX) 0.12 % oral solution Mouth/Throat BID Jason Nash MD 15 mL at 09/14/172042 ??? famotidine (PEPCID) injection 20 mg 20 mg Intravenous BID Jason Nash MD Or ??? famotidine (PEPCID) tablet 20 mg 20 mg Oral BID Jason Nash MD 20 mg at 09/14/172043 ??? glucose (Diabetic Use) oral gel 15-30 g 15-30 g Oral PRN Jason Nash MD ??? glucagon (GLUCAGEN) injection 1 mg 1 mg Intramuscular PRN Jason Nash MD ??? insulin regular human (humuLIN R; novoLIN R) 100 UNIT/ML injection 0-6 Units 0-6 Units Subcutaneous q6h Jason Nash MD 1 Units at 09/14/17 1834 ??? oxyCODONE (immediate release) (ROXICODONE) tablet 5 mg 5 mg Oral q4h PRN Jason Nash MD 5 mg at 09/14/17 1618 ??? 0.9% NaCl injection 10 mL 10 mL Intracatheter PRN Jason Nash MD ??? fentaNYL (SUBLIMAZE) bolus from infusion bag 50 mcg 50 mcg Intravenous BOLUS FROM BAG PRN Jason Nash MD ??? dextrose IV 12.5-25 g 25-50 mL Intravenous PRN Jason Nash MD ??? atorvastatin (LIPITOR) tablet 20 mg 20 mg Oral QDAY Yogesh Duncan MD 20 mg at 09/14/17 0843 Review of systems: Chest pain: No. Shortness of breath: No. Review of systems otherwise negative. Physical Exam: BP 100/60 Pulse 85 Temp 97.8 ??F (36.6 ??C) Resp 14 Ht 1.778 m (5' 10 ) Wt 98.8 kg (217 lb 13 oz) SpO2 99% BMI 31.25 kg/m2 GENERAL: The patient is alert, oriented and in no apparent distress. HEENT: Neck supple, posterior pharynx is clear. LUNGS: Lungs are clear to auscultation. CVS: Heart sounds are normal, no murmurs. ABDOMEN: Soft, no tenderness, masses or organomegaly. EXTREMITIES: Normal. NEURO: Non-focal. Pain assessment: None Sedation Assessment & Plan: [place] Society [employer] Anesthesiologists Classification (PRE-PROCEDURE): ASA 3 Attestation: I have reviewed the pre-procedure nursing assessment. Yes History of previous anesthetic problems/complications including family history? No History of airway problems (difficult intubation, previous tracheostomy? No History of sleep apnea? No Airway Examination: (abnormalities may require Anesthesia consult) Tracheal deviation No Short thick neck/non-visible neck No Neck with limited range of motion No Visible anterior neck mass No Small Mouth Opening and/or sub/mental space (less than 3 finger breadths) No Protruding upper teeth No Oxygen saturation less than 92% on room air No Informed consent on chart (to include moderate sedation) Yes Last oral Intake: (suggested guidelines per ASA: NPO for solids is 6 hours; clear liquids only up to 4 hours prior to procedure) > 6 hours ago Sedation Plan: Moderate sedation Based on the pre-procedure assessment, history and physical, and allergy history, this patient is a suitable candidate for moderate sedation or sedation per anesthesia team during the planned procedure(s). I have discussed the plan, risks, benefits and alternatives with the patient or guardian. Procedure Plan: Based on the above assessment, we will perform the procedures indicated above. When assessment above was not obtained immediately before the procedure, I have reassessed this patient and there are no changes. Pt. Is on a ventilator requiring bedside procedure Louis Mcconnell MD * Vita Troncoso MD - 09/06/2017 2:04 PM CDT H&P Signed by Vita Troncoso MD on 09/06/2017 5:06 PM Author: Vita Troncoso MD Service: Emergency Author Type: Resident Date of Service: 09/06/2017 2:04 PM Filed: 09/06/2017 5:06 PM Note Type: H&P Status: Attested Glaze Supervisor: Vita Troncoso MD (Resident) Cosigner: Jason Nash MD at 09/07/2017 7:39 PM Attestation signed by Jason Nash MD at 09/07/2017 7:39 PM I saw and evaluated the patient, and agree with the resident's findings and plan except for changesas per my note. See resident's note for details. In addition I note- See my other note Jason Nash MD 09/07/2017 [facility] History and Physical Vita Troncoso MD Admit Date: 09/06/2017 PCP: Mau Medeiros Subjective: CC: Shortness of breath HPI: José Miguel Keys is a 66 y.o. male admitted 09/06/2017 with respiratory failure. PMH of COPD, VALENTINA, CAD s/p PCI with stents, Afib w/ RVR, DMII, discitis with osteomyelitis of L1/L2 and DVT [facility]. Patient with recent hospital admission for hypoxia secondary to mucous plugging. Wears BiPAP 14/6/40% at night and on 6L NC during day. Dobhoff feeding tube in place. On ceftaroline and metronidazole for bacteremia due to continue until 09/10/2017 During previous hospitalization 07/14/2017 he was found to have L1/L2 epidural abscess, he was found to have bilateral pleural effusions that were MRSA+ In the ED, patient was intubated for hypoxia and had right IJ placed for hypotension requiring vasopressors. He was found to have lactate of 3.3. WBC of 27.8 with Hb of 8.2 Received levaquin and aztreonam and decadron. Currently, patient intubated and sedated and unable to obtain further history. Database: Past Medical History: Diagnosis Date ??? PAYTON (acute kidney injury) ??? Asthma ??? Atrial fibrillation ??? CAD (coronary artery disease) [place] 1981, last angiogram 2010 ??? Chronic atrial fibrillation 02/22/2017 ??? COPD (chronic obstructive pulmonary disease) ??? Diabetes mellitus ??? Diabetes mellitus type 2 in obese ??? Discitis of lumbar region ??? DVT (deep venous thrombosis) 2008 ??? Dyslipidemia ??? Heart attack ??? Hypertension ??? Obstructive sleep apnea ??? Occlusive thrombus ??? VALENTINA (obstructive sleep apnea) 2013 on CPAP ??? Other cirrhosis of liver ??? Other eczema 02/25/2017 ??? Peripheral neuropathy ??? Ulcerative colitis Past Surgical History: Procedure Laterality Date ??? HX JOINT REPLACEMENT ??? HX JOINT REPLACEMENT right hip 2005, left hip 2008 Allergies Allergen Reactions ??? Penicillins Hives and Swelling Social History Substance Use Topics ??? Smoking status: Former Smoker Quit date: 1981 ??? Smokeless tobacco: Never Used ??? Alcohol use No Family History Problem Relation Age of Onset ??? CVA Neg Hx ??? Cancer - Breast Neg Hx ??? Cancer - Other Neg Hx ??? Cancer - Skin, Non-Melanoma Neg Hx ??? Cancer - Skin,Melanoma Neg Hx ??? Cirrhosis Father ??? Coronary Artery Disease Mother age 65 ??? Eczema Neg Hx ??? Hemophilia Neg Hx ??? Psoriasis Neg Hx No current facility-administered medications on file prior to encounter. Current Outpatient Prescriptions on File Prior to Encounter Medication Sig Dispense Refill ??? albuterol (5 MG/ML) 0.5% nebulizer solution 0.5 mLs by Nebulization route every 6 hours. 1 Box 11 ??? amiodarone (PACERONE) 200 MG tablet 1 tablet by Oral/FT route 2 TIMES DAILY. 30 tablet 11 ??? clobetasol (TEMOVATE) 0.05 % cream Apply to sacrum, face and any other topical location that itches 60 g 11 ??? hydrOXYzine (ATARAX) 25 MG tablet Take 1 tablet by mouth 2 TIMES DAILY. 90 tablet 11 ??? insulin lispro (HUMALOG) 100 UNIT/ML 0-12 Units by Subcutaneous route Every 4 hours. 10 mL 3 ??? lidocaine (LIDODERM) 5 % patch 2 patches by Transdermal route Daily. 10 patch 11 ??? oxyCODONE (ROXICODONE) 5 MG immediate release tablet 1 tablet by Oral/FT route Every 8 hours. 30 tablet 0 ??? oxyCODONE (ROXICODONE) 5 MG immediate release tablet 1 tablet by Oral/FT route Every 4 hours asneeded. 30 tablet 0 ??? sodium chloride 7 % Nebu Soln Take 4 mLs by inhalation 2 TIMES DAILY. 448 mL 11 ??? lactulose (DUPHALAC) 10 GM/15ML solution Take 30 mLs by mouth 3 times daily for 30 days. 2700 mL 0 ??? ferrous sulfate 325 (65 FE) MG tablet Take 1 tablet by mouth Daily. ??? senna-docusate (PERICOLACE) 8.6-50 MG per tablet Take 1 tablet by mouth Daily. ??? amLODIPine (NORVASC) 5 MG tablet Take 5 mg by mouth Daily. ??? clobetasol (TEMOVATE) 0.05 % ointment by Topical route 2 times daily as needed. Apply to affected area twice daily as needed ??? ergocalciferol 11053 UNITS Cap Take 50,000 Units by mouth Every 7 days. ??? PROAIR HFA 108 (90 BASE) MCG/ACT inhaler Take 2 puffs by inhalation Every 6 hours as needed forWheezing or Shortness of Breath. ??? metFORMIN (GLUCOPHAGE) 500 MG tablet Take 500 mg by mouth 2 TIMES DAILY. 3 ??? pantoprazole (PROTONIX) 40 MG Tablet Delayed Response TAKE 1 TABLET BY MOUTH EVERY DAY BEFORE MEALS 12 ??? XARELTO 20 MG Tab tablet Take 20 mg by mouth Daily. 3 ??? atorvastatin (LIPITOR) 20 MG tablet Take 20 mg by mouth Daily. 6 ??? aspirin chewable 81 MG tablet Take 81 mg by mouth Daily. ??? clobetasol (TEMOVATE) 0.05 % cream APPLY TO AFFECTED AREA TWICE A DAY NEEDED 0 ??? Vitamin D, Ergocalciferol, 33719 UNITS Cap Take 1 capsule by mouth Every 7 days. For 12 doses. Take with food. 12 capsule 0 ??? clobetasol (TEMOVATE) 0.05 % ointment Apply to red and itchy area on trunk and limbs twice daily. 30 day supply. 60 g 5 ??? amLODIPine (NORVASC) 5 MG tablet TAKE 1 TABLET EVERY DAY 3 ??? atorvastatin (LIPITOR) 20 MG tablet TAKE 1 TABLET BY MOUTH EVERY DAY 6 ??? furosemide (LASIX) 20 MG tablet Take 20 mg by mouth Daily. 3 ??? pantoprazole (PROTONIX) 40 MG Tablet Delayed Response TAKE 1 TABLET BY MOUTH EVERY DAY BEFORE MEALS 12 ??? XARELTO 20 MG Tab tablet TAKE 1 TABLET EVERY DAY 6 ??? metFORMIN (GLUCOPHAGE) 500 MG tablet TAKE 1 TABLET BY MOUTH TWICE A DAY 3 ??? aspirin 81 MG tablet Take 81 mg by mouth Daily. ??? cyanocobalamin 500 MCG tablet Take 1,000 mcg by mouth Daily. Objective: Patient Vitals for the past 8 hrs (Last 1 readings): BP Temp Temp src Pulse Resp SpO2 Height Weight 09/06/17 1311 136/83 - - - 20 94 % - - 09/06/17 1240 138/84 96.3 ??F (35.7 ??C) Bladder 102 20 93 % - - 09/06/17 1235 (!) 125/98 - - 99 20 97 % - - 09/06/17 1230 (!) 132/98 - - 97 20 98 % - - 09/06/17 1225 (!) 138/97 - - 101 20 98 % - - 09/06/17 1220 108/80 - - 97 17 99 % - - 09/06/17 1215 (!) 141/91 - - - 20 - - - 09/06/17 1210 (!) 131/103 - - - 19 - - - 09/06/17 1200 (!) 144/91 - - - 20 - - - 09/06/17 1155 (!) 146/93 - - - 23 - - - 09/06/17 1150 (!) 144/92 - - - 20 - - - 09/06/17 1141 (!) 80/33 - - - 20 - - - 09/06/17 1126 (!) 52/38 - - 73 (!) 39 (!) 77 % 5' 10 (1.778 m) 220 lb (99.8 kg) Wt Readings from Last 3 Encounters: 09/06/17 220 lb (99.8 kg) 09/04/17 217 lb 1.6 oz (98.5 kg) 08/14/17 225 lb 9.6 oz (102.3 kg) PHYSICAL EXAMINATION: General: Intubated and sedated (8.0 ETT) Head: Normocephalic, without obvious abnormality, atraumatic. Eyes: Conjunctivae/corneas clear. PERRL, no icterus Throat: Lips, mucosa, and tongue normal. Teeth and gums normal. Neck: Supple, symmetrical, trachea midline, no adenopathy, thyroid: no enlargment/tenderness/nodules, no carotid bruit and no JVD. Lungs: Course breath sounds bilaterally R>L Heart: Tachycardia, S1, S2 normal, difficult to ausculate in the setting on coarse breath sounds Abdomen: Soft, non-tender. Bowel sounds normal. No masses, No organomegaly. Extremities: No cyanosis, clubbing or edema. Warm peripheries. Pulses: Present in all extremities and symmetric all distal extremities. Neurologic: Patient sedated, overbreathes the vent, purposeful movement Data Review: CBC: Recent Labs 09/06/17 1157 09/04/17 0447 WBC 27.8 H 11.0 H HGB 8.2 L 7.7 L MCV 95.3 92.4 PLT 432 H 339 BMP: Recent Labs 09/06/17 1211 09/06/17 1157 09/04/17 0447 NA 143 141 K 3.8 3.8 4.9 H CL 108 H 107 CO2 20 L 27 BUN 21 11 CREATININE 0.7 0.6 GLU 170 H 87 Recent Labs 09/06/17 1157 09/04/17 0447 CALCIUM 8.5 8.4 MG 1.5 L PHOS 2.9 LFT: Recent Labs 09/06/17 1157 09/04/17 0447 PROT 6.2 5.3 L ALB 1.8 L 1.5 L ALKPHOS 204 H 190 H AST 21 27 ALT 10 12 TBILI 0.3 0.3 Coagulation: Recent Labs 09/06/17 1157 PT 24.5 H INR 2.2 No results found for: DDIMER Cardiac markers: Recent Labs 09/06/17 1157 TROPONINI 0.027 ABGs: Recent Labs 09/06/17 1211 PO2ART 152 H [id number] 55 H [id number] 25.0 Urine Studies: Lab Results Component Value Date COLORU Yellow 08/26/2017 CLARITYU Clear 08/26/2017 LABSPEC 1.007 08/26/2017 PHUR 6.0 08/26/2017 PROTEINTO 57 07/15/2017 KETONES Negative 08/26/2017 BILIRUBINUR Negative 08/26/2017 BLOODU Negative 08/26/2017 NITRITE Negative 08/26/2017 LEUKOCYTE Negative 08/26/2017 UROBILINOGEN <2.0 08/26/2017 WBCU 1 08/26/2017 URINEBACT Rare 08/26/2017 YEASTBUDDING Many (A) 08/09/2017 Thyroid Fxn: Lab Results Component Value Date TSH 2.518 07/24/2017 MICRO: Radiology: Chest Xray 09/06/17 : by my read, original CXR with diffuse haziness of left lung, right pleural effusion with costophrenic blunting Repeat CXR after bronch with decrease in left lung opacity Assessment & Plan: 66 y.o. male 1. Acute hypoxic hypercapnic respiratory failure 2. MRSA bacteremia 3. Lactic acidosis 4. Leukocytosis 5. Normocytic Anemia 6. Encephalopathy Neuro/Psych: Encephalopathy - likely secondary to hypoxemia Cardiovascular: Afib with RVR on xarelto - continue xarelto - rate control with diltiazem 30 mg QID - continue amiodarone 200 mg CAD - continue 81 mg ASA Pulmonary: Acute Hypoxic Hypercapnic Respiratory Failure - Intubated AC (20/460/+10/60%) - chest physiotherapy Mucous Plugging causing Atelectasis - signifigant mucous plugging on bronch, anticipate will need further bronchoscopies COPD - q6H albuterol GI/Nutrition: Tube feeds - continue with Promote with Fiber 60 mL/hr, hold for high residuals - continue H2 Renal/Electrolytes/Acid-Base: Lactic Acidosis - lactic trending down Infectious Disease: MRSA + Discitis - continue flagyl and ceftaroline due to continue until 09/10 Hematology/Oncology: Chronic Normocytic Anemia - appears to be at baseline, will continue to monitor Coagulopathy - elevated INR 2.2 - will repeat in AM Endocrine: DM - hold home metformin - SS insulin - anticipate elevated BG given recent steriods GI prophylaxis:H2 DVT prophylaxis: lovenox 40 mg, plan to restart xarelto tomorrow Lines: PIV, RIJ, gloria, ETT Diet: tube feeds Code Status: full code Vita Troncoso MD documented in this encounter Procedure Notes * Louis Mcconnell MD - 09/15/2017 9:30 AM CDTAssociated Order(s): EGD EGD and PEG placement performed. Report to follow. Well tolerated. Normal EGD. PEG placed without difficulty. REC.: may use PEG for meds and H2O flushes today. Resume TF's tomorrow after clearance by Gi fellow. * Veronica Costello MD - 09/09/2017 2:49 PM CDT Procedures Signed by Veronica Costello MD on 09/09/2017 2:54 PM Author: Veronica Costello MD Service: Pulmonary Critical Care Author Type: Resident Date of Service: 09/09/2017 2:49 PM Filed: 09/09/2017 2:54 PM Note Type: Procedures Status: Attested Glaze Supervisor: Veronica Costello MD (Resident) Related Notes: Original Note by Veronica Costello MD (Resident) filed at 09/09/2017 2:52 PM Cosigner: Jason Nash MD at 09/09/2017 3:45 PM Attestation signed by Jason Nash MD at 09/09/2017 3:45 PM I was present for the entire procedure. CXR ordered and shows slightly improved aeration. Jason Nash MD 09/09/2017/3:44 PM Bronchoscopy Procedure Note Pre-op Diagnosis: Pneumonia, Atelectasis, Hypoxemic Respiratory Failure and Mucous Plugging. Procedure by: Veronica Costello MD Assistants: Dr Justin Nash MD Sedation/Analgesia: midazolam and fentanyl, neuromuscular relaxation None Procedure Details Informed consent was obtained for the procedure, including possible sedation. Risks of hypoxemia, lung injury/perforation, hemorrhage, infection, arrhythmia, and adverse drug reaction were discussed. Time-Out Process performed, verified patient identification, verified procedure, verified correct patient position, special equipment available. Prior to the administration of sedation, adequate oxygenation and ventilation was assured by adjusting mechanical ventilator to 1.0 faina of oxygen and matching the patients minute ventilation. The bronchoscope was advanced through the bronch adapter and the ET tube into the trachea. Endotracheal Tube: patent, clear of secretions Trachea: appeared normal Right and Left Mainstem: copious clear frothy secretions/ These were suctioned clear. Right Upper/Middle/Lower Lobes: appeared normal and patent. There were some clear secretions noted in the right lower lobe. These were suctioned clear. Left Upper/Lower Lobes: copious clear tenacious secretions present more so in the Lingula. Therapeutic suctioning was performed from all these lobes and sub segments. BAL: no Complications: None; patient tolerated the procedure well. Condition: stable. Attending Attestation: This procedure was performed independently of the time included in today's admission/progress note(s). This procedure was performed under the direct supervision of Dr. Nash, who was present for the entire procedure. * Ivonne Rubin MD - 09/09/2017 4:13 AM CDT Procedures Signed by Ivonne Rubin MD on 09/09/2017 4:14 AM Author: Ivonne Rubin MD Service: Medical ICU Author Type: Resident Date of Service: 09/09/2017 4:13 AM Filed: 09/09/2017 4:14 AM Note Type: Procedures Status: Signed Glaze Supervisor: Ivonne Rubin MD (Resident) Cosigner: Jason Nash MD at 09/09/2017 3:43 PM Endotracheal Intubation Procedure Note Indications: hypoxemia Surgeon: Ivonne Rubin MD Assistants: none Procedure: Pre-oxygenation with 1.0 faina oxygen Ambu bag:yes Oral airway: no Sedation: midazolam and etomidate Paralytic: rocuronium Equipment: Juan 3 laryngoscope blade. Cricoid Pressure: no Number of attempts: 1 ETT location confirmed by by auscultation, by CXR and ETCO2 monitor ETT secured at 23 cm Oxygen saturation: Remained greater than 90% during the procedure. Complications: None; patient tolerated the procedure well. Condition stable. Recommendations: CXR ordered to verify placement. * Veronica Costello MD - 09/08/2017 12:00 PM CDT Procedures Signed by Veroinca Costello MD on 09/08/2017 5:08 PM Author: Veronica Costello MD Service: Pulmonary Critical Care Author Type: Resident Date of Service: 09/08/2017 12:00 PM Filed: 09/08/2017 5:08 PM Note Type: Procedures Status: Attested Glaze Supervisor: Veronica Costello MD (Resident) Cosigner: Jason Nash MD at 09/08/2017 9:56 PM Procedures: 1. CHEST TUBE INSERTION [[id number] (Custom)] Attestation signed by Jason Nash MD at 09/08/2017 9:56 PM I was present for the entire procedure. Will try thrombolytic and DNAse. Jason Nash MD 09/08/2017/9:56 PM 14Fr Chest Tube Insertion Procedure Note Indications: Clinically significant Effusion. Surgeon: Veronica Costello MD Assistants: Dr Justin Nash MD Sedation/Analgesia: fentanyl Procedure Details Informed consent was obtained for the procedure, including possible sedation. Risks of lung injury/perforation, hemorrhage, infection, arrhythmia, and adverse drug reaction were discussed. Time-Out Process performed, verified patient identification, verified procedure, verified site/side, verified correct patient position, special equipment/implants available. Under sterile conditions (hand hygiene prior to donning gloves, gown, mask, sterile drape), the skin overlying the left chest was prepped with chlorohexadine and draped in a sterile fashion. The skinwas infiltrated with lidocaine. A finder needle was used to access the pleural space. Pleural fluid was obtained. A guidewire was advanced through the finder needle. The needle was removed and a nickwas made with a scalpel. The dilator was advanced over the guidewire and removed. A 14 Gambian tube was placed in the left lateral rib space over the guidewire and sutured in place. The chest tube wasplaced to waterseal. Tidalling was present. The wound area was anesthetized with Lidocaine 2% without epinephrine. Findings: 50 ml of serous fluid obtained. Complications: None; patient tolerated the procedure well. Condition: stable. Attending Attestation: This procedure was performed independently of the time included in today's admission/progress note(s). This procedure was performed under the direct supervision of Dr. Nash, who was present for the entire procedure. Veronica Costello MD Pulmonary / Critical Care Fellow Division of Pulmonary, Critical Care, & Sleep Medicine [facility] Pager: [phone] * Veronica Costello MD - 09/06/2017 2:10 PM CDT Procedures Signed by Veronica Costello MD on 09/06/2017 5:11 PM Author: Veronica Costello MD Service: Pulmonary Critical Care Author Type: Resident Date of Service: 09/06/2017 2:10 PM Filed: 09/06/2017 5:11 PM Note Type: Procedures Status: Attested Glaze Supervisor: Veronica Costello MD (Resident) Related Notes: Original Note by Veronica Costello MD (Resident) filed at 09/06/2017 5:11 PM Cosigner: Jason Nash MD at 09/09/2017 3:44 PM Procedures: 1. BRONCHOSCOPY FLEXIBLE [PRO45 (Custom)] Attestation signed by Jason Nash MD at 09/09/2017 3:44 PM (Updated) I was present for the entire procedure. Therapeutic suctioning performed both lungs. Jason Nash MD 09/07/2017/7:40 PM Bronchoscopy Procedure Note Pre-op Diagnosis: Pneumonia, Hypoxemic Respiratory Failure and Mucous Plugging. Procedure by: Veronica Costello MD Sedation/Analgesia: midazolam and fentanyl, neuromuscular relaxation None Procedure Details Informed consent was obtained for the procedure, including possible sedation. Risks of hypoxemia, lung injury/perforation, hemorrhage, infection, arrhythmia, and adverse drug reaction were discussed. Time-Out Process performed, verified patient identification, verified procedure, verified correct patient position, special equipment available. Prior to the administration of sedation, adequate oxygenation and ventilation was assured by adjusting mechanical ventilator to 1.0 faina of oxygen and matching the patients minute ventilation. The bronchoscope was advanced through the bronch adapter and the ET tube into the trachea. Endotracheal Tube: patent, clear of secretions Trachea: appeared normal and copious secretions Right and Left Mainstem: copious secretions Right Upper/Middle/Lower Lobes: appeared normal and partially occluded with secretions Left Upper/Lower Lobes: copious secretions BAL: no Complications: None; patient tolerated the procedure well. Condition: stable. Attending Attestation: This procedure was performed independently of the time included in today's admission/progress note(s). This procedure was performed under the direct supervision of Dr. Nash, who was present for the entire procedure. documented in this encounter Consult Notes * Vira Wilson MD - 09/14/2017 1:23 PM CDT GASTROENTEROLOGY CONSULT José Miguel Keys Age: 66 y.o. Date of : 1950 Date of Admission: 09/06/2017 Reason for Consult: Concern for feeding difficulties History of Present Illness: José Miguel Keys is a 66 y.o. male with a PMH significant for COPD, VALENT[place], CAD s/p PCI, Afib with RVR, DVT, (on xarelto), discitis with OM of L1/L2 [facility] antibx for prior bacteremia with end date of 09/10/2017. He was admitted with hypoxia. Baseline O2 requirements include BiPAP 14/6/40% at night and on 6L NC during day. Per pt's , he has been receiving supplemental feeds via DHT for the past month at his facility due to weakness resulting in inadequate oral intake. Prior hospitalization were significant for L1/L2 epidural abscess and b/l pleural effusions, both positive for MRSA. Prior hypoxic event was related to mucous plugging s/p bronch with improvement andsuccessful extubation. Hospital course: Pt was intubated in the ER for hypoxia and required vasopressors and CVC for hypoxia. His labwork was concerning for infection process with a wbc 27.8, he was initiated on broad antibx (levaquin and aztreonam) and decadron. He completed a bronch 09/06/17 significant for thick secretions, L mainstem bronchus was obstructed. He underwent chest tube insertion for large pleural effusion which required alteplase to resolve loculations. He was extubated 09/07, however redeveloped hypoxemia requiring re- intubation 09/09. Trach placed 09/13/17 by ENT. Has been receiving feeds via DHT during hospitalization. Past Medical History: Asthma, COPD, VALENTINA, Chronic resp failure requiring home O2 and bipap at night,CAD s/p PCI, Chronic Afib, hx DVT on anticoagulation, DM, HLD, HTN, cirrhosis based on recent abdominal imaging, UC s/p lialda now off therapy Past Surgical History: Hx joint replacement, trach 09/13/17 Medications: Prescriptions Prior to Admission: albuterol (PROVENTIL;VENTOLIN) (5 MG/ML) 0.5% nebulizer solution Inhale 2.5 mg by mouth every 6 hours Disp: Rfl: amiodarone (CORDARONE) 200 MG tablet Take 200 mg by mouth 2 times daily Disp: Rfl: hydrOXYzine hcl (ATARAX) 25 MG tablet Take 25 mg by mouth 2 times daily Disp: Rfl: insulin lispro (HUMALOG) 100 UNIT/ML vial Inject 0-12 Units subcutaneously every 4 hours Disp: Rfl: lidocaine (LIDODERM) 5 % patch Apply 2 patches to skin once daily Disp: Rfl: oxyCODONE, immediate release, (ROXICODONE) 5 MG tablet Take 5 mg by mouth every 8 hours Disp: Rfl: oxyCODONE, immediate release, (ROXICODONE) 5 MG tablet Take 5 mg by mouth every 4 hours as needed for Pain Disp: Rfl: albuterol HFA (PROAIR HFA) 108 (90 BASE) MCG/ACT inhaler Inhale 2 puffs by mouth q6h PRN (Wheezing,Shortness of Breath). Disp: Rfl: midodrine (PROAMATINE) 10 MG tablet Take 10 mg by mouth TID. Disp: 60 tablet Rfl: 3 tiotropium (SPIRIVA HANDIHALER) 18 MCG inhalation capsule Inhale 18 mcg by mouth DAILY. (Patient not taking: Reported on 09/09/2017) Disp: 30 capsule Rfl: 3 lactulose (CHRONULAC) 10 GM/15ML solution Take 20 g by mouth TID for 30 days. (Patient taking differently: Take 30 mL by mouth 3 times daily For 30 days Starting 08/16/2017) Disp: 2,700 mL Rfl: 0 doxepin (SINEQUAN) 50 MG capsule Disp: 90 tablet Rfl: 1 senna-docusate (SENOKOT-S) 8.6-50 MG tablet Take 1 tablet by mouth DAILY. Disp: Rfl: Multiple Vitamin (DAILY VITES) TABS Take 1 tablet by mouth DAILY. Disp: Rfl: ferrous sulfate 325 (65 FE) MG tablet Take 1 tablet by mouth DAILY. Disp: Rfl: ergocalciferol (DRISDOL) 57966 UNITS capsule Take 50,000 Units by mouth q7days. Disp: Rfl: doxepin (SINEQUAN) 50 MG capsule Take 50 mg by mouth. Disp: Rfl: clobetasol (TEMOVATE) 0.05 % ointment Apply to affected area BID PRN. Disp: Rfl: amLODIPine (NORVASC) 5 MG tablet Take 5 mg by mouth DAILY. Disp: Rfl: rivaroxaban (XARELTO) 20 MG tablet Take 20 mg by mouth DAILY. Disp: Rfl: 3 lisinopril-hydroCHLOROthiazide (PRINZIDE; ZESTORETIC) 10-12.5 MG tablet Disp: Rfl: 3 pantoprazole EC (PROTONIX) 40 MG tablet Disp: Rfl: 12 atorvastatin (LIPITOR) 20 MG tablet Take 20 mg by mouth DAILY. Disp: Rfl: 6 aspirin (ASPIRIN) 81 MG chew tablet Take 81 mg by mouth DAILY. Disp: Rfl: budesonide-formoterol (SYMBICORT) 160-4.5 MCG/ACT inhaler Inhale 2 puffs by mouth BID. (Patient nottaking: Reported on 09/09/2017) Disp: Rfl: cyanocobalamin (VITAMIN B-12) 500 MCG tablet Take 500 mcg by mouth DAILY. (Patient not taking: Reported on 09/09/2017) Disp: Rfl: furosemide (LASIX) 20 MG tablet Take 20 mg by mouth BID. (Patient not taking: Reported on 09/09/2017)Disp: Rfl: metFORMIN (GLUCOPHAGE) 500 MG tablet Take 500 mg by mouth BID. Disp: Rfl: 3 cetirizine (ZYRTEC) 10 MG tablet Take 10 mg by mouth DAILY. Disp: Rfl: metoprolol succinate XL 24hr (TOPROL XL) 100 MG tablet Take 100 mg by mouth DAILY. Disp: Rfl: 1 clobetasol (TEMOVATE) 0.05 % cream Disp: Rfl: 0 vitamin D, ergocalciferol, (DRISDOL) 98897 UNITS capsule Take 1 capsule by mouth q7days. (Patient taking differently: Take 1 capsule by mouth q7days Every 7 days for 12 doses. Take with food, starting 05/02/2017) Disp: 12 capsule Rfl: 0 clobetasol (TEMOVATE) 0.05 % ointment Disp: 60 g Rfl: 5 mupirocin (BACTROBAN) 2 % ointment Disp: 30 g Rfl: 2 cyanocobalamin (VITAMIN B-12) 500 MCG tablet Take 1,000 mcg by mouth DAILY. Disp: Rfl: amLODIPine (NORVASC) 5 MG tablet Disp: Rfl: 3 atorvastatin (LIPITOR) 20 MG tablet Disp: Rfl: 6 pantoprazole EC (PROTONIX) 40 MG tablet Disp: Rfl: 12 aspirin (ASPIRIN) 81 MG tablet Take 81 mg by mouth DAILY. Disp: Rfl: furosemide (LASIX) 20 MG tablet Take 20 mg by mouth DAILY. Disp: Rfl: 3 lisinopril-hydroCHLOROthiazide (PRINZIDE; ZESTORETIC) 10-12.5 MG tablet Disp: Rfl: 1 metFORMIN (GLUCOPHAGE) 500 MG tablet Disp: Rfl: 3 metoprolol succinate XL 24hr (TOPROL XL) 100 MG tablet Take 100 mg by mouth DAILY. Disp: Rfl: 11 budesonide-formoterol (SYMBICORT) 80-4.5 MCG/ACT inhaler Inhale by mouth. (Patient not taking: Reported on 09/09/2017) Disp: Rfl: triamcinolone acetonide (KENALOG) 0.1 % cream Disp: Rfl: 1 rivaroxaban (XARELTO) 20 MG tablet Disp: Rfl: 6 betamethasone dipropionate augmented (DIPROLENE AF) 0.05 % cream Disp: Rfl: 4 Current Facility-Administered Medications: magnesium sulfate 2 g in 50 mL bolus furosemide (LASIX) injection 20 mg fentaNYL (PF) (SUBLIMAZE) injection 50 mcg enoxaparin (LOVENOX) injection 40 mg lidocaine 1% - EPINEPHrine 1:100,000 injection senna (SENOKOT) tablet 8.6 mg polyethylene glycol 3350 (MIRALAX) packet 17 g docusate sodium (COLACE) solution 100 mg lidocaine (LIDODERM) 5 % patch 1 patch albuterol (PROVENTIL;VENTOLIN) (5 MG/ML) 0.5% nebulizer solution 2.5 mg amiodarone (CORDARONE) tablet 200 mg aspirin (ASPIRIN) chew tablet 81 mg chlorhexidine (PERIDEX) 0.12 % oral solution famotidine (PEPCID) injection 20 mg Or famotidine (PEPCID) tablet 20 mg glucose (Diabetic Use) oral gel 15-30 g glucagon (GLUCAGEN) injection 1 mg insulin regular human (humuLIN R; novoLIN R) 100 UNIT/ML injection 0-6 Units metroNIDAZOLE (FLAGYL) tablet 500 mg oxyCODONE (immediate release) (ROXICODONE) tablet 5 mg 0.9% NaCl injection 10 mL fentaNYL (SUBLIMAZE) bolus from infusion bag 50 mcg dextrose IV 12.5-25 g atorvastatin (LIPITOR) tablet 20 mg ceftaroline (TEFLARO) 600 mg in 0.9% NaCl 70 mL IVPB Allergies: -- Penicillins -- Skin Reactions and Swelling Social History: Smoking status: Former Smoker Quit date: 06/06/1981 Smokeless tobacco: Never Used Alcohol use No No reported significant ETOH use. Max weight estimated to be around 250 lbs. No reports hx of IVDU or tattoos. Family History: family history includes Cirrhosis in his father; Coronary Artery Disease in his mother. There is nohistory of Cancer - Breast, CVA, Hemophilia, Cancer - Other, Eczema, Psoriasis, Cancer - Skin, Non Melanoma, or Cancer - Skin, Melanoma. Limited Review of Systems: (positive symptoms bolded) based on nods from pt while on the ventilator General: No fever, chills Respiratory: Cough, sob Cardiovascular: No chest pain, palpitations Gastrointestinal: As per HPI MSK: Generalized weakness. Hematology: No easy bruising, bleeding Skin: No significant new skin rashes or lesions Physical Exam: BP 98/57 Pulse 95 Temp 98.4 ??F (36.9 ??C) Resp 21 Ht 1.778 m (5' 10 ) Wt 93.9 kg (207 lb 0.2 oz) SpO2 96% BMI 29.7 kg/m2 General: Laying in bed, no distress HEENT: EOMI. Anicteric sclera, fresh trach with dressing Lungs: On the ventilator, clear to auscultation bilaterally, no w/r/r Heart: Regular rate and rhythm, normal s1-s2 Abdomen: Soft, non-tender, non-distended, bowel sounds normal, no RT/guarding Rectal: Deferred Extremities: Trace LE edema L > R Skin: No obvious rashes or lesions, no jaundice Neuro: Nods/shakes head and writes out questions/answers appropriately, following commands Data: Labs: Recent Labs Component Name 09/14/17 0521 09/13/17 0517 09/12/17 0514 09/11/17 0437 09/10/17 0504 09/09/17 0422 09/07/17 0428 09/06/17 1157 08/26/17 1420 WBC 10.1 8.9 9.5 11.0* 11.0* 18.9* - - - - - HGB 8.7* 8.5* 8.6* 8.7* 8.0* 9.1* - - - - - MCV 94.7 93.6 96.3 95.8 94.8 95.4 - - - - - PLT 224 213 185 234 249 426* - - - - - INR - - - 1.1 - 1.3 1.6 - 2.2 - 1.3 - = values in this interval not displayed. Recent Labs Component Name 09/14/17 0521 09/13/17 0517 09/12/17 0514 09/06/17 1621 09/06/17 1211 07/29/17 1130 NA 138 139 139 - - - - - K - - - - 4.2 3.8 - 3.3* CL 96* 96* 98 - - - - - CO2 32* 31* 28 - - - - - BUN 21 26 35* - - - - - CREATININE 0.6 0.6 0.7 - - - - - - = values in this interval not displayed. Recent Labs Component Name 09/06/17 1157 09/04/17 0447 09/03/17 0431 AST 21 27 26 ALT 10 12 12 ALKPHOS 204* 190* 212* TBILI 0.3 0.3 0.3 ALB 1.8* 1.5* 1.5* HBVc nonreactive HBVs nonreactive HBVs Ag nonreactive HCV Ab nonreactive Imaging (per radiology report): CXR 09/14/17: Interval placement of a tracheostomy tube is seen with the tip terminating in the superior thoracictrachea. The weighted tip feeding tube terminates in the gastric body. A left pigtail thoracostomy tube is unchanged in position, projecting over the left costophrenic angle. The layering left pleural effusion with associated atelectasis/airspace disease is not significantly changed in the interval. Left upper lobe infiltrates persist. The small right pleural effusion andassociated atelectasis/airspace disease is unchanged. No pneumothorax is identified. The cardiomediastinal silhouette is partially obscured and remains enlarged. Pulmonary vascular congestion. KUB 09/13/17: A weighted tip feeding tube is seen terminating in the proximal stomach, just distal to the gastroesophageal junction. Catheter tubing in the left lower chest is incompletely imaged. An interbody fusion cage is identified at the L1-2 level. The right hip arthroplasty screw is partially imaged. CT A/P with contrast 08/26/2017: The liver enhances homogenously. The gallbladder is [...] appears unchanged. There is no evidence of renalcalculi or hydronephrosis. The esophagus and stomach appear [...] free fluid is identified within the abdomen. CT A/P without contrast 08/2017: 1. Interval decrease in size of a now small left hydropneumothorax with unchanged position of the left thoracostomy tube. There is unchanged patchy consolidation within the lingula and left lower lobe with groundglass and tree-in-bud opacities in the left upper lobe likely representing infection/aspiration. 2. Interval decrease in size of a now small right pleural effusion status post right pigtail catheter placement. Convex margins to the right pleural effusion and a rounded component in the right major fissure likely represent loculation. 3. Interval placement of an interbody cage at L1-2 for treatment of discitis osteomyelitis at L1-2.There is increased asymmetric enlargement of the left iliopsoas muscle with areas of hyperattenuation laterally representing a combination of psoas abscess and postoperative hemorrhage. 4. Interval decrease in enlargement of right psoas muscle representing resolving right psoas abscess, although suboptimally evaluated without intravenous contrast. 5. Unchanged endplate centered erosions at T6-T7 representing discitis osteomyelitis with associated paraspinal soft tissue thickening. Abd U/S 09/10/17: The liver is incompletely imaged but demonstrates coarse echotexture and nodular surface, consistent with cirrhosis. No discrete hepatic mass or intrahepatic biliary dilatation is seen. Limited evaluation of the hepatic vasculature demonstrates patent hepatic veins and main portal vein No gallstones or pericholecystic fluid is seen. The gallbladder is within normal limits in size. A small nondependent isoechoic nodule near the neck of the gallbladder measures 0.9 x 0.6 cm and does not demonstrate posterior shadowing, most consistent with small polyp or adherent sludge. The gallbladder wall is mildly thickened, measuring 3-4 mm. Sonographic Maria's sign is negative, although diffuse abdominal tenderness is noted by the technologist. The common bile duct is at the upper limits of normal, measuring 8 mm. Previous Endoscopy: None on file for review. Reports of 2 colonoscopies that diagnosed UC and subsequently demonstrateddisease remission per pt's . Impression: Assessment: Mr. Keys is a 66 year old M with hx significant for recent MRSA discitis and pleural effusion who presented with resp failure with difficulty weaning ventilator, now s/p trach. GI consulted for PEG placement due to expected feeding difficulties. # Feeding difficulties # Acute hypoxic hypercapnic resp failure: s/p trach # Hx MRSA infections: Currently on ceftaroline + flagyl # Leukocytosis # Normocytic anemia # Encephalopathy # Afib with RVR on xarelto as outpt, now on hold # Image findings suggestive of cirrhosis: ATs wnl, INR 1.1 recently, plts 224. Potentially 2/2 NALFD/RAYGOZA. No significant ETOH use reported. Hepatitis panel negative. # Documented hx of UC: No documented scopes on file for review. No CT findings to suggest active colitis. Not on meds for this at this time. Patient seems to have a functional GI tract and an anticipated life expectance > 30 days with malnutrition / poor volitional intake / malabsorption / need for gastric decompression / permanent neurological impairment . Patient has no absolute contraindications for PEG tube placement. Recommendations: - Plan for PEG tube placement tomorrow if patient's clinical condition remains stable - Goal: Hb >7, Plts >50, INR <1.5, K 4, Mg 2 - Please keep patient NPO / stop enteral feeds at midnight - Ok to continue ASA but does increase his risk of bleeding - Pt currently on ceftaroline however last dose seems to be ordered for this evening. Will likely order cefazolin 2 grams to be given within one hour of procedure (unless other antibiotic is given within 30 minutes of procedure) - Consent obtained and placed in patients chart I discussed the indications for PEG given the patient's current medical condition. I discussed the technical aspects of the procedure as well as the risks of the procedure including but not limited to adverse medication reactions, aspiration, infection, bleeding, perforation, . Additional quest ions were answered and consent for the procedure was obtained from patient's . Patient was present and demonstrated agreement (nods) with this decision. Patient and above recommendations will be discussed with GI attending, Dr. Lee. We appreciate the opportunity to be involved in the care of this patient. Please do not hesitate tocontact us with and further questions or concerns. Vira Wilson MD Gastroenterology Fellow Pager: [phone] Associated attestation - Elizabeth Lee MD - 09/14/2017 8:07 PM CDT [facility] GI Attending José Miguel Kramer Keys is a 66 y.o. male who was seen and examined with the GI fellow 09/14/2017. I agree with their note attached. In addition, I note patient with complex recent medical illness, including hypoxic respiratory failure. Status post trach and in need of shelter nutrition for rehab as he is unable to maintain nutrition orally. My exam confirms their physical examination findings. In addition, I note BP 109/65 Pulse 83 Temp 98.3 ??F (36.8 ??C) Resp 18 Ht 1.778 m (5' 10 ) Wt 93.9 kg (207 lb 0.2 oz) SpO2 100% BMI 29.7 kg/m2 trach. In place On vent No abdominal scars. Trace LE edema. Recent Labs Component Name 09/14/17 0521 09/13/17 0517 09/12/17 0514 WBC 10.1 8.9 9.5 HGB 8.7* 8.5* 8.6* HCT 28.4* 27.6* 28.8* Recent Labs Component Name 09/11/17 0437 09/09/17 0422 09/07/17 0428 INR 1.1 1.3 1.6 I have participated in the decision making and have reviewed the assessment and plan. I concur withrecommendations made by Dr. Wilson. Impression: 1. Feeding difficulties in adult with need for intermediate nutrition. 2. Daily ASA 3. On ceftaroline which should be adequate coverage for surgical prophylaxis. Will double check to see if still needs cefazolin in addition. Recommendation: 1. Agree with plan for PEG 2. Hold lovenox (I have discontinued) in anticipation of procedure in am. Can likely start post procedure. 3. Patient agreeable. Elizabeth Lee MD * Segundo Tafoya RN - 09/14/2017 10:10 AM CDTAssociated Order(s): IP CONSULT TO WOUND NURSE Received a consult from nursing to see patient for a low Rex score. Past Medical History: Diagnosis Date ??? Actinic [...] Psoriasis ??? Seizures ??? Squamous cell carcinoma Patient was seen in the ICU this morning and he continues to be free of pressure injuries. Patient has maximum pressure injury prevention measures in place - he is on a total care sport bed, is turned from side to side with TAP, heels are off loaded with heel boots and he has a Mepilex sacral for prevention. Plan of care reviewed with nurse, Alexia. Re consult with any new needs. * Cleo Goodwin MD - 09/12/2017 4:05 PM CDTAssociated Order(s): IP CONSULT TO OTOLARYNGOLOGY Otolaryngology/Head and Neck Surgery Consults Resident Note 09/12/2017 Admit Date: 09/06/2017 4:08 PM Hospital day: LOS: 6 days Reason for consult: trach placement Subjective: José Miguel Keys is a 66yo M admitted to the ICU for acute hypoxic respiratory failure on 09/06. Has beenintermittently extubated but has been re-intubated multiple times 2/2 significant mucous plugging requiring bronch. Currently being treated with ceftaroline and flagyl for MRSA discitis. He had a left sided pleural drain placed in left fluid effusion with alteplase administered through the catheterto assist with resolution of loculations. Plan was for bedside perc trach today, but there was concern for a high-riding innominate on bedside ultrasound and the procedure was aborted. ENT was consulted for trach placement. Past Medical History: Diagnosis Date ??? Actinic [...] REPLACEMENT right hip 2005, left hip 2008 MEDICATIONS FOR CURRENT ENCOUNTER: ?? SCHEDULED MEDICATIONS: ?? Or ?? albuterol (PROVENTIL;VENTOLIN) (5 MG/ML) 0.5% nebulizer solution 2.5 mg, Inhalation, q4h ?? amiodarone (CORDARONE) tablet 200 mg, Oral, BID ?? aspirin (ASPIRIN) chew tablet 81 mg, Oral, QDAY ?? atorvastatin (LIPITOR) tablet 20 mg, Oral, QDAY ?? ceftaroline (TEFLARO) 600 mg in 0.9% NaCl 70 mL IVPB, Intravenous, q12h ?? chlorhexidine (PERIDEX) 0.12 % oral solution, Mouth/Throat, BID ?? docusate sodium (COLACE) solution 100 mg, Enteral Tube, QDAY ?? enoxaparin (LOVENOX) injection 40 mg, Subcutaneous, QDAY ?? famotidine (PEPCID) injection 20 mg, Intravenous, BID ?? famotidine (PEPCID) tablet 20 mg, Oral, BID ?? furosemide (LASIX) injection 20 mg, Intravenous, BID ?? insulin regular human (humuLIN R; novoLIN R) 100 UNIT/ML injection 0-6 Units, Subcutaneous, q6h ?? lidocaine (LIDODERM) 5 % patch 1 patch, Transdermal, QDAY ?? metroNIDAZOLE (FLAGYL) tablet 500 mg, Enteral Tube, q8h ?? senna (SENOKOT) tablet 8.6 mg, Enteral Tube, BID ?? CONTINUOUS MEDICATIONS: ?? fentaNYL infusion, Intravenous, Continuous ?? PRN MEDICATIONS: ?? 0.9% NaCl injection 10 mL, Intracatheter, PRN ?? dextrose IV 12.5-25 g, Intravenous, PRN ?? fentaNYL (SUBLIMAZE) bolus from infusion bag 50 mcg, Intravenous, BOLUS FROM BAG PRN ?? glucagon (GLUCAGEN) injection 1 mg, Intramuscular, PRN ?? glucose (Diabetic Use) oral gel 15-30 g, Oral, PRN ?? oxyCODONE (immediate release) (ROXICODONE) tablet 5 mg, Oral, q4h PRN ?? polyethylene glycol 3350 (MIRALAX) packet 17 g, Enteral Tube, QDAY PRN Allergies Allergen Reactions ??? Penicillins Skin Reactions and Swelling Objective: Temp Min: 96.3 ??F (35.7 ??C) Max: 99.1 ??F (37.3 ??C), Pulse Min: 73 Max: 120, Resp Min: 9 Max: 39, BP Min: 52/38 Max: 146/93 I/O last 3 completed shifts: In: 4030 [I.V.:95] Out: 3940 [Urine:3810; Drains:130] Physical Examination Constitutional: Not in distress, intubated, sedated but answers yes/no questions appropriately CV: RRR Respiration: ETT in place, on VC: RR 16 bpm, TV 500, PEEP 8, PS 14 Neck: Trachea midline, low larynx Extremities: Moving all extremities spontaneously Labs (Last 72 hours): Recent Labs Component Name 09/12/17 0514 WBC 9.5 RBC 2.99* HGB 8.6* HCT 28.8* PLT 185 Recent Labs Component Name 09/12/17 1333 09/12/17 0514 09/06/17 1621 GLU 99 96 - - NA - 139 - - K - - - 4.2 CL - 98 - - CO2 - 28 - - BUN - 35* - - CREATININE - 0.7 - - CALCIUM - 8.6 - - - = values in this interval not displayed. Assessment: José Miguel Keys is a 66 y.o. male with acute hypoxic respiratory failure. ENT consulted for trach placement Plan: - to OR this week for trach, will add on tomorrow if able - NPO at midnight for possible OR tomorrow, hold anticoagulation - will alert primary team of any further plans if OR confirmed - page ENT with questions/concerns Cleo Goodwin MD Anesthesiology PGY-1 09/12/2017 5:08 PM Associated attestation - Moise Castaneda MD - 09/16/2017 11:26 PM CDT I saw and examined the patient with/after Dr. Goodwin on 09/12/2017. I have reviewed the history, physical, and imaging (when appropriate), and I confirm the history, exam, assessment and plan. Please see the above note for further details. In addition, I note: Additional history: no changes Exam addenda: low thyroid cartilage. Cricoid is nearly below notch. W/ extension, improved but still narrow. I reviewed CT and I do not think his innominate is in field for an open tracheostomy. Assessment/Plan: discussed with his --and also spoke with patient, who nodded in response to mydiscussion--about placement of open trach. Plan for OR soon Duke Castaneda MD * Vibha Benites MD - 09/07/2017 3:30 PM CDT Consults Signed by Vibha Benites MD on 09/07/2017 4:42 PM Author: Vibha Benites MD Service: Thoracic Surgery Author Type: Resident Date of Service: 09/07/2017 3:30 PM Filed: 09/07/2017 4:42 PM Note Type: Consults Status: Attested Glaze Supervisor: Vibha Benites MD (Resident) Cosigner: Elisabet Jones MD at 09/08/2017 9:03 AM Attestation signed by Elisabet Jones MD at 09/08/2017 9:03 AM Attending Note I have seen and examined the patient with the housestaff 09/08/17 and agree with their history and exam as above; we have discussed the case and have agreed on the management as outlined in the assessment and plan. In addition I note: Interval history: 66 y.o. male who presents with respiratory failure after recent hospitalization for the same. He was also intubated again and underwent bronchoscopy again for mucus plugging. A leftpleural effusion was again seen on CT and consultation requested to assist in managing the effusion. Exam: Gen - Chronically ill-appearing, dyspneic. Weak cough Lungs - Coarse BS CV - RRR Abdomen - Soft, nontender, nondistended Extremities - Warm, well perfused, no edema Imaging: Increasing left lung consolidation. Assessment/Plan: 66 y.o. male with recurrent respiratory failure. He is weak and deconditioned withchronic pain and a weak cough and has been unable to clear secretions. I believe the pleural effusion to be secondary to volume loss caused by his poor pulmonary toilet. The effusion can be drained percutaneously for symptomatic relief, but consideration needs to be given to tracheostomy given his difficulty clearing secretions. Elisabet Jones MD 09/08/2017 8:56 AM Thoracic Surgery Consult Note Encounter Date: 09/07/2017 Patient Identification Patient's Primary Care Physician: Mau Medeiros Name: José Miguel Keys Age: 66 y.o. Sex: male Chief Complaint Respiratory failure History of Present Illness: José Miguel Keys is a 66 y.o. male admitted 07/14/2017 with MRSA bacteriemia and L1 L2 epidural abscess. He was recently in the ICU for MRSA positive right pleural cultures, the fluid was not exudative at that time. He previously had a left chest tube, R pigtail in place from prior effusions. He presented from [facility] with respiratory failure, required intubation. CXR at that time showed opacified leftthorax. A bronchoscopy was performed with partial resolution consistent with mucus plug. He currently is under less distress, extubated on ventimask 40%. Previous recommendations included thoracentesis, pigtail placement by IR or MICU with cultures/studies. These studies have not shown an exudate or infectious process to this point. ?? Past Medical History: Past Medical History: Diagnosis Date ??? PAYTON (acute kidney injury) ??? Asthma ??? Atrial fibrillation ??? CAD (coronary artery disease) [place] 1981, last angiogram 2010 ??? Chronic atrial fibrillation 02/22/2017 ??? COPD (chronic obstructive pulmonary disease) ??? Diabetes mellitus ??? Diabetes mellitus type 2 in obese ??? Discitis of lumbar region ??? DVT (deep venous thrombosis) 2008 ??? Dyslipidemia ??? Heart attack ??? Hypertension ??? Obstructive sleep apnea ??? Occlusive thrombus ??? [place] (obstructive sleep apnea) 2013 on CPAP ??? Other cirrhosis of liver ??? Other eczema 02/25/2017 ??? Peripheral neuropathy ??? Ulcerative colitis Past Surgical History: Past Surgical History: Procedure Laterality Date ??? HX JOINT REPLACEMENT ??? HX JOINT REPLACEMENT right hip 2005, left hip 2008 Current Medications: Current Facility-Administered Medications Medication Dose Route Frequency Provider Last Rate Last Dose ??? oxyCODONE (ROXICODONE) immediate release tablet 5 mg 5 mg Oral Q4H PRN Vita Troncoso MD 5 mg at 09/07/17 1144 ??? fentaNYL (SUBLIMAZE) injection 25 mcg 25 mcg Intravenous Q1H PRN Veronica Costello MD 25 mcg at 09/07/17 1418 ??? albuterol (PROVENTIL,VENTOLIN) nebulizer solution 2.5 mg 2.5 mg Inhalation Q4H Vita Troncoso MD 2.5 mg at 09/07/17 1217 ??? aspirin chewable tablet 81 mg 81 mg Feeding Tube Daily Vita Troncoso MD 81 mg at 09/07/17 0840 ??? atorvastatin (LIPITOR) tablet 20 mg 20 mg Feeding Tube QAM Vita Troncoso MD 20 mg at 09/07/17 0840 ??? metroNIDAZOLE (FLAGYL) tablet 500 mg 500 mg Feeding Tube TID Vita Troncoso MD 500 mg at 09/07/17 1418 ??? ceftaroline (TEFLARO) 600 mg in NaCl 0.9 % 70 mL IVPB 600 mg Intravenous Q12H Vita Troncoso MD 140 mL/hr at 09/07/17 0520 600 mg at 09/07/17 0520 ??? sodium chloride 0.9 % flush syringe 10 mL 10 mL Intravenous FLUSH Vita Troncoso MD 10 mL at 09/07/17 0851 And ??? sodium chloride 0.9 % flush syringe 10 mL 10 mL Intravenous FLUSH NAHID Troncoso MD ??? chlorhexidine (PERIDEX) 0.12 % liquid 15 mL 15 mL Mouth/Throat BID Vita Troncoso MD 15 mL at 09/07/17 0839 ??? famotidine (PEPCID) injection 20 mg 20 mg Intravenous BID Vita Troncoso MD 20 mg at 09/06/17 2104 Or ??? famotidine (PEPCID) tablet 20 mg 20 mg Oral/FT BID Vita Troncoso MD 20 mg at 09/07/17 0840 ??? glucose 40% oral gel 15 g 15 g Oral PRN Vita Troncoso MD ??? glucose 40% oral gel 30 g 30 g Oral PRN Vita Troncoso MD ??? dextrose 50 % injection 25 mL 25 mL Intravenous NAHID Troncoso MD ??? dextrose 50 % injection 50 mL 50 mL Intravenous NAHID Troncoso MD ??? glucagon (rDNA) (GLUCAGEN) injection 1 mg 1 mg Intramuscular PRN Vita Troncoso MD ??? insulin regular (HUMULIN,NOVOLIN) injection 0-6 Units 0-6 Units Subcutaneous Q6HR Vita Troncoso MD 1 Units at 09/07/17 0535 ??? amiodarone (PACERONE) tablet 200 mg 200 mg Feeding Tube BID Rebecca Melendez, WIRE WRAPPER MACHINE OPERATOR 200 mg at 09/07/17 0840 Allergies: Allergies Allergen Reactions ??? Penicillins Hives and Swelling Family History: Family History Problem Relation Age of Onset ??? CVA Neg Hx ??? Cancer - Breast Neg Hx ??? Cancer - Other Neg Hx ??? Cancer - Skin, Non-Melanoma Neg Hx ??? Cancer - Skin,Melanoma Neg Hx ??? Cirrhosis Father ??? Coronary Artery Disease Mother age 65 ??? Eczema Neg Hx ??? Hemophilia Neg Hx ??? Psoriasis Neg Hx Social History: Social History Social History ??? Marital status: Spouse name: N/A ??? Number of children: N/A ??? Years of education: N/A Occupational History ??? Not on file. Social History Main Topics ??? Smoking status: Former Smoker Quit date: 1981 ??? Smokeless tobacco: Never Used ??? Alcohol use No ??? Drug use: No ??? Sexual activity: Not on file Other Topics Concern ??? Not on file Social History Narrative Merged History Encounter [place] war Review of Systems [facility] 07/08 resp status Physical Examination: Patient Vitals for the past 24 hrs (Last 1 readings): BP Temp Temp src Pulse Resp SpO2 Weight 09/07/17 1524 106/73 - - 93 14 100 % - 09/07/17 1500 115/73 - - 94 15 100 % - 09/07/17 1400 118/82 - - - 23 100 % - 09/07/17 1300 110/72 - - 107 14 98 % - 09/07/17 1217 - - - 96 27 - - 09/07/17 1200 114/79 - - 100 23 100 % - 09/07/17 1100 111/82 - - 106 25 99 % - 09/07/17 1000 112/74 - - 99 25 100 % - 09/07/17 0900 105/70 - - 103 25 99 % - 09/07/17 0857 - - - 98 21 - - 09/07/17 0800 (!) 122/95 - - 107 24 100 % - 09/07/17 0700 105/68 - - 111 19 100 % - 09/07/17 0600 106/66 - - 97 20 100 % - 09/07/17 0516 - - - 112 23 - - 09/07/17 0501 - - - - - - 214 lb 8.1 oz (97.3 kg) 09/07/17 0500 109/74 - - - 19 - - 09/07/17 0400 106/74 98.5 ??F (36.9 ??C) Oral 100 20 100 % - I/O last 3 completed shifts: In: 912.3 [I.V.:101.3; NG/GT:195; IV Piggyback:616] Out: 450 [Urine:450] GEN: Resting HEENT: NC/AT Resp: Coarse bl at bases, rales at base CV: RRR, no m/r/g Abd: Soft, NT/ND Ext: no cyanosis, clubbing, or edema Lab: CBC: Recent Labs 09/07/17 0428 09/06/17 1157 WBC 10.1 27.8 H HGB 7.4 L 8.2 L HCT 25.1 L 28.5 L PLT 313 432 H Electrolytes: Recent Labs 09/07/17 0428 09/06/17 1621 09/06/17 1211 09/06/17 1157 NA 140 143 K 4.6 H 4.2 3.8 3.8 CL 106 108 H CO2 25 20 L BUN 24 21 CREATININE 0.7 0.7 GLU 156 H 170 H CALCIUM 8.4 8.5 Coags: Recent Labs 09/07/17 0428 09/06/17 1157 INR 1.6 2.2 PTT 32.8 46.4 H Imaging: CT Chest: 1. Grossly unchanged small to moderate left [...] Changes of discitis osteomyelitis at T6-7, unchanged. ?? Assessment: José Miguel Keys is a 66 y.o. male with hx of osteomyelitis, MRSA bacteremia with recurrent pleural effusions (transudative) and mucus plugging resulting in respiratory failure. Respiratory mechanics, vitals and leukocytosis all improved with bronchoscopy, pulmonary toilet. Plan: Agree with aggressive pulmonary toilet Agree with antibiotics for pneumonia MICU can consider repeat thoracentesis with pleural studies vs pigtail to drain collection May need to discuss with family and patient tracheostomy for better pulmonary toilet No acute thoracic interventions at this time Vibha Benites MD Thoracic Surgery 09/07/2017 3:30 PM documented in this encounter OR Notes * Operative - Castaneda, Moise Joseph MD - 09/13/2017 6:43 PM CDT José Miguel Keys 1950 [id number] Date of Procedure: 09/13/2017 Pre-Op Diagnosis: Ventilator dependency; Prolonged endotracheal intubation Post-Op Diagnosis: Same Procedure: Tracheostomy w/ skin fenestration, CPT code 80953 Surgeon: Duke Castaneda MD Resident: Leslye Wood MD Anesthesia: General endotracheal Findings: 8.0 cuffed Shiley placed with Vinay flap Indications for procedure: José Miguel is a 66 y.o. male with a history of hypoxia with multiple intubations recently as well as mucous plugging requiring alteplase. He is currently in the ICU being treated for MRSA discitis. Presents to the OR today for tracheostomy placement. Risks, benefits, indications and alternatives were discussed with his next of kin and informed consent was obtained. Details of Procedure: After appropriate informed consent was obtained, the patient was taken to the operating room intubated and sedated from the ICU and placed in a supine position on the table. The patient was connectedto appropriate cardiopulmonary monitors. A full and agreed upon time out was completed. The patient's laryngotracheal landmarks were identified by palpation of the anterior neck. A marking pen was used to design a horizontal tracheotomy incision just inferior to palpable cricoid cartilage. The skin in this area was infiltrated with 1% Lidocaine mixed with 1:100,000 parts epinephrine. The neck was prepped with Betadine and draped appropriately. A skin incision was made with a scalpel and carried down into the superficial fibrofatty tissue. The strap muscles were identified. The straps were on the midline. The thyroid isthmus was identified. Sectioning of the isthmus was necessary and performed with bovie. The anterior surface ofthe trachea was exposed. Soft tissue attachments to the tracheal surface were stripped away using peanut dissectors and bipolar. Complete hemostasis was accomplished. The cricoid cartilage was identified. A suitable location for the tracheotomy was selected between fused first and second rings and third ring. Our anesthesia provider advanced the endotracheal tube and a horizontal incision was made in the trachea. Curved Mckinney scissors were used to create a Vinay flay. A 3-0 vicryl suture was used to secure Vinay flat to inferior skin stoma. The tracheostomy tube was tested for defects and nonewere found. The tile sprayer withdrew the endotracheal tube under direct visualization and a 8.0 cuffed Shiley was placed in the tracheostomy with obturator. Placement within the trachea was confirmed. The cuff was inflated. The tube was connected to the ventilator and proper gas exchange assured. The flange of the tube was secured with 4 corner sutures of 2.0 silk. The neck was cleaned. The Velcro tracheostomy tube collar was secured around the neck. The patient was returned to the ICU having tolerated the procedure without difficulty. Dr. Castaneda waspresent for the entirety of this case. Estimated Blood Loss: Minimal Complications: None Condition: Stable Disposition: ICU Leslye Wood MD documented in this encounter ED Notes * Bandar Mansfield MD - 09/06/2017 11:26 AM CDT ED Provider Notes Signed by Bandar Mansfield MD on 09/06/2017 5:20 PM Author: Bandar Mansfield MD Service: Emergency Author Type: Physician Date of Service: 09/06/2017 11:26 AM Filed: 09/06/2017 5:20 PM Note Type: ED Provider Notes Status: Signed Glaze Supervisor: Bandar Mansfield MD (Physician) [facility] eMERGENCY dEPARTMENT eNCOUnter ATTENDING PHYSICIAN NOTE HISTORICAL INFORMATION Primary Care Doctor: Mau Medeiros Patient information was obtained primarily from the patient, nursing notes, records History/Exam limitations: clinical condition. Time of evaluation: 11:21AM CHIEF COMPLAINT Shortness of Breath HPI José Miguel Keys is a 66 y.o. male with a past medical history of DM, asthma, A- fib, HTN, COPD, and IA who arrived to the ED via EMS at 11:21AM for severe repiratory distress. Patient was placed on CPAP per EMS en route, satting at 75%. HPI limited and obtained per EMS 2/2 acuity of medical condition. PAST MEDICAL HISTORY Past Medical History: Diagnosis Date ??? PAYTON (acute kidney injury) ??? Asthma ??? Atrial fibrillation ??? CAD (coronary artery disease) IA 1981, last angiogram 2010 ??? Chronic atrial fibrillation 02/22/2017 ??? COPD (chronic obstructive pulmonary disease) ??? Diabetes mellitus ??? Diabetes mellitus type 2 in obese ??? Discitis of lumbar region ??? DVT (deep venous thrombosis) 2008 ??? Dyslipidemia ??? Heart attack ??? Hypertension ??? Obstructive sleep apnea ??? Occlusive thrombus ??? [place] (obstructive sleep apnea) 2013 on CPAP ??? Other cirrhosis of liver ??? Other eczema 02/25/2017 ??? Peripheral neuropathy ??? Ulcerative colitis SURGICAL HISTORY Past Surgical History: Procedure Laterality Date ??? HX JOINT REPLACEMENT ??? HX JOINT REPLACEMENT right hip 2005, left hip 2008 CURRENT MEDICATIONS No outpatient prescriptions have been marked as taking for the 09/06/17 encounter (Hospital Encounter) with Jason Nash MD. ALLERGIES Allergies Allergen Reactions ??? Penicillins Hives and Swelling FAMILY HISTORY Family History Problem Relation Age of Onset ??? CVA Neg Hx ??? Cancer - Breast Neg Hx ??? Cancer - Other Neg Hx ??? Cancer - Skin, Non-Melanoma Neg Hx ??? Cancer - Skin,Melanoma Neg Hx ??? Cirrhosis Father ??? Coronary Artery Disease Mother age 65 ??? Eczema Neg Hx ??? Hemophilia Neg Hx ??? Psoriasis Neg Hx SOCIAL HISTORY Social History Social History ??? Marital status: Spouse name: N/A ??? Number of children: N/A ??? Years of education: N/A Social History Main Topics ??? Smoking status: Former Smoker Quit date: 1981 ??? Smokeless tobacco: Never Used ??? Alcohol use No ??? Drug use: No ??? Sexual activity: Not Asked Other Topics Concern ??? None Social History Narrative Merged History Encounter [place] war REVIEW OF SYSTEMS Unable to obtain 2/2 acuity of medical condition. PHYSICAL EXAM VITAL SIGNS: BP 105/72 Pulse 86 Temp 98.2 ??F (36.8 ??C) Resp 16 Ht 5' 10 (1.778 m) Wt 220 lb (99.8 kg) SpO2 100% BMI 31.57 kg/m2 Constitutional: Well developed, Well nourished, Critically ill appearing. HENT: Normocephalic, Atraumatic, Bilateral external ears normal, Oropharynx very dry, No oral exudates, Nose normal. Eyes: PERRL, EOMI, Conjunctiva normal, No discharge. Neck- Normal range of motion,Supple, No stridor. Respiratory: Coarse and very diminished on the left, diminished but better aeration on the right, notable respiratory distress and accessory muscle use on bipap. Cardiovascular: Normal heart rate, Normal rhythm GI: Bowel sounds normal, Soft, No masses, No pulsatile masses. Musculoskeletal: Intact distal pulses, 1+ edema, No cyanosis, No clubbing. Back wound not evaluated. Integument: Warm, Dry Lymphatic: No lymphadenopathy noted. Neurologic: Awakens to loud voice and tries to say his name and move his extremities to commands, depressed mental status with severe respiratory distress. Psychiatric: Unable to assess Pulse Oximetry Interpretation Saturation: 99% Oxygen Delivery: intubated Interpretation: hypoxic Rhythm Strip Interpretation (interpreted by ED provider) Rhythm: sinus Ventricular Rate: 80 bpm EKG (interpreted by ED provider) Date: 09/06/2017 Time: 11:43AM R&R: A-fib vs sinus tach with a ventricular rate of 104 bpm. Additional Findings: significant baseline artifact, QT/QTc: 376/494 RADIOLOGY I have independently reviewed all imaging for today's visit. Ct Guided Thoracentesis Result Date: 09/06/2017 History: right pleural effusion, IR consulted for tube placement, concern for empyema Operators: 1.Dr. Ramos, Attending Physician Anesthesia: Local anesthesia - 10 ml of 1 % lidocaine. Procedure: 1.Limited non-contrast CT examination of chest. 2. CT [...] the known small pleural effusion on the right side. An appropriate access site was marked on the skin in the chest. The marked site and skin around the region was prepped and draped in a sterile fashion. Local anesthesia was provided by the injection with 1% Lidocaine. A 19-gauge coaxial needle was advanced into the pleuralcavity. [...] and sterile dressing was applied. The patient was transferred to the holding area in stable c ondition. There were no complications and the patient tolerated the procedure well.? Impression: CT guided thoracentesis on the right, of appx 300 ml of clear straw colored fluid, as described above. I Dr. Ramos performed/was present throughout the procedure. This report was electronically signed by VANDANA SANTIAGO M.D. on 09/06/2017 7:52 AM . PX Chest 1 Vw (Final result) Result time: 09/06/17 16:13:00 ?? Final result by Silas Nguyễn MD (09/06/17 16:13:00) ?? Impression: ?? IMPRESSION: Right internal jugular approach central venous catheters superimposes the superior vena cava. Endotracheal tube terminates at the mid thoracic trachea. A gastric tube and a feeding tube follows the course of the esophagus and tips are off the [id number]. There is a moderate left pleural effusion, intervally decreased. There is a small right pleural effusion, unchanged. There are bilateral interstitial and airspace opacities likely representing pulmonary edema or pneumonia. No pneumothorax is identified. The cardiac silhouette is partly obscured. Report dictated by Rohan Hopkins M.D. (president). I, Dr. SILAS NGUYỄN MD have personally reviewed and interpreted this examination/study. This report was electronically signed by SILAS NGUYỄN MD ??on 09/06/2017 4:13 PM . ?? Narrative: ?? EXAMINATION: PX CHEST 1 VW HISTORY: s/p bronch COMPARISON: Same-day chest radiograph at 7:46 AM FINDINGS/ PROGRESS NOTES 11:22AM- Patient is satting at 59%, preparing to intubate. 11:27AM- I intubated patient. 11:47AM-Patient's at bedside, updated her on patient's condition and plan of care. Obtained consent for central line and A-line. 12:00PM- After discussion with MICU, the patient will be admitted to their service for further management of care. -I have reviewed the diagnostic findings with the patient and they have had an opportunity to ask me any questions they have about care, diagnosis, and reason for admission. The patient states understanding and agrees to admission. 12:34PM-I placed central line placed in right IJ. PROCEDURES Intubation Procedure Note Indication: resp failure Consent: implied Medications Used: see RN notes. Etomidate, rocuronium Procedure: The patient was placed in the appropriate position. Cricoid pressure was not required. Intubation was performed by direct laryngoscopy using glidescope 4 and 8.0 cuffed endotracheal tube. The cuff was then inflated and the tube was secured appropriately at a distance of 24 cm to the dental ridge. Initial confirmation of placement included color change capnography and bilateral breat sounds. A chest x-ray to verify correct placement of the tube was reviewed. Performing provider: Opal Mansfield MD The patient tolerated the procedure well. Complications: None Gastric Tube Placement Procedure Note Indication: gastric decompression Procedure: The patient was placed in the appropriate position and an 18 Gambian nasogastric tube waslubricated with water soluble lubricant and passed through the oropharynx into the stomach. Placement was confirmed by injection of air and auscultation. The patient tolerated the procedure well. Performing provider: Opal Mansfield MD Complications: None Central Line Placement Procedure Note Indication: hypotension Consent: Implied Procedure: The patient was positioned appropriately and the skin over the right internal jugular vein was prepped with Chloraprep and draped in sterile fashion unless noted elsewhere that the procedure was emergent. Local anesthesia was obtained by infiltration using 1% Lidocaine without epinephrine. A large bore needle was used to identify the vein. A guide wire was then inserted into the vein through the needle. 7Fr 16 cm catheter was then inserted into the vessel over the guide wire using the Seldinger technique under dynamic ultrasound guidance. All ports showed good, free flowing blood return and were flushed with saline solution. The catheter was then securely fastened to the skin with sutures and with an adhesive dressing and covered with a sterile dressing. A post procedure X-ray was reviewed. The patient tolerated the procedure well. Complications: None Performing provider: Opal Mansfield MD Limited Vascular Ultrasound Procedure Note Performed by: Bandar Mansfield M.D. Reason: Central Line Placement/Vascular anomaly evaluation/Vascular patency verification Findings: Placement of triple-lumen in the right internal jugular vein under ultrasound guidance Differential diagnosis: Differential diagnosis includes: Respiratory Failure, Pulmonary Embolus, ACS, COPD, CHF, Pneumonia, Pneumothorax, Metabolic Disorder, Anxiety ED COURSE & MEDICAL DECISION MAKING Pertinent Labs & Imaging studies reviewed. (See chart for details) Results for orders placed or performed during the hospital encounter of 09/06/17 Comprehensive Metabolic Panel (w/eGFR) Result Value Ref Range BUN 21 7 - 26 mg/dL Creatinine 0.7 0.6 - 1.2 mg/dL Sodium 143 136 - 145 mmol/L Potassium 3.8 3.5 - 4.5 mmol/L Chloride 108 (H) 98 - 107 mmol/L Carbon Dioxide 20 (L) 22 - 29 mmol/L Glucose 170 (H) 70 - 115 mg/dL Calcium 8.5 8.4 - 10.2 mg/dL Total Protein 6.2 6.0 - 8.3 g/dL Albumin 1.8 (L) 3.4 - 5.0 g/dL Total Bilirubin 0.3 0.2 - 1.2 mg/dL Alkaline Phosphatase 204 (H) 40 - 150 Units/L ALT 10 0 - 55 Units/L AST 21 5 - 34 Units/L Anion Gap 19 (H) 8 - 18 BUN/Creatinine Ratio 30 (H) 7 - 23 Calculated Osmolality 303 (H) 270 - 300 mOsm/kg A/G Ratio 0.4 (L) 1.1 - 2.3 Est. Glomerular Filtration Rate >60 >60 mL/min/1.73 m2 Prothrombin Time (PT/INR) Result Value Ref Range PT Patient Seconds 24.5 (H) 12.1 - 14.8 Seconds PT INR 2.2 See Comment aPTT (Activated PTT) Result Value Ref Range APTT Seconds 46.4 (H) 23.0 - 38.4 Seconds Troponin I Result Value Ref Range Troponin-I 0.027 <0.032 ng/mL Lactic Acid, Plasma Result Value Ref Range Lactic Acid 3.3 (HH) 0.5 - 2.0 mmol/L Arterial Blood Gas Panel with Whole Blood Lytes Result Value Ref Range pH, Arterial 7.28 (L) 7.35 - 7.45 pCO2 Arterial 55 (H) 35 - 45 mmHg pO2 Arterial 152 (H) 71 - 95 mmHg HCO3 Arterial 25.0 22.0 - 26.0 mmol/L TCO2 Arterial 26.7 25.0 - 29.0 mmol/L Base Excess Arterial -2.0 -2.0 - 2.0 mmol/L Hgb Arterial 8.6 (L) 13.5 - 17.5 g/dL Oxyhemoglobin Arterial 97.6 95.0 - 100.0 % Carboxyhemoglobin 0.3 0.0 - 3.0 % Methemoglobin 0.6 0.0 - 2.0 % FIO2 Arterial 100.0 % Whole Blood Ionized Calcium 1.18 mmol/L Adjusted Whole Blood Ionized Calcium 1.12 (L) 1.19 - 1.34 mmol/L Sodium, Whole Blood 142 135 - 145 mmol/L Potassium, Whole Blood 3.8 3.5 - 5.5 mmol/L Chloride, Whole Blood 106 101 - 111 mmol/L Glucose, Whole Blood 166 (H) 70 - 110 mg/dL Lactic Acid, Whole Blood 2.8 (HH) 0.5 - 2.0 mmol/L Digoxin Result Value Ref Range Digoxin <0.3 (L) 0.8 - 2.0 ng/mL Arterial Blood Gas Panel with Whole Blood Lytes Result Value Ref Range pH, Arterial 7.38 7.35 - 7.45 pCO2 Arterial 47 (H) 35 - 45 mmHg pO2 Arterial 169 (H) 71 - 95 mmHg HCO3 Arterial 27.0 (H) 22.0 - 26.0 mmol/L TCO2 Arterial 28.4 25.0 - 29.0 mmol/L Base Excess Arterial 1.5 -2.0 - 2.0 mmol/L Hgb Arterial 8.6 (L) 13.5 - 17.5 g/dL Oxyhemoglobin Arterial 97.9 95.0 - 100.0 % Carboxyhemoglobin 0.3 0.0 - 3.0 % Methemoglobin 0.3 0.0 - 2.0 % FIO2 Arterial 50.0 % Whole Blood Ionized Calcium 1.14 mmol/L Adjusted Whole Blood Ionized Calcium 1.13 (L) 1.19 - 1.34 mmol/L Sodium, Whole Blood 140 135 - 145 mmol/L Potassium, Whole Blood 4.2 3.5 - 5.5 mmol/L Chloride, Whole Blood 109 101 - 111 mmol/L Glucose, Whole Blood 134 (H) 70 - 110 mg/dL Lactic Acid, Whole Blood 2.5 0.5 - 3.4 mmol/L Accucheck glucose Result Value Ref Range Glucose, Fingerstick 128 (H) 70-115mg/dL mg/dL EKG 12 lead Result Value Ref Range EKG Exam Date/Time: Sep 06 2017 11:43:27 Test Reason : dyspnea Blood Pressure : / mmHGVent. Rate : 104 BPM Atrial Rate : 096 BPM P-R Int : 000 ms QRS Dur : 092 ms QT Int : 376 ms P-R-T Axes : 000 014 176 degrees QTc Int : 494 ms Atrial fibrillation with rapid ventricular response Low voltage QRS Possible Anterolateral infarct (cited on or before 12-AUG-2017) Abnormal ECG When compared with ECG of 27-AUG-2017 05:00, Questionable change in initial forces of Lateral leads T wave inversion more evident in Anterolateral leads Referred By: REFERRING NO Confirmed By: CBC WITH DIFFERENTIAL Result Value Ref Range WBC 27.8 (H) 3.5 - 10.5 10??3/uL RBC 2.99 (L) 4.30 - 5.70 10??6/uL Hemoglobin 8.2 (L) 13.5 - 17.5 g/dL Hematocrit 28.5 (L) 39.0 - 50.0 % MCV 95.3 81.0 - 97.0 fL MCH 27.4 (L) 28.0 - 34.0 pg MCHC 28.8 (L) 32.0 - 36.0 g/dL Platelet Count 432 (H) 150 - 400 10??3/uL RDW-SD 64.7 (H) 36.0 - 50.0 fL RDW-CV 19.1 (H) 11.2 - 14.8 % MPV 12.1 9.3 - 12.8 fL NRBC Abs 0.09 (H) 0 10??3/uL NRBC % 0.3 (H) 0 /100 WBC Neutrophil % 92.0 (H) 35.0 - 70.0 % Lymphocytes % 5.2 (L) 19.7 - 55.1 % Monocytes % 2.6 (L) 3.0 - 15.0 % Eosinophils % 0.1 0.0 - 6.0 % Basophil % 0.1 0.0 - 1.5 % Neutrophil Abs 25.6 (H) 1.6 - 7.0 10??3/uL Lymphocytes Abs 1.5 0.8 - 2.9 10??3/uL Monocytes Abs 0.71 (H) 0.14 - 0.66 10??3/uL Eosinophil Abs 0.03 0.00 - 0.22 10??3/uL Basophils ABS 0.04 0.00 - 0.06 10??3/uL Immature Granulocyte % 3.0 (H) 0.0 - 1.0 % CRITICAL ADDENDUM CARE: Indication: resp failure Service Time: 55 minutes Time Type: Intermittent I provided a total of 55 minutes of critical care excluding separately billable procedures. This includes time with EMS, initial bedside evaluation, reviewing old records, review of testing done while under my care, discussion with the family, nurses, multiple consults and guiding the patient???s care while in the emergency department. Approximant time distribution: 15 minutes - Initial evaluation, d/w involved parties, attempting to gather old records 10 minutes - Documenting medical record 10 minutes - Review of results (EKGs, labs, imaging) 10 minutes - Serial repeat bedside evaluation 10 minutes - Discussing case with multiple providers Please see main chart for details. Excludes separately billable procedures. Amount and/or Complexity of Data Reviewed Triage notes and available nursing notes reviewed Clinical lab tests: ordered and reviewed Tests in the radiology section of CPT??: ordered and reviewed Independent visualization of images, tracings, or specimens (including EKGs): yes Decide to obtain previous medical records or to obtain history from someone other than the patient:yes, see HPI Review and summarize past medical records: yes Discuss the patient with other providers: yes FINAL IMPRESSION 1. Acute hypoxemic respiratory failure 2. Pleural effusion, L>R 3. Pneumonia, healthcare associated. 4. Hypotension 5. Hypoxia 6. Elevated lactic acid Disposition: Admit to MICU. By signing my name below, I, Loretta Quiroz, attest that this documentation has been prepared under the direction and in the presence of Dr. Mansfield. Signed: Piyush Pro. Date: 09/06/2017. Time: 5:13 PM. Bandar Mansfield M.D. Emergency Medicine Physician Bandar Mansfield MD 09/06/17 [id number] documented in this encounter Plan of Treatment Upcoming Encounters Date Type Department Care Team (Late st Contact Info) Description 07/09/2024 12:30 PM SECOND WORKER Office Visit [facility] - GI [address] [facility] [place] [address] Twin Miller MD [facility] [facility] [address] [place] [address] 09/19/2024 2:00 PM CDT Office Visit [facility] - Orthopedic Surgery [address] [facility] [place] [id number] Larry Alexander MD [address] [place] [address] Pending Results Name Type Priority Associated Diagnoses Date /Time PT-INR Lab Routine 09/10/2017 5:0 4 AM CDT Scheduled Orders Name Type Priority Associated Diagnoses Orde r Schedule PT-INR Lab Routine EVERY DAY for 1 Occurrences starting 09/10/2017 until 09/10/2017 documented as of this encounter Procedures Procedure Name Priority Date/Time Associated Diagnosis Comments CARDIAC EKG ORDER 03/23/2018 11:38 AM CDT CARDIAC PROCEDURE ORDER 11/23/19 4:17 PM CDT CARDIAC EKG ORDER 10/26/2017 11:18 AM CDT CARDIAC EKG ORDER 10/19/2017 2:34 PM CDT CARDIAC EKG ORDER 09/29/2017 8:30 AM CDT GLUCOSE - POINT OF CARE Routine 09/20/19 2:45 AM CDT RBC MORPHOLOGY AM Draw 09/19/2017 2:43 AM CDT CBC W AUTO DIFFERENTIAL AM Draw 09/20/19 2:43 AM CDT BASIC METABOLIC PANEL (CALCI UM TOTAL) AM Draw 09/19/2017 2:43 AM CDT PHOSPHORUS BLOOD Routine 09/19/2017 2:43 AM CDT MAGNESIUM BLOOD AM Draw 09/19/2017 2:43 AM CDT GLUCOSE - POINT OF CARE Routine 09/19/19 4:50 PM CDT XR CHEST 1VW PORTABLE Routine 09/18/2017 2:45 PM CDT Acute respiratory failure with hypoxia (HCC) GLUCOSE - POINT OF CARE Routine 09/19/19 1:00 PM CDT MAGNESIUM BLOOD Routine 09/18/2017 11:04 AM CDT CBC W AUTO DIFFERENTIAL AM Draw 09/19/19 12:03 AM CDT BASIC METABOLIC PANEL (CALCI UM TOTAL) AM Draw 09/18/2017 12:03 AM CDT PHOSPHORUS BLOOD Routine 09/18/2017 12:03 AM CDT MAGNESIUM BLOOD AM Draw 09/18/2017 12:03 AM CDT GLUCOSE - POINT OF CARE Routine 09/18/19 7:18 PM CDT GLUCOSE - POINT OF CARE Routine 09/18/19 12:04 PM CDT RBC MORPHOLOGY Routine 09/17/2017 4:33 AM CDT CBC W AUTO DIFFERENTIAL AM Draw 09/18/19 4:33 AM CDT BASIC METABOLIC PANEL (CALCI UM TOTAL) AM Draw 09/17/2017 4:33 AM CDT PHOSPHORUS BLOOD Routine 09/17/2017 4:33 AM CDT MAGNESIUM BLOOD AM Draw 09/17/2017 4:33 AM CDT GLUCOSE - POINT OF CARE Routine 09/17/19 11:18 PM CDT GLUCOSE - POINT OF CARE Routine 09/17/19 6:41 PM CDT GLUCOSE - POINT OF CARE Routine 09/17/19 12:22 PM CDT GLUCOSE - POINT OF CARE Routine 09/17/19 5:56 AM CDT RBC MORPHOLOGY Routine 09/16/2017 4:13 AM CDT CBC W AUTO DIFFERENTIAL AM Draw 09/17/19 4:13 AM CDT BASIC METABOLIC PANEL (CALCI UM TOTAL) AM Draw 09/16/2017 4:13 AM CDT PHOSPHORUS BLOOD Routine 09/16/2017 4:13 AM CDT MAGNESIUM BLOOD AM Draw 09/16/2017 4:13 AM CDT GLUCOSE - POINT OF CARE Routine 09/17/19 12:23 AM CDT GLUCOSE - POINT OF CARE Routine 09/16/19 6:01 PM CDT GLUCOSE - POINT OF CARE Routine 09/16/19 11:56 AM CDT ESOPHAGOGASTRODUODENOSCOPY (EGD) DIAGNOSTIC 09/15/2017 9:11 AM CDT Dysphasia EGD Routine 09/15/2017 8:58 AM CDT GLUCOSE - POINT OF CARE Routine 09/16/19 8:05 AM CDT XR CHEST 1VW PORTABLE Routine 09/15/2017 5:22 AM CDT Hypoxemia PT-INR [facility] AM Draw 09/15/2017 4:41 AM CDT TYPE + SCREEN PANEL Routine 09/15/2017 4:41 AM CDT DIFFERENTIAL MANUAL Routine 09/15/2017 4:41 AM CDT CBC W AUTO DIFFERENTIAL AM Draw 09/16/19 18 4:41 AM CDT BASIC METABOLIC PANEL (CALCI UM TOTAL) AM Draw 09/15/2017 4:41 AM CDT B-TYPE NATRIURETIC PEPTIDE AM Draw 09/15 4:41 AM CDT MAGNESIUM BLOOD AM Draw 09/15/2017 4:41 AM CDT GLUCOSE - POINT OF CARE Routine 09/16/19 2:23 AM CDT GLUCOSE - POINT OF CARE Routine 09/15/19 7:45 PM CDT GLUCOSE - POINT OF CARE Routine 09/15/19 6:27 PM CDT GLUCOSE - POINT OF CARE Routine 09/15/19 12:46 PM CDT GLUCOSE - POINT OF CARE Routine 09/15/19 6:34 AM CDT XR CHEST 1VW PORTABLE Routine 09/14/2017 6:19 AM CDT Hypoxemia Pleural effusion, not elsewhere classified Extradural and subdural abscess, unspecified (HCC) DIFFERENTIAL MANUAL Routine 09/14/2017 5:21 AM CDT CBC W AUTO DIFFERENTIAL AM Draw 09/15/19 18 5:21 AM CDT BASIC METABOLIC PANEL (CALCI UM TOTAL) AM Draw 09/14/2017 5:21 AM CDT MAGNESIUM BLOOD AM Draw 09/14/2017 5:21 AM CDT GLUCOSE - POINT OF CARE Routine 09/15/19 18 12:20 AM CDT XR ABDOMEN KUB STAT 09/13/2017 7:16 PM CDT Uses feeding tube GLUCOSE - POINT OF CARE Routine 09/14/19 18 6:45 PM CDT TRACHEOTOMY/TRACHEOSTOMY 018 5:28 PM CDT Chronic respiratory failure with hypoxia (HCC) GLUCOSE - POINT OF CARE Routine 09/14/19 18 11:14 AM CDT GLUCOSE - POINT OF CARE Routine 09/14/19 7:02 AM CDT XR CHEST 1VW PORTABLE Routine 09/13/2017 5:20 AM CDT Hypoxemia Pleural effusion, not elsewhere classified RBC MORPHOLOGY AM Draw 09/13/2017 5:17 AM CDT CBC W AUTO DIFFERENTIAL AM Draw 09/14/19 18 5:17 AM CDT BASIC METABOLIC PANEL (CALCI UM TOTAL) AM Draw 09/13/2017 5:17 AM CDT MAGNESIUM BLOOD AM Draw 09/13/2017 5:17 AM CDT GLUCOSE - POINT OF CARE Routine 09/13/19 11:49 PM CDT GLUCOSE - POINT OF CARE Routine 09/13/19 6:32 PM CDT GLUCOSE - POINT OF CARE Routine 09/13/19 1:33 PM CDT DIFFERENTIAL MANUAL Routine 09/12/2017 5:14 AM CDT CBC W AUTO DIFFERENTIAL AM Draw 09/13/19 5:14 AM CDT BASIC METABOLIC PANEL (CALCI UM TOTAL) AM Draw 09/12/2017 5:14 AM CDT MAGNESIUM BLOOD AM Draw 09/12/2017 5:14 AM CDT GLUCOSE - POINT OF CARE Routine 09/13/19 5:12 AM CDT GLUCOSE - POINT OF CARE Routine 09/13/19 1:14 AM CDT GLUCOSE - POINT OF CARE Routine 09/12/19 5:28 PM CDT GLUCOSE - POINT OF CARE Routine 09/12/19 11:49 AM CDT TYPE + SCREEN PANEL Routine 09/11/2017 6:50 AM CDT XR CHEST 1VW Routine 09/11/2017 6:33 AM CDT Hypoxemia Pleural effusion, not elsewhere classified Severe sepsis without septic shock (CODE) (HCC) GLUCOSE - POINT OF CARE Routine 09/12/19 5:54 AM CDT PT-INR [facility] AM Draw 09/11/2017 4:37 AM CDT RBC MORPHOLOGY AM Draw 09/11/2017 4:37 AM CDT CBC W AUTO DIFFERENTIAL AM Draw 09/12/19 4:37 AM CDT BASIC METABOLIC PANEL (CALCI UM TOTAL) AM Draw 09/11/2017 4:37 AM CDT B-TYPE NATRIURETIC PEPTIDE AM Draw 09/11 4:37 AM CDT MAGNESIUM BLOOD AM Draw 09/11/2017 4:37 AM CDT GLUCOSE - POINT OF CARE Routine 09/12/19 12:01 AM CDT GLUCOSE - POINT OF CARE Routine 09/11/19 6:16 PM CDT GLUCOSE - POINT OF CARE Routine 09/11/19 12:57 PM CDT BLOOD GASES ARTERIAL STAT 09/10/2017 5:57 AM CDT GLUCOSE - POINT OF CARE Routine 09/11/19 5:50 AM CDT PTT [facility] STAT 09/10/2017 5:49 AM CDT RBC MORPHOLOGY Routine 09/10/2017 5:04 AM CDT CBC W AUTO DIFFERENTIAL Routine 09/11/19 5:04 AM CDT BASIC METABOLIC PANEL (CALCI UM TOTAL) Routine 09/10/2017 5:04 AM CDT GLUCOSE ACCUCHECK Routine 09/09/2017 11:31 PM CDT GLUCOSE ACCUCHECK Routine 09/09/2017 5:10 PM CDT CULTURE AEROBIC Routine 09/09/2017 3:41 PM CDT XR CHEST 1VW PORTABLE STAT 09/09/2017 3:31 PM CDT OT EVAL AND TREAT Routine 09/09/2017 2:08 PM CDT PT EVAL AND TREAT Routine 09/09/2017 2:08 PM CDT GLUCOSE ACCUCHECK Routine 09/09/2017 11:57 AM CDT BASIC METABOLIC PANEL (CALCI UM TOTAL) STAT 09/09/2017 10:31 AM CDT BLOOD GASES ARTERIAL STAT 09/09/2017 8:41 AM CDT GLUCOSE ACCUCHECK Routine 09/09/2017 6:15 AM CDT XR CHEST 1VW PORTABLE STAT 09/09/2017 4:23 AM CDT PT-INR [facility] Routine 09/09/2017 4:22 AM CDT DIFFERENTIAL MANUAL Routine 09/09/2017 4:22 AM CDT CBC W AUTO DIFFERENTIAL Routine 09/10/19 18 4:22 AM CDT BASIC METABOLIC PANEL (CALCI UM TOTAL) Routine 09/09/2017 4:22 AM CDT BLOOD GASES ARTERIAL Routine 09/09/2017 4:22 AM CDT CBC W AUTO DIFFERENTIAL Routine 09/10/19 18 4:22 AM CDT XR CHEST 1VW PORTABLE STAT 09/09/2017 3:48 AM CDT GLUCOSE ACCUCHECK Routine 09/09/2017 12:56 AM CDT GLUCOSE ACCUCHECK Routine 09/08/2017 6:08 PM CDT GLUCOSE ACCUCHECK Routine 09/08/2017 12:39 PM CDT LDH BODY FLUID STAT 09/08/2017 12:35 PM CDT GLUCOSE BODY FLUID STAT 09/08/2017 12:35 PM CDT PROTEIN FLUID STAT 09/08/2017 12:35 PM CDT DIFFERENTIAL MANUAL FLUID STAT 2017 12:35 PM CDT CELL COUNT FLUID STAT 09/08/2017 12:35 PM CDT CELL COUNT W DIFFERENTIAL FLUID STAT 09/08/2017 12:35 PM CDT PH FLUID STAT 09/08/2017 12:33 PM CDT CULTURE AEROBIC STAT 09/08/2017 12:32 PM CDT XR CHEST 1VW PORTABLE Routine 09/08/2017 12:23 PM CDT XR CHEST 1VW PORTABLE STAT 09/08/2017 5:52 AM CDT GLUCOSE ACCUCHECK Routine 09/08/2017 5:37 AM CDT GLUCOSE ACCUCHECK Routine 09/08/2017 12:27 AM CDT GLUCOSE ACCUCHECK Routine 09/07/2017 4:[address] CHEST WO CONTRAST MYRNA 09/07/2017 1:52 PM CDT GLUCOSE ACCUCHECK Routine 09/07/2017 11:43 AM CDT GLUCOSE ACCUCHECK Routine 09/07/2017 5:29 AM CDT XR CHEST 1VW PORTABLE Routine 09/07/2017 5:04 AM CDT PTT [facility] Timed 09/07/2017 4:28 AM CDT PT-INR [facility] Timed 09/07/2017 4:28 AM CDT PROCALCITONIN LEVEL Timed 09/07/2017 4:28 AM CDT BASIC METABOLIC PANEL (CALCI UM TOTAL) Timed 09/07/2017 4:28 AM CDT PHOSPHORUS BLOOD Timed 09/07/2017 4:28 AM CDT MAGNESIUM BLOOD Timed 09/07/2017 4:28 AM CDT CBC W AUTO DIFFERENTIAL Timed 09/08/19 18 4:28 AM CDT CBC W AUTO DIFFERENTIAL Timed 09/08/19 18 4:28 AM CDT GLUCOSE ACCUCHECK Routine 09/07/2017 12:08 AM CDT EKG 12-LEAD Routine 09/07/2017 12:00 AM CDT XR ABDOMEN KUB PORTABLE STAT 09/07/19 18 11:06 PM CDT BLOOD GASES ART COMPLETE [facility] OR STAT 09/06/2017 4:21 PM CDT GLUCOSE ACCUCHECK Routine 09/06/2017 4:19 PM CDT XR CHEST 1VW PORTABLE STAT 09/06/2017 2:48 PM CDT CULTURE AEROBIC Routine 09/06/2017 2:05 PM CDT CULTURE LEGIONELLA Routine 09/06/2017 2:05 PM CDT CULTURE BLOOD STAT 09/06/2017 12:35 PM CDT CULTURE BLOOD Timed 09/06/2017 12:11 PM CDT BLOOD GASES ART COMPLETE [facility] OR STAT 09/06/2017 12:11 PM CDT DIGOXIN LEVEL STAT 09/06/2017 12:02 PM CDT PTT [facility] STAT 09/06/2017 11:57 AM CDT PT-INR [facility] STAT 09/06/2017 11:57 AM CDT TROPONIN I STAT 09/06/2017 11:57 AM CDT COMPREHENSIVE METABOLIC PANEL STAT 11:57 AM CDT CBC W AUTO DIFFERENTIAL STAT 09/07/19 18 11:57 AM CDT LACTIC ACID BLOOD STAT 09/06/2017 11:57 AM CDT CBC W AUTO DIFFERENTIAL STAT 09/07/19 18 11:57 AM CDT XR CHEST 1VW PORTABLE STAT 09/06/2017 11:56 AM CDT EKG 12-LEAD Routine 09/06/2017 12:00 AM CDT documented in this encounter Results * CARDIAC EKG ORDER (03/23/2018 11:38 AM CDT) Narrative 03/23/2018 11:38 AM CDT Ordered by an unspecified provider. Scanned Document CARDIAC SERVICES ORD ERABLES * CARDIAC PROCEDURE ORDER (11/22/2017 4:17 PM CDT) Narrative 11/22/2017 4:17 PM CDT Ordered by an unspecified provider. Scanned Document CARDIAC SERVICES ORD ERABLES * CARDIAC EKG ORDER (10/26/2017 11:18 AM CDT) Narrative 10/26/2017 11:18 AM CDT Ordered by an unspecified provider. Scanned Document CARDIAC SERVICES ORD ERABLES * CARDIAC EKG ORDER (10/19/2017 2:34 PM CDT) Narrative 10/19/2017 2:34 PM CDT Ordered by an unspecified provider. Scanned Document CARDIAC SERVICES ORD ERABLES * CARDIAC EKG ORDER (09/29/2017 8:30 AM CDT) Narrative 09/29/2017 8:30 AM CDT Ordered by an unspecified provider. Scanned Document CARDIAC SERVICES ORD ERABLES * (ABNORMAL) GLUCOSE - POINT OF CARE (09/19/2017 2:45 AM CDT) [facility] Glucose WB/POC 181(H) 70 - 115 mg/dL 09/19/2017 2:59 AM CDT [facility] Blood BLOOD SPECIMEN / Unknown 09/19/2017 2:45 AM CDT 09/19/2017 2:59 AM CDT Narrative [facility] - 09/19/2017 2:59 AM CDT Distributor Operator: GONZALEZ ??TANNERINDA Jason Nash MD LAB - POINT OF CARE ORDERABLES Performing Organization Address City/State/[facility] Co de Phone Number [address] [phone] * (ABNORMAL) RBC MORPHOLOGY (09/19/2017 2:43 AM CDT) Platelet Estimate Adequate Adequate 09/19/2017 5:26 AM CDT [facility] Anisocytosis 1+(A) None 09/19/2017 5:26 AM CDT [facility] Microcytes Few(A) None 09/19/2017 5:26 AM CDT [facility] Macrocytosis 1+(A) None 09/19/2017 5:26 AM CDT [facility] Hypochromia 1+(A) None 09/19/2017 5:26 AM CDT [facility] Schistocytes Occasional(A ) None 09/19/2017 5:26 AM CDT [facility] Ovalocytes 1+(A) None 09/19/2017 5:26 AM CDT [facility] Blood BLOOD SPECIMEN / Unknown Venipuncture / Unknown 09/19/2017 2:43 AM CDT 09/19/2017 3:39 AM CDT Rebecca Melendez DATA TYPIST-RFID STRATEGIST LAB - HEMATOLOGY ORDERABLES Performing Organization Address [facility] Co de Phone Number [address] [phone] * MAGNESIUM BLOOD (09/19/2017 2:43 AM CDT) Magnesium 1.7 1.6 - 2.6 mg/dL 09/19/2017 4:19 AM CDT [facility] Blood BLOOD SPECIMEN / Unknown Venipuncture / Unknown 09/19/2017 2:43 AM CDT 09/19/2017 3:39 AM CDT Rebecca Melendez DATA TYPIST-RFID STRATEGIST LAB - CHEMISTRY O RDERABLES Performing Organization Address City/[facility]/ZIP Co de Phone Number [address] [phone] * (ABNORMAL) CBC W AUTO DIFFERENTIAL (09/19/2017 2:43 AM [facility]) WBC 8.5 3.5 - 10.5 10? 3 /uL 09/19/2017 4:25 AM [facility] RBC 2.85(L) 4.30 - 5.70 10? 6 /uL 09/19/2017 4:25 AM [facility] Hemoglobin 8.1(L) 13.5 - 17.5 g/dL 09/19/2017 4:25 AM [facility] Hematocrit 28.0(L) 39.0 - 50.0 % 09/19/2017 4:25 AM [facility] MCV 98.2(H) 81.0 - 97.0 fL 09/19/2017 4:25 AM [facility] MCH 28.4 28.0 - 34.0 pg 09/19/2017 4:25 AM [facility] MCHC 28.9(L) 32.0 - 36.0 g/dL 09/19/2017 4:25 AM [facility] Platelet Count 208 150 - 400 10? 3 /uL 09/19/2017 4:25 AM [facility] RDW-SD 76.4(H) 36.0 - 50.0 fL 09/19/2017 4:25 AM [facility] RDW-CV 21.3(H) 11.2 - 14.8 % 09/19/2017 4:25 AM [facility] MPV 13.4(H) 9.3 - 12.8 fL 09/19/2017 4:25 AM [facility] Neutrophils % 79.2(H) 35.0 - 70.0 % 09/19/2017 4:25 AM [facility] Lymphocytes % 9.5(L) 19.7 - 55.1 % 09/19/2017 4:25 AM [facility] Monocytes % 6.7 3.0 - 15.0 % 09/19/2017 4:25 AM [facility] Eosinophils % 4.4 0.0 - 6.0 % 09/19/2017 4:25 AM [facility] Basophil % 0.2 0.0 - 1.5 % 09/19/2017 4:25 AM [facility] Neutrophils Absolute 6.8 1.6 - 7.0 10? 3 /uL 09/19/2017 4:25 AM [facility] Lymphocyte Absolute 0.8 0.8 - 2.9 10? 3 /uL 09/19/2017 4:25 AM [facility] Monocytes Absolute 0.57 0.14 - 0.66 10? 3 /uL 09/19/2017 4:25 AM [facility] Eosinophils Absolute 0.38(H) 0.00 - 0.22 10? 3 /uL 09/19/2017 4:25 AM [facility] Basophils Absolute 0.02 0.00 - 0.06 10? 3 /uL 09/19/2017 4:25 AM [facility] Reflex Status Morphology review to follow. 09/19/2017 4:25 AM [facility] Immature Granulocytes % 0.5 0.0 - 1.0 % 09/19/2017 4:25 AM [facility] Blood BLOOD SPECIMEN / Unknown Venipuncture / Unknown 09/19/2017 2:43 AM CDT 09/19/2017 3:39 AM CDT Rebecca Melendez DATA TYPIST-RFID STRATEGIST LAB - HEMATOLOGY ORDERABLES Performing Organization Address City/State/[facility] Co de Phone Number [address] [phone] * (ABNORMAL) BASIC METABOLIC PANEL (CALCIUM TOTAL) (09/19/2017 2:43 AM CDT) BUN 26 7 - 26 mg/dL 09/19/2017 4:19 AM [facility] Creatinine 0.6 0.6 - 1.2 mg/dL 09/19/2017 4:19 AM [facility] Sodium 138 136 - 145 mmol/L 09/19/2017 4:19 AM [facility] Potassium 4.9(H) 3.5 - 4.5 mmol/L 09/19/2017 4:19 AM [facility] Chloride 98 98 - 107 mmol/L 09/19/2017 4:19 AM [facility] CO2 34(H) 22 - 29 mmol/L 09/19/2017 4:19 AM [facility] Glucose 153(H) 70 - 115 mg/dL 09/19/2017 4:19 AM [facility] Calcium 9.1 8.4 - 10.2 mg/dL 09/19/2017 4:19 AM [facility] Anion Gap 11 8 - 18 09/19/2017 4:19 AM [facility] BUN/Creatinine Ratio 43(H) 7 - 23 09/19/2017 4:19 AM [facility] Osmolality Calculated 294 270 - 300 mOsm/kg 09/19/2017 4:19 AM [facility] eGFR >60 >60 mL/min/1.7 3 m2 09/19/2017 4:19 AM [facility] Blood BLOOD SPECIMEN / Unknown Venipuncture / Unknown 09/19/2017 2:43 AM CDT 09/19/2017 3:39 AM CDT Rebecca Melendez DATA TYPIST-RFID STRATEGIST LAB - CHEMISTRY O RDERABLES [address] [phone] * PHOSPHORUS BLOOD (09/19/2017 2:43 AM CDT) Phosphorus 2.5 2.3 - 4.7 mg/dL 09/19/2017 4:19 AM [facility] Blood BLOOD SPECIMEN / Unknown Venipuncture / Unknown 09/19/2017 2:43 AM CDT 09/19/2017 3:39 AM CDT Rebecca Alissa Sopchoppy DATA TYPIST-RFID STRATEGIST LAB - CHEMISTRY O RDERABLES [address] [phone] * (ABNORMAL) GLUCOSE - POINT OF CARE (09/18/2017 4:50 PM CDT) Glucose WB/POC 140(H) 70 - 115 mg/dL 09/18/2017 5:04 PM CDT [facility] Blood BLOOD SPECIMEN / Unknown 09/18/2017 4:50 PM CDT 09/18/2017 5:04 PM CDT Narrative [facility] - 09/18/2017 5:04 PM CDT Distributor Operator: SMITH ??NOA Jason Nash MD LAB - POINT OF CARE ORDERABLES [facility] [address] [phone] * XR CHEST 1VW PORTABLE (09/18/2017 2:45 PM CDT) Anatomical Region Laterality Modality Chest Radiographic Shama ging 09/18/2017 4:42 PM CDT Impressions 09/18/2017 4:44 PM CDT IMPRESSION: Bilateral opacities, not significantly changed. This report was electronically signed by SILAS NGUYỄN MD ??on 09/18/2017 4:44 PM . Narrative 09/18/2017 4:44 PM CDT Exam: ??XR CHEST 1VW PORTABLE History: ??J96.01: Acute respiratory failure with hypoxia Comparison: 09/15/2017 Findings: A tracheostomy terminates in the midthoracic trachea. There is a moderate left pleural effusion with basilar atelectasis or consolidation, slightly increased. There is a small right pleural effusion, unchanged. There are mild interstitial opacities which may represent vascular congestion or possibly interstitial pneumonia. No pneumothorax is seen. The cardiac silhouette is partly obscured. Procedure Note Silas Nguyễn MD - 09/18/2017 Exam: XR CHEST 1VW PORTABLE History: J96.01: Acute respiratory failure with hypoxia Comparison: 09/15/2017 Findings: A tracheostomy terminates in the midthoracic trachea. There is amoderate left pleural effusion with basilar atelectasis or consolidation,slightly increased. There is a small right pleural effusion, unchanged. There are mild interstitial opacities which may represent vascular congestion or possibly interstitial pneumonia. No pneumothorax is seen. The cardiac silhouette is partly obscured. IMPRESSION: Bilateral opacities, not significantly changed. This report was electronically signed by SILAS NGUYỄN MD on09/18/2017 4:44 PM . Poncho Galarza MD DIAGNOSTIC IMAGING O RDERABLES * GLUCOSE - POINT OF CARE (09/18/2017 1:00 PM CDT) Glucose WB/POC 111 70 - 115 mg/dL 09/18/2017 1:13 PM CDT [facility] Blood BLOOD SPECIMEN / Unknown 09/18/2017 1:00 PM CDT 09/18/2017 1:13 PM CDT Narrative [facility] - 09/18/2017 1:13 PM CDT Distributor Operator: SMITH ??NOA Jason Nash MD LAB - POINT OF CARE ORDERABLES Performing Organization Address [facility]/ZIP Co de Phone Number [address] [phone] * MAGNESIUM BLOOD (09/18/2017 11:04 AM CDT) Magnesium 2.6 1.6 - 2.6 mg/dL 09/18/2017 11:39 AM CDT [facility] Blood BLOOD SPECIMEN / Unknown Venipuncture / Unknown 09/18/2017 11:04 AM CDT 09/18/2017 11:06 AM CDT Jason Nash MD LAB - CHEMISTRY ROYCE KLINE Performing Organization Address [facility]/ZIP Co de Phone Number [address] [phone] * PHOSPHORUS BLOOD (09/18/2017 12:03 AM CDT) Phosphorus 2.8 2.3 - 4.7 mg/dL 09/18/2017 12:48 AM CDT [facility] Blood BLOOD SPECIMEN / Unknown Lab Venipuncture / Unknown 09/18/2017 12:03 AM CDT 09/18/2017 12:03 AM CDT Rebecca Melendez APRN-JEANNIE LAB - CHEMISTRY O RDERABLES [facility] [address] [place] [address] * MAGNESIUM BLOOD (09/18/2017 12:03 AM CDT) Pathologist [facility] Magnesium 2.0 1.6 - 2.6 mg/dL 09/18/2017 12:48 AM [facility] Blood BLOOD SPECIMEN / Unknown Lab Venipuncture / Unknown 09/18/2017 12:03 AM CDT 09/18/2017 12:03 AM CDT Rebecca Melendez DATA TYPIST-RFID STRATEGIST LAB - CHEMISTRY O RDERABLES [address] [phone] * (ABNORMAL) CBC W AUTO DIFFERENTIAL (09/18/2017 12:03 AM CDT) Pathologist [facility] WBC 8.7 3.5 - 10.5 10? 3 /uL 09/18/2017 12:31 AM [facility] RBC 3.09(L) 4.30 - 5.70 10? 6 /uL 09/18/2017 12:31 AM [facility] Hemoglobin 8.8(L) 13.5 - 17.5 g/dL 09/18/2017 12:31 AM [facility] Hematocrit 29.6(L) 39.0 - 50.0 % 09/18/2017 12:31 AM [facility] MCV 95.8 81.0 - 97.0 fL 09/18/2017 12:31 AM [facility] MCH 28.5 28.0 - 34.0 pg 09/18/2017 12:31 AM [facility] MCHC 29.7(L) 32.0 - 36.0 g/dL 09/18/2017 12:31 AM [facility] Platelet Count 199 150 - 400 10? 3 /uL 09/18/2017 12:31 AM [facility] RDW-SD 76.1(H) 36.0 - 50.0 fL 09/18/2017 12:31 AM [facility] RDW-CV 21.4(H) 11.2 - 14.8 % 09/18/2017 12:31 AM [facility] MPV 13.3(H) 9.3 - 12.8 fL 09/18/2017 12:31 AM [facility] Neutrophils % 79.2(H) 35.0 - 70.0 % 09/18/2017 12:31 AM [facility] Lymphocytes % 10.1(L) 19.7 - 55.1 % 09/18/2017 12:31 AM [facility] Monocytes % 7.4 3.0 - 15.0 % 09/18/2017 12:31 AM [facility] Eosinophils % 3.1 0.0 - 6.0 % 09/18/2017 12:31 AM [facility] Basophil % 0.2 0.0 - 1.5 % 09/18/2017 12:31 AM [facility] Neutrophils Absolute 6.9 1.6 - 7.0 10? 3 /uL 09/18/2017 12:31 AM [facility] Lymphocyte Absolute 0.9 0.8 - 2.9 10? 3 /uL 09/18/2017 12:31 AM [facility] Monocytes Absolute 0.64 0.14 - 0.66 10? 3 /uL 09/18/2017 12:31 AM [facility] Eosinophils Absolute 0.27(H) 0.00 - 0.22 10? 3 /uL 09/18/2017 12:31 AM [facility] Basophils Absolute 0.02 0.00 - 0.06 10? 3 /uL 09/18/2017 12:31 AM [facility] Immature Granulocytes % 0.3 0.0 - 1.0 % 09/18/2017 12:31 AM [facility] Blood BLOOD SPECIMEN / Unknown Lab Venipuncture / Unknown 09/18/2017 12:03 AM CDT 09/18/2017 12:03 AM [facility] Rebecca Melendez DATA TYPIST-RFID STRATEGIST LAB - HEMATOLOGY ORDERABLES Performing Organization Address City/State/[facility] Co de Phone Number [facility] [address] [phone] * (ABNORMAL) BASIC METABOLIC PANEL (CALCIUM TOTAL) (09/18/2017 12:03 AM CDT) BUN 25 7 - 26 mg/dL 09/18/2017 12:48 AM [facility] Creatinine 0.6 0.6 - 1.2 mg/dL 09/18/2017 12:48 AM [facility] Sodium 140 136 - 145 mmol/L 09/18/2017 12:48 AM [facility] Potassium 3.4(L) 3.5 - 4.5 mmol/L 09/18/2017 12:48 AM [facility] Chloride 95(L) 98 - 107 mmol/L 09/18/2017 12:48 AM [facility] CO2 35(H) 22 - 29 mmol/L 09/18/2017 12:48 AM [facility] Glucose 135(H) 70 - 115 mg/dL 09/18/2017 12:48 AM [facility] Calcium 9.0 8.4 - 10.2 mg/dL 09/18/2017 12:48 AM [facility] Anion Gap 13 8 - 18 09/18/2017 12:48 AM [facility] BUN/Creatinine Ratio 42(H) 7 - 23 09/18/2017 12:48 AM [facility] Osmolality Calculated 296 270 - 300 mOsm/kg 09/18/2017 12:48 AM [facility] eGFR >60 >60 mL/min/1.7 3 m2 09/18/2017 12:48 AM [facility] Blood BLOOD SPECIMEN / Unknown Lab Venipuncture / Unknown 09/18/2017 12:03 AM CDT 09/18/2017 12:03 AM CDT Rebecca Melendez APRN-RFID STRATEGIST LAB - CHEMISTRY O RDERABLES [address] [phone] * (ABNORMAL) GLUCOSE - POINT OF CARE (09/17/2017 7:18 PM CDT) Pathologist [facility] Glucose WB/POC 157(H) 70 - 115 mg/dL 09/17/2017 7:31 PM CDT [facility] Blood BLOOD SPECIMEN / Unknown 09/17/2017 7:18 PM CDT 09/17/2017 7:31 PM CDT Narrative [facility] - 09/17/2017 7:31 PM CDT Distributor Operator: SLACK ??QUE Jason Nash MD LAB - POINT OF CARE ORDERABLES [facility] [address] [place] [address] * (ABNORMAL) GLUCOSE - POINT OF CARE (09/17/2017 12:04 PM CDT) Glucose WB/POC 164(H) 70 - 115 mg/dL 09/17/2017 12:24 PM CDT [facility] Blood BLOOD SPECIMEN / Unknown 09/17/2017 12:04 PM CDT 09/17/2017 12:23 PM CDT Narrative [facility] - 09/17/2017 12:24 PM CDT Distributor Operator: SLACK ??QUE Jason Nash MD LAB - POINT OF CARE ORDERABLES [address] [phone] * (ABNORMAL) RBC MORPHOLOGY (09/17/2017 4:33 AM CDT) Platelet Estimate Adequate Adequate 09/17/2017 5:55 AM CDT [facility] Microcytes 1+(A) None 09/17/2017 5:55 AM CDT [facility] Hypochromia 1+(A) None 09/17/2017 5:55 AM CDT [facility] Ovalocytes 1+(A) None 09/17/2017 5:55 AM CDT [facility] Blood BLOOD SPECIMEN / Unknown Venipuncture / Unknown 09/17/2017 4:33 AM CDT 09/17/2017 4:42 AM CDT Rebecca Melendez [facility] LAB - HEMATOLOGY ORDERABLES Performing Organization Address City/[facility]/ZIP Co de Phone Number [address] [phone] * MAGNESIUM BLOOD (09/17/2017 4:33 AM CDT) Pathologist [facility] Magnesium 1.9 1.6 - 2.6 mg/dL 09/17/2017 5:16 AM [facility] Blood BLOOD SPECIMEN / Unknown Venipuncture / Unknown 09/17/2017 4:33 AM CDT 09/17/2017 4:42 AM CDT Rebecca L Al [facility] LAB - CHEMISTRY O RDERABLES Performing Organization Address [facility]/ZIP Co de Phone Number [address] [phone] * (ABNORMAL) CBC W AUTO DIFFERENTIAL (09/17/2017 4:33 AM CDT) [facility] WBC 8.1 3.5 - 10.5 10? 3 /uL 09/17/2017 5:05 AM [facility] RBC 3.04(L) 4.30 - 5.70 10? 6 /uL 09/17/2017 5:05 AM [facility] Hemoglobin 8.7(L) 13.5 - 17.5 g/dL 09/17/2017 5:05 AM [facility] Hematocrit 29.2(L) 39.0 - 50.0 % 09/17/2017 5:05 AM [facility] MCV 96.1 81.0 - 97.0 fL 09/17/2017 5:05 AM [facility] MCH 28.6 28.0 - 34.0 pg 09/17/2017 5:05 AM [facility] MCHC 29.8(L) 32.0 - 36.0 g/dL 09/17/2017 5:05 AM [facility] Platelet Count 182 150 - 400 10? 3 /uL 09/17/2017 5:05 AM [facility] RDW-SD 76.7(H) 36.0 - 50.0 fL 09/17/2017 5:05 AM [facility] RDW-CV 21.9(H) 11.2 - 14.8 % 09/17/2017 5:05 AM [facility] MPV 13.6(H) 9.3 - 12.8 fL 09/17/2017 5:05 AM [facility] Neutrophils % 78.7(H) 35.0 - 70.0 % 09/17/2017 5:05 AM [facility] Lymphocytes % 10.7(L) 19.7 - 55.1 % 09/17/2017 5:05 AM [facility] Monocytes % 8.0 3.0 - 15.0 % 09/17/2017 5:05 AM [facility] Eosinophils % 2.1 0.0 - 6.0 % 09/17/2017 5:05 AM [facility] Basophil % 0.5 0.0 - 1.5 % 09/17/2017 5:05 AM [facility] Neutrophils Absolute 6.4 1.6 - 7.0 10? 3 /uL 09/17/2017 5:05 AM [facility] Lymphocyte Absolute 0.9 0.8 - 2.9 10? 3 /uL 09/17/2017 5:05 AM [facility] Monocytes Absolute 0.65 0.14 - 0.66 10? 3 /uL 09/17/2017 5:05 AM [facility] Eosinophils Absolute 0.17 0.00 - 0.22 10? 3 /uL 09/17/2017 5:05 AM [facility] Basophils Absolute 0.04 0.00 - 0.06 10? 3 /uL 09/17/2017 5:05 AM [facility] Immature Granulocytes % 0.5 0.0 - 1.0 % 09/17/2017 5:05 AM [facility] Blood BLOOD SPECIMEN / Unknown Venipuncture / Unknown 09/17/2017 4:33 AM CDT 09/17/2017 4:42 AM T Rebecca Melendez DATA TYPIST-RFID STRATEGIST LAB - HEMATOLOGY ORDERABLES [facility] [address] [phone] * (ABNORMAL) BASIC METABOLIC PANEL (CALCIUM TOTAL) (09/17/2017 4:33 AM CDT) [facility] BUN 19 7 - 26 mg/dL 09/17/2017 5:16 AM [facility] Creatinine 0.6 0.6 - 1.2 mg/dL 09/17/2017 5:16 AM [facility] Sodium 139 136 - 145 mmol/L 09/17/2017 5:16 AM [facility] Potassium 3.6 3.5 - 4.5 mmol/L 09/17/2017 5:16 AM [facility] Chloride 96(L) 98 - 107 mmol/L 09/17/2017 5:16 AM [facility] CO2 32(H) 22 - 29 mmol/L 09/17/2017 5:16 AM [facility] Glucose 120(H) 70 - 115 mg/dL 09/17/2017 5:16 AM [facility] Calcium 8.8 8.4 - 10.2 mg/dL 09/17/2017 5:16 AM [facility] Anion Gap 15 8 - 18 09/17/2017 5:16 AM [facility] BUN/Creatinine Ratio 32(H) 7 - 23 09/17/2017 5:16 AM [facility] Osmolality Calculated 291 270 - 300 mOsm/kg 09/17/2017 5:16 AM [facility] eGFR >60 >60 mL/min/1.7 3 m2 09/17/2017 5:16 AM [facility] Blood BLOOD SPECIMEN / Unknown Venipuncture / Unknown 09/17/2017 4:33 AM CDT 09/17/2017 4:42 AM CDT Rebecca Melendez APRN-RFID STRATEGIST LAB - [place] [address], [facility] [phone] * PHOSPHORUS BLOOD (09/17/2017 4:33 AM CDT) [facility] Phosphorus 3.2 2.3 - 4.7 mg/dL 09/17/2017 5:16 AM CDT [facility] Blood BLOOD SPECIMEN / Unknown Venipuncture / Unknown 09/17/2017 4:33 AM CDT 09/17/2017 4:42 AM CDT Rebecca Melendez DATA TYPIST-RFID STRATEGIST LAB - CHEMISTRY O RDERABLES [address] [phone] * GLUCOSE - POINT OF CARE (09/16/2017 11:18 PM CDT) Glucose WB/POC 111 70 - 115 mg/dL 09/16/2017 11:32 PM CDT [facility] Blood BLOOD SPECIMEN / Unknown 09/16/2017 11:18 PM CDT 09/16/2017 11:32 PM CDT Narrative [facility] - 09/16/2017 11:32 PM CDT Distributor Operator: AMY ??CHRISTIANO Jason Nash MD LAB - POINT OF CARE ORDERABLES Performing Organization Address [facility]/ZIP Co de Phone Number [address] [phone] * GLUCOSE - POINT OF CARE (09/16/2017 6:41 PM CDT) Glucose WB/POC 98 70 - 115 mg/dL 09/16/2017 6:55 PM CDT [facility] Blood BLOOD SPECIMEN / Unknown 09/16/2017 6:41 PM CDT 09/16/2017 6:55 PM CDT Narrative [facility] - 09/16/2017 6:55 PM CDT Distributor Operator: SG ??JOSE L Jason Nash MD LAB - POINT OF CARE ORDERABLES [address] [phone] * GLUCOSE - POINT OF CARE (09/16/2017 12:22 PM CDT) Glucose WB/POC 91 70 - 115 mg/dL 09/16/2017 12:35 PM CDT [facility] Blood BLOOD SPECIMEN / Unknown 09/16/2017 12:22 PM CDT 09/16/2017 12:35 PM CDT Narrative [facility] - 09/16/2017 12:35 PM CDT Distributor Operator: CHELA ??GLADYS Jason Nash MD LAB - POINT OF CARE ORDERABLES Performing Organization Address City/[facility]/ZIP Co de Phone Number [address] [phone] * GLUCOSE - POINT OF CARE (09/16/2017 5:56 AM CDT) Glucose WB/POC 79 70 - 115 mg/dL 09/16/2017 6:10 AM CDT [facility] Blood BLOOD SPECIMEN / Unknown 09/16/2017 5:56 AM CDT 09/16/2017 6:10 AM CDT Narrative [facility] - 09/16/2017 6:10 AM CDT Distributor Operator: LYUBOV ??RADHA Jason Nash MD LAB - POINT OF CARE ORDERABLES Performing Organization Address City/[facility]/ZIP Co de Phone Number [address] [phone] * (ABNORMAL) RBC MORPHOLOGY (09/16/2017 4:13 AM CDT) Platelet Estimate Adequate Adequate 09/16/2017 5:12 AM CDT [facility] Anisocytosis 1+(A) None 09/16/2017 5:12 AM CDT [facility] Hypochromia 1+(A) None 09/16/2017 5:12 AM CDT [facility] Blood BLOOD SPECIMEN / Unknown Venipuncture / Unknown 09/16/2017 4:13 AM CDT 09/16/2017 4:18 AM CDT Veronica Costello MD LAB - HEMATOLOGY ORD ERABLES [facility] [address] [phone] * (ABNORMAL) CBC W AUTO DIFFERENTIAL (09/16/2017 4:13 AM T) WBC 8.5 3.5 - 10.5 10? 3 /uL 09/16/2017 4:25 AM [facility] RBC 2.87(L) 4.30 - 5.70 10? 6 /uL 09/16/2017 4:25 AM [facility] Hemoglobin 8.1(L) 13.5 - 17.5 g/dL 09/16/2017 4:25 AM [facility] Hematocrit 27.6(L) 39.0 - 50.0 % 09/16/2017 4:25 AM [facility] MCV 96.2 81.0 - 97.0 fL 09/16/2017 4:25 AM [facility] MCH 28.2 28.0 - 34.0 pg 09/16/2017 4:25 AM [facility] MCHC 29.3(L) 32.0 - 36.0 g/dL 09/16/2017 4:25 AM [facility] Platelet Count 172 150 - 400 10? 3 /uL 09/16/2017 4:25 AM [facility] RDW-SD 76.1(H) 36.0 - 50.0 fL 09/16/2017 4:25 AM [facility] RDW-CV 22.0(H) 11.2 - 14.8 % 09/16/2017 4:25 AM [facility] MPV 12.8 9.3 - 12.8 fL 09/16/2017 4:25 AM [facility] Neutrophils % 80.7(H) 35.0 - 70.0 % 09/16/2017 4:25 AM [facility] Lymphocytes % 9.9(L) 19.7 - 55.1 % 09/16/2017 4:25 AM [facility] Monocytes % 7.0 3.0 - 15.0 % 09/16/2017 4:25 AM [facility] Eosinophils % 2.2 0.0 - 6.0 % 09/16/2017 4:25 AM CDT [facility] Basophil % 0.2 0.0 - 1.5 % 09/16/2017 4:25 AM T [facility] Neutrophils Absolute 6.8 1.6 - 7.0 10? 3 /uL 09/16/2017 4:25 AM T [facility] Lymphocyte Absolute 0.8 0.8 - 2.9 10? 3 /uL 09/16/2017 4:25 AM T [facility] Monocytes Absolute 0.59 0.14 - 0.66 10? 3 /uL 09/16/2017 4:25 AM T [facility] Eosinophils Absolute 0.19 0.00 - 0.22 10? 3 /uL 09/16/2017 4:25 AM T [facility] Basophils Absolute 0.02 0.00 - 0.06 10? 3 /uL 09/16/2017 4:25 AM [facility] Immature Granulocytes % 0.7 0.0 - 1.0 % 09/16/2017 4:25 AM T [facility] Blood BLOOD SPECIMEN / Unknown Venipuncture / Unknown 09/16/2017 4:13 AM CDT 09/16/2017 4:18 AM CDT Veronica Costello MD LAB - HEMATOLOGY ORD ERABLES [address] [phone] * MAGNESIUM BLOOD (09/16/2017 4:13 AM CDT) Magnesium 2.1 1.6 - 2.6 mg/dL 09/16/2017 4:39 AM CDT [facility] Blood BLOOD SPECIMEN / Unknown Venipuncture / Unknown 09/16/2017 4:13 AM CDT 09/16/2017 4:17 AM CDT Veronica Costello MD LAB - CHEMISTRY ORDMarj KLINE [address] [phone] * (ABNORMAL) BASIC METABOLIC PANEL (CALCIUM TOTAL) (09/16/2017 4:13 AM CDT) BUN 18 7 - 26 mg/dL 09/16/2017 4:39 AM [facility] Creatinine 0.6 0.6 - 1.2 mg/dL 09/16/2017 4:39 AM [facility] Sodium 138 136 - 145 mmol/L 09/16/2017 4:39 AM [facility] Potassium 4.1 3.5 - 4.5 mmol/L 09/16/2017 4:39 AM [facility] Chloride 96(L) 98 - 107 mmol/L 09/16/2017 4:39 AM [facility] CO2 32(H) 22 - 29 mmol/L 09/16/2017 4:39 AM [facility] Glucose 92 70 - 115 mg/dL 09/16/2017 4:39 AM [facility] Calcium 8.8 8.4 - 10.2 mg/dL 09/16/2017 4:39 AM [facility] Anion Gap 14 8 - 18 09/16/2017 4:39 AM [facility] BUN/Creatinine Ratio 30(H) 7 - 23 09/16/2017 4:39 AM [facility] Osmolality Calculated 288 270 - 300 mOsm/kg 09/16/2017 4:39 AM [facility] eGFR >60 >60 mL/min/1.7 3 m2 09/16/2017 4:39 AM [facility] Blood BLOOD SPECIMEN / Unknown Venipuncture / Unknown 09/16/2017 4:13 AM CDT 09/16/2017 4:17 AM T Veronica Costello MD LAB - CHEMISTRY ROYCE KLINE [facility] Organization Address City/State/ZIP Co de Phone Number [address] [phone] * PHOSPHORUS BLOOD (09/16/2017 4:13 AM CDT) Pathologist [facility] Phosphorus 2.6 2.3 - 4.7 mg/dL 09/16/2017 4:39 AM CDT [facility] Blood BLOOD SPECIMEN / Unknown Venipuncture / Unknown 09/16/2017 4:13 AM CDT 09/16/2017 4:17 AM CDT Delphine Waddell APRN-RFID STRATEGIST LAB - CHEMISTRY ORDERABLES Performing Organization Address City/[facility]/[place] [address], [facility] [phone] * GLUCOSE - POINT OF CARE (09/16/2017 12:23 AM CDT) Glucose WB/POC 89 70 - 115 mg/dL 09/16/2017 12:36 AM CDT [facility] Blood BLOOD SPECIMEN / Unknown 09/16/2017 12:23 AM CDT 09/16/2017 12:36 AM CDT Narrative [facility] - 09/16/2017 12:36 AM CDT Distributor Operator: LYUBOV ??RADHA Jason Nash MD LAB - POINT OF CARE ORDERABLES Performing Organization Address City/[facility]/[place] [address], [facility] [phone] * GLUCOSE - POINT OF CARE (09/15/2017 6:01 PM CDT) Glucose WB/POC 99 70 - 115 mg/dL 09/15/2017 6:33 PM CDT [facility] Blood BLOOD SPECIMEN / Unknown 09/15/2017 6:01 PM CDT 09/15/2017 6:33 PM CDT Narrative [facility] - 09/15/2017 6:33 PM CDT Distributor Operator: SG ??JOSE L Jason Nash MD LAB - POINT [place] [address], [facility] [phone] * GLUCOSE - POINT OF CARE (09/15/2017 11:56 AM CDT) Glucose WB/POC 104 70 - 115 mg/dL 09/15/2017 12:09 PM CDT [facility] Blood BLOOD SPECIMEN / Unknown 09/15/2017 11:56 AM CDT 09/15/2017 12:09 PM CDT Narrative [facility] - 09/15/2017 12:09 PM CDT Distributor Operator: CHELA ??GLADYS Jason Nahs MD LAB - POINT OF CARE ORDERABLES Performing Organization Address City/State/[facility] Co de Phone Number [address] [phone] * EGD (09/15/2017 8:58 AM CDT) Report [...] insertion. The externally ? removable 24 Fr [employer] gastrostomy tube was lubricated. The G-tube ? [...] Procedure Code(s): ? --- Professional --- ? 97120, Esophagogastroduoden oscopy, flexible, transoral; with directed ? placement of percutaneous gastrostomy tube Diagnosis Code(s): ?--- Professional --- ?R13.10, Dysphagia, unspecified ?Z43.1, Encounter for attention to gastrostomy ?R63.3, Feeding difficulties CPT copyright 2016 [employer]. All rights reserved. The codes documented in this report are preliminary and upon certified medical coder review may be revised to meet current compliance requirements. Louis Mcconnell MD 09/15/2017 10:44:23 AM Note Initiated On: 09/15/2017 8:58 AM Number of Addenda: 0 ? [facility] ? [address] 09/15/2017 8:58 AM CDT Louis Mcconnell MD GI PROCEDURE ORDERAB LES Performing Organization Address City/[facility]/ZIP Co de Phone Number [facility] * GLUCOSE - POINT OF CARE (09/15/2017 8:05 AM CDT) Glucose WB/POC 97 70 - 115 mg/dL 09/15/2017 8:18 AM CDT [facility] Blood BLOOD SPECIMEN / Unknown 09/15/2017 8:05 AM CDT 09/15/2017 8:18 AM CDT Narrative [facility] - 09/15/2017 8:18 AM CDT Distributor Operator: CHELA ?CRISTINA Jason Nash MD LAB - POINT OF CARE ORDERABLES Performing Organization Address [facility] Co de Phone Number [address] [phone] * XR CHEST 1VW PORTABLE (09/15/2017 5:22 AM CDT) Anatomical Region Laterality Modality Chest Radiographic Shama ging 09/15/2017 10:0 2 AM CDT Impressions 09/16/2017 5:29 PM CDT FINDINGS/IMPRESSION: The tracheostomy tube terminates in the superior thoracic trachea. The weighted tip feeding tube terminates in the gastric fundus just distal to the gastroesophageal junction. The left pigtail thoracostomy tube has been removed in the interval. Diffuse patchy interstitial and airspace opacities representing pulmonary edema and/or multifocal pneumonia have not significantly changed in the interval. There is an interval decrease in the, now small, left pleural effusion with associated atelectasis/airspace disease. The small right pleural effusion and associated atelectasis/airspace disease has not significantly changed. The cardiomediastinal silhouette is normal. Dictated by Jay Bowens MD (president). This report was approved ??by Jay Bowens Dr ?? on 09/16/2017 4:35 PM . I, Dr. PAOLO AGUILAR M.D. have personally reviewed and interpreted this examination/study. This report was electronically signed by PAOLO AGUILAR M.D. ??on 09/16/2017 5:29 PM . Narrative 09/16/2017 5:29 PM CDT EXAMINATION: XR CHEST 1VW PORTABLE HISTORY: R09.02: Hypoxemia COMPARISON: AP portable chest dated 09/14/2017. Procedure Note Paolo Aguilar MD - 09/16/2017 EXAMINATION: XR CHEST 1VW PORTABLE HISTORY: R09.02: Hypoxemia COMPARISON: AP portable chest dated 09/14/2017. FINDINGS/IMPRESSION: The tracheostomy tube terminates in the superior thoracic trachea. The weighted tip feeding tube terminates in the gastric fundus just distalto the gastroesophageal junction. The left pigtail thoracostomy tube hasbeen removed in the interval. Diffuse patchy interstitial and airspace opacities representingpulmonary edema and/or multifocal pneumonia have not significantly changed in the interval. There is an interval decrease in the, now small, left pleural effusion with associated atelectasis/airspace disease. The small right pleural effusion and associated atelectasis/airspace disease has not significantly changed. The cardiomediastinal silhouette is normal. Dictated by Jay Bowens MD (president). This report was approved by Jay Bowens Dr on 09/16/2017 4:35 PM . I, Dr. PAOLO AGUILAR M.D. have personally reviewed and interpreted this examination/study. This report was electronically signed by PAOLO AGUILAR M.D. on 09/16/2017 5:29 PM . Veronica Costello MD DIAGNOSTIC IMAGING O RDERABLES * (ABNORMAL) DIFFERENTIAL MANUAL (09/15/2017 4:41 AM CDT) WBC (corrected for NRBC) 8.6 10? 3 /uL 09/15/2017 6:06 AM [facility] Total Cell Count 100 09/16/19 18 6:06 AM [facility] Neutrophils Absolute Manual 7.48(H) 1.60 - 7.00 10? 3 /uL 09/15/2017 6:06 AM [facility] Comment:(BANDS+SEGS) x WBC = NEUT # (ANC) Lymphocyte Absolute Manual 0.77(L) 0.80 - 2.90 10? 3 /uL 09/15/2017 6:06 AM [facility] Monocytes Absolute Manual 0.34 0.14 - 0.66 10? 3 /uL 09/15/2017 6:06 AM [facility] Neutrophil % Manual 87(H) 30 - 60 % 09/15/2017 6:06 AM [facility] Lymphocyte % Manual 9(L) 20 - 45 % 09/15/2017 6:06 AM [facility] Monocytes % Manual 4 2 - 10 % 09/15/2017 6:06 AM [facility] Platelet Estimate Adequate Adequate 09/15/2017 6:06 AM [facility] Anisocytosis 1+(A) None 09/15/2017 6:06 AM [facility] Hypochromia 1+(A) None 09/15/2017 6:06 AM [facility] Schistocytes Few(A) None 09/15/2017 6:06 AM [facility] Ovalocytes 1+(A) None 09/15/2017 6:06 AM [facility] Blood BLOOD SPECIMEN / Unknown Venipuncture / Unknown 09/15/2017 4:41 AM CDT 09/15/2017 4:56 AM CDT Veronica Costello MD LAB - HEMATOLOGY ORD ERABLES [facility] [address] [phone] * TYPE + SCREEN PANEL (09/15/2017 4:41 AM CDT) [facility] Antibody Screen NEG 8 6:06 AM CDT [facility] ABO Rh A POS 09/15/2017 6:06 AM CDT [facility] Blood Bank BLOOD SPECIMEN / Unknown Venipuncture / Unknown 09/15/2017 4:41 AM CDT 09/15/2017 5:13 AM CDT Delphine Nadira COSTAN-RFID STRATEGIST LAB - BLOOD BANK ORDERABLES Performing Organization Address City/[facility] Co de Phone Number [facility] [address] * (ABNORMAL) CBC W AUTO DIFFERENTIAL (09/15/2017 4:41 AM CDT) [facility] WBC 8.6 3.5 - 10.5 10? 3 /uL 09/15/2017 5:20 AM [facility] RBC 2.89(L) 4.30 - 5.70 10? 6 /uL 09/15/2017 5:20 AM [facility] Hemoglobin 8.2(L) 13.5 - 17.5 g/dL 09/15/2017 5:20 AM [facility] Hematocrit 27.6(L) 39.0 - 50.0 % 09/15/2017 5:20 AM [facility] MCV 95.5 81.0 - 97.0 fL 09/15/2017 5:20 AM [facility] MCH 28.4 28.0 - 34.0 pg 09/15/2017 5:20 AM [facility] MCHC 29.7(L) 32.0 - 36.0 g/dL 09/15/2017 5:20 AM [facility] Platelet Count 186 150 - 400 10? 3 /uL 09/15/2017 5:20 AM [facility] RDW-SD 74.8(H) 36.0 - 50.0 fL 09/15/2017 5:20 AM CDT [facility] RDW-CV 22.0(H) 11.2 - 14.8 % 09/15/2017 5:20 AM CDT [facility] MPV 13.1(H) 9.3 - 12.8 fL 09/15/2017 5:20 AM CDT [facility] Blood BLOOD SPECIMEN / Unknown Venipuncture / Unknown 09/15/2017 4:41 AM CDT 09/15/2017 4:56 AM CDT Veronica Costello MD LAB - HEMATOLOGY ORD ERABLES [address] [phone] * MAGNESIUM BLOOD (09/15/2017 4:41 AM CDT) Magnesium 1.8 1.6 - 2.6 mg/dL 09/15/2017 5:51 AM T [facility] Blood BLOOD SPECIMEN / Unknown Venipuncture / Unknown 09/15/2017 4:41 AM CDT 09/15/2017 4:56 AM CDT Veronica Costello MD LAB - CHEMISTRY ORDE RABLES [address] [phone] * (ABNORMAL) BASIC METABOLIC PANEL (CALCIUM TOTAL) (09/15/2017 4:41 AM CDT) BUN 23 7 - 26 mg/dL 09/15/2017 5:51 AM T [facility] Creatinine 0.6 0.6 - 1.2 mg/dL 09/15/2017 5:51 AM T [facility] Sodium 138 136 - 145 mmol/L 09/15/2017 5:51 AM T [facility] Potassium 3.8 3.5 - 4.5 mmol/L 09/15/2017 5:51 AM T [facility] Chloride 95(L) 98 - 107 mmol/L 09/15/2017 5:51 AM T [facility] CO2 33(H) 22 - 29 mmol/L 09/15/2017 5:51 AM [facility] Glucose 103 70 - 115 mg/dL 09/15/2017 5:51 AM [facility] Calcium 8.8 8.4 - 10.2 mg/dL 09/15/2017 5:51 AM [facility] Anion Gap 14 8 - 18 09/15/2017 5:51 AM [facility] BUN/Creatinine Ratio 38(H) 7 - 23 09/15/2017 5:51 AM [facility] Osmolality Calculated 290 270 - 300 mOsm/kg 09/15/2017 5:51 AM [facility] eGFR >60 >60 mL/min/1.7 3 m2 09/15/2017 5:51 AM [facility] Blood BLOOD SPECIMEN / Unknown Venipuncture / Unknown 09/15/2017 4:41 AM CDT 09/15/2017 4:56 AM CDT Veronica Costello MD LAB - CHEMISTRY ROYCE KLINE [facility] Organization Address City/State/ZIP Co de Phone Number [address] [phone] * (ABNORMAL) B-TYPE NATRIURETIC PEPTIDE (09/15/2017 4:41 AM CDT) BNP 694(H) See Comment pg/mL 09/15/2017 5:35 AM [facility] Comment: A decision threshold of 100 pg/mL has been demonstrated to provide the maximal combination of sensitivity, specificity and predictive value for the diagnosis of congestive heart failure (CHF). ??Virtually all patients with no evidence of CHF have BNP values less than 100 pg/mL. A BNP value greater than 100 pg/mL is consistent with the diagnosis of CHF in the appropriate clinical setting. In a study of 693 patients (male and female) with diagnosed CHF, the following values were determined based on the NYHA functional classification system: NYHA Functional Class ?Mean Valule (pg/mL) ? % >100 pg/mL ?I ?320 ? 58.1 ?II ? 432 ? 73.0 ?III ?656 ? 79.0 ?IV ?1635 ? 98.3 ? Blood BLOOD SPECIMEN / Unknown Venipuncture / Unknown 09/15/2017 4:41 AM CDT 09/15/2017 4:56 AM CDT Veronica Costello MD LAB - CHEMISTRY ROYCE KLINE [facility] Organization Address [facility]/State/[facility] Co de Phone Number [facility] [address] [phone] * (ABNORMAL) PT-INR [facility] (09/15/2017 4:41 AM CDT) PT 15.1(H) 12.1 - 14.8 Seconds 09/15/2017 5:33 AM CDT [facility] INR 1.2 See Comment 09/15/2017 5:33 AM CDT [facility] Comment: Suggested therapeutic range for low-intensity coumadin therapy for venous thromboembolism prophylaxis is an INR of 2.0-3.0. ??For high risk patients (Mitral Valve Prosthesis, Atrial Fibrillation, history of TIA/stroke), suggested prophylactic therapeutic range is an INR of 2.5-3.5. Blood BLOOD SPECIMEN / Unknown Venipuncture / Unknown 09/15/2017 4:41 AM CDT 09/15/2017 4:56 AM CDT Veronica Costello MD LAB - COAGULATION OR DERABLES Performing Organization Address City/[facility]/ZIP Co de Phone Number [address] [phone] * (ABNORMAL) GLUCOSE - POINT OF CARE (09/15/2017 2:23 AM CDT) Glucose WB/POC 145(H) 70 - 115 mg/dL 09/15/2017 2:38 AM CDT [facility] Blood BLOOD SPECIMEN / Unknown 09/15/2017 2:23 AM CDT 09/15/2017 2:38 AM CDT [facility] - 09/15/2017 2:38 AM CDT Distributor Operator: SHEREE ROJAS Jason Nash MD LAB - POINT OF CARE ORDERABLES Performing Organization Address [facility]/ZIP Co de Phone Number [address] [phone] * (ABNORMAL) GLUCOSE - POINT OF CARE (09/14/2017 7:45 PM CDT) Glucose WB/POC 165(H) 70 - 115 mg/dL 09/14/2017 8:08 PM CDT [facility] Blood BLOOD SPECIMEN / Unknown 09/14/2017 7:45 PM CDT 09/14/2017 8:08 PM CDT Narrative [facility] - 09/14/2017 8:08 PM CDT Distributor Operator: SHEREE ROJAS Jason Nash MD LAB - POINT OF CARE ORDERABLES Performing Organization Address [facility]/[place] [address], [facility] [phone] * (ABNORMAL) GLUCOSE - POINT OF CARE (09/14/2017 6:27 PM CDT) Glucose WB/POC 170(H) 70 - 115 mg/dL 09/14/2017 6:48 PM CDT [facility] Blood BLOOD SPECIMEN / Unknown 09/14/2017 6:27 PM CDT 09/14/2017 6:48 PM CDT Narrative [facility] - 09/14/2017 6:48 PM CDT Distributor Operator: STRUM ?WYATT Jason Nash MD LAB - POINT OF CARE ORDERABLES Performing Organization Address [facility]/ZIP Co de Phone Number [address] [phone] * (ABNORMAL) GLUCOSE - POINT OF CARE (09/14/2017 12:46 PM CDT) Glucose WB/POC 183(H) 70 - 115 mg/dL 09/14/2017 1:16 PM CDT [facility] Blood BLOOD SPECIMEN / Unknown 09/14/2017 12:46 PM CDT 09/14/2017 1:16 PM CDT [facility] - 09/14/2017 1:16 PM CDT Distributor Operator: STRUM ?WYATT Jason Nash MD LAB - POINT OF CARE ORDERABLES Performing Organization Address [facility]/ZIP Co de Phone Number [address] [phone] * (ABNORMAL) GLUCOSE - POINT OF CARE (09/14/2017 6:34 AM CDT) Glucose WB/POC 149(H) 70 - 115 mg/dL 09/14/2017 6:48 AM CDT [facility] Blood BLOOD SPECIMEN / Unknown 09/14/2017 6:34 AM CDT 09/14/2017 6:48 AM CDT [facility] - 09/14/2017 6:48 AM CDT Distributor Operator: SHEREE ??GRECIA Jason Nash MD LAB - POINT OF CARE ORDERABLES [address] [phone] * XR CHEST 1VW PORTABLE (09/14/2017 6:19 AM CDT) Anatomical Region Laterality Modality Chest Radiographic Shama ging 09/14/2017 7:59 AM CDT Impressions 09/14/2017 10:19 AM CDT FINDINGS/IMPRESSION: Interval placement of a tracheostomy tube is seen with the tip terminating in the superior thoracic trachea. The weighted tip feeding tube terminates in the gastric body. A left pigtail thoracostomy tube is unchanged in position, projecting over the left costophrenic angle. The layering left pleural effusion with associated atelectasis/airspace disease is not significantly changed in the interval. Left upper lobe infiltrates persist. The small right pleural effusion and associated atelectasis/airspace disease is unchanged. No pneumothorax is identified. The cardiomediastinal silhouette is partially obscured and remains enlarged. Pulmonary vascular congestion. Dictated by Jay Bowens MD (president). I, Dr. SULLY RUANO M.D. have personally reviewed and interpreted this examination/study. This report was electronically signed by SULLY RUANO M.D. ??on 09/14/2017 10:19 AM . Narrative 09/14/2017 10:19 AM CDT EXAMINATION: XR CHEST 1VW PORTABLE HISTORY: R09.02: Hypoxemia J90: Pleural effusion, not elsewhere classified G06.2: Extradural and subdural abscess, unspecified COMPARISON: [facility] portable chest dated 09/13/2017 Procedure Note Sully Ruano MD - 09/14/2017 EXAMINATION: XR CHEST 1VW PORTABLE HISTORY: R09.02: Hypoxemia J90: Pleural effusion, not elsewhere classified G06.2: Extradural and subdural abscess, unspecified COMPARISON: [facility] portable chest dated 09/13/2017 FINDINGS/IMPRESSION: Interval placement of a tracheostomy tube is seen with the tipterminating in the superior thoracic trachea. The weighted tip feeding tubeterminates in the gastric body. A left pigtail thoracostomy tube is unchanged in position, projecting over the left costophrenic angle. The layering left pleural effusion with associated atelectasis/airspace disease is not significantly changed in the interval. Left upper lobe infiltrates persist. The small right pleural effusion and associated atelectasis/airspace disease is unchanged. No pneumothorax isidentified. The cardiomediastinal silhouette is partially obscured and remains enlarged. Pulmonary vascular congestion. Dictated by Jay Bowens MD (president). I, Dr. SULLY RUANO M.D. have personally reviewed and interpreted this examination/study. This report was electronically signed by SULLY RUANO M.D. on 09/14/2017 10:19 AM . Veronica Costello MD DIAGNOSTIC IMAGING O RDERABLES * (ABNORMAL) DIFFERENTIAL MANUAL (09/14/2017 5:21 AM CDT) WBC (corrected for NRBC) 10.1 10? 3 /uL 09/14/2017 6:45 AM [facility] Total Cell Count 100 09/14/2017 6:45 AM [facility] Neutrophils Absolute Manual 8.08(H) 1.60 - 7.00 10? 3 /uL 09/14/2017 6:45 AM [facility] Comment:(BANDS+SEGS) x WBC = NEUT # (ANC) Lymphocyte Absolute Manual 0.61(L) 0.80 - 2.90 10? 3 /uL 09/14/2017 6:45 AM [facility] Monocytes Absolute Manual 1.31(H) 0.14 - 0.66 10? 3 /uL 09/14/2017 6:45 AM [facility] Eosinophils Absolute Manual 0.10 0.00 - 0.22 10? 3 /uL 09/14/2017 6:45 AM [facility] Band % Manual 2 0 - 10 % 09/14/2017 6:45 AM [facility] Neutrophil % Manual 78(H) 30 - 60 % 09/14/2017 6:45 AM [facility] Lymphocyte % Manual 6(L) 20 - 45 % 09/14/2017 6:45 AM [facility] Monocytes % Manual 13(H) 2 - 10 % 09/14/2017 6:45 AM [facility] Eosinophils % Manual 1 1 - 6 % 09/14/2017 6:45 AM [facility] Platelet Estimate Adequate Adequate 09/14/2017 6:45 AM [facility] RBC Morphology Normal 09/14/2017 6:45 AM [facility] Blood BLOOD SPECIMEN / Unknown Venipuncture / Unknown 09/14/2017 5:21 AM CDT 09/14/2017 5:30 AM T Veronica Costello MD LAB - HEMATOLOGY ORD ERABLES [facility] [address] [phone] * (ABNORMAL) CBC W AUTO DIFFERENTIAL (09/14/2017 5:21 AM T) WBC 10.1 3.5 - 10.5 10? 3 /uL 09/14/2017 5:52 AM [facility] Comment:The WBC count is cor rected by the instrument for nRBC's RBC 3.00(L) 4.30 - 5.70 10? 6 /uL 09/14/2017 5:52 AM [facility] Hemoglobin 8.7(L) 13.5 - 17.5 g/dL 09/14/2017 5:52 AM [facility] Hematocrit 28.4(L) 39.0 - 50.0 % 09/14/2017 5:52 AM [facility] MCV 94.7 81.0 - 97.0 fL 09/14/2017 5:52 AM [facility] MCH 29.0 28.0 - 34.0 pg 09/14/2017 5:52 AM [facility] MCHC 30.6(L) 32.0 - 36.0 g/dL 09/14/2017 5:52 AM [facility] Platelet Count 224 150 - 400 10? 3 /uL 09/14/2017 5:52 AM [facility] RDW-SD 75.0(H) 36.0 - 50.0 fL 09/14/2017 5:52 AM [facility] RDW-CV 21.9(H) 11.2 - 14.8 % 09/14/2017 5:52 AM CDT [facility] MPV 13.2(H) 9.3 - 12.8 fL 09/14/2017 5:52 AM CDT [facility] nRBC Absolute 0.15(H) 0 10? 3 /uL 09/14/2017 5:52 AM CDT [facility] nRBC Auto 1.5(H) 0 /100 WBC 09/14/2017 5:52 AM CDT [facility] Reflex Status Manual Differential to follow. 09/14/2017 5:52 AM CDT [facility] Blood BLOOD SPECIMEN / Unknown Venipuncture / Unknown 09/14/2017 5:21 AM CDT 09/14/2017 5:30 AM CDT Veronica Costello MD LAB - HEMATOLOGY ORD ERABLES Performing Organization Address City/[facility]/ZIP Co de Phone Number [address] [phone] * MAGNESIUM BLOOD (09/14/2017 5:21 AM CDT) Magnesium 1.6 1.6 - 2.6 mg/dL 09/14/2017 5:53 AM T [facility] Blood BLOOD SPECIMEN / Unknown Venipuncture / Unknown 09/14/2017 5:21 AM CDT 09/14/2017 5:30 AM CDT Veronica Costello MD LAB - CHEMISTRY ORDMarj RABANGELIA [address] [phone] * (ABNORMAL) BASIC METABOLIC PANEL (CALCIUM TOTAL) (09/14/2017 5:21 AM CDT) BUN 21 7 - 26 mg/dL 09/14/2017 5:53 AM CDT [facility] Creatinine 0.6 0.6 - 1.2 mg/dL 09/14/2017 5:53 AM CDT [facility] Sodium 138 136 - 145 mmol/L 09/14/2017 5:53 AM [facility] Potassium 3.7 3.5 - 4.5 mmol/L 09/14/2017 5:53 AM [facility] Chloride 96(L) 98 - 107 mmol/L 09/14/2017 5:53 AM [facility] CO2 32(H) 22 - 29 mmol/L 09/14/2017 5:53 AM [facility] Glucose 136(H) 70 - 115 mg/dL 09/14/2017 5:53 AM [facility] Calcium 8.7 8.4 - 10.2 mg/dL 09/14/2017 5:53 AM [facility] Anion Gap 14 8 - 18 09/14/2017 5:53 AM [facility] BUN/Creatinine Ratio 35(H) 7 - 23 09/14/2017 5:53 AM [facility] Osmolality Calculated 291 270 - 300 mOsm/kg 09/14/2017 5:53 AM [facility] eGFR >60 >60 mL/min/1.7 3 m2 09/14/2017 5:53 AM [facility] Blood BLOOD SPECIMEN / Unknown Venipuncture / Unknown 09/14/2017 5:21 AM CDT 09/14/2017 5:30 AM CDT Veronica Costello MD LAB - CHEMISTRY ROYCE KLINE [address] [phone] * GLUCOSE - POINT OF CARE (09/14/2017 12:20 AM CDT) Glucose WB/POC 88 70 - 115 mg/dL 09/14/2017 12:35 AM T [facility] Blood BLOOD SPECIMEN / Unknown 09/14/2017 12:20 AM CDT 09/14/2017 12:35 AM CDT Narrative [facility] - 09/14/2017 12:35 AM CDT Distributor Operator: SHEREE ??GRECIA Jason Nash MD LAB - POINT OF CARE ORDERABLES [place] [address] [phone] * XR ABDOMEN KUB (09/13/2017 7:16 PM CDT) Anatomical Region Laterality Modality Abdomen Radiographic Shama ging 09/14/2017 10:0 9 AM CDT Impressions 09/14/2017 10:16 AM CDT IMPRESSION: A weighted tip feeding tube is seen terminating in the proximal stomach, just distal to the gastroesophageal junction. Catheter tubing in the left lower chest is incompletely imaged. An interbody fusion cage is identified at the L1-2 level. The right hip arthroplasty screw is partially imaged. Dictated by Jay Bowens MD (president). Dr. SULLY Stringer M.D. have personally reviewed and interpreted this examination/study. This report was electronically signed by SULLY RUANO M.D. ??on 09/14/2017 10:16 AM . Narrative 09/14/2017 10:16 AM CDT EXAMINATION: XR ABDOMEN KUB HISTORY: Enteric tube placement COMPARISON: AP portable abdomen dated 09/06/2017 Procedure Note Sully Ruano MD - 09/14/2017 EXAMINATION: XR ABDOMEN KUB HISTORY: Enteric tube placement COMPARISON: AP portable abdomen dated 09/06/2017 IMPRESSION: A weighted tip feeding tube is seen terminating in the proximal stomach, just distal to the gastroesophageal junction. Catheter tubing in theleft lower chest is incompletely imaged. An interbody fusion cage is identified at the L1-2 level. The right hip arthroplasty screw is partially imaged. Dictated by Jay Bowens MD (president). Dr. SULLY Stringer M.D. have personally reviewed and interpreted this examination/study. This report was electronically signed by SULLY RUANO M.D. on 09/14/2017 10:16 AM . Ivonne Rubin MD DIAGNOSTIC IMAGING O RDERABLES * GLUCOSE - POINT OF CARE (09/13/2017 6:45 PM CDT) Glucose WB/POC 91 70 - 115 mg/dL 09/13/2017 6:58 PM CDT [facility] Blood BLOOD SPECIMEN / Unknown 09/13/2017 6:45 PM CDT 09/13/2017 6:58 PM CDT [facility] - 09/13/2017 6:58 PM CDT Distributor Operator: Ajith) ??GLENDY Jason Nash MD LAB - POINT OF CARE ORDERABLES [address] [phone] * GLUCOSE - POINT OF CARE (09/13/2017 11:14 AM CDT) Glucose WB/POC 108 70 - 115 mg/dL 09/13/2017 11:45 AM CDT [facility] Blood BLOOD SPECIMEN / Unknown 09/13/2017 11:14 AM CDT 09/13/2017 11:45 AM CDT [facility] - 09/13/2017 11:45 AM CDT Distributor Operator: FELIPA(colton) ??GLENDY Jason Nash MD LAB - POINT OF CARE ORDERABLES [address] [phone] * GLUCOSE - POINT OF CARE (09/13/2017 7:02 AM CDT) Glucose WB/POC 101 70 - 115 mg/dL 09/13/2017 7:40 AM CDT [facility] Blood BLOOD SPECIMEN / Unknown 09/13/2017 7:02 AM CDT 09/13/2017 7:40 AM CDT [facility] - 09/13/2017 7:40 AM CDT Distributor Operator: RIKKI ??DANIELLE Jason Nash MD LAB - POINT OF CARE ORDERABLES [address] [phone] * XR CHEST 1VW PORTABLE (09/13/2017 5:20 AM CDT) Anatomical Region Laterality Modality Chest Radiographic Shama ging 09/13/2017 9:06 AM CDT Impressions 09/13/2017 11:53 AM CDT FINDINGS/IMPRESSION: The endotracheal tube terminates in the midthoracic trachea. A feeding tube extends below the diaphragm. The left pigtail thoracostomy tube is unchanged in position, projecting over the left costophrenic angle. There is a mild interval increase in the layering left pleural effusion with associated atelectasis/airspace disease. The small right pleural effusion and associated atelectasis/airspace disease is unchanged. No pneumothorax is identified. The cardiac silhouette remains enlarged. Dictated by Jay Bowens MD (president). Dr. SILAS Stringer MD have personally reviewed and interpreted this examination/study. This report was electronically signed by SILAS NGUYỄN MD ??on 09/13/2017 11:53 AM . Narrative 09/13/2017 11:53 AM CDT EXAMINATION: XR CHEST 1VW PORTABLE HISTORY: R09.02: Hypoxemia J90: Pleural effusion, not elsewhere classified COMPARISON: AP portable chest dated 09/11/2017 Procedure Note Silas Nguyễn MD - 09/13/2017 EXAMINATION: XR CHEST 1VW PORTABLE HISTORY: R09.02: Hypoxemia J90: Pleural effusion, not elsewhere classified COMPARISON: AP portable chest dated 09/11/2017 FINDINGS/IMPRESSION: The endotracheal tube terminates in the midthoracic trachea. A feeding tube extends below the diaphragm. The left pigtail thoracostomy tube is unchanged in position, projecting over the left costophrenic angle. There is a mild interval increase in the layering left pleural effusion with associated atelectasis/airspace disease. The small right pleural effusion and associated atelectasis/airspace disease is unchanged. No pneumothorax is identified. The cardiac silhouette remains enlarged. Dictated by Jay Bowens MD (president). Dr. SILAS Stringer MD have personally reviewed and interpreted this examination/study. This report was electronically signed by SILAS NGUYỄN MD on09/13/2017 11:53 AM . Veronica Costello MD DIAGNOSTIC IMAGING O RDERABLES * (ABNORMAL) RBC MORPHOLOGY (09/13/2017 5:17 AM CDT) Macrocytosis 1+(A) None 09/13/2017 6:30 AM [facility] Blood BLOOD SPECIMEN / Unknown Venipuncture / Unknown 09/13/2017 5:17 AM CDT 09/13/2017 5:23 AM CDT Veronica Costello MD LAB - HEMATOLOGY ORD ERABLES [facility] [address] [place] [address] * (ABNORMAL) CBC W AUTO DIFFERENTIAL (09/13/2017 5:17 AM CDT) WBC 8.9 3.5 - 10.5 10? 3 /uL 09/13/2017 6:30 AM [facility] RBC 2.95(L) 4.30 - 5.70 10? 6 /uL 09/13/2017 6:30 AM [facility] Hemoglobin 8.5(L) 13.5 - 17.5 g/dL 09/13/2017 6:30 AM [facility] Hematocrit 27.6(L) 39.0 - 50.0 % 09/13/2017 6:30 AM [facility] MCV 93.6 81.0 - 97.0 fL 09/13/2017 6:30 AM [facility] MCH 28.8 28.0 - 34.0 pg 09/13/2017 6:30 AM [facility] MCHC 30.8(L) 32.0 - 36.0 g/dL 09/13/2017 6:30 AM [facility] Platelet Count 213 150 - 400 10? 3 /uL 09/13/2017 6:30 AM [facility] RDW-SD 70.6(H) 36.0 - 50.0 fL 09/13/2017 6:30 AM [facility] RDW-CV 21.5(H) 11.2 - 14.8 % 09/13/2017 6:30 AM [facility] MPV 13.0(H) 9.3 - 12.8 fL 09/13/2017 6:30 AM [facility] Neutrophils % 82.9(H) 35.0 - 70.0 % 09/13/2017 6:30 AM [facility] Lymphocytes % 10.1(L) 19.7 - 55.1 % 09/13/2017 6:30 AM [facility] Monocytes % 3.4 3.0 - 15.0 % 09/13/2017 6:30 AM [facility] Eosinophils % 3.4 0.0 - 6.0 % 09/13/2017 6:30 AM [facility] Basophil % 0.2 0.0 - 1.5 % 09/13/2017 6:30 AM [facility] Neutrophils Absolute 7.4(H) 1.6 - 7.0 10? 3 /uL 09/13/2017 6:30 AM [facility] Lymphocyte Absolute 0.9 0.8 - 2.9 10? 3 /uL 09/13/2017 6:30 AM [facility] Monocytes Absolute 0.30 0.14 - 0.66 10? 3 /uL 09/13/2017 6:30 AM [facility] Eosinophils Absolute 0.30(H) 0.00 - 0.22 10? 3 /uL 09/13/2017 6:30 AM [facility] Basophils Absolute 0.02 0.00 - 0.06 10? 3 /uL 09/13/2017 6:30 AM [facility] Reflex Status Morphology review to follow. 09/13/2017 6:30 AM [facility] Comment:This is an appended report. These results have been appended to a previously final verified report. Immature Granulocytes % 0.8 0.0 - 1.0 % 09/13/2017 6:30 AM [facility] Blood BLOOD SPECIMEN / Unknown Venipuncture / Unknown 09/13/2017 5:17 AM CDT 09/13/2017 5:23 AM T Veronica Costello MD LAB - HEMATOLOGY ORD ERABLES [facility] [address] [place] [address] * MAGNESIUM BLOOD (09/13/2017 5:17 AM CDT) Pathologist [facility] Magnesium 1.6 1.6 - 2.6 mg/dL 09/13/2017 5:41 AM [facility] Blood BLOOD SPECIMEN / Unknown Venipuncture / Unknown 09/13/2017 5:17 AM CDT 09/13/2017 5:23 AM CDT Veronica Costello MD LAB - CHEMISTRY ROYCE KLINE [address] [phone] * (ABNORMAL) BASIC METABOLIC PANEL (CALCIUM TOTAL) (09/13/2017 5:17 AM CDT) Pathologist [facility] BUN 26 7 - 26 mg/dL 09/13/2017 5:41 AM [facility] Creatinine 0.6 0.6 - 1.2 mg/dL 09/13/2017 5:41 AM [facility] Sodium 139 136 - 145 mmol/L 09/13/2017 5:41 AM [facility] Potassium 4.6(H) 3.5 - 4.5 mmol/L 09/13/2017 5:41 AM [facility] Chloride 96(L) 98 - 107 mmol/L 09/13/2017 5:41 AM [facility] CO2 31(H) 22 - 29 mmol/L 09/13/2017 5:41 AM [facility] Glucose 96 70 - 115 mg/dL 09/13/2017 5:41 AM [facility] Calcium 9.0 8.4 - 10.2 mg/dL 09/13/2017 5:41 AM [facility] Anion Gap 17 8 - 18 09/13/2017 5:41 AM [facility] BUN/Creatinine Ratio 43(H) 7 - 23 09/13/2017 5:41 AM [facility] Osmolality Calculated 293 270 - 300 mOsm/kg 09/13/2017 5:41 AM CDT [facility] eGFR >60 >60 mL/min/1.7 3 m2 09/13/2017 5:41 AM CDT [facility] Blood BLOOD SPECIMEN / Unknown Venipuncture / Unknown 09/13/2017 5:17 AM CDT 09/13/2017 5:23 AM CDT Veronica Costello MD LAB - CHEMISTRY ROYEC KLINE [address] [phone] * (ABNORMAL) GLUCOSE - POINT OF CARE (09/12/2017 11:49 PM CDT) Glucose WB/POC 124(H) 70 - 115 mg/dL 09/13/2017 12:02 AM CDT [facility] Blood BLOOD SPECIMEN / Unknown 09/12/2017 11:49 PM CDT 09/13/2017 12:02 AM CDT [facility] - 09/13/2017 12:02 AM CDT Distributor Operator: TEETEE ??BETO Jason Nash MD LAB - POINT OF CARE ORDERABLES [address] [phone] * GLUCOSE - POINT OF CARE (09/12/2017 6:32 PM CDT) Glucose WB/POC 106 70 - 115 mg/dL 09/12/2017 6:58 PM CDT [facility] Blood BLOOD SPECIMEN / Unknown 09/12/2017 6:32 PM CDT 09/12/2017 6:58 PM CDT [facility] - 09/12/2017 6:58 PM CDT Distributor Operator: REUBEN ?BERNARDINO Jason Nash MD LAB - POINT OF CARE ORDERABLES [address] [phone] * GLUCOSE - POINT OF CARE (09/12/2017 1:33 PM CDT) Pathologist [facility] Glucose WB/POC 99 70 - 115 mg/dL 09/12/2017 1:55 PM [facility] Blood BLOOD SPECIMEN / Unknown 09/12/2017 1:33 PM CDT 09/12/2017 1:55 PM CDT Narrative [facility] - 09/12/2017 1:55 PM CDT Distributor Operator: REUBEN FAGAN Jason Nash MD LAB - POINT OF CARE ORDERABLES [facility] [address] [place] [address] * (ABNORMAL) DIFFERENTIAL MANUAL (09/12/2017 5:14 AM CDT) [facility] WBC (corrected for NRBC) 9.5 10? 3 /uL 09/12/2017 8:05 AM [facility] Total Cell Count 100 09/13/19 18 8:05 AM [facility] Neutrophils Absolute Manual 7.70(H) 1.60 - 7.00 10? 3 /uL 09/12/2017 8:05 AM [facility] Comment:(BANDS+SEGS) x WBC = NEUT # (ANC) Lymphocyte Absolute Manual 0.57(L) 0.80 - 2.90 10? 3 /uL 09/12/2017 8:05 AM [facility] Monocytes Absolute Manual 0.86(H) 0.14 - 0.66 10? 3 /uL 09/12/2017 8:05 AM [facility] Eosinophils Absolute Manual 0.38(H) 0.00 - 0.22 10? 3 /uL 09/12/2017 8:05 AM [facility] Neutrophil % Manual 81(H) 30 - 60 % 09/12/2017 8:05 AM [facility] Lymphocyte % Manual 6(L) 20 - 45 % 09/12/2017 8:05 AM [facility] Monocytes % Manual 9 2 - 10 % 09/12/2017 8:05 AM [facility] Eosinophils % Manual 4 1 - 6 % 09/12/2017 8:05 AM [facility] Platelet Estimate Adequate Adequate 018 8:05 AM [facility] Anisocytosis 1+(A) None 09/12/2017 8:05 AM [facility] Polychromasia 1+(A) None 09/12/2017 8:05 AM [facility] Ovalocytes 1+(A) None 09/12/2017 8:05 AM [facility] Blood BLOOD SPECIMEN / Unknown Venipuncture / Unknown 09/12/2017 5:14 AM CDT 09/12/2017 5:23 AM CDT Veronica Costello MD LAB - HEMATOLOGY ORD ERABLES [facility] [address] [place] [address] * (ABNORMAL) CBC W AUTO DIFFERENTIAL (09/12/2017 5:14 AM CDT) WBC 9.5 3.5 - 10.5 10? 3 /uL 09/12/2017 6:51 AM [facility] RBC 2.99(L) 4.30 - 5.70 10? 6 /uL 09/12/2017 6:51 AM [facility] Hemoglobin 8.6(L) 13.5 - 17.5 g/dL 09/12/2017 6:51 AM [facility] Hematocrit 28.8(L) 39.0 - 50.0 % 09/12/2017 6:51 AM [facility] MCV 96.3 81.0 - 97.0 fL 09/12/2017 6:51 AM [facility] MCH 28.8 28.0 - 34.0 pg 09/12/2017 6:51 AM [facility] MCHC 29.9(L) 32.0 - 36.0 g/dL 09/12/2017 6:51 AM [facility] Platelet Count 185 150 - 400 10? 3 /uL 09/12/2017 6:51 AM [facility] RDW-SD 74.2(H) 36.0 - 50.0 fL 09/12/2017 6:51 AM [facility] RDW-CV 21.8(H) 11.2 - 14.8 % 09/12/2017 6:51 AM [facility] MPV 13.6(H) 9.3 - 12.8 fL 09/12/2017 6:51 AM [facility] nRBC Absolute 0.00 0 10? 3 /uL 09/12/2017 6:51 AM [facility] nRBC Auto 0.0 0 /100 WBC 09/12/2017 6:51 AM [facility] Neutrophils % 81.8(H) 35.0 - 70.0 % 09/12/2017 6:51 AM [facility] Lymphocytes % 5.8(L) 19.7 - 55.1 % 09/12/2017 6:51 AM [facility] Monocytes % 8.6 3.0 - 15.0 % 09/12/2017 6:51 AM [facility] Eosinophils % 3.4 0.0 - 6.0 % 09/12/2017 6:51 AM [facility] Basophil % 0.4 0.0 - 1.5 % 09/12/2017 6:51 AM [facility] Neutrophils Absolute 7.7(H) 1.6 - 7.0 10? 3 /uL 09/12/2017 6:51 AM [facility] Lymphocyte Absolute 0.6(L) 0.8 - 2.9 10? 3 /uL 09/12/2017 6:51 AM [facility] Monocytes Absolute 0.81(H) 0.14 - 0.66 10? 3 /uL 09/12/2017 6:51 AM [facility] Eosinophils Absolute 0.32(H) 0.00 - 0.22 10? 3 /uL 09/12/2017 6:51 AM [facility] Basophils Absolute 0.04 0.00 - 0.06 10? 3 /uL 09/12/2017 6:51 AM [facility] Immature Granulocytes % 1.1(H) 0.0 - 1.0 % 09/12/2017 6:51 AM [facility] Blood BLOOD SPECIMEN / Unknown Venipuncture / Unknown 09/12/2017 5:14 AM CDT 09/12/2017 5:23 AM CDT Veronica Costello MD LAB - HEMATOLOGY ORD ERABLES [address] [phone] * MAGNESIUM BLOOD (09/12/2017 5:14 AM CDT) Magnesium 1.6 1.6 - 2.6 mg/dL 09/12/2017 5:50 AM T [facility] Blood BLOOD SPECIMEN / Unknown Venipuncture / Unknown 09/12/2017 5:14 AM CDT 09/12/2017 5:23 AM CDT Veronica Costello MD LAB - CHEMISTRY ROYCE KLINE Performing Organization Address City/[facility]/ZIP Co de Phone Number [address] [phone] * (ABNORMAL) BASIC METABOLIC PANEL (CALCIUM TOTAL) (09/12/2017 5:14 AM CDT) BUN 35(H) 7 - 26 mg/dL 09/12/2017 5:50 AM [facility] Creatinine 0.7 0.6 - 1.2 mg/dL 09/12/2017 5:50 AM T [facility] Sodium 139 136 - 145 mmol/L 09/12/2017 5:50 AM [facility] Potassium 5.0(H) 3.5 - 4.5 mmol/L 09/12/2017 5:50 AM [facility] Chloride 98 98 - 107 mmol/L 09/12/2017 5:50 AM T [facility] CO2 28 22 - 29 mmol/L 09/12/2017 5:50 AM [facility] Glucose 96 70 - 115 mg/dL 09/12/2017 5:50 AM T [facility] Calcium 8.6 8.4 - 10.2 mg/dL 09/12/2017 5:50 AM [facility] Anion Gap 18 8 - 18 09/12/2017 5:50 AM CDT [facility] BUN/Creatinine Ratio 50(H) 7 - 23 09/12/2017 5:50 AM CDT [facility] Osmolality Calculated 296 270 - 300 mOsm/kg 09/12/2017 5:50 AM CDT [facility] eGFR >60 >60 mL/min/1.7 3 m2 09/12/2017 5:50 AM CDT [facility] Blood BLOOD SPECIMEN / Unknown Venipuncture / Unknown 09/12/2017 5:14 AM CDT 09/12/2017 5:23 AM CDT Veronica Costello MD LAB - CHEMISTRY ORDE RAISA [address] [phone] * GLUCOSE - POINT OF CARE (09/12/2017 5:12 AM CDT) Glucose WB/POC 113 70 - 115 mg/dL 09/12/2017 5:44 AM CDT [facility] Blood BLOOD SPECIMEN / Unknown 09/12/2017 5:12 AM CDT 09/12/2017 5:44 AM CDT [facility] - 09/12/2017 5:44 AM CDT Distributor Operator: CARLOS ?JANET Jason Nash MD LAB - POINT OF CARE ORDERABLES [address] [phone] * GLUCOSE - POINT OF CARE (09/12/2017 1:14 AM CDT) Glucose WB/POC 114 70 - 115 mg/dL 09/12/2017 1:36 AM CDT [facility] Blood BLOOD SPECIMEN / Unknown 09/12/2017 1:14 AM CDT 09/12/2017 1:36 AM CDT Narrative [facility] - 09/12/2017 1:36 AM CDT Distributor Operator: CARLOS ?JANET Jason Nash MD LAB - POINT OF CARE ORDERABLES Performing Organization Address [facility]/ZIP Co de Phone Number [address] [phone] * (ABNORMAL) GLUCOSE - POINT OF CARE (09/11/2017 5:28 PM CDT) Glucose WB/POC 150(H) 70 - 115 mg/dL 09/11/2017 5:53 PM CDT [facility] Blood BLOOD SPECIMEN / Unknown 09/11/2017 5:28 PM CDT 09/11/2017 5:53 PM CDT Narrative [facility] - 09/11/2017 5:53 PM CDT Distributor Operator: PRINCESS CAMPBELL Jason Nash MD LAB - POINT OF CARE ORDERABLES Performing Organization Address [facility] Co de Phone Number [address] [phone] * (ABNORMAL) GLUCOSE - POINT OF CARE (09/11/2017 11:49 AM CDT) Glucose WB/POC 116(H) 70 - 115 mg/dL 09/11/2017 12:03 PM CDT [facility] Blood BLOOD SPECIMEN / Unknown 09/11/2017 11:49 AM CDT 09/11/2017 12:03 PM CDT Narrative [facility] - 09/11/2017 12:03 PM CDT Distributor Operator: PRINCESS CAMPBELL Jason Nash MD LAB - POINT OF CARE ORDERABLES Performing Organization Address City/[facility]/ZIP Co de Phone Number [address] [phone] * TYPE + SCREEN PANEL (09/11/2017 6:50 AM CDT) Antibody Screen NEG 8 7:42 AM CDT [facility] ABO Rh A POS 09/11/2017 7:42 AM CDT [facility] Blood Bank BLOOD SPECIMEN / Unknown Venipuncture / Unknown 09/11/2017 6:50 AM CDT 09/11/2017 6:59 AM CDT Veronica Costello MD LAB - BLOOD BANK ORD ERABLES [facility] [address] [place] [address], [facility] * XR CHEST 1VW (09/11/2017 6:33 AM CDT) Anatomical Region Laterality Modality Chest Radiographic Shama ging 09/11/2017 9:46 AM CDT Impressions 09/11/2017 11:22 AM CDT Findings/impression: The endotracheal tube tip overlies the midthoracic trachea. The enteric tube can be followed into the stomach and terminates out of the field of view. A left basilar pleural pigtail catheter is unchanged in position. A small right pleural effusion is associated with right basilar atelectasis/airspace disease, unchanged. Left basilar atelectasis/airspace disease with an associated small pleural effusion has decreased. No pneumothorax is identified. The cardiomediastinal silhouette is unchanged. This report has been dictated by Lala Rosas M.D. (Resident). This report was aproved ??by Lala Rosas M.D. ?? on 09/11/2017 10:55 AM . I, Dr. PAOLO AGUILAR M.D. have personally reviewed and interpreted this examination/study. This report was electronically signed by PAOLO AGUILAR M.D. ??on 09/11/2017 11:22 AM . Narrative 09/11/2017 11:22 AM CDT Exam: Chest, portable AP semiupright view Date: 09/11/2017 at 6:08 AM History: 66-year-old male with hypoxemia and severe sepsis Comparison: Portable chest radiograph dated 09/09/2017 at 3:27 PM Procedure Note Paolo Aguilar MD - 09/11/2017 Exam: Chest, portable AP semiupright view Date: 09/11/2017 at 6:08 AM History: 66-year-old male with hypoxemia and severe sepsis Comparison: Portable chest radiograph dated 09/09/2017 at 3:27 PM Findings/impression: The endotracheal tube tip overlies the midthoracic trachea. The enteric tube can be followed into the stomach and terminates out of the field of view. A left basilar pleural pigtail catheter is unchanged in position. A small right pleural effusion is associated with right basilar atelectasis/airspace disease, unchanged. Left basilaratelectasis/airspace disease with an associated small pleural effusion has decreased. No pneumothorax is identified. The cardiomediastinal silhouette isunchanged. This report has been dictated by Lala Rosas M.D. (Resident). This report was aproved by Lala Rosas M.D. on 09/11/2017 10:55 AM . I, Dr. PAOLO AGUILAR M.D. have personally reviewed and interpreted this examination/study. This report was electronically signed by PAOLO AGUILAR M.D. on 09/11/2017 11:22 AM . Veronica Costello MD DIAGNOSTIC IMAGING O RDERABLES * (ABNORMAL) GLUCOSE - POINT OF CARE (09/11/2017 5:54 AM CDT) Pathologist [facility] Glucose WB/POC 139(H) 70 - 115 mg/dL 09/11/2017 6:27 AM CDT [facility] Blood BLOOD SPECIMEN / Unknown 09/11/2017 5:54 AM CDT 09/11/2017 6:26 AM CDT Narrative [facility] - 09/11/2017 6:27 AM CDT Distributor Operator: DEE ??HOA Jason Nash MD LAB - POINT OF CARE ORDERABLES [address] [phone] * (ABNORMAL) RBC MORPHOLOGY (09/11/2017 4:37 AM CDT) [facility] Platelet Estimate Adequate Adequate 018 8:36 AM CDT [facility] Anisocytosis 1+(A) None 09/11/2017 8:36 AM CDT [facility] Polychromasia Occasional( A) None 09/11/2017 8:36 AM CDT [facility] Target Cells Occasional( A) None 09/11/2017 8:36 AM [facility] Ovalocytes 1+(A) None 09/11/2017 8:36 AM [facility] Blood BLOOD SPECIMEN / Unknown Venipuncture / Unknown 09/11/2017 4:37 AM CDT 09/11/2017 4:55 AM CDT Veronica Costello MD LAB - HEMATOLOGY ORD ERABLES [facility] [address] [phone] * (ABNORMAL) CBC W AUTO DIFFERENTIAL (09/11/2017 4:37 AM CDT) WBC 11.0(H) 3.5 - 10.5 10? 3 /uL 09/11/2017 5:35 AM [facility] RBC 3.07(L) 4.30 - 5.70 10? 6 /uL 09/11/2017 5:35 AM [facility] Hemoglobin 8.7(L) 13.5 - 17.5 g/dL 09/11/2017 5:35 AM [facility] Hematocrit 29.4(L) 39.0 - 50.0 % 09/11/2017 5:35 AM [facility] MCV 95.8 81.0 - 97.0 fL 09/11/2017 5:35 AM [facility] MCH 28.3 28.0 - 34.0 pg 09/11/2017 5:35 AM [facility] MCHC 29.6(L) 32.0 - 36.0 g/dL 09/11/2017 5:35 AM [facility] Platelet Count 234 150 - 400 10? 3 /uL 09/11/2017 5:35 AM [facility] RDW-SD 71.3(H) 36.0 - 50.0 fL 09/11/2017 5:35 AM [facility] RDW-CV 21.4(H) 11.2 - 14.8 % 09/11/2017 5:35 AM [facility] MPV 12.9(H) 9.3 - 12.8 fL 09/11/2017 5:35 AM [facility] nRBC Absolute 0.05(H) 0 10? 3 /uL 09/11/2017 5:35 AM [facility] nRBC Auto 0.4(H) 0 /100 WBC 09/11/2017 5:35 AM [facility] Comment:Confirmed by repeat analysis. Neutrophils % 82.9(H) 35.0 - 70.0 % 09/11/2017 5:35 AM [facility] Lymphocytes % 6.3(L) 19.7 - 55.1 % 09/11/2017 5:35 AM [facility] Monocytes % 7.9 3.0 - 15.0 % 09/11/2017 5:35 AM [facility] Eosinophils % 2.6 0.0 - 6.0 % 09/11/2017 5:35 AM [facility] Basophil % 0.3 0.0 - 1.5 % 09/11/2017 5:35 AM [facility] Neutrophils Absolute 9.1(H) 1.6 - 7.0 10? 3 /uL 09/11/2017 5:35 AM [facility] Lymphocyte Absolute 0.7(L) 0.8 - 2.9 10? 3 /uL 09/11/2017 5:35 AM [facility] Monocytes Absolute 0.87(H) 0.14 - 0.66 10? 3 /uL 09/11/2017 5:35 AM [facility] Eosinophils Absolute 0.29(H) 0.00 - 0.22 10? 3 /uL 09/11/2017 5:35 AM [facility] Basophils Absolute 0.03 0.00 - 0.06 10? 3 /uL 09/11/2017 5:35 AM [facility] Reflex Status Morphology review to follow. 09/11/2017 5:35 AM [facility] Immature Granulocytes % 1.6(H) 0.0 - 1.0 % 09/11/2017 5:35 AM [facility] Blood BLOOD SPECIMEN / Unknown Venipuncture / Unknown 09/11/2017 4:37 AM CDT 09/11/2017 4:55 AM CDT Veronica Costello MD LAB - HEMATOLOGY ORD ERABLES [address] [phone] * MAGNESIUM BLOOD (09/11/2017 4:37 AM CDT) Magnesium 1.7 1.6 - 2.6 mg/dL 09/11/2017 5:25 AM T [facility] Blood BLOOD SPECIMEN / Unknown Venipuncture / Unknown 09/11/2017 4:37 AM CDT 09/11/2017 4:55 AM CDT Veronica Costello MD LAB - CHEMISTRY ROYCE KLINE Performing Organization Address [facility]/ZIP Co de Phone Number [address] [phone] * (ABNORMAL) BASIC METABOLIC PANEL (CALCIUM TOTAL) (09/11/2017 4:37 AM CDT) BUN 39(H) 7 - 26 mg/dL 09/11/2017 5:25 AM [facility] Creatinine 0.8 0.6 - 1.2 mg/dL 09/11/2017 5:25 AM [facility] Sodium 142 136 - 145 mmol/L 09/11/2017 5:25 AM [facility] Potassium 5.5(H) 3.5 - 4.5 mmol/L 09/11/2017 5:25 AM [facility] Chloride 101 98 - 107 mmol/L 09/11/2017 5:25 AM [facility] CO2 25 22 - 29 mmol/L 09/11/2017 5:25 AM [facility] Glucose 123(H) 70 - 115 mg/dL 09/11/2017 5:25 AM [facility] Calcium 8.9 8.4 - 10.2 mg/dL 09/11/2017 5:25 AM [facility] Anion Gap 22(H) 8 - 18 09/11/2017 5:25 AM [facility] BUN/Creatinine Ratio 49(H) 7 - 23 09/11/2017 5:25 AM CDT [facility] Osmolality Calculated 305(H) 270 - 300 mOsm/kg 09/11/2017 5:25 AM T [facility] eGFR >60 >60 mL/min/1.7 3 m2 09/11/2017 5:25 AM T [facility] Blood BLOOD SPECIMEN / Unknown Venipuncture / Unknown 09/11/2017 4:37 AM CDT 09/11/2017 4:55 AM CDT Veronica Costello MD LAB - CHEMISTRY ROYCE KLINE [facility] [address] [phone] * (ABNORMAL) B-TYPE NATRIURETIC PEPTIDE (09/11/2017 4:37 AM CDT) BNP 806(H) See Comment pg/mL 09/11/2017 5:31 AM CDT [facility] Comment: A decision threshold of 100 pg/mL has been demonstrated to provide the maximal combination of sensitivity, specificity and predictive value for the diagnosis of congestive heart failure (CHF). ??Virtually all patients with no evidence of CHF have BNP values less than 100 pg/mL. A BNP value greater than 100 pg/mL is consistent with the diagnosis of CHF in the appropriate clinical setting. In a study of 693 patients (male and female) with diagnosed CHF, the following values were determined based on the NYHA functional classification system: NYHA Functional Class ?Mean Valule (pg/mL) ? % >100 pg/mL ?I ?320 ? 58.1 ?II ? 432 ? 73.0 ?III ?656 ? 79.0 ?IV ?1635 ? 98.3 ? Blood BLOOD SPECIMEN / Unknown Venipuncture / Unknown 09/11/2017 4:37 AM CDT 09/11/2017 4:55 AM CDT Veronica Costello MD LAB - CHEMISTRY ORDE RAISA Performing Organization Address [facility] de Phone Number [address] [phone] * PT-INR [facility] (09/11/2017 4:37 AM CDT) PT 14.1 12.1 - 14.8 Seconds 09/11/2017 5:15 AM CDT [facility] INR 1.1 See Comment 09/11/2017 5:15 AM CDT [facility] Comment: Suggested therapeutic range for low-intensity coumadin therapy for venous thromboembolism prophylaxis is an INR of 2.0-3.0. ??For high risk patients (Mitral Valve Prosthesis, Atrial Fibrillation, history of TIA/stroke), suggested prophylactic therapeutic range is an INR of 2.5-3.5. Blood BLOOD SPECIMEN / Unknown Venipuncture / Unknown 09/11/2017 4:37 AM CDT 09/11/2017 4:55 AM CDT Veronica Costello MD LAB - COAGULATION OR DERABLES Performing Organization Address [facility] de Phone Number [address] [phone] * (ABNORMAL) GLUCOSE - POINT OF CARE (09/11/2017 12:01 AM CDT) Glucose WB/POC 116(H) 70 - 115 mg/dL 09/11/2017 12:21 AM CDT [facility] Blood BLOOD SPECIMEN / Unknown 09/11/2017 12:01 AM CDT 09/11/2017 12:21 AM CDT [facility] - 09/11/2017 12:21 AM CDT Distributor Operator: DEE Brody?HOA Jason Nash MD LAB - POINT OF CARE ORDERABLES [address] [phone] * (ABNORMAL) GLUCOSE - POINT OF CARE (09/10/2017 6:16 PM CDT) Glucose WB/POC 157(H) 70 - 115 mg/dL 09/10/2017 6:47 PM CDT [facility] Blood BLOOD SPECIMEN / Unknown 09/10/2017 6:16 PM CDT 09/10/2017 6:46 PM CDT [facility] - 09/10/2017 6:47 PM CDT Distributor Operator: PRINCESS ??BINTA Jason Nash MD LAB - POINT OF CARE ORDERABLES [address] [phone] * (ABNORMAL) GLUCOSE - POINT OF CARE (09/10/2017 12:57 PM CDT) Glucose WB/POC 141(H) 70 - 115 mg/dL 09/10/2017 1:24 PM CDT [facility] Blood BLOOD SPECIMEN / Unknown 09/10/2017 12:57 PM CDT 09/10/2017 1:24 PM CDT [facility] - 09/10/2017 1:24 PM CDT Distributor Operator: PRINCESS ??BINTA Jason Nash MD LAB - POINT OF CARE ORDERABLES [facility] [address] [place] [address] * (ABNORMAL) BLOOD GASES ART (09/10/2017 5:57 AM CDT) pH Arterial 7.45 7.35 - 7.45 09/10/2017 6:08 AM [facility] pCO2 Arterial 44 35 - 45 mmHg 09/10/2017 6:08 AM [facility] pO2 Arterial 80 71 - 95 mmHg 09/10/2017 6:08 AM [facility] HCO3 Arterial 30.0(H) 22.0 - 26.0 mmol/L 09/10/2017 6:08 AM [facility] TCO2 Arterial 31.3(H) 25.0 - 29.0 mmol/L 09/10/2017 6:08 AM [facility] Base Excess Arterial 5.4(H) -2.0 - 2.0 mmol/L 09/10/2017 6:08 AM [facility] Hemoglobin Arterial 8.2(L) 13.5 - 17.5 g/dL 09/10/2017 6:08 AM [facility] Oxyhemoglobin Arterial 94.5(L) 95.0 - 100.0 % 09/10/2017 6:08 AM [facility] Carboxyhemoglobin 0.3 0.0 - 3.0 % 09/10/2017 6:08 AM [facility] Methemoglobin 0.7 0.0 - 2.0 % 09/10/2017 6:08 AM [facility] FI O2 Arterial 40.0 % 09/10/2017 6:08 AM [facility] Blood, arterial ARTERIAL BLOOD SPECIMEN / Unknown Arterial Puncture / Unknown 09/10/2017 5:57 AM CDT 09/10/2017 6:05 AM [facility] Delphine Waddell DATA TYPIST-RFID STRATEGIST LAB - BLOOD GASE S ORDERABLES [address] [phone] * (ABNORMAL) GLUCOSE - POINT OF CARE (09/10/2017 5:50 AM CDT) Glucose WB/POC 146(H) 70 - 115 mg/dL 09/10/2017 6:12 AM CDT [facility] Blood BLOOD SPECIMEN / Unknown 09/10/2017 5:50 AM CDT 09/10/2017 6:11 AM CDT Narrative [facility] - 09/10/2017 6:12 AM CDT Distributor Operator: DEE ??HOA Jason Nash MD LAB - POINT OF CARE ORDERABLES Performing Organization Address City/[facility]/[place] [address], [facility] [phone] * PTT [facility] (09/10/2017 5:49 AM CDT) APTT 29.7 23.0 - 38.4 Seconds 09/10/2017 5:58 AM CDT [facility] Comment: Suggested therapeutic range for full dose I.V. heparin therapy for venous thromboembolism is 66.0-91.0 seconds. Blood BLOOD SPECIMEN / Unknown Lab Venipuncture / Unknown 09/10/2017 5:49 AM CDT 09/10/2017 5:50 AM CDT Yogesh Duncan MD LAB - [place] [address], [facility] [phone] * (ABNORMAL) RBC MORPHOLOGY (09/10/2017 5:04 AM CDT) Platelet Estimate Adequate Adequate 09/10/2017 6:51 AM CDT [facility] Anisocytosis 1+(A) None 09/10/2017 6:51 AM CDT [facility] Stomatocytes 2+(A) None 09/10/2017 6:51 AM CDT [facility] Blood BLOOD SPECIMEN / Unknown Venipuncture / Unknown 09/10/2017 5:04 AM CDT 09/10/2017 5:08 AM CDT Jason Nash MD LAB - HEMATOLOGY ORD SP [facility] [address] [place] [address] * (ABNORMAL) BASIC METABOLIC PANEL (CALCIUM TOTAL) (09/10/2017 5:04 AM CDT) BUN 36(H) 7 - 26 mg/dL 09/10/2017 5:35 AM [facility] Creatinine 0.7 0.6 - 1.2 mg/dL 09/10/2017 5:35 AM [facility] Sodium 141 136 - 145 mmol/L 09/10/2017 5:35 AM [facility] Potassium 4.8(H) 3.5 - 4.5 mmol/L 09/10/2017 5:35 AM [facility] Chloride 103 98 - 107 mmol/L 09/10/2017 5:35 AM [facility] CO2 28 22 - 29 mmol/L 09/10/2017 5:35 AM [facility] Glucose 129(H) 70 - 115 mg/dL 09/10/2017 5:35 AM [facility] Calcium 8.6 8.4 - 10.2 mg/dL 09/10/2017 5:35 AM [facility] Anion Gap 15 8 - 18 09/10/2017 5:35 AM [facility] BUN/Creatinine Ratio >50(H) 7 - 23 09/10/2017 5:35 AM [facility] Osmolality Calculated 302(H) 270 - 300 mOsm/kg 09/10/2017 5:35 AM [facility] Blood BLOOD SPECIMEN / Unknown Venipuncture / Unknown 09/10/2017 5:04 AM CDT 09/10/2017 5:08 AM CDT Jason Nash MD LAB - CHEMISTRY ROYCE KLINE [facility] [address] [place] [address] * (ABNORMAL) CBC W AUTO DIFFERENTIAL (09/10/2017 5:04 AM [facility]) WBC 11.0(H) 3.5 - 10.5 10? 3 /uL 09/10/2017 5:19 AM [facility] Comment:The WBC count is cor rected by the instrument for nRBC's RBC 2.86(L) 4.30 - 5.70 10? 6 /uL 09/10/2017 5:19 AM [facility] Hemoglobin 8.0(L) 13.5 - 17.5 g/dL 09/10/2017 5:19 AM [facility] Hematocrit 27.1(L) 39.0 - 50.0 % 09/10/2017 5:19 AM [facility] MCV 94.8 81.0 - 97.0 fL 09/10/2017 5:19 AM [facility] MCH 28.0 28.0 - 34.0 pg 09/10/2017 5:19 AM [facility] MCHC 29.5(L) 32.0 - 36.0 g/dL 09/10/2017 5:19 AM [facility] Platelet Count 249 150 - 400 10? 3 /uL 09/10/2017 5:19 AM [facility] RDW-SD 69.0(H) 36.0 - 50.0 fL 09/10/2017 5:19 AM [facility] RDW-CV 21.1(H) 11.2 - 14.8 % 09/10/2017 5:19 AM [facility] MPV 12.4 9.3 - 12.8 fL 09/10/2017 5:19 AM [facility] nRBC Absolute 0.14(H) 0 10? 3 /uL 09/10/2017 5:19 AM [facility] nRBC Auto 1.2(H) 0 /100 WBC 09/10/2017 5:19 AM [facility] Neutrophils % 83.6(H) 35.0 - 70.0 % 09/10/2017 5:19 AM [facility] Lymphocytes % 4.9(L) 19.7 - 55.1 % 09/10/2017 5:19 AM [facility] Monocytes % 9.6 3.0 - 15.0 % 09/10/2017 5:19 AM [facility] Eosinophils % 1.4 0.0 - 6.0 % 09/10/2017 5:19 AM [facility] Basophil % 0.5 0.0 - 1.5 % 09/10/2017 5:19 AM [facility] Neutrophils Absolute 9.2(H) 1.6 - 7.0 10? 3 /uL 09/10/2017 5:19 AM [facility] Lymphocyte Absolute 0.5(L) 0.8 - 2.9 10? 3 /uL 09/10/2017 5:19 AM [facility] Monocytes Absolute 1.05(H) 0.14 - 0.66 10? 3 /uL 09/10/2017 5:19 AM [facility] Eosinophils Absolute 0.15 0.00 - 0.22 10? 3 /uL 09/10/2017 5:19 AM [facility] Basophils Absolute 0.05 0.00 - 0.06 10? 3 /uL 09/10/2017 5:19 AM [facility] Immature Granulocytes % 1.5(H) 0.0 - 1.0 % 09/10/2017 5:19 AM [facility] Blood BLOOD SPECIMEN / Unknown Venipuncture / Unknown 09/10/2017 5:04 AM CDT 09/10/2017 5:08 AM CDT Jason Nash MD LAB - HEMATOLOGY [place]Y [place] Performing Organization Address City/State/[facility] Co de Phone Number [address] [phone] * (ABNORMAL) GLUCOSE ACCUCHECK (09/09/2017 11:31 PM CDT) Glucose, Fingerstick 127(H) 70-115mg/d L mg/dL [facility] ARI (BEAKER) Comment: Insulin Protocol Distributor Operator: DEE ??HOA 09/09/2017 11:3 1 PM CDT Jason Nash MD LAB - CHEMISTRY ROYCE KLINE Performing Organization Address City/[facility] Co de Phone Number [facility] ARI JustinBANNER) * GLUCOSE ACCUCHECK (09/09/2017 5:10 PM CDT) Glucose, Fingerstick 99 70-115mg/d L mg/dL [facility] Comment:Distributor Operator: AYANNAKAYLIE HOU AUNDREA 09/09/2017 5:10 PM CDT Jason Nash MD LAB - CHEMISTRY ROYCE KLINE Performing Organization Address [facility] Co de Phone Number [facility] ARI ([facility] * CULTURE AEROBIC (09/09/2017 3:41 PM CDT) Culture Aerobic Light Growth S [facility] Comment:Normal oropharyngeal robert Gram Stain light White Blood Cells [facility] Gram Stain No Organism Seen [facility] Bronchial Washings SPECIMEN FROM LUNG OBTAINED BY BRONCHIAL WASHING PROCEDURE / Unknown 09/09/2017 3:41 PM CDT 09/09/2017 3:47 PM CDT Narrative [facility] - 09/11/2017 6:41 AM CDT Specimen Type->Bronchial Washings Resulting Lab: ?? [facility]CROBIOLOG[facility] [address] [place] [address] PH: [phone] Jason Nash MD LAB - MICROBIOLOGY O RDERABLES Performing Organization Address [facility] Co de Phone Number [facility] [address] [place] [address] * XR CHEST 1VW PORTABLE (09/09/2017 3:31 PM CDT) Anatomical Region Laterality Modality Chest Other Impressions 09/09/2017 4:31 PM CDT IMPRESSION: An endotracheal tube terminates at the mid thoracic trachea. A feeding tube extends to the stomach and beyond the [id number]. A left pleural pigtail catheter is partially imaged. Small right pleural effusion is unchanged. Left lower lobe opacity has decreased representing atelectasis versus airspace disease with possible persistent pleural effusion. Interstitial opacities are unchanged representing pulmonary edema and/or pneumonia. No pneumothorax is seen. The cardiac silhouette is partially obscured. The aorta is atherosclerotic. Report dictated by Rohan Hopkins M.D. (president). Dr. VIBHA Stringer M.D. have personally reviewed and interpreted this examination/study. This report was electronically signed by VIBHA PHELPS M.D. ??on 09/09/2017 4:31 PM . Narrative 09/09/2017 4:31 PM CDT EXAMINATION: PX CHEST 1 VW HISTORY: post-bronchoscopy COMPARISON: Same-day chest radiograph at 4:19 AM FINDINGS/ Procedure Note Vibha Phelps MD - 09/10/2017 EXAMINATION: PX CHEST 1 VW HISTORY: post-bronchoscopy COMPARISON: Same-day chest radiograph at 4:19 AM FINDINGS/ IMPRESSION IMPRESSION: An endotracheal tube terminates at the mid thoracic trachea. A feedingtube extends to the stomach and beyond the [id number]. A left pleuralpigtail catheter is partially imaged. Small right pleural effusion is unchanged. Left lower lobe opacity hasdecreased representing atelectasis versus airspace disease with possiblepersistent pleural effusion. Interstitial opacities are unchangedrepresenting pulmonary edema and/or pneumonia. No pneumothorax is seen. The cardiac silhouette is partiallyobscured. The aorta is atherosclerotic. Report dictated by Rohan Hopkins M.D. (president). Dr. VIBHA Stringer M.D. have personally reviewed and interpreted thisexamination/study. This report was electronically signed by VIBHA PHELPS M.D. on 09/09/20174:31 PM . Jason Nash MD DIAGNOSTIC IMAGING O RDERABLES * GLUCOSE ACCUCHECK (09/09/2017 11:57 AM CDT) Glucose, Fingerstick 79 70-115mg/d L mg/dL [facility] ARI (BEAKER) Comment:Distributor Operator: CHELA PATTERSON 09/09/2017 11:5 7 AM CDT Jason Nash MD LAB - CHEMISTRY ROYCE KLINE [facility] ARI HOOD) * (ABNORMAL) BASIC METABOLIC PANEL (CALCIUM TOTAL) (09/09/2017 10:31 AM CDT) BUN 36(H) 7 - 26 mg/dL [facility] Creatinine 0.8 0.6 - 1.2 mg/dL [facility] Sodium 142 136 - 145 mmol/L [facility] Potassium 4.7(H) 3.5 - 4.5 mmol/L [facility] Chloride 105 98 - 107 mmol/L [facility] CO2 26 22 - 29 mmol/L [facility] Glucose 80 70 - 115 mg/dL [facility] Calcium 8.5 8.4 - 10.2 mg/dL [facility] Anion Gap 16 8 - 18 [facility] BUN/Creatinine Ratio 45(H) 7 - 23 [facility] Osmolality Calculated 301(H) 270 - 300 mOsm/kg [facility] eGFR >60 >60 mL/min/1.7 3 m2 [facility] Blood specimen (specimen) BLOOD SPECIMEN / Unknown 09/09/2017 10:31 AM CDT 09/09/2017 10:40 AM CDT Jason Nash MD LAB - CHEMISTRY [facility] Organization Address City/State/ZIP Co de Phone Number [place] [id number] [address] [phone] * (ABNORMAL) BLOOD GASES ART (09/09/2017 8:41 AM CDT) pH Arterial 7.51(H) 7.35 - 7.45 [facility] pCO2 Arterial 38 35 - 45 mmHg [facility] pO2 Arterial 274(H) 71 - 95 mmHg [facility] HCO3 Arterial 29.2(H) 22.0 - 26.0 mmol/L [facility] TCO2 Arterial 30.4(H) 25.0 - 29.0 mmol/L [facility] Base Excess Arterial 5.7(H) -2.0 - 2.0 mmol/L [facility] Hemoglobin Arterial 7.6(L) 13.5 - 17.5 g/dL [facility] Oxyhemoglobin Arterial 98.7 95.0 - 100.0 % [facility] Carboxyhemoglobin 0.3 0.0 - 3.0 % [facility] Methemoglobin 0.5 0.0 - 2.0 % [facility] FI O2 Arterial 100.0 % [facility] Blood specimen (specimen) BLOOD SPECIMEN / Unknown 09/09/2017 8:41 AM CDT 09/09/2017 8:45 AM CDT Narrative [facility] - 09/09/2017 8:47 AM CDT FIO2->100 Jason Nash MD LAB - BLOOD GASES OR DERABLES [address] [phone] * (ABNORMAL) GLUCOSE ACCUCHECK (09/09/2017 6:15 AM CDT) Glucose, Fingerstick 133(H) 70-115mg/d L mg/dL [facility] (BEAKER) Comment:Distributor Operator: CARLOS CARTAGENA 09/09/2017 6:15 AM CDT Jason Nash MD LAB - CHEMISTRY [facility] * XR CHEST 1VW PORTABLE (09/09/2017 4:23 AM CDT) Anatomical Region Laterality Modality Chest Other Impressions 09/09/2017 2:02 PM CDT IMPRESSION: There is interval intubation with tip of endotracheal tube terminating at the mid thoracic trachea. A feeding tube extends to the stomach and beyond the [id number]. A left pleural pigtail catheter is unchanged in position. Small right pleural effusion is unchanged. There is left lower lobe atelectasis versus airspace disease with possible persistent pleural effusion. Interstitial opacities have decreased representing pulmonary edema and/or pneumonia. No pneumothorax is seen. The cardiac silhouette is partially obscured. The aorta is atherosclerotic. Report dictated by Rohan Hopkins M.D. (president). Dr. VIBHA Stringer M.D. have personally reviewed and interpreted this examination/study. This report was electronically signed by VIBHA PHELPS M.D. ??on 09/09/2017 2:02 PM . Narrative 09/09/2017 2:02 PM CDT EXAMINATION: PX CHEST 1 VW HISTORY: ett placement COMPARISON: Same-day chest radiograph at 3:41 AM FINDINGS/ Procedure Note Vibha Phelps MD - 09/10/2017 EXAMINATION: PX CHEST 1 VW HISTORY: ett placement COMPARISON: Same-day chest radiograph at 3:41 AM FINDINGS/ IMPRESSION IMPRESSION: There is interval intubation with tip of endotracheal tube terminating atthe mid thoracic trachea. A feeding tube extends to the stomach and beyondthe [id number]. A left pleural pigtail catheter is unchanged inposition. Small right pleural effusion is unchanged. There is left lower lobeatelectasis versus airspace disease with possible persistent pleuraleffusion. Interstitial opacities have decreased representing pulmonaryedema and/or pneumonia. No pneumothorax is seen. The cardiac silhouette is partially obscured. The aorta isatherosclerotic. Report dictated by Rohan Hopkins M.D. (president). IDr. VIBHA M.D. have personally reviewed and interpreted thisexamination/study. This report was electronically signed by VIBHA PHELPS M.D. on 09/09/20172:02 PM . Delphine Waddell DATA TYPIST-RFID STRATEGIST DIAGNOSTIC IMAGI NG ORDERABLES * (ABNORMAL) DIFFERENTIAL MANUAL (09/09/2017 4:22 AM CDT) WBC (corrected for NRBC) 18.9 10? 3 /uL [facility] Total Cell Count 100 [facility] Neutrophils Absolute Manual 14.55(H) 1.60 - 7.00 10? 3 /uL [facility] Comment:(BANDS+SEGS) x WBC = NEUT # (ANC) Lymphocyte Absolute Manual 1.70 0.80 - 2.90 10? 3 /uL [facility] Monocytes Absolute Manual 2.46(H) 0.14 - 0.66 10? 3 /uL [facility] Neutrophil % Manual 77(H) 30 - 60 % [facility] Lymphocyte % Manual 9(L) 20 - 45 % [facility] Monocytes % Manual 13(H) 2 - 10 % [facility] Metamyelocyte % Manual 1(H) 0 % [facility] Platelet Estimate Increased (A) Adequate [facility] Anisocytosis Occasiona l(A) None [facility] Blood specimen (specimen) BLOOD SPECIMEN / Unknown 09/09/2017 4:22 AM CDT 09/09/2017 4:27 AM CDT Jason Nash MD LAB - HEMATOLOGY ORD ERABLES [facility] [address] [phone] * (ABNORMAL) CBC W AUTO DIFFERENTIAL (09/09/2017 4:22 AM CDT) WBC 18.9(H) 3.5 - 10.5 10? 3 /uL [facility] Comment: The WBC count is corrected by the instrument for nRBC's All CBC parameters have been checked. RBC 3.27(L) 4.30 - 5.70 10? 6 /uL [facility] Hemoglobin 9.1(L) 13.5 - 17.5 g/dL [facility] Hematocrit 31.2(L) 39.0 - 50.0 % [facility] MCV 95.4 81.0 - 97.0 fL [facility] MCH 27.8(L) 28.0 - 34.0 pg [facility] MCHC 29.2(L) 32.0 - 36.0 g/dL [facility] Platelet Count 426(H) 150 - 400 10? 3 /uL [facility] RDW-SD 66.4(H) 36.0 - 50.0 fL [facility] RDW-CV 20.4(H) 11.2 - 14.8 % [facility] MPV 12.8 9.3 - 12.8 fL [facility] nRBC Absolute 0.45(H) 0 10? 3 /uL [facility] nRBC Auto 2.4(H) 0 /100 WBC [facility] Blood specimen (specimen) BLOOD SPECIMEN / Unknown 09/09/2017 4:22 AM CDT 09/09/2017 4:27 AM CDT Jason Nash MD LAB - HEMATOLOGY ORD ERABLES Performing Organization Address [facility]/ZIP Co de Phone Number [address] [phone] * (ABNORMAL) PT-INR [facility] (09/09/2017 4:22 AM CDT) PT 15.8(H) 12.1 - 14.8 Seconds [facility] INR 1.3 See Comment [facility] Comment: Suggested therapeutic range for low-intensity coumadin therapy for venous thromboembolism prophylaxis is an INR of 2.0-3.0. ??For high risk patients (Mitral Valve Prosthesis, Atrial Fibrillation, history of TIA/stroke), suggested prophylactic therapeutic range is an INR of 2.5-3.5. Blood specimen (specimen) BLOOD SPECIMEN / Unknown 09/09/2017 4:22 AM CDT 09/09/2017 4:27 AM CDT Narrative [facility] - 09/09/2017 4:43 AM CDT Is patient on Heparin, Argatroban or Dabigatran?->N Jason Nash MD LAB - COAGULATION OR DERABLES Performing Organization Address [facility] Co de Phone Number [address] [phone] * (ABNORMAL) BLOOD [place]ES [place] (09/09/2017 4:22 AM CDT) pH Arterial 7.41 7.35 - 7.45 [facility] pCO2 Arterial 45 35 - 45 mmHg [facility] pO2 Arterial 65(L) 71 - 95 mmHg [facility] HCO3 Arterial 27.4(H) 22.0 - 26.0 mmol/L [facility] TCO2 Arterial 28.8 25.0 - 29.0 mmol/L [facility] Base Excess Arterial 2.4(H) -2.0 - 2.0 mmol/L [facility] Hemoglobin Arterial 8.6(L) 13.5 - 17.5 g/dL [facility] Oxyhemoglobin Arterial 90.7(L) 95.0 - 100.0 % [facility] Carboxyhemoglobin 0.3 0.0 - 3.0 % [facility] Methemoglobin 0.3 0.0 - 2.0 % [facility] FI O2 Arterial 100.0 % [facility] Blood specimen (specimen) BLOOD SPECIMEN / Unknown 09/09/2017 4:22 AM CDT 09/09/2017 4:45 AM CDT Delphine Waddell APRNMIRANDA LAB - BLOOD GASE S ORDERABLES [address] [phone] * (ABNORMAL) BASIC METABOLIC PANEL (CALCIUM TOTAL) (09/09/2017 4:22 AM CDT) BUN 35(H) 7 - 26 mg/dL [facility] Creatinine 0.8 0.6 - 1.2 mg/dL [facility] Sodium 140 136 - 145 mmol/L [facility] Potassium 5.7(H) 3.5 - 4.5 mmol/L [facility] Chloride 104 98 - 107 mmol/L [facility] CO2 24 22 - 29 mmol/L [facility] Glucose 238(H) 70 - 115 mg/dL [facility] Calcium 8.9 8.4 - 10.2 mg/dL [facility] Anion Gap 18 8 - 18 [facility] BUN/Creatinine Ratio 44(H) 7 - 23 [facility] Osmolality Calculated 306(H) 270 - 300 mOsm/kg [facility] eGFR >60 >60 mL/min/1.7 3 m2 [facility] Blood specimen (specimen) BLOOD SPECIMEN / Unknown 09/09/2017 4:22 AM CDT 09/09/2017 4:27 AM CDT Jason Nash MD LAB - CHEMISTRY ROYCE KLINE [address] [phone] * CBC W AUTO DIFFERENTIAL (09/09/2017 4:22 AM CDT) Blood specimen (specimen) BLOOD SPECIMEN / Unknown 09/09/2017 4:22 AM CDT Narrative [facility] - 09/09/2017 5:12 AM CDT The following orders were created for panel order CBC w Differential. Procedure ? Abnormality ? Status ? --------- ? ------ ? CBC WITH DIFFERENTIAL[[id number]] ? Abnormal ?Final result ? MANUAL DIFFERENTIAL[[id number]] ? Abnormal ?Final result ? Please view results for these tests on the individual orders. Jason Nash MD LAB - HEMATOLOGY ORD [facility] Organization Address City/State/[facility] Co de Phone Number [facility] [address] * XR CHEST 1VW PORTABLE (09/09/2017 3:48 AM CDT) Anatomical Region Laterality Modality Chest Other Impressions 09/09/2017 1:59 PM CDT IMPRESSION: A feeding tube extends to the stomach and beyond the obkli-qu-dldf. A left pleural pigtail catheter is unchanged in position. Small right and moderate left pleural effusions have decreased with associated atelectasis and/or airspace disease. Interstitial opacities are seen representing pulmonary edema and/or pneumonia. No pneumothorax is seen. An edge projecting over the left lung apex appears too thick to represent a pleural line and may represent a fold or superimposed structure. The cardiac silhouette is partially obscured. The aorta is atherosclerotic. Report dictated by Rohan Hopkins MD (president). Dr. VIBHA Stringer M.D. have personally reviewed and interpreted this examination/study. This report was electronically signed by VIBHA PHELPS M.D. ??on 09/09/2017 1:59 PM . Narrative 09/09/2017 1:59 PM CDT EXAMINATION: PX CHEST 1 VW 09/08/2017 at 12:18 PM HISTORY: respiratory failure COMPARISON: Chest radiograph dated 09/08/2017 at 12:18 PM. FINDINGS/ Procedure Note Vibha Phelps MD - 09/10/2017 EXAMINATION: PX CHEST 1 VW 09/08/2017 at 12:18 PM HISTORY: respiratory failure COMPARISON: Chest radiograph dated 09/08/2017 at 12:18 PM. FINDINGS/ IMPRESSION IMPRESSION: A feeding tube extends to the stomach and beyond the nwgew-mu-nbth. A leftpleural pigtail catheter is unchanged in position. Small right and moderate left pleural effusions have decreased withassociated atelectasis and/or airspace disease. Interstitial opacities areseen representing pulmonary edema and/or pneumonia. No pneumothorax isseen. An edge projecting over the left lung apex appears too thick to represent a pleural line and may representa fold or superimposed structure. The cardiac silhouette is partiallyobscured. The aorta is atherosclerotic. Report dictated by Rohan Hopkins MD (president). Dr. VIBHA Stringer M.D. have personally reviewed and interpreted thisexamination/study. This report was electronically signed by VIBHA PHELPS M.D. on 09/09/20171:59 PM . Jason Nash MD DIAGNOSTIC IMAGING O RDERABLES * (ABNORMAL) GLUCOSE ACCUCHECK (09/09/2017 12:56 AM CDT) Glucose, Fingerstick 136(H) 70-115mg/d L mg/dL [facility] (BEAKER) Comment:Distributor Operator: CARLOS CARTAGENA 09/09/2017 12:5 6 AM CDT Jason Nash MD LAB - CHEMISTRY ROYCE KLINE Performing Organization Address [facility]/ZIP Co de Phone Number [facility] * (ABNORMAL) GLUCOSE ACCUCHECK (09/08/2017 6:08 PM CDT) Glucose, Fingerstick 130(H) 70-115mg/d L mg/dL [facility] Comment:Distributor Operator: MARCELL ST CROOKS 09/08/2017 6:08 PM CDT Jason Nash MD LAB - CHEMISTRY ROYCE KLINE Performing Organization Address [facility] Co de Phone Number [facility] * (ABNORMAL) GLUCOSE ACCUCHECK (09/08/2017 12:39 PM CDT) Glucose, Fingerstick 120(H) 70-115mg/d L mg/dL [facility] Comment:Distributor Operator: STUARTJACQUI PENNINGTON 09/08/2017 12:3 9 PM CDT Jason Nash MD LAB - CHEMISTRY ROYCE KLINE Performing Organization Address [facility] Co de Phone Number [facility] * LD BODY FLUID ([facility] ONLY) (09/08/2017 12:35 PM CDT) LD Fluid 172 Not Established For Fluids Units/L [facility] Comment:The reference range and other method performance specifications have not been established for this fluid. The test result must be integrated into the clinical context for interpretation. Pleural fluid specimen (specimen) PLEURAL FLUID / Unknown 09/08/2017 12:35 PM CDT 09/08/2017 12:48 PM CDT Jason Nash MD LAB - BODY FLUID RAFFY SNOWDEN Performing Organization Address City/[facility]/ZIP Co de Phone Number [place] [phone] * GLUCOSE BODY FLUID ([facility] ONLY) (09/08/2017 12:35 PM CDT) Glucose Fluid 145 Not Established For Fluids mg/dL [facility] Comment:The reference range and other method performance specifications have not been established for this fluid. The test result must be integrated into the clinical context for interpretation. Pleural fluid specimen (specimen) PLEURAL FLUID / Unknown 09/08/2017 12:35 PM CDT 09/08/2017 12:48 PM CDT Jason Nash MD LAB - BODY FLUID ORD ERABLES Performing Organization Address City/[facility]/ZIP Co de Phone Number [address] [phone] * PROTEIN FLUID (09/08/2017 12:35 PM CDT) Protein Fluid 1.5 Not Established For Fluids g/dL [facility] Comment:The reference range and other method performance specifications have not been established for this fluid. The test result must be integrated into the clinical context for interpretation. Pleural fluid specimen (specimen) PLEURAL FLUID / Unknown 09/08/2017 12:35 PM CDT 09/08/2017 12:48 PM CDT Jason Nash MD LAB - BODY FLUID ORD ERABLES [address] [phone] * (ABNORMAL) CELL COUNT FLUID (09/08/2017 12:35 PM CDT) Color Fluid Bicknell(A) Colorless, Straw [facility] Clarity Fluid Slighty Cloudy(A) Clear [facility] Volume Fluid 1.0 mL [facility] WBC Fluid 161 Reference Range Not Established /uL [facility] RBC Fluid 11,000 Reference Range Not Established /uL [facility] Differential Manual Differential to follow. [facility] Pleural fluid specimen (specimen) PLEURAL FLUID / Unknown 09/08/2017 12:35 PM CDT 09/08/2017 12:48 PM CDT Narrative [facility] - 09/08/2017 1:12 PM CDT No established reference ranges for WBC and RBC body fluid count. Jason Nash MD LAB - BODY FLUID ORD ERABLES Performing Organization Address [facility] Co de Phone Number [address] [phone] * DIFFERENTIAL MANUAL FLUID (09/08/2017 12:35 PM CDT) Segs % Fluid 60 % [facility] Lymphocytes % Fluid 37 % [facility] Monocytes % Fluid 3 % [facility] Pleural fluid specimen (specimen) PLEURAL FLUID / Unknown 09/08/2017 12:35 PM CDT 09/08/2017 12:48 PM CDT Narrative [facility] - 09/08/2017 2:08 PM CDT No reference ranges established for body fluid differential. Jason Nash MD LAB - BODY FLUID ORD ERABLES Performing Organization Address [facility] [place] [address], [facility] [phone] * CELL COUNT W DIFFERENTIAL FLUID (09/08/2017 12:35 PM CDT) Pleural fluid specimen (specimen) PLEURAL FLUID / Unknown 09/08/2017 12:35 PM CDT [facility] - 09/08/2017 2:08 PM CDT The following orders were created for panel order Body fluid cell count with diff. Procedure ? Abnormality ? Status ? --------- ? ------ ? Body fluid cell count wit...[[id number]] ??Abnormal ?Final result ? MANUAL DIFFERENTIAL FLUID[[id number]] ? Final result ? Please view results for these tests on the individual orders. Jason Nash MD LAB - BODY FLUID ORD ERABLES Performing Organization Address [facility] de Phone Number [facility] [address] * PH FLUID (09/08/2017 12:33 PM CDT) pH Fluid 7.610 Not Established For Fluids [facility] Comment:The reference range and other method performance specifications have not been established for this fluid. The test result must be integrated into the clinical context for interpretation. Fluid specimen (specimen) PLEURAL FLUID / Unknown 09/08/2017 12:33 PM CDT 09/08/2017 12:47 PM CDT Jason Nash MD LAB - BODY FLUID ORD JANUSZBLES Performing Organization Address [facility] de Phone Number [facility] [address] [phone] * CULTURE AEROBIC (09/08/2017 12:32 PM CDT) Culture Aerobic No Growth [facility] Gram Stain light Polymorphonuclear Cells [facility] Gram Stain No Organism Seen [facility] Pleural fluid specimen (specimen) PLEURAL FLUID / Unknown 09/08/2017 12:32 PM CDT 09/08/2017 12:48 PM CDT Narrative [facility] - 09/15/2017 11:53 AM CDT Specimen Type->Pleural Fluid Resulting Lab: ?? [facility] [address] [place] [address] PH: [phone] Jason Nash MD LAB - MICROBIOLOGY O RDERABLES [address] [phone] * XR CHEST 1VW PORTABLE (09/08/2017 12:23 PM CDT) Anatomical Region Laterality Modality Chest Other Impressions 09/09/2017 8:58 AM CDT IMPRESSION: A feeding tube extends to the stomach and beyond the nmskm-ou-qyrr. A tube projecting over the mediastinum to the right of the trachea probably represents the external end of the feeding tube. A pleural pigtail catheter has been placed in the left lower hemithorax. A right small pleural effusion has increased with associated atelectasis and/or airspace disease. A moderate left pleural effusion remains unchanged with associated basal atelectasis and/or airspace disease. Interstitial opacities are present. The findings may represent pulmonary edema or pneumonia. No pneumothorax is seen. The cardiomediastinal silhouette is partially obscured. Dictated by mOi Silverio MD (president). I, Dr. SILAS NGUYỄN MD have personally reviewed and interpreted this examination/study. This report was electronically signed by SILAS NGUYỄN MD ??on 09/09/2017 8:58 AM . Narrative 09/09/2017 8:58 AM CDT EXAMINATION: PX CHEST 1 VW 09/08/2017 at 12:18 PM HISTORY: s/p pigtail placement COMPARISON: Chest radiograph dated 09/08/2017 at 5:47 AM. FINDINGS/ Procedure Note Silas Nguyễn MD - 09/10/2017 EXAMINATION: PX CHEST 1 VW 09/08/2017 at 12:18 PM HISTORY: s/p pigtail placement COMPARISON: Chest radiograph dated 09/08/2017 at 5:47 AM. FINDINGS/ IMPRESSION IMPRESSION: A feeding tube extends to the stomach and beyond the vtpne-dh-alno. A tubeprojecting over the mediastinum to the right of the trachea probablyrepresents the external end of the feeding tube. A pleural pigtailcatheter has been placed in the left lower hemithorax. A right small pleural effusion has increased with associated atelectasisand/or airspace disease. A moderate left pleural effusion remainsunchanged with associated basal atelectasis and/or airspace disease.Interstitial opacities are present. The findings may represent pulmonary edema or pneumonia. No pneumothorax isseen. The cardiomediastinal silhouette is partially obscured. Dictated by Omi Silverio MD (president). I, Dr. SILAS NGUYỄN MD have personally reviewed and interpreted thisexamination/study. This report was electronically signed by SILAS NGUYỄN MD on 09/09/20178:58 AM . Jason Nash MD DIAGNOSTIC IMAGING O RDERABLES * XR CHEST 1VW PORTABLE (09/08/2017 5:52 AM CDT) Anatomical Region Laterality Modality Chest Other Impressions 09/08/2017 12:19 PM CDT IMPRESSION: Right internal jugular approach central venous catheter and endotracheal tube have been removed. A feeding tube follows the course of the esophagus and tip is off the kicii-ev-raih. Small right and moderate to large left pleural effusions with associated atelectasis and/or airspace disease is increase on the left. There are bilateral interstitial opacities likely representing pulmonary edema or pneumonia. No pneumothorax is identified. The cardiac silhouette is partially obscured. Report dictated by Rohan Hopkins M.D. (president). I, Dr. VIBHA PHELPS M.D. have personally reviewed and interpreted this examination/study. This report was electronically signed by VIBHA PHELPS M.D. ??on 09/08/2017 12:19 PM . Narrative 09/08/2017 12:19 PM CDT EXAMINATION: PX CHEST 1 VW HISTORY: pt. SOB; left lung sounds more diminished than right COMPARISON: 09/08/1999 FINDINGS/ Procedure Note Vibha Phelps MD - 09/10/2017 EXAMINATION: PX CHEST 1 VW HISTORY: pt. SOB; left lung sounds more diminished than right COMPARISON: 09/08/1999 FINDINGS/ IMPRESSION IMPRESSION: Right internal jugular approach central venous catheter and endotrachealtube have been removed. A feeding tube follows the course of the esophagusand tip is off the sdzjn-mj-uoxk. Small right and moderate to large left pleural effusions with associatedatelectasis and/or airspace disease is increase on the left. There arebilateral interstitial opacities likely representing pulmonary edema orpneumonia. No pneumothorax is identified. The cardiac silhouette is partially obscured. Report dictated by Rohan Hopkins M.D. (president). I, Dr. VIBHA PHELPS M.D. have personally reviewed and interpreted thisexamination/study. This report was electronically signed by VIBHA PHELPS M.D. on 09/08/201712:19 PM . Jason Nash MD DIAGNOSTIC IMAGING O RDERABLES * (ABNORMAL) GLUCOSE ACCUCHECK (09/08/2017 5:37 AM CDT) Glucose, Fingerstick 149(H) 70-115mg/d L mg/dL [facility] RALS (BEAKER) Comment:Distributor Operator: WESTON COSTA 09/08/2017 5:37 AM CDT Jason Nash MD LAB - CHEMISTRY ROYCE KLINE Performing Organization Address [facility] Co de Phone Number [facility] RALS (BEAKER) * (ABNORMAL) GLUCOSE ACCUCHECK (09/08/2017 12:27 AM CDT) Glucose, Fingerstick 143(H) 70-115mg/d L mg/dL [facility] RALS (BEAKER) Comment:Distributor Operator: WESTON COSTA 09/08/2017 12:2 7 AM CDT Jason Nash MD LAB - CHEMISTRY ORDMarj KLINE Performing Organization Address [facility]/State/ZIP Co de Phone Number [facility] RALS (BEAKER) * (ABNORMAL) GLUCOSE ACCUCHECK (09/07/2017 4:22 PM CDT) Glucose, Fingerstick 150(H) 70-115mg/d L mg/dL [facility] RALS (BEAKER) Comment:Distributor Operator: MARCELLDEVEN SOLOGERMANIA 09/07/2017 4:22 PM CDT Jason Nash MD LAB - CHEMISTRY RAFFYMarj RAISA [facility] Organization Address City/State/ZIP Co de Phone Number AMINA HOOD) * CT CHEST WO CONTRAST (09/07/2017 1:52 PM CDT) Anatomical Region Laterality Modality Chest Other Impressions [...] T6-7, unchanged. Dictated by Keaton Gómez MD (president). I, Dr. Jason NIAK M.D. have personally reviewed and interpreted this [...] T6-7, unchanged. Dictated by Keaton Gómez MD (president). IDr. Jason M.D. have personally reviewed and interpreted thisexamination/study. This report was electronically signed by Jason NAIK M.D. on09/07/2017 3:14 PM . Jason Nash MD CT ORDERABLES * (ABNORMAL) GLUCOSE ACCUCHECK (09/07/2017 11:43 AM CDT) Glucose, Fingerstick 140(H) 70-115mg/d L mg/dL [facility] ([facility]) Comment:Distributor Operator: MARCELL RIVERA 09/07/2017 11:4 3 AM CDT Jason Nash MD LAB - CHEMISTRY ROYCE KLINE [facility] ARI ([place]) * (ABNORMAL) GLUCOSE ACCUCHECK (09/07/2017 5:29 AM CDT) Glucose, Fingerstick 171(H) 70-115mg/d L mg/dL [facility] RALVikki ([place]) Comment:Distributor Operator: FAISAL MAO 09/07/2017 5:29 AM CDT Jason Nash MD LAB - CHEMISTRY ROYCE KLINE Performing Organization Address [facility] Co de Phone Number Jeannette CHAPMAN ([place]) * XR CHEST 1VW PORTABLE (09/07/2017 5:04 AM CDT) Anatomical Region Laterality Modality Chest Other Impressions 09/07/2017 12:35 PM CDT IMPRESSION: Right internal jugular approach central venous catheters superimposes the superior vena cava. Endotracheal tube terminates at the mid thoracic trachea. A gastric tube has been removed and a feeding tube follows the course of the esophagus and tip is off the oqals-wu-rixv. Small right and moderate left pleural effusions with associated atelectasis and/or airspace disease is unchanged. There are bilateral interstitial and airspace opacities likely representing pulmonary edema or pneumonia. No pneumothorax is identified. The cardiac silhouette is partly obscured. Report dictated by Rohan Hopkins M.D. (president). I, Dr. SULLY RUANO M.D. have personally reviewed and interpreted this examination/study. This report was electronically signed by SULLY RUANO M.D. ??on 09/07/2017 12:35 PM . Narrative 09/07/2017 12:35 PM CDT EXAMINATION: PX CHEST 1 VW HISTORY: LL atelectasis COMPARISON: 09/06/2017 2:44 PM FINDINGS/ Procedure Note Sully Ruano MD - 09/10/2017 EXAMINATION: PX CHEST 1 VW HISTORY: LL atelectasis COMPARISON: 09/06/2017 2:44 PM FINDINGS/ IMPRESSION IMPRESSION: Right internal jugular approach central venous catheters superimposes thesuperior vena cava. Endotracheal tube terminates at the mid thoracictrachea. A gastric tube has been removed and a feeding tube follows thecourse of the esophagus and tip is off the kifzq-in-rzlb. Small right and moderate left pleural effusions with associatedatelectasis and/or airspace disease is unchanged. There are bilateralinterstitial and airspace opacities likely representing pulmonary edema orpneumonia. No pneumothorax is identified. The cardiac silhouette is partly obscured. Report dictated by Rohan Hopkins M.D. (president). I, Dr. SULLY RUANO M.D. have personally reviewed and interpretedthis examination/study. This report was electronically signed by SULLY RUANO M.D. on09/07/2017 12:35 PM . Jason Nash MD DIAGNOSTIC IMAGING O RDERABLES * PTT [facility] (09/07/2017 4:28 AM CDT) APTT 32.8 23.0 - 38.4 Seconds [facility] Comment:Suggested therapeuti c range for full dose I.V. heparin therapy for venous thromboembolism is 66.0-91.0 seconds. Blood specimen (specimen) BLOOD SPECIMEN / Unknown 09/07/2017 4:28 AM CDT 09/07/2017 4:35 AM CDT Narrative [facility] - 09/07/2017 4:59 AM CDT Please ensure that the aPTT specimen is received in the clinical lab within 1 hour of collection if it is used for therapeutic heparin monitoring. Processing of heparinized specimens older than 1 hour may result in inaccurate test results. Is patient on Heparin, Argatroban or Dabigatran?->N Jason Nash MD LAB - COAGULATION OR DERABLES [address] [phone] * (ABNORMAL) PT-INR [facility] (09/07/2017 4:28 AM CDT) PT 18.8(H) 12.1 - 14.8 Seconds [facility] INR 1.6 See Comment [facility] Comment: Suggested therapeutic range for low-intensity coumadin therapy for venous thromboembolism prophylaxis is an INR of 2.0-3.0. ??For high risk patients (Mitral Valve Prosthesis, Atrial Fibrillation, history of TIA/stroke), suggested prophylactic therapeutic range is an INR of 2.5-3.5. Blood specimen (specimen) BLOOD SPECIMEN / Unknown 09/07/2017 4:28 AM CDT 09/07/2017 4:35 AM CDT [facility] - 09/07/2017 4:58 AM CDT Is patient on Heparin, Argatroban or Dabigatran?->N Jason Nash MD LAB - COAGULATION OR DERABLES Performing Organization Address City/State/[facility] [place] [address], [facility] [phone] * PROCALCITONIN LEVEL (09/07/2017 4:28 AM CDT) Procalcitonin 0.47 [facility] Blood specimen (specimen) BLOOD SPECIMEN / Unknown 09/07/2017 4:28 AM CDT 09/07/2017 4:35 AM CDT [facility] - 09/07/2017 5:53 AM CDT The change [...] Change in Procalcitonin Calculator is available at [email or web address] ?? If clinical picture has not improved and PCT remains high, reevaluate and consider treatment failure or other causes. Jason Nash MD LAB - CHEMISTRY ROYCE KLINE [address] [phone] * (ABNORMAL) BASIC METABOLIC PANEL (CALCIUM TOTAL) (09/07/2017 4:28 AM CDT) BUN 24 7 - 26 mg/dL [facility] Creatinine 0.7 0.6 - 1.2 mg/dL [facility] Sodium 140 136 - 145 mmol/L [facility] Potassium 4.6(H) 3.5 - 4.5 mmol/L [facility] Chloride 106 98 - 107 mmol/L [facility] CO2 25 22 - 29 mmol/L [facility] Glucose 156(H) 70 - 115 mg/dL [facility] Calcium 8.4 8.4 - 10.2 mg/dL [facility] Anion Gap 14 8 - 18 [facility] BUN/Creatinine Ratio 34(H) 7 - 23 [facility] Osmolality Calculated 297 270 - 300 mOsm/kg [facility] eGFR >60 >60 mL/min/1.7 3 m2 [facility] Blood specimen (specimen) BLOOD SPECIMEN / Unknown 09/07/2017 4:28 AM CDT 09/07/2017 4:35 AM CDT Jason Nash MD LAB - CHEMISTRY ROYCE KLINE Performing Organization Address [facility]/ZIP Co de Phone Number [address] [phone] * (ABNORMAL) MAGNESIUM BLOOD (09/07/2017 4:28 AM CDT) Magnesium 1.4(L) 1.6 - 2.6 mg/dL [facility] Blood specimen (specimen) BLOOD SPECIMEN / Unknown 09/07/2017 4:28 AM CDT 09/07/2017 4:35 AM CDT Jason Nash MD LAB - CHEMISTRY ROYCE KLINE Performing Organization Address [facility] Co de Phone Number [address] [phone] * PHOSPHORUS BLOOD (09/07/2017 4:28 AM CDT) Phosphorus 2.9 2.3 - 4.7 mg/dL [facility] Blood specimen (specimen) BLOOD SPECIMEN / Unknown 09/07/2017 4:28 AM CDT 09/07/2017 4:35 AM CDT Jason Nash MD LAB - CHEMISTRY ROYCE KLINE Performing Organization Address [facility]/ZIP Co de Phone Number [address] [phone] * (ABNORMAL) CBC W AUTO DIFFERENTIAL (09/07/2017 4:28 AM CDT) WBC 10.1 3.5 - 10.5 10? 3 /uL [facility] Comment:Results are confirme d by repeat analysis. RBC 2.72(L) 4.30 - 5.70 10? 6 /uL [facility] Hemoglobin 7.4(L) 13.5 - 17.5 g/dL [facility] Hematocrit 25.1(L) 39.0 - 50.0 % [facility] MCV 92.3 81.0 - 97.0 fL [facility] MCH 27.2(L) 28.0 - 34.0 pg [facility] MCHC 29.5(L) 32.0 - 36.0 g/dL [facility] Platelet Count 313 150 - 400 10? 3 /uL [facility] RDW-SD 61.9(H) 36.0 - 50.0 fL [facility] RDW-CV 19.0(H) 11.2 - 14.8 % [facility] MPV 12.0 9.3 - 12.8 fL [facility] nRBC Absolute 0.03(H) 0 10? 3 /uL [facility] nRBC Auto 0.3(H) 0 /100 WBC [facility] Neutrophils % 90.7(H) 35.0 - 70.0 % [facility] Lymphocytes % 4.1(L) 19.7 - 55.1 % [facility] Monocytes % 5.0 3.0 - 15.0 % [facility] Eosinophils % 0.0 0.0 - 6.0 % [facility] Basophil % 0.2 0.0 - 1.5 % [facility] Neutrophils Absolute 9.1(H) 1.6 - 7.0 10? 3 /uL [facility] Lymphocyte Absolute 0.4(L) 0.8 - 2.9 10? 3 /uL [facility] Monocytes Absolute 0.50 0.14 - 0.66 10? 3 /uL [facility] Eosinophils Absolute 0.00 0.00 - 0.22 10? 3 /uL [facility] Basophils Absolute 0.02 0.00 - 0.06 10? 3 /uL [facility] Immature Granulocytes % 1.4(H) 0.0 - 1.0 % [facility] Blood specimen (specimen) BLOOD SPECIMEN / Unknown 09/07/2017 4:28 AM CDT 09/07/2017 4:35 AM CDT Jason Nash MD LAB - HEMATOLOGY ORD ERABLES [facility] [address] [place] [address] * CBC W AUTO DIFFERENTIAL (09/07/2017 4:28 AM CDT) Blood specimen (specimen) BLOOD SPECIMEN / Unknown 09/07/2017 4:28 AM CDT Narrative [facility] - 09/07/2017 4:43 AM CDT The following orders were created for panel order CBC w Differential. Procedure ? Abnormality ? Status ? --------- ? ------ ? CBC WITH DIFFERENTIAL[[id number]] ? Abnormal ?Final result ? Please view results for these tests on the individual orders. Jason Nash MD LAB - HEMATOLOGY RAFFY SNOWDEN Performing Organization Address [facility] de Phone Number [facility] [address] * (ABNORMAL) GLUCOSE ACCUCHECK (09/07/2017 12:08 AM CDT) Glucose, Fingerstick 143(H) 70-115mg/d L mg/dL [facility] [place]) Comment:Distributor Operator: FAISAL MAO 09/07/2017 12:0 8 AM CDT Jason Nash MD LAB - CHEMISTRY ROYCE KLINE Performing Organization Address [facility] de Phone Number [facility] [place]) * EKG 12-LEAD (09/07/2017 12:00 AM CDT) EKG [facility] RADIOLOGY Comment: Exam Date/Time: ?? Sep 07 2017 04:55:15 Test Reason : Evaluate Qtc Blood Pressure : / mmHG Vent. Rate : 103 BPM ? Atrial Rate : 094 BPM ?? P-R Int : 000 ms ?QRS Dur : 084 ms ?QT Int : 306 ms ? P-R-T Axes : 000 036 180 degrees ?? QTc Int : 400 ms Atrial fibrillation with rapid ventricular response Low voltage QRS Septal infarct , age undetermined Abnormal ECG When compared with ECG of 06-SEP-2017 11:43, NSC noted No lead misplacement noted Reconfirmed by Mauri ROY SCOTT ([id number]), visual effects editor Robi Pavon ([id number]) on 09/10/2017 6:07:09 PM Also confirmed by Mauri ROY SCOTT ([id number]), visual effects editor Robi Pavon ([id number]) ??on 09/10/2017 6:07:41 PM Referred By: REFERRING NO ? Confirmed By:FREDA ROY M.D. 09/07/2017 Rebecca Melendez [facility] ECG ORDERABLES [facility]OLOG[facility] * XR ABDOMEN KUB PORTABLE (09/06/2017 11:06 PM CDT) Anatomical Region Laterality Modality Other Impressions 09/07/2017 12:20 PM CDT IMPRESSION: A feeding tube terminates at the distal stomach/ pylorus. Findings of several dilated loops of small and large bowel is new compared to the previous study, incompletely evaluated on this study. Preliminary results were discussed with Dr. Costello by Dr. Hopkins on 09/07/2017 9:08 AM. Report dictated by Rohan Hopkins MD (president). I, Dr. SULLY RUANO M.D. have personally [...] AM. Report dictated by Rohan Hopkins MD (president). I, Dr. SULLY RUANO M.D. have personally reviewed and interpretedthis examination/study. This report was electronically signed by SULLY RUANO M.D. on09/07/2017 12:20 PM . Rebecca Maxwell [place] DATA TYPIST-RFID STRATEGIST DIAGNOSTIC IMAGIN G ORDERABLES * (ABNORMAL) BLOOD GASES ART COMPLETE [facility] OR (09/06/2017 4:21 PM CDT) pH Arterial 7.38 7.35 - 7.45 [facility] pCO2 Arterial 47(H) 35 - 45 mmHg [facility] pO2 Arterial 169(H) 71 - 95 mmHg [facility] HCO3 Arterial 27.0(H) 22.0 - 26.0 mmol/L [facility] TCO2 Arterial 28.4 25.0 - 29.0 mmol/L [facility] Base Excess Arterial 1.5 -2.0 - 2.0 mmol/L [facility] Hemoglobin Arterial 8.6(L) 13.5 - 17.5 g/dL [facility] Oxyhemoglobin Arterial 97.9 95.0 - 100.0 % [facility] Carboxyhemoglobin 0.3 0.0 - 3.0 % [facility] Methemoglobin 0.3 0.0 - 2.0 % [facility] FI O2 Arterial 50.0 % [facility] Ionized Calcium Whole Blood 1.14 mmol/L [facility] Adjusted Ionized Calcium 1.13(L) 1.19 - 1.34 mmol/L [facility] Sodium Whole Blood 140 135 - 145 mmol/L [facility] Potassium Whole Blood 4.2 3.5 - 5.5 mmol/L [facility] Chloride Whole Blood 109 101 - 111 mmol/L [facility] Glucose Whole Blood 134(H) 70 - 110 mg/dL [facility] Lactic Acid Whole Blood 2.5 0.5 - 3.4 mmol/L [facility] Blood specimen (specimen) 09/06/2017 4:21 PM CDT 09/06/2017 4:30 PM CDT Jason Nash MD LAB - BLOOD GASES OR DERABLES [address] [phone] * (ABNORMAL) GLUCOSE ACCUCHECK (09/06/2017 4:19 PM CDT) Glucose, Fingerstick 128(H) 70-115mg/d L mg/dL [facility] RALS ([place]) Comment:Distributor Operator: STONE ALI 09/06/2017 4:19 PM CDT Jason Nash MD LAB - CHEMISTRY ORDE RABLES Performing Organization Address [facility] Co de Phone Number [facility] ARI ([place]) * XR CHEST 1VW PORTABLE (09/06/2017 2:48 PM CDT) Anatomical Region Laterality Modality Chest Other Impressions 09/06/2017 4:13 PM CDT IMPRESSION: Right internal jugular approach central venous catheters superimposes the superior vena cava. Endotracheal tube terminates at the mid thoracic trachea. A gastric tube and a feeding tube follows the course of the esophagus and tips are off the [id number]. There is a moderate left pleural effusion, intervally decreased. There is a small right pleural effusion, unchanged. There are bilateral interstitial and airspace opacities likely representing pulmonary edema or pneumonia. No pneumothorax is identified. The cardiac silhouette is partly obscured. Report dictated by Rohan Hopkins M.D. (president). I, Dr. SILAS NGUYỄN MD have personally reviewed and interpreted this examination/study. This report was electronically signed by SILAS NGUYỄN MD ??on 09/06/2017 4:13 PM . Narrative 09/06/2017 4:13 PM CDT EXAMINATION: PX CHEST 1 VW HISTORY: s/p bronch COMPARISON: Same-day chest radiograph at 7:46 AM FINDINGS/ Procedure Note Silas Nguyễn MD - 09/10/2017 EXAMINATION: PX CHEST 1 VW HISTORY: s/p bronch COMPARISON: Same-day chest radiograph at 7:46 AM FINDINGS/ IMPRESSION IMPRESSION: Right internal jugular approach central venous catheters superimposes thesuperior vena cava. Endotracheal tube terminates at the mid thoracictrachea. A gastric tube and a feeding tube follows the course of theesophagus and tips are off the [id number]. There is a moderate left pleural effusion, intervally decreased. There lisa small right pleural effusion, unchanged. There are bilateralinterstitial and airspace opacities likely representing pulmonary edema orpneumonia. No pneumothorax is identified. The cardiac silhouette is partly obscured. Report dictated by Rohan Hopkins M.D. (president). I, Dr. SILAS NGUYỄN MD have personally reviewed and interpreted thisexamination/study. This report was electronically signed by SILAS NGUYỄN MD on 09/06/20174:13 PM . Jason Nash MD DIAGNOSTIC IMAGING O RDERABLES * CULTURE LEGIONELLA (09/06/2017 2:05 PM CDT) Culture Legionella No Growth Legionella 1 week. [facility] Bronchial Washings SPECIMEN FROM LUNG OBTAINED BY BRONCHIAL WASHING PROCEDURE / Unknown 09/06/2017 2:05 PM CDT 09/06/2017 2:23 PM CDT Narrative [facility] - 09/13/2017 8:55 AM CDT Specimen Type->Bronchial Washings Resulting Lab: ?? [facility] [address] [place] [address] PH: [phone] Jason Nash MD LAB - MICROBIOLOGY O RDERABLES [facility] [address] [place], [place] [address] [phone] * CULTURE AEROBIC (09/06/2017 2:05 PM CDT) Culture Aerobic No Growth [facility] Gram Stain Moderate White Blood Cells [facility] Gram Stain No Organism Seen [facility] Bronchial Washings SPECIMEN FROM LUNG OBTAINED BY BRONCHIAL WASHING PROCEDURE / Unknown 09/06/2017 2:05 PM CDT 09/06/2017 2:23 PM CDT [facility] - 09/08/2017 11:09 AM CDT Specimen Type->Bronchial Washings Resulting Lab: ?? [facility] [address] [place] [address] PH: [phone] Jason Nash MD LAB - MICROBIOLOGY O RDERABLES [address] [phone] * CULTURE BLOOD (09/06/2017 12:35 PM CDT) Culture Blood No Growth at 5 days [facility] Blood specimen (specimen) DEVICE / Unknown 09/06/2017 12:35 PM CDT 09/06/2017 12:44 PM CDT [facility] - 09/11/2017 4:45 PM CDT Resulting Lab: ?? [facility] [address] [place] [address] PH: [phone] Bandar Mansfield MD LAB - MICROBIOLOGY ORDERABLES [address] [phone] * CULTURE BLOOD (09/06/2017 12:11 PM CDT) Culture Blood No Growth at 5 days [facility] Blood specimen (specimen) (Blood Line - Arterial) 09/06/2017 12:11 PM CDT 09/06/2017 12:16 PM CDT [facility] - 09/11/2017 4:30 PM CDT Draw 15 minutes after Culture 1 from a different site Resulting Lab: ?? [facility] [address] [place] [address] PH: [phone] Bandar Mansfield MD LAB - MICROBIOLOGY ORDERABLES [facility] [address] [place] [address], [facility] [phone] * (ABNORMAL) BLOOD GASES ART COMPLETE [facility] OR (09/06/2017 12:11 PM CDT) pH Arterial 7.28(L) 7.35 - 7.45 [facility] pCO2 Arterial 55(H) 35 - 45 mmHg [facility] pO2 Arterial 152(H) 71 - 95 mmHg [facility] HCO3 Arterial 25.0 22.0 - 26.0 mmol/L [facility] TCO2 Arterial 26.7 25.0 - 29.0 mmol/L [facility] Base Excess Arterial -2.0 -2.0 - 2.0 mmol/L [facility] Hemoglobin Arterial 8.6(L) 13.5 - 17.5 g/dL [facility] Oxyhemoglobin Arterial 97.6 95.0 - 100.0 % [facility] Carboxyhemoglobin 0.3 0.0 - 3.0 % [facility] Methemoglobin 0.6 0.0 - 2.0 % [facility] FI O2 Arterial 100.0 % [facility] Ionized Calcium Whole Blood 1.18 mmol/L [facility] Adjusted Ionized Calcium 1.12(L) 1.19 - 1.34 mmol/L [facility] Sodium Whole Blood 142 135 - 145 mmol/L [facility] Potassium Whole Blood 3.8 3.5 - 5.5 mmol/L [facility] Chloride Whole Blood 106 101 - 111 mmol/L [facility] Glucose Whole Blood 166(H) 70 - 110 mg/dL [facility] Lactic Acid Whole Blood 2.8(HH) 0.5 - 2.0 mmol/L [facility] Comment:Critical value(s) bailey ve been verified and called to and read back by Emma Ledezma at 1223 on 09/06/17. Blood specimen (specimen) 09/06/2017 12:11 PM CDT 09/06/2017 12:16 PM CDT Bandar Mansfield MD LAB - BLOOD GASES ORDERABLES Performing Organization Address [facility] Co de Phone Number [address] [phone] * (ABNORMAL) DIGOXIN LEVEL (09/06/2017 12:02 PM CDT) Digoxin <0.3(L) 0.8 - 2.0 ng/mL [facility] Comment: The windows application administrator of Digoxin [employer] has stated that no immunoassay technique is suitable for quantitating digoxin in plasma/serum from patients on antibody fragment therapy. ? Blood specimen (specimen) BLOOD SPECIMEN / Unknown 09/06/2017 12:02 PM CDT 09/06/2017 12:08 PM CDT Bandar Mansfield MD LAB - CHEMISTRY OR DERABLES Performing Organization Address [facility] [place] [address], [facility] [phone] * (ABNORMAL) PTT [facility] (09/06/2017 11:57 AM CDT) APTT 46.4(H) 23.0 - 38.4 Seconds [facility] Comment:Suggested therapeuti c range for full dose I.V. heparin therapy for venous thromboembolism is 66.0-91.0 seconds. Blood specimen (specimen) BLOOD SPECIMEN / Unknown 09/06/2017 11:57 AM CDT 09/06/2017 12:08 PM CDT Narrative [facility] - 09/06/2017 12:21 PM CDT Please ensure that the aPTT specimen is received in the clinical lab within 1 hour of collection if it is used for therapeutic heparin monitoring. Processing of heparinized specimens older than 1 hour may result in inaccurate test results. Is patient on Heparin, Argatroban or Dabigatran?->N Bandar Mansfield MD LAB - COAGULATION ORDERABLES [address] [phone] * (ABNORMAL) PT-INR [facility] (09/06/2017 11:57 AM CDT) Pathologist [facility] PT 24.5(H) 12.1 - 14.8 Seconds [facility] INR 2.2 See Comment [facility] Comment: Suggested therapeutic range for low-intensity coumadin therapy for venous thromboembolism prophylaxis is an INR of 2.0-3.0. ??For high risk patients (Mitral Valve Prosthesis, Atrial Fibrillation, history of TIA/stroke), suggested prophylactic therapeutic range is an INR of 2.5-3.5. Blood specimen (specimen) BLOOD SPECIMEN / Unknown 09/06/2017 11:57 AM CDT 09/06/2017 12:08 PM CDT Narrative [facility] - 09/06/2017 12:20 PM CDT Is patient on Heparin, Argatroban or Dabigatran?->N Bandar Mansfield MD LAB - COAGULATION ORDERABLES Performing Organization Address City/[facility]/ZIP Co de Phone Number [address] [phone] * TROPONIN I (09/06/2017 11:57 AM CDT) [facility] Troponin I 0.027 <0.032 ng/mL [facility] Blood specimen (specimen) BLOOD SPECIMEN / Unknown 09/06/2017 11:57 AM CDT 09/06/2017 12:08 PM CDT Bandar Mansfield MD LAB - CHEMISTRY OR DERABLES [address] [phone] * (ABNORMAL) COMPREHENSIVE METABOLIC PANEL (09/06/2017 11:57 AM CDT) Pathologist [facility] BUN 21 7 - 26 mg/dL [facility] Creatinine 0.7 0.6 - 1.2 mg/dL [facility] Sodium 143 136 - 145 mmol/L [facility] Potassium 3.8 3.5 - 4.5 mmol/L [facility] Chloride 108(H) 98 - 107 mmol/L [facility] CO2 20(L) 22 - 29 mmol/L [facility] Glucose 170(H) 70 - 115 mg/dL [facility] Calcium 8.5 8.4 - 10.2 mg/dL [facility] Protein Total 6.2 6.0 - 8.3 g/dL [facility] Albumin 1.8(L) 3.4 - 5.0 g/dL [facility] Bilirubin Total 0.3 0.2 - 1.2 mg/dL [facility] Alkaline Phosphatase 204(H) 40 - 150 Units/L [facility] ALT 10 0 - 55 Units/L [facility] AST 21 5 - 34 Units/L [facility] Anion Gap 19(H) 8 - 18 [facility] BUN/Creatinine Ratio 30(H) 7 - 23 [facility] Osmolality Calculated 303(H) 270 - 300 mOsm/kg [facility] Albumin/Globulin Ratio 0.4(L) 1.1 - 2.3 [facility] eGFR >60 >60 mL/min/1.7 3 m2 [facility] Blood specimen (specimen) BLOOD SPECIMEN / Unknown 09/06/2017 11:57 AM CDT 09/06/2017 12:08 PM CDT Bandar Mansfield MD LAB - CHEMISTRY OR DERABLES Performing Organization Address City/State/[facility] Co de Phone Number [address] [phone] * (ABNORMAL) CBC W AUTO DIFFERENTIAL (09/06/2017 11:57 AM CDT) WBC 27.8(H) 3.5 - 10.5 10? 3 /uL [facility] Comment:All CBC parameters h ave been checked. RBC 2.99(L) 4.30 - 5.70 10? 6 /uL [facility] Hemoglobin 8.2(L) 13.5 - 17.5 g/dL [facility] Hematocrit 28.5(L) 39.0 - 50.0 % [facility] MCV 95.3 81.0 - 97.0 fL [facility] MCH 27.4(L) 28.0 - 34.0 pg [facility] MCHC 28.8(L) 32.0 - 36.0 g/dL [facility] Platelet Count 432(H) 150 - 400 10? 3 /uL [facility] RDW-SD 64.7(H) 36.0 - 50.0 fL [facility] RDW-CV 19.1(H) 11.2 - 14.8 % [facility] MPV 12.1 9.3 - 12.8 fL [facility] nRBC Absolute 0.09(H) 0 10? 3 /uL [facility] nRBC Auto 0.3(H) 0 /100 WBC [facility] Neutrophils % 92.0(H) 35.0 - 70.0 % [facility] Lymphocytes % 5.2(L) 19.7 - 55.1 % [facility] Monocytes % 2.6(L) 3.0 - 15.0 % [facility] Eosinophils % 0.1 0.0 - 6.0 % [facility] Basophil % 0.1 0.0 - 1.5 % [facility] Neutrophils Absolute 25.6(H) 1.6 - 7.0 10? 3 /uL [facility] Lymphocyte Absolute 1.5 0.8 - 2.9 10? 3 /uL [facility] Monocytes Absolute 0.71(H) 0.14 - 0.66 10? 3 /uL [facility] Eosinophils Absolute 0.03 0.00 - 0.22 10? 3 /uL [facility] Basophils Absolute 0.04 0.00 - 0.06 10? 3 /uL [facility] Immature Granulocytes % 3.0(H) 0.0 - 1.0 % [facility] Blood specimen (specimen) BLOOD SPECIMEN / Unknown 09/06/2017 11:57 AM CDT 09/06/2017 12:08 PM CDT Bandar Mansfield MD LAB - HEMATOLOGY [place] [address], [facility] [phone] * (ABNORMAL) LACTIC ACID BLOOD (09/06/2017 11:57 AM CDT) Lactic Acid-Stat 3.3(HH) 0.5 - 2.0 mmol/L [facility] Comment:RESULTS CALLED TO AN D READ BACK BY DONTAE MACIEL AT 1:07 PM, 09/06/2017 Blood specimen (specimen) BLOOD SPECIMEN / Unknown 09/06/2017 11:57 AM CDT 09/06/2017 12:08 PM CDT Bandar Mansfield MD LAB - CHEMISTRY OR DERABLES Performing Organization Address City/State/[facility] [place] [address], [facility] [phone] * CBC W AUTO DIFFERENTIAL (09/06/2017 11:57 AM CDT) Blood specimen (specimen) BLOOD SPECIMEN / Unknown 09/06/2017 11:57 AM CDT Narrative [facility] - 09/06/2017 12:16 PM CDT The following orders were created for panel order CBC w Differential. Procedure ? Abnormality ? Status ? --------- ? ------ ? CBC WITH DIFFERENTIAL[[id number]] ? Abnormal ?Final result ? Please view results for these tests on the individual orders. Bandar Mansfield MD LAB - HEMATOLOGY O RDERABLES [facility] [address] [place] [address], [facility] * XR CHEST 1VW PORTABLE (09/06/2017 11:56 AM CDT) Anatomical Region Laterality Modality Chest Other Impressions 09/07/2017 12:31 PM CDT IMPRESSION: Endotracheal tube terminates at the mid thoracic trachea. A gastric tube and a feeding tube seen in the stomach with tip of the feeding tube is out of field of view. Surgical diogenes superimpose the left lower chest/left upper abdomen. There is interval development of complete opacification of the left lung which may represent mucus plugging, pleural effusion, atelectasis and/or airspace disease. Increased mild interstitial opacities are seen in the right lung. Small right pleural effusion is seen. There is no pneumothorax. The cardiomediastinal silhouette is obscured. ??The visible bony thorax is intact. Report dictated by Rohan Hopkins M.D. (president). I, Dr. VIBHA PHELPS M.D. have personally reviewed and interpreted this examination/study. This report was electronically signed by VIBHA PHELPS M.D. ??on 09/07/2017 12:31 PM . Narrative 09/07/2017 12:31 PM CDT EXAMINATION: PX CHEST 1 VW HISTORY: resp failure COMPARISON: 09/02/2017 FINDINGS/ Procedure Note Vibha Phelps MD - 09/10/2017 EXAMINATION: PX CHEST 1 VW HISTORY: resp failure COMPARISON: 09/02/2017 FINDINGS/ IMPRESSION IMPRESSION: Endotracheal tube terminates at the mid thoracic trachea. A gastric tubeand a feeding tube seen in the stomach with tip of the feeding tube is outof field of view. Surgical diogenes superimpose the left lower chest/leftupper abdomen. There is interval development of complete opacification of the left lungwhich may represent mucus plugging, pleural effusion, atelectasis and/orairspace disease. Increased mild interstitial opacities are seen in theright lung. Small right pleural effusion is seen. There is no pneumothorax. The cardiomediastinalsilhouette is obscured. The visible bony thorax is intact. Report dictated by Rohan Hopkins M.D. (president). I, Dr. VIBHA PHELPS M.D. have personally reviewed and interpreted thisexamination/study. This report was electronically signed by VIBHA PHELPS M.D. on 09/07/201712:31 PM . Bandar Mansfield MD DIAGNOSTIC IMAGING ORDERABLES * EKG 12-LEAD (09/06/2017 12:00 AM CDT) EKG [facility] Comment: Exam Date/Time: ?? Sep 06 2017 11:43:27 Test Reason : dyspnea Blood Pressure : / mmHG Vent. Rate : 104 BPM ? Atrial Rate : 096 BPM ?? P-R Int : 000 ms ?QRS Dur : 092 ms ?QT Int : 376 ms ? P-R-T Axes : 000 014 176 degrees ?? QTc Int : 494 ms Atrial fibrillation with rapid ventricular response Possible Anterolateral infarct (cited on or before 12-AUG-2017) Abnormal ECG When compared with ECG of 27-AUG-2017 05:00, Questionable change in initial forces of Lateral leads HR has decreased by 14 bpm Confirmed by MD Jaime, Aneta ([id number]), visual effects editor Robi Pavon ([id number]) on 09/10/2017 5:58:12 PM Referred By: REFERRING NO ? Confirmed By:Aneta Sandoval MD 09/06/2017 Bandar Mansfield MD ECG ORDERABLES [facility] documented in this encounter Visit Diagnoses Diagnosis Hypoxemia- Primary Pleural effusion, not elsewhere classified Severe sepsis without septic shock (CODE) (HCC) Uses feeding tube Extradural and subdural abscess, unspecified (HCC) Acute respiratory failure with hypoxia (HCC) Acute respiratory failure Acute respiratory failure with hypoxia (HCC) Acute respiratory failure Methicillin resistant Staphylococcus aureus infection Methicillin resistant Staphylococcus aureus in conditions classified elsewhere and of unspecified site Discitis of lumbar region Other and unspecified disc disorder of lumbar region documented in this encounter Administered Medications Inactive Administered Medications - up to 3 most recent administrations Medication Order MAR Action Action Date Dose Rate Site 0.9% NaCl infusion ADS Med 1 dose, Starting on Kellen 09/15/17 at 0908, Until Kellen 09/15/17 at 0910, Jean Vargas: soila override 0.9% NaCl infusion at 300 mL/hr, Intravenous, ONCE, 1 dose, On [place] 09/15/17 at 1000 $ New Bag/Syringe 09/15/2017 9:10 AM CDT 300 mL/hr 0.9% NaCl injection 10 mL 10 mL, Intracatheter, PRN, Other, Starting on 09/10/17 at 0000, Until 09/19/17 at 1420 albuterol (PROVENTIL;VENTOLIN) (5 MG/ML) 0.5% nebulizer solution 2.5 mg 2.5 mg, Inhalation, EVERY 4 HOURS, First dose on [facility] 09/10/17 at 0000, Until Discontinued, Dilute prior to administration via nebulization. $ Given 09/19/2017 12:52 PM CDT 2.5 mg $ Given 09/19/2017 8:25 AM CDT 2.5 mg $ Given 09/19/2017 4:10 AM CDT 2.5 mg amiodarone (CORDARONE) tablet 200 mg 200 mg, Oral, 2 TIMES DAILY, First dose on [facility] 09/10/17 at 0900, Until Discontinued $ Given 09/18/2017 9:30 PM CDT 200 m g $ Given 09/18/2017 8:12 AM CDT 200 mg $ Given 09/17/2017 9:00 PM CDT 200 mg G Tube amiodarone (CORDARONE) tablet 200 mg 200 mg, Enteral Tube, 2 TIMES DAILY, First dose (after last modification) on 09/19/17 at 0900, Until Discontinued $ Given 09/19/2017 9:10 AM CDT 200 mg G Tub e aspirin (ASPIRIN) chew tablet 81 mg 81 mg, Oral, DAILY, First dose on 09/10/17 at 0900, Until Discontinued $ Given 09/18/2017 8:12 AM CDT 81 mg $ Given 09/17/2017 8:53 AM CDT 81 mg G Tube $ Given 09/16/2017 8:03 AM CDT 81 mg aspirin (ASPIRIN) chew tablet 81 mg 81 mg, Enteral Tube, DAILY, First dose (after last modification) on 09/19/17 at 0900, Until Discontinued $ Given 09/19/2017 9:11 AM CDT 81 mg G Tube atorvastatin (LIPITOR) tablet 20 mg 20 mg, Oral, DAILY, First dose (after last modification) on 09/10/17 at 0900, Until Discontinued $ Given 09/18/2017 8:12 AM CDT 20 mg $ Given 09/17/2017 8:52 AM CDT 20 mg G Tube $ Given 09/16/2017 8:03 AM CDT 20 mg atorvastatin (LIPITOR) tablet 20 mg 20 mg, Enteral Tube, DAILY, First dose (after last modification) on 09/19/17 at 0900, Until Discontinued $ Given 09/19/2017 9:11 AM CDT 20 mg G Tube bisacodyl (DULCOLAX) suppository 10 mg 10 mg, Rectal, ONCE, 1 dose, On [place] 09/11/17 at 1100 $ Given 09/11/2017 10:57 AM CDT 10 mg ceFAZolin (ANCEF) syringe 2,000 mg 2,000 mg (2 g), Intravenous, ONCE, 1 dose, On [place] 09/15/17 at 0830, To be given within 30 mins of planned procedure (PEG tube placement) Administer over 3-5 minutes., Indication for anti-infective therapy: Surgical prophylaxis, Site of anti-infective therapy: Skin/soft tissue $ Given 09/15/2017 9:15 AM CDT 2,000 mg ceftaroline (TEFLARO) 600 mg in 0.9% NaCl 70 mL IVPB 600 mg, at 140 mL/hr, Intravenous, EVERY 12 HOURS, 10 doses, First dose (after last modification) on 09/10/17 at 0415, Last dose on Tue09/14/17 at 1615, Refrigerate, Indication for anti-infective therapy: Documented infection, Site of anti-infective therapy: Bone/Joint $ New Bag/Syringe 09/14/2017 3:27 PM CDT 600 mg 140 mL/hr $ New Bag/Syringe 09/14/2017 5:21 AM CDT 600 mg 140 mL /hr $ New Bag/Syringe 09/13/2017 4:23 PM CDT 600 mg 140 mL /hr chlorhexidine (PERIDEX) 0.12 % oral solution Mouth/Throat, 2 TIMES DAILY, First dose on [facility] 09/10/17 at 0900, Until Discontinued, Swab mouth (oral cavity) wile mechanically ventilated . WASTE DISPOSAL INSTRUCTIONS: Black Bin Disposal required. $ Given 09/19/2017 9:11 AM CDT $ Given 09/18/2017 9:30 PM CDT 15 mL $ Given 09/18/2017 8:12 AM CDT 15 mL dextrose IV 12.5-25 g 12.5-25 g (25-50 mL), Intravenous, PRN, Bedside Glucose less than 70 mg/dL -If NOT able to eat and/or NPO and with IV Access, Starting on Tue09/09/17 at 1337, Until Tue09/19/17 at 1420, If NOT able to eat and/or NPO [...] 80 mg/dl. NOTIFY PROVIDER OF HYPOGLYCEMIC EVENT. docusate sodium (COLACE) solution 100 mg 100 mg, Enteral Tube, DAILY, 365 doses, First dose on 09/11/17 at 0900, Last dose on Tue09/10/18 at 0900 $ Given 09/19/2017 9:11 AM CDT 100 mg G Tube $ Given 09/18/2017 8:12 AM CDT 100 mg G Tube $ Given 09/17/2017 8:54 AM CDT 100 mg G Tube enoxaparin (LOVENOX) injection 40 mg 40 mg, Subcutaneous, DAILY, First dose on 09/10/17 at 0500, Until Discontinued, (for prefilled syringes) do not expel air bubble from the syringe prior to the injection Remind Patient to not rub injection site. Could cause hematoma. $ Given 09/11/2017 4:32 AM CDT 40 mg Abd Right Lower Quad rant $ Given 09/10/2017 4:38 AM CDT 40 mg Ab d Left Lower Quadrant enoxaparin (LOVENOX) injection 40 mg 40 mg, Subcutaneous, DAILY, 30 doses, First dose (after last modification) on Tue09/13/17 at 0515, Last dose on 5/9/18 at 0500, (for prefilled syringes) do not expel air bubble from the syringe prior to the injection Remind Patient to not rub injection site. Could cause hematoma. $ Given 09/14/2017 5:22 AM CDT 40 mg Abdominal Tissue enoxaparin (LOVENOX) injection 40 mg 40 mg, Subcutaneous, DAILY, 365 doses, First dose on Tue09/16/17 at 1130, Last dose on Tue09/15/18 at 0900, (for prefilled syringes) do not expel air bubble from the syringe prior to the injection Remind Patient to not rub injection site. Could cause hematoma. $ Given 09/19/2017 9:11 AM CDT 40 mg Abd Right Lower Quad rant $ Given 09/18/2017 8:12 AM CDT 40 mg Ab dominal Tissue $ Given 09/17/2017 8:54 AM CDT 40 mg Ab dominal Tissue famotidine (PEPCID) injection 20 mg 20 mg, Intravenous, 2 TIMES DAILY, First dose on 09/10/17 at 0900, Until Discontinued, Dilute 2 mL of injection with 0.9% NaCl or D5W solution to a volume of 5 to 10 ml. Push over a period of at least 2 minutes. $ Given 09/18/2017 9:30 PM CDT 20 mg $ Given 09/17/2017 9:00 PM CDT 20 mg $ Given 09/15/2017 11:10 AM CDT 20 mg famotidine (PEPCID) tablet 20 mg 20 mg, Oral, 2 TIMES DAILY, First dose on 09/10/17 at 0900, Until Discontinued $ Given 09/19/2017 9:12 AM CDT 20 mg $ Given 09/18/2017 8:12 AM CDT 20 mg $ Given 09/17/2017 8:53 AM CDT 20 mg G Tube fentaNYL (PF) (SUBLIMAZE) injection 100 mcg 100 mcg, Intravenous, ONCE, 1 dose, On [place] 09/15/17 at 0945 $ Given 09/15/2017 9:11 AM CDT 100 mcg fentaNYL (PF) (SUBLIMAZE) injection 50 mcg 50 mcg, Intravenous, EVERY 1 HOUR PRN, Moderate Pain, Severe Pain, Starting on Tue09/14/17 at 0742, Until 09/19/17 at 1054 $ Given 09/18/2017 10:55 AM CDT 50 mcg $ Given 09/17/2017 9:51 PM CDT 50 mcg $ Given 09/16/2017 1:23 AM CDT 50 mcg fentaNYL (SUBLIMAZE) injection 0.05 mg/mL ADS Med 1 dose, Starting on [place] 09/15/17 at 0840, Until [place] 09/15/17 at 0911, Denise Damon: cabinet override furosemide (LASIX) injection 20 mg 20 mg, Intravenous, EVERY 6 HOURS, 2 doses, First dose on 09/10/17 at 1215, Last dose on 09/10/17 at 1815 $ Given 09/10/2017 6:25 PM CDT 20 mg $ Given 09/10/2017 1:16 PM CDT 20 mg furosemide (LASIX) injection 20 mg 20 mg, Intravenous, 2 TIMES DAILY, 730 doses, First dose on 09/11/17 at 1115, Last dose on 09/10/18 at 1700 $ Given 09/13/2017 4:23 PM CDT 20 mg $ Given 09/13/2017 8:55 AM CDT 20 mg $ Given 09/12/2017 4:43 PM CDT 20 mg furosemide (LASIX) injection 20 mg 20 mg, Intravenous, DAILY, First dose (after last modification) on Tue09/14/17 at 0900, Until Discontinued $ Given 09/17/2017 8:54 AM CDT 20 mg $ Given 09/16/2017 8:03 AM CDT 20 mg $ Given 09/15/2017 11:10 AM CDT 20 mg glucagon (GLUCAGEN) injection 1 mg 1 mg, Intramuscular, PRN, Bedside Glucose less than 70 mg/dL - If NOT able to eat and/or NPO and withOUT IV Access, Starting on Tue09/09/17 at 1040, Until Tue09/19/17 at 1420, If NOT able to eat and/or NPO [...] unused portion glucose (Diabetic Use) oral gel 15-30 g 15-30 g, Oral, PRN, Other, Bedside Glucose less than 70 mg/dL -If able to eat and does not have swallowing difficulties, Starting on Tue09/09/17 at 1040, Until 09/19/17 at 1420, If able to eat and does not [...] 80 mg/dl. NOTIFY PROVIDER OF HYPOGLYCEMIC EVENT. insulin regular human (humuLIN R; novoLIN R) 100 UNIT/ML injection 0-6 Units 0-6 Units, Subcutaneous, EVERY 6 HOURS, First dose on 09/10/17 at 0000, Until Discontinued, . 150-200 = 1 unit 201-250 = 2 units 251-300 = 3 units 301-350 = 4 units 351-400 = 5 units and contact MD for BG GREATER than 350 GREATER than 400 = 6 units and contact MD for BG GREATER than 350 . WASTE DISPOSAL INSTRUCTIONS: Black Bin Disposal required. $ Given 09/19/2017 6:52 AM CDT 1 Units Left Arm $ Given 09/17/2017 7:30 PM CDT 1 Units Ab dominal Tissue $ Given 09/14/2017 6:34 PM CDT 1 Units Le ft Arm lidocaine (LIDODERM) 5 % patch 1 patch 1 patch, Administer over 12 Hours, DAILY, 365 doses, First dose on 09/10/17 at 0900, Last dose on Tue09/09/18 at 0900, Apply to lower back and remove patch after a max of 12 hours of application within a 24 hour period. $ Applied 09/19/2017 9:12 AM CDT 1 patch Back $ Applied 09/18/2017 8:12 AM CDT 1 patch Ba ck $ Applied 09/17/2017 8:54 AM CDT 1 patch Ba ck magnesium sulfate 2 g in 50 mL bolus 2 g, at 25 mL/hr, Administer over 120 Minutes, Intravenous, ONCE, 1 dose, On Tue09/11/17 at 0600, Infuse at 1 gm/hr $ New Bag/Syringe 09/11/2017 5:56 AM CDT 2 g 25 mL/hr magnesium sulfate 2 g in 50 mL bolus 2 g, at 25 mL/hr, Administer over 120 Minutes, Intravenous, ONCE, 1 dose, On Tue09/13/17 at 0615, Infuse at 1 gm/hr $ New Bag/Syringe 09/13/2017 7:30 AM CDT 2 g 25 mL/hr magnesium sulfate 2 g in 50 mL bolus 2 g, at 25 mL/hr, Administer over 120 Minutes, Intravenous, ONCE, 1 dose, On Tue09/14/17 at 0630, Infuse at 1 gm/hr $ New Bag/Syringe 09/14/2017 6:27 AM CDT 2 g 25 mL/hr magnesium sulfate 2 g in 50 mL bolus 2 g, at 25 mL/hr, Administer over 120 Minutes, Intravenous, ONCE, 1 dose, On Tue09/15/17 at 0615, Infuse at 1 gm/hr $ New Bag/Syringe 09/15/2017 10:27 AM CDT 2 g 25 mL/hr magnesium sulfate 2 g in 50 mL bolus 2 g, at 25 mL/hr, Administer over 120 Minutes, Intravenous, ONCE, 1 dose, On Tue09/19/17 at 0445, Infuse at 1 gm/hr $ New Bag/Syringe 09/19/2017 6:53 AM CDT 2 g 25 mL/hr metroNIDAZOLE (FLAGYL) tablet 500 mg 500 mg, Enteral Tube, EVERY 8 HOURS, 14 doses, First dose on Tue09/10/17 at 0900, Last dose on Tue09/14/17 at 1000, May take with food or milk., Indication for anti-infective therapy: Documented infection, Site of anti-infective therapy: Bone/Joint $ Given 09/14/2017 8:43 AM CDT 500 mg NG Tube $ Given 09/14/2017 3:44 AM CDT 500 mg NG Tube $ Given 09/13/2017 5:00 PM CDT 500 mg NG Tube midazolam (VERSED) 1 mg/mL injection ADS Med 1 dose, Starting on [place] 09/15/17 at 0839, Until [place] 09/15/17 at 0911, Denise Damon: cabinet override midazolam (VERSED) injection 3 mg 3 mg, Intravenous, ONCE, 1 dose, On [place] 09/15/17 at 0945 $ Given 09/15/2017 9:11 AM CDT 3 mg oxyCODONE (immediate release) (ROXICODONE) tablet 5 mg 5 mg, Oral, EVERY 4 HOURS PRN, Moderate Pain, Starting on 09/10/17 at 0000, Until Tue09/16/17 at 1758 $ Given 09/16/2017 5:04 PM CDT 5 mg $ Given 09/16/2017 8:03 AM CDT 5 mg $ Given 09/15/2017 8:59 PM CDT 5 mg oxyCODONE (immediate release) (ROXICODONE) tablet 5 mg 5 mg, Oral, EVERY 3 HOURS PRN, Moderate Pain, Severe Pain, Starting on Tue09/16/17 at 1800, Until Tue09/19/17 at 1054 $ Given 09/18/2017 9:30 PM CDT 5 mg $ Given 09/18/2017 5:02 PM CDT 5 mg $ Given 09/18/2017 1:15 PM CDT 5 mg oxyCODONE (immediate release) (ROXICODONE) tablet 5 mg 5 mg, Enteral Tube, EVERY 4 HOURS PRN, Moderate Pain, Severe Pain, Starting on Tue09/19/17 at 1100, Until Tue09/19/17 at 1420 $ Given 09/19/2017 12:57 PM CDT 5 mg G Tu be $ Given 09/19/2017 8:30 AM CDT 5 mg G Tube oxyCODONE (ROXICODONE) oral solution 5 mg 5 mg, Enteral Tube, ONCE, 1 dose, On Tue09/12/17 at 2000 $ Given 09/12/2017 8:17 PM CDT 5 mg NG Tube polyethylene glycol 3350 (MIRALAX) packet 17 g 17 g, Enteral Tube, DAILY PRN, Constipation, Starting on Tue09/11/17 at 0039, Until 09/19/17 at 1420, Mix in 8 ounces of water, juice, soda, coffee or tea prior to administration $ Given 09/11/2017 8:42 AM CDT 17 g G T ube potassium chloride (KLOR-CON) packet 40 mEq 40 mEq, Enteral Tube, ONCE, 1 dose, On 09/18/17 at 0230, DISSOLVE IN 120 ML OF COLD WATER OR JUICE AND DRINK SLOWLY $ Given 09/18/2017 4:49 AM CDT 40 mEq G Tub e potassium chloride (KLOR-CON) packet 40 mEq 40 mEq, Enteral Tube, ONCE, 1 dose, On Tue09/18/17 at 0815, DISSOLVE IN 120 ML OF COLD WATER OR JUICE AND DRINK SLOWLY $ Given 09/18/2017 8:18 AM CDT 40 mEq G Tub e senna (SENOKOT) tablet 8.6 mg 8.6 mg, Enteral Tube, 2 TIMES DAILY, 730 doses, First dose on Tue09/11/17 at 0045, Last dose on Tue09/10/18 at 0900 $ Given 09/19/2017 9:13 AM CDT 8.6 mg G Tub e $ Given 09/18/2017 9:29 PM CDT 8.6 mg G Tube $ Given 09/18/2017 8:12 AM CDT 8.6 mg G Tube sodium phosphate 30 mmol in dextrose 5 % 260 mL bolus 30 mmol, at 43.33 mL/hr, Administer over 6 Hours, Intravenous, ONCE, 1 dose, On Tue09/16/17 at 0515 $ New Bag/Syringe 09/16/2017 6:33 AM CDT 30 mmol 43.33 mL/hr documented in this encounter Active and Recently Administered Medications Times are shown in CDT. Scheduled Medication Order 09/17/2017 09/18/2017 09/19/2017 albuterol (PROVENTIL;VENTOLIN) (5 MG/ML) 0.5% nebulizer solution 2.5 mg 2.5 mg, Inhalation, EVERY 4 HOURS, First dose on 09/10/17 at 0000, Until Discontinued, Dilute prior to administration via nebulization. 0200 ($ Given - Provider: Jadon Araujo RCP)0505 ($ Given - Provider: Jadon Araujo [facility])0840 ($ Given - Provider: Taylor Coleman [facility])1341 ($ Given - Provider: Taylor Coleman [facility])1725 ($ Given - Provider: Taylor Coleman, [facility])2035 ($ Given - Provider: Jadon Araujo [facility]) 0141 ($ Given - Provider: Jadon Araujo [facility])0611 ($ Given - Provider: Jadon Araujo [facility])0839 ($ Given - Provider: Taylor Coleman [facility])1259 ($ Given - Provider: Taylor Coleman, [facility])1650 ($ Given - Provider: Taylor Coleman [facility])2019 ($ Given - Provider: Michael Callahan [facility]) 0008 ($ Given - Provider: Michael Callahan [facility])0410 ($ Given - Provider: Michael Callahan [facility])0825 ($ Given - Provider: Taylor Coleman [facility])1252 ($ Given - Provider: Taylor Coleman [facility]) amiodarone (CORDARONE) tablet 200 mg (CANCELED) 200 mg, Oral, 2 TIMES DAILY, First dose on 09/10/17 at 0900, Until Discontinued 0853 ($ Given - Provider: Nora Butcher RN)2100 ($ Given - Provider: Malaika Gonzalez, DONTAE) 0812 ($ Given - Provider: Noa Reyes, DONTAE)2130 ($ Given - Provider: Malaika Gonzalez RN) amiodarone (CORDARONE) tablet 200 mg 200 mg, Enteral Tube, 2 TIMES DAILY, First dose (after last modification) on 09/19/17 at 0900, Until Discontinued 0910 ($ Given - Provider: Karina Walker, DONTAE) aspirin (ASPIRIN) chew tablet 81 mg (CANCELED) 81 mg, Oral, DAILY, First dose on 09/10/17 at 0900, Until Discontinued 0853 ($ Given - Provider: Nora Butcher RN) 0812 ($ Given - Provider: Noa Reyes, DONTAE) aspirin (ASPIRIN) chew tablet 81 mg 81 mg, Enteral Tube, DAILY, First dose (after last modification) on 09/19/17 at 0900, Until Discontinued 09 ($ Given - Provider: Karina Walker, DONTAE) atorvastatin (LIPITOR) tablet 20 mg (CANCELED) 20 mg, Oral, DAILY, First dose (after last modification) on 09/10/17 at 0900, Until Discontinued 0852 ($ Given - Provider: Nora Butcher RN) 0812 ($ Given - Provider: Noa Reyes, DONTAE) atorvastatin (LIPITOR) tablet 20 mg 20 mg, Enteral Tube, DAILY, First dose (after last modification) on 09/19/17 at 0900, Until Discontinued 09 ($ Given - Provider: Karina Walker RN) chlorhexidine (PERIDEX) 0.12 % oral solution Mouth/Throat, 2 TIMES DAILY, First dose on 09/10/17 at 0900, Until Discontinued, Swab mouth (oral cavity) wile mechanically ventilated . WASTE DISPOSAL INSTRUCTIONS: Black Bin Disposal required. 0854 ($ Given - Provider: Nora Butcher RN)2100 ($ Given - Provider: Malaika Gonzalez, DONTAE) 0812 ($ Given - Provider: Noa Reyes, DONTAE)2130 ($ Given - Provider: Malaika Gonzalez, DONTAE) 0911 ($ Given - Provider: Karina Walker, DONTAE) docusate sodium (COLACE) solution 100 mg 100 mg, Enteral Tube, DAILY, 365 doses, First dose on 09/11/17 at 0900, Last dose on 09/10/18 at 0900 0854 ($ Given - Provider: Nora Butcher RN) 0812 ($ Given - Provider: Noa Reyes, DONTAE) 0911 ($ Given - Provider: Karina Walker, DONTAE) enoxaparin (LOVENOX) injection 40 mg 40 mg, Subcutaneous, DAILY, 365 doses, First dose on Tue09/16/17 at 1130, Last dose on Tue09/15/18 at 0900, (for prefilled syringes) do not expel air bubble from the syringe prior to the injection Remind Patient to not rub injection site. Could cause hematoma. 0854 ($ Given - Provider: Nora Butcher RN) 0812 ($ Given - Provider: Noa Reyes RN) 0911 ($ Given - Provider: Karina Walker, DONTAE) famotidine (PEPCID) injection 20 mg(Linked Group 1) 20 mg, Intravenous, 2 TIMES DAILY, First dose on 09/10/17 at 0900, Until Discontinued, Dilute 2 mL of injection with 0.9% NaCl or D5W solution to a volume of 5 to 10 ml. Push over a period of at least 2 minutes. 0853 (See Alternative - Provider: Nora Butcher RN)2100 ($ Given - Provider: Malaika Gonzalez RN) 0812 (See Alternative - Provider: Noa Reyes RN)2130 ($ Given - Provider: Malaika Gonzalez RN) 0912 (See Alternative - Provider: Karina Walker RN) famotidine (PEPCID) tablet 20 mg(Linked Group 1) 20 mg, Oral, 2 TIMES DAILY, First dose on Tue09/10/17 at 0900, Until Discontinued 0853 ($ Given - Provider: Nora Butcher RN)2100 (See Alternative - Provider: Malaika Gonzalez RN) 0812 ($ Given - Provider: Noa Reyes RN)2130 (See Alternative - Provider: Malaika Gonzalez RN) 09 ($ Given - Provider: Karina Walker RN) furosemide (LASIX) injection 20 mg (CANCELED) 20 mg, Intravenous, DAILY, First dose (after last modification) on Tue09/14/17 at 0900, Until Discontinued 0854 ($ Given - Provider: Nora Butcher RN) insulin regular human (humuLIN R; novoLIN R) 100 UNIT/ML injection 0-6 Units 0-6 Units, Subcutaneous, EVERY 6 HOURS, First dose on Tue09/10/17 at 0000, Until Discontinued, . 150-200 = 1 unit 201-250 = 2 units 251-300 = 3 units 301-350 = 4 units 351-400 = 5 units and contact MD for BG GREATER than 350 GREATER than 400 = 6 units and contact MD for BG GREATER than 350 . WASTE DISPOSAL INSTRUCTIONS: Black Bin Disposal required. 0145 (Not Administered - Provider: Grecia Feliciano RN - Reason: Per Administration Instructions)0705 (Not Administered - Provider: Grecia Feliciano RN - Reason: Per Administration Instructions)1248 (Not Administered - Provider: Nora Butcher RN - Reason: Per Administration Instructions)1930 ($ Given - Provider: Nora Butcher RN) 0000 (Not Administered - Provider: Malaika Gonzalez RN - Reason: Per Administration Instructions)0813 (Not Administered - Provider: Noa Reyes RN - Reason: Per Administration Instructions)1305 (Not Administered - Provider: Noa Reyes RN - Reason: Per Administration Instructions)1800 (Not Administered - Provider: Noa Reyes RN - Reason: Per Administration Instructions) 0000 (Not Administered - Provider: Malaika Gonzalez RN - Reason: Per Administration Instructions)0652 ($ Given - Provider: Malaika Gonzalez RN)1200 (Due) lidocaine (LIDODERM) 5 % patch 1 patch 1 patch, Administer over 12 Hours, DAILY, 365 doses, First dose on 09/10/17 at 0900, Last dose on 09/09/18 at 0900, Apply to lower back and remove patch after a max of 12 hours of application within a 24 hour period. 0854 ($ Applied - Provider: Nora Butcher RN)2141 (Removed - Provider: Malaika Gonzalez RN) 0812 ($ Applied - Provider: Noa Reyes RN)2230 (Removed - Provider: Malaika Gonzalez RN) 0912 ($ Applied - Provider: Karina Walker, DONTAE)2112 (Due: Removed - Provider: Karina Walker, DONTAE) magnesium sulfate 2 g in 50 mL bolus (COMPLETED) 2 g, at 25 mL/hr, Administer over 120 Minutes, Intravenous, ONCE, 1 dose, On 09/19/17 at 0445, Infuse at 1 gm/hr 0653 ($ New Bag/Syringe - Provider: Malaika Gonzalez RN)0913 (Stopped - Provider: Karina Walker RN) potassium chloride (KLOR-CON) packet 40 mEq (COMPLETED) 40 mEq, Enteral Tube, ONCE, 1 dose, On Tue09/18/17 at 0230, DISSOLVE IN 120 ML OF COLD WATER OR JUICE AND DRINK SLOWLY 0449 ($ Given - Provider: Malaika Gonzlaez, DONTAE) potassium chloride (KLOR-CON) packet 40 mEq (COMPLETED) 40 mEq, Enteral Tube, ONCE, 1 dose, On 09/18/17 at 0815, DISSOLVE IN 120 ML OF COLD WATER OR JUICE AND DRINK SLOWLY 0818 ($ Given - Provider: Noa Reyes, RN) senna (SENOKOT) tablet 8.6 mg 8.6 mg, Enteral Tube, 2 TIMES DAILY, 730 doses, First dose on 09/11/17 at 0045, Last dose on Tue09/10/18 at 0900 0852 ($ Given - Provider: Nora Butcher, RN)2100 ($ Given - Provider: Malaika Gonzalez, RN) 0812 ($ Given - Provider: Noa Reyes, RN)2129 ($ Given - Provider: Malaika Gonzalez, RN) 0913 ($ Given - Provider: Karina Walker, DONTAE) PRN Medication Order 09/17/2017 09/18/2017 09/19/2017 0.9% NaCl injection 10 mL(Linked Group 2) 10 mL, Intracatheter, PRN, Other, Starting on 09/10/17 at 0000, Until Tue09/19/17 at 1420 dextrose IV 12.5-25 g 12.5-25 g (25-50 mL), Intravenous, PRN, Bedside Glucose less than 70 mg/dL -If NOT able to eat and/or NPO and with IV Access, Starting on Tue09/09/17 at 1337, Until Tue09/19/17 at 1420, If NOT able to eat and/or NPO [...] OF HYPOGLYCEMIC EVENT. fentaNYL (PF) (SUBLIMAZE) injection 50 mcg (CANCELED) 50 mcg, Intravenous, EVERY 1 HOUR PRN, Moderate Pain, Severe Pain, Starting on Tue09/14/17 at 0742, Until Tue09/19/17 at 1054 2151 ($ Given - Provider: Malaika Gonzalez, RN) 1055 ($ Given - Provider: Noa Reyes, RN) glucagon (GLUCAGEN) injection 1 mg 1 mg, Intramuscular, PRN, Bedside Glucose less than 70 mg/dL - If NOT able to eat and/or NPO and withOUT IV Access, Starting on Tue09/09/17 at 1040, Until Tue09/19/17 at 1420, If NOT able to eat and/or NPO [...] unused portion glucose (Diabetic Use) oral gel 15-30 g 15-30 g, Oral, PRN, Other, Bedside Glucose less than 70 mg/dL -If able to eat and does not have swallowing difficulties, Starting on Tue09/09/17 at 1040, Until Tue09/19/17 at 1420, If able to eat and does not [...] 80 mg/dl. NOTIFY PROVIDER OF HYPOGLYCEMIC EVENT. oxyCODONE (immediate release) (ROXICODONE) tablet 5 mg (CANCELED) 5 mg, Oral, EVERY 3 HOURS PRN, Moderate Pain, Severe Pain, Starting on Tue09/16/17 at 1800, Until Tue09/19/17 at 1054 0316 ($ Given - Provider: Grecia Feliciano RN)0919 ($ Given - Provider: Nora Butcher RN)1452 ($ Given - Provider: Nora Butcher RN)1751 ($ Given - Provider: Nora Butcher RN)2050 ($ Given - Provider: Malaika Gonzalez, DONTAE)2355 ($ Given - Provider: Malaika Gonzalez RN) 0450 ($ Given - Provider: Malaika Gonzalez RN)0832 ($ Given - Provider: Noa Reyes, DONTAE)1315 ($ Given - Provider: Noa Reyes, DONTAE)1702 ($ Given - Provider: Noa Reyes RN)2130 ($ Given - Provider: Malaika Gonzalez RN) oxyCODONE (immediate release) (ROXICODONE) tablet 5 mg 5 mg, Enteral Tube, EVERY 4 HOURS PRN, Moderate Pain, Severe Pain, Starting on Tue09/19/17 at 1100, Until Tue09/19/17 at 1420 0830 ($ Given - Provider: Karina Walker RN)1257 ($ Given - Provider: Karina Walker RN) polyethylene glycol 3350 (MIRALAX) packet 17 g 17 g, Enteral Tube, DAILY PRN, Constipation, Starting on Tue09/11/17 at 0039, Until Tue09/19/17 at 1420, Mix in 8 ounces of water, juice, soda, coffee or tea prior to administration Linked Groups Order Group 1: famotidine (PEPCID) injection 20 mgJump to med 20 mg, Intravenous, 2 TIMES DAILY, First dose on Tue09/10/17 at 0900, Until Discontinued, Dilute 2 mL of injection with 0.9% NaCl or D5W solution to a volume of 5 to 10 ml. Push over a period of at least 2 minutes. 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
--- OUTSIDE RECORDS SUMMARY | 2024-05-24 23:41 | XMS_ITS | Encounter Summary ---
Author Organization [facility] Address [address] [place] [address] Care Team Providers Care Diamond Saw Operator Name Role Phone Briana Medeiros MD Primary Care Provider [phone] Reason for Visit * Auth/Cert Specialty Diagnoses / Procedures Referred By Contac t Referred To Contact Diagnoses ACUTE HYPOXEMIC RESPIRATORY FAILURE Referral ID Status Reason Start Date Expiration Date Visits Re quested Visits Authorized [id number] 1 1 Encounter Details Date Type Department Care Team (Latest Contact Info) Description 09/15/2017 10:15 AM CDT - 09/15/2017 10:55 AM CDT Surgery [facility] ENDOSCOPY [address] [place] [id number] Louis Mcconnell MD [address] [phone] ESOPHAGOGASTRODUODENOSCOPY (EGD) DIAGNOSTIC Surgery Details Date/Time Status Location OR Service Patient Class Case Class Case Type Trauma Case? 09/15/2017 10:15 AM Posted [facility] Endoscopy ENDO 1 Gastroenterology Inpatient Panel 1 Procedure LRB Anes Op Region Wound Class Comments ESOPHAGOGASTRODUODENOSCOPY ( EGD) DIAGNOSTIC N/A Moderate Sedation Abdomen NA [id number] FR placed Surgeon Surgeon Role Service Panel Louis Mcconnell MD Primary Gastroenterology 1 documented in this encounter Social History Tobacco [...] Sign Reading Time Taken Comments Blood Pressure 114/74 09/15/2017 10:30 AM CDT Pulse 86 09/15/2017 10:30 AM CDT Temperature 36.7 ??C (98 ??F) 09/15/2017 10:30 AM CDT Respiratory Rate 18 09/15/2017 10:30 AM CDT Oxygen Saturation 98% 09/15/2017 10:30 AM CDT Inhaled Oxygen Concentration 40% 09/15/2017 1 0:30 AM CDT Weight 98.8 kg (217 lb 13 oz) 09/15/2017 5:00 AM CDT Height 177.8 cm (5' [...] Discharge Summary Patient ID: José Miguel Keys [id number] 66 y.o. 1950 Admit date: 09/06/2017 Discharge [...] chest to eval L pleural effusion, extubation 09/08 left pigtail drain placed. Tried tPa + [...] awake during the day and Volume AC(RR=15, Zz=194, PEEP=8) with sleep Oral care BID ?? [...] 1.0 Color Latest Ref Range: Colorless, Straw [place] (Abnormal) Clarity Latest Ref Range: Clear Slighty [...] Not Established For Fluids g/dL 1.5 Micro: 4/3: blood cx x2 NGTD /: bronchial wash culture NGTD 09/08: L pleural [...] was intubated Neurologic: nonfocal, generalized weakness Disposition: [facility] facility Patient Instructions: Current Discharge Medication [...] Enteral Tube route once daily Igor Gilliam polyethylene glycol 3350 packet Commonly known as: [...] 2 times daily with morning and evening assembler sandal partsIgor Gilliam * oxyCODONE (immediate release) 5 MG [...] MG capsule Commonly known as: SINEquan ergocalciferol 40584 UNITS capsule Commonly known as: DRISDOL ferrous [...] Commonly known as: KENALOG vitamin D (ergocalciferol) 25435 UNITS capsule Commonly known as: DRISDOL Activity: [...] Level of Care:LTAC Facility Name: [facility] party coordinator [place] Made Aware of Special Needs (if applicable): Facility aware of trach/vent and Tube and tube feeding needs RN Call Report to: [phone] RN Fax D/C Orders to: [phone] Transportation (company and number): [facility] [phone] trip number [id number] Certificate of Medical Necessity rationale: Trach and Vent Date/time of transfer: 09/19/2017 1300 Accepting MD: Dr. Espino [phone] Completed and Signed [id number] (if applicable) N/A Family/Other Notified of Transfer (name/phone): Trinity at [phone] Authorization Skilled Care: N/A Authorization for Transportation: trip ticket [id number] Comments: Patient has been accepted at [facility] in [place]. Patient and family agreeable with discharge plan. Christina Mendieta RN * Christina Mendieta RN - 09/19/2017 11:10 AM CDT Patient to be discharged to [facility] Location. Medical team aware and given report number for report.([phone]) Nursing given number for report [phone]. [facility] set up for transport at 1300. [...] CBC: Recent Labs Component Name 09/18/17 0003 09/17/17 0433 09/16/17 0413 WBC 8.7 8.1 8.5 HGB [...] - - - BUN 25 - - 19 - 18 - - - - - [...] Labs Component Name 09/10/17 0557 PO2ART 80 YAK4BTY 44 DCY5EDE 30.0* ?? Radiology: ?? CXR this morning [...] placement - patient has been accepted at [facility] Associated attestation - Poncho Galarza MD - [...] this interval not displayed. Assessment: José Miguel eKys is a 66 y.o. male with acute [...] (36.6 ??C) 86 16 124/71 Automatic 09/17/17 07 - 86 16 117/78 - 09/17/17 0600 [...] Review: ?? CBC: Recent Labs Component Name 04/43209/16/1741209/15/17440 WBC 8.1 8.5 8.6 HGB 8.7* 8.1* 8.2* MCV 96.1 96.2 95.5 PLT 182 172 186 BMP: Recent Labs Component Name 09/17/17 04309/16/17 2318 09/16/17 1841 09/16/17 0413 09/15/17 0441 [...] interval not displayed. Recent Labs Component Name 09/17/1743209/16/1741209/15/1744009/07/17427 CALCIUM 8.8 8.8 8.8 - 8.4 PHOS 3.2 2.6 - - 2.9 - = values in this interval not displayed. LFT: Recent Labs Component Name 09/06/17 11509/04/1744609/03/1743007/15/17 0504 PROT 6.2 5.3* 5.4* - 6.1 [...] Labs Component Name 09/10/17 0557 PO2ART 80 JLC0LUS 44 KDY1LRL 30.0* ?? Radiology: ?? CXR this morning [...] placement - patient has been accepted at [facility] Associated attestation - Poncho Galarza MD - [...] ??F (36.6 ??C) 86 16 124/71 09/17/17 07 - 86 16 117/78 09/17/17 0600 - [...] 0000 - 90 17 115/65 09/16/170 - 18 92/66 09/16/172199 - 14 116/78 09/16/172120 - - 16 - 09/16/172117 - 16 - 09/16/172007 98.4 ??F (36.9 ??C) [...] following commands LABS: Recent Labs Component Name 09/16/17 0413 09/15/17 [...] 190* 212* AST - - - - 27 26 ALT - - - - 03 17 12 INR 1.2 1.1 1.3 - - [...] Gastroenterology Fellow Vira Wilson MD Gastroenterology Fellow [phone]) [phone] * Jaclyn Monsivais RCP - 09/16/2017 12:08 [...] change trach on POD 5 which is 09/18. Case management updated [facility] facility [facility] party coordinator ley of potential discharge date. Will continue to keep facility updated. Christina Mendieta RN 09/16/2017 10:58 AM [phone] * Nicolas Fuentes OT - 09/16/2017 10:23 AM CDT [facility] Physical Medicine and Rehabilitation Occupational Therapy Progress Note Patient: José Miguel Keys Med Record Number: [id number] Date of : 1950 Age: 66 y.o. [...] Mobility: not tested, pt not ambulatory this Splint Issued/Checked: none Splint Check Completed: N/A [...] edge of bed With minimal assist ?? Care Home Goal: Patient to discharge to appropriate next level of inpatient care. If patient is discharged from the facility, this note serves as a discharge note if further occupational therapy visits did not occur. Following therapy session, patient left in neuro/annelise chair, with call light within reach and with RN, Jose L velásquez. Nicolas Fuentes OT * Beata Shafer, PT - 09/16/2017 10:22 AM CDT [facility] Physical Medicine and Rehabilitation PhysicalTherapy Progress Note Co-tx with OT and RT Patient: José Miguel Keys Med Record Number: [id number] Date of : 1950 Age: 66 y.o. [...] on edge of bed With minimal assist Care Home Goal: Patient to discharge to appropriate next [...] RN, Jose L aware. Beata Shafer, PT 09/16/2017 * Ирина Barrientos, [...] per nursing assess Estimated Energy Needs: KCAL: [phone] ([place] [employer] 2010-obese/vent (97.3kg)) Protein (g): 135-165 (1.8- 2.2g/kg (IBW) [...] hours Nutrition Goal Progress: New goal established Ирина Barrientos RD/SALVADOR * Vibha Fang RCP - 09/16/2017 9:19 [...] displayed. Recent Labs Component Name 09/16/17 0413 09/15/1744009/14/17 0521 09/07/17 0428 09/04/17 0447 CALCIUM 8.8 [...] displayed. Coagulation: Recent Labs Component Name 09/15/17 04409/11/17 0437 09/09/17 0422 PT 15.1* 14.1 15.8* INR 1.2 1.1 1.3 Lab results smartLinks are not currently available Cardiac markers: Recent Labs Component Name 09/06/17 1157 08/26/17 1420 TROPONINI 0.027 <0.010 ABGs: Recent Labs Component Name 09/10/17 0557 PO2ART 80 XYW4ZBS 44 UEZ5UEZ 30.0* ?? Radiology: ?? CXR this morning [...] placement - patient has been accepted at [facility] Associated attestation - Yogesh Duncan MD - [...] 0521 09/07/17 0428 09/06/17 1621 09/06/17 1211 09/04/17 0447 07/29/17 1130 NA - - 138 - [...] 7.45 7.51* 7.41 PO2ART 80 274* 65* CCD3NAS 44 38 45 BEART 5.4* 5.7* 2.4* [...] Dr. Yogesh Duncan MD, MPH * Jaclyn Monsivais, [facility] - 09/15/2017 3:53 PM CDT Patient seen [...] Isaacs, OT - 09/15/2017 2:15 PM CDT [facility] Physical Medicine and Rehabilitation Occupational Therapy Progress Note Patient: José Miguel Keys Med Record Number: [id number] Date of : 1950 Age: 66 y.o. [...] stand With mod assist and X 2 Refinery Operator Polymerization Plant Goal:Patient to discharge to appropriate next level [...] Shafer, PT - 09/15/2017 2:10 PM CDT [facility] Physical Medicine and Rehabilitation PhysicalTherapy Progress Note Co-tx with OT and RT Patient: José Miguel Keys Med Record Number: [id number] Date of : 1950 Age: 66 y.o. [...] on edge of bed With minimal assist Refinery Operator Polymerization Plant Goal: Patient to discharge to appropriate next [...] TBILI 0.3 ALB 1.8* -Impression: Need for half-way enteral feedings -Plan/ recommendations: - PEG today [...] Review: ?? CBC: Recent Labs Component Name 09/15/17 0441 09/14/17 0521 09/13/17 0517 WBC 8.6 10.1 8.9 HGB 8.2* 8.7* 8.5* MCV 95.5 94.7 93.6 PLT 186 224 213 BMP: Recent Labs Component Name 09/15/17 0441 09/15/17 0223 09/14/17 1945 09/14/17 0521 09/13/17 0517 [...] interval not displayed. Recent Labs Component Name 09/15/171 09/14/17 0521 09/13/17 0517 09/07/178 09/04/1744609/03/17 043 CALCIUM 8.8 8.7 9.0 - 8.4 - 8.4 8.6 PHOS - - - - 2.9 - 2.9 2.8 - = values in this interval not displayed. LFT: Recent Labs Component Name 09/06/17 1157 09/04/1744609/03/17 0431 07/15/17 0504 PROT 6.2 5.3* 5.4* - 6.1 ALB 1.8* 1.5* 1.5* - 2.4* ALKPHOS 204* 190* 212* - 157* AST 21 27 26 - 34 ALT 10 12 12 - 25 TBILI 0.3 0.3 0.3 - 1.8* GGT - - - - 66* - = values in this interval not displayed. Coagulation: Recent Labs Component Name 09/15/1744009/11/177 09/09/17 0422 PT 15.1* 14.1 15.8* INR 1.2 1.1 1.3 Lab results smartLinks are not currently available Cardiac markers: Recent Labs Component Name 09/06/17 1157 08/26/17 1420 TROPONINI 0.027 <0.010 ABGs: Recent Labs Component Name 09/10/17 0557 PO2ART 80 TFC7XTL 44 BEV3XQC 30.0* ?? Radiology: ?? CXR this morning [...] placement - patient has been accepted at [facility] * Bandar Davis MD - 09/15/2017 7:14 [...] Component Name 09/14/17 1246 09/14/17 0634 09/14/17 0509/13/17 0517 09/12/17 0514 09/06/17 1621 09/06/17 1211 [...] not displayed. Recent Labs Component Name 09/14/17 0509/13/1751609/12/1714 09/07/1742709/04/1744609/03/17 043 CALCIUM 8.7 9.0 8.6 - [...] not displayed. Coagulation: Recent Labs Component Name 09/11/1743609/09/172 09/07/17427 PT 14.1 15.8* 18.8* INR 1.1 1.3 1.6 Lab results smartLinks are not currently available Cardiac markers: Recent Labs Component Name 09/06/17 11508/26/17 1420 TROPONINI 0.027 <0.010 ABGs: Recent Labs Component Name 09/10/17 0557 PO2ART 80 EDV0VJT 44 LSU4GEU 30.0* ?? Radiology: ?? CXR this morning [...] Vita Troncoso MD 09/12/2017 * Kalyan Cook RCP - 09/14/2017 1:25 PM CDT Patient seen [...] Isaacs OT - 09/14/2017 1:20 PM CDT [facility] Physical Medicine and Rehabilitation Occupational Therapy Progress Note Patient: José Miguel Keys Med Record Number: [id number] Date of : 1950 Age: 66 y.o. [...] stand With mod assist and X 2 Refinery Operator Polymerization Plant Goal:Patient to discharge to appropriate next level of inpatient care If patient is discharged from the facility, this note serves as a discharge note if further occupational therapy visits did not occur. Following therapy session, patient left in bed, with call light within reach, with family in room and with RNAlexia. Gabriela Isaacs OT * Beata Shafer, PT - 09/14/2017 1:20 PM CDT [facility] Physical Medicine and Rehabilitation PhysicalTherapy Progress Note Updated orders received s/p tracheostomy, no re-evaluation indicated - continue PT POC Co-tx with OT and RT Patient: José Miguel Keys Med Record Number: [id number] Date of : 1950 Age: 66 y.o. [...] on edge of bed With minimal assist Care Home Goal: Patient to discharge to appropriate next level of inpatient care. Update Treatment Plan: Continue per plan If patient is discharged from the facility, this note serves as a discharge note if further physical therapy visits did not occur. Following therapy session, patient left in bed in chair position, with call light within reach and with RNAlexia aware. Beata Shafer, PT 09/14/2017 * Christina Mendieta RN - 09/14/2017 9:53 AM CDT Spoke with party coordinator from [facility]. Patient has been accepted at facility and may go when patient is medically stable. Nursing staff aware. Christina Mendieta RN 09/14/2017 9:57 AM * Beata Shafer, PT - 09/14/2017 7:51 AM CDT [facility] Department of Physical Medicine & Rehabilitation Progress Note Patient: José Miguel Keys [facility] Record Number: [id number] Date of : 1950 Age: 66 y.o. 09/14/17 0751 Therapy on Hold Therapy on hold Surgery. Chart reviewed, patient to OR with general anesthesia. Patient now on holdfrom therapy services. Please re-consult when patient is appropriate for functional mobility and therapy interventions. Beata Shafer, PT 09/14/2017 7:52 AM * Gabriela Isaacs OT - 09/14/2017 7:51 AM CDT Occupational Therapy [facility] Department of Physical Medicine & Rehabilitation Progress Note Patient: José Miguel Keys [facility] Record Number: [id number] Date of : 1950 Age: 66 y.o. [...] LTAC placement. 's preference is [facility]. Referral sent and call placed to correspondence coordinator and will review the patients eligibility today. Patient to have trach and PEG placed today. Christina Mendieta RN 09/13/2017 10:27 AM [phone] * Kalyan Cook RCP - 09/13/2017 9:35 AM CDT Patient seen for bedside mobility together with OT PT Start time: 934 End time: 1000 Session duration: 25 Airway [...] - 09/13/2017 9:30 AM CDT Occupational Therapy [facility] Physical Medicine and Rehabilitation Occupational Therapy Progress Note Patient: José Miguel Keys Med Record Number: [id number] Date of : 1950 Age: 66 y.o. [...] 2 and Patient will perform AROM Independently Refinery Operator Polymerization Plant Goal:Patient to discharge to appropriate next level of inpatient care If patient is discharged from the facility, this note serves as a discharge note if further occupational therapy visits did not occur. Following therapy session, patient left in bed, with call light within reach and with RNGlendy aware. Gabriela Isaacs OT * Beata Shafer, PT - 09/13/2017 9:30 AM CDT [facility] Physical Medicine and Rehabilitation PhysicalTherapy Progress Note Co-tx with OT and RT Patient: José Miguel Keys Med Record Number: [id number] Date of : 1950 Age: 66 y.o. [...] on edge of bed With minimal assist Care Home Goal: Patient to discharge to appropriate next level of inpatient care. Update Treatment Plan: Continue per plan If patient is discharged from the facility, this note serves as a discharge note if further physical therapy visits did not occur. Following therapy session, patient left in bed, with call light within reach and with RNGlendy aware. Beata Shafer, PT 09/13/2017 * Cleo [...] 09/12/17 2200 - 86 15 93/61 Automatic 09/12/17 2106 - 86 16 - - 09/12/17 2103 - 86 - - - 09/12/17 2100 [...] displayed. Recent Labs Component Name 09/12/17 0514 09/11/177 09/10/17 0504 09/07/17 0428 09/04/1744609/03/17 0431 CALCIUM 8.6 8.9 8.6 - 8.4 [...] not displayed. Coagulation: Recent Labs Component Name 09/11/177 09/09/17 0422 09/07/17427 PT 14.1 15.8* 18.8* INR 1.1 1.3 1.6 Lab results smartLinks are not currently available Cardiac markers: Recent Labs Component Name 09/06/17 1157 08/26/17 1420 TROPONINI 0.027 <0.010 ABGs: Recent Labs Component Name 09/10/17 0557 PO2ART 80 USD2ONS 44 HAS8XWW 30.0* ?? Radiology: ?? CXR this morning [...] 7.45 7.51* 7.41 PO2ART 80 274* 65* USS5MLE 44 38 45 BEART 5.4* 5.7* 2.4* [...] Yogesh Duncan MD, MPH * Tessie Harris, LEAF FAT SCRAPER - 09/12/2017 5:05 PM CDT SW following pt for discharge planning. Pt and family would prefer LTAC placement at [facility]. Family does not want pt to return to [place]. SW to submit LTAC referral to [facility] and continue following. Tessie Harris 09/12/2017 5:08 PM [phone] * Beata Shafer, PT - 09/12/2017 3:23 PM CDT [facility] Department of Physical Medicine & Rehabilitation Progress Note Patient: José Miguel Keys Med Record Number: [id number] Date of : 1950 Age: 66 y.o. Per discussion with MICU 3, cancel therapy this date 2/2 pt going for tracheostomy. Will continue to follow. Beata Shafer, PT 09/12/2017 3:23 PM * Gabriela Isaacs, OT - 09/12/2017 3:11 PM CDT Occupational Therapy [facility] Department of Physical Medicine & Rehabilitation Progress Note Patient: José Miguel Keys Med Record Number: [id number] Date of : 1950 Age: 66 y.o. Per discussion with MD (MICU 3), cancel therapy this date due to procedure plans today (tracheostomy). Will follow up tomorrow, 09/13. Gabriela Isaacs OT 09/12/2017 3:12 PM * Ирина Barrientos, RD/LD [...] Pain affecting intake: No Estimated Needs: KCAL: 6668-4648 ([facility] 2010-obese/vent (97.3kg)) Protein (g): 135-165 (1.8-2.2g/kg (IBW) [...] for assistance. Nodded head with understanding. Dominik Mak RN * Vita Troncoso MD - 09/12/2017 [...] chest to eval L pleural effusion, extubation 5left pigtail drain placed. Tried tPa + dornase [...] Labs Component Name 09/10/17 0557 PO2ART 80 VXF1WDP 44 GDP9IZG 30.0* ?? Radiology: ?? CXR this morning [...] Recent Labs Component Name 09/12/17 0514 09/11/17 04309/10/17 0504 WBC 9.5 11.0* 11.0* HGB 8.6* 8.7* 8.0* HCT 28.8* 29.4* 27.1* PLT 185 234 249 BMP: Recent Labs Component Name 09/12/17 1333 09/12/17 0514 09/12/17 0512 09/11/17 0437 09/10/17 0504 09/07/17 0428 09/06/17 1621 09/06/17 1211 09/04/1744609/03/17 0431 07/29/17 1130 NA - 139 - [...] 7.45 7.51* 7.41 PO2ART 80 274* 65* AHG3EFG 44 38 45 BEART 5.4* 5.7* 2.4* [...] ?? CBC: Recent Labs Component Name 09/11/17 0437 09/10/17 0504 08/09/17 0456 WBC 11.0* 11.0* 18.1* [...] Labs Component Name 09/10/17 0557 PO2ART 80 IZE5SGF 44 ZNN9OSH 30.0* ?? Radiology: ?? CXR this morning [...] of Pulmonary, Critical Care, & Sleep Medicine [facility] Pager: [phone] * Hoa Price RN - 09/10/2017 11:51 PM CDT Problem: [...] Labs Component Name 09/10/17 0557 PO2ART 80 CLO4IBR 44 FLM1PCT 30.0* ?? Radiology: ?? CXR this morning [...] of Pulmonary, Critical Care, & Sleep Medicine [facility] Pager: [phone] Associated attestation - Jason Nash MD - 09/10/2017 6:14 PM CDT I saw and evaluated the patient with the team, and agree with the Dr. Costello's findings and plan except for changes as per my note. Jasno Nash MD 09/10/2017 * Babita Browning RN [...] 30 Mins. Jason Nash MD 09/10/2017 * Provider, MD Claire - 09/09/2017 4:59 PM CDT Progress Notes Signed by CHRIS Ibanez on 09/09/2017 5:01 PM Author: CHRIS Ibanez Service: (none) Author Type: Tree And Shrub Technician Date of Service: 09/09/2017 4:59 PM Filed: 09/09/2017 5:01 PM Note Type: Progress Notes Status: Signed Helmet Coverer: CHRIS Ibanez (Tree And Shrub Technician) LAURA following pt for discharge planning. LAURA met with pt's , Trinity Keys [phone], to offer support. SW familiar with pt [...] PM Note Type: Progress Notes Status: Signed Helmet Coverer: RT Elda (Respiratory Therapist) 09/09/17 1642 RT/ Bronch Procedure $ Bedside Bronch Flexible Bronchoscopy Procedures Flexible [facility] Pre-Procedure Diagnosis Pre Procedure LOC: Sedated Procedure details Procedure start time: 1425 Scope in time: 1426 ETT Size: 8 Post Procedure Dx Scope Number: disposable Scope out time: 1450 Procedure ends: 1450 Report given to: RN Assisted with bedside bronchoscopy. Reading protocol checklist completed prior to procedure with [...] PM Note Type: Progress Notes Status: Signed Helmet Coverer: RT Martha (Respiratory Therapist) Respiratory therapist assisted with PO/OT.Manage ventilator. * Provider, MD Claire - 09/09/2017 1:36 PM CDT Progress Notes Signed by MARTHA Enciso on 09/09/2017 3:00 PM Author: MARTHA Enciso Service: (none) Author Type: Occupational Therapist Date of Service: 09/09/2017 1:36 PM Filed: 09/09/2017 3:00 PM Note Type: Progress Notes Status: Signed Helmet Coverer: MARTHA Enciso (Occupational Therapist) Occupational Therapy [facility] Physical Medicine and Rehabilitation Occupational Therapy Initial Evaluation Note Patient: José Miguel Keys [facility] Record Number: [id number] Date of : 1950 Age: 66 y.o. [...] Atrial fibrillation ??? CAD [place]coronary artery disease) [place], [place] 2010 ??? Chronic atrial [...] Type of Home: Facility (pt came from [place]) Prior Function: Level of [place]: Needs assistance with ADLs;Needs assistance with homemaking;Needs [...] treatment : 20 minutes;with fair + endurance Refinery Operator [employer]ization Plant Goal: Refinery Operator [employer]ization Plant Goal: Patient to discharge to appropriate next level of inpatient care. Plan: OT Frequency: 5 Times/Week If patient is discharged from the facility, this note serves as a discharge summary if further occupational therapy visits did not occur. Following therapy session, patient left in bed, with call light within reach and with RN, Jose L velásquez. Nicolas Fuentes OTR/L 09/09/2017 * Claire Marcum MD - 09/09/2017 1:35 PM CDT Progress Notes Signed by Beata Shafer PT on 09/09/2017 3:13 PM Author: Beata Shafer PT Service: (none) Author Type: Physical Therapist Date of Service: 09/09/2017 1:35 PM Filed: 09/09/2017 3:13 PM Note Type: Progress Notes Status: Signed Helmet Coverer: Beata Shafer PT (Physical Therapist) Physical Therapy [facility] Physical Medicine and Rehabilitation Physical Therapy Initial Evaluation Note Co-tx with OT and RT Patient: José Miguel Keys Med Record Number: [id number] Date of : 1950 Age: 66 y.o. [...] Atrial fibrillation ??? CAD (coronary artery disease) [place], last [place]ogram 2010 ??? Chronic atrial [...] of Home: Facility Prior Function: Level of [place]: Needs assistance with functional transfers Receives Help [...] Sit Edge of Bed: With minimal assist Refinery Operator [employer]ization Plant Goal(s): Care Home Goal: Patient to discharge to appropriate next level of inpatient care. Equipment Issued: none Plan: If patient is discharged from the facility, this note serves as a discharge summary if further physical therapy visits did not occur. Following therapy session, patient left in bed, with call light within reach, with family in room and with RN, Jose L velásquez. Beata Shafer PT 09/09/2017 * Claire Marcum MD - 09/09/2017 8:00 AM CDT Progress Notes Signed by Beata Shafer PT on 09/09/2017 8:00 AM Author: Beata Shafer PT Service: (none) Author Type: Physical Therapist Date of Service: 09/09/2017 8:00 AM Filed: 09/09/2017 8:00 AM Note Type: Progress Notes Status: Signed Helmet Coverer: Beata Shafer PT (Physical Therapist) Physical Therapy [facility] Department of Physical Medicine & Rehabilitation Progress [...] Per chart, pt intubated this a.m. Beata Shafer, PT 09/09/2017 8:00 AM * Vita Troncoso MD - 09/09/2017 7:39 AM CDT Progress Notes Signed by Vita Troncoso MD on 09/09/2017 4:53 PM Author: Vita Troncoso MD Service: Emergency Author Type: Resident Date of Service: 09/09/2017 7:39 AM Filed: 09/09/2017 4:53 PM Note Type: Progress Notes Status: Attested Helmet Coverer: Vita Troncoso MD (Resident) Cosigner: Jason Nash [...] Pulse: 94 88 79 92 Resp: 24 16 16 Temp: 97.8 ??F (36.6 ??C) [...] non-focal Data Review: CBC: Recent Labs 09/09/17 0422 09/07/17 0428 09/06/17 1157 WBC 18.9 H 10.1 27.8 H [...] 09/06/2017 ABG: Lab Results Component Value Date [id number] 45 09/09/2017 PO2ART 65 (L) 09/09/2017 [id number] 27.4 (H) 09/09/2017 Radiology: CXR this morning [...] Troncoso MD 09/09/2017 7:39 AM * Delphine Waddell, SILK BRUSHER-CUTTING TABLE OPERATOR FIRST - 09/09/2017 4:16 AM CDT Progress Notes Signed by Delphine Waddell NP on 09/09/2017 4:23 AM Author: Delphine Waddell NP Service: Medical ICU Author Type: Nurse Practitioner Date of Service: 09/09/2017 4:16 AM Filed: 09/09/2017 4:23 AM Note Type: Progress Notes Status: Signed Helmet Coverer: Delphine Waddell NP (Nurse Practitioner) Called by [...] Delphine Waddell NP Critical Care, MICU3 Ext [phone] * Claire Marcum MD - 09/08/2017 8:05 AM CDT Progress Notes Signed by MARTHA Newton on 09/08/2017 8:06 AM Author: MARTHA Newton Service: Physical Medicine and Rehabilitation Author Type: Occupational Therapist Date of Service: 09/08/2017 8:05 AM Filed: 09/08/2017 8:06 AM Note Type: Progress Notes Status: Signed Helmet Coverer: MARTHA Newton (Occupational Therapist) Occupational Therapy [facility] Department of Physical Medicine & Rehabilitation Progress Note Patient Name José Miguel Keys Date of 1950 Age 66 y.o. 09/08/17 0800 Missed Visit Missed Visit Physician Canrandy Called MD to inquire about activity order and MD states the patient is likely plugging again and has become hypoxic with questionable re-intubation or trach. Per MD (MICU 3), cancel therapy this date. Gabriela Isaacs OTR/Alissa 09/08/2017 8:06 AM * Vita Troncoso MD - 09/08/2017 7:21 AM CDT Progress Notes Signed by Vita Troncoso MD on 09/08/2017 1:57 PM Author: Vita Troncoso MD Service: Medical ICU Author Type: Resident Date of Service: 09/08/2017 7:21 AM Filed: 09/08/2017 1:57 PM Note Type: Progress Notes Status: Attested Helmet Coverer: Vita Troncoso MD (Resident) Cosigner: Jason Nash [...] ICU intubated and on low dose vasopressors / PSV trial, CT chest to eval L [...] ??C), Max:98.2 ??F (36.8 ??C) Input/Output 09/06 1901 - 09/08 0700 In: 1950 [I.V.:10] Out: [...] AAOx3, non-focal Data Review: CBC: Recent Labs 09/07/1742709/06/17 1157 WBC 10.1 27.8 H HGB 7.4 [...] 09/06/2017 ABG: Lab Results Component Value Date [id number] 47 (H) 09/06/2017 PO2ART 169 (H) 09/06/2017 ADA4NRM 27.0 (H) 09/06/2017 Radiology: CXR this morning [...] AM Note Type: Progress Notes Status: Signed Helmet Coverer: Kim Joshua RN (Registered Nurse) 0126 Patient states he is SOB and feels [...] PM Note Type: Progress Notes Status: Attested Helmet Coverer: Vita Troncoso MD (Resident) Related Notes: Original [...] 09/06/2017 ABG: Lab Results Component Value Date FKV2KFD 47 (H) 09/06/2017 PO2ART 169 (H) 09/06/2017 IGQ8PGO 27.0 (H) 09/06/2017 Radiology: CXR this morning [...] Status: full Disposition: continued ICU care * Provider, MD Claire - 09/07/2017 7:27 AM CDT Progress Notes Signed by Ирина Barrientos RD on 09/07/2017 8:29 AM Author: Ирина Barrientos RD Service: (none) Author Type: Cement Mason Maintenance Date of Service: 09/07/2017 7:27 AM Filed: 09/07/2017 8:29 AM Note Type: Progress Notes Status: Signed Helmet Coverer: Ирина Barrientos RD (Cement Mason Maintenance) Medical Nutrition Therapy Evaluation Nutrition Recommendations: Alter/change [...] 3.6 oz (113.5 kg) Estimated Needs: Calories: 9753-7464 kcals ([facility] 2010) vent/obese Protein: 135-165 g (1.8-2.2g/kg) ideal [...] AM Note Type: Progress Notes Status: Signed Helmet Coverer: Jay Lemon RN (Registered Nurse) At 0500, UOP has only been 35 for 2 hours. Rebecca Melendez NP notified. No increase in uop since 500 cc bolus administered. * Claire Marcum MD - 09/07/2017 5:25 AM CDT Progress Notes Signed by Chirag Schmitt RT on 09/07/2017 5:26 AM Author: Chirag Schmitt RT Service: (none) Author Type: Respiratory Therapist Date of Service: 09/07/2017 5:25 AM Filed: 09/07/2017 5:26 AM Note Type: Progress Notes Status: Signed Helmet Coverer: RT Niurka (Respiratory Therapist) Patient is excluded [...] AM Note Type: Progress Notes Status: Signed Helmet Coverer: Jay Lemon RN (Registered Nurse) Notified BELLA Fernandez, of patient's HR being anywhere from 115-120, a-fib. Also UOP for the last two hours has only been 35 ml. No new orders at this time. * Jaosn Nash MD - 09/06/2017 4:03 PM CDT Progress Notes Signed by Jason Nash MD on 09/07/2017 2:20 PM Author: Jason Nash MD Service: Pulmonary Critical Care Author Type: Physician Date of Service: 09/06/2017 4:03 PM Filed: 09/07/2017 2:20 PM Note Type: Progress Notes Status: Signed Helmet Coverer: Jason Nash MD (Physician) ICU progress Note: [...] PM Note Type: Progress Notes Status: Signed Helmet Coverer: RT Song (Respiratory Therapist) 09/06/17 1500 RT/ Bronch Procedure $ Bedside Bronch Flexible Bronchoscopy Procedures Flexible Bronchoscopy Pre-Procedure Diagnosis Pre Procedure LOC: Sedated Procedure Checks Consent signed?;NPO checked? Pacemaker/ AICD? No Procedure details Procedure start time: 1330 Scope in time: 133 Bronchoscopy Route: ETT ETT Size: 8.0 Post Procedure Dx Post Procedure LOC: Other? (Comment) (sedated) Restart Vitals Timer Yes Scope Number: disp Scope out time: 1356 Procedure ends: 1356 Report given to: RN Assisted with bedside bronchoscopy. Reading protocol checklist completed prior to procedure with [...] Specimens prepared and sent to Lab by Bronch Staff. * Claire Marcum MD - 09/06/2017 12:03 PM CDT Progress Notes Signed by CHRIS Littlejohn on 09/06/2017 12:06 PM Author: CHRIS Litteljohn Service: (none) Author Type: Tree And Shrub Technician Date of Service: 09/06/2017 12:03 PM Filed: 09/06/2017 12:06 PM Note Type: Progress Notes Status: Signed Helmet Coverer: CHRIS Littlejohn (Tree And Shrub Technician) READMISSION NOTE: ?? Pt readmitted to [facility] within 30 days. Pt transferred from [facility] to [facility]. Below assessment was completed with pt and [...] was completed with pt's , Francia Keys [phone], at bedside. ? Admitting Diagnosis: Sepsis ? Pt readmitted with in 30 days: No ?Primary Care Doctor: Dr. Mau Medeiros [phone], last saw this physician three months ago. ? Prior Ability to perform ADL???s: Independent ? Anticipated Changes in performance of ADLS: PT/OT recommending SNF placement. Pt and are agreeable to recommendations and would like referrals submitted to [facility] and [facility] [place]. SW to submit referrals. ? Communication of Needs:??Greek, self, A&Ox4? Medication Management: Uses [facility] in [place] ([phone]) ? Current Living Situation: Pt lives with his in their multi level home. There are 14 steps witha railing on one side to enter the home. ? Current Support System:??Francia Keys () [phone] ? Power of Qc Chemist or Guardian: No ? Financial: Retired, insured through Medicare and [employer] ? Transportation: Will have a ride home [...] Other Healthcare Applications Active with Medicare and [employer] Substance Abuse Assessment and Treatment plan N/A Social Work referral for skilled placement needs Referrals submitted to [facility] and [facility] Other: Pt is a ? Case Management [...] Best??address and??telephone # for Patient: ? [address] [place] [address] ? Insurance and demographics verified with patient. [...] bolus 2 g Intravenous Once Delphine Waddell APRN-JEANNIE ??? ceFAZolin (ANCEF) syringe 2,000 mg 2 [...] mcgat 09/15/17 0219 ??? *Hold/Avoid Medication Other 799 and 1999 Vita Troncoso MD ??? lidocaine 1% - EPINEPHrine 1:100,000 injection PRN Moise Castaneda MD 2.5 mL at 09/13/17 1710 ??? senna (SENOKOT) tablet 8.6 mg 8.6 mg Enteral Tube BID Delphine Waddell APRN- CUTTING TABLE OPERATOR FIRST 8.6 mg at 09/14/17 2044 ??? polyethylene glycol 3350 (MIRALAX) packet 17 g 17 g Enteral Tube QDAY PRN Delphine Waddell APRN-CUTTING TABLE OPERATOR FIRST 17 g at 09/11/17 0842 ??? docusate sodium (COLACE) solution 100 mg 100 mg Enteral Tube QDAY Delphine Waddell APRN-CUTTING TABLE OPERATOR FIRST 100mg at 09/14/17 0841 ??? lidocaine (LIDODERM) 5 % patch 1 patch 1 patch Transdermal QDAY Delphine Waddell APRN-CUTTING TABLE OPERATOR FIRST 1 patch at 09/14/17 0840 ??? albuterol [...] BID Jason Nash MD 20 mg at 09/14/174 ??? glucose (Diabetic Use) oral gel 15-30 [...] Pain assessment: None Sedation Assessment & Plan: [place] [employer] Anesthesiologists Classification (PRE-PROCEDURE): ASA 3 [...] 5:06 PM Note Type: H&P Status: Attested Helmet Coverer: Vita Troncoso MD (Resident) Cosigner: Jason Nash [...] osteomyelitis of L1/L2 and DVT Transferred from [facility] facility for hypoxia. Patient with recent hospital [...] Atrial fibrillation ??? CAD (coronary artery disease) [place] 1981, last angiogram 2010 ??? Chronic atrial [...] area twice daily as needed ??? ergocalciferol 25501 UNITS Cap Take 50,000 Units by mouth [...] DAY NEEDED 0 ??? Vitamin D, Ergocalciferol, 02579 UNITS Cap Take 1 capsule by mouth [...] Recent Labs 09/06/17 1211 PO2ART 152 H HPH0JPW 55 H KHY9DTE 25.0 Urine Studies: Lab Results Component Value [...] 2:54 PM Note Type: Procedures Status: Attested Helmet Coverer: Veronica Costello MD (Resident) Related Notes: Original [...] 4:14 AM Note Type: Procedures Status: Signed Helmet Coverer: Ivonne Rubin MD (Resident) Cosigner: Jason Nash [...] 09/08/2017 12:00 PM CDT Procedures Signed by Veronica Costello MD on 09/08/2017 5:08 PM Author: Veronica Costello MD Service: Pulmonary Critical Care Author Type: Resident Date of Service: 09/08/2017 12:00 PM Filed: 09/08/2017 5:08 PM Note Type: Procedures Status: Attested Helmet Coverer: Veronica Costello MD (Resident) Cosigner: Jason Nash MD at 09/08/2017 9:56 PM Procedures: 1. CHEST TUBE INSERTION [[id number] (Custom)] Attestation signed by Jason Nash MD [...] over the guidewire and removed. A 14 Montserratian tube was placed in the left lateral [...] of Pulmonary, Critical Care, & Sleep Medicine [facility] Pager: [phone] * Veronica Costello MD - 09/06/2017 2:10 PM CDT Procedures Signed by Veronica Costello MD on 09/06/2017 5:11 PM Author: Veronica Costello MD Service: Pulmonary Critical Care Author Type: Resident Date of Service: 09/06/2017 2:10 PM Filed: 09/06/2017 5:11 PM Note Type: Procedures Status: Attested Helmet Coverer: Veronica Costello MD (Resident) Related Notes: Original [...] of L1/L2 who has been staying at [facility] completing IV antibx for prior bacteremia with [...] by mouth DAILY. Disp: Rfl: ergocalciferol (DRISDOL) 84587 UNITS capsule Take 50,000 Units by mouth [...] Disp: Rfl: 0 vitamin D, ergocalciferol, (DRISDOL) 82556 UNITS capsule Take 1 capsule by mouth [...] concerns. Vira Wilson MD Gastroenterology Fellow Pager: [phone] Associated attestation - Elizabeth Lee MD - 09/14/2017 8:07 PM CDT [facility] GI Attending José Miguel Keys is a 66 y.o. male who was seen and examined with the GI fellow 09/14/2017. I agree with their note attached. In addition, I note patient with complex recent medical illness, including hypoxic respiratory failure. Status post trach and in need of half-way nutrition for rehab as he is unable [...] Feeding difficulties in adult with need for skilled nursing nutrition. 2. Daily ASA 3. On ceftaroline [...] 4:42 PM Note Type: Consults Status: Attested Helmet Coverer: Vibha Benites MD (Resident) Cosigner: Elisabet Jones [...] intubation. CXR at that time showed opacified left thorax. A bronchoscopy was performed with partial resolution consistent with mucus plug. He currently is under less distress, extubated on ventimask 40%. Previous recommendations included thoracentesis, pigtail placement by IR or MICU with cultures/studies. These studies have not shown an exudate orinfectious process to this point. ?? Past Medical History: Past Medical History: Diagnosis Date ??? PAYTON (acute kidney injury) ??? Asthma ??? Atrial fibrillation ??? CAD (coronary artery disease) [place] 1981, last angiogram 2010 ??? Chronic atrial [...] syringe 10 mL 10 mL Intravenous FLUSH PRN Vita Troncoso MD ??? chlorhexidine (PERIDEX) 0.12 % [...] % injection 25 mL 25 mL Intravenous PRJarred Troncoso MD ??? dextrose 50 % injection 50 mL 50 mL Intravenous PRN Vita Troncoso MD ??? glucagon (rDNA) (GLUCAGEN) injection 1 mg 1 mg Intramuscular PRN Vita Troncoso MD ??? insulin regular (HUMULIN,NOVOLIN) injection 0-6 Units 0-6 Units Subcutaneous Q6HR Vita Troncoso MD 1 Units at 09/07/17 0535 ??? amiodarone (PACERONE) tablet 200 mg 200 mg Feeding Tube BID Rebecca Melendez RECORD LABEL INTERN 200 mg at 09/07/17 0840 Allergies: Allergies [...] History Encounter [place] war Review of Systems AMARI / resp status Physical Examination: Patient Vitals for [...] 6:43 PM CDT José Miguel Keys 1950 [id number] Date of Procedure: 09/13/2017 Pre-Op Diagnosis: Ventilator dependency; Prolonged endotracheal intubation Post-Op Diagnosis: Same Procedure: Tracheostomy w/ skin fenestration, CPT code 28310 Surgeon: Duke Castaneda MD Resident: Leslye Wood [...] tested for defects and nonewere found. The coding auditor withdrew the endotracheal tube under direct visualization [...] tolerated the procedure without difficulty. Dr. Castaneda was present for the entirety of this case. Estimated [...] Note Type: ED Provider Notes Status: Signed Helmet Coverer: Bandar Mansfield MD (Physician) [facility] eMERGENCY dEPARTMENT eNCOUnter ATTENDING PHYSICIAN NOTE HISTORICAL INFORMATION Primary Care Doctor: Mau Medeiros Patient information was obtained primarily from the patient, nursing notes, records History/Exam limitations: clinical condition. Time of evaluation: 11:21AM CHIEF COMPLAINT Shortness of Breath HPI José Miguel Keys is a 66 y.o. male with a past medical history of DM, asthma, A- fib, HTN, COPD, and VA who arrived to the ED via EMS at 11:21AM for severe repiratory distress. Patient was placed on CPAP per EMS en route, satting at 75%. HPI limited and obtained per EMS 2/2 acuity of medical condition. PAST MEDICAL HISTORY Past Medical History: Diagnosis Date ??? PAYTON (acute kidney injury) ??? Asthma ??? Atrial fibrillation ??? CAD (coronary artery disease) [place] 1981, last angiogram 2010 ??? Chronic atrial [...] the esophagus and tips are off the awkik-ia-elin. There is a moderate left pleural effusion, intervally decreased. There is a small right pleural effusion, unchanged. There are bilateral interstitial and airspace opacities likely representing pulmonary edema or pneumonia. No pneumothorax is identified. The cardiac silhouette is partly obscured. Report dictated by Rohan Hopkins M.D. (resident physician). I, Dr. SILAS NGUYỄN MD have personally [...] in the appropriate position and an 18 Montserratian nasogastric tube waslubricated with water soluble lubricant [...] the presence of Dr. Mansfield. Signed: Piyush rPo. Date: 09/06/2017. Time: 5:13 PM. Bandar Mansfield M.D. Emergency Medicine Physician Bandar Mansfield MD 09/06/17 1720 documented in this encounter Plan of Treatment Upcoming Encounters Date Type Department Care Team (Late st Contact Info) Description 07/09/2024 12:30 PM DATA SCIENCE AND IOT MANAGER Office Visit [facility] - GI [address] [facility], [place] [address] Twin Miller MD [facility] DIV [place] [address] 09/19/2024 2:00 PM CDT Office Visit [facility] - Orthopedic Surgery [address] [place] [place] [address] Larry Alexander MD [address] [facility] [address] [place] [address] Pending Results Name Type Priority Associated Diagnoses [...] GLUCOSE - POINT OF CARE Routine 09/20/19 18 2:45 AM CDT RBC MORPHOLOGY AM Draw [...] GLUCOSE - POINT OF CARE Routine 09/16/19 18 2:23 AM CDT GLUCOSE - POINT OF CARE Routine 09/15/19 18 7:45 PM CDT GLUCOSE - POINT OF CARE Routine 09/15/19 18 6:27 PM CDT GLUCOSE - POINT OF CARE Routine 09/15/19 18 12:46 PM CDT GLUCOSE - POINT OF CARE Routine 09/15/19 18 6:34 AM CDT XR CHEST 1VW PORTABLE [...] GLUCOSE - POINT OF CARE Routine 09/15/19 12:20 AM CDT XR ABDOMEN KUB STAT 09/13/2017 7:16 PM CDT Uses feeding tube GLUCOSE - POINT OF CARE Routine 09/14/19 6:45 PM CDT GLUCOSE - POINT OF CARE Routine 09/14/19 11:14 AM CDT GLUCOSE - POINT OF CARE Routine 09/14/19 7:02 AM CDT XR CHEST 1VW PORTABLE Routine 09/13/2017 5:20 AM CDT Hypoxemia Pleural effusion, not elsewhere classified RBC MORPHOLOGY AM Draw 09/13/2017 5:17 AM CDT CBC W AUTO DIFFERENTIAL AM Draw 09/14/19 5:17 AM CDT BASIC METABOLIC PANEL (CALCI [...] CDT CBC W AUTO DIFFERENTIAL STAT 09/07/19 11:57 AM CDT XR CHEST 1VW PORTABLE [...] POINT OF CARE (09/19/2017 2:45 AM CDT) [facility] Glucose WB/POC 181(H) 70 - 115 mg/dL 09/19/2017 2:59 AM CDT [facility] Blood BLOOD SPECIMEN / Unknown 09/19/2017 2:45 AM CDT 09/19/2017 2:59 AM CDT Narrative [facility] - 09/19/2017 2:59 AM CDT Polytechnic Registrar: GONZALEZ ??MALAIKA Jason Nash MD LAB - POINT OF CARE ORDERABLES Performing Organization Address [facility] Co de Phone Number [address] [phone] * (ABNORMAL) RBC MORPHOLOGY (09/19/2017 2:43 AM CDT) Platelet Estimate Adequate Adequate 09/19/2017 5:26 AM CDT [facility] Anisocytosis 1+(A) None 09/19/2017 5:26 AM CDT [facility] Microcytes Few(A) None 09/19/2017 5:26 AM CDT [facility] Macrocytosis 1+(A) None 09/19/2017 5:26 AM CDT [facility] Hypochromia 1+(A) None 09/19/2017 5:26 AM CDT [facility] Schistocytes Occasional(A ) None 09/19/2017 5:26 AM CDT [facility] Ovalocytes 1+(A) None 09/19/2017 5:26 AM CDT [facility] Blood BLOOD SPECIMEN / Unknown Venipuncture / Unknown 09/19/2017 2:43 AM CDT 09/19/2017 3:39 AM CDT Rebecca Melendez SILK BRUSHER-CUTTING TABLE OPERATOR FIRST LAB - HEMATOLOGY ORDERABLES Performing Organization Address [facility] Co de Phone Number [address] [phone] * MAGNESIUM BLOOD (09/19/2017 2:43 AM CDT) Magnesium 1.7 1.6 - 2.6 mg/dL 09/19/2017 4:19 AM CDT [facility] Blood BLOOD SPECIMEN / Unknown Venipuncture / Unknown 09/19/2017 2:43 AM CDT 09/19/2017 3:39 AM CDT Rebecca Melendez SILK BRUSHER-CUTTING TABLE OPERATOR FIRST LAB - CHEMISTRY O RDERABLES [facility] [address] [phone] * (ABNORMAL) CBC W AUTO DIFFERENTIAL (09/19/2017 2:43 AM CDT) WBC 8.5 3.5 - 10.5 10? 3 /uL 09/19/2017 4:25 AM [facility] RBC 2.85(L) 4.30 - 5.70 10? 6 /uL 09/19/2017 4:25 AM [facility] Hemoglobin 8.1(L) 13.5 - 17.5 g/dL 09/19/2017 4:25 AM [facility] Hematocrit 28.0(L) 39.0 - 50.0 % 09/19/2017 4:25 AM [facility] MCV 98.2(H) 81.0 - 97.0 fL 09/19/2017 4:25 AM [facility] MCH 28.4 28.0 - 34.0 pg 09/19/2017 4:25 AM [facility] MCHC 28.9(L) 32.0 - 36.0 g/dL 09/19/2017 4:25 AM [facility] Platelet Count 208 150 - 400 10? 3 /uL 09/19/2017 4:25 AM [facility] RDW-SD 76.4(H) 36.0 - 50.0 fL 09/19/2017 4:25 AM [facility] RDW-CV 21.3(H) 11.2 - 14.8 % 09/19/2017 4:25 AM [facility] MPV 13.4(H) 9.3 - 12.8 fL 09/19/2017 4:25 AM [facility] Neutrophils % 79.2(H) 35.0 - 70.0 % 09/19/2017 4:25 AM [facility] Lymphocytes % 9.5(L) 19.7 - 55.1 % 09/19/2017 4:25 AM [facility] Monocytes % 6.7 3.0 - 15.0 % 09/19/2017 4:25 AM [facility] Eosinophils % 4.4 0.0 - 6.0 % 09/19/2017 4:25 AM [facility] Basophil % 0.2 0.0 - 1.5 % 09/19/2017 4:25 AM [facility] Neutrophils Absolute 6.8 1.6 - 7.0 10? 3 /uL 09/19/2017 4:25 AM [facility] Lymphocyte Absolute 0.8 0.8 - 2.9 10? 3 /uL 09/19/2017 4:25 AM [facility] Monocytes Absolute 0.57 0.14 - 0.66 10? 3 /uL 09/19/2017 4:25 AM [facility] Eosinophils Absolute 0.38(H) 0.00 - 0.22 10? 3 /uL 09/19/2017 4:25 AM [facility] Basophils Absolute 0.02 0.00 - 0.06 10? 3 /uL 09/19/2017 4:25 AM [facility] Reflex Status Morphology review to follow. 09/19/2017 4:25 AM [facility] Immature Granulocytes % 0.5 0.0 - 1.0 % 09/19/2017 4:25 AM [facility] Blood BLOOD SPECIMEN / Unknown Venipuncture / Unknown 09/19/2017 2:43 AM CDT 09/19/2017 3:39 AM CDT Rebecca Melendez SILK BRUSHER-CUTTING TABLE OPERATOR FIRST LAB - HEMATOLOGY ORDERABLES Performing Organization Address [facility]/State/[facility] Co de Phone Number [address] [phone] * (ABNORMAL) BASIC METABOLIC PANEL (CALCIUM TOTAL) (09/19/2017 2:43 AM CDT) BUN 26 7 - 26 mg/dL 09/19/2017 4:19 AM [facility] Creatinine 0.6 0.6 - 1.2 mg/dL 09/19/2017 4:19 AM [facility] Sodium 138 136 - 145 mmol/L 09/19/2017 4:19 AM [facility] Potassium 4.9(H) 3.5 - 4.5 mmol/L 09/19/2017 4:19 AM [facility] Chloride 98 98 - 107 mmol/L 09/19/2017 4:19 AM [facility] CO2 34(H) 22 - 29 mmol/L 09/19/2017 4:19 AM [facility] Glucose 153(H) 70 - 115 mg/dL 09/19/2017 4:19 AM [facility] Calcium 9.1 8.4 - 10.2 mg/dL 09/19/2017 4:19 AM [facility] Anion Gap 11 8 - 18 09/19/2017 4:19 AM [facility] BUN/Creatinine Ratio 43(H) 7 - 23 09/19/2017 4:19 AM [facility] Osmolality Calculated 294 270 - 300 mOsm/kg 09/19/2017 4:19 AM [facility] eGFR >60 >60 mL/min/1.7 3 m2 09/19/2017 4:19 AM [facility] Blood BLOOD SPECIMEN / Unknown Venipuncture / Unknown 09/19/2017 2:43 AM CDT 09/19/2017 3:39 AM CDT Rebecca Melendez SILK BRUSHER-CUTTING TABLE OPERATOR FIRST LAB - CHEMISTRY O RDERABLES Performing Organization Address City/[facility]/ZIP Co de Phone Number [address] [phone] * PHOSPHORUS BLOOD (09/19/2017 2:43 AM CDT) Phosphorus 2.5 2.3 - 4.7 mg/dL 09/19/2017 4:19 AM T [facility] Blood BLOOD SPECIMEN / Unknown Venipuncture / Unknown 09/19/2017 2:43 AM CDT 09/19/2017 3:39 AM CDT Rebecca Melendez SILK BRUSHER-CUTTING TABLE OPERATOR FIRST LAB - CHEMISTRY O RDERABLES Performing Organization Address City/[facility]/ZIP Co de Phone Number [address] [phone] * (ABNORMAL) GLUCOSE - POINT OF CARE (09/18/2017 4:50 PM CDT) Glucose WB/POC 140(H) 70 - 115 mg/dL 09/18/2017 5:04 PM CDT [facility] Blood BLOOD SPECIMEN / Unknown 09/18/2017 4:50 PM CDT 09/18/2017 5:04 PM CDT Narrative [facility] - 09/18/2017 5:04 PM CDT Polytechnic Registrar: SMITH ??NOA Jason Nash MD LAB - POINT OF CARE ORDERABLES [address] [phone] * XR CHEST 1VW PORTABLE (09/18/2017 2:45 [...] - 115 mg/dL 09/18/2017 1:13 PM CDT [facility] Blood BLOOD SPECIMEN / Unknown 09/18/2017 1:00 PM CDT 09/18/2017 1:13 PM CDT Narrative [facility] - 09/18/2017 1:13 PM CDT Polytechnic Registrar: SMITH ??NOA Jason Nash MD LAB - POINT OF CARE ORDERABLES Performing Organization Address City/[facility]/ZIP Co de Phone Number [address] [phone] * MAGNESIUM BLOOD (09/18/2017 11:04 AM CDT) Magnesium 2.6 1.6 - 2.6 mg/dL 09/18/2017 11:39 AM CDT [facility] Blood BLOOD SPECIMEN / Unknown Venipuncture / Unknown 09/18/2017 11:04 AM CDT 09/18/2017 11:06 AM CDT Jason Nash MD LAB - CHEMISTRY ORDE RABLES [address] [phone] * PHOSPHORUS BLOOD (09/18/2017 12:03 AM CDT) Phosphorus 2.8 2.3 - 4.7 mg/dL 09/18/2017 12:48 AM CDT [facility] Blood BLOOD SPECIMEN / Unknown Lab Venipuncture / Unknown 09/18/2017 12:03 AM CDT 09/18/2017 12:03 AM CDT Rebecca Pandaple SILK BRUSHER-CUTTING TABLE OPERATOR FIRST LAB - CHEMISTRY O RDERABLES [address] [phone] * MAGNESIUM BLOOD (09/18/2017 12:03 AM CDT) Magnesium 2.0 1.6 - 2.6 mg/dL 09/18/2017 12:48 AM [facility] Blood BLOOD SPECIMEN / Unknown Lab Venipuncture / Unknown 09/18/2017 12:03 AM CDT 09/18/2017 12:03 AM CDT Rebecca Pandaple [employer] OPERATOR FIRST LAB - CHEMISTRY O RDERABLES Performing Organization Address City/[facility]/ZIP Co de Phone Number [address] [phone] * (ABNORMAL) CBC W AUTO DIFFERENTIAL (09/18/2017 12:03 AM CDT) WBC 8.7 3.5 - 10.5 10? 3 /uL 09/18/2017 12:31 AM [facility] RBC 3.09(L) 4.30 - 5.70 10? 6 /uL 09/18/2017 12:31 AM [facility] Hemoglobin 8.8(L) 13.5 - 17.5 g/dL 09/18/2017 12:31 AM [facility] Hematocrit 29.6(L) 39.0 - 50.0 % 09/18/2017 12:31 AM [facility] MCV 95.8 81.0 - 97.0 fL 09/18/2017 12:31 AM [facility] MCH 28.5 28.0 - 34.0 pg 09/18/2017 12:31 AM [facility] MCHC 29.7(L) 32.0 - 36.0 g/dL 09/18/2017 12:31 AM [facility] Platelet Count 199 150 - 400 10? 3 /uL 09/18/2017 12:31 AM [facility] RDW-SD 76.1(H) 36.0 - 50.0 fL 09/18/2017 12:31 AM [facility] RDW-CV 21.4(H) 11.2 - 14.8 % 09/18/2017 12:31 AM [facility] MPV 13.3(H) 9.3 - 12.8 fL 09/18/2017 12:31 AM [facility] Neutrophils % 79.2(H) 35.0 - 70.0 % 09/18/2017 12:31 AM [facility] Lymphocytes % 10.1(L) 19.7 - 55.1 % 09/18/2017 12:31 AM [facility] Monocytes % 7.4 3.0 - 15.0 % 09/18/2017 12:31 AM [facility] Eosinophils % 3.1 0.0 - 6.0 % 09/18/2017 12:31 AM [facility] Basophil % 0.2 0.0 - 1.5 % 09/18/2017 12:31 AM [facility] Neutrophils Absolute 6.9 1.6 - 7.0 10? 3 /uL 09/18/2017 12:31 AM [facility] Lymphocyte Absolute 0.9 0.8 - 2.9 10? 3 /uL 09/18/2017 12:31 AM [facility] Monocytes Absolute 0.64 0.14 - 0.66 10? 3 /uL 09/18/2017 12:31 AM [facility] Eosinophils Absolute 0.27(H) 0.00 - 0.22 10? 3 /uL 09/18/2017 12:31 AM [facility] Basophils Absolute 0.02 0.00 - 0.06 10? 3 /uL 09/18/2017 12:31 AM [facility] Immature Granulocytes % 0.3 0.0 - 1.0 % 09/18/2017 12:31 AM [facility] Blood BLOOD SPECIMEN / Unknown Lab Venipuncture / Unknown 09/18/2017 12:03 AM T 09/18/2017 12:03 AM CDT Rebecca Pandaple [employer]TING TABLE OPERATOR [facility] - HEMATOLOGY ORDERABLES [address] [phone] * (ABNORMAL) BASIC METABOLIC PANEL (CALCIUM TOTAL) (09/18/2017 12:03 AM CDT) BUN 25 7 - 26 mg/dL 09/18/2017 12:48 AM [facility] Creatinine 0.6 0.6 - 1.2 mg/dL 09/18/2017 12:48 AM [facility] Sodium 140 136 - 145 mmol/L 09/18/2017 12:48 AM [facility] Potassium 3.4(L) 3.5 - 4.5 mmol/L 09/18/2017 12:48 AM [facility] Chloride 95(L) 98 - 107 mmol/L 09/18/2017 12:48 AM [facility] CO2 35(H) 22 - 29 mmol/L 09/18/2017 12:48 AM [facility] Glucose 135(H) 70 - 115 mg/dL 09/18/2017 12:48 AM [facility] Calcium 9.0 8.4 - 10.2 mg/dL 09/18/2017 12:48 AM [facility] Anion Gap 13 8 - 18 09/18/2017 12:48 AM [facility] BUN/Creatinine Ratio 42(H) 7 - 23 09/18/2017 12:48 AM [facility] Osmolality Calculated 296 270 - 300 mOsm/kg 09/18/2017 12:48 AM [facility] eGFR >60 >60 mL/min/1.7 3 m2 09/18/2017 12:48 AM [facility] Blood BLOOD SPECIMEN / Unknown Lab Venipuncture / Unknown 09/18/2017 12:03 AM CDT 09/18/2017 12:03 AM CDT Rebecca Pandaple [employer]TING TABLE OPERATOR [facility] [place] [address], [place] [phone] * (ABNORMAL) GLUCOSE - POINT OF CARE (09/17/2017 7:18 PM CDT) Glucose WB/POC 157(H) 70 - 115 mg/dL 09/17/2017 7:31 PM CDT [facility] Blood BLOOD SPECIMEN / Unknown 09/17/2017 7:18 PM CDT 09/17/2017 7:31 PM CDT Narrative [facility] - 09/17/2017 7:31 PM CDT Polytechnic Registrar: SLACK ??QUE Jason aNsh MD LAB - POINT OF CARE ORDERABLES [address] [phone] * (ABNORMAL) GLUCOSE - POINT OF CARE (09/17/2017 12:04 PM CDT) Glucose WB/POC 164(H) 70 - 115 mg/dL 09/17/2017 12:24 PM CDT [facility] Blood BLOOD SPECIMEN / Unknown 09/17/2017 12:04 PM CDT 09/17/2017 12:23 PM CDT [facility] - 09/17/2017 12:24 PM CDT Polytechnic Registrar: SLACK ??QUE Jason Nash MD LAB - POINT OF CARE ORDERABLES [address] [phone] * (ABNORMAL) RBC MORPHOLOGY (09/17/2017 4:33 AM CDT) Platelet Estimate Adequate Adequate 09/17/2017 5:55 AM CDT [facility] Microcytes 1+(A) None 09/17/2017 5:55 AM CDT [facility] Hypochromia 1+(A) None 09/17/2017 5:55 AM CDT [facility] Ovalocytes 1+(A) None 09/17/2017 5:55 AM [facility] Blood BLOOD SPECIMEN / Unknown Venipuncture / Unknown 09/17/2017 4:33 AM CDT 09/17/2017 4:42 AM CDT Rebecca L Orthodox [facility] LAB - HEMATOLOGY ORDERABLES Performing Organization Address [facility] Co de Phone Number [address] [phone] * MAGNESIUM BLOOD (09/17/2017 4:33 AM CDT) Pathologist [facility] Magnesium 1.9 1.6 - 2.6 mg/dL 09/17/2017 5:16 AM [facility] Blood BLOOD SPECIMEN / Unknown Venipuncture / Unknown 09/17/2017 4:33 AM CDT 09/17/2017 4:42 AM CDT Rebecca Melendez [facility] LAB - CHEMISTRY O RDERABLES Performing Organization Address City/[facility]/ZIP Co de Phone Number [address] [phone] * (ABNORMAL) CBC W AUTO DIFFERENTIAL (09/17/2017 4:33 AM CDT) WBC 8.1 3.5 - 10.5 10? 3 /uL 09/17/2017 5:05 AM [facility] RBC 3.04(L) 4.30 - 5.70 10? 6 /uL 09/17/2017 5:05 AM [facility] Hemoglobin 8.7(L) 13.5 - 17.5 g/dL 09/17/2017 5:05 AM [facility] Hematocrit 29.2(L) 39.0 - 50.0 % 09/17/2017 5:05 AM [facility] MCV 96.1 81.0 - 97.0 fL 09/17/2017 5:05 AM [facility] MCH 28.6 28.0 - 34.0 pg 09/17/2017 5:05 AM [facility] MCHC 29.8(L) 32.0 - 36.0 g/dL 09/17/2017 5:05 AM [facility] Platelet Count 182 150 - 400 10? 3 /uL 09/17/2017 5:05 AM [facility] RDW-SD 76.7(H) 36.0 - 50.0 fL 09/17/2017 5:05 AM [facility] RDW-CV 21.9(H) 11.2 - 14.8 % 09/17/2017 5:05 AM [facility] MPV 13.6(H) 9.3 - 12.8 fL 09/17/2017 5:05 AM [facility] Neutrophils % 78.7(H) 35.0 - 70.0 % 09/17/2017 5:05 AM [facility] Lymphocytes % 10.7(L) 19.7 - 55.1 % 09/17/2017 5:05 AM [facility] Monocytes % 8.0 3.0 - 15.0 % 09/17/2017 5:05 AM [facility] Eosinophils % 2.1 0.0 - 6.0 % 09/17/2017 5:05 AM [facility] Basophil % 0.5 0.0 - 1.5 % 09/17/2017 5:05 AM [facility] Neutrophils Absolute 6.4 1.6 - 7.0 10? 3 /uL 09/17/2017 5:05 AM [facility] Lymphocyte Absolute 0.9 0.8 - 2.9 10? 3 /uL 09/17/2017 5:05 AM [facility] Monocytes Absolute 0.65 0.14 - 0.66 10? 3 /uL 09/17/2017 5:05 AM [facility] Eosinophils Absolute 0.17 0.00 - 0.22 10? 3 /uL 09/17/2017 5:05 AM [facility] Basophils Absolute 0.04 0.00 - 0.06 10? 3 /uL 09/17/2017 5:05 AM [facility] Immature Granulocytes % 0.5 0.0 - 1.0 % 09/17/2017 5:05 AM [facility] Blood BLOOD SPECIMEN / Unknown Venipuncture / Unknown 09/17/2017 4:33 AM CDT 09/17/2017 4:42 AM CDT Rebecca Maxwell Orthodox [facility] LAB - HEMATOLOGY ORDERABLES [facility] [address] [phone] * (ABNORMAL) BASIC METABOLIC PANEL (CALCIUM TOTAL) (09/17/2017 4:33 AM CDT) BUN 19 7 - 26 mg/dL 09/17/2017 5:16 AM [facility] Creatinine 0.6 0.6 - 1.2 mg/dL 09/17/2017 5:16 AM [facility] Sodium 139 136 - 145 mmol/L 09/17/2017 5:16 AM [facility] Potassium 3.6 3.5 - 4.5 mmol/L 09/17/2017 5:16 AM [facility] Chloride 96(L) 98 - 107 mmol/L 09/17/2017 5:16 AM [facility] CO2 32(H) 22 - 29 mmol/L 09/17/2017 5:16 AM [facility] Glucose 120(H) 70 - 115 mg/dL 09/17/2017 5:16 AM [facility] Calcium 8.8 8.4 - 10.2 mg/dL 09/17/2017 5:16 AM [facility] Anion Gap 15 8 - 18 09/17/2017 5:16 AM [facility] BUN/Creatinine Ratio 32(H) 7 - 23 09/17/2017 5:16 AM [facility] Osmolality Calculated 291 270 - 300 mOsm/kg 09/17/2017 5:16 AM [facility] eGFR >60 >60 mL/min/1.7 3 m2 09/17/2017 5:16 AM [facility] Blood BLOOD SPECIMEN / Unknown Venipuncture / Unknown 09/17/2017 4:33 AM CDT 09/17/2017 4:42 AM CDT Rebecca L Orthodox [employer]TING TABLE OPERATOR [facility] - CHEMISTRY O RDERABLES [address] [phone] * PHOSPHORUS BLOOD (09/17/2017 4:33 AM CDT) Phosphorus 3.2 2.3 - 4.7 mg/dL 09/17/2017 5:16 AM CDT [facility] Blood BLOOD SPECIMEN / Unknown Venipuncture / Unknown 09/17/2017 4:33 AM CDT 09/17/2017 4:42 AM CDT Rebecca Melendez [employer]CUTTING TABLE OPERATOR [facility] - CHEMISTRY O RDERABLES Performing Organization Address City/[facility]/ZIP Co de Phone Number [address] [phone] * GLUCOSE - POINT OF CARE (09/16/2017 11:18 PM CDT) Glucose WB/POC 111 70 - 115 mg/dL 09/16/2017 11:32 PM CDT [facility] Blood BLOOD SPECIMEN / Unknown 09/16/2017 11:18 PM CDT 09/16/2017 11:32 PM CDT Narrative [facility] - 09/16/2017 11:32 PM CDT Polytechnic Registrar: AMY ??CHRISTIANO Jason Nash MD LAB - POINT OF CARE ORDERABLES Performing Organization Address [facility]/ZIP Co de Phone Number [address] [phone] * GLUCOSE - POINT OF CARE (09/16/2017 6:41 PM CDT) Glucose WB/POC 98 70 - 115 mg/dL 09/16/2017 6:55 PM CDT [facility] Blood BLOOD SPECIMEN / Unknown 09/16/2017 6:41 PM CDT 09/16/2017 6:55 PM CDT Narrative [facility] - 09/16/2017 6:55 PM CDT Polytechnic Registrar: SG ??JOSE L Jason Nash MD LAB - POINT OF CARE ORDERABLES Performing Organization Address [facility]/ZIP Co de Phone Number [address] [phone] * GLUCOSE - POINT OF CARE (09/16/2017 12:22 PM CDT) Glucose WB/POC 91 70 - 115 mg/dL 09/16/2017 12:35 PM CDT [facility] Blood BLOOD SPECIMEN / Unknown 09/16/2017 12:22 PM CDT 09/16/2017 12:35 PM CDT Narrative [facility] - 09/16/2017 12:35 PM CDT Polytechnic Registrar: CHELA ??GLADYS Jason Nash MD LAB - POINT OF CARE ORDERABLES Performing Organization Address [facility] Co de Phone Number [address] [phone] * GLUCOSE - POINT OF CARE (09/16/2017 5:56 AM CDT) Glucose WB/POC 79 70 - 115 mg/dL 09/16/2017 6:10 AM CDT [facility] Blood BLOOD SPECIMEN / Unknown 09/16/2017 5:56 AM CDT 09/16/2017 6:10 AM CDT Narrative [facility] - 09/16/2017 6:10 AM CDT Polytechnic Registrar: LYUBOV ?MARCOS Jason Nash MD LAB - POINT OF CARE ORDERABLES Performing Organization Address [facility]/ZIP Co de Phone Number [address] [phone] * (ABNORMAL) RBC MORPHOLOGY (09/16/2017 4:13 AM CDT) Platelet Estimate Adequate Adequate 09/16/2017 5:12 AM CDT [facility] Anisocytosis 1+(A) None 09/16/2017 5:12 AM CDT [facility] Hypochromia 1+(A) None 09/16/2017 5:12 AM CDT [facility] Blood BLOOD SPECIMEN / Unknown Venipuncture / Unknown 09/16/2017 4:13 AM CDT 09/16/2017 4:18 AM CDT Veronica Costello MD LAB - HEMATOLOGY ORD ERABLES [facility] [address] [phone] * (ABNORMAL) CBC W AUTO DIFFERENTIAL (09/16/2017 4:13 AM CDT) WBC 8.5 3.5 - 10.5 10? 3 /uL 09/16/2017 4:25 AM [facility] RBC 2.87(L) 4.30 - 5.70 10? 6 /uL 09/16/2017 4:25 AM [facility] Hemoglobin 8.1(L) 13.5 - 17.5 g/dL 09/16/2017 4:25 AM [facility] Hematocrit 27.6(L) 39.0 - 50.0 % 09/16/2017 4:25 AM [facility] MCV 96.2 81.0 - 97.0 fL 09/16/2017 4:25 AM [facility] MCH 28.2 28.0 - 34.0 pg 09/16/2017 4:25 AM [facility] MCHC 29.3(L) 32.0 - 36.0 g/dL 09/16/2017 4:25 AM [facility] Platelet Count 172 150 - 400 10? 3 /uL 09/16/2017 4:25 AM [facility] RDW-SD 76.1(H) 36.0 - 50.0 fL 09/16/2017 4:25 AM [facility] RDW-CV 22.0(H) 11.2 - 14.8 % 09/16/2017 4:25 AM [facility] MPV 12.8 9.3 - 12.8 fL 09/16/2017 4:25 AM [facility] Neutrophils % 80.7(H) 35.0 - 70.0 % 09/16/2017 4:25 AM [facility] Lymphocytes % 9.9(L) 19.7 - 55.1 % 09/16/2017 4:25 AM [facility] Monocytes % 7.0 3.0 - 15.0 % 09/16/2017 4:25 AM [facility] Eosinophils % 2.2 0.0 - 6.0 % 09/16/2017 4:25 AM [facility] Basophil % 0.2 0.0 - 1.5 % 09/16/2017 4:25 AM [facility] Neutrophils Absolute 6.8 1.6 - 7.0 10? 3 /uL 09/16/2017 4:25 AM [facility] Lymphocyte Absolute 0.8 0.8 - 2.9 10? 3 /uL 09/16/2017 4:25 AM [facility] Monocytes Absolute 0.59 0.14 - 0.66 10? 3 /uL 09/16/2017 4:25 AM [facility] Eosinophils Absolute 0.19 0.00 - 0.22 10? 3 /uL 09/16/2017 4:25 AM [facility] Basophils Absolute 0.02 0.00 - 0.06 10? 3 /uL 09/16/2017 4:25 AM [facility] Immature Granulocytes % 0.7 0.0 - 1.0 % 09/16/2017 4:25 AM [facility] Blood BLOOD SPECIMEN / Unknown Venipuncture / Unknown 09/16/2017 4:13 AM CDT 09/16/2017 4:18 AM CDT Veronica Costello MD LAB - HEMATOLOGY ORD ERABLES [facility] [address] [place] [address] * MAGNESIUM BLOOD (09/16/2017 4:13 AM CDT) Magnesium 2.1 1.6 - 2.6 mg/dL 09/16/2017 4:39 AM T [facility] Blood BLOOD SPECIMEN / Unknown Venipuncture / Unknown 09/16/2017 4:13 AM CDT 09/16/2017 4:17 AM CDT Veronica Costello MD LAB - CHEMISTRY ROYCE KLINE [facility] [address] [phone] * (ABNORMAL) BASIC METABOLIC PANEL (CALCIUM TOTAL) (09/16/2017 4:13 AM CDT) BUN 18 7 - 26 mg/dL 09/16/2017 4:39 AM [facility] Creatinine 0.6 0.6 - 1.2 mg/dL 09/16/2017 4:39 AM [facility] Sodium 138 136 - 145 mmol/L 09/16/2017 4:39 AM [facility] Potassium 4.1 3.5 - 4.5 mmol/L 09/16/2017 4:39 AM [facility] Chloride 96(L) 98 - 107 mmol/L 09/16/2017 4:39 AM [facility] CO2 32(H) 22 - 29 mmol/L 09/16/2017 4:39 AM [facility] Glucose 92 70 - 115 mg/dL 09/16/2017 4:39 AM [facility] Calcium 8.8 8.4 - 10.2 mg/dL 09/16/2017 4:39 AM [facility] Anion Gap 14 8 - 18 09/16/2017 4:39 AM [facility] BUN/Creatinine Ratio 30(H) 7 - 23 09/16/2017 4:39 AM [facility] Osmolality Calculated 288 270 - 300 mOsm/kg 09/16/2017 4:39 AM [facility] eGFR >60 >60 mL/min/1.7 3 m2 09/16/2017 4:39 AM [facility] Blood BLOOD SPECIMEN / Unknown Venipuncture / Unknown 09/16/2017 4:13 AM CDT 09/16/2017 4:17 AM CDT Veronica Costello MD LAB - CHEMISTRY ROYCE KLINE [facility] [address] [phone] * PHOSPHORUS BLOOD (09/16/2017 4:13 AM CDT) Phosphorus 2.6 2.3 - 4.7 mg/dL 09/16/2017 4:39 AM CDT [facility] Blood BLOOD SPECIMEN / Unknown Venipuncture / Unknown 09/16/2017 4:13 AM CDT 09/16/2017 4:17 AM CDT Delphine Waddell [employer]-CUTTING TABLE OPERATOR [facility] LAB - CHEMISTRY ORDERABLES [address] [phone] * GLUCOSE - POINT OF CARE (09/16/2017 12:23 AM CDT) Glucose WB/POC 89 70 - 115 mg/dL 09/16/2017 12:36 AM CDT [facility] Blood BLOOD SPECIMEN / Unknown 09/16/2017 12:23 AM CDT 09/16/2017 12:36 AM CDT [facility] - 09/16/2017 12:36 AM CDT Polytechnic Registrar: LYUBOV ?MARCOS Jason Nash MD LAB - POINT OF CARE ORDERABLES [address] [phone] * GLUCOSE - POINT OF CARE (09/15/2017 6:01 PM CDT) Glucose WB/POC 99 70 - 115 mg/dL 09/15/2017 6:33 PM CDT [facility] Blood BLOOD SPECIMEN / Unknown 09/15/2017 6:01 PM CDT 09/15/2017 6:33 PM CDT [facility] - 09/15/2017 6:33 PM CDT Polytechnic Registrar: SG ??JOSE L Jason Nash MD LAB - POINT OF CARE ORDERABLES [address] [phone] * GLUCOSE - POINT OF CARE (09/15/2017 11:56 AM CDT) Glucose WB/POC 104 70 - 115 mg/dL 09/15/2017 12:09 PM CDT [facility] Blood BLOOD SPECIMEN / Unknown 09/15/2017 11:56 AM CDT 09/15/2017 12:09 PM CDT Narrative [facility] - 09/15/2017 12:09 PM CDT Polytechnic Registrar: CHELA ??GLADYS Jason Nash MD LAB - POINT OF CARE ORDERABLES [address] [address], [facility] [phone] * EGD (09/15/2017 8:58 AM CDT) Report Endoscopy POC Endoscopy Department Report _ Patient Name: José Miguel Keys ?Procedure Date: 09/15/2017 8:58 AM ? Date of : 1950 Classification: Inpatient ? Gender: Male _ Providers: ?Louis Mcconnell MD Referring : ? Cheri Singleton (Referring ) Procedure: ?Upper [...] insertion. The externally ? removable 24 [employer] gastrostomy tube was lubricated. The G-tube ? [...] Procedure Code(s): ? --- Professional --- ? 71204, Esophagogastroduoden oscopy, flexible, transoral; with directed ? placement of percutaneous gastrostomy tube Diagnosis Code(s): ?--- Professional --- ?R13.10, Dysphagia, unspecified ?Z43.1, Encounter for attention to gastrostomy ?R63.3, Feeding difficulties CPT copyright 2016 [employer]. All rights reserved. The codes documented in this report are preliminary and upon certified public accountant review may be revised to meet current compliance requirements. Louis Mcconnell MD 09/15/2017 10:44:23 AM Note Initiated On: 09/15/2017 8:58 AM Number of Addenda: 0 ? [facility] ? [address] [place] [address] 09/15/2017 8:58 AM CDT Louis Mcconnell MD GI PROCEDURE ORDERAB LES Performing Organization Address [facility] Co de Phone Number [facility] * GLUCOSE - POINT OF CARE (09/15/2017 8:05 AM CDT) Glucose WB/POC 97 70 - 115 mg/dL 09/15/2017 8:18 AM CDT [facility] Blood BLOOD SPECIMEN / Unknown 09/15/2017 8:05 AM CDT 09/15/2017 8:18 AM CDT Narrative [facility] - 09/15/2017 8:18 AM CDT Polytechnic Registrar: CHELA ?CRISTINA Jason Nash MD LAB - POINT OF CARE ORDERABLES Performing Organization Address [facility] Co de Phone Number [facility] [address] [phone] * XR CHEST 1VW PORTABLE (09/15/2017 5:22 [...] is normal. Dictated by Jay Bowens MD (resident physician). This report was approved ??by Jay Bowens [...] is normal. Dictated by Jay Bowens MD (resident physician). This report was approved by Jay Bowens Dr on 09/16/2017 4:35 PM . I, Dr. PAOLO AGUILAR M.D. have personally reviewed and interpreted this examination/study. This report was electronically signed by PAOLO AGUILAR M.D. on 09/16/2017 5:29 PM . Veronica Costello MD DIAGNOSTIC IMAGING O RDERABLES * (ABNORMAL) DIFFERENTIAL MANUAL (09/15/2017 4:41 AM [facility]) WBC (corrected for NRBC) 8.6 10? 3 /uL 09/15/2017 6:06 AM [facility] Total Cell Count 100 09/16/19 18 6:06 AM [facility] Neutrophils Absolute Manual 7.48(H) 1.60 - 7.00 10? 3 /uL 09/15/2017 6:06 AM [facility] Comment:(BANDS+SEGS) x WBC = NEUT # (ANC) Lymphocyte Absolute Manual 0.77(L) 0.80 - 2.90 10? 3 /uL 09/15/2017 6:06 AM [facility] Monocytes Absolute Manual 0.34 0.14 - 0.66 10? 3 /uL 09/15/2017 6:06 AM [facility] Neutrophil % Manual 87(H) 30 - 60 % 09/15/2017 6:06 AM [facility] Lymphocyte % Manual 9(L) 20 - 45 % 09/15/2017 6:06 AM [facility] Monocytes % Manual 4 2 - 10 % 09/15/2017 6:06 AM [facility] Platelet Estimate Adequate Adequate 09/15/2017 6:06 AM [facility] Anisocytosis 1+(A) None 09/15/2017 6:06 AM [facility] Hypochromia 1+(A) None 09/15/2017 6:06 AM [facility] Schistocytes Few(A) None 09/15/2017 6:06 AM [facility] Ovalocytes 1+(A) None 09/15/2017 6:06 AM [facility] Blood BLOOD SPECIMEN / Unknown Venipuncture / Unknown 09/15/2017 4:41 AM CDT 09/15/2017 4:56 AM CDT Veronica Costello MD LAB - HEMATOLOGY ORD ERABLES Performing Organization Address [facility]/ZIP Co de Phone Number [address] [phone] * TYPE + SCREEN PANEL (09/15/2017 4:41 AM CDT) Pathologist [facility] Antibody Screen NEG 8 6:06 AM CDT [facility] ABO Rh A POS 09/15/2017 6:06 AM CDT [facility] Blood Bank BLOOD SPECIMEN / Unknown Venipuncture / Unknown 09/15/2017 4:41 AM CDT 09/15/2017 5:13 AM CDT [facility] LAB - BLOOD BANK ORDERABLES Performing Organization Address [facility] Co de Phone Number [facility] [id number] * (ABNORMAL) CBC W AUTO DIFFERENTIAL (09/15/2017 4:41 AM CDT) [facility] WBC 8.6 3.5 - 10.5 10? 3 /uL 09/15/2017 5:20 AM [facility] RBC 2.89(L) 4.30 - 5.70 10? 6 /uL 09/15/2017 5:20 AM [facility] Hemoglobin 8.2(L) 13.5 - 17.5 g/dL 09/15/2017 5:20 AM [facility] Hematocrit 27.6(L) 39.0 - 50.0 % 09/15/2017 5:20 AM [facility] MCV 95.5 81.0 - 97.0 fL 09/15/2017 5:20 AM [facility] MCH 28.4 28.0 - 34.0 pg 09/15/2017 5:20 AM [facility] MCHC 29.7(L) 32.0 - 36.0 g/dL 09/15/2017 5:20 AM [facility] Platelet Count 186 150 - 400 10? 3 /uL 09/15/2017 5:20 AM [facility] RDW-SD 74.8(H) 36.0 - 50.0 fL 09/15/2017 5:20 AM [facility] RDW-CV 22.0(H) 11.2 - 14.8 % 09/15/2017 5:20 AM T [facility] MPV 13.1(H) 9.3 - 12.8 fL 09/15/2017 5:20 AM [facility] Blood BLOOD SPECIMEN / Unknown Venipuncture / Unknown 09/15/2017 4:41 AM CDT 09/15/2017 4:56 AM CDT Veronica Costello MD LAB - HEMATOLOGY ORD ERABLES Performing Organization Address [facility]/ZIP Co de Phone Number [address] [phone] * MAGNESIUM BLOOD (09/15/2017 4:41 AM CDT) Magnesium 1.8 1.6 - 2.6 mg/dL 09/15/2017 5:51 AM [facility] Blood BLOOD SPECIMEN / Unknown Venipuncture / Unknown 09/15/2017 4:41 AM CDT 09/15/2017 4:56 AM CDT Veronica Costello MD LAB - CHEMISTRY ORDMarj RABANGELIA Performing Organization Address City/[facility]/ZIP Co de Phone Number [address] [phone] * (ABNORMAL) BASIC METABOLIC PANEL (CALCIUM TOTAL) (09/15/2017 4:41 AM CDT) BUN 23 7 - 26 mg/dL 09/15/2017 5:51 AM [facility] Creatinine 0.6 0.6 - 1.2 mg/dL 09/15/2017 5:51 AM [facility] Sodium 138 136 - 145 mmol/L 09/15/2017 5:51 AM T [facility] Potassium 3.8 3.5 - 4.5 mmol/L 09/15/2017 5:51 AM [facility] Chloride 95(L) 98 - 107 mmol/L 09/15/2017 5:51 AM [facility] CO2 33(H) 22 - 29 mmol/L 09/15/2017 5:51 AM [facility] Glucose 103 70 - 115 mg/dL 09/15/2017 5:51 AM [facility] Calcium 8.8 8.4 - 10.2 mg/dL 09/15/2017 5:51 AM [facility] Anion Gap 14 8 - 18 09/15/2017 5:51 AM [facility] BUN/Creatinine Ratio 38(H) 7 - 23 09/15/2017 5:51 AM [facility] Osmolality Calculated 290 270 - 300 mOsm/kg 09/15/2017 5:51 AM [facility] eGFR >60 >60 mL/min/1.7 3 m2 09/15/2017 5:51 AM [facility] Blood BLOOD SPECIMEN / Unknown Venipuncture / Unknown 09/15/2017 4:41 AM CDT 09/15/2017 4:56 AM CDT Veronica Costello MD LAB - CHEMISTRY ROYCE [facility] Organization Address City/State/ZIP Co de Phone Number [facility] [address] [place] [address] * (ABNORMAL) B-TYPE NATRIURETIC PEPTIDE (09/15/2017 4:41 AM CDT) BNP 694(H) See Comment pg/mL 09/15/2017 5:35 AM [facility] Comment: A decision threshold of 100 [...] Costello MD LAB - CHEMISTRY ROYCE KLINE [facility] [address] [place] [address], [facility] [phone] * (ABNORMAL) PT-INR [facility] (09/15/2017 4:41 AM CDT) PT 15.1(H) 12.1 - 14.8 Seconds 09/15/2017 5:33 AM CDT [facility] INR 1.2 See Comment 09/15/2017 5:33 AM CDT [facility] Comment: Suggested therapeutic range for low-intensity coumadin [...] - COAGULATION OR DERABLES Performing Organization Address [facility] Co de Phone Number [address] [phone] * (ABNORMAL) GLUCOSE - POINT OF CARE (09/15/2017 2:23 AM CDT) Glucose WB/POC 145(H) 70 - 115 mg/dL 09/15/2017 2:38 AM CDT [facility] Blood BLOOD SPECIMEN / Unknown 09/15/2017 2:23 AM CDT 09/15/2017 2:38 AM CDT [facility] - 09/15/2017 2:38 AM CDT Polytechnic Registrar: SHEREE ?NAVEEN Jason Nash MD LAB - POINT OF CARE ORDERABLES Performing Organization Address [facility] Co de Phone Number [address] [phone] * (ABNORMAL) GLUCOSE - POINT OF CARE (09/14/2017 7:45 PM CDT) Glucose WB/POC 165(H) 70 - 115 mg/dL 09/14/2017 8:08 PM CDT [facility] Blood BLOOD SPECIMEN / Unknown 09/14/2017 7:45 PM CDT 09/14/2017 8:08 PM CDT Narrative [facility] - 09/14/2017 8:08 PM CDT Polytechnic Registrar: SHEREE ?NAVEEN Jason Nash MD LAB - POINT OF CARE ORDERABLES [address] [phone] * (ABNORMAL) GLUCOSE - POINT OF CARE (09/14/2017 6:27 PM CDT) Glucose WB/POC 170(H) 70 - 115 mg/dL 09/14/2017 6:48 PM CDT [facility] Blood BLOOD SPECIMEN / Unknown 09/14/2017 6:27 PM CDT 09/14/2017 6:48 PM CDT Narrative [facility] - 09/14/2017 6:48 PM CDT Polytechnic Registrar: STRUM ?WYATT Jason Nash MD LAB - POINT OF CARE ORDERABLES Performing Organization Address City/[facility]/ZIP Co de Phone Number [address] [phone] * (ABNORMAL) GLUCOSE - POINT OF CARE (09/14/2017 12:46 PM CDT) Glucose WB/POC 183(H) 70 - 115 mg/dL 09/14/2017 1:16 PM CDT [facility] Blood BLOOD SPECIMEN / Unknown 09/14/2017 12:46 PM CDT 09/14/2017 1:16 PM CDT Narrative [facility] - 09/14/2017 1:16 PM CDT Polytechnic Registrar: STRUM ?WYATT Jason Nash MD LAB - POINT OF CARE ORDERABLES [address] [phone] * (ABNORMAL) GLUCOSE - POINT OF CARE (09/14/2017 6:34 AM CDT) Glucose WB/POC 149(H) 70 - 115 mg/dL 09/14/2017 6:48 AM CDT [facility] Blood BLOOD SPECIMEN / Unknown 09/14/2017 6:34 AM CDT 09/14/2017 6:48 AM CDT Narrative [facility] - 09/14/2017 6:48 AM CDT Polytechnic Registrar: SHEREE ?NAVEEN Jason Nash MD LAB - POINT OF CARE ORDERABLES [facility] [address] [place] [address], [facility] [phone] * XR CHEST 1VW PORTABLE (09/14/2017 6:19 [...] vascular congestion. Dictated by Jay Bowens MD (resident physician). I, Dr. SULLY RUANO M.D. have personally [...] vascular congestion. Dictated by Jay Bowens MD (resident physician). I, Dr. SULLY RUANO M.D. have personally reviewed and interpreted this examination/study. This report was electronically signed by SULLY RUANO M.D. on 09/14/2017 10:19 AM . Veronica Costello MD DIAGNOSTIC IMAGING O RDERABLES * (ABNORMAL) DIFFERENTIAL MANUAL (09/14/2017 5:21 AM CDT) WBC (corrected for NRBC) 10.1 10? 3 /uL 09/14/2017 6:45 AM [facility] Total Cell Count 100 09/14/2017 6:45 AM [facility] Neutrophils Absolute Manual 8.08(H) 1.60 - 7.00 10? 3 /uL 09/14/2017 6:45 AM [facility] Comment:(BANDS+SEGS) x WBC = NEUT # (ANC) Lymphocyte Absolute Manual 0.61(L) 0.80 - 2.90 10? 3 /uL 09/14/2017 6:45 AM [facility] Monocytes Absolute Manual 1.31(H) 0.14 - 0.66 10? 3 /uL 09/14/2017 6:45 AM [facility] Eosinophils Absolute Manual 0.10 0.00 - 0.22 10? 3 /uL 09/14/2017 6:45 AM [facility] Band % Manual 2 0 - 10 % 09/14/2017 6:45 AM [facility] Neutrophil % Manual 78(H) 30 - 60 % 09/14/2017 6:45 AM [facility] Lymphocyte % Manual 6(L) 20 - 45 % 09/14/2017 6:45 AM [facility] Monocytes % Manual 13(H) 2 - 10 % 09/14/2017 6:45 AM [facility] Eosinophils % Manual 1 1 - 6 % 09/14/2017 6:45 AM [facility] Platelet Estimate Adequate Adequate 09/14/2017 6:45 AM [facility] RBC Morphology Normal 09/14/2017 6:45 AM [facility] Blood BLOOD SPECIMEN / Unknown Venipuncture / Unknown 09/14/2017 5:21 AM CDT 09/14/2017 5:30 AM CDT Veronica Costello MD LAB - HEMATOLOGY ORD ERABLES Performing Organization Address City/State/[facility] Co de Phone Number [facility] [address] [place] [address] * (ABNORMAL) CBC W AUTO DIFFERENTIAL (09/14/2017 5:21 AM CDT) WBC 10.1 3.5 - 10.5 10? 3 /uL 09/14/2017 5:52 AM [facility] Comment:The WBC count is cor rected by the instrument for nRBC's RBC 3.00(L) 4.30 - 5.70 10? 6 /uL 09/14/2017 5:52 AM [facility] Hemoglobin 8.7(L) 13.5 - 17.5 g/dL 09/14/2017 5:52 AM [facility] Hematocrit 28.4(L) 39.0 - 50.0 % 09/14/2017 5:52 AM [facility] MCV 94.7 81.0 - 97.0 fL 09/14/2017 5:52 AM [facility] MCH 29.0 28.0 - 34.0 pg 09/14/2017 5:52 AM [facility] MCHC 30.6(L) 32.0 - 36.0 g/dL 09/14/2017 5:52 AM [facility] Platelet Count 224 150 - 400 10? 3 /uL 09/14/2017 5:52 AM CDT [facility] RDW-SD 75.0(H) 36.0 - 50.0 fL 09/14/2017 5:52 AM CDT [facility] RDW-CV 21.9(H) 11.2 - 14.8 % 09/14/2017 5:52 AM CDT [facility] MPV 13.2(H) 9.3 - 12.8 fL 09/14/2017 5:52 AM CDT [facility] nRBC Absolute 0.15(H) 0 10? 3 /uL 09/14/2017 5:52 AM T [facility] nRBC Auto 1.5(H) 0 /100 WBC 09/14/2017 5:52 AM T [facility] Reflex Status Manual Differential to follow. 09/14/2017 5:52 AM T [facility] Blood BLOOD SPECIMEN / Unknown Venipuncture / Unknown 09/14/2017 5:21 AM CDT 09/14/2017 5:30 AM CDT Veronica Costello MD LAB - HEMATOLOGY ORD ERABLES [address] [phone] * MAGNESIUM BLOOD (09/14/2017 5:21 AM CDT) Magnesium 1.6 1.6 - 2.6 mg/dL 09/14/2017 5:53 AM T [facility] Blood BLOOD SPECIMEN / Unknown Venipuncture / Unknown 09/14/2017 5:21 AM CDT 09/14/2017 5:30 AM CDT Veronica Costello MD LAB - CHEMISTRY ORDMarj KLINE [address] [phone] * (ABNORMAL) BASIC METABOLIC PANEL (CALCIUM TOTAL) (09/14/2017 5:21 AM CDT) BUN 21 7 - 26 mg/dL 09/14/2017 5:53 AM [facility] Creatinine 0.6 0.6 - 1.2 mg/dL 09/14/2017 5:53 AM [facility] Sodium 138 136 - 145 mmol/L 09/14/2017 5:53 AM [facility] Potassium 3.7 3.5 - 4.5 mmol/L 09/14/2017 5:53 AM [facility] Chloride 96(L) 98 - 107 mmol/L 09/14/2017 5:53 AM [facility] CO2 32(H) 22 - 29 mmol/L 09/14/2017 5:53 AM [facility] Glucose 136(H) 70 - 115 mg/dL 09/14/2017 5:53 AM [facility] Calcium 8.7 8.4 - 10.2 mg/dL 09/14/2017 5:53 AM [facility] Anion Gap 14 8 - 18 09/14/2017 5:53 AM [facility] BUN/Creatinine Ratio 35(H) 7 - 23 09/14/2017 5:53 AM [facility] Osmolality Calculated 291 270 - 300 mOsm/kg 09/14/2017 5:53 AM [facility] eGFR >60 >60 mL/min/1.7 3 m2 09/14/2017 5:53 AM [facility] Blood BLOOD SPECIMEN / Unknown Venipuncture / Unknown 09/14/2017 5:21 AM CDT 09/14/2017 5:30 AM T Veronica Costello MD LAB - CHEMISTRY ROYCE KLINE [facility] Organization Address City/State/ZIP Co de Phone Number [facility] [address] [place] [address] * GLUCOSE - POINT OF CARE (09/14/2017 12:20 AM CDT) Glucose WB/POC 88 70 - 115 mg/dL 09/14/2017 12:35 AM [facility] Blood BLOOD SPECIMEN / Unknown 09/14/2017 12:20 AM CDT 09/14/2017 12:35 AM CDT Narrative [facility] - 09/14/2017 12:35 AM CDT Polytechnic Registrar: BENTLEY ?NAVEEN Jason Nash MD LAB - [place] [address], [facility] [phone] * XR ABDOMEN KUB (09/13/2017 7:16 PM [...] partially imaged. Dictated by Jay Bowens MD (resident physician). Dr. SULLY Stringer M.D. have personally reviewed [...] partially imaged. Dictated by Jay Bowens MD (resident physician). Dr. SULLY Stringer M.D. have personally reviewed and interpreted this examination/study. This report was electronically signed by SULLY RUANO M.D. on 09/14/2017 10:16 AM . Ivonne Rubin MD DIAGNOSTIC IMAGING O RDERABLES * GLUCOSE - POINT OF CARE (09/13/2017 6:45 PM CDT) Glucose WB/POC 91 70 - 115 mg/dL 09/13/2017 6:58 PM CDT [facility] Blood BLOOD SPECIMEN / Unknown 09/13/2017 6:45 PM CDT 09/13/2017 6:58 PM CDT Narrative [facility] - 09/13/2017 6:58 PM CDT Polytechnic Registrar: Ajith) ??GLENDY Jason Nash MD LAB - POINT OF CARE ORDERABLES [address] [phone] * GLUCOSE - POINT OF CARE (09/13/2017 11:14 AM CDT) Glucose WB/POC 108 70 - 115 mg/dL 09/13/2017 11:45 AM CDT [facility] Blood BLOOD SPECIMEN / Unknown 09/13/2017 11:14 AM CDT 09/13/2017 11:45 AM CDT [facility] - 09/13/2017 11:45 AM CDT Polytechnic Registrar: Ajith) ??GLENDY Jason Nash MD LAB - POINT OF CARE ORDERABLES [address] [phone] * GLUCOSE - POINT OF CARE (09/13/2017 7:02 AM CDT) Glucose WB/POC 101 70 - 115 mg/dL 09/13/2017 7:40 AM CDT [facility] Blood BLOOD SPECIMEN / Unknown 09/13/2017 7:02 AM CDT 09/13/2017 7:40 AM CDT Narrative [facility] - 09/13/2017 7:40 AM CDT Polytechnic Registrar: RIKKI ??DANIELLE Jason Nash MD LAB - POINT OF CARE ORDERABLES [address] [phone] * XR CHEST 1VW PORTABLE (09/13/2017 5:20 [...] remains enlarged. Dictated by Jay Bowens MD (resident physician). I, Dr. SILAS NGUYỄN MD have personally [...] remains enlarged. Dictated by Jay Bowens MD (resident physician). I, Dr. SILAS NGUYỄN MD have personally reviewed and interpreted this examination/study. This report was electronically signed by SILAS NGUYỄN MD on09/13/2017 11:53 AM . Veronica Costello MD DIAGNOSTIC IMAGING O RDERABLES * (ABNORMAL) RBC MORPHOLOGY (09/13/2017 5:17 AM CDT) Pathologist [facility] Macrocytosis 1+(A) None 09/13/2017 6:30 AM [facility] Blood BLOOD SPECIMEN / Unknown Venipuncture / Unknown 09/13/2017 5:17 AM CDT 09/13/2017 5:23 AM CDT Veronica Costello MD LAB - HEMATOLOGY ORD ERABLES Performing Organization Address City/State/[facility] Co de Phone Number [address] [phone] * (ABNORMAL) CBC W AUTO DIFFERENTIAL (09/13/2017 5:17 AM CDT) Pathologist [facility] WBC 8.9 3.5 - 10.5 10? 3 /uL 09/13/2017 6:30 AM [facility] RBC 2.95(L) 4.30 - 5.70 10? 6 /uL 09/13/2017 6:30 AM [facility] Hemoglobin 8.5(L) 13.5 - 17.5 g/dL 09/13/2017 6:30 AM [facility] Hematocrit 27.6(L) 39.0 - 50.0 % 09/13/2017 6:30 AM [facility] MCV 93.6 81.0 - 97.0 fL 09/13/2017 6:30 AM [facility] MCH 28.8 28.0 - 34.0 pg 09/13/2017 6:30 AM [facility] MCHC 30.8(L) 32.0 - 36.0 g/dL 09/13/2017 6:30 AM [facility] Platelet Count 213 150 - 400 10? 3 /uL 09/13/2017 6:30 AM [facility] RDW-SD 70.6(H) 36.0 - 50.0 fL 09/13/2017 6:30 AM [facility] RDW-CV 21.5(H) 11.2 - 14.8 % 09/13/2017 6:30 AM [facility] MPV 13.0(H) 9.3 - 12.8 fL 09/13/2017 6:30 AM [facility] Neutrophils % 82.9(H) 35.0 - 70.0 % 09/13/2017 6:30 AM [facility] Lymphocytes % 10.1(L) 19.7 - 55.1 % 09/13/2017 6:30 AM [facility] Monocytes % 3.4 3.0 - 15.0 % 09/13/2017 6:30 AM [facility] Eosinophils % 3.4 0.0 - 6.0 % 09/13/2017 6:30 AM [facility] Basophil % 0.2 0.0 - 1.5 % 09/13/2017 6:30 AM [facility] Neutrophils Absolute 7.4(H) 1.6 - 7.0 10? 3 /uL 09/13/2017 6:30 AM [facility] Lymphocyte Absolute 0.9 0.8 - 2.9 10? 3 /uL 09/13/2017 6:30 AM [facility] Monocytes Absolute 0.30 0.14 - 0.66 10? 3 /uL 09/13/2017 6:30 AM [facility] Eosinophils Absolute 0.30(H) 0.00 - 0.22 10? 3 /uL 09/13/2017 6:30 AM [facility] Basophils Absolute 0.02 0.00 - 0.06 10? 3 /uL 09/13/2017 6:30 AM [facility] Reflex Status Morphology review to follow. 09/13/2017 6:30 AM [facility] Comment:This is an appended report. These results have been appended to a previously final verified report. Immature Granulocytes % 0.8 0.0 - 1.0 % 09/13/2017 6:30 AM [facility] Blood BLOOD SPECIMEN / Unknown Venipuncture / Unknown 09/13/2017 5:17 AM CDT 09/13/2017 5:23 AM CDT Veronica Costello MD LAB - HEMATOLOGY ORD ERABLES [address] [phone] * MAGNESIUM BLOOD (09/13/2017 5:17 AM CDT) Magnesium 1.6 1.6 - 2.6 mg/dL 09/13/2017 5:41 AM [facility] Blood BLOOD SPECIMEN / Unknown Venipuncture / Unknown 09/13/2017 5:17 AM CDT 09/13/2017 5:23 AM CDT Veronica Costello MD LAB - CHEMISTRY ORDE RAISA Performing Organization Address City/[facility]/ZIP Co de Phone Number [address] [phone] * (ABNORMAL) BASIC METABOLIC PANEL (CALCIUM TOTAL) (09/13/2017 5:17 AM CDT) BUN 26 7 - 26 mg/dL 09/13/2017 5:41 AM [facility] Creatinine 0.6 0.6 - 1.2 mg/dL 09/13/2017 5:41 AM [facility] Sodium 139 136 - 145 mmol/L 09/13/2017 5:41 AM [facility] Potassium 4.6(H) 3.5 - 4.5 mmol/L 09/13/2017 5:41 AM [facility] Chloride 96(L) 98 - 107 mmol/L 09/13/2017 5:41 AM [facility] CO2 31(H) 22 - 29 mmol/L 09/13/2017 5:41 AM [facility] Glucose 96 70 - 115 mg/dL 09/13/2017 5:41 AM [facility] Calcium 9.0 8.4 - 10.2 mg/dL 09/13/2017 5:41 AM [facility] Anion Gap 17 8 - 18 09/13/2017 5:41 AM CDT [facility] BUN/Creatinine Ratio 43(H) 7 - 23 09/13/2017 5:41 AM CDT [facility] Osmolality Calculated 293 270 - 300 mOsm/kg 09/13/2017 5:41 AM T [facility] eGFR >60 >60 mL/min/1.7 3 m2 09/13/2017 5:41 AM CDT [facility] Blood BLOOD SPECIMEN / Unknown Venipuncture / Unknown 09/13/2017 5:17 AM CDT 09/13/2017 5:23 AM CDT Veronica Costello MD LAB - CHEMISTRY ROYCE KLINE [address] [phone] * (ABNORMAL) GLUCOSE - POINT OF CARE (09/12/2017 11:49 PM CDT) Glucose WB/POC 124(H) 70 - 115 mg/dL 09/13/2017 12:02 AM CDT [facility] Blood BLOOD SPECIMEN / Unknown 09/12/2017 11:49 PM CDT 09/13/2017 12:02 AM CDT [facility] - 09/13/2017 12:02 AM CDT Polytechnic Registrar: TEETEE ??BETO Jason Nash MD LAB - POINT OF CARE ORDERABLES [address] [phone] * GLUCOSE - POINT OF CARE (09/12/2017 6:32 PM CDT) Glucose WB/POC 106 70 - 115 mg/dL 09/12/2017 6:58 PM CDT [facility] Blood BLOOD SPECIMEN / Unknown 09/12/2017 6:32 PM CDT 09/12/2017 6:58 PM CDT [facility] - 09/12/2017 6:58 PM CDT Polytechnic Registrar: REUBEN FAGAN Jason Nash MD LAB - POINT OF CARE ORDERABLES Performing Organization Address City/[facility]/ZIP Co de Phone Number [address] [phone] * GLUCOSE - POINT OF CARE (09/12/2017 1:33 PM CDT) [facility] Glucose WB/POC 99 70 - 115 mg/dL 09/12/2017 1:55 PM CDT [facility] Blood BLOOD SPECIMEN / Unknown 09/12/2017 1:33 PM CDT 09/12/2017 1:55 PM CDT Narrative [facility] - 09/12/2017 1:55 PM CDT Polytechnic Registrar: REUBEN FAGAN Jason Nash MD LAB - POINT OF CARE ORDERABLES Performing Organization Address [facility] Co de Phone Number [address] [phone] * (ABNORMAL) DIFFERENTIAL MANUAL (09/12/2017 5:14 AM CDT) [facility] WBC (corrected for NRBC) 9.5 10? 3 /uL 09/12/2017 8:05 AM [facility] Total Cell Count 100 09/13/19 18 8:05 AM [facility] Neutrophils Absolute Manual 7.70(H) 1.60 - 7.00 10? 3 /uL 09/12/2017 8:05 AM [facility] Comment:(BANDS+SEGS) x WBC = NEUT # (ANC) Lymphocyte Absolute Manual 0.57(L) 0.80 - 2.90 10? 3 /uL 09/12/2017 8:05 AM [facility] Monocytes Absolute Manual 0.86(H) 0.14 - 0.66 10? 3 /uL 09/12/2017 8:05 AM [facility] Eosinophils Absolute Manual 0.38(H) 0.00 - 0.22 10? 3 /uL 09/12/2017 8:05 AM [facility] Neutrophil % Manual 81(H) 30 - 60 % 09/12/2017 8:05 AM [facility] Lymphocyte % Manual 6(L) 20 - 45 % 09/12/2017 8:05 AM [facility] Monocytes % Manual 9 2 - 10 % 09/12/2017 8:05 AM [facility] Eosinophils % Manual 4 1 - 6 % 09/12/2017 8:05 AM [facility] Platelet Estimate Adequate Adequate 018 8:05 AM [facility] Anisocytosis 1+(A) None 09/12/2017 8:05 AM [facility] Polychromasia 1+(A) None 09/12/2017 8:05 AM [facility] Ovalocytes 1+(A) None 09/12/2017 8:05 AM [facility] Blood BLOOD SPECIMEN / Unknown Venipuncture / Unknown 09/12/2017 5:14 AM CDT 09/12/2017 5:23 AM CDT Veronica Costello MD LAB - HEMATOLOGY ORD ERABLES Performing Organization Address City/State/[facility] Co de Phone Number [address] [phone] * (ABNORMAL) CBC W AUTO DIFFERENTIAL (09/12/2017 5:14 AM CDT) WBC 9.5 3.5 - 10.5 10? 3 /uL 09/12/2017 6:51 AM [facility] RBC 2.99(L) 4.30 - 5.70 10? 6 /uL 09/12/2017 6:51 AM [facility] Hemoglobin 8.6(L) 13.5 - 17.5 g/dL 09/12/2017 6:51 AM [facility] Hematocrit 28.8(L) 39.0 - 50.0 % 09/12/2017 6:51 AM [facility] MCV 96.3 81.0 - 97.0 fL 09/12/2017 6:51 AM [facility] MCH 28.8 28.0 - 34.0 pg 09/12/2017 6:51 AM [facility] MCHC 29.9(L) 32.0 - 36.0 g/dL 09/12/2017 6:51 AM [facility] Platelet Count 185 150 - 400 10? 3 /uL 09/12/2017 6:51 AM [facility] RDW-SD 74.2(H) 36.0 - 50.0 fL 09/12/2017 6:51 AM [facility] RDW-CV 21.8(H) 11.2 - 14.8 % 09/12/2017 6:51 AM [facility] MPV 13.6(H) 9.3 - 12.8 fL 09/12/2017 6:51 AM [facility] nRBC Absolute 0.00 0 10? 3 /uL 09/12/2017 6:51 AM [facility] nRBC Auto 0.0 0 /100 WBC 09/12/2017 6:51 AM [facility] Neutrophils % 81.8(H) 35.0 - 70.0 % 09/12/2017 6:51 AM [facility] Lymphocytes % 5.8(L) 19.7 - 55.1 % 09/12/2017 6:51 AM [facility] Monocytes % 8.6 3.0 - 15.0 % 09/12/2017 6:51 AM [facility] Eosinophils % 3.4 0.0 - 6.0 % 09/12/2017 6:51 AM [facility] Basophil % 0.4 0.0 - 1.5 % 09/12/2017 6:51 AM [facility] Neutrophils Absolute 7.7(H) 1.6 - 7.0 10? 3 /uL 09/12/2017 6:51 AM [facility] Lymphocyte Absolute 0.6(L) 0.8 - 2.9 10? 3 /uL 09/12/2017 6:51 AM [facility] Monocytes Absolute 0.81(H) 0.14 - 0.66 10? 3 /uL 09/12/2017 6:51 AM [facility] Eosinophils Absolute 0.32(H) 0.00 - 0.22 10? 3 /uL 09/12/2017 6:51 AM [facility] Basophils Absolute 0.04 0.00 - 0.06 10? 3 /uL 09/12/2017 6:51 AM [facility] Immature Granulocytes % 1.1(H) 0.0 - 1.0 % 09/12/2017 6:51 AM T [facility] Blood BLOOD SPECIMEN / Unknown Venipuncture / Unknown 09/12/2017 5:14 AM CDT 09/12/2017 5:23 AM CDT Veronica Costello MD LAB - HEMATOLOGY ORD ERABLES [address] [phone] * MAGNESIUM BLOOD (09/12/2017 5:14 AM CDT) Magnesium 1.6 1.6 - 2.6 mg/dL 09/12/2017 5:50 AM [facility] Blood BLOOD SPECIMEN / Unknown Venipuncture / Unknown 09/12/2017 5:14 AM CDT 09/12/2017 5:23 AM CDT Veronica Costello MD LAB - CHEMISTRY ORDE RABANGELIA [address] [phone] * (ABNORMAL) BASIC METABOLIC PANEL (CALCIUM TOTAL) (09/12/2017 5:14 AM CDT) BUN 35(H) 7 - 26 mg/dL 09/12/2017 5:50 AM [facility] Creatinine 0.7 0.6 - 1.2 mg/dL 09/12/2017 5:50 AM [facility] Sodium 139 136 - 145 mmol/L 09/12/2017 5:50 AM [facility] Potassium 5.0(H) 3.5 - 4.5 mmol/L 09/12/2017 5:50 AM [facility] Chloride 98 98 - 107 mmol/L 09/12/2017 5:50 AM [facility] CO2 28 22 - 29 mmol/L 09/12/2017 5:50 AM [facility] Glucose 96 70 - 115 mg/dL 09/12/2017 5:50 AM CDT [facility] Calcium 8.6 8.4 - 10.2 mg/dL 09/12/2017 5:50 AM T [facility] Anion Gap 18 8 - 18 09/12/2017 5:50 AM T [facility] BUN/Creatinine Ratio 50(H) 7 - 23 09/12/2017 5:50 AM T [facility] Osmolality Calculated 296 270 - 300 mOsm/kg 09/12/2017 5:50 AM T [facility] eGFR >60 >60 mL/min/1.7 3 m2 09/12/2017 5:50 AM T [facility] Blood BLOOD SPECIMEN / Unknown Venipuncture / Unknown 09/12/2017 5:14 AM CDT 09/12/2017 5:23 AM CDT Veronica Costello MD LAB - CHEMISTRY [place] [address] [phone] * GLUCOSE - POINT OF CARE (09/12/2017 5:12 AM CDT) Glucose WB/POC 113 70 - 115 mg/dL 09/12/2017 5:44 AM CDT [facility] Blood BLOOD SPECIMEN / Unknown 09/12/2017 5:12 AM CDT 09/12/2017 5:44 AM CDT Narrative [facility] - 09/12/2017 5:44 AM CDT [employer] Registrar: CARLOS ?JANET Jason Nash MD LAB - POINT OF CARE ORDERABLES [address] [phone] * GLUCOSE - POINT OF CARE (09/12/2017 1:14 AM CDT) Glucose WB/POC 114 70 - 115 mg/dL 09/12/2017 1:36 AM CDT [facility] Blood BLOOD SPECIMEN / Unknown 09/12/2017 1:14 AM CDT 09/12/2017 1:36 AM CDT Narrative [facility] - 09/12/2017 1:36 AM CDT [employer] Registrar: CARLOS ROSEN Jason Nash MD LAB - POINT OF CARE ORDERABLES Performing Organization Address City/[facility]/[place] [address], [facility] [phone] * (ABNORMAL) GLUCOSE - POINT OF CARE (09/11/2017 5:28 PM CDT) Glucose WB/POC 150(H) 70 - 115 mg/dL 09/11/2017 5:53 PM CDT [facility] Blood BLOOD SPECIMEN / Unknown 09/11/2017 5:28 PM CDT 09/11/2017 5:53 PM CDT Narrative [facility] - 09/11/2017 5:53 PM CDT [employer] Registrar: PRINCESS ?KAR Jason Nash MD LAB - POINT OF CARE ORDERABLES Performing Organization Address [facility]/[place] [address], [facility] [phone] * (ABNORMAL) GLUCOSE - POINT OF CARE (09/11/2017 11:49 AM CDT) Glucose WB/POC 116(H) 70 - 115 mg/dL 09/11/2017 12:03 PM CDT [facility] Blood BLOOD SPECIMEN / Unknown 09/11/2017 11:49 AM CDT 09/11/2017 12:03 PM CDT Narrative [facility] - 09/11/2017 12:03 PM CDT [employer] Registrar: PRINCESS CAMPBELL Jason Nash MD LAB - [place] [address], [facility] [phone] * TYPE + SCREEN PANEL (09/11/2017 6:50 AM CDT) Antibody Screen NEG 8 7:42 AM CDT [facility] ABO Rh A POS 09/11/2017 7:42 AM CDT [facility] Blood Bank BLOOD SPECIMEN / Unknown Venipuncture / Unknown 09/11/2017 6:50 AM CDT 09/11/2017 6:59 AM CDT Veronica Costello MD LAB - BLOOD BANK ORD ERABLES [facility] BLOOD BANK LAB [address] * XR CHEST 1VW (09/11/2017 6:33 AM [...] OF CARE (09/11/2017 5:54 AM CDT) Pathologist [facility] Glucose WB/POC 139(H) 70 - 115 mg/dL 09/11/2017 6:27 AM CDT [facility] Blood BLOOD SPECIMEN / Unknown 09/11/2017 5:54 AM CDT 09/11/2017 6:26 AM CDT Narrative [facility] - 09/11/2017 6:27 AM CDT Polytechnic Registrar: DEE ??HOA Jason Nash MD LAB - POINT OF CARE ORDERABLES [address] [phone] * (ABNORMAL) RBC MORPHOLOGY (09/11/2017 4:37 AM CDT) Pathologist [facility] Platelet Estimate Adequate Adequate 018 8:36 AM [facility] Anisocytosis 1+(A) None 09/11/2017 8:36 AM [facility] Polychromasia Occasional( A) None 09/11/2017 8:36 AM [facility] Target Cells Occasional( A) None 09/11/2017 8:36 AM [facility] Ovalocytes 1+(A) None 09/11/2017 8:36 AM [facility] Blood BLOOD SPECIMEN / Unknown Venipuncture / Unknown 09/11/2017 4:37 AM CDT 09/11/2017 4:55 AM CDT Veronica Costello MD LAB - HEMATOLOGY ORD ERABLES [facility] [address] [place] [address] * (ABNORMAL) CBC W AUTO DIFFERENTIAL (09/11/2017 4:37 AM CDT) WBC 11.0(H) 3.5 - 10.5 10? 3 /uL 09/11/2017 5:35 AM [facility] RBC 3.07(L) 4.30 - 5.70 10? 6 /uL 09/11/2017 5:35 AM [facility] Hemoglobin 8.7(L) 13.5 - 17.5 g/dL 09/11/2017 5:35 AM [facility] Hematocrit 29.4(L) 39.0 - 50.0 % 09/11/2017 5:35 AM [facility] MCV 95.8 81.0 - 97.0 fL 09/11/2017 5:35 AM [facility] MCH 28.3 28.0 - 34.0 pg 09/11/2017 5:35 AM [facility] MCHC 29.6(L) 32.0 - 36.0 g/dL 09/11/2017 5:35 AM [facility] Platelet Count 234 150 - 400 10? 3 /uL 09/11/2017 5:35 AM [facility] RDW-SD 71.3(H) 36.0 - 50.0 fL 09/11/2017 5:35 AM [facility] RDW-CV 21.4(H) 11.2 - 14.8 % 09/11/2017 5:35 AM [facility] MPV 12.9(H) 9.3 - 12.8 fL 09/11/2017 5:35 AM [facility] nRBC Absolute 0.05(H) 0 10? 3 /uL 09/11/2017 5:35 AM [facility] nRBC Auto 0.4(H) 0 /100 WBC 09/11/2017 5:35 AM [facility] Comment:Confirmed by repeat analysis. Neutrophils % 82.9(H) 35.0 - 70.0 % 09/11/2017 5:35 AM [facility] Lymphocytes % 6.3(L) 19.7 - 55.1 % 09/11/2017 5:35 AM [facility] Monocytes % 7.9 3.0 - 15.0 % 09/11/2017 5:35 AM [facility] Eosinophils % 2.6 0.0 - 6.0 % 09/11/2017 5:35 AM [facility] Basophil % 0.3 0.0 - 1.5 % 09/11/2017 5:35 AM [facility] Neutrophils Absolute 9.1(H) 1.6 - 7.0 10? 3 /uL 09/11/2017 5:35 AM [facility] Lymphocyte Absolute 0.7(L) 0.8 - 2.9 10? 3 /uL 09/11/2017 5:35 AM [facility] Monocytes Absolute 0.87(H) 0.14 - 0.66 10? 3 /uL 09/11/2017 5:35 AM [facility] Eosinophils Absolute 0.29(H) 0.00 - 0.22 10? 3 /uL 09/11/2017 5:35 AM [facility] Basophils Absolute 0.03 0.00 - 0.06 10? 3 /uL 09/11/2017 5:35 AM [facility] Reflex Status Morphology review to follow. 09/11/2017 5:35 AM [facility] Immature Granulocytes % 1.6(H) 0.0 - 1.0 % 09/11/2017 5:35 AM CDT [facility] Blood BLOOD SPECIMEN / Unknown Venipuncture / Unknown 09/11/2017 4:37 AM CDT 09/11/2017 4:55 AM CDT Veronica Costello MD LAB - HEMATOLOGY ORD ERABLES Performing Organization Address [facility]/ZIP Co de Phone Number [address] [phone] * MAGNESIUM BLOOD (09/11/2017 4:37 AM CDT) Magnesium 1.7 1.6 - 2.6 mg/dL 09/11/2017 5:25 AM T [facility] Blood BLOOD SPECIMEN / Unknown Venipuncture / Unknown 09/11/2017 4:37 AM CDT 09/11/2017 4:55 AM CDT Veronica Costello MD LAB - CHEMISTRY ORDE RAISA [address] [phone] * (ABNORMAL) BASIC METABOLIC PANEL (CALCIUM TOTAL) (09/11/2017 4:37 AM CDT) BUN 39(H) 7 - 26 mg/dL 09/11/2017 5:25 AM [facility] Creatinine 0.8 0.6 - 1.2 mg/dL 09/11/2017 5:25 AM [facility] Sodium 142 136 - 145 mmol/L 09/11/2017 5:25 AM [facility] Potassium 5.5(H) 3.5 - 4.5 mmol/L 09/11/2017 5:25 AM [facility] Chloride 101 98 - 107 mmol/L 09/11/2017 5:25 AM [facility] CO2 25 22 - 29 mmol/L 09/11/2017 5:25 AM [facility] Glucose 123(H) 70 - 115 mg/dL 09/11/2017 5:25 AM T [facility] Calcium 8.9 8.4 - 10.2 mg/dL 09/11/2017 5:25 AM CDT [facility] Anion Gap 22(H) 8 - 18 09/11/2017 5:25 AM T [facility] BUN/Creatinine Ratio 49(H) 7 - 23 09/11/2017 5:25 AM [facility] Osmolality Calculated 305(H) 270 - 300 mOsm/kg 09/11/2017 5:25 AM T [facility] eGFR >60 >60 mL/min/1.7 3 m2 09/11/2017 5:25 AM [facility] Blood BLOOD SPECIMEN / Unknown Venipuncture / Unknown 09/11/2017 4:37 AM CDT 09/11/2017 4:55 AM CDT Veronica Costello MD LAB - CHEMISTRY ROYCE KLINE [facility] [address] [place] [address] * (ABNORMAL) B-TYPE NATRIURETIC PEPTIDE (09/11/2017 4:37 AM CDT) BNP 806(H) See Comment pg/mL 09/11/2017 5:31 AM T [facility] Comment: A decision threshold of 100 pg/mL [...] - CHEMISTRY ROYCE KLINE Performing Organization Address City/State/[facility] Co de Phone Number [facility] [address] [phone] * PT-INR [facility] (09/11/2017 4:37 AM CDT) PT 14.1 12.1 - 14.8 Seconds 09/11/2017 5:15 AM CDT [facility] INR 1.1 See Comment 09/11/2017 5:15 AM CDT [facility] Comment: Suggested therapeutic range for low-intensity coumadin [...] - COAGULATION OR DERABLES Performing Organization Address [facility]/ZIP Co de Phone Number [address] [phone] * (ABNORMAL) GLUCOSE - POINT OF CARE (09/11/2017 12:01 AM CDT) Glucose WB/POC 116(H) 70 - 115 mg/dL 09/11/2017 12:21 AM CDT [facility] Blood BLOOD SPECIMEN / Unknown 09/11/2017 12:01 AM CDT 09/11/2017 12:21 AM CDT Narrative [facility] - 09/11/2017 12:21 AM CDT Polytechnic Registrar: DEE CHERY Jason Nash MD LAB - POINT OF CARE ORDERABLES Performing Organization Address [facility] Co de Phone Number [address] [phone] * (ABNORMAL) GLUCOSE - POINT OF CARE (09/10/2017 6:16 PM CDT) Glucose WB/POC 157(H) 70 - 115 mg/dL 09/10/2017 6:47 PM CDT [facility] Blood BLOOD SPECIMEN / Unknown 09/10/2017 6:16 PM CDT 09/10/2017 6:46 PM CDT Narrative [facility] - 09/10/2017 6:47 PM CDT Polytechnic Registrar: PRINCESS ??BINTA Jason Nash MD LAB - POINT OF CARE ORDERABLES Performing Organization Address City/[facility]/ZIP Co de Phone Number [address] [phone] * (ABNORMAL) GLUCOSE - POINT OF CARE (09/10/2017 12:57 PM CDT) Glucose WB/POC 141(H) 70 - 115 mg/dL 09/10/2017 1:24 PM CDT [facility] Blood BLOOD SPECIMEN / Unknown 09/10/2017 12:57 PM CDT 09/10/2017 1:24 PM CDT Narrative [facility] - 09/10/2017 1:24 PM CDT Polytechnic Registrar: PRINCESS ?KAR Jason Nash MD LAB - POINT OF CARE ORDERABLES [facility] [address] [place] [address] * (ABNORMAL) BLOOD GASES ART (09/10/2017 5:57 AM CDT) pH Arterial 7.45 7.35 - 7.45 09/10/2017 6:08 AM [facility] pCO2 Arterial 44 35 - 45 mmHg 09/10/2017 6:08 AM [facility] pO2 Arterial 80 71 - 95 mmHg 09/10/2017 6:08 AM [facility] HCO3 Arterial 30.0(H) 22.0 - 26.0 mmol/L 09/10/2017 6:08 AM [facility] TCO2 Arterial 31.3(H) 25.0 - 29.0 mmol/L 09/10/2017 6:08 AM [facility] Base Excess Arterial 5.4(H) -2.0 - 2.0 mmol/L 09/10/2017 6:08 AM [facility] Hemoglobin Arterial 8.2(L) 13.5 - 17.5 g/dL 09/10/2017 6:08 AM [facility] Oxyhemoglobin Arterial 94.5(L) 95.0 - 100.0 % 09/10/2017 6:08 AM [facility] Carboxyhemoglobin 0.3 0.0 - 3.0 % 09/10/2017 6:08 AM [facility] Methemoglobin 0.7 0.0 - 2.0 % 09/10/2017 6:08 AM [facility] FI O2 Arterial 40.0 % 09/10/2017 6:08 AM [facility] Blood, arterial ARTERIAL BLOOD SPECIMEN / Unknown Arterial Puncture / Unknown 09/10/2017 5:57 AM CDT 09/10/2017 6:05 AM CDT Delphine Waddell SILK BRUSHER-CUTTING TABLE OPERATOR [facility] LAB - BLOOD GASE S ORDERABLES [address] [phone] * (ABNORMAL) GLUCOSE - POINT OF CARE (09/10/2017 5:50 AM CDT) Glucose WB/POC 146(H) 70 - 115 mg/dL 09/10/2017 6:12 AM CDT [facility] Blood BLOOD SPECIMEN / Unknown 09/10/2017 5:50 AM CDT 09/10/2017 6:11 AM CDT Narrative [facility] - 09/10/2017 6:12 AM CDT Polytechnic Registrar: DEE ??HOA Jason Nash MD LAB - POINT OF CARE ORDERABLES Performing Organization Address [facility]/ZIP Co de Phone Number [address] [phone] * PTT [facility] (09/10/2017 5:49 AM CDT) APTT 29.7 23.0 - 38.4 Seconds 09/10/2017 5:58 AM CDT [facility] Comment: Suggested therapeutic range for full dose I.V. heparin therapy for venous thromboembolism is 66.0-91.0 seconds. Blood BLOOD SPECIMEN / Unknown Lab Venipuncture / Unknown 09/10/2017 5:49 AM CDT 09/10/2017 5:50 AM CDT Yogesh Duncan MD LAB - COAGULATION OR DERABLES [address] [phone] * (ABNORMAL) RBC MORPHOLOGY (09/10/2017 5:04 AM CDT) Platelet Estimate Adequate Adequate 09/10/2017 6:51 AM CDT [facility] Anisocytosis 1+(A) None 09/10/2017 6:[facility] Stomatocytes 2+(A) None 09/10/2017 6:51 AM [facility] Blood BLOOD SPECIMEN / Unknown Venipuncture / Unknown 09/10/2017 5:04 AM CDT 09/10/2017 5:08 AM CDT Jason Nash MD LAB - HEMATOLOGY ORD ERABLES [facility] [address] [phone] * (ABNORMAL) BASIC METABOLIC PANEL (CALCIUM TOTAL) (09/10/2017 5:04 AM CDT) BUN 36(H) 7 - 26 mg/dL 09/10/2017 5:35 AM [facility] Creatinine 0.7 0.6 - 1.2 mg/dL 09/10/2017 5:35 AM [facility] Sodium 141 136 - 145 mmol/L 09/10/2017 5:35 AM [facility] Potassium 4.8(H) 3.5 - 4.5 mmol/L 09/10/2017 5:35 AM [facility] Chloride 103 98 - 107 mmol/L 09/10/2017 5:35 AM [facility] CO2 28 22 - 29 mmol/L 09/10/2017 5:35 AM [facility] Glucose 129(H) 70 - 115 mg/dL 09/10/2017 5:35 AM [facility] Calcium 8.6 8.4 - 10.2 mg/dL 09/10/2017 5:35 AM [facility] Anion Gap 15 8 - 18 09/10/2017 5:35 AM [facility] BUN/Creatinine Ratio >50(H) 7 - 23 09/10/2017 5:35 AM [facility] Osmolality Calculated 302(H) 270 - 300 mOsm/kg 09/10/2017 5:35 AM [facility] Blood BLOOD SPECIMEN / Unknown Venipuncture / Unknown 09/10/2017 5:04 AM CDT 09/10/2017 5:08 AM CDT Jason Nash MD LAB - CHEMISTRY ROYCE KLINE [facility] Organization Address City/State/ZIP Co de Phone Number [facility] [address] [phone] * (ABNORMAL) CBC W AUTO DIFFERENTIAL (09/10/2017 5:04 AM T) WBC 11.0(H) 3.5 - 10.5 10? 3 /uL 09/10/2017 5:19 AM [facility] Comment:The WBC count is cor rected by the instrument for nRBC's RBC 2.86(L) 4.30 - 5.70 10? 6 /uL 09/10/2017 5:19 AM [facility] Hemoglobin 8.0(L) 13.5 - 17.5 g/dL 09/10/2017 5:19 AM [facility] Hematocrit 27.1(L) 39.0 - 50.0 % 09/10/2017 5:19 AM [facility] MCV 94.8 81.0 - 97.0 fL 09/10/2017 5:19 AM [facility] MCH 28.0 28.0 - 34.0 pg 09/10/2017 5:19 AM [facility] MCHC 29.5(L) 32.0 - 36.0 g/dL 09/10/2017 5:19 AM [facility] Platelet Count 249 150 - 400 10? 3 /uL 09/10/2017 5:19 AM [facility] RDW-SD 69.0(H) 36.0 - 50.0 fL 09/10/2017 5:19 AM [facility] RDW-CV 21.1(H) 11.2 - 14.8 % 09/10/2017 5:19 AM [facility] MPV 12.4 9.3 - 12.8 fL 09/10/2017 5:19 AM [facility] nRBC Absolute 0.14(H) 0 10? 3 /uL 09/10/2017 5:19 AM [facility] nRBC Auto 1.2(H) 0 /100 WBC 09/10/2017 5:19 AM [facility] Neutrophils % 83.6(H) 35.0 - 70.0 % 09/10/2017 5:19 AM [facility] Lymphocytes % 4.9(L) 19.7 - 55.1 % 09/10/2017 5:19 AM [facility] Monocytes % 9.6 3.0 - 15.0 % 09/10/2017 5:19 AM [facility] Eosinophils % 1.4 0.0 - 6.0 % 09/10/2017 5:19 AM [facility] Basophil % 0.5 0.0 - 1.5 % 09/10/2017 5:19 AM [facility] Neutrophils Absolute 9.2(H) 1.6 - 7.0 10? 3 /uL 09/10/2017 5:19 AM [facility] Lymphocyte Absolute 0.5(L) 0.8 - 2.9 10? 3 /uL 09/10/2017 5:19 AM [facility] Monocytes Absolute 1.05(H) 0.14 - 0.66 10? 3 /uL 09/10/2017 5:19 AM [facility] Eosinophils Absolute 0.15 0.00 - 0.22 10? 3 /uL 09/10/2017 5:19 AM [facility] Basophils Absolute 0.05 0.00 - 0.06 10? 3 /uL 09/10/2017 5:19 AM [facility] Immature Granulocytes % 1.5(H) 0.0 - 1.0 % 09/10/2017 5:19 AM [facility] Blood BLOOD SPECIMEN / Unknown Venipuncture / Unknown 09/10/2017 5:04 AM CDT 09/10/2017 5:08 AM T Jason Nash MD LAB - HEMATOLOGY ORD ERABLES [place] [id number] [address] [phone] * (ABNORMAL) GLUCOSE ACCUCHECK (09/09/2017 11:31 PM CDT) [facility] Signature Glucose, Fingerstick 127(H) 70-115mg/d L mg/dL [facility] (BEAKER) Comment: Insulin Protocol Polytechnic Registrar: PRICE ??HOA 09/09/2017 11:3 1 PM CDT Jason Nash MD LAB - CHEMISTRY ROYCE KLINE Performing Organization Address City/[facility]/ZIP Co de Phone Number [facility] ([facility]) * GLUCOSE ACCUCHECK (09/09/2017 5:10 PM CDT) Glucose, Fingerstick 99 70-115mg/d L mg/dL [facility] ([facility]) Comment:Polytechnic Registrar: CHRIS HOU AUNDREA 09/09/2017 5:10 PM CDT Jason Nash MD LAB - CHEMISTRY ROYCE KLINE Performing Organization Address [facility] Co de Phone Number [facility] ([facility]) * CULTURE AEROBIC (09/09/2017 3:41 PM CDT) Culture Aerobic Light Growth S [facility] Comment:Normal oropharyngeal robert Gram Stain light White Blood Cells [facility] Gram Stain No Organism Seen [facility] Bronchial Washings SPECIMEN FROM LUNG OBTAINED BY BRONCHIAL WASHING PROCEDURE / Unknown 09/09/2017 3:41 PM CDT 09/09/2017 3:47 PM CDT Narrative [facility] - 09/11/2017 6:41 AM CDT Specimen Type->Bronchial Washings Resulting Lab: ?? [facility] MICROBIOLOGY [address] [place] [address] PH: [phone] Jason Nash MD LAB - MICROBIOLOGY O RDERABLES Performing Organization Address [facility] Co de Phone Number [facility] [address] [place] [address] * XR CHEST 1VW PORTABLE (09/09/2017 3:31 PM CDT) Anatomical Region Laterality Modality Chest Other Impressions 09/09/2017 4:31 PM CDT IMPRESSION: An endotracheal tube terminates at the mid thoracic trachea. A feeding tube extends to the stomach and beyond the [id number]. A left pleural pigtail catheter is partially imaged. Small right pleural effusion is unchanged. Left lower lobe opacity has decreased representing atelectasis versus airspace disease with possible persistent pleural effusion. Interstitial opacities are unchanged representing pulmonary edema and/or pneumonia. No pneumothorax is seen. The cardiac silhouette is partially obscured. The aorta is atherosclerotic. Report dictated by Rohan Hopkins M.D. (resident physician). IDr. VIBHA M.D. have personally reviewed and interpreted this [...] extends to the stomach and beyond the [id number]. A left pleuralpigtail catheter is partially imaged. Small right pleural effusion is unchanged. Left lower lobe opacity hasdecreased representing atelectasis versus airspace disease with possiblepersistent pleural effusion. Interstitial opacities are unchangedrepresenting pulmonary edema and/or pneumonia. No pneumothorax is seen. The cardiac silhouette is partiallyobscured. The aorta is atherosclerotic. Report dictated by Rohan Hopkins M.D. (resident physician). Dr. VIBHA Stringer M.D. have personally reviewed and interpreted thisexamination/study. This report was electronically signed by VIBHA PHELPS M.D. on 09/09/20174:31 PM . Jason Nash MD DIAGNOSTIC IMAGING O RDERABLES * GLUCOSE ACCUCHECK (09/09/2017 11:57 AM CDT) Glucose, Fingerstick 79 70-115mg/d L mg/dL [facility] (BEAKER) Comment:Polytechnic Registrar: CHELA PATTERSON 09/09/2017 11:5 7 AM CDT Jason Nash MD LAB - CHEMISTRY ROYCE KLINE [facility] ([place]) * (ABNORMAL) BASIC METABOLIC PANEL (CALCIUM TOTAL) (09/09/2017 10:31 AM CDT) BUN 36(H) 7 - 26 mg/dL [facility] Creatinine 0.8 0.6 - 1.2 mg/dL [facility] Sodium 142 136 - 145 mmol/L [facility] Potassium 4.7(H) 3.5 - 4.5 mmol/L [facility] Chloride 105 98 - 107 mmol/L [facility] CO2 26 22 - 29 mmol/L [facility] Glucose 80 70 - 115 mg/dL [facility] Calcium 8.5 8.4 - 10.2 mg/dL [facility] Anion Gap 16 8 - 18 [facility] BUN/Creatinine Ratio 45(H) 7 - 23 [facility] Osmolality Calculated 301(H) 270 - 300 mOsm/kg [facility] eGFR >60 >60 mL/min/1.7 3 m2 [facility] Blood specimen (specimen) BLOOD SPECIMEN / Unknown 09/09/2017 10:31 AM CDT 09/09/2017 10:40 AM CDT Jason Nash MD LAB - CHEMISTRY ROYCE KLINE [address] [phone] * (ABNORMAL) BLOOD GASES ART (09/09/2017 8:41 AM CDT) pH Arterial 7.51(H) 7.35 - 7.45 [facility] pCO2 Arterial 38 35 - 45 mmHg [facility] pO2 Arterial 274(H) 71 - 95 mmHg [facility] HCO3 Arterial 29.2(H) 22.0 - 26.0 mmol/L [facility] TCO2 Arterial 30.4(H) 25.0 - 29.0 mmol/L [facility] Base Excess Arterial 5.7(H) -2.0 - 2.0 mmol/L [facility] Hemoglobin Arterial 7.6(L) 13.5 - 17.5 g/dL [facility] Oxyhemoglobin Arterial 98.7 95.0 - 100.0 % [facility] Carboxyhemoglobin 0.3 0.0 - 3.0 % [facility] Methemoglobin 0.5 0.0 - 2.0 % [facility] FI O2 Arterial 100.0 % [facility] Blood specimen (specimen) BLOOD SPECIMEN / Unknown 09/09/2017 8:41 AM CDT 09/09/2017 8:45 AM CDT Narrative [facility] - 09/09/2017 8:47 AM CDT FIO2->100 Jason Nash MD LAB - BLOOD GASES OR DERABLES [address] [phone] * (ABNORMAL) GLUCOSE ACCUCHECK (09/09/2017 6:15 AM CDT) Glucose, Fingerstick 133(H) 70-115mg/d L mg/dL [facility] RALVikki (BEAKER) Comment:Polytechnic Registrar: CARLOS CARTAGENA 09/09/2017 6:15 AM CDT Jason Nash MD LAB - CHEMISTRY ORDE RABLES [facility] RALVikki ([place]) * XR CHEST 1VW PORTABLE (09/09/2017 4:23 AM CDT) Anatomical Region Laterality Modality Chest Other Impressions 09/09/2017 2:02 PM CDT IMPRESSION: There is interval intubation with tip of endotracheal tube terminating at the mid thoracic trachea. A feeding tube extends to the stomach and beyond the [id number]. A left pleural pigtail catheter is unchanged in position. Small right pleural effusion is unchanged. There is left lower lobe atelectasis versus airspace disease with possible persistent pleural effusion. Interstitial opacities have decreased representing pulmonary edema and/or pneumonia. No pneumothorax is seen. The cardiac silhouette is partially obscured. The aorta is atherosclerotic. Report dictated by Rohan Hopkins M.D. (resident physician). Dr. VIBHA Stringer M.D. have personally reviewed [...] tube extends to the stomach and beyondthe mjydv-[id number]. A left pleural pigtail catheter is unchanged inposition. Small right pleural effusion is unchanged. There is left lower lobeatelectasis versus airspace disease with possible persistent pleuraleffusion. Interstitial opacities have decreased representing pulmonaryedema and/or pneumonia. No pneumothorax is seen. The cardiac silhouette is partially obscured. The aorta isatherosclerotic. Report dictated by Rohan Hopkins M.D. (resident physician). Dr. VIBHA Stringer M.D. have personally reviewed and interpreted thisexamination/study. This report was electronically signed by VIBHA PHELPS M.D. on 09/09/20172:02 PM . Delphine Waddell SILK BRUSHER-CUTTING TABLE OPERATOR [facility]AGI NG ORDERABLES * (ABNORMAL) DIFFERENTIAL MANUAL (09/09/2017 4:22 AM CDT) WBC (corrected for NRBC) 18.9 10? 3 /uL [facility] Total Cell Count 100 [facility] Neutrophils Absolute Manual 14.55(H) 1.60 - 7.00 10? 3 /uL [facility] Comment:(BANDS+SEGS) x WBC = NEUT # (ANC) Lymphocyte Absolute Manual 1.70 0.80 - 2.90 10? 3 /uL [facility] Monocytes Absolute Manual 2.46(H) 0.14 - 0.66 10? 3 /uL [facility] Neutrophil % Manual 77(H) 30 - 60 % [facility] Lymphocyte % Manual 9(L) 20 - 45 % [facility] Monocytes % Manual 13(H) 2 - 10 % [facility] Metamyelocyte % Manual 1(H) 0 % [facility] Platelet Estimate Increased (A) Adequate [facility] Anisocytosis Occasiona l(A) None [facility] Blood specimen (specimen) BLOOD SPECIMEN / Unknown 09/09/2017 4:22 AM CDT 09/09/2017 4:27 AM CDT Jason Nash MD LAB - HEMATOLOGY ORD ERABLES [facility] [address] [phone] * (ABNORMAL) CBC W AUTO DIFFERENTIAL (09/09/2017 4:22 AM CDT) WBC 18.9(H) 3.5 - 10.5 10? 3 /uL [facility] Comment: The WBC count is corrected by the instrument for nRBC's All CBC parameters have been checked. RBC 3.27(L) 4.30 - 5.70 10? 6 /uL [facility] Hemoglobin 9.1(L) 13.5 - 17.5 g/dL [facility] Hematocrit 31.2(L) 39.0 - 50.0 % [facility] MCV 95.4 81.0 - 97.0 fL [facility] MCH 27.8(L) 28.0 - 34.0 pg [facility] MCHC 29.2(L) 32.0 - 36.0 g/dL [facility] Platelet Count 426(H) 150 - 400 10? 3 /uL [facility] RDW-SD 66.4(H) 36.0 - 50.0 fL [facility] RDW-CV 20.4(H) 11.2 - 14.8 % [facility] MPV 12.8 9.3 - 12.8 fL [facility] nRBC Absolute 0.45(H) 0 10? 3 /uL [facility] nRBC Auto 2.4(H) 0 /100 WBC [facility] Blood specimen (specimen) BLOOD SPECIMEN / Unknown 09/09/2017 4:22 AM CDT 09/09/2017 4:27 AM CDT Jason Nash MD LAB - HEMATOLOGY ORD ERABLES Performing Organization Address [facility]/ZIP Co de Phone Number [address] [phone] * (ABNORMAL) PT-INR [facility] (09/09/2017 4:22 AM CDT) PT 15.8(H) 12.1 - 14.8 Seconds [facility] INR 1.3 See Comment [facility] Comment: Suggested therapeutic range for low-intensity coumadin therapy for venous thromboembolism prophylaxis is an INR of 2.0-3.0. ??For high risk patients (Mitral Valve Prosthesis, Atrial Fibrillation, history of TIA/stroke), suggested prophylactic therapeutic range is an INR of 2.5-3.5. Blood specimen (specimen) BLOOD SPECIMEN / Unknown 09/09/2017 4:22 AM CDT 09/09/2017 4:27 AM CDT Narrative [facility] - 09/09/2017 4:43 AM CDT Is patient on Heparin, Argatroban or Dabigatran?->N Jason Nash MD LAB - COAGULATION OR DERABLES Performing Organization Address [facility]/ZIP Co de Phone Number [address] [phone] * (ABNORMAL) BLOOD GASES ART (09/09/2017 4:22 AM CDT) pH Arterial 7.41 7.35 - 7.45 [facility] pCO2 Arterial 45 35 - 45 mmHg [facility] pO2 Arterial 65(L) 71 - 95 mmHg [facility] HCO3 Arterial 27.4(H) 22.0 - 26.0 mmol/L [facility] TCO2 Arterial 28.8 25.0 - 29.0 mmol/L [facility] Base Excess Arterial 2.4(H) -2.0 - 2.0 mmol/L [facility] Hemoglobin Arterial 8.6(L) 13.5 - 17.5 g/dL [facility] Oxyhemoglobin Arterial 90.7(L) 95.0 - 100.0 % [facility] Carboxyhemoglobin 0.3 0.0 - 3.0 % [facility] Methemoglobin 0.3 0.0 - 2.0 % [facility] FI O2 Arterial 100.0 % [facility] Blood specimen (specimen) BLOOD SPECIMEN / Unknown 09/09/2017 4:22 AM CDT 09/09/2017 4:45 AM CDT Delphine Waddell SILK BRUSHER-CUTTING TABLE OPERATOR [facility] - BLOOD GASE S ORDERABLES Performing Organization Address City/State/[facility] Co de Phone Number [address] [phone] * (ABNORMAL) BASIC METABOLIC PANEL (CALCIUM TOTAL) (09/09/2017 4:22 AM CDT) BUN 35(H) 7 - 26 mg/dL [facility] Creatinine 0.8 0.6 - 1.2 mg/dL [facility] Sodium 140 136 - 145 mmol/L [facility] Potassium 5.7(H) 3.5 - 4.5 mmol/L [facility] Chloride 104 98 - 107 mmol/L [facility] CO2 24 22 - 29 mmol/L [facility] Glucose 238(H) 70 - 115 mg/dL [facility] Calcium 8.9 8.4 - 10.2 mg/dL [facility] Anion Gap 18 8 - 18 [facility] BUN/Creatinine Ratio 44(H) 7 - 23 [facility] Osmolality Calculated 306(H) 270 - 300 mOsm/kg [facility] eGFR >60 >60 mL/min/1.7 3 m2 [facility] Blood specimen (specimen) BLOOD SPECIMEN / Unknown 09/09/2017 4:22 AM CDT 09/09/2017 4:27 AM CDT Jason Nash MD LAB - CHEMISTRY ROYCE KLINE Performing Organization Address [facility]/State/ZIP Co de Phone Number [facility] [address] [place] [address], [facility] [phone] * CBC W AUTO DIFFERENTIAL (09/09/2017 4:22 AM CDT) Blood specimen (specimen) BLOOD SPECIMEN / Unknown 09/09/2017 4:22 AM CDT Narrative [facility] - 09/09/2017 5:12 AM CDT The following orders were created for panel order CBC w Differential. Procedure ? Abnormality ? Status ? --------- ? ------ ? CBC WITH DIFFERENTIAL[[id number]] ? Abnormal ?Final result ? MANUAL DIFFERENTIAL[[id number]] ? Abnormal ?Final result ? Please view results for these tests on the individual orders. Jason Nash MD LAB - HEMATOLOGY RAFFY SNOWDEN Performing Organization Address [facility]/State/ZIP Co de Phone Number [facility] [address] [place] [address], [facility] * XR CHEST 1VW PORTABLE (09/09/2017 3:48 AM CDT) Anatomical Region Laterality Modality Chest Other Impressions 09/09/2017 1:59 PM CDT IMPRESSION: A feeding tube extends to the stomach and beyond the yooul-js-ilsb. A left pleural pigtail catheter is unchanged [...] atherosclerotic. Report dictated by Rohan Hopkins MD (resident physician). Dr. VIBHA Stringer M.D. have personally reviewed [...] extends to the stomach and beyond the vdleo-dp-icao. A leftpleural pigtail catheter is unchanged in [...] atherosclerotic. Report dictated by Rohan Hopkins MD (resident physician). Dr. VIBHA Stringer M.D. have personally reviewed and interpreted thisexamination/study. This report was electronically signed by VIBAH PHELPS M.D. on 09/09/20171:59 PM . Jason Nash MD DIAGNOSTIC IMAGING O RDERABLES * (ABNORMAL) GLUCOSE ACCUCHECK (09/09/2017 12:56 AM CDT) Glucose, Fingerstick 136(H) 70-115mg/d L mg/dL [facility] ([facility]) Comment:Polytechnic Registrar: CARLOS VALVERDEISABELLA 09/09/2017 12:5 6 AM CDT Jason Nash MD LAB - CHEMISTRY ROYCE KLINE Performing Organization Address [facility] Co de Phone Number [facility] ([facility]) * (ABNORMAL) GLUCOSE ACCUCHECK (09/08/2017 6:08 PM CDT) Glucose, Fingerstick 130(H) 70-115mg/d L mg/dL [facility] ([facility]) Comment:Polytechnic Registrar: MARCELL ST DAKSHA 09/08/2017 6:08 PM CDT Jason Nash MD LAB - CHEMISTRY ROYCE KLINE Performing Organization Address [facility] de Phone Number [facility] ([facility]) * (ABNORMAL) GLUCOSE ACCUCHECK (09/08/2017 12:39 PM CDT) Glucose, Fingerstick 120(H) 70-115mg/d L mg/dL [facility] ([facility]) Comment:Polytechnic Registrar: MICHELA PENNINGTON 09/08/2017 12:3 9 PM CDT Jason Nash MD LAB - CHEMISTRY ROYCE KLINE Performing Organization Address [facility] de Phone Number [facility] ([facility]) * LD BODY FLUID ([facility] ONLY) (09/08/2017 12:35 PM CDT) LD Fluid 172 Not Established For Fluids Units/L [facility] Comment:The reference range and other method performance specifications have not been established for this fluid. The test result must be integrated into the clinical context for interpretation. Pleural fluid specimen (specimen) PLEURAL FLUID / Unknown 09/08/2017 12:35 PM CDT 09/08/2017 12:48 PM CDT Jason Nash MD LAB - BODY FLUID ORD ERABLES Performing Organization Address [facility]/ZIP Co de Phone Number [address] [phone] * GLUCOSE BODY FLUID ([facility] ONLY) (09/08/2017 12:35 PM CDT) Glucose Fluid 145 Not Established For Fluids mg/dL [facility] Comment:The reference range and other method performance specifications have not been established for this fluid. The test result must be integrated into the clinical context for interpretation. Pleural fluid specimen (specimen) PLEURAL FLUID / Unknown 09/08/2017 12:35 PM CDT 09/08/2017 12:48 PM CDT Jason Nash MD LAB - BODY FLUID ORD ERABLES Performing Organization Address [facility] de Phone Number [address] [phone] * PROTEIN FLUID (09/08/2017 12:35 PM CDT) Protein Fluid 1.5 Not Established For Fluids g/dL [facility] Comment:The reference range and other method performance specifications have not been established for this fluid. The test result must be integrated into the clinical context for interpretation. Pleural fluid specimen (specimen) PLEURAL FLUID / Unknown 09/08/2017 12:35 PM CDT 09/08/2017 12:48 PM CDT Jason Nash MD LAB - BODY FLUID ORD ERABLES Performing Organization Address [facility] Co de Phone Number [address] [phone] * (ABNORMAL) CELL COUNT FLUID (09/08/2017 12:35 PM CDT) Color Fluid Angwin(A) Colorless, Straw [facility] Clarity Fluid Slighty Cloudy(A) Clear [facility] Volume Fluid 1.0 mL [facility] WBC Fluid 161 Reference Range Not Established /uL [facility] RBC Fluid 11,000 Reference Range Not Established /uL [facility] Differential Manual Differential to follow. [facility] Pleural fluid specimen (specimen) PLEURAL FLUID / Unknown 09/08/2017 12:35 PM CDT 09/08/2017 12:48 PM CDT Narrative [facility] - 09/08/2017 1:12 PM CDT No established reference ranges for WBC and RBC body fluid count. Jason Nash MD LAB - [place] [address], [facility] [phone] * DIFFERENTIAL MANUAL FLUID (09/08/2017 12:35 PM CDT) Segs % Fluid 60 % [facility] Lymphocytes % Fluid 37 % [facility] Monocytes % Fluid 3 % [facility] Pleural fluid specimen (specimen) PLEURAL FLUID / Unknown 09/08/2017 12:35 PM CDT 09/08/2017 12:48 PM CDT Narrative [facility] - 09/08/2017 2:08 PM CDT No reference ranges established for body fluid differential. Jason Nash MD LAB - BODY FLUID ORD ERAMAMTA Performing Organization Address [facility] Co de Phone Number [address] [phone] * CELL COUNT W DIFFERENTIAL FLUID (09/08/2017 12:35 PM CDT) Pleural fluid specimen (specimen) PLEURAL FLUID / Unknown 09/08/2017 12:35 PM CDT Narrative [facility] - 09/08/2017 2:08 PM CDT The following orders were created for panel order Body fluid cell count with diff. Procedure ? Abnormality ? Status ? --------- ? ------ ? Body fluid cell count wit...[[id number]] ??Abnormal ?Final result ? MANUAL DIFFERENTIAL FLUID[[id number]] ? Final result ? Please view results for these tests on the individual orders. Jason Nash MD LAB - BODY FLUID ORD [place] Performing Organization Address [facility] de Phone Number [facility] [address] * PH FLUID (09/08/2017 12:33 PM CDT) pH Fluid 7.610 Not Established For Fluids [facility] Comment:The reference range and other method performance specifications have not been established for this fluid. The test result must be integrated into the clinical context for interpretation. Fluid specimen (specimen) PLEURAL FLUID / Unknown 09/08/2017 12:33 PM CDT 09/08/2017 12:47 PM CDT Jason Nash MD LAB - BODY FLUID ORD SP Performing Organization Address [facility] de Phone Number [facility] [address] [phone] * CULTURE AEROBIC (09/08/2017 12:32 PM CDT) Culture Aerobic No Growth [facility] Gram Stain light Polymorphonuclear Cells [facility] Gram Stain No Organism Seen [facility] Pleural fluid specimen (specimen) PLEURAL FLUID / Unknown 09/08/2017 12:32 PM CDT 09/08/2017 12:48 PM CDT Narrative [facility] - 09/15/2017 11:53 AM CDT Specimen Type->Pleural Fluid Resulting Lab: ?? [facility] MICROBIOLOGY [address] [place] [address] PH: [phone] Jason Nash MD LAB - MICROBIOLOGY O RDERABLES [facility] [address] [place] [address], [facility] [phone] * XR CHEST 1VW PORTABLE (09/08/2017 12:23 PM CDT) Anatomical Region Laterality Modality Chest Other Impressions 09/09/2017 8:58 AM CDT IMPRESSION: A feeding tube extends to the stomach and beyond the izmbc-on-dtgp. A tube projecting over the mediastinum to [...] partially obscured. Dictated by Omi Silverio MD (resident physician). I, Dr. SILAS NGUYỄN MD have personally [...] extends to the stomach and beyond the fagma-up-ywef. A tubeprojecting over the mediastinum to the [...] partially obscured. Dictated by Omi Silverio MD (resident physician). IDr. SILAS MD have personally reviewed and interpreted thisexamination/study. [...] the esophagus and tip is off the yhdzp-nd-ccxl. Small right and moderate to large left pleural effusions with associated atelectasis and/or airspace disease is increase on the left. There are bilateral interstitial opacities likely representing pulmonary edema or pneumonia. No pneumothorax is identified. The cardiac silhouette is partially obscured. Report dictated by Rohan Hopkins M.D. (resident physician). I, Dr. VIBHA PHELPS M.D. have personally [...] of the esophagusand tip is off the wjizr-fn-myrr. Small right and moderate to large left pleural effusions with associatedatelectasis and/or airspace disease is increase on the left. There arebilateral interstitial opacities likely representing pulmonary edema orpneumonia. No pneumothorax is identified. The cardiac silhouette is partially obscured. Report dictated by Rohan Hopkins M.D. (resident physician). I, Dr. VIBHA PHELPS M.D. have personally reviewed and interpreted thisexamination/study. This report was electronically signed by VIBHA PHELPS M.D. on 09/08/201712:19 PM . Jason Nash MD DIAGNOSTIC IMAGING O RDERABLES * (ABNORMAL) GLUCOSE ACCUCHECK (09/08/2017 5:37 AM CDT) Glucose, Fingerstick 149(H) 70-115mg/d L mg/dL [facility] (BE[facility]) Comment:Polytechnic Registrar: STAZZONE C ORINNE 09/08/2017 5:37 AM CDT Jason Nash MD LAB - CHEMISTRY ROYCE KLINE [facility] ([facility]) * (ABNORMAL) GLUCOSE ACCUCHECK (09/08/2017 12:27 AM CDT) Glucose, Fingerstick 143(H) 70-115mg/d L mg/dL [facility] ([facility]) Comment:Polytechnic Registrar: STAZZONE C ORINNE 09/08/2017 12:2 7 AM CDT Jason Nash MD LAB - CHEMISTRY ROYCE KLINE [facility] * (ABNORMAL) GLUCOSE ACCUCHECK (09/07/2017 4:22 PM CDT) Glucose, Fingerstick 150(H) 70-115mg/d L mg/dL [facility] ([place]) Comment:Polytechnic Registrar: MARCELL RIVERA 09/07/2017 4:22 PM CDT Jason Nash MD LAB - CHEMISTRY ROYCE KLINE [facility] Organization Address City/State/ZIP Co de Phone Number [facility] ([place]) * CT CHEST WO CONTRAST (09/07/2017 1:52 [...] T6-7, unchanged. Dictated by Keaton Gómez MD (resident physician). I, Dr. Jason NAIK M.D. have personally [...] T6-7, unchanged. Dictated by Keaton Gómez MD (resident physician). I, Dr. Jason NAIK M.D. have personally reviewed and interpreted thisexamination/study. This report was electronically signed by Jason NAIK M.D. on09/07/2017 3:14 PM . Jason Nash MD CT ORDERABLES * (ABNORMAL) GLUCOSE ACCUCHECK (09/07/2017 11:43 AM CDT) Glucose, Fingerstick 140(H) 70-115mg/d L mg/dL [facility] Comment:Polytechnic Registrar: MARCELL RIVERA 09/07/2017 11:4 3 AM CDT Jason Nash MD LAB - CHEMISTRY ROYCE KLINE Performing Organization Address [facility] Co de Phone Number [facility] ([facility]) * (ABNORMAL) GLUCOSE ACCUCHECK (09/07/2017 5:29 AM CDT) Glucose, Fingerstick 171(H) 70-115mg/d L mg/dL [facility] ([facility]) Comment:Polytechnic Registrar: FAISAL DAVIS MAYCO 09/07/2017 5:29 AM CDT Jason Nash MD LAB - CHEMISTRY ROYCE KLINE Performing Organization Address [facility] de Phone Number [facility] ([facility]) * XR CHEST 1VW PORTABLE (09/07/2017 5:04 AM CDT) Anatomical Region Laterality Modality Chest Other Impressions 09/07/2017 12:35 PM CDT IMPRESSION: Right internal jugular approach central venous catheters superimposes the superior vena cava. Endotracheal tube terminates at the mid thoracic trachea. A gastric tube has been removed and a feeding tube follows the course of the esophagus and tip is off the fhqcu-no-wkdf. Small right and moderate left pleural effusions with associated atelectasis and/or airspace disease is unchanged. There are bilateral interstitial and airspace opacities likely representing pulmonary edema or pneumonia. No pneumothorax is identified. The cardiac silhouette is partly obscured. Report dictated by Rohan Hopkins M.D. (resident physician). I, Dr. SULLY RUANO M.D. have personally [...] the esophagus and tip is off the lerdi-aq-ocjp. Small right and moderate left pleural effusions with associatedatelectasis and/or airspace disease is unchanged. There are bilateralinterstitial and airspace opacities likely representing pulmonary edema orpneumonia. No pneumothorax is identified. The cardiac silhouette is partly obscured. Report dictated by Rohan Hopkins M.D. (resident physician). I, Dr. SULLY RUANO M.D. have personally reviewed and interpretedthis examination/study. This report was electronically signed by SULLY RUANO M.D. on09/07/2017 12:35 PM . Jason Nash MD DIAGNOSTIC IMAGING O RDERABLES * PTT [facility] (09/07/2017 4:28 AM CDT) APTT 32.8 23.0 - 38.4 Seconds [facility] Comment:Suggested therapeuti c range for full dose I.V. heparin therapy for venous thromboembolism is 66.0-91.0 seconds. Blood specimen (specimen) BLOOD SPECIMEN / Unknown 09/07/2017 4:28 AM CDT 09/07/2017 4:35 AM CDT Narrative [facility] - 09/07/2017 4:59 AM CDT Please ensure that the aPTT specimen is received in the clinical lab within 1 hour of collection if it is used for therapeutic heparin monitoring. Processing of heparinized specimens older than 1 hour may result in inaccurate test results. Is patient on Heparin, Argatroban or Dabigatran?->N Jason Nash MD LAB - COAGULATION OR DERABLES Performing Organization Address [facility]/ZIP Co de Phone Number [address] [phone] * (ABNORMAL) PT-INR [facility] (09/07/2017 4:28 AM CDT) PT 18.8(H) 12.1 - 14.8 Seconds [facility] INR 1.6 See Comment [facility] Comment: Suggested therapeutic range for low-intensity coumadin therapy for venous thromboembolism prophylaxis is an INR of 2.0-3.0. ??For high risk patients (Mitral Valve Prosthesis, Atrial Fibrillation, history of TIA/stroke), suggested prophylactic therapeutic range is an INR of 2.5-3.5. Blood specimen (specimen) BLOOD SPECIMEN / Unknown 09/07/2017 4:28 AM CDT 09/07/2017 4:35 AM CDT Narrative [facility] - 09/07/2017 4:58 AM CDT Is patient on Heparin, Argatroban or Dabigatran?->N Jason Nash MD LAB - COAGULATION OR DERABLES Performing Organization Address [facility] Co de Phone Number [address] [phone] * PROCALCITONIN LEVEL (09/07/2017 4:28 AM CDT) Procalcitonin 0.47 [facility] Blood specimen (specimen) BLOOD SPECIMEN / Unknown 09/07/2017 4:28 AM CDT 09/07/2017 4:35 AM CDT [facility] - 09/07/2017 5:53 AM CDT The change [...] Change in Procalcitonin Calculator is available at [email or web address] ?? If clinical picture has not improved and PCT remains high, reevaluate and consider treatment failure or other causes. Jason Nash MD LAB - CHEMISTRY ROYCE KLINE [address] [phone] * (ABNORMAL) BASIC METABOLIC PANEL (CALCIUM TOTAL) (09/07/2017 4:28 AM CDT) BUN 24 7 - 26 mg/dL [facility] Creatinine 0.7 0.6 - 1.2 mg/dL [facility] Sodium 140 136 - 145 mmol/L [facility] Potassium 4.6(H) 3.5 - 4.5 mmol/L [facility] Chloride 106 98 - 107 mmol/L [facility] CO2 25 22 - 29 mmol/L [facility] Glucose 156(H) 70 - 115 mg/dL [facility] Calcium 8.4 8.4 - 10.2 mg/dL [facility] Anion Gap 14 8 - 18 [facility] BUN/Creatinine Ratio 34(H) 7 - 23 [facility] Osmolality Calculated 297 270 - 300 mOsm/kg [facility] eGFR >60 >60 mL/min/1.7 3 m2 [facility] Blood specimen (specimen) BLOOD SPECIMEN / Unknown 09/07/2017 4:28 AM CDT 09/07/2017 4:35 AM CDT Jason Nash MD LAB - CHEMISTRY ROYCE KLINE Performing Organization Address [facility]/ZIP Co de Phone Number [address] [phone] * (ABNORMAL) MAGNESIUM BLOOD (09/07/2017 4:28 AM CDT) Magnesium 1.4(L) 1.6 - 2.6 mg/dL [facility] Blood specimen (specimen) BLOOD SPECIMEN / Unknown 09/07/2017 4:28 AM CDT 09/07/2017 4:35 AM CDT Jason Nash MD LAB - CHEMISTRY ROYCE KLINE Performing Organization Address [facility]/ZIP Co de Phone Number [address] [phone] * PHOSPHORUS BLOOD (09/07/2017 4:28 AM CDT) Phosphorus 2.9 2.3 - 4.7 mg/dL [facility] Blood specimen (specimen) BLOOD SPECIMEN / Unknown 09/07/2017 4:28 AM CDT 09/07/2017 4:35 AM CDT Jason Nash MD LAB - CHEMISTRY ROYCE KLINE Performing Organization Address [facility] Co de Phone Number [address] [phone] * (ABNORMAL) CBC W AUTO DIFFERENTIAL (09/07/2017 4:28 AM CDT) WBC 10.1 3.5 - 10.5 10? 3 /uL [facility] Comment:Results are confirme d by repeat analysis. RBC 2.72(L) 4.30 - 5.70 10? 6 /uL [facility] Hemoglobin 7.4(L) 13.5 - 17.5 g/dL [facility] Hematocrit 25.1(L) 39.0 - 50.0 % [facility] MCV 92.3 81.0 - 97.0 fL [facility] MCH 27.2(L) 28.0 - 34.0 pg [facility] MCHC 29.5(L) 32.0 - 36.0 g/dL [facility] Platelet Count 313 150 - 400 10? 3 /uL [facility] RDW-SD 61.9(H) 36.0 - 50.0 fL [facility] RDW-CV 19.0(H) 11.2 - 14.8 % [facility] MPV 12.0 9.3 - 12.8 fL [facility] nRBC Absolute 0.03(H) 0 10? 3 /uL [facility] nRBC Auto 0.3(H) 0 /100 WBC [facility] Neutrophils % 90.7(H) 35.0 - 70.0 % [facility] Lymphocytes % 4.1(L) 19.7 - 55.1 % [facility] Monocytes % 5.0 3.0 - 15.0 % [facility] Eosinophils % 0.0 0.0 - 6.0 % [facility] Basophil % 0.2 0.0 - 1.5 % [facility] Neutrophils Absolute 9.1(H) 1.6 - 7.0 10? 3 /uL [facility] Lymphocyte Absolute 0.4(L) 0.8 - 2.9 10? 3 /uL [facility] Monocytes Absolute 0.50 0.14 - 0.66 10? 3 /uL [facility] Eosinophils Absolute 0.00 0.00 - 0.22 10? 3 /uL [facility] Basophils Absolute 0.02 0.00 - 0.06 10? 3 /uL [facility] Immature Granulocytes % 1.4(H) 0.0 - 1.0 % [facility] Blood specimen (specimen) BLOOD SPECIMEN / Unknown 09/07/2017 4:28 AM CDT 09/07/2017 4:35 AM CDT Jason Nash MD LAB - HEMATOLOGY ORD ERABLES Performing Organization Address [facility] de Phone Number [facility] [address] [phone] * CBC W AUTO DIFFERENTIAL (09/07/2017 4:28 AM CDT) Blood specimen (specimen) BLOOD SPECIMEN / Unknown 09/07/2017 4:28 AM CDT Narrative [facility] - 09/07/2017 4:43 AM CDT The following orders were created for panel order CBC w Differential. Procedure ? Abnormality ? Status ? --------- ? ------ ? CBC WITH DIFFERENTIAL[[id number]] ? Abnormal ?Final result ? Please view results for these tests on the individual orders. Jason Nash MD LAB - HEMATOLOGY RAFFY SNOWDEN Performing Organization Address [facility] de Phone Number [facility] [address] * (ABNORMAL) GLUCOSE ACCUCHECK (09/07/2017 12:08 AM CDT) Glucose, Fingerstick 143(H) 70-115mg/d L mg/dL [facility] ([place]) Comment:Polytechnic Registrar: FAISAL MAO 09/07/2017 12:0 8 AM CDT Jason Nash MD LAB - CHEMISTRY ROYCE KLINE Performing Organization Address [facility] de Phone Number [facility] ([place]) * EKG 12-LEAD (09/07/2017 12:00 AM CDT) EKG [facility] Comment: Exam Date/Time: ?? Sep 07 [...] No lead misplacement noted Reconfirmed by Mauri ROY, FREDA ([id number]), photograph editor Robi Pavon ([id number]) on 09/10/2017 6:07:09 PM Also confirmed by Mauri ROY, FREDA ([id number]), photograph editor Robi Pavon ([id number]) ??on 09/10/2017 6:07:41 PM Referred By: REFERRING NO ? Confirmed By:FREDA ROY M.D. 09/07/2017 Rebecca Melendez [facility] ECG ORDERABLES [facility] * XR ABDOMEN KUB PORTABLE (09/06/2017 [...] AM. Report dictated by Rohan Hopkins MD (resident physician). I, Dr. SULLY RUANO M.D. have personally [...] AM. Report dictated by Rohan Hopkins MD (resident physician). I, Dr. SULLY RUANO M.D. have personally reviewed and interpretedthis examination/study. This report was electronically signed by SULLY RUANO M.D. on09/07/2017 12:20 PM . Rebecca Melendez SILK [facility]USHER-CUTTING TABLE OPERATOR FIRST DIAGNOSTIC IMAGIN G ORDERABLES * (ABNORMAL) BLOOD GASES ART COMPLETE [facility] (09/06/2017 4:21 PM CDT) pH Arterial 7.38 7.35 - 7.45 [facility] pCO2 Arterial 47(H) 35 - 45 mmHg [facility] pO2 Arterial 169(H) 71 - 95 mmHg [facility] HCO3 Arterial 27.0(H) 22.0 - 26.0 mmol/L [facility] TCO2 Arterial 28.4 25.0 - 29.0 mmol/L [facility] Base Excess Arterial 1.5 -2.0 - 2.0 mmol/L [facility] Hemoglobin Arterial 8.6(L) 13.5 - 17.5 g/dL [facility] Oxyhemoglobin Arterial 97.9 95.0 - 100.0 % [facility] Carboxyhemoglobin 0.3 0.0 - 3.0 % [facility] Methemoglobin 0.3 0.0 - 2.0 % [facility] FI O2 Arterial 50.0 % [facility] Ionized Calcium Whole Blood 1.14 mmol/L [facility] [facility] Adjusted Ionized Calcium 1.13(L) 1.19 - 1.34 mmol/L [facility] Sodium Whole Blood 140 135 - 145 mmol/L [facility] Potassium Whole Blood 4.2 3.5 - 5.5 mmol/L [facility] Chloride Whole Blood 109 101 - 111 mmol/L [facility] Glucose Whole Blood 134(H) 70 - 110 mg/dL [facility] Lactic Acid Whole Blood 2.5 0.5 - 3.4 mmol/L [facility] Blood specimen (specimen) 09/06/2017 4:21 PM CDT 09/06/2017 4:30 PM CDT Jason Nash MD LAB - BLOOD GASES OR DERABLES [address] [phone] * (ABNORMAL) GLUCOSE ACCUCHECK (09/06/2017 4:19 PM CDT) Glucose, Fingerstick 128(H) 70-115mg/d L mg/dL [facility] ([facility]) Comment:Polytechnic Registrar: STONE ALI 09/06/2017 4:19 PM CDT Jason Nash MD LAB - CHEMISTRY ORDE RABANGELIA [facility] ([facility]) * XR CHEST 1VW PORTABLE (09/06/2017 2:48 PM CDT) Anatomical Region Laterality Modality Chest Other Impressions 09/06/2017 4:13 PM CDT IMPRESSION: Right internal jugular approach central venous catheters superimposes the superior vena cava. Endotracheal tube terminates at the mid thoracic trachea. A gastric tube and a feeding tube follows the course of the esophagus and tips are off the [id number]. There is a moderate left pleural effusion, intervally decreased. There is a small right pleural effusion, unchanged. There are bilateral interstitial and airspace opacities likely representing pulmonary edema or pneumonia. No pneumothorax is identified. The cardiac silhouette is partly obscured. Report dictated by Rohan Hopkins M.D. (resident physician). Dr. SILAS Stringer MD have personally reviewed [...] of theesophagus and tips are off the [id number]. There is a moderate left pleural effusion, intervally decreased. There lisa small right pleural effusion, unchanged. There are bilateralinterstitial and airspace opacities likely representing pulmonary edema orpneumonia. No pneumothorax is identified. The cardiac silhouette is partly obscured. Report dictated by Rohan Hopkins M.D. (resident physician). Dr. SILAS Stringer MD have personally reviewed and interpreted thisexamination/study. This report was electronically signed by SILAS NGUYỄN MD on 09/06/20174:13 PM . Jason Nash MD DIAGNOSTIC IMAGING O RDERABLES * CULTURE LEGIONELLA (09/06/2017 2:05 PM CDT) Culture Legionella No Growth Legionella 1 week. [facility] Bronchial Washings SPECIMEN FROM LUNG OBTAINED BY BRONCHIAL WASHING PROCEDURE / Unknown 09/06/2017 2:05 PM CDT 09/06/2017 2:23 PM CDT Narrative [facility] - 09/13/2017 8:55 AM CDT Specimen Type->Bronchial Washings Resulting Lab: ?? [facility] [address] [place] [address] PH: [phone] Jason Nash MD LAB - MICROBIOLOGY O RDJANUSZBLES [address] [phone] * CULTURE AEROBIC (09/06/2017 2:05 PM CDT) Culture Aerobic No Growth [facility] Gram Stain Moderate White Blood Cells [facility] Gram Stain No Organism Seen [facility] Bronchial Washings SPECIMEN FROM LUNG OBTAINED BY BRONCHIAL WASHING PROCEDURE / Unknown 09/06/2017 2:05 PM CDT 09/06/2017 2:23 PM CDT Narrative [facility] - 09/08/2017 11:09 AM CDT Specimen Type->Bronchial Washings Resulting Lab: ?? [facility] [address] [place] [address] PH: [phone] Jason Nash MD LAB - MICROBIOLOGY O RDJANUSZBLES Performing Organization Address City/[facility]/ZIP Co de Phone Number [address] [phone] * CULTURE BLOOD (09/06/2017 12:35 PM CDT) Culture Blood No Growth at 5 days [facility] Blood specimen (specimen) DEVICE / Unknown 09/06/2017 12:35 PM CDT 09/06/2017 12:44 PM CDT Narrative [facility] - 09/11/2017 4:45 PM CDT Resulting Lab: ?? [facility] [address] [place] [address] PH: [phone] Bandar Mansfield MD LAB - [place] [address], [facility] [phone] * CULTURE BLOOD (09/06/2017 12:11 PM CDT) Culture Blood No Growth at 5 days [facility] Blood specimen (specimen) (Blood Line - Arterial) 09/06/2017 12:11 PM CDT 09/06/2017 12:16 PM CDT Narrative [facility] - 09/11/2017 4:30 PM CDT Draw 15 minutes after Culture 1 from a different site Resulting Lab: ?? [facility] [address] [place] [address] PH: [phone] Bandar Mansfield MD LAB - MICROBIOLOGY ORDERABLES [facility] [address] [employer] [address] [place], [place] [id number] [place] [address] * (ABNORMAL) BLOOD GASES ART COMPLETE [facility] (09/06/2017 12:11 PM CDT) pH Arterial 7.28(L) 7.35 - 7.45 [facility] pCO2 Arterial 55(H) 35 - 45 mmHg [facility] pO2 Arterial 152(H) 71 - 95 mmHg [facility] HCO3 Arterial 25.0 22.0 - 26.0 mmol/L [facility] TCO2 Arterial 26.7 25.0 - 29.0 mmol/L [facility] Base Excess Arterial -2.0 -2.0 - 2.0 mmol/L [facility] Hemoglobin Arterial 8.6(L) 13.5 - 17.5 g/dL [facility] Oxyhemoglobin Arterial 97.6 95.0 - 100.0 % [facility] Carboxyhemoglobin 0.3 0.0 - 3.0 % [facility] Methemoglobin 0.6 0.0 - 2.0 % [facility] FI O2 Arterial 100.0 % [facility] Ionized Calcium Whole Blood 1.18 mmol/L [facility] Adjusted Ionized Calcium 1.12(L) 1.19 - 1.34 mmol/L [facility] Sodium Whole Blood 142 135 - 145 mmol/L [facility] Potassium Whole Blood 3.8 3.5 - 5.5 mmol/L [facility] Chloride Whole Blood 106 101 - 111 mmol/L [facility] Glucose Whole Blood 166(H) 70 - 110 mg/dL [facility] Lactic Acid Whole Blood 2.8(HH) 0.5 - 2.0 mmol/L [facility] Comment:Critical value(s) bailey ve been verified and called to and read back by Emma Ledezma at 1223 on 09/06/17. Blood specimen (specimen) 09/06/2017 12:11 PM CDT 09/06/2017 12:16 PM CDT Bandar Mansfield MD LAB - BLOOD GASES ORDERABLES Performing Organization Address [facility] Co de Phone Number [address] [phone] * (ABNORMAL) DIGOXIN LEVEL (09/06/2017 12:02 PM CDT) Digoxin <0.3(L) 0.8 - 2.0 ng/mL [facility] Comment: The casing flusher of Digoxin [employer] has stated that no immunoassay technique is suitable for quantitating digoxin in plasma/serum from patients on antibody fragment therapy. ? Blood specimen (specimen) BLOOD SPECIMEN / Unknown 09/06/2017 12:02 PM CDT 09/06/2017 12:08 PM CDT Bandar Mansfield MD LAB - CHEMISTRY OR DERABLES Performing Organization Address [facility] Co de Phone Number [address] [phone] * (ABNORMAL) PTT [facility] (09/06/2017 11:57 AM CDT) APTT 46.4(H) 23.0 - 38.4 Seconds [facility] Comment:Suggested therapeuti c range for full dose I.V. heparin therapy for venous thromboembolism is 66.0-91.0 seconds. Blood specimen (specimen) BLOOD SPECIMEN / Unknown 09/06/2017 11:57 AM CDT 09/06/2017 12:08 PM CDT Narrative [facility] - 09/06/2017 12:21 PM CDT Please ensure that the aPTT specimen is received in the clinical lab within 1 hour of collection if it is used for therapeutic heparin monitoring. Processing of heparinized specimens older than 1 hour may result in inaccurate test results. Is patient on Heparin, Argatroban or Dabigatran?->N Bandar Mansfield MD LAB - COAGULATION ORDERABLES Performing Organization Address [facility] Co de Phone Number [address] [phone] * (ABNORMAL) PT-INR [facility] (09/06/2017 11:57 AM CDT) PT 24.5(H) 12.1 - 14.8 Seconds [facility] INR 2.2 See Comment [facility] Comment: Suggested therapeutic range for low-intensity coumadin therapy for venous thromboembolism prophylaxis is an INR of 2.0-3.0. ??For high risk patients (Mitral Valve Prosthesis, Atrial Fibrillation, history of TIA/stroke), suggested prophylactic therapeutic range is an INR of 2.5-3.5. Blood specimen (specimen) BLOOD SPECIMEN / Unknown 09/06/2017 11:57 AM CDT 09/06/2017 12:08 PM CDT Narrative [facility] - 09/06/2017 12:20 PM CDT Is patient on Heparin, Argatroban or Dabigatran?->N Bandar Mansfield MD LAB - COAGULATION ORDERABLES Performing Organization Address [facility] Co de Phone Number [address] [phone] * TROPONIN I (09/06/2017 11:57 AM CDT) Troponin I 0.027 <0.032 ng/mL [facility] Blood specimen (specimen) BLOOD SPECIMEN / Unknown 09/06/2017 11:57 AM CDT 09/06/2017 12:08 PM CDT Bandar Mansfield MD LAB - CHEMISTRY OR DERABLES Performing Organization Address [facility]/ZIP Co de Phone Number [address] [phone] * (ABNORMAL) COMPREHENSIVE METABOLIC PANEL (09/06/2017 11:57 AM CDT) BUN 21 7 - 26 mg/dL [facility] Creatinine 0.7 0.6 - 1.2 mg/dL [facility] Sodium 143 136 - 145 mmol/L [facility] Potassium 3.8 3.5 - 4.5 mmol/L [facility] Chloride 108(H) 98 - 107 mmol/L [facility] CO2 20(L) 22 - 29 mmol/L [facility] Glucose 170(H) 70 - 115 mg/dL [facility] Calcium 8.5 8.4 - 10.2 mg/dL [facility] Protein Total 6.2 6.0 - 8.3 g/dL [facility] Albumin 1.8(L) 3.4 - 5.0 g/dL [facility] Bilirubin Total 0.3 0.2 - 1.2 mg/dL [facility] Alkaline Phosphatase 204(H) 40 - 150 Units/L [facility] ALT 10 0 - 55 Units/L [facility] AST 21 5 - 34 Units/L [facility] Anion Gap 19(H) 8 - 18 [facility] BUN/Creatinine Ratio 30(H) 7 - 23 [facility] Osmolality Calculated 303(H) 270 - 300 mOsm/kg [facility] Albumin/Globulin Ratio 0.4(L) 1.1 - 2.3 [facility] eGFR >60 >60 mL/min/1.7 3 m2 [facility] Blood specimen (specimen) BLOOD SPECIMEN / Unknown 09/06/2017 11:57 AM CDT 09/06/2017 12:08 PM CDT Bandar Mansfield MD LAB - CHEMISTRY OR DERABLES [facility] [address] [phone] * (ABNORMAL) CBC W AUTO DIFFERENTIAL (09/06/2017 11:57 AM CDT) WBC 27.8(H) 3.5 - 10.5 10? 3 /uL [facility] Comment:All CBC parameters h ave been checked. RBC 2.99(L) 4.30 - 5.70 10? 6 /uL [facility] Hemoglobin 8.2(L) 13.5 - 17.5 g/dL [facility] Hematocrit 28.5(L) 39.0 - 50.0 % [facility] MCV 95.3 81.0 - 97.0 fL [facility] MCH 27.4(L) 28.0 - 34.0 pg [facility] MCHC 28.8(L) 32.0 - 36.0 g/dL [facility] Platelet Count 432(H) 150 - 400 10? 3 /uL [facility] RDW-SD 64.7(H) 36.0 - 50.0 fL [facility] RDW-CV 19.1(H) 11.2 - 14.8 % [facility] MPV 12.1 9.3 - 12.8 fL [facility] nRBC Absolute 0.09(H) 0 10? 3 /uL [facility] nRBC Auto 0.3(H) 0 /100 WBC [facility] Neutrophils % 92.0(H) 35.0 - 70.0 % [facility] Lymphocytes % 5.2(L) 19.7 - 55.1 % [facility] Monocytes % 2.6(L) 3.0 - 15.0 % [facility] Eosinophils % 0.1 0.0 - 6.0 % [facility] Basophil % 0.1 0.0 - 1.5 % [facility] Neutrophils Absolute 25.6(H) 1.6 - 7.0 10? 3 /uL [facility] Lymphocyte Absolute 1.5 0.8 - 2.9 10? 3 /uL [facility] Monocytes Absolute 0.71(H) 0.14 - 0.66 10? 3 /uL [facility] Eosinophils Absolute 0.03 0.00 - 0.22 10? 3 /uL [facility] Basophils Absolute 0.04 0.00 - 0.06 10? 3 /uL [facility] Immature Granulocytes % 3.0(H) 0.0 - 1.0 % [facility] Blood specimen (specimen) BLOOD SPECIMEN / Unknown 09/06/2017 11:57 AM CDT 09/06/2017 12:08 PM CDT Bandar Mansfield MD LAB - HEMATOLOGY O RDERABLES Performing Organization Address [facility]/ZIP Co de Phone Number [address] [phone] * (ABNORMAL) LACTIC ACID BLOOD (09/06/2017 11:57 AM CDT) Lactic Acid-Stat 3.3(HH) 0.5 - 2.0 mmol/L [facility] Comment:RESULTS CALLED TO AN D READ BACK BY DONTAE MACIEL AT 1:07 PM, 09/06/2017 Blood specimen (specimen) BLOOD SPECIMEN / Unknown 09/06/2017 11:57 AM CDT 09/06/2017 12:08 PM CDT Bandar Mansfield MD LAB - CHEMISTRY OR DERABLES Performing Organization Address [facility] Co de Phone Number [address] [phone] * CBC W AUTO DIFFERENTIAL (09/06/2017 11:57 AM CDT) Blood specimen (specimen) BLOOD SPECIMEN / Unknown 09/06/2017 11:57 AM CDT Narrative [facility] - 09/06/2017 12:16 PM CDT The following orders were created for panel order CBC w Differential. Procedure ? Abnormality ? Status ? --------- ? ------ ? CBC WITH DIFFERENTIAL[[id number]] ? Abnormal ?Final result ? Please view results for these tests on the individual orders. Bandar Mansfield MD LAB - HEMATOLOGY O RDERABLES [facility] [address] [place] [address], [facility] * XR CHEST 1VW PORTABLE (09/06/2017 [...] intact. Report dictated by Rohan Hopkins M.D. (resident physician). I, Dr. VIBHA PHELPS M.D. have personally [...] intact. Report dictated by Rohan Hopkins M.D. (resident physician). I, Dr. VIBHA PHELPS M.D. have personally reviewed and interpreted thisexamination/study. This report was electronically signed by VIBHA PHELPS M.D. on 09/07/201712:31 PM . Bandar Mansfield MD DIAGNOSTIC IMAGING ORDERABLES * EKG 12-LEAD (09/06/2017 12:00 AM CDT) EKG [facility] Comment: Exam Date/Time: ?? Sep 06 [...] bpm Confirmed by MD Jaime, Aneta ([id number]), photograph editor Robi Pavon ([id number]) on 09/10/2017 5:58:12 PM Referred By: REFERRING NO ? Confirmed By:Aneta Sandoval MD 09/06/2017 Bandar Mansfield MD ECG ORDERABLES [facility] documented in this encounter Visit Diagnoses [...] and unspecified disc disorder of lumbar region Dysphasia Other speech disturbance documented in this encounter Administered Medications Inactive Administered Medications - up to 3 most recent administrations Medication Order MAR Action Action Date Dose Rate Site 0.9% NaCl injection 10 mL 10 mL, Intracatheter, PRN, Other, Starting on 09/10/17 at 0000, Until Tue09/19/17 at 1420 albuterol (PROVENTIL;VENTOLIN) (5 MG/ML) 0.5% [...] DAILY, First dose (after last modification) on Tue09/19/17 at 0900, Until Discontinued $ Given 09/19/2017 9:10 AM CDT 200 mg G Tub e aspirin (ASPIRIN) chew tablet 81 mg 81 mg, Enteral Tube, DAILY, First dose (after last modification) on Tue09/19/17 at 0900, Until Discontinued $ Given 09/19/2017 9:11 AM CDT 81 mg G Tube atorvastatin (LIPITOR) tablet 20 mg 20 mg, Enteral Tube, DAILY, First dose (after last modification) on Tue09/19/17 at 0900, Until Discontinued $ Given 09/19/2017 9:11 AM CDT 20 mg G Tube chlorhexidine (PERIDEX) 0.12 % oral solution Mouth/Throat, [...] dose on Tue09/10/17 at 0900, Until Discontinued $ Given 09/19/2017 9:12 AM CDT 20 mg $ Given 09/18/2017 8:12 AM CDT 20 mg $ Given 09/17/2017 8:53 AM CDT 20 mg G Tube glucagon (GLUCAGEN) injection 1 mg 1 mg, [...] 8:54 AM CDT 1 patch Ba ck oxyCODONE (immediate release) (ROXICODONE) tablet 5 mg 5 mg, Enteral Tube, EVERY 4 HOURS PRN, Moderate Pain, Severe Pain, Starting on 09/19/17 at 1100, Until Tue09/19/17 at 1420 $ Given 09/19/2017 12:57 PM CDT 5 mg G Tu be $ Given 09/19/2017 8:30 AM CDT 5 mg G Tube polyethylene glycol 3350 (MIRALAX) packet 17 g 17 g, Enteral Tube, DAILY PRN, Constipation, Starting on Tue09/11/17 at 0039, Until 09/19/17 at 1420, Mix in 8 ounces of water, juice, soda, coffee or tea prior to administration $ Given 09/11/2017 8:42 AM CDT 17 g G Tube senna (SENOKOT) tablet 8.6 mg 8.6 mg, Enteral Tube, 2 TIMES DAILY, 730 doses, First dose on 09/11/17 at 0045, Last dose on 09/10/18 at 0900 $ Given 09/19/2017 9:13 AM CDT 8.6 mg G Tube $ Given 09/18/2017 9:29 PM CDT 8.6 mg G Tube $ Given 09/18/2017 8:12 AM CDT 8.6 mg G Tube surgilube gel PRN, Starting on Kellen 09/15/17 at 1521, Until 09/17/17 at 0749, Intra-procedure (GI) $ Given 09/15/2017 3:21 PM CDT 10 mL documented in this encounter Active and Recently Administered Medications Times are shown in CDT. Scheduled Medication Order 09/17/2017 09/18/2017 09/19/2017 albuterol (PROVENTIL;VENTOLIN) (5 MG/ML) 0.5% nebulizer solution 2.5 mg 2.5 mg, Inhalation, EVERY 4 HOURS, First dose on 09/10/17 at 0000, Until Discontinued, Dilute prior to administration via nebulization. 0200 ($ Given - Provider: Jadon Araujo RCP)0505 ($ Given - Provider: Jadon Araujo RCP)0840 ($ Given - Provider: Taylor Coleman [facility])1341 ($ Given - Provider: Taylor Coleman COMMUNITY SPECIALIST)1725 ($ Given - Provider: Tayolr Coleman COMMUNITY SPECIALIST)2035 ($ Given - Provider: Jadon Araujo COMMUNITY SPECIALIST) 0141 ($ Given - Provider: Jadon Araujo RCP)0611 ($ Given - Provider: Jadon Araujo RCP)0839 ($ Given - Provider: Taylor Coleman COMMUNITY SPECIALIST)1259 ($ Given - Provider: Taylor Coleman COMMUNITY SPECIALIST)1650 ($ Given - Provider: Taylor Coleman COMMUNITY SPECIALIST)2019 ($ Given - Provider: Michael Callahan RCP) 0008 ($ Given - Provider: Michael Callahan RCP)0410 ($ Given - Provider: Michael Callahan RCP)0825 ($ Given - Provider: Taylor Coleman RCP)1252 ($ Given - Provider: Taylor Coleman RCP) amiodarone (CORDARONE) tablet 200 mg (CANCELED) 200 mg, Oral, 2 TIMES DAILY, First dose on Tue09/10/17 at 0900, Until Discontinued 0853 ($ Given - Provider: Nora Butcher RN)2100 ($ Given - Provider: Malaika Gonzalez RN) 0812 ($ Given - Provider: Noa Reyes, DONTAE)2130 ($ Given - Provider: Malaika Gonzalez RN) amiodarone (CORDARONE) tablet 200 mg 200 mg, Enteral Tube, 2 TIMES DAILY, First dose (after last modification) on Tue09/19/17 at 0900, Until Discontinued 0910 ($ Given - Provider: Karina Walker RN) aspirin (ASPIRIN) chew tablet 81 mg (CANCELED) 81 mg, Oral, DAILY, First dose on Tue09/10/17 at 0900, Until Discontinued 0853 ($ Given - Provider: Nora Butcher RN) 0812 ($ Given - Provider: Noa Reyes, DONTAE) aspirin (ASPIRIN) chew tablet 81 mg 81 mg, Enteral Tube, DAILY, First dose (after last modification) on Tue09/19/17 at 0900, Until Discontinued 0911 ($ Given - Provider: Karina Walker RN) atorvastatin (LIPITOR) tablet 20 mg (CANCELED) 20 mg, Oral, DAILY, First dose (after last modification) on Tue09/10/17 at 0900, Until Discontinued 0852 ($ Given - Provider: Nora Butcher RN) 0812 ($ Given - Provider: Noa Reyes, DONTAE) atorvastatin (LIPITOR) tablet 20 mg 20 mg, Enteral Tube, DAILY, First dose (after last modification) on Tue09/19/17 at 0900, Until Discontinued 0911 ($ Given - Provider: Karina Walker RN) chlorhexidine (PERIDEX) 0.12 % oral solution Mouth/Throat, 2 TIMES DAILY, First dose on 4/7/18 at 0900, Until Discontinued, Swab mouth (oral cavity) wile mechanically ventilated . WASTE DISPOSAL INSTRUCTIONS: Black Bin Disposal required. 0854 ($ Given - Provider: Nora Butcher RN)2100 ($ Given - Provider: Malaika Gonzalez RN) 0812 ($ Given - Provider: Noa Reyes, DONTAE)2130 ($ Given - Provider: Malaika Gonzalez, RN) 0911 ($ Given - Provider: Karina Walker, RN) docusate sodium (COLACE) solution 100 mg 100 [...] RN) 0812 (See Alternative - Provider: Noa Reyes, DONTAE)2130 ($ Given - Provider: Malaika Gonzalez, DONTAE) 0912 (See Alternative - Provider: Karina Walker RN) famotidine (PEPCID) tablet 20 mg(Linked Group 1) 20 mg, Oral, 2 TIMES DAILY, First dose on 09/10/17 at 0900, Until Discontinued 0853 ($ Given - Provider: Nora Butcher RN)2100 (See Alternative - Provider: Malaika Gonzalez RN) 0812 ($ Given - Provider: Noa Reyes RN)2130 (See Alternative - Provider: Malaika Gonzalez RN) 0912 ($ Given - Provider: Karina Walker RN) [...] required. 0145 (Not Administered - Provider: Grecia Bentley RN - Reason: Per Administration Instructions)0705 (Not Administered - Provider: Grecia Bentley RN - Reason: Per Administration Instructions)1248 (Not [...] RN)2141 (Removed - Provider: Malaika Gonzalez RN) 08 ($ Applied - Provider: Noa Reyes RN)2229 (Removed - Provider: Malaika Gonzalez RN) 09 ($ Applied - Provider: Karina Walker, DONTAE)2111 (Due: Removed - Provider: Karina Walker RN) magnesium sulfate 2 g in 50 mL bolus (COMPLETED) 2 g, at 25 mL/hr, Administer over 120 Minutes, Intravenous, ONCE, 1 dose, On Tue09/19/17 at 0445, Infuse at 1 gm/hr 0653 ($ New Bag/Syringe - Provider: Malaika Gonzalez RN)09 (Stopped - Provider: Karina Walker RN) potassium chloride (KLOR-CON) packet 40 mEq (COMPLETED) 40 mEq, Enteral Tube, ONCE, 1 dose, On 09/18/17 at 0230, DISSOLVE IN 120 ML OF COLD WATER OR JUICE AND DRINK SLOWLY 0449 ($ Given - Provider: Malaika Gonzalez RN) potassium chloride (KLOR-CON) packet 40 mEq (COMPLETED) 40 mEq, Enteral Tube, ONCE, 1 dose, On 09/18/17 at 0815, DISSOLVE IN 120 ML OF COLD WATER OR JUICE AND DRINK SLOWLY 0818 ($ Given - Provider: Noa Reyes RN) senna (SENOKOT) tablet 8.6 mg 8.6 mg, Enteral Tube, 2 TIMES DAILY, 730 doses, First dose on 09/11/17 at 0045, Last dose on 09/10/18 at 0900 0852 ($ Given - Provider: Nora Butcher RN)2100 ($ Given - Provider: Malaika Gonzalez RN) 08 ($ Given - Provider: Noa Reyes RN)2128 ($ Given - Provider: Malaika Gonzalez RN) 0913 ($ Given - Provider: Karina Walker, RN) PRN Medication Order 09/17/2017 09/18/2017 09/19/2017 0.9% NaCl injection 10 mL(Linked Group 2) 10 mL, Intracatheter, PRN, Other, Starting on Tue09/10/17 at 0000, Until Tue09/19/17 at 1420 dextrose [...] 1054 0316 ($ Given - Provider: Grecia Bentley RN)0919 ($ Given - Provider: Nora Butcher, DONTAE)1452 ($ Given - Provider: Nora Butcher RN)1751 ($ Given - Provider: Nora Butcher RN)2050 ($ Given - Provider: Malaika Gonzalez RN)2355 ($ Given - Provider: Malaika Gonzalez, DONTAE) 0450 ($ Given - Provider: Malaika Gonzalez, DONTAE)0832 ($ Given - Provider: Noa Reyes RN)1315 ($ Given - Provider: Noa Reyes RN)1702 ($ Given - Provider: Noa Reyes, RN)2130 ($ Given - Provider: Malaika Gonzalez RN) oxyCODONE (immediate release) (ROXICODONE) tablet 5 mg 5 mg, Enteral Tube, EVERY 4 HOURS PRN, Moderate Pain, Severe Pain, Starting on Tue09/19/17 at 1100, Until Tue09/19/17 at 1420 0830 ($ Given - Provider: Karina Walker, DONTAE)1257 ($ Given - Provider: Karina Walker, RN) polyethylene glycol 3350 (MIRALAX) packet 17 [...] 09/10/17 at 0000, Until Tue09/19/17 at 1420 Or 0.9% NaCl injection 3 mL (CANCELED) 3 mL, Intracatheter, PRN, Other, for line flush, Starting on 09/10/17 at 0000, Until Tue09/09/17 at 1443 documented in this encounter Additional Health Concerns Infection Onset Date Last Indicated Resolved Time 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
--- OUTSIDE RECORDS SUMMARY | 2024-05-24 23:42 | XMS_ITS | Encounter Summary ---
Author Organization [facility] Address [address] [place] [address] Care Team Providers Care Sock Liner Name Role Phone Briana Medeiros MD Primary Care Provider [phone] Encounter Details Date Type Department Care Team (Late Contact Info) Description 07/29/2017 Anesthesia Historic Visit [facility] [address] [place] [phone] Social History Tobacco Use Types Packs/Day Years Used Date Smoking Tobacco: Never Assessed Sex and Gender Information Value Date Recorded Sex Assigned at Not on file Gender Identity Not on file Sexual Orientation Not on file documented as of this encounter Last Filed Vital Signs Vital Sign Reading Time Taken Comments Blood Pressure - - Pulse 68 07/29/2017 12:38 PM MEDICATION TECHNICIAN Temperature - - Respiratory Rate 17 07/29/2017 12:38 PM MEDICATION TECHNICIAN Oxygen Saturation - - Inhaled Oxygen Concentration - - Weight - - Height - - Body Mass Index - - documented in this encounter Plan of Treatment Upcoming Encounters Date Type Department Care Team ([facility] Contact Info) Description 07/09/2024 12:30 PM MEDICATION TECHNICIAN Office Visit [facility] [address] [facility], [place] [phone] Twin Miller MD [address] [place] [address] [place] [address] 09/19/2024 2:00 PM CDT Office Visit [facility] - Orthopedic Surgery [address] [place] [phone] Larry Alexandre MD [address] [facility] [address] [place] [address] documented as of this encounter Visit Diagnoses Not on filedocumented in this encounter Care Teams Sock Liner Relationship Specialty Start Date End Date Briana Medeiros MD [address] [place] [id number] PCP - General Family Medicine 09/04/17 09/18/17 documented as of this encounter
--- OUTSIDE RECORDS SUMMARY | 2024-05-24 23:42 | XMS_ITS | Encounter Summary ---
Author Organization [facility] Address [address] [facility] [place] [address] Care Team Providers Care Candle Molder Hand Name Role Phone Briana Medeiros MD Primary Care Provider [phone] Encounter Details Date Type Department Care Team (Late Contact Info) Description 08/04/[address] [facility] [address] [place] [phone] Social History Tobacco Use Types Packs/Day Years Used Date Smoking Tobacco: Never Assessed Sex and Gender Information Value Date Recorded Sex Assigned at Not on file Gender Identity Not on file Sexual Orientation Not on file documented as of this encounter Plan of Treatment Upcoming Encounters Date Type Department Care Team (Late Contact Info) Description 07/09/2024 12:30 PM ADMINISTRATOR PESTICIDE Office Visit [facility] [place] [address] [place] [address], [place] [phone] Twin Miller MD [address] [place] [address] [place] [address] 09/19/2024 2:00 PM CDT Office Visit [facility] - Orthopedic Surgery [facility] [facility] [place] [phone] Larry Alexander MD [address] [facility] [address] [place] [address] documented as of this encounter Visit Diagnoses Not on filedocumented in this encounter Care Teams Candle Molder Hand Relationship Specialty Start Date End Date Briana Medeiros MD [address] [place] [address] PCP - General Family Medicine 09/04/17 09/18/17 documented as of this encounter
--- OUTSIDE RECORDS SUMMARY | 2024-05-24 23:42 | XMS_ITS | Encounter Summary ---
Author Organization [facility] Address [address] [facility] [place] [address] Care Team Providers Care Invasive Cardiologist Name Role Phone Briana Medeiros MD Primary Care Provider Mau Bridges MD Primary Care Provider Encounter Details Date Type Department Care Team (Late Contact Info) Description 06/13/2017 Orders Only [facility] [address] [place] [address] Puneet Faustin MD [address] [facility] [address] [place] [address] Social History Tobacco Use Types Packs/Day Years Used Date Smoking Tobacco: Never Assessed Sex and Gender Information Value Date Recorded Sex Assigned at Not on file Gender Identity Not on file Sexual Orientation Not on file documented as of this encounter Plan of Treatment Upcoming Encounters Date Type Department Care Team (Late Contact Info) Description 07/09/2024 12:30 PM MECHANICAL INTEGRITY SPECIALIST [place] [facility] [place] [address] [place] [address], [place] [phone] Twin Miller MD [address] [place] [address] [address] [place] [address] 09/19/2024 2:00 PM CDT Office Visit [facility] - Orthopedic Surgery [address] [place] [address] Larry Alexander MD [address] 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
--- OUTSIDE RECORDS SUMMARY | 2024-05-24 23:42 | XMS_ITS | Encounter Summary ---
Author Organization [facility] Address [address] [place] [address] Care Team Providers Care Recreational Leader Name Role Phone Briana Medeiros MD Primary Care Provider [phone] Reason for Visit * Auth/Cert Specialty Diagnoses / Procedures Referred By Contac t Referred To Contact Diagnoses ACUTE HYPOXEMIC RESPIRATORY FAILURE Referral ID Status Reason Start Date Expiration Date Visits Re quested Visits Authorized [id number] 1 1 Encounter Details Date Type Department Care Team (Late st Contact Info) Description 09/13/2017 6:10 PM CDT - 09/13/2017 8:24 PM CDT Surgery [facility] [address] [place] [address] Moise Castaneda MD [address] [place] [address] TRACHEOSTOMY Surgery Details Date/Time Status Location OR Service Patient Class Case Class Case Type Trauma Case? 09/13/2017 6:10 PM Posted [facility] OR OR 01 ENT Inpatient Non-Urgen t Add On Panel 1 Procedure LRB Anes Op Region Wound Class Comments TRACHEOSTOMY N/A General Neck Clean Contaminate d Patient is vented Surgeon Surgeon Role Service Panel Moise aCstaneda MD Primary ENT 1 Leslye Wood MD Assisting ENT 1 documented in this encounter Social History [...] Sign Reading Time Taken Comments Blood Pressure 132/98 09/13/2017 8:00 PM CDT Pulse 88 09/13/2017 8:00 PM CDT Temperature 36.5 ??C (97.7 ??F) 09/13/2017 7:44 PM CD T Respiratory Rate 23 09/13/2017 8:00 PM CDT Oxygen Saturation 100% 09/13/2017 8:00 PM CDT Inhaled Oxygen Concentration 60% 09/13/2017 8 :14 PM CDT Weight 94.3 kg (207 lb 14.3 oz) 09/12/2017 5:43 AM CDT Height 177.8 cm (5' 10 [...] Discharge Summary Patient ID: José Miguel Keys [id number] 66 y.o. 1950 Admit date: 09/06/2017 Discharge date: 09/19/17 at 12:30pm Admitting Physician: Jason Nash MD Discharge Physician: Poncho Bowers MD Admission Diagnoses: Chronic respiratory failure with hypoxia [J96.11] Dysphasia [R47.02] Discharge Diagnoses: Acute hypoxic respiratory failure from mucus plugging Discharged Condition: stable Hospital Course: 09/06 admitted to ICU intubated and on low dose vasopressors. Bronch completed. Wash sent for micro. 4/4 PSV trial, CT chest to eval L [...] awake during the day and Volume AC(RR=15, Pr=403, PEEP=8) with sleep Oral care BID ?? [...] 1.0 Color Latest Ref Range: Colorless, Straw [place] (Abnormal) Clarity Latest Ref Range: Clear Slighty [...] was intubated Neurologic: nonfocal, generalized weakness Disposition: snf care facility Patient Instructions: Current Discharge Medication [...] 2 times daily with morning and evening neon sign installerIgor Gilliam * oxyCODONE (immediate release) 5 MG [...] MG capsule Commonly known as: SINEquan ergocalciferol 47523 UNITS capsule Commonly known as: DRISDOL ferrous [...] Commonly known as: KENALOG vitamin D (ergocalciferol) 48445 UNITS capsule Commonly known as: DRISDOL Activity: [...] Level of Care:LTAC Facility Name: [facility] and Counts include 234 beds at the [facility] dental financial coordinator [place] Made Aware of Special Needs (if applicable): Facility aware of trach/vent and Tube and tube feeding needs RN Call Report to: [phone] RN Fax D/C Orders to: [phone] Transportation (company and number): [facility] [phone] trip number [phone] Certificate of Medical Necessity rationale: Trach and Vent Date/time of transfer: 09/19/2017 1300 Accepting MD: Dr. Espino [phone] Completed and Signed BS728J (if applicable) N/A Family/Other Notified of Transfer (name/phone): Trinity at [phone] Authorization Skilled Care: N/A Authorization for Transportation: trip ticket [id number] Comments: Patient has been accepted at [facility]. Patient and family agreeable with discharge plan. Christina Mendieta RN * Christina Mendieta RN - 09/19/2017 11:10 AM CDT Patient to be discharged to [facility] At the [facility] Location. Medical team aware and given report number for report.([phone]) Nursing given number for report [phone]. [facility] set up for transport at [...] Labs Component Name 09/10/17 0557 PO2ART 80 ZQK5COB 44 BAD1PTL 30.0* ?? Radiology: ?? CXR this morning [...] placement - [facility] accepted at [facility] Associated attestation - Poncho Galarza MD - [...] 130/74 09/17/17 1700 - 83 16 110/75 04/14/18 1600 98.3 ??F (36.8 ??C) 85 16 [...] CBC: Recent Labs Component Name 09/17/17 0433 0441209/15/17440 WBC 8.1 8.5 8.6 HGB 8.7* 8.1* [...] displayed. Coagulation: Recent Labs Component Name 09/15/1744009/11/1743609/09/17 042 PT 15.1* 14.1 15.8* INR 1.2 1.1 1.3 Lab results smartLinks are not currently available Cardiac markers: Recent Labs Component Name 09/06/17 11508/26/17 1420 TROPONINI 0.027 <0.010 ABGs: Recent Labs Component Name 09/10/17 0557 PO2ART 80 ZRV5JTK 44 MBF7OBG 30.0* ?? Radiology: ?? CXR this morning [...] placement - [facility] has [facility] accepted at [facility] Associated attestation - Poncho Galarza MD - [...] 98/57 09/17/17 0000 - 90 17 115/65 09/16/172299 - 18 92/66 09/16/172199 - 14 116/78 09/16/172120 - - - 09/16/172117 - 16 - 09/16/172007 98.4 [...] 4.2 3.8 - 3.3* BUN - - 18 - 23 - 21 - - - [...] Gastroenterology Fellow Vira Wilson MD Gastroenterology Fellow [phone]) [phone] * Jaclyn Monsivais RCP - 09/16/2017 12:08 [...] Case management updated [facility] facility [facility] dental financial coordinator ley of potential discharge date. Will continue to keep facility updated. Christina Mendieta RN 09/16/2017 10:58 AM [phone] * Nicolas Fuentes OT - 09/16/2017 10:23 AM CDT [facility] Physical Medicine and Rehabilitation Occupational Therapy Progress Note Patient: José Miguel Keys Med Record Number: [id number] Date of : 1950 Age: 66 y.o. [...] edge of bed With minimal assist ?? Group Home Goal: Patient to discharge to appropriate next level of inpatient care. If patient is discharged from the facility, this note serves as a discharge note if further occupational therapy visits did not occur. Following therapy session, patient left in neuro/annelise chair, with call light within reach and with RN, Jose L aware. Nicolas Fuentes OT * Beata Shafer, PT - 09/16/2017 10:22 AM CDT [facility] Physical Medicine and Rehabilitation PhysicalTherapy Progress Note Co-tx with OT and RT Patient: José Miguel Keys Med Record Number: [id number] Date of : 1950 Age: 66 y.o. [...] on edge of bed With minimal assist Group Home Goal: Patient to discharge to appropriate [...] per nursing assess Estimated Energy Needs: KCAL: 2561-6253 ([facility] 2010-obese/vent (97.3kg)) Protein (g): 135-165 (1.8- 2.2g/kg [...] not displayed. Coagulation: Recent Labs Component Name 09/15/1744009/11/17 0437 09/09/17 0422 PT 15.1* 14.1 15.8* INR 1.2 1.1 1.3 Lab results smartLinks are not currently available Cardiac markers: Recent Labs Component Name 09/06/17 1157 08/26/17 1420 TROPONINI 0.027 <0.010 ABGs: Recent Labs Component Name 09/10/17 0557 PO2ART 80 ZZW9CGN 44 ICZ7XDP 30.0* ?? Radiology: ?? CXR this morning [...] placement - [facility] at [facility] Associated attestation - Yogesh Duncan MD - [...] - - BUN - - 18 - - - 24 - - - 11 [...] 7.45 7.51* 7.41 PO2ART 80 274* 65* HNR4BQZ 44 38 45 BEART 5.4* 5.7* 2.4* [...] Yogesh Duncan MD, MPH * Jaclyn Monsivais, [facility] - 09/15/2017 3:53 PM CDT Patient seen [...] Isaacs, OT - 09/15/2017 2:15 PM CDT [facility] Physical Medicine and Rehabilitation Occupational Therapy Progress Note Patient: José Miguel Keys Med Record Number: [id number] Date of : 1950 Age: 66 y.o. [...] stand With mod assist and X 2 Head Of History Goal:Patient to discharge to appropriate next level [...] Shafer, PT - 09/15/2017 2:10 PM CDT [facility] Physical Medicine and Rehabilitation PhysicalTherapy Progress Note Co-tx with OT and RT Patient: José Miguel Keys Med Record Number: [id number] Date of : 1950 Age: 66 y.o. [...] on edge of bed With minimal assist Head Of History Goal: Patient to discharge to appropriate next [...] TBILI 0.3 ALB 1.8* -Impression: Need for supervisor intermediates enteral feedings -Plan/ recommendations: - PEG today [...] displayed. Recent Labs Component Name 09/15/17 0441 09/14/17 0521 09/13/17 0517 09/07/17 0428 09/04/1744609/03/17 043 CALCIUM 8.8 8.7 9.0 - [...] Labs Component Name 09/10/17 0557 PO2ART 80 MOY8GKB 44 XQO8ATP 30.0* ?? Radiology: ?? CXR this morning [...] placement - patient has been accepted at [facility] * Bandar Davis MD - 09/15/2017 [...] Name 09/14/17 1246 09/14/17 0634 09/14/17 0509/13/17 0509/12/17 0514 09/06/17 1621 09/06/17 1211 07/29/17 1130 [...] Labs Component Name 09/10/17 0557 PO2ART 80 XUV4WVB 44 SIE3YWG 30.0* ?? Radiology: ?? CXR this morning [...] Isaacs OT - 09/14/2017 1:20 PM CDT [facility] Physical Medicine and Rehabilitation Occupational Therapy Progress Note Patient: José Miguel Keys Med Record Number: [id number] Date of : 1950 Age: 66 y.o. [...] stand With mod assist and X 2 Head Of History Goal:Patient to discharge to appropriate next level of inpatient care If patient is discharged from the facility, this note serves as a discharge note if further occupational therapy visits did not occur. Following therapy session, patient left in bed, with call light within reach, with family in room and with RNAlexia aware. Gabriela Isaacs OT * Beata Shafer, PT - 09/14/2017 1:20 PM CDT [facility] Physical Medicine and Rehabilitation PhysicalTherapy Progress Note Updated orders received s/p tracheostomy, no re-evaluation indicated - continue PT POC Co-tx with OT and RT Patient: José Miguel Keys Med Record Number: [id number] Date of : 1950 Age: 66 y.o. [...] on edge of bed With minimal assist Group Home Goal: Patient to discharge to appropriate next level of inpatient care. Update Treatment Plan: Continue per plan If patient is discharged from the facility, this note serves as a discharge note if further physical therapy visits did not occur. Following therapy session, patient left in bed in chair position, with call light within reach and with RNAlexia aware. Beata Shafer PT 09/14/2017 * Christina Mendieta RN - 09/14/2017 9:53 AM CDT Spoke with dental financial coordinator from [facility]. Patient has been accepted at facility and may go when patient is medically stable. Nursing staff aware. Christina Mendieta RN 09/14/2017 9:57 AM * Beata Shafer, PT - 09/14/2017 7:51 AM CDT [facility] Department of Physical Medicine & Rehabilitation Progress Note Patient: José Miguel Keys [facility] Record Number: [id number] Date of : 1950 Age: 66 y.o. 09/14/17 0751 Therapy on Hold Therapy on hold Surgery. Chart reviewed, patient to OR with general anesthesia. Patient now on holdfrom therapy services. Please re-consult when patient is appropriate for functional mobility and therapy interventions. Beata Shafer, PT 09/14/2017 7:52 AM * Gabriela Isaacs OT - 09/14/2017 7:51 AM CDT Occupational Therapy [facility] Department of Physical Medicine & Rehabilitation Progress Note Patient: José Miguel Keys [facility] Record Number: [id number] Date of : 1950 Age: 66 y.o. [...] Anesthesiology PGY-1 09/14/2017 7:05 AM * Glendy Murphy, DONTAE - 09/13/2017 3:33 PM CDT Problem: Oxygenation/Respiratory Function Goal: Resp rate/effort will be within specified limits Patient will continue to optimize breathing efforts while on the vent. * Christina Mendieta RN - 09/13/2017 10:25 AM CDT Case management notified for LTAC placement. 's preference is [facility]. Referral sent and call placed to project coordinator and will review the patients eligibility today. Patient to have trach and PEG placed today. Christina Mendieta RN 09/13/2017 10:27 AM [phone] * Kalyan Cook RCP - 09/13/2017 9:35 [...] - 09/13/2017 9:30 AM CDT Occupational Therapy [facility] Physical Medicine and Rehabilitation Occupational Therapy Progress Note Patient: José Miguel Keys Med Record Number: [id number] Date of : 1950 Age: 66 y.o. [...] 2 and Patient will perform AROM Independently Group Home Goal:Patient to discharge to appropriate next level of inpatient care If patient is discharged from the facility, this note serves as a discharge note if further occupational therapy visits did not occur. Following therapy session, patient left in bed, with call light within reach and with RNGlendy aware. Gabriela Isaacs OT * Beata Shafer PT - 09/13/2017 9:30 AM CDT [facility] Physical Medicine and Rehabilitation PhysicalTherapy Progress Note Co-tx with OT and RT Patient: José Miguel Keys Med Record Number: [id number] Date of : 1950 Age: 66 y.o. [...] on edge of bed With minimal assist Head Of History Goal: Patient to discharge to appropriate next [...] 93/61 Automatic 09/12/176 - 16 - - 09/12/172102 - - - 09/12/17 2100 - 85 16 97/70 Automatic 09/12/171999 97.7 ??F (36.5 ??C) 90 17 104/63 [...] 0514 09/11/17 0437 09/10/17 0504 09/07/17 0428 09/04/1744609/03/17 0431 CALCIUM [...] Labs Component Name 09/11/17 0437 09/09/17 0422 09/07/17427 PT 14.1 15.8* 18.8* INR 1.1 1.3 1.6 Lab results smartLinks are not currently available Cardiac markers: Recent Labs Component Name 09/06/17 1157 08/26/17 1420 TROPONINI 0.027 <0.010 ABGs: Recent Labs Component Name 09/10/17 0557 PO2ART 80 FIE7RMN 44 DAL3KST 30.0* ?? Radiology: ?? CXR this morning [...] 7.45 7.51* 7.41 PO2ART 80 274* 65* RTA5NPT 44 38 45 BEART 5.4* 5.7* 2.4* [...] Yogesh Duncan MD, MPH * Tessie Harris, INTERNET SPECIALIST - 09/12/2017 5:05 PM CDT SW following pt for discharge planning. Pt and family would prefer LTAC placement at [facility]. Family does not want pt to return to [place]. SW to submit LTAC referral to [facility] and continue following. Tessie Harris 09/12/2017 5:08 PM [phone] * Beata Shafer, PT - 09/12/2017 3:23 PM CDT [facility] Department of Physical Medicine & Rehabilitation Progress Note Patient: José Miguel Keys Med Record Number: [id number] Date of : 1950 Age: 66 y.o. Per discussion with MICU 3, cancel therapy this date 2/2 pt going for tracheostomy. Will continue to follow. Beata Shafer, PT 09/12/2017 3:23 PM * Gabriela Isaacs, OT - 09/12/2017 3:11 PM CDT Occupational Therapy [facility] Department of Physical Medicine & Rehabilitation Progress Note Patient: José Miguel Keys Med Record Number: [id number] Date of : 1950 Age: 66 y.o. Per discussion with MD (MICU 3), cancel therapy this date due to procedure plans today (tracheostomy). Will follow up tomorrow, 09/13. Gabriela Isaacs OT 09/12/2017 3:12 PM * Ирина Barrientos RD/SALVADOR - 09/12/2017 1:57 PM CDT Initial Nutrition [...] Pain affecting intake: No Estimated Needs: KCAL: 2292-9447 ([facility] 2010-obese/vent (97.3kg)) Protein (g): 135-165 (1.8-2.2g/kg [...] 09/12/17 0945 - - 15 - - 09/12/17899 - 85 11 107/65 - Input/Output Intake/Output [...] 0514 09/11/17 0437 09/10/17 0504 09/07/17 0428 09/04/1744609/03/17 043 CALCIUM 8.6 8.9 8.6 - 8.4 - [...] Labs Component Name 09/10/17 0557 PO2ART 80 XCS4JFW 44 PLN2HQX 30.0* ?? Radiology: ?? CXR this morning [...] 7.45 7.51* 7.41 PO2ART 80 274* 65* BYU7NOB 44 38 45 BEART 5.4* 5.7* 2.4* [...] Pulse: 89 90 87 86 Resp: 20 13 12 Temp: 98.5 ??F (36.9 ??C) [...] Labs Component Name 09/10/17 0557 PO2ART 80 TKF9VHG 44 LPN3SSW 30.0* ?? Radiology: ?? CXR this morning [...] of Pulmonary, Critical Care, & Sleep Medicine [facility] Pager: [phone] * Hoa Taylor RN - 09/10/2017 11:51 [...] Labs Component Name 09/10/17 0557 PO2ART 80 OMI8HHD 44 PWX0ESZ 30.0* ?? Radiology: ?? CXR this morning [...] of Pulmonary, Critical Care, & Sleep Medicine [facility] Pager: [phone] Associated attestation - Jason Nash MD - [...] Author: CHRIS Ibanez Service: (none) Author Type: Marking Devices Assembler Date of Service: 09/09/2017 4:59 PM Filed: 09/09/2017 5:01 PM Note Type: Progress Notes Status: Signed Parts And Service Manager: CHRIS Ibanez (Marking Devices Assembler) LAURA following pt for discharge planning. LAURA met with pt's , Trinity Keys [phone], to offer support. SW familiar with pt [...] PM Note Type: Progress Notes Status: Signed Parts And Service Manager: RT Elda (Respiratory Therapist) 09/09/17 1642 RT/ Bronch Procedure $ Bedside Bronch Flexible Bronchoscopy Procedures Flex[facility] Pre-Procedure Diagnosis Pre Procedure LOC: Sedated Procedure details Procedure start time: 1425 Scope in time: 1426 ETT Size: 8 Post Procedure Dx Scope Number: disposable Scope out time: 1450 Procedure ends: 1450 Report given to: RN Assisted with bedside bronchoscopy. [place] protocol checklist completed prior to procedure with [...] PM Note Type: Progress Notes Status: Signed Parts And Service Manager: RT Martha (Respiratory Therapist) Respiratory therapist assisted with PO/OT.Manage ventilator. * Provider, MD Claire - 09/09/2017 1:36 PM CDT Progress Notes Signed by MARTHA Enciso on 09/09/2017 3:00 PM Author: MARTHA Enciso Service: (none) Author Type: Occupational Therapist Date of Service: 09/09/2017 1:36 PM Filed: 09/09/2017 3:00 PM Note Type: Progress Notes Status: Signed Parts And Service Manager: MARTHA Enciso (Occupational Therapist) Occupational Therapy [facility] Physical Medicine and Rehabilitation Occupational Therapy Initial Evaluation Note Patient: José Miguel Keys [facility] Record Number: [id number] Date of : 1950 Age: 66 y.o. [...] Atrial fibrillation ??? CAD (coronary artery disease) [place] 1981, last angiogram 2010 ??? Chronic atrial [...] came from [place]) Prior Function: Level of [place]: Needs assistance with ADLs;Needs assistance with homemaking;Needs [...] treatment : 20 minutes;with fair + endurance Head Of History Goal: Group Home Goal: Patient to discharge to appropriate [...] PM Note Type: Progress Notes Status: Signed Parts And Service Manager: Beata Shafer PT (Physical Therapist) Physical Therapy [facility] Physical Medicine and Rehabilitation Physical Therapy Initial Evaluation Note Co-tx with OT and RT Patient: José Miguel Keys Med Record Number: [id number] Date of : 1950 Age: 66 y.o. [...] Atrial fibrillation ??? CAD (coronary artery disease) [place] 1981, last angiogram 2010 ??? Chronic atrial [...] of Home: Facility Prior Function: Level of [place]: Needs assistance with functional transfers Receives Help [...] Sit Edge of Bed: With minimal assist Head Of History Goal(s): Group Home Goal: Patient to discharge to appropriate [...] AM Note Type: Progress Notes Status: Signed Parts And Service Manager: Beata Shafer PT (Physical Therapist) Physical Therapy [facility] Department of Physical Medicine & Rehabilitation Progress [...] PM Note Type: Progress Notes Status: Attested Parts And Service Manager: Vita Troncoso MD (Resident) Cosigner: Jason Nash [...] 09/06/2017 ABG: Lab Results Component Value Date TWA6VAR 45 09/09/2017 PO2ART 65 (L) 09/09/2017 CGI9WSL 27.4 (H) 09/09/2017 Radiology: CXR this morning [...] MD 09/09/2017 7:39 AM * Delphine Waddell, DATA QUALITY CONSULTANT-RICE DRIER - 09/09/2017 4:16 AM CDT Progress Notes Signed by Delphine Waddell NP on 09/09/2017 4:23 AM Author: Delphine Waddell NP Service: Medical ICU Author Type: Nurse Practitioner Date of Service: 09/09/2017 4:16 AM Filed: 09/09/2017 4:23 AM Note Type: Progress Notes Status: Signed Parts And Service Manager: Delphine Waddell NP (Nurse Practitioner) Called by [...] Delphine Waddell NP Critical Care, MICU3 Ext [id number] * ProviderClaire MD - 09/08/2017 8:05 AM CDT Progress Notes Signed by MARTHA Newton on 09/08/2017 8:06 AM Author: MARTHA Newton Service: Physical Medicine and Rehabilitation Author Type: Occupational Therapist Date of Service: 09/08/2017 8:05 AM Filed: 09/08/2017 8:06 AM Note Type: Progress Notes Status: Signed Parts And Service Manager: MARTHA Newton (Occupational Therapist) Occupational Therapy [facility] Department of Physical Medicine & Rehabilitation Progress Note Patient Name José Miguel Keys Date of 1950 Age 66 y.o. 09/08/17 0800 Missed Visit Missed Visit Physician Cancel Called MD to inquire about activity order and MD states the patient is likely plugging again and has become hypoxic with questionable re-intubation or trach. Per MD (MICU 3), cancel therapy this date. Gabriela Isaacs OTR/L 09/08/2017 8:06 AM * Vita Troncoso MD - 09/08/2017 7:21 AM CDT Progress Notes Signed by Vita Troncoso MD on 09/08/2017 1:57 PM Author: Vita Troncoso MD Service: Medical ICU Author Type: Resident Date of Service: 09/08/2017 7:21 AM Filed: 09/08/2017 1:57 PM Note Type: Progress Notes Status: Attested Parts And Service Manager: Vita Troncoso MD (Resident) Cosigner: Jason Nash [...] ??C), Max:98.2 ??F (36.8 ??C) Input/Output 09/06 190 - 09/08 0700 In: 1950 [I.V.:10] Out: [...] AST 21 Coagulation: Recent Labs 09/07/17 0428 04/03/18 1157 PT 18.8 H 24.5 H INR 1.6 2.2 Cardiac: Lab Results Component Value Date CKTOTAL 19 (L) 08/26/2017 TROPONINI 0.027 09/06/2017 ABG: Lab Results Component Value Date OHK3GNS 47 (H) 09/06/2017 PO2ART 169 (H) 09/06/2017 CLW3BMG 27.0 (H) 09/06/2017 Radiology: CXR this morning [...] Vita Troncoso MD 09/08/2017 1:56 PM * ProviderClaire MD - 09/08/2017 5:45 AM CDT Progress Notes Signed by Kim Joshua RN on 09/08/2017 5:48 AM Author: Kim Joshua RN Service: (none) Author Type: Registered Nurse Date of Service: 09/08/2017 5:45 AM Filed: 09/08/2017 5:48 AM Note Type: Progress Notes Status: Signed Parts And Service Manager: Kim Joshua RN (Registered Nurse) [id number] Patient states he is SOB and feels [...] PM Note Type: Progress Notes Status: Attested Parts And Service Manager: Vita Troncoso MD (Resident) Related Notes: Original [...] 09/06/2017 ABG: Lab Results Component Value Date WWU6GDM 47 (H) 09/06/2017 PO2ART 169 (H) 09/06/2017 WRL8ZMD 27.0 (H) 09/06/2017 Radiology: CXR this morning [...] Ирина Barrientos RD Service: (none) Author Type: Vapor Coater Date of Service: 09/07/2017 7:27 AM Filed: 09/07/2017 8:29 AM Note Type: Progress Notes Status: Signed Parts And Service Manager: Ирина Barrientos RD (Vapor Coater) Medical Nutrition Therapy Evaluation Nutrition Recommendations: Alter/change [...] 3.6 oz (113.5 kg) Estimated Needs: Calories: 7723-1781 kcals ([facility] 2010) vent/obese Protein: 135-165 g (1.8-2.2g/kg) [...] AM Note Type: Progress Notes Status: Signed Parts And Service Manager: Jay Lemon RN (Registered Nurse) At 0500, UOP has only been 35 for 2 hours. Rebecca Melendez NP notified. No increase in uop since 500 cc bolus administered. * Claire Marcum MD - 09/07/2017 5:25 AM CDT Progress Notes Signed by Chirag Schmitt RT on 09/07/2017 5:26 AM Author: RT Niurka Service: (none) Author Type: Respiratory Therapist Date of Service: 09/07/2017 5:25 AM Filed: 09/07/2017 5:26 AM Note Type: Progress Notes Status: Signed Parts And Service Manager: RT Niurka (Respiratory Therapist) Patient is excluded [...] AM Note Type: Progress Notes Status: Signed Parts And Service Manager: Jay Lemon RN (Registered Nurse) Notified BELLA [...] PM Note Type: Progress Notes Status: Signed Parts And Service Manager: Jason Nash MD (Physician) ICU progress Note: [...] PM Note Type: Progress Notes Status: Signed Parts And Service Manager: RT Song (Respiratory Therapist) 09/06/17 1500 RT/ [...] given to: RN Assisted with bedside bronchoscopy. [place] protocol checklist completed prior to procedure with [...] Author: CHRIS Littlejohn Service: (none) Author Type: Marking Devices Assembler Date of Service: 09/06/2017 12:03 PM Filed: 09/06/2017 12:06 PM Note Type: Progress Notes Status: Signed Parts And Service Manager: CHRIS Littlejohn (Marking Devices Assembler) READMISSION NOTE: ?? Pt readmitted to [facility] within 30 days. Pt transferred from [facility] to [facility]. Below assessment was completed with pt [...] was completed with pt's , Francia Keys [phone], at bedside. ? Admitting Diagnosis: Sepsis ? Pt readmitted with in 30 days: No ?Primary Care Doctor: Dr. Mau Medeiros [phone], last saw this physician three months ago. ? Prior Ability to perform ADL???s: Independent ? Anticipated Changes in performance of ADLS: PT/OT recommending SNF placement. Pt and are agreeable to recommendations and would like referrals submitted to [facility] [place]. SW to submit referrals. ? Communication of Needs:??Japanese, self, A&Ox4? Medication Management: Uses [facility] in [place] ([phone]) ? Current Living Situation: Pt lives with his in their multi level home. There are 14 steps witha railing on one side to enter the home. ? Current Support System:??Francia Keys () [phone] ? Power of Pharmacovigilance Scientist or Guardian: No ? Financial: Retired, insured through Medicare and [employer] ? Transportation: Will have a ride home [...] Other Healthcare Applications Active with Medicare and [employer] Substance Abuse Assessment and Treatment plan N/A Social Work referral for skilled placement needs Referrals submitted to [facility] [place] Other: Pt is a ? Case Management [...] Best??address and??telephone # for Patient: ? [address] [place] [address] ? Insurance and demographics verified with patient. [...] bolus 2 g Intravenous Once Delphine Waddell APRN-RICE D[facility]ER ??? ceFAZolin (ANCEF) syringe 2,000 mg 2 [...] mg Enteral Tube BID Delphine Waddell APRN- [facility] 8.6 mg at 09/14/17 2044 ??? polyethylene glycol 3350 (MIRALAX) packet 17 g 17 g Enteral Tube QDAY PRN Delphine Waddell APRN-[facility] 17 g at 09/11/17 0842 ??? docusate sodium (COLACE) solution 100 mg 100 mg Enteral Tube QDAY Delphine Waddell DATA QUALITY CONSULTANT-[facility] 100mg at 09/14/17 0841 ??? lidocaine (LIDODERM) 5 % patch 1 patch 1 patch Transdermal QDAY Delphine Waddell APRN-[facility] 1 patch at 09/14/17 0840 ??? albuterol [...] Pain assessment: None Sedation Assessment & Plan: [place] Society of Anesthesiologists Classification (PRE-PROCEDURE): ASA 3 [...] 5:06 PM Note Type: H&P Status: Attested Parts And Service Manager: Vita Troncoso MD (Resident) Cosigner: Jason Nash [...] osteomyelitis of L1/L2 and DVT Transferred from [facility] facility for hypoxia. Patient with recent [...] Atrial fibrillation ??? CAD (coronary artery disease) [place] 1981, last angiogram 2010 ??? Chronic atrial [...] area twice daily as needed ??? ergocalciferol 72884 UNITS Cap Take 50,000 Units by mouth [...] DAY NEEDED 0 ??? Vitamin D, Ergocalciferol, 53986 UNITS Cap Take 1 capsule by mouth [...] Recent Labs 09/06/17 1211 PO2ART 152 H IOM3WPD 55 H YAL4QYE 25.0 Urine Studies: Lab Results Component Value [...] 2:54 PM Note Type: Procedures Status: Attested Parts And Service Manager: Veronica Costello MD (Resident) Related Notes: Original [...] 4:14 AM Note Type: Procedures Status: Signed Parts And Service Manager: Ivonne Rubin MD (Resident) Cosigner: Jason Nash [...] 5:08 PM Note Type: Procedures Status: Attested Parts And Service Manager: Veronica Costello MD (Resident) Cosigner: Jason Nash MD at 09/08/2017 9:56 PM Procedures: 1. CHEST TUBE INSERTION [[id number] (Custom)] Attestation signed by Jason Nash MD [...] over the guidewire and removed. A 14 Faroese tube was placed in the left lateral [...] of Pulmonary, Critical Care, & Sleep Medicine [facility] Pager: [phone] * Veronica Costello MD - 09/06/2017 2:10 PM CDT Procedures Signed by Veronica Costello MD on 09/06/2017 5:11 PM Author: Veronica Costello MD Service: Pulmonary Critical Care Author Type: Resident Date of Service: 09/06/2017 2:10 PM Filed: 09/06/2017 5:11 PM Note Type: Procedures Status: Attested Parts And Service Manager: Veronica Costello MD (Resident) Related Notes: Original [...] 1:23 PM CDT GASTROENTEROLOGY CONSULT José Miguel Kyes Age: 66 y.o. Date of : 1950 Date of Admission: 09/06/2017 Reason for Consult: Concern for feeding difficulties History of Present Illness: José Miguel Keys is a 66 y.o. male with a PMH significant for COPD, [place], CAD s/p PCI, Afib with RVR, DVT, (on xarelto), discitis with OM of L1/L2 who has been staying at [facility] completing IV antibx for prior bacteremia [...] by mouth DAILY. Disp: Rfl: ergocalciferol (DRISDOL) 16479 UNITS capsule Take 50,000 Units by mouth [...] Disp: Rfl: 0 vitamin D, ergocalciferol, (DRISDOL) 47566 UNITS capsule Take 1 capsule by mouth [...] concerns. Vira Wilson MD Gastroenterology Fellow Pager: [phone] Associated attestation - Elizabeth Lee MD - 09/14/2017 8:07 PM CDT [facility] GI Attending José Miguel Keys is a 66 y.o. male who was seen and examined with the GI fellow 09/14/2017. I agree with their note attached. In addition, I note patient with complex recent medical illness, including hypoxic respiratory failure. Status post trach and in need of supervisor intermediates nutrition for rehab as he is unable [...] Feeding difficulties in adult with need for snf nutrition. 2. Daily ASA 3. On ceftaroline [...] 4:42 PM Note Type: Consults Status: Attested Parts And Service Manager: Vibha Benites MD (Resident) Cosigner: Elisabet Jones [...] Atrial fibrillation ??? CAD (coronary artery disease) [place] 1981, last angiogram 2010 ??? Chronic atrial [...] % injection 25 mL 25 mL Intravenous PRN Vita Troncoso MD ??? dextrose 50 % injection 50 mL 50 mL Intravenous TASHIAN Vita Troncoso MD ??? glucagon (rDNA) (GLUCAGEN) injection 1 mg 1 mg Intramuscular PRN Vita Troncoso MD ??? insulin regular (HUMULIN,NOVOLIN) injection 0-6 Units 0-6 Units Subcutaneous Q6HR Vita Troncoso MD 1 Units at 09/07/17 0535 ??? amiodarone (PACERONE) tablet 200 mg 200 mg Feeding Tube BID Rebecca Melendez COLLATOR 200 mg at 09/07/17 0840 Allergies: Allergies [...] History Encounter [place] war Review of Systems [facility] 07/08 resp status Physical Examination: Patient Vitals [...] 6:43 PM CDT José Miguel Keys 1950 [id number] Date of Procedure: 09/13/2017 Pre-Op Diagnosis: Ventilator dependency; Prolonged endotracheal intubation Post-Op Diagnosis: Same Procedure: Tracheostomy w/ skin fenestration, CPT code 87654 Surgeon: Duke Castaneda MD Resident: Leslye Wood [...] tested for defects and nonewere found. The primary school teacher withdrew the endotracheal tube under direct visualization [...] Note Type: ED Provider Notes Status: Signed Parts And Service Manager: Bandar Mansfield MD (Physician) [facility] eMERGENCY dEPARTMENT eNCOUnter ATTENDING PHYSICIAN NOTE HISTORICAL INFORMATION Primary Care Doctor: Mau Medeiros Patient information was obtained primarily from the patient, nursing notes, records History/Exam limitations: clinical condition. Time of evaluation: 11:21AM CHIEF COMPLAINT Shortness of Breath HPI José Miguel Keys is a 66 y.o. male with a past medical history of DM, asthma, A- fib, HTN, COPD, and AR who arrived to the ED via EMS at 11:21AM for severe repiratory distress. Patient was placed on CPAP per EMS en route, satting at 75%. HPI limited and obtained per EMS 2/2 acuity of medical condition. PAST MEDICAL HISTORY Past Medical History: Diagnosis Date ??? PAYTON (acute kidney injury) ??? Asthma ??? Atrial fibrillation ??? CAD (coronary artery disease) AR 1981, last angiogram 2010 ??? Chronic atrial [...] the esophagus and tips are off the [id number]. There is a moderate left pleural effusion, intervally decreased. There is a small right pleural effusion, unchanged. There are bilateral interstitial and airspace opacities likely representing pulmonary edema or pneumonia. No pneumothorax is identified. The cardiac silhouette is partly obscured. Report dictated by Rohan Hopkins M.D. (residential therapist). I, Dr. SILAS NGUYỄN MD have personally [...] in the appropriate position and an 18 Faroese nasogastric tube waslubricated with water soluble lubricant [...] st Contact Info) Description 07/09/2024 12:30 PM SURGICAL SUPERVISOR Office Visit [facility] - GI [address] [facility], [place] [address] Twin Miller MD [address] [place] [address] [place] [address] 09/19/2024 2:00 PM CDT Office Visit [facility] - Orthopedic Surgery [address] [place] [id number] Larry Alexander MD [address] [facility] [address] [place] [address] Pending Results Name Type Priority Associated Diagnoses Date /Time PT-INR Lab Routine 09/10/2017 5:0 4 AM CDT Scheduled Orders Name Type Priority Associated Diagnoses Orde r Schedule PT-INR Lab Routine EVERY DAY for 1 Occurrences starting 09/10/2017 until 09/10/2017 documented as of this encounter Procedures Procedure Name Priority Date/Time Associated Diagnosis Comments CARDIAC EKG ORDER 03/23/2018 11: 38 AM CDT CARDIAC PROCEDURE ORDER 11/22/2017 4:17 PM CDT CARDIAC EKG ORDER 10/26/2017 11: 18 AM CDT CARDIAC EKG ORDER 10/19/2017 2:3 4 PM CDT CARDIAC EKG ORDER 09/29/2017 8:3 0 AM CDT GLUCOSE - POINT OF CARE Routine 09/19/2017 2:45 AM CDT RBC MORPHOLOGY AM Draw 09/19/2017 2:43 AM CDT CBC W AUTO DIFFERENTIAL AM Draw 09/19/2017 2:43 AM CDT BASIC METABOLIC PANEL (CALCIUM TOTAL) AM Draw 09/19/2017 2:43 AM CDT PHOSPHORUS BLOOD Routine 09/19/2017 2:43 AM CDT MAGNESIUM BLOOD AM Draw 09/19/2017 2:43 AM CDT GLUCOSE - POINT OF CARE Routine 09/18/2017 4:50 PM CDT XR CHEST 1VW PORTABLE Routine 09/18/2017 2:45 PM CDT Acute respiratory failure with hypoxia (HCC) GLUCOSE - POINT OF CARE Routine 09/18/2017 1:00 PM CDT MAGNESIUM BLOOD Routine 09/18/2017 11:04 AM CDT CBC W AUTO DIFFERENTIAL AM Draw 09/18/2017 12:03 AM CDT BASIC METABOLIC PANEL (CALCIUM TOTAL) AM Draw 09/18/2017 12:03 AM CDT PHOSPHORUS BLOOD Routine 09/18/2017 12:0 3 AM CDT MAGNESIUM BLOOD AM Draw 09/18/2017 12:03 AM CDT GLUCOSE - POINT OF CARE Routine 09/17/2017 7:18 PM CDT GLUCOSE - POINT OF CARE Routine 09/17/2017 12:04 PM CDT RBC MORPHOLOGY Routine 09/17/2017 4:33 AM CDT CBC W AUTO DIFFERENTIAL AM Draw 09/17/2017 4:33 AM CDT BASIC METABOLIC PANEL (CALCIUM TOTAL) AM Draw 09/17/2017 4:33 AM CDT PHOSPHORUS BLOOD Routine 09/17/2017 4:33 AM CDT MAGNESIUM BLOOD AM Draw 09/17/2017 4:33 AM CDT GLUCOSE - POINT OF CARE Routine 09/16/2017 11:18 PM CDT GLUCOSE - POINT OF CARE Routine 09/16/2017 6:41 PM CDT GLUCOSE - POINT OF CARE Routine 09/16/2017 12:22 PM CDT GLUCOSE - POINT OF CARE Routine 09/16/2017 5:56 AM CDT RBC MORPHOLOGY Routine 09/16/2017 4:13 AM CDT CBC W AUTO DIFFERENTIAL AM Draw 09/16/2017 4:13 AM CDT BASIC METABOLIC PANEL (CALCIUM TOTAL) AM Draw 09/16/2017 4:13 AM CDT PHOSPHORUS BLOOD Routine 09/16/2017 4:13 AM CDT MAGNESIUM BLOOD AM Draw 09/16/2017 4:13 AM CDT GLUCOSE - POINT OF CARE Routine 09/16/2017 12:23 AM CDT GLUCOSE - POINT OF CARE Routine 09/15/2017 6:01 PM CDT GLUCOSE - POINT OF CARE Routine 09/15/2017 11:56 AM CDT EGD Routine 09/15/2017 8:58 AM CDT GLUCOSE - POINT OF CARE Routine 09/15/2017 8:05 AM CDT XR CHEST 1VW PORTABLE Routine 09/15/2017 5:22 AM CDT Hypoxemia PT-INR [facility] AM Draw 09/15/2017 4:41 AM CDT TYPE + SCREEN PANEL Routine 09/15/2017 4 :41 AM CDT DIFFERENTIAL MANUAL Routine 09/15/2017 4 :41 AM CDT CBC W AUTO DIFFERENTIAL AM Draw 09/15/2017 4:41 AM CDT BASIC METABOLIC PANEL (CALCIUM TOTAL) AM Draw 09/15/2017 4:41 AM CDT B-TYPE NATRIURETIC PEPTIDE AM Draw 09/15/2017 4:41 AM CDT MAGNESIUM BLOOD AM Draw 09/15/2017 4:41 AM CDT GLUCOSE - POINT OF CARE Routine 09/15/2017 2:23 AM CDT GLUCOSE - POINT OF CARE Routine 09/14/2017 7:45 PM CDT GLUCOSE - POINT OF CARE Routine 09/14/2017 6:27 PM CDT GLUCOSE - POINT OF CARE Routine 09/14/2017 12:46 PM CDT GLUCOSE - POINT OF CARE Routine 09/14/2017 6:34 AM CDT XR CHEST 1VW PORTABLE Routine 09/14/2017 6:19 AM CDT Hypoxemia Pleural effusion, not elsewhere classified Extradural and subdural abscess, unspecified (HCC) DIFFERENTIAL MANUAL Routine 09/14/2017 5 :21 AM CDT CBC W AUTO DIFFERENTIAL AM Draw 09/14/2017 5:21 AM CDT BASIC METABOLIC PANEL (CALCIUM TOTAL) AM Draw 09/14/2017 5:21 AM CDT MAGNESIUM BLOOD AM Draw 09/14/2017 5:21 AM CDT GLUCOSE - POINT OF CARE Routine 09/14/2017 12:20 AM CDT XR ABDOMEN KUB STAT 09/13/2017 7:16 PM CDT Uses feeding tube GLUCOSE - POINT OF CARE Routine 09/13/2017 6:45 PM CDT TRACHEOTOMY/TRACHEOSTO MY 09/13/2017 5:28 PM CDT Chronic respiratory failure with hypoxia (HCC) GLUCOSE - POINT OF CARE Routine 09/13/2017 11:14 AM CDT GLUCOSE - POINT OF CARE Routine 09/13/2017 7:02 AM CDT XR CHEST 1VW PORTABLE Routine 09/13/2017 5:20 AM CDT Hypoxemia Pleural effusion, not elsewhere classified RBC MORPHOLOGY AM Draw 09/13/2017 5:17 AM CDT CBC W AUTO DIFFERENTIAL AM Draw 09/13/2017 5:17 AM CDT BASIC METABOLIC PANEL (CALCIUM TOTAL) AM Draw 09/13/2017 5:17 AM CDT MAGNESIUM BLOOD AM Draw 09/13/2017 5:17 AM CDT GLUCOSE - POINT OF CARE Routine 09/12/2017 11:49 PM CDT GLUCOSE - POINT OF CARE Routine 09/12/2017 6:32 PM CDT GLUCOSE - POINT OF CARE Routine 09/12/2017 1:33 PM CDT DIFFERENTIAL MANUAL Routine 09/12/2017 5 :14 AM CDT CBC W AUTO DIFFERENTIAL AM Draw 09/12/2017 5:14 AM CDT BASIC METABOLIC PANEL (CALCIUM TOTAL) AM Draw 09/12/2017 5:14 AM CDT MAGNESIUM BLOOD AM Draw 09/12/2017 5:14 AM CDT GLUCOSE - POINT OF CARE Routine 09/12/2017 5:12 AM CDT GLUCOSE - POINT OF CARE Routine 09/12/2017 1:14 AM CDT GLUCOSE - POINT OF CARE Routine 09/11/2017 5:28 PM CDT GLUCOSE - POINT OF CARE Routine 09/11/2017 11:49 AM CDT TYPE + SCREEN PANEL Routine 09/11/2017 6 :50 AM CDT XR CHEST 1VW Routine 09/11/2017 6:33 AM CDT Hypoxemia Pleural effusion, not elsewhere classified Severe sepsis without septic shock (CODE) (HCC) GLUCOSE - POINT OF CARE Routine 09/11/2017 5:54 AM CDT PT-INR [facility] AM Draw 09/11/2017 4:37 AM CDT RBC MORPHOLOGY AM Draw 09/11/2017 4:37 AM CDT CBC W AUTO DIFFERENTIAL AM Draw 09/11/2017 4:37 AM CDT BASIC METABOLIC PANEL (CALCIUM TOTAL) AM Draw 09/11/2017 4:37 AM CDT B-TYPE NATRIURETIC PEPTIDE AM Draw 09/11/2017 4:37 AM CDT MAGNESIUM BLOOD AM Draw 09/11/2017 4:37 AM CDT GLUCOSE - POINT OF CARE Routine 09/11/2017 12:01 AM CDT GLUCOSE - POINT OF CARE Routine 09/10/2017 6:16 PM CDT GLUCOSE - POINT OF CARE Routine 09/10/2017 12:57 PM CDT BLOOD GASES ARTERIAL STAT 09/10/2017 5:57 AM CDT GLUCOSE - POINT OF CARE Routine 09/10/2017 5:50 AM CDT PTT [facility] STAT 09/10/2017 5:49 AM CDT RBC MORPHOLOGY Routine 09/10/2017 5:04 AM CDT CBC W AUTO DIFFERENTIAL Routine 09/10/2017 5:04 AM CDT BASIC METABOLIC PANEL (CALCIUM TOTAL) Routine 09/10/2017 5:04 AM CDT GLUCOSE ACCUCHECK Routine 09/09/2017 11: 31 PM CDT GLUCOSE ACCUCHECK Routine 09/09/2017 5:1 0 PM CDT CULTURE AEROBIC Routine 09/09/2017 3:41 PM CDT XR CHEST 1VW PORTABLE STAT 09/09/2017 3:31 PM CDT OT EVAL AND TREAT Routine 09/09/2017 2:0 8 PM CDT PT EVAL AND TREAT Routine 09/09/2017 2:0 8 PM CDT GLUCOSE ACCUCHECK Routine 09/09/2017 11: 57 AM CDT BASIC METABOLIC PANEL (CALCIUM TOTAL) STAT 09/09/2017 10:31 AM CDT BLOOD GASES ARTERIAL STAT 09/09/2017 8:41 AM CDT GLUCOSE ACCUCHECK Routine 09/09/2017 6:1 5 AM CDT XR CHEST 1VW PORTABLE STAT 09/09/2017 4:23 AM CDT PT-INR [facility] Routine 09/09/2017 4:22 AM CDT DIFFERENTIAL MANUAL Routine 09/09/2017 4 :22 AM CDT CBC W AUTO DIFFERENTIAL Routine 09/09/2017 4:22 AM CDT BASIC METABOLIC PANEL (CALCIUM TOTAL) Routine 09/09/2017 4:22 AM CDT BLOOD GASES ARTERIAL Routine 09/09/2017 4:22 AM CDT CBC W AUTO DIFFERENTIAL Routine 09/09/2017 4:22 AM CDT XR CHEST 1VW PORTABLE STAT 09/09/2017 3:48 AM CDT GLUCOSE ACCUCHECK Routine 09/09/2017 12: 56 AM CDT GLUCOSE ACCUCHECK Routine 09/08/2017 6:0 8 PM CDT GLUCOSE ACCUCHECK Routine 09/08/2017 12: 39 PM CDT LDH BODY FLUID STAT 09/08/2017 12:35 PM CDT GLUCOSE BODY FLUID STAT 09/08/2017 12 :35 PM CDT PROTEIN FLUID STAT 09/08/2017 12:35 PM CDT DIFFERENTIAL MANUAL FLUID STAT 09/08/2017 12:35 PM CDT CELL COUNT FLUID STAT 09/08/2017 12:3 5 PM CDT CELL COUNT W DIFFERENTIAL FLUID STAT 09/08/2017 12:35 PM CDT PH FLUID STAT 09/08/2017 12:33 PM CDT CULTURE AEROBIC STAT 09/08/2017 12:32 PM CDT XR CHEST 1VW PORTABLE Routine 09/08/2017 12:23 PM CDT XR CHEST 1VW PORTABLE STAT 09/08/2017 5:52 AM CDT GLUCOSE ACCUCHECK Routine 09/08/2017 5:3 7 AM CDT GLUCOSE ACCUCHECK Routine 09/08/2017 12: 27 AM CDT GLUCOSE ACCUCHECK Routine 09/07/2017 4:[address] CHEST WO CONTRAST MYRNA 09/07/2017 1:52 PM CDT GLUCOSE ACCUCHECK Routine 09/07/2017 11: 43 AM CDT GLUCOSE ACCUCHECK Routine 09/07/2017 5:2 9 AM CDT XR CHEST 1VW PORTABLE Routine 09/07/2017 5:04 AM CDT PTT [facility] Timed 09/07/2017 4:28 AM CDT PT-INR [facility] Timed 09/07/2017 4:28 AM CDT PROCALCITONIN LEVEL Timed 09/07/2017 4 :28 AM CDT BASIC METABOLIC PANEL (CALCIUM TOTAL) Timed 09/07/2017 4:28 AM CDT PHOSPHORUS BLOOD Timed 09/07/2017 4:28 AM CDT MAGNESIUM BLOOD Timed 09/07/2017 4:28 AM CDT CBC W AUTO DIFFERENTIAL Timed 09/07/2017 4:28 AM CDT CBC W AUTO DIFFERENTIAL Timed 09/07/2017 4:28 AM CDT GLUCOSE ACCUCHECK Routine 09/07/2017 12: 08 AM CDT EKG 12-LEAD Routine 09/07/2017 12:00 AM CDT XR ABDOMEN KUB PORTABLE STAT 09/06/2017 11:06 PM CDT BLOOD GASES ART COMPLETE [facility] OR STAT 09/06/2017 4:21 PM CDT GLUCOSE ACCUCHECK Routine 09/06/2017 4:1 9 PM CDT XR CHEST 1VW PORTABLE STAT 09/06/2017 2:48 PM CDT CULTURE AEROBIC Routine 09/06/2017 2:05 PM CDT CULTURE LEGIONELLA Routine 09/06/2017 2: 05 PM CDT CULTURE BLOOD STAT 09/06/2017 12:35 PM CDT CULTURE BLOOD Timed 09/06/2017 12:11 PM CDT BLOOD GASES ART COMPLETE [facility] OR STAT 09/06/2017 12:11 PM CDT DIGOXIN LEVEL STAT 09/06/2017 12:02 PM CDT PTT [facility] STAT 09/06/2017 11:57 AM CDT PT-INR [facility] STAT 09/06/2017 11:57 AM CDT TROPONIN I STAT 09/06/2017 11:57 AM CDT COMPREHENSIVE METABOLIC PANEL STAT 09/06/2017 11:57 AM CDT CBC W AUTO DIFFERENTIAL STAT 09/06/2017 11:57 AM CDT LACTIC ACID BLOOD STAT 09/06/2017 11: 57 AM CDT CBC W AUTO DIFFERENTIAL STAT 09/06/2017 11:57 AM CDT XR CHEST 1VW PORTABLE [...] POINT OF CARE (09/19/2017 2:45 AM CDT) [facility] Glucose WB/POC 181(H) 70 - 115 mg/dL 09/19/2017 2:59 AM CDT [facility] Blood BLOOD SPECIMEN / Unknown 09/19/2017 2:45 AM CDT 09/19/2017 2:59 AM CDT Narrative [facility] - 09/19/2017 2:59 AM CDT Assistant Art Director: GONZALEZ ??LACINDA Jason Nash MD LAB - POINT OF CARE ORDERABLES [address] [phone] * (ABNORMAL) RBC MORPHOLOGY (09/19/2017 2:43 AM CDT) Platelet Estimate Adequate Adequate 09/19/2017 5:26 AM CDT [facility] Anisocytosis 1+(A) None 09/19/2017 5:26 AM CDT [facility] Microcytes Few(A) None 09/19/2017 5:26 AM CDT [facility] Macrocytosis 1+(A) None 09/19/2017 5:26 AM CDT [facility] Hypochromia 1+(A) None 09/19/2017 5:26 AM CDT [facility] Schistocytes Occasional(A ) None 09/19/2017 5:26 AM CDT [facility] Ovalocytes 1+(A) None 09/19/2017 5:26 AM CDT [facility] Blood BLOOD SPECIMEN / Unknown Venipuncture / Unknown 09/19/2017 2:43 AM CDT 09/19/2017 3:39 AM CDT Rebecca Melendez DATA QUALITY CONSULTANT-[facility] LAB - HEMATOLOGY ORDERABLES Performing Organization Address City/[facility]/ZIP Co de Phone Number [address] [phone] * MAGNESIUM BLOOD (09/19/2017 2:43 AM CDT) Pathologist [facility] Magnesium 1.7 1.6 - 2.6 mg/dL 09/19/2017 4:19 AM CDT [facility] Blood BLOOD SPECIMEN / Unknown Venipuncture / Unknown 09/19/2017 2:43 AM CDT 09/19/2017 3:39 AM CDT Rebecca Melendez DATA QUALITY CONSULTANT-[facility] LAB - CHEMISTRY O RDERABLES [address] [phone] * (ABNORMAL) CBC W AUTO DIFFERENTIAL (09/19/2017 2:43 AM CDT) WBC 8.5 3.5 - 10.5 10? 3 /uL 09/19/2017 4:25 AM [facility] RBC 2.85(L) 4.30 - 5.70 10? 6 /uL 09/19/2017 4:25 AM [facility] Hemoglobin 8.1(L) 13.5 - 17.5 g/dL 09/19/2017 4:25 AM [facility] Hematocrit 28.0(L) 39.0 - 50.0 % 09/19/2017 4:25 AM [facility] MCV 98.2(H) 81.0 - 97.0 fL 09/19/2017 4:25 AM [facility] MCH 28.4 28.0 - 34.0 pg 09/19/2017 4:25 AM [facility] MCHC 28.9(L) 32.0 - 36.0 g/dL 09/19/2017 4:25 AM [facility] Platelet Count 208 150 - 400 10? 3 /uL 09/19/2017 4:25 AM [facility] RDW-SD 76.4(H) 36.0 - 50.0 fL 09/19/2017 4:25 AM [facility] RDW-CV 21.3(H) 11.2 - 14.8 % 09/19/2017 4:25 AM [facility] MPV 13.4(H) 9.3 - 12.8 fL 09/19/2017 4:25 AM [facility] Neutrophils % 79.2(H) 35.0 - 70.0 % 09/19/2017 4:25 AM [facility] Lymphocytes % 9.5(L) 19.7 - 55.1 % 09/19/2017 4:25 AM [facility] Monocytes % 6.7 3.0 - 15.0 % 09/19/2017 4:25 AM [facility] Eosinophils % 4.4 0.0 - 6.0 % 09/19/2017 4:25 AM [facility] Basophil % 0.2 0.0 - 1.5 % 09/19/2017 4:25 AM [facility] Neutrophils Absolute 6.8 1.6 - 7.0 10? 3 /uL 09/19/2017 4:25 AM [facility] Lymphocyte Absolute 0.8 0.8 - 2.9 10? 3 /uL 09/19/2017 4:25 AM [facility] Monocytes Absolute 0.57 0.14 - 0.66 10? 3 /uL 09/19/2017 4:25 AM [facility] Eosinophils Absolute 0.38(H) 0.00 - 0.22 10? 3 /uL 09/19/2017 4:25 AM [facility] Basophils Absolute 0.02 0.00 - 0.06 10? 3 /uL 09/19/2017 4:25 AM [facility] Reflex Status Morphology review to follow. 09/19/2017 4:25 AM [facility] Immature Granulocytes % 0.5 0.0 - 1.0 % 09/19/2017 4:25 AM [facility] Blood BLOOD SPECIMEN / Unknown Venipuncture / Unknown 09/19/2017 2:43 AM CDT 09/19/2017 3:39 AM CDT Rebecca Melendez DATA QUALITY CONSULTANT-[facility] LAB - HEMATOLOGY ORDERABLES Performing Organization Address City/State/[facility] Co de Phone Number [address] [phone] * (ABNORMAL) BASIC METABOLIC PANEL (CALCIUM TOTAL) (09/19/2017 2:43 AM CDT) BUN 26 7 - 26 mg/dL 09/19/2017 4:19 AM [facility] Creatinine 0.6 0.6 - 1.2 mg/dL 09/19/2017 4:19 AM [facility] Sodium 138 136 - 145 mmol/L 09/19/2017 4:19 AM [facility] Potassium 4.9(H) 3.5 - 4.5 mmol/L 09/19/2017 4:19 AM [facility] Chloride 98 98 - 107 mmol/L 09/19/2017 4:19 AM [facility] CO2 34(H) 22 - 29 mmol/L 09/19/2017 4:19 AM [facility] Glucose 153(H) 70 - 115 mg/dL 09/19/2017 4:19 AM [facility] Calcium 9.1 8.4 - 10.2 mg/dL 09/19/2017 4:19 AM [facility] Anion Gap 11 8 - 18 09/19/2017 4:19 AM [facility] BUN/Creatinine Ratio 43(H) 7 - 23 09/19/2017 4:19 AM [facility] Osmolality Calculated 294 270 - 300 mOsm/kg 09/19/2017 4:19 AM [facility] eGFR >60 >60 mL/min/1.7 3 m2 09/19/2017 4:19 AM [facility] Blood BLOOD SPECIMEN / Unknown Venipuncture / Unknown 09/19/2017 2:43 AM CDT 09/19/2017 3:39 AM CDT Rebecca Melendez [employer] - CHEMISTRY O RDERABLES [address] [phone] * PHOSPHORUS BLOOD (09/19/2017 2:43 AM CDT) Phosphorus 2.5 2.3 - 4.7 mg/dL 09/19/2017 4:19 AM [facility] Blood BLOOD SPECIMEN / Unknown Venipuncture / Unknown 09/19/2017 2:43 AM CDT 09/19/2017 3:39 AM CDT Rebecca Maxwell Yarsani DATA QUAL[employer] - CHEMISTRY O RDER[facility]LES [address] [phone] * (ABNORMAL) GLUCOSE - POINT OF CARE (09/18/2017 4:50 PM CDT) Glucose WB/POC 140(H) 70 - 115 mg/dL 09/18/2017 5:04 PM [facility] Blood BLOOD SPECIMEN / Unknown 09/18/2017 4:50 PM CDT 09/18/2017 5:04 PM CDT Narrative [facility] - 09/18/2017 5:04 PM CDT Assistant Art Director: SMITH ??NOA Jason Nash MD LAB - POINT OF CARE ORDERABLES [facility] [address] [phone] * XR CHEST 1VW PORTABLE (09/18/2017 2:45 [...] - 115 mg/dL 09/18/2017 1:13 PM CDT [facility] Blood BLOOD SPECIMEN / Unknown 09/18/2017 1:00 PM CDT 09/18/2017 1:13 PM CDT Narrative [facility] - 09/18/2017 1:13 PM CDT Assistant Art Director: SMITH ??NOA Jason Nash MD LAB - POINT OF CARE ORDERABLES [address] [phone] * MAGNESIUM BLOOD (09/18/2017 11:04 AM CDT) Magnesium 2.6 1.6 - 2.6 mg/dL 09/18/2017 11:39 AM CDT [facility] Blood BLOOD SPECIMEN / Unknown Venipuncture / Unknown 09/18/2017 11:04 AM CDT 09/18/2017 11:06 AM CDT Jason Nash MD LAB - CHEMISTRY ORDMarj KLINE Performing Organization Address City/[facility]/ZIP Co de Phone Number [address] [phone] * PHOSPHORUS BLOOD (09/18/2017 12:03 AM CDT) Phosphorus 2.8 2.3 - 4.7 mg/dL 09/18/2017 12:48 AM CDT [facility] Blood BLOOD SPECIMEN / Unknown Lab Venipuncture / Unknown 09/18/2017 12:03 AM CDT 09/18/2017 12:03 AM CDT Rebecca Melendez APRN-[facility] LAB - CHEMISTRY [place] [address], [place] [phone] * MAGNESIUM BLOOD (09/18/2017 12:03 AM CDT) Pathologist [facility] Magnesium 2.0 1.6 - 2.6 mg/dL 09/18/2017 12:48 AM [facility] Blood BLOOD SPECIMEN / Unknown Lab Venipuncture / Unknown 09/18/2017 12:03 AM CDT 09/18/2017 12:03 AM CDT Rebecca Alissa Melendez DATA QUALITY CONSULTANT-[facility] - CHEMISTRY O RDERABLES [facility] [address] [phone] * (ABNORMAL) CBC W AUTO DIFFERENTIAL (09/18/2017 12:03 AM CDT) Pathologist [facility] WBC 8.7 3.5 - 10.5 10? 3 /uL 09/18/2017 12:31 AM [facility] RBC 3.09(L) 4.30 - 5.70 10? 6 /uL 09/18/2017 12:31 AM [facility] Hemoglobin 8.8(L) 13.5 - 17.5 g/dL 09/18/2017 12:31 AM [facility] Hematocrit 29.6(L) 39.0 - 50.0 % 09/18/2017 12:31 AM [facility] MCV 95.8 81.0 - 97.0 fL 09/18/2017 12:31 AM [facility] MCH 28.5 28.0 - 34.0 pg 09/18/2017 12:31 AM [facility] MCHC 29.7(L) 32.0 - 36.0 g/dL 09/18/2017 12:31 AM [facility] Platelet Count 199 150 - 400 10? 3 /uL 09/18/2017 12:31 AM [facility] RDW-SD 76.1(H) 36.0 - 50.0 fL 09/18/2017 12:31 AM [facility] RDW-CV 21.4(H) 11.2 - 14.8 % 09/18/2017 12:31 AM [facility] MPV 13.3(H) 9.3 - 12.8 fL 09/18/2017 12:31 AM [facility] Neutrophils % 79.2(H) 35.0 - 70.0 % 09/18/2017 12:31 AM [facility] Lymphocytes % 10.1(L) 19.7 - 55.1 % 09/18/2017 12:31 AM [facility] Monocytes % 7.4 3.0 - 15.0 % 09/18/2017 12:31 AM [facility] Eosinophils % 3.1 0.0 - 6.0 % 09/18/2017 12:31 AM [facility] Basophil % 0.2 0.0 - 1.5 % 09/18/2017 12:31 AM [facility] Neutrophils Absolute 6.9 1.6 - 7.0 10? 3 /uL 09/18/2017 12:31 AM [facility] Lymphocyte Absolute 0.9 0.8 - 2.9 10? 3 /uL 09/18/2017 12:31 AM [facility] Monocytes Absolute 0.64 0.14 - 0.66 10? 3 /uL 09/18/2017 12:31 AM [facility] Eosinophils Absolute 0.27(H) 0.00 - 0.22 10? 3 /uL 09/18/2017 12:31 AM [facility] Basophils Absolute 0.02 0.00 - 0.06 10? 3 /uL 09/18/2017 12:31 AM [facility] Immature Granulocytes % 0.3 0.0 - 1.0 % 09/18/2017 12:31 AM [facility] Blood BLOOD SPECIMEN / Unknown Lab Venipuncture / Unknown 09/18/2017 12:03 AM T 09/18/2017 12:03 AM [facility] Rebecca Melendez DATA QUALITY CONSULTANT-[facility] LAB - HEMATOLOGY ORDERABLES [facility] [address] [phone] * (ABNORMAL) BASIC METABOLIC PANEL (CALCIUM TOTAL) (09/18/2017 12:03 AM CDT) BUN 25 7 - 26 mg/dL 09/18/2017 12:48 AM [facility] Creatinine 0.6 0.6 - 1.2 mg/dL 09/18/2017 12:48 AM [facility] Sodium 140 136 - 145 mmol/L 09/18/2017 12:48 AM [facility] Potassium 3.4(L) 3.5 - 4.5 mmol/L 09/18/2017 12:48 AM [facility] Chloride 95(L) 98 - 107 mmol/L 09/18/2017 12:48 AM [facility] CO2 35(H) 22 - 29 mmol/L 09/18/2017 12:48 AM [facility] Glucose 135(H) 70 - 115 mg/dL 09/18/2017 12:48 AM [facility] Calcium 9.0 8.4 - 10.2 mg/dL 09/18/2017 12:48 AM [facility] Anion Gap 13 8 - 18 09/18/2017 12:48 AM [facility] BUN/Creatinine Ratio 42(H) 7 - 23 09/18/2017 12:48 AM [facility] Osmolality Calculated 296 270 - 300 mOsm/kg 09/18/2017 12:48 AM [facility] eGFR >60 >60 mL/min/1.7 3 m2 09/18/2017 12:48 AM [facility] Blood BLOOD SPECIMEN / Unknown Lab Venipuncture / Unknown 09/18/2017 12:03 AM CDT 09/18/2017 12:03 AM CDT Rebecca Melendez DATA QUALITY CONSULTANT[facility] - CHEMISTRY O RDERABLES [address] [phone] * (ABNORMAL) GLUCOSE - POINT OF CARE (09/17/2017 7:18 PM CDT) Glucose WB/POC 157(H) 70 - 115 mg/dL 09/17/2017 7:31 PM CDT [facility] Blood BLOOD SPECIMEN / Unknown 09/17/2017 7:18 PM CDT 09/17/2017 7:31 PM CDT Narrative [facility] - 09/17/2017 7:31 PM CDT Assistant Art Director: SLACK ??QUE Jason Nash MD LAB - POINT OF CARE ORDERABLES Performing Organization Address City/[facility]/ZIP Co de Phone Number [address] [phone] * (ABNORMAL) GLUCOSE - POINT OF CARE (09/17/2017 12:04 PM CDT) Glucose WB/POC 164(H) 70 - 115 mg/dL 09/17/2017 12:24 PM CDT [facility] Blood BLOOD SPECIMEN / Unknown 09/17/2017 12:04 PM CDT 09/17/2017 12:23 PM CDT Narrative [facility] - 09/17/2017 12:24 PM CDT Assistant Art Director: SLACK ??QUE Jason Nash MD LAB - POINT OF CARE ORDERABLES Performing Organization Address [facility]/ZIP Co de Phone Number [address] [phone] * (ABNORMAL) RBC MORPHOLOGY (09/17/2017 4:33 AM CDT) Platelet Estimate Adequate Adequate 09/17/2017 5:55 AM CDT [facility] Microcytes 1+(A) None 09/17/2017 5:55 AM CDT [facility] Hypochromia 1+(A) None 09/17/2017 5:55 AM CDT [facility] Ovalocytes 1+(A) None 09/17/2017 5:55 AM CDT [facility] Blood BLOOD SPECIMEN / Unknown Venipuncture / Unknown 09/17/2017 4:33 AM CDT 09/17/2017 4:42 AM CDT Rebecca Melendez DATA QUALITY CONSULTANT[facility] - HEMATOLOGY ORDERABLES [address] [phone] * MAGNESIUM BLOOD (09/17/2017 4:33 AM CDT) [facility] Magnesium 1.9 1.6 - 2.6 mg/dL 09/17/2017 5:16 AM [facility] Blood BLOOD SPECIMEN / Unknown Venipuncture / Unknown 09/17/2017 4:33 AM CDT 09/17/2017 4:42 AM CDT Rebecca Melendez DATA QUALITY CONSULTANT[facility] - CHEMISTRY O RDERABLES [address] [phone] * (ABNORMAL) CBC W AUTO DIFFERENTIAL (09/17/2017 4:33 AM CDT) [facility] WBC 8.1 3.5 - 10.5 10? 3 /uL 09/17/2017 5:05 AM [facility] RBC 3.04(L) 4.30 - 5.70 10? 6 /uL 09/17/2017 5:05 AM [facility] Hemoglobin 8.7(L) 13.5 - 17.5 g/dL 09/17/2017 5:05 AM [facility] Hematocrit 29.2(L) 39.0 - 50.0 % 09/17/2017 5:05 AM [facility] MCV 96.1 81.0 - 97.0 fL 09/17/2017 5:05 AM [facility] MCH 28.6 28.0 - 34.0 pg 09/17/2017 5:05 AM [facility] MCHC 29.8(L) 32.0 - 36.0 g/dL 09/17/2017 5:05 AM [facility] Platelet Count 182 150 - 400 10? 3 /uL 09/17/2017 5:05 AM [facility] RDW-SD 76.7(H) 36.0 - 50.0 fL 09/17/2017 5:05 AM [facility] RDW-CV 21.9(H) 11.2 - 14.8 % 09/17/2017 5:05 AM [facility] MPV 13.6(H) 9.3 - 12.8 fL 09/17/2017 5:05 AM [facility] Neutrophils % 78.7(H) 35.0 - 70.0 % 09/17/2017 5:05 AM [facility] Lymphocytes % 10.7(L) 19.7 - 55.1 % 09/17/2017 5:05 AM [facility] Monocytes % 8.0 3.0 - 15.0 % 09/17/2017 5:05 AM [facility] Eosinophils % 2.1 0.0 - 6.0 % 09/17/2017 5:05 AM [facility] Basophil % 0.5 0.0 - 1.5 % 09/17/2017 5:05 AM [facility] Neutrophils Absolute 6.4 1.6 - 7.0 10? 3 /uL 09/17/2017 5:05 AM [facility] Lymphocyte Absolute 0.9 0.8 - 2.9 10? 3 /uL 09/17/2017 5:05 AM [facility] Monocytes Absolute 0.65 0.14 - 0.66 10? 3 /uL 09/17/2017 5:05 AM [facility] Eosinophils Absolute 0.17 0.00 - 0.22 10? 3 /uL 09/17/2017 5:05 AM [facility] Basophils Absolute 0.04 0.00 - 0.06 10? 3 /uL 09/17/2017 5:05 AM [facility] Immature Granulocytes % 0.5 0.0 - 1.0 % 09/17/2017 5:05 AM [facility] Blood BLOOD SPECIMEN / Unknown Venipuncture / Unknown 09/17/2017 4:33 AM CDT 09/17/2017 4:42 AM [facility] Rebecca Melendez DATA QUALITY CONSULTANT-[facility] - HEMATOLOGY ORDERABLES [facility] [address] [phone] * (ABNORMAL) BASIC METABOLIC PANEL (CALCIUM TOTAL) (09/17/2017 4:33 AM CDT) Pathologist [facility] BUN 19 7 - 26 mg/dL 09/17/2017 5:16 AM [facility] Creatinine 0.6 0.6 - 1.2 mg/dL 09/17/2017 5:16 AM [facility] Sodium 139 136 - 145 mmol/L 09/17/2017 5:16 AM [facility] Potassium 3.6 3.5 - 4.5 mmol/L 09/17/2017 5:16 AM [facility] Chloride 96(L) 98 - 107 mmol/L 09/17/2017 5:16 AM [facility] CO2 32(H) 22 - 29 mmol/L 09/17/2017 5:16 AM [facility] Glucose 120(H) 70 - 115 mg/dL 09/17/2017 5:16 AM [facility] Calcium 8.8 8.4 - 10.2 mg/dL 09/17/2017 5:16 AM [facility] Anion Gap 15 8 - 18 09/17/2017 5:16 AM [facility] BUN/Creatinine Ratio 32(H) 7 - 23 09/17/2017 5:16 AM [facility] Osmolality Calculated 291 270 - 300 mOsm/kg 09/17/2017 5:16 AM [facility] eGFR >60 >60 mL/min/1.7 3 m2 09/17/2017 5:16 AM [facility] Blood BLOOD SPECIMEN / Unknown Venipuncture / Unknown 09/17/2017 4:33 AM CDT 09/17/2017 4:42 AM CDT Rebecca Melendez APRN-[facility] LAB - CHEMISTRY O RDERABLES [address] [phone] * PHOSPHORUS BLOOD (09/17/2017 4:33 AM CDT) [facility] Phosphorus 3.2 2.3 - 4.7 mg/dL 09/17/2017 5:16 AM CDT [facility] Blood BLOOD SPECIMEN / Unknown Venipuncture / Unknown 09/17/2017 4:33 AM CDT 09/17/2017 4:42 AM CDT Rebecca Alissa Yarsani DATA QUALITY CONSULTANT[facility] - CHEMISTRY [place] [address], [facility] [phone] * GLUCOSE - POINT OF CARE (09/16/2017 11:18 PM CDT) Glucose WB/POC 111 70 - 115 mg/dL 09/16/2017 11:32 PM CDT [facility] Blood BLOOD SPECIMEN / Unknown 09/16/2017 11:18 PM CDT 09/16/2017 11:32 PM CDT [facility] - 09/16/2017 11:32 PM CDT Assistant Art Director: AMY ??CHRISTIANO Jason Nash MD LAB - POINT OF CARE ORDERABLES Performing Organization Address City/[facility]/ZIP [place] [address], [facility] [phone] * GLUCOSE - POINT OF CARE (09/16/2017 6:41 PM CDT) Glucose WB/POC 98 70 - 115 mg/dL 09/16/2017 6:55 PM CDT [facility] Blood BLOOD SPECIMEN / Unknown 09/16/2017 6:41 PM CDT 09/16/2017 6:55 PM CDT Narrative [facility] - 09/16/2017 6:55 PM CDT Assistant Art Director: SG ??JOSE L Jason Nash MD LAB - POINT OF [place] [address], [facility] [phone] * GLUCOSE - POINT OF CARE (09/16/2017 12:22 PM CDT) Glucose WB/POC 91 70 - 115 mg/dL 09/16/2017 12:35 PM CDT [facility] Blood BLOOD SPECIMEN / Unknown 09/16/2017 12:22 PM CDT 09/16/2017 12:35 PM CDT Narrative [facility] - 09/16/2017 12:35 PM CDT Assistant Art Director: CHELA ??GLADYS Jason Nash MD LAB - POINT OF CARE ORDERABLES [address] [phone] * GLUCOSE - POINT OF CARE (09/16/2017 5:56 AM CDT) [facility] Glucose WB/POC 79 70 - 115 mg/dL 09/16/2017 6:10 AM CDT [facility] Blood BLOOD SPECIMEN / Unknown 09/16/2017 5:56 AM CDT 09/16/2017 6:10 AM CDT Narrative [facility] - 09/16/2017 6:10 AM CDT Assistant Art Director: LYUBOV ?MARCOS Jason Nash MD LAB - POINT OF CARE ORDERABLES Performing Organization Address City/[facility]/ZIP Co de Phone Number [address] [phone] * (ABNORMAL) RBC MORPHOLOGY (09/16/2017 4:13 AM CDT) [facility] Platelet Estimate Adequate Adequate 09/16/2017 5:12 AM CDT [facility] Anisocytosis 1+(A) None 09/16/2017 5:12 AM CDT [facility] Hypochromia 1+(A) None 09/16/2017 5:12 AM CDT [facility] Blood BLOOD SPECIMEN / Unknown Venipuncture / Unknown 09/16/2017 4:13 AM CDT 09/16/2017 4:18 AM CDT Veronica Costello MD LAB - HEMATOLOGY ORD ERABLES [facility] [address] [phone] * (ABNORMAL) CBC W AUTO DIFFERENTIAL (09/16/2017 4:13 AM T) WBC 8.5 3.5 - 10.5 10? 3 /uL 09/16/2017 4:25 AM [facility] RBC 2.87(L) 4.30 - 5.70 10? 6 /uL 09/16/2017 4:25 AM [facility] Hemoglobin 8.1(L) 13.5 - 17.5 g/dL 09/16/2017 4:25 AM [facility] Hematocrit 27.6(L) 39.0 - 50.0 % 09/16/2017 4:25 AM [facility] MCV 96.2 81.0 - 97.0 fL 09/16/2017 4:25 AM [facility] MCH 28.2 28.0 - 34.0 pg 09/16/2017 4:25 AM [facility] MCHC 29.3(L) 32.0 - 36.0 g/dL 09/16/2017 4:25 AM [facility] Platelet Count 172 150 - 400 10? 3 /uL 09/16/2017 4:25 AM [facility] RDW-SD 76.1(H) 36.0 - 50.0 fL 09/16/2017 4:25 AM [facility] RDW-CV 22.0(H) 11.2 - 14.8 % 09/16/2017 4:25 AM [facility] MPV 12.8 9.3 - 12.8 fL 09/16/2017 4:25 AM [facility] Neutrophils % 80.7(H) 35.0 - 70.0 % 09/16/2017 4:25 AM [facility] Lymphocytes % 9.9(L) 19.7 - 55.1 % 09/16/2017 4:25 AM [facility] Monocytes % 7.0 3.0 - 15.0 % 09/16/2017 4:25 AM [facility] Eosinophils % 2.2 0.0 - 6.0 % 09/16/2017 4:25 AM CDT [facility] Basophil % 0.2 0.0 - 1.5 % 09/16/2017 4:25 AM T [facility] Neutrophils Absolute 6.8 1.6 - 7.0 10? 3 /uL 09/16/2017 4:25 AM T [facility] Lymphocyte Absolute 0.8 0.8 - 2.9 10? 3 /uL 09/16/2017 4:25 AM T [facility] Monocytes Absolute 0.59 0.14 - 0.66 10? 3 /uL 09/16/2017 4:25 AM T [facility] Eosinophils Absolute 0.19 0.00 - 0.22 10? 3 /uL 09/16/2017 4:25 AM T [facility] Basophils Absolute 0.02 0.00 - 0.06 10? 3 /uL 09/16/2017 4:25 AM [facility] Immature Granulocytes % 0.7 0.0 - 1.0 % 09/16/2017 4:25 AM T [facility] Blood BLOOD SPECIMEN / Unknown Venipuncture / Unknown 09/16/2017 4:13 AM CDT 09/16/2017 4:18 AM CDT Veronica Costello MD LAB - HEMATOLOGY ORD ERABLES [address] [phone] * MAGNESIUM BLOOD (09/16/2017 4:13 AM CDT) Magnesium 2.1 1.6 - 2.6 mg/dL 09/16/2017 4:39 AM CDT [facility] Blood BLOOD SPECIMEN / Unknown Venipuncture / Unknown 09/16/2017 4:13 AM CDT 09/16/2017 4:17 AM CDT Veronica Costello MD LAB - CHEMISTRY ORDE RAISA [address] [phone] * (ABNORMAL) BASIC METABOLIC PANEL (CALCIUM TOTAL) (09/16/2017 4:13 AM CDT) BUN 18 7 - 26 mg/dL 09/16/2017 4:39 AM [facility] Creatinine 0.6 0.6 - 1.2 mg/dL 09/16/2017 4:39 AM [facility] Sodium 138 136 - 145 mmol/L 09/16/2017 4:39 AM [facility] Potassium 4.1 3.5 - 4.5 mmol/L 09/16/2017 4:39 AM [facility] Chloride 96(L) 98 - 107 mmol/L 09/16/2017 4:39 AM [facility] CO2 32(H) 22 - 29 mmol/L 09/16/2017 4:39 AM [facility] Glucose 92 70 - 115 mg/dL 09/16/2017 4:39 AM [facility] Calcium 8.8 8.4 - 10.2 mg/dL 09/16/2017 4:39 AM [facility] Anion Gap 14 8 - 18 09/16/2017 4:39 AM [facility] BUN/Creatinine Ratio 30(H) 7 - 23 09/16/2017 4:39 AM [facility] Osmolality Calculated 288 270 - 300 mOsm/kg 09/16/2017 4:39 AM [facility] eGFR >60 >60 mL/min/1.7 3 m2 09/16/2017 4:39 AM [facility] Blood BLOOD SPECIMEN / Unknown Venipuncture / Unknown 09/16/2017 4:13 AM CDT 09/16/2017 4:17 AM T Veronica Costello MD LAB - CHEMISTRY ROYCE KLINE [facility] Organization Address City/State/ZIP Co de Phone Number [facility] [address] [phone] * PHOSPHORUS BLOOD (09/16/2017 4:13 AM T) Phosphorus 2.6 2.3 - 4.7 mg/dL 09/16/2017 4:39 AM [facility] Blood BLOOD SPECIMEN / Unknown Venipuncture / Unknown 09/16/2017 4:13 AM CDT 09/16/2017 4:17 AM CDT Delphine EAGLE LAB - CHEMISTRY ORDERABLES [address] [phone] * GLUCOSE - POINT OF CARE (09/16/2017 12:23 AM CDT) Glucose WB/POC 89 70 - 115 mg/dL 09/16/2017 12:36 AM CDT [facility] Blood BLOOD SPECIMEN / Unknown 09/16/2017 12:23 AM CDT 09/16/2017 12:36 AM CDT [facility] - 09/16/2017 12:36 AM CDT Assistant Art Director: LYUBOV ??RADHA Jason Nash MD LAB - POINT OF CARE ORDERABLES [address] [phone] * GLUCOSE - POINT OF CARE (09/15/2017 6:01 PM CDT) Glucose WB/POC 99 70 - 115 mg/dL 09/15/2017 6:33 PM CDT [facility] Blood BLOOD SPECIMEN / Unknown 09/15/2017 6:01 PM CDT 09/15/2017 6:33 PM CDT Narrative [facility] - 09/15/2017 6:33 PM CDT Assistant Art Director: SG ??JOSE L Jason Nash MD LAB - POINT OF CARE ORDERABLES [address] [phone] * GLUCOSE - POINT OF CARE (09/15/2017 11:56 AM CDT) Glucose WB/POC 104 70 - 115 mg/dL 09/15/2017 12:09 PM CDT [facility] Blood BLOOD SPECIMEN / Unknown 09/15/2017 11:56 AM CDT 09/15/2017 12:09 PM CDT Narrative [facility] - 09/15/2017 12:09 PM CDT Assistant Art Director: CHELA ??GLADYS Jason Nash MD LAB - POINT OF CARE ORDERABLES Performing Organization Address City/State/[facility] Co de Phone Number [address] [phone] * EGD (09/15/2017 8:58 AM CDT) Report [...] insertion. The externally ? removable 24 Fr [employer] gastrostomy tube was lubricated. The G-tube ? [...] Procedure Code(s): ? --- Professional --- ? 88749, Esophagogastroduoden oscopy, flexible, transoral; with directed ? placement of percutaneous gastrostomy tube Diagnosis Code(s): ?--- Professional --- ?R13.10, Dysphagia, unspecified ?Z43.1, Encounter for attention to gastrostomy ?R63.3, Feeding difficulties CPT copyright 2016 [employer]. All rights reserved. The codes documented in this report are preliminary and upon clothes marker review may be revised to meet current compliance requirements. Louis Mcconnell MD 09/15/2017 10:44:23 AM Note Initiated On: 09/15/2017 8:58 AM Number of Addenda: 0 ? [facility] ? [address] 09/15/2017 8:58 AM CDT Louis Mcconnell MD GI PROCEDURE ORDERAB LES Performing Organization Address City/[facility] Co de Phone Number [facility] * GLUCOSE - POINT OF CARE (09/15/2017 8:05 AM CDT) Glucose WB/POC 97 70 - 115 mg/dL 09/15/2017 8:18 AM CDT [facility] Blood BLOOD SPECIMEN / Unknown 09/15/2017 8:05 AM CDT 09/15/2017 8:18 AM CDT Narrative [facility] - 09/15/2017 8:18 AM CDT Assistant Art Director: CHELA CRAIN Jason Nash MD LAB - POINT OF CARE ORDERABLES [facility] [address] [place] [address] * XR CHEST 1VW PORTABLE (09/15/2017 5:22 [...] is normal. Dictated by Jay Bowens MD (residential therapist). This report was approved ??by Jay Bowens Dr ?? on 09/16/2017 4:35 PM . Siomara, Dr. PAOLO AGUILAR M.D. have personally reviewed [...] is normal. Dictated by Jay Bowens MD (residential therapist). This report was approved by Jay Bowens [...] 8.6 10? 3 /uL 09/15/2017 6:06 AM [facility] Total Cell Count 100 09/16/19 18 6:06 AM [facility] Neutrophils Absolute Manual 7.48(H) 1.60 - 7.00 10? 3 /uL 09/15/2017 6:06 AM [facility] Comment:(BANDS+SEGS) x WBC = NEUT # (ANC) Lymphocyte Absolute Manual 0.77(L) 0.80 - 2.90 10? 3 /uL 09/15/2017 6:06 AM [facility] Monocytes Absolute Manual 0.34 0.14 - 0.66 10? 3 /uL 09/15/2017 6:06 AM [facility] Neutrophil % Manual 87(H) 30 - 60 % 09/15/2017 6:06 AM [facility] Lymphocyte % Manual 9(L) 20 - 45 % 09/15/2017 6:06 AM [facility] Monocytes % Manual 4 2 - 10 % 09/15/2017 6:06 AM [facility] Platelet Estimate Adequate Adequate 09/15/2017 6:06 AM [facility] Anisocytosis 1+(A) None 09/15/2017 6:06 AM [facility] Hypochromia 1+(A) None 09/15/2017 6:06 AM [facility] Schistocytes Few(A) None 09/15/2017 6:06 AM [facility] Ovalocytes 1+(A) None 09/15/2017 6:06 AM [facility] Blood BLOOD SPECIMEN / Unknown Venipuncture / Unknown 09/15/2017 4:41 AM CDT 09/15/2017 4:56 AM CDT Veronica Costello MD LAB - HEMATOLOGY ORD ERABLES [facility] [address] [phone] * TYPE + SCREEN PANEL (09/15/2017 4:41 AM CDT) Pathologist [facility] Antibody Screen NEG 8 6:06 AM CDT [facility] BLOOD B[facility] LAB ABO Rh A POS 09/15/2017 6:06 AM CDT [facility] LAB Blood Bank BLOOD SPECIMEN / Unknown Venipuncture / Unknown 09/15/2017 4:41 AM CDT 09/15/2017 5:13 AM CDT Delphine Waddell DATA [facility] LAB - BLOOD BANK ORDERABLES [facility] BLOOD [facility] LAB [address] * (ABNORMAL) CBC W AUTO DIFFERENTIAL (09/15/2017 4:41 AM CDT) [facility] WBC 8.6 3.5 - 10.5 10? 3 /uL 09/15/2017 5:20 AM [facility] RBC 2.89(L) 4.30 - 5.70 10? 6 /uL 09/15/2017 5:20 AM [facility] Hemoglobin 8.2(L) 13.5 - 17.5 g/dL 09/15/2017 5:20 AM [facility] Hematocrit 27.6(L) 39.0 - 50.0 % 09/15/2017 5:20 AM [facility] MCV 95.5 81.0 - 97.0 fL 09/15/2017 5:20 AM [facility] MCH 28.4 28.0 - 34.0 pg 09/15/2017 5:20 AM [facility] MCHC 29.7(L) 32.0 - 36.0 g/dL 09/15/2017 5:20 AM [facility] Platelet Count 186 150 - 400 10? 3 /uL 09/15/2017 5:20 AM [facility] RDW-SD 74.8(H) 36.0 - 50.0 fL 09/15/2017 5:20 AM [facility] RDW-CV 22.0(H) 11.2 - 14.8 % 09/15/2017 5:20 AM CDT [facility] MPV 13.1(H) 9.3 - 12.8 fL 09/15/2017 5:20 AM CDT [facility] Blood BLOOD SPECIMEN / Unknown Venipuncture / Unknown 09/15/2017 4:41 AM CDT 09/15/2017 4:56 AM CDT Veronica Costello MD LAB - HEMATOLOGY ORD ERABLES [address] [phone] * MAGNESIUM BLOOD (09/15/2017 4:41 AM CDT) Magnesium 1.8 1.6 - 2.6 mg/dL 09/15/2017 5:51 AM CDT [facility] Blood BLOOD SPECIMEN / Unknown Venipuncture / Unknown 09/15/2017 4:41 AM CDT 09/15/2017 4:56 AM CDT Veronica Costello MD LAB - CHEMISTRY ORDMarj KLINE [address] [phone] * (ABNORMAL) BASIC METABOLIC PANEL (CALCIUM TOTAL) (09/15/2017 4:41 AM CDT) BUN 23 7 - 26 mg/dL 09/15/2017 5:51 AM CDT [facility] Creatinine 0.6 0.6 - 1.2 mg/dL 09/15/2017 5:51 AM T [facility] Sodium 138 136 - 145 mmol/L 09/15/2017 5:51 AM CDT [facility] Potassium 3.8 3.5 - 4.5 mmol/L 09/15/2017 5:51 AM T [facility] Chloride 95(L) 98 - 107 mmol/L 09/15/2017 5:51 AM T [facility]ORATORY [facility] CO2 33(H) 22 - 29 mmol/L 09/15/2017 5:51 AM [facility] Glucose 103 70 - 115 mg/dL 09/15/2017 5:51 AM [facility] Calcium 8.8 8.4 - 10.2 mg/dL 09/15/2017 5:51 AM [facility] Anion Gap 14 8 - 18 09/15/2017 5:51 AM [facility] BUN/Creatinine Ratio 38(H) 7 - 23 09/15/2017 5:51 AM [facility] Osmolality Calculated 290 270 - 300 mOsm/kg 09/15/2017 5:51 AM [facility] eGFR >60 >60 mL/min/1.7 3 m2 09/15/2017 5:51 AM [facility] Blood BLOOD SPECIMEN / Unknown Venipuncture / Unknown 09/15/2017 4:41 AM CDT 09/15/2017 4:56 AM CDT Veronica Costello MD LAB - CHEMISTRY ROYCE KLINE [facility] Organization Address City/State/ZIP Co de Phone Number [facility] [address] [place] [address] * (ABNORMAL) B-TYPE NATRIURETIC PEPTIDE (09/15/2017 4:41 AM CDT) BNP 694(H) See Comment pg/mL 09/15/2017 5:35 AM [facility] Comment: A decision threshold of 100 pg/mL [...] - CHEMISTRY ROYCE KLINE Performing Organization Address [facility]/State/[facility] Co de Phone Number [facility] [address] [place] [address], [facility] [phone] * (ABNORMAL) PT-INR [facility] (09/15/2017 4:41 AM CDT) [facility] Signature PT 15.1(H) 12.1 - 14.8 Seconds 09/15/2017 5:33 AM CDT [facility] INR 1.2 See Comment 09/15/2017 5:33 AM CDT [facility] Comment: Suggested therapeutic range for low-intensity [...] - COAGULATION OR DERABLES Performing Organization Address City/[facility]/ZIP Co de Phone Number [address] [phone] * (ABNORMAL) GLUCOSE - POINT OF CARE (09/15/2017 2:23 AM CDT) Glucose WB/POC 145(H) 70 - 115 mg/dL 09/15/2017 2:38 AM CDT [facility] Blood BLOOD SPECIMEN / Unknown 09/15/2017 2:23 AM CDT 09/15/2017 2:38 AM CDT Narrative [facility] - 09/15/2017 2:38 AM CDT Assistant Art Director: SHEREE ROJAS Jason Nash MD LAB - POINT OF CARE ORDERABLES Performing Organization Address [facility]/ZIP [place] [address], [facility] [phone] * (ABNORMAL) GLUCOSE - POINT OF CARE (09/14/2017 7:45 PM CDT) Glucose WB/POC 165(H) 70 - 115 mg/dL 09/14/2017 8:08 PM CDT [facility] Blood BLOOD SPECIMEN / Unknown 09/14/2017 7:45 PM CDT 09/14/2017 8:08 PM CDT Narrative [facility] - 09/14/2017 8:08 PM CDT Assistant Art Director: SHEREE ROJAS Jason Nash MD LAB - POINT OF CARE ORDERABLES Performing Organization Address City/[facility]/ZIP [place] [address], [facility] [phone] * (ABNORMAL) GLUCOSE - POINT OF CARE (09/14/2017 6:27 PM CDT) Glucose WB/POC 170(H) 70 - 115 mg/dL 09/14/2017 6:48 PM CDT [facility] Blood BLOOD SPECIMEN / Unknown 09/14/2017 6:27 PM CDT 09/14/2017 6:48 PM CDT [facility] - 09/14/2017 6:48 PM CDT Assistant Art Director: STRUM ?WYATT Jason Nash MD LAB - POINT OF CARE ORDERABLES Performing Organization Address [facility]/ZIP Co de Phone Number [address] [phone] * (ABNORMAL) GLUCOSE - POINT OF CARE (09/14/2017 12:46 PM CDT) Glucose WB/POC 183(H) 70 - 115 mg/dL 09/14/2017 1:16 PM CDT [facility] Blood BLOOD SPECIMEN / Unknown 09/14/2017 12:46 PM CDT 09/14/2017 1:16 PM CDT [facility] - 09/14/2017 1:16 PM CDT Assistant Art Director: STRUM ?WYATT Jason Nash MD LAB - POINT OF CARE ORDERABLES Performing Organization Address [facility] Co de Phone Number [address] [phone] * (ABNORMAL) GLUCOSE - POINT OF CARE (09/14/2017 6:34 AM CDT) Glucose WB/POC 149(H) 70 - 115 mg/dL 09/14/2017 6:48 AM CDT [facility] Blood BLOOD SPECIMEN / Unknown 09/14/2017 6:34 AM CDT 09/14/2017 6:48 AM CDT [facility] - 09/14/2017 6:48 AM CDT Assistant Art Director: SHEREE ??GRECIA Jason Nash MD LAB - POINT OF CARE ORDERABLES [place] [address] [phone] * XR CHEST 1VW PORTABLE (09/14/2017 6:19 [...] vascular congestion. Dictated by Jay Bowens MD (residential therapist). I, Dr. SULLY RUANO M.D. have personally [...] vascular congestion. Dictated by Jay Bowens MD (residential therapist). I, Dr. SULLY RUANO M.D. have personally reviewed and interpreted this examination/study. This report was electronically signed by SULLY RUANO M.D. on 09/14/2017 10:19 AM . Veronica Costello MD DIAGNOSTIC IMAGING O RDERABLES * (ABNORMAL) DIFFERENTIAL MANUAL (09/14/2017 5:21 AM CDT) WBC (corrected for NRBC) 10.1 10? 3 /uL 09/14/2017 6:45 AM [facility] Total Cell Count 100 09/14/2017 6:45 AM [facility] Neutrophils Absolute Manual 8.08(H) 1.60 - 7.00 10? 3 /uL 09/14/2017 6:45 AM [facility] Comment:(BANDS+SEGS) x WBC = NEUT # (ANC) Lymphocyte Absolute Manual 0.61(L) 0.80 - 2.90 10? 3 /uL 09/14/2017 6:45 AM [facility] Monocytes Absolute Manual 1.31(H) 0.14 - 0.66 10? 3 /uL 09/14/2017 6:45 AM [facility]AT[facility] Eosinophils Absolute Manual 0.10 0.00 - 0.22 10? 3 /uL 09/14/2017 6:45 AM [facility] Band % Manual 2 0 - 10 % 09/14/2017 6:45 AM [facility] Neutrophil % Manual 78(H) 30 - 60 % 09/14/2017 6:45 AM [facility] Lymphocyte % Manual 6(L) 20 - 45 % 09/14/2017 6:45 AM [facility] Monocytes % Manual 13(H) 2 - 10 % 09/14/2017 6:45 AM [facility] Eosinophils % Manual 1 1 - 6 % 09/14/2017 6:45 AM [facility] Platelet Estimate Adequate Adequate 09/14/2017 6:45 AM [facility] RBC Morphology Normal 09/14/2017 6:45 AM [facility] Blood BLOOD SPECIMEN / Unknown Venipuncture / Unknown 09/14/2017 5:21 AM CDT 09/14/2017 5:30 AM CDT Veronica Costello MD LAB - HEMATOLOGY ORD ERABLES [facility] [address] [place] [address] * (ABNORMAL) CBC W AUTO DIFFERENTIAL (09/14/2017 5:21 AM CDT) WBC 10.1 3.5 - 10.5 10? 3 /uL 09/14/2017 5:52 AM [facility] Comment:The WBC count is cor rected by the instrument for nRBC's RBC 3.00(L) 4.30 - 5.70 10? 6 /uL 09/14/2017 5:52 AM [facility] Hemoglobin 8.7(L) 13.5 - 17.5 g/dL 09/14/2017 5:52 AM [facility] Hematocrit 28.4(L) 39.0 - 50.0 % 09/14/2017 5:52 AM [facility] MCV 94.7 81.0 - 97.0 fL 09/14/2017 5:52 AM [facility] MCH 29.0 28.0 - 34.0 pg 09/14/2017 5:52 AM [facility] MCHC 30.6(L) 32.0 - 36.0 g/dL 09/14/2017 5:52 AM [facility] Platelet Count 224 150 - 400 10? 3 /uL 09/14/2017 5:52 AM [facility] RDW-SD 75.0(H) 36.0 - 50.0 fL 09/14/2017 5:52 AM [facility] RDW-CV 21.9(H) 11.2 - 14.8 % 09/14/2017 5:52 AM CDT [facility] MPV 13.2(H) 9.3 - 12.8 fL 09/14/2017 5:52 AM CDT [facility] nRBC Absolute 0.15(H) 0 10? 3 /uL 09/14/2017 5:52 AM CDT [facility] nRBC Auto 1.5(H) 0 /100 WBC 09/14/2017 5:52 AM T [facility] Reflex Status Manual Differential to follow. 09/14/2017 5:52 AM CDT [facility] Blood BLOOD SPECIMEN / Unknown Venipuncture / Unknown 09/14/2017 5:21 AM CDT 09/14/2017 5:30 AM CDT Veronica Costello MD LAB - HEMATOLOGY ORD ERABLES Performing Organization Address City/[facility]/ZIP Co de Phone Number [address] [phone] * MAGNESIUM BLOOD (09/14/2017 5:21 AM CDT) Magnesium 1.6 1.6 - 2.6 mg/dL 09/14/2017 5:53 AM T [facility] Blood BLOOD SPECIMEN / Unknown Venipuncture / Unknown 09/14/2017 5:21 AM CDT 09/14/2017 5:30 AM CDT Veronica Costello MD LAB - CHEMISTRY ORDE RABANGELIA [address] [phone] * (ABNORMAL) BASIC METABOLIC PANEL (CALCIUM TOTAL) (09/14/2017 5:21 AM CDT) BUN 21 7 - 26 mg/dL 09/14/2017 5:53 AM T [facility] Creatinine 0.6 0.6 - 1.2 mg/dL 09/14/2017 5:53 AM T [facility] Sodium 138 136 - 145 mmol/L 09/14/2017 5:53 AM T [facility] Potassium 3.7 3.5 - 4.5 mmol/L 09/14/2017 5:53 AM [facility] Chloride 96(L) 98 - 107 mmol/L 09/14/2017 5:53 AM [facility] CO2 32(H) 22 - 29 mmol/L 09/14/2017 5:53 AM [facility] Glucose 136(H) 70 - 115 mg/dL 09/14/2017 5:53 AM [facility] Calcium 8.7 8.4 - 10.2 mg/dL 09/14/2017 5:53 AM [facility] Anion Gap 14 8 - 18 09/14/2017 5:53 AM [facility] BUN/Creatinine Ratio 35(H) 7 - 23 09/14/2017 5:53 AM [facility] Osmolality Calculated 291 270 - 300 mOsm/kg 09/14/2017 5:53 AM [facility] eGFR >60 >60 mL/min/1.7 3 m2 09/14/2017 5:53 AM [facility] Blood BLOOD SPECIMEN / Unknown Venipuncture / Unknown 09/14/2017 5:21 AM CDT 09/14/2017 5:30 AM CDT Veronica Costello MD LAB - CHEMISTRY ROYCE KLINE [address] [phone] * GLUCOSE - POINT OF CARE (09/14/2017 12:20 AM CDT) Glucose WB/POC 88 70 - 115 mg/dL 09/14/2017 12:35 AM T [facility] Blood BLOOD SPECIMEN / Unknown 09/14/2017 12:20 AM CDT 09/14/2017 12:35 AM CDT Narrative [facility] - 09/14/2017 12:35 AM CDT Assistant Art Director: SHEREE ?NAVEEN Jason Nash MD LAB - POINT OF CARE ORDERABLES [address] [phone] * XR ABDOMEN KUB (09/13/2017 7:16 PM [...] partially imaged. Dictated by Jay Bowens MD (residential therapist). Dr. SULLY Stringer M.D. have personally reviewed [...] partially imaged. Dictated by Jay Bowens MD (residential therapist). Dr. SULLY Stringer M.D. have personally reviewed and interpreted this examination/study. This report was electronically signed by SULLY RUANO M.D. on 09/14/2017 10:16 AM . Ivonne Rubin MD DIAGNOSTIC IMAGING O RDERABLES * GLUCOSE - POINT OF CARE (09/13/2017 6:45 PM CDT) Glucose WB/POC 91 70 - 115 mg/dL 09/13/2017 6:58 PM CDT [facility] Blood BLOOD SPECIMEN / Unknown 09/13/2017 6:45 PM CDT 09/13/2017 6:58 PM CDT Narrative [facility] - 09/13/2017 6:58 PM CDT Assistant Art Director: Ajith) ??GLENDY Jason Nash MD LAB - POINT OF CARE ORDERABLES [address] [phone] * GLUCOSE - POINT OF CARE (09/13/2017 11:14 AM CDT) Glucose WB/POC 108 70 - 115 mg/dL 09/13/2017 11:45 AM CDT [facility] Blood BLOOD SPECIMEN / Unknown 09/13/2017 11:14 AM CDT 09/13/2017 11:45 AM CDT Narrative [facility] - 09/13/2017 11:45 AM CDT Assistant Art Director: Ajith) ??GLENDY Jason Nash MD LAB - POINT OF CARE ORDERABLES [address] [phone] * GLUCOSE - POINT OF CARE (09/13/2017 7:02 AM CDT) Glucose WB/POC 101 70 - 115 mg/dL 09/13/2017 7:40 AM CDT [facility] Blood BLOOD SPECIMEN / Unknown 09/13/2017 7:02 AM CDT 09/13/2017 7:40 AM CDT Narrative [facility] - 09/13/2017 7:40 AM CDT Assistant Art Director: RIKKI ??DANIELLE Jason Nash MD LAB - POINT OF CARE ORDERABLES [address] [phone] * XR CHEST 1VW PORTABLE (09/13/2017 5:20 [...] remains enlarged. Dictated by Jay Bowens MD (residential therapist). Dr. SILAS Stringer MD have personally reviewed [...] remains enlarged. Dictated by Jay Bowens MD (residential therapist). Dr. SILAS Stringer MD have personally reviewed and interpreted this examination/study. This report was electronically signed by SILAS NGUYỄN MD on09/13/2017 11:53 AM . Veronica Costello MD DIAGNOSTIC IMAGING O RDERABLES * (ABNORMAL) RBC MORPHOLOGY (09/13/2017 5:17 AM CDT) Macrocytosis 1+(A) None 09/13/2017 6:30 AM [facility] Blood BLOOD SPECIMEN / Unknown Venipuncture / Unknown 09/13/2017 5:17 AM CDT 09/13/2017 5:23 AM CDT Veronica Costello MD LAB - HEMATOLOGY ORD ERABLES [facility] [address] [place] [address] * (ABNORMAL) CBC W AUTO DIFFERENTIAL (09/13/2017 5:17 AM CDT) Pathologist [facility] WBC 8.9 3.5 - 10.5 10? 3 /uL 09/13/2017 6:30 AM [facility] RBC 2.95(L) 4.30 - 5.70 10? 6 /uL 09/13/2017 6:30 AM [facility] Hemoglobin 8.5(L) 13.5 - 17.5 g/dL 09/13/2017 6:30 AM [facility] Hematocrit 27.6(L) 39.0 - 50.0 % 09/13/2017 6:30 AM [facility] MCV 93.6 81.0 - 97.0 fL 09/13/2017 6:30 AM [facility] MCH 28.8 28.0 - 34.0 pg 09/13/2017 6:30 AM [facility] MCHC 30.8(L) 32.0 - 36.0 g/dL 09/13/2017 6:30 AM [facility] Platelet Count 213 150 - 400 10? 3 /uL 09/13/2017 6:30 AM [facility] RDW-SD 70.6(H) 36.0 - 50.0 fL 09/13/2017 6:30 AM [facility] RDW-CV 21.5(H) 11.2 - 14.8 % 09/13/2017 6:30 AM [facility] MPV 13.0(H) 9.3 - 12.8 fL 09/13/2017 6:30 AM [facility] Neutrophils % 82.9(H) 35.0 - 70.0 % 09/13/2017 6:30 AM [facility] Lymphocytes % 10.1(L) 19.7 - 55.1 % 09/13/2017 6:30 AM [facility] Monocytes % 3.4 3.0 - 15.0 % 09/13/2017 6:30 AM [facility] Eosinophils % 3.4 0.0 - 6.0 % 09/13/2017 6:30 AM [facility] Basophil % 0.2 0.0 - 1.5 % 09/13/2017 6:30 AM [facility] Neutrophils Absolute 7.4(H) 1.6 - 7.0 10? 3 /uL 09/13/2017 6:30 AM [facility] Lymphocyte Absolute 0.9 0.8 - 2.9 10? 3 /uL 09/13/2017 6:30 AM [facility] Monocytes Absolute 0.30 0.14 - 0.66 10? 3 /uL 09/13/2017 6:30 AM [facility] Eosinophils Absolute 0.30(H) 0.00 - 0.22 10? 3 /uL 09/13/2017 6:30 AM [facility] Basophils Absolute 0.02 0.00 - 0.06 10? 3 /uL 09/13/2017 6:30 AM [facility] Reflex Status Morphology review to follow. 09/13/2017 6:30 AM [facility] Comment:This is an appended report. These results have been appended to a previously final verified report. Immature Granulocytes % 0.8 0.0 - 1.0 % 09/13/2017 6:30 AM [facility] Blood BLOOD SPECIMEN / Unknown Venipuncture / Unknown 09/13/2017 5:17 AM CDT 09/13/2017 5:23 AM T Veronica Costello MD LAB - HEMATOLOGY ORD ERABLES [address] [phone] * MAGNESIUM BLOOD (09/13/2017 5:17 AM CDT) Magnesium 1.6 1.6 - 2.6 mg/dL 09/13/2017 5:41 AM [facility] Blood BLOOD SPECIMEN / Unknown Venipuncture / Unknown 09/13/2017 5:17 AM CDT 09/13/2017 5:23 AM CDT Veronica Costello MD LAB - CHEMISTRY ROYCE KLINE [facility] Organization Address City/State/ZIP Co de Phone Number [address] [phone] * (ABNORMAL) BASIC METABOLIC PANEL (CALCIUM TOTAL) (09/13/2017 5:17 AM CDT) BUN 26 7 - 26 mg/dL 09/13/2017 5:41 AM [facility] Creatinine 0.6 0.6 - 1.2 mg/dL 09/13/2017 5:41 AM [facility] Sodium 139 136 - 145 mmol/L 09/13/2017 5:41 AM [facility] Potassium 4.6(H) 3.5 - 4.5 mmol/L 09/13/2017 5:41 AM [facility] Chloride 96(L) 98 - 107 mmol/L 09/13/2017 5:41 AM [facility] CO2 31(H) 22 - 29 mmol/L 09/13/2017 5:41 AM [facility] Glucose 96 70 - 115 mg/dL 09/13/2017 5:41 AM [facility] Calcium 9.0 8.4 - 10.2 mg/dL 09/13/2017 5:41 AM [facility] Anion Gap 17 8 - 18 09/13/2017 5:41 AM [facility] BUN/Creatinine Ratio 43(H) 7 - 23 09/13/2017 5:41 AM [facility] Osmolality Calculated 293 270 - 300 mOsm/kg 09/13/2017 5:41 AM [facility] eGFR >60 >60 mL/min/1.7 3 m2 09/13/2017 5:41 AM CDT [facility] Blood BLOOD SPECIMEN / Unknown Venipuncture / Unknown 09/13/2017 5:17 AM CDT 09/13/2017 5:23 AM CDT Veronica Costello MD LAB - CHEMISTRY ROYCE KLINE [address] [phone] * (ABNORMAL) GLUCOSE - POINT OF CARE (09/12/2017 11:49 PM CDT) Glucose WB/POC 124(H) 70 - 115 mg/dL 09/13/2017 12:02 AM CDT [facility] Blood BLOOD SPECIMEN / Unknown 09/12/2017 11:49 PM CDT 09/13/2017 12:02 AM CDT [facility] - 09/13/2017 12:02 AM CDT Assistant Art Director: TEETEE ??BETO Jason Nash MD LAB - POINT OF CARE ORDERABLES [address] [phone] * GLUCOSE - POINT OF CARE (09/12/2017 6:32 PM CDT) Glucose WB/POC 106 70 - 115 mg/dL 09/12/2017 6:58 PM CDT [facility] Blood BLOOD SPECIMEN / Unknown 09/12/2017 6:32 PM CDT 09/12/2017 6:58 PM CDT [facility] - 09/12/2017 6:58 PM CDT Assistant Art Director: REUBEN FAGAN Jason Nash MD LAB - POINT OF CARE ORDERABLES [address] [phone] * GLUCOSE - POINT OF CARE (09/12/2017 1:33 PM CDT) Pathologist [facility] Glucose WB/POC 99 70 - 115 mg/dL 09/12/2017 1:55 PM [facility] Blood BLOOD SPECIMEN / Unknown 09/12/2017 1:33 PM CDT 09/12/2017 1:55 PM CDT Narrative [facility] - 09/12/2017 1:55 PM CDT Assistant Art Director: REUBEN ?BERNARDINO Jason Nash MD LAB - POINT OF CARE ORDERABLES [facility] [address] [place] [address] * (ABNORMAL) DIFFERENTIAL MANUAL (09/12/2017 5:14 AM CDT) Pathologist [facility] WBC (corrected for NRBC) 9.5 10? 3 /uL 09/12/2017 8:05 AM [facility] Total Cell Count 100 09/13/19 18 8:05 AM [facility] Neutrophils Absolute Manual 7.70(H) 1.60 - 7.00 10? 3 /uL 09/12/2017 8:05 AM [facility] Comment:(BANDS+SEGS) x WBC = NEUT # (ANC) Lymphocyte Absolute Manual 0.57(L) 0.80 - 2.90 10? 3 /uL 09/12/2017 8:05 AM [facility] Monocytes Absolute Manual 0.86(H) 0.14 - 0.66 10? 3 /uL 09/12/2017 8:05 AM [facility] Eosinophils Absolute Manual 0.38(H) 0.00 - 0.22 10? 3 /uL 09/12/2017 8:05 AM [facility] Neutrophil % Manual 81(H) 30 - 60 % 09/12/2017 8:05 AM [facility] Lymphocyte % Manual 6(L) 20 - 45 % 09/12/2017 8:05 AM [facility] Monocytes % Manual 9 2 - 10 % 09/12/2017 8:05 AM [facility] Eosinophils % Manual 4 1 - 6 % 09/12/2017 8:05 AM [facility] Platelet Estimate Adequate Adequate 018 8:05 AM [facility] Anisocytosis 1+(A) None 09/12/2017 8:05 AM [facility] Polychromasia 1+(A) None 09/12/2017 8:05 AM [facility] Ovalocytes 1+(A) None 09/12/2017 8:05 AM [facility] Blood BLOOD SPECIMEN / Unknown Venipuncture / Unknown 09/12/2017 5:14 AM CDT 09/12/2017 5:23 AM CDT Veronica Costello MD LAB - HEMATOLOGY ORD ERABLES [facility] [address] [phone] * (ABNORMAL) CBC W AUTO DIFFERENTIAL (09/12/2017 5:14 AM CDT) WBC 9.5 3.5 - 10.5 10? 3 /uL 09/12/2017 6:51 AM [facility] RBC 2.99(L) 4.30 - 5.70 10? 6 /uL 09/12/2017 6:51 AM [facility] Hemoglobin 8.6(L) 13.5 - 17.5 g/dL 09/12/2017 6:51 AM [facility] Hematocrit 28.8(L) 39.0 - 50.0 % 09/12/2017 6:51 AM [facility] MCV 96.3 81.0 - 97.0 fL 09/12/2017 6:51 AM [facility] MCH 28.8 28.0 - 34.0 pg 09/12/2017 6:51 AM [facility] MCHC 29.9(L) 32.0 - 36.0 g/dL 09/12/2017 6:51 AM [facility] Platelet Count 185 150 - 400 10? 3 /uL 09/12/2017 6:51 AM [facility] RDW-SD 74.2(H) 36.0 - 50.0 fL 09/12/2017 6:51 AM [facility] RDW-CV 21.8(H) 11.2 - 14.8 % 09/12/2017 6:51 AM [facility] MPV 13.6(H) 9.3 - 12.8 fL 09/12/2017 6:51 AM [facility] nRBC Absolute 0.00 0 10? 3 /uL 09/12/2017 6:51 AM [facility] nRBC Auto 0.0 0 /100 WBC 09/12/2017 6:51 AM [facility] Neutrophils % 81.8(H) 35.0 - 70.0 % 09/12/2017 6:51 AM [facility] Lymphocytes % 5.8(L) 19.7 - 55.1 % 09/12/2017 6:51 AM [facility] Monocytes % 8.6 3.0 - 15.0 % 09/12/2017 6:51 AM [facility] Eosinophils % 3.4 0.0 - 6.0 % 09/12/2017 6:51 AM [facility] Basophil % 0.4 0.0 - 1.5 % 09/12/2017 6:51 AM [facility] Neutrophils Absolute 7.7(H) 1.6 - 7.0 10? 3 /uL 09/12/2017 6:51 AM [facility] Lymphocyte Absolute 0.6(L) 0.8 - 2.9 10? 3 /uL 09/12/2017 6:51 AM [facility] Monocytes Absolute 0.81(H) 0.14 - 0.66 10? 3 /uL 09/12/2017 6:51 AM [facility] Eosinophils Absolute 0.32(H) 0.00 - 0.22 10? 3 /uL 09/12/2017 6:51 AM [facility] Basophils Absolute 0.04 0.00 - 0.06 10? 3 /uL 09/12/2017 6:51 AM [facility] Immature Granulocytes % 1.1(H) 0.0 - 1.0 % 09/12/2017 6:51 AM [facility] Blood BLOOD SPECIMEN / Unknown Venipuncture / Unknown 09/12/2017 5:14 AM CDT 09/12/2017 5:23 AM CDT Veronica Costello MD LAB - HEMATOLOGY ORD ERABLES [address] [phone] * MAGNESIUM BLOOD (09/12/2017 5:14 AM CDT) Magnesium 1.6 1.6 - 2.6 mg/dL 09/12/2017 5:50 AM [facility] Blood BLOOD SPECIMEN / Unknown Venipuncture / Unknown 09/12/2017 5:14 AM CDT 09/12/2017 5:23 AM CDT Veronica Costello MD LAB - CHEMISTRY ORDE RABANGELIA Performing Organization Address [facility]/ZIP Co de Phone Number [address] [phone] * (ABNORMAL) BASIC METABOLIC PANEL (CALCIUM TOTAL) (09/12/2017 5:14 AM CDT) BUN 35(H) 7 - 26 mg/dL 09/12/2017 5:50 AM [facility] Creatinine 0.7 0.6 - 1.2 mg/dL 09/12/2017 5:50 AM [facility] Sodium 139 136 - 145 mmol/L 09/12/2017 5:50 AM [facility] Potassium 5.0(H) 3.5 - 4.5 mmol/L 09/12/2017 5:50 AM [facility] Chloride 98 98 - 107 mmol/L 09/12/2017 5:50 AM [facility] CO2 28 22 - 29 mmol/L 09/12/2017 5:50 AM [facility] Glucose 96 70 - 115 mg/dL 09/12/2017 5:50 AM [facility] Calcium 8.6 8.4 - 10.2 mg/dL 09/12/2017 5:50 AM [facility] Anion Gap 18 8 - 18 09/12/2017 5:50 AM [facility] [facility] BUN/Creatinine Ratio 50(H) 7 - 23 09/12/2017 5:50 AM CDT [facility] Osmolality Calculated 296 270 - 300 mOsm/kg 09/12/2017 5:50 AM CDT [facility] eGFR >60 >60 mL/min/1.7 3 m2 09/12/2017 5:50 AM CDT [facility] Blood BLOOD SPECIMEN / Unknown Venipuncture / Unknown 09/12/2017 5:14 AM CDT 09/12/2017 5:23 AM CDT Veronica Costello MD LAB - CHEMISTRY ROYCE KLINE Performing Organization Address [facility]/ZIP Co de Phone Number [address] [phone] * GLUCOSE - POINT OF CARE (09/12/2017 5:12 AM CDT) Glucose WB/POC 113 70 - 115 mg/dL 09/12/2017 5:44 AM CDT [facility] Blood BLOOD SPECIMEN / Unknown 09/12/2017 5:12 AM CDT 09/12/2017 5:44 AM CDT Narrative [facility] - 09/12/2017 5:44 AM CDT Assistant Art Director: CARLOS ?JANET Jason Nash MD LAB - POINT OF CARE ORDERABLES Performing Organization Address [facility] [place] [address], [facility] [phone] * GLUCOSE - POINT OF CARE (09/12/2017 1:14 AM CDT) Glucose WB/POC 114 70 - 115 mg/dL 09/12/2017 1:36 AM CDT [facility] Blood BLOOD SPECIMEN / Unknown 09/12/2017 1:14 AM CDT 09/12/2017 1:36 AM CDT Narrative [facility] - 09/12/2017 1:36 AM CDT Assistant Art Director: UWADE ?JANET Jason Nash MD LAB - POINT OF CARE ORDERABLES [address] [phone] * (ABNORMAL) GLUCOSE - POINT OF CARE (09/11/2017 5:28 PM CDT) Glucose WB/POC 150(H) 70 - 115 mg/dL 09/11/2017 5:53 PM CDT [facility] Blood BLOOD SPECIMEN / Unknown 09/11/2017 5:28 PM CDT 09/11/2017 5:53 PM CDT Narrative [facility] - 09/11/2017 5:53 PM CDT Assistant Art Director: PRINCESS CAMPBELL Jason Nash MD LAB - POINT OF CARE ORDERABLES Performing Organization Address [facility] Co de Phone Number [address] [phone] * (ABNORMAL) GLUCOSE - POINT OF CARE (09/11/2017 11:49 AM CDT) Glucose WB/POC 116(H) 70 - 115 mg/dL 09/11/2017 12:03 PM CDT [facility] Blood BLOOD SPECIMEN / Unknown 09/11/2017 11:49 AM CDT 09/11/2017 12:03 PM CDT Narrative [facility] - 09/11/2017 12:03 PM CDT Assistant Art Director: PRINCESS CAMPBELL Jason Nash MD LAB - POINT OF CARE ORDERABLES Performing Organization Address City/[facility]/ZIP Co de Phone Number [address] [phone] * TYPE + SCREEN PANEL (09/11/2017 6:50 AM CDT) Antibody Screen NEG 8 7:42 AM CDT [facility] BLOOD [facility] LAB ABO Rh A POS 09/11/2017 7:42 AM CDT [facility] LAB Blood Bank BLOOD SPECIMEN / Unknown Venipuncture / Unknown 09/11/2017 6:50 AM CDT 09/11/2017 6:59 AM CDT Veronica Costello MD LAB - BLOOD BANK ORD ERABLES [facility] BLO[facility] LAB [address] * XR CHEST 1VW (09/11/2017 6:33 [...] POINT OF CARE (09/11/2017 5:54 AM CDT) Glucose WB/POC 139(H) 70 - 115 mg/dL 09/11/2017 6:27 AM CDT [facility] Blood BLOOD SPECIMEN / Unknown 09/11/2017 5:54 AM CDT 09/11/2017 6:26 AM CDT Narrative [facility] - 09/11/2017 6:27 AM CDT Assistant Art Director: DEE ??HOA Jason Nash MD LAB - POINT OF CARE ORDERABLES Performing Organization Address City/State/[facility] Co de Phone Number [address] [phone] * (ABNORMAL) RBC MORPHOLOGY (09/11/2017 4:37 AM CDT) Platelet Estimate Adequate Adequate 018 8:36 AM CDT [facility] Anisocytosis 1+(A) None 09/11/2017 8:36 AM CDT [facility] Polychromasia Occasional( A) None 09/11/2017 8:36 AM CDT [facility] Target Cells Occasional( A) None 09/11/2017 8:36 AM [facility] Ovalocytes 1+(A) None 09/11/2017 8:36 AM [facility] Blood BLOOD SPECIMEN / Unknown Venipuncture / Unknown 09/11/2017 4:37 AM CDT 09/11/2017 4:55 AM CDT Pepeisa Machado Pravin TUCKER LAB - HEMATOLOGY ORD ERABLES [facility] [address] [phone] * (ABNORMAL) CBC W AUTO DIFFERENTIAL (09/11/2017 4:37 AM CDT) WBC 11.0(H) 3.5 - 10.5 10? 3 /uL 09/11/2017 5:35 AM [facility] RBC 3.07(L) 4.30 - 5.70 10? 6 /uL 09/11/2017 5:35 AM [facility] Hemoglobin 8.7(L) 13.5 - 17.5 g/dL 09/11/2017 5:35 AM [facility] Hematocrit 29.4(L) 39.0 - 50.0 % 09/11/2017 5:35 AM [facility] MCV 95.8 81.0 - 97.0 fL 09/11/2017 5:35 AM [facility] MCH 28.3 28.0 - 34.0 pg 09/11/2017 5:35 AM [facility] MCHC 29.6(L) 32.0 - 36.0 g/dL 09/11/2017 5:35 AM [facility] Platelet Count 234 150 - 400 10? 3 /uL 09/11/2017 5:35 AM [facility] RDW-SD 71.3(H) 36.0 - 50.0 fL 09/11/2017 5:35 AM [facility] RDW-CV 21.4(H) 11.2 - 14.8 % 09/11/2017 5:35 AM [facility] MPV 12.9(H) 9.3 - 12.8 fL 09/11/2017 5:35 AM [facility] nRBC Absolute 0.05(H) 0 10? 3 /uL 09/11/2017 5:35 AM [facility] nRBC Auto 0.4(H) 0 /100 WBC 09/11/2017 5:35 AM [facility] Comment:Confirmed by repeat analysis. Neutrophils % 82.9(H) 35.0 - 70.0 % 09/11/2017 5:35 AM [facility] Lymphocytes % 6.3(L) 19.7 - 55.1 % 09/11/2017 5:35 AM [facility] Monocytes % 7.9 3.0 - 15.0 % 09/11/2017 5:35 AM [facility] Eosinophils % 2.6 0.0 - 6.0 % 09/11/2017 5:35 AM [facility] Basophil % 0.3 0.0 - 1.5 % 09/11/2017 5:35 AM [facility] Neutrophils Absolute 9.1(H) 1.6 - 7.0 10? 3 /uL 09/11/2017 5:35 AM [facility] Lymphocyte Absolute 0.7(L) 0.8 - 2.9 10? 3 /uL 09/11/2017 5:35 AM [facility] Monocytes Absolute 0.87(H) 0.14 - 0.66 10? 3 /uL 09/11/2017 5:35 AM [facility] Eosinophils Absolute 0.29(H) 0.00 - 0.22 10? 3 /uL 09/11/2017 5:35 AM [facility] Basophils Absolute 0.03 0.00 - 0.06 10? 3 /uL 09/11/2017 5:35 AM [facility] Reflex Status Morphology review to follow. 09/11/2017 5:35 AM [facility] Immature Granulocytes % 1.6(H) 0.0 - 1.0 % 09/11/2017 5:35 AM [facility] Blood BLOOD SPECIMEN / Unknown Venipuncture / Unknown 09/11/2017 4:37 AM CDT 09/11/2017 4:55 AM T Veronica Costello MD LAB - HEMATOLOGY ORD ERABLES [address] [phone] * MAGNESIUM BLOOD (09/11/2017 4:37 AM CDT) Pathologist [facility] Magnesium 1.7 1.6 - 2.6 mg/dL 09/11/2017 5:25 AM [facility] Blood BLOOD SPECIMEN / Unknown Venipuncture / Unknown 09/11/2017 4:37 AM CDT 09/11/2017 4:55 AM CDT Veronica Costello MD LAB - CHEMISTRY ROYCE KLINE Performing Organization Address [facility]/State/ZIP Co de Phone Number [address] [phone] * (ABNORMAL) BASIC METABOLIC PANEL (CALCIUM TOTAL) (09/11/2017 4:37 AM CDT) [facility] BUN 39(H) 7 - 26 mg/dL 09/11/2017 5:25 AM [facility] Creatinine 0.8 0.6 - 1.2 mg/dL 09/11/2017 5:25 AM [facility] Sodium 142 136 - 145 mmol/L 09/11/2017 5:25 AM [facility] Potassium 5.5(H) 3.5 - 4.5 mmol/L 09/11/2017 5:25 AM [facility] Chloride 101 98 - 107 mmol/L 09/11/2017 5:25 AM [facility] CO2 25 22 - 29 mmol/L 09/11/2017 5:25 AM [facility] Glucose 123(H) 70 - 115 mg/dL 09/11/2017 5:25 AM [facility] Calcium 8.9 8.4 - 10.2 mg/dL 09/11/2017 5:25 AM [facility] Anion Gap 22(H) 8 - 18 09/11/2017 5:25 AM [facility] BUN/Creatinine Ratio 49(H) 7 - 23 09/11/2017 5:25 AM [facility]ORAT[facility] Osmolality Calculated 305(H) 270 - 300 mOsm/kg 09/11/2017 5:25 AM CDT [facility] eGFR >60 >60 mL/min/1.7 3 m2 09/11/2017 5:25 AM CDT [facility] Blood BLOOD SPECIMEN / Unknown Venipuncture / Unknown 09/11/2017 4:37 AM CDT 09/11/2017 4:55 AM CDT Veronica Costello MD LAB - CHEMISTRY ROYCE KLINE [facility] [address] [place] [address] * (ABNORMAL) B-TYPE NATRIURETIC PEPTIDE (09/11/2017 4:37 AM CDT) BNP 806(H) See Comment pg/mL 09/11/2017 5:31 AM CDT [facility] Comment: A decision threshold of 100 [...] - CHEMISTRY ROYCE KLINE Performing Organization Address [facility] de Phone Number [address] [phone] * PT-INR [facility] (09/11/2017 4:37 AM CDT) PT 14.1 12.1 - 14.8 Seconds 09/11/2017 5:15 AM CDT [facility] INR 1.1 See Comment 09/11/2017 5:15 AM CDT [facility] Comment: Suggested therapeutic range for low-intensity [...] - COAGULATION OR DERABLES Performing Organization Address [facility] de Phone Number [address] [phone] * (ABNORMAL) GLUCOSE - POINT OF CARE (09/11/2017 12:01 AM CDT) Glucose WB/POC 116(H) 70 - 115 mg/dL 09/11/2017 12:21 AM CDT [facility] Blood BLOOD SPECIMEN / Unknown 09/11/2017 12:01 AM CDT 09/11/2017 12:21 AM CDT [facility] - 09/11/2017 12:21 AM CDT Assistant Art Director: DEE CHERY Jason Nash MD LAB - POINT OF CARE ORDERABLES Performing Organization Address [facility] Co de Phone Number [address] [phone] * (ABNORMAL) GLUCOSE - POINT OF CARE (09/10/2017 6:16 PM CDT) Glucose WB/POC 157(H) 70 - 115 mg/dL 09/10/2017 6:47 PM CDT [facility] Blood BLOOD SPECIMEN / Unknown 09/10/2017 6:16 PM CDT 09/10/2017 6:46 PM CDT [facility] - 09/10/2017 6:47 PM CDT Assistant Art Director: PRINCESS ?KAR Jason Nash MD LAB - POINT OF CARE ORDERABLES Performing Organization Address [facility] Co de Phone Number [address] [phone] * (ABNORMAL) GLUCOSE - POINT OF CARE (09/10/2017 12:57 PM CDT) Glucose WB/POC 141(H) 70 - 115 mg/dL 09/10/2017 1:24 PM CDT [facility] Blood BLOOD SPECIMEN / Unknown 09/10/2017 12:57 PM CDT 09/10/2017 1:24 PM CDT [facility] - 09/10/2017 1:24 PM CDT Assistant Art Director: PRINCESS CAMPBELL Jason Nash MD LAB - POINT OF CARE ORDERABLES [facility] [address] [phone] * (ABNORMAL) BLOOD GASES ART (09/10/2017 5:57 AM CDT) pH Arterial 7.45 7.35 - 7.45 09/10/2017 6:08 AM [facility] pCO2 Arterial 44 35 - 45 mmHg 09/10/2017 6:08 AM [facility] pO2 Arterial 80 71 - 95 mmHg 09/10/2017 6:08 AM [facility] HCO3 Arterial 30.0(H) 22.0 - 26.0 mmol/L 09/10/2017 6:08 AM [facility] TCO2 Arterial 31.3(H) 25.0 - 29.0 mmol/L 09/10/2017 6:08 AM [facility] Base Excess Arterial 5.4(H) -2.0 - 2.0 mmol/L 09/10/2017 6:08 AM [facility] Hemoglobin Arterial 8.2(L) 13.5 - 17.5 g/dL 09/10/2017 6:08 AM [facility] Oxyhemoglobin Arterial 94.5(L) 95.0 - 100.0 % 09/10/2017 6:08 AM [facility] Carboxyhemoglobin 0.3 0.0 - 3.0 % 09/10/2017 6:08 AM [facility] Methemoglobin 0.7 0.0 - 2.0 % 09/10/2017 6:08 AM [facility] FI O2 Arterial 40.0 % 09/10/2017 6:08 AM [facility] Blood, arterial ARTERIAL BLOOD SPECIMEN / Unknown Arterial Puncture / Unknown 09/10/2017 5:57 AM CDT 09/10/2017 6:05 AM [facility] Delphine Waddell DATA [employer] LAB - BLOOD GASE S ORDERABLES [facility] [address] [place] [address] * (ABNORMAL) GLUCOSE - POINT OF CARE (09/10/2017 5:50 AM CDT) Glucose WB/POC 146(H) 70 - 115 mg/dL 09/10/2017 6:12 AM CDT [facility] Blood BLOOD SPECIMEN / Unknown 09/10/2017 5:50 AM CDT 09/10/2017 6:11 AM CDT Narrative [facility] - 09/10/2017 6:12 AM CDT Assistant Art Director: DEE ??HOA Jason Nash MD LAB - POINT OF CARE ORDERABLES Performing Organization Address City/[facility]/ZIP Co de Phone Number [address] [phone] * PTT [facility] (09/10/2017 5:49 AM CDT) APTT 29.7 23.0 - 38.4 Seconds 09/10/2017 5:58 AM CDT [facility] Comment: Suggested therapeutic range for full dose I.V. heparin therapy for venous thromboembolism is 66.0-91.0 seconds. Blood BLOOD SPECIMEN / Unknown Lab Venipuncture / Unknown 09/10/2017 5:49 AM CDT 09/10/2017 5:50 AM CDT Yogesh Duncan MD LAB - COAGULATION OR DERABLES Performing Organization Address City/[facility]/ZIP Co de Phone Number [address] [phone] * (ABNORMAL) RBC MORPHOLOGY (09/10/2017 5:04 AM CDT) Platelet Estimate Adequate Adequate 09/10/2017 6:51 AM CDT [facility] Anisocytosis 1+(A) None 09/10/2017 6:51 AM CDT [facility] Stomatocytes 2+(A) None 09/10/2017 6:51 AM CDT [facility] Blood BLOOD SPECIMEN / Unknown Venipuncture / Unknown 09/10/2017 5:04 AM CDT 09/10/2017 5:08 AM CDT Jason Nash MD LAB - HEMATOLOGY ORD SP [address] [phone] * (ABNORMAL) BASIC METABOLIC PANEL (CALCIUM TOTAL) (09/10/2017 5:04 AM CDT) BUN 36(H) 7 - 26 mg/dL 09/10/2017 5:35 AM [facility] Creatinine 0.7 0.6 - 1.2 mg/dL 09/10/2017 5:35 AM [facility] Sodium 141 136 - 145 mmol/L 09/10/2017 5:35 AM [facility] Potassium 4.8(H) 3.5 - 4.5 mmol/L 09/10/2017 5:35 AM [facility] Chloride 103 98 - 107 mmol/L 09/10/2017 5:35 AM [facility] CO2 28 22 - 29 mmol/L 09/10/2017 5:35 AM [facility] Glucose 129(H) 70 - 115 mg/dL 09/10/2017 5:35 AM [facility] Calcium 8.6 8.4 - 10.2 mg/dL 09/10/2017 5:35 AM [facility] Anion Gap 15 8 - 18 09/10/2017 5:35 AM [facility] BUN/Creatinine Ratio >50(H) 7 - 23 09/10/2017 5:35 AM [facility] Osmolality Calculated 302(H) 270 - 300 mOsm/kg 09/10/2017 5:35 AM [facility] Blood BLOOD SPECIMEN / Unknown Venipuncture / Unknown 09/10/2017 5:04 AM CDT 09/10/2017 5:08 AM CDT Jason Nash MD LAB - CHEMISTRY ROYCE KLINE [address] [phone] * (ABNORMAL) CBC W AUTO DIFFERENTIAL (09/10/2017 5:04 AM CDT) WBC 11.0(H) 3.5 - 10.5 10? 3 /uL 09/10/2017 5:19 AM [facility] Comment:The WBC count is cor rected by the instrument for nRBC's RBC 2.86(L) 4.30 - 5.70 10? 6 /uL 09/10/2017 5:19 AM [facility] Hemoglobin 8.0(L) 13.5 - 17.5 g/dL 09/10/2017 5:19 AM [facility] Hematocrit 27.1(L) 39.0 - 50.0 % 09/10/2017 5:19 AM [facility] MCV 94.8 81.0 - 97.0 fL 09/10/2017 5:19 AM [facility] MCH 28.0 28.0 - 34.0 pg 09/10/2017 5:19 AM [facility] MCHC 29.5(L) 32.0 - 36.0 g/dL 09/10/2017 5:19 AM [facility] Platelet Count 249 150 - 400 10? 3 /uL 09/10/2017 5:19 AM [facility] RDW-SD 69.0(H) 36.0 - 50.0 fL 09/10/2017 5:19 AM [facility] RDW-CV 21.1(H) 11.2 - 14.8 % 09/10/2017 5:19 AM [facility] MPV 12.4 9.3 - 12.8 fL 09/10/2017 5:19 AM [facility] nRBC Absolute 0.14(H) 0 10? 3 /uL 09/10/2017 5:19 AM [facility] nRBC Auto 1.2(H) 0 /100 WBC 09/10/2017 5:19 AM [facility] Neutrophils % 83.6(H) 35.0 - 70.0 % 09/10/2017 5:19 AM [facility] Lymphocytes % 4.9(L) 19.7 - 55.1 % 09/10/2017 5:19 AM [facility] Monocytes % 9.6 3.0 - 15.0 % 09/10/2017 5:19 AM T [facility] LABORATORY [facility] Eosinophils % 1.4 0.0 - 6.0 % 09/10/2017 5:19 AM [facility] Basophil % 0.5 0.0 - 1.5 % 09/10/2017 5:19 AM [facility] Neutrophils Absolute 9.2(H) 1.6 - 7.0 10? 3 /uL 09/10/2017 5:19 AM [facility] Lymphocyte Absolute 0.5(L) 0.8 - 2.9 10? 3 /uL 09/10/2017 5:19 AM [facility] Monocytes Absolute 1.05(H) 0.14 - 0.66 10? 3 /uL 09/10/2017 5:19 AM [facility] Eosinophils Absolute 0.15 0.00 - 0.22 10? 3 /uL 09/10/2017 5:19 AM [facility] Basophils Absolute 0.05 0.00 - 0.06 10? 3 /uL 09/10/2017 5:19 AM [facility] Immature Granulocytes % 1.5(H) 0.0 - 1.0 % 09/10/2017 5:19 AM [facility] Blood BLOOD SPECIMEN / Unknown Venipuncture / Unknown 09/10/2017 5:04 AM CDT 09/10/2017 5:08 AM CDT Jason Nash MD LAB - HEMATOLOGY ORD SP [facility] [address] [phone] * (ABNORMAL) GLUCOSE ACCUCHECK (09/09/2017 11:31 PM CDT) Glucose, Fingerstick 127(H) 70-115mg/d L mg/dL [facility] (BEAKER) Comment: Insulin Protocol Assistant Art Director: DEE ??HOA 09/09/2017 11:3 1 PM CDT Jason Nash MD LAB - CHEMISTRY ROYCE KLINE [facility]) * GLUCOSE ACCUCHECK (09/09/2017 5:10 PM CDT) Glucose, Fingerstick 99 70-115mg/d L mg/dL [facility] ([facility]) Comment:Assistant Art Director: CHRIS GUILLAUME 09/09/2017 5:10 PM CDT Jason Nash MD LAB - CHEMISTRY ORDMarj KLINE Performing Organization Address City/[facility]/ZIP Co de Phone Number [facility] ([facility]) * CULTURE AEROBIC (09/09/2017 3:41 PM CDT) Culture Aerobic Light Growth S [facility] Comment:Normal oropharyngeal robert Gram Stain light White Blood Cells [facility] Gram Stain No Organism Seen [facility] Bronchial Washings SPECIMEN FROM LUNG OBTAINED BY BRONCHIAL WASHING PROCEDURE / Unknown 09/09/2017 3:41 PM CDT 09/09/2017 3:47 PM CDT Narrative [facility] - 09/11/2017 6:41 AM CDT Specimen Type->Bronchial Washings Resulting Lab: ?? [facility] MICROBIOLOGY [address] [place] [address] PH: [phone] Jason Nash MD LAB - MICROBIOLOGY O RDERABLES Performing Organization Address [facility] Co de Phone Number [facility] [address] [phone] * XR CHEST 1VW PORTABLE (09/09/2017 3:31 PM CDT) Anatomical Region Laterality Modality Chest Other Impressions 09/09/2017 4:31 PM CDT IMPRESSION: An endotracheal tube terminates at the mid thoracic trachea. A feeding tube extends to the stomach and beyond the [id number]. A left pleural pigtail catheter is partially imaged. Small right pleural effusion is unchanged. Left lower lobe opacity has decreased representing atelectasis versus airspace disease with possible persistent pleural effusion. Interstitial opacities are unchanged representing pulmonary edema and/or pneumonia. No pneumothorax is seen. The cardiac silhouette is partially obscured. The aorta is atherosclerotic. Report dictated by Rohan Hopkins M.D. (residential therapist). IDr. VIBHA M.D. have personally reviewed and [...] extends to the stomach and beyond the [id number]. A left pleuralpigtail catheter is partially imaged. Small right pleural effusion is unchanged. Left lower lobe opacity hasdecreased representing atelectasis versus airspace disease with possiblepersistent pleural effusion. Interstitial opacities are unchangedrepresenting pulmonary edema and/or pneumonia. No pneumothorax is seen. The cardiac silhouette is partiallyobscured. The aorta is atherosclerotic. Report dictated by Rohan Hopkins M.D. (residential therapist). Dr. VIBHA Stringer M.D. have personally reviewed and interpreted thisexamination/study. This report was electronically signed by VIBHA PHELPS M.D. on 09/09/20174:31 PM . Jason Nash MD DIAGNOSTIC IMAGING O RDERABLES * GLUCOSE ACCUCHECK (09/09/2017 11:57 AM CDT) Glucose, Fingerstick 79 70-115mg/d L mg/dL [facility]) Comment:Assistant Art Director: CHELA PATTERSON 09/09/2017 11:5 7 AM CDT Jason Nash MD LAB - CHEMISTRY ROYCE KLINE [facility] Organization Address City/State/ZIP Co de Phone Number [place] [place] ([place]) * (ABNORMAL) BASIC METABOLIC PANEL (CALCIUM TOTAL) (09/09/2017 10:31 AM CDT) BUN 36(H) 7 - 26 mg/dL [facility] Creatinine 0.8 0.6 - 1.2 mg/dL [facility] Sodium 142 136 - 145 mmol/L [facility] Potassium 4.7(H) 3.5 - 4.5 mmol/L [facility] Chloride 105 98 - 107 mmol/L [facility] CO2 26 22 - 29 mmol/L [facility] Glucose 80 70 - 115 mg/dL [facility] Calcium 8.5 8.4 - 10.2 mg/dL [facility] Anion Gap 16 8 - 18 [facility] BUN/Creatinine Ratio 45(H) 7 - 23 [facility] Osmolality Calculated 301(H) 270 - 300 mOsm/kg [facility] eGFR >60 >60 mL/min/1.7 3 m2 [facility] Blood specimen (specimen) BLOOD SPECIMEN / Unknown 09/09/2017 10:31 AM CDT 09/09/2017 10:40 AM CDT Jason Nash MD LAB - CHEMISTRY ROYCE [facility] Organization Address City/State/[facility] Co de Phone Number [address] [phone] * (ABNORMAL) BLOOD GASES ART (09/09/2017 8:41 AM CDT) pH Arterial 7.51(H) 7.35 - 7.45 [facility] pCO2 Arterial 38 35 - 45 mmHg [facility] pO2 Arterial 274(H) 71 - 95 mmHg [facility] HCO3 Arterial 29.2(H) 22.0 - 26.0 mmol/L [facility] TCO2 Arterial 30.4(H) 25.0 - 29.0 mmol/L [facility] Base Excess Arterial 5.7(H) -2.0 - 2.0 mmol/L [facility] Hemoglobin Arterial 7.6(L) 13.5 - 17.5 g/dL [facility] Oxyhemoglobin Arterial 98.7 95.0 - 100.0 % [facility] Carboxyhemoglobin 0.3 0.0 - 3.0 % [facility] Methemoglobin 0.5 0.0 - 2.0 % [facility] FI O2 Arterial 100.0 % [facility] Blood specimen (specimen) BLOOD SPECIMEN / Unknown 09/09/2017 8:41 AM CDT 09/09/2017 8:45 AM CDT Narrative [facility] - 09/09/2017 8:47 AM CDT FIO2->100 Jason Nash MD LAB - BLOOD GASES OR DERABLES [address] [phone] * (ABNORMAL) GLUCOSE ACCUCHECK (09/09/2017 6:15 AM CDT) Glucose, Fingerstick 133(H) 70-115mg/d L mg/dL [facility] Comment:Assistant Art Director: CARLOS CARTAGENA 09/09/2017 6:15 AM CDT Jason Nash MD LAB - CHEMISTRY ORDE RAISA Performing Organization Address [facility] Co de Phone Number [facility] * XR CHEST 1VW PORTABLE (09/09/2017 4:23 AM CDT) Anatomical Region Laterality Modality Chest Other Impressions 09/09/2017 2:02 PM CDT IMPRESSION: There is interval intubation with tip of endotracheal tube terminating at the mid thoracic trachea. A feeding tube extends to the stomach and beyond the [id number]. A left pleural pigtail catheter is unchanged in position. Small right pleural effusion is unchanged. There is left lower lobe atelectasis versus airspace disease with possible persistent pleural effusion. Interstitial opacities have decreased representing pulmonary edema and/or pneumonia. No pneumothorax is seen. The cardiac silhouette is partially obscured. The aorta is atherosclerotic. Report dictated by Rohan Hopkins M.D. (residential therapist). I, Dr. VIBHA PHELPS M.D. have personally [...] tube extends to the stomach and beyondthe [id number]. A left pleural pigtail catheter is unchanged inposition. Small right pleural effusion is unchanged. There is left lower lobeatelectasis versus airspace disease with possible persistent pleuraleffusion. Interstitial opacities have decreased representing pulmonaryedema and/or pneumonia. No pneumothorax is seen. The cardiac silhouette is partially obscured. The aorta isatherosclerotic. Report dictated by Rohan Hopkins M.D. (residential therapist). I, Dr. VIBHA PHELPS M.D. have personally reviewed and interpreted thisexamination/study. This report was electronically signed by VIBHA PHELPS M.D. on 09/09/20172:02 PM . Delphine Waddell DATA QUALITY CONSULTANT-RICE D[facility]ER DIAGNOSTIC IMAGI NG ORDERABLES * (ABNORMAL) DIFFERENTIAL MANUAL (09/09/2017 4:22 AM CDT) WBC (corrected for NRBC) 18.9 10? 3 /uL [facility] Total Cell Count 100 [facility] Neutrophils Absolute Manual 14.55(H) 1.60 - 7.00 10? 3 /uL [facility] Comment:(BANDS+SEGS) x WBC = NEUT # (ANC) Lymphocyte Absolute Manual 1.70 0.80 - 2.90 10? 3 /uL [facility] Monocytes Absolute Manual 2.46(H) 0.14 - 0.66 10? 3 /uL [facility] Neutrophil % Manual 77(H) 30 - 60 % [facility] Lymphocyte % Manual 9(L) 20 - 45 % [facility] Monocytes % Manual 13(H) 2 - 10 % [facility] Metamyelocyte % Manual 1(H) 0 % [facility] Platelet Estimate Increased (A) Adequate [facility] Anisocytosis Occasiona l(A) None [facility] Blood specimen (specimen) BLOOD SPECIMEN / Unknown 09/09/2017 4:22 AM CDT 09/09/2017 4:27 AM CDT Jason Nash MD LAB - HEMATOLOGY ORD ERABLES [facility] [address] [phone] * (ABNORMAL) CBC W AUTO DIFFERENTIAL (09/09/2017 4:22 AM CDT) WBC 18.9(H) 3.5 - 10.5 10? 3 /uL [facility] Comment: The WBC count is corrected by the instrument for nRBC's All CBC parameters have been checked. RBC 3.27(L) 4.30 - 5.70 10? 6 /uL [facility] Hemoglobin 9.1(L) 13.5 - 17.5 g/dL [facility] Hematocrit 31.2(L) 39.0 - 50.0 % [facility] MCV 95.4 81.0 - 97.0 fL [facility] MCH 27.8(L) 28.0 - 34.0 pg [facility] MCHC 29.2(L) 32.0 - 36.0 g/dL [facility] Platelet Count 426(H) 150 - 400 10? 3 /uL [facility] RDW-SD 66.4(H) 36.0 - 50.0 fL [facility] RDW-CV 20.4(H) 11.2 - 14.8 % [facility] MPV 12.8 9.3 - 12.8 fL [facility] nRBC Absolute 0.45(H) 0 10? 3 /uL [facility] nRBC Auto 2.4(H) 0 /100 WBC [facility] Blood specimen (specimen) BLOOD SPECIMEN / Unknown 09/09/2017 4:22 AM CDT 09/09/2017 4:27 AM CDT Jason Nash MD LAB - HEMATOLOGY ORD ERABLES Performing Organization Address [facility]/ZIP Co de Phone Number [address] [phone] * (ABNORMAL) PT-INR [facility] (09/09/2017 4:22 AM CDT) PT 15.8(H) 12.1 - 14.8 Seconds [facility] INR 1.3 See Comment [facility] Comment: Suggested therapeutic range for low-intensity coumadin therapy for venous thromboembolism prophylaxis is an INR of 2.0-3.0. ??For high risk patients (Mitral Valve Prosthesis, Atrial Fibrillation, history of TIA/stroke), suggested prophylactic therapeutic range is an INR of 2.5-3.5. Blood specimen (specimen) BLOOD SPECIMEN / Unknown 09/09/2017 4:22 AM CDT 09/09/2017 4:27 AM CDT Narrative [facility] - 09/09/2017 4:43 AM CDT Is patient on Heparin, Argatroban or Dabigatran?->N Jason Nash MD LAB - COAGULATION OR DERABLES Performing Organization Address [facility] Co de Phone Number [address] [phone] * (ABNORMAL) BLOOD GASES ART (09/09/2017 4:22 AM CDT) pH Arterial 7.41 7.35 - 7.45 [facility] pCO2 Arterial 45 35 - 45 mmHg [facility] pO2 Arterial 65(L) 71 - 95 mmHg [facility] HCO3 Arterial 27.4(H) 22.0 - 26.0 mmol/L [facility] TCO2 Arterial 28.8 25.0 - 29.0 mmol/L [facility] Base Excess Arterial 2.4(H) -2.0 - 2.0 mmol/L [facility] Hemoglobin Arterial 8.6(L) 13.5 - 17.5 g/dL [facility] Oxyhemoglobin Arterial 90.7(L) 95.0 - 100.0 % [facility] Carboxyhemoglobin 0.3 0.0 - 3.0 % [facility] Methemoglobin 0.3 0.0 - 2.0 % [facility] FI O2 Arterial 100.0 % [facility] Blood specimen (specimen) BLOOD SPECIMEN / Unknown 09/09/2017 4:22 AM CDT 09/09/2017 4:45 AM CDT Delphine Waddell DATA QUALITY CONSULTANTMIRANDA LAB - BLOOD GASE S ORDERABLES [facility] [address] [phone] * (ABNORMAL) BASIC METABOLIC PANEL (CALCIUM TOTAL) (09/09/2017 4:22 AM CDT) BUN 35(H) 7 - 26 mg/dL [facility] Creatinine 0.8 0.6 - 1.2 mg/dL [facility] Sodium 140 136 - 145 mmol/L [facility] Potassium 5.7(H) 3.5 - 4.5 mmol/L [facility] Chloride 104 98 - 107 mmol/L [facility] CO2 24 22 - 29 mmol/L [facility] Glucose 238(H) 70 - 115 mg/dL [facility] Calcium 8.9 8.4 - 10.2 mg/dL [facility] Anion Gap 18 8 - 18 [facility] BUN/Creatinine Ratio 44(H) 7 - 23 [facility] Osmolality Calculated 306(H) 270 - 300 mOsm/kg [facility] eGFR >60 >60 mL/min/1.7 3 m2 [facility] Blood specimen (specimen) BLOOD SPECIMEN / Unknown 09/09/2017 4:22 AM CDT 09/09/2017 4:27 AM CDT Jason Nash MD LAB - CHEMISTRY ORDMarj KLINE [facility] [address] [phone] * CBC W AUTO DIFFERENTIAL (09/09/2017 4:22 AM CDT) Blood specimen (specimen) BLOOD SPECIMEN / Unknown 09/09/2017 4:22 AM CDT Narrative [facility] - 09/09/2017 5:12 AM CDT The following orders were created for panel order CBC w Differential. Procedure ? Abnormality ? Status ? --------- ? ------ ? CBC WITH DIFFERENTIAL[[id number]] ? Abnormal ?Final result ? MANUAL DIFFERENTIAL[[id number]] ? Abnormal ?Final result ? Please view results for these tests on the individual orders. Jason Nash MD [facility] Performing Organization Address City/State/[facility] Co de Phone Number [facility] [address] [place] [address], [facility] * XR CHEST 1VW PORTABLE (09/09/2017 3:48 AM CDT) Anatomical Region Laterality Modality Chest Other Impressions 09/09/2017 1:59 PM CDT IMPRESSION: A feeding tube extends to the stomach and beyond the [id number]-mw-[id number]. A left pleural pigtail catheter is unchanged [...] atherosclerotic. Report dictated by Rohan Hopkins MD (residential therapist). Dr. VIBHA Stringer M.D. have personally reviewed [...] extends to the stomach and beyond the ncyam-qi-itdx. A leftpleural pigtail catheter is unchanged in [...] atherosclerotic. Report dictated by Rohan Hopkins MD (residential therapist). Dr. VIBHA Stringer M.D. have personally reviewed and interpreted thisexamination/study. This report was electronically signed by VIBHA PHELPS M.D. on 09/09/20171:59 PM . Jason Nash MD DIAGNOSTIC IMAGING O RDERABLES * (ABNORMAL) GLUCOSE ACCUCHECK (09/09/2017 12:56 AM CDT) Glucose, Fingerstick 136(H) 70-115mg/d L mg/dL [facility] RALS (BEAKER) Comment:Assistant Art Director: CARLOS CARTAGENA 09/09/2017 12:5 6 AM CDT Jason Nash MD LAB - CHEMISTRY ROYCE KLINE Performing Organization Address [facility]/ZIP Co de Phone Number [facility] ([facility]) * (ABNORMAL) GLUCOSE ACCUCHECK (09/08/2017 6:08 PM CDT) Glucose, Fingerstick 130(H) 70-115mg/d L mg/dL [facility] ([facility]) Comment:Assistant Art Director: MARCELL ST CROOKS 09/08/2017 6:08 PM CDT Jason Nash MD LAB - CHEMISTRY ROYCE KLINE Performing Organization Address [facility] Co de Phone Number [facility] ([facility]) * (ABNORMAL) GLUCOSE ACCUCHECK (09/08/2017 12:39 PM CDT) Glucose, Fingerstick 120(H) 70-115mg/d L mg/dL [facility] ([facility]) Comment:Assistant Art Director: MICHELA PENNINGTON 09/08/2017 12:3 9 PM CDT Jason Nash MD LAB - CHEMISTRY ROYCE KLINE Performing Organization Address [facility] Co de Phone Number [facility] ([facility]) * LD BODY FLUID ([facility] ONLY) (09/08/2017 12:35 PM CDT) LD Fluid 172 Not Established For Fluids Units/L [facility] Comment:The reference range and other method performance specifications have not been established for this fluid. The test result must be integrated into the clinical context for interpretation. Pleural fluid specimen (specimen) PLEURAL FLUID / Unknown 09/08/2017 12:35 PM CDT 09/08/2017 12:48 PM CDT Jason Nash MD LAB - BODY FLUID ORD SP Performing Organization Address City/[facility]/ZIP Co de Phone Number [address] [phone] * GLUCOSE BODY FLUID ([facility] ONLY) (09/08/2017 12:35 PM CDT) Glucose Fluid 145 Not Established For Fluids mg/dL [facility] Comment:The reference range and other method performance specifications have not been established for this fluid. The test result must be integrated into the clinical context for interpretation. Pleural fluid specimen (specimen) PLEURAL FLUID / Unknown 09/08/2017 12:35 PM CDT 09/08/2017 12:48 PM CDT Jason Nash MD LAB - BODY FLUID ORD ERABLES Performing Organization Address [facility]/ZIP Co de Phone Number [address] [phone] * PROTEIN FLUID (09/08/2017 12:35 PM CDT) Protein Fluid 1.5 Not Established For Fluids g/dL [facility] Comment:The reference range and other method performance specifications have not been established for this fluid. The test result must be integrated into the clinical context for interpretation. Pleural fluid specimen (specimen) PLEURAL FLUID / Unknown 09/08/2017 12:35 PM CDT 09/08/2017 12:48 PM CDT Jason Nash MD LAB - BODY FLUID ORD ERABLES Performing Organization Address [facility] Co de Phone Number [address] [phone] * (ABNORMAL) CELL COUNT FLUID (09/08/2017 12:35 PM CDT) Color Fluid [place](A) Colorless, Straw [facility] Clarity Fluid Slighty Cloudy(A) Clear [facility] Volume Fluid 1.0 mL [facility] WBC Fluid 161 Reference Range Not Established /uL [facility] RBC Fluid 11,000 Reference Range Not Established /uL [facility] Differential Manual Differential to follow. [facility] Pleural fluid specimen (specimen) PLEURAL FLUID / Unknown 09/08/2017 12:35 PM CDT 09/08/2017 12:48 PM CDT [facility] - 09/08/2017 1:12 PM CDT No established reference ranges for WBC and RBC body fluid count. Jason Nash MD LAB - BODY FLUID ORD ERABLES Performing Organization Address [facility] de Phone Number [address] [phone] * DIFFERENTIAL MANUAL FLUID (09/08/2017 12:35 PM CDT) Segs % Fluid 60 % [facility] Lymphocytes % Fluid 37 % [facility] Monocytes % Fluid 3 % [facility] Pleural fluid specimen (specimen) PLEURAL FLUID / Unknown 09/08/2017 12:35 PM CDT 09/08/2017 12:48 PM CDT [facility] - 09/08/2017 2:08 PM CDT No reference ranges established for body fluid differential. Jason Nash MD LAB - BODY FLUID ORD SP Performing Organization Address [facility] Co de Phone Number [address] [phone] * CELL COUNT W DIFFERENTIAL FLUID (09/08/2017 12:35 PM CDT) Pleural fluid specimen (specimen) PLEURAL FLUID / Unknown 09/08/2017 12:35 PM CDT [facility] - 09/08/2017 2:08 PM CDT The following orders were created for panel order Body fluid cell count with diff. Procedure ? Abnormality ? Status ? --------- ? ------ ? Body fluid cell count wit...[[id number]] ??Abnormal ?Final result ? MANUAL DIFFERENTIAL FLUID[[id number]] ? Final result ? Please view results for these tests on the individual orders. Jason Nash MD LAB - BODY FLUID [place]Y [place] Performing Organization Address [facility] de Phone Number [facility] [address] * PH FLUID (09/08/2017 12:33 PM CDT) pH Fluid 7.610 Not Established For Fluids [facility] Comment:The reference range and other method performance specifications have not been established for this fluid. The test result must be integrated into the clinical context for interpretation. Fluid specimen (specimen) PLEURAL FLUID / Unknown 09/08/2017 12:33 PM CDT 09/08/2017 12:47 PM CDT Jason Nash MD LAB - BODY FLUID [place] Performing Organization Address [facility] de Phone Number [facility] [address] [place] [address] * CULTURE AEROBIC (09/08/2017 12:32 PM CDT) Culture Aerobic No Growth [facility] Gram Stain light Polymorphonuclear Cells [facility] Gram Stain No Organism Seen [facility] Pleural fluid specimen (specimen) PLEURAL FLUID / Unknown 09/08/2017 12:32 PM CDT 09/08/2017 12:48 PM CDT Narrative [facility] - 09/15/2017 11:53 AM CDT Specimen Type->Pleural Fluid Resulting Lab: ?? [facility] [address] [place] [address] PH: [phone] Jason Nash MD LAB - MICROBIOLOGY O RDSP [address] [phone] * XR CHEST 1VW PORTABLE (09/08/2017 12:23 PM CDT) Anatomical Region Laterality Modality Chest Other Impressions 09/09/2017 8:58 AM CDT IMPRESSION: A feeding tube extends to the stomach and beyond the uppdh-[id number]. A tube projecting over the mediastinum to [...] partially obscured. Dictated by Omi Silverio MD (residential therapist). I, Dr. SILAS NGUYỄN MD have personally [...] extends to the stomach and beyond the jmtgp-qh-xcch. A tubeprojecting over the mediastinum to the [...] partially obscured. Dictated by Omi Silverio MD (residential therapist). IDr. SILAS MD have personally reviewed and [...] the esophagus and tip is off the bhjvs-nj-vvnx. Small right and moderate to large left pleural effusions with associated atelectasis and/or airspace disease is increase on the left. There are bilateral interstitial opacities likely representing pulmonary edema or pneumonia. No pneumothorax is identified. The cardiac silhouette is partially obscured. Report dictated by oRhan Hopkins M.D. (residential therapist). I, Dr. VIBHA PHELPS M.D. have personally [...] of the esophagusand tip is off the wsaxl-kf-xags. Small right and moderate to large left pleural effusions with associatedatelectasis and/or airspace disease is increase on the left. There arebilateral interstitial opacities likely representing pulmonary edema orpneumonia. No pneumothorax is identified. The cardiac silhouette is partially obscured. Report dictated by Rohan Hopkins M.D. (residential therapist). I, Dr. VIBHA PHELPS M.D. have personally reviewed and interpreted thisexamination/study. This report was electronically signed by VIBHA PHELPS M.D. on 09/08/201712:19 PM . Jason Nash MD DIAGNOSTIC IMAGING O RDERABLES * (ABNORMAL) GLUCOSE ACCUCHECK (09/08/2017 5:37 AM CDT) Glucose, Fingerstick 149(H) 70-115mg/d L mg/dL [facility] RALS (BEAKER) Comment:Assistant Art Director: WESTON COSTA 09/08/2017 5:37 AM CDT Jason Nash MD LAB - CHEMISTRY ROYCE KLINE Performing Organization Address [facility] Co de Phone Number [facility] RALS (BEAKER) * (ABNORMAL) GLUCOSE ACCUCHECK (09/08/2017 12:27 AM CDT) Glucose, Fingerstick 143(H) 70-115mg/d L mg/dL [facility] RALS (BEAKER) Comment:Assistant Art Director: WESTON COSTA 09/08/2017 12:2 7 AM CDT Jason Nash MD LAB - CHEMISTRY ROYCE KLINE Performing Organization Address [facility]/State/ZIP Co de Phone Number [facility] RALS (BEAKER) * (ABNORMAL) GLUCOSE ACCUCHECK (09/07/2017 4:22 PM CDT) Glucose, Fingerstick 150(H) 70-115mg/d L mg/dL [facility] RALS (BEAKER) Comment:Assistant Art Director: MARCELL RIVERA 09/07/2017 4:22 PM CDT Jason Nash MD LAB - CHEMISTRY ROYCE KLINE [facility] Organization Address City/State/ZIP Co de Phone [...] unchanged. Dictated by Keaton Gómez MD (residential therapist). I, Dr. Jason NAIK M.D. have personally [...] unchanged. Dictated by Keaton Gómez MD (residential therapist). I, Dr. Jason NAIK M.D. have personally reviewed and interpreted thisexamination/study. This report was electronically signed by Jason NAIK M.D. on09/07/2017 3:14 PM . Jason Nash MD CT ORDERABLES * (ABNORMAL) GLUCOSE ACCUCHECK (09/07/2017 11:43 AM CDT) Glucose, Fingerstick 140(H) 70-115mg/d L mg/dL [facility] (BEAKER) Comment:Assistant Art Director: MARCELL SOLONIE 09/07/2017 11:4 3 AM CDT Jason Nash MD LAB - CHEMISTRY ROYCE KLINE Performing Organization Address City/[facility]/ZIP Co de Phone Number Jeannette CHAPMAN ([place]) * (ABNORMAL) GLUCOSE ACCUCHECK (09/07/2017 5:29 AM CDT) Glucose, Fingerstick 171(H) 70-115mg/d L mg/dL Jeannette CHAPMAN ([place]) Comment:Assistant Art Director: FAISAL MAO 09/07/2017 5:29 AM CDT Jason Nash MD LAB - CHEMISTRY ROYCE KLINE Performing Organization Address [facility] Co de Phone Number AMINA CHAPMAN ([place]) * XR CHEST 1VW PORTABLE [...] the esophagus and tip is off the rypzu-mg-yrgk. Small right and moderate left pleural effusions with associated atelectasis and/or airspace disease is unchanged. There are bilateral interstitial and airspace opacities likely representing pulmonary edema or pneumonia. No pneumothorax is identified. The cardiac silhouette is partly obscured. Report dictated by Rohan Hopkins M.D. (residential therapist). I, Dr. SULLY RUANO M.D. have personally [...] the esophagus and tip is off the exbcr-zc-rdnc. Small right and moderate left pleural effusions with associatedatelectasis and/or airspace disease is unchanged. There are bilateralinterstitial and airspace opacities likely representing pulmonary edema orpneumonia. No pneumothorax is identified. The cardiac silhouette is partly obscured. Report dictated by Rohan Hopkins M.D. (residential therapist). I, Dr. SULLY RUANO M.D. have personally reviewed and interpretedthis examination/study. This report was electronically signed by SULLY RUANO M.D. on09/07/2017 12:35 PM . Jason Nash MD DIAGNOSTIC IMAGING O RDERABLES * PTT [facility] (09/07/2017 4:28 AM CDT) APTT 32.8 23.0 - 38.4 Seconds [facility] Comment:Suggested therapeuti c range for full dose I.V. heparin therapy for venous thromboembolism is 66.0-91.0 seconds. Blood specimen (specimen) BLOOD SPECIMEN / Unknown 09/07/2017 4:28 AM CDT 09/07/2017 4:35 AM CDT Narrative [facility] - 09/07/2017 4:59 AM CDT Please ensure that the aPTT specimen is received in the clinical lab within 1 hour of collection if it is used for therapeutic heparin monitoring. Processing of heparinized specimens older than 1 hour may result in inaccurate test results. Is patient on Heparin, Argatroban or Dabigatran?->N Jason Nash MD LAB - COAGULATION OR DERABLES [address] [phone] * (ABNORMAL) PT-INR [facility] (09/07/2017 4:28 AM CDT) PT 18.8(H) 12.1 - 14.8 Seconds [facility] INR 1.6 See Comment [facility] Comment: Suggested therapeutic range for low-intensity coumadin therapy for venous thromboembolism prophylaxis is an INR of 2.0-3.0. ??For high risk patients (Mitral Valve Prosthesis, Atrial Fibrillation, history of TIA/stroke), suggested prophylactic therapeutic range is an INR of 2.5-3.5. Blood specimen (specimen) BLOOD SPECIMEN / Unknown 09/07/2017 4:28 AM CDT 09/07/2017 4:35 AM CDT Narrative [facility] - 09/07/2017 4:58 AM CDT Is patient on Heparin, Argatroban or Dabigatran?->N Jason Nash MD LAB - COAGULATION OR DERABLES Performing Organization Address City/State/[facility] de Phone Number [address] [phone] * PROCALCITONIN LEVEL (09/07/2017 4:28 AM CDT) Procalcitonin 0.47 [facility] Blood specimen (specimen) BLOOD SPECIMEN / Unknown 09/07/2017 4:28 AM CDT 09/07/2017 4:35 AM CDT Narrative [facility] - 09/07/2017 5:53 AM CDT The change [...] Change in Procalcitonin Calculator is available at [email or web address] ?? If clinical picture has not improved and PCT remains high, reevaluate and consider treatment failure or other causes. Jason Nash MD LAB - CHEMISTRY ROYCE KLINE [facility] [address] [place] [address] * (ABNORMAL) BASIC METABOLIC PANEL (CALCIUM TOTAL) (09/07/2017 4:28 AM CDT) BUN 24 7 - 26 mg/dL [facility] Creatinine 0.7 0.6 - 1.2 mg/dL [facility] Sodium 140 136 - 145 mmol/L [facility] Potassium 4.6(H) 3.5 - 4.5 mmol/L [facility] Chloride 106 98 - 107 mmol/L [facility] CO2 25 22 - 29 mmol/L [facility] Glucose 156(H) 70 - 115 mg/dL [facility] Calcium 8.4 8.4 - 10.2 mg/dL [facility] Anion Gap 14 8 - 18 [facility] BUN/Creatinine Ratio 34(H) 7 - 23 [facility] Osmolality Calculated 297 270 - 300 mOsm/kg [facility] eGFR >60 >60 mL/min/1.7 3 m2 [facility] Blood specimen (specimen) BLOOD SPECIMEN / Unknown 09/07/2017 4:28 AM CDT 09/07/2017 4:35 AM CDT Jason Nash MD LAB - CHEMISTRY ROYCE KLINE Performing Organization Address [facility]/ZIP Co de Phone Number [address] [phone] * (ABNORMAL) MAGNESIUM BLOOD (09/07/2017 4:28 AM CDT) Magnesium 1.4(L) 1.6 - 2.6 mg/dL [facility] Blood specimen (specimen) BLOOD SPECIMEN / Unknown 09/07/2017 4:28 AM CDT 09/07/2017 4:35 AM CDT Jason Nash MD LAB - CHEMISTRY ROYCE KLINE Performing Organization Address [facility]/ZIP Co de Phone Number [address] [phone] * PHOSPHORUS BLOOD (09/07/2017 4:28 AM CDT) Phosphorus 2.9 2.3 - 4.7 mg/dL [facility] Blood specimen (specimen) BLOOD SPECIMEN / Unknown 09/07/2017 4:28 AM CDT 09/07/2017 4:35 AM CDT Jason Nash MD LAB - CHEMISTRY ROYCE KLINE Performing Organization Address [facility] Co de Phone Number [address] [phone] * (ABNORMAL) CBC W AUTO DIFFERENTIAL (09/07/2017 4:28 AM CDT) WBC 10.1 3.5 - 10.5 10? 3 /uL [facility] Comment:Results are confirme d by repeat analysis. RBC 2.72(L) 4.30 - 5.70 10? 6 /uL [facility] Hemoglobin 7.4(L) 13.5 - 17.5 g/dL [facility] Hematocrit 25.1(L) 39.0 - 50.0 % [facility] MCV 92.3 81.0 - 97.0 fL [facility] MCH 27.2(L) 28.0 - 34.0 pg [facility] MCHC 29.5(L) 32.0 - 36.0 g/dL [facility] Platelet Count 313 150 - 400 10? 3 /uL [facility] RDW-SD 61.9(H) 36.0 - 50.0 fL [facility] RDW-CV 19.0(H) 11.2 - 14.8 % [facility] MPV 12.0 9.3 - 12.8 fL [facility] nRBC Absolute 0.03(H) 0 10? 3 /uL [facility] nRBC Auto 0.3(H) 0 /100 WBC [facility] Neutrophils % 90.7(H) 35.0 - 70.0 % [facility] Lymphocytes % 4.1(L) 19.7 - 55.1 % [facility] Monocytes % 5.0 3.0 - 15.0 % [facility] Eosinophils % 0.0 0.0 - 6.0 % [facility] Basophil % 0.2 0.0 - 1.5 % [facility] Neutrophils Absolute 9.1(H) 1.6 - 7.0 10? 3 /uL [facility] Lymphocyte Absolute 0.4(L) 0.8 - 2.9 10? 3 /uL [facility] Monocytes Absolute 0.50 0.14 - 0.66 10? 3 /uL [facility] Eosinophils Absolute 0.00 0.00 - 0.22 10? 3 /uL [facility] Basophils Absolute 0.02 0.00 - 0.06 10? 3 /uL [facility] Immature Granulocytes % 1.4(H) 0.0 - 1.0 % [facility] Blood specimen (specimen) BLOOD SPECIMEN / Unknown 09/07/2017 4:28 AM CDT 09/07/2017 4:35 AM CDT Jason Nash MD LAB - HEMATOLOGY ORD ERABLES [facility] [address] [place] [address] * CBC W AUTO DIFFERENTIAL (09/07/2017 4:28 AM CDT) Blood specimen (specimen) BLOOD SPECIMEN / Unknown 09/07/2017 4:28 AM CDT Narrative [facility] - 09/07/2017 4:43 AM CDT The following orders were created for panel order CBC w Differential. Procedure ? Abnormality ? Status ? --------- ? ------ ? CBC WITH DIFFERENTIAL[[id number]] ? Abnormal ?Final result ? Please view results for these tests on the individual orders. Jason Nash MD LAB - HEMATOLOGY ORD SP Performing Organization Address [facility] Co de Phone Number [facility] [address] * (ABNORMAL) GLUCOSE ACCUCHECK (09/07/2017 12:08 AM CDT) Pathologist [facility] Glucose, Fingerstick 143(H) 70-115mg/d L mg/dL [facility] ARI (LUISITO) Comment:Assistant Art Director: FAISAL MAO 09/07/2017 12:0 8 AM CDT Jason Nash MD LAB - CHEMISTRY ROYCE KLINE Performing Organization Address [facility] Co de Phone Number [facility] ARI HOOD) * EKG 12-LEAD (09/07/2017 12:00 AM CDT) Pathologist [facility] EKG [facility] RADIOLOGY Comment: Exam Date/Time: ?? Sep 07 [...] noted Reconfirmed by Mauri ROY, FREDA ([id number]), science editor Robi Pavon ([id number]) on 09/10/2017 6:07:09 PM Also confirmed by Mauri ROY, FREDA ([id number]), science editor Robi Pavon ([id number]) ??on 09/10/2017 6:07:41 PM Referred By: REFERRING NO ? Confirmed By:FREDA ROY M.D. 09/07/2017 Rebecca Melendez [facility] ECG ORDERABLES [facility] RADIOLOG[facility] * XR ABDOMEN KUB PORTABLE (09/06/2017 [...] Report dictated by Rohan Hopkins MD (residential therapist). I, Dr. SULLY RUANO M.D. have personally [...] Report dictated by Rohan Hopkins MD (residential therapist). I, Dr. SULLY RUANO M.D. have personally reviewed and interpretedthis examination/study. This report was electronically signed by SULLY RUANO M.D. on09/07/2017 12:20 PM . Rebecca Melendez [facility] G ORDERABLES * (ABNORMAL) BLOOD GASES ART COMPLETE [facility] OR (09/06/2017 4:21 PM CDT) pH Arterial 7.38 7.35 - 7.45 [facility] pCO2 Arterial 47(H) 35 - 45 mmHg [facility] pO2 Arterial 169(H) 71 - 95 mmHg [facility] HCO3 Arterial 27.0(H) 22.0 - 26.0 mmol/L [facility] TCO2 Arterial 28.4 25.0 - 29.0 mmol/L [facility] Base Excess Arterial 1.5 -2.0 - 2.0 mmol/L [facility] Hemoglobin Arterial 8.6(L) 13.5 - 17.5 g/dL [facility] Oxyhemoglobin Arterial 97.9 95.0 - 100.0 % [facility] Carboxyhemoglobin 0.3 0.0 - 3.0 % [facility] Methemoglobin 0.3 0.0 - 2.0 % [facility] FI O2 Arterial 50.0 % [facility] Ionized Calcium Whole Blood 1.14 mmol/L [facility] Adjusted Ionized Calcium 1.13(L) 1.19 - 1.34 mmol/L [facility] Sodium Whole Blood 140 135 - 145 mmol/L [facility] Potassium Whole Blood 4.2 3.5 - 5.5 mmol/L [facility] Chloride Whole Blood 109 101 - 111 mmol/L [facility] Glucose Whole Blood 134(H) 70 - 110 mg/dL [facility] Lactic Acid Whole Blood 2.5 0.5 - 3.4 mmol/L [facility] Blood specimen (specimen) 09/06/2017 4:21 PM CDT 09/06/2017 4:30 PM CDT Jason Nash MD LAB - BLOOD GASES OR DERABLES Performing Organization Address City/[facility]/ZIP Co de Phone Number [facility] [address] [phone] * (ABNORMAL) GLUCOSE ACCUCHECK (09/06/2017 4:19 PM CDT) Glucose, Fingerstick 128(H) 70-115mg/d L mg/dL [facility] RALS (BEAKER) Comment:Assistant Art Director: STONE ALI 09/06/2017 4:19 PM CDT Jason Nash MD LAB - CHEMISTRY ORDE RABLES Performing Organization Address [facility] Co de Phone Number [facility] RALS (BEAKER) * XR CHEST 1VW PORTABLE (09/06/2017 2:48 PM CDT) Anatomical Region Laterality Modality Chest Other Impressions 09/06/2017 4:13 PM CDT IMPRESSION: Right internal jugular approach central venous catheters superimposes the superior vena cava. Endotracheal tube terminates at the mid thoracic trachea. A gastric tube and a feeding tube follows the course of the esophagus and tips are off the [id number]. There is a moderate left pleural effusion, intervally decreased. There is a small right pleural effusion, unchanged. There are bilateral interstitial and airspace opacities likely representing pulmonary edema or pneumonia. No pneumothorax is identified. The cardiac silhouette is partly obscured. Report dictated by Rohan Hopkins M.D. (residential therapist). I, Dr. SILAS NGUYỄN MD have personally [...] of theesophagus and tips are off the xslas-[id number]-lycy. There is a moderate left pleural effusion, intervally decreased. There lisa small right pleural effusion, unchanged. There are bilateralinterstitial and airspace opacities likely representing pulmonary edema orpneumonia. No pneumothorax is identified. The cardiac silhouette is partly obscured. Report dictated by Rohan Hopkins M.D. (residential therapist). I, Dr. SILAS NGUYỄN MD have personally reviewed and interpreted thisexamination/study. This report was electronically signed by SILAS NGUYỄN MD on 09/06/20174:13 PM . Jason Nash MD DIAGNOSTIC IMAGING O RIO * CULTURE LEGIONELLA (09/06/2017 2:05 PM CDT) Culture Legionella No Growth Legionella 1 week. [facility] Bronchial Washings SPECIMEN FROM LUNG OBTAINED BY BRONCHIAL WASHING PROCEDURE / Unknown 09/06/2017 2:05 PM CDT 09/06/2017 2:23 PM CDT Narrative [facility] - 09/13/2017 8:55 AM CDT Specimen Type->Bronchial Washings Resulting Lab: ?? [facility] [address] [place] [address] PH: [phone] Jason Nash MD LAB - MICROBIOLOGY O RDSP [facility] [address] [place] [address], [facility] [phone] * CULTURE AEROBIC (09/06/2017 2:05 PM CDT) Culture Aerobic No Growth [facility] Gram Stain Moderate White Blood Cells [facility] Gram Stain No Organism Seen [facility] Bronchial Washings SPECIMEN FROM LUNG OBTAINED BY BRONCHIAL WASHING PROCEDURE / Unknown 09/06/2017 2:05 PM CDT 09/06/2017 2:23 PM CDT [facility] - 09/08/2017 11:09 AM CDT Specimen Type->Bronchial Washings Resulting Lab: ?? [facility] MI[facility]BIOLOG[facility] [address] [place] [address] PH: [phone] Jason Nash MD LAB - MICROBIOLOGY O RDERABLES [address] [phone] * CULTURE BLOOD (09/06/2017 12:35 PM CDT) Culture Blood No Growth at 5 days [facility] Blood specimen (specimen) DEVICE / Unknown 09/06/2017 12:35 PM CDT 09/06/2017 12:44 PM CDT [facility] - 09/11/2017 4:45 PM CDT Resulting Lab: ?? [facility] [address] [place] [address] PH: [phone] Bandar Mansfield MD LAB - MICROBIOLOGY ORDERABLES [address] [phone] * CULTURE BLOOD (09/06/2017 12:11 PM CDT) Culture Blood No Growth at 5 days [facility] Blood specimen (specimen) (Blood Line - Arterial) 09/06/2017 12:11 PM CDT 09/06/2017 12:16 PM CDT [facility] - 09/11/2017 4:30 PM CDT Draw 15 minutes after Culture 1 from a different site Resulting Lab: ?? [facility]BI[facility] [address] [place] [address] PH: [phone] Bandar Mansfield MD LAB - MICROBIOLOGY ORDERABLES [facility] [address] [place] [address], [facility] [phone] * (ABNORMAL) BLOOD GASES ART COMPLETE [facility] (09/06/2017 12:11 PM CDT) pH Arterial 7.28(L) 7.35 - 7.45 [facility] pCO2 Arterial 55(H) 35 - 45 mmHg [facility] pO2 Arterial 152(H) 71 - 95 mmHg [facility] HCO3 Arterial 25.0 22.0 - 26.0 mmol/L [facility] TCO2 Arterial 26.7 25.0 - 29.0 mmol/L [facility] Base Excess Arterial -2.0 -2.0 - 2.0 mmol/L [facility] Hemoglobin Arterial 8.6(L) 13.5 - 17.5 g/dL [facility] Oxyhemoglobin Arterial 97.6 95.0 - 100.0 % [facility] Carboxyhemoglobin 0.3 0.0 - 3.0 % [facility] Methemoglobin 0.6 0.0 - 2.0 % [facility] FI O2 Arterial 100.0 % [facility] Ionized Calcium Whole Blood 1.18 mmol/L [facility] Adjusted Ionized Calcium 1.12(L) 1.19 - 1.34 mmol/L [facility] Sodium Whole Blood 142 135 - 145 mmol/L [facility] Potassium Whole Blood 3.8 3.5 - 5.5 mmol/L [facility] Chloride Whole Blood 106 101 - 111 mmol/L [facility] Glucose Whole Blood 166(H) 70 - 110 mg/dL [facility] Lactic Acid Whole Blood 2.8(HH) 0.5 - 2.0 mmol/L [facility] Comment:Critical value(s) bailey ve been verified and called to and read back by Emma Ledezma at 1223 on 09/06/17. Blood specimen (specimen) 09/06/2017 12:11 PM CDT 09/06/2017 12:16 PM CDT Bandar Mansfield MD LAB - BLOOD GASES ORDERABLES Performing Organization Address [facility] Co de Phone Number [address] [phone] * (ABNORMAL) DIGOXIN LEVEL (09/06/2017 12:02 PM CDT) Digoxin <0.3(L) 0.8 - 2.0 ng/mL [facility] Comment: The reinsurance clerk of [employer] has stated that no immunoassay technique is suitable for quantitating digoxin in plasma/serum from patients on antibody fragment therapy. ? Blood specimen (specimen) BLOOD SPECIMEN / Unknown 09/06/2017 12:02 PM CDT 09/06/2017 12:08 PM CDT Bandar Mansfield MD LAB - CHEMISTRY OR DERABLES Performing Organization Address [facility] Co de Phone Number [address] [phone] * (ABNORMAL) PTT [facility] (09/06/2017 11:57 AM CDT) APTT 46.4(H) 23.0 - 38.4 Seconds [facility] Comment:Suggested therapeuti c range for full dose I.V. heparin therapy for venous thromboembolism is 66.0-91.0 seconds. Blood specimen (specimen) BLOOD SPECIMEN / Unknown 09/06/2017 11:57 AM CDT 09/06/2017 12:08 PM CDT Narrative [facility] - 09/06/2017 12:21 PM CDT Please ensure that the aPTT specimen is received in the clinical lab within 1 hour of collection if it is used for therapeutic heparin monitoring. Processing of heparinized specimens older than 1 hour may result in inaccurate test results. Is patient on Heparin, Argatroban or Dabigatran?->N Bandar Mansfield MD LAB - COAGULATION ORDERABLES [address] [phone] * (ABNORMAL) PT-INR [facility] (09/06/2017 11:57 AM CDT) Pathologist [facility] PT 24.5(H) 12.1 - 14.8 Seconds [facility] INR 2.2 See Comment [facility] Comment: Suggested therapeutic range for low-intensity coumadin therapy for venous thromboembolism prophylaxis is an INR of 2.0-3.0. ??For high risk patients (Mitral Valve Prosthesis, Atrial Fibrillation, history of TIA/stroke), suggested prophylactic therapeutic range is an INR of 2.5-3.5. Blood specimen (specimen) BLOOD SPECIMEN / Unknown 09/06/2017 11:57 AM CDT 09/06/2017 12:08 PM CDT Narrative [facility] - 09/06/2017 12:20 PM CDT Is patient on Heparin, Argatroban or Dabigatran?->N Bandar Mansfield MD LAB - COAGULATION ORDERABLES Performing Organization Address [facility]/ZIP Co de Phone Number [address] [phone] * TROPONIN I (09/06/2017 11:57 AM CDT) Pathologist [facility] Troponin I 0.027 <0.032 ng/mL [facility] Blood specimen (specimen) BLOOD SPECIMEN / Unknown 09/06/2017 11:57 AM CDT 09/06/2017 12:08 PM CDT Bandar Mansfield MD LAB - CHEMISTRY OR DERABLES [address] [phone] * (ABNORMAL) COMPREHENSIVE METABOLIC PANEL (09/06/2017 11:57 AM CDT) BUN 21 7 - 26 mg/dL [facility] Creatinine 0.7 0.6 - 1.2 mg/dL [facility] Sodium 143 136 - 145 mmol/L [facility] Potassium 3.8 3.5 - 4.5 mmol/L [facility] Chloride 108(H) 98 - 107 mmol/L [facility] CO2 20(L) 22 - 29 mmol/L [facility] Glucose 170(H) 70 - 115 mg/dL [facility] Calcium 8.5 8.4 - 10.2 mg/dL [facility] Protein Total 6.2 6.0 - 8.3 g/dL [facility] Albumin 1.8(L) 3.4 - 5.0 g/dL [facility] Bilirubin Total 0.3 0.2 - 1.2 mg/dL [facility] Alkaline Phosphatase 204(H) 40 - 150 Units/L [facility] ALT 10 0 - 55 Units/L [facility] AST 21 5 - 34 Units/L [facility] Anion Gap 19(H) 8 - 18 [facility] BUN/Creatinine Ratio 30(H) 7 - 23 [facility] Osmolality Calculated 303(H) 270 - 300 mOsm/kg [facility] Albumin/Globulin Ratio 0.4(L) 1.1 - 2.3 [facility] eGFR >60 >60 mL/min/1.7 3 m2 [facility] Blood specimen (specimen) BLOOD SPECIMEN / Unknown 09/06/2017 11:57 AM CDT 09/06/2017 12:08 PM CDT Bandar Mansfield MD LAB - CHEMISTRY OR DERABLES Performing Organization Address City/State/[facility] Co de Phone Number [address] [phone] * (ABNORMAL) CBC W AUTO DIFFERENTIAL (09/06/2017 11:57 AM CDT) WBC 27.8(H) 3.5 - 10.5 10? 3 /uL [facility] Comment:All CBC parameters h ave been checked. RBC 2.99(L) 4.30 - 5.70 10? 6 /uL [facility] Hemoglobin 8.2(L) 13.5 - 17.5 g/dL [facility] Hematocrit 28.5(L) 39.0 - 50.0 % [facility] MCV 95.3 81.0 - 97.0 fL [facility] MCH 27.4(L) 28.0 - 34.0 pg [facility] MCHC 28.8(L) 32.0 - 36.0 g/dL [facility] Platelet Count 432(H) 150 - 400 10? 3 /uL [facility] RDW-SD 64.7(H) 36.0 - 50.0 fL [facility] RDW-CV 19.1(H) 11.2 - 14.8 % [facility] MPV 12.1 9.3 - 12.8 fL [facility] nRBC Absolute 0.09(H) 0 10? 3 /uL [facility] nRBC Auto 0.3(H) 0 /100 WBC [facility] Neutrophils % 92.0(H) 35.0 - 70.0 % [facility] Lymphocytes % 5.2(L) 19.7 - 55.1 % [facility] Monocytes % 2.6(L) 3.0 - 15.0 % [facility] Eosinophils % 0.1 0.0 - 6.0 % [facility] Basophil % 0.1 0.0 - 1.5 % [facility] Neutrophils Absolute 25.6(H) 1.6 - 7.0 10? 3 /uL [facility] Lymphocyte Absolute 1.5 0.8 - 2.9 10? 3 /uL [facility] Monocytes Absolute 0.71(H) 0.14 - 0.66 10? 3 /uL [facility] Eosinophils Absolute 0.03 0.00 - 0.22 10? 3 /uL [facility] Basophils Absolute 0.04 0.00 - 0.06 10? 3 /uL [facility] Immature Granulocytes % 3.0(H) 0.0 - 1.0 % [facility] Blood specimen (specimen) BLOOD SPECIMEN / Unknown 09/06/2017 11:57 AM CDT 09/06/2017 12:08 PM CDT Bandar Mansfield MD LAB - HEMATOLOGY O RDERABLES [facility] [address] [phone] * (ABNORMAL) LACTIC ACID BLOOD (09/06/2017 11:57 AM CDT) Lactic Acid-Stat 3.3(HH) 0.5 - 2.0 mmol/L [facility] Comment:RESULTS CALLED TO AN D READ BACK BY DONTAE MACIEL AT 1:07 PM, 09/06/2017 Blood specimen (specimen) BLOOD SPECIMEN / Unknown 09/06/2017 11:57 AM CDT 09/06/2017 12:08 PM CDT Bandar Manfsield MD LAB - CHEMISTRY OR DERABLES Performing Organization Address [facility] de Phone Number [facility] [address] [phone] * CBC W AUTO DIFFERENTIAL (09/06/2017 11:57 AM CDT) Blood specimen (specimen) BLOOD SPECIMEN / Unknown 09/06/2017 11:57 AM CDT Narrative [facility] - 09/06/2017 12:16 PM CDT The following orders were created for panel order CBC w Differential. Procedure ? Abnormality ? Status ? --------- ? ------ ? CBC WITH DIFFERENTIAL[[id number]] ? Abnormal ?Final result ? Please view results for these tests on the individual orders. Bandar Mansfield MD LAB - HEMATOLOGY O RDERABLES Performing Organization Address [facility] Co de Phone Number [facility] [address] [place] [address], [facility] * XR [...] intact. Report dictated by Rohan Hopkins M.D. (residential therapist). Dr. VIBHA Stringer M.D. have personally reviewed [...] intact. Report dictated by Rohan Hopkins M.D. (residential therapist). I, Dr. VIBHA PHELPS M.D. have personally reviewed and interpreted thisexamination/study. This report was electronically signed by VIBHA PHELPS M.D. on 09/07/201712:31 PM . Bandar Mansfield MD DIAGNOSTIC IMAGING ORDERABLES * EKG 12-LEAD (09/06/2017 12:00 AM CDT) EKG [facility] RAD[facility] Comment: Exam Date/Time: ?? Sep 06 [...] bpm Confirmed by MD Jaime, Aneta ([id number]), science editor Robi Pavon ([id number]) on 09/10/2017 5:58:12 PM Referred By: REFERRING NO ? Confirmed By:Aneta Sandoval MD 09/06/2017 Bandar Mansfield MD ECG ORDERABLES [facility] documented in this encounter Visit Diagnoses [...] and unspecified disc disorder of lumbar region Chronic respiratory failure with hypoxia (HCC) Chronic respiratory failure documented in this encounter Administered Medications Inactive Administered Medications - up to 3 most recent administrations Medication Order MAR Action Action Date Dose Rate Site 0.9% NaCl injection 10 mL 10 mL, Intracatheter, PRN, Other, Starting on Tue09/10/17 at 0000, Until Tue09/19/17 at 1420 albuterol (PROVENTIL;VENTOLIN) (5 MG/ML) 0.5% nebulizer solution 2.5 mg 2.5 mg, Inhalation, EVERY 4 HOURS, First dose on Tue09/10/17 at 0000, Until Discontinued, Dilute prior to [...] Mouth/Throat, 2 TIMES DAILY, First dose on Tue09/10/17 at 0900, Until Discontinued, Swab mouth (oral [...] Tube, DAILY, 365 doses, First dose on Tue09/11/17 at 0900, Last dose on Tue09/10/18 at [...] 8:54 AM CDT 1 patch Ba ck lidocaine 1% - EPINEPHrine 1:100,000 injection PRN, Starting on Tu09/13/17 at 1710, Until Kellen 09/15/17 at 1533, Intra-op $ Given 09/13/2017 5:10 PM CDT 2.5 mL oxyCODONE (immediate release) (ROXICODONE) tablet 5 mg 5 mg, Enteral Tube, EVERY 4 HOURS PRN, Moderate Pain, Severe Pain, Starting on 09/19/17 at 1100, Until 09/19/17 at 1420 $ Given 09/19/2017 12:57 PM CDT 5 mg G Tube $ Given 09/19/2017 8:30 AM CDT 5 mg G Tube polyethylene glycol 3350 (MIRALAX) packet 17 g 17 g, Enteral Tube, DAILY PRN, Constipation, Starting on 09/11/17 at 0039, Until 09/19/17 at 1420, Mix [...] 8:12 AM CDT 8.6 mg G Tube documented in this encounter Active and Recently Administered Medications Times are shown in CDT. Scheduled Medication Order 09/17/2017 09/18/2017 09/19/2017 albuterol (PROVENTIL;VENTOLIN) (5 MG/ML) 0.5% nebulizer solution 2.5 mg 2.5 mg, Inhalation, EVERY 4 HOURS, First dose on 09/10/17 at 0000, Until Discontinued, Dilute prior to administration via nebulization. 0200 ($ Given - Provider: Jadon Araujo PASTA PRESS OPERATOR)0505 ($ Given - Provider: Jadon Araujo PASTA PRESS OPERATOR)0840 ($ Given - Provider: Taylor Coleman [facility])1341 ($ Given - Provider: Taylor Coleman PASTA PRESS OPERATOR)1725 ($ Given - Provider: Taylor Coleman PASTA PRESS OPERATOR)2035 ($ Given - Provider: Jadon Araujo PASTA PRESS OPERATOR) 0141 ($ Given - Provider: Jadon Araujo RCP)0611 ($ Given - Provider: Jadon Araujo RCP)0839 ($ Given - Provider: Taylor Coleman PASTA PRESS OPERATOR)1259 ($ Given - Provider: Taylor Coleman PASTA PRESS OPERATOR)1650 ($ Given - Provider: Taylor Coleman PASTA PRESS OPERATOR)2019 ($ Given - Provider: Michael Callahan PASTA PRESS OPERATOR) 0008 ($ Given - Provider: Michael Callahan PASTA PRESS OPERATOR)0410 ($ Given - Provider: Michael Callahan PASTA PRESS OPERATOR)0825 ($ Given - Provider: Taylor Coleman RCP)1252 [...] ($ Given - Provider: Nora Butcher RN) 08 ($ Given - Provider: Noa Reyes RN) aspirin (ASPIRIN) chew tablet 81 mg 81 mg, Enteral Tube, DAILY, First dose (after last modification) on Tue09/19/17 at 0900, Until Discontinued 0911 ($ Given - Provider: Karina Walker RN) atorvastatin (LIPITOR) tablet 20 mg (CANCELED) 20 mg, Oral, DAILY, First dose (after last modification) on Tue09/10/17 at 0900, Until Discontinued 0852 ($ Given - Provider: Nora Butcher RN) 08 ($ Given - Provider: Noa Reyes, DONTAE) atorvastatin (LIPITOR) tablet 20 mg 20 mg, Enteral Tube, DAILY, First dose (after last modification) on Tue09/19/17 at 0900, Until Discontinued 09 ($ Given - Provider: Karina Walker RN) chlorhexidine (PERIDEX) 0.12 % oral solution Mouth/Throat, 2 TIMES DAILY, First dose on Tue09/10/17 at 0900, Until Discontinued, Swab mouth (oral cavity) wile mechanically ventilated . WASTE DISPOSAL INSTRUCTIONS: Black Bin Disposal required. 0854 ($ Given - Provider: Nora Butcher RN)2100 ($ Given - Provider: Malaika Gonzalez RN) 08 ($ Given - Provider: Noa Reyes RN)2130 ($ Given - Provider: Malaika Gonzalez, DONTAE) 09 ($ Given - Provider: Karina Walker, DONTAE) docusate sodium (COLACE) solution 100 mg 100 mg, Enteral Tube, DAILY, 365 doses, First dose on 09/11/17 at 0900, Last dose on 09/10/18 at 0900 0854 ($ Given - Provider: Nora Butcher RN) 08 ($ Given - Provider: Noa Reyes RN) 09 ($ Given - Provider: Karina Walker, RN) enoxaparin (LOVENOX) injection 40 mg 40 mg, Subcutaneous, DAILY, 365 doses, First dose on Tue09/16/17 at 1130, Last dose on Tue09/15/18 at 0900, (for prefilled syringes) do not expel air bubble from the syringe prior to the injection Remind Patient to not rub injection site. Could cause hematoma. 0854 ($ Given - Provider: Nora Butcher RN) 08 ($ Given - Provider: Noa Reyes RN) 09 ($ Given - Provider: Karina Walker, [...] Given - Provider: Malaika Gonzalez RN) 08 (See Alternative - Provider: Noa Reyes, DONTAE)2129 ($ Given - Provider: Malaika Gonzalez, DONTAE) 09 (See Alternative - Provider: Karina Walker, DONTAE) famotidine (PEPCID) tablet 20 mg(Linked Group 1) [...] Hours, DAILY, 365 doses, First dose on Tue09/10/17 at 0900, Last dose on Tue09/09/18 at 0900, Apply to lower back and remove patch after a max of 12 hours of application within a 24 hour period. 0854 ($ Applied - Provider: Nora Butcher, RN)214 (Removed - Provider: Malaika Gonzalez, DONTAE) 08 ($ Applied - Provider: Noa Reyes, DONTAE)223 (Removed - Provider: Malaika Gonzalez RN) 09 ($ Applied - Provider: Karina Walker, RN)2111 (Due: Removed - Provider: Karina Walker, RN) magnesium sulfate 2 g in 50 [...] 0818 ($ Given - Provider: Noa Reyes, DONTAE) senna (SENOKOT) tablet 8.6 mg 8.6 mg, Enteral Tube, 2 TIMES DAILY, 730 doses, First dose on 09/11/17 at 0045, Last dose on 09/10/18 at 0900 0852 ($ Given - Provider: Nora Butcher RN)2100 ($ Given - Provider: Malaika Gonzalez, DONTAE) 08 ($ Given - Provider: Noa Reyes, DONTAE)2129 ($ Given - Provider: Malaika Gonzalez RN) [...] at 1054 2151 ($ Given - Provider: Maalika Gonzalez, RN) 1055 ($ Given - Provider: [...] Gonzalez, DONTAE)2355 ($ Given - Provider: Malaika oGnzalez, RN) 0450 ($ Given - Provider: Malaika Gonzalez, DONTAE)0832 ($ Given - Provider: Noa Reyes, RN)1315 ($ Given - Provider: Noa Reyes, RN)1702 ($ Given - Provider: Noa Reyes, RN)2130 ($ Given - Provider: Malaika Gonzalez, DONTAE) oxyCODONE (immediate release) (ROXICODONE) tablet 5 mg 5 mg, Enteral Tube, EVERY 4 HOURS PRN, Moderate Pain, Severe Pain, Starting on Tue09/19/17 at 1100, Until Tue09/19/17 at 1420 0830 ($ Given - Provider: Karina Walker, RN)1257 ($ Given - Provider: Karina Walker [...] documented as of this encounter Care Teams Recreational Leader Relationship Specialty Start Date End Date Briana Medeiros MD [address] [place], [place] [id number] PCP - General Family Medicine 09/04/17 09/18/17 documented as of this encounter
--- OUTSIDE RECORDS SUMMARY | 2024-05-24 23:42 | XMS_ITS | Encounter Summary ---
Author Organization [facility] Address [address] [place] [address] Care Team Providers Care Warp Doffer Name Role Phone Briana Medeiros MD Primary Care Provider [phone] Encounter Details Date Type Department Care Team (Late Contact Info) Description 06/13/2017 Orders Only [facility] [address] [place] [address] Puneet Faustin MD [address] [place] [address] [address] [place] [address] Other eczema ; Pruritus of skin Social History Tobacco Use Types Packs/Day Years Used Date Smoking Tobacco: Never Assessed Sex and Gender Information Value Date Recorded Sex Assigned at Not on file Gender Identity Not on file Sexual Orientation Not on file documented as of this encounter Plan of Treatment Upcoming Encounters Date Type Department Care Team (Late Contact Info) Description 07/09/2024 12:30 PM DINING SERVICES MANAGER Office Visit [facility] [place] [address] [place] [address], [place] [id number] Twin Miller MD [address] [place] [address] 2L [place] [address] 09/19/2024 2:00 PM CDT Office Visit [facility] Orthopedic [facility] [address] [place] [address] Larry Alexander MD [address] [place] [address] documented as of this encounter Visit Diagnoses Diagnosis Other eczema- Primary Pruritus of skin Unspecified pruritic disorder documented in this encounter Care Teams Warp Doffer Relationship Specialty Start Date End Date Briana Medeiros MD [address] [place] [address] PCP - General Family Medicine 09/04/17 09/18/17 documented as of this encounter
--- OUTSIDE RECORDS SUMMARY | 2024-05-24 23:44 | XMS_ITS | Clinical Summary ---
Author Organization Unknown Care Team Providers Care Contract Technical Writer Name Role Phone LUISA TUCKER, SHAQ Unavailable Unavailable ERICA RN, DINORAH Unavailable Unavailable FRANCESCA ENTERPRISE RESOURCE ANALYST, TAYLOR Unavailable Unavailable CORNELIA PT, DENITA Unavailable Unavailable MARBIN CLEANING SPECIALIST, YURI Unavailable Unavailestrellita WATSON OT, VANDANA Unavailable Unavailable SAJI QUIROS/HEATHER, ALTAF Unavailable Unavail able Payers Payer Name Policy Type Policy Number Effective Date Expira tion Date [facility] [id number] SELF [facility]Y [facility]ONDARY [facility]IC[facility] [id number] Problems Condition Name Condition Details Condition Category [...] APNEA (ADULT) (PEDIATRIC) Active 06-06 00:00: 00 CARE HOME (CURRENT) USE OF ANTICOAGULAN TS Active 06-06 [...] FOLLOWING ANY HOSPITAL ADMISSION. ALL DISCIPLINES (EXCEPT [facility] [place]) MAY PROVIDE TELEHEALTH PHONE/REMOTE/VIRTUAL VISITS IN LIEU [...] FOLLOWING ANY HOSPITAL ADMISSION. ALL DISCIPLINES (EXCEPT [facility]) MAY PROVIDE TELEHEALTH PHONE/REMOTE/VIRTUAL VISITS IN LIEU [...] MINIMIZE RISK OF HOSPITALIZATION. AGENT ORANGE IN [facility] SKILLED NURSE TO INSTRUCT ON SELF-CARE MANAGEMENT [...] MINIMIZE RISK OF HOSPITALIZATION. AGENT ORANGE IN [facility] SKILLED NURSE TO INSTRUCT ON SELF-CARE MANAGEMENT INCLUDING BREATHING TECHNIQUES, AIRWAY CLEARANCE, AND PROPER USE OF COPD MEDICATIONS. ASSESS PATIENT/CAREGIVER ABILITY TO MONITOR AND RECORD VITALS SIGNS INCLUDING PULSE OXIMETRY AND BLOOD PRESSURE. PULSE OXIMETER AND BP MONITOR TO BE PROVIDED IF NEEDED ] Future Scheduled Test OXYGEN THE RAPY; SKILLED NURSE TO INSTRUCT ON OXYGEN MANAGEMENT INCLUDING: ADMINISTRATION AT 1 L/MIN VIA [place] CONTINUOUS CARE OF EQUIPMENT AND SAFETY. [code = OXYGEN THERAPY; SKILLED NURSE TO INSTRUCT ON OXYGEN MANAGEMENT INCLUDING: ADMINISTRATION AT 1 L/MIN VIA [place] CONTINUOUS CARE OF EQUIPMENT AND SAFETY.] Future [...] IN RESULTS TO DR ROGELIO DEMPSEY FAX [phone] [code = VENIPUNCTURE DIAGNOSTIC; SKILLED NURSE TO PERFORM VENIPUNCTURE ON 01/03/20 FOR N17.9 BMP ROUTINE FOR ACUTE KIDNEY FAILURE PREFERENCE IS [facility] FAX/CALL IN RESULTS TO DR ROGELIO DEMPSEY FAX [phone]] Future Scheduled Test AGENCY MAY PERFORM A RESUMPTION OF CARE VISIT FOLLOWING ANY HOSPITAL ADMISSION. ALL DISCIPLINES (EXCEPT [facility]) MAY PROVIDE TELEHEALTH PHONE/REMOTE/VIRTUAL VISITS IN LIEU [...] FOLLOWING ANY HOSPITAL ADMISSION. ALL DISCIPLINES (EXCEPT [facility] [place]) MAY PROVIDE TELEHEALTH PHONE/REMOTE/VIRTUAL VISITS IN LIEU [...] 2019-12-29 00:00:00 2020-02-26 00:00:00 Outpatient DINORAH PETERS [facility] [id number] 2020-02-26 00:00:00 DISCHARGE TO HOME OR SELF CARE INDEPENDEN T WITH USE OF ASSISTIVE DEVICE HH OR PAL- GOALS MET 91.18
[2024-05-25] VITALS (10 sets, daily range): BP systolic 120–128; BP diastolic 66–74; PULSE 79–83; RESP 16–18; TEMP 36.1–36.3; O2SAT 97–100
--- OUTSIDE RECORDS SUMMARY | 2024-05-25 02:50 | XMS_ITS | Clinical Summary ---
Author Organization Unknown Care Team Providers Care Operating Room Manager Name Role Phone LUISA TUCKER, SHAQ Unavailable Unavailable ERICA RN, DINORAH Unavailable Unavailable FRANCESCA BLOW PIT HELPER, TAYLOR Unavailable Unavailable CORNELIA PT, DENITA Unavailable Unavailable MARBIN WARP KNIT OPERATOR, YURI Unavailable Unavailestrellita WATSON OT, VANDANA Unavailable Unavailable SAJI QUIROS/HEATHER, ALTAF Unavailable Unavail able Payers Payer Name Policy Type Policy Number Effective Date Expira tion Date [facility] [id number] SELF PAY SECONDARY MEDICARE.[facility] [place] [id number] Problems Condition Name Condition Details Condition Category [...] APNEA (ADULT) (PEDIATRIC) Active 06-06 00:00: 00 INTERMEDIATE (CURRENT) USE OF ANTICOAGULAN TS Active 06-06 [...] FOLLOWING ANY HOSPITAL ADMISSION. ALL DISCIPLINES (EXCEPT MACHINE CLEANER) MAY PROVIDE TELEHEALTH PHONE/REMOTE/VIRTUAL VISITS IN LIEU [...] FOLLOWING ANY HOSPITAL ADMISSION. ALL DISCIPLINES (EXCEPT MACHINE CLEANER) MAY PROVIDE TELEHEALTH PHONE/REMOTE/VIRTUAL VISITS IN LIEU [...] MINIMIZE RISK OF HOSPITALIZATION. AGENT ORANGE IN [facility] SKILLED NURSE TO INSTRUCT ON [...] MINIMIZE RISK OF HOSPITALIZATION. AGENT ORANGE IN [facility] SKILLED NURSE TO INSTRUCT ON [...] MANAGEMENT INCLUDING: ADMINISTRATION AT 1 L/MIN VIA [place] CONTINUOUS CARE OF EQUIPMENT AND SAFETY. [code = OXYGEN THERAPY; SKILLED NURSE TO INSTRUCT ON OXYGEN MANAGEMENT INCLUDING: ADMINISTRATION AT 1 L/MIN VIA [place] CONTINUOUS CARE OF EQUIPMENT AND SAFETY.] Future [...] IN RESULTS TO DR ROGELIO DEMPSEY FAX [phone] [code = VENIPUNCTURE DIAGNOSTIC; SKILLED NURSE TO PERFORM VENIPUNCTURE ON 01/03/20 FOR N17.9 BMP ROUTINE FOR ACUTE KIDNEY FAILURE PREFERENCE IS [facility] FAX/CALL IN RESULTS TO DR ROGELIO DEMPSEY FAX [phone]] Future Scheduled Test AGENCY MAY PERFORM A RESUMPTION OF CARE VISIT FOLLOWING ANY HOSPITAL ADMISSION. ALL DISCIPLINES (EXCEPT [facility]) MAY PROVIDE TELEHEALTH PHONE/REMOTE/VIRTUAL VISITS IN LIEU [...] FOLLOWING ANY HOSPITAL ADMISSION. ALL DISCIPLINES (EXCEPT MACHINE CLEANER) MAY PROVIDE TELEHEALTH PHONE/REMOTE/VIRTUAL VISITS IN LIEU [...] 2019-12-29 00:00:00 2020-02-26 00:00:00 Outpatient DINORAH PETERS [facility] [id number] 2020-02-26 00:00:00 DISCHARGE TO HOME OR SELF CARE INDEPENDEN T WITH USE OF ASSISTIVE DEVICE HH OR PAL- GOALS MET 91.18
--- OUTSIDE RECORDS SUMMARY | 2024-05-25 02:50 | XMS_ITS | Encounter Summary ---
Author Organization [facility] Healthcare Address [address] [place] [address] Care Team Providers Care Reproduction Specialist Name Role Phone Cleo Funk Primary Care Provider + Reason for Visit * Reason Comments Follow-up 6 mo f/u. Discharged from on 01/24/24 Dx: resp failure and CHF Atrial Fibrillation Encounter Details Date Type Department Care Team (Late st Contact Info) Description 03/27/2024 1:45 PM CDT Office Visit [facility] Medical Group Cardiology [address] [address] Epi Lake MD [address] [facility] [address] [place] [address] Chronic atrial fibrillation (HCC) (Primary Dx) Social History Tobacco Use Types Packs/Day Years Used Date Smoking Tobacco: Former Cigarettes Q uit: 1982 Smokeless Tobacco: Never Alcohol Use Standard Drinks/Week Comments No 0 (1 standard drink = 0.6 oz pur e alcohol) Sex and Gender Information Value Date Recorded Sex Assigned at Not on file 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 Physicians at the [facility] had placed him on amiodarone for simple rate control. After I saw the patient in follow-up in February of 2018 I transitioned him back to standard beta-fe treatment because the pharm tech at the [facility] did not want him on the amiodarone [...] anticoagulation. He was in the hospital at [place] in January of this year with shortness [...] 12/27/2023 added in this encounter Care Teams Reproduction Specialist Relationship Specialty Start Date End Date Cleo Funk DO [facility] [address] BAUM [address] [place] [address] PCP - General Family Medicine 03/27/24 documented as of this encounter
--- OUTSIDE RECORDS SUMMARY | 2024-05-25 02:50 | XMS_ITS | Referral Summary ---
Author Organization [address] Address [address] [facility] [address] [place] [address] Care Team Providers Care Inspector Scales Name Role Phone Cleo Funk DO Primary Care Provider + Encounters Date Type Department Care Team Description 05/16/2024 Orders Only [facility] Pulmonary [address] [facility] 8th [place] [address] [place] [address] Puneet Powell MD Chronic obstructive pulmonary disease, unspecified COPD type (HCC) (Primary Dx) 04/10/2024 Telephone [facility] Medical Group Cardiology [address] [facility] [address] [place] [address] Epi Lake MD 03/27/2024 1:45 PM CDT Office Visit [facility] Medical [facility] Cardiology [address] [place] [address] [address] [place] [address] Epi Lake MD Chronic atrial [...] therapy. Lungs are clear Hypercapnic respiratory failure ([facility]/HCC) 2017 Overview (10/25/2017): Tracheostomy successfully D cannulated. FiO2 to maintain a saturation 90%. Continue BiPAP at night. Assessment & Plan (11/05/2017 6:41 AM CDT): Successfully decannulated. Comfortable on room air. Doing well without BiPAP Diskitis 10/25/2017 Overview (10/25/2017): Debridement, completed antibiotic therapy for diskitis prior to his admission to [facility] Assessment & Plan (11/05/2017 6:40 AM CDT): Completed debridement, prolonged antibiotic therapy for an L1 diskitis. Continue physical therapy, pain control Pneumonia 10/25/2017 Assessment & Plan (11/09/2017 8:10 AM CDT): Completed treatment for pneumonia, empyema prior to transfer to [facility]. Finished Bactrim for stenotrophomonas pneumonia here. Continue to observe off antibiotics. Chronic atrial fibrillation 02/22/2017 Assessment & Plan (11/09/2017 8:12 AM CDT): Normal sinus rhythm by exam. Monitor for bleeding ( had bleeding around his tracheostomy, skin tears while at [facility]). 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 Gender Identity Not on file Sexual [...] Plan of Treatment Not on file Insurance [facility] MEDICARE [facility] Address: [facility] [id number] [place] [id number] AETNA MEDICARE AETNA MEDICARE Advance Directives For more information, please contact: [phone] * Full Code (Latest Code Status on File) Date Activated Date Inactivated Comments 10/24/2017 8:34 PM 2017 4:37 PM Care Teams Inspector Scales Relationship Specialty Start Date End Date Cleo Funk DO [facility] [address] PCP - General Family Medicine 03/27/24
--- OUTSIDE RECORDS SUMMARY | 2024-05-25 02:50 | XMS_ITS | Encounter Summary ---
Author Organization [facility] Group Address [address] [facility] [address] [place] [address] Care Team Providers Care Stone Polisher Hand Name Role Phone Napoleon Birmingham MD Primary Care Provider [phone] Reason for Visit * Reason Comments Atrial Fibrillation 6 month fu Encounter Details Date Type Department Care Team (Late st Contact Info) Description 03/25/2022 11:15 AM CDT Office Visit [facility] Medical Group Cardiology [address] [facility] [address] [facility] [address] [place] [address] Epi Lake MD [address] [facility] [address] [facility] [address] [place] [address] Chronic atrial fibrillation (HCC) (Primary [...] on file Legal Sex Male 11:24 AM EDGE BLACKER Gender Identity Not on file Sexual Orientation [...] off the ventilator support. Physicians at the [facility] had placed him on amiodarone for simple rate control. After I saw the patient in follow-up in February of 2018 I transitioned him back to standard beta-fe treatment because the rn tele at the [place] did not want him on the amiodarone [...] concerns. [facility]. I spoke to him about this because he is on potassium-sparing diuretic as well as a potassium supplement. Obviously his hand polisher is handling that. He is not aware [...] 02/11/2022 added in this encounter Care Teams Stone Polisher Hand Relationship Specialty Start Date End Date Napoleon Birmingham MD PCP - General Family Medicine 03/25/22 03/26/24 documented as of this encounter
--- OUTSIDE RECORDS SUMMARY | 2024-05-25 02:50 | XMS_ITS | Encounter Summary ---
Author Organization [facility] Address [address] [facility] [address] [place] [address] Care Team Providers Care Postdoctoral Research Associate Name Role Phone Napoleon Birmingham MD Primary Care Provider [phone] Reason for Visit * Reason Comments Atrial Fibrillation 6 month follow up. 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 Physicians at the [facility] had placed him on amiodarone for simple rate control. After I saw the patient in follow-up in February of 2018 I transitioned him back to standard beta-fe treatment because the group social worker at the [place] did not want him on the amiodarone [...] are records of him being hospitalized at [facility] in July of this year with shortness of breath and was found to have a COPDexacerbation. Apparently another echocardiogram was done while he is in the hospital and continued to show normal left ventricular systolic function and no significant valvular dysfunction. None of this was new information. The patient was subsequently in the hospital briefly at [facility] or at least seen in the emergency room because his group social worker down there noted some findings concerning of [...] disorders documented in this encounter Care Teams Postdoctoral Research Associate Relationship Specialty Start Date End Date Napoleon Birmingham MD PCP - General Family Medicine 03/25/22 03/26/24 documented as of this encounter
--- OUTSIDE RECORDS SUMMARY | 2024-05-25 02:50 | XMS_ITS | Clinical Summary ---
Author Organization [facility] [address] Address [address] [place] [address] Care Team Providers Care Four Slide Operator Name Role Phone Cleo Funk DO [...] for diskitis prior to his admission to [facility] Assessment & Plan (11/05/2017 6:40 AM CDT): Completed debridement, prolonged antibiotic therapy for an L1 diskitis. Continue physical therapy, pain control Pneumonia 10/25/2017 Assessment & Plan (11/09/2017 8:10 AM CDT): Completed treatment for pneumonia, empyema prior to transfer to [facility]. Finished Bactrim for stenotrophomonas pneumonia here. Continue to observe off antibiotics. Chronic atrial fibrillation 02/22/2017 Assessment & Plan (11/09/2017 8:12 AM CDT): Normal sinus rhythm by exam. Monitor for bleeding ( had bleeding around his tracheostomy, skin tears while at [facility]). Continue amiodarone, aspirin, Lipitor, metoprolol, apixaban Encounters Date Type Department Care Team Description 05/16/2024 Orders Only [facility] Pulmonary [address] [facility] Advanced Medicine 8th [place] [address] [place] [address] Puneet Powell MD Chronic obstructive pulmonary disease, unspecified COPD type (HCC) (Primary Dx) 04/10/2024 Telephone [facility] Medical Group Cardiology [address] [place] [address] Epi Lake MD 03/27/2024 1:45 PM CDT Office Visit [facility] Medical Group Cardiology [address] [place] [address] Epi Lake MD Chronic atrial fibrillation (HCC) [...] on file Legal 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
--- OUTSIDE RECORDS SUMMARY | 2024-05-25 02:50 | XMS_ITS | Encounter Summary ---
Author Organization [facility] Address [address] [place] [address] Phone Care Team Providers Care Mds Manager Name Role Phone Cleo Funk DO Primary Care Provider + Encounter Details Date Type Department Care Team (Late st Contact Info) Description 05/16/2024 Orders Only [facility] Pulmonary [address] [facility] Advanced Medicine 8th [place] [address] [place] [address] Puneet Powell MD [address] [place] [address] Chronic obstructive pulmonary disease, unspecified COPD type (HCC) (Primary Dx) Social History Tobacco Use Types Packs/Day Years Used Date Smoking Tobacco: Former Cigarettes Q uit: 1982 Smokeless Tobacco: Never Alcohol Use Standard Drinks/Week Comments No 0 (1 standard drink = 0.6 oz pur e alcohol) Sex and Gender Information Value Date Recorded Sex Assigned at Not on file Legal 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
--- OUTSIDE RECORDS SUMMARY | 2024-05-25 02:50 | XMS_ITS | Encounter Summary ---
Author Organization [facility] Healthcare Address [address] [place] [address] Care Team Providers Care Digital Media Strategist Name Role Phone Napoleon Birmingham MD Primary Care Provider [phone] Reason for Visit * Reason Comments Atrial Fibrillation 6 mo f/u Encounter Details Date Type Department Care Team (Late st Contact Info) Description 03/29/2023 2:15 PM CDT Office Visit [facility] Medical Group Cardiology [address] [facility] [address] [place] [address] Epi Lake MD [address] [place] [address] [place] [address] Chronic atrial fibrillation (HCC) (Primary Dx) Social History Tobacco Use Types Packs/Day Years Used Date Smoking Tobacco: Former Cigarettes Q uit: 1982 Smokeless Tobacco: Never Alcohol Use Standard Drinks/Week Comments No 0 (1 standard drink = 0.6 oz pur e alcohol) Sex and Gender Information Value Date Recorded Sex Assigned at Not on file 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 Physicians at the [facility] had placed him on amiodarone for simple rate control. After I saw the patient in follow-up in February of 2018 I transitioned him back to standard beta-fe treatment because the mop maker at the [place] did not want him on the amiodarone [...] daily added in this encounter Care Teams Digital Media Strategist Relationship Specialty Start Date End Date Napoleon Birmingham MD PCP - General Family Medicine 03/25/22 03/26/24 documented as of this encounter
--- OUTSIDE RECORDS SUMMARY | 2024-05-25 02:50 | XMS_ITS | Encounter Summary ---
Author Organization [facility] Medical Group Address [address] [facility] [address] [place] [address] Care Team Providers Care Livestock Yard Attendant Name Role Phone Napoleon Birmingham MD Primary Care Provider [phone] Encounter Details Date Type Department Care Team (Late st Contact Info) Description 07/21/2022 Orders Only [facility] Health Information Management [address] [place] [address] Scanning, Provider Social History Tobacco Use Types Packs/Day Years Used Date Smoking Tobacco: Former Cigarettes Q uit: 1982 Smokeless Tobacco: Never Alcohol Use Standard Drinks/Week Comments No 0 (1 standard drink = 0.6 oz pur e alcohol) Sex and Gender Information Value Date Recorded Sex Assigned at Not on file Legal 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
--- OUTSIDE RECORDS SUMMARY | 2024-05-25 02:50 | XMS_ITS | Encounter Summary ---
Author Organization [facility] Address [address] [facility] [address] [place] [address] Care Team Providers Care Radio Station Engineer Name Role Phone Briana Medeiros MD Primary Care Provider [phone] Reason for Visit * Reason Comments Atrial Fibrillation 6 month fu Encounter Details Date Type Department Care Team (Late st Contact Info) Description 09/24/2021 10:45 AM CDT Office Visit [facility] Cardiology [address] [facility] [address] [facility] [address] [place] [address] Epi Lake MD [address] [facility] [address] [facility] 102 [place] [address] Chronic atrial fibrillation (HCC) (Primary Dx) Social History Tobacco Use Types Packs/Day Years Used Date Smoking Tobacco: Former Cigarettes Q uit: 1982 Smokeless Tobacco: Never Alcohol Use Standard Drinks/Week Comments No 0 (1 standard drink = 0.6 oz pur e alcohol) Sex and Gender Information Value Date Recorded Sex Assigned at Not on file 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 Physicians at the [facility] had placed him on amiodarone for simple rate control. After I saw the patient in follow-up in February of 2018 I transitioned him back to standard beta-fe treatment because the ballistics expert forensic at the [facility] did not want him on the amiodarone [...] day added in this encounter Care Teams Radio Station Engineer Relationship Specialty Start Date End Date Briana Medeiros MD [address] [place] [address] PCP - General 07/06/12 03/24/22 documented as of this encounter
--- OUTSIDE RECORDS SUMMARY | 2024-05-25 02:50 | XMS_ITS | Encounter Summary ---
Author Organization [facility] Address [address] [place] [address] Care Team Providers Care Tire Technician Name Role Phone Napoleon Birmingham MD Primary Care Provider [phone] Reason for Visit * Reason Comments Atrial Fibrillation 6 month follow up. * Consultation (Routine) - Closed Specialty Diagnoses / Procedures Referred By Contac t Referred To Contact Cardiology Diagnoses Chronic atrial fibrillation (HCC) Epi Lake MD [address] [address] Phone: tel: fax: [facility] Cardiology [address] [place] [address] Phone: tel: fax: Referral ID Status Reason Start Date Expiration Date V isits Requested Visits Authorized [id number] Closed Specialty Services Required 09/27/2023 10/26/2024 1 1 Encounter Details Date Type Department Care Team (Late st Contact Info) Description 09/27/2023 1:30 PM CDT Office Visit [facility] Cardiology [address] [place] [address] [address] [place] [address] Epi Lake MD [address] [facility] [address] [address] Lipid screening (Primary Dx); Chronic atrial fibrillation (HCC) Social History Tobacco Use Types Packs/Day Years Used Date Smoking Tobacco: Former Cigarettes Q uit: 1982 Smokeless Tobacco: Never Alcohol Use Standard Drinks/Week Comments No 0 (1 standard drink = 0.6 oz pur e alcohol) Sex and Gender Information Value Date Recorded Sex Assigned at Not on file Legal Sex Male 11:24 AM HOUSING OFFICER Gender Identity Not on file Sexual [...] off the ventilator support. Physicians at the [facility] had placed him on amiodarone for simple rate control. After I saw the patient in follow-up in February of 2018 I transitioned him back to standard beta-fe treatment because the nursing tech at the [place] did not want him on the amiodarone [...] brought to the emergency room here at [place] to evaluate significant shortness of breath that occurred after working out at the [facility]. It is admirable that he has been [...] 09/27/2023 documented in this encounter Care Teams Tire Technician Relationship Specialty Start Date End Date Napoleon Birmingham MD PCP - General Family Medicine 03/25/22 03/26/24 documented as of this encounter
--- OUTSIDE RECORDS SUMMARY | 2024-05-25 02:50 | XMS_ITS | Encounter Summary ---
Author Organization [facility] Address [address] [place] [address] Care Team Providers Care Sewing Teacher Name Role Phone Cleo Funk Primary Care Provider + Encounter Details Date Type Department Care Team (Late st Contact Info) Description 04/10/2024 Telephone [facility] Cardiology [address] [facility] 162 [facility] 102 [place] [address] Epi Lake MD [address] [facility] [address] [facility] [address] [place] [address] Social History Tobacco Use Types Packs/Day Years Used Date Smoking Tobacco: Former Cigarettes Q uit: 1982 Smokeless Tobacco: Never Alcohol Use Standard Drinks/Week Comments No 0 (1 standard drink = 0.6 oz pur e alcohol) Sex and Gender Information Value Date Recorded Sex Assigned at Not on file Legal Sex Male 11:24 AM STATION INSTALLATION SUPERVISOR Gender Identity Not on file Sexual Orientation Not on file documented as of this encounter Miscellaneous Notes * Telephone Encounter - Ada Yates RN - 04/10/2024 3:29 PM STATION INSTALLATION SUPERVISOR Refaxed completed forms. ION INSTALLATION SUPERVISOR * Telephone Encounter - Maida Lepe - 04/10/2024 3:12 PM CST Isabell called from Dr. Brown office states [facility] did not check miacol on the medication hold. Requesting that be addressed and re faxed. Thank you. Contact: ION INSTALLATION SUPERVISOR documented in this encounter Plan of Treatment Not on file documented as of this encounter Visit Diagnoses Not on filedocumented in this encounter Care Teams Sewing Teacher Relationship Specialty Start Date End Date Cleo Funk DO [facility] [facility] [address] [place] [address] [place] [address], [place] [address] PCP - General Family Medicine 03/27/24 documented as of this encounter
--- OUTSIDE RECORDS SUMMARY | 2024-05-25 02:50 | XMS_ITS | Encounter Summary ---
Author Organization [facility] Address [address] [facility] [address] [place] [address] Care Team Providers Care Twitchell Operator Name Role Phone Napoleon Birmingham MD Primary Care Provider [phone] Encounter Details Date Type Department Care Team (Late st Contact Info) Description 07/22/2022 Orders Only [facility] Cardiology [address] [facility] [address] [place] [address] Chang Costello MD [address] [place] [address] Social History Tobacco Use Types Packs/Day Years Used Date Smoking Tobacco: Former Cigarettes Q uit: 1982 Smokeless Tobacco: Never Alcohol Use Standard Drinks/Week Comments No 0 (1 standard drink = 0.6 oz pur e alcohol) Sex and Gender Information Value Date Recorded Sex Assigned at Not on file Legal Sex Male 11:24 AM CHEST PAINTING AND SEALING SUPERVISOR Gender Identity Not on file Sexual [...] on filedocumented in this encounter Care Teams Twitchell Operator Relationship Specialty Start Date End Date Napoleon Birmingham MD PCP - General Family Medicine 03/25/22 03/26/24 documented as of this encounter
--- OUTSIDE RECORDS SUMMARY | 2024-05-25 02:51 | XMS_ITS | Encounter Summary ---
Author Organization [facility] Address [address] [facility] [address] [place] [address] Care Team Providers Care Medical Lab Specialist Name Role Phone Briana Medeiros MD Primary Care Provider [phone] Reason for Visit * Reason Comments Atrial Fibrillation 6 mo f/u Encounter Details Date Type Department Care Team (Late st Contact Info) Description 08/12/2020 2:00 PM SLEEVE IRONER Office Visit [facility] Cardiology [address] [facility] 102 [place] [address] Epi Lake MD [address] [facility] [address] [place] [address] Chronic atrial fibrillation (CMS/HCC) (Primary Dx) Social History Tobacco Use Types Packs/Day Years Used Date Smoking Tobacco: Former Cigarettes Q uit: 1982 Smokeless Tobacco: Never Alcohol Use Standard Drinks/Week Comments No 0 (1 standard drink = 0.6 oz pur e alcohol) Sex and Gender Information Value Date Recorded Sex Assigned at Not on file Legal Sex Male 11:24 AM SLEEVE IRONER Gender Identity Not on file Sexual Orientation Not on file documented as of this encounter Last Filed Vital Signs Vital Sign Reading Time Taken Comments Blood Pressure 100/64 08/12/2020 2:13 PM SLEEVE IRONER Pulse 88 08/12/2020 2:13 PM SLEEVE IRONER Temperature - - Respiratory Rate - - Oxygen Saturation 95% 08/12/2020 2:13 PM SLEEVE IRONER Inhaled Oxygen Concentration - - Weight 112 kg (247 lb) 08/12/2020 2:13 PM SLEEVE IRONER Height 180.3 cm (5' 11 ) 08/12/2020 2:13 PM SLEEVE IRONER Body Mass Index 34.45 08/12/2020 2:13 PM SLEEVE IRONER documented in this encounter Progress Notes * [...] off the ventilator support. Physicians at the [facility] had placed him on amiodarone for simple rate control. After I saw the patient in follow-up in February of 2018 I transitioned him back to standard beta-fe treatment because the chemical engineering teacher at the [facility] did not want him on the amiodarone [...] to advance the metoprolol Epi Lake MD VE IRONER documented in this encounter Plan of Treatment [...] 03/27/2024 added in this encounter Care Teams Medical Lab Specialist Relationship Specialty Start Date End Date Briana Medeiros MD [address] [place] [address] PCP - General 07/06/12 03/24/22 documented as of this encounter
--- OUTSIDE RECORDS SUMMARY | 2024-05-25 02:51 | XMS_ITS | Encounter Summary ---
Author Organization [facility] Address [address] [facility] [address] [place] [address] Care Team Providers Care Control Analyst Name Role Phone Briana Medeiros MD Primary Care Provider [phone] Reason for Visit * Reason Comments Follow-up PER BECCA 2-3 [place]AM WIL[place] Encounter Details Date Type Department Care Team (Late st Contact Info) Description 06/08/2018 1:30 PM DIETETIC TECHNICIAN REGISTERED Office Visit [facility] [address] [place] [address] Epi Lake MD [address] [facility] [address] [facility] [address] [place] [address] Chronic atrial fibrillation (CMS/HCC) (Primary Dx) Social History Tobacco Use Types Packs/Day Years Used Date Smoking Tobacco: Former Smokeless Tobacco: Never Alcohol Use Standard Drinks/Week Comments No 0 (1 standard drink = 0.6 oz pur e alcohol) Sex and Gender Information Value Date Recorded Sex Assigned at Not on file Legal Sex Male 11:24 AM DIETETIC TECHNICIAN REGISTERED Gender Identity Not on file Sexual Orientation Not on file documented as of this encounter Last Filed Vital Signs Vital Sign Reading Time Taken Comments Blood Pressure 108/68 06/08/2018 1:44 PM DIETETIC TECHNICIAN REGISTERED Pulse 66 06/08/2018 1:44 PM DIETETIC TECHNICIAN REGISTERED Temperature - - Respiratory Rate - - Oxygen Saturation 93% 06/08/2018 1:44 PM DIETETIC TECHNICIAN REGISTERED Inhaled Oxygen Concentration - - Weight 95.7 kg (211 lb) 06/08/2018 1:44 PM DIETETIC TECHNICIAN REGISTERED Height 180.3 cm (5' 11 ) 06/08/2018 1:44 PM DIETETIC TECHNICIAN REGISTERED Body Mass Index 29.43 06/08/2018 1:44 PM DIETETIC TECHNICIAN REGISTERED documented in this encounter Progress Notes * [...] off the ventilator support. Physicians at the [facility] had placed him on amiodarone for simple rate control. After I saw the patient in follow-up in February of 2018 I transitioned him back to standard beta-fe treatment because the head mechanic at the [place] did not want him on the amiodarone [...] sleep apnea when he was at the [facility] and is doing well with BiPAP treatment. [...] at 6 month intervals. Epi Lake MD ETIC TECHNICIAN REGISTERED documented in this encounter Plan of Treatment Not on file documented as of this encounter Visit Diagnoses Diagnosis Chronic atrial fibrillation (HCC)- Primary Atrial fibrillation documented in this encounter Care Teams Control Analyst Relationship Specialty Start Date End Date Briana Medeiros MD [address] [place] [address] PCP - General 07/06/12 03/24/22 documented as of this encounter
--- OUTSIDE RECORDS SUMMARY | 2024-05-25 02:51 | XMS_ITS | Encounter Summary ---
Author Organization [facility] Address [address] [facility] [address] [place] [address] Care Team Providers Care Customer Records Division Supervisor Name Role Phone Briana Medeiros MD Primary Care Provider [phone] Reason for Visit * Reason Comments Follow-up 6 mo fu on a-fib Encounter Details Date Type Department Care Team (Late st Contact Info) Description 12/19/2018 8:15 AM CDT Office Visit [facility] [address] [facility] [address] [address] Epi Lake MD [address] [place] [address] Chronic atrial fibrillation (CMS/HCC) (Primary Dx) Social History Tobacco Use Types Packs/Day Years Used Date Smoking Tobacco: Former Smokeless Tobacco: Never Alcohol Use Standard Drinks/Week Comments No 0 (1 standard drink = 0.6 oz pur e alcohol) Sex and Gender Information Value Date Recorded Sex Assigned at Not on file Legal Sex Male 11:24 AM HOG PUSHER Gender Identity Not on file Sexual Orientation [...] the ventilator support. Physicians at the [facility] had placed him on amiodarone for simple rate control. After I saw the patient in follow-up in February of 2018 I transitioned him back to standard beta-fe treatment because the concrete crusher loader operator at the [place] did not want him on the amiodarone [...] documented as of this encounter Care Teams Customer Records Division Supervisor Relationship Specialty Start Date End Date Briana Medeiros MD [address] [place] [address] PCP - General 07/06/12 03/24/22 documented as of this encounter
--- OUTSIDE RECORDS SUMMARY | 2024-05-25 02:51 | XMS_ITS | Encounter Summary ---
Author Organization [facility] Address [address] [facility] [address] [place] [address] Care Team Providers Care Senior Software Qa Analyst Name Role Phone Briana Medeiros MD Primary Care Provider [phone] Encounter Details Date Type Department Care Team (Late st Contact Info) Description 08/13/2020 Telephone [facility] Cardiology [address] [facility] [address] [place] [address] Epi Lake MD [address] [place] [place] [address] Social History Tobacco Use Types Packs/Day Years Used Date Smoking Tobacco: Former Cigarettes Q uit: 1982 Smokeless Tobacco: Never Alcohol Use Standard Drinks/Week Comments No 0 (1 standard drink = 0.6 oz pur e alcohol) Sex and Gender Information Value Date Recorded Sex Assigned at Not on file Legal Sex Male 11:24 AM PLASTIC SHEETS FINISHING SUPERVISOR Gender Identity Not on file Sexual Orientation Not on file documented as of this encounter Miscellaneous Notes * Telephone Encounter - Citlalli Li MA - 08/15/2020 6:01 PM CST Patient and notified and medication list in chart updated. TIC SHEETS FINISHING SUPERVISOR * Telephone Encounter - Epi Lake MD - 08/15/2020 4:08 PM PLASTIC SHEETS FINISHING SUPERVISOR This patient's chart is on my desk with questions regarding his medicines. According to what I see in the chart his primary care physician recently increased his metoprolol to 100 mg daily. I do not want him taking metoprolol with hydrochlorothiazide since he is also taking Bumex. TIC SHEETS FINISHING SUPERVISOR * Telephone Encounter - Citlalli Li MA - 08/15/2020 3:37 PM CST Will forward to Dr. Lake to see if the patient should be taking metoprolol with or without HCTZ 12.5 mg. Bemetanide has already been corrected in the chart. TIC SHEETS FINISHING SUPERVISOR * Telephone Encounter - Johnna Navas [...] mentioned the patient is taking bumetanide differently. [phone] TIC SHEETS FINISHING SUPERVISOR documented in this [...] daily added in this encounter Care Teams Senior Software Qa Analyst Relationship Specialty Start Date End Date Briana Medeiros MD [address] [place] [address] PCP - General 07/06/12 03/24/22 documented as of this encounter
--- OUTSIDE RECORDS SUMMARY | 2024-05-25 02:51 | XMS_ITS | Encounter Summary ---
Author Organization [facility] Address [address] [facility] [address] [place] [address] Care Team Providers Care Principal Systems Engineer Name Role Phone Briana Medeiros MD Primary Care Provider [phone] Encounter Details Date Type Department Care Team (Late st Contact Info) Description 03/09/2021 Orders Only [facility] Cardiology [address] [facility] [address] [place] [address] Provider, MD Claire [address] [place], [place] [id number] Social History Tobacco Use Types Packs/Day Years Used Date Smoking Tobacco: Former Cigarettes Q uit: 1982 Smokeless Tobacco: Never Alcohol Use Standard Drinks/Week Comments No 0 (1 standard drink = 0.6 oz pur e alcohol) Sex and Gender Information Value Date Recorded Sex Assigned at Not on file Legal Sex Male 11:24 AM SAP BW BI DEVELOPER Gender Identity Not on file Sexual [...] on filedocumented in this encounter Care Teams Principal Systems Engineer Relationship Specialty Start Date End Date Briana Medeiros MD [address] [place] [address] PCP - General 07/06/12 03/24/22 documented as of this encounter
--- OUTSIDE RECORDS SUMMARY | 2024-05-25 02:51 | XMS_ITS | Encounter Summary ---
Author Organization [facility] Address [address] [place] [address] Care Team Providers Care Computer Systems Architect Name Role Phone Briana Medeiros MD Primary Care Provider [phone] Encounter Details Date Type Department Care Team (Late st Contact Info) Description 02/22/2019 11:45 AM CDT Lab [address] [address] Social History Tobacco Use Types Packs/Day Years Used Date Smoking Tobacco: Former Smokeless Tobacco: Never Alcohol Use Standard Drinks/Week Comments No 0 (1 standard drink = 0.6 oz pur e alcohol) Sex and Gender Information Value Date Recorded Sex Assigned at Not on file Legal Sex Male 11:24 AM PRODUCTION PLANNER Gender Identity Not on file Sexual Orientation [...] ??mL/min/1.73m2 *Relative to young adult level If -Swedish multiply value by 1.16. Estimated glomerular filtration [...] ORDERABLES Final Res ult Performing Organization Address City/State/[facility] Co de Phone Number CHRIS RAMSEY [address] [place] [address] * (ABNORMAL) Vancomycin, trough (02/22/2019 10:35 AM [...] - 15.0 mcg/mL - Central nervous system (EGG FACTORY WORKER) infection, endocarditis, ??osteomyelitis, pneumonia: ??With aminoglycoside 10.0 [...] Unknown LAB BLOOD ORDERABLES Final Res ult [facility] [address] [place] [address] * (ABNORMAL) Basic metabolic panel, serum (02/22/2019 10:35 AM CDT) Sodium 141 135 - 145 mmol/L [facility] Potassium, sr 4.3 3.6 - 5.2 mmol/L [facility] Chloride 104 97 - 110 mmol/L [facility] CO2 23 22 - 32 mmol/L [facility] Anion gap 14 2 - 15 mmol/L [facility] BUN 9 8 - 25 mg/dL [facility] Creatinine 0.97 0.80 - 1.30 mg/dL [facility] Glucose 121 70 - 199 mg/dL [facility] Comment: Interpretive Data Fasting [...] BLOOD ORDERABLES Final Res ult [facility]RIS RAMSEY [address] [place] [address] documented in this encounter Visit Diagnoses Not on filedocumented in this encounter Care Teams Computer Systems Architect Relationship Specialty Start Date End Date Briana Medeiros MD [address] [place] [address] PCP - General 07/06/12 03/24/22 documented as of this encounter
--- OUTSIDE RECORDS SUMMARY | 2024-05-25 02:51 | XMS_ITS | Encounter Summary ---
Author Organization [facility] Address [address] [facility] [address] [place] [address] Care Team Providers Care Embossing Calender Operator Name Role Phone Briana Medeiros MD Primary Care Provider Reason for Visit * Cardiology (Routine) - Closed Specialty Diagnoses / Procedures Referred By Contsara t Referred To Contact Diagnoses Bradycardia Procedures 24 HR Holter Monitor Briana Medeiros MD [address] [place] [address] Phone: tel: fax: [facility] Referral ID Status Reason Start Date Expiration Date Visits Re quested Visits Authorized [id number] Closed 03/09/2021 04/08/2022 1 1 Encounter Details Date Type Department Care Team (Late st Contact Info) Description 03/11/2021 1:30 PM CDT Ancillary Procedure [facility] Cardiology [address] [facility] [address] [place] [address] Bradycardia Social History Tobacco Use Types Packs/Day Years Used Date Smoking Tobacco: Former Cigarettes Q uit: 1982 Smokeless Tobacco: Never Alcohol Use Standard Drinks/Week Comments No 0 (1 standard drink = 0.6 oz pur e alcohol) Sex and Gender Information Value Date Recorded Sex Assigned at Not on file Legal Sex Male 11:24 AM INFECTION CONTROL PREVENTIONIST Gender Identity Not on file Sexual Orientation [...] Other Narrative 03/16/2021 4:44 PM CDT AMBULATORY EAP CLINICIAN REPORT Patient Name: Mason Keys Date of : 1950 ?? Requesting Provider: ?? Briana Medeiros MD Department Of Natural Resources Officer: ??BONIFACIO Gilbert Date of interpretation: 03/16/21 Type [...] was used to complete this document, therefore, shank faker variances may occur. Aviva Scott MD, [facility] 03/16/21 [facility] Cardiology Procedure Note Aviva Scott MD - 03/16/2021 AMBULATORY EAP CLINICIAN REPORT Patient Name: Mason Keys Date of : 1950 Requesting Provider: Briana Medeiros MD Department Of Natural Resources Officer: BONFIACIO Gilbert Date of interpretation: 03/16/21 Type of [...] software was used to complete this document, therefore,shank faker variances may occur. Aviva Scott MD, [facility] 03/16/21 [facility] Cardiology us Briana Medeiros MD CV CARDIAC SERVICES PROCEDURES F inal Result documented in this encounter Visit Diagnoses Diagnosis Bradycardia Other specified cardiac dysrhythmias documented in this encounter Care Teams Embossing Calender Operator Relationship Specialty Start Date End Date Briana Medeiros MD [address] [place] [address] PCP - General 07/06/12 03/24/22 documented as of this encounter
--- OUTSIDE RECORDS SUMMARY | 2024-05-25 02:51 | XMS_ITS | Encounter Summary ---
Author Organization [facility] Medical [facility] Address [address] [facility] [address] [place] [address] Care Team Providers Care Boilermaker Ship Name Role Phone Briana Medeiros MD Primary Care Provider Encounter Details Date Type Department Care Team (Late st Contact Info) Description 03/16/2021 Telephone [facility] Cardiology [address] [facility] [address] [place] [address] Epi Lake MD [address] [place] [address] Social History Tobacco Use Types Packs/Day Years Used Date Smoking Tobacco: Former Cigarettes Q uit: 1982 Smokeless Tobacco: Never Alcohol Use Standard Drinks/Week Comments No 0 (1 standard drink = 0.6 oz pur e alcohol) Sex and Gender Information Value Date Recorded Sex Assigned at Not on file Legal Sex Male 11:24 AM MAKEUP INSTRUCTOR Gender Identity Not on file Sexual [...] 03/16/2021 11:36 AM CDT Nora called from [employer] to report pt ABNORMAL Holter report has been completed and notated online.Thank you documented in this encounter Plan of Treatment Not on file documented as of this encounter Visit Diagnoses Not on filedocumented in this encounter Care Teams Boilermaker Ship Relationship Specialty Start Date End Date Briana Medeiros MD [address] [place] [address] PCP - General 07/06/12 03/24/22 documented as of this encounter
--- OUTSIDE RECORDS SUMMARY | 2024-05-25 02:51 | XMS_ITS | Encounter Summary ---
Author Organization [facility] Medical [facility] Address [address] [facility] [address] [place] [address] Care Team Providers Care Funeral Director And Embalmer Name Role Phone Briana Medeiros MD Primary Care Provider [phone] Encounter Details Date Type Department Care Team (Late st Contact Info) Description 07/27/2018 Telephone [facility] [address] [address] Epi Lake MD [address] [facility] [address] [address] Social History Tobacco Use Types Packs/Day Years Used Date Smoking Tobacco: Former Smokeless Tobacco: Never Alcohol Use Standard Drinks/Week Comments No 0 (1 standard drink = 0.6 oz pur e alcohol) Sex and Gender Information Value Date Recorded Sex Assigned at Not on file Legal Sex Male 11:24 AM FELT PAD CUTTER Gender Identity Not on file Sexual Orientation Not on file documented as of this encounter Miscellaneous Notes * Telephone Encounter - Amanda Morrison RN - 07/27/2018 1:56 PM FELT PAD CUTTER Spoke with , she is trying to [...] is nothing to worry about anyway. . PAD CUTTER * Telephone Encounter - Jazmin Garcia. - 07/27/2018 1:17 PM CST Please call [facility] PAD CUTTER documented in this encounter Plan of Treatment Not on file documented as of this encounter Visit Diagnoses Not on filedocumented in this encounter Care Teams Funeral Director And Embalmer Relationship Specialty Start Date End Date Briana Medeiros MD [address] [place] [address] PCP - General 07/06/12 03/24/22 documented as of this encounter
--- OUTSIDE RECORDS SUMMARY | 2024-05-25 02:51 | XMS_ITS | Encounter Summary ---
Author Organization [facility] Facility Care Team Providers Care Research Asst Name Role Phone Briana Medeiros MD Primary [...] on file Legal Sex Male 11:24 AM GOLF SALES ASSOCIATE Gender Identity Not on file Sexual Orientation Not on file documented as of this encounter Plan of Treatment Not on file documented as of this encounter Visit Diagnoses Not on filedocumented in this encounter Care Teams Research Asst Relationship Specialty Start Date End Date Briana Medeiros MD [address] [place], [place] [id number] PCP - General 07/06/12 03/24/22 documented as of this encounter
--- OUTSIDE RECORDS SUMMARY | 2024-05-25 02:51 | XMS_ITS | Encounter Summary ---
Author Organization [facility] Healthcare Address [address] [place] [address] Care Team Providers Care Pretzel Cooker Name Role Phone Briana Medeiros MD Primary Care Provider [phone] Encounter Details Date Type Department Care Team (Late st Contact Info) Description 02/22/2019 2:30 PM CDT Lab [address] [address] Social History Tobacco Use Types Packs/Day Years Used Date Smoking Tobacco: Former Smokeless Tobacco: Never Alcohol Use Standard Drinks/Week Comments No 0 (1 standard drink = 0.6 oz pur e alcohol) Sex and Gender Information Value Date Recorded Sex Assigned at Not on file Legal Sex Male 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 60 - 89 mL/min/1.73m2 Mildly to moderately decreased ?45 - 59 mL/min/1.73m2 Moderately to severely decreased ??30 - 44 mL/min/1.73m2 Severely decreased ?15 - 29 mL/min/1.73m2 Kidney Failure ?< 15 ??mL/min/1.73m2 *Relative to young adult level If -Kosovan multiply value by 1.16. Estimated glomerular filtration [...] Unknown LAB BLOOD ORDERABLES Final Res ult [facility] [address] [place] [address] * (ABNORMAL) Differential, auto (02/22/2019 1:35 PM CDT) Neutrophil abs 5.7 1.7 - 6.5 K/cumm [facility] Imm gran abs 0.0 0.0 - 0.1 K/cumm [facility] Lymphocyte abs 0.6(L) 0.8 - 3.3 K/cumm [facility] Monocyte abs 0.9(H) 0.2 - 0.8 K/cumm [facility] Eosinophil abs 0.5 0.0 - 0.5 K/cumm [facility] Basophil abs 0.0 0.0 - 0.1 K/cumm [facility] Neutrophil pct 73.4 % [facility] Comment: Interpretive Data Percent cell count reference ranges are not reported, since discordance with absolute values may lead to misinterpretation of CBC data. Current Interpretive Data was last revised on 2017. Imm gran pct 0.6 % [facility] Comment: Interpretive Data Percent cell count reference ranges are not reported, since discordance with absolute values may lead to misinterpretation of CBC data. Current Interpretive Data was last revised on 2017. Lymphocyte pct 7.5 % [facility] Comment: Interpretive Data Percent cell count reference ranges are not reported, since discordance with absolute values may lead to misinterpretation of CBC data. Current Interpretive Data was last revised on 2017. Monocyte pct 11.4 % [facility] Comment: Interpretive Data Percent cell count reference ranges are not reported, since discordance with absolute values may lead to misinterpretation of CBC data. Current Interpretive Data was last revised on 2017. Eosinophil pct 6.8 % [facility] Comment: Interpretive Data Percent cell count reference ranges are not reported, since discordance with absolute values may lead to misinterpretation of CBC data. Current Interpretive Data was last revised on 2017. Basophil pct 0.3 % [facility] Comment: Interpretive Data Percent cell count reference ranges are not reported, since discordance with absolute values may lead to misinterpretation of CBC data. Current Interpretive Data was last revised on 2017. Blood specimen (specimen) 02/22/2019 1:35 PM CDT 02/22/2019 2:30 PM CDT us Notinfile Unknown LAB BLOOD ORDERABLES Final Res ult Performing Organization Address [facility] de Phone Number [facility] [address] [place] [address] * (ABNORMAL) Protime-INR (02/22/2019 1:35 PM CDT) PT 16.8(H) 9.5 - 13.0 sec [facility] INR 1.44(H) 0.90 - 1.20 [facility] Blood specimen (specimen) 02/22/2019 1:35 PM CDT 02/22/2019 2:30 PM CDT us Notinfile Unknown LAB BLOOD ORDERABLES Final Res ult Performing Organization Address [facility] de Phone Number [facility] [address] [place] [address] * (ABNORMAL) CBC with auto differential (02/22/2019 1:35 PM CDT) WBC 7.8 3.8 - 9.9 K/cumm [facility] Hgb 7.9(L) 13.0 - 17.5 g/dL [facility] Hct 27.5(L) 38.9 - 50.3 % [facility] Plt 245 150 - 400 K/cumm [facility] MPV 12.5(H) 9.1 - 12.3 fL [facility] RBC 2.94(L) 4.30 - 5.80 M/cumm [facility] MCV 93.5 81.3 - 96.4 fL [facility] MCH 26.9(L) 27.1 - 33.3 pg [facility] MCHC 28.7(L) 32.3 - 35.7 g/dL [facility] R[facility] CV 17.2(H) 11.1 - 14.9 % [facility] RDW SD 58.9(H) 35.7 - 48.1 fL [facility] NRBC abs 0.00 0.00 - 0.01 K/cumm [facility] Blood specimen (specimen) 02/22/2019 1:35 PM CDT 02/22/2019 2:30 PM CDT us Notinfile Unknown LAB BLOOD ORDERABLES Final Res ult [facility] [address] [place] [address] * (ABNORMAL) Comprehensive metabolic panel, serum (02/22/2019 1:35 PM CDT) Sodium 140 135 - 145 mmol/L [facility] Potassium, sr 4.4 3.6 - 5.2 mmol/L [facility] Chloride 104 97 - 110 mmol/L [facility] CO2 23 22 - 32 mmol/L [facility] Anion gap 13 2 - 15 mmol/L [facility] BUN 10 8 - 25 mg/dL [facility] Creatinine 1.15 0.80 - 1.30 mg/dL [facility] Glucose 103 70 - 199 mg/dL [facility] Comment: Interpretive Data Fasting glucose >/= [...] ORDERABLES Final Res ult Performing Organization Address [facility] de Phone Number [facility] [address] [place], [place] [id number] * Ammonia (02/22/2019 1:35 PM CDT) Ammonia 28 5 - 50 mcmol/L [facility] Blood specimen (specimen) 02/22/2019 1:35 PM CDT 02/22/2019 2:27 PM CDT us Notinfile Unknown LAB BLOOD ORDERABLES Final Res ult Performing Organization Address [facility] de Phone Number [facility] [address] [place] [address] documented in this encounter Visit Diagnoses Not on filedocumented in this encounter Care Teams Pretzel Cooker Relationship Specialty Start Date End Date Briana Medeiros MD [address] [place] [address] PCP - General 07/06/12 03/24/22 documented as of this encounter
--- OUTSIDE RECORDS SUMMARY | 2024-05-25 02:51 | XMS_ITS | Encounter Summary ---
Author Organization [facility] Healthcare Address [address] [place] [address] Care Team Providers Care Ventilation Equipment Tender Name Role Phone Briana Medeiros MD Primary Care Provider [phone] Encounter Details Date Type Department Care Team (Late st Contact Info) Description 03/22/2019 11:25 AM CDT Lab [address] [address] Social History Tobacco Use Types Packs/Day Years Used Date Smoking Tobacco: Former Smokeless Tobacco: Never Alcohol Use Standard Drinks/Week Comments No 0 (1 standard drink = 0.6 oz pur e alcohol) Sex and Gender Information Value Date Recorded Sex Assigned at Not on file Legal Sex Male 11:24 AM REGISTER OF WILLS Gender Identity Not on file Sexual Orientation [...] ??mL/min/1.73m2 *Relative to young adult level If -Niuean multiply value by 1.16. Estimated glomerular filtration [...] BLOOD ORDERABLES Final Res ult [facility] [address] [place] [address] * Vancomycin, trough (03/22/2019 10:50 [...] - 15.0 mcg/mL - Central nervous system (C.O.D. BILLER) infection, endocarditis, ??osteomyelitis, pneumonia: ??With aminoglycoside 10.0 [...] ORDERABLES Final Res ult Performing Organization Address [facility] de Phone Number [facility] [address] [place] [address] * (ABNORMAL) Protime-INR (03/22/2019 10:50 AM CDT) PT 17.3(H) 9.5 - 13.0 sec [facility] INR 1.48(H) 0.90 - 1.20 [facility] Blood specimen (specimen) 03/22/2019 10:50 AM CDT 03/22/2019 11:23 AM CDT Notinfile Unknown LAB BLOOD ORDERABLES Final Res ult Performing Organization Address [facility] Co de Phone Number [facility] [address] [place] [address] * (ABNORMAL) CBC without differential (03/22/2019 10:50 AM CDT) WBC 7.8 3.8 - 9.9 K/cumm [facility] Hgb 8.4(L) 13.0 - 17.5 g/dL [facility] [...] Unknown LAB BLOOD ORDERABLES Final Res ult [facility] [address] [place] [id number] * (ABNORMAL) Comprehensive metabolic panel, serum (03/22/2019 10:50 AM CDT) Sodium 142 135 - 145 mmol/L [facility] Potassium, sr 4.3 3.6 - 5.2 mmol/L [facility] Chloride 106 97 - 110 mmol/L [facility] CO2 26 22 - 32 mmol/L [facility] Anion gap 10 2 - 15 mmol/L [facility] BUN 13 8 - 25 mg/dL [facility] Creatinine 0.93 0.80 - 1.30 mg/dL [facility] Glucose 98 70 - 199 mg/dL [facility] Comment: Interpretive Data Fasting glucose [...] ORDERABLES Final Res ult Performing Organization Address City/State/[facility] Co de Phone Number [facility] [address] [place] [address] documented in this encounter Visit Diagnoses Not on filedocumented in this encounter Care Teams Ventilation Equipment Tender Relationship Specialty Start Date End Date Briana Medeiros MD [address] [place] [address] PCP - General 07/06/12 03/24/22 documented as of this encounter
--- OUTSIDE RECORDS SUMMARY | 2024-05-25 02:51 | XMS_ITS | Encounter Summary ---
Author Organization [facility] Medical Group Address [address] [facility] [address] [place] [address] Care Team Providers Care Clinical Pharmacy Coordinator Name Role Phone Briana Medeiros MD Primary Care Provider [phone] Reason for Visit * Reason Comments Follow-up 6 mo fu a-fib Encounter Details Date Type Department Care Team (Late st Contact Info) Description 06/26/2019 2:00 PM NON DESTRUCTIVE EVALUATION TECHNICIAN Office Visit [facility] Cardiology [address] [facility] [address] [place] [address] Epi Lake MD [address] [facility] [address] [place] [address] Chronic atrial fibrillation (Primary Dx) Social History Tobacco Use Types Packs/Day Years Used Date Smoking Tobacco: Former Smokeless Tobacco: Never Alcohol Use Standard Drinks/Week Comments No 0 (1 standard drink = 0.6 oz pur e alcohol) Sex and Gender Information Value Date Recorded Sex Assigned at Not on file Legal Sex Male 11:24 AM NON DESTRUCTIVE EVALUATION TECHNICIAN Gender Identity Not on file Sexual Orientation Not on file documented as of this encounter Last Filed Vital Signs Vital Sign Reading Time Taken Comments Blood Pressure 110/62 06/26/2019 2:24 PM NON DESTRUCTIVE EVALUATION TECHNICIAN Pulse 79 06/26/2019 2:24 PM NON DESTRUCTIVE EVALUATION TECHNICIAN Temperature - - Respiratory Rate - - Oxygen Saturation 97% 06/26/2019 2:24 PM NON DESTRUCTIVE EVALUATION TECHNICIAN Inhaled Oxygen Concentration - - Weight 92.1 kg (203 lb) 06/26/2019 2:24 PM NON DESTRUCTIVE EVALUATION TECHNICIAN Height 180.3 cm (5' 11 ) 06/26/2019 2:24 PM NON DESTRUCTIVE EVALUATION TECHNICIAN Body Mass Index 28.31 06/26/2019 2:24 PM NON DESTRUCTIVE EVALUATION TECHNICIAN documented in this encounter Progress Notes * [...] back to standard beta-fe treatment because the fitness consultant at the [place] did not want him on the amiodarone [...] also apparently had hip surgery performed at [facility] in [place]. The patient indicates that someone in the [...] rashes, no suspicious skin lesions noted ASSESSMENT Msaon was seen today for follow-up. Diagnoses and all orders for this visit: Chronic atrial fibrillation PLAN/RECOMMENDATIONS Continue current rate control and anticoagulation regimen and will continue to see him at 6 month intervals. Epi Lake MD DESTRUCTIVE EVALUATION TECHNICIAN documented in this encounter Plan of Treatment [...] 08/15/2020 added in this encounter Care Teams Clinical Pharmacy Coordinator Relationship Specialty Start Date End Date Briana Medeiros MD [address] [place] [address] PCP - General 07/06/12 03/24/22 documented as of this encounter
--- OUTSIDE RECORDS SUMMARY | 2024-05-25 02:51 | XMS_ITS | Encounter Summary ---
Author Organization [facility] Medical Group Address [address] [facility] [address] [place] [address] Care Team Providers Care Advertising Analyst Name Role Phone Briana Medeiros MD Primary Care Provider [phone] Reason for Visit * Reason Comments Follow-up overdue 6 month f/u Atrial Fibrillation chronic Encounter Details Date Type Department Care Team (Late st Contact Info) Description 03/06/2020 9:45 AM CDT Office Visit [facility] Medical Group Cardiology [address] [facility] [address] [place] [address] Epi Lake MD [address] [place] [address] Chronic atrial fibrillation (CMS/HCC) (Primary Dx); Lipid screening Social History Tobacco Use Types Packs/Day Years Used Date Smoking Tobacco: Former Cigarettes Q uit: 1982 Smokeless Tobacco: Never Alcohol Use Standard Drinks/Week Comments No 0 (1 standard drink = 0.6 oz pur e alcohol) Sex and Gender Information Value Date Recorded Sex Assigned at Not on file 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 Physicians at the [facility] had placed him on amiodarone for simple rate control. After I saw the patient in follow-up in February of 2018 I transitioned him back to standard beta-fe treatment because the tobacco checkout clerk at the [place] did not want him on the amiodarone [...] 2 added in this encounter Care Teams Advertising Analyst Relationship Specialty Start Date End Date Briana Medeiros MD [address] [place] [address] PCP - General 07/06/12 03/24/22 documented as of this encounter
--- OUTSIDE RECORDS SUMMARY | 2024-05-25 02:51 | XMS_ITS | Encounter Summary ---
Author Organization [facility] Medical Group Address [address] [facility] [address] [place] [address] Care Team Providers Care Flexboard Operator Name Role Phone Briana Medeiros MD Primary Care Provider [phone] Reason for Visit * Reason Comments Follow-up a-fib Encounter Details Date Type Department Care Team (Late st Contact Info) Description 02/21/2018 11:00 AM CDT Office Visit [facility] [address] [place] [address] Epi Lake MD [address] 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. 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 At no time was there any new cardiac problem identified he is in atrial fibrillation chronically. [facility] any evidence of infectious vegetations on any of his cardiac valves. Somewhat surprisingly and a slightly inappropriately the the patient's indicates that the hepatology specialist at [facility] wants my opinion as to why [...] feedback or involvement from the physiciansat the [facility] where he received all this care so [...] 0 added in this encounter Care Teams Flexboard Operator Relationship Specialty Start Date End Date Briana Medeiros MD [address] [place] [address] PCP - General 07/06/12 03/24/22 documented as of this encounter
--- OUTSIDE RECORDS SUMMARY | 2024-05-25 02:51 | XMS_ITS | Encounter Summary ---
Author Organization [facility] Medical Group Address [address] [facility] [address] [place] [address] Care Team Providers Care Mobile Development Manager Name Role Phone Briana Medeiros MD Primary Care Provider Reason for Visit * Reason Comments Follow-up No problems Encounter Details Date Type Department Care Team (Late st Contact Info) Description 03/13/2018 2:00 PM CDT Office Visit [facility] [address] [address] Bruna Grant NP [address] [facility] [address] [facility] 102 [place] [address] Chronic atrial fibrillation (CMS/HCC) (Primary [...] on file 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 At no time was there any new cardiac problem identified he is in atrial fibrillation chronically. An esophageal echo was done at [facility] that did not show any evidence of infectious vegetations on any of his cardiac valves. Somewhat surprisingly and a slightly inappropriately the the patient's indicates that the hepatology specialist at [facility] wants my opinion as [...] or involvement from the physicians at the [facility] where he received all this care so we could make these decisions in a more informed fashion. I did however review with them the long standing risks and long-term toxicities of chronic amiodarone exposure which I would like to avoid. 03/13/2018 follow-up with ALLERGIST/MD: He returns to follow-up on his heart [...] This note is dictated and transcribed using [employer]. Drywall Taper variancesmay occur. Despite proofreading, typographical errors may [...] 03/27/2024 added in this encounter Care Teams Mobile Development Manager Relationship Specialty Start Date End Date Briana Medeiros MD [address] [place] [address] PCP - General 07/06/12 03/24/22 documented as of this encounter
--- OUTSIDE RECORDS SUMMARY | 2024-05-25 02:51 | XMS_ITS | Encounter Summary ---
Author Organization [facility] Address [address] [place] [address] Care Team Providers Care Business Performance Analyst Name Role Phone Briana Medeiros MD Primary Care Provider [phone] Encounter Details Date Type Department Care Team (Late st Contact Info) Description 04/04/[address] [facility] Cardiology [address] [place] [address] Parth Alonso MD [address] [address] Social History Tobacco Use Types Packs/Day Years Used Date Smoking Tobacco: Former Smokeless Tobacco: Never Alcohol Use Standard Drinks/Week Comments No 0 (1 standard drink = 0.6 oz pur e alcohol) Sex and Gender Information Value Date Recorded Sex Assigned at Not on file Legal Sex Male 11:24 AM PRE CODER Gender Identity Not on file Sexual Orientation [...] on filedocumented in this encounter Care Teams Business Performance Analyst Relationship Specialty Start Date End Date Briana Medeiros MD [address] [place] [address] PCP - General 07/06/12 03/24/22 documented as of this encounter
--- OUTSIDE RECORDS SUMMARY | 2024-05-25 02:51 | XMS_ITS | Encounter Summary ---
Author Organization [facility] Address [address] [place] [address] Care Team Providers Care Principal Solutions Architect Name Role Phone Briana Medeiros MD Primary Care Provider [phone] Reason for Visit * Reason Comments Follow-up 7 mo f/u Atrial Fibrillation Encounter Details Date Type Department Care Team (Late st Contact Info) Description 03/19/2021 10:15 AM CDT Office Visit [facility] Cardiology [address] [facility] [address] [place] [address] Epi [place] MD [address] [facility] [address] [place] [address] Chronic atrial fibrillation (HCC) (Primary [...] on file Legal Sex Male 11:24 AM GRADUATE STUDIES 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 Physicians at the [facility] had placed him on amiodarone for simple rate control. After I saw the patient in follow-up in February of 2018 I transitioned him back to standard beta-fe treatment because the die drawing checker at the [place] did not want him on the amiodarone [...] 01/27/2021 added in this encounter Care Teams Principal Solutions Architect Relationship Specialty Start Date End Date Braina Medeiros MD [address] [place] [address] PCP - General 07/06/12 03/24/22 documented as of this encounter
--- OUTSIDE RECORDS SUMMARY | 2024-05-25 02:51 | XMS_ITS | Encounter Summary ---
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
--- OUTSIDE RECORDS SUMMARY | 2024-05-25 02:52 | XMS_ITS | Encounter Summary ---
Author Organization [facility] Healthcare Address [address] [place] [address] Care Team Providers Care Production Control Planner Name Role Phone Briana Medeiros MD Primary Care Provider [phone] Encounter Details Date Type Department Care Team (Latest Contact Info) Description 09/26/2017 8:00 AM CDT - 09/26/2017 11:59 PM CDT Hospital Encounter [facility] - Imaging [address] [place] [address] Discharge Disposition: Discharge to home or self care Social History Tobacco Use Types Packs/Day Years Used Date Smoking Tobacco: Never Assessed Alcohol Use Standard Drinks/Week Comments No 0 (1 standard drink = 0.6 oz pur e alcohol) Sex and Gender Information Value Date Recorded Sex Assigned at Not on file Legal Sex Male 11:24 AM SANE NURSE Gender Identity Not on file Sexual Orientation [...] on filedocumented in this encounter Care Teams Production Control Planner Relationship Specialty Start Date End Date Briana Medeiros MD [address] [place] [address] PCP - General 07/06/12 03/24/22 documented as of this encounter
--- OUTSIDE RECORDS SUMMARY | 2024-05-25 02:52 | XMS_ITS | Encounter Summary ---
Author Organization [facility] Healthcare Address [address] [place] [address] Care Team Providers Care Machinist Wood Name Role Phone Briana Medeiros MD Primary Care Provider [phone] Encounter Details Date Type Department Care Team (Latest Contact Info) Description 09/28/2017 6:45 AM CDT - 09/28/2017 11:59 PM CDT Hospital Encounter [facility] - Imaging [address] [place] [address] Discharge Disposition: Discharge to home or self care Social History Tobacco Use Types Packs/Day Years Used Date Smoking Tobacco: Never Assessed Alcohol Use Standard Drinks/Week Comments No 0 (1 standard drink = 0.6 oz pur e alcohol) Sex and Gender Information Value Date Recorded Sex Assigned at Not on file Legal Sex Male 11:24 AM CURATOR OF EDUCATION Gender Identity Not on file Sexual Orientation [...] on filedocumented in this encounter Care Teams Machinist Wood Relationship Specialty Start Date End Date Briana Medeiros MD [address] [place] [address] PCP - General 07/06/12 03/24/22 documented as of this encounter
--- OUTSIDE RECORDS SUMMARY | 2024-05-25 02:52 | XMS_ITS | Encounter Summary ---
Author Organization [facility] Address [address] [place] [address] Care Team Providers Care Dredge Or Barge Shore Hand Name Role Phone Briana Medeiros MD Primary Care Provider [phone] Napoleon Birmingham MD Primary Care Provider [phone] Cleo Funk DO Primary Care Provider + Encounter Details Date Type Department Care Team (Late st Contact Info) Description 10/24/2017 Telephone [facility] Physical Medicine and Rehabilitation [facility] [place] [address] Katya Oliver, DONTAE Social History Tobacco Use Types Packs/Day Years Used Date Smoking Tobacco: Former Smokeless Tobacco: Never Alcohol Use Standard Drinks/Week Comments No 0 (1 standard drink = 0.6 oz pur e alcohol) Sex and Gender Information Value Date Recorded Sex Assigned at Not on file 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
--- OUTSIDE RECORDS SUMMARY | 2024-05-25 02:52 | XMS_ITS | Encounter Summary ---
Author Organization [facility] Healthcare Address [address] [place] [address] Care Team Providers Care Painter Ski Edge Name Role Phone Briana Medeiros MD Primary Care Provider [phone] Encounter Details Date Type Department Care Team (Latest Contact Info) Description 10/19/2017 8:01 AM CDT - 10/19/2017 11:59 PM CDT Hospital Encounter [facility] - Imaging [address] [place] [address] Discharge Disposition: Discharge to home or self care Social History Tobacco Use Types Packs/Day Years Used Date Smoking Tobacco: Never Assessed Alcohol Use Standard Drinks/Week Comments No 0 (1 standard drink = 0.6 oz pur e alcohol) Sex and Gender Information Value Date Recorded Sex Assigned at Not on file 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
--- OUTSIDE RECORDS SUMMARY | 2024-05-25 02:52 | XMS_ITS | Encounter Summary ---
Author Organization [facility] Address [address] [place] [address] Care Team Providers Care Soaker Meat Name Role Phone Briana Medeiros MD Primary Care Provider [phone] Encounter Details Date Type Department Care Team (Late st Contact Info) Description 07/15/2017 Orders Only [facility] Cardiology [address] [facility] [address] [place] [address] Provider, MD Claire [address] [place] [address] Social History Tobacco Use Types Packs/Day Years Used Date Smoking Tobacco: Never Assessed Alcohol Use Standard Drinks/Week Comments No 0 (1 standard drink = 0.6 oz pur e alcohol) Sex and Gender Information Value Date Recorded Sex Assigned at Not on file 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
--- OUTSIDE RECORDS SUMMARY | 2024-05-25 02:52 | XMS_ITS | Encounter Summary ---
Author Organization [facility] Healthcare Address [address] [place] [address] Care Team Providers Care Welfare Eligibility Worker Name Role Phone Briana Medeiros MD Primary Care Provider [phone] Encounter Details Date Type Department Care Team (Latest Contact Info) Description 10/22/2017 10:11 AM CDT - 10/22/2017 11:59 PM CDT Hospital Encounter [facility] - Imaging [address] [place] [address] Александр Espino Jr., MD [address] [facility] [address] [place], [place] [id number] Discharge Disposition: Discharge to home or self care Social History Tobacco Use Types Packs/Day Years Used Date Smoking Tobacco: Never Assessed Alcohol Use Standard Drinks/Week Comments No 0 (1 standard drink = 0.6 oz pur e alcohol) Sex and Gender Information Value Date Recorded Sex Assigned at Not on file 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
--- OUTSIDE RECORDS SUMMARY | 2024-05-25 02:52 | XMS_ITS | Encounter Summary ---
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 Name Role Phone Briana Medeiros MD Primary Care Provider [phone] Encounter Details Date Type Department Care Team (Latest Contact Info) Description 09/19/2017 3:11 PM CDT - 10/24/2017 6:10 PM CDT Hospital Encounter [facility] [address] [place] [address] Amy Espino Jr., MD [address] [facility] [address] [place] [address] Respiratory failure ([facility]) Discharge Disposition: Discharge to an IP Rehab facility Social History Tobacco Use Types Packs/Day Years Used Date Smoking Tobacco: Former Smokeless Tobacco: Never Alcohol Use Standard Drinks/Week Comments No 0 (1 standard drink = 0.6 oz pur e alcohol) Sex and Gender Information Value Date Recorded Sex Assigned at Not on file 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 male with a medical diagnosis of Respiratory Failure and whose probable impairment code for inpatient rehabilitation is: Debility The following information was gathered for consideration and maintenance in the medical record to substantiate medical necessity for IRF level of care. Patient is currently at [facility] . 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 Payor Source: Primary: Medicare [id number] Secondary:[employer] [facility], Policy number: [id number] Case discussed with Dr Burt and Laura Shore [facility] on 10/24/17. Appropriateness for admission to the [...] long-term oral anticoagulation;hypertension, diabetes who presented to [facility] with respiratory failure. He orginally presented to an outside hospital on 07/29/17 for an L1 debridement associate d with an abscess. His subsequent medical course was complicated my MRSA empyema requiring chest tube placement with prolonged antibiotics, trachestomy for delayed weaning, PEG placement and mucus plugging. He has been doing very well at [facility]. He is participating in limited therapy. He [...] COPD, Sepsis, Recent trach, Post op infection Freeman Suicide Severity Rating Scale: Allergies: Allergies Allergen [...] Vocational Status: Retired for age Home Setting: [facility] level home Prehospital Lives With: Spouse;Adult [...] and Family Goals: To return home at [facility] Cosigned by Rachna Burt MD at 10/24/2017 [...] the intensive Inpatient rehabilitation program offered at [facility] . documented in this encounter Plan [...] CDT) eGFR 90 mL/min/1.7 3 m2 [facility] Comment: Interpretive Data Reference Interval Normal ?>/= 90 mL/min/1.73m2 Mildly decreased* ? 60 - 89 mL/min/1.73m2 Mildly to moderately decreased ?45 - 59 mL/min/1.73m2 Moderately to severely decreased ??30 - 44 mL/min/1.73m2 Severely decreased ?15 - 29 mL/min/1.73m2 Kidney Failure ?< 15 ??mL/min/1.73m2 *Relative to young adult level If -Albanian multiply value by 1.16. Estimated glomerular filtration [...] MD LAB BLOOD ORDERABLES Fi nal Result [facility] [address] [place] [address] * (ABNORMAL) Comprehensive metabolic panel (10/24/2017 11:00 AM CDT) Sodium 137 135 - 145 mmol/L [facility] Potassium, pl 4.6 3.3 - 4.9 mmol/L [facility] CO2 32 22 - 32 mmol/L [facility] BUN 25 8 - 25 mg/dL [facility] Glucose 105 70 - 199 mg/dL [facility] Comment: Interpretive Data Fasting glucose [...] 2017. Creatinine 0.83 0.80 - 1.30 mg/dL [facility] Calcium 9.1 8.5 - 10.3 mg/dL [facility] Chloride 95(L) 97 - 110 mmol/L [facility] Albumin 3.3(L) 3.5 - 5.0 g/dL [facility] AST 39 10 - 50 Units/L [facility] ALT 84(H) 7 - 55 Units/L [facility] Alk phos 136(H) 40 - 130 Units/L [facility] Bilirubin, total 0.5 0.1 - 1.2 mg/dL [facility] Protein, pl 5.7(L) 6.5 - 8.5 g/dL [facility] Anion gap 10 2 - 15 mmol/L [facility] Blood specimen (specimen) 10/24/2017 11:00 AM CDT 10/24/2017 11:33 AM CDT Narrative [facility] - 10/24/2017 12:00 PM CDT us Amy Espino Jr., MD LAB BLOOD ORDERABLES Fi nal Result [facility] [address] [place] [address] * (ABNORMAL) Differential, auto (10/24/2017 11:00 AM CDT) Neutrophil abs 10.5(H) 1.7 - 6.5 K/cumm [facility] Imm gran abs 0.1 0.0 - 0.1 K/cumm [facility] Lymphocyte abs 0.5(L) 0.8 - 3.3 K/cumm [facility] Monocyte abs 1.0(H) 0.2 - 0.8 K/cumm [facility] Eosinophil abs 0.0 0.0 - 0.5 K/cumm [facility] Basophil abs 0.0 0.0 - 0.1 K/cumm [facility] Neutrophil pct 86.2 % [facility] Comment: Interpretive Data Percent cell count reference ranges are not reported, since discordance with absolute values may lead to misinterpretation of CBC data. Current Interpretive Data was last revised on 2017. Imm gran pct 1.2 % [facility] Comment: Interpretive Data Percent cell count reference ranges are not reported, since discordance with absolute values may lead to misinterpretation of CBC data. Current Interpretive Data was last revised on 2017. Lymphocyte pct 4.3 % [facility] Comment: Interpretive Data Percent cell count reference ranges are not reported, since discordance with absolute values may lead to misinterpretation of CBC data. Current Interpretive Data was last revised on 2017. Monocyte pct 8.0 % [facility] Comment: Interpretive Data Percent cell count reference ranges are not reported, since discordance with absolute values may lead to misinterpretation of CBC data. Current Interpretive Data was last revised on 2017. Eosinophil pct 0.2 % [facility] Comment: Interpretive Data Percent cell count reference ranges are not reported, since discordance with absolute values may lead to misinterpretation of CBC data. Current Interpretive Data was last revised on 2017. Basophil pct 0.1 % [facility] Comment: Interpretive Data Percent cell count reference ranges are not reported, since discordance with absolute values may lead to misinterpretation of CBC data. Current Interpretive Data was last revised on 2017. Blood specimen (specimen) 10/24/2017 11:00 AM CDT 10/24/2017 11:33 AM CDT Narrative [facility] - 10/24/2017 11:41 AM CDT Amy Espino Jr., MD LAB BLOOD ORDERABLES Fi nal Result [facility] [address] [place] [address] * (ABNORMAL) CBC with auto differential (10/24/2017 11:00 AM CDT) WBC 12.1(H) 3.8 - 9.9 K/cumm [facility] RBC 3.26(L) 4.30 - 5.80 M/cumm [facility] Hgb 9.4(L) 13.0 - 17.5 g/dL [facility] Hct 31.2(L) 38.9 - 50.3 % [facility] MCV 95.7 81.3 - 96.4 fL [facility] MCH 28.8 27.1 - 33.3 pg [facility] MCHC 30.1(L) 32.3 - 35.7 g/dL [facility] RDW CV 18.0(H) 11.1 - 14.9 % [facility] RDW SD 63.1(H) 35.7 - 48.1 fL [facility] Plt 199 150 - 400 K/cumm [facility] MPV 11.9 9.1 - 12.3 fL [facility] NRBC abs 0.00 0.00 - 0.01 K/cumm [facility] Blood specimen (specimen) 10/24/2017 11:00 AM CDT 10/24/2017 11:33 AM CDT Narrative [facility] - 10/24/2017 11:41 AM CDT us Amy Espino Jr., MD LAB BLOOD ORDERABLES Fi nal Result [facility] [address] [place] [address] * DISCHARGE LABORATORY CUMULATIVE REPORT (10/24/2017 12:00 [...] CDT) pH, Art 7.39 7.35 - 7.45 [facility] PCO2, Arterial 61(H) 35 - 45 mmHg [facility] PO2, Arterial 73(L) 83 - 108 mmHg [facility] BE, art 10 mmol/L [facility] Comment: Interpretive Data No Reference Range Established Current Interpretive Data was last revised on 2017 O2 Sat Art (Calculated) 94 94 - 98 % [facility] HCO3 Art (Calculated) 37(H) 20 - 30 mmol/L [facility] Blood specimen (specimen) 10/20/2017 4:30 AM CDT 10/20/2017 5:07 AM CDT Narrative [facility] - 10/20/2017 5:10 AM CDT us Amy Espino Jr., MD LAB BLOOD ORDERABLES Fi nal Result [facility] [address] [place] [address] * XR Chest 1 Vw (10/19/2017 10:35 [...] CDT) pH, Art 7.37 7.35 - 7.45 [facility] PCO2, Arterial 67(H) 35 - 45 mmHg [facility] PO2, Arterial 97 83 - 108 mmHg [facility] BE, art 11 mmol/L [facility] Comment: Interpretive Data No Reference Range Established Current Interpretive Data was last revised on 2017 O2 Sat Art (Calculated) 97 94 - 98 % [facility] HCO3 Art (Calculated) 39(H) 20 - 30 mmol/L [facility] Blood specimen (specimen) 10/19/2017 5:05 AM CDT 10/19/2017 5:30 AM CDT Narrative [facility] - 10/19/2017 5:38 AM CDT us Amy Espino Jr., MD LAB BLOOD ORDERABLES Fi nal Result Performing Organization Address [facility] Co de Phone Number [facility] [address] [place] [address] * eGFR (10/17/2017 3:58 AM CDT) eGFR 96 mL/min/1.7 3 m2 [facility] Comment: Interpretive Data Reference Interval Normal ?>/= 90 mL/min/1.73m2 Mildly decreased* ? 60 - 89 mL/min/1.73m2 Mildly to moderately decreased ?45 - 59 mL/min/1.73m2 Moderately to severely decreased ??30 - 44 mL/min/1.73m2 Severely decreased ?15 - 29 mL/min/1.73m2 Kidney Failure ?< 15 ??mL/min/1.73m2 *Relative to young adult level If -Albanian multiply value by 1.16. Estimated glomerular filtration [...] AM CDT 10/17/2017 4:10 AM CDT [facility] - 10/17/2017 4:37 AM CDT us Amy Espino Jr., MD LAB BLOOD ORDERABLES Fi nal Result Performing Organization Address [facility] Co de Phone Number [facility] [address] Department [place] [address] * (ABNORMAL) Renal function panel (10/17/2017 3:58 AM CDT) Sodium 138 135 - 145 mmol/L [facility] Potassium, pl 5.1(H) 3.3 - 4.9 mmol/L [facility] Chloride 95(L) 97 - 110 mmol/L [facility] CO2 36(H) 22 - 32 mmol/L [facility] Anion gap 7 2 - 15 mmol/L [facility] Glucose 125 70 - 199 mg/dL [facility] Comment: Interpretive Data Fasting glucose [...] 2017. BUN 38(H) 8 - 25 mg/dL [facility] Creatinine 0.71(L) 0.80 - 1.30 mg/dL [facility] Calcium 8.8 8.5 - 10.3 mg/dL [facility] Phosphorus, pl 2.9 2.3 - 4.5 mg/dL [facility] Albumin 3.1(L) 3.5 - 5.0 g/dL [facility] Blood specimen (specimen) 10/17/2017 3:58 AM CDT 10/17/2017 3:59 AM CDT Narrative [facility] - 10/17/2017 4:37 AM CDT Amy Espino Jr., MD LAB BLOOD ORDERABLES Fi nal Result [facility] [address] [place] [address] * (ABNORMAL) Differential, auto (10/17/2017 3:58 AM CDT) Neutrophil abs 8.4(H) 1.7 - 6.5 K/cumm [facility] Imm gran abs 0.1 0.0 - 0.1 K/cumm [facility] Lymphocyte abs 0.2(L) 0.8 - 3.3 K/cumm [facility] Monocyte abs 0.3 0.2 - 0.8 K/cumm [facility] Eosinophil abs 0.0 0.0 - 0.5 K/cumm [facility] Basophil abs 0.0 0.0 - 0.1 K/cumm [facility] Neutrophil pct 92.6 % [facility] Comment: Interpretive Data Percent cell count reference ranges are not reported, since discordance with absolute values may lead to misinterpretation of CBC data. Current Interpretive Data was last revised on 2017. Imm gran pct 1.0 % [facility] Comment: Interpretive Data Percent cell count reference ranges are not reported, since discordance with absolute values may lead to misinterpretation of CBC data. Current Interpretive Data was last revised on 2017. Lymphocyte pct 2.8 % [facility] Comment: Interpretive Data Percent cell count reference ranges are not reported, since discordance with absolute values may lead to misinterpretation of CBC data. Current Interpretive Data was last revised on 2017. Monocyte pct 3.5 % [facility] Comment: Interpretive Data Percent cell count reference ranges are not reported, since discordance with absolute values may lead to misinterpretation of CBC data. Current Interpretive Data was last revised on 2017. Eosinophil pct 0.0 % [facility] Comment: Interpretive Data Percent cell count reference ranges are not reported, since discordance with absolute values may lead to misinterpretation of CBC data. Current Interpretive Data was last revised on 2017. Basophil pct 0.1 % [facility] Comment: Interpretive Data Percent cell count reference ranges are not reported, since discordance with absolute values may lead to misinterpretation of CBC data. Current Interpretive Data was last revised on 2017. Blood specimen (specimen) 10/17/2017 3:58 AM CDT 10/17/2017 3:58 AM CDT Narrative [facility] - 10/17/2017 4:16 AM CDT Amy Espino Jr., MD LAB BLOOD ORDERABLES Fi nal Result Performing Organization Address [facility]/ZIP Co de Phone Number [facility] [address] Department [employer] [facility] [place] [address] * (ABNORMAL) CBC with auto differential (10/17/2017 3:58 AM CDT) [facility] WBC 9.0 3.8 - 9.9 K/cumm [facility] RBC 3.02(L) 4.30 - 5.80 M/cumm [facility] Hgb 8.7(L) 13.0 - 17.5 g/dL [facility] Hct 30.0(L) 38.9 - 50.3 % [facility] MCV 99.3(H) 81.3 - 96.4 fL [facility] MCH 28.8 27.1 - 33.3 pg [facility] MCHC 29.0(L) 32.3 - 35.7 g/dL [facility] RDW CV 17.9(H) 11.1 - 14.9 % [facility] RDW SD 65.2(H) 35.7 - 48.1 fL [facility] Plt 233 150 - 400 K/cumm [facility] MPV 12.0 9.1 - 12.3 fL [facility] NRBC abs 0.00 0.00 - 0.01 K/cumm [facility] Blood specimen (specimen) 10/17/2017 3:58 AM CDT 10/17/2017 3:58 AM CDT Narrative [facility] - 10/17/2017 4:16 AM CDT Amy Espino Jr., MD LAB BLOOD ORDERABLES Fi nal Result Performing Organization Address [facility]/ZIP Co de Phone Number [facility] [address] Department [employer] [facility] [place] [address] * (ABNORMAL) Blood gas, arterial (10/16/2017 8:15 AM CDT) pH, Art 7.47(H) 7.35 - 7.45 [facility] PCO2, Arterial 48(H) 35 - 45 mmHg [facility] PO2, Arterial 58(L) 83 - 108 mmHg [facility] BE, art 10 mmol/L [facility] Comment: Interpretive Data No Reference Range Established Current Interpretive Data was last revised on 2017 O2 Sat Art (Calculated) 92(L) 94 - 98 % [facility] HCO3 Art (Calculated) 35(H) 20 - 30 mmol/L [facility] Blood specimen (specimen) 10/16/2017 8:15 AM CDT 10/16/2017 8:31 AM CDT Narrative [facility] - 10/16/2017 8:34 AM CDT Amy Espino Jr., MD LAB BLOOD ORDERABLES Fi nal Result [facility] [address] Department [place] [address] * XR Chest 1 Vw (10/16/2017 8:14 [...] AM CDT) eGFR 100 mL/min/1.7 3 m2 [facility] Comment: Interpretive Data Reference Interval Normal ?>/= 90 mL/min/1.73m2 Mildly decreased* ? 60 - 89 mL/min/1.73m2 Mildly to moderately decreased ?45 - 59 mL/min/1.73m2 Moderately to severely decreased ??30 - 44 mL/min/1.73m2 Severely decreased ?15 - 29 mL/min/1.73m2 Kidney Failure ?< 15 ??mL/min/1.73m2 *Relative to young adult level If -Albanian multiply value by 1.16. Estimated glomerular filtration [...] AM CDT 10/15/2017 4:59 AM CDT [facility] - 10/15/2017 5:31 AM CDT Amy Espino Jr., MD LAB BLOOD ORDERABLES Fi nal Result [facility] [address] [place] [address] * (ABNORMAL) Renal function panel (10/15/2017 4:59 AM CDT) Sodium 139 135 - 145 mmol/L [facility] Potassium, pl 5.3(H) 3.3 - 4.9 mmol/L [facility] Chloride 97 97 - 110 mmol/L [facility] CO2 35(H) 22 - 32 mmol/L [facility] Anion gap 7 2 - 15 mmol/L [facility] Glucose 156 70 - 199 mg/dL [facility] Comment: Interpretive Data Fasting glucose [...] 2017. BUN 36(H) 8 - 25 mg/dL [facility] Creatinine 0.65(L) 0.80 - 1.30 mg/dL [facility] Calcium 9.1 8.5 - 10.3 mg/dL [facility] Phosphorus, pl 2.1(L) 2.3 - 4.5 mg/dL [facility] Albumin 3.1(L) 3.5 - 5.0 g/dL [facility] Blood specimen (specimen) 10/15/2017 4:59 AM CDT 10/15/2017 4:59 AM CDT Narrative [facility] - 10/15/2017 5:31 AM CDT Amy Espino Jr., MD LAB BLOOD ORDERABLES Fi nal Result Performing Organization Address [facility]/ZIP Co de Phone Number [facility] [address] Department [place] [address] * (ABNORMAL) Aerobic culture and gram stain (10/13/2017 5:15 PM CDT) Direct Specimen Exam Stain: <10 Epithelial cells/lf, <25 WBC's/lf , Moderate Gram Negative Bacilli , Few Gram Positive Cocci [facility] Report Final Report: Moderate growth of: Stenotrophomonas maltophilia This is a multi-drug resistant organism. Inpatients require contact isolation. Multi-drug resistant organism result called to and read back by Era Small on 10/15/2017 12:26:50 by TPT Moderate Growth Normal robert (.) [facility] Organism STENOTROPHOMONAS MALTOPHILIA [facility] Sputum (Sputum) 10/13/2017 5 :15 PM CDT 10/13/2017 5:38 PM CDT Narrative [facility] - 10/16/2017 12:26 PM CDT Organism Antibiotic Method Susceptibility Stenotrophomonas maltophilia Levofloxacin (UMESH) INTERPRETATION Susceptible Stenotrophomonas maltophilia Trimethoprim with Sulfamethoxazole (UMESH) INTERPRETATION Susceptible Amy Espino Jr., MD LAB MICROBIOLOGY - GENE RAL ORDERABLES Final Result Performing Organization Address [facility] Co de Phone Number [facility] [address] Department [place] [address] * XR Chest 1 Vw (10/13/2017 7:47 [...] CDT) NT-proBNP 3,033(H) 0 - 125 pg/mL [facility] Comment:On August 31, 2016 BN P was replaced with NT-proBNP. If you have any questions, please contact the Laboratory at [phone]. Blood specimen (specimen) 10/12/2017 1:15 PM CDT 10/12/2017 12:49 PM CDT Narrative [facility] - 10/12/2017 1:56 PM CDT Amy Espino Jr., MD LAB BLOOD ORDERABLES Fi nal Result [facility] [address] Department [place] [address] * Procalcitonin (10/12/2017 12:35 PM CDT) Procalcitonin 0.11 0.02 - 0.80 ng/mL [facility] Blood specimen (specimen) 10/12/2017 12:35 PM CDT 10/12/2017 12:48 PM CDT Narrative [facility] - 10/12/2017 1:39 PM CDT us Amy Espino Jr., MD LAB BLOOD ORDERABLES Fi nal Result Performing Organization Address [facility] Co de Phone Number [facility] [address] [employer] [address] [place] [address] * eGFR (10/12/2017 5:18 AM CDT) [facility] eGFR 101 mL/min/1.7 3 m2 [facility] Comment: Interpretive Data Reference Interval Normal ?>/= 90 mL/min/1.73m2 Mildly decreased* ? 60 - 89 mL/min/1.73m2 Mildly to moderately decreased ?45 - 59 mL/min/1.73m2 Moderately to severely decreased ??30 - 44 mL/min/1.73m2 Severely decreased ?15 - 29 mL/min/1.73m2 Kidney Failure ?< 15 ??mL/min/1.73m2 *Relative to young adult level If -Albanian multiply value by 1.16. Estimated glomerular filtration [...] AM CDT 10/12/2017 5:35 AM CDT [facility] - 10/12/2017 6:04 AM CDT us Amy Espino Jr., MD LAB BLOOD ORDERABLES Fi nal Result Performing Organization Address [facility] Co de Phone Number [facility] [address] Department [place] [address] * (ABNORMAL) Renal function panel (10/12/2017 5:18 AM CDT) Sodium 137 135 - 145 mmol/L [facility] Potassium, pl 4.2 3.3 - 4.9 mmol/L [facility] Chloride 94(L) 97 - 110 mmol/L [facility] CO2 32 22 - 32 mmol/L [facility] Anion gap 11 2 - 15 mmol/L [facility] Glucose 103 70 - 199 mg/dL [facility] Comment: Interpretive Data Fasting glucose [...] 2017. BUN 20 8 - 25 mg/dL [facility] Creatinine 0.63(L) 0.80 - 1.30 mg/dL [facility] Calcium 8.8 8.5 - 10.3 mg/dL [facility] Phosphorus, pl 3.2 2.3 - 4.5 mg/dL [facility] Albumin 3.0(L) 3.5 - 5.0 g/dL [facility] Blood specimen (specimen) 10/12/2017 5:18 AM CDT 10/12/2017 5:25 AM CDT Narrative [facility] - 10/12/2017 6:04 AM CDT Amy Espino Jr., MD LAB BLOOD ORDERABLES Fi nal Result [facility] [address] [place] [address] * (ABNORMAL) Differential, auto (10/12/2017 5:18 AM CDT) Neutrophil abs 6.3 1.7 - 6.5 K/cumm [facility] Imm gran abs 0.0 0.0 - 0.1 K/cumm [facility] Lymphocyte abs 0.6(L) 0.8 - 3.3 K/cumm [facility] Monocyte abs 0.8 0.2 - 0.8 K/cumm [facility] Eosinophil abs 0.4 0.0 - 0.5 K/cumm [facility] Basophil abs 0.0 0.0 - 0.1 K/cumm [facility] Neutrophil pct 77.2 % [facility] Comment: Interpretive Data Percent cell count reference ranges are not reported, since discordance with absolute values may lead to misinterpretation of CBC data. Current Interpretive Data was last revised on 2017. Imm gran pct 0.4 % [facility] Comment: Interpretive Data Percent cell count reference ranges are not reported, since discordance with absolute values may lead to misinterpretation of CBC data. Current Interpretive Data was last revised on 2017. Lymphocyte pct 7.3 % [facility] Comment: Interpretive Data Percent cell count reference ranges are not reported, since discordance with absolute values may lead to misinterpretation of CBC data. Current Interpretive Data was last revised on 2017. Monocyte pct 9.5 % [facility] Comment: Interpretive Data Percent cell count reference ranges are not reported, since discordance with absolute values may lead to misinterpretation of CBC data. Current Interpretive Data was last revised on 2017. Eosinophil pct 5.2 % [facility] Comment: Interpretive Data Percent cell count reference ranges are not reported, since discordance with absolute values may lead to misinterpretation of CBC data. Current Interpretive Data was last revised on 2017. Basophil pct 0.4 % [facility] Comment: Interpretive Data Percent cell count reference ranges are not reported, since discordance with absolute values may lead to misinterpretation of CBC data. Current Interpretive Data was last revised on 2017. Blood specimen (specimen) 10/12/2017 5:18 AM CDT 10/12/2017 5:24 AM CDT Narrative [facility] - 10/12/2017 5:43 AM CDT us Amy Espino Jr., MD LAB BLOOD ORDERABLES Fi nal Result Performing Organization Address [facility] Co de Phone Number [facility] [address] [employer] [facility] [place] [address] * (ABNORMAL) CBC with auto differential (10/12/2017 5:18 AM CDT) [facility] WBC 8.1 3.8 - 9.9 K/cumm [facility] RBC 3.02(L) 4.30 - 5.80 M/cumm [facility] Hgb 8.7(L) 13.0 - 17.5 g/dL [facility] Hct 28.4(L) 38.9 - 50.3 % [facility] MCV 94.0 81.3 - 96.4 fL [facility] MCH 28.8 27.1 - 33.3 pg [facility] MCHC 30.6(L) 32.3 - 35.7 g/dL [facility] RDW CV 18.9(H) 11.1 - 14.9 % [facility] RDW SD 65.3(H) 35.7 - 48.1 fL [facility] Plt 222 150 - 400 K/cumm [facility] MPV 12.2 9.1 - 12.3 fL [facility] NRBC abs 0.00 0.00 - 0.01 K/cumm [facility] Blood specimen (specimen) 10/12/2017 5:18 AM CDT 10/12/2017 5:24 AM CDT Narrative [facility] - 10/12/2017 5:43 AM CDT us Amy Espino Jr., MD LAB BLOOD ORDERABLES Fi nal Result Performing Organization Address [facility] Co de Phone Number [facility] [address] [employer] [facility] [place] [address] * (ABNORMAL) Protime-INR (10/11/2017 3:40 PM CDT) PT 18.9(H) 10.0 - 13.0 sec [facility] Comment: Note: Coagulation specimens must be collected [...] any questions. INR 1.7(H) 0.9 - 1.2 [facility] Comment: INDICATION: ORTHOPEDIC Total Hip and Knee Arthroplasty ?? 1.8 to 2.6 Hip Fracture ?1.8 to 2.6 CARDIOLOGY Atrial Fibrillation ? 2.0 to 3.0 Cardiomyopathy ?2.0 to 3.0 Myocardial Infarction ? 2.5 to 3.0 Non-[place] Heart Valve ?2.0 to 3.5 TREATMENT OF [...] PM CDT 10/11/2017 3:40 PM CDT Narrative [facility] - 10/11/2017 4:19 PM CDT us Amy Espino Jr., MD LAB BLOOD ORDERABLES Fi nal Result Performing Organization Address [facility] Co de Phone Number [facility] [address] Department of Laboratories [place], [place] [id number] * aPTT (10/11/2017 3:40 PM CDT) [facility] aPTT 32.0 26.0 - 36.0 sec [facility] Comment: Interpretive Data Therapeutic Heparin Range: ??52-80 [...] PM CDT 10/11/2017 3:40 PM CDT Narrative [facility] - 10/11/2017 4:19 PM CDT Amy Espino Jr., MD LAB BLOOD ORDERABLES Fi nal Result Performing Organization Address [facility] Co de Phone Number [facility] [address] [place] [address] * (ABNORMAL) Differential, auto (10/11/2017 3:40 PM CDT) [facility] Neutrophil abs 10.3(H) 1.7 - 6.5 K/cumm [facility] Imm gran abs 0.1 0.0 - 0.1 K/cumm [facility] Lymphocyte abs 0.3(L) 0.8 - 3.3 K/cumm [facility] Monocyte abs 0.8 0.2 - 0.8 K/cumm [facility] Eosinophil abs 0.2 0.0 - 0.5 K/cumm [facility] Basophil abs 0.0 0.0 - 0.1 K/cumm [facility] Neutrophil pct 87.3 % [facility] Comment: Interpretive Data Percent cell count reference ranges are not reported, since discordance with absolute values may lead to misinterpretation of CBC data. Current Interpretive Data was last revised on 2017. Imm gran pct 0.5 % [facility] Comment: Interpretive Data Percent cell count reference ranges are not reported, since discordance with absolute values may lead to misinterpretation of CBC data. Current Interpretive Data was last revised on 2017. Lymphocyte pct 2.9 % [facility] Comment: Interpretive Data Percent cell count reference ranges are not reported, since discordance with absolute values may lead to misinterpretation of CBC data. Current Interpretive Data was last revised on 2017. Monocyte pct 7.2 % [facility] Comment: Interpretive Data Percent cell count reference ranges are not reported, since discordance with absolute values may lead to misinterpretation of CBC data. Current Interpretive Data was last revised on 2017. Eosinophil pct 1.8 % [facility] Comment: Interpretive Data Percent cell count reference ranges are not reported, since discordance with absolute values may lead to misinterpretation of CBC data. Current Interpretive Data was last revised on 2017. Basophil pct 0.3 % [facility] Comment: Interpretive Data Percent cell count reference ranges are not reported, since discordance with absolute values may lead to misinterpretation of CBC data. Current Interpretive Data was last revised on 2017. Blood specimen (specimen) 10/11/2017 3:40 PM CDT 10/11/2017 3:40 PM CDT Narrative [facility] - 10/11/2017 4:03 PM CDT us Amy Espino Jr., MD LAB BLOOD ORDERABLES Fi nal Result [facility] [address] [place] [address] * (ABNORMAL) CBC with auto differential (10/11/2017 3:40 PM CDT) WBC 11.8(H) 3.8 - 9.9 K/cumm [facility] RBC 3.00(L) 4.30 - 5.80 M/cumm [facility] Hgb 8.5(L) 13.0 - 17.5 g/dL [facility] Hct 28.8(L) 38.9 - 50.3 % [facility] MCV 96.0 81.3 - 96.4 fL [facility] MCH 28.3 27.1 - 33.3 pg [facility] MCHC 29.5(L) 32.3 - 35.7 g/dL [facility] RDW CV 18.9(H) 11.1 - 14.9 % [facility] RDW SD 66.0(H) 35.7 - 48.1 fL [facility] Plt 237 150 - 400 K/cumm [facility] MPV 12.4(H) 9.1 - 12.3 fL [facility] NRBC abs 0.00 0.00 - 0.01 K/cumm [facility] Blood specimen (specimen) 10/11/2017 3:40 PM CDT 10/11/2017 3:40 PM CDT Narrative [facility] - 10/11/2017 4:03 PM CDT Amy Espino Jr., MD LAB BLOOD ORDERABLES nal Result [facility] [address] [place] [address] * XR Chest 1 Vw (10/11/2017 10:36 [...] RBC (10/09/2017 2:58 PM CDT) Product code [id number] [facility] Unit Number [id number] [facility] Product Blood Type APOS [facility] Dispense Status PRESUMED TRANSFUSED [facility] Blood specimen (specimen) 10/09/2017 2:58 PM CDT 10/09/2017 2:58 PM CDT Narrative [facility] - 10/10/2017 10:15 AM CDT us Amy Espino Jr., MD BLOOD BANK PRODUCT ORDE RABLES Final Result Performing Organization Address [facility] Co de Phone Number [facility] [address] Department [place] [address] * Type and screen (10/09/2017 11:20 AM CDT) ABO Rh A Positive [facility] Jonas, indirect Negative [facility] Blood specimen (specimen) 10/09/2017 11:20 AM CDT 10/09/2017 11:53 AM CDT Narrative [facility] - 10/09/2017 1:16 PM CDT us Amy Espino Jr., MD LAB BLOOD BANK TEST ORD ERABLES Final Result [facility] [address] Department [place] [address] * eGFR (10/09/2017 6:45 AM CDT) [facility] Signature eGFR 96 mL/min/1.7 3 m2 [facility] Comment: Interpretive Data Reference Interval Normal ?>/= 90 mL/min/1.73m2 Mildly decreased* ? 60 - 89 mL/min/1.73m2 Mildly to moderately decreased ?45 - 59 mL/min/1.73m2 Moderately to severely decreased ??30 - 44 mL/min/1.73m2 Severely decreased ?15 - 29 mL/min/1.73m2 Kidney Failure ?< 15 ??mL/min/1.73m2 *Relative to young adult level If -Albanian multiply value by 1.16. Estimated glomerular filtration [...] AM CDT 10/09/2017 6:59 AM CDT Narrative [facility] - 10/09/2017 7:26 AM CDT us Amy Espino Jr., MD LAB BLOOD ORDERABLES Fi nal Result [facility] [address] Department [place] [address] * (ABNORMAL) Comprehensive metabolic panel (10/09/2017 6:45 AM CDT) Sodium 132(L) 135 - 145 mmol/L [facility] Potassium, pl 4.6 3.3 - 4.9 mmol/L [facility] CO2 33(H) 22 - 32 mmol/L [facility] BUN 32(H) 8 - 25 mg/dL [facility] Glucose 112 70 - 199 mg/dL [facility] Comment: Interpretive Data Fasting glucose [...] 2017. Creatinine 0.72(L) 0.80 - 1.30 mg/dL [facility] Calcium 8.9 8.5 - 10.3 mg/dL [facility] Chloride 93(L) 97 - 110 mmol/L [facility] Albumin 2.7(L) 3.5 - 5.0 g/dL [facility] AST 19 10 - 50 Units/L [facility] ALT 18 7 - 55 Units/L [facility] Alk phos 179(H) 40 - 130 Units/L [facility] Bilirubin, total 0.4 0.1 - 1.2 mg/dL [facility] Protein, pl 5.6(L) 6.5 - 8.5 g/dL [facility] Anion gap 6 2 - 15 mmol/L [facility] Blood specimen (specimen) 10/09/2017 6:45 AM CDT 10/09/2017 6:54 AM CDT Narrative [facility] - 10/09/2017 7:26 AM CDT us Amy Espino Jr., MD LAB BLOOD ORDERABLES Fi nal Result [facility] [address] Department [place] [address] * Phosphorus (10/09/2017 6:45 AM CDT) [facility] Phosphorus, pl 2.6 2.3 - 4.5 mg/dL [facility] Blood specimen (specimen) 10/09/2017 6:45 AM CDT 10/09/2017 6:54 AM CDT Narrative [facility] - 10/09/2017 7:26 AM CDT Amy Espino Jr., MD LAB BLOOD ORDERABLES Fi nal Result [facility] [address] Department [place] [address] * (ABNORMAL) Differential, auto (10/09/2017 6:45 AM CDT) [facility] Neutrophil abs 5.9 1.7 - 6.5 K/cumm [facility] Imm gran abs 0.0 0.0 - 0.1 K/cumm [facility] Lymphocyte abs 0.5(L) 0.8 - 3.3 K/cumm [facility] Monocyte abs 0.7 0.2 - 0.8 K/cumm [facility] Eosinophil abs 0.3 0.0 - 0.5 K/cumm [facility] Basophil abs 0.0 0.0 - 0.1 K/cumm [facility] Neutrophil pct 78.4 % [facility] Comment: Interpretive Data Percent cell count reference ranges are not reported, since discordance with absolute values may lead to misinterpretation of CBC data. Current Interpretive Data was last revised on 2017. Imm gran pct 0.7 % [facility] Comment: Interpretive Data Percent cell count reference ranges are not reported, since discordance with absolute values may lead to misinterpretation of CBC data. Current Interpretive Data was last revised on 2017. Lymphocyte pct 7.2 % [facility] Comment: Interpretive Data Percent cell count reference ranges are not reported, since discordance with absolute values may lead to misinterpretation of CBC data. Current Interpretive Data was last revised on 2017. Monocyte pct 9.6 % [facility] Comment: Interpretive Data Percent cell count reference ranges are not reported, since discordance with absolute values may lead to misinterpretation of CBC data. Current Interpretive Data was last revised on 2017. Eosinophil pct 3.6 % [facility] Comment: Interpretive Data Percent cell count reference ranges are not reported, since discordance with absolute values may lead to misinterpretation of CBC data. Current Interpretive Data was last revised on 2017. Basophil pct 0.5 % [facility] Comment: Interpretive Data Percent cell count reference ranges are not reported, since discordance with absolute values may lead to misinterpretation of CBC data. Current Interpretive Data was last revised on 2017. Blood specimen (specimen) 10/09/2017 6:45 AM CDT 10/09/2017 6:54 AM CDT Narrative [facility] - 10/09/2017 7:05 AM CDT us Amy Espino Jr., MD LAB BLOOD ORDERABLES Fi nal Result [facility] [address] Department [place] [address] * (ABNORMAL) CBC with auto differential (10/09/2017 6:45 AM CDT) WBC 7.5 3.8 - 9.9 K/cumm [facility] RBC 2.35(L) 4.30 - 5.80 M/cumm [facility] Hgb 6.7(L) 13.0 - 17.5 g/dL [facility] Hct 23.0(L) 38.9 - 50.3 % [facility] MCV 97.9(H) 81.3 - 96.4 fL [facility] MCH 28.5 27.1 - 33.3 pg [facility] MCHC 29.1(L) 32.3 - 35.7 g/dL [facility] RDW CV 19.4(H) 11.1 - 14.9 % [facility] RDW SD 69.1(H) 35.7 - 48.1 fL [facility] Plt 226 150 - 400 K/cumm [facility] MPV 12.2 9.1 - 12.3 fL [facility] NRBC abs 0.00 0.00 - 0.01 K/cumm [facility] Blood specimen (specimen) 10/09/2017 6:45 AM CDT 10/09/2017 6:54 AM CDT Narrative [facility] - 10/09/2017 7:05 AM CDT Amy Espino Jr., MD LAB BLOOD ORDERABLES Fi nal Result Performing Organization Address [facility] de Phone Number [facility] [address] [employer] [place] [address] * (ABNORMAL) Blood gas, arterial (10/08/2017 8:30 PM CDT) Pathologist [facility] pH, Art 7.39 7.35 - 7.45 [facility] PCO2, Arterial 59(H) 35 - 45 mmHg [facility] PO2, Arterial 82(L) 83 - 108 mmHg [facility] BE, art 9 mmol/L [facility] Comment: Interpretive Data No Reference Range Established Current Interpretive Data was last revised on 2017 O2 Sat Art (Calculated) 96 94 - 98 % [facility] HCO3 Art (Calculated) 36(H) 20 - 30 mmol/L [facility] Blood specimen (specimen) 10/08/2017 8:30 PM CDT 10/08/2017 8:51 PM CDT Narrative [facility] - 10/08/2017 8:54 PM CDT us Amy Espino Jr., MD LAB BLOOD ORDERABLES Fi nal Result Performing Organization Address [facility] Co de Phone Number [facility] [address] [facility] [employer] [place] [address] * eGFR (10/08/2017 2:00 PM CDT) eGFR 95 mL/min/1.7 3 m2 [facility] Comment: Interpretive Data Reference Interval Normal ?>/= 90 mL/min/1.73m2 Mildly decreased* ? 60 - 89 mL/min/1.73m2 Mildly to moderately decreased ?45 - 59 mL/min/1.73m2 Moderately to severely decreased ??30 - 44 mL/min/1.73m2 Severely decreased ?15 - 29 mL/min/1.73m2 Kidney Failure ?< 15 ??mL/min/1.73m2 *Relative to young adult level If -Albanian multiply value by 1.16. Estimated glomerular filtration [...] PM CDT 10/08/2017 2:24 PM CDT Narrative [facility] - 10/08/2017 2:52 PM CDT us Amy Espino Jr., MD LAB BLOOD ORDERABLES Fi nal Result [facility] [address] Department [place] [address] * (ABNORMAL) Comprehensive metabolic panel (10/08/2017 2:00 PM CDT) Pathologist [facility] Sodium 134(L) 135 - 145 mmol/L [facility] Potassium, pl 5.1(H) 3.3 - 4.9 mmol/L [facility] CO2 35(H) 22 - 32 mmol/L [facility] BUN 33(H) 8 - 25 mg/dL [facility] Glucose 111 70 - 199 mg/dL [facility] Comment: Interpretive Data Fasting glucose [...] 2017. Creatinine 0.73(L) 0.80 - 1.30 mg/dL [facility] Calcium 8.9 8.5 - 10.3 mg/dL [facility] Chloride 92(L) 97 - 110 mmol/L [facility] Albumin 3.0(L) 3.5 - 5.0 g/dL [facility] AST 20 10 - 50 Units/L [facility] ALT 21 7 - 55 Units/L [facility] Alk phos 213(H) 40 - 130 Units/L [facility] Bilirubin, total 0.5 0.1 - 1.2 mg/dL [facility] Protein, pl 6.4(L) 6.5 - 8.5 g/dL [facility] Anion gap 7 2 - 15 mmol/L [facility] Blood specimen (specimen) 10/08/2017 2:00 PM CDT 10/08/2017 2:20 PM CDT Narrative [facility] - 10/08/2017 2:52 PM CDT us Amy Espino Jr., MD LAB BLOOD ORDERABLES Fi nal Result [facility] [address] Department [place] [address] * (ABNORMAL) Differential, auto (10/08/2017 2:00 PM CDT) Neutrophil abs 8.7(H) 1.7 - 6.5 K/cumm [facility] Imm gran abs 0.1 0.0 - 0.1 K/cumm [facility] Lymphocyte abs 0.5(L) 0.8 - 3.3 K/cumm [facility] Monocyte abs 0.8 0.2 - 0.8 K/cumm [facility] Eosinophil abs 0.2 0.0 - 0.5 K/cumm [facility] Basophil abs 0.0 0.0 - 0.1 K/cumm [facility] Neutrophil pct 84.7 % [facility] Comment: Interpretive Data Percent cell count reference ranges are not reported, since discordance with absolute values may lead to misinterpretation of CBC data. Current Interpretive Data was last revised on 2017. Imm gran pct 0.8 % [facility] Comment: Interpretive Data Percent cell count reference ranges are not reported, since discordance with absolute values may lead to misinterpretation of CBC data. Current Interpretive Data was last revised on 2017. Lymphocyte pct 4.9 % [facility] Comment: Interpretive Data Percent cell count reference ranges are not reported, since discordance with absolute values may lead to misinterpretation of CBC data. Current Interpretive Data was last revised on 2017. Monocyte pct 7.5 % [facility] Comment: Interpretive Data Percent cell count reference ranges are not reported, since discordance with absolute values may lead to misinterpretation of CBC data. Current Interpretive Data was last revised on 2017. Eosinophil pct 1.8 % [facility] Comment: Interpretive Data Percent cell count reference ranges are not reported, since discordance with absolute values may lead to misinterpretation of CBC data. Current Interpretive Data was last revised on 2017. Basophil pct 0.3 % [facility] Comment: Interpretive Data Percent cell count reference ranges are not reported, since discordance with absolute values may lead to misinterpretation of CBC data. Current Interpretive Data was last revised on 2017. Blood specimen (specimen) 10/08/2017 2:00 PM CDT 10/08/2017 2:21 PM CDT Narrative [facility] - 10/08/2017 2:34 PM CDT Amy Espino Jr., MD LAB BLOOD ORDERABLES Fi nal Result Performing Organization Address [facility] Co de Phone Number [facility] [address] [employer] [place], [place] [id number] * (ABNORMAL) CBC with auto differential (10/08/2017 2:00 PM CDT) [facility] WBC 10.3(H) 3.8 - 9.9 K/cumm [facility] RBC 2.85(L) 4.30 - 5.80 M/cumm [facility] Hgb 8.2(L) 13.0 - 17.5 g/dL [facility] Hct 28.1(L) 38.9 - 50.3 % [facility] MCV 98.6(H) 81.3 - 96.4 fL [facility] MCH 28.8 27.1 - 33.3 pg [facility] MCHC 29.2(L) 32.3 - 35.7 g/dL [facility] RDW CV 19.3(H) 11.1 - 14.9 % [facility] RDW SD 70.2(H) 35.7 - 48.1 fL [facility] Plt 235 150 - 400 K/cumm [facility] MPV 12.4(H) 9.1 - 12.3 fL [facility] NRBC abs 0.00 0.00 - 0.01 K/cumm [facility] Blood specimen (specimen) 10/08/2017 2:00 PM CDT 10/08/2017 2:21 PM CDT Narrative [facility] - 10/08/2017 2:34 PM CDT Amy Espino Jr., MD LAB BLOOD ORDERABLES Fi nal Result Performing Organization Address [facility] Co de Phone Number [facility] [address] [employer] [place], [place] [id number] * XR Chest 1 Vw (10/08/2017 10:02 AM CDT) Anatomical Region Laterality Modality Body, Chest N/A Computed Radiogr aphy Impressions 10/08/2017 10:29 AM CDT Increasing heart size and left lower lobe consolidation. Electronically signed by: DEVON BATISTA [facility] 10/08/2017 10:29 AM CDT Portable chest x-ray [...] CDT) pH, Art 7.36 7.35 - 7.45 [facility] PCO2, Arterial 64(H) 35 - 45 mmHg [facility] PO2, Arterial 112(H) 83 - 108 mmHg [facility] BE, art 8 mmol/L [facility] Comment: Interpretive Data No Reference Range Established Current Interpretive Data was last revised on 2017 O2 Sat Art (Calculated) 98 94 - 98 % [facility] HCO3 Art (Calculated) 36(H) 20 - 30 mmol/L [facility] Blood specimen (specimen) 10/05/2017 9:40 AM CDT 10/05/2017 10:55 AM CDT [facility] - 10/05/2017 10:57 AM CDT us Amy Espino Jr., MD LAB BLOOD ORDERABLES Fi nal Result [facility] [address] [place] [address] * eGFR (10/05/2017 4:55 AM CDT) [facility] eGFR 104 mL/min/1.7 3 m2 [facility] Comment: Interpretive Data Reference Interval Normal ?>/= 90 mL/min/1.73m2 Mildly decreased* ? 60 - 89 mL/min/1.73m2 Mildly to moderately decreased ?45 - 59 mL/min/1.73m2 Moderately to severely decreased ??30 - 44 mL/min/1.73m2 Severely decreased ?15 - 29 mL/min/1.73m2 Kidney Failure ?< 15 ??mL/min/1.73m2 *Relative to young adult level If -Albanian multiply value by 1.16. Estimated glomerular filtration [...] AM CDT 10/05/2017 5:10 AM CDT Narrative [facility] - 10/05/2017 5:37 AM CDT Amy Espino Jr., MD LAB BLOOD ORDERABLES Fi nal Result Performing Organization Address [facility] Co de Phone Number [facility] [address] Department [place] [address] * (ABNORMAL) Renal function panel (10/05/2017 4:55 AM CDT) Sodium 137 135 - 145 mmol/L [facility] Potassium, pl 5.0(H) 3.3 - 4.9 mmol/L [facility] Chloride 95(L) 97 - 110 mmol/L [facility] CO2 33(H) 22 - 32 mmol/L [facility] Anion gap 9 2 - 15 mmol/L [facility] Glucose 134 70 - 199 mg/dL [facility] Comment: Interpretive Data Fasting glucose [...] 2017. BUN 22 8 - 25 mg/dL [facility] Creatinine 0.59(L) 0.80 - 1.30 mg/dL [facility] Calcium 9.4 8.5 - 10.3 mg/dL [facility] Phosphorus, pl 3.1 2.3 - 4.5 mg/dL [facility] Albumin 3.0(L) 3.5 - 5.0 g/dL [facility] Blood specimen (specimen) 10/05/2017 4:55 AM CDT 10/05/2017 5:08 AM CDT Narrative [facility] - 10/05/2017 5:36 AM CDT Amy Espino Jr., MD LAB BLOOD ORDERABLES Fi nal Result [facility] [address] Department [place] [address] * (ABNORMAL) Differential, auto (10/05/2017 4:55 AM CDT) Neutrophil abs 6.6(H) 1.7 - 6.5 K/cumm [facility] Imm gran abs 0.1 0.0 - 0.1 K/cumm [facility] Lymphocyte abs 0.5(L) 0.8 - 3.3 K/cumm [facility] Monocyte abs 0.8 0.2 - 0.8 K/cumm [facility] Eosinophil abs 0.3 0.0 - 0.5 K/cumm [facility] Basophil abs 0.0 0.0 - 0.1 K/cumm [facility] Neutrophil pct 79.1 % [facility] Comment: Interpretive Data Percent cell count reference ranges are not reported, since discordance with absolute values may lead to misinterpretation of CBC data. Current Interpretive Data was last revised on 2017. Imm gran pct 0.7 % [facility] Comment: Interpretive Data Percent cell count reference ranges are not reported, since discordance with absolute values may lead to misinterpretation of CBC data. Current Interpretive Data was last revised on 2017. Lymphocyte pct 6.2 % [facility] Comment: Interpretive Data Percent cell count reference ranges are not reported, since discordance with absolute values may lead to misinterpretation of CBC data. Current Interpretive Data was last revised on 2017. Monocyte pct 9.4 % [facility] Comment: Interpretive Data Percent cell count reference ranges are not reported, since discordance with absolute values may lead to misinterpretation of CBC data. Current Interpretive Data was last revised on 2017. Eosinophil pct 4.0 % [facility] Comment: Interpretive Data Percent cell count reference ranges are not reported, since discordance with absolute values may lead to misinterpretation of CBC data. Current Interpretive Data was last revised on 2017. Basophil pct 0.6 % [facility] Comment: Interpretive Data Percent cell count reference ranges are not reported, since discordance with absolute values may lead to misinterpretation of CBC data. Current Interpretive Data was last revised on 2017. Blood specimen (specimen) 10/05/2017 4:55 AM CDT 10/05/2017 5:08 AM CDT Narrative [facility] - 10/05/2017 5:16 AM CDT Amy Espino Jr., MD LAB BLOOD ORDERABLES [facility] Result [facility] [address] [place] [address] * (ABNORMAL) CBC with auto differential (10/05/2017 4:55 AM CDT) WBC 8.3 3.8 - 9.9 K/cumm [facility] RBC 2.72(L) 4.30 - 5.80 M/cumm [facility] Hgb 7.8(L) 13.0 - 17.5 g/dL [facility] Hct 26.4(L) 38.9 - 50.3 % [facility] MCV 97.1(H) 81.3 - 96.4 fL [facility] MCH 28.7 27.1 - 33.3 pg [facility] MCHC 29.5(L) 32.3 - 35.7 g/dL [facility] RDW CV 19.7(H) 11.1 - 14.9 % [facility] RDW SD 69.7(H) 35.7 - 48.1 fL [facility] Plt 273 150 - 400 K/cumm [facility] MPV 12.7(H) 9.1 - 12.3 fL [facility] NRBC abs 0.00 0.00 - 0.01 K/cumm [facility] Blood specimen (specimen) 10/05/2017 4:55 AM CDT 10/05/2017 5:08 AM CDT Narrative [facility] - 10/05/2017 5:16 AM CDT Amy Espino Jr., MD LAB BLOOD ORDERABLES Fi nal Result Performing Organization Address [facility] Co de Phone Number [facility] [address] [employer] [address] [place] [address] * eGFR (10/02/2017 5:48 AM CDT) [facility] eGFR 96 mL/min/1.7 3 m2 [facility] Comment: Interpretive Data Reference Interval Normal ?>/= 90 mL/min/1.73m2 Mildly decreased* ? 60 - 89 mL/min/1.73m2 Mildly to moderately decreased ?45 - 59 mL/min/1.73m2 Moderately to severely decreased ??30 - 44 mL/min/1.73m2 Severely decreased ?15 - 29 mL/min/1.73m2 Kidney Failure ?< 15 ??mL/min/1.73m2 *Relative to young adult level If -Albanian multiply value by 1.16. Estimated glomerular filtration [...] AM CDT 10/02/2017 5:52 AM CDT Narrative [facility] - 10/02/2017 6:19 AM CDT us Amy Espino Jr., MD LAB BLOOD ORDERABLES Fi nal Result Performing Organization Address [facility]/ZIP Co de Phone Number [facility] [address] [place] [address] * (ABNORMAL) Basic metabolic panel (10/02/2017 5:48 AM CDT) Pathologist [facility] Sodium 131(L) 135 - 145 mmol/L [facility] Potassium, pl 5.4(H) 3.3 - 4.9 mmol/L [facility] Chloride 93(L) 97 - 110 mmol/L [facility] CO2 30 22 - 32 mmol/L [facility] BUN 25 8 - 25 mg/dL [facility] Glucose 112 70 - 199 mg/dL [facility] Comment: Interpretive Data Fasting glucose [...] 2017. Creatinine 0.71(L) 0.80 - 1.30 mg/dL [facility] Calcium 8.9 8.5 - 10.3 mg/dL [facility] Anion gap 8 2 - 15 mmol/L [facility] Blood specimen (specimen) 10/02/2017 5:48 AM CDT 10/02/2017 5:48 AM CDT Narrative [facility] - 10/02/2017 6:19 AM CDT us Amy Espino Jr., MD LAB BLOOD ORDERABLES Fi nal Result [facility] [address] Department [place] [address] * (ABNORMAL) Differential, auto (10/02/2017 5:48 AM CDT) Neutrophil abs 6.4 1.7 - 6.5 K/cumm [facility] Imm gran abs 0.1 0.0 - 0.1 K/cumm [facility] Lymphocyte abs 0.6(L) 0.8 - 3.3 K/cumm [facility] Monocyte abs 0.8 0.2 - 0.8 K/cumm [facility] Eosinophil abs 0.4 0.0 - 0.5 K/cumm [facility] Basophil abs 0.1 0.0 - 0.1 K/cumm [facility] Neutrophil pct 77.2 % [facility] Comment: Interpretive Data Percent cell count reference ranges are not reported, since discordance with absolute values may lead to misinterpretation of CBC data. Current Interpretive Data was last revised on 2017. Imm gran pct 1.2 % [facility] Comment: Interpretive Data Percent cell count reference ranges are not reported, since discordance with absolute values may lead to misinterpretation of CBC data. Current Interpretive Data was last revised on 2017. Lymphocyte pct 7.6 % [facility] Comment: Interpretive Data Percent cell count reference ranges are not reported, since discordance with absolute values may lead to misinterpretation of CBC data. Current Interpretive Data was last revised on 2017. Monocyte pct 9.0 % [facility] Comment: Interpretive Data Percent cell count reference ranges are not reported, since discordance with absolute values may lead to misinterpretation of CBC data. Current Interpretive Data was last revised on 2017. Eosinophil pct 4.3 % [facility] Comment: Interpretive Data Percent cell count reference ranges are not reported, since discordance with absolute values may lead to misinterpretation of CBC data. Current Interpretive Data was last revised on 2017. Basophil pct 0.7 % [facility] Comment: Interpretive Data Percent cell count reference ranges are not reported, since discordance with absolute values may lead to misinterpretation of CBC data. Current Interpretive Data was last revised on 2017. Blood specimen (specimen) 10/02/2017 5:48 AM CDT 10/02/2017 5:48 AM CDT Narrative [facility] - 10/02/2017 6:02 AM CDT Amy Espino Jr., MD LAB BLOOD ORDERABLES Fi nal Result [facility] [address] [facility] [employer] [facility] [place] [address] * (ABNORMAL) CBC with auto differential (10/02/2017 5:48 AM CDT) WBC 8.3 3.8 - 9.9 K/cumm [facility] RBC 2.62(L) 4.30 - 5.80 M/cumm [facility] Hgb 7.5(L) 13.0 - 17.5 g/dL [facility] Hct 25.1(L) 38.9 - 50.3 % [facility] MCV 95.8 81.3 - 96.4 fL [facility] MCH 28.6 27.1 - 33.3 pg [facility] MCHC 29.9(L) 32.3 - 35.7 g/dL [facility] RDW CV 19.9(H) 11.1 - 14.9 % [facility] RDW SD 69.3(H) 35.7 - 48.1 fL [facility] Plt 267 150 - 400 K/cumm [facility] MPV 12.8(H) 9.1 - 12.3 fL [facility] NRBC abs 0.00 0.00 - 0.01 K/cumm [facility] Blood specimen (specimen) 10/02/2017 5:48 AM CDT 10/02/2017 5:48 AM CDT Narrative [facility] - 10/02/2017 6:02 AM CDT us Amy Espino Jr., MD LAB BLOOD ORDERABLES Fi nal Result [facility] [address] [facility] [employer] [facility] [place] [address] * (ABNORMAL) Blood gas, arterial (09/28/2017 1:30 PM CDT) pH, Art 7.35 7.35 - 7.45 [facility] PCO2, Arterial 58(H) 35 - 45 mmHg [facility] PO2, Arterial 63(L) 83 - 108 mmHg [facility] BE, art 5 mmol/L [facility] Comment: Interpretive Data No Reference Range Established Current Interpretive Data was last revised on 2017 O2 Sat Art (Calculated) 90(L) 94 - 98 % [facility] HCO3 Art (Calculated) 32(H) 20 - 30 mmol/L [facility] Blood specimen (specimen) 09/28/2017 1:30 PM CDT 09/28/2017 1:55 PM CDT Narrative [facility] - 09/28/2017 1:58 PM CDT us Amy Espino Jr., MD LAB BLOOD ORDERABLES Fi nal Result [facility] [address] Department [place] [address] * XR Chest 1 Vw (09/28/2017 8:55 [...] * Hemoglobin A1c (09/27/2017 9:27 PM CDT) [facility] Hgb A1C 4.7 4.0 - 5.6 % [facility] Estimated Average Glucose 88 mg/dL [facility] Comment: The ADA recommends reporting an estimated Average Glucose (eAG) with all Hemoglobin A1c results using the equation derived from a study of 507 normal and diabetic adults. ??Minority populations were underrepresented and children were not included. ?? (Diabetes Care 31:3344-7307, 2007). ??The eAG is not equivalent to a fasting glucose. Blood specimen (specimen) 09/27/2017 9:27 PM CDT 09/27/2017 9:38 PM CDT Narrative [facility] - 09/27/2017 10:25 PM CDT Amy Espino Jr., MD LAB BLOOD ORDERABLES Fi nal Result [facility] [address] Department [place] [address] * (ABNORMAL) Differential, auto (09/27/2017 4:20 AM CDT) [facility] Neutrophil abs 6.7(H) 1.7 - 6.5 K/cumm [facility] Imm gran abs 0.1 0.0 - 0.1 K/cumm [facility] Lymphocyte abs 0.6(L) 0.8 - 3.3 K/cumm [facility] Monocyte abs 0.7 0.2 - 0.8 K/cumm [facility] Eosinophil abs 0.6(H) 0.0 - 0.5 K/cumm [facility] Basophil abs 0.0 0.0 - 0.1 K/cumm [facility] Neutrophil pct 77.5 % [facility] Comment: Interpretive Data Percent cell count reference ranges are not reported, since discordance with absolute values may lead to misinterpretation of CBC data. Current Interpretive Data was last revised on 2017. Imm gran pct 1.2 % [facility] Comment: Interpretive Data Percent cell count reference ranges are not reported,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
--- OUTSIDE RECORDS SUMMARY | 2024-05-25 02:52 | XMS_ITS | Encounter Summary ---
Author Organization [facility] Medical [facility] Address [address] [place] [address] Care Team Providers Care Clearing Tub Worker Name Role Phone Briana Medeiros MD Primary Care Provider [phone] Reason for Visit * Reason Comments Follow-up yearly Encounter Details Date Type Department Care Team (Late st Contact Info) Description 02/22/2017 8:15 AM CDT Office Visit [facility] [address] [address] [place] MD [address] [facility] [address] [place] [address] Chronic atrial fibrillation (CMS/HCC) (Primary Dx) Social History Tobacco Use Types Packs/Day Years Used Date Smoking Tobacco: Never Assessed Alcohol Use Standard Drinks/Week Comments No 0 (1 standard drink = 0.6 oz pur e alcohol) Sex and Gender Information Value Date Recorded Sex Assigned at Not on file 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 He is seeing a it desktop support specialist at [facility] who did a biopsy and he is [...] 2017 added in this encounter Care Teams Clearing Tub Worker Relationship Specialty Start Date End Date Briana Medeiros MD [address] [place] [address] PCP - General 07/06/12 03/24/22 documented as of this encounter
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
--- OUTSIDE RECORDS SUMMARY | 2024-05-25 02:52 | XMS_ITS | Encounter Summary ---
Author Organization [facility] Healthcare Address [address] [place] [address] Care Team Providers Care Peoplesoft Developer Name Role Phone Briana Medeiros MD Primary Care Provider [phone] Encounter Details Date Type Department Care Team (Latest Contact Info) Description 10/16/2017 7:39 AM CDT - 10/16/2017 11:59 PM CDT Hospital Encounter [facility] - Imaging [address] [place] [address] Александр Espino Jr., MD [address] [facility] [address] [place], [place] [id number] Discharge Disposition: Discharge to home or self care Social History Tobacco Use Types Packs/Day Years Used Date Smoking Tobacco: Never Assessed Alcohol Use Standard Drinks/Week Comments No 0 (1 standard drink = 0.6 oz pur e alcohol) Sex and Gender Information Value Date Recorded Sex Assigned at Not on file 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
--- OUTSIDE RECORDS SUMMARY | 2024-05-25 02:52 | XMS_ITS | Encounter Summary ---
Author Organization [facility] Healthcare Address [address] [place] [address] Care Team Providers Care Glove Cutter Name Role Phone Briana Medeiros MD Primary Care Provider [phone] Encounter Details Date Type Department Care Team (Latest Contact Info) Description 09/19/2017 4:45 PM CDT - 09/19/2017 11:59 PM CDT Hospital Encounter [facility] - Imaging [address] [place] [address] Александр Espino Jr., MD [address] [facility] [address] [place], [place] [id number] Discharge Disposition: Discharge to home or self care Social History Tobacco Use Types Packs/Day Years Used Date Smoking Tobacco: Never Assessed Alcohol Use Standard Drinks/Week Comments No 0 (1 standard drink = 0.6 oz pur e alcohol) Sex and Gender Information Value Date Recorded Sex Assigned at Not on file 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 Electronically signed by: LYDIA SAWN MD [facility] 09/19/2017 5:44 PM CDT EXAM: XR ABDOMEN [...] on filedocumented in this encounter Care Teams Glove Cutter Relationship Specialty Start Date End Date Briana Medeiros MD [address] [place] [address] PCP - General 07/06/12 03/24/22 documented as of this encounter
--- OUTSIDE RECORDS SUMMARY | 2024-05-25 02:52 | XMS_ITS | Encounter Summary ---
Author Organization [facility] Healthcare Address [address] [place] [address] Care Team Providers Care Welding Equipment Repairer Supervisor Name Role Phone Briana Medeiros MD Primary Care Provider [phone] Encounter Details Date Type Department Care Team (Latest Contact Info) Description 10/13/2017 7:34 AM CDT - 10/13/2017 11:59 PM CDT Hospital Encounter [facility] - Imaging [address] [place] [address] Discharge Disposition: Discharge to home or self care Social History Tobacco Use Types Packs/Day Years Used Date Smoking Tobacco: Never Assessed Alcohol Use Standard Drinks/Week Comments No 0 (1 standard drink = 0.6 oz pur e alcohol) Sex and Gender Information Value Date Recorded Sex Assigned at Not on file 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
--- OUTSIDE RECORDS SUMMARY | 2024-05-25 02:52 | XMS_ITS | Encounter Summary ---
Author Organization [facility] Medical [facility] Address [address] [facility] [address] [place] [address] Care Team Providers Care Mud Logger Name Role Phone Briana Medeiros MD Primary Care Provider [phone] Encounter Details Date Type Department Care Team (Late st Contact Info) Description 07/04/2017 Telephone [facility] [address] [address] [place] MD [address] [facility] [address] [address] Social History Tobacco Use Types Packs/Day Years Used Date Smoking Tobacco: Never Assessed Alcohol Use Standard Drinks/Week Comments No 0 (1 standard drink = 0.6 oz pur e alcohol) Sex and Gender Information Value Date Recorded Sex Assigned at Not on file 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 T STEAM YACHT * Telephone Encounter - Jazmin Garcia - 07/04/2017 11:55 AM CST Pharmacy called about metoprolol er 100 mg. The pharmacy only has 200 mg in stock. They would like to know if patient can that have filled and cut pill in 1/2 each day. Please call to discuss. [phone] T STEAM YACHT documented in this encounter Plan of Treatment Not on file documented as of this encounter Visit Diagnoses Not on filedocumented in this encounter Care Teams Mud Logger Relationship Specialty Start Date End Date Briana Medeiros MD [address] [place] [address] PCP - General 07/06/12 03/24/22 documented as of this encounter
--- OUTSIDE RECORDS SUMMARY | 2024-05-25 02:52 | XMS_ITS | Encounter Summary ---
Author Organization [facility] Healthcare Address [address] [place] [address] Care Team Providers Care Momd Teacher Name Role Phone Briana Medeiros MD Primary Care Provider [phone] Encounter Details Date Type Department Care Team (Latest Contact Info) Description 09/22/2017 8:06 AM CDT - 09/22/2017 11:59 PM CDT Hospital Encounter [facility] - Imaging [address] [place] [address] Discharge Disposition: Discharge to home or self care Social History Tobacco Use Types Packs/Day Years Used Date Smoking Tobacco: Never Assessed Alcohol Use Standard Drinks/Week Comments No 0 (1 standard drink = 0.6 oz pur e alcohol) Sex and Gender Information Value Date Recorded Sex Assigned at Not on file 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
--- OUTSIDE RECORDS SUMMARY | 2024-05-25 02:52 | XMS_ITS | Encounter Summary ---
Author Organization [facility] Healthcare Address [address] [place] [address] Care Team Providers Care Reshipping Clerk Name Role Phone Briana Medeiros MD Primary Care Provider [phone] Encounter Details Date Type Department Care Team (Latest Contact Info) Description 10/24/2017 6:32 PM CDT - 2017 2:31 PM CDT Hospital Encounter [facility] [address] [place] [address] Rachna Burt MD [address] [facility] [address] [place] [address] Discharge Disposition: Discharge to SNF Social History Tobacco Use Types Packs/Day Years Used Date Smoking Tobacco: Former Smokeless Tobacco: Never Alcohol Use Standard Drinks/Week Comments No 0 (1 standard drink = 0.6 oz pur e alcohol) Sex and Gender Information Value Date Recorded Sex Assigned at Not on file 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 Gender Identity Not on file Sexual Orientation [...] Care Physician at Discharge: Briana Medeiros MD [phone] Admission Date: 10/24/2017 Discharge Date: 2017 Primary Discharge Diagnosis: Debility Secondary Discharge Diagnosis: Chronic atrial fibrillation (CMS/HCC) Former smoker COPD (chronic obstructive pulmonary disease) ([facility]) Hypercapnic respiratory failure ([facility]) Diskitis Pneumonia Hyponatremia Gluteal ulcer DETAILS OF HOSPITAL STAY Presenting Problem/History of Present Illness: Debility following respiratory failure Hospital Course: Pt is a 66 yr old male with a PMH of COPD, A Fib,on long-term oral anticoagulation;hypertension, diabetes who presented to [facility] with respiratory failure. He orginally presented to an outside hospital on 07/29/17 for an L1 debridement associate d with an abscess. His subsequent medical course was complicated my MRSA empyema requiring chest tube placement with prolonged antibiotics, trachestomy for delayed weaning, PEG placement and mucus plugging. [facility] . He is participating in limited therapy. [...] transferred to the inpatient rehabilitation unit at [facility] where he underwent PT,OT, SP to help [...] surgery Test Results Pending at Discharge: Per [facility] Operative Procedures Performed: Removal of PEG Other Procedures: None Pertinent Test Results: Per [facility] Discharge Details Physical Exam at Discharge: Discharge [...] Disposition Code Departure Means Destination Discharge to [facility] documented in this encounter Progress Notes * [...] was removed November 08.Looks great. Discharged to residential today. Review of Systems: Review of Systems [...] oral, Q15 Min PRN, Jason Shore Jr., CAR FERRY MASTER ??? dextrose 50% (concentrated solution) CONCENTRATED solution 25 g, 25 g, intravenous, Q15 Min PRN, Jason Shore Jr., CAR FERRY MASTER ??? diphenhydrAMINE (BENADRYL) tab/cap 25 mg, 25 mg, oral, QID PRN, Александр Espino Jr., MD, 25 mgat 11/09/171946 ??? docusate sodium (COLACE) capsule 100 mg, 100 mg, oral, BID, Jason Shore Jr., CAR FERRY MASTER, 100 mg at 11/09/171945 ??? ergocalciferol (VITAMIN D) capsule 50,000 Units, 50,000 Units, oral, Weekly, Adam Pastor MD, 50,000 Units at 11/09/17835 ??? glucagon injection 1 mg, 1 mg, intramuscular, Q30 Min PRN, Jason Shore Jr., CAR FERRY MASTER ??? ipratropium-albuterol (DUO-NEB) 0.5-2.5 mg/3 mL nebulizer solution 3 mL, 3 mL, nebulization, Q4H PRN (RT), Rachna Burt MD ??? lidocaine (LIDODERM) 5 % patch 1 patch, 1 patch, transdermal, Daily, Jason Shore Jr., CAR FERRY MASTER, Stopped at 11/09/171954 ??? metoprolol (LOPRESSOR) tablet [...] g, oral, BID PRN, Jason Shore Jr., CAR FERRY MASTER, 17 g at 11/09/17 0836 ??? senna [...] for pneumonia, empyema prior to transfer to [facility]. Finished Bactrim for stenotrophomonas pneumonia here. Continue to observe off antibiotics. Diskitis Assessment & Plan Completed debridement, prolonged antibiotic therapy for an L1 diskitis. Continue physical therapy, pain control Hypercapnic respiratory failure ([facility]) Assessment & Plan Successfully decannulated. Comfortable on room air. Doing well without BiPAP COPD (chronic obstructive pulmonary disease) ([facility]) Assessment & Plan Pulmonary function testing when stable. Continue inhaled bronchodilator therapy. Lungs are clear Former smoker Assessment & Plan May meet criteria for lung cancer screen Chronic atrial fibrillation ([facility]) Assessment & Plan Normal sinus rhythm by exam. Monitor for bleeding ( had bleeding around his tracheostomy, skin tears while at [facility]). Continue amiodarone, aspirin, Lipitor, metoprolol, apixaban For [...] 500 mg, 500 mg, oral, BID, Rachna uBrt MD, 500 mg at 11/09/17 1946 ??? [...] mg, rectal, Daily PRN, Jason Shore Jr., CAR FERRY MASTER, 10 mg at 11/06/17 1824 ??? bisacodyl EC (DULCOLAX EC) tablet 5 mg, 5 mg, oral, BID PRN, Jason Shore Jr., CAR FERRY MASTER, 5 mg at 11/07/17 1012 ??? budesonide-formoterol [...] oral, Q15 Min PRN, Jason Shore Jr., CAR FERRY MASTER ??? dextrose 50% (concentrated solution) CONCENTRATED solution [...] g, oral, BID PRN, Jason Shore Jr., CAR FERRY MASTER, 17 g at 11/09/17835 ??? senna (SENOKOT) [...] prior tobacco abuse. 4. Dysphagia: S/p PEG. 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 Aspiration precautions 5. Dm2: A1c [...] Daily, Rachna Burt MD, 20 mg at 06/05/154913 ??? bacitracin 500 unit/gram ointment packet 1 [...] oral, Q15 Min PRN, Jason Shore Jr., CAR FERRY MASTER ??? dextrose 50% (concentrated solution) CONCENTRATED solution [...] Daily, Jason Shore Jr., BELLA, Stopped at 11/08/172136 ??? metoprolol (LOPRESSOR) tablet [...] for pneumonia, empyema prior to transfer to [facility]. Finished Bactrim for stenotrophomonas pneumonia here. Continue to observe off antibiotics. Diskitis Assessment & Plan Completed debridement, prolonged antibiotic therapy for an L1 diskitis. Continue physical therapy, pain control Hypercapnic respiratory failure ([facility]) Assessment & Plan Successfully decannulated. Comfortable on room air. Doing well without BiPAP COPD (chronic obstructive pulmonary disease) ([facility]) Assessment & Plan Pulmonary function testing when stable. Continue inhaled bronchodilator therapy. Lungs are clear Former smoker Assessment & Plan May meet criteria for lung cancer screen Chronic atrial fibrillation ([facility]) Assessment & Plan Normal sinus rhythm by exam. Monitor for bleeding ( had bleeding around his tracheostomy, skin tears while at [facility]). Continue amiodarone, aspirin, Lipitor, metoprolol, apixaban For [...] oral, Q15 Min PRN, Jason Shore Jr., CAR FERRY MASTER ??? dextrose 50% (concentrated solution) CONCENTRATED solution 25 g, 25 g, intravenous, Q15 Min PRN, Jason Shore Jr., CAR FERRY MASTER ??? diphenhydrAMINE (BENADRYL) tab/cap 25 mg, 25 mg, oral, QID PRN, Александр Espino Jr., MD, 25 mgat 11/08/171922 ??? docusate sodium (COLACE) capsule 100 mg, 100 mg, oral, BID, Jason Shore Jr., CAR FERRY MASTER, 100 mg at 11/08/172135 ??? ergocalciferol (VITAMIN D) capsule 50,000 Units, 50,000 Units, oral, Weekly, Adam Pastor MD, 50,000 Units at 11/02/17 0719 ??? glucagon injection 1 mg, 1 mg, intramuscular, Q30 Min PRN, Jason Shore Jr., CAR FERRY MASTER ??? ipratropium-albuterol (DUO-NEB) 0.5-2.5 mg/3 mL nebulizer solution 3 mL, 3 mL, nebulization, Q4H PRN (RT), Rachna Burt MD ??? lidocaine (LIDODERM) 5 % patch 1 patch, 1 patch, transdermal, Daily, Jason Shore Jr., CAR FERRY MASTER, Stopped at 11/08/172136 ??? metoprolol (LOPRESSOR) tablet [...] g, oral, BID PRN, Jason Shore Jr., CAR FERRY MASTER, 17 g at 11/05/172121 ??? senna (SENOKOT) [...] prior tobacco abuse. 4. Dysphagia: S/p PEG. 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 Aspiration precautions 5. Dm2: A1c [...] Adult Diet Regular Diet effective now Question: ([facility]) Diet type Answer: Regular 10/27/17 1421 10/25/17 [...] List/ Comorbidities: Active Problems: Chronic atrial fibrillation ([facility]) Former smoker COPD (chronic obstructive pulmonary disease) ([facility]) Hypercapnic respiratory failure ([facility]) Diskitis Pneumonia Hyponatremia MEDICAL PLAN: 1. Debility: [...] prior tobacco abuse. 4. Dysphagia: ??S/p PEG. 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 ??Aspiration precautions 5. Dm2: ??A1c [...] mg, rectal, Daily PRN, Jason Shore Jr., CAR FERRY MASTER, 10 mg at 11/06/17 182 ??? bisacodyl [...] Q30 Min PRN, Jason W. Silviano Jr., CAR FERRY MASTER ??? ipratropium-albuterol (DUO-NEB) 0.5-2.5 mg/3 mL nebulizer solution 3 mL, 3 mL, nebulization, Q4H PRN (RT), Rachna Burt MD ??? lidocaine (LIDODERM) 5 % patch 1 patch, 1 patch, transdermal, Daily, Jason Shore Jr., CAR FERRY MASTER, Stopped at 11/07/172147 ??? metoprolol (LOPRESSOR) tablet [...] g, oral, BID PRN, Jason Shore Jr., CAR FERRY MASTER, 17 g at 11/05/172121 ??? 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 MOBILE LOUNGE DRIVER Cognition: WFL MOBILE LOUNGE DRIVER Communication: WFL MOBILE LOUNGE DRIVER Swallowing: WFL: Regular consistency with thin liquids, [...] Frequency Start Date End Date Collaborate with machine brusher -- 10/24/17 -- Problem: Lack of Knowledge: [...] 10/25/17 -- Goal Start Date End Date [facility] - Patient will utilize incentive spirometer 10/25/17 [...] Date: 10/25/17 Goal Start Date End Date [facility] - Pain is manageable through therapies 10/25/17 -- Goal Start Date End Date [facility] - Patient will verbalize an acceptable level of pain 10/25/17 -- Problem: OT Misc Start Date: 10/25/17 Goal Start Date End Date [facility] 1 10/25/17 -- Goal Details: Pt to dress modified IND Goal Start Date End Date [facility] 2 10/25/17 -- Goal Details: Pt to groom modified IND Goal Start Date End Date [facility] 3 10/25/17 -- Goal Details: Pt to bathe with transfer modified IND Goal Start Date End Date [facility] 4 10/25/17 -- Goal Details: Pt to toilet with transfer modified IND Goal Start Date End Date [facility] 5 10/25/17 -- Goal Details: Pt to complete UE HEP with IND to promote IND with self care and functional transfers Problem: Cognitive: Start Date: 10/25/17 Goal Start Date End Date [facility] 1 10/25/17 -- Goal Details: Patient will execute multiple elements of a task with supervision Goal Start Date End Date [facility] 2 10/25/17 -- Goal Details: Patient will increase problem solving to complete tasks at 90% or with supervision Problem: Physical Regulation: Start Date: 10/25/17 Goal Start Date End Date [facility] 3 10/25/17 -- Goal Details: Patient will increase general strength/coordination through various exercises with supervision until disch Problem: Respiratory: Start Date: 10/25/17 Goal Start Date End Date [facility] 4 10/25/17 -- Goal Details: Patient will maintain/increase SPO2 by 1% in at least one session prior to disch Goal Start Date End Date [facility] 5 10/25/17 -- Goal Details: Patient will increase pulmonary function through various exercises with supervision until disch Problem: PT [facility] Start Date: 10/25/17 Goal Start Date End Date [facility] 1 10/25/17 -- Goal Details: Pt will roll SARAH and supine<-->sit EOB with supervision and bedrails as needed.Pt will sit<-->stand with minimum assist and appropriate assistive device. Pt will transfer bed<-->wheelchair/chair with minimum assist and appropriate assistive device. Goal Start Date End Date [facility] 2 10/25/17 -- Goal Details: Pt will ambulate 150' w/ minimum assist and appropriate assistive device. Pt will ambulate up/down 4 stairs with mod assist and SARAH rails. Goal Start Date End Date [facility] 4 10/25/17 -- Goal Details: Pt will complete SARAH LE HEP x15 reps with supervision. Goal Start Date End Date [facility] 5 10/25/17 -- Goal Details: Pt and/or [...] mg, rectal, Daily PRN, Jason Shore Jr. CAR FERRY MASTER, 10 mg at 11/06/17 1824 ??? bisacodyl EC (DULCOLAX EC) tablet 5 mg, 5 mg, oral, BID PRN, Jason Shore Jr. CAR FERRY MASTER, 5 mg at 11/07/17 1012 ??? budesonide-formoterol [...] oral, Q15 Min PRN, Jason Shore Jr., CAR FERRY MASTER ??? dextrose 50% (concentrated solution) CONCENTRATED solution 25 g, 25 g, intravenous, Q15 Min PRN, Jason Shore Jr., CAR FERRY MASTER ??? diphenhydrAMINE (BENADRYL) tab/cap 25 mg, 25 [...] g, oral, BID PRN, Jason Shore Jr., CAR FERRY MASTER, 17 g at 11/05/172121 ??? senna (SENOKOT) [...] for pneumonia, empyema prior to transfer to [facility]. Finished Bactrim for stenotrophomonas pneumonia here. Two-view chest x-ray much better. Continue to observe off antibiotics. Diskitis Assessment & Plan Completed debridement, prolonged antibiotic therapy for an L1 diskitis. Continue physical therapy, pain control Hypercapnic respiratory failure ([facility]) Assessment & Plan Successfully decannulated. Comfortable on room air. Doing well without BiPAP COPD (chronic obstructive pulmonary disease) ([facility]) Assessment & Plan Pulmonary function testing when stable. Continue inhaled bronchodilator therapy. Lungs are clear Former smoker Assessment & Plan May meet criteria for lung cancer screen Chronic atrial fibrillation ([facility]) Assessment & Plan Hemodynamically stable. Monitor for [...] Pastor M.D. 11/08/2017 Patient Name: José Miguel Jang Admit Date: [...] 100 mg, oral, BID, Jason Shore Jr., CAR FERRY MASTER, 100 mg at 11/07/172147 ??? ergocalciferol (VITAMIN [...] g, oral, BID PRN, Jason Shore Jr., CAR FERRY MASTER, 17 g at 11/05/172121 ??? senna (SENOKOT) [...] prior tobacco abuse. 4. Dysphagia: S/p PEG. 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 Aspiration precautions 5. Dm2: A1c [...] oral, TID with meals, Jason Shore Jr. CAR FERRY MASTER, 5 mg at 11/06/17 1645 ??? bisacodyl (DULCOLAX) suppository 10 mg, 10 mg, rectal, Daily PRN, Jason Shore Jr., NP, 10 mg at 11/06/171823 ??? bisacodyl EC (DULCOLAX EC) tablet 5 mg, 5 mg, oral, BID PRN, Jason Shore Jr. CAR FERRY MASTER, 5 mg at 11/06/172221 ??? budesonide-formoterol (SYMBICORT) [...] oral, Q15 Min PRN, Jason Shore Jr., CAR FERRY MASTER ??? dextrose 50% (concentrated solution) CONCENTRATED solution 25 g, 25 g, intravenous, Q15 Min PRN, Jason Shore Jr., CAR FERRY MASTER ??? diphenhydrAMINE (BENADRYL) tab/cap 25 mg, 25 [...] 1 patch, transdermal, Daily, Jason Shore Jr. CAR FERRY MASTER, Stopped at 11/06/172237 ??? metoprolol (LOPRESSOR) tablet [...] g, oral, BID PRN, Jason Shore Jr., CAR FERRY MASTER, 17 g at 11/05/172121 ??? senna (SENOKOT) [...] for pneumonia, empyema prior to transfer to [facility]. Finished Bactrim for stenotrophomonas pneumonia here. Two-view chest x-ray much better. Continue to observe off antibiotics. Diskitis Assessment & Plan Completed debridement, prolonged antibiotic therapy for an L1 diskitis. Continue physical therapy, pain control Hypercapnic respiratory failure ([facility]) Assessment & Plan Successfully decannulated. Comfortable on room air. Doing well without BiPAP COPD (chronic obstructive pulmonary disease) ([facility]) Assessment & Plan Pulmonary function testing when stable. Continue inhaled bronchodilator therapy. Lungs are clear Former smoker Assessment & Plan May meet criteria for lung cancer screen Chronic atrial fibrillation ([facility]) Assessment & Plan Hemodynamically stable. Monitor for [...] oral, Q15 Min PRN, Jason Shore Jr., CAR FERRY MASTER ??? dextrose 50% (concentrated solution) CONCENTRATED solution 25 g, 25 g, intravenous, Q15 Min PRN, Jason Shore Jr., NP ??? diphenhydrAMINE (BENADRYL) tab/cap 25 mg, 25 mg, oral, QID PRN, Александр Espino Jr., MD, 25 mgat 11/07/17 0714 ??? docusate sodium (COLACE) capsule 100 mg, 100 mg, oral, BID, Jason Shore Jr., CAR FERRY MASTER, 100 mg at 11/06/172230 ??? ergocalciferol (VITAMIN [...] g, oral, BID PRN, Jason Shore Jr., CAR FERRY MASTER, 17 g at 11/05/172121 ??? senna (SENOKOT) [...] prior tobacco abuse. 4. Dysphagia: S/p PEG. 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 Aspiration precautions 5. Dm2: A1c [...] prior tobacco abuse. 4. Dysphagia: ??S/p PEG. 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 ??Aspiration precautions 5. Dm2: ??A1c [...] Rachna Burt MD, 5 mg at 11/06/17 1184 ??? ascorbic acid (VITAMIN C) tablet/chewable tablet [...] mg, rectal, Daily PRN, Jason Shore Jr., CAR FERRY MASTER, 10 mg at 10/29/172138 ??? bisacodyl EC (DULCOLAX EC) tablet 5 mg, 5 mg, oral, BID PRN, Jason Shore Jr. CAR FERRY MASTER, 5 mg at 11/06/17 0759 ??? budesonide-formoterol [...] oral, Q15 Min PRN, Jason Shore Jr., CAR FERRY MASTER ??? dextrose 50% (concentrated solution) CONCENTRATED solution [...] g, oral, BID PRN, Jason Shore Jr., CAR FERRY MASTER, 17 g at 11/05/172121 ??? senna (SENOKOT) [...] OT Communication: decreased vocal strength at times. MOBILE LOUNGE DRIVER Cognition: WFL MOBILE LOUNGE DRIVER Communication: WFL MOBILE LOUNGE DRIVER Swallowing: WFL: Regular consistency with thin liquids, [...] Frequency Start Date End Date Collaborate with machine brusher -- 10/24/17 -- Problem: Lack of Knowledge: [...] modified IND Goal Start Date End Date [facility] 2 10/25/17 -- Goal Details: Pt to groom modified IND Goal Start Date End Date [facility] 3 10/25/17 -- Goal Details: Pt to bathe with transfer modified IND Goal Start Date End Date [facility] 4 10/25/17 -- Goal Details: Pt to toilet with transfer modified IND Goal Start Date End Date [facility] 5 10/25/17 -- Goal Details: Pt to complete UE HEP with IND to promote IND with self care and functional transfers Problem: Cognitive: Start Date: 10/25/17 Goal Start Date End Date [facility] 1 10/25/17 -- Goal Details: Patient will execute multiple elements of a task with supervision Goal Start Date End Date [facility] 2 10/25/17 -- Goal Details: Patient will increase problem solving to complete tasks at 90% or with supervision Problem: Physical Regulation: Start Date: 10/25/17 Goal Start Date End Date [facility] 3 10/25/17 -- Goal Details: Patient will increase general strength/coordination through various exercises with supervision until disch Problem: Respiratory: Start Date: 10/25/17 Goal Start Date End Date [facility] 4 10/25/17 -- Goal Details: Patient will maintain/increase SPO2 by 1% in at least one session prior to disch Goal Start Date End Date [facility] 5 10/25/17 -- Goal Details: Patient will increase pulmonary function through various exercises with supervision until disch Problem: PT [facility] Start Date: 10/25/17 Goal Start Date End Date [facility] 1 10/25/17 -- Goal Details: Pt will roll SARAH and supine<-->sit EOB with supervision and bedrails as needed.Pt will sit<-->stand with minimum assist and appropriate assistive device. Pt will transfer bed<-->wheelchair/chair with minimum assist and appropriate assistive device. Goal Start Date End Date [facility] 2 10/25/17 -- Goal Details: Pt will ambulate 150' w/ minimum assist and appropriate assistive device. Pt will ambulate up/down 4 stairs with mod assist and SARAH rails. Goal Start Date End Date [facility] 3 10/25/17 -- Goal Details: Pt will propel WC 150' with supervision and extra time. Goal Start Date End Date [facility] - [facility] 4 10/25/17 -- Goal Details: Pt will complete SARAH LE HEP x15 reps with supervision. Goal Start Date End Date [facility] 5 10/25/17 -- Goal Details: Pt and/or [...] List/ Comorbidities: Active Problems: Chronic atrial fibrillation ([facility]) Former smoker COPD (chronic obstructive pulmonary disease) ([facility]) Hypercapnic respiratory failure ([facility]) Diskitis Pneumonia Hyponatremia MEDICAL PLAN: 1. Debility: [...] prior tobacco abuse. 4. Dysphagia: ??S/p PEG. 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 ??Aspiration precautions 5. Dm2: ??A1c [...] Daily, Rachna Burt MD, 20 mg at [id number] ??? bacitracin 500 unit/gram ointment packet 1 [...] oral, Q15 Min PRN, Jason Shore Jr., CAR FERRY MASTER ??? dextrose 50% (concentrated solution) CONCENTRATED solution 25 g, 25 g, intravenous, Q15 Min PRN, Jason Shore Jr., CAR FERRY MASTER ??? diphenhydrAMINE (BENADRYL) tab/cap 25 mg, 25 [...] intramuscular, Q30 Min PRN, Jason Shore Jr., CAR FERRY MASTER ??? ipratropium-albuterol (DUO-NEB) 0.5-2.5 mg/3 mL nebulizer [...] g, oral, BID PRN, Jason Shore Jr., CAR FERRY MASTER, 17 g at 11/03/17 0805 ??? senna [...] OT Communication: decreased vocal strength at times. MOBILE LOUNGE DRIVER Cognition: WFL MOBILE LOUNGE DRIVER Communication: WFL MOBILE LOUNGE DRIVER Swallowing: WFL: Regular consistency with thin liquids, [...] Frequency Start Date End Date Collaborate with machine brusher -- 10/24/17 -- Problem: Lack of Knowledge: [...] modified IND Goal Start [facility] 10[facility]17 -- Goal Details: Pt to bathe with transfer modified IND Goal Start Date End Date [facility] 4 10/25/17 -- Goal Details: Pt to toilet with transfer modified IND Goal Start Date End Date [facility] 5 10/25/17 -- Goal Details: Pt to complete UE HEP with IND to promote IND with self care and functional transfers Problem: Cognitive: Start Date: 10/25/17 Goal Start Date End Date [facility] 1 10/25/17 -- Goal Details: Patient will execute multiple elements of a task with supervision Goal Start Date End Date [facility] 2 10/25/17 -- Goal Details: Patient will increase problem solving to complete tasks at 90% or with supervision Problem: Physical Regulation: Start Date: 10/25/17 Goal Start Date End Date [facility] 3 10/25/17 -- Goal Details: Patient will increase general strength/coordination through various exercises with supervision until disch Problem: Respiratory: Start Date: 10/25/17 Goal Start Date End Date [facility] 4 10/25/17 -- Goal Details: Patient will maintain/increase SPO2 by 1% in at least one session prior to disch Goal Start Date End Date [facility] 5 10/25/17 -- Goal Details: Patient will increase pulmonary function through various exercises with supervision until disch Problem: PT [facility] Start Date: 10/25/17 Goal Start Date End Date [facility] 1 10/25/17 -- Goal Details: Pt will roll SARAH and supine<-->sit EOB with supervision and bedrails as needed.Pt will sit<-->stand with minimum assist and appropriate assistive device. Pt will transfer bed<-->wheelchair/chair with minimum assist and appropriate assistive device. Goal Start Date End Date [facility] 2 10/25/17 -- Goal Details: Pt will ambulate 150' w/ minimum assist and appropriate assistive device. Pt will ambulate up/down 4 stairs with mod assist and SARAH rails. Goal Start Date End Date [facility] 3 10/25/17 -- Goal Details: Pt will propel WC 150' with supervision and extra time. Goal Start Date End Date [facility] 4 10/25/17 -- Goal Details: Pt will complete SARAH LE HEP x15 reps with supervision. Goal Start Date End Date G - [facility] 5 10/25/17 -- Goal Details: Pt and/or [...] oral, TID with meals, Jason Shore Jr., CAR FERRY MASTER, 5 mg at 11/05/17 1137 ??? bisacodyl [...] 1 patch, transdermal, Daily, Jason Shore Jr., CAR FERRY MASTER, 1patch at 11/05/17 0938 ??? metoprolol (LOPRESSOR) [...] g, oral, BID PRN, Jason Shore Jr., CAR FERRY MASTER, 17 g at 11/03/17 0805 ??? senna [...] intramuscular, Q30 Min PRN, Jason Shore Jr., CAR FERRY MASTER ??? ipratropium-albuterol (DUO-NEB) 0.5-2.5 mg/3 mL nebulizer solution 3 mL, 3 mL, nebulization, Q4H PRN (RT), Rachna Burt MD ??? lidocaine (LIDODERM) 5 % patch 1 patch, 1 patch, transdermal, Daily, Jason Shore Jr., CAR FERRY MASTER, Stopped at 11/04/172233 ??? metoprolol (LOPRESSOR) tablet [...] g, oral, BID PRN, Jason Shore Jr., CAR FERRY MASTER, 17 g at 11/03/17 0805 ??? senna [...] for pneumonia, empyema prior to transfer to [facility]. Finished Bactrim for stenotrophomonas pneumonia here. Two-view chest x-ray much better. Continue to observe off antibiotics. Diskitis Assessment & Plan Completed debridement, prolonged antibiotic therapy for an L1 diskitis. Continue physical therapy, pain control Hypercapnic respiratory failure ([facility]) Assessment & Plan Successfully decannulated. Comfortable on room air. Doing well without BiPAP COPD (chronic obstructive pulmonary disease) ([facility]) Assessment & Plan Pulmonary function testing when stable. Continue inhaled bronchodilator therapy. Lungs are clear Former smoker Assessment & Plan May meet criteria for lung cancer screen Chronic atrial fibrillation ([facility]) Assessment & Plan Hemodynamically stable. Monitor for [...] List/ Comorbidities: Active Problems: Chronic atrial fibrillation ([facility]) Former smoker COPD (chronic obstructive pulmonary disease) ([facility]) Hypercapnic respiratory failure ([facility]) Diskitis Pneumonia Hyponatremia MEDICAL PLAN: 1. Debility: [...] prior tobacco abuse. 4. Dysphagia: ??S/p PEG. 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 ??Aspiration precautions 5. Dm2: ??A1c [...] oral, TID with meals, Jason Shore Jr., CAR FERRY MASTER, 5 mg at 11/04/17836 ??? bisacodyl (DULCOLAX) [...] intravenous, Q15 Min PRN, Jason Shore Jr., CAR FERRY MASTER ??? diphenhydrAMINE (BENADRYL) tab/cap 25 mg, 25 [...] intramuscular, Q30 Min PRN, Jason Shore Jr., CAR FERRY MASTER ??? ipratropium-albuterol (DUO-NEB) 0.5-2.5 mg/3 mL nebulizer solution 3 mL, 3 mL, nebulization, Q4H PRN (RT), Rachna Burt MD ??? lidocaine (LIDODERM) 5 % patch 1 patch, 1 patch, transdermal, Daily, Jason Shore Jr., CAR FERRY MASTER, 1patch at 11/04/17 0837 ??? metoprolol (LOPRESSOR) [...] g, oral, BID PRN, Jason Shore Jr., CAR FERRY MASTER, 17 g at 11/03/17 0805 ??? senna [...] OT Communication: decreased vocal strength at times. MOBILE LOUNGE DRIVER Cognition: WFL MOBILE LOUNGE DRIVER Communication: WFL MOBILE LOUNGE DRIVER Swallowing: WFL: Regular consistency with thin liquids, tolerating diet well Patient/caregiver goals:Patient and Family Goals: to return home Pre hospital Living environment: Home Setting: [facility] level home Prehospital Lives With: Spouse;Adult children [...] Frequency Start Date End Date Collaborate with machine brusher -- 10/24/17 -- Problem: Lack of Knowledge: [...] 10/25/17 -- Goal Start Date End Date [facility] - Patient performs or directs assisted coughing [...] Date: 10/25/17 Goal Start Date End Date [facility] - Pain is manageable through therapies 10/25/17 -- Goal Start Date End Date [facility] - Patient will verbalize an acceptable level of pain 10/25/17 -- Problem: OT Misc Start Date: 10/25/17 Goal Start Date End Date [facility] 1 10/25/17 -- Goal Details: Pt to dress modified IND Goal Start Date End Date [facility] 2 10/25/17 -- Goal Details: Pt to groom modified IND Goal Start Date End Date [facility] 3 10/25/17 -- Goal Details: Pt to bathe with transfer modified IND Goal Start Date End Date [facility] 4 10/25/17 -- Goal Details: Pt to toilet with transfer modified IND Goal Start Date End Date [facility] 5 10/25/17 -- Goal Details: Pt to complete UE HEP with IND to promote IND with self care and functional transfers Problem: Cognitive: Start Date: 10/25/17 Goal Start Date End Date [facility] 1 10/25/17 -- Goal Details: Patient will execute multiple elements of a task with supervision Goal Start Date End Date [facility] 2 10/25/17 -- Goal Details: Patient will increase problem solving to complete tasks at 90% or with supervision Problem: Physical Regulation: Start Date: 10/25/17 Goal Start Date End Date [facility] 3 10/25/17 -- Goal Details: Patient will increase general strength/coordination through various exercises with supervision until disch Problem: Respiratory: Start Date: 10/25/17 Goal Start Date End Date [facility] 4 10/25/17 -- Goal Details: Patient will maintain/increase SPO2 by 1% in at least one session prior to disch Goal Start Date End Date [facility] 5 10/25/17 -- Goal Details: Patient will increase pulmonary function through various exercises with supervision until disch Problem: PT [facility] Start Date: 10/25/17 Goal Start Date End Date [facility] 1 10/25/17 -- Goal Details: Pt will roll SARAH and supine<-->sit EOB with supervision and bedrails as needed.Pt will sit<-->stand with minimum assist and appropriate assistive device. Pt will transfer bed<-->wheelchair/chair with minimum assist and appropriate assistive device. Goal Start Date End Date [facility] 2 10/25/17 -- Goal Details: Pt will ambulate 150' w/ minimum assist and appropriate assistive device. Pt will ambulate up/down 4 stairs with mod assist and SARAH rails. Goal Start Date End Date [facility] 3 10/25/17 -- Goal Details: Pt will propel WC 150' with supervision and extra time. Goal Start Date End Date [facility] 4 10/25/17 -- Goal Details: Pt will complete SARAH LE HEP x15 reps with supervision. Goal Start Date End Date [facility] 5 10/25/17 -- Goal Details: Pt and/or [...] mg, rectal, Daily PRN, Jason Shore Jr., CAR FERRY MASTER, 10 mg at 10/29/172138 ??? bisacodyl EC (DULCOLAX EC) tablet 5 mg, 5 mg, oral, BID PRN, Jason Shore Jr. CAR FERRY MASTER, 5 mg at 10/29/17 1329 ??? budesonide-formoterol [...] oral, Q15 Min PRN, Jason Shore Jr., CAR FERRY MASTER ??? dextrose 50% (concentrated solution) CONCENTRATED solution 25 g, 25 g, intravenous, Q15 Min PRN, Jason Shore Jr., CAR FERRY MASTER ??? diphenhydrAMINE (BENADRYL) tab/cap 25 mg, 25 [...] g, oral, BID PRN, Jason Shore Jr., CAR FERRY MASTER, 17 g at 11/03/17 08 ??? senna [...] for pneumonia, empyema prior to transfer to [facility]. Finished Bactrim for stenotrophomonas pneumonia here. Two-view chest x-ray much better Diskitis Assessment & Plan Completed debridement, prolonged antibiotic therapy for an L1 diskitis. Has had some back pain. Hypercapnic respiratory failure (CMS/HCC) Assessment & Plan Successfully decannulated. Comfortable on room air. Did well without BiPAP last night COPD (chronic obstructive pulmonary disease) (CMS/[facility]) Assessment & Plan Pulmonary function testing when stable. Continue inhaled bronchodilator therapy. Former smoker Assessment & Plan May meet criteria for lung cancer screen Chronic atrial fibrillation ([facility]) Assessment & Plan Hemodynamically stable. Monitor for [...] Burt MD - 11/03/2017 11:35 AM CDT [facility] NAME: José Miguel [...] prior tobacco abuse. 4. Dysphagia: ??S/p PEG. 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 ??Aspiration precautions 5. Dm2: ??A1c [...] BID, Rachna Burt MD, 200 mg at [id number] ??? apixaban (ELIQUIS) tablet 5 mg, 5 [...] mg, rectal, Daily PRN, Jason Shore Jr., CAR FERRY MASTER, 10 mg at 10/29/17 2139 ??? bisacodyl EC (DULCOLAX EC) tablet 5 mg, 5 mg, oral, BID PRN, Jason Shore Jr., CAR FERRY MASTER, 5 mg at 10/29/17 1329 ??? budesonide-formoterol [...] oral, Q15 Min PRN, Jason Shore Jr., CAR FERRY MASTER ??? dextrose 50% (concentrated solution) CONCENTRATED solution 25 g, 25 g, intravenous, Q15 Min PRN, Jason Shore Jr., CAR FERRY MASTER ??? diphenhydrAMINE (BENADRYL) tab/cap 25 mg, 25 [...] g, oral, BID PRN, Jason Shore Jr., CAR FERRY MASTER, 17 g at 11/03/17 0805 ??? senna [...] OT Communication: decreased vocal strength at times. MOBILE LOUNGE DRIVER Cognition: WFL MOBILE LOUNGE DRIVER Communication: WFL MOBILE LOUNGE DRIVER Swallowing: WFL: Regular consistency with thin liquids, [...] Frequency Start Date End Date Collaborate with machine brusher -- 10/24/17 -- Problem: Lack of Knowledge: [...] Date: 10/25/17 Goal Start Date End Date [facility] 1 10/25/17 -- Goal Details: Pt to dress modified IND Goal Start Date End Date [facility] 2 10/25/17 -- Goal Details: Pt to groom modified IND Goal Start Date End Date [facility] 3 10/25/17 -- Goal Details: Pt to bathe with transfer modified IND Goal Start Date End Date [facility] 4 10/25/17 -- Goal Details: Pt to toilet with transfer modified IND Goal Start Date End Date [facility] 5 10/25/17 -- Goal Details: Pt to complete UE HEP with IND to promote IND with self care and functional transfers Problem: Cognitive: Start Date: 10/25/17 Goal Start Date End Date [facility] 1 10/25/17 -- Goal Details: Patient will execute multiple elements of a task with supervision Goal Start Date End Date [facility] 2 10/25/17 -- Goal Details: Patient will increase problem solving to complete tasks at 90% or with supervision Problem: Physical Regulation: Start Date: 10/25/17 Goal Start Date End Date [facility] 3 10/25/17 -- Goal Details: Patient will increase general strength/coordination through various exercises with supervision until disch Problem: Respiratory: Start Date: 10/25/17 Goal Start Date End Date [facility] 4 10/25/17 -- Goal Details: Patient will maintain/increase SPO2 by 1% in at least one session prior to disch Goal Start Date End Date [facility] 5 10/25/17 -- Goal Details: Patient will increase pulmonary function through various exercises with supervision until disch Problem: PT [facility] Start Date: 10/25/17 Goal Start Date End Date [facility] 1 10/25/17 -- Goal Details: Pt will roll SARAH and supine<-->sit EOB with supervision and bedrails as needed.Pt will sit<-->stand with minimum assist and appropriate assistive device. Pt will transfer bed<-->wheelchair/chair with minimum assist and appropriate assistive device. Goal Start Date End Date [facility] 2 10/25/17 -- Goal Details: Pt will ambulate 150' w/ minimum assist and appropriate assistive device. Pt will ambulate up/down 4 stairs with mod assist and SARAH rails. Goal Start Date End Date [facility] 3 10/25/17 -- Goal Details: Pt will propel WC 150' with supervision and extra time. Goal Start Date End Date [facility] 4 10/25/17 -- Goal Details: Pt will complete SARAH LE HEP x15 reps with supervision. Goal Start Date End Date [facility] 5 10/25/17 -- Goal Details: Pt and/or [...] mg, rectal, Daily PRN, Jason Shore Jr., CAR FERRY MASTER, 10 mg at 10/29/172138 ??? bisacodyl EC (DULCOLAX EC) tablet 5 mg, 5 mg, oral, BID PRN, Jason Shore Jr., CAR FERRY MASTER, 5 mg at 10/29/17 1329 ??? budesonide-formoterol [...] oral, Q15 Min PRN, Jason Shore Jr., CAR FERRY MASTER ??? dextrose 50% (concentrated solution) CONCENTRATED solution 25 g, 25 g, intravenous, Q15 Min PRN, Jason Shore Jr., CAR FERRY MASTER ??? diphenhydrAMINE (BENADRYL) tab/cap 25 mg, 25 [...] 1 patch, transdermal, Daily, Jason Shore Jr., CAR FERRY MASTER, Stopped at 11/02/17 1915 ??? metoprolol (LOPRESSOR) [...] g, oral, BID PRN, Jason Shore Jr., CAR FERRY MASTER, 17 g at 10/29/17 0842 ??? senna [...] for pneumonia, empyema prior to transfer to [facility]. Finished Bactrim for stenotrophomonas pneumonia here. Two-view chest x-ray much better Diskitis Assessment & Plan Completed debridement, prolonged antibiotic therapy for an L1 diskitis. Has had some back pain. Hypercapnic respiratory failure (CMS/HCC) Assessment & Plan Successfully decannulated. Comfortable on room air. Discontinue BiPAP COPD (chronic obstructive pulmonary disease) ([facility]) Assessment & Plan Pulmonary function testing when stable. Continue inhaled bronchodilator therapy. Former smoker Assessment & Plan May meet criteria for lung cancer screen Chronic atrial fibrillation ([facility]) Assessment & Plan Hemodynamically stable. Monitor for [...] List/ Comorbidities: Active Problems: Chronic atrial fibrillation ([facility]) Former smoker COPD (chronic obstructive pulmonary disease) ([facility]) Hypercapnic respiratory failure ([facility]) Diskitis Pneumonia Hyponatremia MEDICAL PLAN: 1. Debility: [...] prior tobacco abuse. 4. Dysphagia: ??S/p PEG. 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 ??Aspiration precautions 5. Dm2: ??A1c [...] mg, rectal, Daily PRN, Jason Shore Jr. CAR FERRY MASTER, 10 mg at 10/29/17 2139 ??? bisacodyl EC (DULCOLAX EC) tablet 5 mg, 5 mg, oral, BID PRN, Jason Shore Jr. CAR FERRY MASTER, 5 mg at 10/29/17 1329 ??? budesonide-formoterol [...] oral, Q15 Min PRN, Jason Shore Jr., CAR FERRY MASTER ??? dextrose 50% (concentrated solution) CONCENTRATED solution 25 g, 25 g, intravenous, Q15 Min PRN, Jason Shore Jr., CAR FERRY MASTER ??? diphenhydrAMINE (BENADRYL) tab/cap 25 mg, 25 mg, oral, TID PRN, Rachna Burt MD ??? docusate sodium (COLACE) capsule 100 mg, 100 mg, oral, BID, Jason Shore Jr., CAR FERRY MASTER, 100 mg at 11/02/17718 ??? ergocalciferol (VITAMIN D) capsule 50,000 Units, 50,000 Units, oral, Weekly, Adam Pastor MD, 50,000 Units at 11/02/17718 ??? glucagon injection 1 mg, 1 mg, intramuscular, Q30 Min PRN, Jason Shore Jr., CAR FERRY MASTER ??? ipratropium-albuterol (DUO-NEB) 0.5-2.5 mg/3 mL nebulizer solution 3 mL, 3 mL, nebulization, Q4H PRN (RT), Rachna Burt MD ??? lidocaine (LIDODERM) 5 % patch 1 patch, 1 patch, transdermal, Daily, Jason Shore Jr., CAR FERRY MASTER, 1patch at 11/02/17714 ??? metoprolol (LOPRESSOR) tablet [...] g, oral, BID PRN, Jason Shore Jr., CAR FERRY MASTER, 17 g at 10/29/17 0842 ??? senna [...] supervision and extra time + gloves toimprove partner management consultant. PM: transfers WC-->standing frame with total assist [...] OT Communication: decreased vocal strength at times. MOBILE LOUNGE DRIVER Cognition: WFL MOBILE LOUNGE DRIVER Communication: WFL MOBILE LOUNGE DRIVER Swallowing: WFL: Regular consistency with thin liquids, [...] Frequency Start Date End Date Collaborate with machine brusher -- 10/24/17 -- Problem: Lack of Knowledge: [...] Date: 10/25/17 Goal Start Date End Date [facility] 1 10/25/17 -- Goal Details: Pt to dress modified IND Goal Start Date End Date [facility] 2 10/25/17 -- Goal Details: Pt to groom modified IND Goal Start Date End Date [facility] 3 10/25/17 -- Goal Details: Pt to bathe with transfer modified IND Goal Start Date End Date [facility] 4 10/25/17 -- Goal Details: Pt to toilet with transfer modified IND Goal Start Date End Date [facility] 5 10/25/17 -- Goal Details: Pt to complete UE HEP with IND to promote IND with self care and functional transfers Problem: Cognitive: Start Date: 10/25/17 Goal Start Date End Date [facility] 1 10/25/17 -- Goal Details: Patient will execute multiple elements of a task with supervision Goal Start Date End Date [facility] 2 10/25/17 -- Goal Details: Patient will increase problem solving to complete tasks at 90% or with supervision Problem: Physical Regulation: Start Date: 10/25/17 Goal Start Date End Date [facility] 3 10/25/17 -- Goal Details: Patient will increase general strength/coordination through various exercises with supervision until disch Problem: Respiratory: Start Date: 10/25/17 Goal Start Date End Date [facility] 4 10/25/17 -- Goal Details: Patient will maintain/increase SPO2 by 1% in at least one session prior to disch Goal Start Date End Date [facility] 5 10/25/17 -- Goal Details: Patient will increase pulmonary function through various exercises with supervision until disch Problem: PT [facility] Start Date: 10/25/17 Goal Start Date End Date [facility] 1 10/25/17 -- Goal Details: Pt will roll SARAH and supine<-->sit EOB with supervision and bedrails as needed.Pt will sit<-->stand with minimum assist and appropriate assistive device. Pt will transfer bed<-->wheelchair/chair with minimum assist and appropriate assistive device. Goal Start Date End Date [facility] 2 10/25/17 -- Goal Details: Pt will ambulate 150' w/ minimum assist and appropriate assistive device. Pt will ambulate up/down 4 stairs with mod assist and SARAH rails. Goal Start Date End Date [facility] 3 10/25/17 -- Goal Details: Pt will propel WC 150' with supervision and extra time. Goal Start Date End Date [facility] 4 10/25/17 -- Goal Details: Pt will complete SARAH LE HEP x15 reps with supervision. Goal Start Date End Date [facility] 5 10/25/17 -- Goal Details: Pt and/or [...] 0.5 mg, 0.5 mg, oral, Daily, Александр Espnio Jr., MD, 0.5 mg at 11/02/17717 ??? chlorhexidine (PERIDEX) 0.12 % solution 5 mL, 5 mL, mouth/throat, BID, Rachna Burt MD, 5 mL at 11/02/17724 ??? collagenase 250 unit/gram ointment, , topical, Daily, Rachna Burt MD ??? dextrose (GLUTOSE) 40 % gel 15 g, 15 g, oral, Q15 Min PRN, Jason Shore Jr., CAR FERRY MASTER ??? dextrose 50% (concentrated solution) CONCENTRATED solution 25 g, 25 g, intravenous, Q15 Min PRN, Jason Shore Jr., CAR FERRY MASTER ??? diphenhydrAMINE (BENADRYL) tab/cap 25 mg, 25 mg, oral, TID PRN, Rachna Burt MD ??? docusate sodium (COLACE) capsule 100 mg, 100 mg, oral, BID, Jason Shore Jr., CAR FERRY MASTER, 100 mg at 11/02/17718 ??? ergocalciferol (VITAMIN [...] 1 patch, transdermal, Daily, Jason Shore Jr. CAR FERRY MASTER, 1patch at 11/02/17714 ??? metoprolol (LOPRESSOR) tablet [...] g, oral, BID PRN, Jason Shore Jr., CAR FERRY MASTER, 17 g at 10/29/17 0842 ??? senna [...] for pneumonia, empyema prior to transfer to [facility]. Finished Bactrim for stenotrophomonas pneumonia here. Two-view chest x-ray much better Diskitis Assessment & Plan Completed debridement, prolonged antibiotic therapy for an L1 diskitis. Has had some back pain. Hypercapnic respiratory failure ([facility]) Assessment & Plan Successfully decannulated. FiO2 to maintain a saturation of 90%. Continue BiPAP at night. Evaluate for home oxygen closer to discharge. Normal pCO2. May very well not need BiPAP at home COPD (chronic obstructive pulmonary disease) ([facility]) Assessment & Plan Pulmonary function testing when stable. Continue inhaled bronchodilator therapy. Former smoker Assessment & Plan May meet criteria for lung cancer screen Chronic atrial fibrillation ([facility]) Assessment & Plan Hemodynamically stable. Monitor for [...] major errors, please contact me * Haley Johnson, RD - 11/01/2017 2:20 PM CDT Nutrition [...] Adult Diet Regular Diet effective now Question: ([facility]) Diet type Answer: Regular 10/27/17 1421 10/25/17 [...] List/ Comorbidities: Active Problems: Chronic atrial fibrillation ([facility]) Former smoker COPD (chronic obstructive pulmonary disease) ([facility]) Hypercapnic respiratory failure ([facility]) Diskitis Pneumonia Hyponatremia MEDICAL PLAN: 1. Debility: [...] prior tobacco abuse. 4. Dysphagia: ??S/p PEG. 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 ??Aspiration precautions 5. Dm2: ??A1c [...] oral, Q15 Min PRN, Jason Shore Jr., CAR FERRY MASTER ??? dextrose 50% (concentrated solution) CONCENTRATED solution 25 g, 25 g, intravenous, Q15 Min PRN, Jason Shore Jr., CAR FERRY MASTER ??? diphenhydrAMINE (BENADRYL) tab/cap 25 mg, 25 mg, oral, TID PRN, Rachna Burt MD ??? docusate sodium (COLACE) capsule 100 mg, 100 mg, oral, BID, Jason Shore Jr. CAR FERRY MASTER, 100 mg at 11/01/1713 ??? ergocalciferol (VITAMIN [...] g, oral, BID PRN, Jason Shore Jr., CAR FERRY MASTER, 17 g at 10/29/17 0842 ??? senna [...] hospital gloves on both hands to improve traction/partner management consultant with propulsion. Pt able to stand 4x [...] OT Communication: decreased vocal strength at times. MOBILE LOUNGE DRIVER Cognition: WFL MOBILE LOUNGE DRIVER Communication: WFL MOBILE LOUNGE DRIVER Swallowing: WFL: Regular consistency with thin liquids, [...] Frequency Start Date End Date Collaborate with machine brusher -- 10/24/17 -- Problem: Lack of Knowledge: [...] modified IND Goal Start Date End Date [facility] 3 10/25/17 -- Goal Details: Pt to bathe with transfer modified IND Goal Start Date End Date [facility] 4 10/25/17 -- Goal Details: Pt to toilet with transfer modified IND Goal Start Date End Date [facility] 5 10/25/17 -- Goal Details: Pt to complete UE HEP with IND to promote IND with self care and functional transfers Problem: Cognitive: Start Date: 10/25/17 Goal Start Date End Date [facility] 1 10/25/17 -- Goal Details: Patient will execute multiple elements of a task with supervision Goal Start Date End Date [facility] 2 10/25/17 -- Goal Details: Patient will increase problem solving to complete tasks at 90% or with supervision Problem: Physical Regulation: Start Date: 10/25/17 Goal Start Date End Date [facility] 3 10/25/17 -- Goal Details: Patient will increase general strength/coordination through various exercises with supervision until disch Problem: Respiratory: Start Date: 10/25/17 Goal Start Date End Date [facility] 4 10/25/17 -- Goal Details: Patient will maintain/increase SPO2 by 1% in at least one session prior to disch Goal Start Date End Date [facility] 5 10/25/17 -- Goal Details: Patient will increase pulmonary function through various exercises with supervision until disch Problem: PT [facility] Start Date: 10/25/17 Goal Start Date End Date [facility] 1 10/25/17 -- Goal Details: Pt will roll SARAH and supine<-->sit EOB with supervision and bedrails as needed.Pt will sit<-->stand with minimum assist and appropriate assistive device. Pt will transfer bed<-->wheelchair/chair with minimum assist and appropriate assistive device. Goal Start Date End Date [facility] 2 10/25/17 -- Goal Details: Pt will ambulate 150' w/ minimum assist and appropriate assistive device. Pt will ambulate up/down 4 stairs with mod assist and SARAH rails. Goal Start Date End Date [facility] 3 10/25/17 -- Goal Details: Pt will propel WC 150' with supervision and extra time. Goal Start Date End Date [facility] - [facility] 4 10/25/17 -- Goal Details: Pt will complete SARAH LE HEP x15 reps with supervision. Goal Start Date End Date [facility] - [facility] 5 10/25/17 -- Goal Details: Pt and/or [...] 650 mg, 650 mg, oral, Q4H PRN, Rahcna Burt MD, 650 mg at 10/31/172156 ??? [...] tablet 20 mg, 20 mg, oral, Daily, Rcahna Burt MD, 20 mg at ??? baclofen [...] oral, Q15 Min PRN, Jason Shore Jr., CAR FERRY MASTER ??? dextrose 50% (concentrated solution) CONCENTRATED solution 25 g, 25 g, intravenous, Q15 Min PRN, Jason Shore Jr., CAR FERRY MASTER ??? diphenhydrAMINE (BENADRYL) tab/cap 25 mg, 25 mg, oral, TID PRN, Rachna Burt MD ??? docusate sodium (COLACE) capsule 100 mg, 100 mg, oral, BID, Jason Shore Jr., CAR FERRY MASTER, 100 mg at 10/31/17 0812 ??? ergocalciferol [...] 1 patch, transdermal, Daily, Jason Shore Jr., CAR FERRY MASTER, Stopped at 10/31/170 ??? metoprolol (LOPRESSOR) tablet [...] for pneumonia, empyema prior to transfer to [facility]. Finished Bactrim for stenotrophomonas pneumonia here. Two-view [...] or major errors, please contact me * Adma Pastor MD - 10/31/2017 6:32 AM CDT [...] Rachna Burt MD, 650 mg at 10/30/17 0893 ??? albuterol (PROVENTIL,VENTOLIN) 2.5 mg/0.5 mL nebulizer [...] tablet 500 mg, 500 mg, oral, BID, Racnha Burt MD, 500 mg at 10/30/172214 ??? [...] mg, oral, BID PRN, Jason Shore Jr. CAR FERRY MASTER, 5 mg at 10/29/179 ??? budesonide-formoterol (SYMBICORT) 80-4.5 mcg/actuation inhaler 1 puff, 1 puff, inhalation, BID (RT), Rachna Burt MD, 1 puff at 10/30/172118 ??? bumetanide (BUMEX) tablet 0.5 mg, 0.5 mg, oral, Daily, Александр Epsino Jr., MD, 0.5 mg at 10/30/17 0841 [...] 100 mg, oral, BID, Jason Shore Jr., CAR FERRY MASTER, 100 mg at 10/30/17 1309 ??? ergocalciferol [...] g, oral, BID PRN, Jason Shore Jr., CAR FERRY MASTER, 17 g at 10/29/17 0842 ??? senna [...] prior tobacco abuse. 4. Dysphagia: S/p PEG. 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 Aspiration precautions 5. Dm2: A1c [...] mg, rectal, Daily PRN, Jason Shore Jr., CAR FERRY MASTER, 10 mg at 10/29/172138 ??? bisacodyl EC (DULCOLAX EC) tablet 5 mg, 5 mg, oral, BID PRN, Jsaon Shore Jr., CAR FERRY MASTER, 5 mg at 10/29/171328 ??? budesonide-formoterol (SYMBICORT) [...] g, 25 g, intravenous, Q15 Min PRN, aJson Shore Jr., BELLA ??? diphenhydrAMINE (BENADRYL) tab/cap 25 mg, 25 mg, oral, TID PRN, Rachna Burt MD ??? docusate sodium (COLACE) capsule 100 mg, 100 mg, oral, BID, Jason Shore Jr., CAR FERRY MASTER, 100 mg at 10/29/172139 ??? ergocalciferol (VITAMIN D) capsule 50,000 Units, 50,000 Units, oral, Weekly, dAam Pastor MD, 50,000 Units at 10/26/17 0802 [...] g, oral, BID PRN, Jason Shore Jr., CAR FERRY MASTER, 17 g at 10/29/17 0842 ??? senna [...] for pneumonia, empyema prior to transfer to [facility]. Completed Bactrim for stenotrophomonas pneumonia. Two-view chest x-ray today Diskitis Assessment & Plan Completed debridement, prolonged antibiotic therapy for an L1 diskitis. Has had some back pain. Hypercapnic respiratory failure ([facility]) Assessment & Plan Successfully decannulated. FiO2 to maintain a saturation of 90%. Continue BiPAP at night. Eventual evaluation for home noninvasive positive pressure ventilation at night. Arterial blood gas today COPD (chronic obstructive pulmonary disease) ([facility]) Assessment & Plan Pulmonary function testing when stable. Continue inhaled bronchodilator therapy. Former smoker Assessment & Plan May meet criteria for lung cancer screen Chronic atrial fibrillation ([facility]) Assessment & Plan Hemodynamically stable. Monitor for [...] List/ Comorbidities: Active Problems: Chronic atrial fibrillation ([facility]) Former smoker COPD (chronic obstructive pulmonary disease) ([facility]) Hypercapnic respiratory failure ([facility]) Diskitis Pneumonia Hyponatremia MEDICAL PLAN: 1. Debility: [...] prior tobacco abuse. 4. Dysphagia: ??S/p PEG. 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 ??Aspiration precautions 5. Dm2: ??A1c [...] mg, rectal, Daily PRN, Jason Shore Jr. CAR FERRY MASTER, 10 mg at 10/29/172138 ??? bisacodyl EC [...] oral, Q15 Min PRN, Jason Shore Jr., CAR FERRY MASTER ??? dextrose 50% (concentrated solution) CONCENTRATED solution 25 g, 25 g, intravenous, Q15 Min PRN, Jason Shore Jr., CAR FERRY MASTER ??? diphenhydrAMINE (BENADRYL) tab/cap 25 mg, 25 mg, oral, TID PRN, Rachna Burt MD ??? docusate sodium (COLACE) capsule 100 mg, 100 mg, oral, BID, Jason Shore Jr., CAR FERRY MASTER, 100 mg at 10/30/17 1309 ??? ergocalciferol [...] g, oral, BID PRN, Jason Shore Jr., CAR FERRY MASTER, 17 g at 10/29/1742 ??? senna (SENOKOT) [...] OT Communication: decreased vocal strength at times. MOBILE LOUNGE DRIVER Cognition: WFL MOBILE LOUNGE DRIVER Communication: WFL MOBILE LOUNGE DRIVER Swallowing: WFL: Regular consistency with thin liquids, [...] Frequency Start Date End Date Collaborate with machine brusher -- 10/24/17 -- Problem: Lack of Knowledge: [...] Date: 10/25/17 Goal Start Date End Date [facility] - Pain is manageable through therapies 10/25/17 -- Goal Start Date End Date [facility] - Patient will verbalize an acceptable level of pain 10/25/17 -- Problem: OT Misc Start Date: 10/25/17 Goal Start Date End Date [facility] 1 10/25/17 -- Goal Details: Pt to dress modified IND Goal Start Date End Date [facility] 2 10/25/17 -- Goal Details: Pt to groom modified IND Goal Start Date End Date [facility] 3 10/25/17 -- Goal Details: Pt to bathe with transfer modified IND Goal Start Date End Date [facility] 4 10/25/17 -- Goal Details: Pt to toilet with transfer modified IND Goal Start Date End Date [facility] 5 10/25/17 -- Goal Details: Pt to complete UE HEP with IND to promote IND with self care and functional transfers Problem: Cognitive: Start Date: 10/25/17 Goal Start Date End Date [facility] 1 10/25/17 -- Goal Details: Patient will execute multiple elements of a task with supervision Goal Start Date End Date [facility] 2 10/25/17 -- Goal Details: Patient will increase problem solving to complete tasks at 90% or with supervision Problem: Physical Regulation: Start Date: 10/25/17 Goal Start Date End Date [facility] 3 10/25/17 -- Goal Details: Patient will increase general strength/coordination through various exercises with supervision until disch Problem: Respiratory: Start Date: 10/25/17 Goal Start Date End Date [facility] 4 10/25/17 -- Goal Details: Patient will maintain/increase SPO2 by 1% in at least one session prior to disch Goal Start Date End Date [facility] 5 10/25/17 -- Goal Details: Patient will increase pulmonary function through various exercises with supervision until disch Problem: PT [facility] Start Date: 10/25/17 Goal Start Date End Date [facility] 1 10/25/17 -- Goal Details: Pt will roll SARAH and supine<-->sit EOB with supervision and bedrails as needed.Pt will sit<-->stand with minimum assist and appropriate assistive device. Pt will transfer bed<-->wheelchair/chair with minimum assist and appropriate assistive device. Goal Start Date End Date [facility] 2 10/25/17 -- Goal Details: Pt will ambulate 150' w/ minimum assist and appropriate assistive device. Pt will ambulate up/down 4 stairs with mod assist and SARAH rails. Goal Start Date End Date [facility] 3 10/25/17 -- Goal Details: Pt will propel WC 150' with supervision and extra time. Goal Start Date End Date [facility] 4 10/25/17 -- Goal Details: Pt will complete SARAH LE HEP x15 reps with supervision. Goal Start Date End Date [facility] 5 10/25/17 -- Goal Details: Pt and/or [...] mg, rectal, Daily PRN, Jason Shore Jr., CAR FERRY MASTER, 10 mg at 10/29/172138 ??? bisacodyl EC (DULCOLAX EC) tablet 5 mg, 5 mg, oral, BID PRN, Jason Shore Jr., NP, 5 mg at 10/29/17 1329 ??? budesonide-formoterol (SYMBICORT) 80-4.5 mcg/actuation inhaler 1 puff, 1 puff, inhalation, BID (RT), Rachna Burt MD, 1 puff at 10/29/172107 ??? bumetanide (BUMEX) tablet 0.5 mg, 0.5 mg, oral, Daily, лАександр Espino Jr., MD, 0.5 mg at 10/29/17 [...] 1 patch, transdermal, Daily, Jason Shore Jr., CAR FERRY MASTER, Stopped at 10/29/172139 ??? metoprolol (LOPRESSOR) tablet [...] g, oral, BID PRN, Jason Shore Jr., CAR FERRY MASTER, 17 g at 10/29/17 0842 ??? senna [...] prior tobacco abuse. 4. Dysphagia: S/p PEG. 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 Aspiration precautions 5. Dm2: A1c [...] Adam Pastor M.D. * Jason Shore Jr., CAR FERRY MASTER - 10/29/2017 7:38 AM CDT [facility] [...] List/ Comorbidities: Active Problems: Chronic atrial fibrillation ([facility]) Former smoker COPD (chronic obstructive pulmonary disease) ([facility]) Hypercapnic respiratory failure ([facility]) Diskitis Pneumonia Hyponatremia MEDICAL PLAN: 1. Debility: [...] prior tobacco abuse. 4. Dysphagia: ??S/p PEG. 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 ??Aspiration precautions 5. Dm2: ??A1c [...] mg, rectal, Daily PRN, Jason Shore Jr., CAR FERRY MASTER ??? bisacodyl EC (DULCOLAX EC) tablet 5 mg, 5 mg, oral, BID PRN, Jason Shore Jr., CAR FERRY MASTER ??? budesonide-formoterol (SYMBICORT) 80-4.5 mcg/actuation inhaler 1 [...] oral, Q15 Min PRN, Jason Shore Jr., CAR FERRY MASTER ??? dextrose 50% (concentrated solution) CONCENTRATED solution 25 g, 25 g, intravenous, Q15 Min PRN, Jason Shore Jr., CAR FERRY MASTER ??? diphenhydrAMINE (BENADRYL) tab/cap 25 mg, 25 mg, oral, TID PRN, Rachna Burt MD ??? docusate sodium (COLACE) capsule 100 mg, 100 mg, oral, BID, Jason Shore Jr., CAR FERRY MASTER ??? ergocalciferol (VITAMIN D) capsule 50,000 Units, 50,000 Units, oral, Weekly, Adam Pastor MD, 50,000 Units at 10/26/17 0802 ??? glucagon injection 1 mg, 1 mg, intramuscular, Q30 Min PRN, Jason Shore Jr., CAR FERRY MASTER ??? insulin lispro (HumaLOG) injection 1-2 Units, 1-2 Units, subcutaneous, Nightly, Jason Lilly, CAR FERRY MASTER ??? insulin lispro (HumaLOG) injection 1-3 Units, 1-3 Units, subcutaneous, TID with meals, Jason Shore Jr., CAR FERRY MASTER ??? ipratropium-albuterol (DUO-NEB) 0.5-2.5 mg/3 mL nebulizer solution 3 mL, 3 mL, nebulization, QID (RT), Александр Espino Jr., MD, 3 mL at 10/29/17 0635 ??? lidocaine (LIDODERM) 5 % patch 1 patch, 1 patch, transdermal, Daily, Jason Shore Jr., CAR FERRY MASTER ??? metoprolol (LOPRESSOR) tablet 12.5 mg, 12.5 [...] g, oral, BID PRN, Jason Shore Jr., CAR FERRY MASTER ??? senna (SENOKOT) tablet 1 tablet, 1 [...] Rachna Burt MD, 5 mg at 10/27/17 4109 Current functional status: PT Functional Mobility: WC<-->mat with max assist x1-2 via slide board, once to left side andonce to right side, performs seated SARHA LE and balance exercises, sit<-->supine with max [...] OT Communication: decreased vocal strength at times. MOBILE LOUNGE DRIVER Cognition: WFL MOBILE LOUNGE DRIVER Communication: WFL MOBILE LOUNGE DRIVER Swallowing: WFL: Regular consistency with thin liquids, [...] Frequency Start Date End Date Collaborate with machine brusher -- 10/24/17 -- Problem: Lack of Knowledge: [...] Date: 10/25/17 Goal Start Date End Date [facility] - Pain is manageable through therapies 10/25/17 -- Goal Start Date End Date [facility] - Patient will verbalize an acceptable level of pain 10/25/17 -- Problem: OT Misc Start Date: 10/25/17 Goal Start Date End Date [facility] 1 10/25/17 -- Goal Details: Pt to dress modified IND Goal Start Date End Date [facility] 2 10/25/17 -- Goal Details: Pt to groom modified IND Goal Start Date End Date [facility] 3 10/25/17 -- Goal Details: Pt to bathe with transfer modified IND Goal Start Date End Date [facility] 4 10/25/17 -- Goal Details: Pt to toilet with transfer modified IND Goal Start Date End Date [facility] 5 10/25/17 -- Goal Details: Pt to complete UE HEP with IND to promote IND with self care and functional transfers Problem: Cognitive: Start Date: 10/25/17 Goal Start Date End Date [facility] 1 10/25/17 -- Goal Details: Patient will execute multiple elements of a task with supervision Goal Start Date End Date [facility] 2 10/25/17 -- Goal Details: Patient will increase problem solving to complete tasks at 90% or with supervision Problem: Physical Regulation: Start Date: 10/25/17 Goal Start Date End Date [facility] 3 10/25/17 -- Goal Details: Patient will increase general strength/coordination through various exercises with supervision until disch Problem: Respiratory: Start Date: 10/25/17 Goal Start Date End Date [facility] 4 10/25/17 -- Goal Details: Patient will maintain/increase SPO2 by 1% in at least one session prior to disch Goal Start Date End Date [facility] 5 10/25/17 -- Goal Details: Patient will increase pulmonary function through various exercises with supervision until disch Problem: PT [facility] Start Date: 10/25/17 Goal Start Date End Date [facility] 1 10/25/17 -- Goal Details: Pt will roll SARAH and supine<-->sit EOB with supervision and bedrails as needed.Pt will sit<-->stand with minimum assist and appropriate assistive device. Pt will transfer bed<-->wheelchair/chair with minimum assist and appropriate assistive device. Goal Start Date End Date [facility] 2 10/25/17 -- Goal Details: Pt will ambulate 150' w/ minimum assist and appropriate assistive device. Pt will ambulate up/down 4 stairs with mod assist and SARAH rails. Goal Start Date End Date [facility] 3 10/25/17 -- Goal Details: Pt will propel WC 150' with supervision and extra time. Goal Start Date End Date [facility] 4 10/25/17 -- Goal Details: Pt will complete SARAH LE HEP x15 reps with supervision. Goal Start Date End Date [facility] 5 10/25/17 -- Goal Details: Pt and/or [...] oral, Q15 Min PRN, Jason Shore Jr., CAR FERRY MASTER ??? dextrose 50% (concentrated solution) CONCENTRATED solution 25 g, 25 g, intravenous, Q15 Min PRN, Jason Shore Jr., CAR FERRY MASTER ??? diphenhydrAMINE (BENADRYL) tab/cap 25 mg, 25 [...] intramuscular, Q30 Min PRN, Jason Shore Jr., CAR FERRY MASTER ??? insulin lispro (HumaLOG) injection 1-2 Units, 1-2 Units, subcutaneous, Nightly, Jason Lilly, CAR FERRY MASTER ??? insulin lispro (HumaLOG) injection 1-3 Units, 1-3 Units, subcutaneous, TID with meals, Jason Shore Jr., CAR FERRY MASTER ??? ipratropium-albuterol (DUO-NEB) 0.5-2.5 mg/3 mL nebulizer [...] for pneumonia, empyema prior to transfer to [facility]. Completed Bactrim for stenotrophomonas pneumonia Diskitis Assessment & Plan Completed debridement, prolonged antibiotic therapy for an L1 diskitis. Has had some back pain. Hypercapnic respiratory failure ([facility]) Assessment & Plan Successfully decannulated. FiO2 to maintain a saturation of 90%. Continue BiPAP at night. Eventual evaluation for home noninvasive positive pressure ventilation at night COPD (chronic obstructive pulmonary disease) ([facility]) Assessment & Plan Pulmonary function testing when stable. Continue inhaled bronchodilator therapy. Former smoker Assessment & Plan May meet criteria for lung cancer screen Chronic atrial fibrillation ([facility]) Assessment & Plan Hemodynamically stable. Monitor for [...] 0.5 mg, 0.5 mg, oral, Daily, Александр Epsino Jr., MD ??? chlorhexidine (PERIDEX) 0.12 % solution 5 mL, 5 mL, mouth/throat, BID, Rachna Burt MD, 5 mL at 10/28/172011 ??? collagenase 250 unit/gram ointment, , topical, Daily, Rachna Burt MD ??? dextrose (GLUTOSE) 40 % gel 15 g, 15 g, oral, Q15 Min PRN, Jason Shore Jr., CAR FERRY MASTER ??? dextrose 50% (concentrated solution) CONCENTRATED solution 25 g, 25 g, intravenous, Q15 Min PRN, Jason Shore Jr., CAR FERRY MASTER ??? diphenhydrAMINE (BENADRYL) tab/cap 25 mg, 25 [...] intramuscular, Q30 Min PRN, Jason Shore Jr., CAR FERRY MASTER ??? insulin lispro (HumaLOG) injection 1-2 Units, 1-2 Units, subcutaneous, Nightly, Jason Lilly, CAR FERRY MASTER ??? insulin lispro (HumaLOG) injection 1-3 Units, 1-3 Units, subcutaneous, TID with meals, Jason Shore Jr., CAR FERRY MASTER ??? ipratropium-albuterol (DUO-NEB) 0.5-2.5 mg/3 mL nebulizer [...] prior tobacco abuse. 4. Dysphagia: S/p PEG. 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 Aspiration precautions 5. Dm2: A1c [...] List/ Comorbidities: Active Problems: Chronic atrial fibrillation ([facility]) Former smoker COPD (chronic obstructive pulmonary disease) ([facility]) Hypercapnic respiratory failure ([facility]) Diskitis Pneumonia Hyponatremia MEDICAL PLAN: 1. Debility: [...] prior tobacco abuse. 4. Dysphagia: ??S/p PEG. 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 ??Aspiration precautions 5. Dm2: ??A1c [...] oral, Q15 Min PRN, Jason Shore Jr., CAR FERRY MASTER ??? dextrose 50% (concentrated solution) CONCENTRATED solution 25 g, 25 g, intravenous, Q15 Min PRN, Jason Shore Jr., CAR FERRY MASTER ??? diphenhydrAMINE (BENADRYL) tab/cap 25 mg, 25 [...] intramuscular, Q30 Min PRN, Jason Shore Jr., CAR FERRY MASTER ??? insulin lispro (HumaLOG) injection 1-2 Units, 1-2 Units, subcutaneous, Nightly, Jason Lilly, CAR FERRY MASTER ??? insulin lispro (HumaLOG) injection 1-3 Units, 1-3 Units, subcutaneous, TID with meals, Jason Shore Jr., CAR FERRY MASTER ??? ipratropium-albuterol (DUO-NEB) 0.5-2.5 mg/3 mL nebulizer [...] OT Communication: decreased vocal strength at times. MOBILE LOUNGE DRIVER Cognition: WFL MOBILE LOUNGE DRIVER Communication: WFL MOBILE LOUNGE DRIVER Swallowing: Mild: upgraded to regular consistency solids with thin liquids; whole pills Patient/caregiver goals:Patient and Family Goals: to return home with assistance Pre hospital Living environment: Home Setting: [facility] level home Prehospital Lives With: Spouse;Adult children [...] Frequency Start Date End Date Collaborate with machine brusher -- 10/24/17 -- Problem: Lack of Knowledge: [...] Date: 10/25/17 Goal Start Date End Date [facility] - Misc 1 10/25/17 -- Goal Details: Pt to dress modified IND Goal Start Date End Date [facility] - [facility] 2 10/25/17 -- Goal Details: Pt to groom modified IND Goal Start Date End [facility] 10[facility] -- Goal Details: Pt to bathe with transfer modified IND Goal Start Date End Date [facility] 4 10/25/17 -- Goal Details: Pt to toilet with transfer modified IND Goal Start Date End Date [facility] 5 10/25/17 -- Goal Details: Pt to complete UE HEP with IND to promote IND with self care and functional transfers Problem: MOBILE LOUNGE DRIVER [facility] Start Date: 10/25/17 Goal Start Date End Date [facility] 1 10/25/17 -- Goal Details: Patient will tolerate regular consistency with thin liquids without clinical overt s/s of aspiration. Goal Start Date End Date [facility] 2 10/25/17 -- Goal Details: Patient will complete 3 sets of 10 pharyngeal strengthening exercises Problem: Cognitive: Start Date: 10/25/17 Goal Start Date End Date [facility] 1 10/25/17 -- Goal Details: Patient will execute multiple elements of a task with supervision Goal Start Date End Date [facility] 2 10/25/17 -- Goal Details: Patient will increase problem solving to complete tasks at 90% or with supervision Problem: Physical Regulation: Start Date: 10/25/17 Goal Start Date End Date [facility] 3 10/25/17 -- Goal Details: Patient will increase general strength/coordination through various exercises with supervision until disch Problem: Respiratory: Start Date: 10/25/17 Goal Start Date End Date [facility] 4 10/25/17 -- Goal Details: Patient will maintain/increase SPO2 by 1% in at least one session prior to disch Goal Start Date End Date [facility] 5 10/25/17 -- Goal Details: Patient will increase pulmonary function through various exercises with supervision until disch Problem: PT [facility] Start Date: 10/25/17 Goal Start Date End Date [facility] 10/25/17 -- Goal Details: Pt will roll SARAH and supine<-->sit EOB with supervision and bedrails as needed.Pt will sit<-->stand with minimum assist and appropriate assistive device. Pt will transfer bed<-->wheelchair/chair with minimum assist and appropriate assistive device. Goal Start Date End Date [facility] 2 10/25/17 -- Goal Details: Pt will ambulate 150' w/ minimum assist and appropriate assistive device. Pt will ambulate up/down 4 stairs with mod assist and SARAH rails. Goal Start Date End Date [facility] 3 10/25/17 -- Goal Details: Pt will propel WC 150' with supervision and extra time. Goal Start Date End Date [facility] 4 10/25/17 -- Goal Details: Pt will complete SARAH LE HEP x15 reps with supervision. Goal Start Date End Date [facility] 5 10/25/17 -- Goal Details: Pt and/or [...] oral, Q15 Min PRN, Jason Shore Jr., CAR FERRY MASTER ??? dextrose 50% (concentrated solution) CONCENTRATED solution 25 g, 25 g, intravenous, Q15 Min PRN, Jason Shore Jr., CAR FERRY MASTER ??? diphenhydrAMINE (BENADRYL) tab/cap 25 mg, 25 [...] intramuscular, Q30 Min PRN, Jason Shore Jr., CAR FERRY MASTER ??? insulin lispro (HumaLOG) injection 1-2 Units, 1-2 Units, subcutaneous, Nightly, Jason Lilly, CAR FERRY MASTER ??? insulin lispro (HumaLOG) injection 1-3 Units, 1-3 Units, subcutaneous, TID with meals, Jason Shore Jr., CAR FERRY MASTER ??? ipratropium-albuterol (DUO-NEB) 0.5-2.5 mg/3 mL nebulizer [...] for pneumonia, empyema prior to transfer to [facility]. Currently on Bactrim for stenotrophomonas pneumonia. Chest x-ray improved Diskitis Assessment & Plan Completed debridement, prolonged antibiotic therapy for an L1 diskitis. Has had some back pain. Hypercapnic respiratory failure ([facility]) Assessment & Plan Successfully decannulated. FiO2 to maintain a saturation of 90%. Continue BiPAP at night. Eventual evaluation for home noninvasive positive pressure ventilation at night COPD (chronic obstructive pulmonary disease) ([facility]) Assessment & Plan Pulmonary function testing when stable. Continue inhaled bronchodilator therapy. Former smoker Assessment & Plan May meet criteria for lung cancer screen Chronic atrial fibrillation ([facility]) Assessment & Plan Hemodynamically stable. Has had problems with intermittent bleeding from trach site, skin tears andalso hematuria while in [facility]. Continues on apixaban. Monitor for bleeding. Consider [...] oral, Q15 Min PRN, Jason Shore Jr., CAR FERRY MASTER ??? dextrose 50% (concentrated solution) CONCENTRATED solution 25 g, 25 g, intravenous, Q15 Min PRN, Jason Shore Jr., CAR FERRY MASTER ??? diphenhydrAMINE (BENADRYL) tab/cap 25 mg, 25 [...] intramuscular, Q30 Min PRN, Jason Shore Jr., CAR FERRY MASTER ??? insulin lispro (HumaLOG) injection 1-2 Units, 1-2 Units, subcutaneous, Nightly, Jason Lilly, CAR FERRY MASTER ??? insulin lispro (HumaLOG) injection 1-3 Units, 1-3 Units, subcutaneous, TID with meals, Jason Shore Jr., CAR FERRY MASTER ??? ipratropium-albuterol (DUO-NEB) 0.5-2.5 mg/3 mL nebulizer solution 3 mL, 3 mL, nebulization, QID (RT), Александр Espino Jr., MD, 3 mL at 10/27/172054 ??? metoprolol (LOPRESSOR) tablet 12.5 mg, 12.5 mg, oral, BID, Rachna Burt MD, 12.5 mg at 10/27/172156 ??? miconazole 2 % powder, , topical, BID, Rachna Burt MD ??? ondansetron (ZOFRAN) tablet 4 mg, 4 mg, oral, Q4H PRN, Rcahna Burt MD ??? oxyCODONE (ROXICODONE) tablet 10 [...] mg, 5 mg, oral, Nightly PRN, Rachna Brut MD, 5 mg at 10/27/172156 SocHx: Social [...] prior tobacco abuse. 4. Dysphagia: S/p PEG. 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 Aspiration precautions 5. Dm2: A1c [...] List/ Comorbidities: Active Problems: Chronic atrial fibrillation ([facility]) Former smoker COPD (chronic obstructive pulmonary disease) ([facility]) Hypercapnic respiratory failure ([facility]) Diskitis Pneumonia Hyponatremia MEDICAL PLAN: 1. Debility: [...] prior tobacco abuse. 4. Dysphagia: ??S/p PEG. 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 ??Aspiration precautions 5. Dm2: ??A1c [...] oral, Q15 Min PRN, Jason Shore Jr., CAR FERRY MASTER ??? dextrose 50% (concentrated solution) CONCENTRATED solution 25 g, 25 g, intravenous, Q15 Min PRN, Jason Shore Jr., CAR FERRY MASTER ??? diphenhydrAMINE (BENADRYL) tab/cap 25 mg, 25 [...] intramuscular, Q30 Min PRN, Jason Shore Jr., CAR FERRY MASTER ??? insulin lispro (HumaLOG) injection 1-2 Units, 1-2 Units, subcutaneous, Nightly, Jason Lilly, CAR FERRY MASTER ??? insulin lispro (HumaLOG) injection 1-3 Units, 1-3 Units, subcutaneous, TID with meals, Jason Shore Jr., CAR FERRY MASTER ??? ipratropium-albuterol (DUO-NEB) 0.5-2.5 mg/3 mL nebulizer [...] OT Communication: decreased vocal strength at times. MOBILE LOUNGE DRIVER Cognition: WFL MOBILE LOUNGE DRIVER Communication: WFL MOBILE LOUNGE DRIVER Swallowing: Mild: Mechanical soft consistency with thin [...] Frequency Start Date End Date Collaborate with machine brusher -- 10/24/17 -- Problem: Lack of Knowledge: [...] Date: 10/25/17 Goal Start Date End Date [facility] 1 10/25/17 -- Goal Details: Pt to dress modified IND Goal Start Date End Date [facility] 2 10/25/17 -- Goal Details: Pt to groom modified IND Goal Start Date End Date [facility] 3 10/25/17 -- Goal Details: Pt to bathe with transfer modified IND Goal Start Date End Date [facility] 4 10/25/17 -- Goal Details: Pt to toilet with transfer modified IND Goal Start Date End Date [facility] 5 10/25/17 -- Goal Details: Pt to complete UE HEP with IND to promote IND with self care and functional transfers Problem: MOBILE LOUNGE DRIVER [facility] Start Date: 10/25/17 Goal Start Date End Date [facility] 1 10/25/17 -- Goal Details: Patient will tolerate regular consistency with thin liquids without clinical overt s/s of aspiration. Goal Start Date End Date [facility] 2 10/25/17 -- Goal Details: Patient will complete 3 sets of 10 pharyngeal strengthening exercises Problem: Cognitive: Start Date: 10/25/17 Goal Start Date End Date [facility] 1 10/25/17 -- Goal Details: Patient will execute multiple elements of a task with supervision Goal Start Date End Date [facility] 2 10/25/17 -- Goal Details: Patient will increase problem solving to complete tasks at 90% or with supervision Problem: Physical Regulation: Start Date: 10/25/17 Goal Start Date End Date [facility] 3 10/25/17 -- Goal Details: Patient will increase general strength/coordination through various exercises with supervision until disch Problem: Respiratory: Start Date: 10/25/17 Goal Start Date End Date [facility] 4 10/25/17 -- Goal Details: Patient will maintain/increase SPO2 by 1% in at least one session prior to disch Goal Start Date End Date [facility] 5 10/25/17 -- Goal Details: Patient will increase pulmonary function through various exercises with supervision until disch Problem: PT [facility] Start Date: 10/25/17 Goal Start Date End Date [facility] 1 10/25/17 -- Goal Details: Pt will roll SARAH and supine<-->sit EOB with supervision and bedrails as needed.Pt will sit<-->stand with minimum assist and appropriate assistive device. Pt will transfer bed<-->wheelchair/chair with minimum assist and appropriate assistive device. Goal Start Date End Date [facility] 2 10/25/17 -- Goal Details: Pt will ambulate 150' w/ minimum assist and appropriate assistive device. Pt will ambulate up/down 4 stairs with mod assist and SARAH rails. Goal Start Date End Date [facility] 3 10/25/17 -- Goal Details: Pt will propel WC 150' with supervision and extra time. Goal Start Date End Date [facility] 4 10/25/17 -- Goal Details: Pt will complete SARAH LE HEP x15 reps with supervision. Goal Start Date End Date [facility] - [facility] 5 10/25/17 -- Goal Details: Pt and/or [...] oral, Q15 Min PRN, Jason Shore Jr., CAR FERRY MASTER ??? dextrose 50% (concentrated solution) CONCENTRATED solution 25 g, 25 g, intravenous, Q15 Min PRN, Jason Shore Jr., CAR FERRY MASTER ??? diphenhydrAMINE (BENADRYL) tab/cap 25 mg, 25 [...] intramuscular, Q30 Min PRN, Jason Shore Jr., CAR FERRY MASTER ??? insulin lispro (HumaLOG) injection 1-2 Units, 1-2 Units, subcutaneous, Nightly, Jason Lilly, CAR FERRY MASTER ??? insulin lispro (HumaLOG) injection 1-3 Units, 1-3 Units, subcutaneous, TID with meals, Jason Shore Jr., CAR FERRY MASTER ??? ipratropium-albuterol (DUO-NEB) 0.5-2.5 mg/3 mL nebulizer [...] for pneumonia, empyema prior to transfer to [facility]. Currently on Bactrim for stenotrophomonas pneumonia. Chest x-ray improved Diskitis Assessment & Plan Completed debridement, prolonged antibiotic therapy for an L1 diskitis. Has had some back pain. Hypercapnic respiratory failure ([facility]) Assessment & Plan Successfully decannulated. FiO2 to maintain a saturation of 90%. Continue BiPAP at night. Eventual evaluation for home noninvasive positive pressure ventilation at night COPD (chronic obstructive pulmonary disease) ([facility]) Assessment & Plan Pulmonary function testing when stable. Continue inhaled bronchodilator therapy. Former smoker Assessment & Plan May meet criteria for lung cancer screen Chronic atrial fibrillation ([facility]) Assessment & Plan Hemodynamically stable. Has had [...] Past Medical History: Diagnosis Date ??? A-fib (CMS/[facility]) ??? A-fib (CMS/HCC) history ??? Chronic obstructive [...] oral, Q15 Min PRN, Jason Shore Jr., CAR FERRY MASTER ??? dextrose 50% (concentrated solution) CONCENTRATED solution 25 g, 25 g, intravenous, Q15 Min PRN, Jason Shore Jr., CAR FERRY MASTER ??? diphenhydrAMINE (BENADRYL) tab/cap 25 mg, 25 [...] intramuscular, Q30 Min PRN, Jason Shore Jr., CAR FERRY MASTER ??? insulin lispro (HumaLOG) injection 1-2 Units, 1-2 Units, subcutaneous, Nightly, Jason Lilly, CAR FERRY MASTER ??? insulin lispro (HumaLOG) injection 1-3 Units, 1-3 Units, subcutaneous, TID with meals, Jason Shore Jr., CAR FERRY MASTER ??? ipratropium-albuterol (DUO-NEB) 0.5-2.5 mg/3 mL nebulizer [...] prior tobacco abuse. 4. Dysphagia: S/p PEG. 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 Aspiration precautions 5. Dm2: A1c [...] List/ Comorbidities: Active Problems: Chronic atrial fibrillation ([facility]) Former smoker COPD (chronic obstructive pulmonary disease) ([facility]) Hypercapnic respiratory failure ([facility]) Diskitis Pneumonia MEDICAL PLAN: 1. Debility: ??Complicated [...] prior tobacco abuse. 4. Dysphagia: ??S/p PEG. 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 ??Aspiration precautions 5. Dm2: ??A1c [...] oral, Q15 Min PRN, Jason Shore Jr., CAR FERRY MASTER ??? dextrose 50% (concentrated solution) CONCENTRATED solution 25 g, 25 g, intravenous, Q15 Min PRN, Jason Shore Jr., CAR FERRY MASTER ??? diphenhydrAMINE (BENADRYL) tab/cap 25 mg, 25 [...] intramuscular, Q30 Min PRN, Jason Shore Jr., CAR FERRY MASTER ??? insulin lispro (HumaLOG) injection 1-2 Units, 1-2 Units, subcutaneous, Nightly, Jason Lilly, CAR FERRY MASTER ??? insulin lispro (HumaLOG) injection 1-3 Units, 1-3 Units, subcutaneous, TID with meals, Jason Shore Jr., CAR FERRY MASTER ??? ipratropium-albuterol (DUO-NEB) 0.5-2.5 mg/3 mL nebulizer [...] OT Communication: decreased vocal strength at times. MOBILE LOUNGE DRIVER Cognition: WFL MOBILE LOUNGE DRIVER Communication: WFL MOBILE LOUNGE DRIVER Swallowing: Mild: Mechanical soft consistency with thin [...] Frequency Start Date End Date Collaborate with machine brusher -- 10/24/17 -- Problem: Lack of Knowledge: [...] level of pain 10/25/17 -- Problem: OT [facility] Start Date: 10/25/17 Goal Start Date End Date [facility] 1 10/25/17 -- Goal Details: Pt to dress modified IND Goal Start Date End Date [facility] 2 10/25/17 -- Goal Details: Pt to groom modified IND Goal Start Date End Date [facility] 3 10/25/17 -- Goal Details: Pt to bathe with transfer modified IND Goal Start Date End Date [facility] 4 10/25/17 -- Goal Details: Pt to toilet with transfer modified IND Goal Start Date End Date [facility] 5 10/25/17 -- Goal Details: Pt to complete UE HEP with IND to promote IND with self care and functional transfers Problem: MOBILE LOUNGE DRIVER [facility] Start Date: 10/25/17 Goal Start Date End Date [facility] 1 10/25/17 -- Goal Details: Patient will tolerate regular consistency with thin liquids without clinical overt s/s of aspiration. Goal Start Date End Date [facility] 2 10/25/17 -- Goal Details: Patient will complete 3 sets of 10 pharyngeal strengthening exercises Problem: Cognitive: Start Date: 10/25/17 Goal Start Date End Date [facility] 1 10/25/17 -- Goal Details: Patient will execute multiple elements of a task with supervision Goal Start Date End Date [facility] 2 10/25/17 -- Goal Details: Patient will increase problem solving to complete tasks at 90% or with supervision Problem: Physical Regulation: Start Date: 10/25/17 Goal Start Date End Date [facility] 3 10/25/17 -- Goal Details: Patient will increase general strength/coordination through various exercises with supervision until disch Problem: Respiratory: Start Date: 10/25/17 Goal Start Date End Date [facility] 4 10/25/17 -- Goal Details: Patient will maintain/increase SPO2 by 1% in at least one session prior to disch Goal Start Date End Date [facility] 5 10/25/17 -- Goal Details: Patient will increase pulmonary function through various exercises with supervision until disch Problem: PT [facility] Start Date: 10/25/17 Goal Start Date End Date [facility] 1 10/25/17 -- Goal Details: Pt will roll SARAH and supine<-->sit EOB with supervision and bedrails as needed.Pt will sit<-->stand with minimum assist and appropriate assistive device. Pt will transfer bed<-->wheelchair/chair with minimum assist and appropriate assistive device. Goal Start Date End Date [facility] 2 10/25/17 -- Goal Details: Pt will ambulate 150' w/ minimum assist and appropriate assistive device. Pt will ambulate up/down 4 stairs with mod assist and SARAH rails. Goal Start Date End Date [facility] 3 10/25/17 -- Goal Details: Pt will propel WC 150' with supervision and extra time. Goal Start Date End Date [facility] 4 10/25/17 -- Goal Details: Pt will complete SARAH LE HEP x15 reps with supervision. Goal Start Date End Date [facility] 5 10/25/17 -- Goal Details: Pt and/or [...] oral, Q15 Min PRN, Jason Shore Jr., CAR FERRY MASTER ??? dextrose 50% (concentrated solution) CONCENTRATED solution 25 g, 25 g, intravenous, Q15 Min PRN, Jason Shore Jr., CAR FERRY MASTER ??? diphenhydrAMINE (BENADRYL) tab/cap 25 mg, 25 mg, oral, TID PRN, Rachna Burt MD ??? docusate sodium (COLACE) capsule 100 mg, 100 mg, oral, BID, Rachna Burt MD, 100 mg at 10/26/17801 ??? ergocalciferol (VITAMIN D) capsule 50,000 Units, 50,000 Units, oral, Weekly, Adam Pastor MD, 50,000 Units at 10/26/17801 ??? glucagon injection 1 mg, 1 mg, intramuscular, Q30 Min PRN, Jasno Shore Jr., CAR FERRY MASTER ??? insulin lispro (HumaLOG) injection 1-2 Units, 1-2 Units, subcutaneous, Nightly, Jason Lilly, CAR FERRY MASTER ??? insulin lispro (HumaLOG) injection 1-3 Units, 1-3 Units, subcutaneous, TID with meals, Jason Shore Jr., CAR FERRY MASTER ??? ipratropium-albuterol (DUO-NEB) 0.5-2.5 mg/3 mL nebulizer [...] for pneumonia, empyema prior to transfer to [facility]. Currently on Bactrim for stenotrophomonas pneumonia. Chest x-ray improved Diskitis Assessment & Plan Completed debridement, prolonged antibiotic therapy for an L1 diskitis. Has had some back pain. Hypercapnic respiratory failure ([facility]) Assessment & Plan Successfully decannulated. FiO2 to maintain a saturation of 90%. Continue BiPAP at night. Eventual evaluation for home noninvasive positive pressure ventilation at night COPD (chronic obstructive pulmonary disease) ([facility]) Assessment & Plan Pulmonary function testing when stable. Continue inhaled bronchodilator therapy. Former smoker Assessment & Plan May meet criteria for lung cancer screen Chronic atrial fibrillation ([facility]) Assessment & Plan Hemodynamically stable. Has had [...] oral, Q15 Min PRN, Jason Shore Jr., CAR FERRY MASTER ??? dextrose 50% (concentrated solution) CONCENTRATED solution 25 g, 25 g, intravenous, Q15 Min PRN, Jason Shore Jr., CAR FERRY MASTER ??? diphenhydrAMINE (BENADRYL) tab/cap 25 mg, 25 mg, oral, TID PRN, Rachna Burt MD ??? docusate sodium (COLACE) capsule 100 mg, 100 mg, oral, BID, Rachna Burt MD, 100 mg at 10/25/172157 ??? glucagon injection 1 mg, 1 mg, intramuscular, Q30 Min PRN, Jason Shore Jr., CAR FERRY MASTER ??? insulin lispro (HumaLOG) injection 1-2 Units, 1-2 Units, subcutaneous, Nightly, Jason Lilly, CAR FERRY MASTER ??? insulin lispro (HumaLOG) injection 1-3 Units, 1-3 Units, subcutaneous, TID with meals, Jason Shore Jr., CAR FERRY MASTER ??? ipratropium-albuterol (DUO-NEB) 0.5-2.5 mg/3 mL nebulizer [...] prior tobacco abuse. 4. Dysphagia: S/p PEG. 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 Aspiration precautions 5. Dm2: A1c [...] Soft Diet effective now Question Answer Comment ([facility]) Diet type Modified Consistency Modified Consistency: Mechanical [...] RD at 10/25/2017 2:46 PM CDT * Kairna Kearns RRT - 10/25/2017 11:53 AM CDT [...] oral, Q15 Min PRN, Jason Shore Jr., CAR FERRY MASTER ??? dextrose 50% (concentrated solution) CONCENTRATED solution 25 g, 25 g, intravenous, Q15 Min PRN, Jason Shore Jr., CAR FERRY MASTER ??? diphenhydrAMINE (BENADRYL) tab/cap 25 mg, 25 mg, oral, TID PRN, Rachna Burt MD ??? docusate sodium (COLACE) capsule 100 mg, 100 mg, oral, BID, Rachna Burt MD, 100 mg at 10/25/17 0750 ??? glucagon injection 1 mg, 1 mg, intramuscular, Q30 Min PRN, Jason Shore Jr., CAR FERRY MASTER ??? insulin lispro (HumaLOG) injection 1-2 Units, 1-2 Units, subcutaneous, Nightly, Jason Lilly, CAR FERRY MASTER ??? insulin lispro (HumaLOG) injection 1-3 Units, 1-3 Units, subcutaneous, TID with meals, Jaosn Shore Jr., CAR FERRY MASTER ??? ipratropium-albuterol (DUO-NEB) 0.5-2.5 mg/3 mL nebulizer [...] for pneumonia, empyema prior to transfer to [facility]. Currently on Bactrim for stenotrophomonas pneumonia. Chest x-ray improved Diskitis Assessment & Plan Completed debridement, prolonged antibiotic therapy for an L1 diskitis. Has had some back pain. Hypercapnic respiratory failure (CMS/HCC) Assessment & Plan Successfully decannulated. FiO2 to maintain a saturation of 90%. Continue BiPAP at night. Eventual evaluation for home noninvasive positive pressure ventilation at night COPD (chronic obstructive pulmonary disease) ([facility]) Assessment & Plan Pulmonary function testing when stable. Continue inhaled bronchodilator therapy. Former smoker Assessment & Plan May meet criteria for lung cancer screen Chronic atrial fibrillation ([facility]) Assessment & Plan Hemodynamically stable. Has had [...] long-term oral anticoagulation;hypertension, diabetes who presented to [facility] with respiratory failure. He orginally presented to an outside hospital on 07/29/17 for an L1 debridement associate d with an abscess. His subsequent medical course was complicated my MRSA empyema requiring chest tube placement with prolonged antibiotics, trachestomy for delayed weaning, PEG placement and mucus plugging. He has been doing very well at [facility]. He is participating in limited [...] oral, Q15 Min PRN, Jason Shore Jr., CAR FERRY MASTER ??? dextrose 50% (concentrated solution) CONCENTRATED solution 25 g, 25 g, intravenous, Q15 Min PRN, Jason Shore Jr., CAR FERRY MASTER ??? diphenhydrAMINE (BENADRYL) tab/cap 25 mg, 25 mg, oral, TID PRN, Rachna Burt MD ??? docusate sodium (COLACE) capsule 100 mg, 100 mg, oral, BID, Rachna Burt MD, 100 mg at 10/25/17 0750 ??? glucagon injection 1 mg, 1 mg, intramuscular, Q30 Min PRN, Jason Shore Jr., CAR FERRY MASTER ??? insulin lispro (HumaLOG) injection 1-2 Units, 1-2 Units, subcutaneous, Nightly, Jason Lilly, CAR FERRY MASTER ??? insulin lispro (HumaLOG) injection 1-3 Units, 1-3 Units, subcutaneous, TID with meals, Jason Shore Jr., CAR FERRY MASTER ??? ipratropium-albuterol (DUO-NEB) 0.5-2.5 mg/3 mL nebulizer [...] and Family Goals: To return home at [facility] Pre hospital Living environment: Home Setting: Split level home Prehospital Lives With: Spouse;Adult children Current Systems Summary: Height: Height: 180.3 cm (5' 11 ) Weight: Weight: 94.3 kg (208 lb) Diet: Diet: Regular, [place] Thickened liquids Bladder: Bladder assessment: Incontinent,Number of [...] List/ Comorbidities: Active Problems: Chronic atrial fibrillation ([facility]) Former smoker COPD (chronic obstructive pulmonary disease) ([facility]) Hypercapnic respiratory failure ([facility]) Diskitis Pneumonia Rehabilitation Precautions/Restrictions: Falls;MRSA colonization;Isolation Medical [...] prior tobacco abuse. 4. Dysphagia: S/p PEG. 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 Aspiration precautions 5. Dm2: A1c [...] Frequency Start Date End Date Collaborate with machine brusher -- 10/24/17 -- Problem: Lack of Knowledge: [...] Date: 10/25/17 Goal Start Date End Date [facility] 1 10/25/17 -- Goal Details: Pt to dress modified IND Goal Start Date End Date [facility] 2 10/25/17 -- Goal Details: Pt to groom modified IND Goal Start Date End Date [facility] 3 10/25/17 -- Goal Details: Pt to bathe with transfer modified IND Goal Start Date End Date [facility] 4 10/25/17 -- Goal Details: Pt to toilet with transfer modified IND Goal Start Date End Date [facility] 5 10/25/17 -- Goal Details: Pt to [...] Expected intensity and frequency of Speech Therapy (MOBILE LOUNGE DRIVER): 1 hour per day per day over [...] benefit from the intensive inpatientprogram offered at [facility] . documented in this encounter Consult Notes [...] [facility] on Bactrim for [...] oral, Q15 Min PRN, Jason Shore Jr., CAR FERRY MASTER ??? dextrose 50% (concentrated solution) CONCENTRATED solution 25 g, 25 g, intravenous, Q15 Min PRN, Jason Shore Jr., CAR FERRY MASTER ??? diphenhydrAMINE (BENADRYL) tab/cap 25 mg, 25 mg, oral, TID PRN, Rachna Burt MD ??? docusate sodium (COLACE) capsule 100 mg, 100 mg, oral, BID, Rachna Burt MD, 100 mg at 10/24/172233 ??? glucagon injection 1 mg, 1 mg, intramuscular, Q30 Min PRN, Jason Shore Jr., CAR FERRY MASTER ??? insulin lispro (HumaLOG) injection 1-2 Units, 1-2 Units, subcutaneous, Nightly, Jason Lilly, CAR FERRY MASTER ??? insulin lispro (HumaLOG) injection 1-3 Units, 1-3 Units, subcutaneous, TID with meals, Jason Shore Jr., CAR FERRY MASTER ??? metFORMIN (GLUCOPHAGE) tablet 500 mg, 500 [...] prior tobacco abuse. 4. Dysphagia: S/p PEG. 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 Aspiration precautions 5. Dm2: A1c [...] The original images are available in the Sterile Supervisor. documented in this encounter Miscellaneous Notes * Plan of Care - Brenden Pathak LCSW - 2017 2:31 PM CDT Pt not accepted to [facility]. He and his did accept going to [facility] today and pt discharged there to a fdc/ skilled/ medicare bed. [facility] per [place] will arrange for ptlow air loss mattress. Pt transported via [facility] van service. * Plan of Care - [...] CDT Pt likely to be accepted at [facility] for 11/10 and was accepted at [facility]. Pt and prefer [facility] but the snf will have a [...] PM CDT I meet with and pt. [facility] [place] has no openings. Referrals sent to [facility] and [facility] per their request. We talked about transporttation [...] Date of : 1950 Sex: Male Room/Bed: [place] [address]/[address] Admitting Diagnosis: DEBILITY Admit Date/Time: 10/24/2017 [...] 10/25/2017 ??? COPD (chronic obstructive pulmonary disease) ([facility]) 10/25/2017 ??? Hypercapnic respiratory failure ([facility]) 10/25/2017 ??? Diskitis 10/25/2017 ??? Pneumonia 10/25/2017 ??? Chronic atrial fibrillation ([facility]) 02/22/2017 Conference Led by: (Physician Name, Credentials and Specialty): Rachna Burt MD Team Members Present: Physician Reshipping Clerk: Rachna Burt MD Nursing Reshipping Clerk: Neena Jackson software configuration specialist Reshipping Clerk: (Jose Alberto SANHCEZ) PT Reshipping Clerk: Kateryna Lunsford PT OT Reshipping Clerk: Josefa Hardwick OT MOBILE LOUNGE DRIVER Reshipping Clerk: (Christina Chakraborty MOBILE LOUNGE DRIVER) Patient/Family Present: Patient Present: No Patient's Family [...] Frequency Start Date End Date Collaborate with machine brusher -- 10/24/17 -- Problem: Lack of Knowledge: [...] 10/25/17 -- Goal Start Date End Date [facility] - Patient performs or directs assisted coughing [...] Date: 10/25/17 Goal Start Date End Date [facility] - Pain is manageable through therapies 10/25/17 -- Goal Start Date End Date [facility] - Patient will verbalize an acceptable level of pain 10/25/17 -- Problem: OT Misc Start Date: 10/25/17 Goal Start Date End Date [facility] 1 10/25/17 -- Goal Details: Pt to dress modified IND Goal Start Date End Date [facility] 2 10/25/17 -- Goal Details: Pt to groom modified IND Goal Start Date End Date [facility] 3 10/25/17 -- Goal Details: Pt to bathe with transfer modified IND Goal Start Date End Date [facility] 4 10/25/17 -- Goal Details: Pt to toilet with transfer modified IND Goal Start Date End Date [facility] 5 10/25/17 -- Goal Details: Pt to complete UE HEP with IND to promote IND with self care and functional transfers Problem: Cognitive: Start Date: 10/25/17 Goal Start Date End Date [facility] 1 10/25/17 -- Goal Details: Patient will execute multiple elements of a task with supervision Goal Start Date End Date [facility] 2 10/25/17 -- Goal Details: Patient will increase problem solving to complete tasks at 90% or with supervision Problem: Physical Regulation: Start Date: 10/25/17 Goal Start Date End Date [facility] 3 10/25/17 -- Goal Details: Patient will increase general strength/coordination through various exercises with supervision until disch Problem: Respiratory: Start Date: 10/25/17 Goal Start Date End Date [facility] 4 10/25/17 -- Goal Details: Patient will maintain/increase SPO2 by 1% in at least one session prior to disch Goal Start Date End Date [facility] - [facility] 5 10/25/17 -- Goal Details: Patient will increase pulmonary function through various exercises with supervision until disch Problem: PT [facility] Start Date: 10/25/17 Goal Start Date End Date [facility] 1 10/25/17 -- Goal Details: Pt will roll SARAH and supine<-->sit EOB with supervision and bedrails as needed.Pt will sit<-->stand with minimum assist and appropriate assistive device. Pt will transfer bed<-->wheelchair/chair with minimum assist and appropriate assistive device. Goal Start Date End Date [facility] 2 10/25/17 -- Goal Details: Pt will ambulate 150' w/ minimum assist and appropriate assistive device. Pt will ambulate up/down 4 stairs with mod assist and SARAH rails. Goal Start Date End Date [facility] 4 10/25/17 -- Goal Details: Pt will complete SARAH LE HEP x15 reps with supervision. Goal Start Date End Date [facility] 5 10/25/17 -- Goal Details: Pt and/or [...] notified. OT Cognition: WNL OT Communication: WNL MOBILE LOUNGE DRIVER Cognition: WFL MOBILE LOUNGE DRIVER Communication: WFL MOBILE LOUNGE DRIVER Swallowing: WFL: Regular consistency with thin liquids, tolerating diet well Caregiver at Discharge: SNF staff Living Setting at Discharge: Additional comments:: (see progress notes) Patient expects to be discharged to:: Private residence Steps: , , Anticipated Discharge Date: 11/10/17 Potential Custodial Needs/Follow-up: Potential Data Security Administrator Needs: care home, Anticipated Supervision:24 hour Anticipated Equipment Needs: Wheelchair,tub [...] OT Treatment Row Name 11/07/17 1030 11/06/17 0000 Session Type Treatment Treatment OT Received On [...] shoe -- LE Dressing: Equipment Utilized Dressing stick;Bottle Dealer;Sock aid -- Toileting: Assistance with -- total [...] and fatigue (pt wears gloves for added partner management consultant/traction), sit<-->stand x2 reps in // bars with [...] Functional Status PT Functional Mobility Worked on sit-sap business objects consultant parallel bars, MAx x 2 people but [...] this type exist for this encounter. , MOBILE LOUNGE DRIVER Eval and Treat Last 72 Hours MOBILE LOUNGE DRIVER Evaluation No documentation. MOBILE LOUNGE DRIVER Treatment No documentation. Clinical Swallow Study No documentation. MOBILE LOUNGE DRIVER Notes (Notes from 11/06/17 through 11/08/17) No [...] 11/07/17 0700 - 11/08/17 0659 Total Total 8107-5267 [phone] Total Intake (ml) 1260 960 -- -- [...] Wound Status Healing Healing Healing Site Assessment [place] Mandy-wound Assessment Blanchable erythema;Fragile Blanchable erythema;Excoriated;Fragile Drainage [...] Wound Status Healing Healing Healing Site Assessment Intact;[place] Mandy-wound Assessment Color normal for ethnicity Dressing Status Changed Dressing Hydrocolloid;Gauze Wound 11/04/17 Skin tear Arm Right Date First Assessed 11/04/17 Site: Arm Time First Assessed 1641 Days: 3 Location Orientation: Right Wound Type: Skin tear Present on Hospital Admission: No Assessments 11/08/17 0900 11/07/17 2147 11/07/17 1015 Wound Status Healing Healing Site Assessment Clean;Dry;Intact Clean;Dry;Intact;[place] Drainage Amount Scant Drainage Description Serosanguineous Dressing [...] Recent Administrations acetaminophen (TYLENOL) tablet 650 mg [[id number]] Ordering Provider: Rachna Burt MD Status: Dispensed Ordered On: 10/24/172033 Start: 10/24/172004 Dose (Remaining/Total): 650 mg (--/--) Route: oral Frequency: Every 4 hours PRN Rate/Duration: -- / -- Timestamps Action Dose Route Other Information 06/03/18 1535 Given 650 mg oral Performed by: Eunice Cruz RN albuterol (PROVENTIL,VENTOLIN) 2.5 mg/0.5 mL nebulizer solution 5 mg [[id number]] Ordering Provider: Rachna Burt MD Status: Dispensed Ordered On: 10/24/172033 Start: 10/24/172004 Dose (Remaining/Total): 5 mg (--/--) Route: nebulization Frequency: Every 6 hours PRN Rate/Duration: -- / -- (No admins recorded for this medication) amiodarone (PACERONE) tablet 200 mg [[id number]] Ordering Provider: Rachna Burt MD Status: Dispensed Ordered On: 10/24/172033 Start: 10/24/172114 Dose (Remaining/Total): 200 mg (--/--) Route: oral Frequency: 2 times daily Rate/Duration: -- / -- Timestamps Action Dose Route Other Information 11/08/17852 Given 200 mg oral Performed by: Neena Jackson RN apixaban (ELIQUIS) tablet 5 mg [[id number]] Ordering Provider: Rachna Burt MD Status: Dispensed [...] RN aspirin enteric coated tablet 81 mg [[id number]] Ordering Provider: Rachna Burt MD Status: Dispensed Ordered On: 10/24/172033 Start: 10/25/17899 Dose (Remaining/Total): 81 mg (--/--) Route: oral Frequency: Daily Rate/Duration: -- / -- Admin Instructions: Do not crush or chew Timestamps Action Dose Route Other Information 11/08/17852 Given 81 mg oral Performed by: Neena Jackson RN atorvastatin (LIPITOR) tablet 20 mg [[id number]] Ordering Provider: Rachna Burt MD Status: Dispensed Ordered On: 10/24/172033 Start: 10/25/17899 Dose (Remaining/Total): 20 mg (--/--) Route: oral Frequency: Daily Rate/Duration: -- / -- Timestamps Action Dose Route Other Information 11/08/1753 Given 20 mg oral Performed by: Neena Jackson RN chlorhexidine (PERIDEX) 0.12 % solution 5 mL [[id number]] Ordering Provider: Rachna Burt MD Status: Dispensed Ordered On: 10/24/172033 Start: 10/24/172114 Dose (Remaining/Total): 5 mL (--/--) Route: mouth/throat Frequency: 2 times daily Rate/Duration: -- / -- Timestamps Action Dose Route Other Information 11/08/1754 Given 5 mL mouth/throat Performed by: Neena Jackson RN metoprolol (LOPRESSOR) tablet 12.5 mg [[id number]] Ordering Provider: Rachna Burt MD Status: Dispensed Ordered On: 10/24/172033 Start: 10/24/172114 Dose (Remaining/Total): 12.5 mg (--/--) Route: oral Frequency: 2 times daily Rate/Duration: -- / -- Timestamps Action Dose Route Other Information 11/08/17852 Given 12.5 mg oral Performed by: Neena Jackson RN ondansetron (ZOFRAN) tablet 4 mg [[id number]] Ordering Provider: Rachna Burt MD Status: Dispensed Ordered On: 10/24/172033 Start: 10/24/172011 Dose (Remaining/Total): 4 mg (--/--) Route: oral Frequency: Every 4 hours PRN Rate/Duration: -- / -- Timestamps Action Dose Route Other Information 11/06/17 1645 Given 4 mg oral Performed by: Mila Gonzalez RN oxyCODONE (ROXICODONE) tablet 5 mg [[id number]] Ordering Provider: Rachna Burt MD Status: Dispensed Ordered On: 10/24/172033 Start: 10/24/172011 Dose (Remaining/Total): 5 mg (--/--) Route: oral Frequency: Every 4 hours PRN Rate/Duration: -- / -- Timestamps Action Dose Route Other Information 11/01/17 1313 Given 5 mg oral Performed by: Agustin Das RN oxyCODONE (ROXICODONE) tablet 10 mg [[id number]] Ordering Provider: Rachna Burt MD Status: Dispensed Ordered On: 10/24/172033 Start: 10/24/172012 Dose (Remaining/Total): 10 mg (--/--) Route: oral Frequency: Every 4 hours PRN Rate/Duration: -- / -- Admin Instructions: Do not crush or chew Timestamps Action Dose Route Other Information 11/08/17 0856 Given 10 mg oral Performed by: Neena Jackson RN pantoprazole DR (PROTONIX) extended release tablet 40 mg [[id number]] Ordering Provider: Rachna Burt MD Status: Dispensed Ordered On: 10/24/172033 Start: 10/25/17 09 Dose (Remaining/Total): 40 mg (--/--) Route: oral Frequency: Daily Rate/Duration: -- / -- Admin Instructions: Do not crush or chew Timestamps Action Dose Route Other Information 11/08/17 0853 Given 40 mg oral Performed by: Neena Jackson RN senna (SENOKOT) tablet 1 tablet [[id number]] Ordering Provider: Rachna Burt MD Status: Dispensed Ordered On: 10/24/172033 Start: 10/25/17 09 Dose (Remaining/Total): 1 tablet (--/--) Route: oral Frequency: Daily Rate/Duration: -- / -- Timestamps Action Dose Route Other Information 11/08/17 0853 Given 1 tablet oral Performed by: Neena Jackson RN tamsulosin (FLOMAX) extended release capsule 0.4 mg [[id number]] Ordering Provider: Rachna Burt MD Status: Dispensed Ordered On: 10/24/172033 Start: 10/24/172114 Dose (Remaining/Total): 0.4 mg (--/--) Route: oral Frequency: Nightly Rate/Duration: -- / -- Admin Instructions: Do not crush or chew Timestamps Action Dose Route Other Information 11/07/172146 Given 0.4 mg oral Performed by: Amanda Burnette RN zolpidem (AMBIEN) tablet 5 mg [[id number]] Ordering Provider: Rachna Burt MD Status: Dispensed Ordered On: 10/24/172033 Start: 10/24/172015 Dose (Remaining/Total): 5 mg (--/--) Route: oral Frequency: Nightly PRN Rate/Duration: -- / -- Timestamps Action Dose Route Other Information 11/07/172146 Given 5 mg oral Performed by: Amanda Burnette RN budesonide-formoterol (SYMBICORT) 80-4.5 mcg/actuation inhaler 1 puff [[id number]] Ordering Provider: Rachna Burt MD Status: Verified Ordered On: 10/24/172099 Start: 10/24/172144 Dose (Remaining/Total): 1 puff (--/--) Route: inhalation Frequency: 2 times daily (respiratory physician) Rate/Duration: -- / -- Admin Instructions: Rinse mouth with water after use to reduce aftertaste and incidence of candidiasis. Do not swallow. Timestamps Action Dose Route Other Information 11/08/17707 Given 1 puff inhalation Performed by: Germaine Fountain RRT dextrose (GLUTOSE) 40 % gel 15 g [[id number]] Ordering Provider: Jason Shore Jr., NP Status: Verified Ordered On: 10/24/172107 Start: 10/24/172057 Dose (Remaining/Total): 15 g (--/--) Route: oral Frequency: Every 15 min PRN Rate/Duration: -- / -- Admin Instructions: If patient is alert and able to eat/drink, give 15 gram glucose or one juice (4fluid ounces) NOT ORANGE JUICE TRIMMER HAND STATES GLUTOSE-15 CONTAINS GLUCOSE 40% W/W (50% W/V) (No admins recorded for this medication) dextrose 50% (concentrated solution) CONCENTRATED solution 25 g [[id number]] Ordering Provider: Jason Shore Jr., CAR FERRY MASTER Status: Verified Ordered On: 10/24/172107 Start: 10/24/172057 Dose (Remaining/Total): 25 g (--/--) Route: intravenous Frequency: Every 15 min PRN Rate/Duration: -- / -- Admin Instructions: If patient is NPO or unresponsive, give dextrose 50% IV Push over 2 minutes. (No admins recorded for this medication) glucagon injection 1 mg [[id number]] Ordering Provider: Jason Shore Jr. CAR FERRY MASTER Status: Verified Ordered On: 10/24/172107 Start: 10/24/172057 Dose (Remaining/Total): 1 mg (--/--) Route: intramuscular Frequency: Every 30 min PRN Rate/Duration: -- / -- Admin Instructions: If patient has no IV access and not alert, given Glucagon IM then follow with either oral glucose or IV dextrose treatment. (No admins recorded for this medication) miconazole 2 % powder [[id number]] Ordering Provider: Rachna Burt MD Status: Dispensed Ordered On: 10/25/17617 Start: 10/25/17899 Dose (Remaining/Total): -- (--/--) Route: topical Frequency: 2 times daily Rate/Duration: -- / -- Question Answer Comment Apply to affected area:: other groin Timestamps Action Dose / Rate / Duration Route Other Information 11/08/17 0857 Given -- topical Performed by: Neena Jackson, RN zinc sulfate (ZINCATE) capsule 220 mg [[id number]] Ordering Provider: Rachna Burt MD Status: Dispensed Ordered On: 10/25/171034 Start: 10/25/171114 Dose (Remaining/Total): 220 mg (--/--) Route: oral Frequency: Daily Rate/Duration: -- / -- Timestamps Action Dose Route Other Information 11/08/17 0853 Given 220 mg oral Performed by: Neena Jackson, RN ascorbic acid (VITAMIN C) tablet/chewable tablet 500 mg [[id number]] Ordering Provider: Rachna Burt MD Status: Dispensed Ordered On: 10/25/171034 Start: 10/25/17 1115 Dose (Remaining/Total): 500 mg (--/--) Route: oral Frequency: 2 times daily Rate/Duration: -- / -- Timestamps Action Dose Route Other Information 11/08/17 0853 Given 500 mg oral Performed by: Neena Jackson RN collagenase 250 unit/gram ointment [[id number]] Ordering Provider: Rachna Burt MD Status: Dispensed [...] RN ergocalciferol (VITAMIN D) capsule 50,000 Units [[id number]] Ordering Provider: Adam Pastro MD Status: Dispensed Ordered On: 10/26/17 0657 Start: 10/26/17 0900 Dose (Remaining/Total): 50,000 Units (--/--) Route: oral Frequency: Weekly Rate/Duration: -- / -- Timestamps Action Dose Route Other Information 11/02/17 0719 Given 50,000 Units oral Performed by: Neetu Schmitt RN Comments: given before therapy bumetanide (BUMEX) tablet 0.5 mg [[id number]] Ordering Provider: Александр Espino Jr., MD Status: Dispensed Ordered On: 10/29/17 0730 Start: 10/29/17 0900 Dose (Remaining/Total): 0.5 mg (--/--) Route: oral Frequency: Daily Rate/Duration: -- / -- Timestamps Action Dose Route Other Information 11/08/17 0853 Given 0.5 mg oral Performed by: Neena Jackson RN docusate sodium (COLACE) capsule 100 mg [[id number]] Ordering Provider: Jason Shore Jr., NP Status: Dispensed Ordered On: 10/29/17 0738 Start: 10/29/17899 Dose (Remaining/Total): 100 mg (--/--) Route: oral Frequency: 2 times daily Rate/Duration: -- / -- Timestamps Action Dose Route Other Information 11/08/17852 Given 100 mg oral Performed by: Neena Jackson RN polyethylene glycol (MIRALAX) packet 17 g [[id number]] Ordering Provider: Jason Shore Jr., NP Status: Dispensed Ordered On: 10/29/17737 Start: 10/29/17735 Dose (Remaining/Total): 17 g (--/--) Route: oral Frequency: 2 times daily PRN Rate/Duration: -- / -- Timestamps Action Dose Route Other Information 11/05/172121 Given 17 g oral Performed by: Heather Salcedo RN bisacodyl EC (DULCOLAX EC) tablet 5 mg [[id number]] Ordering Provider: Jason Shore Jr., NP Status: Dispensed Ordered On: 10/29/17737 Start: 10/29/17736 Dose (Remaining/Total): 5 mg (--/--) Route: oral Frequency: 2 times daily PRN Rate/Duration: -- / -- Admin Instructions: Do not crush or chew Timestamps Action Dose Route Other Information 11/07/17 1012 Given 5 mg oral Performed by: Eunice Cruz RN bisacodyl (DULCOLAX) suppository 10 mg [[id number]] Ordering Provider: Jason Shore Jr., NP Status: Dispensed Ordered On: 10/29/17737 Start: 10/29/17736 Dose (Remaining/Total): 10 mg (--/--) Route: rectal Frequency: Daily PRN Rate/Duration: -- / -- Timestamps Action Dose Route Other Information 11/06/17 182 Given 10 mg rectal Performed by: Eunice Cruz RN lidocaine (LIDODERM) 5 % patch 1 patch [[id number]] Ordering Provider: Jason Shore Jr., NP Status: [...] 0.5-2.5 mg/3 mL nebulizer solution 3 mL [[id number]] Ordering Provider: Rachna Burt MD Status: Verified Ordered On: 10/29/17 0956 Start: 10/29/17 1000 Dose (Remaining/Total): 3 mL (--/--) Route: nebulization Frequency: Every 4 hours PRN (respiratory physician) Rate/Duration: -- / -- (No admins recorded for this medication) diphenhydrAMINE (BENADRYL) tab/cap 25 mg [[id number]] Ordering Provider: Александр Espino Jr., MD Status: Dispensed Ordered On: 11/04/17827 Start: 11/04/17827 Dose (Remaining/Total): 25 mg (--/--) Route: oral Frequency: 4 times daily PRN Rate/Duration: -- / -- Timestamps Action Dose Route Other Information 11/07/172147 Given 25 mg oral Performed by: Amanda Burnette RN bacitracin 500 unit/gram ointment packet 1 application [[id number]] Ordering Provider: Nas De Oliveira DPM Status: [...] Jackson RN camphor-menthol (SARNA) 0.5-0.5 % lotion [[id number]] Ordering Provider: Rachna Burt MD Status: Dispensed Ordered On: 11/07/17 0900 Start: 11/07/17 0859 Dose (Remaining/Total): -- (--/--) Route: topical Frequency: As needed Rate/Duration: -- / -- Question Answer Comment Apply to affected area:: other dry skin Timestamps Action Dose / Rate / Duration Route Other Information 11/07/17 215 Given -- topical Performed by: Amanda Burnette RN baclofen (LIORESAL) tablet 10 mg [[id number]] Ordering Provider: Rachna Burt MD Status: Dispensed [...] Wound Status Healing Healing Healing Site Assessment [place] Mandy-wound Assessment Blanchable erythema;Fragile Blanchable erythema;Excoriated;Fragile Drainage [...] Wound Status Healing Healing Healing Site Assessment Intact;[place] Mnady-wound Assessment Color normal for ethnicity Dressing Status Changed Dressing Hydrocolloid;Gauze Wound 11/04/17 Skin tear Arm Right Date First Assessed 11/04/17 Site: Arm Time First Assessed 1641 Days: 3 Location Orientation: Right Wound Type: Skin tear Present on Hospital Admission: No Assessments 11/08/17 0911/07/17214611/07/17 1015 Wound Status Healing Healing Site Assessment Clean;Dry;Intact Clean;Dry;Intact;[place] Drainage Amount Scant Drainage Description Serosanguineous Dressing [...] snf units in the area for review. [facility] will assess pt closer to discharge date. [...] assess. * ECIN Note - Brenden Pathak, CAR RIDER - 11/04/2017 7:16 AM CDT Patient Information: [...] PROM hip abduction (right LE only), attempted [id number] stretch to decreased low back spasms and [...] and extra time + gloves to improve partner management consultant. PM: transfers WC-->standing frame with total assist [...] x1-2 via slide board to right side, sit<-->sap business objects consultant // bars x4 reps with max assist [...] this type exist for this encounter. , MOBILE LOUNGE DRIVER Eval and Treat Last 72 Hours MOBILE LOUNGE DRIVER Evaluation No documentation. MOBILE LOUNGE DRIVER Treatment No documentation. Clinical Swallow Study No documentation. MOBILE LOUNGE DRIVER Notes (Notes from 11/02/17 through 11/04/17) No [...] 11/04/17 07 - 11/05/17 0659 Total Total 2084-6161 3372-9766 2032-0274 Total 0203-1725 7757-2202 6141-9122 Total Intake (ml) 360 710 780 0 [...] Healing Healing Healing Healing Site Assessment Red [place];Red;Excoriated [place];Red;Excoriated [place];Excoriated Mandy-wound Assessment Blanchable erythema Blanchable erythema Blanchable [...] Status Healing Healing Healing Site Assessment AMARI [place];Yellow AMARI AMARI Margins Defined edges Mandy-wound Assessment [...] Status Healing Healing Site Assessment Other (Comment) [place];Intact AMARI AMARI Drainage Amount None Interventions Cleansed Cleansed Dressing Status New Changed Clean/Dry/Intact Clean/Dry/Intact;Other (Comment) Dressing Wound gel;Non adherent Dry dressing Dry dressing Wound 10/29/17 Abrasion(s) Groin Left Date First Assessed 10/29/17 Site: Groin Time First Assessed 2100 Days: 5 Location Orientation: Left Wound Type: Abrasion(s) Assessments 11/03/17212911/03/1759911/02/17219911/02/17 0720 Wound Status Healing Healing Healing Healing Site Assessment [place];Excoriated [place];Excoriated [place];Excoriated Drainage Amount None None Interventions Cleansed Dressing [...] Recent Administrations acetaminophen (TYLENOL) tablet 650 mg [[id number]] Ordering Provider: Rachna Burt MD Status: Dispensed Ordered On: 10/24/172033 Start: 10/24/172004 Dose (Remaining/Total): 650 mg (--/--) Route: oral Frequency: Every 4 hours PRN Rate/Duration: -- / -- Timestamps Action Dose Route Other Information 11/02/171751 Given 650 mg oral Performed by: Neetu Schmitt RN albuterol (PROVENTIL,VENTOLIN) 2.5 mg/0.5 mL nebulizer solution 5 mg [[id number]] Ordering Provider: Rachna Burt MD Status: Dispensed Ordered On: 10/24/172033 Start: 10/24/172004 Dose (Remaining/Total): 5 mg (--/--) Route: nebulization Frequency: Every 6 hours PRN Rate/Duration: -- / -- (No admins recorded for this medication) amiodarone (PACERONE) tablet 200 mg [[id number]] Ordering Provider: Rachna Burt MD Status: Dispensed Ordered On: 10/24/172033 Start: 10/24/172114 Dose (Remaining/Total): 200 mg (--/--) Route: oral Frequency: 2 times daily Rate/Duration: -- / -- Timestamps Action Dose Route Other Information 11/03/172128 Given 200 mg oral Performed by: Amanda Burnette RN apixaban (ELIQUIS) tablet 5 mg [[id number]] Ordering Provider: Rachna Burt MD Status: Dispensed [...] RN aspirin enteric coated tablet 81 mg [[id number]] Ordering Provider: Rachna Burt MD Status: Dispensed Ordered On: 10/24/172033 Start: 10/25/17899 Dose (Remaining/Total): 81 mg (--/--) Route: oral Frequency: Daily Rate/Duration: -- / -- Admin Instructions: Do not crush or chew Timestamps Action Dose Route Other Information 11/03/17802 Given 81 mg oral Performed by: Neena Jackson RN atorvastatin (LIPITOR) tablet 20 mg [[id number]] Ordering Provider: Rachna Burt MD Status: Dispensed Ordered On: 10/24/172033 Start: 10/25/17899 Dose (Remaining/Total): 20 mg (--/--) Route: oral Frequency: Daily Rate/Duration: -- / -- Timestamps Action Dose Route Other Information 11/03/17800 Given 20 mg oral Performed by: Neena Jackson RN chlorhexidine (PERIDEX) 0.12 % solution 5 mL [[id number]] Ordering Provider: Rachna Burt MD Status: Dispensed Ordered On: 10/24/172033 Start: 10/24/172114 Dose (Remaining/Total): 5 mL (--/--) Route: mouth/throat Frequency: 2 times daily Rate/Duration: -- / -- Timestamps Action Dose Route Other Information 11/03/172130 Given 5 mL mouth/throat Performed by: Amanda Burnette RN diphenhydrAMINE (BENADRYL) tab/cap 25 mg [[id number]] Ordering Provider: Rachna Burt MD Status: Dispensed Ordered On: 10/24/172033 Start: 10/24/172008 Dose (Remaining/Total): 25 mg (--/--) Route: oral Frequency: 3 times daily PRN Rate/Duration: -- / -- Timestamps Action Dose Route Other Information 11/03/172129 Given 25 mg oral Performed by: Amanda Burnette RN metoprolol (LOPRESSOR) tablet 12.5 mg [[id number]] Ordering Provider: Rachna Burt MD Status: Dispensed Ordered On: 10/24/172033 Start: 10/24/172114 Dose (Remaining/Total): 12.5 mg (--/--) Route: oral Frequency: 2 times daily Rate/Duration: -- / -- Timestamps Action Dose Route Other Information 11/03/172129 Given 12.5 mg oral Performed by: Amanda Burnette RN ondansetron (ZOFRAN) tablet 4 mg [[id number]] Ordering Provider: Rachna Burt MD Status: Dispensed Ordered On: 10/24/172033 Start: 10/24/172011 Dose (Remaining/Total): 4 mg (--/--) Route: oral Frequency: Every 4 hours PRN Rate/Duration: -- / -- Timestamps Action Dose Route Other Information 11/03/17 1010 Given 4 mg oral Performed by: Neena Jackson RN oxyCODONE (ROXICODONE) tablet 5 mg [[id number]] Ordering Provider: Rachna Burt MD Status: Dispensed Ordered On: 10/24/172033 Start: 10/24/172011 Dose (Remaining/Total): 5 mg (--/--) Route: oral Frequency: Every 4 hours PRN Rate/Duration: -- / -- Timestamps Action Dose Route Other Information 11/01/17 1313 Given 5 mg oral Performed by: Agustin Das RN oxyCODONE (ROXICODONE) tablet 10 mg [[id number]] Ordering Provider: Rachna Burt MD Status: Dispensed Ordered On: 10/24/172033 Start: 10/24/172012 Dose (Remaining/Total): 10 mg (--/--) Route: oral Frequency: Every 4 hours PRN Rate/Duration: -- / -- Admin Instructions: Do not crush or chew Timestamps Action Dose Route Other Information 11/03/17 1923 Given 10 mg oral Performed by: Neena Jackson RN pantoprazole DR (PROTONIX) extended release tablet 40 mg [[id number]] Ordering Provider: Rachna Burt MD Status: Dispensed Ordered On: 10/24/172033 Start: 10/25/17 0900 Dose (Remaining/Total): 40 mg (--/--) Route: oral Frequency: Daily Rate/Duration: -- / -- Admin Instructions: Do not crush or chew Timestamps Action Dose Route Other Information 11/03/17 08 Given 40 mg oral Performed by: Neena Jackson RN senna (SENOKOT) tablet 1 tablet [[id number]] Ordering Provider: Rachna Burt MD Status: Dispensed Ordered On: 10/24/172033 Start: 10/25/17899 Dose (Remaining/Total): 1 tablet (--/--) Route: oral Frequency: Daily Rate/Duration: -- / -- Timestamps Action Dose Route Other Information 11/03/17801 Given 1 tablet oral Performed by: Neena Jackson RN tamsulosin (FLOMAX) extended release capsule 0.4 mg [[id number]] Ordering Provider: Rachna Burt MD Status: Dispensed Ordered On: 10/24/172033 Start: 10/24/172114 Dose (Remaining/Total): 0.4 mg (--/--) Route: oral Frequency: Nightly Rate/Duration: -- / -- Admin Instructions: Do not crush or chew Timestamps Action Dose Route Other Information 11/03/172129 Given 0.4 mg oral Performed by: Amanda Burnette RN zolpidem (AMBIEN) tablet 5 mg [[id number]] Ordering Provider: Rachna Burt MD Status: Dispensed Ordered On: 10/24/172033 Start: 10/24/172015 Dose (Remaining/Total): 5 mg (--/--) Route: oral Frequency: Nightly PRN Rate/Duration: -- / -- Timestamps Action Dose Route Other Information 11/03/172129 Given 5 mg oral Performed by: Amanda Burnette RN budesonide-formoterol (SYMBICORT) 80-4.5 mcg/actuation inhaler 1 puff [[id number]] Ordering Provider: Rachna Burt MD Status: Verified Ordered On: 10/24/172099 Start: 10/24/172144 Dose (Remaining/Total): 1 puff (--/--) Route: inhalation Frequency: 2 times daily (respiratory physician) Rate/Duration: -- / -- Admin Instructions: Rinse mouth with water after use to reduce aftertaste and incidence of candidiasis. Do not swallow. Timestamps Action Dose Route Other Information 11/03/172146 Given 1 puff inhalation Performed by: Lorena Membreno CRTT dextrose (GLUTOSE) 40 % gel 15 g [[id number]] Ordering Provider: Jason Shore Jr. CAR FERRY MASTER Status: Verified Ordered On: 10/24/172107 Start: 10/24/172057 Dose (Remaining/Total): 15 g (--/--) Route: oral Frequency: Every 15 min PRN Rate/Duration: -- / -- Admin Instructions: If patient is alert and able to eat/drink, give 15 gram glucose or one juice (4fluid ounces) NOT ORANGE JUICE TRIMMER HAND STATES GLUTOSE-15 CONTAINS GLUCOSE 40% W/W (50% W/V) (No admins recorded for this medication) dextrose 50% (concentrated solution) CONCENTRATED solution 25 g [[id number]] Ordering Provider: Jason Shore Jr. CAR FERRY MASTER Status: Verified Ordered On: 10/24/172107 Start: 10/24/172057 Dose (Remaining/Total): 25 g (--/--) Route: intravenous Frequency: Every 15 min PRN Rate/Duration: -- / -- Admin Instructions: If patient is NPO or unresponsive, give dextrose 50% IV Push over 2 minutes. (No admins recorded for this medication) glucagon injection 1 mg [[id number]] Ordering Provider: Jason Shore Jr., BELLA Status: Verified Ordered On: 10/24/172107 Start: 10/24/172057 Dose (Remaining/Total): 1 mg (--/--) Route: intramuscular Frequency: Every 30 min PRN Rate/Duration: -- / -- Admin Instructions: If patient has no IV access and not alert, given Glucagon IM then follow with either oral glucose or IV dextrose treatment. (No admins recorded for this medication) miconazole 2 % powder [[id number]] Ordering Provider: Rachna Burt MD Status: Dispensed Ordered On: 10/25/17617 Start: 10/25/17899 Dose (Remaining/Total): -- (--/--) Route: topical Frequency: 2 times daily Rate/Duration: -- / -- Question Answer Comment Apply to affected area:: other groin Timestamps Action Dose / Rate / Duration Route Other Information 11/03/172130 Given -- topical Performed by: Amanda Burnette RN zinc sulfate (ZINCATE) capsule 220 mg [[id number]] Ordering Provider: Rachna Burt MD Status: Dispensed Ordered On: 10/25/17 1035 Start: 10/25/17 111 Dose (Remaining/Total): 220 mg (--/--) Route: oral Frequency: Daily Rate/Duration: -- / -- Timestamps Action Dose Route Other Information 11/03/17 08 Given 220 mg oral Performed by: Neena Jackson RN ascorbic acid (VITAMIN C) tablet/chewable tablet 500 mg [[id number]] Ordering Provider: Rachna Burt MD Status: Dispensed Ordered On: 10/25/171034 Start: 10/25/171114 Dose (Remaining/Total): 500 mg (--/--) Route: oral Frequency: 2 times daily Rate/Duration: -- / -- Timestamps Action Dose Route Other Information 11/03/172129 Given 500 mg oral Performed by: Amanda Burnette RN collagenase 250 unit/gram ointment [[id number]] Ordering Provider: Rachna Burt MD Status: Dispensed [...] RN ergocalciferol (VITAMIN D) capsule 50,000 Units [[id number]] Ordering Provider: Adam Pastor MD Status: Dispensed Ordered On: 10/26/17 0657 Start: 10/26/17 0900 Dose (Remaining/Total): 50,000 Units (--/--) Route: oral Frequency: Weekly Rate/Duration: -- / -- Timestamps Action Dose Route Other Information 11/02/17 0719 Given 50,000 Units oral Performed by: Neetu Schmitt RN Comments: given before therapy bumetanide (BUMEX) tablet 0.5 mg [[id number]] Ordering Provider: Александр Espino Jr., MD Status: Dispensed Ordered On: 10/29/17729 Start: 10/29/17899 Dose (Remaining/Total): 0.5 mg (--/--) Route: oral Frequency: Daily Rate/Duration: -- / -- Timestamps Action Dose Route Other Information 11/03/17800 Given 0.5 mg oral Performed by: Neena Jackson RN docusate sodium (COLACE) capsule 100 mg [[id number]] Ordering Provider: Jasno Shore Jr., NP Status: Dispensed Ordered On: 10/29/17737 Start: 10/29/17899 Dose (Remaining/Total): 100 mg (--/--) Route: oral Frequency: 2 times daily Rate/Duration: -- / -- Timestamps Action Dose Route Other Information 11/03/172129 Given 100 mg oral Performed by: Amanda Burnette RN polyethylene glycol (MIRALAX) packet 17 g [[id number]] Ordering Provider: Jason Shore Jr., NP Status: Dispensed Ordered On: 10/29/17737 Start: 10/29/17735 Dose (Remaining/Total): 17 g (--/--) Route: oral Frequency: 2 times daily PRN Rate/Duration: -- / -- Timestamps Action Dose Route Other Information 11/03/17804 Given 17 g oral Performed by: Neena Jackson RN bisacodyl EC (DULCOLAX EC) tablet 5 mg [[id number]] Ordering Provider: Jason Shore Jr., NP Status: Dispensed Ordered On: 10/29/17737 Start: 10/29/17736 Dose (Remaining/Total): 5 mg (--/--) Route: oral Frequency: 2 times daily PRN Rate/Duration: -- / -- Admin Instructions: Do not crush or chew Timestamps Action Dose Route Other Information 10/29/17 1329 Given 5 mg oral Performed by: Neena Jackson RN bisacodyl (DULCOLAX) suppository 10 mg [[id number]] Ordering Provider: Jason Shore Jr., NP Status: Dispensed Ordered On: 10/29/17737 Start: 10/29/1737 Dose (Remaining/Total): 10 mg (--/--) Route: rectal Frequency: Daily PRN Rate/Duration: -- / -- Timestamps Action Dose Route Other Information 10/29/172138 Given 10 mg rectal Performed by: Kelsea Burnette RN lidocaine (LIDODERM) 5 % patch 1 patch [[id number]] Ordering Provider: Jason Shore Jr., NP Status: [...] 0.5-2.5 mg/3 mL nebulizer solution 3 mL [[id number]] Ordering Provider: Rachna Burt MD Status: Verified Ordered On: 10/29/1756 Start: 10/29/17 1000 Dose (Remaining/Total): 3 mL (--/--) Route: nebulization Frequency: Every 4 hours PRN (respiratory physician) Rate/Duration: -- / -- (No admins recorded for this medication) baclofen (LIORESAL) tablet 5 mg [[id number]] Ordering Provider: Jason Shore Jr., NP Status: [...] Healing Healing Healing Healing Site Assessment Red [place];Red;Excoriated [place];Red;Excoriated [place];Excoriated Mandy-wound Assessment Blanchable erythema Blanchable erythema Blanchable [...] Status Healing Healing Healing Site Assessment AMARI [place];Yellow AMARI AMARI Margins Defined edges Mandy-wound Assessment [...] Status Healing Healing Site Assessment Other (Comment) [place];Intact AMARI AMARI Drainage Amount None Interventions Cleansed Cleansed Dressing Status New Changed Clean/Dry/Intact Clean/Dry/Intact;Other (Comment) Dressing Wound gel;Non adherent Dry dressing Dry dressing Wound 10/29/17 Abrasion(s) Groin Left Date First Assessed 10/29/17 Site: Groin Time First Assessed 2100 Days: 5 Location Orientation: Left Wound Type: Abrasion(s) Assessments 11/03/17 2130 11/03/17 0600 11/02/17 2200 11/02/17 0720 Wound Status Healing Healing Healing Healing Site Assessment [place];Excoriated [place];Excoriated [place];Excoriated Drainage Amount None None Interventions Cleansed Dressing [...] where. They do want A referral to [facility] but not to [facility] in [place]. They are aware of discharge for 11/10. [...] but report worsening leg spasms and tightness; CAR FERRY MASTER notified and baclofen order changed from PRN [...] Date of : 1950 Sex: Male Room/Bed: [place] [address] Admitting Diagnosis: ACUTE RESPIRATORY FAILURE, UNSP [...] 10/25/2017 ??? COPD (chronic obstructive pulmonary disease) ([facility]) 10/25/2017 ??? Hypercapnic respiratory failure ([facility]) 10/25/2017 ??? Diskitis 10/25/2017 ??? Pneumonia 10/25/2017 ??? Chronic atrial fibrillation ([facility]) 02/22/2017 Conference Led by: (Physician Name, Credentials and Specialty): Rachna Burt MD Team Members Present: Physician Reshipping Clerk: Rachna Burt MD Nursing Reshipping Clerk: Agustin Das RN (Ivana Arechiga RN) Social Work Reshipping Clerk: (Jose Alberto SANCHEZ) PT Reshipping Clerk: Kateryna Lunsford PT OT Reshipping Clerk: Josefa Hardwick OT MOBILE LOUNGE DRIVER Reshipping Clerk: (Christina OLIVARES) Patient/Family Present: Patient Present: No [...] Frequency Start Date End Date Collaborate with machine brusher -- 10/24/17 -- Problem: Lack of Knowledge: [...] Date: 10/25/17 Goal Start Date End Date [facility] - Pain is manageable through therapies 10/25/17 -- Goal Start Date End Date [facility] - Patient will verbalize an acceptable level of pain 10/25/17 -- Problem: OT Misc Start Date: 10/25/17 Goal Start Date End Date [facility] 1 10/25/17 -- Goal Details: Pt to dress modified IND Goal Start Date End Date [facility] 2 10/25/17 -- Goal Details: Pt to groom modified IND Goal Start Date End Date [facility] 3 10/25/17 -- Goal Details: Pt to bathe with transfer modified IND Goal Start Date End Date [facility] 4 10/25/17 -- Goal Details: Pt to toilet with transfer modified IND Goal Start Date End Date [facility] 5 10/25/17 -- Goal Details: Pt to complete UE HEP with IND to promote IND with self care and functional transfers Problem: Cognitive: Start Date: 10/25/17 Goal Start Date End Date [facility] 1 10/25/17 -- Goal Details: Patient will execute multiple elements of a task with supervision Goal Start Date End Date [facility] 2 10/25/17 -- Goal Details: Patient will increase problem solving to complete tasks at 90% or with supervision Problem: Physical Regulation: Start Date: 10/25/17 Goal Start Date End Date [facility] 3 10/25/17 -- Goal Details: Patient will increase general strength/coordination through various exercises with supervision until disch Problem: Respiratory: Start Date: 10/25/17 Goal Start Date End Date [facility] 4 10/25/17 -- Goal Details: Patient will maintain/increase SPO2 by 1% in at least one session prior to disch Goal Start Date End Date [facility] 5 10/25/17 -- Goal Details: Patient will increase pulmonary function through various exercises with supervision until disch Problem: PT [facility] Start Date: 10/25/17 Goal Start Date End Date [facility] 1 10/25/17 -- Goal Details: Pt will roll SARAH and supine<-->sit EOB with supervision and bedrails as needed.Pt will sit<-->stand with minimum assist and appropriate assistive device. Pt will transfer bed<-->wheelchair/chair with minimum assist and appropriate assistive device. Goal Start Date End Date [facility] 2 10/25/17 -- Goal Details: Pt will ambulate 150' w/ minimum assist and appropriate assistive device. Pt will ambulate up/down 4 stairs with mod assist and SARAH rails. Goal Start Date End Date [facility] 3 10/25/17 -- Goal Details: Pt will propel WC 150' with supervision and extra time. Goal Start Date End Date [facility] 4 10/25/17 -- Goal Details: Pt will complete SARAH LE HEP x15 reps with supervision. Goal Start Date End Date [facility] 5 10/25/17 -- Goal Details: Pt and/or [...] hospital gloves on both hands to improve traction/partner management consultant with propulsion. Pt able to stand 4x [...] OT Communication: decreased vocal strength at times. MOBILE LOUNGE DRIVER Cognition: WFL MOBILE LOUNGE DRIVER Communication: WFL MOBILE LOUNGE DRIVER Swallowing: WFL: Regular consistency with thin liquids, tolerating diet well Caregiver at Discharge: group home staff Living Setting at Discharge: Additional comments:: (see progress notes) Patient expects to be discharged to:: Private residence Steps: , , Anticipated Discharge Date: 11/10/17 Potential Data Security Administrator Needs/Follow-up: Potential Custodial Needs: care home, Anticipated Supervision:24 hour Anticipated Equipment Needs: Wheeled [...] day, no complaints or needs. Waiting on [facility] game to come on. * Plan of Care - Arlyn Guevara PTA - 10/28/2017 2:08 PM CDT Problem: PT Misc Goal: LT - [facility] 1 Pt will roll SARAH and supine<-->sit [...] SARAH rails. Outcome: Progressing Goal: LT - [facility] 3 Pt will propel WC 150' with supervision and extra time. Outcome: Progressing Goal: LT - [facility] 4 Pt will complete SARAH LE HEP x15 reps with supervision. Outcome: Progressing Goal: LT - Misc 5 Pt and/or family will verbalize and demonstrate understanding of pt's safety and mobility needs upon discharge. Outcome: Progressing * Plan of Care - Christina Chakraborty MOBILE LOUNGE DRIVER - 10/28/2017 11:04 AM CDT Problem: MOBILE LOUNGE DRIVER Misc Goal: LTG - Misc 1 Patient [...] SLP - 10/27/2017 2:44 PM CDT Problem: MOBILE LOUNGE DRIVER Misc Goal: LTG - Mis 1 Patient will tolerate regular consistency with thin liquids without clinical overt s/s of aspiration. Outcome: Progressing Upgraded to regular consistency with thin liquids today Goal: LT - [facility] 2 Patient will complete 3 sets of [...] up/down 4 stairs with mod assist and ASRAH rails. Outcome: Progressing Goal: LTG - Mis 3 Pt will propel WC 150' with supervision and extra time. Outcome: Progressing Goal: LTG - Mis 4 Pt will complete SARAH LE HEP x15 reps with supervision. Outcome: Progressing Goal: LT - [facility] 5 Pt and/or family will verbalize and [...] Burt MD - 10/26/2017 10:21 AM CDT [facility] NAME: JOSÉ MIGUEL JANG AGE: 66 y.o. : 1950 Date of Note: 10/26/2017 Room/Bed: [id number] Admit: 10/24/2017 6:32 PM [facility] Physician Initial Individualized Interdisciplinary 4 Day [...] OT Communication: decreased vocal strength at times. MOBILE LOUNGE DRIVER Cognition: WFL MOBILE LOUNGE DRIVER Communication: WFL MOBILE LOUNGE DRIVER Swallowing: Mild: Mechanical soft consistency with thin liquids Prognosis:Medical and Functional Prognosis: Good Plan Of Care Discharge Plan: Anticipated destination post discharge from inpatient rehab: community discharge with assist Discharge Plan after IRF stay: Return home with and adult son Anticipated Discharge Date/Estimated Length of Stay/Duration of Rehabilitation: Estimated Length ofStay: 14 days CURRENT MEDICAL DIAGNOSES: Active Problems: Chronic atrial fibrillation ([facility]) Former smoker COPD (chronic obstructive pulmonary disease) ([facility]) Hypercapnic respiratory failure ([facility]) Diskitis Pneumonia The following is a list [...] Frequency Start Date End Date Collaborate with machine brusher -- 10/24/17 -- Problem: Lack of Knowledge: [...] 10/25/17 -- Goal Start Date End Date [facility] Patient will verbalize an acceptable level of pain 10/25/17 -- Problem: OT [facility] Start Date: 10/25/17 Goal Start Date End Date [facility] 1 10/25/17 -- Goal Details: Pt to dress modified IND Goal Start Date End Date [facility] 2 10/25/17 -- Goal Details: Pt to groom modified IND Goal Start Date End Date [facility] 3 10/25/17 -- Goal Details: Pt to bathe with transfer modified IND Goal Start Date End Date [facility] 4 10/25/17 -- Goal Details: Pt to toilet with transfer modified IND Goal Start Date End Date [facility] 5 10/25/17 -- Goal Details: Pt to complete UE HEP with IND to promote IND with self care and functional transfers Problem: MOBILE LOUNGE DRIVER [facility] Start Date: 10/25/17 Goal Start Date End Date [facility] 1 10/25/17 -- Goal Details: Patient will tolerate regular consistency with thin liquids without clinical overt s/s of aspiration. Goal Start Date End Date [facility] 2 10/25/17 -- Goal Details: Patient will complete 3 sets of 10 pharyngeal strengthening exercises Problem: Cognitive: Start Date: 10/25/17 Goal Start Date End Date [facility] 1 10/25/17 -- Goal Details: Patient will execute multiple elements of a task with supervision Goal Start Date End Date [facility] 2 10/25/17 -- Goal Details: Patient will increase problem solving to complete tasks at 90% or with supervision Problem: Physical Regulation: Start Date: 10/25/17 Goal Start Date End Date [facility] 3 10/25/17 -- Goal Details: Patient will increase general strength/coordination through various exercises with supervision until disch Problem: Respiratory: Start Date: 10/25/17 Goal Start Date End Date [facility] 4 10/25/17 -- Goal Details: Patient will maintain/increase SPO2 by 1% in at least one session prior to disch Goal Start Date End Date [facility] 5 10/25/17 -- Goal Details: Patient will increase pulmonary function through various exercises with supervision until disch Problem: PT [facility] Start Date: 10/25/17 Goal Start Date End Date [facility] 10/25/17 -- Goal Details: Pt will roll SARAH and supine<-->sit EOB with supervision and bedrails as needed.Pt will sit<-->stand with minimum assist and appropriate assistive device. Pt will transfer bed<-->wheelchair/chair with minimum assist and appropriate assistive device. Goal Start Date End Date [facility] 2 10/25/17 -- Goal Details: Pt will ambulate 150' w/ minimum assist and appropriate assistive device. Pt will ambulate up/down 4 stairs with mod assist and SARAH rails. Goal Start Date End Date [facility] 3 10/25/17 -- Goal Details: Pt will propel WC 150' with supervision and extra time. Goal Start Date End Date [facility] 4 10/25/17 -- Goal Details: Pt will complete SARAH LE HEP x15 reps with supervision. Goal Start Date End Date [facility] 5 10/25/17 -- Goal Details: Pt and/or [...] Expected intensity and frequency of Speech Therapy (MOBILE LOUNGE DRIVER): 1 hour per day per day over [...] the hospital since Jul.05. 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 He is using his life time reserve days now and has [facility] through his as secondary. Pt was very active. He was involved in [place], 6 different [employer] groups in [place]. 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 His is also active in community. He did the cooking And his own laundry. They have a multilevel home with one entry step, then family room area and then 7 steps up to bedrooom. Pt has the option to make a bedroom on family room level. He has access to dme from [employer]. They have a adult son who lives with them. His goal is to be walking by Father' s day. He did have a cpap at home but has not used it in years. [facility] where he got it is no [...] Date of : 1950 Sex: Male Room/Bed: [place] [address] Admitting Diagnosis: DEBILITY Admit Date/Time: 10/24/2017 [...] 10/25/2017 ??? COPD (chronic obstructive pulmonary disease) ([facility]) 10/25/2017 ??? Hypercapnic respiratory failure ([facility]) 10/25/2017 ??? Diskitis 10/25/2017 ??? Pneumonia 10/25/2017 ??? Chronic atrial fibrillation ([facility]) 02/22/2017 Conference Led by: (Physician Name, Credentials and Specialty): Rachna Burt MD Team Members Present: Physician Reshipping Clerk: Rachna Burt MD Nursing Reshipping Clerk: Rocío Murguia RN (Mila Gonzalez RN) Social Work Reshipping Clerk: Other (comment) (Jose Alberto SANCHEZ) PT Reshipping Clerk: Kateryna Lunsford PT OT Reshipping Clerk: Josefa Hardwick OT MOBILE LOUNGE DRIVER Reshipping Clerk: (Christina Chakraborty MOBILE LOUNGE DRIVER) Patient/Family Present: Patient Present: No Patient's Family [...] Frequency Start Date End Date Collaborate with machine brusher -- 10/24/17 -- Problem: Lack of Knowledge: [...] 10/25/17 -- Goal Start Date End Date [facility] - Patient will verbalize an acceptable level of pain 10/25/17 -- Problem: OT [facility] Start Date: 10/25/17 Goal Start Date End Date [facility] 1 10/25/17 -- Goal Details: Pt to dress modified IND Goal Start Date End Date [facility] 2 10/25/17 -- Goal Details: Pt to groom modified IND Goal Start Date End Date [facility] 3 10/25/17 -- Goal Details: Pt to bathe with transfer modified IND Goal Start Date End Date [facility] 4 10/25/17 -- Goal Details: Pt to toilet with transfer modified IND Goal Start Date End Date [facility] 5 10/25/17 -- Goal Details: Pt to complete UE HEP with IND to promote IND with self care and functional transfers Problem: MOBILE LOUNGE DRIVER [facility] Start Date: 10/25/17 Goal Start Date End Date [facility] 1 10/25/17 -- Goal Details: Patient will tolerate regular consistency with thin liquids without clinical overt s/s of aspiration. Goal Start Date End Date [facility] 2 10/25/17 -- Goal Details: Patient will complete 3 sets of 10 pharyngeal strengthening exercises Problem: Cognitive: Start Date: 10/25/17 Goal Start Date End Date [facility] 1 10/25/17 -- Goal Details: Patient will execute multiple elements of a task with supervision Goal Start Date End Date [facility] 2 10/25/17 -- Goal Details: Patient will increase problem solving to complete tasks at 90% or with supervision Problem: Physical Regulation: Start Date: 10/25/17 Goal Start Date End Date [facility] 3 10/25/17 -- Goal Details: Patient will increase general strength/coordination through various exercises with supervision until disch Problem: Respiratory: Start Date: 10/25/17 Goal Start Date End Date [facility] 4 10/25/17 -- Goal Details: Patient will maintain/increase SPO2 by 1% in at least one session prior to disch Goal Start Date End Date [facility] 5 10/25/17 -- Goal Details: Patient will increase pulmonary function through various exercises with supervision until disch Current Functional Status: PT Functional Mobility: pt is total assist for bed<-->WC transfers via garrett lift, propels WC100' w/ minimum assist for turns/steering and extra time, sit<-->sap business objects consultant // bars x3 reps with max assist [...] OT Communication: decreased vocal strength at times. MOBILE LOUNGE DRIVER Cognition: WFL MOBILE LOUNGE DRIVER Communication: WFL MOBILE LOUNGE DRIVER Swallowing: Mild: Mechanical soft consistency with thin liquids Caregiver at Discharge: ,son,heater operator helper Living Setting at Discharge: Patient expects to be discharged to:: Private residence Steps: , , Anticipated Discharge Date: 11/15/17 Potential Custodial Needs/Follow-up: Potential Custodial Needs: Therapies, Anticipated Supervision:intermittent Anticipated Equipment Needs: [...] Patient living at home with and son SIGNAL SYSTEM TESTING MAINTAINER and reports managing his own medications/finances and cooking. 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 Patient is also actively involved with local organizations (patient was in the [employer] for six years during[employer] [place] [employer]). Patient and his would like him to improve his mobility prior to disch. * Plan of Care - Christina Chakraborty SLP - 10/25/2017 12:49 PM CDT Problem: MOBILE LOUNGE DRIVER Misc Goal: LTG - Misc 1 Patient will tolerate regular consistency with thin liquids without clinical overt s/s of aspiration. Outcome: Progressing Goal: LTG - Misc 2 Patient will complete 3 sets of 10 pharyngeal strengthening exercises Outcome: Progressing * Assessment & Plan Note - Александр Espino Jr., MD - 10/25/2017 9:10 AM CDT [...] for pneumonia, empyema prior to transfer to [facility]. Finished Bactrim for stenotrophomonas pneumonia here. Continue to observe off antibiotics. * Assessment & Plan Note - Александр Espino Jr., MD - 10/25/2017 8:56 AM CDT Associated Problem(s): Chronic atrial fibrillation (HCC) Normal sinus rhythm by exam. Monitor for bleeding ( had bleeding around his tracheostomy, skin tears while at [facility]). Continue amiodarone, aspirin, Lipitor, metoprolol, apixaban * [...] Results * eGFR (11/07/2017 6:15 AM CDT) [facility] eGFR 94 mL/min/1.7 3 m2 [facility] Comment: Interpretive Data Reference Interval Normal ?>/= 90 mL/min/1.73m2 Mildly decreased* ? 60 - 89 mL/min/1.73m2 Mildly to moderately decreased ?45 - 59 mL/min/1.73m2 Moderately to severely decreased ??30 - 44 mL/min/1.73m2 Severely decreased ?15 - 29 mL/min/1.73m2 Kidney Failure ?< 15 ??mL/min/1.73m2 *Relative to young adult level If -[place] Citizen multiply value by 1.16. Estimated glomerular filtration [...] AM CDT 11/07/2017 6:24 AM CDT Narrative [facility] - 11/07/2017 6:50 AM CDT us Rachna Burt MD LAB BLOOD ORDERABLES Final Re sult [facility] [address] Department [place] [address] * (ABNORMAL) Differential, auto (11/07/2017 6:15 AM CDT) Neutrophil abs 3.9 1.7 - 6.5 K/cumm [facility] Imm gran abs 0.0 0.0 - 0.1 K/cumm [facility] Lymphocyte abs 0.6(L) 0.8 - 3.3 K/cumm [facility] Monocyte abs 0.6 0.2 - 0.8 K/cumm [facility] Eosinophil abs 0.6(H) 0.0 - 0.5 K/cumm [facility] Basophil abs 0.0 0.0 - 0.1 K/cumm [facility] Neutrophil pct 68.4 % [facility] Comment: Interpretive Data Percent cell count reference ranges are not reported, since discordance with absolute values may lead to misinterpretation of CBC data. Current Interpretive Data was last revised on 2017. Imm gran pct 0.5 % [facility] Comment: Interpretive Data Percent cell count reference ranges are not reported, since discordance with absolute values may lead to misinterpretation of CBC data. Current Interpretive Data was last revised on 2017. Lymphocyte pct 9.7 % [facility] Comment: Interpretive Data Percent cell count reference ranges are not reported, since discordance with absolute values may lead to misinterpretation of CBC data. Current Interpretive Data was last revised on 2017. Monocyte pct 10.8 % [facility] Comment: Interpretive Data Percent cell count reference ranges are not reported, since discordance with absolute values may lead to misinterpretation of CBC data. Current Interpretive Data was last revised on 2017. Eosinophil pct 10.4 % [facility] Comment: Interpretive Data Percent cell count reference ranges are not reported, since discordance with absolute values may lead to misinterpretation of CBC data. Current Interpretive Data was last revised on 2017. Basophil pct 0.2 % [facility] Comment: Interpretive Data Percent cell count reference ranges are not reported, since discordance with absolute values may lead to misinterpretation of CBC data. Current Interpretive Data was last revised on 2017. Blood specimen (specimen) 11/07/2017 6:15 AM CDT 11/07/2017 6:24 AM CDT Narrative [facility] - 11/07/2017 6:39 AM CDT us Rachna Burt MD LAB BLOOD ORDERABLES Final Re sult [facility] [address] Department [place] [address] * (ABNORMAL) Basic metabolic panel (11/07/2017 6:15 AM CDT) Sodium 138 135 - 145 mmol/L [facility] Potassium, pl 3.7 3.3 - 4.9 mmol/L [facility] Chloride 100 97 - 110 mmol/L [facility] CO2 27 22 - 32 mmol/L [facility] BUN 16 8 - 25 mg/dL [facility] Glucose 83 70 - 199 mg/dL [facility] Comment: Interpretive Data Fasting glucose >/= 126 [...] 2017. Creatinine 0.76(L) 0.80 - 1.30 mg/dL [facility] Calcium 8.5 8.5 - 10.3 mg/dL [facility] Anion gap 11 2 - 15 mmol/L [facility] Blood specimen (specimen) 11/07/2017 6:15 AM CDT 11/07/2017 6:24 AM CDT Narrative [facility] - 11/07/2017 6:50 AM CDT us Rachna Burt MD LAB BLOOD ORDERABLES Final Re sult [facility] [address] Department [place] [address] * (ABNORMAL) CBC with auto differential (11/07/2017 6:15 AM CDT) WBC 5.7 3.8 - 9.9 K/cumm [facility] RBC 3.25(L) 4.30 - 5.80 M/cumm [facility] Hgb 9.5(L) 13.0 - 17.5 g/dL [facility] Hct 31.5(L) 38.9 - 50.3 % [facility] MCV 96.9(H) 81.3 - 96.4 fL [facility] MCH 29.2 27.1 - 33.3 pg [facility] MCHC 30.2(L) 32.3 - 35.7 g/dL [facility] RDW CV 17.6(H) 11.1 - 14.9 % [facility] RDW SD 63.6(H) 35.7 - 48.1 fL [facility] Plt 205 150 - 400 K/cumm [facility] MPV 11.5 9.1 - 12.3 fL [facility] NRBC abs 0.00 0.00 - 0.01 K/cumm [facility] Blood specimen (specimen) 11/07/2017 6:15 AM CDT 11/07/2017 6:24 AM CDT Narrative [facility] - 11/07/2017 6:39 AM CDT us Rachna Burt MD LAB BLOOD ORDERABLES Final Re sult Performing Organization Address [facility] [[email or web address]] Co de Phone Number [facility] [address] Department [employer] [place] [address] * MRSA PCR (11/05/2017 11:45 AM CDT) Pathologist [facility] PCR Scrn, Methicillin resistant Staphylococcus aureus (MRSA) Negative Negative [facility] Nasal 11/05/2017 11:4 5 AM CDT 11/05/2017 12:08 PM CDT Narrative [facility] - 11/05/2017 1:39 PM CDT us Jason Shore Jr., BELLA LAB MICROBIOLOGY - GENER AL ORDERABLES Final Result Performing Organization Address [facility] de Phone Number [facility] [address] Department [employer] [place] [address] * MRSA PCR (11/04/2017 9:41 AM CDT) [facility] PCR Scrn, Methicillin resistant Staphylococcus aureus (MRSA) Negative Negative [facility] Nasal 11/04/2017 9:41 AM CDT 11/04/2017 9:56 AM CDT Narrative [facility] - 11/04/2017 11:08 AM CDT us Jason Shore Jr., NP LAB MICROBIOLOGY - GENER AL ORDERABLES Final Result Performing Organization Address [facility] [[email or web address]] Co de Phone Number [facility] [address] [place] [address] * eGFR (11/03/2017 5:38 AM CDT) [facility] eGFR 95 mL/min/1.7 3 m2 [facility] Comment: Interpretive Data Reference Interval Normal ?>/= 90 mL/min/1.73m2 Mildly decreased* ? 60 - 89 mL/min/1.73m2 Mildly to moderately decreased ?45 - 59 mL/min/1.73m2 Moderately to severely decreased ??30 - 44 mL/min/1.73m2 Severely decreased ?15 - 29 mL/min/1.73m2 Kidney Failure ?< 15 ??mL/min/1.73m2 *Relative to young adult level If -[place] Citizen multiply value by 1.16. Estimated glomerular filtration [...] AM CDT 11/03/2017 7:25 AM CDT Narrative [facility] - 11/03/2017 7:55 AM CDT us Rachna Burt MD LAB BLOOD ORDERABLES Final Re sult [facility] [address] Department [place] [address] * (ABNORMAL) Differential, auto (11/03/2017 5:38 AM CDT) Neutrophil abs 4.2 1.7 - 6.5 K/cumm [facility] Imm gran abs 0.0 0.0 - 0.1 K/cumm [facility] Lymphocyte abs 0.5(L) 0.8 - 3.3 K/cumm [facility] Monocyte abs 0.5 0.2 - 0.8 K/cumm [facility] Eosinophil abs 0.3 0.0 - 0.5 K/cumm [facility] Basophil abs 0.0 0.0 - 0.1 K/cumm [facility] Neutrophil pct 77.0 % [facility] Comment: Interpretive Data Percent cell count reference ranges are not reported, since discordance with absolute values may lead to misinterpretation of CBC data. Current Interpretive Data was last revised on 2017. Imm gran pct 0.5 % [facility] Comment: Interpretive Data Percent cell count reference ranges are not reported, since discordance with absolute values may lead to misinterpretation of CBC data. Current Interpretive Data was last revised on 2017. Lymphocyte pct 8.3 % [facility] Comment: Interpretive Data Percent cell count reference ranges are not reported, since discordance with absolute values may lead to misinterpretation of CBC data. Current Interpretive Data was last revised on 2017. Monocyte pct 9.1 % [facility] Comment: Interpretive Data Percent cell count reference ranges are not reported, since discordance with absolute values may lead to misinterpretation of CBC data. Current Interpretive Data was last revised on 2017. Eosinophil pct 4.7 % [facility] Comment: Interpretive Data Percent cell count reference ranges are not reported, since discordance with absolute values may lead to misinterpretation of CBC data. Current Interpretive Data was last revised on 2017. Basophil pct 0.4 % [facility] Comment: Interpretive Data Percent cell count reference ranges are not reported, since discordance with absolute values may lead to misinterpretation of CBC data. Current Interpretive Data was last revised on 2017. Blood specimen (specimen) 11/03/2017 5:38 AM CDT 11/03/2017 7:25 AM CDT Narrative [facility] - 11/03/2017 7:33 AM CDT us Rachna Burt MD LAB BLOOD ORDERABLES Final Re sult [facility] [address] Department [place] [address] * (ABNORMAL) Comprehensive metabolic panel (11/03/2017 5:38 AM CDT) Sodium 139 135 - 145 mmol/L [facility] Potassium, pl 4.1 3.3 - 4.9 mmol/L [facility] CO2 29 22 - 32 mmol/L [facility] BUN 14 8 - 25 mg/dL [facility] Glucose 89 70 - 199 mg/dL [facility] Comment: Interpretive Data Fasting glucose >/= 126 [...] 2017. Creatinine 0.74(L) 0.80 - 1.30 mg/dL [facility] Calcium 8.7 8.5 - 10.3 mg/dL [facility] Chloride 100 97 - 110 mmol/L [facility] Albumin 3.0(L) 3.5 - 5.0 g/dL [facility] AST 28 10 - 50 Units/L [facility] ALT 38 7 - 55 Units/L [facility] Alk phos 144(H) 40 - 130 Units/L [facility] Bilirubin, total 0.3 0.1 - 1.2 mg/dL [facility] Protein, pl 5.8(L) 6.5 - 8.5 g/dL [facility] Anion gap 10 2 - 15 mmol/L [facility] Blood specimen (specimen) 11/03/2017 5:38 AM CDT 11/03/2017 7:25 AM CDT Narrative [facility] - 11/03/2017 7:55 AM CDT us Rachna Burt MD LAB BLOOD ORDERABLES Final Re sult [facility] [address] Department of [employer] [place] [address] * (ABNORMAL) CBC with auto differential (11/03/2017 5:38 AM CDT) WBC 5.5 3.8 - 9.9 K/cumm [facility] RBC 3.22(L) 4.30 - 5.80 M/cumm [facility] Hgb 9.3(L) 13.0 - 17.5 g/dL [facility] Hct 31.1(L) 38.9 - 50.3 % [facility] MCV 96.6(H) 81.3 - 96.4 fL [facility] MCH 28.9 27.1 - 33.3 pg [facility] MCHC 29.9(L) 32.3 - 35.7 g/dL [facility] RDW CV 18.1(H) 11.1 - 14.9 % [facility] RDW SD 64.4(H) 35.7 - 48.1 fL [facility] Plt 160 150 - 400 K/cumm [facility] MPV 11.8 9.1 - 12.3 fL [facility] NRBC abs 0.00 0.00 - 0.01 K/cumm [facility] Blood specimen (specimen) 11/03/2017 5:38 AM CDT 11/03/2017 7:25 AM CDT Narrative [facility] - 11/03/2017 7:33 AM CDT us Rachna Burt MD LAB BLOOD ORDERABLES Final Re sult [facility] [address] Department [place] [address] * (ABNORMAL) Blood gas, arterial (10/31/2017 5:12 AM CDT) pH, Art 7.43 7.35 - 7.45 [facility] PCO2, Arterial 39 35 - 45 mmHg [facility] PO2, Arterial 166(H) 83 - 108 mmHg [facility] BE, art 2 mmol/L [facility] Comment: Interpretive Data No Reference Range Established Current Interpretive Data was last revised on 2017 O2 Sat Art (Calculated) 100(H) 94 - 98 % [facility] HCO3 Art (Calculated) 26 20 - 30 mmol/L [facility] Blood specimen (specimen) 10/31/2017 5:12 AM CDT 10/31/2017 5:13 AM CDT Narrative [facility] - 10/31/2017 5:16 AM CDT us Александр Espino Jr., MD LAB BLOOD ORDERABLES Fi nal Result [facility] [address] Department [place] [address] * eGFR (10/31/2017 3:57 AM CDT) eGFR 95 mL/min/1.7 3 m2 [facility] Comment: Interpretive Data Reference Interval Normal ?>/= 90 mL/min/1.73m2 Mildly decreased* ? 60 - 89 mL/min/1.73m2 Mildly to moderately decreased ?45 - 59 mL/min/1.73m2 Moderately to severely decreased ??30 - 44 mL/min/1.73m2 Severely decreased ?15 - 29 mL/min/1.73m2 Kidney Failure ?< 15 ??mL/min/1.73m2 *Relative to young adult level If -[place] Citizen multiply value by 1.16. Estimated glomerular filtration [...] AM CDT 10/31/2017 4:23 AM CDT Narrative [facility] - 10/31/2017 4:48 AM CDT Adam Pastor MD LAB BLOOD ORDERABLES Final Re sult [facility] [address] Department [place] [address] * (ABNORMAL) Differential, auto (10/31/2017 3:57 AM CDT) Neutrophil abs 5.4 1.7 - 6.5 K/cumm [facility] Imm gran abs 0.0 0.0 - 0.1 K/cumm [facility] Lymphocyte abs 0.6(L) 0.8 - 3.3 K/cumm [facility] Monocyte abs 0.8 0.2 - 0.8 K/cumm [facility] Eosinophil abs 0.2 0.0 - 0.5 K/cumm [facility] Basophil abs 0.0 0.0 - 0.1 K/cumm [facility] Neutrophil pct 76.9 % [facility] Comment: Interpretive Data Percent cell count reference ranges are not reported, since discordance with absolute values may lead to misinterpretation of CBC data. Current Interpretive Data was last revised on 2017. Imm gran pct 0.7 % [facility] Comment: Interpretive Data Percent cell count reference ranges are not reported, since discordance with absolute values may lead to misinterpretation of CBC data. Current Interpretive Data was last revised on 2017. Lymphocyte pct 7.7 % [facility] Comment: Interpretive Data Percent cell count reference ranges are not reported, since discordance with absolute values may lead to misinterpretation of CBC data. Current Interpretive Data was last revised on 2017. Monocyte pct 11.4 % [facility] Comment: Interpretive Data Percent cell count reference ranges are not reported, since discordance with absolute values may lead to misinterpretation of CBC data. Current Interpretive Data was last revised on 2017. Eosinophil pct 3.2 % [facility] Comment: Interpretive Data Percent cell count reference ranges are not reported, since discordance with absolute values may lead to misinterpretation of CBC data. Current Interpretive Data was last revised on 2017. Basophil pct 0.1 % [facility] Comment: Interpretive Data Percent cell count reference ranges are not reported, since discordance with absolute values may lead to misinterpretation of CBC data. Current Interpretive Data was last revised on 2017. Blood specimen (specimen) 10/31/2017 3:57 AM CDT 10/31/2017 4:24 AM CDT Narrative [facility] - 10/31/2017 4:40 AM CDT us Adam Pastor MD LAB BLOOD ORDERABLES Final Re sult [facility] [address] Department [place] [address] * (ABNORMAL) CBC with auto differential (10/31/2017 3:57 AM CDT) WBC 7.1 3.8 - 9.9 K/cumm [facility] RBC 3.14(L) 4.30 - 5.80 M/cumm [facility] Hgb 9.1(L) 13.0 - 17.5 g/dL [facility] Hct 29.9(L) 38.9 - 50.3 % [facility] MCV 95.2 81.3 - 96.4 fL [facility] MCH 29.0 27.1 - 33.3 pg [facility] MCHC 30.4(L) 32.3 - 35.7 g/dL [facility] RDW CV 18.3(H) 11.1 - 14.9 % [facility] RDW SD 63.6(H) 35.7 - 48.1 fL [facility] Plt 137(L) 150 - 400 K/cumm [facility] MPV 12.9(H) 9.1 - 12.3 fL [facility] NRBC abs 0.00 0.00 - 0.01 K/cumm [facility] Blood specimen (specimen) 10/31/2017 3:57 AM CDT 10/31/2017 4:24 AM CDT Narrative [facility] - 10/31/2017 4:40 AM CDT us Adam Pastor MD LAB BLOOD ORDERABLES Final Re sult [facility] [address] Department [place] [address] * (ABNORMAL) Basic metabolic panel (10/31/2017 3:57 AM CDT) Sodium 134(L) 135 - 145 mmol/L [facility] Potassium, pl 4.3 3.3 - 4.9 mmol/L [facility] Comment:Moderately Hemolyzed Specimen Chloride 97 97 - 110 mmol/L [facility] CO2 25 22 - 32 mmol/L [facility] BUN 15 8 - 25 mg/dL [facility] Glucose 92 70 - 199 mg/dL [facility] Comment: Interpretive Data Fasting glucose >/= 126 [...] 2017. Creatinine 0.73(L) 0.80 - 1.30 mg/dL [facility] Calcium 8.3(L) 8.5 - 10.3 mg/dL [facility] Anion gap 12 2 - 15 mmol/L [facility] Blood specimen (specimen) 10/31/2017 3:57 AM CDT 10/31/2017 4:23 AM CDT Narrative [facility] - 10/31/2017 4:48 AM CDT us Adam Pastor MD LAB BLOOD ORDERABLES Final Re sult [facility] [address] Department [place] [address] * XR Chest Pa Lateral 2 Views [...] * Glucose POC (10/30/2017 6:44 AM CDT) [facility] Glucose, POC 98 70 - 140 mg/dL [facility] Comment: For Glucose values <35 mg/dl when Hematocrit is >60 mg/dl,the test may not accurately detect significant hypoglycemia,and testing in the Laboratory should be considered if clinically indicated. Blood specimen (specimen) 10/30/2017 6:44 AM CDT 10/30/2017 6:44 AM CDT Narrative [facility] - 10/30/2017 6:45 AM CDT us Rachna Burt MD POINT OF CARE TEST ORDERABLES Final Result [facility] [address] Department [place] [address] * eGFR (10/30/2017 4:01 AM CDT) [facility] eGFR 86 mL/min/1.7 3 m2 [facility] Comment: Interpretive Data Reference Interval Normal ?>/= 90 mL/min/1.73m2 Mildly decreased* ? 60 - 89 mL/min/1.73m2 Mildly to moderately decreased ?45 - 59 mL/min/1.73m2 Moderately to severely decreased ??30 - 44 mL/min/1.73m2 Severely decreased ?15 - 29 mL/min/1.73m2 Kidney Failure ?< 15 ??mL/min/1.73m2 *Relative to young adult level If -[place] Citizen multiply value by 1.16. Estimated glomerular filtration [...] AM CDT 10/30/2017 4:30 AM CDT Narrative [facility] - 10/30/2017 4:56 AM CDT Rachna Burt MD LAB BLOOD ORDERABLES Final Re sult Performing Organization Address [facility] [[email or web address]] Co de Phone Number [facility] [address] Department [employer] [place] [address] * Phosphorus (10/30/2017 4:01 AM CDT) Phosphorus, pl 3.1 2.3 - 4.5 mg/dL [facility] Blood specimen (specimen) 10/30/2017 4:01 AM CDT 10/30/2017 4:30 AM CDT Narrative [facility] - 10/30/2017 4:56 AM CDT Rachna Burt MD LAB BLOOD ORDERABLES Final Re sult Performing Organization Address [facility] de Phone Number [facility] [address] [facility] [place], [place] [id number] * (ABNORMAL) Comprehensive metabolic panel (10/30/2017 4:01 AM CDT) Sodium 133(L) 135 - 145 mmol/L [facility] Potassium, pl 4.1 3.3 - 4.9 mmol/L [facility] CO2 25 22 - 32 mmol/L [facility] BUN 15 8 - 25 mg/dL [facility] Glucose 97 70 - 199 mg/dL [facility] Comment: Interpretive Data Fasting glucose >/= 126 [...] 2017. Creatinine 0.91 0.80 - 1.30 mg/dL [facility] Calcium 8.9 8.5 - 10.3 mg/dL [facility] Chloride 98 97 - 110 mmol/L [facility] Albumin 3.2(L) 3.5 - 5.0 g/dL [facility] AST 27 10 - 50 Units/L [facility] ALT 47 7 - 55 Units/L [facility] Alk phos 120 40 - 130 Units/L [facility] Bilirubin, total 0.4 0.1 - 1.2 mg/dL [facility] Protein, pl 5.7(L) 6.5 - 8.5 g/dL [facility] Anion gap 10 2 - 15 mmol/L [facility] Blood specimen (specimen) 10/30/2017 4:01 AM CDT 10/30/2017 4:30 AM CDT Narrative [facility] - 10/30/2017 4:56 AM CDT Rachna Burt MD LAB BLOOD ORDERABLES Final Re sult [facility] [address] Department [place] [address] * Glucose POC (10/29/2017 4:58 PM CDT) [facility] Glucose, POC 112 70 - 140 mg/dL [facility] Comment: For Glucose values <35 mg/dl when Hematocrit is >60 mg/dl,the test may not accurately detect significant hypoglycemia,and testing in the Laboratory should be considered if clinically indicated. Blood specimen (specimen) 10/29/2017 4:58 PM CDT 10/29/2017 4:58 PM CDT Narrative [facility] - 10/29/2017 5:00 PM CDT us Rachna Burt MD POINT OF CARE TEST ORDERABLES Final Result Performing Organization Address [facility] [[email or web address]] Co de Phone Number [facility] [address] Department [employer] [place] [address] * (ABNORMAL) Glucose POC (10/29/2017 11:58 AM CDT) Glucose, POC 157(H) 70 - 140 mg/dL [facility] Comment: For Glucose values <35 mg/dl when Hematocrit is >60 mg/dl,the test may not accurately detect significant hypoglycemia,and testing in the Laboratory should be considered if clinically indicated. Blood specimen (specimen) 10/29/2017 11:58 AM CDT 10/29/2017 11:58 AM CDT Ken [facility] - 10/29/2017 12:00 PM CDT us Rachna Burt MD POINT OF CARE TEST ORDERABLES Final Result Performing Organization Address [facility] de Phone Number [facility] [address] [place] [address] * Glucose POC (10/29/2017 6:22 AM CDT) [facility] Glucose, POC 108 70 - 140 mg/dL [facility] Comment: For Glucose values <35 mg/dl when Hematocrit is >60 mg/dl,the test may not accurately detect significant hypoglycemia,and testing in the Laboratory should be considered if clinically indicated. Blood specimen (specimen) 10/29/2017 6:22 AM CDT 10/29/2017 6:22 AM CDT Narrative [facility] - 10/29/2017 6:25 AM CDT us Rachna Burt MD POINT OF CARE TEST ORDERABLES Final Result Performing Organization Address [facility] [[email or web address]] Co de Phone Number [facility] [address] Department [employer] [place] [address] * eGFR (10/29/2017 3:07 AM CDT) [facility] eGFR 83 mL/min/1.7 3 m2 [facility] Comment: Interpretive Data Reference Interval Normal ?>/= 90 mL/min/1.73m2 Mildly decreased* ? 60 - 89 mL/min/1.73m2 Mildly to moderately decreased ?45 - 59 mL/min/1.73m2 Moderately to severely decreased ??30 - 44 mL/min/1.73m2 Severely decreased ?15 - 29 mL/min/1.73m2 Kidney Failure ?< 15 ??mL/min/1.73m2 *Relative to young adult level If -[place] Citizen multiply value by 1.16. Estimated glomerular filtration [...] AM CDT 10/29/2017 3:25 AM CDT Narrative [facility] - 10/29/2017 4:01 AM CDT us Rachna Burt MD LAB BLOOD ORDERABLES Final Re sult [facility] [address] Department [place] [address] * (ABNORMAL) Comprehensive metabolic panel (10/29/2017 3:07 AM CDT) [facility] Sodium 136 135 - 145 mmol/L [facility] Potassium, pl 4.2 3.3 - 4.9 mmol/L [facility] CO2 27 22 - 32 mmol/L [facility] BUN 15 8 - 25 mg/dL [facility] Glucose 94 70 - 199 mg/dL [facility] Comment: Interpretive Data Fasting glucose >/= 126 [...] 2017. Creatinine 0.94 0.80 - 1.30 mg/dL [facility] Calcium 8.4(L) 8.5 - 10.3 mg/dL [facility] Chloride 97 97 - 110 mmol/L [facility] Albumin 3.0(L) 3.5 - 5.0 g/dL [facility] AST 22 10 - 50 Units/L [facility] ALT 45 7 - 55 Units/L [facility] Alk phos 111 40 - 130 Units/L [facility] Bilirubin, total 0.3 0.1 - 1.2 mg/dL [facility] Protein, pl 5.3(L) 6.5 - 8.5 g/dL [facility] Anion gap 12 2 - 15 mmol/L [facility] Blood specimen (specimen) 10/29/2017 3:07 AM CDT 10/29/2017 3:25 AM CDT Narrative [facility] - 10/29/2017 4:01 AM CDT us Rachna Burt MD LAB BLOOD ORDERABLES Final Re sult [facility] [address] Department [place] [address] * TSH (10/29/2017 3:07 AM CDT) Thyroid Stimulating Hormone 3.710 0.300 - 4.200 mcIUnit/mL [facility] Blood specimen (specimen) 10/29/2017 3:07 AM CDT 10/29/2017 3:25 AM CDT Ken [facility] - 10/29/2017 4:01 AM CDT Rachna Burt MD LAB BLOOD ORDERABLES Final Re sult Performing Organization Address [facility] [[email or web address]] Co de Phone Number [facility] [address] [facility] [place] [address] * Glucose POC (10/28/2017 8:17 PM CDT) Glucose, POC 126 70 - 140 mg/dL [facility] Comment: For Glucose values <35 mg/dl when Hematocrit is >60 mg/dl,the test may not accurately detect significant hypoglycemia,and testing in the Laboratory should be considered if clinically indicated. Blood specimen (specimen) 10/28/2017 8:17 PM CDT 10/28/2017 8:17 PM CDT Narrative [facility] 10/28/2017 8:26 PM CDT Result [facility] Rachna Burt MD POINT OF CARE TEST ORDERABLES Final Result Performing Organization Address [facility] de Phone Number [facility] [address] [facility] [place] [address] * Glucose POC (10/28/2017 4:45 PM CDT) Glucose, POC 136 70 - 140 mg/dL [facility] Comment: For Glucose values <35 mg/dl when Hematocrit is >60 mg/dl,the test may not accurately detect significant hypoglycemia,and testing in the Laboratory should be considered if clinically indicated. Blood specimen (specimen) 10/28/2017 4:45 PM CDT 10/28/2017 4:45 PM CDT Narrative [facility] - 10/28/2017 4:59 PM CDT Result [facility] Rachna Burt MD POINT OF CARE TEST ORDERABLES Final Result Performing Organization Address [facility] [[email or web address]] Co de Phone Number [facility] [address] [facility] [employer] [place] [address] * Glucose POC (10/28/2017 11:50 AM CDT) Glucose, POC 114 70 - 140 mg/dL [facility] Comment: For Glucose values <35 mg/dl when Hematocrit is >60 mg/dl,the test may not accurately detect significant hypoglycemia,and testing in the Laboratory should be considered if clinically indicated. Blood specimen (specimen) 10/28/2017 11:50 AM CDT 10/28/2017 11:50 AM CDT Ken [facility] - 10/28/2017 11:53 AM CDT Rachna Burt MD POINT OF CARE TEST ORDERABLES Final Result Performing Organization Address [facility] de Phone Number [facility] [address] [place] [address] * Glucose POC (10/28/2017 6:36 AM CDT) Glucose, POC 90 70 - 140 mg/dL [facility] Comment: For Glucose values <35 mg/dl when Hematocrit is >60 mg/dl,the test may not accurately detect significant hypoglycemia,and testing in the Laboratory should be considered if clinically indicated. Blood specimen (specimen) 10/28/2017 6:36 AM CDT 10/28/2017 6:36 AM CDT Narrative [facility] - 10/28/2017 6:40 AM CDT Rachna Burt MD POINT OF CARE TEST ORDERABLES Final Result Performing Organization Address [facility] [[email or web address]] Co de Phone Number [facility] [address] [place] [address] * eGFR (10/28/2017 4:54 AM CDT) eGFR 89 mL/min/1.7 3 m2 [facility] Comment: Interpretive Data Reference Interval Normal ?>/= 90 mL/min/1.73m2 Mildly decreased* ? 60 - 89 mL/min/1.73m2 Mildly to moderately decreased ?45 - 59 mL/min/1.73m2 Moderately to severely decreased ??30 - 44 mL/min/1.73m2 Severely decreased ?15 - 29 mL/min/1.73m2 Kidney Failure ?< 15 ??mL/min/1.73m2 *Relative to young adult level If -[place] Citizen multiply value by 1.16. Estimated glomerular filtration [...] AM CDT 10/28/2017 5:19 AM CDT Narrative [facility] - 10/28/2017 5:48 AM CDT us Rachna Burt MD LAB BLOOD ORDERABLES Final Re sult [facility] [address] Department [place] [address] * (ABNORMAL) Differential, auto (10/28/2017 4:54 AM CDT) Neutrophil abs 6.2 1.7 - 6.5 K/cumm [facility] Imm gran abs 0.1 0.0 - 0.1 K/cumm [facility] Lymphocyte abs 0.5(L) 0.8 - 3.3 K/cumm [facility] Monocyte abs 0.7 0.2 - 0.8 K/cumm [facility] Eosinophil abs 0.2 0.0 - 0.5 K/cumm [facility] Basophil abs 0.0 0.0 - 0.1 K/cumm [facility] Neutrophil pct 80.6 % [facility] Comment: Interpretive Data Percent cell count reference ranges are not reported, since discordance with absolute values may lead to misinterpretation of CBC data. Current Interpretive Data was last revised on 2017. Imm gran pct 1.0 % [facility] Comment: Interpretive Data Percent cell count reference ranges are not reported, since discordance with absolute values may lead to misinterpretation of CBC data. Current Interpretive Data was last revised on 2017. Lymphocyte pct 6.1 % [facility] Comment: Interpretive Data Percent cell count reference ranges are not reported, since discordance with absolute values may lead to misinterpretation of CBC data. Current Interpretive Data was last revised on 2017. Monocyte pct 9.4 % [facility] Comment: Interpretive Data Percent cell count reference ranges are not reported, since discordance with absolute values may lead to misinterpretation of CBC data. Current Interpretive Data was last revised on 2017. Eosinophil pct 2.8 % [facility] Comment: Interpretive Data Percent cell count reference ranges are not reported, since discordance with absolute values may lead to misinterpretation of CBC data. Current Interpretive Data was last revised on 2017. Basophil pct 0.1 % [facility] Comment: Interpretive Data Percent cell count reference ranges are not reported, since discordance with absolute values may lead to misinterpretation of CBC data. Current Interpretive Data was last revised on 2017. Blood specimen (specimen) 10/28/2017 4:54 AM CDT 10/28/2017 5:18 AM CDT Narrative [facility] - 10/28/2017 5:27 AM CDT Adam Pastor MD LAB BLOOD ORDERABLES Final Re sult [facility] [address] Department [place] [address] * (ABNORMAL) Comprehensive metabolic panel (10/28/2017 4:54 AM CDT) Sodium 134(L) 135 - 145 mmol/L [facility] Potassium, pl 4.3 3.3 - 4.9 mmol/L [facility] CO2 26 22 - 32 mmol/L [facility] BUN 15 8 - 25 mg/dL [facility] Glucose 97 70 - 199 mg/dL [facility] Comment: Interpretive Data Fasting glucose >/= 126 [...] 2017. Creatinine 0.86 0.80 - 1.30 mg/dL [facility] Calcium 8.9 8.5 - 10.3 mg/dL [facility] Chloride 98 97 - 110 mmol/L [facility] Albumin 3.0(L) 3.5 - 5.0 g/dL [facility] AST 20 10 - 50 Units/L [facility] ALT 47 7 - 55 Units/L [facility] Alk phos 106 40 - 130 Units/L [facility] Bilirubin, total 0.4 0.1 - 1.2 mg/dL [facility] Protein, pl 5.4(L) 6.5 - 8.5 g/dL [facility] Anion gap 10 2 - 15 mmol/L [facility] Blood specimen (specimen) 10/28/2017 4:54 AM CDT 10/28/2017 5:19 AM CDT Narrative [facility] - 10/28/2017 5:48 AM CDT us Rachna Burt MD LAB BLOOD ORDERABLES Final Re sult Performing Organization Address City/State/[facility] [[email or web address]] Co de Phone Number [facility] [address] Department [place] [address] * Osmolality, blood (10/28/2017 4:54 AM CDT) [facility] Osmo 277 275 - 295 mOsm/kg [facility] Blood specimen (specimen) 10/28/2017 4:54 AM CDT 10/28/2017 5:20 AM CDT Narrative [facility] - 10/28/2017 5:39 AM CDT us Adam Pastor MD LAB BLOOD ORDERABLES Final Re sult Performing Organization Address [facility] de Phone Number [facility] [address] Department [place] [address] * (ABNORMAL) CBC with auto differential (10/28/2017 4:54 AM CDT) [facility] WBC 7.8 3.8 - 9.9 K/cumm [facility] RBC 3.11(L) 4.30 - 5.80 M/cumm [facility] Hgb 9.0(L) 13.0 - 17.5 g/dL [facility] Hct 29.4(L) 38.9 - 50.3 % [facility] MCV 94.5 81.3 - 96.4 fL [facility] MCH 28.9 27.1 - 33.3 pg [facility] MCHC 30.6(L) 32.3 - 35.7 g/dL [facility] RDW CV 18.3(H) 11.1 - 14.9 % [facility] RDW SD 63.6(H) 35.7 - 48.1 fL [facility] Plt 156 150 - 400 K/cumm [facility] MPV 12.7(H) 9.1 - 12.3 fL [facility] NRBC abs 0.00 0.00 - 0.01 K/cumm [facility] Blood specimen (specimen) 10/28/2017 4:54 AM CDT 10/28/2017 5:18 AM CDT [facility] - 10/28/2017 5:27 AM CDT Adam Pastor MD LAB BLOOD ORDERABLES Final Re sult Performing Organization Address [facility] [[email or web address]] Co de Phone Number [facility] [address] [facility] [place] [address] * Glucose POC (10/27/2017 9:55 PM CDT) Glucose, POC 107 70 - 140 mg/dL [facility] Comment: For Glucose values <35 mg/dl when Hematocrit is >60 mg/dl,the test may not accurately detect significant hypoglycemia,and testing in the Laboratory should be considered if clinically indicated. Blood specimen (specimen) 10/27/2017 9:55 PM CDT 10/27/2017 9:55 PM CDT Ken [facility] - 10/27/2017 10:17 PM CDT Result [facility] Rachna Burt MD POINT OF CARE TEST ORDERABLES Final Result Performing Organization Address [facility] de Phone Number [facility] [address] [place] [address] * (ABNORMAL) Glucose POC (10/27/2017 4:57 PM CDT) Glucose, POC 156(H) 70 - 140 mg/dL [facility] Comment: For Glucose values <35 mg/dl when Hematocrit is >60 mg/dl,the test may not accurately detect significant hypoglycemia,and testing in the Laboratory should be considered if clinically indicated. Blood specimen (specimen) 10/27/2017 4:57 PM CDT 10/27/2017 4:57 PM CDT Ken [facility] - 10/27/2017 4:59 PM CDT Rachna Burt MD POINT OF CARE TEST ORDERABLES Final Result Performing Organization Address [facility]/ZIP Co de Phone Number [facility] [address] [place] [address] * Glucose POC (10/27/2017 11:51 AM CDT) Glucose, POC 110 70 - 140 mg/dL [facility] Comment: For Glucose values <35 mg/dl when Hematocrit is >60 mg/dl,the test may not accurately detect significant hypoglycemia,and testing in the Laboratory should be considered if clinically indicated. Blood specimen (specimen) 10/27/2017 11:51 AM CDT 10/27/2017 11:51 AM CDT Ken [facility] - 10/27/2017 11:53 AM CDT Rachna Burt MD POINT OF CARE TEST ORDERABLES Final Result Performing Organization Address [facility] de Phone Number [facility] [address] [place] [address] * Glucose POC (10/27/2017 6:18 AM CDT) Glucose, POC 90 70 - 140 mg/dL [facility] Comment: For Glucose values <35 mg/dl when Hematocrit is >60 mg/dl,the test may not accurately detect significant hypoglycemia,and testing in the Laboratory should be considered if clinically indicated. Blood specimen (specimen) 10/27/2017 6:18 AM CDT 10/27/2017 6:18 AM CDT Narrative [facility] - 10/27/2017 6:28 AM CDT Rachna Burt MD POINT OF CARE TEST ORDERABLES Final Result Performing Organization Address [facility] [[email or web address]] Co de Phone Number [facility] [address] [place] [address] * eGFR (10/27/2017 3:57 AM CDT) eGFR 88 mL/min/1.7 3 m2 [facility] Comment: Interpretive Data Reference Interval Normal ?>/= 90 mL/min/1.73m2 Mildly decreased* ? 60 - 89 mL/min/1.73m2 Mildly to moderately decreased ?45 - 59 mL/min/1.73m2 Moderately to severely decreased ??30 - 44 mL/min/1.73m2 Severely decreased ?15 - 29 mL/min/1.73m2 Kidney Failure ?< 15 ??mL/min/1.73m2 *Relative to young adult level If -[place] Citizen multiply value by 1.16. Estimated glomerular filtration [...] AM CDT 10/27/2017 4:29 AM CDT Narrative [facility] - 10/27/2017 4:55 AM CDT us Rachna Burt MD LAB BLOOD ORDERABLES Final Re sult [facility] [address] Department of Laboratories [place], [place] [id number] * (ABNORMAL) Comprehensive metabolic panel (10/27/2017 3:57 AM CDT) Sodium 132(L) 135 - 145 mmol/L [facility] Potassium, pl 4.3 3.3 - 4.9 mmol/L [facility] CO2 26 22 - 32 mmol/L [facility] BUN 17 8 - 25 mg/dL [facility] Glucose 87 70 - 199 mg/dL [facility] Comment: Interpretive Data Fasting glucose >/= 126 [...] 2017. Creatinine 0.89 0.80 - 1.30 mg/dL [facility] Calcium 8.8 8.5 - 10.3 mg/dL [facility] Chloride 96(L) 97 - 110 mmol/L [facility] Albumin 2.9(L) 3.5 - 5.0 g/dL [facility] AST 31 10 - 50 Units/L [facility] Comment:Slightly Hemolyzed S pecimen ALT 59(H) 7 - 55 Units/L [facility] Alk phos 111 40 - 130 Units/L [facility] Bilirubin, total 0.5 0.1 - 1.2 mg/dL [facility] Protein, pl 5.3(L) 6.5 - 8.5 g/dL [facility] Anion gap 10 2 - 15 mmol/L [facility] Blood specimen (specimen) 10/27/2017 3:57 AM CDT 10/27/2017 4:29 AM CDT Narrative [facility] - 10/27/2017 4:55 AM CDT us Rachna Burt MD LAB BLOOD ORDERABLES Final Re sult [facility] [address] Department [place] [address] * Glucose POC (10/26/2017 10:33 PM CDT) [facility] Glucose, POC 121 70 - 140 mg/dL [facility] Comment: For Glucose values <35 mg/dl when Hematocrit is >60 mg/dl,the test may not accurately detect significant hypoglycemia,and testing in the Laboratory should be considered if clinically indicated. Blood specimen (specimen) 10/26/2017 10:33 PM CDT 10/26/2017 10:33 PM CDT Ken [facility] - 10/26/2017 10:34 PM CDT Rachna Burt MD POINT OF CARE TEST ORDERABLES Final Result Performing Organization Address [facility] de Phone Number [facility] [address] [place] [address] * Glucose POC (10/26/2017 5:01 PM CDT) Glucose, POC 131 70 - 140 mg/dL [facility] Comment: For Glucose values <35 mg/dl when Hematocrit is >60 mg/dl,the test may not accurately detect significant hypoglycemia,and testing in the Laboratory should be considered if clinically indicated. Blood specimen (specimen) 10/26/2017 5:01 PM CDT 10/26/2017 5:01 PM CDT Ken [facility] - 10/26/2017 5:06 PM CDT Result [facility] Rachna Burt MD POINT OF CARE TEST ORDERABLES Final Result Performing Organization Address [facility] de Phone Number [facility] [address] [place] [address] * Glucose POC (10/26/2017 12:02 PM CDT) Glucose, POC 106 70 - 140 mg/dL [facility] Comment: For Glucose values <35 mg/dl when Hematocrit is >60 mg/dl,the test may not accurately detect significant hypoglycemia,and testing in the Laboratory should be considered if clinically indicated. Blood specimen (specimen) 10/26/2017 12:02 PM CDT 10/26/2017 12:02 PM CDT Ken [facility] - 10/26/2017 12:05 PM CDT Result [facility] Rachna Burt MD POINT OF CARE TEST ORDERABLES Final Result Performing Organization Address [facility] de Phone Number [facility] [address] [facility] [employer] [place] [address] * Glucose POC (10/26/2017 6:21 AM CDT) Pathologist [facility] Glucose, POC 97 70 - 140 mg/dL [facility] Comment: For Glucose values <35 mg/dl when Hematocrit is >60 mg/dl,the test may not accurately detect significant hypoglycemia,and testing in the Laboratory should be considered if clinically indicated. Blood specimen (specimen) 10/26/2017 6:21 AM CDT 10/26/2017 6:21 AM CDT Narrative [facility] - 10/26/2017 6:24 AM CDT Rachna Burt MD POINT OF CARE TEST ORDERABLES Final Result Performing Organization Address [facility] de Phone Number [facility] [address] Department [place] [address] * eGFR (10/26/2017 4:03 AM CDT) [facility] eGFR 88 mL/min/1.7 3 m2 [facility] Comment: Interpretive Data Reference Interval Normal ?>/= 90 mL/min/1.73m2 Mildly decreased* ? 60 - 89 mL/min/1.73m2 Mildly to moderately decreased ?45 - 59 mL/min/1.73m2 Moderately to severely decreased ??30 - 44 mL/min/1.73m2 Severely decreased ?15 - 29 mL/min/1.73m2 Kidney Failure ?< 15 ??mL/min/1.73m2 *Relative to young adult level If -[place] Citizen multiply value by 1.16. Estimated glomerular filtration [...] AM CDT 10/26/2017 4:21 AM CDT Narrative [facility] - 10/26/2017 4:48 AM CDT us Rachna Burt MD LAB BLOOD ORDERABLES Final Re sult [facility] [address] Department [place] [address] * (ABNORMAL) Differential, auto (10/26/2017 4:03 AM CDT) Neutrophil abs 7.7(H) 1.7 - 6.5 K/cumm [facility] Imm gran abs 0.1 0.0 - 0.1 K/cumm [facility] Lymphocyte abs 0.6(L) 0.8 - 3.3 K/cumm [facility] Monocyte abs 0.8 0.2 - 0.8 K/cumm [facility] Eosinophil abs 0.1 0.0 - 0.5 K/cumm [facility] Basophil abs 0.0 0.0 - 0.1 K/cumm [facility] Neutrophil pct 83.1 % [facility] Comment: Interpretive Data Percent cell count reference ranges are not reported, since discordance with absolute values may lead to misinterpretation of CBC data. Current Interpretive Data was last revised on 2017. Imm gran pct 1.1 % [facility] Comment: Interpretive Data Percent cell count reference ranges are not reported, since discordance with absolute values may lead to misinterpretation of CBC data. Current Interpretive Data was last revised on 2017. Lymphocyte pct 6.2 % [facility] Comment: Interpretive Data Percent cell count reference ranges are not reported, since discordance with absolute values may lead to misinterpretation of CBC data. Current Interpretive Data was last revised on 2017. Monocyte pct 8.6 % [facility] Comment: Interpretive Data Percent cell count reference ranges are not reported, since discordance with absolute values may lead to misinterpretation of CBC data. Current Interpretive Data was last revised on 2017. Eosinophil pct 1.0 % [facility] Comment: Interpretive Data Percent cell count reference ranges are not reported, since discordance with absolute values may lead to misinterpretation of CBC data. Current Interpretive Data was last revised on 2017. Basophil pct 0.0 % [facility] Comment: Interpretive Data Percent cell count reference ranges are not reported, since discordance with absolute values may lead to misinterpretation of CBC data. Current Interpretive Data was last revised on 2017. Blood specimen (specimen) 10/26/2017 4:03 AM CDT 10/26/2017 4:21 AM CDT Narrative [facility] - 10/26/2017 4:31 AM CDT us Adam Pastor MD LAB BLOOD ORDERABLES Final Re sult [facility] [address] Department [place] [address] * (ABNORMAL) Comprehensive metabolic panel (10/26/2017 4:03 AM CDT) Sodium 136 135 - 145 mmol/L [facility] Potassium, pl 4.6 3.3 - 4.9 mmol/L [facility] CO2 26 22 - 32 mmol/L [facility] BUN 20 8 - 25 mg/dL [facility] Glucose 89 70 - 199 mg/dL [facility] Comment: Interpretive Data Fasting glucose >/= 126 [...] 2017. Creatinine 0.88 0.80 - 1.30 mg/dL [facility] Calcium 9.0 8.5 - 10.3 mg/dL [facility] Chloride 99 97 - 110 mmol/L [facility] Albumin 3.1(L) 3.5 - 5.0 g/dL [facility] AST 29 10 - 50 Units/L [facility] ALT 65(H) 7 - 55 Units/L [facility] Alk phos 114 40 - 130 Units/L [facility] Bilirubin, total 0.5 0.1 - 1.2 mg/dL [facility] Protein, pl 5.4(L) 6.5 - 8.5 g/dL [facility] Anion gap 11 2 - 15 mmol/L [facility] Blood specimen (specimen) 10/26/2017 4:03 AM CDT 10/26/2017 4:21 AM CDT Narrative [facility] - 10/26/2017 4:48 AM CDT us Rachna Burt MD LAB BLOOD ORDERABLES Final Re sult [facility] [address] Department [place] [address] * (ABNORMAL) Vitamin D 25 hydroxy (10/26/2017 4:03 AM CDT) Vitamin D 25-OH 18(L) 30 - 80 ng/mL [facility] Blood specimen (specimen) 10/26/2017 4:03 AM CDT 10/26/2017 4:21 AM CDT Narrative [facility] - 10/26/2017 6:54 AM CDT us Adam Pastor MD LAB BLOOD ORDERABLES Final Re sult Performing Organization Address [facility] [[email or web address]] Co de Phone Number [facility] [address] [facility] [employer] [place] [address] * Phosphorus (10/26/2017 4:03 AM CDT) [facility] Phosphorus, pl 2.9 2.3 - 4.5 mg/dL [facility] Blood specimen (specimen) 10/26/2017 4:03 AM CDT 10/26/2017 4:21 AM CDT Narrative [facility] - 10/26/2017 4:48 AM CDT us Adam Pastor MD LAB BLOOD ORDERABLES Final Re sult Performing Organization Address [facility] [[email or web address]] Co de Phone Number [facility] [address] [facility] [employer] [place] [address] * Magnesium (10/26/2017 4:03 AM CDT) [facility] Magnesium 1.63 1.40 - 2.50 mg/dL [facility] Blood specimen (specimen) 10/26/2017 4:03 AM CDT 10/26/2017 4:21 AM CDT Narrative [facility] - 10/26/2017 4:48 AM CDT us Adam Pastor MD LAB BLOOD ORDERABLES Final Re sult Performing Organization Address [facility] [[email or web address]] Co de Phone Number [facility] [address] Department [employer] [place] [address] * (ABNORMAL) CBC with auto differential (10/26/2017 4:03 AM CDT) [facility] WBC 9.2 3.8 - 9.9 K/cumm [facility] RBC 3.28(L) 4.30 - 5.80 M/cumm [facility] Hgb 9.5(L) 13.0 - 17.5 g/dL [facility] Hct 31.1(L) 38.9 - 50.3 % [facility] MCV 94.8 81.3 - 96.4 fL [facility] MCH 29.0 27.1 - 33.3 pg [facility] MCHC 30.5(L) 32.3 - 35.7 g/dL [facility] RDW CV 18.1(H) 11.1 - 14.9 % [facility] RDW SD 63.0(H) 35.7 - 48.1 fL [facility] Plt 152 150 - 400 K/cumm [facility] MPV 12.3 9.1 - 12.3 fL [facility] NRBC abs 0.00 0.00 - 0.01 K/cumm [facility] Blood specimen (specimen) 10/26/2017 4:03 AM CDT 10/26/2017 4:21 AM CDT Narrative [facility] - 10/26/2017 4:31 AM CDT us Adam Pastor MD LAB BLOOD ORDERABLES Final Re sult Performing Organization Address [facility]/ZIP Co de Phone Number [facility] [address] Department [employer] [place], [place] [id number] * Glucose POC (10/25/2017 10:00 PM CDT) [facility] Glucose, POC 137 70 - 140 mg/dL [facility] Comment: For Glucose values <35 mg/dl when Hematocrit is >60 mg/dl,the test may not accurately detect significant hypoglycemia,and testing in the Laboratory should be considered if clinically indicated. Blood specimen (specimen) 10/25/2017 10:00 PM CDT 10/25/2017 10:00 PM CDT [facility]arrative [facility] - 10/25/2017 10:01 PM CDT us Rachna Burt MD POINT OF CARE TEST ORDERABLES Final Result Performing Organization Address [facility]/ZIP Co de Phone Number [facility] [address] Department of [employer] [place] [address] * Glucose POC (10/25/2017 4:25 PM CDT) Glucose, POC 95 70 - 140 mg/dL [facility] Comment: For Glucose values <35 mg/dl when Hematocrit is >60 mg/dl,the test may not accurately detect significant hypoglycemia,and testing in the Laboratory should be considered if clinically indicated. Blood specimen (specimen) 10/25/2017 4:25 PM CDT 10/25/2017 4:25 PM CDT [facility] - 10/25/2017 4:36 PM CDT Rachna Burt MD POINT OF CARE TEST ORDERABLES Final Result Performing Organization Address [facility] [[email or web address]] Co de Phone Number [facility] [address] [facility] [employer] [place] [address] * Glucose POC (10/25/2017 12:04 PM CDT) Glucose, POC 88 70 - 140 mg/dL [facility] Comment: For Glucose values <35 mg/dl when Hematocrit is >60 mg/dl,the test may not accurately detect significant hypoglycemia,and testing in the Laboratory should be considered if clinically indicated. Blood specimen (specimen) 10/25/2017 12:04 PM CDT 10/25/2017 12:04 PM CDT Narrative [facility] - 10/25/2017 12:08 PM CDT Rachna Burt MD POINT OF CARE TEST ORDERABLES Final Result Performing Organization Address [facility] [[email or web address]] Co de Phone Number [facility] [address] [facility] [employer] [place] [address] * Glucose POC (10/25/2017 6:07 AM CDT) Glucose, POC 87 70 - 140 mg/dL [facility] Comment: For Glucose values <35 mg/dl when Hematocrit is >60 mg/dl,the test may not accurately detect significant hypoglycemia,and testing in the Laboratory should be considered if clinically indicated. Blood specimen (specimen) 10/25/2017 6:07 AM CDT 10/25/2017 6:07 AM CDT Narrative [facility] - 10/25/2017 6:08 AM CDT us Rachna Burt MD POINT OF CARE TEST ORDERABLES Final Result [facility] [address] Department [place] [address] * eGFR (10/25/2017 5:40 AM CDT) eGFR 87 mL/min/1.7 3 m2 [facility] Comment: Interpretive Data Reference Interval Normal ?>/= 90 mL/min/1.73m2 Mildly decreased* ? 60 - 89 mL/min/1.73m2 Mildly to moderately decreased ?45 - 59 mL/min/1.73m2 Moderately to severely decreased ??30 - 44 mL/min/1.73m2 Severely decreased ?15 - 29 mL/min/1.73m2 Kidney Failure ?< 15 ??mL/min/1.73m2 *Relative to young adult level If -[place] Citizen multiply value by 1.16. Estimated glomerular filtration [...] AM CDT 10/25/2017 6:05 AM CDT Narrative [facility] - 10/25/2017 6:31 AM CDT us Rachna Burt MD LAB BLOOD ORDERABLES Final Re sult [facility] [address] Department [place] [address] * (ABNORMAL) Differential, auto (10/25/2017 5:40 AM CDT) Neutrophil abs 6.6(H) 1.7 - 6.5 K/cumm [facility] Imm gran abs 0.1 0.0 - 0.1 K/cumm [facility] Lymphocyte abs 0.6(L) 0.8 - 3.3 K/cumm [facility] Monocyte abs 0.7 0.2 - 0.8 K/cumm [facility] Eosinophil abs 0.0 0.0 - 0.5 K/cumm [facility] Basophil abs 0.0 0.0 - 0.1 K/cumm [facility] Neutrophil pct 82.6 % [facility] Comment: Interpretive Data Percent cell count reference ranges are not reported, since discordance with absolute values may lead to misinterpretation of CBC data. Current Interpretive Data was last revised on 2017. Imm gran pct 1.0 % [facility] Comment: Interpretive Data Percent cell count reference ranges are not reported, since discordance with absolute values may lead to misinterpretation of CBC data. Current Interpretive Data was last revised on 2017. Lymphocyte pct 7.0 % [facility] Comment: Interpretive Data Percent cell count reference ranges are not reported, since discordance with absolute values may lead to misinterpretation of CBC data. Current Interpretive Data was last revised on 2017. Monocyte pct 8.7 % [facility] Comment: Interpretive Data Percent cell count reference ranges are not reported, since discordance with absolute values may lead to misinterpretation of CBC data. Current Interpretive Data was last revised on 2017. Eosinophil pct 0.6 % [facility] Comment: Interpretive Data Percent cell count reference ranges are not reported, since discordance with absolute values may lead to misinterpretation of CBC data. Current Interpretive Data was last revised on 2017. Basophil pct 0.1 % [facility] Comment: Interpretive Data Percent cell count reference ranges are not reported, since discordance with absolute values may lead to misinterpretation of CBC data. Current Interpretive Data was last revised on 2017. Blood specimen (specimen) 10/25/2017 5:40 AM CDT 10/25/2017 6:05 AM CDT Narrative [facility] - 10/25/2017 6:14 AM CDT us Rachna Burt MD LAB BLOOD ORDERABLES Final Re sult [facility] [address] Department [place] [address] * (ABNORMAL) Comprehensive metabolic panel (10/25/2017 5:40 AM CDT) Sodium 139 135 - 145 mmol/L [facility] Potassium, pl 4.7 3.3 - 4.9 mmol/L [facility] CO2 30 22 - 32 mmol/L [facility] BUN 24 8 - 25 mg/dL [facility] Glucose 82 70 - 199 mg/dL [facility] Comment: Interpretive Data Fasting glucose >/= 126 [...] 2017. Creatinine 0.90 0.80 - 1.30 mg/dL [facility] Calcium 8.5 8.5 - 10.3 mg/dL [facility] Chloride 99 97 - 110 mmol/L [facility] Albumin 3.0(L) 3.5 - 5.0 g/dL [facility] AST 30 10 - 50 Units/L [facility] ALT 72(H) 7 - 55 Units/L [facility] Alk phos 123 40 - 130 Units/L [facility] Bilirubin, total 0.5 0.1 - 1.2 mg/dL [facility] Protein, pl 5.0(L) 6.5 - 8.5 g/dL [facility] Anion gap 10 2 - 15 mmol/L [facility] Blood specimen (specimen) 10/25/2017 5:40 AM CDT 10/25/2017 6:05 AM CDT Narrative [facility] - 10/25/2017 6:31 AM CDT us Rachna Burt MD LAB BLOOD ORDERABLES Final Re sult [facility] [address] Department [place] [address] * (ABNORMAL) CBC with auto differential (10/25/2017 5:40 AM CDT) WBC 8.0 3.8 - 9.9 K/cumm [facility] RBC 3.13(L) 4.30 - 5.80 M/cumm [facility] Hgb 9.1(L) 13.0 - 17.5 g/dL [facility] Hct 30.3(L) 38.9 - 50.3 % [facility] MCV 96.8(H) 81.3 - 96.4 fL [facility] MCH 29.1 27.1 - 33.3 pg [facility] MCHC 30.0(L) 32.3 - 35.7 g/dL [facility] RDW CV 17.9(H) 11.1 - 14.9 % [facility] RDW SD 64.8(H) 35.7 - 48.1 fL [facility] Plt 155 150 - 400 K/cumm [facility] MPV 12.2 9.1 - 12.3 fL [facility] NRBC abs 0.00 0.00 - 0.01 K/cumm [facility] Blood specimen (specimen) 10/25/2017 5:40 AM CDT 10/25/2017 6:05 AM CDT Narrative [facility] - 10/25/2017 6:14 AM CDT Rachna Burt MD LAB BLOOD ORDERABLES Final Re sult Performing Organization Address [facility]/ZIP Co de Phone Number [facility] [address] Department [place] [address] * Glucose POC (10/24/2017 10:34 PM CDT) [facility] Glucose, POC 125 70 - 140 mg/dL [facility] Comment: For Glucose values <35 mg/dl when Hematocrit is >60 mg/dl,the test may not accurately detect significant hypoglycemia,and testing in the Laboratory should be considered if clinically indicated. Blood specimen (specimen) 10/24/2017 10:34 PM CDT 10/24/2017 10:34 PM CDT Ken [facility] - 10/24/2017 10:35 PM CDT Rachna Burt MD POINT OF CARE TEST ORDERABLES Final Result Performing Organization Address [facility] [[email or web address]] Co de Phone Number [facility] [address] Department [place] [address] documented in this encounter Visit Diagnoses Diagnosis [...] puff 1 puff, inhalation, 2 times daily (respiratory physician), First dose (after last modification) on Tue10/24/17 [...] juice (4 fluid ounces) NOT ORANGE JUICE TRIMMER HAND STATES GLUTOSE-15 CONTAINS GLUCOSE 40% W/W (50% [...] mL 3 mL, nebulization, 4 times daily (respiratory physician), First dose on Tue10/25/17 at 1100, Indications: Chronic Obstructive Pulmonary Disease with BronchospasmsIndications:Chronic Obstructive Pulmonary Disease with Bronchospasms Given 10/29/2017 6:35 AM CDT 3 mL Given by Other 10/28/2017 7:41 PM CDT 3 mL Given 10/28/2017 9:12 AM CDT 3 mL ipratropium-albuterol (DUO-NEB) 0.5-2.5 mg/3 mL nebulizer solution 3 mL 3 mL, nebulization, Every 4 hours PRN (respiratory physician), wheezing, shortness of breath, Starting on Tue10/29/17 [...] Provider: Neena Jackson RN)194 (Given - Provider: Yesneia Chadwick RN) 0842 (Given - Provider: Eunice [...] puff 1 puff, inhalation, 2 times daily (respiratory physician), First dose (after last modification) on Tue10/24/17 at 2145, Rinse mouth with water after use to reduce aftertaste and incidence of candidiasis. Do not swallow. 0708 (Given - Provider: Germaine Fountain, SURGICAL GARMENT ASSEMBLY SUPERVISOR)1925 (Given - Provider: Loretta Quezada SURGICAL GARMENT ASSEMBLY SUPERVISOR) 0824 (Given - Provider: Toshia King, SURGICAL GARMENT ASSEMBLY SUPERVISOR)2024 (Given - Provider: Kaycee Fortune, VISHNU) 0927 [...] juice (4 fluid ounces) NOT ORANGE JUICE TRIMMER HAND STATES GLUTOSE-15 CONTAINS GLUCOSE 40% W/W (50% [...] 3 mL, nebulization, Every 4 hours PRN (respiratory physician), wheezing, shortness of breath, Starting on 10/29/17 [...] documented as of this encounter Care Teams Reshipping Clerk Relationship Specialty Start Date End Date Briana Medeiros MD [address] [place] [address] PCP - General 07/06/12 03/24/22 documented as of this encounter
--- OUTSIDE RECORDS SUMMARY | 2024-05-25 02:52 | XMS_ITS | Encounter Summary ---
Author Organization [facility] Healthcare Address [address] [place] [address] Care Team Providers Care Museum Curator Name Role Phone Briana Medeiros MD Primary Care Provider [phone] Encounter Details Date Type Department Care Team (Latest Contact Info) Description 10/11/2017 9:59 AM CDT - 10/11/2017 11:59 PM CDT Hospital Encounter [facility] - Imaging [address] [place] [address] Sudeep Choi MD [address] [facility] [address] [place] [address] Discharge Disposition: Discharge to home or self care Social History Tobacco Use Types Packs/Day Years Used Date Smoking Tobacco: Never Assessed Alcohol Use Standard Drinks/Week Comments No 0 (1 standard drink = 0.6 oz pur e alcohol) Sex and Gender Information Value Date Recorded Sex Assigned at Not on file 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
--- OUTSIDE RECORDS SUMMARY | 2024-05-25 02:52 | XMS_ITS | Encounter Summary ---
Author Organization [facility] Healthcare Address [address] [place] [address] Care Team Providers Care Pigskin Trimmer Name Role Phone Birana Medeiros MD Primary Care Provider [phone] Encounter Details Date Type Department Care Team (Latest Contact Info) Description 10/08/2017 9:14 AM CDT - 10/08/2017 11:59 PM CDT Hospital Encounter [facility] - Imaging [address] [place] [address] Discharge Disposition: Discharge to home or self care Social History Tobacco Use Types Packs/Day Years Used Date Smoking Tobacco: Never Assessed Alcohol Use Standard Drinks/Week Comments No 0 (1 standard drink = 0.6 oz pur e alcohol) Sex and Gender Information Value Date Recorded Sex Assigned at Not on file 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
--- OUTSIDE RECORDS SUMMARY | 2024-05-25 02:52 | XMS_ITS | Encounter Summary ---
Author Organization [facility] Healthcare Address [address] [place] [address] Care Team Providers Care Jack Machine Operator Name Role Phone Briana Medeiros MD Primary Care Provider [phone] Encounter Details Date Type Department Care Team (Latest Contact Info) Description 09/24/2017 11:09 AM CDT - 09/24/2017 11:53 AM CDT Hospital Encounter [facility] - Imaging [address] [place] [address] Александр Espino Jr., MD [address] [facility] [address] [place], [place] [id number] Discharge Disposition: Discharge to home or self care Social History Tobacco Use Types Packs/Day Years Used Date Smoking Tobacco: Never Assessed Alcohol Use Standard Drinks/Week Comments No 0 (1 standard drink = 0.6 oz pur e alcohol) Sex and Gender Information Value Date Recorded Sex Assigned at Not on file 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
--- OUTSIDE RECORDS SUMMARY | 2024-05-25 02:57 | XMS_ITS | Referral Summary ---
Author Organization [facility] Address [address] [facility] [place] [address] Care Team Providers Care Television Repairman Name Role Phone FunkRoseth Dylan EMERSON Primary Care Provider [phone]- [phone] Source Comments [facility],non-owned Affiliates and Associated Physician Practices is amultiple site organization consisting of ambulatory clinics and hospital sitesin [place], [place], [place] and [place]. This disclosure is being madepursuant to the Care Everywhere program and may not contain all information available regarding this patient. Last updated 18.[facility] Encounters Date Type Department Care Team Description 05/15/2024 Travel 05/15/2024 Orders Only [facility] - Orthopedic Surgery [address] [place] [address] [phone] Larry Alexander MD Left knee pain, unspecified chronicity 05/15/2024 12:59 PM TEMPLATE CHECKER - 05/15/2024 11:59 PM TEMPLATE CHECKER Hospital Encounter [facility] - Orthopedics [address] [place] [address], [address] [place] [phone] Larry Alexander MD Discharge Disposition: Home or Self Care 05/15/2024 1:15 PM TEMPLATE CHECKER Office Visit [facility] - Orthopedic Surgery [address] [place] [address] [phone] Larry Alexander MD Primary osteoarthritis of left knee (Primary Dx) 04/02/2024 10:22 AM CDT - 04/02/2024 10:59 AM CDT Hospital Encounter [facility] OP DRAW STATION [address] [place] [address] Twin Miller MD Discharge Disposition: Home or Self Care 04/02/2024 11:00 AM CDT - 04/02/2024 11:59 PM T Hospital Encounter [facility] [address] [place] [address] Twin Miller MD Discharge Disposition: Home or Self Care 03/15/2024 Travel 03/05/2024 Travel from Last 3 Months Allergies Active Allergy Reactions Criticality Noted Date Comments Peppers GI Discomfort 10/20/2021 Green and red peppers Levofloxacin Eye Itching 04/24/2019 red around the eyes , puffy, itchy Penicillins Skin Reactions,Swelling Medium 07/14/2017 Scopolamine Other,KITCHEN AND BATH DESIGNER Dysfunction 02/07/2019 delirium Tobramycin Eye Itching 10/23/2019 [...] fluticasone propionate (Flonase) 50 MCG/ACT nasal spray [place] 1 (one) spray into each nostril once [...] Recorded Patient Health Questionnaire-2 Score 1 05/15/2024 [facility] - Occupational [...] place to sleep or slept in a half-way (including now)? No 10/14/2023 Sex and Gender [...] st Contact Info) Description 07/09/2024 12:30 PM TEMPLATE CHECKER Office Visit [facility] - GI [address] [facility], [place] [address] Twin Miller MD [facility] [address] OF [place] [address] 09/19/2024 2:00 PM CDT Office Visit [facility] - Orthopedic Surgery [address] [facility] [place] [phone] Larry Alexander MD [address] [facility] [address] [place] [address] Goals Goal Patient Goal Type Associated Problems [...] you. Interventions: Medical Devices Implanted Type Area Filter Press Operator Device Identifier Shelf Expiration Date Model / Serial / Lot Trident 10 Deg X 3 Insert 36mm Id Implanted:Qty: 1 on 02/08/2019 by Larry Alexander MD at [facility] Hip [employer] 06/23/2021 623-100 [id number] / / [id number] Description:36MM POLYETHYLEN E INSERT C-Taper Cocr Lfit Head 36mm/0 Implanted:Qty: 1 on 02/08/2019 by Larry Alexander MD at [facility] Hip [employer] 02/12/2023 06-3600 / / [id number] Description:LEFT FEMORAL HEA D 36MM Procedures Procedure Name Priority Date/Time Associated Diagnosis Comments [place] DRAIN/INJECT LARGE JOINT/BURSA Routine 05/15/2024 1:52 PM TEMPLATE CHECKER Primary osteoarthritis of left knee XR KNEE LEFT 3VW Routine 05/15/2024 1:22 PM TEMPLATE CHECKER Left knee pain, unspecified chronicity US ABDOMEN [...] HEPATITIS C ANTIBODY Routine 07/14/2017 10:11 PM TEMPLATE CHECKER from Last 3 Months or Most Recently Relevant to Health Maintenance Results * AK DRAIN/INJECT LARGE JOINT/BURSA (05/15/2024 1:52 PM TEMPLATE CHECKER) Narrative Larry Alexander MD - 05/15/2024 1:52 PM TEMPLATE CHECKER Larry Alexander MD ? 05/15/2024 ??4:48 PM Orthopaedic Surgery Procedure Note Mason Keys [id number] Diagnosis: Left knee pain Procedure: Injection of [...] XR Knee Left 3Vw (05/15/2024 1:22 PM TEMPLATE CHECKER) Anatomical Region Laterality Modality Lower Extremity Radiographic Shama ging 05/15/2024 1:51 PM TEMPLATE CHECKER Narrative 05/15/2024 1:51 PM TEMPLATE CHECKER Procedure: XR KNEE LEFT 3VW ??Exam Date: ??05/15/2024 1:23 PM ?? Location: ??[facility] Indication: M25.562: Pain in left knee Findings/impression: [...] LEFT 3VW Exam Date: 05/15/2024 1:23 PM Location:[facility] Indication: M25.562: Pain in left knee Findings/impression: [...] DATE/TIME OF EXAM: ??04/02/2024 12:19 PM, LOCATION ??[facility] INDICATION: K75.81: Liver cirrhosis secondary to RAYGOZA [...] DATE/TIME OF EXAM: 04/02/2024 12:19 PM, LOCATION [facility] INDICATION: K75.81: Liver cirrhosis secondary to RAYGOZA [...] [facility] (04/02/2024 11:08 AM CDT) PT 17.9(H) 12.1 - 14.8 Seconds 04/02/2024 12:13 PM CDT [facility] INR 1.5 See Comment 04/02/2024 12:13 PM CDT [facility] Comment:The suggested therap eutic range for standard coumadin (warfarin) therapy is an INR of 2.0-3.0. For high-risk patients (Mechanical Mitral Valve Prosthesis, etc.), the suggested prophylactic therapeutic range is an INR of 2.5-3.5. Blood BLOOD SPECIMEN / Unknown Lab Venipuncture / Unknown 04/02/2024 11:08 AM CDT 04/02/2024 11:14 AM CDT Twin Miller MD LAB - COAGULAT ION ORDERABLES [facility] [address] [place] [phone], [facility] [phone] * ALPHA FETOPROTEIN BLOOD TUMOR MARKER (04/02/2024 11:08 AM CDT) [facility] Alpha-Fetoprote in Tumor Marker <2.0 <=8.3 ng/mL 04/02/2024 12:37 PM [facility] Comment: AFP values will vary depending on testing procedure used. Results are not comparable across different methods. AFP values obtained by [facility] using an Farias Alinity Immunoassay. Blood BLOOD SPECIMEN / Unknown Lab Venipuncture / Unknown 04/02/2024 11:08 AM CDT 04/02/2024 11:46 AM CDT Twin Miller MD LAB - CHEMISTR Y ORDERABLES [address] [address], [facility] [phone] * (ABNORMAL) CBC WITH DIFFERENTIAL (04/02/2024 11:08 AM CDT) [facility] WBC 6.7 4.0 - 10.7 x10E9/L 04/02/2024 1:27 PM [facility] RBC Count 3.48(L) 4.30 - 5.80 x10E12/L 04/02/2024 1:27 PM [facility] Hemoglobin 10.1(L) 13.3 - 17.5 g/dL 04/02/2024 1:27 PM [facility] Hematocrit 33.6(L) 38.7 - 51.1 % 04/02/2024 1:27 PM [facility] MCV 96.6 80.0 - 98.0 fL 04/02/2024 1:27 PM [facility] MCH 29.0 26.7 - 33.6 pg 04/02/2024 1:27 PM [facility] MCHC 30.1(L) 31.7 - 36.3 g/dL 04/02/2024 1:27 PM [facility] RDW-CV 15.7(H) 11.3 - 14.8 % 04/02/2024 1:27 PM [facility] Platelet Count 120(L) 150 - 420 x10E9/L 04/02/2024 1:27 PM [facility] MPV 04/02/2024 1:27 PM [facility] Comment:Unable to report Neutrophil % 67.8 41.0 - 74.0 % 04/02/2024 1:27 PM [facility] Lymphocyte % 12.7(L) 17.0 - 47.0 % 04/02/2024 1:27 PM [facility] Monocyte % 13.0(H) 3.0 - 11.0 % 04/02/2024 1:27 PM [facility] Eosinophil % 5.7 0.0 - 7.0 % 04/02/2024 1:27 PM [facility] Basophil % 0.7 0.0 - 1.6 % 04/02/2024 1:27 PM [facility] Immature Granulocytes % 0.1 0.0 - 1.0 % 04/02/2024 1:27 PM [facility] Neutrophil Absolute 4.51 1.60 - 7.50 x10E9/L 04/02/2024 1:27 PM [facility] Lymphocyte Absolute 0.85(L) 1.00 - 4.40 x10E9/L 04/02/2024 1:27 PM [facility] Monocyte Absolute 0.87 0.15 - 1.00 x10E9/L 04/02/2024 1:27 PM [facility] Eosinophil Absolute 0.38 0.00 - 0.60 x10E9/L 04/02/2024 1:27 PM [facility] Basophil Absolute 0.05 0.00 - 0.13 x10E9/L 04/02/2024 1:27 PM [facility] Blood BLOOD SPECIMEN / Unknown Lab Venipuncture / Unknown 04/02/2024 11:08 AM CDT 04/02/2024 11:46 AM T Twin Miller MD LAB - HEMATOLO GY ORDERABLES [facility] [address] [place] [address], [facility] [phone] * (ABNORMAL) COMPREHENSIVE METABOLIC PANEL (04/02/2024 11:08 AM [facility]) BUN 30(H) 7 - 26 mg/dL 04/02/2024 12:13 PM [facility] Creatinine 1.87(H) 0.71 - 1.16 mg/dL 04/02/2024 12:13 PM [facility] Sodium 145 136 - 145 mmol/L 04/02/2024 12:13 PM [facility] Potassium 3.8 3.5 - 4.5 mmol/L 04/02/2024 12:13 PM [facility] Chloride 105 98 - 107 mmol/L 04/02/2024 12:13 PM [facility] CO2 30(H) 22 - 29 mmol/L 04/02/2024 12:13 PM [facility] Glucose 106(H) 70 - 99 mg/dL 04/02/2024 12:13 PM [facility] Calcium 9.6 8.4 - 10.2 mg/dL 04/02/2024 12:13 PM [facility] Protein Total 6.8 6.0 - 8.3 g/dL 04/02/2024 12:13 PM [facility] Albumin 3.5 3.4 - 5.0 g/dL 04/02/2024 12:13 PM [facility] Bilirubin Total 0.5 0.2 - 1.2 mg/dL 04/02/2024 12:13 PM [facility] Alkaline Phosphatase 95 40 - 150 U/L 04/02/2024 12:13 PM [facility] ALT 14 5 - 55 U/L 04/02/2024 12:13 PM [facility] AST 22 5 - 34 U/L 04/02/2024 12:13 PM [facility] Anion Gap 10 6 - 16 04/02/2024 12:13 PM [facility] BUN/Creatinine Ratio 16 7 - 23 04/02/2024 12:13 PM [facility] Osmolality Calculated 307(H) 275 - 295 mOsm/kg 04/02/2024 12:13 PM [facility] Albumin/Globulin Ratio 1.1 1.1 - 2.3 04/02/2024 12:13 PM CDT [facility] eGFR by CKD-EPI 37(L) >=90 mL/min/1.7 3 m2 04/02/2024 12:13 PM CDT [facility] Blood BLOOD SPECIMEN / Unknown Lab Venipuncture / Unknown 04/02/2024 11:08 AM CDT 04/02/2024 11:46 AM CDT Twin Miller MD LAB - CHEMISTR Y ORDERABLES [facility] [address] [place] [address], [facility] [phone] * HEPATITIS C ANTIBODY (07/14/2017 10:11 PM TEMPLATE CHECKER) Pathologist [facility] Hepatitis C Antibody [facility]react [facility] Comment: Hepatitis C Antibody screen indicates no serologic evidence of past or current infection with Hepatitis C Virus. Patients with unexplained liver disease who are immunocompromised or suspected of having acute Hepatitis C infection may benefit from Nucleic Acid Test (SUNIL) for Hepatitis C Viral RNA to confirm Hepatitis C status. Blood specimen (specimen) BLOOD SPECIMEN / Unknown 07/14/2017 10:11 PM TEMPLATE CHECKER 07/14/2017 10:25 PM TEMPLATE CHECKER Angela Corona MD LAB - CHEMISTRY ROYCE KLINE [facility] [address] [phone] from Last 3 Months or Most Recently [...] 2:01 PM 09/09/2017 2:08 PM Care Teams Television Repairman Relationship Specialty Start Date End Date Cleo Funk DO [address] [place] [address] PCP - General Family Medicine 05/15/24
--- OUTSIDE RECORDS SUMMARY | 2024-05-25 02:57 | XMS_ITS | Clinical Summary ---
Author Organization [facility] Address [address] [facility] [place] [address] Care Team Providers Care Greens Or Grounds Superintendent Name Role Phone Cleo Funk DO Primary Care Provider +1- [phone] Source Comments [facility],non-owned Affiliates and Associated Physician Practices is amultiple site organization consisting of ambulatory clinics and hospital sitesin [place], [place], [place] and [place]. This disclosure is being madepursuant to the Care Everywhere program and may not contain all information available regarding this patient. 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 ORDER CLERK Dysfunction 02/07/2019 delirium Tobramycin Eye Itching 10/23/2019 [...] fluticasone propionate (Flonase) 50 MCG/ACT nasal spray [place] 1 (one) spray into each nostril once [...] Department Care Team Description 05/15/2024 1:15 PM SALES REPRESENTATIVE PRINTING Office Visit [facility] - Orthopedic Surgery [address] [place] [phone] Larry Alexander MD Primary osteoarthritis of left knee (Primary Dx) 05/15/2024 12:59 PM SALES REPRESENTATIVE PRINTING - 05/15/2024 11:59 PM SALES REPRESENTATIVE PRINTING Hospital Encounter [facility] - Orthopedics [address] [place] [address], [address] [place] [address] Larry Alexander MD Discharge Disposition: Home or Self Care 05/15/2024 Travel 05/15/2024 Orders Only [facility] - [facility]opedic Surgery [address] [place] [phone] Larry Alexander MD Left knee pain, unspecified chronicity 04/02/2024 11:00 AM CDT - 04/02/2024 11:59 PM CDT Hospital Encounter [facility] [address] [place] [address] Twin Miller MD Discharge Disposition: Home or Self Care 04/02/2024 10:22 AM CDT - 04/02/2024 10:59 AM CDT Hospital Encounter [facility] LAB OP DRAW STATION [address] [place] [phone] Twin Miller MD Discharge Disposition: Home or [...] Recorded Patient Health Questionnaire-2 Score 1 05/15/2024 [facility] [place] [facility] - Occupational Stress [...] place to sleep or slept in a group home (including now)? No 10/14/2023 Sex and Gender [...] st Contact Info) Description 07/09/2024 12:30 PM SALES REPRESENTATIVE PRINTING Office Visit [facility] - GI [address] [facility] [place] [address] Twin Miller MD [address] [place] [address] OF [place]STR[place] [address] 09/19/2024 2:00 PM CDT Office Visit [facility] - Orthopedic Surgery [address] [place] [address] Larry Alexander MD [address] [facility] [address] [place] [address] Health Maintenance Due Date Last Done Comments [...] you. Interventions: Medical Devices Implanted Type Area Transformer Shop Supervisor Device Identifier Shelf Expiration Date Model / Serial / Lot Trident 10 Deg X 3 Insert 36mm Id Implanted:Qty: 1 on 02/08/2019 by Larry Alexander MD at [facility] Hip [place] [employer] 06/23/2021 623-100 36F / / [id number] Description:36MM POLYETHYLEN E INSERT C-Taper Cocr Lfit Head 36mm/0 Implanted:Qty: 1 on 02/08/2019 by Larry Alexander MD at [facility] Hip [place] [employer] 02/12/2023 06-3600 / / [id number] Description:LEFT FEMORAL HEA D 36MM Procedures Procedure Name Priority Date/Time Associated Diagnosis Comments NM DRAIN/INJECT LARGE JOINT/BURSA Routine 05/15/2024 1:52 PM SALES REPRESENTATIVE PRINTING Primary osteoarthritis of left knee XR KNEE LEFT 3VW Routine 05/15/2024 1:22 PM SALES REPRESENTATIVE PRINTING Left knee pain, unspecified chronicity US ABDOMEN LIMITED Routine 04/02/2024 12 :11 PM CDT 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) Cirrhosis of liver without ascites, unspecified hepatic cirrhosis type (HCC) Nonalcoholic steatohepatitis (RAYGOZA) Atrial fibrillation, unspecified type (HCC) Acute gastric ulcer with hemorrhage PT-INR [facility] Routine 04/02/2024 11:08 AM CDT Liver [...] HEPATITIS C ANTIBODY Routine 07/14/2017 10:11 PM SALES REPRESENTATIVE PRINTING from Last 3 Months or Most Recently Relevant to Health Maintenance Results * NM DRAIN/INJECT LARGE JOINT/BURSA (05/15/2024 1:52 PM SALES REPRESENTATIVE PRINTING) Narrative Larry Alexander MD - 05/15/2024 1:52 PM SALES REPRESENTATIVE PRINTING Larry Alexander MD ? 05/15/2024 ??4:48 PM Orthopaedic Surgery Procedure Note Mason Keys [id number] Diagnosis: Left knee pain Procedure: Injection of [...] XR Knee Left 3Vw (05/15/2024 1:22 PM SALES REPRESENTATIVE PRINTING) Anatomical Region Laterality Modality Lower Extremity Radiographic Shama ging 05/15/2024 1:51 PM SALES REPRESENTATIVE PRINTING Narrative 05/15/2024 1:51 PM SALES REPRESENTATIVE PRINTING Procedure: XR KNEE LEFT 3VW ??Exam Date: ??05/15/2024 1:23 PM ?? [facility] Indication: M25.562: Pain in left knee [...] LEFT 3VW Exam Date: 05/15/2024 1:23 PM Location:[facility] Indication: M25.562: Pain in left knee [...] DATE/TIME OF EXAM: ??04/02/2024 12:19 PM, LOCATION ??[facility] INDICATION: K75.81: Liver cirrhosis secondary to RAYGOZA [...] DATE/TIME OF EXAM: 04/02/2024 12:19 PM, LOCATION [facility] INDICATION: K75.81: Liver cirrhosis secondary to RAYGOZA [...] the gallbladder neck without pericholecystic fluid.. Sonographic Mraia's sign is negative. Ascites: No ascites is [...] Miller MD US ORDERABLES * (ABNORMAL) PT-INR [facility] (04/02/2024 11:08 AM CDT) Pathologist [facility] PT 17.9(H) 12.1 - 14.8 Seconds 04/02/2024 12:13 PM CDT [facility]ORATORY [facility] INR 1.5 See Comment 04/02/2024 12:13 PM CDT [facility] Comment:The suggested therap eutic range for standard coumadin (warfarin) therapy is an INR of 2.0-3.0. For high-risk patients (Mechanical Mitral Valve Prosthesis, etc.), the suggested prophylactic therapeutic range is an INR of 2.5-3.5. Blood BLOOD SPECIMEN / Unknown Lab Venipuncture / Unknown 04/02/2024 11:08 AM CDT 04/02/2024 11:14 AM CDT Twin Miller MD LAB - COAGULAT ION ORDERABLES Performing Organization Address City/[facility]/ZIP Co de Phone Number [address] [address], [place] [phone] * ALPHA FETOPROTEIN BLOOD TUMOR MARKER (04/02/2024 11:08 AM CDT) [facility] Alpha-Fetoprote in Tumor Marker <2.0 <=8.3 ng/mL 04/02/2024 12:37 PM CDT [facility] Comment: AFP values will vary depending on testing procedure used. Results are not comparable across different methods. AFP values obtained by [facility] using an Farias Alinity Immunoassay. Blood BLOOD SPECIMEN / Unknown Lab Venipuncture / Unknown 04/02/2024 11:08 AM CDT 04/02/2024 11:46 AM CDT Twin Miller MD LAB - CHEMISTR Y ORDERABLES Performing Organization Address City/[facility]/ZIP Co de Phone Number [address] [address], [place] [phone] * (ABNORMAL) CBC WITH DIFFERENTIAL (04/02/2024 11:08 AM CDT) [facility] Signature WBC 6.7 4.0 - 10.7 x10E9/L 04/02/2024 1:27 PM [facility] RBC Count 3.48(L) 4.30 - 5.80 x10E12/L 04/02/2024 1:27 PM [facility] Hemoglobin 10.1(L) 13.3 - 17.5 g/dL 04/02/2024 1:27 PM [facility] Hematocrit 33.6(L) 38.7 - 51.1 % 04/02/2024 1:27 PM [facility] MCV 96.6 80.0 - 98.0 fL 04/02/2024 1:27 PM [facility] MCH 29.0 26.7 - 33.6 pg 04/02/2024 1:27 PM [facility] MCHC 30.1(L) 31.7 - 36.3 g/dL 04/02/2024 1:27 PM [facility] RDW-CV 15.7(H) 11.3 - 14.8 % 04/02/2024 1:27 PM [facility] Platelet Count 120(L) 150 - 420 x10E9/L 04/02/2024 1:27 PM [facility] MPV 04/02/2024 1:27 PM [facility] Comment:Unable to report Neutrophil % 67.8 41.0 - 74.0 % 04/02/2024 1:27 PM [facility] Lymphocyte % 12.7(L) 17.0 - 47.0 % 04/02/2024 1:27 PM [facility] Monocyte % 13.0(H) 3.0 - 11.0 % 04/02/2024 1:27 PM [facility] Eosinophil % 5.7 0.0 - 7.0 % 04/02/2024 1:27 PM [facility] Basophil % 0.7 0.0 - 1.6 % 04/02/2024 1:27 PM [facility] Immature Granulocytes % 0.1 0.0 - 1.0 % 04/02/2024 1:27 PM [facility] Neutrophil Absolute 4.51 1.60 - 7.50 x10E9/L 04/02/2024 1:27 PM [facility] Lymphocyte Absolute 0.85(L) 1.00 - 4.40 x10E9/L 04/02/2024 1:27 PM [facility] Monocyte Absolute 0.87 0.15 - 1.00 x10E9/L 04/02/2024 1:27 PM [facility] Eosinophil Absolute 0.38 0.00 - 0.60 x10E9/L 04/02/2024 1:27 PM [facility] Basophil Absolute 0.05 0.00 - 0.13 x10E9/L 04/02/2024 1:27 PM [facility] Blood BLOOD SPECIMEN / Unknown Lab Venipuncture / Unknown 04/02/2024 11:08 AM CDT 04/02/2024 11:46 AM CDT Twin Miller MD LAB - HEMATOLO GY ORDERABLES [address] [address], [facility] [phone] * (ABNORMAL) COMPREHENSIVE METABOLIC PANEL (04/02/2024 11:08 AM CDT) BUN 30(H) 7 - 26 mg/dL 04/02/2024 12:13 PM [facility] Creatinine 1.87(H) 0.71 - 1.16 mg/dL 04/02/2024 12:13 PM [facility] Sodium 145 136 - 145 mmol/L 04/02/2024 12:13 PM [facility] Potassium 3.8 3.5 - 4.5 mmol/L 04/02/2024 12:13 PM [facility] Chloride 105 98 - 107 mmol/L 04/02/2024 12:13 PM [facility] CO2 30(H) 22 - 29 mmol/L 04/02/2024 12:13 PM [facility] Glucose 106(H) 70 - 99 mg/dL 04/02/2024 12:13 PM [facility] Calcium 9.6 8.4 - 10.2 mg/dL 04/02/2024 12:13 PM [facility] Protein Total 6.8 6.0 - 8.3 g/dL 04/02/2024 12:13 PM [facility] Albumin 3.5 3.4 - 5.0 g/dL 04/02/2024 12:13 PM [facility] Bilirubin Total 0.5 0.2 - 1.2 mg/dL 04/02/2024 12:13 PM [facility] Alkaline Phosphatase 95 40 - 150 U/L 04/02/2024 12:13 PM [facility] ALT 14 5 - 55 U/L 04/02/2024 12:13 PM [facility] AST 22 5 - 34 U/L 04/02/2024 12:13 PM [facility] Anion Gap 10 6 - 16 04/02/2024 12:13 PM [facility] BUN/Creatinine Ratio 16 7 - 23 04/02/2024 12:13 PM [facility] Osmolality Calculated 307(H) 275 - 295 mOsm/kg 04/02/2024 12:13 PM [facility] Albumin/Globulin Ratio 1.1 1.1 - 2.3 04/02/2024 12:13 PM [facility] eGFR by CKD-EPI 37(L) >=90 mL/min/1.7 3 m2 04/02/2024 12:13 PM [facility] Blood BLOOD SPECIMEN / Unknown Lab Venipuncture / Unknown 04/02/2024 11:08 AM CDT 04/02/2024 11:46 AM [facility] Twin Miller MD LAB - CHEMISTR Y ORDERABLES [facility] [address] [place] [address], [facility] [phone] * HEPATITIS C ANTIBODY (07/14/2017 10:11 PM SALES REPRESENTATIVE PRINTING) Hepatitis C Antibody Non-react marlee Non-reac tive [facility] Comment: Hepatitis C Antibody screen indicates no serologic evidence of past or current infection with Hepatitis C Virus. Patients with unexplained liver disease who are immunocompromised or suspected of having acute Hepatitis C infection may benefit from Nucleic Acid Test (SUNIL) for Hepatitis C Viral RNA to confirm Hepatitis C status. Blood specimen (specimen) BLOOD SPECIMEN / Unknown 07/14/2017 10:11 PM SALES REPRESENTATIVE PRINTING 07/14/2017 10:25 PM SALES REPRESENTATIVE PRINTING Angela Corona MD LAB - CHEMISTRY ROYCE KLINE [facility] Organization Address City/State/ZIP Co de Phone Number [address] [phone] from Last 3 Months or Most Recently [...] 2:01 PM 09/09/2017 2:08 PM Care Teams Greens Or Grounds Superintendent Relationship Specialty Start Date End Date Cleo Funk DO [address] [facility] [address] [place] [address] PCP - General Family Medicine 05/15/24
--- OUTSIDE RECORDS SUMMARY | 2024-05-25 02:58 | XMS_ITS | Encounter Summary ---
Author Organization [facility] Address [address] [place] [address] Care Team Providers Care Asphalt Coater Name Role Phone Napoleon Birmingham Primary Care [...] and heating? Not hard at all 10/14/2023 [facility] [place] of Occupat ional Health - Occupational Stress [...] st Contact Info) Description 07/09/2024 12:30 PM ENGRAVER APPRENTICE DECORATIVE Office Visit [facility] - [place] [address] [place] [address], [place] [phone] Twin Miller MD [address] [place] [address] [place] [address] 09/19/2024 2:00 PM CDT Office Visit [facility] - Orthopedic Surgery [facility] [place] [phone] Larry Alexander MD [address] [place] [address] documented as of this encounter Goals Goal [...] documented as of this encounter Care Teams Asphalt Coater Relationship Specialty Start Date End Date Napoleon Birmingham PCP - General 10/13/23 05/14/24 documented as of this encounter
--- OUTSIDE RECORDS SUMMARY | 2024-05-25 02:58 | XMS_ITS | Encounter Summary ---
Author Organization [facility] Address [address] [facility] [place] [address] Care Team Providers Care Archives Director Name Role Phone Cleo Funk DO Primary Care Provider +1- [phone] Encounter Details Date Type Department Care Team (Late st Contact Info) Description 05/15/2024 Orders Only [facility] - Orthopedic Surgery [address] [place] [phone] Larry Alexander MD [address] [facility] [address] [place] [address] Left knee pain, unspecified chronicity [...] Recorded Patient Health Questionnaire-2 Score 1 05/15/2024 [place] of Occupat ional Health - Occupational Stress [...] st Contact Info) Description 07/09/2024 12:30 PM FLOOR COVERER APPRENTICE Office Visit [facility] - GI [address] [facility], [place] [address] Twin Miller MD [address] [facility] [place] [address] 09/19/2024 2:00 PM CDT Office Visit [facility] - Orthopedic Surgery [address] [place] [phone] Larry Alexander MD [address] [facility] [address] [place] [address] documented as of this encounter Goals Goal [...] documented as of this encounter Care Teams Archives Director Relationship Specialty Start Date End Date Cleo Funk DO [address] [place] [address] PCP - General Family Medicine 05/15/24 documented as of this encounter
--- OUTSIDE RECORDS SUMMARY | 2024-05-25 02:58 | XMS_ITS | Encounter Summary ---
Author Organization [facility] Address [address] [facility] [place] [address] Care Team Providers Care Leadership Program Intern Name Role Phone Napoleon Birmingham Primary Care Provider Unavailestrellita e Encounter Details Date Type Department Care Team (Latest Contact Info) Description 04/02/2024 10:22 AM CDT - 04/02/2024 10:59 AM CDT Hospital Encounter [facility] OP DRAW STATION [address] [place] [phone] Twin Miller MD [address] OF GASTROENTEROLOGY [place], [place] [phone] Discharge Disposition: Home or Self Care Social [...] and heating? Not hard at all 10/14/2023 [facility] [place] of Occupat ional Health - Occupational Stress [...] place to sleep or slept in a custodial (including now)? No 10/14/2023 Sex and Gender [...] fluticasone propionate (Flonase) 50 MCG/ACT nasal spray [place] 1 (one) spray into each nostril once [...] st Contact Info) Description 07/09/2024 12:30 PM DISK OPERATOR Office Visit [facility] - GI [address] [place] [address], [place] [phone] Twin Miller MD [address] [place] [address] DIV [place] [address] 09/19/2024 2:00 PM CDT Office Visit [facility] - Orthopedic Surgery [address] [place] [phone] Larry Alexander MD [address] [facility] 280 [place] [address] documented as of this encounter Goals Goal [...] Name Priority Date/Time Associated Diagnosis Comments PT-INR [facility] Routine 04/02/2024 11:08 AM CDT Liver cirrhosis [...] in this encounter Results * (ABNORMAL) PT-INR [facility] (04/02/2024 11:08 AM CDT) PT 17.9(H) 12.1 - 14.8 Seconds 04/02/2024 12:13 PM CDT [facility] INR 1.5 See Comment 04/02/2024 12:13 PM T [facility] Comment:The suggested therap eutic range for standard coumadin (warfarin) therapy is an INR of 2.0-3.0. For high-risk patients (Mechanical Mitral Valve Prosthesis, etc.), the suggested prophylactic therapeutic range is an INR of 2.5-3.5. Blood BLOOD SPECIMEN / Unknown Lab Venipuncture / Unknown 04/02/2024 11:08 AM CDT 04/02/2024 11:14 AM CDT Twin Miller MD LAB - COAGULAT ION ORDERABLES [facility] [address] [place] [address], [facility] [phone] * (ABNORMAL) COMPREHENSIVE METABOLIC PANEL (04/02/2024 11:08 AM CDT) BUN 30(H) 7 - 26 mg/dL 04/02/2024 12:13 PM [facility] Creatinine 1.87(H) 0.71 - 1.16 mg/dL 04/02/2024 12:13 PM [facility] Sodium 145 136 - 145 mmol/L 04/02/2024 12:13 PM [facility] Potassium 3.8 3.5 - 4.5 mmol/L 04/02/2024 12:13 PM [facility] Chloride 105 98 - 107 mmol/L 04/02/2024 12:13 PM [facility] CO2 30(H) 22 - 29 mmol/L 04/02/2024 12:13 PM [facility] Glucose 106(H) 70 - 99 mg/dL 04/02/2024 12:13 PM [facility] Calcium 9.6 8.4 - 10.2 mg/dL 04/02/2024 12:13 PM [facility] Protein Total 6.8 6.0 - 8.3 g/dL 04/02/2024 12:13 PM [facility] Albumin 3.5 3.4 - 5.0 g/dL 04/02/2024 12:13 PM [facility] Bilirubin Total 0.5 0.2 - 1.2 mg/dL 04/02/2024 12:13 PM [facility] Alkaline Phosphatase 95 40 - 150 U/L 04/02/2024 12:13 PM [facility] ALT 14 5 - 55 U/L 04/02/2024 12:13 PM [facility] AST 22 5 - 34 U/L 04/02/2024 12:13 PM [facility] Anion Gap 10 6 - 16 04/02/2024 12:13 PM [facility] BUN/Creatinine Ratio 16 7 - 23 04/02/2024 12:13 PM [facility] Osmolality Calculated 307(H) 275 - 295 mOsm/kg 04/02/2024 12:13 PM [facility] Albumin/Globulin Ratio 1.1 1.1 - 2.3 04/02/2024 12:13 PM [facility] eGFR by CKD-EPI 37(L) >=90 mL/min/1.7 3 m2 04/02/2024 12:13 PM [facility] Blood BLOOD SPECIMEN / Unknown Lab Venipuncture / Unknown 04/02/2024 11:08 AM CDT 04/02/2024 11:46 AM T Twin Miller MD LAB - CHEMISTR Y ORDERABLES [facility] [address] [place] [address], [facility] [phone] * (ABNORMAL) CBC WITH DIFFERENTIAL (04/02/2024 11:08 AM T) WBC 6.7 4.0 - 10.7 x10E9/L 04/02/2024 1:27 PM [facility] RBC Count 3.48(L) 4.30 - 5.80 x10E12/L 04/02/2024 1:27 PM [facility] Hemoglobin 10.1(L) 13.3 - 17.5 g/dL 04/02/2024 1:27 PM [facility] Hematocrit 33.6(L) 38.7 - 51.1 % 04/02/2024 1:27 PM [facility] MCV 96.6 80.0 - 98.0 fL 04/02/2024 1:27 PM [facility] MCH 29.0 26.7 - 33.6 pg 04/02/2024 1:27 PM [facility] MCHC 30.1(L) 31.7 - 36.3 g/dL 04/02/2024 1:27 PM [facility] RDW-CV 15.7(H) 11.3 - 14.8 % 04/02/2024 1:27 PM [facility] Platelet Count 120(L) 150 - 420 x10E9/L 04/02/2024 1:27 PM [facility] MPV 04/02/2024 1:27 PM [facility] Comment:Unable to report Neutrophil % 67.8 41.0 - 74.0 % 04/02/2024 1:27 PM [facility] Lymphocyte % 12.7(L) 17.0 - 47.0 % 04/02/2024 1:27 PM [facility] Monocyte % 13.0(H) 3.0 - 11.0 % 04/02/2024 1:27 PM [facility] Eosinophil % 5.7 0.0 - 7.0 % 04/02/2024 1:27 PM [facility] Basophil % 0.7 0.0 - 1.6 % 04/02/2024 1:27 PM [facility] Immature Granulocytes % 0.1 0.0 - 1.0 % 04/02/2024 1:27 PM [facility] Neutrophil Absolute 4.51 1.60 - 7.50 x10E9/L 04/02/2024 1:27 PM [facility] Lymphocyte Absolute 0.85(L) 1.00 - 4.40 x10E9/L 04/02/2024 1:27 PM [facility] Monocyte Absolute 0.87 0.15 - 1.00 x10E9/L 04/02/2024 1:27 PM [facility] Eosinophil Absolute 0.38 0.00 - 0.60 x10E9/L 04/02/2024 1:27 PM [facility] Basophil Absolute 0.05 0.00 - 0.13 x10E9/L 04/02/2024 1:27 PM [facility] Blood BLOOD SPECIMEN / Unknown Lab Venipuncture / Unknown 04/02/2024 11:08 AM CDT 04/02/2024 11:46 AM T Twin Miller MD LAB - HEMATOLO GY ORDERABLES Performing Organization Address City/[facility]/ZIP Co de Phone Number [address] [address], [facility] [phone] * ALPHA FETOPROTEIN BLOOD TUMOR MARKER (04/02/2024 11:08 AM CDT) Alpha-Fetoprote in Tumor Marker <2.0 <=8.3 ng/mL 04/02/2024 12:37 PM CDT [facility] Comment: AFP values will vary depending on testing procedure used. Results are not comparable across different methods. AFP values obtained by [facility] using an marshallindex AliniHALO2CLOUD Immunoassay. Blood BLOOD SPECIMEN / Unknown Lab Venipuncture / Unknown 04/02/2024 11:08 AM CDT 04/02/2024 11:46 AM CDT Twin Miller MD LAB - CHEMISTR Y ORDERABLES Performing Organization Address City/[facility]/ZIP Co de Phone Number [address] [address], [facility] [phone] documented in this encounter Visit Diagnoses Diagnosis 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) Other chronic nonalcoholic liver disease Nonalcoholic steatohepatitis (RAYGOZA) Other chronic nonalcoholic liver disease documented in this encounter Additional Health Concerns Infection Onset Date Last Indicated Resolved Time MRSA Hx Comment:-nasal screen 09/201709/12/2017 10/17/2023 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
--- OUTSIDE RECORDS SUMMARY | 2024-05-25 02:58 | XMS_ITS | Encounter Summary ---
Author Organization [facility] Address [address] [facility] [place] [address] Care Team Providers Care Timber Management Technician Name Role Phone Napoleon Birmingham Primary [...] Not hard at all 10/14/2023 [facility] [place] of Occupat ional Health - Occupational Stress [...] place to sleep or slept in a intermediate (including now)? No 10/14/2023 Sex and Gender [...] st Contact Info) Description 07/09/2024 12:30 PM LEAD SOLUTIONS ARCHITECT Office Visit [facility] - GI [address] [place] [address], [place] [phone] Twin Miller MD [address] [place] [address] [place] [address] 09/19/2024 2:00 PM CDT Office Visit [facility] - Orthopedic Surgery [facility] [place] [phone] Larry Alexander MD [address] [place] [address] documented as of this encounter Goals Goal [...] documented as of this encounter Care Teams Timber Management Technician Relationship Specialty Start Date End Date Napoleon Birmingham PCP - General 10/13/23 05/14/24 documented as of this encounter
--- OUTSIDE RECORDS SUMMARY | 2024-05-25 02:58 | XMS_ITS | Encounter Summary ---
Author Organization [facility] Address [address] [facility] [place] [address] Care Team Providers Care Nuclear Waste Management Engineer Name Role Phone FunkRoseth Dylan EMERSON Primary Care Provider +1- [phone] Reason for Visit * Reason Comments Pain Knee * Consult, Test & Treat (Routine) - Pending Review Specialty Diagnoses / Procedures Referred By Ru flores Referred To Contact Orthopedic Surgery / Orthopedics Diagnoses Follow-up exam Napoleon Birmingham Jeffrey B, MD [address] [place] [address] Referral ID Status Reason Start Date Expiration Date V isits Requested Visits Authorized [id number] Pending Review 05/15/2024 05/15/2025 1 1 Encounter Details Date Type Department Care Team (Latest Contact Info) Description 05/15/2024 1:15 PM DISTRIBUTOR ADVERTISING MATERIAL Office Visit [facility] - Orthopedic Surgery [address] [place] [phone] Larry Alexander MD [address] [place] [phone] Primary osteoarthritis of left knee (Primary [...] Recorded Patient Health Questionnaire-2 Score 1 05/15/2024 [facility] of Occupat ional Health - Occupational Stress [...] place to sleep or slept in a detention (including now)? No 10/14/2023 Sex and Gender [...] We will see patient back as needed. RIBUTOR ADVERTISING MATERIAL documented in this encounter Procedure Notes * Larry Alexander MD - 05/15/2024 1:52 PM CSTAssociated Order(s): PROC INJECTION JOINT (SMALL/INTERMED/MAJOR) Procedure(s): NH DRAIN/INJECT LARGE JOINT/BURSA Pre-Procedure Diagnose(s): Primary osteoarthritis of left knee Orthopaedic Surgery Procedure Note Mason Keys [id number] Diagnosis: Left knee pain Procedure: Injection of [...] procedure Larry Alexander MD 05/15/2024 1:52 PM RIBUTOR ADVERTISING MATERIAL documented in this encounter Plan of Treatment Upcoming Encounters Date Type Department Care Team (Late st Contact Info) Description 07/09/2024 12:30 PM DISTRIBUTOR ADVERTISING MATERIAL Office Visit [facility] - GI [address] [place] [address], [place] [address] Twin Miller MD [address] [place] [address] [place] [address] 09/19/2024 2:00 PM CDT Office Visit [facility] - Orthopedic Surgery [address] [place] [phone] Larry Alexander MD [address] [address] documented as of this encounter Goals Goal [...] Procedure Name Priority Date/Time Associated Diagnosis Comments NH DRAIN/INJECT LARGE JOINT/BURSA Routine 05/15/2024 1:52 PM DISTRIBUTOR ADVERTISING MATERIAL Primary osteoarthritis of left knee documented in this encounter Results * NH DRAIN/INJECT LARGE JOINT/BURSA (05/15/2024 1:52 PM DISTRIBUTOR ADVERTISING MATERIAL) Narrative Larry Alexander MD - 05/15/2024 1:52 PM DISTRIBUTOR ADVERTISING MATERIAL Larry Alexander MD ? 05/15/2024 ??4:48 PM Orthopaedic Surgery Procedure Note Mason Keys [id number] Diagnosis: Left knee pain Procedure: Injection of [...] at 1400 $ Given 05/15/2024 2:35 PM DISTRIBUTOR ADVERTISING MATERIAL Left Knee triamcinolone acetonide (Kenalog-40) injection 80 mg 80 mg, Intra-articular, ONCE, 1 dose, On Tue05/15/24 at 1400, Shake well before using. 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
--- OUTSIDE RECORDS SUMMARY | 2024-05-25 02:58 | XMS_ITS | Patient Health Summary ---
Author Organization [facility] Address [address] [place] [address] Care Team Providers Care Center Mgr Name Role Phone Cleo Funk DO Primary Care Provider [phone] Note from [facility],non-owned Affiliates and Associated Physician Practices is amultiple site organization consisting of ambulatory clinics and hospital sitesin [place], [place], [place] and [place]. This disclosure is being madepursuant to the Care Everywhere program and may not contain all information available regarding this patient. Last updated 18.[facility] Allergies * Peppers(GI Discomfort) * Levofloxacin(Eye Itching) * Penicillins(Skin Reactions,Swelling) -Medium Criticality * Scopolamine(Other,OPERATIONS PLANT ATTENDANT Dysfunction) * Tobramycin(Eye Itching) Medications * Be [...] fluticasone propionate (Flonase) 50 MCG/ACT nasal spray [place] 1 (one) spray into each nostril once [...] Recorded Patient Health Questionnaire-2 Score 1 05/15/2024 [facility] [place] of Occupat ional Health - Occupational Stress [...] AM CDT Medical Devices Implanted Type Area Blackjack Pit Boss Device Identifier Shelf Expiration Date Model / Serial / Lot Trident 10 Deg X 3 Insert 36mm Id Implanted:Qty: 1 on 02/08/2019 by Larry Alexander MD at [facility] Hip [employer] 06/23/2021 623-100 36F / / [id number] Description:36MM POLYETHYLEN E INSERT C-Taper Cocr Lfit Head 36mm/0 Implanted:Qty: 1 on 02/08/2019 by Larry Alexander MD at [facility] Hip [employer] 02/12/2023 06-3600 / / [id number] Description:LEFT FEMORAL HEA D 36MM Procedures * HI DRAIN/INJECT LARGE JOINT/BURSA(Performed 05/15/2024) Performed for Primary [...] * CBC W AUTO DIFFERENTIAL(Performed 10/12/2023) * HI ED EGD FLEX TRANSORAL DX(Performed 05/12/2023) Performed [...] 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) * HI ED EGD FLEX TRANSORAL DX(Performed 10/07/2022) Performed [...] 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) * HI LIVER ELASTOGRAPHY(Performed 08/31/2020) Performed for Liver cirrhosis [...] secondary to RAYGOZA (HCC), Metabolic syndrome * HI ED EGD FLEX TRANSORAL DX(Performed 07/03/2020) Performed [...] 05/02/2019) * ENDOTRACHEAL TUBE NOTE(Performed 05/02/2019) * HI NEG PRESS WND TX PER SESS; TOT SURF </= 50 SQ CM(Performed 05/02/2019) Performed for Diagnosis unknown * HI INCIS/DRAIN PELVIS/HIP,DEEP ABSCESS(Performed 05/02/2019) Performed for Diagnosis unknown * COMPREHENSIVE METABOLIC PANEL(Performed 05/02/2019) * CBC W AUTO DIFFERENTIAL(Performed 05/02/2019) * ECHOCARDIOGRAM 2D WITH DOPPLER(Performed 05/01/2019) Performed for 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, subsequent encounter, Coronary artery disease without angina pectoris, unspecified vessel or lesion type, unspecified whether chitimacha or transplanted heart, Chronic atrial fibrillation (HCC) * EKG 12-LEAD(Performed 05/01/2019) Performed for 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, subsequent encounter * XR CHEST 1VW PORTABLE(Performed 05/01/2019) Performed for 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, subsequent encounter, Coronary artery disease without angina pectoris, unspecified vessel or lesion type, unspecified whether chitimacha or transplanted heart * VANCOMYCIN LEVEL TROUGH(Performed [...] 02/09/2019) * ENDOTRACHEAL TUBE NOTE(Performed 02/08/2019) * HI SECD CLOS SURG WND EXTEN/COMPLIC(Performed 02/08/2019) Performed [...] unknown * ENDOTRACHEAL TUBE NOTE(Performed 02/04/2019) * HI NEG PRESS WND TX PER SESS; TOT SURF </= 50 SQ CM(Performed 02/04/2019) * HI INCIS/DRAIN PELVIS/HIP,DEEP ABSCESS(Performed 02/04/2019) * GLUCOSE - [...] with internal right hip prosthesis, initial encounter ([facility]) * GLUCOSE - POINT OF CARE(Performed 02/03/2019) * GLUCOSE - POINT OF CARE(Performed 02/03/2019) * XR FEMUR RIGHT 2VW(Performed 02/03/2019) Performed for 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, initial encounter ([facility]) * LACTIC ACID BLOOD(Performed 02/03/2019) * HEMOGLOBIN [...] 07/29/2017) * GLUCOSE ACCUCHECK(Performed 07/28/2017) * CYTOLOGY NON-PALLIATIVE MEDICINE PHYSICIAN PANEL (STL)(Performed 07/28/2017) * DIFFERENTIAL MANUAL FLUID(Performed [...] 07/14/2017) * HEPATITIS C ANTIBODY(Performed 07/14/2017) * [id number] BLOOD PHENOTYPING PANEL(Performed 07/14/2017) * TRANSFERRIN(Performed 07/14/2017) * HIV-1 HIV-2 ANTIGEN/ANTIBODY(Performed 07/14/2017) * EKG 12-LEAD(Performed 07/14/2017) * CULTURE AEROBIC(Performed 06/08/2017) * ZINC BLOOD(Performed 04/23/2017) * VITAMIN D 25-HYDROXY(Performed 04/23/2017) * TSH HI LOW REFLEX FREE T4(Performed 04/23/2017) * CULTURE AEROBIC(Performed 04/06/2017) * CULTURE AEROBIC(Performed 02/14/2017) * DERMATOPATHOLOGY(Performed 02/14/2017) * DERMATOPATHOLOGY(Performed 02/14/2017) Results * HI DRAIN/INJECT LARGE JOINT/BURSA (05/15/2024 1:52 PM HOSPITAL ACCOUNT MANAGER) Narrative Larry Alexander MD - 05/15/2024 1:52 PM HOSPITAL ACCOUNT MANAGER Larry Alexander MD ? 05/15/2024 ??4:48 PM Orthopaedic Surgery Procedure Note José Miguel Keys [id number] Diagnosis: Left knee pain Procedure: Injection of [...] XR Knee Left 3Vw (05/15/2024 1:22 PM HOSPITAL ACCOUNT MANAGER) Anatomical Region Laterality Modality Lower Extremity Radiographic Shama ging 05/15/2024 1:51 PM HOSPITAL ACCOUNT MANAGER Narrative 05/15/2024 1:51 PM HOSPITAL ACCOUNT MANAGER Procedure: XR KNEE LEFT 3VW ??Exam Date: ??05/15/2024 1:23 PM ?? Location: ??[facility] Indication: M25.562: Pain in left [...] LEFT 3VW Exam Date: 05/15/2024 1:23 PM Location:[facility] Indication: M25.562: Pain in left [...] DATE/TIME OF EXAM: ??04/02/2024 12:19 PM, LOCATION ??[facility] INDICATION: K75.81: Liver cirrhosis secondary to [...] DATE/TIME OF EXAM: 04/02/2024 12:19 PM, LOCATION [facility] INDICATION: K75.81: Liver cirrhosis secondary to [...] Miller MD US ORDERABLES * (ABNORMAL) PT-INR [facility] (04/02/2024 11:08 AM CDT) Only the most recent of18 resultswithin the time period is included. PT 17.9(H) 12.1 - 14.8 Seconds 04/02/2024 12:13 PM T [facility] INR 1.5 See Comment 04/02/2024 12:13 PM [facility] Comment:The suggested therap eutic range for standard coumadin (warfarin) therapy is an INR of 2.0-3.0. For high-risk patients (Mechanical Mitral Valve Prosthesis, etc.), the suggested prophylactic therapeutic range is an INR of 2.5-3.5. Blood BLOOD SPECIMEN / Unknown Lab Venipuncture / Unknown 04/02/2024 11:08 AM CDT 04/02/2024 11:14 AM CDT Twin Miller MD LAB - COAGULAT ION ORDERABLES Performing Organization Address [facility] de Phone Number [address] [address], [facility] [phone] * ALPHA FETOPROTEIN BLOOD TUMOR MARKER (04/02/2024 11:08 AM CDT) Only the most recent of9 resultswithin the time period is included. [facility] Alpha-Fetoprote in Tumor Marker <2.0 <=8.3 ng/mL 04/02/2024 12:37 PM CDT [facility] Comment: AFP values will vary depending on testing procedure used. Results are not comparable across different methods. AFP values obtained by [facility] using an [employer] Alinity Immunoassay. Blood BLOOD SPECIMEN / Unknown Lab Venipuncture / Unknown 04/02/2024 11:08 AM CDT 04/02/2024 11:46 AM CDT Twin Miller MD LAB - CHEMISTR Y ORDERABLES Performing Organization Address [facility] Co de Phone Number [address] [address], [facility] [phone] * (ABNORMAL) CBC WITH DIFFERENTIAL (04/02/2024 11:08 AM CDT) Only the most recent of125 resultswithin the time period is included. [facility] WBC 6.7 4.0 - 10.7 x10E9/L 04/02/2024 1:27 PM CDT [facility] RBC Count 3.48(L) 4.30 - 5.80 x10E12/L 04/02/2024 1:27 PM CDT [facility] Hemoglobin 10.1(L) 13.3 - 17.5 g/dL 04/02/2024 1:27 PM CDT [facility] Hematocrit 33.6(L) 38.7 - 51.1 % 04/02/2024 1:27 PM [facility] MCV 96.6 80.0 - 98.0 fL 04/02/2024 1:27 PM [facility] MCH 29.0 26.7 - 33.6 pg 04/02/2024 1:27 PM [facility] MCHC 30.1(L) 31.7 - 36.3 g/dL 04/02/2024 1:27 PM [facility] RDW-CV 15.7(H) 11.3 - 14.8 % 04/02/2024 1:27 PM [facility] Platelet Count 120(L) 150 - 420 x10E9/L 04/02/2024 1:27 PM [facility] MPV 04/02/2024 1:27 PM [facility] Comment:Unable to report Neutrophil % 67.8 41.0 - 74.0 % 04/02/2024 1:27 PM [facility] Lymphocyte % 12.7(L) 17.0 - 47.0 % 04/02/2024 1:27 PM [facility] Monocyte % 13.0(H) 3.0 - 11.0 % 04/02/2024 1:27 PM [facility] Eosinophil % 5.7 0.0 - 7.0 % 04/02/2024 1:27 PM [facility] Basophil % 0.7 0.0 - 1.6 % 04/02/2024 1:27 PM [facility] Immature Granulocytes % 0.1 0.0 - 1.0 % 04/02/2024 1:27 PM [facility] Neutrophil Absolute 4.51 1.60 - 7.50 x10E9/L 04/02/2024 1:27 PM [facility] Lymphocyte Absolute 0.85(L) 1.00 - 4.40 x10E9/L 04/02/2024 1:27 PM [facility] Monocyte Absolute 0.87 0.15 - 1.00 x10E9/L 04/02/2024 1:27 PM [facility] Eosinophil Absolute 0.38 0.00 - 0.60 x10E9/L 04/02/2024 1:27 PM [facility] Basophil Absolute 0.05 0.00 - 0.13 x10E9/L 04/02/2024 1:27 PM [facility] Blood BLOOD SPECIMEN / Unknown Lab Venipuncture / Unknown 04/02/2024 11:08 AM CDT 04/02/2024 11:46 AM CDT Twin Miller MD LAB - HEMATOLO GY ORDERABLES [facility] [address] [place] [address], [facility] [phone] * (ABNORMAL) COMPREHENSIVE METABOLIC PANEL (04/02/2024 11:08 AM CDT) Only the most recent of60 resultswithin the time period is included. BUN 30(H) 7 - 26 mg/dL 04/02/2024 12:13 PM [facility] Creatinine 1.87(H) 0.71 - 1.16 mg/dL 04/02/2024 12:13 PM [facility] Sodium 145 136 - 145 mmol/L 04/02/2024 12:13 PM [facility] Potassium 3.8 3.5 - 4.5 mmol/L 04/02/2024 12:13 PM [facility] Chloride 105 98 - 107 mmol/L 04/02/2024 12:13 PM [facility] CO2 30(H) 22 - 29 mmol/L 04/02/2024 12:13 PM [facility] Glucose 106(H) 70 - 99 mg/dL 04/02/2024 12:13 PM [facility] Calcium 9.6 8.4 - 10.2 mg/dL 04/02/2024 12:13 PM [facility] Protein Total 6.8 6.0 - 8.3 g/dL 04/02/2024 12:13 PM [facility] Albumin 3.5 3.4 - 5.0 g/dL 04/02/2024 12:13 PM [facility] Bilirubin Total 0.5 0.2 - 1.2 mg/dL 04/02/2024 12:13 PM [facility] Alkaline Phosphatase 95 40 - 150 U/L 04/02/2024 12:13 PM [facility] ALT 14 5 - 55 U/L 04/02/2024 12:13 PM [facility] AST 22 5 - 34 U/L 04/02/2024 12:13 PM [facility] Anion Gap 10 6 - 16 04/02/2024 12:13 PM [facility] BUN/Creatinine Ratio 16 7 - 23 04/02/2024 12:13 PM [facility] Osmolality Calculated 307(H) 275 - 295 mOsm/kg 04/02/2024 12:13 PM [facility] Albumin/Globulin Ratio 1.1 1.1 - 2.3 04/02/2024 12:13 PM [facility] eGFR by CKD-EPI 37(L) >=90 mL/min/1.7 3 m2 04/02/2024 12:13 PM [facility] Blood BLOOD SPECIMEN / Unknown Lab Venipuncture / Unknown 04/02/2024 11:08 AM CDT 04/02/2024 11:46 AM CDT Twin Miller MD LAB - CHEMISTR Y ORDERABLES [facility] [address] [place] [address], [facility] [phone] * CARDIAC EKG ORDER (11/07/2023 11:24 PM [...] - 106 mg/dL 11/03/2023 12:18 PM CDT [facility] Specimen Type Cap Fingerstick 2023 12:18 PM CDT [facility] Blood BLOOD SPECIMEN / Unknown 11/03/2023 12:08 PM CDT 11/03/2023 12:18 PM CDT Ariel Martinez MD LAB - POINT OF CARE ORDERABLES Performing Organization Address [facility] Co de Phone Number [facility] [address] [place] [address] * SARS-COV-2 (COVID-19) RAPID (11/03/2023 10:51 AM CDT) [facility] Signature COVID-19 PCR Not detected Not detected 11/03/19 11:27 AM CDT [facility] Microbiology SPECIMEN FROM NASOPHARYNGEAL STRUCTURE / Unknown Collection / Unknown 11/03/2023 10:51 AM CDT 11/03/2023 10:54 AM CDT Narrative [facility] - 11/03/2023 11:27 AM CDT The [employer]ep[employer] Xpert Xpress SARS-COV-2 has been authorized by [...] - MICROBIOLOGY O RDERABLES Performing Organization Address [facility]/ZIP Co de Phone Number [facility] [address] [place] [address] * (ABNORMAL) BASIC METABOLIC PANEL (CALCIUM TOTAL) (11/03/2023 4:17 AM CDT) Only the most recent of52 resultswithin the time period is included. Glucose 92 70 - 105 mg/dL 11/03/2023 5:00 AM [facility] Sodium 138 136 - 145 mmol/L 11/03/2023 5:00 AM [facility] Potassium 4.5 3.5 - 5.1 mmol/L 11/03/2023 5:00 AM [facility] Chloride 107 98 - 107 mmol/L 11/03/2023 5:00 AM [facility] CO2 25 22 - 29 mmol/L 11/03/2023 5:00 AM [facility] Calcium 9.3 8.4 - 10.4 mg/dL 11/03/2023 5:00 AM [facility] Anion Gap 6 6 - 16 mmol/L 11/03/2023 5:00 AM [facility] BUN 25 7 - 26 mg/dL 11/03/2023 5:00 AM [facility] Creatinine 1.59(H) 0.72 - 1.25 mg/dL 11/03/2023 5:00 AM [facility] eGFR by CKD-EPI 45(L) >=90 mL/min/1.7 3 m2 11/03/2023 5:00 AM [facility] Blood BLOOD SPECIMEN / Unknown Lab Venipuncture / Unknown 11/03/2023 4:17 AM CDT 11/03/2023 4:39 AM T Ariel Martinez MD LAB - CHEMISTRY ROYCE KLINE [facility] Organization Address City/State/ZIP Co de Phone Number [facility] [address] [place] [address] * MAGNESIUM BLOOD (11/03/2023 4:17 AM CDT) Only the most recent of76 resultswithin the time period is included. Magnesium 2.1 1.6 - 2.6 mg/dL 11/03/2023 5:00 AM [facility] Blood BLOOD SPECIMEN / Unknown Lab Venipuncture / Unknown 11/03/2023 4:17 AM CDT 11/03/2023 4:39 AM CDT Tamara Bauman MD LAB - CHEMISTRY ROYCE KLINE [facility] Organization Address City/State/ZIP Co de Phone Number [facility] [address] [facility] [place] [address] * XR CHEST 1VW PORTABLE (11/02/2023 4:37 [...] - 7.45 pH 11/02/2023 4:27 PM CDT [facility]ER[facility] pCO2 Arterial 59(H) 35 - 45 mmHg 11/02/2023 4:27 PM CDT [facility] RESP THERAPY pO2 Arterial 133(H) 80 - 100 mmHg 11/02/2023 4:27 PM CDT [facility] RESP THERAPY HCO3 Arterial 26.5(H) 22.0 - 26.0 mmol/L 11/02/2023 4:27 PM CDT [facility] RESP THERAPY BE Arterial -1.7 -2.0 - 2.0 mmol/L 11/02/2023 4:27 PM CDT [facility] RESP THERAPY O2 Saturation Arterial 100 90 - 100 % 11/02/2023 4:27 PM CDT [facility] THERAPY Malik's Test Positive 11/02/2023 4:27 PM CDT [facility] Sample Site Left RA 11/02/2023 4:27 PM CDT [facility] O2 Device Cannula 11/02/2023 4:27 PM CDT [facility] Liter Flow (LPM) 3 11/02/2023 4:27 PM CDT [facility] RESP THERAPY P/F Ratio 11/02/2023 4:27 PM CDT [facility] Comment:C^Incalculable Blood, arterial ARTERIAL BLOOD SPECIMEN / Unknown 11/02/2023 4:23 PM CDT 11/02/2023 4:23 PM CDT Ariel Martinez MD LAB - BLOOD GASES OR DERABLES [facility] RESP THERAPY [address] [facility], [facility] [employer] [address] [phone] * (ABNORMAL) B-TYPE NATRIURETIC PEPTIDE (11/01/2023 5:02 AM CDT) Only the most recent of8 resultswithin the time period is included. BNP 673(H) <=100 pg/mL 11/01/2023 5:30 AM CDT [facility] Blood BLOOD SPECIMEN / Unknown Lab Venipuncture / Unknown 11/01/2023 5:02 AM CDT 11/01/2023 5:05 AM CDT Tiffany Fortune MD LAB - CHEMISTRY ROYCE KLINE Performing Organization Address [facility]/ZIP Co de Phone Number [facility] [address] [place] [address] * (ABNORMAL) LIPID PROFILE (11/01/2023 5:02 AM CDT) Cholesterol 100 <200 mg/dL 11/01/2023 5:26 AM CDT [facility] Triglycerides 74 <150 mg/dL 11/01/2023 5:26 AM [facility] HDL Cholesterol 33(L) >40 mg/dL 4 5:26 AM [facility] LDL Calculated 52 <130 mg/dL 11/01/2023 5:26 AM [facility] VLDL Calculated 15 <=30 mg/dL 4 5:26 AM [facility] Chol HDL Ratio 3.0 <4.5 11/01/2023 5:26 AM [facility] LDL/HDL Ratio 1.6 <5.0 11/01/2023 5:26 AM T [facility] Blood BLOOD SPECIMEN / Unknown Lab Venipuncture / Unknown 11/01/2023 5:02 AM CDT 11/01/2023 5:05 AM CDT Mary Cote MD LAB - CHEMISTRY ROYCE KLINE Performing Organization Address City/[facility]/ZIP Co de Phone Number [facility] [address] [place] [address] * VAS RIGHT VENOUS DUPLEX UE (10/27/2023 9:33 AM CDT) Anatomical Region Laterality Modality Upper Extremity Intravascular Ul trasound 10/27/2023 9:08 AM CDT Narrative 10/27/2023 9:40 AM CDT ?[facility] ?[address] ?[place], [place] ??[address] ? Upper Extremity Venous Ultrasound Report ? Pat.Name: ??JOSÉ MIGUEL KEYS ? Pat.ID: ?[id number] ? St.Date: ?? 10/27/2023 ? Refer.MD: ??Dipak Padilla ? Exam Time: 9:08:00 AM ?Study Type:UE Venous ?Age: ??1950,72Y ?Sex: ? MALE ? Sonogrphr: Elisabet Caba, RVT ?Pat. Stat.:Inpatient ? Room: ?435 ? CPT - 4: ?19758 ? Reason for Study: Swelling -Arm/hand, right Procedures: ??Upper Extremity Venous - Right Race: ?CAU ? Visit ID: ??[id number] ? ++++++++++++++++++++++++++++++++++++ SUMMARY: ++++++++++++++++++++++++++++++++++++ Acute superficial, occlusive [...] Note Александр Johnston Sr., MD - 11/01/2023 [facility] [address] [place] [address] Upper Extremity Venous Ultrasound Report Pat.Name: KEYS JOSÉ MIGUEL Nia Pat.ID: [id number] .Date: 10/27/2023 Refer.MD: Dipak Padilla Exam Time: 9:08:00 AM Study Type:UE Venous Age: 4 1950,72Y Sex: MALE Sonogrphr: Elisabet Caba RVT Pat. Stat.:Inpatient Room: 435 CPT - 4: 19757 Reason for Study: Swelling -Arm/hand, right Procedures: Upper Extremity Venous - Right Race: [facility] Visit ID: [id number] ++++++++++++++++++++++++++++++++++++ SUMMARY: ++++++++++++++++++++++++++++++++++++ Acute superficial, occlusive venous [...] - 74 % 10/27/2023 8:29 AM CDT [facility] Lymphocyte % 4(L) 17 - 47 % 10/27/2023 8:29 AM CDT [facility] Monocyte % 8 3 - 11 % 10/27/2023 8:29 AM CDT [facility] Eosinophil % 1 0 - 7 % 10/27/2023 8:29 AM CDT [facility] Basophil % 1 0 - 2 % 10/27/2023 8:29 AM CDT [facility] Neutrophil Absolute 12.47(H) 1.60 - 7.50 x10E9/L 10/27/2023 8:29 AM CDT [facility] Lymphocyte Absolute 0.58(L) 1.00 - 4.40 x10E9/L 10/27/2023 8:29 AM CDT [facility] Monocyte Absolute 1.16(H) 0.15 - 1.00 x10E9/L 10/27/2023 8:29 AM CDT [facility] Eosinophil Absolute 0.15 0.00 - 0.60 x10E9/L 10/27/2023 8:29 AM CDT [facility] Basophil Absolute 0.15(H) 0.00 - 0.13 x10E9/L 10/27/2023 8:29 AM CDT [facility] RBC Morphology REVIEWED 10/27/2023 8:29 AM CDT [facility] Macrocytosis MODERATE(A) (none) 10/27/2023 8:29 AM CDT [facility] Polychromatic Cells MODERATE(A) (none) 10/27/2023 8:29 AM CDT [facility] Blood BLOOD SPECIMEN / Unknown Venipuncture / Unknown 10/27/2023 7:37 AM CDT 10/27/2023 7:37 AM CDT Tamara Bauman MD LAB - HEMATOLOGY ORD ERABLES Performing Organization Address City/State/[facility] Co de Phone Number [facility] [address] [place] [address] * XR ELBOW RIGHT 2VW (10/26/2023 3:21 [...] - 107 mmol/L 10/26/2023 4:51 AM CDT [facility] CO2 19(L) 22 - 29 mmol/L 10/26/2023 4:51 AM CDT [facility] Calcium 9.3 8.4 - 10.4 mg/dL 10/26/2023 4:51 AM CDT [facility] Anion Gap 12 6 - 16 mmol/L 10/26/2023 4:51 AM CDT [facility] BUN 17 7 - 26 mg/dL 10/26/2023 4:51 AM CDT [facility] Creatinine 1.08 0.72 - 1.25 mg/dL 10/26/2023 4:51 AM CDT [facility] Albumin 2.4(L) 3.4 - 5.0 gm/dL 10/26/2023 4:51 AM CDT [facility] Phosphorus 2.6 2.3 - 4.7 mg/dL 10/26/2023 4:51 AM CDT [facility] eGFR by CKD-EPI 72(L) >=90 mL/min/1.7 3 m2 10/26/2023 4:51 AM CDT [facility] Blood BLOOD SPECIMEN / Unknown Lab Venipuncture / Unknown 10/26/2023 3:59 AM CDT 10/26/2023 4:26 AM CDT Dipak Padilla MD LAB - CHEMISTRY ROYCE KLINE [facility] Organization Address City/State/ZIP Co de Phone Number [facility] [address] [place] [address] * XR CHEST 1VW (10/24/2023 5:17 AM [...] Thin liquid: ? No penetration or aspiration. [place] thickness: ? No penetration or aspiration. ?? [...] . Thin liquid: No penetration or aspiration. [place] thickness: No penetration or aspiration. [place] thickness: [...] RBC Morphology NORMAL 10/21/2023 6:55 AM CDT [facility] Blood BLOOD SPECIMEN / Unknown Lab Venipuncture / Unknown 10/21/2023 3:41 AM CDT 10/21/2023 3:43 AM CDT Tamara Bauman MD LAB - HEMATOLOGY ORD ERABLES [facility] [address] [place] [address] * EEG (10/20/2023 12:00 PM CDT) 10/20/2023 12:0 0 PM CDT Narrative Procedure Note Yanira Luna MD - 10/20/2023 7:17 PM CDT [facility] Electroencephalogram Report PATIENT NAME: JOSÉ MIGUEL KEYS MR#: [id number] ROOM#: [id number] CSN: [id number] ADMISSION DATE: 10/12/2023 SEX: M : 1950 [...] is suggested. DICTATOR: YANIRA LUNA M.D. MP/MODL #:[id number] cc: Yanira Luna M.D. Yanira Luna MD NEUROLOGY ORDERABLES [facility] * (ABNORMAL) SODIUM BLOOD (10/19/2023 4:39 PM CDT) Sodium 155(H) 136 - 145 mmol/L 10/19/2023 4:55 PM CDT [facility] Blood BLOOD SPECIMEN / Unknown Lab Venipuncture / Unknown 10/19/2023 4:39 PM CDT 10/19/2023 4:42 PM CDT Jayme Rodriguez MD LAB - CHEMISTRY ORDMarj KLINE Performing Organization Address [facility] Co de Phone Number [facility] [address] [place] [address] * (ABNORMAL) BLOOD GASES ART + COOX [...] - 100 % 10/17/2023 9:23 PM CDT [facility] THERAPY Methemoglobin <0.8 0.0 - 2.0 % 10/17/2023 9:23 PM CDT [facility] THERAP[facility] Carboxyhemoglobin 2.0 0.0 - 2.0 % 2023 9:23 PM CDT [facility] Hemoglobin by COOX 12.1 12.0 - 17.6 g/dL 10/17/2023 9:23 PM CDT [facility]ER[facility] Malik's Test Positive 10/17/2023 9:23 PM CDT [facility] Sample Site Right RA 10/17/2023 9:23 PM CDT [facility] O2 Device Cannula 10/17/2023 9:23 PM CDT [facility] Liter Flow (LPM) 3 10/17/19 9:23 PM CDT [facility] RESP THERAPY P/F Ratio 10/17/2023 9:23 PM T [facility] RESP THERAPY Comment:C^Incalculable Blood, arterial ARTERIAL BLOOD SPECIMEN / Unknown 10/17/2023 9:17 PM CDT 10/17/2023 9:17 PM CDT Omi Fortune MD LAB - BLOOD GASES ORDERABLES Performing Organization Address [facility] Co de Phone Number [facility] RESP THERAPY [address] [phone] * AMMONIA (10/17/2023 12:33 PM CDT) Only the most recent of4 resultswithin the time period is included. Ammonia 26 18 - 72 umol/L 10/17/2023 12:53 PM CDT [facility] Blood BLOOD SPECIMEN / Unknown Lab Venipuncture / Unknown 10/17/2023 12:33 PM CDT 10/17/2023 12:44 PM CDT Omi Fortune MD LAB - CHEMI STRY ORDERABLES Performing Organization Address City/[facility]/ZIP Co de Phone Number [facility] [address] [phone] * (ABNORMAL) C-REACTIVE PROTEIN (10/17/2023 11:23 AM CDT) Only the most recent of9 resultswithin the time period is included. C-Reactive Protein 8.84(H) <=0.50 mg/dL 10/17/2023 11:57 AM CDT [facility] Blood BLOOD SPECIMEN / Unknown Lab Venipuncture / Unknown 10/17/2023 11:23 AM CDT 10/17/2023 11:47 AM CDT Aneta Campbell DO LAB - CHEMISTRY O RDERABLES [facility] [address] [place] [address] * CT HEAD WO CONTRAST (10/17/2023 10:37 [...] - 4.7 mg/dL 10/15/2023 5:14 AM CDT [facility] Blood BLOOD SPECIMEN / Unknown Lab Venipuncture / Unknown 10/15/2023 4:44 AM CDT 10/15/2023 4:47 AM CDT Kalia Berry MD LAB - CHEMISTRY ROYCE KLINE [facility] Organization Address City/State/ZIP Co de Phone Number [facility] [address] [place] [address] * (ABNORMAL) CK BLOOD (10/15/2023 4:44 AM CDT) Only the most recent of12 resultswithin the time period is included. CK 440(H) 30 - 200 U/L 10/15/2023 5:14 AM CDT [facility] Blood BLOOD SPECIMEN / Unknown Lab Venipuncture / Unknown 10/15/2023 4:44 AM CDT 10/15/2023 4:47 AM CDT Kalia Berry MD LAB - CHEMISTRY ORDMarj KLINE Performing Organization Address [facility]/ZIP Co de Phone Number [facility] [address] [place] [address] * FOLATE (10/14/2023 3:37 AM CDT) Only the most recent of2 resultswithin the time period is included. Folate 12.4 7.0 - 31.4 ng/mL 10/14/2023 4:40 AM CDT [facility] Blood BLOOD SPECIMEN / Unknown Venipuncture / Unknown 10/14/2023 3:37 AM CDT 10/14/2023 3:47 AM CDT Halina Barraza MD LAB - CHEMISTRY ORDMarj KLINE Performing Organization Address [facility]/ZIP Co de Phone Number [facility] [address] [place] [address] * VANCOMYCIN LEVEL RANDOM (10/14/2023 3:37 AM CDT) Only the most recent of10 resultswithin the time period is included. Vancomycin Random 19.7 <=40.0 ug/mL 10/14/2023 4:05 AM CDT [facility] Blood BLOOD SPECIMEN / Unknown Venipuncture / Unknown 10/14/2023 3:37 AM CDT 10/14/2023 3:47 AM CDT Narrative [facility] - 10/14/2023 4:05 AM CDT No reference range available for random Vancomycin levels. All results interpreted by ordering physician. Nas Mcnally MD LAB - CHEMISTRY ROYCE KLINE Performing Organization Address City/[facility]/ZIP Co de Phone Number [facility] [address] [place] [address] * (ABNORMAL) IRON + TRANSFERRIN PANEL (10/14/2023 3:37 AM CDT) Iron 20(L) 50 - 175 ug/dL 10/14/2023 4:05 AM CDT [facility] Transferrin 152(L) 174 - 382 mg/dL 10/14/2023 4:05 AM CDT [facility] TIBC Calculated 190(L) 240 - 450 ug/dL 10/14/2023 4:05 AM CDT [facility] Iron Saturation % 11(L) 20 - 50 % 10/14/2023 4:05 AM CDT [facility] Blood BLOOD SPECIMEN / Unknown Venipuncture / Unknown 10/14/2023 3:37 AM CDT 10/14/2023 3:47 AM CDT Halina Barraza MD LAB - CHEMISTRY ROYCE KLINE Performing Organization Address [facility]/ZIP Co de Phone Number [facility] [address] [place] [address] * (ABNORMAL) URINALYSIS REFLEX TO MICROSCOPIC NO CULTURE (10/13/2023 2:24 PM CDT) Only the most recent of2 resultswithin the time period is included. Color UA Celia(A) Straw, Yellow 10/13/2023 2:45 PM CDT [facility] Clarity UA Cloudy(A) Clear 10/13/2023 2:45 PM CDT [facility] Glucose UA Negative Negative 10/13/2023 2:45 PM CDT [facility] Bilirubin UA Negative Negative 10/13/2023 2:45 PM CDT [facility] Ketone UA Negative Negative 10/13/2023 2:45 PM CDT [facility] Specific [place] UA 1.028 1.005 - 1.030 10/13/2023 2:45 PM CDT [facility] Blood UA 3+(A) Negative 10/13/2023 2:45 PM CDT [facility] pH UA 5.0 5.0 - 8.0 pH 10/13/2023 2:45 PM CDT [facility] Protein UA 2+(A) Negative 10/13/2023 2:45 PM CDT [facility] Urobilinogen UA Negative Negative mg/dL 10/13/2023 2:45 PM CDT [facility] Nitrite UA Negative Negative 10/13/2023 2:45 PM CDT [facility] Leukocyte UA 2+(A) Negative 10/13/2023 2:45 PM CDT [facility] Urine Microscopy Urine microscopy to follow 10/13/2023 2:45 PM CDT [facility] Urine URINE SPECIMEN OBTAINED VIA INDWELLING URINARY CATHETER / Unknown Collection / Unknown 10/13/2023 2:24 PM CDT 10/13/2023 2:31 PM CDT Narrative [facility] - 10/13/2023 2:45 PM CDT Kalia Berry MD LAB - URINALYSIS ORD ERABLES Performing Organization Address City/[facility] Co de Phone Number [facility] [address] [place] [address] * (ABNORMAL) URINE MICROSCOPIC ONLY (10/13/2023 2:24 PM CDT) RBC UA >100(A) 0 - 5 # /hpf 10/13/2023 2:57 PM CDT [facility] WBC UA >100(A) 0 - 5 # /hpf 10/13/2023 2:57 PM CDT [facility] Bacteria UA None Seen None Seen 10/13/2023 2:57 PM CDT [facility] Squamous Epithelial Cells 3-5 0 - 5 /hpf 10/13/2023 2:57 PM CDT [facility] Urine URINE SPECIMEN OBTAINED VIA [employer]WELL[employer] URINARY CATHETER / Unknown Collection / Unknown 10/13/2023 2:24 PM CDT 10/13/2023 2:31 PM CDT Narrative [facility] - 10/13/2023 2:57 PM CDT Kalia Berry MD LAB - URINALYSIS ORD ERABLES Performing Organization Address City/[facility] Co de Phone Number [facility] [address] [place] [address] * LYTES (NA K CL) URINE RANDOM PANEL (10/13/2023 2:24 PM CDT) Sodium Urine <20 mmol/L 10/13/2023 2:55 PM CDT [facility] Potassium Urine 69.3 mmol/L 10/13/2023 2:55 PM CDT [facility] Chloride Urine <20.0 mmol/L 10/13/2023 2:55 PM CDT [facility] Urine URINE SPECIMEN OBTAINED BY CLEAN CATCH PROCEDURE / Unknown Collection / Unknown 10/13/2023 2:24 PM CDT 10/13/2023 2:31 PM CDT Kalia Berry MD LAB - URINE CHEMISTR Y ORDERABLES Performing Organization Address [facility] Co de Phone Number [facility] [address] [place] [address] * (ABNORMAL) HEMOGLOBIN A1C (10/13/2023 3:46 AM CDT) Only the most recent of3 resultswithin the time period is included. Hemoglobin A1c 6.5(H) <5.7 % 10/13/2023 5:17 AM CDT [facility] Estimated Average Glucose 140 mg/dL 10/13/2023 5:17 AM CDT [facility] Blood BLOOD SPECIMEN / Unknown Venipuncture / Unknown 10/13/2023 3:46 AM CDT 10/13/2023 3:55 AM CDT Narrative [facility] - 10/13/2023 5:17 AM CDT HbA1c [...] (HbF) exceeds 5% in the specimen. The [employer] Alinity assay for the measurement of HbA1c is a National Glycohemoglobin Standardization Program (NGSP) certified method. Halina Barraza MD LAB - CHEMISTRY ROYCE KLINE Performing Organization Address City/[facility]/ZIP Co de Phone Number [facility] [address] [place] [address] * (ABNORMAL) LACTIC ACID BLOOD (10/12/2023 11:36 AM CDT) Only the most recent of15 resultswithin the time period is included. Pathologist [facility] Lactic Acid 2.1(H) <=2 mmol/L 10/12/2023 12:01 PM CDT [facility] Blood BLOOD SPECIMEN / Unknown Venipuncture / Unknown 10/12/2023 11:36 AM CDT 10/12/2023 11:48 AM CDT Halina Barraza MD LAB - CHEMISTRY ROYCE KLINE Performing Organization Address [facility] Co de Phone Number [facility] [address] [place] [address] * ECHO COMPLETE W CONTRAST (10/12/2023 11:00 [...] 3.0 cm [facility] CV FUJ I PACS [id number] 6.792 cm [facility] CV FUJ I PACS [id number] 7.103 cm [facility] CV FUJ I PACS [...] poor acoustic windows and patient intubated. Nas Mncally MD ECHO CUPID * LIPASE BLOOD (10/12/2023 10:28 AM CDT) Lipase 6 <60 U/L 10/12/2023 10:53 AM CDT [facility] Blood BLOOD SPECIMEN / Unknown Venipuncture / Unknown 10/12/2023 10:28 AM CDT 10/12/2023 10:34 AM CDT Aneta Campbell DO LAB - CHEMISTRY O RDERABLES Performing Organization Address City/[facility]/ZIP Co de Phone Number [facility] [address] [place] [address] * CULTURE BLOOD (10/12/2023 8:52 AM CDT) Only the most recent of52 resultswithin the time period is included. Culture No growth day 5 UMESH 10/17/2023 9:[address] [facility] MICRO[facility]OLOG[facility] Blood PERIPHERAL BLOOD / Unknown Lab Venipuncture / Unknown 10/12/2023 8:52 AM CDT 10/12/2023 8:52 AM CDT Halina Barraza MD LAB - MICROBIOLOGY O RDERABLES Performing Organization Address [facility] Co de Phone Number [facility]CRO[facility] [address] [place] [address], [facility] [phone] * (ABNORMAL) COAGULATION PANEL W D-DIMER (10/12/2023 5:03 AM CDT) PT 15.6(H) 12.1 - 14.8 sec 10/12/2023 5:45 AM CDT [facility] INR 1.2(H) 0.9 - 1.1 10/12/2023 5:45 AM CDT [facility] PTT 32.6 23.0 - 38.4 sec 10/12/2023 5:45 AM CDT [facility] Fibrinogen 546(H) 200 - 400 mg/dL 10/12/2023 5:45 AM CDT [facility] D-Dimer 0.91(H) 0.27 - 0.50 ug/mL FEU 10/12/2023 5:45 AM CDT [facility] Platelet Count 113(L) 150 - 420 x10E9/L 10/12/2023 5:45 AM CDT [facility] Blood BLOOD SPECIMEN / Unknown Lab Venipuncture / Unknown 10/12/2023 5:03 AM CDT 10/12/2023 5:13 AM CDT Narrative [facility] - 10/12/2023 5:45 AM CDT [...] DERABLES [facility] [address] [place] [address] * EGD (05/12/2023 2:04 PM HOSPITAL ACCOUNT MANAGER) Report Endoscopy POC Endoscopy Department Report _ [...] ?- No specimens collected as patient on [facility]. Recommendation: ? - Patient has a contact [...] Procedure Code(s): ? --- Professional --- ? 88194, Esophagogastroduo denoscopy, flexible, transoral; diagnostic, ? including collection of specimen(s) by brushing or washing, when ? performed (separate procedure) Diagnosis Code(s): ?--- Professional --- ?K74.60, Unspecified cirrhosis of liver ?I85.10, Secondary esophageal varices without ?bleeding ?K29.70, Gastritis, unspecified, without bleeding ?K29.80, Duodenitis without bleeding CPT copyright 2022 [employer]. All rights reserved. The codes documented in this report are preliminary and upon boat designer review may be revised to meet current compliance requirements. Twin Miller, 05/12/2023 2:44:06 PM Note Initiated On: 05/12/2023 2:04 PM Number of Addenda: 0 ? [facility] ? [address] [place] [address] [facility] 05/12/2023 2:04 PM HOSPITAL ACCOUNT MANAGER Twin Miller MD GI PROCEDURE O RDERABLES Performing Organization Address [facility] Co de Phone Number [facility] * PT-INR (03/08/2023 1:49 PM CDT) Only the most recent of17 resultswithin the time period is included. Pathologist [facility] INR 1.0 [facility] Comment: Reference Range ? 0.9-1.1 Moderate-intensity Warfarin Therapy 2.0-3.0 Higher-intensity Warfarin Therapy ?? 3.0-4.0 PT 11.0 9.0 - 11.5 sec [facility] Comment: For additional information, please refer to http://education.[email or web address]/faq/[email or web address] (This link is being provided for informational/ educational purposes only.) REPORT COMMENT: FASTING:NO Test Performed at: [employer] ??[phone] DORIAN CRUZ MD 03/08/2023 1:49 PM CDT 03/08/2023 1:50 PM CDT Jackelyn Licona MD LAB - COAGULATION OR DERABLES Performing Organization Address City/[facility]/ZIP Co de Phone Number [address] [address] * (ABNORMAL) CBC W/O DIFFERENTIAL (03/08/2023 1:47 PM CDT) Only the most recent of19 resultswithin the time period is included. Pathologist [facility] White Blood Cell Count 11.4(H) 3.8 - [...] 12.5 fL [facility] Comment: Test Performed at: [employer] ??[phone] CELSA SINGLETON,PHD 03/08/2023 1:47 PM CDT 03/08/2023 1:47 PM CDT Jackelyn Licona MD LAB - HEMATOLOGY ORD ERABLES [facility] [address] [place] [address] * PATHOLOGY TISSUE (10/07/2022 1:53 PM CDT) Only the most recent of2 resultswithin the time period is included. [facility] Case Report Surgical Pathology Report ? Case: [id number] ? Authorizing Provider: ??Jackelyn Licona MD ? Collected: ? 10/07/2022 01:53 PM ? Ordering Location: ? [facility] ?Received: ?10/07/2022 02:55 PM ? Pathologist: ? Paz Claudio MD ? Specimen: ?Gastric, gastric biopsies r/o h. pylori ? 10/08/2022 2:17 PM [facility] PATH[facility] LAB Final Diagnosis Stomach, biopsy (A): - Antral and oxyntic mucosa: proton pump inhibitor effect in oxyntic mucosa; negative for inflammation and Helicobacter on H and E stain 10/08/2022 2:17 PM [facility] Microscopic Description and Comment Microscopic examination substantiates the final diagnosis. 10/08/2022 2:17 PM [facility] LAB Clinical History The patient is a 71 years old man with portal hypertension, rule out esophageal varices. Operative findings/procedure: Erythematous mucosa in the antrum, biopsied. No polyps mentioned. 10/08/2022 2:17 PM [facility] Gross Description The requisition and specimen(s) are identified with the patient's name José Miguel Keys. Received in formalin, specimen A , are 6 pink-poe tissues, 0.1-0.4 cm in greatest dimension and 1.4 x 0.2 x 0.1 cm in aggregate, submitted in toto in cassette A1. DF 10/08/2022 2:17 PM [facility] LAB Disclaimer The performance characteristics of all immunohistochemical and indirect immunofluorescence stains (if any) cited in this report were determined by the Histopathology Laboratory of [facility]. Some of these tests were developed [...] attending (teaching) pathologist. 10/08/2022 2:17 PM CDT [facility] Embedded Images 10/08/2022 2:17 PM CDT [facility] Biopsy, NOS GASTRIC CONTENTS SPECIMEN / Unknown 10/07/2022 1:53 PM CDT 10/07/2022 2:55 PM CDT Comment:Pre-op diagnosis: Liver cirrhosis secondary to RAYGOZA (CMS/HCC) [K75.81, K74.60] Jackelyn Licona MD LAB - PATHOLOGY/CYTO LOGY ORDERABLES [facility] [address] [address], [facility] [phone] * EGD (10/07/2022 1:17 PM CDT) Report [...] Procedure Code(s): ? --- Professional --- ? [address], Esophagogastroduod enoscopy, flexible, transoral; with biopsy, ? single or multiple Diagnosis Code(s): ?--- Professional --- ?K76.6, Portal hypertension ?K31.89, Other diseases of stomach and duodenum ?K26.4, Chronic or unspecified duodenal ulcer with ?hemorrhage CPT copyright 2019 [employer]. All rights reserved. The codes documented in this report are preliminary and upon boat designer review may be revised to meet current compliance requirements. Jackelyn Licona, 10/07/2022 2:23:01 PM Note Initiated On: 10/07/2022 1:17 PM Number of Addenda: 0 ? [facility] ? [address] [employer] 10/07/2022 1:17 PM CDT Jackelyn Licona MD GI PROCEDURE ORDERAB LES [facility] * (ABNORMAL) ERYTHROCYTE SEDIMENTATION RATE (08/23/2022 8:24 PM CDT) Only the most recent of7 resultswithin the time period is included. Erythrocyte Sedimentation Rate Westergren 65(H) 0 - 20 MM/HR 08/23/2022 8:45 PM CDT [facility] Blood BLOOD SPECIMEN / Unknown Venipuncture / Unknown 08/23/2022 8:24 PM CDT 08/23/2022 8:32 PM CDT Neo Horne MD LAB - HEMATOLOGY ORD ERABLES [facility] [address] [place] [address], [facility] [phone] * VAS RIGHT VENOUS DUPLEX LE (08/23/2022 1:53 PM CDT) Anatomical Region Laterality Modality Lower Extremity Intravascular Ul trasound 08/23/2022 1:33 PM CDT Narrative Procedure Note Ja Khoury MD - 08/24/2022 Margoth Gustafson PA-C VASCULAR LAB ORDER [place] * HI LIVER ELASTOGRAPHY (08/31/2020 9:47 PM CDT) Narrative [...] patients with nonalcoholic fatty liver disease. Gastroenterology 2019;156:2228-9454. Rico MS, Lina R, Van Jasen ML, [...] FIB4 score (Davyduke et al. Hepat[employer] Communications 2019;3:9668-1747) or NAFLD Fibrosis score (Lutz et al. Clinical Gastroenterology and Hepatology 2019;17:6356-4604. from routine clinical data. 3. Liver stiffness [...] change as additional supporting data becomes available. [email or web address] Jackelyn Licona MD PROCEDURE/MINOR SURG ICAL ORDERABLES * (ABNORMAL) CBC W DIFF (EXTERNAL RESULT ENTRY) (08/20/2020) Pathologist [facility] WBC (EXTERNAL RESULT) 8.1 3.8 - 10.8 [...] PELVIS 1 OR 2VW (08/05/2020 9:55 AM HOSPITAL ACCOUNT MANAGER) Only the most recent of4 resultswithin the time period is included. Anatomical Region Laterality Modality Pelvis Radiographic Shama ging 08/05/2020 10:0 3 AM HOSPITAL ACCOUNT MANAGER Impressions 08/05/2020 10:07 AM HOSPITAL ACCOUNT MANAGER IMPRESSION: 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 This report was electronically signed by SILAS NGUYỄN MD ??on 08/05/2020 10:07 AM . Narrative 08/05/2020 10:07 AM HOSPITAL ACCOUNT MANAGER Exam: 1. XR PELVIS 1 view 2. [...] RIGHT 2VW OR MORE (08/05/2020 9:55 AM HOSPITAL ACCOUNT MANAGER) Only the most recent of5 resultswithin the time period is included. Anatomical Region Laterality Modality Pelvis, Lower Extremity Radiogra [facility] 08/05/2020 10:0 3 AM HOSPITAL ACCOUNT MANAGER Impressions 08/05/2020 10:07 AM HOSPITAL ACCOUNT MANAGER IMPRESSION: 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 This report was electronically signed by SILAS NGUYỄN MD ??on 08/05/2020 10:07 AM . Narrative 08/05/2020 10:07 AM HOSPITAL ACCOUNT MANAGER Exam: 1. XR PELVIS 1 view 2. [...] IMAGING ORDERABLES * EGD (07/03/2020 10:03 AM HOSPITAL ACCOUNT MANAGER) Report Endoscopy POC Endoscopy Department Report _ Patient Name: José Miguel Keys ?Procedure Date: 07/03/2020 10:03 AM ? [...] Procedure Code(s): ? --- Professional --- ? 04037, Esophagogastroduod enoscopy, flexible, transoral; with biopsy, ? single or multiple Diagnosis Code(s): ?--- Professional --- ?K22.8, Other specified diseases of esophagus ?K31.89, Other diseases of stomach and duodenum ?K74.60, Unspecified cirrhosis of liver CPT copyright 2019 [employer]. All rights reserved. The codes documented in this report are preliminary and upon boat designer review may be revised to meet current compliance requirements. Jackelyn Licona, 07/03/2020 10:32:16 AM Note Initiated On: 07/03/2020 10:03 AM Number of Addenda: 0 ? [facility] ? [address] [place] [address] [facility] 07/03/2020 10:0 3 AM HOSPITAL ACCOUNT MANAGER Jackelyn Licona MD GI PROCEDURE ORDERAB LES [facility] * XR THORACIC SPINE 2VW (02/07/2020 [...] perform a manual review. Test Performed at: [employer] [facility] [address] [place], [place] ??[phone] LEROY LOPEZ DO,MPH 08/20/2019 3:27 PM CDT 08/20/2019 3:28 PM CDT Jackelyn Licona MD LAB - HEMATOLOGY ORD ERABLES Performing Organization Address City/[facility]/ZIP Co de Phone Number [facility] [address] [place] [address] * CARDIAC RHYTHM STRIP ORDER (05/07/2019 6:01 PM HOSPITAL ACCOUNT MANAGER) Only the most recent of2 resultswithin the time period is included. Narrative 05/07/2019 6:01 PM HOSPITAL ACCOUNT MANAGER Ordered by an unspecified provider. Scanned Document CARDIAC SERVICES ORD ERABLES * PLATELET COUNT AUTO (05/05/2019 2:15 AM HOSPITAL ACCOUNT MANAGER) Pathologist [facility] Platelet Count 157 153 - 416 x10E9/L 05/05/2019 3:03 AM HOSPITAL ACCOUNT MANAGER [facility] Blood BLOOD SPECIMEN / Unknown Lab Venipuncture / Unknown 05/05/2019 2:15 AM HOSPITAL ACCOUNT MANAGER 05/05/2019 2:38 AM HOSPITAL ACCOUNT MANAGER Michelle Pratt MD LAB - HEMATOLOGY OR DERABLES Performing Organization Address [facility] Co de Phone Number [facility] [address] [place], [place] [id number] * (ABNORMAL) VANCOMYCIN LEVEL TROUGH (05/03/2019 1:21 PM HOSPITAL ACCOUNT MANAGER) Only the most recent of8 resultswithin the time period is included. Pathologist [facility] Vancomycin Trough 22.9(H) 10.0 - 20.0 ug/mL 05/03/2019 2:04 PM HOSPITAL ACCOUNT MANAGER [facility] Blood BLOOD SPECIMEN / Unknown Lab Venipuncture / Unknown 05/03/2019 1:21 PM HOSPITAL ACCOUNT MANAGER 05/03/2019 1:40 PM HOSPITAL ACCOUNT MANAGER Raysa Nevarez MD LAB - CHEMISTRY ROYCE KLINE Performing Organization Address [facility] Co de Phone Number [facility] [address] [place] [address] * CULTURE FLUID+GRAM STAIN (05/02/2019 2:24 PM HOSPITAL ACCOUNT MANAGER) Only the most recent of2 resultswithin the time period is included. Pathologist [facility] Culture No growth UMESH 05/09/2019 6:44 AM HOSPITAL ACCOUNT MANAGER [facility] MICROBIOLOGY Gram Stain Rare Polymorphonuclear cells 05/09/2019 6:44 AM [facility]CRO[facility] Gram Stain No organisms seen 019 6:44 AM [facility]CRO[facility] Fluid BODY FLUID SPECIMEN / Unknown Collection / Unknown 05/02/2019 2:24 PM HOSPITAL ACCOUNT MANAGER 05/02/2019 3:22 PM HOSPITAL ACCOUNT MANAGER Comment:Pre-op diagnosis: Diagnosis unknown [R69] Narrative [facility] - 05/09/2019 6:44 AM HOSPITAL ACCOUNT MANAGER Surgical Description: Post Irrigation Right Hip Fluid Larry Alexander MD LAB - MICROBIOLOGY ORDERABLES Performing Organization Address [facility] [facility] de Phone Number [facility] [address] [place] [address], [facility] [phone] * CULTURE ANAEROBE (05/02/2019 2:24 PM HOSPITAL ACCOUNT MANAGER) Only the most recent of10 resultswithin the time period is included. Culture No anaerobic organisms isolated UMESH 05/07/2019 12:40 PM [facility] MICROBIOLOG[facility] Fluid BODY FLUID SPECIMEN / Unknown Collection / Unknown 05/02/2019 2:24 PM HOSPITAL ACCOUNT MANAGER 05/02/2019 3:22 PM HOSPITAL ACCOUNT MANAGER Comment:Pre-op diagnosis: Diagnosis unknown [R69] Narrative [facility] - 05/07/2019 12:40 PM HOSPITAL ACCOUNT MANAGER Surgical Description: Post Irrigation Right Hip Fluid Larry Alexander MD LAB - MICROBIOLOGY ORDERABLES Performing Organization Address [facility] de Phone Number [facility] [address] [place] [address], [facility] [phone] * IV PLACEMENT PERFORMABLE (05/02/2019 2:15 PM HOSPITAL ACCOUNT MANAGER) Narrative Puneet Kohler APRN-CRNA - 05/02/2019 2:15 PM HOSPITAL ACCOUNT MANAGER Puneet Kohler APRN-CRNA ? 05/02/2019 ??2:16 PM Peripheral IV Line Placement: Patient Location: ??OR Procedure: IV start (42370). Procedure Section: ?? Skin Prep: Chloraprep. Orientation: [...] RBC UNIT(S), 2 Units (05/02/2019 2:15 PM HOSPITAL ACCOUNT MANAGER) Product Code [id number] [facility] Unit Donor # [id number] [facility] B[facility] [place] Donor Type A [facility] Rh Type Unit POS [facility] Unit Status Ret'd [facility] ABO Rh Type Unit APOS [facility] Donor Unit Expiration Date [facility] Blood Type Barcode 6200 [facility] Product Code [id number] [facility] Unit Donor # [id number] [facility] Donor Type A [facility] Rh Type Unit POS [facility] Unit Status Ret'd [facility] ABO Rh Type Unit APOS [facility] Donor Unit Expiration Date [facility] Blood Type Barcode 6200 [facility] Blood Bank BLOOD SPECIMEN / Unknown 05/02/2019 2:15 PM HOSPITAL ACCOUNT MANAGER Larry Alexander MD LAB - BLOOD BANK OR DERABLES [facility] [address] [place] [address] * TYPE + SCREEN PANEL (05/02/2019 2:07 PM HOSPITAL ACCOUNT MANAGER) Only the most recent of10 resultswithin the time period is included. ABO A 05/02/2019 2:34 PM HOSPITAL ACCOUNT MANAGER [facility] Rh Type Positive 05/02/2019 2:34 PM HOSPITAL ACCOUNT MANAGER [facility] Comment:History checked. Antibody Screen Negative 05/02/2019 2:34 PM HOSPITAL ACCOUNT MANAGER [facility] Blood Bank BLOOD SPECIMEN / Unknown Venipuncture / Unknown 05/02/2019 2:07 PM HOSPITAL ACCOUNT MANAGER 05/02/2019 2:07 PM HOSPITAL ACCOUNT MANAGER Larry Alexander MD LAB - BLOOD BANK OR DERABLES [facility] [address] [place] [address], [facility] [phone] * ETT LINE PERFORMABLE (05/02/2019 2:06 PM HOSPITAL ACCOUNT MANAGER) Narrative Puneet Kohler APRN-CRNA - 05/02/2019 2:06 PM HOSPITAL ACCOUNT MANAGER Puneet Kohler APRN-CRNA ? 05/02/2019 ??2:07 PM Endotracheal Tube Placement: ? Patient Location: OR. Intubation Event Date/Time: ??05/02/2019 1:21 PM Procedure: intubation ([id number]). Procedure Section: ?? Sedation: under general anesthesia. [...] ECHOCARDIOGRAM 2D WITH DOPPLER (05/01/2019 6:07 PM HOSPITAL ACCOUNT MANAGER) 05/01/2019 6:07 PM HOSPITAL ACCOUNT MANAGER Narrative [facility] CARDIOLOGY - 05/02/2019 9:34 AM HOSPITAL ACCOUNT MANAGER [facility] [address] [place] [address] Transthoracic Echocardiogram 2D, M-mode, Doppler, and Color Doppler Patient: JOSÉ MIGUEL KEYS MR number: [id number] Height: 71 in Weight: 219.6 lb BSA: 2.2 m?? Study date: 01-May-2019 : 1950 Age: 68 years Gender: Male Race: Allergies: PENICILLINS, LEVOFLOXACIN, SCOPOLAMINE Kosher Sealer: ??Gómez Finch Referring Physician: ??Kev Ordonez MD [...] Procedure Note Constantino Sims MD - 05/02/[address] [address] Transthoracic Echocardiogram 2D, M-mode, Doppler, and Color Doppler Patient: JOSÉ MIGUEL KEYS MR number: [id number] Height: 71 in Weight: 219.6 lb BSA: 2.2 m?? Study date: 01-May-2019 : 1950 Age: 68 years Gender: Male Race: Allergies: PENICILLINS, LEVOFLOXACIN, SCOPOLAMINE Kosher Sealer: Gómez Finch Referring Physician: Kev Ordonez MD [...] 02-May-2019 09:37:01 Kev Ordonez MD ECHO ORDERABLES [facility] [address] [place] [address] * EKG 12-LEAD (05/01/2019 3:54 PM HOSPITAL ACCOUNT MANAGER) Only the most recent of11 resultswithin the time period is included. Ventricular Rate 82 BPM [facility] MUSE Atrial Rate 312 BPM [facility] MUSE QRS Duration ms 90 ms [facility] MUSE Q-T Interval ms 380 ms [facility] MUSE QTC Calculation (Bezet) 443 ms [facility] MUSE Calculated R Solo -9 degrees [facility] MUSE Calculated T Solo 42 degrees HC MUSE Interpretation EKG ATRIAL FIBRILLATION WITH PREMATURE VENTRICULAR OR ABERRANTLY CONDUCTED COMPLEXES ABNORMAL ECG Confirmed by MD Jane, Zhang ([id number]) on 05/02/2019 8:32:37 AM [facility] MUSE 05/01/2019 3:54 PM HOSPITAL ACCOUNT MANAGER 05/02/2019 8:32 AM HOSPITAL ACCOUNT MANAGER Kev Ordonez MD ECG ORDERABLES Performing Organization Address [facility]/ZIP Co de Phone Number [facility] MUSE * CULTURE ABSCESS+GRAM STAIN (04/29/2019 9:41 PM HOSPITAL ACCOUNT MANAGER) Culture No growth UMESH 05/03/2019 8:32 AM HOSPITAL ACCOUNT MANAGER [facility] Gram Stain Rare Polymorphonuclear cells 05/03/2019 8:32 AM HOSPITAL ACCOUNT MANAGER [facility] Gram Stain No organisms seen 019 8:32 AM HOSPITAL ACCOUNT MANAGER [facility] Microbiology ENTIRE HIP REGION / Unknown Collection / Unknown 04/29/2019 9:41 PM HOSPITAL ACCOUNT MANAGER 04/29/2019 11:20 PM HOSPITAL ACCOUNT MANAGER Armida Gomez MD LAB - MICROBIOLOGY O RDSP Performing Organization Address [facility] Co de Phone Number [facility] [address] [place] [address], [facility] [phone] * (ABNORMAL) CULTURE VRE (04/29/2019 9:41 PM HOSPITAL ACCOUNT MANAGER) Culture Growth of Enterococcus species vancomycin-resis tant (VRE)(A) UMESH 05/01/2019 6:09 AM [facility] MICROBIOLOGY Microbiology ENTIRE RECTUM / Unknown Collection / Unknown 04/29/2019 9:41 PM HOSPITAL ACCOUNT MANAGER 04/29/2019 11:20 PM HOSPITAL ACCOUNT MANAGER Narrative [facility] - 05/01/2019 6:09 AM HOSPITAL ACCOUNT MANAGER For vancomycin-resistant enterococci (VRE), contact precautions are required. For any questions, call Infection Prevention. Yasmany Oh MD LAB - MICROBIOLOGY O RIO Performing Organization Address City/[facility]/ZIP Co de Phone Number [facility] [address] [place] [address], [facility] [phone] * CULTURE MRSA (04/29/2019 9:41 PM HOSPITAL ACCOUNT MANAGER) Only the most recent of2 resultswithin the time period is included. Culture Negative for methicillin-resist ant Staphylococcus aureus (MRSA) UMESH 05/01/2019 5:24 AM HOSPITAL ACCOUNT MANAGER [facility] Microbiology ENTIRE RECTUM / Unknown Collection / Unknown 04/29/2019 9:41 PM HOSPITAL ACCOUNT MANAGER 04/29/2019 11:20 PM HOSPITAL ACCOUNT MANAGER Yasmany Oh MD LAB - MICROBIOLOGY O RDERABLES [facility] MICRO[facility] [address] [place], [place] [address], [facility] [phone] * XR CHEST FOR PICC PLMT (Place [...] Event Date/Time: ??02/08/2019 11:21 AM Procedure: intubation ([id number]). Procedure Section: ?? Sedation: under general anesthesia. [...] Staff Section ?? Anesthesia Provider: Zbigniew Mayen APRN-[facility], Performed the procedure Provider #1: Jeffrey Angelo MD. Jeffrey Angelo MD GENERAL ANESTHESIA ORDERABLES * (ABNORMAL) CULTURE WOUND+GRAM STAIN (02/04/2019 11:29 AM CDT) Culture Rare Staphylococcus aureus methicillin-resistan t (MRSA)(A) UMESH 02/06/2019 11:57 AM T [facility] MICROBIOLOG[facility] Gram Stain Heavy Polymorphonuclear cells 02/06/2019 11:57 AM T [facility] Gram Stain Moderate Red blood cells 02/06/2019 11:57 AM T [facility] Gram Stain No organisms seen 019 11:57 AM T [facility] MICROBIOLOGY Microbiology ENTIRE HIP REGION / Unknown Collection / Unknown 02/04/2019 11:29 AM CDT 02/04/2019 12:01 PM CDT Narrative [facility] MICROBIOLOGY - 02/06/2019 11:57 AM CDT [...] MICROBIOLOGY [address] [place] [address], [facility] [phone] * (ABNORMAL) CULTURE TISSUE+GRAM STAIN (02/04/2019 11:29 AM CDT) Only the most recent of2 resultswithin the time period is included. Culture Rare Staphylococcus aureus methicillin-resistan t (MRSA)(AA) UMESH 02/06/2019 11:37 AM [facility] MICROBIOLOGY Gram Stain Moderate Polymorphonuclear cells 02/06/2019 11:37 AM [facility] MICROBIOLOG[facility] Gram Stain Heavy Red blood cells 02/06/2019 11:37 AM T [facility] Gram Stain No organisms seen 019 11:37 AM [facility] MICROBIOLOGY Microbiology ENTIRE HIP REGION / Unknown Collection / Unknown 02/04/2019 11:29 AM CDT 02/04/2019 12:08 PM CDT Narrative [facility] - 02/06/2019 11:37 AM CDT [...] Larry Alexander MD LAB - MICROBIOLOGY ORDERABLES [facility] MICROBI[facility] [address] [place] [address], [facility] [phone] * ENDOTRACHEAL TUBE NOTE (02/04/2019 11:02 AM CDT) Narrative Mikael Rosales APRN-CRNA - 02/04/2019 11:02 AM CDT Mikael Rosales APRN-CRNA ? 02/04/2019 11:03 AM Endotracheal Tube Placement: ? Patient Location: OR. Intubation Event Date/Time: ??02/04/2019 10:51 AM Procedure: intubation ([id number]). Procedure Section: ?? Sedation: under general anesthesia. [...] 11.6 sec 02/04/2019 9:12 AM CDT [facility] INR 1.0 0.9 - 1.1 02/04/2019 9:12 AM CDT [facility] PTT 26.4 21.0 - 32.0 sec 02/04/2019 9:12 AM CDT [facility] Blood BLOOD SPECIMEN / Unknown 02/04/2019 7:37 AM CDT 02/04/2019 9:03 AM CDT Narrative [facility] - 02/04/2019 9:12 AM CDT Conventional Warfarin Anticoagulant Therapy: INR Reference Range: ??2.0-3.0 Intensive Warfarin Anticoagulant Therapy: INR Reference Range: ? 2.5-3.5 Heparin Therapeutic Range for PTT: 50.5 - 74.3 seconds. Michelle Pratt MD LAB - COAGULATION O RDERABLES Performing Organization Address City/State/[facility] Co de Phone Number [facility] [address] [place] [address] * (ABNORMAL) URINALYSIS REFLEX MICROSCOPIC REFLEX CULTURE (02/04/2019 6:17 AM CDT) Color UA Yellow Straw, Yellow 02/04/2019 6:43 AM CDT [facility] Clarity UA Cloudy(A) Clear 02/04/2019 6:43 AM CDT [facility] Glucose UA Negative Negative 02/04/2019 6:43 AM CDT [facility] Bilirubin UA Negative Negative 02/04/2019 6:43 AM CDT [facility] Ketone UA Trace(A) Negative 02/04/2019 6:43 AM CDT [facility] Specific [place] UA 1.021 1.005 - 1.030 02/04/2019 6:43 AM CDT [facility] Blood UA Negative Negative 02/04/2019 6:43 AM CDT [facility] pH UA 5.0 5.0 - 8.0 pH 02/04/2019 6:43 AM CDT [facility] Protein UA Negative Negative 02/04/2019 6:43 AM CDT [facility] Urobilinogen UA Negative Negative mg/dL 02/04/2019 6:43 AM CDT [facility] Nitrite UA Negative Negative 02/04/2019 6:43 AM CDT [facility] Leukocyte UA Negative Negative 02/04/2019 6:43 AM CDT [facility] Urine Microscopy Urine microscopy not indicated 02/04/2019 6:43 AM CDT [facility] Reflex Status Culture not indicated 02/04/2019 6:43 AM CDT [facility] Urine URINE SPECIMEN OBTAINED BY CLEAN CATCH PROCEDURE / Unknown Collection / Unknown 02/04/2019 6:17 AM CDT 02/04/2019 6:24 AM CDT Narrative [facility] - 02/04/2019 6:43 AM CDT Ascorbic Acid can cause false negative urine strip tests for blood, glucose, nitrite, and bilirubin. Yasmany Oh MD LAB - URINALYSIS ORD ERABLES Performing Organization Address City/State/[facility] Co de Phone Number [facility] [address] [place] [address] * XR FEMUR 2 VW RIGHT (02/03/2019 [...] * MITOCHONDRIAL ANTIBODY SCREEN (06/02/2018 3:03 PM HOSPITAL ACCOUNT MANAGER) Mitochondrial M2 Antibody <20.0 [facility] Comment: ?Reference Range: ?NEGATIVE: ??< OR = 20.0 ?EQUIVOCAL: 20.1-24.9 ?POSITIVE: ??> OR = 25.0 Test Performed at: [employer]/[facility] [address] [place], [place] ??[address] ROSANNA BRYSON MD,PHD,ARIAS Blood BLOOD SPECIMEN / Unknown 06/02/2018 3:03 PM HOSPITAL ACCOUNT MANAGER 06/02/2018 3:03 PM HOSPITAL ACCOUNT MANAGER Aldo Vásquez MD LAB - CHEMISTRY ORDERABLES [facility] [address] [place] [address] * CARDIAC PROCEDURE ORDER (11/22/2017 4:17 PM CDT) Narrative 11/22/2017 4:17 PM CDT Ordered by an unspecified provider. Scanned Document CARDIAC SERVICES ORD ERABLES * (ABNORMAL) RBC MORPHOLOGY (09/19/2017 2:43 AM CDT) Only the most recent of7 resultswithin the time period is included. Platelet Estimate Adequate Adequate 09/19/2017 5:26 AM CDT [facility] Anisocytosis 1+(A) None 09/19/2017 5:26 AM CDT [facility] Microcytes Few(A) None 09/19/2017 5:26 AM CDT [facility] Macrocytosis 1+(A) None 09/19/2017 5:26 AM CDT [facility] Hypochromia 1+(A) None 09/19/2017 5:26 AM CDT [facility] Schistocytes Occasional(A ) None 09/19/2017 5:26 AM T [facility] Ovalocytes 1+(A) None 09/19/2017 5:26 AM T [facility] Blood BLOOD SPECIMEN / Unknown Venipuncture / Unknown 09/19/2017 2:43 AM CDT 09/19/2017 3:39 AM CDT Rebecca Melendez APRN-[employer] LAB - HEMATOLOGY ORDERABLES [address] [phone] * EGD (09/15/2017 8:58 AM CDT) Report [...] Procedure Code(s): ? --- Professional --- ? [address], Esophagogastroduoden oscopy, flexible, transoral; with directed ? placement of percutaneous gastrostomy tube Diagnosis Code(s): ?--- Professional --- ?R13.10, Dysphagia, unspecified ?Z43.1, Encounter for attention to gastrostomy ?R63.3, Feeding difficulties CPT copyright 2016 [employer]. All rights reserved. The codes documented in this report are preliminary and upon boat designer review may be revised to meet current compliance requirements. Louis Mcconnell MD 09/15/2017 10:44:23 AM Note Initiated On: 09/15/2017 8:58 AM Number of Addenda: 0 ? [facility] ? [address] [place] [address] [facility] 09/15/2017 8:58 AM CDT Louis Mcconnell MD GI PROCEDURE ORDERAB LES Performing Organization Address [facility] Co de Phone Number [facility] * PTT [facility] (09/10/2017 5:49 AM CDT) Only the most recent of7 resultswithin the time period is included. APTT 29.7 23.0 - 38.4 Seconds 09/10/2017 5:58 AM CDT [facility] Comment: Suggested therapeutic range for full dose I.V. heparin therapy for venous thromboembolism is 66.0-91.0 seconds. Blood BLOOD SPECIMEN / Unknown Lab Venipuncture / Unknown 09/10/2017 5:49 AM CDT 09/10/2017 5:50 AM CDT Yogesh Duncan MD LAB - COAGULATION OR DERABLES Performing Organization Address [facility] Co de Phone Number [address] [phone] * (ABNORMAL) GLUCOSE ACCUCHECK (09/09/2017 11:31 PM CDT) Only the most recent of156 resultswithin the time period is included. Glucose, Fingerstick 127(H) 70-115mg/d L mg/dL [facility] ([facility]) Comment: Insulin Protocol [employer] Developer: DEE ??GLENN 09/09/2017 11:3 1 PM CDT Jason Nash MD LAB - CHEMISTRY ROYCE KLINE Performing Organization Address [facility] Co de Phone Number [facility] ([facility]) * CULTURE AEROBIC (09/09/2017 3:41 PM CDT) Only the most recent of15 resultswithin the time period is included. Culture Aerobic Light Growth S [facility] Comment:Normal oropharyngeal robert Gram Stain light White Blood Cells [facility] Gram Stain No Organism Seen [facility] Bronchial Washings SPECIMEN FROM LUNG OBTAINED BY BRONCHIAL WASHING PROCEDURE / Unknown 09/09/2017 3:41 PM CDT 09/09/2017 3:47 PM CDT Narrative [facility] - 09/11/2017 6:41 AM CDT Specimen Type->Bronchial Washings Resulting Lab: ?? [facility] [address] [place] [address] PH: [phone] Jason aNsh MD LAB - MICROBIOLOGY O RDERABLES Performing Organization Address [facility] Co de Phone Number [address] [phone] * LD BODY FLUID ([facility] ONLY) (09/08/2017 12:35 PM CDT) Only the most recent of3 resultswithin the time period is included. LD Fluid 172 Not Established For Fluids Units/L [facility] Comment:The reference range and other method performance specifications have not been established for this fluid. The test result must be integrated into the clinical context for interpretation. Pleural fluid specimen (specimen) PLEURAL FLUID / Unknown 09/08/2017 12:35 PM CDT 09/08/2017 12:48 PM CDT Jason Nash MD LAB - BODY FLUID ORD ERABLES Performing Organization Address [facility] de Phone Number [address] [phone] * GLUCOSE BODY FLUID ([facility] ONLY) (09/08/2017 12:35 PM CDT) Only the most recent of2 resultswithin the time period is included. Glucose Fluid 145 Not Established For Fluids mg/dL [facility] Comment:The reference range and other method performance specifications have not been established for this fluid. The test result must be integrated into the clinical context for interpretation. Pleural fluid specimen (specimen) PLEURAL FLUID / Unknown 09/08/2017 12:35 PM CDT 09/08/2017 12:48 PM CDT Jason Nash MD LAB - BODY FLUID ORD ERABLES Performing Organization Address [facility] Co de Phone Number [address] [phone] * PROTEIN FLUID (09/08/2017 12:35 PM CDT) Only the most recent of3 resultswithin the time period is included. Pathologist [facility] Protein Fluid 1.5 Not Established For Fluids g/dL [facility] Comment:The reference range and other method performance specifications have not been established for this fluid. The test result must be integrated into the clinical context for interpretation. Pleural fluid specimen (specimen) PLEURAL FLUID / Unknown 09/08/2017 12:35 PM CDT 09/08/2017 12:48 PM CDT Jason Nash MD LAB - BODY FLUID ORD ERABLES Performing Organization Address City/[facility]/ZIP Co de Phone Number [address] [phone] * DIFFERENTIAL MANUAL FLUID (09/08/2017 12:35 PM CDT) Only the most recent of5 resultswithin the time period is included. Pathologist [facility] Segs % Fluid 60 % [facility] Lymphocytes % Fluid 37 % [facility] Monocytes % Fluid 3 % [facility] Pleural fluid specimen (specimen) PLEURAL FLUID / Unknown 09/08/2017 12:35 PM CDT 09/08/2017 12:48 PM CDT Narrative [facility] - 09/08/2017 2:08 PM CDT No reference ranges established for body fluid differential. Jason Nash MD LAB - BODY FLUID ORD SP Performing Organization Address City/[facility]/[place] [address], [facility] [phone] * (ABNORMAL) CELL COUNT FLUID (09/08/2017 12:35 PM CDT) Only the most recent of5 resultswithin the time period is included. Pathologist [facility] Color Fluid [place](A) Colorless, Straw [facility] Clarity Fluid Slighty Cloudy(A) Clear [facility] Volume Fluid 1.0 mL [facility] WBC Fluid 161 Reference Range Not Established /uL [facility] RBC Fluid 11,000 Reference Range Not Established /uL [facility] Differential Manual Differential to follow. [facility] Pleural fluid specimen (specimen) PLEURAL FLUID / Unknown 09/08/2017 12:35 PM CDT 09/08/2017 12:48 PM CDT Narrative [facility] - 09/08/2017 1:12 PM CDT No established reference ranges for WBC and RBC body fluid count. Jason Nash MD LAB - BODY FLUID ORD ERABLES [facility] [address] [phone] * CELL COUNT W DIFFERENTIAL FLUID (09/08/2017 12:35 PM CDT) Only the most recent of4 resultswithin the time period is included. Pleural fluid specimen (specimen) PLEURAL FLUID / Unknown 09/08/2017 12:35 PM CDT Narrative [facility] - 09/08/2017 2:08 PM CDT The following orders were created for panel order Body fluid cell count with diff. Procedure ? Abnormality ? Status ? --------- ? ------ ? Body fluid cell count wit...[[id number]] ??Abnormal ?Final result ? MANUAL DIFFERENTIAL FLUID[[id number]] ? Final result ? Please view results for these tests on the individual orders. Jason Nash MD LAB - BODY FLUID ORD ERABLES [facility] [address] * PH FLUID (09/08/2017 12:33 PM CDT) Only the most recent of4 resultswithin the time period is included. pH Fluid 7.610 Not Established For Fluids [facility] Comment:The reference range and other method performance specifications have not been established for this fluid. The test result must be integrated into the clinical context for interpretation. Fluid specimen (specimen) PLEURAL FLUID / Unknown 09/08/2017 12:33 PM CDT 09/08/2017 12:47 PM CDT Jason Nash MD LAB - BODY FLUID ORD ERABLES Performing Organization Address City/[facility]/ZIP Co de Phone Number [facility] OF [facility] [address] [phone] * CT CHEST WO CONTRAST (09/07/2017 1:52 [...] unchanged. Dictated by Keaton Gómez MD (residential plumber). I, Dr. Jason NAIK M.D. have personally [...] unchanged. Dictated by Keaton Gómez MD (residential plumber). I, Dr. Jason NAIK M.D. have personally reviewed and interpreted thisexamination/study. This report was electronically signed by Jason NAIK M.D. on09/07/2017 3:14 PM . Jason Nash MD CT ORDERABLES * PROCALCITONIN LEVEL (09/07/2017 4:28 AM CDT) Only the most recent of5 resultswithin the time period is included. Procalcitonin 0.47 [facility] Blood specimen (specimen) BLOOD SPECIMEN / Unknown 09/07/2017 4:28 AM CDT 09/07/2017 4:35 AM CDT Narrative [facility] - 09/07/2017 5:53 AM CDT The [...] Change in Procalcitonin Calculator is available at [email or web address] ?? If clinical picture has not improved and PCT remains high, reevaluate and consider treatment failure or other causes. Jason Nash MD LAB - CHEMISTRY ROYCE KLINE [address] [phone] * XR ABDOMEN KUB PORTABLE (09/06/2017 11:06 [...] Report dictated by Rohan Hopkins MD (residential plumber). I, Dr. SULLY RUANO M.D. have personally [...] Report dictated by Rohan Hopkins MD (residential plumber). I, Dr. SULLY RUANO M.D. have personally reviewed and interpretedthis examination/study. This report was electronically signed by SULLY RUAON M.D. on09/07/2017 12:20 PM . Rebecca L Al PREVENTIVE MEDICINE OFFICER-ARMORED CAR DRIVER DIAGNOSTIC IMAGIN G ORDERABLES * (ABNORMAL) BLOOD GASES ART COMPLETE [facility] OR (09/06/2017 4:21 PM CDT) Only the most recent of2 resultswithin the time period is included. pH Arterial 7.38 7.35 - 7.45 [facility] pCO2 Arterial 47(H) 35 - 45 mmHg [facility] pO2 Arterial 169(H) 71 - 95 mmHg [facility] HCO3 Arterial 27.0(H) 22.0 - 26.0 mmol/L [facility] TCO2 Arterial 28.4 25.0 - 29.0 mmol/L [facility] Base Excess Arterial 1.5 -2.0 - 2.0 mmol/L [facility] Hemoglobin Arterial 8.6(L) 13.5 - 17.5 g/dL [facility] Oxyhemoglobin Arterial 97.9 95.0 - 100.0 % [facility] Carboxyhemoglobin 0.3 0.0 - 3.0 % [facility] Methemoglobin 0.3 0.0 - 2.0 % [facility] FI O2 Arterial 50.0 % [facility] Ionized Calcium Whole Blood 1.14 mmol/L [facility] Adjusted Ionized Calcium 1.13(L) 1.19 - 1.34 mmol/L [facility] Sodium Whole Blood 140 135 - 145 mmol/L [facility] Potassium Whole Blood 4.2 3.5 - 5.5 mmol/L [facility] Chloride Whole Blood 109 101 - 111 mmol/L [facility] Glucose Whole Blood 134(H) 70 - 110 mg/dL [facility] Lactic Acid Whole Blood 2.5 0.5 - 3.4 mmol/L [facility] Blood specimen (specimen) 09/06/2017 4:21 PM CDT 09/06/2017 4:30 PM CDT Jason Nash MD LAB - BLOOD GASES OR DERABLES Performing Organization Address [facility] Co de Phone Number [address] [phone] * CULTURE LEGIONELLA (09/06/2017 2:05 PM CDT) Only the most recent of2 resultswithin the time period is included. Culture Legionella No Growth Legionella 1 week. [facility] Bronchial Washings SPECIMEN FROM LUNG OBTAINED BY BRONCHIAL WASHING PROCEDURE / Unknown 09/06/2017 2:05 PM CDT 09/06/2017 2:23 PM CDT Narrative [facility] - 09/13/2017 8:55 AM CDT Specimen Type->Bronchial Washings Resulting Lab: ?? [facility] [address] [place] [address] PH: [phone] Jason Nash MD LAB - MICROBIOLOGY O RDERABLES Performing Organization Address [facility] Co de Phone Number [address] [phone] * (ABNORMAL) DIGOXIN LEVEL (09/06/2017 12:02 PM CDT) Digoxin <0.3(L) 0.8 - 2.0 ng/mL [facility] Comment: The assistant dean of students of [employer] has stated that no immunoassay technique is suitable for quantitating digoxin in plasma/serum from patients on antibody fragment therapy. ? Blood specimen (specimen) BLOOD SPECIMEN / Unknown 09/06/2017 12:02 PM CDT 09/06/2017 12:08 PM CDT Bandar Mansfield MD LAB - CHEMISTRY OR DERABLES Performing Organization Address [facility]/ZIP Co de Phone Number [address] [phone] * TROPONIN I (09/06/2017 11:57 AM CDT) Only the most recent of2 resultswithin the time period is included. Troponin I 0.027 <0.032 ng/mL [facility] Blood specimen (specimen) BLOOD SPECIMEN / Unknown 09/06/2017 11:57 AM CDT 09/06/2017 12:08 PM CDT Bandar Mansfield MD LAB - CHEMISTRY OR DERABLES Performing Organization Address [facility]/[place] [address], [facility] [phone] * LDH BLOOD (09/02/2017 4:41 AM CDT) Only the most recent of2 resultswithin the time period is included. LDH Total 165 125 - 243 Units/L [facility] Blood specimen (specimen) BLOOD SPECIMEN / Unknown 09/02/2017 4:41 AM CDT 09/02/2017 4:47 AM CDT Poncho Bowers MD LAB - CHEMISTRY ORDE RAISA Performing Organization Address [facility] Co de Phone Number [address] [phone] * CT THORACENTESIS (09/01/2017 4:20 PM CDT) [...] included. Sodium Urine 57 Not Established mmol/L [facility] Urine specimen (specimen) URINE SPECIMEN OBTAINED BY CLEAN CATCH PROCEDURE / Unknown 09/01/2017 12:16 AM CDT 09/01/2017 12:37 AM CDT Delphine Waddell PREVENTIVE MEDICINE OFFICER-ARMORED CAR DRIVER LAB - URINE CHEM ISTRY ORDERABLES [address] [phone] * CREATININE URINE RANDOM (09/01/2017 12:16 AM CDT) Only the most recent of3 resultswithin the time period is included. Creatinine Urine 89 Not Established mg/dL [facility] Comment:Result obtained by nia [place]. Urine specimen (specimen) URINE SPECIMEN OBTAINED BY CLEAN CATCH PROCEDURE / Unknown 09/01/2017 12:16 AM CDT 09/01/2017 12:37 AM CDT [facility] - URINE CHEM ISTRY ORDERABLES Performing Organization Address [facility]/ZIP Co de Phone Number [address] [phone] * (ABNORMAL) HEMATOCRIT (08/31/2017 2:52 PM CDT) Pathologist [facility] Hematocrit 26.7(L) 39.0 - 50.0 % [facility] Blood specimen (specimen) BLOOD SPECIMEN / Unknown 08/31/2017 2:52 PM CDT 08/31/2017 3:00 PM CDT Narrative [facility] - 08/31/2017 3:07 PM CDT 2 hours after transfusion Delphine [facility] LAB - HEMATOLOGY ORDERABLES Performing Organization Address [facility] Co de Phone Number [address] [phone] * (ABNORMAL) HEMOGLOBIN (08/31/2017 2:52 PM CDT) [facility] Hemoglobin 8.0(L) 13.5 - 17.5 g/dL [facility] Comment:Confirmed by repeat analysis. Blood specimen (specimen) BLOOD SPECIMEN / Unknown 08/31/2017 2:52 PM CDT 08/31/2017 3:00 PM CDT [facility] - [facility] ORDERABLES Performing Organization Address [facility] Co de Phone Number [address] [phone] * CROSSMATCH RBC LEUKOREDUCED (08/31/2017 7:59 AM CDT) Only the most recent of4 resultswithin the time period is included. Pathologist [facility] Unit RBC-WBCD [id number] transfused [facility]AK[facility]) Unit ABO A [facility] Unit Rh POS [facility]) Unit Number [id number] [facility] ([facility]AKER) Unit Status Transfused [facility] (BEAKER) 08/31/2017 7:59 AM CDT 08/31/2017 7:59 AM CDT Narrative [facility] - 08/31/2017 7:59 AM CDT # of Units->1 Delphine Waddell APRN-ARMORED CAR DRIVER LAB - BLOOD BANK ORDERABLES [facility] ([facility]AKER) * CULTURE SPUTUM+GRAM STAIN (08/27/2017 9:53 AM CDT) Culture Sputum Light Growth [facility] Comment:Normal respiratory f paulie Gram Stain <10 per low power field Epithelial Cells per low power field [facility] Gram Stain >= 25 per low power field Polymorphonuclear Cells [facility] Gram Stain No Organism Seen [facility] Sputum specimen (specimen) SPUTUM / Unknown 08/27/2017 9:53 AM CDT 08/27/2017 10:17 AM CDT Narrative [facility] - 08/29/2017 11:32 AM CDT Specimen Type->Sputum Resulting Lab: ?? [facility]WORK MICROBIOLOGY [address] [place] [address] PH: [phone] Delphine Waddell APRN-ARMORED CAR DRIVER LAB - MICROBIOLO GY ORDERABLES Performing Organization Address City/[facility]/ZIP Co de Phone Number [address] [phone] * (ABNORMAL) HEPATIC FUNCTION PANEL (08/27/2017 5:01 AM CDT) Only the most recent of2 resultswithin the time period is included. Protein Total 6.3 6.0 - 8.3 g/dL [facility] Albumin 1.6(L) 3.4 - 5.0 g/dL [facility] Bilirubin Total 0.7 0.2 - 1.2 mg/dL [facility] Bilirubin Conjugated 0.5 0.0 - 0.5 mg/dL [facility] Bilirubin Unconjugated 0.2 Unconjugated Bilirubin is a calculated value: Reference ranges have not been established. mg/dL [facility] Alkaline Phosphatase 323(H) 40 - 150 Units/L [facility] ALT 23 0 - 55 Units/L [facility] AST 29 5 - 34 Units/L [facility] Albumin/Globulin Ratio 0.3(L) 1.1 - 2.3 [facility] Blood specimen (specimen) BLOOD SPECIMEN / Unknown 08/27/2017 5:01 AM CDT 08/27/2017 5:06 AM CDT Delphine Nadira PREVENTIVE MEDICINE OFFICER-ARMORED CAR DRIVER LAB - CHEMISTRY ORDERABLES [address] [phone] * CT CHEST ABDOMEN PELVIS W CONT [...] 5:30 PM. Dictated by Jorge Manning MD (Contracting Engineer). I, Dr. SAMANTHA PICHARDO M.D. have [...] at 5:30PM. Dictated by Jorge Manning MD (Contracting Engineer). I, Dr. SAMANTHA PICHARDO M.D. have personally reviewed and interpreted thisexamination/study. This report was electronically signed by SAMANTHA PICHARDO M.D. on 08/27/201711:20 AM . Yvonne Mcdonald MD CT ORDERABLES * CULTURE URINE (08/26/2017 2:20 PM CDT) Only the most recent of7 resultswithin the time period is included. Culture Urine <10,000 CFU/ML urogenital robert [facility] Comment: Urine specimen (specimen) URINE / Unknown 08/26/2017 2:20 PM CDT 08/26/2017 2:30 PM CDT Narrative [facility] - 08/28/2017 10:27 AM CDT Specimen Type->Urine Resulting Lab: ?? [facility] [address] [place] [address] PH: [phone] Resulting Lab: ?? [facility] [address] [place] [address] PH: [phone] Resulting Lab: ?? [facility] [address] [place] [address] PH: [phone] Nas Winters MD LAB - MICROBIOLOGY O RDERABLES Performing Organization Address City/[facility]/ZIP Co de Phone Number [address] [phone] * (ABNORMAL) CK + CKMB PANEL (08/26/2017 2:20 PM CDT) CK Total 19(L) 30 - 200 Units/L [facility] CK-MB 0.9 0.0 - 6.6 ng/mL [facility] Blood specimen (specimen) BLOOD SPECIMEN / Unknown 08/26/2017 2:20 PM CDT 08/26/2017 2:28 PM CDT Nas Winters MD LAB - CHEMISTRY ROYCE KLINE Performing Organization Address City/[facility]/ZIP Co de Phone Number [address] [phone] * (ABNORMAL) BLOOD GASES BRADY (08/26/2017 2:20 PM CDT) Only the most recent of7 resultswithin the time period is included. pH Mixed Venous 7.42(H) 7.30 - 7.40 [facility] pCO2 Mixed Venous 53(H) 40 - 46 mmHg [facility] pO2 Mixed Venous 33(L) 35 - 42 mmHg [facility] HCO3 Mixed Venous 33.4(H) 22.0 - 26.0 mmol/L [facility] TCO2 Mixed Venous 35.1(H) 25.0 - 29.0 mmol/L [facility] Base Excess Venous 8.0(H) -2.0 - 2.0 mmol/L [facility] Hemoglobin Mixed Venous 8.4(L) 13.5 - 17.5 g/dL [facility] Oxyhemoglobin Mixed Venous 56.4(L) 66.0 - 77.0 % [facility] Carboxyhemoglobin Venous 0.3 0.0 - 3.0 % [facility] Methemoglobin 0.1 0.0 - 2.0 % [facility] FI O2 Mixed Venous 35.0 % [facility] Blood specimen (specimen) BLOOD SPECIMEN / Unknown 08/26/2017 2:20 PM CDT 08/26/2017 2:27 PM CDT Narrative [facility] - 08/26/2017 2:30 PM CDT [id number] Nas Wintesr MD LAB - BLOOD GASES OR DERABLES [facility] [address] [place] [address] * MRI BRAIN WWO CONTRAST (08/14/2017 5:05 [...] URINALYSIS W/MICROSCOPIC NO CULTURE (08/11/2017 6:43 PM HOSPITAL ACCOUNT MANAGER) Only the most recent of6 resultswithin the time period is included. Color UA Yellow Straw, Yellow, Colorless, Light Yellow [facility] Clarity UA Clear Clear [facility] Specific [place] UA 1.014 1.001 - 1.030 [facility] pH UA 5.5 5.0 - 8.0 [facility] Protein UA 20 <=20 mg/dL [facility] Glucose UA Negative Negative mg/dL [facility] Ketone UA Trace(A) Negative mg/dL [facility] Bilirubin UA Negative Negative mg/dL [facility] Blood UA Negative Negative [facility] Nitrite UA Negative Negative [facility] Leukocyte Esterase Moderate(A) Negative [facility] Urobilinogen UA <2.0 <2.0 mg/dL [facility] RBC UA 6 0 - 8 /HPF [facility] WBC UA 12(H) 0 - 2 /HPF [facility] Bacteria UA Rare Rare, Occasional, None /HPF [facility] Mucus UA Moderate(A) None /LPF [facility] Urine specimen (specimen) URINE SPECIMEN OBTAINED BY CLEAN CATCH PROCEDURE / Unknown 08/11/2017 6:43 PM HOSPITAL ACCOUNT MANAGER 08/11/2017 7:02 PM HOSPITAL ACCOUNT MANAGER Angela Corona MD LAB - URINALYSIS ORD ERABLES Performing Organization Address City/State/[facility] Co de Phone Number [address] [phone] * RESPIRATORY PATHOGEN PANEL BY PCR (08/09/2017 8:07 PM HOSPITAL ACCOUNT MANAGER) Only the most recent of2 resultswithin the time period is included. Adenovirus Not Detected Not Detected, Indetermin ate, Invalid [facility] Human Metapneumovirus Not Detected Not Detected, Indetermin ate, Invalid [facility] Rhinovirus/Enterov irus Not Detected Not Detected, Indetermin ate, Invalid [facility] Influenza A Non subtyped Not Detected Not Detected, Indetermin ate, Invalid [facility] Influenza A H1 Not Detected Not Detected, Indetermin ate, Invalid [facility] Influenza A H3 Not Detected Not Detected, Indetermin ate, Invalid [facility] Influenza A H1 2009 Not Detected Not Detected, Indetermin ate, Invalid [facility] Influenza B Not Detected Not Detected, Indetermin ate, Invalid [facility] Mycoplasma pneumoniae Not Detected Not Detected, Indetermin ate, Invalid [facility] Parainfluenza 1 Not Detected Not Detected, Indetermin ate, Invalid [facility] Parainfluenza 2 Not Detected Not Detected, Indetermin ate, Invalid [facility] Parainfluenza 3 Not Detected Not Detected, Indetermin ate, Invalid [facility] Parainfluenza 4 Not Detected Not Detected, Indetermin ate, Invalid [facility] Respiratory Syncytial Virus Not Detected Not Detected, Indetermin ate, [facility] Bordetella pertussis Not Detected Not Detected, Indetermin ate, Invalid [facility] Coronavirus Not Detected Not Detected, Indetermin ate, Invalid [facility] Nasopharyngeal NASOPHARYNGEAL SWAB / Unknown 08/09/2017 8:07 PM HOSPITAL ACCOUNT MANAGER 08/09/2017 8:23 PM HOSPITAL ACCOUNT MANAGER Narrative [facility] - 08/10/2017 4:20 AM HOSPITAL ACCOUNT MANAGER Coronavirus PCR detects the following coronaviruses: 229E, HKU1, NL63, OC43. Resulting Lab: ?? [facility] MICROBI[facility]Y [address] [place] [address] PH: [phone] Angela Corona MD LAB - MICROBIOLOGY O RDERABLES Performing Organization Address City/State/[facility] Co de Phone Number [address] [phone] * STREP PNEUMONIAE ANTIGEN URINE (08/09/2017 8:07 PM HOSPITAL ACCOUNT MANAGER) Only the most recent of2 resultswithin the time period is included. Streptococcus pneumoniae Antigen Urine Negative Negative [facility] Urine specimen (specimen) URINE / Unknown 08/09/2017 8:07 PM HOSPITAL ACCOUNT MANAGER 08/09/2017 8:23 PM HOSPITAL ACCOUNT MANAGER Narrative [facility] - 08/11/2017 8:42 AM HOSPITAL ACCOUNT MANAGER Comment: Patients who have received the Streptococcus [...] may cause false negatives. Resulting Lab: ?? [facility] [address] [place] [address] PH: [phone] Angela Corona MD LAB - MICROBIOLOGY O RDERABLES [facility] [address] [place] [address], [facility] [phone] * CT LUMBAR SPINE WO CONTRAST (08/09/2017 6:30 PM HOSPITAL ACCOUNT MANAGER) Only the most recent of2 resultswithin the time period is included. Anatomical Region Laterality Modality Spine Other Impressions 08/10/2017 12:17 PM HOSPITAL ACCOUNT MANAGER IMPRESSION: 1. Increase in the endplate erosion [...] 12:17 PM . Narrative 08/10/2017 12:17 PM HOSPITAL ACCOUNT MANAGER EXAMINATION: 1. CT of the thoracic spine [...] pneumonia,grossly unchanged. This report was approved by [facility] on 08/10/2017 11:[address] KJ Stringer have personally reviewed and interpreted thisexamination/study. This report was electronically signed by KJ MENDEZ on 08/10/201712:17 PM . Adam Madden MD CT ORDERABLES * CT THORACIC SPINE WO CONTRAST (08/09/2017 6:30 PM HOSPITAL ACCOUNT MANAGER) Only the most recent of2 resultswithin the time period is included. Anatomical Region Laterality Modality Spine Other Impressions 08/10/2017 12:17 PM HOSPITAL ACCOUNT MANAGER IMPRESSION: 1. Increase in the endplate erosion [...] 12:17 PM . Narrative 08/10/2017 12:17 PM HOSPITAL ACCOUNT MANAGER EXAMINATION: 1. CT of the thoracic spine [...] AG + TOXIN A+B (08/09/2017 5:01 PM HOSPITAL ACCOUNT MANAGER) C difficile Antigen Negative Negative [facility] C difficile Toxin Negative Negative [facility] Stool specimen (specimen) STOOL SPECIMEN / Unknown 08/09/2017 5:01 PM HOSPITAL ACCOUNT MANAGER 08/09/2017 5:03 PM HOSPITAL ACCOUNT MANAGER Narrative [facility] - 08/10/2017 9:44 AM HOSPITAL ACCOUNT MANAGER Specimen Type->Stool Resulting Lab: ?? [facility]CROBIOLOG[facility] [address] [place] [address] PH: [phone] Adam Madden MD LAB - MICROBIOLOGY O RDSP [facility] [address] [place], [place] [id number] [place] [address] * VIRAL CULTURE MISC (08/04/2017 2:22 PM HOSPITAL ACCOUNT MANAGER) Only the most recent of2 resultswithin the time period is included. Viral Culture General No virus isolated. [facility] Bronchoalveolar Lavage BRONCHIOLOALVEOLAR LAVAGE / Unknown 08/04/2017 2:22 PM HOSPITAL ACCOUNT MANAGER 08/04/2017 4:05 PM HOSPITAL ACCOUNT MANAGER Narrative [facility] ([facility]) - 08/17/2017 7:14 AM CDT lingula Specimen Type->Bronchoalveolar Lavage Performed at: ??01 - [facility] [address] ??[id number] Curing Pickling Packer: Leroy Sanchez MD, Phone: ??[phone] Robe Mohamud MD LAB - MICROBIOLOGY O RDSP [facility]) [address] [place] [address] * CULTURE BRONCHOALVEOLAR LAVAGE QNT+GRAM STAIN (08/04/2017 2:22 PM HOSPITAL ACCOUNT MANAGER) Culture Quant-BAL Normal Respiratory Robert [facility] Culture Quant-BAL 50,000-100,000 CFU/mL [facility] Gram Stain heavy White Blood Cells [facility] Gram Stain Rare Gram Positive cocci [facility] Gram Stain Moderate Yeast [facility] Bronchoalveolar Lavage BRONCHIOLOALVEOLAR LAVAGE / Unknown 08/04/2017 2:22 PM HOSPITAL ACCOUNT MANAGER 08/04/2017 3:04 PM HOSPITAL ACCOUNT MANAGER Narrative [facility] - 08/06/2017 11:39 AM HOSPITAL ACCOUNT MANAGER lingula Specimen Type->Bronchoalveolar Lavage lingula Resulting Lab: ?? [facility] [address] [place] [address] PH: [phone] Robe Mohamud MD LAB - MICROBIOLOGY O RDERABLES [facility] [address] [place] [address] * CULTURE AFB+SMEAR (08/04/2017 2:22 PM HOSPITAL ACCOUNT MANAGER) Only the most recent of5 resultswithin the time period is included. Culture Acid Fast Bacilli No growth of Acid Fast bacilli [facility] AFB Smear No acid fast bacilli seen [facility] Bronchoalveolar Lavage BRONCHIOLOALVEOLAR LAVAGE / Unknown 08/04/2017 2:22 PM HOSPITAL ACCOUNT MANAGER 08/04/2017 3:04 PM HOSPITAL ACCOUNT MANAGER Narrative [facility] - 09/12/2017 11:12 AM CDT lingula Specimen Type->Bronchoalveolar Lavage Resulting Lab: ?? [facility] [address] [place] [address] PH: [phone] Resulting Lab: ?? [facility] [address] [place] [address] PH: [phone] Resulting Lab: ?? [facility] [address] [place] [address] PH: [phone] Resulting Lab: ?? [facility] [address] [place] [address] PH: [phone] Resulting Lab: ?? [facility] [address] [place] [address] PH: [phone] Resulting Lab: ?? [facility] [address] [place] [address] PH: [phone] Resulting Lab: ?? [facility] [address] [place] [address] PH: [phone] Resulting Lab: ?? [facility] [address] [place] [address] PH: [phone] Robe Mohamud MD LAB - MICROBIOLOGY O RIO Performing Organization Address [facility]/ZIP Co de Phone Number [address] [phone] * (ABNORMAL) CULTURE FUNGUS OTHER+FUNGUS SMEAR (08/04/2017 2:17 PM HOSPITAL ACCOUNT MANAGER) Only the most recent of5 resultswithin the time period is included. Culture Fungus-Other ZAIN TROPICALIS( A) [facility] Comment:Light to Moderate Gr owth Zain Tropicalis Fungus Smear Rare Yeast [facility] Bronchial Washings SPECIMEN FROM LUNG OBTAINED BY BRONCHIAL WASHING PROCEDURE / Unknown 08/04/2017 2:17 PM HOSPITAL ACCOUNT MANAGER 08/04/2017 3:04 PM HOSPITAL ACCOUNT MANAGER Narrative [facility] - 08/28/2017 9:20 AM CDT wash Specimen Type->Bronchial Washings Resulting Lab: ?? [facility] [address] [place] [address] PH: [phone] Resulting Lab: ?? [facility] [address] [place] [address] PH: [phone] Resulting Lab: ?? [facility] [address] [place] [address] PH: [phone] Resulting Lab: ?? [facility] [address] [place] [address] PH: [phone] Resulting Lab: ?? [facility] [address] [place] [address] PH: [phone] Resulting Lab: ?? [facility] [address] [place] [address] PH: [phone] Robe Mohamud MD LAB - MICROBIOLOGY O RIO Performing Organization Address [facility]/ZIP Co de Phone Number [address] [phone] * XR CHEST 2VW INSPIR EXPIRATION (08/02/2017 6:32 PM HOSPITAL ACCOUNT MANAGER) Only the most recent of4 resultswithin the time period is included. Anatomical Region Laterality Modality Chest Other Impressions 08/03/2017 4:02 PM HOSPITAL ACCOUNT MANAGER IMPRESSION: Enteric tube follows the expected esophageal [...] was dictated by John Greene M.D. (residential plumber). I, Dr. SILAS NGUYỄN MD have personally reviewed and interpreted this examination/study. This report was electronically signed by SILAS NGUYỄN MD ??on 08/03/2017 4:02 PM . Narrative 08/03/2017 4:02 PM HOSPITAL ACCOUNT MANAGER EXAMINATION: Portable AP radiograph of the chest. [...] was dictated by John Greene M.D. (residential plumber). I, Dr. SILAS NGUYỄN MD have personally reviewed and interpreted thisexamination/study. This report was electronically signed by SILAS NGUYỄN MD on 08/03/20174:02 PM . Ulices Hodgson MD DIAGNOSTIC IMAGING O RDERABLES * IR PLEURAL DRAIN (08/02/2017 3:26 PM HOSPITAL ACCOUNT MANAGER) Anatomical Region Laterality Modality Other Impressions 08/02/2017 5:57 PM HOSPITAL ACCOUNT MANAGER Impression: Successful ultrasound-guided placement of a 10 Tongan pigtail drainage catheter in the right pleural [...] 5:57 PM . Narrative 08/02/2017 5:57 PM HOSPITAL ACCOUNT MANAGER History: 66-year-old male with pneumonia and right pleural effusion, presents for image guided placement of a right pleural catheter Operators: 1. ??Dr. Hodgson, Attending Physician 2. ??Dr. Haney, IR resident Anesthesia: Local anesthesia - 10 mL of 1% lidocaine Procedure: 1. ??Limited ultrasound evaluation of the right chest. 2. ??Ultrasound-guided placement of 10 Tongan ReSolve pigtail drainage catheter in the right [...] was provided with % Lidocaine. A 6 Tongan One- Step coaxial needle system was advanced in stages under real time ultrasound guidance. Upon aspiration of fluid, the outer-sheath was advanced within the pleural space. A 0.035 inch guidewire was looped within the pleural space and following series of dilatation/exchanges, a 10 Tongan ReSolve pigtail drainage catheter was advanced. The [...] right chest. 2. Ultrasound-guided placement of 10 Tongan ReSolve pigtail drainagecatheter in the right pleural [...] anesthesia was provided with % Lidocaine.A 6 Tongan One- Step coaxial needle system was advanced in stages underreal time ultrasound guidance. Upon aspiration of fluid, the outer-sheath was advanced within the pleuralspace. A 0.035 inch guidewire was looped within the pleural space andfollowing series of dilatation/exchanges, a 10 Tongan ReSolve pigtaildrainage catheter was advanced. The initial aspirate was clear yellow colored fluid, and approximately 100 mL of fluidwere drained. An appropriate amount of aspirate was sent for necessarylaboratory work up. Final imaging showed the catheter in satisfactoryposition. The patient tolerated the procedure well [facility]. There were no immediate complicationsassociated with the procedure. IMPRESSION Impression: Successful ultrasound-guided placement of a 10 Tongan pigtaildrainage catheter in the right pleural space, [...] * FL ADAM SURGERY (07/29/2017 12:00 PM HOSPITAL ACCOUNT MANAGER) Anatomical Region Laterality Modality Other Narrative 07/29/2017 1:02 PM HOSPITAL ACCOUNT MANAGER Fluoroscopy was used for this exam. Please see the Operative report. Procedure Note Provider, MD Claire - 09/07/2017 Fluoroscopy was used for this exam. Please see the Operative report. Ronald Murray MD FLUOROSCOPY ORDERABL ES * LACTIC ACID WHOLE BLOOD (07/29/2017 11:30 AM HOSPITAL ACCOUNT MANAGER) Only the most recent of2 resultswithin the time period is included. Lactic Acid Whole Blood 1.1 0.5 - 3.4 mmol/L [facility] Blood specimen (specimen) BLOOD SPECIMEN / Unknown 07/29/2017 11:30 AM HOSPITAL ACCOUNT MANAGER 07/29/2017 11:35 AM HOSPITAL ACCOUNT MANAGER Epi Collier MD LAB - CHEMISTRY ROYCE KLINE [address] [phone] * CHLORIDE WHOLE BLOOD (07/29/2017 11:30 AM HOSPITAL ACCOUNT MANAGER) Only the most recent of2 resultswithin the time period is included. Chloride Whole Blood 109 101 - 111 mmol/L [facility] Blood specimen (specimen) BLOOD SPECIMEN / Unknown 07/29/2017 11:30 AM HOSPITAL ACCOUNT MANAGER 07/29/2017 11:35 AM HOSPITAL ACCOUNT MANAGER Epi Collier MD LAB - CHEMISTRY [place]CE KLINE [address] [phone] * (ABNORMAL) CALCIUM IONIZED WHOLE BLOOD (07/29/2017 11:30 AM HOSPITAL ACCOUNT MANAGER) Only the most recent of3 resultswithin the time period is included. Ionized Calcium Whole Blood 1.36 mmol/L [facility] Adjusted Ionized Calcium 1.38(H) 1.19 - 1.34 mmol/L [facility] pH Whole Blood 7.43 7.35 - 7.45 [facility] Blood specimen (specimen) BLOOD SPECIMEN / Unknown 07/29/2017 11:30 AM HOSPITAL ACCOUNT MANAGER 07/29/2017 11:35 AM HOSPITAL ACCOUNT MANAGER Epi Collier MD LAB - CHEMISTRY ROYCE KLINE Performing Organization Address [facility]/ZIP Co de Phone Number [address] [phone] * (ABNORMAL) POTASSIUM WHOLE BLD (07/29/2017 11:30 AM HOSPITAL ACCOUNT MANAGER) Only the most recent of2 resultswithin the time period is included. Potassium Whole Blood 3.3(L) 3.5 - 5.5 mmol/L [facility] Blood specimen (specimen) BLOOD SPECIMEN / Unknown 07/29/2017 11:30 AM HOSPITAL ACCOUNT MANAGER 07/29/2017 11:35 AM HOSPITAL ACCOUNT MANAGER Epi Collier MD LAB - CHEMISTRY [place]CE KLINE [address] [phone] * SODIUM WHOLE BLOOD (07/29/2017 11:30 AM HOSPITAL ACCOUNT MANAGER) Only the most recent of2 resultswithin the time period is included. Sodium Whole Blood 140 135 - 145 mmol/L [facility] Blood specimen (specimen) BLOOD SPECIMEN / Unknown 07/29/2017 11:30 AM HOSPITAL ACCOUNT MANAGER 07/29/2017 11:35 AM HOSPITAL ACCOUNT MANAGER Epi Collier MD LAB - CHEMISTRY ROYCE KLINE Performing Organization Address [facility] [place] [place] [address], [facility] [phone] * GLUCOSE WHOLE BLOOD (07/29/2017 11:30 AM HOSPITAL ACCOUNT MANAGER) Only the most recent of2 resultswithin the time period is included. Glucose Whole Blood 90 70 - 110 mg/dL [facility] Blood specimen (specimen) BLOOD SPECIMEN / Unknown 07/29/2017 11:30 AM HOSPITAL ACCOUNT MANAGER 07/29/2017 11:35 AM HOSPITAL ACCOUNT MANAGER Epi Collier MD LAB - CHEMISTRY ROYCE KLINE Performing Organization Address [facility] [place] [address], [facility] [phone] * (ABNORMAL) METHICILLIN RAPID TEST (07/29/2017 3:45 AM HOSPITAL ACCOUNT MANAGER) Only the most recent of4 resultswithin the time period is included. Pathologist [facility] Methicillin Rapid Test Positive( A) Negative [facility] Blood specimen (specimen) (Venous, Peripheral) 07/29/2017 3:45 AM HOSPITAL ACCOUNT MANAGER 07/29/2017 4:18 AM HOSPITAL ACCOUNT MANAGER Narrative [facility] - 08/01/2017 3:27 PM HOSPITAL ACCOUNT MANAGER Methicillin Resistant Staphylococcus aureus (MRSA) by penicillin binding protein immunoassay. Conventional susceptibility testing to follow. Angela Corona MD LAB - MICROBIOLOGY O RDERABLES Performing Organization Address [facility] [place] [address], [facility] [phone] * AMYLASE BODY FLUID ([facility] ONLY) (07/28/2017 7:26 PM HOSPITAL ACCOUNT MANAGER) Amylase Fluid 9 Not Established For Fluids Units/L [facility] Comment:The reference range and other method performance specifications have not been established for this fluid. The test result must be integrated into the clinical context for interpretation. Fluid specimen (specimen) PLEURAL FLUID / Unknown 07/28/2017 7:26 PM HOSPITAL ACCOUNT MANAGER 07/28/2017 7:26 PM HOSPITAL ACCOUNT MANAGER Angela Corona MD LAB - BODY FLUID ORD ERABLES [address] [phone] * CYTOLOGY NON-PALLIATIVE MEDICINE PHYSICIAN PANEL (STL) (07/28/2017 7:26 PM HOSPITAL ACCOUNT MANAGER) Pathologist [facility] Cytology Non-Engineering [employer] Sales Accession No: [id number] Reference: [id number] Specimen: PLEURAL FLUID Clinical History: Pleural Fluid [...] fibrin. There is no evidence of malignancy. ES/TX COMMENT(S): This case has been personally reviewed and interpreted by the attending (teaching) pathologist. Initial Evaluation performed by Gabbie FAJARDO (ASCP). Electronically signed 07/29/2017 Final Diagnosis performed by Sathya Oakley MD. Electronically signed 08/01/2017 [facility] Other (qualifier value) 07/28/2017 7:26 PM HOSPITAL ACCOUNT MANAGER 07/28/2017 7:26 PM HOSPITAL ACCOUNT MANAGER Narrative [facility] - 08/01/2017 11:37 AM HOSPITAL ACCOUNT MANAGER Diagnosis->Pleural effusion Specimen A->Pleural Fluid Pleural Fluid Angela Corona MD LAB - PATHOLOGY/CYTO LOGY ORDERABLES Performing Organization Address [facility] Co de Phone Number [facility] [address] [facility] [place] [address], [facility] [phone] * CHOLESTEROL FLUID (07/28/2017 7:26 PM HOSPITAL ACCOUNT MANAGER) Total Cholesterol Body Fluid 21 See Comment mg/dL [facility] Comment:The reference range and other method performance specifications have not been established for this fluid. The test result must be integrated into the clinical context for interpretation. Pleural fluid specimen (specimen) PLEURAL FLUID / Unknown 07/28/2017 7:26 PM HOSPITAL ACCOUNT MANAGER 07/28/2017 7:26 PM HOSPITAL ACCOUNT MANAGER Angela Corona MD LAB - BODY FLUID ORD ERABLES Performing Organization Address [facility] Co de Phone Number [address] [phone] * TRIGLYCERIDES FLUID (07/28/2017 7:26 PM HOSPITAL ACCOUNT MANAGER) Triglycerides Fluid 12 Not Established For Fluids mg/dL [facility] Comment:The reference range and other method performance specifications have not been established for this fluid. The test result must be integrated into the clinical context for interpretation. Pleural fluid specimen (specimen) PLEURAL FLUID / Unknown 07/28/2017 7:26 PM HOSPITAL ACCOUNT MANAGER 07/28/2017 7:26 PM HOSPITAL ACCOUNT MANAGER Angela Corona MD LAB - BODY FLUID ORD ERABLES Performing Organization Address [facility] [place] [address], [facility] [phone] * ALBUMIN FLUID (07/28/2017 7:26 PM HOSPITAL ACCOUNT MANAGER) Albumin Fluid 0.8 Not Established For Fluids g/dL [facility] Comment:The reference range and other method performance specifications have not been established for this fluid. The test result must be integrated into the clinical context for interpretation. Fluid specimen (specimen) PLEURAL FLUID / Unknown 07/28/2017 7:26 PM HOSPITAL ACCOUNT MANAGER 07/28/2017 7:26 PM HOSPITAL ACCOUNT MANAGER Angela Corona MD LAB - BODY FLUID ORD ERABLES [address] [phone] * CT ANGIO BRAIN AND NECK (07/28/2017 7:03 AM HOSPITAL ACCOUNT MANAGER) Anatomical Region Laterality Modality Head Other Impressions 07/28/2017 1:35 PM HOSPITAL ACCOUNT MANAGER IMPRESSION: 1. Slightly increased intra-axial hemorrhage in [...] 1:35 PM . Narrative 07/28/2017 1:35 PM HOSPITAL ACCOUNT MANAGER EXAMINATION: 1. Computed tomographic (CT) angiography of [...] ECHO FU OR LIMITED (07/28/2017 12:00 AM HOSPITAL ACCOUNT MANAGER) Anatomical Region Laterality Modality Other 07/28/2017 Angela Corona MD ECHOCARDIOGRAPHY RAD IANT * (ABNORMAL) TEG PLATELET MAPPING (07/27/2017 3:00 PM HOSPITAL ACCOUNT MANAGER) G-Clot Strength 12.5(H) 4.5 - 11.0 d/sc [facility] Interpretation TEG See Comment [facility] React-Time 3.7(L) 5.0 - 10.0 MIN [facility] K-Time 0.8(L) 1.0 - 3.0 MIN [facility] Angle A-BB 81.5(H) 53.0 - 72.0 Degrees [facility] MA (CK) BB 71.4(H) 50.0 - 70.0 mm [facility] LY30 10.8(H) 0.0 - 8.0 % [facility] CI-Coagulation Index 4.4(H) -3.0 - 3.0 [facility] MA-ADP 79.4 Reference Range: None mm [facility] MA AA-BB 73.8 Reference Range: None mm [facility] % ADP Inhibition 0.0 Reference Range:None % [facility] % AA Inhibition 0.0 Reference Range: None % [facility] Blood specimen (specimen) BLOOD SPECIMEN / Unknown 07/27/2017 3:00 PM HOSPITAL ACCOUNT MANAGER 07/27/2017 3:10 PM HOSPITAL ACCOUNT MANAGER Narrative [facility] - 07/27/2017 4:29 PM HOSPITAL ACCOUNT MANAGER SEE BELOW ?TEG Kaolin Sample Type Interpretation [...] MD LAB - BLOOD BANK ORD ERABLES [facility] [address] [place] [address], [facility] * MRI LUMBAR SPINE WWO CONTRAST (07/26/2017 10:55 PM HOSPITAL ACCOUNT MANAGER) Anatomical Region Laterality Modality Spine Other Impressions 07/27/2017 10:54 AM HOSPITAL ACCOUNT MANAGER IMPRESSION: 1. Interval progression of discitis/osteomyelitis at [...] 10:54 AM . Narrative 07/27/2017 10:54 AM HOSPITAL ACCOUNT MANAGER EXAMINATION: Magnetic resonance imaging (MRI) of the [...] central canal extending from the level of N2dlynteuxkf the thoracic spine in the epidural space [...] edema and enhancement within the L1 and O0elxeivbtl bodies, with edema in the L1-2 intervertebral [...] 4 image 14) by 1.5 cm TV ([id number] image 3), representing an epidural abscess. This collection causes moderate central canal stenosisat T12- L1. A more focal dorsal epidural collection is present at the W3yzaqu measuring up to 5 mm in depth [...] dimension and 4.0 cm in transverse dimension ([id number] image 17). There is enhancement in the [...] THORACIC SPINE WWO CONT (07/26/2017 10:54 PM HOSPITAL ACCOUNT MANAGER) Anatomical Region Laterality Modality Spine Other Impressions 07/27/2017 10:54 AM HOSPITAL ACCOUNT MANAGER IMPRESSION: 1. Interval progression of discitis/osteomyelitis at [...] 10:54 AM . Narrative 07/27/2017 10:54 AM HOSPITAL ACCOUNT MANAGER EXAMINATION: Magnetic resonance imaging (MRI) of the [...] central canal extending from the level of M9sdrhwpkfsz the thoracic spine in the epidural space [...] edema and enhancement within the L1 and S1xvbyyiwtn bodies, with edema in the L1-2 intervertebral [...] 4 image 14) by 1.5 cm TV ([id number] image 3), representing an epidural abscess. This collection causes moderate central canal stenosisat T12- L1. A more focal dorsal epidural collection is present at the P3lvlbm measuring up to 5 mm in depth [...] ORDERABLES * IR THORACENTESIS (07/26/2017 4:07 PM HOSPITAL ACCOUNT MANAGER) Anatomical Region Laterality Modality Other Impressions 07/26/2017 9:14 PM HOSPITAL ACCOUNT MANAGER Impression: Ultrasound-guided diagnostic and therapeutic left thoracentesis with drainage of approximately 960 mL of straw-colored pleural fluid.? Note: Patient will be followed up with Chest X-ray. I, Dr. Acuña, was present and performed/supervised the entire procedure. This report was electronically signed by ADAM ACUÑA M.D. ??on 07/26/2017 9:14 PM . Narrative 07/26/2017 9:14 PM HOSPITAL ACCOUNT MANAGER History: 66 y.o.?male?with a?PMHx?significant for MSSA chronic [...] 1% Lidocaine. ??Using ultrasound guidance, a 5 Tongan one-step centesis catheter needle system was advanced [...] with 1%Lidocaine. Using ultrasound guidance, a 5 Tongan one-step centesiscatheter needle system was advanced into [...] * XR CHEST 2VW (07/25/2017 11:34 AM HOSPITAL ACCOUNT MANAGER) Anatomical Region Laterality Modality Chest Other Impressions 07/25/2017 3:52 PM HOSPITAL ACCOUNT MANAGER IMPRESSION: A gastric tube can be followed below the diaphragm, however, the tip is not visualized. Lung volumes are small. Small left pleural effusion with associated atelectasis/airspace disease is present. Mild right basilar atelectasis is seen. There is no right pleural effusion or pneumothorax. The cardiac silhouette is enlarged. The aorta is atherosclerotic. Dictated by Natacha Garrett MD (residential plumber). This report was approved ??by Natacha Garrett ?? on 07/25/2017 3:[address] NAOMI Stringer M.D. have personally reviewed and interpreted this examination/study. This report was electronically signed by NAOMI HARDEN M.D. ??on 07/25/2017 3:52 PM . Narrative 07/25/2017 3:52 PM HOSPITAL ACCOUNT MANAGER EXAMINATION: XR CHEST PA AND LATERAL HISTORY: [...] atherosclerotic. Dictated by Natacha Garrett MD (residential plumber). This report was approved by Natacha Garrett on 07/25/2017 3:29 PM . I, Dr. NAOMI HARDEN M.D. have personally reviewed and interpreted thisexamination/study. This report was electronically signed by NAOMI HARDEN M.D. on 07/25/20173:52 PM . Angela Corona MD DIAGNOSTIC IMAGING O RDERABLES * TSH (07/24/2017 5:08 AM HOSPITAL ACCOUNT MANAGER) TSH 2.518 0.350 - 4.940 uIU/mL [facility] Blood specimen (specimen) BLOOD SPECIMEN / Unknown 07/24/2017 5:08 AM HOSPITAL ACCOUNT MANAGER 07/24/2017 5:44 AM HOSPITAL ACCOUNT MANAGER Angela Corona MD LAB - CHEMISTRY ROYCE KLINE [facility] Organization Address City/State/ZIP Co de Phone Number [address] [phone] * CT GUIDED NEEDLE PLACEMENT (07/22/2017 5:00 PM HOSPITAL ACCOUNT MANAGER) Only the most recent of2 resultswithin the time period is included. Anatomical Region Laterality Modality Abdomen Other Impressions 07/22/2017 7:15 PM HOSPITAL ACCOUNT MANAGER Impression: Successful CT-guided fine-needle aspiration of left [...] Report dictated by Daniel Owusu M.D. (residential plumber) This report was approved ??by Daniel Owusu M.D. ?? on 07/22/2017 6:44 PM . I, Dr. VILMA GRIDER M.D. have personally reviewed and interpreted this examination/study. This report was electronically signed by VILMA GRIDER M.D. ??on 07/22/2017 7:15 PM . Narrative 07/22/2017 7:15 PM HOSPITAL ACCOUNT MANAGER History: 66-year-old male with a left psoas [...] Report dictated by Daniel Owusu M.D. (residential plumber) This report was approved by Daniel Owusu M.D. on 07/22/2017 6:44 PM . I, Dr. VILMA GRIDER M.D. have personally reviewed and interpretedthis examination/study. This report was electronically signed by VILMA GRIDER M.D. on07/22/2017 7:15 PM . Angela Corona MD CT ORDERABLES * VAS BILATERAL VENOUS DUPLEX UE (07/22/2017 10:51 AM HOSPITAL ACCOUNT MANAGER) Anatomical Region Laterality Modality Other Angela Corona MD VASCULAR LAB ORDERAB LES * VAS BILATERAL VENOUS DUPLEX LE (07/22/2017 10:51 AM HOSPITAL ACCOUNT MANAGER) Anatomical Region Laterality Modality Other Angela Corona MD VASCULAR LAB ORDERAB LES * (ABNORMAL) ORGANISM ID REFLEXED (07/22/2017 6:10 AM HOSPITAL ACCOUNT MANAGER) Only the most recent of2 resultswithin the time period is included. Staphylococcus Detected(A) Not Detected, Invalid, Indeterminate [facility] Staphylococcus aureus Detected(A) Not Detected, Indeterminate, Invalid [facility] mecA Methicillin Resistance Detected(A) Not Detected, Indeterminate, Invalid, Not Applicable [facility] Comment:Methicillin-RESISTAN T Staphylococcus aureus (MRSA) detected, by nucleic acid testing.?? Full antimicrobial susceptibility testing to follow. Drug of Choice: Vancomycin. Enterococcus Not Detected Not Detected, Indeterminate, Invalid [facility] Van A/B Vancomycin Resistance Not Applicable Not Detected, Indeterminate, Invalid, Not Applicable [facility] Streptococcus Not Detected Not Detected, Indeterminate, Invalid [facility] Streptococcus pyogenes (Group A) Not Detected Not Detected, Indeterminate, Invalid [facility] Streptococcus agalactiae (Group B) Not Detected Not Detected, Indeterminate, Invalid [facility] Streptococcus pneumoniae Not Detected Not Detected, Invalid [facility] Listeria monocytogenes Not Detected Not Detected, Indeterminate, Invalid [facility] Enterobacteriaceae Not Detected Not Detected, Indeterminate, Invalid [facility] Enterobacter cloacae complex Not Detected Not Detected, Indeterminate, Invalid [facility] Escherichia coli Not Detected Not Detected, Indeterminate, Invalid [facility] Klebsiella oxytoca Not Detected Not Detected, Indeterminate, Invalid [facility] Klebsiella pneumoniae Not Detected Not Detected, Indeterminate, Invalid [facility] Proteus Species Not Detected Not Detected, Indeterminate, Invalid [facility] Serratia marcescens Not Detected Not Detected , Indeterminate, Invalid [facility] Pseudomonas aeruginosa Not Detected Not Detected, Indeterminate, Invalid [facility] Acinetobacter baumannii Not Detected Not Detected, Indeterminate, Invalid [facility] KPC Not Applicable Not Detected, Indeterminate, Invalid, Not Applicable [facility] Haemophilus Influenzae Not Detected Not Detected, Indeterminate, Invalid [facility] Neisseria meningitidis Not Detected Not Detected, Indeterminate, Invalid [facility] Zain albicans Not Detected Not Detected, Indeterminate, Invalid [facility] Zain glabrata Not Detected Not Detected, Indeterminate, Invalid [facility] Zain krusei Not Detected Not Detected, Indeterminate, Invalid [facility] Zain parapsilosis Not Detected Not Detecte d, Indeterminate, Invalid [facility] Zain tropicalis Not Detected Not Detected, Indeterminate, Invalid [facility] Blood specimen (specimen) (Arm, Left) 07/22/2017 6:10 AM HOSPITAL ACCOUNT MANAGER 07/22/2017 6:34 AM HOSPITAL ACCOUNT MANAGER [facility] - 07/24/2017 11:14 AM HOSPITAL ACCOUNT MANAGER RESULTS CALLED TO TEAM:WHITE VIA ON-CALL TEAM(Dr. Seb SON) ? [phone] @ [phone]. Antimicrobial resistance can occur via multiple mechanisms. A Not Detected result for the [employer] Antimicrobial resistance gene assays does not indicate antimicrobial susceptibility. Sub-culturing is required for species identification and susceptibility testing of isolates. Resulting Lab: ?? [facility] [address] [place] [address] PH: [phone] Angela Corona MD LAB - MICROBIOLOGY O RDERABLES [facility] [address] [place] [address], [facility] [phone] * ECHO [place] TRANSESOPHAGEAL (07/18/2017 12:00 AM HOSPITAL ACCOUNT MANAGER) Anatomical Region Laterality Modality Other 07/18/2017 Angela Corona MD ECHOCARDIOGRAPHY RAD IANT * (ABNORMAL) VITAMIN B12 (07/17/2017 1:08 PM HOSPITAL ACCOUNT MANAGER) Vitamin B12 >2,000(H) 213 - 816 pg/mL [facility] Blood specimen (specimen) BLOOD SPECIMEN / Unknown 07/17/2017 1:08 PM HOSPITAL ACCOUNT MANAGER 07/17/2017 1:32 PM HOSPITAL ACCOUNT MANAGER Angela Corona MD LAB - CHEMISTRY ROYCE KLINE Performing Organization Address City/[facility]/ZIP Co de Phone Number [address] [phone] * (ABNORMAL) TRANSFERRIN (07/17/2017 1:08 PM HOSPITAL ACCOUNT MANAGER) Only the most recent of2 resultswithin the time period is included. Transferrin 126(L) 174 - 382 mg/dL [facility] Transferrin Saturation % 9(L) 16 - 50 % [facility] Blood specimen (specimen) BLOOD SPECIMEN / Unknown 07/17/2017 1:08 PM HOSPITAL ACCOUNT MANAGER 07/17/2017 1:32 PM HOSPITAL ACCOUNT MANAGER Angela Corona MD LAB - CHEMISTRY ROYCE KLINE Performing Organization Address City/[facility]/ZIP Co de Phone Number [address] [phone] * CERULOPLASMIN (07/17/2017 1:08 PM HOSPITAL ACCOUNT MANAGER) Ceruloplasmin 31 20 - 60 mg/dL [facility] Blood specimen (specimen) BLOOD SPECIMEN / Unknown 07/17/2017 1:08 PM HOSPITAL ACCOUNT MANAGER 07/17/2017 1:32 PM HOSPITAL ACCOUNT MANAGER Angela Corona MD LAB - CHEMISTRY ROYCE KLINE Performing Organization Address City/[facility]/ZIP Co de Phone Number [address] [phone] * (ABNORMAL) IRON BLOOD (07/17/2017 1:08 PM HOSPITAL ACCOUNT MANAGER) Iron 14(L) 50 - 175 mcg/dL [facility] Blood specimen (specimen) BLOOD SPECIMEN / Unknown 07/17/2017 1:08 PM HOSPITAL ACCOUNT MANAGER 07/17/2017 1:32 PM HOSPITAL ACCOUNT MANAGER Angela Corona MD LAB - CHEMISTRY ROYCE KLINE Performing Organization Address City/[facility]/ZIP Co de Phone Number [address] [phone] * (ABNORMAL) FERRITIN (07/17/2017 1:08 PM HOSPITAL ACCOUNT MANAGER) Only the most recent of2 resultswithin the time period is included. Ferritin 947(H) 22 - 275 ng/mL [facility] Blood specimen (specimen) BLOOD SPECIMEN / Unknown 07/17/2017 1:08 PM HOSPITAL ACCOUNT MANAGER 07/17/2017 1:32 PM HOSPITAL ACCOUNT MANAGER Angela Corona MD LAB - CHEMISTRY ROYCE KLINE Performing Organization Address [facility]/ZIP Co de Phone Number [address] [phone] * RETIC COUNT (07/17/2017 4:50 AM HOSPITAL ACCOUNT MANAGER) Reticulocyte % 1.0 0.4 - 2.5 % [facility] Reticulocyte Absolute 0.03 0.02 - 0.13 10? 6 /uL [facility] Blood specimen (specimen) BLOOD SPECIMEN / Unknown 07/17/2017 4:50 AM HOSPITAL ACCOUNT MANAGER 07/17/2017 4:57 AM HOSPITAL ACCOUNT MANAGER Angela Corona MD LAB - HEMATOLOGY RAFFY SNOWDEN Performing Organization Address [facility]/ZIP Co de Phone Number [address] [phone] * LEGIONELLA ANTIGEN URINE (07/16/2017 11:32 PM HOSPITAL ACCOUNT MANAGER) Legionella Antigen Urine Negative Negative [facility] Urine specimen (specimen) URINE / Unknown 07/16/2017 11:32 PM HOSPITAL ACCOUNT MANAGER 07/16/2017 11:58 PM HOSPITAL ACCOUNT MANAGER Narrative [facility] - 07/17/2017 11:08 AM HOSPITAL ACCOUNT MANAGER Comment: This assay detects Legionella pneumophila serogroup one (1) antigen. A negative test result does not rule out the possibility of Legionella infection due to other serogroups or species of Legionella. A positive result may indicate a recent or remote infection with serogroup 1. Resulting Lab: ?? [facility] [address] [place] [address] PH: [phone] Angela Corona MD LAB - MICROBIOLOGY O RDERABLES Performing Organization Address [facility]/ZIP Co de Phone Number [address] [phone] * PROTEIN URINE RANDOM QUANTITATIVE (07/15/2017 11:58 PM HOSPITAL ACCOUNT MANAGER) Protein Urine 57 Not Established mg/dL [facility] Urine specimen (specimen) URINE / Unknown 07/15/2017 11:58 PM HOSPITAL ACCOUNT MANAGER 07/16/2017 12:22 AM HOSPITAL ACCOUNT MANAGER Angela Corona MD LAB - URINE CHEMISTR Y ORDERABLES Performing Organization Address [facility] Co de Phone Number [address] [phone] * UREA NITROGEN URINE RANDOM (07/15/2017 11:58 PM HOSPITAL ACCOUNT MANAGER) Urea Nitrogen Random Urine 1,084 Not Established mg/dL [facility] Urine specimen (specimen) URINE / Unknown 07/15/2017 11:58 PM HOSPITAL ACCOUNT MANAGER 07/16/2017 12:22 AM HOSPITAL ACCOUNT MANAGER Angela Corona MD LAB - URINE CHEMISTR Y ORDERABLES Performing Organization Address [facility] Co de Phone Number [address] [phone] * OSMOLALITY URINE (07/15/2017 11:58 PM HOSPITAL ACCOUNT MANAGER) Osmolality Urine 533 50 - 1,200 mOsm/kg [facility] Urine specimen (specimen) URINE / Unknown 07/15/2017 11:58 PM HOSPITAL ACCOUNT MANAGER 07/16/2017 12:22 AM HOSPITAL ACCOUNT MANAGER Angela Corona MD LAB - URINE CHEMISTR Y ORDERABLES Performing Organization Address [facility]/ZIP Co de Phone Number [address] [phone] * EOSINOPHIL URINE SMEAR (07/15/2017 11:58 PM HOSPITAL ACCOUNT MANAGER) Eosin Stain Urine None None [facility] Urine specimen (specimen) 07/15/2017 11:58 PM HOSPITAL ACCOUNT MANAGER 07/16/2017 12:23 AM HOSPITAL ACCOUNT MANAGER Angela Corona MD LAB - URINE CHEMISTR Y ORDERABLES Performing Organization Address [facility] de Phone Number [address] [phone] * RUFUS STAINING PATTERNS REFLEXED (07/15/2017 5:04 AM HOSPITAL ACCOUNT MANAGER) Speckled Pattern 1:80 [facility] Note Comment [facility] Blood specimen (specimen) BLOOD SPECIMEN / Unknown 07/15/2017 5:04 AM HOSPITAL ACCOUNT MANAGER 07/15/2017 9:28 AM HOSPITAL ACCOUNT MANAGER Narrative [facility] - 07/18/2017 3:13 PM HOSPITAL ACCOUNT MANAGER A positive EDITH result may occur in healthy individuals (low titer) or be associated with a variety of diseases. ??See interpretation chart which is not all inclusive: Pattern ?Antigen Detected ??Suggested Disease Association ? Homogeneous ??DNA(ds,ss), ? SLE - High titers ? Nucleosomes, ? Histones ?Drug-induced SLE ? Speckled ? Sm, SALESPERSON SEWING MACHINES, SCL-70, ??SLE,MCTD,PSS (diffuse form), ? SS-A/SS-B ? Sjogrens ? Nucleolar ?SCL-70, PM-1/SCL ??High titers Scleroderma, ? PM/DM ? Centromere ?? Centromere ?PSS (limited form) w/Crest ? syndrome variable ? Nuclear Dot ??[id number] ??Primary Biliary Cirrhosis ? Nuclear ?GP210, ?Primary Biliary Cirrhosis Membrane ? yina A,B,C ? Angela Corona MD LAB - PATHOLOGY/CYTO LOGY ORDERABLES Performing Organization Address [facility] Co de Phone Number [facility]) [address] [place] [address] * (ABNORMAL) EDITH BLOOD SCREEN W/REFLEX TITER (07/15/2017 5:04 AM HOSPITAL ACCOUNT MANAGER) EDITH IFA Positive(A ) [facility] Comment: ? Negative ?? <1:80 ? Borderline ??1:80 ? Positive ?? >1:80 Blood specimen (specimen) BLOOD SPECIMEN / Unknown 07/15/2017 5:04 AM HOSPITAL ACCOUNT MANAGER 07/15/2017 9:28 AM HOSPITAL ACCOUNT MANAGER Narrative [facility] - 07/18/2017 3:13 PM HOSPITAL ACCOUNT MANAGER Performed at: ??01 - [facility] [address] [place], [place] ??[id number] Curing Pickling Packer: Erik Mcqueen PhD, Phone: ??[phone] Angela Corona MD LAB - CHEMISTRY ROYCE KLINE Performing Organization Address [facility] Co de Phone Number [facility] [address] [place] [address] * SMOOTH MUSCLE ANTIBODY (07/15/2017 5:04 AM HOSPITAL ACCOUNT MANAGER) F-Actin Antibody IgG 4.6 0.0 - 19.9 Units [facility] Comment: F-Actin Antibody Numeric Result Interpretation: ?<20.0 Units: ??Negative ?20.0 - 30.0 Units: ??Weak Positive ?>30.0 Units: ??Moderate to Strong Positive ? Blood specimen (specimen) BLOOD SPECIMEN / Unknown 07/15/2017 5:04 AM HOSPITAL ACCOUNT MANAGER 07/15/2017 9:22 AM HOSPITAL ACCOUNT MANAGER Angela Corona MD LAB - SEROLOGY ORDER KENDALL Performing Organization Address City/State/[facility] Co de Phone Number [facility] [address] [place] [address] * MICROSOMAL ANTIBODY LIVER/KIDNEY (07/15/2017 5:04 AM HOSPITAL ACCOUNT MANAGER) Liver-Kidney Microsomal Antibody <1.0 0.0 - 20.0 Units [facility] Comment: ?Negative ?0.0 - 20.0 ?Equivocal ??20.1 - 24.9 ?Positive ? >24.9 LKM type 1 antibodies are detected in patients with autoimmune hepatitis type 2 and in up to 8% of patients with chronic HCV infection. Blood specimen (specimen) BLOOD SPECIMEN / Unknown 07/15/2017 5:04 AM HOSPITAL ACCOUNT MANAGER 07/15/2017 9:28 AM HOSPITAL ACCOUNT MANAGER Narrative [facility]) - 07/18/2017 4:21 PM HOSPITAL ACCOUNT MANAGER Performed at: ??01 - [facility] [address] [place], [place] ??[id number] Curing Pickling Packer: Erik Mcqueen PhD, Phone: ??[phone] Angela Croona MD LAB - CHEMISTRY ROYCE KLINE Performing Organization Address City/[facility]/ZIP Co de Phone Number [facility]) [address] [place] [address] * (ABNORMAL) GGT (07/15/2017 5:04 AM HOSPITAL ACCOUNT MANAGER) GGT 66(H) 9 - 64 Units/L [facility] Blood specimen (specimen) BLOOD SPECIMEN / Unknown 07/15/2017 5:04 AM HOSPITAL ACCOUNT MANAGER 07/15/2017 9:22 AM HOSPITAL ACCOUNT MANAGER Angela Corona MD LAB - CHEMISTRY ROYCE KLINE Performing Organization Address City/[facility]/ZIP Co de Phone Number [address] [phone] * ECHO W DOPPLER AND COLOR FLOW (07/15/2017 12:00 AM HOSPITAL ACCOUNT MANAGER) Anatomical Region Laterality Modality Other 07/15/2017 Angela Corona MD ECHOCARDIOGRAPHY RAD IANT * HEPATITIS B SURFACE ANTIBODY (07/14/2017 10:11 PM HOSPITAL ACCOUNT MANAGER) Hepatitis B Virus Surface Antibody Non-react marlee Non-react marlee [facility] Comment: < 8 mIU/mL Hepatitis B surface Antibody (HBsAb). Nonreactive for HBsAb - individual is considered not immune to Hepatitis B Virus infection. Hepatitis B Surface Antibody Quantitative 0.2 <8.0 mIU/mL [facility] Comment: Hepatitis B Surface Antibody Numeric Result Interpretation: ? Nonreactive: ?<8.0 mIU/mL ? Indeterminate: ??8.0 - 12.0 mIU/mL ? Reactive: ?>12.0 mIU/mL ? Blood specimen (specimen) BLOOD SPECIMEN / Unknown 07/14/2017 10:11 PM HOSPITAL ACCOUNT MANAGER 07/14/2017 10:25 PM HOSPITAL ACCOUNT MANAGER Angela Corona MD LAB - CHEMISTRY ROYCE KLINE Performing Organization Address [facility] Co de Phone Number [address] [phone] * HEPATITIS B CORE ANTIBODY (07/14/2017 10:11 PM HOSPITAL ACCOUNT MANAGER) Pathologist [facility] HBc Antibody Total Non-reacti ve Non-reacti ve [facility] Blood specimen (specimen) BLOOD SPECIMEN / Unknown 07/14/2017 10:11 PM HOSPITAL ACCOUNT MANAGER 07/14/2017 10:25 PM HOSPITAL ACCOUNT MANAGER Angela Corona MD LAB - CHEMISTRY ROYCE KLINE Performing Organization Address [facility] Co de Phone Number [address] [phone] * HEPATITIS B SURFACE ANTIGEN W RFLX CONFIRMATION (07/14/2017 10:11 PM HOSPITAL ACCOUNT MANAGER) Pathologist [facility] Hepatitis B Virus Surface Antigen Non-reacti ve Non-reacti ve [facility] Blood specimen (specimen) BLOOD SPECIMEN / Unknown 07/14/2017 10:11 PM HOSPITAL ACCOUNT MANAGER 07/14/2017 10:25 PM HOSPITAL ACCOUNT MANAGER Angela Corona MD LAB - CHEMISTRY ROYCE KLINE Performing Organization Address [facility] Co de Phone Number [address] [phone] * HEPATITIS C ANTIBODY (07/14/2017 10:11 PM HOSPITAL ACCOUNT MANAGER) Pathologist [facility] Hepatitis C Antibody Non-react marlee Non-reac tive [facility] Comment: Hepatitis C Antibody screen indicates no serologic evidence of past or current infection with Hepatitis C Virus. Patients with unexplained liver disease who are immunocompromised or suspected of having acute Hepatitis C infection may benefit from Nucleic Acid Test (SUNIL) for Hepatitis C Viral RNA to confirm Hepatitis C status. Blood specimen (specimen) BLOOD SPECIMEN / Unknown 07/14/2017 10:11 PM HOSPITAL ACCOUNT MANAGER 07/14/2017 10:25 PM HOSPITAL ACCOUNT MANAGER Angela Corona MD LAB - CHEMISTRY ORDE RABANGELIA Performing Organization Address [facility]/ZIP Co de Phone Number [address] [phone] * HIV-1 HIV-2 ANTIGEN/ANTIBODY (07/14/2017 10:11 PM HOSPITAL ACCOUNT MANAGER) [facility] HIV Antigen/Antibod y 1 & 2 Non-reacti ve Non-react marlee [facility] Comment: Neither HIV-1 p24 Antigen nor HIV-1/HIV-2 Antibodies are detected. ? Blood specimen (specimen) BLOOD SPECIMEN / Unknown 07/14/2017 10:11 PM HOSPITAL ACCOUNT MANAGER 07/14/2017 10:25 PM HOSPITAL ACCOUNT MANAGER Angela Corona MD LAB - HEMATOLOGY ORD ERABLES Performing Organization Address [facility] Co de Phone Number [address] [phone] * (ABNORMAL) [id number] BLOOD PHENOTYPING PANEL (07/14/2017 10:11 PM HOSPITAL ACCOUNT MANAGER) Pathologist [facility] [id number] n 223(H) 90 - 200 mg/dL [facility] ([facility]) Phenotype (PI) Comment [facility] Comment: A1A Phenotype appears to be consistent [...] BLOOD SPECIMEN / Unknown 07/14/2017 10:11 PM HOSPITAL ACCOUNT MANAGER 07/14/2017 10:25 PM HOSPITAL ACCOUNT MANAGER Narrative [facility] ([facility]) - 07/19/2017 2:14 PM HOSPITAL ACCOUNT MANAGER Performed at: ??01 - [facility] [address] [place], [place] ??[id number] Curing Pickling Packer: Erik Mcqueen PhD, Phone: ??[phone] Performed at: ??02 - [facility] [address] ??[id number] Curing Pickling Packer: Leroy Sanchez MD, Phone: ??[phone] Angela Corona MD LAB - CHEMISTRY ROYCE KLINE Performing Organization Address [facility] Co de Phone Number [facility] ([facility] [address] [place] [address], [place] * TSH HI LOW REFLEX FREE T4 (04/23/2017 11:03 AM HOSPITAL ACCOUNT MANAGER) TSH 1.64 0.40 - 4.50 mIU/L [facility] Comment: Test Performed at: [employer] [place] [address] [place], [place] ??[phone] LEROY LOPEZ DO,MPH 04/23/2017 11:0 3 AM HOSPITAL ACCOUNT MANAGER 04/23/2017 11:03 AM HOSPITAL ACCOUNT MANAGER Puneet Faustin MD LAB - CHEMISTRY ROYCE KLINE Performing Organization Address [facility] de Phone Number [facility] ([facility] * ZINC BLOOD (04/23/2017 11:03 AM HOSPITAL ACCOUNT MANAGER) Zinc 68 60 - 130 mcg/dL [facility] ([facility] Comment: This test was developed and its analytical performance characteristics have been determined by [employer] [facility]. It has not been cleared or approved by the US Food and Drug Administration. This assay has been validated pursuant to the CLIA regulations and is used for clinical purposes. REPORT COMMENT: FASTING:YES Test Performed at: [employer] [facility] [address] [place], [place] ??[phone] YOSELYN CURRY MD,FCAP Blood specimen (specimen) BLOOD SPECIMEN / Unknown 04/23/2017 11:03 AM HOSPITAL ACCOUNT MANAGER 04/23/2017 11:03 AM HOSPITAL ACCOUNT MANAGER Puneet Faustin MD LAB - CHEMISTRY ROYCE KLINE Performing Organization Address City/[facility]/ZIP Co de Phone Number [facility] ([facility]) * (ABNORMAL) VITAMIN D 25-HYDROXY (04/23/2017 11:03 AM HOSPITAL ACCOUNT MANAGER) Vitamin D, 25 Hydroxy Total 11(L) 30 - 100 ng/mL [facility] ([facility]) Comment: Vitamin D Status ? 25-OH Vitamin D: Deficiency: ?<20 ng/mL Insufficiency: ? 20 - 29 ng/mL Optimal: ? > or = 30 ng/mL For 25-OH Vitamin D testing on patients on D2-supplementation and patients for whom quantitation of D2 and D3 fractions is required, the QuestAssureD(TM) 25-OH VIT D, (D2,D3), LC/MS/MS is recommended: order code 04428 (patients >2yrs). For more information on this test, go to: http://education.FilmLoop/faq/NTH194 (This link is being provided for informational/educational purposes only.) Test Performed at: [employer] [place] [address] [place], [place] ??[phone] LEROY LOPEZ DO,MPH Blood specimen (specimen) BLOOD SPECIMEN / Unknown 04/23/2017 11:03 AM HOSPITAL ACCOUNT MANAGER 04/23/2017 11:03 AM HOSPITAL ACCOUNT MANAGER Puneet Faustin MD LAB - CHEMISTRY ROYCE KLINE Performing Organization Address [facility]/State/ZIP Co de Phone Number [facility] ([facility]) * PATHOLOGY TISSUE FOR DERMATOLOGY (02/14/2017 12:00 [...] specimen consists of a punch biopsy measuring 1g2x0hm, bisected. Jar 0. MICROSCOPIC DESCRIPTION: There is spongiosis. In the dermis there is a mainly superficial perivascular lymphohistiocytic inflammatory infiltrate with eosinophils. A Grocott methenamine silver (GMS) stain is negative for fungal elements in the sections examined COMMENT: ??The histological differential diagnosis includes a contact dermatitis, nummular eczema, and an eczematous drug eruption. See direct immunofluorescence results, [id number]. Electronically signed out by Sonia Montoya M.D. 02/17/2017 1:33:47PM [facility] Comment: Performed at: Dermatopathology Laboratory [facility] - Department of Dermatology [address] [facility], [address] [place] [address] Phone number: [phone] FAX: [phone] Skin (tissue) specimen (specimen) 02/14/2017 02/15/2017 Narrative [facility] - 02/17/2017 1:34 PM CDT [...] Faustin MD LAB - PATHOLOGY/CYTO LOGY ORDERABLES [facility] [facility] [address] [facility]. 5th [place] [address], [facility] [phone] Care Teams Center Mgr Relationship Specialty Start Date End Date Cleo Funk DO [address] [place] [address] PCP - General Family Medicine 05/15/24
--- OUTSIDE RECORDS SUMMARY | 2024-05-25 02:58 | XMS_ITS | Encounter Summary ---
Author Organization [facility] Address [address] [facility] [place] [address] Care Team Providers Care Contract Technician Name Role Phone FunkRoseth Dylan EMERSON Primary Care Provider [phone]- [phone] Encounter Details Date Type Department Care Team [...] Recorded Patient Health Questionnaire-2 Score 1 05/15/2024 [facility] of Occupat ional Health - Occupational Stress [...] st Contact Info) Description 07/09/2024 12:30 PM DYNAMOMETER TESTER ENGINE Office Visit [facility] - GI [address] [place] [address], [facility] [place] [address] Twin Miller MD [address] [place] [address] [place] [address] 09/19/2024 2:00 PM CDT Office Visit [facility] - Orthopedic Surgery [address] [place] [phone] Larry Alexander MD [address] [facility] 280 [place] [address] documented as of this encounter Goals Goal [...] documented as of this encounter Care Teams Contract Technician Relationship Specialty Start Date End Date Cleo Funk DO [address] [facility] [address] [place] [address] PCP - General Family Medicine 05/15/24 documented as of this encounter
--- OUTSIDE RECORDS SUMMARY | 2024-05-25 02:58 | XMS_ITS | Encounter Summary ---
Author Organization [facility] Address [address] [facility] [place] [address] Care Team Providers Care Soccer Referee Name Role Phone Napoleon Birmingham Primary Care [...] US ABDOMEN LIMITED Twin Miller MD [address] [facility] 2L [place] [address] [address] Referral ID Status Reason Start Date Expiration Date Visits Re quested Visits Authorized [id number] Closed 03/21/2023 03/20/2024 1 1 Reason for [...] ABDOMEN LIMITED Twin Miller MD [address] [facility] 2L [place] [address] [facility] [address] [place] [address] Referral ID Status Reason Start Date Expiration Date Visits Re quested Visits Authorized [id number] Closed 03/21/2023 03/20/2024 1 1 Encounter Details Date Type Department Care Team (Latest Contact Info) Description 04/02/2024 11:00 AM CDT - 04/02/2024 11:59 PM CDT Hospital Encounter [facility] US [address] [place] [phone] Twin Miller MD [address] [place] [address] Discharge Disposition: Home or Self Care Social [...] and heating? Not hard at all 10/14/2023 [facility] of Occupat ional Health - Occupational Stress [...] place to sleep or slept in a mcc (including now)? No 10/14/2023 Sex and Gender [...] fluticasone propionate (Flonase) 50 MCG/ACT nasal spray [place] 1 (one) spray into each nostril once [...] st Contact Info) Description 07/09/2024 12:30 PM HIM TECH Office Visit [facility] - GI [address] [place] [address], [place] [address] Twin Miller MD [address] [place] [address] [place] [address] 09/19/2024 2:00 PM CDT Office Visit [facility] - Orthopedic Surgery [address] [place] [phone] Larry Alexander MD [address] [facility] 280 [place] [address] documented as of this encounter Goals Goal [...] DATE/TIME OF EXAM: ??04/02/2024 12:19 PM, LOCATION ??[facility] INDICATION: K75.81: Liver cirrhosis secondary to [...] DATE/TIME OF EXAM: 04/02/2024 12:19 PM, LOCATION [facility] INDICATION: K75.81: Liver cirrhosis secondary to [...] documented as of this encounter Care Teams Soccer Referee Relationship Specialty Start Date End Date Napoleon Birmingham PCP - General 10/13/23 05/14/24 documented as of this encounter
--- OUTSIDE RECORDS SUMMARY | 2024-05-25 02:58 | XMS_ITS | Encounter Summary ---
Author Organization [facility] Address [address] [place] [address] Care Team Providers Care Dependency Director Name Role Phone Napoleon Birmingham Primary Care Provider Unavailabl e Reason for Visit * Reason Onset Date Comments Follow-up 11/16/2023 Encounter Details Date Type Department Care Team ([facility] st Contact Info) Description 11/16/2023 Telephone [facility] - GI [address] [facility], [facility] [place] [phone] Twin Miller MD [address] [place] [address] OF GASTROENTEROLOGY [place], [place] [id number] Follow-up Social History Tobacco Use Types Packs/Day [...] and heating? Not hard at all 10/14/2023 [facility] of Occupat ional Health - Occupational Stress [...] place to sleep or slept in a residential (including now)? No 10/14/2023 Sex and Gender [...] 04/02. His , Trinity, had sent a Veronica message. Pile Driver Operator Barge Mounted had sent her a Veronica message back with times. Encouraged her to call or send a [facility] message back. Thanks. 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 DRILLER Office Visit [facility] - GI [address] [place] [address], [place] [address] Twin Miller MD [address] [place] [address] [place] [address] 09/19/2024 2:00 PM CDT Office Visit [facility] - Orthopedic Surgery [address] [facility] [place] [address] Larry Alexander MD [address] [facility] 280 [place] [address] documented as of this encounter Goals Goal [...] of this encounter Results * (ABNORMAL) PT-INR [facility] (04/02/2024 11:08 AM CDT) PT 17.9(H) 12.1 - 14.8 Seconds 04/02/2024 12:13 PM [facility] INR 1.5 See Comment 04/02/2024 12:13 PM [facility] Comment:The suggested therap eutic range for standard coumadin (warfarin) therapy is an INR of 2.0-3.0. For high-risk patients (Mechanical Mitral Valve Prosthesis, etc.), the suggested prophylactic therapeutic range is an INR of 2.5-3.5. Blood BLOOD SPECIMEN / Unknown Lab Venipuncture / Unknown 04/02/2024 11:08 AM CDT 04/02/2024 11:14 AM CDT Twin Miller MD LAB - COAGULAT ION ORDERABLES [facility] [address] [place] [address], [facility] [phone] * (ABNORMAL) COMPREHENSIVE METABOLIC PANEL (04/02/2024 11:08 [...] Miller MD LAB - CHEMISTR Y ORDERABLES [facility] [address] [place] [address], [facility] [phone] * (ABNORMAL) CBC WITH DIFFERENTIAL (04/02/2024 11:08 [...] 41.0 - 74.0 % 04/02/2024 1: PM [facility] Lymphocyte % 12.7(L) 17.0 [...] - 1.00 x10E9/L 04/02/2024 1:27 PM CDT [facility] Eosinophil Absolute 0.38 0.00 - 0.60 x10E9/L 04/02/2024 1:27 PM CDT [facility] Basophil Absolute 0.05 0.00 - 0.13 x10E9/L 04/02/2024 1:27 PM CDT [facility] Blood BLOOD SPECIMEN / Unknown Lab Venipuncture / Unknown 04/02/2024 11:08 AM CDT 04/02/2024 11:46 AM CDT Twin Miller MD LAB - HEMATOLO GY ORDERABLES Performing Organization Address City/[facility]/ZIP Co de Phone Number [address] [address], [facility] [phone] * ALPHA FETOPROTEIN BLOOD TUMOR MARKER (04/02/2024 11:08 AM CDT) Alpha-Fetoprote in Tumor Marker <2.0 <=8.3 ng/mL 04/02/2024 12:37 PM CDT [facility] Comment: AFP values will vary depending on testing procedure used. Results are not comparable across different methods. AFP values obtained by [facility] using an Farias Alinity Immunoassay. 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
--- OUTSIDE RECORDS SUMMARY | 2024-05-25 02:58 | XMS_ITS | Encounter Summary ---
Author Organization [facility] Address [address] [facility] [place] [address] Care Team Providers Care Noc Technician Name Role Phone Cleo Funk DO Primary Care Provider [phone]- [phone] Encounter Details Date Type Department Care Team (Latest Contact Info) Description 05/15/2024 12:59 PM WAITSTAFF CAPTAIN - 05/15/2024 11:59 PM [facility] Hospital Encounter [facility] [address], [address] [place] [phone] Larry Alexander MD [address] [place], [place] [phone] Discharge Disposition: Home or Self Care Social [...] Recorded Patient Health Questionnaire-2 Score 1 05/15/2024 [facility] of Occupat ional Health - Occupational Stress [...] place to sleep or slept in a m[facility]p (including now)? No 10/14/2023 Sex and Gender [...] fluticasone propionate (Flonase) 50 MCG/ACT nasal spray [place] 1 (one) spray into each nostril once [...] st Contact Info) Description 07/09/2024 12:30 PM WAITSTAFF CAPTAIN Office Visit [facility] - GI [address] [place] [address], [facility] [place] [address] Twin Miller MD [address] [place] [address] [place] [address] 09/19/2024 2:00 PM CDT Office Visit [facility] - Orthopedic Surgery [facility] [place] [address] Larry Alexander MD [address] [facility] 280 [place] [address] documented as of this encounter Goals Goal Patient Goal Type Associated Problems Recent Progress Patient-Stated? Author Medication Management General On track(03/20/2 023 12:04 PM CDT) No Monty Gentile, [...] KNEE LEFT 3VW Routine 05/15/2024 1:22 PM WAITSTAFF CAPTAIN Left knee pain, unspecified chronicity documented in this encounter Results * XR Knee Left 3Vw (05/15/2024 1:22 PM WAITSTAFF CAPTAIN) Anatomical Region Laterality Modality Lower Extremity Radiographic Shama ging 05/15/2024 1:51 PM WAITSTAFF CAPTAIN Narrative 05/15/2024 1:51 PM WAITSTAFF CAPTAIN Procedure: XR KNEE LEFT 3VW ??Exam Date: ??05/15/2024 1:23 PM ?? Location: ??[facility] Indication: M25.562: Pain in left knee Findings/impression: [...] LEFT 3VW Exam Date: 05/15/2024 1:23 PM Location:[facility] Indication: M25.562: Pain in left knee Findings/impression: [...] documented as of this encounter Care Teams Noc Technician Relationship Specialty Start Date End Date Cleo Funk DO [address] [facility] [address] [place] [phone] PCP - General Family Medicine 05/15/24 documented as of this encounter
--- OUTSIDE RECORDS SUMMARY | 2024-05-25 02:59 | XMS_ITS | Encounter Summary ---
Author Organization [facility] Address [address] [place] [address] Care Team Providers Care Decator Operator Name Role Phone Unknown, Provider Primary Care Provider Unavaila Napoleon Cantu Primary Care Provider Unavailabl e Reason for Visit * Auth/Cert (Routine) Specialty Diagnoses / Procedures Referred By Contac t Referred To Contact Diagnoses Sepsis Referral ID Status Reason Start Date Expiration Date Visits Re quested Visits Authorized [id number] 1 1 Encounter Details Date Type Department Care Team (Latest Contact Info) Description 10/12/2023 4:19 AM CDT - 11/03/2023 2:43 PM CDT Hospital Encounter [facility] Ortho Med Surg [address] [place], [place] [id number] Aaron Hook, [address] [place] [id number] Omi Fortune MD [address] [place] [address] Jayme Rodriguez MD [address] [place] [address] Ronna Barber MD [address] [place], [place] [id number] Constantino Alvarez MD [address] [place] [address] Dipak Padilla MD [address] [facility] [address] [place] [address] Ariel Martinez MD [address] [facility] [place] [address] Infectious Disease Discharge Disposition: Custodial Facility Social History Tobacco Use Types Packs/Day [...] and heating? 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 ACTIVATED [...] Jung Aerosphere 160-9-4.8 MCG/ACT inhaler Generic drug: uweqlqi-sbrdochmske-xhcckjewcv Inhale 2 (two) puffs by mouth 2 [...] MCG/ACT nasal spray Commonly known as: Flonase Warren 1 (one) spray into each nostril once [...] and red peppers Scopace [Scopolamine] Other and SHORT RANGE AIR DEFENSE ARTILLERY Dysfunction delirium Tobramycin Eye Itching red around the eyes, puffy, itchy DISCHARGE INSTRUCTIONS Follow up with provider Follow Up Instructions for Patient: Other (See Comment) Why you were hospitalized Your discharge diagnosis is: SOB (shortness of breath) [039487] Diet instructions May substitute facility diet equivalent Diet for Special Occasions May disregard therapeutic diet on special occasions per facility policy and forest landscape ecology professor. Oxygen Saturation PRN Distress Oxygen Saturation - Check PRN for respiratory distress or change in patients condition per forest landscape ecology professor. Notify Physician SBP greater than 180 SBP [...] the schedule set up by the provider. Custodial Facility (SNF) Admission José Miguel is to be admitted to a Custodial Facility. José Miguel has been examined and does not have any emergency medical conditions. Physician Certification of Need I certify that post hospital Custodial Facility services are required to be given on an inpatient basis because of the patient's need for fci facility care on a continuous basis forthe [...] fluticasone propionate (Flonase) 50 MCG/ACT nasal spray Warren 1 (one) spray into each nostril once [...] 11/03/23 1200 Visit Type Assessment Date 11/03/23 Literature Professor Visiting Patient Mustapha Pastoral Jesus Manuel Reason for Visit Follow Up Pastoral Care Visit Type(s) Follow Up Encounter Type Patient Interventions Pastoral Care Conversation Plan/Outcome Plan Will Follow as Needed * Radha Malone MSW - 11/03/2023 10:39 AM CDT Facility Transfer Note Final MD anticipates discharge today. [facility] able to accommodate once pt with discharge orders written, Covid test done and not detected (done), and pt with a recent BM. Once above completed nrsg to please arrange own ambulance and notify pts spouse of time arranged : Trinity Keys @[phone]. [facility] hs no official cut off time,however, please arrange as soon as able. Ss assisted nrsg staff with completion of pcs/ amb form and faxed to [facility] headquarters with face sheet. Level of Care: Skilled Rehab Payor Source: Managed Care Plan Facility Name: (include name of person confirming admission): per pt/fam request pt to transfer to [facility]. Per fac admissions Ricardo pt to go to room 322. Ss spke with Ricardo and she is aware MD anticipates discharge today/ nrsg contact info provided if fac with needs prior to nrsg f/u. Per Ricardo pt ok to transfer. NH Made Aware of Special Needs (if applicable): N/A RN Call Report to: [phone] RN Fax D/C Orders to: [phone] Transportation: :Amb recommended by therapy. Transport recommendations appreciated. -for ambulance transport @ discharge, Staff will need to arrange scad @ the [facility] transfer line # which is [phone] option 6, for transfer. Certificate of Medical Necessity rationale: refer to completed amb form. Date/time of transfer: MD anticipates today per updates. MD to see and advise. Accepting MD: Dr Chai Johnston- please call fac. if MD contact info needed. Completed and Signed [id number] (if applicable): n/a Family/Other Notified of Transfer (name/phone): ss updated pts spouse spouse to advise pt. Per spouse request pt to transfer to [facility] and nrs. Pt/fam ok with discharge when MD with orders. Authorization Skilled Care: Authorization for Custodial Facility: Per Insurance auth approved. [id number] Approved 11/01 - 11/14/2023 (Aetna) Authorization for Transportation:Authorization for Transportation: per no Auth required for ambulance per insurance. (pt has Aetna) Verified Qualifying Stay(Skilled Only): NOT APPLICABLE / pt has Aetna and insurance approved snf. Patient discharged to SNF under Medicare SNF 3-day waiver? No Comments: @ discharge nrsg to please send fac orders,chart and discharge summary . CHRIS Garcia ext. [phone]. * Aneta Whittington MD - 11/03/2023 10:32 [...] insurance authorization Patient follows with cardiology at [facility] Stopped aspirin (bleeding risk). Continue Eliquis Changed [...] 99 99 99 - - - - [id number] 26.5* 34.5* 33.4* 31.4* 31.4* - - [...] and Eliquis Code status: Full * Monisha Emanuel), DONTAE Benavides - 11/03/2023 8:17 AM CDT Care Coordination Progress Note Anticipated level of care at discharge: Shelter - Skilled Facility, Home Health Care Comment: see progress sect for all snf referrals made: Anticipated level of care provider: None: Anticipated Discharge Date: 11/02/23: Discharge Plan: discharge to SNF in [facility] pending insurance auth. ID#[id number], See SW notes for discharge details UPDATED 1013 Insurance auth approved. [id number] Approved 11/01 - 11/14/2023 Orientation Level: Oriented X4: Family Support (Name and Phone): Extended Emergency Contact Information Primary Emergency Contact: Trinity Keys Address: [address] [place] [address] [place] [address] [facility] Mobile Relation: Spouse Fighting Vehicle Infantryman needed? No Transportation at Discharge: Ambulance: READMISSION [...] of patient's performance/location end of session. Williams, Roofing Contractor, present to assist throughout the session. 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 Stopped aspirin (bleeding risk). Continue Eliquis Changed Lopressor to Toprol XL 50 mg QD Continue Losartan 25 mg, Spironolactone 12.5 mg, monitor renal function Supplement Mag again today Aneta Whittington MD 11/02/2023 * Radha Malone MSW - 11/02/2023 9:51 AM CDT New Facility Referral Follow-up Level of Care (SNF/Medicaid NH/Rehab/Watch And Clock Maker And Repairer Care/LTACH): snf requested/ spouse is interested in [address] Below fac with approval and an [...] Selected Services Address Phone Fax Patient Preferred [facility] Custodial [address] [facility] [address] -- [facility] and [facility])Pending - Request Sent N/A [address] [facility] [address] [phone] -- Current Capacity last updated by Chantel Lepe on 04/28/2022 1231 [address] [facility] Declined Facility cannot provide for patient's needs, per admissions unable to accommodate. N/A [address] [phone] -- [facility] Declined managed care heavy N/A 27 [facility] [address] [phone] -- If Medicare-3 day qualifying stay verified: pt has Aetna and will need an Auth. NPI info provided to pts willie Benavides. Willie to obtain snf Auth. See cm note for all Auth updates. NPI for fac is [id number]/ Md assigned will bed Dr Preston Bradshaw [...] 99 99 99 - - - - [id number] 34.5* 33.4* 31.4* 31.4* - - - [...] Note Anticipated level of care at discharge: Shelter - Skilled Facility, Home Health Care Comment: [...] found, insurance auth submitted. Pending auth ID# [id number] Orientation Level: Oriented X4: Family Support (Name and Phone): Extended Emergency Contact Information Primary Emergency Contact: Trinity Keys Address: [address] [place] [address] [place] [address] [facility] Mobile Relation: Spouse Fighting Vehicle Infantryman needed? 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 Right [...] on dc Patient follows with cardiology at [facility] Stopped aspirin (bleeding risk). Continue Eliquis Changed Lopressor to Toprol XL 50 mg QD Continue Losartan 25 mg, Spironolactone 12.5 mg Supplement Mag Aneta Whittington MD 11/01/2023 * Monisha (Willie)Makayla RN - 11/01/2023 9:33 AM CDT Care Coordination Progress Note Anticipated level of care at discharge: Shelter - Skilled Facility, Home Health Care Comment: see progress sect for all snf referrals made: Anticipated level of care provider: None: Anticipated Discharge Date: 11/02/23: Discharge Plan: to SNF in [facility] area. Referrals have been made, no accepting SNF at this time. See SW notes for further discharge details. Patient here from home with his spouse prior to admit. Orientation Level: Oriented X4: Family Support (Name and Phone): Extended Emergency Contact Information Primary Emergency Contact: Trinity Keys Address: [address] [place] [address] [place] [address] [facility] Mobile Relation: Spouse Fighting Vehicle Infantryman needed? No Transportation at Discharge: Ambulance: READMISSION [...] the bed macias. PT offered up to [facility] however, pt said he needed to go [...] 99 99 99 - - - - [id number] 34.5* 33.4* 31.4* 31.4* - - - [...] Facility Referral Follow-up Level of Care (SNF/Medicaid NH/Rehab/Watch And Clock Maker And Repairer Care/LTACH): snf requested. Ss provided nrsg contact# to [place] admissions,Francia, and to [place] rehab, Ricardo, june left for [place] admissions. Ss awaiting assessments and rtn calls. Ss updated pts spouse Trinity Keys @ [phone]. Pt/ and fam would like pt to transfer to snf closer to home, [place] Aetna facilities being pursued per request. Referrals initiated: Continued Care and Services - Admitted Since 10/12/2023 Destination Service Provider Request Status Selected Services Address Phone Fax Patient Preferred [facility]Pending - Request Sent N/A [address] [facility] [phone] -- Current Capacity last updated by Chantel Lepe on 04/28/2022 1237 [address] [facility] Pending - Request Sent N/A [address] [facility] [phone] -- [facility] Declined Facility cannot provide for patient's needs, per admissions unable to accommodate. N/A [address] [phone] -- [facility] managed care heavy N/A [address] [facility] [address] [phone] -- If Medicare-3 day qualifying stay verified: pt has Aetna and will need an Auth to transfer to any snf. [facility] to obtain snf Auth once fac with approval with an available bed. monitoring facility responses Comments/changes:@ discharge nrsg to please send fac orders,chart and discharge summary. Name: CHRIS Garcia Phone: [phone] ss updated cm Makayla. * Tiffany Fortune [...] 99 99 99 - - - - [id number] 34.5* 33.4* 31.4* 31.4* - - - [...] and now around the right wrist - bonding machine tender to touch Intake/Output Summary (Last [...] (Diabetic Use) oral gel, Oral, PRN HYDROcodone-acetaminophen ([place]) 7.5-325 MG tablet 1 tablet, Oral, q6h [...] XL 50 mg daily - Carly 13. Michadu cirrhosis continue rifaximin will stop lactulose 14. Hypokalemia repleted 15. 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 Right [...] on dc Patient follows with cardiology at [facility] Stop aspirin; pt on full-dose OACT and [...] notified of patient's performance/location end of session. Roofing Contractor Toni, present to assist throughout the session. 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 Right [...] 99 99 99 - - - - [id number] 34.5* 33.4* 31.4* 31.4* - - - [...] Readmission Risk Score: If there is no COAL HAULER Total Score indicated, this patient has yet [...] on dc Patient follows with cardiology at [facility] Skip Bello MD 10/29/2023 * Sonia Hunter [...] for Technique;Requires Physical Cues for Technique (to [facility]) Transfer Device: Gait belt;Walker-2 Wheeled Mobility: Distance [...] of patient's performance/location end of session. Williams, Roofing Contractor, present to assist throughout the session. 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 Right [...] Readmission Risk Score: If there is no COAL HAULER Total Score indicated, this patient has yet [...] on dc Patient follows with cardiology at [facility] Aneta Whittington MD 10/28/2023 * Rebecca Perez RN - 10/28/2023 10:18 AM CDT Care Coordination Progress Note Anticipated level of care at discharge: Shelter - Skilled Facility, Home Health Care Comment: see progress sect for all snf referrals made: Anticipated level of care provider: None: Anticipated Discharge Date: 10/31/23: Discharge Plan: SNF near [place], [place] No accepting facility at this time. Please see SW notes for further discharge details. Orientation Level: Oriented X4: Family Support (Name and Phone): Extended Emergency Contact Information Primary Emergency Contact: Trinity Keys Address: [address] [place] [address] [place] [address] [facility] Mobile Relation: Spouse Fighting Vehicle Infantryman needed? 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 . Pt will be unable to transfer until Auth rcd and fac. with approval with an available bed, and pt medically stable for transfer. Ss updated spouse pt was denied @ [facility]. Spouse has ss contact # and planned to look up reviews for other options and advise if with any changes in choices. SS spke with Nicolas with [facility] admissions yesterday,she planned to advise her bldg to advise ss if able to accommodate. Nicolas asked for ss contact # / provided. Ss awaiting rtn call. Referrals initiated: Continued Care and Services - Admitted Since 10/12/2023 Destination Service Provider Request Status Selected Services Address Phone Fax Patient Preferred [facility] Pending - Request Sent N/A [facility] [address] [phone] -- [facility] and [facility])Pending - Request Sent N/A [address] [facility] [phone] -- Current Capacity last updated by Chantel Lepe on 04/28/2022 1237 [address] [facility] Pending - Request Sent N/A [address] [facility] [phone] -- [facility] Declined Facility cannot provide for patient's needs, per admissions unable to accommodate. N/A [address] [address] -- If Medicare-3 day qualifying stay verified: Yes pt .has Aetna ,and will need an [facility] cm / team to obtain snf Auth once fac with approval with an available bed. monitoring facility responses Comments/changes:@ discharge nrsg to please send fac orders,chart and discharge summary. This worker will be off 10/31/23Tuesday, the dept will be closed in observance of the holiday, therewill be proposition player available if needs arise. This worker plans rtn on 11/01/23Tuesday. 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 Right [...] Note Anticipated level of care at discharge: Shelter - Skilled Facility, Home Health Care Comment: see progress sect for all snf referrals made: Anticipated level of care provider: None: Anticipated Discharge Date: 10/28/23: Discharge Plan: SNF near [place], [place] No accepting facility at this time. Please see SW notes for further discharge details. Orientation Level: Oriented X4: Family Support (Name and Phone): Extended Emergency Contact Information Primary Emergency Contact: Trinity Keys Address: [address] [place] [address] [place] [address] [facility] Mobile Relation: Spouse Fighting Vehicle Infantryman needed? 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 History of PAF on Eliquis REGISTER OF WILLS 4. RADHA on CKD 5. History of [...] Facility Referral Follow-up Level of Care (SNF/Medicaid NH/Rehab/Watch And Clock Maker And Repairer Care/LTACH): snf requested. Ss spke with pts spouse Trinity Keys @ [phone], this worker asking for additional fac choices. Spouse to advise if with other choices. Additional fac below provided by family/ referral made. Ss to f/u with pt once rtn calls rcd. Ss provided ss contact# for f/u. This worker left mess with the rn new grad @ [facility] for Emma fac residential program coordinator. Ss awaiting rtn call. Pt has been @ fac in past. Pt has Aetna and will need a contracted fac. [facility] to obtain snf Auth once fac with approval with an available bed, and pt/fam agreeable to plcmnt choice. See cm note for all Auth updates. Referrals initiated: Continued Care and Services - Admitted Since 10/12/2023 Destination Service Provider Request Status Selected Services Address Phone Fax Patient Preferred [facility] Pending - Request Sent N/A [address] [phone] -- [facility] Pending - Request Sent N/A 27 [facility] [address] [phone] -- If Medicare-3 day qualifying stay verified: pt has Aetna and will need Auth. See cm note for all Auth updates. monitoring facility responses Comments/changes:@ discharge nrsg to please send fac orders, chart and discharge summary. Name: CHRIS Garcia Phone: [phone] * Max Garzon, RT - 10/26/2023 6:20 AM CDT Patient only wore bipap 18/8 for 1.5 hours last night. He says the pressure is still too much. Placed on 1L NC and monitored. 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 Pt has been [...] Selected Services Address Phone Fax Patient Preferred [facility] Pending - Request Sent N/A [id number] [phone] -- If Medicare-3 day qualifying stay verified: pt has Aetna and will need an Auth. monitoring facility responses Comments/changes:@ discharge nrsg to please send fac orders, chart and discharge summary. Name: CHRIS Garcia Phone: [phone] * Sarahi Pena RCP - 10/25/2023 12:56 [...] of patient's performance/location end of session. Cyndie, Roofing Contractor, present to assist throughout the session. Please [...] Psoriasis S/P PICC central line placement 02/13/2019 [facility] VAT R basilic Seizures (HCC) Squamous cell carcinoma VRE (vancomycin resistant enterococcus) culture positive 04/29/2019 rectal swab+ Allergies Allergen Reactions Penicillins Skin Reactions and Swelling Levaquin [Levofloxacin] Eye Itching red around the eyes , puffy, itchy Green [Peppers] GI Discomfort Green and red peppers Scopace [Scopolamine] Other and SHORT RANGE AIR DEFENSE ARTILLERY Dysfunction delirium Tobramycin Eye Itching red around [...] No Stress: No Stress Concern Present (10/14/2023) [place] [employer] - Occupational Stress Questionnaire [...] (Diabetic Use) oral gel, Oral, PRN HYDROcodone-acetaminophen ([place]) 5-325 MG tablet 1 tablet, Oral, q4h [...] bacteremia 3. History of PAF on Eliquis REGISTER OF WILLS 4. RADHA on CKD 5. 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 This worker spke with pts. spouse Trinity Keys @ [phone], last week,,and below [facility]/ [facility]/ [facility] per spouse requestedif new snf needed @ time of discharge. Fac has an [employer] contract.Fac willing to review for possible admit. Ss updated fac pt is not yet stable for discharge currently remains in the ICU. MD's following for medical stability. Ss will continue to send updates for fac review. Rtn call rcd from Moni with [facility]/ [facility] admissions, ss explained pt is NOT yet [...] Selected Services Address Phone Fax Patient Preferred [facility] Pending - Request Sent N/A [id number] [facility] [address] [facility] [phone] -- If Medicare-3 day qualifying stay verified: pt has Aetna and will need an Auth to transfer to any snf. [facility] to obtain snf Auth if to snf once fac with approval with an available bed. See note for all Auth updates if pt to snf @ time of discharge. monitoring facility responses Comments/changes:if to snf nrsg to please send fac orders,chart and discharge summary. Name: CHRIS Garcia Phone: [phone] * Beata Encarnacion - 10/24/2023 3:20 PM [...] No history of ST services documented in [facility] or care everywhere. This Admission: 10/16/2023: Clinical [...] Thank you for this referral. 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 Please see SW notes for further discharge details Orientation Level: Oriented X4: Family Support (Name and Phone): Extended Emergency Contact Information Primary Emergency Contact: Trinity Keys Address: [address] [place] [address] [place] [address] [place] Relation: Spouse Fighting Vehicle Infantryman needed? No Transportation at Discharge: Ambulance: READMISSION [...] replaced due to continued urinary retention. 10/16: HIGH ENERGY FORMING EQUIPMENT OPERATOR called overnight due to AMS. Given narcan, [...] 99 99 99 - - - - [id number] 34.5* 33.4* 31.4* 31.4* - - - [...] and red peppers Scopace [Scopolamine] Other and SHORT RANGE AIR DEFENSE ARTILLERY Dysfunction delirium Tobramycin Eye Itching red around [...] No Stress: No Stress Concern Present (10/14/2023) [place] [employer] - Occupational Stress Questionnaire [...] bacteremia 3. History of PAF on Eliquis REGISTER OF WILLS 4. RADHA on CKD 5. History of [...] exam Yanira Macias MD * Nora Raza [facility] - 10/24/2023 3:51 AM CDT José Miguel [...] usually to place. 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 Max, Roofing Contractor, present to assist throughout the session. Please refer to the Filed Flowsheet for further details. Refer to Plan of Care for PT goals. If this is the last Physical Therapy visit, this note serves as the discharge summary. [phone] * Sadia Otoole - 10/23/2023 12:31 PM CDT 10/23/23 1200 Visit Type Assessment Date 10/23/23 Literature Professor Visiting Patient SJR Pastoral Care Reason [...] and red peppers Scopace [Scopolamine] Other and SHORT RANGE AIR DEFENSE ARTILLERY Dysfunction delirium Tobramycin Eye Itching red around [...] No Stress: No Stress Concern Present (10/14/2023) [place] [employer] - Occupational Stress Questionnaire [...] bacteremia 3. History of PAF on Eliquis REGISTER OF WILLS 4. RADHA on CKD 5. History of [...] replaced due to continued urinary retention. 10/16: HIGH ENERGY FORMING EQUIPMENT OPERATOR called overnight due to AMS. 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 This Admission: 10/16/2023: Clinical [...] Thank you for this referral. Enid Wynne MA,JM-VP HR DIVERSITY 10/22/2023 9:10 AM [id number] * Yanira Macias [...] and red peppers Scopace [Scopolamine] Other and SHORT RANGE AIR DEFENSE ARTILLERY Dysfunction delirium Tobramycin Eye Itching red around [...] No Stress: No Stress Concern Present (10/14/2023) [place] [employer] - Occupational Stress Questionnaire [...] bacteremia 3. History of PAF on Eliquis REGISTER OF WILLS 4. RADHA on CKD 5. History of [...] replaced due to continued urinary retention. 10/16: HIGH ENERGY FORMING EQUIPMENT OPERATOR called overnight due to AMS. Given narcan, [...] Weight Method : Bed scale (10/14/23 0643) [place] Body Weight IBW/lb (Calculated) Male: 171.904 BMI: [...] Pain affecting intake: No Estimated Needs: KCAL: 1904-3179 based on 15-20 kcal/kg actual wt Protein [...] Note Anticipated level of care at discharge: Shelter - Skilled Facility, Home Health Care Comment: see progress sect for all snf referrals made: Anticipated level of care provider: None: Anticipated Discharge Date: 10/28/23: Discharge Plan: Patient remains hospitalized at this time, and discharge is pending hospital course. Discharge plans are to transfer to f[facility] when medically stable for discharge. CM will continue to follow for discharge planning needs. Orientation Level: Oriented X4: Family Support (Name and Phone): Extended Emergency Contact Information Primary Emergency Contact: Trinity Keys Address: [address] [place] [address] [place] [address] [facility] [place] Relation: Spouse Fighting Vehicle Infantryman needed? No Transportation at Discharge: Ambulance: READMISSION [...] and red peppers Scopace [Scopolamine] Other and SHORT RANGE AIR DEFENSE ARTILLERY Dysfunction delirium Tobramycin Eye Itching red around [...] No Stress: No Stress Concern Present (10/14/2023) [place] [employer] - Occupational Stress Questionnaire [...] bacteremia 3. History of PAF on Eliquis REGISTER OF WILLS 4. RADHA on CKD 5. History of [...] exam Yanira Macias MD * Enid Kearns, VP HR DIVERSITY - 10/21/2023 9:45 AM CDT MODIFIED BARIUM [...] Psoriasis S/P PICC central line placement 02/13/2019 [facility] VAT R basilic Seizures (HCC) Squamous cell carcinoma VRE (vancomycin resistant enterococcus) culture positive 04/29/2019 rectal swab+ Pertinent History: No history of ST services documented in [facility] or care everywhere. This Admission: 10/16/2023: Clinical [...] Thank you for this referral. Enid Wynne MA,CCC-VP HR DIVERSITY 10/21/2023 11:15 AM [id number] * Jeanmarie Phan [...] of patient's performance/location end of session. No, Roofing Contractor, present to assist throughout the session. Please [...] serves as the discharge summary. 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 10/16: HIGH ENERGY FORMING EQUIPMENT OPERATOR called overnight due to AMS. Given narcan, [...] spke with pts. spouse Trinity Keys @ [phone], last week,,and below fac/ [facility]/ [facility] per spouse requestedif new snf needed @ time of discharge. Fac has an [employer] contract.Fac willing to review for possible admit. Ss updated fac pt is not yet stable for discharge currently remains in the ICU. MD's following for medical stability. Ss will continue to send updates for fac review. Rtn call rcd from Moni with [facility]/ [facility] admissions, ss explained pt is NOT [...] Selected Services Address Phone Fax Patient Preferred [facility] Pending - Request Sent N/A [id number] [facility] [address] [place] [phone] -- If Medicare-3 day qualifying stay [...] and discharge summary. Name: CHRIS Garcia Phone: [phone] * Jayme Rodriguez MD - 10/20/2023 6:25 [...] Psoriasis S/P PICC central line placement 02/13/2019 [facility] VAT R basilic Seizures (HCC) Squamous cell carcinoma VRE (vancomycin resistant enterococcus) culture positive 04/29/2019 rectal swab+ Allergies Allergen Reactions Penicillins Skin Reactions and Swelling Levaquin [Levofloxacin] Eye Itching red around the eyes , puffy, itchy Green [Peppers] GI Discomfort Green and red peppers Scopace [Scopolamine] Other and SHORT RANGE AIR DEFENSE ARTILLERY Dysfunction delirium Tobramycin Eye Itching red around [...] No Stress: No Stress Concern Present (10/14/2023) [place] [employer] - Occupational Stress Questionnaire [...] bacteremia 3. History of PAF on Eliquis REGISTER OF WILLS 4. RADHA on CKD 5. History of [...] Psoriasis S/P PICC central line placement 02/13/2019 [facility] VAT R basilic Seizures (HCC) Squamous cell carcinoma VRE (vancomycin resistant enterococcus) culture positive 04/29/2019 rectal swab+ Pertinent History: No history of ST services documented in [facility] or care everywhere. This Admission: 10/16/2023: Clinical [...] Thank you for this referral. 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 10/16: HIGH ENERGY FORMING EQUIPMENT OPERATOR called overnight due to AMS. Given narcan, [...] plan. Patient will be removed from the EVS ATTENDANT list. 30 minutes spent on patient assessment, [...] replaced due to continued urinary retention. 10/16: HIGH ENERGY FORMING EQUIPMENT OPERATOR called overnight due to AMS. Given narcan, [...] Note Anticipated level of care at discharge: Shelter - Skilled Facility, Home Health Care Comment: see progress sect for all snf referrals made: Anticipated level of care provider: None: Anticipated Discharge Date: 10/21/23: Discharge Plan: see above, pt with NGT, (GJ tube guard captain noted), IV abx, IVF's at 75ml/hr, lactulose, FMS, SW following for SNF in [place] once medically stable per family request. Orientation Level: Oriented to Person;Oriented to Place;Disoriented to Time;Disoriented to Situation: Family Support (Name and Phone): Extended Emergency Contact Information Primary Emergency Contact: Trinity Keys Address: [address] [place] [address] [place] [address] [facility] [place] Relation: Spouse Fighting Vehicle Infantryman needed? No Transportation at Discharge: Ambulance: READMISSION RISK SCORE is 15 at 1:41 PM 10/19/2023.: Name: Makayla, Renewable Energy Division Manager/RN/BSN * Yanira Macias MD - 10/19/2023 12:24 [...] and red peppers Scopace [Scopolamine] Other and SHORT RANGE AIR DEFENSE ARTILLERY Dysfunction delirium Tobramycin Eye Itching red around [...] No Stress: No Stress Concern Present (10/14/2023) [place] [employer] - Occupational Stress Questionnaire [...] bacteremia 3. History of PAF on Eliquis REGISTER OF WILLS 4. RADHA on CKD 5. History of [...] Last Weight Method : Bed scale (10/14/23642) [place] Body Weight IBW/lb (Calculated) Male: 171.904 BMI: [...] Pain affecting intake: No Estimated Needs: KCAL: 8049-0613 based on 15-20 kcal/kg actual wt Protein [...] of patient's performance/location end of session. No, Roofing Contractor, present to assist throughout the session. Please refer to the Filed Flowsheet for further details. Refer to Plan of Care for PT goals. If this is the last Physical Therapy visit, this note serves as the discharge summary. 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 spouse Trinity Keys @ [phone], last week,,and below [facility]/ [facility]/ [facility] per spouse requestedif new snf needed @ time of discharge. Fac has an [employer] contract.Fac willing to review for possible admit. Ss updated fac pt is not yet stable for discharge currently remains in the ICU. MD's following for medical stability. Ss will continue to send updates for fac review. Rtn call rcd from Moni with [facility]/ [facility] admissions, ss explained pt is NOT yet [...] Selected Services Address Phone Fax Patient Preferred [facility] Pending - Request Sent N/A [id number] [facility] [address] [phone] -- If Medicare-3 day qualifying stay verified: pt has Aetna and will need an Auth to transfer to any snf. [facility] cm to obtain snf Auth if to snf once fac with approval with an available bed. See cm note for all Auth updates if pt to snf @ time of discharge. monitoring facility responses Comments/changes:if to snf nrsg to please send fac orders,chart and discharge summary. Name: CHRIS Garcia Phone: [phone] * Geraldine Gonzalez, OT - 10/19/2023 11:27 [...] Psoriasis S/P PICC central line placement 02/13/2019 [facility] VAT R basilic Seizures (HCC) Squamous cell carcinoma VRE (vancomycin resistant enterococcus) culture positive 04/29/2019 rectal swab+ Pertinent History: No ST services provided via [facility] or Care Everywhere. This Date: Vitals: Date: [...] Thank you for this referral. Corinna Cota VP HR DIVERSITY student 10/19/2023 11:24 AM Associated attestation - Enid Kearns SLP - 10/19/2023 11:27 AM CDT Direct supervision provided. I have read and agree with this documentation. Enid Wynne MA, CCC-VP HR DIVERSITY 10/19/23 * Cathy Carlton RCP - 10/19/2023 [...] 99 99 99 - - - - [id number] 34.5* 33.4* 31.4* 31.4* - - - [...] replaced due to continued urinary retention. 10/16: HIGH ENERGY FORMING EQUIPMENT OPERATOR called overnight due to AMS. 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 [...] Psoriasis S/P PICC central line placement 02/13/2019 [facility] VAT R basilic Seizures (HCC) Squamous cell [...] stated his name. Speech was dysarthric. Oral [facility] exam limited d/t decreased command following. Observed [...] Thank you for this referral. LISSA Argueta [facility]-VP HR DIVERSITY 10/18/2023 9:55 AM [id number] * Yanira Macias [...] and red peppers Scopace [Scopolamine] Other and SHORT RANGE AIR DEFENSE ARTILLERY Dysfunction delirium Tobramycin Eye Itching red around [...] No Stress: No Stress Concern Present (10/14/2023) [place] [employer] - Occupational Stress Questionnaire [...] bacteremia 3. History of PAF on Eliquis REGISTER OF WILLS 4. RADHA on CKD 5. History of [...] of patient's performance/location end of session. No, Roofing Contractor, present to assist throughout the session. Please [...] 99 99 99 - - - - [id number] 34.5* 33.4* 31.4* 31.4* - - - [...] relevant data, and documentation. * Jody Miranda, PC ANALYST-MAINTENANCE AND UTILITIES SUPERVISOR - 10/18/2023 7:32 AM CDT SURGERY PROGRESS [...] PM CDT Patient seen and examined with TEMPORARY STAFF ACCOUNTANT. Chart, labs, and imaging reviewed by me. Please see TEMPORARY STAFF ACCOUNTANT note for further details. I was present for the glaser portions of any procedures performed and always available. I confirm history, exam, assessment and plan with the following exceptions/additions: Left lower extremity cellulitis Still no concerns for necrotizing fasciitis No surgical intervention required Care per primary medical team Will see lucio Jamison DO 10/18/2023 1:22 PM General Surgeon, Surgical [facility] Office: [phone] [facility] Office: [phone] Exchange: [phone] * Aviva Vega RCP - 10/18/2023 1:10 [...] rapid response. Plan discussed with - nursing, hand shoe cutter, hospitalist, and patient. Everyone is in agreement [...] Weight Method : Bed scale (10/14/23 0643) [place] Body Weight IBW/lb (Calculated) Male: 171.904 BMI: [...] Pain affecting intake: No Estimated Needs: KCAL: 2225-1048 based on 11-14 kcal/kg actual wt Protein [...] at a later date. 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 10/16: HIGH ENERGY FORMING EQUIPMENT OPERATOR called overnight due to AMS. Given narcan, [...] Note Anticipated level of care at discharge: Shelter - Skilled Facility, Home Health Care Comment: see progress sect for all snf referrals made: Anticipated level of care provider: None: Anticipated Discharge Date: 10/20/23: Discharge Plan: patient remains in ICU/Stepdown. IV ABX, IV Lasix, now on Narcan drip, has requested [facility] at [place], [place]. Patient here from [place] Orientation Level: Unable to Obtain: Family Support (Name and Phone): Extended Emergency Contact Information Primary Emergency Contact: Trinity Keys Address: [address] [place] [address] [place] [address] [facility] [place] Relation: Spouse Fighting Vehicle Infantryman needed? No Transportation at Discharge: Ambulance: READMISSION [...] in the ICU. Level of Care (SNF/Medicaid NH/Rehab/Watch And Clock Maker And Repairer Care/LTACH): snf requested should pt be unable to rtn hme once stable for discharge. This worker spke with pts. spouse Trinity Keys @ [phone], last week,,and below [facility]/ [facility]/ [facility] per spouse requestedif new snf needed @ time of discharge. Fac has an [employer] contract.Fac willing to review for possible admit. Ss updated fac pt is not yet stable for discharge currently remains in the ICU. MD's following for medical stability. Ss will continue to send updates for fac review. Rtn call rcd from Moni with [facility]/ [facility] admissions, ss explained pt is NOT yet [...] Selected Services Address Phone Fax Patient Preferred [facility] Pending - Request Sent N/A [id number] [facility] [address] [place] [phone] -- If Medicare-3 day qualifying stay verified: pt has Aetna and will need an Auth to transfer to any snf. [facility] to obtain snf Auth if to snf once fac with approval with an available bed. See cm note for all Auth updates if pt to snf @ time of discharge. monitoring facility responses Comments/changes:if to snf nrsg to please send fac orders,chart and discharge summary. Name: CHRIS Garcia Phone: [phone] * Wendy Arteaga, PT - 10/17/2023 8:00 AM CDT Pt chart reviewed. Spoke with RN Eula this AM. Per discussion with RN, request to hold PT at this time as pt is not appropriate for PT. Will hold and follow with PT at a later time/date, as appropriate. 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 Monitor LFTs Patient's Functional Baseline prior to [...] results for input(s): CEA in the last 60778 hours. No results found for this or [...] a 72 year old male, transferred to [facility] for sepsis of unknown origin. [...] Psoriasis S/P PICC central line placement 02/13/2019 [facility] VAT R basilic Seizures (HCC) Squamous cell [...] you for this referral. Philippe Garcia M.S. CCC-VP HR DIVERSITY, CBIS 10/16/2023 10:15 AM [id number] * Thaddeus [...] results for input(s): CEA in the last 57774 hours. 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 Here from home where he was living with his . has requested [facility] in [place], [place]. SW following to assist with discharge. Orientation Level: Oriented to Person;Oriented to Place;Oriented to Time: Family Support (Name and Phone): Extended Emergency Contact Information Primary Emergency Contact: Trinity Keys Address: [address] [place] [address] [place] [address] [facility] Mobile Relation: Spouse Fighting Vehicle Infantryman needed? No Transportation at Discharge: Ambulance vs [...] Equipment at Home: Commode-Bedside;Walker-2 Wheeled;Walker-4 Wheeled with Seat;Wheelchair-Standard;Escrow Clerk;Dressing Stick;Sock Aid Mobility: Ambulate-In Home ;With Assistive [...] Equipment at Home: Commode-Bedside;Walker-2 Wheeled;Walker-4 Wheeled with Seat;Wheelchair-Standard;Escrow Clerk;Dressing Stick;Sock Aid Mobility: Ambulate-In Home ;With Assistive [...] and intact pre and post visit. No, Roofing Contractor, present to assist throughout the session. 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 Given hemodynamic stability and resistance will stop clinda today. Okay to stop vanc as well. Aneta Campbell DO For quickest response please use [facility] Office: [phone] * Jody Miranda, PC ANALYST-MAINTENANCE AND UTILITIES SUPERVISOR - 10/14/2023 8:06 AM CDT SURGERY PROGRESS [...] No plans for surgical intervention Jody Miranda, PC ANALYST-MAINTENANCE AND UTILITIES SUPERVISOR Ascom 2567 Associated attestation - Chris Pena DO - 10/14/2023 8:54 AM CDT Patient seen and examined with TEMPORARY STAFF ACCOUNTANT. Chart, labs, and imaging reviewed by me. Please see TEMPORARY STAFF ACCOUNTANT note for further details. I was present [...] 10/14/2023 8:53 AM General Surgeon, [facility] Office: [phone] [facility] Office: [phone] Exchange: [phone] Continue antibiotics * Radha Malone MSW - 10/14/2023 8:03 AM CDT New Facility Referral Follow-up Tuesday summary note Pt remains in the ICU. Level of Care (SNF/Medicaid NH/Rehab/Watch And Clock Maker And Repairer Care/LTACH): snf requested should pt be unable to rtn hme once stable for discharge. This worker spke with pts. spouse Trinity Keys @ [phone],,and below [facility]/ [facility]/ [facility] per spouse request. [facility] has an Aenta contract.Fac willing to review [...] Phone Fax Patient Preferred [facility] Pending - Request Sent N/A [address], [facility] [address] -- If Medicare-3 day qualifying stay verified: pt has Aetna and will need an Auth to transfer to any snf. [facility] to obtain snf Auth if to snf once fac with approval with an available bed. See cm note for all Auth updates if pt to snf @ time of discharge. monitoring facility responses Comments/changes:if to snf nrsg to please send fac orders,chart and discharge summary. Name: CHRIS Garcia Phone: [phone] * eNetu Llanes MD - 10/14/2023 5:28 AM CDT [...] Llanes MD Critical Care * Zaki Salgado, [facility] - 10/14/2023 4:41 AM CDT Images from [...] again with am labs 10/14 Zaki Salgado [facility] 10/14/2023 4:44 AM Plan for next level: [...] Hypoactive (per nursing documentation) Estimated Needs: KCAL: 6923-1750 based on 11-14 kcal/kg actual wt Protein (g): 94 based on 1.2 g/kg ibw Fluid (ml): 1 ml/kcal Nutrition Issues/Plan: Monitor diet advancement, labs Monitor per nutrition guidelines. ASCOM [phone] * Jody Miranda, PC ANALYST-MAINTENANCE AND UTILITIES SUPERVISOR - 10/13/2023 9:30 AM CDT SURGERY PROGRESS [...] Pain control Nephrology following- RADHA Jody Miranda APRN-MAINTENANCE AND UTILITIES SUPERVISOR Ascom 2561 Associated attestation - Jane Ramirez DO - 10/13/2023 3:26 PM CDT Patient seen and examined with TEMPORARY STAFF ACCOUNTANT. Chart, labs, and imaging reviewed by me. Please see TEMPORARY STAFF ACCOUNTANT note for further details. I was present [...] Reviewed CT of leg Jane Ramirez DO [facility] General Surgeon, [facility] Office: [phone] [facility] Office: [phone] Exchange: [phone] * Halina Barraza MD - 10/13/2023 9:18 [...] and red peppers Scopace [Scopolamine] Other and SHORT RANGE AIR DEFENSE ARTILLERY Dysfunction delirium Tobramycin Eye Itching red around [...] (GAMUNEX-C) 10 % 40 g 0.5 g/kg (Dardanelle) Intravenous Continuous insulin aspart (NovoLOG) pen 0-12 [...] in chains in 2/2 blood cultures from [place], await ID/S Blood cultures here NGTD (drawn [...] / RADHA On no medications to explain (REGISTER OF WILLS KCl and spironolactone have been on hold) [...] SCDs, SQ heparin held for TCP Continue REGISTER OF WILLS PPI Discussed with pt, TEMPORARY STAFF ACCOUNTANT Ruben Barraza M.D. Critical Care Medicine Time in: 9:15 AM Time out: 10:11 AM Total CCM time 56 min * Radha Malone MSW - 10/13/2023 8:30 AM CDT New Facility Referral Follow-up Level of Care (SNF/Medicaid NH/Rehab/Usp Care/LTACH): snf requested should pt be unable to rtn hme once stable for discharge. This worker spke with pts. spouse Trinity Keys @ [phone],yesterday ,and with mess out to below [facility]/ [facility]/ [facility] per spouse request to see if fac [...] Selected Services Address Phone Fax Patient Preferred [facility] Pending - Request Sent N/A [address] [facility] [address] [place] [phone] -- If Medicare-3 day qualifying stay [...] and discharge summary. Name: CHRIS Garcia Phone: [phone] * Aviva Vega RCP - 10/13/2023 8:24 [...] Note Anticipated level of care at discharge: Shelter - Skilled Facility, Home Health Care Comment: see progress sect for all snf referrals made: Anticipated level of care provider: None: Anticipated Discharge Date: 10/17/23: Discharge Plan: Patient remains in ICU now on BiPap. Here from home where he was living with his . No PT/OT evals now. Most likely will need SNF. has requested [facility] to assist with discharge. Orientation Level: Oriented to Person;Oriented to Time;Oriented to Place: Family Support (Name and Phone): Extended Emergency Contact Information Primary Emergency Contact: Trinity Keys Address: [address] [place] [address] [place] [address] [facility] Mobile Relation: Spouse Fighting Vehicle Infantryman needed? 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 Afib, [...] Campbell DO For quickest response please use [facility] Office: [phone] * Zaki Salgado, [facility] - 10/13/2023 4:22 AM CDT Images from [...] failure, unspecified whether with hypoxia or hypercapnia ([facility]) COMPARISON: May 01, 2019ADDITIONAL CLINICAL INFORMATION (if [...] (244 lb 14.9 oz) (10/12/23 0507) Last Dardanelle Body Weight IBW/lb (Calculated) Male: 171.904 BMI: [...] Pain affecting intake: No Estimated Needs: KCAL: 7051-6102 based on 11-14 kcal/kg actual wt Protein [...] Family Anticipated level of care at discharge: Shelter - Skilled Facility, Home Health Care Anticipated [...] to patient's . She tells me that REGISTER OF WILLS patient was living at home with . assists withbathing, patient can dress self, uses a walker but most recently was using a wheelchair r/t increased SOB. Patient has Home O2 and uses with BiPap at Night, most recently was using O2 during the day.Had been going to the [facility] to use their recumbent bike when became really SOB and he told he couldn't do that anymore. Patient has been to [facility] in [place], [place]. If SNF is needed at time of discharge that is her choice. SW consulted to follow. Lives with: Spouse Physical Limitations: Requires Assistance With: Hygiene;Housekeeping;Meal Preparation;Medication Administration;Shopping Preferred Pharmacy: [id number] [address] [facility] [address] [address] [facility] [address] READMISSION RISK SCORE is 13 at 11:35 AM 10/12/2023. Met with patient and spouse Family Support (name and phone): Extended Emergency Contact Information Primary Emergency Contact: Trinity Keys Address: [address] [place] [address] [facility] Mobile Relation: Spouse Fighting Vehicle Infantryman needed? No Patient or commissary representative requests care coordination reach out to family or caregiver listed above regarding discharge planning and at time of discharge? Yes Patient/Family provided with list of resources? Yes Preferred Provider / High Quality Network List given?: Unknown Reason for provider choice: Pt. choice - Pt. choice Equipment at Home: Commode-Bedside;Walker-2 Wheeled;Walker-4 Wheeled with Seat;Wheelchair-Standard;Escrow Clerk;Dressing Stick;Sock Aid Credit Department Manager Referral: Yes Will continue to follow. For any questions or needs please contact: Renewable Energy Division Manager Name/Phone number: Makayla Echavarria RN * Cathy [...] the left inner thigh. * Farooq Kathleen [facility] - 10/12/2023 6:04 AM CDT Images from the original note were not included. Pharmacy Monitoring ACTIVE CONSULTS TO PHARMACY/DISEASE STATE MONITORING Pharmacy Consult: Vancomycin Management VANCOMYCIN MONITORING Indication: Cellulitis/ulceration non-diabetic with Goal Level: 15-20 mcg/ml, Sepsis with Goal Level: 15-20 mcg/ml Vancomycin Administrations from [facility] (last 72 hours) None Recent Labs Component [...] Dose =1500 mg (Received 1 gm at [facility] on 10/10 @ 2024). Maintenance Dose = [...] Psoriasis S/P PICC central line placement 02/13/2019 [facility] VAT R basilic Seizures (HCC) Squamous cell [...] and red peppers Scopace [Scopolamine] Other and SHORT RANGE AIR DEFENSE ARTILLERY Dysfunction delirium Tobramycin Eye Itching red around [...] (one) tablet by mouth once daily nystatin 711668 UNIT/GM cream - BACITRACIN ointment 50:50 CREA [...] area of the Body, eyes Spacer/Aero-Holding Chambers ([facility]) MISC as directed spironolactone (Aldactone) [...] 2. Shock -continue pressor support -consult to hand shoe cutter 3. Respiratory failure with hypoxia Acute respiratory [...] this patient. Time spent includes time spent [id number] with the patient discussing the patient with the outside ED provider, discussing with the hand shoe cutter, discussing with nursing staff, ordering tests and [...] - 10/20/2023 7:17 PM CDTAssociated Order(s): EEG [facility] Electroencephalogram Report PATIENT NAME: JOSÉ MIGUEL KEYS MR#: [id number] ROOM#: [id number] CSN: [id number] ADMISSION DATE: 10/12/2023 SEX: M : 1950 [...] suggested. DICTATOR: YANIRA MACIAS M.D. MP/MODL #: [id number] cc: Yanira Macias M.D. documented in this encounter Consult Notes * Radha Malone BLANKET WINDER HELPER - 10/27/2023 8:11 AM CDTAssociated Order(s): IP CONSULT TO GOLF PLAYER ASSISTANT Ss acknowledging consult rcd today 10/25 in, in luz. SS already actively working with pts spouse re: Lizabeth Tan facilites. Referrals already made/ others to be made. Spouse already has sscontact info for any questions/concerns. New Facility Referral Follow-up Level of Care (SNF/Medicaid NH/Rehab/Watch And Clock Maker And Repairer Care/LTACH): snf referrals made. Ss awaiting assessments/ rtn calls. Other referrals to be made if below unable to accommodate. Referrals initiated: Continued Care and Services - Admitted Since 10/12/2023 Destination Service Provider Request Status Selected Services Address Phone Fax Patient Preferred [address] [facility] Pending - Request Sent N/A [address] [address] [phone] -- [facility] Pending - Request Sent N/A LIZABETH ODONNELL [address] -- If Medicare-3 day qualifying stay verified: pt has Aetna and will need an Auth for snf transfer cmHolly to obtain snf Auth once fac with approval with an available bed. monitoring facility responses Comments/changes:@ discharge nrsg to please send fac orders,chart and discharge summary. Below referrals made per spouse request. Ss discussed with spouse Trinity Keys @ [phone], [place] Aetna facilities (rcd list near pts hme from ss f/u with deboning team leader). Per cm team ? Sat/?Sund discharge when medically stable and Auth rcd. MD's following for medical stability and to advise when stable for discharge. Pt will be unable to transfer until Auth rcd and fac with approval with an available bed, and pt medically stable for transfer. Ss updated spouse pt was denied @ [facility]. Spouse has ss contact # and planned to look up reviews for other options and advise if with any changes in choices. SS spke with Nicolas with [facility] admissions she will advise ss if able to accommodate. Nicolas asked for ss contact # / provided. Ss awaiting rtn call. Continued Care and Services - Admitted Since 10/12/2023 Destination Service Provider Request Status Selected Services Address Phone Fax Patient Preferred [facility] Pending - Request Sent N/A LIZABETH ODONNELL [address] -- [place] [facility])Pending - Request Sent N/A [address] [facility] [phone] -- Current Capacity last updated by Chantel Lepe on 04/28/2022 1237 [address] [facility] Pending - Request Sent N/A [address] [facility] [address] -- [facility] Declined Facility cannot provide for patient's needs, per admissions unable to accommodate. N/A [address], [facility] [phone] -- Name: CHRIS Garcia Phone: [phone] * Aneta Whittington MD - 10/25/2023 10:58 [...] Psoriasis S/P PICC central line placement 02/13/2019 [facility] VAT R basilic Seizures (HCC) Squamous cell [...] and red peppers Scopace [Scopolamine] Other and SHORT RANGE AIR DEFENSE ARTILLERY Dysfunction delirium Tobramycin Eye Itching red around [...] Readmission Risk Score: If there is no COAL HAULER Total Score indicated, this patient has yet [...] and red peppers Scopace [Scopolamine] Other and SHORT RANGE AIR DEFENSE ARTILLERY Dysfunction delirium Tobramycin Eye Itching red around [...] No Stress: No Stress Concern Present (10/14/2023) [place] [employer] - Occupational Stress Questionnaire [...] bacteremia 3. History of PAF on Eliquis REGISTER OF WILLS 4. RADHA on CKD 5. History of [...] bacteremia 3. History of PAF on Eliquis REGISTER OF WILLS 4. RADHA on CKD 5. History of [...] Pulmonary Consult Note José Miguel Keys 1950 [id number] White/ No chief complaint on file. Requested [...] No Stress: No Stress Concern Present (10/14/2023) [place] [employer] - Occupational Stress Questionnaire [...] and red peppers Scopace [Scopolamine] Other and SHORT RANGE AIR DEFENSE ARTILLERY Dysfunction delirium Tobramycin Eye Itching red around [...] results for input(s): TROPONIN in the last 49462 hours. INR Recent Labs Component Name 10/12/23 0503 03/08/23 1349 08/10/22 1259 INR 1.2* 1.0 1.1 LACTIC ACID Recent Labs Component Name 10/12/23 1136 10/12/23 0503 02/03/19 0413 LACTICACID 2.1* 2.6* 0.7 Recent Labs Component Name 10/17/23 0811 10/17/23 0420 10/17/23 0200 [id number] 31.4* 31.4* 31.0* FIO2 40.0 40.0 40.0 [...] JOSÉ MIGUEL KEYS : 1950 MR # [id number] Reason for consult: Kidney injury Requesting: Aaron [...] MCG/ACT nasal spray 10/11/2023 Yes Yes Sig: Warren 1 (one) spray into each nostril once [...] and red peppers Scopace [Scopolamine] Other and SHORT RANGE AIR DEFENSE ARTILLERY Dysfunction delirium Tobramycin Eye Itching red around [...] 1.7 No results for input(s): PTHINTACT , [id number] in the last 34652 hours. Recent Labs Component Name 04/23/17 1103 [id number] 11* Recent Labs Component Name 10/13/23 0346 [...] 1:55 PM CDTAssociated Order(s): IP CONSULT TO GOLF PLAYER ASSISTANT Ss acknowledging consult rcd today 10/11 in, in basket. Additional info to follow. New Facility Referrals Date of referral:rcd new 10/11. Admitted from: hme with spouse Special Needs: Covid guidelines for fac with approval must be met. Patient Goal (short term and joint terminal attack controller): short term TBD snf if needed/ joint terminal attack controller home Level of Care (SNF/Medicaid NH/Rehab/Watch And Clock Maker And Repairer Care/LTACH): see above Spoke with (Phone number, if not patient. Family participation encouraged): ss spke with pts spousept currently in the ICU. Per spouse Trinity Keys @ [phone], if pt in need of snf @ time of discharge she is interested in a possible referral to below fac. [facility] in [facility]. Ss with a call out to fac to try to f/u with admissions to see if fac with a contract with pts insurance Aetna. Ss awaiting rtn call .Mess to [facility] receptionistfor [facility] admissions Healther List of facilities provided (patient [...] Selected Services Address Phone Fax Patient Preferred [facility] Pending - No Request Sent N/A [address] [facility] [id number] -- Prior Auth required? Yes/no: yes if to snf would need Auth once fac with approval with an availablebed. [facility] cm to obtain snf Auth if [...] medical optimization for sepsis as transfer from [facility]. Went to [place] with one week shortness of breath and [...] Psoriasis S/P PICC central line placement 02/13/2019 [facility] VAT R basilic Seizures (HCC) Squamous cell [...] and red peppers Scopace [Scopolamine] Other and SHORT RANGE AIR DEFENSE ARTILLERY Dysfunction delirium Tobramycin Eye Itching red around [...] results for input(s): CK in the last 13929 hours. 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 3685-4452, on chronic suppressive doxycycline 100mg BID Afib, [...] cholecystitis -Check CK and CRP Discussed with hand shoe cutter, Dr Barraza Addendum: -Discussed with surgery,Dr Jamison, [...] Campbell DO For quickest response please use [facility] Office: [phone] * Jody Miranda, PC ANALYST-MAINTENANCE AND UTILITIES SUPERVISOR - 10/12/2023 8:32 AM CDTAssociated Order(s): IP [...] so pressors were started, pt transferred to [facility] for further care No CT [...] Psoriasis S/P PICC central line placement 02/13/2019 [facility] VAT R basilic Seizures (HCC) Squamous cell [...] fluticasone propionate (Flonase) 50 MCG/ACT nasal spray Warren 1 (one) spray into each nostril once [...] affected area 2 times daily nystatin (Mycostatin) 524721 UNIT/GM powder Apply to affected area 4 [...] and red peppers Scopace [Scopolamine] Other and SHORT RANGE AIR DEFENSE ARTILLERY Dysfunction delirium Tobramycin Eye Itching red around [...] surgical intervention Will follow closely Jody Miranda APRN-MAINTENANCE AND UTILITIES SUPERVISOR Cc Provider Unknown Associated attestation - Jorge Jamison DO - 10/13/2023 11:40 AM CDT Patient seen and examined with TEMPORARY STAFF ACCOUNTANT. Chart, labs, and imaging reviewed by me. Please see TEMPORARY STAFF ACCOUNTANT note for further details. I was present [...] 10/13/2023 11:39 AM General Surgeon, Surgical [facility] Office: [phone] [facility] Office: [phone] Exchange: [phone] * Nas Mcnally MD - 10/12/2023 4:26 [...] and red peppers Scopace [Scopolamine] Other and SHORT RANGE AIR DEFENSE ARTILLERY Dysfunction delirium Tobramycin Eye Itching red around [...] (one) tablet by mouth once daily nystatin 562022 UNIT/GM cream - BACITRACIN ointment 50:50 CREA [...] area of the Body, eyes Spacer/Aero-Holding Chambers ([facility]) MISC as directed spironolactone (Aldactone) [...] RAPID DATE:10/16/23 RAPID TIME: 2216 RAPID LOCATION: [facility] ADMITTING SERVICE: Omi Fortune [facility]* PERSON(S) NOTIFIED: Family, care team, Dr. Hook, RT PRIMARY REASON FOR CALL: Respirations Acute mental status change OUTCOME: Transitional Care / Stepdown Unit SUMMARY OF RAPID EVENTS: HIGH ENERGY FORMING EQUIPMENT OPERATOR called for change in mentation as well [...] st Contact Info) Description 07/09/2024 12:30 PM ORE ROASTER Office Visit [facility] - GI [address] [place] [address], [place] [address] Twin Miller MD [address] [place] [address] [place] [address] 09/19/2024 2:00 PM CDT Office Visit [facility] - Orthopedic Surgery [address] [place] [address] Larry Alexander MD [address] [facility] [address] [place] [address] Scheduled Orders Name Type Priority Associated Diagnoses [...] OF CARE (11/03/2023 12:08 PM CDT) Pathologist [facility] Glucose WB/POC 96 70 - 106 mg/dL 11/03/2023 12:18 PM CDT [facility] Specimen Type Cap Fingerstick 2023 12:18 PM CDT [facility] Blood BLOOD SPECIMEN / Unknown 11/03/2023 12:08 PM CDT 11/03/2023 12:18 PM CDT Ariel Martinez MD LAB - POINT OF CARE ORDERABLES [facility] [address] [place] [address] * SARS-COV-2 (COVID-19) RAPID (11/03/2023 10:51 AM CDT) Pathologist [facility] COVID-19 PCR Not detected Not detected 11/03/19 11:27 AM CDT [facility] Microbiology SPECIMEN FROM NASOPHARYNGEAL STRUCTURE / Unknown Collection / Unknown 11/03/2023 10:51 AM CDT 11/03/2023 10:54 AM CDT Narrative [facility] - 11/03/2023 11:27 AM CDT The CepPercuVision Xpert Xpress SARS-COV-2 has been authorized by [...] - MICROBIOLOGY O RDERABLES Performing Organization Address City/[facility]/ZIP Co de Phone Number [facility] [address] [place] [phone] * (ABNORMAL) GLUCOSE - POINT OF CARE (11/03/2023 8:13 AM CDT) Pathologist [facility] Glucose WB/POC 107(H) 70 - 106 mg/dL 11/03/2023 8:23 AM CDT [facility] Specimen Type Cap Fingerstick 2023 8:23 AM CDT [facility] Blood BLOOD SPECIMEN / Unknown 11/03/2023 8:13 AM CDT 11/03/2023 8:23 AM CDT Ariel Martinez MD LAB - POINT OF CARE ORDERABLES Performing Organization Address [facility]/ZIP Co de Phone Number [facility] [address] [place] [address] * (ABNORMAL) CBC W AUTO DIFFERENTIAL (11/03/2023 4:17 AM CDT) Pathologist [facility] WBC 5.9 4.0 - 10.7 x10E9/L 11/03/2023 4:53 AM CDT [facility] RBC Count 3.55(L) 4.30 - 5.80 x10E12/L 11/03/2023 4:53 AM [facility] Hemoglobin 11.1(L) 13.3 - 17.5 g/dL 11/03/2023 4:53 AM [facility] Hematocrit 36.0(L) 38.7 - 51.1 % 11/03/2023 4:53 AM [facility] MCV 101.4(H) 80.0 - 98.0 fL 11/03/2023 4:53 [facility] MCH 31.3 26.7 - 33.6 pg 11/03/2023 4:53 AM [facility] MCHC 30.8(L) 31.7 - 36.3 g/dL 11/03/2023 4:53 AM [facility] RDW-CV 17.4(H) 11.3 - 14.8 % 11/03/2023 4:53 AM [facility] [facility] Platelet Count 186 150 - 420 x10E9/L 11/03/2023 4:53 AM [facility] MPV 13.2(H) 7.8 - 11.4 fL 11/03/2023 4:53 AM [facility] Neutrophil % 62.6 41.0 - 74.0 % 11/03/2023 4:53 AM [facility] Lymphocyte % 15.0(L) 17.0 - 47.0 % 11/03/2023 4:53 AM [facility] Monocyte % 14.0(H) 3.0 - 11.0 % 11/03/2023 4:53 AM [facility] Eosinophil % 6.7 0.0 - 7.0 % 11/03/2023 4:53 AM [facility] Basophil % 0.5 0.0 - 1.6 % 11/03/2023 4:53 AM [facility] Immature Granulocytes % 1.2(H) 0.0 - 1.0 % 11/03/2023 4:53 AM [facility] Neutrophil Absolute 3.67 1.60 - 7.50 x10E9/L 11/03/2023 4:53 AM [facility] Lymphocyte Absolute 0.88(L) 1.00 - 4.40 x10E9/L 11/03/2023 4:53 AM CDT [facility] Monocyte Absolute 0.82 0.15 - 1.00 x10E9/L 11/03/2023 4:53 AM CDT [facility] Eosinophil Absolute 0.39 0.00 - 0.60 x10E9/L 11/03/2023 4:53 AM CDT [facility] Basophil Absolute 0.03 0.00 - 0.13 x10E9/L 11/03/2023 4:53 AM CDT [facility] Blood BLOOD SPECIMEN / Unknown Lab Venipuncture / Unknown 11/03/2023 4:17 AM CDT 11/03/2023 4:39 AM CDT Tamara Bauman MD LAB - HEMATOLOGY ORD ERABLES Performing Organization Address [facility]/ZIP Co de Phone Number [facility] [address] [place] [address] * MAGNESIUM BLOOD (11/03/2023 4:17 AM CDT) Magnesium 2.1 1.6 - 2.6 mg/dL 11/03/2023 5:00 AM CDT [facility] Blood BLOOD SPECIMEN / Unknown Lab Venipuncture / Unknown 11/03/2023 4:17 AM CDT 11/03/2023 4:39 AM CDT Tamara Bauman MD LAB - CHEMISTRY ORDMarj KLINE Performing Organization Address City/[facility]/ZIP Co de Phone Number [facility] [address] [place] [address] * (ABNORMAL) BASIC METABOLIC PANEL (CALCIUM TOTAL) (11/03/2023 4:17 AM CDT) Glucose 92 70 - 105 mg/dL 11/03/2023 5:00 AM CDT [facility] Sodium 138 136 - 145 mmol/L 11/03/2023 5:00 AM CDT [facility] Potassium 4.5 3.5 - 5.1 mmol/L 11/03/2023 5:00 AM CDT [facility] Chloride 107 98 - 107 mmol/L 11/03/2023 5:00 AM [facility] CO2 25 22 - 29 mmol/L 11/03/2023 5:00 AM [facility] Calcium 9.3 8.4 - 10.4 mg/dL 11/03/2023 5:00 AM [facility] Anion Gap 6 6 - 16 mmol/L 11/03/2023 5:00 AM [facility] BUN 25 7 - 26 mg/dL 11/03/2023 5:00 AM [facility] Creatinine 1.59(H) 0.72 - 1.25 mg/dL 11/03/2023 5:00 AM [facility] eGFR by CKD-EPI 45(L) >=90 mL/min/1.7 3 m2 11/03/2023 5:00 AM [facility] Blood BLOOD SPECIMEN / Unknown Lab Venipuncture / Unknown 11/03/2023 4:17 AM CDT 11/03/2023 4:39 AM CDT Ariel Martinez MD LAB - CHEMISTRY ORDE RABLES Performing Organization Address City/[facility]/ZIP Co de Phone Number [facility] [address] [place] [address] * GLUCOSE - POINT OF CARE (11/02/2023 9:18 PM CDT) Glucose WB/POC 94 70 - 106 mg/dL 11/03/2023 7:51 AM CDT [facility] Specimen Type Cap Fingerstick 2023 7:51 AM T [facility] Blood BLOOD SPECIMEN / Unknown 11/02/2023 9:18 PM CDT 11/03/2023 7:51 AM CDT Ariel Martinez MD LAB - POINT OF CARE ORDERABLES [facility] [address] [place] [address] * GLUCOSE - POINT OF CARE (11/02/2023 4:56 PM CDT) Glucose WB/POC 95 70 - 106 mg/dL 11/02/2023 7:42 PM CDT [facility] Specimen Type Arterial 11/02/2023 7:42 PM CDT [facility] Blood BLOOD SPECIMEN / Unknown 11/02/2023 4:56 PM CDT 11/02/2023 7:42 PM CDT Ariel Martinez MD LAB - POINT OF CARE ORDERABLES [facility] [address] [place] [address] * XR CHEST 1VW PORTABLE (11/02/2023 4:37 [...] - 7.45 pH 11/02/2023 4:27 PM CDT [facility] pCO2 Arterial 59(H) 35 - 45 mmHg 11/02/2023 4:27 PM CDT [facility] pO2 Arterial 133(H) 80 - 100 mmHg 11/02/2023 4:27 PM CDT [facility] HCO3 Arterial 26.5(H) 22.0 - 26.0 mmol/L 11/02/2023 4:27 PM CDT [facility] BE Arterial -1.7 -2.0 - 2.0 mmol/L 11/02/2023 4:27 PM CDT [facility] O2 Saturation Arterial 100 90 - 100 % 11/02/2023 4:27 PM CDT [facility] Malik's Test Positive 11/02/2023 4:27 PM CDT [facility] Sample Site Left RA 11/02/2023 4:27 PM CDT [facility] O2 Device Cannula 11/02/2023 4:27 PM CDT [facility] Liter Flow (LPM) 3 11/02/2023 4:27 PM CDT [facility] P/F Ratio 11/02/2023 4:27 PM CDT [facility] Comment:C^Incalculable Blood, arterial ARTERIAL BLOOD SPECIMEN / Unknown 11/02/2023 4:23 PM CDT 11/02/2023 4:23 PM CDT Ariel Martinez MD LAB - BLOOD GASES OR DERABLES [facility] [address] [place] [address], [facility] [phone] * CARDIAC EKG ORDER (11/02/2023 11:29 AM CDT) Narrative 11/02/2023 11:29 AM CDT Ordered by an unspecified provider. Scanned Document CARDIAC SERVICES ORD ERABLES * (ABNORMAL) GLUCOSE - POINT OF CARE (11/02/2023 11:23 AM CDT) [facility] Glucose WB/POC 108(H) 70 - 106 mg/dL 11/02/2023 11:46 AM CDT [facility] Specimen Type Arterial 11/02/2023 11:46 AM CDT [facility] Blood BLOOD SPECIMEN / Unknown 11/02/2023 11:23 AM CDT 11/02/2023 11:46 AM CDT Ariel Martinez MD LAB - POINT OF CARE ORDERABLES [facility] [address] [place] [address] * (ABNORMAL) CBC W AUTO DIFFERENTIAL (11/02/2023 8:10 AM CDT) [facility] WBC 7.7 4.0 - 10.7 x10E9/L 11/02/2023 8:23 AM CDT [facility] RBC Count 3.38(L) 4.30 - 5.80 x10E12/L 11/02/2023 8:23 AM CDT [facility] Hemoglobin 10.6(L) 13.3 - 17.5 g/dL 11/02/2023 8:23 AM CDT [facility] Hematocrit 34.3(L) 38.7 - 51.1 % 11/02/2023 8:23 AM CDT [facility] MCV 101.5(H) 80.0 - 98.0 fL 11/02/2023 8:23 AM CDT [facility] MCH 31.4 26.7 - 33.6 pg 11/02/2023 8:23 AM CDT [facility] MCHC 30.9(L) 31.7 - 36.3 g/dL 11/02/2023 8:23 AM [facility] RDW-CV 17.7(H) 11.3 - 14.8 % 11/02/2023 8:23 AM [facility] Platelet Count 171 150 - 420 x10E9/L 11/02/2023 8:23 AM [facility] MPV 13.2(H) 7.8 - 11.4 fL 11/02/2023 8:23 AM [facility] Neutrophil % 73.2 41.0 - 74.0 % 11/02/2023 8:23 AM [facility] Lymphocyte % 9.7(L) 17.0 - 47.0 % 11/02/2023 8:23 AM [facility] Monocyte % 10.9 3.0 - 11.0 % 11/02/2023 8:23 AM [facility] Eosinophil % 4.9 0.0 - 7.0 % 11/02/2023 8:23 AM [facility] Basophil % 0.4 0.0 - 1.6 % 11/02/2023 8:23 AM [facility] Immature Granulocytes % 0.9 0.0 - 1.0 % 11/02/2023 8:23 AM [facility] Neutrophil Absolute 5.65 1.60 - 7.50 x10E9/L 11/02/2023 8:23 AM [facility] Lymphocyte Absolute 0.75(L) 1.00 - 4.40 x10E9/L 11/02/2023 8:23 AM [facility] Monocyte Absolute 0.84 0.15 - 1.00 x10E9/L 11/02/2023 8:23 AM [facility] Eosinophil Absolute 0.38 0.00 - 0.60 x10E9/L 11/02/2023 8:23 AM [facility] Basophil Absolute 0.03 0.00 - 0.13 x10E9/L 11/02/2023 8:23 AM [facility] Blood BLOOD SPECIMEN / Unknown Lab Venipuncture / Unknown 11/02/2023 8:10 AM CDT 11/02/2023 8:14 AM CDT Tamara Bauman MD LAB - HEMATOLOGY ORD ERABLES Performing Organization Address City/[facility]/ZIP Co de Phone Number [facility] [address] [place] [address] * MAGNESIUM BLOOD (11/02/2023 8:10 AM CDT) Magnesium 1.9 1.6 - 2.6 mg/dL 11/02/2023 8:30 AM T [facility] Blood BLOOD SPECIMEN / Unknown Lab Venipuncture / Unknown 11/02/2023 8:10 AM CDT 11/02/2023 8:14 AM CDT Tamara Bauman MD LAB - CHEMISTRY ORDE RABANGELIA Performing Organization Address [facility]/ZIP Co de Phone Number [facility] [address] [place] [address] * (ABNORMAL) BASIC METABOLIC PANEL (CALCIUM TOTAL) (11/02/2023 8:10 AM CDT) Glucose 94 70 - 105 mg/dL 11/02/2023 8:30 AM [facility] Sodium 139 136 - 145 mmol/L 11/02/2023 8:30 AM [facility] Potassium 4.4 3.5 - 5.1 mmol/L 11/02/2023 8:30 AM [facility] Chloride 108(H) 98 - 107 mmol/L 11/02/2023 8:30 AM [facility] CO2 23 22 - 29 mmol/L 11/02/2023 8:30 AM [facility] Calcium 8.9 8.4 - 10.4 mg/dL 11/02/2023 8:30 AM [facility] Anion Gap 8 6 - 16 mmol/L 11/02/2023 8:30 AM [facility] BUN 22 7 - 26 mg/dL 11/02/2023 8:30 AM [facility] Creatinine 1.44(H) 0.72 - 1.25 mg/dL 11/02/2023 8:30 AM [facility] eGFR by CKD-EPI 51(L) >=90 mL/min/1.7 3 m2 11/02/2023 8:30 AM CDT [facility] Blood BLOOD SPECIMEN / Unknown Lab Venipuncture / Unknown 11/02/2023 8:10 AM CDT 11/02/2023 8:14 AM CDT Ada Angulo PC ANALYST-MAINTENANCE AND [employer]ILITIES SUPERVISOR LAB - CHEMISTRY ORDERABLES Performing Organization Address City/[facility]/ZIP Co de Phone Number [facility] [address] [place] [address] * GLUCOSE - POINT OF CARE (11/02/2023 7:52 AM CDT) Glucose WB/POC 98 70 - 106 mg/dL 11/02/2023 8:32 AM CDT [facility] Specimen Type Arterial 11/02/2023 8:32 AM CDT [facility] Blood BLOOD SPECIMEN / Unknown 11/02/2023 7:52 AM CDT 11/02/2023 8:32 AM CDT Ariel Martinez MD LAB - POINT OF CARE ORDERABLES Performing Organization Address [facility]/ZIP Co de Phone Number [facility] [address] [place] [address] * (ABNORMAL) GLUCOSE - POINT OF CARE (11/01/2023 8:38 PM CDT) Glucose WB/POC 124(H) 70 - 106 mg/dL 11/01/2023 8:48 PM CDT [facility] Specimen Type Cap Fingerstick 2023 8:48 PM CDT [facility] Blood BLOOD SPECIMEN / Unknown 11/01/2023 8:38 PM CDT 11/01/2023 8:48 PM CDT Ariel Martinez MD LAB - POINT OF CARE ORDERABLES [facility] [address] [place] [address] * (ABNORMAL) GLUCOSE - POINT OF CARE (11/01/2023 5:18 PM CDT) Glucose WB/POC 135(H) 70 - 106 mg/dL 11/01/2023 5:34 PM CDT [facility] Specimen Type Arterial 11/01/2023 5:34 PM CDT [facility] Blood BLOOD SPECIMEN / Unknown 11/01/2023 5:18 PM CDT 11/01/2023 5:34 PM CDT Ariel Martinez MD LAB - POINT OF CARE ORDERABLES Performing Organization Address City/[facility]/ZIP Co de Phone Number [facility] [address] [place] [address] * (ABNORMAL) GLUCOSE - POINT OF CARE (11/01/2023 11:39 AM CDT) Glucose WB/POC 126(H) 70 - 106 mg/dL 11/01/2023 1:07 PM CDT [facility] Specimen Type Arterial 11/01/2023 1:07 PM CDT [facility] Blood BLOOD SPECIMEN / Unknown 11/01/2023 11:39 AM CDT 11/01/2023 1:07 PM CDT Ariel Martinez MD LAB - POINT OF CARE ORDERABLES Performing Organization Address [facility] Co de Phone Number [facility] [address] [place] [address] * (ABNORMAL) GLUCOSE - POINT OF CARE (11/01/2023 7:34 AM CDT) Glucose WB/POC 113(H) 70 - 106 mg/dL 11/01/2023 7:44 AM CDT [facility] Specimen Type Arterial 11/01/2023 7:44 AM CDT [facility] Blood BLOOD SPECIMEN / Unknown 11/01/2023 7:34 AM CDT 11/01/2023 7:44 AM CDT Ariel Martinez MD LAB - POINT OF CARE ORDERABLES Performing Organization Address City/[facility]/ZIP Co de Phone Number [facility] [address] [place] [address] * (ABNORMAL) CBC W AUTO DIFFERENTIAL (11/01/2023 5:02 AM CDT) WBC 9.4 4.0 - 10.7 x10E9/L 11/01/2023 5:13 AM CDT [facility] RBC Count 3.45(L) 4.30 - 5.80 x10E12/L 11/01/2023 5:13 AM CDT [facility] Hemoglobin 10.9(L) 13.3 - 17.5 g/dL 11/01/2023 5:13 AM CDT [facility] Hematocrit 35.5(L) 38.7 - 51.1 % 11/01/2023 5:13 AM CDT [facility] MCV 102.9(H) 80.0 - 98.0 fL 11/01/2023 5:13 AM CDT [facility] MCH 31.6 26.7 - 33.6 pg 11/01/2023 5:13 AM CDT [facility] MCHC 30.7(L) 31.7 - 36.3 g/dL 11/01/2023 5:13 AM CDT [facility] RDW-CV 17.6(H) 11.3 - 14.8 % 11/01/2023 5:13 AM CDT [facility] Platelet Count 202 150 - 420 x10E9/L 11/01/2023 5:13 AM CDT [facility] MPV 13.2(H) 7.8 - 11.4 fL 11/01/2023 5:13 AM CDT [facility] Neutrophil % 75.0(H) 41.0 - 74.0 % 11/01/2023 5:13 AM CDT [facility] Lymphocyte % 9.8(L) 17.0 - 47.0 % 11/01/2023 5:13 AM CDT [facility] Monocyte % 10.3 3.0 - 11.0 % 11/01/2023 5:13 AM CDT [facility] Eosinophil % 3.5 0.0 - 7.0 % 11/01/2023 5:13 AM CDT [facility] Basophil % 0.5 0.0 - 1.6 % 11/01/2023 5:13 AM CDT [facility] Immature Granulocytes % 0.9 0.0 - 1.0 % 11/01/2023 5:13 AM CDT [facility] Neutrophil Absolute 7.05 1.60 - 7.50 x10E9/L 11/01/2023 5:13 AM CDT [facility] Lymphocyte Absolute 0.92(L) 1.00 - 4.40 x10E9/L 11/01/2023 5:13 AM CDT [facility] Monocyte Absolute 0.97 0.15 - 1.00 x10E9/L 11/01/2023 5:13 AM CDT [facility] Eosinophil Absolute 0.33 0.00 - 0.60 x10E9/L 11/01/2023 5:13 AM CDT [facility] Basophil Absolute 0.05 0.00 - 0.13 x10E9/L 11/01/2023 5:13 AM CDT [facility] Blood BLOOD SPECIMEN / Unknown Lab Venipuncture / Unknown 11/01/2023 5:02 AM CDT 11/01/2023 5:05 AM CDT Tamara Bauman MD LAB - HEMATOLOGY ORD ERABLES [facility] [address] [place] [address] * MAGNESIUM BLOOD (11/01/2023 5:02 AM CDT) Pathologist [facility] Magnesium 1.8 1.6 - 2.6 mg/dL 11/01/2023 5:26 AM CDT [facility] Blood BLOOD SPECIMEN / Unknown Lab Venipuncture / Unknown 11/01/2023 5:02 AM CDT 11/01/2023 5:05 AM CDT Tamara Bauman MD LAB - CHEMISTRY ORDE RAISA [facility] [address] [place] [address] * (ABNORMAL) B-TYPE NATRIURETIC PEPTIDE (11/01/2023 5:02 AM CDT) BNP 673(H) <=100 pg/mL 11/01/2023 5:30 AM CDT [facility] Blood BLOOD SPECIMEN / Unknown Lab Venipuncture / Unknown 11/01/2023 5:02 AM CDT 11/01/2023 5:05 AM CDT Tiffany Fortune MD LAB - CHEMISTRY ROYCE KLINE Performing Organization Address City/[facility]/ZIP Co de Phone Number [facility] [address] [place] [address] * (ABNORMAL) LIPID PROFILE (11/01/2023 5:02 AM CDT) Cholesterol 100 <200 mg/dL 11/01/2023 5:26 AM CDT [facility] Triglycerides 74 <150 mg/dL 11/01/2023 5:26 AM [facility] HDL Cholesterol 33(L) >40 mg/dL 4 5:26 AM [facility] LDL Calculated 52 <130 mg/dL 11/01/2023 5:26 AM [facility] VLDL Calculated 15 <=30 mg/dL 4 5:26 AM [facility] Chol HDL Ratio 3.0 <4.5 11/01/2023 5:26 AM [facility] LDL/HDL Ratio 1.6 <5.0 11/01/2023 5:26 AM T [facility] Blood BLOOD SPECIMEN / Unknown Lab Venipuncture / Unknown 11/01/2023 5:02 AM CDT 11/01/2023 5:05 AM CDT Mary Cote MD LAB - CHEMISTRY ROYCE KLINE [facility] [address] [place] [address] * (ABNORMAL) GLUCOSE - POINT OF CARE (10/31/2023 8:19 PM CDT) Glucose WB/POC 112(H) 70 - 106 mg/dL 10/31/2023 8:26 PM CDT [facility] Specimen Type Arterial 10/31/2023 8:26 PM CDT [facility] Blood BLOOD SPECIMEN / Unknown 10/31/2023 8:19 PM CDT 10/31/2023 8:26 PM CDT Dipak Padilla MD LAB - POINT OF CARE ORDERABLES [facility] [address] [place] [address] * (ABNORMAL) GLUCOSE - POINT OF CARE (10/31/2023 5:28 PM CDT) Glucose WB/POC 112(H) 70 - 106 mg/dL 10/31/2023 6:03 PM CDT [facility] Specimen Type Arterial 10/31/2023 6:03 PM CDT [facility] Blood BLOOD SPECIMEN / Unknown 10/31/2023 5:28 PM CDT 10/31/2023 6:03 PM CDT Dipak Padilla MD LAB - POINT OF CARE ORDERABLES Performing Organization Address City/[facility]/ZIP Co de Phone Number [facility] [address] [place] [address] * GLUCOSE - POINT OF CARE (10/31/2023 12:01 PM CDT) Glucose WB/POC 104 70 - 106 mg/dL 10/31/2023 12:15 PM CDT [facility] Specimen Type Arterial 10/31/2023 12:15 PM CDT [facility] Blood BLOOD SPECIMEN / Unknown 10/31/2023 12:01 PM CDT 10/31/2023 12:15 PM CDT Dipka Padilla MD LAB - POINT OF CARE ORDERABLES [facility] [address] [place] [address] * GLUCOSE - POINT OF CARE (10/31/2023 8:38 AM CDT) Glucose WB/POC 93 70 - 106 mg/dL 10/31/2023 8:44 AM CDT [facility] Specimen Type Arterial 10/31/2023 8:44 AM CDT [facility] Blood BLOOD SPECIMEN / Unknown 10/31/2023 8:38 AM CDT 10/31/2023 8:44 AM CDT Dipak Padilla MD LAB - POINT OF CARE ORDERABLES [facility] [address] [place] [address] * XR CHEST 1VW PORTABLE (10/31/2023 5:29 [...] W AUTO DIFFERENTIAL (10/31/2023 4:31 AM CDT) [facility] WBC 9.0 4.0 - 10.7 x10E9/L 10/31/2023 4:57 AM CDT [facility] RBC Count 3.35(L) 4.30 - 5.80 x10E12/L 10/31/2023 4:57 [facility] Hemoglobin 10.5(L) 13.3 - 17.5 g/dL 10/31/2023 4:57 AM CDT [facility] Hematocrit 32.9(L) 38.7 - 51.1 % 10/31/2023 4:57 [facility] MCV 98.2(H) 80.0 - 98.0 fL 10/31/2023 4:57 AM CDT [facility] MCH 31.3 26.7 - 33.6 pg 10/31/2023 4:57 AM CDT [facility] MCHC 31.9 31.7 - 36.3 g/dL 10/31/2023 4:57 [facility] RDW-CV 17.2(H) 11.3 - 14.8 % 10/31/2023 4:57 AM [facility] Platelet Count 219 150 - 420 x10E9/L 10/31/2023 4:57 AM CDT [facility] MPV 13.6(H) 7.8 - 11.4 fL 10/31/2023 4:57 AM [facility] Neutrophil % 74.0 41.0 - 74.0 % 10/31/2023 4:57 AM CDT [facility] Lymphocyte % 9.6(L) 17.0 - 47.0 % 10/31/2023 4:57 AM CDT [facility] Monocyte % 11.0 3.0 - 11.0 % 10/31/2023 4:57 AM CDT [facility] Eosinophil % 3.7 0.0 - 7.0 % 10/31/2023 4:57 AM CDT [facility] Basophil % 0.8 0.0 - 1.6 % 10/31/2023 4:57 AM CDT [facility] Immature Granulocytes % 0.9 0.0 - 1.0 % 10/31/2023 4:57 AM CDT [facility] Neutrophil Absolute 6.63 1.60 - 7.50 x10E9/L 10/31/2023 4:57 AM CDT [facility] Lymphocyte Absolute 0.86(L) 1.00 - 4.40 x10E9/L 10/31/2023 4:57 AM CDT [facility] Monocyte Absolute 0.99 0.15 - 1.00 x10E9/L 10/31/2023 4:57 AM CDT [facility] Eosinophil Absolute 0.33 0.00 - 0.60 x10E9/L 10/31/2023 4:57 AM CDT [facility] Basophil Absolute 0.07 0.00 - 0.13 x10E9/L 10/31/2023 4:57 AM CDT [facility] Blood BLOOD SPECIMEN / Unknown Lab Venipuncture / Unknown 10/31/2023 4:31 AM CDT 10/31/2023 4:42 AM CDT Tamara Bauman MD LAB - HEMATOLOGY ORD ERABLES [facility] [address] [place] [address] * MAGNESIUM BLOOD (10/31/2023 4:31 AM CDT) [facility] Magnesium 1.8 1.6 - 2.6 mg/dL 10/31/2023 5:29 AM CDT [facility] Blood BLOOD SPECIMEN / Unknown Lab Venipuncture / Unknown 10/31/2023 4:31 AM CDT 10/31/2023 4:42 AM CDT Tamara Bauman MD LAB - CHEMISTRY ROYCE KLINE Performing Organization Address City/[facility]/ZIP Co de Phone Number [facility] [address] [place] [address] * (ABNORMAL) GLUCOSE - POINT OF CARE (10/30/2023 7:29 PM CDT) Pathologist [facility] Glucose WB/POC 125(H) 70 - 106 mg/dL 10/30/2023 7:39 PM CDT [facility] Specimen Type Cap Fingerstick 2023 7:39 PM CDT [facility] Blood BLOOD SPECIMEN / Unknown 10/30/2023 7:29 PM CDT 10/30/2023 7:39 PM CDT Dipak Padilla MD LAB - POINT OF CARE ORDERABLES Performing Organization Address City/[facility]/ZIP Co de Phone Number [facility] [address] [place] [address] * (ABNORMAL) GLUCOSE - POINT OF CARE (10/30/2023 6:15 PM CDT) Glucose WB/POC 114(H) 70 - 106 mg/dL 10/30/2023 6:24 PM CDT [facility] Specimen Type Cap Fingerstick 2023 6:24 PM CDT [facility] Blood BLOOD SPECIMEN / Unknown 10/30/2023 6:15 PM CDT 10/30/2023 6:24 PM CDT Dipak Padilla MD LAB - POINT OF CARE ORDERABLES Performing Organization Address [facility]/ZIP Co de Phone Number [facility] [address] [place] [address] * (ABNORMAL) GLUCOSE - POINT OF CARE (10/30/2023 6:06 PM CDT) Glucose WB/POC 135(H) 70 - 106 mg/dL 10/30/2023 6:16 PM CDT [facility] Specimen Type Cap Fingerstick 2023 6:16 PM CDT [facility] Blood BLOOD SPECIMEN / Unknown 10/30/2023 6:06 PM CDT 10/30/2023 6:15 PM CDT Dipak Padilla MD LAB - POINT OF CARE ORDERABLES [facility] [address] [place] [address] * (ABNORMAL) GLUCOSE - POINT OF CARE (10/30/2023 1:02 PM CDT) Glucose WB/POC 129(H) 70 - 106 mg/dL 10/30/2023 1:16 PM CDT [facility] Specimen Type Cap Fingerstick 2023 1:16 PM CDT [facility] Blood BLOOD SPECIMEN / Unknown 10/30/2023 1:02 PM CDT 10/30/2023 1:16 PM CDT Dipak Padilla MD LAB - POINT OF CARE ORDERABLES Performing Organization Address City/[facility]/ZIP Co de Phone Number [facility] [address] [place] [address] * GLUCOSE - POINT OF CARE (10/30/2023 9:09 AM CDT) Glucose WB/POC 96 70 - 106 mg/dL 10/30/2023 9:18 AM CDT [facility] Specimen Type Cap Fingerstick 2023 9:18 AM CDT [facility] Blood BLOOD SPECIMEN / Unknown 10/30/2023 9:09 AM CDT 10/30/2023 9:18 AM CDT Dipak Padilla MD LAB - POINT OF CARE ORDERABLES Performing Organization Address City/[facility]/ZIP Co de Phone Number [facility] [address] [place] [address] * (ABNORMAL) BASIC METABOLIC PANEL (CALCIUM TOTAL) (10/30/2023 4:35 AM CDT) Glucose 97 70 - 105 mg/dL 10/30/2023 9:11 AM CDT [facility] Sodium 133(L) 136 - 145 mmol/L 10/30/2023 9:11 AM CDT [facility] Potassium 4.1 3.5 - 5.1 mmol/L 10/30/2023 9:11 AM CDT [facility] Chloride 107 98 - 107 mmol/L 10/30/2023 9:11 AM CDT [facility] CO2 20(L) 22 - 29 mmol/L 10/30/2023 9:11 AM CDT [facility] Calcium 9.0 8.4 - 10.4 mg/dL 10/30/2023 9:11 AM CDT [facility] Anion Gap 6 6 - 16 mmol/L 10/30/2023 9:11 AM CDT [facility] BUN 22 7 - 26 mg/dL 10/30/2023 9:11 AM CDT [facility] Creatinine 1.06 0.72 - 1.25 mg/dL 10/30/2023 9:11 AM CDT [facility] eGFR by CKD-EPI 74(L) >=90 mL/min/1.7 3 m2 10/30/2023 9:11 AM CDT [facility] Blood BLOOD SPECIMEN / Unknown Lab Venipuncture / Unknown 10/30/2023 4:35 AM CDT 10/30/2023 4:38 AM CDT Ada Angulo PC ANALYST-MAINTENANCE AND UTILITIES SUPERVISOR LAB - CHEMISTRY ORDERABLES [facility] [address] [place] [address] * (ABNORMAL) CBC W AUTO DIFFERENTIAL (10/30/2023 4:35 AM CDT) WBC 8.2 4.0 - 10.7 x10E9/L 10/30/2023 4:[facility] RBC Count 3.30(L) 4.30 - 5.80 x10E12/L 10/30/2023 4:47 AM CDT [facility] Hemoglobin 10.4(L) 13.3 - 17.5 g/dL 10/30/2023 4:47 AM CDT [facility] Hematocrit 32.0(L) 38.7 - 51.1 % 10/30/2023 4:47 AM CDT [facility] MCV 97.0 80.0 - 98.0 fL 10/30/2023 4:47 AM CDT [facility] MCH 31.5 26.7 - 33.6 pg 10/30/2023 4:47 AM CDT [facility] MCHC 32.5 31.7 - 36.3 g/dL 10/30/2023 4:47 AM CDT [facility] RDW-CV 17.4(H) 11.3 - 14.8 % 10/30/2023 4:47 [facility] Platelet Count 228 150 - 420 x10E9/L 10/30/2023 4:47 AM [facility] MPV 13.5(H) 7.8 - 11.4 fL 10/30/2023 4:47 AM [facility] Neutrophil % 73.5 41.0 - 74.0 % 10/30/2023 4:47 AM [facility] Lymphocyte % 11.5(L) 17.0 - 47.0 % 10/30/2023 4:47 AM [facility] Monocyte % 9.9 3.0 - 11.0 % 10/30/2023 4:47 AM [facility] Eosinophil % 3.5 0.0 - 7.0 % 10/30/2023 4:47 AM [facility] Basophil % 0.7 0.0 - 1.6 % 10/30/2023 4:47 AM [facility] Immature Granulocytes % 0.9 0.0 - 1.0 % 10/30/2023 4:47 AM [facility] Neutrophil Absolute 6.03 1.60 - 7.50 x10E9/L 10/30/2023 4:47 AM [facility] Lymphocyte Absolute 0.94(L) 1.00 - 4.40 x10E9/L 10/30/2023 4:47 AM [facility] Monocyte Absolute 0.81 0.15 - 1.00 x10E9/L 10/30/2023 4:47 AM [facility] Eosinophil Absolute 0.29 0.00 - 0.60 x10E9/L 10/30/2023 4:47 AM [facility] Basophil Absolute 0.06 0.00 - 0.13 x10E9/L 10/30/2023 4:47 AM [facility] Blood BLOOD SPECIMEN / Unknown Lab Venipuncture / Unknown 10/30/2023 4:35 AM CDT 10/30/2023 4:38 AM CDT Tamara Bauman MD LAB - HEMATOLOGY ORD ERABLES Performing Organization Address City/[facility]/ZIP Co de Phone Number [facility] [address] [place] [address] * MAGNESIUM BLOOD (10/30/2023 4:35 AM CDT) Magnesium 1.6 1.6 - 2.6 mg/dL 10/30/2023 5:06 AM CDT [facility] Blood BLOOD SPECIMEN / Unknown Lab Venipuncture / Unknown 10/30/2023 4:35 AM CDT 10/30/2023 4:38 AM CDT Tamara Bauman MD LAB - CHEMISTRY ROYCE KLINE Performing Organization Address [facility]/ZIP Co de Phone Number [facility] [address] [place] [address] * (ABNORMAL) GLUCOSE - POINT OF CARE (10/29/2023 7:44 PM CDT) Glucose WB/POC 139(H) 70 - 106 mg/dL 10/29/2023 8:17 PM CDT [facility] Specimen Type Cap Fingerstick 2023 8:17 PM CDT [facility] Blood BLOOD SPECIMEN / Unknown 10/29/2023 7:44 PM CDT 10/29/2023 8:17 PM CDT Dipak Padilla MD LAB - POINT OF CARE ORDERABLES Performing Organization Address [facility]/ZIP Co de Phone Number [facility] [address] [place] [address] * GLUCOSE - POINT OF CARE (10/29/2023 5:53 PM CDT) Glucose WB/POC 104 70 - 106 mg/dL 10/29/2023 6:02 PM CDT [facility] Specimen Type Cap Fingerstick 2023 6:02 PM CDT [facility] Blood BLOOD SPECIMEN / Unknown 10/29/2023 5:53 PM CDT 10/29/2023 6:02 PM CDT Dipak Padilla MD LAB - POINT OF CARE ORDERABLES Performing Organization Address [facility]/ZIP Co de Phone Number [facility] [address] [place] [address] * GLUCOSE - POINT OF CARE (10/29/2023 12:37 PM CDT) Glucose WB/POC 98 70 - 106 mg/dL 10/29/2023 12:47 PM CDT [facility] Specimen Type Cap Fingerstick 2023 12:47 PM CDT [facility] Blood BLOOD SPECIMEN / Unknown 10/29/2023 12:37 PM CDT 10/29/2023 12:47 PM CDT Dipak Padilla MD LAB - POINT OF CARE ORDERABLES Performing Organization Address [facility] de Phone Number [facility] [address] [place] [address] * GLUCOSE - POINT OF CARE (10/29/2023 7:35 AM CDT) Glucose WB/POC 76 70 - 106 mg/dL 10/29/2023 7:44 AM CDT [facility] Specimen Type Cap Fingerstick 2023 7:44 AM CDT [facility] Blood BLOOD SPECIMEN / Unknown 10/29/2023 7:35 AM CDT 10/29/2023 7:44 AM CDT Dipak Padilla MD LAB - POINT OF CARE ORDERABLES Performing Organization Address [facility]/ZIP Co de Phone Number [facility] [address] [place] [address] * (ABNORMAL) CBC W AUTO DIFFERENTIAL (10/29/2023 4:41 AM CDT) WBC 8.1 4.0 - 10.7 x10E9/L 10/29/2023 5:20 AM CDT [facility] RBC Count 3.11(L) 4.30 - 5.80 x10E12/L 10/29/2023 5:20 AM [facility] Hemoglobin 9.8(L) 13.3 - 17.5 g/dL 10/29/2023 5:20 AM [facility] Hematocrit 31.2(L) 38.7 - 51.1 % 10/29/2023 5:20 AM [facility] MCV 100.3(H) 80.0 - 98.0 fL 10/29/2023 5:20 AM [facility] MCH 31.5 26.7 - 33.6 pg 10/29/2023 5:20 AM [facility] MCHC 31.4(L) 31.7 - 36.3 g/dL 10/29/2023 5:20 AM [facility] RDW-CV 17.5(H) 11.3 - 14.8 % 10/29/2023 5:20 AM [facility] Platelet Count 216 150 - 420 x10E9/L 10/29/2023 5:20 AM [facility] MPV 14.1(H) 7.8 - 11.4 fL 10/29/2023 5:20 AM [facility] Neutrophil % 68.2 41.0 - 74.0 % 10/29/2023 5:20 AM [facility] Lymphocyte % 13.9(L) 17.0 - 47.0 % 10/29/2023 5:20 AM [facility] Monocyte % 11.8(H) 3.0 - 11.0 % 10/29/2023 5:20 AM [facility] Eosinophil % 4.3 0.0 - 7.0 % 10/29/2023 5:20 AM [facility] Basophil % 0.7 0.0 - 1.6 % 10/29/2023 5:20 AM [facility] Immature Granulocytes % 1.1(H) 0.0 - 1.0 % 10/29/2023 5:20 AM [facility] Neutrophil Absolute 5.51 1.60 - 7.50 x10E9/L 10/29/2023 5:20 AM [facility] Lymphocyte Absolute 1.12 1.00 - 4.40 x10E9/L 10/29/2023 5:20 AM CDT [facility] Monocyte Absolute 0.95 0.15 - 1.00 x10E9/L 10/29/2023 5:20 AM CDT [facility] Eosinophil Absolute 0.35 0.00 - 0.60 x10E9/L 10/29/2023 5:20 AM CDT [facility] Basophil Absolute 0.06 0.00 - 0.13 x10E9/L 10/29/2023 5:20 AM CDT [facility] Blood BLOOD SPECIMEN / Unknown Lab Venipuncture / Unknown 10/29/2023 4:41 AM CDT 10/29/2023 5:14 AM CDT Tamara Bauman MD LAB - HEMATOLOGY ORD ERABLES [facility] [address] [place] [address] * MAGNESIUM BLOOD (10/29/2023 4:41 AM CDT) Magnesium 1.8 1.6 - 2.6 mg/dL 10/29/2023 5:42 AM CDT [facility] Blood BLOOD SPECIMEN / Unknown Lab Venipuncture / Unknown 10/29/2023 4:41 AM CDT 10/29/2023 5:13 AM CDT Tamara Bauman MD LAB - CHEMISTRY ORDE RABANGELIA [facility] [address] [place] [address] * (ABNORMAL) GLUCOSE - POINT OF CARE (10/28/2023 7:53 PM CDT) Glucose WB/POC 160(H) 70 - 106 mg/dL 10/28/2023 8:50 PM CDT [facility] Specimen Type Cap Fingerstick 2023 8:50 PM CDT [facility] Blood BLOOD SPECIMEN / Unknown 10/28/2023 7:53 PM CDT 10/28/2023 8:50 PM CDT Dipak Padilla MD LAB - POINT OF CARE ORDERABLES Performing Organization Address [facility]/ZIP Co de Phone Number [facility] [address] [place] [address] * (ABNORMAL) GLUCOSE - POINT OF CARE (10/28/2023 4:36 PM CDT) Glucose WB/POC 123(H) 70 - 106 mg/dL 10/28/2023 4:47 PM CDT [facility] Specimen Type Cap Fingerstick 2023 4:47 PM CDT [facility] Blood BLOOD SPECIMEN / Unknown 10/28/2023 4:36 PM CDT 10/28/2023 4:47 PM CDT Dipak Padilla MD LAB - POINT OF CARE ORDERABLES Performing Organization Address [facility] Co de Phone Number [facility] [address] [place] [address] * (ABNORMAL) GLUCOSE - POINT OF CARE (10/28/2023 12:40 PM CDT) Glucose WB/POC 111(H) 70 - 106 mg/dL 10/28/2023 12:49 PM CDT [facility] Specimen Type Arterial 10/28/2023 12:49 PM CDT [facility] Blood BLOOD SPECIMEN / Unknown 10/28/2023 12:40 PM CDT 10/28/2023 12:49 PM CDT Dipak Padilla MD LAB - POINT OF CARE ORDERABLES Performing Organization Address [facility]/ZIP Co de Phone Number [facility] [address] [place] [address] * (ABNORMAL) GLUCOSE - POINT OF CARE (10/28/2023 12:16 PM CDT) Glucose WB/POC 113(H) 70 - 106 mg/dL 10/28/2023 12:28 PM CDT [facility] Specimen Type Cap Fingerstick 2023 12:28 PM CDT [facility] Blood BLOOD SPECIMEN / Unknown 10/28/2023 12:16 PM CDT 10/28/2023 12:28 PM CDT Dipak Padilla MD LAB - POINT OF CARE ORDERABLES Performing Organization Address [facility]/ZIP Co de Phone Number [facility] [address] [place] [address] * GLUCOSE - POINT OF CARE (10/28/2023 7:57 AM CDT) [facility] Glucose WB/POC 101 70 - 106 mg/dL 10/28/2023 8:51 AM CDT [facility] Specimen Type Cap Fingerstick 2023 8:51 AM CDT [facility] Blood BLOOD SPECIMEN / Unknown 10/28/2023 7:57 AM CDT 10/28/2023 8:51 AM CDT Dipak Padilla MD LAB - POINT OF CARE ORDERABLES Performing Organization Address [facility] Co de Phone Number [facility] [address] [place] [address] * (ABNORMAL) CBC W AUTO DIFFERENTIAL (10/28/2023 3:58 AM CDT) [facility] WBC 12.7(H) 4.0 - 10.7 x10E9/L 10/28/2023 5:09 AM CDT [facility] RBC Count 3.22(L) 4.30 - 5.80 x10E12/L 10/28/2023 5:09 AM [facility] Hemoglobin 10.1(L) 13.3 - 17.5 g/dL 10/28/2023 5:09 AM CDT [facility] Hematocrit 31.7(L) 38.7 - 51.1 % 10/28/2023 5:09 AM [facility] MCV 98.4(H) 80.0 - 98.0 fL 10/28/2023 5:09 AM CDT [facility] MCH 31.4 26.7 - 33.6 pg 10/28/2023 5:09 AM CDT [facility] MCHC 31.9 31.7 - 36.3 g/dL 10/28/2023 5:09 AM [facility] RDW-CV 17.4(H) 11.3 - 14.8 % 10/28/2023 5:09 AM [facility] Platelet Count 199 150 - 420 x10E9/L 10/28/2023 5:09 AM [facility] MPV 14.7(H) 7.8 - 11.4 fL 10/28/2023 5:09 AM [facility] Neutrophil % 81.8(H) 41.0 - 74.0 % 10/28/2023 5:09 AM [facility] Lymphocyte % 6.4(L) 17.0 - 47.0 % 10/28/2023 5:09 AM [facility] Monocyte % 10.4 3.0 - 11.0 % 10/28/2023 5:09 AM [facility] Eosinophil % 0.2 0.0 - 7.0 % 10/28/2023 5:09 AM [facility] Basophil % 0.2 0.0 - 1.6 % 10/28/2023 5:09 AM [facility] Immature Granulocytes % 1.0 0.0 - 1.0 % 10/28/2023 5:09 AM [facility] Neutrophil Absolute 10.34(H) 1.60 - 7.50 x10E9/L 10/28/2023 5:09 AM [facility] Lymphocyte Absolute 0.81(L) 1.00 - 4.40 x10E9/L 10/28/2023 5:09 AM [facility] Monocyte Absolute 1.31(H) 0.15 - 1.00 x10E9/L 10/28/2023 5:09 AM [facility] Eosinophil Absolute 0.03 0.00 - 0.60 x10E9/L 10/28/2023 5:09 AM [facility] Basophil Absolute 0.03 0.00 - 0.13 x10E9/L 10/28/2023 5:09 AM [facility] Blood BLOOD SPECIMEN / Unknown Lab Venipuncture / Unknown 10/28/2023 3:58 AM CDT 10/28/2023 4:56 AM CDT Tamara Bauman MD LAB - HEMATOLOGY ORD ERABLES Performing Organization Address [facility]/ZIP Co de Phone Number [facility] [address] [place] [address] * MAGNESIUM BLOOD (10/28/2023 3:58 AM CDT) Magnesium 1.9 1.6 - 2.6 mg/dL 10/28/2023 5:26 AM CDT [facility] Blood BLOOD SPECIMEN / Unknown Lab Venipuncture / Unknown 10/28/2023 3:58 AM CDT 10/28/2023 4:56 AM CDT Tamara Bauman MD LAB - CHEMISTRY ORDE RABLES Performing Organization Address [facility]/ZIP Co de Phone Number [facility] [address] [place] [address] * (ABNORMAL) GLUCOSE - POINT OF CARE (10/27/2023 8:03 PM CDT) Glucose WB/POC 188(H) 70 - 106 mg/dL 10/27/2023 8:13 PM CDT [facility] Specimen Type Cap Fingerstick 2023 8:13 PM CDT [facility] Blood BLOOD SPECIMEN / Unknown 10/27/2023 8:03 PM CDT 10/27/2023 8:13 PM CDT Dipak Padilla MD LAB - POINT OF CARE ORDERABLES Performing Organization Address City/[facility]/ZIP Co de Phone Number [facility] [address] [place] [address] * (ABNORMAL) GLUCOSE - POINT OF CARE (10/27/2023 5:04 PM CDT) Glucose WB/POC 134(H) 70 - 106 mg/dL 10/27/2023 5:14 PM CDT [facility] Specimen Type Cap Fingerstick 2023 5:14 PM CDT [facility] Blood BLOOD SPECIMEN / Unknown 10/27/2023 5:04 PM CDT 10/27/2023 5:14 PM CDT Dipak Padilla MD LAB - POINT OF CARE ORDERABLES [facility] [address] [place] [address] * (ABNORMAL) GLUCOSE - POINT OF CARE (10/27/2023 12:17 PM CDT) [facility] Glucose WB/POC 129(H) 70 - 106 mg/dL 10/27/2023 12:27 PM CDT [facility] Specimen Type Arterial 10/27/2023 12:27 PM CDT [facility] Blood BLOOD SPECIMEN / Unknown 10/27/2023 12:17 PM CDT 10/27/2023 12:27 PM CDT Dipak Padilla MD LAB - POINT OF CARE ORDERABLES [facility] [address] [place] [address] * VAS RIGHT VENOUS DUPLEX UE (10/27/2023 9:33 AM CDT) Anatomical Region Laterality Modality Upper Extremity Intravascular Ul trasound 10/27/2023 9:08 AM CDT Narrative 10/27/2023 9:40 AM CDT ?[facility] ?[address] ?[place], [place] ??[address] ? Upper Extremity Venous Ultrasound Report ? Pat.Name: ??JOSÉ MIGUEL KEYS ? Pat.ID: ?[id number] ? St.Date: ?? 10/27/2023 ? Refer.MD: ??Dipak Padilla ? Exam Time: 9:08:00 AM ?Study Type:UE Venous ?Age: ??1950,72Y ?Sex: ? MALE ? Sonogrphr: MOMO SolanoT ?Pat. Stat.:Inpatient ? Room: ?435 ? CPT - 4: ?17925 ? Reason for Study: Swelling -Arm/hand, right Procedures: ??Upper Extremity Venous - Right Race: ?CAU ? Visit ID: ??[id number] ? ++++++++++++++++++++++++++++++++++++ SUMMARY: ++++++++++++++++++++++++++++++++++++ Acute superficial, occlusive [...] Note Александр Johnston Sr., MD - 11/01/2023 [facility] [address] [place] [address] Upper Extremity Venous Ultrasound Report Pat.Name: JOSÉ MIGUEL KEYS Pat.ID: [id number] .Date: 10/27/2023 Refer.MD: Dipak Padilla Exam Time: 9:08:00 AM Study Type:UE Venous Age: 4 1950,72Y Sex: MALE Sonogrphr: Elisabet Caba RVT Pat. Stat.:Inpatient Room: [facility] CPT - 4: 18480 Reason for Study: Swelling -Arm/hand, right Procedures: Upper Extremity Venous - Right Race: [facility] Visit ID: [id number] ++++++++++++++++++++++++++++++++++++ SUMMARY: ++++++++++++++++++++++++++++++++++++ Acute superficial, occlusive venous [...] - 106 mg/dL 10/27/2023 9:26 AM CDT [facility] Specimen Type Arterial 10/27/2023 9:26 AM CDT [facility] Blood BLOOD SPECIMEN / Unknown 10/27/2023 8:27 AM CDT 10/27/2023 9:26 AM CDT Dipak Padilla MD LAB - POINT OF CARE ORDERABLES [facility] [address] [place] [address] * (ABNORMAL) DIFFERENTIAL MANUAL (10/27/2023 7:37 AM CDT) Neutrophil % 86(H) 41 - 74 % 10/27/2023 8:29 AM CDT [facility] Lymphocyte % 4(L) 17 - 47 % 10/27/2023 8:29 AM CDT [facility] Monocyte % 8 3 - 11 % 10/27/2023 8:29 AM CDT [facility] Eosinophil % 1 0 - 7 % 10/27/2023 8:29 AM CDT [facility] Basophil % 1 0 - 2 % 10/27/2023 8:29 AM CDT [facility] Neutrophil Absolute 12.47(H) 1.60 - 7.50 x10E9/L 10/27/2023 8:29 AM CDT [facility] Lymphocyte Absolute 0.58(L) 1.00 - 4.40 x10E9/L 10/27/2023 8:29 AM CDT [facility] Monocyte Absolute 1.16(H) 0.15 - 1.00 x10E9/L 10/27/2023 8:29 AM CDT [facility] Eosinophil Absolute 0.15 0.00 - 0.60 x10E9/L 10/27/2023 8:29 AM CDT [facility] Basophil Absolute 0.15(H) 0.00 - 0.13 x10E9/L 10/27/2023 8:29 AM CDT [facility] RBC Morphology REVIEWED 10/27/2023 8:29 AM CDT [facility] Macrocytosis MODERATE(A) (none) 10/27/2023 8:29 AM CDT [facility] Polychromatic Cells MODERATE(A) (none) 10/27/2023 8:29 AM CDT [facility] Blood BLOOD SPECIMEN / Unknown Venipuncture / Unknown 10/27/2023 7:37 AM CDT 10/27/2023 7:37 AM CDT Tamara Bauman MD LAB - HEMATOLOGY ORD ERABLES [facility] [address] [place] [address] * (ABNORMAL) CBC W AUTO DIFFERENTIAL (10/27/2023 7:37 AM CDT) WBC 14.5(H) 4.0 - 10.7 x10E9/L 10/27/2023 8:30 AM CDT [facility] RBC Count 3.21(L) 4.30 - 5.80 x10E12/L 10/27/2023 8:30 AM CDT [facility] Hemoglobin 10.2(L) 13.3 - 17.5 g/dL 10/27/2023 8:30 AM CDT [facility] Hematocrit 32.2(L) 38.7 - 51.1 % 10/27/2023 8:30 AM CDT [facility] MCV 100.3(H) 80.0 - 98.0 fL 10/27/2023 8:30 AM CDT [facility] MCH 31.8 26.7 - 33.6 pg 10/27/2023 8:30 AM CDT [facility] MCHC 31.7 31.7 - 36.3 g/dL 10/27/2023 8:30 AM CDT [facility] RDW-CV 18.3(H) 11.3 - 14.8 % 10/27/2023 8:30 AM CDT [facility] Platelet Count 196 150 - 420 x10E9/L 10/27/2023 8:30 AM CDT [facility] MPV 13.8(H) 7.8 - 11.4 fL 10/27/2023 8:30 AM CDT [facility] Blood BLOOD SPECIMEN / Unknown Venipuncture / Unknown 10/27/2023 7:37 AM CDT 10/27/2023 7:37 AM CDT Tamara Bauman MD LAB - HEMATOLOGY ORD ERABLES Performing Organization Address City/[facility]/ZIP Co de Phone Number [facility] [address] [place] [address] * MAGNESIUM BLOOD (10/27/2023 7:37 AM CDT) Magnesium 1.9 1.6 - 2.6 mg/dL 10/27/2023 7:59 AM CDT [facility] Blood BLOOD SPECIMEN / Unknown Venipuncture / Unknown 10/27/2023 7:37 AM CDT 10/27/2023 7:37 AM CDT Tamara Bauman MD LAB - CHEMISTRY ORDE RABANGELIA Performing Organization Address City/[facility]/ZIP Co de Phone Number [facility] [address] [place] [address] * (ABNORMAL) GLUCOSE - POINT OF CARE (10/26/2023 10:08 PM CDT) Glucose WB/POC 130(H) 70 - 106 mg/dL 10/27/2023 9:26 AM CDT [facility] Specimen Type Cap Fingerstick 2023 9:26 AM CDT [facility] Blood BLOOD SPECIMEN / Unknown 10/26/2023 10:08 PM CDT 10/27/2023 9:26 AM CDT Dipak Padilla MD LAB - POINT OF CARE ORDERABLES Performing Organization Address [facility]/ZIP Co de Phone Number [facility] [address] [place] [address] * (ABNORMAL) GLUCOSE - POINT OF CARE (10/26/2023 8:37 PM CDT) Glucose WB/POC 145(H) 70 - 106 mg/dL 10/26/2023 9:14 PM CDT [facility] Specimen Type Cap Fingerstick 2023 9:14 PM CDT [facility] Blood BLOOD SPECIMEN / Unknown 10/26/2023 8:37 PM CDT 10/26/2023 9:14 PM CDT Dipak Padilla MD LAB - POINT OF CARE ORDERABLES Performing Organization Address [facility] Co de Phone Number [facility] [address] [place] [address] * (ABNORMAL) GLUCOSE - POINT OF CARE (10/26/2023 5:12 PM CDT) Glucose WB/POC 133(H) 70 - 106 mg/dL 10/26/2023 5:19 PM CDT [facility] Specimen Type Cap Fingerstick 2023 5:19 PM CDT [facility] Blood BLOOD SPECIMEN / Unknown 10/26/2023 5:12 PM CDT 10/26/2023 5:18 PM CDT Dipak Padilla MD LAB - POINT OF CARE ORDERABLES Performing Organization Address [facility] Co de Phone Number [facility] [address] [place] [address] * XR ELBOW RIGHT 2VW (10/26/2023 3:21 [...] - 106 mg/dL 10/26/2023 12:33 PM CDT [facility] Specimen Type Cap Fingerstick 2023 12:33 PM CDT [facility] Blood BLOOD SPECIMEN / Unknown 10/26/2023 12:23 PM CDT 10/26/2023 12:32 PM CDT Dipak Padilla MD LAB - POINT OF CARE ORDERABLES [facility] [address] [place] [address] * (ABNORMAL) GLUCOSE - POINT OF CARE (10/26/2023 8:00 AM CDT) Glucose WB/POC 117(H) 70 - 106 mg/dL 10/26/2023 8:09 AM CDT [facility] Specimen Type Cap Fingerstick 2023 8:09 AM CDT [facility] Blood BLOOD SPECIMEN / Unknown 10/26/2023 8:00 AM CDT 10/26/2023 8:09 AM CDT Dipak Padilla MD LAB - POINT OF CARE ORDERABLES [facility] [address] [place] [address] * (ABNORMAL) DIFFERENTIAL MANUAL (10/26/2023 6:39 AM CDT) Pathologist [facility] Neutrophil % 82(H) 41 - 74 % [facility] Lymphocyte % 4(L) 17 - 47 % 10/26/2023 8:47 AM [facility] Monocyte % 8 3 - 11 % 10/26/2023 8:47 AM [facility] Eosinophil % 2 0 - 7 % 10/26/2023 8:47 AM [facility] Metamyelocyte % 2(H) 0% % 8:47 AM [facility] Myelocyte % 2(H) 0% % 10/26/2023 8:47 AM [facility] Neutrophil Absolute 14.51(H) 1.60 - 7.50 x10E9/L 10/26/2023 8:47 AM [facility] Lymphocyte Absolute 0.71(L) 1.00 - 4.40 x10E9/L 10/26/2023 8:47 AM [facility] Monocyte Absolute 1.42(H) 0.15 - 1.00 x10E9/L 10/26/2023 8:47 AM [facility] Eosinophil Absolute 0.35 0.00 - 0.60 x10E9/L 10/26/2023 8:47 AM [facility] RBC Morphology NORMAL 10/26/2023 8:47 AM CDT [facility] Blood BLOOD SPECIMEN / Unknown Lab Venipuncture / Unknown 10/26/2023 6:39 AM CDT 10/26/2023 6:44 AM CDT Tamara Bauman MD LAB - HEMATOLOGY ORD ERABLES [facility] [address] [place] [address] * (ABNORMAL) CBC W AUTO DIFFERENTIAL (10/26/2023 6:39 AM CDT) WBC 17.7(H) 4.0 - 10.7 x10E9/L 10/26/2023 8:47 AM CDT [facility] RBC Count 3.39(L) 4.30 - 5.80 x10E12/L 10/26/2023 8:47 AM [facility] Hemoglobin 10.8(L) 13.3 - 17.5 g/dL 10/26/2023 8:47 AM T [facility] Hematocrit 33.3(L) 38.7 - 51.1 % 10/26/2023 8:47 AM [facility] MCV 98.2(H) 80.0 - 98.0 fL 10/26/2023 8:47 [facility] MCH 31.9 26.7 - 33.6 pg 10/26/2023 8:47 AM CDT [facility] MCHC 32.4 31.7 - 36.3 g/dL 10/26/2023 8:47 AM [facility] RDW-CV 17.9(H) 11.3 - 14.8 % 10/26/2023 8:47 AM [facility] Platelet Count 195 150 - 420 x10E9/L 10/26/2023 8:47 AM [facility] MPV 14.0(H) 7.8 - 11.4 fL 10/26/2023 8:47 AM [facility] Blood BLOOD SPECIMEN / Unknown Lab Venipuncture / Unknown 10/26/2023 6:39 AM CDT 10/26/2023 6:44 AM CDT Tamara Bauman MD LAB - HEMATOLOGY ORD ERABLES Performing Organization Address City/[facility]/ZIP Co de Phone Number [facility] [address] [place] [address] * MAGNESIUM BLOOD (10/26/2023 3:59 AM CDT) Magnesium 1.8 1.6 - 2.6 mg/dL 10/26/2023 4:51 AM CDT [facility] Blood BLOOD SPECIMEN / Unknown Lab Venipuncture / Unknown 10/26/2023 3:59 AM CDT 10/26/2023 4:26 AM CDT Tamara Bauman MD LAB - CHEMISTRY ORDE RABANGELIA Performing Organization Address [facility]/ZIP Co de Phone Number [facility] [address] [place] [address] * (ABNORMAL) RENAL FUNCTION PANEL (10/26/2023 3:59 AM CDT) Glucose 103 70 - 105 mg/dL 10/26/2023 4:51 AM [facility] Sodium 144 136 - 145 mmol/L 10/26/2023 4:51 AM [facility] Potassium 4.1 3.5 - 5.1 mmol/L 10/26/2023 4:51 AM [facility] Chloride 113(H) 98 - 107 mmol/L 10/26/2023 4:51 AM [facility] CO2 19(L) 22 - 29 mmol/L 10/26/2023 4:51 AM [facility] Calcium 9.3 8.4 - 10.4 mg/dL 10/26/2023 4:51 AM [facility] Anion Gap 12 6 - 16 mmol/L 10/26/2023 4:51 AM [facility] BUN 17 7 - 26 mg/dL 10/26/2023 4:51 AM [facility] Creatinine 1.08 0.72 - 1.25 mg/dL 10/26/2023 4:51 AM [facility] Albumin 2.4(L) 3.4 - 5.0 gm/dL 10/26/2023 4:51 AM CDT [facility] Phosphorus 2.6 2.3 - 4.7 mg/dL 10/26/2023 4:51 AM CDT [facility] eGFR by CKD-EPI 72(L) >=90 mL/min/1.7 3 m2 10/26/2023 4:51 AM CDT [facility] Blood BLOOD SPECIMEN / Unknown Lab Venipuncture / Unknown 10/26/2023 3:59 AM CDT 10/26/2023 4:26 AM CDT Dipak Padilla MD LAB - CHEMISTRY ORDE RAISA [facility] [address] [place] [address] * (ABNORMAL) GLUCOSE - POINT OF CARE (10/25/2023 8:10 PM CDT) Glucose WB/POC 146(H) 70 - 106 mg/dL 10/25/2023 8:19 PM CDT [facility] Specimen Type Cap Fingerstick 2023 8:19 PM CDT [facility] Blood BLOOD SPECIMEN / Unknown 10/25/2023 8:10 PM CDT 10/25/2023 8:19 PM CDT Dipak Padilla MD LAB - POINT OF CARE ORDERABLES [facility] [address] [place] [address] * (ABNORMAL) GLUCOSE - POINT OF CARE (10/25/2023 5:41 PM CDT) Glucose WB/POC 143(H) 70 - 106 mg/dL 10/25/2023 5:54 PM CDT [facility] Specimen Type Cap Fingerstick 2023 5:54 PM CDT [facility] Blood BLOOD SPECIMEN / Unknown 10/25/2023 5:41 PM CDT 10/25/2023 5:54 PM CDT Dipak Padilla MD LAB - POINT OF CARE ORDERABLES Performing Organization Address [facility]/ZIP Co de Phone Number [facility] [address] [place] [address] * (ABNORMAL) GLUCOSE - POINT OF CARE (10/25/2023 11:37 AM CDT) Glucose WB/POC 141(H) 70 - 106 mg/dL 10/25/2023 12:03 PM CDT [facility] Specimen Type Cap Fingerstick 2023 12:03 PM CDT [facility] Blood BLOOD SPECIMEN / Unknown 10/25/2023 11:37 AM CDT 10/25/2023 12:03 PM CDT Dipak Padilla MD LAB - POINT OF CARE ORDERABLES Performing Organization Address [facility] Co de Phone Number [facility] [address] [place] [address] * GLUCOSE - POINT OF CARE (10/25/2023 8:04 AM CDT) Glucose WB/POC 97 70 - 106 mg/dL 10/25/2023 8:52 AM CDT [facility] Specimen Type Cap Fingerstick 2023 8:52 AM CDT [facility] Blood BLOOD SPECIMEN / Unknown 10/25/2023 8:04 AM CDT 10/25/2023 8:52 AM CDT Dipak Padilla MD LAB - POINT OF CARE ORDERABLES Performing Organization Address City/[facility]/ZIP Co de Phone Number [facility] [address] [place] [address] * (ABNORMAL) CBC W AUTO DIFFERENTIAL (10/25/2023 4:11 AM CDT) WBC 14.5(H) 4.0 - 10.7 x10E9/L 10/25/2023 5:07 AM CDT [facility] RBC Count 3.72(L) 4.30 - 5.80 x10E12/L 10/25/2023 5:07 AM [facility] Hemoglobin 11.7(L) 13.3 - 17.5 g/dL 10/25/2023 5:07 AM [facility] Hematocrit 38.2(L) 38.7 - 51.1 % 10/25/2023 5:07 AM [facility] MCV 102.7(H) 80.0 - 98.0 fL 10/25/2023 5:07 AM [facility] MCH 31.5 26.7 - 33.6 pg 10/25/2023 5:07 AM [facility] MCHC 30.6(L) 31.7 - 36.3 g/dL 10/25/2023 5:07 AM [facility] RDW-CV 18.0(H) 11.3 - 14.8 % 10/25/2023 5:07 AM [facility] Platelet Count 175 150 - 420 x10E9/L 10/25/2023 5:07 AM [facility] MPV 13.9(H) 7.8 - 11.4 fL 10/25/2023 5:07 AM [facility] Neutrophil % 77.5(H) 41.0 - 74.0 % 10/25/2023 5:07 AM [facility] Lymphocyte % 7.9(L) 17.0 - 47.0 % 10/25/2023 5:07 AM [facility] Monocyte % 9.0 3.0 - 11.0 % 10/25/2023 5:07 AM [facility] Eosinophil % 3.1 0.0 - 7.0 % 10/25/2023 5:07 AM [facility] Basophil % 0.5 0.0 - 1.6 % 10/25/2023 5:07 AM [facility] Immature Granulocytes % 2.0(H) 0.0 - 1.0 % 10/25/2023 5:07 AM [facility] Neutrophil Absolute 11.23(H) 1.60 - 7.50 x10E9/L 10/25/2023 5:07 AM [facility] Lymphocyte Absolute 1.15 1.00 - 4.40 x10E9/L 10/25/2023 5:07 AM CDT [facility] Monocyte Absolute 1.30(H) 0.15 - 1.00 x10E9/L 10/25/2023 5:07 AM CDT [facility] Eosinophil Absolute 0.45 0.00 - 0.60 x10E9/L 10/25/2023 5:07 AM CDT [facility] Basophil Absolute 0.07 0.00 - 0.13 x10E9/L 10/25/2023 5:07 AM CDT [facility] Blood BLOOD SPECIMEN / Unknown Lab Venipuncture / Unknown 10/25/2023 4:11 AM CDT 10/25/2023 4:35 AM CDT Tamara Bauman MD LAB - HEMATOLOGY ORD ERABLES Performing Organization Address City/[facility]/ZIP Co de Phone Number [facility] [address] [place] [address] * MAGNESIUM BLOOD (10/25/2023 4:11 AM CDT) Magnesium 1.7 1.6 - 2.6 mg/dL 10/25/2023 4:54 AM CDT [facility] Blood BLOOD SPECIMEN / Unknown Lab Venipuncture / Unknown 10/25/2023 4:11 AM CDT 10/25/2023 4:34 AM CDT Tamara Bauman MD LAB - CHEMISTRY ORDMarj KLINE Performing Organization Address City/[facility]/ZIP Co de Phone Number [facility] [address] [place] [address] * (ABNORMAL) RENAL FUNCTION PANEL (10/25/2023 4:11 AM CDT) Glucose 109(H) 70 - 105 mg/dL 10/25/2023 4:54 AM CDT [facility] Sodium 146(H) 136 - 145 mmol/L 10/25/2023 4:54 AM CDT [facility] Potassium 3.9 3.5 - 5.1 mmol/L 10/25/2023 4:54 AM CDT [facility] Chloride 115(H) 98 - 107 mmol/L 10/25/2023 4:54 AM CDT [facility] CO2 23 22 - 29 mmol/L 10/25/2023 4:54 AM CDT [facility] Calcium 8.9 8.4 - 10.4 mg/dL 10/25/2023 4:54 AM [facility] Anion Gap 8 6 - 16 mmol/L 10/25/2023 4:54 AM T [facility] BUN 19 7 - 26 mg/dL 10/25/2023 4:54 AM T [facility] Creatinine 1.27(H) 0.72 - 1.25 mg/dL 10/25/2023 4:54 AM [facility] Albumin 2.5(L) 3.4 - 5.0 gm/dL 10/25/2023 4:54 AM [facility] Phosphorus 2.5 2.3 - 4.7 mg/dL 10/25/2023 4:54 AM [facility] eGFR by CKD-EPI 59(L) >=90 mL/min/1.7 3 m2 10/25/2023 4:54 AM T [facility] Blood BLOOD SPECIMEN / Unknown Lab Venipuncture / Unknown 10/25/2023 4:11 AM CDT 10/25/2023 4:34 AM CDT Tamara Bauman MD LAB - CHEMISTRY ROYCE KLINE Performing Organization Address City/[facility] Co pr Phone Number [facility] [address] [place] [address] * (ABNORMAL) GLUCOSE - POINT OF CARE (10/24/2023 7:51 PM CDT) [facility] Glucose WB/POC 129(H) 70 - 106 mg/dL 10/24/2023 8:00 PM CDT [facility] Specimen Type Cap Fingerstick 2023 8:00 PM CDT [facility] Blood BLOOD SPECIMEN / Unknown 10/24/2023 7:51 PM CDT 10/24/2023 8:00 PM CDT Jayme Rodriguez MD LAB - POINT OF CARE ORDERABLES [facility] [address] [place] [address] * (ABNORMAL) GLUCOSE - POINT OF CARE (10/24/2023 5:47 PM CDT) Glucose WB/POC 120(H) 70 - 106 mg/dL 10/24/2023 5:57 PM CDT [facility] Specimen Type Cap Fingerstick 2023 5:57 PM CDT [facility] Blood BLOOD SPECIMEN / Unknown 10/24/2023 5:47 PM CDT 10/24/2023 5:57 PM CDT Jayme Rodriguez MD LAB - POINT OF CARE ORDERABLES Performing Organization Address [facility] Co de Phone Number [facility] [address] [place] [address] * (ABNORMAL) GLUCOSE - POINT OF CARE (10/24/2023 12:32 PM CDT) Glucose WB/POC 112(H) 70 - 106 mg/dL 10/24/2023 12:42 PM CDT [facility] Specimen Type Cap Fingerstick 2023 12:42 PM CDT [facility] Blood BLOOD SPECIMEN / Unknown 10/24/2023 12:32 PM CDT 10/24/2023 12:42 PM CDT Jayme Rodriguez MD LAB - POINT OF CARE ORDERABLES Performing Organization Address City/[facility]/ZIP Co de Phone Number [facility] [address] [place] [address] * (ABNORMAL) GLUCOSE - POINT OF CARE (10/24/2023 10:19 AM CDT) Glucose WB/POC 127(H) 70 - 106 mg/dL 10/24/2023 10:24 AM CDT [facility] Specimen Type Cap Fingerstick 2023 10:24 AM CDT [facility] Blood BLOOD SPECIMEN / Unknown 10/24/2023 10:19 AM CDT 10/24/2023 10:24 AM CDT Jayme Rodriguez MD LAB - POINT OF CARE ORDERABLES [facility] [address] [place] [address] * XR CHEST 1VW (10/24/2023 5:17 AM [...] 11.3 - 14.8 % 10/24/2023 6:23 AM [facility] Platelet Count 171 150 - 420 x10E9/L 10/24/2023 6:23 AM [facility] MPV 13.5(H) 7.8 - 11.4 fL 10/24/2023 6:23 AM [facility] Neutrophil % 75.6(H) 41.0 - 74.0 % 10/24/2023 6:23 AM [facility] Lymphocyte % 8.3(L) 17.0 - 47.0 % 10/24/2023 6:23 AM [facility] Monocyte % 8.9 3.0 - 11.0 % 10/24/2023 6:23 AM [facility] Eosinophil % 3.5 0.0 - 7.0 % 10/24/2023 6:23 AM [facility] Basophil % 0.6 0.0 - 1.6 % 10/24/2023 6:23 AM [facility] Immature Granulocytes % 3.1(H) 0.0 - 1.0 % 10/24/2023 6:23 AM [facility] Neutrophil Absolute 10.88(H) 1.60 - 7.50 x10E9/L 10/24/2023 6:23 AM [facility] Lymphocyte Absolute 1.20 1.00 - 4.40 x10E9/L 10/24/2023 6:23 AM [facility] Monocyte Absolute 1.28(H) 0.15 - 1.00 x10E9/L 10/24/2023 6:23 AM [facility] Eosinophil Absolute 0.51 0.00 - 0.60 x10E9/L 10/24/2023 6:23 AM [facility] Basophil Absolute 0.08 0.00 - 0.13 x10E9/L 10/24/2023 6:23 AM [facility] Blood BLOOD SPECIMEN / Unknown Lab Venipuncture / Unknown 10/24/2023 5:17 AM CDT 10/24/2023 6:09 AM T Tamara Bauman MD LAB - HEMATOLOGY ORD ERABLES Performing Organization Address City/[facility]/ZIP Co de Phone Number [facility] [address] [place] [address] * MAGNESIUM BLOOD (10/24/2023 5:17 AM CDT) [facility] Magnesium 1.8 1.6 - 2.6 mg/dL 10/24/2023 6:33 AM T [facility] Blood BLOOD SPECIMEN / Unknown Lab Venipuncture / Unknown 10/24/2023 5:17 AM CDT 10/24/2023 6:10 AM CDT Tamara Bauman MD LAB - CHEMISTRY ROYCE KLINE Performing Organization Address [facility]/ZIP Co de Phone Number [facility] [address] [place] [address] * (ABNORMAL) RENAL FUNCTION PANEL (10/24/2023 5:17 AM CDT) [facility] Glucose 101 70 - 105 mg/dL 10/24/2023 6:33 AM [facility] Sodium 144 136 - 145 mmol/L 10/24/2023 6:33 AM [facility] Potassium 3.6 3.5 - 5.1 mmol/L 10/24/2023 6:33 AM [facility] Chloride 115(H) 98 - 107 mmol/L 10/24/2023 6:33 AM [facility] CO2 21(L) 22 - 29 mmol/L 10/24/2023 6:33 AM [facility] Calcium 8.8 8.4 - 10.4 mg/dL 10/24/2023 6:33 AM [facility] Anion Gap 8 6 - 16 mmol/L 10/24/2023 6:33 AM [facility] BUN 22 7 - 26 mg/dL 10/24/2023 6:33 AM [facility] Creatinine 1.29(H) 0.72 - 1.25 mg/dL 10/24/2023 6:33 AM [facility] Albumin 2.4(L) 3.4 - 5.0 gm/dL 10/24/2023 6:33 AM CDT [facility] Phosphorus 2.4 2.3 - 4.7 mg/dL 10/24/2023 6:33 AM CDT [facility] eGFR by CKD-EPI 58(L) >=90 mL/min/1.7 3 m2 10/24/2023 6:33 AM CDT [facility] Blood BLOOD SPECIMEN / Unknown Lab Venipuncture / Unknown 10/24/2023 5:17 AM CDT 10/24/2023 6:10 AM CDT Tamara Bauman MD LAB - CHEMISTRY ROYCE KLINE [facility] [address] [place] [address] * (ABNORMAL) GLUCOSE - POINT OF CARE (10/23/2023 9:00 PM CDT) Glucose WB/POC 122(H) 70 - 106 mg/dL 10/23/2023 9:24 PM CDT [facility] Specimen Type Cap Fingerstick 2023 9:24 PM CDT [facility] Blood BLOOD SPECIMEN / Unknown 10/23/2023 9:00 PM CDT 10/23/2023 9:24 PM CDT Jayme Rodriguez MD LAB - POINT OF CARE ORDERABLES [facility] [address] [place] [address] * (ABNORMAL) GLUCOSE - POINT OF CARE (10/23/2023 5:12 PM CDT) Glucose WB/POC 158(H) 70 - 106 mg/dL 10/24/2023 9:29 AM CDT [facility] Specimen Type Arterial 10/24/2023 9:29 AM CDT [facility] Blood BLOOD SPECIMEN / Unknown 10/23/2023 5:12 PM CDT 10/24/2023 9:29 AM CDT Jayme Rodriguez MD LAB - POINT OF CARE ORDERABLES Performing Organization Address [facility] Co de Phone Number [facility] [address] [place] [address] * GLUCOSE - POINT OF CARE (10/23/2023 12:04 PM CDT) Glucose WB/POC 100 70 - 106 mg/dL 10/23/2023 12:13 PM CDT [facility] Specimen Type Arterial 10/23/2023 12:13 PM CDT [facility] Blood BLOOD SPECIMEN / Unknown 10/23/2023 12:04 PM CDT 10/23/2023 12:13 PM CDT Jayme Rodriguez MD LAB - POINT OF CARE ORDERABLES Performing Organization Address [facility] Co de Phone Number [facility] [address] [place] [address] * GLUCOSE - POINT OF CARE (10/23/2023 8:17 AM CDT) Pathologist [facility] Glucose WB/POC 89 70 - 106 mg/dL 10/23/2023 8:27 AM CDT [facility] Specimen Type Arterial 10/23/2023 8:27 AM CDT [facility] Blood BLOOD SPECIMEN / Unknown 10/23/2023 8:17 AM CDT 10/23/2023 8:27 AM CDT Jayme Rodriguez MD LAB - POINT OF CARE ORDERABLES Performing Organization Address [facility] Co de Phone Number [facility] [address] [place] [address] * (ABNORMAL) CBC W AUTO DIFFERENTIAL (10/23/2023 4:37 AM CDT) WBC 15.2(H) 4.0 - 10.7 x10E9/L 10/23/2023 5:03 AM CDT [facility] RBC Count 3.76(L) 4.30 - 5.80 x10E12/L 10/23/2023 5:03 AM CDT [facility] Hemoglobin 11.6(L) 13.3 - 17.5 g/dL 10/23/2023 5:03 AM [facility] Hematocrit 37.0(L) 38.7 - 51.1 % 10/23/2023 5:03 AM [facility] MCV 98.4(H) 80.0 - 98.0 fL 10/23/2023 5:03 AM [facility] MCH 30.9 26.7 - 33.6 pg 10/23/2023 5:03 AM [facility] MCHC 31.4(L) 31.7 - 36.3 g/dL 10/23/2023 5:03 AM [facility] RDW-CV 17.1(H) 11.3 - 14.8 % 10/23/2023 5:03 AM [facility] Platelet Count 167 150 - 420 x10E9/L 10/23/2023 5:03 AM [facility] MPV 12.9(H) 7.8 - 11.4 fL 10/23/2023 5:03 AM [facility] Neutrophil % 75.4(H) 41.0 - 74.0 % 10/23/2023 5:03 AM [facility] Lymphocyte % 8.5(L) 17.0 - 47.0 % 10/23/2023 5:03 AM [facility] Monocyte % 7.3 3.0 - 11.0 % 10/23/2023 5:03 AM [facility] Eosinophil % 3.8 0.0 - 7.0 % 10/23/2023 5:03 AM [facility] Basophil % 0.6 0.0 - 1.6 % 10/23/2023 5:03 AM [facility] Immature Granulocytes % 4.4(H) 0.0 - 1.0 % 10/23/2023 5:03 AM [facility] Neutrophil Absolute 11.48(H) 1.60 - 7.50 x10E9/L 10/23/2023 5:03 AM [facility] Lymphocyte Absolute 1.30 1.00 - 4.40 x10E9/L 10/23/2023 5:03 AM [facility] Monocyte Absolute 1.12(H) 0.15 - 1.00 x10E9/L 10/23/2023 5:03 AM CDT [facility] Eosinophil Absolute 0.58 0.00 - 0.60 x10E9/L 10/23/2023 5:03 AM CDT [facility] Basophil Absolute 0.09 0.00 - 0.13 x10E9/L 10/23/2023 5:03 AM CDT [facility] Blood BLOOD SPECIMEN / Unknown Lab Venipuncture / Unknown 10/23/2023 4:37 AM CDT 10/23/2023 4:56 AM CDT Tamara Bauman MD LAB - HEMATOLOGY ORD ERABLES [facility] [address] [place] [address] * MAGNESIUM BLOOD (10/23/2023 4:37 AM CDT) Magnesium 1.8 1.6 - 2.6 mg/dL 10/23/2023 5:18 AM T [facility] Blood BLOOD SPECIMEN / Unknown Lab Venipuncture / Unknown 10/23/2023 4:37 AM CDT 10/23/2023 4:55 AM CDT Tamara Bauman MD LAB - CHEMISTRY ORDE RABANGELIA [facility] [address] [place] [address] * (ABNORMAL) RENAL FUNCTION PANEL (10/23/2023 4:37 AM CDT) Glucose 104 70 - 105 mg/dL 10/23/2023 5:18 AM CDT [facility] Sodium 142 136 - 145 mmol/L 10/23/2023 5:18 AM CDT [facility] Potassium 3.6 3.5 - 5.1 mmol/L 10/23/2023 5:18 AM CDT [facility] Chloride 114(H) 98 - 107 mmol/L 10/23/2023 5:18 AM CDT [facility] CO2 22 22 - 29 mmol/L 10/23/2023 5:18 AM CDT [facility] Calcium 8.2(L) 8.4 - 10.4 mg/dL 10/23/2023 5:18 AM CDT [facility] Anion Gap 6 6 - 16 mmol/L 10/23/2023 5:18 AM CDT [facility] BUN 23 7 - 26 mg/dL 10/23/2023 5:18 AM CDT [facility] Creatinine 1.19 0.72 - 1.25 mg/dL 10/23/2023 5:18 AM T [facility] Albumin 2.3(L) 3.4 - 5.0 gm/dL 10/23/2023 5:18 AM CDT [facility] Phosphorus 2.8 2.3 - 4.7 mg/dL 10/23/2023 5:18 AM [facility] eGFR by CKD-EPI 64(L) >=90 mL/min/1.7 3 m2 10/23/2023 5:18 AM CDT [facility] Blood BLOOD SPECIMEN / Unknown Lab Venipuncture / Unknown 10/23/2023 4:37 AM CDT 10/23/2023 4:55 AM CDT Tamara Bauman MD LAB - CHEMISTRY ORDE RAISA [facility] [address] [place] [address] * (ABNORMAL) GLUCOSE - POINT OF CARE (10/22/2023 8:10 PM CDT) [facility] Glucose WB/POC 143(H) 70 - 106 mg/dL 10/22/2023 8:16 PM CDT [facility] Specimen Type Cap Fingerstick 2023 8:16 PM CDT [facility] Blood BLOOD SPECIMEN / Unknown 10/22/2023 8:10 PM CDT 10/22/2023 8:15 PM CDT Jayme Rodriguez MD LAB - POINT OF CARE ORDERABLES [facility] [address] [place] [address] * XR ABDOMEN KUB (10/22/2023 5:19 PM [...] - 106 mg/dL 10/22/2023 5:30 PM CDT [facility] Specimen Type Arterial 10/22/2023 5:30 PM CDT [facility] Blood BLOOD SPECIMEN / Unknown 10/22/2023 5:17 PM CDT 10/22/2023 5:30 PM CDT Jayme Rodriguez MD LAB - POINT OF CARE ORDERABLES [facility] [address] [place] [address] * (ABNORMAL) BASIC METABOLIC PANEL (CALCIUM TOTAL) (10/22/2023 3:32 PM CDT) Glucose 147(H) 70 - 105 mg/dL 10/22/2023 4:03 PM [facility] Sodium 141 136 - 145 mmol/L 10/22/2023 4:03 PM [facility] Potassium 3.4(L) 3.5 - 5.1 mmol/L 10/22/2023 4:03 PM [facility] Chloride 113(H) 98 - 107 mmol/L 10/22/2023 4:03 PM [facility] CO2 21(L) 22 - 29 mmol/L 10/22/2023 4:03 PM [facility] Calcium 8.3(L) 8.4 - 10.4 mg/dL 10/22/2023 4:03 PM [facility] Anion Gap 7 6 - 16 mmol/L 10/22/2023 4:03 PM [facility] BUN 26 7 - 26 mg/dL 10/22/2023 4:03 PM [facility] Creatinine 1.26(H) 0.72 - 1.25 mg/dL 10/22/2023 4:03 PM [facility] eGFR by CKD-EPI 60(L) >=90 mL/min/1.7 3 m2 10/22/2023 4:03 PM [facility] Blood BLOOD SPECIMEN / Unknown Lab Venipuncture / Unknown 10/22/2023 3:32 PM CDT 10/22/2023 3:47 PM CDT Celso Denson MD LAB - CHEMISTRY ROYCE KLINE Performing Organization Address [facility] Co de Phone Number [facility] [address] [place] [address] * (ABNORMAL) GLUCOSE - POINT OF CARE (10/22/2023 11:42 AM CDT) Glucose WB/POC 129(H) 70 - 106 mg/dL 10/22/2023 11:49 AM CDT [facility] Specimen Type Cap Fingerstick 2023 11:49 AM CDT [facility] Blood BLOOD SPECIMEN / Unknown 10/22/2023 11:42 AM CDT 10/22/2023 11:49 AM CDT Jayme Rodriguez MD LAB - POINT OF CARE ORDERABLES Performing Organization Address [facility] Co de Phone Number [facility] [address] [place] [address] * GLUCOSE - POINT OF CARE (10/22/2023 6:47 AM CDT) Glucose WB/POC 103 70 - 106 mg/dL 10/22/2023 8:19 AM CDT [facility] Specimen Type Cap Fingerstick 2023 8:19 AM CDT [facility] Blood BLOOD SPECIMEN / Unknown 10/22/2023 6:47 AM CDT 10/22/2023 8:19 AM CDT Jayme Rodriguez MD LAB - POINT OF CARE ORDERABLES Performing Organization Address [facility]/ZIP Co de Phone Number [facility] [address] [place] [address] * (ABNORMAL) CBC W AUTO DIFFERENTIAL (10/22/2023 3:31 AM CDT) WBC 14.9(H) 4.0 - 10.7 x10E9/L 10/22/2023 3:43 AM [facility] RBC Count 3.75(L) 4.30 - 5.80 x10E12/L 10/22/2023 3:43 AM [facility] Hemoglobin 11.6(L) 13.3 - 17.5 g/dL 10/22/2023 3:43 AM [facility] Hematocrit 36.8(L) 38.7 - 51.1 % 10/22/2023 3:43 AM [facility] MCV 98.1(H) 80.0 - 98.0 fL 10/22/2023 3:43 AM [facility] MCH 30.9 26.7 - 33.6 pg 10/22/2023 3:43 AM [facility] MCHC 31.5(L) 31.7 - 36.3 g/dL 10/22/2023 3:43 AM [facility] RDW-CV 16.8(H) 11.3 - 14.8 % 10/22/2023 3:43 AM [facility] Platelet Count 164 150 - 420 x10E9/L 10/22/2023 3:43 AM [facility] MPV 12.9(H) 7.8 - 11.4 fL 10/22/2023 3:43 AM [facility] Neutrophil % 74.6(H) 41.0 - 74.0 % 10/22/2023 3:43 AM [facility] Lymphocyte % 9.1(L) 17.0 - 47.0 % 10/22/2023 3:43 AM [facility] Monocyte % 6.5 3.0 - 11.0 % 10/22/2023 3:43 AM [facility] Eosinophil % 4.1 0.0 - 7.0 % 10/22/2023 3:43 AM [facility] Basophil % 0.7 0.0 - 1.6 % 10/22/2023 3:43 AM [facility] Immature Granulocytes % 5.0(H) 0.0 - 1.0 % 10/22/2023 3:43 AM [facility] Neutrophil Absolute 11.08(H) 1.60 - 7.50 x10E9/L 10/22/2023 3:43 AM CDT [facility] Lymphocyte Absolute 1.35 1.00 - 4.40 x10E9/L 10/22/2023 3:43 AM CDT [facility] Monocyte Absolute 0.97 0.15 - 1.00 x10E9/L 10/22/2023 3:43 AM CDT [facility] Eosinophil Absolute 0.61(H) 0.00 - 0.60 x10E9/L 10/22/2023 3:43 AM CDT [facility] Basophil Absolute 0.10 0.00 - 0.13 x10E9/L 10/22/2023 3:43 AM CDT [facility] NRBC 0.8(H) <=0.0 /100 WBC 10/22/2023 3:43 AM CDT [facility] Blood BLOOD SPECIMEN / Unknown Lab Venipuncture / Unknown 10/22/2023 3:31 AM CDT 10/22/2023 3:39 AM CDT Tamara Bauman MD LAB - HEMATOLOGY ORD ERABLES [facility] [address] [place] [address] * MAGNESIUM BLOOD (10/22/2023 3:31 AM CDT) Magnesium 1.9 1.6 - 2.6 mg/dL 10/22/2023 4:01 AM CDT [facility] Blood BLOOD SPECIMEN / Unknown Lab Venipuncture / Unknown 10/22/2023 3:31 AM CDT 10/22/2023 3:39 AM CDT Tamara Bauman MD LAB - CHEMISTRY ROYCE KLINE [facility] [address] [place] [address] * (ABNORMAL) RENAL FUNCTION PANEL (10/22/2023 3:31 AM CDT) Glucose 118(H) 70 - 105 mg/dL 10/22/2023 4:01 AM [facility] Sodium 144 136 - 145 mmol/L 10/22/2023 4:01 AM [facility] Potassium 3.0(L) 3.5 - 5.1 mmol/L 10/22/2023 4:01 AM [facility] Chloride 115(H) 98 - 107 mmol/L 10/22/2023 4:01 AM [facility] CO2 23 22 - 29 mmol/L 10/22/2023 4:01 AM [facility] Calcium 8.2(L) 8.4 - 10.4 mg/dL 10/22/2023 4:01 AM [facility] Anion Gap 6 6 - 16 mmol/L 10/22/2023 4:01 AM [facility] BUN 29(H) 7 - 26 mg/dL 10/22/2023 4:01 AM [facility] Creatinine 1.27(H) 0.72 - 1.25 mg/dL 10/22/2023 4:01 AM [facility] Albumin 2.4(L) 3.4 - 5.0 gm/dL 10/22/2023 4:01 AM [facility] Phosphorus 2.2(L) 2.3 - 4.7 mg/dL 10/22/2023 4:01 AM [facility] eGFR by CKD-EPI 59(L) >=90 mL/min/1.7 3 m2 10/22/2023 4:01 AM [facility] Blood BLOOD SPECIMEN / Unknown Lab Venipuncture / Unknown 10/22/2023 3:31 AM CDT 10/22/2023 3:39 AM CDT Tamara Bauman MD LAB - CHEMISTRY ROYCE KLINE [facility] Organization Address City/State/ZIP Co de Phone Number [facility] [address] [place] [address] * (ABNORMAL) GLUCOSE - POINT OF CARE (10/21/2023 8:40 PM CDT) Pathologist [facility] Glucose WB/POC 137(H) 70 - 106 mg/dL 10/24/2023 4:46 PM [facility] Specimen Type Cap Fingerstick 2023 4:46 PM CDT [facility] Blood BLOOD SPECIMEN / Unknown 10/21/2023 8:40 PM CDT 10/24/2023 4:46 PM CDT Jayme Rodriguez MD LAB - POINT OF CARE ORDERABLES Performing Organization Address City/[facility]/ZIP Co de Phone Number [facility] [address] [place] [address] * (ABNORMAL) GLUCOSE - POINT OF CARE (10/21/2023 4:54 PM CDT) Glucose WB/POC 135(H) 70 - 106 mg/dL 10/24/2023 4:46 PM CDT [facility] Specimen Type Cap Fingerstick 2023 4:46 PM CDT [facility] Blood BLOOD SPECIMEN / Unknown 10/21/2023 4:54 PM CDT 10/24/2023 4:46 PM CDT Jayme Rodriguez MD LAB - POINT OF CARE ORDERABLES Performing Organization Address [facility] Co de Phone Number [facility] [address] [place] [address] * (ABNORMAL) GLUCOSE - POINT OF CARE (10/21/2023 1:12 PM CDT) Glucose WB/POC 113(H) 70 - 106 mg/dL 10/21/2023 4:39 PM CDT [facility] Specimen Type Cap Fingerstick 2023 4:39 PM CDT [facility] Blood BLOOD SPECIMEN / Unknown 10/21/2023 1:12 PM CDT 10/21/2023 4:39 PM CDT Jayme Rodriguez MD LAB - POINT OF CARE ORDERABLES Performing Organization Address City/[facility]/ZIP Co de Phone Number [facility] [address] [place] [address] * [place] MODIFIED BARIUM SWALLOW W/SPEECH (10/21/2023 [...] Thin liquid: ? No penetration or aspiration. [place] thickness: ? No penetration or aspiration. ?? [...] . Thin liquid: No penetration or aspiration. [place] thickness: No penetration or aspiration. [place] thickness: [...] OF CARE (10/21/2023 7:53 AM CDT) Pathologist [facility] Glucose WB/POC 118(H) 70 - 106 mg/dL 10/21/2023 8:41 AM CDT [facility] Specimen Type Cap Fingerstick 2023 8:41 AM CDT [facility] Blood BLOOD SPECIMEN / Unknown 10/21/2023 7:53 AM CDT 10/21/2023 8:41 AM CDT Jayme Rodriguez MD LAB - POINT OF CARE ORDERABLES Performing Organization Address City/[facility]/ZIP Co de Phone Number [facility] [address] [place] [address] * SLIDE SCAN HEMATOLOGY (10/21/2023 3:41 AM CDT) Pathologist [facility] RBC Morphology NORMAL 10/21/2023 6:55 AM CDT [facility] Blood BLOOD SPECIMEN / Unknown Lab Venipuncture / Unknown 10/21/2023 3:41 AM CDT 10/21/2023 3:43 AM CDT Tamara Bauman MD LAB - HEMATOLOGY ORD ERABLES [facility] [address] [place] [address] * (ABNORMAL) CBC W AUTO DIFFERENTIAL (10/21/2023 3:41 AM CDT) Pathologist [facility] WBC 14.3(H) 4.0 - 10.7 x10E9/L 10/21/2023 6:55 AM CDT [facility] RBC Count 3.90(L) 4.30 - 5.80 x10E12/L 10/21/2023 6:55 AM [facility] Hemoglobin 11.9(L) 13.3 - 17.5 g/dL 10/21/2023 6:55 AM [facility] Hematocrit 38.0(L) 38.7 - 51.1 % 10/21/2023 6:55 AM [facility] MCV 97.4 80.0 - 98.0 fL 10/21/2023 6:55 AM [facility] MCH 30.5 26.7 - 33.6 pg 10/21/2023 6:55 AM [facility] MCHC 31.3(L) 31.7 - 36.3 g/dL 10/21/2023 6:55 AM [facility] RDW-CV 17.2(H) 11.3 - 14.8 % 10/21/2023 6:55 AM [facility] Platelet Count 151 150 - 420 x10E9/L 10/21/2023 6:55 AM [facility] MPV 12.8(H) 7.8 - 11.4 fL 10/21/2023 6:55 AM [facility] Neutrophil % 74.9(H) 41.0 - 74.0 % 10/21/2023 6:55 AM [facility] Lymphocyte % 7.7(L) 17.0 - 47.0 % 10/21/2023 6:55 AM [facility] Monocyte % 6.6 3.0 - 11.0 % 10/21/2023 6:55 AM [facility] Eosinophil % 4.5 0.0 - 7.0 % 10/21/2023 6:55 AM [facility] Basophil % 0.9 0.0 - 1.6 % 10/21/2023 6:55 AM [facility] Immature Granulocytes % 5.4(H) 0.0 - 1.0 % 10/21/2023 6:55 AM [facility] Neutrophil Absolute 10.74(H) 1.60 - 7.50 x10E9/L 10/21/2023 6:55 AM [facility] Lymphocyte Absolute 1.10 1.00 - 4.40 x10E9/L 10/21/2023 6:55 AM CDT [facility] Monocyte Absolute 0.95 0.15 - 1.00 x10E9/L 10/21/2023 6:55 AM CDT [facility] Eosinophil Absolute 0.64(H) 0.00 - 0.60 x10E9/L 10/21/2023 6:55 AM CDT [facility] Basophil Absolute 0.13 0.00 - 0.13 x10E9/L 10/21/2023 6:55 AM CDT [facility] NRBC 2.0(H) <=0.0 /100 WBC 10/21/2023 6:55 AM CDT [facility] Blood BLOOD SPECIMEN / Unknown Lab Venipuncture / Unknown 10/21/2023 3:41 AM CDT 10/21/2023 3:43 AM CDT Tamara Bauman MD LAB - HEMATOLOGY ORD ERABLES Performing Organization Address [facility]/ZIP Co de Phone Number [facility] [address] [place] [address] * MAGNESIUM BLOOD (10/21/2023 3:41 AM CDT) Magnesium 2.1 1.6 - 2.6 mg/dL 10/21/2023 4:02 AM CDT [facility] Blood BLOOD SPECIMEN / Unknown Lab Venipuncture / Unknown 10/21/2023 3:41 AM CDT 10/21/2023 3:43 AM CDT Tamara Bauman MD LAB - CHEMISTRY ORDMarj KLINE [facility] [address] [place] [address] * (ABNORMAL) RENAL FUNCTION PANEL (10/21/2023 3:41 AM CDT) Glucose 132(H) 70 - 105 mg/dL 10/21/2023 4:02 AM CDT [facility] Sodium 148(H) 136 - 145 mmol/L 10/21/2023 4:02 AM CDT [facility] Potassium 3.1(L) 3.5 - 5.1 mmol/L 10/21/2023 4:02 AM [facility] Chloride 119(H) 98 - 107 mmol/L 10/21/2023 4:02 AM [facility] CO2 23 22 - 29 mmol/L 10/21/2023 4:02 AM [facility] Calcium 8.3(L) 8.4 - 10.4 mg/dL 10/21/2023 4:02 AM [facility] Anion Gap 6 6 - 16 mmol/L 10/21/2023 4:02 AM [facility] BUN 37(H) 7 - 26 mg/dL 10/21/2023 4:02 AM [facility] Creatinine 1.41(H) 0.72 - 1.25 mg/dL 10/21/2023 4:02 AM [facility] Albumin 2.4(L) 3.4 - 5.0 gm/dL 10/21/2023 4:02 AM [facility] Phosphorus 2.4 2.3 - 4.7 mg/dL 10/21/2023 4:02 AM [facility] eGFR by CKD-EPI 52(L) >=90 mL/min/1.7 3 m2 10/21/2023 4:02 AM [facility] Blood BLOOD SPECIMEN / Unknown Lab Venipuncture / Unknown 10/21/2023 3:41 AM CDT 10/21/2023 3:43 AM CDT Tamara Bauman MD LAB - CHEMISTRY ROYCE KLINE [facility] Organization Address City/State/ZIP Co de Phone Number [facility] [address] [place] [address] * (ABNORMAL) GLUCOSE - POINT OF CARE (10/20/2023 9:43 PM CDT) [facility] Glucose WB/POC 126(H) 70 - 106 mg/dL 10/21/2023 1:13 AM T [facility] Specimen Type Cap Fingerstick 2023 1:13 AM [facility] Blood BLOOD SPECIMEN / Unknown 10/20/2023 9:43 PM CDT 10/21/2023 1:13 AM CDT Jayme Rodriguez MD LAB - POINT OF CARE ORDERABLES Performing Organization Address City/[facility]/ZIP Co de Phone Number [facility] [address] [place] [address] * (ABNORMAL) GLUCOSE - POINT OF CARE (10/20/2023 5:12 PM CDT) Glucose WB/POC 139(H) 70 - 106 mg/dL 10/24/2023 4:46 PM CDT [facility] Specimen Type Cap Fingerstick 2023 4:46 PM CDT [facility] Blood BLOOD SPECIMEN / Unknown 10/20/2023 5:12 PM CDT 10/24/2023 4:46 PM CDT Jayme Rodriguez MD LAB - POINT OF CARE ORDERABLES Performing Organization Address [facility] Co de Phone Number [facility] [address] [place] [address] * (ABNORMAL) RENAL FUNCTION PANEL (10/20/2023 3:34 PM CDT) Glucose 138(H) 70 - 105 mg/dL 10/20/2023 4:07 PM CDT [facility] Sodium 153(H) 136 - 145 mmol/L 10/20/2023 4:07 PM T [facility] Potassium 3.0(L) 3.5 - 5.1 mmol/L 10/20/2023 4:07 PM T [facility] Chloride 119(H) 98 - 107 mmol/L 10/20/2023 4:07 PM T [facility] CO2 27 22 - 29 mmol/L 10/20/2023 4:07 PM T [facility] Calcium 8.7 8.4 - 10.4 mg/dL 10/20/2023 4:07 PM [facility] Anion Gap 7 6 - 16 mmol/L 10/20/2023 4:07 PM T [facility] BUN 42(H) 7 - 26 mg/dL 10/20/2023 4:07 PM [facility] Creatinine 1.66(H) 0.72 - 1.25 mg/dL 10/20/2023 4:07 PM CDT [facility] Albumin 2.5(L) 3.4 - 5.0 gm/dL 10/20/2023 4:07 PM CDT [facility] Phosphorus 2.4 2.3 - 4.7 mg/dL 10/20/2023 4:07 PM CDT [facility] eGFR by CKD-EPI 43(L) >=90 mL/min/1.7 3 m2 10/20/2023 4:07 PM CDT [facility] Blood BLOOD SPECIMEN / Unknown Lab Venipuncture / Unknown 10/20/2023 3:34 PM CDT 10/20/2023 3:47 PM CDT Tamara Bauman MD LAB - CHEMISTRY RAFFYE RAISA [facility] Organization Address City/State/ZIP Co de Phone Number [facility] [address] [place] [address] * EEG (10/20/2023 12:00 PM CDT) 10/20/2023 12:0 0 PM CDT Narrative Procedure Note Yanira Macias MD - 10/20/2023 7:17 PM CDT [facility] Electroencephalogram Report PATIENT NAME: JOSÉ MIGUEL KEYS MR#: [id number] ROOM#: [id number] CSN: [id number] ADMISSION DATE: 10/12/2023 SEX: M : 1950 [...] is suggested. DICTATOR: YANIRA MACIAS M.D. MP/MODL #:[id number] cc: Yanira Macias M.D. Yanira Macias MD NEUROLOGY ORDERABLES Performing Organization Address [facility] de Phone Number [facility] * (ABNORMAL) GLUCOSE - POINT OF CARE (10/20/2023 11:53 AM CDT) Glucose WB/POC 141(H) 70 - 106 mg/dL 10/20/2023 12:28 PM CDT [facility] Specimen Type Cap Fingerstick 2023 12:28 PM CDT [facility] Blood BLOOD SPECIMEN / Unknown 10/20/2023 11:53 AM CDT 10/20/2023 12:28 PM CDT Jayme Rodriguez MD LAB - POINT OF CARE ORDERABLES Performing Organization Address [facility] de Phone Number [facility] [address] [place] [address] * (ABNORMAL) GLUCOSE - POINT OF CARE (10/20/2023 6:55 AM CDT) Glucose WB/POC 136(H) 70 - 106 mg/dL 10/20/2023 7:35 AM CDT [facility] Specimen Type Cap Fingerstick 2023 7:35 AM CDT [facility] Blood BLOOD SPECIMEN / Unknown 10/20/2023 6:55 AM CDT 10/20/2023 7:35 AM CDT Jayme Rodriguez MD LAB - POINT OF CARE ORDERABLES Performing Organization Address [facility] Co de Phone Number [facility] [address] [place] [address] * XR CHEST 1VW PORTABLE (10/20/2023 5:03 [...] 41 - 74 % 10/20/2023 6:21 AM [facility] Lymphocyte % 10(L) 17 - 47 % 10/20/2023 6:21 AM [facility] Monocyte % 10 3 - 11 % 10/20/2023 6:21 AM [facility] Eosinophil % 1 0 - 7 % 10/20/2023 6:21 AM [facility] Neutrophil Absolute 11.38(H) 1.60 - 7.50 x10E9/L 10/20/2023 6:21 AM [facility] Lymphocyte Absolute 1.44 1.00 - 4.40 x10E9/L 10/20/2023 6:21 AM [facility] Monocyte Absolute 1.44(H) 0.15 - 1.00 x10E9/L 10/20/2023 6:21 AM [facility] Eosinophil Absolute 0.14 0.00 - 0.60 x10E9/L 10/20/2023 6:21 AM [facility] RBC Morphology REVIEWED 10/20/2023 6:21 AM [facility] Blood BLOOD SPECIMEN / Unknown Lab Venipuncture / Unknown 10/20/2023 3:53 AM CDT 10/20/2023 4:06 AM CDT Tamara Bauman MD LAB - HEMATOLOGY ORD ERABLES [facility] [address] [place] [address] * (ABNORMAL) CBC W AUTO DIFFERENTIAL (10/20/2023 3:53 AM CDT) WBC 14.4(H) 4.0 - 10.7 x10E9/L 10/20/2023 6:22 AM CDT [facility] RBC Count 4.20(L) 4.30 - 5.80 x10E12/L 10/20/2023 6:22 AM CDT [facility] Hemoglobin 12.8(L) 13.3 - 17.5 g/dL 10/20/2023 6:22 AM CDT [facility] Hematocrit 40.2 38.7 - 51.1 % 10/20/2023 6:22 AM CDT [facility] MCV 95.7 80.0 - 98.0 fL 10/20/2023 6:22 AM CDT [facility] MCH 30.5 26.7 - 33.6 pg 10/20/2023 6:22 AM CDT [facility] MCHC 31.8 31.7 - 36.3 g/dL 10/20/2023 6:22 AM CDT [facility] RDW-CV 16.9(H) 11.3 - 14.8 % 10/20/2023 6:22 AM CDT [facility] Platelet Count 176 150 - 420 x10E9/L 10/20/2023 6:22 AM CDT [facility] MPV 13.1(H) 7.8 - 11.4 fL 10/20/2023 6:22 AM CDT [facility] NRBC 2.2(H) <=0.0 /100 WBC 10/20/2023 6:22 AM CDT [facility] Blood BLOOD SPECIMEN / Unknown Lab Venipuncture / Unknown 10/20/2023 3:53 AM CDT 10/20/2023 4:06 AM CDT Tamraa Bauman MD LAB - HEMATOLOGY ORD ERABLES [facility] [address] [place] [address] * MAGNESIUM BLOOD (10/20/2023 3:53 AM CDT) Pathologist [facility] Magnesium 2.4 1.6 - 2.6 mg/dL 10/20/2023 4:34 AM [facility] Blood BLOOD SPECIMEN / Unknown Lab Venipuncture / Unknown 10/20/2023 3:53 AM CDT 10/20/2023 4:06 AM CDT Tamara Bauman MD LAB - CHEMISTRY ROYCE KLINE [facility] Organization Address City/State/ZIP Co de Phone Number [facility] [address] [place] [address] * (ABNORMAL) RENAL FUNCTION PANEL (10/20/2023 3:53 AM CDT) Pathologist [facility] Glucose 138(H) 70 - 105 mg/dL 10/20/2023 4:34 AM [facility] Sodium 154(H) 136 - 145 mmol/L 10/20/2023 4:34 AM [facility] Potassium 2.9(L) 3.5 - 5.1 mmol/L 10/20/2023 4:34 AM [facility] Chloride 120(H) 98 - 107 mmol/L 10/20/2023 4:34 AM [facility] CO2 27 22 - 29 mmol/L 10/20/2023 4:34 AM [facility] Calcium 9.2 8.4 - 10.4 mg/dL 10/20/2023 4:34 AM [facility] Anion Gap 7 6 - 16 mmol/L 10/20/2023 4:34 AM [facility] BUN 49(H) 7 - 26 mg/dL 10/20/2023 4:34 AM [facility] Creatinine 1.67(H) 0.72 - 1.25 mg/dL 10/20/2023 4:34 AM [facility] Albumin 2.5(L) 3.4 - 5.0 gm/dL 10/20/2023 4:34 AM [facility] Phosphorus 1.7(L) 2.3 - 4.7 mg/dL 10/20/2023 4:34 AM CDT [facility] eGFR by CKD-EPI 43(L) >=90 mL/min/1.7 3 m2 10/20/2023 4:34 AM CDT [facility] Blood BLOOD SPECIMEN / Unknown Lab Venipuncture / Unknown 10/20/2023 3:53 AM CDT 10/20/2023 4:06 AM CDT Tamara Bauman MD LAB - CHEMISTRY ROYCE KLINE Performing Organization Address City/[facility]/ZIP Co de Phone Number [facility] [address] [place] [address] * (ABNORMAL) GLUCOSE - POINT OF CARE (10/19/2023 8:13 PM CDT) Glucose WB/POC 150(H) 70 - 106 mg/dL 10/19/2023 8:19 PM CDT [facility] Specimen Type Cap Fingerstick 2023 8:19 PM CDT [facility] Blood BLOOD SPECIMEN / Unknown 10/19/2023 8:13 PM CDT 10/19/2023 8:19 PM CDT Jayme Rodriguez MD LAB - POINT OF CARE ORDERABLES Performing Organization Address [facility]/ZIP Co de Phone Number [facility] [address] [place] [address] * (ABNORMAL) GLUCOSE - POINT OF CARE (10/19/2023 5:17 PM CDT) Glucose WB/POC 142(H) 70 - 106 mg/dL 10/19/2023 5:27 PM CDT [facility] Specimen Type Cap Fingerstick 2023 5:27 PM CDT [facility] Blood BLOOD SPECIMEN / Unknown 10/19/2023 5:17 PM CDT 10/19/2023 5:27 PM CDT Jayme Rodriguez MD LAB - POINT OF CARE ORDERABLES [facility] [address] [place] [address] * (ABNORMAL) SODIUM BLOOD (10/19/2023 4:39 PM CDT) Sodium 155(H) 136 - 145 mmol/L 10/19/2023 4:55 PM CDT [facility] Blood BLOOD SPECIMEN / Unknown Lab Venipuncture / Unknown 10/19/2023 4:39 PM CDT 10/19/2023 4:42 PM CDT Jayme Rodriguez MD LAB - CHEMISTRY ORDE RAISA [facility] [address] [place] [address] * (ABNORMAL) GLUCOSE - POINT OF CARE (10/19/2023 11:57 AM CDT) Glucose WB/POC 161(H) 70 - 106 mg/dL 10/19/2023 5:19 PM CDT [facility] Specimen Type Cap Fingerstick 2023 5:19 PM CDT [facility] Blood BLOOD SPECIMEN / Unknown 10/19/2023 11:57 AM CDT 10/19/2023 5:19 PM CDT Jayme Rodriguez MD LAB - POINT OF CARE ORDERABLES [facility] [address] [place] [address] * (ABNORMAL) GLUCOSE - POINT OF CARE (10/19/2023 6:38 AM CDT) Glucose WB/POC 128(H) 70 - 106 mg/dL 10/24/2023 4:46 PM CDT [facility] Specimen Type Cap Fingerstick 2023 4:46 PM CDT [facility] Blood BLOOD SPECIMEN / Unknown 10/19/2023 6:38 AM CDT 10/24/2023 4:46 PM CDT Jayme Rodriguez MD LAB - POINT OF CARE ORDERABLES [facility] [address] [place] [address] * (ABNORMAL) DIFFERENTIAL MANUAL (10/19/2023 3:36 AM CDT) Neutrophil % 86(H) 41 - 74 % 10/19/2023 7:15 AM CDT [facility] Lymphocyte % 4(L) 17 - 47 % 10/19/2023 7:15 AM CDT [facility] Monocyte % 4 3 - 11 % 10/19/2023 7:15 AM T [facility] Eosinophil % 2 0 - 7 % 10/[facility] Myel[facility] % 4(H) 0% % 10/19/2023 7:15 AM [facility] Neutrophil Absolute 15.48(H) 1.60 - 7.50 x10E9/L 10/19/2023 7:15 AM CDT [facility] Lymphocyte Absolute 0.72(L) 1.00 - 4.40 x10E9/L 10/19/2023 7:15 AM T [facility] Monocyte Absolute 0.72 0.15 - 1.00 x10E9/L 10/19/2023 7:15 AM T [facility] Eosinophil Absolute 0.36 0.00 - 0.60 x10E9/L 10/19/2023 7:15 AM [facility] RBC Morphology REVIEWED 10/19/2023 7:15 AM [facility] [facility] Macrocytosis MODERATE(A) (none) 10/19/2023 7:15 AM [facility] Platelet Morphology NORMAL 10/19/2023 7:15 AM T [facility] Blood BLOOD SPECIMEN / Unknown Lab Venipuncture / Unknown 10/19/2023 3:36 AM CDT 10/19/2023 4:23 AM CDT Omi Fortune MD LAB - HEMAT OLOGY ORDERABLES [facility] [address] [place] [address] * (ABNORMAL) CBC W AUTO DIFFERENTIAL (10/19/2023 3:36 AM CDT) WBC 18.0(H) 4.0 - 10.7 x10E9/L 10/19/2023 7:16 AM CDT [facility] RBC Count 3.99(L) 4.30 - 5.80 x10E12/L 10/19/2023 7:16 AM CDT [facility] Hemoglobin 12.3(L) 13.3 - 17.5 g/dL 10/19/2023 7:16 AM CDT [facility] Hematocrit 38.8 38.7 - 51.1 % 10/19/2023 7:16 AM CDT [facility] MCV 97.2 80.0 - 98.0 fL 10/19/2023 7:16 AM CDT [facility] MCH 30.8 26.7 - 33.6 pg 10/19/2023 7:16 AM CDT [facility] MCHC 31.7 31.7 - 36.3 g/dL 10/19/2023 7:16 AM CDT [facility] RDW-CV 16.2(H) 11.3 - 14.8 % 10/19/2023 7:16 AM CDT [facility] Platelet Count 164 150 - 420 x10E9/L 10/19/2023 7:16 AM CDT [facility] MPV 12.8(H) 7.8 - 11.4 fL 10/19/2023 7:16 AM CDT [facility] NRBC 2.3(H) <=0.0 /100 WBC 10/19/2023 7:16 AM CDT [facility] Blood BLOOD SPECIMEN / Unknown Lab Venipuncture / Unknown 10/19/2023 3:36 AM CDT 10/19/2023 4:23 AM CDT Omi Fortune MD LAB - HEMAT OLOGY ORDERABLES [facility] [address] [place] [address] * (ABNORMAL) COMPREHENSIVE METABOLIC PANEL (10/19/2023 3:36 AM [facility][NOTE 3]) [facility] Glucose 120(H) 70 - 105 mg/dL 10/19/2023 4:43 AM [facility] Sodium 156(H) 136 - 145 mmol/L 10/19/2023 4:43 AM [facility] Potassium 3.3(L) 3.5 - 5.1 mmol/L 10/19/2023 4:43 AM [facility] Chloride 120(H) 98 - 107 mmol/L 10/19/2023 4:43 AM [facility] CO2 27 22 - 29 mmol/L 10/19/2023 4:43 AM [facility] Calcium 9.3 8.4 - 10.4 mg/dL 10/19/2023 4:43 AM [facility] Anion Gap 9 6 - 16 mmol/L 10/19/2023 4:43 AM [facility] BUN 63(H) 7 - 26 mg/dL 10/19/2023 4:43 AM [facility] Creatinine 1.83(H) 0.72 - 1.25 mg/dL 10/19/2023 4:43 AM [facility] Alkaline Phosphatase 80 40 - 150 U/L 10/19/2023 4:43 AM [facility] ALT 38 0 - 55 U/L 10/19/2023 4:43 AM [facility] AST 31 5 - 34 U/L 10/19/2023 4:43 AM [facility] Protein Total 6.8 6.4 - 8.3 gm/dL 10/19/2023 4:43 AM [facility] Albumin 2.5(L) 3.4 - 5.0 gm/dL 10/19/2023 4:43 AM [facility] Bilirubin Total 0.8 0.2 - 1.2 mg/dL 10/19/2023 4:43 AM [facility] eGFR by CKD-EPI 38(L) >=90 mL/min/1.7 3 m2 10/19/2023 4:43 AM [facility] Blood BLOOD SPECIMEN / Unknown Lab Venipuncture / Unknown 10/19/2023 3:36 AM CDT 10/19/2023 4:22 AM CDT Omi Fortune MD LAB - CHEMI STRY ORDERABLES Performing Organization Address City/[facility]/ZIP Co de Phone Number [facility] [address] [place] [address] * MAGNESIUM BLOOD (10/19/2023 3:36 AM CDT) Magnesium 2.6 1.6 - 2.6 mg/dL 10/19/2023 4:43 AM CDT [facility] Blood BLOOD SPECIMEN / Unknown Lab Venipuncture / Unknown 10/19/2023 3:36 AM CDT 10/19/2023 4:22 AM CDT Omi Fortune MD LAB - CHEMI STRY ORDERABLES Performing Organization Address [facility]/ZIP Co de Phone Number [facility] [address] [place] [address] * (ABNORMAL) GLUCOSE - POINT OF CARE (10/18/2023 9:04 PM CDT) Glucose WB/POC 129(H) 70 - 106 mg/dL 10/19/2023 4:19 AM CDT [facility] Specimen Type Cap Fingerstick 2023 4:19 AM CDT [facility] Blood BLOOD SPECIMEN / Unknown 10/18/2023 9:04 PM CDT 10/19/2023 4:19 AM CDT Jayme Rodriguez MD LAB - POINT OF CARE ORDERABLES Performing Organization Address City/[facility]/ZIP Co de Phone Number [facility] [address] [place] [address] * (ABNORMAL) GLUCOSE - POINT OF CARE (10/18/2023 6:03 PM CDT) Glucose WB/POC 126(H) 70 - 106 mg/dL 10/18/2023 6:13 PM CDT [facility] Specimen Type Cap Fingerstick 2023 6:13 PM CDT [facility] Blood BLOOD SPECIMEN / Unknown 10/18/2023 6:03 PM CDT 10/18/2023 6:13 PM CDT Jayme Rodriguez MD LAB - POINT OF CARE ORDERABLES Performing Organization Address [facility]/ZIP Co de Phone Number [facility] [address] [place] [address] * (ABNORMAL) GLUCOSE - POINT OF CARE (10/18/2023 11:52 AM CDT) Glucose WB/POC 137(H) 70 - 106 mg/dL 10/18/2023 12:02 PM CDT [facility] Specimen Type Cap Fingerstick 2023 12:02 PM CDT [facility] Blood BLOOD SPECIMEN / Unknown 10/18/2023 11:52 AM CDT 10/18/2023 12:01 PM CDT Jayme Rodriguez MD LAB - POINT OF CARE ORDERABLES Performing Organization Address [facility]/ZIP Co de Phone Number [facility] [address] [place] [address] * (ABNORMAL) COMPREHENSIVE METABOLIC PANEL (10/18/2023 7:45 AM CDT) Glucose 152(H) 70 - 105 mg/dL 10/18/2023 8:06 AM CDT [facility] Sodium 153(H) 136 - 145 mmol/L 10/18/2023 8:06 AM T [facility] Potassium 3.7 3.5 - 5.1 mmol/L 10/18/2023 8:06 AM T [facility] Chloride 113(H) 98 - 107 mmol/L 10/18/2023 8:06 AM [facility] CO2 28 22 - 29 mmol/L 10/18/2023 8:06 AM T [facility] Calcium 9.5 8.4 - 10.4 mg/dL 10/18/2023 8:06 AM T [facility] Anion Gap 12 6 - 16 mmol/L 10/18/2023 8:06 AM [facility] BUN 81(H) 7 - 26 mg/dL 10/18/2023 8:06 AM [facility] Creatinine 2.34(H) 0.72 - 1.25 mg/dL 10/18/2023 8:06 AM [facility] Alkaline Phosphatase 81 40 - 150 U/L 10/18/2023 8:06 AM [facility] ALT 45 0 - 55 U/L 10/18/2023 8:06 AM [facility] AST 32 5 - 34 U/L 10/18/2023 8:06 AM [facility] Protein Total 6.8 6.4 - 8.3 gm/dL 10/18/2023 8:06 AM [facility] Albumin 2.5(L) 3.4 - 5.0 gm/dL 10/18/2023 8:06 AM [facility] Bilirubin Total 1.1 0.2 - 1.2 mg/dL 10/18/2023 8:06 AM [facility] eGFR by CKD-EPI 28(L) >=90 mL/min/1.7 3 m2 10/18/2023 8:06 AM [facility] Blood BLOOD SPECIMEN / Unknown Lab Venipuncture / Unknown 10/18/2023 7:45 AM CDT 10/18/2023 7:47 AM CDT Omi Fortune MD LAB - CHEMI STRY ORDERABLES [facility] [address] [place] [address] * MAGNESIUM BLOOD (10/18/2023 7:45 AM CDT) Magnesium 2.6 1.6 - 2.6 mg/dL 10/18/2023 8:06 AM T [facility] Blood BLOOD SPECIMEN / Unknown Lab Venipuncture / Unknown 10/18/2023 7:45 AM CDT 10/18/2023 7:47 AM CDT Braga Ataddy Fortune MD LAB - CHEMI STRY ORDERABLES [facility] [address] [place] [id number] * (ABNORMAL) BLOOD GASES ART + COOX PANEL (10/17/2023 9:17 PM CDT) pH Arterial 7.39 7.35 - 7.45 pH 10/17/2023 9:23 PM CDT [facility] pCO2 Arterial 57(H) 35 - 45 mmHg 9:23 PM CDT [facility] pO2 Arterial 135(H) 80 - 100 mmHg 10/17/2023 9:23 PM CDT [facility] HCO3 Arterial 34.5(H) 22.0 - 26.0 mmol/L 10/17/2023 9:23 PM CDT [facility] BE Arterial 7.8(H) -2.0 - 2.0 mmol/L 10/17/2023 9:23 PM CDT [facility] Oxyhemoglobin Arterial 97.5 % 10/17/2023 9:23 PM CDT [facility] Dexoyhemoglobin (HHB) % <1.0 % 10/17/2023 9:23 PM CDT [facility] O2 Content Arterial 16.8 Interpret within clinical context ml/dL 10/17/2023 9:23 PM CDT [facility] O2 Saturation Arterial 100 90 - 100 % 10/17/2023 9:23 PM CDT [facility] Methemoglobin <0.8 0.0 - 2.0 % 10/17/2023 9:23 PM CDT [facility] Carboxyhemoglobin 2.0 0.0 - 2.0 % 2023 9:23 PM CDT [facility] Hemoglobin by COOX 12.1 12.0 - 17.6 g/dL 10/17/2023 9:23 PM CDT [facility] Malik's Test Positive 10/17/2023 9:23 PM CDT [facility] Sample Site Right RA 10/17/2023 9:23 PM CDT [facility] O2 Device Cannula 10/17/2023 9:23 PM CDT [facility] Liter Flow (LPM) 3 10/17/19 9:23 PM CDT [facility] P/F Ratio 10/17/2023 9:23 PM CDT [facility] Comment:C^Incalculable Blood, arterial ARTERIAL BLOOD SPECIMEN / Unknown 10/17/2023 9:17 PM CDT 10/17/2023 9:17 PM CDT Omi Fortune MD LAB - BLOOD GASES ORDERABLES [facility] [address] [phone] * (ABNORMAL) GLUCOSE - POINT OF CARE (10/17/2023 9:05 PM CDT) Glucose WB/POC 108(H) 70 - 106 mg/dL 10/17/2023 9:15 PM CDT [facility] Specimen Type Cap Fingerstick 2023 9:15 PM T [facility] Blood BLOOD SPECIMEN / Unknown 10/17/2023 9:05 PM CDT 10/17/2023 9:15 PM CDT Omi Fortune MD LAB - POINT OF CARE ORDERABLES Performing Organization Address City/[facility]/ZIP Co de Phone Number [facility] [address] [place] [address] * (ABNORMAL) RENAL FUNCTION PANEL (10/17/2023 7:39 PM CDT) Glucose 106(H) 70 - 105 mg/dL 10/17/2023 7:58 PM CDT [facility] Sodium 149(H) 136 - 145 mmol/L 10/17/2023 7:58 PM CDT [facility] Potassium 3.9 3.5 - 5.1 mmol/L 10/17/2023 7:58 PM CDT [facility] Chloride 111(H) 98 - 107 mmol/L 10/17/2023 7:58 PM CDT [facility] CO2 31(H) 22 - 29 mmol/L 10/17/2023 7:58 PM CDT [facility] Calcium 9.5 8.4 - 10.4 mg/dL 10/17/2023 7:58 PM CDT [facility] Anion Gap 7 6 - 16 mmol/L 10/17/2023 7:58 PM CDT [facility] BUN 86(H) 7 - 26 mg/dL 10/17/2023 7:58 PM CDT [facility] Creatinine 2.43(H) 0.72 - 1.25 mg/dL 10/17/2023 7:58 PM CDT [facility] Albumin 2.6(L) 3.4 - 5.0 gm/dL 10/17/2023 7:58 PM CDT [facility] Phosphorus 2.8 2.3 - 4.7 mg/dL 10/17/2023 7:58 PM T [facility] eGFR by CKD-EPI 27(L) >=90 mL/min/1.7 3 m2 10/17/2023 7:58 PM CDT [facility] Blood BLOOD SPECIMEN / Unknown Lab Venipuncture / Unknown 10/17/2023 7:39 PM CDT 10/17/2023 7:42 PM CDT Tamara Bauman MD LAB - CHEMISTRY ROYCE KLINE Performing Organization Address City/[facility]/ZIP Co de Phone Number [facility] [address] [place] [id number] * GLUCOSE - POINT OF CARE (10/17/2023 4:13 PM CDT) [facility] Glucose WB/POC 83 70 - 106 mg/dL 10/24/2023 4:46 PM CDT [facility] Specimen Type Cap Fingerstick 2023 4:46 PM CDT [facility] Blood BLOOD SPECIMEN / Unknown 10/17/2023 4:13 PM CDT 10/24/2023 4:46 PM CDT Omi Fortune MD LAB - POINT OF CARE ORDERABLES [facility] [address] [place] [id number] [phone] * (ABNORMAL) BLOOD GASES ART + COOX [...] P/F Ratio 287 10/17/2023 2:37 PM CDT [facility] Blood, arterial ARTERIAL BLOOD SPECIMEN / Unknown 10/17/2023 2:34 PM CDT 10/17/2023 2:34 PM CDT Tiffany Fortune MD LAB - BLOOD GASES OR DERABLES [facility] [address] [facility] [employer] [address] [phone] * (ABNORMAL) RENAL FUNCTION PANEL (10/17/2023 2:21 PM CDT) Glucose 91 70 - 105 mg/dL 10/17/2023 2:44 PM [facility] Sodium 154(H) 136 - 145 mmol/L 10/17/2023 2:44 PM [facility] Potassium 4.5 3.5 - 5.1 mmol/L 10/17/2023 2:44 PM [facility] Chloride 111(H) 98 - 107 mmol/L 10/17/2023 2:44 PM [facility] CO2 31(H) 22 - 29 mmol/L 10/17/2023 2:44 PM [facility] Calcium 9.3 8.4 - 10.4 mg/dL 10/17/2023 2:44 PM [facility] Anion Gap 12 6 - 16 mmol/L 10/17/2023 2:44 PM [facility] BUN 92(H) 7 - 26 mg/dL 10/17/2023 2:44 PM [facility] Creatinine 2.34(H) 0.72 - 1.25 mg/dL 10/17/2023 2:44 PM [facility] Albumin 2.6(L) 3.4 - 5.0 gm/dL 10/17/2023 2:44 PM [facility] Phosphorus 3.4 2.3 - 4.7 mg/dL 10/17/2023 2:44 PM [facility] eGFR by CKD-EPI 28(L) >=90 mL/min/1.7 3 m2 10/17/2023 2:44 PM CDT [facility] Blood BLOOD SPECIMEN / Unknown Lab Venipuncture / Unknown 10/17/2023 2:21 PM CDT 10/17/2023 2:24 PM CDT Tamara Bauman MD LAB - CHEMISTRY ROYCE KLINE [facility] Organization Address City/State/ZIP Co de Phone Number [facility] [address] [place] [address] * XR ABDOMEN KUB (10/17/2023 12:59 PM [...] - 72 umol/L 10/17/2023 12:53 PM CDT [facility] Blood BLOOD SPECIMEN / Unknown Lab Venipuncture / Unknown 10/17/2023 12:33 PM CDT 10/17/2023 12:44 PM CDT Omi Fortune MD LAB - CHEMI STRY ORDERABLES [facility] [address] [facility] [place] [address] * XR CHEST 1VW PORTABLE (10/17/2023 11:34 [...] 8.84(H) <=0.50 mg/dL 10/17/2023 11:57 AM CDT [facility] Blood BLOOD SPECIMEN / Unknown Lab Venipuncture / Unknown 10/17/2023 11:23 AM CDT 10/17/2023 11:47 AM CDT Aneta Campbell DO LAB - CHEMISTRY O RDERABLES [facility] [address] [place] [address] * (ABNORMAL) B-TYPE NATRIURETIC PEPTIDE (10/17/2023 11:23 AM CDT) BNP 854(H) <=100 pg/mL 10/17/2023 11:47 AM CDT [facility] Blood BLOOD SPECIMEN / Unknown Lab Venipuncture / Unknown 10/17/2023 11:23 AM CDT 10/17/2023 11:25 AM CDT Omi Fortune MD LAB - CHEMI STRY ORDERABLES Performing Organization Address City/[facility]/ZIP Co de Phone Number [facility] [address] [place] [address] * GLUCOSE - POINT OF CARE (10/17/2023 10:48 AM CDT) Glucose WB/POC 100 70 - 106 mg/dL 10/17/2023 10:57 AM CDT [facility] Specimen Type Cap Fingerstick 2023 10:57 AM CDT [facility] Blood BLOOD SPECIMEN / Unknown 10/17/2023 10:48 AM CDT 10/17/2023 10:57 AM CDT Omi Fortune MD LAB - POINT OF CARE ORDERABLES Performing Organization Address [facility]/ZIP Co de Phone Number [facility] [address] [place] [address] * CT HEAD WO CONTRAST (10/17/2023 10:37 [...] - 106 mg/dL 10/17/2023 9:47 AM CDT [facility] Specimen Type Cap Fingerstick 2023 9:47 AM CDT [facility] Blood BLOOD SPECIMEN / Unknown 10/17/2023 9:41 AM CDT 10/17/2023 9:47 AM CDT Omi Fortune MD LAB - POINT OF CARE ORDERABLES [facility] [address] [place] [address] * GLUCOSE - POINT OF CARE (10/17/2023 8:35 AM CDT) [facility] Glucose WB/POC 102 70 - 106 mg/dL 10/17/2023 8:41 AM CDT [facility] Specimen Type Cap Fingerstick 2023 8:41 AM CDT [facility] Blood BLOOD SPECIMEN / Unknown 10/17/2023 8:35 AM CDT 10/17/2023 8:41 AM CDT Omi Fortune MD LAB - POINT OF CARE ORDERABLES [facility] [address] [place] [address] * (ABNORMAL) BLOOD GASES ART + COOX PANEL (10/17/2023 8:11 AM CDT) [facility] pH Arterial 7.32(L) 7.35 - 7.45 pH [...] - 2.0 % 10/17/2023 8:13 AM CDT [facility] Carboxyhemoglobin 1.4 0.0 - 2.0 % 2023 8:13 AM CDT [facility] Hemoglobin by COOX 12.5 12.0 - 17.6 g/dL 10/17/2023 8:13 AM CDT [facility] Malik's Test Positive 10/17/2023 8:13 AM CDT [facility] Sample Site Left RA 10/17/2023 8:13 AM CDT [facility] Mode Bipap 10/17/2023 8:13 AM CDT [facility] FI O2 40.0 % 10/17/2023 8:13 AM CDT [facility] BIPAP Insp Pressure (cmH2O) 30 10/17/2023 8:13 AM CDT [facility] BIPAP Exp Pressure (cmH2O) 14 10/17/2023 8:13 AM CDT [facility] P/F Ratio 365 10/17/2023 8:13 AM CDT [facility] Blood, arterial ARTERIAL BLOOD SPECIMEN / Unknown 10/17/2023 8:11 AM CDT 10/17/2023 8:11 AM CDT Aaron Hook DO LAB - BLOOD GASES OR DERABLES Performing Organization Address City/State/[facility] Co de Phone Number [facility] [address] [phone] * (ABNORMAL) GLUCOSE - POINT OF CARE (10/17/2023 7:35 AM CDT) Pathologist [facility] Glucose WB/POC 108(H) 70 - 106 mg/dL 10/17/2023 7:41 AM CDT [facility] Specimen Type Cap Fingerstick 2023 7:41 AM CDT [facility] Blood BLOOD SPECIMEN / Unknown 10/17/2023 7:35 AM CDT 10/17/2023 7:41 AM CDT Omi Fortune MD LAB - POINT OF CARE ORDERABLES [facility] [address] [place] [address] * GLUCOSE - POINT OF CARE (10/17/2023 6:29 AM CDT) Glucose WB/POC 76 70 - 106 mg/dL 10/17/2023 8:01 PM CDT [facility] Specimen Type Cap Fingerstick 2023 8:01 PM CDT [facility] Blood BLOOD SPECIMEN / Unknown 10/17/2023 6:29 AM CDT 10/17/2023 8:01 PM CDT Omi Fortune MD LAB - POINT OF CARE ORDERABLES Performing Organization Address [facility]/ZIP Co de Phone Number [facility] [address] [place] [address] * (ABNORMAL) GLUCOSE - POINT OF CARE (10/17/2023 5:35 AM CDT) Glucose WB/POC 124(H) 70 - 106 mg/dL 10/17/2023 5:44 AM CDT [facility] Specimen Type Cap Fingerstick 2023 5:44 AM CDT [facility] Blood BLOOD SPECIMEN / Unknown 10/17/2023 5:35 AM CDT 10/17/2023 5:44 AM CDT Omi Fortune MD LAB - POINT OF CARE ORDERABLES [facility] [address] [place] [address] * GLUCOSE - POINT OF CARE (10/17/2023 4:49 AM CDT) Glucose WB/POC 91 70 - 106 mg/dL 10/17/2023 5:23 AM CDT [facility] Specimen Type Cap Fingerstick 2023 5:23 AM CDT [facility] Blood BLOOD SPECIMEN / Unknown 10/17/2023 4:49 AM CDT 10/17/2023 5:23 AM CDT Omi Christopher Fortune MD LAB - POINT OF CARE ORDERABLES [facility] [address] [place] [address] * (ABNORMAL) BLOOD GASES ART + COOX [...] Site Left RA 10/17/2023 4:24 AM CDT [facility] Mode Bipap 10/17/2023 4:24 AM CDT [facility] FI O2 40.0 % 10/17/2023 4:24 AM CDT [facility] Mechanical Respiratory Rate (bpm) 12 10/17/2023 4:24 AM CDT [facility] BIPAP Insp Pressure (cmH2O) 30 10/17/2023 4:24 AM CDT [facility] BIPAP Exp Pressure (cmH2O) 14 10/17/2023 4:24 AM CDT [facility] P/F Ratio 275 10/17/2023 4:24 AM T [facility] Blood, arterial ARTERIAL BLOOD SPECIMEN / Unknown 10/17/2023 4:20 AM CDT 10/17/2023 4:20 AM CDT Aaron Hook DO LAB - BLOOD GASES OR DERABLES Performing Organization Address [facility]/ZIP Co de Phone Number [facility] [address] [phone] * (ABNORMAL) B-TYPE NATRIURETIC PEPTIDE (10/17/2023 3:58 AM CDT) BNP 901(H) <=100 pg/mL 10/17/2023 9:48 AM CDT [facility] Blood BLOOD SPECIMEN / Unknown Lab Venipuncture / Unknown 10/17/2023 3:58 AM CDT 10/17/2023 3:58 AM CDT Tiffany Fortune MD LAB - CHEMISTRY ROYCE KLINE [facility] [address] [place] [address] * (ABNORMAL) CBC W AUTO DIFFERENTIAL (10/17/2023 3:58 AM CDT) WBC 16.7(H) 4.0 - 10.7 x10E9/L 10/17/2023 10:22 AM CDT [facility] RBC Count 3.84(L) 4.30 - 5.80 x10E12/L 10/17/2023 10:22 AM [facility] Hemoglobin 11.7(L) 13.3 - 17.5 g/dL 10/17/2023 10:22 AM [facility] Hematocrit 38.0(L) 38.7 - 51.1 % 10/17/2023 10:22 AM [facility] MCV 99.0(H) 80.0 - 98.0 fL 10/17/2023 10:22 AM [facility] MCH 30.5 26.7 - 33.6 pg 10/17/2023 10:22 AM [facility] MCHC 30.8(L) 31.7 - 36.3 g/dL 10/17/2023 10:22 AM [facility] RDW-CV 16.5(H) 11.3 - 14.8 % 10/17/2023 10:22 AM [facility] Platelet Count 133(L) 150 - 420 x10E9/L 10/17/2023 10:22 AM [facility] MPV 12.8(H) 7.8 - 11.4 fL 10/17/2023 10:22 AM [facility] NRBC 2.9(H) <=0.0 /100 WBC 10/17/2023 10:22 AM [facility] Blood BLOOD SPECIMEN / Unknown Lab Venipuncture / Unknown 10/17/2023 3:58 AM CDT 10/17/2023 3:58 AM CDT Omi Fortune MD LAB - HEMAT OLOGY ORDERABLES [facility] [address] [place] [address] * (ABNORMAL) COMPREHENSIVE METABOLIC PANEL (10/17/2023 3:36 AM CDT) [facility] Glucose 107(H) 70 - 105 mg/dL 10/17/2023 3:58 AM CDT [facility] Sodium 146(H) 136 - 145 mmol/L 10/17/2023 3:58 AM [facility] Potassium 5.6(H) 3.5 - 5.1 mmol/L 10/17/2023 3:58 AM [facility] Chloride 115(H) 98 - 107 mmol/L 10/17/2023 3:58 AM [facility] CO2 20(L) 22 - 29 mmol/L 10/17/2023 3:58 AM [facility] Calcium 9.0 8.4 - 10.4 mg/dL 10/17/2023 3:58 AM [facility] Anion Gap 11 6 - 16 mmol/L 10/17/2023 3:58 AM [facility] BUN 89(H) 7 - 26 mg/dL 10/17/2023 3:58 AM [facility] Creatinine 2.51(H) 0.72 - 1.25 mg/dL 10/17/2023 3:58 AM [facility] Alkaline Phosphatase 73 40 - 150 U/L 10/17/2023 3:58 AM [facility] ALT 53 0 - 55 U/L 10/17/2023 3:58 AM [facility] AST 57(H) 5 - 34 U/L 10/17/2023 3:58 AM [facility] Protein Total 7.1 6.4 - 8.3 gm/dL 10/17/2023 3:58 AM [facility] Albumin 2.5(L) 3.4 - 5.0 gm/dL 10/17/2023 3:58 AM [facility] Bilirubin Total 0.5 0.2 - 1.2 mg/dL 10/17/2023 3:58 AM [facility] eGFR by CKD-EPI 26(L) >=90 mL/min/1.7 3 m2 10/17/2023 3:58 AM [facility] Blood BLOOD SPECIMEN / Unknown Lab Venipuncture / Unknown 10/17/2023 3:36 AM CDT 10/17/2023 3:38 AM T Omi Fortune MD LAB - CHEMI STRY ORDERABLES [facility] [address] [place] [address] * (ABNORMAL) MAGNESIUM BLOOD (10/17/2023 3:36 AM CDT) Pathologist [facility] Magnesium 2.7(H) 1.6 - 2.6 mg/dL 10/17/2023 3:58 AM CDT [facility] Blood BLOOD SPECIMEN / Unknown Lab Venipuncture / Unknown 10/17/2023 3:36 AM CDT 10/17/2023 3:38 AM CDT Omi Evansaddy Fortune MD LAB - CHEMI STRY ORDERABLES [facility] [address] [place] [address] * (ABNORMAL) BLOOD GASES ART + COOX PANEL (10/17/2023 2:00 AM CDT) Pathologist [facility] pH Arterial 7.28(L) 7.35 - 7.45 pH [...] GASES OR DERABLES [facility] [address] [facility] [employer] [address] [phone] * (ABNORMAL) BLOOD GASES ART + COOX [...] 12:51 AM CDT 10/17/2023 12:51 AM CDT Aaron Hook DO LAB - BLOOD GASES OR DERABLES [facility] 300 [facility] [employer] [address] [phone] * (ABNORMAL) GLUCOSE - POINT OF CARE (10/16/2023 11:31 PM CDT) Glucose WB/POC 145(H) 70 - 106 mg/dL 10/16/2023 11:41 PM CDT [facility] Specimen Type Cap Fingerstick 2023 11:41 PM CDT [facility] Blood BLOOD SPECIMEN / Unknown 10/16/2023 11:31 PM CDT 10/16/2023 11:41 PM CDT Omi Fortune MD LAB - POINT OF CARE ORDERABLES [facility] [address] [place] [address] * XR CHEST 1VW PORTABLE (10/16/2023 10:36 [...] (CALCIUM TOTAL) (10/16/2023 10:34 PM CDT) Pathologist [facility] Glucose 127(H) 70 - 105 mg/dL 10/16/2023 10:53 PM CDT [facility] Sodium 149(H) 136 - 145 mmol/L 10/16/2023 10:53 PM CDT [facility] Potassium 4.9 3.5 - 5.1 mmol/L 10/16/2023 10:53 PM CDT [facility] Chloride 111(H) 98 - 107 mmol/L 10/16/2023 10:53 PM CDT [facility] CO2 30(H) 22 - 29 mmol/L 10/16/2023 10:53 PM CDT [facility] Calcium 9.2 8.4 - 10.4 mg/dL 10/16/2023 10:53 PM CDT [facility] Anion Gap 8 6 - 16 mmol/L 10/16/2023 10:53 PM CDT [facility] BUN 93(H) 7 - 26 mg/dL 10/16/2023 10:53 PM CDT [facility] Creatinine 2.65(H) 0.72 - 1.25 mg/dL 10/16/2023 10:53 PM CDT [facility] eGFR by CKD-EPI 25(L) >=90 mL/min/1.7 3 m2 10/16/2023 10:53 PM CDT [facility] Blood BLOOD SPECIMEN / Unknown Venipuncture / Unknown 10/16/2023 10:34 PM CDT 10/16/2023 10:38 PM CDT Aaron Hook DO LAB - CHEMISTRY ROYCE KLINE [facility] [address] [place] [address] [phone] * (ABNORMAL) BLOOD GASES ART + COOX [...] - 2.0 mmol/L 10/16/2023 10:29 PM CDT [facility] Oxyhemoglobin Arterial 94.8 % 10/16/2023 10:29 PM CDT [facility] Dexoyhemoglobin (HHB) % 2.8 % 10/16/2023 10:29 PM CDT [facility] O2 Content Arterial 16.6 Interpret within clinical context ml/dL 10/16/2023 10:29 PM CDT [facility] O2 Saturation Arterial 97 90 - 100 % 10/16/2023 10:29 PM CDT [facility] Methemoglobin <0.8 0.0 - 2.0 % 10/16/2023 10:29 PM CDT [facility] Carboxyhemoglobin 2.0 0.0 - 2.0 % 2023 10:29 PM CDT [facility] Hemoglobin by COOX 12.4 12.0 - 17.6 g/dL 10/16/2023 10:29 PM CDT [facility] Malik's Test Positive 10/16/2023 10:29 PM CDT [facility] Sample Site Left RA 10/16/2023 10:29 PM CDT [facility] O2 Device Cannula 10/16/2023 10:29 PM CDT [facility] Liter Flow (LPM) 2 10/16/19 10:29 PM CDT [facility] P/F Ratio 10/16/2023 10:29 PM CDT [facility] Comment:C^Incalculable Blood, arterial ARTERIAL BLOOD SPECIMEN / Unknown 10/16/2023 10:27 PM CDT 10/16/2023 10:27 PM CDT Aaron Hook DO LAB - BLOOD GASES OR DERABLES [facility] [address] [phone] * (ABNORMAL) GLUCOSE - POINT OF CARE (10/16/2023 10:21 PM CDT) Glucose WB/POC 132(H) 70 - 106 mg/dL 10/16/2023 10:32 PM CDT [facility] Specimen Type Cap Fingerstick 2023 10:32 PM CDT [facility] Blood BLOOD SPECIMEN / Unknown 10/16/2023 10:21 PM CDT 10/16/2023 10:32 PM CDT Omi Fortune MD LAB - POINT OF CARE ORDERABLES Performing Organization Address [facility]/ZIP Co de Phone Number [facility] [address] [place] [address] * (ABNORMAL) GLUCOSE - POINT OF CARE (10/16/2023 9:54 PM CDT) Glucose WB/POC 141(H) 70 - 106 mg/dL 10/18/2023 12:09 PM CDT [facility] Specimen Type Cap Fingerstick 2023 12:09 PM CDT [facility] Blood BLOOD SPECIMEN / Unknown 10/16/2023 9:54 PM CDT 10/18/2023 12:09 PM CDT Omi Fortune MD LAB - POINT OF CARE ORDERABLES Performing Organization Address [facility]/ZIP Co de Phone Number [facility] [address] [place] [address] * (ABNORMAL) GLUCOSE - POINT OF CARE (10/16/2023 6:02 PM CDT) Glucose WB/POC 128(H) 70 - 106 mg/dL 10/16/2023 6:08 PM CDT [facility] Specimen Type Cap Fingerstick 2023 6:08 PM CDT [facility] Blood BLOOD SPECIMEN / Unknown 10/16/2023 6:02 PM CDT 10/16/2023 6:08 PM CDT Omi Fortune MD LAB - POINT OF CARE ORDERABLES Performing Organization Address City/[facility]/ZIP Co de Phone Number [facility] [address] [place] [address] * (ABNORMAL) GLUCOSE - POINT OF CARE (10/16/2023 12:43 PM CDT) Glucose WB/POC 136(H) 70 - 106 mg/dL 10/16/2023 1:06 PM CDT [facility] Specimen Type Cap Fingerstick 2023 1:06 PM CDT [facility] Blood BLOOD SPECIMEN / Unknown 10/16/2023 12:43 PM CDT 10/16/2023 1:06 PM CDT Omi Fortune MD LAB - POINT OF CARE ORDERABLES Performing Organization Address City/[facility]/ZIP Co de Phone Number [facility] [address] [place] [address] * XR CHEST 1VW PORTABLE (10/16/2023 11:35 [...] - 106 mg/dL 10/16/2023 7:03 AM CDT [facility] Specimen Type Cap Fingerstick 2023 7:03 AM CDT [facility] Blood BLOOD SPECIMEN / Unknown 10/16/2023 6:51 AM CDT 10/16/2023 7:03 AM CDT Omi Fortune MD LAB - POINT OF CARE ORDERABLES [facility] [address] [place] [address] * (ABNORMAL) DIFFERENTIAL MANUAL (10/16/2023 3:55 AM CDT) Neutrophil % 88(H) 41 - 74 % 10/16/2023 7:42 AM CDT [facility] Lymphocyte % 3(L) 17 - 47 % 10/16/2023 7:42 AM CDT [facility] Monocyte % 5 3 - 11 % 10/16/2023 7:42 AM CDT [facility] Metamyelocyte % 1(H) 0% % 7:42 AM CDT [facility] Myelocyte % 3(H) 0% % 10/16/2023 7:42 AM CDT [facility] Neutrophil Absolute 16.46(H) 1.60 - 7.50 x10E9/L 10/16/2023 7:42 AM CDT [facility] Lymphocyte Absolute 0.56(L) 1.00 - 4.40 x10E9/L 10/16/2023 7:42 AM CDT [facility] Monocyte Absolute 0.94 0.15 - 1.00 x10E9/L 10/16/2023 7:42 AM CDT [facility] RBC Morphology NORMAL 10/16/2023 7:42 AM CDT [facility] Blood BLOOD SPECIMEN / Unknown Lab Venipuncture / Unknown 10/16/2023 3:55 AM CDT 10/16/2023 4:08 AM CDT Omi Fortune MD LAB - HEMAT OLOGY ORDERABLES [facility] [address] [place] [address] * (ABNORMAL) CBC W AUTO DIFFERENTIAL (10/16/2023 3:55 AM CDT) WBC 18.7(H) 4.0 - 10.7 x10E9/L 10/16/2023 7:43 AM CDT [facility] RBC Count 3.74(L) 4.30 - 5.80 x10E12/L 10/16/2023 7:43 AM CDT [facility] Hemoglobin 11.7(L) 13.3 - 17.5 g/dL 10/16/2023 7:[facility] Hematocrit 36.9(L) 38.7 - 51.1 % 10/16/2023 7:43 AM CDT [facility] MCV 98.7(H) 80.0 - 98.0 fL 10/16/2023 7:43 AM CDT [facility] MCH 31.3 26.7 - 33.6 pg 10/16/2023 7:43 AM CDT [facility] MCHC 31.7 31.7 - 36.3 g/dL 10/16/2023 7:43 AM [facility] RDW-CV 16.0(H) 11.3 - 14.8 % 10/16/2023 7:43 AM [facility] Platelet Count 128(L) 150 - 420 x10E9/L 10/16/2023 7:43 AM [facility] MPV 12.8(H) 7.8 - 11.4 fL 10/16/2023 7:43 AM [facility] NRBC 1.8(H) <=0.0 /100 WBC 10/16/2023 7:43 AM [facility] Blood BLOOD SPECIMEN / Unknown Lab Venipuncture / Unknown 10/16/2023 3:55 AM CDT 10/16/2023 4:08 AM CDT Omi Fortune MD LAB - HEMAT OLOGY ORDERABLES [facility] [address] [place] [address] * (ABNORMAL) COMPREHENSIVE METABOLIC PANEL (10/16/2023 3:55 AM CDT) Glucose 112(H) 70 - 105 mg/dL 10/16/2023 4:38 AM CDT [facility] Sodium 145 136 - 145 mmol/L 10/16/2023 4:38 AM CDT [facility] Potassium 4.8 3.5 - 5.1 mmol/L 10/16/2023 4:38 AM [facility] Chloride 111(H) 98 - 107 mmol/L 10/16/2023 4:38 AM [facility] CO2 24 22 - 29 mmol/L 10/16/2023 4:38 AM [facility] Calcium 9.0 8.4 - 10.4 mg/dL 10/16/2023 4:38 AM [facility] Anion Gap 10 6 - 16 mmol/L 10/16/2023 4:38 AM [facility] BUN 88(H) 7 - 26 mg/dL 10/16/2023 4:38 AM [facility] Creatinine 2.72(H) 0.72 - 1.25 mg/dL 10/16/2023 4:38 AM [facility] Alkaline Phosphatase 65 40 - 150 U/L 10/16/2023 4:38 AM [facility] ALT 52 0 - 55 U/L 10/16/2023 4:38 AM [facility] AST 58(H) 5 - 34 U/L 10/16/2023 4:38 AM [facility] Protein Total 7.1 6.4 - 8.3 gm/dL 10/16/2023 4:38 AM [facility] Albumin 2.5(L) 3.4 - 5.0 gm/dL 10/16/2023 4:38 AM [facility] Bilirubin Total 0.5 0.2 - 1.2 mg/dL 10/16/2023 4:38 AM [facility] eGFR by CKD-EPI 24(L) >=90 mL/min/1.7 3 m2 10/16/2023 4:38 AM [facility] Blood BLOOD SPECIMEN / Unknown Lab Venipuncture / Unknown 10/16/2023 3:55 AM T 10/16/2023 4:08 AM [facility][NOTE 3] Omi Fortune MD LAB - CHEMI STRY ORDERABLES [facility] [address] [place] [address] * MAGNESIUM BLOOD (10/16/2023 3:55 AM CDT) Magnesium 2.6 1.6 - 2.6 mg/dL 10/16/2023 4:38 AM CDT [facility] Blood BLOOD SPECIMEN / Unknown Lab Venipuncture / Unknown 10/16/2023 3:55 AM CDT 10/16/2023 4:08 AM CDT Omi Fortune MD LAB - CHEMI STRY ORDERABLES Performing Organization Address [facility]/ZIP Co de Phone Number [facility] [address] [place] [address] * (ABNORMAL) GLUCOSE - POINT OF CARE (10/15/2023 9:38 PM CDT) Glucose WB/POC 110(H) 70 - 106 mg/dL 10/16/2023 6:36 AM CDT [facility] Specimen Type Cap Fingerstick 2023 6:36 AM CDT [facility] Blood BLOOD SPECIMEN / Unknown 10/15/2023 9:38 PM CDT 10/16/2023 6:36 AM CDT Omi Fortune MD LAB - POINT OF CARE ORDERABLES Performing Organization Address City/[facility]/ZIP Co de Phone Number [facility] [address] [place] [address] * (ABNORMAL) GLUCOSE - POINT OF CARE (10/15/2023 3:58 PM CDT) Glucose WB/POC 125(H) 70 - 106 mg/dL 10/15/2023 4:33 PM CDT [facility] Specimen Type Cap Fingerstick 2023 4:33 PM CDT [facility] Blood BLOOD SPECIMEN / Unknown 10/15/2023 3:58 PM CDT 10/15/2023 4:33 PM CDT Omi Fortune MD LAB - POINT OF CARE ORDERABLES [facility] [address] [place] [id number] * XR CHEST 1VW PORTABLE (10/15/2023 2:45 [...] - 106 mg/dL 10/15/2023 12:23 PM CDT [facility] Specimen Type Arterial 10/15/2023 12:23 PM CDT [facility] Blood BLOOD SPECIMEN / Unknown 10/15/2023 12:13 PM CDT 10/15/2023 12:23 PM CDT Omi Fortune MD LAB - POINT OF CARE ORDERABLES Performing Organization Address City/[facility]/ZIP Co de Phone Number [facility] [address] [place] [address] * (ABNORMAL) GLUCOSE - POINT OF CARE (10/15/2023 8:35 AM CDT) Pathologist [facility] Glucose WB/POC 130(H) 70 - 106 mg/dL 10/15/2023 8:45 AM CDT [facility] Specimen Type Arterial 10/15/2023 8:45 AM CDT [facility] Blood BLOOD SPECIMEN / Unknown 10/15/2023 8:35 AM CDT 10/15/2023 8:45 AM CDT Omi Fortune MD LAB - POINT OF CARE ORDERABLES Performing Organization Address [facility]/ZIP Co de Phone Number [facility] [address] [place] [address] * (ABNORMAL) SLIDE SCAN HEMATOLOGY (10/15/2023 4:44 AM CDT) Pathologist [facility] RBC Morphology REVIEWED 10/15/2023 7:14 AM CDT [facility] Polychromatic Cells MODERATE(A) (none) 10/15/2023 7:14 AM CDT [facility] Blood BLOOD SPECIMEN / Unknown Lab Venipuncture / Unknown 10/15/2023 4:44 AM CDT 10/15/2023 4:48 AM CDT Omi Fortune MD LAB - HEMAT OLOGY ORDERABLES [facility] [address] [place] [address] * (ABNORMAL) PHOSPHORUS BLOOD (10/15/2023 4:44 AM CDT) Pathologist [facility] Phosphorus 5.3(H) 2.3 - 4.7 mg/dL 10/15/2023 5:14 AM CDT [facility] Blood BLOOD SPECIMEN / Unknown Lab Venipuncture / Unknown 10/15/2023 4:44 AM CDT 10/15/2023 4:47 AM CDT Kalia Berry MD LAB - CHEMISTRY ROYCE KLINE Performing Organization Address [facility]/ZIP Co de Phone Number [facility] [address] [place] [address] * (ABNORMAL) CK BLOOD (10/15/2023 4:44 AM CDT) Pathologist [facility] CK 440(H) 30 - 200 U/L 10/15/2023 5:14 AM CDT [facility] Blood BLOOD SPECIMEN / Unknown Lab Venipuncture / Unknown 10/15/2023 4:44 AM CDT 10/15/2023 4:47 AM CDT Kalia Berry MD LAB - CHEMISTRY ROYCE KLINE Performing Organization Address [facility]/ZIP Co de Phone Number [facility] [address] [place] [address] * (ABNORMAL) CBC W AUTO DIFFERENTIAL (10/15/2023 4:44 AM CDT) [facility] WBC 25.4(H) 4.0 - 10.7 x10E9/L 10/15/2023 7:14 AM CDT [facility] RBC Count 3.90(L) 4.30 - 5.80 x10E12/L 10/15/2023 7:14 AM CDT [facility] Hemoglobin 12.1(L) 13.3 - 17.5 g/dL 10/15/2023 7:14 AM CDT [facility] Hematocrit 39.1 38.7 - 51.1 % 10/15/2023 7:14 AM [facility] MCV 100.3(H) 80.0 - 98.0 fL 10/15/2023 7:14 AM [facility] MCH 31.0 26.7 - 33.6 pg 10/15/2023 7:14 AM [facility] MCHC 30.9(L) 31.7 - 36.3 g/dL 10/15/2023 7:14 AM [facility] RDW-CV 15.7(H) 11.3 - 14.8 % 10/15/2023 7:14 AM [facility] Platelet Count 113(L) 150 - 420 x10E9/L 10/15/2023 7:14 AM [facility] MPV 12.9(H) 7.8 - 11.4 fL 10/15/2023 7:14 AM [facility] Neutrophil % 85.3(H) 41.0 - 74.0 % 10/15/2023 7:14 AM [facility] Lymphocyte % 2.3(L) 17.0 - 47.0 % 10/15/2023 7:14 AM [facility] Monocyte % 7.0 3.0 - 11.0 % 10/15/2023 7:14 AM [facility] Eosinophil % 0.2 0.0 - 7.0 % 10/15/2023 7:14 AM [facility] Basophil % 0.1 0.0 - 1.6 % 10/15/2023 7:14 AM [facility] Immature Granulocytes % 5.1(H) 0.0 - 1.0 % 10/15/2023 7:14 AM [facility] Neutrophil Absolute 21.65(H) 1.60 - 7.50 x10E9/L 10/15/2023 7:14 AM [facility] Lymphocyte Absolute 0.58(L) 1.00 - 4.40 x10E9/L 10/15/2023 7:14 AM [facility] Monocyte Absolute 1.78(H) 0.15 - 1.00 x10E9/L 10/15/2023 7:14 AM [facility] Eosinophil Absolute 0.04 0.00 - 0.60 x10E9/L 10/15/2023 7:14 AM [facility] Basophil Absolute 0.02 0.00 - 0.13 x10E9/L 10/15/2023 7:14 AM [facility] NRBC 0.9(H) <=0.0 /100 WBC 10/15/2023 7:14 AM [facility] Blood BLOOD SPECIMEN / Unknown Lab Venipuncture / Unknown 10/15/2023 4:44 AM CDT 10/15/2023 4:48 AM CDT Braga Christopher Fortune MD LAB - HEMAT OLOGY ORDERABLES [facility] [address] [facility] [place] [address] * (ABNORMAL) COMPREHENSIVE METABOLIC PANEL (10/15/2023 4:44 AM CDT) Glucose 115(H) 70 - 105 mg/dL 10/15/2023 5:14 AM [facility] Sodium 141 136 - 145 mmol/L 10/15/2023 5:14 AM [facility] Potassium 5.2(H) 3.5 - 5.1 mmol/L 10/15/2023 5:14 AM [facility] Chloride 108(H) 98 - 107 mmol/L 10/15/2023 5:14 AM [facility] CO2 24 22 - 29 mmol/L 10/15/2023 5:14 AM [facility] Calcium 9.0 8.4 - 10.4 mg/dL 10/15/2023 5:14 AM [facility] Anion Gap 9 6 - 16 mmol/L 10/15/2023 5:14 AM [facility] BUN 81(H) 7 - 26 mg/dL 10/15/2023 5:14 AM [facility] Creatinine 2.95(H) 0.72 - 1.25 mg/dL 10/15/2023 5:14 AM [facility] Alkaline Phosphatase 65 40 - 150 U/L 10/15/2023 5:14 AM [facility] ALT 44 0 - 55 U/L 10/15/2023 5:14 AM CDT [facility] AST 58(H) 5 - 34 U/L 10/15/2023 5:14 AM T [facility] Protein Total 7.6 6.4 - 8.3 gm/dL 10/15/2023 5:14 AM T [facility] Albumin 2.5(L) 3.4 - 5.0 gm/dL 10/15/2023 5:14 AM T [facility] Bilirubin Total 0.5 0.2 - 1.2 mg/dL 10/15/2023 5:14 AM T [facility] eGFR by CKD-EPI 22(L) >=90 mL/min/1.7 3 m2 10/15/2023 5:14 AM T [facility] Blood BLOOD SPECIMEN / Unknown Lab Venipuncture / Unknown 10/15/2023 4:44 AM CDT 10/15/2023 4:47 AM CDT Omi Fortune MD LAB - CHEMI STRY ORDERABLES Performing Organization Address City/[facility]/ZIP Co de Phone Number [facility] [address] [place] [address] * MAGNESIUM BLOOD (10/15/2023 4:44 AM CDT) Pathologist [facility] Magnesium 2.4 1.6 - 2.6 mg/dL 10/15/2023 5:14 AM CDT [facility] Blood BLOOD SPECIMEN / Unknown Lab Venipuncture / Unknown 10/15/2023 4:44 AM CDT 10/15/2023 4:47 AM CDT Omi Fortune MD LAB - CHEMI STRY ORDERABLES [facility] [address] [place] [address] * (ABNORMAL) GLUCOSE - POINT OF CARE (10/14/2023 9:06 PM CDT) Glucose WB/POC 137(H) 70 - 106 mg/dL 10/14/2023 11:36 PM CDT [facility] Specimen Type Cap Fingerstick 2023 11:36 PM CDT [facility] Blood BLOOD SPECIMEN / Unknown 10/14/2023 9:06 PM CDT 10/14/2023 11:36 PM CDT Omi Fortune MD LAB - POINT OF CARE ORDERABLES Performing Organization Address [facility]/ZIP Co de Phone Number [facility] [address] [place] [address] * (ABNORMAL) GLUCOSE - POINT OF CARE (10/14/2023 5:55 PM CDT) Glucose WB/POC 143(H) 70 - 106 mg/dL 10/14/2023 6:05 PM CDT [facility] Specimen Type Cap Fingerstick 2023 6:05 PM CDT [facility] Blood BLOOD SPECIMEN / Unknown 10/14/2023 5:55 PM CDT 10/14/2023 6:05 PM CDT Omi Fortune MD LAB - POINT OF CARE ORDERABLES Performing Organization Address [facility] Co de Phone Number [facility] [address] [place] [address] * (ABNORMAL) GLUCOSE - POINT OF CARE (10/14/2023 11:43 AM CDT) Glucose WB/POC 141(H) 70 - 106 mg/dL 10/14/2023 11:53 AM CDT [facility] Specimen Type Cap Fingerstick 2023 11:53 AM CDT [facility] Blood BLOOD SPECIMEN / Unknown 10/14/2023 11:43 AM CDT 10/14/2023 11:53 AM CDT Omi Fortune MD LAB - POINT OF CARE ORDERABLES Performing Organization Address City/[facility]/ZIP Co de Phone Number [facility] [address] [place] [address] * (ABNORMAL) GLUCOSE - POINT OF CARE (10/14/2023 6:54 AM CDT) Pathologist [facility] Glucose WB/POC 150(H) 70 - 106 mg/dL 10/14/2023 8:47 AM CDT [facility] Specimen Type Cap Fingerstick 2023 8:47 AM CDT [facility] Blood BLOOD SPECIMEN / Unknown 10/14/2023 6:54 AM CDT 10/14/2023 8:47 AM CDT Omi Fortune MD LAB - POINT OF CARE ORDERABLES [facility] [address] [place] [address] * (ABNORMAL) SLIDE SCAN HEMATOLOGY (10/14/2023 3:37 AM CDT) [facility] RBC Morphology REVIEWED 10/14/2023 6:42 AM CDT [facility] Macrocytosis MODERATE(A) (none) 10/14/2023 6:42 AM CDT [facility] Polychromatic Cells MODERATE(A) (none) 10/14/2023 6:42 AM CDT [facility] Blood BLOOD SPECIMEN / Unknown Venipuncture / Unknown 10/14/2023 3:37 AM CDT 10/14/2023 3:47 AM CDT Omi Fortune MD LAB - HEMAT OLOGY ORDERABLES [facility] [address] [place] [address] * (ABNORMAL) CK BLOOD (10/14/2023 3:37 AM CDT) Pathologist [facility] CK 786(H) 30 - 200 U/L 10/14/2023 4:05 AM CDT [facility] Blood BLOOD SPECIMEN / Unknown Venipuncture / Unknown 10/14/2023 3:37 AM CDT 10/14/2023 3:47 AM CDT Kalia Berry MD LAB - CHEMISTRY ROYCE KLINE Performing Organization Address [facility]/ZIP Co de Phone Number [facility] [address] [place] [address] * (ABNORMAL) PHOSPHORUS BLOOD (10/14/2023 3:37 AM CDT) Phosphorus 4.8(H) 2.3 - 4.7 mg/dL 10/14/2023 4:05 AM CDT [facility] Blood BLOOD SPECIMEN / Unknown Venipuncture / Unknown 10/14/2023 3:37 AM CDT 10/14/2023 3:47 AM CDT Halina Barraza MD LAB - CHEMISTRY ROYCE KLINE Performing Organization Address [facility] Co de Phone Number [facility] [address] [place] [address] * FOLATE (10/14/2023 3:37 AM CDT) Folate 12.4 7.0 - 31.4 ng/mL 10/14/2023 4:40 AM CDT [facility] Blood BLOOD SPECIMEN / Unknown Venipuncture / Unknown 10/14/2023 3:37 AM CDT 10/14/2023 3:47 AM CDT Halina Barraza MD LAB - CHEMISTRY ROYCE KLINE Performing Organization Address [facility]/ZIP Co de Phone Number [facility] [address] [place] [address] * (ABNORMAL) IRON + TRANSFERRIN PANEL (10/14/2023 3:37 AM CDT) Iron 20(L) 50 - 175 ug/dL 10/14/2023 4:05 AM CDT [facility] Transferrin 152(L) 174 - 382 mg/dL 10/14/2023 4:05 AM CDT [facility] TIBC Calculated 190(L) 240 - 450 ug/dL 10/14/2023 4:05 AM CDT [facility] Iron Saturation % 11(L) 20 - 50 % 10/14/2023 4:05 AM CDT [facility] Blood BLOOD SPECIMEN / Unknown Venipuncture / Unknown 10/14/2023 3:37 AM CDT 10/14/2023 3:47 AM CDT Halina Barraza MD LAB - CHEMISTRY ROYCE KLINE Performing Organization Address [facility] Co de Phone Number [facility] [address] [place] [address] * VANCOMYCIN LEVEL RANDOM (10/14/2023 3:37 AM CDT) Pathologist [facility] Vancomycin Random 19.7 <=40.0 ug/mL 10/14/2023 4:05 AM CDT [facility] Blood BLOOD SPECIMEN / Unknown Venipuncture / Unknown 10/14/2023 3:37 AM CDT 10/14/2023 3:47 AM CDT Narrative [facility] - 10/14/2023 4:05 AM CDT No reference range available for random Vancomycin levels. All results interpreted by ordering physician. Nas Mcnally MD LAB - CHEMISTRY ROYCE KLINE Performing Organization Address [facility] Co de Phone Number [facility] [address] [place] [address] * (ABNORMAL) CBC W AUTO DIFFERENTIAL (10/14/2023 3:37 AM CDT) Pathologist [facility] WBC 26.3(H) 4.0 - 10.7 x10E9/L 10/14/2023 6:42 AM CDT [facility] RBC Count 3.57(L) 4.30 - 5.80 x10E12/L 10/14/2023 6:42 AM CDT [facility] Hemoglobin 11.0(L) 13.3 - 17.5 g/dL 10/14/2023 6:42 AM CDT [facility] Hematocrit 35.0(L) 38.7 - 51.1 % 10/14/2023 6:42 AM CDT [facility] MCV 98.0 80.0 - 98.0 fL 10/14/2023 6:42 AM [facility] MCH 30.8 26.7 - 33.6 pg 10/14/2023 6:42 AM [facility] MCHC 31.4(L) 31.7 - 36.3 g/dL 10/14/2023 6:42 AM [facility] RDW-CV 15.7(H) 11.3 - 14.8 % 10/14/2023 6:42 AM [facility] Platelet Count 109(L) 150 - 420 x10E9/L 10/14/2023 6:42 AM [facility] MPV 13.1(H) 7.8 - 11.4 fL 10/14/2023 6:42 AM [facility] Neutrophil % 90.4(H) 41.0 - 74.0 % 10/14/2023 6:42 AM [facility] Lymphocyte % 1.8(L) 17.0 - 47.0 % 10/14/2023 6:42 AM [facility] Monocyte % 4.7 3.0 - 11.0 % 10/14/2023 6:42 AM [facility] Eosinophil % 0.2 0.0 - 7.0 % 10/14/2023 6:42 AM [facility] Basophil % 0.2 0.0 - 1.6 % 10/14/2023 6:42 AM [facility] Immature Granulocytes % 2.7(H) 0.0 - 1.0 % 10/14/2023 6:42 AM [facility] Neutrophil Absolute 23.72(H) 1.60 - 7.50 x10E9/L 10/14/2023 6:42 AM [facility] Lymphocyte Absolute 0.48(L) 1.00 - 4.40 x10E9/L 10/14/2023 6:42 AM [facility] Monocyte Absolute 1.24(H) 0.15 - 1.00 x10E9/L 10/14/2023 6:42 AM [facility] Eosinophil Absolute 0.06 0.00 - 0.60 x10E9/L 10/14/2023 6:42 AM [facility] Basophil Absolute 0.05 0.00 - 0.13 x10E9/L 10/14/2023 6:42 AM [facility] Blood BLOOD SPECIMEN / Unknown Venipuncture / Unknown 10/14/2023 3:37 AM CDT 10/14/2023 3:47 AM CDT Bragania Fortune MD LAB - HEMAT OLOGY ORDERABLES [facility] [address] [facility] [place] [address] * (ABNORMAL) COMPREHENSIVE METABOLIC PANEL (10/14/2023 3:37 AM T) Glucose 137(H) 70 - 105 mg/dL 10/14/2023 4:05 AM [facility] Sodium 138 136 - 145 mmol/L 10/14/2023 4:05 AM [facility] Potassium 4.9 3.5 - 5.1 mmol/L 10/14/2023 4:05 AM [facility] Chloride 105 98 - 107 mmol/L 10/14/2023 4:05 AM [facility] CO2 24 22 - 29 mmol/L 10/14/2023 4:05 AM [facility] Calcium 8.8 8.4 - 10.4 mg/dL 10/14/2023 4:05 AM [facility] Anion Gap 9 6 - 16 mmol/L 10/14/2023 4:05 AM [facility] BUN 72(H) 7 - 26 mg/dL 10/14/2023 4:05 AM [facility] Creatinine 2.96(H) 0.72 - 1.25 mg/dL 10/14/2023 4:05 AM [facility] Alkaline Phosphatase 55 40 - 150 U/L 10/14/2023 4:05 AM [facility] ALT 41 0 - 55 U/L 10/14/2023 4:05 AM [facility] AST 90(H) 5 - 34 U/L 10/14/2023 4:05 AM [facility] Protein Total 7.5 6.4 - 8.3 gm/dL 10/14/2023 4:05 AM CDT [facility] Albumin 2.4(L) 3.4 - 5.0 gm/dL 10/14/2023 4:05 AM CDT [facility] Bilirubin Total 0.6 0.2 - 1.2 mg/dL 10/14/2023 4:05 AM CDT [facility] eGFR by CKD-EPI 21(L) >=90 mL/min/1.7 3 m2 10/14/2023 4:05 AM CDT [facility] Blood BLOOD SPECIMEN / Unknown Venipuncture / Unknown 10/14/2023 3:37 AM CDT 10/14/2023 3:47 AM CDT Omi Fortune MD LAB - CHEMI STRY ORDERABLES Performing Organization Address City/[facility]/ZIP Co de Phone Number [facility] [address] [place] [address] * MAGNESIUM BLOOD (10/14/2023 3:37 AM CDT) Magnesium 2.1 1.6 - 2.6 mg/dL 10/14/2023 4:05 AM CDT [facility] Blood BLOOD SPECIMEN / Unknown Venipuncture / Unknown 10/14/2023 3:37 AM CDT 10/14/2023 3:47 AM CDT Omi Fortune MD LAB - CHEMI STRY ORDERABLES [facility] [address] [place] [address] * (ABNORMAL) GLUCOSE - POINT OF CARE (10/13/2023 8:41 PM CDT) Glucose WB/POC 129(H) 70 - 106 mg/dL 10/14/2023 6:40 AM CDT [facility] Specimen Type Cap Fingerstick 2023 6:40 AM CDT [facility] Blood BLOOD SPECIMEN / Unknown 10/13/2023 8:41 PM CDT 10/14/2023 6:39 AM CDT Omi Fortune MD LAB - POINT OF CARE ORDERABLES Performing Organization Address City/[facility]/ZIP Co de Phone Number [facility] [address] [place] [address] * (ABNORMAL) GLUCOSE - POINT OF CARE (10/13/2023 4:04 PM CDT) [facility] Glucose WB/POC 160(H) 70 - 106 mg/dL 10/13/2023 4:24 PM CDT [facility] Specimen Type Cap Fingerstick 2023 4:24 PM CDT [facility] Blood BLOOD SPECIMEN / Unknown 10/13/2023 4:04 PM CDT 10/13/2023 4:24 PM CDT Omi Fortune MD LAB - POINT OF CARE ORDERABLES Performing Organization Address [facility]/ZIP Co de Phone Number [facility] [address] [place] [address] * (ABNORMAL) URINE MICROSCOPIC ONLY (10/13/2023 2:24 PM CDT) [facility] RBC UA >100(A) 0 - 5 # /hpf 10/13/2023 2:57 PM CDT [facility] WBC UA >100(A) 0 - 5 # /hpf 10/13/2023 2:57 PM CDT [facility] Bacteria UA None Seen None Seen 10/13/2023 2:57 PM CDT [facility] Squamous Epithelial Cells 3-5 0 - 5 /hpf 10/13/2023 2:57 PM CDT [facility] Urine URINE SPECIMEN OBTAINED VIA [employer]IN[employer]HETER / Unknown Collection / Unknown 10/13/2023 2:24 PM CDT 10/13/2023 2:31 PM CDT Narrative [facility] - 10/13/2023 2:57 PM CDT Kalia Berry MD LAB - URINALYSIS ORD ERABLES [facility] [address] [place] [address] * LYTES (NA K CL) URINE RANDOM PANEL (10/13/2023 2:24 PM CDT) Sodium Urine <20 mmol/L 10/13/2023 2:55 PM CDT [facility] Potassium Urine 69.3 mmol/L 10/13/2023 2:55 PM CDT [facility] Chloride Urine <20.0 mmol/L 10/13/2023 2:55 PM CDT [facility] Urine URINE SPECIMEN OBTAINED BY CLEAN CATCH PROCEDURE / Unknown Collection / Unknown 10/13/2023 2:24 PM CDT 10/13/2023 2:31 PM CDT Kalia Berry MD LAB - URINE CHEMISTR Y ORDERABLES Performing Organization Address [facility] de Phone Number [facility] [address] [place] [address] * (ABNORMAL) URINALYSIS REFLEX TO MICROSCOPIC NO CULTURE (10/13/2023 2:24 PM CDT) Color UA Celia(A) Straw, Yellow 10/13/2023 2:45 PM CDT [facility] Clarity UA Cloudy(A) Clear 10/13/2023 2:45 PM CDT [facility] Glucose UA Negative Negative 10/13/2023 2:45 PM CDT [facility] Bilirubin UA Negative Negative 10/13/2023 2:45 PM CDT [facility] Ketone UA Negative Negative 10/13/2023 2:45 PM CDT [facility] Specific Justice UA 1.028 1.005 - 1.030 10/13/2023 2:45 PM CDT [facility] Blood UA 3+(A) Negative 10/13/2023 2:45 PM CDT [facility] pH UA 5.0 5.0 - 8.0 pH 10/13/2023 2:45 PM CDT [facility] Protein UA 2+(A) Negative 10/13/2023 2:45 PM CDT [facility] Urobilinogen UA Negative Negative mg/dL 10/13/2023 2:45 PM CDT [facility] Nitrite UA Negative Negative 10/13/2023 2:45 PM CDT [facility] Leukocyte UA 2+(A) Negative 10/13/2023 2:45 PM CDT [facility] Urine Microscopy Urine microscopy to follow 10/13/2023 2:45 PM CDT [facility] Urine URINE SPECIMEN OBTAINED VIA [employer] [facility] / Unknown Collection / Unknown 10/13/2023 2:24 PM CDT 10/13/2023 2:31 PM CDT Narrative [facility] - 10/13/2023 2:45 PM CDT Kalia Berry MD LAB - URINALYSIS ORD ERABLES [facility] [address] [place] [address] * (ABNORMAL) CK BLOOD (10/13/2023 11:53 AM CDT) CK 905(H) 30 - 200 U/L 10/13/2023 12:15 PM CDT [facility] Blood BLOOD SPECIMEN / Unknown Venipuncture / Unknown 10/13/2023 11:53 AM CDT 10/13/2023 11:58 AM CDT Kalia Berry MD LAB - CHEMISTRY ORDE RABANGELIA [facility] [address] [place] [address] * (ABNORMAL) BASIC METABOLIC PANEL (CALCIUM TOTAL) (10/13/2023 11:53 AM CDT) Glucose 131(H) 70 - 105 mg/dL 10/13/2023 12:15 PM CDT [facility] Sodium 139 136 - 145 mmol/L 10/13/2023 12:15 PM CDT [facility] Potassium 5.1 3.5 - 5.1 mmol/L 10/13/2023 12:15 PM CDT [facility] Chloride 105 98 - 107 mmol/L 10/13/2023 12:15 PM CDT [facility] CO2 24 22 - 29 mmol/L 10/13/2023 12:15 PM T [facility] Calcium 8.6 8.4 - 10.4 mg/dL 10/13/2023 12:15 PM [facility] Anion Gap 10 6 - 16 mmol/L 10/13/2023 12:15 PM [facility] BUN 60(H) 7 - 26 mg/dL 10/13/2023 12:15 PM [facility] Creatinine 3.01(H) 0.72 - 1.25 mg/dL 10/13/2023 12:15 PM [facility] eGFR by CKD-EPI 21(L) >=90 mL/min/1.7 3 m2 10/13/2023 12:15 PM [facility] Blood BLOOD SPECIMEN / Unknown Venipuncture / Unknown 10/13/2023 11:53 AM CDT 10/13/2023 11:58 AM CDT Halina Barraza MD LAB - CHEMISTRY ROYCE KLINE [facility] [address] [place] [id number] * (ABNORMAL) GLUCOSE - POINT OF CARE (10/13/2023 11:44 AM CDT) Glucose WB/POC 144(H) 70 - 106 mg/dL 10/13/2023 11:53 AM CDT [facility] Specimen Type Cap Fingerstick 2023 11:53 AM T [facility] Blood BLOOD SPECIMEN / Unknown 10/13/2023 11:44 AM CDT 10/13/2023 11:53 AM CDT Omi Fortune MD LAB - POINT OF CARE ORDERABLES [facility] [address] [place] [address] * (ABNORMAL) GLUCOSE - POINT OF CARE (10/13/2023 7:36 AM CDT) Glucose WB/POC 129(H) 70 - 106 mg/dL 10/13/2023 9:05 AM CDT [facility] Specimen Type Cap Fingerstick 2023 9:05 AM CDT [facility] Blood BLOOD SPECIMEN / Unknown 10/13/2023 7:36 AM CDT 10/13/2023 9:05 AM CDT Omi Fortune MD LAB - POINT OF CARE ORDERABLES [facility] [address] [place] [address] * (ABNORMAL) GLUCOSE - POINT OF CARE (10/13/2023 4:08 AM CDT) Glucose WB/POC 111(H) 70 - 106 mg/dL 10/13/2023 9:05 AM CDT [facility] Specimen Type Cap Fingerstick 2023 9:05 AM CDT [facility] Blood BLOOD SPECIMEN / Unknown 10/13/2023 4:08 AM CDT 10/13/2023 9:05 AM CDT Omi Fortune MD LAB - POINT OF CARE ORDERABLES Performing Organization Address [facility]/ZIP Co de Phone Number [facility] [address] [place] [address] * SLIDE SCAN HEMATOLOGY (10/13/2023 3:46 AM CDT) RBC Morphology NORMAL 10/13/2023 6:14 AM CDT [facility] Blood BLOOD SPECIMEN / Unknown Venipuncture / Unknown 10/13/2023 3:46 AM CDT 10/13/2023 3:55 AM CDT Omi Fortune MD LAB - HEMAT OLOGY ORDERABLES Performing Organization Address City/[facility]/ZIP Co de Phone Number [facility] [address] [place] [address] * (ABNORMAL) HEMOGLOBIN A1C (10/13/2023 3:46 AM CDT) Hemoglobin A1c 6.5(H) <5.7 % 10/13/2023 5:17 AM CDT [facility] Estimated Average Glucose 140 mg/dL 10/13/2023 5:17 AM CDT [facility] Blood BLOOD SPECIMEN / Unknown Venipuncture / Unknown 10/13/2023 3:46 AM CDT 10/13/2023 3:55 AM CDT [facility] - 10/13/2023 5:17 AM CDT HbA1c [...] Barraza MD LAB - CHEMISTRY ROYCE KLINE [facility] Organization Address City/State/ZIP Co de Phone Number [facility] [address] [place] [address] * (ABNORMAL) CBC W AUTO DIFFERENTIAL (10/13/2023 3:46 AM CDT) Pathologist [facility] WBC 25.5(H) 4.0 - 10.7 x10E9/L 10/13/2023 6:14 AM CDT [facility] RBC Count 3.30(L) 4.30 - 5.80 x10E12/L 10/13/2023 6:14 AM [facility] Hemoglobin 10.2(L) 13.3 - 17.5 g/dL 10/13/2023 6:14 AM [facility] Hematocrit 32.9(L) 38.7 - 51.1 % 10/13/2023 6:14 AM [facility] MCV 99.7(H) 80.0 - 98.0 fL 10/13/2023 6:14 AM [facility] MCH 30.9 26.7 - 33.6 pg 10/13/2023 6:14 AM [facility] MCHC 31.0(L) 31.7 - 36.3 g/dL 10/13/2023 6:14 AM [facility] RDW-CV 15.8(H) 11.3 - 14.8 % 10/13/2023 6:14 AM [facility] Platelet Count 86(L) 150 - 420 x10E9/L 10/13/2023 6:14 AM [facility] MPV 13.2(H) 7.8 - 11.4 fL 10/13/2023 6:14 AM [facility] Neutrophil % 89.4(H) 41.0 - 74.0 % 10/13/2023 6:14 AM [facility] Lymphocyte % 1.5(L) 17.0 - 47.0 % 10/13/2023 6:14 AM [facility] Monocyte % 6.4 3.0 - 11.0 % 10/13/2023 6:14 AM [facility] Eosinophil % 0.9 0.0 - 7.0 % 10/13/2023 6:14 AM [facility] Basophil % 0.2 0.0 - 1.6 % 10/13/2023 6:14 AM [facility] Immature Granulocytes % 1.6(H) 0.0 - 1.0 % 10/13/2023 6:14 AM [facility] Neutrophil Absolute 22.80(H) 1.60 - 7.50 x10E9/L 10/13/2023 6:14 AM [facility] Lymphocyte Absolute 0.37(L) 1.00 - 4.40 x10E9/L 10/13/2023 6:14 AM CDT [facility] Monocyte Absolute 1.62(H) 0.15 - 1.00 x10E9/L 10/13/2023 6:14 AM CDT [facility] Eosinophil Absolute 0.24 0.00 - 0.60 x10E9/L 10/13/2023 6:14 AM T [facility] Basophil Absolute 0.06 0.00 - 0.13 x10E9/L 10/13/2023 6:14 AM [facility] Blood BLOOD SPECIMEN / Unknown Venipuncture / Unknown 10/13/2023 3:46 AM CDT 10/13/2023 3:55 AM CDT Braga Christopher Fortune MD LAB - HEMAT OLOGY ORDERABLES [facility] [address] [place] [address] * (ABNORMAL) COMPREHENSIVE METABOLIC PANEL (10/13/2023 3:46 AM CDT) Glucose 117(H) 70 - 105 mg/dL 10/13/2023 4:13 AM [facility] Sodium 136 136 - 145 mmol/L 10/13/2023 4:13 AM [facility] Potassium 5.9(H) 3.5 - 5.1 mmol/L 10/13/2023 4:13 AM [facility] Chloride 106 98 - 107 mmol/L 10/13/2023 4:13 AM [facility] CO2 18(L) 22 - 29 mmol/L 10/13/2023 4:13 AM [facility] Calcium 8.2(L) 8.4 - 10.4 mg/dL 10/13/2023 4:13 AM [facility] Anion Gap 12 6 - 16 mmol/L 10/13/2023 4:13 AM [facility] BUN 58(H) 7 - 26 mg/dL 10/13/2023 4:13 AM [facility] Creatinine 2.94(H) 0.72 - 1.25 mg/dL 10/13/2023 4:13 AM CDT [facility] Alkaline Phosphatase 48 40 - 150 U/L 10/13/2023 4:13 AM CDT [facility] ALT 20 0 - 55 U/L 10/13/2023 4:13 AM CDT [facility] AST 61(H) 5 - 34 U/L 10/13/2023 4:13 AM CDT [facility] Protein Total 7.2 6.4 - 8.3 gm/dL 10/13/2023 4:13 AM CDT [facility] Albumin 2.4(L) 3.4 - 5.0 gm/dL 10/13/2023 4:13 AM CDT [facility] Bilirubin Total 0.7 0.2 - 1.2 mg/dL 10/13/2023 4:13 AM CDT [facility] eGFR by CKD-EPI 22(L) >=90 mL/min/1.7 3 m2 10/13/2023 4:13 AM CDT [facility] Blood BLOOD SPECIMEN / Unknown Venipuncture / Unknown 10/13/2023 3:46 AM CDT 10/13/2023 3:55 AM CDT Omi Fortune MD LAB - CHEMI STRY ORDERABLES [facility] [address] [place] [address] * MAGNESIUM BLOOD (10/13/2023 3:46 AM CDT) Magnesium 1.8 1.6 - 2.6 mg/dL 10/13/2023 4:13 AM CDT [facility] Blood BLOOD SPECIMEN / Unknown Venipuncture / Unknown 10/13/2023 3:46 AM CDT 10/13/2023 3:55 AM CDT Omi Fortune MD LAB - CHEMI STRY ORDERABLES [facility] [address] [place] [address] * VANCOMYCIN LEVEL RANDOM (10/13/2023 3:46 AM CDT) Vancomycin Random 13.3 <=40.0 ug/mL 10/13/2023 4:13 AM CDT [facility] Blood BLOOD SPECIMEN / Unknown Venipuncture / Unknown 10/13/2023 3:46 AM CDT 10/13/2023 3:55 AM CDT Narrative [facility] - 10/13/2023 4:13 AM CDT No reference range available for random Vancomycin levels. All results interpreted by ordering physician. Nas Mcnally MD LAB - CHEMISTRY ROYCE KLINE [facility] [address] [place] [address] * GLUCOSE - POINT OF CARE (10/13/2023 12:12 AM CDT) Glucose WB/POC 98 70 - 106 mg/dL 10/13/2023 1:32 AM CDT [facility] Specimen Type Cap Fingerstick 2023 1:32 AM CDT [facility] Blood BLOOD SPECIMEN / Unknown 10/13/2023 12:12 AM CDT 10/13/2023 1:32 AM CDT Omi Fortune MD LAB - POINT OF CARE ORDERABLES [facility] [address] [place] [address] * (ABNORMAL) GLUCOSE - POINT OF CARE (10/12/2023 8:13 PM CDT) Glucose WB/POC 111(H) 70 - 106 mg/dL 10/13/2023 1:32 AM CDT [facility] Specimen Type Cap Fingerstick 2023 1:32 AM CDT [facility] Blood BLOOD SPECIMEN / Unknown 10/12/2023 8:13 PM CDT 10/13/2023 1:32 AM CDT Omi Fortune MD LAB - POINT OF CARE ORDERABLES Performing Organization Address City/[facility]/ZIP Co de Phone Number [facility] [address] [place] [address] * (ABNORMAL) GLUCOSE - POINT OF CARE (10/12/2023 4:04 PM CDT) Pathologist [facility] Glucose WB/POC 123(H) 70 - 106 mg/dL 10/12/2023 5:34 PM CDT [facility] Specimen Type Cap Fingerstick 2023 5:34 PM CDT [facility] Blood BLOOD SPECIMEN / Unknown 10/12/2023 4:04 PM CDT 10/12/2023 5:34 PM CDT Omi Fortune MD LAB - POINT OF CARE ORDERABLES Performing Organization Address [facility] Co de Phone Number [facility] [address] [place] [address] * (ABNORMAL) BLOOD GASES ART + COOX PANEL (10/12/2023 12:02 PM CDT) [facility] pH Arterial 7.34(L) 7.35 - 7.45 pH [...] clinical context ml/dL 10/12/2023 12:06 PM T [facility] O2 Saturation Arterial 100 90 - 100 % 10/12/2023 12:06 PM T [facility] Methemoglobin <0.8 0.0 - 2.0 % 10/12/2023 12:06 PM T [facility] Carboxyhemoglobin 1.6 0.0 - 2.0 % 2023 12:06 PM T [facility] Hemoglobin by COOX 12.2 12.0 - 17.6 g/dL 10/12/2023 12:06 PM T [facility] Malik's Test Positive 10/12/2023 12:06 PM [facility] Sample Site Right RA 10/12/2023 12:06 PM [facility] Mode Spontaneous 10/12/2023 12:06 PM [facility] FI O2 30.0 % 10/12/2023 12:06 PM T [facility] PEEP (cmH2O) 5 10/12/2023 12:06 PM [facility] Pressure Support (cmH2O) 10 10/12/2023 12:06 PM [facility] P/F Ratio 360 10/12/2023 12:06 PM [facility] Blood, arterial ARTERIAL BLOOD SPECIMEN / Unknown 10/12/2023 12:02 PM CDT 10/12/2023 12:02 PM CDT Halina Barraza MD LAB - BLOOD GASES OR DERABLES [facility] [address] [facility] [employer] [address] [phone] * (ABNORMAL) GLUCOSE - POINT OF CARE (10/12/2023 11:43 AM CDT) [facility] Glucose WB/POC 173(H) 70 - 106 mg/dL 10/12/2023 8:26 PM CDT [facility] Specimen Type Cap Fingerstick 2023 8:26 PM T [facility] Blood BLOOD SPECIMEN / Unknown 10/12/2023 11:43 AM CDT 10/12/2023 8:26 PM CDT Omi Fortune MD LAB - POINT OF CARE ORDERABLES Performing Organization Address [facility]/ZIP Co de Phone Number [facility] [address] [place] [address] * (ABNORMAL) LACTIC ACID BLOOD (10/12/2023 11:36 AM CDT) Lactic Acid 2.1(H) <=2 mmol/L 10/12/2023 12:01 PM CDT [facility] Blood BLOOD SPECIMEN / Unknown Venipuncture / Unknown 10/12/2023 11:36 AM CDT 10/12/2023 11:48 AM CDT Halina Barraza MD LAB - CHEMISTRY ROYCE KLINE Performing Organization Address [facility] Co de Phone Number [facility] [address] [place] [address] * (ABNORMAL) RENAL FUNCTION PANEL (10/12/2023 11:36 AM CDT) Glucose 173(H) 70 - 105 mg/dL 10/12/2023 12:03 PM [facility] Sodium 137 136 - 145 mmol/L 10/12/2023 12:03 PM [facility] Potassium 5.3(H) 3.5 - 5.1 mmol/L 10/12/2023 12:03 PM [facility] Chloride 107 98 - 107 mmol/L 10/12/2023 12:03 PM [facility] CO2 21(L) 22 - 29 mmol/L 10/12/2023 12:03 PM [facility] Calcium 8.4 8.4 - 10.4 mg/dL 10/12/2023 12:03 PM [facility] Anion Gap 9 6 - 16 mmol/L 10/12/2023 12:03 PM [facility] BUN 41(H) 7 - 26 mg/dL 10/12/2023 12:03 PM [facility] Creatinine 2.82(H) 0.72 - 1.25 mg/dL 10/12/2023 12:03 PM CDT [facility] Albumin 2.6(L) 3.4 - 5.0 gm/dL 10/12/2023 12:03 PM CDT [facility] Phosphorus 3.7 2.3 - 4.7 mg/dL 10/12/2023 12:03 PM CDT [facility] eGFR by CKD-EPI 23(L) >=90 mL/min/1.7 3 m2 10/12/2023 12:03 PM CDT [facility] Blood BLOOD SPECIMEN / Unknown Venipuncture / Unknown 10/12/2023 11:36 AM CDT 10/12/2023 11:48 AM CDT Halina Barraza MD LAB - CHEMISTRY ROYCE KLINE [facility] Organization Address City/State/ZIP Co de Phone Number [facility] [address] [facility] [place] [phone] * ECHO COMPLETE W CONTRAST (10/12/2023 11:00 [...] 3.0 cm [facility] FUJ I PACS [id number] 6.792 cm [facility] CV FUJ I PACS [id number] 7.103 cm [facility] CV FUJ I PACS [...] C-REACTIVE PROTEIN (10/12/2023 10:28 AM CDT) Pathologist [facility] C-Reactive Protein 24.35(H) <=0.50 mg/dL 10/12/2023 11:03 AM CDT [facility] Blood BLOOD SPECIMEN / Unknown Venipuncture / Unknown 10/12/2023 10:28 AM CDT 10/12/2023 10:34 AM CDT Aneta Campbell DO LAB - CHEMISTRY O RDERABLES [facility] [facility] [address] [place] [address] * (ABNORMAL) CK BLOOD (10/12/2023 10:28 AM CDT) Pathologist [facility] CK 226(H) 30 - 200 U/L 10/12/2023 11:03 AM CDT [facility] Blood BLOOD SPECIMEN / Unknown Venipuncture / Unknown 10/12/2023 10:28 AM CDT 10/12/2023 10:34 AM CDT Aneta Quinterogala-Deylakosua DO LAB - CHEMISTRY O RDERABLES Performing Organization Address City/[facility]/ZIP Co de Phone Number [facility] [address] [place] [address] * LIPASE BLOOD (10/12/2023 10:28 AM CDT) Lipase 6 <60 U/L 10/12/2023 10:53 AM CDT [facility] Blood BLOOD SPECIMEN / Unknown Venipuncture / Unknown 10/12/2023 10:28 AM CDT 10/12/2023 10:34 AM CDT Aneta Quinteroarenjosee-Morganylakosua DO LAB - CHEMISTRY O RDERABLES Performing Organization Address [facility] Co de Phone Number [facility] [address] [place] [address] * CT FEMUR LEFT WO CONTRAST (10/12/2023 [...] left knee. > Interpreting Provider: Jose Alberto Kepm MD on 10/12/2023 11:59 AM Narrative 10/12/2023 [...] on 10/12/2023 11:59 AM Jody Montenegro Ruben PC ANALYST-MAINTENANCE AND UTILITIES SUPERVISOR CT ORDERABLES * CULTURE BLOOD (10/12/2023 8:52 AM CDT) Culture No growth day 5 UMESH 10/17/2023 9:30 AM CDT [facility] Blood PERIPHERAL BLOOD / Unknown Lab Venipuncture / Unknown 10/12/2023 8:52 AM CDT 10/12/2023 8:52 AM CDT Halina Barraza MD LAB - MICROBIOLOGY O RIO Performing Organization Address City/[facility]/ZIP Co de Phone Number [facility]CROBI[facility] [address] [place] [address], [facility] [phone] * CULTURE BLOOD (10/12/2023 8:52 AM CDT) Culture No growth day 5 UMESH 10/17/2023 9:30 AM CDT [facility] MICROBIOLOG[facility] Blood PERIPHERAL BLOOD / Unknown Lab Venipuncture / Unknown 10/12/2023 8:52 AM CDT 10/12/2023 8:52 AM CDT Halina Barraza MD LAB - MICROBIOLOGY O RIO Performing Organization Address [facility] de Phone Number [facility]CROBI[facility] [address] [place] [address], [facility] [phone] * (ABNORMAL) BLOOD GASES ART + COOX [...] clinical context ml/dL 10/12/2023 8:42 AM CDT [facility] O2 Saturation Arterial 100 90 - 100 % 10/12/2023 8:42 AM CDT [facility] Methemoglobin <0.8 0.0 - 2.0 % 10/12/2023 8:42 AM CDT [facility] Carboxyhemoglobin 1.8 0.0 - 2.0 % 2023 8:42 AM CDT [facility] Hemoglobin by COOX 12.6 12.0 - 17.6 g/dL 10/12/2023 8:42 AM CDT [facility] Malik's Test Positive 10/12/2023 8:42 AM CDT [facility] Sample Site Left RA 10/12/2023 8:42 AM CDT [facility] Mode CMV 10/12/2023 8:42 AM CDT [facility] FI O2 35.0 % 10/12/2023 8:42 AM CDT [facility] Mechanical Tidal Volume (mL) 450 10/12/2023 8:42 AM CDT [facility] Mechanical Respiratory Rate (bpm) 24 10/12/2023 8:42 AM CDT [facility] PEEP (cmH2O) 5 10/12/2023 8:42 AM CDT [facility] P/F Ratio 326 10/12/2023 8:42 AM CDT [facility] Blood, arterial ARTERIAL BLOOD SPECIMEN / Unknown 10/12/2023 8:37 AM CDT 10/12/2023 8:37 AM CDT Halina Barraza MD LAB - BLOOD GASES OR DERABLES [facility] [address] [facility] [employer] [address] [phone] * XR CHEST 1VW PORTABLE (10/12/2023 5:55 [...] - 7.45 pH 10/12/2023 5:22 AM CDT [facility] pCO2 Arterial 50(H) 35 - 45 mmHg 10/12/2023 5:22 AM CDT [facility] pO2 Arterial 91 80 - 100 mmHg 10/12/2023 5:22 AM CDT [facility] HCO3 Arterial 24.0 22.0 - 26.0 mmol/L 10/12/2023 5:22 AM CDT [facility] BE Arterial -3.1(L) -2.0 - 2.0 mmol/L 10/12/2023 5:22 AM CDT [facility] O2 Saturation Arterial 98 90 - 100 % 10/12/2023 5:22 AM CDT [facility] Malik's Test Positive 10/12/2023 5:22 AM CDT [facility] Sample Site Right RA 10/12/2023 5:22 AM CDT [facility] FI O2 35.0 % 10/12/2023 5:22 AM CDT [facility] Mechanical Tidal Volume (mL) 450 10/12/2023 5:22 AM CDT [facility] Mechanical Respiratory Rate (bpm) 20 10/12/2023 5:22 AM CDT [facility] PEEP (cmH2O) 5 10/12/2023 5:22 AM CDT [facility] P/F Ratio 260 10/12/2023 5:22 AM CDT [facility] Blood, arterial ARTERIAL BLOOD SPECIMEN / Unknown 10/12/2023 5:08 AM CDT 10/12/2023 5:08 AM CDT Nas Mcnally MD LAB - BLOOD GASES OR DERABLES [facility] [address] [facility] [employer] [address] [phone] * (ABNORMAL) SLIDE SCAN HEMATOLOGY (10/12/2023 5:03 AM CDT) RBC Morphology REVIEWED 10/12/2023 6:58 AM CDT [facility] Large Platelets PRESENT(A) (none) 10/12/2023 6:58 AM CDT [facility] Blood BLOOD SPECIMEN / Unknown Lab Venipuncture / Unknown 10/12/2023 5:03 AM CDT 10/12/2023 5:13 AM CDT Nas Mcnally MD LAB - HEMATOLOGY ORD SP Performing Organization Address City/[facility]/ZIP Co de Phone Number [facility] [address] [place] [address] * PHOSPHORUS BLOOD (10/12/2023 5:03 AM CDT) Phosphorus 3.1 2.3 - 4.7 mg/dL 10/12/2023 5:34 AM CDT [facility] Blood BLOOD SPECIMEN / Unknown Lab Venipuncture / Unknown 10/12/2023 5:03 AM CDT 10/12/2023 5:13 AM CDT Nas Mcnally MD LAB - CHEMISTRY ROYCE KLINE Performing Organization Address [facility]/ZIP Co de Phone Number [facility] [address] [place] [address] * MAGNESIUM BLOOD (10/12/2023 5:03 AM CDT) Magnesium 1.6 1.6 - 2.6 mg/dL 10/12/2023 5:35 AM CDT [facility] Blood BLOOD SPECIMEN / Unknown Lab Venipuncture / Unknown 10/12/2023 5:03 AM CDT 10/12/2023 5:13 AM CDT Nas Mcnally MD LAB - CHEMISTRY ROYCE KLINE Performing Organization Address [facility]/ZIP Co de Phone Number [facility] [address] [place] [address] * (ABNORMAL) LACTIC ACID BLOOD (10/12/2023 5:03 AM CDT) Lactic Acid 2.6(H) <=2 mmol/L 10/12/2023 5:31 AM [facility] Blood BLOOD SPECIMEN / Unknown Lab Venipuncture / Unknown 10/12/2023 5:03 AM CDT 10/12/2023 5:12 AM CDT Nas Mcnally MD LAB - CHEMISTRY ROYCE KLINE [facility] [address] [place] [address] * (ABNORMAL) COMPREHENSIVE METABOLIC PANEL (10/12/2023 5:03 AM CDT) Pathologist [facility] Glucose 140(H) 70 - 105 mg/dL 10/12/2023 5:34 AM [facility] Sodium 139 136 - 145 mmol/L 10/12/2023 5:34 AM [facility] Potassium 5.4(H) 3.5 - 5.1 mmol/L 10/12/2023 5:34 AM [facility] Chloride 108(H) 98 - 107 mmol/L 10/12/2023 5:34 AM [facility] CO2 22 22 - 29 mmol/L 10/12/2023 5:34 AM [facility] Calcium 8.9 8.4 - 10.4 mg/dL 10/12/2023 5:34 AM [facility] Anion Gap 9 6 - 16 mmol/L 10/12/2023 5:34 AM [facility] BUN 38(H) 7 - 26 mg/dL 10/12/2023 5:34 AM [facility] Creatinine 2.70(H) 0.72 - 1.25 mg/dL 10/12/2023 5:34 AM [facility] Alkaline Phosphatase 64 40 - 150 U/L 10/12/2023 5:34 AM [facility] ALT 17 0 - 55 U/L 10/12/2023 5:34 AM [facility] AST 24 5 - 34 U/L 10/12/2023 5:34 AM [facility] Protein Total 6.7 6.4 - 8.3 gm/dL 10/12/2023 5:34 AM CDT [facility] Albumin 3.0(L) 3.4 - 5.0 gm/dL 10/12/2023 5:34 AM CDT [facility] Bilirubin Total 1.6(H) 0.2 - 1.2 mg/dL 10/12/2023 5:34 AM CDT [facility] eGFR by CKD-EPI 24(L) >=90 mL/min/1.7 3 m2 10/12/2023 5:34 AM CDT [facility] Blood BLOOD SPECIMEN / Unknown Lab Venipuncture / Unknown 10/12/2023 5:03 AM CDT 10/12/2023 5:13 AM CDT Nas Mcnally MD LAB - CHEMISTRY ROYCE KLINE [facility] Organization Address City/State/ZIP Co de Phone Number [facility] [address] [place] [address] * (ABNORMAL) COAGULATION PANEL W D-DIMER (10/12/2023 5:03 AM CDT) PT 15.6(H) 12.1 - 14.8 sec 10/12/2023 5:45 AM CDT [facility] INR 1.2(H) 0.9 - 1.1 10/12/2023 5:45 AM CDT [facility] PTT 32.6 23.0 - 38.4 sec 10/12/2023 5:45 AM CDT [facility] Fibrinogen 546(H) 200 - 400 mg/dL 10/12/2023 5:45 AM CDT [facility] D-Dimer 0.91(H) 0.27 - 0.50 ug/mL FEU 10/12/2023 5:45 AM CDT [facility] Platelet Count 113(L) 150 - 420 x10E9/L 10/12/2023 5:45 AM CDT [facility] Blood BLOOD SPECIMEN / Unknown Lab Venipuncture / Unknown 10/12/2023 5:03 AM CDT 10/12/2023 5:13 AM CDT Narrative [facility] - 10/12/2023 5:45 AM [...] Mcnally MD LAB - COAGULATION OR DERABLES [facility] [address] [place] [id number] * (ABNORMAL) CBC W AUTO DIFFERENTIAL (10/12/2023 5:03 AM CDT) WBC 36.4(H) 4.0 - 10.7 x10E9/L 10/12/2023 6:58 AM [facility] RBC Count 4.22(L) 4.30 - 5.80 x10E12/L 10/12/2023 6:58 AM [facility] Hemoglobin 13.0(L) 13.3 - 17.5 g/dL 10/12/2023 6:58 AM [facility] Hematocrit 43.1 38.7 - 51.1 % 10/12/2023 6:58 AM [facility] MCV 102.1(H) 80.0 - 98.0 fL 10/12/2023 6:58 AM [facility] MCH 30.8 26.7 - 33.6 pg 10/12/2023 6:58 AM [facility] MCHC 30.2(L) 31.7 - 36.3 g/dL 10/12/2023 6:58 AM [facility] RDW-CV 15.6(H) 11.3 - 14.8 % 10/12/2023 6:58 AM [facility] Platelet Count 124(L) 150 - 420 x10E9/L 10/12/2023 6:58 AM [facility] MPV 12.9(H) 7.8 - 11.4 fL 10/12/2023 6:58 AM [facility] Neutrophil % 90.9(H) 41.0 - 74.0 % 10/12/2023 6:58 AM [facility] Lymphocyte % 2.1(L) 17.0 - 47.0 % 10/12/2023 6:58 AM [facility] Monocyte % 5.4 3.0 - 11.0 % 10/12/2023 6:58 AM [facility] Eosinophil % 0.0 0.0 - 7.0 % 10/12/2023 6:58 AM [facility] Basophil % 0.4 0.0 - 1.6 % 10/12/2023 6:58 AM [facility] Immature Granulocytes % 1.2(H) 0.0 - 1.0 % 10/12/2023 6:58 AM CDT [facility] Neutrophil Absolute 33.06(H) 1.60 - 7.50 x10E9/L 10/12/2023 6:58 AM CDT [facility] Lymphocyte Absolute 0.78(L) 1.00 - 4.40 x10E9/L 10/12/2023 6:58 AM CDT [facility] Monocyte Absolute 1.96(H) 0.15 - 1.00 x10E9/L 10/12/2023 6:58 AM CDT [facility] Eosinophil Absolute 0.00 0.00 - 0.60 x10E9/L 10/12/2023 6:58 AM CDT [facility] Basophil Absolute 0.14(H) 0.00 - 0.13 x10E9/L 10/12/2023 6:58 AM CDT [facility] Blood BLOOD SPECIMEN / Unknown Lab Venipuncture / Unknown 10/12/2023 5:03 AM CDT 10/12/2023 5:13 AM CDT Nas Mcnally MD LAB - HEMATOLOGY ORD ERABLES [facility] [address] [place] [id number] documented in this encounter Visit Diagnoses Diagnosis [...] 30 mg, Oral, DAILY, First dose on [facility] 10/13/23 at 1000, Until Discontinued, Capsules can [...] DAILY, First dose (after last modification) on [facility] 10/15/23 at 1400, Until Discontinued $ [...] CDT 5,000 Units A bdominal Tissue HYDROcodone-acetaminophen ([place]) 5-325 MG tablet 1 tablet 1 tablet, [...] 10/25/2023 9:49 AM CDT 1 tablet HYDROcodone-acetaminophen ([place]) 5-325 MG tablet 1 tablet 1 tablet, [...] 10/30/2023 9:48 AM CDT 1 tablet HYDROcodone-acetaminophen ([place]) 7.5-325 MG tablet 1 tablet 1 tablet, [...] g = 0.5 g/kg ? 75.3 kg [place] weight), at 0-999 mL/hr, Intravenous, CONTINUOUS, Starting [...] g = 1 g/kg ? 75.3 kg [place] weight), at 0-999 mL/hr, Intravenous, CONTINUOUS, Starting [...] Inhalation, EVERY 6 HOURS, First dose on [place] 10/30/23 at 1500, Until Discontinued $ Given [...] Hours, EVERY 24 HOURS, First dose on [facility] 10/22/23 at 1330, Until Discontinued, Apply [...] 60 Minutes, Intravenous, ONCE, 1 dose, On [facility] 10/27/23 at 1030, Infuse at 1 gm/hr [...] RCP)2038 ($ Given - Provider: Christina Orta ENTRY LEVEL BUSINESS ANALYST) 0302 ($ Given - Provider: Christina Orta [...] RN) 0835 ($ Given - Provider: Lonny Carrillo, RN) [...] 1 tube delivers 15 grams dextrose/carbohydrates HYDROcodone-acetaminophen ([place]) 7.5-325 MG tablet 1 tablet 1 tablet, [...] documented as of this encounter Care Teams Decator Operator Relationship Specialty Start Date End Date Unknown, Provider PCP - General 08/23/22 10/12/23 Napoleon Birmingham PCP - General 10/13/23 05/14/24 documented as of this encounter
--- OUTSIDE RECORDS SUMMARY | 2024-05-25 02:59 | XMS_ITS | Encounter Summary ---
Author Organization [facility] Address [address] [facility] [place] [address] Care Team Providers Care Political Anthropologist Name Role Phone Unknown, Provider Primary Care Provider Unavaila ble Encounter Details Date Type Department Care Team (Late st Contact Info) Description 05/24/2023 Orders Only [facility] [address] [place] [phone] Cheri Clark, ingredient scaler helper gastric ulcer with hemorrhage Social History Tobacco [...] st Contact Info) Description 07/09/2024 12:30 PM CONTENT DEVELOPMENT SPECIALIST Office Visit [facility] [address] [facility] [address] Twin Miller MD [address] [facility] 2L [place] [address] 09/19/2024 2:00 PM CDT Office Visit [facility] - Orthopedic Surgery [address] [place] [address] Larry Alexander MD [address] [place] [address] Scheduled Orders Name Type Priority Associated Diagnoses [...] documented as of this encounter Care Teams Political Anthropologist Relationship Specialty Start Date End Date Unknown, Provider PCP - General 08/23/22 10/12/23 documented as of this encounter
--- OUTSIDE RECORDS SUMMARY | 2024-05-25 02:59 | XMS_ITS | Encounter Summary ---
Author Organization [facility] Address [address] [facility] [place] [address] Care Team Providers Care Stringing Machine Tender Name Role Phone Napoleon Birmingham Primary Care [...] and heating? Not hard at all 10/14/2023 [facility] [place] of Occupat ional Health - Occupational Stress [...] st Contact Info) Description 07/09/2024 12:30 PM GOLD RECLAIMER Office Visit [facility] [address] [place] [address], [place] [phone] Twin Miller MD [address] [place] [address] [place] [address] 09/19/2024 2:00 PM CDT Office Visit [facility] - Orthopedic Surgery [facility] [place] [phone] Larry Alexander MD [address] [place] [address] documented as of this encounter Goals Goal [...] documented as of this encounter Care Teams Stringing Machine Tender Relationship Specialty Start Date End Date Napoleon Birmingham PCP - General 10/13/23 05/14/24 documented as of this encounter
--- OUTSIDE RECORDS SUMMARY | 2024-05-25 02:59 | XMS_ITS | Encounter Summary ---
Author Organization [facility] Address [address] [facility] [place] [address] Care Team Providers Care Set Up Person Name Role Phone Unknown, Provider Primary Care [...] st Contact Info) Description 07/09/2024 12:30 PM HI LIFT OPERATOR [place] [facility] [place] [address] [place] [address], [place] [phone] Twin Miller MD [address] [place] [address] [place] [address] 09/19/2024 2:00 PM CDT Office Visit [facility] - Orthopedic Surgery [address] [place] [address] Larry Alexander MD [address] [facility] [address] [place] [address] documented as of this encounter Goals Goal [...] documented as of this encounter Care Teams Set Up Person Relationship Specialty Start Date End Date Unknown, Provider PCP - General 08/23/22 10/12/23 documented as of this encounter
--- OUTSIDE RECORDS SUMMARY | 2024-05-25 03:00 | XMS_ITS | Encounter Summary ---
Author Organization [facility] Address [address] [place] [address] Care Team Providers Care Painter Helper Spray Name Role Phone Briana Medeiros MD Primary Care Provider [phone] Reason for Visit * Reason Comments Infectious Disease Wound Assessment 1 ye ar follow-up Encounter Details Date Type Department Care Team (Latest Contact Info) Description 10/20/2021 9:48 AM CDT - 10/20/2021 11:59 PM CDT Hospital Encounter Wound Care at [facility] [address] [place] [address] Raysa Nevarez MD [address] [place] [id number] Discharge Disposition: Home or Self Care Social [...] mouth 2 times daily 10/12/2023 nystatin (MYCOSTATIN) 669315 UNIT/GM powder Apply to affected area 2 [...] of the Body, eyes 10/12/2023 Spacer/Aero-Holding Chambers ([facility]) MISC as directed 11/17/2020 10/12/2023 spironolactone (ALDACTONE) 50 MG tablet Take 1 (one) tablet by mouth once daily 30 tablet 5 12/30/2020 02/23/2022 triamcinolone acetonide (KENALOG) 0.1 % cream Apply to affected area 2 times daily as needed Apply to rash daily as needed. 10/12/2023 vitamin D, ergocalciferol, (DRISDOL) 02080 UNITS capsuleIndications:Oth er cirrhosis of liver (HCC) [...] results for input(s): CDIFFTOXINAB in the last 18069 hours. Recent Labs Component Name 04/24/19 1141 SEDRATE 70* No results for input(s): CK in the last 78703 hours. .No results for input(s): VANCOTROUGH, VANCOPEAK, VANCSERIES in the last 58681 hours. Invalid input(s): FESTUSARSH Recent Labs Component [...] Contact Info) Description 07/09/2024 12:30 PM SUPERVISOR INTERNATIONAL RESERVATIONS Office Visit [facility] [address] [place] [address], [place] [address] Twin Miller MD [address] [place] [address] [place] [address] 09/19/2024 2:00 PM CDT Office Visit [facility] - Orthopedic Surgery [address] [place] [phone] Larry Alexander MD [address] [facility] [address] [place] [address] documented as of this encounter Goals Goal [...] documented as of this encounter Care Teams Painter Helper Spray Relationship Specialty Start Date End Date Briana Medeiros MD [address] [place], [place] [phone] PCP - General 02/15/18 02/22/22 documented as of this encounter
--- OUTSIDE RECORDS SUMMARY | 2024-05-25 03:00 | XMS_ITS | Encounter Summary ---
Author Organization [facility] Address [address] [facility] [place] [address] Care Team Providers Care Paint Spray Tender Name Role Phone Briana Medeiros MD Primary Care Provider [phone] Encounter Details Date Type Department Care Team [...] st Contact Info) Description 07/09/2024 12:30 PM VAT PACKER Office Visit [facility] [address] [facility], [place] [address] Twin Miller MD [address] [facility] [address] [facility] [place] [address] 09/19/2024 2:00 PM CDT Office Visit [facility] - Orthopedic Surgery [address] [facility] [place] [phone] Larry Alexander MD [address] [facility] [address] [place] [address] documented as of this encounter Goals Goal [...] documented as of this encounter Care Teams Paint Spray Tender Relationship Specialty Start Date End Date Briana Medeiros MD [address] [place] [id number] PCP - General 02/15/18 02/22/22 documented as of this encounter
--- OUTSIDE RECORDS SUMMARY | 2024-05-25 03:00 | XMS_ITS | Encounter Summary ---
Author Organization [facility] Address [address] [facility] [place] [address] Care Team Providers Care Patient Support Tech Name Role Phone Unknown, Provider Primary Care Provider Unavaila ble Encounter Details Date Type Department Care Team (Late Contact Info) Description 03/08/2023 Orders Only [facility] [place] GI [address] [place] [address] Jackelyn Licona MD [address] [place] [phone] Social History Tobacco Use Types Packs/Day Years [...] (Late Contact Info) Description 07/09/2024 12:30 PM BAND STRAIGHTENER Office Visit [facility] - GI [address] [facility], [place] [address] Twin Miller MD [facility] [place] [address] 09/19/2024 2:00 PM CDT Office Visit [facility] - Orthopedic Surgery [address] [facility] [place] [address] Larry Alexander MD 1031 [facility] [address] [place] [address] documented as of this encounter Goals Goal [...] Results * PT-INR (03/08/2023 1:49 PM CDT) [facility] INR 1.0 [facility] Comment: Reference Range ? 0.9-1.1 Moderate-intensity Warfarin Therapy 2.0-3.0 Higher-intensity Warfarin Therapy ?? 3.0-4.0 PT 11.0 9.0 - 11.5 sec [facility] Comment: For additional information, please refer to http://education.[employer]/faq/IYS067 (This link is being provided for informational/ educational purposes only.) REPORT COMMENT: FASTING:NO Test Performed at: [address] ??[phone] DORIAN CRUZ MD 03/08/2023 1:49 PM CDT 03/08/2023 1:50 PM CDT Jackelyn Licona MD LAB - COAGULATION OR DERABLES Performing Organization Address [facility] Co de Phone Number [address] [address] * ALPHA FETOPROTEIN BLOOD TUMOR MARKER (03/08/2023 1:47 PM CDT) [facility] Alpha-Fetoprotei n Tumor Marker 1.8 <6.1 ng/mL [facility] Comment: This test was performed using the Flex Mercer chemiluminescent method. Values obtained from different assay methods cannot be used interchangeably. AFP levels, regardless of value, should not be interpreted as absolute evidence of the presence or absence of disease. REPORT COMMENT: FASTING:NO Test Performed at: [facility] [address] ??[phone] LAURA REYES 03/08/2023 1:47 PM CDT 03/08/2023 1:47 PM CDT Jackelyn Licona MD LAB - CHEMISTRY ORDE RABANGELIA Performing Organization Address [facility] Co de Phone Number [address] [address] * (ABNORMAL) CBC W/O DIFFERENTIAL (03/08/2023 1:47 PM CDT) [facility] White Blood Cell Count 11.4(H) 3.8 - [...] 12.5 fL [facility] Comment: Test Performed at: [facility] [address] [place] [address] ??[phone] CELSA SINGLETON,PHD 03/08/2023 1:47 PM CDT 03/08/2023 1:47 PM CDT Jackelyn Licona MD LAB - HEMATOLOGY ORD ERABLES [facility] [address] [place] [address] * (ABNORMAL) COMPREHENSIVE METABOLIC PANEL (03/08/2023 1:47 PM CDT) [facility] Glucose 104 65 - 139 mg/dL [facility] [...] 46 U/L [facility] Comment: Test Performed at: [facility] [address] [place], [place] ??[phone] CELSA SINGLETON,PHD 03/08/2023 1:47 PM CDT 03/08/2023 1:47 PM CDT Jackelyn Licona MD LAB - CHEMISTRY ROYCE K[facility] Organization Address City/State/[facility] Co de Phone Number [facility] [address] [place] [address] documented in this encounter Visit Diagnoses Not on filedocumented in this encounter Additional Health Concerns Infection Onset Date Last Indicated Resolved Time 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
--- OUTSIDE RECORDS SUMMARY | 2024-05-25 03:00 | XMS_ITS | Encounter Summary ---
Author Organization 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) Lower extremity edema Cirrhosis of liver without ascites, unspecified hepatic cirrhosis type (HCC) Procedures US ABDOMEN LIMITED Jackelyn Licona MD [address] [place] [address] [facility] [address] [place] [address] Referral ID Status Reason Start Date Expiration Date Visits Re quested Visits Authorized [id number] Closed 08/23/2022 08/23/2023 1 1 Reason for Visit * Radiology Services (Routine) - Closed Specialty Diagnoses / Procedures Referred By Contac t Referred To Contact Ultrasound Diagnoses 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) Lower extremity edema Cirrhosis of liver without ascites, unspecified hepatic cirrhosis type (HCC) Procedures US ABDOMEN LIMITED Jackelyn Licona MD [address] [place] [address] [facility] [address] [place] [address] Referral ID Status Reason Start Date Expiration Date Visits Re quested Visits Authorized [id number] Closed 08/23/2022 08/23/2023 1 1 Encounter Details Date Type Department Care Team (Late st Contact Info) Description 03/21/2023 10:01 AM CDT - 03/21/2023 11:59 PM CDT Hospital Encounter [place] [address] [place] [address] Jackelyn Licona MD [address] [place] [address] Discharge Disposition: Home or Self Care Social [...] (Lidoderm) 5 % patch 01/25/2023 11/03/2023 nystatin 806514 UNIT/GM cream - BACITRACIN ointment 50:50 CREA [...] of the Body, eyes 10/12/2023 Spacer/Aero-Holding Chambers ([facility]) MISC as directed 11/17/2020 10/12/2023 triamcinolone acetonide (KENALOG) 0.1 % cream Apply to affected area 2 times daily as needed Apply to rash daily as needed. 10/12/2023 documented as of this encounter Plan of Treatment Upcoming Encounters Date Type Department Care Team (Late st Contact Info) Description 07/09/2024 12:30 PM HOT MILL SHEARER Office Visit [facility] - GI [address] [facility], [place] [address] Twin Miller MD [address] [place] [address] [place] [address] 09/19/2024 2:00 PM CDT Office Visit [facility] - Orthopedic Surgery [facility] [place] [address] Larry Alexander MD [address] [facility] 280 [place] [address] documented as of this encounter Goals Goal [...] DATE/TIME OF EXAM: ??03/21/2023 10:01 AM, LOCATION ??[facility] INDICATION: K75.81: Liver cirrhosis secondary [...] DATE/TIME OF EXAM: 03/21/2023 10:01 AM, LOCATION [facility] INDICATION: K75.81: Liver cirrhosis secondary [...] documented as of this encounter Care Teams Chief Lifestyle Officer Relationship Specialty Start Date End Date Unknown, Provider PCP - General 08/23/22 10/12/23 documented as of this encounter
--- OUTSIDE RECORDS SUMMARY | 2024-05-25 03:00 | XMS_ITS | Encounter Summary ---
Author Organization [facility] Address [address] [facility] [place] [place] [address] Care Team Providers Care Prosthetic Lab Technician Name Role Phone Unknown, Provider Primary Care Provider Unavaila ble Encounter Details Date Type Department Care Team (Late st Contact Info) Description 10/07/2022 Orders Only [facility] - [address] [facility], [place] [address] Jackelyn Licona MD [address] [place] [address] Social History Tobacco Use Types Packs/Day Years [...] st Contact Info) Description 07/09/2024 12:30 PM BRIDGE WORKER APPRENTICE Office Visit [facility] - GI [address] [facility], [place] [address] Twin Miller MD [facility] DIV [place] [address] 09/19/2024 2:00 PM CDT Office Visit [facility] - Orthopedic Surgery [address] [place] [phone] Larry Alexander MD [address] [facility] 280 [place] [address] documented as of this encounter Goals Goal [...] documented as of this encounter Care Teams Prosthetic Lab Technician Relationship Specialty Start Date End Date Unknown, Provider PCP - General 08/23/22 10/12/23 documented as of this encounter
--- OUTSIDE RECORDS SUMMARY | 2024-05-25 03:00 | XMS_ITS | Encounter Summary ---
Author Organization [facility] Address [address] [facility] [place] [address] Care Team Providers Care Telegraph Service Rater Name Role Phone Unknown, Provider Primary Care Provider Unavaila ble Reason for Visit * Reason Comments Refill Request Encounter Details Date Type Department Care Team (Late st Contact Info) Description 10/15/2022 Refill [facility] - [address] [phone] Jackelyn Licona MD [address] [place] [phone] Refill Request Social History Tobacco Use Types [...] st Contact Info) Description 07/09/2024 12:30 PM COLD PRESS OPERATOR Office Visit [facility] - GI [address] [facility], [place] [address] Twin Miller MD [facility] [place] [address] 09/19/2024 2:00 PM CDT Office Visit [facility] - Orthopedic Surgery [address] [facility] [place] [address] Larry Alexander MD [address] [facility] 280 [place] [address] documented as of this encounter Goals Goal [...] documented as of this encounter Care Teams Telegraph Service Rater Relationship Specialty Start Date End Date Unknown, Provider PCP - General 08/23/22 10/12/23 documented as of this encounter
--- OUTSIDE RECORDS SUMMARY | 2024-05-25 03:00 | XMS_ITS | Encounter Summary ---
Author Organization [facility] Address [address] [facility] [place] [address] Care Team Providers Care Welcome Hostess Name Role Phone Unknown, Provider Primary Care Provider Unavaila ble Reason for Visit * Reason Onset Date Comments Post Op Call 10/08/2022 Procedure follow up Encounter Details Date Type Department Care Team (Late st Contact Info) Description 10/08/2022 Patient Outreach [facility] [address] [place] [phone] Cathy Atwood RN Post Op Call (Procedure [...] st Contact Info) Description 07/09/2024 12:30 PM ACCOUNTS PAYABLE ANALYST Office Visit [facility] - GI [address] [place] [address], [place] [address] Twin Miller MD [address] [place] [address] [place] [address] 09/19/2024 2:00 PM CDT Office Visit [facility] - Orthopedic Surgery [address] [place] [address] Larry Alexander MD 10[address] [facility] 280 [place] [address] documented as of this encounter Goals Goal [...] documented as of this encounter Care Teams Welcome Hostess Relationship Specialty Start Date End Date Unknown, Provider PCP - General 08/23/22 10/12/23 documented as of this encounter
--- OUTSIDE RECORDS SUMMARY | 2024-05-25 03:00 | XMS_ITS | Encounter Summary ---
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) Lower extremity edema Cirrhosis of liver without ascites, unspecified hepatic cirrhosis type (HCC) Screening of cancer Procedures US ABDOMEN LIMITED Jackelyn Licona MD [address] [place] [address] [place] [address] [place] [address] Referral ID Status Reason Start Date Expiration Date Visits Re quested Visits Authorized [id number] Closed 08/17/2021 08/17/2022 1 1 * Radiology Services (Routine) - Closed Specialty Diagnoses / Procedures Referred By Contac t Referred To Contact Ultrasound Diagnoses 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) Lower extremity edema Cirrhosis of liver without ascites, unspecified hepatic cirrhosis type (HCC) Screening of cancer Procedures US ABDOMEN LIMITED Jackelyn Licona MD [address] [place] [address] [place] [address] [place] [address] Referral ID Status Reason Start Date Expiration Date Visits Re quested Visits Authorized [id number] Closed 08/17/2021 08/17/2022 1 1 Reason for Visit * Reason Comments Follow-up Encounter Details Date Type Department Care Team (Late st Contact Info) Description 08/17/2021 11:30 AM CDT Office Visit [facility] Group - [address] [address] Jackelyn Licona MD [address] [place] [address] 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 on 08/17/2021. This is a [...] drink alcohol. Tobacco: He did smoke from 2332-6742. Chronic medical problems: Afib on eliquis CAD, [...] % 16 - 50 % 5 (L) Xxsde-3-Pwkefvaroyr 90 - 200 mg/dL 223 (H) Phenotype [...] prior to that visit. Jackelyn Licona MD Event Av Operator Division of Gastroenterology and Hepatology No [...] by mouth once daily ??? nystatin (NYSTOP) 970053 UNIT/GM powder Apply to affected area 2 [...] as needed. ??? vitamin D, ergocalciferol, (DRISDOL) 50776 UNITS capsule Take 50,000 Units by mouth every 7 days No current facility-administered medications for this visit. documented in this encounter Plan of Treatment Upcoming Encounters Date Type Department Care Team (Late st Contact Info) Description 07/09/2024 12:30 PM ESTIMATOR JEWELRY Office Visit [facility] - GI [address] [facility], [place] [address] Twin Miller MD [facility] [place] [address] 09/19/2024 2:00 PM CDT Office Visit [facility] - Orthopedic Surgery [address] [facility] [place] [address] Larry Alexander MD 1031 [facility] 280 [place] [address] Scheduled Orders Name Type Priority Associated Diagnoses [...] DATE/TIME OF EXAM: ??02/23/2022 10:41 AM, LOCATION ??[facility] INDICATION: K75.81: Liver cirrhosis secondary to [...] DATE/TIME OF EXAM: 02/23/2022 10:41 AM, LOCATION [facility] INDICATION: K75.81: Liver cirrhosis secondary to [...] acute cholecystitis. Dictated by Julienne Son MD (president & ceo [employer]). I, Dr. HUBER CHAMBERS have personally reviewed [...] acute cholecystitis. Dictated by Julienne Son MD (president & ceo [employer]). I, Dr. HUBER CHAMBERS have personally reviewed [...] documented as of this encounter Care Teams Art Coordinator Relationship Specialty Start Date End Date Briana Medeiros MD [address] [place] [address] PCP - General 02/15/18 02/22/22 documented as of this encounter
--- OUTSIDE RECORDS SUMMARY | 2024-05-25 03:00 | XMS_ITS | Encounter Summary ---
Author Organization [facility] Address [address] [place] [address] Care Team Providers Care Corporate Meeting Planner Name Role Phone Unknown, Provider Primary Care Provider Unavaila ble Reason for Visit * Reason Comments Refill Request Encounter Details Date Type Department Care Team (Late st Contact Info) Description 12/02/2022 Refill [facility] - [address] [phone] Jackelyn Licona MD [address] [place] [address] Refill Request Social History Tobacco Use Types [...] Info) Description 07/09/2024 12:30 PM DIRECTOR OF ANALYTICS Office Visit [facility] - GI [address] [facility] [place] [address] Twin Miller MD 1225 [facility] 2L [place] [address] 09/19/2024 2:00 PM CDT [facility] Visit [facility] - Orthopedic Surgery 10[address] [place] [address] Larry Alexander MD 10[address] [facility] 280 [place] [address] documented as of this encounter Goals Goal [...] documented as of this encounter Care Teams Corporate Meeting Planner Relationship Specialty Start Date End Date Unknown, Provider PCP - General 08/23/22 10/12/23 documented as of this encounter
--- OUTSIDE RECORDS SUMMARY | 2024-05-25 03:00 | XMS_ITS | Encounter Summary ---
Author Organization [facility] Address [address] [facility] [place] [address] Care Team Providers Care Vest Finisher Name Role Phone Unknown, Provider Primary Care Provider Unavaila ble Reason for Visit * Reason Comments Refill Request Encounter Details Date Type Department Care Team (Late st Contact Info) Description 10/31/2022 Refill [facility] - [address] [phone] Jackelyn Licona MD [address] [place] [address] Refill Request Social History Tobacco Use Types [...] st Contact Info) Description 07/09/2024 12:30 PM EXPEDITER SERVICE ORDER Office Visit [facility] - GI [address] [facility], [place] [address] Twin Miller MD [facility] [place] [address] 09/19/2024 2:00 PM CDT Office Visit [facility] - Orthopedic Surgery [address] [place] [address] Larry Alexander MD [address] [facility] 280 [place] [address] documented as of this encounter Goals Goal [...] documented as of this encounter Care Teams Vest Finisher Relationship Specialty Start Date End Date Unknown, Provider PCP - General 08/23/22 10/12/23 documented as of this encounter
--- OUTSIDE RECORDS SUMMARY | 2024-05-25 03:00 | XMS_ITS | Encounter Summary ---
Author Organization [facility] Address [address] [facility] [place] [address] Care Team Providers Care Home Economics Teacher Name Role Phone Briana Medeiros MD Primary Care Provider [phone] Encounter Details Date Type Department Care Team (Late st Contact Info) Description 05/14/2022 Orders Only [facility] - GI [address] [facility], [place] [address] Kimberly Lacy PA-C [address] [place] [address] 3L [place] [address] Liver cirrhosis secondary to RAYGOZA [...] st Contact Info) Description 07/09/2024 12:30 PM VACATION PLANNER Office Visit [facility] - GI [address] [facility], [place] [address] Twin Miller MD [facility] [place] [address] 09/19/2024 2:00 PM CDT Office Visit [facility] - Orthopedic Surgery [address] [place] [address] Larry Alexander MD 10[address] [facility] 280 [place] [address] documented as of this encounter Goals Goal [...] Diagnosis Comments PT-INR Routine 05/13/2022 11:41 AM VACATION PLANNER 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 0.9-1.1 Moderate-intensity Warfarin Therapy 2.0-3.0 Higher-intensity Warfarin Therapy ?? 3.0-4.0 PT 11.1 9.0 - 11.5 sec [facility] Comment: For additional information, please refer to http://education.[employer]/faq/AGX001 (This link is being provided for informational/ educational purposes only.) Test Performed at: [facility] ??[phone] DORIAN CRUZ MD Blood BLOOD SPECIMEN / Unknown 05/13/2022 11:41 AM VACATION PLANNER 05/13/2022 11:41 AM VACATION PLANNER Kimberly Lacy PA-C LAB - COAGULATI ON ORDERABLES [address] [address] * (ABNORMAL) CBC WITH DIFFERENTIAL (05/13/2022 11:41 AM VACATION PLANNER) [facility] White Blood Cell Count 8.5 3.8 - [...] 0.9 % [facility] Comment: Test Performed at: [facility] [address] [place], [place] ??[address] ROSS LOPEZ DO,MPH Blood BLOOD SPECIMEN / Unknown 05/13/2022 11:41 AM VACATION PLANNER 05/13/2022 11:41 AM VACATION PLANNER Kimberly Lacy PA-C LAB - HEMATOLOG Y ORDERABLES [facility] [address] [place] [address] * (ABNORMAL) COMPREHENSIVE METABOLIC PANEL (05/13/2022 11:41 AM VACATION PLANNER) Glucose 117(H) 65 - 99 mg/dL [facility] [...] 46 U/L [facility] Comment: Test Performed at: [facility] [id number] [place] [address] ??[phone] ROSS LOPEZ DO,MPH Blood BLOOD SPECIMEN / Unknown 05/13/2022 11:41 AM VACATION PLANNER 05/13/2022 11:41 AM VACATION PLANNER Kimberly Lacy PA-C LAB - CHEMISTRY ORDERABLES 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
--- OUTSIDE RECORDS SUMMARY | 2024-05-25 03:00 | XMS_ITS | Encounter Summary ---
Author Organization [facility] Address [address] [facility] [place] [address] Care Team Providers Care Fabric Designer Name Role Phone Unknown, Provider Primary Care [...] [address] [place] [address] [facility] Gi [address] [place] [address] Referral ID Status Reason Start Date Expiration Date Visits Re quested Visits Authorized [id number] Closed 03/21/2023 03/20/2024 1 1 * Radiology [...] [address] [place] [address] [facility] [address] [place] [address] Referral ID Status Reason Start Date Expiration Date Visits Re quested Visits Authorized [id number] Closed 03/21/2023 03/20/2024 1 1 Reason for Visit * Reason Comments Cirrhosis Encounter Details Date Type Department Care Team (Latest Contact Info) Description 03/21/2023 11:30 AM CDT Office Visit [facility] - GI [facility], [place] [address] Twin Miller MD [facility]5 [facility] 2L [place] [address] Acute gastric ulcer with hemorrhage (Primary Dx); [...] saw Mr. Keys in [facility] at [facility] today for follow up visit regarding: Past [...] Since last visit, he was admitted to [facility] x 2. First admission was for COPD exacervation. Second admission (discharged last Tuesday) was for LE edema L>R, treated as cellulitis. Since discharge, his right leg has started to swell. ?? Alcohol: Does not drink alcohol. Tobacco: He did smoke from 3755-1942. ?? Chronic medical problems: Afib on eliquis [...] tablet by mouth once daily ??? nystatin 009060 UNIT/GM cream - BACITRACIN ointment 50:50 CREA [...] [facility] ??? EGD Twin Miller MD, FAASLD Entry Level Project Coordinatorcontracts officer IM/GI Department [facility] documented in this encounter Miscellaneous Notes * Addendum Note - Cheri Clark RN - 03/21/2023 12:35 PM CDTAddended by: CHERI CLAKR on: 03/21/2023 12:35 PM Modules accepted: Orders documented in this encounter Plan of Treatment Upcoming Encounters Date Type Department Care Team (Late st Contact Info) Description 07/09/2024 12:30 PM GLAZE SPRAYER Office Visit [facility] - GI [address] [place] [address], [facility] [place] [address] Twin Miller MD [address] [place] [address] [place] [address] 09/19/2024 2:00 PM CDT Office Visit [facility] - Orthopedic Surgery [facility]1 [place] [address] Larry Alexander MD [address] [facility] 280 [place] [address] Scheduled Orders Name Type Priority Associated Diagnoses [...] DATE/TIME OF EXAM: ??04/02/2024 12:19 PM, LOCATION ??[facility] INDICATION: K75.81: Liver cirrhosis secondary to [...] DATE/TIME OF EXAM: 04/02/2024 12:19 PM, LOCATION [facility] INDICATION: K75.81: Liver cirrhosis secondary to [...] documented as of this encounter Care Teams Fabric Designer Relationship Specialty Start Date End Date Unknown, Provider PCP - General 08/23/22 10/12/23 documented as of this encounter
--- OUTSIDE RECORDS SUMMARY | 2024-05-25 03:00 | XMS_ITS | Encounter Summary ---
Author Organization [facility] Address [address] [place] [address] Care Team Providers Care Turpentine Farmer Name Role Phone Unknown, Provider Primary Care Provider Unavaila ble Reason for Visit * Reason Comments Refill Request Encounter Details Date Type Department Care Team (Late st Contact Info) Description 11/22/2022 Refill [facility] - [address] [phone] Jackelyn Licona MD [address] [place] [address] Refill Request Social History Tobacco Use Types [...] st Contact Info) Description 07/09/2024 12:30 PM STEWARD/STEWARDESS DINING ROOM Office Visit [facility] - GI [address] [facility], [place] [phone] Twin Miller MD [address] [facility] 2L [place] [address] 09/19/2024 2:00 PM CDT [facility] Visit [facility] - Orthopedic Surgery [address] [facility] [place] [address] Larry Alexander MD 10[address] [facility] 280 [place] [address] documented as of this encounter Goals Goal [...] documented as of this encounter Care Teams Turpentine Farmer Relationship Specialty Start Date End Date Unknown, Provider PCP - General 08/23/22 10/12/23 documented as of this encounter
--- OUTSIDE RECORDS SUMMARY | 2024-05-25 03:00 | XMS_ITS | Encounter Summary ---
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 Us [address] [place] [address] Referral ID Status Reason Start Date Expiration Date Visits Re quested Visits Authorized [id number] Closed 02/23/2022 02/23/2023 1 1 Reason for Visit * Radiology Services (Routine) - Closed Specialty Diagnoses / Procedures Referred By Contac t Referred To Contact Ultrasound Diagnoses Liver cirrhosis secondary to RAYGOZA (HCC) Procedures US ABDOMEN LIMITED Kimberly Lacy PA-C [address] [facility] 3L [place] [address] [facility] Us [address] [place] [address] Referral ID Status Reason Start Date Expiration Date Visits Re quested Visits Authorized [id number] Closed 02/23/2022 02/23/2023 1 1 Encounter Details Date Type Department Care Team (Latest Contact Info) Description 08/23/2022 10:51 AM CDT - 08/23/2022 8:27 PM CDT Hospital Encounter [facility] [address] [place] [address] Kimberly Lacy PA-C [address] [facility] 3L [place] [address] Discharge Disposition: Home or Self Care Social [...] by mouth 2 times daily 10/12/2023 nystatin 008016 UNIT/GM cream - BACITRACIN ointment 50:50 CREA [...] as needed. 10/12/2023 vitamin D, ergocalciferol, (DRISDOL) 99172 UNITS capsuleIndications:Othe r cirrhosis of liver (HCC) Take 50,000 Units by mouth every 7 days 0 02/02/2018 03/21/2023 documented as of this encounter Plan of Treatment Upcoming Encounters Date Type Department Care Team (Late st Contact Info) Description 07/09/2024 12:30 PM BATCH TESTER Office Visit [facility] - GI [address] [place] [address], [place] [address] Twin Miller MD [address] [place] [address] [place] [address] 09/19/2024 2:00 PM CDT Office Visit [facility] - Orthopedic Surgery [facility]1 [place] [phone] Larry Alexander MD [address] [place] [address] 280 [place] [address] documented as of this encounter Goals Goal [...] [place] (resident). > Dictated by River [place] (Trip Follower) 08/23/2022 11:56 AM I, BLAISE BOWENS MD have personally reviewed and interpreted this examination/study. > Interpreting Provider: BLAISE BOWENS MD on 08/23/2022 11:58 AM Narrative 08/23/2022 11:58 AM CDT PROCEDURE: ??US ABDOMEN LIMITED, DATE/TIME OF EXAM: ??08/23/2022 10:51 AM, LOCATION ??[facility] INDICATION: K75.81: Liver cirrhosis secondary to [...] DATE/TIME OF EXAM: 08/23/2022 10:51 AM, LOCATION [facility] INDICATION: K75.81: Liver cirrhosis secondary to [...] [place] (resident). > Dictated by River [place] (Trip Follower) 08/23/2022 11:56 AM IBLAISE MD have personally [...] documented as of this encounter Care Teams Associate Professor Of Anthropology Relationship Specialty Start Date End Date Unknown, Provider PCP - General 08/23/22 10/12/23 documented as of this encounter
--- OUTSIDE RECORDS SUMMARY | 2024-05-25 03:00 | XMS_ITS | Encounter Summary ---
Author Organization [facility] Address [address] [place] [address] Care Team Providers Care Cfo Controller Name Role Phone Briana Medeiros MD Primary Care Provider [phone] Encounter Details Date Type Department Care Team (Late st Contact Info) Description 08/17/2021 Orders Only [facility] - [address] [facility], [place] [address] Jackelyn Licona MD [address] [place] [phone] Liver cirrhosis secondary to RAYGOZA (HCC); Lower [...] st Contact Info) Description 07/09/2024 12:30 PM HELIX COIL WINDER Office Visit [facility] - GI [address] [facility], [place] [address] Twin Miller MD [facility] [place] [address] 09/19/2024 2:00 PM CDT Office Visit [facility] - Orthopedic Surgery [address] [place] [address] Larry Alexander MD [address] [facility] 280 [place] [address] documented as of this encounter Goals Goal [...] documented as of this encounter Care Teams Cfo Controller Relationship Specialty Start Date End Date Briana Medeiros MD [address] [place], [place] [phone] PCP - General 02/15/18 02/22/22 documented as of this encounter
--- OUTSIDE RECORDS SUMMARY | 2024-05-25 03:00 | XMS_ITS | Encounter Summary ---
Author Organization [facility] Address [address] [facility] [place] [address] Care Team Providers Care Railroad Car Cleaning Supervisor Name Role Phone Unknown, Provider Primary Care Provider Unavaila ble Reason for Referral * Radiology Services (Routine) - Closed Specialty Diagnoses / Procedures Referred By Contac t Referred To Contact Ultrasound Diagnoses Liver cirrhosis secondary to MICHAUD (HCC) Lower extremity edema Cirrhosis of liver without ascites, unspecified hepatic cirrhosis type (HCC) Procedures US ABDOMEN LIMITED Jackelyn Licona MD [address] [place] [address] [facility] [address] [place] [address] Referral ID Status Reason Start Date Expiration Date Visits Re quested Visits Authorized [id number] Closed 08/23/2022 08/23/2023 1 1 Reason for Visit * Reason Comments Michaud F/u Encounter Details Date Type Department Care Team (Late st Contact Info) Description 08/23/2022 12:30 PM CDT Office Visit [facility] - GI [address] [facility], [place] [address] Kimberly Lacy PA-C [address] [place] [address] [facility] [place] [address] Jackelyn Licona MD [address] [place] [address] Liver cirrhosis secondary to MICHAUD (HCC) (Primary [...] Licona MD - 08/23/2022 12:22 PM CDT [facility] Jackelyn Licona MD Referring Provider: Provider Unknown PCP: Napoleon Birmingham MD Interval history and subjective concerns: I had the pleasure of meeting Mason Keys at the [facility] on 08/23/2022. This is a [...] Since last visit, he was admitted to [facility] x 2. First admission was for COPD exacervation. Second admission (discharged last Tuesday) was for LE edema L>R, treated as cellulitis. Since discharge, his right leg has started to swell. Alcohol: Does not drink alcohol. Tobacco: He did smoke from 4999-9463. Chronic medical problems: Afib on eliquis CAD, [...] % 16 - 50 % 5 (L) Wdrlh-6-Aqyzsyeipdy 90 - 200 mg/dL 223 (H) Phenotype [...] prior to that visit. Jackelyn Licona MD Fruit Checker Division of Gastroenterology and Hepatology No orders [...] tablet by mouth once daily ??? nystatin 209281 UNIT/GM cream - BACITRACIN ointment 50:50 CREA [...] as needed. ??? vitamin D, ergocalciferol, (DRISDOL) 63952 UNITS capsule Take 50,000 Units by mouth every 7 days (Patient not taking: Reported on 08/23/2022) No current facility-administered medications for this visit. documented in this encounter Plan of Treatment Upcoming Encounters Date Type Department Care Team (Late st Contact Info) Description 07/09/2024 12:30 PM DRY CLEANER Office Visit [facility] - GI [address] [place] [address], [facility] [place] [address] Twin Miller MD [address] [place] [address] [place] [address] 09/19/2024 2:00 PM CDT Office Visit [facility] - Orthopedic Surgery [address] [place] [address] Larry Alexander MD [facility] 280 [place] [address] Scheduled Orders Name Type Priority Associated Diagnoses [...] OF EXAM: ??03/21/2023 10:01 AM, LOCATION ??[facility] INDICATION: K75.81: Liver cirrhosis secondary to MICHAUD [...] OF EXAM: 03/21/2023 10:01 AM, LOCATION [facility] INDICATION: K75.81: Liver cirrhosis secondary to MICHAUD [...] documented as of this encounter Care Teams Railroad Car Cleaning Supervisor Relationship Specialty Start Date End Date Unknown, Provider PCP - General 08/23/22 10/12/23 documented as of this encounter
--- OUTSIDE RECORDS SUMMARY | 2024-05-25 03:00 | XMS_ITS | Encounter Summary ---
Author Organization [facility] Address [address] [facility] [place] [address] Care Team Providers Care Interactive Marketing Strategist Name Role Phone Briana Medeiros MD Primary Care Provider [phone] Reason for Referral * Radiology Services (Routine) - Closed Specialty Diagnoses / Procedures Referred By Contac t Referred To Contact Ultrasound Diagnoses Liver cirrhosis secondary to RAYGOZA (HCC) Lower extremity edema Cirrhosis of liver without ascites, unspecified hepatic cirrhosis type (HCC) Screening of cancer Procedures US ABDOMEN LIMITED Jackelyn Licona MD [address] [place] [address] [place] [address] [place] [address] Referral ID Status Reason Start Date Expiration Date Visits Re quested Visits Authorized [id number] Closed 08/17/2021 08/17/2022 1 1 Reason for Visit * Radiology Services (Routine) - Closed Specialty Diagnoses / Procedures Referred By Contac t Referred To Contact Ultrasound Diagnoses Liver cirrhosis secondary to RAYGOZA (HCC) Lower extremity edema Cirrhosis of liver without ascites, unspecified hepatic cirrhosis type (HCC) Screening of cancer Procedures US ABDOMEN LIMITED Jackelyn Licona MD [address] [place] [address] [facility] Us [address] [place] [address] Referral ID Status Reason Start Date Expiration Date Visits Re quested Visits Authorized [id number] Closed 08/17/2021 08/17/2022 1 1 Encounter Details Date Type Department Care Team (Late st Contact Info) Description 02/23/2022 10:41 AM CDT - 02/23/2022 11:59 PM CDT Hospital Encounter [facility] [address] [place] [address] Jackelyn Licona MD [address] [place] [address] Discharge Disposition: Home or Self Care Social [...] as needed. 10/12/2023 vitamin D, ergocalciferol, (DRISDOL) 19308 UNITS capsuleIndications:Othe r cirrhosis of liver (HCC) Take 50,000 Units by mouth every 7 days 0 02/02/2018 03/21/2023 documented as of this encounter Plan of Treatment Upcoming Encounters Date Type Department Care Team (Late st Contact Info) Description 07/09/2024 12:30 PM HOT STRIP FINISHER Office Visit [facility] - GI [address] [place] [address], [place] [address] Twin Miller MD [address] [place] [address] [place] [address] 09/19/2024 2:00 PM CDT Office Visit [facility] - Orthopedic Surgery [facility]1 [place] [phone] Larry Alexander MD [facility]1 [facility] 280 [place] [address] documented as of this encounter Goals Goal [...] EXAM: ??02/23/2022 10:41 AM, LOCATION ??[facility] INDICATION: K75.81: Liver cirrhosis secondary to [...] EXAM: 02/23/2022 10:41 AM, LOCATION [facility] INDICATION: K75.81: Liver cirrhosis secondary to [...] documented as of this encounter Care Teams Interactive Marketing Strategist Relationship Specialty Start Date End Date Briana Medeiros MD [address] [place], [place] [id number] PCP - General 02/23/22 06/13/22 documented as of this encounter
--- OUTSIDE RECORDS SUMMARY | 2024-05-25 03:00 | XMS_ITS | Encounter Summary ---
Author Organization [facility] Address [address] [facility] [place] [address] Care Team Providers Care Manager Corporate Communications Name Role Phone Unknown, Provider Primary Care Provider Unavaila ble Reason for Visit * Auth/Cert (Routine) Specialty Diagnoses / Procedures Referred By Contac t Referred To Contact Diagnoses Nonalcoholic steatohepatitis (RAYGOZA) Acute gastric ulcer with hemorrhage Procedures [facility] EGD FLEX TRANSORAL DX EGD w/ elbesh---stay on eliquis for procedure ESOPHAGOGASTRODUODENOSCOPY (EGD) DIAGNOSTIC Referral ID Status Reason Start Date Expiration Date Visits Re quested Visits Authorized [id number] 1 1 Encounter Details Date Type Department Care Team (Late st Contact Info) Description 05/12/2023 2:28 PM NETWORK OPERATIONS SPECIALIST Anesthesia Event [facility] ENDOSCOPY [address] [place] [address] Mónica Gold MD 12[address] [facility] [place] [address] Julissa Reyes Anes Asst [address] [facility] [place] [address] Anesthesia Record Procedure Summary Procedure Name Responsible [...] Jaylyn Zaldivar RN 05/12/23 1515 by Glendy Fraknel RN documented in this encounter Social History [...] Care NOTABLE EVENTS: No notable events documented. ORK OPERATIONS SPECIALIST * Mónica Gold MD - 05/12/2023 2:17 [...] Anesthetic Plan was discussed with the anesthesiologist, CANDLE MAKING SUPERVISOR and marketing assistant manager. BMI, Height, Weight Tobacco History Estimated body [...] red peppers ??? Scopace [Scopolamine] Other and POULTRY VETERINARIAN Dysfunction delirium ??? Tobramycin Eye Itching red around the eyes, puffy, itchy Relevant Problems Problem List: Patient Active Problem List Diagnosis Date Noted ??? Benign prostatic hyperplasia without lower urinary tract symptoms 06/06/2019 Priority: Not Prioritized ??? 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 Liver cirrhosis secondary to RAYGOZA ([facility]/HCC) 08/17/2018 Priority: Not Prioritized US 05/2018, no lesions EGD 2017, no varices 08/26/20 Fibroscan not technically possible. ??? Venous stasis dermatitis of both lower extremities 02/25/2017 Priority: Not Prioritized ??? Hypoxemia 09/06/2017 ??? Pleural effusion on left 08/29/2017 ??? Methicillin resistant Staphylococcus aureus infection 08/29/2017 ??? Extradural and subdural abscess, unspecified 08/29/2017 ??? Acute respiratory failure with hypoxia ([facility]) 08/29/2017 ??? Discitis of lumbar region 08/29/2017 ??? Acute kidney failure ([facility]) 08/29/2017 ??? Sepsis ([facility]) 08/27/2017 ??? Severe sepsis without septic shock (CODE) ([facility]) 08/27/2017 ??? Acute embolism and thrombosis of deep vein of lower extremity ([facility]) 07/25/2017 ??? Bacteremia 07/25/2017 ??? Vitamin D deficiency 07/08/2017 ??? Local infection of skin and subcutaneous tissue 04/18/2017 ??? Unspecified staphylococcus as the cause of diseases classified elsewhere 04/18/2017 ??? Chronic atrial fibrillation ([facility]/HCC) 04/06/2017 ??? Other specified anemias 04/06/2017 [...] ??? S/P PICC central line placement 02/13/2019 [facility] VAT R basilic ??? Seizures (CMS/HCC) ??? [...] ABSCESS ??? Tracheostomy N/A 09/13/2017 N/A; TRACHEOSTOMY HEALTH AND SAFETY INSTRUCTOR Status: No LMP for male patient. unknown [...] AST 27 (03/08/2023) Bilirubin Total 0.6 (03/08/2023) ORK OPERATIONS SPECIALIST documented in this encounter Miscellaneous Notes * [...] red peppers ??? Scopace [Scopolamine] Other and POULTRY VETERINARIAN Dysfunction delirium ??? Tobramycin Eye Itching red [...] from the receiving PACUteam. Negar Graham Asst ORK OPERATIONS SPECIALIST documented in this encounter Plan of Treatment Upcoming Encounters Date Type Department Care Team (Late st Contact Info) Description 07/09/2024 12:30 PM NETWORK OPERATIONS SPECIALIST Office Visit [facility] - GI [address] [facility], [place] [address] Twin Miller MD [facility] [place] [address] 09/19/2024 2:00 PM CDT Office Visit [facility] - Orthopedic Surgery [address] [place] [address] Larry Alexander MD 10[address] [facility] 280 [place] [address] documented as of this encounter Goals Goal [...] CONTINUOUS PRN, Starting on Kellen 05/12/23 at 1428, Until Kellen 05/12/23 at 1447, Anesthesia Intra-op $ New Bag/Syringe 05/12/2023 2:28 PM NETWORK OPERATIONS SPECIALIST lidocaine HCl (PF) (Xylocaine MPF) 2 % injection Intravenous, PRN, Starting on Kellen 05/12/23 at 1431, Until Kellen 05/12/23 at 1447, Anesthesia Intra-op $ Given 05/12/2023 2:31 PM NETWORK OPERATIONS SPECIALIST 100 mg propofol (Diprivan) infusion Intravenous, CONTINUOUS PRN, Starting on Kellen 05/12/23 at 1431, Until Kellen 05/12/23 at 1447, Anesthesia Intra-op Rate Change 05/12/2023 2:34 PM NETWORK OPERATIONS SPECIALIST 100 mcg/kg/min 66.66 mL/hr $ New Bag/Syringe 05/12/2023 2:31 PM NETWORK OPERATIONS SPECIALIST 150 mcg/kg/min 99 .99 mL/hr documented in this encounter Additional Health Concerns Infection Onset Date Last Indicated Resolved Time 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
--- OUTSIDE RECORDS SUMMARY | 2024-05-25 03:00 | XMS_ITS | Encounter Summary ---
Author Organization [facility] Address [address] [facility] [place] [address] Care Team Providers Care Chocolate Temperer Name Role Phone Briana Medeiros MD Primary Care Provider [phone] Encounter Details Date Type Department Care Team (Late Contact Info) Description 08/03/2021 Orders Only [facility] GI [address] [place] [address] Jackelyn Licona MD [address] [place] [address] Social History Tobacco Use Types [...] st Contact Info) Description 07/09/2024 12:30 PM TOOLER Office Visit [facility] - GI [address] [facility], [place] [address] Twin Miller MD [facility] [facility] 2L [facility] [place] [address] 09/19/2024 2:00 PM CDT Office Visit [facility] - Orthopedic Surgery [address] [facility] [place] [address] Larry Alexander MD [address] [facility] [address] [place] [address] documented as of this encounter Goals Goal [...] FETOPROTEIN BLOOD TUMOR MARKER 08/03/2021 10:25 AM TOOLER PT-INR 08/03/2021 10:25 AM TOOLER CBC W/O DIFFERENTIAL 08/03/2021 10:25 AM TOOLER COMPREHENSIVE METABOLIC PANEL 08/03/2021 10:25 AM TOOLER documented in this encounter Results * ALPHA FETOPROTEIN BLOOD TUMOR MARKER (08/03/2021 10:25 AM TOOLER) [facility] Alpha-Fetoprotei n Tumor Marker 1.6 <6.1 ng/mL [facility] Comment: This test was performed using the Flex [place] chemiluminescent method. Values obtained from different assay methods cannot be used interchangeably. AFP levels, regardless of value, should not be interpreted as absolute evidence of the presence or absence of disease. Test Performed at: [address] ??[phone] LAURA REYES MD 08/03/2021 10:2 5 AM TOOLER 08/03/2021 10:28 AM TOOLER Jackelyn Licona MD LAB - CHEMISTRY ORDE RABLES Performing Organization Address [facility] Co de Phone Number [address] [address] * PT-INR (08/03/2021 10:25 AM TOOLER) [facility] INR 1.1 [facility] Comment: Reference Range ? 0.9-1.1 Moderate-intensity Warfarin Therapy 2.0-3.0 Higher-intensity Warfarin Therapy ?? 3.0-4.0 PT 10.8 9.0 - 11.5 sec [facility] Comment: For additional information, please refer to http://education.[employer]/faq/QJX891 (This link is being provided for informational/ educational purposes only.) Test Performed at: [address] ??[phone] DORIAN CRUZ MD 08/03/2021 10:2 5 AM TOOLER 08/03/2021 10:28 AM TOOLER Jackelyn Licona MD LAB - COAGULATION OR DERABLES Performing Organization Address [facility] de Phone Number [address] [address] * (ABNORMAL) CBC W/O DIFFERENTIAL (08/03/2021 10:25 AM TOOLER) [facility] White Blood Cell Count 9.3 3.8 - [...] 12.5 fL [facility] Comment: Test Performed at: [facility] [address] [place], [place] ??[address] ROSS LOPEZ DO,MPH 08/03/2021 10:2 5 AM TOOLER 08/03/2021 10:28 AM TOOLER Jackelyn Licona MD LAB - HEMATOLOGY ORD ERABLES [facility] [address] [place] [address] * (ABNORMAL) COMPREHENSIVE METABOLIC PANEL (08/03/2021 10:25 AM TOOLER) Pathologist [facility] Glucose 124(H) 65 - 99 mg/dL [facility] [...] approximately 13% higher for people identified as -Pakistani. 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
--- OUTSIDE RECORDS SUMMARY | 2024-05-25 03:00 | XMS_ITS | Encounter Summary ---
Author Organization [facility] Address [address] [facility] [place] [address] Care Team Providers Care Master Cook Name Role Phone Unknown, Provider Primary Care Provider Unavaila ble Reason for Visit * Auth/Cert (Routine) Specialty Diagnoses / Procedures Referred By Contac t Referred To Contact Diagnoses Nonalcoholic steatohepatitis (RAYGOZA) Acute gastric ulcer with hemorrhage Procedures RI ED EGD FLEX TRANSORAL DX EGD w/ elbesh---stay on eliquis for procedure ESOPHAGOGASTRODUODENOSCOPY (EGD) DIAGNOSTIC Referral ID Status Reason Start Date Expiration Date Visits Re quested Visits Authorized [id number] 1 1 Encounter Details Date Type Department Care Team (Late st Contact Info) Description 05/12/2023 2:00 PM PARING MACHINE OPERATOR - 05/12/2023 2:30 PM [facility] Surgery [facility] ENDOSCOPY [address] [place] [address] Twin Miller MD [address] [place] [address] EGD w/ elbesh---stay on eliquis for procedure Surgery Details Date/Time Status Location OR Service Patient Class Case Class Case Type Trauma Case? 05/12/2023 2:00 PM Posted [facility] Endoscopy ENDO 2 Gastroenterology Surgery Day Care [...] egd Received: Today Cheri Clark, RN P [facility] Schedulers - Endoscopy Pool Dillan [...] Comments Blood Pressure 125/73 05/12/2023 1:55 PM PARING MACHINE OPERATOR Pulse 79 05/12/2023 1:55 PM PARING MACHINE OPERATOR Temperature 36.6 ??C (97.9 ??F) 05/12/2023 1:41 PM CS T Respiratory Rate 21 05/12/2023 1:55 PM PARING MACHINE OPERATOR Oxygen Saturation 94% 05/12/2023 1:55 PM PARING MACHINE OPERATOR Inhaled Oxygen Concentration - - Weight 111.1 kg (245 lb) 05/12/2023 1:48 PM PARING MACHINE OPERATOR Height 180.3 cm (5' 11 ) 05/12/2023 1:48 PM PARING MACHINE OPERATOR Body Mass Index 34.17 05/12/2023 1:48 PM PARING MACHINE OPERATOR documented in this encounter Functional [...] Glendy Frankel RN - 05/12/2023 2:58 PM PARING MACHINE OPERATOR Images from the original note were not [...] ask them during your visits. ?? Copyright [employer] 2020 Information is for End User's use only and may not be sold, redistributed or otherwise used for commercial purposes. All illustrations and images included in CareNotes?? are the copyrighted property of A.D.A.M., Inc. or [email or web address] The above information is an neuropsychiatric aide only. It is not intended as medical advice for individual conditions or treatments. Talk to your doctor, nurse or pharmacist before following any medical regimen to see if it is safe and effective for you. NG MACHINE OPERATOR documented in this encounter Medications at Time [...] (Lidoderm) 5 % patch 01/25/2023 11/03/2023 nystatin 939782 UNIT/GM cream - BACITRACIN ointment 50:50 CREA [...] of the Body, eyes 10/12/2023 Spacer/Aero-Holding Chambers ([facility]) MISC as directed 11/17/2020 10/12/2023 triamcinolone [...] Procedure: Cirrhosis, variceal screening History: Briefly, Mason Kesy is a 72 year old year old [...] [facility] VAT R basilic ??? Seizures (CMS/HCC) ??? Squamous cell carcinoma ??? VRE (vancomycin resistant enterococcus) culture positive 04/29/2019 rectal swab+ Allergies Allergen Reactions ??? Penicillins Skin Reactions and Swelling ??? Levaquin [Levofloxacin] Eye Itching red around the eyes , puffy, itchy ??? Green [Peppers] GI Discomfort Green and red peppers ??? Scopace [Scopolamine] Other and TESTER OPERATOR Dysfunction delirium ??? Tobramycin Eye Itching red [...] tablet by mouth once daily ??? nystatin 019639 UNIT/GM cream - BACITRACIN ointment 50:50 CREA [...] are no changes. Twin Miller MD, FAASLD Rubber Downsupervising fire marshal IM/GI Department [facility] 05/12/2023 1:12 PM NG MACHINE OPERATOR documented in this encounter Plan of Treatment Upcoming Encounters Date Type Department Care Team (Late st Contact Info) Description 07/09/2024 12:30 PM PARING MACHINE OPERATOR Office Visit [facility] - [address] [place] [phone] Twin Miller MD [address] [place] [address] 09/19/2024 2:00 PM CDT Office Visit [facility] - Orthopedic Surgery [address] [facility] [place] [phone] Larry Alexander MD [address] [place] [address] Scheduled Orders Name Type Priority Associated Diagnoses [...] Procedure Name Priority Date/Time Associated Diagnosis Comments RI ED EGD FLEX TRANSORAL DX 05/12/2023 2:33 PM PARING MACHINE OPERATOR Nonalcoholic steatohepatitis (RAYGOZA) Acute gastric ulcer with hemorrhage Special Needs egd Received: Today Cheri Clark, RN P [facility] Schedulers - Endoscopy Pool [facility]. This patient is in need of an [...] 12:24 PM EGD Routine 05/12/2023 2:04 PM PARING MACHINE OPERATOR documented in this encounter Results * EGD (05/12/2023 2:04 PM PARING MACHINE OPERATOR) Report Endoscopy POC Endoscopy Department Report _ [...] ?- No specimens collected as patient on [employer]. Recommendation: ? - Patient has a contact [...] Procedure Code(s): ? --- Professional --- ? 39653, Esophagogastroduo denoscopy, flexible, transoral; diagnostic, ? including collection of specimen(s) by brushing or washing, when ? 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 All rights reserved. The codes documented in this report are preliminary and upon pre coder review may be revised to meet current compliance requirements. Twin Miller, 05/12/2023 2:44:06 PM Note Initiated On: 05/12/2023 2:04 PM Number of Addenda: 0 ? [facility] ? [address] [place] [address] [facility] PROVATION 05/12/2023 2:04 PM PARING MACHINE OPERATOR Twin Miller MD GI PROCEDURE O RDERABLES [facility] documented in this encounter Visit [...] Recently Administered Medications Times are shown in PARING MACHINE OPERATOR. Scheduled Medication Order 05/10/2023 05/11/2023 05/12/2023 0.9% [...] documented as of this encounter Care Teams Master Cook Relationship Specialty Start Date End Date Unknown, Provider PCP - General 08/23/22 10/12/23 documented as of this encounter
--- OUTSIDE RECORDS SUMMARY | 2024-05-25 03:00 | XMS_ITS | Encounter Summary ---
Author Organization [facility] Address [address] [facility] [place] [address] Care Team Providers Care Clay Carman Name Role Phone Unknown, Provider Primary Care Provider Unavaila ble Reason for Visit * Reason Comments Referral Pt [facility] to r/o dvt in RLE. RLE red, swollen, and painful. Pt recently treated for cellulitis in LLE, pt just finished course of cephalexin. Pt denies nausea, vomiting, fever, chills, diarrhea. Encounter Details Date Type Department Care Team (Late st Contact Info) Description 08/23/2022 8:28 PM CDT - 08/23/2022 10:54 PM CDT Emergency [facility] EMERGENCY DEPARTMENT [address] [place] [phone] Neo Horne MD [address] [place] [address] OF [place]ER[place] [phone] Pain of right lower extremity; Leg swelling [...] by mouth 2 times daily 10/12/2023 nystatin [id number] UNIT/GM cream - BACITRACIN ointment 50:50 CREA [...] as needed. 10/12/2023 vitamin D, ergocalciferol, (DRISDOL) 90878 UNITS capsuleIndications:Ot her cirrhosis of liver (HCC) [...] S/P PICC central line placement 02/13/2019 [facility] VAT R basilic ??? Seizures (CMS/HCC) ??? [...] red peppers ??? Scopace [Scopolamine] Other and TIMBER CRUISER Dysfunction delirium ??? Tobramycin Eye Itching red [...] tablet by mouth once daily ??? nystatin 971900 UNIT/GM cream - BACITRACIN ointment 50:50 CREA [...] as needed. ??? vitamin D, ergocalciferol, (DRISDOL) 46093 UNITS capsule Take 50,000 Units by mouth [...] S/P PICC central line placement 02/13/2019 [facility] VAT R basilic ??? Seizures (CMS/HCC) ??? [...] tablet by mouth once daily ??? nystatin 935080 UNIT/GM cream - BACITRACIN ointment 50:50 CREA [...] as needed. ??? vitamin D, ergocalciferol, (DRISDOL) 38384 UNITS capsule Take 50,000 Units by mouth every 7 days (Patient not taking: Reported on 08/23/2022) 0 Allergies Allergen Reactions ??? Penicillins Skin Reactions and Swelling ??? Levaquin [Levofloxacin] Eye Itching red around the eyes , puffy, itchy ??? Green [Peppers] GI Discomfort Green and red peppers ??? Scopace [Scopolamine] Other and TIMBER CRUISER Dysfunction delirium ??? Tobramycin Eye Itching red [...] st Contact Info) Description 07/09/2024 12:30 PM SENIOR CARE MANAGER Office Visit [facility] - GI [address] [place] [address], [place] [address] Twin Miller MD [address] [place] [address] [place] [address] 09/19/2024 2:00 PM CDT Office Visit [facility] - Orthopedic Surgery [address] [place] [phone] Larry Alexander MD [address] [facility] [address] [place] [address] documented as of this encounter Goals Goal [...] - CHEMISTRY ORDE RAISA Performing Organization Address City/[facility]/ZIP Co de Phone Number [facility] [address] [place] [address], [facility] [phone] * (ABNORMAL) ERYTHROCYTE SEDIMENTATION RATE (08/23/2022 8:24 PM CDT) Erythrocyte Sedimentation Rate Westergren 65(H) 0 - 20 MM/HR 08/23/2022 8:45 PM CDT [facility] Blood BLOOD SPECIMEN / Unknown Venipuncture / Unknown 08/23/2022 8:24 PM CDT 08/23/2022 8:32 PM CDT Neo Horne MD LAB - HEMATOLOGY ORD ERABLES [facility] [address] [place] [address], [facility] [phone] * (ABNORMAL) COMPREHENSIVE METABOLIC PANEL (08/23/2022 8:24 PM [facility]) BUN 26 7 - 26 mg/dL 08/23/2022 8:[address] [facility] Creatinine 1.60(H) 0.71 - 1.16 mg/dL 08/23/2022 8:[address] [facility] Sodium 141 136 - 145 mmol/L 08/23/2022 8:[address] [facility] Potassium 4.6(H) 3.5 - 4.5 mmol/L 08/23/2022 8:[address] [facility] Chloride 102 98 - 107 mmol/L 08/23/2022 8:[address] [facility] CO2 26 22 - 29 mmol/L 08/23/2022 8:[address] [facility] Glucose 113 70 - 115 mg/dL 08/23/2022 8:[address] [facility] Calcium 10.3(H) 8.4 - 10.2 mg/dL 08/23/2022 8:[address] [facility] Protein Total 7.3 6.0 - 8.3 g/dL 08/23/2022 8:[address] [facility] Albumin 3.7 3.4 - 5.0 g/dL 08/23/2022 8:[address] [facility] Bilirubin Total 0.6 0.2 - 1.2 mg/dL 08/23/2022 8:[address] [facility] Alkaline Phosphatase 113 40 - 150 U/L 08/23/2022 8:[address] [facility] ALT 27 5 - 55 U/L 08/23/2022 8:[address] [facility] AST 24 5 - 34 U/L 08/23/2022 8:[address] [facility] Anion Gap 18 8 - 18 08/23/2022 8:[address] [facility] BUN/Creatinine Ratio 16 7 - 23 08/23/2022 8:[address] [facility] Osmolality Calculated 298 270 - 300 mOsm/kg 08/23/2022 8:[address] [facility] Albumin/Globulin Ratio 1.0(L) 1.1 - 2.3 08/23/2022 8:[address] [facility] eGFR by CKD-EPI 45(L) >=90 mL/min/1.7 3 m2 08/23/2022 8:[address] [facility] Blood BLOOD SPECIMEN / Unknown Venipuncture / Unknown 08/23/2022 8:24 PM CDT 08/23/2022 8:32 PM CDT Neo Horne MD LAB - CHEMISTRY ROYCE KLINE [facility] Organization Address City/State/ZIP Co de Phone Number [facility] [address] [place] [address], [facility] [phone] * (ABNORMAL) CBC W AUTO DIFFERENTIAL (08/23/2022 8:24 PM CDT) WBC 7.9 3.5 - 10.5 10? 3 /uL 08/23/2022 8:[address] [facility] RBC 4.71 4.30 - 5.70 10? 6 /uL 08/23/2022 8:[address] [facility] Hemoglobin 14.1 12.0 - 17.6 g/dL 08/23/2022 8:[address] [facility] Hematocrit 44.3 35.2 - 51.7 % 08/23/2022 8:[address] [facility] MCV 94.1 80.7 - 98.3 fL 08/23/2022 8:[address] [facility] MCH 29.9 26.7 - 34.0 pg 08/23/2022 8:[address] [facility] MCHC 31.8 30.8 - 35.9 g/dL 08/23/2022 8:[address] [facility] RDW-SD 51.2(H) 36.0 - 50.0 fL 08/23/2022 8:[address] [facility] RDW-CV 14.9(H) 11.2 - 14.8 % 08/23/2022 8:[address] [facility] Platelet Count 194 150 - 400 10? 3 /uL 08/23/2022 8:[address] [facility] MPV 12.4 9.4 - 12.9 fL 08/23/2022 8:[address] [facility] nRBC Absolute 0.00 0 10? 3 /uL 08/23/2022 8:[address] [facility] nRBC Auto 0.0 0 /100 WBC 08/23/2022 8:[address] [facility] Neutrophils % 64.1 35.0 - 70.0 % 08/23/2022 8:[address] [facility] Lymphocytes % 13.0(L) 20.0 - 43.0 % 08/23/2022 8:[address] [facility] Monocytes % 13.2(H) 5.0 - 13.0 % 08/23/2022 8:[address] [facility] Eosinophils % 6.2(H) 0.0 - 6.0 % 08/23/2022 8:[address] [facility] Basophil % 1.1 0.0 - 2.0 % 08/23/2022 8:[address] [facility] Neutrophils Absolute 5.08 1.60 - 7.00 10? 3 /uL 08/23/2022 8:[address] [facility] Lymphocyte Absolute 1.03(L) 1.10 - 3.90 10? 3 /uL 08/23/2022 8:[address] [facility] Monocytes Absolute 1.05 0.26 - 1.07 10? 3 /uL 08/23/2022 8:[address] [facility] Eosinophils Absolute 0.49(H) 0.00 - 0.47 10? 3 /uL 08/23/2022 8:[address] [facility] Basophils Absolute 0.09(H) 0.00 - 0.08 10? 3 /uL 08/23/2022 8:[address] [facility] Immature Granulocytes % 2.4(H) 0.0 - 1.0 % 08/23/2022 8:[address] [facility] Immature Granulocytes Absolute 0.19 08/23/2022 8:[address] [facility] Blood BLOOD SPECIMEN / Unknown Venipuncture / Unknown 08/23/2022 8:24 PM CDT 08/23/2022 8:32 PM CDT Neo Horne MD LAB - HEMATOLOGY ORD ERABLES [facility] [address] [place] [address], [facility] [phone] * VAS RIGHT VENOUS DUPLEX LE (08/23/2022 [...] 08/23/2022 10:24 PM CDT 300 mg HYDROcodone-acetaminophen ([place]) 5-325 MG tablet 1 tablet 1 tablet, [...] - Prov ider: Stacey Raza, DONTAE) HYDROcodone-acetaminophen ([place]) 5-325 MG tablet 1 tablet (COMPLETED) 1 [...] documented as of this encounter Care Teams Clay Carman Relationship Specialty Start Date End Date Unknown, Provider PCP - General 08/23/22 10/12/23 documented as of this encounter
--- OUTSIDE RECORDS SUMMARY | 2024-05-25 03:00 | XMS_ITS | Encounter Summary ---
Author Organization [facility] Address [address] [facility] [place] [address] Care Team Providers Care Director Consumer Name Role Phone Briana Medeiros MD Primary Care Provider [phone] Encounter Details Date Type Department Care Team [...] st Contact Info) Description 07/09/2024 12:30 PM CUSHION PADDER Office Visit [facility] - GI [address] [facility], [place] [address] Twin Miller MD [facility]5 [facility] [address] [facility] [place] [address] 09/19/2024 2:00 PM CDT Office Visit [facility] - Orthopedic Surgery [address] [facility] [place] [phone] Larry Alexander MD [address] [facility] [address] [place] [address] documented as of this encounter Goals Goal [...] as of this encounter Care Teams Director Consumer Relationship Specialty Start Date End Date Briana Medeiros MD [address] [place] [address] PCP - General 02/15/18 02/22/22 documented as of this encounter
--- OUTSIDE RECORDS SUMMARY | 2024-05-25 03:00 | XMS_ITS | Encounter Summary ---
Author Organization [facility] Address [address] [place] [address] Care Team Providers Care Manager Physical Name Role Phone Unavailable Primary Care Provider Unavailabl e Encounter Details Date Type Department Care Team (Late st Contact Info) Description 08/06/2022 Orders Only [facility] - GI [address] [facility], [place] [address] Kimberly Lacy PA-C [address] [place] [address] [address] [place] [address] Liver cirrhosis secondary to RAYGOZA [...] st Contact Info) Description 07/09/2024 12:30 PM BLENDING MACHINE OPERATOR Office Visit [facility] - GI [address] [facility], [place] [address] Twin Miller MD [facility]5 [facility] 2L [place] [address] 09/19/2024 2:00 PM CDT Office Visit [facility] - [facility] [address] [facility] [place] [address] Larry Alexander MD [address] [facility] [address] [place] [address] documented as of this encounter Goals Goal [...] Diagnosis Comments PT-INR Routine 08/10/2022 12:59 PM BLENDING MACHINE OPERATOR Liver cirrhosis secondary to RAYGOZA (HCC) CBC W AUTO DIFFERENTIAL Routine 08/10/2022 12:59 PM BLENDING MACHINE OPERATOR Liver cirrhosis secondary to RAYGOZA (HCC) COMPREHENSIVE METABOLIC PANEL Routine 08/10/2022 12:59 PM BLENDING MACHINE OPERATOR Liver cirrhosis secondary to RAYGOZA (HCC) documented in this encounter Results * PT-INR (08/10/2022 12:59 PM BLENDING MACHINE OPERATOR) [facility] INR 1.1 [facility] Comment: Reference Range ? 0.9-1.1 Moderate-intensity Warfarin Therapy 2.0-3.0 Higher-intensity Warfarin Therapy ?? 3.0-4.0 PT 10.9 9.0 - 11.5 sec [facility] Comment: For additional information, please refer to http://education.[employer]/faq/RWG170 (This link is being provided for informational/ educational purposes only.) Test Performed at: [facility] ??[phone] DORIAN CRUZ MD Blood BLOOD SPECIMEN / Unknown 08/10/2022 12:59 PM BLENDING MACHINE OPERATOR 08/10/2022 12:59 PM BLENDING MACHINE OPERATOR Kimberly Lacy PA-C LAB - COAGULATI ON ORDERABLES [address] [address] * (ABNORMAL) CBC WITH DIFFERENTIAL (08/10/2022 12:59 PM BLENDING MACHINE OPERATOR) [facility] White Blood Cell Count 10.4 3.8 [...] 0.6 % [facility] Comment: Test Performed at: [facility] [address] [place], [place] ??[address] DORIAN CRUZ MD Blood BLOOD SPECIMEN / Unknown 08/10/2022 12:59 PM BLENDING MACHINE OPERATOR 08/10/2022 12:59 PM BLENDING MACHINE OPERATOR Kimberly Lacy PA-C LAB - HEMATOLOG Y ORDERABLES [facility] [address] [place] [address] * (ABNORMAL) COMPREHENSIVE METABOLIC PANEL (08/10/2022 12:59 PM BLENDING MACHINE OPERATOR) Glucose 91 65 - 99 mg/dL [facility] [...] 46 U/L [facility] Comment: Test Performed at: [facility] [address] [place], [place] ??[address] DORIAN CRUZ MD Blood BLOOD SPECIMEN / Unknown 08/10/2022 12:59 PM BLENDING MACHINE OPERATOR 08/10/2022 12:59 PM BLENDING MACHINE OPERATOR Kimberly Lacy PA-C LAB - CHEMISTRY ORDERABLES Performing Organization Address City/State/[facility] Co ny Phone Number [facility] [address] [place] [phone] documented in this encounter Visit Diagnoses Diagnosis Liver cirrhosis secondary to RAYGOZA (HCC) Other chronic nonalcoholic liver disease documented in this encounter Additional Health Concerns Infection Onset Date Last Indicated Resolved Time 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
--- OUTSIDE RECORDS SUMMARY | 2024-05-25 03:00 | XMS_ITS | Encounter Summary ---
Author Organization [facility] Address [address] [facility] [address] Care Team Providers Care Survey Superintendent Name Role Phone Briana Medeiros MD Primary Care Provider [phone] Encounter Details Date Type Department Care Team (Late Contact Info) Description 02/09/2022 Orders Only [facility] GI [address] [place] [address] Jackelyn Licona MD [address] [place] [address] Social History Tobacco Use Types [...] st Contact Info) Description 07/09/2024 12:30 PM ADHESIVE BONDING MACHINE OPERATOR Office Visit [facility] - GI [address] [facility], [place] [address] Twin Miller MD [facility]5 [facility] 2L [place] [address] 09/19/2024 2:00 PM CDT Office Visit [facility] - Orthopedic Surgery [address] [facility] [place] [address] Larry Alexander MD [address] [facility] [address] [place] [address] documented as of this encounter Goals Goal [...] TUMOR MARKER (02/09/2022 9:21 AM CDT) Pathologist [facility] Alpha-Fetoprotei n Tumor Marker 2.3 <6.1 ng/mL [facility] Comment: This test was performed using the Flex Eleno chemiluminescent method. Values obtained from different assay methods cannot be used interchangeably. AFP levels, regardless of value, should not be interpreted as absolute evidence of the presence or absence of disease. REPORT COMMENT: FASTING:YES Test Performed at: [facility] [address] ??[phone] LAURA REYES MD 02/09/2022 9:21 AM CDT 02/09/2022 9:23 AM CDT Jackelyn Licona MD LAB - CHEMISTRY ROYCE [address] [facility] [address] [place] [address] * (ABNORMAL) CBC WITH DIFFERENTIAL (02/09/2022 9:21 AM CDT) [facility] White Blood Cell Count 8.3 3.8 - [...] 0.7 % [facility] Comment: Test Performed at: [facility] [address] [place] ??[phone] ROSS LOPEZ DO,MPH 02/09/2022 9:21 AM CDT 02/09/2022 9:23 AM CDT Jackelyn Licona MD LAB - HEMATOLOGY ORD ERABLES [facility] [address] [place] [address] * (ABNORMAL) COMPREHENSIVE METABOLIC PANEL (02/09/2022 9:21 [...] 46 U/L [facility] Comment: Test Performed at: [facility] [address] [place], [place] ??[address] ROSS LOPEZ DO,MPH 02/09/2022 9:21 AM CDT 02/09/2022 9:23 AM CDT Jackelyn Licona MD LAB - CHEMISTRY ORDE RAISA Performing Organization Address [facility] Co de Phone Number [address] [address] * PT-INR (02/09/2022 9:15 AM CDT) INR 1.1 [facility] Comment: Reference Range ? 0.9-1.1 Moderate-intensity Warfarin Therapy 2.0-3.0 Higher-intensity Warfarin Therapy ?? 3.0-4.0 PT 10.9 9.0 - 11.5 sec [facility] Comment: For additional information, please refer to http://education.[employer]/faq/MOC380 (This link is being provided for informational/ educational purposes only.) Test Performed at: [facility] ??[phone] DORIAN CRUZ MD 02/09/2022 9:15 AM CDT 02/09/2022 9:17 AM CDT Jackelyn Licona MD LAB - COAGULATION OR DERABLES Performing Organization Address [facility] Co de Phone Number [address] [address] documented in this encounter Visit Diagnoses Not on filedocumented in this encounter Additional Health Concerns Infection Onset Date Last Indicated Resolved Time 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
--- OUTSIDE RECORDS SUMMARY | 2024-05-25 03:00 | XMS_ITS | Encounter Summary ---
Author Organization [facility] Address [address] [place] [address] Care Team Providers Care Grease Renderer Name Role Phone Unknown, Provider Primary Care Provider Unavaila ble Reason for Visit * Auth/Cert (Routine) Specialty Diagnoses / Procedures Referred By Contsara t Referred To Contact Diagnoses Liver cirrhosis secondary to RAYGOZA (HCC) Procedures ESOPHAGOGASTRODUODENOSCOPY (EGD) DIAGNOSTIC Referral ID Status Reason Start Date Expiration Date Visits Re quested Visits Authorized [id number] 1 1 Encounter Details Date Type Department Care Team (Late st Contact Info) Description 10/07/2022 1:00 PM CDT - 10/07/2022 1:30 PM CDT Surgery [facility] [address] [place] [address] Jackelyn Licona MD [address] [place] [address] EGD w/ jorge Surgery Details Date/Time Status Location OR Service Patient Class Case Class Case Type Trauma Case? 10/07/2022 1:00 PM Posted [facility] Endoscopy ENDO 2 Gastroenterology Surgery [...] Today Call patient Naye Myrick RN P [facility] Schedulers - Endoscopy Pool Please schedule patient [...] ask them during your visits. ?? Copyright [employer] 2020 Information is for End User's use only and may not be sold, redistributed or otherwise used for commercial purposes. All illustrations and images included in CareNotes?? are the copyrighted property of [employer] or [employer] The above information is an educational interpreter only. It is not intended as medical [...] by mouth 2 times daily 10/12/2023 nystatin 170755 UNIT/GM cream - BACITRACIN ointment 50:50 CREA [...] of the Body, eyes 10/12/2023 Spacer/Aero-Holding Chambers ([facility]) MISC as directed 11/17/2020 10/12/2023 triamcinolone acetonide (KENALOG) 0.1 % cream Apply to affected area 2 times daily as needed Apply to rash daily as needed. 10/12/2023 vitamin D, ergocalciferol, (DRISDOL) 07415 UNITS capsuleIndications:Ot her cirrhosis of liver (HCC) [...] S/P PICC central line placement 02/13/2019 [facility] VAT R basilic ??? Seizures (CMS/HCC) [...] red peppers ??? Scopace [Scopolamine] Other and INSPECTOR PLATING Dysfunction delirium ??? Tobramycin Eye Itching red [...] st Contact Info) Description 07/09/2024 12:30 PM STRUCTURAL ARCHITECT Office Visit [facility] - GI [address] [place] [address], [place] [address] Twin Miller MD [address] [place] [address] [place] [address] 09/19/2024 2:00 PM CDT Office Visit [facility] - Orthopedic Surgery [facility] [place] [address] Larry Alexander MD [address] [facility] 280 [place] [address] documented as of this encounter Goals Goal [...] CDT Liver cirrhosis secondary to RAYGOZA (HCC) [place] ED EGD FLEX TRANSORAL DX 10/07/2022 1:40 PM CDT Liver cirrhosis secondary to RAYGOZA (HCC) Special Needs EGD Received: Today Call patient Naye Myrick RN [facility] Schedulers - Endoscopy Pool Please schedule patient [...] Case Report Surgical Pathology Report ? Case: [id number] ? Authorizing Provider: ??Jackelyn Licona MD ? Collected: ? 10/07/2022 01:53 PM ? Ordering Location: ? [facility] ?Received: ?10/07/2022 02:55 PM ? Pathologist: ? Paz Claudio MD ? Specimen: ?Gastric, gastric biopsies r/o h. pylori ? 10/08/2022 2:17 PM [facility] Final Diagnosis Stomach, biopsy (A): - Antral and oxyntic mucosa: proton pump inhibitor effect in oxyntic mucosa; negative for inflammation and Helicobacter on H and E stain 10/08/2022 2:17 PM [facility] Microscopic Description and Comment Microscopic examination substantiates the final diagnosis. 10/08/2022 2:17 PM [facility] Clinical History The patient is a 71 years old man with portal hypertension, rule out esophageal varices. Operative findings/procedure: Erythematous mucosa in the antrum, biopsied. No polyps mentioned. 10/08/2022 2:17 PM [facility] Gross Description The requisition and specimen(s) are identified with the patient's name Mason Keys. Received in formalin, specimen A , are 6 pink-poe tissues, 0.1-0.4 cm in greatest dimension and 1.4 x 0.2 x 0.1 cm in aggregate, submitted in toto in cassette A1. DF 10/08/2022 2:17 PM [facility] Disclaimer The performance characteristics of all immunohistochemical and indirect immunofluorescence stains (if any) cited in this report were determined by the Histopathology Laboratory of [facility]. Some of these tests were [...] attending (teaching) pathologist. 10/08/2022 2:17 PM CDT [facility] Embedded Images 10/08/2022 2:17 PM CDT [facility] Biopsy, NOS GASTRIC CONTENTS SPECIMEN / Unknown 10/07/2022 1:53 PM CDT 10/07/2022 2:55 PM CDT Comment:Pre-op diagnosis: Liver cirrhosis secondary to RAYGOZA (CMS/HCC) [K75.81, K74.60] Jackelyn Licona MD LAB - PATHOLOGY/CYTO LOGY ORDERABLES [facility]Y LAB [address] [place] [address], [facility] [phone] * GLUCOSE - POINT OF CARE (10/07/2022 1:28 PM CDT) Glucose WB/POC 111 70 - 115 mg/dL 10/07/2022 1:29 PM CDT [facility] Specimen Type Venous 10/07/2022 1:29 PM CDT [facility] Blood BLOOD SPECIMEN / Unknown 10/07/2022 1:28 PM CDT 10/07/2022 1:29 PM CDT Jackelyn Licona MD LAB - POINT OF CARE ORDERABLES Performing Organization Address [facility]/State/ZIP Co de Phone Number [facility] [address] [place] [address], [facility] [phone] * EGD (10/07/2022 1:17 PM CDT) Report [...] Procedure Code(s): ? --- Professional --- ? [address]6031, Esophagogastroduod enoscopy, flexible, transoral; with biopsy, ? single or multiple Diagnosis Code(s): ?--- Professional --- ?K76.6, Portal hypertension ?K31.89, Other diseases of stomach and duodenum ?K26.4, Chronic or unspecified duodenal ulcer with ?hemorrhage CPT copyright 2019 [employer]. All rights reserved. The codes documented in this report are preliminary and upon test engineering manager review may be revised to meet current compliance requirements. Jackelyn Licona, 10/07/2022 2:23:01 PM Note Initiated On: 10/07/2022 1:17 PM Number of Addenda: 0 ? [facility] ? [address] [place] [address] [facility] 10/07/2022 1:17 PM CDT Jackelyn Licona MD GI PROCEDURE ORDERAB LES [facility] documented in this encounter Visit Diagnoses [...] documented as of this encounter Care Teams Grease Renderer Relationship Specialty Start Date End Date Unknown, Provider PCP - General 08/23/22 10/12/23 documented as of this encounter
--- OUTSIDE RECORDS SUMMARY | 2024-05-25 03:00 | XMS_ITS | Encounter Summary ---
Author Organization [facility] Address [address] [place] [address] Care Team Providers Care Hemotherapist Name Role Phone Unknown, Provider Primary Care Provider Unavaila ble Reason for Visit * Auth/Cert (Routine) Specialty Diagnoses / Procedures Referred By Contac t Referred To Contact Diagnoses Liver cirrhosis secondary to RAYGOZA (HCC) Procedures ESOPHAGOGASTRODUODENOSCOPY (EGD) DIAGNOSTIC Referral ID Status Reason Start Date Expiration Date Visits Re quested Visits Authorized [id number] 1 1 Encounter Details Date Type Department Care Team (Late st Contact Info) Description 10/07/2022 12:06 PM CDT - 10/07/2022 3:05 PM CDT Hospital Encounter [facility] [address] [place] [address] Jackelyn Licona MD [address] [place] [address] Surgery General Discharge Disposition: Home or Self [...] ask them during your visits. ?? Copyright [employer] 2020 Information is for End User's use only and may not be sold, redistributed or otherwise used for commercial purposes. All illustrations and images included in CareNotes?? are the copyrighted property of [employer] or [employer] The above information is an rehabilitation aide only. It is not intended as [...] by mouth 2 times daily 10/12/2023 nystatin 848303 UNIT/GM cream - BACITRACIN ointment 50:50 CREA [...] as needed. 10/12/2023 vitamin D, ergocalciferol, (DRISDOL) 78730 UNITS capsuleIndications:Ot her cirrhosis of liver (HCC) [...] red peppers ??? Scopace [Scopolamine] Other and COMMUNICATIONS EQUIPMENT OPERATOR Dysfunction delirium ??? Tobramycin Eye Itching [...] this patient and there are no changes. Jaceklyn Licona MD documented in this encounter Plan of Treatment Upcoming Encounters Date Type Department Care Team (Late st Contact Info) Description 07/09/2024 12:30 PM STEEL SHOT HEADER OPERATOR Office Visit [facility] - GI [address] [facility], [place] [address] Twin Miller MD [facility] [place] [address] 09/19/2024 2:00 PM CDT Office Visit [facility] - Orthopedic Surgery [address] [place] [address] Larry Alexander MD [address] [facility] [address] [place] [address] documented as of this encounter Goals Goal [...] CDT Liver cirrhosis secondary to RAYGOZA (HCC) [place] ED EGD FLEX TRANSORAL DX 10/07/2022 1:40 PM CDT Liver cirrhosis secondary to RAYGOZA (HCC) Special Needs EGD Received: Today Call patient Naye Myrick RN P [facility] Schedulers - Endoscopy Pool Please schedule [...] Case Report Surgical Pathology Report ? Case: [id number] ? Authorizing Provider: ??Jackelyn Licona MD ? [...] substantiates the final diagnosis. 10/08/2022 2:17 PM [facility] Clinical History The patient is a 71 years old man with portal hypertension, rule out esophageal varices. Operative findings/procedure: Erythematous mucosa in the antrum, biopsied. No polyps mentioned. 10/08/2022 2:17 PM T [facility] Gross Description The requisition and specimen(s) are identified with the patient's name Mason Keys. Received in formalin, specimen A , are 6 pink-poe tissues, 0.1-0.4 cm in greatest dimension and 1.4 x 0.2 x 0.1 cm in aggregate, submitted in toto in cassette A1. DF 10/08/2022 2:17 PM T [facility] Disclaimer The performance characteristics of all immunohistochemical and indirect immunofluorescence stains (if any) cited in this report were determined by the Histopathology Laboratory of [facility]. Some of these tests were developed [...] attending (teaching) pathologist. 10/08/2022 2:17 PM T [facility] Embedded Images 10/08/2022 2:17 PM [facility] Biopsy, NOS GASTRIC CONTENTS SPECIMEN / Unknown 10/07/2022 1:53 PM CDT 10/07/2022 2:55 PM CDT Comment:Pre-op diagnosis: Liver cirrhosis secondary to RAYGOZA (CMS/HCC) [K75.81, K74.60] Jackelyn Licona MD LAB - PATHOLOGY/CYTO LOGY ORDERABLES [facility] [address] [phone] * GLUCOSE - POINT OF CARE (10/07/2022 1:28 PM CDT) Glucose WB/POC 111 70 - 115 mg/dL 10/07/2022 1:29 PM CDT [facility] Specimen Type Venous 10/07/2022 1:29 PM CDT [facility] Blood BLOOD SPECIMEN / Unknown 10/07/2022 1:28 PM CDT 10/07/2022 1:29 PM CDT Jackelyn Licona MD LAB - POINT OF CARE ORDERABLES [facility] [address] [place] [address], [facility] [phone] * EGD (10/07/2022 1:17 PM CDT) Report [...] Procedure Code(s): ? --- Professional --- ? 89591, Esophagogastroduod enoscopy, flexible, transoral; with biopsy, ? single or multiple Diagnosis Code(s): ?--- Professional --- ?K76.6, Portal hypertension ?K31.89, Other diseases of stomach and duodenum ?K26.4, Chronic or unspecified duodenal ulcer with ?hemorrhage CPT copyright 2019 [employer]. All rights reserved. The codes documented in this report are preliminary and upon compliance review officer review may be revised to meet current compliance requirements. Jackelyn Licona, 10/07/2022 2:23:01 PM Note Initiated On: 10/07/2022 1:17 PM Number of Addenda: 0 ? [address] [place] [address] [facility] 10/07/2022 1:17 PM CDT Jackelyn Licona MD GI PROCEDURE ORDERAB LES [facility] documented in this encounter Visit Diagnoses [...] documented as of this encounter Care Teams Hemotherapist Relationship Specialty Start Date End Date Unknown, Provider PCP - General 08/23/22 10/12/23 documented as of this encounter
--- OUTSIDE RECORDS SUMMARY | 2024-05-25 03:00 | XMS_ITS | Encounter Summary ---
Author Organization [facility] Address [address] [facility] [place] [address] Care Team Providers Care Residential Coordinator Name Role Phone Unknown, Provider Primary Care Provider Unavaila ble Encounter Details Date Type Department Care Team (Late st Contact Info) Description 09/30/2022 Patient Outreach [facility] [address] [place] [address] Wendy Cotton, RN Social History [...] 1 hour prior to procedure time. 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 Will hold eliquis 2 days prior documented in this encounter Plan of Treatment Upcoming Encounters Date Type Department Care Team (Late st Contact Info) Description 07/09/2024 12:30 PM TURRET LATHE OPERATOR Office Visit [facility] - GI [address] [place] [address], [place] [address] Twin Miller MD [facility] [place] [address] 09/19/2024 2:00 PM CDT Office Visit [facility] - Orthopedic Surgery [address] [place] [address] Larry Alexander MD [address] [facility] [address] [place] [address] documented as of this encounter Goals Goal [...] documented as of this encounter Care Teams Residential Coordinator Relationship Specialty Start Date End Date Unknown, Provider PCP - General 08/23/22 10/12/23 documented as of this encounter
--- OUTSIDE RECORDS SUMMARY | 2024-05-25 03:00 | XMS_ITS | Encounter Summary ---
Author Organization [facility] Address [address] [facility] [place] [address] Care Team Providers Care Nozzleman Name Role Phone Unknown, Provider Primary Care [...] Contact Info) Description 07/09/2024 12:30 PM PLASTIC MACHINE OPERATOR Office Visit [facility] - GI [address] [facility], [place] [address] Twin Miller MD [facility] [place] [address] 09/19/2024 2:00 PM CDT Office Visit [facility] - Orthopedic Surgery [address] [place] [address] Larry Alexander MD [address] [facility] [address] [place] [address] documented as of this encounter Goals Goal [...] documented as of this encounter Care Teams Nozzleman Relationship Specialty Start Date End Date Unknown, Provider PCP - General 08/23/22 10/12/23 documented as of this encounter
--- OUTSIDE RECORDS SUMMARY | 2024-05-25 03:00 | XMS_ITS | Encounter Summary ---
Author Organization [facility] Address [address] [place] [address] Care Team Providers Care Business Services Associate Name Role Phone Unknown, Provider Primary Care Provider Unavaila ble Encounter Details Date Type Department Care Team (Late st Contact Info) Description 05/10/2023 Patient Outreach [facility] [address] [place] [address] Wendy Cotton RN Social History [...] Wendy Cotton RN - 05/11/2023 12:55 PM STUDY COORDINATOR Agreeable to arrive at 1300 Y COORDINATOR * Telephone Encounter - Wendy Cotton RN - 05/10/2023 10:05 AM STUDY COORDINATOR Pt confirmed procedure appointment for EGD on 05/12 with a 130pm arrival . Verbalized understanding of prep instructions including NPO after midnight. Will arrive 1 hour prior to procedure time. 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 Reminded to stay on eliquis for this. Reminded to take all regular medications as scheduled and to take all heart and BP meds in the morning of test with a sip of water Y COORDINATOR documented in this encounter Plan of Treatment Upcoming Encounters Date Type Department Care Team (Late st Contact Info) Description 07/09/2024 12:30 PM STUDY COORDINATOR Office Visit [facility] - GI [address] [place] [address], [facility] [place] [phone] Twin Miller MD [address] [place] [address] [place] [address] 09/19/2024 2:00 PM CDT Office Visit [facility] - Orthopedic Surgery [address] [place] [address] Larry Alexander MD [address] [facility] [address] [place] [address] documented as of this encounter Goals Goal [...] documented as of this encounter Care Teams Business Services Associate Relationship Specialty Start Date End Date Unknown, Provider PCP - General 08/23/22 10/12/23 documented as of this encounter
--- OUTSIDE RECORDS SUMMARY | 2024-05-25 03:00 | XMS_ITS | Encounter Summary ---
Author Organization [facility] Address [address] [facility] [place] [address] Care Team Providers Care Reducer Name Role Phone Unknown, Provider Primary Care Provider Unavaila ble Reason for Visit * Auth/Cert (Routine) Specialty Diagnoses / Procedures Referred By Contac t Referred To Contact Diagnoses Nonalcoholic steatohepatitis (RAYGOZA) Acute gastric ulcer with hemorrhage Procedures [place] EGD FLEX TRANSORAL DX [facility] w[facility]lex[facility] ESOPHAGOGASTRODUODENOSCOPY (EGD) DIAGNOSTIC Referral ID Status Reason Start Date Expiration Date Visits Re quested Visits Authorized [id number] 1 1 Encounter Details Date Type Department Care Team (Latest Contact Info) Description 05/12/2023 12:41 PM PHOSPHATIC FERTILIZER SUPERVISOR - 05/12/2023 3:30 PM PHOSPHATIC FERTILIZER SUPERVISOR Hospital Encounter [facility] [address] [place] [address] Twin Miller MD [address] [place] [address] Surgery General Discharge Disposition: Home or Self [...] Comments Blood Pressure 132/85 05/12/2023 3:15 PM PHOSPHATIC FERTILIZER SUPERVISOR Pulse 68 05/12/2023 3:15 PM PHOSPHATIC FERTILIZER SUPERVISOR Temperature 36.4 ??C (97.6 ??F) 05/12/2023 2:45 PM CS T Respiratory Rate 20 05/12/2023 3:15 PM PHOSPHATIC FERTILIZER SUPERVISOR Oxygen Saturation 95% 05/12/2023 3:15 PM PHOSPHATIC FERTILIZER SUPERVISOR Inhaled Oxygen Concentration - - Weight 111.1 kg (245 lb) 05/12/2023 1:48 PM PHOSPHATIC FERTILIZER SUPERVISOR Height 180.3 cm (5' 11 ) 05/12/2023 1:48 PM PHOSPHATIC FERTILIZER SUPERVISOR Body Mass Index 34.17 05/12/2023 1:48 PM PHOSPHATIC FERTILIZER SUPERVISOR documented in this encounter Functional Status [...] Glendy Frankel RN - 05/12/2023 2:58 PM PHOSPHATIC FERTILIZER SUPERVISOR Images from the original note were [...] ask them during your visits. ?? Copyright [employer] 2020 Information is for End User's use only and may not be sold, redistributed or otherwise used for commercial purposes. All illustrations and images included in CareNotes?? are the copyrighted property of [employer] or [employer] The above information is an shopper's aide only. It is not intended as medical advice for individual conditions or treatments. Talk to your doctor, nurse or pharmacist before following any medical regimen to see if it is safe and effective for you. PHATIC FERTILIZER SUPERVISOR documented in this encounter Medications at [...] (Lidoderm) 5 % patch 01/25/2023 11/03/2023 nystatin 921014 UNIT/GM cream - BACITRACIN ointment 50:50 CREA [...] of the Body, eyes 10/12/2023 Spacer/Aero-Holding Chambers [facility] MISC as directed 11/17/2020 10/12/2023 [...] for Procedure: Cirrhosis, variceal screening History: Briefly, Msaon Keys is a 72 year old year [...] ??? S/P PICC central line placement 02/13/2019 [facility] VAT R basilic ??? Seizures (CMS/HCC) ??? Squamous cell carcinoma ??? VRE (vancomycin resistant enterococcus) culture positive 04/29/2019 rectal swab+ Allergies Allergen Reactions ??? Penicillins Skin Reactions and Swelling ??? Levaquin [Levofloxacin] Eye Itching red around the eyes , puffy, itchy ??? Green [Peppers] GI Discomfort Green and red peppers ??? Scopace [Scopolamine] Other and BULL WHEEL WORKER Dysfunction delirium ??? Tobramycin Eye Itching red [...] tablet by mouth once daily ??? nystatin 342304 UNIT/GM cream - BACITRACIN ointment 50:50 CREA [...] are no changes. Twin Miller MD, FAASLD Digital Design Engineerinorganic chemist IM/GI Department [facility] 05/12/2023 1:12 PM PHATIC FERTILIZER SUPERVISOR documented in this encounter Plan of Treatment Upcoming Encounters Date Type Department Care Team (Late st Contact Info) Description 07/09/2024 12:30 PM PHOSPHATIC FERTILIZER SUPERVISOR Office Visit [facility] - GI [address] [place] [address], [place] [phone] Twin Miller MD [address] [place] [address] [place] [address] 09/19/2024 2:00 PM CDT Office Visit [facility] - Orthopedic Surgery [address] [place] [phone] [place] [address] [place] [address] [address] [place] [address] Scheduled Orders Name Type Priority Associated Diagnoses [...] Name Priority Date/Time Associated Diagnosis Comments [place] EGD FLEX TRANSORAL DX 05/12/2023 2:33 PM PHOSPHATIC FERTILIZER SUPERVISOR Nonalcoholic steatohepatitis (RAYGOZA) Acute gastric ulcer with hemorrhage Special Needs egd Received: Today Cheri Clark, RN P [facility] Schedulers - Endoscopy Pool Hi [...] 12:24 PM EGD Routine 05/12/2023 2:04 PM PHOSPHATIC FERTILIZER SUPERVISOR documented in this encounter Results * EGD (05/12/2023 2:04 PM PHOSPHATIC FERTILIZER SUPERVISOR) Report Endoscopy POC Endoscopy Department Report [...] Biopsies not taken ? as patient on Smart Wire Grid. ? Localized mild inflammation characterized by erosions and erythema was ? found in the duodenal bulb. Biopsies not taken as patient on Smart Wire Grid. ? The cardia and gastric fundus were normal on retroflexion. ? Estimated Blood Loss: ? Estimated blood loss: none. Complications: ?No immediate complications. Impression: ? - Small (< 5 mm) esophageal varices. ?- Gastritis. ?- Duodenitis. ?- No specimens collected as patient on Smart Wire Grid. Recommendation: ? - Patient has a contact [...] Procedure Code(s): ? --- Professional --- ? 90384, Esophagogastroduo denoscopy, flexible, transoral; diagnostic, ? including collection of specimen(s) by brushing or washing, when ? performed (separate procedure) Diagnosis Code(s): ?--- Professional --- ?K74.60, Unspecified cirrhosis of liver ?I85.10, Secondary esophageal varices without ?bleeding ?K29.70, Gastritis, unspecified, without bleeding ?K29.80, Duodenitis without bleeding CPT copyright 2021 [employer]. All rights reserved. The codes documented in this report are preliminary and upon grey roll man review may be revised to meet current compliance requirements. Twin Miller, 05/12/2023 2:44:06 PM Note Initiated On: 05/12/2023 2:04 PM Number of Addenda: 0 ? [facility] ? [address] [place] [address] [facility] 05/12/2023 2:04 PM PHOSPHATIC FERTILIZER SUPERVISOR Twin Miller MD GI PROCEDURE O RDERABLES [facility] documented in this encounter Visit [...] Recently Administered Medications Times are shown in PHOSPHATIC FERTILIZER SUPERVISOR. Scheduled Medication Order 05/10/2023 05/11/2023 05/12/2023 0.9% [...] documented as of this encounter Care Teams Reducer Relationship Specialty Start Date End Date Unknown, Provider PCP - General 08/23/22 10/12/23 documented as of this encounter
--- OUTSIDE RECORDS SUMMARY | 2024-05-25 03:00 | XMS_ITS | Encounter Summary ---
Author Organization [facility] Address [address] [facility] [place] [address] Care Team Providers Care Electronic Console Display Operator Name Role Phone Unknown, Provider Primary Care Provider Unavaila ble Reason for Visit * Auth/Cert (Routine) Specialty Diagnoses / Procedures Referred By Ru t Referred To Contact Diagnoses Liver cirrhosis secondary to RAYGOZA (HCC) Procedures ESOPHAGOGASTRODUODENOSCOPY (EGD) DIAGNOSTIC Referral ID Status Reason Start Date Expiration Date Visits Re quested Visits Authorized [id number] 1 1 Encounter Details Date Type Department Care Team (Late st Contact Info) Description 10/07/2022 1:38 PM CDT Anesthesia Event [facility] [address] [place] [phone] Yonas Arias MD [address] [place] [address] Epi Dennison Anes Asst [address] [facility] [place] [address] Anesthesia Record Procedure Summary Procedure Name Responsible [...] NOTABLE EVENTS: No notable events documented. * Yonas Arias MD - 10/07/2022 8:23 AM CDT ANESTHESIA PREOPERATIVE EVALUATION NOTE Procedure: EGD w/ jorge (Esophagus) Vitals: No data found. LMP: No LMP for male patient. OB Status: unknown ANESTHESIA PRE-EVALUATION NOTE History of Present Illness: Procedure Information Case: [id number] Date/Time: 10/07/22 1300 Procedure: EGD w/ patel (Esophagus) Anesthesia type: MAC Diagnosis: Liver cirrhosis secondary to RAYGOZA (CMS/HCC) (K75.81, K74.60) Pre-op diagnosis: Liver cirrhosis secondary to RAYGOZA (CMS/HCC) (K75.81, K74.60) Location: [facility] ENDO ROOM 2 / [facility] Endoscopy Providers: Jackelyn Patel MD Physical Exam: [...] procedural Anesthetic Plan was discussed with the executive marketing assistant and SITE SAFETY REPRESENTATIVE. Overall additional findings/comments: Reviewed available information , notes and relevant labs, diagnostic test results. Discussed anesthetic plan option / risks and benefits. Questions answered. Attending Anesthesiologist Attestation I have reviewed the chart I have reviewed medications I have interviewed and examined the patient I agree with the documentation and have dicussed the anesthesia plan w/ the Resident, AA, SITE SAFETY REPRESENTATIVE I discussed risks of anesthesia including, chipped or missing tooth, sore throat, and, although rare, possible [place], CVA, cardiopulmonary event, thromboembolic events, prolonged mechanical [...] red peppers ??? Scopace [Scopolamine] Other and FORENSIC ENGINEER Dysfunction delirium ??? Tobramycin Eye Itching red around the eyes, puffy, itchy Relevant Problems No relevant active problems Problem List: Patient Active Problem List Diagnosis Date Noted ??? Benign prostatic hyperplasia without lower urinary tract symptoms 06/06/2019 Priority: Not Prioritized ??? 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 Liver cirrhosis secondary to RAYGOZA ([facility]) 08/17/2018 [...] 08/29/2017 ??? Acute respiratory failure with hypoxia ([facility]) 08/29/2017 ??? Discitis of lumbar region 08/29/2017 ??? Acute kidney failure ([facility]) 08/29/2017 ??? Sepsis ([facility]) 08/27/2017 ??? Severe sepsis without septic shock (CODE) ([facility]) 08/27/2017 ??? Acute embolism and thrombosis of deep vein of lower extremity ([facility]) 07/25/2017 [...] ??? S/P PICC central line placement 02/13/2019 [facility] VAT R basilic ??? Seizures (CMS/HCC) [...] ABSCESS ??? Tracheostomy N/A 09/13/2017 N/A; TRACHEOSTOMY FAMILY LAW PARALEGAL Status: No LMP for male patient. unknown [...] red peppers ??? Scopace [Scopolamine] Other and FORENSIC ENGINEER Dysfunction delirium ??? Tobramycin Eye Itching [...] st Contact Info) Description 07/09/2024 12:30 PM EMBEDDED SYSTEMS ENGINEER Office Visit [facility] - GI [address] [place] [address], [place] [address] Twin Miller MD [address] [place] [address] [place] [address] 09/19/2024 2:00 PM CDT Office Visit [facility] - Orthopedic Surgery [address] [facility] [place] [address] Larry Alexander MD [address] [place] [address] documented as of this encounter Goals Goal [...] documented as of this encounter Care Teams Electronic Console Display Operator Relationship Specialty Start Date End Date Unknown, Provider PCP - General 08/23/22 10/12/23 documented as of this encounter
--- OUTSIDE RECORDS SUMMARY | 2024-05-25 03:00 | XMS_ITS | Encounter Summary ---
Author Organization [facility] Address [address] [facility] [place] [address] Care Team Providers Care Chuck Wagon Cook Name Role Phone Briana Medeiros MD Primary Care Provider [phone] Reason for Referral * Radiology Services (Routine) - Closed Specialty Diagnoses / Procedures Referred By Contac t Referred To Contact Ultrasound Diagnoses Liver cirrhosis secondary to RAYGOZA (HCC) Lower extremity edema Cirrhosis of liver without ascites, unspecified hepatic cirrhosis type (HCC) Screening of cancer Procedures US ABDOMEN LIMITED Jackelyn Licona MD [address] [place] [address] [address] [place] [address] Referral ID Status Reason Start Date Expiration Date Visits Re quested Visits Authorized [id number] Closed 08/17/2021 08/17/2022 1 1 Reason for Visit * Radiology Services (Routine) - Closed Specialty Diagnoses / Procedures Referred By Contac t Referred To Contact Ultrasound Diagnoses Liver cirrhosis secondary to RAYGOZA (HCC) Lower extremity edema Cirrhosis of liver without ascites, unspecified hepatic cirrhosis type (HCC) Screening of cancer Procedures US ABDOMEN LIMITED Jackelyn Licona MD [address] [place] [address] [facility] [address] [place] [address] Referral ID Status Reason Start Date Expiration Date Visits Re quested Visits Authorized [id number] Closed 08/17/2021 08/17/2022 1 1 Encounter Details Date Type Department Care Team (Late st Contact Info) Description 08/25/2021 12:24 PM CDT - 08/25/2021 11:59 PM CDT Hospital Encounter [facility] [address] [place] [address] Jackelyn Licona MD [address] [place] [address] Discharge Disposition: Home or Self Care Social [...] mouth 2 times daily 10/12/2023 nystatin (MYCOSTATIN) 847677 UNIT/GM powder Apply to affected area 2 [...] as needed. 10/12/2023 vitamin D, ergocalciferol, (DRISDOL) 67179 UNITS capsuleIndications:Oth er cirrhosis of liver (HCC) Take 50,000 Units by mouth every 7 days 0 02/02/2018 03/21/2023 documented as of this encounter Plan of Treatment Upcoming Encounters Date Type Department Care Team (Late st Contact Info) Description 07/09/2024 12:30 PM NEIGHBORHOOD COORDINATOR Office Visit [facility] - GI [address] [place] [address], [facility] [place] [phone] Twin Miller MD [address] [place] [address] [place] [address] 09/19/2024 2:00 PM CDT Office [facility] - Orthopedic Surgery [facility]1 [place] [address] Larry Alexander MD [address] [facility] [address] [place] [address] documented as of this encounter Goals Goal [...] acute cholecystitis. Dictated by Julienne Son MD (physician president). I, Dr. MIKKI CHAMBERS have personally reviewed [...] acute cholecystitis. Dictated by Julienne Son MD (physician president). I, Dr. MIKKI CHAMBERS have personally reviewed [...] documented as of this encounter Care Teams Chuck Wagon Cook Relationship Specialty Start Date End Date Briana Medeiros MD [address] [place] [address] PCP - General 02/15/18 02/22/22 documented as of this encounter
--- OUTSIDE RECORDS SUMMARY | 2024-05-25 03:00 | XMS_ITS | Encounter Summary ---
Author Organization [facility] Address [address] [facility] [place] [address] Care Team Providers Care Rn Occupational Health Name Role Phone Briana Medeiros MD Primary Care Provider [phone] Reason for Referral * Radiology Services (Routine) - Closed Specialty Diagnoses / Procedures Referred By Contac t Referred To Contact Ultrasound Diagnoses Liver cirrhosis secondary to RAYGOZA (HCC) Procedures US ABDOMEN LIMITED Kimberly Lacy PA-C [address] [place] [address] [address] [place] [address] [facility] [address] [place] [address] Referral ID Status Reason Start Date Expiration Date Visits Re quested Visits Authorized [id number] Closed 02/23/2022 02/23/2023 1 1 Reason for Visit * Reason Comments Cirrhosis Encounter Details Date Type Department Care Team (Late st Contact Info) Description 02/23/2022 12:30 PM CDT Office Visit [facility] - GI [facility], [facility] [place] [address] Kimberly Lacy PA-C [address] [place] [address] [address] [place] [address] Liver cirrhosis secondary to RAYGOZA [...] the physicians and other specialists at the [facility] Gastroenterology and Hepatology clinic today. Following your [...] please call (hospital main number), ask the electroslag welding machine operator to call the gastroenterology fellow reservation manager. Emergency: call 911 or go to your closest emergency room. We encourage you to use [employer] to send and receive messages and review your test results. Let us know if you need information on signing up for [employer]. More information about us and our services can be found on our websites at [email or web address] and [email or web address] Information about the [facility] of the Liver [place], a xdx-nep-ljyqnr foundation supporting liver disease research by your doctors and researchers at [facility], can be found at: [email or web address] documented in this encounter Progress Notes * Kimberly Lacy PA-C - 02/23/2022 12:55 PM CDT [facility] Progress Note Subjective: Hx obtained from: [...] a little. He is going to the [facility] once a week. Historically he would [...] as needed. ??? vitamin D, ergocalciferol, (DRISDOL) 06842 UNITS capsule Take 50,000 Units by mouth [...] is advised to seek care from a head of commission department for his rashesthat are uncontrolled with the OTC treatments. Return to clinic: An appointment was scheduled for him to see us in followup in [address] Licona. Kimberly Lacy PA-C Physician Band Top Maker in Internal Medicine Olayinka Parks MD Professor of Internal Medicine Orders Placed This Encounter ??? US ABDOMEN LIMITED ??? COMPREHENSIVE METABOLIC PANEL ??? CBC WITH DIFFERENTIAL ??? PT-INR PCP K Ney Medeiros MD [address] [place] [address] Referring Physician Provider Unknown No address on file documented in this encounter Plan of Treatment Upcoming Encounters Date Type Department Care Team (Late st Contact Info) Description 07/09/2024 12:30 PM SCRAP DROP CRANE OPERATOR [place] [facility] [place] [address] [place] [address], [place] [phone] Twin Miller MD [address] [place] [address] [place] [address] 09/19/2024 2:00 PM CDT Office Visit [facility] - Orthopedic Surgery [facility] [place] [phone] Larry Alexander MD [address] [address] documented as of this encounter Goals Goal [...] [place] (resident). > Dictated by River Hensley (Real Estate Rental Agent) 08/23/2022 11:56 AM BLAISE Stringer MD have personally reviewed and interpreted this examination/study. > Interpreting Provider: BLAISE BOWENS MD on 08/23/2022 11:58 AM Narrative 08/23/2022 11:58 AM CDT PROCEDURE: ??US ABDOMEN LIMITED, DATE/TIME OF EXAM: ??08/23/2022 10:51 AM, LOCATION ??[facility] INDICATION: K75.81: Liver cirrhosis [...] DATE/TIME OF EXAM: 08/23/2022 10:51 AM, LOCATION [facility] INDICATION: K75.81: Liver cirrhosis [...] [place] (resident). > Dictated by River Hensley (Real Estate Rental Agent) 08/23/2022 11:56 AM IBLAISE MD have personally [...] documented as of this encounter Care Teams Rn Occupational Health Relationship Specialty Start Date End Date Briana Medeiros MD [address] [place] [address] PCP - General 02/23/22 06/13/22 documented as of this encounter
--- OUTSIDE RECORDS SUMMARY | 2024-05-25 03:00 | XMS_ITS | Encounter Summary ---
Author Organization [facility] Address [address] [place] [address] Care Team Providers Care Sales Appointment Coordinator Name Role Phone Unknown, Provider Primary Care Provider Unavaila ble Encounter Details Date Type Department Care Team (Late st Contact Info) Description 11/02/2022 Orders Only [facility] - [address] [facility], [facility] [place] [address] Debi Schmitt RN Social History Tobacco Use [...] Contact Info) Description 07/09/2024 12:30 PM HEAD CONCIERGE Office Visit [facility] - GI [address] [facility], [place] [address] Twin Miller MD [address] [facility] 2L DIV [place] [address] 09/19/2024 2:00 PM CDT Office Visit [facility] - Orthopedic Surgery [address] [place] [address] Larry Alexander MD [address] [facility] [address] [place] [address] documented as of this encounter Goals Goal [...] documented as of this encounter Care Teams Sales Appointment Coordinator Relationship Specialty Start Date End Date Unknown, Provider PCP - General 08/23/22 10/12/23 documented as of this encounter
--- OUTSIDE RECORDS SUMMARY | 2024-05-25 03:00 | XMS_ITS | Encounter Summary ---
Author Organization [facility] Address [address] [facility] [place] [address] Care Team Providers Care Head Animal Trainer Name Role Phone Briana Medeiros MD Primary Care Provider [phone] Encounter Details Date Type Department Care Team [...] st Contact Info) Description 07/09/2024 12:30 PM CUFFER Office [place] [facility] [place] [address] [place] [address], [place] [address] Twin Miller MD [address] [place] [address] [place] [address] 09/19/2024 2:00 PM CDT Office Visit [facility] - Orthopedic Surgery [address] [facility] [place] [address] Larry Alexander MD 10[address] [facility] 280 [place] [address] documented as of this encounter Goals Goal [...] documented as of this encounter Care Teams Head Animal Trainer Relationship Specialty Start Date End Date Briana Medeiros MD [address] [place] [address] PCP - General 02/23/22 06/13/22 documented as of this encounter
--- OUTSIDE RECORDS SUMMARY | 2024-05-25 03:00 | XMS_ITS | Encounter Summary ---
Author Organization [facility] Address [address] [facility] [place] [address] Care Team Providers Care Process Area Supervisor Name Role Phone Unknown, Provider Primary [...] st Contact Info) Description 07/09/2024 12:30 PM PRIVATE WATCHMAN Office Visit [facility] [place] [address] [facility], [place] [address] Twin Miller MD [address] [place] [address] [place] [address] 09/19/2024 2:00 PM CDT Office Visit [facility] - Orthopedic Surgery [address] [facility] [place] [address] Larry Alexander MD [address] [facility] 280 [place] [address] documented as of this encounter Goals Goal [...] documented as of this encounter Care Teams Process Area Supervisor Relationship Specialty Start Date End Date Unknown, Provider PCP - General 08/23/22 10/12/23 documented as of this encounter
--- OUTSIDE RECORDS SUMMARY | 2024-05-25 03:01 | XMS_ITS | Encounter Summary ---
Author Organization [facility] Address [address] [place] [address] Care Team Providers Care Insurance And Benefits Clerk Name Role Phone Briana Medeiros MD Primary Care Provider [phone] Reason for Referral * Radiology Services (Routine) - Closed Specialty Diagnoses / Procedures Referred By Contac t Referred To Contact Gastroenterology Diagnoses Liver cirrhosis secondary to MICHAUD (HCC) Metabolic syndrome Procedures PROC FIBROSCAN Jackelyn Licona MD [address] [place] [address] Referral ID Status Reason Start Date Expiration Date Visits Re quested Visits Authorized [id number] Closed 02/26/2020 02/25/2021 1 1 * Radiology Services (Routine) - Closed Specialty Diagnoses / Procedures Referred By Contac t Referred To Contact Ultrasound Diagnoses Liver cirrhosis secondary to MICHAUD (HCC) Metabolic syndrome Procedures US ABDOMEN LIMITED Jackelyn Licona MD [address] [place] [address] [facility] [address] [place] [address] Referral ID Status Reason Start Date Expiration Date Visits Re quested Visits Authorized [id number] Closed 02/26/2020 02/25/2021 1 1 Reason for Visit * Reason Comments Michaud Cirrhosis Encounter Details Date Type Department Care Team (Late st Contact Info) Description 02/26/2020 3:30 PM CDT Office Visit [facility] - [place] [address] [facility], [place] [address] Jackelyn Licona MD [address] [place] [address] Liver cirrhosis secondary to MICHAUD (HCC) (Primary [...] Licona MD - 02/26/2020 2:59 PM CDT [facility] Jackelyn Licona MD Referring Provider: Provider Unknown PCP: Briana Medeiros MD Interval history and subjective concerns: I had the pleasure of meeting Mason Keys at the [facility] on 02/26/2020. This is a [...] drink alcohol. Tobacco: He did smoke from 9970-1292. Review of Systems: Constitutional: negative for fevers, [...] 9 ) Wt 120.2 kg (265 lb) UrY0062% BMI 39.13 kg/m2 General appearance: normal, alert, [...] % 16 - 50 % 5 (L) Axadv-2-Tujftiyddny 90 - 200 mg/dL 223 (H) Phenotype (PI) Comment Hepatitis C Antibody Non-reactive Non-reactive HBc Antibody Total Non-reactive Non-reactive Hepatitis B Virus Surface Antigen Non-reactive Non-reactive Last endoscopies: EGD: -09/15/17: PEG placement. No esophageal varices. Colonoscopy: -Patient reports 2017 without polyps Last imaging: -Biomode - Biomolecular Determination 11/06/18: Hepatic cirrhosis without discrete hepatic lesion or intrahepatic biliary dilation. Patent hepatic vasculature. -Biomode - Biomolecular Determination 05/16/2019: Hepatic cirrhosis. No discrete hepatic lesion [...] prior to that visit. Jackelyn Licona MD Truck Bracer Division of Gastroenterology and Hepatology No orders [...] by mouth once daily ??? nystatin (NYSTOP) 921168 UNIT/GM powder Apply to affected area 2 [...] as needed. ??? vitamin D, ergocalciferol, (DRISDOL) 89597 UNITS capsule Take 50,000 Units by mouth every 7 days No current facility-administered medications for this visit. documented in this encounter Plan of Treatment Upcoming Encounters Date Type Department Care Team (Late st Contact Info) Description 07/09/2024 12:30 PM SERVICE DESK SPECIALIST Office Visit [facility] [place] [address] [facility], [facility] [place] [address] Twin Miller MD [address] [facility] 2[address] [facility] [place] [address] 09/19/2024 2:00 PM CDT Office Visit [facility] - Orthopedic Surgery [address] [facility] [place] [address] Larry Alexander MD 1031 [facility] 280 [place] [address] documented as of this encounter Goals Goal [...] documented as of this encounter Results * OH LIVER ELASTOGRAPHY (08/31/2020 9:47 PM CDT) Narrative [...] patients with nonalcoholic fatty liver disease. Gastroenterology 2019;156:6128-4375. Rico MS, Lina R, Van Maryta ML, [...] FIB4 score (Holayduke et al. Hepatology Communications 2019;3:2975-8368) or NAFLD Fibrosis score (Lutz et al. Clinical Gastroenterology and Hepatology 2019;17:2065-8504. from routine clinical data. 3. Liver stiffness [...] change as additional supporting data becomes available. [email or web address] Jackelyn Licona MD PROCEDURE/MINOR SURG ICAL ORDERABLES * US ABDOMEN LIMITED (03/19/2020 11:44 AM CDT) Anatomical Region Laterality Modality Abdomen Ultrasound 03/19/2020 10:3 3 AM CDT Impressions 03/19/2020 10:56 AM CDT IMPRESSION: Coarse liver echotexture without discrete hepatic lesion. Report dictated by Vanessa Wu MD (vice president of sales). I, Dr. TATIANA HORVATH have personally reviewed [...] by Vanessa Wu MD (vice president of sales). I, Dr. TATIANA HORVATH have personally reviewed [...] as of this encounter Care Teams Insurance And Benefits Clerk Relationship Specialty Start Date End Date Briana Medeiros MD [address] [place] [address] PCP - General 02/15/18 02/22/22 documented as of this encounter
--- OUTSIDE RECORDS SUMMARY | 2024-05-25 03:01 | XMS_ITS | Encounter Summary ---
Author Organization [facility] Address [address] [facility] [place] [address] Care Team Providers Care Prism Measurer Name Role Phone Briana Medeiros MD Primary Care Provider [phone] Encounter Details Date Type Department Care Team [...] st Contact Info) Description 07/09/2024 12:30 PM STRETCH MACHINE OPERATOR Office Visit [facility] [address] [facility], [place] [address] Twin Miller MD [facility]5 [facility] 2L [facility] [place] [address] 09/19/2024 2:00 PM CDT Office [facility] - Orthopedic Surgery [address] [facility] [place] [address] Larry Alexander MD [address] [facility] 280 [place] [address] documented as of this encounter Goals Goal [...] documented as of this encounter Care Teams Prism Measurer Relationship Specialty Start Date End Date Briana Medeiros MD [address] [place] [address] PCP - General 02/15/18 02/22/22 documented as of this encounter
--- OUTSIDE RECORDS SUMMARY | 2024-05-25 03:01 | XMS_ITS | Encounter Summary ---
Author Organization [facility] Address [address] [facility] [place] [address] Care Team Providers Care Adult Daycare Coordinator Name Role Phone Briana Medeiros MD Primary Care Provider [phone] Encounter Details Date Type Department Care Team (Late st Contact Info) Description 06/08/2021 Orders Only [facility] - [address] [facility], [place] [address] Jackelyn Licona MD [address] [place] [address] Liver cirrhosis secondary to RYAGOZA (HCC); Nonalcoholic steatohepatitis (RAYGOZA); Lower extremity edema [...] st Contact Info) Description 07/09/2024 12:30 PM CONSTRUCTION REPRESENTATIVE Office Visit [facility] [place] [address] [facility], [place] [address] Twin Miller MD [facility] [place] [address] 09/19/2024 2:00 PM CDT Office Visit [facility] - Orthopedic Surgery [address] [place] [address] Larry Alexander MD 10[address] [facility] 280 [place] [address] documented as of this encounter Goals Goal [...] documented as of this encounter Care Teams Adult Daycare Coordinator Relationship Specialty Start Date End Date Briana Medeiros MD [address] [place] [address] PCP - General 02/15/18 02/22/22 documented as of this encounter
--- OUTSIDE RECORDS SUMMARY | 2024-05-25 03:01 | XMS_ITS | Encounter Summary ---
Author Organization [facility] Address [address] [facility] [place] [address] Care Team Providers Care Director Of Laboratory Operations Name Role Phone Briana Medeiros MD Primary Care Provider [phone] Reason for Referral * Radiology Services (Routine) - Closed Specialty Diagnoses / Procedures Referred By Contac t Referred To Contact Ultrasound Diagnoses Liver cirrhosis secondary to RAYGOZA (HCC) Nonalcoholic steatohepatitis (RAYGOZA) Lower extremity edema Procedures US ABDOMEN LIMITED Jackelyn Licona MD [address] [place] [address] [facility] 12[address] [place] [address] Referral ID Status Reason Start Date Expiration Date Visits Re quested Visits Authorized [id number] Closed 03/09/2021 03/09/2022 1 1 Reason for Visit * Reason Comments Follow-up Encounter Details Date Type Department Care Team (Late st Contact Info) Description 12/30/2020 1:00 PM CDT Office Visit [facility] - [address] [facility], [place] [address] Jackelyn Licona MD [address] [place] [address] Nonalcoholic steatohepatitis (RAYGOZA) (Primary Dx); [...] Body Mass Index 35.29 07/03/2020 8:15 AM RESEARCH INSTRUCTOR documented in this encounter Functional Status Functional [...] Licona MD - 12/30/2020 1:13 PM CDT [facility] Jackelyn Licona MD Referring Provider: Provider Unknown PCP: Briana Medeiros MD Interval history and subjective concerns: I had the pleasure of meeting Mason Keys at the [facility] on 12/30/2020. This is [...] drink alcohol. Tobacco: He did smoke from 7843-9933. Chronic medical problems: Afib on eliquis CAD, [...] % 16 - 50 % 5 (L) Ungru-4-Fkoyvrvhnln 90 - 200 mg/dL 223 (H) Phenotype [...] prior to that visit. Jackelyn Licona MD Asbestos Abatement Technician Division of Gastroenterology and Hepatology No [...] by mouth once daily ??? nystatin (NYSTOP) 141732 UNIT/GM powder Apply to affected area 2 [...] as needed. ??? vitamin D, ergocalciferol, (DRISDOL) 39405 UNITS capsule Take 50,000 Units by mouth every 7 days No current facility-administered medications for this visit. documented in this encounter Plan of Treatment Upcoming Encounters Date Type Department Care Team (Late st Contact Info) Description 07/09/2024 12:30 PM RESEARCH INSTRUCTOR Office Visit [facility] - GI [address] [place] [address], [facility] [place] [address] Twin Miller MD [address] [place] [address] DIV [place] [address] 09/19/2024 2:00 PM CDT Office Visit [facility] - Orthopedic Surgery [address] [place] [address] Larry Alexander MD 10[address] [facility] 280 [place] [address] Scheduled Orders Name Type Priority Associated Diagnoses [...] acute cholecystitis. Dictated by Jens Mendoza MD (vice president for philanthropy). This report was approved ??by Jens Mendoza [...] acute cholecystitis. Dictated by Jens Mendoza MD (vice president for philanthropy). This report was approved by Jens Mendoza [...] 0.8 % [facility] Comment: Test Performed at: [facility] [address] [place], [place] ??[address] ROSS LOPEZ DO,MPH Blood BLOOD SPECIMEN / Unknown 01/09/2021 10:55 AM CDT 01/09/2021 10:56 AM CDT Jackelyn Licona MD LAB - HEMATOLOGY ORD ERABLES Performing Organization Address [facility] Co de Phone Number [facility] [address] [place] [address] * ALPHA FETOPROTEIN BLOOD TUMOR MARKER (01/09/2021 10:55 AM CDT) [facility] Alpha-Fetoprotei n Tumor Marker 1.3 <6.1 ng/mL [facility] Comment: This test was performed using the Flex Nicollet chemiluminescent method. Values obtained from different assay methods cannot be used interchangeably. AFP levels, regardless of value, should not be interpreted as absolute evidence of the presence or absence of disease. Test Performed at: [facility] [address] ??[phone] LAURA REYES MD Blood BLOOD SPECIMEN / Unknown 01/09/2021 10:55 AM CDT 01/09/2021 10:56 AM CDT Jackelyn Licona MD LAB - CHEMISTRY ORDMarj [facility] Performing Organization Address [facility] de Phone Number [facility] [address] [place] [address] * PT-INR (01/09/2021 10:55 AM CDT) [facility] INR 1.0 [facility] Comment: Reference Range ? 0.9-1.1 Moderate-intensity Warfarin Therapy 2.0-3.0 Higher-intensity Warfarin Therapy ?? 3.0-4.0 PT 10.6 9.0 - 11.5 sec [facility] Comment: For additional information, please refer to http://education.SnapDash/faq/NJE089 (This link is being provided for informational/ educational purposes only.) Test Performed at: [facility] [address] [place], [place] ??[address] DORIAN CRUZ MD Blood BLOOD SPECIMEN / Unknown 01/09/2021 10:55 AM CDT 01/09/2021 10:56 AM CDT Jackelyn Licona MD LAB - COAGULATION OR DERABLES [address] [address] * (ABNORMAL) COMPREHENSIVE METABOLIC PANEL (01/09/2021 10:55 [...] approximately 13% higher for people identified as -Gambian. eGFR by MDRD 31(L) > OR = [...] 46 U/L [facility] Comment: Test Performed at: [facility] [address] [place], [place] ??[address] ROSS LOPEZ DO,MPH Blood BLOOD SPECIMEN / Unknown 01/09/2021 10:55 AM CDT 01/09/2021 10:56 AM CDT Jackelyn Licona MD LAB - CHEMISTRY ROYCE KLINE Performing Organization Address City/State/[facility] Co de Phone Number [facility] [address] [place] [address] documented in this encounter Visit Diagnoses Diagnosis [...] of this encounter Care Teams Director Of Laboratory Operations Relationship Specialty Start Date End Date Briana Medeiros MD [address] [place] [address] PCP - General 02/15/18 02/22/22 documented as of this encounter
--- OUTSIDE RECORDS SUMMARY | 2024-05-25 03:01 | XMS_ITS | Encounter Summary ---
Author Organization [facility] Address [address] [facility] [place] [address] Care Team Providers Care Weight Clerk Name Role Phone Briana Medeiros MD Primary Care Provider [phone] Encounter Details Date Type Department Care Team (Late st Contact Info) Description 01/29/2021 Orders Only [facility] 1225 [place] [address] Neva Oliver, RN Liver cirrhosis secondary to [...] st Contact Info) Description 07/09/2024 12:30 PM HAND TRUCKER Office Visit [facility] 12[address] [facility], [place] [address] Twin Miller MD [address] [place] [address] 09/19/2024 2:00 PM CDT Office Visit [facility] - Orthopedic Surgery [address] [facility] [address] Larry Alexander MD 10[address] [facility] 280 [place] [address] documented as of this encounter Goals Goal [...] documented as of this encounter Care Teams Weight Clerk Relationship Specialty Start Date End Date Briana Medeiros MD [address] [place] [address] PCP - General 02/15/18 02/22/22 documented as of this encounter
--- OUTSIDE RECORDS SUMMARY | 2024-05-25 03:01 | XMS_ITS | Encounter Summary ---
Author Organization [facility] Address [address] [place] [address] Care Team Providers Care Brim Pouncer Machine Operator Name Role Phone Briana Medeiros MD Primary Care Provider [phone] Encounter Details Date Type Department Care Team (Latest Contact Info) Description 08/05/2020 9:39 AM [facility] Hospital Encounter [facility] DIAGNOSTIC RAD [facility] [address] [facility] [place] [address] Larry Alexander MD [address] [facility] 280 [place] [address] Discharge Disposition: Home or Self Care Social [...] ORAL ROUTE DAILY 11/28/2019 10/21/2020 nystatin (MYCOSTATIN) 095067 UNIT/GM powder Apply to affected area 2 [...] as needed. 10/12/2023 vitamin D, ergocalciferol, (DRISDOL) 42355 UNITS capsuleIndications:Othe r cirrhosis of liver (HCC) Take 50,000 Units by mouth every 7 days 0 02/02/2018 03/21/2023 documented as of this encounter Plan of Treatment Upcoming Encounters Date Type Department Care Team (Late st Contact Info) Description 07/09/2024 12:[address]ULTANT [place] [facility] [place] [address] [place] [address], [place] [address] Twin Miller MD [address] [place] [address] [place] [address] 09/19/2024 2:00 PM CDT Office Visit [facility] - Orthopedic Surgery [address] [place] [address] Larry Alexander MD [address] [facility] 280 [place] [address] documented as of this encounter Goals Goal [...] 2VW OR MORE Routine 08/05/2020 9:[address] Arthralgia of hip, unspecified laterality documented in this encounter Results * XR HIP RIGHT 2VW OR MORE (08/05/2020 9:[address]SULTANT) Anatomical Region Laterality Modality Pelvis, Lower Extremity Radiogra arh [facility] Imaging 08/05/2020 10:[address]SULT[address] Impressions 08/05/2020 10:[address] CONSULTANT IMPRESSION: 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 This report was electronically signed by SILAS NGUYỄN MD ??on 08/05/2020 10:07 AM . Narrative 08/05/2020 10:[address]SULT[address] Exam: 1. XR PELVIS 1 view 2. [...] documented as of this encounter Care Teams Brim Pouncer Machine Operator Relationship Specialty Start Date End Date Briana Medeiros MD [address] [place], [place] [id number] PCP - General 02/15/18 02/22/22 documented as of this encounter
--- OUTSIDE RECORDS SUMMARY | 2024-05-25 03:01 | XMS_ITS | Encounter Summary ---
Author Organization [facility] Address [address] [facility] [place] [address] Care Team Providers Care Parachute/Combatant Diver Officer Name Role Phone Briana Medeiros MD Primary Care Provider [phone] Encounter Details Date Type Department Care Team (Late st Contact Info) Description 09/04/2020 Orders Only [facility] - [address] [facility], [place] [address] Jackelyn Licona MD [address] [place] [address] Liver cirrhosis secondary to RAYGOZA (HCC) Social [...] st Contact Info) Description 07/09/2024 12:30 PM MARQUETRY WORKER Office Visit [facility] - GI [address] [facility], [place] [address] Twin Miller MD [facility]5 [facility] 2L [place] [address] 09/19/2024 2:00 PM CDT Office Visit [facility] - Orthopedic Surgery [address] [facility] [place] [address] Larry Alexander MD [address] [facility] 280 [place] [address] documented as of this encounter Goals Goal [...] WITH DIFFERENTIAL (09/05/2020 1:25 PM CDT) Pathologist [facility] White Blood Cell Count 10.3 3.8 - [...] 0.6 % [facility] Comment: Test Performed at: [facility] [place] [place] [id number] [place] [address] ??[id number] ROSS LOPEZ DO,MPH Blood BLOOD SPECIMEN / Unknown 09/05/2020 1:25 PM CDT 09/05/2020 1:26 PM CDT Jackelyn Licona MD LAB - HEMATOLOGY ORD ERABLES [facility] [address] [place] [address] * PT-INR (09/05/2020 1:25 PM CDT) [facility] INR 1.1 [facility] Comment: Reference Range ? 0.9-1.1 Moderate-intensity Warfarin Therapy 2.0-3.0 Higher-intensity Warfarin Therapy ?? 3.0-4.0 PT 11.1 9.0 - 11.5 sec [facility] Comment: For additional information, please refer to http://education.Atonarp/faq/RMN697 (This link is being provided for informational/ educational purposes only.) Test Performed at: [facility] [address] [place], [place] ??[phone] ROSS LOPEZ DO,MPH Blood BLOOD SPECIMEN / Unknown 09/05/2020 1:25 PM CDT 09/05/2020 1:26 PM CDT Jackelyn Licona MD LAB - COAGULATION OR DERABLES [facility] [address] [place] [address] * (ABNORMAL) COMPREHENSIVE METABOLIC PANEL (09/05/2020 1:25 PM CDT) Pathologist [facility] Glucose 109(H) 65 - 99 mg/dL [facility] [...] approximately 13% higher for people identified as -Jamaican. eGFR by MDRD 48(L) > OR = [...] 46 U/L [facility] Comment: Test Performed at: [facility] [address] [place] [address] ??[phone] ROSS LOPEZ DO,MPH Blood BLOOD SPECIMEN / Unknown 09/05/2020 1:25 PM CDT 09/05/2020 1:26 PM CDT Jackelyn Licona MD LAB - CHEMISTRY ROYCE KLINE Performing Organization Address [facility] de Phone Number [facility] [address] [place] [address] * ALPHA FETOPROTEIN BLOOD TUMOR MARKER (09/05/2020 1:25 PM CDT) Alpha-Fetoprotei n Tumor Marker 1.5 <6.1 ng/mL [facility] Comment: This test was performed using the Felx Eleno chemiluminescent method. Values obtained from different assay methods cannot be used interchangeably. AFP levels, regardless of value, should not be interpreted as absolute evidence of the presence or absence of disease. REPORT COMMENT: FASTING:YES Test Performed at: [facility] [address] [place] [address] ??[phone] ROSS LOPEZ DO,MPH Blood BLOOD SPECIMEN / Unknown 09/05/2020 1:25 PM CDT 09/05/2020 1:26 PM CDT Jackelyn Licona MD LAB - CHEMISTRY ROYCE KLINE Performing Organization Address 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
--- OUTSIDE RECORDS SUMMARY | 2024-05-25 03:01 | XMS_ITS | Encounter Summary ---
Author Organization [facility] Address [address] [place] [address] Care Team Providers Care Water Pump Operator Name Role Phone Briana Medeiros MD Primary Care Provider [phone] Encounter Details Date Type Department Care Team (Late st Contact Info) Description 07/18/2020 Orders Only [facility] - Orthopedics [address] [facility], [facility] [place] [address] Larry Alexander MD [address] [facility] 280 [place] [address] Arthralgia of hip, unspecified laterality Social History [...] Contact Info) Description 07/09/2024 12:30 PM MANAGER INVESTMENT BANKING Office Visit [facility] - GI [address] [facility], [place] [address] Twin Miller MD [facility]5 [facility] 2L [place] [address] 09/19/2024 2:00 PM CDT Office Visit [facility] - Orthopedic Surgery [address] [place] [address] Larry Alexander MD [address] [facility] 280 [place] [address] documented as of this encounter Goals Goal [...] PELVIS 1 OR 2VW (08/05/2020 9:55 AM MANAGER INVESTMENT BANKING) Anatomical Region Laterality Modality Pelvis Radiographic Shama ging 08/05/2020 10:0 3 AM MANAGER INVESTMENT BANKING Impressions 08/05/2020 10:07 AM MANAGER INVESTMENT BANKING IMPRESSION: 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 This report was electronically signed by SILAS NGUYỄN MD ??on 08/05/2020 10:07 AM . Narrative 08/05/2020 10:07 AM MANAGER INVESTMENT BANKING Exam: 1. XR PELVIS 1 view 2. [...] RIGHT 2VW OR MORE (08/05/2020 9:55 AM MANAGER INVESTMENT BANKING) Anatomical Region Laterality Modality Pelvis, Lower Extremity Radiogra [facility] 08/05/2020 10:0 3 AM MANAGER INVESTMENT BANKING Impressions 08/05/2020 10:07 AM MANAGER INVESTMENT BANKING IMPRESSION: 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 This report was electronically signed by SILAS NGUYỄN MD ??on 08/05/2020 10:07 AM . Narrative 08/05/2020 10:07 AM MANAGER INVESTMENT BANKING Exam: 1. XR PELVIS 1 view 2. [...] documented as of this encounter Care Teams Water Pump Operator Relationship Specialty Start Date End Date Briana Medeiros MD [address] [place], [place] [address] PCP - General 02/15/18 02/22/22 documented as of this encounter
--- OUTSIDE RECORDS SUMMARY | 2024-05-25 03:01 | XMS_ITS | Encounter Summary ---
Author Organization [facility] Address [address] [facility] [place] [address] Care Team Providers Care Plastics Fabrication Supervisor Name Role Phone Briana Medeiros MD Primary Care Provider [phone] Reason for Visit * Auth/Cert Specialty Diagnoses / Procedures Referred By Contac t Referred To Contact Diagnoses Liver cirrhosis secondary to RAYGOZA (HCC) Metabolic syndrome K75.81, K74.60 Liver cirrhosis secondary to RAYGOZA E88.81 Metabolic syndrome Procedures [place] ED EGD FLEX TRANSORAL DX [place] EGD FLEX TRANSORAL W BX SNGL OR MULT ESOPHAGOGASTRODUODENOSCOPY (EGD) DIAGNOSTIC Referral ID Status Reason Start Date Expiration Date Visits Re quested Visits Authorized [id number] 1 1 Encounter Details Date Type Department Care Team (Late st Contact Info) Description 07/03/2020 10:06 AM CLINICAL OPERATIONS LEADER Anesthesia Event [facility] END[facility] [place] [phone] Nika Cho MD [address] [place] [address] [place] [address] Anesthesia Record Procedure Summary Procedure Name Responsible [...] from Anesthesia Care COMPLICATIONS: No complications documented. ICAL OPERATIONS LEADER * Nika Cho MD - 07/03/2020 8:45 [...] with: patient, spouse ( [facility] telephone consent [phone]) Anesthetic Plan discussion was: Consented The patient's procedural Anesthetic Plan was discussed with the INDUSTRIAL INSULATOR and marketing operations assistant. Overall additional findings/comments: MAC with GA [...] puffy, itchy ??? Scopace [Scopolamine] Other and TAXI TRUCK DRIVER Dysfunction delirium ??? Tobramycin Eye Itching red [...] ??? S/P PICC central line placement 02/13/2019 [facility] VAT R basilic ??? Seizures ??? Squamous [...] N/A; TRACHEOSTOMY Lab Results: Invalid input(s): PREGTESTUR ICAL OPERATIONS LEADER documented in this encounter Miscellaneous Notes * Anesthesia Transfer of Care - Deidra Felix APRN-INDUSTRIAL INSULATOR - 07/03/2020 10:32 AM CST ANESTHESIA TRANSFER [...] puffy, itchy ??? Scopace [Scopolamine] Other and TAXI TRUCK DRIVER Dysfunction delirium ??? Tobramycin Eye Itching red [...] report from the receiving PACUteam. SYDNIE Troncoso ICAL OPERATIONS LEADER documented in this encounter Plan of Treatment Upcoming Encounters Date Type Department Care Team (Late st Contact Info) Description 07/09/2024 12:30 PM CLINICAL OPERATIONS LEADER Office Visit [facility] - GI [address] [place] [address], [place] [phone] Twin Miller MD [address] [place] [address] [place] [address] 09/19/2024 2:00 PM CDT Office Visit [facility] - Orthopedic Surgery [address] [place] [phone] Larry Alexander MD [address] [facility] 280 [place] [address] documented as of this encounter Goals Goal [...] Intra-op $ New Bag/Syringe 07/03/2020 9:55 AM CLINICAL OPERATIONS LEADER glycopyrrolate (ROBINUL) injection Intravenous, PRN, Starting on Kellen 07/03/20 at 1013, Until Kellen 07/03/20 at 1032, Anesthesia Intra-op $ Given 07/03/2020 10:13 AM CLINICAL OPERATIONS LEADER 0.2 mg lidocaine hcl (PF) (XYLOCAINE MPF) 2 % injection Infiltration, PRN, Starting on Kellen 07/03/20 at 1013, Until Kellen 07/03/20 at 1032, Anesthesia Intra-op $ Given 07/03/2020 10:13 AM CLINICAL OPERATIONS LEADER 100 mg propofol (DIPRIVAN) infusion Intravenous, CONTINUOUS PRN, Starting on Kellen 07/03/20 at 1013, Until Kellen 07/03/20 at 1032, Anesthesia Intra-op $ New Bag/Syringe 07/03/2020 10:13 AM CLINICAL OPERATIONS LEADER 165 mcg/kg/min 109.99 mL/hr propofol (DIPRIVAN) injection Intravenous, PRN, Starting on Kellen 07/03/20 at 1013, Until Kellen 07/03/20 at 1032, Anesthesia Intra-op $ Given 07/03/2020 10:18 AM CLINICAL OPERATIONS LEADER 50 mg $ Given 07/03/2020 10:13 AM CLINICAL OPERATIONS LEADER 100 mg documented in this encounter Additional Health Concerns Infection Onset Date Last Indicated Resolved Time 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
--- OUTSIDE RECORDS SUMMARY | 2024-05-25 03:01 | XMS_ITS | Encounter Summary ---
Author Organization [facility] Address [address] [facility] [place] [address] Care Team Providers Care Soakers Supervisor Name Role Phone Briana Medeiros MD Primary Care Provider [phone] Reason for Visit * Auth/Cert Specialty Diagnoses / Procedures Referred By Contsara t Referred To Contact Diagnoses Liver cirrhosis secondary to RAYGOZA (HCC) Metabolic syndrome K75.81, K74.60 Liver cirrhosis secondary to RAYGOZA E88.81 Metabolic syndrome Procedures [place] ED EGD FLEX TRANSORAL DX [place] EGD FLEX TRANSORAL W BX SNGL OR MULT ESOPHAGOGASTRODUODENOSCOPY (EGD) DIAGNOSTIC Referral ID Status Reason Start Date Expiration Date Visits Re quested Visits Authorized [id number] 1 1 Encounter Details Date Type Department Care Team (Late st Contact Info) Description 07/03/2020 9:30 AM [facility] - 07/03/2020 10:00 AM [facility] Surgery [facility] [address] [place] [address] Jackelyn Licona MD [address] [place] [address] ESOPHAGOGASTRODUODENOSCOPY (EGD) DIAGNOSTIC--[facility] Surgery Details Date/Time Status Location OR Service Patient Class Case Class Case Type Trauma Case? 07/03/2020 9:30 AM Posted [facility] Endoscopy ENDO 4 Gastroenterology Surgery Day Care [...] Comments Blood Pressure 153/107 07/03/2020 8:28 AM [facility] Pulse 86 07/03/2020 8:28 AM Y[facility]ER Temperature 36.7 ??C (98 ??F) 07/03/2020 8:28 AM YAM CURER Respiratory Rate 24 07/03/2020 8:28 AM Y[facility] Oxygen Saturation 97% 07/03/2020 8:28 AM [facility] Inhaled Oxygen Concentration 96% 07/03/2020 8 :28 AM YAM [facility]ER Weight 111.1 kg (245 lb) 07/03/2020 8:15 AM YAM CURER Height 180.3 cm (5' 11 ) 07/03/2020 8:15 AM [facility] Body Mass Index 34.17 07/03/2020 8:15 AM YAM CURER documented in this encounter Functional Status Functional [...] Erika Gama RN - 07/03/2020 10:48 AM YAM CURER Images from the original note were not [...] ask them during your visits. ?? Copyright [facility] 2020 Information is for End User's use only and may not be sold, redistributed or otherwise used for commercial purposes. All illustrations and images included in CareNotes?? are the copyrighted property of [email or web address]. or Dely The above information is an sanitarian aide only. It is not intended as medical advice for individual conditions or treatments. Talk to your doctor, nurse or pharmacist before following any medical regimen to see if it is safe and effective for you. CURER documented in this encounter Medications at Time [...] ORAL ROUTE DAILY 11/28/2019 10/21/2020 nystatin (MYCOSTATIN) 253312 UNIT/GM powder Apply to affected area 2 [...] as needed. 10/12/2023 vitamin D, ergocalciferol, (DRISDOL) 90505 UNITS capsuleIndications:Othe r cirrhosis of liver (HCC) [...] ??? S/P PICC central line placement 02/13/2019 [facility] VAT R basilic ??? Seizures ??? [...] puffy, itchy ??? Scopace [Scopolamine] Other and MOLASSES COLORING OPERATOR Dysfunction delirium ??? Tobramycin Eye Itching [...] there are no changes. Jackelyn Licona MD CURER documented in this encounter Plan of Treatment Upcoming Encounters Date Type Department Care Team (Late st Contact Info) Description 07/09/2024 12:30 PM YAM CURER Office Visit [facility] - GI [address] [facility], [place] [address] Twin Miller MD [facility] [place] [address] 09/19/2024 2:00 PM CDT Office Visit [facility] - Orthopedic Surgery [address] [place] [phone] Larry Alexander MD [address] [facility] 280 [place] [address] documented as of this encounter Goals Goal [...] PATHOLOGY TISSUE Routine 07/03/2020 10:2 0 AM YAM CURER Liver cirrhosis secondary to RAYGOZA (HCC) Metabolic syndrome [place] ED EGD FLEX TRANSORAL DX 07/03/2020 10:14 AM YAM CURER Liver cirrhosis secondary to RAYGOZA (HCC) Metabolic syndrome Special Needs EGD Mason Keys [address] Licona Thanks!! EGD Routine 07/03/2020 10:03 AM [facility]ER GLUCOSE - POINT OF CARE Routine 07/03/2020 8:27 AM YAM CURER documented in this encounter Results * PATHOLOGY TISSUE (07/03/2020 10:20 AM YAM CURER) Case Report Surgical Pathology Report ? Case: [id number] ? Authorizing Provider: ??Jackelyn Licona MD ? Collected: ? 07/03/2020 10:20 AM ? Ordering Location: ? [facility] ?Received: ?07/03/2020 11:20 AM ? Pathologist: ? Jayshree Merino MD ? Specimen: ?Esophagus, esophageal erythema bx ? 07/04/2020 6:22 PM YAM CURER [facility] Final Diagnosis Esophagus, erythema, biopsy (A): - Focal parakeratosis, see comment 07/04/2020 6:22 PM [facility] Microscopic Description and Comment The esophageal biopsy has a small focus of parakeratosis but is otherwise without significant findings (no inflammation, erosion, or prominent reactive changes). Given the focal parakeratosis, a GMS stain was performed, but is negative for yeast or pseudohyphae. 07/04/2020 6:22 PM [facility]OLOGY LAB Clinical History The patient is a 69 year old man with a history of cirrhosis who presented for variceal surveillance . Operative procedure/findings: EGD - multiple plaques in the middle third of the esophagus, biopsied. 07/04/2020 6:22 PM [facility] Gross Description The requisition and specimen(s) are labeled with the patient's name, Mason Keys. Received in formalin, specimen A , are 2 turner-white tissue fragments each measuring 0.5 x 0.2 x 0.1 cm. The specimen is submitted in toto in cassette A1.OW 07/04/2020 6:22 PM [facility] Disclaimer The performance characteristics of all immunohistochemical and indirect immunofluorescence stains (if any) cited in this report were determined by the Histopathology Laboratory of [facility]. Some of these tests [...] the attending (teaching) pathologist. 07/04/2020 6:22 PM [facility] LAB Embedded Images 07/04/2020 6:22 PM [facility] LAB Biopsy, NOS REGION OF ESOPHAGUS / Unknown 07/03/2020 10:20 AM [facility]ER 07/03/2020 11:20 AM [facility] Comment:Pre-op diagnosis: K75.81, K74.60 Liver cirrhosis secondary to RAYGOZA E88.81 Metabolic syndrome Jackelyn Licona MD LAB - PATHOLOGY/CYTO LOGY ORDERABLES [facility]Y LAB [address] [phone] * EGD (07/03/2020 10:03 AM YAM CURER) Report Endoscopy POC Endoscopy Department Report _ [...] ?of liver disease). ?- Return to Liver [facility] as previously scheduled. ? Attending Participation: ??I personally performed the entire procedure. ? Procedure Code(s): ? --- Professional --- ? 60062, Esophagogastroduod enoscopy, flexible, transoral; with biopsy, ? single or multiple Diagnosis Code(s): ?--- Professional --- ?K22.8, Other specified diseases of esophagus ?K31.89, Other diseases of stomach and duodenum ?K74.60, Unspecified cirrhosis of liver CPT copyright 2019 [employer]. All rights reserved. The codes documented in this report are preliminary and upon coatings inspector review may be revised to meet current compliance requirements. Jackelyn Licona, 07/03/2020 10:32:16 AM Note Initiated On: 07/03/2020 10:03 AM Number of Addenda: 0 ? [facility] ? [address] [place] [address] [facility] 07/03/2020 10:0 3 AM YAM CURER Jackelyn Licona MD GI PROCEDURE ORDERAB LES [facility] * (ABNORMAL) GLUCOSE - POINT OF CARE (07/03/2020 8:27 AM YAM CURER) Pathologist [facility] Glucose WB/POC 119(H) 70 - 115 mg/dL 07/03/2020 8:31 AM YAM CURER [facility] Specimen Type Venous 07/03/2020 8:31 AM YAM CURER [facility] Blood BLOOD SPECIMEN / Unknown 07/03/2020 8:27 AM [facility] 07/03/2020 8:31 AM [facility] Jackelyn Licona MD LAB - POINT OF CARE ORDERABLES [facility] [address] [place] [address], [facility] [phone] documented in this encounter Visit Diagnoses Diagnosis [...] Recently Administered Medications Times are shown in [facility]AM [facility]. Scheduled Medication Order 07/01/2020 07/02/2020 07/03/2020 0.9% [...] documented as of this encounter Care Teams Soakers Supervisor Relationship Specialty Start Date End Date Briana Medeiros MD [address] [place] [address] PCP - General 02/15/18 02/22/22 documented as of this encounter
--- OUTSIDE RECORDS SUMMARY | 2024-05-25 03:01 | XMS_ITS | Encounter Summary ---
Author Organization [facility] Address [address] [facility] [place] [address] Care Team Providers Care Lens Silverer Name Role Phone Briana Medeiros MD Primary Care Provider [phone] Reason for Referral * Radiology Services (Routine) - Closed Specialty Diagnoses / Procedures Referred By Contac t Referred To Contact Ultrasound Diagnoses Liver cirrhosis secondary to RAYGOZA (HCC) Procedures US ABDOMEN LIMITED Jackelyn Licona MD [address] [place] [address] [address] Referral ID Status Reason Start Date Expiration Date Visits Re quested Visits Authorized [id number] Closed 09/04/2020 09/04/2021 1 1 Reason for Visit * Radiology Services (Routine) - Closed Specialty Diagnoses / Procedures Referred By Contac t Referred To Contact Ultrasound Diagnoses Liver cirrhosis secondary to RAYGOZA (HCC) Procedures US ABDOMEN LIMITED Jackelyn Licona MD [address] [place] [address] [address] Referral ID Status Reason Start Date Expiration Date Visits Re quested Visits Authorized [id number] Closed 09/04/2020 09/04/2021 1 1 Encounter Details Date Type Department Care Team (Late st Contact Info) Description 09/19/2020 8:05 AM CDT - 09/19/2020 11:59 PM CDT Hospital Encounter [facility] [id number] [place] [address] Jackelyn Licona MD [address] [place] [phone] Discharge Disposition: Home or Self Care Social [...] ORAL ROUTE DAILY 11/28/2019 10/21/2020 nystatin (MYCOSTATIN) 694384 UNIT/GM powder Apply to affected area 2 [...] as needed. 10/12/2023 vitamin D, ergocalciferol, (DRISDOL) 62588 UNITS capsuleIndications:Othe r cirrhosis of liver (HCC) Take 50,000 Units by mouth every 7 days 0 02/02/2018 03/21/2023 documented as of this encounter Plan of Treatment Upcoming Encounters Date Type Department Care Team (Late st Contact Info) Description 07/09/2024 12:30 PM GEOLOGY INSTRUCTOR Office Visit [facility] - GI [address] [place] [address], [place] [address] Twin Miller MD [address] [place] [address] [place] [address] 09/19/2024 2:00 PM CDT Office Visit [facility] - Orthopedic Surgery [address] [place] [address] Larry Alexander MD [address] [facility] [address] [place] [address] documented as of this encounter Goals Goal [...] documented as of this encounter Care Teams Lens Silverer Relationship Specialty Start Date End Date Briana Medeiros MD [address] [place] [address] PCP - General 02/15/18 02/22/22 documented as of this encounter
--- OUTSIDE RECORDS SUMMARY | 2024-05-25 03:01 | XMS_ITS | Encounter Summary ---
Author Organization [facility] Address [address] [facility] [place] [address] Care Team Providers Care Conventional Mortgage Underwriter Name Role Phone Briana Medeiros MD Primary Care Provider [phone] Encounter Details Date Type Department Care Team [...] st Contact Info) Description 07/09/2024 12:30 PM BUILDING ILLUMINATING ENGINEER Office Visit [facility] - GI [address] [facility], [place] [address] Twin Miller MD [address] [facility] 2L [facility] [place] [address] 09/19/2024 2:00 PM CDT Office Visit [facility] - Orthopedic Surgery [address] [facility] [place] [address] Larry Alexander MD [address] [facility] 280 [place] [address] documented as of this encounter Goals Goal [...] documented as of this encounter Care Teams Conventional Mortgage Underwriter Relationship Specialty Start Date End Date Briana Medeiros MD [address] [place] [address] PCP - General 02/15/18 02/22/22 documented as of this encounter
--- OUTSIDE RECORDS SUMMARY | 2024-05-25 03:01 | XMS_ITS | Encounter Summary ---
Author Organization [facility] Address [address] [facility] [place] [address] Care Team Providers Care Erecting Engineer Name Role Phone Briana Medeiros MD Primary Care Provider [phone] Encounter Details Date Type Department Care Team (Late st Contact Info) Description 08/26/2020 2:00 PM CDT Procedure visit [facility] - [address] [phone] Shireen Celestin MD [address] [place] [phone] Liver cirrhosis secondary to RAYGOZA (HCC) [...] patients with nonalcoholic fatty liver disease. Gastroenterology 2019;156:2922-6062. Rico MS, Lina R, Van Jasen ML, [...] FIB4 score (Teenauke et al. Hepatology Communications 2019;3:0677-8312) or NAFLD Fibrosis score (Lutz et al. Clinical Gastroenterology and Hepatology 2019;17:0257-9566. from routine clinical data. 3. Liver stiffness [...] change as additional supporting data becomes available. [email or web address] documented in this encounter Procedure Notes * Kendrick Duran MD - 08/31/2020 9:47 PM CDTAssociated Order(s): PROC FIBROSCAN Procedure(s): SD LIVER ELASTOGRAPHY Pre-Procedure Diagnose(s): Liver cirrhosis secondary [...] patients with nonalcoholic fatty liver disease. Gastroenterology 2019;156:5008-0191. Rico MS, Lina R, Van Jasen ML, [...] FIB4 score (Davyduke et al. Hepatology Communications 2019;3:1271-7600) or NAFLD Fibrosis score (Lutz et al. Clinical Gastroenterology and Hepatology 2019;17:3870-3443. from routine clinical data. 3. Liver stiffness [...] change as additional supporting data becomes available. [email or web address] documented in this encounter Plan of Treatment Upcoming Encounters Date Type Department Care Team (Late st Contact Info) Description 07/09/2024 12:30 PM POSTAGE MACHINE OPERATOR Office Visit [facility] - GI [address] [place] [address], [place] [address] Twin Miller MD [address] [place] [address] DIV [place]STR[place] [address] 09/19/2024 2:00 PM CDT Office Visit [facility] - Orthopedic Surgery [address] [facility] [place] [address] Larry Alexander MD [address] [facility] 280 [place] [address] documented as of this encounter Goals Goal [...] Procedure Name Priority Date/Time Associated Diagnosis Comments SD LIVER ELASTOGRAPHY Routine 08/31/2020 9:47 PM CDT Liver cirrhosis secondary to RAYGOZA (HCC) Metabolic syndrome documented in this encounter Results * SD LIVER ELASTOGRAPHY (08/31/2020 9:47 PM CDT) Narrative [...] patients with nonalcoholic fatty liver disease. Gastroenterology 2019;156:5864-7371. Rico MS, Lina R, Van Jasen ML, [...] FIB4 score (Esvine et al. Hepatology Communications 2019;3:6863-6556) or NAFLD Fibrosis score (Lutz et al. Clinical Gastroenterology and Hepatology 2019;17:9863-0313. from routine clinical data. 3. Liver stiffness [...] change as additional supporting data becomes available. [email or web address] Jackelyn Licona MD PROCEDURE/MINOR SURG ICAL ORDERABLES [...] documented as of this encounter Care Teams Erecting Engineer Relationship Specialty Start Date End Date Briana Medeiros MD [address] [place], [place] [address] PCP - General 02/15/18 02/22/22 documented as of this encounter
--- OUTSIDE RECORDS SUMMARY | 2024-05-25 03:01 | XMS_ITS | Encounter Summary ---
Author Organization [facility] Address [address] [facility] [place] [address] Care Team Providers Care Expander Name Role Phone Briana Medeiros MD Primary Care Provider [phone] Reason for Visit * Reason Comments Follow-up Encounter Details Date Type Department Care Team (Late st Contact Info) Description 02/07/2020 1:00 PM CDT Office Visit [facility] - Orthopedics [address] [place] [address], [facility] [place] [address] Ronald Murray MD [address] [place] [address] [place] [address] T12 compression fracture, sequela (Primary [...] Rivers MD - 02/07/2020 1:55 PM CDT [facility] Department of Orthopaedic Surgery Orthopaedic Spine Clinic Discharge Form Mason Keys 02/07/2020 Thank you for coming in to see us today for your diagnosis of: T12 compression fracture, sequela Recommended Treatment: Observation No follow-up appointment is needed. Please call to follow-up if your symptoms worsen or fail to improve. Mr. Keys had a clinic appointment on 02/07/2020. Please call Yudy Markham RN, at [phone] with any questions or concerns. documented in this encounter Progress Notes * Dominik Rivers MD - 02/07/2020 1:46 PM CDT [facility] Orthopedic Spine Surgery Clinic Note Mason Keys, 69 year old, male : 1950 [facility]: [id number] Primary Care Physician: Briana Medeiros MD Diagnosis/Procedures [...] ??? S/P PICC central line placement 02/13/2019 [facility] R basilic ??? Seizures ??? Squamous [...] puffy, itchy ??? Scopace [Scopolamine] Other and ELECTROTYPE CASTER Dysfunction delirium ??? Tobramycin Eye Itching red [...] XL) 50 MG tablet ??? nystatin (NYSTOP) 090828 UNIT/GM powder ??? omeprazole (PRILOSEC) 40 MG [...] % cream ??? vitamin D, ergocalciferol, (DRISDOL) 19441 UNITS capsule No current facility-administered medications for [...] T12 compression deformity, thoracolumbar kyphosis Assessment/Plan: Mason eKys is a 69 year old male with T12 compression fracture - Patient was counseled to the nature of their diagnosis and demonstrated understanding - Lifting/Activity restrictions: none - Follow up PRN Dominik Rivers MD 02/07/2020 Associated attestation - Ronald Murray MD - 02/07/2020 9:02 PM CDT Patient is seen with the orthopedic housesmith. His back pain is much improved. He is now takingTylenol every 3rd day. Patient has radiographs of the thoracolumbar compression fracture unchanged. Impression, overall doing satisfactory Plan: Patient will continue with his activities as tolerated discontinue his brace and follow up with us on an as-needed basis only. This dictation was created by using M Mod[employer] Fluency Direct. Please excuse any cloth printing utility worker errors. Ronald Murray MD documented in this encounter Plan of Treatment Upcoming Encounters Date Type Department Care Team (Late st Contact Info) Description 07/09/2024 12:30 PM CORSET MAKER Office Visit [facility] - GI [address] [place] [address], [place] [phone] Twin Miller MD [address] [place] [address] [place] [address] 09/19/2024 2:00 PM CDT Office Visit [facility] - Orthopedic Surgery [address] [place] [address] Larry Alexander MD 10[address] [facility] 280 [place] [address] documented as of this encounter Goals Goal [...] documented as of this encounter Care Teams Expander Relationship Specialty Start Date End Date Briana Medeiros MD [address] [place] [address] PCP - General 02/15/18 02/22/22 documented as of this encounter
--- OUTSIDE RECORDS SUMMARY | 2024-05-25 03:01 | XMS_ITS | Encounter Summary ---
Author Organization [facility] Address [address] [place] [address] Care Team Providers Care Branch Account Manager Name Role Phone Briana Medeiros MD Primary Care Provider Reason for Visit * Auth/Cert Specialty Diagnoses / Procedures Referred By Contac t Referred To Contact Diagnoses Liver cirrhosis secondary to RAYGOZA (HCC) Metabolic syndrome K75.81, K74.60 Liver cirrhosis secondary to RAYGOZA E88.81 Metabolic syndrome Procedures PA ED EGD FLEX TRANSORAL DX PA EGD FLEX TRANSORAL W BX SNGL OR MULT ESOPHAGOGASTRODUODENOSCOPY (EGD) DIAGNOSTIC Referral ID Status Reason Start Date Expiration Date Visits Re quested Visits Authorized [id number] 1 1 Encounter Details Date Type Department Care Team (Late st Contact Info) Description 07/03/2020 7:48 AM FLOATLIGHT POWDER MIXER - 07/03/2020 11:18 AM [facility] Hospital Encounter [facility] [address] [place] [address] Jackelyn Licona MD [address] [place] [address] Gastroenterology Discharge Disposition: Home or Self Care [...] Comments Blood Pressure 138/97 07/03/2020 10:45 AM FLOATLIGHT POWDER MIXER Pulse 90 07/03/2020 10:45 AM FLOATLIGHT POWDER MIXER Temperature 36.7 ??C (98 ??F) 07/03/2020 8:28 AM FLOATLIGHT POWDER MIXER Respiratory Rate 31 07/03/2020 10:45 AM FLOATLIGHT POWDER MIXER Oxygen Saturation 94% 07/03/2020 10:45 AM FLOATLIGHT POWDER MIXER Inhaled Oxygen Concentration 96% 07/03/2020 8 :28 AM FLOATLIGHT POWDER MIXER Weight 111.1 kg (245 lb) 07/03/2020 8:15 AM FLOATLIGHT POWDER MIXER Height 180.3 cm (5' 11 ) 07/03/2020 8:15 AM FLOATLIGHT POWDER MIXER Body Mass Index 34.17 07/03/2020 8:15 AM FLOATLIGHT POWDER MIXER documented in this encounter Functional Status Functional [...] Erika Gama RN - 07/03/2020 10:48 AM FLOATLIGHT POWDER MIXER Images from the original note were not [...] ask them during your visits. ?? Copyright [employer] 2020 Information is for End User's use only and may not be sold, redistributed or otherwise used for commercial purposes. All illustrations and images included in CareNotes?? are the copyrighted property of [email or web address]. or [employer], a Division of [employer] The above information is an physician aide only. It is not intended as medical advice for individual conditions or treatments. Talk to your doctor, nurse or pharmacist before following any medical regimen to see if it is safe and effective for you. TLIGHT POWDER MIXER documented in this encounter Medications at Time [...] ORAL ROUTE DAILY 11/28/2019 10/21/2020 nystatin (MYCOSTATIN) 818876 UNIT/GM powder Apply to affected area 2 [...] as needed. 10/12/2023 vitamin D, ergocalciferol, (DRISDOL) 21063 UNITS capsuleIndications:Othe r cirrhosis of liver (HCC) [...] puffy, itchy ??? Scopace [Scopolamine] Other and SALES REPRESENTATIVE SUPERVISOR Dysfunction delirium ??? Tobramycin Eye Itching red [...] there are no changes. Jackelyn Licona MD TLIGHT POWDER MIXER documented in this encounter Plan of Treatment Upcoming Encounters Date Type Department Care Team (Late st Contact Info) Description 07/09/2024 12:30 PM FLOATLIGHT POWDER MIXER Office Visit [facility] - GI [address] [place] [address], [facility] [place] [address] Twin Miller MD [address] [place] [address] [place] [address] 09/19/2024 2:00 PM CDT Office Visit [facility] - Orthopedic Surgery [address] [facility] [place] [phone] Larry Alexander MD 10[address] [facility] 280 [place] [address] documented as of this encounter Goals Goal [...] PATHOLOGY TISSUE Routine 07/03/2020 10:2 0 AM FLOATLIGHT POWDER MIXER Liver cirrhosis secondary to RAYGOZA (HCC) Metabolic syndrome PA ED EGD FLEX TRANSORAL DX 07/03/2020 10:14 AM FLOATLIGHT POWDER MIXER Liver cirrhosis secondary to RAYGOZA (HCC) Metabolic syndrome Special Needs EGD Mason Keys [address] Licona Thanks!! EGD Routine 07/03/2020 10:03 AM FLOATLIGHT POWDER MIXER GLUCOSE - POINT OF CARE Routine 07/03/2020 8:27 AM FLOATLIGHT POWDER MIXER documented in this encounter Results * PATHOLOGY TISSUE (07/03/2020 10:20 AM FLOATLIGHT POWDER MIXER) Case Report Surgical Pathology Report ? Case: [id number] ? Authorizing Provider: ??Jackelyn Licona MD ? Collected: ? 07/03/2020 10:20 AM ? Ordering Location: ? [facility] ?Received: ?07/03/2020 11:20 AM ? Pathologist: ? Jayshree Merino MD ? Specimen: ?Esophagus, esophageal erythema bx ? 07/04/2020 6:22 PM [facility] Final Diagnosis Esophagus, erythema, biopsy (A): - Focal parakeratosis, see comment 07/04/2020 6:22 PM [facility] Microscopic Description and Comment The esophageal biopsy has a small focus of parakeratosis but is otherwise without significant findings (no inflammation, erosion, or prominent reactive changes). Given the focal parakeratosis, a GMS stain was performed, but is negative for yeast or pseudohyphae. 07/04/2020 6:22 PM [facility] Clinical History The patient is a 69 year old man with a history of cirrhosis who presented for variceal surveillance . Operative procedure/findings: EGD - multiple plaques in the middle third of the esophagus, biopsied. 07/04/2020 6:22 PM [facility] Gross Description The requisition and specimen(s) are labeled with the patient's name, Mason Keys. Received in formalin, specimen A , are 2 turner-white tissue fragments each measuring 0.5 x 0.2 x 0.1 cm. The specimen is submitted in toto in cassette A1.OW 07/04/2020 6:22 PM [facility] Disclaimer The performance characteristics of all immunohistochemical and indirect immunofluorescence stains (if any) cited in this report were determined by the Histopathology Laboratory of [facility]. Some of these tests were [...] the attending (teaching) pathologist. 07/04/2020 6:22 PM [facility] Embedded Images 07/04/2020 6:22 PM [facility] Biopsy, NOS REGION OF ESOPHAGUS / Unknown 07/03/2020 10:20 AM FLOATLIGHT POWDER MIXER 07/03/2020 11:20 AM FLOATLIGHT POWDER MIXER Comment:Pre-op diagnosis: K75.81, K74.60 Liver cirrhosis secondary to RAYGOZA E88.81 Metabolic syndrome Jackelyn Licona MD LAB - PATHOLOGY/CYTO LOGY ORDERABLES [facility] [address] [place] [address], [facility] [phone] * EGD (07/03/2020 10:03 AM FLOATLIGHT POWDER MIXER) Report Endoscopy POC Endoscopy Department Report _ [...] Procedure Code(s): ? --- Professional --- ? 99588, Esophagogastroduod enoscopy, flexible, transoral; with biopsy, ? single or multiple Diagnosis Code(s): ?--- Professional --- ?K22.8, Other specified diseases of esophagus ?K31.89, Other diseases of stomach and duodenum ?K74.60, Unspecified cirrhosis of liver CPT copyright 2019 [employer]. All rights reserved. The codes documented in this report are preliminary and upon deli worker review may be revised to meet current compliance requirements. Jackelyn Licona, 07/03/2020 10:32:16 AM Note Initiated On: 07/03/2020 10:03 AM Number of Addenda: 0 ? [facility] ? [address] [place] [address] [facility] 07/03/2020 10:0 3 AM FLOATLIGHT POWDER MIXER Jackelyn Licona MD GI PROCEDURE ORDERAB LES [facility] * (ABNORMAL) GLUCOSE - POINT OF CARE (07/03/2020 8:27 AM FLOATLIGHT POWDER MIXER) Glucose WB/POC 119(H) 70 - 115 mg/dL 07/03/2020 8:31 AM FLOATLIGHT POWDER MIXER [facility] Specimen Type Venous 07/03/2020 8:31 AM FLOATLIGHT POWDER MIXER [facility] Blood BLOOD SPECIMEN / Unknown 07/03/2020 8:27 AM FLOATLIGHT POWDER MIXER 07/03/2020 8:31 AM FLOATLIGHT POWDER MIXER Jackelyn Licona MD LAB - POINT OF CARE ORDERABLES Performing Organization Address City/[facility]/ZIP Co de Phone Number [facility] [address] [place] [phone], [facility] [phone] documented in this encounter Visit Diagnoses Diagnosis [...] Recently Administered Medications Times are shown in FLOATLIGHT POWDER MIXER. Scheduled Medication Order 07/01/2020 07/02/2020 07/03/2020 0.9% [...] documented as of this encounter Care Teams Branch Account Manager Relationship Specialty Start Date End Date Briana Medeiros MD [address] [place], [place] [phone] PCP - General 02/15/18 02/22/22 documented as of this encounter
--- OUTSIDE RECORDS SUMMARY | 2024-05-25 03:01 | XMS_ITS | Encounter Summary ---
Author Organization [facility] Address [address] [facility] [place] [address] Care Team Providers Care Well Blower Name Role Phone Briana Medeiros MD Primary Care Provider [phone] Encounter Details Date Type Department Care Team (Late Contact Info) Description 12/29/2020 Orders Only [facility] - [address] [facility] [place] [phone] Neva Oliver, RN Cirrhosis of liver without [...] (Late Contact Info) Description 07/09/2024 12:30 PM BUSINESS SYSTEMS ADVISOR Office Visit [facility] - GI [address] [facility], [place] [address] Twin Miller MD [facility] [place] [address] 09/19/2024 2:00 PM CDT Office Visit [facility] - Orthopedic Surgery [address] [facility] [place] [address] Larry Alexander MD [address] [facility] 280 [place] [address] documented as of this encounter Goals Goal [...] documented as of this encounter Care Teams Well Blower Relationship Specialty Start Date End Date Briana Medeiros MD [address] [place] [address] PCP - General 02/15/18 02/22/22 documented as of this encounter
--- OUTSIDE RECORDS SUMMARY | 2024-05-25 03:01 | XMS_ITS | Encounter Summary ---
Author Organization [facility] Address [address] [facility] [place] [address] Care Team Providers Care Tag And Label Cutter Name Role Phone Briana Medeiros MD Primary Care Provider [phone] Encounter Details Date Type Department Care Team (Late st Contact Info) Description 02/07/2020 1:06 PM CDT Hospital Encounter [facility] DIAGNOSTIC RAD CSM [address] [facility] [place] [address] Ronald Murray MD [facility]5 [facility] [place] [address] Discharge Disposition: Home or Self [...] 10-325 MG tablet 12/31/2019 02/26/2020 nystatin (MYCOSTATIN) 839777 UNIT/GM powder Apply to affected area 2 [...] as needed. 10/12/2023 vitamin D, ergocalciferol, (DRISDOL) 55916 UNITS capsuleIndications:Oth er cirrhosis of liver (HCC) Take 50,000 Units by mouth every 7 days 0 02/02/2018 03/21/2023 documented as of this encounter Plan of Treatment Upcoming Encounters Date Type Department Care Team (Late st Contact Info) Description 07/09/2024 12:30 PM MAGNETIC RESONANCE IMAGING DIRECTOR Office Visit [facility] - [address] [place] [phone] ElbeTwin craven MD [address] [place] [address] 09/19/2024 2:00 PM CDT Office Visit [facility] - Orthopedic Surgery [address] [place] [address] Larry Alexander MD [address] [facility] [address] [place] [address] documented as of this encounter Goals Goal [...] T12. This report was electronically signed by EVLEIA LÓPEZ ??on 02/07/2020 1:38 PM . Narrative [...] documented as of this encounter Care Teams Tag And Label Cutter Relationship Specialty Start Date End Date Briana Medeiros MD [address] [place], [place] [phone] PCP - General 02/15/18 02/22/22 documented as of this encounter
--- OUTSIDE RECORDS SUMMARY | 2024-05-25 03:01 | XMS_ITS | Encounter Summary ---
Author Organization [facility] Address [address] [facility] [place] [address] Care Team Providers Care Staff Pharmacist Hospital Name Role Phone Briana Medeiros MD Primary Care Provider [phone] Encounter Details Date Type Department Care Team [...] st Contact Info) Description 07/09/2024 12:30 PM TUB TENDER Office Visit [facility] - GI [address] [facility], [place] [address] Twin Miller MD [address] [facility] [address] [facility] [place] [address] 09/19/2024 2:00 PM CDT Office Visit [facility] - Orthopedic Surgery [address] [facility] [place] [phone] Larry Alexander MD [address] [facility] [address] [place] [address] documented as of this encounter Goals Goal [...] documented as of this encounter Care Teams Staff Pharmacist Hospital Relationship Specialty Start Date End Date Briana Medeiros MD [address] [place] [address] PCP - General 02/15/18 02/22/22 documented as of this encounter
--- OUTSIDE RECORDS SUMMARY | 2024-05-25 03:01 | XMS_ITS | Encounter Summary ---
Author Organization [facility] Address [address] [facility] [place] [address] Care Team Providers Care Filling Room Operator Name Role Phone Briana Medeiros MD Primary Care Provider [phone] Encounter Details Date Type Department Care Team (Late st Contact Info) Description 02/06/2020 Orders Only [facility] - Orthopedics [address] [place] [address], [place] [address] Ronald Murray MD [address] [place] [address] [place] [address] Arthralgia of hip, unspecified laterality [...] st Contact Info) Description 07/09/2024 12:30 PM LASER SET UP OPERATOR Office Visit [facility] - GI [address] [facility], [place] [address] Twin Miller MD [facility]5 [facility] 2L [place] [address] 09/19/2024 2:00 PM CDT Office Visit [facility] - Orthopedic Surgery [address] [place] [phone] Larry Alexander MD 1031 [facility] 280 [place] [address] documented as of this encounter Goals Goal [...] documented as of this encounter Care Teams Filling Room Operator Relationship Specialty Start Date End Date Briana Medeiros MD [address] [place] [address] PCP - General 02/15/18 02/22/22 documented as of this encounter
--- OUTSIDE RECORDS SUMMARY | 2024-05-25 03:01 | XMS_ITS | Encounter Summary ---
Author Organization [facility] Address [address] [facility] [place] [address] Care Team Providers Care Plexiglas Former Name Role Phone Briana Medeiros MD Primary Care Provider [phone] Reason for Visit * Reason Onset Date Comments Pre-op Instructions 06/25/2020 Encounter Details Date Type Department Care Team (Late st Contact Info) Description 06/25/2020 Patient Outreach [facility] [address] [place] [address] Guadalupe Rick, RN Pre-op Instructions Social History [...] Guadalupe Rick, DONTAE - 06/25/2020 2:09 PM STOCK MANAGER Pt confirmed procedure and expressed understanding of all instructions. Pt has a equipment driver, will arrive 1 hour prior to procedure, and will not take anticoagulants for 48 hours prior to procedure. Pt provided number to department for questions or concerns. K MANAGER documented in this encounter Plan of Treatment Upcoming Encounters Date Type Department Care Team (Late st Contact Info) Description 07/09/2024 12:30 PM STOCK MANAGER Office Visit [facility] - GI [address] [place] [address], [place] [address] Twin Miller MD [address] [place] [address] OF [place] [address] 09/19/2024 2:00 PM CDT Office Visit [facility] - Orthopedic Surgery [address] [facility] [place] [address] Larry Alexander MD 10[address] [facility] [address] [place] [address] documented as of this encounter Goals Goal [...] 023 12:04 PM CDT) No Nita [place], ODNTAE Note: Expected end date: 08/05/2019 The goal [...] documented as of this encounter Care Teams Plexiglas Former Relationship Specialty Start Date End Date Briana Medeiros MD [address] [place], [place] [address] PCP - General 02/15/18 02/22/22 documented as of this encounter
--- OUTSIDE RECORDS SUMMARY | 2024-05-25 03:01 | XMS_ITS | Encounter Summary ---
Author Organization [facility] Address [address] [facility] [place] [address] Care Team Providers Care Manager Domestic Name Role Phone Briana Medeiros MD Primary Care Provider [phone] Reason for Referral * Radiology Services (Routine) - Closed Specialty Diagnoses / Procedures Referred By Contac t Referred To Contact Ultrasound Diagnoses Liver cirrhosis secondary to RAYGOZA (HCC) Procedures US ABDOMEN LIMITED Kizzy Licona MD [address] [place] [address] [facility] [address] [place] [address] Referral ID Status Reason Start Date Expiration Date Visits Re quested Visits Authorized [id number] Closed 09/04/2020 09/04/2021 1 1 Reason for Visit * Reason Comments Cirrhosis metoprolol 100 mg, t ook self off duloxetine Encounter Details Date Type Department Care Team (Late st Contact Info) Description 08/26/2020 2:30 PM CDT Office Visit [facility] - GI [address] [facility] [place] [place] [address] Shireen Celestin MD [address] [address] Kizzy Licona MD [address] [place] [address] Liver cirrhosis secondary to RAYGOZA (HCC) (Primary [...] Body Mass Index 35.34 07/03/2020 8:15 AM REJECT OPENER AND FILLER documented in this encounter Functional Status Functional [...] Licona MD - 08/26/2020 2:30 PM CDT [facility] Kizzy Licona MD Referring Provider: Provider Unknown PCP: Briana Medeiros MD Interval history and subjective concerns: I had the pleasure of meeting Mason Keys at the [facility] on 08/26/2020. This is a [...] drink alcohol. Tobacco: He did smoke from [phone]. Chronic medical problems: Afib on eliquis CAD, [...] % 16 - 50 % 5 (L) Opveu-2-Scqdwxlcgyc 90 - 200 mg/dL 223 (H) Phenotype [...] prior to that visit. Kizzy Licona MD Smoking Tobacco Cutter Operator Division of Gastroenterology and Hepatology No [...] by mouth once daily ??? nystatin (NYSTOP) 847734 UNIT/GM powder Apply to affected area 2 [...] as needed. ??? vitamin D, ergocalciferol, (DRISDOL) 04833 UNITS capsule Take 50,000 Units by mouth [...] st Contact Info) Description 07/09/2024 12:30 PM REJECT OPENER AND FILLER Office Visit [facility] - GI [address] [place] [address], [place] [address] Twin Miller MD [address] [place] [address] [place] [address] 09/19/2024 2:00 PM CDT Office Visit [facility] - Orthopedic Surgery [facility] [place] [address] [place] [address] [place] [address] [address] [place] [address] documented as of this encounter Goals Goal [...] 0.6 % [facility] Comment: Test Performed at: [employer] [address] [place], [place] ??[address] ROSS LOPEZ DO,MPH Blood BLOOD SPECIMEN / Unknown 09/05/2020 1:25 PM CDT 09/05/2020 1:26 PM CDT Kizzy Licona MD LAB - HEMATOLOGY ORD ERABLES Performing Organization Address [facility] de Phone Number [facility] [address] [place] [address] * PT-INR (09/05/2020 1:25 PM CDT) INR 1.1 [facility] Comment: Reference Range ? 0.9-1.1 Moderate-intensity Warfarin Therapy 2.0-3.0 Higher-intensity Warfarin Therapy ?? 3.0-4.0 PT 11.1 9.0 - 11.5 sec [facility] Comment: For additional information, please refer to http://education.Movea/faq/WGJ243 (This link is being provided for informational/ educational purposes only.) Test Performed at: [facility] [address] [place], [place] ??[address] ROSS LOPEZ DO,MPH Blood BLOOD SPECIMEN / Unknown 09/05/2020 1:25 PM CDT 09/05/2020 1:26 PM CDT Kizzy Licona MD LAB - COAGULATION OR DERABLES Performing Organization Address [facility] de Phone Number [facility] [address] [place] [address] * (ABNORMAL) COMPREHENSIVE METABOLIC PANEL (09/05/2020 1:25 [...] approximately 13% higher for people identified as -English. eGFR by MDRD 48(L) > OR = [...] 46 U/L [facility] Comment: Test Performed at: [employer] [facility] ??[address] ROSS LOPEZ DO,MPH Blood BLOOD SPECIMEN / Unknown 09/05/2020 1:25 PM CDT 09/05/2020 1:26 PM CDT Kizzy Licona MD LAB - CHEMISTRY ROYCE KLINE [facility] [address] [place] [address] * ALPHA FETOPROTEIN BLOOD TUMOR MARKER (09/05/2020 1:25 PM CDT) Alpha-Fetoprotei n Tumor Marker 1.5 <6.1 ng/mL [facility] Comment: This test was performed using the Flex [place] chemiluminescent method. Values obtained from different assay methods cannot be used interchangeably. AFP levels, regardless of value, should not be interpreted as absolute evidence of the presence or absence of disease. REPORT COMMENT: FASTING:YES Test Performed at: [facility] [address] [place], [place] ??[address] ROSS LOPEZ DO,MPH Blood BLOOD SPECIMEN / Unknown 09/05/2020 1:25 PM CDT 09/05/2020 1:26 PM CDT Kizzy Licona MD LAB - CHEMISTRY ROYCE [facility] Organization Address City/State/ZIP Co de Phone Number [facility] [address] [place] [address] documented in this encounter Visit Diagnoses Diagnosis [...] as of this encounter Care Teams Manager Domestic Relationship Specialty Start Date End Date Briana Medeiros MD [address] [place] [address] PCP - General 02/15/18 02/22/22 documented as of this encounter
--- OUTSIDE RECORDS SUMMARY | 2024-05-25 03:01 | XMS_ITS | Encounter Summary ---
Author Organization [facility] Address [address] [facility] [place] [address] Care Team Providers Care Cable Installation Manager Name Role Phone Briana Medeiros MD Primary Care Provider [phone] Reason for Referral * Radiology Services (Routine) - Closed Specialty Diagnoses / Procedures Referred By Contac t Referred To Contact Ultrasound Diagnoses Liver cirrhosis secondary to RAYGOZA (HCC) Nonalcoholic steatohepatitis (RAYGOZA) Lower extremity edema Procedures US ABDOMEN LIMITED Jackelyn Licona MD [address] [place] [address] [place] [id number] [place] [address] Referral ID Status Reason Start Date Expiration Date Visits Re quested Visits Authorized [id number] Closed 03/09/2021 03/09/2022 1 1 Reason for Visit * Radiology Services (Routine) - Closed Specialty Diagnoses / Procedures Referred By Contac t Referred To Contact Ultrasound Diagnoses Liver cirrhosis secondary to RAYGOZA (HCC) Nonalcoholic steatohepatitis (RAYGOZA) Lower extremity edema Procedures US ABDOMEN LIMITED Jackelyn Licona MD [address] [place] [address] [facility] [address] [place] [address] Referral ID Status Reason Start Date Expiration Date Visits Re quested Visits Authorized [id number] Closed 03/09/2021 03/09/2022 1 1 Encounter Details Date Type Department Care Team (Late st Contact Info) Description 03/19/2021 12:12 PM CDT - 03/19/2021 11:59 PM CDT Hospital Encounter [place] [id number] [place] [address] Jackelyn Licona MD [address] [place] [address] Discharge Disposition: Home or Self Care Social [...] mouth 2 times daily 10/12/2023 nystatin (MYCOSTATIN) 650950 UNIT/GM powder Apply to affected area 2 [...] of the Body, eyes 10/12/2023 Spacer/Aero-Holding Chambers ([facility]) MISC as directed 11/17/2020 10/12/2023 [...] as needed. 10/12/2023 vitamin D, ergocalciferol, (DRISDOL) 57939 UNITS capsuleIndications:Oth er cirrhosis of liver (HCC) Take 50,000 Units by mouth every 7 days 0 02/02/2018 03/21/2023 documented as of this encounter Plan of Treatment Upcoming Encounters Date Type Department Care Team (Late st Contact Info) Description 07/09/2024 12:30 PM ACCOUNTING CLERKS SUPERVISOR Office Visit [facility] - GI [address] [place] [address], [place] [address] Twin Miller MD [address] [place] [address] [place] [address] 09/19/2024 2:00 PM CDT Office Visit [facility] - Orthopedic Surgery [facility] [place] [address] Larry Alexander MD [address] [place] [address] [address] [place] [address] documented as of this encounter Goals Goal [...] acute cholecystitis. Dictated by Jens Mendoza MD (ceo and president). This report was approved ??by Jens Mendoza [...] acute cholecystitis. Dictated by Jens Mendoza MD (ceo and president). This report was approved by Jens Mendoza [...] documented as of this encounter Care Teams Cable Installation Manager Relationship Specialty Start Date End Date Briana Medeiros MD [address] [place] [address] PCP - General 02/15/18 02/22/22 documented as of this encounter
--- OUTSIDE RECORDS SUMMARY | 2024-05-25 03:01 | XMS_ITS | Encounter Summary ---
Author Organization [facility] Address [address] [place] [address] Care Team Providers Care Category Development Analyst Name Role Phone Briana Mederios MD Primary Care Provider [phone] Encounter Details Date Type Department Care Team (Latest Contact Info) Description 08/05/2020 9:40 AM HUMAN FACTORS ADVISOR LEAD - 08/05/2020 11:59 PM [facility] Hospital Encounter [facility] DIAGNOSTIC RAD [facility] [address]L [address] [facility] [address] Larry Alexander MD [address] [id number] Discharge Disposition: Home or Self Care Social [...] daily Reasons: Musculoskeletal Pain 08/26/2020 nystatin (MYCOSTATIN) 000695 UNIT/GM powder Apply to affected area 2 [...] as needed. 10/12/2023 vitamin D, ergocalciferol, (DRISDOL) 02355 UNITS capsuleIndications:O ther cirrhosis of liver (HCC) Take 50,000 Units by mouth every 7 days 0 02/02/2018 03/21/2023 documented as of this encounter Plan of Treatment Upcoming Encounters Date Type Department Care Team (Late st Contact Info) Description 07/09/2024 12:30 PM HUMAN FACTORS ADVISOR LEAD Office Visit [facility] - GI [address] [place] [address], [place] [address] Twin Miller MD [address] [place] [address] [place] [address] 09/19/2024 2:00 PM CDT Office Visit [facility] - Orthopedic Surgery [address] [facility] [place] [address] Larry Alexander MD [address] [facility] 280 [place] [address] documented as of this encounter Goals Goal [...] OR 2VW Routine 08/05/2020 9: 55 AM HUMAN FACTORS ADVISOR LEAD Arthralgia of hip, unspecified laterality documented in this encounter Results * XR PELVIS 1 OR 2VW (08/05/2020 9:55 AM HUMAN FACTORS ADVISOR LEAD) Anatomical Region Laterality Modality Pelvis Radiographic Shama ging 08/05/2020 10:0 3 AM HUMAN FACTORS ADVISOR LEAD Impressions 08/05/2020 10:07 AM HUMAN FACTORS ADVISOR LEAD IMPRESSION: 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 This report was electronically signed by SILAS NGUYỄN MD ??on 08/05/2020 10:07 AM . Narrative 08/05/2020 10:07 AM HUMAN FACTORS ADVISOR LEAD Exam: 1. XR PELVIS 1 view 2. [...] documented as of this encounter Care Teams Category Development Analyst Relationship Specialty Start Date End Date Briana Medeiros MD [address] [place] [address] PCP - General 02/15/18 02/22/22 documented as of this encounter
--- OUTSIDE RECORDS SUMMARY | 2024-05-25 03:01 | XMS_ITS | Encounter Summary ---
Author Organization [facility] Address [address] [facility] [place] [address] Care Team Providers Care Clearing House Clerk Name Role Phone Briana Medeiros MD Primary Care Provider [phone] Encounter Details Date Type Department Care Team [...] Contact Info) Description 07/09/2024 12:30 PM MANAGER LOSS PREVENTION Office Visit [facility] - GI [address] [facility], [place] [address] Twin Miller MD 1225 [facility] 2L [facility] [place] [address] 09/19/2024 2:00 PM CDT Office Visit [facility] - Orthopedic Surgery [address] [place] [address] Larry Alexander MD 10[address] [facility] 280 [place] [address] documented as of this encounter Goals Goal [...] documented as of this encounter Care Teams Clearing House Clerk Relationship Specialty Start Date End Date Briana Medeiros MD [address] [place] [address] PCP - General 02/15/18 02/22/22 documented as of this encounter
--- OUTSIDE RECORDS SUMMARY | 2024-05-25 03:01 | XMS_ITS | Encounter Summary ---
Author Organization [facility] Address [address] [facility] [place] [address] Care Team Providers Care Boarding House Manager Name Role Phone Briana Medeiros MD Primary Care Provider [phone] Reason for Visit * Reason Comments Follow-up Encounter Details Date Type Department Care Team (Late st Contact Info) Description 08/05/2020 10:00 AM SONG LYRICIST Office Visit [facility] - Orthopedics [facility]5 [facility] [place] [address] Larry Alexander MD [address] 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 nystatin (NYSTOP) 345414 UNIT/GM powder Apply to affected area 2 [...] as needed. ??? vitamin D, ergocalciferol, (DRISDOL) 72582 UNITS capsule Take 50,000 Units by mouth [...] no significant pain. He has a negative [facility] straight leg raise test. Wound is healed [...] treatment plan and all questions were answered LYRICIST documented in this encounter Plan of Treatment Upcoming Encounters Date Type Department Care Team (Late st Contact Info) Description 07/09/2024 12:30 PM SONG LYRICIST Office Visit [facility] - GI [address] [place] [address], [facility] [place] [address] Twin Miller MD [address] [place] [address] [place] [address] 09/19/2024 2:00 PM CDT Office Visit [facility] - [facility]opedic [facility] [place] [address] Larry Alexander MD [address] [place] [address] [place] [address] documented as of this encounter Goals Goal [...] documented as of this encounter Care Teams Boarding House Manager Relationship Specialty Start Date End Date Briana Medeiros MD [address] [place], [place] [phone] PCP - General 02/15/18 02/22/22 documented as of this encounter
--- OUTSIDE RECORDS SUMMARY | 2024-05-25 03:01 | XMS_ITS | Encounter Summary ---
Author Organization [facility] Address [address] [facility] [place] [address] Care Team Providers Care Accessioner Name Role Phone Briana Medeiros MD Primary Care Provider [phone] Reason for Visit * Reason Comments Medication Management Encounter Details Date Type Department Care Team (Late st Contact Info) Description 07/24/2020 Telephone [facility] - [address] [place] [phone] Johnna Carranza, film processing shift supervisor Management Social History Tobacco Use Types Packs/Day [...] 07/24/2020 9:18 AM CST Mehnaz from Dr. Mua Deng office ( PCP )called inquiring if patient is okay to take Cymbalta 30 mg daily for chronic back pain. Please contact their office at [phone] GARAGE MECHANIC documented in this encounter Miscellaneous Notes * Telephone Encounter - Monty Gentile RN - 07/24/2020 9:41 AM CST OFFICE CALLED, OK TO TAKE CYMBALTA GARAGE MECHANIC documented in this encounter Plan of Treatment Upcoming Encounters Date Type Department Care Team (Late st Contact Info) Description 07/09/2024 12:30 PM AUTO GARAGE MECHANIC Office Visit [facility] - GI [address] [place] [address], [place] [address] Twin Miller MD [address] [place] [address] [place] [address] 09/19/2024 2:00 PM CDT Office Visit [facility] - Orthopedic Surgery [address] [place] [address] Larry Alexander MD [address] [address] documented as of this encounter Goals Goal [...] documented as of this encounter Care Teams Accessioner Relationship Specialty Start Date End Date Briana Medeiros MD [address] [place] [address] PCP - General 02/15/18 02/22/22 documented as of this encounter
--- OUTSIDE RECORDS SUMMARY | 2024-05-25 03:01 | XMS_ITS | Encounter Summary ---
Author Organization [facility] Address [address] [facility] [place] [address] Care Team Providers Care Fire Watcher Name Role Phone Briana Medeiros MD Primary Care Provider [phone] Encounter Details Date Type Department Care Team (Late st Contact Info) Description 01/03/2020 12:27 PM CDT - 01/03/2020 11:59 PM CDT Hospital Encounter [facility] DIAGNOSTIC RAD [facility] [address] [facility]. [facility] [place] [address] Ronald Murray MD [facility]5 [facility] [place] [address] Discharge Disposition: Home or Self [...] 10-325 MG tablet 12/31/2019 02/26/2020 nystatin (MYCOSTATIN) 487430 UNIT/GM powder Apply to affected area 2 [...] as needed. 10/12/2023 vitamin D, ergocalciferol, (DRISDOL) 31012 UNITS capsuleIndications:Oth er cirrhosis of liver (HCC) Take 50,000 Units by mouth every 7 days 0 02/02/2018 03/21/2023 documented as of this encounter Plan of Treatment Upcoming Encounters Date Type Department Care Team (Late st Contact Info) Description 07/09/2024 12:30 PM RUBBER COMPOUNDER FORMULATOR Office Visit [facility] - [address] [place] [address] Twin Miller MD [address] [place] [address] 09/19/2024 2:00 PM CDT Office Visit [facility] - Orthopedic Surgery [address] [place] [address] Larry Alexander MD 10[address] [facility] [address] [place] [address] documented as of this encounter Goals Goal [...] documented as of this encounter Care Teams Fire Watcher Relationship Specialty Start Date End Date Briana Medeiros MD [address] [place], [place] [address] PCP - General 02/15/18 02/22/22 documented as of this encounter
--- OUTSIDE RECORDS SUMMARY | 2024-05-25 03:01 | XMS_ITS | Encounter Summary ---
Author Organization [facility] Address [address] [facility] [place] [address] Care Team Providers Care Certified Medical Asst Name Role Phone Briana Medeiros MD Primary Care Provider [phone] Encounter Details Date Type Department Care Team (Late st Contact Info) Description 09/01/2020 Orders Only [facility] - COVID V[facility] [address] [place] [address] Mikael Jaramillo MD [address] [facility] [address] [place] [address] Need for vaccination Social History [...] Contact Info) Description 07/09/2024 12:30 PM COMPUTER FIELD TECHNICIAN Office Visit [facility] - GI 1225 [facility], [place] [address] Twin Miller MD 12[address] [facility] 2L [place] [address] 09/19/2024 2:00 PM CDT Office Visit [facility] - Orthopedic Surgery [address] [place] [address] Larry Alexander MD 1031 [facility] 280 [place] [address] documented as of this encounter Goals Goal [...] documented as of this encounter Care Teams Certified Medical Asst Relationship Specialty Start Date End Date Briana Medeiros MD [address] [place], [place] [phone] PCP - General 02/15/18 02/22/22 documented as of this encounter
--- OUTSIDE RECORDS SUMMARY | 2024-05-25 03:01 | XMS_ITS | Encounter Summary ---
Author Organization [facility] Address [address] [place] [address] Care Team Providers Care Galvanometer Assembler Name Role Phone Briana Medeiros MD Primary Care Provider [phone] Reason for Referral * Radiology Services (Routine) - Closed Specialty Diagnoses / Procedures Referred By Contac t Referred To Contact Ultrasound Diagnoses Liver cirrhosis secondary to RAYGOZA (HCC) Metabolic syndrome Procedures US ABDOMEN LIMITED Jackelyn Licona MD [address] [place] [address] [address] Referral ID Status Reason Start Date Expiration Date Visits Re quested Visits Authorized [id number] Closed 02/26/2020 02/25/2021 1 1 Reason for Visit * Radiology Services (Routine) - Closed Specialty Diagnoses / Procedures Referred By Contac t Referred To Contact Ultrasound Diagnoses Liver cirrhosis secondary to RAYGOZA (HCC) Metabolic syndrome Procedures US ABDOMEN LIMITED Jackelyn Licona MD [address] [place] [address] [address] Referral ID Status Reason Start Date Expiration Date Visits Re quested Visits Authorized [id number] Closed 02/26/2020 02/25/2021 1 1 Encounter Details Date Type Department Care Team (Late st Contact Info) Description 03/19/2020 9:41 AM CDT - 03/19/2020 11:59 PM CDT Hospital Encounter [facility] [address] [place] [address] Jackelyn Licona MD [address] [place] [address] Discharge Disposition: Home or Self Care Social [...] ORAL ROUTE DAILY 11/28/2019 10/21/2020 nystatin (MYCOSTATIN) 997803 UNIT/GM powder Apply to affected area 2 [...] as needed. 10/12/2023 vitamin D, ergocalciferol, (DRISDOL) 53565 UNITS capsuleIndications:Othe r cirrhosis of liver (HCC) Take 50,000 Units by mouth every 7 days 0 02/02/2018 03/21/2023 documented as of this encounter Plan of Treatment Upcoming Encounters Date Type Department Care Team (Late st Contact Info) Description 07/09/2024 12:30 PM JOINT FILLER Office Visit [facility] - GI [address] [place] [address], [place] [address] Twin Miller MD [address] [place] [address] [place] [address] 09/19/2024 2:00 PM CDT Office Visit [facility] - Orthopedic Surgery [address] [facility] [address] Larry Alexander MD [address] [facility] 280 [place] [address] documented as of this encounter Goals Goal [...] lesion. Report dictated by Vanessa Wu MD (interventional radiology tech). I, Dr. EPI HORVATH have personally reviewed [...] lesion. Report dictated by Vanessa Wu MD (interventional radiology tech). I, Dr. EPI HORVATH have personally reviewed [...] documented as of this encounter Care Teams Galvanometer Assembler Relationship Specialty Start Date End Date Briana Medeiros MD [address] [place], [place] [address] PCP - General 02/15/18 02/22/22 documented as of this encounter
--- OUTSIDE RECORDS SUMMARY | 2024-05-25 03:01 | XMS_ITS | Encounter Summary ---
Author Organization [facility] Address [address] [facility] [place] [address] Care Team Providers Care Ambulatory Service Representative Name Role Phone Briana Medeiros MD Primary Care Provider [phone] Encounter Details Date Type Department Care Team (Late st Contact Info) Description 02/07/2020 1:06 PM CDT Hospital Encounter [facility] DIAGNOSTIC RAD [facility] 1L [address] [facility] [place] [address] Ronald Murray MD [facility]5 [facility] [place] [address] Discharge Disposition: Home or Self [...] 10-325 MG tablet 12/31/2019 02/26/2020 nystatin (MYCOSTATIN) 479239 UNIT/GM powder Apply to affected area 2 [...] as needed. 10/12/2023 vitamin D, ergocalciferol, (DRISDOL) 48208 UNITS capsuleIndications:Oth er cirrhosis of liver (HCC) Take 50,000 Units by mouth every 7 days 0 02/02/2018 03/21/2023 documented as of this encounter Plan of Treatment Upcoming Encounters Date Type Department Care Team (Late st Contact Info) Description 07/09/2024 12:30 PM POLE CUTTER Office Visit [facility] Group - [address] [place] [address] ElbeTwin craven MD [address] [place] [address] 09/19/2024 2:00 PM CDT Office Visit [facility] - Orthopedic Surgery [address] [place] [address] Larry Alexander MD 10[address] [facility] 280 [place] [address] documented as of this encounter Goals Goal [...] documented as of this encounter Care Teams Ambulatory Service Representative Relationship Specialty Start Date End Date Briana Medeiros MD [address] [place], [place] [address] PCP - General 02/15/18 02/22/22 documented as of this encounter
--- OUTSIDE RECORDS SUMMARY | 2024-05-25 03:01 | XMS_ITS | Encounter Summary ---
Author Organization [facility] Address [address] [facility] [place] [address] Care Team Providers Care Fur Blowing Machine Operator Name Role Phone Briana Medeiros MD Primary Care Provider [phone] Encounter Details Date Type Department Care Team [...] st Contact Info) Description 07/09/2024 12:30 PM JAVA TECHNICAL ARCHITECT Office Visit [facility] - GI [address] [facility], [place] [address] Twin Miller MD [address] [facility] 2L [facility] [place] [address] 09/19/2024 2:00 PM CDT Office Visit [facility] Physician [facility] - Orthopedic Surgery [address] [facility] [place] [address] Larry Alexander MD 10[address] [facility] 280 [place] [address] documented as of this encounter Goals Goal [...] documented as of this encounter Care Teams Fur Blowing Machine Operator Relationship Specialty Start Date End Date Briana Medeiros MD [address] [place] [address] PCP - General 02/15/18 02/22/22 documented as of this encounter
--- OUTSIDE RECORDS SUMMARY | 2024-05-25 03:01 | XMS_ITS | Encounter Summary ---
Author Organization [facility] Address [address] [place] [address] Care Team Providers Care Tube Laser Operator Name Role Phone Briana Medeiros MD Primary Care Provider [phone] Reason for Visit * Reason Comments Infectious Disease Wound Care Encounter Details Date Type Department Care Team (Latest Contact Info) Description 10/21/2020 9:53 AM CDT - 10/21/2020 11:59 PM CDT Hospital Encounter Wound Care at [facility] [address] [place] [address] Raysa Nevarez MD [address] [phone] Discharge Disposition: Home or Self Care Social [...] by mouth 2 times daily nystatin (MYCOSTATIN) 610614 UNIT/GM powder Apply to affected area 2 [...] as needed. 10/12/2023 vitamin D, ergocalciferol, (DRISDOL) 72826 UNITS capsuleIndications:Othe r cirrhosis of liver (HCC) [...] results for input(s): CK in the last 08330 hours. Recent Labs Component Name 04/24/19 1141 SEDRATE 70* Recent Labs Component Name 04/24/19 1140 08/15/17 0348 08/09/17 0745 CRP 1.41* 4.1* 32.0* No results for input(s): CDIFFTOXINAB in the last 80414 hours. Recent Labs Component Name 02/04/19 0617 [...] st Contact Info) Description 07/09/2024 12:30 PM RUBBISH COLLECTION SUPERVISOR Office Visit [facility] - GI [address] [place] [address], [place] [address] Twin Miller MD [address] [place] [address] [place] [address] 09/19/2024 2:00 PM CDT Office Visit [facility] - Orthopedic Surgery [facility]1 [place] [address] Larry Alexander MD 10[address] [facility] 280 [place] [address] documented as of this encounter Goals Goal [...] documented as of this encounter Care Teams Tube Laser Operator Relationship Specialty Start Date End Date Briana Medeiros MD [address] [place] [address] PCP - General 02/15/18 02/22/22 documented as of this encounter
--- OUTSIDE RECORDS SUMMARY | 2024-05-25 03:01 | XMS_ITS | Encounter Summary ---
Author Organization [facility] Address [address] [facility] [place] [address] Care Team Providers Care Worm Raiser Name Role Phone Briana Medeiros MD Primary Care Provider [phone] Encounter Details Date Type Department Care Team (Late st Contact Info) Description 02/13/2020 Orders Only [facility] - GI 1225 [place] [address] Monty Gentile, RN Liver cirrhosis secondary to [...] Contact Info) Description 07/09/2024 12:30 PM ASSEMBLY REPAIRER Office Visit [facility] - GI [address] [facility], [place] [address] Twin Miller MD [facility] [place] [address] 09/19/2024 2:00 PM CDT Office Visit [facility] Physician Group - Orthopedic Surgery [address] [place] [address] Larry Alexander MD [address] [facility] 280 [place] [address] documented as of this encounter Goals Goal [...] more information on this test, go to: http://education.Casualing/faq/[email or web address] Test Performed at: [facility] [address] [place], [place] ??[phone] ROSS LOPEZ DO,MPH Blood BLOOD SPECIMEN / Unknown 02/20/2020 1:23 PM CDT 02/20/2020 1:24 PM CDT Jackelyn Licona MD LAB - COAGULATION OR DERABLES Performing Organization Address City/State/[facility] Co de Phone Number [facility] [address] [place] [address] * (ABNORMAL) COMPREHENSIVE METABOLIC PANEL (02/20/2020 1:23 PM CDT) Glucose 86 65 - 99 mg/dL [facility] Comment: ? Fasting reference interval BUN 27(H) 7 - 25 mg/dL [facility] Creatinine 1.36(H) 0.70 - 1.18 mg/dL [facility] Comment: For patients >49 years of age, the reference limit for Creatinine is approximately 13% higher for people identified as -Latvian. eGFR by MDRD 52(L) > OR = [...] 46 U/L [facility] Comment: Test Performed at: [facility] [address] [place], [place] ??[address] ROSS LOPEZ DO,MPH Blood BLOOD SPECIMEN / Unknown 02/20/2020 1:23 PM CDT 02/20/2020 1:24 PM CDT Jackelyn Licona MD LAB - CHEMISTRY ORDE RAISA [facility] [address] [place] [address] * (ABNORMAL) CBC WITH DIFFERENTIAL (02/20/2020 1:23 [...] 0.7 % [facility] Comment: Test Performed at: [facility] [address] [place], [place] ??[address] ROSS LOPEZ DO,MPH Blood BLOOD SPECIMEN / Unknown 02/20/2020 1:23 PM CDT 02/20/2020 1:24 PM CDT Jackelyn Licona MD LAB - HEMATOLOGY ORD ERABLES Performing Organization Address [facility] Co de Phone Number [facility] [phone] [place] [address] * ALPHA FETOPROTEIN BLOOD TUMOR MARKER (02/20/2020 1:23 PM CDT) Alpha-Fetoprotei n Tumor Marker 1.2 <6.1 ng/mL [facility] Comment: This test was performed using the Flex Mcandrews chemiluminescent method. Values obtained from different assay methods cannot be used interchangeably. AFP levels, regardless of value, should not be interpreted as absolute evidence of the presence or absence of disease. 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
--- OUTSIDE RECORDS SUMMARY | 2024-05-25 03:02 | XMS_ITS | Encounter Summary ---
Author Organization [facility] Address [address] [place] [address] Care Team Providers Care Cloth Weaver Name Role Phone Briana Medeiros MD Primary Care Provider [phone] Reason for Referral * Radiology Services (Routine) - Closed Specialty Diagnoses / Procedures Referred By Contac t Referred To Contact Ultrasound Diagnoses Liver cirrhosis secondary to RAYGOZA (HCC) Metabolic syndrome Procedures US ABDOMEN LIMITED Jackelyn Licona MD [address] [place] [address] [address] Referral ID Status Reason Start Date Expiration Date Visits Re quested Visits Authorized [id number] Closed 05/07/2019 11/03/2019 1 1 LE IAM CONSULTANT Reason for Visit * Radiology Services (Routine) - Closed Specialty Diagnoses / Procedures Referred By Contac t Referred To Contact Ultrasound Diagnoses 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) Metabolic syndrome Procedures US ABDOMEN LIMITED Jackelyn Licona MD [address] [place] [address] [address] [place] [address] Referral ID Status Reason Start Date Expiration Date Visits Re quested Visits Authorized [id number] Closed 05/07/2019 11/03/2019 1 1 Encounter Details Date Type Department Care Team (Late st Contact Info) Description 05/16/2019 8:38 AM ORACLE IAM CONSULTANT - 05/16/2019 11:59 PM ORACLE IAM CONSULTANT Hospital Encounter [facility] [address] [place] [address] Jackelyn Licona MD [address] [place] [address] Discharge Disposition: Home or Self Care Social [...] daily 57 capsule 05/06/2019 08/28/2019 nystatin (MYCOSTATIN) 421656 UNIT/GM powder Apply to affected area 2 [...] as needed. 10/12/2023 vitamin D, ergocalciferol, (DRISDOL) 85319 UNITS capsuleIndications:Ot her cirrhosis of liver (HCC) Take 50,000 Units by mouth every 7 days 0 02/02/2018 03/21/2023 documented as of this encounter Plan of Treatment Upcoming Encounters Date Type Department Care Team (Late st Contact Info) Description 07/09/2024 12:30 PM ORACLE IAM CONSULTANT Office Visit [facility]ician Group - GI [address] [place] [address], [place] [address] Twin Miller MD [address] [place] [address] [place] [address] 09/19/2024 2:00 PM CDT Office Visit [facility] Group - Orthopedic Surgery [facility] [place] [address] Vandana Alexander MD [address] [place] [address] documented as of this encounter Goals Goal [...] ABDOMEN LIMITED Routine 05/16/2019 9: 16 AM ORACLE IAM CONSULTANT Liver cirrhosis secondary to RAYGOZA (HCC) Metabolic syndrome documented in this encounter Results * US ABDOMEN LIMITED (05/16/2019 9:16 AM ORACLE IAM CONSULTANT) Anatomical Region Laterality Modality Abdomen Ultrasound 05/16/2019 9:05 AM ORACLE IAM CONSULTANT Impressions 05/16/2019 9:10 AM ORACLE IAM CONSULTANT IMPRESSION: 1. Hepatic cirrhosis. No discrete hepatic lesion or biliary dilatation. 2. Cholelithiasis without evidence of acute cholecystitis. Dictated by Jay Bowens MD (senior vice president) I, Dr. VANDANA HENSLEY M.D. have personally reviewed and interpreted this examination/study. This report was electronically signed by VANDANA HENSLEY M.D. ??on 05/16/2019 9:10 AM . Narrative 05/16/2019 9:10 AM ORACLE IAM CONSULTANT EXAMINATION: Limited abdominal sonogram HISTORY: 68-year-old male [...] acute cholecystitis. Dictated by Jay Bowens MD (senior vice president) I, Dr. VANDANA HENSLEY M.D. have personally [...] documented as of this encounter Care Teams Cloth Weaver Relationship Specialty Start Date End Date Briana Medeiros MD [address] [place] [address] PCP - General 02/15/18 02/22/22 documented as of this encounter
--- OUTSIDE RECORDS SUMMARY | 2024-05-25 03:02 | XMS_ITS | Encounter Summary ---
Author Organization [facility] Address [address] [facility] [place] [address] Care Team Providers Care Outside Residential Sales Professional Name Role Phone Briana Medeiros MD Primary Care Provider [phone] Reason for Visit * Reason Comments LABS ONLY Encounter Details Date Type Department Care Team (Late st Contact Info) Description 08/24/2019 Telephone [facility] - [address] [phone] Monty Gentile, RN LABS ONLY Social History [...] Jackelyn Licona MD ----- Message ----- From: [facility], Results In Sent: 08/21/2019 1:20 PM CDT To: Monty Gentile RN documented in this encounter Plan of Treatment Upcoming Encounters Date Type Department Care Team (Late st Contact Info) Description 07/09/2024 12:30 PM HOSPITAL PHARMACY TECHNICIAN Office Visit [facility]5 [facility], [place] [address] Twin Miller MD [address] [place] [address] [place] [address] 09/19/2024 2:00 PM CDT [facility] Visit [facility] - Orthopedic Surgery [address] [place] [address] Larry Alexander MD [facility] [address] [address] documented as of this encounter Goals Goal [...] documented as of this encounter Care Teams Outside Residential Sales Professional Relationship Specialty Start Date End Date Briana Medeiros MD [address] [place] [address] PCP - General 02/15/18 02/22/22 documented as of this encounter
--- OUTSIDE RECORDS SUMMARY | 2024-05-25 03:02 | XMS_ITS | Encounter Summary ---
Author Organization [facility] Address [address] [facility] [place] [address] Care Team Providers Care Carburetor Rebuilder Name Role Phone Briana Medeiros MD Primary Care Provider [phone] Reason for Visit * Reason Comments Follow-up Encounter Details Date Type Department Care Team (Late st Contact Info) Description 07/03/2019 8:30 AM DIRECTOR [employer]CHOOL Office Visit [facility]ician Group - Orthopedics [address] [place] [address] [place] [address] Larry Alexander MD 10[address] [facility] 280 [place], [place] [phone] 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 nystatin (NYSTOP) 539672 UNIT/GM powder Apply to affected area 2 [...] as needed. ??? vitamin D, ergocalciferol, (DRISDOL) 10124 UNITS capsule Take 50,000 Units by mouth [...] [facility] VAT R basilic ??? Seizures ??? [...] pain. We discussed coming to the [facility] Emergency Department if he has these issues. Patient and his understood the treatment plan and all questions were answered. [employer] documented in this encounter Plan of Treatment Upcoming Encounters Date Type Department Care Team (Late st Contact Info) Description 07/09/2024 12:30 PM [employer] Office Visit [facility] - GI [address] [place] [address], [place] [address] Twin Miller MD [address] [place] [address] [place] [address] 09/19/2024 2:00 PM CDT Office Visit [facility] Group - Orthopedic Surgery [address] [facility] [place] [address] Larry Alexander MD [address] [facility] 280 [place] [address] documented as of this encounter Goals Goal [...] documented as of this encounter Care Teams Carburetor Rebuilder Relationship Specialty Start Date End Date Briana Medeiros MD [address] [place] [address] PCP - General 02/15/18 02/22/22 documented as of this encounter
--- OUTSIDE RECORDS SUMMARY | 2024-05-25 03:02 | XMS_ITS | Encounter Summary ---
Author Organization [facility] Address [address] [facility] [place] [address] Care Team Providers Care Schedule Clerk Name Role Phone Briana Medeiros MD Primary Care Provider [phone] Encounter Details Date Type Department Care Team (Late st Contact Info) Description 01/02/2020 Orders Only [facility] - Orthopedics [address] [place] [address], [place] [address] Ronald Murray MD [address] [place] [address] [place] [address] Back pain, unspecified back location, [...] st Contact Info) Description 07/09/2024 12:30 PM RECYCLING ATTENDANT Office Visit [facility] - GI [address] [facility], [place] [address] Twin Miller MD [facility]5 [facility] 2L [place] [address] 09/19/2024 2:00 PM CDT Office Visit [facility]ician Group - Orthopedic Surgery [address] [place] [address] Larry Alexander MD 1031 [facility] 280 [place] [address] documented as of this encounter Goals Goal [...] documented as of this encounter Care Teams Schedule Clerk Relationship Specialty Start Date End Date Briana Medeiros MD [address] [place] [address] PCP - General 02/15/18 02/22/22 documented as of this encounter
--- OUTSIDE RECORDS SUMMARY | 2024-05-25 03:02 | XMS_ITS | Encounter Summary ---
Author Organization [facility] Address [address] [facility] [place] [address] Care Team Providers Care Patient Registration Clerk Name Role Phone Briana Medeiros MD Primary Care Provider [phone] Encounter Details Date Type Department Care Team (Late st Contact Info) Description 05/18/2019 Orders Only [facility] [address] [facility], [facility] [place] [phone] Larry Alexander MD 1031 [facility] 280 [place] [address] Surgical follow-up care Social History Tobacco Use [...] st Contact Info) Description 07/09/2024 12:30 PM JET MECHANIC Office Visit [facility] - GI [address] [facility], [place] [address] Twin Miller MD 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 2.Left total hip arthroplasty. Dictated by Donnie Carter MD (resident physician in radiology). I, Dr. SILAS NGUYỄN MD have personally reviewed and interpreted this examination/study. This report was electronically signed by SILAS NGUYỄN MD ??on 05/22/2019 9:49 AM . Narrative 05/22/2019 9:49 AM JET MECHANIC EXAMINATION: XR PELVIS 1 view XR HIP [...] hip arthroplasty. Dictated by Donnie Carter MD (resident physician in radiology). I, Dr. SILAS NGUYỄN MD have personally reviewed and interpreted this examination/study. This report was electronically signed by SILAS NGUYỄN MD on 05/22/2019 9:49 AM . 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 2.Left total hip arthroplasty. Dictated by Donnie Carter MD (resident physician in radiology). I, Dr. SILAS NGUYỄN MD have personally reviewed and interpreted this examination/study. This report was electronically signed by SILAS NGUYỄN MD ??on 05/22/2019 9:49 AM . Narrative 05/22/2019 9:49 AM JET MECHANIC EXAMINATION: XR PELVIS 1 view XR HIP [...] hip arthroplasty. Dictated by Donnie Carter MD (resident physician in radiology). I, Dr. SILAS NGUYỄN MD have personally [...] as of this encounter Care Teams Patient Registration Clerk Relationship Specialty Start Date End Date Briana Medeiros MD [address] [place], [place] [id number] PCP - General 02/15/18 02/22/22 documented as of this encounter
--- OUTSIDE RECORDS SUMMARY | 2024-05-25 03:02 | XMS_ITS | Encounter Summary ---
Author Organization [facility] Address [address] [facility] [place] [address] Care Team Providers Care Information Security Name Role Phone Briana Medeiros MD Primary Care Provider [phone] Reason for Visit * Reason Comments Infectious Disease Follow-up Encounter Details Date Type Department Care Team (Latest Contact Info) Description 10/23/2019 9:52 AM CDT - 10/23/2019 11:59 PM CDT Hospital Encounter W[facility] at [facility] [address] [place] [id number] Raysa Nevarez MD [address] [facility] [address] [place], [place] [phone] Discharge Disposition: Home or Self Care Social [...] mouth 2 times daily 10/12/2023 nystatin (MYCOSTATIN) 842523 UNIT/GM powder Apply to affected area 2 [...] as needed. 10/12/2023 vitamin D, ergocalciferol, (DRISDOL) 83564 UNITS capsuleIndications:Oth er cirrhosis of liver (HCC) Take 50,000 Units by mouth every 7 days 0 02/02/2018 03/21/2023 documented as of this encounter Progress Notes * Raysa Nevarez MD - 10/23/2019 10:00 AM CDT Infectious Disease Progress Note Admit Date: 10/23/2019 9:52 AM Consult date: 10/23/2019 68 year oldmale Clinical Course [facility] Had some drainage from the right hip [...] results for input(s): CK in the last 41461 hours. Recent Labs Component Name 04/24/19 1141 SEDRATE 70* Recent Labs Component Name 04/24/19 1140 08/15/17 0348 08/09/17 0745 CRP 1.41* 4.1* 32.0* No results for input(s): CDIFFTOXINAB in the last 24472 hours. Recent Labs Component Name 02/04/19 0617 [...] st Contact Info) Description 07/09/2024 12:30 PM TEA ROOM MANAGER Office Visit [facility] - GI [address] [place] [address], [place] [address] Twin Miller MD [address] [place] [address] [place] [address] 09/19/2024 2:00 PM CDT Office Visit [facility] - Orthopedic Surgery [facility] [place] [phone] Larry Alexander MD 1031 [facility] 280 [place] [address] documented as of this encounter Goals Goal [...] documented as of this encounter Care Teams Information Security Relationship Specialty Start Date End Date Briana Medeiros MD [address] [place], [place] [phone] PCP - General 02/15/18 02/22/22 documented as of this encounter
--- OUTSIDE RECORDS SUMMARY | 2024-05-25 03:02 | XMS_ITS | Encounter Summary ---
Author Organization [facility] Address [address] [facility] [place] [address] Care Team Providers Care Pumping Supervisor Name Role Phone Briana Medeiros MD Primary Care Provider [phone] Reason for Visit * Reason Comments Surgical Follow-up right ARNALDO Encounter Details Date Type Department Care Team (Late st Contact Info) Description 05/22/2019 10:00 AM LOG WASHER Office Visit [facility] - Orthopedics 12[address] [facility], [facility] [place] [address] Larry Alexander MD [address] [phone] 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 WASHER documented in this encounter Plan of Treatment Upcoming Encounters Date Type Department Care Team (Late st Contact Info) Description 07/09/2024 12:30 PM LOG WASHER Office Visit [facility] - GI [address] [place] [address], [place] [address] Twin Miller MD [address] [place] [address] [place] [address] 09/19/2024 2:00 PM CDT Office Visit [facility] - [facility]1 [place] [phone] Larry Alexander MD 1031 [facility] 280 [place] [address] documented as of this encounter Goals Goal [...] documented as of this encounter Care Teams Pumping Supervisor Relationship Specialty Start Date End Date Briana Medeiros MD [address] [place] [address] PCP - General 02/15/18 02/22/22 documented as of this encounter
--- OUTSIDE RECORDS SUMMARY | 2024-05-25 03:02 | XMS_ITS | Encounter Summary ---
Author Organization [facility] Address [address] [facility] [place] [address] Care Team Providers Care Cylinder Sander Operator Name Role Phone Briana Medeiros MD Primary Care Provider [phone] Encounter Details Date Type Department Care Team (Latest Contact Info) Description 05/22/2019 9:21 AM RV PARTS AND SERVICE DIRECTOR - 05/22/2019 11:59 PM [facility] Hospital Encounter [facility] DIAGNOSTIC RAD [facility] [address] [facility] [address] Larry Alexander MD 1031 [facility] 280 [place], [place] [phone] Discharge Disposition: Home or Self Care Social [...] daily 57 capsule 05/06/2019 08/28/2019 nystatin (MYCOSTATIN) 901840 UNIT/GM powder Apply to affected area 2 [...] as needed. 10/12/2023 vitamin D, ergocalciferol, (DRISDOL) 21921 UNITS capsuleIndications:Ot her cirrhosis of liver (HCC) Take 50,000 Units by mouth every 7 days 0 02/02/2018 03/21/2023 documented as of this encounter Plan of Treatment Upcoming Encounters Date Type Department Care Team (Late st Contact Info) Description 07/09/2024 12:30 PM RV PARTS AND SERVICE DIRECTOR Office Visit [facility] [place] [address] [place] [address], [place] [phone] Twin Miller MD [address] [place] [address] [place] [address] 09/19/2024 2:00 PM CDT Office Visit [facility] - Orthopedic Surgery [address] [place] [address] Larry Alexander MD [address] [place] [address] documented as of this encounter Goals Goal [...] 2VW OR MORE Routine 05/22/2019 9:31 AM RV PARTS AND SERVICE DIRECTOR Surgical follow-up care documented in this encounter Results * XR HIP RIGHT 2VW OR MORE (05/22/2019 9:31 AM RV PARTS AND SERVICE DIRECTOR) Anatomical Region Laterality Modality Pelvis, Lower Extremity [facility] 05/22/2019 9:37 AM RV PARTS AND SERVICE DIRECTOR Impressions 05/22/2019 9:49 AM RV PARTS AND SERVICE DIRECTOR IMPRESSION: 1.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 Adjacent heterotopic ossification. 2.Left total hip arthroplasty. Dictated by Donnie Carter MD (radiology clerk). I, Dr. SILAS NGUYỄN MD have personally reviewed and interpreted this examination/study. This report was electronically signed by SILAS NGUYỄN MD ??on 05/22/2019 9:49 AM . Narrative 05/22/2019 9:49 AM RV PARTS AND SERVICE DIRECTOR EXAMINATION: XR PELVIS 1 view XR HIP [...] arthroplasty. Dictated by Donnie Carter MD (radiology clerk). I, Dr. SILAS NGUYỄN MD have personally [...] documented as of this encounter Care Teams Cylinder Sander Operator Relationship Specialty Start Date End Date Briana Medeiros MD [address] [place] [address] PCP - General 02/15/18 02/22/22 documented as of this encounter
--- OUTSIDE RECORDS SUMMARY | 2024-05-25 03:02 | XMS_ITS | Encounter Summary ---
Author Organization [facility] Address [address] [facility] [place] [address] Care Team Providers Care Seamer Panty Hose Name Role Phone Briana Medeiros MD Primary Care Provider [phone] Encounter Details Date Type Department Care Team (Late st Contact Info) Description 08/24/2019 Orders Only [facility] - [facility] 1225 [place] [phone] Monty Gentile, RN Liver cirrhosis secondary to [...] Contact Info) Description 07/09/2024 12:30 PM DATA CENTER MANAGER Office Visit [facility] - GI 1225 [facility], [place] [address] Twin Miller MD [facility] OF [place] [address] 09/19/2024 2:00 PM CDT Office Visit [facility] Group - Orthopedic Surgery [address] [facility] [place] [address] Larry Alexander MD 1031 [facility] 280 [place] [address] documented as of this encounter Goals Goal [...] approximately 13% higher for people identified as -Ghanaian. 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
--- OUTSIDE RECORDS SUMMARY | 2024-05-25 03:02 | XMS_ITS | Encounter Summary ---
Author Organization [facility] Address [address] [facility] [place] [address] Care Team Providers Care Gravure Printing Machinist Name Role Phone Briana Medeiros MD Primary Care Provider [phone] Encounter Details Date Type Department Care Team (Late st Contact Info) Description 08/17/2019 Orders Only [facility] - GI 1225 [place] [phone] Monty Gentile, RN Liver cirrhosis secondary to [...] st Contact Info) Description 07/09/2024 12:30 PM VIDEOGAME DESIGNER Office Visit [facility] - GI [address] [facility], [place] [address] Twin Miller MD [facility] [place] [address] 09/19/2024 2:00 PM CDT Office Visit [facility] - Orthopedic Surgery [address] [facility] [place] [address] Larry Alexander MD 1031 [facility] 280 [place] [address] documented as of this encounter Goals Goal [...] perform a manual review. Test Performed at: [employer] [place], [place] ??[address] ROSS LOPEZ DO,MPH 08/20/2019 3:27 PM CDT 08/20/2019 3:28 PM CDT Jackelyn Licona MD LAB - HEMATOLOGY ORD ERABLES Performing Organization Address City/State/[facility] Co de Phone Number [facility] [address] [place] [address] * PT-INR (08/20/2019 3:27 PM CDT) Pathologist [facility] INR 1.0 [facility] Comment: Reference Range ? 0.9-1.1 Moderate-intensity Warfarin Therapy 2.0-3.0 Higher-intensity Warfarin Therapy ?? 3.0-4.0 PT 9.8 9.0 - 11.5 sec [facility] Comment: For more information on this test, go to: http://education.[employer]/faq/LAS269 Test Performed at: [facility] [place], [place] ??[phone] ROSS LOPEZ DO,MPH Blood BLOOD SPECIMEN / Unknown 08/20/2019 3:27 PM CDT 08/20/2019 3:28 PM CDT Jackelyn Licona MD LAB - COAGULATION OR DERABLES Performing Organization Address [facility] Co de Phone Number [facility] [address] [place] [address] * ALPHA FETOPROTEIN BLOOD TUMOR MARKER (08/20/2019 3:27 PM CDT) [facility] Alpha-Fetoprotei n Tumor Marker 1.5 <6.1 ng/mL [facility] Comment: This test was performed using the Flex [place] chemiluminescent method. Values obtained from different assay methods cannot be used interchangeably. AFP levels, regardless of value, should not be interpreted as absolute evidence of the presence or absence of disease. Test Performed at: [facility] [address] [place] ??[address] ROSS LOPEZ DO,MPH Blood BLOOD SPECIMEN / Unknown 08/20/2019 3:27 PM CDT 08/20/2019 3:28 PM CDT Jackelyn Licona MD LAB - CHEMISTRY ORDE RABLES Performing Organization Address [facility] de Phone Number [facility] [address] [place] [address] * (ABNORMAL) COMPREHENSIVE METABOLIC PANEL (08/20/2019 3:27 PM CDT) [facility] Glucose 83 65 - 99 mg/dL [facility] Comment: ? Fasting reference interval BUN 39(H) 7 - 25 mg/dL [facility] Creatinine 1.51(H) 0.70 - 1.18 mg/dL [facility] Comment: For patients >49 years of age, the reference limit for Creatinine is approximately 13% higher for people identified as -Congolese. eGFR by MDRD 46(L) > OR = [...] 46 U/L [facility] Comment: Test Performed at: [facility] [place] ??[address] ROSS LOPEZ DO,MPH Blood BLOOD SPECIMEN / Unknown 08/20/2019 3:27 PM CDT 08/20/2019 3:28 PM CDT Jackelyn Licona MD LAB - CHEMISTRY ORDE [facility] [address] [place] [address] * (ABNORMAL) CBC WITH DIFFERENTIAL (08/20/2019 3:27 [...] 12.5 fL [facility] Comment: Test Performed at: [facility] [place] ??[address] ROSS LOPEZ DO,MPH Blood BLOOD SPECIMEN / Unknown 08/20/2019 3:27 PM CDT 08/20/2019 3:28 PM CDT Jackelyn Licona MD LAB - HEMATOLOGY ORD ERABLES [facility] [address] [place] [address] documented in this encounter Visit Diagnoses Diagnosis 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
--- OUTSIDE RECORDS SUMMARY | 2024-05-25 03:02 | XMS_ITS | Encounter Summary ---
Author Organization [facility] Address [address] [facility] [place] [address] Care Team Providers Care Senior Controls Analyst Name Role Phone Briana Medeiros MD Primary Care Provider [phone] Encounter Details Date Type Department Care Team (Late st Contact Info) Description 06/15/2019 Orders Only [facility] [address] [facility], [facility] [place] [address] Larry Alexander MD 1031 [facility] 280 [place] [address] Surgical follow-up care Social History Tobacco Use [...] Info) Description 07/09/2024 12:30 PM DATA ENTRY PROCESSOR Office Visit [facility] - GI [address] [facility], [place] [address] Twin Miller MD [facility]5 [facility] 2L DIV [place] [address] 09/19/2024 2:00 PM CDT Office Visit [facility] - Orthopedic Surgery [address] [facility] [place] [address] Larry Alexander MD 10[address] [facility] 280 [place] [address] documented as of this encounter Goals Goal [...] PELVIS 1 OR 2VW (06/19/2019 12:10 PM DATA ENTRY PROCESSOR) Anatomical Region Laterality Modality Pelvis Radiographic Shama ging 06/19/2019 1:16 PM DATA ENTRY PROCESSOR Impressions 06/19/2019 1:20 PM DATA ENTRY PROCESSOR IMPRESSION: 1.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 Adjacent heterotopic ossification, mildly increased. 2.Left total hip arthroplasty. This report was dictated by John Greene M.D. (vice president of human resources). I, Dr. BANDAR DEE have personally reviewed and interpreted this examination/study. This report was electronically signed by BANDAR DEE ??on 06/19/2019 1:20 PM . Narrative 06/19/2019 1:20 PM DATA ENTRY PROCESSOR EXAMINATION: XR HIP RIGHT 2VW OR MORE, [...] report was dictated by John Greene M.D. (vice president of human resources). I, Dr. BANDAR DEE have personally reviewed and interpreted this examination/study. This report was electronically signed by BANDAR DEE on 06/19/2019 1:20 PM . Larry Alexander MD DIAGNOSTIC IMAGING ORDERABLES * XR HIP RIGHT 2VW OR MORE (06/19/2019 12:09 PM DATA ENTRY PROCESSOR) Anatomical Region Laterality Modality Pelvis, Lower Extremity Radiogra [facility] Imaging 06/19/2019 1:16 PM DATA ENTRY PROCESSOR Impressions 06/19/2019 1:20 PM DATA ENTRY PROCESSOR IMPRESSION: 1.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 Adjacent heterotopic ossification, mildly increased. 2.Left total hip arthroplasty. This report was dictated by John Greene M.D. (vice president of human resources). I, Dr. BANDAR DEE have personally reviewed and interpreted this examination/study. This report was electronically signed by BANDAR DEE ??on 06/19/2019 1:20 PM . Narrative 06/19/2019 1:20 PM DATA ENTRY PROCESSOR EXAMINATION: XR HIP RIGHT 2VW OR MORE, [...] report was dictated by John Greene M.D. (vice president of human resources). I, Dr. BANDAR DEE have personally reviewed [...] as of this encounter Care Teams Senior Controls Analyst Relationship Specialty Start Date End Date Briana Medeiros MD [address] [place], [place] [phone] PCP - General 02/15/18 02/22/22 documented as of this encounter
--- OUTSIDE RECORDS SUMMARY | 2024-05-25 03:02 | XMS_ITS | Encounter Summary ---
Author Organization [facility] Address [address] [place] [address] Care Team Providers Care Logistics Operations Director Name Role Phone Briana Medeiros MD Primary Care Provider [phone] Reason for Visit * Reason Comments Follow-up Encounter Details Date Type Department Care Team (Late st Contact Info) Description 07/31/2019 8:30 AM AIR CONDITIONING INSTALLER SUPERVISOR Office Visit [facility] - Orthopedics [address] [place] [phone] Larry Alexander MD 1031 [facility] 280 [place], [place] [phone] Arthralgia of hip, unspecified laterality (Primary Dx) [...] Reji Darby MD - 07/31/2019 8:50 AM AIR CONDITIONING INSTALLER SUPERVISOR Continue local wound care Follow up in 1 year or as needed CONDITIONING INSTALLER SUPERVISOR documented in this encounter Progress Notes * [...] by mouth once daily ??? nystatin (NYSTOP) 783151 UNIT/GM powder Apply to affected area 2 [...] as needed. ??? vitamin D, ergocalciferol, (DRISDOL) 15224 UNITS capsule Take 50,000 Units by mouth [...] treatment plan and all questions were answered CONDITIONING INSTALLER SUPERVISOR * Paige Salgado RN - 07/31/2019 8:43 AM CST Patient present here for follow up of right hip. He denies pain. His is present w/ him. CONDITIONING INSTALLER SUPERVISOR documented in this encounter Plan of Treatment Upcoming Encounters Date Type Department Care Team (Late st Contact Info) Description 07/09/2024 12:30 PM AIR CONDITIONING INSTALLER SUPERVISOR Office Visit [facility] - GI 1225 [facility], [place] [address] Twin Miller MD [facility] DIV [place] [address] 09/19/2024 2:00 PM CDT Office Visit [facility] - Orthopedic Surgery 1031 [place] [phone] Larry Alexander MD 1031 [facility] 280 [place] [address] documented as of this encounter Goals Goal [...] documented as of this encounter Care Teams Logistics Operations Director Relationship Specialty Start Date End Date Briana Medeiros MD [address] [place], [place] [phone] PCP - General 02/15/18 02/22/22 documented as of this encounter
--- OUTSIDE RECORDS SUMMARY | 2024-05-25 03:02 | XMS_ITS | Encounter Summary ---
Author Organization [facility] Address [address] [place] [address] Care Team Providers Care Supervisor Pleating Name Role Phone Briana Medeiros MD Primary Care Provider [phone] Encounter Details Date Type Department Care Team (Latest Contact Info) Description 06/19/2019 11:59 AM [facility] Hospital Encounter [facility] [address] [address] [place] [address] Larry Alexander MD [address] [facility] [address] [place] [address] Discharge Disposition: Home or Self Care Social [...] daily 57 capsule 05/06/2019 08/28/2019 nystatin (MYCOSTATIN) 043285 UNIT/GM powder Apply to affected area 2 [...] as needed. 10/12/2023 vitamin D, ergocalciferol, (DRISDOL) 90456 UNITS capsuleIndications:Ot her cirrhosis of liver (HCC) Take 50,000 Units by mouth every 7 days 0 02/02/2018 03/21/2023 documented as of this encounter Plan of Treatment Upcoming Encounters Date Type Department Care Team (Late st Contact Info) Description 07/09/2024 12:30 PM UNDERCOVER AGENT Office [place] [facility] [place] [address] [place] [address], [place] [address] Twin Miller MD [address] [place] [address] [place] [address] 09/19/2024 2:00 PM CDT Office Visit [facility] - Orthopedic Surgery [address] [place] [address] Larry Alexander MD [address] [facility] [address] [place] [address] documented as of this encounter Goals Goal [...] OR 2VW Routine 06/19/2019 12 :10 PM UNDERCOVER AGENT Surgical follow-up care documented in this encounter Results * XR PELVIS 1 OR 2VW (06/19/2019 12:10 PM UNDERCOVER AGENT) Anatomical Region Laterality Modality Pelvis Radiographic Shama ging 06/19/2019 1:16 PM UNDERCOVER AGENT Impressions 06/19/2019 1:20 PM UNDERCOVER AGENT IMPRESSION: 1.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 Adjacent heterotopic ossification, mildly increased. 2.Left total hip arthroplasty. This report was dictated by John Greene M.D. (radiology physician assistant). I, Dr. BANDAR DEE have personally reviewed and interpreted this examination/study. This report was electronically signed by BANDAR DEE ??on 06/19/2019 1:20 PM . Narrative 06/19/2019 1:20 PM UNDERCOVER AGENT EXAMINATION: XR HIP RIGHT 2VW OR MORE, [...] report was dictated by John Greene M.D. (radiology physician assistant). I, Dr. BANDAR DEE have personally reviewed [...] as of this encounter Care Teams Supervisor Pleating Relationship Specialty Start Date End Date Briana Medeiros MD [address] [place] [address] PCP - General 02/15/18 02/22/22 documented as of this encounter
--- OUTSIDE RECORDS SUMMARY | 2024-05-25 03:02 | XMS_ITS | Encounter Summary ---
Author Organization [facility] Address [address] [place] [address] Care Team Providers Care Acoustical Carpenter Name Role Phone Briana Medeiros MD Primary Care Provider [phone] Reason for Visit * Auth/Cert Specialty Diagnoses / Procedures Referred By Contac t Referred To Contact Diagnoses Prosthetic Joint Infection Referral ID Status Reason Start Date Expiration Date Visits Re quested Visits Authorized [id number] 1 1 Encounter Details Date Type Department Care Team (Latest Contact Info) Description 04/29/2019 5:18 AM SURVEY STATISTICIAN - 05/06/2019 2:23 PM SURVEY STATISTICIAN Hospital Encounter HC 2 ORTHO/NEW VIS [address] [place] [address] Yasmany Oh MD [address] [place] [id number] Kev Ordonez MD [address] [facility] [address] [place] [id number] Michelle Pratt MD [address] [place] [address] Surgery Orthopedics Discharge Disposition: Home Health Care [...] Comments Blood Pressure 120/71 05/06/2019 12:26 PM SURVEY STATISTICIAN Pulse 81 05/06/2019 12:26 PM SURVEY STATISTICIAN Temperature 37.1 ??C (98.8 ??F) 05/06/2019 12:[address] Respiratory Rate 20 05/06/2019 12:26 PM SURVEY STATISTICIAN Oxygen Saturation 98% 05/06/2019 12:26 PM SURVEY STATISTICIAN Inhaled Oxygen Concentration 21% 05/04/2019 2 :41 PM SURVEY STATISTICIAN Weight 99.8 kg (220 lb) 04/29/2019 5:26 AM SURVEY STATISTICIAN Height 180.3 cm (5' 11 ) 04/29/2019 5:26 AM SURVEY STATISTICIAN Body Mass Index 30.68 04/29/2019 5:26 AM SURVEY STATISTICIAN documented in this encounter Functional Status Functional [...] ??? S/P PICC central line placement 02/13/2019 [facility] VAT R basilic ??? Seizures [...] 50 mg by mouth once daily NYSTOP 332628 UNIT/GM powder Generic drug: nystatin Apply to [...] as needed vitamin D (ergocalciferol) 1.25 MG (74621 UT) capsule Commonly known as: DRISDOL Take [...] discharge diagnosis is: Abscess of right hip [4389172] Follow up with Primary Care Provider (PCP) [...] soaks. No scrubbing around incision. ?? Call [phone] to schedule the first follow-up appointment with [...] patient Kev Ordonez MD 05/06/2019 12:18 PM EY STATISTICIAN documented in this encounter Discharge Instructions * Discharge Instructions* Alberto De Los Santos MD - 05/02/2019 3:34 PM SURVEY STATISTICIAN [facility] Orthopedic Adult Reconstruction Surgery Patient Discharge [...] Anticoagulation: 4 weeks per medicine recommendations - Sutures/[place]: to be removed at three week clinic visit - Pain Medication: Mayer Narcotic Medication Patient Information You are being discharged/sent home with a prescription(s) for narcotic pain medicine (examples: Oxycodone, Hydrocodone, Roxicodone, Percocet, Mayer). Our goal is to control your pain, [...] Tylenol. - Many pain medicines (such as Mayer or Percocet) also contain Tylenol/Acetaminophen (this is [...] all medicine bottles to office visits. Call [phone] to schedule the first follow-up appointment with Dr. Alexander in 3 week(s) or for any questions Alberto De Los Santos MD EY STATISTICIAN documented in this encounter Medications at Time [...] daily 57 capsule 05/06/2019 08/28/2019 nystatin (MYCOSTATIN) 568115 UNIT/GM powder Apply to affected area 2 [...] as needed. 10/12/2023 vitamin D, ergocalciferol, (DRISDOL) 94362 UNITS capsuleIndications:Ot her cirrhosis of liver (HCC) Take 50,000 Units by mouth every 7 days 0 02/02/2018 03/21/2023 documented as of this encounter Progress Notes * Alberto Shell MD - 05/06/2019 10:01 AM CST [facility] Orthopedic Surgery Daily Progress Note José Miguel Keys, 68 year old, male : 1950 CSN: [id number] Primary Care Physician: Briana Medeiros MD - [...] clinic, c/o DONTAE Alonzo ( [facility]). Plan for 4 weeks of anticoagulation [...] soaks. No scrubbing around incision. ?? Call [phone] to schedule the first follow-up appointment with Dr. Alexander in 3 week(s) or for any questions Alberto Shell MD 05/06/2019 10:01 AM EY STATISTICIAN * Azeb Dye RN - 05/06/2019 9:43 AM CST [facility]ESAR spoke with of [facility] and faxed CLIF information to [phone] EY STATISTICIAN * James Dasilva PharmD - 05/06/2019 9:32 AM CST This patient was on vancomycin per pharmacy protocol. This order has been discontinued by Dr. Ordonez.Pending levels and/or doses have been canceled. This entry for documentation and informational purposes only. James Dasilva PharmD EY STATISTICIAN * Cheryl Mccoy PharmD - 05/06/2019 9:09 [...] appropriate. Cheryl Mccoy, PharmD 05/06/2019 9:09 AM EY STATISTICIAN * Alanna (Pt), Mike, PT - 05/06/2019 8:03 AM CST Physical Therapy Treatment Summary Chart review completed. Nursing consented for PT. Explained purpose of PT and patient consented to participate in therapy. 1. 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 Coronary artery disease without angina pectoris, unspecified vessel or lesion type, unspecified whether torres martinez or transplanted heart 3. Chronic atrial fibrillation [...] you, Mike Mondragon (Pt), PT x [phone] EY STATISTICIAN Mari Mondragon (Pt)Mike PT - 05/06/2019 8:02 [...] with w/w, WBAT R LE Outcome: Ongoing EY STATISTICIAN * Kristen Guadarrama, RN - 05/06/2019 4:33 [...] monitor Kristen Guadarrama RN 05/06/2019 4:35 AM EY STATISTICIAN * Yoko Hale RCP - 05/05/2019 7:27 PM CST Problem: Oxygenation/Respiratory Function Goal: Respiratory rate will be within normal limits for patient. Description José Miguel will achieve an even and unlabored respiratory pattern. Outcome: Ongoing José Miguel continues on scheduled nebulizer tx. Lungs sound diminished this shift. Will continue to monitor and wean as able. EY STATISTICIAN * Kev Ordonez MD - 05/05/2019 1:38 [...] results for input(s): MAGMGDL in the last 65206 hours. Recent Labs Component Name 09/19/17 0243 [...] (TYLENOL) tablet 650 mg, Oral, q6h PRN ybmxfncl-uwukkbtxu-fhhjyrogapz (MAALOX;MYLANTA) suspension 15 mL, Oral, q6h PRN [...] done in 05/01/2019 Allergies: PENICILLINS, LEVOFLOXACIN, SCOPOLAMINE Cookie Mixer Helper: Gómez Finch Referring Physician: Kev Ordonez MD [...] changes were blunted (less than 50% variation). EY STATISTICIAN * Raysa Nevarez MD - 05/05/2019 12:06 [...] results for input(s): CDIFFTOXINAB in the last 84985 hours. Recent Labs Component Name 04/24/19 1141 SEDRATE 70* Recent Labs Component Name 04/24/19 1140 08/15/17 0348 08/09/17 0745 CRP 1.41* 4.1* 32.0* No results for input(s): CK in the last 17684 hours. .No results for input(s): VANCOTROUGH, VANCOPEAK, VANCSERIES in the last 31058 hours. Invalid input(s): VANCORAND Recent Labs Component [...] the spine with epidural abscess treated at [facility] [address] -- left THR Plan - will continue on vanc and rifampin with hardware in place - monitor labs On discharge the p.o. doxycycline for 2 weeks followed by chronic suppression daily Please be advised that part of this text was done using voice recognition software. Errors may havebeen missed upon review. Raysa Nevarez MD EY STATISTICIAN * Kristie Martinez, PT - 05/05/2019 10:20 [...] discharge summary. Kristie Martinez, PT x [phone] EY STATISTICIAN * Cheryl Mccoy, PharmD - 05/05/2019 9:41 [...] appropriate. Cheryl Mccoy, EliazarNia 05/05/2019 9:41 AM EY STATISTICIAN * Alberto Shell MD - 05/05/2019 8:54 AM CST [facility] Orthopedic Surgery Daily Progress Note José Miguel Keys, 68 year old, male : 1950 CSN: [id number] Primary Care Physician: Briana Medeiros MD - [...] clinic, c/o DONTAE Alonzo ( [facility]). Plan for 4 weeks of anticoagulation [...] soaks. No scrubbing around incision. ?? Call [phone] to schedule the first follow-up appointment with Dr. Alexander in 3 week(s) or for any questions Alberto Shell MD 05/05/2019 8:54 AM EY STATISTICIAN * Cleo Cota RCP - 05/05/2019 7:56 AM CST Mr. Keys remains on scheduled neb tx's to maintain home regime therapy of 4x's daily.Cleo Cota, Respiratory Care Practitioner 05/05/2019 7:57 AM EY STATISTICIAN * Jayshree Gilliam - 05/05/2019 4:25 AM [...] knowledge of self-care management skills Outcome: Ongoing EY STATISTICIAN * Genevieve Crowder RCP - 05/04/2019 9:20 PM CST Problem: Oxygenation/Respiratory Function Goal: Patent airway Outcome: Ongoing Goal: Respiratory rate will be within normal limits for patient. Outcome: Ongoing Mr. Keys is taking Q 6 neb treatments along with BID inhalers,lung sounds are clear diminished. RTwill continue to monitor.Genevieve Crowder Respiratory Care Practitioner 05/04/2019 9:21 PM EY STATISTICIAN * Nika Montoya RN - 05/04/2019 7:02 PM CST Refused narc pain control. Tylenol has been effective. Aware of safety limitations. 1 person assistwith transfers and toileting for safety and assist with tubing. EY STATISTICIAN * Nika Montoya RN - 05/04/2019 7:00 PM CST Shift report Pleasant today; Right sided IV infiltrated. (Odalis took care of this) Applied warm compress. He is worried about it. currently at bedside. New PRN order for mylanta at his request. 1 asssit (withwound vac) to transfer and toilet. EY STATISTICIAN * Tammy Haynes OT - 05/04/2019 1:27 [...] nasal swab+ ??? Obstructive sleep apnea ??? VAELNTINA (obstructive sleep apnea) ??? Other cirrhosis of liver ??? Peripheral neuropathy ??? Psoriasis ??? S/P PICC central line placement 02/13/2019 [facility] VAT R basilic ??? Seizures ??? Squamous cell carcinoma ??? 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 Pt's spouse is home and can help as needed. Home Situation: Type of Residence: Private Residence Lives with:: Spouse Home Structure: (tri level home) Steps to Enter: 1(from back door) Handrails: Indoor Ramp: No Primary Bedroom: Second Floor Primary Bathroom: First Floor Bathroom : Tub/Shower Combo Equipment At Home: Commode-Bedside;Walker-2 Wheeled;Walker-4 Wheeled with Seat;Wheelchair-Standard;Lehr Stripper;Dressing Stick;Sock Aid(drop arm BSC) Prior Level of [...] on observation and clinical judgement): Feeding: Modified [place] Oral Facial Hygiene: Stand By Assist(limited endurance [...] summary. Tammy Haynes OTD, OTR/L Ascom [phone] EY STATISTICIAN * Nika Montoya RN - 05/04/2019 12:59 PM CST 1305 Medication flagged as too soon. Nora at pharmacy notified and to change time to 1600. Medication already Prepared. Insturctions given to disregard and a new one will be sent. EY STATISTICIAN * Sai Padilla, PT - 05/04/2019 12:11 [...] discharge summary. Sai Padilla, PT x [phone] EY STATISTICIAN * Fay Otero, HOUSING OFFICER - 05/04/2019 10:41 AM CST Social Work Progress Note Discharge Plan Disposition: home with [facility] -vs - SNF Transportation: Transportation at discharge: Family Anticipated Discharge Date: Anticipated Discharge Date: 05/03/19 Contacts: Trinity Keys, spouse, Comments: None Fay Otero, HOUSING OFFICER [phone] EY STATISTICIAN * Tammy Haynes OT - 05/04/2019 9:44 AM CST Occupational therapy orders received; chart review completed. Unable to complete visit due to pt eating breakfast (just started). Will attempt to see patient at a later date/time as OT schedule allows. Tammy Haynes OTD, OTR/L Ascom [phone] EY STATISTICIAN * Michelle Pratt MD - 05/04/2019 9:30 [...] results for input(s): MAGMGDL in the last 74490 hours. Recent Labs Component Name 09/19/17 0243 [...] (TYLENOL) tablet 650 mg, Oral, q6h PRN ozhnzvxg-wteelsmev-tnnsnouptxl (MAALOX;MYLANTA) suspension 15 mL, Oral, q6h PRN [...] done in 05/01/2019 Allergies: PENICILLINS, LEVOFLOXACIN, SCOPOLAMINE Cookie Mixer Helper: Gómez Finch Referring Physician: Kev Ordonez MD [...] changes were blunted (less than 50% variation). EY STATISTICIAN * Sumaya, Alberto Dhillon MD - 05/04/2019 8:55 AM CST [facility] Orthopedic Surgery Daily Progress Note José Miguel Keys, 68 year old, male : 1950 CSN: [id number] Primary Care Physician: Briana Medeiros MD - [...] clinic, c/o DONTAE Alonzo ( [facility]). Plan for 4 weeks of anticoagulation [...] soaks. No scrubbing around incision. ?? Call [phone] to schedule the first follow-up appointment with Dr. Alexander in 3 week(s) or for any questions Alberto Shell MD 05/04/2019 8:56 AM EY STATISTICIAN * Raysa Nevarez MD - 05/04/2019 7:11 [...] results for input(s): CDIFFTOXINAB in the last 03396 hours. Recent Labs Component Name 04/24/19 1141 SEDRATE 70* Recent Labs Component Name 04/24/19 1140 08/15/17 0348 08/09/17 0745 CRP 1.41* 4.1* 32.0* No results for input(s): CK in the last 40220 hours. .No results for input(s): VANCOTROUGH, VANCOPEAK, VANCSERIES in the last 93799 hours. Invalid input(s): VANCORAND Recent Labs Component [...] the spine with epidural abscess treated at [facility] [address] -- left THR Plan - will continue on vanc and rifampin with hardware - monitor labs discussed with Dr. Pratt Please be advised that part of this text was done using voice recognition software. Errors may havebeen missed upon review. Raysa Nevarez MD EY STATISTICIAN * Hoa Poe - 05/04/2019 5:34 AM CST During prior administration of pain medication patient inquired if I was given him Oxy for his pain. Orginally consumer loan underwriter had administered tramadol alternating with tylenol. Upon this last request patient seemed to be in a little more discomfort, with bowel, movement, he then asked for pain medication.Director Biomedical Engineering pulled oxy for the pain better adhere patient pain needs, medication was scanned and when heasked what he was getting consumer loan underwriter explained that oxy was stronger and [...] prefers to alternate with tramadol,tylenol or Bufferin. EY STATISTICIAN * Cee Boyce RCP - 05/04/2019 5:12 [...] Boyce, Respiratory Care Practitioner 05/04/2019 5:15 AM EY STATISTICIAN * Hoa Poe - 05/04/2019 5:02 AM [...] knowledge of self-care management skills Outcome: Ongoing EY STATISTICIAN * Nika Montoya RN - 05/03/2019 4:30 PM CST Shift Report Resident pleasant and cooperative this shift. at bedside this evening. Biggest issue today waspain management. Provider requested patient have pain meds alternated every 2 hours and also increased avail. I had difficulty with the pump today but the vanc was administered. Swelling to eyes has improved today. EY STATISTICIAN * Nika Montoya RN - 05/03/2019 4:16 [...] shift. More effective pain control. Continue goal. EY STATISTICIAN * Eula Verma RCP - 05/03/2019 1:56 PM CST Problem: Oxygenation/Respiratory Function Goal: Patent airway Note: José Miguel continues on scheduled nebulizer tx. Lungs sound diminished this shift. Will continue to monitor and wean as able EY STATISTICIAN * Brenden Ellis, PharmD - 05/03/2019 12:15 [...] needed. Brenden Ellis, PharmD 05/03/2019 2:16 PM EY STATISTICIAN * Michelle Pratt MD - 05/03/2019 12:14 [...] results for input(s): MAGMGDL in the last 94740 hours. Recent Labs Component Name 09/19/17 0243 [...] done in 05/01/2019 Allergies: PENICILLINS, LEVOFLOXACIN, SCOPOLAMINE Cookie Mixer Helper: Gómez Finch Referring Physician: Kev Ordonez MD [...] changes were blunted (less than 50% variation). EY STATISTICIAN * Wendy Cid, PT - 05/03/2019 10:54 AM CST Physical Therapy Treatment Today's Date: 05/03/2019 Patient Name: José Miguel Keys Referring Physician:Michelle Pratt MD Referral Diagnosis: 1. 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 Coronary artery disease without angina pectoris, unspecified vessel or lesion type, unspecified whether torres martinez or transplanted heart 3. Chronic atrial fibrillation 4. Diagnosis unknown PT Referral: evaluation and treatment Precaution/ Restrictions: Falls and WBAT R LE at present time History of Present Illness: Patient is a 68 y/o male who was admitted from home to [facility] on 04/29/19 with dx of: infected right [...] PT services. Wendy Pereira, PT, DPT Ascom #[phone] EY STATISTICIAN * Raysa Nevarez MD - 05/03/2019 9:25 [...] results for input(s): CDIFFTOXINAB in the last 35868 hours. Recent Labs Component Name 04/24/19 1141 SEDRATE 70* Recent Labs Component Name 04/24/19 1140 08/15/17 0348 08/09/17 0745 CRP 1.41* 4.1* 32.0* No results for input(s): CK in the last 31583 hours. .No results for input(s): VANCOTROUGH, VANCOPEAK, VANCSERIES in the last 03913 hours. Invalid input(s): VANCORAND Recent Labs Component [...] the spine with epidural abscess treated at [facility] [address] -- left THR Plan - will continue on vanc and rifampin with hardware - monitor labs discussed with Dr. Alexander yesterday Please be advised that part of this text was done using voice recognition software. Errors may havebeen missed upon review. Raysa Nevarez MD EY STATISTICIAN * Leslye Montgomery RN - 05/03/2019 5:31 [...] reach. Leslye Montgomery RN 05/03/2019 5:32 AM EY STATISTICIAN * Alberto Shell MD - 05/03/2019 2:22 AM CST [facility] Orthopedic Surgery Daily Progress Note José Miguel Keys, 68 year old, male : 1950 CSN: [id number] Primary Care Physician: Briana Medeiros MD - [...] clinic, c/o DONTAE Alonzo ( [facility]). Plan for 4 weeks of anticoagulation [...] soaks. No scrubbing around incision. ?? Call [phone] to schedule the first follow-up appointment with Dr. Alexander in 3 week(s) or for any questions Alberto Shell MD 05/03/2019 9:32 AM EY STATISTICIAN * Leslye Montgomery RN - 05/03/2019 12:35 AM CST Problem: Pain/Discomfort Goal: Patient uses pharmacological and non-pharmacological pain management strategies. Outcome: Ongoing Pain moderately controlled with PRN Fentanyl. Problem: Oxygenation/Respiratory Function Goal: Respiratory rate will be within normal limits for patient. Outcome: Ongoing RR and O2 sats WNL. EY STATISTICIAN * Amanda Merritt RN - 05/02/2019 4:25 PM CST Called down to waiting room. No family present. EY STATISTICIAN * Alberto De Los Santos MD - 05/02/2019 3:27 PM CST [facility] Orthopedic Surgery Postoperative Check José Miguel Keys, 68 year old, male : 1950 CSN: [id number] Admitted: 04/29/2019 5:18 AM Subjective Nausea/vomiting: none [...] after discharge for suture/staple removal. Alberto De Lo sSantos MD 05/02/2019 3:27 PM EY STATISTICIAN * Kev Ordonez MD - 05/02/2019 2:55 [...] results for input(s): MAGMGDL in the last 02020 hours. Recent Labs Component Name 09/19/17 0243 [...] Feel free to text page me through [employer], login smsl EY STATISTICIAN * Tammy Haynes OT - 05/02/2019 1:05 PM CST Occupational therapy orders received; chart review completed. Unable to complete visit due to pt MIRYAM for R I&D, hardware removal, and antibiotic spacer placement. Will attempt to see patient at alater date/time as OT schedule allows. Tammy Haynes OTD, OTR/L Ascom [phone] EY STATISTICIAN * Des Pereira, Wendy L, PT - 05/02/2019 11:30 AM CST Physical Therapy Treatment Today's Date: 05/02/2019 Patient Name: José Miguel Keys Referring Physician:Kev Ordonez MD Referral Diagnosis: 1. 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 Coronary artery disease without angina pectoris, unspecified vessel or lesion type, unspecified whether torres martinez or transplanted heart 3. Chronic atrial fibrillation 4. Diagnosis unknown PT Referral: evaluation and treatment Precaution/ Restrictions: Falls and WBAT R LE at present time History of Present Illness: Patient is a 68 y/o male who was admitted from home to [facility] on 04/29/19 with dx of: infected right total hip arthroplasty and persistent wound drainage s/p 02/08 right hip I&D, head and spacer exchange . SUBJECTIVE: Patient seen at [facility] on 2E this AM for skilled [...] for skilled PT treatment sitting upright in [facility] on room air in no apparent distress [...] services. Wendy Pereira, PT, DPT Ascom #[phone] EY STATISTICIAN * Fay Otero MSW - 05/02/2019 11:29 AM CST Case reviewed with RN/CM during morning huddle. Per huddle pt will need some level of rehab at d/c.Pt scheduled for surgery to remove hardware and cement spacer to be placed. HOUSING OFFICER will continue to f/u and coordinate EY STATISTICIAN * Raysa Nevarez MD - 05/02/2019 9:47 [...] results for input(s): CDIFFTOXINAB in the last 50500 hours. Recent Labs Component Name 04/24/19 1141 SEDRATE 70* Recent Labs Component Name 04/24/19 1140 08/15/17 0348 08/09/17 0745 CRP 1.41* 4.1* 32.0* No results for input(s): CK in the last 42603 hours. .No results for input(s): VANCOTROUGH, VANCOPEAK, VANCSERIES in the last 97580 hours. Invalid input(s): VANCORAND Recent Labs Component [...] the spine with epidural abscess treated at [facility] [address] -- left THR Plan --surgery - will continue on vanc based on prior cx and rifampin with hardware - monitor labs Discussed with Discussed diet Please be advised that part of this text was done using voice recognition software. Errors may havebeen missed upon review. Raysa Nevarez MD EY STATISTICIAN * Larry Alexander MD - 05/02/2019 6:23 AM CST Images from the original note were not included. [facility] Orthopedic Surgery Daily Progress Note José Miguel Keys, 68 year old, male : 1950 CSN: [id number] Primary Care Physician: Briana Medeiros MD - [...] Procedure Component Value - Date/Time CULTURE MRSA [[id number]] (Normal) Collected: 04/29/192140 Lab Status: Final result Specimen: Micro from Rectum Updated: 05/01/19523 Culture Negative for methicillin-resistant Staphylococcus aureus (MRSA) CULTURE VRE [[id number]] (Abnormal) Collected: 04/29/192140 Lab Status: Final result Specimen: Micro from Rectum Updated: 05/01/19 0609 Culture Growth of Enterococcus species vancomycin-resistant (VRE) Narrative: For vancomycin-resistant enterococci (VRE), contact precautions are required. For any questions, call Infection Prevention. CULTURE ABSCESS+GRAM STAIN [[id number]] (Normal) Collected: 04/29/192140 Lab Status: Preliminary result Specimen: Micro from Hip Updated: 05/01/19 142 Culture Culture in progress Gram Stain Rare Polymorphonuclear cells No organisms seen CULTURE BLOOD [[id number]] Collected: 04/29/191908 Lab Status: Preliminary result Specimen: Blood Peripheral Updated: 05/01/192199 Culture No growth CULTURE BLOOD [[id number]] Collected: 04/29/191908 Lab Status: Preliminary result Specimen: Blood Peripheral Updated: 05/01/192199 Culture No growth CULTURE MRSA [[id number]] (Abnormal) Collected: 04/29/191755 Lab Status: Final result [...] by mouth once daily ??? nystatin (NYSTOP) 895612 UNIT/GM powder Apply to affected area 2 [...] as needed. ??? vitamin D, ergocalciferol, (DRISDOL) 32558 UNITS capsule Take 50,000 Units by mouth [...] ??? S/P PICC central line placement 02/13/2019 [facility] VAT R basilic ??? Seizures [...] Please see resident's note for further details. EY STATISTICIAN * Clarice Carver RN - 05/02/2019 6:06 AM CST Pt. A & O x 4, c/o right hip pain, prn meds provided, up adlib with walker to bathroom,on cpap @ bedtime,NPO since midnight, reminded to call for any assistance, call light within easy reach. EY STATISTICIAN * Genevieve Crowder RCP - 05/02/2019 1:36 AM CST Problem: Oxygenation/Respiratory Function Goal: Patent airway Outcome: Ongoing Goal: Patient exhibits no evidence of increased respiratory distress Outcome: Ongoing Mr. Keys is taking Q 6 neb treatments along with his HCPAP, RT will continue to monitor.Genevieve Crowder, Respiratory Care Practitioner 05/02/2019 1:37 AM EY STATISTICIAN * Clarice Carver RN - 05/01/2019 9:45 [...] (Comment) Recommended Access Route: PO Outcome: Ongoing EY STATISTICIAN * Efrain Rojas RN - 05/01/2019 8:06 PM CST Shift summary: patient up to recliner chair, pain med given as ordered, oint applied to both eyes due to redness and itching,l hip dressing intact appetite good, family at bedside, call light and phone within reach. EY STATISTICIAN * Efrain Rojas RN - 05/01/2019 5:07 PM CST Resp Therapy notified to complete EKG this evening, but realized it was already completed. EY STATISTICIAN * Kev Ordonez MD - 05/01/2019 3:22 [...] results for input(s): MAGMGDL in the last 68836 hours. Recent Labs Component Name 09/19/17 0243 [...] Feel free to text page me through [employer], login smsl EY STATISTICIAN * Bryanna Jc, PharmD - 05/01/2019 1:36 [...] adjust regimen if necessary. Bryanna Jc, PharmD EY STATISTICIAN * Fay Otero, HOUSING OFFICER - 05/01/2019 1:23 PM CST CASE reviewed during MDR rounds. PER rounds pt will need some level of rehab at d/c. HOUSING OFFICER will continue to follow and coordinate d/c. EY STATISTICIAN * Paz Chen RN - 05/01/2019 1:21 [...] during the day. He is established with [facility]. Patient has had several rehab stays since his original hip replacement. He lives in [facility]. He will consider acute rehab [facility] at [facility] if necessary. Patient does not know if he willneed home iv anbx. Patient does know he will be 3 months NWB L le. Patient states he will be hospitalized for 2 weeks. Cm informed patient he may not need to stay that long Patient is a [place] [employer] [place] with 100% disability. 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 Basic Needs Assessment (BNA) Score: 9 Complex Needs Assessment (APPEALS WRITER) Score: 10 Social Support Domain Score: 2 [...] Medications: Transportation: Name: Paz Chen RN Phone: [phone] EY STATISTICIAN * Wendy Cid, PT - 05/01/2019 11:18 AM CST Physical Therapy Initial Evaluation Today's Date: 05/01/2019 Patient Name: José Miguel Keys Referring Physician:Kev Ordonez MD Referral Diagnosis: 1. 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 Coronary artery disease without angina pectoris, unspecified vessel or lesion type, unspecified whether torres martinez or transplanted heart 3. Chronic atrial fibrillation [...] ??? S/P PICC central line placement 02/13/2019 [facility] VAT R basilic ??? Seizures [...] puffy, itchy ??? Scopace [Scopolamine] Other and OVERNIGHT HOUSEPERSON Dysfunction delirium History of Present Illness: Patient is a 68 y/o male who was admitted from home to [facility] on 04/29/19 with dx of: infected right [...] care will be discussed with Physical Therapist Industrial Workers(s) who will be assisting withtreatments. If this is the last Physical Therapy visit, this serves as the discharge summary. Thank you for referring this patient for skilled PT services. Wendy Pereira, PT, DPT Ascom #[id number] EY STATISTICIAN * Alanna (Ot)Mike OT - 05/01/2019 10:38 [...] schedule permits. Thank you, LASHANDA Padgett/Alissa Ascom#[id number] EY STATISTICIAN * Raysa Nevarez MD - 05/01/2019 8:44 AM CST Infectious Diseases Consult Note Patient's Primary Care Physician: Briana Medeiros MD Reason for Consultation: Rt hip septic arthritis Referring Physcian: Kev Ordonez MD Name: José Miguel eKys Age: [age] year old 2 Hospital course [...] results for input(s): CDIFFTOXINAB in the last 56893 hours. Recent Labs Component Name 04/24/19 1141 SEDRATE 70* Recent Labs Component Name 04/24/19 1140 08/15/17 0348 08/09/17 0745 CRP 1.41* 4.1* 32.0* No results for input(s): CK in the last 76057 hours. .No results for input(s): VANCOTROUGH, VANCOPEAK, VANCSERIES in the last 86714 hours. Invalid input(s): VANCORAND Recent Labs Component [...] the spine with epidural abscess treated at [facility] [address] -- left THR Plan --surgery tomorrow - will continue on vanc based on prior cx and rifampin with hardware - monitor labs Please be advised that part of this text was done using voice recognition software. Errors may havebeen missed upon review. Raysa Nevarez MD EY STATISTICIAN * Alberto De Los Santos MD - 05/01/2019 7:30 AM CST Images from the original note were not included. [facility] Orthopedic Surgery Daily Progress Note José Miguel Keys, 68 year old, male : 1950 CSN: [id number] Primary Care Physician: Briana Medeiros MD - [...] Procedure Component Value - Date/Time CULTURE MRSA [[id number]] (Normal) Collected: 04/29/192140 Lab Status: Final result Specimen: Micro from Rectum Updated: 05/01/19523 Culture Negative for methicillin-resistant Staphylococcus aureus (MRSA) CULTURE VRE [[id number]] (Abnormal) Collected: 04/29/192140 Lab Status: Final result Specimen: Micro from Rectum Updated: 05/01/19 06 Culture Growth of Enterococcus species vancomycin-resistant (VRE) Narrative: For vancomycin-resistant enterococci (VRE), contact precautions are required. For any questions, call Infection Prevention. CULTURE ABSCESS+GRAM STAIN [[id number]] Collected: 04/29/192140 Lab Status: Preliminary result Specimen: Micro from Hip Updated: 04/30/19627 Gram Stain Rare Polymorphonuclear cells No organisms seen CULTURE BLOOD [[id number]] Collected: 04/29/191908 Lab Status: Preliminary result Specimen: Blood Peripheral Updated: 04/30/192199 Culture No growth 24 hours CULTURE BLOOD [[id number]] Collected: 04/29/191908 Lab Status: Preliminary result Specimen: Blood Peripheral Updated: 04/30/192199 Culture No growth 24 hours CULTURE MRSA [[id number]] (Abnormal) Collected: 04/29/191755 Lab Status: Final result [...] De Los Santos MD 05/01/2019 7:30 AM EY STATISTICIAN * Lani Gomez RN - 05/01/2019 4:57 [...] Will continue to monitor. Lani Gomez rn EY STATISTICIAN * Karina Slaughter RN - 04/30/2019 7:33 [...] monitor. Karina Slaughter RN 04/30/2019 7:36 PM EY STATISTICIAN * Kev Ordonez MD - 04/30/2019 5:20 [...] results for input(s): MAGMGDL in the last 68939 hours. Recent Labs Component Name 09/19/17 0243 [...] Feel free to text page me through [employer], login smsl EY STATISTICIAN * Azeb Dye RN - 04/30/2019 3:06 PM CST Case Management Initial Assessment Case Management screen completed & Welcome Letter given. 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 Recurrent wound dehiscence with drainage. Poss sx. Basic Needs Assessment (BNA) Score: 9 Complex Needs Assessment (APPEALS WRITER) Score: 10 Social Support Domain Score: 2 Medical Status and Health Trajectory Domain Score: 8 Medical Home and Access to Services Domain Score: 0 Recommended Interventions for Patient:: Hospitality Associate, Palliative Care, Physical Therapy, Occupational Therapy and Nutritional Services Comment: pt will need HHC order if to d/c home. Nutrition consulted. Awaiting POC to determine needs. Met with patient Lives with: Spouse Family Support (name and phone): Extended Emergency Contact Information Primary Emergency Contact: Trinity Keys Address: [address] [place] [address] [place] [address] [facility] Mobile Relation: Spouse Animal Husbandman needed? No Anticipated Discharge Date: 05/03/19 Prior Level of Functioning: Anticipated level of care at discharge: Comment: TBD Transportation at Discharge: Family Transportation to MD appointments:Family Equipment at Home: walker Additional equipment needed at home but does not have: TBD If no PCP, action taken: n/s Pharmacy benefit: Yes Hospitality Associate Referral: Not at this time If patient requires HHC at discharge, he/she requests: Pt's verified he is [facility] Will continue to follow. For any questions or needs please contact: Rubber Goods Inspector Name/Phone number: Azeb Dye RN [phone] EY STATISTICIAN * Raysa Nevarez MD - 04/30/2019 12:59 [...] results for input(s): CDIFFTOXINAB in the last 82512 hours. Recent Labs Component Name 04/24/19 1141 SEDRATE 70* Recent Labs Component Name 04/24/19 1140 08/15/17 0348 08/09/17 0745 CRP 1.41* 4.1* 32.0* No results for input(s): CK in the last 00111 hours. .No results for input(s): VANCOTROUGH, VANCOPEAK, VANCSERIES in the last 75794 hours. Invalid input(s): VANCORAND Recent Labs Component [...] the spine with epidural abscess treated at [facility] [address] -- left THR Plan -- surgery planned in in June with removal of HW - will continue on vanc based on prior cx and rifampin with hardware - monitor labs Discussed with Dr. Alexander Please be advised that part of this text was done using voice recognition software. Errors may havebeen missed upon review. Raysa Nevarez MD EY STATISTICIAN * Karina Slaughter RN - 04/30/2019 10:29 AM CST Problem: Infection Goal: Signs and symptoms of infections are decreased or avoided Outcome: Ongoing Antibiotics given as ordered Problem: Isolation Goal: Prevent Transmission of Infection Outcome: Ongoing PPE worn Problem: Pain/Discomfort Goal: Patient uses pharmacological and non-pharmacological pain management strategies. Outcome: Ongoing Pain medication given as needed EY STATISTICIAN * Leah Franklin RCP - 04/30/2019 7:40 AM CST Mr Keys received his 0800, 1400 treatments; he remains on room air; will continue to monitor. Leah Franklin, Respiratory Care Practitioner 04/30/2019 1:58 PM EY STATISTICIAN * Alberto De Los Santos MD - 04/30/2019 6:49 AM CST [facility] Orthopedic Surgery Daily Progress Note José Miguel Keys, 68 year old, male : 1950 CSN: [id number] Primary Care Physician: Briana Medeiros MD - [...] Procedure Component Value - Date/Time CULTURE MRSA [[id number]] Collected: 04/29/192140 Lab Status: In process Specimen: Micro from Rectum Updated: 04/29/192319 CULTURE VRE [[id number]] Collected: 04/29/192140 Lab Status: In process Specimen: Micro from Rectum Updated: 04/29/192319 CULTURE ABSCESS+GRAM STAIN [[id number]] Collected: 04/29/192140 Lab Status: Preliminary result Specimen: Micro from Hip Updated: 04/30/19627 Gram Stain Rare Polymorphonuclear cells No organisms seen CULTURE BLOOD [[id number]] Collected: 04/29/191908 Lab Status: In process Specimen: Blood Peripheral Updated: 04/29/191917 CULTURE BLOOD [[id number]] Collected: 04/29/191908 Lab Status: In process Specimen: Blood Peripheral Updated: 04/29/191917 CULTURE MRSA [[id number]] Collected: 04/29/191755 Lab Status: In process Specimen: [...] De Los Santos MD 04/30/2019 6:49 AM EY STATISTICIAN * Chris Carter RN - 04/30/2019 12:01 [...] Height: Chris Carter RN 04/30/2019 7:55 AM EY STATISTICIAN * Chris Carter RN - 04/30/2019 12:01 AM CST Problem: Low Fall Risk (Score 7-10) Goal: Patient will remain as independent as possible. Outcome: Ongoing Problem: Infection Goal: Signs and symptoms of infections are decreased or avoided Outcome: Ongoing Problem: Isolation Goal: Prevent Transmission of Infection Outcome: Ongoing EY STATISTICIAN * Oziel De Los Santos RN - [...] Call light within reach Continue to monitor EY STATISTICIAN * Cheryl Mccoy PharmD - 04/29/2019 1:17 [...] monitor. Cheryl Mccoy PharmD 04/29/2019 1:18 PM EY STATISTICIAN * Hoa Poe - 04/29/2019 6:56 AM [...] 04/29/2019642 by Hoa Poe RN Outcome: Ongoing EY STATISTICIAN * Hoa Poe - 04/29/2019 6:56 AM CST Problem: Isolation Goal: Prevent Transmission of Infection 04/29/2019 0656 by Hoa Poe RN Outcome: Ongoing 04/29/2019 0656 by Hoa Poe RN Outcome: Ongoing 04/29/2019 0643 by Hoa Poe RN Outcome: Ongoing EY STATISTICIAN * Hoa Poe - 04/29/2019 6:44 AM CST Patient presents AxO 3-4 able to make needs known to staff. Ambulates with walker on a normal bases; however uses a wheelchair for longer distances per . Direct admit from [place] [facility] due to the suspicion of sepsis of right hip arthroplasty. Dr. Oh admitting provider;orders placed. Vitals assessed and documented. Original surgery performed 2005. Recent I/D 02/04 AND 02/[address] [facility]. reports that while helping to change she notices that the gauze in place was saturated and running down his leg. The area was also warm to the touch; it was then that they decided to head to the hospital. 1 gram of Vanc was administered at outside facility. Report called to nurse from [facility] [phone]. Allergy documented, fall precautions in place. Patient [...] send valuable home to include cellphone and assembler fluorescent lights that the ministry recommends to send valuable to security due to not being able to monitor items throughout his stay. Both verbalized understanding. EY STATISTICIAN * Hoa Poe - 04/29/2019 6:43 AM [...] Goal: Prevent Transmission of Infection Outcome: Ongoing EY STATISTICIAN documented in this encounter H&P Notes * Dwayne Nichols APRN-RECEIPT AND REPORT CLERK - 04/29/2019 5:49 AM CST H&P for Dr. [facility] Dipak Nichols MANAGER LIBRARY- CAMP HEAD COUNSELOR HPI 68 yo male with a history [...] file Gets together: Not on file Attends alevism service: Not on file Active member of [...] by mouth once daily ??? nystatin (NYSTOP) 857174 UNIT/GM powder Apply to affected area 2 [...] as needed. ??? vitamin D, ergocalciferol, (DRISDOL) 82736 UNITS capsule Take 50,000 Units by mouth [...] retention, urinary frequency, incontinence, passage of stones OVERNIGHT HOUSEPERSON: Cranial: disturbances of smell, visual disturbances, facial [...] results for input(s): TROPPOCT in the last 09610 hours. No results for input(s): TROPONIN in the last 25839 hours. No results for input(s): BNPPOCT in the last 48101 hours. No results for input(s): CKMBPOCT in the last 54356 hours. No results for input(s): CKMB in the last 67227 hours. No orders to display ASSESSMENT/PLAN Right [...] guided by the work up described above. EY STATISTICIAN Associated attestation - Kev Ordonez MD - 04/29/2019 4:55 PM SURVEY STATISTICIAN [facility] Hospital[facility] History and Physical I have [...] Feel free to text page me through [employer], login smsl documented in this encounter Consult Notes * Anika De León LPN - 05/06/2019 12:26 PM CSTAssociated Order(s): IP CONSULT TO HOME HEALTH CARE Home health referral received. Per patient he is currently open with [facility]. H&P, Wound orders faxed to [facility] at this time. Thanks, ANIKA DE LEÓN LPN [facility] Health at Home Home Health Pharmacy Benefits Coordinator [phone] After 4:30 or over the weekend call [phone] option 1 EY STATISTICIAN * Lana Narayanan, ASHWINI/SALVADOR - 04/30/2019 11:01 [...] results for input(s): PREALBUMIN in the last 34175 hours. No data found. PERTINENT MEDICATIONS FOR [...] AICHA Barrera 04/30/2019 11:21 AM Ascom [id number] EY STATISTICIAN * Armida Gomez MD - 04/29/2019 6:40 [...] cirrhosis, left THR,h/o MRSA sepsis treated at [facility] in 2018, complicated with epidural abscess [...] puffy, itchy ??? Scopace [Scopolamine] Other and OVERNIGHT HOUSEPERSON Dysfunction delirium Exam Vitals: 04/29/19 0526 04/29/19 [...] results for input(s): CDIFFTOXINAB in the last 43477 hours. Recent Labs Component Name 04/24/19 1141 SEDRATE 70* Recent Labs Component Name 04/24/19 1140 08/15/17 0348 08/09/17 0745 CRP 1.41* 4.1* 32.0* No results for input(s): CK in the last 31505 hours. .No results for input(s): VANCOTROUGH, VANCOPEAK, VANCSERIES in the last 93993 hours. Invalid input(s): VANCORAND Recent Labs Component [...] the spine with epidural abscess treated at [facility] with cage in place -- left THR Plan - consider Ct of the rt hip to r/o deeper abscess - pls cx drainage - ortho may plan for surgery in am? - will continue on vanc based on prior cx and will add rifampin with hardware - monitor labs - consider bcx Armida Gomez MD EY STATISTICIAN * Alberto De Los Santos MD - 04/29/2019 8:12 AM CST [facility] Orthopedic Surgery Consultation Note José Miguel Keys, 68 year old, male : 1950 CSN: [id number] Primary Care Physician: Briana Medeiros MD Chief Complaint No chief complaint on file. Admission Date/Time: 04/29/2019 5:18 AM Today's Date/Time: 04/29/2019 8:12 AM HPI Consulting Service: medicine [facility] Orthopedic Surgery consulted for evaluation/management [...] yesterday with new wound drainage. Transferred to [facility] for higher level of care. [...] puffy, itchy ??? Scopace [Scopolamine] Other and OVERNIGHT HOUSEPERSON Dysfunction delirium Medications Current Facility-Administered Medications Medication [...] De Los Santos MD 04/29/2019 8:12 AM EY STATISTICIAN documented in this encounter OR Notes * Brief Op Note - Alberto De Los Santos MD - 05/02/2019 1:47 PM SURVEY STATISTICIAN Brief Op Note Procedure: IRRIGATION AND DEBRIDEMENT RIGHT HIP ABSCESS Patient Name: José Miguel Keys Date of Service: 05/02/2019 Pre-Op Diagnosis: Diagnosis unknown [R69] Post-Op Diagnosis: right hip superficial abscess Surgeon(s) and Role: * Larry Alexander MD - Primary Industrial Workers(s): Justin De Los Santos MD Anesthesia Type: [...] deep culture. Alberto De Los Santos MD EY STATISTICIAN * Operative - Larry Alexander MD - [...] application right hip/incisional wound VAC application Surgeon: Industrial Workers: Indications for procedure: Patient is a 5-year-old [...] procedure and I was present entire case EY STATISTICIAN documented in this encounter Miscellaneous Notes * ACP (Advance Care Planning) - Dwayne Nichols APRN-RECEIPT AND REPORT CLERK - 04/29/2019 9:48 AM CST Advanced Care [...] as an Advanced Directive. Total time spent [id number] in education and discussion related to advanced care plannin minutes. SHAGUFTA Vargas 04/29/2019 EY STATISTICIAN documented in this encounter Plan of Treatment Upcoming Encounters Date Type Department Care Team (Late st Contact Info) Description 07/09/2024 12:30 PM SURVEY STATISTICIAN Office Visit [facility] - GI [address] [place] [address], [place] [id number] Twin Miller MD [address] [place] [address] [place] [address] 09/19/2024 2:00 PM CDT Office Visit [facility] - Orthopedic Surgery [facility] [place] [address] Larry Alexander MD [address] [place] [address] documented as of this encounter Goals Goal [...] CARDIAC RHYTHM STRIP ORDER 05/07/2019 6:01 PM SURVEY STATISTICIAN CBC W AUTO DIFFERENTIAL AM Draw 05/06/2019 2:31 AM SURVEY STATISTICIAN BASIC METABOLIC PANEL (CALCIUM TOTAL) AM Draw 05/06/2019 2:31 AM SURVEY STATISTICIAN PLATELET COUNT AUTO AM Draw 05/05/2019 2 :15 AM SURVEY STATISTICIAN BASIC METABOLIC PANEL (CALCIUM TOTAL) AM Draw 05/05/2019 2:15 AM SURVEY STATISTICIAN BASIC METABOLIC PANEL (CALCIUM TOTAL) AM Draw 05/04/2019 3:07 AM SURVEY STATISTICIAN VANCOMYCIN LEVEL TROUGH Timed 05/03/2019 1:21 PM SURVEY STATISTICIAN CBC W AUTO DIFFERENTIAL AM Draw 05/03/2019 2:46 AM SURVEY STATISTICIAN BASIC METABOLIC PANEL (CALCIUM TOTAL) AM Draw 05/03/2019 2:46 AM SURVEY STATISTICIAN GLUCOSE - POINT OF CARE Routine 05/02/2019 3:23 PM SURVEY STATISTICIAN CULTURE FLUID+GRAM STAIN STAT 05/02/2019 2:24 PM SURVEY STATISTICIAN Diagnosis unknown CULTURE ANAEROBE STAT 05/02/2019 2:24 PM SURVEY STATISTICIAN Diagnosis unknown PREPARE RBC LEUKOREDUCED UNIT STAT 05/02/2019 2:15 PM SURVEY STATISTICIAN CULTURE FLUID+GRAM STAIN STAT 05/02/2019 2:09 PM SURVEY STATISTICIAN Diagnosis unknown CULTURE ANAEROBE STAT 05/02/2019 2:09 PM SURVEY STATISTICIAN Diagnosis unknown TYPE + SCREEN PANEL STAT 05/02/2019 2 :07 PM SURVEY STATISTICIAN WI NEG PRESS WND TX PER SESS; TOT SURF </= 50 SQ CM 05/02/2019 12:37 PM SURVEY STATISTICIAN Diagnosis unknown Special Needs NO REP NEEDED- 05-01-MAB### 004 ### NEEDS C-ARM WI INCIS/DRAIN PELVIS/HIP,DEEP ABSCESS 05/02/2019 12:37 PM SURVEY STATISTICIAN Diagnosis unknown Special Needs NO REP NEEDED- 05-01-MAB### 004 ### NEEDS C-ARM CBC W AUTO DIFFERENTIAL AM Draw 05/02/2019 4:10 AM SURVEY STATISTICIAN COMPREHENSIVE METABOLIC PANEL AM Draw 05/02/2019 4:10 AM SURVEY STATISTICIAN ECHOCARDIOGRAM 2D WITH DOPPLER Routine 05/01/2019 6:07 PM SURVEY STATISTICIAN 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, subsequent encounter Coronary artery disease without angina pectoris, unspecified vessel or lesion type, unspecified whether torres martinez or transplanted heart Chronic atrial fibrillation (HCC) EKG 12-LEAD Routine 05/01/2019 3:54 PM SURVEY STATISTICIAN 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, subsequent encounter XR CHEST 1VW PORTABLE Routine 05/01/2019 3:41 PM SURVEY STATISTICIAN 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, subsequent encounter Coronary artery disease without angina pectoris, unspecified vessel or lesion type, unspecified whether torres martinez or transplanted heart VANCOMYCIN LEVEL TROUGH Timed 05/01/2019 7:49 AM SURVEY STATISTICIAN CBC W AUTO DIFFERENTIAL AM Draw 05/01/2019 2:44 AM SURVEY STATISTICIAN BASIC METABOLIC PANEL (CALCIUM TOTAL) AM Draw 05/01/2019 2:44 AM SURVEY STATISTICIAN OT EVAL AND TREAT Routine 04/30/2019 5:2 3 PM SURVEY STATISTICIAN PT EVAL AND TREAT Routine 04/30/2019 5:2 3 PM SURVEY STATISTICIAN PT-INR AM Draw 04/30/2019 2:42 AM SURVEY STATISTICIAN CBC W AUTO DIFFERENTIAL AM Draw 04/30/2019 2:42 AM SURVEY STATISTICIAN COMPREHENSIVE METABOLIC PANEL AM Draw 04/30/2019 2:42 AM SURVEY STATISTICIAN CULTURE ABSCESS+GRAM STAIN Routine 04/29/2019 9:41 PM SURVEY STATISTICIAN CULTURE VRE Routine 04/29/2019 9:41 PM SURVEY STATISTICIAN CULTURE MRSA Routine 04/29/2019 9:41 PM SURVEY STATISTICIAN CULTURE BLOOD Timed 04/29/2019 7:09 PM SURVEY STATISTICIAN CULTURE BLOOD Timed 04/29/2019 7:09 PM SURVEY STATISTICIAN CULTURE MRSA Routine 04/29/2019 5:56 PM SURVEY STATISTICIAN XR HIP RIGHT 2VW OR MORE Routine 04/29/2019 12:18 PM SURVEY STATISTICIAN 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 Scanned Document CARDIAC SERVICES ORD ERABLES * (ABNORMAL) BASIC METABOLIC PANEL (CALCIUM TOTAL) (05/06/2019 2:31 AM SURVEY STATISTICIAN) Glucose 88 70 - 105 mg/dL 05/06/2019 3:22 AM SURVEY STATISTICIAN [facility] Sodium 137 136 - 145 mmol/L 05/06/2019 3:22 AM SURVEY STATISTICIAN [facility] Potassium 3.2(L) 3.5 - 4.7 mmol/L 05/06/2019 3:22 AM [facility] Chloride 100 98 - 107 mmol/L 05/06/2019 3:22 AM [facility] CO2 26 23 - 31 mmol/L 05/06/2019 3:22 AM [facility] Calcium 9.2 8.4 - 10.4 mg/dL 05/06/2019 3:22 AM [facility] Anion Gap 11 8 - 16 mmol/L 05/06/2019 3:22 AM [facility] BUN 22 8.4 - 25.7 mg/dL 05/06/2019 3:22 AM [facility] Creatinine 1.15 0.72 - 1.25 mg/dL 05/06/2019 3:22 AM [facility] eGFR by MDRD >60 mL/min/1.7 3m2 05/06/2019 3:22 AM [facility] eGFR by MDRD >60 mL/min/1.7 3m2 05/06/2019 3:22 AM [facility] Blood BLOOD SPECIMEN / Unknown Lab Venipuncture / Unknown 05/06/2019 2:31 AM SURVEY STATISTICIAN 05/06/2019 3:02 AM [facility] Kev Ordonez MD LAB - CHEMISTRY ROYCE KLINE [facility] Organization Address City/State/ZIP Co de Phone Number [facility] [address] [place] [address] * (ABNORMAL) CBC W AUTO DIFFERENTIAL (05/06/2019 2:31 AM [facility]) WBC 6.9 4.4 - 10.7 x10E9/L 05/06/2019 3:09 AM [facility] WBC Corrected 05/06/2019 3:09 AM [facility] RBC 3.82 3.80 - 5.40 x10E12/L 05/06/2019 3:09 AM [facility] Hemoglobin 10.1(L) 12.0 - 17.6 gm/dL 05/06/2019 3:09 AM [facility] Hematocrit 32.6(L) 35.2 - 51.7 % 05/06/2019 3:09 AM [facility] MCV 85.3 80.7 - 98.3 fl 05/06/2019 3:09 AM [facility] MCH 26.4(L) 26.7 - 34.0 pg 05/06/2019 3:09 AM [facility] MCHC 31.0 30.8 - 35.9 gm/dL 05/06/2019 3:09 AM [facility] Platelet Count 176 153 - 416 x10E9/L 05/06/2019 3:09 AM [facility] RDW-CV 15.8(H) 12.1 - 14.9 % 05/06/2019 3:09 AM [facility] MPV 13.6(H) 9.4 - 12.9 fl 05/06/2019 3:09 AM [facility] Neutrophils % 61.5 44.0 - 73.0 % 05/06/2019 3:09 AM [facility] Lymphocytes % 11.9(L) 20.0 - 43.0 % 05/06/2019 3:09 AM [facility] Monocytes % 11.5 5.0 - 13.0 % 05/06/2019 3:09 AM [facility] Eosinophils % 14.1(H) 0.0 - 6.0 % 05/06/2019 3:09 AM [facility] Basophils % 0.6 0.0 - 2.0 % 05/06/2019 3:09 AM [facility] Immature Granulocytes 0.4 0 - 1 % 05/06/2019 3:09 AM [facility] Neutrophil Absolute 4.22 2.01 - 7.14 x10E9/L 05/06/2019 3:09 AM [facility] Lymphocytes Absolute 0.82(L) 1.07 - 3.94 x10E9/L 05/06/2019 3:09 AM [facility] Monocytes Absolute 0.79 0.26 - 1.07 x10E9/L 05/06/2019 3:09 AM [facility] Eosinophils Absolute 0.97(H) 0 - 0.47 x10E9/L 05/06/2019 3:09 AM [facility] Basophils Absolute 0.04 0 - 0.08 x10E9/L 05/06/2019 3:09 AM [facility] Immature Granulocytes Absolute 0.03 0.00 - 0.06 x10E9/L 05/06/2019 3:09 AM [facility] nRBC Auto 0 /100 WBC 05/06/2019 3:09 AM [facility] Blood BLOOD SPECIMEN / Unknown Lab Venipuncture / Unknown 05/06/2019 2:31 AM SURVEY STATISTICIAN 05/06/2019 3:02 AM SURVEY STATISTICIAN Kev Ordonez MD LAB - HEMATOLOGY ORD ERABLES Performing Organization Address City/[facility] [address]/[facility] Co de Phone Number [facility] [address] [place] [address] * (ABNORMAL) BASIC METABOLIC PANEL (CALCIUM TOTAL) (05/05/2019 2:15 AM SURVEY STATISTICIAN) Glucose 98 70 - 105 mg/dL 05/05/2019 3:13 AM [facility] Sodium 137 136 - 145 mmol/L 05/05/2019 3:13 AM [facility] Potassium 3.1(L) 3.5 - 4.7 mmol/L 05/05/2019 3:13 AM [facility] Chloride 102 98 - 107 mmol/L 05/05/2019 3:13 AM [facility] CO2 25 23 - 31 mmol/L 05/05/2019 3:13 AM [facility] Calcium 9.1 8.4 - 10.4 mg/dL 05/05/2019 3:13 AM [facility] Anion Gap 10 8 - 16 mmol/L 05/05/2019 3:13 AM [facility] BUN 20 8.4 - 25.7 mg/dL 05/05/2019 3:13 AM [facility] Creatinine 0.96 0.72 - 1.25 mg/dL 05/05/2019 3:13 AM [facility] eGFR by MDRD >60 mL/min/1.7 3m2 05/05/2019 3:13 AM [facility] eGFR by MDRD >60 mL/min/1.7 3m2 05/05/2019 3:13 AM [facility] Blood BLOOD SPECIMEN / Unknown Lab Venipuncture / Unknown 05/05/2019 2:15 AM SURVEY STATISTICIAN 05/05/2019 2:39 AM SURVEY STATISTICIAN Michelle Pratt MD LAB - CHEMISTRY ORD ERABLES Performing Organization Address City/[facility] [address]/ZIP Co de Phone Number [facility] [address] [place] [address] * PLATELET COUNT AUTO (05/05/2019 2:15 AM SURVEY STATISTICIAN) Platelet Count 157 153 - 416 x10E9/L 05/05/2019 3:03 AM [facility] Blood BLOOD SPECIMEN / Unknown Lab Venipuncture / Unknown 05/05/2019 2:15 AM SURVEY STATISTICIAN 05/05/2019 2:38 AM SURVEY STATISTICIAN Michelle Pratt MD LAB - HEMATOLOGY OR DERABLES [facility] [address] [place] [address] * (ABNORMAL) BASIC METABOLIC PANEL (CALCIUM TOTAL) (05/04/2019 3:07 AM SURVEY STATISTICIAN) Pathologist [facility] Glucose 107(H) 70 - 105 mg/dL 05/04/2019 3:52 AM [facility] Sodium 135(L) 136 - 145 mmol/L 05/04/2019 3:52 AM [facility] Potassium 3.2(L) 3.5 - 4.7 mmol/L 05/04/2019 3:52 AM [facility] Chloride 100 98 - 107 mmol/L 05/04/2019 3:52 AM [facility] CO2 27 23 - 31 mmol/L 05/04/2019 3:52 AM [facility] Calcium 9.1 8.4 - 10.4 mg/dL 05/04/2019 3:52 AM [facility] Anion Gap 8 8 - 16 mmol/L 05/04/2019 3:52 AM [facility] BUN 19 8.4 - 25.7 mg/dL 05/04/2019 3:52 AM [facility] Creatinine 1.12 0.72 - 1.25 mg/dL 05/04/2019 3:52 AM [facility] eGFR by MDRD >60 mL/min/1.7 3m2 05/04/2019 3:52 AM [facility] eGFR by MDRD >60 mL/min/1.7 3m2 05/04/2019 3:52 AM [facility] Blood BLOOD SPECIMEN / Unknown Lab Venipuncture / Unknown 05/04/2019 3:07 AM SURVEY STATISTICIAN 05/04/2019 3:19 AM SURVEY STATISTICIAN Michelle Pratt MD LAB - CHEMISTRY ORD SP Performing Organization Address [facility] [address]/ZIP Co de Phone Number [facility] [address] [place] [address] * (ABNORMAL) VANCOMYCIN LEVEL TROUGH (05/03/2019 1:21 PM SURVEY STATISTICIAN) Pathologist [facility] Vancomycin Trough 22.9(H) 10.0 - 20.0 ug/mL 05/03/2019 2:04 PM SURVEY STATISTICIAN [facility] Blood BLOOD SPECIMEN / Unknown Lab Venipuncture / Unknown 05/03/2019 1:21 PM SURVEY STATISTICIAN 05/03/2019 1:40 PM SURVEY STATISTICIAN Raysa Nevarez MD LAB - CHEMISTRY ROYCE KLINE Performing Organization Address [facility] Co de Phone Number [facility] [address] [place] [id number] * (ABNORMAL) CBC W AUTO DIFFERENTIAL (05/03/2019 2:46 AM SURVEY STATISTICIAN) [facility] WBC 9.6 4.4 - 10.7 x10E9/L 05/03/2019 3:46 AM [facility] WBC Corrected 05/03/2019 3:46 AM [facility] RBC 4.22 3.80 - 5.40 x10E12/L 05/03/2019 3:46 AM [facility] Hemoglobin 11.2(L) 12.0 - 17.6 gm/dL 05/03/2019 3:46 AM SURVEY STATISTICIAN [facility] Hematocrit 38.1 35.2 - 51.7 % 05/03/2019 3:46 AM [facility] MCV 90.3 80.7 - 98.3 fl 05/03/2019 3:46 AM [facility] MCH 26.5(L) 26.7 - 34.0 pg 05/03/2019 3:46 AM [facility] MCHC 29.4(L) 30.8 - 35.9 gm/dL 05/03/2019 3:46 AM [facility] Platelet Count 138(L) 153 - 416 x10E9/L 05/03/2019 3:46 AM [facility] RDW-CV 16.0(H) 12.1 - 14.9 % 05/03/2019 3:46 AM [facility] MPV 13.6(H) 9.4 - 12.9 fl 05/03/2019 3:46 AM [facility] Neutrophils % 73.5(H) 44.0 - 73.0 % 05/03/2019 3:46 AM [facility] Lymphocytes % 6.1(L) 20.0 - 43.0 % 05/03/2019 3:46 AM [facility] Monocytes % 9.9 5.0 - 13.0 % 05/03/2019 3:46 AM [facility] Eosinophils % 9.5(H) 0.0 - 6.0 % 05/03/2019 3:46 AM [facility] Basophils % 0.6 0.0 - 2.0 % 05/03/2019 3:46 AM [facility] Immature Granulocytes 0.4 0 - 1 % 05/03/2019 3:46 AM [facility] Neutrophil Absolute 7.04 2.01 - 7.14 x10E9/L 05/03/2019 3:46 AM [facility] Lymphocytes Absolute 0.58(L) 1.07 - 3.94 x10E9/L 05/03/2019 3:46 AM [facility] Monocytes Absolute 0.95 0.26 - 1.07 x10E9/L 05/03/2019 3:46 AM [facility] Eosinophils Absolute 0.91(H) 0 - 0.47 x10E9/L 05/03/2019 3:46 AM [facility] Basophils Absolute 0.06 0 - 0.08 x10E9/L 05/03/2019 3:46 AM [facility] Immature Granulocytes Absolute 0.04 0.00 - 0.06 x10E9/L 05/03/2019 3:46 AM [facility] nRBC Auto 0 /100 WBC 05/03/2019 3:46 AM [facility] Blood BLOOD SPECIMEN / Unknown Lab Venipuncture / Unknown 05/03/2019 2:46 AM SURVEY STATISTICIAN 05/03/2019 3:36 AM SURVEY STATISTICIAN Kev W Ordonez MD LAB - HEMATOLOGY ORD SP [facility] [address] [place] [address] * BASIC METABOLIC PANEL (CALCIUM TOTAL) (05/03/2019 2:46 AM SURVEY STATISTICIAN) Glucose 86 70 - 105 mg/dL 05/03/2019 4:05 AM [facility] Sodium 140 136 - 145 mmol/L 05/03/2019 4:05 AM [facility] Potassium 4.2 3.5 - 4.7 mmol/L 05/03/2019 4:05 AM [facility] Chloride 104 98 - 107 mmol/L 05/03/2019 4:05 AM [facility] CO2 24 23 - 31 mmol/L 05/03/2019 4:05 AM [facility] Calcium 9.4 8.4 - 10.4 mg/dL 05/03/2019 4:05 AM [facility] Anion Gap 12 8 - 16 mmol/L 05/03/2019 4:05 AM [facility] BUN 16 8.4 - 25.7 mg/dL 05/03/2019 4:05 AM [facility] Creatinine 1.04 0.72 - 1.25 mg/dL 05/03/2019 4:05 AM [facility] eGFR by MDRD >60 mL/min/1.7 3m2 05/03/2019 4:05 AM [facility] eGFR by MDRD >60 mL/min/1.7 3m2 05/03/2019 4:05 AM [facility] Blood BLOOD SPECIMEN / Unknown Lab Venipuncture / Unknown 05/03/2019 2:46 AM SURVEY STATISTICIAN 05/03/2019 3:37 AM SURVEY STATISTICIAN Kev Ordnoez MD LAB - CHEMISTRY ROYCE KLINE [facility] [address] [place] [address] * GLUCOSE - POINT OF CARE (05/02/2019 3:23 PM SURVEY STATISTICIAN) Glucose WB/POC 101 70 - 106 mg/dL 05/02/2019 6:02 PM SURVEY STATISTICIAN [facility] Specimen Type Arterial/C apillary 05/02/2019 6:02 PM SURVEY STATISTICIAN [facility] Blood BLOOD SPECIMEN / Unknown 05/02/2019 3:23 PM SURVEY STATISTICIAN 05/02/2019 6:02 PM SURVEY STATISTICIAN Kev Ordonez MD LAB - POINT OF CARE ORDERABLES [facility] [address] [place] [address] * CULTURE FLUID+GRAM STAIN (05/02/2019 2:24 PM SURVEY STATISTICIAN) Culture No growth UMESH 05/09/2019 6:44 AM SURVEY STATISTICIAN [facility] Gram Stain Rare Polymorphonuclear cells 05/09/2019 6:44 AM [facility] STATISTICIAN [facility] Gram Stain No organisms seen 019 6:44 AM SURVEY STATISTICIAN [facility] Fluid BODY FLUID SPECIMEN / Unknown Collection / Unknown 05/02/2019 2:24 PM SURVEY STATISTICIAN 05/02/2019 3:22 PM SURVEY STATISTICIAN Comment:Pre-op diagnosis: Diagnosis unknown [R69] Narrative [facility] - 05/09/2019 6:44 AM SURVEY STATISTICIAN Surgical Description: Post Irrigation Right Hip Fluid Larry Alexander MD LAB - MICROBIOLOGY ORDERABLES Performing Organization Address [facility] [address]/[facility] Co de Phone Number [facility] [address] [place], [place] [address] [phone] * CULTURE ANAEROBE (05/02/2019 2:24 PM SURVEY STATISTICIAN) Culture No anaerobic organisms isolated UMESH 05/07/2019 12:40 PM SURVEY STATISTICIAN [facility] Fluid BODY FLUID SPECIMEN / Unknown Collection / Unknown 05/02/2019 2:24 PM SURVEY STATISTICIAN 05/02/2019 3:22 PM SURVEY STATISTICIAN Comment:Pre-op diagnosis: Diagnosis unknown [R69] Narrative [facility] - 05/07/2019 12:40 PM SURVEY STATISTICIAN Surgical Description: Post Irrigation Right Hip Fluid Larry Alexander MD LAB - MICROBIOLOGY ORDERABLES [facility] [address] [phone] * PREPARE (CROSSMATCH) RBC UNIT(S), 2 Units (05/02/2019 2:15 PM SURVEY STATISTICIAN) Product Code [id number] [facility] Unit Donor # [id number] S [facility] ABO Donor Type A [facility] Rh [facility] Unit POS [facility] Unit Status Ret'd [facility] ABO Rh Type Unit APOS [facility] Donor Unit Expiration Date [facility] Blood Type Barcode 6200 [facility] Product Code [id number] [facility] Donor # [id number] S [facility] ABO Donor Type A [facility] Rh Type Unit POS [facility] Unit Status Ret'd [facility] ABO Rh Type Unit APOS [facility] Donor Unit Expiration Date [facility] Blood Type Barcode 6200 [facility] Blood Bank BLOOD SPECIMEN / Unknown 05/02/2019 2:15 PM SURVEY STATISTICIAN Larry Alexander MD LAB - BLOOD BANK OR DERABLES Performing Organization Address [facility]/State/ZIP Co de Phone Number [facility] [address] [place] [address], [facility] [phone] * CULTURE FLUID+GRAM STAIN (05/02/2019 2:09 PM SURVEY STATISTICIAN) Culture No growth UMESH 05/09/2019 6:44 AM SURVEY STATISTICIAN [facility] Gram Stain No organisms seen 019 6:44 AM [facility] Gram Stain Light Polymorphonuclear cells 05/09/2019 6:44 AM [facility] Fluid BODY FLUID SPECIMEN / Unknown Collection / Unknown 05/02/2019 2:09 PM SURVEY STATISTICIAN 05/02/2019 2:40 PM SURVEY STATISTICIAN Comment:Pre-op diagnosis: Diagnosis unknown [R69] Narrative [facility] - 05/09/2019 6:44 AM SURVEY STATISTICIAN Surgical Description: Right Hip Fluid Larry Alexander MD LAB - MICROBIOLOGY ORDERABLES Performing Organization Address City/[facility] [address]/ZIP Co de Phone Number [facility] [address] [place] [phone] * CULTURE ANAEROBE (05/02/2019 2:09 PM SURVEY STATISTICIAN) Culture No anaerobic organisms isolated UMESH 05/07/2019 12:42 PM SURVEY STATISTICIAN [facility] Fluid BODY FLUID SPECIMEN / Unknown Collection / Unknown 05/02/2019 2:09 PM SURVEY STATISTICIAN 05/02/2019 2:40 PM SURVEY STATISTICIAN Comment:Pre-op diagnosis: Diagnosis unknown [R69] Narrative [facility] - 05/07/2019 12:42 PM SURVEY STATISTICIAN Surgical Description: Right Hip Fluid Larry Alexander MD LAB - MICROBIOLOGY ORDERABLES Performing Organization Address [facility] Co de Phone Number [facility] [address] [place] [phone] * TYPE + SCREEN PANEL (05/02/2019 2:07 PM SURVEY STATISTICIAN) ABO A 05/02/2019 2:34 PM SURVEY STATISTICIAN [facility] Rh Type Positive 05/02/2019 2:34 PM SURVEY STATISTICIAN [facility] Comment:History checked. Antibody Screen Negative 05/02/2019 2:34 PM SURVEY STATISTICIAN [facility] Blood Bank BLOOD SPECIMEN / Unknown Venipuncture / Unknown 05/02/2019 2:07 PM SURVEY STATISTICIAN 05/02/2019 2:07 PM SURVEY STATISTICIAN Larry Alexander MD LAB - BLOOD BANK OR DERABLES Performing Organization Address City/[facility] [address]/ZIP Co de Phone Number [facility] [address] [place] [address], [facility] [phone] * (ABNORMAL) COMPREHENSIVE METABOLIC PANEL (05/02/2019 4:10 AM SURVEY STATISTICIAN) Glucose 98 70 - 105 mg/dL 05/02/2019 6:02 AM SURVEY STATISTICIAN [facility] Sodium 138 136 - 145 mmol/L 05/02/2019 6:02 AM SURVEY STATISTICIAN [facility] Potassium 3.6 3.5 - 4.7 mmol/L 05/02/2019 6:02 AM [facility] Chloride 102 98 - 107 mmol/L 05/02/2019 6:02 AM [facility] CO2 27 23 - 31 mmol/L 05/02/2019 6:02 AM [facility] Calcium 9.4 8.4 - 10.4 mg/dL 05/02/2019 6:02 AM [facility] Anion Gap 9 8 - 16 mmol/L 05/02/2019 6:02 AM [facility] BUN 20 8.4 - 25.7 mg/dL 05/02/2019 6:02 AM [facility] Creatinine 1.13 0.72 - 1.25 mg/dL 05/02/2019 6:02 AM [facility] Alkaline Phosphatase 211(H) 40 - 150 U/L 05/02/2019 6:02 AM [facility] ALT 26 0 - 61 U/L 05/02/2019 6:02 AM [facility] AST 25 5 - 34 U/L 05/02/2019 6:02 AM [facility] Protein Total 7.3 6.4 - 8.3 gm/dL 05/02/2019 6:02 AM [facility] Albumin 3.6 3.2 - 4.6 gm/dL 05/02/2019 6:02 AM [facility] Bilirubin Total 1.1 0.2 - 1.2 mg/dL 05/02/2019 6:02 AM [facility] eGFR by MDRD >60 mL/min/1.7 3m2 05/02/2019 6:02 AM [facility] eGFR by MDRD >60 mL/min/1.7 3m2 05/02/2019 6:02 AM [facility] Blood BLOOD SPECIMEN / Unknown Lab Venipuncture / Unknown 05/02/2019 4:10 AM SURVEY STATISTICIAN 05/02/2019 4:52 AM [facility] Kev Ordonez MD LAB - CHEMISTRY ROYCE KLINE [facility] Organization Address City/State/ZIP Co de Phone Number [facility] [address] [place], [place] [id number] * (ABNORMAL) CBC W AUTO DIFFERENTIAL (05/02/2019 4:10 AM [facility]) WBC 6.6 4.4 - 10.7 x10E9/L 05/02/2019 5:01 AM [facility] WBC Corrected 05/02/2019 5:01 AM [facility] RBC 4.12 3.80 - 5.40 x10E12/L 05/02/2019 5:01 AM [facility] Hemoglobin 10.8(L) 12.0 - 17.6 gm/dL 05/02/2019 5:01 AM [facility] Hematocrit 36.7 35.2 - 51.7 % 05/02/2019 5:01 AM [facility] MCV 89.1 80.7 - 98.3 fl 05/02/2019 5:01 AM [facility] MCH 26.2(L) 26.7 - 34.0 pg 05/02/2019 5:01 AM [facility] MCHC 29.4(L) 30.8 - 35.9 gm/dL 05/02/2019 5:01 AM [facility] Platelet Count 143(L) 153 - 416 x10E9/L 05/02/2019 5:01 AM [facility] RDW-CV 15.9(H) 12.1 - 14.9 % 05/02/2019 5:01 AM [facility] MPV 12.7 9.4 - 12.9 fl 05/02/2019 5:01 AM [facility] Neutrophils % 63.3 44.0 - 73.0 % 05/02/2019 5:01 AM [facility] Lymphocytes % 10.1(L) 20.0 - 43.0 % 05/02/2019 5:01 AM [facility] Monocytes % 11.3 5.0 - 13.0 % 05/02/2019 5:01 AM [facility] Eosinophils % 14.0(H) 0.0 - 6.0 % 05/02/2019 5:01 AM [facility] Basophils % 0.8 0.0 - 2.0 % 05/02/2019 5:01 AM [facility] Immature Granulocytes 0.5 0 - 1 % 05/02/2019 5:01 AM [facility] Neutrophil Absolute 4.16 2.01 - 7.14 x10E9/L 05/02/2019 5:01 AM [facility] Lymphocytes Absolute 0.66(L) 1.07 - 3.94 x10E9/L 05/02/2019 5:01 AM [facility] Monocytes Absolute 0.74 0.26 - 1.07 x10E9/L 05/02/2019 5:01 AM [facility] Eosinophils Absolute 0.92(H) 0 - 0.47 x10E9/L 05/02/2019 5:01 AM [facility] Basophils Absolute 0.05 0 - 0.08 x10E9/L 05/02/2019 5:01 AM [facility] Immature Granulocytes Absolute 0.03 0.00 - 0.06 x10E9/L 05/02/2019 5:01 AM [facility] nRBC Auto 0 /100 WBC 05/02/2019 5:01 AM [facility] Blood BLOOD SPECIMEN / Unknown Lab Venipuncture / Unknown 05/02/2019 4:10 AM SURVEY STATISTICIAN 05/02/2019 4:52 AM SURVEY STATISTICIAN Kev Ordonez MD LAB - HEMATOLOGY ORD ERABLES [facility] [address] [place] [id number] * ECHOCARDIOGRAM 2D WITH DOPPLER (05/01/2019 6:07 PM SURVEY STATISTICIAN) 05/01/2019 6:07 PM SURVEY STATISTICIAN Narrative [facility] - 05/02/2019 9:34 AM [facility] [address] [place] [id number] Transthoracic Echocardiogram 2D, M-mode, Doppler, and Color Doppler Patient: JOSÉ MIGUEL KEYS MR number: [id number] Height: 71 in Weight: 219.6 lb BSA: 2.2 m?? Study date: 01-May-2019 : 1950 Age: 68 years Gender: Male Race: Allergies: PENICILLINS, LEVOFLOXACIN, SCOPOLAMINE Cookie Mixer Helper: ??Gómez Finch Referring Physician: ??Kev Ordonez MD [...] Procedure Note Constantino Sims MD - 05/02/2019 [place] [address] Transthoracic Echocardiogram 2D, M-mode, Doppler, and Color Doppler Patient: JOSÉ MIGUEL KEYS MR number: [id number] Height: 71 in Weight: 219.6 lb BSA: 2.2 m?? Study date: 01-May-2019 : 1950 Age: 68 years Gender: Male Race: Allergies: PENICILLINS, LEVOFLOXACIN, SCOPOLAMINE Cookie Mixer Helper: Gómez Finch Referring Physician: Kev Ordonez MD [...] Ordonez MD ECHO ORDERABLES Performing Organization Address [facility] [address]/[facility] de Phone Number [facility] [address] [place] [address] * EKG 12-LEAD (05/01/2019 3:54 PM SURVEY STATISTICIAN) [facility] Ventricular Rate 82 BPM [facility] Atrial Rate 312 BPM [facility] QRS Duration ms 90 ms [facility] Q-T Interval ms 380 ms [facility] QTC Calculation (Bezet) 443 ms [facility] Calculated R Furman -9 degrees [facility] Calculated T Furman 42 degrees [facility] Interpretation EKG ATRIAL FIBRILLATION WITH PREMATURE VENTRICULAR OR ABERRANTLY CONDUCTED COMPLEXES ABNORMAL ECG Confirmed by MD Jane, Zhang ([id number]) on 05/02/2019 8:32:37 AM [facility] 05/01/2019 3:54 PM SURVEY STATISTICIAN 05/02/2019 8:32 AM SURVEY STATISTICIAN Kev Ordonez MD ECG ORDERABLES Performing Organization Address [facility] [address]/[facility] Co de Phone Number [facility] * XR CHEST 1VW PORTABLE (05/01/2019 3:41 PM SURVEY STATISTICIAN) Anatomical Region Laterality Modality Chest Radiographic Shama ging 05/01/2019 3:49 PM SURVEY STATISTICIAN Narrative 05/01/2019 3:50 PM SURVEY STATISTICIAN Chest one view 1525 hours HISTORY: Infected [...] (ABNORMAL) VANCOMYCIN LEVEL TROUGH (05/01/2019 7:49 AM SURVEY STATISTICIAN) Pathologist [facility] Vancomycin Trough 8.1(L) 10.0 - 20.0 ug/mL 05/01/2019 8:41 AM [facility] Blood BLOOD SPECIMEN / Unknown Lab Venipuncture / Unknown 05/01/2019 7:49 AM SURVEY STATISTICIAN 05/01/2019 8:12 AM SURVEY STATISTICIAN Armida Gomez MD LAB - CHEMISTRY ROYCE [facility] Organization Address City/State/ZIP Co de Phone Number [facility] [address] [place] [address] * BASIC METABOLIC PANEL (CALCIUM TOTAL) (05/01/2019 2:44 AM SURVEY STATISTICIAN) Pathologist [facility] Glucose 89 70 - 105 mg/dL 05/01/2019 4:30 AM [facility] Sodium 141 136 - 145 mmol/L 05/01/2019 4:30 AM [facility] Potassium 4.7 3.5 - 4.7 mmol/L 05/01/2019 4:30 AM [facility] Chloride 106 98 - 107 mmol/L 05/01/2019 4:30 AM [facility] CO2 26 23 - 31 mmol/L 05/01/2019 4:30 AM [facility] Calcium 9.8 8.4 - 10.4 mg/dL 05/01/2019 4:30 AM [facility] Anion Gap 9 8 - 16 mmol/L 05/01/2019 4:30 AM [facility] BUN 25 8.4 - 25.7 mg/dL 05/01/2019 4:30 AM [facility] Creatinine 1.04 0.72 - 1.25 mg/dL 05/01/2019 4:30 AM [facility] eGFR by MDRD >60 mL/min/1.7 3m2 05/01/2019 4:30 AM [facility] [facility] eGFR by MDRD >60 mL/min/1.7 3m2 05/01/2019 4:30 AM [facility] Blood BLOOD SPECIMEN / Unknown Lab Venipuncture / Unknown 05/01/2019 2:44 AM SURVEY STATISTICIAN 05/01/2019 3:34 AM SURVEY STATISTICIAN Kev Ordonez MD LAB - CHEMISTRY ROYCE KLINE [facility] [address], [place] [id number] * (ABNORMAL) CBC W AUTO DIFFERENTIAL (05/01/2019 2:44 AM SURVEY STATISTICIAN) WBC 7.2 4.4 - 10.7 x10E9/L 05/01/2019 3:58 AM [facility] WBC Corrected 05/01/2019 3:58 AM [facility] RBC 3.98 3.80 - 5.40 x10E12/L 05/01/2019 3:58 AM [facility] Hemoglobin 10.6(L) 12.0 - 17.6 gm/dL 05/01/2019 3:58 AM [facility] Hematocrit 35.6 35.2 - 51.7 % 05/01/2019 3:58 AM [facility] MCV 89.4 80.7 - 98.3 fl 05/01/2019 3:58 AM [facility] MCH 26.6(L) 26.7 - 34.0 pg 05/01/2019 3:58 AM [facility] MCHC 29.8(L) 30.8 - 35.9 gm/dL 05/01/2019 3:58 AM [facility] Platelet Count 148(L) 153 - 416 x10E9/L 05/01/2019 3:58 AM [facility] RDW-CV 15.9(H) 12.1 - 14.9 % 05/01/2019 3:58 AM [facility] MPV 13.7(H) 9.4 - 12.9 fl 05/01/2019 3:58 AM [facility] Neutrophils % 62.7 44.0 - 73.0 % 05/01/2019 3:58 AM [facility] Lymphocytes % 11.7(L) 20.0 - 43.0 % 05/01/2019 3:58 AM [facility] Monocytes % 11.7 5.0 - 13.0 % 05/01/2019 3:58 AM [facility] Eosinophils % 12.8(H) 0.0 - 6.0 % 05/01/2019 3:58 AM [facility] Basophils % 0.8 0.0 - 2.0 % 05/01/2019 3:58 AM [facility] Immature Granulocytes 0.3 0 - 1 % 05/01/2019 3:58 AM [facility] Neutrophil Absolute 4.53 2.01 - 7.14 x10E9/L 05/01/2019 3:58 AM [facility] Lymphocytes Absolute 0.84(L) 1.07 - 3.94 x10E9/L 05/01/2019 3:58 AM [facility] Monocytes Absolute 0.84 0.26 - 1.07 x10E9/L 05/01/2019 3:58 AM [facility] Eosinophils Absolute 0.92(H) 0 - 0.47 x10E9/L 05/01/2019 3:58 AM [facility] Basophils Absolute 0.06 0 - 0.08 x10E9/L 05/01/2019 3:58 AM [facility] Immature Granulocytes Absolute 0.02 0.00 - 0.06 x10E9/L 05/01/2019 3:58 AM [facility] nRBC Auto 0 /100 WBC 05/01/2019 3:58 AM [facility] Blood BLOOD SPECIMEN / Unknown Lab Venipuncture / Unknown 05/01/2019 2:44 AM SURVEY STATISTICIAN 05/01/2019 3:34 AM SURVEY STATISTICIAN Kev Ordonez MD LAB - HEMATOLOGY ORD ERABLES [facility] [address] [place] [address] * PT-INR (04/30/2019 2:42 AM [facility]) PT 13.9 12.1 - 14.8 sec 04/30/2019 3:40 AM [facility] INR 1.1 0.9 - 1.1 04/30/2019 3:40 AM [facility] Blood BLOOD SPECIMEN / Unknown Lab Venipuncture / Unknown 04/30/2019 2:42 AM SURVEY STATISTICIAN 04/30/2019 3:13 AM [facility] Narrative [facility] - 04/30/2019 3:40 AM [facility] Conventional Warfarin Anticoagulant Therapy: INR Reference Range: ??2.0-3.0 Intensive Warfarin Anticoagulant Therapy: INR Reference Range: ? 2.5-3.5 Yasmany Oh MD LAB - COAGULATION OR DERABLES [facility] [address] [place] [id number] * (ABNORMAL) COMPREHENSIVE METABOLIC PANEL (04/30/2019 2:42 AM [facility]) Pathologist [facility] Glucose 101 70 - 105 mg/dL 04/30/2019 3:47 AM [facility] Sodium 138 136 - 145 mmol/L 04/30/2019 3:47 AM [facility] Potassium 3.4(L) 3.5 - 4.7 mmol/L 04/30/2019 3:47 AM [facility] Chloride 105 98 - 107 mmol/L 04/30/2019 3:47 AM [facility] CO2 26 23 - 31 mmol/L 04/30/2019 3:47 AM [facility] Calcium 9.5 8.4 - 10.4 mg/dL 04/30/2019 3:47 AM [facility] Anion Gap 7(L) 8 - 16 mmol/L 04/30/2019 3:47 AM [facility] BUN 24 8.4 - 25.7 mg/dL 04/30/2019 3:47 AM [facility] Creatinine 1.00 0.72 - 1.25 mg/dL 04/30/2019 3:47 AM [facility] Alkaline Phosphatase 188(H) 40 - 150 U/L 04/30/2019 3:47 AM SURVEY STATISTICIAN [facility] ALT 27 0 - 61 U/L 04/30/2019 3:47 AM SURVEY STATISTICIAN [facility] AST 30 5 - 34 U/L 04/30/2019 3:47 AM SURVEY STATISTICIAN [facility] Protein Total 6.9 6.4 - 8.3 gm/dL 04/30/2019 3:47 AM SURVEY STATISTICIAN [facility] Albumin 3.5 3.2 - 4.6 gm/dL 04/30/2019 3:47 AM [facility] Bilirubin Total 0.5 0.2 - 1.2 mg/dL 04/30/2019 3:47 AM SURVEY STATISTICIAN [facility] eGFR by MDRD >60 mL/min/1.7 3m2 04/30/2019 3:47 AM SURVEY STATISTICIAN [facility] eGFR by MDRD >60 mL/min/1.7 3m2 04/30/2019 3:47 AM [facility] Blood BLOOD SPECIMEN / Unknown Lab Capillary / Unknown 04/30/2019 2:42 AM SURVEY STATISTICIAN 04/30/2019 3:13 AM SURVEY STATISTICIAN Yasmany Oh MD LAB - CHEMISTRY ROYCE [facility] Organization Address City/State/ZIP Co de Phone Number [facility] [address], [place] [id number] * (ABNORMAL) CBC W AUTO DIFFERENTIAL (04/30/2019 2:42 AM SURVEY STATISTICIAN) WBC 7.9 4.4 - 10.7 x10E9/L 04/30/2019 3:24 AM [facility] WBC Corrected 04/30/2019 3:24 AM [facility] RBC 4.01 3.80 - 5.40 x10E12/L 04/30/2019 3:24 AM [facility] Hemoglobin 10.5(L) 12.0 - 17.6 gm/dL 04/30/2019 3:24 AM [facility] Hematocrit 35.3 35.2 - 51.7 % 04/30/2019 3:24 AM [facility] MCV 88.0 80.7 - 98.3 fl 04/30/2019 3:24 AM [facility] MCH 26.2(L) 26.7 - 34.0 pg 04/30/2019 3:24 AM SURVEY STATISTICIAN [facility] MCHC 29.7(L) 30.8 - 35.9 gm/dL 04/30/2019 3:24 AM [facility] Platelet Count 159 153 - 416 x10E9/L 04/30/2019 3:24 AM [facility] RDW-CV 15.9(H) 12.1 - 14.9 % 04/30/2019 3:24 AM [facility] MPV 12.9 9.4 - 12.9 fl 04/30/2019 3:24 AM [facility] Neutrophils % 64.6 44.0 - 73.0 % 04/30/2019 3:24 AM [facility] Lymphocytes % 10.3(L) 20.0 - 43.0 % 04/30/2019 3:24 AM [facility] Monocytes % 10.2 5.0 - 13.0 % 04/30/2019 3:24 AM [facility] Eosinophils % 14.0(H) 0.0 - 6.0 % 04/30/2019 3:24 AM [facility] Basophils % 0.6 0.0 - 2.0 % 04/30/2019 3:24 AM [facility] Immature Granulocytes 0.3 0 - 1 % 04/30/2019 3:24 AM [facility] Neutrophil Absolute 5.09 2.01 - 7.14 x10E9/L 04/30/2019 3:24 AM [facility] Lymphocytes Absolute 0.81(L) 1.07 - 3.94 x10E9/L 04/30/2019 3:24 AM [facility] Monocytes Absolute 0.80 0.26 - 1.07 x10E9/L 04/30/2019 3:24 AM [facility] Eosinophils Absolute 1.10(H) 0 - 0.47 x10E9/L 04/30/2019 3:24 AM [facility] Basophils Absolute 0.05 0 - 0.08 x10E9/L 04/30/2019 3:24 AM [facility] Immature Granulocytes Absolute 0.02 0.00 - 0.06 x10E9/L 04/30/2019 3:24 AM [facility] nRBC Auto 0 /100 WBC 04/30/2019 3:24 AM [facility] Blood BLOOD SPECIMEN / Unknown Lab Venipuncture / Unknown 04/30/2019 2:42 AM SURVEY STATISTICIAN 04/30/2019 3:13 AM SURVEY STATISTICIAN Yasmany Oh MD LAB - HEMATOLOGY ORD ERABLES [facility] [address] [place] [address] * CULTURE ABSCESS+GRAM STAIN (04/29/2019 9:41 PM SURVEY STATISTICIAN) Culture No growth UMESH 05/03/2019 8:32 AM SURVEY STATISTICIAN [facility] Gram Stain Rare Polymorphonuclear cells 05/03/2019 8:32 AM SURVEY STATISTICIAN [facility] Gram Stain No organisms seen 019 8:32 AM [facility] Microbiology ENTIRE HIP REGION / Unknown Collection / Unknown 04/29/2019 9:41 PM SURVEY STATISTICIAN 04/29/2019 11:20 PM SURVEY STATISTICIAN Armida Gomez MD LAB - MICROBIOLOGY O RDSP Performing Organization Address [facility] [address] [facility] Co de Phone Number [facility] [address] [place] [address], [facility] [phone] * (ABNORMAL) CULTURE VRE (04/29/2019 9:41 PM SURVEY STATISTICIAN) Culture Growth of Enterococcus species vancomycin-resis tant (VRE)(A) UMESH 05/01/2019 6:09 AM SURVEY STATISTICIAN [facility] Microbiology ENTIRE RECTUM / Unknown Collection / Unknown 04/29/2019 9:41 PM SURVEY STATISTICIAN 04/29/2019 11:20 PM SURVEY STATISTICIAN Narrative [facility] - 05/01/2019 6:09 AM SURVEY STATISTICIAN For vancomycin-resistant enterococci (VRE), contact precautions are required. For any questions, call Infection Prevention. Yasmany Oh MD LAB - MICROBIOLOGY O RDSP [facility] [address] [place] [address], [facility] [phone] * CULTURE MRSA (04/29/2019 9:41 PM SURVEY STATISTICIAN) Culture Negative for methicillin-resist ant Staphylococcus aureus (MRSA) UMESH 05/01/2019 5:24 AM SURVEY STATISTICIAN [facility] Microbiology ENTIRE RECTUM / Unknown Collection / Unknown 04/29/2019 9:41 PM SURVEY STATISTICIAN 04/29/2019 11:20 PM SURVEY STATISTICIAN Yasmany Oh MD LAB - MICROBIOLOGY O RDPS Performing Organization Address City/[facility] [address]/ZIP Co de Phone Number [facility] [address] [place] [address], [facility] [phone] * CULTURE BLOOD (04/29/2019 7:09 PM SURVEY STATISTICIAN) Culture No growth day 5 UMESH 05/04/2019 10:00 PM SURVEY STATISTICIAN [facility] Blood PERIPHERAL BLOOD / Unknown Lab Venipuncture / Unknown 04/29/2019 7:09 PM SURVEY STATISTICIAN 04/29/2019 7:18 PM SURVEY STATISTICIAN Armida Gomez MD LAB - MICROBIOLOGY O RIO Performing Organization Address [facility] [address] [facility]/ZIP Co de Phone Number [facility] [address] [place] [address], [facility] [phone] * CULTURE BLOOD (04/29/2019 7:09 PM SURVEY STATISTICIAN) Culture No growth day 5 UMESH 05/04/2019 10:00 PM SURVEY STATISTICIAN [facility] Blood PERIPHERAL BLOOD / Unknown Lab Venipuncture / Unknown 04/29/2019 7:09 PM SURVEY STATISTICIAN 04/29/2019 7:18 PM SURVEY STATISTICIAN Armida Gomez MD LAB - MICROBIOLOGY O RDSP Performing Organization Address City/[facility] [address] [facility]/ZIP Co de Phone Number [facility] [address] [place] [address], [facility] [phone] * (ABNORMAL) CULTURE MRSA (04/29/2019 5:56 PM SURVEY STATISTICIAN) Culture Growth of Staphylococcus aureus methicillin-resist ant (MRSA)(A) UMESH 05/01/2019 5:19 AM SURVEY STATISTICIAN [facility] Microbiology SPECIMEN FROM NASAL FOSSAE / Unknown Collection / Unknown 04/29/2019 5:56 PM SURVEY STATISTICIAN 04/29/2019 5:56 PM SURVEY STATISTICIAN Narrative [facility] - 05/01/2019 5:19 AM SURVEY STATISTICIAN Methicillin-resistant Staphylococci (MRSA) are resistant to all currently available beta-lactam antibiotics with the exception of the newer cephalosporins with anti-MRSA activity. Contact precautions required. Yasmany Oh MD LAB - MICROBIOLOGY O RDERABLES [facility] [address] [place] [address], [facility] [phone] * XR HIP RIGHT 2VW OR MORE (04/29/2019 12:18 PM SURVEY STATISTICIAN) Anatomical Region Laterality Modality Pelvis, Lower Extremity Radiogra phic Imaging 04/29/2019 12:3 8 PM SURVEY STATISTICIAN Impressions 04/29/2019 12:57 PM SURVEY STATISTICIAN Satisfactory postop appearance. Edited by Alaina Alvarado on 04/29/2019 12:44 PM Reading Radiologist: Ash Bill MD on 04/29/2019 at 12:57 PM Narrative 04/29/2019 12:57 PM SURVEY STATISTICIAN RIGHT HIP. HISTORY: Pain. Views of the [...] Alvarado on 04/29/2019 12:44 PM Reading Radiologist: Ahs Bill MD on 04/29/2019 at 12:57 PM Alberto De Los Santos MD DIAGNOSTIC I MAGING ORDERABLES * (ABNORMAL) BASIC METABOLIC PANEL (CALCIUM TOTAL) (04/29/2019 6:44 AM SURVEY STATISTICIAN) Glucose 102 70 - 105 mg/dL 04/29/2019 7:10 AM SURVEY STATISTICIAN [facility] Sodium 140 136 - 145 mmol/L 04/29/2019 7:10 AM SURVEY STATISTICIAN [facility] Potassium 3.6 3.5 - 4.7 mmol/L 04/29/2019 7:10 AM [facility] Chloride 107 98 - 107 mmol/L 04/29/2019 7:10 AM [facility] CO2 23 23 - 31 mmol/L 04/29/2019 7:10 AM [facility] Calcium 9.3 8.4 - 10.4 mg/dL 04/29/2019 7:10 AM [facility] Anion Gap 10 8 - 16 mmol/L 04/29/2019 7:10 AM [facility] BUN 30(H) 8.4 - 25.7 mg/dL 04/29/2019 7:10 AM [facility] Creatinine 1.14 0.72 - 1.25 mg/dL 04/29/2019 7:10 AM [facility] eGFR by MDRD >60 mL/min/1.7 3m2 04/29/2019 7:10 AM [facility] eGFR by MDRD >60 mL/min/1.7 3m2 04/29/2019 7:10 AM [facility] Blood BLOOD SPECIMEN / Unknown Lab Venipuncture / Unknown 04/29/2019 6:44 AM SURVEY STATISTICIAN 04/29/2019 6:51 AM SURVEY STATISTICIAN Yasmany Oh MD LAB - CHEMISTRY ROYCE KLINE [facility] [address] [place] [id number] * VANCOMYCIN LEVEL RANDOM (04/29/2019 6:44 AM SURVEY STATISTICIAN) Vancomycin Random 10.5 ug/mL 04/29/2019 7:10 AM [facility] Blood BLOOD SPECIMEN / Unknown Lab Venipuncture / Unknown 04/29/2019 6:44 AM SURVEY STATISTICIAN 04/29/2019 6:51 AM SURVEY STATISTICIAN Narrative [facility] - 04/29/2019 7:10 AM SURVEY STATISTICIAN No reference range available for random Vancomycin levels. All results interpreted by ordering physician. 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, subsequent encounter- Primary Coronary artery disease without angina pectoris, unspecified vessel or lesion type, unspecified whether torres martinez or transplanted heart Chronic atrial fibrillation (HCC) [...] flush $ New Bag/Syringe 05/06/2019 3:55 AM SURVEY STATISTICIAN 250 mL 3 mL/hr $ New Bag/Syringe 05/04/2019 5:17 AM SURVEY STATISTICIAN 250 mL 3 mL/h r $ New Bag/Syringe 05/02/2019 1:16 AM SURVEY STATISTICIAN 250 mL 3 mL/h r 0.9% NaCl infusion ADS Med 1 dose, Starting on Tue04/29/19 at 0914, Until Tue04/29/19 at 0948, Created by cabinet override $ New Bag/Syringe 04/29/2019 9:48 AM SURVEY STATISTICIAN 0.9% NaCl infusion rate and volume at [...] 8 hours. $ Given 05/05/2019 9:21 PM SURVEY STATISTICIAN 3 mL $ Given 05/05/2019 1:20 PM SURVEY STATISTICIAN 3 mL $ Given 05/05/2019 6:20 AM SURVEY STATISTICIAN 3 mL acetaminophen (TYLENOL) tablet 650 mg 650 mg, Oral, EVERY 6 HOURS PRN, Mild Pain, Starting on Tue04/29/19 at 0545, Until Tue05/06/19 at 1523 $ Given 05/05/2019 9:18 PM SURVEY STATISTICIAN 650 mg $ Given 05/04/2019 9:14 AM SURVEY STATISTICIAN 650 mg $ Given 04/29/2019 4:40 PM SURVEY STATISTICIAN 650 mg acetaminophen (TYLENOL) tablet 650 mg 650 mg, Oral, EVERY 4 HOURS PRN, Moderate Pain, Starting on Tue04/29/19 at 0755, Until Kellen 05/03/19 at 1222 $ Given 05/03/2019 9:49 AM SURVEY STATISTICIAN 650 mg $ Given 05/01/2019 9:42 PM SURVEY STATISTICIAN 650 mg $ Given 04/30/2019 8:35 PM SURVEY STATISTICIAN 650 mg albuterol (PROVENTIL;VENTOLIN) (5 MG/ML) 0.5% nebulizer solution 2.5 mg 2.5 mg, Inhalation, 4 TIMES DAILY, First dose on Tue04/29/19 at 0900, Until Discontinued, Dilute prior to administration via nebulization. $ Given 05/06/2019 9:27 AM SURVEY STATISTICIAN 2.5 mg $ Given 05/06/2019 1:27 AM SURVEY STATISTICIAN 2.5 mg $ Given 05/05/2019 7:23 PM SURVEY STATISTICIAN 2.5 mg nxmyjpcq-ojacceztd-agkarwizwll (MAALOX;MYLANTA) suspension 15 mL 15 mL, Oral, EVERY 6 HOURS PRN, Heartburn, Starting on Tue05/04/19 at 1553, Until 05/06/19 at 1523, Shake well before using. $ Given 05/05/2019 9:33 PM SURVEY STATISTICIAN 15 mL $ Given 05/04/2019 9:14 PM SURVEY STATISTICIAN 15 mL $ Given 05/04/2019 6:16 PM SURVEY STATISTICIAN 15 mL apixaban (ELIQUIS) tablet 5 mg 5 mg, Oral, 2 TIMES DAILY, First dose on Tue05/02/19 at 2100, Until Discontinued $ Given 05/06/2019 9:08 AM SURVEY STATISTICIAN 5 mg $ Given 05/05/2019 9:19 PM SURVEY STATISTICIAN 5 mg $ Given 05/05/2019 9:08 AM SURVEY STATISTICIAN 5 mg budesonide-formoterol (SYMBICORT) 160-4.5 MCG/ACT inhaler 2 puff 2 puff, Inhalation, 2 TIMES DAILY, First dose on 04/29/19 at 0900, Until Discontinued, Rinse mouth after usage . WASTE DISPOSAL INSTRUCTION: Send to Pharmacy for Disposal. . $ Given 05/06/2019 9:39 AM SURVEY STATISTICIAN 2 puffs $ Given 05/05/2019 7:25 PM SURVEY STATISTICIAN 2 puffs $ Given 05/05/2019 7:52 AM SURVEY STATISTICIAN 2 puffs bumetanide (BUMEX) tablet 0.5 mg 0.5 mg, Oral, 2 TIMES DAILY, First dose on Tue05/01/19 at 1100, Until Discontinued $ Given 05/06/2019 9:08 AM SURVEY STATISTICIAN 0.5 mg $ Given 05/05/2019 4:37 PM SURVEY STATISTICIAN 0.5 mg $ Given 05/05/2019 9:08 AM SURVEY STATISTICIAN 0.5 mg diphenhydrAMINE (BENADRYL) capsule 25 mg 25 mg, Oral, EVERY 6 HOURS PRN, Itching, Starting on 04/29/19 at 0756, Until 05/06/19 at 1523 $ Given 05/06/2019 12:33 PM SURVEY STATISTICIAN 25 mg $ Given 05/05/2019 9:19 PM SURVEY STATISTICIAN 25 mg $ Given 05/05/2019 9:14 AM SURVEY STATISTICIAN 25 mg diphenhydrAMINE-zinc acetate (BENADRYL EXTRA STRENGTH) 2-0.1 % cream Topical, PRN, Itching, Starting on Tue05/01/19 at 1305, Until 05/06/19 at 1523, Apply to bilateral periorbital areas $ Given 05/02/2019 11:35 AM SURVEY STATISTICIAN $ Given 05/01/2019 9:44 PM SURVEY STATISTICIAN $ Given 05/01/2019 4:53 PM SURVEY STATISTICIAN docusate sodium (COLACE) capsule 100 mg 100 mg, Oral, DAILY, First dose on Tue05/03/19 at 1300, Until Discontinued $ Given 05/06/2019 9:09 AM SURVEY STATISTICIAN 100 mg $ Given 05/05/2019 9:09 AM SURVEY STATISTICIAN 100 mg $ Given 05/04/2019 9:14 AM SURVEY STATISTICIAN 100 mg doxycycline monohydrate capsule 100 mg 100 mg, Oral, EVERY 12 HOURS, First dose on 05/06/19 at 0945, Until Discontinued, Indication for anti-infective therapy: Suspected infection, Site of anti-infective therapy: Skin/soft tissue $ Given 05/06/2019 9:56 AM SURVEY STATISTICIAN 100 mg fentaNYL (PF) (SUBLIMAZE) injection 25 mcg 25 mcg, Intravenous, EVERY 4 HOURS PRN, Severe Pain, Starting on 04/29/19 at 0546, Until 05/06/19 at 1523 $ Given 05/03/2019 5:18 AM SURVEY STATISTICIAN 25 mcg $ Given 05/03/2019 2:03 AM SURVEY STATISTICIAN 25 mcg $ Given 05/02/2019 10:05 PM SURVEY STATISTICIAN 25 mcg fentaNYL (PF) (SUBLIMAZE) injection 50 [...] hypoventilation., PACU $ Given 05/02/2019 3:48 PM SURVEY STATISTICIAN 50 mcg $ Given 05/02/2019 3:38 PM SURVEY STATISTICIAN 50 mcg hydrocortisone (DERMAREST) 1 % lotion Topical, 4 TIMES DAILY PRN, Itching, swelling, Starting on Tue05/02/19 at 0000, Until 05/06/19 at 1523, Apply to bilateral eyelids/periorbital areas. $ Given 05/02/2019 10:05 PM SURVEY STATISTICIAN HYDROmorphone (DILAUDID) injection 0.5 mg 0.5 mg, Intravenous, EVERY 5 MIN PRN, Severe Pain, Starting on Tue05/02/19 at 1528, Until 05/02/19 at 1648, Maximum total of 4 doses If patient reaches max total dose, please consult anesthesiologist prior to further administration of pain meds. Hold pain meds if there are signs of hypoventilation., PACU $ Given 05/02/2019 4:03 PM SURVEY STATISTICIAN 0.5 mg lactated ringers infusion at 75 mL/hr, Intravenous, CONTINUOUS, Starting on 05/02/19 at 0700, Until Kellen 05/03/19 at 1222 $ New Bag/Syringe 05/03/2019 2:05 AM SURVEY STATISTICIAN 75 mL/hr $ New Bag/Syringe 05/02/2019 9:20 AM SURVEY STATISTICIAN 75 mL/ hr metoprolol succinate XL 24hr (TOPROL XL) tablet 50 mg 50 mg, Oral, DAILY, First dose on 04/29/19 at 1730, Until Discontinued, May cut in half but do not crush or chew $ Given 05/06/2019 9:08 AM SURVEY STATISTICIAN 50 mg $ Given 05/05/2019 9:09 AM SURVEY STATISTICIAN 50 mg $ Given 05/04/2019 9:13 AM SURVEY STATISTICIAN 50 mg oxyCODONE (immediate release) (ROXICODONE) tablet 10 mg 10 mg, Oral, EVERY 4 HOURS PRN, Moderate Pain, Starting on Kellen 05/03/19 at 1221, Until 05/06/19 at 1523, Moderate pain uncontrolled by tramadol $ Given 05/05/2019 7:27 AM SURVEY STATISTICIAN 10 mg $ Given 05/03/2019 7:00 PM SURVEY STATISTICIAN 10 mg $ Given 05/03/2019 12:40 PM SURVEY STATISTICIAN 10 mg potassium chloride ER (KLOR-CON M) tablet 20 mEq 20 mEq, Oral, ONCE, 1 dose, On Tue05/04/19 at 1345, Do not crush or chew. $ Given 05/04/2019 3:45 PM SURVEY STATISTICIAN 20 mEq potassium chloride ER (KLOR-CON M) tablet 40 mEq 40 mEq, Oral, ONCE, 1 dose, On 04/30/19 at 0900, Do not crush or chew. $ Given 04/30/2019 8:59 AM SURVEY STATISTICIAN 40 mEq potassium chloride ER (KLOR-CON M) tablet 40 mEq 40 mEq, Oral, ONCE, 1 dose, On 05/05/19 at 0900, Do not crush or chew. $ Given 05/05/2019 9:14 AM SURVEY STATISTICIAN 40 mEq potassium chloride ER (KLOR-CON M) tablet 40 mEq 40 mEq, Oral, 2 TIMES DAILY WITH MEALS, 2 doses, First dose on 05/06/19 at 0845, Last dose on 05/06/19 at 1800, Do not crush or chew. $ Given 05/06/2019 9:14 AM SURVEY STATISTICIAN 40 mEq rifAMPin (RIFADIN) capsule 300 mg 300 mg, Oral, 3 TIMES DAILY, First dose on 04/29/19 at 2100, Until Discontinued, Should be given on an empty stomach, Indication for anti-infective therapy: Documented infection, Site of anti-infective therapy: Bone/Joint $ Given 05/06/2019 9:08 AM SURVEY STATISTICIAN 300 mg $ Given 05/05/2019 9:19 PM SURVEY STATISTICIAN 300 mg $ Given 05/05/2019 1:19 PM SURVEY STATISTICIAN 300 mg tamsulosin (FLOMAX) capsule 0.4 mg 0.4 mg, Oral, AT BEDTIME, First dose on 04/29/19 at 2100, Until Discontinued, At the same time every day after a meal. Do not crush, chew $ Given 05/05/2019 9:19 PM SURVEY STATISTICIAN 0.4 mg $ Given 05/04/2019 9:13 PM SURVEY STATISTICIAN 0.4 mg $ Given 05/03/2019 10:02 PM SURVEY STATISTICIAN 0.4 mg tiotropium (SPIRIVA RESPIMAT) 2.5 MCG/ACT inhaler 2 puff 2 puff, Inhalation, DAILY, First dose on 04/29/19 at 0900, Until Discontinued $ Given 05/06/2019 9:39 AM SURVEY STATISTICIAN 2 puffs $ Given 05/05/2019 7:52 AM SURVEY STATISTICIAN 2 puffs $ Given 05/04/2019 7:55 AM SURVEY STATISTICIAN 2 puffs traMADol (ULTRAM) tablet 50 mg 50 mg, Oral, EVERY 6 HOURS PRN, Moderate Pain, Starting on 04/29/19 at 0546, Until 05/06/19 at 1523 $ Given 05/06/2019 9:09 AM SURVEY STATISTICIAN 50 mg $ Given 05/05/2019 7:30 AM SURVEY STATISTICIAN 50 mg $ Given 05/04/2019 9:13 PM SURVEY STATISTICIAN 50 mg vancomycin HCl (VANCOCIN) 1,250 mg [...] tissue $ New Bag/Syringe 05/01/2019 11:04 AM SURVEY STATISTICIAN 1,250 mg 200 mL/hr $ New Bag/Syringe 04/30/2019 8:54 AM SURVEY STATISTICIAN 1,250 mg 200 mL /hr $ New Bag/Syringe 04/29/2019 9:00 AM SURVEY STATISTICIAN 1,250 mg 200 mL /hr vancomycin HCl [...] Bone/Joint $ New Bag/Syringe 05/06/2019 3:57 AM SURVEY STATISTICIAN 1,250 mg 200 mL/hr $ New Bag/Syringe 05/05/2019 9:24 AM SURVEY STATISTICIAN 1,250 mg 200 mL /hr $ New Bag/Syringe 05/04/2019 3:44 PM SURVEY STATISTICIAN 1,250 mg 200 mL /hr vancomycin HCl [...] Bone/Joint $ New Bag/Syringe 05/03/2019 3:15 PM SURVEY STATISTICIAN 1,500 mg 333.33 mL/hr $ New Bag/Syringe 05/02/2019 8:38 PM SURVEY STATISTICIAN 1,500 mg 333.33 mL/hr $ New Bag/Syringe 05/02/2019 1:20 AM SURVEY STATISTICIAN 1,500 mg 333.33 mL/hr documented in this encounter Active and Recently Administered Medications Times are shown in SURVEY STATISTICIAN. Scheduled Medication Order 05/04/2019 05/05/2019 05/06/2019 0.9% [...] 0312 ($ Given - Provider: Cee Boyce PINKING MACHINE OPERATOR)0750 ($ Given - Provider: Guadalupe Her RCP)1441 ($ Given - Provider: Guadalupe Her PINKING MACHINE OPERATOR)2113 ($ Given - Provider: Genevieve Crowder PINKING MACHINE OPERATOR) 0138 ($ Given - Provider: Mily Simental PINKING MACHINE OPERATOR)0752 ($ Given - Provider: Cleo Cota PINKING MACHINE OPERATOR)1351 ($ Given - Provider: Cleo Cota PINKING MACHINE OPERATOR)1923 ($ Given - Provider: Yoko Hale PINKING MACHINE OPERATOR) 0127 ($ Given - Provider: Yoko Hale PINKING MACHINE OPERATOR)0927 ($ Given - Provider: Tracy Goldsmith PINKING MACHINE OPERATOR)1400 (Due) apixaban (ELIQUIS) tablet 5 mg 5 [...] RCP)2112 ($ Given - Provider: Genevieve Crowder, PINKING MACHINE OPERATOR) 0752 ($ Given - Provider: Cleo Cota, PINKING MACHINE OPERATOR)1925 ($ Given - Provider: Yoko Hale, PINKING MACHINE OPERATOR) 0939 ($ Given - Provider: Tracy Goldsmith, PINKING MACHINE OPERATOR) bumetanide (BUMEX) tablet 0.5 mg 0.5 mg, [...] ($ Given - Provider: Kristen Guadarrama, DONTAE) aebplsfe-wjzlsiyau-tgzb thicone (MAALOX;MYLANTA) suspension 15 mL 15 mL, [...] documented as of this encounter Care Teams Acoustical Carpenter Relationship Specialty Start Date End Date Briana Medeiros MD [address] [place] [address] PCP - General 02/15/18 02/22/22 documented as of this encounter
--- OUTSIDE RECORDS SUMMARY | 2024-05-25 03:02 | XMS_ITS | Encounter Summary ---
Author Organization [facility] Address [address] [facility] [place] [address] Care Team Providers Care Operating Room Technologist Name Role Phone Briana Medeiros MD Primary Care Provider [phone] Encounter Details Date Type Department Care Team (Latest Contact Info) Description 06/19/2019 11:59 AM [facility] Hospital Encounter [facility] DIAGNOSTIC RAD [facility] [address] [facility] [address] Larry Alexander MD 1031 [facility] 280 [place] [address] Discharge Disposition: Home or Self Care Social [...] daily 57 capsule 05/06/2019 08/28/2019 nystatin (MYCOSTATIN) 359804 UNIT/GM powder Apply to affected area 2 [...] as needed. 10/12/2023 vitamin D, ergocalciferol, (DRISDOL) 78196 UNITS capsuleIndications:Ot her cirrhosis of liver (HCC) Take 50,000 Units by mouth every 7 days 0 02/02/2018 03/21/2023 documented as of this encounter Plan of Treatment Upcoming Encounters Date Type Department Care Team (Late st Contact Info) Description 07/09/2024 12:30 PM MANAGER OF FINANCIAL REPORTING [facility] [place] [facility] [place] [address] [place] [address], [place] [address] Twin Miller MD [address] [place] [address] [place] [address] 09/19/2024 2:00 PM CDT Office Visit [facility] - Orthopedic Surgery [address] [place] [address] Larry Alexander MD 1031 [facility] 280 [place] [address] documented as of this encounter Goals Goal [...] 2VW OR MORE Routine 06/19/2019 12:09 PM MANAGER OF FINANCIAL REPORTING Surgical follow-up care documented in this encounter Results * XR HIP RIGHT 2VW OR MORE (06/19/2019 12:09 PM MANAGER OF FINANCIAL REPORTING) Anatomical Region Laterality Modality Pelvis, Lower Extremity Radiogra [facility] 06/19/2019 1:16 PM MANAGER OF FINANCIAL REPORTING Impressions 06/19/2019 1:20 PM MANAGER OF FINANCIAL REPORTING IMPRESSION: 1.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 Adjacent heterotopic ossification, mildly increased. 2.Left total hip arthroplasty. This report was dictated by John Greene M.D. (residential interior designer). I, Dr. FILI DEE have personally reviewed and interpreted this examination/study. This report was electronically signed by FILI DEE ??on 06/19/2019 1:20 PM . Narrative 06/19/2019 1:20 PM MANAGER OF FINANCIAL REPORTING EXAMINATION: XR HIP RIGHT 2VW OR MORE, [...] was dictated by John Greene M.D. (residential interior designer). I, Dr. FILI DEE have personally reviewed [...] documented as of this encounter Care Teams Operating Room Technologist Relationship Specialty Start Date End Date Briana Medeiros MD [address] [place] [address] PCP - General 02/15/18 02/22/22 documented as of this encounter
--- OUTSIDE RECORDS SUMMARY | 2024-05-25 03:02 | XMS_ITS | Encounter Summary ---
Author Organization [facility] Address [address] [facility] [place] [address] Care Team Providers Care Packing Machine Operator Name Role Phone Briana Medeiros MD Primary Care Provider [phone] Reason for Visit * Reason Comments Pain Back Encounter Details Date Type Department Care Team (Late st Contact Info) Description 01/03/2020 12:45 PM CDT Office Visit [facility] - Orthopedics [address] [place] [address], [place] [address] Ronald Murray MD [address] [place] [address] [place] [address] T12 compression fracture, sequela (Primary [...] Salgado RN - 01/03/2020 1:51 PM CDT [facility] Department of Orthopaedic Surgery Orthopaedic Spine Clinic Discharge Form Mason Keys 01/03/2020 Thank you for coming in to see us today for your diagnosis of: XR THORACIC SPINE 2VW Recommended Treatment: No new recommendations at this time Continue wearing back brace for support Please follow-up in 1 month Mr. Keys had a clinic appointment on 01/03/2020. Please call Yudy Markham RN, at [phone] with any questions or concerns. documented in [...] be seen and was eventually seen at [facility]. He had a large ecchymosis due to his blood thinners. He was evaluated and told that he had a T12 fracture. He was treated with a brace and analgesics. There is significant difficulty trying to c ontrol his pain. He was then referred to his primary care physician who provided him with xkoesrplz98 mg/325 mg tablets. He was then told [...] several MRSA infections. He was seen at [facility] in 2018 for an MRI so [...] acute. Review of the patient's MRI from [facility] shows no evidence of acute fracture in [...] This dictation was created by using M QuickProNotes Fluency Direct. Please excuse any business account specialist errors. Ronald Murray MD documented in this encounter Plan of Treatment Upcoming Encounters Date Type Department Care Team (Late st Contact Info) Description 07/09/2024 12:30 PM CLOUD SYSTEMS ADMINISTRATOR Office Visit [facility] - GI [address] [facility], [place] [address] Twin Miller MD [facility] [place] [address] 09/19/2024 2:00 PM CDT Office Visit [facility] - Orthopedic Surgery 10[address] [place] [address] Larry Alexander MD 1031 [facility] 280 [place] [address] documented as of this encounter Goals Goal [...] documented as of this encounter Care Teams Packing Machine Operator Relationship Specialty Start Date End Date Briana Medeiros MD [address] [place], [place] [id number] PCP - General 02/15/18 02/22/22 documented as of this encounter
--- OUTSIDE RECORDS SUMMARY | 2024-05-25 03:02 | XMS_ITS | Encounter Summary ---
Author Organization [facility] Address [address] [facility] [place] [address] Care Team Providers Care Blind Aide Name Role Phone Briana Medeiros MD Primary Care Provider [phone] Encounter Details Date Type Department Care Team (Late st Contact Info) Description 06/29/2019 Orders Only [facility] - Orthopedics 12[address] [facility] [place] [address] Larry Alexander MD 1031 [facility] 280 [place] [address] Arthralgia of hip, unspecified laterality Social History [...] st Contact Info) Description 07/09/2024 12:30 PM LAWN MAINTENANCE WORKER Office Visit [facility] - GI [address] [facility], [place] [address] Twin Miller MD [facility] 2L [place] [address] 09/19/2024 2:00 PM CDT Office Visit [facility] - Orthopedic Surgery 1031 [place] [address] Larry Alexander MD 1031 [facility] 280 [place] [address] documented as of this encounter Goals Goal [...] documented as of this encounter Care Teams Blind Aide Relationship Specialty Start Date End Date Briana Medeiros MD [address] [place], [place] [address] PCP - General 02/15/18 02/22/22 documented as of this encounter
--- OUTSIDE RECORDS SUMMARY | 2024-05-25 03:02 | XMS_ITS | Encounter Summary ---
Author Organization [facility] Address [address] [facility] [place] [address] Care Team Providers Care Ring Conductor Name Role Phone Briana Medeiros MD Primary Care Provider [phone] Encounter Details Date Type Department Care Team (Latest Contact Info) Description 05/22/2019 9:20 AM [facility] Hospital Encounter [facility] [address] [facility] [place] [place] [address] Larry Alexander MD 1031 [facility] 280 [place] [address] Discharge Disposition: Home or Self Care Social [...] daily 57 capsule 05/06/2019 08/28/2019 nystatin (MYCOSTATIN) 799786 UNIT/GM powder Apply to affected area 2 [...] as needed. 10/12/2023 vitamin D, ergocalciferol, (DRISDOL) 15998 UNITS capsuleIndications:Ot her cirrhosis of liver (HCC) Take 50,000 Units by mouth every 7 days 0 02/02/2018 03/21/2023 documented as of this encounter Plan of Treatment Upcoming Encounters Date Type Department Care Team (Late st Contact Info) Description 07/09/2024 12:30 PM PLANNING INTERN [place] [facility] [place] [address] [place] [address], [place] [address] Twin Miller MD [address] [place] [address] [place] [address] 09/19/2024 2:00 PM CDT Office Visit [facility] - Orthopedic Surgery 1031 [place] [address] Larry Alexander MD 1031 [facility] 280 [place] [address] documented as of this encounter Goals Goal [...] OR 2VW Routine 05/22/2019 9: 31 AM PLANNING INTERN Surgical follow-up care documented in this encounter Results * XR PELVIS 1 OR 2VW (05/22/2019 9:31 AM PLANNING INTERN) Anatomical Region Laterality Modality Pelvis Radiographic Shama ging 05/22/2019 9:37 AM PLANNING INTERN Impressions 05/22/2019 9:49 AM PLANNING INTERN IMPRESSION: 1.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 Adjacent heterotopic ossification. 2.Left total hip arthroplasty. Dictated by Donnie Carter MD (president & ceo). I, Dr. SILAS NGUYỄN MD have personally reviewed and interpreted this examination/study. This report was electronically signed by SILAS NGUYỄN MD ??on 05/22/2019 9:49 AM . Narrative 05/22/2019 9:49 AM PLANNING INTERN EXAMINATION: XR PELVIS 1 view XR HIP [...] hip arthroplasty. Dictated by Donnie Carter MD (president & ceo). I, Dr. SILAS NGUYỄN MD have personally [...] documented as of this encounter Care Teams Ring Conductor Relationship Specialty Start Date End Date Briana Medeiros MD 3 [place] [address] PCP - General 02/15/18 02/22/22 documented as of this encounter
--- OUTSIDE RECORDS SUMMARY | 2024-05-25 03:02 | XMS_ITS | Encounter Summary ---
Author Organization [facility] Address [address] [place] [address] Care Team Providers Care Web Content Specialist Name Role Phone rBiana Medeiros MD Primary Care Provider [phone] Reason for Visit * Reason Comments Results US Encounter Details Date Type Department Care Team ([facility] Contact Info) Description 05/16/2019 Telephone [facility] - [address] [phone] Monty Gentile, RN Results (US) Social History Tobacco [...] Monty Gentile, RN - 05/16/2019 10:19 AM SOLDER TECHNICIAN Spoke with pt re: result of US and message from Dr Licona. Verbalizes understanding of same. Next appt confirmed with pt ER TECHNICIAN * Telephone Encounter - Monty Gentile, RN - 05/16/2019 10:18 AM SOLDER TECHNICIAN ----- Message from Jackelyn Licona MD sent at 05/16/2019 10:08 AM SOLDER TECHNICIAN ----- Rich, Can you let Mason know that his US shows cirrhosis but no masses suggestive of HCC? Plan to repeatagain in 6 months. Thanks. Ro ----- Message ----- From: Results Interface, Radiology In Sent: 05/16/2019 9:16 AM SOLDER TECHNICIAN To: Jackelyn Licona MD ER TECHNICIAN documented in this encounter Plan of Treatment Upcoming Encounters Date Type Department Care Team (Late st Contact Info) Description 07/09/2024 12:30 PM SOLDER TECHNICIAN Office Visit [facility] - GI [address] [place] [address], [place] [address] Twin Miller MD [address] [place] [address] [place] [address] 09/19/2024 2:00 PM CDT Office Visit [facility] - Orthopedic Surgery 10[address] [facility] [place] [address] Larry Alexander MD 1031 [facility] 280 [place] [address] documented as of this encounter Goals Goal [...] as of this encounter Care Teams Web Content Specialist Relationship Specialty Start Date End Date Briana Medeiros MD [address] [place], [place] [address] PCP - General 02/15/18 02/22/22 documented as of this encounter
--- OUTSIDE RECORDS SUMMARY | 2024-05-25 03:02 | XMS_ITS | Encounter Summary ---
Author Organization [facility] Address [address] [place] [address] Care Team Providers Care Heat Sealing Machine Operator Name Role Phone Briana Medeiros MD Primary Care Provider [phone] Reason for Visit * Reason Comments Pain Hip right hip surg 2018/abscess Encounter Details Date Type Department Care Team (Late st Contact Info) Description 06/19/2019 11:45 AM COMPUTER INSTALLER Office Visit [facility] - Orthopedics 12[address] [facility] [place] [address] Larry Alexander MD 1031 [facility] 280 [place], [place] [id number] 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 Patient and his understood the treatment plan and all questions were answered. UTER INSTALLER documented in this encounter Plan of Treatment Upcoming Encounters Date Type Department Care Team (Late st Contact Info) Description 07/09/2024 12:30 PM COMPUTER INSTALLER Office Visit [facility] - GI [address] [place] [address], [place] [address] Twin Miller MD [address] [place] [address] [place] [address] 09/19/2024 2:00 PM CDT Office Visit [facility] - Orthopedic Surgery [address] [place] [address] Larry Alexander MD 1031 [facility] 280 [place] [address] documented as of this encounter Goals Goal [...] documented as of this encounter Care Teams Heat Sealing Machine Operator Relationship Specialty Start Date End Date Briana Medeiros MD [address] [place], [place] [address] PCP - General 02/15/18 02/22/22 documented as of this encounter
--- OUTSIDE RECORDS SUMMARY | 2024-05-25 03:03 | XMS_ITS | Encounter Summary ---
Author Organization [facility] Address [address] [facility] [place] [address] Care Team Providers Care Dental Practice Manager Name Role Phone Briana Medeiros MD Primary Care Provider [phone] Reason for Referral * Radiology Services (Routine) - Closed Specialty Diagnoses / Procedures Referred By Contac t Referred To Contact Ultrasound Diagnoses Liver cirrhosis secondary to MICHAUD (HCC) Metabolic syndrome Procedures US ABDOMEN LIMITED Jackelyn Licona MD [address] [place] [address] [address] Referral ID Status Reason Start Date Expiration Date Visits Re quested Visits Authorized [id number] Closed 05/07/2019 11/03/2019 1 1 Reason for Visit * Reason Comments Michaud Cirrhosis Encounter Details Date Type Department Care Team (Late st Contact Info) Description 02/27/2019 2:30 PM CDT Office Visit [facility] GI [address] [place] [address] Jackelyn Licona MD [address] [place] [address] Liver cirrhosis secondary to MICHAUD [...] the physicians and other specialists at the [facility] Gastroenterology and Hepatology clinic today. Following [...] please call (hospital main number), ask the wooling machine operator to call the gastroenterology fellow environmental engineering aide. Emergency; call [phone] or go to your closest emergency room. For more information, below are some useful websites: More information about us and our services can be found on our websites at www.[email or web address] and www.[facility] hospitalLife800.[employer]/en-us/ourservices/medicalservices/pages/digestivediseasesdis orders.aspx Hospital information can be found at: www.[email or web address].[email or web address] Information about other [facility] providers can be found at: www.[facility].edu Information about the [employer], a ylz-hkn-cxvdtv foundation supporting liver disease research by your doctors and researchers at [facility], can be found at: www.[facility].org You can sign up to receive emails with updates on current GI topics called the [employer]. These come out twice a week from one of our professional organizations, the [employer]. Go to this website to sign up: [email or web address].[facility].[employer]/dhsb IMPORTANT The following information and instructions are from your visit today: ?? Plan for ultrasound in May 2019. Labs at [facility] before that Ultrasound. ?? Followup in 6 months. documented in this encounter Progress Notes * Jackelyn Licona MD - 02/27/2019 2:30 PM CDT [facility] Jackelyn Licona MD Referring Provider: Vandana Alexander MD PCP: Briana Medeiros MD Interval history and subjective concerns: I had the pleasure of meeting Mason Keys at the [facility] on 02/27/2019. This is a [...] medication. Interval events: He was hospitalized at [facility] for infection of prior hip arthroplasty. ON home abx. Had cataract surgery in Jun 2018. Vision has improved. Alcohol: Does not drink alcohol. Tobacco: He did smoke from 0936-1933. Review of Systems: Constitutional: negative for fevers, [...] % 16 - 50 % 5 (L) Sxfwj-5-Sgwvjmsuqhz 90 - 200 mg/dL 223 (H) Phenotype [...] hepatic vasculature. Liver biopsy/Fibroscan: Assessment: 1. Compensated MICHADU cirrhosis -Transplant is not a consideration at [...] prior to that visit. Jackelyn Licona MD Crude Tester Division of Gastroenterology and Hepatology No orders [...] 45 days ??? vitamin D, ergocalciferol, (DRISDOL) 60400 UNITS capsule Take 50,000 Units by mouth [...] st Contact Info) Description 07/09/2024 12:30 PM LOCK AND DAM REPAIRER Office Visit [facility] - GI [address] [place] [address], [place] [address] Twin Miller MD [address] [place] [address] [place] [address] 09/19/2024 2:00 PM CDT Office Visit [facility] - Orthopedic Surgery [address] [place] [address] Vandana Alexander MD [address] [address] documented as of this encounter Goals Goal [...] * US ABDOMEN LIMITED (05/16/2019 9:16 AM LOCK AND DAM REPAIRER) Anatomical Region Laterality Modality Abdomen Ultrasound 05/16/2019 9:05 AM LOCK AND DAM REPAIRER Impressions 05/16/2019 9:10 AM LOCK AND DAM REPAIRER IMPRESSION: 1. Hepatic cirrhosis. No discrete hepatic lesion or biliary dilatation. 2. Cholelithiasis without evidence of acute cholecystitis. Dictated by Jay Bowens MD (director of radiology) I, Dr. VANDANA HENSLEY M.D. have personally reviewed and interpreted this examination/study. This report was electronically signed by VANDANA HENSLEY M.D. ??on 05/16/2019 9:10 AM . Narrative 05/16/2019 9:10 AM LOCK AND DAM REPAIRER EXAMINATION: Limited abdominal sonogram HISTORY: 68-year-old male [...] acute cholecystitis. Dictated by Jay Bowens MD (director of radiology) I, Dr. VANDANA HENSLEY M.D. have personally reviewed and interpreted this examination/study. This report was electronically signed by VANDANA HENSLEY M.D. on 05/16/2019 9:10 AM . Jackelyn Licona MD ORDERABLES * ALPHA FETOPROTEIN BLOOD TUMOR (04/24/2019 11:41 AM LOCK AND DAM REPAIRER) Alpha-Fetoprotein Tumor Marker 0.8 0.0 - 8.3 ng/mL 04/25/2019 5:07 AM LOCK AND DAM REPAIRER [facility] Comment: [facility] [employer] Electrochemiluminescence Immunoassay (ECLIA) Values obtained with different assay methods or kits cannot be used interchangeably. ??Results cannot be interpreted as absolute evidence of the presence or absence of malignant disease. This test is not interpretable in females. Blood BLOOD SPECIMEN / Unknown Lab Venipuncture / Unknown 04/24/2019 11:41 AM LOCK AND DAM REPAIRER 04/24/2019 11:41 AM LOCK AND DAM REPAIRER Narrative [facility] ([facility]) - 04/25/2019 5:07 AM LOCK AND DAM REPAIRER Performed at: ??01 - [facility] [address] ??[id number] Vending Machine Filler: Erik Mcqueen PhD, Phone: ??[phone] Jackelyn Licona MD LAB - CHEMISTRY [facility] Organization Address City/State/ZIP Co de Phone Number [facility] ([facility]) [address] [place] [address] documented in this encounter Visit Diagnoses Diagnosis [...] as of this encounter Care Teams Dental Practice Manager Relationship Specialty Start Date End Date Briana Medeiros MD [address] [place] [address] PCP - General 02/15/18 02/22/22 documented as of this encounter
--- OUTSIDE RECORDS SUMMARY | 2024-05-25 03:03 | XMS_ITS | Encounter Summary ---
Author Organization [facility] Address [address] [facility] [place] [address] Care Team Providers Care Bridge Carpenter Name Role Phone Briana Medeiros MD Primary Care Provider [phone] Encounter Details Date Type Department Care Team (Latest Contact Info) Description 02/27/2019 9:57 AM CDT Hospital Encounter [facility] DIAGNOSTIC RAD [facility] 1[address] [facility] [place] [address] Larry Alexander MD 1031 [facility] 280 [place] [address] Discharge Disposition: Home or Self Care Social [...] Each 02/15/2019 04/01/2019 vitamin D, ergocalciferol, (DRISDOL) 48252 UNITS capsuleIndications:Ot her cirrhosis of liver (HCC) [...] st Contact Info) Description 07/09/2024 12:30 PM RULING MACHINE OPERATOR Office Visit [facility] [place] [address] [place] [address], [place] [address] Twin Miller MD [address] [place] [address] [place] [address] 09/19/2024 2:00 PM CDT Office Visit [facility] - [facility] [address] [facility] [place] [address] Larry Alexander MD [address] [place] [address] documented as of this encounter Goals Goal [...] West. CT Right hip dated 02/02/2019 from [place], [place]. Findings: Right hip: Total hip arthroplasty [...] West. CT Right hip dated 02/02/2019 from [place], [place]. Findings: Right hip: Total hip arthroplasty [...] documented as of this encounter Care Teams Bridge Carpenter Relationship Specialty Start Date End Date Briana Medeiros MD [address] [place] [address] PCP - General 02/15/18 02/22/22 documented as of this encounter
--- OUTSIDE RECORDS SUMMARY | 2024-05-25 03:03 | XMS_ITS | Encounter Summary ---
Author Organization [facility] Address [address] [facility] [place] [address] Care Team Providers Care Water Pollution Control Technician Name Role Phone Briana Medeiros MD Primary Care Provider [phone] Reason for Visit * Reason Comments Infectious Disease Wound Care Encounter Details Date Type Department Care Team (Latest Contact Info) Description 04/24/2019 9:36 AM TICKER WIRER - 04/24/2019 11:04 AM TICKER WIRER Hospital Encounter Wound Care at Formerly named [facility] [address] [place] [address] Raysa Nevarez MD [address] [place] [address] Discharge Disposition: Home or Self Care Social [...] Comments Blood Pressure 116/79 04/24/2019 9:58 AM TICKER WIRER Pulse 78 04/24/2019 9:58 AM TICKER WIRER Temperature 36.5 ??C (97.7 ??F) 04/24/2019 9:58 AM CS T Respiratory Rate 20 04/24/2019 9:58 AM TICKER WIRER Oxygen Saturation - - Inhaled Oxygen Concentration [...] 2 times daily 02/15/2019 04/29/2019 nystatin (MYCOSTATIN) 618340 UNIT/GM powder Apply to affected area 2 [...] as needed. 10/12/2023 vitamin D, ergocalciferol, (DRISDOL) 82505 UNITS capsuleIndications:Oth er cirrhosis of liver (HCC) [...] results for input(s): CK in the last 51001 hours. No results for input(s): SEDRATE in the last 14555 hours. Recent Labs Component Name 08/15/17 0348 08/09/17 0745 08/05/17 0445 CRP 4.1* 32.0* 14.4* No results for input(s): CDIFFTOXINAB in the last 90306 hours. Recent Labs Component Name 02/04/19 0617 [...] the spine with epidural abscess treated at [facility] last Plan Continue with doxycycline Obtain sed rate CRP today Discussed with patient's will follow-up in 6 months Please be advised that part of this text was done using voice recognition software. Errors may havebeen missed upon review. Raysa Nevarez MD ER WIRER * Karen Jovel RN - 04/24/2019 10:05 AM CST Patient presents to Wound Center for new visit to consult with Dr. Nevarez. Initial nursing assessment done, new wound assessed, measured and photographed, screenings completed on Nutrition, Safety, Abuse, Home Function, Advance Directive, Fall Assessment, Rex Scale, and pain. Initial care plan and education assessment completed. Home care: [facility] Supplies: no ER WIRER documented in this encounter Plan of Treatment Upcoming Encounters Date Type Department Care Team (Late st Contact Info) Description 07/09/2024 12:30 PM TICKER WIRER [facility] [place] [facility] [place] [address] [place] [address], [place] [address] Twin Miller MD [address] [place] [address] [place] [address] 09/19/2024 2:00 PM CDT Office Visit [facility] - Orthopedic Surgery 1031 [place] [address] Larry Alexander MD [address] [address] documented as of this encounter Goals Goal [...] (ABNORMAL) ERYTHROCYTE SEDIMENTATION RATE (04/24/2019 11:41 AM TICKER WIRER) Erythrocyte Sedimentation Rate Automated 70(H) 0 - 20 MM/HR 04/24/2019 12:25 PM TICKER WIRER [facility] Blood BLOOD SPECIMEN / Unknown Lab Venipuncture / Unknown 04/24/2019 11:41 AM TICKER WIRER 04/24/2019 11:41 AM TICKER WIRER Raysa Nevarez MD LAB - HEMATOLOGY ORD ERABLES Performing Organization Address City/Special Care Hospital/ZIP Co de Phone Number [facility] [address] [place] [address] * (ABNORMAL) C-REACTIVE PROTEIN (04/24/2019 11:40 AM TICKER WIRER) C-Reactive Protein 1.41(H) <=0.50 mg/dL 04/24/2019 12:51 PM TICKER WIRER [facility] Blood BLOOD SPECIMEN / Unknown Lab Venipuncture / Unknown 04/24/2019 11:40 AM TICKER WIRER 04/24/2019 11:40 AM TICKER WIRER Raysa Nevarez MD LAB - CHEMISTRY ROYCE KLINE Performing Organization Address City/Special Care Hospital/ZIP Co de Phone Number [facility] [address] [place] [address] documented in this encounter Visit Diagnoses Diagnosis 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
--- OUTSIDE RECORDS SUMMARY | 2024-05-25 03:03 | XMS_ITS | Encounter Summary ---
Author Organization [facility] Address [address] [facility] [place] [address] Care Team Providers Care Staff Antisubmarine Officer Name Role Phone Briana Medeiros MD Primary Care Provider [phone] Reason for Visit * Reason Comments Pain Hip Encounter Details Date Type Department Care Team (Late st Contact Info) Description 02/27/2019 10:15 AM CDT Office Visit [facility] - Orthopedics [address] [place] [address] [place] [address] Larry Alexander MD 1031 [facility] 280 [place], [place] [phone] 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 Nevarez regarding termite treater plan for antibiotics. Pain controlled on current [...] and Swelling ??? Scopace [Scopolamine] Other and FINISHING POWDER PRESS OPERATOR Dysfunction delirium Medications Current Outpatient Medications Medication [...] 250 mL ??? vitamin D, ergocalciferol, (DRISDOL) 44770 UNITS capsule ??? warfarin (COUMADIN) 4 MG [...] with delayed primary closure 02/08/[address] [facility] 1. Patient was counseled to the nature of their diagnosis and demonstrated understanding. Questionssolicited and answered. 2. WBAT RLE 3. [place] DC'd in clinic today 4. Patient will follow up with Dr. Nevarez for antibiotic management 5. [facility] 6. Return to [...] st Contact Info) Description 07/09/2024 12:30 PM CROWN POUNCER Office Visit [facility] - GI [address] [place] [address], [place] [address] Twin Miller MD [address] [place] [address] [place] [address] 09/19/2024 2:00 PM CDT Office Visit [facility] - Orthopedic Surgery [facility]1 [place] [phone] Larry Alexander MD [facility] 280 [place] [address] documented as of this encounter Goals Goal [...] as of this encounter Care Teams Staff Antisubmarine Officer Relationship Specialty Start Date End Date Briana Medeiros MD [address] [place], [place] [phone] PCP - General 02/15/18 02/22/22 documented as of this encounter
--- OUTSIDE RECORDS SUMMARY | 2024-05-25 03:03 | XMS_ITS | Encounter Summary ---
Author Organization [facility] Address [address] [facility] [place] [address] Care Team Providers Care Supervisor Bleach Plant Name Role Phone Briana Medeiros MD Primary Care Provider [phone] Encounter Details Date Type Department Care Team (Latest Contact Info) Description 02/27/2019 9:57 AM CDT Hospital Encounter [facility] DIAGNOSTIC RAD [facility] [address] [facility] [place] [address] Larry Alexander MD 1031 [facility] 280 [place] [address] Discharge Disposition: Home or Self Care Social [...] Each 02/15/2019 04/01/2019 vitamin D, ergocalciferol, (DRISDOL) 52700 UNITS capsuleIndications:Ot her cirrhosis of liver (HCC) [...] st Contact Info) Description 07/09/2024 12:30 PM BLOCK MACHINE OPERATOR Office Visit [facility] [place] [address] [place] [address], [place] [address] Twin Miller MD [address] [place] [address] [place] [address] 09/19/2024 2:00 PM CDT Office Visit [facility] - Orthopedic Surgery [address] [facility] [place] [address] Larry Alexander MD [address] [place] [address] [place] [address] documented as of this encounter Goals Goal [...] Region Laterality Modality Pelvis, Lower Extremity Radiogra [facility] 02/27/2019 10:1 7 AM CDT Impressions [...] and right hip radiographs dated 02/02/[address] [facility] CT Right hip dated 02/02/2019 from [place]. Findings: Right hip: Total hip arthroplasty [...] Pelvis [facility] right [facility] Right hip dated 02/02/2019 from [place]. Findings: Right hip: Total hip arthroplasty [...] as of this encounter Care Teams Supervisor Bleach Plant Relationship Specialty Start Date End Date Briana Medeiros MD [address] [place] [address] PCP - General 02/15/18 02/22/22 documented as of this encounter
--- OUTSIDE RECORDS SUMMARY | 2024-05-25 03:03 | XMS_ITS | Encounter Summary ---
Author Organization [facility] Address [address] [facility] [place] [address] Care Team Providers Care Price Lister Name Role Phone Briana Medeiros MD Primary Care Provider Reason for Visit * Reason Comments Results Encounter Details Date Type Department Care Team (Late st Contact Info) Description 04/26/2019 Telephone [facility] - [address] [phone] Monty Gentile, RN Results Social History Tobacco [...] [place]. Office # left if any questions. LESS TELEGRAPHER * Telephone Encounter - Monty Gentile, RN - 04/26/2019 2:23 PM CST ----- Message from Jackelyn Licona MD sent at 04/25/2019 8:54 AM WIRELESS TELEGRAPHER ----- Rich, Please let Mason know that his AFP is wnl. Will await his imaging for hCC screening. Thanks. Ro ----- Message ----- From: Interface, Generic Out Multi Sent: 04/25/2019 4:07 AM WIRELESS TELEGRAPHER To: Jackelyn Licona MD LESS TELEGRAPHER documented in this encounter Plan of Treatment Upcoming Encounters Date Type Department Care Team (Late st Contact Info) Description 07/09/2024 12:30 PM WIRELESS TELEGRAPHER Office Visit [facility] - GI [address] [place] [address], [place] [address] Twin Miller MD [address] [place] [address] [place] [address] 09/19/2024 2:00 PM CDT Office Visit [facility] - Orthopedic Surgery [facility] [place] [phone] Larry Alexander MD 1031 [facility] 280 [place] [address] documented as of this encounter Goals Goal [...] documented as of this encounter Care Teams Price Lister Relationship Specialty Start Date End Date Briana Medeiros MD [address] [place] [address] PCP - General 02/15/18 02/22/22 documented as of this encounter
--- OUTSIDE RECORDS SUMMARY | 2024-05-25 03:03 | XMS_ITS | Encounter Summary ---
Author Organization [facility] Address [address] [facility] [place] [address] Care Team Providers Care Explosives Detonator Name Role Phone Briana Medeiros MD Primary Care Provider [phone] Reason for Visit * Auth/Cert Specialty Diagnoses / Procedures Referred By Contac t Referred To Contact Diagnoses Prosthetic Joint Infection Referral ID Status Reason Start Date Expiration Date Visits Re quested Visits Authorized [id number] 1 1 Encounter Details Date Type Department Care Team (Late st Contact Info) Description 05/02/2019 1:15 PM WASTE RECLAIMER Anesthesia Event [facility] PERIOPERATIVE 64[address] [place] [address] Andres Anton MD [address] [facility] [address] Anesthesia Record Procedure Summary Procedure Name Responsible [...] Care Non Reportable Improvement Section (otherwise blank): E RECLAIMER * Larry Menchaca APRN-BLOCK CUTTER - 05/01/2019 9:53 AM CST ANESTHESIA PREOPERATIVE [...] discussed with: patient ( [facility] telephone consent [phone]) Anesthetic Plan discussion was: Consented Use of [...] puffy, itchy ??? Scopace [Scopolamine] Other and TRAILER CHIEF Dysfunction delirium Relevant Problems Cardiovascular (+) Chronic [...] ??? S/P PICC central line placement 02/13/2019 [facility] VAT R basilic ??? Seizures [...] 9.5 ALT - 27 AST - 30 E RECLAIMER documented in this encounter Procedure Notes * Puneet Kohler APRN-CRNA - 05/02/2019 2:15 PM CSTAssociated Order(s): Peripheral IV Placement Peripheral IV Line Placement: Patient Location: OR Procedure: IV start (78192). Procedure Section: Skin Prep: Chloraprep. Orientation: right Location: arm Brand Name: CESPEDES. Catheter Gauge: 18 Number of Attempts: 1. Procedure Tolerance: performed while patient under general anesthesia. Procedure Start Time: 05/02/2019 1:48 PM. Procedure End Time: 05/02/2019 1:51 PM. Procedure Total Time: 3 minutes. Staff Section Anesthesia Provider: Puneet Kohler APRN-CRNA, Performed the procedure E RECLAIMER * Puneet Kohler APRN-CRNA - 05/02/2019 2:06 PM CSTAssociated Order(s): ETT Placement Endotracheal Tube Placement: Patient Location: OR. Intubation Event Date/Time: 05/02/2019 1:21 PM Procedure: intubation ([id number]). Procedure Section: Sedation: under general anesthesia. Indications [...] Provider: Puneet Kohler APRN-CRNA, Performed the procedure E RECLAIMER documented in this encounter Miscellaneous Notes * [...] puffy, itchy ??? Scopace [Scopolamine] Other and TRAILER CHIEF Dysfunction delirium Vitals: Patient Vitals for the past 3 hrs: BP Temp Pulse Resp 05/02/19 1520 114/43 97.2 ??F (36.2 ??C) 73 16 Lines, Drains, and Airways Type Details Placement Removal Enteral - 09/15/17; 914; Dr. Guerra; PEG; Abdomen, Left; Well 09/15/17914 by Densie Damon, DONTAE Peripheral IV Date: 04/29/19; Time: 2230; Orientation: Left, Posterior, Distal; Location: Forearm; Placed By: Duke Yousif RN; Gauge: 22 Gauge 04/29/192229 by Moise Yousif, RN ETT Date: 05/02/19; Time: 1321; Placed By: Puneet Kohler APRN-BLOCK CUTTER; Vent: easy mask; Induction: Standard IV; Blade [...] report from the receiving PACUteam. SYDNIE Gomez E RECLAIMER documented in this encounter Plan of Treatment Upcoming Encounters Date Type Department Care Team (Late st Contact Info) Description 07/09/2024 12:30 PM WASTE RECLAIMER Office Visit [facility] - GI [address] [place] [address], [facility] [place] [address] Twin Milelr MD [address] [place] [address] [place] [address] 09/19/2024 2:00 PM CDT Office Visit [facility] - Orthopedic Surgery [address] [facility] [place] [address] Larry Alexander MD [address] [place] [address] documented as of this encounter Goals Goal [...] IV NOTE Routine 05/02/2019 2: 15 PM WASTE RECLAIMER ENDOTRACHEAL TUBE NOTE Routine 05/02/2019 2:06 PM WASTE RECLAIMER documented in this encounter Results * IV PLACEMENT PERFORMABLE (05/02/2019 2:15 PM WASTE RECLAIMER) Narrative Puneet Kohler APRN-CRNA - 05/02/2019 2:15 PM WASTE RECLAIMER Puneet Kohler APRN-CRNA ? 05/02/2019 ??2:16 PM Peripheral IV Line Placement: Patient Location: ??OR Procedure: IV start ([id number]). Procedure Section: ?? Skin Prep: Chloraprep. Orientation: [...] * ETT LINE PERFORMABLE (05/02/2019 2:06 PM WASTE RECLAIMER) Narrative Puneet Kohler APRN-CRNA - 05/02/2019 2:06 PM WASTE RECLAIMER Puneet Kohler APRN-CRNA ? 05/02/2019 ??2:07 PM Endotracheal Tube Placement: ? Patient Location: OR. Intubation Event Date/Time: ??05/02/2019 1:21 PM Procedure: intubation ([id number]). Procedure Section: ?? Sedation: under general anesthesia. [...] Anesthesia Intra-op $ Given 05/02/2019 1:17 PM WASTE RECLAIMER 2 g dexamethasone (DECADRON) injection Intravenous, PRN, Starting on Tue05/02/19 at 1325, Until Tue05/02/19 at 1518, Anesthesia Intra-op $ Given 05/02/2019 1:25 PM WASTE RECLAIMER 4 mg fentaNYL (PF) (SUBLIMAZE) injection PRN, Starting on Tue05/02/19 at 1317, Until Tue05/02/19 at 1518, Anesthesia Intra-op $ Given 05/02/2019 1:17 PM WASTE RECLAIMER 100 mcg gentamicin (GARAMYCIN) 400 mg in 0.9% NaCl 100 mL IVPB 400 mg, at 200 mL/hr, Intravenous, PRE-OP ONCE, 1 dose, On Tue05/02/19 at 1130, Indication for anti-infective therapy: Surgical prophylaxis $ Given 05/02/2019 1:17 PM WASTE RECLAIMER 400 mg lactated ringers infusion CONTINUOUS PRN, Starting on Tue05/02/19 at 1300, Until Tue05/02/19 at 1518, Anesthesia Intra-op $ New Bag/Syringe 05/02/2019 1:00 PM WASTE RECLAIMER lidocaine (XYLOCAINE) 2 % injection PRN, Starting on Tue05/02/19 at 1320, Until Tue05/02/19 at 1518, Anesthesia Intra-op $ Given 05/02/2019 1:20 PM WASTE RECLAIMER 20 mg Ondansetron HCl (ZOFRAN) injection PRN, Starting on Tue05/02/19 at 1425, Until Tue05/02/19 at 1518, Anesthesia Intra-op $ Given 05/02/2019 2:25 PM WASTE RECLAIMER 4 mg phenylephrine (ZULY-SYNEPHRINE) infusion CONTINUOUS PRN, Starting on Tue05/02/19 at 1345, Until Tue05/02/19 at 1518, Anesthesia Intra-op $ New Bag/Syringe 05/02/2019 1:45 PM WASTE RECLAIMER Phenylephrine HCl (ZULY-SYNEPHRINE) injection Intravenous, PRN, Starting on Tue05/02/19 at 1344, Until Tue05/02/19 at 1518, Anesthesia Intra-op $ Given 05/02/2019 1:44 PM WASTE RECLAIMER 100 mcg propofol (DIPRIVAN) injection PRN, Starting on Tue05/02/19 at 1320, Until Tue05/02/19 at 1518, Anesthesia Intra-op $ Given 05/02/2019 3:11 PM WASTE RECLAIMER 20 mg $ Given 05/02/2019 1:20 PM WASTE RECLAIMER 150 mg rocuronium (ZEMURON) injection Intravenous, PRN, Starting on Tue05/02/19 at 1325, Until Tue05/02/19 at 1518, Anesthesia Intra-op $ Given 05/02/2019 1:25 PM WASTE RECLAIMER 30 mg succinylcholine (ANECTINE) injection PRN, Starting on Tue05/02/19 at 1320, Until Tue05/02/19 at 1518, Anesthesia Intra-op $ Given 05/02/2019 1:20 PM WASTE RECLAIMER 100 mg sugammadex (BRIDION) injection PRN, Starting on Tue05/02/19 at 1427, Until Tue05/02/19 at 1518, Anesthesia Intra-op $ Given 05/02/2019 2:27 PM WASTE RECLAIMER 200 mg tranexamic acid (CYKLOKAPRON) injection 1,000 mg 1,000 mg, Intravenous, PRE-PROCEDURE ONCE, 1 dose, On Tue05/02/19 at 0630, Do not inject more rapidly than 1 mL/min to avoid hypotension. 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
--- OUTSIDE RECORDS SUMMARY | 2024-05-25 03:03 | XMS_ITS | Encounter Summary ---
Author Organization [facility] Address [address] [facility] [place] [address] Care Team Providers Care Tinware Lithograph Press Operator Name Role Phone Briana Medeiros MD Primary Care Provider [phone] Encounter Details Date Type Department Care Team (Latest Contact Info) Description 04/24/2019 11:05 AM JAVASCRIPT DEVELOPER - 04/24/2019 11:59 PM [facility] Hospital Encounter [facility] [address] [place] [id number] Raysa Nevarez MD [address] [address] Discharge Disposition: Home or Self Care Social [...] 2 times daily 02/15/2019 04/29/2019 nystatin (MYCOSTATIN) 007393 UNIT/GM powder Apply to affected area 2 [...] as needed. 10/12/2023 vitamin D, ergocalciferol, (DRISDOL) 46626 UNITS capsuleIndications:Oth er cirrhosis of liver (HCC) Take 50,000 Units by mouth every 7 days 0 02/02/2018 03/21/2023 documented as of this encounter Plan of Treatment Upcoming Encounters Date Type Department Care Team (Late st Contact Info) Description 07/09/2024 12:30 PM JAVASCRIPT DEVELOPER Office Visit [facility] [address] [place] [address], [place] [id number] Twin Miller MD [address] [place] [address] [place] [address] 09/19/2024 2:00 PM CDT Office Visit [facility] - Orthopedic [facility] [place] [id number] Larry Alexander MD [address] [address] documented as of this encounter Goals Goal [...] BLOOD TUMOR MARKER Routine 04/24/2019 11:41 AM JAVASCRIPT DEVELOPER Liver cirrhosis secondary to RAYGOZA (HCC) Metabolic syndrome ERYTHROCYTE SEDIMENTATION RATE Routine 04/24/2019 11:41 AM JAVASCRIPT DEVELOPER 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 ??Results cannot be interpreted as absolute evidence of the presence or absence of malignant disease. This test is not interpretable in females. Blood BLOOD SPECIMEN / Unknown Lab Venipuncture / Unknown 04/24/2019 11:41 AM JAVASCRIPT DEVELOPER 04/24/2019 11:41 AM JAVASCRIPT DEVELOPER Narrative [facility] ([facility]) - 04/25/2019 5:07 AM JAVASCRIPT DEVELOPER Performed at: ??01 - [facility] [address], [place], [place] ??[id number] Market Relationship Manager: Erik Mcqueen PhD, Phone: ??[phone] Jackelyn Licona MD LAB - CHEMISTRY ROYCE KLINE [facility] ([facility]) [address] [place] [address] * (ABNORMAL) ERYTHROCYTE SEDIMENTATION RATE (04/24/2019 11:41 AM JAVASCRIPT DEVELOPER) Erythrocyte Sedimentation Rate Automated 70(H) 0 - 20 MM/HR 04/24/2019 12:25 PM JAVASCRIPT DEVELOPER [facility] Blood BLOOD SPECIMEN / Unknown Lab Venipuncture / Unknown 04/24/2019 11:41 AM JAVASCRIPT DEVELOPER 04/24/2019 11:41 AM JAVASCRIPT DEVELOPER Raysa Nevarez MD LAB - HEMATOLOGY RAFFY SNOWDEN Performing Organization Address City/[facility]/ZIP Co de Phone Number [facility] [address] [place] [id number] * (ABNORMAL) C-REACTIVE PROTEIN (04/24/2019 11:40 AM JAVASCRIPT DEVELOPER) Pathologist [facility] C-Reactive Protein 1.41(H) <=0.50 mg/dL 04/24/2019 12:51 PM JAVASCRIPT DEVELOPER [facility] Blood BLOOD SPECIMEN / Unknown Lab Venipuncture / Unknown 04/24/2019 11:40 AM JAVASCRIPT DEVELOPER 04/24/2019 11:40 AM JAVASCRIPT DEVELOPER Raysa Nevarez MD LAB - CHEMISTRY ROYCE KLINE Performing Organization Address City/[facility]/ZIP Co de Phone Number [facility] [address] [place] [address] documented in this encounter Visit Diagnoses Diagnosis 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
--- OUTSIDE RECORDS SUMMARY | 2024-05-25 03:03 | XMS_ITS | Encounter Summary ---
Author Organization [facility] Address [address] [place] [address] Care Team Providers Care Dispatcher Refinery Name Role Phone Briana Medeiros MD Primary Care Provider [phone] Reason for Visit * Auth/Cert Specialty Diagnoses / Procedures Referred By Contac t Referred To Contact Diagnoses Right hip infection Referral ID Status Reason Start Date Expiration Date Visits Re quested Visits Authorized [id number] 1 1 Encounter Details Date Type Department Care Team (Latest Contact Info) Description 02/02/2019 8:57 PM CDT - 02/15/2019 7:00 PM CDT Hospital Encounter [facility] ORTHO/NEW VIS [address] [place] [address] Michelle Pratt MD [address] [place] [address] Blaire Meek MD [address] [place] [address] Poncho Cisneros MD [address] [place] [address] Lilly Jurado APRN-RECYCLING ASSISTANT [address] [facility] [address] [place] [id number] Surgery Orthopedics Discharge Disposition: Half-Way Facility Social History Tobacco Use Types Packs/Day [...] Discharge date: 02/15/2019 Admitting Physician: Lilly Jurado APRN-RECYCLING ASSISTANT Attending Physician: Poncho Cisneros MD Discharge Physician: [...] -Continue Symbicort Condition at discharge: good Disposition: [facility] facility Code Status At Discharge Full Code [...] 4 hours as needed vitamin D (ergocalciferol) 69003 units capsule Commonly known as: DRISDOL Take 50,000 Units by mouth every 7 days STOP taking these medications bumetanide 0.5 MG tablet Commonly known as: BUMEX ELIQUIS 5 MG tablet Generic drug: apixaban ferrous sulfate 325 (65 FE) MG tablet lidocaine 5 % patch Commonly known as: LIDODERM metoprolol succinate XL 24hr 50 MG tablet Commonly known as: TOPROL XL nystatin 295189 UNIT/GM powder Commonly known as: MYCOSTATIN Oxygen [...] 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 ??No scrubbing aroundincision. ? [place] to be removed??at [address] Alexander ?? Call [phone] to schedule the first follow-up appointment with [...] Each 02/15/2019 04/01/2019 vitamin D, ergocalciferol, (DRISDOL) 78103 UNITS capsuleIndications:Ot her cirrhosis of liver (HCC) [...] and capped . Pt;s Ride him to [facility]. All the belonging handed over to patient. Called report to DONTAE Caballero. Gladis Pacheco RN 02/15/2019 8:05 PM * Mila Degroot MSW - 02/15/2019 3:52 PM CDT Facility Transfer Note Level of Care: Skilled Rehab Payor Source: Medicare [facility] [phone] (toño) [phone] ([place]ika) [place] Made Aware of Special Needs (if applicable): N/A RN Call Report to: [phone], 100 meek RN RN Fax D/C Orders to: [phone] Transportation: Family Certificate of Medical Necessity rationale: not applicable Date/time of transfer: 02/15/19, TBD Accepting MD: Clay Completed and Signed DQ880C (if applicable): not applicable Family/Other Notified of Transfer (name/phone): Extended Emergency Contact Information Primary Emergency Contact: Trinity Keys Address: [address] [place] [address] [place] [address] [facility] Mobile Relation: Spouse Wet End Supervisor needed? No Authorization Skilled Care: not applicable Authorization for Transportation: not applicable Comments: They will accept pt up until 8 pm today. If pt is going to be later than 8 then he will need to wait until 02/16/19. CHRIS Clifford 02/15/2019 3:52 PM [phone] * oYko Montgomery, OT - 02/15/2019 3:40 PM CDT [...] results for input(s): DDIMERMGL in the last 30307 hours. Warfarin Dose History Date INR Dose [...] hip arthroplasty infection Referring Physcian: Lilly Jurado APRN-RECYCLING ASSISTANT Name: José Miguel Keys Age: [age] year [...] results for input(s): CDIFFTOXINAB in the last 08484 hours. No results for input(s): SEDRATE in the last 58695 hours. Recent Labs Component Name 08/15/17 0348 08/09/17 0745 08/05/17 0445 CRP 4.1* 32.0* 14.4* No results for input(s): CK in the last 14409 hours. .No results for input(s): VANCOTROUGH, VANCOPEAK, VANCSERIES in the last 20510 hours. Invalid input(s): VANCORAND Recent Labs Component [...] sed rate, C-reactive protein Fax results to [phone] Please be advised that part of this text was done using voice recognition software. Errors may havebeen missed upon review. Raysa Nevarez MD * Mila Degroot SKI PATROL - 02/15/2019 12:14 PM CDT Social Work Progress Note Chart reviewed, this SW following today, work up and treatment is in progress, as per previous CM/SW notes, plan is: SNF. Pt would like to go to [facility]: [phone] (f) [phone]. SW made the referral and they are going to review for placement. SW will update once progress is made. 1551- Pt is accepted at [facility]: [phone] (f) [phone] and they can accept him today after he gets his IV vanc. Discharge Plan Disposition: SNF Transportation: Ambulance Anticipated Discharge Date: TBD Contacts: Extended Emergency Contact Information Primary Emergency Contact: Trinity Keys Address: [address] [place] [address] [place] [address] [facility] Mobile Relation: Spouse Wet End Supervisor needed? No CHRIS Clifford 02/15/2019 12:14 PM [...] obtain a vancomycin level this evening 02/15 ih7032. Will continue to adjust and monitor. Nicole [...] results for input(s): MAGMGDL in the last 43002 hours. Recent Labs Component Name 09/19/17 0243 [...] whenever one becomes available. Poncho Cisneros MD [facility] Hospitalist 02/14/2019 7:02 PM * Neva [...] results for input(s): DDIMERMGL in the last 25403 hours. Warfarin Dose History Date INR Dose [...] hip arthroplasty infection Referring Physcian: Lilly Jurado APRN-RECYCLING ASSISTANT Name: José Miguel eKys Age: [age] year old 10 Seen yesterday [...] results for input(s): CDIFFTOXINAB in the last 72859 hours. No results for input(s): SEDRATE in the last 22016 hours. Recent Labs Component Name 08/15/17 0348 08/09/17 0745 08/05/17 0445 CRP 4.1* 32.0* 14.4* No results for input(s): CK in the last 48154 hours. .No results for input(s): VANCOTROUGH, VANCOPEAK, VANCSERIES in the last 23366 hours. Invalid input(s): VANCORAND Recent Labs Component [...] 0600 222 lb 9.6 oz (101 kg) [facility] 02/02/192124 208 lb (94.3 kg) [...] results for input(s): PREALBUMIN in the last 42545 hours. No data found. Skin/Wound: incision Last [...] results for input(s): CDIFFTOXINAB in the last 98654 hours. No results for input(s): SEDRATE in the last 73427 hours. Recent Labs Component Name 08/15/17 0348 08/09/17 0745 08/05/17 0445 CRP 4.1* 32.0* 14.4* No results for input(s): CK in the last 78604 hours. .No results for input(s): VANCOTROUGH, VANCOPEAK, VANCSERIES in the last 92660 hours. Invalid input(s): VANCORAND Recent Labs Component [...] Dhillon MD - 02/14/2019 6:30 AM CDT [facility] Orthopedic Surgery Daily Progress Note José Miguel Keys, 68 year old, male : 1950 CSN: [id number] Primary Care Physician: Briana Medeiros MD - [...] fax results to clinic ( [facility], [phone] for [facility]) ?? Keep wound clean and [...] week visit with Dr. Alexander ?? Call [phone] to schedule the first follow-up appointment with [...] results for input(s): MAGMGDL in the last 16100 hours. Recent Labs Component Name 09/19/17 0243 [...] q24h ?? warfarin (COUMADIN) dose per pharmacy [facility], Other, QDay 1700 ?? zinc sulfate (ZINCATE) [...] DC to facility tomorrow Poncho Cisneros MD [facility] Hospitalist 02/13/2019 7:45 PM * Efrain Rojas, RN - 02/13/2019 6:03 PM CDT Shift summary: patient up amb with walker, CHG bath done, appetite fair, PICC Line placed for IVABX, taught PICC line care, how to flush and supervisor front ivabx . Patient thinking about taking patient with home health. demonstrated how to flush and disconnect pt from iv pump. Call light and phone within reach. * Fay Otero, SKI PATROL - 02/13/2019 3:09 PM CDT Spoke with admission coordinator for [facility] who verified that the facility has a male bed available. Pt medical record faxed to [facility]. SKI PATROL will continue to follow and coordinate d/c. CHRIS Herrera 02/13/2019 3:12 PM [phone] * Christina Hamilton, PT - 02/13/2019 1:23 PM CDT Attempted to see pt for PT treatment. Unable to complete visit secondary to patient having PICC line placed. Will attempt another time. Christina Hamilton, PT [phone] * Fay Otero, SKI PATROL - 02/13/2019 11:37 AM CDT Spoke with admission coordinator for [facility] facility does not have a male bed available. Message left for admission coordinator for [facility] re: bed availability. SKI PATROL will continue to follow and coordinate d/c. CHRIS Herrera 02/13/2019 11:43 AM [phone] * Zbigniew Sandoval RN - 02/13/2019 8:23 [...] results for input(s): DDIMERMGL in the last 29295 hours. Warfarin Dose History Date INR Dose [...] and redness of the region.He went to [facility] and workup there including CT of the right hip revealed suspected abscess for which he was transferred here for further evaluation by [facility] Orthopedics. Has history of MRSA bacteremia and [...] postop day 7. MSK: DELICIA Macias. Nl stove refinisher appreciated. No cce, no erythema of surgical [...] wishes, and discussion with multidisciplinary care team (aviation project manager, SKI PATROL, CSN, Therapy services, Pharmacy, and hospital wellness coordinator) the current recommendation for the most appropriate discharge destination at this time is: Inpt rehab vs Home Anticipated discharge date: Possible discharge tomorrow 02/13. Needs PICC line and prison/insurance authorization Disposition: Due to medical issues in [...] and phone within reach. * Fay Otero, SKI PATROL - 02/12/2019 3:23 PM CDT Case reviewed with RN/CM during afternoon huddle. PER huddle pt spouse requesting SNF placement at [facility] or [facility]. Message left for admission coordinators for [facility] and [facility] re: bed availability. SKI PATROL will continue to follow and coordinate d/c. CHRIS Herrera 02/12/2019 3:26 PM [phone] * Maria Guadalupe Roberts RN - 02/12/2019 2:18 PM CDT Case Management Progress Note Anticipated level of care at discharge: Retirement - Skilled Facility Anticipated Discharge Date: Anticipated Discharge Date: 02/13/19 Transportation at Discharge: Family/Ambulance Comments: As documented by CM on 02/09, Spouse has chosen [facility] in [place], [place], or [facility] in [place]. Have asked Fay PEREZ to initiate referrals for tentative discharge tmrw. Attempting to reach spouse to verify this remains the discharge plan. Maria Guadalupe Roberts RN [facility] X [phone] * Cheryl Mccoy PharmD - [...] results for input(s): DDIMERMGL in the last 74803 hours. Warfarin Dose History Date INR Dose [...] PharmD 02/12/2019 2:11 PM * Fay Otero, SKI PATROL - 02/12/2019 12:24 PM CDT Case reviewed during huddle and MDR. RN/CM to f/u with pt spouse re:: SNF placement. SKI PATROL will continue to follow and coordinate d/c. CHRIS Herrera 02/12/2019 12:25 PM [phone] * Christina Hamilton, PT - 02/12/2019 11:14 [...] their diet. Written information was given using [facility] Vit K & Anticoagulant Therapy handout. [...] results for input(s): DDIMERMGL in the last 83572 hours. Warfarin Dose History Date INR Dose [...] tub soaks. No scrubbing around incision. ?? [place] to be removed at [address] Alexander ?? Call [phone] to schedule the first follow-up appointment with [...] and redness of the region.He went to [facility] and workup there including CT of the right hip revealed suspected abscess for which he was transferred here for further evaluation by [facility] Orthopedics. Has history of MRSA bacteremia and [...] postop day 7. MSK: DELICIA Macias. Nl stove refinisher appreciated. No cce, no erythema of surgical [...] wishes, and discussion with multidisciplinary care team (aviation project manager, SKI PATROL, CSN, Therapy services, Pharmacy, and hospital wellness coordinator) the current recommendation for the most [...] this date. Standing posture flexed, with strong stove refinisher on the walker. Pt required v/c for [...] Recommendations: Inpatient Rehab Karina Davies, PT [phone] * Eula Verma RCP - 02/10/2019 3:02 PM CDT Problem: Impaired Gas Exchange Goal: Resp rate/effort will be within specified limits 02/10/2019 1504 by Eula Verma, Respiratory Care Practitioner Outcome: Ongoing Note: José Miguel continues on scheduled nebulizer tx. Lungs sound diminished this shift. Will continue to monitor and wean as able * Alberto Shell MD - 02/10/2019 11:30 AM CDT [facility] Orthopedic Surgery Daily Progress Note José Miguel Keys, 68 year old, male : 1950 CSN: [id number] Primary Care Physician: Briana Medeiros MD - [...] tub soaks. No scrubbing around incision. ?? [place] to be removed at [address] Alexander ?? Call [phone] to schedule the first follow-up appointment with [...] and redness of the region.He went to [facility] and workup there including CT of the right hip revealed suspected abscess for which he was transferred here for further evaluation by [facility] Orthopedics. Has history of MRSA bacteremia and epidural abscess as well. He is community dwelling living with his . Current symptoms: BM yesterday, incontinence noted. Pain is better. Confusion is better,answers faster as well. Nauseated still. No f/c overnight. Significantly fluid positive post op.([phone]). PE: Filed Vitals: 02/09/19 1635 02/09/19 2152 [...] approp. No Si/Hi Skin: wound c/d/i. MSK: MASANUJ Bilat. Nl stove refinisher appreciated. No cce, no erythema of surgical [...] wishes, and discussion with multidisciplinary care team (aviation project manager, SKI PATROL, CSN, Therapy services, Pharmacy, and hospital wellness coordinator) the current recommendation for the most appropriate discharge destination at this time is: Half-Way Facility (SNF) vs Home with HH Anticipated [...] per spouse Sathya Cheney , PT Ascom [phone] If this is the last Physical Therapy [...] and redness of the region.He went to [facility] and workup there including CT of the right hip revealed suspected abscess for which he was transferred here for further evaluation by [facility] Orthopedics. Has history of MRSA bacteremia and [...] Skin: wound c/d/i. MSK: DELICIA Colleen. Nl stove refinisher appreciated. No cce, no erythema of surgical [...] wishes, and discussion with multidisciplinary care team (aviation project manager, SKI PATROL, CSN, Therapy services, Pharmacy, and hospital wellness coordinator) the current recommendation for the most appropriate discharge destination at this time is: Half-Way Facility (SNF) vs Home with HH Anticipated [...] behind pt. Pt becomes anxious with sitting, [place] assist to reach hand back to chair, [...] prefer to be closer to home in [place] which wouldrequire SNF placement. OT Discharge Recommendations: Inpatient Rehab;Half-Way Facility If this is the last Occupational Therapy visit, this serves as the discharge summary. Autumn Graham, OT * Fay Otero, SKI PATROL - 02/09/2019 3:09 PM CDT Case reviewed with RN/CM during afternoon huddle. Per huddle pt spouse requesting SNF placement at [facility] (1st choice) and [facility] (2nd choice). Per huddle pt scheduled for a procedure next Tuesday. SKI PATROL will refer pt to these facilities once his closer to d/c. Fay Otero, SKI PATROL [phone] * Sathya Cheney, PT - 02/09/2019 2:44 [...] level rehab. Sathya Cheney , PT Ascom [phone] If this is the last Physical Therapy [...] - 02/09/2019 2:20 PM CDT Patient from [place], lives with his . Patient s/p debridement infected R hip prosthesis. Delayed primary closure, wound vac til closure; 4-5 days. Continue iv anbx, await new cx. Patient is traditional medicaire. Max assist x2 with mobility. Eligible for skilled rehab. Andra Oneill cm, spoke to re facilities in [place] for skill rehab. requested [facility] in [facility]. Anticipate discharge next week. Back up facility, if needed, [facility]. Will inform sw Fay chen rn/cm [phone] * Fay Otero, SKI PATROL - 02/09/2019 11:26 AM CDT Case reviewed during morning huddle. RN/CM to discuss d/c options with pt spouse. SKI PATROL will continueto follow and coordinate d/c. CHRIS Herrera [phone] * Sathya Cheney PT - 02/09/2019 11:14 AM CDT Attempted to see patient again for physical therapy. Unable to complete visit due to patient still feeling nauseated Will attempt to see patient at a later time/date as indicated Sathya Cheney PT ascom [phone] * Sathya Cheney PT - 02/09/2019 9:13 AM CDT Attempted to see patient for physical therapy. Unable to complete visit due to patient vomiting andnurse requesting not to see at this time. Will attempt to see patient at a later time/date as schedule. Sathya Cheney, PT ascom #[phone] * Leah Franklin RCP - 02/09/2019 7:49 AM CDT Mr Kyes received his 0800, 1400 treatments; he remains [...] Shell MD - 02/08/2019 2:04 PM CDT [facility] Orthopedic Surgery Postoperative Check José Miguel Keys, 68 year old, male : 1950 CSN: [id number] Admitted: 02/02/2019 8:57 PM Subjective Nausea/vomiting: none [...] A1c indicates very good blood sugar control PATIENT CARE ASSISTANT. Vitamin B12, zinc and vitamin C supplements [...] Pain affecting intake: No Estimated Needs: KCAL: 1981-9688(20-25 kcal/kg bw) Protein (g): 94-117(1.2-1.5 gm/kg iw) [...] results for input(s): PREALBUMIN in the last 97037 hours. No data found. PERTINENT MEDICATIONS FOR [...] 12:41 PM Ascom [phone] * Fay Otero, SKI PATROL - 02/08/2019 11:16 AM CDT Case reviewed during morning huddle. Pt currently in OR today for I&D Right hip, possible component exchange, possible revision arthroplasty. SKI PATROL will continue to follow and assist with [...] and redness of the region.He went to [facility] and workup there including CT of the right hip revealed suspected abscess for which he was transferred here for further evaluation by [facility] Orthopedics. Has history of MRSA bacteremia and [...] rashes, petechia, purpura. MSK: FRANSANJU Bilat. Nl stove refinisher appreciated. Recent Labs Component Name 02/08/19 0256 [...] wishes, and discussion with multidisciplinary care team (aviation project manager, SKI PATROL, CSN, Therapy services, Pharmacy, and hospital wellness coordinator) the current recommendation for the most appropriate discharge destination at this time is: Half-Way Facility (SNF) vs Home with HH Anticipated [...] from the original note were not included. [facility] Orthopedic Surgery Daily Progress Note 02/08/2019 José Miguel Keys, 68 year old, male : 1950 CSN: [id number] - Admission Date/Time: 02/02/2019 8:57 PM -Today's [...] Procedure Component Value - Date/Time CULTURE ANAEROBE [[id number]] (Normal) Collected: 02/04/19 1129 Lab Status: Preliminary result Specimen: Micro from Hip Updated: 02/06/19 0634 Culture Culture in progress Narrative: Surgical Description: Right Hip CULTURE WOUND+GRAM STAIN [[id number]] (Abnormal) (Susceptibility) Collected: 02/04/191128 Lab Status: Final [...] Susceptible 1 ug/mL UMESH Final CULTURE ANAEROBE [[id number]] (Normal) Collected: 02/04/191128 Lab Status: Preliminary result Specimen: Micro from Hip Updated: 02/06/19 0634 Culture Culture in progress Narrative: Surgical Description: Right Hip CULTURE TISSUE+GRAM STAIN [[id number]] (Abnormal) (Susceptibility) Collected: 02/04/191128 Lab Status: Final [...] Susceptible 1 ug/mL UMESH Final CULTURE BLOOD [[id number]] Collected: 02/02/192237 Lab Status: Final result Specimen: Blood Peripheral Updated: 02/08/19230 Culture No growth day 5 CULTURE BLOOD [[id number]] Collected: 02/02/192237 Lab Status: Final result Specimen: [...] mg by mouth once daily nystatin (MYCOSTATIN) 283851 UNIT/GM powder APPLY TO AFFECTED AREA TWICE [...] mouth once daily vitamin D, ergocalciferol, (DRISDOL) 07033 UNITS capsule Take 50,000 Units by mouth [...] may change. Sathya Cheney , PT Ascom [phone] If this is the last Physical Therapy [...] living situation Sathya Cheney , PT Ascom [phone] If this is the last Physical Therapy [...] appropriate discharge plan. Maria Guadalupe Roberts RN [facility] X [phone] * Fay Otero SKI PATROL - 02/07/2019 11:57 AM CDT Pt scheduled for OR on 02/08/19. PER rounds pt may need some level of rehab. SKI PATROL will continue to follow and coordinate d/c. [...] surgical procedure Sathya Cheney , PT Ascom [phone] If this is the last Physical Therapy [...] Shell MD - 02/07/2019 9:41 AM CDT [facility] Orthopedic Surgery Daily Progress Note José Miguel Keys, 68 year old, male : 1950 CSN: [id number] Primary Care Physician: Briana Medeiros MD - [...] and redness of the region.He went to [facility] and workup there including CT of the right hip revealed suspected abscess for which he was transferred here for further evaluation by [facility] Orthopedics. Has history of MRSA bacteremia and [...] 98% 96% 98% 98% Weight: Height: I/O/T/U: 3358/1075/2283/[id number]. Gen:ASA, mild distress. Does not appear in pain. Oriented to self, month HEENT: NCAT CV: RRR, No m/g/r, no ectopy Carol: No adventitial sounds or wheezes, basilar crackles improved with cough Abd: benign Neuro: nonfocal; proprioception, gait not tested. Reflexes intact Psych: approp. No Si/Hi Skin: nl, senescent changes. No rashes, petechia, purpura. MSK: DELICIA Bilbipin. Nl stove refinisher appreciated. Recent Labs Component Name 02/07/1940802/06/1941802/05/19 0238 [...] wishes, and discussion with multidisciplinary care team (aviation project manager, SKI PATROL, CSN, Therapy services, Pharmacy, and hospital wellness coordinator) the current recommendation for the most appropriate discharge destination at this time is: Half-Way Facility (SNF) Anticipated discharge date: TBD Disposition: [...] returns home Sathya Cheney , PT Ascom [phone] If this is the last Physical Therapy [...] living situation Sathya Cheney , PT Ascom [phone] If this is the last Physical Therapy [...] living situation Sathya Cheney , PT Ascom [phone] If this is the last Physical Therapy [...] Chief Complaint: Right hip pain swelling Insurance: Medicare/[employer] Family Support (name and phone): Extended Emergency Contact Information Primary Emergency Contact: Trinity Keys Address: [address] [place] [address] [place] [address] [facility] Mobile Relation: Spouse Wet End Supervisor needed? No Anticipated Discharge Date: 02/15/19 Anticipated [...] at discharge will need order entered in [employer] If patient requires HHC at discharge, he/she requests: patient choice Comments: s/p right hip irrigation and debridement, placement of antibiotic beads, and wound vacuumapplication , IV abts, pt/ot, pain control. BNA: 11 SPACE BUYER: 7 Will continue to follow. For any questions or needs please contact: Foam Gun Operator Name/Phone number: Maria Guadalupe Roberts RN [facility] X [phone], If this is the last disease case manager rnsales development manager this note serves as discharge summary * Fay Otero MSW - 02/06/2019 11:33 AM CDT Case reviewed during MDR rounds. Pt scheduled for OR on 02/08/19. PER rounds pt may need some level of rehab. SKI PATROL will continue to follow and coordinate d/c. * Blaire Meek MD - 02/06/2019 7:20 AM CDT 02/06/2019 7:20 AM Admitted: 02/02/2019 8:57 PM HD: 4 CC: Right hip pain Summary:??68 year old??white male with hx CAD, atrial fibrillation, prior DVT, COPD, cirrhosis, OSAwho presents with 1 week of right hip pain with associated swelling and redness of the region.He went to [facility] and workup there including CT of the right hip revealed suspected abscess for which he was transferred here for further evaluation by [facility]. Has history of MRSA bacteremia and [...] rashes, petechia, purpura. MSK: DELICIA Bilat. Nl stove refinisher appreciated. Recent Labs Component Name 02/06/19 04102/05/198 [...] wishes, and discussion with multidisciplinary care team (aviation project manager, SKI PATROL, CSN, Therapy services, Pharmacy, and hospital wellness coordinator) the current recommendation for the most appropriate discharge destination at this time is: [facility] ([facility]) Anticipated discharge date: TBD Disposition: Due to medical issues in the assessment and plan, continued hospitalization will be required. Blaire Meek MD Note is dictated utilizing voice recognition software. Unfortunately this leads to occasional typographical errors. I apologize in advance if the situation occurs. If questions occur please contact me for clarification. * Larry Alexander MD - 02/06/2019 6:39 AM CDT [facility] Orthopedic Surgery Daily Progress Note José Miguel Keys, 68 year old, male : 1950 CSN: [id number] Primary Care Physician: Briana Medeiros MD - [...] Admit date: 02/02/2019 Admitting Physician: Lilly Jurado APRN-RECYCLING ASSISTANT Attending Physician: Michelle Pratt MD IP/Observation: Inpatient [...] vision loss, dizziness, dysuria. He went to [facility] and workup thereincluding CT of the right hip revealed suspected abscess for which he was transferred here for further evaluation by [facility]. The patient was given IV vanc and cefepime and pain meds and transferred here for evaluation by [facility]. Of note the patient had multiple [...] results for input(s): SEDRATE in the last 71004 hours. Recent Labs Component Name 08/15/17 0348 08/09/17 0745 08/05/17 0445 CRP 4.1* 32.0* 14.4* No results for input(s): TROPONIN in the last 65262 hours. No results for input(s): DDIMER in the last 48230 hours. Recent Labs Component Name 07/24/17 0508 [...] any specific number. He was seen at [facility] yesterday and found to be tachycardic and so was started on broad spectrum antibiotics. They also obtained a pelvis xray and CT of right femur He notably has had bilateral ARNALDO performed with the right performed in 2005 and the left in 2010. No complaints on the left ARNALDO. His primary surgeon has since moved to [place] according to the patient. Dr. Amos at [facility] did not feel comfortable managing this patient. 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 He also has afib for which he is on xarelto and a history of a IA. He has VALENTINA and wears a CPAP [...] Sathya Cheney, PT x [phone] * Sathya Cehney, PT - 02/05/2019 5:50 PM CDT Problem: [...] min a Outcome: Ongoing * Jonny Reynolds, [facility] - 02/05/2019 8:55 AM CDT Vancomycin Per [...] Procedure Component Value - Date/Time CULTURE ANAEROBE [[id number]] Collected: 02/04/191128 Lab Status: In process Specimen: Micro from Hip Updated: 02/04/19 1208 CULTURE WOUND+GRAM STAIN [[id number]] Collected: 02/04/191128 Lab Status: Preliminary result Specimen: Micro from Hip Updated: 02/04/192226 Gram Stain Heavy Polymorphonuclear cells Moderate Red blood cells No organisms seen Narrative: Surgical Description: Right Hip CULTURE ANAEROBE [[id number]] Collected: 02/04/191128 Lab Status: In process Specimen: Micro from Hip Updated: 02/04/19 1208 CULTURE TISSUE+GRAM STAIN [[id number]] Collected: 02/04/191128 Lab Status: Preliminary result Specimen: Micro from Hip Updated: 02/04/192237 Gram Stain Moderate Polymorphonuclear cells Heavy Red blood cells No organisms seen Narrative: Surgical Description: Right Hip CULTURE BLOOD [[id number]] Collected: 02/02/192237 Lab Status: Preliminary result Specimen: Blood Peripheral Updated: 02/05/19 0230 Culture No growth CULTURE BLOOD [[id number]] Collected: 02/02/192237 Lab Status: Preliminary result Specimen: [...] pain med is needed. 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 He went to [facility] and workup thereincluding CT of the right hip revealed suspected abscess for which he was transferred here for further evaluation by [facility]. The patient was given IV vanc and cefepime and pain meds and transferred here for evaluation by [facility]. Of note the patient had multiple [...] results for input(s): SEDRATE in the last 09610 hours. Recent Labs Component Name 08/15/17 0348 08/09/17 0745 08/05/17 0445 CRP 4.1* 32.0* 14.4* No results for input(s): TROPONIN in the last 22098 hours. No results for input(s): DDIMER in the last 70704 hours. Recent Labs Component Name 07/24/17 0508 [...] Procedure Component Value - Date/Time CULTURE BLOOD [[id number]] Collected: 02/02/198 Lab Status: Preliminary result Specimen: Blood Peripheral Updated: 02/04/19 0230 Culture No growth 24 hours CULTURE BLOOD [[id number]] Collected: 02/02/19 2238 Lab Status: Preliminary result [...] by mouth once daily ??? nystatin (MYCOSTATIN) 742903 UNIT/GM powder APPLY TO AFFECTED AREA TWICE [...] once daily ??? vitamin D, ergocalciferol, (DRISDOL) 98994 UNITS capsule Take 50,000 Units by mouth [...] score: 6.0 %: 30-day risk of , IA, or cardiac arrest EKG no new changes, [...] vision loss, dizziness, dysuria. He went to [facility] and workup thereincluding CT of the right hip revealed suspected abscess for which he was transferred here for further evaluation by [facility]. The patient was given IV vanc and cefepime and pain meds and transferred here for evaluation by [facility]. Of note the patient had multiple [...] results for input(s): SEDRATE in the last 46564 hours. Recent Labs Component Name 08/15/17 0348 08/09/17 0745 08/05/17 0445 CRP 4.1* 32.0* 14.4* No results for input(s): TROPONIN in the last 06607 hours. No results for input(s): DDIMER in the last 11938 hours. Recent Labs Component Name 07/24/17 0508 [...] Michelle Pratt MD Hospitalist * Jonny Reynolds, [facility] - 02/03/2019 3:51 AM CDT Vancomycin Dosing [...] vision loss, dizziness, dysuria. He went to [facility] and workup thereincluding CT of the right hip revealed suspected abscess for which he was transferred here for further evaluation by [facility]. The patient was given IV vanc and cefepime and pain meds and transferred here for evaluation by [facility]. Of note the patient had multiple [...] by mouth once daily ??? nystatin (MYCOSTATIN) 964991 UNIT/GM powder APPLY TO AFFECTED AREA TWICE [...] once daily ??? vitamin D, ergocalciferol, (DRISDOL) 48525 UNITS capsule Take 50,000 Units by mouth [...] hip arthroplasty infection Referring Physcian: Lilly Jurado APRN-RECYCLING ASSISTANT Name: José Miguel Keys Age: [age] year old [birth year] The patient is a 68 y/o man with h/o MRSA sepsis treated at [facility] last year, complicated with epidural abscess. He [...] results for input(s): CDIFFTOXINAB in the last 31237 hours. No results for input(s): SEDRATE in the last 83070 hours. Recent Labs Component Name 08/15/17 0348 08/09/17 0745 08/05/17 0445 CRP 4.1* 32.0* 14.4* No results for input(s): CK in the last 01548 hours. .No results for input(s): VANCOTROUGH, VANCOPEAK, VANCSERIES in the last 37187 hours. Invalid input(s): VANCORAND Recent Labs Component [...] CDTAssociated Order(s): IP CONSULT TO PASTORAL CARE Manager Administrative responded to consult for prayer by visiting with Pt and family and offering prayer and spiritual care support. * Larry Alexander MD - 02/03/2019 5:33 AM CDTAssociated Order(s): IP CONSULT TO ORTHOPEDIC SURGERY Orthopaedic Surgery Consult Note José Miguel Keys 1950 [id number] K Ney Medeiros MD Date of service: [...] any specific number. He was seen at [facility] yesterday and found to be tachycardic and so was started on broad spectrum antibiotics. They also obtained a pelvis xray and CT of right femur He notably has had bilateral ARNALDO performed with the right performed in 2005 and the left in 2010. No complaints on the left ARNALDO. His primary surgeon has since moved to [place] according to the patient. Dr. Amos at [facility] did not feel comfortable managing this patient. 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 He also has afib for which he is on xarelto and a history of a IA. 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 nystatin (MYCOSTATIN) 984709 UNIT/GM powder APPLY TO AFFECTED AREA TWICE [...] once daily ??? vitamin D, ergocalciferol, (DRISDOL) 29754 UNITS capsule Take 50,000 Units by mouth [...] hip scar Distal DF/PF ankle/toesR LE + [facility] SLR Xrays - R femur/hip [...] cultures and intraoperative a ppearance, NPO at mi, hold eliquis, pain control, abx per ID documented in this encounter OR Notes * Operative - Larry Alexander MD - 02/08/2019 3:01 PM CDT [facility] Operative Report PATIENT NAME: JOSÉ MIGUEL KEYS MR#: [id number] DATE OF : 1950 CSN: [id number] DATE OF ADMISSION: 02/02/2019 ROOM#: [facility] INTRAOP DATE OF OPERATION: 02/08/2019 PREOPERATIVE [...] complex surgical wound. SURGEON: Frandy Alexander M.D. BOOSTER PLANT OPERATOR: Alberto Wakefield MD. ANESTHESIA: General. INDICATIONS FOR PROCEDURE: The patient is a 68-year-old man, who has had bilateral hip arthroplasties by another surgeon, who became infected and was transferred to [facility] for a tertiary level of care. [...] ALEXANDER M.D. DICTATED FOR: PERRY/GURWINDER JOB ID: [id number] Operative Report * Brief Op Note - Alberto Shell MD - 02/08/2019 11:51 AM CDT Brief Op Note Procedure: REVISION HIP ARTHROPLASTY BOTH COMPONENT, EXCISION BURSA (BURSECTOMY) TROCHANTERIC/HIP, CLOSURE PRIMARY DELAYED/SECONDARY (ANY AREA) Patient Name: José Miguel Keys Date of Service: 02/08/2019 Pre-Op Diagnosis: Infected Right ARNALDO, cultures positive for MRSA Post-Op Diagnosis: same Surgeon(s) and Role: * Larry Alexander MD - Primary Older Adult Social Work Specialist(s): Alberto Shell MD Anesthesia Type: general Complications: none Findings: Well fixed femoral stem EBL: 400 mL Urine Output : 250 mL IV Fluid Intake: Please see anesthesia notes Drains: GJ Tube Percutaneous Endoscopic Gastrostomy Abdomen;Left (Active) Specimen(s): none Alberto Shell MD * Operative - Larry Alexander MD - 02/04/2019 12:19 PM CDT [facility] Operative Report PATIENT NAME: JOSÉ MIGUEL KEYS MR#: [id number] DATE OF : 1950 CSN: [id number] DATE OF ADMISSION: 02/02/2019 ROOM#: [id number] DATE OF OPERATION: 02/04/2019 PREOPERATIVE DIAGNOSIS: Infected right total hip arthroplasty. POSTOPERATIVE DIAGNOSIS: Infected right total hip arthroplasty. PROCEDURES: 1. Irrigation and debridement with arthrotomy, infected right hip Arthroplasty. 2. Irrigation and debridement of infected right hip trochanteric bursa 2. Wound VAC application, right hip. SURGEON: Frandy Alexander M.D. BOOSTER PLANT OPERATOR: Jason Blackburn MD. ANESTHESIA: General. INDICATION FOR [...] ALEXANDER M.D. DICTATED FOR: PERRY/GURWINDER JOB ID: [id number] Operative Report * Brief Op Note - Jason Blackburn MD - 02/04/2019 11:56 AM CDT Brief Op Note Procedure: RIGHT HIP IRRIGATION AND DEBRIDEMENT, WOUND VAC PLACEMENT Patient Name: José Miguel Keys Date of Service: 02/04/2019 Pre-Op Diagnosis: right infected ARNALDO Post-Op Diagnosis: same Surgeon(s) and Role: * Larry Alexander MD - Primary Older Adult Social Work Specialist(s): Jason Blackburn MD Anesthesia Type: general Complications: none Findings: Gross purulence with deep tracks. EBL: minimal blood loss Drains: GJ Tube Percutaneous Endoscopic Gastrostomy Abdomen;Left (Active) Specimen(s): tissue and fluid cultures Jason Blackburn MD documented in this encounter Plan of Treatment Upcoming Encounters Date Type Department Care Team (Late st Contact Info) Description 07/09/2024 12:30 PM CELL LINER Office Visit [facility] - GI [address] [place] [address], [facility] [place] [id number] Twin Miller MD [address] [place] [address] [place] [address] 09/19/2024 2:00 PM CDT Office Visit [facility] - Orthopedic Surgery [facility] [place] [address] Larry Alexander MD [address] [facility] [address] [place] [address] Scheduled Orders Name Type Priority Associated Diagnoses [...] NOCTURNAL 02 Routine 02/09/2019 12:[address] SECD CLOS SURG WND EXTEN/COMPLIC 02/08/2019 10:34 [...] STAT 02/04/2019 11:29 AM CDT Diagnosis unknown CT NEG PRESS WND TX PER SESS; TOT SURF </= 50 SQ CM 02/04/2019 10:12 AM CDT Special Needs Shaheen Table, cement with gentamicinC Arm [facility] [phone] CT INCIS/DRAIN PELVIS/HIP,DEEP ABSCESS 02/04/2019 10:12 AM CDT Special Needs Shaheen Table, cement with gentamicinC Arm RESIDENT- Jason [phone] GLUCOSE - POINT OF CARE Routine 02/04/2019 [...] - 20.0 ug/mL 02/15/2019 5:16 PM CDT [facility] Blood BLOOD SPECIMEN / Unknown Venipuncture / Unknown 02/15/2019 4:50 PM CDT 02/15/2019 4:55 PM CDT Poncho Cisneros MD LAB - CHEMISTRY ROYCE KLINE [facility] [address] [place] [address] * (ABNORMAL) PT-INR (02/15/2019 3:07 AM CDT) PT 18.9(H) 9.5 - 11.6 sec 02/15/2019 4:09 AM CDT [facility] INR 1.9(H) 0.9 - 1.1 02/15/2019 4:09 AM [facility] Blood BLOOD SPECIMEN / Unknown Lab Venipuncture / Unknown 02/15/2019 3:07 AM CDT 02/15/2019 3:51 AM CDT [facility] - 02/15/2019 4:09 AM CDT Conventional Warfarin Anticoagulant Therapy: INR Reference Range: ??2.0-3.0 Intensive Warfarin Anticoagulant Therapy: INR Reference Range: ? 2.5-3.5 Blaire Meek MD LAB - COAGULATION OR DERABLES [facility] [address] [place], [place] [id number] * (ABNORMAL) BASIC METABOLIC PANEL (CALCIUM TOTAL) (02/15/2019 3:07 AM CDT) Glucose 98 74 - 106 mg/dL 02/15/2019 4:27 AM [facility] Sodium 141 136 - 145 mmol/L 02/15/2019 4:27 AM [facility] Potassium 3.7 3.5 - 5.1 mmol/L 02/15/2019 4:27 AM [facility] Chloride 106 98 - 107 mmol/L 02/15/2019 4:27 AM [facility] CO2 28 23 - 31 mmol/L 02/15/2019 4:27 AM [facility] Calcium 8.6 8.4 - 10.2 mg/dL 02/15/2019 4:27 AM [facility] Anion Gap 7(L) 8 - 16 mmol/L 02/15/2019 4:27 AM [facility] BUN 17 8.4 - 25.7 mg/dL 02/15/2019 4:27 AM [facility] Creatinine 1.02 0.73 - 1.18 mg/dL 02/15/2019 4:27 AM [facility] eGFR by MDRD >60 mL/min/1.7 3m2 02/15/2019 4:27 AM [facility] eGFR by MDRD >60 mL/min/1.7 3m2 02/15/2019 4:27 AM [facility] Blood BLOOD SPECIMEN / Unknown Lab Venipuncture / Unknown 02/15/2019 3:07 AM CDT 02/15/2019 3:51 AM CDT Blaire Meek MD LAB - CHEMISTRY ROYCE KLINE [facility] [address] [place] [address] * (ABNORMAL) CBC W AUTO DIFFERENTIAL (02/15/2019 3:07 AM CDT) WBC 8.5 4.4 - 10.7 x10E9/L 02/15/2019 4:05 AM CDT [facility] WBC Corrected 02/15/2019 4:05 AM CDT [facility] RBC 2.74(L) 3.80 - 5.40 x10E12/L 02/15/2019 4:05 AM CDT [facility] Hemoglobin 7.4(L) 12.0 - 17.6 gm/dL 02/15/2019 4:05 AM [facility] Hematocrit 25.0(L) 35.2 - 51.7 % 02/15/2019 4:05 AM [facility] MCV 91.2 80.7 - 98.3 fl 02/15/2019 4:05 AM CDT [facility] MCH 27.0 26.7 - 34.0 pg 02/15/2019 4:05 AM CDT [facility] MCHC 29.6(L) 30.8 - 35.9 gm/dL 02/15/2019 4:05 AM CDT [facility] Platelet Count 284 153 - 416 x10E9/L 02/15/2019 4:05 AM [facility] RDW-CV 17.0(H) 12.1 - 14.9 % 02/15/2019 4:05 AM CDT [facility] MPV 11.5 9.4 - 12.9 fl 02/15/2019 4:05 AM CDT [facility] Neutrophils % 72.9 44.0 - 73.0 % 02/15/2019 4:05 AM CDT [facility] Lymphocytes % 8.7(L) 20.0 - 43.0 % 02/15/2019 4:05 AM CDT [facility] Monocytes % 8.0 5.0 - 13.0 % 02/15/2019 4:05 AM [facility] Eosinophils % 8.0(H) 0.0 - 6.0 % 02/15/2019 4:05 AM T [facility] Basophils % 0.5 0.0 - 2.0 % 02/15/2019 4:05 AM [facility] Immature Granulocytes 1.9(H) 0 - 1 % 02/15/2019 4:05 AM T [facility] Neutrophil Absolute 6.18 2.01 - 7.14 x10E9/L 02/15/2019 4:05 AM [facility] Lymphocytes Absolute 0.74(L) 1.07 - 3.94 x10E9/L 02/15/2019 4:05 AM [facility] Monocytes Absolute 0.68 0.26 - 1.07 x10E9/L 02/15/2019 4:05 AM [facility] Eosinophils Absolute 0.68(H) 0 - 0.47 x10E9/L 02/15/2019 4:05 AM [facility] Basophils Absolute 0.04 0 - 0.08 x10E9/L 02/15/2019 4:05 AM [facility] Immature Granulocytes Absolute 0.16(H) 0.00 - 0.06 x10E9/L 02/15/2019 4:05 AM [facility] nRBC Auto 0 /100 WBC 02/15/2019 4:05 AM [facility] Blood BLOOD SPECIMEN / Unknown Lab Venipuncture / Unknown 02/15/2019 3:07 AM CDT 02/15/2019 3:51 AM CDT Blaire Meek MD LAB - HEMATOLOGY ORD ERABLES [facility] [address] [place] [address] * (ABNORMAL) PT-INR (02/14/2019 3:46 AM CDT) PT 18.3(H) 9.5 - 11.6 sec 02/14/2019 5:27 AM CDT [facility] INR 1.9(H) 0.9 - 1.1 02/14/2019 5:27 AM CDT [facility] Blood BLOOD SPECIMEN / Unknown Lab Venipuncture / Unknown 02/14/2019 3:46 AM CDT 02/14/2019 4:16 AM CDT [facility] - 02/14/2019 5:27 AM CDT Conventional Warfarin Anticoagulant Therapy: INR Reference Range: ??2.0-3.0 Intensive Warfarin Anticoagulant Therapy: INR Reference Range: ? 2.5-3.5 Blaire Meek MD LAB - COAGULATION OR DERABLES [facility] [address] [place] [address] * (ABNORMAL) BASIC METABOLIC PANEL (CALCIUM TOTAL) (02/14/2019 3:46 AM CDT) Glucose 113(H) 74 - 106 mg/dL 02/14/2019 4:56 AM [facility] Sodium 141 136 - 145 mmol/L 02/14/2019 4:56 AM [facility] Potassium 3.7 3.5 - 5.1 mmol/L 02/14/2019 4:56 AM [facility] Chloride 108(H) 98 - 107 mmol/L 02/14/2019 4:56 AM T [facility] CO2 28 23 - 31 mmol/L 02/14/2019 4:56 AM [facility] Calcium 8.4 8.4 - 10.2 mg/dL 02/14/2019 4:56 AM [facility] Anion Gap 5(L) 8 - 16 mmol/L 02/14/2019 4:56 AM T [facility] BUN 18 8.4 - 25.7 mg/dL 02/14/2019 4:56 AM T [facility] Creatinine 1.10 0.73 - 1.18 mg/dL 02/14/2019 4:56 AM [facility] eGFR by MDRD >60 mL/min/1.7 3m2 02/14/2019 4:56 AM [facility] eGFR by MDRD >60 mL/min/1.7 3m2 02/14/2019 4:56 AM CDT [facility] Blood BLOOD SPECIMEN / Unknown 02/14/2019 3:46 AM CDT 02/14/2019 4:15 AM CDT Blaire Meek MD LAB - CHEMISTRY ROYCE Lutz Organization Address City/State/ZIP Co de Phone Number [facility] [address] [place] [address] * (ABNORMAL) CBC W AUTO DIFFERENTIAL (02/14/2019 2:58 AM CDT) WBC 9.6 4.4 - 10.7 x10E9/L 02/14/2019 4:47 AM CDT [facility] WBC Corrected 02/14/2019 4:47 AM CDT [facility] RBC 2.80(L) 3.80 - 5.40 x10E12/L 02/14/2019 4:47 AM CDT [facility] Hemoglobin 7.7(L) 12.0 - 17.6 gm/dL 02/14/2019 4:47 AM CDT [facility] Hematocrit 26.0(L) 35.2 - 51.7 % 02/14/2019 4:47 AM CDT [facility] MCV 92.9 80.7 - 98.3 fl 02/14/2019 4:47 AM CDT [facility] MCH 27.5 26.7 - 34.0 pg 02/14/2019 4:47 AM CDT [facility] MCHC 29.6(L) 30.8 - 35.9 gm/dL 02/14/2019 4:47 AM CDT [facility] Platelet Count 288 153 - 416 x10E9/L 02/14/2019 4:47 AM CDT [facility] RDW-CV 17.0(H) 12.1 - 14.9 % 02/14/2019 4:47 AM CDT [facility] MPV 11.9 9.4 - 12.9 fl 02/14/2019 4:47 AM CDT [facility] Neutrophils % 71.9 44.0 - 73.0 % 02/14/2019 4:47 AM CDT [facility] Lymphocytes % 8.6(L) 20.0 - 43.0 % 02/14/2019 4:47 AM CDT [facility] Monocytes % 9.6 5.0 - 13.0 % 02/14/2019 4:47 AM CDT [facility] Eosinophils % 7.0(H) 0.0 - 6.0 % 02/14/2019 4:47 AM CDT [facility] Basophils % 0.5 0.0 - 2.0 % 02/14/2019 4:47 AM T [facility] Immature Granulocytes 2.4(H) 0 - 1 % 02/14/2019 4:47 AM CDT [facility] Neutrophil Absolute 6.90 2.01 - 7.14 x10E9/L 02/14/2019 4:47 AM CDT [facility] Lymphocytes Absolute 0.83(L) 1.07 - 3.94 x10E9/L 02/14/2019 4:47 AM CDT [facility] Monocytes Absolute 0.92 0.26 - 1.07 x10E9/L 02/14/2019 4:47 AM T [facility] Eosinophils Absolute 0.67(H) 0 - 0.47 x10E9/L 02/14/2019 4:47 AM T [facility] Basophils Absolute 0.05 0 - 0.08 x10E9/L 02/14/2019 4:47 AM T [facility] Immature Granulocytes Absolute 0.23(H) 0.00 - 0.06 x10E9/L 02/14/2019 4:47 AM T [facility] nRBC Auto 0 /100 WBC 02/14/2019 4:47 AM T [facility] Blood BLOOD SPECIMEN / Unknown Lab Venipuncture / Unknown 02/14/2019 2:58 AM CDT 02/14/2019 4:10 AM CDT Blaire Meek MD LAB - HEMATOLOGY ORD ERABLES [facility] [address] [place] [address] * XR CHEST FOR PICC PLMT (Place [...] - 11.6 sec 02/13/2019 5:20 AM CDT [facility] INR 1.3(H) 0.9 - 1.1 02/13/2019 5:20 AM CDT [facility] Blood BLOOD SPECIMEN / Unknown Lab Venipuncture / Unknown 02/13/2019 4:40 AM CDT 02/13/2019 4:56 AM CDT Narrative [facility] - 02/13/2019 5:20 AM CDT Conventional Warfarin Anticoagulant Therapy: INR Reference Range: ??2.0-3.0 Intensive Warfarin Anticoagulant Therapy: INR Reference Range: ? 2.5-3.5 Blaire Meek MD LAB - COAGULATION OR DERABLES [facility] [address] [place] [address] * BASIC METABOLIC PANEL (CALCIUM TOTAL) (02/13/2019 4:40 AM CDT) Glucose 106 74 - 106 mg/dL 02/13/2019 5:49 AM CDT [facility] Sodium 142 136 - 145 mmol/L 02/13/2019 5:49 AM CDT [facility] Potassium 3.6 3.5 - 5.1 mmol/L 02/13/2019 5:49 AM CDT [facility] Chloride 106 98 - 107 mmol/L 02/13/2019 5:49 AM CDT [facility] CO2 28 23 - 31 mmol/L 02/13/2019 5:49 AM CDT [facility] Calcium 8.6 8.4 - 10.2 mg/dL 02/13/2019 5:49 AM CDT [facility] Anion Gap 8 8 - 16 mmol/L 02/13/2019 5:49 AM CDT [facility] BUN 17 8.4 - 25.7 mg/dL 02/13/2019 5:49 AM CDT [facility] Creatinine 0.97 0.73 - 1.18 mg/dL 02/13/2019 5:49 AM CDT [facility] eGFR by MDRD >60 mL/min/1.7 3m2 02/13/2019 5:49 AM CDT [facility] eGFR by MDRD >60 mL/min/1.7 3m2 02/13/2019 5:49 AM CDT [facility] Blood BLOOD SPECIMEN / Unknown Lab Venipuncture / Unknown 02/13/2019 4:40 AM CDT 02/13/2019 4:56 AM CDT Blaire Meek MD LAB - CHEMISTRY ROYCE KLINE [facility] Organization Address City/State/ZIP Co de Phone Number [facility] [address] [place] [address] * (ABNORMAL) CBC W AUTO DIFFERENTIAL (02/13/2019 4:40 AM CDT) WBC 8.9 4.4 - 10.7 x10E9/L 02/13/2019 5:22 AM CDT [facility] WBC Corrected 02/13/2019 5:22 AM CDT [facility] RBC 2.73(L) 3.80 - 5.40 x10E12/L 02/13/2019 5:22 AM CDT [facility] Hemoglobin 7.6(L) 12.0 - 17.6 gm/dL 02/13/2019 5:22 AM CDT [facility] Hematocrit 25.1(L) 35.2 - 51.7 % 02/13/2019 5:22 AM CDT [facility] MCV 91.9 80.7 - 98.3 fl 02/13/2019 5:22 AM CDT [facility] MCH 27.8 26.7 - 34.0 pg 02/13/2019 5:22 AM CDT [facility] MCHC 30.3(L) 30.8 - 35.9 gm/dL 02/13/2019 5:22 AM [facility] Platelet Count 287 153 - 416 x10E9/L 02/13/2019 5:22 AM [facility] RDW-CV 16.7(H) 12.1 - 14.9 % 02/13/2019 5:22 AM [facility] MPV 11.7 9.4 - 12.9 fl 02/13/2019 5:22 AM [facility] Neutrophils % 70.3 44.0 - 73.0 % 02/13/2019 5:22 AM [facility] Lymphocytes % 8.8(L) 20.0 - 43.0 % 02/13/2019 5:22 AM [facility] Monocytes % 8.8 5.0 - 13.0 % 02/13/2019 5:22 AM [facility] Eosinophils % 8.1(H) 0.0 - 6.0 % 02/13/2019 5:22 AM [facility] Basophils % 0.6 0.0 - 2.0 % 02/13/2019 5:22 AM [facility] Immature Granulocytes 3.4(H) 0 - 1 % 02/13/2019 5:22 AM [facility] Neutrophil Absolute 6.25 2.01 - 7.14 x10E9/L 02/13/2019 5:22 AM [facility] Lymphocytes Absolute 0.78(L) 1.07 - 3.94 x10E9/L 02/13/2019 5:22 AM T [facility] Monocytes Absolute 0.78 0.26 - 1.07 x10E9/L 02/13/2019 5:22 AM [facility] Eosinophils Absolute 0.72(H) 0 - 0.47 x10E9/L 02/13/2019 5:22 AM T [facility] Basophils Absolute 0.05 0 - 0.08 x10E9/L 02/13/2019 5:22 AM CDT [facility] Immature Granulocytes Absolute 0.30(H) 0.00 - 0.06 x10E9/L 02/13/2019 5:22 AM CDT [facility] nRBC Auto 0 /100 WBC 02/13/2019 5:22 AM CDT [facility] Blood BLOOD SPECIMEN / Unknown Lab Venipuncture / Unknown 02/13/2019 4:40 AM CDT 02/13/2019 4:56 AM CDT Blaire Meek MD LAB - HEMATOLOGY ORD ERABLES Performing Organization Address City/[facility]/ZIP Co de Phone Number [facility] [address] [place] [phone] * (ABNORMAL) VANCOMYCIN LEVEL TROUGH (02/12/2019 9:22 AM CDT) Vancomycin Trough 22.6(H) 10.0 - 20.0 ug/mL 02/12/2019 10:04 AM CDT [facility] Blood BLOOD SPECIMEN / Unknown Lab Venipuncture / Unknown 02/12/2019 9:22 AM CDT 02/12/2019 9:32 AM CDT Blaire Meek MD LAB - CHEMISTRY ORDE RABANGELIA Performing Organization Address City/[facility] Co de Phone Number [facility] [address] [place] [address] * PT-INR (02/12/2019 3:15 AM CDT) PT 11.0 9.5 - 11.6 sec 02/12/2019 4:07 AM CDT [facility] INR 1.0 0.9 - 1.1 02/12/2019 4:07 AM CDT [facility] Blood BLOOD SPECIMEN / Unknown Lab Venipuncture / Unknown 02/12/2019 3:15 AM CDT 02/12/2019 3:43 AM CDT Narrative [facility] - 02/12/2019 4:07 AM CDT Conventional Warfarin Anticoagulant Therapy: INR Reference Range: ??2.0-3.0 Intensive Warfarin Anticoagulant Therapy: INR Reference Range: ? 2.5-3.5 Blaire Meek MD LAB - COAGULATION OR DERABLES [facility] [address], [place] [id number] * (ABNORMAL) BASIC METABOLIC PANEL (CALCIUM TOTAL) (02/12/2019 3:15 AM CDT) [facility] Glucose 114(H) 74 - 106 mg/dL 02/12/2019 4:19 AM CDT [facility] Sodium 139 136 - 145 mmol/L 02/12/2019 4:19 AM CDT [facility] Potassium 3.5 3.5 - 5.1 mmol/L 02/12/2019 4:19 AM CDT [facility] Chloride 105 98 - 107 mmol/L 02/12/2019 4:19 AM CDT [facility] CO2 27 23 - 31 mmol/L 02/12/2019 4:19 AM CDT [facility] Calcium 8.7 8.4 - 10.2 mg/dL 02/12/2019 4:19 AM T [facility] Anion Gap 7(L) 8 - 16 mmol/L 02/12/2019 4:19 AM CDT [facility] BUN 19 8.4 - 25.7 mg/dL 02/12/2019 4:19 AM CDT [facility] Creatinine 0.99 0.73 - 1.18 mg/dL 02/12/2019 4:19 AM CDT [facility] eGFR by MDRD >60 mL/min/1.7 3m2 02/12/2019 4:19 AM CDT [facility] eGFR by MDRD >60 mL/min/1.7 3m2 02/12/2019 4:19 AM CDT [facility] Blood BLOOD SPECIMEN / Unknown Lab Venipuncture / Unknown 02/12/2019 3:15 AM CDT 02/12/2019 3:43 AM CDT Blaire Meek MD LAB - CHEMISTRY ORDE RABANGELIA [facility] [address], [place] [id number] * (ABNORMAL) CBC W AUTO DIFFERENTIAL (02/12/2019 3:15 AM CDT) [facility] WBC 9.3 4.4 - 10.7 x10E9/L 02/12/2019 3:56 AM CDT [facility] WBC Corrected 02/12/2019 3:56 AM CDT [facility] RBC 2.84(L) 3.80 - 5.40 x10E12/L 02/12/2019 3:56 AM CDT [facility] Hemoglobin 7.5(L) 12.0 - 17.6 gm/dL 02/12/2019 3:56 AM [facility] Hematocrit 26.0(L) 35.2 - 51.7 % 02/12/2019 3:56 AM CDT [facility] MCV 91.5 80.7 - 98.3 fl 02/12/2019 3:56 AM CDT [facility] MCH 26.4(L) 26.7 - 34.0 pg 02/12/2019 3:56 AM [facility] MCHC 28.8(L) 30.8 - 35.9 gm/dL 02/12/2019 3:56 AM [facility] Platelet Count 270 153 - 416 x10E9/L 02/12/2019 3:56 AM [facility] RDW-CV 16.3(H) 12.1 - 14.9 % 02/12/2019 3:56 AM T [facility] MPV 11.7 9.4 - 12.9 fl 02/12/2019 3:56 AM [facility] Neutrophils % 74.3(H) 44.0 - 73.0 % 02/12/2019 3:56 AM [facility] Lymphocytes % 8.4(L) 20.0 - 43.0 % 02/12/2019 3:56 AM T [facility] Monocytes % 8.4 5.0 - 13.0 % 02/12/2019 3:56 AM CDT [facility] Eosinophils % 6.0 0.0 - 6.0 % 02/12/2019 3:56 AM CDT [facility] Basophils % 0.4 0.0 - 2.0 % 02/12/2019 3:56 AM T [facility] Immature Granulocytes 2.5(H) 0 - 1 % 02/12/2019 3:56 AM T [facility] Neutrophil Absolute 6.88 2.01 - 7.14 x10E9/L 02/12/2019 3:56 AM CDT [facility] Lymphocytes Absolute 0.78(L) 1.07 - 3.94 x10E9/L 02/12/2019 3:56 AM CDT [facility] Monocytes Absolute 0.78 0.26 - 1.07 x10E9/L 02/12/2019 3:56 AM CDT [facility] Eosinophils Absolute 0.56(H) 0 - 0.47 x10E9/L 02/12/2019 3:56 AM CDT [facility] Basophils Absolute 0.04 0 - 0.08 x10E9/L 02/12/2019 3:56 AM CDT [facility] Immature Granulocytes Absolute 0.23(H) 0.00 - 0.06 x10E9/L 02/12/2019 3:56 AM CDT [facility] nRBC Auto 0 /100 WBC 02/12/2019 3:56 AM CDT [facility] Blood BLOOD SPECIMEN / Unknown Lab Venipuncture / Unknown 02/12/2019 3:15 AM CDT 02/12/2019 3:44 AM CDT Blaire Meek MD LAB - HEMATOLOGY ORD ERABLES Performing Organization Address City/State/[facility] Co de Phone Number [facility] [address] [place] [address] * PT-INR (02/11/2019 2:34 PM CDT) PT 11.0 9.5 - 11.6 sec 02/11/2019 3:04 PM CDT [facility] INR 1.0 0.9 - 1.1 02/11/2019 3:04 PM CDT [facility] Blood BLOOD SPECIMEN / Unknown Lab Venipuncture / Unknown 02/11/2019 2:34 PM CDT 02/11/2019 2:52 PM CDT Narrative [facility] - 02/11/2019 3:04 PM CDT Conventional Warfarin Anticoagulant Therapy: INR Reference Range: ??2.0-3.0 Intensive Warfarin Anticoagulant Therapy: INR Reference Range: ? 2.5-3.5 Blaire Meek MD LAB - COAGULATION OR DERABLES [facility] [address], [place] [id number] * (ABNORMAL) BASIC METABOLIC PANEL (CALCIUM TOTAL) (02/11/2019 2:42 AM CDT) Glucose 113(H) 74 - 106 mg/dL 02/11/2019 4:37 AM CDT [facility] Sodium 137 136 - 145 mmol/L 02/11/2019 4:37 AM CDT [facility] Potassium 3.5 3.5 - 5.1 mmol/L 02/11/2019 4:37 AM CDT [facility] Chloride 101 98 - 107 mmol/L 02/11/2019 4:37 AM CDT [facility] CO2 27 23 - 31 mmol/L 02/11/2019 4:37 AM CDT [facility] Calcium 9.0 8.4 - 10.2 mg/dL 02/11/2019 4:37 AM CDT [facility] Anion Gap 9 8 - 16 mmol/L 02/11/2019 4:37 AM CDT [facility] BUN 21 8.4 - 25.7 mg/dL 02/11/2019 4:37 AM CDT [facility] Creatinine 1.00 0.73 - 1.18 mg/dL 02/11/2019 4:37 AM CDT [facility] eGFR by MDRD >60 mL/min/1.7 3m2 02/11/2019 4:37 AM CDT [facility] eGFR by MDRD >60 mL/min/1.7 3m2 02/11/2019 4:37 AM CDT [facility] Blood BLOOD SPECIMEN / Unknown Lab Venipuncture / Unknown 02/11/2019 2:42 AM CDT 02/11/2019 3:51 AM CDT Blaire Meek MD LAB - CHEMISTRY ROYCE KLINE [facility] [address] [place] [address] * (ABNORMAL) CBC W AUTO DIFFERENTIAL (02/11/2019 2:42 AM CDT) WBC 10.3 4.4 - 10.7 x10E9/L 02/11/2019 4:01 AM [facility] WBC Corrected 02/11/2019 4:01 AM [facility] RBC 2.87(L) 3.80 - 5.40 x10E12/L 02/11/2019 4:01 AM [facility] Hemoglobin 8.0(L) 12.0 - 17.6 gm/dL 02/11/2019 4:01 AM [facility] Hematocrit 26.4(L) 35.2 - 51.7 % 02/11/2019 4:01 AM [facility] MCV 92.0 80.7 - 98.3 fl 02/11/2019 4:01 AM [facility] MCH 27.9 26.7 - 34.0 pg 02/11/2019 4:01 AM [facility] MCHC 30.3(L) 30.8 - 35.9 gm/dL 02/11/2019 4:01 AM [facility] Platelet Count 277 153 - 416 x10E9/L 02/11/2019 4:01 AM [facility] RDW-CV 16.2(H) 12.1 - 14.9 % 02/11/2019 4:01 AM [facility] MPV 11.7 9.4 - 12.9 fl 02/11/2019 4:01 AM [facility] Neutrophils % 74.0(H) 44.0 - 73.0 % 02/11/2019 4:01 AM [facility] Lymphocytes % 7.8(L) 20.0 - 43.0 % 02/11/2019 4:01 AM [facility] Monocytes % 10.2 5.0 - 13.0 % 02/11/2019 4:01 AM [facility] Eosinophils % 5.3 0.0 - 6.0 % 02/11/2019 4:01 AM [facility] Basophils % 0.4 0.0 - 2.0 % 02/11/2019 4:01 AM [facility] Immature Granulocytes 2.3(H) 0 - 1 % 02/11/2019 4:01 AM [facility] Neutrophil Absolute 7.63(H) 2.01 - 7.14 x10E9/L 02/11/2019 4:01 AM [facility] Lymphocytes Absolute 0.81(L) 1.07 - 3.94 x10E9/L 02/11/2019 4:01 AM CDT [facility] Monocytes Absolute 1.05 0.26 - 1.07 x10E9/L 02/11/2019 4:01 AM CDT [facility] Eosinophils Absolute 0.55(H) 0 - 0.47 x10E9/L 02/11/2019 4:01 AM CDT [facility] Basophils Absolute 0.04 0 - 0.08 x10E9/L 02/11/2019 4:01 AM [facility] Immature Granulocytes Absolute 0.24(H) 0.00 - 0.06 x10E9/L 02/11/2019 4:01 AM [facility] nRBC Auto 0 /100 WBC 02/11/2019 4:01 AM [facility] Blood BLOOD SPECIMEN / Unknown Lab Venipuncture / Unknown 02/11/2019 2:42 AM CDT 02/11/2019 3:51 AM CDT Blaire Meek MD LAB - HEMATOLOGY ORD ERABLES [facility] [address] [place] [address] * (ABNORMAL) BASIC METABOLIC PANEL (CALCIUM TOTAL) (02/10/2019 3:18 AM CDT) Glucose 108(H) 74 - 106 mg/dL 02/10/2019 5:04 AM [facility] Sodium 139 136 - 145 mmol/L 02/10/2019 5:04 AM [facility] Potassium 3.8 3.5 - 5.1 mmol/L 02/10/2019 5:04 AM [facility] Chloride 105 98 - 107 mmol/L 02/10/2019 5:04 AM T [facility] CO2 26 23 - 31 mmol/L 02/10/2019 5:04 AM [facility] Calcium 9.0 8.4 - 10.2 mg/dL 02/10/2019 5:04 AM [facility] Anion Gap 8 8 - 16 mmol/L 02/10/2019 5:04 AM T [facility] BUN 20 8.4 - 25.7 mg/dL 02/10/2019 5:04 AM CDT [facility] Creatinine 1.16 0.73 - 1.18 mg/dL 02/10/2019 5:04 AM CDT [facility] eGFR by MDRD >60 mL/min/1.7 3m2 02/10/2019 5:04 AM CDT [facility] eGFR by MDRD >60 mL/min/1.7 3m2 02/10/2019 5:04 AM CDT [facility] Blood BLOOD SPECIMEN / Unknown Lab Venipuncture / Unknown 02/10/2019 3:18 AM CDT 02/10/2019 4:24 AM CDT Blaire Meek MD LAB - CHEMISTRY ROYCE KLINE [facility] [address], [place] [id number] * (ABNORMAL) CBC W AUTO DIFFERENTIAL (02/10/2019 3:18 AM CDT) WBC 10.1 4.4 - 10.7 x10E9/L 02/10/2019 4:37 AM [facility] WBC Corrected 02/10/2019 4:37 AM [facility] RBC 2.85(L) 3.80 - 5.40 x10E12/L 02/10/2019 4:37 AM CDT [facility] Hemoglobin 7.9(L) 12.0 - 17.6 gm/dL 02/10/2019 4:37 AM [facility] Hematocrit 26.1(L) 35.2 - 51.7 % 02/10/2019 4:37 AM CDT [facility] MCV 91.6 80.7 - 98.3 fl 02/10/2019 4:37 AM CDT [facility] MCH 27.7 26.7 - 34.0 pg 02/10/2019 4:37 AM CDT [facility] MCHC 30.3(L) 30.8 - 35.9 gm/dL 02/10/2019 4:37 AM CDT [facility] Platelet Count 260 153 - 416 x10E9/L 02/10/2019 4:37 AM [facility] RDW-CV 16.2(H) 12.1 - 14.9 % 02/10/2019 4:37 AM [facility] MPV 11.9 9.4 - 12.9 fl 02/10/2019 4:37 AM [facility] Neutrophils % 76.6(H) 44.0 - 73.0 % 02/10/2019 4:37 AM [facility] Lymphocytes % 7.6(L) 20.0 - 43.0 % 02/10/2019 4:37 AM [facility] Monocytes % 10.5 5.0 - 13.0 % 02/10/2019 4:37 AM [facility] Eosinophils % 3.3 0.0 - 6.0 % 02/10/2019 4:37 AM [facility] Basophils % 0.5 0.0 - 2.0 % 02/10/2019 4:37 AM [facility] Immature Granulocytes 1.5(H) 0 - 1 % 02/10/2019 4:37 AM [facility] Neutrophil Absolute 7.77(H) 2.01 - 7.14 x10E9/L 02/10/2019 4:37 AM [facility] Lymphocytes Absolute 0.77(L) 1.07 - 3.94 x10E9/L 02/10/2019 4:37 AM [facility] Monocytes Absolute 1.06 0.26 - 1.07 x10E9/L 02/10/2019 4:37 AM [facility] Eosinophils Absolute 0.33 0 - 0.47 x10E9/L 02/10/2019 4:37 AM [facility] Basophils Absolute 0.05 0 - 0.08 x10E9/L 02/10/2019 4:37 AM [facility] Immature Granulocytes Absolute 0.15(H) 0.00 - 0.06 x10E9/L 02/10/2019 4:37 AM [facility] nRBC Auto 0 /100 WBC 02/10/2019 4:37 AM [facility] Blood BLOOD SPECIMEN / Unknown Lab Venipuncture / Unknown 02/10/2019 3:18 AM CDT 02/10/2019 4:24 AM CDT Blaire Meek MD LAB - HEMATOLOGY ORD ERABLES [facility] [address], [place] [id number] * (ABNORMAL) BASIC METABOLIC PANEL (CALCIUM TOTAL) (02/09/2019 2:30 AM CDT) Glucose 119(H) 74 - 106 mg/dL 02/09/2019 3:04 AM CDT [facility] Sodium 137 136 - 145 mmol/L 02/09/2019 3:04 AM CDT [facility] Potassium 4.3 3.5 - 5.1 mmol/L 02/09/2019 3:04 AM CDT [facility] Chloride 102 98 - 107 mmol/L 02/09/2019 3:04 AM CDT [facility] CO2 25 23 - 31 mmol/L 02/09/2019 3:04 AM CDT [facility] Calcium 8.9 8.4 - 10.2 mg/dL 02/09/2019 3:04 AM T [facility] Anion Gap 10 8 - 16 mmol/L 02/09/2019 3:04 AM CDT [facility] BUN 20 8.4 - 25.7 mg/dL 02/09/2019 3:04 AM CDT [facility] Creatinine 1.23(H) 0.73 - 1.18 mg/dL 02/09/2019 3:04 AM CDT [facility] eGFR by MDRD 58 mL/min/1.7 3m2 02/09/2019 3:04 AM CDT [facility] eGFR by MDRD >60 mL/min/1.7 3m2 02/09/2019 3:04 AM CDT [facility] Blood BLOOD SPECIMEN / Unknown Lab Venipuncture / Unknown 02/09/2019 2:30 AM CDT 02/09/2019 2:46 AM CDT Blaire Meek MD LAB - CHEMISTRY ROYCE KLINE [facility] [address], [place] [id number] * (ABNORMAL) CBC W AUTO DIFFERENTIAL (02/09/2019 2:30 AM CDT) WBC 11.7(H) 4.4 - 10.7 x10E9/L 02/09/2019 2:50 AM CDT [facility] WBC Corrected 02/09/2019 2:50 AM CDT [facility] RBC 2.97(L) 3.80 - 5.40 x10E12/L 02/09/2019 2:50 AM CDT [facility] Hemoglobin 8.3(L) 12.0 - 17.6 gm/dL 02/09/2019 2:50 AM CDT [facility] Hematocrit 27.5(L) 35.2 - 51.7 % 02/09/2019 2:50 AM CDT [facility] MCV 92.6 80.7 - 98.3 fl 02/09/2019 2:50 AM CDT [facility] MCH 27.9 26.7 - 34.0 pg 02/09/2019 2:50 AM CDT [facility] MCHC 30.2(L) 30.8 - 35.9 gm/dL 02/09/2019 2:50 AM CDT [facility] Platelet Count 282 153 - 416 x10E9/L 02/09/2019 2:50 AM CDT [facility] RDW-CV 15.7(H) 12.1 - 14.9 % 02/09/2019 2:50 AM CDT [facility] MPV 11.2 9.4 - 12.9 fl 02/09/2019 2:50 AM CDT [facility] Neutrophils % 85.8(H) 44.0 - 73.0 % 02/09/2019 2:50 AM CDT [facility] Lymphocytes % 4.8(L) 20.0 - 43.0 % 02/09/2019 2:50 AM CDT [facility] Monocytes % 8.2 5.0 - 13.0 % 02/09/2019 2:50 AM CDT [facility] Eosinophils % 0.1 0.0 - 6.0 % 02/09/2019 2:50 AM CDT [facility] Basophils % 0.2 0.0 - 2.0 % 02/09/2019 2:50 AM CDT [facility] Immature Granulocytes 0.9 0 - 1 % 02/09/2019 2:50 AM CDT [facility] Neutrophil Absolute 10.01(H) 2.01 - 7.14 x10E9/L 02/09/2019 2:50 AM CDT [facility] Lymphocytes Absolute 0.56(L) 1.07 - 3.94 x10E9/L 02/09/2019 2:50 AM CDT [facility] Monocytes Absolute 0.95 0.26 - 1.07 x10E9/L 02/09/2019 2:50 AM CDT [facility] Eosinophils Absolute 0.01 0 - 0.47 x10E9/L 02/09/2019 2:50 AM CDT [facility] Basophils Absolute 0.02 0 - 0.08 x10E9/L 02/09/2019 2:50 AM CDT [facility] Immature Granulocytes Absolute 0.10(H) 0.00 - 0.06 x10E9/L 02/09/2019 2:50 AM CDT [facility] nRBC Auto 0 /100 WBC 02/09/2019 2:50 AM CDT [facility] Blood BLOOD SPECIMEN / Unknown Lab Venipuncture / Unknown 02/09/2019 2:30 AM CDT 02/09/2019 2:45 AM CDT Blaire Meek MD LAB - HEMATOLOGY ORD ERABLES Performing Organization Address City/[facility]/ZIP Co de Phone Number [facility] [address] [place] [address] * TYPE + SCREEN PANEL (02/08/2019 8:57 AM CDT) ABO A 02/08/2019 10:09 AM CDT [facility] Rh Type Positive 02/08/2019 10:09 AM CDT [facility] Comment:History checked. Antibody Screen Negative 02/08/2019 10:09 AM CDT [facility] Blood Bank BLOOD SPECIMEN / Unknown Lab Venipuncture / Unknown 02/08/2019 8:57 AM CDT 02/08/2019 9:40 AM CDT Alberto Shell MD LAB - BLOOD BA NK ORDERABLES Performing Organization Address City/[facility] Co de Phone Number [facility] [address] [phone] * (ABNORMAL) BASIC METABOLIC PANEL (CALCIUM TOTAL) (02/08/2019 2:56 AM CDT) Pathologist [facility] Glucose 90 74 - 106 mg/dL 02/08/2019 4:44 AM CDT [facility] Sodium 137 136 - 145 mmol/L 02/08/2019 4:44 AM CDT [facility] Potassium 3.8 3.5 - 5.1 mmol/L 02/08/2019 4:44 AM CDT [facility] Chloride 103 98 - 107 mmol/L 02/08/2019 4:44 AM CDT [facility] CO2 27 23 - 31 mmol/L 02/08/2019 4:44 AM CDT [facility] Calcium 9.3 8.4 - 10.2 mg/dL 02/08/2019 4:44 AM CDT [facility] Anion Gap 7(L) 8 - 16 mmol/L 02/08/2019 4:44 AM CDT [facility] BUN 20 8.4 - 25.7 mg/dL 02/08/2019 4:44 AM CDT [facility] Creatinine 1.17 0.73 - 1.18 mg/dL 02/08/2019 4:44 AM CDT [facility] eGFR by MDRD >60 mL/min/1.7 3m2 02/08/2019 4:44 AM T [facility] eGFR by MDRD >60 mL/min/1.7 3m2 02/08/2019 4:44 AM T [facility] Blood BLOOD SPECIMEN / Unknown Lab Venipuncture / Unknown 02/08/2019 2:56 AM CDT 02/08/2019 3:55 AM CDT Blaire Meek MD LAB - CHEMISTRY [facility] Organization Address City/State/ZIP Co de Phone Number [facility] [address] [place] [address] * (ABNORMAL) CBC W AUTO DIFFERENTIAL (02/08/2019 2:56 AM CDT) Pathologist [facility] WBC 8.9 4.4 - 10.7 x10E9/L 02/08/2019 4:17 AM CDT [facility] WBC Corrected 02/08/2019 4:17 AM CDT [facility] RBC 3.35(L) 3.80 - 5.40 x10E12/L 02/08/2019 4:17 AM CDT [facility] Hemoglobin 8.9(L) 12.0 - 17.6 gm/dL 02/08/2019 4:17 AM CDT [facility] Hematocrit 30.8(L) 35.2 - 51.7 % 02/08/2019 4:17 AM CDT [facility] MCV 91.9 80.7 - 98.3 fl 02/08/2019 4:17 AM CDT [facility] MCH 26.6(L) 26.7 - 34.0 pg 02/08/2019 4:17 AM CDT [facility] MCHC 28.9(L) 30.8 - 35.9 gm/dL 02/08/2019 4:17 AM [facility] Platelet Count 241 153 - 416 x10E9/L 02/08/2019 4:17 AM [facility] RDW-CV 15.6(H) 12.1 - 14.9 % 02/08/2019 4:17 AM [facility] MPV 12.1 9.4 - 12.9 fl 02/08/2019 4:17 AM [facility] Neutrophils % 73.2(H) 44.0 - 73.0 % 02/08/2019 4:17 AM [facility] Lymphocytes % 7.9(L) 20.0 - 43.0 % 02/08/2019 4:17 AM T [facility] Monocytes % 10.6 5.0 - 13.0 % 02/08/2019 4:17 AM [facility] Eosinophils % 6.7(H) 0.0 - 6.0 % 02/08/2019 4:17 AM [facility] Basophils % 0.7 0.0 - 2.0 % 02/08/2019 4:17 AM T [facility] Immature Granulocytes 0.9 0 - 1 % 02/08/2019 4:17 AM [facility] Neutrophil Absolute 6.49 2.01 - 7.14 x10E9/L 02/08/2019 4:17 AM CDT [facility] Lymphocytes Absolute 0.70(L) 1.07 - 3.94 x10E9/L 02/08/2019 4:17 AM T [facility] Monocytes Absolute 0.94 0.26 - 1.07 x10E9/L 02/08/2019 4:17 AM CDT [facility] Eosinophils Absolute 0.59(H) 0 - 0.47 x10E9/L 02/08/2019 4:17 AM CDT [facility] Basophils Absolute 0.06 0 - 0.08 x10E9/L 02/08/2019 4:17 AM CDT [facility] Immature Granulocytes Absolute 0.08(H) 0.00 - 0.06 x10E9/L 02/08/2019 4:17 AM CDT [facility] nRBC Auto 0 /100 WBC 02/08/2019 4:17 AM CDT [facility] Blood BLOOD SPECIMEN / Unknown Lab Venipuncture / Unknown 02/08/2019 2:56 AM CDT 02/08/2019 3:55 AM CDT Blaire Meek MD LAB - HEMATOLOGY ORD ERABLES Performing Organization Address City/[facility]/ZIP Co de Phone Number [facility] [address] [place] [phone] * SLIDE SCAN HEMATOLOGY (02/07/2019 4:09 AM CDT) Pathologist [facility] Platelet Estimation Adequate platelets Normal, Adequate platelets 02/07/2019 6:45 AM T [facility] Comment:Platelet clumping no jordan upon slide review Blood BLOOD SPECIMEN / Unknown Lab Venipuncture / Unknown 02/07/2019 4:09 AM CDT 02/07/2019 5:15 AM CDT Michelle Pratt MD LAB - HEMATOLOGY OR DERABLES [facility] [address] [place] [phone] * (ABNORMAL) CBC W AUTO DIFFERENTIAL (02/07/2019 4:09 AM CDT) WBC 10.0 4.4 - 10.7 x10E9/L 02/07/2019 5:59 AM CDT [facility] WBC Corrected 02/07/2019 5:59 AM CDT [facility] RBC 2.96(L) 3.80 - 5.40 x10E12/L 02/07/2019 5:59 AM CDT [facility] Hemoglobin 8.0(L) 12.0 - 17.6 gm/dL 02/07/2019 5:59 AM CDT [facility] Hematocrit 27.5(L) 35.2 - 51.7 % 02/07/2019 5:59 AM CDT [facility] MCV 92.9 80.7 - 98.3 fl 02/07/2019 5:59 AM CDT [facility] MCH 27.0 26.7 - 34.0 pg 02/07/2019 5:59 AM CDT [facility] MCHC 29.1(L) 30.8 - 35.9 gm/dL 02/07/2019 5:59 AM CDT [facility] Platelet Count 176 153 - 416 x10E9/L 02/07/2019 5:59 AM T [facility] RDW-CV 15.7(H) 12.1 - 14.9 % 02/07/2019 5:59 AM CDT [facility] MPV 13.1(H) 9.4 - 12.9 fl 02/07/2019 5:59 AM T [facility] Neutrophils % 79.4(H) 44.0 - 73.0 % 02/07/2019 5:59 AM CDT [facility] Lymphocytes % 5.0(L) 20.0 - 43.0 % 02/07/2019 5:59 AM CDT [facility] Monocytes % 8.6 5.0 - 13.0 % 02/07/2019 5:59 AM CDT [facility] Eosinophils % 5.7 0.0 - 6.0 % 02/07/2019 5:59 AM T [facility] Basophils % 0.6 0.0 - 2.0 % 02/07/2019 5:59 AM CDT [facility] Immature Granulocytes 0.7 0 - 1 % 02/07/2019 5:59 AM CDT [facility] Neutrophil Absolute 7.97(H) 2.01 - 7.14 x10E9/L 02/07/2019 5:59 AM CDT [facility] Lymphocytes Absolute 0.50(L) 1.07 - 3.94 x10E9/L 02/07/2019 5:59 AM CDT [facility] Monocytes Absolute 0.86 0.26 - 1.07 x10E9/L 02/07/2019 5:59 AM CDT [facility] Eosinophils Absolute 0.57(H) 0 - 0.47 x10E9/L 02/07/2019 5:59 AM CDT [facility] Basophils Absolute 0.06 0 - 0.08 x10E9/L 02/07/2019 5:59 AM CDT [facility] Immature Granulocytes Absolute 0.07(H) 0.00 - 0.06 x10E9/L 02/07/2019 5:59 AM CDT [facility] nRBC Auto 0 /100 WBC 02/07/2019 5:59 AM CDT [facility] Blood BLOOD SPECIMEN / Unknown Lab Venipuncture / Unknown 02/07/2019 4:09 AM CDT 02/07/2019 5:15 AM CDT Michelle Pratt MD LAB - HEMATOLOGY OR DERABLES [facility] [address] [place], [place] [id number] * (ABNORMAL) BASIC METABOLIC PANEL (CALCIUM TOTAL) (02/07/2019 4:09 AM CDT) Glucose 92 74 - 106 mg/dL 02/07/2019 6:13 AM [facility] Sodium 135(L) 136 - 145 mmol/L 02/07/2019 6:13 AM CDT [facility] Potassium 4.3 3.5 - 5.1 mmol/L 02/07/2019 6:13 AM [facility] Chloride 104 98 - 107 mmol/L 02/07/2019 6:13 AM T [facility] CO2 23 23 - 31 mmol/L 02/07/2019 6:13 AM T [facility] Calcium 9.0 8.4 - 10.2 mg/dL 02/07/2019 6:13 AM CDT [facility] Anion Gap 8 8 - 16 mmol/L 02/07/2019 6:13 AM CDT [facility] BUN 17 8.4 - 25.7 mg/dL 02/07/2019 6:13 AM [facility] Creatinine 1.20(H) 0.73 - 1.18 mg/dL 02/07/2019 6:13 AM [facility] eGFR by MDRD 60 mL/min/1.7 3m2 02/07/2019 6:13 AM CDT [facility] eGFR by MDRD >60 mL/min/1.7 3m2 02/07/2019 6:13 AM CDT [facility] Blood BLOOD SPECIMEN / Unknown Lab Venipuncture / Unknown 02/07/2019 4:09 AM CDT 02/07/2019 5:15 AM CDT Michelle Pratt MD LAB - CHEMISTRY RAFFY SNOWDEN Performing Organization Address [facility]/ZIP Co de Phone Number [facility] [address] [place] [phone] * VANCOMYCIN LEVEL RANDOM (02/07/2019 4:09 AM CDT) Pathologist [facility] Vancomycin Random 20.9 ug/mL 02/07/2019 6:27 AM CDT [facility] Blood BLOOD SPECIMEN / Unknown Lab Venipuncture / Unknown 02/07/2019 4:09 AM CDT 02/07/2019 5:15 AM CDT Narrative [facility] - 02/07/2019 6:27 AM CDT No reference range available for random Vancomycin levels. All results interpreted by ordering physician. Yasmany Oh MD LAB - CHEMISTRY ROYCE KLINE Performing Organization Address [facility] Co de Phone Number [facility] [address] [place] [phone] * (ABNORMAL) CBC W AUTO DIFFERENTIAL (02/06/2019 4:19 AM CDT) WBC 9.1 4.4 - 10.7 x10E9/L 02/06/2019 4:53 AM CDT [facility] WBC Corrected 02/06/2019 4:53 AM CDT [facility] RBC 2.94(L) 3.80 - 5.40 x10E12/L 02/06/2019 4:53 AM CDT [facility] Hemoglobin 7.9(L) 12.0 - 17.6 gm/dL 02/06/2019 4:53 AM CDT [facility] Hematocrit 27.5(L) 35.2 - 51.7 % 02/06/2019 4:53 AM CDT [facility] MCV 93.5 80.7 - 98.3 fl 02/06/2019 4:53 AM CDT [facility] MCH 26.9 26.7 - 34.0 pg 02/06/2019 4:53 AM CDT [facility] MCHC 28.7(L) 30.8 - 35.9 gm/dL 02/06/2019 4:53 AM CDT [facility] Platelet Count 189 153 - 416 x10E9/L 02/06/2019 4:53 AM T [facility] RDW-CV 15.8(H) 12.1 - 14.9 % 02/06/2019 4:53 AM CDT [facility] MPV 12.1 9.4 - 12.9 fl 02/06/2019 4:53 AM T [facility] Neutrophils % 73.8(H) 44.0 - 73.0 % 02/06/2019 4:53 AM T [facility] Lymphocytes % 5.9(L) 20.0 - 43.0 % 02/06/2019 4:53 AM T [facility] Monocytes % 10.9 5.0 - 13.0 % 02/06/2019 4:53 AM CDT [facility] Eosinophils % 8.2(H) 0.0 - 6.0 % 02/06/2019 4:53 AM T [facility] Basophils % 0.4 0.0 - 2.0 % 02/06/2019 4:53 AM T [facility] Immature Granulocytes 0.8 0 - 1 % 02/06/2019 4:53 AM T [facility] Neutrophil Absolute 6.68 2.01 - 7.14 x10E9/L 02/06/2019 4:53 AM CDT [facility] Lymphocytes Absolute 0.53(L) 1.07 - 3.94 x10E9/L 02/06/2019 4:53 AM CDT [facility] Monocytes Absolute 0.99 0.26 - 1.07 x10E9/L 02/06/2019 4:53 AM CDT [facility] Eosinophils Absolute 0.74(H) 0 - 0.47 x10E9/L 02/06/2019 4:53 AM T [facility] Basophils Absolute 0.04 0 - 0.08 x10E9/L 02/06/2019 4:53 AM CDT [facility] Immature Granulocytes Absolute 0.07(H) 0.00 - 0.06 x10E9/L 02/06/2019 4:53 AM CDT [facility] nRBC Auto 0 /100 WBC 02/06/2019 4:53 AM CDT [facility] Blood BLOOD SPECIMEN / Unknown Lab Venipuncture / Unknown 02/06/2019 4:19 AM CDT 02/06/2019 4:42 AM CDT Michelle Pratt MD LAB - HEMATOLOGY OR DERABLES [facility] [address] [place] [address] * (ABNORMAL) BASIC METABOLIC PANEL (CALCIUM TOTAL) (02/06/2019 4:19 AM CDT) Glucose 110(H) 74 - 106 mg/dL 02/06/2019 5:24 AM [facility] Sodium 136 136 - 145 mmol/L 02/06/2019 5:24 AM [facility] Potassium 4.7 3.5 - 5.1 mmol/L 02/06/2019 5:24 AM [facility] Chloride 106 98 - 107 mmol/L 02/06/2019 5:24 AM T [facility] CO2 23 23 - 31 mmol/L 02/06/2019 5:24 AM [facility] Calcium 8.8 8.4 - 10.2 mg/dL 02/06/2019 5:24 AM [facility] Anion Gap 7(L) 8 - 16 mmol/L 02/06/2019 5:24 AM [facility] BUN 17 8.4 - 25.7 mg/dL 02/06/2019 5:24 AM [facility] Creatinine 1.23(H) 0.73 - 1.18 mg/dL 02/06/2019 5:24 AM [facility] eGFR by MDRD 58 mL/min/1.7 3m2 02/06/2019 5:24 AM [facility] eGFR by MDRD >60 mL/min/1.7 3m2 02/06/2019 5:24 AM CDT [facility] Blood BLOOD SPECIMEN / Unknown Lab Venipuncture / Unknown 02/06/2019 4:19 AM CDT 02/06/2019 4:41 AM CDT Michelle Pratt MD LAB - CHEMISTRY ORD ERABLES Performing Organization Address [facility] Co de Phone Number [facility] [address] [place] [phone] * VANCOMYCIN LEVEL RANDOM (02/06/2019 4:19 AM CDT) [facility] Vancomycin Random 19.2 ug/mL 02/06/2019 5:26 AM CDT [facility] Blood BLOOD SPECIMEN / Unknown Lab Venipuncture / Unknown 02/06/2019 4:19 AM CDT 02/06/2019 4:41 AM CDT Narrative [facility] - 02/06/2019 5:26 AM CDT No reference range available for random Vancomycin levels. All results interpreted by ordering physician. Michelle Pratt MD LAB - CHEMISTRY ORD ERABLES Performing Organization Address [facility] de Phone Number [facility] [address] [place] [phone] * (ABNORMAL) CBC W AUTO DIFFERENTIAL (02/05/2019 2:38 AM CDT) [facility] WBC 10.6 4.4 - 10.7 x10E9/L 02/05/2019 3:27 AM CDT [facility] WBC Corrected 02/05/2019 3:27 AM CDT [facility] RBC 3.08(L) 3.80 - 5.40 x10E12/L 02/05/2019 3:27 AM CDT [facility] Hemoglobin 8.5(L) 12.0 - 17.6 gm/dL 02/05/2019 3:27 AM CDT [facility] Hematocrit 27.9(L) 35.2 - 51.7 % 02/05/2019 3:27 AM CDT [facility] MCV 90.6 80.7 - 98.3 fl 02/05/2019 3:27 AM CDT [facility] MCH 27.6 26.7 - 34.0 pg 02/05/2019 3:27 AM CDT [facility] MCHC 30.5(L) 30.8 - 35.9 gm/dL 02/05/2019 3:27 AM [facility] Platelet Count 220 153 - 416 x10E9/L 02/05/2019 3:27 AM [facility] RDW-CV 15.9(H) 12.1 - 14.9 % 02/05/2019 3:27 AM [facility] MPV 12.0 9.4 - 12.9 fl 02/05/2019 3:27 AM [facility] Neutrophils % 75.3(H) 44.0 - 73.0 % 02/05/2019 3:27 AM [facility] Lymphocytes % 5.2(L) 20.0 - 43.0 % 02/05/2019 3:27 AM [facility] Monocytes % 10.2 5.0 - 13.0 % 02/05/2019 3:27 AM [facility] Eosinophils % 8.5(H) 0.0 - 6.0 % 02/05/2019 3:27 AM [facility] Basophils % 0.2 0.0 - 2.0 % 02/05/2019 3:27 AM [facility] Immature Granulocytes 0.6 0 - 1 % 02/05/2019 3:27 AM [facility] Neutrophil Absolute 7.96(H) 2.01 - 7.14 x10E9/L 02/05/2019 3:27 AM [facility] Lymphocytes Absolute 0.55(L) 1.07 - 3.94 x10E9/L 02/05/2019 3:27 AM [facility] Monocytes Absolute 1.08(H) 0.26 - 1.07 x10E9/L 02/05/2019 3:27 AM [facility] Eosinophils Absolute 0.90(H) 0 - 0.47 x10E9/L 02/05/2019 3:27 AM [facility] Basophils Absolute 0.02 0 - 0.08 x10E9/L 02/05/2019 3:27 AM [facility] Immature Granulocytes Absolute 0.06 0.00 - 0.06 x10E9/L 02/05/2019 3:27 AM [facility] nRBC Auto 0 /100 WBC 02/05/2019 3:27 AM [facility] Blood BLOOD SPECIMEN / Unknown Lab Venipuncture / Unknown 02/05/2019 2:38 AM CDT 02/05/2019 3:14 AM CDT Michelle Pratt MD LAB - HEMATOLOGY OR DERABLES [facility] [address] [place] [address] * (ABNORMAL) BASIC METABOLIC PANEL (CALCIUM TOTAL) (02/05/2019 2:38 AM CDT) [facility] Glucose 118(H) 74 - 106 mg/dL 02/05/2019 3:41 AM CDT [facility] Sodium 136 136 - 145 mmol/L 02/05/2019 3:41 AM CDT [facility] Potassium 4.2 3.5 - 5.1 mmol/L 02/05/2019 3:41 AM CDT [facility] Chloride 107 98 - 107 mmol/L 02/05/2019 3:41 AM CDT [facility] CO2 22(L) 23 - 31 mmol/L 02/05/2019 3:41 AM CDT [facility] Calcium 8.6 8.4 - 10.2 mg/dL 02/05/2019 3:41 AM CDT [facility] Anion Gap 7(L) 8 - 16 mmol/L 02/05/2019 3:41 AM CDT [facility] BUN 20 8.4 - 25.7 mg/dL 02/05/2019 3:41 AM CDT [facility] Creatinine 1.24(H) 0.73 - 1.18 mg/dL 02/05/2019 3:41 AM CDT [facility] eGFR by MDRD 58 mL/min/1.7 3m2 02/05/2019 3:41 AM CDT [facility] eGFR by MDRD >60 mL/min/1.7 3m2 02/05/2019 3:41 AM CDT [facility] Blood BLOOD SPECIMEN / Unknown Lab Venipuncture / Unknown 02/05/2019 2:38 AM CDT 02/05/2019 3:14 AM CDT Michelle Pratt MD LAB - CHEMISTRY ORD ERABLES [facility] [address] [place] [phone] * VANCOMYCIN LEVEL RANDOM (02/05/2019 2:38 AM CDT) Pathologist [facility] Vancomycin Random 21.8 ug/mL 02/05/2019 3:47 AM CDT [facility] Blood BLOOD SPECIMEN / Unknown Lab Venipuncture / Unknown 02/05/2019 2:38 AM CDT 02/05/2019 3:14 AM CDT Narrative [facility] - 02/05/2019 3:47 AM CDT No reference range available for random Vancomycin levels. All results interpreted by ordering physician. Yasmany Oh MD LAB - CHEMISTRY ROYCE KLINE Performing Organization Address [facility] de Phone Number [facility] [address] [place] [phone] * GLUCOSE - POINT OF CARE (02/04/2019 5:16 PM CDT) [facility] Glucose WB/POC 101 70 - 106 mg/dL 02/05/2019 7:00 AM CDT [facility] Specimen Type Arterial/C apillary 02/05/2019 7:00 AM CDT [facility] Blood BLOOD SPECIMEN / Unknown 02/04/2019 5:16 PM CDT 02/05/2019 6:59 AM CDT Michelle Pratt MD LAB - POINT OF CARE ORDERABLES Performing Organization Address [facility] Co de Phone Number [facility] [address] [place] [phone] * (ABNORMAL) VANCOMYCIN LEVEL TROUGH (02/04/2019 2:12 PM CDT) Pathologist [facility] Vancomycin Trough 28.6(HH) 10.0 - 20.0 ug/mL 02/04/2019 2:35 PM CDT [facility] Blood BLOOD SPECIMEN / Unknown Lab Venipuncture / Unknown 02/04/2019 2:12 PM CDT 02/04/2019 2:16 PM CDT Yasmany Oh MD LAB - CHEMISTRY ROYCE KLINE [facility] [address] [place] [address] * (ABNORMAL) GLUCOSE - POINT OF CARE (02/04/2019 12:09 PM CDT) Glucose WB/POC 111(H) 70 - 106 mg/dL 02/04/2019 2:47 PM CDT [facility] Specimen Type Arterial/C apillary 02/04/2019 2:47 PM CDT [facility] Blood BLOOD SPECIMEN / Unknown 02/04/2019 12:09 PM CDT 02/04/2019 2:46 PM CDT Michelle Pratt MD LAB - POINT OF CARE ORDERABLES Performing Organization Address [facility]/ZIP Co de Phone Number [facility] [address] [place] [address] * (ABNORMAL) CULTURE WOUND+GRAM STAIN (02/04/2019 11:29 AM CDT) Culture Rare Staphylococcus aureus methicillin-resistan t (MRSA)(A) UMESH 02/06/2019 11:57 AM CDT [facility] Gram Stain Heavy Polymorphonuclear cells 02/06/2019 11:57 AM CDT [facility] Gram Stain Moderate Red blood cells 02/06/2019 11:57 AM CDT [facility] Gram Stain No organisms seen 019 11:57 AM CDT [facility] Microbiology ENTIRE HIP REGION / Unknown Collection / Unknown 02/04/2019 11:29 AM CDT 02/04/2019 12:01 PM CDT Narrative [facility] - 02/06/2019 11:57 AM CDT [...] LAB - MICROBIOLOGY ORDERABLES Performing Organization Address City/[facility]/ZIP Co de Phone Number [facility] [address] [place] [address], [facility] [phone] * CULTURE ANAEROBE (02/04/2019 11:29 AM CDT) Culture No anaerobic organisms isolated UMESH 02/09/2019 11:40 AM CDT [facility] Microbiology ENTIRE [place] REG[place] / Unknown Collection / Unknown 02/04/2019 11:29 AM CDT 02/04/2019 12:08 PM CDT Narrative [facility] - 02/09/2019 11:40 AM CDT Surgical Description: Right Hip Larry Alexander MD LAB - MICROBIOLOGY ORDERABLES Performing Organization Address City/[facility]/ZIP Co de Phone Number [facility] [address] [place] [address], [facility] [phone] * (ABNORMAL) CULTURE TISSUE+GRAM STAIN (02/04/2019 11:29 AM CDT) Culture Rare Staphylococcus aureus methicillin-resistan t (MRSA)(AA) UMESH 02/06/2019 11:37 AM CDT [facility] Gram Stain Moderate Polymorphonuclear cells 02/06/2019 11:37 AM CDT [facility] Gram Stain Heavy Red blood cells 02/06/2019 11:37 AM T [facility] Gram Stain No organisms seen 019 11:37 AM T [facility] Microbiology ENTIRE HIP REGION / Unknown Collection / Unknown 02/04/2019 11:29 AM CDT 02/04/2019 12:08 PM CDT Narrative [facility] - 02/06/2019 11:37 AM CDT [...] Larry Alexander MD LAB - MICROBIOLOGY ORDERABLES [facility] [address] [place] [address], [facility] [phone] * CULTURE ANAEROBE (02/04/2019 11:29 AM CDT) Culture No anaerobic organisms isolated UMESH 02/09/2019 11:40 AM [facility] Microbiology ENTIRE HIP REGION / Unknown Collection / Unknown 02/04/2019 11:29 AM CDT 02/04/2019 12:08 PM CDT Narrative [facility] - 02/09/2019 11:40 AM CDT Surgical Description: Right Hip Larry Alexander MD LAB - MICROBIOLOGY ORDERABLES [facility] [address] [phone] * GLUCOSE - POINT OF CARE (02/04/2019 8:17 AM CDT) Glucose WB/POC 101 70 - 106 mg/dL 02/04/2019 8:48 AM CDT [facility] Specimen Type Arterial/C apillary 02/04/2019 8:48 AM CDT [facility] Blood BLOOD SPECIMEN / Unknown 02/04/2019 8:17 AM CDT 02/04/2019 8:48 AM CDT Michelle Pratt MD LAB - POINT OF CARE ORDERABLES Performing Organization Address City/[facility]/ZIP Co de Phone Number [facility] [address] [place] [address] * PT PTT PANEL (02/04/2019 7:37 AM CDT) PT 11.1 9.5 - 11.6 sec 02/04/2019 9:12 AM CDT [facility] INR 1.0 0.9 - 1.1 02/04/2019 9:12 AM CDT [facility] PTT 26.4 21.0 - 32.0 sec 02/04/2019 9:12 AM CDT [facility] Blood BLOOD SPECIMEN / Unknown 02/04/2019 7:37 AM CDT 02/04/2019 9:03 AM CDT Narrative [facility] - 02/04/2019 9:12 AM CDT Conventional Warfarin Anticoagulant Therapy: INR Reference Range: ??2.0-3.0 Intensive Warfarin Anticoagulant Therapy: INR Reference Range: ? 2.5-3.5 Heparin Therapeutic Range for PTT: 50.5 - 74.3 seconds. Michelle Pratt MD LAB - COAGULATION O RDERABLES Performing Organization Address City/[facility]/ZIP Co de Phone Number [facility] [address] [place] [address] * (ABNORMAL) CBC W/O DIFFERENTIAL (02/04/2019 7:37 AM CDT) [facility] WBC 10.6 4.4 - 10.7 x10E9/L 02/04/2019 8:35 AM CDT [facility] RBC 3.26(L) 3.80 - 5.40 x10E12/L 02/04/2019 8:35 AM CDT [facility] Hemoglobin 8.7(L) 12.0 - 17.6 gm/dL 02/04/2019 8:35 AM CDT [facility] Hematocrit 30.0(L) 35.2 - 51.7 % 02/04/2019 8:35 AM CDT [facility] MCV 92.0 80.7 - 98.3 fl 02/04/2019 8:35 AM CDT [facility] MCH 26.7 26.7 - 34.0 pg 02/04/2019 8:35 AM CDT [facility] MCHC 29.0(L) 30.8 - 35.9 gm/dL 02/04/2019 8:35 AM CDT [facility] Platelet Count 212 153 - 416 x10E9/L 02/04/2019 8:35 AM CDT [facility] RDW-CV 15.9(H) 12.1 - 14.9 % 02/04/2019 8:35 AM CDT [facility] MPV 11.9 9.4 - 12.9 fl 02/04/2019 8:35 AM CDT [facility] Blood BLOOD SPECIMEN / Unknown Lab Venipuncture / Unknown 02/04/2019 7:37 AM CDT 02/04/2019 8:25 AM CDT Jason Blackburn MD LAB - HEMATOLOGY ORD ERABLES Performing Organization Address City/[facility]/ZIP Co de Phone Number [facility] [address], [place] [id number] * (ABNORMAL) URINALYSIS REFLEX MICROSCOPIC REFLEX CULTURE (02/04/2019 6:17 AM CDT) Color UA Yellow Straw, Yellow 02/04/2019 6:43 AM T [facility] [facility] Clarity UA Cloudy(A) Clear 02/04/2019 6:43 AM CDT [facility] Glucose UA Negative Negative 02/04/2019 6:43 AM [facility] Bilirubin UA Negative Negative 02/04/2019 6:43 AM T [facility] Ketone UA Trace(A) Negative 02/04/2019 6:43 AM T [facility] Specific [employer] UA 1.021 1.005 - 1.030 02/04/2019 6:43 AM [facility] Blood UA Negative Negative 02/04/2019 6:43 AM [facility] pH UA 5.0 5.0 - 8.0 pH 02/04/2019 6:43 AM T [facility] Protein UA Negative Negative 02/04/2019 6:43 AM [facility] Urobilinogen UA Negative Negative mg/dL 02/04/2019 6:43 AM CDT [facility] Nitrite UA Negative Negative 02/04/2019 6:43 AM [facility] Leukocyte UA Negative Negative 02/04/2019 6:43 AM [facility] Urine Microscopy Urine microscopy not indicated 02/04/2019 6:43 AM [facility] Reflex Status Culture not indicated 02/04/2019 6:43 AM [facility] Urine URINE SPECIMEN OBTAINED BY CLEAN CATCH PROCEDURE / Unknown Collection / Unknown 02/04/2019 6:17 AM CDT 02/04/2019 6:24 AM CDT [facility] - 02/04/2019 6:43 AM CDT Ascorbic Acid can cause false negative urine strip tests for blood, glucose, nitrite, and bilirubin. Yasmany Oh MD LAB - URINALYSIS ORD ERABLES [facility] [address] [place] [address] * (ABNORMAL) BASIC METABOLIC PANEL (CALCIUM TOTAL) (02/04/2019 2:34 AM CDT) Glucose 114(H) 74 - 106 mg/dL 02/04/2019 4:13 AM CDT [facility] Sodium 135(L) 136 - 145 mmol/L 02/04/2019 4:13 AM CDT [facility] Potassium 3.7 3.5 - 5.1 mmol/L 02/04/2019 4:13 AM CDT [facility] Chloride 106 98 - 107 mmol/L 02/04/2019 4:13 AM CDT [facility] CO2 21(L) 23 - 31 mmol/L 02/04/2019 4:13 AM CDT [facility] Calcium 8.6 8.4 - 10.2 mg/dL 02/04/2019 4:13 AM T [facility] Anion Gap 8 8 - 16 mmol/L 02/04/2019 4:13 AM CDT [facility] BUN 21 8.4 - 25.7 mg/dL 02/04/2019 4:13 AM CDT [facility] Creatinine 1.13 0.73 - 1.18 mg/dL 02/04/2019 4:13 AM CDT [facility] eGFR by MDRD >60 mL/min/1.7 3m2 02/04/2019 4:13 AM CDT [facility] eGFR by MDRD >60 mL/min/1.7 3m2 02/04/2019 4:13 AM CDT [facility] Blood BLOOD SPECIMEN / Unknown Lab Venipuncture / Unknown 02/04/2019 2:34 AM CDT 02/04/2019 3:32 AM CDT Michelle Pratt MD LAB - CHEMISTRY ORD ERABLES [facility] [address] [place] [address] * PRETEST TYPE & SCREEN (02/04/2019 2:34 AM CDT) ABO A 02/04/2019 4:07 AM CDT [facility] Rh Type Positive 02/04/2019 4:07 AM CDT [facility] Comment:History checked. Col lect retype. Antibody Screen Negative 02/04/2019 4:07 AM CDT [facility] Blood Bank BLOOD SPECIMEN / Unknown Lab Venipuncture / Unknown 02/04/2019 2:34 AM CDT 02/04/2019 3:34 AM CDT Jeffrey Angelo MD LAB - BLOOD BANK OR DERABLES Performing Organization Address [facility]/ZIP Co de Phone Number [facility] [address] [place], [place] [address] [phone] * (ABNORMAL) GLUCOSE - POINT OF CARE (02/03/2019 8:35 PM CDT) Glucose WB/POC 131(H) 70 - 106 mg/dL 02/03/2019 9:51 PM CDT [facility] Specimen Type Arterial/C apillary 02/03/2019 9:51 PM CDT [facility] Blood BLOOD SPECIMEN / Unknown 02/03/2019 8:35 PM CDT 02/03/2019 9:51 PM CDT Michelle Pratt MD LAB - POINT OF CARE ORDERABLES Performing Organization Address [facility] Co de Phone Number [facility] [address] [place] [id number] * (ABNORMAL) GLUCOSE - POINT OF CARE (02/03/2019 5:22 PM CDT) Pathologist [facility] Glucose WB/POC 114(H) 70 - 106 mg/dL 02/03/2019 7:05 PM CDT [facility] Specimen Type Arterial/C apillary 02/03/2019 7:05 PM CDT [facility] Blood BLOOD SPECIMEN / Unknown 02/03/2019 5:22 PM CDT 02/03/2019 7:05 PM CDT Michelle Pratt MD LAB - POINT OF CARE ORDERABLES Performing Organization Address [facility] Co de Phone Number [facility] [address] [place] [id number] * EKG 12-LEAD (02/03/2019 4:29 PM CDT) Ventricular Rate 81 BPM [facility] Atrial Rate 166 BPM [facility] QRS Duration ms 92 ms [facility] Q-T Interval ms 372 ms [facility] QTC Calculation (Bezet) 432 ms [facility] Calculated R [place] -6 degrees HC MUSE Calculated T [place] 25 degrees [facility] Interpretation EKG ATRIAL FIBRILLATION LOW VOLTAGE QRS SEPTAL INFARCT , AGE UNDETERMINED ABNORMAL ECG Confirmed by DO Campoverde Stephanie ([id number]) on 02/06/2019 9:13:20 AM [facility] 02/03/2019 4:29 PM CDT 02/06/2019 9:13 AM CDT Michelle Pratt MD ECG ORDERABLES Performing Organization Address City/[facility]/ZIP Co de Phone Number [facility] * (ABNORMAL) GLUCOSE - POINT OF CARE (02/03/2019 1:00 PM CDT) Glucose WB/POC 155(H) 70 - 106 mg/dL 02/03/2019 7:05 PM CDT [facility] Specimen Type Arterial/C apillary 02/03/2019 7:05 PM CDT [facility] Blood BLOOD SPECIMEN / Unknown 02/03/2019 1:00 PM CDT 02/03/2019 7:05 PM CDT Michelle Pratt MD LAB - POINT OF CARE ORDERABLES Performing Organization Address [facility] Co de Phone Number [facility] [address] [place] [address] * GLUCOSE - POINT OF CARE (02/03/2019 10:10 AM CDT) Glucose WB/POC 106 70 - 106 mg/dL 02/03/2019 7:05 PM CDT [facility] Specimen Type Arterial/C apillary 02/03/2019 7:05 PM CDT [facility] Blood BLOOD SPECIMEN / Unknown 02/03/2019 10:10 AM CDT 02/03/2019 7:05 PM CDT Michelle Pratt MD LAB - POINT OF CARE ORDERABLES [facility] [address] [place] [address] * XR FEMUR 2 VW RIGHT (02/03/2019 [...] - 2.2 mmol/L 02/03/2019 5:15 AM CDT [facility] Blood BLOOD SPECIMEN / Unknown Lab Venipuncture / Unknown 02/03/2019 4:13 AM CDT 02/03/2019 4:39 AM CDT Yasmany Oh MD LAB - CHEMISTRY ROYCE KLINE Performing Organization Address [facility] Co de Phone Number [facility] [address] [place], [place] [id number] * HEMOGLOBIN A1C (02/03/2019 1:06 AM CDT) Pathologist [facility] Hemoglobin A1c 5.8 4.0 - 6.1 % 02/03/2019 10:11 AM CDT [facility] Estimated Average Glucose 120 mg/dL 02/03/2019 10:11 AM CDT [facility] Blood BLOOD SPECIMEN / Unknown Lab Venipuncture / Unknown 02/03/2019 1:06 AM CDT 02/03/2019 1:16 AM CDT Michelle Pratt MD LAB - CHEMISTRY ORD ERABLES Performing Organization Address [facility] Co de Phone Number [facility] [address] [place] [address] * PT-INR (02/03/2019 1:06 AM CDT) [facility] PT 11.3 9.5 - 11.6 sec 02/03/2019 1:36 AM CDT [facility] INR 1.1 0.9 - 1.1 02/03/2019 1:36 AM CDT [facility] Blood BLOOD SPECIMEN / Unknown Lab Venipuncture / Unknown 02/03/2019 1:06 AM CDT 02/03/2019 1:16 AM CDT Narrative [facility] - 02/03/2019 1:36 AM CDT Conventional Warfarin Anticoagulant Therapy: INR Reference Range: ??2.0-3.0 Intensive Warfarin Anticoagulant Therapy: INR Reference Range: ? 2.5-3.5 Yasmany Oh MD LAB - COAGULATION OR DERABLES Performing Organization Address [facility] Co de Phone Number [facility] [address] [place], [place] [id number] * (ABNORMAL) COMPREHENSIVE METABOLIC PANEL (02/03/2019 1:06 AM CDT) Glucose 112(H) 74 - 106 mg/dL 02/03/2019 1:41 AM CDT [facility] Sodium 134(L) 136 - 145 mmol/L 02/03/2019 1:41 AM CDT [facility] Potassium 4.3 3.5 - 5.1 mmol/L 02/03/2019 1:41 AM CDT [facility] Chloride 101 98 - 107 mmol/L 02/03/2019 1:41 AM CDT [facility] CO2 25 23 - 31 mmol/L 02/03/2019 1:41 AM CDT [facility] Calcium 9.5 8.4 - 10.2 mg/dL 02/03/2019 1:41 AM CDT [facility] Anion Gap 8 8 - 16 mmol/L 02/03/2019 1:41 AM CDT [facility] BUN 19 8.4 - 25.7 mg/dL 02/03/2019 1:41 AM CDT [facility] Creatinine 1.22(H) 0.73 - 1.18 mg/dL 02/03/2019 1:41 AM T [facility] Alkaline Phosphatase 304(H) 40 - 150 U/L 02/03/2019 1:41 AM CDT [facility] ALT 21 13 - 61 U/L 02/03/2019 1:41 AM CDT [facility] AST 20 5 - 34 U/L 02/03/2019 1:41 AM T [facility] Protein Total 7.0 6.4 - 8.3 gm/dL 02/03/2019 1:41 AM T [facility] Albumin 3.1(L) 3.2 - 4.6 gm/dL 02/03/2019 1:41 AM T [facility] Bilirubin Total 1.0 0.2 - 1.2 mg/dL 02/03/2019 1:41 AM CDT [facility] eGFR by MDRD 59 mL/min/1.7 3m2 02/03/2019 1:41 AM CDT [facility] eGFR by MDRD >60 mL/min/1.7 3m2 02/03/2019 1:41 AM T [facility] Blood BLOOD SPECIMEN / Unknown Lab Venipuncture / Unknown 02/03/2019 1:06 AM CDT 02/03/2019 1:16 AM CDT Yasmany Oh MD LAB - CHEMISTRY ROYCE KLINE [facility] Organization Address City/State/ZIP Co de Phone Number [facility] [address] [place] [address] * (ABNORMAL) CBC W AUTO DIFFERENTIAL (02/03/2019 1:06 AM CDT) WBC 14.2(H) 4.4 - 10.7 x10E9/L 02/03/2019 1:22 AM CDT [facility] WBC Corrected 02/03/2019 1:22 AM CDT [facility] RBC 3.64(L) 3.80 - 5.40 x10E12/L 02/03/2019 1:22 AM CDT [facility] Hemoglobin 9.9(L) 12.0 - 17.6 gm/dL 02/03/2019 1:22 AM CDT [facility] Hematocrit 32.9(L) 35.2 - 51.7 % 02/03/2019 1:22 AM CDT [facility] MCV 90.4 80.7 - 98.3 fl 02/03/2019 1:22 AM CDT [facility] MCH 27.2 26.7 - 34.0 pg 02/03/2019 1:22 AM CDT [facility] MCHC 30.1(L) 30.8 - 35.9 gm/dL 02/03/2019 1:22 AM CDT [facility] Platelet Count 241 153 - 416 x10E9/L 02/03/2019 1:22 AM CDT [facility] RDW-CV 15.9(H) 12.1 - 14.9 % 02/03/2019 1:22 AM CDT [facility] MPV 12.1 9.4 - 12.9 fl 02/03/2019 1:22 AM CDT [facility] Neutrophils % 79.6(H) 44.0 - 73.0 % 02/03/2019 1:22 AM CDT [facility] Lymphocytes % 4.7(L) 20.0 - 43.0 % 02/03/2019 1:22 AM CDT [facility] Monocytes % 9.6 5.0 - 13.0 % 02/03/2019 1:22 AM CDT [facility] Eosinophils % 5.2 0.0 - 6.0 % 02/03/2019 1:22 AM CDT [facility] Basophils % 0.4 0.0 - 2.0 % 02/03/2019 1:22 AM CDT [facility] Immature Granulocytes 0.5 0 - 1 % 02/03/2019 1:22 AM CDT [facility] Neutrophil Absolute 11.28(H) 2.01 - 7.14 x10E9/L 02/03/2019 1:22 AM CDT [facility] Lymphocytes Absolute 0.66(L) 1.07 - 3.94 x10E9/L 02/03/2019 1:22 AM CDT [facility] Monocytes Absolute 1.36(H) 0.26 - 1.07 x10E9/L 02/03/2019 1:22 AM CDT [facility] Eosinophils Absolute 0.73(H) 0 - 0.47 x10E9/L 02/03/2019 1:22 AM CDT [facility] Basophils Absolute 0.05 0 - 0.08 x10E9/L 02/03/2019 1:22 AM CDT [facility] Immature Granulocytes Absolute 0.07(H) 0.00 - 0.06 x10E9/L 02/03/2019 1:22 AM CDT [facility] nRBC Auto 0 /100 WBC 02/03/2019 1:22 AM CDT [facility] Blood BLOOD SPECIMEN / Unknown Lab Venipuncture / Unknown 02/03/2019 1:06 AM CDT 02/03/2019 1:16 AM CDT Yasmany Oh MD LAB - HEMATOLOGY [place] Performing Organization Address City/State/[facility] Co de Phone Number [facility] [address] [place] [address] * LACTIC ACID BLOOD (02/03/2019 1:06 AM CDT) [facility] Lactic Acid 0.8 0.5 - 2.2 mmol/L 02/03/2019 1:37 AM CDT [facility] Blood BLOOD SPECIMEN / Unknown Lab Venipuncture / Unknown 02/03/2019 1:06 AM CDT 02/03/2019 1:16 AM CDT Yasmany Oh MD LAB - CHEMISTRY ROYCE KLINE Performing Organization Address City/[facility]/ZIP Co de Phone Number [facility] [address] [place] [address] * CULTURE BLOOD (02/02/2019 10:38 PM CDT) Culture No growth day 5 UMESH 02/08/2019 2:31 AM CDT [facility] Blood PERIPHERAL BLOOD / Unknown Lab Venipuncture / Unknown 02/02/2019 10:38 PM CDT 02/02/2019 10:44 PM CDT Yasmany Oh MD LAB - MICROBIOLOGY O RIO Performing Organization Address [facility] Co de Phone Number [facility] [address] [place] [address], [facility] [phone] * CULTURE BLOOD (02/02/2019 10:38 PM CDT) Culture No growth day 5 [facility] 02/08/2019 2:31 AM CDT [facility] Blood PERIPHERAL BLOOD / Unknown Lab Venipuncture / Unknown 02/02/2019 10:38 PM CDT 02/02/2019 10:44 PM CDT Yasmany Oh MD LAB - MICROBIOLOGY O RIO Performing Organization Address [facility] Co de Phone Number [facility] [address] [place] [address], [facility] [phone] * LACTIC ACID BLOOD (02/02/2019 10:38 PM CDT) Lactic Acid 0.9 0.5 - 2.2 mmol/L 02/02/2019 11:00 PM CDT [facility] Blood BLOOD SPECIMEN / Unknown Lab Venipuncture / Unknown 02/02/2019 10:38 PM CDT 02/02/2019 10:44 PM CDT Yasmany Oh MD LAB - CHEMISTRY ROYCE KLINE Performing Organization Address City/[facility] Co de Phone Number [facility] [address] [place] [address] documented in this encounter Visit [...] mL/ hr warfarin (COUMADIN) dose per pharmacy [facility] Other, DAILY AT 1700, 365 doses, First [...] Cathy Baker, DONTAE)2049 ($ Given - Provider: Chrsi Carter RN) 1031 ($ Given - Provider: [...] Eula Augustin RN)1850 (Due: Stopped - Provider: Eual Augustin RN) warfarin (COUMADIN) dose per pharmacy [...] . 1746 ($ Given - Provider: Cathy Baekr, DONTAE) warfarin (COUMADIN) tablet 5 mg (COMPLETED) [...] documented as of this encounter Care Teams Dispatcher [employer]inery Relationship Specialty Start Date End Date Briana Medeiros MD [address] [place] [id number] PCP - General 02/15/18 02/22/22 documented as of this encounter
--- OUTSIDE RECORDS SUMMARY | 2024-05-25 03:03 | XMS_ITS | Encounter Summary ---
Author Organization [facility] Address [address] [place] [address] Care Team Providers Care Dry Wall Applicator Name Role Phone Briana Medeiros MD Primary Care Provider [phone] Reason for Visit * Auth/Cert Specialty Diagnoses / Procedures Referred By Contac t Referred To Contact Diagnoses Prosthetic Joint Infection Referral ID Status Reason Start Date Expiration Date Visits Re quested Visits Authorized [id number] 1 1 Encounter Details Date Type Department Care Team (Late st Contact Info) Description 05/02/2019 11:30 AM CAREER REPRESENTATIVE - 05/02/2019 3:02 PM CAREER REPRESENTATIVE Surgery [facility] PERIOPERATIVE [address] [place] [address] Larry Alexander MD [address] [address] IRRIGATION AND DEBRIDEMENT RIGHT HIP ABSCESS Surgery Details Date/Time Status Location OR Service Patient Class Case Class Case Type Trauma Case? 05/02/2019 11:30 AM Posted [facility] MAIN OR OR 03 Orthopedics Inpatient [...] Comments Blood Pressure 133/76 05/02/2019 11:44 AM CAREER REPRESENTATIVE Pulse 79 05/02/2019 11:44 AM CAREER REPRESENTATIVE Temperature 36.6 ??C (97.8 ??F) 05/02/2019 11:[address] Respiratory Rate 18 05/02/2019 11:44 AM CAREER REPRESENTATIVE Oxygen Saturation 99% 05/02/2019 11:44 AM CAREER REPRESENTATIVE Inhaled Oxygen Concentration 21% 05/01/2019 1 0:19 AM CAREER REPRESENTATIVE Weight 99.8 kg (220 lb) 04/29/2019 5:26 AM CAREER REPRESENTATIVE Height 180.3 cm (5' 11 ) 04/29/2019 5:26 AM CAREER REPRESENTATIVE Body Mass Index 30.68 04/29/2019 5:26 AM CAREER REPRESENTATIVE documented in this encounter Functional Status Functional [...] 50 mg by mouth once daily NYSTOP 297940 UNIT/GM powder Generic drug: nystatin Apply to [...] as needed vitamin D (ergocalciferol) 1.25 MG (65326 UT) capsule Commonly known as: DRISDOL Take [...] discharge diagnosis is: Abscess of right hip [[id number]] Follow up with Primary Care Provider (PCP) [...] midline, no internal rotation - Thigh high FARNKLIN hose when up during the day. May [...] soaks. No scrubbing around incision. ?? Call [phone] to schedule the first follow-up appointment with [...] patient Kev Ordonez MD 05/06/2019 12:18 PM ER REPRESENTATIVE documented in this encounter Discharge Instructions * Discharge Instructions* Alberto De Los Santos MD - 05/02/2019 3:34 PM CAREER REPRESENTATIVE [facility] Orthopedic Adult Reconstruction Surgery Patient Discharge Instructions [...] dressing. Keep this intact for another week. [place] and sutures are to be removed at [...] three week clinic visit - Pain Medication: Thurman Narcotic Medication Patient Information You are being discharged/sent home with a prescription(s) for narcotic pain medicine (examples: Oxycodone, Hydrocodone, Roxicodone, Percocet, Thurman). Our goal is to control your pain, [...] Tylenol. - Many pain medicines (such as Thurman or Percocet) also contain Tylenol/Acetaminophen (this is [...] all medicine bottles to office visits. Call [phone] to schedule the first follow-up appointment with Dr. Alexander in 3 week(s) or for any questions Alberto De Los Santos MD ER REPRESENTATIVE documented in this encounter Medications at Time [...] daily 57 capsule 05/06/2019 08/28/2019 nystatin (MYCOSTATIN) 668351 UNIT/GM powder Apply to affected area 2 [...] as needed. 10/12/2023 vitamin D, ergocalciferol, (DRISDOL) 21886 UNITS capsuleIndications:Ot her cirrhosis of liver (HCC) Take 50,000 Units by mouth every 7 days 0 02/02/2018 03/21/2023 documented as of this encounter Progress Notes * Alberto Shell MD - 05/06/2019 10:01 AM CST [facility] Orthopedic Surgery Daily Progress Note José Miguel Keys, 68 year old, male : 1950 CSN: [id number] Primary Care Physician: Briana Medeiros MD - [...] results to clinic, c/o DONTAE Alonzo ( [facility]). Plan for 4 weeks of [...] soaks. No scrubbing around incision. ?? Call [phone] to schedule the first follow-up appointment with Dr. Alexander in 3 week(s) or for any questions Alberto Shell MD 05/06/2019 10:01 AM ER REPRESENTATIVE * Azeb Dye RN - 05/06/2019 9:43 AM CST [facility] and faxed CLIF information to [phone] ER REPRESENTATIVE * James Dasilva PharmD - 05/06/2019 9:32 AM CST This patient was on vancomycin per pharmacy protocol. This order has been discontinued by Dr. Ordonez.Pending levels and/or doses have been canceled. This entry for documentation and informational purposes only. James Dasilva PharmD ER REPRESENTATIVE * Cheryl Mccoy PharmD - 05/06/2019 9:09 [...] unspecified vessel or lesion type, unspecified whether [place] or transplanted heart 3. Chronic atrial fibrillation [...] you, Mike Mondragon (Pt), PT x [phone] ER REPRESENTATIVE * Alanna (Pt)Mike PT - 05/06/2019 8:02 [...] with w/w, WBAT R LE Outcome: Ongoing ER REPRESENTATIVE * Kristen Guadarrama, RN - 05/06/2019 4:33 [...] monitor Kristen Guadarrama RN 05/06/2019 4:35 AM ER REPRESENTATIVE * Yoko Hale RCP - 05/05/2019 7:27 PM CST Problem: Oxygenation/Respiratory Function Goal: Respiratory rate will be within normal limits for patient. Description José Miguel will achieve an even and unlabored respiratory pattern. Outcome: Ongoing José Miguel continues on scheduled nebulizer tx. Lungs sound diminished this shift. Will continue to monitor and wean as able. ER REPRESENTATIVE * Kev Ordonez MD - 05/05/2019 1:38 [...] results for input(s): MAGMGDL in the last 65262 hours. Recent Labs Component Name 09/19/17 0243 [...] (TYLENOL) tablet 650 mg, Oral, q6h PRN qggksqkw-xesmtzidu-hypalscgmxs (MAALOX;MYLANTA) suspension 15 mL, Oral, q6h PRN [...] done in 05/01/2019 Allergies: PENICILLINS, LEVOFLOXACIN, SCOPOLAMINE Baby Formula Mixer: Gómez Finch Referring Physician: Kev Ordonez MD [...] changes were blunted (less than 50% variation). ER REPRESENTATIVE * Raysa Nevarez MD - 05/05/2019 12:06 [...] results for input(s): CDIFFTOXINAB in the last 11205 hours. Recent Labs Component Name 04/24/19 1141 SEDRATE 70* Recent Labs Component Name 04/24/19 1140 08/15/17 0348 08/09/17 0745 CRP 1.41* 4.1* 32.0* No results for input(s): CK in the last 43370 hours. .No results for input(s): VANCOTROUGH, VANCOPEAK, VANCSERIES in the last 50732 hours. Invalid input(s): VANCORAND Recent Labs Component [...] the spine with epidural abscess treated at [facility] [address] -- left THR Plan - will continue on vanc and rifampin with hardware in place - monitor labs On discharge the p.o. doxycycline for 2 weeks followed by chronic suppression daily Please be advised that part of this text was done using voice recognition software. Errors may havebeen missed upon review. Raysa Nevarez MD ER REPRESENTATIVE * Kristie Martinez, PT - 05/05/2019 10:20 [...] discharge summary. Kristie Martinez, PT x [phone] ER REPRESENTATIVE * Cheryl Mccoy, PharmD - 05/05/2019 9:41 [...] appropriate. Cheryl Mccoy, PharmNia 05/05/2019 9:41 AM ER REPRESENTATIVE * Alberto Shell MD - 05/05/2019 8:54 AM CST [facility] Orthopedic Surgery Daily Progress Note José Miguel Keys, 68 year old, male : 1950 CSN: [id number] Primary Care Physician: Briana Medeiros MD - [...] results to clinic, c/o DONTAE Alonzo ( [facility]). Plan for 4 weeks of [...] soaks. No scrubbing around incision. ?? Call [phone] to schedule the first follow-up appointment with Dr. Alexander in 3 week(s) or for any questions Alberto Shell MD 05/05/2019 8:54 AM ER REPRESENTATIVE * Cleo Cota RCP - 05/05/2019 7:56 AM CST Mr. Keys remains on scheduled neb tx's to maintain home regime therapy of 4x's daily.Cleo Cota, Respiratory Care Practitioner 05/05/2019 7:57 AM ER REPRESENTATIVE * Jayshree Gilliam - 05/05/2019 4:25 AM [...] knowledge of self-care management skills Outcome: Ongoing ER REPRESENTATIVE * Genevieve Crowder RCP - 05/04/2019 9:20 PM CST Problem: Oxygenation/Respiratory Function Goal: Patent airway Outcome: Ongoing Goal: Respiratory rate will be within normal limits for patient. Outcome: Ongoing Mr. Keys is taking Q 6 neb treatments along with BID inhalers,lung sounds are clear diminished. RTwill continue to monitor.Genevieve Crowder, Respiratory Care Practitioner 05/04/2019 9:21 PM ER REPRESENTATIVE * Nika Montoya RN - 05/04/2019 7:02 PM CST Refused narc pain control. Tylenol has been effective. Aware of safety limitations. 1 person assistwith transfers and toileting for safety and assist with tubing. ER REPRESENTATIVE * Nika Montoya RN - 05/04/2019 7:00 PM CST Shift report Pleasant today; Right sided IV infiltrated. (Odalis took care of this) Applied warm compress. He is worried about it. currently at bedside. New PRN order for mylanta at his request. 1 asssit (withwound vac) to transfer and toilet. ER REPRESENTATIVE * Tammy Haynes OT - 05/04/2019 1:27 [...] ??? S/P PICC central line placement 02/13/2019 [facility] VAT R basilic ??? Seizures ??? Squamous cell carcinoma ??? 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 Pt's spouse is home and can help as needed. Home Situation: Type of Residence: Private Residence Lives with:: Spouse Home Structure: (tri level home) Steps to Enter: 1(from back door) Handrails: Indoor Ramp: No Primary Bedroom: Second Floor Primary Bathroom: First Floor Bathroom : Tub/Shower Combo Equipment At Home: Commode-Bedside;Walker-2 Wheeled;Walker-4 Wheeled with Seat;Wheelchair-Standard;Pleat Taper;Dressing Stick;Sock Aid(drop arm BSC) Prior Level of [...] on observation and clinical judgement): Feeding: Modified [place] Oral Facial Hygiene: Stand By Assist(limited endurance [...] summary. MARIA DEL CARMEN Claros, OTR/L Ascom [phone] ER REPRESENTATIVE * Nika Montoya RN - 05/04/2019 12:59 PM CST 1305 Medication flagged as too soon. Nora at pharmacy notified and to change time to 1600. Medication already Prepared. Insturctions given to disregard and a new one will be sent. ER REPRESENTATIVE * PadillaSai, PT - 05/04/2019 12:11 PM [...] discharge summary. Sai Padilla, PT x [phone] ER REPRESENTATIVE * Fay Otero DEPUTY SHERIFF - 05/04/2019 10:41 AM CST Social Work Progress Note Discharge Plan [facility] Transportation: Transportation at discharge: Family Anticipated Discharge Date: Anticipated Discharge Date: 05/03/19 Contacts: Trinity Keys, spouse, Comments: None CHRIS Herrera [phone] ER REPRESENTATIVE * Tammy Haynes OT - 05/04/2019 9:44 AM CST Occupational therapy orders received; chart review completed. Unable to complete visit due to pt eating breakfast (just started). Will attempt to see patient at a later date/time as OT schedule allows. Tammy Haynes OTD, OTR/L Ascom [phone] ER REPRESENTATIVE * Michelle Pratt MD - 05/04/2019 9:30 [...] results for input(s): MAGMGDL in the last 23011 hours. Recent Labs Component Name 09/19/17 0243 [...] (TYLENOL) tablet 650 mg, Oral, q6h PRN zghzpkld-czrvqwrez-ycdbfjxbyys (MAALOX;MYLANTA) suspension 15 mL, Oral, q6h PRN [...] done in 05/01/2019 Allergies: PENICILLINS, LEVOFLOXACIN, SCOPOLAMINE Baby Formula Mixer: Gómez Finch Referring Physician: Kev Ordonez MD [...] changes were blunted (less than 50% variation). ER REPRESENTATIVE * Sumaya, Alberto Dhillon MD - 05/04/2019 8:55 AM CST [facility] Orthopedic Surgery Daily Progress Note José Miguel Keys, 68 year old, male : 1950 CSN: [id number] Primary Care Physician: Briana Medeiros MD - [...] results to clinic, c/o DONTAE Alonzo ( [facility]). Plan for 4 weeks of [...] soaks. No scrubbing around incision. ?? Call [phone] to schedule the first follow-up appointment with Dr. Alexander in 3 week(s) or for any questions Alberto Shell MD 05/04/2019 8:56 AM ER REPRESENTATIVE * Raysa Nevarez MD - 05/04/2019 7:11 [...] results for input(s): CDIFFTOXINAB in the last 41938 hours. Recent Labs Component Name 04/24/19 1141 SEDRATE 70* Recent Labs Component Name 04/24/19 1140 08/15/17 0348 08/09/17 0745 CRP 1.41* 4.1* 32.0* No results for input(s): CK in the last 29870 hours. .No results for input(s): VANCOTROUGH, VANCOPEAK, VANCSERIES in the last 95326 hours. Invalid input(s): VANCORAND Recent Labs Component [...] the spine with epidural abscess treated at [facility] [address] -- left THR Plan - will continue on vanc and rifampin with hardware - monitor labs discussed with Dr. Pratt Please be advised that part of this text was done using voice recognition software. Errors may havebeen missed upon review. Raysa Nevarez MD ER REPRESENTATIVE * Hoa Poe - 05/04/2019 5:34 AM CST During prior administration of pain medication patient inquired if I was given him Oxy for his pain. Orginally radio news writer had administered tramadol alternating with tylenol. Upon this last request patient seemed to be in a little more discomfort, with bowel, movement, he then asked for pain medication.Development Disability Specialist pulled oxy for the pain better adhere patient pain needs, medication was scanned and when heasked what he was getting radio news writer explained that oxy was stronger and [...] prefers to alternate with tramadol,tylenol or Bufferin. ER REPRESENTATIVE * Cee Boyce RCP - 05/04/2019 5:12 [...] Boyce, Respiratory Care Practitioner 05/04/2019 5:15 AM ER REPRESENTATIVE * Hoa Poe - 05/04/2019 5:02 AM [...] knowledge of self-care management skills Outcome: Ongoing ER REPRESENTATIVE * Nika Montoya RN - 05/03/2019 4:30 PM CST Shift Report Resident pleasant and cooperative this shift. at bedside this evening. Biggest issue today waspain management. Provider requested patient have pain meds alternated every 2 hours and also increased avail. I had difficulty with the pump today but the vanc was administered. Swelling to eyes has improved today. ER REPRESENTATIVE * Nika Montoya RN - 05/03/2019 4:16 [...] shift. More effective pain control. Continue goal. ER REPRESENTATIVE * Eula Verma RCP - 05/03/2019 1:56 PM CST Problem: Oxygenation/Respiratory Function Goal: Patent airway Note: José Miguel continues on scheduled nebulizer tx. Lungs sound diminished this shift. Will continue to monitor and wean as able ER REPRESENTATIVE * Brenden Ellis PharmD - 05/03/2019 12:15 [...] Recent Labs Component Name 05/03/19 0246 05/02/19 6110 05/01/19 0244 BUN 16 20 25 CREATININE [...] needed. Brenden Ellis, PharmD 05/03/2019 2:16 PM ER REPRESENTATIVE * Michelle Pratt MD - 05/03/2019 12:14 [...] results for input(s): MAGMGDL in the last 54512 hours. Recent Labs Component Name 09/19/17 0243 [...] done in 05/01/2019 Allergies: PENICILLINS, LEVOFLOXACIN, SCOPOLAMINE Baby Formula Mixer: Gómez Finch Referring Physician: Kev Ordonez MD [...] changes were blunted (less than 50% variation). ER REPRESENTATIVE * Wendy Cid, PT - 05/03/2019 10:54 AM CST Physical Therapy Treatment Today's Date: 05/03/2019 Patient Name: José Miguel Keys Referring Physician:Michelle Pratt MD Referral Diagnosis: 1. 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 Coronary artery disease without angina pectoris, unspecified vessel or lesion type, unspecified whether [place] or transplanted heart 3. Chronic atrial fibrillation 4. Diagnosis unknown PT Referral: evaluation and treatment Precaution/ Restrictions: Falls and WBAT R LE at present time History of Present Illness: Patient is a 68 y/o male who was admitted from home to [facility] on 04/29/19 with dx of: infected right [...] PT services. Wendy Pereira PT, DPT Ascom #[id number] ER REPRESENTATIVE * Raysa Nevarez MD - 05/03/2019 9:25 [...] results for input(s): CDIFFTOXINAB in the last 56303 hours. Recent Labs Component Name 04/24/19 1141 SEDRATE 70* Recent Labs Component Name 04/24/19 1140 08/15/17 0348 08/09/17 0745 CRP 1.41* 4.1* 32.0* No results for input(s): CK in the last 01408 hours. .No results for input(s): VANCOTROUGH, VANCOPEAK, VANCSERIES in the last 81587 hours. Invalid input(s): VANCORAND Recent Labs Component [...] the spine with epidural abscess treated at [facility] [address] -- left THR Plan - will continue on vanc and rifampin with hardware - monitor labs discussed with Dr. Alexander yesterday Please be advised that part of this text was done using voice recognition software. Errors may havebeen missed upon review. Raysa Nevarez MD ER REPRESENTATIVE * Leslye Montgomery RN - 05/03/2019 5:31 [...] reach. Leslye Montgomery RN 05/03/2019 5:32 AM ER REPRESENTATIVE * Alberto Shell MD - 05/03/2019 2:22 AM CST [facility] Orthopedic Surgery Daily Progress Note José Miguel Keys, 68 year old, male : 1950 CSN: [id number] Primary Care Physician: Briana Medeiros MD - [...] results to clinic, c/o DONTAE Alonzo ( [facility]). Plan for 4 weeks of [...] soaks. No scrubbing around incision. ?? Call [phone] to schedule the first follow-up appointment with Dr. Alexander in 3 week(s) or for any questions Alberto Shell MD 05/03/2019 9:32 AM ER REPRESENTATIVE * Leslye Montgomery RN - 05/03/2019 12:35 AM CST Problem: Pain/Discomfort Goal: Patient uses pharmacological and non-pharmacological pain management strategies. Outcome: Ongoing Pain moderately controlled with PRN Fentanyl. Problem: Oxygenation/Respiratory Function Goal: Respiratory rate will be within normal limits for patient. Outcome: Ongoing RR and O2 sats WNL. ER REPRESENTATIVE * Amanda Merritt RN - 05/02/2019 4:25 PM CST Called down to waiting room. No family present. ER REPRESENTATIVE * Alberto De Los Santos MD - 05/02/2019 3:27 PM CST [facility] Orthopedic Surgery Postoperative Check José Miguel Keys, 68 year old, male : 1950 CSN: [id number] Admitted: 04/29/2019 5:18 AM Subjective Nausea/vomiting: none [...] De Los Santos MD 05/02/2019 3:27 PM ER REPRESENTATIVE * Kev Ordonez MD - 05/02/2019 2:55 [...] results for input(s): MAGMGDL in the last 40051 hours. Recent Labs Component Name 09/19/17 0243 [...] Feel free to text page me through Sanghvi, login smsl ER REPRESENTATIVE * Tammy Haynes OT - 05/02/2019 1:05 PM CST Occupational therapy orders received; chart review completed. Unable to complete visit due to pt MIRYAM for R I&D, hardware removal, and antibiotic spacer placement. Will attempt to see patient at alater date/time as OT schedule allows. Tammy Haynes OTD, OTR/L Ascom [phone] ER REPRESENTATIVE * Des Pereira Wendy Alissa, PT - 05/02/2019 11:30 AM CST Physical Therapy Treatment Today's Date: 05/02/2019 Patient Name: José Miguel Keys Referring Physician:Kev Ordonez MD Referral Diagnosis: 1. 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 Coronary artery disease without angina pectoris, unspecified vessel or lesion type, unspecified whether [place] or transplanted heart 3. Chronic atrial fibrillation 4. Diagnosis unknown PT Referral: evaluation and treatment Precaution/ Restrictions: Falls and WBAT R LE at present time History of Present Illness: Patient is a 68 y/o male who was admitted from home to [facility] on 04/29/19 with dx of: infected right [...] sitting upright in [facility]inv on room air in no apparent distress [...] services. Wendy Pereira, PT, DPT Ascom #[phone] ER REPRESENTATIVE * Fay Otero DEPUTY SHERIFF - 05/02/2019 11:29 AM CST Case reviewed with RN/CM during morning huddle. Per huddle pt will need some level of rehab at d/c.Pt scheduled for surgery to remove hardware and cement spacer to be placed. DEPUTY SHERIFF will continue to f/u and coordinate ER REPRESENTATIVE * Raysa Nevarez MD - 05/02/2019 9:47 [...] results for input(s): CDIFFTOXINAB in the last 19436 hours. Recent Labs Component Name 04/24/19 1141 SEDRATE 70* Recent Labs Component Name 04/24/19 1140 08/15/17 0348 08/09/17 0745 CRP 1.41* 4.1* 32.0* No results for input(s): CK in the last 86040 hours. .No results for input(s): VANCOTROUGH, VANCOPEAK, VANCSERIES in the last 81749 hours. Invalid input(s): VANCORAND Recent Labs Component [...] the spine with epidural abscess treated at [facility] [address] -- left THR Plan --surgery - will continue on vanc based on prior cx and rifampin with hardware - monitor labs Discussed with Discussed diet Please be advised that part of this text was done using voice recognition software. Errors may havebeen missed upon review. Raysa Nevarez MD ER REPRESENTATIVE * Larry Alexander MD - 05/02/2019 6:23 AM CST Images from the original note were not included. [facility] Orthopedic Surgery Daily Progress Note José Miguel Keys, 68 year old, male : 1950 CSN: [id number] Primary Care Physician: Briana Medeiros MD - [...] Procedure Component Value - Date/Time CULTURE MRSA [[id number]] (Normal) Collected: 04/29/192140 Lab Status: Final result Specimen: Micro from Rectum Updated: 05/01/19523 Culture Negative for methicillin-resistant Staphylococcus aureus (MRSA) CULTURE VRE [[id number]] (Abnormal) Collected: 04/29/192140 Lab Status: Final result Specimen: Micro from Rectum Updated: 05/01/19 0609 Culture Growth of Enterococcus species vancomycin-resistant (VRE) Narrative: For vancomycin-resistant enterococci (VRE), contact precautions are required. For any questions, call Infection Prevention. CULTURE ABSCESS+GRAM STAIN [[id number]] (Normal) Collected: 04/29/192140 Lab Status: Preliminary result Specimen: Micro from Hip Updated: 05/01/19 1427 Culture Culture in progress Gram Stain Rare Polymorphonuclear cells No organisms seen CULTURE BLOOD [[id number]] Collected: 04/29/191908 Lab Status: Preliminary result Specimen: Blood Peripheral Updated: 05/01/192199 Culture No growth CULTURE BLOOD [[id number]] Collected: 04/29/191908 Lab Status: Preliminary result Specimen: Blood Peripheral Updated: 05/01/192199 Culture No growth CULTURE MRSA [[id number]] (Abnormal) Collected: 04/29/191755 Lab Status: Final result [...] by mouth once daily ??? nystatin (NYSTOP) 664280 UNIT/GM powder Apply to affected area 2 [...] as needed. ??? vitamin D, ergocalciferol, (DRISDOL) 39575 UNITS capsule Take 50,000 Units by mouth [...] ??? S/P PICC central line placement 02/13/2019 [facility] VAT R basilic ??? Seizures ??? [...] Please see resident's note for further details. ER REPRESENTATIVE * Clarice Carver RN - 05/02/2019 6:06 AM CST Pt. A & O x 4, c/o right hip pain, prn meds provided, up adlib with walker to bathroom,on cpap @ bedtime,NPO since midnight, reminded to call for any assistance, call light within easy reach. ER REPRESENTATIVE * Genevieve Crowder RCP - 05/02/2019 1:36 AM CST Problem: Oxygenation/Respiratory Function Goal: Patent airway Outcome: Ongoing Goal: Patient exhibits no evidence of increased respiratory distress Outcome: Ongoing Mr. Keys is taking Q 6 neb treatments along with his HCPAP, RT will continue to monitor.Genevieve Crowder, Respiratory Care Practitioner 05/02/2019 1:37 AM ER REPRESENTATIVE * Clarice Carver RN - 05/01/2019 9:45 [...] (Comment) Recommended Access Route: PO Outcome: Ongoing ER REPRESENTATIVE * Efrain Rojas RN - 05/01/2019 8:06 PM CST Shift summary: patient up to recliner chair, pain med given as ordered, oint applied to both eyes due to redness and itching,l hip dressing intact appetite good, family at bedside, call light and phone within reach. ER REPRESENTATIVE * Efrain Rojas RN - 05/01/2019 5:07 PM CST Resp Therapy notified to complete EKG this evening, but realized it was already completed. ER REPRESENTATIVE * Kev Ordonez MD - 05/01/2019 3:22 [...] results for input(s): MAGMGDL in the last 08238 hours. Recent Labs Component Name 09/19/17 0243 [...] Feel free to text page me through Sanghvi, login smsl ER REPRESENTATIVE * Bryanna Jc, PharmD - 05/01/2019 1:36 [...] adjust regimen if necessary. Bryanna Jc PharmD ER REPRESENTATIVE * Fay Otero, DEPUTY SHERIFF - 05/01/2019 1:23 PM CST CASE reviewed during MDR rounds. PER rounds pt will need some level of rehab at d/c. DEPUTY SHERIFF will continue to follow and coordinate d/c. ER REPRESENTATIVE * Paz Chen RN - 05/01/2019 1:21 [...] during the day. He is established with [facility]. Patient has had several rehab stays since his original hip replacement. He lives in [facility]. He will consider acute rehab here at [facility] if necessary. Patient does not know if [...] Assessment (BNA) Score: 9 Complex Needs Assessment (CASTING ASSISTANT) Score: 10 Social Support Domain Score: 2 [...] Medications: Transportation: Name: Paz Chen RN Phone: [phone] ER REPRESENTATIVE * Wendy Cid, PT - 05/01/2019 11:18 AM CST Physical Therapy Initial Evaluation Today's Date: 05/01/2019 Patient Name: José Miguel Keys Referring Physician:Kev Ordonez MD Referral Diagnosis: 1. 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 Coronary artery disease without angina pectoris, unspecified vessel or lesion type, unspecified whether [place] or transplanted heart 3. Chronic atrial fibrillation [...] ??? S/P PICC central line placement 02/13/2019 [facility] VAT R basilic ??? Seizures ??? [...] puffy, itchy ??? Scopace [Scopolamine] Other and THIRD SHIFT LIEUTENANT Dysfunction delirium History of Present Illness: Patient is a 68 y/o male who was admitted from home to [facility] on 04/29/19 with dx of: infected right [...] care will be discussed with Physical Therapist Primary School Teacher(s) who will be assisting withtreatments. If this is the last Physical Therapy visit, this serves as the discharge summary. Thank you for referring this patient for skilled PT services. Wendy Pereira, PT, DPT Ascom #[id number] ER REPRESENTATIVE * Alanna (Ot)Mike OT - 05/01/2019 10:38 [...] schedule permits. Thank you, GWEN PadgettR/Alissa Ascom#[id number] ER REPRESENTATIVE * Raysa Nevarez MD - 05/01/2019 8:44 [...] results for input(s): CDIFFTOXINAB in the last 35889 hours. Recent Labs Component Name 04/24/19 1141 SEDRATE 70* Recent Labs Component Name 04/24/19 1140 08/15/17 0348 08/09/17 0745 CRP 1.41* 4.1* 32.0* No results for input(s): CK in the last 34335 hours. .No results for input(s): VANCOTROUGH, VANCOPEAK, VANCSERIES in the last 56260 hours. Invalid input(s): VANCORAND Recent Labs Component [...] the spine with epidural abscess treated at [facility] [address] -- left THR Plan --surgery tomorrow - will continue on vanc based on prior cx and rifampin with hardware - monitor labs Please be advised that part of this text was done using voice recognition software. Errors may havebeen missed upon review. Raysa Nevarez MD ER REPRESENTATIVE * Alberto De Los Santos MD - 05/01/2019 7:30 AM CST Images from the original note were not included. [facility] Orthopedic Surgery Daily Progress Note José Miguel Keys, 68 year old, male : 1950 CSN: [id number] Primary Care Physician: Briana Medeiros MD - [...] Procedure Component Value - Date/Time CULTURE MRSA [[id number]] (Normal) Collected: 04/29/192140 Lab Status: Final result Specimen: Micro from Rectum Updated: 05/01/19523 Culture Negative for methicillin-resistant Staphylococcus aureus (MRSA) CULTURE VRE [[id number]] (Abnormal) Collected: 04/29/192140 Lab Status: Final result Specimen: Micro from Rectum Updated: 05/01/19 06 Culture Growth of Enterococcus species vancomycin-resistant (VRE) Narrative: For vancomycin-resistant enterococci (VRE), contact precautions are required. For any questions, call Infection Prevention. CULTURE ABSCESS+GRAM STAIN [[id number]] Collected: 04/29/192140 Lab Status: Preliminary result Specimen: Micro from Hip Updated: 04/30/19627 Gram Stain Rare Polymorphonuclear cells No organisms seen CULTURE BLOOD [[id number]] Collected: 04/29/191908 Lab Status: Preliminary result Specimen: Blood Peripheral Updated: 04/30/192199 Culture No growth 24 hours CULTURE BLOOD [[id number]] Collected: 04/29/191908 Lab Status: Preliminary result Specimen: Blood Peripheral Updated: 04/30/192199 Culture No growth 24 hours CULTURE MRSA [[id number]] (Abnormal) Collected: 04/29/191755 Lab Status: Final result [...] De Los Santos MD 05/01/2019 7:30 AM ER REPRESENTATIVE * Lani Gomez RN - 05/01/2019 4:57 [...] Will continue to monitor. Lani Gomez rn ER REPRESENTATIVE * Karina Slaguhter RN - 04/30/2019 7:33 PM CST Pt [...] monitor. Karina Slaughter RN 04/30/2019 7:36 PM ER REPRESENTATIVE * Kev Ordonez MD - 04/30/2019 5:20 [...] results for input(s): MAGMGDL in the last 70449 hours. Recent Labs Component Name 09/19/17 0243 [...] Feel free to text page me through Sanghvi, login smsl ER REPRESENTATIVE * Azeb Dye RN - 04/30/2019 3:06 PM CST Case Management Initial Assessment Case Management screen completed & Welcome Letter given. 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 Recurrent wound dehiscence with drainage. Poss sx. Basic Needs Assessment (BNA) Score: 9 Complex Needs Assessment (CASTING ASSISTANT) Score: 10 Social Support Domain Score: 2 Medical Status and Health Trajectory Domain Score: 8 Medical Home and Access to Services Domain Score: 0 Recommended Interventions for Patient:: Acupressure Therapist, Palliative Care, Physical Therapy, Occupational Therapy and Nutritional Services Comment: pt will need HHC order if to d/c home. Nutrition consulted. Awaiting POC to determine needs. Met with patient Lives with: Spouse Family Support (name and phone): Extended Emergency Contact Information Primary Emergency Contact: Trinity Keys Address: [address] [place] [address] [place] [address] [facility] [place] Relation: Spouse Boomswing Operator needed? No Anticipated Discharge Date: 05/03/19 Prior Level of Functioning: Anticipated level of care at discharge: Comment: TBD Transportation at Discharge: Family Transportation to MD appointments:Family Equipment at Home: walker Additional equipment needed at home but does not have: TBD If no PCP, action taken: n/s Pharmacy benefit: Yes Acupressure Therapist Referral: Not at this time If patient requires HHC at discharge, he/she requests: Pt's verified [facility] Will continue to follow. For any questions or needs please contact: Railroad Car Letterer Name/Phone number: Azeb Dye RN [phone] ER REPRESENTATIVE * Raysa Nevarez MD - 04/30/2019 12:59 [...] results for input(s): CDIFFTOXINAB in the last 79635 hours. Recent Labs Component Name 04/24/19 1141 SEDRATE 70* Recent Labs Component Name 04/24/19 1140 08/15/17 0348 08/09/17 0745 CRP 1.41* 4.1* 32.0* No results for input(s): CK in the last 17831 hours. .No results for input(s): VANCOTROUGH, VANCOPEAK, VANCSERIES in the last 00707 hours. Invalid input(s): VANCORAND Recent Labs Component [...] the spine with epidural abscess treated at [facility] [address] -- left THR Plan -- surgery planned in in June with removal of HW - will continue on vanc based on prior cx and rifampin with hardware - monitor labs Discussed with Dr. Alexander Please be advised that part of this text was done using voice recognition software. Errors may havebeen missed upon review. Raysa Nevarez MD ER REPRESENTATIVE * Karina Slaughter RN - 04/30/2019 10:29 AM CST Problem: Infection Goal: Signs and symptoms of infections are decreased or avoided Outcome: Ongoing Antibiotics given as ordered Problem: Isolation Goal: Prevent Transmission of Infection Outcome: Ongoing PPE worn Problem: Pain/Discomfort Goal: Patient uses pharmacological and non-pharmacological pain management strategies. Outcome: Ongoing Pain medication given as needed ER REPRESENTATIVE * Leah Franklin RCP - 04/30/2019 7:40 AM CST Mr Keys received his 0800, 1400 treatments; he remains on room air; will continue to monitor. Leah Franklin, Respiratory Care Practitioner 04/30/2019 1:58 PM ER REPRESENTATIVE * Alberto De Los Santos MD - 04/30/2019 6:49 AM CST [facility] Orthopedic Surgery Daily Progress Note José Miguel Keys, 68 year old, male : 1950 CSN: [id number] Primary Care Physician: Briana Medeiros MD - [...] Procedure Component Value - Date/Time CULTURE MRSA [[id number]] Collected: 04/29/192140 Lab Status: In process Specimen: Micro from Rectum Updated: 04/29/192319 CULTURE VRE [[id number]] Collected: 04/29/192140 Lab Status: In process Specimen: Micro from Rectum Updated: 04/29/192319 CULTURE ABSCESS+GRAM STAIN [[id number]] Collected: 04/29/192140 Lab Status: Preliminary result Specimen: Micro from Hip Updated: 04/30/19627 Gram Stain Rare Polymorphonuclear cells No organisms seen CULTURE BLOOD [[id number]] Collected: 04/29/191908 Lab Status: In process Specimen: Blood Peripheral Updated: 04/29/191917 CULTURE BLOOD [[id number]] Collected: 04/29/191908 Lab Status: In process Specimen: Blood Peripheral Updated: 04/29/191917 CULTURE MRSA [[id number]] Collected: 04/29/191755 Lab Status: In process Specimen: [...] De Los Santos MD 04/30/2019 6:49 AM ER REPRESENTATIVE * Chris Carter RN - 04/30/2019 12:01 [...] Height: Chris Carter RN 04/30/2019 7:55 AM ER REPRESENTATIVE * Chris Carter RN - 04/30/2019 12:01 AM CST Problem: Low Fall Risk (Score 7-10) Goal: Patient will remain as independent as possible. Outcome: Ongoing Problem: Infection Goal: Signs and symptoms of infections are decreased or avoided Outcome: Ongoing Problem: Isolation Goal: Prevent Transmission of Infection Outcome: Ongoing ER REPRESENTATIVE * Oziel De Los Santos RN - [...] Call light within reach Continue to monitor ER REPRESENTATIVE * Cheryl Mccoy PharmD - 04/29/2019 1:17 [...] monitor. Cheryl Mccoy PharmD 04/29/2019 1:18 PM ER REPRESENTATIVE * Hoa Poe - 04/29/2019 6:56 AM [...] 0643 by Hoa Poe RN Outcome: Ongoing ER REPRESENTATIVE * Hoa Poe - 04/29/2019 6:56 AM CST Problem: Isolation Goal: Prevent Transmission of Infection 04/29/2019 0656 by Hoa Poe RN Outcome: Ongoing 04/29/2019 0656 by Hoa Poe RN Outcome: Ongoing 04/29/2019 0643 by Hoa Poe RN Outcome: Ongoing ER REPRESENTATIVE * Hoa Poe - 04/29/2019 6:44 AM CST Patient presents AxO 3-4 able to make needs known to staff. Ambulates with walker on a normal bases; however uses a wheelchair for longer distances per . Direct admit from [facility] to [facility] due to the suspicion of sepsis [...] facility. Report called to nurse from [facility] [phone]. Allergy documented, fall precautions in place. Patient [...] send valuable home to include cellphone and dna sequencing associate that the ministry recommends to send valuable to security due to not being able to monitor items throughout his stay. Both verbalized understanding. ER REPRESENTATIVE * Hoa Poe - 04/29/2019 6:43 AM [...] Goal: Prevent Transmission of Infection Outcome: Ongoing ER REPRESENTATIVE documented in this encounter H&P Notes * Dwayne Nichols SENIOR NURSE MANAGER-CARPENTER MINE - 04/29/2019 5:49 AM CST H&P for Dr[facility] Dipak Nichols SENIOR NURSE MANAGER- NUISANCE WILDLIFE CONTROL OPERATOR HPI 68 yo male with a history [...] file Gets together: Not on file Attends mu-ism service: Not on file Active member of [...] by mouth once daily ??? nystatin (NYSTOP) 714450 UNIT/GM powder Apply to affected area 2 [...] as needed. ??? vitamin D, ergocalciferol, (DRISDOL) 45500 UNITS capsule Take 50,000 Units by mouth [...] retention, urinary frequency, incontinence, passage of stones THIRD SHIFT LIEUTENANT: Cranial: disturbances of smell, visual disturbances, facial [...] results for input(s): TROPPOCT in the last 99328 hours. No results for input(s): TROPONIN in the last 41972 hours. No results for input(s): BNPPOCT in the last 15607 hours. No results for input(s): CKMBPOCT in the last 71488 hours. No results for input(s): CKMB in the last 70866 hours. No orders to display ASSESSMENT/PLAN Right [...] guided by the work up described above. ER REPRESENTATIVE Associated attestation - Kev Ordonez MD - 04/29/2019 4:55 PM CAREER REPRESENTATIVE [facility] Hospitalist History and Physical I have [...] Feel free to text page me through Sanghvi, login smsl documented in this encounter Consult Notes * Anika De León LPN - 05/06/2019 12:26 PM CSTAssociated Order(s): IP CONSULT TO HOME HEALTH CARE Home health referral received. Per patient he is currently open with [facility]. H&P, Wound orders faxed to [facility] at this time. Thanks, ANIKA DE LEÓN LPN [facility] Health at Home Home Health [employer] [phone] After 4:30 or over the weekend call [phone] option 1 ER REPRESENTATIVE * Lana Narayanan, RD/LD - 04/30/2019 11:01 [...] results for input(s): PREALBUMIN in the last 81860 hours. No data found. PERTINENT MEDICATIONS FOR [...] AICHA Barrera 04/30/2019 11:21 AM Ascom 4715 ER REPRESENTATIVE * Armida Gomez MD - 04/29/2019 6:40 [...] cirrhosis, left THR,h/o MRSA sepsis treated at [facility] in 2018, complicated with epidural abscess [...] ??? S/P PICC central line placement 02/13/2019 [facility] VAT R basilic ??? Seizures ??? [...] puffy, itchy ??? Scopace [Scopolamine] Other and THIRD SHIFT LIEUTENANT Dysfunction delirium Exam Vitals: 04/29/19 0526 04/29/19 [...] results for input(s): CDIFFTOXINAB in the last 05253 hours. Recent Labs Component Name 04/24/19 1141 SEDRATE 70* Recent Labs Component Name 04/24/19 1140 08/15/17 0348 08/09/17 0745 CRP 1.41* 4.1* 32.0* No results for input(s): CK in the last 80046 hours. .No results for input(s): VANCOTROUGH, VANCOPEAK, VANCSERIES in the last 62328 hours. Invalid input(s): VANCORAND Recent Labs Component [...] the spine with epidural abscess treated at [facility]2018 with cage in place -- left THR Plan - consider Ct of the rt hip to r/o deeper abscess - pls cx drainage - ortho may plan for surgery in am? - will continue on vanc based on prior cx and will add rifampin with hardware - monitor labs - consider bcx Armida Gomez MD ER REPRESENTATIVE * Alberto De Los Santos MD - 04/29/2019 8:12 AM CST [facility] Orthopedic Surgery Consultation Note José Miguel Keys, 68 year old, male : 1950 CSN: [id number] Primary Care Physician: Briana Medeiros MD Chief Complaint No chief complaint on file. Admission Date/Time: 04/29/2019 5:18 AM Today's Date/Time: 04/29/2019 8:12 AM HPI Consulting Service: medicine [facility] Orthopedic Surgery consulted for evaluation/management of: [...] yesterday with new wound drainage. Transferred to [facility] for higher level of care. He [...] puffy, itchy ??? Scopace [Scopolamine] Other and THIRD SHIFT LIEUTENANT Dysfunction delirium Medications Current Facility-Administered Medications Medication [...] De Los Santos MD 04/29/2019 8:12 AM ER REPRESENTATIVE documented in this encounter OR Notes * Brief Op Note - Alberto De Los Santos MD - 05/02/2019 1:47 PM CAREER REPRESENTATIVE Brief Op Note Procedure: IRRIGATION AND DEBRIDEMENT RIGHT HIP ABSCESS Patient Name: José Miguel Keys Date of Service: 05/02/2019 Pre-Op Diagnosis: Diagnosis unknown [R69] Post-Op Diagnosis: right hip superficial abscess Surgeon(s) and Role: * Larry Alexander MD - Primary Primary School Teacher(s): Justin De Los Santos MD Anesthesia Type: [...] deep culture. Alberto De Los Santos MD ER REPRESENTATIVE * Operative - Larry Alexander MD - [...] application right hip/incisional wound VAC application Surgeon: Primary School Teacher: Indications for procedure: Patient is a 5-year-old [...] procedure and I was present entire case ER REPRESENTATIVE documented in this encounter Miscellaneous Notes * ACP (Advance Care Planning) - Dwayne Nichols, JOHN-CARPENTER MINE - 04/29/2019 9:48 AM CST Advanced Care [...] as an Advanced Directive. Total time spent [id number] in education and discussion related to advanced care plannin minutes. SHAGUFTA Vargas 04/29/2019 ER REPRESENTATIVE documented in this encounter Plan of Treatment Upcoming Encounters Date Type Department Care Team (Late st Contact Info) Description 07/09/2024 12:30 PM CAREER REPRESENTATIVE Office Visit [facility] - GI [address] [place] [address], [place] [address] Twin Miller MD [address] [place] [address] [place] [address] 09/19/2024 2:00 PM CDT Office Visit [facility] - Orthopedic Surgery [facility] [place] [id number] Larry Alexander MD [address] [facility] [address] [place] [address] documented as of this encounter Goals Goal [...] CARDIAC RHYTHM STRIP ORDER 05/07/2019 6:01 PM CAREER REPRESENTATIVE CBC W AUTO DIFFERENTIAL AM Draw 05/06/2019 2:31 AM CAREER REPRESENTATIVE BASIC METABOLIC PANEL (CALCIUM TOTAL) AM Draw 05/06/2019 2:31 AM CAREER REPRESENTATIVE PLATELET COUNT AUTO AM Draw 05/05/2019 2 :15 AM CAREER REPRESENTATIVE BASIC METABOLIC PANEL (CALCIUM TOTAL) AM Draw 05/05/2019 2:15 AM CAREER REPRESENTATIVE BASIC METABOLIC PANEL (CALCIUM TOTAL) AM Draw 05/04/2019 3:07 AM CAREER REPRESENTATIVE VANCOMYCIN LEVEL TROUGH Timed 05/03/2019 1:21 PM CAREER REPRESENTATIVE CBC W AUTO DIFFERENTIAL AM Draw 05/03/2019 2:46 AM CAREER REPRESENTATIVE BASIC METABOLIC PANEL (CALCIUM TOTAL) AM Draw 05/03/2019 2:46 AM CAREER REPRESENTATIVE GLUCOSE - POINT OF CARE Routine 05/02/2019 3:23 PM CAREER REPRESENTATIVE CULTURE FLUID+GRAM STAIN STAT 05/02/2019 2:24 PM CAREER REPRESENTATIVE Diagnosis unknown CULTURE ANAEROBE STAT 05/02/2019 2:24 PM CAREER REPRESENTATIVE Diagnosis unknown PREPARE RBC LEUKOREDUCED UNIT STAT 05/02/2019 2:15 PM CAREER REPRESENTATIVE CULTURE FLUID+GRAM STAIN STAT 05/02/2019 2:09 PM CAREER REPRESENTATIVE Diagnosis unknown CULTURE ANAEROBE STAT 05/02/2019 2:09 PM CAREER REPRESENTATIVE Diagnosis unknown TYPE + SCREEN PANEL STAT 05/02/2019 2 :07 PM CAREER REPRESENTATIVE GA NEG PRESS WND TX PER SESS; TOT SURF </= 50 SQ CM 05/02/2019 12:37 PM CAREER REPRESENTATIVE Diagnosis unknown Special Needs NO REP NEEDED- 05-01-MAB### 004 ### NEEDS C-ARM GA INCIS/DRAIN PELVIS/HIP,DEEP ABSCESS 05/02/2019 12:37 PM CAREER REPRESENTATIVE Diagnosis unknown Special Needs NO REP NEEDED- 05-01-MAB### 004 ### NEEDS C-ARM CBC W AUTO DIFFERENTIAL AM Draw 05/02/2019 4:10 AM CAREER REPRESENTATIVE COMPREHENSIVE METABOLIC PANEL AM Draw 05/02/2019 4:10 AM CAREER REPRESENTATIVE ECHOCARDIOGRAM 2D WITH DOPPLER Routine 05/01/2019 6:07 PM CAREER REPRESENTATIVE 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, subsequent encounter Coronary artery disease without angina pectoris, unspecified vessel or lesion type, unspecified whether [place] or transplanted heart Chronic atrial fibrillation (HCC) EKG 12-LEAD Routine 05/01/2019 3:54 PM CAREER REPRESENTATIVE 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, subsequent encounter XR CHEST 1VW PORTABLE Routine 05/01/2019 3:41 PM CAREER REPRESENTATIVE 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, subsequent encounter Coronary artery disease without angina pectoris, unspecified vessel or lesion type, unspecified whether [place] or transplanted heart VANCOMYCIN LEVEL TROUGH Timed 05/01/2019 7:49 AM CAREER REPRESENTATIVE CBC W AUTO DIFFERENTIAL AM Draw 05/01/2019 2:44 AM CAREER REPRESENTATIVE BASIC METABOLIC PANEL (CALCIUM TOTAL) AM Draw 05/01/2019 2:44 AM CAREER REPRESENTATIVE OT EVAL AND TREAT Routine 04/30/2019 5:2 3 PM CAREER REPRESENTATIVE PT EVAL AND TREAT Routine 04/30/2019 5:2 3 PM CAREER REPRESENTATIVE PT-INR AM Draw 04/30/2019 2:42 AM CAREER REPRESENTATIVE CBC W AUTO DIFFERENTIAL AM Draw 04/30/2019 2:42 AM CAREER REPRESENTATIVE COMPREHENSIVE METABOLIC PANEL AM Draw 04/30/2019 2:42 AM CAREER REPRESENTATIVE CULTURE ABSCESS+GRAM STAIN Routine 04/29/2019 9:41 PM CAREER REPRESENTATIVE CULTURE VRE Routine 04/29/2019 9:41 PM CAREER REPRESENTATIVE CULTURE MRSA Routine 04/29/2019 9:41 PM CAREER REPRESENTATIVE CULTURE BLOOD Timed 04/29/2019 7:09 PM CAREER REPRESENTATIVE CULTURE BLOOD Timed 04/29/2019 7:09 PM CAREER REPRESENTATIVE CULTURE MRSA Routine 04/29/2019 5:56 PM CAREER REPRESENTATIVE XR HIP RIGHT 2VW OR MORE Routine 04/29/2019 12:18 PM CAREER REPRESENTATIVE 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 Scanned Document CARDIAC SERVICES ORD ERABLES * (ABNORMAL) BASIC METABOLIC PANEL (CALCIUM TOTAL) (05/06/2019 2:31 AM CAREER REPRESENTATIVE) [facility] Signature Glucose 88 70 - 105 mg/dL 05/06/2019 3:22 AM CAREER REPRESENTATIVE [facility] Sodium 137 136 - 145 mmol/L 05/06/2019 3:22 AM [facility] Potassium 3.2(L) 3.5 - 4.7 mmol/L 05/06/2019 3:22 AM [facility] Chloride 100 98 - 107 mmol/L 05/06/2019 3:22 AM [facility] CO2 26 23 - 31 mmol/L 05/06/2019 3:22 AM [facility] Calcium 9.2 8.4 - 10.4 mg/dL 05/06/2019 3:22 AM [facility] Anion Gap 11 8 - 16 mmol/L 05/06/2019 3:22 AM [facility] BUN 22 8.4 - 25.7 mg/dL 05/06/2019 3:22 AM [facility] Creatinine 1.15 0.72 - 1.25 mg/dL 05/06/2019 3:22 AM [facility] eGFR by MDRD >60 mL/min/1.7 3m2 05/06/2019 3:22 AM [facility] eGFR by MDRD >60 mL/min/1.7 3m2 05/06/2019 3:22 AM [facility] Blood BLOOD SPECIMEN / Unknown Lab Venipuncture / Unknown 05/06/2019 2:31 AM CAREER REPRESENTATIVE 05/06/2019 3:02 AM [facility] Kev Ordonez MD [facility] Organization Address City/State/[facility] Co de Phone Number [facility] [address] [place] [address] * (ABNORMAL) CBC W AUTO DIFFERENTIAL (05/06/2019 2:31 AM [facility]) [facility] WBC 6.9 4.4 - 10.7 x10E9/L 05/06/2019 3:09 AM [facility] WBC Corrected 05/06/2019 3:09 AM [facility] RBC 3.82 3.80 - 5.40 x10E12/L 05/06/2019 3:09 AM [facility] Hemoglobin 10.1(L) 12.0 - 17.6 gm/dL 05/06/2019 3:09 AM [facility] Hematocrit 32.6(L) 35.2 - 51.7 % 05/06/2019 3:09 AM [facility] MCV 85.3 80.7 - 98.3 fl 05/06/2019 3:09 AM [facility] MCH 26.4(L) 26.7 - 34.0 pg 05/06/2019 3:09 AM [facility] MCHC 31.0 30.8 - 35.9 gm/dL 05/06/2019 3:09 AM [facility] Platelet Count 176 153 - 416 x10E9/L 05/06/2019 3:09 AM [facility] RDW-CV 15.8(H) 12.1 - 14.9 % 05/06/2019 3:09 AM [facility] MPV 13.6(H) 9.4 - 12.9 fl 05/06/2019 3:09 AM [facility] Neutrophils % 61.5 44.0 - 73.0 % 05/06/2019 3:09 AM [facility] Lymphocytes % 11.9(L) 20.0 - 43.0 % 05/06/2019 3:09 AM [facility] Monocytes % 11.5 5.0 - 13.0 % 05/06/2019 3:09 AM [facility] Eosinophils % 14.1(H) 0.0 - 6.0 % 05/06/2019 3:09 AM [facility] Basophils % 0.6 0.0 - 2.0 % 05/06/2019 3:09 AM [facility] Immature Granulocytes 0.4 0 - 1 % 05/06/2019 3:09 AM [facility] Neutrophil Absolute 4.22 2.01 - 7.14 x10E9/L 05/06/2019 3:09 AM [facility] Lymphocytes Absolute 0.82(L) 1.07 - 3.94 x10E9/L 05/06/2019 3:09 AM [facility] Monocytes Absolute 0.79 0.26 - 1.07 x10E9/L 05/06/2019 3:09 AM [facility] Eosinophils Absolute 0.97(H) 0 - 0.47 x10E9/L 05/06/2019 3:09 AM [facility] Basophils Absolute 0.04 0 - 0.08 x10E9/L 05/06/2019 3:09 AM [facility] Immature Granulocytes Absolute 0.03 0.00 - 0.06 x10E9/L 05/06/2019 3:09 AM [facility] nRBC Auto 0 /100 WBC 05/06/2019 3:09 AM [facility] Blood BLOOD SPECIMEN / Unknown Lab Venipuncture / Unknown 05/06/2019 2:31 AM CAREER REPRESENTATIVE 05/06/2019 3:02 AM CAREER REPRESENTATIVE Kev Ordonez MD LAB - HEMATOLOGY ORD ERABLES [facility] [address] [place] [address] * (ABNORMAL) BASIC METABOLIC PANEL (CALCIUM TOTAL) (05/05/2019 2:15 AM [facility]) Glucose 98 70 - 105 mg/dL 05/05/2019 3:13 AM [facility] Sodium 137 136 - 145 mmol/L 05/05/2019 3:13 AM [facility] Potassium 3.1(L) 3.5 - 4.7 mmol/L 05/05/2019 3:13 AM [facility] Chloride 102 98 - 107 mmol/L 05/05/2019 3:13 AM [facility] CO2 25 23 - 31 mmol/L 05/05/2019 3:13 AM [facility] Calcium 9.1 8.4 - 10.4 mg/dL 05/05/2019 3:13 AM [facility] Anion Gap 10 8 - 16 mmol/L 05/05/2019 3:13 AM [facility] BUN 20 8.4 - 25.7 mg/dL 05/05/2019 3:13 AM [facility] Creatinine 0.96 0.72 - 1.25 mg/dL 05/05/2019 3:13 AM [facility] eGFR by MDRD >60 mL/min/1.7 3m2 05/05/2019 3:13 AM [facility] eGFR by MDRD >60 mL/min/1.7 3m2 05/05/2019 3:13 AM [facility] Blood BLOOD SPECIMEN / Unknown Lab Venipuncture / Unknown 05/05/2019 2:15 AM CAREER REPRESENTATIVE 05/05/2019 2:39 AM CAREER REPRESENTATIVE Michelle Pratt MD LAB - CHEMISTRY ORD ERABLES Performing Organization Address City/[facility]/ZIP Co de Phone Number [facility] [address] [place] [address] * PLATELET COUNT AUTO (05/05/2019 2:15 AM CAREER REPRESENTATIVE) Platelet Count 157 153 - 416 x10E9/L 05/05/2019 3:03 AM [facility] Blood BLOOD SPECIMEN / Unknown Lab Venipuncture / Unknown 05/05/2019 2:15 AM CAREER REPRESENTATIVE 05/05/2019 2:38 AM CAREER REPRESENTATIVE Michelle Pratt MD LAB - HEMATOLOGY OR DERABLES Performing Organization Address [facility] Co de Phone Number [facility] [address] [place] [id number] * (ABNORMAL) BASIC METABOLIC PANEL (CALCIUM TOTAL) (05/04/2019 3:07 AM CAREER REPRESENTATIVE) Glucose 107(H) 70 - 105 mg/dL 05/04/2019 3:52 AM [facility] Sodium 135(L) 136 - 145 mmol/L 05/04/2019 3:52 AM [facility] Potassium 3.2(L) 3.5 - 4.7 mmol/L 05/04/2019 3:52 AM [facility] Chloride 100 98 - 107 mmol/L 05/04/2019 3:52 AM [facility] CO2 27 23 - 31 mmol/L 05/04/2019 3:52 AM [facility] Calcium 9.1 8.4 - 10.4 mg/dL 05/04/2019 3:52 AM [facility] Anion Gap 8 8 - 16 mmol/L 05/04/2019 3:52 AM [facility] BUN 19 8.4 - 25.7 mg/dL 05/04/2019 3:52 AM [facility] Creatinine 1.12 0.72 - 1.25 mg/dL 05/04/2019 3:52 AM [facility] eGFR by MDRD >60 mL/min/1.7 3m2 05/04/2019 3:52 AM [facility] eGFR by MDRD >60 mL/min/1.7 3m2 05/04/2019 3:52 AM CAREER REPRESENTATIVE [facility] Blood BLOOD SPECIMEN / Unknown Lab Venipuncture / Unknown 05/04/2019 3:07 AM CAREER REPRESENTATIVE 05/04/2019 3:19 AM CAREER REPRESENTATIVE Michelle Pratt MD LAB - CHEMISTRY ORD SP Performing Organization Address [facility]/ZIP Co de Phone Number [facility] [address] [place], [place] [phone] * (ABNORMAL) VANCOMYCIN LEVEL TROUGH (05/03/2019 1:21 PM CAREER REPRESENTATIVE) Vancomycin Trough 22.9(H) 10.0 - 20.0 ug/mL 05/03/2019 2:04 PM [facility] Blood BLOOD SPECIMEN / Unknown Lab Venipuncture / Unknown 05/03/2019 1:21 PM CAREER REPRESENTATIVE 05/03/2019 1:40 PM CAREER REPRESENTATIVE Raysa Nevarez MD LAB - CHEMISTRY ORDMarj KLINE Performing Organization Address [facility] Co de Phone Number [facility] [address] [place], [place] [phone] * (ABNORMAL) CBC W AUTO DIFFERENTIAL (05/03/2019 2:46 AM CAREER REPRESENTATIVE) WBC 9.6 4.4 - 10.7 x10E9/L 05/03/2019 3:46 AM CAREER REPRESENTATIVE [facility] WBC Corrected 05/03/2019 3:46 AM CAREER REPRESENTATIVE [facility] RBC 4.22 3.80 - 5.40 x10E12/L 05/03/2019 3:46 AM CAREER REPRESENTATIVE [facility] Hemoglobin 11.2(L) 12.0 - 17.6 gm/dL 05/03/2019 3:46 AM CAREER REPRESENTATIVE [facility] Hematocrit 38.1 35.2 - 51.7 % 05/03/2019 3:46 AM CAREER REPRESENTATIVE [facility] MCV 90.3 80.7 - 98.3 fl 05/03/2019 3:46 AM CAREER REPRESENTATIVE [facility] MCH 26.5(L) 26.7 - 34.0 pg 05/03/2019 3:46 AM CAREER REPRESENTATIVE [facility] MCHC 29.4(L) 30.8 - 35.9 gm/dL 05/03/2019 3:46 AM [facility] Platelet Count 138(L) 153 - 416 x10E9/L 05/03/2019 3:46 AM [facility] RDW-CV 16.0(H) 12.1 - 14.9 % 05/03/2019 3:46 AM [facility] MPV 13.6(H) 9.4 - 12.9 fl 05/03/2019 3:46 AM [facility] Neutrophils % 73.5(H) 44.0 - 73.0 % 05/03/2019 3:46 AM [facility] Lymphocytes % 6.1(L) 20.0 - 43.0 % 05/03/2019 3:46 AM [facility] Monocytes % 9.9 5.0 - 13.0 % 05/03/2019 3:46 AM [facility] Eosinophils % 9.5(H) 0.0 - 6.0 % 05/03/2019 3:46 AM [facility] Basophils % 0.6 0.0 - 2.0 % 05/03/2019 3:46 AM [facility] Immature Granulocytes 0.4 0 - 1 % 05/03/2019 3:46 AM [facility] Neutrophil Absolute 7.04 2.01 - 7.14 x10E9/L 05/03/2019 3:46 AM [facility] Lymphocytes Absolute 0.58(L) 1.07 - 3.94 x10E9/L 05/03/2019 3:46 AM [facility] Monocytes Absolute 0.95 0.26 - 1.07 x10E9/L 05/03/2019 3:46 AM [facility] Eosinophils Absolute 0.91(H) 0 - 0.47 x10E9/L 05/03/2019 3:46 AM [facility] Basophils Absolute 0.06 0 - 0.08 x10E9/L 05/03/2019 3:46 AM [facility] Immature Granulocytes Absolute 0.04 0.00 - 0.06 x10E9/L 05/03/2019 3:46 AM [facility] nRBC Auto 0 /100 WBC 05/03/2019 3:46 AM [facility] Blood BLOOD SPECIMEN / Unknown Lab Venipuncture / Unknown 05/03/2019 2:46 AM CAREER REPRESENTATIVE 05/03/2019 3:36 AM CAREER REPRESENTATIVE Kev Ordonez MD LAB - HEMATOLOGY ORD SP Performing Organization Address [facility]/ZIP Co de Phone Number [facility] [address] [place] [address] * BASIC METABOLIC PANEL (CALCIUM TOTAL) (05/03/2019 2:46 AM CAREER REPRESENTATIVE) [facility] Glucose 86 70 - 105 mg/dL 05/03/2019 4:05 AM [facility] Sodium 140 136 - 145 mmol/L 05/03/2019 4:05 AM [facility] Potassium 4.2 3.5 - 4.7 mmol/L 05/03/2019 4:05 AM [facility] Chloride 104 98 - 107 mmol/L 05/03/2019 4:05 AM [facility] CO2 24 23 - 31 mmol/L 05/03/2019 4:05 AM [facility] Calcium 9.4 8.4 - 10.4 mg/dL 05/03/2019 4:05 AM [facility] Anion Gap 12 8 - 16 mmol/L 05/03/2019 4:05 AM [facility] BUN 16 8.4 - 25.7 mg/dL 05/03/2019 4:05 AM [facility] Creatinine 1.04 0.72 - 1.25 mg/dL 05/03/2019 4:05 AM [facility] eGFR by MDRD >60 mL/min/1.7 3m2 05/03/2019 4:05 AM [facility] eGFR by MDRD >60 mL/min/1.7 3m2 05/03/2019 4:05 AM [facility] Blood BLOOD SPECIMEN / Unknown Lab Venipuncture / Unknown 05/03/2019 2:46 AM CAREER REPRESENTATIVE 05/03/2019 3:37 AM CAREER REPRESENTATIVE Kev Ordonez MD LAB - CHEMISTRY ROYCE KLINE Performing Organization Address City/[facility]/ZIP Co de Phone Number [facility] [address] [place], [place] [phone] * GLUCOSE - POINT OF CARE (05/02/2019 3:23 PM CAREER REPRESENTATIVE) Glucose WB/POC 101 70 - 106 mg/dL 05/02/2019 6:02 PM CAREER REPRESENTATIVE [facility] Specimen Type Arterial/C apillary 05/02/2019 6:02 PM CAREER REPRESENTATIVE [facility] Blood BLOOD SPECIMEN / Unknown 05/02/2019 3:23 PM CAREER REPRESENTATIVE 05/02/2019 6:02 PM CAREER REPRESENTATIVE Kev Ordonez MD LAB - POINT OF CARE ORDERABLES [facility] [address] [place] [address] * CULTURE FLUID+GRAM STAIN (05/02/2019 2:24 PM CAREER REPRESENTATIVE) Culture No growth UMESH 05/09/2019 6:44 AM CAREER REPRESENTATIVE [facility] Gram Stain Rare Polymorphonuclear cells 05/09/2019 6:44 AM CAREER REPRESENTATIVE [facility] Gram Stain No organisms seen 019 6:44 AM [facility] Fluid BODY FLUID SPECIMEN / Unknown Collection / Unknown 05/02/2019 2:24 PM CAREER REPRESENTATIVE 05/02/2019 3:22 PM CAREER REPRESENTATIVE Comment:Pre-op diagnosis: Diagnosis unknown [R69] Narrative [facility] - 05/09/2019 6:44 AM CAREER REPRESENTATIVE Surgical Description: Post Irrigation Right Hip Fluid Larry Alexander MD LAB - MICROBIOLOGY ORDERABLES Performing Organization Address City/[facility]/ZIP Co de Phone Number [facility] [address] [place], [place] [address] [phone] * CULTURE ANAEROBE (05/02/2019 2:24 PM CAREER REPRESENTATIVE) Culture No anaerobic organisms isolated UMESH 05/07/2019 12:40 PM [facility] Fluid BODY FLUID SPECIMEN / Unknown Collection / Unknown 05/02/2019 2:24 PM CAREER REPRESENTATIVE 05/02/2019 3:22 PM CAREER REPRESENTATIVE Comment:Pre-op diagnosis: Diagnosis unknown [R69] Narrative [facility] - 05/07/2019 12:40 PM CAREER REPRESENTATIVE Surgical Description: Post Irrigation Right Hip Fluid Larry Alexander MD LAB - MICROBIOLOGY ORDERABLES [facility] [address] [phone] * PREPARE (CROSSMATCH) RBC UNIT(S), 2 Units (05/02/2019 2:15 PM CAREER REPRESENTATIVE) Product Code [id number] [facility] Unit Donor # [id number] S [facility] ABO Donor Type A [facility] Rh Type Unit POS SM [facility] LAB Unit Status Ret'd [facility] ABO Rh Type Unit APOS [facility] Donor Unit Expiration Date [facility] Blood Type Barcode 6200 [facility] Product Code [id number] [facility] Unit Donor # [id number] S [facility] ABO Donor Type A [facility] Rh Type Unit POS [facility] LAB Unit Status Ret'd [facility] ABO Rh Type Unit APOS [facility] Donor Unit Expiration Date [facility] Blood Type Barcode 6200 [facility] Blood Bank BLOOD SPECIMEN / Unknown 05/02/2019 2:15 PM CAREER REPRESENTATIVE Larry Alexander MD LAB - BLOOD BANK OR DERABLES [facility] [address] [phone] * CULTURE FLUID+GRAM STAIN (05/02/2019 2:09 PM CAREER REPRESENTATIVE) Culture No growth UMESH 05/09/2019 6:44 AM [facility] Gram Stain No organisms seen 019 6:44 AM [facility] Gram Stain Light Polymorphonuclear cells 05/09/2019 6:44 AM [facility] Fluid BODY FLUID SPECIMEN / Unknown Collection / Unknown 05/02/2019 2:09 PM CAREER REPRESENTATIVE 05/02/2019 2:40 PM CAREER REPRESENTATIVE Comment:Pre-op diagnosis: Diagnosis unknown [R69] Narrative [facility] - 05/09/2019 6:44 AM CAREER REPRESENTATIVE Surgical Description: Right Hip Fluid Larry Alexander MD LAB - MICROBIOLOGY ORDERABLES Performing Organization Address [facility]/ZIP Co de Phone Number [facility] [address] [place] [address], [facility] [phone] * CULTURE ANAEROBE (05/02/2019 2:09 PM CAREER REPRESENTATIVE) Pathologist [facility] Culture No anaerobic organisms isolated UMESH 05/07/2019 12:42 PM CAREER REPRESENTATIVE [facility] Fluid BODY FLUID SPECIMEN / Unknown Collection / Unknown 05/02/2019 2:09 PM CAREER REPRESENTATIVE 05/02/2019 2:40 PM CAREER REPRESENTATIVE Comment:Pre-op diagnosis: Diagnosis unknown [R69] Narrative [facility] - 05/07/2019 12:42 PM CAREER REPRESENTATIVE Surgical Description: Right Hip Fluid Larry Alexander MD LAB - MICROBIOLOGY ORDERABLES Performing Organization Address [facility]/ZIP Co de Phone Number [facility] [address] [place] [address], [facility] [phone] * TYPE + SCREEN PANEL (05/02/2019 2:07 PM CAREER REPRESENTATIVE) Pathologist [facility] ABO A 05/02/2019 2:34 PM CAREER REPRESENTATIVE [facility] Rh Type Positive 05/02/2019 2:34 PM CAREER REPRESENTATIVE [facility] Comment:History checked. Antibody Screen Negative 05/02/2019 2:34 PM CAREER REPRESENTATIVE [facility] Blood Bank BLOOD SPECIMEN / Unknown Venipuncture / Unknown 05/02/2019 2:07 PM CAREER REPRESENTATIVE 05/02/2019 2:07 PM CAREER REPRESENTATIVE Larry Alexander MD LAB - BLOOD BANK OR DERABLES [facility] [address] [place] [address], [facility] [phone] * (ABNORMAL) COMPREHENSIVE METABOLIC PANEL (05/02/2019 4:10 AM CAREER REPRESENTATIVE) Pathologist [facility] Glucose 98 70 - 105 mg/dL 05/02/2019 6:02 AM [facility] Sodium 138 136 - 145 mmol/L 05/02/2019 6:02 AM [facility] Potassium 3.6 3.5 - 4.7 mmol/L 05/02/2019 6:02 AM [facility] Chloride 102 98 - 107 mmol/L 05/02/2019 6:02 AM [facility] CO2 27 23 - 31 mmol/L 05/02/2019 6:02 AM [facility] Calcium 9.4 8.4 - 10.4 mg/dL 05/02/2019 6:02 AM [facility] Anion Gap 9 8 - 16 mmol/L 05/02/2019 6:02 AM [facility] BUN 20 8.4 - 25.7 mg/dL 05/02/2019 6:02 AM [facility] Creatinine 1.13 0.72 - 1.25 mg/dL 05/02/2019 6:02 AM [facility] Alkaline Phosphatase 211(H) 40 - 150 U/L 05/02/2019 6:02 AM [facility] ALT 26 0 - 61 U/L 05/02/2019 6:02 AM [facility] AST 25 5 - 34 U/L 05/02/2019 6:02 AM [facility] Protein Total 7.3 6.4 - 8.3 gm/dL 05/02/2019 6:02 AM [facility] Albumin 3.6 3.2 - 4.6 gm/dL 05/02/2019 6:02 AM [facility] Bilirubin Total 1.1 0.2 - 1.2 mg/dL 05/02/2019 6:02 AM [facility] eGFR by MDRD >60 mL/min/1.7 3m2 05/02/2019 6:02 AM [facility] eGFR by MDRD >60 mL/min/1.7 3m2 05/02/2019 6:02 AM [facility] Blood BLOOD SPECIMEN / Unknown Lab Venipuncture / Unknown 05/02/2019 4:10 AM CAREER REPRESENTATIVE 05/02/2019 4:52 AM [facility] Kev Ordonez MD LAB - CHEMISTRY ROYCE KLINE [facility] Organization Address City/State/ZIP Co de Phone Number [facility] [address] [place] [address] * (ABNORMAL) CBC W AUTO DIFFERENTIAL (05/02/2019 4:10 AM [facility]) WBC 6.6 4.4 - 10.7 x10E9/L 05/02/2019 5:01 AM [facility] WBC Corrected 05/02/2019 5:01 AM [facility] RBC 4.12 3.80 - 5.40 x10E12/L 05/02/2019 5:01 AM [facility] Hemoglobin 10.8(L) 12.0 - 17.6 gm/dL 05/02/2019 5:01 AM [facility] Hematocrit 36.7 35.2 - 51.7 % 05/02/2019 5:01 AM [facility] MCV 89.1 80.7 - 98.3 fl 05/02/2019 5:01 AM [facility] MCH 26.2(L) 26.7 - 34.0 pg 05/02/2019 5:01 AM [facility] MCHC 29.4(L) 30.8 - 35.9 gm/dL 05/02/2019 5:01 AM [facility] Platelet Count 143(L) 153 - 416 x10E9/L 05/02/2019 5:01 AM [facility] RDW-CV 15.9(H) 12.1 - 14.9 % 05/02/2019 5:01 AM [facility] MPV 12.7 9.4 - 12.9 fl 05/02/2019 5:01 AM [facility] Neutrophils % 63.3 44.0 - 73.0 % 05/02/2019 5:01 AM [facility] Lymphocytes % 10.1(L) 20.0 - 43.0 % 05/02/2019 5:01 AM [facility] Monocytes % 11.3 5.0 - 13.0 % 05/02/2019 5:01 AM [facility] Eosinophils % 14.0(H) 0.0 - 6.0 % 05/02/2019 5:01 AM [facility] Basophils % 0.8 0.0 - 2.0 % 05/02/2019 5:01 AM [facility] Immature Granulocytes 0.5 0 - 1 % 05/02/2019 5:01 AM [facility] Neutrophil Absolute 4.16 2.01 - 7.14 x10E9/L 05/02/2019 5:01 AM [facility] Lymphocytes Absolute 0.66(L) 1.07 - 3.94 x10E9/L 05/02/2019 5:01 AM [facility] Monocytes Absolute 0.74 0.26 - 1.07 x10E9/L 05/02/2019 5:01 AM [facility] Eosinophils Absolute 0.92(H) 0 - 0.47 x10E9/L 05/02/2019 5:01 AM [facility] Basophils Absolute 0.05 0 - 0.08 x10E9/L 05/02/2019 5:01 AM [facility] Immature Granulocytes Absolute 0.03 0.00 - 0.06 x10E9/L 05/02/2019 5:01 AM [facility] nRBC Auto 0 /100 WBC 05/02/2019 5:01 AM [facility] Blood BLOOD SPECIMEN / Unknown Lab Venipuncture / Unknown 05/02/2019 4:10 AM CAREER REPRESENTATIVE 05/02/2019 4:52 AM CAREER REPRESENTATIVE Kev Ordonez MD LAB - HEMATOLOGY ORD ERABLES [facility] [address] [place] [address] * ECHOCARDIOGRAM 2D WITH DOPPLER (05/01/2019 6:07 PM CAREER REPRESENTATIVE) 05/01/2019 6:07 PM CAREER REPRESENTATIVE Narrative [facility] - 05/02/2019 9:[address] [facility] [address] [place] [address] Transthoracic Echocardiogram 2D, M-mode, Doppler, and Color Doppler Patient: JOSÉ MIGUEL KEYS MR number: [id number] Height: 71 in Weight: 219.6 lb BSA: 2.2 m?? Study date: 01-May-2019 : 1950 Age: 68 years Gender: Male Race: Allergies: PENICILLINS, LEVOFLOXACIN, SCOPOLAMINE Baby Formula Mixer: ??Gómez Finch Referring Physician: ??Kev Ordonez MD [...] Procedure Note Constantino Sims MD - 05/02/2019 [place] [address] Transthoracic Echocardiogram 2D, M-mode, Doppler, and Color Doppler Patient: JOSÉ MIGUEL KEYS MR number: [id number] Height: 71 in Weight: 219.6 lb BSA: 2.2 m?? Study date: 01-May-2019 : 1950 Age: 68 years Gender: Male Race: Allergies: PENICILLINS, LEVOFLOXACIN, SCOPOLAMINE Baby Formula Mixer: Gómez Finch Referring Physician: Kev Ordonez MD [...] Ordonez MD ECHO ORDERABLES Performing Organization Address [facility] Co de Phone Number [facility] [address] [place] [address] * EKG 12-LEAD (05/01/2019 3:54 PM CAREER REPRESENTATIVE) [facility] Ventricular Rate 82 BPM [facility] Atrial Rate 312 BPM [facility] QRS Duration ms 90 ms [facility] Q-T Interval ms 380 ms [facility] QTC Calculation (Bezet) 443 ms [facility] Calculated R Jackson -9 degrees [facility] Calculated T Jackson 42 degrees [facility] Interpretation EKG ATRIAL FIBRILLATION WITH PREMATURE VENTRICULAR OR ABERRANTLY CONDUCTED COMPLEXES ABNORMAL ECG Confirmed by MD Jane, Zhang ([id number]) on 05/02/2019 8:32:37 AM [facility] 05/01/2019 3:54 PM CAREER REPRESENTATIVE 05/02/2019 8:32 AM CAREER REPRESENTATIVE Kev Ordonez MD ECG ORDERABLES Performing Organization Address City/[facility] Co de Phone Number [facility] * XR CHEST 1VW PORTABLE (05/01/2019 3:41 PM CAREER REPRESENTATIVE) Anatomical Region Laterality Modality Chest Radiographic Shama ging 05/01/2019 3:49 PM CAREER REPRESENTATIVE Narrative 05/01/2019 3:50 PM CAREER REPRESENTATIVE Chest one view 1525 hours HISTORY: Infected [...] (ABNORMAL) VANCOMYCIN LEVEL TROUGH (05/01/2019 7:49 AM CAREER REPRESENTATIVE) Pathologist [facility] Vancomycin Trough 8.1(L) 10.0 - 20.0 ug/mL 05/01/2019 8:41 AM [facility] Blood BLOOD SPECIMEN / Unknown Lab Venipuncture / Unknown 05/01/2019 7:49 AM CAREER REPRESENTATIVE 05/01/2019 8:12 AM CAREER REPRESENTATIVE Armida Gomez MD LAB - CHEMISTRY ROYCE KLINE [facility] Organization Address City/State/ZIP Co de Phone Number [facility] [address] [place], [place] [id number] * BASIC METABOLIC PANEL (CALCIUM TOTAL) (05/01/2019 2:44 AM CAREER REPRESENTATIVE) Pathologist [facility] Glucose 89 70 - 105 mg/dL 05/01/2019 4:30 AM [facility] Sodium 141 136 - 145 mmol/L 05/01/2019 4:30 AM [facility] Potassium 4.7 3.5 - 4.7 mmol/L 05/01/2019 4:30 AM [facility] Chloride 106 98 - 107 mmol/L 05/01/2019 4:30 AM [facility] CO2 26 23 - 31 mmol/L 05/01/2019 4:30 AM [facility] Calcium 9.8 8.4 - 10.4 mg/dL 05/01/2019 4:30 AM [facility] Anion Gap 9 8 - 16 mmol/L 05/01/2019 4:30 AM [facility] BUN 25 8.4 - 25.7 mg/dL 05/01/2019 4:30 AM [facility] Creatinine 1.04 0.72 - 1.25 mg/dL 05/01/2019 4:30 AM [facility] eGFR by MDRD >60 mL/min/1.7 3m2 05/01/2019 4:30 AM [facility] eGFR by MDRD >60 mL/min/1.7 3m2 05/01/2019 4:30 AM [facility] Blood BLOOD SPECIMEN / Unknown Lab Venipuncture / Unknown 05/01/2019 2:44 AM CAREER REPRESENTATIVE 05/01/2019 3:34 AM CAREER REPRESENTATIVE Kev Ordonez MD LAB - CHEMISTRY [facility] Organization Address City/State/[facility] Co de Phone Number [facility] [address] [place] [address] * (ABNORMAL) CBC W AUTO DIFFERENTIAL (05/01/2019 2:44 AM CAREER REPRESENTATIVE) WBC 7.2 4.4 - 10.7 x10E9/L 05/01/2019 3:58 AM [facility] WBC Corrected 05/01/2019 3:58 AM [facility] RBC 3.98 3.80 - 5.40 x10E12/L 05/01/2019 3:58 AM [facility] Hemoglobin 10.6(L) 12.0 - 17.6 gm/dL 05/01/2019 3:58 AM [facility] Hematocrit 35.6 35.2 - 51.7 % 05/01/2019 3:58 AM [facility] MCV 89.4 80.7 - 98.3 fl 05/01/2019 3:58 AM [facility] MCH 26.6(L) 26.7 - 34.0 pg 05/01/2019 3:58 AM [facility] MCHC 29.8(L) 30.8 - 35.9 gm/dL 05/01/2019 3:58 AM [facility] Platelet Count 148(L) 153 - 416 x10E9/L 05/01/2019 3:58 AM [facility] RDW-CV 15.9(H) 12.1 - 14.9 % 05/01/2019 3:58 AM [facility] MPV 13.7(H) 9.4 - 12.9 fl 05/01/2019 3:58 AM [facility] Neutrophils % 62.7 44.0 - 73.0 % 05/01/2019 3:58 AM [facility] Lymphocytes % 11.7(L) 20.0 - 43.0 % 05/01/2019 3:58 AM [facility] Monocytes % 11.7 5.0 - 13.0 % 05/01/2019 3:58 AM [facility] Eosinophils % 12.8(H) 0.0 - 6.0 % 05/01/2019 3:58 AM [facility] Basophils % 0.8 0.0 - 2.0 % 05/01/2019 3:58 AM [facility] Immature Granulocytes 0.3 0 - 1 % 05/01/2019 3:58 AM [facility] Neutrophil Absolute 4.53 2.01 - 7.14 x10E9/L 05/01/2019 3:58 AM [facility] Lymphocytes Absolute 0.84(L) 1.07 - 3.94 x10E9/L 05/01/2019 3:58 AM [facility] Monocytes Absolute 0.84 0.26 - 1.07 x10E9/L 05/01/2019 3:58 AM [facility] Eosinophils Absolute 0.92(H) 0 - 0.47 x10E9/L 05/01/2019 3:58 AM [facility] Basophils Absolute 0.06 0 - 0.08 x10E9/L 05/01/2019 3:58 AM [facility] Immature Granulocytes Absolute 0.02 0.00 - 0.06 x10E9/L 05/01/2019 3:58 AM [facility] nRBC Auto 0 /100 WBC 05/01/2019 3:58 AM [facility] Blood BLOOD SPECIMEN / Unknown Lab Venipuncture / Unknown 05/01/2019 2:44 AM CAREER REPRESENTATIVE 05/01/2019 3:34 AM [facility] Kev Ordonez MD LAB - HEMATOLOGY ORD ERABLES Performing Organization Address [facility] Co de Phone Number [facility] [address] [phone] * PT-INR (04/30/2019 2:42 AM [facility]) Pathologist [facility] PT 13.9 12.1 - 14.8 sec 04/30/2019 3:40 AM [facility] INR 1.1 0.9 - 1.1 04/30/2019 3:40 AM [facility] Blood BLOOD SPECIMEN / Unknown Lab Venipuncture / Unknown 04/30/2019 2:42 AM CAREER REPRESENTATIVE 04/30/2019 3:13 AM [facility] Narrative [facility] - 04/30/2019 3:40 AM [facility] Conventional Warfarin Anticoagulant Therapy: INR Reference Range: ??2.0-3.0 Intensive Warfarin Anticoagulant Therapy: INR Reference Range: ? 2.5-3.5 Yasmany Oh MD LAB - COAGULATION OR DERABLES Performing Organization Address [facility] Co de Phone Number [facility] [address] [place] [phone] * (ABNORMAL) COMPREHENSIVE METABOLIC PANEL (04/30/2019 2:42 AM [facility]) [facility] Glucose 101 70 - 105 mg/dL 04/30/2019 3:47 AM [facility] Sodium 138 136 - 145 mmol/L 04/30/2019 3:47 AM [facility] Potassium 3.4(L) 3.5 - 4.7 mmol/L 04/30/2019 3:47 AM [facility] Chloride 105 98 - 107 mmol/L 04/30/2019 3:47 AM [facility] CO2 26 23 - 31 mmol/L 04/30/2019 3:47 AM [facility] Calcium 9.5 8.4 - 10.4 mg/dL 04/30/2019 3:47 AM [facility] Anion Gap 7(L) 8 - 16 mmol/L 04/30/2019 3:47 AM [facility] BUN 24 8.4 - 25.7 mg/dL 04/30/2019 3:47 AM [facility] Creatinine 1.00 0.72 - 1.25 mg/dL 04/30/2019 3:47 AM CAREER REPRESENTATIVE [facility] Alkaline Phosphatase 188(H) 40 - 150 U/L 04/30/2019 3:47 AM CAREER REPRESENTATIVE [facility] ALT 27 0 - 61 U/L 04/30/2019 3:47 AM CAREER REPRESENTATIVE [facility] AST 30 5 - 34 U/L 04/30/2019 3:47 AM CAREER REPRESENTATIVE [facility] Protein Total 6.9 6.4 - 8.3 gm/dL 04/30/2019 3:47 AM CAREER REPRESENTATIVE [facility] Albumin 3.5 3.2 - 4.6 gm/dL 04/30/2019 3:47 AM [facility] Bilirubin Total 0.5 0.2 - 1.2 mg/dL 04/30/2019 3:47 AM CAREER REPRESENTATIVE [facility] eGFR by MDRD >60 mL/min/1.7 3m2 04/30/2019 3:47 AM CAREER REPRESENTATIVE [facility] eGFR by MDRD >60 mL/min/1.7 3m2 04/30/2019 3:47 AM [facility] Blood BLOOD SPECIMEN / Unknown Lab Capillary / Unknown 04/30/2019 2:42 AM CAREER REPRESENTATIVE 04/30/2019 3:13 AM CAREER REPRESENTATIVE Yasmany Oh MD LAB - CHEMISTRY [facility] Organization Address City/State/ZIP Co de Phone Number [facility] [address] [place] [address] * (ABNORMAL) CBC W AUTO DIFFERENTIAL (04/30/2019 2:42 AM CAREER REPRESENTATIVE) [facility] WBC 7.9 4.4 - 10.7 x10E9/L 04/30/2019 3:24 AM CAREER REPRESENTATIVE [facility] WBC Corrected 04/30/2019 3:24 AM [facility] RBC 4.01 3.80 - 5.40 x10E12/L 04/30/2019 3:24 AM [facility] Hemoglobin 10.5(L) 12.0 - 17.6 gm/dL 04/30/2019 3:24 AM [facility] Hematocrit 35.3 35.2 - 51.7 % 04/30/2019 3:24 AM CAREER REPRESENTATIVE [facility] MCV 88.0 80.7 - 98.3 fl 04/30/2019 3:24 AM [facility] MCH 26.2(L) 26.7 - 34.0 pg 04/30/2019 3:24 AM [facility] MCHC 29.7(L) 30.8 - 35.9 gm/dL 04/30/2019 3:24 AM [facility] Platelet Count 159 153 - 416 x10E9/L 04/30/2019 3:24 AM [facility] RDW-CV 15.9(H) 12.1 - 14.9 % 04/30/2019 3:24 AM [facility] MPV 12.9 9.4 - 12.9 fl 04/30/2019 3:24 AM [facility] Neutrophils % 64.6 44.0 - 73.0 % 04/30/2019 3:24 AM [facility] Lymphocytes % 10.3(L) 20.0 - 43.0 % 04/30/2019 3:24 AM [facility] Monocytes % 10.2 5.0 - 13.0 % 04/30/2019 3:24 AM [facility] Eosinophils % 14.0(H) 0.0 - 6.0 % 04/30/2019 3:24 AM [facility] Basophils % 0.6 0.0 - 2.0 % 04/30/2019 3:24 AM [facility] Immature Granulocytes 0.3 0 - 1 % 04/30/2019 3:24 AM [facility] Neutrophil Absolute 5.09 2.01 - 7.14 x10E9/L 04/30/2019 3:24 AM [facility] Lymphocytes Absolute 0.81(L) 1.07 - 3.94 x10E9/L 04/30/2019 3:24 AM [facility] Monocytes Absolute 0.80 0.26 - 1.07 x10E9/L 04/30/2019 3:24 AM [facility] Eosinophils Absolute 1.10(H) 0 - 0.47 x10E9/L 04/30/2019 3:24 AM [facility] Basophils Absolute 0.05 0 - 0.08 x10E9/L 04/30/2019 3:24 AM [facility] Immature Granulocytes Absolute 0.02 0.00 - 0.06 x10E9/L 04/30/2019 3:24 AM CAREER REPRESENTATIVE [facility] nRBC Auto 0 /100 WBC 04/30/2019 3:24 AM CAREER REPRESENTATIVE [facility] Blood BLOOD SPECIMEN / Unknown Lab Venipuncture / Unknown 04/30/2019 2:42 AM CAREER REPRESENTATIVE 04/30/2019 3:13 AM CAREER REPRESENTATIVE Yasmany Oh MD LAB - HEMATOLOGY ORD ERABLES [facility] [address] [place] [address] * CULTURE ABSCESS+GRAM STAIN (04/29/2019 9:41 PM CAREER REPRESENTATIVE) Culture No growth UMESH 05/03/2019 8:32 AM CAREER REPRESENTATIVE [facility] Gram Stain Rare Polymorphonuclear cells 05/03/2019 8:32 AM CAREER REPRESENTATIVE [facility] Gram Stain No organisms seen 019 8:32 AM [facility] Microbiology ENTIRE HIP REGION / Unknown Collection / Unknown 04/29/2019 9:41 PM CAREER REPRESENTATIVE 04/29/2019 11:20 PM CAREER REPRESENTATIVE Armida Gomez MD LAB - MICROBIOLOGY O RDERABLES [facility] [address] [place] [address], [facility] [phone] * (ABNORMAL) CULTURE VRE (04/29/2019 9:41 PM CAREER REPRESENTATIVE) Culture Growth of Enterococcus species vancomycin-resis tant (VRE)(A) UMESH 05/01/2019 6:09 AM [facility] Microbiology ENTIRE RECTUM / Unknown Collection / Unknown 04/29/2019 9:41 PM CAREER REPRESENTATIVE 04/29/2019 11:20 PM CAREER REPRESENTATIVE Narrative [facility] - 05/01/2019 6:09 AM CAREER REPRESENTATIVE For vancomycin-resistant enterococci (VRE), contact precautions are required. For any questions, call Infection Prevention. Yasmany Oh MD LAB - MICROBIOLOGY O RDERABLES [facility] [address] [place] [address], [facility] [phone] * CULTURE MRSA (04/29/2019 9:41 PM CAREER REPRESENTATIVE) Culture Negative for methicillin-resist ant Staphylococcus aureus (MRSA) UMESH 05/01/2019 5:24 AM CAREER REPRESENTATIVE [facility] Microbiology ENTIRE RECTUM / Unknown Collection / Unknown 04/29/2019 9:41 PM CAREER REPRESENTATIVE 04/29/2019 11:20 PM CAREER REPRESENTATIVE Yasmany Oh MD LAB - MICROBIOLOGY O RIO Performing Organization Address City/[facility]/ZIP Co de Phone Number [facility] [address] [place] [address], [facility] [phone] * CULTURE BLOOD (04/29/2019 7:09 PM CAREER REPRESENTATIVE) Culture No growth day 5 UMESH 05/04/2019 10:00 PM CAREER REPRESENTATIVE [facility] Blood PERIPHERAL BLOOD / Unknown Lab Venipuncture / Unknown 04/29/2019 7:09 PM CAREER REPRESENTATIVE 04/29/2019 7:18 PM CAREER REPRESENTATIVE Armida Gomez MD LAB - MICROBIOLOGY O RIO Performing Organization Address [facility] Co de Phone Number [facility] [address] [place] [address], [facility] [phone] * CULTURE BLOOD (04/29/2019 7:09 PM CAREER REPRESENTATIVE) Culture No growth day 5 UMESH 05/04/2019 10:00 PM CAREER REPRESENTATIVE [facility] Blood PERIPHERAL BLOOD / Unknown Lab Venipuncture / Unknown 04/29/2019 7:09 PM CAREER REPRESENTATIVE 04/29/2019 7:18 PM CAREER REPRESENTATIVE Armida Gomez MD LAB - MICROBIOLOGY O RIO Performing Organization Address [facility]/ZIP Co de Phone Number [facility] [address] [place] [address], [facility] [phone] * (ABNORMAL) CULTURE MRSA (04/29/2019 5:56 PM CAREER REPRESENTATIVE) Culture Growth of Staphylococcus aureus methicillin-resist ant (MRSA)(A) UMESH 05/01/2019 5:19 AM CAREER REPRESENTATIVE [facility] Microbiology SPECIMEN FROM NASAL FOSSAE / Unknown Collection / Unknown 04/29/2019 5:56 PM CAREER REPRESENTATIVE 04/29/2019 5:56 PM CAREER REPRESENTATIVE Narrative [facility] - 05/01/2019 5:19 AM CAREER REPRESENTATIVE Methicillin-resistant Staphylococci (MRSA) are resistant to all currently available beta-lactam antibiotics with the exception of the newer cephalosporins with anti-MRSA activity. Contact precautions required. Yasmany Oh MD LAB - MICROBIOLOGY O RDERABLES [facility] [address] [place] [address], [facility] [phone] * XR HIP RIGHT 2VW OR MORE (04/29/2019 12:18 PM CAREER REPRESENTATIVE) Anatomical Region Laterality Modality Pelvis, Lower Extremity Radiogra phic Imaging 04/29/2019 12:3 8 PM CAREER REPRESENTATIVE Impressions 04/29/2019 12:57 PM CAREER REPRESENTATIVE Satisfactory postop appearance. Edited by Alaina Alvarado on 04/29/2019 12:44 PM Reading Radiologist: Ash Bill MD on 04/29/2019 at 12:57 PM Narrative 04/29/2019 12:57 PM CAREER REPRESENTATIVE RIGHT HIP. HISTORY: Pain. Views of the [...] METABOLIC PANEL (CALCIUM TOTAL) (04/29/2019 6:44 AM CAREER REPRESENTATIVE) Glucose 102 70 - 105 mg/dL 04/29/2019 7:10 AM [facility] Sodium 140 136 - 145 mmol/L 04/29/2019 7:10 AM [facility] Potassium 3.6 3.5 - 4.7 mmol/L 04/29/2019 7:10 AM [facility] Chloride 107 98 - 107 mmol/L 04/29/2019 7:10 AM [facility] CO2 23 23 - 31 mmol/L 04/29/2019 7:10 AM [facility] Calcium 9.3 8.4 - 10.4 mg/dL 04/29/2019 7:10 AM [facility] Anion Gap 10 8 - 16 mmol/L 04/29/2019 7:10 AM [facility] BUN 30(H) 8.4 - 25.7 mg/dL 04/29/2019 7:10 AM [facility] Creatinine 1.14 0.72 - 1.25 mg/dL 04/29/2019 7:10 AM [facility] eGFR by MDRD >60 mL/min/1.7 3m2 04/29/2019 7:10 AM [facility] eGFR by MDRD >60 mL/min/1.7 3m2 04/29/2019 7:10 AM [facility] Blood BLOOD SPECIMEN / Unknown Lab Venipuncture / Unknown 04/29/2019 6:44 AM CAREER REPRESENTATIVE 04/29/2019 6:51 AM CAREER REPRESENTATIVE Yasmany Oh MD LAB - CHEMISTRY ROYCE KLINE [facility] [address] [place] [phone] * VANCOMYCIN LEVEL RANDOM (04/29/2019 6:44 AM [facility]) Vancomycin Random 10.5 ug/mL 04/29/2019 7:10 AM [facility] Blood BLOOD SPECIMEN / Unknown Lab Venipuncture / Unknown 04/29/2019 6:44 AM CAREER REPRESENTATIVE 04/29/2019 6:51 AM CAREER REPRESENTATIVE Narrative [facility] - 04/29/2019 7:10 AM CAREER REPRESENTATIVE No reference range available for random Vancomycin levels. All results interpreted by ordering physician. 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 $ Given 05/05/2019 9:21 PM CAREER REPRESENTATIVE 3 mL $ Given 05/05/2019 1:20 PM CAREER REPRESENTATIVE 3 mL $ Given 05/05/2019 6:20 AM CAREER REPRESENTATIVE 3 mL acetaminophen (TYLENOL) tablet 650 mg 650 mg, Oral, EVERY 6 HOURS PRN, Mild Pain, Starting on Tue04/29/19 at 0545, Until Tue05/06/19 at 1523 $ Given 05/05/2019 9:18 PM CAREER REPRESENTATIVE 650 mg $ Given 05/04/2019 9:14 AM CAREER REPRESENTATIVE 650 mg $ Given 04/29/2019 4:40 PM CAREER REPRESENTATIVE 650 mg albuterol (PROVENTIL;VENTOLIN) (5 MG/ML) 0.5% nebulizer solution 2.5 mg 2.5 mg, Inhalation, 4 TIMES DAILY, First dose on Tue04/29/19 at 0900, Until Discontinued, Dilute prior to administration via nebulization. $ Given 05/06/2019 9:27 AM CAREER REPRESENTATIVE 2.5 mg $ Given 05/06/2019 1:27 AM CAREER REPRESENTATIVE 2.5 mg $ Given 05/05/2019 7:23 PM CAREER REPRESENTATIVE 2.5 mg orztwmdb-fdlmpcrgt-tnulnxtyymp (MAALOX;MYLANTA) suspension 15 mL 15 mL, Oral, EVERY 6 HOURS PRN, Heartburn, Starting on Tue05/04/19 at 1553, Until 05/06/19 at 1523, Shake well before using. $ Given 05/05/2019 9:33 PM CAREER REPRESENTATIVE 15 mL $ Given 05/04/2019 9:14 PM CAREER REPRESENTATIVE 15 mL $ Given 05/04/2019 6:16 PM CAREER REPRESENTATIVE 15 mL apixaban (ELIQUIS) tablet 5 mg 5 mg, Oral, 2 TIMES DAILY, First dose on Tue05/02/19 at 2100, Until Discontinued $ Given 05/06/2019 9:08 AM CAREER REPRESENTATIVE 5 mg $ Given 05/05/2019 9:19 PM CAREER REPRESENTATIVE 5 mg $ Given 05/05/2019 9:08 AM CAREER REPRESENTATIVE 5 mg budesonide-formoterol (SYMBICORT) 160-4.5 MCG/ACT inhaler 2 puff 2 puff, Inhalation, 2 TIMES DAILY, First dose on Tue04/29/19 at 0900, Until Discontinued, Rinse mouth after usage . WASTE DISPOSAL INSTRUCTION: Send to Pharmacy for Disposal. . $ Given 05/06/2019 9:39 AM CAREER REPRESENTATIVE 2 puffs $ Given 05/05/2019 7:25 PM CAREER REPRESENTATIVE 2 puffs $ Given 05/05/2019 7:52 AM CAREER REPRESENTATIVE 2 puffs bumetanide (BUMEX) tablet 0.5 mg 0.5 mg, Oral, 2 TIMES DAILY, First dose on Tue05/01/19 at 1100, Until Discontinued $ Given 05/06/2019 9:08 AM CAREER REPRESENTATIVE 0.5 mg $ Given 05/05/2019 4:37 PM CAREER REPRESENTATIVE 0.5 mg $ Given 05/05/2019 9:08 AM CAREER REPRESENTATIVE 0.5 mg diphenhydrAMINE (BENADRYL) capsule 25 mg 25 mg, Oral, EVERY 6 HOURS PRN, Itching, Starting on 04/29/19 at 0756, Until 05/06/19 at 1523 $ Given 05/06/2019 12:33 PM CAREER REPRESENTATIVE 25 mg $ Given 05/05/2019 9:19 PM CAREER REPRESENTATIVE 25 mg $ Given 05/05/2019 9:14 AM CAREER REPRESENTATIVE 25 mg diphenhydrAMINE-zinc acetate (BENADRYL EXTRA STRENGTH) 2-0.1 % cream Topical, PRN, Itching, Starting on Tue05/01/19 at 1305, Until 05/06/19 at 1523, Apply to bilateral periorbital areas $ Given 05/02/2019 11:35 AM CAREER REPRESENTATIVE $ Given 05/01/2019 9:44 PM CAREER REPRESENTATIVE $ Given 05/01/2019 4:53 PM CAREER REPRESENTATIVE docusate sodium (COLACE) capsule 100 mg 100 mg, Oral, DAILY, First dose on Tue05/03/19 at 1300, Until Discontinued $ Given 05/06/2019 9:09 AM CAREER REPRESENTATIVE 100 mg $ Given 05/05/2019 9:09 AM CAREER REPRESENTATIVE 100 mg $ Given 05/04/2019 9:14 AM CAREER REPRESENTATIVE 100 mg doxycycline monohydrate capsule 100 mg 100 mg, Oral, EVERY 12 HOURS, First dose on 05/06/19 at 0945, Until Discontinued, Indication for anti-infective therapy: Suspected infection, Site of anti-infective therapy: Skin/soft tissue $ Given 05/06/2019 9:56 AM CAREER REPRESENTATIVE 100 mg fentaNYL (PF) (SUBLIMAZE) injection 25 mcg 25 mcg, Intravenous, EVERY 4 HOURS PRN, Severe Pain, Starting on 04/29/19 at 0546, Until 05/06/19 at 1523 $ Given 05/03/2019 5:18 AM CAREER REPRESENTATIVE 25 mcg $ Given 05/03/2019 2:03 AM CAREER REPRESENTATIVE 25 mcg $ Given 05/02/2019 10:05 PM CAREER REPRESENTATIVE 25 mcg hydrocortisone (DERMAREST) 1 % lotion Topical, 4 TIMES DAILY PRN, Itching, swelling, Starting on Tue05/02/19 at 0000, Until 05/06/19 at 1523, Apply to bilateral eyelids/periorbital areas. $ Given 05/02/2019 10:05 PM CAREER REPRESENTATIVE metoprolol succinate XL 24hr (TOPROL XL) tablet 50 mg 50 mg, Oral, DAILY, First dose on 04/29/19 at 1730, Until Discontinued, May cut in half but do not crush or chew $ Given 05/06/2019 9:08 AM CAREER REPRESENTATIVE 50 mg $ Given 05/05/2019 9:09 AM CAREER REPRESENTATIVE 50 mg $ Given 05/04/2019 9:13 AM CAREER REPRESENTATIVE 50 mg NaCl 0.9 % 1,000 mL with povidone-iodine (BETADINE) 35 mL irrigation PRN, Starting on Tue05/02/19 at 1435, Until Tue05/02/19 at 1519, Intra-op $ Given 05/02/2019 2:35 PM CAREER REPRESENTATIVE 1,035 mL Operative Site oxyCODONE (immediate release) (ROXICODONE) tablet 10 mg 10 mg, Oral, EVERY 4 HOURS PRN, Moderate Pain, Starting on Kellen 05/03/19 at 1221, Until 05/06/19 at 1523, Moderate pain uncontrolled by tramadol $ Given 05/05/2019 7:27 AM CAREER REPRESENTATIVE 10 mg $ Given 05/03/2019 7:00 PM CAREER REPRESENTATIVE 10 mg $ Given 05/03/2019 12:40 PM CAREER REPRESENTATIVE 10 mg potassium chloride ER (KLOR-CON M) tablet 40 mEq 40 mEq, Oral, 2 TIMES DAILY WITH MEALS, 2 doses, First dose on 05/06/19 at 0845, Last dose on 05/06/19 at 1800, Do not crush or chew. $ Given 05/06/2019 9:14 AM CAREER REPRESENTATIVE 40 mEq tamsulosin (FLOMAX) capsule 0.4 mg 0.4 mg, Oral, AT BEDTIME, First dose on 04/29/19 at 2100, Until Discontinued, At the same time every day after a meal. Do not crush, chew $ Given 05/05/2019 9:19 PM CAREER REPRESENTATIVE 0.4 mg $ Given 05/04/2019 9:13 PM CAREER REPRESENTATIVE 0.4 mg $ Given 05/03/2019 10:02 PM CAREER REPRESENTATIVE 0.4 mg tiotropium (SPIRIVA RESPIMAT) 2.5 MCG/ACT inhaler 2 puff 2 puff, Inhalation, DAILY, First dose on 04/29/19 at 0900, Until Discontinued $ Given 05/06/2019 9:39 AM CAREER REPRESENTATIVE 2 puffs $ Given 05/05/2019 7:52 AM CAREER REPRESENTATIVE 2 puffs $ Given 05/04/2019 7:55 AM CAREER REPRESENTATIVE 2 puffs traMADol (ULTRAM) tablet 50 mg 50 mg, Oral, EVERY 6 HOURS PRN, Moderate Pain, Starting on 04/29/19 at 0546, Until 05/06/19 at 1523 $ Given 05/06/2019 9:09 AM CAREER REPRESENTATIVE 50 mg $ Given 05/05/2019 7:30 AM CAREER REPRESENTATIVE 50 mg $ Given 05/04/2019 9:13 PM CAREER REPRESENTATIVE 50 mg vancomycin (VANCOCIN) 2 g in NaCl 0.9 % 6,000 mL irrigation PRN, Starting on Tue05/02/19 at 1435, Until Tue05/02/19 at 1519, Intra-op $ Given 05/02/2019 2:35 PM CAREER REPRESENTATIVE 5,500 mL Operative Site vancomycin (VANCOCIN) injection PRN, Starting on Tue05/02/19 at 1435, Until Tue05/02/19 at 1519, Intra-op $ Given 05/02/2019 2:35 PM CAREER REPRESENTATIVE 1,000 mg Operative Site documented in this encounter Active and Recently Administered Medications Times are shown in CAREER REPRESENTATIVE. Scheduled Medication Order 05/04/2019 05/05/2019 05/06/2019 0.9% [...] 0312 ($ Given - Provider: Cee Boyce NIGHT SUPERVISOR)0750 ($ Given - Provider: Guadalupe Her NIGHT SUPERVISOR)1441 ($ Given - Provider: Guadalupe Her NIGHT SUPERVISOR)2113 ($ Given - Provider: Genevieve Crowder [facility]) 0138 ($ Given - Provider: Mily Simental [facility])0752 ($ Given - Provider: Cleo Cota NIGHT SUPERVISOR)1351 ($ Given - Provider: Cleo Cota NIGHT SUPERVISOR)1923 ($ Given - Provider: Yoko Hale [facility]) 0127 ($ Given - Provider: Yoko Hale NIGHT SUPERVISOR)0927 ($ Given - Provider: Tracy Goldsmith [facility])1400 (Due) apixaban (ELIQUIS) tablet 5 mg 5 [...] RCP)2113 ($ Given - Provider: Genevieve Crowder NIGHT SUPERVISOR) 0752 ($ Given - Provider: Cleo Cota NIGHT SUPERVISOR)1925 ($ Given - Provider: Yoko Hale NIGHT SUPERVISOR) 0939 ($ Given - Provider: Tracy Goldsmith NIGHT SUPERVISOR) bumetanide (BUMEX) tablet 0.5 mg 0.5 mg, [...] ($ Given - Provider: Kristen Guadarrama RN) sujorvpt-mvczubxzn-whox thicone (MAALOX;MYLANTA) suspension 15 mL 15 mL, [...] documented as of this encounter Care Teams Dry Wall Applicator Relationship Specialty Start Date End Date Briana Medeiros MD [address] [place], [place] [id number] PCP - General 02/15/18 02/22/22 documented as of this encounter
--- OUTSIDE RECORDS SUMMARY | 2024-05-25 03:03 | XMS_ITS | Encounter Summary ---
Author Organization [facility] Address [address] [facility] [place] [address] Care Team Providers Care Parachute Packer Name Role Phone Briana Medeiros MD Primary Care Provider [phone] Encounter Details Date Type Department Care Team (Late st Contact Info) Description 02/27/2019 Orders Only [facility] - Orthopedics [address] [facility], [facility] [place] [phone] Larry Alexander MD [address] [place] [address] Arthralgia of hip, unspecified laterality Social History [...] st Contact Info) Description 07/09/2024 12:30 PM DOGGY DAYCARE ACTIVITIES DIRECTOR Office Visit [facility] - GI [address] [facility], [place] [address] Twin Miller MD [facility]5 [facility] 2L DIV [place] [address] 09/19/2024 2:00 PM CDT Office Visit [facility] - Orthopedic Surgery [address] [place] [phone] Larry Alexander MD [address] [place] [address] documented as of this encounter Goals Goal [...] Region Laterality Modality Pelvis, Lower Extremity Radiogra [facility] 02/27/2019 10:1 7 AM CDT Impressions [...] and right hip radiographs dated 02/02/[address] [facility] Right hip dated 02/02/2019 from [place]. Findings: Right hip: Total hip arthroplasty [...] [facility]vis [facility] [facility] Right hip dated 02/02/2019 from [place] Findings: Right hip: Total hip arthroplasty [...] and right hip radiographs dated 02/02/[address] [facility] Right hip dated 02/02/2019 from [place] Findings: Right hip: Total hip arthroplasty [...] Pelvis and right [facility] [facility] Right hip dated 02/02/2019 from [place]. Findings: Right hip: Total hip arthroplasty [...] documented as of this encounter Care Teams Parachute Packer Relationship Specialty Start Date End Date Briana Medeiros MD [address] [place] [address] PCP - General 02/15/18 02/22/22 documented as of this encounter
--- OUTSIDE RECORDS SUMMARY | 2024-05-25 03:04 | XMS_ITS | Encounter Summary ---
Author Organization [facility] Address [address] [facility] [place] [address] Care Team Providers Care Director Metabolism Name Role Phone Briana Medeiros MD Primary Care Provider [phone] Reason for Referral * Radiology Services (Routine) - Closed Specialty Diagnoses / Procedures Referred By Contac t Referred To Contact Ultrasound Diagnoses Liver cirrhosis secondary to RAYGOZA (HCC) Procedures US ABDOMEN LIMITED Aldo Vásquez MD [address] [place] [address] [facility] [address] [place] [address] Referral ID Status Reason Start Date Expiration Date Visits Re quested Visits Authorized [id number] Closed 08/17/2018 02/13/2019 1 1 Reason for Visit * Radiology Services (Routine) - Closed Specialty Diagnoses / Procedures Referred By Contac t Referred To Contact Ultrasound Diagnoses Liver cirrhosis secondary to RAYGOZA (HCC) Procedures US ABDOMEN LIMITED Aldo Vásquez MD [address] [place] [address] [facility] [address] [place] [address] Referral ID Status Reason Start Date Expiration Date Visits Re quested Visits Authorized [id number] Closed 08/17/2018 02/13/2019 1 1 Encounter Details Date Type Department Care Team (Latest Contact Info) Description 11/06/2018 9:56 AM CDT - 11/06/2018 11:59 PM CDT Hospital Encounter [facility] [address] [place] [address] Aldo Vásquez MD [address] [place] [address] Discharge Disposition: Home or Self Care Social [...] once daily 3 02/01/2018 02/02/2019 nystatin (MYCOSTATIN) 999861 UNIT/GM powderIndications:Oth er cirrhosis of liver (HCC) [...] once daily 02/15/2019 vitamin D, ergocalciferol, (DRISDOL) 26832 UNITS capsuleIndications:Ot her cirrhosis of liver (HCC) Take 50,000 Units by mouth every 7 days 0 02/02/2018 03/21/2023 zinc sulfate (ZINCATE) 50 MG capsule Take 220 mg by mouth once daily 02/15/2019 documented as of this encounter Plan of Treatment Upcoming Encounters Date Type Department Care Team (Late st Contact Info) Description 07/09/2024 12:30 PM CHECK PROCESSOR Office Visit [facility] - GI [address] [place] [address], [place] [phone] Twin Miller MD [address] [place] [address] [place] [address] 09/19/2024 2:00 PM CDT Office Visit [facility] - [facility]opedic [facility] [place] [phone] Vandana Alexander MD [facility]1 [facility] [address] [place] [address] documented as of this encounter Procedures Procedure [...] as of this encounter Care Teams Director Metabolism Relationship Specialty Start Date End Date Briana Medeiros MD [address] [place] [address] PCP - General 02/15/18 02/22/22 documented as of this encounter
--- OUTSIDE RECORDS SUMMARY | 2024-05-25 03:04 | XMS_ITS | Encounter Summary ---
Author Organization [facility] Address [address] [facility] [place] [address] Care Team Providers Care Automation Tester Name Role Phone Briana Medeiros MD Primary Care Provider [phone] Reason for Visit * Reason Comments Follow-up Encounter Details Date Type Department Care Team (Late st Contact Info) Description 05/16/2018 Telephone [facility] [address] [place] [address] Cleo Tompkins RN Follow-up Social [...] lab orders beplaced for [facility]. Order placed. SURE WASHER documented in this encounter Plan of Treatment Upcoming Encounters Date Type Department Care Team (Late st Contact Info) Description 07/09/2024 12:30 PM PRESSURE WASHER Office Visit [facility] - GI [address] [place] [address], [place] [address] Twin Miller MD [address] [place] [address] [place] [address] 09/19/2024 2:00 PM CDT Office Visit [facility] - Orthopedic Surgery [address] [place] [address] Larry Alexander MD [address] [facility] [address] [place] [address] documented as of this encounter Visit Diagnoses Not on filedocumented in this encounter Additional Health Concerns Infection Onset Date Last Indicated Resolved Time MRSA 09/12/2017 04/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 Care Teams Automation Tester Relationship Specialty Start Date End Date Briana Medeiros MD [address] [place] [address] PCP - General 02/15/18 02/22/22 documented as of this encounter
--- OUTSIDE RECORDS SUMMARY | 2024-05-25 03:04 | XMS_ITS | Encounter Summary ---
Author Organization [facility] Address [address] [facility] [place] [address] Care Team Providers Care Regional Climate Change Analyst Name Role Phone Briana Medeiros MD Primary Care Provider [phone] Encounter Details Date Type Department Care Team (Late st Contact Info) Description 08/18/2018 Orders Only [facility] [address] [place] [address] Aldo Vásquez MD [address] [place] [address] Liver cirrhosis secondary to RAYGOZA (HCC) Social [...] Contact Info) Description 07/09/2024 12:30 PM DATA MANAGEMENT Office Visit [facility] - GI [address] [facility], [place] [address] Twin Miller MD [facility]5 [facility] 2L [place] [address] 09/19/2024 2:00 PM CDT Office Visit [facility] - Orthopedic Surgery [address] [place] [address] Larry Alexander MD [address] [facility] [address] [place] [address] documented as of this encounter Visit Diagnoses Diagnosis Liver cirrhosis secondary to RAYGOZA (HCC) Other chronic nonalcoholic liver disease documented in this encounter Additional Health Concerns Infection Onset Date Last Indicated Resolved Time MRSA 09/12/2017 04/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 Care Teams Regional Climate Change Analyst Relationship Specialty Start Date End Date Briana Medeiros MD [address] [place] [address] PCP - General 02/15/18 02/22/22 documented as of this encounter
--- OUTSIDE RECORDS SUMMARY | 2024-05-25 03:04 | XMS_ITS | Encounter Summary ---
Author Organization [facility] Address [address] [facility] [place] [address] Care Team Providers Care Traffic Division Commanding Officer Name Role Phone Briana Medeiros MD Primary Care Provider [phone] Reason for Referral * Radiology Services (Routine) - Closed Specialty Diagnoses / Procedures Referred By Contac t Referred To Contact Ultrasound Diagnoses Other cirrhosis of liver (HCC) Procedures US ABDOMEN LIMITED Aldo Vásquez MD [address] [place] [address] [address] Referral ID Status Reason Start Date Expiration Date Visits Re quested Visits Authorized [id number] Closed 02/15/2018 08/14/2018 1 1 Reason for Visit * Reason Comments Cirrhosis Encounter Details Date Type Department Care Team (Late st Contact Info) Description 02/15/2018 1:20 PM CDT Office Visit [facility] GI [address] [place] [address] Aldo Vásquez MD [address] [place] [address] Other cirrhosis of liver (HCC) [...] issues He had a PEG tube in [facility], EGD looked normal with no varices. Since [...] daily 5 ??? vitamin D, ergocalciferol, (DRISDOL) 04608 UNITS capsule Take 50,000 Units by mouth every 7 days 0 ??? vitamin B-12 (CYANOCOBALAMIN) 500 MCG tablet Take 500 mcg by mouth once daily ??? metoprolol tartrate (LOPRESSOR) 25 MG tablet Take 0.5 tablets by mouth 2 times daily 3 ??? nystatin (MYCOSTATIN) 175062 UNIT/GM powder APPLY TO AFFECTED AREA TWICE [...] (L) SPECKLED PATTERN ([facility]) 1:80 Note Comment Elrep-3-[id number], Serum 90 - 200 mg/dL 223 (H) [...] st Contact Info) Description 07/09/2024 12:30 PM COMBER OPERATOR Office Visit [facility] [place] [address] [place] [address], [place] [address] Twin Miller MD [address] [place] [address] [place] [address] 09/19/2024 2:00 PM CDT Office Visit [facility] - Orthopedic Surgery [address] [place] [address] [place] [address] [place] [address] 280 [place] [address] documented as of this encounter Procedures Procedure Name Priority Date/Time Associated Diagnosis Comments CARDIAC EKG ORDER 03/23/2018 4:0 0 PM CDT documented in this encounter Results * US ABDOMEN LIMITED (05/17/2018 9:58 AM COMBER OPERATOR) Anatomical Region Laterality Modality Abdomen Ultrasound 05/17/2018 9:52 AM COMBER OPERATOR Impressions 05/17/2018 11:07 AM COMBER OPERATOR IMPRESSION: 1. Hepatic cirrhosis without discrete hepatic lesion. 2. Patent hepatic vasculature. 3. No evidence of cholelithiasis or cholecystitis. Dictated by Natacha Garrett M.D. (Resident) I, Dr. VANDANA HENSLEY M.D. have personally reviewed and interpreted this examination/study. This report was electronically signed by VANDANA HENSLEY M.D. ??on 05/17/2018 11:07 AM . Narrative 05/17/2018 11:07 AM COMBER OPERATOR Exam: Abdominal ultrasound limited History: 67-year-old [...] documented as of this encounter Care Teams Traffic Division Commanding Officer Relationship Specialty Start Date End Date Briana Medeiros MD [address] [place], [place] [id number] PCP - General 02/15/18 02/22/22 documented as of this encounter
--- OUTSIDE RECORDS SUMMARY | 2024-05-25 03:04 | XMS_ITS | Encounter Summary ---
Author Organization [facility] Address [address] [facility] [place] [address] Care Team Providers Care Net Mvc Developer Name Role Phone Briana Medeiros MD Primary Care Provider [phone] Encounter Details Date Type Department Care Team ([facility] Contact Info) Description 10/10/2018 Orders Only [facility] GI [address] [place] [address] Aldo Vásquez MD [address] [place] [address] Social History Tobacco Use Types Packs/Day Years [...] st Contact Info) Description 07/09/2024 12:30 PM SHOP ESTIMATOR Office Visit [facility] - GI [address] [facility], [place] [address] Twin Miller MD [facility]5 [facility] 2L [place] [address] 09/19/2024 2:00 PM CDT Office Visit [facility] - Orthopedic Surgery [address] [facility] [place] [address] Larry Alexander MD [address] [facility] [address] [place] [address] documented as of this encounter Procedures Procedure [...] more information on this test, go to: http://education.First Coverage/faq/[email or web address] Test Performed at: [facility] [id number] [place] [address] ??[id number] ROSS LOPEZ DO,MPH 10/10/2018 3:15 PM CDT 10/10/2018 3:15 PM CDT Aldo Vásquez MD LAB - COAGULATION ORDERABLES [facility] [address] [place] [address] * (ABNORMAL) CBC WITH DIFFERENTIAL (10/10/2018 3:15 [...] 0.6 % [facility] Comment: Test Performed at: [facility] [address] ??[id number] ROSS LOPEZ DO,MPH 10/10/2018 3:15 PM CDT 10/10/2018 3:15 PM CDT Aldo Vásquez MD LAB - HEMATOLOGY ORDERABLES Performing Organization Address [facility] Co de Phone Number [facility] [phone] [place] [address] documented in this encounter Visit Diagnoses Not on filedocumented in this encounter Additional Health Concerns Infection Onset Date Last Indicated Resolved Time 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
--- OUTSIDE RECORDS SUMMARY | 2024-05-25 03:04 | XMS_ITS | Encounter Summary ---
Author Organization [facility] Address [address] [place] [address] Care Team Providers Care Food And Beverage Assistant Name Role Phone Briana Medeiros MD Primary Care Provider [phone] Reason for Visit * Auth/Cert Specialty Diagnoses / Procedures Referred By Contac t Referred To Contact Diagnoses Right hip infection Referral ID Status Reason Start Date Expiration Date Visits Re quested Visits Authorized [id number] 1 1 Encounter Details Date Type Department Care Team (Late st Contact Info) Description 02/08/2019 10:31 AM CDT - 02/08/2019 3:06 PM CDT Surgery [facility] PERIOPERATIVE [address] [place] [address] Larry Alexander MD [address] [address] REVISION HIP ARTHROPLASTY BOTH COMPONENT Surgery Details Date/Time Status Location OR Service Patient Class Case Class Case Type Trauma Case? 02/08/2019 10:31 AM Posted [facility] MAIN OR OR 03 Orthopedics Inpatient [...] Discharge date: 02/15/2019 Admitting Physician: Lilly Jurado APRN-HAMMERER TAB Attending Physician: Poncho Cisneros MD Discharge Physician: [...] -Continue Symbicort Condition at discharge: good Disposition: halfway facility Code Status At Discharge Full Code [...] 4 hours as needed vitamin D (ergocalciferol) 28962 units capsule Commonly known as: DRISDOL Take 50,000 Units by mouth every 7 days STOP taking these medications bumetanide 0.5 MG tablet Commonly known as: BUMEX ELIQUIS 5 MG tablet Generic drug: apixaban ferrous sulfate 325 (65 FE) MG tablet lidocaine 5 % patch Commonly known as: LIDODERM metoprolol succinate XL 24hr 50 MG tablet Commonly known as: TOPROL XL nystatin 697237 UNIT/GM powder Commonly known as: MYCOSTATIN Oxygen [...] 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 ??No scrubbing aroundincision. ? Danevang to be removed??at [address] Alexander ?? Call [phone] to schedule the first follow-up appointment with [...] Each 02/15/2019 04/01/2019 vitamin D, ergocalciferol, (DRISDOL) 27327 UNITS capsuleIndications:Ot her cirrhosis of liver (HCC) [...] and capped . Pt;s Ride him to [facility]. All the belonging handed over to patient. Called report to DONTAE Caballero. Gladis Pacheco RN 02/15/2019 8:05 PM * Mila Degroot MSW - 02/15/2019 3:52 PM CDT Facility Transfer Note Level of Care: Skilled Rehab Payor Source: Medicare Facility Name: (include name of person confirming admission): [facility]: [phone] () [phone] ([place]) [place] Made Aware of Special Needs (if applicable): N/A RN Call Report to: [phone], 100 meek RN RN Fax D/C Orders to: [phone] Transportation: Family Certificate of Medical Necessity rationale: not applicable Date/time of transfer: 02/15/19, TBD Accepting MD: Clay Completed and Signed NQ129H (if applicable): not applicable Family/Other Notified of Transfer (name/phone): Extended Emergency Contact Information Primary Emergency Contact: Trinity Keys Address: [address] [place] [address] [place] [address] [facility] Mobile Relation: Spouse Dot Etcher Apprentice needed? No Authorization Skilled Care: not applicable [...] the discharge summary. Yoko Montgomery OT x [phone] * Cheryl Mccoy, PharmD - 02/15/2019 2:38 [...] results for input(s): DDIMERMGL in the last 32679 hours. Warfarin Dose History Date INR Dose [...] hip arthroplasty infection Referring Physcian: Lilly Jurado APRN-HAMMERER TAB Name: José Miguel Keys Age: [age] year [...] results for input(s): CDIFFTOXINAB in the last 06271 hours. No results for input(s): SEDRATE in the last 39279 hours. Recent Labs Component Name 08/15/17 0348 08/09/17 0745 08/05/17 0445 CRP 4.1* 32.0* 14.4* No results for input(s): CK in the last 85098 hours. .No results for input(s): VANCOTROUGH, VANCOPEAK, VANCSERIES in the last 96490 hours. Invalid input(s): VANCORAND Recent Labs Component [...] sed rate, C-reactive protein Fax results to [phone] Please be advised that part of this text was done using voice recognition software. Errors may havebeen missed upon review. Raysa Nevarez MD * Mila Degroot MSW - 02/15/2019 12:14 PM CDT Social Work Progress Note Chart reviewed, this SW following today, work up and treatment is in progress, as per previous CM/SW notes, plan is: SNF. Pt would like to go to [facility]: [phone] (m) [phone]. SW made the referral and they are going to review for placement. SW will update once progress is made. 1551- Pt is accepted at [facility]: [phone] (f) [phone] and they can accept him today after he gets his IV vanc. Discharge Plan Disposition: SNF Transportation: Ambulance Anticipated Discharge Date: TBD Contacts: Extended Emergency Contact Information Primary Emergency Contact: Trinity Keys Address: [address] [place] [address] [place] [address] [facility] Mobile Relation: Spouse Dot Etcher Apprentice needed? No CHRIS Clifford 02/15/2019 12:14 PM [...] obtain a vancomycin level this evening 02/15 [id number]. Will continue to adjust and monitor. Nicole [...] results for input(s): MAGMGDL in the last 37631 hours. Recent Labs Component Name 09/19/17 0243 [...] whenever one becomes available. Poncho Cisneros MD [facility] Hospitalist 02/14/2019 7:02 PM * Neva [...] results for input(s): DDIMERMGL in the last 84380 hours. Warfarin Dose History Date INR Dose [...] hip arthroplasty infection Referring Physcian: Lilly Jurado APRN-HAMMERER TAB Name: José Miguel Keys Age: [age] year [...] results for input(s): CDIFFTOXINAB in the last 97437 hours. No results for input(s): SEDRATE in the last 22753 hours. Recent Labs Component Name 08/15/17 0348 08/09/17 0745 08/05/17 0445 CRP 4.1* 32.0* 14.4* No results for input(s): CK in the last 03004 hours. .No results for input(s): VANCOTROUGH, VANCOPEAK, VANCSERIES in the last 73735 hours. Invalid input(s): LAYNE Recent Labs Component [...] results for input(s): PREALBUMIN in the last 00226 hours. No data found. Skin/Wound: incision Last [...] hip arthroplasty infection Referring Physcian: Lilly Jurado APRN-HAMMERER TAB Name: José Miguel Keys Age: [age] year [...] results for input(s): CDIFFTOXINAB in the last 57924 hours. No results for input(s): SEDRATE in the last 24363 hours. Recent Labs Component Name 08/15/17 0348 08/09/17 0745 08/05/17 0445 CRP 4.1* 32.0* 14.4* No results for input(s): CK in the last 22885 hours. .No results for input(s): VANCOTROUGH, VANCOPEAK, VANCSERIES in the last 78658 hours. Invalid input(s): VANCORAND Recent Labs Component [...] MD - 02/14/2019 6:30 AM CDT [facility] Orthopedic Surgery Daily Progress Note José Miguel Keys, 68 year old, male : 1950 CSN: [id number] Primary Care Physician: Briana Medeiros MD - [...] fax results to clinic ( [facility], [phone] for [facility]) ?? Keep wound clean and dry. Daily [...] tub soaks. No scrubbing around incision. ?? Danevang to be removed at [address] Alexander ?? Call [phone] to schedule the first follow-up appointment with [...] results for input(s): MAGMGDL in the last 34966 hours. Recent Labs Component Name 09/19/17 0243 [...] DC to facility tomorrow Poncho Cisneros MD [facility] Hospitalist 02/13/2019 7:45 PM * Efrain Rojas RN - 02/13/2019 6:03 PM CDT Shift summary: patient up amb with walker, CHG bath done, appetite fair, PICC Line placed for IVABX, taught PICC line care, how to flush and fisher sponge hooking ivabx . Patient thinking about taking patient with home health. demonstrated how to flush and disconnect pt from iv pump. Call light and phone within reach. * Fay Otero, ASSEMBLER FILTERS - 02/13/2019 3:09 PM CDT Spoke with admission coordinator for [facility] who verified that the facility has a male bed available. Pt medical record faxed to [facility]. ASSEMBLER FILTERS will continue to follow and coordinate d/c. CHRIS Herrera 02/13/2019 3:12 PM [phone] * Christina Hamilton, PT - 02/13/2019 1:23 PM CDT Attempted to see pt for PT treatment. Unable to complete visit secondary to patient having PICC line placed. Will attempt another time. Christina Hamilton, PT [phone] * Fay Otero ASSEMBLER FILTERS - 02/13/2019 11:37 AM CDT Spoke with admission coordinator for [facility] facility does not have a male bed available. Message left for admission coordinator for [facility] re: bed availability. ASSEMBLER FILTERS will continue to follow and coordinate d/c. CHRIS Herrera 02/13/2019 11:43 AM [phone] * Zbigniew Sandoval RN - 02/13/2019 8:23 [...] results for input(s): DDIMERMGL in the last 21198 hours. Warfarin Dose History Date INR Dose [...] and redness of the region.He went to [facility] and workup there including CT of [...] postop day 7. MSK: DELICIA Bilbipin. Nl hardware sales assistant appreciated. No cce, no erythema of surgical [...] wishes, and discussion with multidisciplinary care team (manager military, ASSEMBLER FILTERS, CSN, Therapy services, Pharmacy, and boom tender) the current recommendation for the most appropriate discharge destination at this time is: Inpt rehab vs Home Anticipated discharge date: Possible discharge tomorrow 02/13. Needs PICC line and group home/insurance authorization Disposition: Due to medical issues in [...] and phone within reach. * Fay Otero ASSEMBLER FILTERS - 02/12/2019 3:23 PM CDT Case reviewed with RN/CM during afternoon huddle. PER huddle pt spouse requesting SNF placement at [facility] or [facility]. Message left for admission coordinators for [facility] and [facility] re: bed availability. ASSEMBLER FILTERS will continue to follow and coordinate d/c. CHRIS Herrera 02/12/2019 3:26 PM [phone] * Maria Guadalupe Roberts RN - 02/12/2019 2:18 PM CDT Case Management Progress Note Anticipated level of care at discharge: [facility] - Skilled Facility Anticipated Discharge Date: Anticipated Discharge Date: 02/13/19 Transportation at Discharge: Family/Ambulance Comments: As documented by CM on 02/09, Spouse has chosen [facility] in [place], [place], or [facility] in [place]. Have asked Fay PEREZ to initiate referrals for tentative discharge tmrw. Attempting to reach spouse to verify this remains the discharge plan. Maria Guadalupe Roberts RN [facility] X [phone] * Cheryl Mccoy, PharmD [...] results for input(s): DDIMERMGL in the last 59816 hours. Warfarin Dose History Date INR Dose [...] PharmD 02/12/2019 2:11 PM * Fay Otero, ASSEMBLER FILTERS - 02/12/2019 12:24 PM CDT Case reviewed during huddle and MDR. RN/CM to f/u with pt spouse re:: SNF placement. ASSEMBLER FILTERS will continue to follow and coordinate d/c. CHRIS Herrera 02/12/2019 12:25 PM [phone] * Christina Hamilton, PT - 02/12/2019 11:14 [...] and post visit. Christina Hamilton PT Ascom #[phone] * Brenden Ellis, PharmD - 02/12/2019 10:15 [...] monitor and adjust as appropriate. Brenden Ellis, PharmiNa 02/12/2019 10:15 AM * Carlita Menendez, ASHWINI/LD - 02/12/2019 10:13 AM CDT Clinical Nutrition Patient was given education on importance of consuming consistent amount of Vit K in their diet. Written information was given using [facility] Vit K & Anticoagulant Therapy handout. Foods [...] results for input(s): DDIMERMGL in the last 42392 hours. Warfarin Dose History Date INR Dose [...] week visit with Dr. Alexander ?? Call [phone] to schedule the first follow-up appointment with [...] the discharge summary. Kristie Martinez, PT x [phone] * Constantino Gilliam, PharmD - 02/11/2019 1:44 [...] and redness of the region.He went to [facility] and workup there including CT of [...] postop day 7. MSK: DELICIA Bilat. Nl hardware sales assistant appreciated. No cce, no erythema of surgical [...] wishes, and discussion with multidisciplinary care team (manager military, ASSEMBLER FILTERS, CSN, Therapy services, Pharmacy, and boom tender) the current recommendation for the most appropriate [...] this date. Standing posture flexed, with strong hardware sales assistant on the walker. Pt requiredv/c for feet [...] MD - 02/10/2019 11:30 AM CDT [facility] Orthopedic Surgery Daily Progress Note José Miguel Keys, 68 year old, male : 1950 CSN: [id number] Primary Care Physician: Briana Medeiros MD - [...] week visit with Dr. Alexander ?? Call [phone] to schedule the first follow-up appointment with [...] and redness of the region.He went to [facility] and workup there including CT of [...] No f/c overnight. Significantly fluid positive post op.([phone]). PE: Filed Vitals: 02/09/19 1635 02/09/19 2152 [...] Skin: wound c/d/i. MSK: DELICIA Macias. Nl hardware sales assistant appreciated. No cce, no erythema of surgical [...] wishes, and discussion with multidisciplinary care team (manager military, ASSEMBLER FILTERS, CSN, Therapy services, Pharmacy, and boom tender) the current recommendation for the most appropriate discharge destination at this time is: Shelter Facility (SNF) vs Home with HH Anticipated [...] per spouse Sathya Cheney , PT Ascom [phone] If this is the last Physical Therapy [...] and redness of the region.He went to [facility] and workup there including CT of [...] Skin: wound c/d/i. MSK: DELICIA Bilat. Nl hardware sales assistant appreciated. No cce, no erythema of surgical [...] wishes, and discussion with multidisciplinary care team (manager military, ASSEMBLER FILTERS, CSN, Therapy services, Pharmacy, and boom tender) the current recommendation for the most appropriate discharge destination at this time is: Shelter Facility (SNF) vs Home with HH Anticipated [...] behind pt. Pt becomes anxious with sitting, TLINGIT & HAIDA assist to reach hand back to chair, [...] prefer to be closer to home in [place] which wouldrequire SNF placement. OT Discharge Recommendations: Inpatient Rehab;Shelter Facility If this is the last Occupational Therapy visit, this serves as the discharge summary. Autumn Graham OT * Fay Otero MSW - 02/09/2019 3:09 PM CDT Case reviewed with RN/CM during afternoon huddle. Per huddle pt spouse requesting SNF placement at [facility] (1st choice) and [facility] (2nd choice). Per huddle pt scheduled for a procedure next Tuesday. ASSEMBLER FILTERS will refer pt to these facilities once his closer to d/c. CHRIS Herrera [phone] * Sathya Cheney, PT - 02/09/2019 2:44 [...] level rehab. Sathya Cheney , PT Ascom [phone] If this is the last Physical Therapy [...] 02/09/2019 2:20 PM CDT Patient from [place], lives with his . Patient s/p debridement infected R hip prosthesis. Delayed primary closure, wound vac til closure; 4-5 days. Continue iv anbx, await new cx. Patient is traditional medicaire. Max assist x2 with mobility. Eligible for skilled rehab. Andra Oneill cm, spoke to re facilities in [place] for skill rehab. [facility]. Anticipate discharge next week. Back up facility, if needed, [facility]. Will inform sw Fay chen rn/cm [phone] * Fay Otero MSW - 02/09/2019 11:26 AM CDT Case reviewed during morning huddle. RN/CM to discuss d/c options with pt spouse. ASSEMBLER FILTERS will continueto follow and coordinate d/c. CHRIS Herrera [phone] * Sathya Cheney, PT - 02/09/2019 11:14 [...] MD - 02/08/2019 2:04 PM CDT [facility] Orthopedic Surgery Postoperative Check José Miguel Keys, 68 year old, male : 1950 CSN: [id number] Admitted: 02/02/2019 8:57 PM Subjective Nausea/vomiting: none [...] Aly PharmD 02/08/2019 12:53 PM * Deann Eemrson, RD/LD - 02/08/2019 12:36 PM CDT CLINICAL [...] A1c indicates very good blood sugar control OPENER. Vitamin B12, zinc and vitamin C supplements [...] Pain affecting intake: No Estimated Needs: KCAL: 7461-3425(20-25 kcal/kg bw) Protein (g): 94-117(1.2-1.5 gm/kg iw) [...] results for input(s): PREALBUMIN in the last 93236 hours. No data found. PERTINENT MEDICATIONS FOR [...] 12:41 PM Ascom [phone] * Fay Otero ASSEMBLER FILTERS - 02/08/2019 11:16 AM CDT Case reviewed during morning huddle. Pt currently in OR today for I&D Right hip, possible component exchange, possible revision arthroplasty. ASSEMBLER FILTERS will continue to follow and assist with [...] and redness of the region.He went to [facility] and workup there including CT of [...] rashes, petechia, purpura. MSK: MAEE Bilat. Nl hardware sales assistant appreciated. Recent Labs Component Name 02/08/19 0256 [...] wishes, and discussion with multidisciplinary care team (manager military, ASSEMBLER FILTERS, CSN, Therapy services, Pharmacy, and boom tender) the current recommendation for the most appropriate discharge destination at this time is: Shelter Facility (SNF) vs Home with HH Anticipated [...] the original note were not included. [facility] Orthopedic Surgery Daily Progress Note 02/08/2019 José Miguel Keys, 68 year old, male : 1950 CSN: [id number] - Admission Date/Time: 02/02/2019 8:57 PM -Today's [...] Procedure Component Value - Date/Time CULTURE ANAEROBE [[id number]] (Normal) Collected: 02/04/191128 Lab Status: Preliminary result Specimen: Micro from Hip Updated: 02/06/19633 Culture Culture in progress Narrative: Surgical Description: Right Hip CULTURE WOUND+GRAM STAIN [[id number]] (Abnormal) (Susceptibility) Collected: 02/04/191128 Lab Status: Final [...] Susceptible 1 ug/mL UMESH Final CULTURE ANAEROBE [[id number]] (Normal) Collected: 02/04/191128 Lab Status: Preliminary result Specimen: Micro from Hip Updated: 02/06/1934 Culture Culture in progress Narrative: Surgical Description: Right Hip CULTURE TISSUE+GRAM STAIN [[id number]] (Abnormal) (Susceptibility) Collected: 02/04/191128 Lab Status: Final [...] Susceptible 1 ug/mL UMESH Final CULTURE BLOOD [[id number]] Collected: 02/02/192237 Lab Status: Final result Specimen: Blood Peripheral Updated: 02/08/19230 Culture No growth day 5 CULTURE BLOOD [[id number]] Collected: 02/02/192237 Lab Status: Final result Specimen: [...] mg by mouth once daily nystatin (MYCOSTATIN) 988785 UNIT/GM powder APPLY TO AFFECTED AREA TWICE [...] mouth once daily vitamin D, ergocalciferol, (DRISDOL) 22155 UNITS capsule Take 50,000 Units by mouth [...] may change. Sathya Cheney , PT Ascom [phone] If this is the last Physical Therapy [...] living situation Sathya Cheney , PT Ascom [phone] If this is the last Physical Therapy [...] appropriate discharge plan. Maria Guadalupe Roberts RN [facility] X [phone] * Fay Otero MSW - 02/07/2019 11:57 AM CDT Pt scheduled for OR on 02/08/19. PER rounds pt may need some level of rehab. ASSEMBLER FILTERS will continue to follow and coordinate d/c. [...] surgical procedure Sathya Cheney , PT Ascom [phone] If this is the last Physical Therapy [...] MD - 02/07/2019 9:41 AM CDT [facility] Orthopedic Surgery Daily Progress Note José Miguel Keys, 68 year old, male : 1950 CSN: [id number] Primary Care Physician: Briana Medeiros MD - [...] and redness of the region.He went to [facility] and workup there including CT of [...] 98% 96% 98% 98% Weight: Height: I/O/T/U: 3358/1075/2283/[id number]. Gen:ASA, mild distress. Does not appear in pain. Oriented to self, month HEENT: NCAT CV: RRR, No m/g/r, no ectopy Carol: No adventitial sounds or wheezes, basilar crackles improved with cough Abd: benign Neuro: nonfocal; proprioception, gait not tested. Reflexes intact Psych: approp. No Si/Hi Skin: nl, senescent changes. No rashes, petechia, purpura. MSK: DELICIA Bilat. Nl hardware sales assistant appreciated. Recent Labs Component Name 02/07/19 0409 [...] wishes, and discussion with multidisciplinary care team (manager military, ASSEMBLER FILTERS, CSN, Therapy services, Pharmacy, and boom tender) the current recommendation for the most appropriate discharge destination at this time is: Shelter Facility (SNF) Anticipated discharge date: TBD Disposition: [...] returns home Sathya Cheney , PT Ascom [phone] If this is the last Physical Therapy [...] living situation Sathya Cheney , PT Ascom [phone] If this is the last Physical Therapy [...] living situation Sathya Cheney , PT Ascom [phone] If this is the last Physical Therapy [...] Chief Complaint: Right hip pain swelling Insurance: Medicare/[employer] Family Support (name and phone): Extended Emergency Contact Information Primary Emergency Contact: Trinity Keys Address: [address] [place] [address] [place] [address] [facility] Mobile Relation: Spouse Dot Etcher Apprentice needed? No Anticipated Discharge Date: 02/15/19 Anticipated level of care at discharge: Unknown SNF vs [facility] Prior Level of Functioning: dependent on spouse as caregiver Equipment at Home: Equipment At Home: Commode-Bedside;Walker-2 Wheeled;Walker-4 Wheeled with Seat;Wheelchair-Standard Additional Equipment needed at home (does not have at home now): PCP: [facility] Pharmacy benefit: Yes Discharge Medication Needs: SW Referral: Yes, Fay ASSEMBLER FILTERS aware/following Transportation home: tbd Transportation to MD appointments: Transportation to Appointments: Family Home Care recommended and order obtained: If needed at discharge will need order entered in [facility] If patient requires HHC at discharge, he/she requests: patient choice Comments: s/p right hip irrigation and debridement, placement of antibiotic beads, and wound vacuumapplication , IV abts, pt/ot, pain control. BNA: 11 DRILL PRESS SET UP OPERATOR: 7 Will continue to follow. For any questions or needs please contact: Solar Electric/Photovoltaic Installer Name/Phone number: Maria Guadalupe Roberts RN [facility] X [phone], If this is the last mental health case managersenior technical program manager this note serves as discharge summary * Fay Otero MSW - 02/06/2019 11:33 AM CDT Case reviewed during MDR rounds. Pt scheduled for OR on 02/08/19. PER rounds pt may need some level of rehab. ASSEMBLER FILTERS will continue to follow and coordinate d/c. * Blaire Meek MD - 02/06/2019 7:20 AM CDT 02/06/2019 7:20 AM Admitted: 02/02/2019 8:57 PM HD: 4 CC: Right hip pain Summary:??68 year old??white male with hx CAD, atrial fibrillation, prior DVT, COPD, cirrhosis, OSAwho presents with 1 week of right hip pain with associated swelling and redness of the region.He went to [facility] and workup there including CT of [...] rashes, petechia, purpura. MSK: DELICIA Bilbipin. Nl hardware sales assistant appreciated. Recent Labs Component Name 02/06/1941802/05/1923702/04/19 0234 [...] wishes, and discussion with multidisciplinary care team (manager military, ASSEMBLER FILTERS, CSN, Therapy services, Pharmacy, and boom tender) the current recommendation for the most appropriate discharge destination at this time is: Shelter Facility (SNF) Anticipated discharge date: TBD Disposition: [...] MD - 02/06/2019 6:39 AM CDT [facility] Orthopedic Surgery Daily Progress Note José Miguel Keys, 68 year old, male : 1950 CSN: [id number] Primary Care Physician: Briana Medeiros MD - [...] Admit date: 02/02/2019 Admitting Physician: Lilly Jurado APRN-HAMMERER TAB Attending Physician: Michelle Pratt MD IP/Observation: Inpatient [...] vision loss, dizziness, dysuria. He went to [facility] and workup thereincluding CT of the [...] results for input(s): SEDRATE in the last 21887 hours. Recent Labs Component Name 08/15/17 0348 08/09/17 0745 08/05/17 0445 CRP 4.1* 32.0* 14.4* No results for input(s): TROPONIN in the last 48721 hours. No results for input(s): DDIMER in the last 24008 hours. Recent Labs Component Name 07/24/17 0508 [...] any specific number. He was seen at [facility] yesterday and found to be tachycardic and so was started on broad spectrum antibiotics. They also obtained a pelvis xray and CT of right femur He notably has had bilateral ARNALDO performed with the right performed in 2005 and the left in 2010. No complaints on the left ARNALDO. His primary surgeon has since moved to [place] according to the patient. Dr. Amos at [facility] did not feel comfortable managing this [...] min a Outcome: Ongoing * Jonny Reynolds, [facility] - 02/05/2019 8:55 AM CDT [...] labs and adjust dose per protocol. Eunice Ayl, PharmD 02/05/2019 8:52 AM Vancomycin Dosing Protocol [...] Procedure Component Value - Date/Time CULTURE ANAEROBE [[id number]] Collected: 02/04/191128 Lab Status: In process Specimen: Micro from Hip Updated: 02/04/19 1208 CULTURE WOUND+GRAM STAIN [[id number]] Collected: 02/04/191128 Lab Status: Preliminary result Specimen: Micro from Hip Updated: 02/04/192226 Gram Stain Heavy Polymorphonuclear cells Moderate Red blood cells No organisms seen Narrative: Surgical Description: Right Hip CULTURE ANAEROBE [[id number]] Collected: 02/04/191128 Lab Status: In process Specimen: Micro from Hip Updated: 02/04/19 1208 CULTURE TISSUE+GRAM STAIN [[id number]] Collected: 02/04/191128 Lab Status: Preliminary result Specimen: Micro from Hip Updated: 02/04/192237 Gram Stain Moderate Polymorphonuclear cells Heavy Red blood cells No organisms seen Narrative: Surgical Description: Right Hip CULTURE BLOOD [[id number]] Collected: 02/02/192237 Lab Status: Preliminary result Specimen: Blood Peripheral Updated: 02/05/19 0230 Culture No growth CULTURE BLOOD [[id number]] Collected: 02/02/192237 Lab Status: Preliminary result Specimen: [...] pain med is needed. * Jonny Reynolds, [facility] - 02/04/2019 2:42 PM CDT [...] Admit date: 02/02/2019 Admitting Physician: Lilly Jurado APRN-HAMMERER TAB Attending Physician: Michelle Pratt MD IP/Observation: Inpatient [...] vision loss, dizziness, dysuria. He went to [facility] and workup thereincluding CT of the [...] results for input(s): SEDRATE in the last 88759 hours. Recent Labs Component Name 08/15/17 0348 08/09/17 0745 08/05/17 0445 CRP 4.1* 32.0* 14.4* No results for input(s): TROPONIN in the last 92012 hours. No results for input(s): DDIMER in the last 03645 hours. Recent Labs Component Name 07/24/17 0508 [...] upon review. Michelle Pratt MD Hospitalist * Lrary Alexander MD - 02/04/2019 6:36 AM CDT [...] Procedure Component Value - Date/Time CULTURE BLOOD [[id number]] Collected: 02/02/192237 Lab Status: Preliminary result Specimen: Blood Peripheral Updated: 02/04/19 0230 Culture No growth 24 hours CULTURE BLOOD [[id number]] Collected: 02/02/192237 Lab Status: Preliminary result Specimen: [...] by mouth once daily ??? nystatin (MYCOSTATIN) 909265 UNIT/GM powder APPLY TO AFFECTED AREA TWICE [...] once daily ??? vitamin D, ergocalciferol, (DRISDOL) 84201 UNITS capsule Take 50,000 Units by mouth [...] touch and edematous. Voiding perurinal. NPO since GA for surgery today. CHG skin wash done. [...] Admit date: 02/02/2019 Admitting Physician: Lilly Jurado APRN-HAMMERER TAB Attending Physician: Michelle Pratt MD IP/Observation: Inpatient [...] vision loss, dizziness, dysuria. He went to [facility] and workup thereincluding CT of the [...] results for input(s): SEDRATE in the last 57001 hours. Recent Labs Component Name 08/15/17 0348 08/09/17 0745 08/05/17 0445 CRP 4.1* 32.0* 14.4* No results for input(s): TROPONIN in the last 18975 hours. No results for input(s): DDIMER in the last 89417 hours. Recent Labs Component Name 07/24/17 0508 [...] Michelle Pratt MD Hospitalist * Jonny Reynolds, [facility] - 02/03/2019 3:51 AM CDT [...] vision loss, dizziness, dysuria. He went to [facility] and workup thereincluding CT of the [...] by mouth once daily ??? nystatin (MYCOSTATIN) 122863 UNIT/GM powder APPLY TO AFFECTED AREA TWICE [...] once daily ??? 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 [...] results for input(s): CDIFFTOXINAB in the last 96466 hours. No results for input(s): SEDRATE in the last 28403 hours. Recent Labs Component Name 08/15/17 0348 08/09/17 0745 08/05/17 0445 CRP 4.1* 32.0* 14.4* No results for input(s): CK in the last 95265 hours. .No results for input(s): VANCOTROUGH, VANCOPEAK, VANCSERIES in the last 78558 hours. Invalid input(s): VANCORAND Recent Labs Component [...] CDTAssociated Order(s): IP CONSULT TO PASTORAL CARE Sign Language Translator responded to consult for prayer by visiting with Pt and family and offering prayer and spiritual care support. * Larry Alexander MD - 02/03/2019 5:33 AM CDTAssociated Order(s): IP CONSULT TO ORTHOPEDIC SURGERY Orthopaedic Surgery Consult Note José Miguel Keys 1950 [id number] K Ney Medeiros MD Date of service: [...] any specific number. He was seen at [facility] yesterday and found to be tachycardic and so was started on broad spectrum antibiotics. They also obtained a pelvis xray and CT of right femur He notably has had bilateral ARNALDO performed with the right performed in 2005 and the left in 2010. No complaints on the left ARNALDO. His primary surgeon has since moved to [place] according to the patient. Dr. 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 nystatin (MYCOSTATIN) 395113 UNIT/GM powder APPLY TO AFFECTED AREA TWICE [...] once daily ??? vitamin D, ergocalciferol, (DRISDOL) 87513 UNITS capsule Take 50,000 Units by mouth [...] hip scar Distal DF/PF ankle/toesR LE [facility] - R femur/hip and CT [...] cultures and intraoperative a ppearance, NPO at hi, hold eliquis, pain control, abx per ID documented in this encounter OR Notes * Operative - Larry Alexander MD - 02/08/2019 3:01 PM CDT [facility] Operative Report PATIENT NAME: JOSÉ MIGUEL KEYS MR#: [id number] DATE OF : 1950 CSN: [id number] DATE OF ADMISSION: 02/02/2019 ROOM#: [facility] DATE OF OPERATION: 02/08/2019 PREOPERATIVE [...] complex surgical wound. SURGEON: Frandy Alexander M.D. MANAGER PRIVATE: Alberto Wakefield MD. ANESTHESIA: General. INDICATIONS FOR PROCEDURE: The patient is a 68-year-old man, who has had bilateral hip arthroplasties by another surgeon, who became infected and was transferred to [facility] for a tertiary level of care. He [...] ALEXANDER M.D. DICTATED FOR: PERRY/GURWINDER JOB ID: [id number] Operative Report * Brief Op Note - Alberto Shell MD - 02/08/2019 11:51 AM CDT Brief Op Note Procedure: REVISION HIP ARTHROPLASTY BOTH COMPONENT, EXCISION BURSA (BURSECTOMY) TROCHANTERIC/HIP, CLOSURE PRIMARY DELAYED/SECONDARY (ANY AREA) Patient Name: José Miguel Keys Date of Service: 02/08/2019 Pre-Op Diagnosis: Infected Right ARNALDO, cultures positive for MRSA Post-Op Diagnosis: same Surgeon(s) and Role: * Larry Alexander MD - Primary District Plant Supervisor(s): Alberto Shell MD Anesthesia Type: general Complications: none Findings: Well fixed femoral stem EBL: 400 mL Urine Output : 250 mL IV Fluid Intake: Please see anesthesia notes Drains: GJ Tube Percutaneous Endoscopic Gastrostomy Abdomen;Left (Active) Specimen(s): none Alberto Shell MD * Operative - Larry Alexander MD - 02/04/2019 12:19 PM CDT [facility] Operative Report PATIENT NAME: JOSÉ MIGUEL KEYS MR#: [id number] DATE OF : 1950 CSN: [id number] DATE OF ADMISSION: 02/02/2019 ROOM#: [id number] DATE OF OPERATION: 02/04/2019 PREOPERATIVE DIAGNOSIS: Infected right total hip arthroplasty. POSTOPERATIVE DIAGNOSIS: Infected right total hip arthroplasty. PROCEDURES: 1. Irrigation and debridement with arthrotomy, infected right hip Arthroplasty. 2. Irrigation and debridement of infected right hip trochanteric bursa 2. Wound VAC application, right hip. SURGEON: Frandy Alexander M.D. MANAGER PRIVATE: Jason Blackburn MD. ANESTHESIA: General. INDICATION FOR [...] ALEXANDER M.D. DICTATED FOR: PERRY/GURWINDER JOB ID: [id number] Operative Report * Brief Op Note - Jason Blackburn MD - 02/04/2019 11:56 AM CDT Brief Op Note Procedure: RIGHT HIP IRRIGATION AND DEBRIDEMENT, WOUND VAC PLACEMENT Patient Name: José Miguel Kramer Ludmila Date of Service: 02/04/2019 Pre-Op Diagnosis: right infected ARNALDO Post-Op Diagnosis: same Surgeon(s) and Role: * Larry Alexander MD - Primary District Plant Supervisor(s): Jason Blackburn MD Anesthesia Type: general Complications: none Findings: Gross purulence with deep tracks. EBL: minimal blood loss Drains: GJ Tube Percutaneous Endoscopic Gastrostomy Abdomen;Left (Active) Specimen(s): tissue and fluid cultures Jason Blackburn MD documented in this encounter Plan of Treatment Upcoming Encounters Date Type Department Care Team (Late st Contact Info) Description 07/09/2024 12:30 PM AUDIO VISUAL SECRETARY Office Visit [facility] - [address] [phone] Twin Miller MD [address] [facility] [place] [address] 09/19/2024 2:00 PM CDT Office Visit [facility] - Orthopedic Surgery [address] [facility] [place] [phone] Larry Alexander MD [address] [facility] [address] [place] [address] Scheduled Orders Name Type Priority Associated Diagnoses [...] NOCTURNAL 02 Routine 02/09/2019 12:01 AM CDT ID SECD CLOS SURG WND EXTEN/COMPLIC 02/08/2019 10:34 [...] 20.0 ug/mL 02/15/2019 5:16 PM CDT [facility] Blood BLOOD SPECIMEN / Unknown Venipuncture / Unknown 02/15/2019 4:50 PM CDT 02/15/2019 4:55 PM CDT Poncho Cisneros MD LAB - CHEMISTRY ROYCE KLINE [facility] [address] [place] [address] * (ABNORMAL) PT-INR (02/15/2019 3:07 AM CDT) PT 18.9(H) 9.5 - 11.6 sec 02/15/2019 4:09 AM CDT [facility] INR 1.9(H) 0.9 - 1.1 02/15/2019 4:09 AM [facility] Blood BLOOD SPECIMEN / Unknown Lab Venipuncture / Unknown 02/15/2019 3:07 AM CDT 02/15/2019 3:51 AM CDT [facility] - 02/15/2019 4:09 AM CDT Conventional Warfarin Anticoagulant Therapy: INR Reference Range: ??2.0-3.0 Intensive Warfarin Anticoagulant Therapy: INR Reference Range: ? 2.5-3.5 Blaire Meek MD LAB - COAGULATION OR DERABLES [facility] [address] [place], [place] [id number] * (ABNORMAL) BASIC METABOLIC PANEL (CALCIUM TOTAL) (02/15/2019 3:07 AM CDT) Glucose 98 74 - 106 mg/dL 02/15/2019 4:27 AM [facility] Sodium 141 136 - 145 mmol/L 02/15/2019 4:27 AM [facility] Potassium 3.7 3.5 - 5.1 mmol/L 02/15/2019 4:27 AM [facility] Chloride 106 98 - 107 mmol/L 02/15/2019 4:27 AM [facility] CO2 28 23 - 31 mmol/L 02/15/2019 4:27 AM [facility] Calcium 8.6 8.4 - 10.2 mg/dL 02/15/2019 4:27 AM [facility] Anion Gap 7(L) 8 - 16 mmol/L 02/15/2019 4:27 AM [facility] BUN 17 8.4 - 25.7 mg/dL 02/15/2019 4:27 AM [facility] Creatinine 1.02 0.73 - 1.18 mg/dL 02/15/2019 4:27 AM [facility] eGFR by MDRD >60 mL/min/1.7 3m2 02/15/2019 4:27 AM [facility] eGFR by MDRD >60 mL/min/1.7 3m2 02/15/2019 4:27 AM [facility] Blood BLOOD SPECIMEN / Unknown Lab Venipuncture / Unknown 02/15/2019 3:07 AM CDT 02/15/2019 3:51 AM CDT Blaire Meek MD LAB - CHEMISTRY ROYCE KLINE [facility] Organization Address City/State/ZIP Co de Phone Number [facility] [address] [place] [address] * (ABNORMAL) CBC W AUTO DIFFERENTIAL (02/15/2019 3:07 AM CDT) [facility] WBC 8.5 4.4 - 10.7 x10E9/L 02/15/2019 4:[facility] W[facility] Corrected 02/15/2019 4:05 AM CDT [facility] RBC 2.74(L) 3.80 - 5.40 x10E12/L 02/15/2019 4:05 AM [facility] Hemoglobin 7.4(L) 12.0 - 17.6 gm/dL 02/15/2019 4:05 AM [facility] Hematocrit 25.0(L) 35.2 - 51.7 % 02/15/2019 4:05 AM [facility] MCV 91.2 80.7 - 98.3 fl 02/15/2019 4:05 AM CDT [facility] MCH 27.0 26.7 - 34.0 pg 02/15/2019 4:05 AM CDT [facility] MCHC 29.6(L) 30.8 - 35.9 gm/dL 02/15/2019 4:05 AM [facility] Platelet Count 284 153 - 416 x10E9/L 02/15/2019 4:05 AM [facility] RDW-CV 17.0(H) 12.1 - 14.9 % 02/15/2019 4:05 [facility] MPV 11.5 9.4 - 12.9 fl 02/15/2019 4:05 AM CDT [facility] Neutrophils % 72.9 44.0 - 73.0 % 02/15/2019 4:05 AM CDT [facility] Lymphocytes % 8.7(L) 20.0 - 43.0 % 02/15/2019 4:05 AM CDT [facility] Monocytes % 8.0 5.0 - 13.0 % 02/15/2019 4:05 AM [facility] Eosinophils % 8.0(H) 0.0 - 6.0 % 02/15/2019 4:05 AM T [facility] Basophils % 0.5 0.0 - 2.0 % 02/15/2019 4:05 AM T [facility] Immature Granulocytes 1.9(H) 0 - 1 % 02/15/2019 4:05 AM T [facility] Neutrophil Absolute 6.18 2.01 - 7.14 x10E9/L 02/15/2019 4:05 AM [facility] Lymphocytes Absolute 0.74(L) 1.07 - 3.94 x10E9/L 02/15/2019 4:05 AM T [facility] Monocytes Absolute 0.68 0.26 - 1.07 x10E9/L 02/15/2019 4:05 AM [facility] Eosinophils Absolute 0.68(H) 0 - 0.47 x10E9/L 02/15/2019 4:05 AM [facility] Basophils Absolute 0.04 0 - 0.08 x10E9/L 02/15/2019 4:05 AM [facility] Immature Granulocytes Absolute 0.16(H) 0.00 - 0.06 x10E9/L 02/15/2019 4:05 AM [facility] nRBC Auto 0 /100 WBC 02/15/2019 4:05 AM [facility] Blood BLOOD SPECIMEN / Unknown Lab Venipuncture / Unknown 02/15/2019 3:07 AM CDT 02/15/2019 3:51 AM CDT Blaire Meek MD LAB - HEMATOLOGY ORD ERABLES [facility] [address] [place] [address] * (ABNORMAL) PT-INR (02/14/2019 3:46 AM CDT) PT 18.3(H) 9.5 - 11.6 sec 02/14/2019 5:27 AM T [facility] INR 1.9(H) 0.9 - 1.1 02/14/2019 5:27 AM [facility] Blood BLOOD SPECIMEN / Unknown Lab Venipuncture / Unknown 02/14/2019 3:46 AM CDT 02/14/2019 4:16 AM CDT Narrative [facility] - 02/14/2019 5:27 AM CDT Conventional Warfarin Anticoagulant Therapy: INR Reference Range: ??2.0-3.0 Intensive Warfarin Anticoagulant Therapy: INR Reference Range: ? 2.5-3.5 Blaire Meek MD LAB - COAGULATION OR DERABLES [facility] [address] [place] [address] * (ABNORMAL) BASIC METABOLIC PANEL (CALCIUM TOTAL) (02/14/2019 3:46 AM CDT) Glucose 113(H) 74 - 106 mg/dL 02/14/2019 4:56 AM [facility] Sodium 141 136 - 145 mmol/L 02/14/2019 4:56 AM [facility] Potassium 3.7 3.5 - 5.1 mmol/L 02/14/2019 4:56 AM [facility] Chloride 108(H) 98 - 107 mmol/L 02/14/2019 4:56 AM [facility] CO2 28 23 - 31 mmol/L 02/14/2019 4:56 AM [facility] Calcium 8.4 8.4 - 10.2 mg/dL 02/14/2019 4:56 AM [facility] Anion Gap 5(L) 8 - 16 mmol/L 02/14/2019 4:56 AM [facility] BUN 18 8.4 - 25.7 mg/dL 02/14/2019 4:56 AM [facility] Creatinine 1.10 0.73 - 1.18 mg/dL 02/14/2019 4:56 AM [facility] eGFR by MDRD >60 mL/min/1.7 3m2 02/14/2019 4:56 AM [facility] eGFR by MDRD >60 mL/min/1.7 3m2 02/14/2019 4:56 AM [facility] Blood BLOOD SPECIMEN / Unknown 02/14/2019 3:46 AM CDT 02/14/2019 4:15 AM CDT Blaire Meek MD LAB - CHEMISTRY ROYCE Lutz Organization Address City/State/ZIP Co de Phone Number [facility] [address] [place] [address] * (ABNORMAL) CBC W AUTO DIFFERENTIAL (02/14/2019 2:58 AM CDT) WBC 9.6 4.4 - 10.7 x10E9/L 02/14/2019 4:47 AM CDT [facility] WBC Corrected 02/14/2019 4:47 AM CDT [facility] RBC 2.80(L) 3.80 - 5.40 x10E12/L 02/14/2019 4:47 AM CDT [facility] Hemoglobin 7.7(L) 12.0 - 17.6 gm/dL 02/14/2019 4:47 AM CDT [facility] Hematocrit 26.0(L) 35.2 - 51.7 % 02/14/2019 4:47 AM CDT [facility] MCV 92.9 80.7 - 98.3 fl 02/14/2019 4:47 AM CDT [facility] MCH 27.5 26.7 - 34.0 pg 02/14/2019 4:47 AM CDT [facility] MCHC 29.6(L) 30.8 - 35.9 gm/dL 02/14/2019 4:47 AM CDT [facility] Platelet Count 288 153 - 416 x10E9/L 02/14/2019 4:47 AM CDT [facility] RDW-CV 17.0(H) 12.1 - 14.9 % 02/14/2019 4:47 AM CDT [facility] MPV 11.9 9.4 - 12.9 fl 02/14/2019 4:47 AM CDT [facility] Neutrophils % 71.9 44.0 - 73.0 % 02/14/2019 4:47 AM CDT [facility] Lymphocytes % 8.6(L) 20.0 - 43.0 % 02/14/2019 4:47 AM CDT [facility] Monocytes % 9.6 5.0 - 13.0 % 02/14/2019 4:47 AM CDT [facility] Eosinophils % 7.0(H) 0.0 - 6.0 % 02/14/2019 4:47 AM CDT [facility] Basophils % 0.5 0.0 - 2.0 % 02/14/2019 4:47 AM CDT [facility] Immature Granulocytes 2.4(H) 0 - 1 % 02/14/2019 4:47 AM CDT [facility] Neutrophil Absolute 6.90 2.01 - 7.14 x10E9/L 02/14/2019 4:47 AM CDT [facility] Lymphocytes Absolute 0.83(L) 1.07 - 3.94 x10E9/L 02/14/2019 4:47 AM CDT [facility] Monocytes Absolute 0.92 0.26 - 1.07 x10E9/L 02/14/2019 4:47 AM CDT [facility] Eosinophils Absolute 0.67(H) 0 - 0.47 x10E9/L 02/14/2019 4:47 AM CDT [facility] Basophils Absolute 0.05 0 - 0.08 x10E9/L 02/14/2019 4:47 AM CDT [facility] Immature Granulocytes Absolute 0.23(H) 0.00 - 0.06 x10E9/L 02/14/2019 4:47 AM CDT [facility] nRBC Auto 0 /100 WBC 02/14/2019 4:47 AM CDT [facility] Blood BLOOD SPECIMEN / Unknown Lab Venipuncture / Unknown 02/14/2019 2:58 AM CDT 02/14/2019 4:10 AM CDT Blaire Meek MD LAB - HEMATOLOGY ORD ERABLES [facility] [address] [place] [address] * XR CHEST FOR PICC PLMT (Place [...] 11.6 sec 02/13/2019 5:20 AM CDT [facility] INR 1.3(H) 0.9 - 1.1 02/13/2019 5:20 AM CDT [facility] Blood BLOOD SPECIMEN / Unknown Lab Venipuncture / Unknown 02/13/2019 4:40 AM CDT 02/13/2019 4:56 AM CDT Narrative [facility] - 02/13/2019 5:20 AM CDT Conventional Warfarin Anticoagulant Therapy: INR Reference Range: ??2.0-3.0 Intensive Warfarin Anticoagulant Therapy: INR Reference Range: ? 2.5-3.5 Blaire Meek MD LAB - COAGULATION OR DERABLES [facility] [address] [place] [address] * BASIC METABOLIC PANEL (CALCIUM TOTAL) (02/13/2019 4:40 AM CDT) Glucose 106 74 - 106 mg/dL 02/13/2019 5:49 AM CDT [facility] Sodium 142 136 - 145 mmol/L 02/13/2019 5:49 AM CDT [facility] Potassium 3.6 3.5 - 5.1 mmol/L 02/13/2019 5:49 AM CDT [facility] Chloride 106 98 - 107 mmol/L 02/13/2019 5:49 AM CDT [facility] CO2 28 23 - 31 mmol/L 02/13/2019 5:49 AM CDT [facility] Calcium 8.6 8.4 - 10.2 mg/dL 02/13/2019 5:49 AM CDT [facility] Anion Gap 8 8 - 16 mmol/L 02/13/2019 5:49 AM CDT [facility] BUN 17 8.4 - 25.7 mg/dL 02/13/2019 5:49 AM CDT [facility] Creatinine 0.97 0.73 - 1.18 mg/dL 02/13/2019 5:49 AM CDT [facility] eGFR by MDRD >60 mL/min/1.7 3m2 02/13/2019 5:49 AM CDT [facility] eGFR by MDRD >60 mL/min/1.7 3m2 02/13/2019 5:49 AM CDT [facility] Blood BLOOD SPECIMEN / Unknown Lab Venipuncture / Unknown 02/13/2019 4:40 AM CDT 02/13/2019 4:56 AM CDT Blaire Meek MD LAB - CHEMISTRY ROYCE KLINE [facility] Organization Address City/State/ZIP Co de Phone Number [facility] [address] [place] [address] * (ABNORMAL) CBC W AUTO DIFFERENTIAL (02/13/2019 4:40 AM CDT) [facility] Signature WBC 8.9 4.4 - 10.7 x10E9/L 02/13/2019 5:22 AM CDT [facility] WBC Corrected 02/13/2019 5:22 AM CDT [facility] RBC 2.73(L) 3.80 - 5.40 x10E12/L 02/13/2019 5:22 AM CDT [facility] Hemoglobin 7.6(L) 12.0 - 17.6 gm/dL 02/13/2019 5:22 AM CDT [facility] Hematocrit 25.1(L) 35.2 - 51.7 % 02/13/2019 5:22 AM CDT [facility] MCV 91.9 80.7 - 98.3 fl 02/13/2019 5:22 AM CDT [facility] MCH 27.8 26.7 - 34.0 pg 02/13/2019 5:22 AM CDT [facility] MCHC 30.3(L) 30.8 - 35.9 gm/dL 02/13/2019 5:22 AM [facility] Platelet Count 287 153 - 416 x10E9/L 02/13/2019 5:22 AM [facility] RDW-CV 16.7(H) 12.1 - 14.9 % 02/13/2019 5:22 AM [facility] MPV 11.7 9.4 - 12.9 fl 02/13/2019 5:22 AM [facility] Neutrophils % 70.3 44.0 - 73.0 % 02/13/2019 5:22 AM [facility] Lymphocytes % 8.8(L) 20.0 - 43.0 % 02/13/2019 5:22 AM [facility] Monocytes % 8.8 5.0 - 13.0 % 02/13/2019 5:22 AM [facility] Eosinophils % 8.1(H) 0.0 - 6.0 % 02/13/2019 5:22 AM [facility] Basophils % 0.6 0.0 - 2.0 % 02/13/2019 5:22 AM [facility] Immature Granulocytes 3.4(H) 0 - 1 % 02/13/2019 5:22 AM [facility] Neutrophil Absolute 6.25 2.01 - 7.14 x10E9/L 02/13/2019 5:22 AM [facility] Lymphocytes Absolute 0.78(L) 1.07 - 3.94 x10E9/L 02/13/2019 5:22 AM [facility] Monocytes Absolute 0.78 0.26 - 1.07 x10E9/L 02/13/2019 5:22 AM [facility] Eosinophils Absolute 0.72(H) 0 - 0.47 x10E9/L 02/13/2019 5:22 AM [facility] Basophils Absolute 0.05 0 - 0.08 x10E9/L 02/13/2019 5:22 AM CDT [facility] Immature Granulocytes Absolute 0.30(H) 0.00 - 0.06 x10E9/L 02/13/2019 5:22 AM CDT [facility] nRBC Auto 0 /100 WBC 02/13/2019 5:22 AM CDT [facility] Blood BLOOD SPECIMEN / Unknown Lab Venipuncture / Unknown 02/13/2019 4:40 AM CDT 02/13/2019 4:56 AM CDT Blaire Meek MD LAB - HEMATOLOGY ORD ERABLES Performing Organization Address City/[facility]/ZIP Co de Phone Number [facility] [address] [place] [address] [phone] * (ABNORMAL) VANCOMYCIN LEVEL TROUGH (02/12/2019 9:22 AM CDT) Vancomycin Trough 22.6(H) 10.0 - 20.0 ug/mL 02/12/2019 10:04 AM CDT [facility] Blood BLOOD SPECIMEN / Unknown Lab Venipuncture / Unknown 02/12/2019 9:22 AM CDT 02/12/2019 9:32 AM CDT Blaire Meek MD LAB - CHEMISTRY ROYCE KLINE Performing Organization Address [facility] Co de Phone Number [facility] [address] [place] [phone] * PT-INR (02/12/2019 3:15 AM CDT) PT 11.0 9.5 - 11.6 sec 02/12/2019 4:07 AM CDT [facility] INR 1.0 0.9 - 1.1 02/12/2019 4:07 AM CDT [facility] Blood BLOOD SPECIMEN / Unknown Lab Venipuncture / Unknown 02/12/2019 3:15 AM CDT 02/12/2019 3:43 AM CDT Narrative [facility] - 02/12/2019 4:07 AM CDT Conventional Warfarin Anticoagulant Therapy: INR Reference Range: ??2.0-3.0 Intensive Warfarin Anticoagulant Therapy: INR Reference Range: ? 2.5-3.5 Blaire Meek MD LAB - COAGULATION OR DERABLES [facility] [address], [place] [id number] * (ABNORMAL) BASIC METABOLIC PANEL (CALCIUM TOTAL) (02/12/2019 3:15 AM CDT) Glucose 114(H) 74 - 106 mg/dL 02/12/2019 4:19 AM CDT [facility] Sodium 139 136 - 145 mmol/L 02/12/2019 4:19 AM CDT [facility] Potassium 3.5 3.5 - 5.1 mmol/L 02/12/2019 4:19 AM CDT [facility] Chloride 105 98 - 107 mmol/L 02/12/2019 4:19 AM CDT [facility] CO2 27 23 - 31 mmol/L 02/12/2019 4:19 AM CDT [facility] Calcium 8.7 8.4 - 10.2 mg/dL 02/12/2019 4:19 AM CDT [facility] Anion Gap 7(L) 8 - 16 mmol/L 02/12/2019 4:19 AM CDT [facility] BUN 19 8.4 - 25.7 mg/dL 02/12/2019 4:19 AM CDT [facility] Creatinine 0.99 0.73 - 1.18 mg/dL 02/12/2019 4:19 AM CDT [facility] eGFR by MDRD >60 mL/min/1.7 3m2 02/12/2019 4:19 AM CDT [facility] eGFR by MDRD >60 mL/min/1.7 3m2 02/12/2019 4:19 AM CDT [facility] Blood BLOOD SPECIMEN / Unknown Lab Venipuncture / Unknown 02/12/2019 3:15 AM CDT 02/12/2019 3:43 AM CDT Blaire Meek MD LAB - CHEMISTRY ROYCE KLINE [facility] [address], [place] [id number] * (ABNORMAL) CBC W AUTO DIFFERENTIAL (02/12/2019 3:15 AM CDT) Pathologist [facility] WBC 9.3 4.4 - 10.7 x10E9/L 02/12/2019 3:56 AM CDT [facility] WBC Corrected 02/12/2019 3:56 AM CDT [facility] RBC 2.84(L) 3.80 - 5.40 x10E12/L 02/12/2019 3:56 AM CDT [facility] Hemoglobin 7.5(L) 12.0 - 17.6 gm/dL 02/12/2019 3:56 AM CDT [facility] Hematocrit 26.0(L) 35.2 - 51.7 % 02/12/2019 3:56 AM CDT [facility] MCV 91.5 80.7 - 98.3 fl 02/12/2019 3:56 AM CDT [facility] MCH 26.4(L) 26.7 - 34.0 pg 02/12/2019 3:56 AM CDT [facility] MCHC 28.8(L) 30.8 - 35.9 gm/dL 02/12/2019 3:56 AM CDT [facility] Platelet Count 270 153 - 416 x10E9/L 02/12/2019 3:56 AM CDT [facility] RDW-CV 16.3(H) 12.1 - 14.9 % 02/12/2019 3:56 AM CDT [facility] MPV 11.7 9.4 - 12.9 fl 02/12/2019 3:56 AM CDT [facility] Neutrophils % 74.3(H) 44.0 - 73.0 % 02/12/2019 3:56 AM CDT [facility] Lymphocytes % 8.4(L) 20.0 - 43.0 % 02/12/2019 3:56 AM CDT [facility] Monocytes % 8.4 5.0 - 13.0 % 02/12/2019 3:56 AM CDT [facility] Eosinophils % 6.0 0.0 - 6.0 % 02/12/2019 3:56 AM CDT [facility] Basophils % 0.4 0.0 - 2.0 % 02/12/2019 3:56 AM CDT [facility] Immature Granulocytes 2.5(H) 0 - 1 % 02/12/2019 3:56 AM CDT [facility] Neutrophil Absolute 6.88 2.01 - 7.14 x10E9/L 02/12/2019 3:56 AM CDT [facility] Lymphocytes Absolute 0.78(L) 1.07 - 3.94 x10E9/L 02/12/2019 3:56 AM CDT [facility] Monocytes Absolute 0.78 0.26 - 1.07 x10E9/L 02/12/2019 3:56 AM CDT [facility] Eosinophils Absolute 0.56(H) 0 - 0.47 x10E9/L 02/12/2019 3:56 AM CDT [facility] Basophils Absolute 0.04 0 - 0.08 x10E9/L 02/12/2019 3:56 AM CDT [facility] Immature Granulocytes Absolute 0.23(H) 0.00 - 0.06 x10E9/L 02/12/2019 3:56 AM CDT [facility] nRBC Auto 0 /100 WBC 02/12/2019 3:56 AM CDT [facility] Blood BLOOD SPECIMEN / Unknown Lab Venipuncture / Unknown 02/12/2019 3:15 AM CDT 02/12/2019 3:44 AM CDT Blaire Meek MD LAB - HEMATOLOGY ORD ERABLES Performing Organization Address City/[facility] Co de Phone Number [facility] [address] [place] [address] * PT-INR (02/11/2019 2:34 PM CDT) PT 11.0 9.5 - 11.6 sec 02/11/2019 3:04 PM CDT [facility] INR 1.0 0.9 - 1.1 02/11/2019 3:04 PM CDT [facility] Blood BLOOD SPECIMEN / Unknown Lab Venipuncture / Unknown 02/11/2019 2:34 PM CDT 02/11/2019 2:52 PM CDT Narrative [facility] - 02/11/2019 3:04 PM CDT Conventional Warfarin Anticoagulant Therapy: INR Reference Range: ??2.0-3.0 Intensive Warfarin Anticoagulant Therapy: INR Reference Range: ? 2.5-3.5 Blaire Meek MD LAB - COAGULATION OR DERABLES [facility] [address] [place] [address] * (ABNORMAL) BASIC METABOLIC PANEL (CALCIUM TOTAL) (02/11/2019 2:42 AM CDT) Glucose 113(H) 74 - 106 mg/dL 02/11/2019 4:37 AM CDT [facility] Sodium 137 136 - 145 mmol/L 02/11/2019 4:37 AM CDT [facility] Potassium 3.5 3.5 - 5.1 mmol/L 02/11/2019 4:37 AM CDT [facility] Chloride 101 98 - 107 mmol/L 02/11/2019 4:37 AM CDT [facility] CO2 27 23 - 31 mmol/L 02/11/2019 4:37 AM CDT [facility] Calcium 9.0 8.4 - 10.2 mg/dL 02/11/2019 4:37 AM CDT [facility] Anion Gap 9 8 - 16 mmol/L 02/11/2019 4:37 AM CDT [facility] BUN 21 8.4 - 25.7 mg/dL 02/11/2019 4:37 AM CDT [facility] Creatinine 1.00 0.73 - 1.18 mg/dL 02/11/2019 4:37 AM CDT [facility] eGFR by MDRD >60 mL/min/1.7 3m2 02/11/2019 4:37 AM CDT [facility] eGFR by MDRD >60 mL/min/1.7 3m2 02/11/2019 4:37 AM CDT [facility] Blood BLOOD SPECIMEN / Unknown Lab Venipuncture / Unknown 02/11/2019 2:42 AM CDT 02/11/2019 3:51 AM CDT Blaire Meek MD LAB - CHEMISTRY ROYCE KLINE [facility] [address], [place] [id number] * (ABNORMAL) CBC W AUTO DIFFERENTIAL (02/11/2019 2:42 AM CDT) WBC 10.3 4.4 - 10.7 x10E9/L 02/11/2019 4:01 AM [facility] WBC Corrected 02/11/2019 4:01 AM [facility] RBC 2.87(L) 3.80 - 5.40 x10E12/L 02/11/2019 4:01 AM [facility] Hemoglobin 8.0(L) 12.0 - 17.6 gm/dL 02/11/2019 4:01 AM [facility] Hematocrit 26.4(L) 35.2 - 51.7 % 02/11/2019 4:01 AM [facility] MCV 92.0 80.7 - 98.3 fl 02/11/2019 4:01 AM [facility] MCH 27.9 26.7 - 34.0 pg 02/11/2019 4:01 AM [facility] MCHC 30.3(L) 30.8 - 35.9 gm/dL 02/11/2019 4:01 AM [facility] Platelet Count 277 153 - 416 x10E9/L 02/11/2019 4:01 AM [facility] RDW-CV 16.2(H) 12.1 - 14.9 % 02/11/2019 4:01 AM [facility] MPV 11.7 9.4 - 12.9 fl 02/11/2019 4:01 AM [facility] Neutrophils % 74.0(H) 44.0 - 73.0 % 02/11/2019 4:01 AM [facility] Lymphocytes % 7.8(L) 20.0 - 43.0 % 02/11/2019 4:01 AM [facility] Monocytes % 10.2 5.0 - 13.0 % 02/11/2019 4:01 AM [facility] Eosinophils % 5.3 0.0 - 6.0 % 02/11/2019 4:01 AM [facility] Basophils % 0.4 0.0 - 2.0 % 02/11/2019 4:01 AM [facility] Immature Granulocytes 2.3(H) 0 - 1 % 02/11/2019 4:01 AM [facility] Neutrophil Absolute 7.63(H) 2.01 - 7.14 x10E9/L 02/11/2019 4:01 AM [facility] Lymphocytes Absolute 0.81(L) 1.07 - 3.94 x10E9/L 02/11/2019 4:01 AM CDT [facility] Monocytes Absolute 1.05 0.26 - 1.07 x10E9/L 02/11/2019 4:01 AM CDT [facility] Eosinophils Absolute 0.55(H) 0 - 0.47 x10E9/L 02/11/2019 4:01 AM CDT [facility] Basophils Absolute 0.04 0 - 0.08 x10E9/L 02/11/2019 4:01 AM CDT [facility] Immature Granulocytes Absolute 0.24(H) 0.00 - 0.06 x10E9/L 02/11/2019 4:01 AM CDT [facility] nRBC Auto 0 /100 WBC 02/11/2019 4:01 AM [facility] Blood BLOOD SPECIMEN / Unknown Lab Venipuncture / Unknown 02/11/2019 2:42 AM CDT 02/11/2019 3:51 AM CDT Blaire Meek MD LAB - HEMATOLOGY ORD ERABLES [facility] [address] [place] [address] * (ABNORMAL) BASIC METABOLIC PANEL (CALCIUM TOTAL) (02/10/2019 3:18 AM CDT) Glucose 108(H) 74 - 106 mg/dL 02/10/2019 5:04 AM [facility] Sodium 139 136 - 145 mmol/L 02/10/2019 5:04 AM CDT [facility] Potassium 3.8 3.5 - 5.1 mmol/L 02/10/2019 5:04 AM [facility] Chloride 105 98 - 107 mmol/L 02/10/2019 5:04 AM CDT [facility] CO2 26 23 - 31 mmol/L 02/[facility]2019 [facility] Calcium 9.0 8.4 - 10.2 mg/dL 02/10/2019 5:04 AM [facility] Anion Gap 8 8 - 16 mmol/L 02/10/2019 5:04 AM CDT [facility] BUN 20 8.4 - 25.7 mg/dL 02/10/2019 5:04 AM CDT [facility] Creatinine 1.16 0.73 - 1.18 mg/dL 02/10/2019 5:04 AM CDT [facility] eGFR by MDRD >60 mL/min/1.7 3m2 02/10/2019 5:04 AM CDT [facility] eGFR by MDRD >60 mL/min/1.7 3m2 02/10/2019 5:04 AM CDT [facility] Blood BLOOD SPECIMEN / Unknown Lab Venipuncture / Unknown 02/10/2019 3:18 AM CDT 02/10/2019 4:24 AM CDT Blaire Meek MD LAB - CHEMISTRY ROYCE KLINE [facility] Organization Address City/State/ZIP Co de Phone Number [facility] [address], [place] [phone] * (ABNORMAL) CBC W AUTO DIFFERENTIAL (02/10/2019 3:18 AM CDT) WBC 10.1 4.4 - 10.7 x10E9/L 02/10/2019 4:37 AM CDT [facility] WBC Corrected 02/10/2019 4:37 AM CDT [facility] RBC 2.85(L) 3.80 - 5.40 x10E12/L 02/10/2019 4:37 AM CDT [facility] Hemoglobin 7.9(L) 12.0 - 17.6 gm/dL 02/10/2019 4:37 AM CDT [facility] Hematocrit 26.1(L) 35.2 - 51.7 % 02/10/2019 4:37 AM CDT [facility] MCV 91.6 80.7 - 98.3 fl 02/10/2019 4:37 AM CDT [facility] MCH 27.7 26.7 - 34.0 pg 02/10/2019 4:37 AM CDT [facility] MCHC 30.3(L) 30.8 - 35.9 gm/dL 02/10/2019 4:37 AM CDT [facility] Platelet Count 260 153 - 416 x10E9/L 02/10/2019 4:37 AM CDT [facility] RDW-CV 16.2(H) 12.1 - 14.9 % 02/10/2019 4:37 AM CDT [facility] MPV 11.9 9.4 - 12.9 fl 02/10/2019 4:37 AM CDT [facility] Neutrophils % 76.6(H) 44.0 - 73.0 % 02/10/2019 4:37 AM [facility] Lymphocytes % 7.6(L) 20.0 - 43.0 % 02/10/2019 4:37 AM [facility] Monocytes % 10.5 5.0 - 13.0 % 02/10/2019 4:37 AM T [facility] Eosinophils % 3.3 0.0 - 6.0 % 02/10/2019 4:37 AM T [facility] Basophils % 0.5 0.0 - 2.0 % 02/10/2019 4:37 AM [facility] Immature Granulocytes 1.5(H) 0 - 1 % 02/10/2019 4:37 AM [facility] Neutrophil Absolute 7.77(H) 2.01 - 7.14 x10E9/L 02/10/2019 4:37 AM [facility] Lymphocytes Absolute 0.77(L) 1.07 - 3.94 x10E9/L 02/10/2019 4:37 AM T [facility] Monocytes Absolute 1.06 0.26 - 1.07 x10E9/L 02/10/2019 4:37 AM [facility] Eosinophils Absolute 0.33 0 - 0.47 x10E9/L 02/10/2019 4:37 AM [facility] Basophils Absolute 0.05 0 - 0.08 x10E9/L 02/10/2019 4:37 AM [facility] Immature Granulocytes Absolute 0.15(H) 0.00 - 0.06 x10E9/L 02/10/2019 4:37 AM [facility] nRBC Auto 0 /100 WBC 02/10/2019 4:37 AM [facility] Blood BLOOD SPECIMEN / Unknown Lab Venipuncture / Unknown 02/10/2019 3:18 AM CDT 02/10/2019 4:24 AM CDT Blaire Meek MD LAB - HEMATOLOGY ORD ERABLES [facility] [address] [place] [address] * (ABNORMAL) BASIC METABOLIC PANEL (CALCIUM TOTAL) (02/09/2019 2:30 AM CDT) Glucose 119(H) 74 - 106 mg/dL 02/09/2019 3:04 AM CDT [facility] Sodium 137 136 - 145 mmol/L 02/09/2019 3:04 AM CDT [facility] Potassium 4.3 3.5 - 5.1 mmol/L 02/09/2019 3:04 AM T [facility] Chloride 102 98 - 107 mmol/L 02/09/2019 3:04 AM CDT [facility] CO2 25 23 - 31 mmol/L 02/09/2019 3:04 AM T [facility] Calcium 8.9 8.4 - 10.2 mg/dL 02/09/2019 3:04 AM T [facility] Anion Gap 10 8 - 16 mmol/L 02/09/2019 3:04 AM T [facility] BUN 20 8.4 - 25.7 mg/dL 02/09/2019 3:04 AM T [facility] Creatinine 1.23(H) 0.73 - 1.18 mg/dL 02/09/2019 3:04 AM T [facility] eGFR by MDRD 58 mL/min/1.7 3m2 02/09/2019 3:04 AM T [facility] eGFR by MDRD >60 mL/min/1.7 3m2 02/09/2019 3:04 AM T [facility] Blood BLOOD SPECIMEN / Unknown Lab Venipuncture / Unknown 02/09/2019 2:30 AM CDT 02/09/2019 2:46 AM CDT Blaire Meek MD LAB - CHEMISTRY ROYCE KLINE [facility] Organization Address City/State/ZIP Co de Phone Number [facility] [address] [place] [address] * (ABNORMAL) CBC W AUTO DIFFERENTIAL (02/09/2019 2:30 AM CDT) WBC 11.7(H) 4.4 - 10.7 x10E9/L 02/09/2019 2:50 AM CDT [facility] WBC Corrected 02/09/2019 2:50 AM CDT [facility] RBC 2.97(L) 3.80 - 5.40 x10E12/L 02/09/2019 2:50 AM CDT [facility] Hemoglobin 8.3(L) 12.0 - 17.6 gm/dL 02/09/2019 2:50 AM CDT [facility] Hematocrit 27.5(L) 35.2 - 51.7 % 02/09/2019 2:50 AM CDT [facility] MCV 92.6 80.7 - 98.3 fl 02/09/2019 2:50 AM CDT [facility] MCH 27.9 26.7 - 34.0 pg 02/09/2019 2:50 AM CDT [facility] MCHC 30.2(L) 30.8 - 35.9 gm/dL 02/09/2019 2:50 AM CDT [facility] Platelet Count 282 153 - 416 x10E9/L 02/09/2019 2:50 AM CDT [facility] RDW-CV 15.7(H) 12.1 - 14.9 % 02/09/2019 2:50 AM CDT [facility] MPV 11.2 9.4 - 12.9 fl 02/09/2019 2:50 AM CDT [facility] Neutrophils % 85.8(H) 44.0 - 73.0 % 02/09/2019 2:50 AM CDT [facility] Lymphocytes % 4.8(L) 20.0 - 43.0 % 02/09/2019 2:50 AM CDT [facility] Monocytes % 8.2 5.0 - 13.0 % 02/09/2019 2:50 AM CDT [facility] Eosinophils % 0.1 0.0 - 6.0 % 02/09/2019 2:50 AM CDT [facility] Basophils % 0.2 0.0 - 2.0 % 02/09/2019 2:50 AM CDT [facility] Immature Granulocytes 0.9 0 - 1 % 02/09/2019 2:50 AM CDT [facility] Neutrophil Absolute 10.01(H) 2.01 - 7.14 x10E9/L 02/09/2019 2:50 AM CDT [facility] Lymphocytes Absolute 0.56(L) 1.07 - 3.94 x10E9/L 02/09/2019 2:50 AM CDT [facility] Monocytes Absolute 0.95 0.26 - 1.07 x10E9/L 02/09/2019 2:50 AM CDT [facility] Eosinophils Absolute 0.01 0 - 0.47 x10E9/L 02/09/2019 2:50 AM CDT [facility] Basophils Absolute 0.02 0 - 0.08 x10E9/L 02/09/2019 2:50 AM CDT [facility] Immature Granulocytes Absolute 0.10(H) 0.00 - 0.06 x10E9/L 02/09/2019 2:50 AM CDT [facility] nRBC Auto 0 /100 WBC 02/09/2019 2:50 AM CDT [facility] Blood BLOOD SPECIMEN / Unknown Lab Venipuncture / Unknown 02/09/2019 2:30 AM CDT 02/09/2019 2:45 AM CDT Blaire Meek MD LAB - HEMATOLOGY ORD ERABLES Performing Organization Address City/[facility] Co de Phone Number [facility] [address] [place] [address] * TYPE + SCREEN PANEL (02/08/2019 8:57 AM CDT) ABO A 02/08/2019 10:09 AM CDT [facility] Rh Type Positive 02/08/2019 10:09 AM CDT [facility] Comment:History checked. Antibody Screen Negative 02/08/2019 10:09 AM CDT [facility] Blood Bank BLOOD SPECIMEN / Unknown Lab Venipuncture / Unknown 02/08/2019 8:57 AM CDT 02/08/2019 9:40 AM CDT Alberto Shell MD LAB - BLOOD BA NK ORDERABLES Performing Organization Address City/[facility] Co de Phone Number [facility] [address] [phone] * (ABNORMAL) BASIC METABOLIC PANEL (CALCIUM TOTAL) (02/08/2019 2:56 AM CDT) Pathologist [facility] Glucose 90 74 - 106 mg/dL 02/08/2019 4:44 AM CDT [facility] Sodium 137 136 - 145 mmol/L 02/08/2019 4:44 AM CDT [facility] Potassium 3.8 3.5 - 5.1 mmol/L 02/08/2019 4:44 AM CDT [facility] Chloride 103 98 - 107 mmol/L 02/08/2019 4:44 AM CDT [facility] CO2 27 23 - 31 mmol/L 02/08/2019 4:44 AM CDT [facility] Calcium 9.3 8.4 - 10.2 mg/dL 02/08/2019 4:44 AM CDT [facility] Anion Gap 7(L) 8 - 16 mmol/L 02/08/2019 4:44 AM CDT [facility] BUN 20 8.4 - 25.7 mg/dL 02/08/2019 4:44 AM CDT [facility] Creatinine 1.17 0.73 - 1.18 mg/dL 02/08/2019 4:44 AM CDT [facility] eGFR by MDRD >60 mL/min/1.7 3m2 02/08/2019 4:44 AM CDT [facility] eGFR by MDRD >60 mL/min/1.7 3m2 02/08/2019 4:44 AM CDT [facility] Blood BLOOD SPECIMEN / Unknown Lab Venipuncture / Unknown 02/08/2019 2:56 AM CDT 02/08/2019 3:55 AM CDT Blaire Meek MD LAB - CHEMISTRY ROYCE KLINE [facility] Organization Address City/State/ZIP Co de Phone Number [facility] [address] [place], [place] [phone] * (ABNORMAL) CBC W AUTO DIFFERENTIAL (02/08/2019 2:56 AM CDT) Pathologist [facility] WBC 8.9 4.4 - 10.7 x10E9/L 02/08/2019 4:17 AM CDT [facility] WBC Corrected 02/08/2019 4:17 AM CDT [facility] RBC 3.35(L) 3.80 - 5.40 x10E12/L 02/08/2019 4:17 AM CDT [facility] Hemoglobin 8.9(L) 12.0 - 17.6 gm/dL 02/08/2019 4:17 AM CDT [facility] Hematocrit 30.8(L) 35.2 - 51.7 % 02/08/2019 4:17 AM CDT [facility] MCV 91.9 80.7 - 98.3 fl 02/08/2019 4:17 AM CDT [facility] MCH 26.6(L) 26.7 - 34.0 pg 02/08/2019 4:17 AM CDT [facility] MCHC 28.9(L) 30.8 - 35.9 gm/dL 02/08/2019 4:17 AM CDT [facility] Platelet Count 241 153 - 416 x10E9/L 02/08/2019 4:17 AM [facility] RDW-CV 15.6(H) 12.1 - 14.9 % 02/08/2019 4:17 AM [facility] MPV 12.1 9.4 - 12.9 fl 02/08/2019 4:17 AM [facility] Neutrophils % 73.2(H) 44.0 - 73.0 % 02/08/2019 4:17 AM [facility] Lymphocytes % 7.9(L) 20.0 - 43.0 % 02/08/2019 4:17 AM T [facility] Monocytes % 10.6 5.0 - 13.0 % 02/08/2019 4:17 AM T [facility] Eosinophils % 6.7(H) 0.0 - 6.0 % 02/08/2019 4:17 AM [facility] Basophils % 0.7 0.0 - 2.0 % 02/08/2019 4:17 AM T [facility] Immature Granulocytes 0.9 0 - 1 % 02/08/2019 4:17 AM CDT [facility] Neutrophil Absolute 6.49 2.01 - 7.14 x10E9/L 02/08/2019 4:17 AM CDT [facility] Lymphocytes Absolute 0.70(L) 1.07 - 3.94 x10E9/L 02/08/2019 4:17 AM T [facility] Monocytes Absolute 0.94 0.26 - 1.07 x10E9/L 02/08/2019 4:17 AM CDT [facility] Eosinophils Absolute 0.59(H) 0 - 0.47 x10E9/L 02/08/2019 4:17 AM CDT [facility] Basophils Absolute 0.06 0 - 0.08 x10E9/L 02/08/2019 4:17 AM CDT [facility] Immature Granulocytes Absolute 0.08(H) 0.00 - 0.06 x10E9/L 02/08/2019 4:17 AM CDT [facility] nRBC Auto 0 /100 WBC 02/08/2019 4:17 AM CDT [facility] Blood BLOOD SPECIMEN / Unknown Lab Venipuncture / Unknown 02/08/2019 2:56 AM CDT 02/08/2019 3:55 AM CDT Blaire Meek MD LAB - HEMATOLOGY ORD ERABLES Performing Organization Address City/[facility]/ZIP Co de Phone Number [facility] [address] [place] [id number] * SLIDE SCAN HEMATOLOGY (02/07/2019 4:09 AM CDT) Pathologist [facility] Platelet Estimation Adequate platelets Normal, Adequate platelets 02/07/2019 6:45 AM CDT [facility] Comment:Platelet clumping no jordan upon slide review Blood BLOOD SPECIMEN / Unknown Lab Venipuncture / Unknown 02/07/2019 4:09 AM CDT 02/07/2019 5:15 AM CDT Michelle Pratt MD LAB - HEMATOLOGY OR DERABLES [facility] [address] [place] [phone] * (ABNORMAL) CBC W AUTO DIFFERENTIAL (02/07/2019 4:09 AM CDT) Pathologist [facility] WBC 10.0 4.4 - 10.7 x10E9/L 02/07/2019 5:59 AM CDT [facility] WBC Corrected 02/07/2019 5:59 AM CDT [facility] RBC 2.96(L) 3.80 - 5.40 x10E12/L 02/07/2019 5:59 AM CDT [facility] Hemoglobin 8.0(L) 12.0 - 17.6 gm/dL 02/07/2019 5:59 AM CDT [facility] Hematocrit 27.5(L) 35.2 - 51.7 % 02/07/2019 5:59 AM CDT [facility] MCV 92.9 80.7 - 98.3 fl 02/07/2019 5:59 AM CDT [facility] MCH 27.0 26.7 - 34.0 pg 02/07/2019 5:59 AM CDT [facility] MCHC 29.1(L) 30.8 - 35.9 gm/dL 02/07/2019 5:59 AM CDT [facility] Platelet Count 176 153 - 416 x10E9/L [facility] R[facility]-CV 15.7(H) 12.1 - 14.9 % 02/07/2019 5:59 AM CDT [facility] MPV 13.1(H) 9.4 - 12.9 fl 02/07/2019 5:59 AM [facility] Neutrophils % 79.4(H) 44.0 - 73.0 % 02/07/2019 5:59 AM T [facility] Lymphocytes % 5.0(L) 20.0 - 43.0 % 02/07/2019 5:59 AM CDT [facility] Monocytes % 8.6 5.0 - 13.0 % 02/07/2019 5:59 AM T [facility] Eosinophils % 5.7 0.0 - 6.0 % 02/07/2019 5:59 AM [facility] Basophils % 0.6 0.0 - 2.0 % 02/07/2019 5:59 AM CDT [facility] Immature Granulocytes 0.7 0 - 1 % 02/07/2019 5:59 AM [facility] Neutrophil Absolute 7.97(H) 2.01 - 7.14 x10E9/L 02/07/2019 5:59 AM CDT [facility] Lymphocytes Absolute 0.50(L) 1.07 - 3.94 x10E9/L 02/07/2019 5:59 AM CDT [facility] Monocytes Absolute 0.86 0.26 - 1.07 x10E9/L 02/07/2019 5:59 AM CDT [facility] Eosinophils Absolute 0.57(H) 0 - 0.47 x10E9/L 02/07/2019 5:59 AM CDT [facility] Basophils Absolute 0.06 0 - 0.08 x10E9/L 02/07/2019 5:59 AM CDT [facility] Immature Granulocytes Absolute 0.07(H) 0.00 - 0.06 x10E9/L 02/07/2019 5:59 AM CDT [facility] nRBC Auto 0 /100 WBC 02/07/2019 5:59 AM CDT [facility] Blood BLOOD SPECIMEN / Unknown Lab Venipuncture / Unknown 02/07/2019 4:09 AM CDT 02/07/2019 5:15 AM CDT Michelle Pratt MD LAB - HEMATOLOGY OR DERABLES [facility] [address] [place] [address] * (ABNORMAL) BASIC METABOLIC PANEL (CALCIUM TOTAL) (02/07/2019 4:09 AM CDT) Glucose 92 74 - 106 mg/dL 02/07/2019 6:13 AM [facility] Sodium 135(L) 136 - 145 mmol/L 02/07/2019 6:13 AM T [facility] Potassium 4.3 3.5 - 5.1 mmol/L 02/07/2019 6:13 AM [facility] Chloride 104 98 - 107 mmol/L 02/07/2019 6:13 AM [facility] CO2 23 23 - 31 mmol/L 02/07/2019 6:13 AM T [facility] Calcium 9.0 8.4 - 10.2 mg/dL 02/07/2019 6:13 AM T [facility] Anion Gap 8 8 - 16 mmol/L 02/07/2019 6:13 AM CDT [facility] BUN 17 8.4 - 25.7 mg/dL 02/07/2019 6:13 AM T [facility] Creatinine 1.20(H) 0.73 - 1.18 mg/dL 02/07/2019 6:13 AM CDT [facility] eGFR by MDRD 60 mL/min/1.7 3m2 02/07/2019 6:13 AM CDT [facility] eGFR by MDRD >60 mL/min/1.7 3m2 02/07/2019 6:13 AM CDT [facility] Blood BLOOD SPECIMEN / Unknown Lab Venipuncture / Unknown 02/07/2019 4:09 AM CDT 02/07/2019 5:15 AM CDT Michelle Pratt MD LAB - CHEMISTRY RAFFY SNOWDEN Performing Organization Address [facility]/ZIP Co de Phone Number [facility] [address] [place] [phone] * VANCOMYCIN LEVEL RANDOM (02/07/2019 4:09 AM CDT) Pathologist [facility] Vancomycin Random 20.9 ug/mL 02/07/2019 6:27 AM CDT [facility] Blood BLOOD SPECIMEN / Unknown Lab Venipuncture / Unknown 02/07/2019 4:09 AM CDT 02/07/2019 5:15 AM CDT Narrative [facility] - 02/07/2019 6:27 AM CDT No reference range available for random Vancomycin levels. All results interpreted by ordering physician. Yasmany Oh MD LAB - CHEMISTRY ROYCE KLINE Performing Organization Address [facility] Co de Phone Number [facility] [address] [place] [phone] * (ABNORMAL) CBC W AUTO DIFFERENTIAL (02/06/2019 4:19 AM CDT) WBC 9.1 4.4 - 10.7 x10E9/L 02/06/2019 4:53 AM CDT [facility] WBC Corrected 02/06/2019 4:53 AM CDT [facility] RBC 2.94(L) 3.80 - 5.40 x10E12/L 02/06/2019 4:53 AM CDT [facility] Hemoglobin 7.9(L) 12.0 - 17.6 gm/dL 02/06/2019 4:53 AM CDT [facility] Hematocrit 27.5(L) 35.2 - 51.7 % 02/06/2019 4:53 AM CDT [facility] MCV 93.5 80.7 - 98.3 fl 02/06/2019 4:53 AM CDT [facility] MCH 26.9 26.7 - 34.0 pg 02/06/2019 4:53 AM CDT [facility] MCHC 28.7(L) 30.8 - 35.9 gm/dL 02/06/2019 4:53 AM [facility] Platelet Count 189 153 - 416 x10E9/L 02/06/2019 4:53 AM [facility] RDW-CV 15.8(H) 12.1 - 14.9 % 02/06/2019 4:53 AM [facility] MPV 12.1 9.4 - 12.9 fl 02/06/2019 4:53 AM [facility] Neutrophils % 73.8(H) 44.0 - 73.0 % 02/06/2019 4:53 AM [facility] Lymphocytes % 5.9(L) 20.0 - 43.0 % 02/06/2019 4:53 AM [facility] Monocytes % 10.9 5.0 - 13.0 % 02/06/2019 4:53 AM [facility] Eosinophils % 8.2(H) 0.0 - 6.0 % 02/06/2019 4:53 AM [facility] Basophils % 0.4 0.0 - 2.0 % 02/06/2019 4:53 AM [facility] Immature Granulocytes 0.8 0 - 1 % 02/06/2019 4:53 AM [facility] Neutrophil Absolute 6.68 2.01 - 7.14 x10E9/L 02/06/2019 4:53 AM [facility] Lymphocytes Absolute 0.53(L) 1.07 - 3.94 x10E9/L 02/06/2019 4:53 AM [facility] Monocytes Absolute 0.99 0.26 - 1.07 x10E9/L 02/06/2019 4:53 AM T [facility] Eosinophils Absolute 0.74(H) 0 - 0.47 x10E9/L 02/06/2019 4:53 AM T [facility] Basophils Absolute 0.04 0 - 0.08 x10E9/L 02/06/2019 4:53 AM T [facility] Immature Granulocytes Absolute 0.07(H) 0.00 - 0.06 x10E9/L 02/06/2019 4:53 AM CDT [facility] nRBC Auto 0 /100 WBC 02/06/2019 4:53 AM CDT [facility] Blood BLOOD SPECIMEN / Unknown Lab Venipuncture / Unknown 02/06/2019 4:19 AM CDT 02/06/2019 4:42 AM CDT Michelle Pratt MD LAB - HEMATOLOGY OR DERABLES [facility] [address] [place] [address] * (ABNORMAL) BASIC METABOLIC PANEL (CALCIUM TOTAL) (02/06/2019 4:19 AM CDT) Glucose 110(H) 74 - 106 mg/dL 02/06/2019 5:24 AM [facility] Sodium 136 136 - 145 mmol/L 02/06/2019 5:24 AM [facility] Potassium 4.7 3.5 - 5.1 mmol/L 02/06/2019 5:24 AM [facility] Chloride 106 98 - 107 mmol/L 02/06/2019 5:24 AM CDT [facility] CO2 23 23 - 31 mmol/L 02/06/2019 5:24 AM [facility] Calcium 8.8 8.4 - 10.2 mg/dL 02/06/2019 5:24 AM [facility] Anion Gap 7(L) 8 - 16 mmol/L 02/06/2019 5:24 AM [facility] BUN 17 8.4 - 25.7 mg/dL 02/06/2019 5:24 AM [facility] Creatinine 1.23(H) 0.73 - 1.18 mg/dL 02/06/2019 5:24 AM [facility] eGFR by MDRD 58 mL/min/1.7 3m2 02/06/2019 5:24 AM [facility] eGFR by MDRD >60 mL/min/1.7 3m2 02/06/2019 5:24 AM CDT [facility] Blood BLOOD SPECIMEN / Unknown Lab Venipuncture / Unknown 02/06/2019 4:19 AM CDT 02/06/2019 4:41 AM CDT Michelle Pratt MD LAB - CHEMISTRY ORD ERABLES Performing Organization Address [facility] Co de Phone Number [facility] [address] [place] [phone] * VANCOMYCIN LEVEL RANDOM (02/06/2019 4:19 AM CDT) [facility] Vancomycin Random 19.2 ug/mL 02/06/2019 5:26 AM CDT [facility] Blood BLOOD SPECIMEN / Unknown Lab Venipuncture / Unknown 02/06/2019 4:19 AM CDT 02/06/2019 4:41 AM CDT Narrative [facility] - 02/06/2019 5:26 AM CDT No reference range available for random Vancomycin levels. All results interpreted by ordering physician. Michelle Pratt MD LAB - CHEMISTRY ORD ERABLES Performing Organization Address [facility] Co de Phone Number [facility] [address] [place] [phone] * (ABNORMAL) CBC W AUTO DIFFERENTIAL (02/05/2019 2:38 AM CDT) [facility] WBC 10.6 4.4 - 10.7 x10E9/L 02/05/2019 3:27 AM CDT [facility] WBC Corrected 02/05/2019 3:27 AM CDT [facility] RBC 3.08(L) 3.80 - 5.40 x10E12/L 02/05/2019 3:27 AM CDT [facility] Hemoglobin 8.5(L) 12.0 - 17.6 gm/dL 02/05/2019 3:27 AM CDT [facility] Hematocrit 27.9(L) 35.2 - 51.7 % 02/05/2019 3:27 AM CDT [facility] MCV 90.6 80.7 - 98.3 fl 02/05/2019 3:27 AM CDT [facility] MCH 27.6 26.7 - 34.0 pg 02/05/2019 3:27 AM CDT [facility] MCHC 30.5(L) 30.8 - 35.9 gm/dL 02/05/2019 3:27 AM [facility] Platelet Count 220 153 - 416 x10E9/L 02/05/2019 3:27 AM [facility] RDW-CV 15.9(H) 12.1 - 14.9 % 02/05/2019 3:27 AM [facility] MPV 12.0 9.4 - 12.9 fl 02/05/2019 3:27 AM [facility] Neutrophils % 75.3(H) 44.0 - 73.0 % 02/05/2019 3:27 AM [facility] Lymphocytes % 5.2(L) 20.0 - 43.0 % 02/05/2019 3:27 AM [facility] Monocytes % 10.2 5.0 - 13.0 % 02/05/2019 3:27 AM [facility] Eosinophils % 8.5(H) 0.0 - 6.0 % 02/05/2019 3:27 AM [facility] Basophils % 0.2 0.0 - 2.0 % 02/05/2019 3:27 AM [facility] Immature Granulocytes 0.6 0 - 1 % 02/05/2019 3:27 AM [facility] Neutrophil Absolute 7.96(H) 2.01 - 7.14 x10E9/L 02/05/2019 3:27 AM [facility] Lymphocytes Absolute 0.55(L) 1.07 - 3.94 x10E9/L 02/05/2019 3:27 AM [facility] Monocytes Absolute 1.08(H) 0.26 - 1.07 x10E9/L 02/05/2019 3:27 AM [facility] Eosinophils Absolute 0.90(H) 0 - 0.47 x10E9/L 02/05/2019 3:27 AM [facility] Basophils Absolute 0.02 0 - 0.08 x10E9/L 02/05/2019 3:27 AM [facility] Immature Granulocytes Absolute 0.06 0.00 - 0.06 x10E9/L 02/05/2019 3:27 AM [facility] nRBC Auto 0 /100 WBC 02/05/2019 3:27 AM [facility] Blood BLOOD SPECIMEN / Unknown Lab Venipuncture / Unknown 02/05/2019 2:38 AM CDT 02/05/2019 3:14 AM CDT Michelle Pratt MD LAB - HEMATOLOGY OR DERABLES Performing Organization Address [facility]/ZIP Co de Phone Number [facility] [address] [phone] * (ABNORMAL) BASIC METABOLIC PANEL (CALCIUM TOTAL) (02/05/2019 2:38 AM CDT) [facility] Glucose 118(H) 74 - 106 mg/dL 02/05/2019 3:41 AM CDT [facility] Sodium 136 136 - 145 mmol/L 02/05/2019 3:41 AM CDT [facility] Potassium 4.2 3.5 - 5.1 mmol/L 02/05/2019 3:41 AM CDT [facility] Chloride 107 98 - 107 mmol/L 02/05/2019 3:41 AM CDT [facility] CO2 22(L) 23 - 31 mmol/L 02/05/2019 3:41 AM CDT [facility] Calcium 8.6 8.4 - 10.2 mg/dL 02/05/2019 3:41 AM CDT [facility] Anion Gap 7(L) 8 - 16 mmol/L 02/05/2019 3:41 AM CDT [facility] BUN 20 8.4 - 25.7 mg/dL 02/05/2019 3:41 AM CDT [facility] Creatinine 1.24(H) 0.73 - 1.18 mg/dL 02/05/2019 3:41 AM CDT [facility] eGFR by MDRD 58 mL/min/1.7 3m2 02/05/2019 3:41 AM CDT [facility] eGFR by MDRD >60 mL/min/1.7 3m2 02/05/2019 3:41 AM CDT [facility] Blood BLOOD SPECIMEN / Unknown Lab Venipuncture / Unknown 02/05/2019 2:38 AM CDT 02/05/2019 3:14 AM CDT Michelle Pratt MD LAB - CHEMISTRY ORD ERABLES [facility] [address] [place] [phone] * VANCOMYCIN LEVEL RANDOM (02/05/2019 2:38 AM CDT) [facility] Vancomycin Random 21.8 ug/mL 02/05/2019 3:47 AM CDT [facility] Blood BLOOD SPECIMEN / Unknown Lab Venipuncture / Unknown 02/05/2019 2:38 AM CDT 02/05/2019 3:14 AM CDT Narrative [facility] - 02/05/2019 3:47 AM CDT No reference range available for random Vancomycin levels. All results interpreted by ordering physician. Yasmany Oh MD LAB - CHEMISTRY ROYCE KLINE Performing Organization Address [facility] Co de Phone Number [facility] [address] [place] [phone] * GLUCOSE - POINT OF CARE (02/04/2019 5:16 PM CDT) [facility] Glucose WB/POC 101 70 - 106 mg/dL 02/05/2019 7:00 AM CDT [facility] Specimen Type Arterial/C apillary 02/05/2019 7:00 AM CDT [facility] Blood BLOOD SPECIMEN / Unknown 02/04/2019 5:16 PM CDT 02/05/2019 6:59 AM CDT Michelle Pratt MD LAB - POINT OF CARE ORDERABLES Performing Organization Address [facility] Co de Phone Number [facility] [address] [place] [phone] * (ABNORMAL) VANCOMYCIN LEVEL TROUGH (02/04/2019 2:12 PM CDT) [facility] Vancomycin Trough 28.6(HH) 10.0 - 20.0 ug/mL 02/04/2019 2:35 PM CDT [facility] Blood BLOOD SPECIMEN / Unknown Lab Venipuncture / Unknown 02/04/2019 2:12 PM CDT 02/04/2019 2:16 PM CDT Yasmany Oh MD LAB - CHEMISTRY ORDMarj KLINE Performing Organization Address City/[facility]/ZIP Co de Phone Number [facility] [address] [place] [address] * (ABNORMAL) GLUCOSE - POINT OF CARE (02/04/2019 12:09 PM CDT) Glucose WB/POC 111(H) 70 - 106 mg/dL 02/04/2019 2:47 PM CDT [facility] Specimen Type Arterial/C apillary 02/04/2019 2:47 PM CDT [facility] Blood BLOOD SPECIMEN / Unknown 02/04/2019 12:09 PM CDT 02/04/2019 2:46 PM CDT Michelle Pratt MD LAB - POINT OF CARE ORDERABLES Performing Organization Address [facility] Co de Phone Number [facility] [address] [place] [address] * (ABNORMAL) CULTURE WOUND+GRAM STAIN (02/04/2019 11:29 AM CDT) Culture Rare Staphylococcus aureus methicillin-resistan t (MRSA)(A) UMESH 02/06/2019 11:57 AM CDT [facility] Gram Stain Heavy Polymorphonuclear cells 02/06/2019 11:57 AM CDT [facility] Gram Stain Moderate Red blood cells 02/06/2019 11:57 AM CDT [facility] Gram Stain No organisms seen 019 11:57 AM CDT [facility] Microbiology [place] / Unknown Collection / Unknown 02/04/2019 11:29 AM CDT 02/04/2019 12:01 PM CDT Narrative [facility] - 02/06/2019 11:57 AM CDT [...] LAB - MICROBIOLOGY ORDERABLES Performing Organization Address City/[facility]/ZIP Co de Phone Number [facility] [address] [place] [address], [facility] [phone] * CULTURE ANAEROBE (02/04/2019 11:29 AM CDT) Culture No anaerobic organisms isolated UMESH 02/09/2019 11:40 AM CDT [facility] Microbiology [place] / Unknown Collection / Unknown 02/04/2019 11:29 AM CDT 02/04/2019 12:08 PM CDT Narrative [facility] - 02/09/2019 11:40 AM CDT Surgical Description: Right Hip Larry Alexander MD LAB - MICROBIOLOGY ORDERABLES [facility] [address] [place] [address], [facility] [phone] * (ABNORMAL) CULTURE TISSUE+GRAM STAIN (02/04/2019 11:29 AM CDT) Culture Rare Staphylococcus aureus methicillin-resistan t (MRSA)(AA) UMESH 02/06/2019 11:37 AM CDT [facility] Gram Stain Moderate Polymorphonuclear cells 02/06/2019 11:37 AM CDT [facility] Gram Stain Heavy Red blood cells 02/06/2019 11:37 AM T [facility] Gram Stain No organisms seen 019 11:37 AM T [facility] Microbiology [place] / Unknown Collection / Unknown 02/04/2019 11:29 AM CDT 02/04/2019 12:08 PM CDT Narrative [facility] - 02/06/2019 11:37 AM CDT [...] Larry Alexander MD LAB - MICROBIOLOGY ORDERABLES [facility] [address] [place] [address], [facility] [phone] * CULTURE ANAEROBE (02/04/2019 11:29 AM CDT) Culture No anaerobic organisms isolated UMESH 02/09/2019 11:40 AM T [facility] Microbiology [place] / Unknown Collection / Unknown 02/04/2019 11:29 AM CDT 02/04/2019 12:08 PM CDT Narrative [facility] - 02/09/2019 11:40 AM CDT Surgical Description: Right Hip Larry Alexander MD LAB - MICROBIOLOGY ORDERABLES Performing Organization Address City/[facility]/ZIP Co de Phone Number [facility] [address] [phone] * GLUCOSE - POINT OF CARE (02/04/2019 8:17 AM CDT) Glucose WB/POC 101 70 - 106 mg/dL 02/04/2019 8:48 AM CDT [facility] Specimen Type Arterial/C apillary 02/04/2019 8:48 AM CDT [facility] Blood BLOOD SPECIMEN / Unknown 02/04/2019 8:17 AM CDT 02/04/2019 8:48 AM CDT Michelle Pratt MD LAB - POINT OF CARE ORDERABLES Performing Organization Address City/[facility]/ZIP Co de Phone Number [facility] [address] [place] [address] * PT PTT PANEL (02/04/2019 7:37 AM CDT) PT 11.1 9.5 - 11.6 sec 02/04/2019 9:12 AM CDT [facility] INR 1.0 0.9 - 1.1 02/04/2019 9:12 AM CDT [facility] PTT 26.4 21.0 - 32.0 sec 02/04/2019 9:12 AM CDT [facility] Blood BLOOD SPECIMEN / Unknown 02/04/2019 7:37 AM CDT 02/04/2019 9:03 AM CDT Narrative [facility] - 02/04/2019 9:12 AM CDT Conventional Warfarin Anticoagulant Therapy: INR Reference Range: ??2.0-3.0 Intensive Warfarin Anticoagulant Therapy: INR Reference Range: ? 2.5-3.5 Heparin Therapeutic Range for PTT: 50.5 - 74.3 seconds. Michelle Pratt MD LAB - COAGULATION O RDERABLES Performing Organization Address City/[facility]/ZIP Co de Phone Number [facility] [address] [place], [place] [phone] * (ABNORMAL) CBC W/O DIFFERENTIAL (02/04/2019 7:37 AM CDT) [facility] WBC 10.6 4.4 - 10.7 x10E9/L 02/04/2019 8:35 AM CDT [facility] RBC 3.26(L) 3.80 - 5.40 x10E12/L 02/04/2019 8:35 AM CDT [facility] Hemoglobin 8.7(L) 12.0 - 17.6 gm/dL 02/04/2019 8:35 AM CDT [facility] Hematocrit 30.0(L) 35.2 - 51.7 % 02/04/2019 8:35 AM CDT [facility] MCV 92.0 80.7 - 98.3 fl 02/04/2019 8:35 AM CDT [facility] MCH 26.7 26.7 - 34.0 pg 02/04/2019 8:35 AM CDT [facility] MCHC 29.0(L) 30.8 - 35.9 gm/dL 02/04/2019 8:35 AM CDT [facility] Platelet Count 212 153 - 416 x10E9/L 02/04/2019 8:35 AM CDT [facility] RDW-CV 15.9(H) 12.1 - 14.9 % 02/04/2019 8:35 AM CDT [facility] MPV 11.9 9.4 - 12.9 fl 02/04/2019 8:35 AM CDT [facility] Blood BLOOD SPECIMEN / Unknown Lab Venipuncture / Unknown 02/04/2019 7:37 AM CDT 02/04/2019 8:25 AM CDT Jason Blackburn MD LAB - HEMATOLOGY ORD ERABLES Performing Organization Address [facility]/ZIP Co de Phone Number [facility] [address] [place], [place] [phone] * (ABNORMAL) URINALYSIS REFLEX MICROSCOPIC REFLEX CULTURE (02/04/2019 6:17 AM CDT) Color UA Yellow Straw, Yellow 02/04/2019 6:43 AM T [facility] Clarity UA Cloudy(A) Clear 02/04/2019 6:43 AM CDT [facility] Glucose UA Negative Negative 02/04/2019 6:43 AM [facility] Bilirubin UA Negative Negative 02/04/2019 6:43 AM T [facility] Ketone UA Trace(A) Negative 02/04/2019 6:43 AM T [facility] Specific [place] UA 1.021 1.005 - 1.030 02/04/2019 6:43 AM [facility] Blood UA Negative Negative 02/04/2019 6:43 AM [facility] pH UA 5.0 5.0 - 8.0 pH 02/04/2019 6:43 AM [facility] Protein UA Negative Negative 02/04/2019 6:43 AM [facility] Urobilinogen UA Negative Negative mg/dL 02/04/2019 6:43 AM [facility] Nitrite UA Negative Negative 02/04/2019 6:43 AM [facility] Leukocyte UA Negative Negative 02/04/2019 6:43 AM [facility] Urine Microscopy Urine microscopy not indicated 02/04/2019 6:43 AM [facility] Reflex Status Culture not indicated 02/04/2019 6:43 AM [facility] Urine URINE SPECIMEN OBTAINED BY CLEAN CATCH PROCEDURE / Unknown Collection / Unknown 02/04/2019 6:17 AM CDT 02/04/2019 6:24 AM CDT Narrative [facility] - 02/04/2019 6:43 AM T Ascorbic Acid can cause false negative urine strip tests for blood, glucose, nitrite, and bilirubin. Yasmany Oh MD LAB - URINALYSIS ORD ERABLES [facility] [address] [place] [address] * (ABNORMAL) BASIC METABOLIC PANEL (CALCIUM TOTAL) (02/04/2019 2:34 AM CDT) Glucose 114(H) 74 - 106 mg/dL 02/04/2019 4:13 AM CDT [facility] Sodium 135(L) 136 - 145 mmol/L 02/04/2019 4:13 AM CDT [facility] Potassium 3.7 3.5 - 5.1 mmol/L 02/04/2019 4:13 AM CDT [facility] Chloride 106 98 - 107 mmol/L 02/04/2019 4:13 AM CDT [facility] CO2 21(L) 23 - 31 mmol/L 02/04/2019 4:13 AM CDT [facility] Calcium 8.6 8.4 - 10.2 mg/dL 02/04/2019 4:13 AM CDT [facility] Anion Gap 8 8 - 16 mmol/L 02/04/2019 4:13 AM CDT [facility] BUN 21 8.4 - 25.7 mg/dL 02/04/2019 4:13 AM CDT [facility] Creatinine 1.13 0.73 - 1.18 mg/dL 02/04/2019 4:13 AM CDT [facility] eGFR by MDRD >60 mL/min/1.7 3m2 02/04/2019 4:13 AM CDT [facility] eGFR by MDRD >60 mL/min/1.7 3m2 02/04/2019 4:13 AM CDT [facility] Blood BLOOD SPECIMEN / Unknown Lab Venipuncture / Unknown 02/04/2019 2:34 AM CDT 02/04/2019 3:32 AM CDT Michelle Pratt MD LAB - CHEMISTRY ORD ERABLES [facility] [address] [place] [address] * PRETEST TYPE & SCREEN (02/04/2019 2:34 AM CDT) ABO A 02/04/2019 4:07 AM CDT [facility] Rh Type Positive 02/04/2019 4:07 AM CDT [facility] Comment:History checked. Col lect retype. Antibody Screen Negative 02/04/2019 4:07 AM CDT [facility] Blood Bank BLOOD SPECIMEN / Unknown Lab Venipuncture / Unknown 02/04/2019 2:34 AM CDT 02/04/2019 3:34 AM CDT Jeffrey Angelo MD LAB - BLOOD BANK OR DERABLES Performing Organization Address [facility] Co de Phone Number [facility] [address] [place] [id number] [phone] * (ABNORMAL) GLUCOSE - POINT OF CARE (02/03/2019 8:35 PM CDT) Glucose WB/POC 131(H) 70 - 106 mg/dL 02/03/2019 9:51 PM CDT [facility] Specimen Type Arterial/C apillary 02/03/2019 9:51 PM CDT [facility] Blood BLOOD SPECIMEN / Unknown 02/03/2019 8:35 PM CDT 02/03/2019 9:51 PM CDT Michelle Pratt MD LAB - POINT OF CARE ORDERABLES Performing Organization Address [facility] Co de Phone Number [facility] [address] [place] [address] * (ABNORMAL) GLUCOSE - POINT OF CARE (02/03/2019 5:22 PM CDT) Pathologist [facility] Glucose WB/POC 114(H) 70 - 106 mg/dL 02/03/2019 7:05 PM CDT [facility] Specimen Type Arterial/C apillary 02/03/2019 7:05 PM CDT [facility] Blood BLOOD SPECIMEN / Unknown 02/03/2019 5:22 PM CDT 02/03/2019 7:05 PM CDT Michelle Pratt MD LAB - POINT OF CARE ORDERABLES Performing Organization Address [facility] Co de Phone Number [facility] [address] [place] [id number] * EKG 12-LEAD (02/03/2019 4:29 PM CDT) Ventricular Rate 81 BPM [facility] Atrial Rate 166 BPM [facility] QRS Duration ms 92 ms [facility] Q-T Interval ms 372 ms [facility] QTC Calculation (Bezet) 432 ms [facility] M[facility] Calculated R Coventry -6 degrees [facility] M[facility] Calculated T Coventry 25 degrees [facility] MUSE Interpretation EKG ATRIAL FIBRILLATION LOW VOLTAGE QRS SEPTAL INFARCT , AGE UNDETERMINED ABNORMAL ECG Confirmed by DO Campoverde Stephanie ([id number]) on 02/06/2019 9:13:20 AM [facility] 02/03/2019 4:29 PM CDT 02/06/2019 9:13 AM CDT Michelle Pratt MD ECG ORDERABLES Performing Organization Address City/[facility]/ZIP Co de Phone Number [facility] * (ABNORMAL) GLUCOSE - POINT OF CARE (02/03/2019 1:00 PM CDT) Glucose WB/POC 155(H) 70 - 106 mg/dL 02/03/2019 7:05 PM CDT [facility] Specimen Type Arterial/C apillary 02/03/2019 7:05 PM CDT [facility] Blood BLOOD SPECIMEN / Unknown 02/03/2019 1:00 PM CDT 02/03/2019 7:05 PM CDT Michelle Pratt MD LAB - POINT OF CARE ORDERABLES Performing Organization Address [facility] Co de Phone Number [facility] [address] [place] [phone] * GLUCOSE - POINT OF CARE (02/03/2019 10:10 AM CDT) Glucose WB/POC 106 70 - 106 mg/dL 02/03/2019 7:05 PM CDT [facility] Specimen Type Arterial/C apillary 02/03/2019 7:05 PM CDT [facility] Blood BLOOD SPECIMEN / Unknown 02/03/2019 10:10 AM CDT 02/03/2019 7:05 PM CDT Michelle Pratt MD LAB - POINT OF CARE ORDERABLES Performing Organization Address City/[facility] Co de Phone Number [facility] [address] [place] [phone] * XR FEMUR 2 VW RIGHT (02/03/2019 [...] ??No evidence of significant effusion. Procedure Note Daryb Dangelo MD - 02/03/2019 Right femur, 2 [...] 2.2 mmol/L 02/03/2019 5:15 AM CDT [facility] Blood BLOOD SPECIMEN / Unknown Lab Venipuncture / Unknown 02/03/2019 4:13 AM CDT 02/03/2019 4:39 AM CDT Yasmany Oh MD LAB - CHEMISTRY ROYCE KLINE Performing Organization Address [facility] Co de Phone Number [facility] [address] [phone] * HEMOGLOBIN A1C (02/03/2019 1:06 AM CDT) Pathologist [facility] Hemoglobin A1c 5.8 4.0 - 6.1 % 02/03/2019 10:11 AM CDT [facility] Estimated Average Glucose 120 mg/dL 02/03/2019 10:11 AM CDT [facility] Blood BLOOD SPECIMEN / Unknown Lab Venipuncture / Unknown 02/03/2019 1:06 AM CDT 02/03/2019 1:16 AM CDT Michelle Pratt MD LAB - CHEMISTRY ORD JANUSZBLES Performing Organization Address [facility] de Phone Number [facility] [address] [place], [place] [phone] * PT-INR (02/03/2019 1:06 AM CDT) Pathologist [facility] PT 11.3 9.5 - 11.6 sec 02/03/2019 1:36 AM CDT [facility] INR 1.1 0.9 - 1.1 02/03/2019 1:36 AM CDT [facility] Blood BLOOD SPECIMEN / Unknown Lab Venipuncture / Unknown 02/03/2019 1:06 AM CDT 02/03/2019 1:16 AM CDT Narrative [facility] - 02/03/2019 1:36 AM CDT Conventional Warfarin Anticoagulant Therapy: INR Reference Range: ??2.0-3.0 Intensive Warfarin Anticoagulant Therapy: INR Reference Range: ? 2.5-3.5 Yasmany Oh MD LAB - COAGULATION OR DERABLES Performing Organization Address [facility] Co de Phone Number [facility] [address] [place], [place] [phone] * (ABNORMAL) COMPREHENSIVE METABOLIC PANEL (02/03/2019 1:06 AM CDT) Pathologist [facility] Glucose 112(H) 74 - 106 mg/dL 02/03/2019 1:41 AM CDT [facility] Sodium 134(L) 136 - 145 mmol/L 02/03/2019 1:41 AM CDT [facility] Potassium 4.3 3.5 - 5.1 mmol/L 02/03/2019 1:41 AM CDT [facility] Chloride 101 98 - 107 mmol/L 02/03/2019 1:41 AM CDT [facility] CO2 25 23 - 31 mmol/L 02/03/2019 1:41 AM CDT [facility] Calcium 9.5 8.4 - 10.2 mg/dL 02/03/2019 1:41 AM CDT [facility] Anion Gap 8 8 - 16 mmol/L 02/03/2019 1:41 AM CDT [facility] BUN 19 8.4 - 25.7 mg/dL 02/03/2019 1:41 AM CDT [facility] Creatinine 1.22(H) 0.73 - 1.18 mg/dL 02/03/2019 1:41 AM T [facility] Alkaline Phosphatase 304(H) 40 - 150 U/L 02/03/2019 1:41 AM CDT [facility] ALT 21 13 - 61 U/L 02/03/2019 1:41 AM CDT [facility] AST 20 5 - 34 U/L 02/03/2019 1:41 AM T [facility] Protein Total 7.0 6.4 - 8.3 gm/dL 02/03/2019 1:41 AM T [facility] Albumin 3.1(L) 3.2 - 4.6 gm/dL 02/03/2019 1:41 AM T [facility] Bilirubin Total 1.0 0.2 - 1.2 mg/dL 02/03/2019 1:41 AM CDT [facility] eGFR by MDRD 59 mL/min/1.7 3m2 02/03/2019 1:41 AM CDT [facility] eGFR by MDRD >60 mL/min/1.7 3m2 02/03/2019 1:41 AM [facility] Blood BLOOD SPECIMEN / Unknown Lab Venipuncture / Unknown 02/03/2019 1:06 AM CDT 02/03/2019 1:16 AM CDT Yasmany Oh MD [facility] Organization Address City/State/ZIP Co de Phone Number [facility] [address] [place] [address] * (ABNORMAL) CBC W AUTO DIFFERENTIAL (02/03/2019 1:06 AM CDT) WBC 14.2(H) 4.4 - 10.7 x10E9/L 02/03/2019 1:22 AM CDT [facility] WBC Corrected 02/03/2019 1:22 AM CDT [facility] RBC 3.64(L) 3.80 - 5.40 x10E12/L 02/03/2019 1:22 AM CDT [facility] Hemoglobin 9.9(L) 12.0 - 17.6 gm/dL 02/03/2019 1:22 AM CDT [facility] Hematocrit 32.9(L) 35.2 - 51.7 % 02/03/2019 1:22 AM CDT [facility] MCV 90.4 80.7 - 98.3 fl 02/03/2019 1:22 AM CDT [facility] MCH 27.2 26.7 - 34.0 pg 02/03/2019 1:22 AM CDT [facility] MCHC 30.1(L) 30.8 - 35.9 gm/dL 02/03/2019 1:22 AM CDT [facility] Platelet Count 241 153 - 416 x10E9/L 02/03/2019 1:22 AM CDT [facility] RDW-CV 15.9(H) 12.1 - 14.9 % 02/03/2019 1:22 AM CDT [facility] MPV 12.1 9.4 - 12.9 fl 02/03/2019 1:22 AM CDT [facility] Neutrophils % 79.6(H) 44.0 - 73.0 % 02/03/2019 1:22 AM CDT [facility] Lymphocytes % 4.7(L) 20.0 - 43.0 % 02/03/2019 1:22 AM CDT [facility] Monocytes % 9.6 5.0 - 13.0 % 02/03/2019 1:22 AM CDT [facility] Eosinophils % 5.2 0.0 - 6.0 % 02/03/2019 1:22 AM CDT [facility] Basophils % 0.4 0.0 - 2.0 % 02/03/2019 1:22 AM CDT [facility] Immature Granulocytes 0.5 0 - 1 % 02/03/2019 1:22 AM CDT [facility] Neutrophil Absolute 11.28(H) 2.01 - 7.14 x10E9/L 02/03/2019 1:22 AM CDT [facility] Lymphocytes Absolute 0.66(L) 1.07 - 3.94 x10E9/L 02/03/2019 1:22 AM CDT [facility] Monocytes Absolute 1.36(H) 0.26 - 1.07 x10E9/L 02/03/2019 1:22 AM T [facility] Eosinophils Absolute 0.73(H) 0 - 0.47 x10E9/L 02/03/2019 1:22 AM T [facility] Basophils Absolute 0.05 0 - 0.08 x10E9/L 02/03/2019 1:22 AM CDT [facility] Immature Granulocytes Absolute 0.07(H) 0.00 - 0.06 x10E9/L 02/03/2019 1:22 AM T [facility] nRBC Auto 0 /100 WBC 02/03/2019 1:22 AM CDT [facility] Blood BLOOD SPECIMEN / Unknown Lab Venipuncture / Unknown 02/03/2019 1:06 AM CDT 02/03/2019 1:16 AM CDT Yasmany Oh MD LAB - HEMATOLOGY RAFFY [place] Performing Organization Address City/[facility] de Phone Number [facility] [address] [place], [place] [phone] * LACTIC ACID BLOOD (02/03/2019 1:06 AM CDT) Lactic Acid 0.8 0.5 - 2.2 mmol/L 02/03/2019 1:37 AM CDT [facility] Blood BLOOD SPECIMEN / Unknown Lab Venipuncture / Unknown 02/03/2019 1:06 AM CDT 02/03/2019 1:16 AM CDT Yasmany Oh MD LAB - CHEMISTRY ORDMarj KLINE [facility] [address] [place] [address] * CULTURE BLOOD (02/02/2019 10:38 PM CDT) Culture No growth day 5 UMESH 02/08/2019 2:31 AM CDT [facility] Blood PERIPHERAL BLOOD / Unknown Lab Venipuncture / Unknown 02/02/2019 10:38 PM CDT 02/02/2019 10:44 PM CDT Yasmany Oh MD LAB - MICROBIOLOGY O RIO Performing Organization Address [facility] Co de Phone Number [facility] [address] [place] [address], [facility] [phone] * CULTURE BLOOD (02/02/2019 10:38 PM CDT) Culture No growth day 5 [facility] 02/08/2019 2:31 AM CDT [facility] Blood PERIPHERAL BLOOD / Unknown Lab Venipuncture / Unknown 02/02/2019 10:38 PM CDT 02/02/2019 10:44 PM CDT Yasmany Oh MD LAB - MICROBIOLOGY O RIO Performing Organization Address [facility] Co de Phone Number [facility] [address] [place] [address], [facility] [phone] * LACTIC ACID BLOOD (02/02/2019 10:38 PM CDT) Lactic Acid 0.9 0.5 - 2.2 mmol/L 02/02/2019 11:00 PM CDT [facility] Blood BLOOD SPECIMEN / Unknown Lab Venipuncture / Unknown 02/02/2019 10:38 PM CDT 02/02/2019 10:44 PM CDT Yasmany Oh MD LAB - CHEMISTRY ROYCE KLINE Performing Organization Address [facility]/ZIP Co de Phone Number [facility] [address] [place], [place] [phone] documented in this encounter Visit Diagnoses Diagnosis [...] Rojas, RN)2152 ($ Given - Provider: Chris Carter [...] RCP)0820 ($ Given - Provider: Neva Ratliff INBOUND INGREDIENT LOGISTICS SPECIALIST)1355 ($ Given - Provider: Neva Ratliff INBOUND INGREDIENT LOGISTICS SPECIALIST)2019 ($ Given - Provider: Dru Magallon RCP) 0107 ($ Given - Provider: Dru Magallon RCP)0902 ($ Given - Provider: Citlalli Daniels RCP)1554 ($ Given - Provider: Vimal Bautista INBOUND INGREDIENT LOGISTICS SPECIALIST) ascorbic acid (VITAMIN C) tablet 500 mg [...] Rojas RN)2152 ($ Given - Provider: Chris Caretr RN) 0906 ($ Given - Provider: Cathy [...] Augustin RN) warfarin (COUMADIN) dose per pharmacy [facility] Other, DAILY AT 1700, 365 doses, First [...] documented as of this encounter Care Teams Food And Beverage Assistant Relationship Specialty Start Date End Date Briana Medeiros MD [address] [place] [address] PCP - General 02/15/18 02/22/22 documented as of this encounter
--- OUTSIDE RECORDS SUMMARY | 2024-05-25 03:04 | XMS_ITS | Encounter Summary ---
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 Since [...] 2 times daily 3 ??? nystatin (MYCOSTATIN) 372284 UNIT/GM powder APPLY TO AFFECTED AREA TWICE [...] once daily ??? vitamin D, ergocalciferol, (DRISDOL) 68806 UNITS capsule Take 50,000 Units by mouth [...] (L) SPECKLED PATTERN ([facility]) 1:80 Note Comment [id number], Serum 90 - 200 mg/dL 223 (H) [...] st Contact Info) Description 07/09/2024 12:30 PM UMBRELLA MENDER Office Visit [facility] - GI [address] [place] [address], [place] [id number] Twin Miller MD [address] [place] [address] [place] [address] 09/19/2024 2:00 PM CDT Office Visit [facility] - Orthopedic Surgery [facility] [place] [address] Vandana Alexander MD [address] [place] [address] Scheduled Orders Name Type Priority Associated Diagnoses [...] documented as of this encounter Care Teams Gas And Oil Servicer Relationship Specialty Start Date End Date Briana Medeiros MD [address] [place] [phone] PCP - General 02/15/18 02/22/22 documented as of this encounter
--- OUTSIDE RECORDS SUMMARY | 2024-05-25 03:04 | XMS_ITS | Encounter Summary ---
Author Organization [facility] Address [address] [place] [address] Care Team Providers Care Chuck Splitter Name Role Phone Briana Medeiros MD Primary Care Provider Reason for Visit * Auth/Cert Specialty Diagnoses / Procedures Referred By Contac t Referred To Contact Diagnoses Right hip infection Referral ID Status Reason Start Date Expiration Date Visits Re quested Visits Authorized [id number] 1 1 Encounter Details Date Type Department Care Team (Late st Contact Info) Description 02/04/2019 10:17 AM CDT - 02/04/2019 12:16 PM CDT Surgery [facility] PERIOPERATIVE [address] [place] [address] Larry Alexander MD [address] [address] IRRIGATION AND DEBRIDEMENT WOUND HIP Surgery Details Date/Time Status Location OR Service Patient Class Case Class Case Type Trauma Case? 02/04/2019 10:17 AM Posted [facility] MAIN OR OR 03 [...] Table, cement with gentamicinC Arm RESIDENT- Jason [phone] documented in this encounter Social History Tobacco [...] Discharge date: 02/15/2019 Admitting Physician: Lilly Jurado APRN-PAINT SPRAY INSPECTOR Attending Physician: Poncho Cisneros MD Discharge Physician: [...] -Continue Symbicort Condition at discharge: good Disposition: senior living facility Code Status At Discharge Full Code [...] 4 hours as needed vitamin D (ergocalciferol) 66008 units capsule Commonly known as: DRISDOL Take 50,000 Units by mouth every 7 days STOP taking these medications bumetanide 0.5 MG tablet Commonly known as: BUMEX ELIQUIS 5 MG tablet Generic drug: apixaban ferrous sulfate 325 (65 FE) MG tablet lidocaine 5 % patch Commonly known as: LIDODERM metoprolol succinate XL 24hr 50 MG tablet Commonly known as: TOPROL XL nystatin 250867 UNIT/GM powder Commonly known as: MYCOSTATIN Oxygen [...] 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 Alexander ?? Call [phone] to schedule the first follow-up appointment with [...] Each 02/15/2019 04/01/2019 vitamin D, ergocalciferol, (DRISDOL) 44125 UNITS capsuleIndications:Ot her cirrhosis of liver (HCC) [...] Pt;s Ride him to [facility]. All the belonging handed over to patient. Called report to DONTAE Caballero. Gladis Pacheco RN 02/15/2019 8:05 PM * Mila Degroot MSW - 02/15/2019 3:52 PM CDT Facility Transfer Note Level of Care: Skilled Rehab Payor Source: Medicare Facility Name: (include name of person confirming admission): [facility]: [phone] (toño) [phone] ([place]) [place] Made Aware of Special Needs (if applicable): N/A RN Call Report to: [phone], 100 meek RN RN Fax D/C Orders to: [phone] Transportation: Family Certificate of Medical Necessity rationale: not applicable Date/time of transfer: 02/15/19, TBD Accepting MD: Clay Completed and Signed [id number] (if applicable): not applicable Family/Other Notified of Transfer (name/phone): Extended Emergency Contact Information Primary Emergency Contact: Trinity Keys Address: [address] [place] [address] [place] [address] [facility] Mobile Relation: Spouse Customer Resource Specialist needed? No Authorization Skilled Care: not [...] results for input(s): DDIMERMGL in the last 42478 hours. Warfarin Dose History Date INR Dose [...] results for input(s): CDIFFTOXINAB in the last 32449 hours. No results for input(s): SEDRATE in the last 72603 hours. Recent Labs Component Name 08/15/17 0348 08/09/17 0745 08/05/17 0445 CRP 4.1* 32.0* 14.4* No results for input(s): CK in the last 35316 hours. .No results for input(s): VANCOTROUGH, VANCOPEAK, VANCSERIES in the last 42465 hours. Invalid input(s): VANCORAND Recent Labs Component [...] sed rate, C-reactive protein Fax results to [id number] Please be advised that part of this text was done using voice recognition software. Errors may havebeen missed upon review. Raysa Nevarez MD * Mila Degroot DIRECTOR OF ACQUISITION MARKETING - 02/15/2019 12:14 PM CDT Social Work Progress Note Chart reviewed, this SW following today, work up and treatment is in progress, as per previous CM/SW notes, plan is: SNF. Pt would like to go to [facility]: [phone] (f) [phone]. SW made the referral and they are going to review for placement. SW will update once progress is made. 1551- Pt is accepted at [facility]: [phone] (f) [phone] and they can accept him today after he gets his IV vanc. Discharge Plan Disposition: SNF Transportation: Ambulance Anticipated Discharge Date: TBD Contacts: Extended Emergency Contact Information Primary Emergency Contact: Trinity Keys Address: [address] [place] [address] [place] [address] [facility] Mobile Relation: Spouse Customer Resource Specialist needed? No CHRIS Clifford 02/15/2019 12:14 [...] obtain a vancomycin level this evening 02/15 st7167. Will continue to adjust and monitor. Nicole [...] results for input(s): MAGMGDL in the last 46967 hours. Recent Labs Component Name 09/19/17 0243 [...] becomes available. Poncho Cisneros MD [facility] Hospitalist 02/14/2019 7:02 PM * [...] results for input(s): DDIMERMGL in the last 64396 hours. Warfarin Dose History Date INR Dose [...] Cheryl Mccoy, EliazarD 02/14/2019 1:28 PM * Rasya Nevarez MD - 02/14/2019 12:32 PM CDT Infectious Diseases Consult Note Patient's Primary Care Physician: Briana Medeiros MD Reason for Consultation: Right total hip arthroplasty infection Referring Physcian: Lilly Jurado APRN-PAINT SPRAY INSPECTOR Name: José Miguel Keys Age: [age] year [...] results for input(s): CDIFFTOXINAB in the last 81482 hours. No results for input(s): SEDRATE in the last 42146 hours. Recent Labs Component Name 08/15/17 0348 08/09/17 0745 08/05/17 0445 CRP 4.1* 32.0* 14.4* No results for input(s): CK in the last 11222 hours. .No results for input(s): VANCOTROUGH, VANCOPEAK, VANCSERIES in the last 77132 hours. Invalid input(s): VANCORAND Recent Labs Component [...] 0600 222 lb 9.6 oz (101 kg) [facility] 02/02/192124 208 lb (94.3 kg) -- 02/02/192058 [...] results for input(s): PREALBUMIN in the last 43187 hours. No data found. Skin/Wound: incision Last [...] hip arthroplasty infection Referring Physcian: Lilly Jurado APRN-PAINT SPRAY INSPECTOR Name: José Miguel Keys Age: [age] year [...] results for input(s): CDIFFTOXINAB in the last 66562 hours. No results for input(s): SEDRATE in the last 88801 hours. Recent Labs Component Name 08/15/17 0348 08/09/17 0745 08/05/17 0445 CRP 4.1* 32.0* 14.4* No results for input(s): CK in the last 12221 hours. .No results for input(s): VANCOTROUGH, VANCOPEAK, VANCSERIES in the last 18889 hours. Invalid input(s): VANCORAND Recent Labs Component [...] Shell MD - 02/14/2019 6:30 AM CDT [facility] Orthopedic Surgery Daily Progress Note José Miguel Keys, 68 year old, male : 1950 CSN: [id number] Primary Care Physician: Briana Medeiros MD - [...] INR's please fax results to clinic ( [facility], [phone] for [facility]) ?? Keep wound clean and [...] tub soaks. No scrubbing around incision. ?? Glen to be removed at [address] Alexander ?? Call [phone] to schedule the first follow-up appointment with Dr. Cutler in 3 weeks ?? Any questions or [...] results for input(s): MAGMGDL in the last 85087 hours. Recent Labs Component Name 09/19/17 0243 [...] q24h ?? warfarin (COUMADIN) dose per pharmacy [facility], Other, QDay 1700 ?? zinc [...] DC to facility tomorrow Poncho Cisneros MD [facility] Hospitalist 02/13/2019 7:45 PM * Efrain Rojas RN - 02/13/2019 6:03 PM CDT Shift summary: patient up amb with walker, CHG bath done, appetite fair, PICC Line placed for IVABX, taught PICC line care, how to flush and network support manager ivabx . Patient thinking about taking patient with home health. demonstrated how to flush and disconnect pt from iv pump. Call light and phone within reach. * Fay Otero, DIRECTOR OF ACQUISITION MARKETING - 02/13/2019 3:09 PM CDT Spoke with admission coordinator for [facility] who verified that the facility has a male bed available. Pt medical record faxed to [facility]. DIRECTOR OF ACQUISITION MARKETING will continue to follow and coordinate d/c. CHRIS Herrera 02/13/2019 3:12 PM [phone] * Christina Hamilton, PT - 02/13/2019 1:23 PM CDT Attempted to see pt for PT treatment. Unable to complete visit secondary to patient having PICC line placed. Will attempt another time. Christina Hamilton, PT [phone] * Fay Otero, DIRECTOR OF ACQUISITION MARKETING - 02/13/2019 11:37 AM CDT Spoke with admission coordinator for [facility] facility does not have a male bed available. Message left for admission coordinator for [facility] re: bed availability. DIRECTOR OF ACQUISITION MARKETING will continue to follow and coordinate d/c. CHRIS Herrera 02/13/2019 11:43 AM [phone] * Zbigniew Sandoval RN - 02/13/2019 8:23 [...] results for input(s): DDIMERMGL in the last 86284 hours. Warfarin Dose History Date INR Dose [...] and redness of the region.He went to [facility] and workup there including CT of the right hip revealed suspected abscess for which he was transferred here for further evaluation by [facility] Orth[facility]. Has history of MRSA bacteremia [...] postop day 7. MSK: DELICIA Macias. Nl pooling operator appreciated. No cce, no erythema of surgical [...] wishes, and discussion with multidisciplinary care team (studio operations manager, DIRECTOR OF ACQUISITION MARKETING, CSN, Therapy services, Pharmacy, and catalogue compiler) the current recommendation for the most appropriate discharge destination at this time is: Inpt rehab vs Home Anticipated discharge date: Possible discharge tomorrow 02/13. Needs PICC line and fpc/insurance authorization Disposition: Due to medical issues in [...] and phone within reach. * Fay Otero, DIRECTOR OF ACQUISITION MARKETING - 02/12/2019 3:23 PM CDT Case reviewed with RN/CM during afternoon huddle. PER huddle pt spouse requesting SNF placement at [facility] or [facility]. Message left for admission coordinators for [facility] and [facility] re: bed availability. DIRECTOR OF ACQUISITION MARKETING will continue to follow and coordinate d/c. CHRIS Herrera 02/12/2019 3:26 PM [phone] * Maria Guadalupe Roberts RN - 02/12/2019 2:18 PM CDT Case Management Progress Note Anticipated level of care at discharge: Alf - Skilled Facility Anticipated Discharge Date: Anticipated Discharge Date: 02/13/19 Transportation at Discharge: Family/Ambulance Comments: As documented by CM on 02/09, Spouse has chosen [facility] in [place], [place], or [facility] in [place]. Have asked Fay SUAZOW to initiate referrals for tentative discharge tmrw. Attempting to reach spouse to verify this remains the discharge plan. Maria Guadalupe Roberts RN [facility] X [phone] * Cheryl Mccoy PharmD [...] results for input(s): DDIMERMGL in the last 95229 hours. Warfarin Dose History Date INR Dose [...] PharmD 02/12/2019 2:11 PM * Fay Otero, DIRECTOR OF ACQUISITION MARKETING - 02/12/2019 12:24 PM CDT Case reviewed during huddle and MDR. RN/CM to f/u with pt spouse re:: SNF placement. DIRECTOR OF ACQUISITION MARKETING will continue to follow and coordinate d/c. CHRIS Herrera 02/12/2019 12:25 PM [phone] * Christina Hamilton, PT - 02/12/2019 11:14 [...] their diet. Written information was given using [facility] Vit K & Anticoagulant Therapy handout. [...] results for input(s): DDIMERMGL in the last 20128 hours. Warfarin Dose History Date INR Dose [...] week visit with Dr. Alexander ?? Call [phone] to schedule the first follow-up appointment with [...] and redness of the region.He went to [facility] and workup there including CT of the right hip revealed suspected abscess for which he was transferred here for further evaluation by [facility] Orthopedics. Has history of MRSA bacteremia [...] postop day 7. MSK: DELICIA Macias. Nl pooling operator appreciated. No cce, no erythema of surgical [...] wishes, and discussion with multidisciplinary care team (studio operations manager, DIRECTOR OF ACQUISITION MARKETING, CSN, Therapy services, Pharmacy, and catalogue compiler) the current recommendation for the most appropriate [...] this date. Standing posture flexed, with strong pooling operator on the walker. Pt required v/c for [...] Shell MD - 02/10/2019 11:30 AM CDT [facility] Orthopedic Surgery Daily Progress Note José Miguel Keys, 68 year old, male : 1950 CSN: [id number] Primary Care Physician: Briana Medeiros MD - [...] week visit with Dr. Alexander ?? Call [phone] to schedule the first follow-up appointment with [...] and redness of the region.He went to [facility] and workup there including CT of the right hip revealed suspected abscess for which he was transferred here for further evaluation by [facility] Orthoped[facility]. Has history of MRSA bacteremia and epidural abscess as well. He is community dwelling living with his . Current symptoms: BM yesterday, incontinence noted. Pain is better. Confusion is better,answers faster as well. Nauseated still. No f/c overnight. Significantly fluid positive post op.(+[phone]). PE: Filed Vitals: 02/09/19 1635 02/09/19 2152 [...] Skin: wound c/d/i. MSK: DELICIA Bilbipin. Nl pooling operator appreciated. No cce, no erythema of surgical [...] wishes, and discussion with multidisciplinary care team (studio operations manager, DIRECTOR OF ACQUISITION MARKETING, CSN, Therapy services, Pharmacy, and catalogue compiler) the current recommendation for the most appropriate discharge destination at this time is: Detention Facility (SNF) vs Home with HH Anticipated [...] and redness of the region.He went to [facility] and workup there including CT of the right hip revealed suspected abscess for which he was transferred here for further evaluation by [facility] Orth[facility]. Has history of MRSA bacteremia [...] Skin: wound c/d/i. MSK: DELICIA Bilat. Nl pooling operator appreciated. No cce, no erythema of surgical [...] wishes, and discussion with multidisciplinary care team (studio operations manager, DIRECTOR OF ACQUISITION MARKETING, CSN, Therapy services, Pharmacy, and catalogue compiler) the current recommendation for the most appropriate discharge destination at this time is: Detention Facility (SNF) vs Home with HH Anticipated [...] behind pt. Pt becomes anxious with sitting, KENAITZE assist to reach hand back to chair, [...] prefer to be closer to home in [place] which wouldrequire SNF placement. OT Discharge Recommendations: Inpatient Rehab;Detention Facility If this is the last Occupational Therapy visit, this serves as the discharge summary. Autumn Graham, OT * Fay Otero DIRECTOR OF ACQUISITION MARKETING - 02/09/2019 3:09 PM CDT Case reviewed with RN/CM during afternoon huddle. Per huddle pt spouse requesting SNF placement at [facility] (1st choice) and [facility] (2nd choice). Per huddle pt scheduled for a procedure next Tuesday. DIRECTOR OF ACQUISITION MARKETING will refer pt to these facilities once his closer to d/c. CHRIS Herrera [phone] * Sathya Cheney, PT - 02/09/2019 2:44 [...] level rehab. Sathya Cheney , PT Ascom [phone] If this is the last Physical Therapy [...] - 02/09/2019 2:20 PM CDT Patient from [place], lives with his . Patient s/p debridement infected R hip prosthesis. Delayed primary closure, wound vac til closure; 4-5 days. Continue iv anbx, await new cx. Patient is traditional medicaire. Max assist x2 with mobility. Eligible for skilled rehab. Andra Oneill cm, spoke to re facilities in [place] for skill rehab. requested [facility]. Anticipate discharge next week. Back up facility, if needed, [facility] in [place]. Will inform sw Fay chen rn/cm [phone] * Fay Otero, DIRECTOR OF ACQUISITION MARKETING - 02/09/2019 11:26 AM CDT Case reviewed during morning huddle. RN/CM to discuss d/c options with pt spouse. DIRECTOR OF ACQUISITION MARKETING will continueto follow and coordinate d/c. CHRIS Herrera [phone] * Sathya Cheney PT - 02/09/2019 11:14 AM CDT Attempted to see patient again for physical therapy. 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 Vitamin B12, zinc and vitamin C supplements [...] Pain affecting intake: No Estimated Needs: KCAL: 0920-7876(20-25 kcal/kg bw) Protein (g): 94-117(1.2-1.5 gm/kg iw) [...] results for input(s): PREALBUMIN in the last 34880 hours. No data found. PERTINENT MEDICATIONS FOR [...] 12:41 PM Ascom [phone] * Fay Otero, DIRECTOR OF ACQUISITION MARKETING - 02/08/2019 11:16 AM CDT Case reviewed during morning huddle. Pt currently in OR today for I&D Right hip, possible component exchange, possible revision arthroplasty. DIRECTOR OF ACQUISITION MARKETING will continue to follow and assist with [...] and redness of the region.He went to [facility] and workup there including CT of the right hip revealed suspected abscess for which he was transferred here for further evaluation by [facility] Orthopedics. Has history of MRSA bacteremia [...] rashes, petechia, purpura. MSK: DELICIA Larrybipin. Nl pooling operator appreciated. Recent Labs Component Name 02/08/19 0256 [...] wishes, and discussion with multidisciplinary care team (studio operations manager, DIRECTOR OF ACQUISITION MARKETING, CSN, Therapy services, Pharmacy, and catalogue compiler) the current recommendation for the most appropriate discharge destination at this time is: Detention Facility (SNF) vs Home with HH Anticipated [...] from the original note were not included. [facility] Orthopedic Surgery Daily Progress Note 02/08/2019 José Miguel Keys, 68 year old, male : 1950 CSN: [id number] - Admission Date/Time: 02/02/2019 8:57 PM -Today's [...] Procedure Component Value - Date/Time CULTURE ANAEROBE [[id number]] (Normal) Collected: 02/04/19 1129 Lab Status: Preliminary result Specimen: Micro from Hip Updated: 02/06/19 0634 Culture Culture in progress Narrative: Surgical Description: Right Hip CULTURE WOUND+GRAM STAIN [[id number]] (Abnormal) (Susceptibility) Collected: 02/04/191128 Lab Status: Final [...] Susceptible 1 ug/mL UMESH Final CULTURE ANAEROBE [[id number]] (Normal) Collected: 02/04/191128 Lab Status: Preliminary result Specimen: Micro from Hip Updated: 02/06/19 0634 Culture Culture in progress Narrative: Surgical Description: Right Hip CULTURE TISSUE+GRAM STAIN [[id number]] (Abnormal) (Susceptibility) Collected: 02/04/191128 Lab Status: Final [...] Susceptible 1 ug/mL UMESH Final CULTURE BLOOD [[id number]] Collected: 02/02/192237 Lab Status: Final result Specimen: Blood Peripheral Updated: 02/08/19230 Culture No growth day 5 CULTURE BLOOD [[id number]] Collected: 02/02/192237 Lab Status: Final result Specimen: [...] mg by mouth once daily nystatin (MYCOSTATIN) 324561 UNIT/GM powder APPLY TO AFFECTED AREA TWICE [...] mouth once daily vitamin D, ergocalciferol, (DRISDOL) 26558 UNITS capsule Take 50,000 Units by mouth [...] may change. Sathya Cheney , PT Ascom [phone] If this is the last Physical Therapy [...] living situation Sathya Cheney , PT Ascom [phone] If this is the last Physical Therapy [...] appropriate discharge plan. Maria Guadalupe Roberts RN [facility] X [phone] * Fay Otero DIRECTOR OF ACQUISITION MARKETING - 02/07/2019 11:57 AM CDT Pt scheduled for OR on 02/08/19. PER rounds pt may need some level of rehab. DIRECTOR OF ACQUISITION MARKETING will continue to follow and coordinate d/c. [...] surgical procedure Sathya Cheney , PT Ascom [phone] If this is the last Physical Therapy [...] Shell MD - 02/07/2019 9:41 AM CDT [facility] Orthopedic Surgery Daily Progress Note José Miguel Keys, 68 year old, male : 1950 CSN: [id number] Primary Care Physician: Briana Medeiros MD - [...] and redness of the region.He went to [facility] and workup there including CT of [...] 98% 96% 98% 98% Weight: Height: I/O/T/U: 3358/1075/2283/7gkxim0brhqde. Gen:ASA, mild distress. Does not appear in pain. Oriented to self, month HEENT: NCAT CV: RRR, No m/g/r, no ectopy Carol: No adventitial sounds or wheezes, basilar crackles improved with cough Abd: benign Neuro: nonfocal; proprioception, gait not tested. Reflexes intact Psych: approp. No Si/Hi Skin: nl, senescent changes. No rashes, petechia, purpura. MSK: DELICIA Bilat. Nl pooling operator appreciated. Recent Labs Component Name 02/07/1940802/06/1941802/05/19 0238 [...] wishes, and discussion with multidisciplinary care team (studio operations manager, DIRECTOR OF ACQUISITION MARKETING, CSN, Therapy services, Pharmacy, and catalogue compiler) the current recommendation for the most appropriate discharge destination at this time is: Detention Facility (SNF) Anticipated discharge date: TBD Disposition: [...] returns home Sathya Cheney , PT Ascom [phone] If this is the last Physical Therapy [...] living situation Sathya Cheney , PT Ascom [phone] If this is the last Physical Therapy [...] living situation Sathya Cheney , PT Ascom [phone] If this is the last Physical Therapy [...] Chief Complaint: Right hip pain swelling Insurance: Medicare/[employer] Family Support (name and phone): Extended Emergency Contact Information Primary Emergency Contact: Trinity Keys Address: [address] [place] [address] [place] [address] [facility] Mobile Relation: Spouse Customer Resource Specialist needed? No Anticipated Discharge Date: 02/15/19 Anticipated level of care at discharge: Unknown SNF vs HHC Prior Level of Functioning: dependent on spouse as caregiver Equipment at Home: Equipment At Home: Commode-Bedside;Walker-2 Wheeled;Walker-4 Wheeled with Seat;Wheelchair-Standard Additional Equipment needed at home (does not have at home now): PCP: [facility] Pharmacy benefit: Yes Discharge Medication Needs: SW Referral: Yes, Fay DIRECTOR OF ACQUISITION MARKETING aware/following Transportation home: tbd Transportation to MD appointments: Transportation to Appointments: Family Home Care recommended and order obtained: If needed at discharge will need order entered in [facility] If patient requires HHC at discharge, he/she requests: patient choice Comments: s/p right hip irrigation and debridement, placement of antibiotic beads, and wound vacuumapplication , IV abts, pt/ot, pain control. BNA: 11 WATER SUPERVISOR: 7 Will continue to follow. For any questions or needs please contact: Early Childhood Special Educator Name/Phone number: Maria Guadalupe Roberts RN [facility] X [phone], If this is the last case making machine operatormanager inside this note serves as discharge summary * Fay Otero MSW - 02/06/2019 11:33 AM CDT Case reviewed during MDR rounds. Pt scheduled for OR on 02/08/19. PER rounds pt may need some level of rehab. DIRECTOR OF ACQUISITION MARKETING will continue to follow and coordinate d/c. * Blaire Meek MD - 02/06/2019 7:20 AM CDT 02/06/2019 7:20 AM Admitted: 02/02/2019 8:57 PM HD: 4 CC: Right hip pain Summary:??68 year old??white male with hx CAD, atrial fibrillation, prior DVT, COPD, cirrhosis, OSAwho presents with 1 week of right hip pain with associated swelling and redness of the region.He went to [facility] and workup there including CT of the right hip revealed suspected abscess for which he was transferred here for further evaluation by [facility]. Has history of MRSA bacteremia [...] rashes, petechia, purpura. MSK: DELICIA Bilat. Nl pooling operator appreciated. Recent Labs Component Name 02/06/1941802/05/19 0238 [...] wishes, and discussion with multidisciplinary care team (studio operations manager, DIRECTOR OF ACQUISITION MARKETING, CSN, Therapy services, Pharmacy, and catalogue compiler) the current recommendation for the most appropriate discharge destination at this time is: Detention Facility (SNF) Anticipated discharge date: TBD Disposition: Due to medical issues in the assessment and plan, continued hospitalization will be required. Blaire Meek MD Note is dictated utilizing voice recognition software. Unfortunately this leads to occasional typographical errors. I apologize in advance if the situation occurs. If questions occur please contact me for clarification. * Larry Alexander MD - 02/06/2019 6:39 AM CDT [facility] Orthopedic Surgery Daily Progress Note José Miguel Keys, 68 year old, male : 1950 CSN: [id number] Primary Care Physician: Briana Medeiros MD - [...] Admit date: 02/02/2019 Admitting Physician: Lilly Jurado APRN-PAINT SPRAY INSPECTOR Attending Physician: Michelle Pratt MD IP/Observation: Inpatient [...] vision loss, dizziness, dysuria. He went to [facility] and workup thereincluding CT of the right hip revealed suspected abscess for which he was transferred here for [facility] evaluation [facility]. The patient was given IV vanc and cefepime and pain meds and transferred here for evaluation by [facility]. Of note the patient had [...] results for input(s): SEDRATE in the last 21353 hours. Recent Labs Component Name 08/15/17 0348 08/09/17 0745 08/05/17 0445 CRP 4.1* 32.0* 14.4* No results for input(s): TROPONIN in the last 42484 hours. No results for input(s): DDIMER in the last 12746 hours. Recent Labs Component Name 07/24/17 0508 [...] any specific number. He was seen at [facility] yesterday and found to be tachycardic and so was started on broad spectrum antibiotics. They also obtained a pelvis xray and CT of right femur He notably has had bilateral ARNALDO performed with the right performed in 2005 and the left in 2010. No complaints on the left ARNALDO. His primary surgeon has since moved to [place] according to the patient. Dr. Amos at [facility] did not feel comfortable managing this patient. 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 He also has afib for which he is on xarelto and a history of a [place]. He has VALENTINA and wears a CPAP [...] min a Outcome: Ongoing * Jonny Reynolds, [facility] - 02/05/2019 8:55 AM CDT Vancomycin Per [...] Procedure Component Value - Date/Time CULTURE ANAEROBE [[id number]] Collected: 02/04/191128 Lab Status: In process Specimen: Micro from Hip Updated: 02/04/19 1208 CULTURE WOUND+GRAM STAIN [[id number]] Collected: 02/04/191128 Lab Status: Preliminary result Specimen: Micro from Hip Updated: 02/04/19 222 Gram Stain Heavy Polymorphonuclear cells Moderate Red blood cells No organisms seen Narrative: Surgical Description: Right Hip CULTURE ANAEROBE [[id number]] Collected: 02/04/191128 Lab Status: In process Specimen: Micro from Hip Updated: 02/04/19 1208 CULTURE TISSUE+GRAM STAIN [[id number]] Collected: 02/04/191128 Lab Status: Preliminary result Specimen: Micro from Hip Updated: 02/04/192237 Gram Stain Moderate Polymorphonuclear cells Heavy Red blood cells No organisms seen Narrative: Surgical Description: Right Hip CULTURE BLOOD [[id number]] Collected: 02/02/192237 Lab Status: Preliminary result Specimen: Blood Peripheral Updated: 02/05/19 0230 Culture No growth CULTURE BLOOD [[id number]] Collected: 02/02/192237 Lab Status: Preliminary result Specimen: [...] pain med is needed. 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 He went to [facility] and workup thereincluding CT of the right hip revealed suspected abscess for which he was transferred here for further evaluation by [facility]. The patient was given IV vanc and cefepime and pain meds and transferred here for evaluation by [facility]. Of note the patient had [...] results for input(s): SEDRATE in the last 05998 hours. Recent Labs Component Name 08/15/17 0348 08/09/17 0745 08/05/17 0445 CRP 4.1* 32.0* 14.4* No results for input(s): TROPONIN in the last 15503 hours. No results for input(s): DDIMER in the last 35854 hours. Recent Labs Component Name 07/24/17 0508 [...] Procedure Component Value - Date/Time CULTURE BLOOD [[id number]] Collected: 02/02/192237 Lab Status: Preliminary result Specimen: Blood Peripheral Updated: 02/04/19 0230 Culture No growth 24 hours CULTURE BLOOD [[id number]] Collected: 02/02/192237 Lab Status: Preliminary result Specimen: [...] by mouth once daily ??? nystatin (MYCOSTATIN) 711370 UNIT/GM powder APPLY TO AFFECTED AREA TWICE [...] once daily ??? vitamin D, ergocalciferol, (DRISDOL) 66781 UNITS capsule Take 50,000 Units by mouth [...] touch and edematous. Voiding perurinal. NPO since [place] for surgery today. CHG skin wash done. 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 He went to [facility] and workup thereincluding CT of the right hip revealed suspected abscess for which he was transferred here for further evaluation by [facility]. The patient was given IV vanc and cefepime and pain meds and transferred here for evaluation by [facility]. Of note the patient had [...] results for input(s): SEDRATE in the last 90428 hours. Recent Labs Component Name 08/15/17 0348 08/09/17 0745 08/05/17 0445 CRP 4.1* 32.0* 14.4* No results for input(s): TROPONIN in the last 80180 hours. No results for input(s): DDIMER in the last 17667 hours. Recent Labs Component Name 07/24/17 0508 [...] Michelle Pratt MD Hospitalist * Jonny Reynolds, [facility] - 02/03/2019 3:51 AM CDT Vancomycin Dosing [...] vision loss, dizziness, dysuria. He went to [facility] and workup thereincluding CT of the right hip revealed suspected abscess for which he was transferred here for further evaluation by [facility]. The patient was given IV vanc and cefepime and pain meds and transferred here for evaluation by [facility]. Of note the patient had [...] by mouth once daily ??? nystatin (MYCOSTATIN) 513089 UNIT/GM powder APPLY TO AFFECTED AREA TWICE [...] once daily ??? vitamin D, ergocalciferol, (DRISDOL) 03140 UNITS capsule Take 50,000 Units by mouth [...] hip arthroplasty infection Referring Physcian: Lilly Jurado APRN-PAINT SPRAY INSPECTOR Name: José Miguel Keys Age: [age] year old 10 The patient is a 68 y/o man with h/o MRSA sepsis treated at [facility] last year, complicated with epidural abscess. He [...] results for input(s): CDIFFTOXINAB in the last 37891 hours. No results for input(s): SEDRATE in the last 46502 hours. Recent Labs Component Name 08/15/17 0348 08/09/17 0745 08/05/17 0445 CRP 4.1* 32.0* 14.4* No results for input(s): CK in the last 88354 hours. .No results for input(s): VANCOTROUGH, VANCOPEAK, VANCSERIES in the last 92001 hours. Invalid input(s): VANCORAND Recent Labs Component [...] CDTAssociated Order(s): IP CONSULT TO PASTORAL CARE Terminal Operations Manager responded to consult for prayer by visiting with Pt and family and offering prayer and spiritual care support. * Larry Alexander MD - 02/03/2019 5:33 AM CDTAssociated Order(s): IP CONSULT TO ORTHOPEDIC SURGERY Orthopaedic Surgery Consult Note José Miguel Keys 1950 [id number] Briana Medeiros MD Date of service: 02/03/2019 [...] any specific number. He was seen at [facility] yesterday and found to be tachycardic and so was started on broad spectrum antibiotics. They also obtained a pelvis xray and CT of right femur He notably has had bilateral ARNALDO performed with the right performed in 2005 and the left in 2010. No complaints on the left ARNALDO. His primary surgeon has since moved to [place] according to the patient. Dr. Amos at [facility] did not feel comfortable managing this patient. 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 He also has afib for which he is on xarelto and a history of a [place]. 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 nystatin (MYCOSTATIN) 050483 UNIT/GM powder APPLY TO AFFECTED AREA TWICE [...] once daily ??? vitamin D, ergocalciferol, (DRISDOL) 34655 UNITS capsule Take 50,000 Units by mouth [...] hip scar Distal DF/PF ankle/toesR LE + [facility] - R femur/hip and [...] cultures and intraoperative a ppearance, NPO at nc, hold eliquis, pain control, abx per ID documented in this encounter OR Notes * Operative - Larry Alexander MD - 02/08/2019 3:01 PM CDT [facility] Operative Report PATIENT NAME: JOSÉ MIGUEL KEYS MR#: [id number] DATE OF : 1950 CSN: [id number] DATE OF ADMISSION: 02/02/2019 ROOM#: [facility] INTRAOP DATE OF OPERATION: 02/08/2019 PREOPERATIVE [...] complex surgical wound. SURGEON: Frandy Alexander M.D. AIRCRAFT MACHINIST: Alberto Wakefield MD. ANESTHESIA: General. INDICATIONS FOR PROCEDURE: The patient is a 68-year-old man, who has had bilateral hip arthroplasties by another surgeon, who became infected and was transferred to [facility] for a tertiary level of [...] ALEXANDER M.D. DICTATED FOR: PERRY/GURWINDER JOB ID: [id number] Operative Report * Brief Op Note - Alberto Shell MD - 02/08/2019 11:51 AM CDT Brief Op Note Procedure: REVISION HIP ARTHROPLASTY BOTH COMPONENT, EXCISION BURSA (BURSECTOMY) TROCHANTERIC/HIP, CLOSURE PRIMARY DELAYED/SECONDARY (ANY AREA) Patient Name: José Miguel Keys Date of Service: 02/08/2019 Pre-Op Diagnosis: Infected Right ARNALDO, cultures positive for MRSA Post-Op Diagnosis: same Surgeon(s) and Role: * Larry Alexander MD - Primary Sterile Process Coordinator(s): Alberto Shell MD Anesthesia Type: general Complications: none Findings: Well fixed femoral stem EBL: 400 mL Urine Output : 250 mL IV Fluid Intake: Please see anesthesia notes Drains: GJ Tube Percutaneous Endoscopic Gastrostomy Abdomen;Left (Active) Specimen(s): none Alberto Shell MD * Operative - Larry Alexander MD - 02/04/2019 12:19 PM CDT [facility] Operative Report PATIENT NAME: JOSÉ MIGUEL KEYS MR#: [id number] DATE OF : 1950 CSN: [id number] DATE OF ADMISSION: 02/02/2019 ROOM#: [id number] DATE OF OPERATION: 02/04/2019 PREOPERATIVE DIAGNOSIS: Infected right total hip arthroplasty. POSTOPERATIVE DIAGNOSIS: Infected right total hip arthroplasty. PROCEDURES: 1. Irrigation and debridement with arthrotomy, infected right hip Arthroplasty. 2. Irrigation and debridement of infected right hip trochanteric bursa 2. Wound VAC application, right hip. SURGEON: Frandy Alexander M.D. AIRCRAFT MACHINIST: Jason Blackburn MD. ANESTHESIA: General. INDICATION FOR [...] ALEXANDER M.D. DICTATED FOR: PERRY/GURWINDER JOB ID: [id number] Operative Report * Brief Op Note - Jason Blackburn MD - 02/04/2019 11:56 AM CDT Brief Op Note Procedure: RIGHT HIP IRRIGATION AND DEBRIDEMENT, WOUND VAC PLACEMENT Patient Name: José Miguel Keys Date of Service: 02/04/2019 Pre-Op Diagnosis: right infected ARNALDO Post-Op Diagnosis: same Surgeon(s) and Role: * Larry Alexander MD - Primary Sterile Process Coordinator(s): Jason Blackburn MD Anesthesia Type: general Complications: none Findings: Gross purulence with deep tracks. EBL: minimal blood loss Drains: GJ Tube Percutaneous Endoscopic Gastrostomy Abdomen;Left (Active) Specimen(s): tissue and fluid cultures Jason Blackburn MD documented in this encounter Plan of Treatment Upcoming Encounters Date Type Department Care Team (Late st Contact Info) Description 07/09/2024 12:30 PM MEDIA ASSISTANT Office Visit [facility] - GI [address] [place] [address], [place] [address] Twin Miller MD [address] [place] [address] [place] [address] 09/19/2024 2:00 PM CDT Office Visit [facility] - Orthopedic Surgery [facility] [place] [address] Larry Alexander MD [address] [facility] [address] [place] [address] Scheduled Orders Name Type Priority Associated Diagnoses [...] STAT 02/04/2019 11:29 AM CDT Diagnosis unknown MI NEG PRESS WND TX PER SESS; TOT SURF </= 50 SQ CM 02/04/2019 10:12 AM CDT Special Needs Shaheen Table, cement with gentamicinC Arm RESIDENT- Jason [phone] MI INCIS/DRAIN PELVIS/HIP,DEEP ABSCESS 02/04/2019 10:12 AM CDT Special Needs Shaheen Table, cement with gentamicinC Arm RESIDENT- Jason [phone] GLUCOSE - POINT OF CARE Routine 02/04/2019 [...] - 20.0 ug/mL 02/15/2019 5:16 PM CDT [facility] Blood BLOOD SPECIMEN / Unknown Venipuncture / Unknown 02/15/2019 4:50 PM CDT 02/15/2019 4:55 PM CDT Poncho Cisneros MD LAB - CHEMISTRY ROYCE KLINE Performing Organization Address [facility] Co de Phone Number [facility] [address] [place] [address] * (ABNORMAL) PT-INR (02/15/2019 3:07 AM CDT) PT 18.9(H) 9.5 - 11.6 sec 02/15/2019 4:09 AM CDT [facility] INR 1.9(H) 0.9 - 1.1 02/15/2019 4:09 AM CDT [facility] Blood BLOOD SPECIMEN / Unknown Lab Venipuncture / Unknown 02/15/2019 3:07 AM CDT 02/15/2019 3:51 AM CDT Narrative [facility] - 02/15/2019 4:09 AM CDT Conventional Warfarin Anticoagulant Therapy: INR Reference Range: ??2.0-3.0 Intensive Warfarin Anticoagulant Therapy: INR Reference Range: ? 2.5-3.5 Blaire Meek MD LAB - COAGULATION OR DERABLES Performing Organization Address [facility] Co de Phone Number [facility] [address] [place] [address] [phone] * (ABNORMAL) BASIC METABOLIC PANEL (CALCIUM TOTAL) (02/15/2019 3:07 AM CDT) Glucose 98 74 - 106 mg/dL 02/15/2019 4:27 AM CDT [facility] Sodium 141 136 - 145 mmol/L 02/15/2019 4:27 AM CDT [facility] Potassium 3.7 3.5 - 5.1 mmol/L 02/15/2019 4:27 AM CDT [facility] Chloride 106 98 - 107 mmol/L 02/15/2019 4:27 AM CDT [facility] CO2 28 23 - 31 mmol/L 02/15/2019 4:27 AM CDT [facility] Calcium 8.6 8.4 - 10.2 mg/dL 02/15/2019 4:27 AM CDT [facility] Anion Gap 7(L) 8 - 16 mmol/L 02/15/2019 4:27 AM CDT [facility] BUN 17 8.4 - 25.7 mg/dL 02/15/2019 4:27 AM CDT [facility] Creatinine 1.02 0.73 - 1.18 mg/dL 02/15/2019 4:27 AM CDT [facility] eGFR by MDRD >60 mL/min/1.7 3m2 02/15/2019 4:27 AM CDT [facility] eGFR by MDRD >60 mL/min/1.7 3m2 02/15/2019 4:27 AM CDT [facility] Blood BLOOD SPECIMEN / Unknown Lab Venipuncture / Unknown 02/15/2019 3:07 AM CDT 02/15/2019 3:51 AM CDT Blaire Meek MD LAB - CHEMISTRY ROYCE KLINE [facility] Organization Address City/State/ZIP Co de Phone Number [facility] [address] [place] [address] * (ABNORMAL) CBC W AUTO DIFFERENTIAL (02/15/2019 3:07 AM CDT) WBC 8.5 4.4 - 10.7 x10E9/L 02/15/2019 4:05 [facility] W[facility] Corrected 02/15/2019 4:05 AM [facility] RBC 2.74(L) 3.80 - 5.40 x10E12/L 02/15/2019 4:05 AM CDT [facility] Hemoglobin 7.4(L) 12.0 - 17.6 gm/dL 02/15/2019 4:05 AM CDT [facility] Hematocrit 25.0(L) 35.2 - 51.7 % 02/15/2019 4:05 AM CDT [facility] MCV 91.2 80.7 - 98.3 fl 02/15/2019 4:05 AM CDT [facility] MCH 27.0 26.7 - 34.0 pg 02/15/2019 4:05 AM CDT [facility] MCHC 29.6(L) 30.8 - 35.9 gm/dL 02/15/2019 4:05 AM CDT [facility] Platelet Count 284 153 - 416 x10E9/L 02/15/2019 4:05 AM [facility] RDW-CV 17.0(H) 12.1 - 14.9 % 02/15/2019 4:05 AM [facility] MPV 11.5 9.4 - 12.9 fl 02/15/2019 4:05 AM [facility] Neutrophils % 72.9 44.0 - 73.0 % 02/15/2019 4:05 AM [facility] Lymphocytes % 8.7(L) 20.0 - 43.0 % 02/15/2019 4:05 AM [facility] Monocytes % 8.0 5.0 - 13.0 % 02/15/2019 4:05 AM [facility] Eosinophils % 8.0(H) 0.0 - 6.0 % 02/15/2019 4:05 AM [facility] Basophils % 0.5 0.0 - 2.0 % 02/15/2019 4:05 AM [facility] Immature Granulocytes 1.9(H) 0 - 1 % 02/15/2019 4:05 AM [facility] Neutrophil Absolute 6.18 2.01 - 7.14 x10E9/L 02/15/2019 4:05 AM [facility] Lymphocytes Absolute 0.74(L) 1.07 - 3.94 x10E9/L 02/15/2019 4:05 AM [facility] Monocytes Absolute 0.68 0.26 - 1.07 x10E9/L 02/15/2019 4:05 AM [facility] Eosinophils Absolute 0.68(H) 0 - 0.47 x10E9/L 02/15/2019 4:05 AM [facility] Basophils Absolute 0.04 0 - 0.08 x10E9/L 02/15/2019 4:05 AM [facility] Immature Granulocytes Absolute 0.16(H) 0.00 - 0.06 x10E9/L 02/15/2019 4:05 AM [facility] nRBC Auto 0 /100 WBC 02/15/2019 4:05 AM [facility] Blood BLOOD SPECIMEN / Unknown Lab Venipuncture / Unknown 02/15/2019 3:07 AM CDT 02/15/2019 3:51 AM CDT Blaire Meek MD LAB - HEMATOLOGY ORD ERABLES Performing Organization Address [facility] Co de Phone Number [facility] [address] [place] [phone] * (ABNORMAL) PT-INR (02/14/2019 3:46 AM CDT) PT 18.3(H) 9.5 - 11.6 sec 02/14/2019 5:27 AM CDT [facility] INR 1.9(H) 0.9 - 1.1 02/14/2019 5:27 AM CDT [facility] Blood BLOOD SPECIMEN / Unknown Lab Venipuncture / Unknown 02/14/2019 3:46 AM CDT 02/14/2019 4:16 AM CDT Narrative [facility] - 02/14/2019 5:27 AM CDT Conventional Warfarin Anticoagulant Therapy: INR Reference Range: ??2.0-3.0 Intensive Warfarin Anticoagulant Therapy: INR Reference Range: ? 2.5-3.5 Blaire Meek MD LAB - COAGULATION OR DERABLES Performing Organization Address [facility] Co de Phone Number [facility] [address] [place] [address] * (ABNORMAL) BASIC METABOLIC PANEL (CALCIUM TOTAL) (02/14/2019 3:46 AM CDT) Glucose 113(H) 74 - 106 mg/dL 02/14/2019 4:56 AM CDT [facility] Sodium 141 136 - 145 mmol/L 02/14/2019 4:56 AM CDT [facility] Potassium 3.7 3.5 - 5.1 mmol/L 02/14/2019 4:56 AM CDT [facility] Chloride 108(H) 98 - 107 mmol/L 02/14/2019 4:56 AM CDT [facility] CO2 28 23 - 31 mmol/L 02/14/2019 4:56 AM CDT [facility] Calcium 8.4 8.4 - 10.2 mg/dL 02/14/2019 4:56 AM CDT [facility] Anion Gap 5(L) 8 - 16 mmol/L 02/14/2019 4:56 AM CDT [facility] BUN 18 8.4 - 25.7 mg/dL 02/14/2019 4:56 AM CDT [facility] Creatinine 1.10 0.73 - 1.18 mg/dL 02/14/2019 4:56 AM CDT [facility] eGFR by MDRD >60 mL/min/1.7 3m2 02/14/2019 4:56 AM CDT [facility] eGFR by MDRD >60 mL/min/1.7 3m2 02/14/2019 4:56 AM CDT [facility] Blood BLOOD SPECIMEN / Unknown 02/14/2019 3:46 AM CDT 02/14/2019 4:15 AM CDT Blaire Meek MD LAB - CHEMISTRY ROYCE KLINE [facility] [address] [place] [address] * (ABNORMAL) CBC W AUTO DIFFERENTIAL (02/14/2019 2:58 AM CDT) WBC 9.6 4.4 - 10.7 x10E9/L 02/14/2019 4:47 AM CDT [facility] WBC Corrected 02/14/2019 4:47 AM CDT [facility] RBC 2.80(L) 3.80 - 5.40 x10E12/L 02/14/2019 4:47 AM CDT [facility] Hemoglobin 7.7(L) 12.0 - 17.6 gm/dL 02/14/2019 4:47 AM CDT [facility] Hematocrit 26.0(L) 35.2 - 51.7 % 02/14/2019 4:47 AM CDT [facility] MCV 92.9 80.7 - 98.3 fl 02/14/2019 4:47 AM CDT [facility] MCH 27.5 26.7 - 34.0 pg 02/14/2019 4:47 AM CDT [facility] MCHC 29.6(L) 30.8 - 35.9 gm/dL 02/14/2019 4:47 AM CDT [facility] Platelet Count 288 153 - 416 x10E9/L 02/14/2019 4:47 AM CDT [facility] RDW-CV 17.0(H) 12.1 - 14.9 % 02/14/2019 4:47 AM CDT [facility] MPV 11.9 9.4 - 12.9 fl 02/14/2019 4:47 AM [facility] Neutrophils % 71.9 44.0 - 73.0 % 02/14/2019 4:47 AM [facility] Lymphocytes % 8.6(L) 20.0 - 43.0 % 02/14/2019 4:47 AM [facility] Monocytes % 9.6 5.0 - 13.0 % 02/14/2019 4:47 AM T [facility] Eosinophils % 7.0(H) 0.0 - 6.0 % 02/14/2019 4:47 AM T [facility] Basophils % 0.5 0.0 - 2.0 % 02/14/2019 4:47 AM [facility] Immature Granulocytes 2.4(H) 0 - 1 % 02/14/2019 4:47 AM [facility] Neutrophil Absolute 6.90 2.01 - 7.14 x10E9/L 02/14/2019 4:47 AM [facility] Lymphocytes Absolute 0.83(L) 1.07 - 3.94 x10E9/L 02/14/2019 4:47 AM T [facility] Monocytes Absolute 0.92 0.26 - 1.07 x10E9/L 02/14/2019 4:47 AM [facility] Eosinophils Absolute 0.67(H) 0 - 0.47 x10E9/L 02/14/2019 4:47 AM [facility] Basophils Absolute 0.05 0 - 0.08 x10E9/L 02/14/2019 4:47 AM [facility] Immature Granulocytes Absolute 0.23(H) 0.00 - 0.06 x10E9/L 02/14/2019 4:47 AM [facility] nRBC Auto 0 /100 WBC 02/14/2019 4:47 AM [facility] Blood BLOOD SPECIMEN / Unknown Lab Venipuncture / Unknown 02/14/2019 2:58 AM CDT 02/14/2019 4:10 AM CDT Blaire Meek MD LAB - HEMATOLOGY ORD ERABLES [facility] [address] [place] [address] * XR CHEST FOR PICC PLMT (Place [...] - 11.6 sec 02/13/2019 5:20 AM CDT [facility] INR 1.3(H) 0.9 - 1.1 02/13/2019 5:20 AM CDT [facility] Blood BLOOD SPECIMEN / Unknown Lab Venipuncture / Unknown 02/13/2019 4:40 AM CDT 02/13/2019 4:56 AM CDT Narrative [facility] - 02/13/2019 5:20 AM CDT Conventional Warfarin Anticoagulant Therapy: INR Reference Range: ??2.0-3.0 Intensive Warfarin Anticoagulant Therapy: INR Reference Range: ? 2.5-3.5 Blaire Meek MD LAB - COAGULATION OR DERABLES Performing Organization Address City/[facility]/ZIP Co de Phone Number [facility] [address], [place] [id number] * BASIC METABOLIC PANEL (CALCIUM TOTAL) (02/13/2019 4:40 AM CDT) [facility] Glucose 106 74 - 106 mg/dL 02/13/2019 5:49 AM CDT [facility] Sodium 142 136 - 145 mmol/L 02/13/2019 5:49 AM CDT [facility] Potassium 3.6 3.5 - 5.1 mmol/L 02/13/2019 5:49 AM CDT [facility] Chloride 106 98 - 107 mmol/L 02/13/2019 5:49 AM CDT [facility] CO2 28 23 - 31 mmol/L 02/13/2019 5:49 AM CDT [facility] Calcium 8.6 8.4 - 10.2 mg/dL 02/13/2019 5:49 AM CDT [facility] Anion Gap 8 8 - 16 mmol/L 02/13/2019 5:49 AM CDT [facility] BUN 17 8.4 - 25.7 mg/dL 02/13/2019 5:49 AM CDT [facility] Creatinine 0.97 0.73 - 1.18 mg/dL 02/13/2019 5:49 AM CDT [facility] eGFR by MDRD >60 mL/min/1.7 3m2 02/13/2019 5:49 AM CDT [facility] eGFR by MDRD >60 mL/min/1.7 3m2 02/13/2019 5:49 AM CDT [facility] Blood BLOOD SPECIMEN / Unknown Lab Venipuncture / Unknown 02/13/2019 4:40 AM CDT 02/13/2019 4:56 AM CDT Blaire Meek MD LAB - CHEMISTRY ORDE RABANGELIA Performing Organization Address City/[facility]/ZIP Co de Phone Number [facility] [address], [place] [phone] * (ABNORMAL) CBC W AUTO DIFFERENTIAL (02/13/2019 4:40 AM CDT) [facility] Signature WBC 8.9 4.4 - 10.7 x10E9/L 02/13/2019 5:22 AM CDT [facility] WBC Corrected 02/13/2019 5:22 AM CDT [facility] RBC 2.73(L) 3.80 - 5.40 x10E12/L 02/13/2019 5:22 AM CDT [facility] Hemoglobin 7.6(L) 12.0 - 17.6 gm/dL 02/13/2019 5:22 AM CDT [facility] Hematocrit 25.1(L) 35.2 - 51.7 % 02/13/2019 5:22 AM CDT [facility] MCV 91.9 80.7 - 98.3 fl 02/13/2019 5:22 AM CDT [facility] MCH 27.8 26.7 - 34.0 pg 02/13/2019 5:22 AM CDT [facility] MCHC 30.3(L) 30.8 - 35.9 gm/dL 02/13/2019 5:22 AM CDT [facility] Platelet Count 287 153 - 416 x10E9/L 02/13/2019 5:22 AM CDT [facility] RDW-CV 16.7(H) 12.1 - 14.9 % 02/13/2019 5:22 AM CDT [facility] MPV 11.7 9.4 - 12.9 fl 02/13/2019 5:22 AM CDT [facility] Neutrophils % 70.3 44.0 - 73.0 % 02/13/2019 5:22 AM CDT [facility] Lymphocytes % 8.8(L) 20.0 - 43.0 % 02/13/2019 5:22 AM CDT [facility] Monocytes % 8.8 5.0 - 13.0 % 02/13/2019 5:22 AM CDT [facility] Eosinophils % 8.1(H) 0.0 - 6.0 % 02/13/2019 5:22 AM CDT [facility] Basophils % 0.6 0.0 - 2.0 % 02/13/2019 5:22 AM CDT [facility] Immature Granulocytes 3.4(H) 0 - 1 % 02/13/2019 5:22 AM CDT [facility] Neutrophil Absolute 6.25 2.01 - 7.14 x10E9/L 02/13/2019 5:22 AM CDT [facility] Lymphocytes Absolute 0.78(L) 1.07 - 3.94 x10E9/L 02/13/2019 5:22 AM CDT [facility] Monocytes Absolute 0.78 0.26 - 1.07 x10E9/L 02/13/2019 5:22 AM CDT [facility] Eosinophils Absolute 0.72(H) 0 - 0.47 x10E9/L 02/13/2019 5:22 AM CDT [facility] Basophils Absolute 0.05 0 - 0.08 x10E9/L 02/13/2019 5:22 AM CDT [facility] Immature Granulocytes Absolute 0.30(H) 0.00 - 0.06 x10E9/L 02/13/2019 5:22 AM CDT [facility] nRBC Auto 0 /100 WBC 02/13/2019 5:22 AM CDT [facility] Blood BLOOD SPECIMEN / Unknown Lab Venipuncture / Unknown 02/13/2019 4:40 AM CDT 02/13/2019 4:56 AM CDT Blaire Meek MD LAB - HEMATOLOGY ORD ERABLES [facility] [address] [place], [place] [phone] * (ABNORMAL) VANCOMYCIN LEVEL TROUGH (02/12/2019 9:22 AM CDT) Pathologist [facility] [place] Vancomycin Trough 22.6(H) 10.0 - 20.0 ug/mL 02/12/2019 10:04 AM CDT [facility] Blood BLOOD SPECIMEN / Unknown Lab Venipuncture / Unknown 02/12/2019 9:22 AM CDT 02/12/2019 9:32 AM CDT Blaire Meek MD LAB - CHEMISTRY ROYCE KLINE [facility] [address], [place] [id number] * PT-INR (02/12/2019 3:15 AM CDT) Pathologist [facility] [place] PT 11.0 9.5 - 11.6 sec 02/12/2019 4:07 AM [facility] INR 1.0 0.9 - 1.1 02/12/2019 4:07 AM [facility] Blood BLOOD SPECIMEN / Unknown Lab Venipuncture / Unknown 02/12/2019 3:15 AM CDT 02/12/2019 3:43 AM CDT [facility] - 02/12/2019 4:07 AM CDT Conventional Warfarin Anticoagulant Therapy: INR Reference Range: ??2.0-3.0 Intensive Warfarin Anticoagulant Therapy: INR Reference Range: ? 2.5-3.5 Blaire Meek MD LAB - COAGULATION OR DERABLES [facility] [address] [place] [address] * (ABNORMAL) BASIC METABOLIC PANEL (CALCIUM TOTAL) (02/12/2019 3:15 AM CDT) Pathologist [facility] [place] Glucose 114(H) 74 - 106 mg/dL 02/12/2019 4:19 AM [facility] Sodium 139 136 - 145 mmol/L 02/12/2019 4:19 AM [facility] Potassium 3.5 3.5 - 5.1 mmol/L 02/12/2019 4:19 AM [facility] Chloride 105 98 - 107 mmol/L 02/12/2019 4:19 AM [facility] CO2 27 23 - 31 mmol/L 02/12/2019 4:19 AM [facility] Calcium 8.7 8.4 - 10.2 mg/dL 02/12/2019 4:19 AM [facility] Anion Gap 7(L) 8 - 16 mmol/L 02/12/2019 4:19 AM [facility] BUN 19 8.4 - 25.7 mg/dL 02/12/2019 4:19 AM [facility] Creatinine 0.99 0.73 - 1.18 mg/dL 02/12/2019 4:19 AM [facility] eGFR by MDRD >60 mL/min/1.7 3m2 02/12/2019 4:19 AM [facility] eGFR by MDRD >60 mL/min/1.7 3m2 02/12/2019 4:19 AM CDT [facility] Blood BLOOD SPECIMEN / Unknown Lab Venipuncture / Unknown 02/12/2019 3:15 AM CDT 02/12/2019 3:43 AM CDT Blaire Meek MD LAB - CHEMISTRY ROYCE KLINE [facility] Organization Address City/State/ZIP Co de Phone Number [facility] [address] [place] [address] * (ABNORMAL) CBC W AUTO DIFFERENTIAL (02/12/2019 3:15 AM CDT) WBC 9.3 4.4 - 10.7 x10E9/L 02/12/2019 3:56 AM CDT [facility] WBC Corrected 02/12/2019 3:56 AM CDT [facility] RBC 2.84(L) 3.80 - 5.40 x10E12/L 02/12/2019 3:56 AM CDT [facility] Hemoglobin 7.5(L) 12.0 - 17.6 gm/dL 02/12/2019 3:56 AM CDT [facility] Hematocrit 26.0(L) 35.2 - 51.7 % 02/12/2019 3:56 AM CDT [facility] MCV 91.5 80.7 - 98.3 fl 02/12/2019 3:56 AM CDT [facility] MCH 26.4(L) 26.7 - 34.0 pg 02/12/2019 3:56 AM CDT [facility] MCHC 28.8(L) 30.8 - 35.9 gm/dL 02/12/2019 3:56 AM CDT [facility] Platelet Count 270 153 - 416 x10E9/L 02/12/2019 3:56 AM CDT [facility] RDW-CV 16.3(H) 12.1 - 14.9 % 02/12/2019 3:56 AM CDT [facility] MPV 11.7 9.4 - 12.9 fl 02/12/2019 3:56 AM CDT [facility] Neutrophils % 74.3(H) 44.0 - 73.0 % 02/12/2019 3:56 AM CDT [facility] Lymphocytes % 8.4(L) 20.0 - 43.0 % 02/12/2019 3:56 AM CDT [facility] Monocytes % 8.4 5.0 - 13.0 % 02/12/2019 3:56 AM CDT [facility] Eosinophils % 6.0 0.0 - 6.0 % 02/12/2019 3:56 AM CDT [facility] Basophils % 0.4 0.0 - 2.0 % 02/12/2019 3:56 AM T [facility] Immature Granulocytes 2.5(H) 0 - 1 % 02/12/2019 3:56 AM CDT [facility] Neutrophil Absolute 6.88 2.01 - 7.14 x10E9/L 02/12/2019 3:56 AM CDT [facility] Lymphocytes Absolute 0.78(L) 1.07 - 3.94 x10E9/L 02/12/2019 3:56 AM CDT [facility] Monocytes Absolute 0.78 0.26 - 1.07 x10E9/L 02/12/2019 3:56 AM CDT [facility] Eosinophils Absolute 0.56(H) 0 - 0.47 x10E9/L 02/12/2019 3:56 AM CDT [facility] Basophils Absolute 0.04 0 - 0.08 x10E9/L 02/12/2019 3:56 AM CDT [facility] Immature Granulocytes Absolute 0.23(H) 0.00 - 0.06 x10E9/L 02/12/2019 3:56 AM CDT [facility] nRBC Auto 0 /100 WBC 02/12/2019 3:56 AM T [facility] Blood BLOOD SPECIMEN / Unknown Lab Venipuncture / Unknown 02/12/2019 3:15 AM CDT 02/12/2019 3:44 AM CDT Blaire Meek MD LAB - HEMATOLOGY ORD ERABLES [facility] [address] [place] [address] * PT-INR (02/11/2019 2:34 PM CDT) PT 11.0 9.5 - 11.6 sec 02/11/2019 3:04 PM CDT [facility] INR 1.0 0.9 - 1.1 02/11/2019 3:04 PM CDT [facility] Blood BLOOD SPECIMEN / Unknown Lab Venipuncture / Unknown 02/11/2019 2:34 PM CDT 02/11/2019 2:52 PM CDT Narrative [facility] - 02/11/2019 3:04 PM CDT Conventional Warfarin Anticoagulant Therapy: INR Reference Range: ??2.0-3.0 Intensive Warfarin Anticoagulant Therapy: INR Reference Range: ? 2.5-3.5 Blaire Meek MD LAB - COAGULATION OR DERABLES [facility] [address] [place] [address] * (ABNORMAL) BASIC METABOLIC PANEL (CALCIUM TOTAL) (02/11/2019 2:42 AM CDT) Glucose 113(H) 74 - 106 mg/dL 02/11/2019 4:37 AM CDT [facility] Sodium 137 136 - 145 mmol/L 02/11/2019 4:37 AM CDT [facility] Potassium 3.5 3.5 - 5.1 mmol/L 02/11/2019 4:37 AM CDT [facility] Chloride 101 98 - 107 mmol/L 02/11/2019 4:37 AM CDT [facility] CO2 27 23 - 31 mmol/L 02/11/2019 4:37 AM T [facility] Calcium 9.0 8.4 - 10.2 mg/dL 02/11/2019 4:37 [facility] Anion Gap 9 8 - 16 mmol/L 02/11/2019 4:37 AM CDT [facility] BUN 21 8.4 - 25.7 mg/dL 02/11/2019 4:37 AM CDT [facility] Creatinine 1.00 0.73 - 1.18 mg/dL 02/11/2019 4:37 AM CDT [facility] eGFR by MDRD >60 mL/min/1.7 3m2 02/11/2019 4:37 AM CDT [facility] eGFR by MDRD >60 mL/min/1.7 3m2 02/11/2019 4:37 AM CDT [facility] Blood BLOOD SPECIMEN / Unknown Lab Venipuncture / Unknown 02/11/2019 2:42 AM CDT 02/11/2019 3:51 AM CDT Blaire Meek MD LAB - CHEMISTRY ROYCE KLINE [facility] Organization Address City/State/ZIP Co de Phone Number [facility] [address] [place] [address] * (ABNORMAL) CBC W AUTO DIFFERENTIAL (02/11/2019 2:42 AM CDT) Pathologist [facility] [place] WBC 10.3 4.4 - 10.7 x10E9/L 02/11/2019 4:01 AM [facility] WBC Corrected 02/11/2019 4:01 AM [facility] RBC 2.87(L) 3.80 - 5.40 x10E12/L 02/11/2019 4:01 AM [facility] Hemoglobin 8.0(L) 12.0 - 17.6 gm/dL 02/11/2019 4:01 AM [facility] Hematocrit 26.4(L) 35.2 - 51.7 % 02/11/2019 4:01 AM [facility] MCV 92.0 80.7 - 98.3 fl 02/11/2019 4:01 AM [facility] MCH 27.9 26.7 - 34.0 pg 02/11/2019 4:01 AM [facility] MCHC 30.3(L) 30.8 - 35.9 gm/dL 02/11/2019 4:01 AM [facility] Platelet Count 277 153 - 416 x10E9/L 02/11/2019 4:01 AM [facility] RDW-CV 16.2(H) 12.1 - 14.9 % 02/11/2019 4:01 AM [facility] MPV 11.7 9.4 - 12.9 fl 02/11/2019 4:01 AM [facility] Neutrophils % 74.0(H) 44.0 - 73.0 % 02/11/2019 4:01 AM [facility] Lymphocytes % 7.8(L) 20.0 - 43.0 % 02/11/2019 4:01 AM [facility] Monocytes % 10.2 5.0 - 13.0 % 02/11/2019 4:01 AM T [facility] Eosinophils % 5.3 0.0 - 6.0 % 02/11/2019 4:01 AM T [facility] Basophils % 0.4 0.0 - 2.0 % 02/11/2019 4:01 AM [facility] Immature Granulocytes 2.3(H) 0 - 1 % 02/11/2019 4:01 AM [facility] Neutrophil Absolute 7.63(H) 2.01 - 7.14 x10E9/L 02/11/2019 4:01 AM [facility] Lymphocytes Absolute 0.81(L) 1.07 - 3.94 x10E9/L 02/11/2019 4:01 AM [facility] Monocytes Absolute 1.05 0.26 - 1.07 x10E9/L 02/11/2019 4:01 AM [facility] Eosinophils Absolute 0.55(H) 0 - 0.47 x10E9/L 02/11/2019 4:01 AM [facility] Basophils Absolute 0.04 0 - 0.08 x10E9/L 02/11/2019 4:01 AM [facility] Immature Granulocytes Absolute 0.24(H) 0.00 - 0.06 x10E9/L 02/11/2019 4:01 AM [facility] nRBC Auto 0 /100 WBC 02/11/2019 4:01 AM [facility] Blood BLOOD SPECIMEN / Unknown Lab Venipuncture / Unknown 02/11/2019 2:42 AM CDT 02/11/2019 3:51 AM CDT Blaire Meek MD LAB - HEMATOLOGY ORD ERABLES [facility] [address], [place] [id number] * (ABNORMAL) BASIC METABOLIC PANEL (CALCIUM TOTAL) (02/10/2019 3:18 AM CDT) [facility] Glucose 108(H) 74 - 106 mg/dL 02/10/2019 5:04 AM [facility] Sodium 139 136 - 145 mmol/L 02/10/2019 5:04 AM CDT [facility] Potassium 3.8 3.5 - 5.1 mmol/L 02/10/2019 5:04 AM CDT [facility] Chloride 105 98 - 107 mmol/L 02/10/2019 5:04 AM CDT [facility] CO2 26 23 - 31 mmol/L 02/10/2019 5:04 AM CDT [facility] Calcium 9.0 8.4 - 10.2 mg/dL 02/10/2019 5:04 AM CDT [facility] Anion Gap 8 8 - 16 mmol/L 02/10/2019 5:04 AM CDT [facility] BUN 20 8.4 - 25.7 mg/dL 02/10/2019 5:04 AM CDT [facility] Creatinine 1.16 0.73 - 1.18 mg/dL 02/10/2019 5:04 AM CDT [facility] eGFR by MDRD >60 mL/min/1.7 3m2 02/10/2019 5:04 AM CDT [facility] eGFR by MDRD >60 mL/min/1.7 3m2 02/10/2019 5:04 AM CDT [facility] Blood BLOOD SPECIMEN / Unknown Lab Venipuncture / Unknown 02/10/2019 3:18 AM CDT 02/10/2019 4:24 AM CDT Blaire Meek MD LAB - CHEMISTRY ROYCE KLINE [facility] Organization Address City/State/ZIP Co de Phone Number [facility] [address] [place] [address] * (ABNORMAL) CBC W AUTO DIFFERENTIAL (02/10/2019 3:18 AM CDT) [facility] WBC 10.1 4.4 - 10.7 x10E9/L 02/10/2019 4:37 AM CDT [facility] WBC Corrected 02/10/2019 4:37 AM CDT [facility] RBC 2.85(L) 3.80 - 5.40 x10E12/L 02/10/2019 4:37 AM CDT [facility] Hemoglobin 7.9(L) 12.0 - 17.6 gm/dL 02/10/2019 4:37 AM CDT [facility] Hematocrit 26.1(L) 35.2 - 51.7 % 02/10/2019 4:37 AM T [facility] MCV 91.6 80.7 - 98.3 fl 02/10/2019 4:37 AM CDT [facility] MCH 27.7 26.7 - 34.0 pg 02/10/2019 4:37 AM [facility] MCHC 30.3(L) 30.8 - 35.9 gm/dL 02/10/2019 4:37 AM [facility] Platelet Count 260 153 - 416 x10E9/L 02/10/2019 4:37 AM [facility] RDW-CV 16.2(H) 12.1 - 14.9 % 02/10/2019 4:37 AM [facility] MPV 11.9 9.4 - 12.9 fl 02/10/2019 4:37 AM [facility] Neutrophils % 76.6(H) 44.0 - 73.0 % 02/10/2019 4:37 AM [facility] Lymphocytes % 7.6(L) 20.0 - 43.0 % 02/10/2019 4:37 AM [facility] Monocytes % 10.5 5.0 - 13.0 % 02/10/2019 4:37 AM [facility] Eosinophils % 3.3 0.0 - 6.0 % 02/10/2019 4:37 AM [facility] Basophils % 0.5 0.0 - 2.0 % 02/10/2019 4:37 AM [facility] Immature Granulocytes 1.5(H) 0 - 1 % 02/10/2019 4:37 AM [facility] Neutrophil Absolute 7.77(H) 2.01 - 7.14 x10E9/L 02/10/2019 4:37 AM [facility] Lymphocytes Absolute 0.77(L) 1.07 - 3.94 x10E9/L 02/10/2019 4:37 AM T [facility] Monocytes Absolute 1.06 0.26 - 1.07 x10E9/L 02/10/2019 4:37 AM [facility] Eosinophils Absolute 0.33 0 - 0.47 x10E9/L 02/10/2019 4:37 AM T [facility] Basophils Absolute 0.05 0 - 0.08 x10E9/L 02/10/2019 4:37 AM [facility] Immature Granulocytes Absolute 0.15(H) 0.00 - 0.06 x10E9/L 02/10/2019 4:37 AM CDT [facility] nRBC Auto 0 /100 WBC 02/10/2019 4:37 AM [facility] Blood BLOOD SPECIMEN / Unknown Lab Venipuncture / Unknown 02/10/2019 3:18 AM CDT 02/10/2019 4:24 AM CDT Blaire Meek MD LAB - HEMATOLOGY ORD ERABLES [facility] [address], [place] [id number] * (ABNORMAL) BASIC METABOLIC PANEL (CALCIUM TOTAL) (02/09/2019 2:30 AM CDT) Glucose 119(H) 74 - 106 mg/dL 02/09/2019 3:04 AM [facility] Sodium 137 136 - 145 mmol/L 02/09/2019 3:04 AM [facility] Potassium 4.3 3.5 - 5.1 mmol/L 02/09/2019 3:04 AM [facility] Chloride 102 98 - 107 mmol/L 02/09/2019 3:04 AM [facility] CO2 25 23 - 31 mmol/L 02/09/2019 3:04 AM [facility] Calcium 8.9 8.4 - 10.2 mg/dL 02/09/2019 3:04 AM [facility] Anion Gap 10 8 - 16 mmol/L 02/09/2019 3:04 AM [facility] BUN 20 8.4 - 25.7 mg/dL 02/09/2019 3:04 AM [facility] Creatinine 1.23(H) 0.73 - 1.18 mg/dL 02/09/2019 3:04 AM [facility] eGFR by MDRD 58 mL/min/1.7 3m2 02/09/2019 3:04 AM [facility] eGFR by MDRD >60 mL/min/1.7 3m2 02/09/2019 3:04 AM [facility] Blood BLOOD SPECIMEN / Unknown Lab Venipuncture / Unknown 02/09/2019 2:30 AM CDT 02/09/2019 2:46 AM CDT Blaire Meek MD LAB - CHEMISTRY ROYCE KLINE [facility] [address] [place] [address] * (ABNORMAL) CBC W AUTO DIFFERENTIAL (02/09/2019 2:30 AM CDT) WBC 11.7(H) 4.4 - 10.7 x10E9/L 02/09/2019 2:50 AM CDT [facility] WBC Corrected 02/09/2019 2:50 AM CDT [facility] RBC 2.97(L) 3.80 - 5.40 x10E12/L 02/09/2019 2:50 AM CDT [facility] Hemoglobin 8.3(L) 12.0 - 17.6 gm/dL 02/09/2019 2:50 AM CDT [facility] Hematocrit 27.5(L) 35.2 - 51.7 % 02/09/2019 2:50 AM CDT [facility] MCV 92.6 80.7 - 98.3 fl 02/09/2019 2:50 AM CDT [facility] MCH 27.9 26.7 - 34.0 pg 02/09/2019 2:50 AM CDT [facility] MCHC 30.2(L) 30.8 - 35.9 gm/dL 02/09/2019 2:50 AM CDT [facility] Platelet Count 282 153 - 416 x10E9/L 02/09/2019 2:50 AM CDT [facility] RDW-CV 15.7(H) 12.1 - 14.9 % 02/09/2019 2:50 AM CDT [facility] MPV 11.2 9.4 - 12.9 fl 02/09/2019 2:50 AM CDT [facility] Neutrophils % 85.8(H) 44.0 - 73.0 % 02/09/2019 2:50 AM CDT [facility] Lymphocytes % 4.8(L) 20.0 - 43.0 % 02/09/2019 2:50 AM CDT [facility] Monocytes % 8.2 5.0 - 13.0 % 02/09/2019 2:50 AM CDT [facility] Eosinophils % 0.1 0.0 - 6.0 % 02/09/2019 2:50 AM CDT [facility] Basophils % 0.2 0.0 - 2.0 % 02/09/2019 2:50 AM CDT [facility] Immature Granulocytes 0.9 0 - 1 % 02/09/2019 2:50 AM CDT [facility] Neutrophil Absolute 10.01(H) 2.01 - 7.14 x10E9/L 02/09/2019 2:50 AM CDT [facility] Lymphocytes Absolute 0.56(L) 1.07 - 3.94 x10E9/L 02/09/2019 2:50 AM CDT [facility] Monocytes Absolute 0.95 0.26 - 1.07 x10E9/L 02/09/2019 2:50 AM CDT [facility] Eosinophils Absolute 0.01 0 - 0.47 x10E9/L 02/09/2019 2:50 AM CDT [facility] Basophils Absolute 0.02 0 - 0.08 x10E9/L 02/09/2019 2:50 AM CDT [facility] Immature Granulocytes Absolute 0.10(H) 0.00 - 0.06 x10E9/L 02/09/2019 2:50 AM CDT [facility] nRBC Auto 0 /100 WBC 02/09/2019 2:50 AM CDT [facility] Blood BLOOD SPECIMEN / Unknown Lab Venipuncture / Unknown 02/09/2019 2:30 AM CDT 02/09/2019 2:45 AM CDT Blaire Meek MD LAB - HEMATOLOGY ORD ERABLES [facility] [address] [place] [address] * TYPE + SCREEN PANEL (02/08/2019 8:57 AM CDT) ABO A 02/08/2019 10:09 AM CDT [facility] Rh Type Positive 02/08/2019 10:09 AM CDT [facility] Comment:History checked. Antibody Screen Negative 02/08/2019 10:09 AM CDT [facility] Blood Bank BLOOD SPECIMEN / Unknown Lab Venipuncture / Unknown 02/08/2019 8:57 AM CDT 02/08/2019 9:40 AM CDT Alberto Shell MD LAB - BLOOD BA NK ORDERABLES [facility] [address] [phone] * (ABNORMAL) BASIC METABOLIC PANEL (CALCIUM TOTAL) (02/08/2019 2:56 AM CDT) [facility] Glucose 90 74 - 106 mg/dL 02/08/2019 4:44 AM [facility] Sodium 137 136 - 145 mmol/L 02/08/2019 4:44 AM [facility] Potassium 3.8 3.5 - 5.1 mmol/L 02/08/2019 4:44 AM [facility] Chloride 103 98 - 107 mmol/L 02/08/2019 4:44 AM T [facility] CO2 27 23 - 31 mmol/L 02/08/2019 4:44 AM [facility] Calcium 9.3 8.4 - 10.2 mg/dL 02/08/2019 4:44 AM [facility] Anion Gap 7(L) 8 - 16 mmol/L 02/08/2019 4:44 AM T [facility] BUN 20 8.4 - 25.7 mg/dL 02/08/2019 4:44 AM T [facility] Creatinine 1.17 0.73 - 1.18 mg/dL 02/08/2019 4:44 AM T [facility] eGFR by MDRD >60 mL/min/1.7 3m2 02/08/2019 4:44 AM T [facility] eGFR by MDRD >60 mL/min/1.7 3m2 02/08/2019 4:44 AM T [facility] Blood BLOOD SPECIMEN / Unknown Lab Venipuncture / Unknown 02/08/2019 2:56 AM CDT 02/08/2019 3:55 AM CDT Blaire Meek MD LAB - CHEMISTRY ROYCE KLINE [facility] [address] [place] [address] * (ABNORMAL) CBC W AUTO DIFFERENTIAL (02/08/2019 2:56 AM CDT) WBC 8.9 4.4 - 10.7 x10E9/L 02/08/2019 4:17 AM CDT [facility] WBC Corrected 02/08/2019 4:17 AM CDT [facility] RBC 3.35(L) 3.80 - 5.40 x10E12/L 02/08/2019 4:17 AM CDT [facility] Hemoglobin 8.9(L) 12.0 - 17.6 gm/dL 02/08/2019 4:17 AM CDT [facility] Hematocrit 30.8(L) 35.2 - 51.7 % 02/08/2019 4:17 AM CDT [facility] MCV 91.9 80.7 - 98.3 fl 02/08/2019 4:17 AM CDT [facility] MCH 26.6(L) 26.7 - 34.0 pg 02/08/2019 4:17 AM CDT [facility] MCHC 28.9(L) 30.8 - 35.9 gm/dL 02/08/2019 4:17 AM CDT [facility] Platelet Count 241 153 - 416 x10E9/L 02/08/2019 4:17 AM CDT [facility] RDW-CV 15.6(H) 12.1 - 14.9 % 02/08/2019 4:17 AM CDT [facility] MPV 12.1 9.4 - 12.9 fl 02/08/2019 4:17 AM CDT [facility] Neutrophils % 73.2(H) 44.0 - 73.0 % 02/08/2019 4:17 AM CDT [facility] Lymphocytes % 7.9(L) 20.0 - 43.0 % 02/08/2019 4:17 AM CDT [facility] Monocytes % 10.6 5.0 - 13.0 % 02/08/2019 4:17 AM CDT [facility] Eosinophils % 6.7(H) 0.0 - 6.0 % 02/08/2019 4:17 AM CDT [facility] Basophils % 0.7 0.0 - 2.0 % 02/08/2019 4:17 AM [facility] Immature Granulocytes 0.9 0 - 1 % 02/08/2019 4:17 AM T [facility] Neutrophil Absolute 6.49 2.01 - 7.14 x10E9/L 02/08/2019 4:17 AM [facility] Lymphocytes Absolute 0.70(L) 1.07 - 3.94 x10E9/L 02/08/2019 4:17 AM T [facility] Monocytes Absolute 0.94 0.26 - 1.07 x10E9/L 02/08/2019 4:17 AM [facility] Eosinophils Absolute 0.59(H) 0 - 0.47 x10E9/L 02/08/2019 4:17 AM [facility] Basophils Absolute 0.06 0 - 0.08 x10E9/L 02/08/2019 4:17 AM [facility] Immature Granulocytes Absolute 0.08(H) 0.00 - 0.06 x10E9/L 02/08/2019 4:17 AM [facility] nRBC Auto 0 /100 WBC 02/08/2019 4:17 AM [facility] Blood BLOOD SPECIMEN / Unknown Lab Venipuncture / Unknown 02/08/2019 2:56 AM CDT 02/08/2019 3:55 AM CDT Blaire Meek MD LAB - HEMATOLOGY ORD ERABLES [facility] [address] [place] [address] * SLIDE SCAN HEMATOLOGY (02/07/2019 4:09 AM CDT) Platelet Estimation Adequate platelets Normal, Adequate platelets 02/07/2019 6:45 AM T [facility] Comment:Platelet clumping no jordan upon slide review Blood BLOOD SPECIMEN / Unknown Lab Venipuncture / Unknown 02/07/2019 4:09 AM CDT 02/07/2019 5:15 AM CDT Michelle Pratt MD LAB - HEMATOLOGY OR DERABLES [facility] [address] [place] [address] * (ABNORMAL) CBC W AUTO DIFFERENTIAL (02/07/2019 4:09 AM CDT) WBC 10.0 4.4 - 10.7 x10E9/L 02/07/2019 5:59 AM CDT [facility] WBC Corrected 02/07/2019 5:59 AM CDT [facility] RBC 2.96(L) 3.80 - 5.40 x10E12/L 02/07/2019 5:59 AM CDT [facility] Hemoglobin 8.0(L) 12.0 - 17.6 gm/dL 02/07/2019 5:59 AM CDT [facility] Hematocrit 27.5(L) 35.2 - 51.7 % 02/07/2019 5:59 AM CDT [facility] MCV 92.9 80.7 - 98.3 fl 02/07/2019 5:59 AM CDT [facility] MCH 27.0 26.7 - 34.0 pg 02/07/2019 5:59 AM CDT [facility] MCHC 29.1(L) 30.8 - 35.9 gm/dL 02/07/2019 5:59 AM CDT [facility] Platelet Count 176 153 - 416 x10E9/L 02/07/2019 5:59 AM CDT [facility] RDW-CV 15.7(H) 12.1 - 14.9 % 02/07/2019 5:59 AM CDT [facility] MPV 13.1(H) 9.4 - 12.9 fl 02/07/2019 5:59 AM CDT [facility] Neutrophils % 79.4(H) 44.0 - 73.0 % 02/07/2019 5:59 AM CDT [facility] Lymphocytes % 5.0(L) 20.0 - 43.0 % 02/07/2019 5:59 AM CDT [facility] Monocytes % 8.6 5.0 - 13.0 % 02/07/2019 5:59 AM CDT [facility] Eosinophils % 5.7 0.0 - 6.0 % 02/07/2019 5:59 AM CDT [facility] Basophils % 0.6 0.0 - 2.0 % 02/07/2019 5:59 AM CDT [facility] Immature Granulocytes 0.7 0 - 1 % 02/07/2019 5:59 AM CDT [facility] Neutrophil Absolute 7.97(H) 2.01 - 7.14 x10E9/L 02/07/2019 5:59 AM CDT [facility] Lymphocytes Absolute 0.50(L) 1.07 - 3.94 x10E9/L 02/07/2019 5:59 AM CDT [facility] Monocytes Absolute 0.86 0.26 - 1.07 x10E9/L 02/07/2019 5:59 AM CDT [facility] Eosinophils Absolute 0.57(H) 0 - 0.47 x10E9/L 02/07/2019 5:59 AM CDT [facility] Basophils Absolute 0.06 0 - 0.08 x10E9/L 02/07/2019 5:59 AM CDT [facility] Immature Granulocytes Absolute 0.07(H) 0.00 - 0.06 x10E9/L 02/07/2019 5:59 AM CDT [facility] nRBC Auto 0 /100 WBC 02/07/2019 5:59 AM CDT [facility] Blood BLOOD SPECIMEN / Unknown Lab Venipuncture / Unknown 02/07/2019 4:09 AM CDT 02/07/2019 5:15 AM CDT Michelle Pratt MD LAB - HEMATOLOGY OR DERABLES Performing Organization Address City/State/[facility] Co de Phone Number [facility] [address] [place] [address] * (ABNORMAL) BASIC METABOLIC PANEL (CALCIUM TOTAL) (02/07/2019 4:09 AM CDT) Glucose 92 74 - 106 mg/dL 02/07/2019 6:13 AM CDT [facility] Sodium 135(L) 136 - 145 mmol/L 02/07/2019 6:13 AM CDT [facility] Potassium 4.3 3.5 - 5.1 mmol/L 02/07/2019 6:13 AM CDT [facility] Chloride 104 98 - 107 mmol/L 02/07/2019 6:13 AM CDT [facility] CO2 23 23 - 31 mmol/L 02/07/2019 6:13 AM CDT [facility] Calcium 9.0 8.4 - 10.2 mg/dL 02/07/2019 6:13 AM CDT [facility] Anion Gap 8 8 - 16 mmol/L 02/07/2019 6:13 AM CDT [facility] BUN 17 8.4 - 25.7 mg/dL 02/07/2019 6:13 AM CDT [facility] Creatinine 1.20(H) 0.73 - 1.18 mg/dL 02/07/2019 6:13 AM CDT [facility] eGFR by MDRD 60 mL/min/1.7 3m2 02/07/2019 6:13 AM CDT [facility] eGFR by MDRD >60 mL/min/1.7 3m2 02/07/2019 6:13 AM CDT [facility] Blood BLOOD SPECIMEN / Unknown Lab Venipuncture / Unknown 02/07/2019 4:09 AM CDT 02/07/2019 5:15 AM CDT Michelle Pratt MD LAB - CHEMISTRY ORD SP Performing Organization Address City/[facility]/ZIP Co de Phone Number [facility] [address] [place], [place] [phone] * VANCOMYCIN LEVEL RANDOM (02/07/2019 4:09 AM CDT) Pathologist [facility] Vancomycin Random 20.9 ug/mL 02/07/2019 6:27 AM CDT [facility] Blood BLOOD SPECIMEN / Unknown Lab Venipuncture / Unknown 02/07/2019 4:09 AM CDT 02/07/2019 5:15 AM CDT Narrative [facility] - 02/07/2019 6:27 AM CDT No reference range available for random Vancomycin levels. All results interpreted by ordering physician. Yasmany Oh MD LAB - CHEMISTRY ROYCE KLINE [facility] [address] [place], [place] [id number] * (ABNORMAL) CBC W AUTO DIFFERENTIAL (02/06/2019 4:19 AM CDT) WBC 9.1 4.4 - 10.7 x10E9/L 02/06/2019 4:53 AM CDT [facility] WBC Corrected 02/06/2019 4:53 AM CDT [facility] RBC 2.94(L) 3.80 - 5.40 x10E12/L 02/06/2019 4:53 AM CDT [facility] Hemoglobin 7.9(L) 12.0 - 17.6 gm/dL 02/06/2019 4:53 AM CDT [facility] Hematocrit 27.5(L) 35.2 - 51.7 % 02/06/2019 4:53 AM CDT [facility] MCV 93.5 80.7 - 98.3 fl 02/06/2019 4:53 AM CDT [facility] MCH 26.9 26.7 - 34.0 pg 02/06/2019 4:53 AM CDT [facility] MCHC 28.7(L) 30.8 - 35.9 gm/dL 02/06/2019 4:53 AM CDT [facility] Platelet Count 189 153 - 416 x10E9/L 02/06/2019 4:53 AM CDT [facility] RDW-CV 15.8(H) 12.1 - 14.9 % 02/06/2019 4:53 AM CDT [facility] MPV 12.1 9.4 - 12.9 fl 02/06/2019 4:53 AM CDT [facility] Neutrophils % 73.8(H) 44.0 - 73.0 % 02/06/2019 4:53 AM CDT [facility] Lymphocytes % 5.9(L) 20.0 - 43.0 % 02/06/2019 4:53 AM CDT [facility] Monocytes % 10.9 5.0 - 13.0 % 02/06/2019 4:53 AM CDT [facility] Eosinophils % 8.2(H) 0.0 - 6.0 % 02/06/2019 4:53 AM CDT [facility] Basophils % 0.4 0.0 - 2.0 % 02/06/2019 4:53 AM CDT [facility] Immature Granulocytes 0.8 0 - 1 % 02/06/2019 4:53 AM CDT [facility] Neutrophil Absolute 6.68 2.01 - 7.14 x10E9/L 02/06/2019 4:53 AM CDT [facility] Lymphocytes Absolute 0.53(L) 1.07 - 3.94 x10E9/L 02/06/2019 4:53 AM CDT [facility] Monocytes Absolute 0.99 0.26 - 1.07 x10E9/L 02/06/2019 4:53 AM CDT [facility] Eosinophils Absolute 0.74(H) 0 - 0.47 x10E9/L 02/06/2019 4:53 AM CDT [facility] Basophils Absolute 0.04 0 - 0.08 x10E9/L 02/06/2019 4:53 AM CDT [facility] Immature Granulocytes Absolute 0.07(H) 0.00 - 0.06 x10E9/L 02/06/2019 4:53 AM CDT [facility] nRBC Auto 0 /100 WBC 02/06/2019 4:53 AM CDT [facility] Blood BLOOD SPECIMEN / Unknown Lab Venipuncture / Unknown 02/06/2019 4:19 AM CDT 02/06/2019 4:42 AM CDT Michelle Pratt MD LAB - HEMATOLOGY OR DERABLES Performing Organization Address City/State/[facility] Co de Phone Number [facility] [address] [place] [address] * (ABNORMAL) BASIC METABOLIC PANEL (CALCIUM TOTAL) (02/06/2019 4:19 AM CDT) Glucose 110(H) 74 - 106 mg/dL 02/06/2019 5:24 AM CDT [facility] Sodium 136 136 - 145 mmol/L 02/06/2019 5:24 AM CDT [facility] Potassium 4.7 3.5 - 5.1 mmol/L 02/06/2019 5:24 AM CDT [facility] Chloride 106 98 - 107 mmol/L 02/06/2019 5:24 AM CDT [facility] CO2 23 23 - 31 mmol/L 02/06/2019 5:24 AM CDT [facility] Calcium 8.8 8.4 - 10.2 mg/dL 02/06/2019 5:24 AM CDT [facility] Anion Gap 7(L) 8 - 16 mmol/L 02/06/2019 5:24 AM CDT [facility] BUN 17 8.4 - 25.7 mg/dL 02/06/2019 5:24 AM CDT [facility] Creatinine 1.23(H) 0.73 - 1.18 mg/dL 02/06/2019 5:24 AM CDT [facility] eGFR by MDRD 58 mL/min/1.7 3m2 02/06/2019 5:24 AM CDT [facility] eGFR by MDRD >60 mL/min/1.7 3m2 02/06/2019 5:24 AM CDT [facility] Blood BLOOD SPECIMEN / Unknown Lab Venipuncture / Unknown 02/06/2019 4:19 AM CDT 02/06/2019 4:41 AM CDT Michelle Pratt MD LAB - CHEMISTRY ORD ERABLES Performing Organization Address [facility] Co de Phone Number [facility] [address] [place] [phone] * VANCOMYCIN LEVEL RANDOM (02/06/2019 4:19 AM CDT) Vancomycin Random 19.2 ug/mL 02/06/2019 5:26 AM CDT [facility] Blood BLOOD SPECIMEN / Unknown Lab Venipuncture / Unknown 02/06/2019 4:19 AM CDT 02/06/2019 4:41 AM CDT Narrative [facility] - 02/06/2019 5:26 AM CDT No reference range available for random Vancomycin levels. All results interpreted by ordering physician. Michelle Pratt MD LAB - CHEMISTRY ORD ERABLES Performing Organization Address City/[facility] Co de Phone Number [facility] [address] [place] [phone] * (ABNORMAL) CBC W AUTO DIFFERENTIAL (02/05/2019 2:38 AM CDT) WBC 10.6 4.4 - 10.7 x10E9/L 02/05/2019 3:27 AM CDT [facility] WBC Corrected 02/05/2019 3:27 AM CDT [facility] RBC 3.08(L) 3.80 - 5.40 x10E12/L 02/05/2019 3:27 AM [facility] Hemoglobin 8.5(L) 12.0 - 17.6 gm/dL 02/05/2019 3:27 AM [facility] Hematocrit 27.9(L) 35.2 - 51.7 % 02/05/2019 3:27 AM [facility] MCV 90.6 80.7 - 98.3 fl 02/05/2019 3:27 AM [facility] MCH 27.6 26.7 - 34.0 pg 02/05/2019 3:27 AM [facility] MCHC 30.5(L) 30.8 - 35.9 gm/dL 02/05/2019 3:27 AM [facility] Platelet Count 220 153 - 416 x10E9/L 02/05/2019 3:27 AM [facility] RDW-CV 15.9(H) 12.1 - 14.9 % 02/05/2019 3:27 AM [facility] MPV 12.0 9.4 - 12.9 fl 02/05/2019 3:27 AM [facility] Neutrophils % 75.3(H) 44.0 - 73.0 % 02/05/2019 3:27 AM [facility] Lymphocytes % 5.2(L) 20.0 - 43.0 % 02/05/2019 3:27 AM [facility] Monocytes % 10.2 5.0 - 13.0 % 02/05/2019 3:27 AM [facility] Eosinophils % 8.5(H) 0.0 - 6.0 % 02/05/2019 3:27 AM [facility] Basophils % 0.2 0.0 - 2.0 % 02/05/2019 3:27 AM [facility] Immature Granulocytes 0.6 0 - 1 % 02/05/2019 3:27 AM [facility] Neutrophil Absolute 7.96(H) 2.01 - 7.14 x10E9/L 02/05/2019 3:27 AM [facility] Lymphocytes Absolute 0.55(L) 1.07 - 3.94 x10E9/L 02/05/2019 3:27 AM [facility] Monocytes Absolute 1.08(H) 0.26 - 1.07 x10E9/L 02/05/2019 3:27 AM CDT [facility] Eosinophils Absolute 0.90(H) 0 - 0.47 x10E9/L 02/05/2019 3:27 AM CDT [facility] Basophils Absolute 0.02 0 - 0.08 x10E9/L 02/05/2019 3:27 AM CDT [facility] Immature Granulocytes Absolute 0.06 0.00 - 0.06 x10E9/L 02/05/2019 3:27 AM CDT [facility] nRBC Auto 0 /100 WBC 02/05/2019 3:27 AM CDT [facility] Blood BLOOD SPECIMEN / Unknown Lab Venipuncture / Unknown 02/05/2019 2:38 AM CDT 02/05/2019 3:14 AM CDT Michelle Pratt MD LAB - HEMATOLOGY OR DERABLES Performing Organization Address City/State/[facility] Co de Phone Number [facility] [address], [place] [phone] * (ABNORMAL) BASIC METABOLIC PANEL (CALCIUM TOTAL) (02/05/2019 2:38 AM CDT) Glucose 118(H) 74 - 106 mg/dL 02/05/2019 3:41 AM CDT [facility] Sodium 136 136 - 145 mmol/L 02/05/2019 3:41 AM CDT [facility] Potassium 4.2 3.5 - 5.1 mmol/L 02/05/2019 3:41 AM CDT [facility] Chloride 107 98 - 107 mmol/L 02/05/2019 3:41 AM CDT [facility] CO2 22(L) 23 - 31 mmol/L 02/05/2019 3:41 AM CDT [facility] Calcium 8.6 8.4 - 10.2 mg/dL 02/05/2019 3:41 AM CDT [facility] Anion Gap 7(L) 8 - 16 mmol/L 02/05/2019 3:41 AM CDT [facility] BUN 20 8.4 - 25.7 mg/dL 02/05/2019 3:41 AM CDT [facility] Creatinine 1.24(H) 0.73 - 1.18 mg/dL 02/05/2019 3:41 AM CDT [facility] eGFR by MDRD 58 mL/min/1.7 3m2 02/05/2019 3:41 AM CDT [facility] eGFR by MDRD >60 mL/min/1.7 3m2 02/05/2019 3:41 AM CDT [facility] Blood BLOOD SPECIMEN / Unknown Lab Venipuncture / Unknown 02/05/2019 2:38 AM CDT 02/05/2019 3:14 AM CDT Michelle Pratt MD LAB - CHEMISTRY ORD ERAMAMTA Performing Organization Address [facility]/ZIP Co de Phone Number [facility] [address] [place] [address] * VANCOMYCIN LEVEL RANDOM (02/05/2019 2:38 AM CDT) Vancomycin Random 21.8 ug/mL 02/05/2019 3:47 AM CDT [facility] Blood BLOOD SPECIMEN / Unknown Lab Venipuncture / Unknown 02/05/2019 2:38 AM CDT 02/05/2019 3:14 AM CDT Narrative [facility] - 02/05/2019 3:47 AM CDT No reference range available for random Vancomycin levels. All results interpreted by ordering physician. Yasmany Oh MD LAB - CHEMISTRY ROYCE KLINE Performing Organization Address [facility]/ZIP Co de Phone Number [facility] [address] [place] [address] * GLUCOSE - POINT OF CARE (02/04/2019 5:16 PM CDT) Glucose WB/POC 101 70 - 106 mg/dL 02/05/2019 7:00 AM CDT [facility] Specimen Type Arterial/C apillary 02/05/2019 7:00 AM CDT [facility] Blood BLOOD SPECIMEN / Unknown 02/04/2019 5:16 PM CDT 02/05/2019 6:59 AM CDT Michelle Pratt MD LAB - POINT OF CARE ORDERABLES Performing Organization Address City/[facility]/ZIP Co de Phone Number [facility] [address] [place] [address] * (ABNORMAL) VANCOMYCIN LEVEL TROUGH (02/04/2019 2:12 PM CDT) [facility] Vancomycin Trough 28.6(HH) 10.0 - 20.0 ug/mL 02/04/2019 2:35 PM CDT [facility] Blood BLOOD SPECIMEN / Unknown Lab Venipuncture / Unknown 02/04/2019 2:12 PM CDT 02/04/2019 2:16 PM CDT Yasmany Oh MD LAB - CHEMISTRY ROYCE KLINE Performing Organization Address [facility] Co de Phone Number [facility] [address] [place] [phone] * (ABNORMAL) GLUCOSE - POINT OF CARE (02/04/2019 12:09 PM CDT) [facility] Glucose WB/POC 111(H) 70 - 106 mg/dL 02/04/2019 2:47 PM CDT [facility] Specimen Type Arterial/C apillary 02/04/2019 2:47 PM CDT [facility] Blood BLOOD SPECIMEN / Unknown 02/04/2019 12:09 PM CDT 02/04/2019 2:46 PM CDT Michelle Pratt MD LAB - POINT OF CARE ORDERABLES Performing Organization Address [facility]/ZIP Co de Phone Number [facility] [address] [place] [phone] * (ABNORMAL) CULTURE WOUND+GRAM STAIN (02/04/2019 11:29 AM CDT) [facility] Culture Rare Staphylococcus aureus methicillin-resistan t [...] AM CDT 02/04/2019 12:01 PM CDT Narrative [facility] - 02/06/2019 11:57 AM CDT [...] Larry Alexander MD LAB - MICROBIOLOGY ORDERABLES [facility] [address] [place] [address], [facility] [phone] * CULTURE ANAEROBE (02/04/2019 11:29 AM CDT) Culture No anaerobic organisms isolated UMESH 02/09/2019 11:40 AM T [facility] Microbiology [place]IRE [place] REG[place] / Unknown Collection / Unknown 02/04/2019 11:29 AM CDT 02/04/2019 12:08 PM CDT Narrative [facility] - 02/09/2019 11:40 AM CDT Surgical Description: Right Hip Larry Alexander MD LAB - MICROBIOLOGY ORDERABLES [facility] [address] [place] [address], [facility] [phone] * (ABNORMAL) CULTURE TISSUE+GRAM STAIN (02/04/2019 11:29 AM CDT) Culture Rare Staphylococcus aureus methicillin-resistan t (MRSA)(AA) UMESH 02/06/2019 11:37 AM CDT [facility] Gram Stain Moderate Polymorphonuclear cells 02/06/2019 11:37 AM CDT [facility] Gram Stain Heavy Red blood cells 02/06/2019 11:37 AM CDT [facility] Gram Stain No organisms seen 019 11:[address] [facility] MICROBIOLOGY Microbiology ENTIRE HIP REGION / Unknown Collection / Unknown 02/04/2019 11:29 AM CDT 02/04/2019 12:08 PM CDT Narrative [facility] - 02/06/2019 11:37 AM CDT [...] LAB - MICROBIOLOGY ORDERABLES Performing Organization Address [facility]/ZIP Co de Phone Number [facility] [address] [place] [address], [facility] [phone] * CULTURE ANAEROBE (02/04/2019 11:29 AM CDT) Pathologist [facility] Culture No anaerobic organisms isolated UMESH 02/09/2019 11:40 AM CDT [facility] MICRO[facility] Microbiology ENTIRE HIP REG[place] / Unknown Collection / Unknown 02/04/2019 11:29 AM CDT 02/04/2019 12:08 PM CDT Narrative [facility]CRO[facility] - 02/09/2019 11:40 AM CDT Surgical Description: Right Hip Larry Alexander MD LAB - MICROBIOLOGY ORDERABLES Performing Organization Address [facility] Co de Phone Number [facility] [address] [place] [address], [facility] [phone] * GLUCOSE - POINT OF CARE (02/04/2019 8:17 AM CDT) [facility] Glucose WB/POC 101 70 - 106 mg/dL 02/04/2019 8:48 AM CDT [facility] Specimen Type Arterial/C apillary 02/04/2019 8:48 AM CDT [facility] Blood BLOOD SPECIMEN / Unknown 02/04/2019 8:17 AM CDT 02/04/2019 8:48 AM CDT Michelle Pratt MD LAB - POINT OF CARE ORDERABLES Performing Organization Address City/[facility]/ZIP Co de Phone Number [facility] [address] [place] [address] * PT PTT PANEL (02/04/2019 7:37 AM CDT) Pathologist [facility] PT 11.1 9.5 - 11.6 sec 02/04/2019 9:12 AM CDT [facility] INR 1.0 0.9 - 1.1 02/04/2019 9:12 AM CDT [facility] PTT 26.4 21.0 - 32.0 sec 02/04/2019 9:12 AM CDT [facility] Blood BLOOD SPECIMEN / Unknown 02/04/2019 7:37 AM CDT 02/04/2019 9:03 AM CDT [facility] - 02/04/2019 9:12 AM CDT Conventional Warfarin Anticoagulant Therapy: INR Reference Range: ??2.0-3.0 Intensive Warfarin Anticoagulant Therapy: INR Reference Range: ? 2.5-3.5 Heparin Therapeutic Range for PTT: 50.5 - 74.3 seconds. Michelle Pratt MD LAB - COAGULATION O RDERABLES [facility] [address] [place] [address] * (ABNORMAL) CBC W/O DIFFERENTIAL (02/04/2019 7:37 AM CDT) WBC 10.6 4.4 - 10.7 x10E9/L 02/04/2019 8:35 AM CDT [facility] RBC 3.26(L) 3.80 - 5.40 x10E12/L 02/04/2019 8:35 AM CDT [facility] Hemoglobin 8.7(L) 12.0 - 17.6 gm/dL 02/04/2019 8:35 AM CDT [facility] Hematocrit 30.0(L) 35.2 - 51.7 % 02/04/2019 8:35 AM CDT [facility] MCV 92.0 80.7 - 98.3 fl 02/04/2019 8:35 AM CDT [facility] MCH 26.7 26.7 - 34.0 pg 02/04/2019 8:35 AM CDT [facility] MCHC 29.0(L) 30.8 - 35.9 gm/dL 02/04/2019 8:35 AM CDT [facility] Platelet Count 212 153 - 416 x10E9/L 02/04/2019 8:35 AM CDT [facility] RDW-CV 15.9(H) 12.1 - 14.9 % 02/04/2019 8:35 AM T [facility] MPV 11.9 9.4 - 12.9 fl 02/04/2019 8:35 AM T [facility] Blood BLOOD SPECIMEN / Unknown Lab Venipuncture / Unknown 02/04/2019 7:37 AM CDT 02/04/2019 8:25 AM CDT Jason Blackburn MD LAB - HEMATOLOGY ORD ERABLES [facility] [address] [place] [address] * (ABNORMAL) URINALYSIS REFLEX MICROSCOPIC REFLEX CULTURE (02/04/2019 6:17 AM CDT) Color UA Yellow Straw, Yellow 02/04/2019 6:43 AM [facility] Clarity UA Cloudy(A) Clear 02/04/2019 6:43 AM [facility] Glucose UA Negative Negative 02/04/2019 6:43 AM [facility] Bilirubin UA Negative Negative 02/04/2019 6:43 AM [facility] Ketone UA Trace(A) Negative 02/04/2019 6:43 AM [facility] Specific [place] UA 1.021 1.005 - 1.030 02/04/2019 6:43 AM [facility] Blood UA Negative Negative 02/04/2019 6:43 AM [facility] pH UA 5.0 5.0 - 8.0 pH 02/04/2019 6:43 AM [facility] Protein UA Negative Negative 02/04/2019 6:43 AM [facility] Urobilinogen UA Negative Negative mg/dL 02/04/2019 6:43 AM [facility] Nitrite UA Negative Negative 02/04/2019 6:43 AM [facility] Leukocyte UA Negative Negative 02/04/2019 6:43 AM [facility] Urine Microscopy Urine microscopy not indicated 02/04/2019 6:43 AM [facility] Reflex Status Culture not indicated 02/04/2019 6:43 AM [facility] Urine URINE SPECIMEN OBTAINED BY CLEAN CATCH PROCEDURE / Unknown Collection / Unknown 02/04/2019 6:17 AM CDT 02/04/2019 6:24 AM CDT Narrative [facility] - 02/04/2019 6:43 AM CDT Ascorbic Acid can cause false negative urine strip tests for blood, glucose, nitrite, and bilirubin. Yasmany Oh MD LAB - URINALYSIS ORD ERABLES Performing Organization Address [facility]/ZIP Co hi Phone Number [facility] [address] [place] [address] * (ABNORMAL) BASIC METABOLIC PANEL (CALCIUM TOTAL) (02/04/2019 2:34 AM CDT) [facility] Glucose 114(H) 74 - 106 mg/dL 02/04/2019 4:13 AM CDT [facility] Sodium 135(L) 136 - 145 mmol/L 02/04/2019 4:13 AM CDT [facility] Potassium 3.7 3.5 - 5.1 mmol/L 02/04/2019 4:13 AM CDT [facility] Chloride 106 98 - 107 mmol/L 02/04/2019 4:13 AM CDT [facility] CO2 21(L) 23 - 31 mmol/L 02/04/2019 4:13 AM CDT [facility] Calcium 8.6 8.4 - 10.2 mg/dL 02/04/2019 4:13 AM T [facility] Anion Gap 8 8 - 16 mmol/L 02/04/2019 4:13 AM CDT [facility] BUN 21 8.4 - 25.7 mg/dL 02/04/2019 4:13 AM CDT [facility] Creatinine 1.13 0.73 - 1.18 mg/dL 02/04/2019 4:13 AM CDT [facility] eGFR by MDRD >60 mL/min/1.7 3m2 02/04/2019 4:13 AM CDT [facility] eGFR by MDRD >60 mL/min/1.7 3m2 02/04/2019 4:13 AM T [facility] Blood BLOOD SPECIMEN / Unknown Lab Venipuncture / Unknown 02/04/2019 2:34 AM CDT 02/04/2019 3:32 AM CDT Michelle Pratt MD LAB - CHEMISTRY ORD ERABLES [facility] [address] [place] [address] * PRETEST TYPE & SCREEN (02/04/2019 2:34 AM CDT) ABO A 02/04/2019 4:07 AM CDT [facility] Rh Type Positive 02/04/2019 4:07 AM CDT [facility] Comment:History checked. Col lect retype. Antibody Screen Negative 02/04/2019 4:07 AM CDT [facility] Blood Bank BLOOD SPECIMEN / Unknown Lab Venipuncture / Unknown 02/04/2019 2:34 AM CDT 02/04/2019 3:34 AM CDT Jeffrey Angelo MD LAB - BLOOD BANK OR DERABLES Performing Organization Address [facility] Co de Phone Number [facility] [address] [place] [address] * (ABNORMAL) GLUCOSE - POINT OF CARE (02/03/2019 8:35 PM CDT) Glucose WB/POC 131(H) 70 - 106 mg/dL 02/03/2019 9:51 PM CDT [facility] Specimen Type Arterial/C apillary 02/03/2019 9:51 PM CDT [facility] Blood BLOOD SPECIMEN / Unknown 02/03/2019 8:35 PM CDT 02/03/2019 9:51 PM CDT Michelle Pratt MD LAB - POINT OF CARE ORDERABLES Performing Organization Address [facility] Co de Phone Number [facility] [address] [place] [address] * (ABNORMAL) GLUCOSE - POINT OF CARE (02/03/2019 5:22 PM CDT) Glucose WB/POC 114(H) 70 - 106 mg/dL 02/03/2019 7:05 PM CDT [facility] Specimen Type Arterial/C apillary 02/03/2019 7:05 PM CDT [facility] Blood BLOOD SPECIMEN / Unknown 02/03/2019 5:22 PM CDT 02/03/2019 7:05 PM CDT Michelle Pratt MD LAB - POINT OF CARE ORDERABLES Performing Organization Address [facility] Co de Phone Number [facility] [address] [place] [address] * EKG 12-LEAD (02/03/2019 4:29 PM CDT) Ventricular Rate 81 BPM [facility] Atrial Rate 166 BPM [facility] QRS Duration ms 92 ms [facility] Q-T Interval ms 372 ms [facility] QTC Calculation (Bezet) 432 ms SM MUSE Calculated R [place] -6 degrees [facility] M[facility] Calculated T [place] 25 degrees [facility] Interpretation EKG ATRIAL FIBRILLATION LOW VOLTAGE QRS SEPTAL INFARCT , AGE UNDETERMINED ABNORMAL ECG Confirmed by DO Campoverde Stephanie ([id number]) on 02/06/2019 9:13:20 AM [facility] 02/03/2019 4:29 PM CDT 02/06/2019 9:13 AM CDT Michelle Pratt MD ECG ORDERABLES Performing Organization Address [facility] de Phone Number [facility] * (ABNORMAL) GLUCOSE - POINT OF CARE (02/03/2019 1:00 PM CDT) Glucose WB/POC 155(H) 70 - 106 mg/dL 02/03/2019 7:05 PM CDT [facility] Specimen Type Arterial/C apillary 02/03/2019 7:05 PM CDT [facility] Blood BLOOD SPECIMEN / Unknown 02/03/2019 1:00 PM CDT 02/03/2019 7:05 PM CDT Michelle Pratt MD LAB - POINT OF CARE ORDERABLES Performing Organization Address [facility] Co de Phone Number [facility] [address] [place] [address] * GLUCOSE - POINT OF CARE (02/03/2019 10:10 AM CDT) Glucose WB/POC 106 70 - 106 mg/dL 02/03/2019 7:05 PM CDT [facility] Specimen Type Arterial/C apillary 02/03/2019 7:05 PM CDT [facility] Blood BLOOD SPECIMEN / Unknown 02/03/2019 10:10 AM CDT 02/03/2019 7:05 PM CDT Michelle Pratt MD LAB - POINT OF CARE ORDERABLES [facility] [address] [place] [address] * XR FEMUR 2 VW RIGHT (02/03/2019 [...] - 2.2 mmol/L 02/03/2019 5:15 AM CDT [facility] Blood BLOOD SPECIMEN / Unknown Lab Venipuncture / Unknown 02/03/2019 4:13 AM CDT 02/03/2019 4:39 AM CDT Yasmany Oh MD LAB - CHEMISTRY ROYCE KLINE Performing Organization Address City/[facility]/ZIP Co de Phone Number [facility] [address] [place] [phone] * HEMOGLOBIN A1C (02/03/2019 1:06 AM CDT) Hemoglobin A1c 5.8 4.0 - 6.1 % 02/03/2019 10:11 AM CDT [facility] Estimated Average Glucose 120 mg/dL 02/03/2019 10:11 AM CDT [facility] Blood BLOOD SPECIMEN / Unknown Lab Venipuncture / Unknown 02/03/2019 1:06 AM CDT 02/03/2019 1:16 AM CDT Michelle Pratt MD LAB - CHEMISTRY RAFFY SNOWDEN [facility] [address] [place] [address] * PT-INR (02/03/2019 1:06 AM CDT) PT 11.3 9.5 - 11.6 sec 02/03/2019 1:36 AM CDT [facility] INR 1.1 0.9 - 1.1 02/03/2019 1:36 AM CDT [facility] Blood BLOOD SPECIMEN / Unknown Lab Venipuncture / Unknown 02/03/2019 1:06 AM CDT 02/03/2019 1:16 AM CDT [facility] - 02/03/2019 1:36 AM CDT Conventional Warfarin Anticoagulant Therapy: INR Reference Range: ??2.0-3.0 Intensive Warfarin Anticoagulant Therapy: INR Reference Range: ? 2.5-3.5 Yasmany Oh MD LAB - COAGULATION OR DERABLES Performing Organization Address City/State/[facility] Co de Phone Number [facility] [address] [place] [address] * (ABNORMAL) COMPREHENSIVE METABOLIC PANEL (02/03/2019 1:06 AM CDT) [facility] Glucose 112(H) 74 - 106 mg/dL 02/03/2019 1:41 AM CDT [facility] Sodium 134(L) 136 - 145 mmol/L 02/03/2019 1:41 AM CDT [facility] Potassium 4.3 3.5 - 5.1 mmol/L 02/03/2019 1:41 AM CDT [facility] Chloride 101 98 - 107 mmol/L 02/03/2019 1:41 AM CDT [facility] CO2 25 23 - 31 mmol/L 02/03/2019 1:41 AM CDT [facility] Calcium 9.5 8.4 - 10.2 mg/dL 02/03/2019 1:41 AM CDT [facility] Anion Gap 8 8 - 16 mmol/L 02/03/2019 1:41 AM CDT [facility] BUN 19 8.4 - 25.7 mg/dL 02/03/2019 1:41 AM CDT [facility] Creatinine 1.22(H) 0.73 - 1.18 mg/dL 02/03/2019 1:41 AM CDT [facility] Alkaline Phosphatase 304(H) 40 - 150 U/L 02/03/2019 1:41 AM CDT [facility] ALT 21 13 - 61 U/L 02/03/2019 1:41 AM CDT [facility] AST 20 5 - 34 U/L 02/03/2019 1:41 AM CDT [facility] Protein Total 7.0 6.4 - 8.3 gm/dL 02/03/2019 1:41 AM CDT [facility] Albumin 3.1(L) 3.2 - 4.6 gm/dL 02/03/2019 1:41 AM CDT [facility] Bilirubin Total 1.0 0.2 - 1.2 mg/dL 02/03/2019 1:41 AM CDT [facility] eGFR by MDRD 59 mL/min/1.7 3m2 02/03/2019 1:41 AM CDT [facility] eGFR by MDRD >60 mL/min/1.7 3m2 02/03/2019 1:41 AM CDT [facility] Blood BLOOD SPECIMEN / Unknown Lab Venipuncture / Unknown 02/03/2019 1:06 AM CDT 02/03/2019 1:16 AM CDT Yasmany Oh MD LAB - [facility] Organization Address City/State/ZIP Co de Phone Number [facility] [address], [place] [phone] * (ABNORMAL) CBC W AUTO DIFFERENTIAL (02/03/2019 1:06 AM CDT) WBC 14.2(H) 4.4 - 10.7 x10E9/L 02/03/2019 1:22 AM CDT [facility] WBC Corrected 02/03/2019 1:22 AM CDT [facility] RBC 3.64(L) 3.80 - 5.40 x10E12/L 02/03/2019 1:22 AM CDT [facility] Hemoglobin 9.9(L) 12.0 - 17.6 gm/dL 02/03/2019 1:22 AM CDT [facility] Hematocrit 32.9(L) 35.2 - 51.7 % 02/03/2019 1:22 AM CDT [facility] MCV 90.4 80.7 - 98.3 fl 02/03/2019 1:22 AM CDT [facility] MCH 27.2 26.7 - 34.0 pg 02/03/2019 1:22 AM CDT [facility] MCHC 30.1(L) 30.8 - 35.9 gm/dL 02/03/2019 1:22 AM CDT [facility] Platelet Count 241 153 - 416 x10E9/L 02/03/2019 1:22 AM CDT [facility] RDW-CV 15.9(H) 12.1 - 14.9 % 02/03/2019 1:22 AM CDT [facility] MPV 12.1 9.4 - 12.9 fl 02/03/2019 1:22 AM CDT [facility] Neutrophils % 79.6(H) 44.0 - 73.0 % 02/03/2019 1:22 AM T [facility] Lymphocytes % 4.7(L) 20.0 - 43.0 % 02/03/2019 1:22 AM [facility] Monocytes % 9.6 5.0 - 13.0 % 02/03/2019 1:22 AM T [facility] Eosinophils % 5.2 0.0 - 6.0 % 02/03/2019 1:22 AM T [facility] Basophils % 0.4 0.0 - 2.0 % 02/03/2019 1:22 AM T [facility] Immature Granulocytes 0.5 0 - 1 % 02/03/2019 1:22 AM [facility] Neutrophil Absolute 11.28(H) 2.01 - 7.14 x10E9/L 02/03/2019 1:22 AM [facility] Lymphocytes Absolute 0.66(L) 1.07 - 3.94 x10E9/L 02/03/2019 1:22 AM T [facility] Monocytes Absolute 1.36(H) 0.26 - 1.07 x10E9/L 02/03/2019 1:22 AM [facility] Eosinophils Absolute 0.73(H) 0 - 0.47 x10E9/L 02/03/2019 1:22 AM [facility] Basophils Absolute 0.05 0 - 0.08 x10E9/L 02/03/2019 1:22 AM [facility] Immature Granulocytes Absolute 0.07(H) 0.00 - 0.06 x10E9/L 02/03/2019 1:22 AM [facility] nRBC Auto 0 /100 WBC 02/03/2019 1:22 AM [facility] Blood BLOOD SPECIMEN / Unknown Lab Venipuncture / Unknown 02/03/2019 1:06 AM CDT 02/03/2019 1:16 AM CDT Yasmany Oh MD LAB - HEMATOLOGY ORD ERABLES [facility] [address] [place] [address] * LACTIC ACID BLOOD (02/03/2019 1:06 AM CDT) Lactic Acid 0.8 0.5 - 2.2 mmol/L 02/03/2019 1:37 AM CDT [facility] Blood BLOOD SPECIMEN / Unknown Lab Venipuncture / Unknown 02/03/2019 1:06 AM CDT 02/03/2019 1:16 AM CDT Yasmany Oh MD LAB - CHEMISTRY ROYCE KLINE Performing Organization Address [facility] de Phone Number [facility] [address] [place] [address] * CULTURE BLOOD (02/02/2019 10:38 PM CDT) Culture No growth day 5 UMESH 02/08/2019 2:31 AM CDT [facility] Blood PERIPHERAL BLOOD / Unknown Lab Venipuncture / Unknown 02/02/2019 10:38 PM CDT 02/02/2019 10:44 PM CDT Yasmany Oh MD LAB - MICROBIOLOGY O RIO Performing Organization Address [facility] de Phone Number [facility] [address] [place] [address], [facility] [phone] * CULTURE BLOOD (02/02/2019 10:38 PM CDT) Culture No growth day 5 UMESH 02/08/2019 2:31 AM CDT [facility] Blood PERIPHERAL BLOOD / Unknown Lab Venipuncture / Unknown 02/02/2019 10:38 PM CDT 02/02/2019 10:44 PM CDT Yasmany Oh MD LAB - MICROBIOLOGY O RDERAMAMTA Performing Organization Address [facility] Co de Phone Number [facility] [address] [place] [address], [facility] [phone] * LACTIC ACID BLOOD (02/02/2019 10:38 PM CDT) Lactic Acid 0.9 0.5 - 2.2 mmol/L 02/02/2019 11:00 PM CDT [facility] Blood BLOOD SPECIMEN / Unknown Lab Venipuncture / Unknown 02/02/2019 10:38 PM CDT 02/02/2019 10:44 PM CDT Yasmany Oh MD LAB - CHEMISTRY ROYCE KLINE [facility] Organization Address City/State/ZIP Co de Phone Number [facility] [address] [place] [address] documented in this encounter Visit Diagnoses Not [...] mL /hr warfarin (COUMADIN) dose per pharmacy [facility] Other, DAILY AT 1700, 365 [...] RCP)1002 ($ Given - Provider: Citlalli Daniels DIGITAL MEDIA SALES CONSULTANT)1549 ($ Given - Provider: Citlalli Daniels DIGITAL MEDIA SALES CONSULTANT)2123 ($ Given - Provider: Lyndsay Kolb DIGITAL MEDIA SALES CONSULTANT) 0224 ($ Given - Provider: Lyndsay Kolb RCP)0820 ($ Given - Provider: Neva Ratliff DIGITAL MEDIA SALES CONSULTANT)1355 ($ Given - Provider: Neva Ratliff RCP)2019 ($ Given - Provider: Dru Magallon DIGITAL MEDIA SALES CONSULTANT) 0107 ($ Given - Provider: Dru Magallon [...] 0820 ($ Given - Provider: Neva Ratliff DIGITAL MEDIA SALES CONSULTANT)2019 ($ Given - Provider: Dru Magallon RCP) 0902 ($ Given - Provider: Citlalli Daniels RCP) clotrimazole (LOTRIMIN AF) 1 % cream Topical, 2 TIMES DAILY, 730 doses, First dose on Tue02/11/19 at 2030, Last dose on Tue02/11/20 at 0900, Apply to groin rash 1027 ($ Given - Provider: Erfain Rojas RN)215 ($ Given - Provider: Chris Carter RN) 09 ($ Given - Provider: Cathy Baker RN)2049 ($ Given - Provider: Chris Carter RN) 103 ($ Given - Provider: Gladsi Pacheco RN) cyanocobalamin (VITAMIN B-12) tablet 500 [...] Augustin RN) warfarin (COUMADIN) dose per pharmacy [facility] Other, DAILY AT 1700, 365 [...] as of this encounter Care Teams Chuck Splitter Relationship Specialty Start Date End Date Briana Medeiros MD [address] [place] [address] PCP - General 02/15/18 02/22/22 documented as of this encounter
--- OUTSIDE RECORDS SUMMARY | 2024-05-25 03:04 | XMS_ITS | Encounter Summary ---
Author Organization [facility] Address [address] [facility] [place] [address] Care Team Providers Care Veneer Sorter Name Role Phone Briana Medeiros MD Primary Care Provider [phone] Encounter Details Date Type Department Care Team (Late st Contact Info) Description 05/16/2018 Orders Only [facility] GI [address] [place] [address] Aldo Vásquez MD [address] [place] [address] Other cirrhosis of liver (HCC) Social History [...] st Contact Info) Description 07/09/2024 12:30 PM CASE MANAGEMENT ASSOCIATE Office Visit [facility] - GI [address] [facility], [place] [address] Twin Miller MD [address] [facility] [address] [place] [address] 09/19/2024 2:00 PM CDT Office Visit [facility] - Orthopedic Surgery [address] [place] [address] Larry Alexander MD [address] [facility] [address] [place] [address] documented as of this encounter Procedures Procedure Name Priority Date/Time Associated Diagnosis Comments MITOCHONDRIAL ANTIBODY SCREEN Routine 06/02/2018 3:03 PM CASE MANAGEMENT ASSOCIATE Other cirrhosis of liver (HCC) documented in this encounter Results * MITOCHONDRIAL ANTIBODY SCREEN (06/02/2018 3:03 PM CASE MANAGEMENT ASSOCIATE) Mitochondrial M2 Antibody <20.0 U [facility] Comment: ?Reference Range: ?NEGATIVE: ??< OR = 20.0 ?EQUIVOCAL: 20.1-24.9 ?POSITIVE: ??> OR = 25.0 Test Performed at: [facility] [address] [place], [place] ??[phone] ROSANNA BRYSON MD,PHD,ARIAS Blood BLOOD SPECIMEN / Unknown 06/02/2018 3:03 PM CASE MANAGEMENT ASSOCIATE 06/02/2018 3:03 PM CASE MANAGEMENT ASSOCIATE Aldo Vásquez MD LAB - CHEMISTRY ORDERABLES [facility] [address] [place] [address] documented in this encounter Visit Diagnoses Diagnosis Other cirrhosis of liver (HCC)- Primary documented in this encounter Additional Health Concerns Infection Onset Date Last Indicated Resolved Time 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
--- OUTSIDE RECORDS SUMMARY | 2024-05-25 03:04 | XMS_ITS | Encounter Summary ---
Author Organization [facility] Address [address] [facility] [place] [address] Care Team Providers Care Cider Press Operator Name Role Phone Briana Medeiros MD Primary Care Provider [phone] Reason for Visit * Auth/Cert Specialty Diagnoses / Procedures Referred By Contac t Referred To Contact Diagnoses Right hip infection Referral ID Status Reason Start Date Expiration Date Visits Re quested Visits Authorized [id number] 1 1 Encounter Details Date Type Department Care Team (Late st Contact Info) Description 02/04/2019 10:41 AM CDT Anesthesia Event [facility] [address] [place] [address] Oziel Gilliam DO [address] [facility] [place] [address] Jeffrey Angelo MD [address] [facility] [place] [address] Anesthesia Record Procedure Summary Procedure Name Responsible [...] Taylor, DONTAE 04/26/19 0000 by Lexie Marquis, [facility] Enteral - 09/15/17; 0915; Dr. Guerra; PEG; Abdomen, Left; Well; 10/28/23 (removed long ago); 204209/15/17 0915 by Denise Damon, DONTAE 10/28/23 204 by Sonia Hunter, DONTAE Peripheral IV Date: 02/03/19; Time : 1330; Orientation: Posterior, Right; Placed By: aileen 02/03/19 1330 by Glendy Muse, DONTAE 02/06/19 1552 by Caridad Bernstein, RN ETT Date: 02/04/19; Time : 1051; Placed By: Mikael Rosales APRND[facility]; Vent: easy mask; Induction: Standard IV; [...] Event Date/Time: 02/04/2019 10:51 AM Procedure: intubation ([id number]). Procedure Section: Sedation: under general anesthesia. Indications [...] 02/04/19; 1051 (created via procedure documentation); EM LeonCONTENT PUBLISHER; easy mask;Standard IV; Juan; 4; Grade 2 (partial cords); Stylet, Cricoid Pressure; Endotracheal Tube; Oral; Cuffed-inflated; 8 MM; 22 CM; lips; 1; Air; Direct visualization, Bilateral breath sounds, ChestAuscultation, CO2 Monitor; 02/04/19; 1148 02/04/19 1051 by Mikael Rosales APRN-CONTENT PUBLISHER 02/04/19 1148 by Mikael Rosales APRN-CRNA Intraprocedure [...] st Contact Info) Description 07/09/2024 12:30 PM POULTRY HATCHERY MAN Office Visit [facility] - GI [address] [place] [address], [place] [phone] Twin Miller MD [address] [place] [address] [place] [address] 09/19/2024 2:00 PM CDT Office Visit [facility] - Orthopedic Surgery [address] [place] [address] Larry Alexander MD [address] [facility] [address] [place] [address] documented as of this encounter Procedures Procedure [...] Event Date/Time: ??02/04/2019 10:51 AM Procedure: intubation ([id number]). Procedure Section: ?? Sedation: under general anesthesia. [...] documented as of this encounter Care Teams Cider Press Operator Relationship Specialty Start Date End Date Briana Medeiros MD [address] [place], [place] [id number] PCP - General 02/15/18 02/22/22 documented as of this encounter
--- OUTSIDE RECORDS SUMMARY | 2024-05-25 03:04 | XMS_ITS | Encounter Summary ---
Author Organization [facility] Address [address] [place] [address] Care Team Providers Care Emissions Technician Name Role Phone Briana Medeiros MD Primary Care Provider [phone] Reason for Visit * Auth/Cert Specialty Diagnoses / Procedures Referred By Contac t Referred To Contact Diagnoses Right hip infection Referral ID Status Reason Start Date Expiration Date Visits Re quested Visits Authorized [id number] 1 1 Encounter Details Date Type Department Care Team (Late st Contact Info) Description 02/08/2019 11:13 AM CDT Anesthesia Event [facility] [address] [place] [address] Josh Kimball DO [address] [place] [address] Nolvia Kilpatrick, TRIM TECHNICIAN-MOVING WORKER [address] [place] [address] Anesthesia Record Procedure Summary Procedure Name Responsible [...] Taylor, DONTAE 04/26/19 0000 by Lexie Marquis [facility] Enteral - 09/15/17; 0915; Dr. Guerra; PEG; [...] Time : 1121; Placed By: Zbigniew Mayen APRN-MOVING WORKER; Vent: easy mask; Induction: Modified Rapid Sequence; [...] Improvement Section (otherwise blank): * Nolvia Kilpatrick APRN-MOVING WORKER - 02/07/2019 8:45 AM CDT ANESTHESIA PREOPERATIVE [...] discussed with: spouse ( [facility] telephone consent [phone]) Anesthetic Plan discussion was: Consented Use of [...] this encounter Procedure Notes * Zbigniew Mayen, TRIM TECHNICIAN-MOVING WORKER - 02/08/2019 11:44 AM CDTAssociated Order(s): ETT Placement Endotracheal Tube Placement: Patient Location: OR. Intubation Event Date/Time: 02/08/2019 11:21 AM Procedure: intubation (20745). Procedure Section: Sedation: under general anesthesia. Indications [...] and Swelling ??? Scopace [Scopolamine] Other and MINER OPERATOR Dysfunction delirium Vitals: Patient Vitals for the [...] st Contact Info) Description 07/09/2024 12:30 PM CITY WELLNESS COORDINATOR Office Visit [facility] - GI [address] [place] [address], [place] [id number] Twin Miller MD [address] [place] [address] [place] [address] 09/19/2024 2:00 PM CDT Office Visit [facility] - Orthopedic Surgery [address] [facility] [place] [address] Larry Alexander MD [address] [facility] [address] [place] [address] documented as of this encounter Procedures Procedure [...] Event Date/Time: ??02/08/2019 11:21 AM Procedure: intubation ([id number]). Procedure Section: ?? Sedation: under general anesthesia. [...] documented as of this encounter Care Teams Emissions Technician Relationship Specialty Start Date End Date Briana Medeiros MD [address] [place] [address] PCP - General 02/15/18 02/22/22 documented as of this encounter
--- OUTSIDE RECORDS SUMMARY | 2024-05-25 03:04 | XMS_ITS | Encounter Summary ---
Author Organization [facility] Address [address] [facility] [place] [address] Care Team Providers Care Oracle Identity Management Consultant Name Role Phone Briana Medeiros MD Primary Care Provider [phone] Reason for Referral * Radiology Services (Routine) - Closed Specialty Diagnoses / Procedures Referred By Contac t Referred To Contact Ultrasound Diagnoses Other cirrhosis of liver (HCC) Procedures US ABDOMEN LIMITED Aldo Vásquez MD [address] [place] [address] [facility] [address] [place] [address] Referral ID Status Reason Start Date Expiration Date Visits Re quested Visits Authorized [id number] Closed 02/15/2018 08/14/2018 1 1 CTOR OF COMMUNICATIONS Reason for Visit * Radiology Services (Routine) - Closed Specialty Diagnoses / Procedures Referred By Contac t Referred To Contact Ultrasound Diagnoses Other cirrhosis of liver (HCC) Procedures US ABDOMEN LIMITED Aldo Vásquez MD [address] [place] [address] [facility] [address] [place] [address] Referral ID Status Reason Start Date Expiration Date Visits Re quested Visits Authorized [id number] Closed 02/15/2018 08/14/2018 1 1 Encounter Details Date Type Department Care Team (Latest Contact Info) Description 05/17/2018 9:19 AM DIRECTOR OF COMMUNICATIONS - 05/17/2018 11:59 PM [facility] Hospital Encounter [facility] [address] [place] [address] Aldo Vásquez MD [address] [place] [address] Discharge Disposition: Home or Self Care Social [...] once daily 3 02/01/2018 02/02/2019 nystatin (MYCOSTATIN) 177055 UNIT/GM powderIndications:Oth er cirrhosis of liver (HCC) [...] once daily 02/15/2019 vitamin D, ergocalciferol, (DRISDOL) 94309 UNITS capsuleIndications:Ot her cirrhosis of liver (HCC) Take 50,000 Units by mouth every 7 days 0 02/02/2018 03/21/2023 documented as of this encounter Plan of Treatment Upcoming Encounters Date Type Department Care Team (Late st Contact Info) Description 07/09/2024 12:30 PM DIRECTOR OF COMMUNICATIONS [facility] GI [address] [place] [address], [place] [phone] Twin Miller MD [address] [place] [address] [place] [address] 09/19/2024 2:00 PM CDT Office Visit [facility] - Orthopedic Surgery [facility] [place] [phone] Vandana Alexander MD [address] [facility] [address] [place] [address] documented as of this encounter Procedures Procedure Name Priority Date/Time Associated Diagnosis Comments US ABDOMEN LIMITED Routine 05/17/2018 9: 58 AM DIRECTOR OF COMMUNICATIONS Other cirrhosis of liver (HCC) documented in this encounter Results * US ABDOMEN LIMITED (05/17/2018 9:58 AM DIRECTOR OF COMMUNICATIONS) Anatomical Region Laterality Modality Abdomen Ultrasound 05/17/2018 9:52 AM DIRECTOR OF COMMUNICATIONS Impressions 05/17/2018 11:07 AM DIRECTOR OF COMMUNICATIONS IMPRESSION: 1. Hepatic cirrhosis without discrete hepatic lesion. 2. Patent hepatic vasculature. 3. No evidence of cholelithiasis or cholecystitis. Dictated by Natacha Garrett M.D. (Resident) I, Dr. VANDANA HENSLEY M.D. have personally reviewed and interpreted this examination/study. This report was electronically signed by VANDANA HENSLEY M.D. ??on 05/17/2018 11:07 AM . Narrative 05/17/2018 11:07 AM DIRECTOR OF COMMUNICATIONS Exam: Abdominal ultrasound limited History: 67-year-old man [...] documented as of this encounter Care Teams Oracle Identity Management Consultant Relationship Specialty Start Date End Date Briana Medeiros MD [address] [place] [address] PCP - General 02/15/18 02/22/22 documented as of this encounter
--- OUTSIDE RECORDS SUMMARY | 2024-05-25 03:05 | XMS_ITS | Encounter Summary ---
Author Organization [facility] Address [address] [place] [address] Care Team Providers Care Outbound Sales Advisor Name Role Phone Briana Medeiros MD Primary Care Provider [phone] Mau Bridges MD Primary Care Provider [phone] Reason for Visit * Auth/Cert Specialty Diagnoses / Procedures Referred By Contsara t Referred To Contact Diagnoses ACUTE HYPOXEMIC RESPIRATORY FAILURE Referral ID Status Reason Start Date Expiration Date Visits Re quested Visits Authorized [id number] 1 1 Encounter Details Date Type Department Care Team (Latest Contact Info) Description 09/06/2017 3:40 PM CDT - 09/19/2017 1:20 PM CDT Hospital Encounter [facility] 7 ICU [address] [place] [address] Jason Nash MD [address] [facility] 2L DIV OF PULMONARY/[place] [address] Pulmonary Disease Discharge Disposition: Extension Work Director Acute Care Social History Tobacco Use Types [...] Discharge Summary Patient ID: José Miguel Keys [id number] 66 y.o. 1950 Admit date: 09/06/2017 Discharge [...] awake during the day and Volume AC(RR=15, Qg=956, PEEP=8) with sleep Oral care BID ?? 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 Patient Instructions: Current Discharge Medication [...] 2 times daily with morning and evening apprenticeIgor Gilliam * oxyCODONE (immediate release) 5 MG [...] MG capsule Commonly known as: SINEquan ergocalciferol 38117 UNITS capsule Commonly known as: DRISDOL ferrous [...] Commonly known as: KENALOG vitamin D (ergocalciferol) 87110 UNITS capsule Commonly known as: DRISDOL Activity: [...] Level of Care:LTAC Facility Name: [facility] and On license of [facility] heart coordinator [place] Made Aware of Special Needs (if applicable): Facility aware of trach/vent and Tube and tube feeding needs RN Call Report to: [phone] RN Fax D/C Orders to: [phone] Transportation (company and number): [facility] [phone] trip number [id number] Certificate of Medical Necessity rationale: Trach and Vent Date/time of transfer: 09/19/2017 1300 Accepting MD: Dr. Espino [phone] Completed and Signed EY525T (if applicable) N/A Family/Other Notified of Transfer (name/phone): Trinity at [phone] Authorization Skilled Care: N/A Authorization for Transportation: trip ticket [id number] Comments: [facility] has [facility] accepted at [facility] [place]. Patient and family agreeable with discharge plan. Christina Mendieta RN * Christina Mendieta RN - 09/19/2017 11:10 AM CDT Patient to be discharged to [facility] LT At the [facility] Location. Medical team aware and given report number for report.([phone]) Nursing given number for report [phone]. [facility] set up for transport at [...] Labs Component Name 09/10/17 0557 PO2ART 80 HFJ2NZD 44 MAV1HIP 30.0* ?? Radiology: ?? CXR this morning [...] placement - patient has been accepted at [facility] Associated attestation - Poncho Galarza MD [...] Labs Component Name 09/10/17 0557 PO2ART 80 THN1MWO 44 UME0TBH 30.0* ?? Radiology: ?? CXR this morning [...] placement - patient has been accepted at [facility] Associated attestation - Poncho Galarza MD [...] Gastroenterology Fellow Vira Wilson MD Gastroenterology Fellow ([phone]) [phone] * Jaclyn Monsivais RCP - 09/16/2017 12:08 [...] Case management updated [facility] facility [facility]. [facility] heart coordinator ley of potential discharge date. Will continue to keep facility updated. Christina Mendieta RN 09/16/2017 10:58 AM [phone] * Nicolas Fuentes OT - 09/16/2017 10:23 AM CDT [facility] Physical Medicine and Rehabilitation Occupational Therapy Progress Note Patient: José Miguel Keys Med Record Number: [id number] Date of : 1950 Age: 66 y.o. [...] edge of bed With minimal assist ?? Detention Goal: Patient to discharge to appropriate next level of inpatient care. If patient is discharged from the facility, this note serves as a discharge note if further occupational therapy visits did not occur. Following therapy session, patient left in neuro/annelise chair, with call light within reach and with RNJose L. Nicolas Fuentes OT * Beata Shafer, PT - 09/16/2017 10:22 AM CDT [facility] Physical Medicine and Rehabilitation PhysicalTherapy Progress Note Co-tx with OT and RT Patient: José Miguel Keys Med Record Number: [id number] Date of : 1950 Age: 66 y.o. [...] on edge of bed With minimal assist Extension Work Director Goal: Patient to discharge to appropriate next [...] per nursing assess Estimated Energy Needs: KCAL: [id number] ([facility] 2009-obese/vent (97.3kg)) Protein (g): 135-165 (1.8- 2.2g/kg [...] Labs Component Name 09/10/17 0557 PO2ART 80 DSR8HNX 44 UND7YXQ 30.0* ?? Radiology: ?? CXR this morning [...] placement - patient has been accepted at [facility] Associated attestation - Yogesh Duncan MD [...] 7.45 7.51* 7.41 PO2ART 80 274* 65* PWM6UKE 44 38 45 BEART 5.4* 5.7* 2.4* [...] Isaacs, OT - 09/15/2017 2:15 PM CDT [facility] Physical Medicine and Rehabilitation Occupational Therapy Progress Note Patient: José Miguel Keys Med Record Number: [id number] Date of : 1950 Age: 66 y.o. [...] stand With mod assist and X 2 Detention Goal:Patient to discharge to appropriate next level [...] Shafer, PT - 09/15/2017 2:10 PM CDT [facility] Physical Medicine and Rehabilitation PhysicalTherapy Progress Note Co-tx with OT and RT Patient: José Miguel Keys Med Record Number: [id number] Date of : 1950 Age: 66 y.o. [...] on edge of bed With minimal assist Detention Goal: Patient to discharge to appropriate next [...] TBILI 0.3 ALB 1.8* -Impression: Need for medical assistant prn enteral feedings -Plan/ recommendations: - PEG today [...] Labs Component Name 09/10/17 0557 PO2ART 80 NEU9ZSB 44 JBQ1KDS 30.0* ?? Radiology: ?? CXR this morning [...] placement - patient has been accepted at [facility] * Bandar Davis MD - 09/15/2017 [...] Labs Component Name 09/10/17 0557 PO2ART 80 WLJ5DSK 44 JVX0JPP 30.0* ?? Radiology: ?? CXR this morning [...] Vita Troncoso MD 09/12/2017 * Kalyan Cook [facility] - 09/14/2017 1:25 PM CDT Patient [...] Isaacs OT - 09/14/2017 1:20 PM CDT [facility] Physical Medicine and Rehabilitation Occupational Therapy Progress Note Patient: José Miguel Keys Med Record Number: [id number] Date of : 1950 Age: 66 y.o. [...] stand With mod assist and X 2 Detention Goal:Patient to discharge to appropriate next level of inpatient care If patient is discharged from the facility, this note serves as a discharge note if further occupational therapy visits did not occur. Following therapy session, patient left in bed, with call light within reach, with family in room and with RNAlexia. Gabriela Isaacs OT * Beata Shafer, PT - 09/14/2017 1:20 PM CDT [facility] Physical Medicine and Rehabilitation PhysicalTherapy Progress Note Updated orders received s/p tracheostomy, no re-evaluation indicated - continue PT POC Co-tx with OT and RT Patient: José Miguel Keys Med Record Number: [id number] Date of : 1950 Age: 66 y.o. [...] on edge of bed With minimal assist Detention Goal: Patient to discharge to appropriate next [...] - 09/14/2017 9:53 AM CDT Spoke with heart coordinator from [facility]. Patient has been accepted at facility and may go when patient is medically stable. Nursing staff aware. Christina Mendieta RN 09/14/2017 9:57 AM * Beata Shafer, PT - 09/14/2017 7:51 AM CDT [facility] Department of Physical Medicine & Rehabilitation Progress Note Patient: José Miguel Keys Med Record Number: [id number] Date of : 1950 Age: 66 y.o. 09/14/17 0751 Therapy on Hold Therapy on hold Surgery. Chart reviewed, patient to OR with general anesthesia. Patient now on holdfrom therapy services. Please re-consult when patient is appropriate for functional mobility and therapy interventions. Beata Shafer PT 09/14/2017 7:52 AM * Gabriela Isaacs OT - 09/14/2017 7:51 AM CDT Occupational Therapy [facility] Department of Physical Medicine & Rehabilitation Progress Note Patient: José Miguel Keys Med Record Number: [id number] Date of : 1950 Age: 66 y.o. [...] LTAC placement. 's preference is [facility]. Referral sent and call placed to fieldwork coordinator and will review the patients eligibility today. Patient to have trach and PEG placed today. Christina Mendieta RN 09/13/2017 10:27 AM [phone] * Kalyan Cook RCP - 09/13/2017 9:35 [...] - 09/13/2017 9:30 AM CDT Occupational Therapy [facility] Physical Medicine and Rehabilitation Occupational Therapy Progress Note Patient: José Miguel Keys [facility] Record Number: [id number] Date of : 1950 Age: 66 y.o. [...] 2 and Patient will perform AROM Independently Detention Goal:Patient to discharge to appropriate next level of inpatient care If patient is discharged from the facility, this note serves as a discharge note if further occupational therapy visits did not occur. Following therapy session, patient left in bed, with call light within reach and with RN, Glendy aware. Gabriela Isaacs OT * Beata Shafer, PT - 09/13/2017 9:30 AM CDT [facility] Physical Medicine and Rehabilitation PhysicalTherapy Progress Note Co-tx with OT and RT Patient: José Miguel Keys Med Record Number: [id number] Date of : 1950 Age: 66 y.o. [...] on edge of bed With minimal assist Detention Goal: Patient to discharge to appropriate next [...] Labs Component Name 09/10/17 0557 PO2ART 80 PBP9QFN 44 TEX1HGW 30.0* ?? Radiology: ?? CXR this morning [...] 7.45 7.51* 7.41 PO2ART 80 274* 65* ZJC7DVT 44 38 45 BEART 5.4* 5.7* 2.4* [...] LTAC placement at [facility]. Family does not want pt to return to [place]. SW to submit LTAC referral to [facility] and continue following. Tessie Harris 09/12/2017 5:08 PM [phone] * Beata Shafer, PT - 09/12/2017 3:23 PM CDT [facility] Department of Physical Medicine & Rehabilitation Progress Note Patient: José Miguel Keys Med Record Number: [id number] Date of : 1950 Age: 66 y.o. Per discussion with MICU 3, cancel therapy this date 2/2 pt going for tracheostomy. Will continue to follow. Beata Shafer, PT 09/12/2017 3:23 PM * Gabriela Isaacs, OT - 09/12/2017 3:11 PM CDT Occupational Therapy [facility] Department of Physical Medicine & Rehabilitation Progress Note Patient: José Miguel Keys Med Record Number: [id number] Date of : 1950 Age: 66 y.o. [...] Pain affecting intake: No Estimated Needs: KCAL: 9060-2791 ([place] 2010-obese/vent (97.3kg)) Protein (g): 135-165 (1.8-2.2g/kg [...] Labs Component Name 09/10/17 0557 PO2ART 80 TXK6YQC 44 XVU4HKJ 30.0* ?? Radiology: ?? CXR this morning [...] 7.45 7.51* 7.41 PO2ART 80 274* 65* SXT4GVK 44 38 45 BEART 5.4* 5.7* 2.4* [...] Labs Component Name 09/10/17 0557 PO2ART 80 WGV2HBW 44 ZLK8XPK 30.0* ?? Radiology: ?? CXR this morning [...] of Pulmonary, Critical Care, & Sleep Medicine [facility] Pager: [phone] * Hoa Taylor RN - 09/10/2017 11:51 [...] Labs Component Name 09/10/17 0557 PO2ART 80 GPP0YBL 44 BTI3BEQ 30.0* ?? Radiology: ?? CXR this morning [...] of Pulmonary, Critical Care, & Sleep Medicine [facility] Pager: [phone] Associated attestation - Jason Nash MD - [...] Author: CHRIS Ibanez Service: (none) Author Type: Grants Assistant Date of Service: 09/09/2017 4:59 PM Filed: 09/09/2017 5:01 PM Note Type: Progress Notes Status: Signed [facility] Supervisor: CHRIS Ibanez (Grants Assistant) LAURA following pt for discharge planning. LAURA met with pt's , Trinity Keys [phone], to offer support. SW familiar with pt [...] PM Note Type: Progress Notes Status: Signed [facility] Supervisor: RT Elda (Respiratory Therapist) 09/09/17 1642 RT/ Bronch Procedure $ Bedside Bronch Flexible Bronchoscopy Procedures Flexible Bronchoscopy Site?: ICU Pre-Procedure Diagnosis Pre Procedure LOC: Sedated Procedure details Procedure start time: 1425 Scope in time: 1426 ETT Size: 8 Post Procedure Dx Scope Number: disposable Scope out time: 1449 Procedure ends: 1449 Report given to: RN Assisted with bedside bronchoscopy. [place] protocol checklist completed prior to procedure with [...] PM Note Type: Progress Notes Status: Signed [facility] Supervisor: RT Martha (Respiratory Therapist) Respiratory therapist assisted with PO/OT.Manage ventilator. * Claire Marcum MD - 09/09/2017 1:36 PM CDT Progress Notes Signed by MARTHA Enciso on 09/09/2017 3:00 PM Author: MARTHA Enciso Service: (none) Author Type: Occupational Therapist Date of Service: 09/09/2017 1:36 PM Filed: 09/09/2017 3:00 PM Note Type: Progress Notes Status: Signed [facility] Supervisor: MARTHA Enciso (Occupational Therapist) Occupational Therapy [facility] Physical Medicine and Rehabilitation Occupational Therapy Initial Evaluation Note Patient: José Miguel Burroughs Record Number: [id number] Date of : 1950 Age: 66 y.o. [...] Atrial fibrillation ??? CAD (coronary artery disease) [place] 1981, last angiogram 2010 ??? Chronic atrial [...] Type of Home: Facility (pt came from [place]) Prior Function: Level of [place]: Needs assistance with ADLs;Needs assistance with homemaking;Needs [...] treatment : 20 minutes;with fair + endurance Detention Goal: Detention Goal: Patient to discharge to appropriate next [...] PM Note Type: Progress Notes Status: Signed [facility] Supervisor: Beata Shafer PT (Physical Therapist) Physical Therapy [facility] Physical Medicine and Rehabilitation Physical Therapy Initial Evaluation Note Co-tx with OT and RT Patient: José Miguel Keys Med Record Number: [id number] Date of : 1950 Age: 66 y.o. [...] DIAGNOSIS: Past Medical History: Diagnosis Date ??? PAYTNO (acute kidney injury) ??? Asthma ??? Atrial fibrillation ??? CAD (coronary artery disease) [place] 1981, last angiogram 2010 ??? Chronic atrial [...] of Home: Facility Prior Function: Level of [place]: Needs assistance with functional transfers Receives Help [...] Sit Edge of Bed: With minimal assist Extension Work Director Goal(s): Detention Goal: Patient to discharge to appropriate next [...] AM Note Type: Progress Notes Status: Signed [facility] Supervisor: Beata Shafer PT (Physical Therapist) Physical Therapy [facility] Department of Physical Medicine [...] PM Note Type: Progress Notes Status: Attested [facility] Supervisor: Vita Troncoso MD (Resident) Cosigner: Jason [...] 09/06/2017 ABG: Lab Results Component Value Date MQR6MPY 45 09/09/2017 PO2ART 65 (L) 09/09/2017 PLI7LVE 27.4 (H) 09/09/2017 Radiology: CXR this morning [...] MD 09/09/2017 7:39 AM * Delphine Waddell APRN-PLATER SUPERVISOR - 09/09/2017 4:16 AM CDT Progress Notes Signed by Delphine Waddell NP on 09/09/2017 4:23 AM Author: Delphine Waddell NP Service: Medical ICU Author Type: Nurse Practitioner Date of Service: 09/09/2017 4:16 AM Filed: 09/09/2017 4:23 AM Note Type: Progress Notes Status: Signed [facility] Supervisor: Delphine Waddell NP (Nurse Practitioner) Called [...] Delphine Waddell NP Critical Care, MICU3 Ext [phone] * ProviderClaire MD - 09/08/2017 8:05 AM CDT Progress Notes Signed by MARTHA Newton on 09/08/2017 8:06 AM Author: MARTHA Newton Service: Physical Medicine and Rehabilitation Author Type: Occupational Therapist Date of Service: 09/08/2017 8:05 AM Filed: 09/08/2017 8:06 AM Note Type: Progress Notes Status: Signed [facility] Supervisor: MARTHA Newton (Occupational Therapist) Occupational Therapy [facility] Department of Physical Medicine [...] PM Note Type: Progress Notes Status: Attested [facility] Supervisor: Vita Troncoso MD (Resident) Cosigner: Jason [...] 09/06/2017 ABG: Lab Results Component Value Date IHE3GQK 47 (H) 09/06/2017 PO2ART 169 (H) 09/06/2017 QWL6KSQ 27.0 (H) 09/06/2017 Radiology: CXR this morning [...] AM Note Type: Progress Notes Status: Signed [facility] Supervisor: Kim Joshua RN (Registered Nurse) 5314 Patient states he is SOB and feels [...] PM Note Type: Progress Notes Status: Attested [facility] Supervisor: Vita Troncoso MD (Resident) Related Notes: [...] 09/06/2017 ABG: Lab Results Component Value Date XZH1NPA 47 (H) 09/06/2017 PO2ART 169 (H) 09/06/2017 JST3PNQ 27.0 (H) 09/06/2017 Radiology: CXR this morning [...] Ирина Barrientos RD Service: (none) Author Type: Claims Configuration Analyst Date of Service: 09/07/2017 7:27 AM Filed: 09/07/2017 8:29 AM Note Type: Progress Notes Status: Signed [facility] Supervisor: Ирина Barrientos RD (Claims Configuration Analyst) Medical Nutrition Therapy Evaluation Nutrition Recommendations: Alter/change [...] 3.6 oz (113.5 kg) Estimated Needs: Calories: 4372-0212 kcals ([facility] 2010) vent/obese Protein: 135-165 g (1.8-2.2g/kg) [...] AM Note Type: Progress Notes Status: Signed [facility] Supervisor: Jay Lemon RN (Registered Nurse) At [...] AM Note Type: Progress Notes Status: Signed [facility] Supervisor: RT Niurka (Respiratory Therapist) Patient is [...] AM Note Type: Progress Notes Status: Signed [facility] Supervisor: Jay Lemon RN (Registered Nurse) Notified [...] PM Note Type: Progress Notes Status: Signed [facility] Supervisor: Jason Nash MD (Physician) ICU progress [...] PM Note Type: Progress Notes Status: Signed [facility] Supervisor: RT Song (Respiratory Therapist) 09/06/17 1500 [...] given to: RN Assisted with bedside bronchoscopy. [place] protocol checklist completed prior to procedure with [...] Author: CHRIS Littlejohn Service: (none) Author Type: Grants Assistant Date of Service: 09/06/2017 12:03 PM Filed: 09/06/2017 12:06 PM Note Type: Progress Notes Status: Signed [facility] Supervisor: CHRIS Littlejohn (Grants Assistant) READMISSION NOTE: ?? Pt readmitted to [facility] within 30 days. Pt transferred from [facility] to [facility]. Below assessment was completed with [...] was completed with pt's , Francia Keys [phone], at bedside. ? Admitting Diagnosis: Sepsis ? Pt readmitted with in 30 days: No ?Primary Care Doctor: Dr. Mau Medeiros [phone], last saw this physician three months ago. ? Prior Ability to perform ADL???s: Independent ? Anticipated Changes in performance of ADLS: PT/OT recommending SNF placement. Pt and are agreeable to recommendations and would like referrals submitted to [facility] and [facility]. SW to submit referrals. ? Communication of Needs:??Jamaican, self, A&Ox4? Medication Management: Uses [facility] in [place] ([phone]) ? Current Living Situation: Pt lives with his in their multi level home. There are 14 steps witha railing on one side to enter the home. ? Current Support System:??Francia Keys () [phone] ? Power of Systems Operator or Guardian: No ? Financial: Retired, insured [...] Other Healthcare Applications Active with Medicare and [employer] Substance Abuse Assessment and Treatment plan N/A Social Work referral for skilled placement needs Referrals submitted to [facility] and [place] Other: Pt is a ? Case Management [...] Best??address and??telephone # for Patient: ? [address] [place] [address] ? Insurance and demographics verified with patient. ? CHRIS Ibanez?? 07/19/2017 ?? ED to Hosp-Admission (Discharged) on 08/27/2017 ?? Detailed Report ?? documented in this encounter H&P Notes * Lousi Mcconnell MD - 09/15/2017 8:47 AM CDT [...] bolus 2 g Intravenous Once Delphine Waddell APRN-PLATER SUPERVISOR ??? ceFAZolin (ANCEF) syringe 2,000 mg 2 [...] mg Enteral Tube BID Delphine Waddell APRN- PLATER SUPERVISOR 8.6 mg at 09/14/172043 ??? polyethylene glycol 3350 (MIRALAX) packet 17 g 17 g Enteral Tube QDAY PRN Delphine Waddell APRN-PLATER SUPERVISOR 17 g at 09/11/17 0842 ??? docusate sodium (COLACE) solution 100 mg 100 mg Enteral Tube QDAY Delphine Waddell APRN-PLATER SUPERVISOR 100mg at 09/14/17 0841 ??? lidocaine (LIDODERM) [...] Pain assessment: None Sedation Assessment & Plan: [place] [employer] Anesthesiologists Classification (PRE-PROCEDURE): ASA 3 [...] 5:06 PM Note Type: H&P Status: Attested [facility] Supervisor: Vita Troncoso MD (Resident) Cosigner: Jason [...] osteomyelitis of L1/L2 and DVT [facility]. Patient with recent [...] Atrial fibrillation ??? CAD (coronary artery disease) PA 1981, last angiogram 2010 ??? Chronic atrial [...] area twice daily as needed ??? ergocalciferol 92422 UNITS Cap Take 50,000 Units by mouth [...] DAY NEEDED 0 ??? Vitamin D, Ergocalciferol, 83956 UNITS Cap Take 1 capsule by mouth [...] Recent Labs 09/06/17 1211 PO2ART 152 H LEO7ZPJ 55 H OGB4WHH 25.0 Urine Studies: Lab Results Component Value [...] 2:54 PM Note Type: Procedures Status: Attested [facility] Supervisor: Veronica Costello MD (Resident) Related Notes: [...] 4:14 AM Note Type: Procedures Status: Signed [facility] Supervisor: Ivonne Rubin MD (Resident) Cosigner: Jason [...] 5:08 PM Note Type: Procedures Status: Attested [facility] Supervisor: Veronica oCstello MD (Resident) Cosigner: Jason Nash MD at 09/08/2017 9:56 PM Procedures: 1. CHEST TUBE INSERTION [[id number] (Custom)] Attestation signed by Jason Nash MD [...] over the guidewire and removed. A 14 Niuean tube was placed in the left lateral [...] of Pulmonary, Critical Care, & Sleep Medicine [facility] Pager: [phone] * Veronica Costello MD - 09/06/2017 2:10 PM CDT Procedures Signed by Veronica Costello MD on 09/06/2017 5:11 PM Author: Veronica Costello MD Service: Pulmonary Critical Care Author Type: Resident Date of Service: 09/06/2017 2:10 PM Filed: 09/06/2017 5:11 PM Note Type: Procedures Status: Attested [facility] Supervisor: Veronica Costello MD (Resident) Related Notes: [...] of L1/L2 [facility] completing IV antibx for prior bacteremia [...] by mouth DAILY. Disp: Rfl: ergocalciferol (DRISDOL) 15599 UNITS capsule Take 50,000 Units by mouth [...] Disp: Rfl: 0 vitamin D, ergocalciferol, (DRISDOL) 48149 UNITS capsule Take 1 capsule by mouth [...] concerns. Vira Wilson MD Gastroenterology Fellow Pager: [phone] Associated attestation - Elizabeth Lee MD - 09/14/2017 8:07 PM CDT [facility] GI Attending José Miguel Kramer Keys is a 66 y.o. male who was seen and examined with the GI fellow 09/14/2017. I agree with their note attached. In addition, I note patient with complex recent medical illness, including hypoxic respiratory failure. Status post trach and in need of long-term nutrition for rehab as he is unable [...] Feeding difficulties in adult with need for correction nutrition. 2. Daily ASA 3. On ceftaroline [...] 4:42 PM Note Type: Consults Status: Attested [facility] Supervisor: Vibha Benites MD (Resident) Cosigner: Elisabet [...] Atrial fibrillation ??? CAD (coronary artery disease) PA 1981, last angiogram 2010 ??? Chronic atrial [...] 0-6 Units 0-6 Units Subcutaneous Q6HR Vita Troncsoo MD 1 Units at 09/07/17 0535 ??? amiodarone (PACERONE) tablet 200 mg 200 mg Feeding Tube BID Rebecca Melendez, CONTACT PRINTER DRY FILM 200 mg at 09/07/17 0840 Allergies: Allergies [...] History Encounter [place] war Review of Systems [facility] 07/08 resp status Physical Examination: Patient [...] 6:43 PM CDT José Miguel Keys 1950 [id number] Date of Procedure: 09/13/2017 Pre-Op Diagnosis: Ventilator dependency; Prolonged endotracheal intubation Post-Op Diagnosis: Same Procedure: Tracheostomy w/ skin fenestration, CPT code 78424 Surgeon: Duke Castaneda MD Resident: Leslye Wood [...] tested for defects and nonewere found. The structural analysis engineer withdrew the endotracheal tube under direct visualization [...] Note Type: ED Provider Notes Status: [facility] Supervisor: Bandar Mansfield MD (Physician) [facility] eMERGENCY dEPARTMENT eNCOUnter ATTENDING PHYSICIAN NOTE HISTORICAL INFORMATION Primary Care Doctor: Mau Medeiros Patient information was obtained primarily from the patient, nursing notes, records History/Exam limitations: clinical condition. Time of evaluation: 11:21AM CHIEF COMPLAINT Shortness of Breath HPI José Miguel Keys is a 66 y.o. male with a past medical history of DM, asthma, A- fib, HTN, COPD, and PA who arrived to the ED via EMS at 11:21AM for severe repiratory distress. Patient was placed on CPAP per EMS en route, satting at 75%. HPI limited and obtained per EMS 2/2 acuity of medical condition. PAST MEDICAL HISTORY Past Medical History: Diagnosis Date ??? PAYTON (acute kidney injury) ??? Asthma ??? Atrial fibrillation ??? CAD (coronary artery disease) PA 1981, last angiogram 2010 ??? Chronic atrial [...] the esophagus and tips are off the [id number]-mymd. There is a moderate left pleural effusion, intervally decreased. There is a small right pleural effusion, unchanged. There are bilateral interstitial and airspace opacities likely representing pulmonary edema or pneumonia. No pneumothorax is identified. The cardiac silhouette is partly obscured. Report dictated by Rohan Hopkins M.D. (vice president network). I, Dr. SILAS NGUYỄN MD have personally [...] in the appropriate position and an 18 Niuean nasogastric tube waslubricated with water soluble lubricant [...] Emergency Medicine Physician Bandar Mansfield MD 09/06/17 5830 documented in this encounter Plan of Treatment Upcoming Encounters Date Type Department Care Team (Late st Contact Info) Description 07/09/2024 12:30 PM MANAGER RAIL Office Visit [facility] - GI [address] [facility] [place] [address] Twin Miller MD [facility] [facility] 2L [place] [address] 09/19/2024 2:00 PM CDT Office Visit [facility] - Orthopedic [facility] [address] [facility] [place] [id number] Larry Alexander MD [address] [place] [address] Pending Results Name Type Priority Associated Diagnoses [...] POINT OF CARE (09/19/2017 2:45 AM CDT) [facility] Glucose WB/POC 181(H) 70 - 115 mg/dL 09/19/2017 2:59 AM CDT [facility] Blood BLOOD SPECIMEN / Unknown 09/19/2017 2:45 AM CDT 09/19/2017 2:59 AM CDT Narrative [facility] - 09/19/2017 2:59 AM CDT Corporate Tax Manager: GONZALEZ ??TANNERINDA Jason Nash MD LAB - POINT OF CARE ORDERABLES Performing Organization Address City/State/[facility] Co de Phone Number [address] [phone] * (ABNORMAL) RBC MORPHOLOGY (09/19/2017 2:43 AM CDT) Platelet Estimate Adequate Adequate 09/19/2017 5:26 AM CDT [facility] Anisocytosis 1+(A) None 09/19/2017 5:26 AM CDT [facility] Microcytes Few(A) None 09/19/2017 5:26 AM CDT [facility] Macrocytosis 1+(A) None 09/19/2017 5:26 AM CDT [facility] Hypochromia 1+(A) None 09/19/2017 5:26 AM CDT [facility] Schistocytes Occasional(A ) None 09/19/2017 5:26 AM CDT [facility] Ovalocytes 1+(A) None 09/19/2017 5:26 AM CDT [facility] Blood BLOOD SPECIMEN / Unknown Venipuncture / Unknown 09/19/2017 2:43 AM CDT 09/19/2017 3:39 AM CDT Rebecca Melendez HEEL WASHER STRINGING MACHINE OPERATOR-PLATER SUPERVISOR LAB - HEMATOLOGY ORDERABLES Performing Organization Address [facility] Co de Phone Number [address] [phone] * MAGNESIUM BLOOD (09/19/2017 2:43 AM CDT) Magnesium 1.7 1.6 - 2.6 mg/dL 09/19/2017 4:19 AM CDT [facility] Blood BLOOD SPECIMEN / Unknown Venipuncture / Unknown 09/19/2017 2:43 AM CDT 09/19/2017 3:39 AM CDT Rebecca Melendez HEEL WASHER STRINGING MACHINE OPERATOR-PLATER SUPERVISOR LAB - CHEMISTRY O RDERABLES Performing Organization Address City/[facility]/ZIP Co de Phone Number [address] [phone] * (ABNORMAL) CBC W AUTO DIFFERENTIAL (09/19/2017 2:43 AM [facility]) WBC 8.5 3.5 - 10.5 10? 3 /uL 09/19/2017 4:25 AM [facility] RBC 2.85(L) 4.30 - 5.70 10? 6 /uL 09/19/2017 4:25 AM [facility] Hemoglobin 8.1(L) 13.5 - 17.5 g/dL 09/19/2017 4:25 AM [facility] Hematocrit 28.0(L) 39.0 - 50.0 % 09/19/2017 4:25 AM [facility] MCV 98.2(H) 81.0 - 97.0 fL 09/19/2017 4:25 AM [facility] MCH 28.4 28.0 - 34.0 pg 09/19/2017 4:25 AM [facility] MCHC 28.9(L) 32.0 - 36.0 g/dL 09/19/2017 4:25 AM [facility] Platelet Count 208 150 - 400 10? 3 /uL 09/19/2017 4:25 AM [facility] RDW-SD 76.4(H) 36.0 - 50.0 fL 09/19/2017 4:25 AM [facility] RDW-CV 21.3(H) 11.2 - 14.8 % 09/19/2017 4:25 AM [facility] MPV 13.4(H) 9.3 - 12.8 fL 09/19/2017 4:25 AM [facility] Neutrophils % 79.2(H) 35.0 - 70.0 % 09/19/2017 4:25 AM [facility] Lymphocytes % 9.5(L) 19.7 - 55.1 % 09/19/2017 4:25 AM [facility] Monocytes % 6.7 3.0 - 15.0 % 09/19/2017 4:25 AM [facility] Eosinophils % 4.4 0.0 - 6.0 % 09/19/2017 4:25 AM [facility] Basophil % 0.2 0.0 - 1.5 % 09/19/2017 4:25 AM [facility] Neutrophils Absolute 6.8 1.6 - 7.0 10? 3 /uL 09/19/2017 4:25 AM [facility] Lymphocyte Absolute 0.8 0.8 - 2.9 10? 3 /uL 09/19/2017 4:25 AM [facility] Monocytes Absolute 0.57 0.14 - 0.66 10? 3 /uL 09/19/2017 4:25 AM [facility] Eosinophils Absolute 0.38(H) 0.00 - 0.22 10? 3 /uL 09/19/2017 4:25 AM [facility] Basophils Absolute 0.02 0.00 - 0.06 10? 3 /uL 09/19/2017 4:25 AM [facility] Reflex Status Morphology review to follow. 09/19/2017 4:25 AM [facility] Immature Granulocytes % 0.5 0.0 - 1.0 % 09/19/2017 4:25 AM [facility] Blood BLOOD SPECIMEN / Unknown Venipuncture / Unknown 09/19/2017 2:43 AM CDT 09/19/2017 3:39 AM CDT Rebecca Melendez HEEL WASHER STRINGING MACHINE OPERATOR-PLATER SUPERVISOR LAB - HEMATOLOGY ORDERABLES Performing Organization Address City/State/[facility] Co de Phone Number [address] [phone] * (ABNORMAL) BASIC METABOLIC PANEL (CALCIUM TOTAL) (09/19/2017 2:43 AM CDT) BUN 26 7 - 26 mg/dL 09/19/2017 4:19 AM [facility] Creatinine 0.6 0.6 - 1.2 mg/dL 09/19/2017 4:19 AM [facility] Sodium 138 136 - 145 mmol/L 09/19/2017 4:19 AM [facility] Potassium 4.9(H) 3.5 - 4.5 mmol/L 09/19/2017 4:19 AM [facility] Chloride 98 98 - 107 mmol/L 09/19/2017 4:19 AM [facility] CO2 34(H) 22 - 29 mmol/L 09/19/2017 4:19 AM [facility] Glucose 153(H) 70 - 115 mg/dL 09/19/2017 4:19 AM [facility] Calcium 9.1 8.4 - 10.2 mg/dL 09/19/2017 4:19 AM [facility] Anion Gap 11 8 - 18 09/19/2017 4:19 AM [facility] BUN/Creatinine Ratio 43(H) 7 - 23 09/19/2017 4:19 AM [facility] Osmolality Calculated 294 270 - 300 mOsm/kg 09/19/2017 4:19 AM [facility] eGFR >60 >60 mL/min/1.7 3 m2 09/19/2017 4:19 AM [facility] Blood BLOOD SPECIMEN / Unknown Venipuncture / Unknown 09/19/2017 2:43 AM CDT 09/19/2017 3:39 AM CDT Rebecca Melendez HEEL WASHER STRINGING MACHINE OPERATOR-PLATER SUPERVISOR LAB - CHEMISTRY O RDERABLES [address] [phone] * PHOSPHORUS BLOOD (09/19/2017 2:43 AM CDT) Phosphorus 2.5 2.3 - 4.7 mg/dL 09/19/2017 4:19 AM [facility] Blood BLOOD SPECIMEN / Unknown Venipuncture / Unknown 09/19/2017 2:43 AM CDT 09/19/2017 3:39 AM CDT Rebecca Alissa [place] HEEL WASHER STRINGING MACHINE OPERATOR-PLATER SUPERVISOR LAB - CHEMISTRY O RDERABLES [address] [phone] * (ABNORMAL) GLUCOSE - POINT OF CARE (09/18/2017 4:50 PM CDT) Glucose WB/POC 140(H) 70 - 115 mg/dL 09/18/2017 5:04 PM CDT [facility] Blood BLOOD SPECIMEN / Unknown 09/18/2017 4:50 PM CDT 09/18/2017 5:04 PM CDT Narrative [facility] - 09/18/2017 5:04 PM CDT Corporate Tax Manager: SMITH ??NOA Jason Nash MD LAB - POINT OF CARE ORDERABLES [facility] [address] [phone] * XR CHEST 1VW PORTABLE (09/18/2017 2:45 [...] - 115 mg/dL 09/18/2017 1:13 PM CDT [facility] Blood BLOOD SPECIMEN / Unknown 09/18/2017 1:00 PM CDT 09/18/2017 1:13 PM CDT Narrative [facility] - 09/18/2017 1:13 PM CDT Corporate Tax Manager: SMITH ??NOA Jason Nash MD LAB - POINT OF CARE ORDERABLES Performing Organization Address [facility]/ZIP Co de Phone Number [address] [phone] * MAGNESIUM BLOOD (09/18/2017 11:04 AM CDT) Magnesium 2.6 1.6 - 2.6 mg/dL 09/18/2017 11:39 AM CDT [facility] Blood BLOOD SPECIMEN / Unknown Venipuncture / Unknown 09/18/2017 11:04 AM CDT 09/18/2017 11:06 AM CDT Jason Nash MD LAB - CHEMISTRY ROYCE KLINE Performing Organization Address [facility]/ZIP Co de Phone Number [address] [phone] * PHOSPHORUS BLOOD (09/18/2017 12:03 AM CDT) Phosphorus 2.8 2.3 - 4.7 mg/dL 09/18/2017 12:48 AM CDT [facility] Blood BLOOD SPECIMEN / Unknown Lab Venipuncture / Unknown 09/18/2017 12:03 AM CDT 09/18/2017 12:03 AM CDT Rebecca Melendez APRN-JEANNIE LAB - CHEMISTRY O RDERABLES [facility] [address] [place] [address] * MAGNESIUM BLOOD (09/18/2017 12:03 AM CDT) Pathologist [facility] Magnesium 2.0 1.6 - 2.6 mg/dL 09/18/2017 12:48 AM [facility] Blood BLOOD SPECIMEN / Unknown Lab Venipuncture / Unknown 09/18/2017 12:03 AM CDT 09/18/2017 12:03 AM CDT Rebecca Melendez HEEL WASHER STRINGING MACHINE OPERATOR-PLATER SUPERVISOR LAB - CHEMISTRY O RDERABLES [address] [phone] * (ABNORMAL) CBC W AUTO DIFFERENTIAL (09/18/2017 12:03 AM CDT) Pathologist [facility] WBC 8.7 3.5 - 10.5 10? 3 /uL 09/18/2017 12:31 AM [facility] RBC 3.09(L) 4.30 - 5.70 10? 6 /uL 09/18/2017 12:31 AM [facility] Hemoglobin 8.8(L) 13.5 - 17.5 g/dL 09/18/2017 12:31 AM [facility] Hematocrit 29.6(L) 39.0 - 50.0 % 09/18/2017 12:31 AM [facility] MCV 95.8 81.0 - 97.0 fL 09/18/2017 12:31 AM [facility] MCH 28.5 28.0 - 34.0 pg 09/18/2017 12:31 AM [facility] MCHC 29.7(L) 32.0 - 36.0 g/dL 09/18/2017 12:31 AM [facility] Platelet Count 199 150 - 400 10? 3 /uL 09/18/2017 12:31 AM [facility] RDW-SD 76.1(H) 36.0 - 50.0 fL 09/18/2017 12:31 AM [facility] RDW-CV 21.4(H) 11.2 - 14.8 % 09/18/2017 12:31 AM [facility] MPV 13.3(H) 9.3 - 12.8 fL 09/18/2017 12:31 AM [facility] Neutrophils % 79.2(H) 35.0 - 70.0 % 09/18/2017 12:31 AM [facility] Lymphocytes % 10.1(L) 19.7 - 55.1 % 09/18/2017 12:31 AM [facility] Monocytes % 7.4 3.0 - 15.0 % 09/18/2017 12:31 AM [facility] Eosinophils % 3.1 0.0 - 6.0 % 09/18/2017 12:31 AM [facility] Basophil % 0.2 0.0 - 1.5 % 09/18/2017 12:31 AM [facility] Neutrophils Absolute 6.9 1.6 - 7.0 10? 3 /uL 09/18/2017 12:31 AM [facility] Lymphocyte Absolute 0.9 0.8 - 2.9 10? 3 /uL 09/18/2017 12:31 AM [facility] Monocytes Absolute 0.64 0.14 - 0.66 10? 3 /uL 09/18/2017 12:31 AM [facility] Eosinophils Absolute 0.27(H) 0.00 - 0.22 10? 3 /uL 09/18/2017 12:31 AM [facility] Basophils Absolute 0.02 0.00 - 0.06 10? 3 /uL 09/18/2017 12:31 AM [facility] Immature Granulocytes % 0.3 0.0 - 1.0 % 09/18/2017 12:31 AM [facility] Blood BLOOD SPECIMEN / Unknown Lab Venipuncture / Unknown 09/18/2017 12:03 AM CDT 09/18/2017 12:03 AM [facility] Rebecca Melendez HEEL WASHER STRINGING MACHINE OPERATOR-PLATER SUPERVISOR LAB - HEMATOLOGY ORDERABLES Performing Organization Address City/State/[facility] Co de Phone Number [facility] [address] [phone] * (ABNORMAL) BASIC METABOLIC PANEL (CALCIUM TOTAL) (09/18/2017 12:03 AM CDT) BUN 25 7 - 26 mg/dL 09/18/2017 12:[address] [facility] Creatinine 0.6 0.6 - 1.2 mg/dL 09/18/2017 12:48 AM [facility] Sodium 140 136 - 145 mmol/L 09/18/2017 12:48 AM [facility] Potassium 3.4(L) 3.5 - 4.5 mmol/L 09/18/2017 12:48 AM [facility] Chloride 95(L) 98 - 107 mmol/L 09/18/2017 12:48 AM [facility] CO2 35(H) 22 - 29 mmol/L 09/18/2017 12:48 AM [facility] Glucose 135(H) 70 - 115 mg/dL 09/18/2017 12:48 AM [facility] Calcium 9.0 8.4 - 10.2 mg/dL 09/18/2017 12:48 AM [facility] Anion Gap 13 8 - 18 09/18/2017 12:48 AM [facility] BUN/Creatinine Ratio 42(H) 7 - 23 09/18/2017 12:48 AM [facility] Osmolality Calculated 296 270 - 300 mOsm/kg 09/18/2017 12:48 AM [facility] eGFR >60 >60 mL/min/1.7 3 m2 09/18/2017 12:48 AM [facility] Blood BLOOD SPECIMEN / Unknown Lab Venipuncture / Unknown 09/18/2017 12:03 AM CDT 09/18/2017 12:03 AM CDT Rebecca Melendez APRN-PLATER SUPERVISOR LAB - CHEMISTRY O RDERABLES [address] [phone] * (ABNORMAL) GLUCOSE - POINT OF CARE (09/17/2017 7:18 PM CDT) Pathologist [facility] Glucose WB/POC 157(H) 70 - 115 mg/dL 09/17/2017 7:31 PM CDT [facility] Blood BLOOD SPECIMEN / Unknown 09/17/2017 7:18 PM CDT 09/17/2017 7:31 PM CDT Narrative [facility] - 09/17/2017 7:31 PM CDT Corporate Tax Manager: SLACK ??QUE Jason Nash MD LAB - POINT OF CARE ORDERABLES [facility] [address] [place] [address] * (ABNORMAL) GLUCOSE - POINT OF CARE (09/17/2017 12:04 PM CDT) Glucose WB/POC 164(H) 70 - 115 mg/dL 09/17/2017 12:24 PM CDT [facility] Blood BLOOD SPECIMEN / Unknown 09/17/2017 12:04 PM CDT 09/17/2017 12:23 PM CDT Narrative [facility] - 09/17/2017 12:24 PM CDT Corporate Tax Manager: SLACK ??QUE Jason Nash MD LAB - POINT OF CARE ORDERABLES [address] [phone] * (ABNORMAL) RBC MORPHOLOGY (09/17/2017 4:33 AM CDT) Platelet Estimate Adequate Adequate 09/17/2017 5:55 AM CDT [facility] Microcytes 1+(A) None 09/17/2017 5:55 AM CDT [facility] Hypochromia 1+(A) None 09/17/2017 5:55 AM CDT [facility] Ovalocytes 1+(A) None 09/17/2017 5:55 AM CDT [facility] Blood BLOOD SPECIMEN / Unknown Venipuncture / Unknown 09/17/2017 4:33 AM CDT 09/17/2017 4:42 AM CDT Rebecca Melendez [facility] LAB - HEMATOLOGY ORDERABLES Performing Organization Address City/[facility]/ZIP Co de Phone Number [address] [phone] * MAGNESIUM BLOOD (09/17/2017 4:33 AM CDT) Pathologist [facility] Magnesium 1.9 1.6 - 2.6 mg/dL 09/17/2017 5:16 AM [facility] Blood BLOOD SPECIMEN / Unknown Venipuncture / Unknown 09/17/2017 4:33 AM CDT 09/17/2017 4:42 AM CDT Rebecca L Al [facility] LAB - CHEMISTRY O RDERABLES Performing Organization Address [facility]/ZIP Co de Phone Number [address] [phone] * (ABNORMAL) CBC W AUTO DIFFERENTIAL (09/17/2017 4:33 AM CDT) [facility] WBC 8.1 3.5 - 10.5 10? 3 /uL 09/17/2017 5:05 AM [facility] RBC 3.04(L) 4.30 - 5.70 10? 6 /uL 09/17/2017 5:05 AM [facility] Hemoglobin 8.7(L) 13.5 - 17.5 g/dL 09/17/2017 5:05 AM [facility] Hematocrit 29.2(L) 39.0 - 50.0 % 09/17/2017 5:05 AM [facility] MCV 96.1 81.0 - 97.0 fL 09/17/2017 5:05 AM [facility] MCH 28.6 28.0 - 34.0 pg 09/17/2017 5:05 AM [facility] MCHC 29.8(L) 32.0 - 36.0 g/dL 09/17/2017 5:05 AM [facility] Platelet Count 182 150 - 400 10? 3 /uL 09/17/2017 5:05 AM [facility] RDW-SD 76.7(H) 36.0 - 50.0 fL 09/17/2017 5:05 AM [facility] RDW-CV 21.9(H) 11.2 - 14.8 % 09/17/2017 5:05 AM [facility] MPV 13.6(H) 9.3 - 12.8 fL 09/17/2017 5:05 AM [facility] Neutrophils % 78.7(H) 35.0 - 70.0 % 09/17/2017 5:05 AM [facility] Lymphocytes % 10.7(L) 19.7 - 55.1 % 09/17/2017 5:05 AM [facility] Monocytes % 8.0 3.0 - 15.0 % 09/17/2017 5:05 AM [facility] Eosinophils % 2.1 0.0 - 6.0 % 09/17/2017 5:05 AM [facility] Basophil % 0.5 0.0 - 1.5 % 09/17/2017 5:05 AM [facility] Neutrophils Absolute 6.4 1.6 - 7.0 10? 3 /uL 09/17/2017 5:05 AM [facility] Lymphocyte Absolute 0.9 0.8 - 2.9 10? 3 /uL 09/17/2017 5:05 AM [facility] Monocytes Absolute 0.65 0.14 - 0.66 10? 3 /uL 09/17/2017 5:05 AM [facility] Eosinophils Absolute 0.17 0.00 - 0.22 10? 3 /uL 09/17/2017 5:05 AM [facility] Basophils Absolute 0.04 0.00 - 0.06 10? 3 /uL 09/17/2017 5:05 AM [facility] Immature Granulocytes % 0.5 0.0 - 1.0 % 09/17/2017 5:05 AM [facility] Blood BLOOD SPECIMEN / Unknown Venipuncture / Unknown 09/17/2017 4:33 AM CDT 09/17/2017 4:42 AM T Rebecca Melendez HEEL WASHER STRINGING MACHINE OPERATOR-PLATER SUPERVISOR LAB - HEMATOLOGY ORDERABLES [facility] [address] [phone] * (ABNORMAL) BASIC METABOLIC PANEL (CALCIUM TOTAL) (09/17/2017 4:33 AM CDT) [facility] BUN 19 7 - 26 mg/dL 09/17/2017 5:16 AM [facility] Creatinine 0.6 0.6 - 1.2 mg/dL 09/17/2017 5:16 AM [facility] Sodium 139 136 - 145 mmol/L 09/17/2017 5:16 AM [facility] Potassium 3.6 3.5 - 4.5 mmol/L 09/17/2017 5:16 AM [facility] Chloride 96(L) 98 - 107 mmol/L 09/17/2017 5:16 AM [facility] CO2 32(H) 22 - 29 mmol/L 09/17/2017 5:16 AM [facility] Glucose 120(H) 70 - 115 mg/dL 09/17/2017 5:16 AM [facility] Calcium 8.8 8.4 - 10.2 mg/dL 09/17/2017 5:16 AM [facility] Anion Gap 15 8 - 18 09/17/2017 5:16 AM [facility] BUN/Creatinine Ratio 32(H) 7 - 23 09/17/2017 5:16 AM [facility] Osmolality Calculated 291 270 - 300 mOsm/kg 09/17/2017 5:16 AM [facility] eGFR >60 >60 mL/min/1.7 3 m2 09/17/2017 5:16 AM [facility] Blood BLOOD SPECIMEN / Unknown Venipuncture / Unknown 09/17/2017 4:33 AM CDT 09/17/2017 4:42 AM CDT Rebecca Melendez APRN-PLATER SUPERVISOR LAB - [place] [address], [facility] [phone] * PHOSPHORUS BLOOD (09/17/2017 4:33 AM CDT) [facility] Phosphorus 3.2 2.3 - 4.7 mg/dL 09/17/2017 5:16 AM CDT [facility] Blood BLOOD SPECIMEN / Unknown Venipuncture / Unknown 09/17/2017 4:33 AM CDT 09/17/2017 4:42 AM CDT Rebecca Melendez HEEL WASHER STRINGING MACHINE OPERATOR-PLATER SUPERVISOR LAB - CHEMISTRY O RDERABLES [address] [phone] * GLUCOSE - POINT OF CARE (09/16/2017 11:18 PM CDT) Glucose WB/POC 111 70 - 115 mg/dL 09/16/2017 11:32 PM CDT [facility] Blood BLOOD SPECIMEN / Unknown 09/16/2017 11:18 PM CDT 09/16/2017 11:32 PM CDT Narrative [facility] - 09/16/2017 11:32 PM CDT Corporate Tax Manager: AMY ??CHRISTIANO Jason Nash MD LAB - POINT OF CARE ORDERABLES Performing Organization Address [facility]/ZIP Co de Phone Number [address] [phone] * GLUCOSE - POINT OF CARE (09/16/2017 6:41 PM CDT) Glucose WB/POC 98 70 - 115 mg/dL 09/16/2017 6:55 PM CDT [facility] Blood BLOOD SPECIMEN / Unknown 09/16/2017 6:41 PM CDT 09/16/2017 6:55 PM CDT Narrative [facility] - 09/16/2017 6:55 PM CDT Corporate Tax Manager: SG ??JOSE L Jason Nash MD LAB - POINT OF CARE ORDERABLES [address] [phone] * GLUCOSE - POINT OF CARE (09/16/2017 12:22 PM CDT) Glucose WB/POC 91 70 - 115 mg/dL 09/16/2017 12:35 PM CDT [facility] Blood BLOOD SPECIMEN / Unknown 09/16/2017 12:22 PM CDT 09/16/2017 12:35 PM CDT Narrative [facility] - 09/16/2017 12:35 PM CDT Corporate Tax Manager: CHELA ??GLADYS Jason Nash MD LAB - POINT OF CARE ORDERABLES Performing Organization Address City/[facility]/ZIP Co de Phone Number [address] [phone] * GLUCOSE - POINT OF CARE (09/16/2017 5:56 AM CDT) Glucose WB/POC 79 70 - 115 mg/dL 09/16/2017 6:10 AM CDT [facility] Blood BLOOD SPECIMEN / Unknown 09/16/2017 5:56 AM CDT 09/16/2017 6:10 AM CDT Narrative [facility] - 09/16/2017 6:10 AM CDT Corporate Tax Manager: LYUBOV ??RADHA Jason Nash MD LAB - POINT OF CARE ORDERABLES Performing Organization Address City/[facility]/ZIP Co de Phone Number [address] [phone] * (ABNORMAL) RBC MORPHOLOGY (09/16/2017 4:13 AM CDT) Platelet Estimate Adequate Adequate 09/16/2017 5:12 AM CDT [facility] Anisocytosis 1+(A) None 09/16/2017 5:12 AM CDT [facility] Hypochromia 1+(A) None 09/16/2017 5:12 AM CDT [facility] Blood BLOOD SPECIMEN / Unknown Venipuncture / Unknown 09/16/2017 4:13 AM CDT 09/16/2017 4:18 AM CDT Veronica Costello MD LAB - HEMATOLOGY ORD ERABLES [facility] [address] [phone] * (ABNORMAL) CBC W AUTO DIFFERENTIAL (09/16/2017 4:13 AM T) WBC 8.5 3.5 - 10.5 10? 3 /uL 09/16/2017 4:25 AM [facility] RBC 2.87(L) 4.30 - 5.70 10? 6 /uL 09/16/2017 4:25 AM [facility] Hemoglobin 8.1(L) 13.5 - 17.5 g/dL 09/16/2017 4:25 AM [facility] Hematocrit 27.6(L) 39.0 - 50.0 % 09/16/2017 4:25 AM [facility] MCV 96.2 81.0 - 97.0 fL 09/16/2017 4:25 AM [facility] MCH 28.2 28.0 - 34.0 pg 09/16/2017 4:25 AM [facility] MCHC 29.3(L) 32.0 - 36.0 g/dL 09/16/2017 4:25 AM [facility] Platelet Count 172 150 - 400 10? 3 /uL 09/16/2017 4:25 AM [facility] RDW-SD 76.1(H) 36.0 - 50.0 fL 09/16/2017 4:25 AM [facility] RDW-CV 22.0(H) 11.2 - 14.8 % 09/16/2017 4:25 AM [facility] MPV 12.8 9.3 - 12.8 fL 09/16/2017 4:25 AM [facility] Neutrophils % 80.7(H) 35.0 - 70.0 % 09/16/2017 4:25 AM [facility] Lymphocytes % 9.9(L) 19.7 - 55.1 % 09/16/2017 4:25 AM [facility] Monocytes % 7.0 3.0 - 15.0 % 09/16/2017 4:25 AM [facility] Eosinophils % 2.2 0.0 - 6.0 % 09/16/2017 4:25 AM CDT [facility] Basophil % 0.2 0.0 - 1.5 % 09/16/2017 4:25 AM T [facility] Neutrophils Absolute 6.8 1.6 - 7.0 10? 3 /uL 09/16/2017 4:25 AM T [facility] Lymphocyte Absolute 0.8 0.8 - 2.9 10? 3 /uL 09/16/2017 4:25 AM T [facility] Monocytes Absolute 0.59 0.14 - 0.66 10? 3 /uL 09/16/2017 4:25 AM T [facility] Eosinophils Absolute 0.19 0.00 - 0.22 10? 3 /uL 09/16/2017 4:25 AM T [facility] Basophils Absolute 0.02 0.00 - 0.06 10? 3 /uL 09/16/2017 4:25 AM [facility] Immature Granulocytes % 0.7 0.0 - 1.0 % 09/16/2017 4:25 AM T [facility] Blood BLOOD SPECIMEN / Unknown Venipuncture / Unknown 09/16/2017 4:13 AM CDT 09/16/2017 4:18 AM CDT Veronica Costello MD LAB - HEMATOLOGY ORD ERABLES [address] [phone] * MAGNESIUM BLOOD (09/16/2017 4:13 AM CDT) Magnesium 2.1 1.6 - 2.6 mg/dL 09/16/2017 4:39 AM CDT [facility] Blood BLOOD SPECIMEN / Unknown Venipuncture / Unknown 09/16/2017 4:13 AM CDT 09/16/2017 4:17 AM CDT Veronica Costello MD LAB - CHEMISTRY ORDMarj KLINE [address] [phone] * (ABNORMAL) BASIC METABOLIC PANEL (CALCIUM TOTAL) (09/16/2017 4:13 AM CDT) BUN 18 7 - 26 mg/dL 09/16/2017 4:39 AM [facility] Creatinine 0.6 0.6 - 1.2 mg/dL 09/16/2017 4:39 AM [facility] Sodium 138 136 - 145 mmol/L 09/16/2017 4:39 AM [facility] Potassium 4.1 3.5 - 4.5 mmol/L 09/16/2017 4:39 AM [facility] Chloride 96(L) 98 - 107 mmol/L 09/16/2017 4:39 AM [facility] CO2 32(H) 22 - 29 mmol/L 09/16/2017 4:39 AM [facility] Glucose 92 70 - 115 mg/dL 09/16/2017 4:39 AM [facility] Calcium 8.8 8.4 - 10.2 mg/dL 09/16/2017 4:39 AM [facility] Anion Gap 14 8 - 18 09/16/2017 4:39 AM [facility] BUN/Creatinine Ratio 30(H) 7 - 23 09/16/2017 4:39 AM [facility] Osmolality Calculated 288 270 - 300 mOsm/kg 09/16/2017 4:39 AM [facility] eGFR >60 >60 mL/min/1.7 3 m2 09/16/2017 4:39 AM [facility] Blood BLOOD SPECIMEN / Unknown Venipuncture / Unknown 09/16/2017 4:13 AM CDT 09/16/2017 4:17 AM T Veronica Costello MD LAB - CHEMISTRY ROYCE KLINE [facility] Organization Address City/State/ZIP Co de Phone Number [address] [phone] * PHOSPHORUS BLOOD (09/16/2017 4:13 AM CDT) Pathologist [facility] Phosphorus 2.6 2.3 - 4.7 mg/dL 09/16/2017 4:39 AM CDT [facility] Blood BLOOD SPECIMEN / Unknown Venipuncture / Unknown 09/16/2017 4:13 AM CDT 09/16/2017 4:17 AM CDT Delphine Waddell APRN-PLATER SUPERVISOR LAB - CHEMISTRY ORDERABLES Performing Organization Address City/[facility]/[place] [address], [facility] [phone] * GLUCOSE - POINT OF CARE (09/16/2017 12:23 AM CDT) Glucose WB/POC 89 70 - 115 mg/dL 09/16/2017 12:36 AM CDT [facility] Blood BLOOD SPECIMEN / Unknown 09/16/2017 12:23 AM CDT 09/16/2017 12:36 AM CDT Narrative [facility] - 09/16/2017 12:36 AM CDT Corporate Tax Manager: LYUBOV ??RADHA Jason Nash MD LAB - POINT OF CARE ORDERABLES Performing Organization Address City/[facility]/[place] [address], [facility] [phone] * GLUCOSE - POINT OF CARE (09/15/2017 6:01 PM CDT) Glucose WB/POC 99 70 - 115 mg/dL 09/15/2017 6:33 PM CDT [facility] Blood BLOOD SPECIMEN / Unknown 09/15/2017 6:01 PM CDT 09/15/2017 6:33 PM CDT Narrative [facility] - 09/15/2017 6:33 PM CDT Corporate Tax Manager: SG ??JOSE L Jason Nash MD LAB - [place] [address], [facility] [phone] * GLUCOSE - POINT OF CARE (09/15/2017 11:56 AM CDT) Glucose WB/POC 104 70 - 115 mg/dL 09/15/2017 12:09 PM CDT [facility] Blood BLOOD SPECIMEN / Unknown 09/15/2017 11:56 AM CDT 09/15/2017 12:09 PM CDT Narrative [facility] - 09/15/2017 12:09 PM CDT Corporate Tax Manager: CHELA ??GLADYS Jason Nash MD LAB - POINT OF CARE ORDERABLES Performing Organization Address City/State/[facility] Co de Phone Number [address] [phone] * EGD (09/15/2017 8:58 AM CDT) Report [...] insertion. The externally ? removable 24 Fr [employer] gastrostomy tube was lubricated. The G-tube ? [...] Procedure Code(s): ? --- Professional --- ? 97476, Esophagogastroduoden oscopy, flexible, transoral; with directed ? placement of percutaneous gastrostomy tube Diagnosis Code(s): ?--- Professional --- ?R13.10, Dysphagia, unspecified ?Z43.1, Encounter for attention to gastrostomy ?R63.3, Feeding difficulties CPT copyright 2016 [employer]. All rights reserved. The codes documented in this report are preliminary and upon computer language coder review may be revised to meet current compliance requirements. Louis Mcconnell MD 09/15/2017 10:44:23 AM Note Initiated On: 09/15/2017 8:58 AM Number of Addenda: 0 ? [facility] ? [address] 09/15/2017 8:58 AM CDT Louis Mcconnell MD GI PROCEDURE ORDERAB LES Performing Organization Address City/[facility]/ZIP Co de Phone Number [facility] * GLUCOSE - POINT OF CARE (09/15/2017 8:05 AM CDT) Glucose WB/POC 97 70 - 115 mg/dL 09/15/2017 8:18 AM CDT [facility] Blood BLOOD SPECIMEN / Unknown 09/15/2017 8:05 AM CDT 09/15/2017 8:18 AM CDT Narrative [facility] - 09/15/2017 8:18 AM CDT Corporate Tax Manager: CHELA ?CRISTINA Jason Nash MD LAB - POINT OF CARE ORDERABLES Performing Organization Address [facility] Co de Phone Number [address] [phone] * XR CHEST 1VW PORTABLE (09/15/2017 5:22 [...] is normal. Dictated by Jay Bowens MD (vice president network). This report was approved ??by Jay Bowens [...] is normal. Dictated by Jay Bowens MD (vice president network). This report was approved by Jay Bowens [...] 8.6 10? 3 /uL 09/15/2017 6:06 AM [facility] Total Cell Count 100 09/16/19 18 6:06 AM [facility] Neutrophils Absolute Manual 7.48(H) 1.60 - 7.00 10? 3 /uL 09/15/2017 6:06 AM [facility] Comment:(BANDS+SEGS) x WBC = NEUT # (ANC) Lymphocyte Absolute Manual 0.77(L) 0.80 - 2.90 10? 3 /uL 09/15/2017 6:06 AM [facility] Monocytes Absolute Manual 0.34 0.14 - 0.66 10? 3 /uL 09/15/2017 6:06 AM [facility] Neutrophil % Manual 87(H) 30 - 60 % 09/15/2017 6:06 AM [facility] Lymphocyte % Manual 9(L) 20 - 45 % 09/15/2017 6:06 AM [facility] Monocytes % Manual 4 2 - 10 % 09/15/2017 6:06 AM [facility] Platelet Estimate Adequate Adequate 09/15/2017 6:06 AM [facility] Anisocytosis 1+(A) None 09/15/2017 6:06 AM [facility] Hypochromia 1+(A) None 09/15/2017 6:06 AM [facility] Schistocytes Few(A) None 09/15/2017 6:06 AM [facility] Ovalocytes 1+(A) None 09/15/2017 6:06 AM [facility] Blood BLOOD SPECIMEN / Unknown Venipuncture / Unknown 09/15/2017 4:41 AM CDT 09/15/2017 4:56 AM CDT Veronica Costello MD LAB - HEMATOLOGY ORD ERABLES [facility] [address] [phone] * TYPE + SCREEN PANEL (09/15/2017 4:41 AM CDT) [facility] Antibody Screen NEG 8 6:06 AM CDT [facility] ABO Rh A POS 09/15/2017 6:06 AM CDT [facility] Blood Bank BLOOD SPECIMEN / Unknown Venipuncture / Unknown 09/15/2017 4:41 AM CDT 09/15/2017 5:13 AM CDT Delphine Nadira COSTAN-PLATER SUPERVISOR LAB - BLOOD BANK ORDERABLES Performing Organization Address City/[facility] Co de Phone Number [facility] [address] * (ABNORMAL) CBC W AUTO DIFFERENTIAL (09/15/2017 4:41 AM CDT) [facility] WBC 8.6 3.5 - 10.5 10? 3 /uL 09/15/2017 5:20 AM [facility] RBC 2.89(L) 4.30 - 5.70 10? 6 /uL 09/15/2017 5:20 AM [facility] Hemoglobin 8.2(L) 13.5 - 17.5 g/dL 09/15/2017 5:20 AM [facility] Hematocrit 27.6(L) 39.0 - 50.0 % 09/15/2017 5:20 AM [facility] MCV 95.5 81.0 - 97.0 fL 09/15/2017 5:20 AM [facility] MCH 28.4 28.0 - 34.0 pg 09/15/2017 5:20 AM [facility] MCHC 29.7(L) 32.0 - 36.0 g/dL 09/15/2017 5:20 AM [facility] Platelet Count 186 150 - 400 10? 3 /uL 09/15/2017 5:20 AM [facility] RDW-SD 74.8(H) 36.0 - 50.0 fL 09/15/2017 5:20 AM CDT [facility] RDW-CV 22.0(H) 11.2 - 14.8 % 09/15/2017 5:20 AM CDT [facility] MPV 13.1(H) 9.3 - 12.8 fL 09/15/2017 5:20 AM CDT [facility] Blood BLOOD SPECIMEN / Unknown Venipuncture / Unknown 09/15/2017 4:41 AM CDT 09/15/2017 4:56 AM CDT Veronica Costello MD LAB - HEMATOLOGY ORD ERABLES [address] [phone] * MAGNESIUM BLOOD (09/15/2017 4:41 AM CDT) Magnesium 1.8 1.6 - 2.6 mg/dL 09/15/2017 5:51 AM T [facility] Blood BLOOD SPECIMEN / Unknown Venipuncture / Unknown 09/15/2017 4:41 AM CDT 09/15/2017 4:56 AM CDT Veronica Costello MD LAB - CHEMISTRY ORDE RABLES [address] [phone] * (ABNORMAL) BASIC METABOLIC PANEL (CALCIUM TOTAL) (09/15/2017 4:41 AM CDT) BUN 23 7 - 26 mg/dL 09/15/2017 5:51 AM T [facility] Creatinine 0.6 0.6 - 1.2 mg/dL 09/15/2017 5:51 AM T [facility] Sodium 138 136 - 145 mmol/L 09/15/2017 5:51 AM T [facility] Potassium 3.8 3.5 - 4.5 mmol/L 09/15/2017 5:51 AM T [facility] Chloride 95(L) 98 - 107 mmol/L 09/15/2017 5:51 AM T [facility] CO2 33(H) 22 - 29 mmol/L 09/15/2017 5:51 AM [facility] Glucose 103 70 - 115 mg/dL 09/15/2017 5:51 AM [facility] Calcium 8.8 8.4 - 10.2 mg/dL 09/15/2017 5:51 AM [facility] Anion Gap 14 8 - 18 09/15/2017 5:51 AM [facility] BUN/Creatinine Ratio 38(H) 7 - 23 09/15/2017 5:51 AM [facility] Osmolality Calculated 290 270 - 300 mOsm/kg 09/15/2017 5:51 AM [facility] eGFR >60 >60 mL/min/1.7 3 m2 09/15/2017 5:51 AM [facility] Blood BLOOD SPECIMEN / Unknown Venipuncture / Unknown 09/15/2017 4:41 AM CDT 09/15/2017 4:56 AM CDT Veronica Costello MD LAB - CHEMISTRY ROYCE KLINE [facility] Organization Address City/State/ZIP Co de Phone Number [address] [phone] * (ABNORMAL) B-TYPE NATRIURETIC PEPTIDE (09/15/2017 4:41 AM CDT) BNP 694(H) See Comment pg/mL 09/15/2017 5:35 AM [facility] Comment: A decision threshold of 100 [...] Costello MD LAB - CHEMISTRY ROYCE KLINE [facility] Organization Address [facility]/State/[facility] Co de Phone Number [facility] [address] [phone] * (ABNORMAL) PT-INR [facility] (09/15/2017 4:41 AM CDT) PT 15.1(H) 12.1 - 14.8 Seconds 09/15/2017 5:33 AM CDT [facility] INR 1.2 See Comment 09/15/2017 5:33 AM CDT [facility] Comment: Suggested therapeutic range for low-intensity coumadin [...] - COAGULATION OR DERABLES Performing Organization Address City/[facility]/ZIP Co de Phone Number [address] [phone] * (ABNORMAL) GLUCOSE - POINT OF CARE (09/15/2017 2:23 AM CDT) Glucose WB/POC 145(H) 70 - 115 mg/dL 09/15/2017 2:38 AM CDT [facility] Blood BLOOD SPECIMEN / Unknown 09/15/2017 2:23 AM CDT 09/15/2017 2:38 AM CDT [facility] - 09/15/2017 2:38 AM CDT Corporate Tax Manager: SHEREE ROJAS Jason Nash MD LAB - POINT OF CARE ORDERABLES Performing Organization Address [facility]/ZIP Co de Phone Number [address] [phone] * (ABNORMAL) GLUCOSE - POINT OF CARE (09/14/2017 7:45 PM CDT) Glucose WB/POC 165(H) 70 - 115 mg/dL 09/14/2017 8:08 PM CDT [facility] Blood BLOOD SPECIMEN / Unknown 09/14/2017 7:45 PM CDT 09/14/2017 8:08 PM CDT Narrative [facility] - 09/14/2017 8:08 PM CDT Corporate Tax Manager: SHEREE ROJAS Jason Nash MD LAB - POINT OF CARE ORDERABLES Performing Organization Address [facility]/[place] [address], [facility] [phone] * (ABNORMAL) GLUCOSE - POINT OF CARE (09/14/2017 6:27 PM CDT) Glucose WB/POC 170(H) 70 - 115 mg/dL 09/14/2017 6:48 PM CDT [facility] Blood BLOOD SPECIMEN / Unknown 09/14/2017 6:27 PM CDT 09/14/2017 6:48 PM CDT Narrative [facility] - 09/14/2017 6:48 PM CDT Corporate Tax Manager: STRUM ?WYATT Jason Nash MD LAB - POINT OF CARE ORDERABLES Performing Organization Address [facility]/ZIP Co de Phone Number [address] [phone] * (ABNORMAL) GLUCOSE - POINT OF CARE (09/14/2017 12:46 PM CDT) Glucose WB/POC 183(H) 70 - 115 mg/dL 09/14/2017 1:16 PM CDT [facility] Blood BLOOD SPECIMEN / Unknown 09/14/2017 12:46 PM CDT 09/14/2017 1:16 PM CDT [facility] - 09/14/2017 1:16 PM CDT Corporate Tax Manager: STRUM ?WYATT Jason Nash MD LAB - POINT OF CARE ORDERABLES Performing Organization Address [facility]/ZIP Co de Phone Number [address] [phone] * (ABNORMAL) GLUCOSE - POINT OF CARE (09/14/2017 6:34 AM CDT) Glucose WB/POC 149(H) 70 - 115 mg/dL 09/14/2017 6:48 AM CDT [facility] Blood BLOOD SPECIMEN / Unknown 09/14/2017 6:34 AM CDT 09/14/2017 6:48 AM CDT [facility] - 09/14/2017 6:48 AM CDT Corporate Tax Manager: SHEREE ??GRECIA Jason Nash MD LAB - POINT OF CARE ORDERABLES [address] [phone] * XR CHEST 1VW PORTABLE (09/14/2017 6:19 [...] vascular congestion. Dictated by Jay Bowens MD (vice president network). I, Dr. SULLY RUANO M.D. have personally [...] vascular congestion. Dictated by Jay Bowens MD (vice president network). I, Dr. SULLY RUANO M.D. have personally reviewed and interpreted this examination/study. This report was electronically signed by SULLY RUANO M.D. on 09/14/2017 10:19 AM . Veronica Costello MD DIAGNOSTIC IMAGING O RDERABLES * (ABNORMAL) DIFFERENTIAL MANUAL (09/14/2017 5:21 AM CDT) WBC (corrected for NRBC) 10.1 10? 3 /uL 09/14/2017 6:45 AM [facility] Total Cell Count 100 09/14/2017 6:45 AM [facility] Neutrophils Absolute Manual 8.08(H) 1.60 - 7.00 10? 3 /uL 09/14/2017 6:45 AM [facility] Comment:(BANDS+SEGS) x WBC = NEUT # (ANC) Lymphocyte Absolute Manual 0.61(L) 0.80 - 2.90 10? 3 /uL 09/14/2017 6:45 AM [facility] Monocytes Absolute Manual 1.31(H) 0.14 - 0.66 10? 3 /uL 09/14/2017 6:[address] [facility] [employer] Eosinophils Absolute Manual 0.10 0.00 - 0.22 10? 3 /uL 09/14/2017 6:45 AM [facility] Band % Manual 2 0 - 10 % 09/14/2017 6:45 AM [facility] Neutrophil % Manual 78(H) 30 - 60 % 09/14/2017 6:45 AM [facility] Lymphocyte % Manual 6(L) 20 - 45 % 09/14/2017 6:[address] [facility] [facility] [facility] Monocytes % Manual 13(H) 2 - 10 % 09/14/2017 6:45 AM [facility] Eosinophils % Manual 1 1 - 6 % 09/14/2017 6:45 AM [facility] Platelet Estimate Adequate Adequate 09/14/2017 6:45 AM [facility] RBC Morphology Normal 09/14/2017 6:45 AM [facility] Blood BLOOD SPECIMEN / Unknown Venipuncture / Unknown 09/14/2017 5:21 AM CDT 09/14/2017 5:30 AM T Veronica Costello MD LAB - HEMATOLOGY ORD ERABLES [facility] [address] [phone] * (ABNORMAL) CBC W AUTO DIFFERENTIAL (09/14/2017 5:21 AM T) WBC 10.1 3.5 - 10.5 10? 3 /uL 09/14/2017 5:52 AM [facility] Comment:The WBC count is cor rected by the instrument for nRBC's RBC 3.00(L) 4.30 - 5.70 10? 6 /uL 09/14/2017 5:52 AM [facility] Hemoglobin 8.7(L) 13.5 - 17.5 g/dL 09/14/2017 5:52 AM [facility] Hematocrit 28.4(L) 39.0 - 50.0 % 09/14/2017 5:52 AM [facility] MCV 94.7 81.0 - 97.0 fL 09/14/2017 5:52 AM [facility] MCH 29.0 28.0 - 34.0 pg 09/14/2017 5:52 AM [facility] MCHC 30.6(L) 32.0 - 36.0 g/dL 09/14/2017 5:52 AM [facility] Platelet Count 224 150 - 400 10? 3 /uL 09/14/2017 5:52 AM [facility] RDW-SD 75.0(H) 36.0 - 50.0 fL 09/14/2017 5:52 AM [facility] RDW-CV 21.9(H) 11.2 - 14.8 % 09/14/2017 5:52 AM CDT [facility] MPV 13.2(H) 9.3 - 12.8 fL 09/14/2017 5:52 AM CDT [facility] nRBC Absolute 0.15(H) 0 10? 3 /uL 09/14/2017 5:52 AM CDT [facility] nRBC Auto 1.5(H) 0 /100 WBC 09/14/2017 5:52 AM CDT [facility] Reflex Status Manual Differential to follow. 09/14/2017 5:52 AM CDT [facility] Blood BLOOD SPECIMEN / Unknown Venipuncture / Unknown 09/14/2017 5:21 AM CDT 09/14/2017 5:30 AM CDT Veronica Costello MD LAB - HEMATOLOGY ORD ERABLES Performing Organization Address City/[facility]/ZIP Co de Phone Number [address] [phone] * MAGNESIUM BLOOD (09/14/2017 5:21 AM CDT) Magnesium 1.6 1.6 - 2.6 mg/dL 09/14/2017 5:53 AM T [facility] Blood BLOOD SPECIMEN / Unknown Venipuncture / Unknown 09/14/2017 5:21 AM CDT 09/14/2017 5:30 AM CDT Veronica Costello MD LAB - CHEMISTRY ORDMarj RABANGELIA [address] [phone] * (ABNORMAL) BASIC METABOLIC PANEL (CALCIUM TOTAL) (09/14/2017 5:21 AM CDT) BUN 21 7 - 26 mg/dL 09/14/2017 5:53 AM CDT [facility] Creatinine 0.6 0.6 - 1.2 mg/dL 09/14/2017 5:53 AM CDT [facility] Sodium 138 136 - 145 mmol/L 09/14/2017 5:53 AM [facility] Potassium 3.7 3.5 - 4.5 mmol/L 09/14/2017 5:53 AM [facility] Chloride 96(L) 98 - 107 mmol/L 09/14/2017 5:53 AM [facility] CO2 32(H) 22 - 29 mmol/L 09/14/2017 5:53 AM [facility] Glucose 136(H) 70 - 115 mg/dL 09/14/2017 5:53 AM [facility] Calcium 8.7 8.4 - 10.2 mg/dL 09/14/2017 5:53 AM [facility] Anion Gap 14 8 - 18 09/14/2017 5:53 AM [facility] BUN/Creatinine Ratio 35(H) 7 - 23 09/14/2017 5:53 AM [facility] Osmolality Calculated 291 270 - 300 mOsm/kg 09/14/2017 5:53 AM [facility] eGFR >60 >60 mL/min/1.7 3 m2 09/14/2017 5:53 AM [facility] Blood BLOOD SPECIMEN / Unknown Venipuncture / Unknown 09/14/2017 5:21 AM CDT 09/14/2017 5:30 AM CDT Veronica Costello MD LAB - CHEMISTRY ROYCE KLINE [address] [phone] * GLUCOSE - POINT OF CARE (09/14/2017 12:20 AM CDT) Glucose WB/POC 88 70 - 115 mg/dL 09/14/2017 12:35 AM T [facility] Blood BLOOD SPECIMEN / Unknown 09/14/2017 12:20 AM CDT 09/14/2017 12:35 AM CDT Narrative [facility] - 09/14/2017 12:35 AM CDT Corporate Tax Manager: SHEREE ??GRECIA Jason Nash MD LAB - POINT OF CARE ORDERABLES [place] [address] [phone] * XR ABDOMEN KUB (09/13/2017 7:16 PM [...] partially imaged. Dictated by Jay Bowens MD (vice president network). Dr. SULLY Stringer M.D. have personally reviewed [...] partially imaged. Dictated by Jay Bowens MD (vice president network). Dr. SULLY Stringer M.D. have personally reviewed and interpreted this examination/study. This report was electronically signed by SULLY RUANO M.D. on 09/14/2017 10:16 AM . Ivonne Rubin MD DIAGNOSTIC IMAGING O RDERABLES * GLUCOSE - POINT OF CARE (09/13/2017 6:45 PM CDT) Glucose WB/POC 91 70 - 115 mg/dL 09/13/2017 6:58 PM CDT [facility] Blood BLOOD SPECIMEN / Unknown 09/13/2017 6:45 PM CDT 09/13/2017 6:58 PM CDT [facility] - 09/13/2017 6:58 PM CDT Corporate Tax Manager: Ajith) ??GLENDY Jason Nash MD LAB - POINT OF CARE ORDERABLES [address] [phone] * GLUCOSE - POINT OF CARE (09/13/2017 11:14 AM CDT) Glucose WB/POC 108 70 - 115 mg/dL 09/13/2017 11:45 AM CDT [facility] Blood BLOOD SPECIMEN / Unknown 09/13/2017 11:14 AM CDT 09/13/2017 11:45 AM CDT [facility] - 09/13/2017 11:45 AM CDT Corporate Tax Manager: FELIPA(colton) ??GLENDY Jason Nash MD LAB - POINT OF CARE ORDERABLES [address] [phone] * GLUCOSE - POINT OF CARE (09/13/2017 7:02 AM CDT) Glucose WB/POC 101 70 - 115 mg/dL 09/13/2017 7:40 AM CDT [facility] Blood BLOOD SPECIMEN / Unknown 09/13/2017 7:02 AM CDT 09/13/2017 7:40 AM CDT [facility] - 09/13/2017 7:40 AM CDT Corporate Tax Manager: RIKKI ??DANIELLE Jason Nash MD LAB - POINT OF CARE ORDERABLES [address] [phone] * XR CHEST 1VW PORTABLE (09/13/2017 5:20 [...] remains enlarged. Dictated by Jay Bowens MD (vice president network). Dr. SILAS Stringer MD have personally reviewed [...] remains enlarged. Dictated by Jay Bowens MD (vice president network). Dr. SILAS Stringer MD have personally reviewed and interpreted this examination/study. This report was electronically signed by SILAS NGUYỄN MD on09/13/2017 11:53 AM . Veronica Costello MD DIAGNOSTIC IMAGING O RDERABLES * (ABNORMAL) RBC MORPHOLOGY (09/13/2017 5:17 AM CDT) Macrocytosis 1+(A) None 09/13/2017 6:30 AM [facility] Blood BLOOD SPECIMEN / Unknown Venipuncture / Unknown 09/13/2017 5:17 AM CDT 09/13/2017 5:23 AM CDT Veronica Costello MD LAB - HEMATOLOGY ORD ERABLES [facility] [address] [place] [address] * (ABNORMAL) CBC W AUTO DIFFERENTIAL (09/13/2017 5:17 AM CDT) WBC 8.9 3.5 - 10.5 10? 3 /uL 09/13/2017 6:30 AM [facility] RBC 2.95(L) 4.30 - 5.70 10? 6 /uL 09/13/2017 6:30 AM [facility] Hemoglobin 8.5(L) 13.5 - 17.5 g/dL 09/13/2017 6:30 AM [facility] Hematocrit 27.6(L) 39.0 - 50.0 % 09/13/2017 6:30 AM [facility] MCV 93.6 81.0 - 97.0 fL 09/13/2017 6:30 AM [facility] MCH 28.8 28.0 - 34.0 pg 09/13/2017 6:30 AM [facility] MCHC 30.8(L) 32.0 - 36.0 g/dL 09/13/2017 6:30 AM [facility] Platelet Count 213 150 - 400 10? 3 /uL 09/13/2017 6:30 AM [facility] RDW-SD 70.6(H) 36.0 - 50.0 fL 09/13/2017 6:30 AM [facility] RDW-CV 21.5(H) 11.2 - 14.8 % 09/13/2017 6:30 AM [facility] MPV 13.0(H) 9.3 - 12.8 fL 09/13/2017 6:30 AM [facility] Neutrophils % 82.9(H) 35.0 - 70.0 % 09/13/2017 6:30 AM [facility] Lymphocytes % 10.1(L) 19.7 - 55.1 % 09/13/2017 6:30 AM [facility] Monocytes % 3.4 3.0 - 15.0 % 09/13/2017 6:30 AM [facility] Eosinophils % 3.4 0.0 - 6.0 % 09/13/2017 6:30 AM [facility] Basophil % 0.2 0.0 - 1.5 % 09/13/2017 6:30 AM [facility] Neutrophils Absolute 7.4(H) 1.6 - 7.0 10? 3 /uL 09/13/2017 6:30 AM [facility] Lymphocyte Absolute 0.9 0.8 - 2.9 10? 3 /uL 09/13/2017 6:30 AM [facility] Monocytes Absolute 0.30 0.14 - 0.66 10? 3 /uL 09/13/2017 6:30 AM [facility] Eosinophils Absolute 0.30(H) 0.00 - 0.22 10? 3 /uL 09/13/2017 6:30 AM [facility] Basophils Absolute 0.02 0.00 - 0.06 10? 3 /uL 09/13/2017 6:30 AM [facility] Reflex Status Morphology review to follow. 09/13/2017 6:30 AM [facility] Comment:This is an appended report. These results have been appended to a previously final verified report. Immature Granulocytes % 0.8 0.0 - 1.0 % 09/13/2017 6:30 AM [facility] Blood BLOOD SPECIMEN / Unknown Venipuncture / Unknown 09/13/2017 5:17 AM CDT 09/13/2017 5:23 AM T Veronica Costello MD LAB - HEMATOLOGY ORD ERABLES [facility] [address] [place] [address] * MAGNESIUM BLOOD (09/13/2017 5:17 AM CDT) Pathologist [facility] [place] Magnesium 1.6 1.6 - 2.6 mg/dL 09/13/2017 5:41 AM [facility] Blood BLOOD SPECIMEN / Unknown Venipuncture / Unknown 09/13/2017 5:17 AM CDT 09/13/2017 5:23 AM CDT Veronica Costello MD LAB - CHEMISTRY [facility] [address] [phone] * (ABNORMAL) BASIC METABOLIC PANEL (CALCIUM TOTAL) (09/13/2017 5:17 AM CDT) Pathologist [facility] [place] BUN 26 7 - 26 mg/dL 09/13/2017 5:41 AM [facility] Creatinine 0.6 0.6 - 1.2 mg/dL 09/13/2017 5:41 AM [facility] Sodium 139 136 - 145 mmol/L 09/13/2017 5:41 AM [facility] Potassium 4.6(H) 3.5 - 4.5 mmol/L 09/13/2017 5:41 AM [facility] Chloride 96(L) 98 - 107 mmol/L 09/13/2017 5:41 AM [facility] CO2 31(H) 22 - 29 mmol/L 09/13/2017 5:41 AM [facility] Glucose 96 70 - 115 mg/dL 09/13/2017 5:41 AM [facility] Calcium 9.0 8.4 - 10.2 mg/dL 09/13/2017 5:41 AM [facility] Anion Gap 17 8 - 18 09/13/2017 5:41 AM [facility] BUN/Creatinine Ratio 43(H) 7 - 23 09/13/2017 5:41 AM [facility] Osmolality Calculated 293 270 - 300 mOsm/kg 09/13/2017 5:41 AM CDT [facility] eGFR >60 >60 mL/min/1.7 3 m2 09/13/2017 5:41 AM CDT [facility] Blood BLOOD SPECIMEN / Unknown Venipuncture / Unknown 09/13/2017 5:17 AM CDT 09/13/2017 5:23 AM CDT Veronica Costello MD LAB - CHEMISTRY ROYCE KLINE [address] [phone] * (ABNORMAL) GLUCOSE - POINT OF CARE (09/12/2017 11:49 PM CDT) Glucose WB/POC 124(H) 70 - 115 mg/dL 09/13/2017 12:02 AM CDT [facility] Blood BLOOD SPECIMEN / Unknown 09/12/2017 11:49 PM CDT 09/13/2017 12:02 AM CDT [facility] - 09/13/2017 12:02 AM CDT Corporate Tax Manager: TEETEE ??BETO Jason Nash MD LAB - POINT OF CARE ORDERABLES [address] [phone] * GLUCOSE - POINT OF CARE (09/12/2017 6:32 PM CDT) Glucose WB/POC 106 70 - 115 mg/dL 09/12/2017 6:58 PM CDT [facility] Blood BLOOD SPECIMEN / Unknown 09/12/2017 6:32 PM CDT 09/12/2017 6:58 PM CDT [facility] - 09/12/2017 6:58 PM CDT Corporate Tax Manager: REUBEN ?BERNARDINO Jason Nash MD LAB - POINT OF CARE ORDERABLES [address] [phone] * GLUCOSE - POINT OF CARE (09/12/2017 1:33 PM CDT) Pathologist [facility] [place] Glucose WB/POC 99 70 - 115 mg/dL 09/12/2017 1:55 PM [facility] Blood BLOOD SPECIMEN / Unknown 09/12/2017 1:33 PM CDT 09/12/2017 1:55 PM CDT Narrative [facility] - 09/12/2017 1:55 PM CDT Corporate Tax Manager: REUBEN FAGAN Jason Nash MD LAB - POINT OF CARE ORDERABLES [facility] [address] [place] [address] * (ABNORMAL) DIFFERENTIAL MANUAL (09/12/2017 5:14 AM CDT) [facility] WBC (corrected for NRBC) 9.5 10? 3 /uL 09/12/2017 8:05 AM [facility] Total Cell Count 100 09/13/19 18 8:05 AM [facility] Neutrophils Absolute Manual 7.70(H) 1.60 - 7.00 10? 3 /uL 09/12/2017 8:05 AM [facility] Comment:(BANDS+SEGS) x WBC = NEUT # (ANC) Lymphocyte Absolute Manual 0.57(L) 0.80 - 2.90 10? 3 /uL 09/12/2017 8:05 AM [facility] Monocytes Absolute Manual 0.86(H) 0.14 - 0.66 10? 3 /uL 09/12/2017 8:05 AM [facility] Eosinophils Absolute Manual 0.38(H) 0.00 - 0.22 10? 3 /uL 09/12/2017 8:05 AM [facility] Neutrophil % Manual 81(H) 30 - 60 % 09/12/2017 8:05 AM [facility] Lymphocyte % Manual 6(L) 20 - 45 % 09/12/2017 8:05 AM [facility] Monocytes % Manual 9 2 - 10 % 09/12/2017 8:05 AM [facility] Eosinophils % Manual 4 1 - 6 % 09/12/2017 8:05 AM [facility] Platelet Estimate Adequate Adequate 018 8:05 AM [facility] Anisocytosis 1+(A) None 09/12/2017 8:05 AM [facility] Polychromasia 1+(A) None 09/12/2017 8:05 AM [facility] Ovalocytes 1+(A) None 09/12/2017 8:05 AM [facility] Blood BLOOD SPECIMEN / Unknown Venipuncture / Unknown 09/12/2017 5:14 AM CDT 09/12/2017 5:23 AM CDT Veronica Costello MD LAB - HEMATOLOGY ORD ERABLES [facility] [address] [place] [address] * (ABNORMAL) CBC W AUTO DIFFERENTIAL (09/12/2017 5:14 AM CDT) WBC 9.5 3.5 - 10.5 10? 3 /uL 09/12/2017 6:51 AM [facility] RBC 2.99(L) 4.30 - 5.70 10? 6 /uL 09/12/2017 6:51 AM [facility] Hemoglobin 8.6(L) 13.5 - 17.5 g/dL 09/12/2017 6:51 AM [facility] Hematocrit 28.8(L) 39.0 - 50.0 % 09/12/2017 6:51 AM [facility] MCV 96.3 81.0 - 97.0 fL 09/12/2017 6:51 AM [facility] MCH 28.8 28.0 - 34.0 pg 09/12/2017 6:51 AM [facility] MCHC 29.9(L) 32.0 - 36.0 g/dL 09/12/2017 6:51 AM [facility] Platelet Count 185 150 - 400 10? 3 /uL 09/12/2017 6:51 AM [facility] RDW-SD 74.2(H) 36.0 - 50.0 fL 09/12/2017 6:51 AM [facility] RDW-CV 21.8(H) 11.2 - 14.8 % 09/12/2017 6:51 AM [facility] MPV 13.6(H) 9.3 - 12.8 fL 09/12/2017 6:51 AM [facility] nRBC Absolute 0.00 0 10? 3 /uL 09/12/2017 6:51 AM [facility] nRBC Auto 0.0 0 /100 WBC 09/12/2017 6:51 AM [facility] Neutrophils % 81.8(H) 35.0 - 70.0 % 09/12/2017 6:51 AM [facility] Lymphocytes % 5.8(L) 19.7 - 55.1 % 09/12/2017 6:51 AM [facility] Monocytes % 8.6 3.0 - 15.0 % 09/12/2017 6:51 AM [facility] Eosinophils % 3.4 0.0 - 6.0 % 09/12/2017 6:51 AM [facility] Basophil % 0.4 0.0 - 1.5 % 09/12/2017 6:51 AM [facility] Neutrophils Absolute 7.7(H) 1.6 - 7.0 10? 3 /uL 09/12/2017 6:51 AM [facility] Lymphocyte Absolute 0.6(L) 0.8 - 2.9 10? 3 /uL 09/12/2017 6:51 AM [facility] Monocytes Absolute 0.81(H) 0.14 - 0.66 10? 3 /uL 09/12/2017 6:51 AM [facility] Eosinophils Absolute 0.32(H) 0.00 - 0.22 10? 3 /uL 09/12/2017 6:51 AM [facility] Basophils Absolute 0.04 0.00 - 0.06 10? 3 /uL 09/12/2017 6:51 AM [facility] Immature Granulocytes % 1.1(H) 0.0 - 1.0 % 09/12/2017 6:51 AM [facility] Blood BLOOD SPECIMEN / Unknown Venipuncture / Unknown 09/12/2017 5:14 AM CDT 09/12/2017 5:23 AM CDT Veronica Costello MD LAB - HEMATOLOGY ORD ERABLES [address] [phone] * MAGNESIUM BLOOD (09/12/2017 5:14 AM CDT) Magnesium 1.6 1.6 - 2.6 mg/dL 09/12/2017 5:50 AM T [facility] Blood BLOOD SPECIMEN / Unknown Venipuncture / Unknown 09/12/2017 5:14 AM CDT 09/12/2017 5:23 AM CDT Veronica Costello MD LAB - CHEMISTRY ROYCE KLINE Performing Organization Address City/[facility]/ZIP Co de Phone Number [address] [phone] * (ABNORMAL) BASIC METABOLIC PANEL (CALCIUM TOTAL) (09/12/2017 5:14 AM CDT) BUN 35(H) 7 - 26 mg/dL 09/12/2017 5:50 AM [facility] Creatinine 0.7 0.6 - 1.2 mg/dL 09/12/2017 5:50 AM T [facility] Sodium 139 136 - 145 mmol/L 09/12/2017 5:50 AM [facility] Potassium 5.0(H) 3.5 - 4.5 mmol/L 09/12/2017 5:[address] [facility] [employer] Chloride 98 98 - 107 mmol/L 09/12/2017 5:50 AM T [facility] [employer] CO2 28 22 - 29 mmol/L 09/12/2017 5:[address] [facility] [facility] [facility] Glucose 96 70 - 115 mg/dL 09/12/2017 5:50 AM T [facility] Calcium 8.6 8.4 - 10.2 mg/dL 09/12/2017 5:[address] [facility] [employer] [facility] [employer] [facility] Anion Gap 18 8 - 18 09/12/2017 5:50 AM CDT [facility] BUN/Creatinine Ratio 50(H) 7 - 23 09/12/2017 5:50 AM CDT [facility] Osmolality Calculated 296 270 - 300 mOsm/kg 09/12/2017 5:50 AM CDT [facility] eGFR >60 >60 mL/min/1.7 3 m2 09/12/2017 5:50 AM CDT [facility] Blood BLOOD SPECIMEN / Unknown Venipuncture / Unknown 09/12/2017 5:14 AM CDT 09/12/2017 5:23 AM CDT Veronica Costello MD LAB - CHEMISTRY ORDE RAISA [address] [phone] * GLUCOSE - POINT OF CARE (09/12/2017 5:12 AM CDT) Glucose WB/POC 113 70 - 115 mg/dL 09/12/2017 5:44 AM CDT [facility] Blood BLOOD SPECIMEN / Unknown 09/12/2017 5:12 AM CDT 09/12/2017 5:44 AM CDT [facility] - 09/12/2017 5:44 AM CDT Corporate Tax Manager: CARLOS ?JANET Jason Nash MD LAB - POINT OF CARE ORDERABLES [address] [phone] * GLUCOSE - POINT OF CARE (09/12/2017 1:14 AM CDT) Glucose WB/POC 114 70 - 115 mg/dL 09/12/2017 1:36 AM CDT [facility] Blood BLOOD SPECIMEN / Unknown 09/12/2017 1:14 AM CDT 09/12/2017 1:36 AM CDT Narrative [facility] - 09/12/2017 1:36 AM CDT Corporate Tax Manager: CARLOS ?JANET Jason Nash MD LAB - POINT OF CARE ORDERABLES Performing Organization Address [facility]/ZIP Co de Phone Number [address] [phone] * (ABNORMAL) GLUCOSE - POINT OF CARE (09/11/2017 5:28 PM CDT) Glucose WB/POC 150(H) 70 - 115 mg/dL 09/11/2017 5:53 PM CDT [facility] Blood BLOOD SPECIMEN / Unknown 09/11/2017 5:28 PM CDT 09/11/2017 5:53 PM CDT Narrative [facility] - 09/11/2017 5:53 PM CDT Corporate Tax Manager: PRINCESS CAMPBELL Jason Nash MD LAB - POINT OF CARE ORDERABLES Performing Organization Address [facility] Co de Phone Number [address] [phone] * (ABNORMAL) GLUCOSE - POINT OF CARE (09/11/2017 11:49 AM CDT) Glucose WB/POC 116(H) 70 - 115 mg/dL 09/11/2017 12:03 PM CDT [facility] Blood BLOOD SPECIMEN / Unknown 09/11/2017 11:49 AM CDT 09/11/2017 12:03 PM CDT Narrative [facility] - 09/11/2017 12:03 PM CDT Corporate Tax Manager: PRINCESS CAMPBELL Jason Nash MD LAB - POINT OF CARE ORDERABLES Performing Organization Address City/[facility]/ZIP Co de Phone Number [address] [phone] * TYPE + SCREEN PANEL (09/11/2017 6:50 AM CDT) Antibody Screen NEG 8 7:42 AM CDT [facility] ABO Rh A POS 09/11/2017 7:42 AM CDT [facility] Blood Bank BLOOD SPECIMEN / Unknown Venipuncture / Unknown 09/11/2017 6:50 AM CDT 09/11/2017 6:59 AM CDT Veronica Costello MD LAB - BLOOD BANK ORD ERABLES [facility] [address] [place] [address], [facility] * XR CHEST 1VW (09/11/2017 6:33 AM [...] CARE (09/11/2017 5:54 AM CDT) Pathologist [facility] Glucose WB/POC 139(H) 70 - 115 mg/dL 09/11/2017 6:27 AM CDT [facility] Blood BLOOD SPECIMEN / Unknown 09/11/2017 5:54 AM CDT 09/11/2017 6:26 AM CDT Narrative [facility] - 09/11/2017 6:27 AM CDT Corporate Tax Manager: DEE ??HOA Jason Nash MD LAB - POINT OF CARE ORDERABLES [address] [phone] * (ABNORMAL) RBC MORPHOLOGY (09/11/2017 4:37 AM CDT) [facility] Platelet Estimate Adequate Adequate 018 8:36 AM CDT [facility] Anisocytosis 1+(A) None 09/11/2017 8:36 AM CDT [facility] Polychromasia Occasional( A) None 09/11/2017 8:36 AM CDT [facility] Target Cells Occasional( A) None 09/11/2017 8:36 AM [facility] Ovalocytes 1+(A) None 09/11/2017 8:36 AM [facility] Blood BLOOD SPECIMEN / Unknown Venipuncture / Unknown 09/11/2017 4:37 AM CDT 09/11/2017 4:55 AM CDT Veronica Costello MD LAB - HEMATOLOGY ORD ERABLES [facility] [address] [phone] * (ABNORMAL) CBC W AUTO DIFFERENTIAL (09/11/2017 4:37 AM CDT) WBC 11.0(H) 3.5 - 10.5 10? 3 /uL 09/11/2017 5:35 AM [facility] RBC 3.07(L) 4.30 - 5.70 10? 6 /uL 09/11/2017 5:35 AM [facility] Hemoglobin 8.7(L) 13.5 - 17.5 g/dL 09/11/2017 5:35 AM [facility] Hematocrit 29.4(L) 39.0 - 50.0 % 09/11/2017 5:35 AM [facility] MCV 95.8 81.0 - 97.0 fL 09/11/2017 5:35 AM [facility] MCH 28.3 28.0 - 34.0 pg 09/11/2017 5:35 AM [facility] MCHC 29.6(L) 32.0 - 36.0 g/dL 09/11/2017 5:35 AM [facility] Platelet Count 234 150 - 400 10? 3 /uL 09/11/2017 5:35 AM [facility] RDW-SD 71.3(H) 36.0 - 50.0 fL 09/11/2017 5:35 AM [facility] RDW-CV 21.4(H) 11.2 - 14.8 % 09/11/2017 5:35 AM [facility] MPV 12.9(H) 9.3 - 12.8 fL 09/11/2017 5:35 AM [facility] nRBC Absolute 0.05(H) 0 10? 3 /uL 09/11/2017 5:35 AM [facility] nRBC Auto 0.4(H) 0 /100 WBC 09/11/2017 5:35 AM [facility] Comment:Confirmed by repeat analysis. Neutrophils % 82.9(H) 35.0 - 70.0 % 09/11/2017 5:35 AM [facility] Lymphocytes % 6.3(L) 19.7 - 55.1 % 09/11/2017 5:35 AM [facility] Monocytes % 7.9 3.0 - 15.0 % 09/11/2017 5:35 AM [facility] Eosinophils % 2.6 0.0 - 6.0 % 09/11/2017 5:35 AM [facility] Basophil % 0.3 0.0 - 1.5 % 09/11/2017 5:35 AM [facility] Neutrophils Absolute 9.1(H) 1.6 - 7.0 10? 3 /uL 09/11/2017 5:35 AM [facility] Lymphocyte Absolute 0.7(L) 0.8 - 2.9 10? 3 /uL 09/11/2017 5:35 AM [facility] Monocytes Absolute 0.87(H) 0.14 - 0.66 10? 3 /uL 09/11/2017 5:35 AM [facility] Eosinophils Absolute 0.29(H) 0.00 - 0.22 10? 3 /uL 09/11/2017 5:35 AM [facility] Basophils Absolute 0.03 0.00 - 0.06 10? 3 /uL 09/11/2017 5:35 AM [facility] Reflex Status Morphology review to follow. 09/11/2017 5:35 AM [facility] Immature Granulocytes % 1.6(H) 0.0 - 1.0 % 09/11/2017 5:35 AM [facility] Blood BLOOD SPECIMEN / Unknown Venipuncture / Unknown 09/11/2017 4:37 AM CDT 09/11/2017 4:55 AM CDT Veronica Costello MD LAB - HEMATOLOGY ORD ERABLES [address] [phone] * MAGNESIUM BLOOD (09/11/2017 4:37 AM CDT) Magnesium 1.7 1.6 - 2.6 mg/dL 09/11/2017 5:25 AM T [facility] Blood BLOOD SPECIMEN / Unknown Venipuncture / Unknown 09/11/2017 4:37 AM CDT 09/11/2017 4:55 AM CDT Veronica Costello MD LAB - CHEMISTRY ROYCE KLINE Performing Organization Address [facility]/ZIP Co de Phone Number [address] [phone] * (ABNORMAL) BASIC METABOLIC PANEL (CALCIUM TOTAL) (09/11/2017 4:37 AM CDT) BUN 39(H) 7 - 26 mg/dL 09/11/2017 5:25 AM [facility] Creatinine 0.8 0.6 - 1.2 mg/dL 09/11/2017 5:25 AM [facility] Sodium 142 136 - 145 mmol/L 09/11/2017 5:25 AM [facility] Potassium 5.5(H) 3.5 - 4.5 mmol/L 09/11/2017 5:25 AM [facility] Chloride 101 98 - 107 mmol/L 09/11/2017 5:[address] [facility] [employer] [facility] [facility] CO2 25 22 - 29 mmol/L 09/11/2017 5:25 AM [facility] Glucose 123(H) 70 - 115 mg/dL 09/11/2017 5:25 AM [facility] Calcium 8.9 8.4 - 10.2 mg/dL 09/11/2017 5:25 AM [facility] Anion Gap 22(H) 8 - 18 09/11/2017 5:25 AM [facility] BUN/Creatinine Ratio 49(H) 7 - 23 09/11/2017 5:25 AM CDT [facility] Osmolality Calculated 305(H) 270 - 300 mOsm/kg 09/11/2017 5:25 AM T [facility] eGFR >60 >60 mL/min/1.7 3 m2 09/11/2017 5:25 AM T [facility] Blood BLOOD SPECIMEN / Unknown Venipuncture / Unknown 09/11/2017 4:37 AM CDT 09/11/2017 4:55 AM CDT Veronica Costello MD LAB - CHEMISTRY ROYCE KLINE [facility] [address] [phone] * (ABNORMAL) B-TYPE NATRIURETIC PEPTIDE (09/11/2017 4:37 AM CDT) BNP 806(H) See Comment pg/mL 09/11/2017 5:31 AM CDT [facility] Comment: A decision threshold of [...] - CHEMISTRY ORDE RAISA Performing Organization Address [facility] de Phone Number [address] [phone] * PT-INR [facility] (09/11/2017 4:37 AM CDT) PT 14.1 12.1 - 14.8 Seconds 09/11/2017 5:15 AM CDT [facility] INR 1.1 See Comment 09/11/2017 5:15 AM CDT [facility] Comment: Suggested therapeutic range for low-intensity coumadin [...] DERABLES Performing Organization Address [facility] de Phone Number [address] [phone] * (ABNORMAL) GLUCOSE - POINT OF CARE (09/11/2017 12:01 AM CDT) Glucose WB/POC 116(H) 70 - 115 mg/dL 09/11/2017 12:21 AM CDT [facility] Blood BLOOD SPECIMEN / Unknown 09/11/2017 12:01 AM CDT 09/11/2017 12:21 AM CDT [facility] - 09/11/2017 12:21 AM CDT Corporate Tax Manager: DEE Brody?HOA Jason Nash MD LAB - POINT OF CARE ORDERABLES [address] [phone] * (ABNORMAL) GLUCOSE - POINT OF CARE (09/10/2017 6:16 PM CDT) Glucose WB/POC 157(H) 70 - 115 mg/dL 09/10/2017 6:47 PM CDT [facility] Blood BLOOD SPECIMEN / Unknown 09/10/2017 6:16 PM CDT 09/10/2017 6:46 PM CDT [facility] - 09/10/2017 6:47 PM CDT Corporate Tax Manager: PRINCESS ??BINTA Jason Nash MD LAB - POINT OF CARE ORDERABLES [address] [phone] * (ABNORMAL) GLUCOSE - POINT OF CARE (09/10/2017 12:57 PM CDT) Glucose WB/POC 141(H) 70 - 115 mg/dL 09/10/2017 1:24 PM CDT [facility] Blood BLOOD SPECIMEN / Unknown 09/10/2017 12:57 PM CDT 09/10/2017 1:24 PM CDT [facility] - 09/10/2017 1:24 PM CDT Corporate Tax Manager: PRINCESS ??BINTA Jason Nash MD LAB - POINT OF CARE ORDERABLES [facility] [address] [place] [address] * (ABNORMAL) BLOOD GASES ART (09/10/2017 5:57 AM CDT) pH Arterial 7.45 7.35 - 7.45 09/10/2017 6:08 AM [facility] pCO2 Arterial 44 35 - 45 mmHg 09/10/2017 6:08 AM [facility] pO2 Arterial 80 71 - 95 mmHg 09/10/2017 6:08 AM [facility] HCO3 Arterial 30.0(H) 22.0 - 26.0 mmol/L 09/10/2017 6:08 AM [facility] TCO2 Arterial 31.3(H) 25.0 - 29.0 mmol/L 09/10/2017 6:08 AM [facility] Base Excess Arterial 5.4(H) -2.0 - 2.0 mmol/L 09/10/2017 6:08 AM [facility] Hemoglobin Arterial 8.2(L) 13.5 - 17.5 g/dL 09/10/2017 6:08 AM [facility] Oxyhemoglobin Arterial 94.5(L) 95.0 - 100.0 % 09/10/2017 6:08 AM [facility] Carboxyhemoglobin 0.3 0.0 - 3.0 % 09/10/2017 6:08 AM [facility] Methemoglobin 0.7 0.0 - 2.0 % 09/10/2017 6:08 AM [facility] FI O2 Arterial 40.0 % 09/10/2017 6:08 AM [facility] Blood, arterial ARTERIAL BLOOD SPECIMEN / Unknown Arterial Puncture / Unknown 09/10/2017 5:57 AM CDT 09/10/2017 6:05 AM [facility] Delphine Waddell HEEL W[employer]ER STRINGING MACHINE OPERATOR-PLATER SUPERVISOR LAB - BLOOD GASE S ORDERABLES [address] [phone] * (ABNORMAL) GLUCOSE - POINT OF CARE (09/10/2017 5:50 AM CDT) Glucose WB/POC 146(H) 70 - 115 mg/dL 09/10/2017 6:12 AM CDT [facility] Blood BLOOD SPECIMEN / Unknown 09/10/2017 5:50 AM CDT 09/10/2017 6:11 AM CDT Narrative [facility] - 09/10/2017 6:12 AM CDT Corporate Tax Manager: DEE ??HOA Jason Nash MD LAB - POINT OF CARE ORDERABLES Performing Organization Address City/[facility]/[place] [address], [facility] [phone] * PTT [facility] (09/10/2017 5:49 AM CDT) APTT 29.7 23.0 - 38.4 Seconds 09/10/2017 5:58 AM CDT [facility] Comment: Suggested therapeutic range for full dose I.V. heparin therapy for venous thromboembolism is 66.0-91.0 seconds. Blood BLOOD SPECIMEN / Unknown Lab Venipuncture / Unknown 09/10/2017 5:49 AM CDT 09/10/2017 5:50 AM CDT Yogesh Duncan MD LAB - [place] [address], [facility] [phone] * (ABNORMAL) RBC MORPHOLOGY (09/10/2017 5:04 AM CDT) Platelet Estimate Adequate Adequate 09/10/2017 6:51 AM CDT [facility] Anisocytosis 1+(A) None 09/10/2017 6:51 AM CDT [facility] Stomatocytes 2+(A) None 09/10/2017 6:51 AM CDT [facility] Blood BLOOD SPECIMEN / Unknown Venipuncture / Unknown 09/10/2017 5:04 AM CDT 09/10/2017 5:08 AM CDT Jason Nash MD LAB - HEMATOLOGY ORD SP [facility] [address] [place] [address] * (ABNORMAL) BASIC METABOLIC PANEL (CALCIUM TOTAL) (09/10/2017 5:04 AM CDT) BUN 36(H) 7 - 26 mg/dL 09/10/2017 5:35 AM [facility] Creatinine 0.7 0.6 - 1.2 mg/dL 09/10/2017 5:35 AM [facility] Sodium 141 136 - 145 mmol/L 09/10/2017 5:35 AM [facility] Potassium 4.8(H) 3.5 - 4.5 mmol/L 09/10/2017 5:35 AM [facility] Chloride 103 98 - 107 mmol/L 09/10/2017 5:35 AM [facility] CO2 28 22 - 29 mmol/L 09/10/2017 5:35 AM [facility] Glucose 129(H) 70 - 115 mg/dL 09/10/2017 5:35 AM [facility] Calcium 8.6 8.4 - 10.2 mg/dL 09/10/2017 5:35 AM [facility] Anion Gap 15 8 - 18 09/10/2017 5:35 AM [facility] BUN/Creatinine Ratio >50(H) 7 - 23 09/10/2017 5:35 AM [facility] Osmolality Calculated 302(H) 270 - 300 mOsm/kg 09/10/2017 5:35 AM [facility] Blood BLOOD SPECIMEN / Unknown Venipuncture / Unknown 09/10/2017 5:04 AM CDT 09/10/2017 5:08 AM CDT Jason Nash MD LAB - CHEMISTRY ROYCE KLINE [facility] [address] [place] [address] * (ABNORMAL) CBC W AUTO DIFFERENTIAL (09/10/2017 5:04 AM [facility]) WBC 11.0(H) 3.5 - 10.5 10? 3 /uL 09/10/2017 5:19 AM [facility] Comment:The WBC count is cor rected by the instrument for nRBC's RBC 2.86(L) 4.30 - 5.70 10? 6 /uL 09/10/2017 5:19 AM [facility] Hemoglobin 8.0(L) 13.5 - 17.5 g/dL 09/10/2017 5:19 AM [facility] Hematocrit 27.1(L) 39.0 - 50.0 % 09/10/2017 5:19 AM [facility] MCV 94.8 81.0 - 97.0 fL 09/10/2017 5:19 AM [facility] MCH 28.0 28.0 - 34.0 pg 09/10/2017 5:19 AM [facility] MCHC 29.5(L) 32.0 - 36.0 g/dL 09/10/2017 5:19 AM [facility] Platelet Count 249 150 - 400 10? 3 /uL 09/10/2017 5:19 AM [facility] RDW-SD 69.0(H) 36.0 - 50.0 fL 09/10/2017 5:19 AM [facility] RDW-CV 21.1(H) 11.2 - 14.8 % 09/10/2017 5:19 AM [facility] MPV 12.4 9.3 - 12.8 fL 09/10/2017 5:19 AM [facility] nRBC Absolute 0.14(H) 0 10? 3 /uL 09/10/2017 5:19 AM [facility] nRBC Auto 1.2(H) 0 /100 WBC 09/10/2017 5:19 AM [facility] Neutrophils % 83.6(H) 35.0 - 70.0 % 09/10/2017 5:19 AM [facility] Lymphocytes % 4.9(L) 19.7 - 55.1 % 09/10/2017 5:19 AM [facility] Monocytes % 9.6 3.0 - 15.0 % 09/10/2017 5:19 AM [facility] Eosinophils % 1.4 0.0 - 6.0 % 09/10/2017 5:19 AM [facility] Basophil % 0.5 0.0 - 1.5 % 09/10/2017 5:19 AM [facility] Neutrophils Absolute 9.2(H) 1.6 - 7.0 10? 3 /uL 09/10/2017 5:19 AM [facility] Lymphocyte Absolute 0.5(L) 0.8 - 2.9 10? 3 /uL 09/10/2017 5:19 AM [facility] Monocytes Absolute 1.05(H) 0.14 - 0.66 10? 3 /uL 09/10/2017 5:19 AM [facility] Eosinophils Absolute 0.15 0.00 - 0.22 10? 3 /uL 09/10/2017 5:19 AM [facility] Basophils Absolute 0.05 0.00 - 0.06 10? 3 /uL 09/10/2017 5:19 AM [facility] Immature Granulocytes % 1.5(H) 0.0 - 1.0 % 09/10/2017 5:19 AM [facility] Blood BLOOD SPECIMEN / Unknown Venipuncture / Unknown 09/10/2017 5:04 AM CDT 09/10/2017 5:08 AM CDT Jason Nash MD LAB - HEMATOLOGY [place] Performing Organization Address City/State/[facility] Co de Phone Number [address] [phone] * (ABNORMAL) GLUCOSE ACCUCHECK (09/09/2017 11:31 PM CDT) Glucose, Fingerstick 127(H) 70-115mg/d L mg/dL [facility] ([facility]) Comment: Insulin Protocol Corporate Tax Manager: DEE ??HOA 09/09/2017 11:3 1 PM CDT Jason Nash MD LAB - CHEMISTRY ROYCE KLINE Performing Organization Address City/[facility] Co de Phone Number [facility] * GLUCOSE ACCUCHECK (09/09/2017 5:10 PM CDT) Glucose, Fingerstick 99 70-115mg/d L mg/dL [facility] Comment:Corporate Tax Manager: AYANNAKAYLIE HOU AUNDREA 09/09/2017 5:10 PM CDT Jason Nash MD LAB - CHEMISTRY ROYCE KLINE Performing Organization Address [facility] Co de Phone Number [facility] ([facility]) * CULTURE AEROBIC (09/09/2017 3:41 PM CDT) Culture Aerobic Light Growth S [facility] Comment:Normal oropharyngeal robert Gram Stain light White Blood Cells [facility] Gram Stain No Organism Seen [facility] Bronchial Washings SPECIMEN FROM LUNG OBTAINED BY BRONCHIAL WASHING PROCEDURE / Unknown 09/09/2017 3:41 PM CDT 09/09/2017 3:47 PM CDT Narrative [facility] - 09/11/2017 6:41 AM CDT Specimen Type->Bronchial Washings Resulting Lab: ?? [facility] [address] [place] [address] PH: [phone] Jason Nash MD LAB - MICROBIOLOGY O RDERABLES Performing Organization Address [facility] Co de Phone Number [facility] [address] [place] [address] * XR CHEST 1VW PORTABLE (09/09/2017 3:31 PM CDT) Anatomical Region Laterality Modality Chest Other Impressions 09/09/2017 4:31 PM CDT IMPRESSION: An endotracheal tube terminates at the mid thoracic trachea. A feeding tube extends to the stomach and beyond the gewap-ps-unxs. A left pleural pigtail catheter is partially imaged. Small right pleural effusion is unchanged. Left lower lobe opacity has decreased representing atelectasis versus airspace disease with possible persistent pleural effusion. Interstitial opacities are unchanged representing pulmonary edema and/or pneumonia. No pneumothorax is seen. The cardiac silhouette is partially obscured. The aorta is atherosclerotic. Report dictated by Rohan Hopkins M.D. (vice president network). Dr. VIBHA Stringer M.D. have personally reviewed [...] extends to the stomach and beyond the xrgdk-yz-mbpg. A left pleuralpigtail catheter is partially imaged. Small right pleural effusion is unchanged. Left lower lobe opacity hasdecreased representing atelectasis versus airspace disease with possiblepersistent pleural effusion. Interstitial opacities are unchangedrepresenting pulmonary edema and/or pneumonia. No pneumothorax is seen. The cardiac silhouette is partiallyobscured. The aorta is atherosclerotic. Report dictated by Rohan Hopkins M.D. (vice president network). Dr. VIBHA Stringer M.D. have personally reviewed and interpreted thisexamination/study. This report was electronically signed by VIBHA PHELPS M.D. on 09/09/20174:31 PM . Jason Nash MD DIAGNOSTIC IMAGING O RDERABLES * GLUCOSE ACCUCHECK (09/09/2017 11:57 AM CDT) Glucose, Fingerstick 79 70-115mg/d L mg/dL [facility] (BEAKER) Comment:Corporate Tax Manager: CHELA PATTERSON 09/09/2017 11:5 7 AM CDT Jason Nash MD LAB - CHEMISTRY ROYCE KLINE [facility] [place]) * (ABNORMAL) BASIC METABOLIC PANEL (CALCIUM TOTAL) (09/09/2017 10:31 AM CDT) BUN 36(H) 7 - 26 mg/dL [facility] Creatinine 0.8 0.6 - 1.2 mg/dL [facility] Sodium 142 136 - 145 mmol/L [facility] Potassium 4.7(H) 3.5 - 4.5 mmol/L [facility] Chloride 105 98 - 107 mmol/L [facility] CO2 26 22 - 29 mmol/L [facility] Glucose 80 70 - 115 mg/dL [facility] Calcium 8.5 8.4 - 10.2 mg/dL [facility] Anion Gap 16 8 - 18 [facility] BUN/Creatinine Ratio 45(H) 7 - 23 [facility] Osmolality Calculated 301(H) 270 - 300 mOsm/kg [facility] eGFR >60 >60 mL/min/1.7 3 m2 [facility] Blood specimen (specimen) BLOOD SPECIMEN / Unknown 09/09/2017 10:31 AM CDT 09/09/2017 10:40 AM CDT Jason Nash MD LAB - CHEMISTRY ROYCE KLINE [facility] Organization Address City/State/ZIP Co de Phone Number [place] [id number] [address] [phone] * (ABNORMAL) BLOOD GASES ART (09/09/2017 8:41 AM CDT) pH Arterial 7.51(H) 7.35 - 7.45 [facility] pCO2 Arterial 38 35 - 45 mmHg [facility] pO2 Arterial 274(H) 71 - 95 mmHg [facility] HCO3 Arterial 29.2(H) 22.0 - 26.0 mmol/L [facility] TCO2 Arterial 30.4(H) 25.0 - 29.0 mmol/L [facility] Base Excess Arterial 5.7(H) -2.0 - 2.0 mmol/L [facility] Hemoglobin Arterial 7.6(L) 13.5 - 17.5 g/dL [facility] Oxyhemoglobin Arterial 98.7 95.0 - 100.0 % [facility] Carboxyhemoglobin 0.3 0.0 - 3.0 % [facility] Methemoglobin 0.5 0.0 - 2.0 % [facility] FI O2 Arterial 100.0 % [facility] Blood specimen (specimen) BLOOD SPECIMEN / Unknown 09/09/2017 8:41 AM CDT 09/09/2017 8:45 AM CDT Narrative [facility] - 09/09/2017 8:47 AM CDT FIO2->100 Jason Nash MD LAB - BLOOD GASES OR DERABLES [address] [phone] * (ABNORMAL) GLUCOSE ACCUCHECK (09/09/2017 6:15 AM CDT) Glucose, Fingerstick 133(H) 70-115mg/d L mg/dL [facility] RAL (BEAKER) Comment:Corporate Tax Manager: CARLOS CARTAGENA 09/09/2017 6:15 AM CDT Jason Nash MD LAB - CHEMISTRY [facility] ([place] * XR CHEST 1VW PORTABLE (09/09/2017 4:23 AM CDT) Anatomical Region Laterality Modality Chest Other Impressions 09/09/2017 2:02 PM CDT IMPRESSION: There is interval intubation with tip of endotracheal tube terminating at the mid thoracic trachea. A feeding tube extends to the stomach and beyond the lsnnl-zi-meqs. A left pleural pigtail catheter is unchanged in position. Small right pleural effusion is unchanged. There is left lower lobe atelectasis versus airspace disease with possible persistent pleural effusion. Interstitial opacities have decreased representing pulmonary edema and/or pneumonia. No pneumothorax is seen. The cardiac silhouette is partially obscured. The aorta is atherosclerotic. Report dictated by Rohan Hopkins M.D. (vice president network). Dr. VIBHA Stringer M.D. have personally reviewed [...] tube extends to the stomach and beyondthe odkjw-ow-fwcd. A left pleural pigtail catheter is unchanged inposition. Small right pleural effusion is unchanged. There is left lower lobeatelectasis versus airspace disease with possible persistent pleuraleffusion. Interstitial opacities have decreased representing pulmonaryedema and/or pneumonia. No pneumothorax is seen. The cardiac silhouette is partially obscured. The aorta isatherosclerotic. Report dictated by Rohan Hopkins M.D. (vice president network). IDr. VIBHA M.D. have personally reviewed and interpreted thisexamination/study. This report was electronically signed by VIBHA PHELPS M.D. on 09/09/20172:02 PM . Delphine Waddell HEEL WASHER STRINGING MACHINE OPERATOR-PLATER SUPERVISOR DIAGNOSTIC IMAGI NG ORDERABLES * (ABNORMAL) DIFFERENTIAL MANUAL (09/09/2017 4:22 AM CDT) WBC (corrected for NRBC) 18.9 10? 3 /uL [facility] Total Cell Count 100 [facility] Neutrophils Absolute Manual 14.55(H) 1.60 - 7.00 10? 3 /uL [facility] Comment:(BANDS+SEGS) x WBC = NEUT # (ANC) Lymphocyte Absolute Manual 1.70 0.80 - 2.90 10? 3 /uL [facility] [facility] Monocytes Absolute Manual 2.46(H) 0.14 - 0.66 10? 3 /uL [facility] [facility] Neutrophil % Manual 77(H) 30 - 60 % [facility] Lymphocyte % Manual 9(L) 20 - 45 % [facility] Monocytes % Manual 13(H) 2 - 10 % [facility] Metamyelocyte % Manual 1(H) 0 % [facility] Platelet Estimate Increased (A) Adequate [facility] Anisocytosis Occasiona l(A) None [facility] Blood specimen (specimen) BLOOD SPECIMEN / Unknown 09/09/2017 4:22 AM CDT 09/09/2017 4:27 AM CDT Jason Nash MD LAB - HEMATOLOGY ORD ERABLES [facility] [address] [phone] * (ABNORMAL) CBC W AUTO DIFFERENTIAL (09/09/2017 4:22 AM CDT) WBC 18.9(H) 3.5 - 10.5 10? 3 /uL [facility] Comment: The WBC count is corrected by the instrument for nRBC's All CBC parameters have been checked. RBC 3.27(L) 4.30 - 5.70 10? 6 /uL [facility] Hemoglobin 9.1(L) 13.5 - 17.5 g/dL [facility] Hematocrit 31.2(L) 39.0 - 50.0 % [facility] MCV 95.4 81.0 - 97.0 fL [facility] MCH 27.8(L) 28.0 - 34.0 pg [facility] MCHC 29.2(L) 32.0 - 36.0 g/dL [facility] Platelet Count 426(H) 150 - 400 10? 3 /uL [facility] RDW-SD 66.4(H) 36.0 - 50.0 fL [facility] RDW-CV 20.4(H) 11.2 - 14.8 % [facility] MPV 12.8 9.3 - 12.8 fL [facility] nRBC Absolute 0.45(H) 0 10? 3 /uL [facility] nRBC Auto 2.4(H) 0 /100 WBC [facility] Blood specimen (specimen) BLOOD SPECIMEN / Unknown 09/09/2017 4:22 AM CDT 09/09/2017 4:27 AM CDT Jason Nash MD LAB - HEMATOLOGY ORD ERABLES Performing Organization Address [facility]/ZIP Co de Phone Number [address] [phone] * (ABNORMAL) PT-INR [facility] (09/09/2017 4:22 AM CDT) PT 15.8(H) 12.1 - 14.8 Seconds [facility] INR 1.3 See Comment [facility] Comment: Suggested therapeutic range for low-intensity coumadin therapy for venous thromboembolism prophylaxis is an INR of 2.0-3.0. ??For high risk patients (Mitral Valve Prosthesis, Atrial Fibrillation, history of TIA/stroke), suggested prophylactic therapeutic range is an INR of 2.5-3.5. Blood specimen (specimen) BLOOD SPECIMEN / Unknown 09/09/2017 4:22 AM CDT 09/09/2017 4:27 AM CDT Narrative [facility] - 09/09/2017 4:43 AM CDT Is patient on Heparin, Argatroban or Dabigatran?->N Jason Nash MD LAB - COAGULATION OR DERABLES Performing Organization Address [facility] Co de Phone Number [address] [phone] * (ABNORMAL) BLOOD GASES THOUSANDSTICKS (09/09/2017 4:22 AM CDT) pH Arterial 7.41 7.35 - 7.45 [facility] pCO2 Arterial 45 35 - 45 mmHg [facility] pO2 Arterial 65(L) 71 - 95 mmHg [facility] HCO3 Arterial 27.4(H) 22.0 - 26.0 mmol/L [facility] TCO2 Arterial 28.8 25.0 - 29.0 mmol/L [facility] Base Excess Arterial 2.4(H) -2.0 - 2.0 mmol/L [facility] Hemoglobin Arterial 8.6(L) 13.5 - 17.5 g/dL [facility] Oxyhemoglobin Arterial 90.7(L) 95.0 - 100.0 % [facility] Carboxyhemoglobin 0.3 0.0 - 3.0 % [facility] Methemoglobin 0.3 0.0 - 2.0 % [facility] FI O2 Arterial 100.0 % [facility] Blood specimen (specimen) BLOOD SPECIMEN / Unknown 09/09/2017 4:22 AM CDT 09/09/2017 4:45 AM CDT Delphine Waddell APRNMIRANDA LAB - BLOOD GASE S ORDERABLES [address] [phone] * (ABNORMAL) BASIC METABOLIC PANEL (CALCIUM TOTAL) (09/09/2017 4:22 AM CDT) BUN 35(H) 7 - 26 mg/dL [facility] Creatinine 0.8 0.6 - 1.2 mg/dL [facility] Sodium 140 136 - 145 mmol/L [facility] Potassium 5.7(H) 3.5 - 4.5 mmol/L [facility] Chloride 104 98 - 107 mmol/L [facility] CO2 24 22 - 29 mmol/L [facility] Glucose 238(H) 70 - 115 mg/dL [facility] Calcium 8.9 8.4 - 10.2 mg/dL [facility] Anion Gap 18 8 - 18 [facility] BUN/Creatinine Ratio 44(H) 7 - 23 [facility] Osmolality Calculated 306(H) 270 - 300 mOsm/kg [facility] eGFR >60 >60 mL/min/1.7 3 m2 [facility] Blood specimen (specimen) BLOOD SPECIMEN / Unknown 09/09/2017 4:22 AM CDT 09/09/2017 4:27 AM CDT Jason Nash MD LAB - CHEMISTRY ROYCE KLINE [address] [phone] * CBC W AUTO DIFFERENTIAL (09/09/2017 4:22 AM CDT) Blood specimen (specimen) BLOOD SPECIMEN / Unknown 09/09/2017 4:22 AM CDT Narrative [facility] - 09/09/2017 5:12 AM CDT The following orders were created for panel order CBC w Differential. Procedure ? Abnormality ? Status ? --------- ? ------ ? CBC WITH DIFFERENTIAL[[id number]] ? Abnormal ?Final result ? MANUAL DIFFERENTIAL[[id number]] ? Abnormal ?Final result ? Please view results for these tests on the individual orders. Jason Nash MD LAB - HEMATOLOGY ORD [facility] Organization Address City/State/[facility] Co de Phone Number [facility] [address] * XR CHEST 1VW PORTABLE (09/09/2017 3:48 AM CDT) Anatomical Region Laterality Modality Chest Other Impressions 09/09/2017 1:59 PM CDT IMPRESSION: A feeding tube extends to the stomach and beyond the yulve-tm-kjbm. A left pleural pigtail catheter is unchanged [...] atherosclerotic. Report dictated by Rohan Hopkins MD (vice president network). Dr. VIBHA Stringer M.D. have personally reviewed [...] extends to the stomach and beyond the efwrw-jg-xplv. A leftpleural pigtail catheter is unchanged in [...] atherosclerotic. Report dictated by Rohan Hopkins MD (vice president network). Dr. VIBHA Stringer M.D. have personally reviewed and interpreted thisexamination/study. This report was electronically signed by VIBHA PHELPS M.D. on 09/09/20171:59 PM . Jason Nash MD DIAGNOSTIC IMAGING O RDERABLES * (ABNORMAL) GLUCOSE ACCUCHECK (09/09/2017 12:56 AM CDT) Glucose, Fingerstick 136(H) 70-115mg/d L mg/dL [facility]ALS (BEAKER) Comment:Corporate Tax Manager: CARLOS CARTAGENA 09/09/2017 12:5 6 AM CDT Jason Nash MD LAB - CHEMISTRY ROYCE KLINE Performing Organization Address [facility]/ZIP Co de Phone Number [facility] [place] * (ABNORMAL) GLUCOSE ACCUCHECK (09/08/2017 6:08 PM CDT) Glucose, Fingerstick 130(H) 70-115mg/d L mg/dL [facility] ([facility] [place]) Comment:Corporate Tax Manager: MARCELL ST CROOKS 09/08/2017 6:08 PM CDT Jason Nash MD LAB - CHEMISTRY ROYCE KLINE Performing Organization Address [facility] Co de Phone Number [facility] ([facility] [place] * (ABNORMAL) GLUCOSE ACCUCHECK (09/08/2017 12:39 PM CDT) Glucose, Fingerstick 120(H) 70-115mg/d L mg/dL [facility] ([facility]) Comment:Corporate Tax Manager: STUARTJACQUI PENNINGTON 09/08/2017 12:3 9 PM CDT Jason Nash MD LAB - CHEMISTRY ROYCE KLINE Performing Organization Address [facility] Co de Phone Number [facility] ([facility] [place]) * LD BODY FLUID ([facility] ONLY) (09/08/2017 12:35 PM CDT) LD Fluid 172 Not Established For Fluids Units/L [facility] Comment:The reference range and other method performance specifications have not been established for this fluid. The test result must be integrated into the clinical context for interpretation. Pleural fluid specimen (specimen) PLEURAL FLUID / Unknown 09/08/2017 12:35 PM CDT 09/08/2017 12:48 PM CDT Jason Nash MD LAB - BODY FLUID [place]Y [place] Performing Organization Address City/[facility]/ZIP Co de Phone Number [place] [phone] * GLUCOSE BODY FLUID ([facility] ONLY) (09/08/2017 12:35 PM CDT) Glucose Fluid 145 Not Established For Fluids mg/dL [facility] Comment:The reference range and other method performance specifications have not been established for this fluid. The test result must be integrated into the clinical context for interpretation. Pleural fluid specimen (specimen) PLEURAL FLUID / Unknown 09/08/2017 12:35 PM CDT 09/08/2017 12:48 PM CDT Jason Nash MD LAB - BODY FLUID ORD ERABLES Performing Organization Address City/[facility]/ZIP Co de Phone Number [address] [phone] * PROTEIN FLUID (09/08/2017 12:35 PM CDT) Protein Fluid 1.5 Not Established For Fluids g/dL [facility] Comment:The reference range and other method performance specifications have not been established for this fluid. The test result must be integrated into the clinical context for interpretation. Pleural fluid specimen (specimen) PLEURAL FLUID / Unknown 09/08/2017 12:35 PM CDT 09/08/2017 12:48 PM CDT Jason Nash MD LAB - BODY FLUID ORD ERABLES [address] [phone] * (ABNORMAL) CELL COUNT FLUID (09/08/2017 12:35 PM CDT) Color Fluid [place](A) Colorless, Straw [facility] Clarity Fluid Slighty Cloudy(A) Clear [facility] Volume Fluid 1.0 mL [facility] WBC Fluid 161 Reference Range Not Established /uL [facility] RBC Fluid 11,000 Reference Range Not Established /uL [facility] Differential Manual Differential to follow. [facility] Pleural fluid specimen (specimen) PLEURAL FLUID / Unknown 09/08/2017 12:35 PM CDT 09/08/2017 12:48 PM CDT Narrative [facility] - 09/08/2017 1:12 PM CDT No established reference ranges for WBC and RBC body fluid count. Jason Nash MD LAB - BODY FLUID ORD ERABLES Performing Organization Address [facility] Co de Phone Number [address] [phone] * DIFFERENTIAL MANUAL FLUID (09/08/2017 12:35 PM CDT) Segs % Fluid 60 % [facility] Lymphocytes % Fluid 37 % [facility] Monocytes % Fluid 3 % [facility] Pleural fluid specimen (specimen) PLEURAL FLUID / Unknown 09/08/2017 12:35 PM CDT 09/08/2017 12:48 PM CDT Narrative [facility] - 09/08/2017 2:08 PM CDT No reference ranges established for body fluid differential. Jason Nash MD LAB - BODY FLUID ORD ERABLES Performing Organization Address [facility] [place] [address], [facility] [phone] * CELL COUNT W DIFFERENTIAL FLUID (09/08/2017 12:35 PM CDT) Pleural fluid specimen (specimen) PLEURAL FLUID / Unknown 09/08/2017 12:35 PM CDT [facility] - 09/08/2017 2:08 PM CDT The following orders were created for panel order Body fluid cell count with diff. Procedure ? Abnormality ? Status ? --------- ? ------ ? Body fluid cell count wit...[[id number]] ??Abnormal ?Final result ? MANUAL DIFFERENTIAL FLUID[[id number]] ? Final result ? Please view results for these tests on the individual orders. Jason Nash MD LAB - BODY FLUID ORD ERABLES Performing Organization Address [facility] de Phone Number [facility] [address] * PH FLUID (09/08/2017 12:33 PM CDT) pH Fluid 7.610 Not Established For Fluids [facility] Comment:The reference range and other method performance specifications have not been established for this fluid. The test result must be integrated into the clinical context for interpretation. Fluid specimen (specimen) PLEURAL FLUID / Unknown 09/08/2017 12:33 PM CDT 09/08/2017 12:47 PM CDT Jason Nash MD LAB - BODY FLUID ORD JANUSZBLES Performing Organization Address [facility] de Phone Number [facility] [address] [phone] * CULTURE AEROBIC (09/08/2017 12:32 PM CDT) Culture Aerobic No Growth [facility] Gram Stain light Polymorphonuclear Cells [facility] Gram Stain No Organism Seen [facility] Pleural fluid specimen (specimen) PLEURAL FLUID / Unknown 09/08/2017 12:32 PM CDT 09/08/2017 12:48 PM CDT Narrative [facility] - 09/15/2017 11:53 AM CDT Specimen Type->Pleural Fluid Resulting Lab: ?? [facility] [address] [place] [address] PH: [phone] Jason Nash MD LAB - MICROBIOLOGY O RDERABLES [address] [phone] * XR CHEST 1VW PORTABLE (09/08/2017 12:23 PM CDT) Anatomical Region Laterality Modality Chest Other Impressions 09/09/2017 8:58 AM CDT IMPRESSION: A feeding tube extends to the stomach and beyond the ihoid-gc-gqlr. A tube projecting over the mediastinum to [...] partially obscured. Dictated by Omi Silverio MD (vice president network). I, Dr. SILAS NGUYỄN MD have personally reviewed and interpreted this examination/study. This report was electronically signed by SILAS GNUYỄN MD ??on 09/09/2017 8:58 AM . Narrative [...] extends to the stomach and beyond the htsar-ca-bfpi. A tubeprojecting over the mediastinum to the [...] partially obscured. Dictated by Omi Silverio MD (vice president network). I, Dr. SILAS NGUYỄN MD have personally [...] the esophagus and tip is off the cfilz-vv-veth. Small right and moderate to large left pleural effusions with associated atelectasis and/or airspace disease is increase on the left. There are bilateral interstitial opacities likely representing pulmonary edema or pneumonia. No pneumothorax is identified. The cardiac silhouette is partially obscured. Report dictated by Rohan Hopkins M.D. (vice president network). I, Dr. VIBHA PHELPS M.D. have personally [...] of the esophagusand tip is off the evbww-nb-vryt. Small right and moderate to large left pleural effusions with associatedatelectasis and/or airspace disease is increase on the left. There arebilateral interstitial opacities likely representing pulmonary edema orpneumonia. No pneumothorax is identified. The cardiac silhouette is partially obscured. Report dictated by Rohan Hopkins M.D. (vice president network). I, Dr. VIBHA PHELPS M.D. have personally reviewed and interpreted thisexamination/study. This report was electronically signed by VIBHA PHELPS M.D. on 09/08/201712:19 PM . Jason Nash MD DIAGNOSTIC IMAGING O RDERABLES * (ABNORMAL) GLUCOSE ACCUCHECK (09/08/2017 5:37 AM CDT) Glucose, Fingerstick 149(H) 70-115mg/d L mg/dL [facility] RALS (BEAKER) Comment:Corporate Tax Manager: WESTON COSTA 09/08/2017 5:37 AM CDT Jason Nash MD LAB - CHEMISTRY ROCYE KLINE Performing Organization Address [facility] Co de Phone Number [facility] (BEAKER) * (ABNORMAL) GLUCOSE ACCUCHECK (09/08/2017 12:27 AM CDT) Glucose, Fingerstick 143(H) 70-115mg/d L mg/dL [facility] (BEAKER) Comment:Corporate Tax Manager: WESTON COSTA 09/08/2017 12:2 7 AM CDT Jason Nash MD LAB - CHEMISTRY ORDMarj KLINE Performing Organization Address [facility]/State/ZIP Co de Phone Number [facility]ALS (BEAKER) * (ABNORMAL) GLUCOSE ACCUCHECK (09/07/2017 4:22 PM CDT) Glucose, Fingerstick 150(H) 70-115mg/d L mg/dL [facility] (BEAKER) Comment:Corporate Tax Manager: MARCELLDEVEN SOLOGERMANIA 09/07/2017 4:22 PM CDT Jason Nash MD LAB - CHEMISTRY RAFFYMarj RAISA [facility] Organization Address City/State/ZIP [...] T6-7, unchanged. Dictated by Keaton Gómez MD (vice president network). I, Dr. Jason NAIK M.D. have personally [...] T6-7, unchanged. Dictated by Keaton Gómez MD (vice president network). IDr. Jason M.D. have personally reviewed and interpreted thisexamination/study. This report was electronically signed by Jason NAIK M.D. on09/07/2017 3:14 PM . Jason Nash MD CT ORDERABLES * (ABNORMAL) GLUCOSE ACCUCHECK (09/07/2017 11:43 AM CDT) Glucose, Fingerstick 140(H) 70-115mg/d L mg/dL [facility] RALS (BEAKER) Comment:Corporate Tax Manager: MARCELL RIVERA 09/07/2017 11:4 3 AM CDT Jason Nash MD LAB - CHEMISTRY ROYCE KLINE [facility] ARI ([place]) * (ABNORMAL) GLUCOSE ACCUCHECK (09/07/2017 5:29 AM CDT) Glucose, Fingerstick 171(H) 70-115mg/d L mg/dL [facility] RALVikki ([place]) Comment:Corporate Tax Manager: FAISAL MAO 09/07/2017 5:29 AM CDT Jason Nash MD LAB - CHEMISTRY ROYEC KLINE Performing Organization Address [facility] Co de Phone Number Jeannette CHAPMAN ([place]) [...] the esophagus and tip is off the zgzhu-xi-raug. Small right and moderate left pleural effusions with associated atelectasis and/or airspace disease is unchanged. There are bilateral interstitial and airspace opacities likely representing pulmonary edema or pneumonia. No pneumothorax is identified. The cardiac silhouette is partly obscured. Report dictated by Rohan Hopkins M.D. (vice president network). I, Dr. SULLY RUANO M.D. have personally [...] the esophagus and tip is off the [id number]. Small right and moderate left pleural effusions with associatedatelectasis and/or airspace disease is unchanged. There are bilateralinterstitial and airspace opacities likely representing pulmonary edema orpneumonia. No pneumothorax is identified. The cardiac silhouette is partly obscured. Report dictated by Rohan Hopkins M.D. (vice president network). I, Dr. SULLY RUANO M.D. have personally reviewed and interpretedthis examination/study. This report was electronically signed by SULLY RUANO M.D. on09/07/2017 12:35 PM . Jason Nash MD DIAGNOSTIC IMAGING O RDERABLES * PTT [facility] (09/07/2017 4:28 AM CDT) APTT 32.8 23.0 - 38.4 Seconds [facility] Comment:Suggested therapeuti c range for full dose I.V. heparin therapy for venous thromboembolism is 66.0-91.0 seconds. Blood specimen (specimen) BLOOD SPECIMEN / Unknown 09/07/2017 4:28 AM CDT 09/07/2017 4:35 AM CDT Narrative [facility] - 09/07/2017 4:59 AM CDT Please ensure that the aPTT specimen is received in the clinical lab within 1 hour of collection if it is used for therapeutic heparin monitoring. Processing of heparinized specimens older than 1 hour may result in inaccurate test results. Is patient on Heparin, Argatroban or Dabigatran?->N Jason Nash MD LAB - COAGULATION OR DERABLES [address] [phone] * (ABNORMAL) PT-INR [facility] (09/07/2017 4:28 AM CDT) PT 18.8(H) 12.1 - 14.8 Seconds [facility] INR 1.6 See Comment [facility] Comment: Suggested therapeutic range for low-intensity coumadin therapy for venous thromboembolism prophylaxis is an INR of 2.0-3.0. ??For high risk patients (Mitral Valve Prosthesis, Atrial Fibrillation, history of TIA/stroke), suggested prophylactic therapeutic range is an INR of 2.5-3.5. Blood specimen (specimen) BLOOD SPECIMEN / Unknown 09/07/2017 4:28 AM CDT 09/07/2017 4:35 AM CDT [facility] - 09/07/2017 4:58 AM CDT Is patient on Heparin, Argatroban or Dabigatran?->N Jason Nash MD LAB - COAGULATION OR DERABLES Performing Organization Address City/State/[facility] [place] [address], [facility] [phone] * PROCALCITONIN LEVEL (09/07/2017 4:28 AM CDT) Procalcitonin 0.47 [facility] Blood specimen (specimen) BLOOD SPECIMEN / Unknown 09/07/2017 4:28 AM CDT 09/07/2017 4:35 AM CDT [facility] - 09/07/2017 5:53 AM CDT The [...] Change in Procalcitonin Calculator is available at [email or web address] ?? If clinical picture has not improved and PCT remains high, reevaluate and consider treatment failure or other causes. Jason Nash MD LAB - CHEMISTRY ROYCE KLINE [address] [phone] * (ABNORMAL) BASIC METABOLIC PANEL (CALCIUM TOTAL) (09/07/2017 4:28 AM CDT) BUN 24 7 - 26 mg/dL [facility] Creatinine 0.7 0.6 - 1.2 mg/dL [facility] Sodium 140 136 - 145 mmol/L [facility] Potassium 4.6(H) 3.5 - 4.5 mmol/L [facility] Chloride 106 98 - 107 mmol/L [facility] CO2 25 22 - 29 mmol/L [facility] Glucose 156(H) 70 - 115 mg/dL [facility] Calcium 8.4 8.4 - 10.2 mg/dL [facility] Anion Gap 14 8 - 18 [facility] BUN/Creatinine Ratio 34(H) 7 - 23 [facility] Osmolality Calculated 297 270 - 300 mOsm/kg [facility] eGFR >60 >60 mL/min/1.7 3 m2 [facility] Blood specimen (specimen) BLOOD SPECIMEN / Unknown 09/07/2017 4:28 AM CDT 09/07/2017 4:35 AM CDT Jason Nash MD LAB - CHEMISTRY ROYCE KLINE Performing Organization Address [facility]/ZIP Co de Phone Number [address] [phone] * (ABNORMAL) MAGNESIUM BLOOD (09/07/2017 4:28 AM CDT) Magnesium 1.4(L) 1.6 - 2.6 mg/dL [facility] Blood specimen (specimen) BLOOD SPECIMEN / Unknown 09/07/2017 4:28 AM CDT 09/07/2017 4:35 AM CDT Jason Nash MD LAB - CHEMISTRY ROYCE KLINE Performing Organization Address [facility] Co de Phone Number [address] [phone] * PHOSPHORUS BLOOD (09/07/2017 4:28 AM CDT) Phosphorus 2.9 2.3 - 4.7 mg/dL [facility] Blood specimen (specimen) BLOOD SPECIMEN / Unknown 09/07/2017 4:28 AM CDT 09/07/2017 4:35 AM CDT Jason Nash MD LAB - CHEMISTRY ROYCE KLINE Performing Organization Address [facility]/ZIP Co de Phone Number [address] [phone] * (ABNORMAL) CBC W AUTO DIFFERENTIAL (09/07/2017 4:28 AM CDT) WBC 10.1 3.5 - 10.5 10? 3 /uL [facility] Comment:Results are confirme d by repeat analysis. RBC 2.72(L) 4.30 - 5.70 10? 6 /uL [facility] Hemoglobin 7.4(L) 13.5 - 17.5 g/dL [facility] Hematocrit 25.1(L) 39.0 - 50.0 % [facility] MCV 92.3 81.0 - 97.0 fL [facility] MCH 27.2(L) 28.0 - 34.0 pg [facility] MCHC 29.5(L) 32.0 - 36.0 g/dL [facility] Platelet Count 313 150 - 400 10? 3 /uL [facility] RDW-SD 61.9(H) 36.0 - 50.0 fL [facility] RDW-CV 19.0(H) 11.2 - 14.8 % [facility] MPV 12.0 9.3 - 12.8 fL [facility] nRBC Absolute 0.03(H) 0 10? 3 /uL [facility] nRBC Auto 0.3(H) 0 /100 WBC [facility] Neutrophils % 90.7(H) 35.0 - 70.0 % [facility] Lymphocytes % 4.1(L) 19.7 - 55.1 % [facility] Monocytes % 5.0 3.0 - 15.0 % [facility] Eosinophils % 0.0 0.0 - 6.0 % [facility] Basophil % 0.2 0.0 - 1.5 % [facility] Neutrophils Absolute 9.1(H) 1.6 - 7.0 10? 3 /uL [facility] Lymphocyte Absolute 0.4(L) 0.8 - 2.9 10? 3 /uL [facility] Monocytes Absolute 0.50 0.14 - 0.66 10? 3 /uL [facility] Eosinophils Absolute 0.00 0.00 - 0.22 10? 3 /uL [facility] Basophils Absolute 0.02 0.00 - 0.06 10? 3 /uL [facility] Immature Granulocytes % 1.4(H) 0.0 - 1.0 % [facility] Blood specimen (specimen) BLOOD SPECIMEN / Unknown 09/07/2017 4:28 AM CDT 09/07/2017 4:35 AM CDT Jason Nash MD LAB - HEMATOLOGY ORD ERABLES [facility] [address] [place] [address] * CBC W AUTO DIFFERENTIAL (09/07/2017 4:28 AM CDT) Blood specimen (specimen) BLOOD SPECIMEN / Unknown 09/07/2017 4:28 AM CDT Narrative [facility] - 09/07/2017 4:43 AM CDT The following orders were created for panel order CBC w Differential. Procedure ? Abnormality ? Status ? --------- ? ------ ? CBC WITH DIFFERENTIAL[[id number]] ? Abnormal ?Final result ? Please view results for these tests on the individual orders. Jason Nash MD LAB - HEMATOLOGY RAFFY SNOWDEN Performing Organization Address [facility] de Phone Number [facility] [address] * (ABNORMAL) GLUCOSE ACCUCHECK (09/07/2017 12:08 AM CDT) Glucose, Fingerstick 143(H) 70-115mg/d L mg/dL [facility] [place]) Comment:Corporate Tax Manager: FAISAL MAO 09/07/2017 12:0 8 AM CDT Jason Nash MD LAB - CHEMISTRY ROYCE KLINE Performing Organization Address [facility] de Phone Number [facility] [place]) * EKG 12-LEAD (09/07/2017 12:00 AM CDT) EKG [facility] Comment: Exam Date/Time: ?? Sep 07 [...] noted Reconfirmed by Mauri ROY SCOTT ([id number]), editor greeting card Robi Pavon ([phone]) on 09/10/2017 6:07:09 PM Also confirmed by Mauri ROY SCOTT ([id number]), editor greeting card Robi Pavon ([phone]) ??on 09/10/2017 6:07:41 PM Referred By: REFERRING NO ? Confirmed By:FREDA ROY M.D. 09/07/2017 Rebecca Melendez [facility] ECG ORDERABLES [facility] * XR ABDOMEN KUB PORTABLE (09/06/2017 [...] AM. Report dictated by Rohan Hopkins MD (vice president network). I, Dr. SULLY RUANO M.D. have personally [...] AM. Report dictated by Rohan Hopkins MD (vice president network). I, Dr. SULLY RUANO M.D. have personally reviewed and interpretedthis examination/study. This report was electronically signed by SULLY RUANO M.D. on09/07/2017 12:20 PM . Rebecca Maxwell [place] HEEL WASHER STRINGING MACHINE OPERATOR-PLATER SUPERVISOR DIAGNOSTIC IMAGIN G ORDERABLES * (ABNORMAL) BLOOD GASES ART COMPLETE [facility] OR (09/06/2017 4:21 PM CDT) pH Arterial 7.38 7.35 - 7.45 [facility] pCO2 Arterial 47(H) 35 - 45 mmHg [facility] pO2 Arterial 169(H) 71 - 95 mmHg [facility] HCO3 Arterial 27.0(H) 22.0 - 26.0 mmol/L [facility] TCO2 Arterial 28.4 25.0 - 29.0 mmol/L [facility] Base Excess Arterial 1.5 -2.0 - 2.0 mmol/L [facility] Hemoglobin Arterial 8.6(L) 13.5 - 17.5 g/dL [facility] Oxyhemoglobin Arterial 97.9 95.0 - 100.0 % [facility] Carboxyhemoglobin 0.3 0.0 - 3.0 % [facility] Methemoglobin 0.3 0.0 - 2.0 % [facility] FI O2 Arterial 50.0 % [facility] Ionized Calcium Whole Blood 1.14 mmol/L [facility] Adjusted Ionized Calcium 1.13(L) 1.19 - 1.34 mmol/L [facility] Sodium Whole Blood 140 135 - 145 mmol/L [facility] Potassium Whole Blood 4.2 3.5 - 5.5 mmol/L [facility] [employer] Chloride Whole Blood 109 101 - 111 mmol/L [facility] [employer] Glucose Whole Blood 134(H) 70 - 110 mg/dL [facility] Lactic Acid Whole Blood 2.5 0.5 - 3.4 mmol/L [facility] Blood specimen (specimen) 09/06/2017 4:21 PM CDT 09/06/2017 4:30 PM CDT Jason Nash MD LAB - BLOOD GASES OR DERABLES [address] [phone] * (ABNORMAL) GLUCOSE ACCUCHECK (09/06/2017 4:19 PM CDT) Glucose, Fingerstick 128(H) 70-115mg/d L mg/dL [facility] RALS ([place]) Comment:Corporate Tax Manager: STONE ALI 09/06/2017 4:19 PM CDT Jason Nash MD LAB - CHEMISTRY ORDE RABLES Performing Organization Address [facility] Co de Phone Number [facility] ([place]) * XR CHEST 1VW PORTABLE (09/06/2017 2:48 PM CDT) Anatomical Region Laterality Modality Chest Other Impressions 09/06/2017 4:13 PM CDT IMPRESSION: Right internal jugular approach central venous catheters superimposes the superior vena cava. Endotracheal tube terminates at the mid thoracic trachea. A gastric tube and a feeding tube follows the course of the esophagus and tips are off the [id number]. There is a moderate left pleural effusion, intervally decreased. There is a small right pleural effusion, unchanged. There are bilateral interstitial and airspace opacities likely representing pulmonary edema or pneumonia. No pneumothorax is identified. The cardiac silhouette is partly obscured. Report dictated by Rohan Hopkins M.D. (vice president network). I, Dr. SILAS NGUYỄN MD have personally [...] of theesophagus and tips are off the [id number]. There is a moderate left pleural effusion, intervally decreased. There lisa small right pleural effusion, unchanged. There are bilateralinterstitial and airspace opacities likely representing pulmonary edema orpneumonia. No pneumothorax is identified. The cardiac silhouette is partly obscured. Report dictated by Rohan Hopkins M.D. (vice president network). I, Dr. SILAS NGUYỄN MD have personally reviewed and interpreted thisexamination/study. This report was electronically signed by SILAS NGUYỄN MD on 09/06/20174:13 PM . Jason Nash MD DIAGNOSTIC IMAGING O RDERABLES * CULTURE LEGIONELLA (09/06/2017 2:05 PM CDT) Culture Legionella No Growth Legionella 1 week. [facility] Bronchial Washings SPECIMEN FROM LUNG OBTAINED BY BRONCHIAL WASHING PROCEDURE / Unknown 09/06/2017 2:05 PM CDT 09/06/2017 2:23 PM CDT Narrative [facility] - 09/13/2017 8:55 AM CDT Specimen Type->Bronchial Washings Resulting Lab: ?? [facility] [address] [place] [address] PH: [phone] Jason Nash MD LAB - MICROBIOLOGY O RDERABLES [facility] [address] [place], [place] [address] [phone] * CULTURE AEROBIC (09/06/2017 2:05 PM CDT) Culture Aerobic No Growth [facility] Gram Stain Moderate White Blood Cells [facility] Gram Stain No Organism Seen [facility] Bronchial Washings SPECIMEN FROM LUNG OBTAINED BY BRONCHIAL WASHING PROCEDURE / Unknown 09/06/2017 2:05 PM CDT 09/06/2017 2:23 PM CDT [facility] - 09/08/2017 11:09 AM CDT Specimen Type->Bronchial Washings Resulting Lab: ?? [facility] MICROBIOLOG[facility] [address] [place] [address] PH: [phone] Jason Nash MD LAB - MICROBIOLOGY O RDERABLES [address] [phone] * CULTURE BLOOD (09/06/2017 12:35 PM CDT) Culture Blood No Growth at 5 days [facility] Blood specimen (specimen) DEVICE / Unknown 09/06/2017 12:35 PM CDT 09/06/2017 12:44 PM CDT [facility] - 09/11/2017 4:45 PM CDT Resulting Lab: ?? [facility] MICROBIOLOG[facility] [address] [place] [address] PH: [phone] Bandar Mansfield MD LAB - MICROBIOLOGY ORDERABLES [address] [phone] * CULTURE BLOOD (09/06/2017 12:11 PM CDT) Culture Blood No Growth at 5 days [facility] Blood specimen (specimen) (Blood Line - Arterial) 09/06/2017 12:11 PM CDT 09/06/2017 12:16 PM CDT [facility] - 09/11/2017 4:30 PM CDT Draw 15 minutes after Culture 1 from a different site Resulting Lab: ?? [facility] MICROBIOLOG[facility] [address] [place] [address] PH: [phone] Bandar Mansfield MD LAB - MICROBIOLOGY ORDERABLES [facility] [address] [place] [address], [facility] [phone] * (ABNORMAL) BLOOD GASES ART COMPLETE [facility] (09/06/2017 12:11 PM CDT) pH Arterial 7.28(L) 7.35 - 7.45 [facility] pCO2 Arterial 55(H) 35 - 45 mmHg [facility] pO2 Arterial 152(H) 71 - 95 mmHg [facility] HCO3 Arterial 25.0 22.0 - 26.0 mmol/L [facility] TCO2 Arterial 26.7 25.0 - 29.0 mmol/L [facility] Base Excess Arterial -2.0 -2.0 - 2.0 mmol/L [facility] Hemoglobin Arterial 8.6(L) 13.5 - 17.5 g/dL [facility] Oxyhemoglobin Arterial 97.6 95.0 - 100.0 % [facility] Carboxyhemoglobin 0.3 0.0 - 3.0 % [facility] Methemoglobin 0.6 0.0 - 2.0 % [facility] FI O2 Arterial 100.0 % [facility] Ionized Calcium Whole Blood 1.18 mmol/L [facility] Adjusted Ionized Calcium 1.12(L) 1.19 - 1.34 mmol/L [facility] Sodium Whole Blood 142 135 - 145 mmol/L [facility] Potassium Whole Blood 3.8 3.5 - 5.5 mmol/L [facility] Chloride Whole Blood 106 101 - 111 mmol/L [facility] Glucose Whole Blood 166(H) 70 - 110 mg/dL [facility] Lactic Acid Whole Blood 2.8(HH) 0.5 - 2.0 mmol/L [facility] Comment:Critical value(s) bailey ve been verified and called to and read back by Emma Ledezma at 1223 on 09/06/17. Blood specimen (specimen) 09/06/2017 12:11 PM CDT 09/06/2017 12:16 PM CDT Bandar Mansfield MD LAB - BLOOD GASES ORDERABLES Performing Organization Address [facility] Co de Phone Number [address] [phone] * (ABNORMAL) DIGOXIN LEVEL (09/06/2017 12:02 PM CDT) Digoxin <0.3(L) 0.8 - 2.0 ng/mL [facility] Comment: The showcase maker of Digoxin Immune Ez has stated that no immunoassay technique is suitable for quantitating digoxin in plasma/serum from patients on antibody fragment therapy. ? Blood specimen (specimen) BLOOD SPECIMEN / Unknown 09/06/2017 12:02 PM CDT 09/06/2017 12:08 PM CDT Bandar Mansfield MD LAB - CHEMISTRY OR DERABLES Performing Organization Address [facility] [place] [address], [facility] [phone] * (ABNORMAL) PTT [facility] (09/06/2017 11:57 AM CDT) APTT 46.4(H) 23.0 - 38.4 Seconds [facility] Comment:Suggested therapeuti c range for full dose I.V. heparin therapy for venous thromboembolism is 66.0-91.0 seconds. Blood specimen (specimen) BLOOD SPECIMEN / Unknown 09/06/2017 11:57 AM CDT 09/06/2017 12:08 PM CDT Narrative [facility] - 09/06/2017 12:21 PM CDT Please ensure that the aPTT specimen is received in the clinical lab within 1 hour of collection if it is used for therapeutic heparin monitoring. Processing of heparinized specimens older than 1 hour may result in inaccurate test results. Is patient on Heparin, Argatroban or Dabigatran?->N Bandar Mansfield MD LAB - COAGULATION ORDERABLES [address] [phone] * (ABNORMAL) PT-INR [facility] (09/06/2017 11:57 AM CDT) Pathologist [facility] PT 24.5(H) 12.1 - 14.8 Seconds [facility] INR 2.2 See Comment [facility] Comment: Suggested therapeutic range for low-intensity coumadin therapy for venous thromboembolism prophylaxis is an INR of 2.0-3.0. ??For high risk patients (Mitral Valve Prosthesis, Atrial Fibrillation, history of TIA/stroke), suggested prophylactic therapeutic range is an INR of 2.5-3.5. Blood specimen (specimen) BLOOD SPECIMEN / Unknown 09/06/2017 11:57 AM CDT 09/06/2017 12:08 PM CDT Narrative [facility] - 09/06/2017 12:20 PM CDT Is patient on Heparin, Argatroban or Dabigatran?->N Bandar Mansfield MD LAB - COAGULATION ORDERABLES Performing Organization Address City/[facility]/ZIP Co de Phone Number [address] [phone] * TROPONIN I (09/06/2017 11:57 AM CDT) [facility] Troponin I 0.027 <0.032 ng/mL [facility] Blood specimen (specimen) BLOOD SPECIMEN / Unknown 09/06/2017 11:57 AM CDT 09/06/2017 12:08 PM CDT Bandar Mansfield MD LAB - CHEMISTRY OR DERABLES [address] [phone] * (ABNORMAL) COMPREHENSIVE METABOLIC PANEL (09/06/2017 11:57 AM CDT) Pathologist [facility] BUN 21 7 - 26 mg/dL [facility] Creatinine 0.7 0.6 - 1.2 mg/dL [facility] Sodium 143 136 - 145 mmol/L [facility] Potassium 3.8 3.5 - 4.5 mmol/L [facility] Chloride 108(H) 98 - 107 mmol/L [facility] CO2 20(L) 22 - 29 mmol/L [facility] Glucose 170(H) 70 - 115 mg/dL [facility] Calcium 8.5 8.4 - 10.2 mg/dL [facility] Protein Total 6.2 6.0 - 8.3 g/dL [facility] Albumin 1.8(L) 3.4 - 5.0 g/dL [facility] Bilirubin Total 0.3 0.2 - 1.2 mg/dL [facility] Alkaline Phosphatase 204(H) 40 - 150 Units/L [facility] ALT 10 0 - 55 Units/L [facility] AST 21 5 - 34 Units/L [facility] Anion Gap 19(H) 8 - 18 [facility] BUN/Creatinine Ratio 30(H) 7 - 23 [facility] Osmolality Calculated 303(H) 270 - 300 mOsm/kg [facility] Albumin/Globulin Ratio 0.4(L) 1.1 - 2.3 [facility] eGFR >60 >60 mL/min/1.7 3 m2 [facility] Blood specimen (specimen) BLOOD SPECIMEN / Unknown 09/06/2017 11:57 AM CDT 09/06/2017 12:08 PM CDT Bandar Mansfield MD LAB - CHEMISTRY OR DERABLES Performing Organization Address City/State/[facility] Co de Phone Number [address] [phone] * (ABNORMAL) CBC W AUTO DIFFERENTIAL (09/06/2017 11:57 AM CDT) WBC 27.8(H) 3.5 - 10.5 10? 3 /uL [facility] Comment:All CBC parameters h ave been checked. RBC 2.99(L) 4.30 - 5.70 10? 6 /uL [facility] Hemoglobin 8.2(L) 13.5 - 17.5 g/dL [facility] Hematocrit 28.5(L) 39.0 - 50.0 % [facility] MCV 95.3 81.0 - 97.0 fL [facility] MCH 27.4(L) 28.0 - 34.0 pg [facility] MCHC 28.8(L) 32.0 - 36.0 g/dL [facility] Platelet Count 432(H) 150 - 400 10? 3 /uL [facility] RDW-SD 64.7(H) 36.0 - 50.0 fL [facility] RDW-CV 19.1(H) 11.2 - 14.8 % [facility] [facility] MPV 12.1 9.3 - 12.8 fL [facility] nRBC Absolute 0.09(H) 0 10? 3 /uL [facility] nRBC Auto 0.3(H) 0 /100 WBC [facility] Neutrophils % 92.0(H) 35.0 - 70.0 % [facility] Lymphocytes % 5.2(L) 19.7 - 55.1 % [facility] Monocytes % 2.6(L) 3.0 - 15.0 % [facility] Eosinophils % 0.1 0.0 - 6.0 % [facility] Basophil % 0.1 0.0 - 1.5 % [facility] Neutrophils Absolute 25.6(H) 1.6 - 7.0 10? 3 /uL [facility] Lymphocyte Absolute 1.5 0.8 - 2.9 10? 3 /uL [facility] Monocytes Absolute 0.71(H) 0.14 - 0.66 10? 3 /uL [facility] Eosinophils Absolute 0.03 0.00 - 0.22 10? 3 /uL [facility] Basophils Absolute 0.04 0.00 - 0.06 10? 3 /uL [facility] Immature Granulocytes % 3.0(H) 0.0 - 1.0 % [facility] Blood specimen (specimen) BLOOD SPECIMEN / Unknown 09/06/2017 11:57 AM CDT 09/06/2017 12:08 PM CDT Bandar Mansfield MD LAB - [place] [address], [facility] [phone] * (ABNORMAL) LACTIC ACID BLOOD (09/06/2017 11:57 AM CDT) Lactic Acid-Stat 3.3(HH) 0.5 - 2.0 mmol/L [facility] Comment:RESULTS CALLED TO AN D READ BACK BY DONTAE MACIEL AT 1:07 PM, 09/06/2017 Blood specimen (specimen) BLOOD SPECIMEN / Unknown 09/06/2017 11:57 AM CDT 09/06/2017 12:08 PM CDT Bandar Mansfield MD LAB - CHEMISTRY OR DERABLES Performing Organization Address City/State/[facility] [place] [address], [facility] [phone] * CBC W AUTO DIFFERENTIAL (09/06/2017 11:57 AM CDT) Blood specimen (specimen) BLOOD SPECIMEN / Unknown 09/06/2017 11:57 AM CDT Narrative [facility] - 09/06/2017 12:16 PM CDT The following orders were created for panel order CBC w Differential. Procedure ? Abnormality ? Status ? --------- ? ------ ? CBC WITH DIFFERENTIAL[[id number]] ? Abnormal ?Final result ? Please view results for these tests on the individual orders. Bandar Mansfield MD LAB - HEMATOLOGY O RDERABLES [facility] [address] [place] [address], [facility] * XR CHEST 1VW PORTABLE (09/06/2017 11:56 [...] intact. Report dictated by Rohan Hopkins M.D. (vice president network). I, Dr. VIBHA PHELPS M.D. have personally [...] intact. Report dictated by Rohan Hopkins M.D. (vice president network). I, Dr. VIBHA PHELPS M.D. have personally reviewed and interpreted thisexamination/study. This report was electronically signed by VIBHA PHELPS M.D. on 09/07/201712:31 PM . Bandar Mansfield MD DIAGNOSTIC IMAGING ORDERABLES * EKG 12-LEAD (09/06/2017 12:00 AM CDT) EKG [facility] Comment: Exam Date/Time: ?? Sep 06 [...] bpm Confirmed by MD Jaime, Aneta ([id number]), editor greeting card Robi Pavon ([id number]) on 09/10/2017 5:58:12 PM Referred By: REFERRING NO ? Confirmed By:Aneta Sandoval MD 09/06/2017 Bandar Mansfield MD ECG ORDERABLES [facility] documented in this encounter Visit Diagnoses [...] 0908, Until Kellen 09/15/17 at 0910, Jean Varags: soila override 0.9% NaCl infusion at 300 mL/hr, Intravenous, ONCE, 1 dose, On Kellen 09/15/17 at 1000 $ New Bag/Syringe 09/15/2017 9:10 AM CDT 300 mL/hr 0.9% NaCl injection 10 mL 10 mL, Intracatheter, PRN, Other, Starting on 09/10/17 at 0000, Until 09/19/17 at 1420 albuterol (PROVENTIL;VENTOLIN) (5 MG/ML) 0.5% nebulizer solution 2.5 mg 2.5 mg, Inhalation, EVERY 4 HOURS, First dose on [facility] 09/10/17 at 0000, Until Discontinued, Dilute prior to administration via nebulization. $ Given 09/19/2017 12:52 PM CDT 2.5 mg $ Given 09/19/2017 8:25 AM CDT 2.5 mg $ Given 09/19/2017 4:10 AM CDT 2.5 mg amiodarone (CORDARONE) tablet 200 mg 200 mg, Oral, 2 TIMES DAILY, First dose on [facility] 09/10/17 at 0900, Until Discontinued $ Given [...] 10 mg, Rectal, ONCE, 1 dose, On [place] 09/11/17 at 1100 $ Given 09/11/2017 10:57 [...] Mouth/Throat, 2 TIMES DAILY, First dose on [facility] 09/10/17 at 0900, Until Discontinued, Swab mouth [...] RCP)0505 ($ Given - Provider: Jadon Araujo [facility])0840 ($ Given - Provider: Taylor Coleman [facility])1341 ($ Given - Provider: Taylor Coleman [facility])1725 ($ Given - Provider: Taylor Coleman, [facility])2035 ($ Given - Provider: Jadon Araujo [facility]) 0141 ($ Given - Provider: Jadon Araujo [facility])0611 ($ Given - Provider: Jadon Araujo [facility])0839 ($ Given - Provider: Taylor Coleman [facility])1259 ($ Given - Provider: Taylor Coleman, [facility])1650 ($ Given - Provider: Taylor Coleman [facility])2019 ($ Given - Provider: Michael Callahan [facility]) 0008 ($ Given - Provider: Michael Callahan [facility])0410 ($ Given - Provider: Michael Callahan [facility])0825 ($ Given - Provider: Taylor Coleman [facility])1252 ($ Given - Provider: Taylor Coleman [facility]) amiodarone (CORDARONE) tablet 200 mg (CANCELED) [...] SLOWLY 0449 ($ Given - Provider: Malaika Gonzalez, DONTAE) potassium chloride (KLOR-CON) packet 40 mEq [...] documented as of this encounter Care Teams Outbound Sales Advisor Relationship Specialty Start Date End Date Briana Medeiros MD [address] [place] [id number] PCP - General Family Medicine 09/04/17 09/18/17 Mau Bridges MD [address] [place] [phone] PCP - General 09/19/17 02/14/18 documented as of this encounter
--- OUTSIDE RECORDS SUMMARY | 2024-05-25 03:06 | XMS_ITS | Encounter Summary ---
Author Organization [facility] Address [address] [facility] [place] [address] Care Team Providers Care Chainstitch Seat Joiner Name Role Phone Briana Medeiros MD Primary Care Provider [phone] Mau Bridges MD Primary Care Provider Encounter Details Date Type Department Care Team (Late Contact Info) Description 06/13/2017 Orders Only [facility] [address] [place] [address] Puneet Faustin MD [address] [facility] [address] [place] [address] Social History Tobacco Use Types Packs/Day Years Used Date Smoking Tobacco: Never Assessed Sex and Gender Information Value Date Recorded Sex Assigned at Not on file Gender Identity Not on file Sexual Orientation Not on file documented as of this encounter Plan of Treatment Upcoming Encounters Date Type Department Care Team (Late Contact Info) Description 07/09/2024 12:30 PM 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 [place] [facility] [place] [address] [place] [address], [place] [id number] Twin Miller MD [address] [place] [address] [address] [place] [address] 09/19/2024 2:00 PM CDT Office Visit [facility] - Orthopedic Surgery [address] [place] [address] Larry Alexander MD [address] [facility] [address] [place] [address] documented as of this encounter Visit Diagnoses Not on filedocumented in this encounter Additional Health Concerns Infection Onset Date Last Indicated Resolved Time 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
--- OUTSIDE RECORDS SUMMARY | 2024-05-25 03:06 | XMS_ITS | Encounter Summary ---
Author Organization [facility] Address [address] [place] [address] Care Team Providers Care Edge Trimmer Name Role Phone Briana Medeiros MD Primary Care Provider [phone] Reason for Visit * Auth/Cert Specialty Diagnoses / Procedures Referred By Contac t Referred To Contact Diagnoses ACUTE HYPOXEMIC RESPIRATORY FAILURE Referral ID Status Reason Start Date Expiration Date Visits Re quested Visits Authorized [id number] 1 1 Encounter Details Date Type Department Care Team (Late st Contact Info) Description 09/13/2017 6:10 PM CDT - 09/13/2017 8:24 PM CDT Surgery [facility] [address] [place] [address] Moise Castnaeda MD [address] [place] [address] TRACHEOSTOMY Surgery Details Date/Time Status Location OR Service Patient Class Case Class Case Type Trauma Case? 09/13/2017 6:10 PM Posted [facility] OR OR 01 ENT Inpatient Non-Urgen t Add On Panel 1 Procedure LRB Anes Op Region Wound Class Comments TRACHEOSTOMY N/A General Neck Clean Contaminate d Patient is vented Surgeon Surgeon Role Service Panel Moise Castaneda MD Primary ENT 1 Leslye Wood MD [...] Discharge Summary Patient ID: José Miguel Keys [id number] 66 y.o. 1950 Admit date: 09/06/2017 Discharge [...] awake during the day and Volume AC(RR=15, Wo=001, PEEP=8) with sleep Oral care BID ?? [...] 1.0 Color Latest Ref Range: Colorless, Straw [place] (Abnormal) Clarity Latest Ref Range: Clear Slighty [...] was intubated Neurologic: nonfocal, generalized weakness Disposition: [facility] care facility Patient Instructions: Current Discharge Medication [...] 2 times daily with morning and evening baker helperIgor Gilliam * oxyCODONE (immediate release) 5 MG [...] MG capsule Commonly known as: SINEquan ergocalciferol 65711 UNITS capsule Commonly known as: DRISDOL ferrous [...] Commonly known as: KENALOG vitamin D (ergocalciferol) 87142 UNITS capsule Commonly known as: DRISDOL Activity: [...] Level of Care:LTAC [facility] ad operations coordinator MD Made Aware of Special Needs (if applicable): Facility aware of trach/vent and Tube and tube feeding needs RN Call Report to: [phone] RN Fax D/C Orders to: [phone] Transportation (company and number): [facility] [phone] trip number [id number] Certificate of Medical Necessity rationale: Trach and Vent Date/time of transfer: 09/19/2017 1300 Accepting MD: Dr. Espino [phone] Completed and Signed EL263Q (if applicable) N/A Family/Other Notified of Transfer (name/phone): Trinity at [phone] Authorization Skilled Care: N/A Authorization for Transportation: trip ticket [id number] Comments: Patient has been accepted at [facility]. Patient and family agreeable with discharge plan. Christina Mendieta RN * Christina Mendieta RN - 09/19/2017 11:10 AM CDT Patient to be discharged to [facility] At the [facility] Location. Medical team aware and given report number for report.([phone]) Nursing given number for report [phone]. [facility] set up for transport at [...] Labs Component Name 09/10/17 0557 PO2ART 80 IUC5WGH 44 FRI0AVS 30.0* ?? Radiology: ?? CXR this morning [...] Labs Component Name 09/10/17 0557 PO2ART 80 YEV5VFA 44 ZIV9VZY 30.0* ?? Radiology: ?? CXR this morning [...] Gastroenterology Fellow Vira Wilson MD Gastroenterology Fellow (o) [phone] * Jaclyn Monsivais RCP - 09/16/2017 12:08 [...] Case management updated [facility] facility [facility] ad operations coordinator ley of potential discharge date. Will continue to keep facility updated. Christina Mendieta RN 09/16/2017 10:58 AM [phone] * Nicolas Fuentes OT - 09/16/2017 10:23 AM CDT [facility] Physical Medicine and Rehabilitation Occupational Therapy Progress Note Patient: José Miguel Keys Med Record Number: [id number] Date of : 1950 Age: 66 y.o. [...] edge of bed With minimal assist ?? Jail Goal: Patient to discharge to appropriate next [...] PT - 09/16/2017 10:22 AM CDT [facility] Physical Medicine and Rehabilitation PhysicalTherapy Progress Note Co-tx with OT and RT Patient: José Miguel Keys Med Record Number: [id number] Date of : 1950 Age: 66 y.o. [...] on edge of bed With minimal assist Jail Goal: Patient to discharge to appropriate next [...] per nursing assess Estimated Energy Needs: KCAL: 3485-5561 ([facility] 2010-obese/vent (97.3kg)) Protein (g): 135-165 (1.8- [...] Labs Component Name 09/10/17 0557 PO2ART 80 KXH1BHK 44 ALS0AAD 30.0* ?? Radiology: ?? CXR this morning [...] 7.45 7.51* 7.41 PO2ART 80 274* 65* NYM4CAK 44 38 45 BEART 5.4* 5.7* 2.4* [...] to [facility] Critical Care Attending: Dr. Yogehs Duncan MD, MPH * Jaclyn Monsivais, [facility] - 09/15/2017 3:53 PM CDT Patient [...] OT - 09/15/2017 2:15 PM CDT [facility] Physical Medicine and Rehabilitation Occupational Therapy Progress Note Patient: José Miguel Keys Med Record Number: [id number] Date of : 1950 Age: 66 y.o. [...] stand With mod assist and X 2 Manager Pacu Goal:Patient to discharge to appropriate next level [...] PT - 09/15/2017 2:10 PM CDT [facility] Physical Medicine and Rehabilitation PhysicalTherapy Progress Note Co-tx with OT and RT Patient: José Miguel Keys Med Record Number: [id number] Date of : 1950 Age: 66 y.o. [...] on edge of bed With minimal assist Manager Pacu Goal: Patient to discharge to appropriate next [...] TBILI 0.3 ALB 1.8* -Impression: Need for termite control representative enteral feedings -Plan/ recommendations: - PEG today [...] Labs Component Name 09/10/17 0557 PO2ART 80 FTB4SGP 44 EDD0HDX 30.0* ?? Radiology: ?? CXR this morning [...] placement - patient has been accepted at [facility] * Bandar Davis MD - 09/15/2017 [...] Davis MD 09/15/2017 7:14 AM * Vita Troncoos MD - 09/14/2017 4:10 PM CDT MEDICAL [...] Labs Component Name 09/10/17 0557 PO2ART 80 IVW2THW 44 PXI4ADH 30.0* ?? Radiology: ?? CXR this morning [...] OT - 09/14/2017 1:20 PM CDT [facility] Physical Medicine and Rehabilitation Occupational Therapy Progress Note Patient: José Miguel Keys Med Record Number: [id number] Date of : 1950 Age: 66 y.o. [...] stand With mod assist and X 2 Manager Pacu Goal:Patient to discharge to appropriate next level [...] PT - 09/14/2017 1:20 PM CDT [facility] Physical Medicine and Rehabilitation PhysicalTherapy Progress Note Updated orders received s/p tracheostomy, no re-evaluation indicated - continue PT POC Co-tx with OT and RT Patient: José Miguel Keys Med Record Number: [id number] Date of : 1950 Age: 66 y.o. [...] on edge of bed With minimal assist Jail Goal: Patient to discharge to appropriate next [...] - 09/14/2017 9:53 AM CDT Spoke with ad operations coordinator from [facility]. Patient has been accepted at facility and may go when patient is medically stable. Nursing staff aware. Christina Mendieta RN 09/14/2017 9:57 AM * Beata Shafer, PT - 09/14/2017 7:51 AM CDT [facility] Department of Physical Medicine & Rehabilitation Progress Note Patient: José Miguel Keys [facility] Record Number: [id number] Date of : 1950 Age: 66 y.o. 09/14/17 0751 Therapy on Hold Therapy on hold Surgery. Chart reviewed, patient to OR with general anesthesia. Patient now on holdfrom therapy services. Please re-consult when patient is appropriate for functional mobility and therapy interventions. Beata Shafer, PT 09/14/2017 7:52 AM * Gabriela Isaacs OT - 09/14/2017 7:51 AM CDT Occupational Therapy [facility] Department of Physical Medicine & Rehabilitation Progress Note Patient: José Miguel Keys [facility] Record Number: [id number] Date of : 1950 Age: 66 y.o. [...] LTAC placement. '[facility]. Referral sent and call placed to e commerce merchandising coordinator and will review the patients eligibility today. Patient to have trach and PEG placed today. Christina Mendieta RN 09/13/2017 10:27 AM [phone] * Kalyan Cook RCP - 09/13/2017 9:35 [...] 09/13/2017 9:30 AM CDT Occupational Therapy [facility] Physical Medicine and Rehabilitation Occupational Therapy Progress Note Patient: José Miguel Keys Med Record Number: [id number] Date of : 1950 Age: 66 y.o. [...] 2 and Patient will perform AROM Independently Jail Goal:Patient to discharge to appropriate next level of inpatient care If patient is discharged from the facility, this note serves as a discharge note if further occupational therapy visits did not occur. Following therapy session, patient left in bed, with call light within reach and with RNGlendy aware. Gabriela Isaacs OT * Beata Shafer PT - 09/13/2017 9:30 AM CDT [facility] Physical Medicine and Rehabilitation PhysicalTherapy Progress Note Co-tx with OT and RT Patient: José Miguel Keys Med Record Number: [id number] Date of : 1950 Age: 66 y.o. [...] on edge of bed With minimal assist Manager Pacu Goal: Patient to discharge to appropriate next [...] Labs Component Name 09/10/17 0557 PO2ART 80 BXC4FWP 44 SWK7TOK 30.0* ?? Radiology: ?? CXR this morning [...] 7.45 7.51* 7.41 PO2ART 80 274* 65* YJT3FCH 44 38 45 BEART 5.4* 5.7* 2.4* [...] Yogesh Duncan MD, MPH * Tessie Harris, FERMENTER OPERATOR - 09/12/2017 5:05 PM CDT SW following pt for discharge planning. Pt and family would prefer LTAC placement at [facility]. Family does not want pt to return to [place]. SW to submit LTAC referral to [facility] and continue following. Tessei Harris 09/12/2017 5:08 PM [phone] * Beata Shafer, PT - 09/12/2017 3:23 PM CDT [facility] Department of Physical Medicine & Rehabilitation Progress Note Patient: José Miguel Keys Med Record Number: [id number] Date of : 1950 Age: 66 y.o. Per discussion with MICU 3, cancel therapy this date 2/2 pt going for tracheostomy. Will continue to follow. Beata Shafer, PT 09/12/2017 3:23 PM * Gabriela Isaacs, OT - 09/12/2017 3:11 PM CDT Occupational Therapy [facility] Department of Physical Medicine & Rehabilitation Progress Note Patient: José Miguel Keys Med Record Number: [id number] Date of : 1950 Age: 66 y.o. [...] Pain affecting intake: No Estimated Needs: KCAL: 6960-3723 ([facility] 2010-obese/vent (97.3kg)) Protein (g): 135-165 (1.8-2.2g/kg [...] Labs Component Name 09/10/17 0557 PO2ART 80 LCF3CPS 44 FSH5WNR 30.0* ?? Radiology: ?? CXR this morning [...] 7.45 7.51* 7.41 PO2ART 80 274* 65* XDI0FGV 44 38 45 BEART 5.4* 5.7* 2.4* [...] Labs Component Name 09/10/17 0557 PO2ART 80 AXR0PCO 44 PJL4KUR 30.0* ?? Radiology: ?? CXR this morning [...] of Pulmonary, Critical Care, & Sleep Medicine [facility] Pager: [phone] * Hoa Taylor RN - 09/10/2017 11:51 [...] Labs Component Name 09/10/17 0557 PO2ART 80 EZG5ZFO 44 VMX0VOY 30.0* ?? Radiology: ?? CXR this morning [...] of Pulmonary, Critical Care, & Sleep Medicine [facility] Pager: [phone] Associated attestation - Jason Nash MD - [...] Author: CHRIS Ibanez Service: (none) Author Type: Geodesist Date of Service: 09/09/2017 4:59 PM Filed: 09/09/2017 5:01 PM Note Type: Progress Notes Status: Signed Priest: CHRIS Ibanez (Geodesist) LAURA following pt for discharge planning. LAURA met with pt's , Trinity Keys [phone], to offer support. SW familiar with pt [...] PM Note Type: Progress Notes Status: Signed Priest: RT Elda (Respiratory Therapist) 09/09/17 1642 RT/ Bronch Procedure $ Bedside Bronch Flexible Bronchoscopy Procedures [facility] Pre-Procedure Diagnosis Pre Procedure LOC: Sedated Procedure details Procedure start time: 1425 Scope in time: 1426 ETT Size: 8 Post Procedure Dx Scope Number: disposable Scope out time: 1450 Procedure ends: 1450 Report given to: RN Assisted with bedside bronchoscopy. [place] protocol checklist completed prior to procedure with [...] Martha on 09/09/2017 1:53 PM Author: RT aMrtha Service: (none) Author Type: Respiratory Therapist Date of Service: 09/09/2017 1:53 PM Filed: 09/09/2017 1:53 PM Note Type: Progress Notes Status: Signed Priest: RT Martha (Respiratory Therapist) Respiratory therapist assisted with PO/OT.Manage ventilator. * Provider, MD Claire - 09/09/2017 1:36 PM CDT Progress Notes Signed by MARTHA Enciso on 09/09/2017 3:00 PM Author: MARTHA Enciso Service: (none) Author Type: Occupational Therapist Date of Service: 09/09/2017 1:36 PM Filed: 09/09/2017 3:00 PM Note Type: Progress Notes Status: Signed Priest: MARTHA Enciso (Occupational Therapist) Occupational Therapy [facility] Physical Medicine and Rehabilitation Occupational Therapy Initial Evaluation Note Patient: José Miguel Keys [facility] Record Number: [id number] Date of : 1950 Age: 66 y.o. [...] Atrial fibrillation ??? CAD (coronary artery disease) DC 1981, last angiogram 2010 ??? Chronic atrial [...] came from [place]) Prior Function: Level of [place]: Needs assistance with ADLs;Needs assistance with homemaking;Needs [...] treatment : 20 minutes;with fair + endurance Manager Pacu Goal: Jail Goal: Patient to discharge to appropriate next [...] PM Note Type: Progress Notes Status: Signed Priest: Beata Shafer PT (Physical Therapist) Physical Therapy [facility] Physical Medicine and Rehabilitation Physical Therapy Initial Evaluation Note Co-tx with OT and RT Patient: José Miguel Keys Med Record Number: [id number] Date of : 1950 Age: 66 y.o. [...] Atrial fibrillation ??? CAD (coronary artery disease) DC 1981, last angiogram 2010 ??? Chronic atrial [...] of Home: Facility Prior Function: Level of [place]: Needs assistance with functional transfers Receives Help [...] Sit Edge of Bed: With minimal assist Manager Pacu Goal(s): Jail Goal: Patient to discharge to appropriate next [...] PT on 09/09/2017 8:00 AM Author: Beata Shafre PT Service: (none) Author Type: Physical Therapist Date of Service: 09/09/2017 8:00 AM Filed: 09/09/2017 8:00 AM Note Type: Progress Notes Status: Signed Priest: Beata Shafer PT (Physical Therapist) Physical Therapy [facility] Department of Physical Medicine & Rehabilitation [...] Beata Shafer, PT 09/09/2017 8:00 AM * Viat Troncoso MD - 09/09/2017 7:39 AM CDT Progress Notes Signed by Vita Troncoso MD on 09/09/2017 4:53 PM Author: Vita Troncoso MD Service: Emergency Author Type: Resident Date of Service: 09/09/2017 7:39 AM Filed: 09/09/2017 4:53 PM Note Type: Progress Notes Status: Attested Priest: Vita Troncoso MD (Resident) Cosigner: Jason Nash [...] 09/06/2017 ABG: Lab Results Component Value Date BLB5DCD 45 09/09/2017 PO2ART 65 (L) 09/09/2017 QEJ0LGR 27.4 (H) 09/09/2017 Radiology: CXR this morning [...] MD 09/09/2017 7:39 AM * Delphine Waddell, CHOIRMASTER-GLUELINE WORKER - 09/09/2017 4:16 AM CDT Progress Notes Signed by Delphine Waddell NP on 09/09/2017 4:23 AM Author: Delphine Waddell NP Service: Medical ICU Author Type: Nurse Practitioner Date of Service: 09/09/2017 4:16 AM Filed: 09/09/2017 4:23 AM Note Type: Progress Notes Status: Signed Priest: Delphine Waddell NP (Nurse Practitioner) Called by [...] Delphine Waddell NP Critical Care, MICU3 Ext [phone] * ProviderClaire MD - 09/08/2017 8:05 AM CDT Progress Notes Signed by MARTHA Newton on 09/08/2017 8:06 AM Author: MARTHA Newton Service: Physical Medicine and Rehabilitation Author Type: Occupational Therapist Date of Service: 09/08/2017 8:05 AM Filed: 09/08/2017 8:06 AM Note Type: Progress Notes Status: Signed Priest: MARTHA Newton (Occupational Therapist) Occupational Therapy [facility] Department of Physical Medicine & Rehabilitation [...] PM Note Type: Progress Notes Status: Attested Priest: Vita Troncoso MD (Resident) Cosigner: Jason Nash [...] care with the patient and family members. Jsaon Nash MD 09/08/2017 MEDICAL INTENSIVE CARE UNIT [...] 09/06/2017 ABG: Lab Results Component Value Date FKF6FAH 47 (H) 09/06/2017 PO2ART 169 (H) 09/06/2017 UWR5EUL 27.0 (H) 09/06/2017 Radiology: CXR this morning [...] AM Note Type: Progress Notes Status: Signed Priest: Kim Joshua RN (Registered Nurse) [phone] Patient states he is SOB and feels [...] PM Note Type: Progress Notes Status: Attested Priest: Vita Troncoso MD (Resident) Related Notes: Original [...] 09/06/2017 ABG: Lab Results Component Value Date ITN1DPG 47 (H) 09/06/2017 PO2ART 169 (H) 09/06/2017 XFW9HSV 27.0 (H) 09/06/2017 Radiology: CXR this morning [...] Ирина Barrientos RD Service: (none) Author Type: Patent Attorney Date of Service: 09/07/2017 7:27 AM Filed: 09/07/2017 8:29 AM Note Type: Progress Notes Status: Signed Priest: Ирина Barrientos RD (Patent Attorney) Medical Nutrition Therapy Evaluation Nutrition Recommendations: Alter/change [...] 3.6 oz (113.5 kg) Estimated Needs: Calories: 8868-4997 kcals ([facility] 2010) vent/obese Protein: 135-165 g (1.8-2.2g/kg) [...] AM Note Type: Progress Notes Status: Signed Priest: Jay Lemon RN (Registered Nurse) At 0500, [...] AM Note Type: Progress Notes Status: Signed Priest: RT Niurka (Respiratory Therapist) Patient is excluded [...] AM Note Type: Progress Notes Status: Signed Priest: Jay Lemon RN (Registered Nurse) Notified BELLA [...] PM Note Type: Progress Notes Status: Signed Priest: Jason Nash MD (Physician) ICU progress Note: [...] PM Note Type: Progress Notes Status: Signed Priest: RT Song (Respiratory Therapist) 09/06/17 1500 RT/ [...] given to: RN Assisted with bedside bronchoscopy. [place] protocol checklist completed prior to procedure with [...] Author: CHRIS Littlejohn Service: (none) Author Type: Geodesist Date of Service: 09/06/2017 12:03 PM Filed: 09/06/2017 12:06 PM Note Type: Progress Notes Status: Signed Priest: CHRIS Littlejohn (Geodesist) READMISSION NOTE: ?? Pt readmitted to [facility] within 30 days. Pt transferred from [facility] to [facility]. Below assessment was completed with [...] was completed with pt's , Francia Keys [phone], at bedside. ? Admitting Diagnosis: Sepsis ? Pt readmitted with in 30 days: No ?Primary Care Doctor: Dr. Mau Medeiros [phone], last saw this physician three months ago. ? Prior Ability to perform ADL???s: Independent ? Anticipated Changes in performance of ADLS: PT/OT recommending SNF placement. Pt and are agreeable to recommendations and would like referrals submitted to [facility] [place]. SW to submit referrals. ? Communication of Needs:??Thai, self, A&Ox4? Medication Management: Uses [facility] in [place] ([phone]) ? Current Living Situation: Pt lives with his in their multi level home. There are 14 steps witha railing on one side to enter the home. ? Current Support System:??Francia Keys () [phone] ? Power of Data Warehouse Developer or Guardian: No ? Financial: Retired, insured through Medicare and [employer] ? Transportation: Will have a ride home [...] Other Healthcare Applications Active with Medicare and [employer] Substance Abuse Assessment and Treatment plan N/A Social Work referral for skilled placement needs Referrals submitted to [facility] and [place] Other: Pt is a ? Case Management [...] Best??address and??telephone # for Patient: ? [address] [place] [address] ? Insurance and demographics verified with patient. [...] bolus 2 g Intravenous Once Delphine Waddell APRN-GLUELINE WORKER ??? ceFAZolin (ANCEF) syringe 2,000 mg 2 [...] mg Enteral Tube BID Delphine Waddell APRN- GLUELINE WORKER 8.6 mg at 09/14/17 2044 ??? polyethylene glycol 3350 (MIRALAX) packet 17 g 17 g Enteral Tube QDAY PRN Delphine Waddell APRN-GLUELINE WORKER 17 g at 09/11/17 0842 ??? docusate sodium (COLACE) solution 100 mg 100 mg Enteral Tube QDAY Delphine Waddell CHOIRMASTER-GLUELINE WORKER 100mg at 09/14/17 0841 ??? lidocaine (LIDODERM) 5 % patch 1 patch 1 patch Transdermal QDAY Delphine Waddell APRN-GLUELINE WORKER 1 patch at 09/14/17 0840 ??? albuterol [...] Pain assessment: None Sedation Assessment & Plan: [place] [employer] Anesthesiologists Classification (PRE-PROCEDURE): ASA 3 [...] 5:06 PM Note Type: H&P Status: Attested Priest: Vita Troncoso MD (Resident) Cosigner: Jason Nash [...] osteomyelitis of L1/L2 and DVT Transferred from [facility] facility for hypoxia. Patient with recent [...] Atrial fibrillation ??? CAD (coronary artery disease) DC 1981, last angiogram 2010 ??? Chronic atrial [...] area twice daily as needed ??? ergocalciferol 56335 UNITS Cap Take 50,000 Units by mouth [...] DAY NEEDED 0 ??? Vitamin D, Ergocalciferol, 35203 UNITS Cap Take 1 capsule by mouth [...] Recent Labs 09/06/17 1211 PO2ART 152 H PXV4FWI 55 H XDM8GUM 25.0 Urine Studies: Lab Results Component Value [...] 2:54 PM Note Type: Procedures Status: Attested Priest: Veronica Costello MD (Resident) Related Notes: Original [...] 4:14 AM Note Type: Procedures Status: Signed Priest: Ivonne Rubin MD (Resident) Cosigner: Jason Nash [...] 5:08 PM Note Type: Procedures Status: Attested Priest: Veronica Costello MD (Resident) Cosigner: Jason Nash MD at 09/08/2017 9:56 PM Procedures: 1. CHEST TUBE INSERTION [[id number] (Custom)] Attestation signed by Jason Nash MD [...] over the guidewire and removed. A 14 Uzbek tube was placed in the left lateral [...] of Pulmonary, Critical Care, & Sleep Medicine [facility] Pager: [phone] * Veronica Costello MD - 09/06/2017 2:10 PM CDT Procedures Signed by Veronica Costello MD on 09/06/2017 5:11 PM Author: Veronica Costello MD Service: Pulmonary Critical Care Author Type: Resident Date of Service: 09/06/2017 2:10 PM Filed: 09/06/2017 5:11 PM Note Type: Procedures Status: Attested Priest: Veronica Costello MD (Resident) Related Notes: Original [...] of L1/L2 who has been staying at [facility] completing IV antibx for prior bacteremia [...] by mouth DAILY. Disp: Rfl: ergocalciferol (DRISDOL) 73612 UNITS capsule Take 50,000 Units by mouth [...] Disp: Rfl: 0 vitamin D, ergocalciferol, (DRISDOL) 89968 UNITS capsule Take 1 capsule by mouth [...] concerns. Vira Wilson MD Gastroenterology Fellow Pager: [phone] Associated attestation - Elizabeth Lee MD - 09/14/2017 8:07 PM CDT [facility] GI Attending José Miguel Keys is a 66 y.o. male who was seen and examined with the GI fellow 09/14/2017. I agree with their note attached. In addition, I note patient with complex recent medical illness, including hypoxic respiratory failure. Status post trach and in need of termite control representative nutrition for rehab as he is unable [...] Feeding difficulties in adult with need for fdc nutrition. 2. Daily ASA 3. On ceftaroline [...] 4:42 PM Note Type: Consults Status: Attested Priest: Vibha Benites MD (Resident) Cosigner: Elisabet Jones [...] Atrial fibrillation ??? CAD (coronary artery disease) DC 1981, last angiogram 2010 ??? Chronic atrial [...] 200 mg Feeding Tube BID Rebecca Melendez CONSTRUCTION ELECTRICIAN 200 mg at 09/07/17 0840 Allergies: Allergies [...] encounter OR Notes * Operative - Castaneda, Moies Joseph MD - 09/13/2017 6:43 PM CDT José Miguel Keys 1950 [id number] Date of Procedure: 09/13/2017 Pre-Op Diagnosis: Ventilator dependency; Prolonged endotracheal intubation Post-Op Diagnosis: Same Procedure: Tracheostomy w/ skin fenestration, CPT code 86695 Surgeon: Duke Castaneda MD Resident: Leslye Wood [...] tested for defects and nonewere found. The construction project engineer withdrew the endotracheal tube under direct [...] Note Type: ED Provider Notes Status: Signed Priest: Bandar Mansfield MD (Physician) [facility] eMERGENCY dEPARTMENT eNCOUnter ATTENDING PHYSICIAN NOTE HISTORICAL INFORMATION Primary Care Doctor: Mau Medeiros Patient information was obtained primarily from the patient, nursing notes, records History/Exam limitations: clinical condition. Time of evaluation: 11:21AM CHIEF COMPLAINT Shortness of Breath HPI José Miguel Keys is a 66 y.o. male with a past medical history of DM, asthma, A- fib, HTN, COPD, and DC who arrived to the ED via EMS at 11:21AM for severe repiratory distress. Patient was placed on CPAP per EMS en route, satting at 75%. HPI limited and obtained per EMS 2/2 acuity of medical condition. PAST MEDICAL HISTORY Past Medical History: Diagnosis Date ??? PAYTON (acute kidney injury) ??? Asthma ??? Atrial fibrillation ??? CAD (coronary artery disease) DC 1981, last angiogram 2010 ??? Chronic atrial [...] the esophagus and tips are off the [id number]. There is a moderate left pleural effusion, intervally decreased. There is a small right pleural effusion, unchanged. There are bilateral interstitial and airspace opacities likely representing pulmonary edema or pneumonia. No pneumothorax is identified. The cardiac silhouette is partly obscured. Report dictated by Rohan Hopkins M.D. (vice president of development). I, Dr. 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 Glucose WB/POC 181(H) 70 - 115 mg/dL 09/19/2017 2:59 AM CDT [facility] Blood BLOOD SPECIMEN / Unknown 09/19/2017 2:45 AM CDT 09/19/2017 2:59 AM CDT Narrative [facility] - 09/19/2017 2:59 AM CDT Last Turner: GONZALEZ ??LACINDA Jason Nash MD LAB - POINT OF CARE ORDERABLES [address] [phone] * (ABNORMAL) RBC MORPHOLOGY (09/19/2017 2:43 AM CDT) Platelet Estimate Adequate Adequate 09/19/2017 5:26 AM CDT [facility] Anisocytosis 1+(A) None 09/19/2017 5:26 AM CDT [facility] Microcytes Few(A) None 09/19/2017 5:26 AM CDT [facility] Macrocytosis 1+(A) None 09/19/2017 5:26 AM CDT [facility] Hypochromia 1+(A) None 09/19/2017 5:26 AM CDT [facility] Schistocytes Occasional(A ) None 09/19/2017 5:26 AM CDT [facility] Ovalocytes 1+(A) None 09/19/2017 5:26 AM CDT [facility] Blood BLOOD SPECIMEN / Unknown Venipuncture / Unknown 09/19/2017 2:43 AM CDT 09/19/2017 3:39 AM CDT Rebecca Melendez CHOIRMASTER-GLUELINE WORKER LAB - HEMATOLOGY ORDERABLES Performing Organization Address City/[facility]/ZIP Co de Phone Number [address] [phone] * MAGNESIUM BLOOD (09/19/2017 2:43 AM CDT) Pathologist [facility] Magnesium 1.7 1.6 - 2.6 mg/dL 09/19/2017 4:19 AM CDT [facility] Blood BLOOD SPECIMEN / Unknown Venipuncture / Unknown 09/19/2017 2:43 AM CDT 09/19/2017 3:39 AM CDT Rebecca Melendez CHOIRMASTER-GLUELINE WORKER LAB - CHEMISTRY O RDERABLES [address] [phone] * (ABNORMAL) CBC W AUTO DIFFERENTIAL (09/19/2017 2:43 AM CDT) WBC 8.5 3.5 - 10.5 10? 3 /uL 09/19/2017 4:25 AM [facility] RBC 2.85(L) 4.30 - 5.70 10? 6 /uL 09/19/2017 4:25 AM [facility] Hemoglobin 8.1(L) 13.5 - 17.5 g/dL 09/19/2017 4:25 AM [facility] Hematocrit 28.0(L) 39.0 - 50.0 % 09/19/2017 4:25 AM [facility] MCV 98.2(H) 81.0 - 97.0 fL 09/19/2017 4:25 AM [facility] MCH 28.4 28.0 - 34.0 pg 09/19/2017 4:25 AM [facility] MCHC 28.9(L) 32.0 - 36.0 g/dL 09/19/2017 4:25 AM [facility] Platelet Count 208 150 - 400 10? 3 /uL 09/19/2017 4:25 AM [facility] RDW-SD 76.4(H) 36.0 - 50.0 fL 09/19/2017 4:25 AM [facility] RDW-CV 21.3(H) 11.2 - 14.8 % 09/19/2017 4:25 AM [facility] MPV 13.4(H) 9.3 - 12.8 fL 09/19/2017 4:25 AM [facility] Neutrophils % 79.2(H) 35.0 - 70.0 % 09/19/2017 4:25 AM [facility] Lymphocytes % 9.5(L) 19.7 - 55.1 % 09/19/2017 4:25 AM [facility] Monocytes % 6.7 3.0 - 15.0 % 09/19/2017 4:25 AM [facility] Eosinophils % 4.4 0.0 - 6.0 % 09/19/2017 4:25 AM [facility] Basophil % 0.2 0.0 - 1.5 % 09/19/2017 4:25 AM [facility] Neutrophils Absolute 6.8 1.6 - 7.0 10? 3 /uL 09/19/2017 4:25 AM [facility] Lymphocyte Absolute 0.8 0.8 - 2.9 10? 3 /uL 09/19/2017 4:25 AM [facility] Monocytes Absolute 0.57 0.14 - 0.66 10? 3 /uL 09/19/2017 4:25 AM [facility] Eosinophils Absolute 0.38(H) 0.00 - 0.22 10? 3 /uL 09/19/2017 4:25 AM [facility] Basophils Absolute 0.02 0.00 - 0.06 10? 3 /uL 09/19/2017 4:25 AM [facility] Reflex Status Morphology review to follow. 09/19/2017 4:25 AM [facility] Immature Granulocytes % 0.5 0.0 - 1.0 % 09/19/2017 4:25 AM [facility] Blood BLOOD SPECIMEN / Unknown Venipuncture / Unknown 09/19/2017 2:43 AM CDT 09/19/2017 3:39 AM CDT Rebecca Melendez CHOIRMASTER-GLUELINE WORKER LAB - HEMATOLOGY ORDERABLES Performing Organization Address City/State/[facility] Co de Phone Number [address] [phone] * (ABNORMAL) BASIC METABOLIC PANEL (CALCIUM TOTAL) (09/19/2017 2:43 AM CDT) BUN 26 7 - 26 mg/dL 09/19/2017 4:19 AM [facility] Creatinine 0.6 0.6 - 1.2 mg/dL 09/19/2017 4:19 AM [facility] Sodium 138 136 - 145 mmol/L 09/19/2017 4:19 AM [facility] Potassium 4.9(H) 3.5 - 4.5 mmol/L 09/19/2017 4:19 AM [facility] Chloride 98 98 - 107 mmol/L 09/19/2017 4:19 AM [facility] CO2 34(H) 22 - 29 mmol/L 09/19/2017 4:19 AM [facility] Glucose 153(H) 70 - 115 mg/dL 09/19/2017 4:19 AM [facility] Calcium 9.1 8.4 - 10.2 mg/dL 09/19/2017 4:19 AM [facility] Anion Gap 11 8 - 18 09/19/2017 4:19 AM [facility] BUN/Creatinine Ratio 43(H) 7 - 23 09/19/2017 4:19 AM [facility] Osmolality Calculated 294 270 - 300 mOsm/kg 09/19/2017 4:19 AM [facility] eGFR >60 >60 mL/min/1.7 3 m2 09/19/2017 4:19 AM [facility] Blood BLOOD SPECIMEN / Unknown Venipuncture / Unknown 09/19/2017 2:43 AM CDT 09/19/2017 3:39 AM CDT Rebecca Melendez CHOIRMASTER-GLUELINE WORKER LAB - CHEMISTRY O RDERABLES [address] [phone] * PHOSPHORUS BLOOD (09/19/2017 2:43 AM CDT) Phosphorus 2.5 2.3 - 4.7 mg/dL 09/19/2017 4:19 AM [facility] Blood BLOOD SPECIMEN / Unknown Venipuncture / Unknown 09/19/2017 2:43 AM CDT 09/19/2017 3:39 AM CDT Rebecca Maxwell Shinto CHOIRMASTER-GLUELINE WORKER LAB - CHEMISTRY O RDERABLES [address] [phone] * (ABNORMAL) GLUCOSE - POINT OF CARE (09/18/2017 4:50 PM CDT) Glucose WB/POC 140(H) 70 - 115 mg/dL 09/18/2017 5:04 PM [facility] Blood BLOOD SPECIMEN / Unknown 09/18/2017 4:50 PM CDT 09/18/2017 5:04 PM CDT Narrative [facility] - 09/18/2017 5:04 PM CDT Last Turner: SMITH ??NOA Jason Nash MD LAB - POINT OF CARE ORDERABLES [facility] [address] [phone] * XR CHEST 1VW PORTABLE (09/18/2017 2:45 [...] - 115 mg/dL 09/18/2017 1:13 PM CDT [facility] Blood BLOOD SPECIMEN / Unknown 09/18/2017 1:00 PM CDT 09/18/2017 1:13 PM CDT Narrative [facility] - 09/18/2017 1:13 PM CDT Last Turner: SMITH ??NOA Jason Nash MD LAB - POINT OF CARE ORDERABLES [address] [phone] * MAGNESIUM BLOOD (09/18/2017 11:04 AM CDT) Magnesium 2.6 1.6 - 2.6 mg/dL 09/18/2017 11:39 AM CDT [facility] Blood BLOOD SPECIMEN / Unknown Venipuncture / Unknown 09/18/2017 11:04 AM CDT 09/18/2017 11:06 AM CDT Jason Nash MD LAB - CHEMISTRY ORDMarj KLINE Performing Organization Address City/[facility]/ZIP Co de Phone Number [address] [phone] * PHOSPHORUS BLOOD (09/18/2017 12:03 AM CDT) Phosphorus 2.8 2.3 - 4.7 mg/dL 09/18/2017 12:48 AM CDT [facility] Blood BLOOD SPECIMEN / Unknown Lab Venipuncture / Unknown 09/18/2017 12:03 AM CDT 09/18/2017 12:03 AM CDT Rebecca Melendez APRN-GLUELINE WORKER LAB - [place] [address], [place] [phone] * MAGNESIUM BLOOD (09/18/2017 12:03 AM CDT) Pathologist [facility] Magnesium 2.0 1.6 - 2.6 mg/dL 09/18/2017 12:48 AM [facility] Blood BLOOD SPECIMEN / Unknown Lab Venipuncture / Unknown 09/18/2017 12:03 AM CDT 09/18/2017 12:03 AM CDT Rebecca Alissa Melendez CHOIRMASTER-GLUELINE WORKER LAB - CHEMISTRY O RDERABLES [facility] [address] [phone] * (ABNORMAL) CBC W AUTO DIFFERENTIAL (09/18/2017 12:03 AM CDT) Pathologist [facility] WBC 8.7 3.5 - 10.5 10? 3 /uL 09/18/2017 12:31 AM [facility] RBC 3.09(L) 4.30 - 5.70 10? 6 /uL 09/18/2017 12:31 AM [facility] Hemoglobin 8.8(L) 13.5 - 17.5 g/dL 09/18/2017 12:31 AM [facility] Hematocrit 29.6(L) 39.0 - 50.0 % 09/18/2017 12:31 AM [facility] MCV 95.8 81.0 - 97.0 fL 09/18/2017 12:31 AM [facility] MCH 28.5 28.0 - 34.0 pg 09/18/2017 12:31 AM [facility] MCHC 29.7(L) 32.0 - 36.0 g/dL 09/18/2017 12:31 AM [facility] Platelet Count 199 150 - 400 10? 3 /uL 09/18/2017 12:31 AM [facility] RDW-SD 76.1(H) 36.0 - 50.0 fL 09/18/2017 12:31 AM [facility] RDW-CV 21.4(H) 11.2 - 14.8 % 09/18/2017 12:31 AM [facility] MPV 13.3(H) 9.3 - 12.8 fL 09/18/2017 12:31 AM [facility] Neutrophils % 79.2(H) 35.0 - 70.0 % 09/18/2017 12:31 AM [facility] Lymphocytes % 10.1(L) 19.7 - 55.1 % 09/18/2017 12:31 AM [facility] Monocytes % 7.4 3.0 - 15.0 % 09/18/2017 12:31 AM [facility] Eosinophils % 3.1 0.0 - 6.0 % 09/18/2017 12:31 AM [facility] Basophil % 0.2 0.0 - 1.5 % 09/18/2017 12:31 AM [facility] Neutrophils Absolute 6.9 1.6 - 7.0 10? 3 /uL 09/18/2017 12:31 AM [facility] Lymphocyte Absolute 0.9 0.8 - 2.9 10? 3 /uL 09/18/2017 12:31 AM [facility] Monocytes Absolute 0.64 0.14 - 0.66 10? 3 /uL 09/18/2017 12:31 AM [facility] Eosinophils Absolute 0.27(H) 0.00 - 0.22 10? 3 /uL 09/18/2017 12:31 AM [facility] Basophils Absolute 0.02 0.00 - 0.06 10? 3 /uL 09/18/2017 12:31 AM [facility] Immature Granulocytes % 0.3 0.0 - 1.0 % 09/18/2017 12:31 AM [facility] Blood BLOOD SPECIMEN / Unknown Lab Venipuncture / Unknown 09/18/2017 12:03 AM T 09/18/2017 12:03 AM [facility] Rebecca Melendez CHOIRMASTER-GLUELINE WORKER LAB - HEMATOLOGY ORDERABLES [facility] [address] [phone] * (ABNORMAL) BASIC METABOLIC PANEL (CALCIUM TOTAL) (09/18/2017 12:03 AM CDT) BUN 25 7 - 26 mg/dL 09/18/2017 12:48 AM [facility] Creatinine 0.6 0.6 - 1.2 mg/dL 09/18/2017 12:48 AM [facility] Sodium 140 136 - 145 mmol/L 09/18/2017 12:48 AM [facility] Potassium 3.4(L) 3.5 - 4.5 mmol/L 09/18/2017 12:48 AM [facility] Chloride 95(L) 98 - 107 mmol/L 09/18/2017 12:48 AM [facility] CO2 35(H) 22 - 29 mmol/L 09/18/2017 12:48 AM [facility] Glucose 135(H) 70 - 115 mg/dL 09/18/2017 12:48 AM [facility] Calcium 9.0 8.4 - 10.2 mg/dL 09/18/2017 12:48 AM [facility] Anion Gap 13 8 - 18 09/18/2017 12:48 AM [facility] BUN/Creatinine Ratio 42(H) 7 - 23 09/18/2017 12:48 AM [facility] Osmolality Calculated 296 270 - 300 mOsm/kg 09/18/2017 12:48 AM [facility] eGFR >60 >60 mL/min/1.7 3 m2 09/18/2017 12:48 AM [facility] Blood BLOOD SPECIMEN / Unknown Lab Venipuncture / Unknown 09/18/2017 12:03 AM CDT 09/18/2017 12:03 AM CDT Rebecca Melendez CHOIRMASTER-GLUELINE WORKER LAB - CHEMISTRY O RDERABLES [address] [phone] * (ABNORMAL) GLUCOSE - POINT OF CARE (09/17/2017 7:18 PM CDT) Glucose WB/POC 157(H) 70 - 115 mg/dL 09/17/2017 7:31 PM CDT [facility] Blood BLOOD SPECIMEN / Unknown 09/17/2017 7:18 PM CDT 09/17/2017 7:31 PM CDT Narrative [facility] - 09/17/2017 7:31 PM CDT Last Turner: SLACK ??QUE Jason Nash MD LAB - POINT OF CARE ORDERABLES Performing Organization Address City/[facility]/ZIP Co de Phone Number [address] [phone] * (ABNORMAL) GLUCOSE - POINT OF CARE (09/17/2017 12:04 PM CDT) Glucose WB/POC 164(H) 70 - 115 mg/dL 09/17/2017 12:24 PM CDT [facility] Blood BLOOD SPECIMEN / Unknown 09/17/2017 12:04 PM CDT 09/17/2017 12:23 PM CDT Narrative [facility] - 09/17/2017 12:24 PM CDT Last Turner: SLACK ??QUE Jason Nash MD LAB - POINT OF CARE ORDERABLES Performing Organization Address [facility]/ZIP Co de Phone Number [address] [phone] * (ABNORMAL) RBC MORPHOLOGY (09/17/2017 4:33 AM CDT) Platelet Estimate Adequate Adequate 09/17/2017 5:55 AM CDT [facility] Microcytes 1+(A) None 09/17/2017 5:55 AM CDT [facility] Hypochromia 1+(A) None 09/17/2017 5:55 AM CDT [facility] Ovalocytes 1+(A) None 09/17/2017 5:55 AM CDT [facility] Blood BLOOD SPECIMEN / Unknown Venipuncture / Unknown 09/17/2017 4:33 AM CDT 09/17/2017 4:42 AM CDT Rebecca Melendez CHOIRMASTER-GLUELINE WORKER LAB - HEMATOLOGY ORDERABLES [address] [phone] * MAGNESIUM BLOOD (09/17/2017 4:33 AM CDT) [facility] Magnesium 1.9 1.6 - 2.6 mg/dL 09/17/2017 5:16 AM [facility] Blood BLOOD SPECIMEN / Unknown Venipuncture / Unknown 09/17/2017 4:33 AM CDT 09/17/2017 4:42 AM CDT Rebecca Melendez CHOIRMASTER-GLUELINE WORKER LAB - CHEMISTRY O RDERABLES [address] [phone] * (ABNORMAL) CBC W AUTO DIFFERENTIAL (09/17/2017 4:33 AM CDT) [facility] WBC 8.1 3.5 - 10.5 10? 3 /uL 09/17/2017 5:05 AM [facility] RBC 3.04(L) 4.30 - 5.70 10? 6 /uL 09/17/2017 5:05 AM [facility] Hemoglobin 8.7(L) 13.5 - 17.5 g/dL 09/17/2017 5:05 AM [facility] Hematocrit 29.2(L) 39.0 - 50.0 % 09/17/2017 5:05 AM [facility] MCV 96.1 81.0 - 97.0 fL 09/17/2017 5:05 AM [facility] MCH 28.6 28.0 - 34.0 pg 09/17/2017 5:05 AM [facility] MCHC 29.8(L) 32.0 - 36.0 g/dL 09/17/2017 5:05 AM [facility] Platelet Count 182 150 - 400 10? 3 /uL 09/17/2017 5:05 AM [facility] RDW-SD 76.7(H) 36.0 - 50.0 fL 09/17/2017 5:05 AM [facility] RDW-CV 21.9(H) 11.2 - 14.8 % 09/17/2017 5:05 AM [facility] MPV 13.6(H) 9.3 - 12.8 fL 09/17/2017 5:05 AM [facility] Neutrophils % 78.7(H) 35.0 - 70.0 % 09/17/2017 5:05 AM [facility] Lymphocytes % 10.7(L) 19.7 - 55.1 % 09/17/2017 5:05 AM [facility] Monocytes % 8.0 3.0 - 15.0 % 09/17/2017 5:05 AM [facility] Eosinophils % 2.1 0.0 - 6.0 % 09/17/2017 5:05 AM [facility] Basophil % 0.5 0.0 - 1.5 % 09/17/2017 5:05 AM [facility] Neutrophils Absolute 6.4 1.6 - 7.0 10? 3 /uL 09/17/2017 5:05 AM [facility] Lymphocyte Absolute 0.9 0.8 - 2.9 10? 3 /uL 09/17/2017 5:05 AM [facility] Monocytes Absolute 0.65 0.14 - 0.66 10? 3 /uL 09/17/2017 5:05 AM [facility] Eosinophils Absolute 0.17 0.00 - 0.22 10? 3 /uL 09/17/2017 5:05 AM [facility] Basophils Absolute 0.04 0.00 - 0.06 10? 3 /uL 09/17/2017 5:05 AM [facility] Immature Granulocytes % 0.5 0.0 - 1.0 % 09/17/2017 5:05 AM [facility] Blood BLOOD SPECIMEN / Unknown Venipuncture / Unknown 09/17/2017 4:33 AM CDT 09/17/2017 4:42 AM [facility] Rebecca Melendez CHOIRMASTER-GLUELINE WORKER LAB - HEMATOLOGY ORDERABLES [facility] [address] [phone] * (ABNORMAL) BASIC METABOLIC PANEL (CALCIUM TOTAL) (09/17/2017 4:33 AM CDT) Pathologist [facility] BUN 19 7 - 26 mg/dL 09/17/2017 5:16 AM [facility] Creatinine 0.6 0.6 - 1.2 mg/dL 09/17/2017 5:16 AM [facility] Sodium 139 136 - 145 mmol/L 09/17/2017 5:16 AM [facility] Potassium 3.6 3.5 - 4.5 mmol/L 09/17/2017 5:16 AM [facility] Chloride 96(L) 98 - 107 mmol/L 09/17/2017 5:16 AM [facility] CO2 32(H) 22 - 29 mmol/L 09/17/2017 5:16 AM [facility] Glucose 120(H) 70 - 115 mg/dL 09/17/2017 5:16 AM [facility] Calcium 8.8 8.4 - 10.2 mg/dL 09/17/2017 5:16 AM [facility] Anion Gap 15 8 - 18 09/17/2017 5:16 AM [facility] BUN/Creatinine Ratio 32(H) 7 - 23 09/17/2017 5:16 AM [facility] Osmolality Calculated 291 270 - 300 mOsm/kg 09/17/2017 5:16 AM [facility] eGFR >60 >60 mL/min/1.7 3 m2 09/17/2017 5:16 AM [facility] Blood BLOOD SPECIMEN / Unknown Venipuncture / Unknown 09/17/2017 4:33 AM CDT 09/17/2017 4:42 AM CDT Rebecca Melendez APRN-GLUELINE WORKER LAB - CHEMISTRY O RDERABLES [address] [phone] * PHOSPHORUS BLOOD (09/17/2017 4:33 AM CDT) [facility] Phosphorus 3.2 2.3 - 4.7 mg/dL 09/17/2017 5:16 AM CDT [facility] Blood BLOOD SPECIMEN / Unknown Venipuncture / Unknown 09/17/2017 4:33 AM CDT 09/17/2017 4:42 AM CDT Rebecca Alissa Shinto CHOIRMASTER-GLUELINE WORKER LAB - [place] [address], [facility] [phone] * GLUCOSE - POINT OF CARE (09/16/2017 11:18 PM CDT) Glucose WB/POC 111 70 - 115 mg/dL 09/16/2017 11:32 PM CDT [facility] Blood BLOOD SPECIMEN / Unknown 09/16/2017 11:18 PM CDT 09/16/2017 11:32 PM CDT [facility] - 09/16/2017 11:32 PM CDT Last Turner: AMY ??CHRISTIANO Jason Nash MD LAB - POINT OF CARE ORDERABLES Performing Organization Address City/[facility]/[place] [address], [facility] [phone] * GLUCOSE - POINT OF CARE (09/16/2017 6:41 PM CDT) Glucose WB/POC 98 70 - 115 mg/dL 09/16/2017 6:55 PM CDT [facility] Blood BLOOD SPECIMEN / Unknown 09/16/2017 6:41 PM CDT 09/16/2017 6:55 PM CDT Narrative [facility] - 09/16/2017 6:55 PM CDT Last Turner: SG ??JOSE L Jason Nash MD LAB - POINT [place] [address], [facility] [phone] * GLUCOSE - POINT OF CARE (09/16/2017 12:22 PM CDT) Glucose WB/POC 91 70 - 115 mg/dL 09/16/2017 12:35 PM CDT [facility] Blood BLOOD SPECIMEN / Unknown 09/16/2017 12:22 PM CDT 09/16/2017 12:35 PM CDT Narrative [facility] - 09/16/2017 12:35 PM CDT Last Turner: CHELA ??GLADYS Jason Nash MD LAB - POINT OF CARE ORDERABLES [address] [phone] * GLUCOSE - POINT OF CARE (09/16/2017 5:56 AM CDT) [facility] Glucose WB/POC 79 70 - 115 mg/dL 09/16/2017 6:10 AM CDT [facility] Blood BLOOD SPECIMEN / Unknown 09/16/2017 5:56 AM CDT 09/16/2017 6:10 AM CDT Narrative [facility] - 09/16/2017 6:10 AM CDT Last Turner: LYUBOV ?MARCOS Jason Nash MD LAB - POINT OF CARE ORDERABLES Performing Organization Address City/[facility]/ZIP Co de Phone Number [address] [phone] * (ABNORMAL) RBC MORPHOLOGY (09/16/2017 4:13 AM CDT) [facility] Platelet Estimate Adequate Adequate 09/16/2017 5:12 AM CDT [facility] Anisocytosis 1+(A) None 09/16/2017 5:12 AM CDT [facility] Hypochromia 1+(A) None 09/16/2017 5:12 AM CDT [facility] Blood BLOOD SPECIMEN / Unknown Venipuncture / Unknown 09/16/2017 4:13 AM CDT 09/16/2017 4:18 AM CDT Veronica Costello MD LAB - HEMATOLOGY ORD ERABLES [facility] [address] [phone] * (ABNORMAL) CBC W AUTO DIFFERENTIAL (09/16/2017 4:13 AM T) WBC 8.5 3.5 - 10.5 10? 3 /uL 09/16/2017 4:25 AM [facility] RBC 2.87(L) 4.30 - 5.70 10? 6 /uL 09/16/2017 4:25 AM [facility] Hemoglobin 8.1(L) 13.5 - 17.5 g/dL 09/16/2017 4:25 AM [facility] Hematocrit 27.6(L) 39.0 - 50.0 % 09/16/2017 4:25 AM [facility] MCV 96.2 81.0 - 97.0 fL 09/16/2017 4:25 AM [facility] MCH 28.2 28.0 - 34.0 pg 09/16/2017 4:25 AM [facility] MCHC 29.3(L) 32.0 - 36.0 g/dL 09/16/2017 4:25 AM [facility] Platelet Count 172 150 - 400 10? 3 /uL 09/16/2017 4:25 AM [facility] RDW-SD 76.1(H) 36.0 - 50.0 fL 09/16/2017 4:25 AM [facility] RDW-CV 22.0(H) 11.2 - 14.8 % 09/16/2017 4:25 AM [facility] MPV 12.8 9.3 - 12.8 fL 09/16/2017 4:25 AM [facility] Neutrophils % 80.7(H) 35.0 - 70.0 % 09/16/2017 4:25 AM [facility] Lymphocytes % 9.9(L) 19.7 - 55.1 % 09/16/2017 4:25 AM [facility] Monocytes % 7.0 3.0 - 15.0 % 09/16/2017 4:25 AM [facility] Eosinophils % 2.2 0.0 - 6.0 % 09/16/2017 4:25 AM CDT [facility] Basophil % 0.2 0.0 - 1.5 % 09/16/2017 4:25 AM T [facility] Neutrophils Absolute 6.8 1.6 - 7.0 10? 3 /uL 09/16/2017 4:25 AM T [facility] Lymphocyte Absolute 0.8 0.8 - 2.9 10? 3 /uL 09/16/2017 4:25 AM T [facility] Monocytes Absolute 0.59 0.14 - 0.66 10? 3 /uL 09/16/2017 4:25 AM T [facility] Eosinophils Absolute 0.19 0.00 - 0.22 10? 3 /uL 09/16/2017 4:25 AM T [facility] Basophils Absolute 0.02 0.00 - 0.06 10? 3 /uL 09/16/2017 4:25 AM [facility] Immature Granulocytes % 0.7 0.0 - 1.0 % 09/16/2017 4:25 AM T [facility] Blood BLOOD SPECIMEN / Unknown Venipuncture / Unknown 09/16/2017 4:13 AM CDT 09/16/2017 4:18 AM CDT Veronica Costello MD LAB - HEMATOLOGY ORD ERABLES [address] [phone] * MAGNESIUM BLOOD (09/16/2017 4:13 AM CDT) Magnesium 2.1 1.6 - 2.6 mg/dL 09/16/2017 4:39 AM CDT [facility] Blood BLOOD SPECIMEN / Unknown Venipuncture / Unknown 09/16/2017 4:13 AM CDT 09/16/2017 4:17 AM CDT Veronica Costello MD LAB - CHEMISTRY ORDE RAISA [address] [phone] * (ABNORMAL) BASIC METABOLIC PANEL (CALCIUM TOTAL) (09/16/2017 4:13 AM CDT) BUN 18 7 - 26 mg/dL 09/16/2017 4:39 AM [facility] Creatinine 0.6 0.6 - 1.2 mg/dL 09/16/2017 4:39 AM [facility] Sodium 138 136 - 145 mmol/L 09/16/2017 4:39 AM [facility] Potassium 4.1 3.5 - 4.5 mmol/L 09/16/2017 4:39 AM [facility] Chloride 96(L) 98 - 107 mmol/L 09/16/2017 4:39 AM [facility] CO2 32(H) 22 - 29 mmol/L 09/16/2017 4:39 AM [facility] Glucose 92 70 - 115 mg/dL 09/16/2017 4:39 AM [facility] Calcium 8.8 8.4 - 10.2 mg/dL 09/16/2017 4:39 AM [facility] Anion Gap 14 8 - 18 09/16/2017 4:39 AM [facility] BUN/Creatinine Ratio 30(H) 7 - 23 09/16/2017 4:39 AM [facility] Osmolality Calculated 288 270 - 300 mOsm/kg 09/16/2017 4:39 AM [facility] eGFR >60 >60 mL/min/1.7 3 m2 09/16/2017 4:39 AM [facility] Blood BLOOD SPECIMEN / Unknown Venipuncture / Unknown 09/16/2017 4:13 AM CDT 09/16/2017 4:17 AM T Veronica Costello MD LAB - CHEMISTRY ROYCE K[facility] Organization Address City/State/ZIP Co de Phone Number [facility] [id number] [phone] * PHOSPHORUS BLOOD (09/16/2017 4:13 AM T) Phosphorus 2.6 2.3 - 4.7 mg/dL 09/16/2017 4:39 AM [facility] Blood BLOOD SPECIMEN / Unknown Venipuncture / Unknown 09/16/2017 4:13 AM CDT 09/16/2017 4:17 AM CDT [facility] LAB - CHEMISTRY ORDERABLES [address] [phone] * GLUCOSE - POINT OF CARE (09/16/2017 12:23 AM CDT) Glucose WB/POC 89 70 - 115 mg/dL 09/16/2017 12:36 AM CDT [facility] Blood BLOOD SPECIMEN / Unknown 09/16/2017 12:23 AM CDT 09/16/2017 12:36 AM CDT [facility] - 09/16/2017 12:36 AM CDT Last Turner: LYUBOV ??RADHA Jason Nash MD LAB - POINT OF CARE ORDERABLES [address] [phone] * GLUCOSE - POINT OF CARE (09/15/2017 6:01 PM CDT) Glucose WB/POC 99 70 - 115 mg/dL 09/15/2017 6:33 PM CDT [facility] Blood BLOOD SPECIMEN / Unknown 09/15/2017 6:01 PM CDT 09/15/2017 6:33 PM CDT Narrative [facility] - 09/15/2017 6:33 PM CDT Last Turner: SG ??JOSE L Jason Nash MD LAB - POINT OF CARE ORDERABLES [address] [phone] * GLUCOSE - POINT OF CARE (09/15/2017 11:56 AM CDT) Glucose WB/POC 104 70 - 115 mg/dL 09/15/2017 12:09 PM CDT [facility] Blood BLOOD SPECIMEN / Unknown 09/15/2017 11:56 AM CDT 09/15/2017 12:09 PM CDT Narrative [facility] - 09/15/2017 12:09 PM CDT Last Turner: CHELA ??GLADYS Jason Nash MD LAB - POINT OF CARE ORDERABLES Performing Organization Address City/State/[facility] Co de Phone Number [address] [phone] * EGD (09/15/2017 8:58 AM CDT) Report [...] insertion. The externally ? removable 24 Fr Data Expedition-Travee gastrostomy tube was lubricated. The G-tube ? [...] Procedure Code(s): ? --- Professional --- ? 05326, Esophagogastroduoden oscopy, flexible, transoral; with directed ? placement of percutaneous gastrostomy tube Diagnosis Code(s): ?--- Professional --- ?R13.10, Dysphagia, unspecified ?Z43.1, Encounter for attention to gastrostomy ?R63.3, Feeding difficulties CPT copyright 2016 [employer]. All rights reserved. The codes documented in this report are preliminary and upon medical insurance coder review may be revised to meet current compliance requirements. Louis Mcconnell MD 09/15/2017 10:44:23 AM Note Initiated On: 09/15/2017 8:58 AM Number of Addenda: 0 ? [facility] ? [address] 09/15/2017 8:58 AM CDT Louis Mcconnell MD GI PROCEDURE ORDERAB LES Performing Organization Address City/[facility] Co de Phone Number [facility] * GLUCOSE - POINT OF CARE (09/15/2017 8:05 AM CDT) Glucose WB/POC 97 70 - 115 mg/dL 09/15/2017 8:18 AM CDT [facility] Blood BLOOD SPECIMEN / Unknown 09/15/2017 8:05 AM CDT 09/15/2017 8:18 AM CDT Narrative [facility] - 09/15/2017 8:18 AM CDT Last Turner: CHELA CRAIN Jason Nash MD LAB - POINT OF CARE ORDERABLES [facility] [address] [place] [address] * XR CHEST 1VW PORTABLE (09/15/2017 5:22 [...] Dictated by Jay Bowens MD (vice president of development). This report was approved ??by Jay Bowens [...] Dictated by Jay Bowens MD (vice president of development). This report was approved by Jay Bowens [...] 8.6 10? 3 /uL 09/15/2017 6:06 AM [facility] Total Cell Count 100 09/16/19 18 6:06 AM [facility] Neutrophils Absolute Manual 7.48(H) 1.60 - 7.00 10? 3 /uL 09/15/2017 6:06 AM [facility] Comment:(BANDS+SEGS) x WBC = NEUT # (ANC) Lymphocyte Absolute Manual 0.77(L) 0.80 - 2.90 10? 3 /uL 09/15/2017 6:06 AM [facility] Monocytes Absolute Manual 0.34 0.14 - 0.66 10? 3 /uL 09/15/2017 6:06 AM [facility] Neutrophil % Manual 87(H) 30 - 60 % 09/15/2017 6:06 AM [facility] Lymphocyte % Manual 9(L) 20 - 45 % 09/15/2017 6:06 AM [facility] Monocytes % Manual 4 2 - 10 % 09/15/2017 6:06 AM [facility] Platelet Estimate Adequate Adequate 09/15/2017 6:06 AM [facility] Anisocytosis 1+(A) None 09/15/2017 6:06 AM [facility] Hypochromia 1+(A) None 09/15/2017 6:06 AM [facility] Schistocytes Few(A) None 09/15/2017 6:06 AM [facility] Ovalocytes 1+(A) None 09/15/2017 6:06 AM [facility] Blood BLOOD SPECIMEN / Unknown Venipuncture / Unknown 09/15/2017 4:41 AM CDT 09/15/2017 4:56 AM CDT Veronica Costello MD LAB - HEMATOLOGY ORD ERABLES [facility] [address] [phone] * TYPE + SCREEN PANEL (09/15/2017 4:41 AM CDT) Pathologist [facility] Antibody Screen NEG 8 6:06 AM CDT [facility] ABO Rh A POS 09/15/2017 6:06 AM CDT [facility] Blood Bank BLOOD SPECIMEN / Unknown Venipuncture / Unknown 09/15/2017 4:41 AM CDT 09/15/2017 5:13 AM CDT Delphine Waddell [employer] LAB - BLOOD BANK ORDERABLES [facility] [address] * (ABNORMAL) CBC W AUTO DIFFERENTIAL (09/15/2017 4:41 AM CDT) [facility] WBC 8.6 3.5 - 10.5 10? 3 /uL 09/15/2017 5:20 AM [facility] RBC 2.89(L) 4.30 - 5.70 10? 6 /uL 09/15/2017 5:20 AM [facility] Hemoglobin 8.2(L) 13.5 - 17.5 g/dL 09/15/2017 5:20 AM [facility] Hematocrit 27.6(L) 39.0 - 50.0 % 09/15/2017 5:20 AM [facility] MCV 95.5 81.0 - 97.0 fL 09/15/2017 5:20 AM [facility] MCH 28.4 28.0 - 34.0 pg 09/15/2017 5:20 AM [facility] MCHC 29.7(L) 32.0 - 36.0 g/dL 09/15/2017 5:20 AM [facility] Platelet Count 186 150 - 400 10? 3 /uL 09/15/2017 5:20 AM [facility] RDW-SD 74.8(H) 36.0 - 50.0 fL 09/15/2017 5:20 AM [facility] RDW-CV 22.0(H) 11.2 - 14.8 % 09/15/2017 5:20 AM CDT [facility] MPV 13.1(H) 9.3 - 12.8 fL 09/15/2017 5:20 AM CDT [facility] Blood BLOOD SPECIMEN / Unknown Venipuncture / Unknown 09/15/2017 4:41 AM CDT 09/15/2017 4:56 AM CDT Veronica Costello MD LAB - HEMATOLOGY ORD ERABLES [address] [phone] * MAGNESIUM BLOOD (09/15/2017 4:41 AM CDT) Magnesium 1.8 1.6 - 2.6 mg/dL 09/15/2017 5:51 AM CDT [facility] Blood BLOOD SPECIMEN / Unknown Venipuncture / Unknown 09/15/2017 4:41 AM CDT 09/15/2017 4:56 AM CDT Veronica Costello MD LAB - CHEMISTRY ORDMarj KLINE [address] [phone] * (ABNORMAL) BASIC METABOLIC PANEL (CALCIUM TOTAL) (09/15/2017 4:41 AM CDT) BUN 23 7 - 26 mg/dL 09/15/2017 5:51 AM CDT [facility] Creatinine 0.6 0.6 - 1.2 mg/dL 09/15/2017 5:51 AM T [facility] Sodium 138 136 - 145 mmol/L 09/15/2017 5:51 AM CDT [facility] Potassium 3.8 3.5 - 4.5 mmol/L 09/15/2017 5:51 AM T [facility] Chloride 95(L) 98 - 107 mmol/L 09/15/2017 5:51 AM T [facility] CO2 33(H) 22 - 29 mmol/L 09/15/2017 5:51 AM [facility] Glucose 103 70 - 115 mg/dL 09/15/2017 5:51 AM [facility] Calcium 8.8 8.4 - 10.2 mg/dL 09/15/2017 5:51 AM [facility] Anion Gap 14 8 - 18 09/15/2017 5:51 AM [facility] BUN/Creatinine Ratio 38(H) 7 - 23 09/15/2017 5:51 AM [facility] Osmolality Calculated 290 270 - 300 mOsm/kg 09/15/2017 5:51 AM [facility] eGFR >60 >60 mL/min/1.7 3 m2 09/15/2017 5:51 AM [facility] Blood BLOOD SPECIMEN / Unknown Venipuncture / Unknown 09/15/2017 4:41 AM CDT 09/15/2017 4:56 AM CDT Veronica Costello MD LAB - CHEMISTRY ROYCE KLINE [facility] Organization Address City/State/ZIP Co de Phone Number [facility] [address] [place] [address] * (ABNORMAL) B-TYPE NATRIURETIC PEPTIDE (09/15/2017 4:41 AM CDT) BNP 694(H) See Comment pg/mL 09/15/2017 5:35 AM [facility] Comment: A decision threshold of 100 [...] - CHEMISTRY ROYCE KLINE Performing Organization Address [facility]/State/[facility] Co de Phone Number [facility] [address] [place] [address], [facility] [phone] * (ABNORMAL) PT-INR [facility] (09/15/2017 4:41 AM CDT) [facility] Signature PT 15.1(H) 12.1 - 14.8 Seconds 09/15/2017 5:33 AM CDT [facility] INR 1.2 See Comment 09/15/2017 5:33 AM CDT [facility] Comment: Suggested therapeutic range for low-intensity [...] - COAGULATION OR DERABLES Performing Organization Address City/[facility]/ZIP Co de Phone Number [address] [phone] * (ABNORMAL) GLUCOSE - POINT OF CARE (09/15/2017 2:23 AM CDT) Glucose WB/POC 145(H) 70 - 115 mg/dL 09/15/2017 2:38 AM CDT [facility] Blood BLOOD SPECIMEN / Unknown 09/15/2017 2:23 AM CDT 09/15/2017 2:38 AM CDT Narrative [facility] - 09/15/2017 2:38 AM CDT Last Turner: SHEREE ROJAS Jason Nash MD LAB - POINT OF CARE ORDERABLES Performing Organization Address [facility]/[place] [address], [facility] [phone] * (ABNORMAL) GLUCOSE - POINT OF CARE (09/14/2017 7:45 PM CDT) Glucose WB/POC 165(H) 70 - 115 mg/dL 09/14/2017 8:08 PM CDT [facility] Blood BLOOD SPECIMEN / Unknown 09/14/2017 7:45 PM CDT 09/14/2017 8:08 PM CDT Narrative [facility] - 09/14/2017 8:08 PM CDT Last Turner: SHEREE ROJAS Jason Nash MD LAB - POINT OF CARE ORDERABLES Performing Organization Address City/[facility]/[place] [address], [facility] [phone] * (ABNORMAL) GLUCOSE - POINT OF CARE (09/14/2017 6:27 PM CDT) Glucose WB/POC 170(H) 70 - 115 mg/dL 09/14/2017 6:48 PM CDT [facility] Blood BLOOD SPECIMEN / Unknown 09/14/2017 6:27 PM CDT 09/14/2017 6:48 PM CDT [facility] - 09/14/2017 6:48 PM CDT Last Turner: STRUM ?YWATT Jason Nash MD LAB - POINT OF CARE ORDERABLES Performing Organization Address [facility]/ZIP Co de Phone Number [address] [phone] * (ABNORMAL) GLUCOSE - POINT OF CARE (09/14/2017 12:46 PM CDT) Glucose WB/POC 183(H) 70 - 115 mg/dL 09/14/2017 1:16 PM CDT [facility] Blood BLOOD SPECIMEN / Unknown 09/14/2017 12:46 PM CDT 09/14/2017 1:16 PM CDT [facility] - 09/14/2017 1:16 PM CDT Last Turner: STRUM ?WYATT Jason Nash MD LAB - POINT OF CARE ORDERABLES Performing Organization Address [facility] Co de Phone Number [address] [phone] * (ABNORMAL) GLUCOSE - POINT OF CARE (09/14/2017 6:34 AM CDT) Glucose WB/POC 149(H) 70 - 115 mg/dL 09/14/2017 6:48 AM CDT [facility] Blood BLOOD SPECIMEN / Unknown 09/14/2017 6:34 AM CDT 09/14/2017 6:48 AM CDT [facility] - 09/14/2017 6:48 AM CDT Last Turner: SHEREE ??GRECIA Jason Nash MD LAB - POINT OF CARE ORDERABLES [place] [address] [phone] * XR CHEST 1VW PORTABLE (09/14/2017 6:19 [...] Dictated by Jay Bowens MD (vice president of development). I, Dr. SULLY RUANO M.D. have personally [...] Dictated by Jay Bowens MD (vice president of development). I, Dr. SULLY RUANO M.D. have personally reviewed and interpreted this examination/study. This report was electronically signed by SULLY RUANO M.D. on 09/14/2017 10:19 AM . Veronica Costello MD DIAGNOSTIC IMAGING O RDERABLES * (ABNORMAL) DIFFERENTIAL MANUAL (09/14/2017 5:21 AM CDT) WBC (corrected for NRBC) 10.1 10? 3 /uL 09/14/2017 6:45 AM [facility] Total Cell Count 100 09/14/2017 6:45 AM [facility] Neutrophils Absolute Manual 8.08(H) 1.60 - 7.00 10? 3 /uL 09/14/2017 6:45 AM [facility] Comment:(BANDS+SEGS) x WBC = NEUT # (ANC) Lymphocyte Absolute Manual 0.61(L) 0.80 - 2.90 10? 3 /uL 09/14/2017 6:45 AM [facility] Monocytes Absolute Manual 1.31(H) 0.14 - 0.66 10? 3 /uL 09/14/2017 6:45 AM [facility] Eosinophils Absolute Manual 0.10 0.00 - 0.22 10? 3 /uL 09/14/2017 6:45 AM [facility] Band % Manual 2 0 - 10 % 09/14/2017 6:45 AM [facility] Neutrophil % Manual 78(H) 30 - 60 % 09/14/2017 6:45 AM [facility] Lymphocyte % Manual 6(L) 20 - 45 % 09/14/2017 6:45 AM [facility] Monocytes % Manual 13(H) 2 - 10 % 09/14/2017 6:45 AM [facility] Eosinophils % Manual 1 1 - 6 % 09/14/2017 6:45 AM [facility] Platelet Estimate Adequate Adequate 09/14/2017 6:45 AM [facility] RBC Morphology Normal 09/14/2017 6:45 AM [facility] Blood BLOOD SPECIMEN / Unknown Venipuncture / Unknown 09/14/2017 5:21 AM CDT 09/14/2017 5:30 AM CDT Veronica Costello MD LAB - HEMATOLOGY ORD ERABLES [facility] [address] [place] [address] * (ABNORMAL) CBC W AUTO DIFFERENTIAL (09/14/2017 5:21 AM CDT) WBC 10.1 3.5 - 10.5 10? 3 /uL 09/14/2017 5:52 AM [facility] Comment:The WBC count is cor rected by the instrument for nRBC's RBC 3.00(L) 4.30 - 5.70 10? 6 /uL 09/14/2017 5:52 AM [facility] Hemoglobin 8.7(L) 13.5 - 17.5 g/dL 09/14/2017 5:52 AM [facility] Hematocrit 28.4(L) 39.0 - 50.0 % 09/14/2017 5:52 AM [facility] MCV 94.7 81.0 - 97.0 fL 09/14/2017 5:52 AM [facility] MCH 29.0 28.0 - 34.0 pg 09/14/2017 5:52 AM [facility] MCHC 30.6(L) 32.0 - 36.0 g/dL 09/14/2017 5:52 AM [facility] Platelet Count 224 150 - 400 10? 3 /uL 09/14/2017 5:52 AM [facility] RDW-SD 75.0(H) 36.0 - 50.0 fL 09/14/2017 5:52 AM [facility] RDW-CV 21.9(H) 11.2 - 14.8 % 09/14/2017 5:52 AM CDT [facility] MPV 13.2(H) 9.3 - 12.8 fL 09/14/2017 5:52 AM CDT [facility] nRBC Absolute 0.15(H) 0 10? 3 /uL 09/14/2017 5:52 AM CDT [facility] nRBC Auto 1.5(H) 0 /100 WBC 09/14/2017 5:52 AM T [facility] Reflex Status Manual Differential to follow. 09/14/2017 5:52 AM CDT [facility] Blood BLOOD SPECIMEN / Unknown Venipuncture / Unknown 09/14/2017 5:21 AM CDT 09/14/2017 5:30 AM CDT Veronica Costello MD LAB - HEMATOLOGY ORD ERABLES Performing Organization Address City/[facility]/ZIP Co de Phone Number [address] [phone] * MAGNESIUM BLOOD (09/14/2017 5:21 AM CDT) Magnesium 1.6 1.6 - 2.6 mg/dL 09/14/2017 5:53 AM T [facility] Blood BLOOD SPECIMEN / Unknown Venipuncture / Unknown 09/14/2017 5:21 AM CDT 09/14/2017 5:30 AM CDT Veronica Costello MD LAB - CHEMISTRY ORDE RABANGELIA [address] [phone] * (ABNORMAL) BASIC METABOLIC PANEL (CALCIUM TOTAL) (09/14/2017 5:21 AM CDT) BUN 21 7 - 26 mg/dL 09/14/2017 5:53 AM T [facility] Creatinine 0.6 0.6 - 1.2 mg/dL 09/14/2017 5:53 AM T [facility] Sodium 138 136 - 145 mmol/L 09/14/2017 5:53 AM T [facility] Potassium 3.7 3.5 - 4.5 mmol/L 09/14/2017 5:53 AM [facility] Chloride 96(L) 98 - 107 mmol/L 09/14/2017 5:53 AM [facility] CO2 32(H) 22 - 29 mmol/L 09/14/2017 5:53 AM [facility] Glucose 136(H) 70 - 115 mg/dL 09/14/2017 5:53 AM [facility] Calcium 8.7 8.4 - 10.2 mg/dL 09/14/2017 5:53 AM [facility] Anion Gap 14 8 - 18 09/14/2017 5:53 AM [facility] BUN/Creatinine Ratio 35(H) 7 - 23 09/14/2017 5:53 AM [facility] Osmolality Calculated 291 270 - 300 mOsm/kg 09/14/2017 5:53 AM [facility] eGFR >60 >60 mL/min/1.7 3 m2 09/14/2017 5:53 AM [facility] Blood BLOOD SPECIMEN / Unknown Venipuncture / Unknown 09/14/2017 5:21 AM CDT 09/14/2017 5:30 AM CDT Veronica Costello MD LAB - CHEMISTRY ROYCE KLINE [address] [phone] * GLUCOSE - POINT OF CARE (09/14/2017 12:20 AM CDT) Glucose WB/POC 88 70 - 115 mg/dL 09/14/2017 12:35 AM T [facility] Blood BLOOD SPECIMEN / Unknown 09/14/2017 12:20 AM CDT 09/14/2017 12:35 AM CDT Narrative [facility] - 09/14/2017 12:35 AM CDT Last Turner: SHEREE ?NAVEEN Jason Nash MD LAB - POINT OF CARE ORDERABLES [address] [phone] * XR ABDOMEN KUB (09/13/2017 7:16 PM [...] Dictated by Jay Bowens MD (vice president of development). Dr. SULLY Stringer M.D. have personally reviewed [...] Dictated by Jay Bowens MD (vice president of development). Dr. SLULY Stringer M.D. have personally reviewed and interpreted this examination/study. This report was electronically signed by SULLY RUANO M.D. on 09/14/2017 10:16 AM . Ivonne Rubin MD DIAGNOSTIC IMAGING O RDERABLES * GLUCOSE - POINT OF CARE (09/13/2017 6:45 PM CDT) Glucose WB/POC 91 70 - 115 mg/dL 09/13/2017 6:58 PM CDT [facility] Blood BLOOD SPECIMEN / Unknown 09/13/2017 6:45 PM CDT 09/13/2017 6:58 PM CDT Narrative [facility] - 09/13/2017 6:58 PM CDT Last Turner: Ajith) ??GLENDY Jason Nash MD LAB - POINT OF CARE ORDERABLES [address] [phone] * GLUCOSE - POINT OF CARE (09/13/2017 11:14 AM CDT) Glucose WB/POC 108 70 - 115 mg/dL 09/13/2017 11:45 AM CDT [facility] Blood BLOOD SPECIMEN / Unknown 09/13/2017 11:14 AM CDT 09/13/2017 11:45 AM CDT Narrative [facility] - 09/13/2017 11:45 AM CDT Last Turner: Ajith) ??GLENDY Jason Nash MD LAB - POINT OF CARE ORDERABLES [address] [phone] * GLUCOSE - POINT OF CARE (09/13/2017 7:02 AM CDT) Glucose WB/POC 101 70 - 115 mg/dL 09/13/2017 7:40 AM CDT [facility] Blood BLOOD SPECIMEN / Unknown 09/13/2017 7:02 AM CDT 09/13/2017 7:40 AM CDT Narrative [facility] - 09/13/2017 7:40 AM CDT Last Turner: RIKKI ??DANIELLE Jason Nash MD LAB - POINT OF CARE ORDERABLES [address] [phone] * XR CHEST 1VW PORTABLE (09/13/2017 5:20 [...] Dictated by Jay Bowens MD (vice president of development). Dr. SILAS Stringer MD have personally reviewed [...] Dictated by Jay Bowens MD (vice president of development). Dr. SILAS Stringer MD have personally reviewed and interpreted this examination/study. This report was electronically signed by SILAS NGUYỄN MD on09/13/2017 11:53 AM . Veronica Costello MD DIAGNOSTIC IMAGING O RDERABLES * (ABNORMAL) RBC MORPHOLOGY (09/13/2017 5:17 AM CDT) Macrocytosis 1+(A) None 09/13/2017 6:30 AM [facility] Blood BLOOD SPECIMEN / Unknown Venipuncture / Unknown 09/13/2017 5:17 AM CDT 09/13/2017 5:23 AM CDT Veronica Costello MD LAB - HEMATOLOGY ORD ERABLES [facility] [address] [place] [address] * (ABNORMAL) CBC W AUTO DIFFERENTIAL (09/13/2017 5:17 AM CDT) Pathologist [facility] WBC 8.9 3.5 - 10.5 10? 3 /uL 09/13/2017 6:30 AM [facility] RBC 2.95(L) 4.30 - 5.70 10? 6 /uL 09/13/2017 6:30 AM [facility] Hemoglobin 8.5(L) 13.5 - 17.5 g/dL 09/13/2017 6:30 AM [facility] Hematocrit 27.6(L) 39.0 - 50.0 % 09/13/2017 6:30 AM [facility] MCV 93.6 81.0 - 97.0 fL 09/13/2017 6:30 AM [facility] MCH 28.8 28.0 - 34.0 pg 09/13/2017 6:30 AM [facility] MCHC 30.8(L) 32.0 - 36.0 g/dL 09/13/2017 6:30 AM [facility] Platelet Count 213 150 - 400 10? 3 /uL 09/13/2017 6:30 AM [facility] RDW-SD 70.6(H) 36.0 - 50.0 fL 09/13/2017 6:30 AM [facility] RDW-CV 21.5(H) 11.2 - 14.8 % 09/13/2017 6:30 AM [facility] MPV 13.0(H) 9.3 - 12.8 fL 09/13/2017 6:30 AM [facility] Neutrophils % 82.9(H) 35.0 - 70.0 % 09/13/2017 6:30 AM [facility] Lymphocytes % 10.1(L) 19.7 - 55.1 % 09/13/2017 6:30 AM [facility] Monocytes % 3.4 3.0 - 15.0 % 09/13/2017 6:30 AM [facility] Eosinophils % 3.4 0.0 - 6.0 % 09/13/2017 6:30 AM [facility] Basophil % 0.2 0.0 - 1.5 % 09/13/2017 6:30 AM [facility] Neutrophils Absolute 7.4(H) 1.6 - 7.0 10? 3 /uL 09/13/2017 6:30 AM [facility] Lymphocyte Absolute 0.9 0.8 - 2.9 10? 3 /uL 09/13/2017 6:30 AM [facility] Monocytes Absolute 0.30 0.14 - 0.66 10? 3 /uL 09/13/2017 6:30 AM [facility] Eosinophils Absolute 0.30(H) 0.00 - 0.22 10? 3 /uL 09/13/2017 6:30 AM [facility] Basophils Absolute 0.02 0.00 - 0.06 10? 3 /uL 09/13/2017 6:30 AM [facility] Reflex Status Morphology review to follow. 09/13/2017 6:30 AM [facility] Comment:This is an appended report. These results have been appended to a previously final verified report. Immature Granulocytes % 0.8 0.0 - 1.0 % 09/13/2017 6:30 AM [facility] Blood BLOOD SPECIMEN / Unknown Venipuncture / Unknown 09/13/2017 5:17 AM CDT 09/13/2017 5:23 AM T Veronica Costello MD LAB - HEMATOLOGY ORD ERABLES [address] [phone] * MAGNESIUM BLOOD (09/13/2017 5:17 AM CDT) Magnesium 1.6 1.6 - 2.6 mg/dL 09/13/2017 5:41 AM [facility] Blood BLOOD SPECIMEN / Unknown Venipuncture / Unknown 09/13/2017 5:17 AM CDT 09/13/2017 5:23 AM CDT Veronica Costello MD LAB - CHEMISTRY ROYCE KLINE [facility] Organization Address City/State/ZIP Co de Phone Number [address] [phone] * (ABNORMAL) BASIC METABOLIC PANEL (CALCIUM TOTAL) (09/13/2017 5:17 AM CDT) BUN 26 7 - 26 mg/dL 09/13/2017 5:41 AM [facility] Creatinine 0.6 0.6 - 1.2 mg/dL 09/13/2017 5:41 AM [facility] Sodium 139 136 - 145 mmol/L 09/13/2017 5:41 AM [facility] Potassium 4.6(H) 3.5 - 4.5 mmol/L 09/13/2017 5:41 AM [facility] Chloride 96(L) 98 - 107 mmol/L 09/13/2017 5:41 AM [facility] CO2 31(H) 22 - 29 mmol/L 09/13/2017 5:41 AM [facility] Glucose 96 70 - 115 mg/dL 09/13/2017 5:41 AM [facility] Calcium 9.0 8.4 - 10.2 mg/dL 09/13/2017 5:41 AM [facility] Anion Gap 17 8 - 18 09/13/2017 5:41 AM [facility] BUN/Creatinine Ratio 43(H) 7 - 23 09/13/2017 5:41 AM [facility] Osmolality Calculated 293 270 - 300 mOsm/kg 09/13/2017 5:41 AM [facility] eGFR >60 >60 mL/min/1.7 3 m2 09/13/2017 5:41 AM CDT [facility] Blood BLOOD SPECIMEN / Unknown Venipuncture / Unknown 09/13/2017 5:17 AM CDT 09/13/2017 5:23 AM CDT Veronica Costello MD LAB - CHEMISTRY ROYCE KLINE [address] [phone] * (ABNORMAL) GLUCOSE - POINT OF CARE (09/12/2017 11:49 PM CDT) Glucose WB/POC 124(H) 70 - 115 mg/dL 09/13/2017 12:02 AM CDT [facility] Blood BLOOD SPECIMEN / Unknown 09/12/2017 11:49 PM CDT 09/13/2017 12:02 AM CDT [facility] - 09/13/2017 12:02 AM CDT Last Turner: TEETEE ??BETO Jason Nash MD LAB - POINT OF CARE ORDERABLES [address] [phone] * GLUCOSE - POINT OF CARE (09/12/2017 6:32 PM CDT) Glucose WB/POC 106 70 - 115 mg/dL 09/12/2017 6:58 PM CDT [facility] Blood BLOOD SPECIMEN / Unknown 09/12/2017 6:32 PM CDT 09/12/2017 6:58 PM CDT [facility] - 09/12/2017 6:58 PM CDT Last Turner: REUBEN FAGAN Jason Nash MD LAB - POINT OF CARE ORDERABLES [address] [phone] * GLUCOSE - POINT OF CARE (09/12/2017 1:33 PM CDT) Pathologist [facility] Glucose WB/POC 99 70 - 115 mg/dL 09/12/2017 1:55 PM [facility] Blood BLOOD SPECIMEN / Unknown 09/12/2017 1:33 PM CDT 09/12/2017 1:55 PM CDT Narrative [facility] - 09/12/2017 1:55 PM CDT Last Turner: REUBEN ?BERNARDINO Jason Nash MD LAB - POINT OF CARE ORDERABLES [facility] [address] [place] [address] * (ABNORMAL) DIFFERENTIAL MANUAL (09/12/2017 5:14 AM CDT) Pathologist [facility] WBC (corrected for NRBC) 9.5 10? 3 /uL 09/12/2017 8:05 AM [facility] Total Cell Count 100 09/13/19 18 8:05 AM [facility] Neutrophils Absolute Manual 7.70(H) 1.60 - 7.00 10? 3 /uL 09/12/2017 8:05 AM [facility] Comment:(BANDS+SEGS) x WBC = NEUT # (ANC) Lymphocyte Absolute Manual 0.57(L) 0.80 - 2.90 10? 3 /uL 09/12/2017 8:05 AM [facility] Monocytes Absolute Manual 0.86(H) 0.14 - 0.66 10? 3 /uL 09/12/2017 8:05 AM [facility] Eosinophils Absolute Manual 0.38(H) 0.00 - 0.22 10? 3 /uL 09/12/2017 8:05 AM [facility] Neutrophil % Manual 81(H) 30 - 60 % 09/12/2017 8:05 AM [facility] Lymphocyte % Manual 6(L) 20 - 45 % 09/12/2017 8:05 AM [facility] Monocytes % Manual 9 2 - 10 % 09/12/2017 8:05 AM [facility] Eosinophils % Manual 4 1 - 6 % 09/12/2017 8:05 AM [facility] Platelet Estimate Adequate Adequate 018 8:05 AM [facility] Anisocytosis 1+(A) None 09/12/2017 8:05 AM [facility] Polychromasia 1+(A) None 09/12/2017 8:05 AM [facility] Ovalocytes 1+(A) None 09/12/2017 8:05 AM [facility] Blood BLOOD SPECIMEN / Unknown Venipuncture / Unknown 09/12/2017 5:14 AM CDT 09/12/2017 5:23 AM CDT Veronica Costello MD LAB - HEMATOLOGY ORD ERABLES [facility] [address] [phone] * (ABNORMAL) CBC W AUTO DIFFERENTIAL (09/12/2017 5:14 AM CDT) WBC 9.5 3.5 - 10.5 10? 3 /uL 09/12/2017 6:51 AM [facility] RBC 2.99(L) 4.30 - 5.70 10? 6 /uL 09/12/2017 6:51 AM [facility] Hemoglobin 8.6(L) 13.5 - 17.5 g/dL 09/12/2017 6:51 AM [facility] Hematocrit 28.8(L) 39.0 - 50.0 % 09/12/2017 6:51 AM [facility] MCV 96.3 81.0 - 97.0 fL 09/12/2017 6:51 AM [facility] MCH 28.8 28.0 - 34.0 pg 09/12/2017 6:51 AM [facility] MCHC 29.9(L) 32.0 - 36.0 g/dL 09/12/2017 6:51 AM [facility] Platelet Count 185 150 - 400 10? 3 /uL 09/12/2017 6:51 AM [facility] RDW-SD 74.2(H) 36.0 - 50.0 fL 09/12/2017 6:51 AM [facility] RDW-CV 21.8(H) 11.2 - 14.8 % 09/12/2017 6:51 AM [facility] MPV 13.6(H) 9.3 - 12.8 fL 09/12/2017 6:51 AM [facility] nRBC Absolute 0.00 0 10? 3 /uL 09/12/2017 6:51 AM [facility] nRBC Auto 0.0 0 /100 WBC 09/12/2017 6:51 AM [facility] Neutrophils % 81.8(H) 35.0 - 70.0 % 09/12/2017 6:51 AM [facility] Lymphocytes % 5.8(L) 19.7 - 55.1 % 09/12/2017 6:51 AM [facility] Monocytes % 8.6 3.0 - 15.0 % 09/12/2017 6:51 AM [facility] Eosinophils % 3.4 0.0 - 6.0 % 09/12/2017 6:51 AM [facility] Basophil % 0.4 0.0 - 1.5 % 09/12/2017 6:51 AM [facility] Neutrophils Absolute 7.7(H) 1.6 - 7.0 10? 3 /uL 09/12/2017 6:51 AM [facility] Lymphocyte Absolute 0.6(L) 0.8 - 2.9 10? 3 /uL 09/12/2017 6:51 AM [facility] Monocytes Absolute 0.81(H) 0.14 - 0.66 10? 3 /uL 09/12/2017 6:51 AM [facility] Eosinophils Absolute 0.32(H) 0.00 - 0.22 10? 3 /uL 09/12/2017 6:51 AM [facility] Basophils Absolute 0.04 0.00 - 0.06 10? 3 /uL 09/12/2017 6:51 AM [facility] Immature Granulocytes % 1.1(H) 0.0 - 1.0 % 09/12/2017 6:51 AM [facility] Blood BLOOD SPECIMEN / Unknown Venipuncture / Unknown 09/12/2017 5:14 AM CDT 09/12/2017 5:23 AM CDT Veronica Costello MD LAB - HEMATOLOGY ORD ERABLES [address] [phone] * MAGNESIUM BLOOD (09/12/2017 5:14 AM CDT) Magnesium 1.6 1.6 - 2.6 mg/dL 09/12/2017 5:50 AM T [facility] Blood BLOOD SPECIMEN / Unknown Venipuncture / Unknown 09/12/2017 5:14 AM CDT 09/12/2017 5:23 AM CDT Veronica Costello MD LAB - CHEMISTRY ORDE RABANGELIA Performing Organization Address [facility]/ZIP Co de Phone Number [address] [phone] * (ABNORMAL) BASIC METABOLIC PANEL (CALCIUM TOTAL) (09/12/2017 5:14 AM CDT) BUN 35(H) 7 - 26 mg/dL 09/12/2017 5:50 AM [facility] Creatinine 0.7 0.6 - 1.2 mg/dL 09/12/2017 5:50 AM [facility] Sodium 139 136 - 145 mmol/L 09/12/2017 5:50 AM [facility] Potassium 5.0(H) 3.5 - 4.5 mmol/L 09/12/2017 5:50 AM [facility] Chloride 98 98 - 107 mmol/L 09/12/2017 5:50 AM [facility] CO2 28 22 - 29 mmol/L 09/12/2017 5:50 AM [facility] Glucose 96 70 - 115 mg/dL 09/12/2017 5:50 AM [facility] Calcium 8.6 8.4 - 10.2 mg/dL 09/12/2017 5:50 AM [facility] Anion Gap 18 8 - 18 09/12/2017 5:50 AM [facility] BUN/Creatinine Ratio 50(H) 7 - 23 09/12/2017 5:50 AM CDT [facility] Osmolality Calculated 296 270 - 300 mOsm/kg 09/12/2017 5:50 AM CDT [facility] eGFR >60 >60 mL/min/1.7 3 m2 09/12/2017 5:50 AM CDT [facility] Blood BLOOD SPECIMEN / Unknown Venipuncture / Unknown 09/12/2017 5:14 AM CDT 09/12/2017 5:23 AM CDT Veronica Costello MD LAB - CHEMISTRY ROYCE KLINE Performing Organization Address [facility]/ZIP Co de Phone Number [address] [phone] * GLUCOSE - POINT OF CARE (09/12/2017 5:12 AM CDT) Glucose WB/POC 113 70 - 115 mg/dL 09/12/2017 5:44 AM CDT [facility] Blood BLOOD SPECIMEN / Unknown 09/12/2017 5:12 AM CDT 09/12/2017 5:44 AM CDT Narrative [facility] - 09/12/2017 5:44 AM CDT Last Turner: CARLOS ?JANET Jason Nash MD LAB - POINT OF CARE ORDERABLES Performing Organization Address [facility] [place] [address], [facility] [phone] * GLUCOSE - POINT OF CARE (09/12/2017 1:14 AM CDT) Glucose WB/POC 114 70 - 115 mg/dL 09/12/2017 1:36 AM CDT [facility] Blood BLOOD SPECIMEN / Unknown 09/12/2017 1:14 AM CDT 09/12/2017 1:36 AM CDT Narrative [facility] - 09/12/2017 1:36 AM CDT Last Turner: UWADE ?JANET Jason Nash MD LAB - POINT OF CARE ORDERABLES [address] [phone] * (ABNORMAL) GLUCOSE - POINT OF CARE (09/11/2017 5:28 PM CDT) Glucose WB/POC 150(H) 70 - 115 mg/dL 09/11/2017 5:53 PM CDT [facility] Blood BLOOD SPECIMEN / Unknown 09/11/2017 5:28 PM CDT 09/11/2017 5:53 PM CDT Narrative [facility] - 09/11/2017 5:53 PM CDT Last Turner: PRINCESS CAMPBELL Jason Nash MD LAB - POINT OF CARE ORDERABLES Performing Organization Address [facility] Co de Phone Number [address] [phone] * (ABNORMAL) GLUCOSE - POINT OF CARE (09/11/2017 11:49 AM CDT) Glucose WB/POC 116(H) 70 - 115 mg/dL 09/11/2017 12:03 PM CDT [facility] Blood BLOOD SPECIMEN / Unknown 09/11/2017 11:49 AM CDT 09/11/2017 12:03 PM CDT Narrative [facility] - 09/11/2017 12:03 PM CDT Last Turner: PRINCESS CAMPBELL Jason Nash MD LAB - POINT OF CARE ORDERABLES Performing Organization Address City/[facility]/ZIP Co de Phone Number [address] [phone] * TYPE + SCREEN PANEL (09/11/2017 6:50 AM CDT) Antibody Screen NEG 8 7:42 AM CDT [facility] ABO Rh A POS 09/11/2017 7:42 AM CDT [facility] Blood Bank BLOOD SPECIMEN / Unknown Venipuncture / Unknown 09/11/2017 6:50 AM CDT 09/11/2017 6:59 AM CDT Veronica Costello MD LAB - BLOOD BANK ORD ERABLES [facility] [address] * XR CHEST 1VW (09/11/2017 6:33 [...] - 115 mg/dL 09/11/2017 6:27 AM CDT [facility] Blood BLOOD SPECIMEN / Unknown 09/11/2017 5:54 AM CDT 09/11/2017 6:26 AM CDT Narrative [facility] - 09/11/2017 6:27 AM CDT Last Turner: DEE ??HOA Jason Nash MD LAB - POINT OF CARE ORDERABLES Performing Organization Address City/State/[facility] Co de Phone Number [address] [phone] * (ABNORMAL) RBC MORPHOLOGY (09/11/2017 4:37 AM CDT) Platelet Estimate Adequate Adequate 018 8:36 AM CDT [facility] Anisocytosis 1+(A) None 09/11/2017 8:36 AM CDT [facility] Polychromasia Occasional( A) None 09/11/2017 8:36 AM CDT [facility] Target Cells Occasional( A) None 09/11/2017 8:36 AM [facility] Ovalocytes 1+(A) None 09/11/2017 8:36 AM [facility] Blood BLOOD SPECIMEN / Unknown Venipuncture / Unknown 09/11/2017 4:37 AM CDT 09/11/2017 4:55 AM CDT Pepeisa Machado Pravin TUCKER LAB - HEMATOLOGY ORD ERABLES [facility] [address] [phone] * (ABNORMAL) CBC W AUTO DIFFERENTIAL (09/11/2017 4:37 AM CDT) WBC 11.0(H) 3.5 - 10.5 10? 3 /uL 09/11/2017 5:35 AM [facility] RBC 3.07(L) 4.30 - 5.70 10? 6 /uL 09/11/2017 5:35 AM [facility] Hemoglobin 8.7(L) 13.5 - 17.5 g/dL 09/11/2017 5:35 AM [facility] Hematocrit 29.4(L) 39.0 - 50.0 % 09/11/2017 5:35 AM [facility] MCV 95.8 81.0 - 97.0 fL 09/11/2017 5:35 AM [facility] MCH 28.3 28.0 - 34.0 pg 09/11/2017 5:35 AM [facility] MCHC 29.6(L) 32.0 - 36.0 g/dL 09/11/2017 5:35 AM [facility] Platelet Count 234 150 - 400 10? 3 /uL 09/11/2017 5:35 AM [facility] RDW-SD 71.3(H) 36.0 - 50.0 fL 09/11/2017 5:35 AM [facility] RDW-CV 21.4(H) 11.2 - 14.8 % 09/11/2017 5:35 AM [facility] MPV 12.9(H) 9.3 - 12.8 fL 09/11/2017 5:35 AM [facility] nRBC Absolute 0.05(H) 0 10? 3 /uL 09/11/2017 5:35 AM [facility] nRBC Auto 0.4(H) 0 /100 WBC 09/11/2017 5:35 AM [facility] Comment:Confirmed by repeat analysis. Neutrophils % 82.9(H) 35.0 - 70.0 % 09/11/2017 5:35 AM [facility] Lymphocytes % 6.3(L) 19.7 - 55.1 % 09/11/2017 5:35 AM [facility] Monocytes % 7.9 3.0 - 15.0 % 09/11/2017 5:35 AM [facility] Eosinophils % 2.6 0.0 - 6.0 % 09/11/2017 5:35 AM [facility] Basophil % 0.3 0.0 - 1.5 % 09/11/2017 5:35 AM [facility] Neutrophils Absolute 9.1(H) 1.6 - 7.0 10? 3 /uL 09/11/2017 5:35 AM [facility] Lymphocyte Absolute 0.7(L) 0.8 - 2.9 10? 3 /uL 09/11/2017 5:35 AM [facility] Monocytes Absolute 0.87(H) 0.14 - 0.66 10? 3 /uL 09/11/2017 5:35 AM [facility] Eosinophils Absolute 0.29(H) 0.00 - 0.22 10? 3 /uL 09/11/2017 5:35 AM [facility] Basophils Absolute 0.03 0.00 - 0.06 10? 3 /uL 09/11/2017 5:35 AM [facility] Reflex Status Morphology review to follow. 09/11/2017 5:35 AM [facility] Immature Granulocytes % 1.6(H) 0.0 - 1.0 % 09/11/2017 5:35 AM [facility] Blood BLOOD SPECIMEN / Unknown Venipuncture / Unknown 09/11/2017 4:37 AM CDT 09/11/2017 4:55 AM T Veronica Costello MD LAB - HEMATOLOGY ORD ERABLES [address] [phone] * MAGNESIUM BLOOD (09/11/2017 4:37 AM CDT) Pathologist [facility] Magnesium 1.7 1.6 - 2.6 mg/dL 09/11/2017 5:25 AM [facility] Blood BLOOD SPECIMEN / Unknown Venipuncture / Unknown 09/11/2017 4:37 AM CDT 09/11/2017 4:55 AM CDT Veronica Costello MD LAB - CHEMISTRY ROYCE KLINE Performing Organization Address [facility]/State/ZIP Co de Phone Number [address] [phone] * (ABNORMAL) BASIC METABOLIC PANEL (CALCIUM TOTAL) (09/11/2017 4:37 AM CDT) [facility] BUN 39(H) 7 - 26 mg/dL 09/11/2017 5:25 AM [facility] Creatinine 0.8 0.6 - 1.2 mg/dL 09/11/2017 5:25 AM [facility] Sodium 142 136 - 145 mmol/L 09/11/2017 5:25 AM [facility] Potassium 5.5(H) 3.5 - 4.5 mmol/L 09/11/2017 5:25 AM [facility] Chloride 101 98 - 107 mmol/L 09/11/2017 5:25 AM [facility] CO2 25 22 - 29 mmol/L 09/11/2017 5:25 AM [facility] Glucose 123(H) 70 - 115 mg/dL 09/11/2017 5:25 AM [facility] Calcium 8.9 8.4 - 10.2 mg/dL 09/11/2017 5:25 AM [facility] Anion Gap 22(H) 8 - 18 09/11/2017 5:25 AM [facility] BUN/Creatinine Ratio 49(H) 7 - 23 09/11/2017 5:25 AM [facility] Osmolality Calculated 305(H) 270 - 300 mOsm/kg 09/11/2017 5:25 AM CDT [facility] eGFR >60 >60 mL/min/1.7 3 m2 09/11/2017 5:25 AM CDT [facility] Blood BLOOD SPECIMEN / Unknown Venipuncture / Unknown 09/11/2017 4:37 AM CDT 09/11/2017 4:55 AM CDT Veronica Costello MD LAB - CHEMISTRY ROYCE KLINE [facility] [address] [place] [address] * (ABNORMAL) B-TYPE NATRIURETIC PEPTIDE (09/11/2017 4:37 AM CDT) BNP 806(H) See Comment pg/mL 09/11/2017 5:31 AM CDT [facility] Comment: A decision threshold of 100 [...] - CHEMISTRY ROYCE KLINE Performing Organization Address [facility] de Phone Number [address] [phone] * PT-INR [facility] (09/11/2017 4:37 AM CDT) PT 14.1 12.1 - 14.8 Seconds 09/11/2017 5:15 AM CDT [facility] INR 1.1 See Comment 09/11/2017 5:15 AM CDT [facility] Comment: Suggested therapeutic range for low-intensity [...] - COAGULATION OR DERABLES Performing Organization Address [facility] de Phone Number [address] [phone] * (ABNORMAL) GLUCOSE - POINT OF CARE (09/11/2017 12:01 AM CDT) Glucose WB/POC 116(H) 70 - 115 mg/dL 09/11/2017 12:21 AM CDT [facility] Blood BLOOD SPECIMEN / Unknown 09/11/2017 12:01 AM CDT 09/11/2017 12:21 AM CDT [facility] - 09/11/2017 12:21 AM CDT Last Turner: DEE CHERY Jason Nash MD LAB - POINT OF CARE ORDERABLES Performing Organization Address [facility] Co de Phone Number [address] [phone] * (ABNORMAL) GLUCOSE - POINT OF CARE (09/10/2017 6:16 PM CDT) Glucose WB/POC 157(H) 70 - 115 mg/dL 09/10/2017 6:47 PM CDT [facility] Blood BLOOD SPECIMEN / Unknown 09/10/2017 6:16 PM CDT 09/10/2017 6:46 PM CDT [facility] - 09/10/2017 6:47 PM CDT Last Turner: PRINCESS ?KAR Jason Nash MD LAB - POINT OF CARE ORDERABLES Performing Organization Address [facility] Co de Phone Number [address] [phone] * (ABNORMAL) GLUCOSE - POINT OF CARE (09/10/2017 12:57 PM CDT) Glucose WB/POC 141(H) 70 - 115 mg/dL 09/10/2017 1:24 PM CDT [facility] Blood BLOOD SPECIMEN / Unknown 09/10/2017 12:57 PM CDT 09/10/2017 1:24 PM CDT [facility] - 09/10/2017 1:24 PM CDT Last Turner: PRINCESS CAMPBELL Jason Nash MD LAB - POINT OF CARE ORDERABLES [facility] [address] [phone] * (ABNORMAL) BLOOD GASES ART (09/10/2017 5:57 AM CDT) pH Arterial 7.45 7.35 - 7.45 09/10/2017 6:08 AM [facility] pCO2 Arterial 44 35 - 45 mmHg 09/10/2017 6:08 AM [facility] pO2 Arterial 80 71 - 95 mmHg 09/10/2017 6:08 AM [facility] HCO3 Arterial 30.0(H) 22.0 - 26.0 mmol/L 09/10/2017 6:08 AM [facility] TCO2 Arterial 31.3(H) 25.0 - 29.0 mmol/L 09/10/2017 6:08 AM [facility] Base Excess Arterial 5.4(H) -2.0 - 2.0 mmol/L 09/10/2017 6:08 AM [facility] Hemoglobin Arterial 8.2(L) 13.5 - 17.5 g/dL 09/10/2017 6:08 AM [facility] Oxyhemoglobin Arterial 94.5(L) 95.0 - 100.0 % 09/10/2017 6:08 AM [facility] Carboxyhemoglobin 0.3 0.0 - 3.0 % 09/10/2017 6:08 AM [facility] Methemoglobin 0.7 0.0 - 2.0 % 09/10/2017 6:08 AM [facility] FI O2 Arterial 40.0 % 09/10/2017 6:08 AM [facility] Blood, arterial ARTERIAL BLOOD SPECIMEN / Unknown Arterial Puncture / Unknown 09/10/2017 5:57 AM CDT 09/10/2017 6:05 AM [facility] Delphine Waddell [employer] LAB - BLOOD GASE S ORDERABLES [facility] [address] [place] [address] * (ABNORMAL) GLUCOSE - POINT OF CARE (09/10/2017 5:50 AM CDT) Glucose WB/POC 146(H) 70 - 115 mg/dL 09/10/2017 6:12 AM CDT [facility] Blood BLOOD SPECIMEN / Unknown 09/10/2017 5:50 AM CDT 09/10/2017 6:11 AM CDT Narrative [facility] - 09/10/2017 6:12 AM CDT Last Turner: DEE ??HOA Jason Nash MD LAB - POINT OF CARE ORDERABLES Performing Organization Address City/[facility]/ZIP Co de Phone Number [address] [phone] * PTT [facility] (09/10/2017 5:49 AM CDT) APTT 29.7 23.0 - 38.4 Seconds 09/10/2017 5:58 AM CDT [facility] Comment: Suggested therapeutic range for full dose I.V. heparin therapy for venous thromboembolism is 66.0-91.0 seconds. Blood BLOOD SPECIMEN / Unknown Lab Venipuncture / Unknown 09/10/2017 5:49 AM CDT 09/10/2017 5:50 AM CDT Yogesh Duncan MD LAB - COAGULATION OR DERABLES Performing Organization Address City/[facility]/ZIP Co de Phone Number [address] [phone] * (ABNORMAL) RBC MORPHOLOGY (09/10/2017 5:04 AM CDT) Platelet Estimate Adequate Adequate 09/10/2017 6:51 AM CDT [facility] Anisocytosis 1+(A) None 09/10/2017 6:51 AM CDT [facility] Stomatocytes 2+(A) None 09/10/2017 6:51 AM CDT [facility] Blood BLOOD SPECIMEN / Unknown Venipuncture / Unknown 09/10/2017 5:04 AM CDT 09/10/2017 5:08 AM CDT Jason Nash MD LAB - HEMATOLOGY ORD SP [address] [phone] * (ABNORMAL) BASIC METABOLIC PANEL (CALCIUM TOTAL) (09/10/2017 5:04 AM CDT) BUN 36(H) 7 - 26 mg/dL 09/10/2017 5:35 AM [facility] Creatinine 0.7 0.6 - 1.2 mg/dL 09/10/2017 5:35 AM [facility] Sodium 141 136 - 145 mmol/L 09/10/2017 5:35 AM [facility] Potassium 4.8(H) 3.5 - 4.5 mmol/L 09/10/2017 5:35 AM [facility] Chloride 103 98 - 107 mmol/L 09/10/2017 5:35 AM [facility] CO2 28 22 - 29 mmol/L 09/10/2017 5:35 AM [facility] Glucose 129(H) 70 - 115 mg/dL 09/10/2017 5:35 AM [facility] Calcium 8.6 8.4 - 10.2 mg/dL 09/10/2017 5:35 AM [facility] Anion Gap 15 8 - 18 09/10/2017 5:35 AM [facility] BUN/Creatinine Ratio >50(H) 7 - 23 09/10/2017 5:35 AM [facility] Osmolality Calculated 302(H) 270 - 300 mOsm/kg 09/10/2017 5:35 AM [facility] Blood BLOOD SPECIMEN / Unknown Venipuncture / Unknown 09/10/2017 5:04 AM CDT 09/10/2017 5:08 AM CDT Jason Nash MD LAB - CHEMISTRY ROYCE KLINE [address] [phone] * (ABNORMAL) CBC W AUTO DIFFERENTIAL (09/10/2017 5:04 AM CDT) WBC 11.0(H) 3.5 - 10.5 10? 3 /uL 09/10/2017 5:19 AM [facility] Comment:The WBC count is cor rected by the instrument for nRBC's RBC 2.86(L) 4.30 - 5.70 10? 6 /uL 09/10/2017 5:19 AM [facility] Hemoglobin 8.0(L) 13.5 - 17.5 g/dL 09/10/2017 5:19 AM [facility] Hematocrit 27.1(L) 39.0 - 50.0 % 09/10/2017 5:19 AM [facility] MCV 94.8 81.0 - 97.0 fL 09/10/2017 5:19 AM [facility] MCH 28.0 28.0 - 34.0 pg 09/10/2017 5:19 AM [facility] MCHC 29.5(L) 32.0 - 36.0 g/dL 09/10/2017 5:19 AM [facility] Platelet Count 249 150 - 400 10? 3 /uL 09/10/2017 5:19 AM [facility] RDW-SD 69.0(H) 36.0 - 50.0 fL 09/10/2017 5:19 AM [facility] RDW-CV 21.1(H) 11.2 - 14.8 % 09/10/2017 5:19 AM [facility] MPV 12.4 9.3 - 12.8 fL 09/10/2017 5:19 AM [facility] nRBC Absolute 0.14(H) 0 10? 3 /uL 09/10/2017 5:19 AM [facility] nRBC Auto 1.2(H) 0 /100 WBC 09/10/2017 5:19 AM [facility] Neutrophils % 83.6(H) 35.0 - 70.0 % 09/10/2017 5:19 AM [facility] Lymphocytes % 4.9(L) 19.7 - 55.1 % 09/10/2017 5:19 AM [facility] Monocytes % 9.6 3.0 - 15.0 % 09/10/2017 5:19 AM T [facility] Eosinophils % 1.4 0.0 - 6.0 % 09/10/2017 5:19 AM [facility] Basophil % 0.5 0.0 - 1.5 % 09/10/2017 5:19 AM [facility] Neutrophils Absolute 9.2(H) 1.6 - 7.0 10? 3 /uL 09/10/2017 5:19 AM [facility] Lymphocyte Absolute 0.5(L) 0.8 - 2.9 10? 3 /uL 09/10/2017 5:19 AM [facility] Monocytes Absolute 1.05(H) 0.14 - 0.66 10? 3 /uL 09/10/2017 5:19 AM [facility] Eosinophils Absolute 0.15 0.00 - 0.22 10? 3 /uL 09/10/2017 5:19 AM [facility] Basophils Absolute 0.05 0.00 - 0.06 10? 3 /uL 09/10/2017 5:19 AM [facility] Immature Granulocytes % 1.5(H) 0.0 - 1.0 % 09/10/2017 5:19 AM [facility] Blood BLOOD SPECIMEN / Unknown Venipuncture / Unknown 09/10/2017 5:04 AM CDT 09/10/2017 5:08 AM CDT Jason Nash MD LAB - HEMATOLOGY ORD SP [facility] [address] [phone] * (ABNORMAL) GLUCOSE ACCUCHECK (09/09/2017 11:31 PM CDT) Glucose, Fingerstick 127(H) 70-115mg/d L mg/dL [facility] (BEAKER) Comment: Insulin Protocol Last Turner: DEE ??HOA 09/09/2017 11:3 1 PM CDT Jason Nash MD LAB - CHEMISTRY ROYCE KLINE [facility] * GLUCOSE ACCUCHECK (09/09/2017 5:10 PM CDT) Glucose, Fingerstick 99 70-115mg/d L mg/dL [facility] ([facility]) Comment:Last Turner: CHRIS GUILLAUME 09/09/2017 5:10 PM CDT Jason Nash MD LAB - CHEMISTRY ORDMarj KLINE Performing Organization Address City/[facility]/ZIP Co de Phone Number [facility] ([facility]) * CULTURE AEROBIC (09/09/2017 3:41 PM CDT) Culture Aerobic Light Growth [facility] Comment:Normal oropharyngeal robert Gram Stain light White Blood Cells [facility] Gram Stain No Organism Seen [facility] Bronchial Washings SPECIMEN FROM LUNG OBTAINED BY BRONCHIAL WASHING PROCEDURE / Unknown 09/09/2017 3:41 PM CDT 09/09/2017 3:47 PM CDT Narrative [facility] - 09/11/2017 6:41 AM CDT Specimen Type->Bronchial Washings Resulting Lab: ?? [facility] MICROBIOLOGY [address] [place] [address] PH: [phone] Jason Nash MD LAB - MICROBIOLOGY O RDERABLES Performing Organization Address [facility] Co de Phone Number [facility] [address] [phone] * XR CHEST 1VW PORTABLE (09/09/2017 3:31 PM CDT) Anatomical Region Laterality Modality Chest Other Impressions 09/09/2017 4:31 PM CDT IMPRESSION: An endotracheal tube terminates at the mid thoracic trachea. A feeding tube extends to the stomach and beyond the [id number]. A left pleural pigtail catheter is partially imaged. Small right pleural effusion is unchanged. Left lower lobe opacity has decreased representing atelectasis versus airspace disease with possible persistent pleural effusion. Interstitial opacities are unchanged representing pulmonary edema and/or pneumonia. No pneumothorax is seen. The cardiac silhouette is partially obscured. The aorta is atherosclerotic. Report dictated by Rohan Hopkins M.D. (vice president of development). IDr. VIBHA M.D. have personally reviewed and [...] extends to the stomach and beyond the wcung-[id number]. A left pleuralpigtail catheter is partially imaged. Small right pleural effusion is unchanged. Left lower lobe opacity hasdecreased representing atelectasis versus airspace disease with possiblepersistent pleural effusion. Interstitial opacities are unchangedrepresenting pulmonary edema and/or pneumonia. No pneumothorax is seen. The cardiac silhouette is partiallyobscured. The aorta is atherosclerotic. Report dictated by Rohan Hopkins M.D. (vice president of development). Dr. VIBHA Stringer M.D. have personally reviewed and interpreted thisexamination/study. This report was electronically signed by VIBHA PHELPS M.D. on 09/09/20174:31 PM . Jason Nash MD DIAGNOSTIC IMAGING O RDERABLES * GLUCOSE ACCUCHECK (09/09/2017 11:57 AM CDT) Glucose, Fingerstick 79 70-115mg/d L mg/dL [facility]) Comment:Last Turner: CHELA PATTERSON 09/09/2017 11:5 7 AM CDT Jason Nash MD LAB - CHEMISTRY ROYCE KLINE [facility] Organization Address City/State/ZIP Co de Phone Number [facility] ([facility]) * (ABNORMAL) BASIC METABOLIC PANEL (CALCIUM TOTAL) (09/09/2017 10:31 AM CDT) BUN 36(H) 7 - 26 mg/dL [facility] Creatinine 0.8 0.6 - 1.2 mg/dL [facility] Sodium 142 136 - 145 mmol/L [facility] Potassium 4.7(H) 3.5 - 4.5 mmol/L [facility] Chloride 105 98 - 107 mmol/L [facility] CO2 26 22 - 29 mmol/L [facility] Glucose 80 70 - 115 mg/dL [facility] Calcium 8.5 8.4 - 10.2 mg/dL [facility] Anion Gap 16 8 - 18 [facility] BUN/Creatinine Ratio 45(H) 7 - 23 [facility] Osmolality Calculated 301(H) 270 - 300 mOsm/kg [facility] eGFR >60 >60 mL/min/1.7 3 m2 [facility] Blood specimen (specimen) BLOOD SPECIMEN / Unknown 09/09/2017 10:31 AM CDT 09/09/2017 10:40 AM CDT Jason Nash MD LAB - CHEMISTRY ROYCE [facility] Organization Address City/State/[facility] Co de Phone Number [address] [phone] * (ABNORMAL) BLOOD GASES ART (09/09/2017 8:41 AM CDT) pH Arterial 7.51(H) 7.35 - 7.45 [facility] pCO2 Arterial 38 35 - 45 mmHg [facility] pO2 Arterial 274(H) 71 - 95 mmHg [facility] HCO3 Arterial 29.2(H) 22.0 - 26.0 mmol/L [facility] TCO2 Arterial 30.4(H) 25.0 - 29.0 mmol/L [facility] Base Excess Arterial 5.7(H) -2.0 - 2.0 mmol/L [facility] Hemoglobin Arterial 7.6(L) 13.5 - 17.5 g/dL [facility] Oxyhemoglobin Arterial 98.7 95.0 - 100.0 % [facility] Carboxyhemoglobin 0.3 0.0 - 3.0 % [facility] Methemoglobin 0.5 0.0 - 2.0 % [facility] FI O2 Arterial 100.0 % [facility] Blood specimen (specimen) BLOOD SPECIMEN / Unknown 09/09/2017 8:41 AM CDT 09/09/2017 8:45 AM CDT Narrative [facility] - 09/09/2017 8:47 AM CDT FIO2->100 Jason Nash MD LAB - BLOOD GASES OR DERABLES [address] [phone] * (ABNORMAL) GLUCOSE ACCUCHECK (09/09/2017 6:15 AM CDT) Glucose, Fingerstick 133(H) 70-115mg/d L mg/dL [facility] Comment:Last Turner: CARLOS CARTAGENA 09/09/2017 6:15 AM CDT Jason Nash MD LAB - CHEMISTRY ORDE RAISA Performing Organization Address [facility] Co de Phone Number [facility] * XR CHEST 1VW PORTABLE (09/09/2017 4:23 AM CDT) Anatomical Region Laterality Modality Chest Other Impressions 09/09/2017 2:02 PM CDT IMPRESSION: There is interval intubation with tip of endotracheal tube terminating at the mid thoracic trachea. A feeding tube extends to the stomach and beyond the [id number]. A left pleural pigtail catheter is unchanged in position. Small right pleural effusion is unchanged. There is left lower lobe atelectasis versus airspace disease with possible persistent pleural effusion. Interstitial opacities have decreased representing pulmonary edema and/or pneumonia. No pneumothorax is seen. The cardiac silhouette is partially obscured. The aorta is atherosclerotic. Report dictated by Rohan Hopkins M.D. (vice president of development). I, Dr. VIBHA PHELPS M.D. have personally [...] tube extends to the stomach and beyondthe [id number]. A left pleural pigtail catheter is unchanged inposition. Small right pleural effusion is unchanged. There is left lower lobeatelectasis versus airspace disease with possible persistent pleuraleffusion. Interstitial opacities have decreased representing pulmonaryedema and/or pneumonia. No pneumothorax is seen. The cardiac silhouette is partially obscured. The aorta isatherosclerotic. Report dictated by Rohan Hopkins M.D. (vice president of development). I, Dr. VIBHA PHELPS M.D. have personally reviewed and interpreted thisexamination/study. This report was electronically signed by VIBHA PHELPS M.D. on 09/09/20172:02 PM . Delphine Waddell [employer] DIAGNOSTIC IMAGI NG ORDERABLES * (ABNORMAL) DIFFERENTIAL MANUAL (09/09/2017 4:22 AM CDT) WBC (corrected for NRBC) 18.9 10? 3 /uL [facility] Total Cell Count 100 [facility] Neutrophils Absolute Manual 14.55(H) 1.60 - 7.00 10? 3 /uL [facility] Comment:(BANDS+SEGS) x WBC = NEUT # (ANC) Lymphocyte Absolute Manual 1.70 0.80 - 2.90 10? 3 /uL [facility] Monocytes Absolute Manual 2.46(H) 0.14 - 0.66 10? 3 /uL [facility] Neutrophil % Manual 77(H) 30 - 60 % [facility] Lymphocyte % Manual 9(L) 20 - 45 % [facility] Monocytes % Manual 13(H) 2 - 10 % [facility] Metamyelocyte % Manual 1(H) 0 % [facility] Platelet Estimate Increased (A) Adequate [facility] Anisocytosis Occasiona l(A) None [facility] Blood specimen (specimen) BLOOD SPECIMEN / Unknown 09/09/2017 4:22 AM CDT 09/09/2017 4:27 AM CDT Jason Nash MD LAB - HEMATOLOGY ORD ERABLES [facility] [address] [phone] * (ABNORMAL) CBC W AUTO DIFFERENTIAL (09/09/2017 4:22 AM CDT) WBC 18.9(H) 3.5 - 10.5 10? 3 /uL [facility] Comment: The WBC count is corrected by the instrument for nRBC's All CBC parameters have been checked. RBC 3.27(L) 4.30 - 5.70 10? 6 /uL [facility] Hemoglobin 9.1(L) 13.5 - 17.5 g/dL [facility] Hematocrit 31.2(L) 39.0 - 50.0 % [facility] MCV 95.4 81.0 - 97.0 fL [facility] MCH 27.8(L) 28.0 - 34.0 pg [facility] MCHC 29.2(L) 32.0 - 36.0 g/dL [facility] Platelet Count 426(H) 150 - 400 10? 3 /uL [facility] RDW-SD 66.4(H) 36.0 - 50.0 fL [facility] RDW-CV 20.4(H) 11.2 - 14.8 % [facility] MPV 12.8 9.3 - 12.8 fL [facility] nRBC Absolute 0.45(H) 0 10? 3 /uL [facility] nRBC Auto 2.4(H) 0 /100 WBC [facility] Blood specimen (specimen) BLOOD SPECIMEN / Unknown 09/09/2017 4:22 AM CDT 09/09/2017 4:27 AM CDT Jason Nash MD LAB - HEMATOLOGY ORD ERABLES Performing Organization Address [facility]/ZIP Co de Phone Number [address] [phone] * (ABNORMAL) PT-INR [facility] (09/09/2017 4:22 AM CDT) PT 15.8(H) 12.1 - 14.8 Seconds [facility] INR 1.3 See Comment [facility] Comment: Suggested therapeutic range for low-intensity coumadin therapy for venous thromboembolism prophylaxis is an INR of 2.0-3.0. ??For high risk patients (Mitral Valve Prosthesis, Atrial Fibrillation, history of TIA/stroke), suggested prophylactic therapeutic range is an INR of 2.5-3.5. Blood specimen (specimen) BLOOD SPECIMEN / Unknown 09/09/2017 4:22 AM CDT 09/09/2017 4:27 AM CDT Narrative [facility] - 09/09/2017 4:43 AM CDT Is patient on Heparin, Argatroban or Dabigatran?->N Jason Nash MD LAB - COAGULATION OR DERABLES Performing Organization Address [facility] Co de Phone Number [address] [phone] * (ABNORMAL) BLOOD GASES ART (09/09/2017 4:22 AM CDT) pH Arterial 7.41 7.35 - 7.45 [facility] pCO2 Arterial 45 35 - 45 mmHg [facility] pO2 Arterial 65(L) 71 - 95 mmHg [facility] HCO3 Arterial 27.4(H) 22.0 - 26.0 mmol/L [facility] TCO2 Arterial 28.8 25.0 - 29.0 mmol/L [facility] Base Excess Arterial 2.4(H) -2.0 - 2.0 mmol/L [facility] Hemoglobin Arterial 8.6(L) 13.5 - 17.5 g/dL [facility] Oxyhemoglobin Arterial 90.7(L) 95.0 - 100.0 % [facility] Carboxyhemoglobin 0.3 0.0 - 3.0 % [facility] Methemoglobin 0.3 0.0 - 2.0 % [facility] FI O2 Arterial 100.0 % [facility] Blood specimen (specimen) BLOOD SPECIMEN / Unknown 09/09/2017 4:22 AM CDT 09/09/2017 4:45 AM CDT Delphine Waddell [facility] LAB - BLOOD GASE S ORDERABLES [facility] [address] [phone] * (ABNORMAL) BASIC METABOLIC PANEL (CALCIUM TOTAL) (09/09/2017 4:22 AM CDT) BUN 35(H) 7 - 26 mg/dL [facility] Creatinine 0.8 0.6 - 1.2 mg/dL [facility] Sodium 140 136 - 145 mmol/L [facility] Potassium 5.7(H) 3.5 - 4.5 mmol/L [facility] Chloride 104 98 - 107 mmol/L [facility] CO2 24 22 - 29 mmol/L [facility] Glucose 238(H) 70 - 115 mg/dL [facility] Calcium 8.9 8.4 - 10.2 mg/dL [facility] Anion Gap 18 8 - 18 [facility] BUN/Creatinine Ratio 44(H) 7 - 23 [facility] Osmolality Calculated 306(H) 270 - 300 mOsm/kg [facility] eGFR >60 >60 mL/min/1.7 3 m2 [facility] Blood specimen (specimen) BLOOD SPECIMEN / Unknown 09/09/2017 4:22 AM CDT 09/09/2017 4:27 AM CDT Jason Nash MD LAB - CHEMISTRY ORDMarj KLINE [facility] [address] [phone] * CBC W AUTO DIFFERENTIAL (09/09/2017 4:22 AM CDT) Blood specimen (specimen) BLOOD SPECIMEN / Unknown 09/09/2017 4:22 AM CDT Narrative [facility] - 09/09/2017 5:12 AM CDT The following orders were created for panel order CBC w Differential. Procedure ? Abnormality ? Status ? --------- ? ------ ? CBC WITH DIFFERENTIAL[[id number]] ? Abnormal ?Final result ? MANUAL DIFFERENTIAL[[id number]] ? Abnormal ?Final result ? Please view results for these tests on the individual orders. Jason Nash MD [facility] - [facility] Performing Organization Address City/State/[facility] Co de Phone Number [facility] [address] [place] [address], [facility] * XR CHEST 1VW PORTABLE (09/09/2017 3:48 AM CDT) Anatomical Region Laterality Modality Chest Other Impressions 09/09/2017 1:59 PM CDT IMPRESSION: A feeding tube extends to the stomach and beyond the fxbvq-wi-ukgd. A left pleural pigtail catheter is unchanged [...] dictated by Rohan Hopkins MD (vice president of development). Dr. VIBHA Stringer M.D. have personally reviewed [...] extends to the stomach and beyond the hvziv-uv-mztn. A leftpleural pigtail catheter is unchanged in [...] dictated by Rohan Hopkins MD (vice president of development). Dr. VIBHA Stringer M.D. have personally reviewed and interpreted thisexamination/study. This report was electronically signed by VIBHA PHELPS M.D. on 09/09/20171:59 PM . Jason Nash MD DIAGNOSTIC IMAGING O RDERABLES * (ABNORMAL) GLUCOSE ACCUCHECK (09/09/2017 12:56 AM CDT) Glucose, Fingerstick 136(H) 70-115mg/d L mg/dL [facility] (BEAKER) Comment:Last Turner: CARLOS CARTAGENA 09/09/2017 12:5 6 AM CDT Jason Nash MD LAB - CHEMISTRY ROYCE KLINE Performing Organization Address [facility]/ZIP Co de Phone Number [facility] ([facility]) * (ABNORMAL) GLUCOSE ACCUCHECK (09/08/2017 6:08 PM CDT) Glucose, Fingerstick 130(H) 70-115mg/d L mg/dL [facility] ([facility]) Comment:Last Turner: MARCELL [facility] CROOKS 09/08/2017 6:08 PM CDT Jason Nash MD LAB - CHEMISTRY ROYCE KLINE Performing Organization Address [facility] Co de Phone Number [facility] ([facility]) * (ABNORMAL) GLUCOSE ACCUCHECK (09/08/2017 12:39 PM CDT) Glucose, Fingerstick 120(H) 70-115mg/d L mg/dL [facility] ([facility]) Comment:Last Turner: MICHELA PENNINGTON 09/08/2017 12:3 9 PM CDT Jason Nash MD LAB - CHEMISTRY ROYCE KLINE Performing Organization Address [facility] Co de Phone Number [facility] ([facility]) * LD BODY FLUID ([facility] ONLY) (09/08/2017 12:35 PM CDT) LD Fluid 172 Not Established For Fluids Units/L [facility] Comment:The reference range and other method performance specifications have not been established for this fluid. The test result must be integrated into the clinical context for interpretation. Pleural fluid specimen (specimen) PLEURAL FLUID / Unknown 09/08/2017 12:35 PM CDT 09/08/2017 12:48 PM CDT Jason Nash MD LAB - BODY FLUID ORD SP Performing Organization Address City/[facility]/ZIP Co de Phone Number [address] [phone] * GLUCOSE BODY FLUID ([facility] ONLY) (09/08/2017 12:35 PM CDT) Glucose Fluid 145 Not Established For Fluids mg/dL [facility] Comment:The reference range and other method performance specifications have not been established for this fluid. The test result must be integrated into the clinical context for interpretation. Pleural fluid specimen (specimen) PLEURAL FLUID / Unknown 09/08/2017 12:35 PM CDT 09/08/2017 12:48 PM CDT Jason Nash MD LAB - BODY FLUID ORD ERABLES Performing Organization Address [facility]/ZIP Co de Phone Number [address] [phone] * PROTEIN FLUID (09/08/2017 12:35 PM CDT) Protein Fluid 1.5 Not Established For Fluids g/dL [facility] Comment:The reference range and other method performance specifications have not been established for this fluid. The test result must be integrated into the clinical context for interpretation. Pleural fluid specimen (specimen) PLEURAL FLUID / Unknown 09/08/2017 12:35 PM CDT 09/08/2017 12:48 PM CDT Jason Nash MD LAB - BODY FLUID ORD ERABLES Performing Organization Address [facility] Co de Phone Number [address] [phone] * (ABNORMAL) CELL COUNT FLUID (09/08/2017 12:35 PM CDT) Color Fluid [place](A) Colorless, Straw [facility] Clarity Fluid Slighty Cloudy(A) Clear [facility] Volume Fluid 1.0 mL [facility] WBC Fluid 161 Reference Range Not Established /uL [facility] RBC Fluid 11,000 Reference Range Not Established /uL [facility] Differential Manual Differential to follow. [facility] Pleural fluid specimen (specimen) PLEURAL FLUID / Unknown 09/08/2017 12:35 PM CDT 09/08/2017 12:48 PM CDT [facility] - 09/08/2017 1:12 PM CDT No established reference ranges for WBC and RBC body fluid count. Jason Nash MD LAB - BODY FLUID ORD ERABLES Performing Organization Address [facility] de Phone Number [address] [phone] * DIFFERENTIAL MANUAL FLUID (09/08/2017 12:35 PM CDT) Segs % Fluid 60 % [facility] Lymphocytes % Fluid 37 % [facility] Monocytes % Fluid 3 % [facility] Pleural fluid specimen (specimen) PLEURAL FLUID / Unknown 09/08/2017 12:35 PM CDT 09/08/2017 12:48 PM CDT [facility] - 09/08/2017 2:08 PM CDT No reference ranges established for body fluid differential. Jason Nash MD LAB - BODY FLUID ORD SP Performing Organization Address [facility] Co de Phone Number [address] [phone] * CELL COUNT W DIFFERENTIAL FLUID (09/08/2017 12:35 PM CDT) Pleural fluid specimen (specimen) PLEURAL FLUID / Unknown 09/08/2017 12:35 PM CDT [facility] - 09/08/2017 2:08 PM CDT The following orders were created for panel order Body fluid cell count with diff. Procedure ? Abnormality ? Status ? --------- ? ------ ? Body fluid cell count wit...[[id number]] ??Abnormal ?Final result ? MANUAL DIFFERENTIAL FLUID[[id number]] ? Final result ? Please view results for these tests on the individual orders. Jason Nash MD LAB - BODY FLUID RAFFY [place]OW[place] Performing Organization Address [facility] de Phone Number [facility] [address] * PH FLUID (09/08/2017 12:33 PM CDT) pH Fluid 7.610 Not Established For Fluids [facility] Comment:The reference range and other method performance specifications have not been established for this fluid. The test result must be integrated into the clinical context for interpretation. Fluid specimen (specimen) PLEURAL FLUID / Unknown 09/08/2017 12:33 PM CDT 09/08/2017 12:47 PM CDT Jason Nash MD LAB - BODY FLUID [place]Y [place] Performing Organization Address [facility] de Phone Number [facility] [address] [place] [address] * CULTURE AEROBIC (09/08/2017 12:32 PM CDT) Culture Aerobic No Growth [facility] Gram Stain light Polymorphonuclear Cells [facility] Gram Stain No Organism Seen [facility] Pleural fluid specimen (specimen) PLEURAL FLUID / Unknown 09/08/2017 12:32 PM CDT 09/08/2017 12:48 PM CDT Narrative [facility] - 09/15/2017 11:53 AM CDT Specimen Type->Pleural Fluid Resulting Lab: ?? [facility] [address] [place] [address] PH: [phone] Jason Nash MD LAB - MICROBIOLOGY O RDSP [address] [phone] * XR CHEST 1VW PORTABLE (09/08/2017 12:23 PM CDT) Anatomical Region Laterality Modality Chest Other Impressions 09/09/2017 8:58 AM CDT IMPRESSION: A feeding tube extends to the stomach and beyond the xmdup-mr-wscm. A tube projecting over the mediastinum to [...] Dictated by Omi Silverio MD (vice president of development). I, Dr. SILAS NGUYỄN MD have personally [...] extends to the stomach and beyond the gbwso-iq-szez. A tubeprojecting over the mediastinum to the [...] Dictated by Omi Silverio MD (vice president of development). IDr. SILAS MD have personally reviewed and [...] the esophagus and tip is off the tzkjd-gq-emgm. Small right and moderate to large left pleural effusions with associated atelectasis and/or airspace disease is increase on the left. There are bilateral interstitial opacities likely representing pulmonary edema or pneumonia. No pneumothorax is identified. The cardiac silhouette is partially obscured. Report dictated by Rohan Hopkins M.D. (vice president of development). I, Dr. VIBHA PHELPS M.D. have personally [...] of the esophagusand tip is off the mxrnw-io-hlgf. Small right and moderate to large left pleural effusions with associatedatelectasis and/or airspace disease is increase on the left. There arebilateral interstitial opacities likely representing pulmonary edema orpneumonia. No pneumothorax is identified. The cardiac silhouette is partially obscured. Report dictated by Rohan Hopkins M.D. (vice president of development). I, Dr. VIBHA PHELPS M.D. have personally reviewed and interpreted thisexamination/study. This report was electronically signed by VIBHA PHELPS M.D. on 09/08/201712:19 PM . Jason Nash MD DIAGNOSTIC IMAGING O RDERABLES * (ABNORMAL) GLUCOSE ACCUCHECK (09/08/2017 5:37 AM CDT) Glucose, Fingerstick 149(H) 70-115mg/d L mg/dL [facility] (BEAKER) Comment:Last Turner: WESTON COSTA 09/08/2017 5:37 AM CDT Jason Nash MD LAB - CHEMISTRY RYOCE KLINE Performing Organization Address [facility] Co de Phone Number [facility] (BEAKER) * (ABNORMAL) GLUCOSE ACCUCHECK (09/08/2017 12:27 AM CDT) Glucose, Fingerstick 143(H) 70-115mg/d L mg/dL [facility] (BEAKER) Comment:Last Turner: WESTON COSTA 09/08/2017 12:2 7 AM CDT Jason Nash MD LAB - CHEMISTRY ROYCE KLINE Performing Organization Address [facility]/State/ZIP Co de Phone Number [facility] (BEAKER) * (ABNORMAL) GLUCOSE ACCUCHECK (09/07/2017 4:22 PM CDT) Glucose, Fingerstick 150(H) 70-115mg/d L mg/dL [facility] (BEAKER) Comment:Last Turner: MARCELL RIVERA 09/07/2017 4:22 PM CDT Jason Nash MD LAB - CHEMISTRY ROYCE KLINE [facility] Organization Address City/State/ZIP Co de [...] Dictated by Keaton Gómez MD (vice president of development). I, Dr. Jason NAIK M.D. have personally [...] Dictated by Keaton Gómez MD (vice president of development). I, Dr. Jasno NAIK M.D. have personally reviewed and interpreted thisexamination/study. This report was electronically signed by Jason NAIK M.D. on09/07/2017 3:14 PM . Jason Nash MD CT ORDERABLES * (ABNORMAL) GLUCOSE ACCUCHECK (09/07/2017 11:43 AM CDT) Glucose, Fingerstick 140(H) 70-115mg/d L mg/dL [facility] ([facility]AKER) Comment:Last Turner: MARCELL SOLONIE 09/07/2017 11:4 3 AM CDT Jason Nash MD LAB - CHEMISTRY ROYCE KLINE Performing Organization Address City/[facility]/ZIP Co de Phone Number Jeannette CHAPMAN ([place]) * (ABNORMAL) GLUCOSE ACCUCHECK (09/07/2017 5:29 AM CDT) Glucose, Fingerstick 171(H) 70-115mg/d L mg/dL [facility] ([place]) Comment:Last Turner: FAISAL MAO 09/07/2017 5:29 AM CDT Jason Nash MD LAB - CHEMISTRY ROYCE KLINE Performing Organization Address [facility] Co de Phone Number AMINA CHAPMAN [...] the esophagus and tip is off the bdeug-iy-mied. Small right and moderate left pleural effusions with associated atelectasis and/or airspace disease is unchanged. There are bilateral interstitial and airspace opacities likely representing pulmonary edema or pneumonia. No pneumothorax is identified. The cardiac silhouette is partly obscured. Report dictated by Rohan Hopkins M.D. (vice president of development). I, Dr. SULLY RUANO M.D. have personally [...] the esophagus and tip is off the rdbak-ry-pcom. Small right and moderate left pleural effusions with associatedatelectasis and/or airspace disease is unchanged. There are bilateralinterstitial and airspace opacities likely representing pulmonary edema orpneumonia. No pneumothorax is identified. The cardiac silhouette is partly obscured. Report dictated by oRhan Hopkins M.D. (vice president of development). I, Dr. SULLY RUANO M.D. have personally reviewed and interpretedthis examination/study. This report was electronically signed by SULLY RUANO M.D. on09/07/2017 12:35 PM . Jason Nash MD DIAGNOSTIC IMAGING O RDERABLES * PTT [facility] (09/07/2017 4:28 AM CDT) APTT 32.8 23.0 - 38.4 Seconds [facility] Comment:Suggested therapeuti c range for full dose I.V. heparin therapy for venous thromboembolism is 66.0-91.0 seconds. Blood specimen (specimen) BLOOD SPECIMEN / Unknown 09/07/2017 4:28 AM CDT 09/07/2017 4:35 AM CDT Narrative [facility] - 09/07/2017 4:59 AM CDT Please ensure that the aPTT specimen is received in the clinical lab within 1 hour of collection if it is used for therapeutic heparin monitoring. Processing of heparinized specimens older than 1 hour may result in inaccurate test results. Is patient on Heparin, Argatroban or Dabigatran?->N Jason Nash MD LAB - COAGULATION OR DERABLES [address] [phone] * (ABNORMAL) PT-INR [facility] (09/07/2017 4:28 AM CDT) PT 18.8(H) 12.1 - 14.8 Seconds [facility] INR 1.6 See Comment [facility] Comment: Suggested therapeutic range for low-intensity coumadin therapy for venous thromboembolism prophylaxis is an INR of 2.0-3.0. ??For high risk patients (Mitral Valve Prosthesis, Atrial Fibrillation, history of TIA/stroke), suggested prophylactic therapeutic range is an INR of 2.5-3.5. Blood specimen (specimen) BLOOD SPECIMEN / Unknown 09/07/2017 4:28 AM CDT 09/07/2017 4:35 AM CDT Narrative [facility] - 09/07/2017 4:58 AM CDT Is patient on Heparin, Argatroban or Dabigatran?->N Jason Nash MD LAB - COAGULATION OR DERABLES Performing Organization Address City/State/[facility] de Phone Number [address] [phone] * PROCALCITONIN LEVEL (09/07/2017 4:28 AM CDT) Procalcitonin 0.47 [facility] Blood specimen (specimen) BLOOD SPECIMEN / Unknown 09/07/2017 4:28 AM CDT 09/07/2017 4:35 AM CDT Narrative [facility] - 09/07/2017 5:53 AM CDT The [...] Change in Procalcitonin Calculator is available at [email or web address]-GJH-Wrjrbmnxhj.FIA Formula E ?? If clinical picture has not improved and PCT remains high, reevaluate and consider treatment failure or other causes. Jason Nash MD LAB - CHEMISTRY ROYCE KLINE [facility] [address] [place] [address] * (ABNORMAL) BASIC METABOLIC PANEL (CALCIUM TOTAL) (09/07/2017 4:28 AM CDT) BUN 24 7 - 26 mg/dL [facility] Creatinine 0.7 0.6 - 1.2 mg/dL [facility] Sodium 140 136 - 145 mmol/L [facility] Potassium 4.6(H) 3.5 - 4.5 mmol/L [facility] Chloride 106 98 - 107 mmol/L [facility] CO2 25 22 - 29 mmol/L [facility] Glucose 156(H) 70 - 115 mg/dL [facility] Calcium 8.4 8.4 - 10.2 mg/dL [facility] Anion Gap 14 8 - 18 [facility] BUN/Creatinine Ratio 34(H) 7 - 23 [facility] Osmolality Calculated 297 270 - 300 mOsm/kg [facility] eGFR >60 >60 mL/min/1.7 3 m2 [facility] Blood specimen (specimen) BLOOD SPECIMEN / Unknown 09/07/2017 4:28 AM CDT 09/07/2017 4:35 AM CDT Jason Nash MD LAB - CHEMISTRY ROYCE KLINE Performing Organization Address [facility]/ZIP Co de Phone Number [address] [phone] * (ABNORMAL) MAGNESIUM BLOOD (09/07/2017 4:28 AM CDT) Magnesium 1.4(L) 1.6 - 2.6 mg/dL [facility] Blood specimen (specimen) BLOOD SPECIMEN / Unknown 09/07/2017 4:28 AM CDT 09/07/2017 4:35 AM CDT Jason Nash MD LAB - CHEMISTRY ROYCE KLINE Performing Organization Address [facility]/ZIP Co de Phone Number [address] [phone] * PHOSPHORUS BLOOD (09/07/2017 4:28 AM CDT) Phosphorus 2.9 2.3 - 4.7 mg/dL [facility] Blood specimen (specimen) BLOOD SPECIMEN / Unknown 09/07/2017 4:28 AM CDT 09/07/2017 4:35 AM CDT Jason Nash MD LAB - CHEMISTRY ROYCE KLINE Performing Organization Address [facility] Co de Phone Number [address] [phone] * (ABNORMAL) CBC W AUTO DIFFERENTIAL (09/07/2017 4:28 AM CDT) WBC 10.1 3.5 - 10.5 10? 3 /uL [facility] Comment:Results are confirme d by repeat analysis. RBC 2.72(L) 4.30 - 5.70 10? 6 /uL [facility] Hemoglobin 7.4(L) 13.5 - 17.5 g/dL [facility] Hematocrit 25.1(L) 39.0 - 50.0 % [facility] MCV 92.3 81.0 - 97.0 fL [facility] MCH 27.2(L) 28.0 - 34.0 pg [facility] MCHC 29.5(L) 32.0 - 36.0 g/dL [facility] Platelet Count 313 150 - 400 10? 3 /uL [facility] RDW-SD 61.9(H) 36.0 - 50.0 fL [facility] RDW-CV 19.0(H) 11.2 - 14.8 % [facility] MPV 12.0 9.3 - 12.8 fL [facility] nRBC Absolute 0.03(H) 0 10? 3 /uL [facility] nRBC Auto 0.3(H) 0 /100 WBC [facility] Neutrophils % 90.7(H) 35.0 - 70.0 % [facility] Lymphocytes % 4.1(L) 19.7 - 55.1 % [facility] Monocytes % 5.0 3.0 - 15.0 % [facility] Eosinophils % 0.0 0.0 - 6.0 % [facility] Basophil % 0.2 0.0 - 1.5 % [facility] Neutrophils Absolute 9.1(H) 1.6 - 7.0 10? 3 /uL [facility] Lymphocyte Absolute 0.4(L) 0.8 - 2.9 10? 3 /uL [facility] Monocytes Absolute 0.50 0.14 - 0.66 10? 3 /uL [facility] Eosinophils Absolute 0.00 0.00 - 0.22 10? 3 /uL [facility] Basophils Absolute 0.02 0.00 - 0.06 10? 3 /uL [facility] Immature Granulocytes % 1.4(H) 0.0 - 1.0 % [facility] Blood specimen (specimen) BLOOD SPECIMEN / Unknown 09/07/2017 4:28 AM CDT 09/07/2017 4:35 AM CDT Jason Nash MD LAB - HEMATOLOGY ORD ERABLES [facility] [address] [place] [address] * CBC W AUTO DIFFERENTIAL (09/07/2017 4:28 AM CDT) Blood specimen (specimen) BLOOD SPECIMEN / Unknown 09/07/2017 4:28 AM CDT Narrative [facility] - 09/07/2017 4:43 AM CDT The following orders were created for panel order CBC w Differential. Procedure ? Abnormality ? Status ? --------- ? ------ ? CBC WITH DIFFERENTIAL[[id number]] ? Abnormal ?Final result ? Please view results for these tests on the individual orders. Jason Nash MD LAB - HEMATOLOGY ORD SP Performing Organization Address [facility] Co de Phone Number [facility] [address] * (ABNORMAL) GLUCOSE ACCUCHECK (09/07/2017 12:08 AM CDT) Pathologist [facility] Glucose, Fingerstick 143(H) 70-115mg/d L mg/dL [facility] ([place]) Comment:Last Turner: FAISAL MAO 09/07/2017 12:0 8 AM CDT Jason Nash MD LAB - CHEMISTRY ROYCE KLINE Performing Organization Address [facility] Co de Phone Number [facility] [place]) * EKG 12-LEAD (09/07/2017 12:00 AM CDT) Pathologist [facility] EKG [facility] Comment: Exam Date/Time: ?? Sep [...] noted Reconfirmed by Mauri ROY, FREDA ([id number]), field map editor Robi Pavon ([id number]) on 09/10/2017 6:07:09 PM Also confirmed by Mauri ROY, FREDA ([id number]), field map editor Robi Pavon ([id number]) ??on 09/10/2017 6:07:41 PM Referred By: REFERRING NO ? Confirmed By:FREDA ROY M.D. 09/07/2017 Rebecca Melendez [facility] ECG ORDERABLES [facility] * XR ABDOMEN KUB PORTABLE [...] dictated by Rohan Hopkins MD (vice president of development). I, Dr. SULLY RUANO M.D. have personally [...] dictated by Rohan Hopkins MD (vice president of development). I, Dr. SULLY RUANO M.D. have personally reviewed and interpretedthis examination/study. This report was electronically signed by SULLY RUANO M.D. on09/07/2017 12:20 PM . Rebecca Melendez CHOIRMASTER-GLUELINE WORKER DIAGNOSTIC IMAGIN G ORDERABLES * (ABNORMAL) BLOOD GASES ART COMPLETE [facility] (09/06/2017 4:21 PM CDT) pH Arterial 7.38 7.35 - 7.45 [facility] pCO2 Arterial 47(H) 35 - 45 mmHg [facility] pO2 Arterial 169(H) 71 - 95 mmHg [facility] HCO3 Arterial 27.0(H) 22.0 - 26.0 mmol/L [facility] TCO2 Arterial 28.4 25.0 - 29.0 mmol/L [facility] Base Excess Arterial 1.5 -2.0 - 2.0 mmol/L [facility] Hemoglobin Arterial 8.6(L) 13.5 - 17.5 g/dL [facility] Oxyhemoglobin Arterial 97.9 95.0 - 100.0 % [facility] Carboxyhemoglobin 0.3 0.0 - 3.0 % [facility] Methemoglobin 0.3 0.0 - 2.0 % [facility] FI O2 Arterial 50.0 % [facility] Ionized Calcium Whole Blood 1.14 mmol/L [facility] Adjusted Ionized Calcium 1.13(L) 1.19 - 1.34 mmol/L [facility] Sodium Whole Blood 140 135 - 145 mmol/L [facility] Potassium Whole Blood 4.2 3.5 - 5.5 mmol/L [facility] Chloride Whole Blood 109 101 - 111 mmol/L [facility] Glucose Whole Blood 134(H) 70 - 110 mg/dL [facility] Lactic Acid Whole Blood 2.5 0.5 - 3.4 mmol/L [facility] Blood specimen (specimen) 09/06/2017 4:21 PM CDT 09/06/2017 4:30 PM CDT Jason Nash MD LAB - BLOOD GASES OR DERABLES Performing Organization Address City/[facility]/ZIP Co de Phone Number [facility] [address] [phone] * (ABNORMAL) GLUCOSE ACCUCHECK (09/06/2017 4:19 PM CDT) Glucose, Fingerstick 128(H) 70-115mg/d L mg/dL [facility] (BEAKER) Comment:Last Turner: STONE ALI 09/06/2017 4:19 PM CDT Jason Nash MD LAB - CHEMISTRY ORDE RABLES Performing Organization Address [facility] Co de Phone Number [facility] (BEAKER) * XR CHEST 1VW PORTABLE (09/06/2017 2:48 PM CDT) Anatomical Region Laterality Modality Chest Other Impressions 09/06/2017 4:13 PM CDT IMPRESSION: Right internal jugular approach central venous catheters superimposes the superior vena cava. Endotracheal tube terminates at the mid thoracic trachea. A gastric tube and a feeding tube follows the course of the esophagus and tips are off the [id number]. There is a moderate left pleural effusion, intervally decreased. There is a small right pleural effusion, unchanged. There are bilateral interstitial and airspace opacities likely representing pulmonary edema or pneumonia. No pneumothorax is identified. The cardiac silhouette is partly obscured. Report dictated by Rohan Hopkins M.D. (vice president of development). I, Dr. SILAS NGUYỄN MD have personally [...] of theesophagus and tips are off the [id number]. There is a moderate left pleural effusion, intervally decreased. There lisa small right pleural effusion, unchanged. There are bilateralinterstitial and airspace opacities likely representing pulmonary edema orpneumonia. No pneumothorax is identified. The cardiac silhouette is partly obscured. Report dictated by Rohan Hopkins M.D. (vice president of development). I, Dr. SILAS NGUYỄN MD have personally reviewed and interpreted thisexamination/study. This report was electronically signed by SILAS NGUYỄN MD on 09/06/20174:13 PM . Jason Nash MD DIAGNOSTIC IMAGING O RIO * CULTURE LEGIONELLA (09/06/2017 2:05 PM CDT) Culture Legionella No Growth Legionella 1 week. [facility] Bronchial Washings SPECIMEN FROM LUNG OBTAINED BY BRONCHIAL WASHING PROCEDURE / Unknown 09/06/2017 2:05 PM CDT 09/06/2017 2:23 PM CDT Narrative [facility] - 09/13/2017 8:55 AM CDT Specimen Type->Bronchial Washings Resulting Lab: ?? [facility] [address] [place] [address] PH: [phone] Jason Nash MD LAB - MICROBIOLOGY O RDSP [facility] [address] [place] [address], [facility] [phone] * CULTURE AEROBIC (09/06/2017 2:05 PM CDT) Culture Aerobic No Growth [facility] Gram Stain Moderate White Blood Cells [facility] Gram Stain No Organism Seen [facility] Bronchial Washings SPECIMEN FROM LUNG OBTAINED BY BRONCHIAL WASHING PROCEDURE / Unknown 09/06/2017 2:05 PM CDT 09/06/2017 2:23 PM CDT [facility] - 09/08/2017 11:09 AM CDT Specimen Type->Bronchial Washings Resulting Lab: ?? [facility] [address] [place] [address] PH: [phone] Jason Nash MD LAB - MICROBIOLOGY O RDERABLES [address] [phone] * CULTURE BLOOD (09/06/2017 12:35 PM CDT) Culture Blood No Growth at 5 days [facility] Blood specimen (specimen) DEVICE / Unknown 09/06/2017 12:35 PM CDT 09/06/2017 12:44 PM CDT [facility] - 09/11/2017 4:45 PM CDT Resulting Lab: ?? [facility] [address] [place] [address] PH: [phone] Bandar Mansfield MD LAB - MICROBIOLOGY ORDERABLES [address] [phone] * CULTURE BLOOD (09/06/2017 12:11 PM CDT) Culture Blood No Growth at 5 days [facility] Blood specimen (specimen) (Blood Line - Arterial) 09/06/2017 12:11 PM CDT 09/06/2017 12:16 PM CDT [facility] - 09/11/2017 4:30 PM CDT Draw 15 minutes after Culture 1 from a different site Resulting Lab: ?? [facility]CROBIOLOG[facility] [address] [place] [address] PH: [phone] Bandar Mansfield MD LAB - MICROBIOLOGY ORDERABLES [facility] [address] [place] [address], [facility] [phone] * (ABNORMAL) BLOOD GASES ART COMPLETE [facility] (09/06/2017 12:11 PM CDT) pH Arterial 7.28(L) 7.35 - 7.45 [facility] pCO2 Arterial 55(H) 35 - 45 mmHg [facility] pO2 Arterial 152(H) 71 - 95 mmHg [facility] HCO3 Arterial 25.0 22.0 - 26.0 mmol/L [facility] TCO2 Arterial 26.7 25.0 - 29.0 mmol/L [facility] Base Excess Arterial -2.0 -2.0 - 2.0 mmol/L [facility] Hemoglobin Arterial 8.6(L) 13.5 - 17.5 g/dL [facility] Oxyhemoglobin Arterial 97.6 95.0 - 100.0 % [facility] Carboxyhemoglobin 0.3 0.0 - 3.0 % [facility] Methemoglobin 0.6 0.0 - 2.0 % [facility] FI O2 Arterial 100.0 % [facility] Ionized Calcium Whole Blood 1.18 mmol/L [facility] Adjusted Ionized Calcium 1.12(L) 1.19 - 1.34 mmol/L [facility] Sodium Whole Blood 142 135 - 145 mmol/L [facility] Potassium Whole Blood 3.8 3.5 - 5.5 mmol/L [facility] Chloride Whole Blood 106 101 - 111 mmol/L [facility] Glucose Whole Blood 166(H) 70 - 110 mg/dL [facility] Lactic Acid Whole Blood 2.8(HH) 0.5 - 2.0 mmol/L [facility] Comment:Critical value(s) bailey ve been verified and called to and read back by Emma Ledezma at 1223 on 09/06/17. Blood specimen (specimen) 09/06/2017 12:11 PM CDT 09/06/2017 12:16 PM CDT Bandar Mansfield MD LAB - BLOOD GASES ORDERABLES Performing Organization Address [facility] Co de Phone Number [address] [phone] * (ABNORMAL) DIGOXIN LEVEL (09/06/2017 12:02 PM CDT) Digoxin <0.3(L) 0.8 - 2.0 ng/mL [facility] Comment: The summer intern of [employer] has stated that no immunoassay technique is suitable for quantitating digoxin in plasma/serum from patients on antibody fragment therapy. ? Blood specimen (specimen) BLOOD SPECIMEN / Unknown 09/06/2017 12:02 PM CDT 09/06/2017 12:08 PM CDT Bandar Mansfield MD LAB - CHEMISTRY OR DERABLES Performing Organization Address [facility] Co de Phone Number [address] [phone] * (ABNORMAL) PTT [facility] (09/06/2017 11:57 AM CDT) APTT 46.4(H) 23.0 - 38.4 Seconds [facility] Comment:Suggested therapeuti c range for full dose I.V. heparin therapy for venous thromboembolism is 66.0-91.0 seconds. Blood specimen (specimen) BLOOD SPECIMEN / Unknown 09/06/2017 11:57 AM CDT 09/06/2017 12:08 PM CDT Narrative [facility] - 09/06/2017 12:21 PM CDT Please ensure that the aPTT specimen is received in the clinical lab within 1 hour of collection if it is used for therapeutic heparin monitoring. Processing of heparinized specimens older than 1 hour may result in inaccurate test results. Is patient on Heparin, Argatroban or Dabigatran?->N Bandar Mansfield MD LAB - COAGULATION ORDERABLES [address] [phone] * (ABNORMAL) PT-INR [facility] (09/06/2017 11:57 AM CDT) Pathologist [facility] PT 24.5(H) 12.1 - 14.8 Seconds [facility] INR 2.2 See Comment [facility] Comment: Suggested therapeutic range for low-intensity coumadin therapy for venous thromboembolism prophylaxis is an INR of 2.0-3.0. ??For high risk patients (Mitral Valve Prosthesis, Atrial Fibrillation, history of TIA/stroke), suggested prophylactic therapeutic range is an INR of 2.5-3.5. Blood specimen (specimen) BLOOD SPECIMEN / Unknown 09/06/2017 11:57 AM CDT 09/06/2017 12:08 PM CDT Narrative [facility] - 09/06/2017 12:20 PM CDT Is patient on Heparin, Argatroban or Dabigatran?->N Bandar Mansfield MD LAB - COAGULATION ORDERABLES Performing Organization Address [facility]/ZIP Co de Phone Number [address] [phone] * TROPONIN I (09/06/2017 11:57 AM CDT) Pathologist [facility] Troponin I 0.027 <0.032 ng/mL [facility] Blood specimen (specimen) BLOOD SPECIMEN / Unknown 09/06/2017 11:57 AM CDT 09/06/2017 12:08 PM CDT Bandar Mansfield MD LAB - CHEMISTRY OR DERABLES [address] [phone] * (ABNORMAL) COMPREHENSIVE METABOLIC PANEL (09/06/2017 11:57 AM CDT) BUN 21 7 - 26 mg/dL [facility] Creatinine 0.7 0.6 - 1.2 mg/dL [facility] Sodium 143 136 - 145 mmol/L [facility] Potassium 3.8 3.5 - 4.5 mmol/L [facility] Chloride 108(H) 98 - 107 mmol/L [facility] CO2 20(L) 22 - 29 mmol/L [facility] Glucose 170(H) 70 - 115 mg/dL [facility] Calcium 8.5 8.4 - 10.2 mg/dL [facility] Protein Total 6.2 6.0 - 8.3 g/dL [facility] Albumin 1.8(L) 3.4 - 5.0 g/dL [facility] Bilirubin Total 0.3 0.2 - 1.2 mg/dL [facility] Alkaline Phosphatase 204(H) 40 - 150 Units/L [facility] ALT 10 0 - 55 Units/L [facility] AST 21 5 - 34 Units/L [facility] Anion Gap 19(H) 8 - 18 [facility] BUN/Creatinine Ratio 30(H) 7 - 23 [facility] Osmolality Calculated 303(H) 270 - 300 mOsm/kg [facility] Albumin/Globulin Ratio 0.4(L) 1.1 - 2.3 [facility] eGFR >60 >60 mL/min/1.7 3 m2 [facility] Blood specimen (specimen) BLOOD SPECIMEN / Unknown 09/06/2017 11:57 AM CDT 09/06/2017 12:08 PM CDT Bandar Mansfield MD LAB - CHEMISTRY OR DERABLES Performing Organization Address City/State/[facility] Co de Phone Number [address] [phone] * (ABNORMAL) CBC W AUTO DIFFERENTIAL (09/06/2017 11:57 AM CDT) WBC 27.8(H) 3.5 - 10.5 10? 3 /uL [facility] Comment:All CBC parameters h ave been checked. RBC 2.99(L) 4.30 - 5.70 10? 6 /uL [facility] Hemoglobin 8.2(L) 13.5 - 17.5 g/dL [facility] Hematocrit 28.5(L) 39.0 - 50.0 % [facility] MCV 95.3 81.0 - 97.0 fL [facility] MCH 27.4(L) 28.0 - 34.0 pg [facility] MCHC 28.8(L) 32.0 - 36.0 g/dL [facility] Platelet Count 432(H) 150 - 400 10? 3 /uL [facility] RDW-SD 64.7(H) 36.0 - 50.0 fL [facility] RDW-CV 19.1(H) 11.2 - 14.8 % [facility] MPV 12.1 9.3 - 12.8 fL [facility] nRBC Absolute 0.09(H) 0 10? 3 /uL [facility] nRBC Auto 0.3(H) 0 /100 WBC [facility] Neutrophils % 92.0(H) 35.0 - 70.0 % [facility] Lymphocytes % 5.2(L) 19.7 - 55.1 % [facility] Monocytes % 2.6(L) 3.0 - 15.0 % [facility] Eosinophils % 0.1 0.0 - 6.0 % [facility] Basophil % 0.1 0.0 - 1.5 % [facility] Neutrophils Absolute 25.6(H) 1.6 - 7.0 10? 3 /uL [facility] Lymphocyte Absolute 1.5 0.8 - 2.9 10? 3 /uL [facility] Monocytes Absolute 0.71(H) 0.14 - 0.66 10? 3 /uL [facility] Eosinophils Absolute 0.03 0.00 - 0.22 10? 3 /uL [facility] Basophils Absolute 0.04 0.00 - 0.06 10? 3 /uL [facility] Immature Granulocytes % 3.0(H) 0.0 - 1.0 % [facility] Blood specimen (specimen) BLOOD SPECIMEN / Unknown 09/06/2017 11:57 AM CDT 09/06/2017 12:08 PM CDT Bandar Mansfield MD LAB - HEMATOLOGY O RDERABLES [facility] [address] [phone] * (ABNORMAL) LACTIC ACID BLOOD (09/06/2017 11:57 AM CDT) Lactic Acid-Stat 3.3(HH) 0.5 - 2.0 mmol/L [facility] Comment:RESULTS CALLED TO AN D READ BACK BY DONTAE MACIEL AT 1:07 PM, 09/06/2017 Blood specimen (specimen) BLOOD SPECIMEN / Unknown 09/06/2017 11:57 AM CDT 09/06/2017 12:08 PM CDT Bandar Mansfield MD LAB - CHEMISTRY OR DERABLES Performing Organization Address [facility] de Phone Number [facility] [address] [phone] * CBC W AUTO DIFFERENTIAL (09/06/2017 11:57 AM CDT) Blood specimen (specimen) BLOOD SPECIMEN / Unknown 09/06/2017 11:57 AM CDT Narrative [facility] - 09/06/2017 12:16 PM CDT The following orders were created for panel order CBC w Differential. Procedure ? Abnormality ? Status ? --------- ? ------ ? CBC WITH DIFFERENTIAL[[id number]] ? Abnormal ?Final result ? Please view results for these tests on the individual orders. Bandar Mansfield MD LAB - HEMATOLOGY O RDERABLES Performing Organization Address [facility] Co de Phone Number [facility] [address] [place] [address], [facility] * XR CHEST 1VW PORTABLE (09/06/2017 [...] dictated by Rohan Hopkins M.D. (vice president of development). Dr. VIBHA Stringer M.D. have personally reviewed [...] dictated by Rohan Hopkins M.D. (vice president of development). I, Dr. VIBHA PHELPS M.D. have personally reviewed and interpreted thisexamination/study. This report was electronically signed by VIBHA PHELPS M.D. on 09/07/201712:31 PM . Bandar Mansfield MD DIAGNOSTIC IMAGING ORDERABLES * EKG 12-LEAD (09/06/2017 12:00 AM CDT) EKG [facility] Comment: Exam Date/Time: ?? Sep [...] bpm Confirmed by MD Jaime, Aneta ([id number]), field map editor Robi Pavon ([id number]) on 09/10/2017 5:58:12 PM Referred By: REFERRING NO ? Confirmed By:Aneta Sandoval MD 09/06/2017 Bandar Mansfield MD ECG ORDERABLES [facility] documented in this encounter Visit [...] 0200 ($ Given - Provider: Jadon Araujo DEVELOPER ANALYST)0505 ($ Given - Provider: Jadon Araujo DEVELOPER ANALYST)0840 ($ Given - Provider: Taylor Coleman [facility])1341 ($ Given - Provider: Taylor Coleman DEVELOPER ANALYST)1725 ($ Given - Provider: Taylor Coleman DEVELOPER ANALYST)2035 ($ Given - Provider: Jadon Araujo DEVELOPER ANALYST) 0141 ($ Given - Provider: Jadon Araujo RCP)0611 ($ Given - Provider: Jadon Araujo RCP)0839 ($ Given - Provider: Taylor Coleman DEVELOPER ANALYST)1259 ($ Given - Provider: Taylor Coleman DEVELOPER ANALYST)1650 ($ Given - Provider: Taylor Coleman DEVELOPER ANALYST)2019 ($ Given - Provider: Michael Callahan DEVELOPER ANALYST) 0008 ($ Given - Provider: Michael Callahan DEVELOPER ANALYST)0410 ($ Given - Provider: Michael Callahan DEVELOPER ANALYST)0825 ($ Given - Provider: Taylor Coleman RCP)1252 [...] Per Administration Instructions)1800 (Not Administered - Provider: Nao Reyes RN - Reason: Per Administration Instructions) [...] Gonzalez, DONTAE)2355 ($ Given - Provider: Malaika Gonzalez, RN) 0450 ($ Given - Provider: Malaika [...] documented as of this encounter Care Teams Edge Trimmer Relationship Specialty Start Date End Date Briana Medeiros MD [address] [place], [place] [phone] PCP - General Family Medicine 09/04/17 09/18/17 documented as of this encounter
--- OUTSIDE RECORDS SUMMARY | 2024-05-25 03:06 | XMS_ITS | Encounter Summary ---
Author Organization [facility] Address [address] [facility] [place] [address] Care Team Providers Care Beauty Artist Name Role Phone Briana Medeiros MD Primary Care Provider [phone] Encounter Details Date Type Department Care Team (Late Contact Info) Description 07/29/2017 Anesthesia Historic Visit [facility] [address] [place] [phone] Social History Tobacco Use Types Packs/Day Years Used Date Smoking Tobacco: Never Assessed Sex and Gender Information Value Date Recorded Sex Assigned at Not on file Gender Identity Not on file Sexual Orientation Not on file documented as of this encounter Last Filed Vital Signs Vital Sign Reading Time Taken Comments Blood Pressure - - Pulse 68 07/29/2017 12:38 PM FLOATMAN Temperature - - Respiratory Rate 17 07/29/2017 12:38 PM FLOATMAN Oxygen Saturation - - Inhaled Oxygen Concentration - - Weight - - Height - - Body Mass Index - - documented in this encounter Plan of Treatment Upcoming Encounters Date Type Department Care Team ([facility] Contact Info) Description 07/09/2024 12:30 PM FLOATMAN Office Visit [facility] [address] [facility] [place] [phone] Twin Miller MD [address] [place] [address] [place] [address] 09/19/2024 2:00 PM CDT Office Visit [facility] - Orthopedic Surgery [address] [place] [phone] Larry Alexander MD [address] [facility] [address] [place] [address] documented as of this encounter Visit Diagnoses Not on filedocumented in this encounter Care Teams Beauty Artist Relationship Specialty Start Date End Date Briana Medeiros MD [address] [place] [id number] PCP - General Family Medicine 09/04/17 09/18/17 documented as of this encounter
--- OUTSIDE RECORDS SUMMARY | 2024-05-25 03:06 | XMS_ITS | Encounter Summary ---
Author Organization [facility] Address [address] [place] [place] [address] Care Team Providers Care Embroidery Designer Name Role Phone Briana Medeiros MD Primary Care Provider [phone] Reason for Visit * Auth/Cert Specialty Diagnoses / Procedures Referred By Contac t Referred To Contact Diagnoses ACUTE HYPOXEMIC RESPIRATORY FAILURE Referral ID Status Reason Start Date Expiration Date Visits Re quested Visits Authorized [id number] 1 1 Encounter Details Date Type Department Care Team (Latest Contact Info) Description 09/15/2017 10:15 AM CDT - 09/15/2017 10:55 AM CDT Surgery [facility] ENDOSCOPY [address] [place] [id number] Louis Mcconnell MD [address] [phone] ESOPHAGOGASTRODUODENOSCOPY (EGD) DIAGNOSTIC Surgery Details Date/Time Status Location OR Service Patient Class Case Class Case Type Trauma Case? 09/15/2017 10:15 AM Posted [facility] Endoscopy ENDO 1 Gastroenterology Inpatient Panel 1 Procedure LRB Anes Op Region Wound Class Comments ESOPHAGOGASTRODUODENOSCOPY ( EGD) DIAGNOSTIC N/A Moderate Sedation Abdomen NA [id number] 24 FR placed Surgeon Surgeon Role Service [...] of this encounter Discharge Summaries * Igor Gililam MD - 09/19/2017 10:49 AM CDT Physician Discharge Summary Patient ID: José Miguel Keys [id number] 66 y.o. 1950 Admit date: 09/06/2017 Discharge [...] awake during the day and Volume AC(RR=15, Er=361, PEEP=8) with sleep Oral care BID ?? [...] 1.0 Color Latest Ref Range: Colorless, Straw [place] (Abnormal) Clarity Latest Ref Range: Clear Slighty [...] was intubated Neurologic: nonfocal, generalized weakness Disposition: intermission coordinator care facility Patient Instructions: Current Discharge Medication [...] 2 times daily with morning and evening duct layerIgor Gilliam * oxyCODONE (immediate release) 5 MG [...] MG capsule Commonly known as: SINEquan ergocalciferol 80005 UNITS capsule Commonly known as: DRISDOL ferrous [...] Commonly known as: KENALOG vitamin D (ergocalciferol) 05115 UNITS capsule Commonly known as: DRISDOL Activity: [...] Level of Care:LTAC [facility] Name: [facility] charter coordinator [place] Made Aware of Special Needs (if applicable): Facility aware of trach/vent and Tube and tube feeding needs RN Call Report to: [phone] RN Fax D/C Orders to: [phone] Transportation (company and number): [facility] [phone] trip number [id number] Certificate of Medical Necessity rationale: Trach and Vent Date/time of transfer: 09/19/2017 1300 Accepting MD: Dr. Espino [phone] Completed and Signed PV337G (if applicable) N/A Family/Other Notified of Transfer (name/phone): Trinity at [phone] Authorization Skilled Care: N/A Authorization for Transportation: trip ticket [id number] Comments: Patient has been accepted at [facility] in [place]. Patient and family agreeable with discharge plan. Christina Mendieta RN * Christina Mendieta RN - 09/19/2017 11:10 AM CDT Patient to be discharged to Critical access hospital At the [facility] Location. Medical team aware and given report number for report.([phone]) Nursing given number for report [phone]. [facility] set up for transport at 1300. [...] Labs Component Name 09/10/17 0557 PO2ART 80 STP1ULN 44 SKJ5HGC 30.0* ?? Radiology: ?? CXR this morning [...] placement - patient has been accepted at [facility] Associated attestation - Poncho Galarza MD - [...] Labs Component Name 09/10/17 0557 PO2ART 80 EUS6ULR 44 ZJQ5FYT 30.0* ?? Radiology: ?? CXR this morning [...] placement - patient has been accepted at [facility] Associated attestation - Poncho Galarza MD - [...] Fellow Vira Wilson MD Gastroenterology Fellow [phone]) [phone] * Jaclyn Monsivais RCP - 09/16/2017 12:08 [...] Case management updated LT[facility] facility [facility] charter coordinator ley of potential discharge date. Will continue to keep facility updated. Christina Mendieta RN 09/16/2017 10:58 AM [phone] * Nicolas Fuentes OT - 09/16/2017 10:23 AM CDT [facility] Physical Medicine and Rehabilitation Occupational Therapy Progress Note Patient: José Miguel Keys Med Record Number: [id number] Date of : 1950 Age: 66 y.o. [...] edge of bed With minimal assist ?? Residential Goal: Patient to discharge to appropriate next [...] Shafer, PT - 09/16/2017 10:22 AM CDT [facility] Physical Medicine and Rehabilitation PhysicalTherapy Progress Note Co-tx with OT and RT Patient: José Miguel Keys Med Record Number: [id number] Date of : 1950 Age: 66 y.o. [...] on edge of bed With minimal assist Residential Goal: Patient to discharge to appropriate next [...] per nursing assess Estimated Energy Needs: KCAL: 7935-2724 ([place] [employer] 2010-obese/vent (97.3kg)) Protein (g): 135-165 (1.8- [...] Labs Component Name 09/10/17 0557 PO2ART 80 WCB5AXG 44 DYV1ERQ 30.0* ?? Radiology: ?? CXR this morning [...] placement - patient has been accepted at [facility] Associated attestation - Yogesh Duncan MD - [...] 7.45 7.51* 7.41 PO2ART 80 274* 65* JJI2CPW 44 38 45 BEART 5.4* 5.7* 2.4* [...] Yogesh Duncan MD, MPH * Jaclyn Monsivais, [facility] - 09/15/2017 3:53 PM CDT Patient seen [...] Isaacs, OT - 09/15/2017 2:15 PM CDT [facility] Physical Medicine and Rehabilitation Occupational Therapy Progress Note Patient: José Miguel Keys Med Record Number: [id number] Date of : 1950 Age: 66 y.o. [...] stand With mod assist and X 2 Client Services Representative Goal:Patient to discharge to appropriate next level [...] Shafer, PT - 09/15/2017 2:10 PM CDT [facility] Physical Medicine and Rehabilitation PhysicalTherapy Progress Note Co-tx with OT and RT Patient: José Miguel Keys Med Record Number: [id number] Date of : 1950 Age: 66 y.o. [...] on edge of bed With minimal assist Client Services Representative Goal: Patient to discharge to appropriate next [...] TBILI 0.3 ALB 1.8* -Impression: Need for residential enteral feedings -Plan/ recommendations: - PEG today [...] Labs Component Name 09/10/17 0557 PO2ART 80 GXQ0KAU 44 MSU7QEU 30.0* ?? Radiology: ?? CXR this morning [...] placement - patient has been accepted at [facility] * Bandar Davis MD - 09/15/2017 7:14 [...] Labs Component Name 09/10/17 0557 PO2ART 80 YJI4ZUQ 44 AIM0ZYU 30.0* ?? Radiology: ?? CXR this morning [...] Isaacs OT - 09/14/2017 1:20 PM CDT [facility] Physical Medicine and Rehabilitation Occupational Therapy Progress Note Patient: José Miguel Keys Med Record Number: [id number] Date of : 1950 Age: 66 y.o. [...] stand With mod assist and X 2 Client Services Representative Goal:Patient to discharge to appropriate next level of inpatient care If patient is discharged from the facility, this note serves as a discharge note if further occupational therapy visits did not occur. Following therapy session, patient left in bed, with call light within reach, with family in room and with RNAlexia. Gabriela Isaacs OT * Beata Shafer, PT - 09/14/2017 1:20 PM CDT [facility] Physical Medicine and Rehabilitation PhysicalTherapy Progress Note Updated orders received s/p tracheostomy, no re-evaluation indicated - continue PT POC Co-tx with OT and RT Patient: José Miguel Keys Med Record Number: [id number] Date of : 1950 Age: 66 y.o. [...] on edge of bed With minimal assist Residential Goal: Patient to discharge to appropriate next [...] - 09/14/2017 9:53 AM CDT Spoke with charter coordinator from [facility]. Patient has been accepted at facility and may go when patient is medically stable. Nursing staff aware. Christina Mendieta RN 09/14/2017 9:57 AM * Beata Shafer, PT - 09/14/2017 7:51 AM CDT [facility] Department of Physical Medicine & Rehabilitation Progress Note Patient: José Miguel Keys [facility] Record Number: [id number] Date of : 1950 Age: 66 y.o. 09/14/17 0751 Therapy on Hold Therapy on hold Surgery. Chart reviewed, patient to OR with general anesthesia. Patient now on holdfrom therapy services. Please re-consult when patient is appropriate for functional mobility and therapy interventions. Beata Shafer, PT 09/14/2017 7:52 AM * Gabriela Isaacs OT - 09/14/2017 7:51 AM CDT Occupational Therapy [facility] Department of Physical Medicine & Rehabilitation Progress Note Patient: José Miguel Keys [facility] Record Number: [id number] Date of : 1950 Age: 66 y.o. [...] LTAC placement. 's preference is [facility]. Referral sent and call placed to staff development coordinator and will review the patients eligibility today. Patient to have trach and PEG placed today. Christina Mendieta RN 09/13/2017 10:27 AM [phone] * Kalyan Cook RCP - 09/13/2017 9:35 [...] - 09/13/2017 9:30 AM CDT Occupational Therapy [facility] Physical Medicine and Rehabilitation Occupational Therapy Progress Note Patient: José Miguel Keys Med Record Number: [id number] Date of : 1950 Age: 66 y.o. [...] 2 and Patient will perform AROM Independently Client Services Representative Goal:Patient to discharge to appropriate next level of inpatient care If patient is discharged from the facility, this note serves as a discharge note if further occupational therapy visits did not occur. Following therapy session, patient left in bed, with call light within reach and with RNGlendy aware. Gabriela Isaacs OT * Beata Shafer, PT - 09/13/2017 9:30 AM CDT [facility] Physical Medicine and Rehabilitation PhysicalTherapy Progress Note Co-tx with OT and RT Patient: José Miguel Keys Med Record Number: [id number] Date of : 1950 Age: 66 y.o. [...] on edge of bed With minimal assist Residential Goal: Patient to discharge to appropriate next [...] Labs Component Name 09/10/17 0557 PO2ART 80 UNO5HXJ 44 NLT8HCJ 30.0* ?? Radiology: ?? CXR this morning [...] 7.45 7.51* 7.41 PO2ART 80 274* 65* SKX1WXY 44 38 45 BEART 5.4* 5.7* 2.4* [...] Yogesh Duncan MD, MPH * Tessie Harris, MILITARY PERSONNEL SPECIALIST - 09/12/2017 5:05 PM CDT SW following pt for discharge planning. Pt and family would prefer LTAC placement at [facility]. Family does not want pt to return to [place]. SW to submit LTAC referral to [facility] and continue following. Tessie Harris 09/12/2017 5:08 PM [phone] * Beata Shafer, PT - 09/12/2017 3:23 PM CDT [facility] Department of Physical Medicine & Rehabilitation Progress Note Patient: José Miguel Keys Med Record Number: [id number] Date of : 1950 Age: 66 y.o. Per discussion with MICU 3, cancel therapy this date 2/2 pt going for tracheostomy. Will continue to follow. Beata Shafer, PT 09/12/2017 3:23 PM * Gabriela Isaacs, OT - 09/12/2017 3:11 PM CDT Occupational Therapy [facility] Department of Physical Medicine & Rehabilitation Progress Note Patient: José Miguel Keys Med Record Number: [id number] Date of : 1950 Age: 66 y.o. [...] Pain affecting intake: No Estimated Needs: KCAL: [id number] ([facility] 2010-obese/vent (97.3kg)) Protein (g): 135-165 (1.8-2.2g/kg (IBW) [...] Labs Component Name 09/10/17 0557 PO2ART 80 XPM5BQN 44 YXJ5HIC 30.0* ?? Radiology: ?? CXR this morning [...] 7.45 7.51* 7.41 PO2ART 80 274* 65* XSW8FSV 44 38 45 BEART 5.4* 5.7* 2.4* [...] Labs Component Name 09/10/17 0557 PO2ART 80 UFJ5NOU 44 XYY6BGT 30.0* ?? Radiology: ?? CXR this morning [...] of Pulmonary, Critical Care, & Sleep Medicine [facility] Pager: [phone] * Hoa Price RN - 09/10/2017 11:51 [...] Labs Component Name 09/10/17 0557 PO2ART 80 WCM4XDW 44 SDI1QFO 30.0* ?? Radiology: ?? CXR this morning [...] of Pulmonary, Critical Care, & Sleep Medicine [facility] Pager: [phone] Associated attestation - Jason Nash MD - [...] Author: CHRIS Ibanez Service: (none) Author Type: Cans Vacuum Tester Date of Service: 09/09/2017 4:59 PM Filed: 09/09/2017 5:01 PM Note Type: Progress Notes Status: Signed [employer] Consultant: CHRIS Ibanez (Cans Vacuum Tester) LAURA following pt for discharge planning. LAURA met with pt's , Trinity Keys [phone], to offer support. SW familiar with pt [...] PM Note Type: Progress Notes Status: Signed [employer] Consultant: RT Elda (Respiratory Therapist) 09/09/17 1642 RT/ Bronch Procedure $ Bedside Bronch Flexible Bronchoscopy Procedures Flexible [facility] Pre-Procedure Diagnosis Pre Procedure LOC: Sedated Procedure details Procedure start time: 1425 Scope in time: 1426 ETT Size: 8 Post Procedure Dx Scope Number: disposable Scope out time: 1450 Procedure ends: 1450 Report given to: RN Assisted with bedside bronchoscopy. [place] protocol checklist completed prior to procedure with [...] PM Note Type: Progress Notes Status: Signed [employer] Consultant: RT Martha (Respiratory Therapist) Respiratory therapist assisted with PO/OT.Manage ventilator. * Provider, MD Claire - 09/09/2017 1:36 PM CDT Progress Notes Signed by MARTHA Enciso on 09/09/2017 3:00 PM Author: MARTHA Enciso Service: (none) Author Type: Occupational Therapist Date of Service: 09/09/2017 1:36 PM Filed: 09/09/2017 3:00 PM Note Type: Progress Notes Status: Signed [employer] Consultant: MARTHA Enciso (Occupational Therapist) Occupational Therapy [facility] Physical Medicine and Rehabilitation Occupational Therapy Initial Evaluation Note Patient: José Miguel Keys [facility] Record Number: [id number] Date of : 1950 Age: 66 y.o. [...] Atrial fibrillation ??? CAD (coronary artery disease) OR 1981, last angiogram 2010 ??? Chronic atrial [...] came from [place]) Prior Function: Level of Sandy: Needs assistance with ADLs;Needs assistance with homemaking;Needs [...] treatment : 20 minutes;with fair + endurance Client Services Representative Goal: Client Services Representative Goal: Patient to discharge to appropriate next [...] PM Note Type: Progress Notes Status: Signed [employer] Consultant: Beata Shafer PT (Physical Therapist) Physical Therapy [facility] Physical Medicine and Rehabilitation Physical Therapy Initial Evaluation Note Co-tx with OT and RT Patient: José Miguel Keys Med Record Number: [id number] Date of : 1950 Age: 66 y.o. [...] Atrial fibrillation ??? CAD (coronary artery disease) OR 1981, last angiogram 2010 ??? Chronic atrial [...] of Home: Facility Prior Function: Level of Sandy: Needs assistance with functional transfers Receives Help [...] Sit Edge of Bed: With minimal assist Client Services Representative Goal(s): Residential Goal: Patient to discharge to appropriate next [...] AM Note Type: Progress Notes Status: Signed [employer] Consultant: Beata Shafer PT (Physical Therapist) Physical Therapy [facility] Department of Physical Medicine & Rehabilitation [...] PM Note Type: Progress Notes Status: Attested [employer] Consultant: Vita Troncoso MD (Resident) Cosigner: Jason Nash [...] 09/06/2017 ABG: Lab Results Component Value Date RSM6QZE 45 09/09/2017 PO2ART 65 (L) 09/09/2017 LHW8QAG 27.4 (H) 09/09/2017 Radiology: CXR this morning [...] MD 09/09/2017 7:39 AM * Delphine Waddell, BAREBACK RIDER-YOUTH ADVOCATE - 09/09/2017 4:16 AM CDT Progress Notes Signed by Delphine Waddell NP on 09/09/2017 4:23 AM Author: Delphine Waddell NP Service: Medical ICU Author Type: Nurse Practitioner Date of Service: 09/09/2017 4:16 AM Filed: 09/09/2017 4:23 AM Note Type: Progress Notes Status: Signed [employer] Consultant: Delphine Waddell NP (Nurse Practitioner) Called by [...] Delphine Waddell NP Critical Care, MICU3 Ext [phone] * Claire Marcum MD - 09/08/2017 8:05 AM CDT Progress Notes Signed by MARTHA Newton on 09/08/2017 8:06 AM Author: MARTHA Newton Service: Physical Medicine and Rehabilitation Author Type: Occupational Therapist Date of Service: 09/08/2017 8:05 AM Filed: 09/08/2017 8:06 AM Note Type: Progress Notes Status: Signed [employer] Consultant: MARTHA Newton (Occupational Therapist) Occupational Therapy [facility] Department of Physical Medicine & Rehabilitation [...] PM Note Type: Progress Notes Status: Attested [employer] Consultant: Vita Troncoso MD (Resident) Cosigner: Jason Nash [...] 09/06/2017 ABG: Lab Results Component Value Date FVR8RCB 47 (H) 09/06/2017 PO2ART 169 (H) 09/06/2017 YGW1YDB 27.0 (H) 09/06/2017 Radiology: CXR this morning [...] AM Note Type: Progress Notes Status: Signed [employer] Consultant: Kim Joshua RN (Registered Nurse) [phone] Patient states he is SOB and feels [...] PM Note Type: Progress Notes Status: Attested [employer] Consultant: Vita Troncoso MD (Resident) Related Notes: Original [...] 09/06/2017 ABG: Lab Results Component Value Date HBG2DFP 47 (H) 09/06/2017 PO2ART 169 (H) 09/06/2017 HKV5KWK 27.0 (H) 09/06/2017 Radiology: CXR this morning [...] Ирина Barrientos RD Service: (none) Author Type: Senior Brand Manager Date of Service: 09/07/2017 7:27 AM Filed: 09/07/2017 8:29 AM Note Type: Progress Notes Status: Signed [employer] Consultant: Ирина Barrientos RD (Senior Brand Manager) Medical Nutrition Therapy Evaluation Nutrition Recommendations: [...] 3.6 oz (113.5 kg) Estimated Needs: Calories: 9653-0655 kcals ([facility] 2010) vent/obese Protein: 135-165 g (1.8-2.2g/kg) ideal [...] RN on 09/07/2017 5:59 AM Author: Jay Leomn RN Service: (none) Author Type: Registered Nurse Date of Service: 09/07/2017 5:59 AM Filed: 09/07/2017 5:59 AM Note Type: Progress Notes Status: Signed [employer] Consultant: Jay Lemon RN (Registered Nurse) At 0500, [...] AM Note Type: Progress Notes Status: Signed [employer] Consultant: RT Niurka (Respiratory Therapist) Patient is excluded [...] AM Note Type: Progress Notes Status: Signed [employer] Consultant: Jay Lemon RN (Registered Nurse) Notified BELLA [...] PM Note Type: Progress Notes Status: Signed [employer] Consultant: Jason Nash MD (Physician) ICU progress Note: [...] PM Note Type: Progress Notes Status: Signed [employer] Consultant: RT Song (Respiratory Therapist) 09/06/17 1500 RT/ [...] given to: RN Assisted with bedside bronchoscopy. [place] protocol checklist completed prior to procedure with [...] Author: CHRIS Littlejohn Service: (none) Author Type: Cans Vacuum Tester Date of Service: 09/06/2017 12:03 PM Filed: 09/06/2017 12:06 PM Note Type: Progress Notes Status: Signed [employer] Consultant: CHRIS Littlejohn (Cans Vacuum Tester) READMISSION NOTE: ?? [facility]. [facility]. Below assessment was completed with pt and [...] was completed with pt's , Francia Keys [phone], at bedside. ? Admitting Diagnosis: Sepsis ? Pt readmitted with in 30 days: No ?Primary Care Doctor: Dr. Mau Medeiros [phone], last saw this physician three months ago. ? Prior Ability to perform ADL???s: Independent ? Anticipated Changes in performance of ADLS: PT/OT recommending SNF placement. Pt and are agreeable to recommendations and would like referrals submitted to [facility] and [facility] [place]. SW to submit referrals. ? Communication of Needs:??[place] Citizen, self, A&Ox4? Medication Management: Uses [facility] in [place] ([phone]) ? Current Living Situation: Pt lives with his in their multi level home. There are 14 steps witha railing on one side to enter the home. ? Current Support System:??Francia Keys () [phone] ? Power of Surgical Attendant or Guardian: No ? Financial: Retired, insured through Medicare and [employer] ? Transportation: Will have a ride home [...] Other Healthcare Applications Active with Medicare and [employer] Substance Abuse Assessment and Treatment plan N/A Social Work referral for skilled placement needs Referrals submitted to [facility] and [facility] Other: Pt is a ? Case Management [...] Best??address and??telephone # for Patient: ? [address] [place] [address] ? Insurance and demographics verified with patient. [...] mg Enteral Tube BID Delphine Waddell APRN- YOUTH ADVOCATE 8.6 mg at 09/14/17 2044 ??? polyethylene glycol 3350 (MIRALAX) packet 17 g 17 g Enteral Tube QDAY PRN Delphine Waddell APRN-YOUTH ADVOCATE 17 g at 09/11/17 0842 ??? docusate sodium (COLACE) solution 100 mg 100 mg Enteral Tube QDAY Delphine Waddell APRN-YOUTH ADVOCATE 100mg at 09/14/17 0841 ??? lidocaine (LIDODERM) 5 % patch 1 patch 1 patch Transdermal QDAY Delphine Waddell APRN-YOUTH ADVOCATE 1 patch at 09/14/17 0840 ??? albuterol [...] Pain assessment: None Sedation Assessment & Plan: [place] [employer] Anesthesiologists Classification (PRE-PROCEDURE): ASA 3 [...] 5:06 PM Note Type: H&P Status: Attested [employer] Consultant: Vita Troncoso MD (Resident) Cosigner: Jason Nash [...] osteomyelitis of L1/L2 and DVT Transferred from [facility] facility for hypoxia. Patient with recent [...] Atrial fibrillation ??? CAD (coronary artery disease) OR 1981, last angiogram 2010 ??? Chronic atrial [...] area twice daily as needed ??? ergocalciferol 72467 UNITS Cap Take 50,000 Units by mouth [...] DAY NEEDED 0 ??? Vitamin D, Ergocalciferol, 02373 UNITS Cap Take 1 capsule by mouth [...] Recent Labs 09/06/17 1211 PO2ART 152 H RWT4GRU 55 H FNR3BIB 25.0 Urine Studies: Lab Results Component Value [...] 2:54 PM Note Type: Procedures Status: Attested [employer] Consultant: Veronica Costello MD (Resident) Related Notes: Original [...] 4:14 AM Note Type: Procedures Status: Signed [employer] Consultant: Ivonne Rubin MD (Resident) Cosigner: Jason Nash [...] 5:08 PM Note Type: Procedures Status: Attested [employer] Consultant: Veronica Costello MD (Resident) Cosigner: Jason Nash MD at 09/08/2017 9:56 PM Procedures: 1. CHEST TUBE INSERTION [[id number] (Custom)] Attestation signed by Jason Nash MD [...] over the guidewire and removed. A 14 Macanese tube was placed in the left lateral [...] of Pulmonary, Critical Care, & Sleep Medicine [facility] Pager: [phone] * Veronica Costello MD - 09/06/2017 2:10 PM CDT Procedures Signed by Veronica Costello MD on 09/06/2017 5:11 PM Author: Veronica Costello MD Service: Pulmonary Critical Care Author Type: Resident Date of Service: 09/06/2017 2:10 PM Filed: 09/06/2017 5:11 PM Note Type: Procedures Status: Attested [employer] Consultant: Veronica Costello MD (Resident) Related Notes: Original [...] of L1/L2 who has been staying at [facility] completing IV antibx for prior bacteremia [...] by mouth DAILY. Disp: Rfl: ergocalciferol (DRISDOL) 10390 UNITS capsule Take 50,000 Units by mouth [...] Disp: Rfl: 0 vitamin D, ergocalciferol, (DRISDOL) 68418 UNITS capsule Take 1 capsule by mouth [...] concerns. Vira Wilson MD Gastroenterology Fellow Pager: [phone] Associated attestation - Elizabeth Lee MD - 09/14/2017 8:07 PM CDT [facility] GI Attending José Miguel Keys is a 66 y.o. male who was seen and examined with the GI fellow 09/14/2017. I agree with their note attached. In addition, I note patient with complex recent medical illness, including hypoxic respiratory failure. Status post trach and in need of residential nutrition for rehab as he is unable [...] Feeding difficulties in adult with need for half-way nutrition. 2. Daily ASA 3. On ceftaroline [...] 4:42 PM Note Type: Consults Status: Attested [employer] Consultant: Vibha Benites MD (Resident) Cosigner: Elisabet Jones [...] Atrial fibrillation ??? CAD (coronary artery disease) OR 1981, last angiogram 2010 ??? Chronic atrial [...] 200 mg Feeding Tube BID Rebecca Melendez AGING ROOM OPERATOR 200 mg at 09/07/17 0840 Allergies: [...] 6:43 PM CDT José Miguel Keys 1950 [id number] Date of Procedure: 09/13/2017 Pre-Op Diagnosis: Ventilator dependency; Prolonged endotracheal intubation Post-Op Diagnosis: Same Procedure: Tracheostomy w/ skin fenestration, CPT code 87237 Surgeon: Duke Castaneda MD Resident: Leslye Wood [...] tested for defects and nonewere found. The line up machine operator withdrew the endotracheal tube under direct visualization [...] Note Type: ED Provider Notes Status: Signed [employer] Consultant: Bandar Mansfield MD (Physician) [facility] eMERGENCY dEPARTMENT eNCOUnter ATTENDING PHYSICIAN NOTE HISTORICAL INFORMATION Primary Care Doctor: Mau Medeiros Patient information was obtained primarily from the patient, nursing notes, records History/Exam limitations: clinical condition. Time of evaluation: 11:21AM CHIEF COMPLAINT Shortness of Breath HPI José Miguel Keys is a 66 y.o. male with a past medical history of DM, asthma, A- fib, HTN, COPD, and OR who arrived to the ED via EMS at 11:21AM for severe repiratory distress. Patient was placed on CPAP per EMS en route, satting at 75%. HPI limited and obtained per EMS 2/2 acuity of medical condition. PAST MEDICAL HISTORY Past Medical History: Diagnosis Date ??? PAYTON (acute kidney injury) ??? Asthma ??? Atrial fibrillation ??? CAD (coronary artery disease) OR 1981, last angiogram 2010 ??? Chronic atrial [...] This report was electronically signed by VANDANA SANTAIGO M.D. on 09/06/2017 7:52 AM . PX [...] the esophagus and tips are off the [id number]. There is a moderate left pleural effusion, intervally decreased. There is a small right pleural effusion, unchanged. There are bilateral interstitial and airspace opacities likely representing pulmonary edema or pneumonia. No pneumothorax is identified. The cardiac silhouette is partly obscured. Report dictated by Rohan Hopkins M.D. (radiology transcriptionist). I, Dr. SILAS NGUYỄN MD have personally [...] in the appropriate position and an 18 Macanese nasogastric tube waslubricated with water soluble lubricant [...] st Contact Info) Description 07/09/2024 12:30 PM INSIDE SALES RECRUITER Office Visit [facility] - GI [address] [facility], [place] [address] Twin Miller MD [facility] [place] [address] 09/19/2024 2:00 PM CDT Office Visit [facility] - Orthopedic [facility] [address] [facility] [place] [address] Larry Alexander MD [address] [facility] [address] [place] [address] Pending Results Name Type Priority Associated Diagnoses [...] POINT OF CARE (09/19/2017 2:45 AM CDT) [facility] Glucose WB/POC 181(H) 70 - 115 mg/dL 09/19/2017 2:59 AM CDT [facility] Blood BLOOD SPECIMEN / Unknown 09/19/2017 2:45 AM CDT 09/19/2017 2:59 AM CDT Narrative [facility] - 09/19/2017 2:59 AM CDT Construction Producer: GONZALEZ ??MALAIKA Jason Nash MD LAB - POINT OF CARE ORDERABLES Performing Organization Address [facility] Co de Phone Number [address] [phone] * (ABNORMAL) RBC MORPHOLOGY (09/19/2017 2:43 AM CDT) Platelet Estimate Adequate Adequate 09/19/2017 5:26 AM CDT [facility] Anisocytosis 1+(A) None 09/19/2017 5:26 AM CDT [facility] Microcytes Few(A) None 09/19/2017 5:26 AM CDT [facility] Macrocytosis 1+(A) None 09/19/2017 5:26 AM CDT [facility] Hypochromia 1+(A) None 09/19/2017 5:26 AM CDT [facility] Schistocytes Occasional(A ) None 09/19/2017 5:26 AM CDT [facility] Ovalocytes 1+(A) None 09/19/2017 5:26 AM CDT [facility] Blood BLOOD SPECIMEN / Unknown Venipuncture / Unknown 09/19/2017 2:43 AM CDT 09/19/2017 3:39 AM CDT Rebecca Melendez [facility] LAB - HEMATOLOGY ORDERABLES Performing Organization Address [facility] Co de Phone Number [address] [phone] * MAGNESIUM BLOOD (09/19/2017 2:43 AM CDT) Magnesium 1.7 1.6 - 2.6 mg/dL 09/19/2017 4:19 AM CDT [facility] Blood BLOOD SPECIMEN / Unknown Venipuncture / Unknown 09/19/2017 2:43 AM CDT 09/19/2017 3:39 AM CDT Rebecca Melendez [facility] LAB - CHEMISTRY O RDERABLES [facility] [address] [phone] * (ABNORMAL) CBC W AUTO DIFFERENTIAL (09/19/2017 2:43 AM CDT) WBC 8.5 3.5 - 10.5 10? 3 /uL 09/19/2017 4:25 AM [facility] RBC 2.85(L) 4.30 - 5.70 10? 6 /uL 09/19/2017 4:25 AM [facility] Hemoglobin 8.1(L) 13.5 - 17.5 g/dL 09/19/2017 4:25 AM [facility] Hematocrit 28.0(L) 39.0 - 50.0 % 09/19/2017 4:25 AM [facility] MCV 98.2(H) 81.0 - 97.0 fL 09/19/2017 4:25 AM [facility] MCH 28.4 28.0 - 34.0 pg 09/19/2017 4:25 AM [facility] MCHC 28.9(L) 32.0 - 36.0 g/dL 09/19/2017 4:25 AM [facility] Platelet Count 208 150 - 400 10? 3 /uL 09/19/2017 4:25 AM [facility] RDW-SD 76.4(H) 36.0 - 50.0 fL 09/19/2017 4:25 AM [facility] RDW-CV 21.3(H) 11.2 - 14.8 % 09/19/2017 4:25 AM [facility] MPV 13.4(H) 9.3 - 12.8 fL 09/19/2017 4:25 AM [facility] Neutrophils % 79.2(H) 35.0 - 70.0 % 09/19/2017 4:25 AM [facility] Lymphocytes % 9.5(L) 19.7 - 55.1 % 09/19/2017 4:25 AM [facility] Monocytes % 6.7 3.0 - 15.0 % 09/19/2017 4:25 AM [facility] Eosinophils % 4.4 0.0 - 6.0 % 09/19/2017 4:25 AM [facility] Basophil % 0.2 0.0 - 1.5 % 09/19/2017 4:25 AM [facility] Neutrophils Absolute 6.8 1.6 - 7.0 10? 3 /uL 09/19/2017 4:25 AM [facility] Lymphocyte Absolute 0.8 0.8 - 2.9 10? 3 /uL 09/19/2017 4:25 AM [facility] Monocytes Absolute 0.57 0.14 - 0.66 10? 3 /uL 09/19/2017 4:25 AM [facility] Eosinophils Absolute 0.38(H) 0.00 - 0.22 10? 3 /uL 09/19/2017 4:25 AM [facility] Basophils Absolute 0.02 0.00 - 0.06 10? 3 /uL 09/19/2017 4:25 AM [facility] Reflex Status Morphology review to follow. 09/19/2017 4:25 AM [facility] Immature Granulocytes % 0.5 0.0 - 1.0 % 09/19/2017 4:25 AM [facility] Blood BLOOD SPECIMEN / Unknown Venipuncture / Unknown 09/19/2017 2:43 AM CDT 09/19/2017 3:39 AM CDT Rebecca Melendez [facility] LAB - HEMATOLOGY ORDERABLES Performing Organization Address [facility]/State/[facility] Co de Phone Number [address] [phone] * (ABNORMAL) BASIC METABOLIC PANEL (CALCIUM TOTAL) (09/19/2017 2:43 AM CDT) BUN 26 7 - 26 mg/dL 09/19/2017 4:19 AM [facility] Creatinine 0.6 0.6 - 1.2 mg/dL 09/19/2017 4:19 AM [facility] Sodium 138 136 - 145 mmol/L 09/19/2017 4:19 AM [facility] Potassium 4.9(H) 3.5 - 4.5 mmol/L 09/19/2017 4:19 AM [facility] Chloride 98 98 - 107 mmol/L 09/19/2017 4:19 AM [facility] CO2 34(H) 22 - 29 mmol/L 09/19/2017 4:19 AM [facility] Glucose 153(H) 70 - 115 mg/dL 09/19/2017 4:19 AM [facility] Calcium 9.1 8.4 - 10.2 mg/dL 09/19/2017 4:19 AM [facility] Anion Gap 11 8 - 18 09/19/2017 4:19 AM [facility] BUN/Creatinine Ratio 43(H) 7 - 23 09/19/2017 4:19 AM [facility] Osmolality Calculated 294 270 - 300 mOsm/kg 09/19/2017 4:19 AM [facility] eGFR >60 >60 mL/min/1.7 3 m2 09/19/2017 4:19 AM [facility] Blood BLOOD SPECIMEN / Unknown Venipuncture / Unknown 09/19/2017 2:43 AM CDT 09/19/2017 3:39 AM CDT Rebecca Melendez [facility] - CHEMISTRY O RDERABLES Performing Organization Address City/[facility]/ZIP Co de Phone Number [address] [phone] * PHOSPHORUS BLOOD (09/19/2017 2:43 AM CDT) Phosphorus 2.5 2.3 - 4.7 mg/dL 09/19/2017 4:19 AM T [facility] Blood BLOOD SPECIMEN / Unknown Venipuncture / Unknown 09/19/2017 2:43 AM CDT 09/19/2017 3:39 AM CDT Rebecca Melendez [facility] LAB - CHEMISTRY O RDERABLES Performing Organization Address City/[facility]/ZIP Co de Phone Number [address] [phone] * (ABNORMAL) GLUCOSE - POINT OF CARE (09/18/2017 4:50 PM CDT) Glucose WB/POC 140(H) 70 - 115 mg/dL 09/18/2017 5:04 PM CDT [facility] Blood BLOOD SPECIMEN / Unknown 09/18/2017 4:50 PM CDT 09/18/2017 5:04 PM CDT Narrative [facility] - 09/18/2017 5:04 PM CDT Construction Producer: SMITH ??NOA Jason Nash MD LAB - POINT OF CARE ORDERABLES [address] [phone] * XR CHEST 1VW PORTABLE (09/18/2017 2:45 [...] - 115 mg/dL 09/18/2017 1:13 PM CDT [facility] Blood BLOOD SPECIMEN / Unknown 09/18/2017 1:00 PM CDT 09/18/2017 1:13 PM CDT Narrative [facility] - 09/18/2017 1:13 PM CDT Construction Producer: SMITH ??NOA Jason Nash MD LAB - POINT OF CARE ORDERABLES Performing Organization Address City/[facility]/ZIP Co de Phone Number [address] [phone] * MAGNESIUM BLOOD (09/18/2017 11:04 AM CDT) Magnesium 2.6 1.6 - 2.6 mg/dL 09/18/2017 11:39 AM CDT [facility] Blood BLOOD SPECIMEN / Unknown Venipuncture / Unknown 09/18/2017 11:04 AM CDT 09/18/2017 11:06 AM CDT Jason Nash MD LAB - CHEMISTRY ORDE RABLES [address] [phone] * PHOSPHORUS BLOOD (09/18/2017 12:03 AM CDT) Phosphorus 2.8 2.3 - 4.7 mg/dL 09/18/2017 12:48 AM CDT [facility] Blood BLOOD SPECIMEN / Unknown Lab Venipuncture / Unknown 09/18/2017 12:03 AM CDT 09/18/2017 12:03 AM CDT Rebecca Pandaple [facility] LAB - CHEMISTRY O RDERABLES [address] [phone] * MAGNESIUM BLOOD (09/18/2017 12:03 AM CDT) Magnesium 2.0 1.6 - 2.6 mg/dL 09/18/2017 12:48 AM [facility] Blood BLOOD SPECIMEN / Unknown Lab Venipuncture / Unknown 09/18/2017 12:03 AM CDT 09/18/2017 12:03 AM CDT Rebecca Pandaple [facility] - CHEMISTRY O RDERABLES Performing Organization Address City/[facility]/ZIP Co de Phone Number [address] [phone] * (ABNORMAL) CBC W AUTO DIFFERENTIAL (09/18/2017 12:03 AM CDT) WBC 8.7 3.5 - 10.5 10? 3 /uL 09/18/2017 12:31 AM [facility] RBC 3.09(L) 4.30 - 5.70 10? 6 /uL 09/18/2017 12:31 AM [facility] Hemoglobin 8.8(L) 13.5 - 17.5 g/dL 09/18/2017 12:31 AM [facility] Hematocrit 29.6(L) 39.0 - 50.0 % 09/18/2017 12:31 AM [facility] MCV 95.8 81.0 - 97.0 fL 09/18/2017 12:31 AM [facility] MCH 28.5 28.0 - 34.0 pg 09/18/2017 12:31 AM [facility] MCHC 29.7(L) 32.0 - 36.0 g/dL 09/18/2017 12:31 AM [facility] Platelet Count 199 150 - 400 10? 3 /uL 09/18/2017 12:31 AM [facility] RDW-SD 76.1(H) 36.0 - 50.0 fL 09/18/2017 12:31 AM [facility] RDW-CV 21.4(H) 11.2 - 14.8 % 09/18/2017 12:31 AM [facility] MPV 13.3(H) 9.3 - 12.8 fL 09/18/2017 12:31 AM [facility] Neutrophils % 79.2(H) 35.0 - 70.0 % 09/18/2017 12:31 AM [facility] Lymphocytes % 10.1(L) 19.7 - 55.1 % 09/18/2017 12:31 AM [facility] Monocytes % 7.4 3.0 - 15.0 % 09/18/2017 12:31 AM [facility] Eosinophils % 3.1 0.0 - 6.0 % 09/18/2017 12:31 AM [facility] Basophil % 0.2 0.0 - 1.5 % 09/18/2017 12:31 AM [facility] Neutrophils Absolute 6.9 1.6 - 7.0 10? 3 /uL 09/18/2017 12:31 AM [facility] Lymphocyte Absolute 0.9 0.8 - 2.9 10? 3 /uL 09/18/2017 12:31 AM [facility] Monocytes Absolute 0.64 0.14 - 0.66 10? 3 /uL 09/18/2017 12:31 AM [facility] Eosinophils Absolute 0.27(H) 0.00 - 0.22 10? 3 /uL 09/18/2017 12:31 AM [facility] Basophils Absolute 0.02 0.00 - 0.06 10? 3 /uL 09/18/2017 12:31 AM [facility] Immature Granulocytes % 0.3 0.0 - 1.0 % 09/18/2017 12:31 AM [facility] Blood BLOOD SPECIMEN / Unknown Lab Venipuncture / Unknown 09/18/2017 12:03 AM T 09/18/2017 12:03 AM CDT Rebecca Pandaple [facility] LAB - HEMATOLOGY ORDERABLES [address] [phone] * (ABNORMAL) BASIC METABOLIC PANEL (CALCIUM TOTAL) (09/18/2017 12:03 AM CDT) BUN 25 7 - 26 mg/dL 09/18/2017 12:48 AM [facility] Creatinine 0.6 0.6 - 1.2 mg/dL 09/18/2017 12:48 AM [facility] Sodium 140 136 - 145 mmol/L 09/18/2017 12:48 AM [facility] Potassium 3.4(L) 3.5 - 4.5 mmol/L 09/18/2017 12:48 AM [facility] Chloride 95(L) 98 - 107 mmol/L 09/18/2017 12:48 AM [facility] CO2 35(H) 22 - 29 mmol/L 09/18/2017 12:48 AM [facility] Glucose 135(H) 70 - 115 mg/dL 09/18/2017 12:48 AM [facility] Calcium 9.0 8.4 - 10.2 mg/dL 09/18/2017 12:48 AM [facility] Anion Gap 13 8 - 18 09/18/2017 12:48 AM [facility] BUN/Creatinine Ratio 42(H) 7 - 23 09/18/2017 12:48 AM [facility] Osmolality Calculated 296 270 - 300 mOsm/kg 09/18/2017 12:48 AM [facility] eGFR >60 >60 mL/min/1.7 3 m2 09/18/2017 12:48 AM [facility] Blood BLOOD SPECIMEN / Unknown Lab Venipuncture / Unknown 09/18/2017 12:03 AM CDT 09/18/2017 12:03 AM CDT Rebecca Pandaple [facility] - [place] [address], [place] [phone] * (ABNORMAL) GLUCOSE - POINT OF CARE (09/17/2017 7:18 PM CDT) Glucose WB/POC 157(H) 70 - 115 mg/dL 09/17/2017 7:31 PM CDT [facility] Blood BLOOD SPECIMEN / Unknown 09/17/2017 7:18 PM CDT 09/17/2017 7:31 PM CDT Narrative [facility] - 09/17/2017 7:31 PM CDT Construction Producer: SLACK ??QUE Jason Nash MD LAB - POINT OF CARE ORDERABLES [address] [phone] * (ABNORMAL) GLUCOSE - POINT OF CARE (09/17/2017 12:04 PM CDT) Glucose WB/POC 164(H) 70 - 115 mg/dL 09/17/2017 12:24 PM CDT [facility] Blood BLOOD SPECIMEN / Unknown 09/17/2017 12:04 PM CDT 09/17/2017 12:23 PM CDT [facility] - 09/17/2017 12:24 PM CDT Construction Producer: SLACK ??QUE Jason Nash MD LAB - POINT OF CARE ORDERABLES [address] [phone] * (ABNORMAL) RBC MORPHOLOGY (09/17/2017 4:33 AM CDT) Platelet Estimate Adequate Adequate 09/17/2017 5:55 AM CDT [facility] Microcytes 1+(A) None 09/17/2017 5:55 AM CDT [facility] Hypochromia 1+(A) None 09/17/2017 5:55 AM CDT [facility] Ovalocytes 1+(A) None 09/17/2017 5:55 AM [facility] Blood BLOOD SPECIMEN / Unknown Venipuncture / Unknown 09/17/2017 4:33 AM CDT 09/17/2017 4:42 AM CDT Rebecca L Jainism [facility] LAB - HEMATOLOGY ORDERABLES Performing Organization Address [facility] Co de Phone Number [address] [phone] * MAGNESIUM BLOOD (09/17/2017 4:33 AM CDT) Pathologist [facility] Magnesium 1.9 1.6 - 2.6 mg/dL 09/17/2017 5:16 AM [facility] Blood BLOOD SPECIMEN / Unknown Venipuncture / Unknown 09/17/2017 4:33 AM CDT 09/17/2017 4:42 AM CDT Rebecca Melendez [facility] LAB - CHEMISTRY O RDERABLES Performing Organization Address City/[facility]/ZIP Co de Phone Number [address] [phone] * (ABNORMAL) CBC W AUTO DIFFERENTIAL (09/17/2017 4:33 AM CDT) WBC 8.1 3.5 - 10.5 10? 3 /uL 09/17/2017 5:05 AM [facility] RBC 3.04(L) 4.30 - 5.70 10? 6 /uL 09/17/2017 5:05 AM [facility] Hemoglobin 8.7(L) 13.5 - 17.5 g/dL 09/17/2017 5:05 AM [facility] Hematocrit 29.2(L) 39.0 - 50.0 % 09/17/2017 5:05 AM [facility] MCV 96.1 81.0 - 97.0 fL 09/17/2017 5:05 AM [facility] MCH 28.6 28.0 - 34.0 pg 09/17/2017 5:05 AM [facility] MCHC 29.8(L) 32.0 - 36.0 g/dL 09/17/2017 5:05 AM [facility] Platelet Count 182 150 - 400 10? 3 /uL 09/17/2017 5:05 AM [facility] RDW-SD 76.7(H) 36.0 - 50.0 fL 09/17/2017 5:05 AM [facility] RDW-CV 21.9(H) 11.2 - 14.8 % 09/17/2017 5:05 AM [facility] MPV 13.6(H) 9.3 - 12.8 fL 09/17/2017 5:05 AM [facility] Neutrophils % 78.7(H) 35.0 - 70.0 % 09/17/2017 5:05 AM [facility] Lymphocytes % 10.7(L) 19.7 - 55.1 % 09/17/2017 5:05 AM [facility] Monocytes % 8.0 3.0 - 15.0 % 09/17/2017 5:05 AM [facility] Eosinophils % 2.1 0.0 - 6.0 % 09/17/2017 5:05 AM [facility] Basophil % 0.5 0.0 - 1.5 % 09/17/2017 5:05 AM [facility] Neutrophils Absolute 6.4 1.6 - 7.0 10? 3 /uL 09/17/2017 5:05 AM [facility] Lymphocyte Absolute 0.9 0.8 - 2.9 10? 3 /uL 09/17/2017 5:05 AM [facility] Monocytes Absolute 0.65 0.14 - 0.66 10? 3 /uL 09/17/2017 5:05 AM [facility] Eosinophils Absolute 0.17 0.00 - 0.22 10? 3 /uL 09/17/2017 5:05 AM [facility] Basophils Absolute 0.04 0.00 - 0.06 10? 3 /uL 09/17/2017 5:05 AM [facility] Immature Granulocytes % 0.5 0.0 - 1.0 % 09/17/2017 5:05 AM [facility] Blood BLOOD SPECIMEN / Unknown Venipuncture / Unknown 09/17/2017 4:33 AM CDT 09/17/2017 4:42 AM CDT Rebecca Maxwell Jainism [facility] LAB - HEMATOLOGY ORDERABLES [facility] [address] [phone] * (ABNORMAL) BASIC METABOLIC PANEL (CALCIUM TOTAL) (09/17/2017 4:33 AM CDT) BUN 19 7 - 26 mg/dL 09/17/2017 5:16 AM [facility] Creatinine 0.6 0.6 - 1.2 mg/dL 09/17/2017 5:16 AM [facility] Sodium 139 136 - 145 mmol/L 09/17/2017 5:16 AM [facility] Potassium 3.6 3.5 - 4.5 mmol/L 09/17/2017 5:16 AM [facility] Chloride 96(L) 98 - 107 mmol/L 09/17/2017 5:16 AM [facility] CO2 32(H) 22 - 29 mmol/L 09/17/2017 5:16 AM [facility] Glucose 120(H) 70 - 115 mg/dL 09/17/2017 5:16 AM [facility] Calcium 8.8 8.4 - 10.2 mg/dL 09/17/2017 5:16 AM [facility] Anion Gap 15 8 - 18 09/17/2017 5:16 AM [facility] BUN/Creatinine Ratio 32(H) 7 - 23 09/17/2017 5:16 AM [facility] Osmolality Calculated 291 270 - 300 mOsm/kg 09/17/2017 5:16 AM [facility] eGFR >60 >60 mL/min/1.7 3 m2 09/17/2017 5:16 AM [facility] Blood BLOOD SPECIMEN / Unknown Venipuncture / Unknown 09/17/2017 4:33 AM CDT 09/17/2017 4:42 AM CDT Rebecca L Jainism [facility] - CHEMISTRY O RDERABLES [address] [phone] * PHOSPHORUS BLOOD (09/17/2017 4:33 AM CDT) Phosphorus 3.2 2.3 - 4.7 mg/dL 09/17/2017 5:16 AM CDT [facility] Blood BLOOD SPECIMEN / Unknown Venipuncture / Unknown 09/17/2017 4:33 AM CDT 09/17/2017 4:42 AM CDT Rebecca Melendez [facility] - CHEMISTRY O RDERABLES Performing Organization Address City/[facility]/ZIP Co de Phone Number [address] [phone] * GLUCOSE - POINT OF CARE (09/16/2017 11:18 PM CDT) Glucose WB/POC 111 70 - 115 mg/dL 09/16/2017 11:32 PM CDT [facility] Blood BLOOD SPECIMEN / Unknown 09/16/2017 11:18 PM CDT 09/16/2017 11:32 PM CDT Narrative [facility] - 09/16/2017 11:32 PM CDT Construction Producer: AMY ??CHRISTIANO aJson Nash MD LAB - POINT OF CARE ORDERABLES Performing Organization Address [facility]/ZIP Co de Phone Number [address] [phone] * GLUCOSE - POINT OF CARE (09/16/2017 6:41 PM CDT) Glucose WB/POC 98 70 - 115 mg/dL 09/16/2017 6:55 PM CDT [facility] Blood BLOOD SPECIMEN / Unknown 09/16/2017 6:41 PM CDT 09/16/2017 6:55 PM CDT Narrative [facility] - 09/16/2017 6:55 PM CDT Construction Producer: SG ??JOSE L Jason Nash MD LAB - POINT OF CARE ORDERABLES Performing Organization Address [facility]/ZIP Co de Phone Number [address] [phone] * GLUCOSE - POINT OF CARE (09/16/2017 12:22 PM CDT) Glucose WB/POC 91 70 - 115 mg/dL 09/16/2017 12:35 PM CDT [facility] Blood BLOOD SPECIMEN / Unknown 09/16/2017 12:22 PM CDT 09/16/2017 12:35 PM CDT Narrative [facility] - 09/16/2017 12:35 PM CDT Construction Producer: CHELA ??GLADYS Jason Nash MD LAB - POINT OF CARE ORDERABLES Performing Organization Address [facility] Co de Phone Number [address] [phone] * GLUCOSE - POINT OF CARE (09/16/2017 5:56 AM CDT) Glucose WB/POC 79 70 - 115 mg/dL 09/16/2017 6:10 AM CDT [facility] Blood BLOOD SPECIMEN / Unknown 09/16/2017 5:56 AM CDT 09/16/2017 6:10 AM CDT Narrative [facility] - 09/16/2017 6:10 AM CDT Construction Producer: LYUBOV ?MARCOS Jason Nash MD LAB - POINT OF CARE ORDERABLES Performing Organization Address [facility]/ZIP Co de Phone Number [address] [phone] * (ABNORMAL) RBC MORPHOLOGY (09/16/2017 4:13 AM CDT) Platelet Estimate Adequate Adequate 09/16/2017 5:12 AM CDT [facility] Anisocytosis 1+(A) None 09/16/2017 5:12 AM CDT [facility] Hypochromia 1+(A) None 09/16/2017 5:12 AM CDT [facility] Blood BLOOD SPECIMEN / Unknown Venipuncture / Unknown 09/16/2017 4:13 AM CDT 09/16/2017 4:18 AM CDT Veronica Costello MD LAB - HEMATOLOGY ORD ERABLES [facility] [address] [phone] * (ABNORMAL) CBC W AUTO DIFFERENTIAL (09/16/2017 4:13 AM CDT) WBC 8.5 3.5 - 10.5 10? 3 /uL 09/16/2017 4:25 AM [facility] RBC 2.87(L) 4.30 - 5.70 10? 6 /uL 09/16/2017 4:25 AM [facility] Hemoglobin 8.1(L) 13.5 - 17.5 g/dL 09/16/2017 4:25 AM [facility] Hematocrit 27.6(L) 39.0 - 50.0 % 09/16/2017 4:25 AM [facility] MCV 96.2 81.0 - 97.0 fL 09/16/2017 4:25 AM [facility] MCH 28.2 28.0 - 34.0 pg 09/16/2017 4:25 AM [facility] MCHC 29.3(L) 32.0 - 36.0 g/dL 09/16/2017 4:25 AM [facility] Platelet Count 172 150 - 400 10? 3 /uL 09/16/2017 4:25 AM [facility] RDW-SD 76.1(H) 36.0 - 50.0 fL 09/16/2017 4:25 AM [facility] RDW-CV 22.0(H) 11.2 - 14.8 % 09/16/2017 4:25 AM [facility] MPV 12.8 9.3 - 12.8 fL 09/16/2017 4:25 AM [facility] Neutrophils % 80.7(H) 35.0 - 70.0 % 09/16/2017 4:25 AM [facility] Lymphocytes % 9.9(L) 19.7 - 55.1 % 09/16/2017 4:25 AM [facility] Monocytes % 7.0 3.0 - 15.0 % 09/16/2017 4:25 AM [facility] Eosinophils % 2.2 0.0 - 6.0 % 09/16/2017 4:25 AM [facility] Basophil % 0.2 0.0 - 1.5 % 09/16/2017 4:25 AM [facility] Neutrophils Absolute 6.8 1.6 - 7.0 10? 3 /uL 09/16/2017 4:25 AM [facility] Lymphocyte Absolute 0.8 0.8 - 2.9 10? 3 /uL 09/16/2017 4:25 AM [facility] Monocytes Absolute 0.59 0.14 - 0.66 10? 3 /uL 09/16/2017 4:25 AM [facility] Eosinophils Absolute 0.19 0.00 - 0.22 10? 3 /uL 09/16/2017 4:25 AM [facility] Basophils Absolute 0.02 0.00 - 0.06 10? 3 /uL 09/16/2017 4:25 AM [facility] Immature Granulocytes % 0.7 0.0 - 1.0 % 09/16/2017 4:25 AM [facility] Blood BLOOD SPECIMEN / Unknown Venipuncture / Unknown 09/16/2017 4:13 AM CDT 09/16/2017 4:18 AM CDT Veronica Costello MD LAB - HEMATOLOGY ORD ERABLES [facility] [address] [place] [address] * MAGNESIUM BLOOD (09/16/2017 4:13 AM CDT) Magnesium 2.1 1.6 - 2.6 mg/dL 09/16/2017 4:39 AM T [facility] Blood BLOOD SPECIMEN / Unknown Venipuncture / Unknown 09/16/2017 4:13 AM CDT 09/16/2017 4:17 AM CDT Veronica Costello MD LAB - CHEMISTRY ROYCE KLINE [facility] [address] [phone] * (ABNORMAL) BASIC METABOLIC PANEL (CALCIUM TOTAL) (09/16/2017 4:13 AM CDT) BUN 18 7 - 26 mg/dL 09/16/2017 4:39 AM [facility] Creatinine 0.6 0.6 - 1.2 mg/dL 09/16/2017 4:39 AM [facility] Sodium 138 136 - 145 mmol/L 09/16/2017 4:39 AM [facility] Potassium 4.1 3.5 - 4.5 mmol/L 09/16/2017 4:39 AM [facility] Chloride 96(L) 98 - 107 mmol/L 09/16/2017 4:39 AM [facility] CO2 32(H) 22 - 29 mmol/L 09/16/2017 4:39 AM [facility] Glucose 92 70 - 115 mg/dL 09/16/2017 4:39 AM [facility] Calcium 8.8 8.4 - 10.2 mg/dL 09/16/2017 4:39 AM [facility] Anion Gap 14 8 - 18 09/16/2017 4:39 AM [facility] BUN/Creatinine Ratio 30(H) 7 - 23 09/16/2017 4:39 AM [facility] Osmolality Calculated 288 270 - 300 mOsm/kg 09/16/2017 4:39 AM [facility] eGFR >60 >60 mL/min/1.7 3 m2 09/16/2017 4:39 AM [facility] Blood BLOOD SPECIMEN / Unknown Venipuncture / Unknown 09/16/2017 4:13 AM CDT 09/16/2017 4:17 AM CDT Veronica Costello MD LAB - CHEMISTRY ROYCE KLINE [facility] [address] [phone] * PHOSPHORUS BLOOD (09/16/2017 4:13 AM CDT) Phosphorus 2.6 2.3 - 4.7 mg/dL 09/16/2017 4:39 AM CDT [facility] Blood BLOOD SPECIMEN / Unknown Venipuncture / Unknown 09/16/2017 4:13 AM CDT 09/16/2017 4:17 AM CDT Delphine Waddell [facility] LAB - CHEMISTRY ORDERABLES [address] [phone] * GLUCOSE - POINT OF CARE (09/16/2017 12:23 AM CDT) Glucose WB/POC 89 70 - 115 mg/dL 09/16/2017 12:36 AM CDT [facility] Blood BLOOD SPECIMEN / Unknown 09/16/2017 12:23 AM CDT 09/16/2017 12:36 AM CDT [facility] - 09/16/2017 12:36 AM CDT Construction Producer: LYUBOV ?MARCOS Jason Nash MD LAB - POINT OF CARE ORDERABLES [address] [phone] * GLUCOSE - POINT OF CARE (09/15/2017 6:01 PM CDT) Glucose WB/POC 99 70 - 115 mg/dL 09/15/2017 6:33 PM CDT [facility] Blood BLOOD SPECIMEN / Unknown 09/15/2017 6:01 PM CDT 09/15/2017 6:33 PM CDT [facility] - 09/15/2017 6:33 PM CDT Construction Producer: SG ??JOSE L Jason Nash MD LAB - POINT OF CARE ORDERABLES [address] [phone] * GLUCOSE - POINT OF CARE (09/15/2017 11:56 AM CDT) Glucose WB/POC 104 70 - 115 mg/dL 09/15/2017 12:09 PM CDT [facility] Blood BLOOD SPECIMEN / Unknown 09/15/2017 11:56 AM CDT 09/15/2017 12:09 PM CDT Narrative [facility] - 09/15/2017 12:09 PM CDT Construction Producer: CHELA ??GLADYS Jason Nash MD LAB - POINT OF CARE ORDERABLES [address] [address], [facility] [phone] * EGD (09/15/2017 8:58 AM CDT) Report [...] insertion. The externally ? removable 24 Fr Lonny-Vilynx gastrostomy tube was lubricated. The G-tube ? [...] Procedure Code(s): ? --- Professional --- ? 51396, Esophagogastroduoden oscopy, flexible, transoral; with directed ? placement of percutaneous gastrostomy tube Diagnosis Code(s): ?--- Professional --- ?R13.10, Dysphagia, unspecified ?Z43.1, Encounter for attention to gastrostomy ?R63.3, Feeding difficulties CPT copyright 2016 [employer]. All rights reserved. The codes documented in this report are preliminary and upon supervisor order takers review may be revised to meet current compliance requirements. Louis Mcconnell MD 09/15/2017 10:44:23 AM Note Initiated On: 09/15/2017 8:58 AM Number of Addenda: 0 ? [facility] ? [address] [place] [address] 09/15/2017 8:58 AM CDT Louis Mcconnell MD GI PROCEDURE ORDERAB LES Performing Organization Address [facility] Co de Phone Number [facility] * GLUCOSE - POINT OF CARE (09/15/2017 8:05 AM CDT) Glucose WB/POC 97 70 - 115 mg/dL 09/15/2017 8:18 AM CDT [facility] Blood BLOOD SPECIMEN / Unknown 09/15/2017 8:05 AM CDT 09/15/2017 8:18 AM CDT Narrative [facility] - 09/15/2017 8:18 AM CDT Construction Producer: CHELA ?CRISTINA Jason Nash MD LAB - POINT OF CARE ORDERABLES Performing Organization Address [facility] Co de Phone Number [facility] [address] [phone] * XR CHEST 1VW PORTABLE (09/15/2017 5:22 [...] is normal. Dictated by Jay Bowens MD (radiology transcriptionist). This report was approved ??by Jay Bowens [...] is normal. Dictated by Jay Bowens MD (radiology transcriptionist). This report was approved by Jay Bowens Dr on 09/16/2017 4:35 PM . I, Dr. PAOLO AGUILAR M.D. have personally reviewed and interpreted this examination/study. This report was electronically signed by PAOLO AGUILAR M.D. on 09/16/2017 5:29 PM . Veronica Costello MD DIAGNOSTIC IMAGING O RDERABLES * (ABNORMAL) DIFFERENTIAL MANUAL (09/15/2017 4:41 AM [facility]) WBC (corrected for NRBC) 8.6 10? 3 /uL 09/15/2017 6:06 AM [facility] Total Cell Count 100 09/16/19 18 6:06 AM [facility] Neutrophils Absolute Manual 7.48(H) 1.60 - 7.00 10? 3 /uL 09/15/2017 6:06 AM [facility] Comment:(BANDS+SEGS) x WBC = NEUT # (ANC) Lymphocyte Absolute Manual 0.77(L) 0.80 - 2.90 10? 3 /uL 09/15/2017 6:06 AM [facility] Monocytes Absolute Manual 0.34 0.14 - 0.66 10? 3 /uL 09/15/2017 6:06 AM [facility] Neutrophil % Manual 87(H) 30 - 60 % 09/15/2017 6:06 AM [facility] Lymphocyte % Manual 9(L) 20 - 45 % 09/15/2017 6:06 AM [facility] Monocytes % Manual 4 2 - 10 % 09/15/2017 6:06 AM [facility] Platelet Estimate Adequate Adequate 09/15/2017 6:06 AM [facility] Anisocytosis 1+(A) None 09/15/2017 6:06 AM [facility] Hypochromia 1+(A) None 09/15/2017 6:06 AM [facility] Schistocytes Few(A) None 09/15/2017 6:06 AM [facility] Ovalocytes 1+(A) None 09/15/2017 6:06 AM [facility] Blood BLOOD SPECIMEN / Unknown Venipuncture / Unknown 09/15/2017 4:41 AM CDT 09/15/2017 4:56 AM CDT Veronica Costello MD LAB - HEMATOLOGY ORD ERABLES Performing Organization Address [facility]/ZIP Co de Phone Number [address] [phone] * TYPE + SCREEN PANEL (09/15/2017 4:41 AM CDT) Pathologist [facility] Antibody Screen NEG 8 6:06 AM CDT [facility] BLOOD BANK LAB ABO Rh A POS 09/15/2017 6:06 AM CDT [facility] LAB Blood Bank BLOOD SPECIMEN / Unknown Venipuncture / Unknown 09/15/2017 4:41 AM CDT 09/15/2017 5:13 AM CDT Delphine EAGLE LAB - BLOOD BANK ORDERABLES Performing Organization Address [facility] Co de Phone Number [facility] BLOOD [facility] LAB [address] * (ABNORMAL) CBC W AUTO DIFFERENTIAL (09/15/2017 4:41 AM CDT) [facility] WBC 8.6 3.5 - 10.5 10? 3 /uL 09/15/2017 5:20 AM [facility] RBC 2.89(L) 4.30 - 5.70 10? 6 /uL 09/15/2017 5:20 AM [facility] Hemoglobin 8.2(L) 13.5 - 17.5 g/dL 09/15/2017 5:20 AM [facility] Hematocrit 27.6(L) 39.0 - 50.0 % 09/15/2017 5:20 AM [facility] MCV 95.5 81.0 - 97.0 fL 09/15/2017 5:20 AM [facility] MCH 28.4 28.0 - 34.0 pg 09/15/2017 5:20 AM T [facility] MCHC 29.7(L) 32.0 - 36.0 g/dL 09/15/2017 5:20 AM [facility] Platelet Count 186 150 - 400 10? 3 /uL 09/15/2017 5:20 AM T [facility] RDW-SD 74.8(H) 36.0 - 50.0 fL 09/15/2017 5:20 AM T [facility] RDW-CV 22.0(H) 11.2 - 14.8 % 09/15/2017 5:20 AM T [facility] MPV 13.1(H) 9.3 - 12.8 fL 09/15/2017 5:20 AM T [facility] Blood BLOOD SPECIMEN / Unknown Venipuncture / Unknown 09/15/2017 4:41 AM CDT 09/15/2017 4:56 AM CDT Veronica Costello MD LAB - HEMATOLOGY ORD ERABLES Performing Organization Address [facility]/ZIP Co de Phone Number [address] [phone] * MAGNESIUM BLOOD (09/15/2017 4:41 AM CDT) Magnesium 1.8 1.6 - 2.6 mg/dL 09/15/2017 5:51 AM T [facility] Blood BLOOD SPECIMEN / Unknown Venipuncture / Unknown 09/15/2017 4:41 AM CDT 09/15/2017 4:56 AM CDT Veronica Costello MD LAB - CHEMISTRY ORDMarj RABANGELIA Performing Organization Address City/[facility]/ZIP Co de Phone Number [address] [phone] * (ABNORMAL) BASIC METABOLIC PANEL (CALCIUM TOTAL) (09/15/2017 4:41 AM CDT) BUN 23 7 - 26 mg/dL 09/15/2017 5:51 AM T [facility] Creatinine 0.6 0.6 - 1.2 mg/dL 09/15/2017 5:51 AM T [facility] Sodium 138 136 - 145 mmol/L 09/15/2017 5:51 AM T [facility] Potassium 3.8 3.5 - 4.5 mmol/L 09/15/2017 5:51 AM [facility] Chloride 95(L) 98 - 107 mmol/L 09/15/2017 5:51 AM [facility] CO2 33(H) 22 - 29 mmol/L 09/15/2017 5:51 AM [facility] Glucose 103 70 - 115 mg/dL 09/15/2017 5:51 AM [facility] Calcium 8.8 8.4 - 10.2 mg/dL 09/15/2017 5:51 AM [facility] Anion Gap 14 8 - 18 09/15/2017 5:51 AM [facility] BUN/Creatinine Ratio 38(H) 7 - 23 09/15/2017 5:51 AM [facility] Osmolality Calculated 290 270 - 300 mOsm/kg 09/15/2017 5:51 AM [facility] eGFR >60 >60 mL/min/1.7 3 m2 09/15/2017 5:51 AM [facility] Blood BLOOD SPECIMEN / Unknown Venipuncture / Unknown 09/15/2017 4:41 AM CDT 09/15/2017 4:56 AM CDT Veronica Costello MD LAB - CHEMISTRY ROYCE [facility] Organization Address City/State/ZIP Co de Phone Number [facility] [address] [place] [address] * (ABNORMAL) B-TYPE NATRIURETIC PEPTIDE (09/15/2017 4:41 AM CDT) BNP 694(H) See Comment pg/mL 09/15/2017 5:35 AM [facility] Comment: A decision threshold of 100 [...] Costello MD LAB - CHEMISTRY ROYCE KLINE [facility] [address] [place] [address], [facility] [phone] * (ABNORMAL) PT-INR [facility] (09/15/2017 4:41 AM CDT) PT 15.1(H) 12.1 - 14.8 Seconds 09/15/2017 5:33 AM CDT [facility] INR 1.2 See Comment 09/15/2017 5:33 AM CDT [facility] Comment: Suggested therapeutic range for low-intensity [...] - COAGULATION OR DERABLES Performing Organization Address [facility] Co de Phone Number [address] [phone] * (ABNORMAL) GLUCOSE - POINT OF CARE (09/15/2017 2:23 AM CDT) Glucose WB/POC 145(H) 70 - 115 mg/dL 09/15/2017 2:38 AM CDT [facility] Blood BLOOD SPECIMEN / Unknown 09/15/2017 2:23 AM CDT 09/15/2017 2:38 AM CDT [facility] - 09/15/2017 2:38 AM CDT Construction Producer: SHEREE ?NAVEEN Jason Nash MD LAB - POINT OF CARE ORDERABLES Performing Organization Address [facility] Co de Phone Number [address] [phone] * (ABNORMAL) GLUCOSE - POINT OF CARE (09/14/2017 7:45 PM CDT) Glucose WB/POC 165(H) 70 - 115 mg/dL 09/14/2017 8:08 PM CDT [facility] Blood BLOOD SPECIMEN / Unknown 09/14/2017 7:45 PM CDT 09/14/2017 8:08 PM CDT Narrative [facility] - 09/14/2017 8:08 PM CDT Construction Producer: SHEREE ?NAVEEN Jason Nash MD LAB - POINT OF CARE ORDERABLES [address] [phone] * (ABNORMAL) GLUCOSE - POINT OF CARE (09/14/2017 6:27 PM CDT) Glucose WB/POC 170(H) 70 - 115 mg/dL 09/14/2017 6:48 PM CDT [facility] Blood BLOOD SPECIMEN / Unknown 09/14/2017 6:27 PM CDT 09/14/2017 6:48 PM CDT Narrative [facility] - 09/14/2017 6:48 PM CDT Construction Producer: STRUM ?WYATT Jason Nash MD LAB - POINT OF CARE ORDERABLES Performing Organization Address City/[facility]/ZIP Co de Phone Number [address] [phone] * (ABNORMAL) GLUCOSE - POINT OF CARE (09/14/2017 12:46 PM CDT) Glucose WB/POC 183(H) 70 - 115 mg/dL 09/14/2017 1:16 PM CDT [facility] Blood BLOOD SPECIMEN / Unknown 09/14/2017 12:46 PM CDT 09/14/2017 1:16 PM CDT Narrative [facility] - 09/14/2017 1:16 PM CDT Construction Producer: STRUM ?WYATT Jason Nash MD LAB - POINT OF CARE ORDERABLES [address] [phone] * (ABNORMAL) GLUCOSE - POINT OF CARE (09/14/2017 6:34 AM CDT) Glucose WB/POC 149(H) 70 - 115 mg/dL 09/14/2017 6:48 AM CDT [facility] Blood BLOOD SPECIMEN / Unknown 09/14/2017 6:34 AM CDT 09/14/2017 6:48 AM CDT Narrative [facility] - 09/14/2017 6:48 AM CDT Construction Producer: SHEREE ?NAVEEN Jason Nash MD LAB - POINT OF CARE ORDERABLES [facility] [address] [place] [address], [facility] [phone] * XR CHEST 1VW PORTABLE (09/14/2017 6:19 [...] vascular congestion. Dictated by Jay Bowens MD (radiology transcriptionist). I, Dr. SULLY RUANO M.D. have personally [...] vascular congestion. Dictated by Jay Bowens MD (radiology transcriptionist). I, Dr. SULLY RUANO M.D. have personally reviewed and interpreted this examination/study. This report was electronically signed by SULLY RUANO M.D. on 09/14/2017 10:19 AM . Veronica Costello MD DIAGNOSTIC IMAGING O RDERABLES * (ABNORMAL) DIFFERENTIAL MANUAL (09/14/2017 5:21 AM CDT) WBC (corrected for NRBC) 10.1 10? 3 /uL 09/14/2017 6:45 AM [facility] Total Cell Count 100 09/14/2017 6:45 AM [facility] Neutrophils Absolute Manual 8.08(H) 1.60 - 7.00 10? 3 /uL 09/14/2017 6:45 AM [facility] Comment:(BANDS+SEGS) x WBC = NEUT # (ANC) Lymphocyte Absolute Manual 0.61(L) 0.80 - 2.90 10? 3 /uL 09/14/2017 6:45 AM [facility] Monocytes Absolute Manual 1.31(H) 0.14 - 0.66 10? 3 /uL 09/14/2017 6:45 AM [facility] Eosinophils Absolute Manual 0.10 0.00 - 0.22 10? 3 /uL 09/14/2017 6:45 AM [facility] Band % Manual 2 0 - 10 % 09/14/2017 6:45 AM [facility] Neutrophil % Manual 78(H) 30 - 60 % 09/14/2017 6:45 AM [facility] Lymphocyte % Manual 6(L) 20 - 45 % 09/14/2017 6:45 AM [facility] Monocytes % Manual 13(H) 2 - 10 % 09/14/2017 6:45 AM [facility] Eosinophils % Manual 1 1 - 6 % 09/14/2017 6:45 AM [facility] Platelet Estimate Adequate Adequate 09/14/2017 6:45 AM [facility] RBC Morphology Normal 09/14/2017 6:45 AM [facility] Blood BLOOD SPECIMEN / Unknown Venipuncture / Unknown 09/14/2017 5:21 AM CDT 09/14/2017 5:30 AM CDT Veronica Costello MD LAB - HEMATOLOGY ORD ERABLES Performing Organization Address City/State/[facility] Co de Phone Number [facility] [address] [place] [address] * (ABNORMAL) CBC W AUTO DIFFERENTIAL (09/14/2017 5:21 AM CDT) WBC 10.1 3.5 - 10.5 10? 3 /uL 09/14/2017 5:52 AM [facility] Comment:The WBC count is cor rected by the instrument for nRBC's RBC 3.00(L) 4.30 - 5.70 10? 6 /uL 09/14/2017 5:52 AM [facility] Hemoglobin 8.7(L) 13.5 - 17.5 g/dL 09/14/2017 5:52 AM [facility] Hematocrit 28.4(L) 39.0 - 50.0 % 09/14/2017 5:52 AM [facility] MCV 94.7 81.0 - 97.0 fL 09/14/2017 5:52 AM [facility] MCH 29.0 28.0 - 34.0 pg 09/14/2017 5:52 AM [facility] MCHC 30.6(L) 32.0 - 36.0 g/dL 09/14/2017 5:52 AM [facility] Platelet Count 224 150 - 400 10? 3 /uL 09/14/2017 5:52 AM CDT [facility] RDW-SD 75.0(H) 36.0 - 50.0 fL 09/14/2017 5:52 AM CDT [facility] RDW-CV 21.9(H) 11.2 - 14.8 % 09/14/2017 5:52 AM CDT [facility] MPV 13.2(H) 9.3 - 12.8 fL 09/14/2017 5:52 AM CDT [facility] nRBC Absolute 0.15(H) 0 10? 3 /uL 09/14/2017 5:52 AM T [facility] nRBC Auto 1.5(H) 0 /100 WBC 09/14/2017 5:52 AM T [facility] Reflex Status Manual Differential to follow. 09/14/2017 5:52 AM T [facility] Blood BLOOD SPECIMEN / Unknown Venipuncture / Unknown 09/14/2017 5:21 AM CDT 09/14/2017 5:30 AM CDT Veronica Costello MD LAB - HEMATOLOGY ORD ERABLES [address] [phone] * MAGNESIUM BLOOD (09/14/2017 5:21 AM CDT) Magnesium 1.6 1.6 - 2.6 mg/dL 09/14/2017 5:53 AM T [facility] Blood BLOOD SPECIMEN / Unknown Venipuncture / Unknown 09/14/2017 5:21 AM CDT 09/14/2017 5:30 AM CDT Vreonica Costello MD LAB - CHEMISTRY ORDMarj KLINE [address] [phone] * (ABNORMAL) BASIC METABOLIC PANEL (CALCIUM TOTAL) (09/14/2017 5:21 AM CDT) BUN 21 7 - 26 mg/dL 09/14/2017 5:53 AM [facility] Creatinine 0.6 0.6 - 1.2 mg/dL 09/14/2017 5:53 AM [facility] Sodium 138 136 - 145 mmol/L 09/14/2017 5:53 AM [facility] Potassium 3.7 3.5 - 4.5 mmol/L 09/14/2017 5:53 AM [facility] Chloride 96(L) 98 - 107 mmol/L 09/14/2017 5:53 AM [facility] CO2 32(H) 22 - 29 mmol/L 09/14/2017 5:53 AM [facility] Glucose 136(H) 70 - 115 mg/dL 09/14/2017 5:53 AM [facility] Calcium 8.7 8.4 - 10.2 mg/dL 09/14/2017 5:53 AM [facility] Anion Gap 14 8 - 18 09/14/2017 5:53 AM [facility] BUN/Creatinine Ratio 35(H) 7 - 23 09/14/2017 5:53 AM [facility] Osmolality Calculated 291 270 - 300 mOsm/kg 09/14/2017 5:53 AM [facility] eGFR >60 >60 mL/min/1.7 3 m2 09/14/2017 5:53 AM [facility] Blood BLOOD SPECIMEN / Unknown Venipuncture / Unknown 09/14/2017 5:21 AM CDT 09/14/2017 5:30 AM T Veronica Costello MD LAB - CHEMISTRY ROYCE KLINE [facility] Organization Address City/State/ZIP Co de Phone Number [facility] [address] [place] [address] * GLUCOSE - POINT OF CARE (09/14/2017 12:20 AM CDT) Glucose WB/POC 88 70 - 115 mg/dL 09/14/2017 12:35 AM [facility] Blood BLOOD SPECIMEN / Unknown 09/14/2017 12:20 AM CDT 09/14/2017 12:35 AM CDT Narrative [facility] - 09/14/2017 12:35 AM CDT Construction Producer: BENTLEY ?NAVEEN Jason Nash MD LAB - [place] [address], [facility] [phone] * XR ABDOMEN KUB (09/13/2017 7:16 PM [...] partially imaged. Dictated by Jay Bowens MD (radiology transcriptionist). Dr. SULLY Stringer M.D. have personally reviewed [...] partially imaged. Dictated by Jay Bowens MD (radiology transcriptionist). Dr. SULLY Stringer M.D. have personally reviewed and interpreted this examination/study. This report was electronically signed by SULLY RUANO M.D. on 09/14/2017 10:16 AM . Ivonne Rubin MD DIAGNOSTIC IMAGING O RDERABLES * GLUCOSE - POINT OF CARE (09/13/2017 6:45 PM CDT) Glucose WB/POC 91 70 - 115 mg/dL 09/13/2017 6:58 PM CDT [facility] Blood BLOOD SPECIMEN / Unknown 09/13/2017 6:45 PM CDT 09/13/2017 6:58 PM CDT Narrative [facility] - 09/13/2017 6:58 PM CDT Construction Producer: Ajith) ??GLENDY Jason Nash MD LAB - POINT OF CARE ORDERABLES [address] [phone] * GLUCOSE - POINT OF CARE (09/13/2017 11:14 AM CDT) Glucose WB/POC 108 70 - 115 mg/dL 09/13/2017 11:45 AM CDT [facility] Blood BLOOD SPECIMEN / Unknown 09/13/2017 11:14 AM CDT 09/13/2017 11:45 AM CDT [facility] - 09/13/2017 11:45 AM CDT Construction Producer: Ajith) ??GLENDY Jason Nash MD LAB - POINT OF CARE ORDERABLES [address] [phone] * GLUCOSE - POINT OF CARE (09/13/2017 7:02 AM CDT) Glucose WB/POC 101 70 - 115 mg/dL 09/13/2017 7:40 AM CDT [facility] Blood BLOOD SPECIMEN / Unknown 09/13/2017 7:02 AM CDT 09/13/2017 7:40 AM CDT Narrative [facility] - 09/13/2017 7:40 AM CDT Construction Producer: RIKKI ??DANIELLE Jason Nash MD LAB - POINT OF CARE ORDERABLES [address] [phone] * XR CHEST 1VW PORTABLE (09/13/2017 5:20 [...] remains enlarged. Dictated by Jay Bowens MD (radiology transcriptionist). I, Dr. SILAS NGUYỄN MD have personally [...] remains enlarged. Dictated by Jay Bowens MD (radiology transcriptionist). I, Dr. SILAS NGUYỄN MD have personally reviewed and interpreted this examination/study. This report was electronically signed by SILAS NGUYỄN MD on09/13/2017 11:53 AM . Veronica oCstello MD DIAGNOSTIC IMAGING O RDERABLES * (ABNORMAL) RBC MORPHOLOGY (09/13/2017 5:17 AM CDT) Pathologist [facility] Macrocytosis 1+(A) None 09/13/2017 6:30 AM [facility] Blood BLOOD SPECIMEN / Unknown Venipuncture / Unknown 09/13/2017 5:17 AM CDT 09/13/2017 5:23 AM CDT Veronica Costello MD LAB - HEMATOLOGY ORD ERABLES Performing Organization Address City/State/[facility] Co de Phone Number [address] [phone] * (ABNORMAL) CBC W AUTO DIFFERENTIAL (09/13/2017 5:17 AM CDT) Pathologist [facility] WBC 8.9 3.5 - 10.5 10? 3 /uL 09/13/2017 6:30 AM [facility] RBC 2.95(L) 4.30 - 5.70 10? 6 /uL 09/13/2017 6:30 AM [facility] Hemoglobin 8.5(L) 13.5 - 17.5 g/dL 09/13/2017 6:30 AM [facility] Hematocrit 27.6(L) 39.0 - 50.0 % 09/13/2017 6:30 AM [facility] MCV 93.6 81.0 - 97.0 fL 09/13/2017 6:30 AM [facility] MCH 28.8 28.0 - 34.0 pg 09/13/2017 6:30 AM [facility] MCHC 30.8(L) 32.0 - 36.0 g/dL 09/13/2017 6:30 AM [facility] Platelet Count 213 150 - 400 10? 3 /uL 09/13/2017 6:30 AM [facility] RDW-SD 70.6(H) 36.0 - 50.0 fL 09/13/2017 6:30 AM [facility] RDW-CV 21.5(H) 11.2 - 14.8 % 09/13/2017 6:30 AM [facility] MPV 13.0(H) 9.3 - 12.8 fL 09/13/2017 6:30 AM [facility] Neutrophils % 82.9(H) 35.0 - 70.0 % 09/13/2017 6:30 AM [facility] Lymphocytes % 10.1(L) 19.7 - 55.1 % 09/13/2017 6:30 AM [facility] Monocytes % 3.4 3.0 - 15.0 % 09/13/2017 6:30 AM [facility] Eosinophils % 3.4 0.0 - 6.0 % 09/13/2017 6:30 AM [facility] Basophil % 0.2 0.0 - 1.5 % 09/13/2017 6:30 AM [facility] Neutrophils Absolute 7.4(H) 1.6 - 7.0 10? 3 /uL 09/13/2017 6:30 AM [facility] Lymphocyte Absolute 0.9 0.8 - 2.9 10? 3 /uL 09/13/2017 6:30 AM [facility] Monocytes Absolute 0.30 0.14 - 0.66 10? 3 /uL 09/13/2017 6:30 AM [facility] Eosinophils Absolute 0.30(H) 0.00 - 0.22 10? 3 /uL 09/13/2017 6:30 AM [facility] Basophils Absolute 0.02 0.00 - 0.06 10? 3 /uL 09/13/2017 6:30 AM [facility] Reflex Status Morphology review to follow. 09/13/2017 6:30 AM [facility] Comment:This is an appended report. These results have been appended to a previously final verified report. Immature Granulocytes % 0.8 0.0 - 1.0 % 09/13/2017 6:30 AM [facility] Blood BLOOD SPECIMEN / Unknown Venipuncture / Unknown 09/13/2017 5:17 AM CDT 09/13/2017 5:23 AM CDT Veronica Costello MD LAB - HEMATOLOGY ORD ERABLES [address] [phone] * MAGNESIUM BLOOD (09/13/2017 5:17 AM CDT) Magnesium 1.6 1.6 - 2.6 mg/dL 09/13/2017 5:41 AM [facility] Blood BLOOD SPECIMEN / Unknown Venipuncture / Unknown 09/13/2017 5:17 AM CDT 09/13/2017 5:23 AM CDT Veronica Costello MD LAB - CHEMISTRY ORDE RAISA Performing Organization Address City/[facility]/ZIP Co de Phone Number [address] [phone] * (ABNORMAL) BASIC METABOLIC PANEL (CALCIUM TOTAL) (09/13/2017 5:17 AM CDT) BUN 26 7 - 26 mg/dL 09/13/2017 5:41 AM [facility] Creatinine 0.6 0.6 - 1.2 mg/dL 09/13/2017 5:41 AM [facility] Sodium 139 136 - 145 mmol/L 09/13/2017 5:41 AM [facility] Potassium 4.6(H) 3.5 - 4.5 mmol/L 09/13/2017 5:41 AM [facility] Chloride 96(L) 98 - 107 mmol/L 09/13/2017 5:41 AM [facility] CO2 31(H) 22 - 29 mmol/L 09/13/2017 5:41 AM [facility] Glucose 96 70 - 115 mg/dL 09/13/2017 5:41 AM [facility] Calcium 9.0 8.4 - 10.2 mg/dL 09/13/2017 5:41 AM [facility] Anion Gap 17 8 - 18 09/13/2017 5:41 AM CDT [facility] BUN/Creatinine Ratio 43(H) 7 - 23 09/13/2017 5:41 AM CDT [facility] Osmolality Calculated 293 270 - 300 mOsm/kg 09/13/2017 5:41 AM T [facility] eGFR >60 >60 mL/min/1.7 3 m2 09/13/2017 5:41 AM CDT [facility] Blood BLOOD SPECIMEN / Unknown Venipuncture / Unknown 09/13/2017 5:17 AM CDT 09/13/2017 5:23 AM CDT Veronica Costello MD LAB - CHEMISTRY [place] [facility] [address] [phone] * (ABNORMAL) GLUCOSE - POINT OF CARE (09/12/2017 11:49 PM CDT) Glucose WB/POC 124(H) 70 - 115 mg/dL 09/13/2017 12:02 AM CDT [facility] Blood BLOOD SPECIMEN / Unknown 09/12/2017 11:49 PM CDT 09/13/2017 12:02 AM CDT [facility] - 09/13/2017 12:02 AM CDT [employer] Producer: TEETEE ??BETO Jason Nash MD LAB - POINT OF CARE ORDERABLES [address] [phone] * GLUCOSE - POINT OF CARE (09/12/2017 6:32 PM CDT) Glucose WB/POC 106 70 - 115 mg/dL 09/12/2017 6:58 PM CDT [facility] Blood BLOOD SPECIMEN / Unknown 09/12/2017 6:32 PM CDT 09/12/2017 6:58 PM CDT [facility] - 09/12/2017 6:58 PM CDT Construction Producer: REUBEN FAGAN Jason Nash MD LAB - POINT OF CARE ORDERABLES Performing Organization Address City/[facility]/ZIP Co de Phone Number [address] [phone] * GLUCOSE - POINT OF CARE (09/12/2017 1:33 PM CDT) [facility] Glucose WB/POC 99 70 - 115 mg/dL 09/12/2017 1:55 PM CDT [facility] Blood BLOOD SPECIMEN / Unknown 09/12/2017 1:33 PM CDT 09/12/2017 1:55 PM CDT Narrative [facility] - 09/12/2017 1:55 PM CDT Construction Producer: REUBEN FAGAN Jason Nash MD LAB - POINT OF CARE ORDERABLES Performing Organization Address [facility] Co de Phone Number [address] [phone] * (ABNORMAL) DIFFERENTIAL MANUAL (09/12/2017 5:14 AM CDT) [facility] WBC (corrected for NRBC) 9.5 10? 3 /uL 09/12/2017 8:05 AM [facility] Total Cell Count 100 09/13/19 18 8:05 AM [facility] Neutrophils Absolute Manual 7.70(H) 1.60 - 7.00 10? 3 /uL 09/12/2017 8:05 AM [facility] Comment:(BANDS+SEGS) x WBC = NEUT # (ANC) Lymphocyte Absolute Manual 0.57(L) 0.80 - 2.90 10? 3 /uL 09/12/2017 8:05 AM [facility] Monocytes Absolute Manual 0.86(H) 0.14 - 0.66 10? 3 /uL 09/12/2017 8:05 AM [facility] Eosinophils Absolute Manual 0.38(H) 0.00 - 0.22 10? 3 /uL 09/12/2017 8:05 AM [facility] Neutrophil % Manual 81(H) 30 - 60 % 09/12/2017 8:05 AM [facility] Lymphocyte % Manual 6(L) 20 - 45 % 09/12/2017 8:05 AM [facility] Monocytes % Manual 9 2 - 10 % 09/12/2017 8:05 AM [facility] Eosinophils % Manual 4 1 - 6 % 09/12/2017 8:05 AM [facility] Platelet Estimate Adequate Adequate 018 8:05 AM [facility] Anisocytosis 1+(A) None 09/12/2017 8:05 AM [facility] Polychromasia 1+(A) None 09/12/2017 8:05 AM [facility] Ovalocytes 1+(A) None 09/12/2017 8:05 AM [facility] Blood BLOOD SPECIMEN / Unknown Venipuncture / Unknown 09/12/2017 5:14 AM CDT 09/12/2017 5:23 AM CDT Veronica Costello MD LAB - HEMATOLOGY ORD ERABLES Performing Organization Address City/State/[facility] Co de Phone Number [address] [phone] * (ABNORMAL) CBC W AUTO DIFFERENTIAL (09/12/2017 5:14 AM CDT) WBC 9.5 3.5 - 10.5 10? 3 /uL 09/12/2017 6:51 AM [facility] RBC 2.99(L) 4.30 - 5.70 10? 6 /uL 09/12/2017 6:51 AM [facility] Hemoglobin 8.6(L) 13.5 - 17.5 g/dL 09/12/2017 6:51 AM [facility] Hematocrit 28.8(L) 39.0 - 50.0 % 09/12/2017 6:51 AM [facility] MCV 96.3 81.0 - 97.0 fL 09/12/2017 6:51 AM [facility] MCH 28.8 28.0 - 34.0 pg 09/12/2017 6:51 AM [facility] MCHC 29.9(L) 32.0 - 36.0 g/dL 09/12/2017 6:51 AM [facility] Platelet Count 185 150 - 400 10? 3 /uL 09/12/2017 6:51 AM [facility] RDW-SD 74.2(H) 36.0 - 50.0 fL 09/12/2017 6:51 AM [facility] RDW-CV 21.8(H) 11.2 - 14.8 % 09/12/2017 6:51 AM [facility] MPV 13.6(H) 9.3 - 12.8 fL 09/12/2017 6:51 AM [facility] nRBC Absolute 0.00 0 10? 3 /uL 09/12/2017 6:51 AM [facility] nRBC Auto 0.0 0 /100 WBC 09/12/2017 6:51 AM [facility] Neutrophils % 81.8(H) 35.0 - 70.0 % 09/12/2017 6:51 AM [facility] Lymphocytes % 5.8(L) 19.7 - 55.1 % 09/12/2017 6:51 AM [facility] Monocytes % 8.6 3.0 - 15.0 % 09/12/2017 6:51 AM [facility] Eosinophils % 3.4 0.0 - 6.0 % 09/12/2017 6:51 AM [facility] Basophil % 0.4 0.0 - 1.5 % 09/12/2017 6:51 AM [facility] Neutrophils Absolute 7.7(H) 1.6 - 7.0 10? 3 /uL 09/12/2017 6:51 AM [facility] Lymphocyte Absolute 0.6(L) 0.8 - 2.9 10? 3 /uL 09/12/2017 6:51 AM [facility] Monocytes Absolute 0.81(H) 0.14 - 0.66 10? 3 /uL 09/12/2017 6:51 AM [facility] Eosinophils Absolute 0.32(H) 0.00 - 0.22 10? 3 /uL 09/12/2017 6:51 AM [facility] Basophils Absolute 0.04 0.00 - 0.06 10? 3 /uL 09/12/2017 6:51 AM [facility] Immature Granulocytes % 1.1(H) 0.0 - 1.0 % 09/12/2017 6:51 AM T [facility] Blood BLOOD SPECIMEN / Unknown Venipuncture / Unknown 09/12/2017 5:14 AM CDT 09/12/2017 5:23 AM CDT Veronica Costello MD LAB - HEMATOLOGY ORD ERABLES [address] [phone] * MAGNESIUM BLOOD (09/12/2017 5:14 AM CDT) Magnesium 1.6 1.6 - 2.6 mg/dL 09/12/2017 5:50 AM [facility] Blood BLOOD SPECIMEN / Unknown Venipuncture / Unknown 09/12/2017 5:14 AM CDT 09/12/2017 5:23 AM CDT Veronica Costello MD LAB - CHEMISTRY ORDE RABANGELIA [address] [phone] * (ABNORMAL) BASIC METABOLIC PANEL (CALCIUM TOTAL) (09/12/2017 5:14 AM CDT) BUN 35(H) 7 - 26 mg/dL 09/12/2017 5:50 AM [facility] Creatinine 0.7 0.6 - 1.2 mg/dL 09/12/2017 5:50 AM [facility] Sodium 139 136 - 145 mmol/L 09/12/2017 5:50 AM [facility] Potassium 5.0(H) 3.5 - 4.5 mmol/L 09/12/2017 5:50 AM [facility] Chloride 98 98 - 107 mmol/L 09/12/2017 5:50 AM [facility] CO2 28 22 - 29 mmol/L 09/12/2017 5:50 AM [facility] Glucose 96 70 - 115 mg/dL 09/12/2017 5:50 AM CDT [facility] Calcium 8.6 8.4 - 10.2 mg/dL 09/12/2017 5:50 AM T [facility] Anion Gap 18 8 - 18 09/12/2017 5:50 AM T [facility] BUN/Creatinine Ratio 50(H) 7 - 23 09/12/2017 5:50 AM T [facility] Osmolality Calculated 296 270 - 300 mOsm/kg 09/12/2017 5:50 AM T [facility] eGFR >60 >60 mL/min/1.7 3 m2 09/12/2017 5:50 AM T [facility] Blood BLOOD SPECIMEN / Unknown Venipuncture / Unknown 09/12/2017 5:14 AM CDT 09/12/2017 5:23 AM CDT Veronica Costello MD LAB - CHEMISTRY ROYCE KLINE [address] [phone] * GLUCOSE - POINT OF CARE (09/12/2017 5:12 AM CDT) Glucose WB/POC 113 70 - 115 mg/dL 09/12/2017 5:44 AM CDT [facility] Blood BLOOD SPECIMEN / Unknown 09/12/2017 5:12 AM CDT 09/12/2017 5:44 AM CDT Narrative [facility] - 09/12/2017 5:44 AM CDT Construction Producer: CARLOS ?JANET Jason Nash MD LAB - POINT OF CARE ORDERABLES [address] [phone] * GLUCOSE - POINT OF CARE (09/12/2017 1:14 AM CDT) Glucose WB/POC 114 70 - 115 mg/dL 09/12/2017 1:36 AM CDT [facility] Blood BLOOD SPECIMEN / Unknown 09/12/2017 1:14 AM CDT 09/12/2017 1:36 AM CDT Narrative [facility] - 09/12/2017 1:36 AM CDT Construction Producer: CARLOS ROSEN Jason Nash MD LAB - POINT OF CARE ORDERABLES Performing Organization Address City/[facility]/[place] [address], [facility] [phone] * (ABNORMAL) GLUCOSE - POINT OF CARE (09/11/2017 5:28 PM CDT) Glucose WB/POC 150(H) 70 - 115 mg/dL 09/11/2017 5:53 PM CDT [facility] Blood BLOOD SPECIMEN / Unknown 09/11/2017 5:28 PM CDT 09/11/2017 5:53 PM CDT Narrative [facility] - 09/11/2017 5:53 PM CDT Construction Producer: PRINCESS ?KAR Jason Nash MD LAB - POINT OF CARE ORDERABLES Performing Organization Address [facility]/[place] [address], [facility] [phone] * (ABNORMAL) GLUCOSE - POINT OF CARE (09/11/2017 11:49 AM CDT) Glucose WB/POC 116(H) 70 - 115 mg/dL 09/11/2017 12:03 PM CDT [facility] Blood BLOOD SPECIMEN / Unknown 09/11/2017 11:49 AM CDT 09/11/2017 12:03 PM CDT Narrative [facility] - 09/11/2017 12:03 PM CDT Construction Producer: PRINCESS CAMPBELL Jason Nash MD LAB - [place] [address], [facility] [phone] * TYPE + SCREEN PANEL (09/11/2017 6:50 AM CDT) Antibody Screen NEG 8 7:42 AM CDT [facility] BLOOD B[facility] LAB ABO Rh A POS 09/11/2017 7:42 AM CDT [facility] B[facility] LAB Blood Bank BLOOD SPECIMEN / Unknown Venipuncture / Unknown 09/11/2017 6:50 AM CDT 09/11/2017 6:59 AM CDT Veronica Costello MD LAB - BLOOD BANK ORD ERABLES [facility] BLOOD [facility] LAB [address] * XR CHEST 1VW (09/11/2017 6:33 [...] OF CARE (09/11/2017 5:54 AM CDT) Pathologist [facility] Glucose WB/POC 139(H) 70 - 115 mg/dL 09/11/2017 6:27 AM CDT [facility] Blood BLOOD SPECIMEN / Unknown 09/11/2017 5:54 AM CDT 09/11/2017 6:26 AM CDT Narrative [facility] - 09/11/2017 6:27 AM CDT Construction Producer: DEE ??HOA Jason Nash MD LAB - POINT OF CARE ORDERABLES [address] [phone] * (ABNORMAL) RBC MORPHOLOGY (09/11/2017 4:37 AM CDT) Pathologist [facility] Platelet Estimate Adequate Adequate 018 8:36 AM [facility] Anisocytosis 1+(A) None 09/11/2017 8:36 AM [facility] Polychromasia Occasional( A) None 09/11/2017 8:36 AM [facility] Target Cells Occasional( A) None 09/11/2017 8:36 AM [facility] Ovalocytes 1+(A) None 09/11/2017 8:36 AM [facility] Blood BLOOD SPECIMEN / Unknown Venipuncture / Unknown 09/11/2017 4:37 AM CDT 09/11/2017 4:55 AM CDT Veronica Costello MD LAB - HEMATOLOGY ORD ERABLES [facility] [address] [place] [address] * (ABNORMAL) CBC W AUTO DIFFERENTIAL (09/11/2017 4:37 AM CDT) WBC 11.0(H) 3.5 - 10.5 10? 3 /uL 09/11/2017 5:35 AM [facility] RBC 3.07(L) 4.30 - 5.70 10? 6 /uL 09/11/2017 5:35 AM [facility] Hemoglobin 8.7(L) 13.5 - 17.5 g/dL 09/11/2017 5:35 AM [facility] Hematocrit 29.4(L) 39.0 - 50.0 % 09/11/2017 5:35 AM [facility] MCV 95.8 81.0 - 97.0 fL 09/11/2017 5:35 AM [facility] MCH 28.3 28.0 - 34.0 pg 09/11/2017 5:35 AM [facility] MCHC 29.6(L) 32.0 - 36.0 g/dL 09/11/2017 5:35 AM [facility] Platelet Count 234 150 - 400 10? 3 /uL 09/11/2017 5:35 AM [facility] RDW-SD 71.3(H) 36.0 - 50.0 fL 09/11/2017 5:35 AM [facility] RDW-CV 21.4(H) 11.2 - 14.8 % 09/11/2017 5:35 AM [facility] MPV 12.9(H) 9.3 - 12.8 fL 09/11/2017 5:35 AM [facility] nRBC Absolute 0.05(H) 0 10? 3 /uL 09/11/2017 5:35 AM [facility] nRBC Auto 0.4(H) 0 /100 WBC 09/11/2017 5:35 AM [facility] Comment:Confirmed by repeat analysis. Neutrophils % 82.9(H) 35.0 - 70.0 % 09/11/2017 5:35 AM [facility] Lymphocytes % 6.3(L) 19.7 - 55.1 % 09/11/2017 5:35 AM [facility] Monocytes % 7.9 3.0 - 15.0 % 09/11/2017 5:35 AM [facility] Eosinophils % 2.6 0.0 - 6.0 % 09/11/2017 5:35 AM [facility] Basophil % 0.3 0.0 - 1.5 % 09/11/2017 5:35 AM [facility] Neutrophils Absolute 9.1(H) 1.6 - 7.0 10? 3 /uL 09/11/2017 5:35 AM [facility] Lymphocyte Absolute 0.7(L) 0.8 - 2.9 10? 3 /uL 09/11/2017 5:35 AM [facility] Monocytes Absolute 0.87(H) 0.14 - 0.66 10? 3 /uL 09/11/2017 5:35 AM [facility] Eosinophils Absolute 0.29(H) 0.00 - 0.22 10? 3 /uL 09/11/2017 5:35 AM [facility] Basophils Absolute 0.03 0.00 - 0.06 10? 3 /uL 09/11/2017 5:35 AM [facility] Reflex Status Morphology review to follow. 09/11/2017 5:35 AM [facility] Immature Granulocytes % 1.6(H) 0.0 - 1.0 % 09/11/2017 5:35 AM CDT [facility] Blood BLOOD SPECIMEN / Unknown Venipuncture / Unknown 09/11/2017 4:37 AM CDT 09/11/2017 4:55 AM CDT Veronica Costello MD LAB - HEMATOLOGY ORD ERABLES Performing Organization Address [facility]/ZIP Co de Phone Number [address] [phone] * MAGNESIUM BLOOD (09/11/2017 4:37 AM CDT) Magnesium 1.7 1.6 - 2.6 mg/dL 09/11/2017 5:25 AM T [facility] Blood BLOOD SPECIMEN / Unknown Venipuncture / Unknown 09/11/2017 4:37 AM CDT 09/11/2017 4:55 AM CDT Veronica Costello MD LAB - CHEMISTRY ORDE RAISA [address] [phone] * (ABNORMAL) BASIC METABOLIC PANEL (CALCIUM TOTAL) (09/11/2017 4:37 AM CDT) BUN 39(H) 7 - 26 mg/dL 09/11/2017 5:25 AM [facility] Creatinine 0.8 0.6 - 1.2 mg/dL 09/11/2017 5:25 AM [facility] Sodium 142 136 - 145 mmol/L 09/11/2017 5:25 AM [facility] Potassium 5.5(H) 3.5 - 4.5 mmol/L 09/11/2017 5:25 AM [facility] Chloride 101 98 - 107 mmol/L 09/11/2017 5:25 AM [facility] CO2 25 22 - 29 mmol/L 09/11/2017 5:25 AM [facility] Glucose 123(H) 70 - 115 mg/dL 09/11/2017 5:25 AM T [facility] Calcium 8.9 8.4 - 10.2 mg/dL 09/11/2017 5:25 AM CDT [facility] Anion Gap 22(H) 8 - 18 09/11/2017 5:25 AM T [facility] BUN/Creatinine Ratio 49(H) 7 - 23 09/11/2017 5:25 AM [facility] Osmolality Calculated 305(H) 270 - 300 mOsm/kg 09/11/2017 5:25 AM T [facility] eGFR >60 >60 mL/min/1.7 3 m2 09/11/2017 5:25 AM [facility] Blood BLOOD SPECIMEN / Unknown Venipuncture / Unknown 09/11/2017 4:37 AM CDT 09/11/2017 4:55 AM CDT Veronica Costello MD LAB - CHEMISTRY ROYCE KLINE [facility] [address] [place] [address] * (ABNORMAL) B-TYPE NATRIURETIC PEPTIDE (09/11/2017 4:37 AM CDT) BNP 806(H) See Comment pg/mL 09/11/2017 5:31 AM T [facility] Comment: A [...] - CHEMISTRY ROYCE KLINE Performing Organization Address City/State/[facility] Co de Phone Number [facility] [address] [phone] * PT-INR [facility] (09/11/2017 4:37 AM CDT) PT 14.1 12.1 - 14.8 Seconds 09/11/2017 5:15 AM CDT [facility] INR 1.1 See Comment 09/11/2017 5:15 AM CDT [facility] Comment: Suggested therapeutic range for low-intensity [...] - COAGULATION OR DERABLES Performing Organization Address [facility]/ZIP Co de Phone Number [address] [phone] * (ABNORMAL) GLUCOSE - POINT OF CARE (09/11/2017 12:01 AM CDT) Glucose WB/POC 116(H) 70 - 115 mg/dL 09/11/2017 12:21 AM CDT [facility] Blood BLOOD SPECIMEN / Unknown 09/11/2017 12:01 AM CDT 09/11/2017 12:21 AM CDT Narrative [facility] - 09/11/2017 12:21 AM CDT Construction Producer: DEE CHERY Jason Nash MD LAB - POINT OF CARE ORDERABLES Performing Organization Address [facility] Co de Phone Number [address] [phone] * (ABNORMAL) GLUCOSE - POINT OF CARE (09/10/2017 6:16 PM CDT) Glucose WB/POC 157(H) 70 - 115 mg/dL 09/10/2017 6:47 PM CDT [facility] Blood BLOOD SPECIMEN / Unknown 09/10/2017 6:16 PM CDT 09/10/2017 6:46 PM CDT Narrative [facility] - 09/10/2017 6:47 PM CDT Construction Producer: PRINCESS ??BINTA Jason Nash MD LAB - POINT OF CARE ORDERABLES Performing Organization Address City/[facility]/ZIP Co de Phone Number [address] [phone] * (ABNORMAL) GLUCOSE - POINT OF CARE (09/10/2017 12:57 PM CDT) Glucose WB/POC 141(H) 70 - 115 mg/dL 09/10/2017 1:24 PM CDT [facility] Blood BLOOD SPECIMEN / Unknown 09/10/2017 12:57 PM CDT 09/10/2017 1:24 PM CDT Narrative [facility] - 09/10/2017 1:24 PM CDT Construction Producer: PRINCESS ?KAR Jason Nash MD LAB - POINT OF CARE ORDERABLES [facility] [address] [place] [address] * (ABNORMAL) BLOOD GASES ART (09/10/2017 5:57 AM CDT) pH Arterial 7.45 7.35 - 7.45 09/10/2017 6:08 AM [facility] pCO2 Arterial 44 35 - 45 mmHg 09/10/2017 6:08 AM [facility] pO2 Arterial 80 71 - 95 mmHg 09/10/2017 6:08 AM [facility] HCO3 Arterial 30.0(H) 22.0 - 26.0 mmol/L 09/10/2017 6:08 AM [facility] TCO2 Arterial 31.3(H) 25.0 - 29.0 mmol/L 09/10/2017 6:08 AM [facility] Base Excess Arterial 5.4(H) -2.0 - 2.0 mmol/L 09/10/2017 6:08 AM [facility] Hemoglobin Arterial 8.2(L) 13.5 - 17.5 g/dL 09/10/2017 6:08 AM [facility] Oxyhemoglobin Arterial 94.5(L) 95.0 - 100.0 % 09/10/2017 6:08 AM [facility] Carboxyhemoglobin 0.3 0.0 - 3.0 % 09/10/2017 6:08 AM [facility] Methemoglobin 0.7 0.0 - 2.0 % 09/10/2017 6:08 AM [facility] FI O2 Arterial 40.0 % 09/10/2017 6:08 AM [facility] Blood, arterial ARTERIAL BLOOD SPECIMEN / Unknown Arterial Puncture / Unknown 09/10/2017 5:57 AM CDT 09/10/2017 6:05 AM CDT Delphine Waddell [facility] - BLOOD GASE S ORDERABLES [address] [phone] * (ABNORMAL) GLUCOSE - POINT OF CARE (09/10/2017 5:50 AM CDT) Glucose WB/POC 146(H) 70 - 115 mg/dL 09/10/2017 6:12 AM CDT [facility] Blood BLOOD SPECIMEN / Unknown 09/10/2017 5:50 AM CDT 09/10/2017 6:11 AM CDT Narrative [facility] - 09/10/2017 6:12 AM CDT Construction Producer: DEE ??HOA Jason Nash MD LAB - POINT OF CARE ORDERABLES Performing Organization Address [facility]/ZIP Co de Phone Number [address] [phone] * PTT [facility] (09/10/2017 5:49 AM CDT) APTT 29.7 23.0 - 38.4 Seconds 09/10/2017 5:58 AM CDT [facility] Comment: Suggested therapeutic range for full dose I.V. heparin therapy for venous thromboembolism is 66.0-91.0 seconds. Blood BLOOD SPECIMEN / Unknown Lab Venipuncture / Unknown 09/10/2017 5:49 AM CDT 09/10/2017 5:50 AM CDT Yogesh Duncan MD LAB - COAGULATION OR DERABLES [address] [phone] * (ABNORMAL) RBC MORPHOLOGY (09/10/2017 5:04 AM CDT) Platelet Estimate Adequate Adequate 09/10/2017 6:51 AM CDT [facility] Anisocytosis 1+(A) None [facility]/10[facility]2017 [facility] Stomatocytes 2+(A) None 09/10/2017 6:51 AM [facility] Blood BLOOD SPECIMEN / Unknown Venipuncture / Unknown 09/10/2017 5:04 AM CDT 09/10/2017 5:08 AM CDT Jason Nash MD LAB - HEMATOLOGY ORD ERABLES [facility] [address] [phone] * (ABNORMAL) BASIC METABOLIC PANEL (CALCIUM TOTAL) (09/10/2017 5:04 AM CDT) BUN 36(H) 7 - 26 mg/dL 09/10/2017 5:35 AM [facility] Creatinine 0.7 0.6 - 1.2 mg/dL 09/10/2017 5:35 AM [facility] Sodium 141 136 - 145 mmol/L 09/10/2017 5:35 AM [facility] Potassium 4.8(H) 3.5 - 4.5 mmol/L 09/10/2017 5:35 AM [facility] Chloride 103 98 - 107 mmol/L 09/10/2017 5:35 AM [facility] CO2 28 22 - 29 mmol/L 09/10/2017 5:35 AM [facility] Glucose 129(H) 70 - 115 mg/dL 09/10/2017 5:35 AM [facility] Calcium 8.6 8.4 - 10.2 mg/dL 09/10/2017 5:35 AM [facility] Anion Gap 15 8 - 18 09/10/2017 5:35 AM [facility] BUN/Creatinine Ratio >50(H) 7 - 23 09/10/2017 5:35 AM [facility] Osmolality Calculated 302(H) 270 - 300 mOsm/kg 09/10/2017 5:35 AM [facility] Blood BLOOD SPECIMEN / Unknown Venipuncture / Unknown 09/10/2017 5:04 AM CDT 09/10/2017 5:08 AM CDT Jason Nash MD LAB - CHEMISTRY ROYCE KLINE [facility] Organization Address City/State/ZIP Co de Phone Number [facility] [address] [phone] * (ABNORMAL) CBC W AUTO DIFFERENTIAL (09/10/2017 5:04 AM T) WBC 11.0(H) 3.5 - 10.5 10? 3 /uL 09/10/2017 5:19 AM [facility] Comment:The WBC count is cor rected by the instrument for nRBC's RBC 2.86(L) 4.30 - 5.70 10? 6 /uL 09/10/2017 5:19 AM [facility] Hemoglobin 8.0(L) 13.5 - 17.5 g/dL 09/10/2017 5:19 AM [facility] Hematocrit 27.1(L) 39.0 - 50.0 % 09/10/2017 5:19 AM [facility] MCV 94.8 81.0 - 97.0 fL 09/10/2017 5:19 AM [facility] MCH 28.0 28.0 - 34.0 pg 09/10/2017 5:19 AM [facility] MCHC 29.5(L) 32.0 - 36.0 g/dL 09/10/2017 5:19 AM [facility] Platelet Count 249 150 - 400 10? 3 /uL 09/10/2017 5:19 AM [facility] RDW-SD 69.0(H) 36.0 - 50.0 fL 09/10/2017 5:19 AM [facility] RDW-CV 21.1(H) 11.2 - 14.8 % 09/10/2017 5:19 AM [facility] MPV 12.4 9.3 - 12.8 fL 09/10/2017 5:19 AM [facility] nRBC Absolute 0.14(H) 0 10? 3 /uL 09/10/2017 5:19 AM [facility] nRBC Auto 1.2(H) 0 /100 WBC 09/10/2017 5:19 AM [facility] Neutrophils % 83.6(H) 35.0 - 70.0 % 09/10/2017 5:19 AM [facility] Lymphocytes % 4.9(L) 19.7 - 55.1 % 09/10/2017 5:19 AM [facility] Monocytes % 9.6 3.0 - 15.0 % 09/10/2017 5:19 AM [facility] Eosinophils % 1.4 0.0 - 6.0 % 09/10/2017 5:19 AM [facility] Basophil % 0.5 0.0 - 1.5 % 09/10/2017 5:19 AM [facility] Neutrophils Absolute 9.2(H) 1.6 - 7.0 10? 3 /uL 09/10/2017 5:19 AM [facility] Lymphocyte Absolute 0.5(L) 0.8 - 2.9 10? 3 /uL 09/10/2017 5:19 AM [facility] Monocytes Absolute 1.05(H) 0.14 - 0.66 10? 3 /uL 09/10/2017 5:19 AM [facility] Eosinophils Absolute 0.15 0.00 - 0.22 10? 3 /uL 09/10/2017 5:19 AM [facility] Basophils Absolute 0.05 0.00 - 0.06 10? 3 /uL 09/10/2017 5:19 AM [facility] Immature Granulocytes % 1.5(H) 0.0 - 1.0 % 09/10/2017 5:19 AM [facility] Blood BLOOD SPECIMEN / Unknown Venipuncture / Unknown 09/10/2017 5:04 AM CDT 09/10/2017 5:08 AM T Jason Nash MD LAB - HEMATOLOGY ORD ERABLES [place] [id number] [address] [phone] * (ABNORMAL) GLUCOSE ACCUCHECK (09/09/2017 11:31 PM CDT) [facility] Signature Glucose, Fingerstick 127(H) 70-115mg/d L mg/dL [facility] (BEAKER) Comment: Insulin Protocol Construction Producer: PRICE ??HOA 09/09/2017 11:3 1 PM CDT Jason Nash MD LAB - CHEMISTRY ROYCE KLINE Performing Organization Address City/[facility]/ZIP Co de Phone Number [facility] ([facility]) * GLUCOSE ACCUCHECK (09/09/2017 5:10 PM CDT) Glucose, Fingerstick 99 70-115mg/d L mg/dL [facility] ([facility]) Comment:Construction Producer: CHRIS HOU AUNDREA 09/09/2017 5:10 PM CDT Jason Nash MD LAB - CHEMISTRY ROYCE KLINE Performing Organization Address [facility] Co de Phone Number [facility] ([facility]) * CULTURE AEROBIC (09/09/2017 3:41 PM CDT) Culture Aerobic Light Growth [facility] Comment:Normal oropharyngeal robert Gram Stain light White Blood Cells [facility] Gram Stain No Organism Seen [facility] Bronchial Washings SPECIMEN FROM LUNG OBTAINED BY BRONCHIAL WASHING PROCEDURE / Unknown 09/09/2017 3:41 PM CDT 09/09/2017 3:47 PM CDT Narrative [facility] - 09/11/2017 6:41 AM CDT Specimen Type->Bronchial Washings Resulting Lab: ?? [facility]CRO[facility]OLOG[facility] [address] [place] [address] PH: [phone] Jason Nash MD LAB - MICROBIOLOGY O RDERABLES Performing Organization Address [facility] Co de Phone Number [facility] [address] [place] [address] * XR CHEST 1VW PORTABLE (09/09/2017 3:31 PM CDT) Anatomical Region Laterality Modality Chest Other Impressions 09/09/2017 4:31 PM CDT IMPRESSION: An endotracheal tube terminates at the mid thoracic trachea. A feeding tube extends to the stomach and beyond the [id number]. A left pleural pigtail catheter is partially imaged. Small right pleural effusion is unchanged. Left lower lobe opacity has decreased representing atelectasis versus airspace disease with possible persistent pleural effusion. Interstitial opacities are unchanged representing pulmonary edema and/or pneumonia. No pneumothorax is seen. The cardiac silhouette is partially obscured. The aorta is atherosclerotic. Report dictated by Rohan Hopkins M.D. (radiology transcriptionist). IDr. VIBHA M.D. have personally reviewed and [...] extends to the stomach and beyond the [id number]. A left pleuralpigtail catheter is partially imaged. Small right pleural effusion is unchanged. Left lower lobe opacity hasdecreased representing atelectasis versus airspace disease with possiblepersistent pleural effusion. Interstitial opacities are unchangedrepresenting pulmonary edema and/or pneumonia. No pneumothorax is seen. The cardiac silhouette is partiallyobscured. The aorta is atherosclerotic. Report dictated by Rohan Hopkins M.D. (radiology transcriptionist). Dr. VIBHA Stringer M.D. have personally reviewed and interpreted thisexamination/study. This report was electronically signed by VIBHA PHELPS M.D. on 09/09/20174:31 PM . Jason Nash MD DIAGNOSTIC IMAGING O RDERABLES * GLUCOSE ACCUCHECK (09/09/2017 11:57 AM CDT) Glucose, Fingerstick 79 70-115mg/d L mg/dL [facility] (BEAKER) Comment:Construction Producer: CHELA PATTERSON 09/09/2017 11:5 7 AM CDT Jason Nash MD LAB - CHEMISTRY ROYCE KLINE [facility] ([place]) * (ABNORMAL) BASIC METABOLIC PANEL (CALCIUM TOTAL) (09/09/2017 10:31 AM CDT) BUN 36(H) 7 - 26 mg/dL [facility] Creatinine 0.8 0.6 - 1.2 mg/dL [facility] Sodium 142 136 - 145 mmol/L [facility] Potassium 4.7(H) 3.5 - 4.5 mmol/L [facility] Chloride 105 98 - 107 mmol/L [facility] CO2 26 22 - 29 mmol/L [facility] Glucose 80 70 - 115 mg/dL [facility] Calcium 8.5 8.4 - 10.2 mg/dL [facility] Anion Gap 16 8 - 18 [facility] BUN/Creatinine Ratio 45(H) 7 - 23 [facility] Osmolality Calculated 301(H) 270 - 300 mOsm/kg [facility] eGFR >60 >60 mL/min/1.7 3 m2 [facility] Blood specimen (specimen) BLOOD SPECIMEN / Unknown 09/09/2017 10:31 AM CDT 09/09/2017 10:40 AM CDT Jason Nash MD LAB - CHEMISTRY ROYCE KLINE [address] [phone] * (ABNORMAL) BLOOD GASES ART (09/09/2017 8:41 AM CDT) pH Arterial 7.51(H) 7.35 - 7.45 [facility] pCO2 Arterial 38 35 - 45 mmHg [facility] pO2 Arterial 274(H) 71 - 95 mmHg [facility] HCO3 Arterial 29.2(H) 22.0 - 26.0 mmol/L [facility] TCO2 Arterial 30.4(H) 25.0 - 29.0 mmol/L [facility] Base Excess Arterial 5.7(H) -2.0 - 2.0 mmol/L [facility] Hemoglobin Arterial 7.6(L) 13.5 - 17.5 g/dL [facility] Oxyhemoglobin Arterial 98.7 95.0 - 100.0 % [facility] Carboxyhemoglobin 0.3 0.0 - 3.0 % [facility] Methemoglobin 0.5 0.0 - 2.0 % [facility] FI O2 Arterial 100.0 % [facility] Blood specimen (specimen) BLOOD SPECIMEN / Unknown 09/09/2017 8:41 AM CDT 09/09/2017 8:45 AM CDT Narrative [facility] - 09/09/2017 8:47 AM CDT FIO2->100 Jason Nash MD LAB - BLOOD GASES OR DERABLES [address] [phone] * (ABNORMAL) GLUCOSE ACCUCHECK (09/09/2017 6:15 AM CDT) Glucose, Fingerstick 133(H) 70-115mg/d L mg/dL [facility] (BEAKER) Comment:Construction Producer: CARLOS CARTAGENA 09/09/2017 6:15 AM CDT Jason Nash MD LAB - CHEMISTRY ORDE RABLES [facility] ([place]) * XR CHEST 1VW PORTABLE (09/09/2017 4:23 AM CDT) Anatomical Region Laterality Modality Chest Other Impressions 09/09/2017 2:02 PM CDT IMPRESSION: There is interval intubation with tip of endotracheal tube terminating at the mid thoracic trachea. A feeding tube extends to the stomach and beyond the ffsqa-gt-vdca. A left pleural pigtail catheter is unchanged in position. Small right pleural effusion is unchanged. There is left lower lobe atelectasis versus airspace disease with possible persistent pleural effusion. Interstitial opacities have decreased representing pulmonary edema and/or pneumonia. No pneumothorax is seen. The cardiac silhouette is partially obscured. The aorta is atherosclerotic. Report dictated by Rohan Hopkins M.D. (radiology transcriptionist). Dr. VIBHA Stringer M.D. have personally reviewed [...] tube extends to the stomach and beyondthe ptlhl-oa-yjby. A left pleural pigtail catheter is unchanged inposition. Small right pleural effusion is unchanged. There is left lower lobeatelectasis versus airspace disease with possible persistent pleuraleffusion. Interstitial opacities have decreased representing pulmonaryedema and/or pneumonia. No pneumothorax is seen. The cardiac silhouette is partially obscured. The aorta isatherosclerotic. Report dictated by Rohan Hopkins M.D. (radiology transcriptionist). Dr. VIBHA Stringer M.D. have personally reviewed and interpreted thisexamination/study. This report was electronically signed by VIBHA PHELPS M.D. on 09/09/20172:02 PM . Delphine Waddell [facility] DIAGNOSTIC IMAGI NG ORDERABLES * (ABNORMAL) DIFFERENTIAL MANUAL (09/09/2017 4:22 AM CDT) WBC (corrected for NRBC) 18.9 10? 3 /uL [facility] Total Cell Count 100 [facility] Neutrophils Absolute Manual 14.55(H) 1.60 - 7.00 10? 3 /uL [facility] Comment:(BANDS+SEGS) x WBC = NEUT # (ANC) Lymphocyte Absolute Manual 1.70 0.80 - 2.90 10? 3 /uL [facility] Monocytes Absolute Manual 2.46(H) 0.14 - 0.66 10? 3 /uL [facility] Neutrophil % Manual 77(H) 30 - 60 % [facility] Lymphocyte % Manual 9(L) 20 - 45 % [facility] Monocytes % Manual 13(H) 2 - 10 % [facility] Metamyelocyte % Manual 1(H) 0 % [facility] Platelet Estimate Increased (A) Adequate [facility] Anisocytosis Occasiona l(A) None [facility] Blood specimen (specimen) BLOOD SPECIMEN / Unknown 09/09/2017 4:22 AM CDT 09/09/2017 4:27 AM CDT Jason Nash MD LAB - HEMATOLOGY ORD ERABLES [facility] [address] [phone] * (ABNORMAL) CBC W AUTO DIFFERENTIAL (09/09/2017 4:22 AM CDT) WBC 18.9(H) 3.5 - 10.5 10? 3 /uL [facility] Comment: The WBC count is corrected by the instrument for nRBC's All CBC parameters have been checked. RBC 3.27(L) 4.30 - 5.70 10? 6 /uL [facility] Hemoglobin 9.1(L) 13.5 - 17.5 g/dL [facility] Hematocrit 31.2(L) 39.0 - 50.0 % [facility] MCV 95.4 81.0 - 97.0 fL [facility] MCH 27.8(L) 28.0 - 34.0 pg [facility] MCHC 29.2(L) 32.0 - 36.0 g/dL [facility] Platelet Count 426(H) 150 - 400 10? 3 /uL [facility] RDW-SD 66.4(H) 36.0 - 50.0 fL [facility] RDW-CV 20.4(H) 11.2 - 14.8 % [facility] MPV 12.8 9.3 - 12.8 fL [facility] nRBC Absolute 0.45(H) 0 10? 3 /uL [facility] nRBC Auto 2.4(H) 0 /100 WBC [facility] Blood specimen (specimen) BLOOD SPECIMEN / Unknown 09/09/2017 4:22 AM CDT 09/09/2017 4:27 AM CDT Jason Nash MD LAB - HEMATOLOGY ORD ERABLES Performing Organization Address [facility]/ZIP Co de Phone Number [address] [phone] * (ABNORMAL) PT-INR [facility] (09/09/2017 4:22 AM CDT) PT 15.8(H) 12.1 - 14.8 Seconds [facility] INR 1.3 See Comment [facility] Comment: Suggested therapeutic range for low-intensity coumadin therapy for venous thromboembolism prophylaxis is an INR of 2.0-3.0. ??For high risk patients (Mitral Valve Prosthesis, Atrial Fibrillation, history of TIA/stroke), suggested prophylactic therapeutic range is an INR of 2.5-3.5. Blood specimen (specimen) BLOOD SPECIMEN / Unknown 09/09/2017 4:22 AM CDT 09/09/2017 4:27 AM CDT Narrative [facility] - 09/09/2017 4:43 AM CDT Is patient on Heparin, Argatroban or Dabigatran?->N Jason Nash MD LAB - COAGULATION OR DERABLES Performing Organization Address [facility]/ZIP Co de Phone Number [address] [phone] * (ABNORMAL) BLOOD GASES ART (09/09/2017 4:22 AM CDT) pH Arterial 7.41 7.35 - 7.45 [facility] pCO2 Arterial 45 35 - 45 mmHg [facility] pO2 Arterial 65(L) 71 - 95 mmHg [facility] HCO3 Arterial 27.4(H) 22.0 - 26.0 mmol/L [facility] TCO2 Arterial 28.8 25.0 - 29.0 mmol/L [facility] Base Excess Arterial 2.4(H) -2.0 - 2.0 mmol/L [facility] Hemoglobin Arterial 8.6(L) 13.5 - 17.5 g/dL [facility] Oxyhemoglobin Arterial 90.7(L) 95.0 - 100.0 % [facility] Carboxyhemoglobin 0.3 0.0 - 3.0 % [facility] Methemoglobin 0.3 0.0 - 2.0 % [facility] FI O2 Arterial 100.0 % [facility] Blood specimen (specimen) BLOOD SPECIMEN / Unknown 09/09/2017 4:22 AM CDT 09/09/2017 4:45 AM CDT Delphine Waddell [facility] LAB - BLOOD GASE S ORDERABLES Performing Organization Address City/State/[facility] Co de Phone Number [address] [phone] * (ABNORMAL) BASIC METABOLIC PANEL (CALCIUM TOTAL) (09/09/2017 4:22 AM CDT) BUN 35(H) 7 - 26 mg/dL [facility] Creatinine 0.8 0.6 - 1.2 mg/dL [facility] Sodium 140 136 - 145 mmol/L [facility] Potassium 5.7(H) 3.5 - 4.5 mmol/L [facility] Chloride 104 98 - 107 mmol/L [facility] CO2 24 22 - 29 mmol/L [facility] Glucose 238(H) 70 - 115 mg/dL [facility] Calcium 8.9 8.4 - 10.2 mg/dL [facility] Anion Gap 18 8 - 18 [facility] BUN/Creatinine Ratio 44(H) 7 - 23 [facility] Osmolality Calculated 306(H) 270 - 300 mOsm/kg [facility] eGFR >60 >60 mL/min/1.7 3 m2 [facility] Blood specimen (specimen) BLOOD SPECIMEN / Unknown 09/09/2017 4:22 AM CDT 09/09/2017 4:27 AM CDT Jason Nash MD LAB - CHEMISTRY ROYCE KLINE Performing Organization Address [facility]/State/ZIP Co de Phone Number [facility] [address] [place] [address], [facility] [phone] * CBC W AUTO DIFFERENTIAL (09/09/2017 4:22 AM CDT) Blood specimen (specimen) BLOOD SPECIMEN / Unknown 09/09/2017 4:22 AM CDT Narrative [facility] - 09/09/2017 5:12 AM CDT The following orders were created for panel order CBC w Differential. Procedure ? Abnormality ? Status ? --------- ? ------ ? CBC WITH DIFFERENTIAL[[id number]] ? Abnormal ?Final result ? MANUAL DIFFERENTIAL[[id number]] ? Abnormal ?Final result ? Please view results for these tests on the individual orders. Jason Nash MD LAB - HEMATOLOGY RAFFY [place] Performing Organization Address [facility]/State/ZIP Co de Phone Number [facility] [address] [place] [address], [facility] * XR CHEST 1VW PORTABLE (09/09/2017 3:48 AM CDT) Anatomical Region Laterality Modality Chest Other Impressions 09/09/2017 1:59 PM CDT IMPRESSION: A feeding tube extends to the stomach and beyond the kgrfr-an-hsbb. A left pleural pigtail catheter is unchanged [...] atherosclerotic. Report dictated by Rohan Hopkins MD (radiology transcriptionist). Dr. VIBHA Stringer M.D. have personally reviewed [...] extends to the stomach and beyond the jdczd-lz-dbil. A leftpleural pigtail catheter is unchanged in [...] atherosclerotic. Report dictated by Rohan Hopkins MD (radiology transcriptionist). Dr. VIBHA Stringer M.D. have personally reviewed and interpreted thisexamination/study. This report was electronically signed by VIBHA PHELPS M.D. on 09/09/20171:59 PM . Jason Nash MD DIAGNOSTIC IMAGING O RDERABLES * (ABNORMAL) GLUCOSE ACCUCHECK (09/09/2017 12:56 AM CDT) Glucose, Fingerstick 136(H) 70-115mg/d L mg/dL [facility] ([facility]) Comment:Construction Producer: CARLOS VALVERDEISABELLA 09/09/2017 12:5 6 AM CDT Jason Nash MD LAB - CHEMISTRY ROYCE KLINE Performing Organization Address [facility] Co de Phone Number [facility] ([facility]) * (ABNORMAL) GLUCOSE ACCUCHECK (09/08/2017 6:08 PM CDT) Glucose, Fingerstick 130(H) 70-115mg/d L mg/dL [facility] ([facility]) Comment:Construction Producer: MARCELL ST DAKSHA 09/08/2017 6:08 PM CDT Jason Nash MD LAB - CHEMISTRY ROYCE KLINE Performing Organization Address [facility] de Phone Number [facility] ([facility]) * (ABNORMAL) GLUCOSE ACCUCHECK (09/08/2017 12:39 PM CDT) Glucose, Fingerstick 120(H) 70-115mg/d L mg/dL [facility] ([facility]) Comment:Construction Producer: MICHELA PENNINGTON 09/08/2017 12:3 9 PM CDT Jason Nash MD LAB - CHEMISTRY ROYCE KLINE Performing Organization Address [facility] de Phone Number [facility] ([facility]) * LD BODY FLUID ([facility] ONLY) (09/08/2017 12:35 PM CDT) LD Fluid 172 Not Established For Fluids Units/L [facility] Comment:The reference range and other method performance specifications have not been established for this fluid. The test result must be integrated into the clinical context for interpretation. Pleural fluid specimen (specimen) PLEURAL FLUID / Unknown 09/08/2017 12:35 PM CDT 09/08/2017 12:48 PM CDT Jason Nash MD LAB - BODY FLUID ORD ERABLES Performing Organization Address [facility]/ZIP Co de Phone Number [address] [phone] * GLUCOSE BODY FLUID ([facility] ONLY) (09/08/2017 12:35 PM CDT) Glucose Fluid 145 Not Established For Fluids mg/dL [facility] Comment:The reference range and other method performance specifications have not been established for this fluid. The test result must be integrated into the clinical context for interpretation. Pleural fluid specimen (specimen) PLEURAL FLUID / Unknown 09/08/2017 12:35 PM CDT 09/08/2017 12:48 PM CDT Jason Nash MD LAB - BODY FLUID ORD ERABLES Performing Organization Address [facility] de Phone Number [address] [phone] * PROTEIN FLUID (09/08/2017 12:35 PM CDT) Protein Fluid 1.5 Not Established For Fluids g/dL [facility] Comment:The reference range and other method performance specifications have not been established for this fluid. The test result must be integrated into the clinical context for interpretation. Pleural fluid specimen (specimen) PLEURAL FLUID / Unknown 09/08/2017 12:35 PM CDT 09/08/2017 12:48 PM CDT Jason Nash MD LAB - BODY FLUID ORD ERABLES Performing Organization Address [facility] Co de Phone Number [address] [phone] * (ABNORMAL) CELL COUNT FLUID (09/08/2017 12:35 PM CDT) Color Fluid [place](A) Colorless, Straw [facility] Clarity Fluid Slighty Cloudy(A) Clear [facility] Volume Fluid 1.0 mL [facility] WBC Fluid 161 Reference Range Not Established /uL [facility] RBC Fluid 11,000 Reference Range Not Established /uL [facility] Differential Manual Differential to follow. [facility] Pleural fluid specimen (specimen) PLEURAL FLUID / Unknown 09/08/2017 12:35 PM CDT 09/08/2017 12:48 PM CDT Narrative [facility] - 09/08/2017 1:12 PM CDT No established reference ranges for WBC and RBC body fluid count. Jason Nash MD LAB - [place] [address], [facility] [phone] * DIFFERENTIAL MANUAL FLUID (09/08/2017 12:35 PM CDT) Segs % Fluid 60 % [facility] Lymphocytes % Fluid 37 % [facility] Monocytes % Fluid 3 % [facility] Pleural fluid specimen (specimen) PLEURAL FLUID / Unknown 09/08/2017 12:35 PM CDT 09/08/2017 12:48 PM CDT Narrative [facility] - 09/08/2017 2:08 PM CDT No reference ranges established for body fluid differential. Jason Nash MD LAB - BODY FLUID ORD [place]AM[place] Performing Organization Address [facility] Co de Phone Number [address] [phone] * CELL COUNT W DIFFERENTIAL FLUID (09/08/2017 12:35 PM CDT) Pleural fluid specimen (specimen) PLEURAL FLUID / Unknown 09/08/2017 12:35 PM CDT Narrative [facility] - 09/08/2017 2:08 PM CDT The following orders were created for panel order Body fluid cell count with diff. Procedure ? Abnormality ? Status ? --------- ? ------ ? Body fluid cell count wit...[[id number]] ??Abnormal ?Final result ? MANUAL DIFFERENTIAL FLUID[[id number]] ? Final result ? Please view results for these tests on the individual orders. Jason Nash MD LAB - BODY FLUID ORD [place] Performing Organization Address [facility] de Phone Number [facility] [address] * PH FLUID (09/08/2017 12:33 PM CDT) pH Fluid 7.610 Not Established For Fluids [facility] Comment:The reference range and other method performance specifications have not been established for this fluid. The test result must be integrated into the clinical context for interpretation. Fluid specimen (specimen) PLEURAL FLUID / Unknown 09/08/2017 12:33 PM CDT 09/08/2017 12:47 PM CDT Jason Nash MD LAB - BODY FLUID ORD SP Performing Organization Address [facility] de Phone Number [facility] [address] [phone] * CULTURE AEROBIC (09/08/2017 12:32 PM CDT) Culture Aerobic No Growth [facility] Gram Stain light Polymorphonuclear Cells [facility] Gram Stain No Organism Seen [facility] Pleural fluid specimen (specimen) PLEURAL FLUID / Unknown 09/08/2017 12:32 PM CDT 09/08/2017 12:48 PM CDT Narrative [facility] - 09/15/2017 11:53 AM CDT Specimen Type->Pleural Fluid Resulting Lab: ?? [facility] MICROBIOLOGY [address] [place] [address] PH: [phone] Jason Nash MD LAB - MICROBIOLOGY O RDERABLES [facility] [address] [place] [address], [facility] [phone] * XR CHEST 1VW PORTABLE (09/08/2017 12:23 PM CDT) Anatomical Region Laterality Modality Chest Other Impressions 09/09/2017 8:58 AM CDT IMPRESSION: A feeding tube extends to the stomach and beyond the zdamf-be-oxxe. A tube projecting over the mediastinum to [...] partially obscured. Dictated by Omi Silverio MD (radiology transcriptionist). I, Dr. SILAS NGUYỄN MD have personally [...] extends to the stomach and beyond the lnfot-ye-msnv. A tubeprojecting over the mediastinum to the [...] partially obscured. Dictated by Omi Silverio MD (radiology transcriptionist). IDr. SILAS MD have personally reviewed and [...] the esophagus and tip is off the wcgvr-qd-iopx. Small right and moderate to large left pleural effusions with associated atelectasis and/or airspace disease is increase on the left. There are bilateral interstitial opacities likely representing pulmonary edema or pneumonia. No pneumothorax is identified. The cardiac silhouette is partially obscured. Report dictated by Rohan Hopkins M.D. (radiology transcriptionist). I, Dr. VIBHA PHELPS M.D. have personally [...] of the esophagusand tip is off the pcxwf-vr-rbnl. Small right and moderate to large left pleural effusions with associatedatelectasis and/or airspace disease is increase on the left. There arebilateral interstitial opacities likely representing pulmonary edema orpneumonia. No pneumothorax is identified. The cardiac silhouette is partially obscured. Report dictated by Rohan Hopkins M.D. (radiology transcriptionist). I, Dr. VIBHA PHELPS M.D. have personally reviewed and interpreted thisexamination/study. This report was electronically signed by VIBHA PHELPS M.D. on 09/08/201712:19 PM . Jason Nash MD DIAGNOSTIC IMAGING O RDERABLES * (ABNORMAL) GLUCOSE ACCUCHECK (09/08/2017 5:37 AM CDT) Glucose, Fingerstick 149(H) 70-115mg/d L mg/dL [facility] (BEAKER) Comment:Construction Producer: STAZZONE C ORINNE 09/08/2017 5:37 AM CDT Jason Nash MD LAB - CHEMISTRY ROYCE KLINE [facility] (BEAKER) * (ABNORMAL) GLUCOSE ACCUCHECK (09/08/2017 12:27 AM CDT) Glucose, Fingerstick 143(H) 70-115mg/d L mg/dL [facility] (BEAKER) Comment:Construction Producer: STAZZONE C ORINNE 09/08/2017 12:2 7 AM CDT Jason Nash MD LAB - CHEMISTRY ROYCE KLINE [facility] * (ABNORMAL) GLUCOSE ACCUCHECK (09/07/2017 4:22 PM CDT) Glucose, Fingerstick 150(H) 70-115mg/d L mg/dL [facility] ([place]) Comment:Construction Producer: MARCELL RIVERA 09/07/2017 4:22 PM CDT Jason Nash MD LAB - CHEMISTRY ROYCE KLINE [facility] Organization Address City/State/ZIP Co de Phone Number [facility] ([place]) * CT CHEST WO CONTRAST [...] T6-7, unchanged. Dictated by Keaton Gómez MD (radiology transcriptionist). I, Dr. Jason NAIK M.D. have personally [...] T6-7, unchanged. Dictated by Keaton Gómez MD (radiology transcriptionist). I, Dr. Jason NAIK M.D. have personally reviewed and interpreted thisexamination/study. This report was electronically signed by Jason NAIK M.D. on09/07/2017 3:14 PM . Jason Nash MD CT ORDERABLES * (ABNORMAL) GLUCOSE ACCUCHECK (09/07/2017 11:43 AM CDT) Glucose, Fingerstick 140(H) 70-115mg/d L mg/dL [facility] Comment:Construction Producer: MARCELL RIVERA 09/07/2017 11:4 3 AM CDT Jason Nash MD LAB - CHEMISTRY ROYCE KLINE Performing Organization Address [facility] Co de Phone Number [facility] (BEAKER) * (ABNORMAL) GLUCOSE ACCUCHECK (09/07/2017 5:29 AM CDT) Glucose, Fingerstick 171(H) 70-115mg/d L mg/dL [facility] (BEAKER) Comment:Construction Producer: FAISAL DAVIS MAYCO 09/07/2017 5:29 AM CDT Jason Nash MD LAB - CHEMISTRY ROYCE KLINE Performing Organization Address [facility] de Phone Number [facility] ([facility]) * XR CHEST 1VW PORTABLE (09/07/2017 5:04 AM CDT) Anatomical Region Laterality Modality Chest Other Impressions 09/07/2017 12:35 PM CDT IMPRESSION: Right internal jugular approach central venous catheters superimposes the superior vena cava. Endotracheal tube terminates at the mid thoracic trachea. A gastric tube has been removed and a feeding tube follows the course of the esophagus and tip is off the kexsd-ik-uvzt. Small right and moderate left pleural effusions with associated atelectasis and/or airspace disease is unchanged. There are bilateral interstitial and airspace opacities likely representing pulmonary edema or pneumonia. No pneumothorax is identified. The cardiac silhouette is partly obscured. Report dictated by Rohan Hopkins M.D. (radiology transcriptionist). I, Dr. SULLY RUANO M.D. have personally [...] the esophagus and tip is off the sscip-fl-wwxp. Small right and moderate left pleural effusions with associatedatelectasis and/or airspace disease is unchanged. There are bilateralinterstitial and airspace opacities likely representing pulmonary edema orpneumonia. No pneumothorax is identified. The cardiac silhouette is partly obscured. Report dictated by Rohan Hopkins M.D. (radiology transcriptionist). I, Dr. SULLY RUANO M.D. have personally reviewed and interpretedthis examination/study. This report was electronically signed by SULLY RUANO M.D. on09/07/2017 12:35 PM . Jason Nash MD DIAGNOSTIC IMAGING O RDERABLES * PTT [facility] (09/07/2017 4:28 AM CDT) APTT 32.8 23.0 - 38.4 Seconds [facility] Comment:Suggested therapeuti c range for full dose I.V. heparin therapy for venous thromboembolism is 66.0-91.0 seconds. Blood specimen (specimen) BLOOD SPECIMEN / Unknown 09/07/2017 4:28 AM CDT 09/07/2017 4:35 AM CDT Narrative [facility] - 09/07/2017 4:59 AM CDT Please ensure that the aPTT specimen is received in the clinical lab within 1 hour of collection if it is used for therapeutic heparin monitoring. Processing of heparinized specimens older than 1 hour may result in inaccurate test results. Is patient on Heparin, Argatroban or Dabigatran?->N Jason Nash MD LAB - COAGULATION OR DERABLES Performing Organization Address [facility]/ZIP Co de Phone Number [address] [phone] * (ABNORMAL) PT-INR [facility] (09/07/2017 4:28 AM CDT) PT 18.8(H) 12.1 - 14.8 Seconds [facility] INR 1.6 See Comment [facility] Comment: Suggested therapeutic range for low-intensity coumadin therapy for venous thromboembolism prophylaxis is an INR of 2.0-3.0. ??For high risk patients (Mitral Valve Prosthesis, Atrial Fibrillation, history of TIA/stroke), suggested prophylactic therapeutic range is an INR of 2.5-3.5. Blood specimen (specimen) BLOOD SPECIMEN / Unknown 09/07/2017 4:28 AM CDT 09/07/2017 4:35 AM CDT Narrative [facility] - 09/07/2017 4:58 AM CDT Is patient on Heparin, Argatroban or Dabigatran?->N Jason Nash MD LAB - COAGULATION OR DERABLES Performing Organization Address [facility] Co de Phone Number [address] [phone] * PROCALCITONIN LEVEL (09/07/2017 4:28 AM CDT) Procalcitonin 0.47 [facility] Blood specimen (specimen) BLOOD SPECIMEN / Unknown 09/07/2017 4:28 AM CDT 09/07/2017 4:35 AM CDT [facility] - 09/07/2017 5:53 AM CDT The change [...] Change in Procalcitonin Calculator is available at [email or web address] ?? If clinical picture has not improved and PCT remains high, reevaluate and consider treatment failure or other causes. Jason Nash MD LAB - CHEMISTRY ROYCE KLINE [address] [phone] * (ABNORMAL) BASIC METABOLIC PANEL (CALCIUM TOTAL) (09/07/2017 4:28 AM CDT) BUN 24 7 - 26 mg/dL [facility] Creatinine 0.7 0.6 - 1.2 mg/dL [facility] Sodium 140 136 - 145 mmol/L [facility] Potassium 4.6(H) 3.5 - 4.5 mmol/L [facility] Chloride 106 98 - 107 mmol/L [facility] CO2 25 22 - 29 mmol/L [facility] Glucose 156(H) 70 - 115 mg/dL [facility] Calcium 8.4 8.4 - 10.2 mg/dL [facility] Anion Gap 14 8 - 18 [facility] BUN/Creatinine Ratio 34(H) 7 - 23 [facility] Osmolality Calculated 297 270 - 300 mOsm/kg [facility] eGFR >60 >60 mL/min/1.7 3 m2 [facility] Blood specimen (specimen) BLOOD SPECIMEN / Unknown 09/07/2017 4:28 AM CDT 09/07/2017 4:35 AM CDT Jason Nash MD LAB - CHEMISTRY ROYCE KLINE Performing Organization Address [facility]/ZIP Co de Phone Number [address] [phone] * (ABNORMAL) MAGNESIUM BLOOD (09/07/2017 4:28 AM CDT) Magnesium 1.4(L) 1.6 - 2.6 mg/dL [facility] Blood specimen (specimen) BLOOD SPECIMEN / Unknown 09/07/2017 4:28 AM CDT 09/07/2017 4:35 AM CDT Jason Nash MD LAB - CHEMISTRY ROYCE KLINE Performing Organization Address [facility]/ZIP Co de Phone Number [address] [phone] * PHOSPHORUS BLOOD (09/07/2017 4:28 AM CDT) Phosphorus 2.9 2.3 - 4.7 mg/dL [facility] Blood specimen (specimen) BLOOD SPECIMEN / Unknown 09/07/2017 4:28 AM CDT 09/07/2017 4:35 AM CDT Jason Nash MD LAB - CHEMISTRY ROYCE KLINE Performing Organization Address [facility] Co de Phone Number [address] [phone] * (ABNORMAL) CBC W AUTO DIFFERENTIAL (09/07/2017 4:28 AM CDT) WBC 10.1 3.5 - 10.5 10? 3 /uL [facility] Comment:Results are confirme d by repeat analysis. RBC 2.72(L) 4.30 - 5.70 10? 6 /uL [facility] Hemoglobin 7.4(L) 13.5 - 17.5 g/dL [facility] Hematocrit 25.1(L) 39.0 - 50.0 % [facility] MCV 92.3 81.0 - 97.0 fL [facility] MCH 27.2(L) 28.0 - 34.0 pg [facility] MCHC 29.5(L) 32.0 - 36.0 g/dL [facility] Platelet Count 313 150 - 400 10? 3 /uL [facility] RDW-SD 61.9(H) 36.0 - 50.0 fL [facility] RDW-CV 19.0(H) 11.2 - 14.8 % [facility] MPV 12.0 9.3 - 12.8 fL [facility] nRBC Absolute 0.03(H) 0 10? 3 /uL [facility] nRBC Auto 0.3(H) 0 /100 WBC [facility] Neutrophils % 90.7(H) 35.0 - 70.0 % [facility] Lymphocytes % 4.1(L) 19.7 - 55.1 % [facility] Monocytes % 5.0 3.0 - 15.0 % [facility] Eosinophils % 0.0 0.0 - 6.0 % [facility] Basophil % 0.2 0.0 - 1.5 % [facility] Neutrophils Absolute 9.1(H) 1.6 - 7.0 10? 3 /uL [facility] Lymphocyte Absolute 0.4(L) 0.8 - 2.9 10? 3 /uL [facility] Monocytes Absolute 0.50 0.14 - 0.66 10? 3 /uL [facility] Eosinophils Absolute 0.00 0.00 - 0.22 10? 3 /uL [facility] Basophils Absolute 0.02 0.00 - 0.06 10? 3 /uL [facility] Immature Granulocytes % 1.4(H) 0.0 - 1.0 % [facility] Blood specimen (specimen) BLOOD SPECIMEN / Unknown 09/07/2017 4:28 AM CDT 09/07/2017 4:35 AM CDT Jason Nash MD LAB - HEMATOLOGY ORD ERABLES Performing Organization Address [facility] de Phone Number [facility] [address] [phone] * CBC W AUTO DIFFERENTIAL (09/07/2017 4:28 AM CDT) Blood specimen (specimen) BLOOD SPECIMEN / Unknown 09/07/2017 4:28 AM CDT Narrative [facility] - 09/07/2017 4:43 AM CDT The following orders were created for panel order CBC w Differential. Procedure ? Abnormality ? Status ? --------- ? ------ ? CBC WITH DIFFERENTIAL[[id number]] ? Abnormal ?Final result ? Please view results for these tests on the individual orders. Jason Nash MD LAB - HEMATOLOGY RAFFY SNOWDEN Performing Organization Address [facility] de Phone Number [facility] [address] * (ABNORMAL) GLUCOSE ACCUCHECK (09/07/2017 12:08 AM CDT) Glucose, Fingerstick 143(H) 70-115mg/d L mg/dL [facility] ([place]) Comment:Construction Producer: FAISAL MAO 09/07/2017 12:0 8 AM CDT Jason Nash MD LAB - CHEMISTRY ROYCE KLINE Performing Organization Address [facility] de Phone Number [facility] * EKG 12-LEAD (09/07/2017 12:00 AM CDT) EKG [facility] RADIOLOGY Comment: Exam Date/Time: ?? Sep 07 [...] noted Reconfirmed by Mauri ROY, FREDA ([id number]), supervising editor news reel Robi Pavon ([phone]) on 09/10/2017 6:07:09 PM Also confirmed by Mauri ROY, FREDA ([id number]), supervising editor news reel Robi Pavon ([phone]) ??on 09/10/2017 6:07:41 PM Referred By: REFERRING NO ? Confirmed By:FREDA ROY M.D. 09/07/2017 Rebecca Melendez [facility] ECG ORDERABLES [facility] RADIOLOGY * XR ABDOMEN KUB PORTABLE (09/06/2017 [...] AM. Report dictated by Rohan Hopkins MD (radiology transcriptionist). I, Dr. SULLY RUANO M.D. have personally [...] AM. Report dictated by Rohan Hopkins MD (radiology transcriptionist). I, Dr. SULLY RUANO M.D. have personally reviewed and interpretedthis examination/study. This report was electronically signed by SULLY RUANO M.D. on09/07/2017 12:20 PM . Rebecca Melendez [facility] G ORDERABLES * (ABNORMAL) BLOOD GASES ART COMPLETE [facility] OR (09/06/2017 4:21 PM CDT) pH Arterial 7.38 7.35 - 7.45 [facility] pCO2 Arterial 47(H) 35 - 45 mmHg [facility] pO2 Arterial 169(H) 71 - 95 mmHg [facility] HCO3 Arterial 27.0(H) 22.0 - 26.0 mmol/L [facility] TCO2 Arterial 28.4 25.0 - 29.0 mmol/L [facility] Base Excess Arterial 1.5 -2.0 - 2.0 mmol/L [facility] Hemoglobin Arterial 8.6(L) 13.5 - 17.5 g/dL [facility] Oxyhemoglobin Arterial 97.9 95.0 - 100.0 % [facility] Carboxyhemoglobin 0.3 0.0 - 3.0 % [facility] Methemoglobin 0.3 0.0 - 2.0 % [facility] FI O2 Arterial 50.0 % [facility] Ionized Calcium Whole Blood 1.14 mmol/L [facility] Adjusted Ionized Calcium 1.13(L) 1.19 - 1.34 mmol/L [facility] Sodium Whole Blood 140 135 - 145 mmol/L [facility] Potassium Whole Blood 4.2 3.5 - 5.5 mmol/L [facility] Chloride Whole Blood 109 101 - 111 mmol/L [facility] Glucose Whole Blood 134(H) 70 - 110 mg/dL [facility] Lactic Acid Whole Blood 2.5 0.5 - 3.4 mmol/L [facility] Blood specimen (specimen) 09/06/2017 4:21 PM CDT 09/06/2017 4:30 PM CDT Jason Nash MD LAB - BLOOD GASES OR DERABLES [address] [phone] * (ABNORMAL) GLUCOSE ACCUCHECK (09/06/2017 4:19 PM CDT) Glucose, Fingerstick 128(H) 70-115mg/d L mg/dL [facility]ALS ([facility]) Comment:Construction Producer: STONE ALI 09/06/2017 4:19 PM CDT Jason Nash MD LAB - CHEMISTRY ORDE RABANGELIA [facility] ([facility]) * XR CHEST 1VW PORTABLE (09/06/2017 2:48 PM CDT) Anatomical Region Laterality Modality Chest Other Impressions 09/06/2017 4:13 PM CDT IMPRESSION: Right internal jugular approach central venous catheters superimposes the superior vena cava. Endotracheal tube terminates at the mid thoracic trachea. A gastric tube and a feeding tube follows the course of the esophagus and tips are off the [id number]. There is a moderate left pleural effusion, intervally decreased. There is a small right pleural effusion, unchanged. There are bilateral interstitial and airspace opacities likely representing pulmonary edema or pneumonia. No pneumothorax is identified. The cardiac silhouette is partly obscured. Report dictated by Rohan Hopkins M.D. (radiology transcriptionist). Dr. SILAS Stringer MD have personally reviewed [...] of theesophagus and tips are off the [id number]-uuns. There is a moderate left pleural effusion, intervally decreased. There lisa small right pleural effusion, unchanged. There are bilateralinterstitial and airspace opacities likely representing pulmonary edema orpneumonia. No pneumothorax is identified. The cardiac silhouette is partly obscured. Report dictated by Rohan Hopkins M.D. (radiology transcriptionist). Dr. SILAS Stringer MD have personally reviewed and interpreted thisexamination/study. This report was electronically signed by SILAS NGUYỄN MD on 09/06/20174:13 PM . Jason Nash MD DIAGNOSTIC IMAGING O RDERABLES * CULTURE LEGIONELLA (09/06/2017 2:05 PM CDT) Culture Legionella No Growth Legionella 1 week. [facility] Bronchial Washings SPECIMEN FROM LUNG OBTAINED BY BRONCHIAL WASHING PROCEDURE / Unknown 09/06/2017 2:05 PM CDT 09/06/2017 2:23 PM CDT Narrative [facility] - 09/13/2017 8:55 AM CDT Specimen Type->Bronchial Washings Resulting Lab: ?? [facility] MICROBIOLOGY [address] [place] [address] PH: [phone] Jason Nash MD LAB - MICROBIOLOGY O RDJANUSZBLES [address] [phone] * CULTURE AEROBIC (09/06/2017 2:05 PM CDT) Culture Aerobic No Growth [facility] Gram Stain Moderate White Blood Cells [facility] Gram Stain No Organism Seen [facility] Bronchial Washings SPECIMEN FROM LUNG OBTAINED BY BRONCHIAL WASHING PROCEDURE / Unknown 09/06/2017 2:05 PM CDT 09/06/2017 2:23 PM CDT Narrative [facility] - 09/08/2017 11:09 AM CDT Specimen Type->Bronchial Washings Resulting Lab: ?? [facility] MICROBIOLOGY [address] [place] [address] PH: [phone] Jason Nash MD LAB - MICROBIOLOGY O RDJANUSZBLES Performing Organization Address City/[facility]/ZIP Co de Phone Number [address] [phone] * CULTURE BLOOD (09/06/2017 12:35 PM CDT) Culture Blood No Growth at 5 days [facility] Blood specimen (specimen) DEVICE / Unknown 09/06/2017 12:35 PM CDT 09/06/2017 12:44 PM CDT Narrative [facility] - 09/11/2017 4:45 PM CDT Resulting Lab: ?? [facility] MICROBIOLOGY [address] [place] [address] PH: [phone] Bandar Mansfield MD LAB - [place]CRO[place] [address], [facility] [phone] * CULTURE BLOOD (09/06/2017 12:11 PM CDT) Culture Blood No Growth at 5 days [facility] Blood specimen (specimen) (Blood Line - Arterial) 09/06/2017 12:11 PM CDT 09/06/2017 12:16 PM CDT Narrative [facility] - 09/11/2017 4:30 PM CDT Draw 15 minutes after Culture 1 from a different site Resulting Lab: ?? [facility] MICROBIOLOGY [address] [place] [address] PH: [phone] Bandar Mansfield MD LAB - MICROBIOLOGY ORDERABLES [facility] [address] [place], [place] [id number] [place] [address] * (ABNORMAL) BLOOD GASES ART COMPLETE [facility] (09/06/2017 12:11 PM CDT) pH Arterial 7.28(L) 7.35 - 7.45 [facility] pCO2 Arterial 55(H) 35 - 45 mmHg [facility] pO2 Arterial 152(H) 71 - 95 mmHg [facility] HCO3 Arterial 25.0 22.0 - 26.0 mmol/L [facility] TCO2 Arterial 26.7 25.0 - 29.0 mmol/L [facility] Base Excess Arterial -2.0 -2.0 - 2.0 mmol/L [facility] Hemoglobin Arterial 8.6(L) 13.5 - 17.5 g/dL [facility] Oxyhemoglobin Arterial 97.6 95.0 - 100.0 % [facility] Carboxyhemoglobin 0.3 0.0 - 3.0 % [facility] Methemoglobin 0.6 0.0 - 2.0 % [facility] FI O2 Arterial 100.0 % [facility] Ionized Calcium Whole Blood 1.18 mmol/L [facility] Adjusted Ionized Calcium 1.12(L) 1.19 - 1.34 mmol/L [facility] Sodium Whole Blood 142 135 - 145 mmol/L [facility] Potassium Whole Blood 3.8 3.5 - 5.5 mmol/L [facility] Chloride Whole Blood 106 101 - 111 mmol/L [facility] Glucose Whole Blood 166(H) 70 - 110 mg/dL [facility] Lactic Acid Whole Blood 2.8(HH) 0.5 - 2.0 mmol/L [facility] Comment:Critical value(s) bailey ve been verified and called to and read back by Emma Ledezma at 1223 on 09/06/17. Blood specimen (specimen) 09/06/2017 12:11 PM CDT 09/06/2017 12:16 PM CDT Bandar Mansfield MD LAB - BLOOD GASES ORDERABLES Performing Organization Address [facility] Co de Phone Number [address] [phone] * (ABNORMAL) DIGOXIN LEVEL (09/06/2017 12:02 PM CDT) Digoxin <0.3(L) 0.8 - 2.0 ng/mL [facility] Comment: The senior relationship manager of [employer] has stated that no immunoassay technique is suitable for quantitating digoxin in plasma/serum from patients on antibody fragment therapy. ? Blood specimen (specimen) BLOOD SPECIMEN / Unknown 09/06/2017 12:02 PM CDT 09/06/2017 12:08 PM CDT Bandar Mansfield MD LAB - CHEMISTRY OR DERABLES Performing Organization Address [facility] Co de Phone Number [address] [phone] * (ABNORMAL) PTT [facility] (09/06/2017 11:57 AM CDT) APTT 46.4(H) 23.0 - 38.4 Seconds [facility] Comment:Suggested therapeuti c range for full dose I.V. heparin therapy for venous thromboembolism is 66.0-91.0 seconds. Blood specimen (specimen) BLOOD SPECIMEN / Unknown 09/06/2017 11:57 AM CDT 09/06/2017 12:08 PM CDT Narrative [facility] - 09/06/2017 12:21 PM CDT Please ensure that the aPTT specimen is received in the clinical lab within 1 hour of collection if it is used for therapeutic heparin monitoring. Processing of heparinized specimens older than 1 hour may result in inaccurate test results. Is patient on Heparin, Argatroban or Dabigatran?->N Bandar Mansfield MD LAB - COAGULATION ORDERABLES Performing Organization Address [facility] Co de Phone Number [address] [phone] * (ABNORMAL) PT-INR [facility] (09/06/2017 11:57 AM CDT) PT 24.5(H) 12.1 - 14.8 Seconds [facility] INR 2.2 See Comment [facility] Comment: Suggested therapeutic range for low-intensity coumadin therapy for venous thromboembolism prophylaxis is an INR of 2.0-3.0. ??For high risk patients (Mitral Valve Prosthesis, Atrial Fibrillation, history of TIA/stroke), suggested prophylactic therapeutic range is an INR of 2.5-3.5. Blood specimen (specimen) BLOOD SPECIMEN / Unknown 09/06/2017 11:57 AM CDT 09/06/2017 12:08 PM CDT Narrative [facility] - 09/06/2017 12:20 PM CDT Is patient on Heparin, Argatroban or Dabigatran?->N Bandar Mansfield MD LAB - COAGULATION ORDERABLES Performing Organization Address [facility] Co de Phone Number [address] [phone] * TROPONIN I (09/06/2017 11:57 AM CDT) Troponin I 0.027 <0.032 ng/mL [facility] Blood specimen (specimen) BLOOD SPECIMEN / Unknown 09/06/2017 11:57 AM CDT 09/06/2017 12:08 PM CDT Bandar Mansfield MD LAB - CHEMISTRY OR DERABLES Performing Organization Address [facility]/ZIP Co de Phone Number [address] [phone] * (ABNORMAL) COMPREHENSIVE METABOLIC PANEL (09/06/2017 11:57 AM CDT) BUN 21 7 - 26 mg/dL [facility] Creatinine 0.7 0.6 - 1.2 mg/dL [facility] Sodium 143 136 - 145 mmol/L [facility] Potassium 3.8 3.5 - 4.5 mmol/L [facility] Chloride 108(H) 98 - 107 mmol/L [facility] CO2 20(L) 22 - 29 mmol/L [facility] Glucose 170(H) 70 - 115 mg/dL [facility] Calcium 8.5 8.4 - 10.2 mg/dL [facility] Protein Total 6.2 6.0 - 8.3 g/dL [facility] Albumin 1.8(L) 3.4 - 5.0 g/dL [facility] Bilirubin Total 0.3 0.2 - 1.2 mg/dL [facility] Alkaline Phosphatase 204(H) 40 - 150 Units/L [facility] ALT 10 0 - 55 Units/L [facility] AST 21 5 - 34 Units/L [facility] Anion Gap 19(H) 8 - 18 [facility] BUN/Creatinine Ratio 30(H) 7 - 23 [facility] Osmolality Calculated 303(H) 270 - 300 mOsm/kg [facility] Albumin/Globulin Ratio 0.4(L) 1.1 - 2.3 [facility] eGFR >60 >60 mL/min/1.7 3 m2 [facility] Blood specimen (specimen) BLOOD SPECIMEN / Unknown 09/06/2017 11:57 AM CDT 09/06/2017 12:08 PM CDT Bandar Mansfield MD LAB - CHEMISTRY OR DERABLES [facility] [address] [phone] * (ABNORMAL) CBC W AUTO DIFFERENTIAL (09/06/2017 11:57 AM CDT) WBC 27.8(H) 3.5 - 10.5 10? 3 /uL [facility] Comment:All CBC parameters h ave been checked. RBC 2.99(L) 4.30 - 5.70 10? 6 /uL [facility] Hemoglobin 8.2(L) 13.5 - 17.5 g/dL [facility] Hematocrit 28.5(L) 39.0 - 50.0 % [facility] MCV 95.3 81.0 - 97.0 fL [facility] MCH 27.4(L) 28.0 - 34.0 pg [facility] MCHC 28.8(L) 32.0 - 36.0 g/dL [facility] Platelet Count 432(H) 150 - 400 10? 3 /uL [facility] RDW-SD 64.7(H) 36.0 - 50.0 fL [facility] RDW-CV 19.1(H) 11.2 - 14.8 % [facility] MPV 12.1 9.3 - 12.8 fL [facility] nRBC Absolute 0.09(H) 0 10? 3 /uL [facility] nRBC Auto 0.3(H) 0 /100 WBC [facility] Neutrophils % 92.0(H) 35.0 - 70.0 % [facility] Lymphocytes % 5.2(L) 19.7 - 55.1 % [facility] Monocytes % 2.6(L) 3.0 - 15.0 % [facility] Eosinophils % 0.1 0.0 - 6.0 % [facility] Basophil % 0.1 0.0 - 1.5 % [facility] Neutrophils Absolute 25.6(H) 1.6 - 7.0 10? 3 /uL [facility] Lymphocyte Absolute 1.5 0.8 - 2.9 10? 3 /uL [facility] Monocytes Absolute 0.71(H) 0.14 - 0.66 10? 3 /uL [facility] Eosinophils Absolute 0.03 0.00 - 0.22 10? 3 /uL [facility] Basophils Absolute 0.04 0.00 - 0.06 10? 3 /uL [facility] Immature Granulocytes % 3.0(H) 0.0 - 1.0 % [facility] Blood specimen (specimen) BLOOD SPECIMEN / Unknown 09/06/2017 11:57 AM CDT 09/06/2017 12:08 PM CDT Bandar Mansfield MD LAB - HEMATOLOGY O RDERABLES Performing Organization Address [facility]/ZIP Co de Phone Number [address] [phone] * (ABNORMAL) LACTIC ACID BLOOD (09/06/2017 11:57 AM CDT) Lactic Acid-Stat 3.3(HH) 0.5 - 2.0 mmol/L [facility] Comment:RESULTS CALLED TO AN D READ BACK BY DONTAE MACIEL AT 1:07 PM, 09/06/2017 Blood specimen (specimen) BLOOD SPECIMEN / Unknown 09/06/2017 11:57 AM CDT 09/06/2017 12:08 PM CDT Bandar Mansfield MD LAB - CHEMISTRY OR DERABLES Performing Organization Address [facility] Co de Phone Number [address] [phone] * CBC W AUTO DIFFERENTIAL (09/06/2017 11:57 AM CDT) Blood specimen (specimen) BLOOD SPECIMEN / Unknown 09/06/2017 11:57 AM CDT Narrative [facility] - 09/06/2017 12:16 PM CDT The following orders were created for panel order CBC w Differential. Procedure ? Abnormality ? Status ? --------- ? ------ ? CBC WITH DIFFERENTIAL[[id number]] ? Abnormal ?Final result ? Please view results for these tests on the individual orders. Bandar Mansfield MD LAB - HEMATOLOGY O RDERABLES [facility] [address] [place] [address], [facility] * XR CHEST 1VW PORTABLE [...] intact. Report dictated by Rohan Hopkins M.D. (radiology transcriptionist). I, Dr. VIBHA PHELPS M.D. have personally [...] intact. Report dictated by Rohan Hopkins M.D. (radiology transcriptionist). I, Dr. VIBHA PHELPS M.D. have personally reviewed and interpreted thisexamination/study. This report was electronically signed by VIBHA PHELPS M.D. on 09/07/201712:31 PM . Bandar Mansfield MD DIAGNOSTIC IMAGING ORDERABLES * EKG 12-LEAD (09/06/2017 12:00 AM CDT) EKG [facility] Comment: Exam Date/Time: ?? Sep 06 [...] bpm Confirmed by MD Jaime, Aneta ([id number]), supervising editor news reel Robi Pavon ([id number]) on 09/10/2017 5:58:12 PM Referred By: REFERRING NO ? Confirmed By:Aneta Sandoval MD 09/06/2017 Bandar Mansfield MD ECG ORDERABLES [facility] documented in this encounter Visit Diagnoses [...] Araujo RCP)0505 ($ Given - Provider: Jadon Arajuo RCP)0840 ($ Given - Provider: Taylor Coleman [facility])1341 ($ Given - Provider: Taylor Coleman COMMUNICATIONS SCIENTIST)1725 ($ Given - Provider: Taylor Coleman COMMUNICATIONS SCIENTIST)2035 ($ Given - Provider: Jadon Araujo COMMUNICATIONS SCIENTIST) 0141 ($ Given - Provider: Jadon Araujo RCP)0611 ($ Given - Provider: Jadon Araujo RCP)0839 ($ Given - Provider: Taylor Coleman COMMUNICATIONS SCIENTIST)1259 ($ Given - Provider: Taylor Coleman COMMUNICATIONS SCIENTIST)1650 ($ Given - Provider: Taylor Coleman COMMUNICATIONS SCIENTIST)2019 ($ Given - Provider: Michael Callahan RCP) [...] Reyes, RN)2130 ($ Given - Provider: Malaika oGnzalez RN) oxyCODONE (immediate release) (ROXICODONE) tablet 5 [...] documented as of this encounter Care Teams Embroidery Designer Relationship Specialty Start Date End Date Briana Medeiros MD [address] [place], [place] [id number] PCP - General Family Medicine 09/04/17 09/18/17 documented as of this encounter
--- OUTSIDE RECORDS SUMMARY | 2024-05-25 03:06 | XMS_ITS | Encounter Summary ---
Author Organization [facility] Address [address] [place] [address] Care Team Providers Care Handle Sander Operator Name Role Phone Briana Medeiros MD Primary Care Provider [phone] Encounter Details Date Type Department Care Team (Late Contact Info) Description 08/04/2017 Anesthesia Historic Visit [facility] [address] [place] [id number] Social History Tobacco Use Types Packs/Day Years Used Date Smoking Tobacco: Never Assessed Sex and Gender Information Value Date Recorded Sex Assigned at Not on file Gender Identity Not on file Sexual Orientation Not on file documented as of this encounter Plan of Treatment Upcoming Encounters Date Type Department Care Team (Late Contact Info) Description 07/09/2024 12:30 PM PRIMER INSERTING MACHINE OPERATOR Office Visit [facility] - GI [address] [place] [address], [place] [phone] Twin Miller MD [address] [place] [address] DIV [place] [address] 09/19/2024 2:00 PM CDT Office Visit [facility] - Orthopedic Surgery [facility] [facility] [place] [phone] Larry Alexander MD [address] [facility] [address] [place] [address] documented as of this encounter Visit Diagnoses Not on filedocumented in this encounter Care Teams Handle Sander Operator Relationship Specialty Start Date End Date Briana Medeiros MD [address] [place] [address] PCP - General Family Medicine 09/04/17 09/18/17 documented as of this encounter
--- OUTSIDE RECORDS SUMMARY | 2024-05-25 03:06 | XMS_ITS | Encounter Summary ---
Author Organization [facility] Address [address] [facility] [place] [address] Care Team Providers Care Automation Controls Engineer Name Role Phone Briana Medeiros MD Primary Care Provider [phone] Reason for Visit * Auth/Cert Specialty Diagnoses / Procedures Referred By Contac t Referred To Contact Diagnoses ACUTE HYPOXEMIC RESPIRATORY FAILURE Referral ID Status Reason Start Date Expiration Date Visits Re quested Visits Authorized [id number] 1 1 Encounter Details Date Type Department Care Team (Late st Contact Info) Description 09/13/2017 5:06 PM CDT Anesthesia Event [facility] [address] [place] [address] Philip Posada, DO [address] [place] [address] Bandar Meek, DO [address] [place] [address] Anesthesia Record Procedure Summary Procedure Name Responsible [...] Taylor RN 04/26/19 0000 by Lexie Marquis SIGNAL OPERATOR documented in this encounter Social History Tobacco [...] dicussed the anesthesia plan w/ the Resident, VIDEO RENTAL CLERK or AA and The pateint agrees with the plan and accpets the risks and benefits I attest to documenting, updating or reviewing a patient's current medications using all immediate resources available on the date of the encounter. This list must include ALL known prescriptions, lmxt-kif-lpehyyke, herbals, and vitamin/mineral/dietary (nutritional) supplements AND must [...] results for input(s): HCG in the last 89341 hours. documented in this encounter Miscellaneous Notes * Addendum Note - Philip Posada DO - 2017 10:03 AM CDT Addendum created 11/10/17 1003 by Philip Posada DO Anesthesia Attestations filed, Anesthesia Event edited, Procedure Event Log accessed documented in this encounter Plan of Treatment Upcoming Encounters Date Type Department Care Team (Late st Contact Info) Description 07/09/2024 12:30 PM BAD WORK GATHERER Office Visit [facility] - GI [address] [facility], [place] [address] Twin Miller MD [address] [place] [address] 09/19/2024 2:00 PM CDT Office Visit [facility] - Orthopedic Surgery [address] [place] [phone] Larry Alexander MD [address] [facility] [address] [place] [address] documented as of this encounter Visit Diagnoses [...] as of this encounter Care Teams Automation Controls Engineer Relationship Specialty Start Date End Date Briana Medeiros MD [address] [place] [address] PCP - General Family Medicine 09/04/17 09/18/17 documented as of this encounter
--- OUTSIDE RECORDS SUMMARY | 2024-05-25 03:06 | XMS_ITS | Encounter Summary ---
Author Organization [facility] Address [address] [facility] [place] [address] Care Team Providers Care Engagement Specialist Name Role Phone Briana Medeiros MD Primary Care Provider [phone] Encounter Details Date Type Department Care Team (Late Contact Info) Description 06/13/2017 Orders Only [facility] [address] [place] [address] Puneet Faustin MD [address] [place] [address] [address] [place] [address] Other eczema ; Pruritus of skin Social [...] (Late Contact Info) Description 07/09/2024 12:30 PM PERSONAL LINES SALES REP Office Visit [facility] [place] [address] [place] [address], [place] [phone] Twin Miller MD [address] [place] [address] [address] DIV [place] [address] 09/19/2024 2:00 PM CDT Office Visit [facility] - Orthopedic Surgery [address] [place] [address] Larry Alexandre MD [address] [place] [address] documented as of this encounter Visit Diagnoses Diagnosis Other eczema- Primary Pruritus of skin Unspecified pruritic disorder documented in this encounter Care Teams Engagement Specialist Relationship Specialty Start Date End Date Briana Medeiros MD [address] [place] [address] PCP - General Family Medicine 09/04/17 09/18/17 documented as of this encounter
--- OUTSIDE RECORDS SUMMARY | 2024-05-25 03:07 | XMS_ITS | Clinical Summary ---
Author Organization Unknown Care Team Providers Care Human Resource Statistician Name Role Phone LUISA TUCKER, SHAQ Unavailable Unavailable ERICA RN, DINORAH Unavailable Unavailable FRANCESCA BOOK SOLICITOR, TAYLOR Unavailable Unavailable CORNELIA PT, DENITA Unavailable Unavailable [facility] [employer] CASE MANAGER, YURI Unavailable Unavailestrellita WATSON OT, VANDANA Unavailable Unavailable SAJI QUIROS/HEATHER, ALTAF Unavailable Unavail able Payers Payer Name Policy Type Policy Number Effective Date Expira tion Date [facility] [id number] SELF PAY SECONDARY MEDICARE[id number] Problems Condition Name Condition Details Condition Category [...] APNEA (ADULT) (PEDIATRIC) Active 06-06 00:00: 00 LONG-TERM (CURRENT) USE OF ANTICOAGULAN TS Active 06-06 [...] FOLLOWING ANY HOSPITAL ADMISSION. ALL DISCIPLINES (EXCEPT COMMERCIAL BAKING TEACHER) MAY PROVIDE TELEHEALTH PHONE/REMOTE/VIRTUAL VISITS IN LIEU [...] FOLLOWING ANY HOSPITAL ADMISSION. ALL DISCIPLINES (EXCEPT COMMERCIAL BAKING TEACHER) MAY PROVIDE TELEHEALTH PHONE/REMOTE/VIRTUAL VISITS IN LIEU [...] MINIMIZE RISK OF HOSPITALIZATION. AGENT ORANGE IN [facility] SKILLED NURSE TO INSTRUCT ON SELF-CARE [...] MINIMIZE RISK OF HOSPITALIZATION. AGENT ORANGE IN [facility] SKILLED NURSE TO INSTRUCT ON SELF-CARE [...] MANAGEMENT INCLUDING: ADMINISTRATION AT 1 L/MIN VIA MS CONTINUOUS CARE OF EQUIPMENT AND SAFETY. [code = OXYGEN THERAPY; SKILLED NURSE TO INSTRUCT ON OXYGEN MANAGEMENT INCLUDING: ADMINISTRATION AT 1 L/MIN VIA MS CONTINUOUS CARE OF EQUIPMENT AND SAFETY.] Future [...] IN RESULTS TO DR ROGELIO DEMPSEY FAX [phone] [code = VENIPUNCTURE DIAGNOSTIC; SKILLED NURSE TO PERFORM VENIPUNCTURE ON 01/03/20 FOR N17.9 BMP ROUTINE FOR ACUTE KIDNEY FAILURE PREFERENCE IS [facility] FAX/CALL IN RESULTS TO DR ROGELIO DEMPSEY FAX [phone]] Future Scheduled Test AGENCY MAY PERFORM A RESUMPTION OF CARE VISIT FOLLOWING ANY HOSPITAL ADMISSION. ALL DISCIPLINES (EXCEPT [facility]) MAY PROVIDE TELEHEALTH PHONE/REMOTE/VIRTUAL VISITS IN LIEU [...] FOLLOWING ANY HOSPITAL ADMISSION. ALL DISCIPLINES (EXCEPT COMMERCIAL BAKING TEACHER) MAY PROVIDE TELEHEALTH PHONE/REMOTE/VIRTUAL VISITS IN LIEU [...] 2019-12-29 00:00:00 2020-02-26 00:00:00 Outpatient [facility] [id number] 2020-02-26 00:00:00 DISCHARGE TO HOME OR SELF CARE INDEPENDEN T WITH USE OF ASSISTIVE DEVICE HH OR PAL- GOALS MET 91.18
[2024-05-25 06:21] LABS: Basophils Percent Auto 0.1 % (0.2-1.2); Hematocrit 37.6 % (42.0-52.0); Hemoglobin 11.9 g/dL (14.0-18.0); Immature Granulocyte Absolute 0.14 K/mm3 (0.00-0.031); Immature Granulocyte Percent A 1.5 % (0-0.5); Immature Platelet Fraction Pct 21.6 % (0.9-11.2); Lymphocytes Absolute Auto 0.65 K/mm3 (0.9-3.2); Lymphocytes Percent Auto 6.8 % (18.3-44.2); Mean Corpuscular HGB Conc 31.6 g/dl (32-36); Mean Corpuscular Hemoglobin 29.5 pg (26-34); Mean Corpuscular Volume 93.1 fl (80-100); Monocytes Absolute Auto 0.7 K/mm3 (0.1-0.6); Neutrophils Absolute Auto 8.1 K/mm3 (1.3-6.7); Neutrophils Percent Auto 84.6 % (45.5-73.1); Platelet Count Result 137 k/mm3 (150-375); Red Blood Count 4.04 M/mm3 (4.6-6.20); Red Cell Distribution Width 16.4 % (11.5-14.5); White Blood Count 9.6 K/mm3 (4.5-10.0)
[2024-05-25 06:32] LABS: Alanine Aminotransferase 51 U/L (6-50); Albumin Level 3.6 g/dL (3.5-5.1); Alkaline Phosphatase 100 U/L (38-126); Anion Gap 3 mmol/L (4-12); Aspartate Amino Transferase 47 U/L (17-59); Bilirubin,Total 0.8 mg/dL (0.2-1.3); Blood Urea Nitrogen 53 mg/dL (9-20); Calcium 8.8 mg/dL (8.4-10.2); Carbon Dioxide 28 mmol/L (22-30); Chloride 101 mmol/L (98-107); Estimated CRCL calculation 42 ml/min; Estimated Glomerular Filt Rate 39; Glucose 127 mg/dL (65-110); Potassium 4.5 mmol/L (3.4-5.0); Sodium 132 mmol/L (137-145)
[2024-05-25 08:14] LABS: Glucose Point of Care 120 mg/dl (65-105)
[2024-05-25] MEDS: FLUTICASONE/UMECLIDIN/VILANTER 100-62.5-25 MCG ELLIPTA 1 PUFF INHALATION (08:27)
[2024-05-25] MEDS: ROFLUMILAST 500 MCG TABLET PO (09:08)
[2024-05-25] MEDS: FERROUS SULFATE 325 MG TABLET DR PO (09:08)
[2024-05-25] MEDS: ASPIRIN 81 MG ENTERIC TABLET PO (09:08)
[2024-05-25] MEDS: MAGNESIUM OXIDE 400 MG TABLET PO ×2 (09:08→17:39)
[2024-05-25] MEDS: METOPROLOL SUCCINATE EXT REL 50 MG TABCR PO (09:08)
[2024-05-25] MEDS: dexAMETHasone 2 MG TABLET 6 MG PO (09:09)
[2024-05-25] MEDS: SPIRONOLACTONE 12.5 MG TABLET PO (09:09)
[2024-05-25] MEDS: APIXABAN 5 MG TABLET PO ×2 (09:09→20:49)
[2024-05-25] MEDS: CHOLECALCIFEROL 1,000 UNITS TABLET 1000 UNITS PO (09:09)
[2024-05-25] MEDS: ACIDOPHILUS/BULGARICUS CHEWABLE TABLET 1 TABLET PO ×3 (09:10→17:39)
[2024-05-25] MEDS: PYRIDOXINE HCL 50 MG TABLET 100 MG PO (09:10)
[2024-05-25] MEDS: GABAPENTIN 300 MG CAPSULE PO ×2 (09:10→17:39)
[2024-05-25] MEDS: LORATADINE 10 MG TABLET PO (09:10)
[2024-05-25] MEDS: FOLIC ACID 0.4 MG TABLET PO (09:10)
[2024-05-25] MEDS: FLUTICASONE PROPIONATE 0.05% NA SPR 16 GM BTL (*BKC) 2 SPRAY NASAL ×2 (09:11→17:39)
[2024-05-25] MEDS: EUCERIN CREAM 120 GM JAR 1 APPLIC TOPICAL (09:11)
[2024-05-25] MEDS: guaiFENesin 12 HR 600 MG TABCR 1200 MG PO ×2 (09:11→20:49)
[2024-05-25] MEDS: PANTOPRAZOLE 40 MG TABLET PO ×2 (09:11→17:39)
[2024-05-25] MEDS: LIDOCAINE 5% PATCH 1 PATCH TRANSDERM (09:12)
[2024-05-25] MEDS: TRIAMCINOLONE ACET 0.1% CREAM 15 GM TUBE 1 APPLIC TOPICAL (09:12)
[2024-05-25] MEDS: BUMETANIDE INJ 1 MG/4 ML VIAL IV PUSH (09:13)
[2024-05-25] MEDS: IPRATROPIUM 0.5 MG/ALBUTEROL SULFATE 2.5 MG AMPUL.NEB 3 ML NEBULIZE (09:17)
[2024-05-25 12:13] LABS: Glucose Point of Care 135 mg/dl (65-105)
[2024-05-25] MEDS: DOXYCYCLINE HYCLATE 100 MG TABLET PO (12:22)
[2024-05-25] MEDS: ACETAMINOPHEN 325 MG TABLET 650 MG PO (12:23)
--- NOTE | 2024-05-25 13:21 | P.PNIM_ITS ---
Progress Note: A&P Assessment and Plan (1) Acute on chronic respiratory failure with hypoxia and hypercapnia: Code(s): J96.21 - Acute and chronic respiratory failure with hypoxia; J96.22 - Acute and chronic respiratory failure with hypercapnia Status: Acute Assessment and Plan: * respiratory panel positive for COVID-19 * elevated proBNP 15,900-- continue diuresis with Bumex until creatinine is back to baseline * continue to wean O2 for sat greater than 90% * currently on 3 L nasal cannula, baseline is 2L NC at rest * continue DuoNeb breathing treatments * continue doxycycline * was given a loading dose of Solu-Medrol 125 mg IV push in the ED * continue Decadron and remdesivir for the COVID-19, day 3 * respiratory panel was negative for influenza a and B, RSV * Agent [place] exposure in [place], may be of some significance to his overall health problems 05/24/2024 * weaned back to 2L patient baseline * added Mucinex * added incentive spirometer * Follow-up out/patient with pulmonary No changes back to baseline (2) COVID-19: Code(s): U07.1 - COVID-19 Status: Acute Assessment and Plan: * respiratory panel positive for COVID 19 * continue Decadron and remdesivir as stated above * see above plan of care 05/25/24 * completed remdesivir therapy * Will continue with Decadron until discharge (3) Acute exacerbation of CHF (congestive heart failure): Qualifiers: Heart failure type: diastolic Qualified Code(s): I50.33 - Acute on chronic diastolic (congestive) heart failure Code(s): I50.9 - Heart failure, unspecified Status: Acute Assessment and Plan: * echocardiogram reviewed from 11/04/2023 shown normal LV systolic function with an estimated EF of 60-65%, grade 1 diastolic dysfunction * initial proBNP [id number] * continue metoprolol, spironolactone. Continue IV Bumex for now until creatinine is back to baseline (4) Chronic obstructive pulmonary disease: Qualifiers: COPD type: unspecified COPD Qualified Code(s): J44.9 - Chronic obstructive pulmonary disease, unspecified Code(s): J44.9 - Chronic obstructive pulmonary disease, unspecified Status: Chronic Assessment and Plan: * continue DuoNeb breathing treatments * currently on Decadron 6 mg daily * continue Flonase and Claritin * continue roflumilast (5) Acute kidney injury superimposed on chronic kidney disease: Code(s): N17.9 - Acute kidney failure, unspecified; N18.9 - Chronic kidney disease, unspecified Status: Acute Assessment and Plan: * creatinine currently 1.90, EGFR 35 * baseline creatinine appears to be 1.2-1.3, EGFR 54-59 * continue to diurese with IV Bumex * continue to trend * renally dose medications as needed * avoid testing with IV contrast and nephrotoxic medications 05/24/24 * Improving (6) Diabetes mellitus: Code(s): E11.9 - Type 2 diabetes mellitus without complications Status: Acute Assessment and Plan: * Blood sugars ranging 116-122 * Hgb A1C 6.0 * Accu checks AC/HS * moderate dose SSI ordered * hypoglycemic protocol in place * Diabetic diet ordered * not on any home medications currently, this is a new diagnosis- he will likely need metformin upon discharge as well as a glucometer with accessories * natural resources extension educator consult * dietitian consult (7) Thrombocytopenia: Code(s): D69.6 - Thrombocytopenia, unspecified Status: Acute Assessment and Plan: * platelet count 130 today * his platelet count was in normal range back in January of this year * Vitamin B12 459, Folate 19.7 * Likely due to liver cirrhosis 05/24/2024 * 136 Improved (8) Chronic anemia: Code(s): D64.9 - Anemia, unspecified Status: Chronic Assessment and Plan: * hemoglobin 10.8--SORAYA * Continue ferrous sulfate * could be due to chronic kidney disease however is on Eliquis for his AFib * Vitamin B 12 459, Folate 19.7, Iron 29, Ferritin 141 * TSH 0.331, free T4 1.49, total T3 0.71--likely subclinical, defer to primary care doctor at discharge STABLE (9) Benign prostatic hyperplasia with urinary retention: Code(s): N40.1 - Benign prostatic hyperplasia with lower urinary tract symptoms; R33.8 - Other retention of urine Status: Chronic Assessment and Plan: * continue tamsulosin * Currently has umaña catheter in place due to urinary retention * Follows with Dr. Brown * Will consult Urology for further guidance. 05/24/24 * voiding trial (10) Paroxysmal atrial fibrillation: Code(s): I48.0 - Paroxysmal atrial fibrillation Status: Chronic Assessment and Plan: * continue Eliquis and metoprolol (11) Liver cirrhosis secondary to nonalcoholic steatohepatitis (RAYGOZA): Code(s): K75.81 - Nonalcoholic steatohepatitis (RAYGOZA); K74.60 - Unspecified cirrhosis of liver Status: Chronic Assessment and Plan: * continue spironolactone * trend liver enzymes (12) Obstructive sleep apnea treated with BiPAP: Code(s): G47.33 - Obstructive sleep apnea (adult) (pediatric) Status: Chronic Assessment and Plan: * CPAP ordered for night use Plan Code status: Full code per patient DVT prophylaxis: Eliquis Stress ulcer prophylaxis: Protonix 40 daily PT/OT notes: Rehab liberty Disposition: Patient admitted tot medical unit for treatment of acute respiratory failure with hypoxia secondary to COVID. patient still with continued weakness recommendation for rehab. Waiting on insurance auth for rehab plan for [facility] Time Spent With Patient Time with patient: 15 - 25 minutes Subjective Date/time seen: 05/25/24 13:21 Interval history: Patient is a 73-year-old male with the unit for acute on chronic respiratory failure with hypoxia secondary to COVID. 05/25/2024: Patient up in chair feeling mildly better today and tolerated his 2L NC overnight. Denied SOB, CP, fever, chills, N/v. Patient agreed to [facility] for rehab pending auth. Review of Systems Review of Systems: 12 systems were reviewed and are negativ e except for as per HPI. All systems reviewed & are unremarkable except as noted in HPI and below Exam Narrative: General: In no acute distress, well nourished still weak Cardiac: Normal S1 and S2. No murmur, gallops or friction rubs, peripheral pulses intact. Respiratory: Crackles noted in left lung base, productive cough, no other adventitious lung sounds, currently on 2L NC patient baseline Gastrointestinal: soft, non-distended, non-tender, normoactive bowel sounds. : Awaiting 1st void post catheter removal for voiding trial Neuro: Alert and oriented x4 Objective Data Vital Signs Vital Signs: Vital Signs - 24 hr 05/24/24 14:00 05/24/24 21:00 05/24/24 21:19 Temperature 99.2 F Pulse Rate 79 81 Respiratory Rate 14 18 Blood Pressure 132/82 Pulse Oximetry 100 100 100 Oxygen Delivery Nasal Cannula Nasal Cannula Oxygen Flow Rate 2 2 Fraction of Inspired Oxygen 28 05/24/24 21:19 05/24/24 21:28 05/24/24 22:00 Temperature 97.8 F Pulse Rate 78 81 62 Respiratory Rate 18 18 18 Blood Pressure 121/73 Pulse Oximetry 100 Oxygen Delivery Oxygen Flow Rate Fraction of Inspired Oxygen 05/24/24 23:43 05/25/24 06:00 05/25/24 08:28 Temperature 97.3 F L Pulse Rate 80 82 Respiratory Rate 20 18 Blood Pressure 128/74 Pulse Oximetry 98 99 100 Oxygen Delivery BiPAP Nasal Cannula Oxygen Flow Rate 2 Fraction of Inspired Oxygen 05/25/24 09:08 05/25/24 09:17 05/25/24 09:25 Temperature Pulse Rate 82 83 80 Respiratory Rate 18 18 Blood Pressure Pulse Oximetry Oxygen Delivery Oxygen Flow Rate Fraction of Inspired Oxygen Intake/Output Intake/Output: Intake & Output 05/22/24 05/23/24 05/24/24 05/25/24 23:59 23:59 23:59 23:59 Intake Total 1240 2270 1770 Output Total 2200 2400 2870 600 Balance -960 -130 -1100 -600 Meds/Results Medications: Active Medications Generic Name Dose Route Start Last Admin Trade Name Freq PRN Reason Stop Dose Admin Acetaminophen 650 mg 05/20/24 21:07 05/25/24 12:23 Acetaminophen 325 Mg Tablet PO 650 mg Q4H PRN Administration PAIN RATED 1-3 Albuterol/Ipratropium 3 ml 05/20/24 16:34 05/25/24 09:17 Ipratropium 0.5 Mg/Albuterol Sulfate 2.5 Mg Ampul.Neb 3 Ml NEBULIZE 3 ml Q6HRT PRN Administration Shortness Of Breath Or Wheezing Apixaban 5 mg 05/20/24 21:20 05/25/24 09:09 Apixaban 5 Mg Tablet PO 5 mg Q12HR ALEKSEY Administration Aspirin 81 mg 05/21/24 09:00 05/25/24 09:08 Aspirin 81 Mg Enteric Tablet PO 81 mg DAILY ALEKSEY Administration Baclofen 10 mg 05/20/24 21:10 05/24/24 20:50 Baclofen 10 Mg Tablet BY MOUTH 10 mg HS ALEKSEY Administration Bumetanide 1 mg 05/21/24 09:00 05/25/24 09:13 Bumetanide Inj 1 Mg/4 Ml Vial IV PUSH 1 mg QAM ALEKSEY Administration Dexamethasone 6 mg 05/21/24 08:00 05/25/24 09:09 Dexamethasone 2 Mg Tablet PO 05/30/24 08:01 6 mg DAILY@0800 ALEKSEY Administration Dextrose 12.5 gm 05/20/24 16:33 Dextrose 50% 25 Gm/50 Ml Syringe IV PUSH PRN PRN Hypoglycemia Protocol Doxycycline Hyclate 100 mg 05/21/24 12:00 05/25/24 12:22 Doxycycline Hyclate 100 Mg Tablet PO 100 mg DAILY@1200 ALEKSEY Administration Ferrous Sulfate 325 mg 05/21/24 09:00 05/25/24 09:08 Ferrous Sulfate [address] PO 325 mg DAILY ALEKSEY Administration Fluticasone Propionate 2 spray 05/20/24 21:10 05/25/24 09:11 Fluticasone Propionate 0.05% Na Spr 16 Gm Btl (*Bkc) NASAL 2 spray BID ALEKSEY Administration Fluticasone/Umeclidinium/Vilanterol 1 puff 05/21/24 09:00 05/25/24 08:27 Fluticasone/Umeclidin/Vilanter 100-62.5-25 Mcg Ellipta INHALATION 1 puff DAILY ALEKSEY Administration Folic Acid 0.4 mg 05/21/24 09:00 05/25/24 09:10 Folic Acid 0.4 Mg Tablet PO 0.4 mg DAILY ALEKSEY Administration Gabapentin 300 mg 05/20/24 21:25 05/25/24 09:10 Gabapentin 300 Mg Capsule PO 300 mg BID ALEKSEY Administration Glucagon 1 mg 05/20/24 16:33 Glucagon For Inj 1 Mg Vial IM PRN PRN Hypoglycemia Protocol Glucose 15 gm 05/20/24 16:33 Glucose Oral Gel 15 Gm Of Glucse In 37.5 Gm Tube PO PRN PRN Hypoglycemia Protocol Guaifenesin 1,200 mg 05/24/24 21:00 05/25/24 09:11 Guaifenesin 12 Hr 600 Mg Tabcr PO 1,200 mg Q12HR ALEKSEY Administration Hydrocortisone 1 applic 05/20/24 21:07 Hydrocortisone 1% 30 Gm Cream TOPICAL DAILY PRN itching Dextrose 1,000 mls @ 100 mls/hr 05/20/24 16:33 Dextrose 5% 1,000 Ml IVPB PRN PRN Hypoglycemia Protocol Insulin Aspart 3 - 6 units 05/21/24 12:00 05/25/24 12:20 Insulin Aspart (*Bkc) 100 Units/Ml SUB-Q Not Given TIDWM [facility] Protocol Insulin Aspart 1 - 3 units 05/21/24 21:00 05/24/24 20:51 Insulin Aspart (*Bkc) 100 Units/Ml SUB-Q 1 units HS ALEKSEY Administration Protocol Lactobacillus Acidophilus 1 tablet 05/20/24 21:30 05/25/24 12:22 Acidophilus/Bulgaricus Chewable Tablet PO 1 tablet TID ALEKSEY Administration Lidocaine 1 patch 05/21/24 12:05 05/25/24 09:12 Lidocaine 5% Patch TRANSDERM 1 patch DAILY ALEKSEY Administration Loratadine 10 mg 05/21/24 09:00 05/25/24 09:10 Loratadine 10 Mg Tablet PO 10 mg DAILY ALEKSEY Administration Magnesium Oxide 400 mg 05/20/24 21:30 05/25/24 09:08 Magnesium Oxide 400 Mg Tablet PO 400 mg BID ALEKSEY Administration Metoprolol Succinate 50 mg 05/21/24 09:00 05/25/24 09:08 Metoprolol Succinate Ext Rel 50 Mg Tabcr PO 50 mg DAILY ALEKSEY Administration Miscellaneous Information 0 each 05/21/24 00:01 Diclofenac Gel 3% Is Non-Formulary. We Stock 1% Or Use Pt Own Supply? XX 06/20/24 00:00 CLARIFY ALEKSEY Multi-Ingred Cream/Lotion/Oil/Oint 1 applic 05/21/24 09:00 05/25/24 09:11 Eucerin Cream 120 Gm Jar TOPICAL 1 applic DAILY ALEKSEY Administration Non-Formulary Medication 1 applic 05/20/24 21:07 Diclofenac Sodium TOPICAL ONCE PRN pain Pantoprazole Sodium 40 mg 05/20/24 21:35 05/25/24 09:11 Pantoprazole 40 Mg Tablet PO 40 mg BID ALEKSEY Administration Pyridoxine HCl 100 mg 05/21/24 09:00 05/25/24 09:10 Pyridoxine Hcl 50 Mg Tablet PO 100 mg DAILY ALEKSEY Administration Roflumilast 500 mcg 05/21/24 09:00 05/25/24 09:08 Roflumilast 500 Mcg Tablet PO 500 mcg DAILY ALEKSEY Administration Spironolactone 12.5 mg 05/21/24 09:00 05/25/24 09:09 Spironolactone 12.5 Mg Tablet PO 12.5 mg DAILY ALEKSEY Administration Tamsulosin HCl 0.4 mg 05/20/24 21:35 05/24/24 20:51 Tamsulosin Hcl 0.4 Mg Capsule PO 0.4 mg HS ALEKSEY Administration Triamcinolone Acetonide 1 applic 05/21/24 09:00 05/25/24 09:12 Triamcinolone Acet 0.1% Cream 15 Gm Tube TOPICAL 1 applic DAILY ALEKSEY Administration Vitamin D 1,000 units 05/21/24 09:00 05/25/24 09:09 Cholecalciferol 1,000 Units Tablet PO 1,000 units DAILY ALEKSEY Administration Radiology Results: ITS Impressions Chest X-Ray 05/20/24 12:22 Impression: Probable mild bibasilar pulmonary edema. Labs Labs: Laboratory Results - last 24 hr 05/24/24 05/24/24 05/25/24 17:12 20:07 05:41 WBC 9.6 RBC 4.04 L Hgb 11.9 L Hct 37.6 L MCV 93.1 MCH 29.5 MCHC 31.6 L RDW 16.4 H Plt Count 137 L MPV TNP Immature Gran % (Auto) 1.5 H Neut % (Auto) 84.6 H Lymph % (Auto) 6.8 L [place] % (Auto) 7.0 Eos % (Auto) 0.0 Baso % (Auto) 0.1 L Lymph # (Auto) 0.65 L [place] # (Auto) 0.7 H Eos # (Auto) 0.0 Baso # (Auto) 0.0 Abs Immat Gran (auto) 0.14 H Absolute Neuts (auto) 8.1 H Absolute Nucleated RBC 0.000 Nucleated RBC % 0.0 % Immature Plt Fraction 21.6 H Sodium 132 L Potassium 4.5 Chloride 101 Carbon Dioxide 28 Anion Gap 3 L BUN 53 H Creatinine 1.70 H Estim Creat Clear Calc 42 Estimated GFR 39 L Glucose 127 H POC Capillary Glucose 143 H 212 H Calcium 8.8 Total Bilirubin 0.8 AST 47 ALT 51 H Alkaline Phosphatase 100 Total Protein 6.0 L Albumin 3.6 05/25/24 05/25/24 08:11 12:10 WBC RBC Hgb Hct MCV MCH MCHC RDW Plt Count MPV Immature Gran % (Auto) Neut % (Auto) Lymph % (Auto) [place] % (Auto) Eos % (Auto) Baso % (Auto) Lymph # (Auto) [place] # (Auto) Eos # (Auto) Baso # (Auto) Abs Immat Gran (auto) Absolute Neuts (auto) Absolute Nucleated RBC Nucleated RBC % % Immature Plt Fraction Sodium Potassium Chloride Carbon Dioxide Anion Gap BUN Creatinine Estim Creat Clear Calc Estimated GFR Glucose POC Capillary Glucose 120 H 135 H Calcium Total Bilirubin AST ALT Alkaline Phosphatase Total Protein Albumin Quality VTE Prophylaxis VTE prophylaxis: pharmacologic ordered -Patient's previous records reviewed on admission -ER notes reviewed in detail on admission -discussed all findings and current treatment plan with patient/Family/POA -Consultations reviewed for recommendations -Patient's disposition for safe discharge discussed with case management specialist Dictation performed by [employer] direct speech recognition software, therefore employment security officer variants and typographical errors may occur. Hospitalist MIPS Advance Care Plan I have confirmed that the patient's Advanced Care Plan is present, code status is documented, or surrogate decision maker is listed in patient medical record.: Yes Medication Reconciliation I have utilized all available resources to obtain, update and review the patients current medications (includes all prescriptions, OTC, herbals, cannabis, and nutritional supplements).: Yes The patient is not eligible for med reconciliation; the patient is in a emergent medical situation where delaying treatment would jeopardize the patients health.: No
[2024-05-25 17:15] LABS: Glucose Point of Care 134 mg/dl (65-105)
[2024-05-25] MEDS: BACLOFEN 10 MG TABLET BY MOUTH (20:49)
[2024-05-25] MEDS: TAMSULOSIN HCL 0.4 MG CAPSULE PO (20:50)
[2024-05-25 21:02] LABS: Glucose Point of Care 159 mg/dl (65-105)
[2024-05-26] VITALS (11 sets, daily range): BP systolic 109–128; BP diastolic 71–82; PULSE 69–87; RESP 16–22; TEMP 36.2–36.4; O2SAT 94–100
[2024-05-26 05:24] LABS: Basophils Percent Auto 0.4 % (0.2-1.2); Hematocrit 37.8 % (42.0-52.0); Hemoglobin 11.8 g/dL (14.0-18.0); Immature Granulocyte Absolute 0.19 K/mm3 (0.00-0.031); Immature Granulocyte Percent A 1.9 % (0-0.5); Immature Platelet Fraction Pct 22.1 % (0.9-11.2); Lymphocytes Absolute Auto 0.72 K/mm3 (0.9-3.2); Lymphocytes Percent Auto 7.3 % (18.3-44.2); Mean Corpuscular HGB Conc 31.2 g/dl (32-36); Mean Corpuscular Hemoglobin 28.6 pg (26-34); Mean Corpuscular Volume 91.5 fl (80-100); Mean Platelet Volume 13.7 fl (7.4-10.4); Monocytes Absolute Auto 0.7 K/mm3 (0.1-0.6); Monocytes Percent Auto 6.6 % (2.6-8.5); Neutrophils Absolute Auto 8.3 K/mm3 (1.3-6.7); Neutrophils Percent Auto 83.8 % (45.5-73.1); Platelet Count Result 150 k/mm3 (150-375); Red Blood Count 4.13 M/mm3 (4.6-6.20); Red Cell Distribution Width 16.3 % (11.5-14.5); White Blood Count 9.9 K/mm3 (4.5-10.0)
[2024-05-26 05:31] LABS: Alanine Aminotransferase 58 U/L (6-50); Albumin Level 3.6 g/dL (3.5-5.1); Alkaline Phosphatase 101 U/L (38-126); Anion Gap 1 mmol/L (4-12); Aspartate Amino Transferase 44 U/L (17-59); Blood Urea Nitrogen 56 mg/dL (9-20); Calcium 9.1 mg/dL (8.4-10.2); Carbon Dioxide 29 mmol/L (22-30); Chloride 100 mmol/L (98-107); Estimated CRCL calculation 44 ml/min; Estimated Glomerular Filt Rate 42; Glucose 133 mg/dL (65-110); Potassium 4.4 mmol/L (3.4-5.0); Sodium 130 mmol/L (137-145)
[2024-05-26] MEDS: FLUTICASONE/UMECLIDIN/VILANTER 100-62.5-25 MCG ELLIPTA 1 PUFF INHALATION (08:08)
[2024-05-26 08:20] LABS: Glucose Point of Care 125 mg/dl (65-105)
[2024-05-26] MEDS: FERROUS SULFATE 325 MG TABLET DR PO (08:52)
[2024-05-26] MEDS: guaiFENesin 12 HR 600 MG TABCR 1200 MG PO ×2 (08:52→21:03)
[2024-05-26] MEDS: PYRIDOXINE HCL 50 MG TABLET 100 MG PO (08:52)
[2024-05-26] MEDS: APIXABAN 5 MG TABLET PO ×2 (08:53→21:03)
[2024-05-26] MEDS: FOLIC ACID 0.4 MG TABLET PO (08:53)
[2024-05-26] MEDS: LORATADINE 10 MG TABLET PO (08:53)
[2024-05-26] MEDS: ACIDOPHILUS/BULGARICUS CHEWABLE TABLET 1 TABLET PO ×3 (08:54→17:18)
[2024-05-26] MEDS: CHOLECALCIFEROL 1,000 UNITS TABLET 1000 UNITS PO (08:54)
[2024-05-26] MEDS: ASPIRIN 81 MG ENTERIC TABLET PO (08:54)
[2024-05-26] MEDS: dexAMETHasone 2 MG TABLET 6 MG PO (08:54)
[2024-05-26] MEDS: PANTOPRAZOLE 40 MG TABLET PO ×2 (08:55→17:18)
[2024-05-26] MEDS: GABAPENTIN 300 MG CAPSULE PO ×2 (08:55→17:18)
[2024-05-26] MEDS: MAGNESIUM OXIDE 400 MG TABLET PO ×2 (08:55→17:18)
[2024-05-26] MEDS: ROFLUMILAST 500 MCG TABLET PO (08:55)
[2024-05-26] MEDS: SPIRONOLACTONE 12.5 MG TABLET PO (08:55)
[2024-05-26] MEDS: ACETAMINOPHEN 325 MG TABLET 650 MG PO ×2 (08:56→21:03)
[2024-05-26] MEDS: METOPROLOL SUCCINATE EXT REL 50 MG TABCR PO (08:56)
[2024-05-26] MEDS: TRIAMCINOLONE ACET 0.1% CREAM 15 GM TUBE 1 APPLIC TOPICAL (08:57)
[2024-05-26] MEDS: BUMETANIDE INJ 1 MG/4 ML VIAL IV PUSH (08:57)
[2024-05-26] MEDS: LIDOCAINE 5% PATCH 1 PATCH TRANSDERM (08:57)
[2024-05-26] MEDS: EUCERIN CREAM 120 GM JAR 1 APPLIC TOPICAL (08:57)
[2024-05-26] MEDS: FLUTICASONE PROPIONATE 0.05% NA SPR 16 GM BTL (*BKC) 2 SPRAY NASAL ×2 (08:57→17:18)
--- NOTE | 2024-05-26 09:02 | P.PNIM_ITS ---
Progress Note: A&P Assessment and Plan (1) Acute on chronic respiratory failure with hypoxia and hypercapnia: Code(s): J96.21 - Acute and chronic respiratory failure with hypoxia; J96.22 - Acute and chronic respiratory failure with hypercapnia Status: Acute Assessment and Plan: * respiratory panel positive for COVID-19 * elevated proBNP 15,900-- continue diuresis with Bumex until creatinine is back to baseline * continue to wean O2 for sat greater than 90% * currently on 3 L nasal cannula, baseline is 2L NC at rest * continue DuoNeb breathing treatments * continue doxycycline * was given a loading dose of Solu-Medrol 125 mg IV push in the ED * continue Decadron and remdesivir for the COVID-19, day 3 * respiratory panel was negative for influenza a and B, RSV * [place] exposure in [place], may be of some significance to his overall health problems 05/24/2024 * weaned back to 2L patient baseline * added Mucinex * added incentive spirometer * Follow-up out/patient with pulmonary No changes back to baseline (2) COVID-19: Code(s): U07.1 - COVID-19 Status: Acute Assessment and Plan: * respiratory panel positive for COVID 19 * continue Decadron and remdesivir as stated above * see above plan of care 05/25/24 * completed remdesivir therapy * Will continue with Decadron until discharge (3) Acute exacerbation of CHF (congestive heart failure): Qualifiers: Heart failure type: diastolic Qualified Code(s): I50.33 - Acute on chronic diastolic (congestive) heart failure Code(s): I50.9 - Heart failure, unspecified Status: Acute Assessment and Plan: * echocardiogram reviewed from 11/04/2023 shown normal LV systolic function with an estimated EF of 60-65%, grade 1 diastolic dysfunction * initial proBNP [id number] * continue metoprolol, spironolactone. Continue IV Bumex for now until creatinine is back to baseline (4) Chronic obstructive pulmonary disease: Qualifiers: COPD type: unspecified COPD Qualified Code(s): J44.9 - Chronic obstructive pulmonary disease, unspecified Code(s): J44.9 - Chronic obstructive pulmonary disease, unspecified Status: Chronic Assessment and Plan: * continue DuoNeb breathing treatments * currently on Decadron 6 mg daily * continue Flonase and Claritin * continue roflumilast (5) Acute kidney injury superimposed on chronic kidney disease: Code(s): N17.9 - Acute kidney failure, unspecified; N18.9 - Chronic kidney disease, unspecified Status: Acute Assessment and Plan: * creatinine currently 1.90, EGFR 35 * baseline creatinine appears to be 1.2-1.3, EGFR 54-59 * continue to diurese with IV Bumex * continue to trend * renally dose medications as needed * avoid testing with IV contrast and nephrotoxic medications 05/24/24 * Improving (6) Diabetes mellitus: Code(s): E11.9 - Type 2 diabetes mellitus without complications Status: Acute Assessment and Plan: * Blood sugars ranging 116-122 * Hgb A1C 6.0 * Accu checks AC/HS * moderate dose SSI ordered * hypoglycemic protocol in place * Diabetic diet ordered * not on any home medications currently, this is a new diagnosis- he will likely need metformin upon discharge as well as a glucometer with accessories * development educator consult * dietitian consult (7) Thrombocytopenia: Code(s): D69.6 - Thrombocytopenia, unspecified Status: Acute Assessment and Plan: * platelet count 130 today * his platelet count was in normal range back in January of this year * Vitamin B12 459, Folate 19.7 * Likely due to liver cirrhosis 05/24/2024 * 136 Improved (8) Chronic anemia: Code(s): D64.9 - Anemia, unspecified Status: Chronic Assessment and Plan: * hemoglobin 10.8--SORAYA * Continue ferrous sulfate * could be due to chronic kidney disease however is on Eliquis for his AFib * Vitamin B 12 459, Folate 19.7, Iron 29, Ferritin 141 * TSH 0.331, free T4 1.49, total T3 0.71--likely subclinical, defer to primary care doctor at discharge STABLE (9) Benign prostatic hyperplasia with urinary retention: Code(s): N40.1 - Benign prostatic hyperplasia with lower urinary tract symptoms; R33.8 - Other retention of urine Status: Chronic Assessment and Plan: * continue tamsulosin * Currently has umaña catheter in place due to urinary retention * Follows with Dr. Brown * Will consult Urology for further guidance. 05/24/24 * voiding trial (10) Paroxysmal atrial fibrillation: Code(s): I48.0 - Paroxysmal atrial fibrillation Status: Chronic Assessment and Plan: * continue Eliquis and metoprolol (11) Liver cirrhosis secondary to nonalcoholic steatohepatitis (RAYGOZA): Code(s): K75.81 - Nonalcoholic steatohepatitis (RAYGOZA); K74.60 - Unspecified cirrhosis of liver Status: Chronic Assessment and Plan: * continue spironolactone * trend liver enzymes (12) Obstructive sleep apnea treated with BiPAP: Code(s): G47.33 - Obstructive sleep apnea (adult) (pediatric) Status: Chronic Assessment and Plan: * CPAP ordered for night use Plan Code status: Full code per patient DVT prophylaxis: Eliquis Stress ulcer prophylaxis: Protonix 40 daily PT/OT notes: [facility] Disposition: Patient admitted tot medical unit for treatment of acute respiratory failure with hypoxia secondary to COVID. patient still with continued weakness recommendation for rehab. Waiting on insurance auth for rehab plan for [facility] bed Time Spent With Patient Time with patient: 15 - 25 minutes Subjective Date/time seen: 05/26/24 09:02 Interval history: Patient is a 73-year-old male with the unit for acute on chronic respiratory failure with hypoxia secondary to COVID. 05/26/2024: Patient up in chair feels good today no SOB and oxygen requirement back to baseline. Still reporting weakness, good appetite and no difficulties with ur ination or defecating. Approval for [facility] starts on 05/28. Review of Systems Review of Systems: 12 systems were reviewed and are negativ e except for as per HPI. All systems reviewed & are unremarkable except as noted in HPI and below Exam Narrative: General: In no acute distress, well nourished still weak Cardiac: Normal S1 and S2. No murmur, gallops or friction rubs, peripheral pulses intact. Respiratory: Crackles noted in left lung base, productive cough, no other adventitious lung sounds, currently on 2L NC patient baseline Gastrointestinal: soft, non-distended, non-tender, normoactive bowel sounds. : Awaiting 1st void post catheter removal for voiding trial Neuro: Alert and oriented x4 Objective Data Vital Signs Vital Signs: Vital Signs - 24 hr 05/25/24 09:08 05/25/24 09:17 05/25/24 09:25 Temperature Pulse Rate 82 83 80 Respiratory Rate 18 18 Blood Pressure Pulse Oximetry Oxygen Delivery Oxygen Flow Rate Fraction of Inspired Oxygen 05/25/24 14:22 05/25/24 20:50 05/25/24 21:16 Temperature 96.9 F L 97.4 F L Pulse Rate 80 79 79 Respiratory Rate 17 18 18 Blood Pressure 120/66 121/74 Pulse Oximetry 100 100 100 Oxygen Delivery Nasal Cannula Oxygen Flow Rate 2 Fraction of Inspired Oxygen 28 05/25/24 23:30 05/26/24 03:58 05/26/24 04:39 Temperature 97.3 F L Pulse Rate 69 Respiratory Rate 16 16 20 Blood Pressure 126/82 Pulse Oximetry 97 95 100 Oxygen Delivery BiPAP BiPAP Oxygen Flow Rate Fraction of Inspired Oxygen 05/26/24 08:08 05/26/24 08:08 05/26/24 08:56 Temperature Pulse Rate 87 87 Respiratory Rate 20 Blood Pressure Pulse Oximetry 98 Oxygen Delivery Nasal Cannula Oxygen Flow Rate 2 Fraction of Inspired Oxygen 28 Intake/Output Intake/Output: Intake & Output 05/23/24 05/24/24 05/25/24 05/26/24 23:59 23:59 23:59 23:59 Intake Total 2270 1770 1070 120 Output Total 2400 2870 1300 200 Balance -130 -1100 -230 -80 Meds/Results Medications: Active Medications Generic Name Dose Route Start Last Admin Trade Name Freq PRN Reason Stop Dose Admin Acetaminophen 650 mg 05/20/24 21:07 05/26/24 08:56 Acetaminophen 325 Mg Tablet PO 650 mg Q4H PRN Administration PAIN RATED 1-3 Albuterol/Ipratropium 3 ml 05/20/24 16:34 05/25/24 09:17 Ipratropium 0.5 Mg/Albuterol Sulfate 2.5 Mg Ampul.Neb 3 Ml NEBULIZE 3 ml Q6HRT PRN Administration Shortness Of Breath Or Wheezing Apixaban 5 mg 05/20/24 21:20 05/26/24 08:53 Apixaban 5 Mg Tablet PO 5 mg Q12HR ALEKSEY Administration Aspirin 81 mg 05/21/24 09:00 05/26/24 08:54 Aspirin 81 Mg Enteric Tablet PO 81 mg DAILY ALEKSEY Administration Baclofen 10 mg 05/20/24 21:10 05/25/24 20:49 Baclofen 10 Mg Tablet BY MOUTH 10 mg HS ALEKSEY Administration Bumetanide 1 mg 05/21/24 09:00 05/26/24 08:57 Bumetanide Inj 1 Mg/4 Ml Vial IV PUSH 1 mg QAM ALEKSEY Administration Dexamethasone 6 mg 05/21/24 08:00 05/26/24 08:54 Dexamethasone 2 Mg Tablet PO 05/30/24 08:01 6 mg DAILY@0800 ALEKSEY Administration Dextrose 12.5 gm 05/20/24 16:33 Dextrose 50% 25 Gm/50 Ml Syringe IV PUSH PRN PRN Hypoglycemia Protocol Doxycycline Hyclate 100 mg 05/21/24 12:00 05/25/24 12:22 Doxycycline Hyclate 100 Mg Tablet PO 100 mg DAILY@1200 ALEKSEY Administration Ferrous Sulfate 325 mg 05/21/24 09:00 05/26/24 08:52 Ferrous Sulfate [address] PO 325 mg DAILY ALEKSEY Administration Fluticasone Propionate 2 spray 05/20/24 21:10 05/26/24 08:57 Fluticasone Propionate 0.05% Na Spr 16 Gm Btl (*Bkc) NASAL 2 spray BID ALEKSEY Administration Fluticasone/Umeclidinium/Vilanterol 1 puff 05/21/24 09:00 05/26/24 08:08 Fluticasone/Umeclidin/Vilanter 100-62.5-25 Mcg Ellipta INHALATION 1 puff DAILY ALEKSEY Administration Folic Acid 0.4 mg 05/21/24 09:00 05/26/24 08:53 Folic Acid 0.4 Mg Tablet PO 0.4 mg DAILY ALEKSEY Administration Gabapentin 300 mg 05/20/24 21:25 05/26/24 08:55 Gabapentin 300 Mg Capsule PO 300 mg BID ALEKSEY Administration Glucagon 1 mg 05/20/24 16:33 Glucagon For Inj 1 Mg Vial IM PRN PRN Hypoglycemia Protocol Glucose 15 gm 05/20/24 16:33 Glucose Oral Gel 15 Gm Of Glucse In 37.5 Gm Tube PO PRN PRN Hypoglycemia Protocol Guaifenesin 1,200 mg 05/24/24 21:00 05/26/24 08:52 Guaifenesin 12 Hr 600 Mg Tabcr PO 1,200 mg Q12HR ALEKSEY Administration Hydrocortisone 1 applic 05/20/24 21:07 Hydrocortisone 1% 30 Gm Cream TOPICAL DAILY PRN itching Dextrose 1,000 mls @ 100 mls/hr 05/20/24 16:33 Dextrose 5% 1,000 Ml IVPB PRN PRN Hypoglycemia Protocol Insulin Aspart 3 - 6 units 05/21/24 12:00 05/26/24 08:45 Insulin Aspart (*Bkc) 100 Units/Ml SUB-Q Not Given TIDWM [facility] Protocol Insulin Aspart 1 - 3 units 05/21/24 21:00 05/25/24 20:50 Insulin Aspart (*Bkc) 100 Units/Ml SUB-Q Not Given HS [facility] Protocol Lactobacillus Acidophilus 1 tablet 05/20/24 21:30 05/26/24 08:54 Acidophilus/Bulgaricus Chewable Tablet PO 1 tablet TID ALEKSEY Administration Lidocaine 1 patch 05/21/24 12:05 05/26/24 08:57 Lidocaine 5% Patch TRANSDERM 1 patch DAILY ALEKSEY Administration Loratadine 10 mg 05/21/24 09:00 05/26/24 08:53 Loratadine 10 Mg Tablet PO 10 mg DAILY ALEKSEY Administration Magnesium Oxide 400 mg 05/20/24 21:30 05/26/24 08:55 Magnesium Oxide 400 Mg Tablet PO 400 mg BID ALEKSEY Administration Metoprolol Succinate 50 mg 05/21/24 09:00 05/26/24 08:56 Metoprolol Succinate Ext Rel 50 Mg Tabcr PO 50 mg DAILY ALEKSEY Administration Miscellaneous Information 0 each 05/21/24 00:01 Diclofenac Gel 3% Is Non-Formulary. We Stock 1% Or Use Pt Own Supply? XX 06/20/24 00:00 CLARIFY ALEKSEY Multi-Ingred Cream/Lotion/Oil/Oint 1 applic 05/21/24 09:00 05/26/24 08:57 Eucerin Cream 120 Gm Jar TOPICAL 1 applic DAILY ALEKSEY Administration Non-Formulary Medication 1 applic 05/20/24 21:07 Diclofenac Sodium TOPICAL ONCE PRN pain Pantoprazole Sodium 40 mg 05/20/24 21:35 05/26/24 08:55 Pantoprazole 40 Mg Tablet PO 40 mg BID ALEKSEY Administration Pyridoxine HCl 100 mg 05/21/24 09:00 05/26/24 08:52 Pyridoxine Hcl 50 Mg Tablet PO 100 mg DAILY ALEKSEY Administration Roflumilast 500 mcg 05/21/24 09:00 05/26/24 08:55 Roflumilast 500 Mcg Tablet PO 500 mcg DAILY ALEKSEY Administration Spironolactone 12.5 mg 05/21/24 09:00 05/26/24 08:55 Spironolactone 12.5 Mg Tablet PO 12.5 mg DAILY ALEKSEY Administration Tamsulosin HCl 0.4 mg 05/20/24 21:35 05/25/24 20:50 Tamsulosin Hcl 0.4 Mg Capsule PO 0.4 mg HS ALEKSEY Administration Triamcinolone Acetonide 1 applic 05/21/24 09:00 05/26/24 08:57 Triamcinolone Acet 0.1% Cream 15 Gm Tube TOPICAL 1 applic DAILY ALEKSEY Administration Vitamin D 1,000 units 05/21/24 09:00 05/26/24 08:54 Cholecalciferol 1,000 Units Tablet PO 1,000 units DAILY ALEKSEY Administration Radiology Results: ITS Impressions Chest X-Ray 05/20/24 12:22 Impression: Probable mild bibasilar pulmonary edema. Labs Labs: Laboratory Results - last 24 hr 05/25/24 05/25/24 05/25/24 12:10 17:12 20:30 WBC RBC Hgb Hct MCV MCH MCHC RDW Plt Count MPV Immature Gran % (Auto) Neut % (Auto) Lymph % (Auto) Dixon % (Auto) Eos % (Auto) Baso % (Auto) Lymph # (Auto) Dixon # (Auto) Eos # (Auto) Baso # (Auto) Abs Immat Gran (auto) Absolute Neuts (auto) Absolute Nucleated RBC Nucleated RBC % % Immature Plt Fraction Sodium Potassium Chloride Carbon Dioxide Anion Gap BUN Creatinine Estim Creat Clear Calc Estimated GFR Glucose POC Capillary Glucose 135 H 134 H 159 H Calcium Total Bilirubin AST ALT Alkaline Phosphatase Total Protein Albumin 05/26/24 05/26/24 04:53 08:05 WBC 9.9 RBC 4.13 L Hgb 11.8 L Hct 37.8 L MCV 91.5 MCH 28.6 MCHC 31.2 L RDW 16.3 H Plt Count 150 MPV 13.7 H Immature Gran % (Auto) 1.9 H Neut % (Auto) 83.8 H Lymph % (Auto) 7.3 L Dixon % (Auto) 6.6 Eos % (Auto) 0.0 Baso % (Auto) 0.4 Lymph # (Auto) 0.72 L Dixon # (Auto) 0.7 H Eos # (Auto) 0.0 Baso # (Auto) 0.0 Abs Immat Gran (auto) 0.19 H Absolute Neuts (auto) 8.3 H Absolute Nucleated RBC 0.000 Nucleated RBC % 0.0 % Immature Plt Fraction 22.1 H Sodium 130 L Potassium 4.4 Chloride 100 Carbon Dioxide 29 Anion Gap 1 L BUN 56 H Creatinine 1.60 H Estim Creat Clear Calc 44 Estimated GFR 42 L Glucose 133 H POC Capillary Glucose 125 H Calcium 9.1 Total Bilirubin 1.0 AST 44 ALT 58 H Alkaline Phosphatase 101 Total Protein 6.0 L Albumin 3.6 Quality VTE Prophylaxis VTE prophylaxis: pharmacologic ordered -Patient's previous records reviewed on admission -ER notes reviewed in detail on admission -discussed all findings and current treatment plan with patient/Family/POA -Consultations reviewed for recommendations -Patient's disposition for safe discharge discussed with dependency case manager Dictation performed by [employer] direct speech recognition software, therefore technical support assistant variants and typographical errors may occur. Hospitalist MIPS Advance Care Plan I have confirmed that the patient's Advanced Care Plan is present, code status i s documented, or surrogate decision maker is listed in patient medical record.: Yes Medication Reconciliation I have utilized all available resources to obtain, update and review the patients current medications (includes all prescriptions, OTC, herbals, cannabis, and nutritional supplements).: Yes The patient is not eligible for med reconciliation; the patient is in a emergent medical situation where delaying treatment would jeopardize the patients health.: No
[2024-05-26] MEDS: IPRATROPIUM 0.5 MG/ALBUTEROL SULFATE 2.5 MG AMPUL.NEB 3 ML NEBULIZE (10:28)
[2024-05-26 12:34] LABS: Glucose Point of Care 153 mg/dl (65-105)
[2024-05-26] MEDS: DOXYCYCLINE HYCLATE 100 MG TABLET PO (12:49)
[2024-05-26 17:10] LABS: Glucose Point of Care 172 mg/dl (65-105)
[2024-05-26] MEDS: TAMSULOSIN HCL 0.4 MG CAPSULE PO (21:03)
[2024-05-26] MEDS: BACLOFEN 10 MG TABLET BY MOUTH (21:03)
[2024-05-26 21:09] LABS: Glucose Point of Care 138 mg/dl (65-105)
[2024-05-27] VITALS (9 sets, daily range): BP systolic 118–128; BP diastolic 66–76; PULSE 68–76; RESP 19–20; TEMP 36.6–36.8; O2SAT 98–100
[2024-05-27 05:57] LABS: Basophils Percent Auto 0.2 % (0.2-1.2); Hematocrit 38.3 % (42.0-52.0); Hemoglobin 12.2 g/dL (14.0-18.0); Immature Granulocyte Percent A 1.7 % (0-0.5); Immature Platelet Fraction Pct 20.1 % (0.9-11.2); Lymphocytes Absolute Auto 0.86 K/mm3 (0.9-3.2); Lymphocytes Percent Auto 7.2 % (18.3-44.2); Mean Corpuscular HGB Conc 31.9 g/dl (32-36); Mean Corpuscular Hemoglobin 29.4 pg (26-34); Mean Corpuscular Volume 92.3 fl (80-100); Neutrophils Absolute Auto 9.9 K/mm3 (1.3-6.7); Neutrophils Percent Auto 82.9 % (45.5-73.1); Platelet Count Result 144 k/mm3 (150-375); Red Blood Count 4.15 M/mm3 (4.6-6.20); Red Cell Distribution Width 16.5 % (11.5-14.5)
[2024-05-27 06:07] LABS: Alanine Aminotransferase 58 U/L (6-50); Albumin Level 3.6 g/dL (3.5-5.1); Alkaline Phosphatase 89 U/L (38-126); Anion Gap 4 mmol/L (4-12); Aspartate Amino Transferase 39 U/L (17-59); Blood Urea Nitrogen 61 mg/dL (9-20); Calcium 9.2 mg/dL (8.4-10.2); Carbon Dioxide 29 mmol/L (22-30); Chloride 99 mmol/L (98-107); Estimated CRCL calculation 39 ml/min; Estimated Glomerular Filt Rate 37; Glucose 122 mg/dL (65-110); Potassium 4.4 mmol/L (3.4-5.0); Sodium 132 mmol/L (137-145)
[2024-05-27] MEDS: FLUTICASONE/UMECLIDIN/VILANTER 100-62.5-25 MCG ELLIPTA 1 PUFF INHALATION (07:34)
--- NOTE | 2024-05-27 08:09 | P.PNIM_ITS ---
Progress Note: A&P Assessment and Plan (1) Acute on chronic respiratory failure with hypoxia and hypercapnia: Code(s): J96.21 - Acute and chronic respiratory failure with hypoxia; J96.22 - Acute and chronic respiratory failure with hypercapnia Status: Acute Assessment and Plan: * respiratory panel positive for COVID-19 * elevated proBNP 15,900-- continue diuresis with Bumex until creatinine is back to baseline * continue to wean O2 for sat greater than 90% * currently on 3 L nasal cannula, baseline is 2L NC at rest * continue DuoNeb breathing treatments * continue doxycycline * was given a loading dose of Solu-Medrol 125 mg IV push in the ED * continue Decadron and remdesivir for the COVID-19, day 3 * respiratory panel was negative for influenza a and B, RSV * [employer] exposure in [place], may be of some significance to his overall health problems 05/24/2024 * weaned back to 2L patient baseline * added Mucinex * added incentive spirometer * Follow-up out/patient with pulmonary No changes back to baseline (2) COVID-19: Code(s): U07.1 - COVID-19 Status: Acute Assessment and Plan: * respiratory panel positive for COVID 19 * continue Decadron and remdesivir as stated above * see above plan of care 05/25/24 * completed remdesivir therapy * Will continue with Decadron until discharge (3) Acute exacerbation of CHF (congestive heart failure): Qualifiers: Heart failure type: diastolic Qualified Code(s): I50.33 - Acute on chronic diastolic (congestive) heart failure Code(s): I50.9 - Heart failure, unspecified Status: Acute Assessment and Plan: * echocardiogram reviewed from 11/04/2023 shown normal LV systolic function with an estimated EF of 60-65%, grade 1 diastolic dysfunction * initial proBNP [id number] * continue metoprolol, spironolactone. Continue IV Bumex for now until creatinine is back to baseline (4) Chronic obstructive pulmonary disease: Qualifiers: COPD type: unspecified COPD Qualified Code(s): J44.9 - Chronic obstructive pulmonary disease, unspecified Code(s): J44.9 - Chronic obstructive pulmonary disease, unspecified Status: Chronic Assessment and Plan: * continue DuoNeb breathing treatments * currently on Decadron 6 mg daily * continue Flonase and Claritin * continue roflumilast (5) Acute kidney injury superimposed on chronic kidney disease: Code(s): N17.9 - Acute kidney failure, unspecified; N18.9 - Chronic kidney disease, unspecified Status: Acute Assessment and Plan: * creatinine currently 1.90, EGFR 35 * baseline creatinine appears to be 1.2-1.3, EGFR 54-59 * continue to diurese with IV Bumex * continue to trend * renally dose medications as needed * avoid testing with IV contrast and nephrotoxic medications 05/24/24 * Improving (6) Diabetes mellitus: Code(s): E11.9 - Type 2 diabetes mellitus without complications Status: Acute Assessment and Plan: * Blood sugars ranging 116-122 * Hgb A1C 6.0 * Accu checks AC/HS * moderate dose SSI ordered * hypoglycemic protocol in place * Diabetic diet ordered * not on any home medications currently, this is a new diagnosis- he will likely need metformin upon discharge as well as a glucometer with accessories * clinical staff educator consult * dietitian consult (7) Thrombocytopenia: Code(s): D69.6 - Thrombocytopenia, unspecified Status: Acute Assessment and Plan: * platelet count 130 today * his platelet count was in normal range back in January of this year * Vitamin B12 459, Folate 19.7 * Likely due to liver cirrhosis 05/24/2024 * 136 Improved (8) Chronic anemia: Code(s): D64.9 - Anemia, unspecified Status: Chronic Assessment and Plan: * hemoglobin 10.8--SORAYA * Continue ferrous sulfate * could be due to chronic kidney disease however is on Eliquis for his AFib * Vitamin B 12 459, Folate 19.7, Iron 29, Ferritin 141 * TSH 0.331, free T4 1.49, total T3 0.71--likely subclinical, defer to primary care doctor at discharge STABLE (9) Benign prostatic hyperplasia with urinary retention: Code(s): N40.1 - Benign prostatic hyperplasia with lower urinary tract symptoms; R33.8 - Other retention of urine Status: Chronic Assessment and Plan: * continue tamsulosin * Currently has umaña catheter in place due to urinary retention * Follows with Dr. Brown * Will consult Urology for further guidance. 05/24/24 * voiding trial (10) Paroxysmal atrial fibrillation: Code(s): I48.0 - Paroxysmal atrial fibrillation Status: Chronic Assessment and Plan: * continue Eliquis and metoprolol (11) Liver cirrhosis secondary to nonalcoholic steatohepatitis (RAYGOZA): Code(s): K75.81 - Nonalcoholic steatohepatitis (RAYGOZA); K74.60 - Unspecified cirrhosis of liver Status: Chronic Assessment and Plan: * continue spironolactone * trend liver enzymes (12) Obstructive sleep apnea treated with BiPAP: Code(s): G47.33 - Obstructive sleep apnea (adult) (pediatric) Status: Chronic Assessment and Plan: * CPAP ordered for night use Plan Code status: Full code per patient DVT prophylaxis: Eliquis Stress ulcer prophylaxis: Protonix 40 daily PT/OT notes: Rehab liberty Disposition: Patient admitted tot medical unit for treatment of acute respiratory failure with hypoxia secondary to COVID. patient still with continued weakness recommendation for rehab. Waiting on insurance auth for rehab plan for [facility] bed Time Spent With Patient Time with patient: 15 - 25 minutes Subjective Date/time seen: 05/27/24 08:09 Interval history: Patient is a 73-year-old male with the unit for acute on chronic respiratory failure with hypoxia secondary to COVID. 05/27/2024: Patient doing well up in chair feeling like he is getting back to his baseline but still with moderate weakness. Denied CP or SOB. Review of Systems Review of Systems: 12 systems were reviewed and are negativ e except for as per HPI. All systems reviewed & are unremarkable except as noted in HPI and below Exam Narrative: General: In no acute distress, well nourished still weak Cardiac: Normal S1 and S2. No murmur, gallops or friction rubs, peripheral pulses intact. Respiratory: Crackles noted in left lung base, productive cough, no other adventitious lung sounds, currently on 2L NC patient baseline Gastrointestinal: soft, non-distended, non-tender, normoactive bowel sounds. : Awaiting 1st void post catheter removal for voiding trial Neuro: Alert and oriented x4 Objective Data Vital Signs Vital Signs: Vital Signs - 24 hr 05/26/24 08:49 05/26/24 08:56 05/26/24 10:29 Temperature Pulse Rate 87 Respiratory Rate Blood Pressure Pulse Oximetry 100 100 Oxygen Delivery Nasal Cannula Nasal Cannula Oxygen Flow Rate 2 2 Fraction of Inspired Oxygen 28 05/26/24 10:29 05/26/24 10:38 05/26/24 14:00 Temperature 97.5 F L Pulse Rate 77 74 74 Respiratory Rate 20 20 19 Blood Pressure 128/72 Pulse Oximetry 100 Oxygen Delivery Oxygen Flow Rate Fraction of Inspired Oxygen 05/26/24 21:00 05/26/24 21:19 05/26/24 23:33 Temperature 97.2 F L Pulse Rate 73 73 Respiratory Rate 22 H 18 22 H Blood Pressure 109/71 Pulse Oximetry 95 100 94 Oxygen Delivery CPAP BiPAP Oxygen Flow Rate Fraction of Inspired Oxygen 05/26/24 23:33 05/27/24 05:01 05/27/24 07:34 Temperature 98.3 F Pulse Rate 76 Respiratory Rate 20 Blood Pressure 125/74 Pulse Oximetry 95 100 98 Oxygen Delivery CPAP Nasal Cannula Oxygen Flow Rate 2 2 Fraction of Inspired Oxygen 05/27/24 07:34 Temperature Pulse Rate 76 Respiratory Rate 20 Blood Pressure Pulse Oximetry Oxygen Delivery Oxygen Flow Rate Fraction of Inspired Oxygen Intake/Output Intake/Output: Intake & Output 05/24/24 05/25/24 05/26/24 05/27/24 23:59 23:59 23:59 23:59 Intake Total 1770 1070 1080 120 Output Total 2870 1300 1300 400 Balance -1100 -230 -220 -280 Meds/Results Medications: Active Medications Generic Name Dose Route Start Last Admin Trade Name Freq PRN Reason Stop Dose Admin Acetaminophen 650 mg 05/20/24 21:07 05/26/24 21:03 Acetaminophen 325 Mg Tablet PO 650 mg Q4H PRN Administration PAIN RATED 1-3 Albuterol/Ipratropium 3 ml 05/20/24 16:34 05/26/24 10:28 Ipratropium 0.5 Mg/Albuterol Sulfate 2.5 Mg Ampul.Neb 3 Ml NEBULIZE 3 ml Q6HRT PRN Administration Shortness Of Breath Or Wheezing Apixaban 5 mg 05/20/24 21:20 05/26/24 21:03 Apixaban 5 Mg Tablet PO 5 mg Q12HR ALEKSEY Administration Aspirin 81 mg 05/21/24 09:00 05/26/24 08:54 Aspirin 81 Mg Enteric Tablet PO 81 mg DAILY ALEKSEY Administration Baclofen 10 mg 05/20/24 21:10 05/26/24 21:03 Baclofen 10 Mg Tablet BY MOUTH 10 mg HS ALEKSEY Administration Bumetanide 1 mg 05/21/24 09:00 05/26/24 08:57 Bumetanide Inj 1 Mg/4 Ml Vial IV PUSH 1 mg QAM ALEKSEY Administration Dexamethasone 6 mg 05/21/24 08:00 05/26/24 08:54 Dexamethasone 2 Mg Tablet PO 05/30/24 08:01 6 mg DAILY@0800 ALEKSEY Administration Dextrose 12.5 gm 05/20/24 16:33 Dextrose 50% 25 Gm/50 Ml Syringe IV PUSH PRN PRN Hypoglycemia Protocol Doxycycline Hyclate 100 mg 05/21/24 12:00 05/26/24 12:49 Doxycycline Hyclate 100 Mg Tablet PO 100 mg DAILY@1200 ALEKSEY Administration Ferrous Sulfate 325 mg 05/21/24 09:00 05/26/24 08:52 Ferrous Sulfate [address] PO 325 mg DAILY ALEKSEY Administration Fluticasone Propionate 2 spray 05/20/24 21:10 05/26/24 17:18 Fluticasone Propionate 0.05% Na Spr 16 Gm Btl (*Bkc) NASAL 2 spray BID ALEKSEY Administration Fluticasone/Umeclidinium/Vilanterol 1 puff 05/21/24 09:00 05/27/24 07:34 Fluticasone/Umeclidin/Vilanter 100-62.5-25 Mcg Ellipta INHALATION 1 puff DAILY ALEKSEY Administration Folic Acid 0.4 mg 05/21/24 09:00 05/26/24 08:53 Folic Acid 0.4 Mg Tablet PO 0.4 mg DAILY ALEKSEY Administration Gabapentin 300 mg 05/20/24 21:25 05/26/24 17:18 Gabapentin 300 Mg Capsule PO 300 mg BID ALEKSEY Administration Glucagon 1 mg 05/20/24 16:33 Glucagon For Inj 1 Mg Vial IM PRN PRN Hypoglycemia Protocol Glucose 15 gm 05/20/24 16:33 Glucose Oral Gel 15 Gm Of Glucse In 37.5 Gm Tube PO PRN PRN Hypoglycemia Protocol Guaifenesin 1,200 mg 05/24/24 21:00 05/26/24 21:03 Guaifenesin 12 Hr 600 Mg Tabcr PO 1,200 mg Q12HR ALEKSEY Administration Hydrocortisone 1 applic 05/20/24 21:07 Hydrocortisone 1% 30 Gm Cream TOPICAL DAILY PRN itching Dextrose 1,000 mls @ 100 mls/hr 05/20/24 16:33 Dextrose 5% 1,000 Ml IVPB PRN PRN Hypoglycemia Protocol Insulin Aspart 3 - 6 units 05/21/24 12:00 05/26/24 17:16 Insulin Aspart (*Bkc) 100 Units/Ml SUB-Q Not Given TIDWM [facility] Protocol Insulin Aspart 1 - 3 units 05/21/24 21:00 05/26/24 21:03 Insulin Aspart (*Bkc) 100 Units/Ml SUB-Q Not Given HS [facility] Protocol Lactobacillus Acidophilus 1 tablet 05/20/24 21:30 05/26/24 17:18 Acidophilus/Bulgaricus Chewable Tablet PO 1 tablet TID ALEKSEY Administration Lidocaine 1 patch 05/21/24 12:05 05/26/24 08:57 Lidocaine 5% Patch TRANSDERM 1 patch DAILY ALEKSEY Administration Loratadine 10 mg 05/21/24 09:00 05/26/24 08:53 Loratadine 10 Mg Tablet PO 10 mg DAILY ALEKSEY Administration Magnesium Oxide 400 mg 05/20/24 21:30 05/26/24 17:18 Magnesium Oxide 400 Mg Tablet PO 400 mg BID ALEKSEY Administration Metoprolol Succinate 50 mg 05/21/24 09:00 05/26/24 08:56 Metoprolol Succinate Ext Rel 50 Mg Tabcr PO 50 mg DAILY ALEKSEY Administration Miscellaneous Information 0 each 05/21/24 00:01 Diclofenac Gel 3% Is Non-Formulary. We Stock 1% Or Use Pt Own Supply? XX 06/20/24 00:00 CLARIFY [facility] Multi-Ingred Cream/Lotion/Oil/Oint 1 applic 05/21/24 09:00 05/26/24 08:57 Eucerin Cream 120 Gm Jar TOPICAL 1 applic DAILY ALEKSEY Administration Non-Formulary Medication 1 applic 05/20/24 21:07 Diclofenac Sodium TOPICAL ONCE PRN pain Pantoprazole Sodium 40 mg 05/20/24 21:35 05/26/24 17:18 Pantoprazole 40 Mg Tablet PO 40 mg BID ALEKSEY Administration Pyridoxine HCl 100 mg 05/21/24 09:00 05/26/24 08:52 Pyridoxine Hcl 50 Mg Tablet PO 100 mg DAILY ALEKSEY Administration Roflumilast 500 mcg 05/21/24 09:00 05/26/24 08:55 Roflumilast 500 Mcg Tablet PO 500 mcg DAILY ALEKSEY Administration Spironolactone 12.5 mg 05/21/24 09:00 05/26/24 08:55 Spironolactone 12.5 Mg Tablet PO 12.5 mg DAILY ALEKSEY Administration Tamsulosin HCl 0.4 mg 05/20/24 21:35 05/26/24 21:03 Tamsulosin Hcl 0.4 Mg Capsule PO 0.4 mg HS ALEKSEY Administration Triamcinolone Acetonide 1 applic 05/21/24 09:00 05/26/24 08:57 Triamcinolone Acet 0.1% Cream 15 Gm Tube TOPICAL 1 applic DAILY ALEKSEY Administration Vitamin D 1,000 units 05/21/24 09:00 05/26/24 08:54 Cholecalciferol 1,000 Units Tablet PO 1,000 units DAILY ALEKSEY Administration Radiology Results: ITS Impressions Chest X-Ray 05/20/24 12:22 Impression: Probable mild bibasilar pulmonary edema. Labs Labs: Laboratory Results - last 24 hr 05/26/24 05/26/24 05/26/24 08:05 12:24 17:03 WBC RBC Hgb Hct MCV MCH MCHC RDW Plt Count MPV Immature Gran % (Auto) Neut % (Auto) Lymph % (Auto) [place] % (Auto) Eos % (Auto) Baso % (Auto) Lymph # (Auto) [place] # (Auto) Eos # (Auto) Baso # (Auto) Abs Immat Gran (auto) Absolute Neuts (auto) Absolute Nucleated RBC Nucleated RBC % % Immature Plt Fraction Sodium Potassium Chloride Carbon Dioxide Anion Gap BUN Creatinine Estim Creat Clear Calc Estimated GFR Glucose POC Capillary Glucose 125 H 153 H 172 H Calcium Total Bilirubin AST ALT Alkaline Phosphatase Total Protein Albumin 05/26/24 05/27/24 05/27/24 20:45 05:04 05:05 WBC 12.0 H RBC 4.15 L Hgb 12.2 L Hct 38.3 L MCV 92.3 MCH 29.4 MCHC 31.9 L RDW 16.5 H Plt Count 144 L MPV TNP Immature Gran % (Auto) 1.7 H Neut % (Auto) 82.9 H Lymph % (Auto) 7.2 L [place] % (Auto) 8.0 Eos % (Auto) 0.0 Baso % (Auto) 0.2 Lymph # (Auto) 0.86 L [place] # (Auto) 1.0 H Eos # (Auto) 0.0 Baso # (Auto) 0.0 Abs Immat Gran (auto) 0.20 H Absolute Neuts (auto) 9.9 H Absolute Nucleated RBC 0.000 Nucleated RBC % 0.0 % Immature Plt Fraction 20.1 H Sodium 132 L Potassium 4.4 Chloride 99 Carbon Dioxide 29 Anion Gap 4 BUN 61 H Creatinine 1.80 H Estim Creat Clear Calc 39 Estimated GFR 37 L Glucose 122 H POC Capillary Glucose 138 H Calcium 9.2 Total Bilirubin 1.0 AST 39 ALT 58 H Alkaline Phosphatase 89 Total Protein 7.0 Albumin 3.6 Quality VTE Prophylaxis VTE prophylaxis: pharmacologic ordered -Patient's previous records reviewed on admission -ER notes reviewed in detail on admission -discussed all findings and current treatment plan with patient/Family/POA -Consultations reviewed for recommendations -Patient's disposition for safe discharge discussed with case management assistant Dictation performed by [employer] direct speech recognition software, therefore java swing developer variants and typographical errors may occur. Hospitalist MIPS Advance Care Plan I have confirmed that the patient's Advanced Care Plan is present, code status is documented, or surrogate decision maker is listed in patient medical record.: Yes Medication Reconciliation I have utilized all available resources to obtain, update and review the patients current medications (includes all prescriptions, OTC, herbals, cannabis, and nutritional supplements).: Yes The patient is not eligible for med reconciliation; the patient is in a emergent medical situation where delaying treatment would jeopardize the patients health.: No
[2024-05-27 08:28] LABS: Glucose Point of Care 113 mg/dl (65-105)
[2024-05-27] MEDS: PYRIDOXINE HCL 50 MG TABLET 100 MG PO (08:28)
[2024-05-27] MEDS: CHOLECALCIFEROL 1,000 UNITS TABLET 1000 UNITS PO (08:29)
[2024-05-27] MEDS: FOLIC ACID 0.4 MG TABLET PO (08:29)
[2024-05-27] MEDS: dexAMETHasone 2 MG TABLET 6 MG PO (08:29)
[2024-05-27] MEDS: ROFLUMILAST 500 MCG TABLET PO (08:29)
[2024-05-27] MEDS: APIXABAN 5 MG TABLET PO ×2 (08:30→21:19)
[2024-05-27] MEDS: GABAPENTIN 300 MG CAPSULE PO ×2 (08:30→17:10)
[2024-05-27] MEDS: guaiFENesin 12 HR 600 MG TABCR 1200 MG PO ×2 (08:30→21:19)
[2024-05-27] MEDS: LORATADINE 10 MG TABLET PO (08:31)
[2024-05-27] MEDS: MAGNESIUM OXIDE 400 MG TABLET PO ×2 (08:31→17:10)
[2024-05-27] MEDS: ASPIRIN 81 MG ENTERIC TABLET PO (08:31)
[2024-05-27] MEDS: ACIDOPHILUS/BULGARICUS CHEWABLE TABLET 1 TABLET PO ×3 (08:31→17:11)
[2024-05-27] MEDS: FERROUS SULFATE 325 MG TABLET DR PO (08:31)
[2024-05-27] MEDS: PANTOPRAZOLE 40 MG TABLET PO ×2 (08:32→17:11)
[2024-05-27] MEDS: SPIRONOLACTONE 12.5 MG TABLET PO (08:32)
[2024-05-27] MEDS: ACETAMINOPHEN 325 MG TABLET 650 MG PO ×2 (08:32→21:19)
[2024-05-27] MEDS: METOPROLOL SUCCINATE EXT REL 50 MG TABCR PO (08:33)
[2024-05-27] MEDS: BUMETANIDE INJ 1 MG/4 ML VIAL IV PUSH (08:33)
[2024-05-27] MEDS: FLUTICASONE PROPIONATE 0.05% NA SPR 16 GM BTL (*BKC) 2 SPRAY NASAL ×2 (08:33→17:11)
[2024-05-27] MEDS: TRIAMCINOLONE ACET 0.1% CREAM 15 GM TUBE 1 APPLIC TOPICAL (08:34)
[2024-05-27] MEDS: EUCERIN CREAM 120 GM JAR 1 APPLIC TOPICAL (08:34)
[2024-05-27] MEDS: IPRATROPIUM 0.5 MG/ALBUTEROL SULFATE 2.5 MG AMPUL.NEB 3 ML NEBULIZE (10:37)
[2024-05-27 12:04] LABS: Glucose Point of Care 233 mg/dl (65-105)
[2024-05-27] MEDS: LIDOCAINE 5% PATCH 1 PATCH TRANSDERM (12:47)
[2024-05-27] MEDS: DOXYCYCLINE HYCLATE 100 MG TABLET PO (12:47)
[2024-05-27 13:09] LABS: Glucose Point of Care 182 mg/dl (65-105)
[2024-05-27 16:58] LABS: Glucose Point of Care 154 mg/dl (65-105)
[2024-05-27 20:49] LABS: Glucose Point of Care 158 mg/dl (65-105)
[2024-05-27] MEDS: TAMSULOSIN HCL 0.4 MG CAPSULE PO (21:19)
[2024-05-27] MEDS: BACLOFEN 10 MG TABLET BY MOUTH (21:19)
[2024-05-28 00:47] VITALS: PULSE 85; RESP 26; O2SAT 94
[2024-05-28 06:00] VITALS: BP 133/83; PULSE 68; RESP 20; TEMP 36.2; O2SAT 100
[2024-05-28 06:08] LABS: Basophils Absolute Auto 0.1 K/mm3 (0.0-0.1); Basophils Percent Auto 0.4 % (0.2-1.2); Eosinophils Percent Auto 0.1 % (0-4.4); Hematocrit 39.9 % (42.0-52.0); Hemoglobin 12.3 g/dL (14.0-18.0); Immature Granulocyte Absolute 0.21 K/mm3 (0.00-0.031); Immature Granulocyte Percent A 1.6 % (0-0.5); Immature Platelet Fraction Pct 22.7 % (0.9-11.2); Lymphocytes Absolute Auto 0.96 K/mm3 (0.9-3.2); Lymphocytes Percent Auto 7.3 % (18.3-44.2); Mean Corpuscular HGB Conc 30.8 g/dl (32-36); Mean Corpuscular Volume 94.1 fl (80-100); Monocytes Absolute Auto 0.9 K/mm3 (0.1-0.6); Monocytes Percent Auto 6.9 % (2.6-8.5); Neutrophils Percent Auto 83.7 % (45.5-73.1); Platelet Count Result 149 k/mm3 (150-375); Red Blood Count 4.24 M/mm3 (4.6-6.20); Red Cell Distribution Width 16.5 % (11.5-14.5); White Blood Count 13.1 K/mm3 (4.5-10.0)
--- NOTE | 2024-05-28 06:30 | PC.NURSE ---
Lab called at 0626 with a critical potassium of 6.2. Lab then called back at 0628 saying the sample was hemolyzed and going to redraw blood from the patient.
[2024-05-28 07:22] LABS: Alanine Aminotransferase 61 U/L (6-50); Albumin Level 3.6 g/dL (3.5-5.1); Alkaline Phosphatase 90 U/L (38-126); Anion Gap 3 mmol/L (4-12); Aspartate Amino Transferase 42 U/L (17-59); Bilirubin,Total 1.1 mg/dL (0.2-1.3); Blood Urea Nitrogen 57 mg/dL (9-20); Calcium 9.3 mg/dL (8.4-10.2); Carbon Dioxide 31 mmol/L (22-30); Chloride 99 mmol/L (98-107); Estimated CRCL calculation 42 ml/min; Estimated Glomerular Filt Rate 39; Glucose 117 mg/dL (65-110); Potassium 4.3 mmol/L (3.4-5.0); Sodium 133 mmol/L (137-145)
[2024-05-28 08:00] VITALS: O2SAT 96
[2024-05-28 08:13] LABS: Glucose Point of Care 102 mg/dl (65-105)
[2024-05-28] MEDS: FLUTICASONE/UMECLIDIN/VILANTER 100-62.5-25 MCG ELLIPTA 1 PUFF INHALATION (09:15)
[2024-05-28] MEDS: IPRATROPIUM 0.5 MG/ALBUTEROL SULFATE 2.5 MG AMPUL.NEB 3 ML NEBULIZE (09:15)
--- NOTE | 2024-05-28 09:50 | P.DS_ITS ---
DS: Admitting Diagnosis Discharge Date 05/28/2024 Admitting Diagnosis Acute on chronic respiratory failure with hypoxia and hypercapnia multifocal COVID-19, COPD and CHF DS: Discharge Diagnosis Discharge Diagnosis (1) Acute on chronic respiratory failure with hypoxia and hypercapnia: Code(s): J96.21 - Acute and chronic respiratory failure with hypoxia; J96.22 - Acute and chronic respiratory failure with hypercapnia Status: Acute Assessment and Plan: * 2L NC supplemental oxygen (2) COVID-19: Code(s): U07.1 - COVID-19 Status: Acute Assessment and Plan: * completed remdesivir therapy * supportive care * Isolation can stop on 05/30 (3) Acute exacerbation of CHF (congestive heart failure): Qualifiers: Heart failure type: diastolic Qualified Code(s): I50.33 - Acute on chronic diastolic (congestive) heart failure Code(s): I50.9 - Heart failure, unspecified Status: Acute Assessment and Plan: * Increased Bumex to 1mg (4) Chronic obstructive pulmonary disease: Qualifiers: COPD type: unspecified COPD Qualified Code(s): J44.9 - Chronic obstructive pulmonary disease, unspecified Code(s): J44.9 - Chronic obstructive pulmonary disease, unspecified Status: Chronic Assessment and Plan: * Supplemental oxygen 2 L NC * continue Flonase and Claritin * continue roflumilast (5) Acute kidney injury superimposed on chronic kidney disease: Code(s): N17.9 - Acute kidney failure, unspecified; N18.9 - Chronic kidney disease, unspecified Status: Acute Assessment and Plan: * Baseline * follow-up with nephrology Outpatient (6) Diabetes mellitus: Code(s): E11.9 - Type 2 diabetes mellitus without complications Status: Acute Assessment and Plan: * Hgb A1C 6.0 * Accu checks AC/HS * moderate dose SSI ordered * hypoglycemic protocol in place * Diabetic diet ordered * will need to start metformin after discharge from swing (7) Thrombocytopenia: Code(s): D69.6 - Thrombocytopenia, unspecified Status: Acute (8) Chronic anemia: Code(s): D64.9 - Anemia, unspecified Status: Chronic Assessment and Plan: STABLE (9) Benign prostatic hyperplasia with urinary retention: Code(s): N40.1 - Benign prostatic hyperplasia with lower urinary tract symptoms; R33.8 - Other retention of urine Status: Chronic Assessment and Plan: * continue Flomax * follow-up with Urology outpatient as scheduled (10) Paroxysmal atrial fibrillation: Code(s): I48.0 - Paroxysmal atrial fibrillation Status: Chronic Assessment and Plan: * continue Eliquis and metoprolol (11) Liver cirrhosis secondary to nonalcoholic steatohepatitis (RAYGOZA): Code(s): K75.81 - Nonalcoholic steatohepatitis (RAYGOZA); K74.60 - Unspecified cirrhosis of liver Status: Chronic Assessment and Plan: * continue spironolactone (12) Obstructive sleep apnea treated with BiPAP: Code(s): G47.33 - Obstructive sleep apnea (adult) (pediatric) Status: Chronic Assessment and Plan: * CPAP ordered for night use Plan Disposition: discharged to swing bed DS: Summary Hospital Course Reason for hospitalization: Acute on chronic respiratory failure with hypoxia and hypercapnia multifocal COVID-19, COPD and CHF Hospital Course: This is a 73-year-old male with multiple medical problems including chronic hypoxic respiratory failure on home oxygen, heart failure with preserved ejection fraction, coronary artery disease, hypertension, atrial fibrillation on chronic anticoagulation, obstructive sleep apnea on BiPAP, ulcerative colitis, cirrhosis, chronic kidney disease, chronic anemia, benign prostatic hyperplasia, diet-controlled diabetes, and other comorbidities who was admitted to the medical unit for further evaluation and treatment of acute on chronic respiratory failure with hypoxia secondary to COVID-19. Patient chronically wears 2 L at home however prior to arrival he was hypoxic and requiring 4 L patient reports he was having generalized weakness productive cough and overall ill feeling. During patient's admission he was treated for COVID-19 with remdesivir and De cadron in bronchodilators until able to wean back to his chronic 2 L oxygen. Patient was also treated for mild CHF exacerbation with IV Lasix but then transitioned back to his oral Lasix at time of discharge stable and back to baseline. patient did have mild PAYTON superimposed CKD creatinine was 1.9 on arrival but improved back to baseline. patient with hyperglycemia A1c 6.0 showing some diabetes he reports he controls it with diet did provide metformin prescriptions if wanted however patient this time would like to follow up with his primary care physician and get a follow-up A1c in 3 months. patient also has thrombocytopenia in anemia but this is secondary to his chronic cirrhosis of the liver. patient did have some urinary retention secondary to his BPH and had a Cabral catheter placed for urinary retention he had been seen by Urology at which time they initiated Flomax and performed voiding trials a few days later at which time patient was able to void and could follow-up with them in their office. patient progressed well however he still had some moderate generalized weakness and was deconditioned due to hospitalization he was seen by PT / OT who recommended [facility] facility for rehabilitation patient initially wanted to go to [facility] however they were not accepting patients due to COVID outbreak however patient did accept admission to [facility] for further physical therapy. patient was then discharged to [facility] seen day of discharge in no acute distress and appeared close to baseline. Status at Discharge Functional status at discharge: uses cane/walker Overall status at discharge: patient is progressing back to baseline Time Spent with Patient Time attestation: Total time spent providing and/or coordinating discharge services: Time spent: Greater than 30 minutes Exam Narrative: General: In no acute distress, well nourished still weak Cardiac: Normal S1 and S2. No murmur, gallops or friction rubs, peripheral pulses intact. Respiratory: Crackles noted in left lung base, productive cough, no other adventitious lung sounds, currently on 2L NC patient baseline Gastrointestinal: soft, non-distended, non-tender, normoactive bowel sounds. : Awaiting 1st void post catheter removal for voiding trial Neuro: Alert and oriented x4 DS: Data Data Completed and Pending Labs on day of discharge: Labs from last 24 hours 05/28/24 05/28/24 05/28/24 07:57 07:01 05:21 WBC 13.1 H RBC 4.24 L Hgb 12.3 L Hct 39.9 L MCV 94.1 MCH 29.0 MCHC 30.8 L RDW 16.5 H Plt Count 149 L MPV TNP Immature Gran % (Auto) 1.6 H Neut % (Auto) 83.7 H Lymph % (Auto) 7.3 L [place] % (Auto) 6.9 Eos % (Auto) 0.1 Baso % (Auto) 0.4 Lymph # (Auto) 0.96 [place] # (Auto) 0.9 H Eos # (Auto) 0.0 Baso # (Auto) 0.1 Abs Immat Gran (auto) 0.21 H Absolute Neuts (auto) 11.0 H Absolute Nucleated RBC 0.000 Nucleated RBC % 0.0 % Immature Plt Fraction 22.7 H Sodium 133 L Potassium 4.3 Chloride 99 Carbon Dioxide 31 H Anion Gap 3 L BUN 57 H Creatinine 1.70 H Estim Creat Clear Calc 42 Estimated GFR 39 L Glucose 117 H POC Capillary Glucose 102 Calcium 9.3 Total Bilirubin 1.1 AST 42 ALT 61 H Alkaline Phosphatase 90 Total Protein 7.0 Albumin 3.6 05/27/24 05/27/24 05/27/24 20:14 16:53 13:06 WBC RBC Hgb Hct MCV MCH MCHC RDW Plt Count MPV Immature Gran % (Auto) Neut % (Auto) Lymph % (Auto) [place] % (Auto) Eos % (Auto) Baso % (Auto) Lymph # (Auto) [place] # (Auto) Eos # (Auto) Baso # (Auto) Abs Immat Gran (auto) Absolute Neuts (auto) Absolute Nucleated RBC Nucleated RBC % % Immature Plt Fraction Sodium Potassium Chloride Carbon Dioxide Anion Gap BUN Creatinine Estim Creat Clear Calc Estimated GFR Glucose POC Capillary Glucose 158 H 154 H 182 H Calcium Total Bilirubin AST ALT Alkaline Phosphatase Total Protein Albumin 05/27/24 11:58 WBC RBC Hgb Hct MCV MCH MCHC RDW Plt Count MPV Immature Gran % (Auto) Neut % (Auto) Lymph % (Auto) [place] % (Auto) Eos % (Auto) Baso % (Auto) Lymph # (Auto) [place] # (Auto) Eos # (Auto) Baso # (Auto) Abs Immat Gran (auto) Absolute Neuts (auto) Absolute Nucleated RBC Nucleated RBC % % Immature Plt Fraction Sodium Potassium Chloride Carbon Dioxide Anion Gap BUN Creatinine Estim Creat Clear Calc Estimated GFR Glucose POC Capillary Glucose 233 H Calcium Total Bilirubin AST ALT Alkaline Phosphatase Total Protein Albumin Discharge Plan Discharge Attending physician on discharge: Sergio Bellamy Consulting providers: Elsa Arce; Moise Valiente; Jannet Myles; Russ Dave; Ivan López Discharging Clinician: Bell Neal Anticipated Discharge Date/Time: 05/28/24 09:42 Patient Disposition: Hospital Swing Bed Discharge Instructions: You are being discharged to [facility] for Further rehabilitation after inpatient stay for acute on chronic respiratory failure with hypoxia secondary to COVID-19 infection. * continue with home oxygen of 2L NC * supportive care for COVID to include acetaminophen for pain and fever stay hydrated and encourage activity as tolerated * you completed your remdesivir x5 days as well as Decadron which is a steroid there were no prescriptions prescribed * I have provided information regarding your diagnosis to this attached discharge summary How can you care for yourself at home? ? Keep track of any new symptoms or changes in your symptoms. ? Rest until you feel better. ? Be safe with medicines. Take your medicines exactly as prescribed. Call your doctor if you think you are having a problem with your medicine. ? Do not drive after taking a prescription pain medicine. ? Ensure to follow-up with primary care physician as indicated and provide updated medication list provided to you at discharge. When should you call for help? Call 911 anytime you think you may need emergency care. For example, call if: ? You passed out (lost consciousness). Call your doctor now or seek immediate medical care if: ? You have new symptoms like fever, difficulty breathing, Chest pain, vomiting, or rash. ? You have new or different pain. ? You are confused and are having trouble thinking clearly. ? Your symptoms are getting worse. Watch closely for changes in your health, and be sure to contact your doctor if: ? You do not get better as expected. Patient Instructions: Antibiotic Form, Apixaban (By mouth), Heart Failure (DC), Using Oxygen at Home (DC), Hypoxia (GEN), COVID-19 (Coronavirus Disease 2019) (DC), COVID-19 and Chronic Health Conditions (DC) Patient Language: Angolan Stand Alone Forms: General Discharge Information Follow-up/Referrals: Moise Valiente MD [Physician] - Keep Reg. Scheduled Appt. (BPH retention) Cleo Funk DO [Primary Care Provider] - 4 Weeks Discharge Medications: New Lactobacillus Ama-Vladimir [Lactinex] 500 mg tablet extended release 24 hr 500 mg PO DAILY Qty: 30 0RF metformin 500 mg tablet extended release 24 hr 500 mg PO DAILY Qty: 30 0RF Continued acetaminophen 325 mg capsule 650 mg PO Q4H PRN (Reason: Pain) cholecalciferol (vitamin D3) 25 mcg (1,000 unit) capsule 25 mcg PO DAILY folic acid 400 mcg tablet 0.4 mg PO DAILY (DME) nebulizer accessories Kit See Rx Instructions .Route Qty: 3 3RF Rx Instructions: As directed Breztri Aerosphere 160-9-4.8 mcg/actuation HFA aerosol inhaler 2 inh INHALATION Q12H Qty: 10.7 11RF aspirin 81 mg tablet,delayed release (DR/EC) 81 mg PO DAILY (DME) Aerochamber MV Spacer See Rx Instructions .Route Qty: 10 0RF Rx Instructions: As directed pyridoxine (vitamin B6) 100 mg tablet 100 mg PO DAILY magnesium oxide 400 mg magnesium capsule 400 mg PO BID metoprolol succinate 50 mg tablet extended release 24 hr 50 mg PO DAILY Qty: 180 0RF omeprazole 40 mg capsule,delayed release(DR/EC) 40 mg PO DAILY benzonatate 200 mg capsule 200 mg PO TID PRN (Reason: cough) mesalamine [Rowasa] 4 gram/60 mL enema 4 g RECTAL PRN PRN (Reason: Diarrhea) Patient Comments: Per patient the patient is using this once a day at nighttime ferrous sulfate 324 mg (65 mg iron) Tablet,Delayed Release (Dr/Ec) 324 mg PO DAILY tamsulosin [Flomax] 0.4 mg Capsule 0.4 mg PO HS cetirizine 10 mg Tablet 10 mg PO DAILY gabapentin 300 mg Capsule 300 mg PO BID spironolactone 25 mg tablet 12.5 mg PO DAILY fluticasone propionate [Allergy Relief (fluticasone)] 50 mcg/actuation [place],Suspension See Rx Instructions .ROUTE .COMPLEX Rx Instructions: 2 SPRAY PER NOSTRIL TWICE A DAY lidocaine [Lidocaine Pain Relief] 4 % adhesive patch,medicated 1 patch topical DAILY PRN (Reason: pain) triamcinolone acetonide 0.1 % cream 1 applic topical DAILY hydrocortisone [Anti-Itch (HC)] 1 % cream 1 applic topical DAILY PRN (Reason: itching) diclofenac sodium 3 % gel 1 applic topical ONCE PRN (Reason: pain) Eucerin Cream 1 applic topical DAILY albuterol sulfate 2.5 mg /3 mL (0.083 %) solution for nebulization 2.5 mg inhalation QID baclofen 10 mg tablet See Rx Instructions .ROUTE .COMPLEX Qty: 90 1RF Dose Instruction: TAKE 1 TABLET (10MG) BY MOUTH EVERY DAY AT BEDTIME Rx Instructions: TAKE 1 TABLET (10MG) BY MOUTH EVERY DAY AT BEDTIME Eliquis 5 mg tablet 5 mg PO BID Qty: 180 1RF Rx Instructions: TAKE 1 TABLET BY MOUTH TWICE A DAY roflumilast [Daliresp] 500 mcg tablet 500 mcg PO DAILY 90 Days Qty: 90 3RF Rx Instructions: TAKE 1 TABLET BY MOUTH EVERY DAY Changed bumetanide 0.5 mg tablet 1 mg PO BID Qty: 30 0RF Discontinued doxycycline hyclate 100 mg Capsule 100 mg PO DAILY Rx Instructions: TAKE A LUNCH Lactobacillus acidophilus Capsule 100 mg PO TID Date of admission: 05/22/24 16:06 Primary Care Provider: Cleo Funk Admitting Provider: Ethan Minor Attending physician on admission: Bell Neal Condition: Stable Quality VTE Prophylaxis VTE prophylaxis: pharmacologic ordered -Patient's previous records reviewed on admission -ER notes reviewed in detail on admission -discussed all findings and current treatment plan with patient/Family/POA -Consultations reviewed for recommendations -Patient's disposition for safe discharge discussed with top case assembler Dictation performed by [employer] direct speech recognition software, therefore freight agent variants and typographical errors may occur. Hospitalist MIPS Heart Failure (Exclusion) Patient has history of Heart Transplant or Left Ventricular Assistive Device?: No IF YES, STOP HERE Heart Failure (Qualifier) Patient has current or prior documentation of LVEF less than or equal to 40%, or mod/servere depressed LVSF?: No IF NO, STOP HERE
[2024-05-28 09:54] VITALS: PULSE 68
[2024-05-28] MEDS: METOPROLOL SUCCINATE EXT REL 50 MG TABCR PO (09:54)
[2024-05-28] MEDS: GABAPENTIN 300 MG CAPSULE PO (09:54)
[2024-05-28] MEDS: APIXABAN 5 MG TABLET PO (09:55)
[2024-05-28] MEDS: FERROUS SULFATE 325 MG TABLET DR PO (09:55)
[2024-05-28] MEDS: ASPIRIN 81 MG ENTERIC TABLET PO (09:55)
[2024-05-28] MEDS: PANTOPRAZOLE 40 MG TABLET PO (09:55)
[2024-05-28] MEDS: PYRIDOXINE HCL 50 MG TABLET 100 MG PO (09:55)
[2024-05-28] MEDS: ROFLUMILAST 500 MCG TABLET PO (09:55)
[2024-05-28] MEDS: dexAMETHasone 2 MG TABLET 6 MG PO (09:55)
[2024-05-28] MEDS: LORATADINE 10 MG TABLET PO (09:56)
[2024-05-28] MEDS: MAGNESIUM OXIDE 400 MG TABLET PO (09:56)
[2024-05-28] MEDS: FLUTICASONE PROPIONATE 0.05% NA SPR 16 GM BTL (*BKC) 2 SPRAY NASAL (09:56)
[2024-05-28] MEDS: FOLIC ACID 0.4 MG TABLET PO (09:56)
[2024-05-28] MEDS: SPIRONOLACTONE 12.5 MG TABLET PO (09:56)
[2024-05-28] MEDS: CHOLECALCIFEROL 1,000 UNITS TABLET 1000 UNITS PO (09:56)
[2024-05-28] MEDS: ACIDOPHILUS/BULGARICUS CHEWABLE TABLET 1 TABLET PO ×2 (09:57→12:48)
[2024-05-28] MEDS: guaiFENesin 12 HR 600 MG TABCR 1200 MG PO (10:00)
[2024-05-28] MEDS: LIDOCAINE 5% PATCH 1 PATCH TRANSDERM (10:03)
[2024-05-28] MEDS: BUMETANIDE INJ 1 MG/4 ML VIAL IV PUSH (10:04)
[2024-05-28] MEDS: TRIAMCINOLONE ACET 0.1% CREAM 15 GM TUBE 1 APPLIC TOPICAL (10:10)
[2024-05-28] MEDS: EUCERIN CREAM 120 GM JAR 1 APPLIC TOPICAL (10:11)
[2024-05-28 12:18] LABS: Glucose Point of Care 174 mg/dl (65-105)
[2024-05-28] MEDS: DOXYCYCLINE HYCLATE 100 MG TABLET PO (12:48)
== END 2024-05-28 14:35 | disposition swing bed (61) | DRG 177 ==
LOC: ANHED 11:44 → ANH2MED 15:24
PROVIDERS: Nurse Practitioner Acute Care; Physician Assistant; Admitting Provider Internal Medicine; Emergency Provider Emergency Medicine; PCP Family Medicine; Visit Provider Nurse Practitioner Family
DX: U07.1 COVID-19 (principal); I50.33 Acute on chronic diastolic (congestive) heart failure; J96.21 Acute and chronic respiratory failure with hypoxia; J96.22 Acute and chronic respiratory failure with hypercapnia; K51.90 Ulcerative colitis, unspecified, without complications; N17.9 Acute kidney failure, unspecified; I13.0 Hypertensive heart and chronic kidney disease with heart failure and stage 1 through stage 4 chronic kidney disease, or unspecified chronic kidney disease; D69.6 Thrombocytopenia, unspecified; D50.9 Iron deficiency anemia, unspecified; E66.9 Obesity, unspecified; E11.22 Type 2 diabetes mellitus with diabetic chronic kidney disease; G47.33 Obstructive sleep apnea (adult) (pediatric); I25.10 Atherosclerotic heart disease of native coronary artery without angina pectoris; I48.0 Paroxysmal atrial fibrillation; J44.9 Chronic obstructive pulmonary disease, unspecified; R33.8 Other retention of urine; K75.81 Nonalcoholic steatohepatitis (NASH); K21.9 Gastro-esophageal reflux disease without esophagitis; N40.1 Benign prostatic hyperplasia with lower urinary tract symptoms; N18.30 Chronic kidney disease, stage 3 unspecified; Z99.81 Dependence on supplemental oxygen; Z96.643 Presence of artificial hip joint, bilateral; Z99.89 Dependence on other enabling machines and devices; Z79.01 Long term (current) use of anticoagulants; Z79.82 Long term (current) use of aspirin; Z79.84 Long term (current) use of oral hypoglycemic drugs; Z88.0 Allergy status to penicillin; Z86.718 Personal history of other venous thrombosis and embolism; Z68.31 Body mass index [BMI] 31.0-31.9, adult
CPT/HCPCS: 36415; 71046; 80053; 80076; 82248; 82607; 82728; 82746; 82948; 83036; 83540; 83550; 83615; 83735; 83880; 84439; 84443; 84480; 84484; 85025; 85055; 85610; 85730; 86140; 87637; 93005; 94640; 96365; 96366; 96375; 96376; 97110; 97162; 97166; 97530; 97535; 99285; A9270; G0378; J0248; J1815; J1939; J2919; J8540

== ENCOUNTER 2024-05-28 15:14 | Inpatient (IN) | payer MEDICARE, SELFPAY ==
[2024-05-28 15:20] VITALS: BMI 31.3
--- NOTE | 2024-05-28 15:20 | ADMGEN ---
This patient, Mason Keys, was admitted to 2nd Floor Room 205-1. Patient/family oriented to hospital policies and general routines including ID bracelet, bed and alarms, visiting hours, pain management, procedures, bathroom and other care routines, personal items, smoking policy, room service/diet, and visiting hours. Information on how to activate the Rapid Response Team has been discussed. Patient/Family are encouraged to report perceived risks to care and to ask questions if they do not understand what they are told or what they should do.
[2024-05-28 15:30] VITALS: O2SAT 100
[2024-05-28 16:00] VITALS: BP 127/54; PULSE 78; PULSE 80; RESP 20; TEMP 36.6; O2SAT 100
[2024-05-28 17:36] VITALS: PULSE 80; RESP 20; O2SAT 100
[2024-05-28] MEDS: ACIDOPHILUS/BULGARICUS CHEWABLE TABLET 1 TABLET PO ×2 (17:52→21:05)
[2024-05-28] MEDS: ALBUTEROL SULFATE NEB 2.5 MG/3 ML INH INHALATION (21:03)
[2024-05-28] MEDS: FAMOTIDINE 20 MG TABLET PO (21:03)
[2024-05-28] MEDS: FLUTICASONE PROPIONATE 0.05% NA SPR 16 GM BTL (*BKC) 2 SPRAY NASAL (21:04)
[2024-05-28] MEDS: APIXABAN 2.5 MG TABLET 5 MG BY MOUTH (21:04)
[2024-05-28] MEDS: BACLOFEN 10 MG TABLET PO (21:05)
[2024-05-28] MEDS: TAMSULOSIN HCL 0.4 MG CAPSULE PO (21:05)
[2024-05-28] MEDS: LORATADINE 10 MG TABLET PO (21:05)
[2024-05-28] MEDS: ACETAMINOPHEN 325 MG TABLET 650 MG PO (22:50)
[2024-05-29] VITALS (13 sets, daily range): BP systolic 110–140; BP diastolic 70–77; PULSE 70–88; RESP 16–20; TEMP 35.9–36.6; O2SAT 97–100
[2024-05-29] MEDS: ALBUTEROL SULFATE NEB 2.5 MG/3 ML INH INHALATION ×4 (06:22→20:45)
[2024-05-29] MEDS: APIXABAN 2.5 MG TABLET 5 MG BY MOUTH ×2 (08:27→20:44)
[2024-05-29] MEDS: CHOLECALCIFEROL 1,000 UNITS TABLET 1000 UNITS PO (08:28)
[2024-05-29] MEDS: FERROUS SULFATE 325 MG TABLET DR 324 MG BY MOUTH (08:28)
[2024-05-29] MEDS: FOLIC ACID 0.4 MG TABLET PO (08:28)
[2024-05-29] MEDS: SPIRONOLACTONE 12.5 MG TABLET PO (08:28)
[2024-05-29] MEDS: ASPIRIN 81 MG ENTERIC TABLET PO (08:28)
[2024-05-29] MEDS: MAGNESIUM OXIDE 400 MG TABLET PO ×2 (08:29→17:34)
[2024-05-29] MEDS: FLUTICASONE PROPIONATE 0.05% NA SPR 16 GM BTL (*BKC) 2 SPRAY NASAL ×2 (08:29→20:44)
[2024-05-29] MEDS: METOPROLOL SUCCINATE EXT REL 50 MG TABCR PO (08:29)
[2024-05-29] MEDS: FAMOTIDINE 20 MG TABLET PO ×2 (08:29→20:44)
[2024-05-29] MEDS: GABAPENTIN 300 MG CAPSULE PO ×2 (08:29→17:34)
[2024-05-29] MEDS: BUMETANIDE 1 MG TABLET PO ×2 (08:29→17:34)
[2024-05-29] MEDS: ACIDOPHILUS/BULGARICUS CHEWABLE TABLET 1 TABLET PO ×4 (08:29→20:44)
[2024-05-29] MEDS: TRIAMCINOLONE ACET 0.1% CREAM 15 GM TUBE 1 APPLIC TOPICAL (08:30)
[2024-05-29] MEDS: EUCERIN CREAM 120 GM JAR 1 APPLIC TOPICAL (08:33)
[2024-05-29] MEDS: [UNRECOGNIZED DRUG - REMARK] 1 EACH XX (08:39)
[2024-05-29] MEDS: LIDOCAINE 5% PATCH 1 PATCH TRANSDERM (08:40)
[2024-05-29] MEDS: FLUTICASONE/UMECLIDIN/VILANTER 100-62.5-25 MCG ELLIPTA 1 PUFF INHALATION (08:43)
--- NOTE | 2024-05-29 09:05 | P.HP_ITS ---
H&P: HPI History of Present Illness Date/Time: 05/29/24 09:05 Chief Complaint: rehabilitation post hospitalization for acute on chronicrespiratory failure with hypoxia secondary to COVID-19 Narrative: Patient is a 73-year-old male who was admitted to [facility] for continued rehabilitation due to generalized weakness secondary to recent hospitalization from acute on chronic respiratory failure with hypoxia secondary to COVID-19, COPD exacerbation, and CHF exacerbation. patient does have a history of COPD, cirrhosis of the liver nonalcoholic, CHF, anemia, CVA, BPH, VALENTINA, CKD, and AFib. patient continued to improve over at [facility] with treatment of COVID-19 and was then weaned to his chronic oxygen use of 2 L nasal cannula after treatment with remdesivir, Decadron, IV Lasix, and bronchodilators. patient was seen by Physical and Occupational therapy who recommended continued physical and occupational therapy due to deconditioned state and generalized weakness. Initially patient was wanting to go to [facility] however they are not accepting any new COVID patient's. Patient is currently no longer on isolation for COVID and completed all treatment. patient denied any chest pain, shortness a breath, nausea, vomiting, dizziness, abdominal pain, difficulty urinating or defecating. of note he also had some urinary retention while admitted over at [place] he was seen by Urology appeared to be secondary to BPH and was started on Flomax was able to perform bladder trials and remove Cabral catheter he can follow-up with Urology on outpatient basis. 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 On long-term doxycycline. Chronic venous stasis dermatitis of both lower extremities Duodenal ulcer Iron (Fe) deficiency anemia Chronic anticoagulation Deep venous thrombosis Cerebrovascular accident Gastroesophageal reflux disease Chronic obstructive pulmonary disease Benign prostatic hyperplasia Obstructive sleep apnea treated with BiPAP with bleed in oxygen of 2 L Paroxysmal atrial fibrillation Obesity (BMI 30-39.9) Eczema Chronic kidney disease Chronic diastolic heart failure Echocardiogram 10/2023 demonstrated EF of 60-65% grade 1 diastolic dysfunction, atrial fibrillation, by atrial enlargement difficult study Pneumothorax on left Surgical History Surgical History History of cataract extraction with lens replacement History of bilateral hip replacements History of colonoscopy with polypectomy History of tracheostomy Status post excision of lipoma Neck. History of back surgery History of revision of total replacement of hip joint Family History Family History Mother Family history of cardiovascular disease Family history of coronary artery disease Father Family history of liver disease Sibling Hypertension Cerebrovascular accident Chronic obstructive pulmonary disease Social History Social History Social History: Surrogate medical decision maker: Trinity Keys (Cathy), spouse. Code status: Full code. Smoking packs per day: 1 Smoking cigarettes per day: 20.0 Years smoked: 7 Smoking pack-years: 7.00 Smoking status: Former smoker Tobacco type: cigarettes Smokeless tobacco user: chewing tobacco Smoking end date: 06/06/81 Additional smoking assessment comments: He quit smoking when he was told he had COPD. Alcohol intake: never Substance use: never Substance use type: does not use Do You Feel Safe in your Home?: Yes Lack of Transportation: No Lack of Food: Never True Current Housing: I Have Housing Concerned About Future Housing: No Difficulty Paying Gas/Electric Bills: No Difficulty Paying for Meds: No Currently Unemployed: No Education: Bachelor's Degree Difficulty w/ Childcare or Family Care: No Living arrangements: with family Additional living arrangements comments: Lives with spouse in [place]. They have been since 1973. They have a daughter and a son. Occupation/Education: retired Additional occupation/education comments: Retired from [employer]. [place] [employer] . Spiritual care concerns: No Agree to blood products: Yes Meds Home Medications and Allergies Home Medications ?Medication ?Instructions ?Recorded ?Confirmed ?Type ferrous sulfate 324 mg (65 mg 324 mg PO DAILY 04/05/19 05/28/24 History iron) tablet,delayed release tamsulosin 0.4 mg capsule (Flomax) 0.4 mg PO HS 04/05/19 05/28/24 History aspirin 81 mg tablet,delayed 81 mg PO DAILY 05/21/19 05/28/24 History release cetirizine 10 mg tablet 10 mg PO DAILY 08/04/19 05/28/24 History acetaminophen 325 mg capsule 650 mg PO Q4H PRN Pain 03/17/20 05/28/24 History inhalational spacing device #10 ea 11/17/20 05/28/24 Rx (Aerochamber MV spacer) magnesium oxide 400 mg PO BID 03/04/21 05/28/24 History pyridoxine (vitamin B6) 100 mg 100 mg PO DAILY 03/04/21 05/28/24 History tablet cholecalciferol (vitamin D3) 25 25 mcg PO DAILY 03/03/23 05/28/24 History mcg (1,000 unit) capsule folic acid 400 mcg tablet 0.4 mg PO DAILY 08/23/23 05/28/24 History nebulizer accessories #3 ea 08/23/23 05/28/24 Rx baclofen 10 mg tablet See Rx Instructions .Route 11/11/23 05/28/24 Rx .COMPLEX #90 tabs metoprolol succinate 50 mg 50 mg PO DAILY #180 tabs 12/05/23 05/28/24 Rx tablet,extended release 24 hr omeprazole 40 mg capsule,delayed 40 mg PO DAILY 12/27/23 05/28/24 History release Breztri Aerosphere 160 2 inh inhalation Q12H #10.7 grams 01/18/24 05/28/24 Rx mcg-9mcg-4.8mcg/actuation HFA aerosol inhaler (tgyrfzljxo-[id number]) fluticasone propionate 50 See Rx Instructions .Route .COMPLEX 01/19/24 05/28/24 History mcg/actuation nasal spray,suspension (Allergy Relief (fluticasone)) gabapentin 300 mg capsule 300 mg PO BID 01/19/24 05/28/24 History spironolactone 25 mg tablet 12.5 mg PO DAILY 01/19/24 05/28/24 History mesalamine 4 gram/60 mL enema 4 g RECTAL PRN PRN Diarrhea 02/15/24 05/28/24 History (Rowasa) apixaban 5 mg tablet (Eliquis) 5 mg PO BID #180 tabs 04/09/24 05/28/24 Rx roflumilast 500 mcg tablet 500 mcg PO DAILY 90 days #90 tabs 04/09/24 05/28/24 Rx (Daliresp) benzonatate 200 mg capsule 200 mg PO TID PRN cough 05/14/24 05/28/24 History albuterol sulfate 2.5 mg/3 mL 2.5 mg inhalation QID shortness of 05/20/24 05/28/24 History (0.083 %) solution for nebulization breath or wheezing diclofenac sodium 3 % topical gel 1 applic topical ONCE PRN pain 05/20/24 05/28/24 History hydrocortisone 1 % topical cream 1 applic topical DAILY PRN itching 05/20/24 05/28/24 History (Anti-Itch (hydrocortisone)) lanolin alcohols-mineral 1 applic topical DAILY 05/20/24 05/28/24 History oil-w.petrolatum-ceresin topical cream (Eucerin topical cream) lidocaine 4 % topical patch 1 patch topical DAILY PRN pain 05/20/24 05/28/24 History (Lidocaine Pain Relief) triamcinolone acetonide 0.1 % 1 applic topical DAILY 05/20/24 05/28/24 History topical cream bumetanide 0.5 mg tablet 1 mg (2 x 0.5 mg) PO BID #30 tabs 05/28/24 05/28/24 Rx metformin 500 mg tablet,extended 500 mg PO DAILY #30 tabs 05/28/24 05/28/24 Rx release 24 hr metformin 500 mg tablet,extended 500 mg PO DAILY #30 tabs 05/28/24 05/28/24 Rx release 24 hr Allergies Allergy/AdvReac Type Severity Reaction Status Date / Time clindamycin Allergy Intermediate Rash Verified 05/14/24 15:38 levofloxacin Allergy Intermediate Swelling Verified 05/14/24 15:38 of the Eye Penicillins Allergy Intermediate Hives Verified 05/14/24 15:38 scopolamine Allergy Mild Hallucinati Verified 05/14/24 15:38 ng tobramycin Allergy Mild EYE REDNESS Verified 05/14/24 15:38 pepper (genus Capsicum) AdvReac Intermediate Nausea and Verified 05/14/24 15:38 Vomiting dust mites Allergy Swelling Uncoded 04/19/24 07:06 cats AdvReac Mild REDNESS OF Uncoded 04/19/24 07:06 THE EYES/WATERING Vital Signs Vital Signs - 24 hr 05/28/24 16:00 05/28/24 16:00 05/28/24 17:36 Temperature 98 F Pulse Rate 78 80 80 Respiratory Rate 20 20 20 Blood Pressure 127/54 L Pulse Oximetry 100 100 100 Oxygen Delivery Nasal Cannula Nasal Cannula Nasal Cannula Oxygen Flow Rate 2 2 2 05/29/24 00:00 05/29/24 06:20 05/29/24 06:45 Temperature 97.9 F Pulse Rate 70 72 88 Respiratory Rate 20 20 20 Blood Pressure 110/70 Pulse Oximetry 100 100 100 Oxygen Delivery Nasal Cannula Oxygen Flow Rate 2 2 2 05/29/24 08:00 05/29/24 08:29 Temperature 97.7 F Pulse Rate 78 78 Respiratory Rate 16 Blood Pressure 140/77 Pulse Oximetry 100 Oxygen Delivery Nasal Cannula Oxygen Flow Rate 2 Exam Narrative: * GENERAL: Alert and oriented x 3. pleasant male in No acute distress. * EYES: EOMI. No scleral icterus. PERRLA. * HEENT: Moist mucous membranes. * LUNGS: diminished throughout on auscultation bilaterally. No accessory muscle use. on 2 L supplemental oxygen chronically * CARDIOVASCULAR: Regular rate and rhythm. No murmur. No JVD. S1-S2 * ABDOMEN: Soft, non tenderness and non-distended. No palpable masses. * EXTREMITIES: No edema. Non-tender * SKIN: No rashes or lesions. Skin warm, dry. * NEUROLOGIC: No focal neurological deficits. CN II-XII grossly intact * PSYCHIATRIC: Appropriate mood and affect. Good judgement and insight. Assessment and Plan Assessment and plan (1) Physical deconditioning: Code(s): R53.81 - Other malaise Status: Acute Assessment and Plan: post hospitalization for acute respiratory failure with hypoxia secondary to COVID-19 * PT/OT * up in chair with all meals (2) COPD (chronic obstructive pulmonary disease): Code(s): J44.9 - Chronic obstructive pulmonary disease, unspecified Status: Acute Assessment and Plan: * stable * resumed albuterol as needed * on 2 L nasal cannula chronically (3) Chronic kidney disease: Qualifiers: Chronic kidney disease stage: stage 3 (moderate) Qualified Code(s): N18.3 - Chronic kidney disease, stage 3 (moderate) Code(s): N18.9 - Chronic kidney disease, unspecified Status: Acute Assessment and Plan: * stable * avoid nephrotoxic medications * monitor renal function (4) Chronic diastolic heart failure: Code(s): I50.32 - Chronic diastolic (congestive) heart failure Status: Chronic Assessment and Plan: * does not appear in exacerbation * resume patient's p.o. RIVKA Dutta Eliquis (5) Paroxysmal atrial fibrillation: Code(s): I48.0 - Paroxysmal atrial fibrillation Status: Chronic Assessment and Plan: * Resumed amado (6) Chronic hypoxemic respiratory failure: Code(s): J96.11 - Chronic respiratory failure with hypoxia Status: Chronic Assessment and Plan: * continue 2L supplemental oxygen (7) Liver cirrhosis secondary to nonalcoholic steatohepatitis (RAYGOZA): Code(s): K75.81 - Nonalcoholic steatohepatitis (RAYGOZA); K74.60 - Unspecified cirrhosis of liver Status: Chronic Assessment and Plan: * Stable * Monitor liver enzymes PRN Plan Code status: Full code per patient DVT prophylaxis: Eliquis Stress ulcer prophylaxis: Pepcid PT/OT notes: swing bed Disposition: patient admitted to the [facility] swing bed for continued rehabilitation for generalized weakness and deconditioned state plan will be to progress so patient can return home with . Quality VTE Prophylaxis VTE prophylaxis: pharmacologic ordered -Patient's previous records reviewed on admission -ER notes reviewed in detail on admission -discussed all findings and current treatment plan with patient/Family/POA -Consultations reviewed for recommendations -Patient's disposition for safe discharge discussed with caseworker Dictation performed by [employer] direct speech recognition software, therefore car rental agent variants and typographical errors may occur. Hospitalist MIPS Advance Care Plan I have confirmed that the patient's Advanced Care Plan is present, code status is documented, or surrogate decision maker is listed in patient medical record.: Yes Medication Reconciliation I have utilized all available resources to obtain, update and review the patients current medications (includes all prescriptions, OTC, herbals, cannabis, and nutritional supplements).: Yes The patient is not eligible for med reconciliation; the patient is in a emergent medical situation where delaying treatment would jeopardize the patients health.: No
[2024-05-29] MEDS: ROFLUMILAST 500 MCG PO (12:18)
[2024-05-29] MEDS: [UNRECOGNIZED DRUG - OTHER] PO (12:18)
[2024-05-29] MEDS: TAMSULOSIN HCL 0.4 MG CAPSULE PO (20:44)
[2024-05-29] MEDS: BACLOFEN 10 MG TABLET PO (20:44)
[2024-05-29] MEDS: LORATADINE 10 MG TABLET PO (20:45)
[2024-05-30] VITALS (9 sets, daily range): BP systolic 96–129; BP diastolic 53–68; PULSE 70–94; RESP 17–20; TEMP 36.4–36.8; O2SAT 97–100
[2024-05-30] MEDS: ALBUTEROL SULFATE NEB 2.5 MG/3 ML INH INHALATION ×4 (06:37→20:47)
[2024-05-30] MEDS: LIDOCAINE 5% PATCH 1 PATCH TRANSDERM (09:18)
[2024-05-30] MEDS: [UNRECOGNIZED DRUG - OTHER] PO (09:19)
[2024-05-30] MEDS: ROFLUMILAST 500 MCG PO (09:19)
[2024-05-30] MEDS: FLUTICASONE PROPIONATE 0.05% NA SPR 16 GM BTL (*BKC) 2 SPRAY NASAL ×2 (09:19→20:47)
[2024-05-30] MEDS: BUMETANIDE 1 MG TABLET PO ×2 (09:20→17:38)
[2024-05-30] MEDS: CHOLECALCIFEROL 1,000 UNITS TABLET 1000 UNITS PO (09:20)
[2024-05-30] MEDS: SPIRONOLACTONE 12.5 MG TABLET PO (09:20)
[2024-05-30] MEDS: GABAPENTIN 300 MG CAPSULE PO ×2 (09:20→17:38)
[2024-05-30] MEDS: ACIDOPHILUS/BULGARICUS CHEWABLE TABLET 1 TABLET PO ×4 (09:20→20:48)
[2024-05-30] MEDS: FAMOTIDINE 20 MG TABLET PO ×2 (09:21→20:48)
[2024-05-30] MEDS: FERROUS SULFATE 325 MG TABLET DR 324 MG BY MOUTH (09:21)
[2024-05-30] MEDS: FOLIC ACID 0.4 MG TABLET PO (09:21)
[2024-05-30] MEDS: APIXABAN 2.5 MG TABLET 5 MG BY MOUTH ×2 (09:21→20:48)
[2024-05-30] MEDS: METOPROLOL SUCCINATE EXT REL 50 MG TABCR PO (09:22)
[2024-05-30] MEDS: MAGNESIUM OXIDE 400 MG TABLET PO ×2 (09:22→17:38)
[2024-05-30] MEDS: ASPIRIN 81 MG ENTERIC TABLET PO (09:22)
[2024-05-30] MEDS: FLUTICASONE/UMECLIDIN/VILANTER 100-62.5-25 MCG ELLIPTA 1 PUFF INHALATION (09:36)
[2024-05-30] MEDS: BACLOFEN 10 MG TABLET PO (20:48)
[2024-05-30] MEDS: TAMSULOSIN HCL 0.4 MG CAPSULE PO (20:48)
[2024-05-30] MEDS: ACETAMINOPHEN 325 MG TABLET 650 MG PO (20:48)
[2024-05-30] MEDS: LORATADINE 10 MG TABLET PO (20:48)
[2024-05-31] VITALS (15 sets, daily range): BP systolic 108–111; BP diastolic 54–62; PULSE 80–95; RESP 18–20; TEMP 36.2–36.7; O2SAT 97–100
[2024-05-31] MEDS: ALBUTEROL SULFATE NEB 2.5 MG/3 ML INH INHALATION ×4 (07:54→20:15)
--- NOTE | 2024-05-31 09:33 | P.PNIM_ITS ---
Progress Note: A&P Assessment and Plan (1) Physical deconditioning: Code(s): R53.81 - Other malaise Status: Acute Assessment and Plan: post hospitalization for acute respiratory failure with hypoxia secondary to COVID-19, he is currently COVID recovered * PT/OT * up in chair with all meals * Has multi-level home with stairs, will need to incorporate stair training with his PT (2) COPD (chronic obstructive pulmonary disease): Code(s): J44.9 - Chronic obstructive pulmonary disease, unspecified Status: Acute Assessment and Plan: * stable * resumed albuterol as needed * on 2 L nasal cannula chronically (3) Chronic kidney disease: Qualifiers: Chronic kidney disease stage: stage 3 (moderate) Qualified Code(s): N18.3 - Chronic kidney disease, stage 3 (moderate) Code(s): N18.9 - Chronic kidney disease, unspecified Status: Acute Assessment and Plan: * creatinine 2.11 * baseline 1.2-1.3 * Hold spironolactone and Lasix, will continue to trend. * avoid nephrotoxic medications * monitor renal function (4) Acute kidney injury: Code(s): N17.9 - Acute kidney failure, unspecified Status: Resolved Assessment and Plan: * creatinine 2.11 today * baseline 1.2-1.3 * hold spironolactone and Lasix, will continue to trend (5) Chronic diastolic heart failure: Code(s): I50.32 - Chronic diastolic (congestive) heart failure Status: Chronic Assessment and Plan: * Last echo reviewed and shown normal EF with grade I diastolic dysfunction * does not appear in exacerbation * continue Amado TINEO * Hold spironolactone and Lasix due to PAYTON (6) Paroxysmal atrial fibrillation: Code(s): I48.0 - Paroxysmal atrial fibrillation Status: Chronic Assessment and Plan: * Resumed amado (7) Chronic hypoxemic respiratory failure: Code(s): J96.11 - Chronic respiratory failure with hypoxia Status: Chronic Assessment and Plan: * continue 2L supplemental oxygen-- baseline oxygen requirement (8) Liver cirrhosis secondary to nonalcoholic steatohepatitis (RAYGOZA): Code(s): K75.81 - Nonalcoholic steatohepatitis (RAYGOZA); K74.60 - Unspecified cirrhosis of liver Status: Chronic Assessment and Plan: * Stable * Monitor liver enzymes PRN (9) Thrombocytopenia: Code(s): D69.6 - Thrombocytopenia, unspecified Status: Acute Assessment and Plan: * initial platelet was 149 now up to 155 * resolved Plan Time Spent With Patient Time with patient: Greater than 35 minutes Subjective Date/time seen: 05/31/24 09:33 Interval history: Interval history: This is a 73-year-old male who presented to [facility] for rehabilitation after recent hospitalization for acute on chronic respiratory failure with hypoxia secondary to COVID-19, COPD exacerbation, CHF exacerbation. he finished a full course of remdesivir, Decadron, IV Lasix, and bronchodilators. He is COVID recovered at this time. During his hospitalization he did have some urinary retention and was seen by Urology who started him on Flomax for BPH. He did have a bladder trial and of Cabral catheter was removed. Patient's last set of labs showed a white blood cell count of 13.1, hemoglobin 12.3, platelet count 149, sodium 133, creatinine 1.70, blood sugar ranging 102-174, ALT was 61, last hemoglobin A1c was 6.0. Patient is refusing Accu-Cheks and sliding scale and he is unsure if he wants to take metformin. He will discuss this with his primary care physician once he is discharged. Subjective: Patient denies any fever, chills, nausea, vomiting, diarrhea, abdominal pain, chest pain, shortness a breath. He denies any new complaints today. He is currently on 2 L nasal cannula which is his baseline oxygen requirement. Labs and EMR reviewed. Review of Systems Review of Systems: All systems reviewed & are unremarkable except as noted in HPI and below Exam Narrative: General: In no acute distress, well nourished Head: atraumatic, no encephalopathy Eyes: PERRLA, sclera clear ENT: moist mucous membranes, nasal passages clear Neck: supple, no JVD, no adenopathy, trachea midline Cardiac: Normal S1 and S2. RRR, No murmur, gallops or friction rubs, peripheral pulses intact. Respiratory: Lungs clear to auscultation, no adventitious lung sounds, currently on 2L NC Gastrointestinal: soft, non-distended, non-tender, normoactive bowel sounds. : voiding without difficulty. Extremities: moves all extremities well Skin: clean, dry, intact. No wounds or lesions. Neuro: Alert and oriented x4, cranial nerves intact, no neuro deficits. Psych: normal mood, normal affect, interactive Objective Data Vital Signs Vital Signs: Vital Signs - 24 hr 05/30/24 16:00 05/30/24 20:10 05/30/24 20:10 Temperature 97.6 F 98.3 F Pulse Rate 70 94 94 Respiratory Rate 17 20 20 Blood Pressure 120/68 96/53 L Pulse Oximetry 100 99 99 Oxygen Delivery Nasal Cannula Nasal Cannula Nasal Cannula Oxygen Flow Rate 2 2 2 05/30/24 20:15 05/30/24 21:01 05/31/24 00:00 Temperature 98.0 F Pulse Rate 94 89 90 Respiratory Rate 20 18 20 Blood Pressure 108/54 L Pulse Oximetry 99 99 98 Oxygen Delivery Nasal Cannula Oxygen Flow Rate 2 2 2 05/31/24 07:59 05/31/24 07:59 05/31/24 08:00 Temperature 97.2 F L Pulse Rate 95 82 Respiratory Rate 20 18 Blood Pressure 111/62 Pulse Oximetry 97 97 100 Oxygen Delivery Nasal Cannula Nasal Cannula Oxygen Flow Rate 2 2 2 05/31/24 08:00 05/31/24 08:07 Temperature Pulse Rate 82 88 Respiratory Rate 18 20 Blood Pressure Pulse Oximetry 100 Oxygen Delivery Nasal Cannula Oxygen Flow Rate 2 Intake/Output Intake/Output: Intake & Output 05/28/24 05/29/24 05/30/24 05/31/24 23:59 23:59 23:59 23:59 Intake Total 360 1930 2730 50 Output Total 1 300 1750 550 Balance 359 1630 980 -500 Meds/Results Medications: Active Medications Generic Name Dose Route Start Last Admin Trade Name Freq PRN Reason Stop Dose Admin Acetaminophen 650 mg 12/23/24 17:37 05/30/24 20:48 Acetaminophen 325 Mg Tablet PO 650 mg Q4H PRN Administration Pain Albuterol 2.5 mg 05/28/24 20:30 05/31/24 07:54 Albuterol Sulfate Neb 2.5 Mg/3 Ml Inh INHALATION 2.5 mg QIDRT ALEKSEY Administration Apixaban 5 mg 05/28/24 21:00 05/30/24 20:48 Apixaban 2.5 Mg Tablet BY MOUTH 5 mg Q12HR ALEKSEY Administration Aspirin 81 mg 05/29/24 09:00 05/30/24 09:22 Aspirin 81 Mg Enteric Tablet PO 81 mg DAILY ALEKSEY Administration Baclofen 10 mg 05/28/24 21:00 05/30/24 20:48 Baclofen 10 Mg Tablet PO 10 mg BEDTIME ALEKSEY Administration Benzonatate 200 mg 05/28/24 18:19 Benzonatate 100 Mg Capsule PO TID PRN cough Bumetanide 1 mg 05/29/24 09:00 05/30/24 17:38 Bumetanide 1 Mg Tablet PO 1 mg BID ALEKSEY Administration Dextrose 12.5 gm 05/28/24 17:41 Dextrose 50% 25 Gm/50 Ml Syringe IV PUSH PRN PRN Hypoglycemia Protocol Famotidine 20 mg 05/28/24 21:00 05/30/24 20:48 Famotidine 20 Mg Tablet PO 20 mg Q12HR ALEKSEY Administration Ferrous Sulfate 324 mg 05/29/24 09:00 05/30/24 09:21 Ferrous Sulfate [address] BY MOUTH 324 mg DAILY ALEKSEY Administration Fluticasone Propionate 2 spray 05/28/24 21:00 05/30/24 20:47 Fluticasone Propionate 0.05% Na Spr 16 Gm Btl (*Bkc) NASAL 2 spray Q12HR ALEKSEY Administration Fluticasone/Umeclidinium/Vilanterol 1 puff 05/29/24 09:00 05/30/24 09:36 Fluticasone/Umeclidin/Vilanter 100-62.5-25 Mcg Ellipta INHALATION 1 puff DAILY ALEKSEY Administration Folic Acid 0.4 mg 05/29/24 09:00 05/30/24 09:21 Folic Acid 0.4 Mg Tablet PO 0.4 mg DAILY ALEKSEY Administration Gabapentin 300 mg 05/29/24 09:00 05/30/24 17:38 Gabapentin 300 Mg Capsule PO 300 mg BID ALEKSEY Administration Glucagon 1 mg 05/28/24 17:41 Glucagon For Inj 1 Mg Vial IM PRN PRN Hypoglycemia Protocol Glucose 15 gm 05/28/24 17:41 Glucose Oral Gel 15 Gm Of Glucse In 37.5 Gm Tube PO PRN PRN Hypoglycemia Protocol Hydrocortisone 1 applic 05/28/24 17:37 Hydrocortisone 1% 30 Gm Cream TOPICAL DAILY PRN itching Dextrose 1,000 mls @ 100 mls/hr 05/28/24 17:41 Dextrose 5% 1,000 Ml IVPB PRN PRN Hypoglycemia Protocol Lactobacillus Acidophilus 1 tablet 05/28/24 17:00 05/30/24 20:48 Acidophilus/Bulgaricus Chewable Tablet PO 1 tablet QID ALEKSEY Administration Lidocaine 1 patch 05/29/24 09:00 05/30/24 09:18 Lidocaine 5% Patch TRANSDERM 1 patch DAILY ALEKSEY Administration Loratadine 10 mg 05/28/24 21:00 05/30/24 20:48 Loratadine 10 Mg Tablet PO 10 mg QHS ALEKSEY Administration Magnesium Oxide 400 mg 05/29/24 09:00 05/30/24 17:38 Magnesium Oxide 400 Mg Tablet PO 400 mg BID ALEKSEY Administration Metoprolol Succinate 50 mg 05/29/24 09:00 05/30/24 09:22 Metoprolol Succinate Ext Rel 50 Mg Tabcr PO 50 mg DAILY ALEKSEY Administration Multi-Ingred Cream/Lotion/Oil/Oint 1 applic 05/29/24 09:00 05/30/24 09:25 Eucerin Cream 120 Gm Jar TOPICAL Not Given DAILY [facility] Nonformulary Drug ( 1 each 05/29/24 11:00 05/30/24 09:19 Roflumilast 500mcg PO 06/28/24 10:59 1 each Tablet [Daliresp]) DAILY ALEKSEY Administration Ondansetron HCl 4 mg 05/28/24 17:41 Ondansetron Hcl Odt 4 Mg Tablet PO Q6H PRN Nausea And Vomiting Spironolactone 12.5 mg 05/29/24 09:00 05/30/24 09:20 Spironolactone 12.5 Mg Tablet PO 12.5 mg DAILY ALEKSEY Administration Tamsulosin HCl 0.4 mg 05/28/24 21:00 05/30/24 20:48 Tamsulosin Hcl 0.4 Mg Capsule PO 0.4 mg HS ALEKSEY Administration Triamcinolone Acetonide 1 applic 05/29/24 09:00 05/30/24 09:25 Triamcinolone Acet 0.1% Cream 15 Gm Tube TOPICAL Not Given DAILY [facility] Vitamin D 1,000 units 05/29/24 09:00 05/30/24 09:20 Cholecalciferol 1,000 Units Tablet PO 1,000 units DAILY [facility] Administration Quality VTE Prophylaxis VTE prophylaxis: pharmacologic ordered
[2024-05-31 09:47] LABS: Basophils Absolute Auto 0.02 K/mm3 (0.00-0.10); Basophils Percent Auto 0.2 % (0.0-1.0); Eosinophils Absolute Auto 0.14 K/mm3 (0.02-0.50); Eosinophils Percent Auto 1.1 % (1.0-6.0); Hematocrit 39.7 % (37.0-46.0); Hemoglobin 12.7 g/dL (12.4-15.3); Immature Granulocyte Absolute 0.27 K/mm3 (0.00-0.00); Immature Granulocyte Percent A 2.2 % (0.0-0.0); Lymphocytes Absolute Auto 0.81 K/mm3 (1.10-4.50); Lymphocytes Percent Auto 6.5 % (18.0-42.0); Mean Corpuscular Hemoglobin 29.2 pg (27.0-31.0); Mean Corpuscular Volume 91.3 fL (78.0-102.0); Mean Platelet Volume 12.8 fl (8.7-11.0); Monocytes Absolute Auto 1.33 K/mm3 (0.10-0.90); Monocytes Percent Auto 10.7 % (2.0-11.0); Neutrophils Absolute Auto 9.81 K/mm3 (1.70-7.20); Neutrophils Percent Auto 79.3 % (50.0-70.0); Platelet Count Result 155 K/mm3 (150-420); Red Blood Count 4.35 M/mm3 (4.70-6.10); Red Cell Distribution Width 16.3 % (11.6-14.4); White Blood Count 12.4 K/mm3 (4.8-10.8)
[2024-05-31] MEDS: LIDOCAINE 5% PATCH 1 PATCH TRANSDERM (09:47)
[2024-05-31] MEDS: [UNRECOGNIZED DRUG - OTHER] PO (09:48)
[2024-05-31] MEDS: ROFLUMILAST 500 MCG PO (09:48)
[2024-05-31] MEDS: FLUTICASONE PROPIONATE 0.05% NA SPR 16 GM BTL (*BKC) 2 SPRAY NASAL ×2 (09:49→20:12)
[2024-05-31] MEDS: MAGNESIUM OXIDE 400 MG TABLET PO ×2 (09:51→17:54)
[2024-05-31] MEDS: BUMETANIDE 1 MG TABLET PO (09:51)
[2024-05-31] MEDS: FAMOTIDINE 20 MG TABLET PO ×2 (09:51→20:13)
[2024-05-31] MEDS: EUCERIN CREAM 120 GM JAR 1 APPLIC TOPICAL (09:51)
[2024-05-31] MEDS: CHOLECALCIFEROL 1,000 UNITS TABLET 1000 UNITS PO (09:51)
[2024-05-31] MEDS: METOPROLOL SUCCINATE EXT REL 50 MG TABCR PO (09:51)
[2024-05-31] MEDS: FOLIC ACID 0.4 MG TABLET PO (09:51)
[2024-05-31] MEDS: TRIAMCINOLONE ACET 0.1% CREAM 15 GM TUBE 1 APPLIC TOPICAL (09:51)
[2024-05-31] MEDS: SPIRONOLACTONE 12.5 MG TABLET PO (09:51)
[2024-05-31] MEDS: ACIDOPHILUS/BULGARICUS CHEWABLE TABLET 1 TABLET PO ×4 (09:52→20:13)
[2024-05-31] MEDS: FERROUS SULFATE 325 MG TABLET DR 324 MG BY MOUTH (09:52)
[2024-05-31] MEDS: APIXABAN 2.5 MG TABLET 5 MG BY MOUTH ×2 (09:53→20:13)
[2024-05-31] MEDS: ASPIRIN 81 MG ENTERIC TABLET PO (09:53)
[2024-05-31] MEDS: GABAPENTIN 300 MG CAPSULE PO ×2 (09:53→17:54)
[2024-05-31 10:14] LABS: Alanine Aminotransferase 61 U/L (16-63); Albumin Level 3.4 g/dL (3.4-5.0); Alkaline Phosphatase 120 U/L (46-116); Anion Gap 8 mmol/L (4-12); Aspartate Amino Transferase 19 U/L (15-37); Bilirubin,Total 1.1 mg/dL (0.00-1.00); Blood Urea Nitrogen 55 mg/dL (7-18); Calcium 9.3 mg/dL (8.5-10.1); Carbon Dioxide 31 mmol/L (21-32); Chloride 99 mmol/L (98-108); Estimated CRCL calculation 33 ml/min; Estimated Glomerular Filt Rate 31; Glucose 191 mg/dL (70-99); Osmolality Calculated 306 mOsm/kg (285-295); Potassium 4.2 mmol/L (3.5-5.1); Sodium 138 mmol/L (136-145); Total Protein 6.7 g/dL (6.4-8.2)
--- NOTE | 2024-05-31 10:42 | PHAR ---
Meds from home identified Breztri inhaler
[2024-05-31] MEDS: BREZTRI INHALATION (20:11)
[2024-05-31] MEDS: TAMSULOSIN HCL 0.4 MG CAPSULE PO (20:13)
[2024-05-31] MEDS: BACLOFEN 10 MG TABLET PO (20:13)
[2024-05-31] MEDS: LORATADINE 10 MG TABLET PO (20:13)
[2024-05-31] MEDS: ACETAMINOPHEN 325 MG TABLET 650 MG PO (20:31)
--- NOTE | 2024-05-31 20:56 | PC.NURSE ---
Campos Arce, COMMODITY TRADER/Hospitalist, notified of patient's c/o left calf pain with no swelling. New order received.
[2024-05-31] MEDS: DICLOFENAC SODIUM 1% 100 GM GEL (*BKC) 1 APPLIC TOPICAL (21:18)
[2024-06-01] VITALS (12 sets, daily range): BP systolic 97–129; BP diastolic 65–67; PULSE 71–98; RESP 18–20; TEMP 35.9–36.5; O2SAT 96–100
[2024-06-01 05:35] LABS: Hematocrit 37.9 % (37.0-46.0); Hemoglobin 12.2 g/dL (12.4-15.3); Immature Platelet Fraction Pct 12.2 % (1.0-7.0); Mean Corpuscular HGB Conc 32.2 g/dL (32-36); Mean Corpuscular Hemoglobin 29.2 pg (27.0-31.0); Mean Corpuscular Volume 90.7 fL (78.0-102.0); Mean Platelet Volume 13.6 fl (8.7-11.0); Platelet Count Result 122 K/mm3 (150-420); Red Blood Count 4.18 M/mm3 (4.70-6.10); Red Cell Distribution Width 16.5 % (11.6-14.4); White Blood Count 12.2 K/mm3 (4.8-10.8)
[2024-06-01 05:50] LABS: Alanine Aminotransferase 49 U/L (16-63); Albumin Level 3.2 g/dL (3.4-5.0); Alkaline Phosphatase 115 U/L (46-116); Anion Gap 8 mmol/L (4-12); Aspartate Amino Transferase 17 U/L (15-37); Bilirubin,Total 1.1 mg/dL (0.00-1.00); Blood Urea Nitrogen 47 mg/dL (7-18); Calcium 9.2 mg/dL (8.5-10.1); Carbon Dioxide 31 mmol/L (21-32); Chloride 98 mmol/L (98-108); Estimated CRCL calculation 40 ml/min; Estimated Glomerular Filt Rate 38; Glucose 122 mg/dL (70-99); Osmolality Calculated 297 mOsm/kg (285-295); Potassium 4.4 mmol/L (3.5-5.1); Sodium 137 mmol/L (136-145); Total Protein 6.4 g/dL (6.4-8.2)
[2024-06-01] MEDS: ALBUTEROL SULFATE NEB 2.5 MG/3 ML INH INHALATION ×4 (06:17→21:06)
[2024-06-01] MEDS: FOLIC ACID 0.4 MG TABLET PO (08:38)
[2024-06-01] MEDS: ASPIRIN 81 MG ENTERIC TABLET PO (08:38)
[2024-06-01] MEDS: ACIDOPHILUS/BULGARICUS CHEWABLE TABLET 1 TABLET PO ×4 (08:38→21:06)
[2024-06-01] MEDS: CHOLECALCIFEROL 1,000 UNITS TABLET 1000 UNITS PO (08:38)
[2024-06-01] MEDS: METOPROLOL SUCCINATE EXT REL 50 MG TABCR PO (08:38)
[2024-06-01] MEDS: GABAPENTIN 300 MG CAPSULE PO ×2 (08:38→16:55)
[2024-06-01] MEDS: MAGNESIUM OXIDE 400 MG TABLET PO ×2 (08:38→16:55)
[2024-06-01] MEDS: FERROUS SULFATE 325 MG TABLET DR 324 MG BY MOUTH (08:38)
[2024-06-01] MEDS: APIXABAN 2.5 MG TABLET 5 MG BY MOUTH ×2 (08:38→21:06)
[2024-06-01] MEDS: FAMOTIDINE 20 MG TABLET PO ×2 (08:38→21:06)
[2024-06-01] MEDS: TRIAMCINOLONE ACET 0.1% CREAM 15 GM TUBE 1 APPLIC TOPICAL (08:39)
[2024-06-01] MEDS: LIDOCAINE 5% PATCH 1 PATCH TRANSDERM (08:39)
[2024-06-01] MEDS: EUCERIN CREAM 120 GM JAR 1 APPLIC TOPICAL (08:40)
[2024-06-01] MEDS: FLUTICASONE PROPIONATE 0.05% NA SPR 16 GM BTL (*BKC) 2 SPRAY NASAL ×2 (08:46→21:07)
[2024-06-01] MEDS: BREZTRI INHALATION ×2 (08:46→21:05)
[2024-06-01] MEDS: ROFLUMILAST 250 MCG TABLET 500 MCG PO (08:48)
[2024-06-01] MEDS: ACETAMINOPHEN 325 MG TABLET 650 MG PO ×2 (16:55→23:33)
[2024-06-01] MEDS: LORATADINE 10 MG TABLET PO (21:06)
[2024-06-01] MEDS: TAMSULOSIN HCL 0.4 MG CAPSULE PO (21:06)
[2024-06-01] MEDS: BACLOFEN 10 MG TABLET PO (21:06)
[2024-06-02] VITALS (9 sets, daily range): BP systolic 109–132; BP diastolic 52–63; PULSE 73–96; RESP 14–18; TEMP 35.9–36.6; O2SAT 96–100
[2024-06-02 05:51] LABS: Basophils Absolute Auto 0.02 K/mm3 (0.00-0.10); Basophils Percent Auto 0.2 % (0.0-1.0); Eosinophils Absolute Auto 0.23 K/mm3 (0.02-0.50); Hemoglobin 11.8 g/dL (12.4-15.3); Immature Granulocyte Absolute 0.15 K/mm3 (0.00-0.00); Immature Granulocyte Percent A 1.3 % (0.0-0.0); Immature Platelet Fraction Pct 10.8 % (1.0-7.0); Lymphocytes Absolute Auto 0.77 K/mm3 (1.10-4.50); Lymphocytes Percent Auto 6.7 % (18.0-42.0); Mean Corpuscular HGB Conc 31.9 g/dL (32-36); Mean Corpuscular Hemoglobin 29.1 pg (27.0-31.0); Mean Corpuscular Volume 91.4 fL (78.0-102.0); Mean Platelet Volume 13.3 fl (8.7-11.0); Monocytes Absolute Auto 1.16 K/mm3 (0.10-0.90); Neutrophils Absolute Auto 9.23 K/mm3 (1.70-7.20); Neutrophils Percent Auto 79.8 % (50.0-70.0); Platelet Count Result 113 K/mm3 (150-420); Red Blood Count 4.05 M/mm3 (4.70-6.10); Red Cell Distribution Width 16.6 % (11.6-14.4); White Blood Count 11.6 K/mm3 (4.8-10.8)
[2024-06-02 06:04] LABS: Alanine Aminotransferase 47 U/L (16-63); Albumin Level 2.9 g/dL (3.4-5.0); Alkaline Phosphatase 115 U/L (46-116); Anion Gap 6 mmol/L (4-12); Aspartate Amino Transferase 15 U/L (15-37); Bilirubin,Total 1.2 mg/dL (0.00-1.00); Blood Urea Nitrogen 45 mg/dL (7-18); Calcium 9.2 mg/dL (8.5-10.1); Carbon Dioxide 31 mmol/L (21-32); Chloride 100 mmol/L (98-108); Estimated CRCL calculation 43 ml/min; Estimated Glomerular Filt Rate 42; Glucose 119 mg/dL (70-99); Osmolality Calculated 296 mOsm/kg (285-295); Potassium 4.4 mmol/L (3.5-5.1); Sodium 137 mmol/L (136-145); Total Protein 6.2 g/dL (6.4-8.2)
[2024-06-02] MEDS: ALBUTEROL SULFATE NEB 2.5 MG/3 ML INH INHALATION ×4 (06:44→21:08)
--- NOTE | 2024-06-02 09:35 | P.PNIM_ITS ---
Progress Note: A&P Assessment and Plan (1) Physical deconditioning: Code(s): R53.81 - Other malaise Status: Acute Assessment and Plan: post hospitalization for acute respiratory failure with hypoxia secondary to COVID-19, he is currently COVID recovered * PT/OT * up in chair with all meals * Has multi-level home with stairs, will need to incorporate stair training with his PT 06/02 * He has been progressing well with stair training and is feeling stronger each day * Continue PT and OT (2) COPD (chronic obstructive pulmonary disease): Code(s): J44.9 - Chronic obstructive pulmonary disease, unspecified Status: Acute Assessment and Plan: * stable * resumed albuterol as needed * on 2 L nasal cannula chronically (3) Chronic kidney disease: Qualifiers: Chronic kidney disease stage: stage 3 (moderate) Qualified Code(s): N18.3 - Chronic kidney disease, stage 3 (moderate) Code(s): N18.9 - Chronic kidney disease, unspecified Status: Acute Assessment and Plan: * creatinine 2.11 * baseline 1.2-1.3 * Hold spironolactone and Lasix, will continue to trend. * avoid nephrotoxic medications * monitor renal function 06/02 * Creatinine today 1.62, trending towards baseline * May need to hold off on Spironolactone and just use Lasix in the future considering the PAYTON * Continue to avoid nephrotoxic medications * Continue to trend labs (4) Acute kidney injury: Code(s): N17.9 - Acute kidney failure, unspecified Status: Resolved Assessment and Plan: * creatinine 2.11 today * baseline 1.2-1.3 * hold spironolactone and Lasix, will continue to trend 06/02 * Creatinine today 1.62, trending towards baseline * May need to hold off on Spironolactone and just use Lasix in the future considering the PAYTON * Continue to avoid nephrotoxic medications * Continue to trend labs (5) Chronic diastolic heart failure: Code(s): I50.32 - Chronic diastolic (congestive) heart failure Status: Chronic Assessment and Plan: * Last echo reviewed and shown normal EF with grade I diastolic dysfunction * does not appear in exacerbation * continue Amado TINEO * Hold spironolactone and Lasix due to PAYTON (6) Paroxysmal atrial fibrillation: Code(s): I48.0 - Paroxysmal atrial fibrillation Status: Chronic Assessment and Plan: * Resumed amado (7) Chronic hypoxemic respiratory failure: Code(s): J96.11 - Chronic respiratory failure with hypoxia Status: Chronic Assessment and Plan: * continue 2L supplemental oxygen-- baseline oxygen requirement (8) Liver cirrhosis secondary to nonalcoholic steatohepatitis (RAYGOZA): Code(s): K75.81 - Nonalcoholic steatohepatitis (RAYGOZA); K74.60 - Unspecified cirrhosis of liver Status: Chronic Assessment and Plan: * Stable * Monitor liver enzymes PRN (9) Thrombocytopenia: Code(s): D69.6 - Thrombocytopenia, unspecified Status: Acute Assessment and Plan: * initial platelet was 149>155>191>122>119 * Continue to trend Plan Time Spent With Patient Time with patient: Greater than 35 minutes Subjective Date/time seen: 06/02/24 09:35 Interval history: Interval history: This is a 73-year-old male who presented to [facility] for rehabilitation after recent hospitalization for acute on chronic respiratory failure with hypoxia secondary to COVID-19, COPD exacerbation, CHF exacerbation. he finished a full course of remdesivir, Decadron, IV Lasix, and bronchodilators. He is COVID recovered at this time. During his hospitalization he did have some urinary retention and was seen by Urology who started him on Flomax for BPH. He did have a bladder trial and of Cabral catheter was removed. Patient's last set of labs showed a white blood cell count of 13.1, hemoglobin 12.3, platelet count 149, sodium 133, creatinine 1.70, blood sugar ranging 102-174, ALT was 61, last hemoglobin A1c was 6.0. Patient is refusing Accu-Cheks and sliding scale and he is unsure if he wants to take metformin. He will discuss this with his primary care physician once he is discharged. Subjective: Patient denies any new complaints today. He reports that he has been working with the stairs in PT sessions and is doing well. He states he feels he will be ready to discharge sometime next week. Labs reviewed. Review of Systems Review of Systems: All systems reviewed & are unremarkable except as noted in HPI and below Exam Narrative: General: In no acute distress, well nourished Cardiac: Normal S1 and S2. RRR, No murmur, gallops or friction rubs, peripheral pulses intact. Respiratory: Lungs clear to auscultation, no adventitious lung sounds, currently on 2L NC Gastrointestinal: soft, non-distended, non-tender, normoactive bowel sounds. : voiding without difficulty. Neuro: Alert and oriented x4 Objective Data Vital Signs Vital Signs: Vital Signs - 24 hr 06/01/24 10:14 06/01/24 10:26 06/01/24 15:45 Temperature Pulse Rate 90 92 88 Respiratory Rate 20 18 20 Blood Pressure Pulse Oximetry 98 100 98 Oxygen Delivery Oxygen Flow Rate 2 2 06/01/24 15:54 06/01/24 16:00 06/01/24 21:06 Temperature 96.7 F L Pulse Rate 86 95 Respiratory Rate 20 18 Blood Pressure 129/65 Pulse Oximetry 100 99 100 Oxygen Delivery Nasal Cannula Oxygen Flow Rate 2 2 06/01/24 21:25 06/02/24 00:00 06/02/24 06:44 Temperature 97.9 F Pulse Rate 96 Respiratory Rate 17 Blood Pressure 124/52 L Pulse Oximetry 100 100 100 Oxygen Delivery Nasal Cannula Oxygen Flow Rate 2 2 Intake/Output Intake/Output: Intake & Output 05/30/24 05/31/24 06/01/24 06/02/24 23:59 23:59 23:59 23:59 Intake Total 2730 2400 1320 480 Output Total 1750 3714 132 8328 Balance 980 1400 1020 -520 Meds/Results Medications: Active Medications Generic Name Dose Route Start Last Admin Trade Name Freq PRN Reason Stop Dose Admin Acetaminophen 650 mg 05/28/24 17:37 06/01/24 23:33 Acetaminophen 325 Mg Tablet PO 650 mg Q4H PRN Administration Pain Albuterol 2.5 mg 05/28/24 20:30 06/02/24 06:44 Albuterol Sulfate Neb 2.5 Mg/3 Ml Inh INHALATION 2.5 mg QIDRT ALEKSEY Administration Apixaban 5 mg 05/28/24 21:00 06/01/24 21:06 Apixaban 2.5 Mg Tablet BY MOUTH 5 mg Q12HR ALEKSEY Administration Aspirin 81 mg 05/29/24 09:00 06/01/24 08:38 Aspirin 81 Mg Enteric Tablet PO 81 mg DAILY ALEKSEY Administration Baclofen 10 mg 05/28/24 21:00 06/01/24 21:06 Baclofen 10 Mg Tablet PO 10 mg BEDTIME ALEKSEY Administration Benzonatate 200 mg 05/28/24 18:19 Benzonatate 100 Mg Capsule PO TID PRN cough Bumetanide 1 mg 05/29/24 09:00 05/31/24 09:51 Bumetanide 1 Mg Tablet PO 1 mg BID ALEKSEY Administration Dextrose 12.5 gm 05/28/24 17:41 Dextrose 50% 25 Gm/50 Ml Syringe IV PUSH PRN PRN Hypoglycemia Protocol Diclofenac Sodium 1 applic 05/31/24 20:54 05/31/24 21:18 Diclofenac Sodium 1% 100 Gm Gel (*Bkc) TOPICAL 1 applic QID PRN Administration Muscle/Joint Pain Famotidine 20 mg 05/28/24 21:00 06/01/24 21:06 Famotidine 20 Mg Tablet PO 20 mg Q12HR ALEKSEY Administration Ferrous Sulfate 324 mg 05/29/24 09:00 06/01/24 08:38 Ferrous Sulfate [address] BY MOUTH 324 mg DAILY ALEKSEY Administration Fluticasone Propionate 2 spray 05/28/24 21:00 06/01/24 21:07 Fluticasone Propionate 0.05% Na Spr 16 Gm Btl (*Bkc) NASAL 2 spray Q12HR ALEKSEY Administration Folic Acid 0.4 mg 05/29/24 09:00 06/01/24 08:38 Folic Acid 0.4 Mg Tablet PO 0.4 mg DAILY ALEKSEY Administration Gabapentin 300 mg 05/29/24 09:00 06/01/24 16:55 Gabapentin 300 Mg Capsule PO 300 mg BID ALEKSEY Administration Glucagon 1 mg 05/28/24 17:41 Glucagon For Inj 1 Mg Vial IM PRN PRN Hypoglycemia Protocol Glucose 15 gm 05/28/24 17:41 Glucose Oral Gel 15 Gm Of Glucse In 37.5 Gm Tube PO PRN PRN Hypoglycemia Protocol Home Med 0 each 05/31/24 21:00 06/01/24 21:05 Breztri 106/9/4.8 INHALATION 06/30/24 20:59 2 each Q12HR ALEKSEY Administration Hydrocortisone 1 applic 05/28/24 17:37 Hydrocortisone 1% 30 Gm Cream TOPICAL DAILY PRN itching Dextrose 1,000 mls @ 100 mls/hr 05/28/24 17:41 Dextrose 5% 1,000 Ml IVPB PRN PRN Hypoglycemia Protocol Lactobacillus Acidophilus 1 tablet 05/28/24 17:00 06/01/24 21:06 Acidophilus/Bulgaricus Chewable Tablet PO 1 tablet QID ALEKSEY Administration Lidocaine 1 patch 05/29/24 09:00 06/01/24 08:39 Lidocaine 5% Patch TRANSDERM 1 patch DAILY ALEKSEY Administration Loratadine 10 mg 05/28/24 21:00 06/01/24 21:06 Loratadine 10 Mg Tablet PO 10 mg QHS ALEKSEY Administration Magnesium Oxide 400 mg 05/29/24 09:00 06/01/24 16:55 Magnesium Oxide 400 Mg Tablet PO 400 mg BID ALEKSEY Administration Metoprolol Succinate 50 mg 05/29/24 09:00 06/01/24 08:38 Metoprolol Succinate Ext Rel 50 Mg Tabcr PO 50 mg DAILY ALEKSEY Administration Multi-Ingred Cream/Lotion/Oil/Oint 1 applic 05/29/24 09:00 06/01/24 08:40 Eucerin Cream 120 Gm Jar TOPICAL 1 applic DAILY ALEKSEY Administration Ondansetron HCl 4 mg 05/28/24 17:41 Ondansetron Hcl Odt 4 Mg Tablet PO Q6H PRN Nausea And Vomiting Roflumilast 500 mcg 06/01/24 09:00 06/01/24 08:48 Roflumilast 250 Mcg Tablet PO 500 mcg DAILY ALEKSEY Administration Spironolactone 12.5 mg 05/29/24 09:00 05/31/24 09:51 Spironolactone 12.5 Mg Tablet PO 12.5 mg DAILY ALEKSEY Administration Tamsulosin HCl 0.4 mg 05/28/24 21:00 06/01/24 21:06 Tamsulosin Hcl 0.4 Mg Capsule PO 0.4 mg HS ALEKSEY Administration Triamcinolone Acetonide 1 applic 05/29/24 09:00 06/01/24 08:39 Triamcinolone Acet 0.1% Cream 15 Gm Tube TOPICAL 1 applic DAILY ALEKSEY Administration Vitamin D 1,000 units 05/29/24 09:00 06/01/24 08:38 Cholecalciferol 1,000 Units Tablet PO 1,000 units DAILY ALEKSEY Administration Labs Labs: Laboratory Results - last 24 hr 06/02/24 05:38 WBC 11.6 H RBC 4.05 L Hgb 11.8 L Hct 37.0 MCV 91.4 MCH 29.1 MCHC 31.9 L RDW 16.6 H Plt Count 113 L MPV 13.3 H Immature Gran % (Auto) 1.3 H Neut % (Auto) 79.8 H Lymph % (Auto) 6.7 L [place] % (Auto) 10.0 Eos % (Auto) 2.0 Baso % (Auto) 0.2 Lymph # (Auto) 0.77 L [place] # (Auto) 1.16 H Eos # (Auto) 0.23 Baso # (Auto) 0.02 Abs Immat Gran (auto) 0.15 H Absolute Neuts (auto) 9.23 H Absolute Nucleated RBC 0.00 Nucleated RBC % 0.0 % Immature Plt Fraction 10.8 H Sodium 137 Potassium 4.4 Chloride 100 Carbon Dioxide 31 Anion Gap 6 BUN 45 H Creatinine 1.62 H Estim Creat Clear Calc 43 Estimated GFR 42 L Glucose 119 H Calculated Osmolality 296 H Calcium 9.2 Total Bilirubin 1.2 H AST 15 ALT 47 Alkaline Phosphatase 115 Total Protein 6.2 L Albumin 2.9 L Quality VTE Prophylaxis VTE prophylaxis: pharmacologic ordered
[2024-06-02] MEDS: BREZTRI INHALATION ×2 (10:08→21:11)
[2024-06-02] MEDS: METOPROLOL SUCCINATE EXT REL 50 MG TABCR PO (10:09)
[2024-06-02] MEDS: APIXABAN 2.5 MG TABLET 5 MG BY MOUTH ×2 (10:09→21:07)
[2024-06-02] MEDS: FERROUS SULFATE 325 MG TABLET DR 324 MG BY MOUTH (10:10)
[2024-06-02] MEDS: FOLIC ACID 0.4 MG TABLET PO (10:12)
[2024-06-02] MEDS: CHOLECALCIFEROL 1,000 UNITS TABLET 1000 UNITS PO (10:12)
[2024-06-02] MEDS: FAMOTIDINE 20 MG TABLET PO ×2 (10:13→21:08)
[2024-06-02] MEDS: ROFLUMILAST 250 MCG TABLET 500 MCG PO (10:13)
[2024-06-02] MEDS: ASPIRIN 81 MG ENTERIC TABLET PO (10:14)
[2024-06-02] MEDS: FLUTICASONE PROPIONATE 0.05% NA SPR 16 GM BTL (*BKC) 2 SPRAY NASAL ×2 (10:14→21:08)
[2024-06-02] MEDS: MAGNESIUM OXIDE 400 MG TABLET PO ×2 (10:14→17:48)
[2024-06-02] MEDS: ACIDOPHILUS/BULGARICUS CHEWABLE TABLET 1 TABLET PO ×4 (10:14→21:07)
[2024-06-02] MEDS: LIDOCAINE 5% PATCH 1 PATCH TRANSDERM (10:15)
[2024-06-02] MEDS: GABAPENTIN 300 MG CAPSULE PO ×2 (10:21→17:48)
[2024-06-02] MEDS: EUCERIN CREAM 120 GM JAR 1 APPLIC TOPICAL (10:21)
[2024-06-02] MEDS: TRIAMCINOLONE ACET 0.1% CREAM 15 GM TUBE 1 APPLIC TOPICAL (10:21)
[2024-06-02] MEDS: ACETAMINOPHEN 325 MG TABLET 650 MG PO ×2 (13:18→17:48)
[2024-06-02] MEDS: TAMSULOSIN HCL 0.4 MG CAPSULE PO (21:07)
[2024-06-02] MEDS: BACLOFEN 10 MG TABLET PO (21:07)
[2024-06-02] MEDS: LORATADINE 10 MG TABLET PO (21:08)
[2024-06-02] MEDS: DICLOFENAC SODIUM 1% 100 GM GEL (*BKC) 1 APPLIC TOPICAL (21:11)
[2024-06-03] VITALS (7 sets, daily range): BP systolic 110–120; BP diastolic 61–68; PULSE 72–83; RESP 14–18; TEMP 36.2–36.6; O2SAT 97–100
[2024-06-03] MEDS: ALBUTEROL SULFATE NEB 2.5 MG/3 ML INH INHALATION ×4 (06:30→21:26)
--- NOTE | 2024-06-03 08:34 | PM.EVENT ---
Event Note Event Note Event Note: Creatinine today 1.62 which is back to baseline. I will restart Bumex 1 mg daily for now. He normally takes this BID. Will continue to monitor labs.
[2024-06-03] MEDS: CHOLECALCIFEROL 1,000 UNITS TABLET 1000 UNITS PO (09:45)
[2024-06-03] MEDS: GABAPENTIN 300 MG CAPSULE PO ×2 (09:45→16:35)
[2024-06-03] MEDS: MAGNESIUM OXIDE 400 MG TABLET PO ×2 (09:45→16:35)
[2024-06-03] MEDS: LIDOCAINE 5% PATCH 1 PATCH TRANSDERM (09:45)
[2024-06-03] MEDS: ROFLUMILAST 250 MCG TABLET 500 MCG PO (09:46)
[2024-06-03] MEDS: FOLIC ACID 0.4 MG TABLET PO (09:46)
[2024-06-03] MEDS: FERROUS SULFATE 325 MG TABLET DR 324 MG BY MOUTH (09:47)
[2024-06-03] MEDS: APIXABAN 2.5 MG TABLET 5 MG BY MOUTH ×2 (09:47→21:26)
[2024-06-03] MEDS: FLUTICASONE PROPIONATE 0.05% NA SPR 16 GM BTL (*BKC) 2 SPRAY NASAL ×2 (09:48→21:26)
[2024-06-03] MEDS: FAMOTIDINE 20 MG TABLET PO ×2 (09:48→21:26)
[2024-06-03] MEDS: ACIDOPHILUS/BULGARICUS CHEWABLE TABLET 1 TABLET PO ×4 (09:48→21:26)
[2024-06-03] MEDS: METOPROLOL SUCCINATE EXT REL 50 MG TABCR PO (09:48)
[2024-06-03] MEDS: BREZTRI INHALATION ×2 (09:49→21:27)
[2024-06-03] MEDS: EUCERIN CREAM 120 GM JAR 1 APPLIC TOPICAL (09:54)
[2024-06-03] MEDS: ASPIRIN 81 MG ENTERIC TABLET PO (09:55)
[2024-06-03 10:58] LABS: Alanine Aminotransferase 41 U/L (16-63); Alkaline Phosphatase 131 U/L (46-116); Anion Gap 4 mmol/L (4-12); Aspartate Amino Transferase 21 U/L (15-37); Blood Urea Nitrogen 40 mg/dL (7-18); Calcium 9.3 mg/dL (8.5-10.1); Carbon Dioxide 32 mmol/L (21-32); Chloride 102 mmol/L (98-108); Estimated CRCL calculation 45 ml/min; Estimated Glomerular Filt Rate 45; Glucose 143 mg/dL (70-99); Osmolality Calculated 297 mOsm/kg (285-295); Potassium 4.7 mmol/L (3.5-5.1); Sodium 138 mmol/L (136-145); Total Protein 6.4 g/dL (6.4-8.2)
[2024-06-03] MEDS: ACETAMINOPHEN 325 MG TABLET 650 MG PO (11:48)
[2024-06-03] MEDS: DICLOFENAC SODIUM 1% 100 GM GEL (*BKC) 1 APPLIC TOPICAL ×2 (16:38→21:27)
[2024-06-03] MEDS: LORATADINE 10 MG TABLET PO (21:26)
[2024-06-03] MEDS: TAMSULOSIN HCL 0.4 MG CAPSULE PO (21:26)
[2024-06-03] MEDS: BACLOFEN 10 MG TABLET PO (21:26)
[2024-06-04] VITALS (12 sets, daily range): BP systolic 102–123; BP diastolic 58–72; PULSE 75–91; RESP 14–20; TEMP 36.1–36.5; O2SAT 97–100
[2024-06-04 05:30] LABS: Alanine Aminotransferase 42 U/L (16-63); Albumin Level 2.9 g/dL (3.4-5.0); Alkaline Phosphatase 131 U/L (46-116); Anion Gap 7 mmol/L (4-12); Aspartate Amino Transferase 17 U/L (15-37); Bilirubin,Total 0.9 mg/dL (0.00-1.00); Blood Urea Nitrogen 38 mg/dL (7-18); Calcium 9.2 mg/dL (8.5-10.1); Carbon Dioxide 28 mmol/L (21-32); Chloride 104 mmol/L (98-108); Estimated CRCL calculation 44 ml/min; Estimated Glomerular Filt Rate 43; Glucose 110 mg/dL (70-99); Osmolality Calculated 298 mOsm/kg (285-295); Potassium 4.5 mmol/L (3.5-5.1); Sodium 139 mmol/L (136-145); Total Protein 6.2 g/dL (6.4-8.2)
[2024-06-04] MEDS: ALBUTEROL SULFATE NEB 2.5 MG/3 ML INH INHALATION ×4 (05:39→20:50)
--- NOTE | 2024-06-04 08:43 | PM.EVENT ---
Event Note Event Note Event Note: Creatinine today 1.58 and still at baseline. Will add back spironolactone today. It appears that he was getting 1mg BID of Bumex when he normally takes 0.5mg of Bumex BID. This might explain the increase in his creatinine. We will continue with 1 mg daily for now.
[2024-06-04] MEDS: TRIAMCINOLONE ACET 0.1% CREAM 15 GM TUBE 1 APPLIC TOPICAL (09:12)
[2024-06-04] MEDS: BREZTRI INHALATION ×2 (09:48→20:50)
[2024-06-04] MEDS: FOLIC ACID 0.4 MG TABLET PO (09:49)
[2024-06-04] MEDS: LIDOCAINE 5% PATCH 1 PATCH TRANSDERM (09:49)
[2024-06-04] MEDS: CHOLECALCIFEROL 1,000 UNITS TABLET 1000 UNITS PO (09:49)
[2024-06-04] MEDS: FERROUS SULFATE 325 MG TABLET DR 324 MG BY MOUTH (09:49)
[2024-06-04] MEDS: ASPIRIN 81 MG ENTERIC TABLET PO (09:50)
[2024-06-04] MEDS: GABAPENTIN 300 MG CAPSULE PO ×2 (09:50→17:46)
[2024-06-04] MEDS: MAGNESIUM OXIDE 400 MG TABLET PO ×2 (09:50→17:46)
[2024-06-04] MEDS: METOPROLOL SUCCINATE EXT REL 50 MG TABCR PO (09:50)
[2024-06-04] MEDS: ACIDOPHILUS/BULGARICUS CHEWABLE TABLET 1 TABLET PO ×4 (09:50→20:48)
[2024-06-04] MEDS: FAMOTIDINE 20 MG TABLET PO ×2 (09:50→20:48)
[2024-06-04] MEDS: APIXABAN 2.5 MG TABLET 5 MG BY MOUTH ×2 (09:50→20:48)
[2024-06-04] MEDS: ROFLUMILAST 250 MCG TABLET 500 MCG PO (09:51)
[2024-06-04] MEDS: FLUTICASONE PROPIONATE 0.05% NA SPR 16 GM BTL (*BKC) 2 SPRAY NASAL ×2 (09:52→20:53)
[2024-06-04] MEDS: EUCERIN CREAM 120 GM JAR 1 APPLIC TOPICAL (09:55)
[2024-06-04] MEDS: ACETAMINOPHEN 325 MG TABLET 650 MG PO ×2 (10:10→19:23)
[2024-06-04] MEDS: SPIRONOLACTONE 12.5 MG TABLET PO (12:57)
[2024-06-04] MEDS: TAMSULOSIN HCL 0.4 MG CAPSULE PO (20:48)
[2024-06-04] MEDS: BACLOFEN 10 MG TABLET PO (20:48)
[2024-06-04] MEDS: LORATADINE 10 MG TABLET PO (20:48)
[2024-06-04] MEDS: DICLOFENAC SODIUM 1% 100 GM GEL (*BKC) 1 APPLIC TOPICAL (23:18)
[2024-06-05] VITALS (8 sets, daily range): BP systolic 124–128; BP diastolic 68–73; PULSE 77–91; RESP 16–20; TEMP 36.5; O2SAT 96–100
[2024-06-05] MEDS: ALBUTEROL SULFATE NEB 2.5 MG/3 ML INH INHALATION ×2 (05:32→11:06)
[2024-06-05] MEDS: LIDOCAINE 5% PATCH 1 PATCH TRANSDERM (08:29)
[2024-06-05] MEDS: CHOLECALCIFEROL 1,000 UNITS TABLET 1000 UNITS PO (08:30)
[2024-06-05] MEDS: APIXABAN 2.5 MG TABLET 5 MG BY MOUTH (08:30)
[2024-06-05] MEDS: GABAPENTIN 300 MG CAPSULE PO (08:31)
[2024-06-05] MEDS: FAMOTIDINE 20 MG TABLET PO (08:31)
[2024-06-05] MEDS: METOPROLOL SUCCINATE EXT REL 50 MG TABCR PO (08:31)
[2024-06-05] MEDS: ROFLUMILAST 250 MCG TABLET 500 MCG PO (08:32)
[2024-06-05] MEDS: ASPIRIN 81 MG ENTERIC TABLET PO (08:32)
[2024-06-05] MEDS: MAGNESIUM OXIDE 400 MG TABLET PO (08:33)
[2024-06-05] MEDS: ACIDOPHILUS/BULGARICUS CHEWABLE TABLET 1 TABLET PO ×2 (08:33→12:25)
[2024-06-05] MEDS: SPIRONOLACTONE 12.5 MG TABLET PO (08:33)
[2024-06-05] MEDS: FOLIC ACID 0.4 MG TABLET PO (08:35)
[2024-06-05] MEDS: FERROUS SULFATE 325 MG TABLET DR 324 MG BY MOUTH (08:35)
[2024-06-05] MEDS: BREZTRI INHALATION (08:36)
[2024-06-05] MEDS: TRIAMCINOLONE ACET 0.1% CREAM 15 GM TUBE 1 APPLIC TOPICAL (08:36)
[2024-06-05] MEDS: ACETAMINOPHEN 325 MG TABLET 650 MG PO (08:39)
[2024-06-05] MEDS: FLUTICASONE PROPIONATE 0.05% NA SPR 16 GM BTL (*BKC) 2 SPRAY NASAL (08:40)
--- NOTE | 2024-06-05 09:42 | P.DS_ITS ---
DS: Admitting Diagnosis Discharge Date 06/05/24 Admitting Diagnosis Physical deconditioning COPD chronic kidney disease chronic diastolic heart failure paroxysmal atrial fibrillation chronic hypoxic respiratory failure liver cirrhosis secondary to nonalcoholic steatohepatitis DS: Discharge Diagnosis Discharge Diagnosis (1) Physical deconditioning: Code(s): R53.81 - Other malaise Status: Acute (2) COPD (chronic obstructive pulmonary disease): Code(s): J44.9 - Chronic obstructive pulmonary disease, unspecified Status: Acute (3) Chronic kidney disease: Qualifiers: Chronic kidney disease stage: stage 3 (moderate) Qualified Code(s): N18.3 - Chronic kidney disease, stage 3 (moderate) Code(s): N18.9 - Chronic kidney disease, unspecified Status: Acute (4) Acute kidney injury: Code(s): N17.9 - Acute kidney failure, unspecified Status: Resolved (5) Chronic diastolic heart failure: Code(s): I50.32 - Chronic diastolic (congestive) heart failure Status: Chronic (6) Paroxysmal atrial fibrillation: Code(s): I48.0 - Paroxysmal atrial fibrillation Status: Chronic (7) Chronic hypoxemic respiratory failure: Code(s): J96.11 - Chronic respiratory failure with hypoxia Status: Chronic (8) Liver cirrhosis secondary to nonalcoholic steatohepatitis (RAYGOZA): Code(s): K75.81 - Nonalcoholic steatohepatitis (RAYGOZA); K74.60 - Unspecified cirrhosis of liver Status: Chronic (9) Thrombocytopenia: Code(s): D69.6 - Thrombocytopenia, unspecified Status: Acute DS: Summary Hospital Course Reason for hospitalization: Physical deconditioning COPD chronic kidney disease chronic diastolic heart failure paroxysmal atrial fibrillation chronic hypoxic respiratory failure liver cirrhosis secondary to nonalcoholic steatohepatitis Hospital Course: This is a 73-year-old male who presented to [facility] for ehabilitation after recent hospitalization for acute on chronic respiratory failure with hypoxia secondary to COVID-19, COPD exacerbation, CHF exacerbation. he finished a full course of remdesivir, Decadron, IV Lasix, and bronchodilators. He is COVID recovered at this time. During his hospitalization he did have some urinary retention and was seen by Urology who started him on Flomax for BPH. He did have a bladder trial and of Cabral catheter was removed. Patient's last set of labs showed a white blood cell count of 13.1, hemoglobin 12.3, platelet count 149, sodium 133, creatinine 1.70, blood sugar ranging 102-174, ALT was 61, last hemoglobin A1c was 6.0. Patient is refusing Accu-Cheks and sliding scale and he is unsure if he wants to take metformin. He will discuss this with his primary care physician once he is discharged. patient has progressed with therapy and is able to move up and down stairs which was needed for him To do before going home. He states he feels comfortab le and will continue his therapy exercises at home with his . Vital signs are stable, he is afebrile, he is currently on 2 L nasal cannula which is his baseline. He is stable for discharge at this time. He will need to follow up with his primary care doctor in 1 week. final diagnosis: physical deconditioning Status at Discharge Cognitive/behavioral status at discharge: alert oriented x4 Functional status at discharge: uses cane/walker Overall status at discharge: patient is progressing back to baseline Time Spent with Patient Time attestation: Total time spent providing and/or coordinating discharge services: Time spent: Greater than 30 minutes Exam Narrative: General: In no acute distress, well nourished Cardiac: Normal S1 and S2. RRR, No murmur, gallops or friction rubs, peripheral pulses intact. Respiratory: Lungs clear to auscultation, no adventitious lung sounds, currently on 2L NC Gastrointestinal: soft, non-distended, non-tender, normoactive bowel sounds. : voiding without difficulty. Neuro: Alert and oriented x4 DS: Data Data Completed and Pending Completed studies during hospitalization: none Pending studies at discharge: none Procedures/Treatments: none Discharge Plan Discharge Attending physician on discharge: Sergio Bellamy Consulting providers: Elsa Arce Discharging Clinician: Elsa Arce Anticipated Discharge Date/Time: 06/05/24 09:39 Patient Disposition: Home Health Service Activity: as tolerated Diet: as tolerated and diabetic Discharge Instructions: * Continue therapy exercises * Follow up in 1 week with primary care doctor. Patient Instructions: Antibiotic Form Patient Language: Dominican Stand Alone Forms: General Discharge Information Follow-up/Referrals: Cleo Funk DO [Primary Care Provider] - 1 week Discharge Medications: Continued acetaminophen 325 mg capsule 650 mg PO Q4H PRN (Reason: Pain) cholecalciferol (vitamin D3) 25 mcg (1,000 unit) capsule 25 mcg PO DAILY folic acid 400 mcg tablet 0.4 mg PO DAILY (DME) nebulizer accessories Kit See Rx Instructions .Route Qty: 3 3RF Rx Instructions: As directed Breztri Aerosphere 160-9-4.8 mcg/actuation HFA aerosol inhaler 2 inh INHALATION Q12H Qty: 10.7 11RF aspirin 81 mg tablet,delayed release (DR/EC) 81 mg PO DAILY (DME) Aerochamber MV Spacer See Rx Instructions .Route Qty: 10 0RF Rx Instructions: As directed pyridoxine (vitamin B6) 100 mg tablet 100 mg PO DAILY magnesium oxide 400 mg magnesium capsule 400 mg PO BID metoprolol succinate 50 mg tablet extended release 24 hr 50 mg PO DAILY Qty: 180 0RF omeprazole 40 mg capsule,delayed release(DR/EC) 40 mg PO DAILY benzonatate 200 mg capsule 200 mg PO TID PRN (Reason: cough) mesalamine [Rowasa] 4 gram/60 mL enema 4 g RECTAL PRN PRN (Reason: Diarrhea) Patient Comments: Per patient the patient is using this once a day at nighttime ferrous sulfate 324 mg (65 mg iron) Tablet,Delayed Release (Dr/Ec) 324 mg PO DAILY tamsulosin [Flomax] 0.4 mg Capsule 0.4 mg PO HS cetirizine 10 mg Tablet 10 mg PO DAILY gabapentin 300 mg Capsule 300 mg PO BID spironolactone 25 mg tablet 12.5 mg PO DAILY fluticasone propionate [Allergy Relief (fluticasone)] 50 mcg/actuation Spra y,Suspension See Rx Instructions .ROUTE .COMPLEX Rx Instructions: 2 SPRAY PER NOSTRIL TWICE A DAY lidocaine [Lidocaine Pain Relief] 4 % adhesive patch,medicated 1 patch topical DAILY PRN (Reason: pain) triamcinolone acetonide 0.1 % cream 1 applic topical DAILY hydrocortisone [Anti-Itch (HC)] 1 % cream 1 applic topical DAILY PRN (Reason: itching) diclofenac sodium 3 % gel 1 applic topical ONCE PRN (Reason: pain) Eucerin Cream 1 applic topical DAILY albuterol sulfate 2.5 mg /3 mL (0.083 %) solution for nebulization 2.5 mg inhalation QID bumetanide 0.5 mg tablet 1 mg PO BID Qty: 30 0RF Lactobacillus Acidoph-L.Bulgar [Lactinex] 500 mg tablet extended release 24 hr 500 mg PO DAILY Qty: 30 0RF metformin 500 mg tablet extended release 24 hr 500 mg PO DAILY Qty: 30 0RF baclofen 10 mg tablet See Rx Instructions .ROUTE .COMPLEX Qty: 90 1RF Dose Instruction: TAKE 1 TABLET (10MG) BY MOUTH EVERY DAY AT BEDTIME Rx Instructions: TAKE 1 TABLET (10MG) BY MOUTH EVERY DAY AT BEDTIME Eliquis 5 mg tablet 5 mg PO BID Qty: 180 1RF Rx Instructions: TAKE 1 TABLET BY MOUTH TWICE A DAY roflumilast [Daliresp] 500 mcg tablet 500 mcg PO DAILY 90 Days Qty: 90 3RF Rx Instructions: TAKE 1 TABLET BY MOUTH EVERY DAY Date of admission: 05/28/24 15:14 Primary Care Provider: Cleo Funk Admitting Provider: Sergio Bellamy Attending physician on admission: Elsa Arce Condition: Improved Quality VTE Prophylaxis VTE prophylaxis: pharmacologic ordered Hospitalist MIPS Heart Failure (Exclusion) Patient has history of Heart Transplant or Left Ventricular Assistive Device?: No IF YES, STOP HERE Heart Failure (Qualifier) Patient has current or prior documentation of LVEF less than or equal to 40%, or mod/servere depressed LVSF?: No IF NO, STOP HERE
--- NOTE | 2024-06-05 13:00 | PC.NURSE ---
Discharge instructions given to both patient and patient's . Both voiced understanding. Personal belongings sent home with patient. Patient left unit in w/c accompanied by nurse and patient's . Patient left hospital grounds in privately owned vehicle.
--- NOTE | 2024-06-07 09:38 | PC.NURSE ---
Discharge call back completed, doing well, no questions regarding dc instructions
== END 2024-06-05 13:00 | disposition home health service (06) | DRG 948 ==
PROVIDERS: Admitting Provider Internal Medicine; PCP Family Medicine; Visit Provider Nurse Practitioner Acute Care
DX: R53.1 Weakness (principal); I50.32 Chronic diastolic (congestive) heart failure; J96.11 Chronic respiratory failure with hypoxia; N17.9 Acute kidney failure, unspecified; I48.0 Paroxysmal atrial fibrillation; I87.2 Venous insufficiency (chronic) (peripheral); J44.9 Chronic obstructive pulmonary disease, unspecified; N18.30 Chronic kidney disease, stage 3 unspecified; N40.1 Benign prostatic hyperplasia with lower urinary tract symptoms; R33.8 Other retention of urine; D50.9 Iron deficiency anemia, unspecified; K75.81 Nonalcoholic steatohepatitis (NASH); K74.60 Unspecified cirrhosis of liver; K21.9 Gastro-esophageal reflux disease without esophagitis; G47.33 Obstructive sleep apnea (adult) (pediatric); Z96.643 Presence of artificial hip joint, bilateral; Z86.73 Personal history of transient ischemic attack (TIA), and cerebral infarction without residual deficits; Z79.01 Long term (current) use of anticoagulants; Z86.718 Personal history of other venous thrombosis and embolism; Z87.891 Personal history of nicotine dependence; Z79.82 Long term (current) use of aspirin; D69.6 Thrombocytopenia, unspecified
CPT/HCPCS: 36415; 80053; 85025; 85027; 85055; 94640; 97110; 97161; 97165; 97530; 97535; A9270

== ENCOUNTER 2024-10-21 10:50 | Emergency (ER) | payer MEDICARE, SELFPAY ==
--- NOTE | ~2024-10-21 | XR_ITS ---
AP view of the pelvis and AP and lateral views of the left hip Clinical history: Pain Findings: No acute fracture or dislocation is seen. Bilateral hip arthroplasties are in place. There is heterotopic ossification about the right greater trochanter. Soft tissues are otherwise unremarkab le. Impression: No acute abnormality. 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 Reviewed, dictated and finalized at location . Impression: No acute abnormality. 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
[2024-10-21 10:50] VITALS: BP 107/83; PULSE 89; RESP 18; TEMP 37.1; O2SAT 98
--- OUTSIDE RECORDS SUMMARY | 2024-10-21 11:11 | XMS_ITS | Clinical Summary ---
Author Organization [facility] Address [address] [place] [address] Care Team Providers Care Billing Checker Name Role Phone FunkCleo DO Primary Care Provider [phone] Source Comments [facility],non-owned Affiliates and Associated Physician Practices is amultiple site organization consisting of ambulatory clinics and hospital sitesin [place], [place], [place] and [place]. This disclosure is being madepursuant to the Care Everywhere program and may not contain all information available regarding this patient. Last updated 18.[facility] Birthday Gorilla Allergies Active Allergy Reactions Criticality Noted Date Comments Peppers GI Discomfort 10/20/2021 Green and red peppers Levofloxacin Eye Itching 04/24/2019 red around the eyes , puffy, itchy Penicillins Skin Reactions,Swelling Medium 07/14/2017 Scopolamine Other,MECHANOTHERAPIST Dysfunction 02/07/2019 delirium Tobramycin Eye Itching 10/23/2019 red around the eyes, puffy, itchy Medications * Be aware that medications may not be up to date on this document. Alwaysverify current medications with the patient. acetaminophen (TYLENOL) 325 MG tabletIndicatio ns:Other cirrhosis of liver (HCC) Take 2 (two) tablets by mouth every 4 hours as needed Active tamsulosin (FLOMAX) 0.4 MG capsuleIndicati ons:Other cirrhosis of liver (HCC) Take 1 (one) capsule by mouth at bedtime 1 8 Active roflumilast (DALIRESP) 500 MCG tablet Take [...] (two) puffs by mouth 2 times daily 2 Active Pyridoxine HCl (VITAMIN B-6 PO) Take 100 mg by mouth once daily Active magnesium oxide (Mag-Ox) 400 MG tablet Take 1 (one) tablet by mouth 2 times daily Active spironolactone (Aldactone) 25 MG tablet Take 0.5 (one-half) tablet by mouth once daily 1 Active Oxygen 2 L Active vitamin D3 (Cholecalcifero l) 25 MCG (1000 UNITS) tablet Take 1 (one) tablet by mouth once daily Active albuterol HFA (Proventil; Ventolin; Proair) 108 (90 Base) MCG/ACT inhaler Inhale 2 (two) puffs by mouth as needed for Shortness of Breath Active folic acid 400 MCG tablet Take 1 (one) tablet by mouth once daily Active fluticasone propionate (Flonase) 50 MCG/ACT nasal spray [place] 1 (one) spray into each nostril once daily Active omeprazole (PriLOSEC) 40 MG capsule Take 1 (one) capsule by mouth daily before breakfast Active albuterol-iprat ropium (Duo-Neb) 0.5-2.5 (3) MG/3ML nebulizer solution Inhale 3 mL by mouth 4 times daily Active Other (Patient uses variety of topicals...Eucer in, triamcinolone, hydrocortisone) Active hydrOXYzine HCl (Atarax) 25 MG tablet Take 1 (one) tablet by mouth 2 times daily for 30 days 4 Active venlafaxine (Effexor) 37.5 MG tablet Take 1 (one) tablet by mouth once daily for 30 days 4 Active Additional Information Patient not taking.Reported on 09/19/2024 lactobacillus (Lactinex) PACK granules Take 1 (one) packet by mouth 3 times daily 4 Active senna (Senokot) 8.6 MG tablet Take 1 (one) tablet by mouth 2 times daily as needed for Constipation 4 Active Additional Information Patient not taking.Reported on 09/19/2024 rifAXIMin (Xifaxan) 550 MG tablet Take 1 (one) tablet by mouth 2 times daily 4 Active Additional Information Patient not taking.Reported on 09/19/2024 gabapentin (Neurontin) 300 MG capsule Take 1 (one) capsule by mouth 2 times daily 4 Active budesonide (Pulmicort) 0.5 MG/2ML nebulizer suspension Inhale 2 mL by mouth 2 times daily 5 Active Active Problems Problem Noted Date Diagnosed Date [...] Encounters Date Type Department Care Team Description 09/19/2024 2:00 PM CDT Office Visit [facility] - Orthopedic Surgery [facility] [place] [address] Larry Alexander MD Primary osteoarthritis of left knee (Primary Dx) 09/19/2024 Travel 08/23/2024 12:45 PM CDT - 08/23/2024 1:15 PM CDT Surgery [facility] [address] [place] [phone] Twin Miller MD EGD w/ alexus--stay on eliquis 08/23/2024 12:43 PM CDT Anesthesia Event [facility] [address] [place] [phone] Mónica Gold MD 08/23/2024 11:13 AM CDT - 08/23/2024 2:00 PM CDT Hospital Encounter [facility] OP [address] [place] [phone] Twin Miller MD Surgery General Discharge Disposition: Home or Self Care 08/16/2024 Patient Outreach [facility] [address] [place] [phone] Guadalupe Rick, RN Pre-op Instructions from Last 3 Months Immunizations Immunization Administration Dates Next Due Covid Pfizer primary [...] Recorded Patient Health Questionnaire-2 Score 1 05/15/2024 [facility] - Occupational Stress [...] at Not on file Legal 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 Gender Identity Not on file Sexual Orientation Not on file Last Filed Vital Signs Vital Sign Reading Time Taken Comments Blood Pressure 137/84 08/23/2024 1:30 PM CDT Pulse 64 08/23/2024 1:30 PM CDT Temperature 36 C (96.8 F) 08/23/2024 12:59 PM CDT Respiratory Rate 12 08/23/2024 1:30 PM CDT Oxygen Saturation 100% 08/23/2024 1:30 PM CDT Inhaled Oxygen Concentration 21% 10/25/2023 1 1:35 PM CDT Weight 122.5 kg (270 lb) 08/23/2024 11:30 AM CDT Height 180.3 cm (5' 11 ) 08/23/2024 11:30 AM CDT Body Mass Index 37.66 08/23/2024 11:30 AM CDT Plan of Treatment Upcoming Encounters Date Type Department Care Team (Late st Contact Info) Description 12/25/2024 1:30 PM CDT Office Visit [facility] - Orthopedic Surgery [address] [place] [phone] Larry Alexander MD [address] [facility] [address] [place] [address] 03/11/2025 9:30 AM CDT Appointment [facility] [id number] [place] [phone] Twin Miller MD [address] [place] [address] [place] [address] 03/11/2025 10:15 AM CDT Appointment [facility] OP DRAW STATION [address] [place] [phone] Twin Miller MD [address] [place] [address] [address] [place] [address] 03/11/2025 11:00 AM CDT Office Visit [facility] - GI [address] [place] [address], [place] [address] Twin Miller MD [address] [place] [address] [address] [place] [address] Health Maintenance Due Date Last Done Comments COLOGUARD (AGES 45-75) - COLON CA SCREENING 1950 COLON MONITORING 1950 COLONOSCOPY - COLON CA SCREENING 1950 CT COLONOGRAPHY - COLON CA SCREENING 1950 Colorectal Cancer Screening 1950 FIT - COLON CA SCREENING 1950 FLEX SIG - COLON CA SCREENING 1950 DTAP/TDAP/TD VACCINES (1 - Tdap) 11/11/1967 PNEUMOCOCCAL VACCINE 50+ (1 of 2 - PCV) 11/11/1967 ZOSTER VACCINE (1 of 2) 1998 HEPATITIS B VACCINE (1 of 3 - Risk 3-dose series) 2008 Respiratory Syncytial Virus (RSV) Vaccine Pt: or over 60 yrs (1 - 1-dose 75+ series) 11/11/2023 COVID-19 VACCINE ( season) 2024 06/13/2023, 07/21/2022, 03/15/2021, Additional history exists DEPRESSION SCREENING 06/06/2024 05/15/2024 MEDICARE AWV CALENDAR YEAR 2024 INFLUENZA VACCINE (Season Ended) 2025 03/10/2023, 03/20/2022, 03/15/2021, Additional history exists HEPATITIS C SCREENING Completed 07/14/2017 HIB VACCINE Aged Out No longer eligi ble based on patient's age to complete this topic HPV VACCINE Aged Out No longer eligi ble based on patient's age to complete this topic MENINGOCOCCAL (Group B) VACCINE SHARED DECISION-MAKING Aged Out No longer eligible based on patient's age to complete this topic MENINGOCOCCAL GROUPS A/C/Y/W VACCINE Aged Out No longer eligible based on patient's age to complete this topic Goals Goal Patient Goal Type Associated Problems Recent Progress Patient-Stated? Author Medication Management General On track( 025 12:17 PM DOUGH SHEETER) No Monty Gentile, RN Note: Expected end [...] you. Interventions: Medical Devices Implanted Type Area Slot Ambassador Device Identifier Shelf Expiration Date Model / Serial / Lot Trident 10 Deg X 3 Insert 36mm Id Implanted:Qty: 1 on 02/08/2019 by Larry Alexander MD at [facility] Hip [employer] 06/23/2021 623-100 [id number] / / [id number] Description:36MM POLYETHYLEN E INSERT C-Taper Cocr Lfit Head 36mm/0 Implanted:Qty: 1 on 02/08/2019 by Larry Alexander MD at [facility] Hip [employer] 02/12/2023 [id number] / / [id number] Description:LEFT FEMORAL HEA D 36MM Procedures Procedure Name Priority Date/Time Associated Diagnosis Comments AR DRAIN/INJECT LARGE JOINT/BURSA Routine 09/19/2024 1:43 PM CDT Primary osteoarthritis of left knee PATHOLOGY TISSUE Routine 08/23/2024 12:4 9 PM CDT Cirrhosis of liver without ascites, unspecified hepatic cirrhosis type EGD Routine 08/23/2024 12:39 PM CDT AR ED EGD FLEX TRANSORAL DX 08/23/2024 12:38 PM CDT Cirrhosis of liver without ascites, unspecified hepatic cirrhosis type Special Needs Upper endoscopy Received: Today Viktoriya Kemp RN P [facility] Schedulers - Endoscopy Pool Good afternoon, Please schedule first available with Dr. Miller. Alma Delia Abarca RN Received Date Received Time Jul 09, 2024 12:42 PM HEPATITIS C ANTIBODY Routine 07/14/2017 10:11 PM DOUGH SHEETER from Last 3 Months or Most Recently Relevant to Health Maintenance Results * AR DRAIN/INJECT LARGE JOINT/BURSA (09/19/2024 1:43 PM CDT) Narrative Larry Alexander MD - 09/19/2024 1:43 PM CDT Larry Alexander MD 09/19/2024 2:30 PM Orthopaedic Surgery Procedure Note Mason Jang [id number] Diagnosis: Left knee pain Procedure: Injection of corticosteroid into the left knee Indications: Mason Jang is a 73 year old male who [...] for the entire procedure Larry Alexander MD 09/19/2024 1:43 PM Larry Alexander MD PROCEDURE/MINOR SURGICAL OR DERABLES Final Result * PATHOLOGY TISSUE (08/23/2024 12:49 PM CDT) Case Report Surgical Pathology Report Case: [id number] Authorizing Provider: Angela Twin Torojames, Collected: 08/23/2024 12:49 PM Ordering Location: [facility] Received: 08/23/2024 01:34 PM Pathologist: Paz Claudio MD Specimen: Gastric, Gastric biopsies r/o h.pylori 09/02/2024 3:20 PM CDT [facility] Final Diagnosis Stomach, r/o H. pylori, biopsy (A): - Oxyntic mucosa: proton pump inhibitor effect - Antral mucosa: chronic gastropathy - Negative for H. pylori on H and E and on H. pylori immunostain 09/02/2024 3:20 PM CDT [facility] Microscopic Description and Comment Microscopic examination substantiates the final diagnosis. Controls stained appropriately. 09/02/2024 3:20 PM CDT [facility] Clinical History 73 year old man with cirrhosis, esophageal varices. EGD: moderate inflammation, friable granular mucosa in antrum. Also, portal hypertensive gastropathy. 09/02/2024 3:20 PM CDT [facility] Gross Description The requisition and specimen(s) are identified with the patient's name Mason Jang. Received in formalin, specimen A , are 4 pink-poe tissues, 0.2-0.3 cm in greatest dimension and 1.0 x 0.2 x 0.2 cm in aggregate, submitted in toto in cassette A1. DF 09/02/2024 3:20 PM CDT [facility] Pathologist Location at [facility] 09/02/2024 3:20 PM CDT [facility] Disclaimer The performance characteristics of all immunohistochemical and indirect immunofluorescence stains (if any) cited in this report were determined by the Histopathology Laboratory of [facility]. Some of these tests were developed [...] and interpreted by the attending (teaching) pathologist. 09/02/2024 3:20 PM CDT [facility] Embedded Images 09/02/2024 3:20 PM CDT [facility] Biopsy, NOS GASTRIC CONTENTS SPECIMEN / Unknown 08/23/2024 12:49 PM CDT 08/23/2024 1:34 PM CDT us wTin Miller MD LAB - PATHOLOGY/CYTOLO GY ORDERABLES Final Result [facility] [address] [place] [address], [facility] [phone] * EGD (08/23/2024 12:39 PM CDT) Report Endoscopy POC Endoscopy Department Report _ Patient Name: Mason Jang Procedure Date: 08/23/2024 12:39 PM Date of : 1950 Classification: Outpatient Gender: Male Ethnicity: Not or Race: White _ Providers: Twin Trejo MD: Procedure: Upper GI endoscopy Indications: Esophageal varices Medications: Monitored Anesthesia Care Description of Procedure: After obtaining informed consent, the endoscope was passed under direct vision. Throughout the procedure, the patient's blood pressure, pulse, and oxygen saturations were monitored continuously. The Endoscope was introduced through the mouth, and advanced to the second part of duodenum. The upper GI endoscopy was accomplished without difficulty. The patient tolerated the procedure well. Findings: Grade I, small (< 5 mm) varices were found in the lower third of the esophagus. Localized moderate inflammation characterized by erosions, erythema, friability and granularity was found in the gastric antrum. Biopsies were taken with a cold forceps for Helicobacter pylori testing. Mild portal hypertensive gastropathy was found in the gastric body. The examined duodenum was normal. Estimated Blood Loss: Estimated blood loss: none. Complications: No immediate complications. Impression: - Grade I and small (< 5 mm) esophageal varices. - Gastritis. Biopsied. - Portal hypertensive gastropathy. - Normal examined duodenum. Recommendation: - Await pathology results. - Repeat upper endoscopy in 1 year for surveillance. Attending Participation: I personally performed the entire procedure. Procedure Code(s): --- Professional --- 65428, Esophagogastroduo denoscopy, flexible, transoral; with biopsy, single or multiple Diagnosis Code(s): --- Professional --- I85.00, Esophageal varices without bleeding K29.70, Gastritis, unspecified, without bleeding K76.6, Portal hypertension K31.89, Other diseases of stomach and duodenum CPT copyright 2021 [employer]. All rights reserved. The codes documented in this report are preliminary and upon certified medical records coder review may be revised to meet current compliance requirements. Twin Miller, 08/23/2024 12:55:22 PM Note Initiated On: 08/23/2024 12:39 PM Number of Addenda: [id number] [place] [address] PROVATION 08/23/2024 12:3 9 PM CDT us Twin Miller MD GI PROCEDURE ORDERABLE S Edited Result - Final [facility] PROVATION * HEPATITIS C ANTIBODY (07/14/2017 10:11 PM DOUGH SHEETER) Hepatitis C Antibody Non-react marlee Non-reac tive [facility] Comment: Hepatitis C Antibody screen indicates no serologic evidence of past or current infection with Hepatitis C Virus. Patients with unexplained liver disease who are immunocompromised or suspected of having acute Hepatitis C infection may benefit from Nucleic Acid Test (SUNIL) for Hepatitis C Viral RNA to confirm Hepatitis C status. 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 Comment:-rectal screen 04/201904/29/2019 10/17/[address] [place] [place] [address] [employer] MEDICARE ADV SELF PAY NO INSURANCE Member Subscriber Plan / Payer (Ef fective for All Dates) Name:Mason Jang Member ID:Not on file Relation to Subscriber:Not on file Name:MASON JANG Subscriber ID:Not on file (Home) Address: [place] [address] Payer ID:Not on file Group ID:Not on file Type:Self Pay Address: [place], [place] [employer] Advance Directives * Full Code (Latest Code [...] 2:01 PM 09/09/2017 2:08 PM Care Teams Billing Checker Relationship Specialty Start Date End Date Cleo Funk DO [address] [place] [address] PCP - General Family Medicine 05/15/24
[2024-10-21] MEDS: HYDROcodone/acetaminophen (*CRX) 5-325 MG TABLET 1 TAB PO (11:16)
--- NOTE | 2024-10-21 11:28 | ED_ITS ---
HPI - Extremity Problem General Chief complaint: Extremity Problem,Nontraumatic Stated complaint: hip pain Time Seen by Provider: 10/21/24 10:57 History of Present Illness HPI Narrative: Patient is a 73-year-old male who presents ER with pain to left hip. Worsening over last 2 days. He had done physical therapy where he was walking with parallel bars 2 days ago. No falls. No fevers or chills or sweats. Has chronic weakness and discomfort to the left hip since having a back surgery related to infection 10 years ago. Patient also had a left hip replacement in 2008. Related Data Home Medications Medication Instructions Recorded Confirmed Last Taken Type ferrous sulfate 324 mg (65 mg 324 mg PO DAILY 04/05/19 10/08/24 05/28/24 09:55 History iron) tablet,delayed release tamsulosin 0.4 mg capsule (Flomax) 0.4 mg PO HS 04/05/19 10/08/24 05/27/24 21:20 History aspirin 81 mg tablet,delayed 81 mg PO DAILY 05/21/19 10/08/24 05/28/24 09:55 History release cetirizine 10 mg tablet 10 mg PO DAILY 08/04/19 10/08/24 05/28/24 09:55 History acetaminophen 325 mg capsule 650 mg PO Q4H PRN Pain 03/17/20 10/08/24 05/27/24 21:20 History magnesium oxide 400 mg PO BID 03/04/21 10/08/24 05/28/24 09:55 History pyridoxine (vitamin B6) 100 mg 100 mg PO DAILY 03/04/21 10/08/24 05/28/24 09:55 History tablet cholecalciferol (vitamin D3) 25 25 mcg PO DAILY 03/03/23 10/08/24 05/28/24 09:55 History mcg (1,000 unit) capsule folic acid 400 mcg tablet 0.4 mg PO DAILY 08/23/23 10/08/24 05/28/24 09:55 History omeprazole 40 mg capsule,delayed 40 mg PO DAILY 12/27/23 10/08/24 05/28/24 09:55 History release fluticasone propionate 50 See Rx Instructions .Route .COMPLEX 01/19/24 10/08/24 05/28/24 09:55 History mcg/actuation nasal spray,suspension (Allergy Relief (fluticasone)) gabapentin 300 mg capsule 300 mg PO BID 01/19/24 10/08/24 05/28/24 09:55 History mesalamine 4 gram/60 mL enema 4 g RECTAL PRN PRN Diarrhea 02/15/24 10/08/24 05/19/24 History (Rowasa) benzonatate 200 mg capsule 200 mg PO TID PRN cough 05/14/24 10/08/24 Unknown History albuterol sulfate 2.5 mg/3 mL 2.5 mg inhalation QID shortness of 05/20/24 10/08/24 05/20/24 History (0.083 %) solution for nebulization breath or wheezing diclofenac sodium 3 % topical gel 1 applic topical ONCE PRN pain 05/20/24 10/08/24 Unknown History hydrocortisone 1 % topical cream 1 applic topical DAILY PRN itching 05/20/24 10/08/24 Unknown History (Anti-Itch (hydrocortisone)) lanolin alcohols-mineral 1 applic topical DAILY 05/20/24 10/08/24 05/28/24 10:10 History oil-w.petrolatum-ceresin topical cream (Eucerin topical cream) lidocaine 4 % topical patch 1 patch topical DAILY PRN pain 05/20/24 10/08/24 Unknown History (Lidocaine Pain Relief) triamcinolone acetonide 0.1 % 1 applic topical DAILY 05/20/24 10/08/24 05/28/24 10:10 History topical cream L.acidoph,paracasei,B.animalis 10 cell PO 10/08/24 10/08/24 Unknown History billion cell capsule budesonide 0.5 mg/2 mL suspension 0.5 mg inhalation BID 10/08/24 10/08/24 Unknown History for nebulization ipratropium 0.5 mg-albuterol 3 mg 3 ml inhalation Q6H PRN 10/08/24 10/08/24 Unknown History (2.5 mg base)/3 mL nebulization soln prednisone 10 mg tablet 10 mg PO DIRECTED 10/08/24 10/08/24 Unknown History Allergies Allergy/AdvReac Type Severity Reaction Status Date / Time clindamycin Allergy Intermediate Rash Verified 10/08/24 14:00 levofloxacin Allergy Intermediate Swelling Verified 10/08/24 14:00 of the Eye Penicillins Allergy Intermediate Hives Verified 10/08/24 14:00 scopolamine Allergy Mild Hallucinati Verified 10/08/24 14:00 ng tobramycin Allergy Mild EYE REDNESS Verified 10/08/24 14:00 pepper (genus Capsicum) AdvReac Intermediate Nausea and Verified 10/08/24 14:00 Vomiting dust mites Allergy Swelling Uncoded 09/06/24 10:07 cats AdvReac Mild REDNESS OF Uncoded 09/06/24 10:07 THE EYES/WATERING Review of Systems 2 Review of Systems: All systems reviewed & are unremarkable except as noted in HPI and below Constitutional: Constitutional: Reports no additional constitutional complaints Cardiovascular: Cardiovascular: Reports no additional cardiovascular complaints Respiratory: Respiratory: Reports no additional respiratory complaints Gastrointestinal: Gastrointestinal: Reports no additional gastrointestinal complaints Musculoskeletal: Musculoskeletal: Reports no additional musculoskeletal complaints [facility] Past Medical History Medical History Chronic anemia Liver cirrhosis secondary to nonalcoholic steatohepatitis (RAYGOZA) Methicillin resistant Staphylococcus aureus infection The patient had a spinal abscess L1-L2 complicated was septicemia and then had 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 On long-term doxycycline. Chronic venous stasis dermatitis of both lower extremities Duodenal ulcer Iron (Fe) deficiency anemia Chronic anticoagulation Deep venous thrombosis Cerebrovascular accident Gastroesophageal reflux disease Chronic obstructive pulmonary disease Benign prostatic hyperplasia Obstructive sleep apnea treated with BiPAP with bleed in oxygen of 2 L Paroxysmal atrial fibrillation Obesity (BMI 30-39.9) Eczema Chronic kidney disease Chronic diastolic heart failure Echocardiogram 10/2023 demonstrated EF of 60-65% grade 1 diastolic dysfunction, atrial fibrillation, by atrial enlargement difficult study Pneumothorax on left Surgical History Surgical History History of cataract extraction with lens replacement History of bilateral hip replacements History of colonoscopy with polypectomy History of tracheostomy Status post excision of lipoma Neck. History of back surgery History of revision of total replacement of hip joint Family History Family History Mother Family history of cardiovascular disease Family history of coronary artery disease Father Family history of liver disease Sibling Hypertension Cerebrovascular accident Chronic obstructive pulmonary disease Social History Social History Social History: Surrogate medical decision maker: Trinity Keys (Cathy), spouse. Code status: Full code. Smoking packs per day: 1 Smoking cigarettes per day: 20.0 Years smoked: 7 Smoking pack-years: 7.00 Smoking status: Former smoker Tobacco type: cigarettes Smokeless tobacco user: chewing tobacco Smoking end date: 06/06/81 Additional smoking assessment comments: He quit smoking when he was told he had COPD. Alcohol intake: never Substance use: never Substance use type: does not use Do You Feel Safe in your Home?: Yes Lack of Transportation: No Lack of Food: Never True Current Housing: I Have Housing Concerned About Future Housing: No Difficulty Paying Gas/Electric Bills: No Difficulty Paying for Meds: No Currently Unemployed: No Education: Bachelor's Degree Difficulty w/ Childcare or Family Care: No Living arrangements: with family Additional living arrangements comments: Lives with spouse in [place]. They have been since 1973. They have a daughter and a son. 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 [place] [employer] . Spiritual care concerns: No Agree to blood products: Yes Exam 2 Narrative: GENERAL: Well-appearing, well-nourished, and in no acute distress. HEAD: Normocephalic, atraumatic. ENT: Mucous membranes moist. CHEST: Clear to auscultation. No respiratory distress. HEART: Regular rate and rhythm. Normal peripheral pulses. EXTREMITIES: Limited range of motion left lower extremity at the hip and knee which patient reports is chronic. He reports he is maintaining his normal range of motion. Has mild discomfort in left lateral hip when he does this. No reproducible tenderness with palpation to the left hip. Tenderness in superior left buttock which reproduces his pain. SKIN: Warm, dry, no rash. NEURO: Alert and oriented x3. PSYCH: Normal mood and affect. Course Course Emergency Course: Discussed lab and imaging results. Chronically elevated white count. Patient reports pain was improved with [place]. Discharge home with supportive care. Recommend follow-up with PCP. Return if worsening pain. Vital Signs Vital signs: Vital Signs Temperature 98.7 F 10/21/24 10:50 Pulse Rate 89 10/21/24 10:50 Respiratory Rate 18 10/21/24 10:50 Blood Pressure 107/83 10/21/24 10:50 Pulse Oximetry 98 10/21/24 10:50 Oxygen Delivery Room Air 10/21/24 10:50 Temperature 98.7 F 10/21/24 10:50 Pulse Rate 89 10/21/24 10:50 Respiratory Rate 18 10/21/24 10:50 Blood Pressure 107/83 10/21/24 10:50 Pulse Oximetry 98 10/21/24 10:50 Oxygen Delivery Room Air 10/21/24 10:50 MDM - Extremity (Nontraumatic) Lab Data 10/21/24 11:23 10/21/24 11:23 Labs: Lab Results 10/21/24 Range/Units 11:23 WBC 11.4 H (4.5-10.0) K/mm3 RBC 4.25 L (4.6-6.20) M/mm3 Hgb 13.2 L (14.0-18.0) g/dL Hct 41.9 L (42.0-52.0) % MCV 98.6 (80-100) fl MCH 31.1 (26-34) pg MCHC 31.5 L (32-36) g/dl RDW 14.9 H (11.5-14.5) % Plt Count 88 L (150-375) k/mm3 MPV 12.2 H (7.4-10.4) fl Immature Gran % (Auto) 2.1 H (0-0.5) % Neut % (Auto) 80.5 H (45.5-73.1) % Lymph % (Auto) 6.5 L (18.3-44.2) % Lee % (Auto) 8.2 (2.6-8.5) % Eos % (Auto) 2.3 (0-4.4) % Baso % (Auto) 0.4 (0.2-1.2) % Lymph # (Auto) 0.74 L (0.9-3.2) K/mm3 Lee # (Auto) 0.9 H (0.1-0.6) K/mm3 Eos # (Auto) 0.3 (0-0.3) K/mm3 Baso # (Auto) 0.0 (0.0-0.1) K/mm3 Abs Immat Gran (auto) 0.24 H (0.00-0.031) K/mm3 Absolute Neuts (auto) 9.2 H (1.3-6.7) K/mm3 Absolute Nucleated RBC 0.000 (0.0-0.012) K/mm3 Band Neutrophils % Not Reportable Nucleated RBC % 0.0 (0.0-0.2) % Platelet Estimate Decreased (Adequate) % Immature Plt Fraction 10.7 (0.9-11.2) % Anisocytosis 1+ Prasanna Cells 1+ Schistocytes None seen Sodium 134 L (137-145) mmol/L Potassium 4.4 (3.4-5.0) mmol/L Chloride 101 (98-107) mmol/L Carbon Dioxide 30 (22-30) mmol/L Anion Gap 3 L (4-12) mmol/L BUN 56 H (9-20) mg/dL Creatinine 1.65 H (0.7-1.3) mg/dL Estim Creat Clear Calc 44 ml/min Estimated GFR 41 L (59 - ) Glucose 184 H (65-110) mg/dL Calcium 9.2 (8.4-10.2) mg/dL Total Bilirubin 1.2 (0.2-1.3) mg/dL AST 35 (17-59) U/L ALT 41 (6-50) U/L Alkaline Phosphatase 83 (38-126) U/L Total Protein 6.0 L (6.3-8.2) g/dL Albumin 3.5 (3.5-5.1) g/dL Imaging Data Radiologist's impression: ITS Impressions Hip/Pelvis X-Ray 10/21/24 11:25 Impression: No acute abnormality. 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 Discharge Plan Discharge Clinical Impression: Low back pain Patient Disposition: Home Condition: Stable Instructions: Low Back Strain (ED) Additional Instructions: Your tender over her buttock more than her hip. You have the same range of motion is he had previously. You have no new numbness or tingling. Please return to the emergency department if you develop severe pain that is not controlled by pain medications or if you are unable to walk because of pain or weakness. Return to the emergency department immediately if you develop fevers, loss of bowel or bladder control (dribbling of urine or having accidents you wouldn't normally have), inability to urinate, numbness of your genital or anal area, or weakness/numbness of your legs or arms as these could all be signs of a serious medical emergency. Patient Language: Fijian Prescriptions: New cyclobenzaprine 10 mg tablet 10 mg PO TID PRN (Reason: muscle spasm) Qty: 20 0RF acetaminophen 500 mg capsule 500 mg PO Q6H PRN (Reason: pain) Qty: 14 0RF No Action acetaminophen 325 mg capsule 650 mg PO Q4H PRN (Reason: Pain) cholecalciferol (vitamin D3) 25 mcg (1,000 unit) capsule 25 mcg PO DAILY folic acid 400 mcg tablet 0.4 mg PO DAILY (DME) nebulizer accessories Kit See Rx Instructions .Route Qty: 3 3RF Rx Instructions: As directed aspirin 81 mg tablet,delayed release (DR/EC) 81 mg PO DAILY (DME) Aerochamber MV Spacer See Rx Instructions .Route Qty: 10 0RF Rx Instructions: As directed pyridoxine (vitamin B6) 100 mg tablet 100 mg PO DAILY magnesium oxide 400 mg magnesium capsule 400 mg PO BID omeprazole 40 mg capsule,delayed release(DR/EC) 40 mg PO DAILY benzonatate 200 mg capsule 200 mg PO TID PRN (Reason: cough) mesalamine [Rowasa] 4 gram/60 mL enema 4 g RECTAL PRN PRN (Reason: Diarrhea) Patient Comments: Per patient the patient is using this once a day at nighttime baclofen 10 mg tablet See Rx Instructions .ROUTE .COMPLEX Qty: 90 1RF Dose Instruction: TAKE 1 TABLET (10MG) BY MOUTH EVERY DAY AT BEDTIME Rx Instructions: TAKE 1 TABLET (10MG) BY MOUTH EVERY DAY AT BEDTIME spironolactone 25 mg tablet 12.5 mg PO DAILY Qty: 45 3RF Eliquis 5 mg tablet 5 mg PO BID Qty: 180 1RF Rx Instructions: TAKE 1 TABLET BY MOUTH TWICE A DAY metoprolol succinate 50 mg tablet extended release 24 hr 50 mg PO DAILY Qty: 180 3RF doxycycline hyclate 100 mg capsule 100 mg PO DAILY Qty: 90 3RF L.acidoph,paracasei,B.animalis 10 billion cell capsule PO prednisone 10 mg tablet 10 mg PO DIRECTED Rx Instructions: see taper instructions budesonide 0.5 mg/2 mL suspension for nebulization 0.5 mg inhalation BID ipratropium-albuterol 0.5 mg-3 mg(2.5 mg base)/3 mL solution for nebulization 3 ml inhalation Q6H PRN ferrous sulfate 324 mg (65 mg iron) Tablet,Delayed Release (Dr/Ec) 324 mg PO DAILY tamsulosin [Flomax] 0.4 mg Capsule 0.4 mg PO HS cetirizine 10 mg Tablet 10 mg PO DAILY gabapentin 300 mg Capsule 300 mg PO BID fluticasone propionate [Allergy Relief (fluticasone)] 50 mcg/actuation [place],Suspension See Rx Instructions .ROUTE .COMPLEX Rx Instructions: 2 SPRAY PER NOSTRIL TWICE A DAY lidocaine [Lidocaine Pain Relief] 4 % adhesive patch,medicated 1 patch topical DAILY PRN (Reason: pain) triamcinolone acetonide 0.1 % cream 1 applic topical DAILY hydrocortisone [Anti-Itch (HC)] 1 % cream 1 applic topical DAILY PRN (Reason: itching) diclofenac sodium 3 % gel 1 applic topical ONCE PRN (Reason: pain) Eucerin Cream 1 applic topical DAILY albuterol sulfate 2.5 mg /3 mL (0.083 %) solution for nebulization 2.5 mg inhalation QID roflumilast [Daliresp] 500 mcg tablet 500 mcg PO DAILY 90 Days Qty: 90 3RF Rx Instructions: TAKE 1 TABLET BY MOUTH EVERY DAY bumetanide 0.5 mg tablet See Rx Instructions .ROUTE .COMPLEX Qty: 180 1RF Dose Instruction: TAKE 1 TABLET BY MOUTH TWICE A DAY Rx Instructions: TAKE 1 TABLET BY MOUTH TWICE A DAY Follow-up/Referrals: Cleo Funk DO [Primary Care Provider] - 1 Week
[2024-10-21 11:31] LABS: Basophils Percent Auto 0.4 % (0.2-1.2); Eosinophils Absolute Auto 0.3 K/mm3 (0-0.3); Eosinophils Percent Auto 2.3 % (0-4.4); Hematocrit 41.9 % (42.0-52.0); Hemoglobin 13.2 g/dL (14.0-18.0); Immature Granulocyte Absolute 0.24 K/mm3 (0.00-0.031); Immature Granulocyte Percent A 2.1 % (0-0.5); Immature Platelet Fraction Pct 10.7 % (0.9-11.2); Lymphocytes Absolute Auto 0.74 K/mm3 (0.9-3.2); Lymphocytes Percent Auto 6.5 % (18.3-44.2); Mean Corpuscular HGB Conc 31.5 g/dl (32-36); Mean Corpuscular Hemoglobin 31.1 pg (26-34); Mean Corpuscular Volume 98.6 fl (80-100); Mean Platelet Volume 12.2 fl (7.4-10.4); Monocytes Absolute Auto 0.9 K/mm3 (0.1-0.6); Monocytes Percent Auto 8.2 % (2.6-8.5); Neutrophils Absolute Auto 9.2 K/mm3 (1.3-6.7); Neutrophils Percent Auto 80.5 % (45.5-73.1); Platelet Count Result 88 k/mm3 (150-375); Red Blood Count 4.25 M/mm3 (4.6-6.20); Red Cell Distribution Width 14.9 % (11.5-14.5); White Blood Count 11.4 K/mm3 (4.5-10.0)
[2024-10-21 11:42] LABS: Alanine Aminotransferase 41 U/L (6-50); Albumin Level 3.5 g/dL (3.5-5.1); Alkaline Phosphatase 83 U/L (38-126); Anion Gap 3 mmol/L (4-12); Aspartate Amino Transferase 35 U/L (17-59); Bilirubin,Total 1.2 mg/dL (0.2-1.3); Blood Urea Nitrogen 56 mg/dL (9-20); Calcium 9.2 mg/dL (8.4-10.2); Carbon Dioxide 30 mmol/L (22-30); Chloride 101 mmol/L (98-107); Estimated CRCL calculation 44 ml/min; Estimated Glomerular Filt Rate 41; Glucose 184 mg/dL (65-110); Potassium 4.4 mmol/L (3.4-5.0); Sodium 134 mmol/L (137-145)
[2024-10-21 12:07] LABS: Anisocytosis 1+; Burr Cells 1+; Platelet Estimate Decreased (Adequate); Schistocytes None Seen
[2024-10-21 15:56] VITALS: BP 103/69; PULSE 77; RESP 20; TEMP 37; O2SAT 97
--- NOTE | 2024-10-21 15:58 | PC.NURSE ---
Pt and state pt does not need oxygen for ride home and is able to exit via POV, states only needs it when exerting himself, pt a&ox4. social media analyst made aware.
== END 2024-10-21 16:01 | disposition home or self-care (01) ==
PROVIDERS: Emergency Provider Emergency Medicine; PCP Family Medicine
DX: M54.50 Low back pain, unspecified (principal); M25.552 Pain in left hip; Z96.642 Presence of left artificial hip joint; Z79.82 Long term (current) use of aspirin; K21.9 Gastro-esophageal reflux disease without esophagitis; I48.0 Paroxysmal atrial fibrillation; Z79.01 Long term (current) use of anticoagulants; G47.33 Obstructive sleep apnea (adult) (pediatric); N18.9 Chronic kidney disease, unspecified; I50.32 Chronic diastolic (congestive) heart failure; Z87.891 Personal history of nicotine dependence
CPT/HCPCS: 36415; 73502; 80053; 85025; 85055; 99283; A9270

== ENCOUNTER 2024-10-26 08:08 | Outpatient (CLI) | payer MEDICARE, SELFPAY ==
--- OUTSIDE RECORDS SUMMARY | 2024-10-26 08:13 | XMS_ITS | Encounter Summary ---
Author Organization [facility] Healthcare Address [address] [place] [address] Care Team Providers Care Internship Coordinator Name Role Phone Briana Medeiros MD Primary Care Provider [phone] Napoleon Birmingham MD Primary Care Provider [phone] Cleo Funk DO Primary Care Provider + Encounter Details Date Type Department Care Team (Late st Contact Info) Description 10/24/2017 Telephone [facility] Physical Medicine and [facility] [place] [address] Katya Oliver, DONTAE Social History Tobacco Use Types Packs/Day Years Used Date Smoking Tobacco: Former Smokeless Tobacco: Never Alcohol Use Standard Drinks/Week Comments No 0 (1 standard drink = 0.6 oz pur e alcohol) Sex and Gender Information Value Date Recorded Sex Assigned at Not on file Legal Sex Male 11:24 AM [employer] Gender Identity Not on file Sexual Orientation [...] documented as of this encounter Care Teams Internship Coordinator Relationship Specialty Start Date End Date Briana Medeiros MD [address] [place] [address] PCP - General 07/06/12 03/24/22 Napoleon Birmingham MD [address] [place] [address] PCP - General Family Medicine 03/25/22 03/26/24 Cleo Funk DO [address] [place] [address] [place] [address] PCP - General Family Medicine 03/27/24 documented as of this encounter
--- OUTSIDE RECORDS SUMMARY | 2024-10-26 08:13 | XMS_ITS | Clinical Summary ---
Author Organization [facility] Address [address] [place] [address] Care Team Providers Care Energy Economist Name Role Phone FunkCleo DO Primary Care Provider [phone] Source Comments [facility],non-owned Affiliates and Associated Physician Practices is amultiple site organization consisting of ambulatory clinics and hospital sitesin [place], [place], [place] and [place]. This disclosure is being madepursuant to the Care Everywhere program and may not contain all information available regarding this patient. Last updated 18.[facility] Allergies Active Allergy Reactions Criticality Noted Date Comments Peppers GI Discomfort 10/20/2021 Green and red peppers Levofloxacin Eye Itching 04/24/2019 red around the eyes , puffy, itchy Penicillins Skin Reactions,Swelling Medium 07/14/2017 Scopolamine Other,WAYBILL CLERK Dysfunction 02/07/2019 delirium Tobramycin Eye Itching [...] fluticasone propionate (Flonase) 50 MCG/ACT nasal spray [place] 1 (one) spray into each nostril once [...] Description 09/19/2024 2:00 PM CDT Office Visit [facility] - Orthopedic Surgery [facility] [place] [address] Larry Alexander MD Primary osteoarthritis of left knee (Primary Dx) 09/19/2024 Travel 08/23/2024 12:45 PM CDT - 08/23/2024 1:15 PM CDT Surgery [facility] [address] [place] [phone] Twin Miller MD EGD w/ alexus--stay on eliquis 08/23/2024 12:43 PM CDT Anesthesia Event [facility] [address] [place] [phone] Mónica Gold MD 08/23/2024 11:13 AM CDT - 08/23/2024 2:00 PM CDT Hospital Encounter [facility] [place] [facility] [address] [place] [phone] Twin Miller MD Surgery General Discharge Disposition: Home or Self Care 08/16/2024 Patient Outreach [facility] [address] [place] [phone] Guadalupe Rick, RN Pre-op Instructions from Last [...] Recorded Patient Health Questionnaire-2 Score 1 05/15/2024 [facility] - Occupational [...] on file 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 Gender Identity Not on file Sexual [...] Description 12/25/2024 1:30 PM CDT Office Visit [facility] - Orthopedic Surgery [address] [place] [phone] Larry Alexander MD [address] [facility] [address] [place] [address] 03/11/2025 9:30 AM CDT Appointment [facility] [id number] [place] [phone] Twin Miller MD [address] [place] [address] [place] [address] 03/11/2025 10:15 AM CDT Appointment [facility] OP DRAW [facility]ATION [address] [place] [phone] Twin Miller MD [address] [place] [address] [address] [place] [address] 03/11/2025 11:00 AM CDT Office Visit [facility] - GI [address] [place] [address], [place] [address] Twin Miller MD [address] [place] [address] [address] [place] [address] Health Maintenance Due Date Last Done Comments [...] Management General On track( 025 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 Interventions: Medical Devices Implanted Type Area Route Deliverer Device Identifier Shelf Expiration Date Model / Serial / Lot Trident 10 Deg X 3 Insert 36mm Id Implanted:Qty: 1 on 02/08/2019 by Larry Alexander MD at [facility] [employer] 06/23/2021 623-100 36F / / [id number] Description:36MM POLYETHYLEN E INSERT C-Taper Cocr Lfit Head 36mm/0 Implanted:Qty: 1 on 02/08/2019 by Larry Alexander MD at [facility] [employer] 02/12/2023 06-3600 / / [id number] Description:LEFT FEMORAL HEA D 36MM Procedures Procedure Name Priority Date/Time Associated Diagnosis Comments CO DRAIN/INJECT LARGE JOINT/BURSA Routine 09/19/2024 1:43 PM CDT Primary osteoarthritis of left knee PATHOLOGY TISSUE Routine 08/23/2024 12:4 9 PM CDT Cirrhosis of liver without ascites, unspecified hepatic cirrhosis type EGD Routine 08/23/2024 12:39 PM CDT CO ED EGD FLEX TRANSORAL DX 08/23/2024 12:38 PM CDT Cirrhosis of liver without ascites, unspecified hepatic cirrhosis type Special Needs Upper endoscopy Received: Today Viktoriya Kemp RN P [facility] Schedulers - Endoscopy Pool Good afternoon, Please schedule first available with Dr. Miller. 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 from Last 3 Months or Most Recently Relevant to Health Maintenance Results * CO DRAIN/INJECT LARGE JOINT/BURSA (09/19/2024 1:43 PM CDT) Narrative Larry Alexander MD - 09/19/2024 1:43 PM CDT Larry Alexander MD 09/19/2024 2:30 PM Orthopaedic Surgery Procedure Note Mason Jang [id number] Diagnosis: Left knee pain Procedure: Injection of [...] CDT) Case Report Surgical Pathology Report Case: [id number] Authorizing Provider: Angela Twin Torojames, Collected: 08/23/2024 12:49 PM Ordering Location: [facility] Received: 08/23/2024 01:34 PM Pathologist: Paz Claudio MD Specimen: Gastric, Gastric biopsies r/o h.pylori 09/02/2024 3:20 PM CDT [facility] Final Diagnosis Stomach, r/o H. pylori, biopsy (A): - Oxyntic mucosa: proton pump inhibitor effect - Antral mucosa: chronic gastropathy - Negative for H. pylori on H and E and on H. pylori immunostain 09/02/2024 3:20 PM CDT [facility] LAB at 1520 CDT Microscopic Description and Comment Microscopic examination substantiates the final diagnosis. Controls stained appropriately. 09/02/2024 3:20 PM CDT [facility] Clinical History 73 year old man with cirrhosis, esophageal varices. EGD: moderate inflammation, friable granular mucosa in antrum. Also, portal hypertensive gastropathy. 09/02/2024 3:20 PM CDT [facility] Gross Description The requisition and specimen(s) are identified with the patient's name Mason Jang. Received in formalin, specimen A , are 4 pink-poe tissues, 0.2-0.3 cm in greatest dimension and 1.0 x 0.2 x 0.2 cm in aggregate, submitted in toto in cassette A1. DF 09/02/2024 3:20 PM CDT [facility] Pathologist Location at [facility] 09/02/2024 3:20 PM CDT [facility] Disclaimer The performance characteristics of all immunohistochemical and indirect immunofluorescence stains (if any) cited in this report were determined by the Histopathology Laboratory of [facility]. Some of these tests were [...] attending (teaching) pathologist. 09/02/2024 3:20 PM CDT [facility] Embedded Images 09/02/2024 3:20 PM CDT [facility] Biopsy, NOS GASTRIC CONTENTS SPECIMEN / Unknown 08/23/2024 12:49 PM CDT 08/23/2024 1:34 PM CDT us Twin Miller MD LAB - PATHOLOGY/CYTOLO GY ORDERABLES Final Result [facility] [address] [place] [address], [place] [phone] * EGD (08/23/2024 12:39 PM CDT) Report [...] entire procedure. Procedure Code(s): --- Professional --- 37068, Esophagogastroduo denoscopy, flexible, transoral; with biopsy, single or multiple Diagnosis Code(s): --- Professional --- I85.00, Esophageal varices without bleeding K29.70, Gastritis, unspecified, without bleeding K76.6, Portal hypertension K31.89, Other diseases of stomach and duodenum CPT copyright 2021 [employer]. All rights reserved. The codes documented in this report are preliminary and upon machinist brake review may be revised to meet current compliance requirements. 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 Patients with unexplained liver disease who are immunocompromised or suspected of having acute Hepatitis C infection may benefit from Nucleic Acid Test (SUNIL) for Hepatitis C Viral RNA to confirm Hepatitis C status. 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 Comment:-rectal screen 04/201904/29/2019 10/17/[address] [place] [address] [employer] MED[employer]ARE ADV SELF PAY NO INSURANCE Member Subscriber Plan / Payer (Ef fective for All Dates) Name:Mason Jang Member ID:Not on file Relation to Subscriber:Not on file Name:MASON JANG Subscriber ID:Not on file (Home) Address: [place] [address] Payer ID:Not on file Group ID:Not on file Type:Self Pay Address: [place], [place] [employer] Advance Directives * Full Code [...] 2:01 PM 09/09/2017 2:08 PM Care Teams Energy Economist Relationship Specialty Start Date End Date Cleo Funk DO [address] [place] [address] PCP - General Family Medicine 05/15/24
--- OUTSIDE RECORDS SUMMARY | 2024-10-26 08:13 | XMS_ITS | Clinical Summary ---
Author Organization [facility] [address] Address [address] [place] [address] Care Team Providers Care Railroad Conductor Name Role Phone Cleo Funk DO Primary Care Provider + Allergies Active Allergy Reactions Criticality Noted Date Comments Clindamycin Eye irritation Low 08/01/2023 Levofloxacin Unknown 04/24/2019 red around the eyes , puffy, itchy Penicillin Hives,Rash Medium 03/30/2013 Penicillins Pepper Stomach upset Low 10/20/2021 Green and red peppers Scopolamine Other (See comments),Delusions Medium 02/07/2019 delirium Tobramycin Swelling,Eye irritation Medium 10/23/2019 [...] by mouth daily. 30 tablet 8 Active tamsulosin (FLOMAX) 0.4 mg extended release capsule [...] day with meals. 90 tablet 8 Active oxygenIndication s:Dyspnea 2 L Active triamcinolone (KENALOG) 0.1 % cream [...] mg total) by mouth daily 1 Active GABAPENTIN ORAL Take 300 mg by mouth 2 (two) times a day Active FOLIC ACID ORAL Take 1 tablet by mouth daily 2 Active cholecalciferol 25 mcg (1,000 unit) tablet Take 2 tablets (2,000 Units total) by mouth daily Active magnesium oxide 400 mg magnesium capsule Take by mouth Active fluticasone propionate (FLONASE) 50 mcg/actuation nasal spray Administer 2 sprays into each nostril daily 4 Active mesalamine (ROWASA) 4 gram/60 mL enema INSERT 60MLS (4G) RECTALLY TWICE A DAY FOR 90 DAYS 4 Active vitamin B complex capsule Take 1 capsule by mouth daily 100 mg Active acidophilus-pect in, citrus 100 million cell-10 mg capsule Take by mouth 3 (three) times a day Active ipratropium-albu teroL (DUO-NEB) 0.5-2.5 mg/3 mL nebulizer solution Take 3 mL by nebulization 4 (four) times a day as needed for wheezing or shortness of breath 90 mL 11 5 026 Active budesonide (PULMICORT) 0.5 mg/2 mL nebulizer solution Take 2 mL (0.5 mg total) by nebulization 2 (two) times a day Rinse mouth with water after use. Do not swallow. 120 mL 11 5 Active predniSONE (DELTASONE) 10 mg tablet Take by mouth Active UNABLE TO FIND Cream for itching and other creams from dermatology Active Active Problems Problem Noted Date Diagnosed [...] therapy. Lungs are clear Hypercapnic respiratory failure 10/25/2017 Overview (10/25/2017): Tracheostomy successfully D cannulated. FiO2 to maintain a saturation 90%. Continue BiPAP at night. Assessment & Plan (11/05/2017 6:41 AM CDT): Successfully decannulated. Comfortable on room air. Doing well without BiPAP Diskitis 10/25/2017 Overview (10/25/2017): Debridement, completed antibiotic therapy for diskitis prior to his admission to [facility] Assessment & Plan (11/05/2017 6:40 AM CDT): Completed debridement, prolonged antibiotic therapy for an L1 diskitis. Continue physical therapy, pain control Pneumonia 10/25/2017 Assessment & Plan (11/09/2017 8:10 AM CDT): Completed treatment for pneumonia, empyema prior to transfer to [facility]. Finished Bactrim for stenotrophomonas pneumonia here. Continue to observe off antibiotics. Chronic atrial fibrillation 02/22/2017 Assessment & Plan (11/09/2017 8:12 AM CDT): Normal sinus rhythm by exam. Monitor for bleeding ( had bleeding around his tracheostomy, skin tears while at [facility]). Continue amiodarone, aspirin, Lipitor, metoprolol, apixaban Encounters Date Type Department Care Team Description 10/01/2024 1:45 PM CDT Office Visit [facility] Cardiology [address] [place] [address] [place] MD Chronic atrial fibrillation (HCC) (Primary Dx) 09/04/2024 3:18 AM CDT - 09/04/2024 11:59 PM CDT Hospital Encounter [facility] [address] [place] [id number] Discharge Disposition: Discharge to home or self care 09/04/2024 3:15 AM CDT - 09/04/2024 11:59 PM CDT Hospital Encounter [facility] [address] [place] [address] Discharge Disposition: Discharge to home or self care 09/03/2024 3:00 PM CDT Office Visit [facility] Pulmonary [address] [place] [address] for Advanced Medicine 8th [place] [address] [place] [address] Puneet Powell MD Chronic obstructive pulmonary disease, unspecified COPD type (HCC); Pneumonia due to infectious organism, unspecified laterality, unspecified part of lung 09/03/2024 1:15 PM CDT - 09/03/2024 11:59 PM CDT Hospital Encounter [facility] Pulmonary [address] [place] [address] [address] [place] [address] Chronic obstructive pulmonary disease, unspecified COPD type (HCC) Discharge Disposition: Discharge to home or self care 09/03/2024 1:03 PM CDT - 09/03/2024 11:59 PM CDT Hospital Encounter [facility] Radiology [facility] [address] [place] [phone] Chronic obstructive pulmonary disease, unspecified COPD type (HCC) Discharge Disposition: Discharge to home or self care 09/03/2024 Orders Only [facility]monary [address] [place] [address] for Advanced Medicine 8th [place] [address] Puneet Powell MD from Last 3 Months Surgical History Surgery Date Site/Laterality Comments BACK SURGERY TRACHEOSTOMY TOTAL HIP ARTHROPLASTY Bilateral Medical History Medical History Date Comments Hx Other Medical DJD Chronic obstructive pulmonary disease (HCC) COPD Hypertension Diabetes mellitus (HCC) Coronary artery disease A-fib (HCC) A-fib (HCC) history Family History Medical History Relation Name Comments COPD Brother Heart disease Brother Hypertension Brother Stroke Brother Heart disease Mother Relation Name Status Comments Brother Father Mother Social History Tobacco Use Types Packs/Day Years Used Date Smoking Tobacco: Former Cigarettes Q uit: 1982 Smokeless Tobacco: Never Tobacco Cessation:Counseling Given: Not Answered Alcohol Use Standard Drinks/Week Comments No 0 (1 standard drink = 0.6 oz pur e alcohol) Sex and Gender Information Value Date Recorded Sex Assigned at Not on file 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 Gender Identity Not on file Sexual Orientation Not on file Obstetrics History Last Filed Vital Signs Vital Sign Reading Time Taken Comments Blood Pressure 118/56 10/01/2024 1:51 PM CDT Pulse 96 10/01/2024 1:51 PM CDT Temperature 36.4 C (97.5 F) 09/03/2024 2:39 PM CDT Respiratory Rate 18 09/03/2024 2:39 PM CDT Oxygen Saturation 94% 10/01/2024 1:51 PM CDT Inhaled Oxygen Concentration - - Weight 104.3 kg (230 lb) 10/01/2024 1:51 PM CDT per pt Height 180.3 cm (5' 11 ) 10/01/2024 1:51 PM CDT Body Mass Index 32.08 10/01/2024 1:51 PM CDT Plan of Treatment Health Maintenance Due Date Last Done Comments Colon Cancer Screening-Colonoscopy 1950 Depression Screening 1950 Fall Risk Assessment 1950 Hepatitis C Screening 1950 Hepatitis B Screening 1966 Well Visit 65+ 2013 Covid-19 Vaccine (2023-2 5 season) 2024 07/21/2022, 03/15/2021, 07/16/2020, Additional history exists Influenza Vaccine (Season Ended) 2025 03/20/2022, 03/15/2021, 03/11/2020, Additional history exists DTaP/Tdap/Td Vaccine (3 - Td or Tdap) 07/21/2032 07/21/2022, 06/06/2009 Pneumococcal vaccine 65+ Completed 06/29/2016, 06/2014 Zoster Vaccine Completed 04/23/2021, 01/04, 05/01/2013 Abdominal Aortic Aneurysm (A AA) Screen Completed 10/16/2023, 08/26/2017, 08/09/2017, Additional history exists Procedures Procedure Name Priority Date/Time Associated Diagnosis Comments CT BODY OUTSIDE REFERENCE Routine 09/04/2024 3:[address] BODY OUTSIDE REFERENCE Routine 09/04/2024 3:15 AM CDT PULMONARY FUNCTION TEST (PFT) Routine 09/03/2024 2:29 PM CDT Chronic obstructive pulmonary disease, unspecified COPD type (HCC) XR CHEST PA LATERAL 2 VIEWS Schedule Routine, Read Routine (OP Routine) 09/03/2024 1:11 PM CDT Chronic obstructive pulmonary disease, unspecified COPD type (HCC) from Last 3 Months Results * CT Body Outside Reference (09/04/2024 3:18 AM CDT) Impressions RAD[facility]PACS[facility] - 09/04/2024 3:18 AM CDT These images are for Reference purposes only and have not been reviewed by [facility]. There will be no report generated by a [facility] Radiologist. Narrative RAD_PACS_[facility] - 09/04/2024 3:18 AM CDT EXAMINATION: Images For Reference Purposes Only Puneet Powell MD [facility] PROCEDURES Yajaira l Result Performing Organization Address [facility] de Phone Number [email or web address] * CT Body Outside Reference (09/04/2024 3:15 AM CDT) Impressions RAD_PACS_[facility] - 09/04/2024 3:15 AM CDT These images are for Reference purposes only and have not been reviewed by [facility]. There will be no report generated by a [facility] Radiologist. Narrative RAD_PACS_[facility] - 09/04/2024 3:15 AM CDT EXAMINATION: Images For Reference Purposes Only Puneet Powell MD IM CT PROCEDURES Yajaira l Result Performing Organization Address [facility] Co de Phone Number [email or web address] * Pulmonary Function Test - (09/03/2024 2:29 PM CDT) FVC PRE 2.54 L [facility] FVC %PRE PRED 62 % [facility] FVC POST 3.02 L [facility] FVC %POST PRED 74 % [facility] FEV1 PRE 1.25 L [facility] FEV1 %PRE PRED 41 % [facility] FEV1 POST 1.15 L [facility] FEV1 %POST PRED 38 % [facility] FEV1/FVC PRE 49.2 % [facility] FEV1/FVC POST 38.0 % [facility] FRC PL PRE 3.92 L [facility] FRC PL %PRE PRED 100 % [facility] RV PRE 2.28 L [facility] RV %PRE PRED 86 % [facility] TLC PRE 4.95 L [facility] TLC %PRE PRED 68 % [facility] DLCO PRE 6.6 ml/min/mmH g [facility] DLCO %PRE PRED 25 % [facility] FIO2 % 21.00 % [facility] PaO2 74.0 mmHg [facility] PaCO2 47.0 mmHg [facility] pH 7.40 [facility] A-aDO2 POC 17.0 mmHg [facility] METHGB % 0.9 % [facility] COHb POC 1.2 % [facility] HCO3 29.1 mEq/L [facility] Anatomical Region Laterality Modality PFT 09/03/2024 1:29 PM CDT Narrative 09/04/2024 2:16 PM CDT Table formatting from the original result was not included. [facility] Division of Pulmonary & Critical Care Medicine [address] [place] [address]; [place] [address] [facility]; [place] [address]; [phone] Pulmonary Function Laboratory Pulmonary Stress Test Simple/Oxygen Assessment Patient: Mason Keys Date: 09/03/2024 : 1950 Ht: 71 IN Wt: 238 LBS Time (min) Distance (ft)/ Ramsey O2 L/M SpO2 HR Marium* BP FEV1 % Pred Rest: RA 99 82 0 102/60 1.06 35% Walk/Bike: 1 RA 96 111 3 2 RA 94 103 5 3 4 5 6 min 0 sec Recovery: 1 RA 96 103 3 102/54 3 RA 98 94 1.02 34% *Marium rate of perceived exertion (1-10 dyspnea scale) Yassine, CHEST 2003; [id number] Walk Test Summary: Six Minute Walk Distance: 60 ft Six-minute Walk Work [distance (m) x body wt (kg)]: 1971 kg.m (normal >60,000kg.m) Oxygen required to maintain SpO2 greater than 90% during six minutes of walkin L/M Comments: PATIENT WALKED WITH WALKER. PATIENT WALK ENDED DUE TO SOB. Interpretation: Breathing room air, SpO2 is normal at rest. During ~2 minutes of exercise sufficient to increase pulse, SpO2 falls but remains normoxemic. On this basis, SpO2 is adequate at rest breathing room air and while walking breathing room air. This level of exercise is associated with no significant change of FEV1. Harpal Allen MD By signing this report, the attending pulmonary physician certifies that he has personally reviewed and interpreted the graphic and numerical data associated with this pulmonary function study and has reviewed and /or edited a preliminary draft report and agrees with the written final report. PFT performed at:->[facility] Adult PFT Lab- [facility] Procedure:->Oxygen Assessment Titration Procedure:->Spirometry Procedure:->Spirometry with Bronchodilator Procedure:->Lung Volumes Procedure:->ABG with Co-oximetry Procedure:->DLCO Lung Volumes via:->Pleth with Airway Resistance DLCO:->Spirometry Air Type:->Room Air Pulmonary Function Test Interpretation SPIROMETRY: Spirometry did not meet standards of acceptability and reproducibility. This diminishes the reliability of the results. There is scooping of the expiratory limb of the flow-volume curve, consistent with expiratory airflow obstruction. There is a decrease in expiratory airflow at all lung volumes. The FEV1 to FVC ratio is reduced. The decreased expiratory flow and FEV1 and FVC are consistent with a combined restrictive and obstructive abnormality. There is significant improvement after inhaling a single dose of albuterol. The inspiratory loop is appropriate for the expiratory flow abnormality. LUNG VOLUMES: TLC measured by plethysmography is decreased. DLCO: DLCO testing did not meet standards of accuracy and reproducibility. The diffusing capacity is severely decreased. The diffusing capacity corrected for hemoglobin level (DLCO ADJ) is severely decreased. A decreased diffusing capacity may be due to loss of pulmonary capillary surface area. Causes include pulmonary fibrosis (altered V/Q relationship), pulmonary vascular disease, emphysema, or interstitial pneumonitis. ARTERIAL BLOOD GAS: There is a mild mixed acid-base disturbance: metabolic alkalosis and respiratory acidosis. The arterial pO2 is normal at rest. The COHb level is 1.2%. Normal is less than 2%. 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 There is a severe impairment of alveolar gas exchange by DLCO. There is no impairment of gas exchange at rest by ABG, but there is mild hypoventilation. The COHb level is consistent with current non-smoking status. Harpal Allen MD The attending pulmonary physician certifies a physician presence in the [facility] Suite during the administration of aerosolized bronchodilator. The attending pulmonary physician certifies that he has reviewed and interpreted the graphic and numerical data of this pulmonary function study and agrees with the written final report. The lower limit of normal for PaO2 and %HbO2 is age dependent. However, the [facility] Pulmonary Function Laboratory defines hypoxemia as a PaO2 <56 mm Hg or a %HbO2 <89%. Starting on June of 2024 the [facility] Pulmonary Function Laboratory utilizes race neutral GLI Global normative equations. us Puneet Powell MD PFT ORDERABLES Final Result * XR Chest Pa Lateral 2 Views (09/03/2024 1:11 PM CDT) Anatomical Region Laterality Modality Body, Chest N/A Computed Radiogr aphy 09/03/2024 2:36 PM CDT Impressions 09/03/2024 3:17 PM CDT The current study is compared with the prior radiograph dated 10/30/2017. Compression deformity in the lower thoracic spine is age-indeterminate, new from prior. Tiny bilateral pleural effusions. Mild bibasilar atelectasis. No pneumothorax. Mild cardiomegaly. Mediastinal contour within normal limits. Coronary artery stent is in place. Dictated by: Babita Driver M.D. The radiology attending physician has personally reviewed this study, and had reviewed and/or edited this written report and agrees with it. Electronically signed by: Amanda Lance M.D. Narrative 09/03/2024 3:17 PM CDT EXAMINATION: 2 view chest radiograph Procedure Note Amanda Lance MD - 09/03/2024 EXAMINATION: 2 view chest radiograph IMPRESSION: The current study is compared with the prior radiograph dated 10/30/2017. Compression deformity in the lower thoracic spine is age-indeterminate, new from prior. Tiny bilateral pleural effusions. Mild bibasilar atelectasis. No pneumothorax. Mild cardiomegaly. Mediastinal contour within normal limits. Coronary artery stent is in place. Dictated by: Babita Driver M.D. The radiology attending physician has personally reviewed this study, and had reviewed and/or edited this written report and agrees with it. Electronically signed by: Amanda Lance M.D. Puneet Powell MD IMG XR PROCEDURES Yajaira l Result from Last 3 Months Insurance [employer] MEDICARE A[facility] [facility]ICARE [facility] Advance Directives For more information, please contact: [phone] * Full Code (Latest Code Status on File) Date Activated Date Inactivated Comments 10/24/2017 8:34 PM 2017 4:37 PM Care Teams Railroad Conductor Relationship Specialty Start Date End Date Cleo Funk DO [facility] [place] [id number] PCP - General Family Medicine 03/27/24
--- OUTSIDE RECORDS SUMMARY | 2024-10-26 08:13 | XMS_ITS | Referral Summary ---
Author Organization [facility] [address] Address [address] [place] [address] Care Team Providers Care Environmental Service Aide Name Role Phone Cleo Funk DO Primary Care Provider + Encounters Date Type Department Care Team Description 10/01/2024 1:45 PM CDT Office Visit [facility] Cardiology [address] [place] [address] Epi Lake MD Chronic atrial fibrillation (HCC) (Primary Dx) 09/04/2024 3:18 AM CDT - 09/04/2024 11:59 PM CDT Hospital Encounter [facility]) [address] [place] [address] Discharge Disposition: Discharge to home or self care 09/04/2024 3:15 AM CDT - 09/04/2024 11:59 PM CDT Hospital Encounter [facility]) [address] [place] [address] Discharge Disposition: Discharge to home or self care 09/03/2024 Orders Only [facility] Pulmonary [address] [facility] 8th [place] [address] [place] [address] Puneet Powell MD 09/03/2024 1:03 PM CDT - 09/03/2024 11:59 PM CDT Hospital Encounter [facility]) [address] [place] [address] Chronic obstructive pulmonary disease, unspecified COPD type (HCC) Discharge Disposition: Discharge to home or self care 09/03/2024 1:15 PM CDT - 09/03/2024 11:59 PM CDT Hospital Encounter [facility] Pulmonary [address] [facility] [address] [place] [address] Chronic obstructive pulmonary disease, unspecified COPD type (HCC) Discharge Disposition: Discharge to home or self care 09/03/2024 3:00 PM CDT Office Visit [facility] Pulmonary [address] [facility] Advanced Medicine 8th [place] [address] [place] [address] Puneet Powell MD Chronic obstructive pulmonary disease, unspecified COPD type (HCC); Pneumonia due to infectious organism, unspecified laterality, unspecified part of lung from Last 3 Months Allergies Active Allergy [...] for diskitis prior to his admission to [facility] Assessment & Plan (11/05/2017 6:40 AM CDT): Completed debridement, prolonged antibiotic therapy for an L1 diskitis. Continue physical therapy, pain control Pneumonia 10/25/2017 Assessment & Plan (11/09/2017 8:10 AM CDT): Completed treatment for pneumonia, empyema prior to transfer to [facility]. Finished Bactrim for stenotrophomonas pneumonia here. Continue to observe off antibiotics. Chronic atrial fibrillation 02/22/2017 Assessment & Plan (11/09/2017 8:12 AM CDT): Normal sinus rhythm by exam. Monitor for bleeding ( had bleeding around his tracheostomy, skin tears while at [facility]). 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 There will be no report generated by a [facility] Radiologist. Narrative [facility] - 09/04/2024 3:18 AM CDT EXAMINATION: Images For Reference Purposes Only us Puneet Powell MD IMG CT PROCEDURES Yajaira pearson Result [facility] * CT Body Outside Reference (09/04/2024 3:15 AM CDT) Impressions [facility] - 09/04/2024 3:15 AM CDT These images are for Reference purposes only and have not been reviewed by [facility] Radiology. There will be no report generated by a [facility] Radiologist. Narrative [facility] - 09/04/2024 3:15 AM CDT EXAMINATION: Images For Reference Purposes Only us Puneet Powell MD IMG CT PROCEDURES Yajaira lili Result [facility] * Pulmonary Function Test - (09/03/2024 2:29 PM CDT) FVC PRE 2.54 L [facility] FVC %PRE PRED 62 % [facility] FVC POST 3.02 L [facility] FVC %POST PRED 74 % [facility] FEV1 PRE 1.25 L [facility] FEV1 %PRE PRED 41 % [facility] FEV1 POST 1.15 L [facility] FEV1 %POST PRED 38 % [facility] FEV1/FVC PRE 49.2 % [facility] FEV1/FVC POST 38.0 % [facility] FRC PL PRE 3.92 L [facility] FRC PL %PRE PRED 100 % [facility] RV PRE 2.28 L [facility] RV %PRE PRED 86 % [facility] TLC PRE 4.95 L [facility] TLC %PRE PRED 68 % [facility] DLCO PRE 6.6 ml/min/mmH g [facility] DLCO %PRE PRED 25 % [facility] FIO2 % 21.00 % [facility] PaO2 74.0 mmHg [facility] PaCO2 47.0 mmHg [facility] pH 7.40 [facility] A-aDO2 POC 17.0 mmHg [facility] METHGB % 0.9 % [facility] COHb POC 1.2 % [facility] HCO3 29.1 mEq/L [facility] Anatomical Region Laterality Modality PFT 09/03/2024 1:29 PM CDT Narrative 09/04/2024 2:16 PM CDT Table formatting from the original result was not included. [facility] Division of Pulmonary & Critical Care Medicine [address] [place] [address]; [address] [facility]; [place] [address]; [phone] Pulmonary Function Laboratory Pulmonary Stress Test Simple/Oxygen [...] with the written final report. PFT performed at:->[facility] Adult PFT Lab- [facility] Procedure:->Oxygen Assessment Titration Procedure:->Spirometry Procedure:->Spirometry with Bronchodilator [...] and %HbO2 is age dependent. However, the [facility] Pulmonary Function Laboratory defines hypoxemia as a PaO2 <56 mm Hg or a %HbO2 <89%. Starting on June of 2024 the [facility] Pulmonary Function Laboratory utilizes race neutral GLI [...] l Result from Last [address] [place] [address] [employer] MEDICARE [facility] MEDICARE [facility] MEDICARE Advance Directives For more information, please contact: [phone] * Full Code (Latest Code Status on File) Date Activated Date Inactivated Comments 10/24/2017 8:34 PM 2017 4:37 PM Care Teams Environmental Service Aide Relationship Specialty Start Date End Date Cleo Funk DO [address] [place] [address] [place] [address] PCP - General Family Medicine 03/27/24
[2024-10-26 08:49] LABS: Alveolar/Arterial O2 Gradient 44.1 mmHg; Base Excess ABG 3.5 mEq/l (+/-2.0); Fractional Inspired Oxygen 28 %; HCO3 ABG 28.3 mEq/l (22.0-26.0); Oxygen Content ABG 17.6 %vol (16.0-22.0); Oxygen Saturation ABG 97.9 % (95.0-100.0); PCO2 ABG 43.7 mmHg (35.0-45.0); PO2 FiO2 Ratio Arterial Blood 3.71 %; Total Hemoglobin 12.8 g/dL (12.0-18.0); pH ABG 7.429 (7.350-7.450)
[2024-10-26 08:50] LABS: Modified Allen's Test Pass; Site Drawn LEFT RADIAL
[2024-10-26 08:51] LABS: Device NASAL CANNULA
== END 2024-10-26 08:09 | disposition home or self-care (01) ==
LOC: ANHPFT 08:11
PROVIDERS: PCP Family Medicine; Visit Provider Nurse Practitioner Family
DX: J44.9 Chronic obstructive pulmonary disease, unspecified (principal)
CPT/HCPCS: 36600; 82805; 85018

== ENCOUNTER 2024-11-05 18:30 | Inpatient (IN) | payer MEDICARE, SELFPAY ==
[2024-11-05] VITALS (13 sets, daily range): BP systolic 121–148; BP diastolic 73–96; PULSE 86–108; RESP 19–29; TEMP 36.5; O2SAT 96–100
--- NOTE | ~2024-11-05 | XR_ITS ---
EXAMINATION: XR chest 2V Exam Date/Time: 11/05/2024 19:57 CDT HISTORY: SOB Comparison: 05/20/2024, 01/19/2024; CT chest 01/19/2024. RESULT: Lines, tubes, and devices: Upper lumbar vertebral cage. Coronary stents. Lungs and pleura: Mild peripheral reticulonodular opacities and scattered groundglass/centrilobular nodular. Chronic left lateral costophrenic angle blunting. Cardiomediastinal silhouette: Stable. Other: No acute osseous or upper abdominal finding. IMPRESSION: Pulmonary opacities may represent edema, respiratory bronchiolitis, or atypical infection. Small left pleural effusion versus chronic pleural blunting. Reviewed, dictated and finalized at location K.
--- NOTE | ~2024-11-05 | XR_ITS ---
XR chest 1V portable 11/09/2024 15:24 Indication: Pneumonia Procedure: AP portable chest Comparison: Comparison to multiple prior studies sequentially, with oldest reviewed study dated 01/17. Findings: Cardiomegaly with interstitial edema. No pleural effusion or pneumothorax. No acute osseous abnormality. There is chronic pleural thickening left lower thorax unchanged. Impression: 1: Cardiomegaly with interstitial edema. Reviewed, dictated and finalized at location A. Impression: 1: Cardiomegaly with interstitial edema.
--- NOTE | ~2024-11-05 | CT_ITS ---
EXAMINATION: CT diagnostic chest wo con DATE: 11/14/2024 10:46 INDICATION: res failure; pulm edema vs PnA TECHNIQUE: Computed tomography (CT) of the chest was performed without intravenous contrast. Addition al 3D reconstructions utilizing coronal maximum intensity projection (MIP) were performed. Automated exposure control and iterative reconstruction technique were employed. The dose-length product was 63 8.27 mGy-cm. COMPARISON: Chest CT dated 01/19/2024 FINDINGS: Small left pleural effusion. Tree-in-bud opacities with numerous small centrilobular nodules PROXIMAL thickening and bronchial mucous plugging in the posterior basilar left lower lobe concerning for pne umonia. There are scattered small bilateral calcified pulmonary nodules along with calcified right hi lar and mediastinal lymph nodes consistent with old granulomatous disease. Also few additional scatte red small noncalcified pulmonary nodules the largest in the right lower lobe measuring up to 5 mm. Mi ld smooth septal line thickening at the bilateral lung bases consistent with minimal pulmonary edema. No right pleural effusion. Heart size is normal. Atherosclerotic coronary artery calcification. Ther e are also chronic pericardial calcifications which can predispose towards constrictive pericarditis. Thoracic aorta is normal in caliber. No pathologically enlarged thoracic lymphadenopathy. Hepatic ca lcification consistent with old granulomatous disease. Likely age-related mild bilateral renal cortic al atrophy. Chronic likely associated mild anterior wedging at T11 and T12. There are bridging osteop hytes at multiple levels consistent with diffuse idiopathic skeletal hyperostosis (DISH). IMPRESSION: 1. New tree-in-bud opacities with bronchial wall thickening and mucous plugging in the and posterior basilar segment of the left lower lobe consistent with pneumonia. 2. Minimal bibasilar pulmonary edema and small left pleural effusion. 3. Chronic pericardial calcifications which could predispose towards constrictive pericarditis. Reviewed, dictated and finalized at location A. IMPRESSION: 1. New tree-in-bud opacities with bronchial wall thickening and mucous plugging in the and posterior basilar segment of the left lower lobe consistent with pn eumonia. 2. Minimal bibasilar pulmonary edema and small left pleural effusion. 3. Chronic pericardial calcifications which could predispose towards constricti ve pericarditis.
--- OUTSIDE RECORDS SUMMARY | 2024-11-05 18:32 | XMS_ITS | Referral Summary ---
Author Organization [facility] [address] Address [address] [place] [address] Care Team Providers Care Meat Process Worker Name Role Phone Cleo Funk DO Primary Care Provider + Encounters Date Type Department Care Team Description 10/01/2024 1:45 PM CDT Office Visit [facility] Cardiology [address] [place] [address] Epi Lake MD Chronic atrial fibrillation (HCC) (Primary Dx) 09/04/2024 3:18 AM CDT - 09/04/2024 11:59 PM CDT Hospital Encounter [facility] ([facility]) [address] [place] [address] Discharge Disposition: Discharge to home or self care 09/04/2024 3:15 AM CDT - 09/04/2024 11:59 PM CDT Hospital Encounter [facility]) [address] [place] [address] Discharge Disposition: Discharge to home or self care 09/03/2024 Orders Only [facility] Pulmonary [address] [facility] 8th [place] [address] [place] [address] Pnueet Powell MD 09/03/2024 1:03 PM CDT - 09/03/2024 11:59 PM CDT Hospital Encounter [facility]) [address] [place] [address] Chronic obstructive pulmonary disease, unspecified COPD type (HCC) Discharge Disposition: Discharge to home or self care 09/03/2024 1:15 PM CDT - 09/03/2024 11:59 PM CDT Hospital Encounter [facility] Pulmonary [address] [facility] [address] [place] [address] Chronic obstructive pulmonary disease, unspecified COPD type (HCC) Discharge Disposition: Discharge to home or self care 09/03/2024 3:00 PM CDT Office Visit [facility] Pulmonary [address] [facility] Advanced Medicine 8th [place] [address] [place] [address] Puneet Powell MD Chronic obstructive pulmonary disease, unspecified COPD type (HCC); Pneumonia due to infectious organism, unspecified laterality, unspecified part of lung from Last 3 Months Allergies Active Allergy Reactions Criticality Noted Date Comments Clindamycin Eye irritation Low 08/01/2023 Levofloxacin Unknown 04/24/2019 red around the eyes, puffy, itchy Penicillin Hives,Rash Medium 03/30/2013 Penicillins [...] for diskitis prior to his admission to [facility] Assessment & Plan (11/05/2017 6:40 AM CDT): Completed debridement, prolonged antibiotic therapy for an L1 diskitis. Continue physical therapy, pain control Pneumonia 10/25/2017 Assessment & Plan (11/09/2017 8:10 AM CDT): Completed treatment for pneumonia, empyema prior to transfer to [facility]. Finished Bactrim for stenotrophomonas pneumonia here. Continue to observe off antibiotics. Chronic atrial fibrillation 02/22/2017 Assessment & Plan (11/09/2017 8:12 AM CDT): Normal sinus rhythm by exam. Monitor for bleeding ( had bleeding around his tracheostomy, skin tears while at [facility]). 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 There will be no report generated by a [facility] Radiologist. Narrative [facility] - 09/04/2024 3:18 AM CDT EXAMINATION: Images For Reference Purposes Only us Puneet Powell MD IMG CT PROCEDURES Yajaira pearson Result [facility] * CT Body Outside Reference (09/04/2024 3:15 AM CDT) Impressions [facility] - 09/04/2024 3:15 AM CDT These images are for Reference purposes only and have not been reviewed by [facility]. There will be no report generated by a [facility] Radiologist. Narrative [facility] - 09/04/2024 3:15 AM CDT EXAMINATION: Images For Reference Purposes Only us Puneet Powell MD IMG CT PROCEDURES Yajaira lili Result [facility] * Pulmonary Function Test - (09/03/2024 2:29 PM CDT) FVC PRE 2.54 L [facility] FVC %PRE PRED 62 % [facility] FVC POST 3.02 L [facility] FVC %POST PRED 74 % [facility] FEV1 PRE 1.25 L [facility] FEV1 %PRE PRED 41 % [facility] FEV1 POST 1.15 L [facility] FEV1 %POST PRED 38 % [facility] FEV1/FVC PRE 49.2 % [facility] FEV1/FVC POST 38.0 % [facility] FRC PL PRE 3.92 L [facility] FRC PL %PRE PRED 100 % [facility] RV PRE 2.28 L [facility] RV %PRE PRED 86 % [facility] TLC PRE 4.95 L [facility] TLC %PRE PRED 68 % [facility] DLCO PRE 6.6 ml/min/mmH g [facility] DLCO %PRE PRED 25 % [facility] FIO2 % 21.00 % [facility] PaO2 74.0 mmHg [facility] PaCO2 47.0 mmHg [facility] pH 7.40 [facility] A-aDO2 POC 17.0 mmHg [facility] METHGB % 0.9 % [facility] COHb POC 1.2 % [facility] HCO3 29.1 mEq/L [facility] Anatomical Region Laterality Modality PFT 09/03/2024 1:29 PM CDT Narrative 09/04/2024 2:16 PM CDT Table formatting from the original result was not included. [facility] Division of Pulmonary & Critical Care Medicine [address] [place] [address]; [address] [facility]; [place] [address]; [phone] Pulmonary Function Laboratory Pulmonary Stress Test Simple/Oxygen [...] with the written final report. PFT performed at:->[facility] Adult PFT Lab- [facility] Procedure:->Oxygen Assessment Titration Procedure:->Spirometry Procedure:->Spirometry with Bronchodilator [...] and %HbO2 is age dependent. However, the [facility] Pulmonary Function Laboratory defines hypoxemia as a PaO2 <56 mm Hg or a %HbO2 <89%. Starting on June of 2024 the [facility] Pulmonary Function Laboratory utilizes race [...] from Last [address] [place] [address] [employer] MEDICARE [facility] MEDICARE [facility] MEDICARE Advance Directives For more information, please contact: [phone] * Full Code (Latest Code Status on File) Date Activated Date Inactivated Comments 10/24/2017 8:34 PM 2017 4:37 PM Care Teams Meat Process Worker Relationship Specialty Start Date End Date Cleo Funk DO [address] [place] [address] [place] [address] PCP - General Family Medicine 03/27/24
--- OUTSIDE RECORDS SUMMARY | 2024-11-05 18:32 | XMS_ITS | Clinical Summary ---
Author Organization [facility] [address] Address [address] [place] [address] Care Team Providers Care Rn Procedures Name Role Phone Cleo Funk DO Primary [...] diskitis prior to his admission to [facility] Assessment & Plan (11/05/2017 6:40 AM CDT): Completed debridement, prolonged antibiotic therapy for an L1 diskitis. Continue physical therapy, pain control Pneumonia 10/25/2017 Assessment & Plan (11/09/2017 8:10 AM CDT): Completed treatment for pneumonia, empyema prior to transfer to [facility]. Finished Bactrim for stenotrophomonas pneumonia here. Continue to observe off antibiotics. Chronic atrial fibrillation 02/22/2017 Assessment & Plan (11/09/2017 8:12 AM CDT): Normal sinus rhythm by exam. Monitor for bleeding ( had bleeding around his tracheostomy, skin tears while at [facility]). Continue amiodarone, aspirin, Lipitor, metoprolol, apixaban Encounters Date Type Department Care Team Description 10/01/2024 1:45 PM CDT Office Visit [facility] Cardiology [address] [place] [address] Epi Lake MD Chronic atrial fibrillation (HCC) (Primary Dx) 09/04/2024 3:18 AM CDT - 09/04/2024 11:59 PM CDT Hospital Encounter [facility] ([facility]) [address] [place] [address] Discharge Disposition: Discharge to home or self care 09/04/2024 3:15 AM CDT - 09/04/2024 11:59 PM CDT Hospital Encounter [facility]) [address] [place] [address] Discharge Disposition: Discharge to home or self care 09/03/2024 3:00 PM CDT Office Visit [facility] Pulmonary [address] [place] [address] for Advanced Medicine 8th [place] [address] [place] [address] Puneet Powell MD Chronic obstructive pulmonary disease, unspecified COPD type (HCC); Pneumonia due to infectious organism, unspecified laterality, unspecified part of lung 09/03/2024 1:15 PM CDT - 09/03/2024 11:59 PM CDT Hospital Encounter [facility] Pulmonary [address] [place] [address] [address] [place] [address] Chronic obstructive pulmonary disease, unspecified COPD type (HCC) Discharge Disposition: Discharge to home or self care 09/03/2024 1:03 PM CDT - 09/03/2024 11:59 PM CDT Hospital Encounter [facility] ([facility]) [address] [place] [address] Chronic obstructive pulmonary disease, unspecified COPD type (HCC) Discharge Disposition: Discharge to home or self care 09/03/2024 Orders Only [facility] Pulmonary [address] [place] [address] for Advanced Medicine 8th [place] [address] Puneet Powell MD from Last 3 Months [...] on file 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 There will be no report generated by a [facility] Radiologist. Narrative [facility] - 09/04/2024 3:18 AM CDT EXAMINATION: Images For Reference Purposes Only Puneet Powell MD [facility] CT PROCEDURES Yajaira l Result Performing Organization Address [facility] de Phone Number [facility] * CT Body Outside Reference (09/04/2024 3:15 AM CDT) Impressions [facility] - 09/04/2024 3:15 AM CDT These images are for Reference purposes only and have not been reviewed by [facility] Radiology. There will be no report generated by a [facility] Radiologist. Narrative [facility] - 09/04/2024 3:15 AM CDT EXAMINATION: Images For Reference Purposes Only Puneet Powell MD IM CT PROCEDURES Yajaira l Result Performing Organization Address City/[facility] Co de Phone Number [facility] * Pulmonary Function Test - (09/03/2024 2:29 PM CDT) FVC PRE 2.54 L [facility] FVC %PRE PRED 62 % [facility] FVC POST 3.02 L [facility] FVC %POST PRED 74 % [facility] FEV1 PRE 1.25 L [facility] FEV1 %PRE PRED 41 % [facility] FEV1 POST 1.15 L [facility] FEV1 %POST PRED 38 % [facility] FEV1/FVC PRE 49.2 % [facility] FEV1/FVC POST 38.0 % [facility] FRC PL PRE 3.92 L [facility] FRC PL %PRE PRED 100 % [facility] RV PRE 2.28 L [facility] RV %PRE PRED 86 % [facility] TLC PRE 4.95 L [facility] TLC %PRE PRED 68 % [facility] DLCO PRE 6.6 ml/min/mmH g [facility] DLCO %PRE PRED 25 % [facility] FIO2 % 21.00 % [facility] PaO2 74.0 mmHg [facility] PaCO2 47.0 mmHg [facility] pH 7.40 [facility] A-aDO2 POC 17.0 mmHg [facility] METHGB % 0.9 % [facility] COHb POC 1.2 % [facility] HCO3 29.1 mEq/L [facility] Anatomical Region Laterality Modality PFT 09/03/2024 1:29 PM CDT Narrative 09/04/2024 2:16 PM CDT Table formatting from the original result was not included. [facility] Division of Pulmonary & Critical Care Medicine [address] [place] [address]; [address] [facility]; [place] [address]; [phone] Pulmonary Function Laboratory Pulmonary Stress Test Simple/Oxygen [...] with the written final report. PFT performed at:->[facility] Adult PFT Lab- [facility]-8D Procedure:->Oxygen Assessment [...] and %HbO2 is age dependent. However, the [facility] Pulmonary Function Laboratory defines hypoxemia as a PaO2 <56 mm Hg or a %HbO2 <89%. Starting on June of 2024 the [facility] Pulmonary Function Laboratory utilizes race neutral [...] 3 Months Insurance A[employer] MEDICARE AETNA MEDICARE [facility] MEDICARE Advance Directives For more information, please contact: [phone] * Full Code (Latest Code Status on File) Date Activated Date Inactivated Comments 10/24/2017 8:34 PM 2017 4:37 PM Care Teams Rn Procedures Relationship Specialty Start Date End Date Cleo Funk DO [facility] [address] [place] [id number] PCP - General Family Medicine 03/27/24
--- OUTSIDE RECORDS SUMMARY | 2024-11-05 18:32 | XMS_ITS | Encounter Summary ---
Author Organization [facility] Healthcare Address [address] [place] [address] Care Team Providers Care Kids Club Attendant Name Role Phone Briana Medeiros MD Primary Care Provider [phone] Napoleon Birmingham MD Primary Care Provider [phone] Cleo Funk DO Primary Care Provider + Encounter Details Date Type Department Care Team (Late st Contact Info) Description 10/24/2017 Telephone [facility] Physical Medicine and Rehabilitation [facility] [place] [address] Katya Oliver, DONTAE Social History Tobacco Use Types Packs/Day Years Used Date Smoking Tobacco: Former Smokeless Tobacco: Never Alcohol Use Standard Drinks/Week Comments No 0 (1 standard drink = 0.6 oz pur e alcohol) Sex and Gender Information Value Date Recorded Sex Assigned at Not on file 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
--- OUTSIDE RECORDS SUMMARY | 2024-11-05 18:32 | XMS_ITS | Clinical Summary ---
Author Organization [facility] Address [address] [place] [address] Care Team Providers Care Cattle Manager Name Role Phone FunkCleo DO Primary Care Provider [phone] Source Comments [facility],non-owned Affiliates and Associated Physician Practices is amultiple site organization consisting of ambulatory clinics and hospital sitesin [place], [place], [place] and [place]. This disclosure is being madepursuant to the Care Everywhere program and may not contain all information available regarding this patient. Last updated 18.[facility] studdex Allergies Active Allergy Reactions Criticality Noted Date Comments Peppers GI Discomfort 10/20/2021 Green and red peppers Levofloxacin Eye Itching 04/24/2019 red around the eyes, puffy, itchy Penicillins Skin Reactions,Swelling Medium 07/14/2017 Scopolamine Other,HAND BINDER CUTTER Dysfunction 02/07/2019 delirium Tobramycin Eye Itching 10/23/2019 [...] fluticasone propionate (Flonase) 50 MCG/ACT nasal spray Blount 1 (one) spray into each nostril once [...] Description 09/19/2024 2:00 PM CDT Office Visit [facility] - Orthopedic Surgery [facility] [place] [address] Larry Alexander MD Primary osteoarthritis of left knee (Primary Dx) 09/19/2024 Travel 08/23/2024 12:45 PM CDT - 08/23/2024 1:15 PM CDT Surgery [facility] [address] [place] [phone] Twin Miller MD EGD w/ alexus--stay on eliquis 08/23/2024 12:43 PM CDT Anesthesia Event [facility] [address] [place] [phone] Mónica Gold MD 08/23/2024 11:13 AM CDT - 08/23/2024 2:00 PM CDT Hospital Encounter [facility] [address] [place] [phone] Twin Miller MD Surgery General Discharge Disposition: Home or Self Care 08/16/2024 Patient Outreach [facility] [address] [place] [phone] Guadalupe Rick, RN Pre-op Instructions from Last [...] Recorded Patient Health Questionnaire-2 Score 1 05/15/2024 [facility] - Occupational Stress [...] on file 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 Gender Identity Not on file Sexual [...] 11:30 AM CDT Height 180.3 cm (5' 11) 08/23/2024 11:30 AM CDT Body Mass Index 37.66 08/23/2024 11:30 AM CDT Plan of Treatment Upcoming Encounters Date Type Department Care Team (Late st Contact Info) Description 12/25/2024 1:30 PM CDT Office Visit [facility] - Orthopedic Surgery [address] [place] [address] Larry Alexander MD [address] [facility] [address] [place] [address] 03/11/2025 9:30 AM CDT Appointment [place] [id number] [place] [phone] Twin Miller MD [address] [place] [address] [place] [address] 03/11/2025 10:15 AM CDT Appointment [facility] OP DRAW STATION [address] [place] [phone] Twin Miller MD [address] [place] [address] [address] [place] [address] 03/11/2025 11:00 AM CDT Office Visit [facility] - GI [address] [place] [address], [place] [phone] Twin Miller MD [address] [place] [address] [address] [place] [address] Health Maintenance Due Date Last Done Comments [...] Management General On track( 025 12:17 PM TIRE TESTER) No Monty Gentile, RN Note: Expected end [...] you. Interventions: Medical Devices Implanted Type Area Electronic Musical Instrument Repairer Device Identifier Shelf Expiration Date Model / Serial / Lot Trident 10 Deg X 3 Insert 36mm Id Implanted:Qty: 1 on 02/08/2019 by Larry Alexander MD at [facility] [employer] 06/23/2021 623-100 [id number] / / [id number] Description:36MM POLYETHYLEN E INSERT C-Taper Cocr Lfit Head 36mm/0 Implanted:Qty: 1 on 02/08/2019 by Larry Alexander MD at [facility] [employer] 02/12/2023 [id number] / / [id number] Description:LEFT FEMORAL HEA D 36MM Procedures Procedure Name Priority Date/Time Associated Diagnosis Comments NV DRAIN/INJECT LARGE JOINT/BURSA Routine 09/19/2024 1:43 PM CDT Primary osteoarthritis of left knee PATHOLOGY TISSUE Routine 08/23/2024 12:4 9 PM CDT Cirrhosis of liver without ascites, unspecified hepatic cirrhosis type EGD Routine 08/23/2024 12:39 PM CDT NV ED EGD FLEX TRANSORAL DX 08/23/2024 12:38 PM CDT Cirrhosis of liver without ascites, unspecified hepatic cirrhosis type Special Needs Upper endoscopy Received: Today Viktoriya Kemp RN P [facility] Schedulers - Endoscopy Pool Good afternoon, Please schedule first available with Dr. Miller. Alma Delia Abarca RN Received Date Received Time Jul 09, 2024 12:42 PM HEPATITIS C ANTIBODY Routine 07/14/2017 10:11 PM TIRE TESTER from Last 3 Months or Most Recently Relevant to Health Maintenance Results * NV DRAIN/INJECT LARGE JOINT/BURSA (09/19/2024 1:43 PM CDT) Narrative Larry Alexander MD - 09/19/2024 1:43 PM CDT Larry Alexander MD 09/19/2024 2:30 PM Orthopaedic Surgery Procedure Note Mason Jang [id number] Diagnosis: Left knee pain Procedure: Injection of [...] CDT) Case Report Surgical Pathology Report Case: [id number] Authorizing Provider: Angela Twin Torojames, Collected: 08/23/2024 12:49 PM Ordering Location: [facility] Received: 08/23/2024 01:34 PM Pathologist: Paz Claudio MD Specimen: Gastric, Gastric biopsies r/o h.pylori 09/02/2024 3:20 PM CDT [facility] Final Diagnosis Stomach, r/o H. pylori, biopsy (A): - Oxyntic mucosa: proton pump inhibitor effect - Antral mucosa: chronic gastropathy - Negative for H. pylori on H and E and on H. pylori immunostain 09/02/2024 3:20 PM CDT [facility] at 1520 CDT Microscopic Description and Comment Microscopic examination substantiates the final diagnosis. Controls stained appropriately. 09/02/2024 3:20 PM CDT [facility] Clinical History 73 year old man with cirrhosis, esophageal varices. EGD: moderate inflammation, friable granular mucosa in antrum. Also, portal hypertensive gastropathy. 09/02/2024 3:20 PM CDT [facility] Gross Description The requisition and specimen(s) are identified with the patient's name Mason Jang. Received in formalin, specimen A, are 4 pink-poe tissues, 0.2-0.3 cm in greatest dimension and 1.0 x 0.2 x 0.2 cm in aggregate, submitted in toto in cassette A1. DF 09/02/2024 3:20 PM CDT [facility] Pathologist Location at [facility] 09/02/2024 3:20 PM CDT [facility] Disclaimer The performance characteristics of all immunohistochemical and indirect immunofluorescence stains (if any) cited in this report were determined by the Histopathology Laboratory of [facility]. Some of these tests were developed [...] (teaching) pathologist. 09/02/2024 3:20 PM CDT [facility] Embedded Images 09/02/2024 3:20 PM CDT [facility] Biopsy, NOS GASTRIC CONTENTS SPECIMEN / Unknown 08/23/2024 12:49 PM CDT 08/23/2024 1:34 PM CDT us Twin Miller MD LAB - PATHOLOGY/CYTOLO GY ORDERABLES Final Result [facility] [address] [place] [address], [facility] [phone] * EGD (08/23/2024 12:39 PM CDT) Report [...] entire procedure. Procedure Code(s): --- Professional --- 73290, Esophagogastroduo denoscopy, flexible, transoral; with biopsy, single or multiple Diagnosis Code(s): --- Professional --- I85.00, Esophageal varices without bleeding K29.70, Gastritis, unspecified, without bleeding K76.6, Portal hypertension K31.89, Other diseases of stomach and duodenum CPT copyright 2021 [employer]. All rights reserved. The codes documented in this report are preliminary and upon bulldozer engineer review may be revised to meet current compliance requirements. Twin Miller, 08/23/2024 12:55:22 PM Note Initiated On: 08/23/2024 12:39 PM Number of Addenda: [id number] [place] [address] PROVATION 08/23/2024 12:3 9 PM CDT us Twin Miller MD GI PROCEDURE ORDERABLE S Edited Result - Final [facility] PROVATION * HEPATITIS C ANTIBODY (07/14/2017 10:11 PM TIRE TESTER) Hepatitis C Antibody Non-react marlee Non-reac tive [facility] Comment: Hepatitis C Antibody screen indicates no serologic evidence of past or current infection with Hepatitis C Virus. Patients with unexplained liver disease who are immunocompromised or suspected of having acute Hepatitis C infection may benefit from Nucleic Acid Test (SUNIL) for Hepatitis C Viral RNA to confirm Hepatitis C status. 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 Comment:-rectal screen 04/201904/29/2019 10/17/[address] [place] [address] [employer] MED[employer]ARE ADV SELF PAY NO INSURANCE Member Subscriber Plan / Payer (Ef fective for All Dates) Name:Mason Jang Member ID:Not on file Relation to Subscriber:Not on file Name:MASON JANG Subscriber ID:Not on file (Home) Address: [place] [address] Payer ID:Not on file Group ID:Not on file Type:Self Pay Address: [place], [place] [employer] Advance Directives * Full Code [...] 2:01 PM 09/09/2017 2:08 PM Care Teams Cattle Manager Relationship Specialty Start Date End Date Cleo Funk DO [address] [place] [address] PCP - General Family Medicine 05/15/24
--- NOTE | 2024-11-05 19:12 | ECG_ITS ---
Test Date: 2024-11-05 19:47:35 Measurements Intervals Baldwin Rate: 94 P: 0 NC: 0 QRS: -38 QRSD: 105 T: 83 QT: 330 QTc: 414 Interpretive Statements ATRIAL FIBRILLATION WITH VENTRICULAR PREMATURE COMPLEX LEFT AXIS DEVIATION CANNOT R/O SEPTAL INFARCT, AGE INDETERMINATE BORDERLINE ST-T WAVE ABNORMALITY- HIGH LATERAL LEADS BASELINE ARTIFACT- I, III, AVR, AVL, AVF, V1-V6 ABNORMAL ECG Compared to ECG 05/20/2024 11:07:00 NO SIGNIFICANT CHANGE Electronically Signed On 11-05-2024 20:41:00 CDT by Shane Snowden D.O.
[2024-11-05 20:35] LABS: Basophils Absolute Auto 0.1 K/mm3 (0.0-0.1); Basophils Percent Auto 1.2 % (0.2-1.2); Eosinophils Absolute Auto 0.2 K/mm3 (0-0.3); Eosinophils Percent Auto 2.9 % (0-4.4); Hematocrit 42.1 % (42.0-52.0); Hemoglobin 12.7 g/dL (14.0-18.0); Immature Granulocyte Percent A 3.7 % (0-0.5); Lymphocytes Absolute Auto 0.99 K/mm3 (0.9-3.2); Lymphocytes Percent Auto 12.1 % (18.3-44.2); Mean Corpuscular HGB Conc 30.2 g/dl (32-36); Mean Corpuscular Hemoglobin 30.4 pg (26-34); Mean Corpuscular Volume 100.7 fl (80-100); Monocytes Absolute Auto 1.3 K/mm3 (0.1-0.6); Neutrophils Absolute Auto 5.2 K/mm3 (1.3-6.7); Neutrophils Percent Auto 64.1 % (45.5-73.1); Platelet Count Result 237 k/mm3 (150-375); Red Blood Count 4.18 M/mm3 (4.6-6.20); Red Cell Distribution Width 14.4 % (11.5-14.5); White Blood Count 8.2 K/mm3 (4.5-10.0)
[2024-11-05 20:46] LABS: Alanine Aminotransferase 37 U/L (6-50); Albumin Level 3.9 g/dL (3.5-5.1); Alkaline Phosphatase 201 U/L (38-126); Anion Gap 9 mmol/L (4-12); Aspartate Amino Transferase 40 U/L (17-59); Bilirubin,Total 0.7 mg/dL (0.2-1.3); Blood Urea Nitrogen 48 mg/dL (9-20); Calcium 9.7 mg/dL (8.4-10.2); Carbon Dioxide 30 mmol/L (22-30); Chloride 99 mmol/L (98-107); Estimated CRCL calculation 39 ml/min; Estimated Glomerular Filt Rate 36; Glucose 124 mg/dL (65-110); Potassium 4.7 mmol/L (3.4-5.0); Sodium 138 mmol/L (137-145)
[2024-11-05] MEDS: IPRATROPIUM BR 0.02% INH SOLN 0.5 MG/2.5 ML VIAL 1.5 MG INHALATION (21:57)
[2024-11-05] MEDS: LEVALBUTEROL NEB 1.25 MG/3 ML 2.5 MG INHALATION (21:57)
--- NOTE | 2024-11-05 21:59 | ED.SOB ---
HPI - SOB/Dyspnea General Chief Complaint: Shortness of Breath/Dyspnea <TORO Barkley Last Filed: 11/06/24 02:01> Stated Complaint: Shortness of breath-Hx COPD/Home O2 <TORO Barkley Last Filed: 11/06/24 02:01> Time Seen by Provider: 11/05/24 21:29 <TORO Barkley Last Filed: 11/06/24 02:01> Source: patient and old records reviewed <TORO Barkley Last Filed: 11/06/24 02:01> Mode of arrival: ambulatory <TORO Barkley Filed: 11/06/24 02:01> Limitations: no limitations <TORO Barkley Last Filed: 11/06/24 02:01> History of Present Illness HPI Narrative: Patient is a 73 y/o male, with PMH of COPD on chronic home O2 2L, CHF, AFIB on eliquis, VALENTINA on bipap, CKD, who presents to the ED with c/o SOB. Patient reports he began feeling increasingly short of breath yesterday into today. Worse with exertion. Also reports productive cough since yesterday. reports she was ill with similar URI last week and their son who they live with was recently diagnosed with PNA. Patient denies fevers. Denies CP. Denies significant swelling in legs. Has had some redness to LLE. Hx of cellulitis. at bedside reports that patient had been using her is inhaler multiple times today without improvement of his breathing and had increased his home oxygen from 2-4 L. <TORO Barkley Last Filed: 11/06/24 02:01> Related Data Home Medications: Home Medications ?Medication ?Instructions ?Recorded ?Confirmed ?Last Taken ?Type ferrous sulfate 324 mg (65 mg 324 mg PO DAILY 04/05/19 11/06/24 11/05/24 History iron) tablet,delayed release tamsulosin 0.4 mg capsule (Flomax) 0.4 mg PO HS 04/05/19 11/06/24 11/05/24 History aspirin 81 mg tablet,delayed 81 mg PO HS 05/21/19 11/06/24 11/05/24 History release cetirizine 10 mg tablet 10 mg PO Q12H 08/04/19 11/06/24 11/05/24 History acetaminophen 325 mg capsule 650 mg PO Q4H PRN Pain 03/17/20 11/06/24 05/27/24 21:20 History magnesium oxide 400 mg PO BID 03/04/21 11/06/24 11/05/24 History pyridoxine (vitamin B6) 100 mg 100 mg PO DAILY 03/04/21 11/06/24 11/05/24 History tablet cholecalciferol (vitamin D3) 25 25 mcg PO HS 03/03/23 11/06/24 11/05/24 History mcg (1,000 unit) capsule folic acid 400 mcg tablet 0.4 mg PO DAILY 08/23/23 11/06/24 11/05/24 History omeprazole 40 mg capsule,delayed 40 mg PO DAILY 12/27/23 11/06/24 11/05/24 History release fluticasone propionate 50 2 spray intranasal DAILY 01/19/24 11/06/24 11/05/24 History mcg/actuation nasal spray,suspension (Allergy Relief (fluticasone)) gabapentin 300 mg capsule 300 mg PO BID 01/19/24 11/06/24 11/05/24 History benzonatate 200 mg capsule 200 mg PO TID PRN cough 05/14/24 11/06/24 Unknown History diclofenac sodium 3 % topical gel 1 applic topical ONCE PRN pain 05/20/24 11/06/24 Unknown History hydrocortisone 1 % topical cream 1 applic topical DAILY PRN itching 05/20/24 11/06/24 Unknown History (Anti-Itch (hydrocortisone)) lanolin alcohols-mineral 1 applic topical DAILY 05/20/24 11/06/24 11/05/24 History oil-w.petrolatum-ceresin topical cream (Eucerin topical cream) lidocaine 4 % topical patch 1 patch topical DAILY PRN pain 05/20/24 11/06/24 Unknown History (Lidocaine Pain Relief) triamcinolone acetonide 0.1 % 1 applic topical DAILY 05/20/24 11/06/24 11/05/24 History topical cream budesonide 0.5 mg/2 mL suspension 0.5 mg inhalation BID 10/08/24 11/06/24 11/05/24 History for nebulization ipratropium 0.5 mg-albuterol 3 mg 3 ml inhalation Q6H 10/08/24 11/06/24 11/05/24 History (2.5 mg base)/3 mL nebulization soln Lactobacillus acidophilus 1 tablet PO TID 11/06/24 11/06/24 11/05/24 History fluconazole 200 mg tablet 200 mg PO WEEKLY 11/06/24 11/06/24 11/03/24 History (Diflucan) <Loretta Yanez PA-C - Last Filed: 11/06/24 02:01> Allergies/Adverse Reactions: Allergies Allergy/AdvReac Type Severity Reaction Status Date / Time clindamycin Allergy Intermediate Rash Verified 11/06/24 02:04 levofloxacin Allergy Intermediate Swelling Verified 11/06/24 02:04 of the Eye Penicillins Allergy Intermediate Hives Verified 11/06/24 02:04 scopolamine Allergy Mild Hallucinati Verified 11/06/24 02:04 ng tobramycin Allergy Mild EYE REDNESS Verified 11/06/24 02:04 pepper (genus Capsicum) AdvReac Intermediate Nausea and Verified 11/06/24 02:04 Vomiting dust mites Allergy Swelling Uncoded 11/06/24 02:04 cats AdvReac Mild REDNESS OF Uncoded 11/06/24 02:04 THE EYES/WATERING <Loretta Yanez PA-C - Last Filed: 11/06/24 02:01> Review of Systems Review of Systems: All systems reviewed & are unremarkable except as noted in HPI. <Loretta Yanez PA-C - Last Filed: 11/06/24 02:01> All systems reviewed & are unremarkable except as noted in HPI and below <Loretta Yanez PA-C - Last Filed: 11/06/24 02:01> [facility] Past Medical History Medical History: Medical History (Updated 11/06/24 @ 04:14 by Jannet Myles PA-C) Chronic hypoxic respiratory failure, on home oxygen therapy Chronic kidney disease, stage 3 Chronic anemia Liver cirrhosis secondary to nonalcoholic steatohepatitis (RAYGOZA) Methicillin resistant Staphylococcus aureus infection The patient had a spinal abscess L1-L2 complicated was septicemia and then had 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 On long-term doxycycline. Chronic venous stasis dermatitis of both lower extremities Duodenal ulcer Iron (Fe) deficiency anemia Chronic anticoagulation Deep venous thrombosis Cerebrovascular accident Gastroesophageal reflux disease Chronic obstructive pulmonary disease Benign prostatic hyperplasia Obstructive sleep apnea treated with BiPAP with bleed in oxygen of 2 L Paroxysmal atrial fibrillation Obesity (BMI 30-39.9) Eczema Chronic diastolic heart failure Echocardiogram 10/2023 demonstrated EF of 60-65% grade 1 diastolic dysfunction, atrial fibrillation, by atrial enlargement difficult study Pneumothorax on left <Loretta Yanez PA-C - Last Filed: 11/06/24 02:01> Surgical History Surgical History: Surgical History History of cataract extraction with lens replacement History of bilateral hip replacements History of colonoscopy with polypectomy History of tracheostomy Status post excision of lipoma Neck. History of back surgery History of revision of total replacement of hip joint <Loretta Yanez PA-C - Last Filed: 11/06/24 02:01> Family History Family History: Family History Mother Family history of cardiovascular disease Family history of coronary artery disease Father Family history of liver disease Sibling Hypertension Cerebrovascular accident Chronic obstructive pulmonary disease <Loretta Yanez PA-C - Last Filed: 11/06/24 02:01> Social History Social History: Social History Social History: Surrogate medical decision maker: Trinity Keys (Cathy), spouse. Code status: Full code. Smoking packs per day: 1 Smoking cigarettes per day: 20.0 Years smoked: 9 Smoking pack-years: 9.00 Smoking status: Former smoker Tobacco type: cigarettes Smokeless tobacco user: chewing tobacco Smoking end date: 06/06/81 Additional smoking assessment comments: He quit smoking when he was told he had COPD. Alcohol intake: current Substance use: never Substance use type: does not use Other substance usage details: Holidays Do You Feel Safe in your Home?: Yes Lack of Transportation: No Lack of Food: Never True Current Housing: I Have Housing Concerned About Future Housing: No Difficulty Paying Gas/Electric Bills: No Difficulty Paying for Meds: No Currently Unemployed: No Education: Bachelor's Degree Difficulty w/ Childcare or Family Care: No Living arrangements: with family Additional living arrangements comments: Lives with spouse in [place]. They have been since 1973. They have a daughter and a son. 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 [place] [employer] . Spiritual care concerns: No Agree to blood products: Yes <Loretta Yanez PA-C - Last Filed: 11/06/24 02:01> Exam Narrative: GENERAL: Elderly, chronically ill-appearing, obese with BMI of 32.6, non-toxic, in mild acute resp distress. HEAD: Normocephalic, atraumatic. RESPIRATORY: Airway patent, respirations tachypneic and labored. Decreased air movement throughout. Diffuse expiratory wheezing. No stridor. CARDIOVASCULAR: Borderline tachycardic with irregular rhythm without murmurs, rubs, or gallops. Peripheral pulses intact. MUSCULOSKELETAL: Moves all extremities. No gross deformities. Bilateral trace pitting edema. Diffuse erythema to L lower anterior leg, minimal warmth. Small scabbed abrasions w/o drainage. SKIN: Warm, dry, normal color. NEURO: A&O X3. Speech clear. No ataxic movements. PSYCHIATRIC: Appropriate mood and affect. Normal interaction. <Loretta Yanez PA-C - Last Filed: 11/06/24 02:01> Course [employer]ING CUTTER/PA Physician Supervision I was available for consultation while this patient was in the Emergency Department prior to them being admitted but did not personally examine them and was not directly involved in their care. <Tonie Cruz MD - Last Filed: 11/09/24 11:20> Vital Signs Vital signs: Vital Signs Temperature 97.7 F 11/05/24 18:37 Pulse Rate 86 11/05/24 18:37 Respiratory Rate 19 11/05/24 18:37 Blood Pressure 148/96 H 11/05/24 18:37 Pulse Oximetry 100 11/05/24 18:37 Oxygen Delivery Nasal Cannula 11/05/24 18:37 Oxygen Flow Rate 4 11/05/24 18:37 Temperature 98.3 F 11/09/24 06:00 Pulse Rate 102 H 11/09/24 09:11 Respiratory Rate 20 11/09/24 09:11 Blood Pressure 120/69 11/09/24 06:00 Pulse Oximetry 99 11/09/24 09:01 Oxygen Delivery Nasal Cannula 11/09/24 09:01 Oxygen Flow Rate 2 11/09/24 09:01 Fraction of Inspired Oxygen 28 11/09/24 09:01 <Loretta Yanez PA-C - Last Filed: 11/06/24 02:01> Vital Signs Temperature 97.7 F 11/05/24 18:37 Pulse Rate 86 11/05/24 18:37 Respiratory Rate 19 11/05/24 18:37 Blood Pressure 148/96 H 11/05/24 18:37 Pulse Oximetry 100 11/05/24 18:37 Oxygen Delivery Nasal Cannula 11/05/24 18:37 Oxygen Flow Rate 4 11/05/24 18:37 Temperature 98.3 F 11/09/24 06:00 Pulse Rate 102 H 11/09/24 09:11 Respiratory Rate 20 11/09/24 09:11 Blood Pressure 120/69 11/09/24 06:00 Pulse Oximetry 99 11/09/24 09:01 Oxygen Delivery Nasal Cannula 11/09/24 09:01 Oxygen Flow Rate 2 11/09/24 09:01 Fraction of Inspired Oxygen 28 11/09/24 09:01 <Tonie Cruz MD - Last Filed: 11/09/24 11:20> MDM - SOB/Dyspnea MDM Narrative Medical decision making narrative: Patient presented to ED with increased shortness of breath. History of COPD, on chronic home oxygen therapy, has required increase of oxygen therapy at home. Patient tachypneic upon arrival, borderline tachycardic. Oxygen saturating well on 4 L, increased from his normal 2 L. EKG with AFib, nonspecific ST changes. Patient does have known history of AFib. On metoprolol and Eliquis. Baseline troponin is 0.024. Patient is denying chest pain at this time. BNP is elevated to 3700. Chest x-ray with some pulmonary edema versus atypical infection versus bronchiolitis. Patient does have some peripheral edema on exam. History of CHF. On Bumex. Given nighttime dose of Bumex. ABG without significant CO2 retention. Cbc without leukocytosis. Stable H&H. CMP with CKD, appears fairly consistent with previous records. Viral swabs were negative. Patient given hour long nebulizer treatment in the ED in addition to Solu-Medrol. He reports mild improvement on re-evaluation, but still very wheezy with decreased air movement. He was started on antibiotics for CAP given new productive cough, increasing o2 requirements, close exposure to PNA, severe underlying lung disease. Blood cultures were obtained. Feel patient would benefit from continued nebulizers and steroids and abx. Discussed case with Jannet NORIEGA hospitalist, accepted patient for admission. Patient and family in agreement with plan and need for admission. Exam did reveal possible cellulitis of left leg. Will discuss with hospitalist for antibiotic treatment. <Loretta Yanez PA-C - Last Filed: 11/06/24 02:01> Medical Records Attestation: I reviewed the patient's medical records. <TORO Barkley Last Filed: 11/06/24 02:01> Lab Data Attestation: I reviewed the patient's lab results. <TORO Barkley Last Filed: 11/06/24 02:01> Result diagrams: 11/09/24 05:49 11/09/24 05:49 <TORO Barkley Last Filed: 11/06/24 02:01> Labs: Lab Results 11/05/24 11/05/24 11/05/24 Range/Units 20:14 21:59 22:03 WBC 8.2 (4.5-10.0) K/mm3 RBC 4.18 L (4.6-6.20) M/mm3 Hgb 12.7 L (14.0-18.0) g/dL Hct 42.1 (42.0-52.0) % MCV 100.7 H (80-100) fl MCH 30.4 (26-34) pg MCHC 30.2 L (32-36) g/dl RDW 14.4 (11.5-14.5) % Plt Count 237 D (150-375) k/mm3 MPV 12.0 H (7.4-10.4) fl Immature Gran % (Auto) 3.7 H (0-0.5) % Neut % (Auto) 64.1 (45.5-73.1) % Lymph % (Auto) 12.1 L (18.3-44.2) % Calvert % (Auto) 16.0 H (2.6-8.5) % Eos % (Auto) 2.9 (0-4.4) % Baso % (Auto) 1.2 (0.2-1.2) % Lymph # (Auto) 0.99 (0.9-3.2) K/mm3 Calvert # (Auto) 1.3 H (0.1-0.6) K/mm3 Eos # (Auto) 0.2 (0-0.3) K/mm3 Baso # (Auto) 0.1 (0.0-0.1) K/mm3 Abs Immat Gran (auto) 0.30 H (0.00-0.031) K/mm3 Absolute Neuts (auto) 5.2 (1.3-6.7) K/mm3 Absolute Nucleated RBC 0.000 (0.0-0.012) K/mm3 Total Counted Neutrophils % (Manual) (46-73) % Band Neutrophils % (0-6) % Lymphocytes % (Manual) (18-44) % Monocytes % (Manual) (3-9) % Nucleated RBC % 0.0 (0.0-0.2) % Abs Neuts (Manual) (1.3-6.7) K/mm3 Abs Lymphs (Manual) (1.1-4.5) K/mm3 Abs Monocytes (Manual) (0.1-0.90) K/mm3 Platelet Estimate (Adequate) Anisocytosis Schistocytes Methemoglobin 0.1 (0-1.5) %THb Sodium 138 (137-145) mmol/L Potassium 4.7 (3.4-5.0) mmol/L Chloride 99 (98-107) mmol/L Carbon Dioxide 30 (22-30) mmol/L Anion Gap 9 (4-12) mmol/L BUN 48 H (9-20) mg/dL Creatinine 1.85 H (0.7-1.3) mg/dL Estim Creat Clear Calc 39 ml/min Estimated GFR 36 L (59 - ) Glucose 124 H (65-110) mg/dL POC Capillary Glucose (65-105) mg/dl Calcium 9.7 (8.4-10.2) mg/dL Magnesium (1.6-2.3) mg/dL Total Bilirubin 0.7 (0.2-1.3) mg/dL AST 40 (17-59) U/L ALT 37 (6-50) U/L Alkaline Phosphatase 201 H (38-126) U/L Troponin I 0.024 (0.000-0.034) ng/mL NT-Pro-B Natriuret Pep 3700 H (19.9-100) pg/mL Total Protein 7.0 (6.3-8.2) g/dL Albumin 3.9 (3.5-5.1) g/dL Procalcitonin ng/mL Nasal MRSA (PCR) (NOT DETECTE) Influenza A (RT-PCR) (Negative) Influenza B (RT-PCR) (Negative) Ur L.pneumophila Ag Mycoplasma pneumon IgM RSV (RT-PCR) (Negative) SARS-CoV-2 RNA (RT-PCR) (Negative) Urine Pneumococcal Ag 11/06/24 11/06/24 11/06/24 Range/Units 00:12 01:31 01:41 WBC (4.5-10.0) K/mm3 RBC (4.6-6.20) M/mm3 Hgb (14.0-18.0) g/dL Hct (42.0-52.0) % MCV (80-100) fl MCH (26-34) pg MCHC (32-36) g/dl RDW (11.5-14.5) % Plt Count (150-375) k/mm3 MPV (7.4-10.4) fl Immature Gran % (Auto) (0-0.5) % Neut % (Auto) (45.5-73.1) % Lymph % (Auto) (18.3-44.2) % Calvert % (Auto) (2.6-8.5) % Eos % (Auto) (0-4.4) % Baso % (Auto) (0.2-1.2) % Lymph # (Auto) (0.9-3.2) K/mm3 Calvert # (Auto) (0.1-0.6) K/mm3 Eos # (Auto) (0-0.3) K/mm3 Baso # (Auto) (0.0-0.1) K/mm3 Abs Immat Gran (auto) (0.00-0.031) K/mm3 Absolute Neuts (auto) (1.3-6.7) K/mm3 Absolute Nucleated RBC (0.0-0.012) K/mm3 Total Counted Neutrophils % (Manual) (46-73) % Band Neutrophils % (0-6) % Lymphocytes % (Manual) (18-44) % Monocytes % (Manual) (3-9) % Nucleated RBC % (0.0-0.2) % Abs Neuts (Manual) (1.3-6.7) K/mm3 Abs Lymphs (Manual) (1.1-4.5) K/mm3 Abs Monocytes (Manual) (0.1-0.90) K/mm3 Platelet Estimate (Adequate) Anisocytosis Schistocytes Methemoglobin (0-1.5) %THb Sodium (137-145) mmol/L Potassium (3.4-5.0) mmol/L Chloride (98-107) mmol/L Carbon Dioxide (22-30) mmol/L Anion Gap (4-12) mmol/L BUN (9-20) mg/dL Creatinine (0.7-1.3) mg/dL Estim Creat Clear Calc ml/min Estimated GFR (59 - ) Glucose (65-110) mg/dL POC Capillary Glucose (65-105) mg/dl Calcium (8.4-10.2) mg/dL Magnesium (1.6-2.3) mg/dL Total Bilirubin (0.2-1.3) mg/dL AST (17-59) U/L ALT (6-50) U/L Alkaline Phosphatase (38-126) U/L Troponin I 0.022 (0.000-0.034) ng/mL NT-Pro-B Natriuret Pep (19.9-100) pg/mL Total Protein (6.3-8.2) g/dL Albumin (3.5-5.1) g/dL Procalcitonin ng/mL Nasal MRSA (PCR) Detected A* (NOT DETECTE) Influenza A (RT-PCR) Negative (Negative) Influenza B (RT-PCR) Negative (Negative) Ur L.pneumophila Ag Mycoplasma pneumon IgM Pending RSV (RT-PCR) Negative (Negative) SARS-CoV-2 RNA (RT-PCR) Negative (Negative) Urine Pneumococcal Ag 11/06/24 11/06/24 11/06/24 Range/Units 04:09 05:30 08:28 WBC 7.8 (4.5-10.0) K/mm3 RBC 3.95 L (4.6-6.20) M/mm3 Hgb 12.1 L (14.0-18.0) g/dL Hct 39.9 L (42.0-52.0) % MCV 101.0 H (80-100) fl MCH 30.6 (26-34) pg MCHC 30.3 L (32-36) g/dl RDW 14.5 (11.5-14.5) % Plt Count 245 (150-375) k/mm3 MPV 12.3 H (7.4-10.4) fl Immature Gran % (Auto) Not Reportable (0-0.5) % Neut % (Auto) Not Reportable (45.5-73.1) % Lymph % (Auto) Not Reportable (18.3-44.2) % Calvert % (Auto) Not Reportable (2.6-8.5) % Eos % (Auto) Not Reportable (0-4.4) % Baso % (Auto) Not Reportable (0.2-1.2) % Lymph # (Auto) Not Reportable (0.9-3.2) K/mm3 Calvert # (Auto) Not Reportable (0.1-0.6) K/mm3 Eos # (Auto) Not Reportable (0-0.3) K/mm3 Baso # (Auto) Not Reportable (0.0-0.1) K/mm3 Abs Immat Gran (auto) Not Reportable (0.00-0.031) K/mm3 Absolute Neuts (auto) Not Reportable (1.3-6.7) K/mm3 Absolute Nucleated RBC Not Reportable (0.0-0.012) K/mm3 Total Counted 100 Neutrophils % (Manual) 84 H (46-73) % Band Neutrophils % 10 H (0-6) % Lymphocytes % (Manual) 4.0 L (18-44) % Monocytes % (Manual) 2 L (3-9) % Nucleated RBC % Not Reportable (0.0-0.2) % Abs Neuts (Manual) 7.33 H (1.3-6.7) K/mm3 Abs Lymphs (Manual) 0.31 L (1.1-4.5) K/mm3 Abs Monocytes (Manual) 0.15 (0.1-0.90) K/mm3 Platelet Estimate Adequate (Adequate) Anisocytosis 1+ Schistocytes None seen Methemoglobin (0-1.5) %THb Sodium 137 (137-145) mmol/L Potassium 4.3 (3.4-5.0) mmol/L Chloride 101 (98-107) mmol/L Carbon Dioxide 29 (22-30) mmol/L Anion Gap 7 (4-12) mmol/L BUN 47 H (9-20) mg/dL Creatinine 1.76 H (0.7-1.3) mg/dL Estim Creat Clear Calc 41 ml/min Estimated GFR 38 L (59 - ) Glucose 193 H (65-110) mg/dL POC Capillary Glucose 165 H (65-105) mg/dl Calcium 9.3 (8.4-10.2) mg/dL Magnesium 2.0 (1.6-2.3) mg/dL Total Bilirubin 0.6 (0.2-1.3) mg/dL AST 38 (17-59) U/L ALT 33 (6-50) U/L Alkaline Phosphatase 181 H (38-126) U/L Troponin I 0.034 D (0.000-0.034) ng/mL NT-Pro-B Natriuret Pep (19.9-100) pg/mL Total Protein 7.0 (6.3-8.2) g/dL Albumin 3.6 (3.5-5.1) g/dL Procalcitonin 0.3 ng/mL Nasal MRSA (PCR) (NOT DETECTE) Influenza A (RT-PCR) (Negative) Influenza B (RT-PCR) (Negative) Ur L.pneumophila Ag Not detected Mycoplasma pneumon IgM RSV (RT-PCR) (Negative) SARS-CoV-2 RNA (RT-PCR) (Negative) Urine Pneumococcal Ag Not detected <Loretta Yanez PA-C - Last Filed: 11/06/24 02:01> Lab Results 11/05/24 11/05/24 11/05/24 Range/Units 20:14 21:59 22:03 WBC 8.2 (4.5-10.0) K/mm3 RBC 4.18 L (4.6-6.20) M/mm3 Hgb 12.7 L (14.0-18.0) g/dL Hct 42.1 (42.0-52.0) % MCV 100.7 H (80-100) fl MCH 30.4 (26-34) pg MCHC 30.2 L (32-36) g/dl RDW 14.4 (11.5-14.5) % Plt Count 237 D (150-375) k/mm3 MPV 12.0 H (7.4-10.4) fl Immature Gran % (Auto) 3.7 H (0-0.5) % Neut % (Auto) 64.1 (45.5-73.1) % Lymph % (Auto) 12.1 L (18.3-44.2) % Calvert % (Auto) 16.0 H (2.6-8.5) % Eos % (Auto) 2.9 (0-4.4) % Baso % (Auto) 1.2 (0.2-1.2) % Lymph # (Auto) 0.99 (0.9-3.2) K/mm3 Calvert # (Auto) 1.3 H (0.1-0.6) K/mm3 Eos # (Auto) 0.2 (0-0.3) K/mm3 Baso # (Auto) 0.1 (0.0-0.1) K/mm3 Abs Immat Gran (auto) 0.30 H (0.00-0.031) K/mm3 Absolute Neuts (auto) 5.2 (1.3-6.7) K/mm3 Absolute Nucleated RBC 0.000 (0.0-0.012) K/mm3 Total Counted Neutrophils % (Manual) (46-73) % Band Neutrophils % (0-6) % Lymphocytes % (Manual) (18-44) % Monocytes % (Manual) (3-9) % Nucleated RBC % 0.0 (0.0-0.2) % Abs Neuts (Manual) (1.3-6.7) K/mm3 Abs Lymphs (Manual) (1.1-4.5) K/mm3 Abs Monocytes (Manual) (0.1-0.90) K/mm3 Platelet Estimate (Adequate) Anisocytosis Schistocytes Methemoglobin 0.1 (0-1.5) %THb Sodium 138 (137-145) mmol/L Potassium 4.7 (3.4-5.0) mmol/L Chloride 99 (98-107) mmol/L Carbon Dioxide 30 (22-30) mmol/L Anion Gap 9 (4-12) mmol/L BUN 48 H (9-20) mg/dL Creatinine 1.85 H (0.7-1.3) mg/dL Estim Creat Clear Calc 39 ml/min Estimated GFR 36 L (59 - ) Glucose 124 H (65-110) mg/dL POC Capillary Glucose (65-105) mg/dl Calcium 9.7 (8.4-10.2) mg/dL Magnesium (1.6-2.3) mg/dL Total Bilirubin 0.7 (0.2-1.3) mg/dL AST 40 (17-59) U/L ALT 37 (6-50) U/L Alkaline Phosphatase 201 H (38-126) U/L Troponin I 0.024 (0.000-0.034) ng/mL NT-Pro-B Natriuret Pep 3700 H (19.9-100) pg/mL Total Protein 7.0 (6.3-8.2) g/dL Albumin 3.9 (3.5-5.1) g/dL Procalcitonin ng/mL Nasal MRSA (PCR) (NOT DETECTE) Influenza A (RT-PCR) (Negative) Influenza B (RT-PCR) (Negative) Ur L.pneumophila Ag Mycoplasma pneumon IgM RSV (RT-PCR) (Negative) SARS-CoV-2 RNA (RT-PCR) (Negative) Urine Pneumococcal Ag 11/06/24 11/06/24 11/06/24 Range/Units 00:12 01:31 01:41 WBC (4.5-10.0) K/mm3 RBC (4.6-6.20) M/mm3 Hgb (14.0-18.0) g/dL Hct (42.0-52.0) % MCV (80-100) fl MCH (26-34) pg MCHC (32-36) g/dl RDW (11.5-14.5) % Plt Count (150-375) k/mm3 MPV (7.4-10.4) fl Immature Gran % (Auto) (0-0.5) % Neut % (Auto) (45.5-73.1) % Lymph % (Auto) (18.3-44.2) % Calvert % (Auto) (2.6-8.5) % Eos % (Auto) (0-4.4) % Baso % (Auto) (0.2-1.2) % Lymph # (Auto) (0.9-3.2) K/mm3 Calvert # (Auto) (0.1-0.6) K/mm3 Eos # (Auto) (0-0.3) K/mm3 Baso # (Auto) (0.0-0.1) K/mm3 Abs Immat Gran (auto) (0.00-0.031) K/mm3 Absolute Neuts (auto) (1.3-6.7) K/mm3 Absolute Nucleated RBC (0.0-0.012) K/mm3 Total Counted Neutrophils % (Manual) (46-73) % Band Neutrophils % (0-6) % Lymphocytes % (Manual) (18-44) % Monocytes % (Manual) (3-9) % Nucleated RBC % (0.0-0.2) % Abs Neuts (Manual) (1.3-6.7) K/mm3 Abs Lymphs (Manual) (1.1-4.5) K/mm3 Abs Monocytes (Manual) (0.1-0.90) K/mm3 Platelet Estimate (Adequate) Anisocytosis Schistocytes Methemoglobin (0-1.5) %THb Sodium (137-145) mmol/L Potassium (3.4-5.0) mmol/L Chloride (98-107) mmol/L Carbon Dioxide (22-30) mmol/L Anion Gap (4-12) mmol/L BUN (9-20) mg/dL Creatinine (0.7-1.3) mg/dL Estim Creat Clear Calc ml/min Estimated GFR (59 - ) Glucose (65-110) mg/dL POC Capillary Glucose (65-105) mg/dl Calcium (8.4-10.2) mg/dL Magnesium (1.6-2.3) mg/dL Total Bilirubin (0.2-1.3) mg/dL AST (17-59) U/L ALT (6-50) U/L Alkaline Phosphatase (38-126) U/L Troponin I 0.022 (0.000-0.034) ng/mL NT-Pro-B Natriuret Pep (19.9-100) pg/mL Total Protein (6.3-8.2) g/dL Albumin (3.5-5.1) g/dL Procalcitonin ng/mL Nasal MRSA (PCR) Detected A* (NOT DETECTE) Influenza A (RT-PCR) Negative (Negative) Influenza B (RT-PCR) Negative (Negative) Ur L.pneumophila Ag Mycoplasma pneumon IgM Pending RSV (RT-PCR) Negative (Negative) SARS-CoV-2 RNA (RT-PCR) Negative (Negative) Urine Pneumococcal Ag 11/06/24 11/06/24 11/06/24 Range/Units 04:09 05:30 08:28 WBC 7.8 (4.5-10.0) K/mm3 RBC 3.95 L (4.6-6.20) M/mm3 Hgb 12.1 L (14.0-18.0) g/dL Hct 39.9 L (42.0-52.0) % MCV 101.0 H (80-100) fl MCH 30.6 (26-34) pg MCHC 30.3 L (32-36) g/dl RDW 14.5 (11.5-14.5) % Plt Count 245 (150-375) k/mm3 MPV 12.3 H (7.4-10.4) fl Immature Gran % (Auto) Not Reportable (0-0.5) % Neut % (Auto) Not Reportable (45.5-73.1) % Lymph % (Auto) Not Reportable (18.3-44.2) % Calvert % (Auto) Not Reportable (2.6-8.5) % Eos % (Auto) Not Reportable (0-4.4) % Baso % (Auto) Not Reportable (0.2-1.2) % Lymph # (Auto) Not Reportable (0.9-3.2) K/mm3 Calvert # (Auto) Not Reportable (0.1-0.6) K/mm3 Eos # (Auto) Not Reportable (0-0.3) K/mm3 Baso # (Auto) Not Reportable (0.0-0.1) K/mm3 Abs Immat Gran (auto) Not Reportable (0.00-0.031) K/mm3 Absolute Neuts (auto) Not Reportable (1.3-6.7) K/mm3 Absolute Nucleated RBC Not Reportable (0.0-0.012) K/mm3 Total Counted 100 Neutrophils % (Manual) 84 H (46-73) % Band Neutrophils % 10 H (0-6) % Lymphocytes % (Manual) 4.0 L (18-44) % Monocytes % (Manual) 2 L (3-9) % Nucleated RBC % Not Reportable (0.0-0.2) % Abs Neuts (Manual) 7.33 H (1.3-6.7) K/mm3 Abs Lymphs (Manual) 0.31 L (1.1-4.5) K/mm3 Abs Monocytes (Manual) 0.15 (0.1-0.90) K/mm3 Platelet Estimate Adequate (Adequate) Anisocytosis 1+ Schistocytes None seen Methemoglobin (0-1.5) %THb Sodium 137 (137-145) mmol/L Potassium 4.3 (3.4-5.0) mmol/L Chloride 101 (98-107) mmol/L Carbon Dioxide 29 (22-30) mmol/L Anion Gap 7 (4-12) mmol/L BUN 47 H (9-20) mg/dL Creatinine 1.76 H (0.7-1.3) mg/dL Estim Creat Clear Calc 41 ml/min Estimated GFR 38 L (59 - ) Glucose 193 H (65-110) mg/dL POC Capillary Glucose 165 H (65-105) mg/dl Calcium 9.3 (8.4-10.2) mg/dL Magnesium 2.0 (1.6-2.3) mg/dL Total Bilirubin 0.6 (0.2-1.3) mg/dL AST 38 (17-59) U/L ALT 33 (6-50) U/L Alkaline Phosphatase 181 H (38-126) U/L Troponin I 0.034 D (0.000-0.034) ng/mL NT-Pro-B Natriuret Pep (19.9-100) pg/mL Total Protein 7.0 (6.3-8.2) g/dL Albumin 3.6 (3.5-5.1) g/dL Procalcitonin 0.3 ng/mL Nasal MRSA (PCR) (NOT DETECTE) Influenza A (RT-PCR) (Negative) Influenza B (RT-PCR) (Negative) Ur L.pneumophila Ag Not detected Mycoplasma pneumon IgM RSV (RT-PCR) (Negative) SARS-CoV-2 RNA (RT-PCR) (Negative) Urine Pneumococcal Ag Not detected <Tonie Cruz MD - Last Filed: 11/09/24 11:20> ABG Data ABG results: 11/05/24 21:59 Puncture Site Left radial ABG pH 7.382 ABG pCO2 51.3 H ABG pO2 83.8 ABG PO2/FiO2 Ratio 2.62 ABG HCO3 29.8 H ABG O2 Saturation 96.0 ABG O2 Content 17.8 ABG Base Excess 3.7 A-a Gradient 84.3 Oxyhemoglobin 95.4 Carboxyhemoglobin 0.9 Reduced Hemoglobin 3.6 Total Hemoglobin 13.2 O2 Delivery Device Nasal cannula O2 Liters/Min 3.0 FiO2 32 <Loretta Yanez PA-C - Last Filed: 11/06/24 02:01> 11/05/24 21:59 Puncture Site Left radial ABG pH 7.382 ABG pCO2 51.3 H ABG pO2 83.8 ABG PO2/FiO2 Ratio 2.62 ABG HCO3 29.8 H ABG O2 Saturation 96.0 ABG O2 Content 17.8 ABG Base Excess 3.7 A-a Gradient 84.3 Oxyhemoglobin 95.4 Carboxyhemoglobin 0.9 Reduced Hemoglobin 3.6 Total Hemoglobin 13.2 O2 Delivery Device Nasal cannula O2 Liters/Min 3.0 FiO2 32 <Tonie Cruz MD - Last Filed: 11/09/24 11:20> Attestation: I personally reviewed and interpreted this ABG as follows: <Loretta Yanez PA-C - Last Filed: 11/06/24 02:01> Imaging Data Attestation: I personally reviewed and interpreted this imaging study as follows: <Loretta Yanez PA-C - Last Filed: 11/06/24 02:01> Radiologist's impression: ITS Impressions Chest X-Ray 11/05/24 20:15 IMPRESSION: Pulmonary opacities may represent edema, respiratory bronchiolitis, or atypical infection. Small left pleural effusion versus chronic pleural blunting. <TORO Barkley Last Filed: 11/06/24 02:01> ECG Data EKG #1: Attestation: I personally reviewed and interpreted this ECG as follows: <TORO Barkley Last Filed: 11/06/24 02:01> ECG completion date: 11/05/24 <TORO Barkley Last Filed: 11/06/24 02:01> ECG completion time: 19:47 <TORO Barkley Last Filed: 11/06/24 02:01> EKG Interpretation: normal rate (94), atrial fibrillation, PVCs, non-specific ST changes and other (baseline artifact) <TORO Barkley Last Filed: 11/06/24 02:01> Discharge Plan Discharge Clinical Impression: Acute on chronic respiratory failure with hypoxia, Acute exacerbation of CHF (congestive heart failure), Acute exacerbation of chronic obstructive pulmonary disease (COPD), Cellulitis of left lower leg <TORO Barkley Last Filed: 11/06/24 02:01> Patient Disposition: Still a Patient <TORO Barkley Last Filed: 11/06/24 02:01> Condition: Stable <TORO Barkley Last Filed: 11/06/24 02:01>
[2024-11-05 22:18] LABS: Alveolar/Arterial O2 Gradient 84.3 mmHg; Base Excess ABG 3.7 mEq/l (+/-2.0); Carboxyhemoglobin 0.9 % THb (0-2.0); Device NASAL CANNULA; Fractional Inspired Oxygen 32 %; HCO3 ABG 29.8 mEq/l (22.0-26.0); Methemoglobin ABG 0.1 %THb (0-1.5); Modified Allen's Test Pass; Oxygen Content ABG 17.8 %vol (16.0-22.0); Oxyhemoglobin 95.4 % THb (90.0-100.0); PCO2 ABG 51.3 mmHg (35.0-45.0); PO2 ABG 83.8 mmHg (80.0-100.0); PO2 FiO2 Ratio Arterial Blood 2.62 %; Reduced Hemoglobin 3.6 %THb (0-5.0); Site Drawn LEFT RADIAL; Total Hemoglobin 13.2 g/dL (12.0-18.0); pH ABG 7.382 (7.350-7.450)
--- OUTSIDE RECORDS SUMMARY | 2024-11-05 22:23 | XMS_ITS | Encounter Summary ---
Author Organization [facility] Address [address] [place] [address] Care Team Providers Care Lokie Driver Name Role Phone Briana Medeiros MD Primary Care Provider [phone] Napoleon Birmingham MD Primary Care Provider [phone] Cleo Funk DO Primary Care Provider + Encounter Details Date Type Department Care Team (Late st Contact Info) Description 10/24/2017 Telephone 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
--- OUTSIDE RECORDS SUMMARY | 2024-11-05 22:23 | XMS_ITS | Clinical Summary ---
Author Organization [facility] [address] Address [address] [place] [address] Care Team Providers Care Waste Reduction Coordinator Name Role Phone Cleo Funk DO Primary [...] [facility] Assessment & Plan (11/05/2017 6:40 AM CDT): Completed debridement, prolonged antibiotic therapy for an L1 diskitis. Continue physical therapy, pain control Pneumonia 10/25/2017 Assessment & Plan (11/09/2017 8:10 AM CDT): Completed treatment for pneumonia, empyema prior to transfer to [facility]. Finished Bactrim for stenotrophomonas pneumonia here. Continue to observe off antibiotics. Chronic atrial fibrillation 02/22/2017 Assessment & Plan (11/09/2017 8:12 AM CDT): Normal sinus rhythm by exam. Monitor for bleeding ( had bleeding around his tracheostomy, skin tears while at [facility]). Continue amiodarone, aspirin, Lipitor, metoprolol, apixaban Encounters Date Type Department Care Team Description 10/01/2024 1:45 PM CDT Office Visit [facility] Cardiology [address] [place] [address] Epi Lake MD Chronic atrial fibrillation (HCC) (Primary Dx) 09/04/2024 3:18 AM CDT - 09/04/2024 11:59 PM CDT Hospital Encounter [facility]) [address] [place] [address] Discharge Disposition: Discharge to home or self care 09/04/2024 3:15 AM CDT - 09/04/2024 11:59 PM CDT Hospital Encounter [facility]) [address] [place] [address] Discharge Disposition: Discharge to home or self care 09/03/2024 3:00 PM CDT Office Visit [facility] Pulmonary [address] [place] [address] for Advanced Medicine 8th [place] [address] [place] [address] Puneet Powell MD Chronic obstructive pulmonary disease, unspecified COPD type (HCC); Pneumonia due to infectious organism, unspecified laterality, unspecified part of lung 09/03/2024 1:15 PM CDT - 09/03/2024 11:59 PM CDT Hospital Encounter [facility] Pulmonary [address] [place] [address] [address] [place] [address] Chronic obstructive pulmonary disease, unspecified COPD type (HCC) Discharge Disposition: Discharge to home or self care 09/03/2024 1:03 PM CDT - 09/03/2024 11:59 PM CDT Hospital Encounter [facility]) [address] [place] [address] Chronic obstructive pulmonary disease, unspecified COPD type (HCC) Discharge Disposition: Discharge to home or self care 09/03/2024 Orders Only [facility] Pulmonary [address] [place] [address] for Advanced Medicine 8th [place] [address] Puneet Powell MD from Last 3 Months [...] on file 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 There will be no report generated by a [facility] Radiologist. Narrative RAD_PACS_[facility] - 09/04/2024 3:18 AM CDT EXAMINATION: Images For Reference Purposes Only Puneet Powell MD [facility] [place] CT PROCEDURES Yajaira l Result Performing Organization Address [facility] de Phone Number [facility]_P[facility] * CT Body Outside Reference (09/04/2024 3:15 AM CDT) Impressions [facility] - 09/04/2024 3:15 AM CDT These images are for Reference purposes only and have not been reviewed by [facility]. There will be no report generated by a [facility] Radiologist. Narrative [facility]_P[facility] - 09/04/2024 3:15 AM CDT EXAMINATION: Images For Reference Purposes Only Puneet Powell MD IM CT PROCEDURES Yajaira l Result Performing Organization Address City/[facility] [[email or web address]] Co de Phone Number [facility]_P[facility] * Pulmonary Function Test - (09/03/2024 2:29 PM CDT) FVC PRE 2.54 L [facility] FVC %PRE PRED 62 % [facility] FVC POST 3.02 L [facility] FVC %POST PRED 74 % [facility] FEV1 PRE 1.25 L [facility] FEV1 %PRE PRED 41 % [facility] FEV1 POST 1.15 L [facility] FEV1 %POST PRED 38 % [facility] FEV1/FVC PRE 49.2 % [facility] FEV1/FVC POST 38.0 % [facility] FRC PL PRE 3.92 L [facility] FRC PL %PRE PRED 100 % [facility] RV PRE 2.28 L [facility] RV %PRE PRED 86 % [facility] TLC PRE 4.95 L [facility] TLC %PRE PRED 68 % [facility] DLCO PRE 6.6 ml/min/mmH g [facility] DLCO %PRE PRED 25 % [facility] FIO2 % 21.00 % [facility] PaO2 74.0 mmHg [facility] PaCO2 47.0 mmHg [facility] pH 7.40 [facility] A-aDO2 POC 17.0 mmHg [facility] METHGB % 0.9 % [facility] COHb POC 1.2 % [facility] HCO3 29.1 mEq/L [facility] Anatomical Region Laterality Modality PFT 09/03/2024 1:29 PM CDT Narrative 09/04/2024 2:16 PM CDT Table formatting from the original result was not included. [facility] Division of Pulmonary & Critical Care Medicine [address] [place] [address]; [facility]; [place] [address]; [phone] Pulmonary Function Laboratory Pulmonary Stress Test Simple/Oxygen [...] with the written final report. PFT performed at:->[facility] Adult PFT Lab- [facility] Procedure:->Oxygen Assessment Titration [...] and %HbO2 is age dependent. However, the [facility] Pulmonary Function Laboratory defines hypoxemia as a PaO2 <56 mm Hg or a %HbO2 <89%. Starting on June of 2024 the [facility] Pulmonary Function Laboratory utilizes race [...] 3 Months Insurance AETNA MEDICARE AETNA MEDICARE [facility] MEDICARE Advance Directives For more information, please contact: [phone] * Full Code (Latest Code Status on File) Date Activated Date Inactivated Comments 10/24/2017 8:34 PM 2017 4:37 PM Care Teams Waste Reduction Coordinator Relationship Specialty Start Date End Date Cleo Funk DO [facility] [place] [address] [place] [id number] PCP - General Family Medicine 03/27/24
--- OUTSIDE RECORDS SUMMARY | 2024-11-05 22:23 | XMS_ITS | Clinical Summary ---
Author Organization [facility] Address [address] [place] [address] Care Team Providers Care Sparker And Patcher Name Role Phone FunkCleo DO Primary Care Provider [phone] Source Comments [facility],non-owned Affiliates and Associated Physician Practices is amultiple site organization consisting of ambulatory clinics and hospital sitesin [place], [place], [place] and [place]. This disclosure is being madepursuant to the Care Everywhere program and may not contain all information available regarding this patient. 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 delirium Tobramycin Eye Itching 10/23/2019 [...] fluticasone propionate (Flonase) 50 MCG/ACT nasal spray [place] 1 (one) spray into each nostril once [...] Description 09/19/2024 2:00 PM CDT Office Visit [facility] - Orthopedic Surgery [facility] [place] [address] Larry Alexander MD Primary osteoarthritis of left knee (Primary Dx) 09/19/2024 Travel 08/23/2024 12:45 PM CDT - 08/23/2024 1:15 PM CDT Surgery [facility] [address] [place] [phone] Twin Miller MD EGD w/ alexus--stay on eliquis 08/23/2024 12:43 PM CDT Anesthesia Event [facility] [address] [place] [phone] Mónica Gold MD 08/23/2024 11:13 AM CDT - 08/23/2024 2:00 PM CDT Hospital Encounter [facility] [address] [place] [phone] Twin Miller MD Surgery General Discharge Disposition: Home or Self Care 08/16/2024 Patient Outreach [facility] [address] [place] [phone] Guadalupe Rick, RN Pre-op Instructions from Last [...] Recorded Patient Health Questionnaire-2 Score 1 05/15/2024 [facility] - Occupational Stress [...] place to sleep or slept in a skilled nursing (including now)? 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 Gender Identity Not on file Sexual Orientation [...] Description 12/25/2024 1:30 PM CDT Office Visit [facility] - Orthopedic Surgery [address] [place] [address] Larry Alexander MD [address] [facility] [address] [place] [address] 03/11/2025 9:30 AM CDT Appointment [facility] [address] [place] [phone] Twin Miller MD [address] [place] [address] [place] [address] 03/11/2025 10:15 AM CDT Appointment [facility] [address] [place] [phone] Twin Miller MD [address] [place] [address] 2L DIV [place] [address] 03/11/2025 11:00 AM CDT Office Visit [facility] - GI [address] [place] [address], [place] [address] Twin Miller MD [address] [place] [address] 2L DIV [place] [address] Health Maintenance Due Date Last Done Comments [...] Management General On track( 025 12:17 PM SOFTWARE ENGINEER MOBILE) No Monty Gentile, RN Note: Expected end [...] you. Interventions: Medical Devices Implanted Type Area Senior Gis Analyst Device Identifier Shelf Expiration Date Model / Serial / Lot Trident 10 Deg X 3 Insert 36mm Id Implanted:Qty: 1 on 02/08/2019 by Larry Alexander MD at [facility] [employer] 06/23/2021 623-100 [id number] / / [id number] Description:36MM POLYETHYLEN E INSERT C-Taper Cocr Lfit Head 36mm/0 Implanted:Qty: 1 on 02/08/2019 by Larry Alexander MD at [facility] [employer] 02/12/2023 06-3600 / / [id number] Description:LEFT FEMORAL HEA D 36MM Procedures Procedure Name Priority Date/Time Associated Diagnosis Comments FL DRAIN/INJECT LARGE JOINT/BURSA Routine 09/19/2024 1:43 PM CDT Primary osteoarthritis of left knee PATHOLOGY TISSUE Routine 08/23/2024 12:4 9 PM CDT Cirrhosis of liver without ascites, unspecified hepatic cirrhosis type EGD Routine 08/23/2024 12:39 PM CDT FL ED EGD FLEX TRANSORAL DX 08/23/2024 12:38 PM CDT Cirrhosis of liver without ascites, unspecified hepatic cirrhosis type Special Needs Upper endoscopy Received: Today Viktoriya Kemp RN P [facility] Schedulers - Endoscopy Pool Good afternoon, Please schedule first available with Dr. Miller. Alma Delia Abarca RN Received Date Received Time Jul 09, 2024 12:42 PM HEPATITIS C ANTIBODY Routine 07/14/2017 10:11 PM SOFTWARE ENGINEER MOBILE from Last 3 Months or Most Recently Relevant to Health Maintenance Results * FL DRAIN/INJECT LARGE JOINT/BURSA (09/19/2024 1:43 PM CDT) Narrative Larry Alexander MD - 09/19/2024 1:43 PM CDT Larry Alexander MD 09/19/2024 2:30 PM Orthopaedic Surgery Procedure Note Mason Jang [id number] Diagnosis: Left knee pain Procedure: Injection of [...] CDT) Case Report Surgical Pathology Report Case: [id number] Authorizing Provider: Angela Twin Torojames, Collected: 08/23/2024 12:49 PM Ordering Location: [facility] Received: 08/23/2024 01:34 PM Pathologist: Paz Claudio MD Specimen: Gastric, Gastric biopsies r/o h.pylori 09/02/2024 3:20 PM CDT [facility] Final Diagnosis Stomach, r/o H. pylori, biopsy (A): - Oxyntic mucosa: proton pump inhibitor effect - Antral mucosa: chronic gastropathy - Negative for H. pylori on H and E and on H. pylori immunostain 09/02/2024 3:20 PM CDT [facility]Y LAB at 1520 CDT Microscopic Description and Comment Microscopic examination substantiates the final diagnosis. Controls stained appropriately. 09/02/2024 3:20 PM CDT [facility] Clinical History 73 year old man with cirrhosis, esophageal varices. EGD: moderate inflammation, friable granular mucosa in antrum. Also, portal hypertensive gastropathy. 09/02/2024 3:20 PM CDT [facility] Gross Description The requisition and specimen(s) are identified with the patient's name Mason Jang. Received in formalin, specimen A, are 4 pink-poe tissues, 0.2-0.3 cm in greatest dimension and 1.0 x 0.2 x 0.2 cm in aggregate, submitted in toto in cassette A1. DF 09/02/2024 3:20 PM CDT [facility] Pathologist Location at [facility] 09/02/2024 3:20 PM CDT [facility] LAB Disclaimer The performance characteristics of all immunohistochemical and indirect immunofluorescence stains (if any) cited in this report were determined by the [facility] of [facility]. Some of these tests were developed by [...] attending (teaching) pathologist. 09/02/2024 3:20 PM CDT [facility] Embedded Images 09/02/2024 3:20 PM CDT [facility] Biopsy, NOS GASTRIC CONTENTS SPECIMEN / Unknown 08/23/2024 12:49 PM CDT 08/23/2024 1:34 PM CDT us Twin Miller MD LAB - PATHOLOGY/CYTOLO GY ORDERABLES Final Result [facility] [address] [place] [address], [facility] [phone] * EGD (08/23/2024 12:39 PM CDT) Report [...] entire procedure. Procedure Code(s): --- Professional --- 07447, Esophagogastroduo denoscopy, flexible, transoral; with biopsy, single or multiple Diagnosis Code(s): --- Professional --- I85.00, Esophageal varices without bleeding K29.70, Gastritis, unspecified, without bleeding K76.6, Portal hypertension K31.89, Other diseases of stomach and duodenum CPT copyright 2021 [employer]. All rights reserved. The codes documented in this report are preliminary and upon lens cleaner review may be revised to meet current compliance requirements. Twin Miller, 08/23/2024 12:55:22 PM Note Initiated On: 08/23/2024 12:39 PM Number of Addenda: [id number] [place] [address] PROVATION 08/23/2024 12:3 9 PM CDT us Twin Miller MD GI PROCEDURE ORDERABLE S Edited Result - Final [facility] * HEPATITIS C ANTIBODY (07/14/2017 10:11 PM SOFTWARE ENGINEER MOBILE) Hepatitis C Antibody Non-react marlee Non-reac tive [facility] Comment: Hepatitis C Antibody screen indicates no serologic evidence of past or current infection with Hepatitis C Virus. Patients with unexplained liver disease who are immunocompromised or suspected of having acute Hepatitis C infection may benefit from Nucleic Acid Test (SUNIL) for Hepatitis C Viral RNA to confirm Hepatitis C status. 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 Comment:-rectal screen 04/201904/29/2019 10/17/[address] [place] [address] [address] [address] AETNA MEDICARE ADV SELF PAY NO INSURANCE Member Subscriber Plan / Payer (Ef fective for All Dates) Name:Mason Jang Member ID:Not on file Relation to Subscriber:Not on file Name:MASON JANG Subscriber ID:Not on file (Home) Address: [place] [address] Payer ID:Not on file Group ID:Not on file Type:Self Pay Address: [place], [place] AETNA Advance Directives * Full Code [...] 2:01 PM 09/09/2017 2:08 PM Care Teams Sparker And Patcher Relationship Specialty Start Date End Date Cleo Funk DO [address] [place] [address] PCP - General Family Medicine 05/15/24
[2024-11-05] MEDS: AZITHROMYCIN 500 MG/NS 250 ML 500 MG/250 ML BAG 250 MG IVPB (22:24)
--- OUTSIDE RECORDS SUMMARY | 2024-11-05 22:24 | XMS_ITS | Referral Summary ---
Author Organization [facility] [address] Address [address] [place] [address] Care Team Providers Care Mechanic And Welder Name Role Phone Cleo Funk DO Primary Care Provider + Encounters Date Type Department Care Team Description 10/01/2024 1:45 PM CDT Office Visit [facility] Cardiology [address] [place] [address] [place]pi [place] MD Chronic atrial fibrillation (HCC) (Primary Dx) 09/04/2024 3:18 AM CDT - 09/04/2024 11:59 PM CDT Hospital Encounter [facility] [address] [place] [address] Discharge Disposition: Discharge to home or self care 09/04/2024 3:15 AM CDT - 09/04/2024 11:59 PM CDT Hospital Encounter [facility] [address] [place] [address] Discharge Disposition: Discharge to home or self care 09/03/2024 Orders Only [facility] Pulmonary [address] [facility] 8th [place] [address] [place] [address] Puneet Powell MD 09/03/2024 1:03 PM CDT - 09/03/2024 11:59 PM CDT Hospital Encounter [facility] [address] [place] [address] Chronic obstructive pulmonary disease, unspecified COPD type (HCC) Discharge Disposition: Discharge to home or self care 09/03/2024 1:15 PM CDT - 09/03/2024 11:59 PM CDT Hospital Encounter [facility] Pulmonary [address] [facility] [address] [place] [address] Chronic obstructive pulmonary disease, unspecified COPD type (HCC) Discharge Disposition: Discharge to home or self care 09/03/2024 3:00 PM CDT Office Visit [facility] [address] [facility] 8th [place] [address] [place] [address] Puneet Powell MD Chronic obstructive pulmonary disease, [...] for diskitis prior to his admission to [facility] Assessment & Plan (11/05/2017 6:40 AM CDT): Completed debridement, prolonged antibiotic therapy for an L1 diskitis. Continue physical therapy, pain control Pneumonia 10/25/2017 Assessment & Plan (11/09/2017 8:10 AM CDT): Completed treatment for pneumonia, empyema prior to transfer to [facility]. Finished Bactrim for stenotrophomonas pneumonia here. Continue to observe off antibiotics. Chronic atrial fibrillation 02/22/2017 Assessment & Plan (11/09/2017 8:12 AM CDT): Normal sinus rhythm by exam. Monitor for bleeding ( had bleeding around his tracheostomy, skin tears while at [facility]). 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 There will be no report generated by a [facility] Radiologist. Narrative [facility] - 09/04/2024 3:18 AM CDT EXAMINATION: Images For Reference Purposes Only us Puneet Powell MD IMG CT PROCEDURES Yajaira pearson Result [facility] * CT Body Outside Reference (09/04/2024 3:15 AM CDT) Impressions [facility] - 09/04/2024 3:15 AM CDT These images are for Reference purposes only and have not been reviewed by [facility]. There will be no report generated by a [facility] Radiologist. Narrative [facility] - 09/04/2024 3:15 AM CDT EXAMINATION: Images For Reference Purposes Only us Puneet Powell MD IMG CT PROCEDURES Yajaira lili Result [facility] * Pulmonary Function Test - (09/03/2024 2:29 PM CDT) FVC PRE 2.54 L [facility] FVC %PRE PRED 62 % [facility] FVC POST 3.02 L [facility] FVC %POST PRED 74 % [facility] FEV1 PRE 1.25 L [facility] FEV1 %PRE PRED 41 % [facility] FEV1 POST 1.15 L [facility] FEV1 %POST PRED 38 % [facility] FEV1/FVC PRE 49.2 % [facility] FEV1/FVC POST 38.0 % [facility] FRC PL PRE 3.92 L [facility] FRC PL %PRE PRED 100 % [facility] RV PRE 2.28 L [facility] RV %PRE PRED 86 % [facility] TLC PRE 4.95 L [facility] TLC %PRE PRED 68 % [facility] DLCO PRE 6.6 ml/min/mmH g [facility] DLCO %PRE PRED 25 % [facility] FIO2 % 21.00 % [facility] PaO2 74.0 mmHg [facility] PaCO2 47.0 mmHg [facility] pH 7.40 [facility] A-aDO2 POC 17.0 mmHg [facility] METHGB % 0.9 % [facility] COHb POC 1.2 % [facility] HCO3 29.1 mEq/L [facility] Anatomical Region Laterality Modality PFT 09/03/2024 1:29 PM CDT Narrative 09/04/2024 2:16 PM CDT Table formatting from the original result was not included. [facility] Division of Pulmonary & Critical Care Medicine [address] [place] [address]; [place] [facility]; [place] [address]; [phone] Pulmonary Function Laboratory Pulmonary Stress Test Simple/Oxygen [...] with the written final report. PFT performed at:->[facility] Adult PFT Lab- [facility] Procedure:->Oxygen Assessment Titration Procedure:->Spirometry Procedure:->Spirometry with Bronchodilator [...] and %HbO2 is age dependent. However, the [facility] Pulmonary Function Laboratory defines hypoxemia as a PaO2 <56 mm Hg or a %HbO2 <89%. Starting on June of 2024 the [facility] Pulmonary Function Laboratory utilizes race neutral GLI [...] from Last [address] [address] [employer] MED[employer]ARE [facility] MEDICARE Address: [facility] [id number] [place] [phone] [facility] MEDICARE [facility] MEDICARE Advance Directives For more information, please contact: [phone] * Full Code (Latest Code Status on File) Date Activated Date Inactivated Comments 10/24/2017 8:34 PM 2017 4:37 PM Care Teams Mechanic And Welder Relationship Specialty Start Date End Date Cleo Funk DO [address] [place] [address] [place] [address] PCP - General Family Medicine 03/27/24
[2024-11-05] MEDS: methylPREDNISolone SOD SUCC 125 MG VIAL IV PUSH (22:25)
[2024-11-05 23:28] LABS: NT Pro B Type Natriuretic Pept 3700 pg/mL (19.9-100); Troponin I 0.024 ng/mL (0.000-0.034)
[2024-11-06] VITALS (24 sets, daily range): BP systolic 120–136; BP diastolic 63–92; PULSE 66–113; RESP 16–22; TEMP 36.2–36.6; O2SAT 93–99; BMI 33.0; BMI 33.1
[2024-11-06] MEDS: BUMETANIDE 0.5 MG TABLET PO (00:04)
--- NOTE | 2024-11-06 00:30 | P.HP_ITS ---
H&P: HPI History of Present Illness Date/Time: 11/06/24 00:30 Chief Complaint: Shortness of breath. Narrative: This is a 73-year-old male with multiple medical problems including chronic hypoxic respiratory failure on home oxygen, heart failure with preserved ejection fraction, coronary artery disease, hypertension, atrial fibrillation on chronic anticoagulation, obstructive sleep apnea on BiPAP, ulcerative colitis, cirrhosis, chronic kidney disease, chronic anemia, benign prostatic hyperplasia, diet-controlled diabetes, MRSA bacteremia, and other comorbidities who presented to the emergency department via private vehicle with complaints of shortness of breath. He began to feel unwell yesterday afternoon while at physical therapy with symptoms to include wheezing, shortness of breath, productive cough which he is unable to describe, and generalized malaise. He has chronic lower extremity edema which is unchanged but he has noticed that the left leg seems to be increasingly red from baseline. He denies fever, sinus congestion, sore throat, chest pain, pleuritic pain, orthopnea, vomiting, diarrhea, and dysuria. His and son had similar symptoms last week and his son was treated for pneumonia. In the ED: He was afebrile on arrival with stable vital signs. Labs were significant for WBC count of 8.2, hemoglobin 12.7, BUN 40, creatinine 1.85, glucose 124, proBNP 3700. He tested negative for influenza, RSV, and COVID. Nasal MRSA screen was positive. Chest x-ray showed pulmonary opacities which may represent edema, respiratory bronchiolitis, or atypical infection. Small left pleural effusion versus chronic pleural blunting noted. He was given a continuous nebulizer treatment and methylprednisolone with some improvement. He was also started on azithromycin ceftriaxone for suspected pneumonia and he is being admitted in this setting for further treatment. Review of Systems Review of Systems: 12 systems were reviewed and are negativ e except for as per HPI. [facility] Past Medical History Medical History (Updated 11/06/24 @ 04:14 by Jannet Myles PA-C) Chronic hypoxic respiratory failure, on home oxygen therapy Chronic kidney disease, stage 3 Chronic anemia Liver cirrhosis secondary to nonalcoholic steatohepatitis (RAYGOZA) Methicillin resistant Staphylococcus aureus infection The patient had a spinal abscess L1-L2 complicated was septicemia and then had 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 On long-term doxycycline. Chronic venous stasis dermatitis of both lower extremities Duodenal ulcer Iron (Fe) deficiency anemia Chronic anticoagulation Deep venous thrombosis Cerebrovascular accident Gastroesophageal reflux disease Chronic obstructive pulmonary disease Benign prostatic hyperplasia Obstructive sleep apnea treated with BiPAP with bleed in oxygen of 2 L Paroxysmal atrial fibrillation Obesity (BMI 30-39.9) Eczema Chronic diastolic heart failure Echocardiogram 10/2023 demonstrated EF of 60-65% grade 1 diastolic dysfunction, atrial fibrillation, by atrial enlargement difficult study Pneumothorax on left Surgical History Surgical History History of cataract extraction with lens replacement History of bilateral hip replacements History of colonoscopy with polypectomy History of tracheostomy Status post excision of lipoma Neck. History of back surgery History of revision of total replacement of hip joint Family History Family History Mother Family history of cardiovascular disease Family history of coronary artery disease Father Family history of liver disease Sibling Hypertension Cerebrovascular accident Chronic obstructive pulmonary disease Social History Social History Social History: Surrogate medical decision maker: Trinity Keys (Cathy), spouse. Code status: Full code. Smoking packs per day: 1 Smoking cigarettes per day: 20.0 Years smoked: 7 Smoking pack-years: 7.00 Smoking status: Former smoker Tobacco type: cigarettes Smokeless tobacco user: chewing tobacco Smoking end date: 06/06/81 Additional smoking assessment comments: He quit smoking when he was told he had COPD. Alcohol intake: never Substance use: never Substance use type: does not use Do You Feel Safe in your Home?: Yes Lack of Transportation: No Lack of Food: Never True Current Housing: I Have Housing Concerned About Future Housing: No Difficulty Paying Gas/Electric Bills: No Difficulty Paying for Meds: No Currently Unemployed: No Education: Bachelor's Degree Difficulty w/ Childcare or Family Care: No Living arrangements: with family Additional living arrangements comments: Lives with spouse in [place]. They have been since 1973. They have a daughter and a son. Occupation/Education: retired Additional occupation/education comments: Retired from [employer]. [place] [employer] . Spiritual care concerns: No Agree to blood products: Yes Meds Home Medications and Allergies Home Medications ?Medication ?Instructions ?Recorded ?Confirmed ?Type ferrous sulfate 324 mg (65 mg 324 mg PO DAILY 04/05/19 11/06/24 History iron) tablet,delayed release tamsulosin 0.4 mg capsule (Flomax) 0.4 mg PO HS 04/05/19 11/06/24 History aspirin 81 mg tablet,delayed 81 mg PO HS 05/21/19 11/06/24 History release cetirizine 10 mg tablet 10 mg PO Q12H 08/04/19 11/06/24 History acetaminophen 325 mg capsule 650 mg PO Q4H PRN Pain 03/17/20 11/06/24 History inhalational spacing device #10 ea 11/17/20 11/06/24 Rx (Aerochamber MV spacer) magnesium oxide 400 mg PO BID 03/04/21 11/06/24 History pyridoxine (vitamin B6) 100 mg 100 mg PO DAILY 03/04/21 11/06/24 History tablet cholecalciferol (vitamin D3) 25 25 mcg PO HS 03/03/23 11/06/24 History mcg (1,000 unit) capsule folic acid 400 mcg tablet 0.4 mg PO DAILY 08/23/23 11/06/24 History nebulizer accessories #3 ea 08/23/23 11/06/24 Rx omeprazole 40 mg capsule,delayed 40 mg PO DAILY 12/27/23 11/06/24 History release fluticasone propionate 50 2 spray intranasal DAILY 01/19/24 11/06/24 History mcg/actuation nasal spray,suspension (Allergy Relief (fluticasone)) gabapentin 300 mg capsule 300 mg PO BID 01/19/24 11/06/24 History roflumilast 500 mcg tablet 500 mcg PO DAILY 90 days #90 tabs 04/09/24 11/06/24 Rx (Daliresp) benzonatate 200 mg capsule 200 mg PO TID PRN cough 05/14/24 11/06/24 History diclofenac sodium 3 % topical gel 1 applic topical ONCE PRN pain 05/20/24 11/06/24 History hydrocortisone 1 % topical cream 1 applic topical DAILY PRN itching 05/20/24 11/06/24 History (Anti-Itch (hydrocortisone)) lanolin alcohols-mineral 1 applic topical DAILY 05/20/24 11/06/24 History oil-w.petrolatum-ceresin topical cream (Eucerin topical cream) lidocaine 4 % topical patch 1 patch topical DAILY PRN pain 05/20/24 11/06/24 History (Lidocaine Pain Relief) triamcinolone acetonide 0.1 % 1 applic topical DAILY 05/20/24 11/06/24 History topical cream apixaban 5 mg tablet (Eliquis) 5 mg PO BID #180 tabs 06/13/24 11/06/24 Rx baclofen 10 mg tablet See Rx Instructions .Route 06/13/24 11/06/24 Rx .COMPLEX #90 tabs doxycycline hyclate 100 mg capsule 100 mg PO DAILY #90 caps 06/13/24 11/06/24 Rx metoprolol succinate 50 mg 50 mg PO DAILY #180 tabs 06/13/24 11/06/24 Rx tablet,extended release 24 hr spironolactone 25 mg tablet 12.5 mg (1/2 x 25 mg) PO DAILY #45 06/13/24 11/06/24 Rx tabs bumetanide 0.5 mg tablet See Rx Instructions .Route 09/10/24 11/06/24 Rx .COMPLEX #180 tabs budesonide 0.5 mg/2 mL suspension 0.5 mg inhalation BID 10/08/24 11/06/24 History for nebulization ipratropium 0.5 mg-albuterol 3 mg 3 ml inhalation Q6H 10/08/24 11/06/24 History (2.5 mg base)/3 mL nebulization soln Lactobacillus acidophilus 1 tablet PO TID 11/06/24 11/06/24 History fluconazole 200 mg tablet 200 mg PO WEEKLY 11/06/24 11/06/24 History (Diflucan) Allergies Allergy/AdvReac Type Severity Reaction Status Date / Time clindamycin Allergy Intermediate Rash Verified 11/06/24 02:04 levofloxacin Allergy Intermediate Swelling Verified 11/06/24 02:04 of the Eye Penicillins Allergy Intermediate Hives Verified 11/06/24 02:04 scopolamine Allergy Mild Hallucinati Verified 11/06/24 02:04 ng tobramycin Allergy Mild EYE REDNESS Verified 11/06/24 02:04 pepper (genus Capsicum) AdvReac Intermediate Nausea and Verified 11/06/24 02:04 Vomiting dust mites Allergy Swelling Uncoded 11/06/24 02:04 cats AdvReac Mild REDNESS OF Uncoded 11/06/24 02:04 THE EYES/WATERING Vital Signs Vital Signs - 24 hr 11/05/24 18:37 11/05/24 21:38 11/05/24 21:40 Temperature 97.7 F Pulse Rate 86 97 Respiratory Rate 19 29 H 25 H Blood Pressure 148/96 H 132/73 Pulse Oximetry 100 99 Oxygen Delivery Nasal Cannula Oxygen Flow Rate 4 11/05/24 22:00 11/05/24 22:05 11/05/24 22:20 Temperature Pulse Rate 93 99 Respiratory Rate 25 H Blood Pressure Pulse Oximetry 96 Oxygen Delivery Nasal Cannula Oxygen Flow Rate 3 11/05/24 23:20 Temperature Pulse Rate 103 H Respiratory Rate 27 H Blood Pressure Pulse Oximetry Oxygen Delivery Oxygen Flow Rate Exam Narrative: General: Moderately ill-appearing male sitting up in bed in no acute distress. Weight: 107.7 kg. BMI: 33.1. HEENT: PERRL, EOMI. Sclera anicteric. Conjunctiva mildly injected. Tacky mucous membranes. Neck: Supple. L no JVD or lymphadenopathy. Respiratory: He is mildly tachypneic though appears in no respiratory distress. Scattered rhonchi in the upper lungs which improved with cough. Lung sounds are otherwise a bit coarse and diminished with expiratory wheezing. Cardiovascular: Irregularly regular rate rhythm. Soft murmur at the upper sternal border. Gastrointestinal: Abdomen is soft, obese, nontender, and nondistended with positive bowel sounds. Genitourinary: Patient and report candidal intertrigo which is being t reated actively. This was not examined. Skin: Warm and dry. Chronic skin changes of the lower legs bilaterally. The left lower leg is erythematous and warm, concerning for cellulitis. Extremities: No cyanosis or clubbing. Bilateral lower extremity edema. Neurological: Alert and oriented. Cranial nerves 2-12 are grossly intact. No gross focal deficits to casual conversation. Psychiatric: Pleasant and cooperative with normal mood and affect. H&P: Results Labs Labs: Short CBC 11/05/24 Range/Units 20:14 WBC 8.2 (4.5-10.0) K/mm3 Hgb 12.7 L (14.0-18.0) g/dL Hct 42.1 (42.0-52.0) % Plt Count 237 D (150-375) k/mm3 [facility] 11/05/24 20:14 Sodium 138 Potassium 4.7 Chloride 99 Carbon Dioxide 30 BUN 48 H Creatinine 1.85 H Glucose 124 H Calcium 9.7 Cardiac Enzymes 11/05/24 Range/Units 22:03 Troponin I 0.024 (0.000-0.034) ng/mL Liver Function 11/05/24 Range/Units 20:14 Total Bilirubin 0.7 (0.2-1.3) mg/dL AST 40 (17-59) U/L ALT 37 (6-50) U/L Alkaline Phosphatase 201 H (38-126) U/L Albumin 3.9 (3.5-5.1) g/dL Imaging Chest X-Ray 11/05/24 20:15 IMPRESSION: Pulmonary opacities may represent edema, respiratory bronchiolitis, or atypical infection. Small left pleural effusion versus chronic pleural blunting. Assessment and Plan Assessment and plan (1) Acute exacerbation of chronic obstructive pulmonary disease: Code(s): J44.1 - Chronic obstructive pulmonary disease with (acute) exacerbation Status: Acute (2) Left leg cellulitis: Code(s): L03.116 - Cellulitis of left lower limb Status: Acute (3) Pneumonia: Qualifiers: Laterality: bilateral Lung location: unspecified part of lung Pneumonia type: due to unspecified organism Qualified Code(s): J18.9 - Pneumonia, unspecified organism Code(s): J18.9 - Pneumonia, unspecified organism Status: Acute (4) MRSA nasal colonization: Code(s): Z22.322 - Carrier or suspected carrier of Methicillin resistant Staphylococcus aureus Status: Acute (5) Chronic hypoxic respiratory failure, on home oxygen therapy: Code(s): J96.11 - Chronic respiratory failure with hypoxia; Z99.81 - Dependence on supplemental oxygen Status: Acute (6) Obstructive sleep apnea treated with BiPAP: Code(s): G47.33 - Obstructive sleep apnea (adult) (pediatric) Status: Chronic (7) Chronic diastolic heart failure: Code(s): I50.32 - Chronic diastolic (congestive) heart failure Status: Chronic (8) Atrial fibrillation: Qualifiers: Atrial fibrillation type: unspecified Qualified Code(s): I48.91 - Unspecified atrial fibrillation Code(s): I48.91 - Unspecified atrial fibrillation Status: Chronic (9) Chronic anticoagulation: Code(s): Z79.01 - long term care phlebotomist (current) use of anticoagulants Status: Chronic (10) Chronic kidney disease, stage 3: Code(s): N18.30 - Chronic kidney disease, stage 3 unspecified Status: Acute Plan The patient presented to the emergency department with complaints of shortness of breath, productive cough, and generalized malaise since yesterday as detailed in HPI. Labs, imaging, EKG, and all reports were personally reviewed. Clinically he has a mild COPD exacerbation which is likely precipitated by underlying respiratory infection. Chest x-ray is concerning for developing pneumonia and he has been started on azithromycin and ceftriaxone. Add vancomycin as his nasal MRSA screen was positive. Sputum culture ordered. Continue scheduled bronchodilators. Discontinue steroids as his wheezing has improved significantly after the hour long treatment. Mucinex and Cornet ordered to help mobilize secretions. He was given 0.5 mg bumetanide as he does have quite a bit of lower extremity edema though he states this is baseline. Monitor volume status closely with I/O and daily weights. Left leg appears to have underlying cellulitis which should be covered by the ceftriaxone. He is at his baseline oxygen requirement. BiPAP will be provided for the patient to use while hospitalized. Atrial fibrillation is rate controlled. Continue apixaban for stroke prophylaxis. Renal function is stable on review of previous labs. His home medications will be reviewed and resumed as appropriate. Findings and treatment plan were discussed with the patient. Questions were solicited and answered to satisfaction. The patient's medical management will be taken over by the hospitalist team in a.m. Quality VTE Prophylaxis VTE prophylaxis: pharmacologic ordered (on apixaban) The patient has been admitted under observation status. Hospitalist MIPS Advance Care Plan I have confirmed that the patient's Advanced Care Plan is present, code status is documented, or surrogate decision maker is listed in patient medical record.: Yes Medication Reconciliation I have utilized all available resources to obtain, update and review the patients current medications (includes all prescriptions, OTC, herbals, cannabis, and nutritional supplements).: Yes
[2024-11-06 00:57] LABS: Influenza A QL RT-PCR Negative (Negative); Influenza B QL RT-PCR Negative (Negative); RSV RNA, RT-PCR Negative (Negative); SARS-CoV-2 RNA PCR Negative (Negative)
--- NOTE | 2024-11-06 01:17 | ADMGEN ---
This patient, Mason Keys, was admitted to Medical Room 349-01. Patient/family oriented to hospital policies and general routines including ID bracelet, bed and alarms, visiting hours, pain management, procedures, bathroom and other care routines, personal items, smoking policy, room service/diet, and visiting hours. Information on how to activate the Rapid Response Team has been discussed. Patient/Family are encouraged to report perceived risks to care and to ask questions if they do not understand what they are told or what they should do.
[2024-11-06] MEDS: LEVALBUTEROL NEB 1.25 MG/3 ML 0.63 MG INHALATION (01:47)
[2024-11-06] MEDS: IPRATROPIUM BR 0.02% INH SOLN 0.5 MG/2.5 ML VIAL INHALATION (01:47)
[2024-11-06 02:00] LABS: Troponin I 0.022 ng/mL (0.000-0.034)
[2024-11-06 04:00] LABS: MRSA (PCR) DETECTED (NOT DETECTE)
[2024-11-06 04:59] LABS: Hematocrit 39.9 % (42.0-52.0); Hemoglobin 12.1 g/dL (14.0-18.0); Mean Corpuscular HGB Conc 30.3 g/dl (32-36); Mean Corpuscular Hemoglobin 30.6 pg (26-34); Mean Platelet Volume 12.3 fl (7.4-10.4); Platelet Count Result 245 k/mm3 (150-375); Red Blood Count 3.95 M/mm3 (4.6-6.20); Red Cell Distribution Width 14.5 % (11.5-14.5); White Blood Count 7.8 K/mm3 (4.5-10.0)
[2024-11-06 05:05] LABS: Alanine Aminotransferase 33 U/L (6-50); Albumin Level 3.6 g/dL (3.5-5.1); Alkaline Phosphatase 181 U/L (38-126); Anion Gap 7 mmol/L (4-12); Aspartate Amino Transferase 38 U/L (17-59); Bilirubin,Total 0.6 mg/dL (0.2-1.3); Blood Urea Nitrogen 47 mg/dL (9-20); Calcium 9.3 mg/dL (8.4-10.2); Carbon Dioxide 29 mmol/L (22-30); Chloride 101 mmol/L (98-107); Estimated CRCL calculation 41 ml/min; Estimated Glomerular Filt Rate 38; Glucose 193 mg/dL (65-110); Potassium 4.3 mmol/L (3.4-5.0); Sodium 137 mmol/L (137-145)
[2024-11-06] MEDS: VANCOMYCIN 1,250 MG/NS 250 ML 1,250 MG/250 ML BAG 166.67 MG IVPB ×2 (05:05→07:38)
[2024-11-06 05:22] LABS: Troponin I 0.034 ng/mL (0.000-0.034)
[2024-11-06 05:56] LABS: Anisocytosis 1+; Band Neutrophils Percent 10 % (0-6); Lymphocytes Absolute Manual 0.31 K/mm3 (1.1-4.5); Monocytes Absolute Manual 0.15 K/mm3 (0.1-0.90); Monocytes Percent Manual 2 % (3-9); Neutrophils Absolute Manual 7.33 K/mm3 (1.3-6.7); Neutrophils Percent Manual 84 % (46-73); Platelet Estimate Adequate (Adequate); Schistocytes None Seen; Total Cells Counted 100
[2024-11-06] MEDS: IPRATROPIUM 0.5 MG/ALBUTEROL SULFATE 2.5 MG AMPUL.NEB 3 ML INHALATION ×3 (07:46→20:29)
[2024-11-06] MEDS: BUDESONIDE RESPULE NEB 0.5 MG/2 ML AMP INHALATION ×2 (07:46→20:29)
[2024-11-06 08:31] LABS: Glucose Point of Care 165 mg/dl (65-105)
--- NOTE | 2024-11-06 08:37 | P.PNIM_ITS ---
Progress Note: A&P Assessment and Plan (1) Acute exacerbation of chronic obstructive pulmonary disease: Code(s): J44.1 - Chronic obstructive pulmonary disease with (acute) exacerbation Status: Acute Assessment and Plan: * Monitor vital signs, I&Os, neuro status and patient is a fall risk * Monitor serum electrolytes, cultures and CBC * Monitor Oxygen saturation, Oxygen via NC; wean oxygen as tolerated, keep SpO2 greater than 88% * Send sputum cultures if possible * Azithromycin 500mg * Continue Duonebz q6H (2) Left leg cellulitis: Code(s): L03.116 - Cellulitis of left lower limb Status: Acute Assessment and Plan: * Monitor vital signs, I&Os, neuro status and patient is a fall risk * Monitor serum electrolytes, CBC, cultures, WBC and temp curve * Gentle IV fluids resuscitation * Maintain Ceftriaxone (3) Pneumonia: Qualifiers: Laterality: bilateral Lung location: unspecified part of lung Pneumonia type: due to unspecified organism Qualified Code(s): J18.9 - Pneumonia, unspecified organism Code(s): J18.9 - Pneumonia, unspecified organism Status: Acute Assessment and Plan: * CXR: Pulmonary opacities may represent edema, respiratory bronchiolitis, or atypical infection. Small left pleural effusion versus chronic pleural blunting. * started on CAP tx: azithromycin & ceftriaxone * Viral PCR: negative for Flu/COVID/RSV * Ordered legionella, mycoplasma and pneumococcal * Monitor vital signs, I&Os, neuro status and patient is a fall risk * Follow WBC, serum electrolytes, temperature curves and cultures * Send sputum cultures * Oxygen via NC; wean as tolerated. Keep SpO2 greater than 88% * Gentle IV fluid resuscitation (4) MRSA nasal colonization: Code(s): Z22.322 - Carrier or suspected carrier of Methicillin resistant Staphylococcus aureus Status: Acute Assessment and Plan: * Nasal MRSA + * Initiate PO Vancomycin * Monitor BCs (5) Chronic hypoxic respiratory failure, on home oxygen therapy: Code(s): J96.11 - Chronic respiratory failure with hypoxia; Z99.81 - Dependence on supplemental oxygen Status: Acute Assessment and Plan: * Symptoms: SOB * SpO2: 98% * Oxygen supplementation: 3L NC * EKG: Afib w/ ventricular premature complex * Chest XR: Pulmonary opacities may represent edema, respiratory bronchiolitis, or atypical infection. Small left pleural effusion versus chronic pleural blunting. (6) Obstructive sleep apnea treated with BiPAP: Code(s): G47.33 - Obstructive sleep apnea (adult) (pediatric) Status: Chronic Assessment and Plan: * BiPAP will be provided for the patient to use while hospitalized (7) Chronic diastolic heart failure: Code(s): I50.32 - Chronic diastolic (congestive) heart failure Status: Chronic Assessment and Plan: * Echo 11/04/23: * LVH with overall good systolic function, hypokinesia is noted of the mid to apical septum and apex. * Sclerotic aortic valve which exhibits good leaflet separation. * Significant biatrial dilation. * Atrial fibrillation * Given 0.5mg Bumex given LE edema (although pt states this is baseline) * Monitor I/O and daily weight (8) Atrial fibrillation: Qualifiers: Atrial fibrillation type: unspecified Qualified Code(s): I48.91 - Unspecified atrial fibrillation Code(s): I48.91 - Unspecified atrial fibrillation Status: Chronic Assessment and Plan: * Rate controlled * Continue Apixiban (dvt prophylaxis) (9) Chronic anticoagulation: Code(s): Z79.01 - shelter (current) use of anticoagulants Status: Chronic Assessment and Plan: * Continue Apixiban (10) Chronic kidney disease, stage 3: Code(s): N18.30 - Chronic kidney disease, stage 3 unspecified Status: Acute Assessment and Plan: * Renal function is stable on review of previous labs. * Cr 1.76, GFR 38, BUN 47 Subjective Date/time seen: 11/06/24 08:37 Interval history: 73-year-old male with pmhx of chronic hypoxic respiratory failure on home oxygen, HFpEF, CAD, HTN, afib on chronic anticoagulation, [place] on BiPAP, ulcerative colitis, cirrhosis, CKD, chronic anemia, BPH, diet-controlled diabetes, MRSA bacteremia, and other comorbidities who presents with SOB. 11/06/2024 Patient sitting comfortably in bed at time examination. Denies any chest pain, shortness Deann breath, nausea/vomiting, or abdominal pain at this time. Continue current treatment for pneumonia, cellulitis. At his baseline O2 requirement. AFib stable. MRSA positive, continue treatment with vancomycin Review of Systems Review of Systems: 12 systems were reviewed and are negativ e except for as per HPI. Exam Narrative: General: Moderately ill-appearing male sitting up in bed in no acute distress. Weight: 107.7 kg. BMI: 33.1. HEENT: PERRL, EOMI. Sclera anicteric. Conjunctiva mildly injected. Tacky mucous membranes. Neck: Supple. L no JVD or lymphadenopathy. Respiratory: He is mildly tachypneic though appears in no respiratory distress. Scattered rhonchi in the upper lungs which improved with cough. Lung sounds are otherwise a bit coarse and diminished with expiratory wheezing. Cardiovascular: Irregularly regular rate rhythm. Soft murmur at the upper sternal border. Gastrointestinal: Abdomen is soft, obese, nontender, and nondistended with positive bowel sounds. Genitourinary: Patient and report candidal intertrigo which is being treated actively. This was not examined. Skin: Warm and dry. Chronic skin changes of the lower legs bilaterally. The left lower leg is erythematous and warm, concerning for cellulitis. Extremities: No cyanosis or clubbing. Bilateral lower extremity edema. Neurological: Alert and oriented. Cranial nerves 2-12 are grossly intact. No gross focal deficits to casual conversation. Psychiatric: Pleasant and cooperative with normal mood and affect. Objective Data Vital Signs Vital Signs: Vital Signs - 24 hr 11/05/24 18:37 11/05/24 21:38 11/05/24 21:40 Temperature 97.7 F Pulse Rate 86 97 Respiratory Rate 19 29 H 25 H Blood Pressure 148/96 H 132/73 Pulse Oximetry 100 99 Oxygen Delivery Nasal Cannula Oxygen Flow Rate 4 11/05/24 22:00 11/05/24 22:05 11/05/24 22:15 Temperature Pulse Rate 93 97 Respiratory Rate 22 H Blood Pressure Pulse Oximetry 96 Oxygen Delivery Nasal Cannula Oxygen Flow Rate 3 11/05/24 22:20 11/05/24 22:48 11/05/24 23:20 Temperature Pulse Rate 99 100 103 H Respiratory Rate 25 H 22 H 27 H Blood Pressure Pulse Oximetry Oxygen Delivery Oxygen Flow Rate 11/05/24 23:27 11/05/24 23:30 11/05/24 23:31 Temperature Pulse Rate 108 H 108 H 97 Respiratory Rate 20 22 H 23 H Blood Pressure 121/74 Pulse Oximetry 100 98 99 Oxygen Delivery Oxygen Flow Rate 11/05/24 23:46 11/06/24 00:01 11/06/24 00:41 Temperature Pulse Rate 92 95 101 H Respiratory Rate 20 22 H 20 Blood Pressure 133/81 Pulse Oximetry 93 Oxygen Delivery Oxygen Flow Rate 11/06/24 01:09 11/06/24 01:10 11/06/24 01:47 Temperature 97.4 F L Pulse Rate 66 107 H 77 Respiratory Rate 20 18 Blood Pressure 136/84 Pulse Oximetry 96 Oxygen Delivery Oxygen Flow Rate 11/06/24 02:04 11/06/24 02:06 11/06/24 03:11 Temperature Pulse Rate 77 Respiratory Rate 18 Blood Pressure Pulse Oximetry 96 98 Oxygen Delivery Nasal Cannula Nasal Cannula Oxygen Flow Rate 2 2 11/06/24 03:16 11/06/24 04:06 11/06/24 06:00 Temperature 97.8 F Pulse Rate 113 H 84 Respiratory Rate 18 Blood Pressure 123/92 H Pulse Oximetry 98 Oxygen Delivery BiPAP Oxygen Flow Rate 11/06/24 07:49 11/06/24 07:49 11/06/24 08:07 Temperature Pulse Rate 82 89 Respiratory Rate 20 20 Blood Pressure Pulse Oximetry 98 Oxygen Delivery Nasal Cannula Oxygen Flow Rate 3 Intake/Output Intake/Output: Intake & Output 11/03/24 11/04/24 11/05/24 11/06/24 23:59 23:59 23:59 23:59 Intake Total 300 Output Total 600 Balance 300 -600 Meds/Results Medications: Active Medications Generic Name Dose Route Start Last Admin Trade Name Troyq PRN Reason Stop Dose Admin Acetaminophen 650 mg 11/05/24 23:56 Acetaminophen 325 Mg Tablet PO Q4H PRN Mild Pain (1-3) or Fever Albuterol/Ipratropium 3 ml 11/06/24 08:00 11/06/24 07:46 Ipratropium 0.5 Mg/Albuterol Sulfate 2.5 Mg Ampul.Neb 3 Ml INHALATION 3 ml Q6HRT [facility] Administration Apixaban 5 mg 11/06/24 09:00 Apixaban 5 Mg Tablet PO Q12HR [facility] Aspirin 81 mg 11/06/24 21:00 Aspirin 81 Mg Enteric Tablet PO HS [facility] Baclofen 10 mg 11/06/24 21:00 Baclofen 10 Mg Tablet BY MOUTH QHS [facility] Budesonide 0.5 mg 11/06/24 08:00 11/06/24 07:46 Budesonide Respule Neb 0.5 Mg/2 Ml Amp INHALATION 0.5 mg Q12HRT [facility] Administration Bumetanide 0.5 mg 11/06/24 09:00 Bumetanide 0.5 Mg Tablet BY MOUTH BID [facility] Dextrose 12.5 gm 11/06/24 00:39 Dextrose 50% 25 Gm/50 Ml Syringe IV PUSH PRN PRN Hypoglycemia Protocol Diclofenac Sodium 1 applic 11/06/24 05:01 Diclofenac Sodium 1% 100 Gm Gel (*Bkc) TOPICAL QID PRN Pain Ferrous Sulfate 325 mg 11/06/24 09:00 Ferrous Sulfate [address] PO DAILY [facility] Fluconazole 200 mg 11/10/24 09:00 Fluconazole 100 Mg Tablet PO WEEKLY [facility] Fluticasone Propionate 2 spray 11/06/24 09:00 Fluticasone Propionate 0.05% Na Spr 16 Gm Btl (*Bkc) NASAL DAILY [facility] Folic Acid 0.4 mg 11/06/24 09:00 Folic Acid 0.4 Mg Tablet PO DAILY [facility] Gabapentin 300 mg 11/06/24 09:00 Gabapentin 300 Mg Capsule PO BID [facility] Glucagon 1 mg 11/06/24 00:39 Glucagon For Inj 1 Mg Vial IM PRN PRN Hypoglycemia Protocol Glucose 15 gm 11/06/24 00:39 Glucose Oral Gel 15 Gm Of Glucse In 37.5 Gm Tube PO PRN PRN Hypoglycemia Protocol Guaifenesin 1,200 mg 11/06/24 09:00 Guaifenesin 12 Hr 600 Mg Tabcr PO Q12HR [facility] Hydrocortisone 1 applic 11/06/24 04:20 Hydrocortisone 1% 30 Gm Cream TOPICAL DAILY PRN itching Ceftriaxone Sodium 1 gm in 50 mls @ 100 mls/hr 11/06/24 21:00 Rocephin 1 Gm/Ns 50 Ml IVPB Q24H [facility] Azithromycin 500 mg in 250 mls @ 250 mls/hr 11/06/24 22:00 Zithromax IVPB Q24H [facility] Dextrose 1,000 mls @ 100 mls/hr 11/06/24 00:39 Dextrose 5% 1,000 Ml IVPB PRN PRN Hypoglycemia Protocol Vancomycin HCl 1,500 mg in 500 mls @ 250 mls/hr 11/07/24 05:00 Vancomycin 1,500 Mg/Ns 500 Ml IVPB Q24H [facility] Insulin Aspart 3 - 6 units 11/06/24 08:00 Insulin Aspart (*Bkc) 100 Units/Ml SUB-Q TIDWM [facility] Protocol Insulin Aspart 1 - 3 units 11/06/24 21:00 Insulin Aspart (*Bkc) 100 Units/Ml SUB-Q HS [facility] Protocol Lactobacillus Acidophilus 1 tablet 11/06/24 09:00 Acidophilus/Bulgaricus Chewable Tablet PO TID [facility] Lidocaine 1 patch 11/06/24 04:36 Lidocaine 5% Patch TRANSDERM DAILY PRN pain Loratadine 10 mg 11/06/24 09:00 Loratadine 10 Mg Tablet PO QAM [facility] Magnesium Oxide 400 mg 11/06/24 09:00 Magnesium Oxide 400 Mg Tablet PO BID [facility] Metoprolol Succinate 50 mg 11/06/24 09:00 Metoprolol Succinate Ext Rel 50 Mg Tabcr PO DAILY [facility] Multi-Ingred Cream/Lotion/Oil/Oint 1 applic 11/06/24 09:00 Eucerin Cream 120 Gm Jar TOPICAL DAILY [facility] Mupirocin 1 applic 11/06/24 09:00 Mupirocin 2% Oint 22 Gm Tube EACH NARE 11/10/24 21:01 Q12HR [facility] Pantoprazole Sodium 40 mg 11/06/24 09:00 Pantoprazole 40 Mg Tablet PO Q12HR [facility] Pyridoxine HCl 100 mg 11/06/24 09:00 Pyridoxine Hcl 50 Mg Tablet PO QAM [facility] Roflumilast 500 mcg 11/06/24 09:00 Roflumilast 500 Mcg Tablet PO DAILY [facility] Spironolactone 12.5 mg 11/06/24 09:00 Spironolactone 12.5 Mg Tablet PO DAILY [facility] Tamsulosin HCl 0.4 mg 11/06/24 21:00 Tamsulosin Hcl 0.4 Mg Capsule PO HS [facility] Triamcinolone Acetonide 1 applic 11/06/24 09:00 Triamcinolone Acet 0.1% Cream 15 Gm Tube TOPICAL DAILY [facility] Vitamin D 25 mcg 11/06/24 21:00 Cholecalciferol (Vitamin D3) 25 Mcg (1,000 Units) Tablet PO [facility] Radiology Results: ITS Impressions Chest X-Ray 11/05/24 20:15 IMPRESSION: Pulmonary opacities may represent edema, respiratory bronchiolitis, or atypical infection. Small left pleural effusion versus chronic pleural blunting. Labs Labs: Laboratory Results - last 24 hr 11/05/24 11/05/24 11/05/24 20:14 21:59 22:03 WBC 8.2 RBC 4.18 L Hgb 12.7 L Hct 42.1 MCV 100.7 H MCH 30.4 MCHC 30.2 L RDW 14.4 Plt Count 237 D MPV 12.0 H Immature Gran % (Auto) 3.7 H Neut % (Auto) 64.1 Lymph % (Auto) 12.1 L [place] % (Auto) 16.0 H Eos % (Auto) 2.9 Baso % (Auto) 1.2 Lymph # (Auto) 0.99 [place] # (Auto) 1.3 H Eos # (Auto) 0.2 Baso # (Auto) 0.1 Abs Immat Gran (auto) 0.30 H Absolute Neuts (auto) 5.2 Absolute Nucleated RBC 0.000 Total Counted Neutrophils % (Manual) Band Neutrophils % Lymphocytes % (Manual) Monocytes % (Manual) Nucleated RBC % 0.0 Abs Neuts (Manual) Abs Lymphs (Manual) Abs Monocytes (Manual) Platelet Estimate Anisocytosis Schistocytes Puncture Site Left radial ABG pH 7.382 ABG pCO2 51.3 H ABG pO2 83.8 ABG PO2/FiO2 Ratio 2.62 ABG HCO3 29.8 H ABG O2 Saturation 96.0 ABG O2 Content 17.8 ABG Base Excess 3.7 A-a Gradient 84.3 Oxyhemoglobin 95.4 Carboxyhemoglobin 0.9 Methemoglobin 0.1 Reduced Hemoglobin 3.6 Total Hemoglobin 13.2 O2 Delivery Device Nasal cannula O2 Liters/Min 3.0 FiO2 32 Sodium 138 Potassium 4.7 Chloride 99 Carbon Dioxide 30 Anion Gap 9 BUN 48 H Creatinine 1.85 H Estim Creat Clear Calc 39 Estimated GFR 36 L Glucose 124 H POC Capillary Glucose Calcium 9.7 Magnesium Total Bilirubin 0.7 AST 40 ALT 37 Alkaline Phosphatase 201 H Troponin I 0.024 NT-Pro-B Natriuret Pep 3700 H Total Protein 7.0 Albumin 3.9 Nasal MRSA (PCR) Influenza A (RT-PCR) Influenza B (RT-PCR) RSV (RT-PCR) SARS-CoV-2 RNA (RT-PCR) 11/06/24 11/06/24 11/06/24 00:12 01:31 01:41 WBC RBC Hgb Hct MCV MCH MCHC RDW Plt Count MPV Immature Gran % (Auto) Neut % (Auto) Lymph % (Auto) [place] % (Auto) Eos % (Auto) Baso % (Auto) Lymph # (Auto) [place] # (Auto) Eos # (Auto) Baso # (Auto) Abs Immat Gran (auto) Absolute Neuts (auto) Absolute Nucleated RBC Total Counted Neutrophils % (Manual) Band Neutrophils % Lymphocytes % (Manual) Monocytes % (Manual) Nucleated RBC % Abs Neuts (Manual) Abs Lymphs (Manual) Abs Monocytes (Manual) Platelet Estimate Anisocytosis Schistocytes Puncture Site ABG pH ABG pCO2 ABG pO2 ABG PO2/FiO2 Ratio ABG HCO3 ABG O2 Saturation ABG O2 Content ABG Base Excess A-a Gradient Oxyhemoglobin Carboxyhemoglobin Methemoglobin Reduced Hemoglobin Total Hemoglobin O2 Delivery Device O2 Liters/Min FiO2 Sodium Potassium Chloride Carbon Dioxide Anion Gap BUN Creatinine Estim Creat Clear Calc Estimated GFR Glucose POC Capillary Glucose Calcium Magnesium Total Bilirubin AST ALT Alkaline Phosphatase Troponin I 0.022 NT-Pro-B Natriuret Pep Total Protein Albumin Nasal MRSA (PCR) Detected A* Influenza A (RT-PCR) Negative Influenza B (RT-PCR) Negative RSV (RT-PCR) Negative SARS-CoV-2 RNA (RT-PCR) Negative 11/06/24 11/06/24 04:09 08:28 WBC 7.8 RBC 3.95 L Hgb 12.1 L Hct 39.9 L MCV 101.0 H MCH 30.6 MCHC 30.3 L RDW 14.5 Plt Count 245 MPV 12.3 H Immature Gran % (Auto) Not Reportable Neut % (Auto) Not Reportable Lymph % (Auto) Not Reportable [place] % (Auto) Not Reportable Eos % (Auto) Not Reportable Baso % (Auto) Not Reportable Lymph # (Auto) Not Reportable [place] # (Auto) Not Reportable Eos # (Auto) Not Reportable Baso # (Auto) Not Reportable Abs Immat Gran (auto) Not Reportable Absolute Neuts (auto) Not Reportable Absolute Nucleated RBC Not Reportable Total Counted 100 Neutrophils % (Manual) 84 H Band Neutrophils % 10 H Lymphocytes % (Manual) 4.0 L Monocytes % (Manual) 2 L Nucleated RBC % Not Reportable Abs Neuts (Manual) 7.33 H Abs Lymphs (Manual) 0.31 L Abs Monocytes (Manual) 0.15 Platelet Estimate Adequate Anisocytosis 1+ Schistocytes None seen Puncture Site ABG pH ABG pCO2 ABG pO2 ABG PO2/FiO2 Ratio ABG HCO3 ABG O2 Saturation ABG O2 Content ABG Base Excess A-a Gradient Oxyhemoglobin Carboxyhemoglobin Methemoglobin Reduced Hemoglobin Total Hemoglobin O2 Delivery Device O2 Liters/Min FiO2 Sodium 137 Potassium 4.3 Chloride 101 Carbon Dioxide 29 Anion Gap 7 BUN 47 H Creatinine 1.76 H Estim Creat Clear Calc 41 Estimated GFR 38 L Glucose 193 H POC Capillary Glucose 165 H Calcium 9.3 Magnesium 2.0 Total Bilirubin 0.6 AST 38 ALT 33 Alkaline Phosphatase 181 H Troponin I 0.034 D NT-Pro-B Natriuret Pep Total Protein 7.0 Albumin 3.6 Nasal MRSA (PCR) Influenza A (RT-PCR) Influenza B (RT-PCR) RSV (RT-PCR) SARS-CoV-2 RNA (RT-PCR) Quality VTE Prophylaxis VTE prophylaxis: pharmacologic ordered (on apixaban)
[2024-11-06] MEDS: PANTOPRAZOLE 40 MG TABLET PO ×2 (09:21→20:27)
[2024-11-06] MEDS: FERROUS SULFATE 325 MG TABLET DR PO (09:21)
[2024-11-06] MEDS: guaiFENesin 12 HR 600 MG TABCR 1200 MG PO ×2 (09:21→20:27)
[2024-11-06] MEDS: METOPROLOL SUCCINATE EXT REL 50 MG TABCR PO (09:21)
[2024-11-06] MEDS: GABAPENTIN 300 MG CAPSULE PO ×2 (09:21→16:54)
[2024-11-06] MEDS: FOLIC ACID 0.4 MG TABLET PO (09:22)
[2024-11-06] MEDS: SPIRONOLACTONE 12.5 MG TABLET PO (09:22)
[2024-11-06] MEDS: PYRIDOXINE HCL 50 MG TABLET 100 MG PO (09:22)
[2024-11-06] MEDS: LORATADINE 10 MG TABLET PO (09:22)
[2024-11-06] MEDS: APIXABAN 5 MG TABLET PO ×2 (09:22→20:27)
[2024-11-06] MEDS: MAGNESIUM OXIDE 400 MG TABLET PO ×2 (09:22→16:54)
[2024-11-06] MEDS: BUMETANIDE 0.5 MG TABLET BY MOUTH ×2 (09:22→16:54)
[2024-11-06] MEDS: ROFLUMILAST 500 MCG TABLET PO (09:23)
[2024-11-06] MEDS: ACIDOPHILUS/BULGARICUS CHEWABLE TABLET 1 TABLET PO ×3 (09:23→16:54)
[2024-11-06] MEDS: FLUTICASONE PROPIONATE 0.05% NA SPR 16 GM BTL (*BKC) 2 SPRAY NASAL (09:26)
[2024-11-06] MEDS: MUPIROCIN 2% OINT 22 GM TUBE 1 APPLIC EACH NARE ×2 (09:27→20:44)
[2024-11-06] MEDS: TRIAMCINOLONE ACET 0.1% CREAM 15 GM TUBE 1 APPLIC TOPICAL (09:27)
[2024-11-06] MEDS: EUCERIN CREAM 120 GM JAR 1 APPLIC TOPICAL (09:27)
[2024-11-06 10:47] LABS: Procalcitonin 0.3 ng/mL
[2024-11-06 11:48] LABS: Glucose Point of Care 253 mg/dl (65-105)
[2024-11-06] MEDS: INSULIN ASPART (*BKC) 100 UNITS/ML SUB-Q ×2 (12:35→20:30)
[2024-11-06 17:12] LABS: Glucose Point of Care 115 mg/dl (65-105)
[2024-11-06 19:52] LABS: Glucose Point of Care 208 mg/dl (65-105)
[2024-11-06] MEDS: BACLOFEN 10 MG TABLET BY MOUTH (20:27)
[2024-11-06] MEDS: ASPIRIN 81 MG ENTERIC TABLET PO (20:27)
[2024-11-06] MEDS: TAMSULOSIN HCL 0.4 MG CAPSULE PO (20:27)
[2024-11-06] MEDS: CHOLECALCIFEROL (VITAMIN D3) 25 MCG (1,000 UNITS) TABLET PO (20:27)
[2024-11-06] MEDS: AZITHROMYCIN 500 MG/NS 250 ML 500 MG/250 ML BAG 250 MG IVPB (21:30)
[2024-11-07] VITALS (19 sets, daily range): BP systolic 130–137; BP diastolic 71–78; PULSE 60–112; RESP 16–20; TEMP 35.6–36.5; O2SAT 97–100
[2024-11-07] MEDS: IPRATROPIUM 0.5 MG/ALBUTEROL SULFATE 2.5 MG AMPUL.NEB 3 ML INHALATION ×4 (01:14→19:49)
[2024-11-07] MEDS: VANCOMYCIN 1,500 MG/NS 500 ML 1,500 MG/500 ML BAG 250 MG IVPB (04:03)
[2024-11-07 06:03] LABS: Estimated CRCL calculation 49 ml/min; Estimated Glomerular Filt Rate 46
[2024-11-07] MEDS: BUDESONIDE RESPULE NEB 0.5 MG/2 ML AMP INHALATION ×2 (07:29→19:49)
--- NOTE | 2024-11-07 07:47 | P.PNIM_ITS ---
Progress Note: A&P Assessment and Plan (1) Acute exacerbation of chronic obstructive pulmonary disease: Code(s): J44.1 - Chronic obstructive pulmonary disease with (acute) exacerbation Status: Acute Assessment and Plan: * Monitor vital signs, I&Os, neuro status and patient is a fall risk * Monitor serum electrolytes, cultures and CBC * Monitor Oxygen saturation, Oxygen via NC; at baseline * Send sputum cultures if possible * Azithromycin 500mg * Continue Duonebz q6H * Breathing continues to improve, physical exam improving as well (2) Left leg cellulitis: Code(s): L03.116 - Cellulitis of left lower limb Status: Acute Assessment and Plan: * Monitor vital signs, I&Os, neuro status and patient is a fall risk * Monitor serum electrolytes, CBC, cultures, WBC and temp curve * Gentle IV fluids resuscitation * Maintain Ceftriaxone, will need to transition to oral antibiotics upon discharge (3) Pneumonia: Qualifiers: Laterality: bilateral Lung location: unspecified part of lung Pneumonia type: due to unspecified organism Qualified Code(s): J18.9 - Pneumonia, unspecified organism Code(s): J18.9 - Pneumonia, unspecified organism Status: Acute Assessment and Plan: * CXR: Pulmonary opacities may represent edema, respiratory bronchiolitis, or atypical infection. Small left pleural effusion versus chronic pleural blunting. * started on CAP tx: azithromycin & ceftriaxone * Viral PCR: negative for Flu/COVID/RSV * Ordered legionella, mycoplasma and pneumococcal * Monitor vital signs, I&Os, neuro status and patient is a fall risk * Follow WBC, serum electrolytes, temperature curves and cultures * Send sputum cultures * Gentle IV fluid resuscitation (4) MRSA nasal colonization: Code(s): Z22.322 - Carrier or suspected carrier of Methicillin resistant Staphylococcus aureus Status: Acute Assessment and Plan: * Nasal MRSA + * Initiate PO Vancomycin * Monitor BCs-preliminary results showed no growth (5) Chronic hypoxic respiratory failure, on home oxygen therapy: Code(s): J96.11 - Chronic respiratory failure with hypoxia; Z99.81 - Dependence on supplemental oxygen Status: Acute Assessment and Plan: * Symptoms: SOB * SpO2: 98% * Oxygen supplementation: 3L NC * EKG: Afib w/ ventricular premature complex * Chest XR: Pulmonary opacities may represent edema, respiratory bronchiolitis, or atypical infection. Small left pleural effusion versus chronic pleural blunting. (6) Obstructive sleep apnea treated with BiPAP: Code(s): G47.33 - Obstructive sleep apnea (adult) (pediatric) Status: Chronic Assessment and Plan: * BiPAP will be provided for the patient to use while hospitalized (7) Chronic diastolic heart failure: Code(s): I50.32 - Chronic diastolic (congestive) heart failure Status: Chronic Assessment and Plan: * Echo 11/04/23: * LVH with overall good systolic function, hypokinesia is noted of the mid to apical septum and apex. * Sclerotic aortic valve which exhibits good leaflet separation. * Significant biatrial dilation. * Atrial fibrillation * Given 0.5mg Bumex given LE edema (although pt states this is baseline) * Monitor I/O and daily weight (8) Atrial fibrillation: Qualifiers: Atrial fibrillation type: unspecified Qualified Code(s): I48.91 - U nspecified atrial fibrillation Code(s): I48.91 - Unspecified atrial fibrillation Status: Chronic Assessment and Plan: * Rate controlled * Continue Apixiban (dvt prophylaxis) (9) Chronic anticoagulation: Code(s): Z79.01 - shelter (current) use of anticoagulants Status: Chronic Assessment and Plan: * Continue Apixiban (10) Chronic kidney disease, stage 3: Code(s): N18.30 - Chronic kidney disease, stage 3 unspecified Status: Acute Assessment and Plan: * Renal function is stable on review of previous labs. * Cr 1.76, GFR 38, BUN 47 Subjective Date/time seen: 11/07/24 07:47 Interval history: 73-year-old male with pmhx of chronic hypoxic respiratory failure on home oxygen, HFpEF, CAD, HTN, afib on chronic anticoagulation, [place] on BiPAP, ulcerative colitis, cirrhosis, CKD, chronic anemia, BPH, diet-controlled diabetes, MRSA bacteremia, and other comorbidities who presents with SOB. 11/07/2024 Patient sitting comfortably in bed at time examination. Denies any chest pain, shortness Deann breath, nausea/vomiting, or abdominal pain at this time. Continue current treatment for pneumonia, cellulitis, MRSA. Will likely be able to discharge tomorrow pending continued improvement of breathing. Review of Systems Review of Systems: 12 systems were reviewed and are negativ e except for as per HPI. Exam Narrative: General: Moderately ill-appearing male sitting up in bed in no acute distress. Weight: 107.7 kg. BMI: 33.1. HEENT: PERRL, EOMI. Sclera anicteric. Conjunctiva mildly injected. Tacky mucous membranes. Neck: Supple. L no JVD or lymphadenopathy. Respiratory: He is mildly tachypneic though appears in no respiratory distress. Scattered rhonchi in the upper lungs which improved with cough. Lung sounds are otherwise a bit coarse and diminished with expiratory wheezing. Cardiovascular: Irregularly regular rate rhythm. Soft murmur at the upper sternal border. Gastrointestinal: Abdomen is soft, obese, nontender, and nondistended with positive bowel sounds. Genitourinary: Patient and report candidal intertrigo which is being treated actively. This was not examined. Skin: Warm and dry. Chronic skin changes of the lower legs bilaterally. The left lower leg is erythematous and warm, concerning for cellulitis. Extremities: No cyanosis or clubbing. Bilateral lower extremity edema. Neurological: Alert and oriented. Cranial nerves 2-12 are grossly intact. No gross focal deficits to casual conversation. Psychiatric: Pleasant and cooperative with normal mood and affect. Objective Data Vital Signs Vital Signs: Vital Signs - 24 hr 11/06/24 07:49 11/06/24 07:49 11/06/24 08:00 Temperature Pulse Rate 82 77 Respiratory Rate 20 Blood Pressure Pulse Oximetry 98 Oxygen Delivery Nasal Cannula Oxygen Flow Rate 3 Fraction of Inspired Oxygen 11/06/24 08:07 11/06/24 09:21 11/06/24 09:30 Temperature Pulse Rate 89 97 Respiratory Rate 20 20 Blood Pressure Pulse Oximetry 94 Oxygen Delivery Nasal Cannula Oxygen Flow Rate 2 Fraction of Inspired Oxygen 11/06/24 12:00 11/06/24 14:00 11/06/24 14:14 Temperature 97.2 F L Pulse Rate 102 H 82 77 Respiratory Rate 18 20 Blood Pressure 120/66 Pulse Oximetry 99 Oxygen Delivery Oxygen Flow Rate Fraction of Inspired Oxygen 11/06/24 16:00 11/06/24 20:00 11/06/24 20:00 Temperature Pulse Rate 87 84 Respiratory Rate Blood Pressure Pulse Oximetry 98 Oxygen Delivery Nasal Cannula Oxygen Flow Rate 2 Fraction of Inspired Oxygen 11/06/24 20:29 11/06/24 20:40 11/06/24 20:41 Temperature Pulse Rate 79 79 77 Respiratory Rate 20 20 Blood Pressure Pulse Oximetry 98 Oxygen Delivery Nasal Cannula Oxygen Flow Rate 2 Fraction of Inspired Oxygen 11/06/24 22:00 11/07/24 00:00 11/07/24 01:14 Temperature 97.6 F Pulse Rate 80 96 87 Respiratory Rate 16 20 Blood Pressure 121/63 Pulse Oximetry 96 Oxygen Delivery Oxygen Flow Rate Fraction of Inspired Oxygen 11/07/24 01:21 11/07/24 01:22 11/07/24 04:00 Temperature Pulse Rate 82 82 88 Respiratory Rate 20 Blood Pressure Pulse Oximetry 99 Oxygen Delivery BiPAP Oxygen Flow Rate Fraction of Inspired Oxygen 11/07/24 06:00 11/07/24 07:25 11/07/24 07:30 Temperature 96.1 F L Pulse Rate 91 75 75 Respiratory Rate 16 20 20 Blood Pressure 130/71 Pulse Oximetry 98 98 Oxygen Delivery Nasal Cannula Oxygen Flow Rate 2 Fraction of Inspired Oxygen 28 11/07/24 07:39 Temperature Pulse Rate 80 Respiratory Rate 20 Blood Pressure Pulse Oximetry Oxygen Delivery Oxygen Flow Rate Fraction of Inspired Oxygen Intake/Output Intake/Output: Intake & Output 11/04/24 11/05/24 11/06/24 11/07/24 23:59 23:59 23:59 23:59 Intake Total 300 1380 500 Output Total 1150 Balance 300 230 500 Meds/Results Medications: Active Medications Generic Name Dose Route Start Last Admin Trade Name Freq PRN Reason Stop Dose Admin Acetaminophen 650 mg 11/05/24 23:56 Acetaminophen 325 Mg Tablet PO Q4H PRN Mild Pain (1-3) or Fever Albuterol/Ipratropium 3 ml 11/06/24 08:00 11/07/24 07:29 Ipratropium 0.5 Mg/Albuterol Sulfate 2.5 Mg Ampul.Neb 3 Ml INHALATION 3 ml Q6HRT ALEKSEY Administration Apixaban 5 mg 11/06/24 09:00 11/06/24 20:27 Apixaban 5 Mg Tablet PO 5 mg Q12HR ALEKSEY Administration Aspirin 81 mg 11/06/24 21:00 11/06/24 20:27 Aspirin 81 Mg Enteric Tablet PO 81 mg HS ALEKSEY Administration Baclofen 10 mg 11/06/24 21:00 11/06/24 20:27 Baclofen 10 Mg Tablet BY MOUTH 10 mg QHS ALEKSEY Administration Budesonide 0.5 mg 11/06/24 08:00 11/07/24 07:29 Budesonide Respule Neb 0.5 Mg/2 Ml Amp INHALATION 0.5 mg Q12HRT ALEKSEY Administration Bumetanide 0.5 mg 11/06/24 09:00 11/06/24 16:54 Bumetanide 0.5 Mg Tablet BY MOUTH 0.5 mg BID ALEKSEY Administration Dextrose 12.5 gm 11/06/24 00:39 Dextrose 50% 25 Gm/50 Ml Syringe IV PUSH PRN PRN Hypoglycemia Protocol Diclofenac Sodium 1 applic 11/06/24 05:01 Diclofenac Sodium 1% 100 Gm Gel (*Bkc) TOPICAL QID PRN Pain Ferrous Sulfate 325 mg 11/06/24 09:00 11/06/24 09:21 Ferrous Sulfate [address] PO 325 mg DAILY ALEKSEY Administration Fluconazole 200 mg 11/10/24 09:00 Fluconazole 100 Mg Tablet PO WEEKLY ALEKSEY Fluticasone Propionate 2 spray 11/06/24 09:00 11/06/24 09:26 Fluticasone Propionate 0.05% Na Spr 16 Gm Btl (*Bkc) NASAL 2 spray DAILY ALEKSEY Administration Folic Acid 0.4 mg 11/06/24 09:00 11/06/24 09:22 Folic Acid 0.4 Mg Tablet PO 0.4 mg DAILY ALEKSEY Administration Gabapentin 300 mg 11/06/24 09:00 11/06/24 16:54 Gabapentin 300 Mg Capsule PO 300 mg BID ALEKSEY Administration Glucagon 1 mg 11/06/24 00:39 Glucagon For Inj 1 Mg Vial IM PRN PRN Hypoglycemia Protocol Glucose 15 gm 11/06/24 00:39 Glucose Oral Gel 15 Gm Of Glucse In 37.5 Gm Tube PO PRN PRN Hypoglycemia Protocol Guaifenesin 1,200 mg 11/06/24 09:00 11/06/24 20:27 Guaifenesin 12 Hr 600 Mg Tabcr PO 1,200 mg Q12HR ALEKSEY Administration Hydrocortisone 1 applic 11/06/24 04:20 Hydrocortisone 1% 30 Gm Cream TOPICAL DAILY PRN itching Ceftriaxone Sodium 1 gm in 50 mls @ 100 mls/hr 11/06/24 21:00 11/06/24 21:13 Rocephin 1 Gm/Ns 50 Ml IVPB Infused Q24H ALEKSEY Infusion Azithromycin 500 mg in 250 mls @ 250 mls/hr 11/06/24 22:00 11/06/24 22:30 Zithromax IVPB Infused Q24H ALEKSEY Infusion Dextrose 1,000 mls @ 100 mls/hr 11/06/24 00:39 Dextrose 5% 1,000 Ml IVPB PRN PRN Hypoglycemia Protocol Vancomycin HCl 1,500 mg in 500 mls @ 250 mls/hr 11/07/24 05:00 11/07/24 06:03 Vancomycin 1,500 Mg/Ns 500 Ml IVPB Infused Q24H ALEKSEY Infusion Insulin Aspart 3 - 6 units 11/06/24 08:00 11/06/24 17:32 Insulin Aspart (*Bkc) 100 Units/Ml SUB-Q Not Given TIDWM ALEKSEY Protocol Insulin Aspart 1 - 3 units 11/06/24 21:00 11/06/24 20:30 Insulin Aspart (*Bkc) 100 Units/Ml SUB-Q 1 units HS ALEKSEY Administration Protocol Lactobacillus Acidophilus 1 tablet 11/06/24 09:00 11/06/24 16:54 Acidophilus/Bulgaricus Chewable Tablet PO 1 tablet TID ALEKSEY Administration Lidocaine 1 patch 11/06/24 04:36 Lidocaine 5% Patch TRANSDERM DAILY PRN pain Loratadine 10 mg 11/06/24 09:00 11/06/24 09:22 Loratadine 10 Mg Tablet PO 10 mg QAM ALEKSEY Administration Magnesium Oxide 400 mg 11/06/24 09:00 11/06/24 16:54 Magnesium Oxide 400 Mg Tablet PO 400 mg BID ALEKSEY Administration Metoprolol Succinate 50 mg 11/06/24 09:00 11/06/24 09:21 Metoprolol Succinate Ext Rel 50 Mg Tabcr PO 50 mg DAILY ALEKSEY Administration Multi-Ingred Cream/Lotion/Oil/Oint 1 applic 11/06/24 09:00 11/06/24 09:27 Eucerin Cream 120 Gm Jar TOPICAL 1 applic DAILY ALEKSEY Administration Mupirocin 1 applic 11/06/24 09:00 11/06/24 20:44 Mupirocin 2% Oint 22 Gm Tube EACH NARE 11/10/24 21:01 1 applic Q12HR ALEKSEY Administration Pantoprazole Sodium 40 mg 11/06/24 09:00 11/06/24 20:27 Pantoprazole 40 Mg Tablet PO 40 mg Q12HR ALEKSEY Administration Pyridoxine HCl 100 mg 11/06/24 09:00 11/06/24 09:22 Pyridoxine Hcl 50 Mg Tablet PO 100 mg QAM ALEKSEY Administration Roflumilast 500 mcg 11/06/24 09:00 11/06/24 09:23 Roflumilast 500 Mcg Tablet PO 500 mcg DAILY ALEKSEY Administration Spironolactone 12.5 mg 11/06/24 09:00 11/06/24 09:22 Spironolactone 12.5 Mg Tablet PO 12.5 mg DAILY ALEKSEY Administration Tamsulosin HCl 0.4 mg 11/06/24 21:00 11/06/24 20:27 Tamsulosin Hcl 0.4 Mg Capsule PO 0.4 mg HS ALEKSEY Administration Triamcinolone Acetonide 1 applic 11/06/24 09:00 11/06/24 09:27 Triamcinolone Acet 0.1% Cream 15 Gm Tube TOPICAL 1 applic DAILY ALEKSEY Administration Vitamin D 25 mcg 11/06/24 21:00 11/06/24 20:27 Cholecalciferol (Vitamin D3) 25 Mcg (1,000 Units) Tablet PO 25 mcg HS ALEKSEY Administration Radiology Results: ITS Impressions Chest X-Ray 11/05/24 20:15 IMPRESSION: Pulmonary opacities may represent edema, respiratory bronchiolitis, or atypical infection. Small left pleural effusion versus chronic pleural blunting. Labs Labs: Laboratory Results - last 24 hr 11/06/24 11/06/24 11/06/24 04:09 08:28 11:42 Creatinine Estim Creat Clear Calc Estimated GFR POC Capillary Glucose 165 H 253 H Procalcitonin 0.3 11/06/24 11/06/24 11/07/24 17:09 19:37 05:33 Creatinine 1.48 H Estim Creat Clear Calc 49 Estimated GFR 46 L POC Capillary Glucose 115 H 208 H Procalcitonin Quality VTE Prophylaxis VTE prophylaxis: pharmacologic ordered (on apixaban)
[2024-11-07 08:23] LABS: Glucose Point of Care 130 mg/dl (65-105)
[2024-11-07] MEDS: BUMETANIDE 0.5 MG TABLET BY MOUTH ×2 (08:30→17:36)
[2024-11-07] MEDS: guaiFENesin 12 HR 600 MG TABCR 1200 MG PO ×2 (08:30→20:58)
[2024-11-07] MEDS: ROFLUMILAST 500 MCG TABLET PO (08:30)
[2024-11-07] MEDS: PYRIDOXINE HCL 50 MG TABLET 100 MG PO (08:30)
[2024-11-07] MEDS: LORATADINE 10 MG TABLET PO (08:30)
[2024-11-07] MEDS: SPIRONOLACTONE 12.5 MG TABLET PO (08:30)
[2024-11-07] MEDS: FERROUS SULFATE 325 MG TABLET DR PO (08:31)
[2024-11-07] MEDS: PANTOPRAZOLE 40 MG TABLET PO ×2 (08:31→20:58)
[2024-11-07] MEDS: ACIDOPHILUS/BULGARICUS CHEWABLE TABLET 1 TABLET PO ×3 (08:31→17:35)
[2024-11-07] MEDS: GABAPENTIN 300 MG CAPSULE PO ×2 (08:31→17:36)
[2024-11-07] MEDS: MAGNESIUM OXIDE 400 MG TABLET PO ×2 (08:31→17:37)
[2024-11-07] MEDS: FOLIC ACID 0.4 MG TABLET PO (08:31)
[2024-11-07] MEDS: APIXABAN 5 MG TABLET PO ×2 (08:31→20:58)
[2024-11-07] MEDS: METOPROLOL SUCCINATE EXT REL 50 MG TABCR PO (08:32)
[2024-11-07] MEDS: FLUTICASONE PROPIONATE 0.05% NA SPR 16 GM BTL (*BKC) 2 SPRAY NASAL (08:34)
[2024-11-07] MEDS: EUCERIN CREAM 120 GM JAR 1 APPLIC TOPICAL (08:35)
[2024-11-07] MEDS: TRIAMCINOLONE ACET 0.1% CREAM 15 GM TUBE 1 APPLIC TOPICAL (08:35)
[2024-11-07] MEDS: MUPIROCIN 2% OINT 22 GM TUBE 1 APPLIC EACH NARE ×2 (08:35→21:07)
[2024-11-07 11:30] LABS: Basophils Absolute Auto 0.1 K/mm3 (0.0-0.1); Basophils Percent Auto 0.5 % (0.2-1.2); Eosinophils Percent Auto 0.2 % (0-4.4); Hematocrit 38.8 % (42.0-52.0); Hemoglobin 11.6 g/dL (14.0-18.0); Immature Granulocyte Absolute 0.26 K/mm3 (0.00-0.031); Immature Granulocyte Percent A 2.3 % (0-0.5); Lymphocytes Absolute Auto 0.87 K/mm3 (0.9-3.2); Lymphocytes Percent Auto 7.5 % (18.3-44.2); Mean Corpuscular HGB Conc 29.9 g/dl (32-36); Mean Corpuscular Hemoglobin 30.9 pg (26-34); Mean Corpuscular Volume 103.2 fl (80-100); Mean Platelet Volume 12.2 fl (7.4-10.4); Monocytes Absolute Auto 1.3 K/mm3 (0.1-0.6); Monocytes Percent Auto 11.3 % (2.6-8.5); Neutrophils Percent Auto 78.2 % (45.5-73.1); Platelet Count Result 213 k/mm3 (150-375); Red Blood Count 3.76 M/mm3 (4.6-6.20); Red Cell Distribution Width 14.8 % (11.5-14.5); White Blood Count 11.6 K/mm3 (4.5-10.0)
[2024-11-07 11:44] LABS: Alanine Aminotransferase 31 U/L (6-50); Albumin Level 3.3 g/dL (3.5-5.1); Alkaline Phosphatase 157 U/L (38-126); Anion Gap 7 mmol/L (4-12); Aspartate Amino Transferase 38 U/L (17-59); Bilirubin,Total 0.3 mg/dL (0.2-1.3); Blood Urea Nitrogen 46 mg/dL (9-20); Calcium 8.9 mg/dL (8.4-10.2); Carbon Dioxide 26 mmol/L (22-30); Chloride 103 mmol/L (98-107); Estimated CRCL calculation 48 ml/min; Estimated Glomerular Filt Rate 45; Glucose 120 mg/dL (65-110); Potassium 4.3 mmol/L (3.4-5.0); Sodium 136 mmol/L (137-145)
[2024-11-07 12:00] LABS: Glucose Point of Care 135 mg/dl (65-105)
[2024-11-07 16:42] LABS: Glucose Point of Care 112 mg/dl (65-105)
[2024-11-07] MEDS: BACLOFEN 10 MG TABLET BY MOUTH (20:58)
[2024-11-07] MEDS: TAMSULOSIN HCL 0.4 MG CAPSULE PO (20:58)
[2024-11-07] MEDS: CHOLECALCIFEROL (VITAMIN D3) 25 MCG (1,000 UNITS) TABLET PO (20:58)
[2024-11-07] MEDS: ASPIRIN 81 MG ENTERIC TABLET PO (20:58)
[2024-11-07] MEDS: AZITHROMYCIN 500 MG/NS 250 ML 500 MG/250 ML BAG 250 MG IVPB (21:00)
[2024-11-07] MEDS: ACETAMINOPHEN 325 MG TABLET 650 MG PO (23:13)
[2024-11-08] VITALS (17 sets, daily range): BP systolic 123–130; BP diastolic 68–70; PULSE 85–112; RESP 16–22; TEMP 36.2–36.6; O2SAT 96–100
[2024-11-08] LABS: Glucose Point of Care 118 mg/dl (65-105)
[2024-11-08] MEDS: IPRATROPIUM 0.5 MG/ALBUTEROL SULFATE 2.5 MG AMPUL.NEB 3 ML INHALATION ×4 (02:34→20:07)
[2024-11-08 05:27] LABS: Basophils Absolute Auto 0.1 K/mm3 (0.0-0.1); Basophils Percent Auto 1.5 % (0.2-1.2); Eosinophils Absolute Auto 0.3 K/mm3 (0-0.3); Hematocrit 38.3 % (42.0-52.0); Hemoglobin 11.7 g/dL (14.0-18.0); Immature Granulocyte Absolute 0.49 K/mm3 (0.00-0.031); Immature Granulocyte Percent A 5.2 % (0-0.5); Lymphocytes Percent Auto 10.6 % (18.3-44.2); Mean Corpuscular HGB Conc 30.5 g/dl (32-36); Mean Corpuscular Hemoglobin 30.9 pg (26-34); Mean Corpuscular Volume 101.1 fl (80-100); Mean Platelet Volume 11.7 fl (7.4-10.4); Monocytes Absolute Auto 1.1 K/mm3 (0.1-0.6); Monocytes Percent Auto 11.3 % (2.6-8.5); Neutrophils Absolute Auto 6.4 K/mm3 (1.3-6.7); Neutrophils Percent Auto 68.4 % (45.5-73.1); Platelet Count Result 202 k/mm3 (150-375); Red Blood Count 3.79 M/mm3 (4.6-6.20); Red Cell Distribution Width 14.4 % (11.5-14.5); White Blood Count 9.4 K/mm3 (4.5-10.0)
[2024-11-08 05:46] LABS: Alanine Aminotransferase 36 U/L (6-50); Albumin Level 3.3 g/dL (3.5-5.1); Alkaline Phosphatase 167 U/L (38-126); Anion Gap 4 mmol/L (4-12); Aspartate Amino Transferase 50 U/L (17-59); Bilirubin,Total 0.4 mg/dL (0.2-1.3); Blood Urea Nitrogen 43 mg/dL (9-20); Calcium 9.2 mg/dL (8.4-10.2); Carbon Dioxide 32 mmol/L (22-30); Chloride 100 mmol/L (98-107); Estimated CRCL calculation 45 ml/min; Estimated Glomerular Filt Rate 42; Glucose 107 mg/dL (65-110); Potassium 4.1 mmol/L (3.4-5.0); Sodium 136 mmol/L (137-145); Total Protein 6.1 g/dL (6.3-8.2)
[2024-11-08 05:47] LABS: Vancomycin Trough 15.4 ug/mL (10.0-20.0)
[2024-11-08] MEDS: VANCOMYCIN 1,500 MG/NS 500 ML 1,500 MG/500 ML BAG 250 MG IVPB (06:13)
[2024-11-08 07:47] LABS: Glucose Point of Care 117 mg/dl (65-105)
[2024-11-08] MEDS: BUDESONIDE RESPULE NEB 0.5 MG/2 ML AMP INHALATION ×2 (07:54→20:07)
[2024-11-08] MEDS: METOPROLOL SUCCINATE EXT REL 50 MG TABCR PO (08:49)
[2024-11-08] MEDS: LORATADINE 10 MG TABLET PO (08:50)
[2024-11-08] MEDS: guaiFENesin 12 HR 600 MG TABCR 1200 MG PO ×2 (08:50→21:24)
[2024-11-08] MEDS: PANTOPRAZOLE 40 MG TABLET PO ×2 (08:50→21:23)
[2024-11-08] MEDS: ROFLUMILAST 500 MCG TABLET PO (08:50)
[2024-11-08] MEDS: BUMETANIDE 0.5 MG TABLET BY MOUTH ×2 (08:50→17:34)
[2024-11-08] MEDS: FERROUS SULFATE 325 MG TABLET DR PO (08:50)
[2024-11-08] MEDS: SPIRONOLACTONE 12.5 MG TABLET PO (08:50)
[2024-11-08] MEDS: ACIDOPHILUS/BULGARICUS CHEWABLE TABLET 1 TABLET PO ×3 (08:50→17:34)
[2024-11-08] MEDS: FOLIC ACID 0.4 MG TABLET PO (08:50)
[2024-11-08] MEDS: PYRIDOXINE HCL 50 MG TABLET 100 MG PO (08:51)
[2024-11-08] MEDS: APIXABAN 5 MG TABLET PO ×2 (08:51→21:23)
[2024-11-08] MEDS: MAGNESIUM OXIDE 400 MG TABLET PO ×2 (08:51→17:34)
[2024-11-08] MEDS: GABAPENTIN 300 MG CAPSULE PO ×2 (08:51→17:34)
[2024-11-08] MEDS: MUPIROCIN 2% OINT 22 GM TUBE 1 APPLIC EACH NARE ×2 (08:55→21:24)
[2024-11-08] MEDS: FLUTICASONE PROPIONATE 0.05% NA SPR 16 GM BTL (*BKC) 2 SPRAY NASAL (08:55)
[2024-11-08] MEDS: EUCERIN CREAM 120 GM JAR 1 APPLIC TOPICAL (08:55)
[2024-11-08] MEDS: TRIAMCINOLONE ACET 0.1% CREAM 15 GM TUBE 1 APPLIC TOPICAL (08:55)
--- NOTE | 2024-11-08 11:28 | P.PNIM_ITS ---
Progress Note: A&P Assessment and Plan (1) Acute exacerbation of chronic obstructive pulmonary disease: Code(s): J44.1 - Chronic obstructive pulmonary disease with (acute) exacerbation Status: Acute Assessment and Plan: * Monitor vital signs, I&Os, neuro status and patient is a fall risk * Monitor serum electrolytes, cultures and CBC * Monitor Oxygen saturation, Oxygen via NC; at baseline * Sputum culture showed contaminated, repeat * Azithromycin 500mg * Continue Duonebz q6H * Patient continues to endorse some shortness of breath although it improves with duonebs (2) Left leg cellulitis: Code(s): L03.116 - Cellulitis of left lower limb Status: Acute Assessment and Plan: * Monitor vital signs, I&Os, neuro status and patient is a fall risk * Monitor serum electrolytes, CBC, cultures, WBC and temp curve * Gentle IV fluids resuscitation * Maintain Ceftriaxone, will need to transition to oral antibiotics upon discharge (3) Pneumonia: Qualifiers: Laterality: bilateral Lung location: unspecified part of lung Pneumonia type: due to unspecified organism Qualified Code(s): J18.9 - Pneumonia, unspecified organism Code(s): J18.9 - Pneumonia, unspecified organism Status: Acute Assessment and Plan: * CXR: Pulmonary opacities may represent edema, respiratory bronchiolitis, or atypical infection. Small left pleural effusion versus chronic pleural blunting. * started on CAP tx: azithromycin & ceftriaxone * Viral PCR: negative for Flu/COVID/RSV * Ordered legionella, mycoplasma and pneumococcal * Monitor vital signs, I&Os, neuro status and patient is a fall risk * Follow WBC, serum electrolytes, temperature curves and cultures * Sputum culture showed contaminated, repeat * Gentle IV fluid resuscitation (4) MRSA nasal colonization: Code(s): Z22.322 - Carrier or suspected carrier of Methicillin resistant Staphylococcus aureus Status: Acute Assessment and Plan: * Nasal MRSA + * Initiate IV Vancomycin * Monitor BCs-preliminary results showed no growth (5) Chronic hypoxic respiratory failure, on home oxygen therapy: Code(s): J96.11 - Chronic respiratory failure with hypoxia; Z99.81 - Dependence on supplemental oxygen Status: Acute Assessment and Plan: * Symptoms: SOB * SpO2: 98% * Oxygen supplementation: 3L NC * EKG: Afib w/ ventricular premature complex * Chest XR: Pulmonary opacities may represent edema, respiratory bronchiolitis, or atypical infection. Small left pleural effusion versus chronic pleural b lunting. (6) Obstructive sleep apnea treated with BiPAP: Code(s): G47.33 - Obstructive sleep apnea (adult) (pediatric) Status: Chronic Assessment and Plan: * BiPAP will be provided for the patient to use while hospitalized (7) Chronic diastolic heart failure: Code(s): I50.32 - Chronic diastolic (congestive) heart failure Status: Chronic Assessment and Plan: * Echo 11/04/23: * LVH with overall good systolic function, hypokinesia is noted of the mid to apical septum and apex. * Sclerotic aortic valve which exhibits good leaflet separation. * Significant biatrial dilation. 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 * Cr 1.76, GFR 38, BUN 47 (baseline appears to be around 1.5) Subjective Date/time seen: 11/08/24 11:28 Interval history: 73-year-old male with pmhx of chronic hypoxic respiratory failure on home oxygen, HFpEF, CAD, HTN, afib on chronic anticoagulation, [place] on BiPAP, ulcerative colitis, cirrhosis, CKD, chronic anemia, BPH, diet-controlled diabetes, MRSA bacteremia, and other comorbidities who presents with SOB. 11/08/2024 Patient sitting comfortably in bed at time examination. Denies any chest pain, n/v, abdominal pain at this time. Endorses some shortness of breath throughout the night and this AM but feels better after breathing treatment this morning. Lung sounds still have some wheezing throughout and he endorses general malaise. Review of Systems Review of Systems: 12 systems were reviewed and are negativ e except for as per HPI. Exam Narrative: General: Moderately ill-appearing male sitting up in bed in no acute distress. Weight: 107.7 kg. BMI: 33.1. HEENT: PERRL, EOMI. Sclera anicteric. Conjunctiva mildly injected. Tacky mucous membranes. Neck: Supple. L no JVD or lymphadenopathy. Respiratory: He is mildly tachypneic though appears in no respiratory distress. Scattered rhonchi in the upper lungs which improved with cough. Lung sounds are otherwise a bit coarse and diminished with expiratory wheezing. Cardiovascular: Irregularly regular rate rhythm. Soft murmur at the upper sternal border. Gastrointestinal: Abdomen is soft, obese, nontender, and nondistended with positive bowel sounds. Genitourinary: Patient and report candidal intertrigo which is being treated actively. This was not examined. Skin: Warm and dry. Chronic skin changes of the lower legs bilaterally. The left lower leg is erythematous and warm, concerning for cellulitis. Extremities: No cyanosis or clubbing. Bilateral lower extremity edema. Neurological: Alert and oriented. Cranial nerves 2-12 are grossly intact. No gross focal deficits to casual conversation. Psychiatric: Pleasant and cooperative with normal mood and affect. Objective Data Vital Signs Vital Signs: Vital Signs - 24 hr 11/07/24 12:00 11/07/24 14:00 11/07/24 14:15 Temperature 97.0 F L Pulse Rate 97 76 77 Respiratory Rate 19 20 Blood Pressure 130/78 Pulse Oximetry 97 Oxygen Delivery Oxygen Flow Rate 11/07/24 16:00 11/07/24 19:50 11/07/24 20:00 Temperature Pulse Rate 112 H 60 Respiratory Rate 18 Blood Pressure Pulse Oximetry 100 Oxygen Delivery Nasal Cannula Oxygen Flow Rate 2 11/07/24 20:00 11/07/24 20:10 11/07/24 20:49 Temperature 97.7 F Pulse Rate 102 H 62 105 H Respiratory Rate 16 18 Blood Pressure 137/72 Pulse Oximetry 100 Oxygen Delivery Oxygen Flow Rate 11/08/24 00:00 11/08/24 02:34 11/08/24 02:42 Temperature Pulse Rate 85 100 96 Respiratory Rate 18 16 Blood Pressure Pulse Oximetry Oxygen Delivery Oxygen Flow Rate 11/08/24 04:00 11/08/24 06:00 11/08/24 08:00 Temperature 97.1 F L Pulse Rate 104 H 94 104 H Respiratory Rate 18 20 Blood Pressure 123/68 Pulse Oximetry 98 98 Oxygen Delivery Nasal Cannula Oxygen Flow Rate 2 11/08/24 08:00 11/08/24 08:00 11/08/24 08:00 Temperature Pulse Rate 104 H 112 H 102 H Respiratory Rate 16 Blood Pressure Pulse Oximetry 97 Oxygen Delivery Nasal Cannula Oxygen Flow Rate 2 11/08/24 08:49 Temperature Pulse Rate 112 H Respiratory Rate Blood Pressure Pulse Oximetry Oxygen Delivery Oxygen Flow Rate Intake/Output Intake/Output: Intake & Output 11/05/24 11/06/24 11/07/24 11/08/24 23:59 23:59 23:59 23:59 Intake Total 300 1380 2580 1030 Output Total 1150 1000 900 Balance 991 245 7861 130 Meds/Results Medications: Active Medications Generic Name Dose Route Start Last Admin Trade Name Freq PRN Reason Stop Dose Admin Acetaminophen 650 mg 11/05/24 23:56 11/07/24 23:13 Acetaminophen 325 Mg Tablet PO 650 mg Q4H PRN Administration Mild Pain (1-3) or Fever Albuterol/Ipratropium 3 ml 11/06/24 08:00 11/08/24 07:54 Ipratropium 0.5 Mg/Albuterol Sulfate 2.5 Mg Ampul.Neb 3 Ml INHALATION 3 ml Q6HRT ALEKSEY Administration Apixaban 5 mg 11/06/24 09:00 11/08/24 08:51 Apixaban 5 Mg Tablet PO 5 mg Q12HR ALEKSEY Administration Aspirin 81 mg 11/06/24 21:00 11/07/24 20:58 Aspirin 81 Mg Enteric Tablet PO 81 mg HS ALEKSEY Administration Baclofen 10 mg 11/06/24 21:00 11/07/24 20:58 Baclofen 10 Mg Tablet BY MOUTH 10 mg QHS ALEKSEY Administration Budesonide 0.5 mg 11/06/24 08:00 11/08/24 07:54 Budesonide Respule Neb 0.5 Mg/2 Ml Amp INHALATION 0.5 mg Q12HRT ALEKSEY Administration Bumetanide 0.5 mg 11/06/24 09:00 11/08/24 08:50 Bumetanide 0.5 Mg Tablet BY MOUTH 0.5 mg BID ALEKSEY Administration Dextrose 12.5 gm 11/06/24 00:39 Dextrose 50% 25 Gm/50 Ml Syringe IV PUSH PRN PRN Hypoglycemia Protocol Diclofenac Sodium 1 applic 11/06/24 05:01 Diclofenac Sodium 1% 100 Gm Gel (*Bkc) TOPICAL QID PRN Pain Ferrous Sulfate 325 mg 11/06/24 09:00 11/08/24 08:50 Ferrous Sulfate [address] PO 325 mg DAILY ALEKSEY Administration Fluconazole 200 mg 11/10/24 09:00 Fluconazole 100 Mg Tablet PO WEEKLY ALEKSEY Fluticasone Propionate 2 spray 11/06/24 09:00 11/08/24 08:55 Fluticasone Propionate 0.05% Na Spr 16 Gm Btl (*Bkc) NASAL 2 spray DAILY ALEKSEY Administration Folic Acid 0.4 mg 11/06/24 09:00 11/08/24 08:50 Folic Acid 0.4 Mg Tablet PO 0.4 mg DAILY ALEKSEY Administration Gabapentin 300 mg 11/06/24 09:00 11/08/24 08:51 Gabapentin 300 Mg Capsule PO 300 mg BID ALEKSEY Administration Glucagon 1 mg 11/06/24 00:39 Glucagon For Inj 1 Mg Vial IM PRN PRN Hypoglycemia Protocol Glucose 15 gm 11/06/24 00:39 Glucose Oral Gel 15 Gm Of Glucse In 37.5 Gm Tube PO PRN PRN Hypoglycemia Protocol Guaifenesin 1,200 mg 11/06/24 09:00 11/08/24 08:50 Guaifenesin 12 Hr 600 Mg Tabcr PO 1,200 mg Q12HR ALEKSEY Administration Hydrocortisone 1 applic 11/06/24 04:20 Hydrocortisone 1% 30 Gm Cream TOPICAL DAILY PRN itching Ceftriaxone Sodium 1 gm in 50 mls @ 100 mls/hr 11/06/24 21:00 11/07/24 21:29 Rocephin 1 Gm/Ns 50 Ml IVPB Infused Q24H ALEKSEY Infusion Azithromycin 500 mg in 250 mls @ 250 mls/hr 11/06/24 22:00 11/07/24 22:00 Zithromax IVPB Infused Q24H ALEKSEY Infusion Dextrose 1,000 mls @ 100 mls/hr 11/06/24 00:39 Dextrose 5% 1,000 Ml IVPB PRN PRN Hypoglycemia Protocol Vancomycin HCl 1,500 mg in 500 mls @ 250 mls/hr 11/08/24 06:00 11/08/24 08:15 Vancomycin 1,500 Mg/Ns 500 Ml IVPB Infused Q24H ALEKSEY Infusion Insulin Aspart 3 - 6 units 11/06/24 08:00 11/08/24 09:03 Insulin Aspart (*Bkc) 100 Units/Ml SUB-Q Not Given TIDWM [facility] Protocol Insulin Aspart 1 - 3 units 11/06/24 21:00 11/07/24 21:08 Insulin Aspart (*Bkc) 100 Units/Ml SUB-Q Not Given HS [facility] Protocol Lactobacillus Acidophilus 1 tablet 11/06/24 09:00 11/08/24 08:50 Acidophilus/Bulgaricus Chewable Tablet PO 1 tablet TID ALEKSEY Administration Lidocaine 1 patch 11/06/24 04:36 Lidocaine 5% Patch TRANSDERM DAILY PRN pain Loratadine 10 mg 11/06/24 09:00 11/08/24 08:50 Loratadine 10 Mg Tablet PO 10 mg QAM ALEKSEY Administration Magnesium Oxide 400 mg 11/06/24 09:00 11/08/24 08:51 Magnesium Oxide 400 Mg Tablet PO 400 mg BID ALEKSEY Administration Metoprolol Succinate 50 mg 11/06/24 09:00 11/08/24 08:49 Metoprolol Succinate Ext Rel 50 Mg Tabcr PO 50 mg DAILY ALEKSEY Administration Multi-Ingred Cream/Lotion/Oil/Oint 1 applic 11/06/24 09:00 11/08/24 08:55 Eucerin Cream 120 Gm Jar TOPICAL 1 applic DAILY ALEKSEY Administration Mupirocin 1 applic 11/06/24 09:00 11/08/24 08:55 Mupirocin 2% Oint 22 Gm Tube EACH NARE 11/10/24 21:01 1 applic Q12HR ALEKSEY Administration Pantoprazole Sodium 40 mg 11/06/24 09:00 11/08/24 08:50 Pantoprazole 40 Mg Tablet PO 40 mg Q12HR ALEKSEY Administration Pyridoxine HCl 100 mg 11/06/24 09:00 11/08/24 08:51 Pyridoxine Hcl 50 Mg Tablet PO 100 mg QAM ALEKSEY Administration Roflumilast 500 mcg 11/06/24 09:00 11/08/24 08:50 Roflumilast 500 Mcg Tablet PO 500 mcg DAILY ALEKSEY Administration Spironolactone 12.5 mg 11/06/24 09:00 11/08/24 08:50 Spironolactone 12.5 Mg Tablet PO 12.5 mg DAILY ALEKSEY Administration Tamsulosin HCl 0.4 mg 11/06/24 21:00 11/07/24 20:58 Tamsulosin Hcl 0.4 Mg Capsule PO 0.4 mg HS ALEKSEY Administration Triamcinolone Acetonide 1 applic 11/06/24 09:00 11/08/24 08:55 Triamcinolone Acet 0.1% Cream 15 Gm Tube TOPICAL 1 applic DAILY ALEKSEY Administration Vitamin D 25 mcg 11/06/24 21:00 11/07/24 20:58 Cholecalciferol (Vitamin D3) 25 Mcg (1,000 Units) Tablet PO 25 mcg HS ALEKSEY Administration Radiology Results: ITS Impressions Chest X-Ray 11/05/24 20:15 IMPRESSION: Pulmonary opacities may represent edema, respiratory bronchiolitis, or atypical infection. Small left pleural effusion versus chronic pleural blunting. Labs Labs: Laboratory Results - last 24 hr 11/07/24 11/07/24 11/07/24 05:33 11:57 16:39 WBC 11.6 H RBC 3.76 L Hgb 11.6 L Hct 38.8 L MCV 103.2 H MCH 30.9 MCHC 29.9 L RDW 14.8 H Plt Count 213 MPV 12.2 H Immature Gran % (Auto) 2.3 H Neut % (Auto) 78.2 H Lymph % (Auto) 7.5 L Humphreys % (Auto) 11.3 H Eos % (Auto) 0.2 Baso % (Auto) 0.5 Lymph # (Auto) 0.87 L Humphreys # (Auto) 1.3 H Eos # (Auto) 0.0 Baso # (Auto) 0.1 Abs Immat Gran (auto) 0.26 H Absolute Neuts (auto) 9.0 H Absolute Nucleated RBC 0.000 Nucleated RBC % 0.0 Sodium 136 L Potassium 4.3 Chloride 103 Carbon Dioxide 26 Anion Gap 7 BUN 46 H Creatinine 1.52 H Estim Creat Clear Calc 48 Estimated GFR 45 L Glucose 120 H POC Capillary Glucose 135 H 112 H Calcium 8.9 Total Bilirubin 0.3 AST 38 ALT 31 Alkaline Phosphatase 157 H Total Protein 6.0 L Albumin 3.3 L Vancomycin Trough 11/07/24 11/08/24 11/08/24 20:48 05:17 07:30 WBC 9.4 RBC 3.79 L Hgb 11.7 L Hct 38.3 L MCV 101.1 H MCH 30.9 MCHC 30.5 L RDW 14.4 Plt Count 202 MPV 11.7 H Immature Gran % (Auto) 5.2 H Neut % (Auto) 68.4 Lymph % (Auto) 10.6 L Humphreys % (Auto) 11.3 H Eos % (Auto) 3.0 Baso % (Auto) 1.5 H Lymph # (Auto) 1.00 Humphreys # (Auto) 1.1 H Eos # (Auto) 0.3 Baso # (Auto) 0.1 Abs Immat Gran (auto) 0.49 H Absolute Neuts (auto) 6.4 Absolute Nucleated RBC 0.000 Nucleated RBC % 0.0 Sodium 136 L Potassium 4.1 Chloride 100 Carbon Dioxide 32 H Anion Gap 4 BUN 43 H Creatinine 1.62 H Estim Creat Clear Calc 45 Estimated GFR 42 L Glucose 107 POC Capillary Glucose 118 H 117 H Calcium 9.2 Total Bilirubin 0.4 AST 50 ALT 36 Alkaline Phosphatase 167 H Total Protein 6.1 L Albumin 3.3 L Vancomycin Trough 15.4 Quality VTE Prophylaxis VTE prophylaxis: pharmacologic ordered (on apixaban)
[2024-11-08 11:38] LABS: Glucose Point of Care 162 mg/dl (65-105)
[2024-11-08 15:43] LABS: Pneumococcal Antigen Urine NOT DETECTED
[2024-11-08 16:42] LABS: Glucose Point of Care 120 mg/dl (65-105)
[2024-11-08] MEDS: ACETAMINOPHEN 325 MG TABLET 650 MG PO (17:38)
[2024-11-08 19:51] LABS: Glucose Point of Care 179 mg/dl (65-105)
[2024-11-08 21:03] LABS: Legionella pneumophila Ag Ur NOT DETECTED
[2024-11-08] MEDS: ASPIRIN 81 MG ENTERIC TABLET PO (21:23)
[2024-11-08] MEDS: BACLOFEN 10 MG TABLET BY MOUTH (21:23)
[2024-11-08] MEDS: SENNA/DOCUSATE SODIUM TABLET 1 TAB PO (21:23)
[2024-11-08] MEDS: CHOLECALCIFEROL (VITAMIN D3) 25 MCG (1,000 UNITS) TABLET PO (21:24)
[2024-11-08] MEDS: TAMSULOSIN HCL 0.4 MG CAPSULE PO (21:24)
[2024-11-08] MEDS: AZITHROMYCIN 500 MG/NS 250 ML 500 MG/250 ML BAG 250 MG IVPB (21:25)
[2024-11-09] VITALS (19 sets, daily range): BP systolic 118–120; BP diastolic 67–69; PULSE 90–107; RESP 14–22; TEMP 36.7–36.8; O2SAT 94–100
[2024-11-09] MEDS: IPRATROPIUM 0.5 MG/ALBUTEROL SULFATE 2.5 MG AMPUL.NEB 3 ML INHALATION ×4 (01:44→19:40)
[2024-11-09] MEDS: ACETAMINOPHEN 325 MG TABLET 650 MG PO ×2 (03:45→08:46)
[2024-11-09] MEDS: VANCOMYCIN 1,500 MG/NS 500 ML 1,500 MG/500 ML BAG 250 MG IVPB (06:19)
[2024-11-09 06:34] LABS: Estimated CRCL calculation 48 ml/min; Estimated Glomerular Filt Rate 46
[2024-11-09 06:52] LABS: Glucose Point of Care 117 mg/dl (65-105)
[2024-11-09 08:31] LABS: Basophils Absolute Auto 0.1 K/mm3 (0.0-0.1); Eosinophils Absolute Auto 0.4 K/mm3 (0-0.3); Hematocrit 37.5 % (42.0-52.0); Hemoglobin 11.6 g/dL (14.0-18.0); Immature Granulocyte Absolute 0.62 K/mm3 (0.00-0.031); Lymphocytes Absolute Auto 1.07 K/mm3 (0.9-3.2); Lymphocytes Percent Auto 10.3 % (18.3-44.2); Mean Corpuscular HGB Conc 30.9 g/dl (32-36); Mean Corpuscular Hemoglobin 30.9 pg (26-34); Mean Platelet Volume 12.6 fl (7.4-10.4); Monocytes Absolute Auto 1.2 K/mm3 (0.1-0.6); Monocytes Percent Auto 11.7 % (2.6-8.5); Platelet Count Result 206 k/mm3 (150-375); Red Blood Count 3.75 M/mm3 (4.6-6.20); Red Cell Distribution Width 14.3 % (11.5-14.5); White Blood Count 10.4 K/mm3 (4.5-10.0)
[2024-11-09] MEDS: guaiFENesin 12 HR 600 MG TABCR 1200 MG PO ×2 (08:44→20:59)
[2024-11-09] MEDS: PANTOPRAZOLE 40 MG TABLET PO ×2 (08:44→20:59)
[2024-11-09] MEDS: MAGNESIUM OXIDE 400 MG TABLET PO ×2 (08:44→16:25)
[2024-11-09] MEDS: BUMETANIDE 0.5 MG TABLET BY MOUTH ×2 (08:44→16:25)
[2024-11-09] MEDS: ROFLUMILAST 500 MCG TABLET PO (08:44)
[2024-11-09] MEDS: GABAPENTIN 300 MG CAPSULE PO ×2 (08:45→16:25)
[2024-11-09] MEDS: APIXABAN 5 MG TABLET PO ×2 (08:45→20:58)
[2024-11-09] MEDS: PYRIDOXINE HCL 50 MG TABLET 100 MG PO (08:45)
[2024-11-09] MEDS: ACIDOPHILUS/BULGARICUS CHEWABLE TABLET 1 TABLET PO ×3 (08:45→16:24)
[2024-11-09] MEDS: SPIRONOLACTONE 12.5 MG TABLET PO (08:45)
[2024-11-09] MEDS: LORATADINE 10 MG TABLET PO (08:45)
[2024-11-09] MEDS: FOLIC ACID 0.4 MG TABLET PO (08:45)
[2024-11-09] MEDS: METOPROLOL SUCCINATE EXT REL 50 MG TABCR PO (08:45)
[2024-11-09] MEDS: FERROUS SULFATE 325 MG TABLET DR PO (08:45)
[2024-11-09] MEDS: MUPIROCIN 2% OINT 22 GM TUBE 1 APPLIC EACH NARE ×2 (08:47→20:57)
[2024-11-09] MEDS: FLUTICASONE PROPIONATE 0.05% NA SPR 16 GM BTL (*BKC) 2 SPRAY NASAL (08:47)
[2024-11-09] MEDS: TRIAMCINOLONE ACET 0.1% CREAM 15 GM TUBE 1 APPLIC TOPICAL (08:48)
[2024-11-09] MEDS: EUCERIN CREAM 120 GM JAR 1 APPLIC TOPICAL (08:48)
[2024-11-09] MEDS: BUDESONIDE RESPULE NEB 0.5 MG/2 ML AMP INHALATION ×2 (09:01→19:40)
[2024-11-09 09:15] LABS: Alanine Aminotransferase 38 U/L (6-50); Albumin Level 3.2 g/dL (3.5-5.1); Alkaline Phosphatase 165 U/L (38-126); Anion Gap 6 mmol/L (4-12); Aspartate Amino Transferase 54 U/L (17-59); Bilirubin,Total 0.5 mg/dL (0.2-1.3); Blood Urea Nitrogen 41 mg/dL (9-20); Calcium 9.1 mg/dL (8.4-10.2); Carbon Dioxide 28 mmol/L (22-30); Chloride 102 mmol/L (98-107); Estimated CRCL calculation 50 ml/min; Estimated Glomerular Filt Rate 48; Glucose 118 mg/dL (65-110); Potassium 4.1 mmol/L (3.4-5.0); Sodium 136 mmol/L (137-145)
[2024-11-09 09:16] LABS: Glucose Point of Care 120 mg/dl (65-105)
--- NOTE | 2024-11-09 11:07 | PM.IMPN ---
Progress Note: A&P Assessment and Plan (1) Acute exacerbation of chronic obstructive pulmonary disease: Code(s): J44.1 - Chronic obstructive pulmonary disease with (acute) exacerbation Status: Acute Assessment and Plan: Monitor vital signs, I&Os, neuro status and patient is a fall risk Monitor serum electrolytes, cultures and CBC Monitor Oxygen saturation, Oxygen via NC; at baseline Sputum culture showed contaminated, repeat Azithromycin 500mg Continue Duonebz q6H Patient continues to endorse some shortness of breath although it improves with duonebs Oral cefdinir (2) Left leg cellulitis: Code(s): L03.116 - Cellulitis of left lower limb Status: Acute Assessment and Plan: Monitor vital signs, I&Os, neuro status and patient is a fall risk Monitor serum electrolytes, CBC, cultures, WBC and temp curve Gentle IV fluids resuscitation Ceftriaxone discontinued (3) Pneumonia: Qualifiers: Laterality: bilateral Lung location: unspecified part of lung Pneumonia type: due to unspecified organism Qualified Code(s): J18.9 - Pneumonia, unspecified organism Code(s): J18.9 - Pneumonia, unspecified organism Status: Acute Assessment and Plan: CXR: Pulmonary opacities may represent edema, respiratory bronchiolitis, or atypical infection. Small left pleural effusion versus chronic pleural blunting. started on CAP tx: azithromycin & ceftriaxone Viral PCR: negative for Flu/COVID/RSV Ordered legionella, mycoplasma and pneumococcal Monitor vital signs, I&Os, neuro status and patient is a fall risk Follow WBC, serum electrolytes, temperature curves and cultures Sputum culture showed contaminated, repeat Gentle IV fluid resuscitation Switch to oral cefdinir (4) MRSA nasal colonization: Code(s): Z22.322 - Carrier or suspected carrier of Methicillin resistant Staphylococcus aureus Status: Acute Assessment and Plan: Nasal MRSA + Initiate IV Vancomycin Monitor BCs-preliminary results showed no growth (5) Chronic hypoxic respiratory failure, on home oxygen therapy: Code(s): J96.11 - Chronic respiratory failure with hypoxia; Z99.81 - Dependence on supplemental oxygen Status: Acute Assessment and Plan: Symptoms: SOB SpO2: 98% Oxygen supplementation: 3L NC EKG: Afib w/ ventricular premature complex Chest XR: Pulmonary opacities may represent edema, respiratory bronchiolitis, or atypical infection. Small left pleural effusion versus chronic pleural blunting. (6) Obstructive sleep apnea treated with BiPAP: Code(s): G47.33 - Obstructive sleep apnea (adult) (pediatric) Status: Chronic Assessment and Plan: BiPAP will be provided for the patient to use while hospitalized (7) Chronic diastolic heart failure: Code(s): I50.32 - Chronic diastolic (congestive) heart failure Status: Chronic Assessment and Plan: Echo 11/04/23: LVH with overall good systolic function, hypokinesia is noted of the mid to apical septum and apex. Sclerotic aortic valve which exhibits good leaflet separation. Significant biatrial dilation. Atrial fibrillation Given 0.5mg Bumex given LE edema (although pt states this is baseline) Monitor I/O and daily weight (8) Atrial fibrillation: Qualifiers: Atrial fibrillation type: unspecified Qualified Code(s): I48.91 - Unspecified atrial fibrillation Code(s): I48.91 - Unspecified atrial fibrillation Status: Chronic Assessment and Plan: Rate controlled - Metoprolol Continue Apixiban (dvt prophylaxis) (9) Chronic anticoagulation: Code(s): Z79.01 - diet aid (current) use of anticoagulants Status: Chronic Assessment and Plan: Continue Apixiban (10) Chronic kidney disease, stage 3: Code(s): N18.30 - Chronic kidney disease, stage 3 unspecified Status: Acute Assessment and Plan: Renal function is stable on review of previous labs. Cr 1.76, GFR 38, BUN 47 (baseline appears to be around 1.5) 11/09: Creatinine 1.44, down from 1.76 Subjective Date/time seen: 11/09/24 11:07 Interval history: 73-year-old male with pmhx of chronic hypoxic respiratory failure on home oxygen, HFpEF, CAD, HTN, afib on chronic anticoagulation, [place] on BiPAP, ulcerative colitis, cirrhosis, CKD, chronic anemia, BPH, diet-controlled diabetes, MRSA bacteremia, and other comorbidities who presents with SOB. 11/09/2024 Patient sitting comfortably in bed at time examination. Denies any chest pain, n/v, abdominal pain at this time. Patient still has some shortness of breath today but states that it has slightly improved since yesterday. Received breathing treatment this morning with marked improvement in breathing, lung sounds appear less wheezy today than yesterday. PT/OT eval still Pending this time. No leukocytosis or fever at this time. Will repeat chest x-ray to assess lung herrera. Review of Systems Review of Systems: 12 systems were reviewed and are negative except for as per HPI. Exam Narrative: General: Moderately ill-appearing male sitting up in bed in no acute distress. Weight: 107.7 kg. BMI: 33.1. HEENT: PERRL, EOMI. Sclera anicteric. Conjunctiva mildly injected. Tacky mucous membranes. Neck: Supple. L no JVD or lymphadenopathy. Respiratory: He is mildly tachypneic though appears in no respiratory distress. Scattered rhonchi in the upper lungs which improved with cough. Lung sounds are otherwise a bit coarse and diminished with expiratory wheezing. Cardiovascular: Irregularly regular rate rhythm. Soft murmur at the upper sternal border. Gastrointestinal: Abdomen is soft, obese, nontender, and nondistended with positive bowel sounds. Genitourinary: Patient and report candidal intertrigo which is being treated actively. This was not examined. Skin: Warm and dry. Chronic skin changes of the lower legs bilaterally. The left lower leg is erythematous and warm, concerning for cellulitis. Extremities: No cyanosis or clubbing. Bilateral lower extremity edema. Neurological: Alert and oriented. Cranial nerves 2-12 are grossly intact. No gross focal deficits to casual conversation. Psychiatric: Pleasant and cooperative with normal mood and affect. Objective Data Vital Signs Vital Signs: Vital Signs - 24 hr 11/08/24 12:21 11/08/24 14:00 11/08/24 15:32 Temperature 97.9 F Pulse Rate 97 89 Respiratory Rate 22 H Blood Pressure 130/70 Pulse Oximetry 98 99 Oxygen Delivery Room Air Oxygen Flow Rate Fraction of Inspired Oxygen 11/08/24 15:32 11/08/24 15:48 11/08/24 17:06 Temperature Pulse Rate 99 92 101 H Respiratory Rate 20 20 Blood Pressure Pulse Oximetry Oxygen Delivery Oxygen Flow Rate Fraction of Inspired Oxygen 11/08/24 20:08 11/08/24 20:22 11/08/24 20:23 Temperature Pulse Rate 96 100 Respiratory Rate 20 20 Blood Pressure Pulse Oximetry 97 Oxygen Delivery Room Air Oxygen Flow Rate Fraction of Inspired Oxygen 11/08/24 21:20 11/08/24 21:20 11/08/24 21:42 Temperature 97.7 F Pulse Rate 100 96 Respiratory Rate 16 Blood Pressure Pulse Oximetry 96 100 Oxygen Delivery Nasal Cannula Oxygen Flow Rate 2 Fraction of Inspired Oxygen 11/08/24 22:34 11/09/24 00:00 11/09/24 01:45 Temperature Pulse Rate 93 107 H Respiratory Rate 20 Blood Pressure Pulse Oximetry Oxygen Delivery BiPAP Oxygen Flow Rate Fraction of Inspired Oxygen 11/09/24 01:46 11/09/24 01:51 11/09/24 04:37 Temperature Pulse Rate 103 H 102 H Respiratory Rate 20 Blood Pressure Pulse Oximetry Oxygen Delivery BiPAP Oxygen Flow Rate Fraction of Inspired Oxygen 11/09/24 06:00 11/09/24 08:00 11/09/24 08:45 Temperature 98.3 F Pulse Rate 94 102 H 103 H Respiratory Rate 14 20 Blood Pressure 120/69 Pulse Oximetry 94 99 Oxygen Delivery Nasal Cannula Oxygen Flow Rate 2 Fraction of Inspired Oxygen 28 11/09/24 09:01 11/09/24 09:01 11/09/24 09:11 Temperature Pulse Rate 100 102 H Respiratory Rate 22 H 20 Blood Pressure Pulse Oximetry 99 Oxygen Delivery Nasal Cannula Oxygen Flow Rate 2 Fraction of Inspired Oxygen 28 Intake/Output Intake/Output: Intake & Output 11/06/24 11/07/24 11/08/24 11/09/24 23:59 23:59 23:59 23:59 Intake Total 1380 2580 2150 240 Output Total 1150 1000 1585 1200 Balance 230 1580 565 -960 Meds/Results Medications: Active Medications Generic Name Dose Route Start Last Admin Trade Name Freq PRN Reason Stop Dose Admin Acetaminophen 650 mg 11/05/24 23:56 11/09/24 08:46 Acetaminophen 325 Mg Tablet PO 650 mg Q4H PRN Administration Mild Pain (1-3) or Fever Albuterol/Ipratropium 3 ml 11/06/24 08:00 11/09/24 09:01 Ipratropium 0.5 Mg/Albuterol Sulfate 2.5 Mg Ampul.Neb 3 Ml INHALATION 3 ml Q6HRT ALEKSEY Administration Apixaban 5 mg 11/06/24 09:00 11/09/24 08:45 Apixaban 5 Mg Tablet PO 5 mg Q12HR ALEKSEY Administration Aspirin 81 mg 11/06/24 21:00 11/08/24 21:23 Aspirin 81 Mg Enteric Tablet PO 81 mg HS ALEKSEY Administration Azithromycin 500 mg 11/09/24 21:00 Azithromycin 250 Mg Tablet PO 11/10/24 21:01 QHS ALEKSEY Baclofen 10 mg 11/06/24 21:00 11/08/24 21:23 Baclofen 10 Mg Tablet BY MOUTH 10 mg QHS [facility] Administration Budesonide 0.5 mg 11/06/24 08:00 11/09/24 09:01 Budesonide Respule Neb 0.5 Mg/2 Ml Amp INHALATION 0.5 mg Q12HRT ALEKSEY Administration Bumetanide 0.5 mg 11/06/24 09:00 11/09/24 08:44 Bumetanide 0.5 Mg Tablet BY MOUTH 0.5 mg BID [facility] Administration Cefdinir 300 mg 11/09/24 21:00 Cefdinir 300 Mg Capsule PO 11/13/24 09:01 Q12HR [facility] Dextrose 12.5 gm 11/06/24 00:39 Dextrose 50% 25 Gm/50 Ml Syringe IV PUSH PRN PRN Hypoglycemia Protocol Diclofenac Sodium 1 applic 11/06/24 05:01 Diclofenac Sodium 1% 100 Gm Gel (*Bkc) TOPICAL QID PRN Pain Ferrous Sulfate 325 mg 11/10/24 12:00 Ferrous Sulfate [address] PO DAILY@1200 [facility] Fluconazole 200 mg 11/10/24 09:00 Fluconazole 100 Mg Tablet PO WEEKLY [facility] Fluticasone Propionate 2 spray 11/06/24 09:00 11/09/24 08:47 Fluticasone Propionate 0.05% Na Spr 16 Gm Btl (*Bkc) NASAL 2 spray DAILY [facility] Administration Folic Acid 0.4 mg 11/06/24 09:00 11/09/24 08:45 Folic Acid 0.4 Mg Tablet PO 0.4 mg DAILY [facility] Administration Gabapentin 300 mg 11/06/24 09:00 11/09/24 08:45 Gabapentin 300 Mg Capsule PO 300 mg BID [facility] Administration Glucagon 1 mg 11/06/24 00:39 Glucagon For Inj 1 Mg Vial IM PRN PRN Hypoglycemia Protocol Glucose 15 gm 11/06/24 00:39 Glucose Oral Gel 15 Gm Of Glucse In 37.5 Gm Tube PO PRN PRN Hypoglycemia Protocol Guaifenesin 1,200 mg 11/06/24 09:00 11/09/24 08:44 Guaifenesin 12 Hr 600 Mg Tabcr PO 1,200 mg Q12HR ALEKSE[facility] Administration Hydrocortisone 1 applic 11/06/24 04:20 Hydrocortisone 1% 30 Gm Cream TOPICAL DAILY PRN itching Dextrose 1,000 mls @ 100 mls/hr 11/06/24 00:39 Dextrose 5% 1,000 Ml IVPB PRN PRN Hypoglycemia Protocol Insulin Aspart 3 - 6 units 11/06/24 08:00 11/09/24 08:46 Insulin Aspart (*Bkc) 100 Units/Ml SUB-Q Not Given TIDWM ALEKSEY Protocol Insulin Aspart 1 - 3 units 11/06/24 21:00 11/08/24 21:28 Insulin Aspart (*Bkc) 100 Units/Ml SUB-Q Not Given HS [facility] Protocol Lactobacillus Acidophilus 1 tablet 11/06/24 09:00 11/09/24 08:45 Acidophilus/Bulgaricus Chewable Tablet PO 1 tablet TID ALEKSEY Administration Lidocaine 1 patch 11/06/24 04:36 Lidocaine 5% Patch TRANSDERM DAILY PRN pain Linezolid 600 mg 11/09/24 21:00 Linezolid 600 Mg Tablet PO 11/13/24 21:01 Q12HR ALEKSEY Loratadine 10 mg 11/06/24 09:00 11/09/24 08:45 Loratadine 10 Mg Tablet PO 10 mg QAM [facility]SE[facility] Administration Magnesium Oxide 400 mg 11/09/24 17:00 Magnesium Oxide 400 Mg Tablet PO BID@1200,1700 ALEKSE[facility] Metoprolol Succinate 50 mg 11/06/24 09:00 11/09/24 08:45 Metoprolol Succinate Ext Rel 50 Mg Tabcr PO 50 mg DAILY ALEKSE[facility] Administration Multi-Ingred Cream/Lotion/Oil/Oint 1 applic 11/06/24 09:00 11/09/24 08:48 Eucerin Cream 120 Gm Jar TOPICAL 1 applic DAILY [facility]LEK[facility] Administration Mupirocin 1 applic 11/06/24 09:00 11/09/24 08:47 Mupirocin 2% Oint 22 Gm Tube EACH NARE 11/10/24 21:01 1 applic Q12HR ALEKSEY Administration Pantoprazole Sodium 40 mg 11/06/24 09:00 11/09/24 08:44 Pantoprazole 40 Mg Tablet PO 40 mg Q12HR [facility]LE[facility] Administration Pyridoxine HCl 100 mg 11/06/24 09:00 11/09/24 08:45 Pyridoxine Hcl 50 Mg Tablet PO 100 mg QAM [facility]LEK[facility] Administration Roflumilast 500 mcg 11/06/24 09:00 11/09/24 08:44 Roflumilast 500 Mcg Tablet PO 500 mcg DAILY [facility] Administration Senna/Docusate Sodium 1 tab 11/08/24 21:00 11/08/24 21:23 Senna/Docusate Sodium Tablet PO 1 tab HS ALEKSEY Administration Spironolactone 12.5 mg 11/06/24 09:00 11/09/24 08:45 Spironolactone 12.5 Mg Tablet PO 12.5 mg DAILY [facility] Administration Tamsulosin HCl 0.4 mg 11/06/24 21:00 11/08/24 21:24 Tamsulosin Hcl 0.4 Mg Capsule PO 0.4 mg HS ALEKSEY Administration Triamcinolone Acetonide 1 applic 11/06/24 09:00 11/09/24 08:48 Triamcinolone Acet 0.1% Cream 15 Gm Tube TOPICAL 1 applic DAILY ALEKSE[facility] Administration Vitamin D 25 mcg 11/06/24 21:00 11/08/24 21:24 Cholecalciferol (Vitamin D3) 25 Mcg (1,000 Units) Tablet PO 25 mcg HS ALEKSEY Administration Radiology Results: ITS Impressions Chest X-Ray 11/05/24 20:15 IMPRESSION: Pulmonary opacities may represent edema, respiratory bronchiolitis, or atypical infection. Small left pleural effusion versus chronic pleural blunting. Labs Labs: Laboratory Results - last 24 hr 11/06/24 11/08/24 11/08/24 05:30 11:35 16:40 WBC RBC Hgb Hct MCV MCH MCHC RDW Plt Count MPV Immature Gran % (Auto) Neut % (Auto) Lymph % (Auto) Dickinson % (Auto) Eos % (Auto) Baso % (Auto) Lymph # (Auto) Dickinson # (Auto) Eos # (Auto) Baso # (Auto) Abs Immat Gran (auto) Absolute Neuts (auto) Absolute Nucleated RBC Nucleated RBC % Sodium Potassium Chloride Carbon Dioxide Anion Gap BUN Creatinine Estim Creat Clear Calc Estimated GFR Glucose POC Capillary Glucose 162 H 120 H Calcium Total Bilirubin AST ALT Alkaline Phosphatase Total Protein Albumin Ur L.pneumophila Ag Not detected Urine Pneumococcal Ag Not detected 11/08/24 11/09/24 11/09/24 19:35 05:49 05:49 WBC 10.4 H RBC 3.75 L Hgb 11.6 L Hct 37.5 L MCV 100.0 MCH 30.9 MCHC 30.9 L RDW 14.3 Plt Count 206 MPV 12.6 H Immature Gran % (Auto) 6.0 H Neut % (Auto) 67.0 Lymph % (Auto) 10.3 L Dickinson % (Auto) 11.7 H Eos % (Auto) 4.0 Baso % (Auto) 1.0 Lymph # (Auto) 1.07 Dickinson # (Auto) 1.2 H Eos # (Auto) 0.4 H Baso # (Auto) 0.1 Abs Immat Gran (auto) 0.62 H Absolute Neuts (auto) 7.0 H Absolute Nucleated RBC 0.000 Nucleated RBC % 0.0 Sodium 136 L Potassium 4.1 Chloride 102 Carbon Dioxide 28 Anion Gap 6 BUN 41 H Creatinine 1.49 H 1.44 H Estim Creat Clear Calc 48 Estimated GFR Glucose POC Capillary Glucose 179 H Calcium Total Bilirubin AST ALT Alkaline Phosphatase Total Protein Albumin Ur L.pneumophila Ag Urine Pneumococcal Ag 11/09/24 11/09/24 11/09/24 05:49 05:49 06:47 WBC RBC Hgb Hct MCV MCH MCHC RDW Plt Count MPV Immature Gran % (Auto) Neut % (Auto) Lymph % (Auto) Dickinson % (Auto) Eos % (Auto) Baso % (Auto) Lymph # (Auto) Dickinson # (Auto) Eos # (Auto) Baso # (Auto) Abs Immat Gran (auto) Absolute Neuts (auto) Absolute Nucleated RBC Nucleated RBC % Sodium Potassium Chloride Carbon Dioxide Anion Gap BUN Creatinine Estim Creat Clear Calc 50 Estimated GFR 46 L 48 L Glucose 118 H POC Capillary Glucose 117 H Calcium 9.1 Total Bilirubin 0.5 AST 54 ALT 38 Alkaline Phosphatase 165 H Total Protein 6.0 L Albumin 3.2 L Ur L.pneumophila Ag Urine Pneumococcal Ag 11/09/24 08:45 WBC RBC Hgb Hct MCV MCH MCHC RDW Plt Count MPV Immature Gran % (Auto) Neut % (Auto) Lymph % (Auto) Dickinson % (Auto) Eos % (Auto) Baso % (Auto) Lymph # (Auto) Dickinson # (Auto) Eos # (Auto) Baso # (Auto) Abs Immat Gran (auto) Absolute Neuts (auto) Absolute Nucleated RBC Nucleated RBC % Sodium Potassium Chloride Carbon Dioxide Anion Gap BUN Creatinine Estim Creat Clear Calc Estimated GFR Glucose POC Capillary Glucose 120 H Calcium Total Bilirubin AST ALT Alkaline Phosphatase Total Protein Albumin Ur L.pneumophila Ag Urine Pneumococcal Ag Quality VTE Prophylaxis VTE prophylaxis: pharmacologic ordered (on apixaban)
[2024-11-09 11:53] LABS: Glucose Point of Care 138 mg/dl (65-105)
[2024-11-09 16:32] LABS: Glucose Point of Care 121 mg/dl (65-105)
[2024-11-09 17:38] LABS: Mycoplasma IgM Antibody Titer 103 U/mL
--- NOTE | 2024-11-09 19:35 | PC.NURSE ---
Notified respiratory regarding patient request for earlier treatment
[2024-11-09] MEDS: TAMSULOSIN HCL 0.4 MG CAPSULE PO (20:57)
[2024-11-09] MEDS: ASPIRIN 81 MG ENTERIC TABLET PO (20:57)
[2024-11-09] MEDS: BACLOFEN 10 MG TABLET BY MOUTH (20:58)
[2024-11-09] MEDS: AZITHROMYCIN 250 MG TABLET 500 MG PO (20:58)
[2024-11-09] MEDS: CEFDINIR 300 MG CAPSULE PO (20:58)
[2024-11-09] MEDS: CHOLECALCIFEROL (VITAMIN D3) 25 MCG (1,000 UNITS) TABLET PO (20:58)
[2024-11-09] MEDS: LINEZOLID 600 MG TABLET PO (20:59)
[2024-11-09] MEDS: SENNA/DOCUSATE SODIUM TABLET 1 TAB PO (20:59)
[2024-11-10] VITALS (18 sets, daily range): BP systolic 107–127; BP diastolic 69–82; PULSE 76–100; RESP 18–20; TEMP 36.6–37; O2SAT 96–100
[2024-11-10] MEDS: IPRATROPIUM 0.5 MG/ALBUTEROL SULFATE 2.5 MG AMPUL.NEB 3 ML INHALATION ×4 (01:54→18:03)
[2024-11-10 05:36] LABS: Basophils Absolute Auto 0.2 K/mm3 (0.0-0.1); Eosinophils Absolute Auto 0.6 K/mm3 (0-0.3); Eosinophils Percent Auto 5.4 % (0-4.4); Hematocrit 38.4 % (42.0-52.0); Hemoglobin 11.9 g/dL (14.0-18.0); Immature Granulocyte Absolute 0.75 K/mm3 (0.00-0.031); Immature Granulocyte Percent A 7.3 % (0-0.5); Lymphocytes Absolute Auto 1.25 K/mm3 (0.9-3.2); Lymphocytes Percent Auto 12.2 % (18.3-44.2); Mean Corpuscular Hemoglobin 30.7 pg (26-34); Mean Platelet Volume 11.8 fl (7.4-10.4); Monocytes Absolute Auto 1.2 K/mm3 (0.1-0.6); Monocytes Percent Auto 11.2 % (2.6-8.5); Neutrophils Absolute Auto 6.4 K/mm3 (1.3-6.7); Neutrophils Percent Auto 61.9 % (45.5-73.1); Platelet Count Result 209 k/mm3 (150-375); Red Blood Count 3.88 M/mm3 (4.6-6.20); Red Cell Distribution Width 13.9 % (11.5-14.5); White Blood Count 10.3 K/mm3 (4.5-10.0)
[2024-11-10 05:59] LABS: Glucose Point of Care 199 mg/dl (65-105)
[2024-11-10 06:11] LABS: Alanine Aminotransferase 40 U/L (6-50); Albumin Level 3.4 g/dL (3.5-5.1); Alkaline Phosphatase 182 U/L (38-126); Anion Gap 5 mmol/L (4-12); Aspartate Amino Transferase 41 U/L (17-59); Bilirubin,Total 0.7 mg/dL (0.2-1.3); Blood Urea Nitrogen 35 mg/dL (9-20); Calcium 9.5 mg/dL (8.4-10.2); Carbon Dioxide 30 mmol/L (22-30); Chloride 100 mmol/L (98-107); Estimated CRCL calculation 48 ml/min; Estimated Glomerular Filt Rate 46; Glucose 117 mg/dL (65-110); Potassium 4.2 mmol/L (3.4-5.0); Sodium 135 mmol/L (137-145); Total Protein 6.4 g/dL (6.3-8.2)
[2024-11-10] MEDS: BUDESONIDE RESPULE NEB 0.5 MG/2 ML AMP INHALATION ×2 (07:39→18:03)
[2024-11-10] MEDS: guaiFENesin 12 HR 600 MG TABCR 1200 MG PO ×2 (08:23→20:54)
[2024-11-10] MEDS: GABAPENTIN 300 MG CAPSULE PO ×2 (08:23→16:41)
[2024-11-10] MEDS: LIDOCAINE 5% PATCH 1 PATCH TRANSDERM (08:23)
[2024-11-10] MEDS: LORATADINE 10 MG TABLET PO (08:23)
[2024-11-10] MEDS: LINEZOLID 600 MG TABLET PO ×2 (08:24→20:53)
[2024-11-10] MEDS: CEFDINIR 300 MG CAPSULE PO ×2 (08:24→20:54)
[2024-11-10] MEDS: PANTOPRAZOLE 40 MG TABLET PO ×2 (08:24→20:54)
[2024-11-10] MEDS: FLUCONAZOLE 100 MG TABLET 200 MG PO (08:24)
[2024-11-10] MEDS: FOLIC ACID 0.4 MG TABLET PO (08:24)
[2024-11-10] MEDS: ROFLUMILAST 500 MCG TABLET PO (08:24)
[2024-11-10] MEDS: PYRIDOXINE HCL 50 MG TABLET 100 MG PO (08:24)
[2024-11-10] MEDS: METOPROLOL SUCCINATE EXT REL 50 MG TABCR PO (08:24)
[2024-11-10] MEDS: ACIDOPHILUS/BULGARICUS CHEWABLE TABLET 1 TABLET PO ×3 (08:24→16:41)
[2024-11-10] MEDS: BUMETANIDE 0.5 MG TABLET BY MOUTH ×2 (08:24→16:41)
[2024-11-10] MEDS: APIXABAN 5 MG TABLET PO ×2 (08:24→20:54)
[2024-11-10] MEDS: SPIRONOLACTONE 12.5 MG TABLET PO (08:24)
[2024-11-10] MEDS: EUCERIN CREAM 120 GM JAR 1 APPLIC TOPICAL (08:26)
[2024-11-10] MEDS: TRIAMCINOLONE ACET 0.1% CREAM 15 GM TUBE 1 APPLIC TOPICAL (08:26)
[2024-11-10] MEDS: FLUTICASONE PROPIONATE 0.05% NA SPR 16 GM BTL (*BKC) 2 SPRAY NASAL (08:26)
[2024-11-10] MEDS: MUPIROCIN 2% OINT 22 GM TUBE 1 APPLIC EACH NARE ×2 (08:26→20:56)
[2024-11-10] MEDS: DICLOFENAC SODIUM 1% 100 GM GEL (*BKC) 1 APPLIC TOPICAL (08:26)
[2024-11-10 08:56] LABS: Glucose Point of Care 116 mg/dl (65-105)
--- NOTE | 2024-11-10 12:07 | P.PNIM_ITS ---
Progress Note: A&P Assessment and Plan (1) Acute exacerbation of chronic obstructive pulmonary disease: Code(s): J44.1 - Chronic obstructive pulmonary disease with (acute) exacerbation Status: Acute Assessment and Plan: * Monitor vital signs, I&Os, neuro status and patient is a fall risk * Monitor serum electrolytes, cultures and CBC * Monitor Oxygen saturation, Oxygen via NC; at baseline * Sputum culture showed contaminated, repeat * Azithromycin 500mg * Continue Duonebz q6H * Patient continues to endorse some shortness of breath although it improves with duonebs * Oral Cefdinir, Linezolid (2) Left leg cellulitis: Code(s): L03.116 - Cellulitis of left lower limb Status: Acute Assessment and Plan: * Monitor vital signs, I&Os, neuro status and patient is a fall risk * Monitor serum electrolytes, CBC, cultures, WBC and temp curve * Gentle IV fluids resuscitation * Ceftriaxone discontinued (3) Pneumonia: Qualifiers: Laterality: bilateral Lung location: unspecified part of lung Pneumonia type: due to unspecified organism Qualified Code(s): J18.9 - Pneumonia, unspecified organism Code(s): J18.9 - Pneumonia, unspecified organism Status: Acute Assessment and Plan: * CXR: Pulmonary opacities may represent edema, respiratory bronchiolitis, or atypical infection. Small left pleural effusion versus chronic pleural blunting. * started on CAP tx: azithromycin & ceftriaxone * Viral PCR: negative for Flu/COVID/RSV * Ordered legionella, mycoplasma and pneumococcal * Monitor vital signs, I&Os, neuro status and patient is a fall risk * Follow WBC, serum electrolytes, temperature curves and cultures * Sputum culture showed contaminated, repeat * Gentle IV fluid resuscitation * Switch to oral cefdinir, linezolid (4) MRSA nasal colonization: Code(s): Z22.322 - Carrier or suspected carrier of Methicillin resistant Staphylococcus aureus Status: Acute Assessment and Plan: * Nasal MRSA + * Initiate IV Vancomycin * Monitor BCs-preliminary results showed no growth * Switch to Cefdinir/Linezolid (5) Chronic hypoxic respiratory failure, on home oxygen therapy: Code(s): J96.11 - Chronic respiratory failure with hypoxia; Z99.81 - Dependence on supplemental oxygen Status: Acute Assessment and Plan: * Symptoms: SOB * SpO2: 98% * Oxygen supplementation: 3L NC * EKG: Afib w/ ventricular premature complex * Chest XR: Pulmonary opacities may represent edema, respiratory bronchiolitis, or atypical infection. Small left pleural effusion versus chronic pleural blunting. * Repeat CXR on 11/09: Cardiomegaly with interstitial edema. (6) Obstructive sleep apnea treated with BiPAP: Code(s): G47.33 - Obstructive sleep apnea (adult) (pediatric) Status: Chronic Assessment and Plan: * BiPAP will be provided for the patient to use while hospitalized (7) Chronic diastolic heart failure: Code(s): I50.32 - Chronic diastolic (congestive) heart failure Status: Chronic Assessment and Plan: * Echo 11/04/23: * LVH with overall good systolic function, hypokinesia is noted of the mid to apical septum and apex. * Sclerotic aortic valve which exhibits good leaflet separation. * Significant biatrial dilation. * Atrial fibrillation * Given 0.5mg Bumex given LE edema (although pt states this is baseline) * Monitor I/O and daily weight (8) Atrial fibrillation: Qualifiers: Atrial fibrillation type: unspecified Qualified Code(s): I48.91 - Unspecified atrial fibrillation Code(s): I48.91 - Unspecified atrial fibrillation Status: Chronic Assessment and Plan: * Rate controlled - Metoprolol * Continue Apixiban (dvt prophylaxis) (9) Chronic anticoagulation: Code(s): Z79.01 - alf (current) use of anticoagulants Status: Chronic Assessment and Plan: * Continue Apixiban (10) Chronic kidney disease, stage 3: Code(s): N18.30 - Chronic kidney disease, stage 3 unspecified Status: Acute Assessment and Plan: * Renal function is stable on review of previous labs. * Cr 1.76, GFR 38, BUN 47 (baseline appears to be around 1.5) * 11/09: Creatinine 1.44, down from 1.76 Subjective Date/time seen: 11/10/24 12:07 Interval history: 73-year-old male with pmhx of chronic hypoxic respiratory failure on home oxygen, HFpEF, CAD, HTN, afib on chronic anticoagulation, [place] on BiPAP, ulcerative colitis, cirrhosis, CKD, chronic anemia, BPH, diet-controlled diabetes, MRSA bacteremia, and other comorbidities who presents with SOB. 11/09/2024 Patient sitting comfortably at bedside at time examination. Denies any chest pain, n/v, abdominal pain at this time. Some mild shortness of breath at rest, worse with exertion. Working with PT/OT and they recommended SNF placement upon discharge. Will work on this over the weekend with care coordination. Otherwise pt is at his O2 supplementation baseline. Continue treating pneumonia. Pt otherwise feels much better today and was looking forward to going home but will need to work on SNF placement, pt okay with this. Review of Systems Review of Systems: 12 systems were reviewed and are negativ e except for as per HPI. Exam Narrative: General: Moderately ill-appearing male sitting up in bed in no acute distress. Weight: 107.7 kg. BMI: 33.1. HEENT: PERRL, EOMI. Sclera anicteric. Conjunctiva mildly injected. Tacky mucous membranes. Neck: Supple. L no JVD or lymphadenopathy. Respiratory: Appears in no respiratory distress. Scattered rhonchi in the upper lungs which improved with cough. Lung sounds are otherwise a bit coarse and diminished with expiratory wheezing, although there is marked improvement since yesterday. Cardiovascular: Irregularly regular rate rhythm. Soft murmur at the upper sternal border. Gastrointestinal: Abdomen is soft, obese, nontender, and nondistended with posi tive bowel sounds. Skin: Warm and dry. Chronic skin changes of the lower legs bilaterally. The left lower leg is erythematous and warm, concerning for cellulitis. Extremities: No cyanosis or clubbing. Bilateral lower extremity edema. Neurological: Alert and oriented. Cranial nerves 2-12 are grossly intact. No gross focal deficits to casual conversation. Psychiatric: Pleasant and cooperative with normal mood and affect. Objective Data Vital Signs Vital Signs: Vital Signs - 24 hr 11/09/24 13:32 11/09/24 13:32 11/09/24 13:39 Temperature Pulse Rate 97 100 Respiratory Rate 20 20 Blood Pressure Pulse Oximetry 97 Oxygen Delivery Nasal Cannula Oxygen Flow Rate 2 Fraction of Inspired Oxygen 28 11/09/24 14:00 11/09/24 16:00 11/09/24 19:44 Temperature 98.1 F Pulse Rate 99 103 H 90 Respiratory Rate 20 20 Blood Pressure 118/68 Pulse Oximetry 98 Oxygen Delivery Oxygen Flow Rate Fraction of Inspired Oxygen 11/09/24 19:48 11/09/24 19:56 11/09/24 20:50 Temperature Pulse Rate 91 Respiratory Rate 20 Blood Pressure Pulse Oximetry 100 98 Oxygen Delivery Nasal Cannula Nasal Cannula Oxygen Flow Rate 4 2 Fraction of Inspired Oxygen 36 11/09/24 20:50 11/09/24 20:56 11/10/24 00:00 Temperature 98.3 F Pulse Rate 96 105 H 91 Respiratory Rate 18 Blood Pressure 119/67 Pulse Oximetry 97 Oxygen Delivery Oxygen Flow Rate Fraction of Inspired Oxygen 11/10/24 00:30 11/10/24 01:55 11/10/24 02:01 Temperature Pulse Rate 85 92 Respiratory Rate 20 20 Blood Pressure Pulse Oximetry Oxygen Delivery BiPAP Oxygen Flow Rate Fraction of Inspired Oxygen 11/10/24 04:48 11/10/24 06:00 11/10/24 07:35 Temperature 98 F Pulse Rate 100 100 90 Respiratory Rate 18 20 Blood Pressure 127/82 Pulse Oximetry 100 Oxygen Delivery Oxygen Flow Rate Fraction of Inspired Oxygen 11/10/24 07:41 11/10/24 07:47 11/10/24 09:37 Temperature Pulse Rate 88 Respiratory Rate 20 Blood Pressure Pulse Oximetry 99 Oxygen Delivery Nasal Cannula Nasal Cannula Oxygen Flow Rate 2 3 Fraction of Inspired Oxygen 28 11/10/24 10:15 Temperature Pulse Rate Respiratory Rate Blood Pressure Pulse Oximetry Oxygen Delivery Nasal Cannula Oxygen Flow Rate 3 Fraction of Inspired Oxygen Intake/Output Intake/Output: Intake & Output 11/07/24 11/08/24 11/09/24 11/10/24 23:59 23:59 23:59 23:59 Intake Total 2580 2150 960 930 Output Total 1000 1585 1760 500 Balance 1580 565 -800 430 Meds/Results Medications: Active Medications Generic Name Dose Route Start Last Admin Trade Name Freq PRN Reason Stop Dose Admin Acetaminophen 650 mg 11/05/24 23:56 11/09/24 08:46 Acetaminophen 325 Mg Tablet PO 650 mg Q4H PRN Administration Mild Pain (1-3) or Fever Albuterol/Ipratropium 3 ml 11/06/24 08:00 11/10/24 07:39 Ipratropium 0.5 Mg/Albuterol Sulfate 2.5 Mg Ampul.Neb 3 Ml INHALATION 3 ml Q6HRT ALEKSEY Administration Apixaban 5 mg 11/06/24 09:00 11/10/24 08:24 Apixaban 5 Mg Tablet PO 5 mg Q12HR ALEKSEY Administration Aspirin 81 mg 11/06/24 21:00 11/09/24 20:57 Aspirin 81 Mg Enteric Tablet PO 81 mg HS ALEKSEY Administration Azithromycin 500 mg 11/09/24 21:00 11/09/24 20:58 Azithromycin 250 Mg Tablet PO 11/10/24 21:01 500 mg QHS ALEKSEY Administration Baclofen 10 mg 11/06/24 21:00 11/09/24 20:58 Baclofen 10 Mg Tablet BY MOUTH 10 mg QHS ALEKSEY Administration Benzocaine 1 lozenge 11/09/24 22:00 Benzocaine/Menthol (*Bkc) 18 Ea Lozenge PO PRN PRN Sore Throat Budesonide 0.5 mg 11/06/24 08:00 11/10/24 07:39 Budesonide Respule Neb 0.5 Mg/2 Ml Amp INHALATION 0.5 mg Q12HRT ALEKSEY Administration Bumetanide 0.5 mg 11/06/24 09:00 11/10/24 08:24 Bumetanide 0.5 Mg Tablet BY MOUTH 0.5 mg BID ALEKSEY Administration Cefdinir 300 mg 11/09/24 21:00 11/10/24 08:24 Cefdinir 300 Mg Capsule PO 11/13/24 09:01 300 mg Q12HR ALEKSEY Administration Dextrose 12.5 gm 11/06/24 00:39 Dextrose 50% 25 Gm/50 Ml Syringe IV PUSH PRN PRN Hypoglycemia Protocol Diclofenac Sodium 1 applic 11/06/24 05:01 11/10/24 08:26 Diclofenac Sodium 1% 100 Gm Gel (*Bkc) TOPICAL 1 applic QID PRN Administration Pain Ferrous Sulfate 325 mg 11/10/24 12:00 Ferrous Sulfate [address] PO DAILY@1200 [facility] Fluconazole 200 mg 11/10/24 09:00 11/10/24 08:24 Fluconazole 100 Mg Tablet PO 200 mg WEEKLY ALEKSEY Administration Fluticasone Propionate 2 spray 11/06/24 09:00 11/10/24 08:26 Fluticasone Propionate 0.05% Na Spr 16 Gm Btl (*Bkc) NASAL 2 spray DAILY ALEKSEY Administration Folic Acid 0.4 mg 11/06/24 09:00 11/10/24 08:24 Folic Acid 0.4 Mg Tablet PO 0.4 mg DAILY ALEKSEY Administration Gabapentin 300 mg 11/06/24 09:00 11/10/24 08:23 Gabapentin 300 Mg Capsule PO 300 mg BID ALEKSEY Administration Glucagon 1 mg 11/06/24 00:39 Glucagon For Inj 1 Mg Vial IM PRN PRN Hypoglycemia Protocol Glucose 15 gm 11/06/24 00:39 Glucose Oral Gel 15 Gm Of Glucse In 37.5 Gm Tube PO PRN PRN Hypoglycemia Protocol Guaifenesin 1,200 mg 11/06/24 09:00 11/10/24 08:23 Guaifenesin 12 Hr 600 Mg Tabcr PO 1,200 mg Q12HR ALEKSEY Administration Hydrocortisone 1 applic 11/06/24 04:20 Hydrocortisone 1% 30 Gm Cream TOPICAL DAILY PRN itching Dextrose 1,000 mls @ 100 mls/hr 11/06/24 00:39 Dextrose 5% 1,000 Ml IVPB PRN PRN Hypoglycemia Protocol Insulin Aspart 3 - 6 units 11/06/24 08:00 11/10/24 08:25 Insulin Aspart (*Bkc) 100 Units/Ml SUB-Q Not Given TIDWM ALEKSEY Protocol Insulin Aspart 1 - 3 units 11/06/24 21:00 11/09/24 21:00 Insulin Aspart (*Bkc) 100 Units/Ml SUB-Q Not Given HS ALEKSEY Protocol Lactobacillus Acidophilus 1 tablet 11/06/24 09:00 11/10/24 08:24 Acidophilus/Bulgaricus Chewable Tablet PO 1 tablet TID ALEKSEY Administration Lidocaine 1 patch 11/06/24 04:36 11/10/24 08:23 Lidocaine 5% Patch TRANSDERM 1 patch DAILY PRN Administration pain Linezolid 600 mg 11/09/24 21:00 11/10/24 08:24 Linezolid 600 Mg Tablet PO 11/13/24 21:01 600 mg Q12HR ALEKSEY Administration Loratadine 10 mg 11/06/24 09:00 11/10/24 08:23 Loratadine 10 Mg Tablet PO 10 mg QAM ALEKSEY Administration Magnesium Oxide 400 mg 11/09/24 17:00 11/09/24 16:25 Magnesium Oxide 400 Mg Tablet PO 400 mg BID@1200,1700 ALEKSEY Administration Metoprolol Succinate 50 mg 11/06/24 09:00 11/10/24 08:24 Metoprolol Succinate Ext Rel 50 Mg Tabcr PO 50 mg DAILY ALEKSEY Administration Multi-Ingred Cream/Lotion/Oil/Oint 1 applic 11/06/24 09:00 11/10/24 08:26 Eucerin Cream 120 Gm Jar TOPICAL 1 applic DAILY ALEKSEY Administration Mupirocin 1 applic 11/06/24 09:00 11/10/24 08:26 Mupirocin 2% Oint 22 Gm Tube EACH NARE 11/10/24 21:01 1 applic Q12HR ALEKSEY Administration Pantoprazole Sodium 40 mg 11/06/24 09:00 11/10/24 08:24 Pantoprazole 40 Mg Tablet PO 40 mg Q12HR ALEKSEY Administration Pyridoxine HCl 100 mg 11/06/24 09:00 11/10/24 08:24 Pyridoxine Hcl 50 Mg Tablet PO 100 mg QAM ALEKSEY Administration Roflumilast 500 mcg 11/06/24 09:00 11/10/24 08:24 Roflumilast 500 Mcg Tablet PO 500 mcg DAILY ALEKSEY Administration Senna/Docusate Sodium 1 tab 11/08/24 21:00 11/09/24 20:59 Senna/Docusate Sodium Tablet PO 1 tab HS ALEKSEY Administration Spironolactone 12.5 mg 11/06/24 09:00 11/10/24 08:24 Spironolactone 12.5 Mg Tablet PO 12.5 mg DAILY ALEKSEY Administration Tamsulosin HCl 0.4 mg 11/06/24 21:00 11/09/24 20:57 Tamsulosin Hcl 0.4 Mg Capsule PO 0.4 mg HS [facility] Administration Triamcinolone Acetonide 1 applic 11/06/24 09:00 11/10/24 08:26 Triamcinolone Acet 0.1% Cream 15 Gm Tube TOPICAL 1 applic DAILY ALEKSEY Administration Vitamin D 25 mcg 11/06/24 21:00 11/09/24 20:58 Cholecalciferol (Vitamin D3) 25 Mcg (1,000 Units) Tablet PO 25 mcg HS ALEKSEY Administration Radiology Results: ITS Impressions Chest X-Ray 11/09/24 15:31 Impression: 1: Cardiomegaly with interstitial edema. Labs Labs: Laboratory Results - last 24 hr 11/06/24 11/09/24 11/09/24 01:31 16:30 20:59 WBC RBC Hgb Hct MCV MCH MCHC RDW Plt Count MPV Immature Gran % (Auto) Neut % (Auto) Lymph % (Auto) [place] % (Auto) Eos % (Auto) Baso % (Auto) Lymph # (Auto) [place] # (Auto) Eos # (Auto) Baso # (Auto) Abs Immat Gran (auto) Absolute Neuts (auto) Absolute Nucleated RBC Nucleated RBC % Sodium Potassium Chloride Carbon Dioxide Anion Gap BUN Creatinine Estim Creat Clear Calc Estimated GFR Glucose POC Capillary Glucose 121 H 199 H Calcium Total Bilirubin AST ALT Alkaline Phosphatase Total Protein Albumin Mycoplasma pneumon IgM 103 11/10/24 11/10/24 05:27 08:16 WBC 10.3 H RBC 3.88 L Hgb 11.9 L Hct 38.4 L MCV 99.0 MCH 30.7 MCHC 31.0 L RDW 13.9 Plt Count 209 MPV 11.8 H Immature Gran % (Auto) 7.3 H Neut % (Auto) 61.9 Lymph % (Auto) 12.2 L [place] % (Auto) 11.2 H Eos % (Auto) 5.4 H Baso % (Auto) 2.0 H Lymph # (Auto) 1.25 [place] # (Auto) 1.2 H Eos # (Auto) 0.6 H Baso # (Auto) 0.2 H Abs Immat Gran (auto) 0.75 H Absolute Neuts (auto) 6.4 Absolute Nucleated RBC 0.000 Nucleated RBC % 0.0 Sodium 135 L Potassium 4.2 Chloride 100 Carbon Dioxide 30 Anion Gap 5 BUN 35 H Creatinine 1.48 H Estim Creat Clear Calc 48 Estimated GFR 46 L Glucose 117 H POC Capillary Glucose 116 H Calcium 9.5 Total Bilirubin 0.7 AST 41 ALT 40 Alkaline Phosphatase 182 H Total Protein 6.4 Albumin 3.4 L Mycoplasma pneumon IgM Quality VTE Prophylaxis VTE prophylaxis: pharmacologic ordered (on apixaban)
[2024-11-10 12:37] LABS: Glucose Point of Care 195 mg/dl (65-105)
[2024-11-10] MEDS: FERROUS SULFATE 325 MG TABLET DR PO (13:46)
[2024-11-10] MEDS: MAGNESIUM OXIDE 400 MG TABLET PO ×2 (13:47→16:41)
[2024-11-10 17:25] LABS: Glucose Point of Care 108 mg/dl (65-105)
[2024-11-10] MEDS: ASPIRIN 81 MG ENTERIC TABLET PO (20:53)
[2024-11-10] MEDS: SENNA/DOCUSATE SODIUM TABLET 1 TAB PO (20:53)
[2024-11-10] MEDS: BACLOFEN 10 MG TABLET BY MOUTH (20:53)
[2024-11-10] MEDS: TAMSULOSIN HCL 0.4 MG CAPSULE PO (20:53)
[2024-11-10] MEDS: AZITHROMYCIN 250 MG TABLET 500 MG PO (20:54)
[2024-11-10] MEDS: CHOLECALCIFEROL (VITAMIN D3) 25 MCG (1,000 UNITS) TABLET PO (20:54)
[2024-11-10 21:51] LABS: Glucose Point of Care 160 mg/dl (65-105)
[2024-11-10] MEDS: ACETAMINOPHEN 325 MG TABLET 650 MG PO (23:28)
[2024-11-11] VITALS (18 sets, daily range): BP systolic 104–124; BP diastolic 63–83; PULSE 83–102; RESP 18–20; TEMP 36.6–36.8; O2SAT 94–100
[2024-11-11] MEDS: IPRATROPIUM 0.5 MG/ALBUTEROL SULFATE 2.5 MG AMPUL.NEB 3 ML INHALATION ×4 (02:16→19:36)
[2024-11-11 05:56] LABS: Basophils Absolute Auto 0.1 K/mm3 (0.0-0.1); Basophils Percent Auto 1.1 % (0.2-1.2); Eosinophils Absolute Auto 0.6 K/mm3 (0-0.3); Eosinophils Percent Auto 5.1 % (0-4.4); Hematocrit 38.3 % (42.0-52.0); Hemoglobin 11.5 g/dL (14.0-18.0); Immature Granulocyte Absolute 0.76 K/mm3 (0.00-0.031); Immature Granulocyte Percent A 6.9 % (0-0.5); Lymphocytes Percent Auto 10.9 % (18.3-44.2); Mean Corpuscular Hemoglobin 29.9 pg (26-34); Mean Corpuscular Volume 99.5 fl (80-100); Mean Platelet Volume 12.2 fl (7.4-10.4); Monocytes Absolute Auto 1.2 K/mm3 (0.1-0.6); Monocytes Percent Auto 11.1 % (2.6-8.5); Neutrophils Absolute Auto 7.1 K/mm3 (1.3-6.7); Neutrophils Percent Auto 64.9 % (45.5-73.1); Platelet Count Result 202 k/mm3 (150-375); Red Blood Count 3.85 M/mm3 (4.6-6.20)
[2024-11-11 06:17] LABS: Alanine Aminotransferase 34 U/L (6-50); Albumin Level 3.3 g/dL (3.5-5.1); Alkaline Phosphatase 161 U/L (38-126); Anion Gap 4 mmol/L (4-12); Aspartate Amino Transferase 35 U/L (17-59); Bilirubin,Total 0.6 mg/dL (0.2-1.3); Blood Urea Nitrogen 37 mg/dL (9-20); Calcium 9.1 mg/dL (8.4-10.2); Carbon Dioxide 32 mmol/L (22-30); Chloride 99 mmol/L (98-107); Estimated CRCL calculation 45 ml/min; Estimated Glomerular Filt Rate 43; Glucose 112 mg/dL (65-110); Sodium 135 mmol/L (137-145); Total Protein 6.2 g/dL (6.3-8.2)
[2024-11-11 06:30] LABS: Atypical Lymphocytes Present; Platelet Estimate Adequate (Adequate); Schistocytes None Seen
[2024-11-11] MEDS: BUDESONIDE RESPULE NEB 0.5 MG/2 ML AMP INHALATION ×2 (07:49→19:36)
[2024-11-11] MEDS: GABAPENTIN 300 MG CAPSULE PO ×2 (09:03→17:29)
[2024-11-11] MEDS: guaiFENesin 12 HR 600 MG TABCR 1200 MG PO ×2 (09:03→20:08)
[2024-11-11] MEDS: CEFDINIR 300 MG CAPSULE PO ×2 (09:03→20:08)
[2024-11-11] MEDS: APIXABAN 5 MG TABLET PO ×2 (09:04→20:08)
[2024-11-11] MEDS: FOLIC ACID 0.4 MG TABLET PO (09:04)
[2024-11-11] MEDS: PYRIDOXINE HCL 50 MG TABLET 100 MG PO (09:04)
[2024-11-11] MEDS: ROFLUMILAST 500 MCG TABLET PO (09:04)
[2024-11-11] MEDS: LORATADINE 10 MG TABLET PO (09:04)
[2024-11-11] MEDS: LINEZOLID 600 MG TABLET PO ×2 (09:04→20:07)
[2024-11-11] MEDS: PANTOPRAZOLE 40 MG TABLET PO ×2 (09:04→20:09)
[2024-11-11] MEDS: BUMETANIDE 0.5 MG TABLET BY MOUTH ×2 (09:04→17:29)
[2024-11-11] MEDS: SPIRONOLACTONE 12.5 MG TABLET PO (09:04)
[2024-11-11] MEDS: EUCERIN CREAM 120 GM JAR 1 APPLIC TOPICAL (09:05)
[2024-11-11] MEDS: ACIDOPHILUS/BULGARICUS CHEWABLE TABLET 1 TABLET PO ×3 (09:05→17:29)
[2024-11-11] MEDS: FLUTICASONE PROPIONATE 0.05% NA SPR 16 GM BTL (*BKC) 2 SPRAY NASAL (09:05)
[2024-11-11] MEDS: TRIAMCINOLONE ACET 0.1% CREAM 15 GM TUBE 1 APPLIC TOPICAL (09:06)
[2024-11-11] MEDS: FERROUS SULFATE 325 MG TABLET DR PO (12:32)
[2024-11-11] MEDS: METOPROLOL SUCCINATE EXT REL 50 MG TABCR PO (12:33)
[2024-11-11] MEDS: MAGNESIUM OXIDE 400 MG TABLET PO ×2 (12:33→17:29)
--- NOTE | 2024-11-11 12:46 | P.PNIM_ITS ---
Progress Note: A&P Assessment and Plan (1) Acute exacerbation of chronic obstructive pulmonary disease: Code(s): J44.1 - Chronic obstructive pulmonary disease with (acute) exacerbation Status: Acute Assessment and Plan: * Monitor vital signs, I&Os, neuro status and patient is a fall risk * Monitor serum electrolytes, cultures and CBC * Monitor Oxygen saturation, Oxygen via NC; at baseline * Sputum culture showed contaminated, repeat * Azithromycin 500mg * Continue Duonebz q6H * Patient continues to endorse some shortness of breath although it improves with duonebs * Oral Cefdinir, Linezolid * Overall symptoms greatly improved since yesterday, lung herrera clear to auscultation (2) Left leg cellulitis: Code(s): L03.116 - Cellulitis of left lower limb Status: Acute Assessment and Plan: * Monitor vital signs, I&Os, neuro status and patient is a fall risk * Monitor serum electrolytes, CBC, cultures, WBC and temp curve * Gentle IV fluids resuscitation * Ceftriaxone discontinued * Improved (3) Pneumonia: Qualifiers: Laterality: bilateral Lung location: unspecified part of lung Pneumonia type: due to unspecified organism Qualified Code(s): J18.9 - Pneumonia, unspecified organism Code(s): J18.9 - Pneumonia, unspecified organism Status: Acute Assessment and Plan: * CXR: Pulmonary opacities may represent edema, respiratory bronchiolitis, or atypical infection. Small left pleural effusion versus chronic pleural blunting. * started on CAP tx: azithromycin & ceftriaxone * Viral PCR: negative for Flu/COVID/RSV * Ordered legionella, mycoplasma and pneumococcal * Monitor vital signs, I&Os, neuro status and patient is a fall risk * Follow WBC, serum electrolytes, temperature curves and cultures * Sputum culture showed contaminated, repeat * Gentle IV fluid resuscitation * Switch to oral cefdinir, linezolid * Improved, repeat CXR showed positive improvement (4) MRSA nasal colonization: Code(s): Z22.322 - Carrier or suspected carrier of Methicillin resistant Staphylococcus aureus Status: Acute Assessment and Plan: * Nasal MRSA + * Initiate IV Vancomycin * Monitor BCs-preliminary results showed no growth * Switch to Cefdinir/Linezolid (5) Chronic hypoxic respiratory failure, on home oxygen therapy: Code(s): J96.11 - Chronic respiratory failure with hypoxia; Z99.81 - Dependence on supplemental oxygen Status: Acute Assessment and Plan: * Symptoms: SOB * SpO2: 98% * Oxygen supplementation: 3L NC * EKG: Afib w/ ventricular premature complex * Chest XR: Pulmonary opacities may represent edema, respiratory bronchiolitis, or atypical infection. Small left pleural effusion versus chronic pleural blunting. * Repeat CXR on 11/09: Cardiomegaly with interstitial edema. * Improved (6) Obstructive sleep apnea treated with BiPAP: Code(s): G47.33 - Obstructive sleep apnea (adult) (pediatric) Status: Chronic Assessment and Plan: * BiPAP will be provided for the patient to use while hospitalized (7) Chronic diastolic heart failure: Code(s): I50.32 - Chronic diastolic (congestive) heart failure Status: Chronic Assessment and Plan: * Echo 11/04/23: * LVH with overall good systolic function, hypokinesia is noted of the mid to apical septum and apex. * Sclerotic aortic valve which exhibits good leaflet separation. * Significant biatrial dilation. * Atrial fibrillation * Given 0.5mg Bumex given LE edema (although pt states this is baseline) * Monitor I/O and daily weight (8) Atrial fibrillation: Qualifiers: Atrial fibrillation type: unspecified Qualified Code(s): I48.91 - Unspecified atrial fibrillation Code(s): I48.91 - Unspecified atrial fibrillation Status: Chronic Assessment and Plan: * Rate controlled - Metoprolol * Continue Apixiban (dvt prophylaxis) (9) Chronic anticoagulation: Code(s): Z79.01 - custodial (current) use of anticoagulants Status: Chronic Assessment and Plan: * Continue Apixiban (10) Chronic kidney disease, stage 3: Code(s): N18.30 - Chronic kidney disease, stage 3 unspecified Status: Acute Assessment and Plan: * Renal function is stable on review of previous labs. * Cr 1.76, GFR 38, BUN 47 (baseline appears to be around 1.5) * 11/10: Creatinine 1.57 Subjective Date/time seen: 11/11/24 12:46 Interval history: 73-year-old male with pmhx of chronic hypoxic respiratory failure on home oxygen, HFpEF, CAD, HTN, afib on chronic anticoagulation, [place] on BiPAP, ulcerative colitis, cirrhosis, CKD, chronic anemia, BPH, diet-controlled diabete s, MRSA bacteremia, and other comorbidities who presents with SOB. 11/10/2024 Patient sitting comfortably at bedside at time examination. Denies any chest pain, n/v, abdominal pain at this time. Shortness of breath has greatly improved. Dyspnea at rest has otherwise subsided, patient is still on his baseline O2 requirement but he endorses significant improvement in his overall symptoms. His lung sounds are clear to auscultation and he does not appear to be in respiratory distress. Continuing to work with care coordination regarding SNF placement. Review of Systems Review of Systems: 12 systems were reviewed and are negativ e except for as per HPI. Exam Narrative: General: Moderately ill-appearing male sitting up in bed in no acute distress. Weight: 107.7 kg. BMI: 33.1. HEENT: PERRL, EOMI. Sclera anicteric. Conjunctiva mildly injected. Tacky mucous membranes. Neck: Supple. L no JVD or lymphadenopathy. Respiratory: Appears in no respiratory distress. Significant improvement compared to yesterday, no wheezing, crackles, or rhonchi and all lung herrera. Still baseline O2 requirement Cardiovascular: Irregularly regular rate rhythm. Soft murmur at the upper sternal border. Gastrointestinal: Abdomen is soft, obese, nontender, and nondistended with positive bowel sounds. Skin: Warm and dry. Chronic skin changes of the lower legs bilaterally. The left lower leg is erythematous and warm, concerning for cellulitis. Extremities: No cyanosis or clubbing. Bilateral lower extremity edema. Neurological: Alert and oriented. Cranial nerves 2-12 are grossly intact. No gross focal deficits to casual conversation. Psychiatric: Pleasant and cooperative with normal mood and affect. Objective Data Vital Signs Vital Signs: Vital Signs - 24 hr 11/10/24 13:50 11/10/24 14:00 11/10/24 14:00 Temperature 98.6 F Pulse Rate 88 85 76 Respiratory Rate 20 20 18 Blood Pressure 108/71 Pulse Oximetry 100 Oxygen Delivery Oxygen Flow Rate Fraction of Inspired Oxygen 11/10/24 16:00 11/10/24 18:00 11/10/24 18:09 Temperature Pulse Rate 96 83 85 Respiratory Rate 20 20 Blood Pressure Pulse Oximetry Oxygen Delivery Oxygen Flow Rate Fraction of Inspired Oxygen 11/10/24 20:30 11/10/24 20:50 11/10/24 20:50 Temperature Pulse Rate 97 Respiratory Rate Blood Pressure Pulse Oximetry 98 96 Oxygen Delivery Nasal Cannula Nasal Cannula Oxygen Flow Rate 2 2 Fraction of Inspired Oxygen 28 11/10/24 20:55 11/11/24 00:00 11/11/24 02:14 Temperature 98.3 F Pulse Rate 87 94 87 Respiratory Rate 18 Blood Pressure 107/69 Pulse Oximetry 100 94 Oxygen Delivery BiPAP Oxygen Flow Rate Fraction of Inspired Oxygen 11/11/24 02:16 11/11/24 02:26 11/11/24 04:18 Temperature Pulse Rate 91 87 92 Respiratory Rate 20 20 Blood Pressure Pulse Oximetry Oxygen Delivery Oxygen Flow Rate Fraction of Inspired Oxygen 11/11/24 06:00 11/11/24 07:49 11/11/24 07:49 Temperature 98 F Pulse Rate 91 97 Respiratory Rate 18 20 Blood Pressure 124/63 Pulse Oximetry 97 99 Oxygen Delivery Nasal Cannula Oxygen Flow Rate 4 Fraction of Inspired Oxygen 36 11/11/24 08:00 11/11/24 08:00 11/11/24 08:06 Temperature Pulse Rate 99 99 Respiratory Rate 20 Blood Pressure Pulse Oximetry 100 Oxygen Delivery Nasal Cannula Oxygen Flow Rate 2 Fraction of Inspired Oxygen 11/11/24 08:06 Temperature Pulse Rate Respiratory Rate Blood Pressure Pulse Oximetry 100 Oxygen Delivery Nasal Cannula Oxygen Flow Rate 3 Fraction of Inspired Oxygen 32 Intake/Output Intake/Output: Intake & Output 11/08/24 11/09/24 11/10/24 11/11/24 23:59 23:59 23:59 23:59 Intake Total 2150 960 3090 580 Output Total 1585 1760 1000 550 Balance 565 -800 2090 30 Meds/Results Medications: Active Medications Generic Name Dose Route Start Last Admin Trade Name Freq PRN Reason Stop Dose Admin Acetaminophen 650 mg 11/05/24 23:56 11/10/24 23:28 Acetaminophen 325 Mg Tablet PO 650 mg Q4H PRN Administration Mild Pain (1-3) or Fever Albuterol/Ipratropium 3 ml 11/06/24 08:00 11/11/24 07:49 Ipratropium 0.5 Mg/Albuterol Sulfate 2.5 Mg Ampul.Neb 3 Ml INHALATION 3 ml Q6HRT ALEKSEY Administration Apixaban 5 mg 11/06/24 09:00 11/11/24 09:04 Apixaban 5 Mg Tablet PO 5 mg Q12HR ALEKSEY Administration Aspirin 81 mg 11/06/24 21:00 11/10/24 20:53 Aspirin 81 Mg Enteric Tablet PO 81 mg HS ALEKSEY Administration Baclofen 10 mg 11/06/24 21:00 11/10/24 20:53 Baclofen 10 Mg Tablet BY MOUTH 10 mg QHS ALEKSEY Administration Benzocaine 1 lozenge 11/09/24 22:00 Benzocaine/Menthol (*Bkc) 18 Ea Lozenge PO PRN PRN Sore Throat Budesonide 0.5 mg 11/06/24 08:00 11/11/24 07:49 Budesonide Respule Neb 0.5 Mg/2 Ml Amp INHALATION 0.5 mg Q12HRT ALEKSEY Administration Bumetanide 0.5 mg 11/06/24 09:00 11/11/24 09:04 Bumetanide 0.5 Mg Tablet BY MOUTH 0.5 mg BID ALEKSEY Administration Cefdinir 300 mg 11/09/24 21:00 11/11/24 09:03 Cefdinir 300 Mg Capsule PO 11/13/24 09:01 300 mg Q12HR ALEKSEY Administration Dextrose 12.5 gm 11/06/24 00:39 Dextrose 50% 25 Gm/50 Ml Syringe IV PUSH PRN PRN Hypoglycemia Protocol Diclofenac Sodium 1 applic 11/06/24 05:01 11/10/24 08:26 Diclofenac Sodium 1% 100 Gm Gel (*Bkc) TOPICAL 1 applic QID PRN Administration Pain Ferrous Sulfate 325 mg 11/10/24 12:00 11/11/24 12:32 Ferrous Sulfate [address] PO 325 mg DAILY@1200 ALEKSEY Administration Fluconazole 200 mg 11/10/24 09:00 11/10/24 08:24 Fluconazole 100 Mg Tablet PO 200 mg WEEKLY ALEKSEY Administration Fluticasone Propionate 2 spray 11/06/24 09:00 11/11/24 09:05 Fluticasone Propionate 0.05% Na Spr 16 Gm Btl (*Bkc) NASAL 2 spray DAILY ALEKSEY Administration Folic Acid 0.4 mg 11/06/24 09:00 11/11/24 09:04 Folic Acid 0.4 Mg Tablet PO 0.4 mg DAILY ALEKSEY Administration Gabapentin 300 mg 11/06/24 09:00 11/11/24 09:03 Gabapentin 300 Mg Capsule PO 300 mg BID ALEKSEY Administration Glucagon 1 mg 11/06/24 00:39 Glucagon For Inj 1 Mg Vial IM PRN PRN Hypoglycemia Protocol Glucose 15 gm 11/06/24 00:39 Glucose Oral Gel 15 Gm Of Glucse In 37.5 Gm Tube PO PRN PRN Hypoglycemia Protocol Guaifenesin 1,200 mg 11/06/24 09:00 11/11/24 09:03 Guaifenesin 12 Hr 600 Mg Tabcr PO 1,200 mg Q12HR ALEKSEY Administration Hydrocortisone 1 applic 11/06/24 04:20 Hydrocortisone 1% 30 Gm Cream TOPICAL DAILY PRN itching Dextrose 1,000 mls @ 100 mls/hr 11/06/24 00:39 Dextrose 5% 1,000 Ml IVPB PRN PRN Hypoglycemia Protocol Insulin Aspart 3 - 6 units 11/06/24 08:00 11/11/24 12:33 Insulin Aspart (*Bkc) 100 Units/Ml SUB-Q Not Given TIDWM ALEKSEY Protocol Insulin Aspart 1 - 3 units 11/06/24 21:00 11/10/24 23:41 Insulin Aspart (*Bkc) 100 Units/Ml SUB-Q Not Given HS ALEKSEY Protocol Lactobacillus Acidophilus 1 tablet 11/06/24 09:00 11/11/24 12:33 Acidophilus/Bulgaricus Chewable Tablet PO 1 tablet TID ALEKSEY Administration Lidocaine 1 patch 11/06/24 04:36 11/10/24 08:23 Lidocaine 5% Patch TRANSDERM 1 patch DAILY PRN Administration pain Linezolid 600 mg 11/09/24 21:00 11/11/24 09:04 Linezolid 600 Mg Tablet PO 11/13/24 21:01 600 mg Q12HR ALEKSEY Administration Loratadine 10 mg 11/06/24 09:00 11/11/24 09:04 Loratadine 10 Mg Tablet PO 10 mg QAM ALEKSEY Administration Magnesium Oxide 400 mg 11/09/24 17:00 11/11/24 12:33 Magnesium Oxide 400 Mg Tablet PO 400 mg BID@1200,1700 ALEKSEY Administration Metoprolol Succinate 50 mg 11/06/24 09:00 11/11/24 12:33 Metoprolol Succinate Ext Rel 50 Mg Tabcr PO 50 mg DAILY ALEKSEY Administration Multi-Ingred Cream/Lotion/Oil/Oint 1 applic 11/06/24 09:00 11/11/24 09:05 Eucerin Cream 120 Gm Jar TOPICAL 1 applic DAILY ALEKSEY Administration Pantoprazole Sodium 40 mg 11/06/24 09:00 11/11/24 09:04 Pantoprazole 40 Mg Tablet PO 40 mg Q12HR ALEKSEY Administration Pyridoxine HCl 100 mg 11/06/24 09:00 11/11/24 09:04 Pyridoxine Hcl 50 Mg Tablet PO 100 mg QAM ALEKSEY Administration Roflumilast 500 mcg 11/06/24 09:00 11/11/24 09:04 Roflumilast 500 Mcg Tablet PO 500 mcg DAILY ALEKSEY Administration Senna/Docusate Sodium 1 tab 11/08/24 21:00 11/10/24 20:53 Senna/Docusate Sodium Tablet PO 1 tab HS ALEKSEY Administration Spironolactone 12.5 mg 11/06/24 09:00 11/11/24 09:04 Spironolactone 12.5 Mg Tablet PO 12.5 mg DAILY ALEKSEY Administration Tamsulosin HCl 0.4 mg 11/06/24 21:00 11/10/24 20:53 Tamsulosin Hcl 0.4 Mg Capsule PO 0.4 mg HS ALEKSEY Administration Triamcinolone Acetonide 1 applic 11/06/24 09:00 11/11/24 09:06 Triamcinolone Acet 0.1% Cream 15 Gm Tube TOPICAL 1 applic DAILY ALEKSEY Administration Vitamin D 25 mcg 11/06/24 21:00 11/10/24 20:54 Cholecalciferol (Vitamin D3) 25 Mcg (1,000 Units) Tablet PO 25 mcg HS ALEKSEY Administration Radiology Results: ITS Impressions Chest X-Ray 11/09/24 15:31 Impression: 1: Cardiomegaly with interstitial edema. Labs Labs: Laboratory Results - last 24 hr 11/10/24 11/10/24 11/11/24 17:21 20:54 05:33 WBC 11.0 H RBC 3.85 L Hgb 11.5 L Hct 38.3 L MCV 99.5 MCH 29.9 MCHC 30.0 L RDW 14.0 Plt Count 202 MPV 12.2 H Immature Gran % (Auto) 6.9 H Neut % (Auto) 64.9 Lymph % (Auto) 10.9 L [place] % (Auto) 11.1 H Eos % (Auto) 5.1 H Baso % (Auto) 1.1 Lymph # (Auto) 1.20 [place] # (Auto) 1.2 H Eos # (Auto) 0.6 H Baso # (Auto) 0.1 Abs Immat Gran (auto) 0.76 H Absolute Neuts (auto) 7.1 H Absolute Nucleated RBC 0.000 Band Neutrophils % Not Reportable Nucleated RBC % 0.0 Atypical Lymphocytes Present Platelet Estimate Adequate Schistocytes None seen Sodium 135 L Potassium 4.0 Chloride 99 Carbon Dioxide 32 H Anion Gap 4 BUN 37 H Creatinine 1.57 H Estim Creat Clear Calc 45 Estimated GFR 43 L Glucose 112 H POC Capillary Glucose 108 H 160 H Calcium 9.1 Total Bilirubin 0.6 AST 35 ALT 34 Alkaline Phosphatase 161 H Total Protein 6.2 L Albumin 3.3 L Quality VTE Prophylaxis VTE prophylaxis: pharmacologic ordered (on apixaban)
[2024-11-11] MEDS: CHOLECALCIFEROL (VITAMIN D3) 25 MCG (1,000 UNITS) TABLET PO (20:08)
[2024-11-11] MEDS: SENNA/DOCUSATE SODIUM TABLET 1 TAB PO (20:08)
[2024-11-11] MEDS: ASPIRIN 81 MG ENTERIC TABLET PO (20:08)
[2024-11-11] MEDS: BACLOFEN 10 MG TABLET BY MOUTH (20:08)
[2024-11-11] MEDS: TAMSULOSIN HCL 0.4 MG CAPSULE PO (20:08)
[2024-11-12] VITALS (18 sets, daily range): BP systolic 109–129; BP diastolic 71–78; PULSE 80–101; RESP 16–24; TEMP 36.5–36.6; O2SAT 97–100
[2024-11-12] MEDS: IPRATROPIUM 0.5 MG/ALBUTEROL SULFATE 2.5 MG AMPUL.NEB 3 ML INHALATION ×4 (01:59→21:23)
[2024-11-12 05:47] LABS: Basophils Absolute Auto 0.1 K/mm3 (0.0-0.1); Basophils Percent Auto 0.9 % (0.2-1.2); Eosinophils Absolute Auto 0.6 K/mm3 (0-0.3); Hematocrit 38.2 % (42.0-52.0); Hemoglobin 11.5 g/dL (14.0-18.0); Immature Granulocyte Absolute 0.63 K/mm3 (0.00-0.031); Lymphocytes Absolute Auto 1.08 K/mm3 (0.9-3.2); Lymphocytes Percent Auto 8.6 % (18.3-44.2); Mean Corpuscular HGB Conc 30.1 g/dl (32-36); Mean Corpuscular Volume 99.7 fl (80-100); Mean Platelet Volume 12.9 fl (7.4-10.4); Monocytes Absolute Auto 1.3 K/mm3 (0.1-0.6); Monocytes Percent Auto 10.5 % (2.6-8.5); Neutrophils Absolute Auto 8.9 K/mm3 (1.3-6.7); Platelet Count Result 198 k/mm3 (150-375); Red Blood Count 3.83 M/mm3 (4.6-6.20); White Blood Count 12.6 K/mm3 (4.5-10.0)
[2024-11-12 06:19] LABS: Alanine Aminotransferase 34 U/L (6-50); Albumin Level 3.4 g/dL (3.5-5.1); Alkaline Phosphatase 173 U/L (38-126); Anion Gap 7 mmol/L (4-12); Aspartate Amino Transferase 37 U/L (17-59); Bilirubin,Total 0.6 mg/dL (0.2-1.3); Blood Urea Nitrogen 37 mg/dL (9-20); Calcium 9.2 mg/dL (8.4-10.2); Carbon Dioxide 30 mmol/L (22-30); Chloride 98 mmol/L (98-107); Estimated CRCL calculation 46 ml/min; Estimated Glomerular Filt Rate 44; Glucose 117 mg/dL (65-110); Sodium 135 mmol/L (137-145); Total Protein 6.4 g/dL (6.3-8.2)
[2024-11-12] MEDS: BUDESONIDE RESPULE NEB 0.5 MG/2 ML AMP INHALATION ×2 (07:32→21:23)
[2024-11-12] MEDS: guaiFENesin 12 HR 600 MG TABCR 1200 MG PO ×2 (08:59→20:29)
[2024-11-12] MEDS: CEFDINIR 300 MG CAPSULE PO ×2 (09:00→20:29)
[2024-11-12] MEDS: BUMETANIDE 0.5 MG TABLET BY MOUTH ×2 (09:00→17:42)
[2024-11-12] MEDS: SPIRONOLACTONE 12.5 MG TABLET PO (09:00)
[2024-11-12] MEDS: FOLIC ACID 0.4 MG TABLET PO (09:00)
[2024-11-12] MEDS: LINEZOLID 600 MG TABLET PO ×2 (09:00→20:29)
[2024-11-12] MEDS: PANTOPRAZOLE 40 MG TABLET PO ×2 (09:00→20:29)
[2024-11-12] MEDS: LORATADINE 10 MG TABLET PO (09:00)
[2024-11-12] MEDS: GABAPENTIN 300 MG CAPSULE PO ×2 (09:01→17:42)
[2024-11-12] MEDS: METOPROLOL SUCCINATE EXT REL 50 MG TABCR PO (09:01)
[2024-11-12] MEDS: APIXABAN 5 MG TABLET PO ×2 (09:01→20:29)
[2024-11-12] MEDS: FLUTICASONE PROPIONATE 0.05% NA SPR 16 GM BTL (*BKC) 2 SPRAY NASAL (09:01)
[2024-11-12] MEDS: PYRIDOXINE HCL 50 MG TABLET 100 MG PO (09:01)
[2024-11-12] MEDS: EUCERIN CREAM 120 GM JAR 1 APPLIC TOPICAL (09:01)
[2024-11-12] MEDS: ACIDOPHILUS/BULGARICUS CHEWABLE TABLET 1 TABLET PO ×3 (09:01→17:43)
[2024-11-12] MEDS: ROFLUMILAST 500 MCG TABLET PO (09:01)
[2024-11-12] MEDS: TRIAMCINOLONE ACET 0.1% CREAM 15 GM TUBE 1 APPLIC TOPICAL (09:01)
[2024-11-12] MEDS: MAGNESIUM OXIDE 400 MG TABLET PO ×2 (11:26→17:43)
[2024-11-12] MEDS: ACETAMINOPHEN 325 MG TABLET 650 MG PO ×2 (11:26→17:45)
[2024-11-12] MEDS: FERROUS SULFATE 325 MG TABLET DR PO (11:26)
--- NOTE | 2024-11-12 12:50 | P.PNIM_ITS ---
Progress Note: A&P Assessment and Plan (1) Acute exacerbation of chronic obstructive pulmonary disease: Code(s): J44.1 - Chronic obstructive pulmonary disease with (acute) exacerbation Status: Acute Assessment and Plan: * Monitor vital signs, I&Os, neuro status and patient is a fall risk * Monitor serum electrolytes, cultures and CBC * Monitor Oxygen saturation, Oxygen via NC; at baseline * Sputum culture showed contaminated, repeat * Azithromycin 500mg * Continue Duonebz q6H * Patient continues to endorse some shortness of breath although it improves with duonebs * Oral Cefdinir, Linezolid * Still some congestion/cough * Add mucomyst to encourage secretion excretion (2) Left leg cellulitis: Code(s): L03.116 - Cellulitis of left lower limb Status: Acute Assessment and Plan: * Monitor vital signs, I&Os, neuro status and patient is a fall risk * Monitor serum electrolytes, CBC, cultures, WBC and temp curve * Gentle IV fluids resuscitation * Ceftriaxone discontinued * Improved (3) Pneumonia: Qualifiers: Laterality: bilateral Lung location: unspecified part of lung Pneumonia type: due to unspecified organism Qualified Code(s): J18.9 - Pneumonia, unspecified organism Code(s): J18.9 - Pneumonia, unspecified organism Status: Acute Assessment and Plan: * CXR: Pulmonary opacities may represent edema, respiratory bronchiolitis, or atypical infection. Small left pleural effusion versus chronic pleural blunting. * started on CAP tx: azithromycin & ceftriaxone * Viral PCR: negative for Flu/COVID/RSV * Ordered legionella, mycoplasma and pneumococcal * Monitor vital signs, I&Os, neuro status and patient is a fall risk * Follow WBC, serum electrolytes, temperature curves and cultures * Sputum culture showed contaminated, repeat * Gentle IV fluid resuscitation * Switch to oral cefdinir, linezolid - continue until 11/13 * Improved, repeat CXR showed positive improvement (4) MRSA nasal colonization: Code(s): Z22.322 - Carrier or suspected carrier of Methicillin resistant Staphylococcus aureus Status: Acute Assessment and Plan: * Nasal MRSA + * Initiate IV Vancomycin * Monitor BCs-preliminary results showed no growth * Switch to Cefdinir/Linezolid (5) Chronic hypoxic respiratory failure, on home oxygen therapy: Code(s): J96.11 - Chronic respiratory failure with hypoxia; Z99.81 - Dependence on supplemental oxygen Status: Acute Assessment and Plan: * Symptoms: SOB * SpO2: 98% * Oxygen supplementation: 3L NC * EKG: Afib w/ ventricular premature complex * Chest XR: Pulmonary opacities may represent edema, respiratory bronchiolitis, or atypical infection. Small left pleural effusion versus chronic pleural blunting. * Repeat CXR on 11/09: Cardiomegaly with interstitial edema. * Improved * Baseline O2 - 2L NC (6) Obstructive sleep apnea treated with BiPAP: Code(s): G47.33 - Obstructive sleep apnea (adult) (pediatric) Status: Chronic Assessment and Plan: * BiPAP will be provided for the patient to use while hospitalized (7) Chronic diastolic heart failure: Code(s): I50.32 - Chronic diastolic (congestive) heart failure Status: Chronic Assessment and Plan: * Echo 11/04/23: * LVH with overall good systolic function, hypokinesia is noted of the mid to apical septum and apex. * Sclerotic aortic valve which exhibits good leaflet separation. * Significant biatrial dilation. 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 * Cr 1.76, GFR 38, BUN 47 (baseline appears to be around 1.5) * 11/12: Creatinine 1.54 Subjective Date/time seen: 11/12/24 12:50 Interval history: 73-year-old male with pmhx of chronic hypoxic respiratory failure on home oxygen, HFpEF, CAD, HTN, afib on chronic anticoagulation, [place] on BiPAP, ulcerative colitis, cirrhosis, CKD, chronic anemia, BPH, diet-controlled diabetes, MRSA bacteremia, and other comorbidities who presents with SOB. 11/12/2024 Patient sitting comfortably at bedside at time examination. Denies CP, SOB, n/v, abd pain. Reports breathing continues to improve, still has slight productive cough, will ad Mucomyst to help clear secretions. Continue to work with PT/OT, waiting on [facility]/SNF placement, hopeful discharge tomorrow. Review of Systems Review of Systems: 12 systems were reviewed and are negativ e except for as per HPI. Exam Narrative: General: Moderately ill-appearing male sitting up in bed in no acute distress. Weight: 107.7 kg. BMI: 33.1. HEENT: PERRL, EOMI. Sclera anicteric. Conjunctiva mildly injected. Tacky mucous membranes. Neck: Supple. L no JVD or lymphadenopathy. Respiratory: Appears in no respiratory distress. Significant improvement compared to yesterday, no wheezing, crackles, or rhonchi and all lung herrera. Still baseline O2 requirement Cardiovascular: Irregularly regular rate rhythm. Soft murmur at the upper sternal border. Gastrointestinal: Abdomen is soft, obese, nontender, and nondistended with positive bowel sounds. Skin: Warm and dry. Chronic skin changes of the lower legs bilaterally. The left lower leg is erythematous and warm, concerning for cellulitis. Extremities: No cyanosis or clubbing. Bilateral lower extremity edema. Neurological: Alert and oriented. Cranial nerves 2-12 are grossly intact. No gross focal deficits to casual conversation. Psychiatric: Pleasant and cooperative with normal mood and affect. Objective Data Vital Signs Vital Signs: Vital Signs - 24 hr 11/11/24 13:36 11/11/24 13:36 11/11/24 13:43 Temperature Pulse Rate 102 H 100 Respiratory Rate 20 20 Blood Pressure Pulse Oximetry 99 Oxygen Delivery Nasal Cannula Oxygen Flow Rate 3 Fraction of Inspired Oxygen 32 11/11/24 14:00 11/11/24 16:00 11/11/24 19:36 Temperature 98.2 F Pulse Rate 96 101 H 98 Respiratory Rate 19 18 Blood Pressure 104/65 Pulse Oximetry 99 Oxygen Delivery Oxygen Flow Rate Fraction of Inspired Oxygen 11/11/24 19:52 11/11/24 20:00 11/11/24 20:00 Temperature Pulse Rate 100 97 Respiratory Rate 20 Blood Pressure Pulse Oximetry 98 Oxygen Delivery Nasal Cannula Oxygen Flow Rate 2 Fraction of Inspired Oxygen 11/11/24 22:00 11/12/24 00:00 11/12/24 02:00 Temperature 97.9 F Pulse Rate 83 92 100 Respiratory Rate 18 22 H Blood Pressure 120/83 Pulse Oximetry 98 Oxygen Delivery Oxygen Flow Rate Fraction of Inspired Oxygen 11/12/24 02:10 11/12/24 04:00 11/12/24 06:00 Temperature 97.9 F Pulse Rate 101 H 94 90 Respiratory Rate 18 16 Blood Pressure 120/71 Pulse Oximetry 100 Oxygen Delivery Oxygen Flow Rate Fraction of Inspired Oxygen 11/12/24 07:35 11/12/24 07:35 11/12/24 07:43 Temperature Pulse Rate 94 101 H Respiratory Rate 24 H 24 H Blood Pressure Pulse Oximetry 99 Oxygen Delivery Nasal Cannula Oxygen Flow Rate 5 Fraction of Inspired Oxygen 11/12/24 08:00 11/12/24 08:00 11/12/24 12:00 Temperature Pulse Rate 94 94 94 Respiratory Rate Blood Pressure Pulse Oximetry 99 Oxygen Delivery Nasal Cannula Oxygen Flow Rate 2 Fraction of Inspired Oxygen Intake/Output Intake/Output: Intake & Output 11/09/24 11/10/24 11/11/24 11/12/24 23:59 23:59 23:59 23:59 Intake Total 960 3090 3040 Output Total 1760 1000 1850 450 Balance -800 2090 1190 -450 Meds/Results Medications: Active Medications Generic Name Dose Route Start Last Admin Trade Name Freq PRN Reason Stop Dose Admin Acetaminophen 650 mg 11/05/24 23:56 11/12/24 11:26 Acetaminophen 325 Mg Tablet PO 650 mg Q4H PRN Administration Mild Pain (1-3) or Fever Acetylcysteine 200 mg 11/12/24 14:00 Acetylcysteine 20% Inhal Soln 800 Mg/4 Ml Vial INHALATION Q6HRT ALEKSEY Albuterol/Ipratropium 3 ml 11/06/24 08:00 11/12/24 07:32 Ipratropium 0.5 Mg/Albuterol Sulfate 2.5 Mg Ampul.Neb 3 Ml INHALATION 3 ml Q6HRT ALEKSEY Administration Apixaban 5 mg 11/06/24 09:00 11/12/24 09:01 Apixaban 5 Mg Tablet PO 5 mg Q12HR ALEKSEY Administration Aspirin 81 mg 11/06/24 21:00 11/11/24 20:08 Aspirin 81 Mg Enteric Tablet PO 81 mg HS ALEKSEY Administration Baclofen 10 mg 11/06/24 21:00 11/11/24 20:08 Baclofen 10 Mg Tablet BY MOUTH 10 mg QHS ALEKSEY Administration Benzocaine 1 lozenge 11/09/24 22:00 Benzocaine/Menthol (*Bkc) 18 Ea Lozenge PO PRN PRN Sore Throat Budesonide 0.5 mg 11/06/24 08:00 11/12/24 07:32 Budesonide Respule Neb 0.5 Mg/2 Ml Amp INHALATION 0.5 mg Q12HRT ALEKSEY Administration Bumetanide 0.5 mg 11/06/24 09:00 11/12/24 09:00 Bumetanide 0.5 Mg Tablet BY MOUTH 0.5 mg BID ALEKSEY Administration Cefdinir 300 mg 11/09/24 21:00 11/12/24 09:00 Cefdinir 300 Mg Capsule PO 11/13/24 09:01 300 mg Q12HR ALEKSEY Administration Dextrose 12.5 gm 11/06/24 00:39 Dextrose 50% 25 Gm/50 Ml Syringe IV PUSH PRN PRN Hypoglycemia Protocol Diclofenac Sodium 1 applic 11/06/24 05:01 11/10/24 08:26 Diclofenac Sodium 1% 100 Gm Gel (*Bkc) TOPICAL 1 applic QID PRN Administration Pain Ferrous Sulfate 325 mg 11/10/24 12:00 11/12/24 11:26 Ferrous Sulfate [address] PO 325 mg DAILY@1200 ALEKSEY Administration Fluconazole 200 mg 11/10/24 09:00 11/10/24 08:24 Fluconazole 100 Mg Tablet PO 200 mg WEEKLY ALEKSEY Administration Fluticasone Propionate 2 spray 11/06/24 09:00 11/12/24 09:01 Fluticasone Propionate 0.05% Na Spr 16 Gm Btl (*Bkc) NASAL 2 spray DAILY ALEKSEY Administration Folic Acid 0.4 mg 11/06/24 09:00 11/12/24 09:00 Folic Acid 0.4 Mg Tablet PO 0.4 mg DAILY ALEKSEY Administration Gabapentin 300 mg 11/06/24 09:00 11/12/24 09:01 Gabapentin 300 Mg Capsule PO 300 mg BID ALEKSEY Administration Glucagon 1 mg 11/06/24 00:39 Glucagon For Inj 1 Mg Vial IM PRN PRN Hypoglycemia Protocol Glucose 15 gm 11/06/24 00:39 Glucose Oral Gel 15 Gm Of Glucse In 37.5 Gm Tube PO PRN PRN Hypoglycemia Protocol Guaifenesin 1,200 mg 11/06/24 09:00 11/12/24 08:59 Guaifenesin 12 Hr 600 Mg Tabcr PO 1,200 mg Q12HR ALEKSEY Administration Hydrocortisone 1 applic 11/06/24 04:20 Hydrocortisone 1% 30 Gm Cream TOPICAL DAILY PRN itching Dextrose 1,000 mls @ 100 mls/hr 11/06/24 00:39 Dextrose 5% 1,000 Ml IVPB PRN PRN Hypoglycemia Protocol Insulin Aspart 3 - 6 units 11/06/24 08:00 11/12/24 11:28 Insulin Aspart (*Bkc) 100 Units/Ml SUB-Q Not Given TIDWM ALEKSEY Protocol Insulin Aspart 1 - 3 units 11/06/24 21:00 11/11/24 20:09 Insulin Aspart (*Bkc) 100 Units/Ml SUB-Q Not Given HS ALEKSEY Protocol Lactobacillus Acidophilus 1 tablet 11/06/24 09:00 11/12/24 09:01 Acidophilus/Bulgaricus Chewable Tablet PO 1 tablet TID ALEKSEY Administration Lidocaine 1 patch 11/06/24 04:36 11/10/24 08:23 Lidocaine 5% Patch TRANSDERM 1 patch DAILY PRN Administration pain Linezolid 600 mg 11/09/24 21:00 11/12/24 09:00 Linezolid 600 Mg Tablet PO 11/13/24 21:01 600 mg Q12HR ALEKSEY Administration Loratadine 10 mg 11/06/24 09:00 11/12/24 09:00 Loratadine 10 Mg Tablet PO 10 mg QAM ALEKSEY Administration Magnesium Oxide 400 mg 11/09/24 17:00 11/12/24 11:26 Magnesium Oxide 400 Mg Tablet PO 400 mg BID@1200,1700 ALEKSEY Administration Metoprolol Succinate 50 mg 11/06/24 09:00 11/12/24 09:01 Metoprolol Succinate Ext Rel 50 Mg Tabcr PO 50 mg DAILY ALEKSEY Administration Multi-Ingred Cream/Lotion/Oil/Oint 1 applic 11/06/24 09:00 11/12/24 09:01 Eucerin Cream 120 Gm Jar TOPICAL 1 applic DAILY ALEKSEY Administration Pantoprazole Sodium 40 mg 11/06/24 09:00 11/12/24 09:00 Pantoprazole 40 Mg Tablet PO 40 mg Q12HR ALEKSEY Administration Pyridoxine HCl 100 mg 11/06/24 09:00 11/12/24 09:01 Pyridoxine Hcl 50 Mg Tablet PO 100 mg QAM ALEKSEY Administration Roflumilast 500 mcg 11/06/24 09:00 11/12/24 09:01 Roflumilast 500 Mcg Tablet PO 500 mcg DAILY ALEKSEY Administration Senna/Docusate Sodium 1 tab 11/08/24 21:00 11/11/24 20:08 Senna/Docusate Sodium Tablet PO 1 tab HS ALEKSEY Administration Spironolactone 12.5 mg 11/06/24 09:00 11/12/24 09:00 Spironolactone 12.5 Mg Tablet PO 12.5 mg DAILY ALEKSEY Administration Tamsulosin HCl 0.4 mg 11/06/24 21:00 11/11/24 20:08 Tamsulosin Hcl 0.4 Mg Capsule PO 0.4 mg HS ALEKSEY Administration Triamcinolone Acetonide 1 applic 11/06/24 09:00 11/12/24 09:01 Triamcinolone Acet 0.1% Cream 15 Gm Tube TOPICAL 1 applic DAILY ALEKSEY Administration Vitamin D 25 mcg 11/06/24 21:00 11/11/24 20:08 Cholecalciferol (Vitamin D3) 25 Mcg (1,000 Units) Tablet PO 25 mcg HS ALEKSEY Administration Radiology Results: ITS Impressions Chest X-Ray 11/09/24 15:31 Impression: 1: Cardiomegaly with interstitial edema. Labs Labs: Laboratory Results - last 24 hr 11/12/24 04:56 WBC 12.6 H RBC 3.83 L Hgb 11.5 L Hct 38.2 L MCV 99.7 MCH 30.0 MCHC 30.1 L RDW 14.0 Plt Count 198 MPV 12.9 H Immature Gran % (Auto) 5.0 H Neut % (Auto) 70.0 Lymph % (Auto) 8.6 L [place] % (Auto) 10.5 H Eos % (Auto) 5.0 H Baso % (Auto) 0.9 Lymph # (Auto) 1.08 [place] # (Auto) 1.3 H Eos # (Auto) 0.6 H Baso # (Auto) 0.1 Abs Immat Gran (auto) 0.63 H Absolute Neuts (auto) 8.9 H Absolute Nucleated RBC 0.000 Nucleated RBC % 0.0 Sodium 135 L Potassium 4.0 Chloride 98 Carbon Dioxide 30 Anion Gap 7 BUN 37 H Creatinine 1.54 H Estim Creat Clear Calc 46 Estimated GFR 44 L Glucose 117 H Calcium 9.2 Total Bilirubin 0.6 AST 37 ALT 34 Alkaline Phosphatase 173 H Total Protein 6.4 Albumin 3.4 L Quality VTE Prophylaxis VTE prophylaxis: pharmacologic ordered (on apixaban)
[2024-11-12] MEDS: ACETYLCYSTEINE 20% INHAL SOLN 800 MG/4 ML VIAL 200 MG INHALATION ×2 (13:27→21:23)
[2024-11-12] MEDS: TAMSULOSIN HCL 0.4 MG CAPSULE PO (20:29)
[2024-11-12] MEDS: SENNA/DOCUSATE SODIUM TABLET 1 TAB PO (20:29)
[2024-11-12] MEDS: CHOLECALCIFEROL (VITAMIN D3) 25 MCG (1,000 UNITS) TABLET PO (20:29)
[2024-11-12] MEDS: BACLOFEN 10 MG TABLET BY MOUTH (20:29)
[2024-11-12] MEDS: ASPIRIN 81 MG ENTERIC TABLET PO (20:29)
[2024-11-13] VITALS (19 sets, daily range): BP systolic 124–135; BP diastolic 67–69; PULSE 65–99; RESP 16–22; TEMP 36.3–36.9; O2SAT 94–97
[2024-11-13] MEDS: IPRATROPIUM 0.5 MG/ALBUTEROL SULFATE 2.5 MG AMPUL.NEB 3 ML INHALATION ×4 (02:46→20:30)
[2024-11-13] MEDS: ACETYLCYSTEINE 20% INHAL SOLN 800 MG/4 ML VIAL 200 MG INHALATION ×4 (02:46→20:30)
[2024-11-13 05:58] LABS: Basophils Absolute Auto 0.1 K/mm3 (0.0-0.1); Eosinophils Absolute Auto 0.6 K/mm3 (0-0.3); Eosinophils Percent Auto 4.3 % (0-4.4); Hemoglobin 11.8 g/dL (14.0-18.0); Immature Granulocyte Absolute 0.42 K/mm3 (0.00-0.031); Immature Granulocyte Percent A 3.1 % (0-0.5); Lymphocytes Absolute Auto 1.08 K/mm3 (0.9-3.2); Lymphocytes Percent Auto 7.9 % (18.3-44.2); Mean Corpuscular HGB Conc 29.5 g/dl (32-36); Mean Corpuscular Hemoglobin 30.7 pg (26-34); Mean Corpuscular Volume 104.2 fl (80-100); Mean Platelet Volume 11.9 fl (7.4-10.4); Monocytes Absolute Auto 1.5 K/mm3 (0.1-0.6); Monocytes Percent Auto 10.6 % (2.6-8.5); Neutrophils Percent Auto 73.1 % (45.5-73.1); Platelet Count Result 181 k/mm3 (150-375); Red Blood Count 3.84 M/mm3 (4.6-6.20); Red Cell Distribution Width 14.2 % (11.5-14.5); White Blood Count 13.7 K/mm3 (4.5-10.0)
[2024-11-13 06:23] LABS: Alanine Aminotransferase 31 U/L (6-50); Albumin Level 3.4 g/dL (3.5-5.1); Alkaline Phosphatase 193 U/L (38-126); Anion Gap 6 mmol/L (4-12); Aspartate Amino Transferase 37 U/L (17-59); Bilirubin,Total 0.8 mg/dL (0.2-1.3); Blood Urea Nitrogen 33 mg/dL (9-20); Calcium 9.3 mg/dL (8.4-10.2); Carbon Dioxide 26 mmol/L (22-30); Chloride 101 mmol/L (98-107); Estimated CRCL calculation 48 ml/min; Estimated Glomerular Filt Rate 46; Glucose 111 mg/dL (65-110); Potassium 4.5 mmol/L (3.4-5.0); Sodium 133 mmol/L (137-145); Total Protein 6.1 g/dL (6.3-8.2)
[2024-11-13 07:13] LABS: Platelet Estimate Adequate (Adequate); Schistocytes None Seen
[2024-11-13 07:16] LABS: Atypical Lymphocytes Present
[2024-11-13 07:17] LABS: Anisocytosis 1+
[2024-11-13] MEDS: BUDESONIDE RESPULE NEB 0.5 MG/2 ML AMP INHALATION ×2 (07:34→20:30)
[2024-11-13] MEDS: BUMETANIDE 0.5 MG TABLET BY MOUTH ×2 (09:22→18:18)
[2024-11-13] MEDS: CEFDINIR 300 MG CAPSULE PO (09:22)
[2024-11-13] MEDS: guaiFENesin 12 HR 600 MG TABCR 1200 MG PO ×2 (09:22→21:40)
[2024-11-13] MEDS: PANTOPRAZOLE 40 MG TABLET PO ×2 (09:22→21:41)
[2024-11-13] MEDS: LINEZOLID 600 MG TABLET PO ×2 (09:22→21:41)
[2024-11-13] MEDS: FOLIC ACID 0.4 MG TABLET PO (09:22)
[2024-11-13] MEDS: LORATADINE 10 MG TABLET PO (09:23)
[2024-11-13] MEDS: ACETAMINOPHEN 325 MG TABLET 650 MG PO ×2 (09:23→21:46)
[2024-11-13] MEDS: METOPROLOL SUCCINATE EXT REL 50 MG TABCR PO (09:23)
[2024-11-13] MEDS: ACIDOPHILUS/BULGARICUS CHEWABLE TABLET 1 TABLET PO ×3 (09:23→18:18)
[2024-11-13] MEDS: SPIRONOLACTONE 12.5 MG TABLET PO (09:23)
[2024-11-13] MEDS: APIXABAN 5 MG TABLET PO ×2 (09:23→21:41)
[2024-11-13] MEDS: ROFLUMILAST 500 MCG TABLET PO (09:23)
[2024-11-13] MEDS: GABAPENTIN 300 MG CAPSULE PO ×2 (09:23→18:18)
[2024-11-13] MEDS: PYRIDOXINE HCL 50 MG TABLET 100 MG PO (09:23)
--- NOTE | 2024-11-13 11:09 | PCNWS ---
Weekly nutritional screen. Patient is tolerating current diet with adequate intake. No weight loss reported. No nutritional needs at this time.
[2024-11-13] MEDS: TRIAMCINOLONE ACET 0.1% CREAM 15 GM TUBE 1 APPLIC TOPICAL (13:15)
[2024-11-13] MEDS: MAGNESIUM OXIDE 400 MG TABLET PO ×2 (13:16→18:18)
[2024-11-13] MEDS: FERROUS SULFATE 325 MG TABLET DR PO (13:16)
--- NOTE | 2024-11-13 15:03 | P.PNIM_ITS ---
Progress Note: A&P Assessment and Plan (1) Acute exacerbation of chronic obstructive pulmonary disease: Code(s): J44.1 - Chronic obstructive pulmonary disease with (acute) exacerbation Status: Acute Assessment and Plan: * Monitor vital signs, I&Os, neuro status and patient is a fall risk * Monitor serum electrolytes, cultures and CBC * Monitor Oxygen saturation, Oxygen via NC; at baseline * Sputum culture + repeat negative * Continue Duonebz q6H * Oral Cefdinir, Linezolid * Still some congestion/cough * Add mucomyst to encourage secretion excretion * Continues to endorse incremental improvement since yesterday (2) Pneumonia: Qualifiers: Laterality: bilateral Lung location: unspecified part of lung Pneumonia type: due to unspecified organism Qualified Code(s): J18.9 - Pneumonia, unspecified organism Code(s): J18.9 - Pneumonia, unspecified organism Status: Acute Assessment and Plan: * CXR: Pulmonary opacities may represent edema, respiratory bronchiolitis, or atypical infection. Small left pleural effusion versus chronic pleural blunting. * started on CAP tx: azithromycin & ceftriaxone * Viral PCR: negative for Flu/COVID/RSV * Ordered legionella, mycoplasma and pneumococcal * Monitor vital signs, I&Os, neuro status and patient is a fall risk * Follow WBC, serum electrolytes, temperature curves and cultures * Sputum culture showed contaminated, repeat * Gentle IV fluid resuscitation * Switch to oral cefdinir, linezolid - continue until 11/13 * Improved, repeat CXR showed positive improvement (3) MRSA nasal colonization: Code(s): Z22.322 - Carrier or suspected carrier of Methicillin resistant Staphylococcus a ureus Status: Acute Assessment and Plan: * Nasal MRSA + * Initiate IV Vancomycin * Monitor BCs-preliminary results showed no growth * Switch to Cefdinir/Linezolid - final doses on 11/13 (4) Chronic hypoxic respiratory failure, on home oxygen therapy: Code(s): J96.11 - Chronic respiratory failure with hypoxia; Z99.81 - Dependence on supplemental oxygen Status: Acute Assessment and Plan: * Symptoms: SOB * SpO2: 98% * Oxygen supplementation: 3L NC * EKG: Afib w/ ventricular premature complex * Chest XR: Pulmonary opacities may represent edema, respiratory bronchiolitis, or atypical infection. Small left pleural effusion versus chronic pleural blunting. * Repeat CXR on 11/09: Cardiomegaly with interstitial edema. * Improved * Baseline O2 - 2L NC (5) Left leg cellulitis: Code(s): L03.116 - Cellulitis of left lower limb Status: Acute Assessment and Plan: * Monitor vital signs, I&Os, neuro status and patient is a fall risk * Monitor serum electrolytes, CBC, cultures, WBC and temp curve * Gentle IV fluids resuscitation * Ceftriaxone discontinued * Improved (6) Obstructive sleep apnea treated with BiPAP: Code(s): G47.33 - Obstructive sleep apnea (adult) (pediatric) Status: Chronic Assessment and Plan: * BiPAP will be provided for the patient to use while hospitalized (7) Chronic diastolic heart failure: Code(s): I50.32 - Chronic diastolic (congestive) heart failure Status: Chronic Assessment and Plan: * Echo 11/04/23: * LVH with overall good systolic function, hypokinesia is noted of the mid to apical septum and apex. * Sclerotic aortic valve which exhibits good leaflet separation. * Significant biatrial dilation. * Atrial fibrillation * Given 0.5mg Bumex given LE edema (although pt states this is baseline) * Monitor I/O and daily weight (8) Atrial fibrillation: Qualifiers: Atrial fibrillation type: unspecified Qualified Code(s): I48.91 - Unspecified atrial fibrillation Code(s): I48.91 - Unspecified atrial fibrillation Status: Chronic Assessment and Plan: * Rate controlled - Metoprolol * Continue Apixiban (dvt prophylaxis) (9) Chronic anticoagulation: Code(s): Z79.01 - senior living (current) use of anticoagulants Status: Chronic Assessment and Plan: * Continue Apixiban (10) Chronic kidney disease, stage 3: Code(s): N18.30 - Chronic kidney disease, stage 3 unspecified Status: Acute Assessment and Plan: * Renal function is stable on review of previous labs. * Cr 1.76, GFR 38, BUN 47 (baseline appears to be around 1.5) * 11/12: Creatinine 1.54 Subjective Date/time seen: 11/13/24 15:03 Interval history: 73-year-old male with pmhx of chronic hypoxic respiratory failure on home oxygen, HFpEF, CAD, HTN, afib on chronic anticoagulation, [place] on BiPAP, ulcerative colitis, cirrhosis, CKD, chronic anemia, BPH, diet-controlled diabetes, MRSA bacteremia, and other comorbidities who presents with SOB. 11/13/2024 Patient sitting comfortably at bedside at time examination. Denies CP, SOB, n/v, abd pain at time of examination. Patient still has some slight expiratory wheezing but otherwise clinically seems much improved. Vital signs remained stable and patient is afebrile. No gross electrolyte abnormalities. Creatinine function appears to be around baseline at this time. Currently waiting for insurance acceptance at [facility], he is accepted but just waiting on auth. Probable discharge tomorrow. Review of Systems Review of Systems: 12 systems were reviewed and are negativ e except for as per HPI. Exam Narrative: General: Moderately ill-appearing male sitting up in bed in no acute distress. Weight: 107.7 kg. BMI: 33.1. HEENT: PERRL, EOMI. Sclera anicteric. Conjunctiva mildly injected. Tacky mucous membranes. Neck: Supple. L no JVD or lymphadenopathy. Respiratory: Appears in no respiratory distress. Significant improvement compared to yesterday, no wheezing, crackles, or rhonchi and all lung herrera. Still baseline O2 requirement Cardiovascular: Irregularly regular rate rhythm. Soft murmur at the upper sternal border. Gastrointestinal: Abdomen is soft, obese, nontender, and nondistended with positive bowel sounds. Skin: Warm and dry. Chronic skin changes of the lower legs bilaterally. The left lower leg is erythematous and warm, concerning for cellulitis. Extremities: No cyanosis or clubbing. Bilateral lower extremity edema. Neurological: Alert and oriented. Cranial nerves 2-12 are grossly intact. No gross focal deficits to casual conversation. Psychiatric: Pleasant and cooperative with normal mood and affect. Objective Data Vital Signs Vital Signs: Vital Signs - 24 hr 11/12/24 16:00 11/12/24 20:00 11/12/24 20:00 Temperature Pulse Rate 93 88 Respiratory Rate Blood Pressure Pulse Oximetry 97 Oxygen Delivery Nasal Cannula Oxygen Flow Rate 2 11/12/24 21:21 11/12/24 21:49 11/12/24 22:03 Temperature Pulse Rate 80 80 Respiratory Rate 20 20 Blood Pressure Pulse Oximetry 99 Oxygen Delivery Nasal Cannula Oxygen Flow Rate 3 11/12/24 22:12 11/13/24 00:00 11/13/24 02:48 Temperature 97.8 F Pulse Rate 89 93 80 Respiratory Rate 18 20 Blood Pressure 129/78 Pulse Oximetry 100 Oxygen Delivery Oxygen Flow Rate 11/13/24 02:48 11/13/24 03:02 11/13/24 04:00 Temperature Pulse Rate 82 80 85 Respiratory Rate 20 Blood Pressure Pulse Oximetry 96 Oxygen Delivery BiPAP Oxygen Flow Rate 11/13/24 06:00 11/13/24 07:38 11/13/24 07:38 Temperature 98.4 F Pulse Rate 65 92 Respiratory Rate 18 22 H Blood Pressure 125/67 Pulse Oximetry 96 95 Oxygen Delivery Nasal Cannula Oxygen Flow Rate 2 11/13/24 08:00 11/13/24 08:00 11/13/24 08:04 Temperature Pulse Rate 91 96 Respiratory Rate 20 20 Blood Pressure Pulse Oximetry 95 Oxygen Delivery Nasal Cannula Oxygen Flow Rate 3 11/13/24 09:23 11/13/24 14:28 Temperature Pulse Rate 91 94 Respiratory Rate 20 Blood Pressure Pulse Oximetry Oxygen Delivery Oxygen Flow Rate Intake/Output Intake/Output: Intake & Output 11/10/24 11/11/24 11/12/24 11/13/24 23:59 23:59 23:59 23:59 Intake Total 3090 3040 480 780 Output Total 1000 1850 1050 1600 Balance 2090 7981 -452 -139 Meds/Results Medications: Active Medications Generic Name Dose Route Start Last Admin Trade Name Freq PRN Reason Stop Dose Admin Acetaminophen 650 mg 11/05/24 23:56 11/13/24 09:23 Acetaminophen 325 Mg Tablet PO 650 mg Q4H PRN Administration Mild Pain (1-3) or Fever Acetylcysteine 200 mg 11/12/24 14:00 11/13/24 14:27 Acetylcysteine 20% Inhal Soln 800 Mg/4 Ml Vial INHALATION 200 mg Q6HRT ALEKSEY Administration Albuterol/Ipratropium 3 ml 11/06/24 08:00 11/13/24 14:28 Ipratropium 0.5 Mg/Albuterol Sulfate 2.5 Mg Ampul.Neb 3 Ml INHALATION 3 ml Q6HRT ALEKSEY Administration Apixaban 5 mg 11/06/24 09:00 11/13/24 09:23 Apixaban 5 Mg Tablet PO 5 mg Q12HR ALEKSEY Administration Aspirin 81 mg 11/06/24 21:00 11/12/24 20:29 Aspirin 81 Mg Enteric Tablet PO 81 mg HS ALEKSEY Administration Baclofen 10 mg 11/06/24 21:00 11/12/24 20:29 Baclofen 10 Mg Tablet BY MOUTH 10 mg QHS ALEKSEY Administration Benzocaine 1 lozenge 11/09/24 22:00 Benzocaine/Menthol (*Bkc) 18 Ea Lozenge PO PRN PRN Sore Throat Budesonide 0.5 mg 11/06/24 08:00 11/13/24 07:34 Budesonide Respule Neb 0.5 Mg/2 Ml Amp INHALATION 0.5 mg Q12HRT ALEKSEY Administration Bumetanide 0.5 mg 11/06/24 09:00 11/13/24 09:22 Bumetanide 0.5 Mg Tablet BY MOUTH 0.5 mg BID ALEKSEY Administration Dextrose 12.5 gm 11/06/24 00:39 Dextrose 50% 25 Gm/50 Ml Syringe IV PUSH PRN PRN Hypoglycemia Protocol Diclofenac Sodium 1 applic 11/06/24 05:01 11/10/24 08:26 Diclofenac Sodium 1% 100 Gm Gel (*Bkc) TOPICAL 1 applic QID PRN Administration Pain Ferrous Sulfate 325 mg 11/10/24 12:00 11/13/24 13:16 Ferrous Sulfate [address] PO 325 mg DAILY@1200 ALEKSEY Administration Fluconazole 200 mg 11/10/24 09:00 11/10/24 08:24 Fluconazole 100 Mg Tablet PO 200 mg WEEKLY ALEKSEY Administration Fluticasone Propionate 2 spray 11/06/24 09:00 11/13/24 13:21 Fluticasone Propionate 0.05% Na Spr 16 Gm Btl (*Bkc) NASAL Not Given DAILY [facility] Folic Acid 0.4 mg 11/06/24 09:00 11/13/24 09:22 Folic Acid 0.4 Mg Tablet PO 0.4 mg DAILY ALEKSEY Administration Gabapentin 300 mg 11/06/24 09:00 11/13/24 09:23 Gabapentin 300 Mg Capsule PO 300 mg BID ALEKSEY Administration Glucagon 1 mg 11/06/24 00:39 Glucagon For Inj 1 Mg Vial IM PRN PRN Hypoglycemia Protocol Glucose 15 gm 11/06/24 00:39 Glucose Oral Gel 15 Gm Of Glucse In 37.5 Gm Tube PO PRN PRN Hypoglycemia Protocol Guaifenesin 1,200 mg 11/06/24 09:00 11/13/24 09:22 Guaifenesin 12 Hr 600 Mg Tabcr PO 1,200 mg Q12HR ALEKSEY Administration Hydrocortisone 1 applic 11/06/24 04:20 Hydrocortisone 1% 30 Gm Cream TOPICAL DAILY PRN itching Dextrose 1,000 mls @ 100 mls/hr 11/06/24 00:39 Dextrose 5% 1,000 Ml IVPB PRN PRN Hypoglycemia Protocol Insulin Aspart 3 - 6 units 11/06/24 08:00 11/13/24 12:08 Insulin Aspart (*Bkc) 100 Units/Ml SUB-Q Not Given TIDWM ALEKSEY Protocol Insulin Aspart 1 - 3 units 11/06/24 21:00 11/12/24 20:30 Insulin Aspart (*Bkc) 100 Units/Ml SUB-Q Not Given HS [facility] Protocol Lactobacillus Acidophilus 1 tablet 11/06/24 09:00 11/13/24 13:16 Acidophilus/Bulgaricus Chewable Tablet PO 1 tablet TID ALEKSEY Administration Lidocaine 1 patch 11/06/24 04:36 11/10/24 08:23 Lidocaine 5% Patch TRANSDERM 1 patch DAILY PRN Administration pain Linezolid 600 mg 11/09/24 21:00 11/13/24 09:22 Linezolid 600 Mg Tablet PO 11/13/24 21:01 600 mg Q12HR ALEKSEY Administration Loratadine 10 mg 11/06/24 09:00 11/13/24 09:23 Loratadine 10 Mg Tablet PO 10 mg QAM ALEKSEY Administration Magnesium Oxide 400 mg 11/09/24 17:00 11/13/24 13:16 Magnesium Oxide 400 Mg Tablet PO 400 mg BID@1200,1700 ALEKSEY Administration Metoprolol Succinate 50 mg 11/06/24 09:00 11/13/24 09:23 Metoprolol Succinate Ext Rel 50 Mg Tabcr PO 50 mg DAILY ALEKSEY Administration Multi-Ingred Cream/Lotion/Oil/Oint 1 applic 11/06/24 09:00 11/13/24 13:18 Eucerin Cream 120 Gm Jar TOPICAL Not Given DAILY ALEKSEY Pantoprazole Sodium 40 mg 11/06/24 09:00 11/13/24 09:22 Pantoprazole 40 Mg Tablet PO 40 mg Q12HR ALEKSEY Administration Pyridoxine HCl 100 mg 11/06/24 09:00 11/13/24 09:23 Pyridoxine Hcl 50 Mg Tablet PO 100 mg QAM ALEKSEY Administration Roflumilast 500 mcg 11/06/24 09:00 11/13/24 09:23 Roflumilast 500 Mcg Tablet PO 500 mcg DAILY ALEKSEY Administration Senna/Docusate Sodium 1 tab 11/08/24 21:00 11/12/24 20:29 Senna/Docusate Sodium Tablet PO 1 tab HS ALEKSEY Administration Spironolactone 12.5 mg 11/06/24 09:00 11/13/24 09:23 Spironolactone 12.5 Mg Tablet PO 12.5 mg DAILY ALEKSEY Administration Tamsulosin HCl 0.4 mg 11/06/24 21:00 11/12/24 20:29 Tamsulosin Hcl 0.4 Mg Capsule PO 0.4 mg HS ALEKSEY Administration Triamcinolone Acetonide 1 applic 11/06/24 09:00 11/13/24 13:15 Triamcinolone Acet 0.1% Cream 15 Gm Tube TOPICAL 1 applic DAILY ALEKSEY Administration Vitamin D 25 mcg 11/06/24 21:00 11/12/24 20:29 Cholecalciferol (Vitamin D3) 25 Mcg (1,000 Units) Tablet PO 25 mcg HS ALEKSEY Administration Radiology Results: ITS Impressions Chest X-Ray 11/09/24 15:31 Impression: 1: Cardiomegaly with interstitial edema. Labs Labs: Laboratory Results - last 24 hr 11/13/24 05:44 WBC 13.7 H RBC 3.84 L Hgb 11.8 L Hct 40.0 L MCV 104.2 H MCH 30.7 MCHC 29.5 L RDW 14.2 Plt Count 181 MPV 11.9 H Immature Gran % (Auto) 3.1 H Neut % (Auto) 73.1 Lymph % (Auto) 7.9 L [place] % (Auto) 10.6 H Eos % (Auto) 4.3 Baso % (Auto) 1.0 Lymph # (Auto) 1.08 [place] # (Auto) 1.5 H Eos # (Auto) 0.6 H Baso # (Auto) 0.1 Abs Immat Gran (auto) 0.42 H Absolute Neuts (auto) 10.0 H Absolute Nucleated RBC 0.000 Band Neutrophils % Not Reportable Nucleated RBC % 0.0 Atypical Lymphocytes Present Platelet Estimate Adequate Anisocytosis 1+ Schistocytes None seen Sodium 133 L Potassium 4.5 Chloride 101 Carbon Dioxide 26 Anion Gap 6 BUN 33 H Creatinine 1.48 H Estim Creat Clear Calc 48 Estimated GFR 46 L Glucose 111 H Calcium 9.3 Total Bilirubin 0.8 AST 37 ALT 31 Alkaline Phosphatase 193 H Total Protein 6.1 L Albumin 3.4 L Quality VTE Prophylaxis VTE prophylaxis: pharmacologic ordered (on apixaban)
[2024-11-13] MEDS: ASPIRIN 81 MG ENTERIC TABLET PO (21:40)
[2024-11-13] MEDS: SENNA/DOCUSATE SODIUM TABLET 1 TAB PO (21:40)
[2024-11-13] MEDS: TAMSULOSIN HCL 0.4 MG CAPSULE PO (21:41)
[2024-11-13] MEDS: CHOLECALCIFEROL (VITAMIN D3) 25 MCG (1,000 UNITS) TABLET PO (21:41)
[2024-11-13] MEDS: BACLOFEN 10 MG TABLET BY MOUTH (21:41)
[2024-11-13] MEDS: WATER FOR IRRIGATION, STERILE 1,000 ML BOTTLE 1000 ML (21:41)
[2024-11-14] VITALS (19 sets, daily range): BP systolic 118–133; BP diastolic 70–77; PULSE 61–102; RESP 16–20; TEMP 36.7–37; O2SAT 96–100
[2024-11-14] MEDS: IPRATROPIUM 0.5 MG/ALBUTEROL SULFATE 2.5 MG AMPUL.NEB 3 ML INHALATION ×4 (02:15→19:52)
[2024-11-14] MEDS: ACETYLCYSTEINE 20% INHAL SOLN 800 MG/4 ML VIAL 200 MG INHALATION ×4 (02:16→19:53)
[2024-11-14 05:44] LABS: Basophils Absolute Auto 0.1 K/mm3 (0.0-0.1); Basophils Percent Auto 0.7 % (0.2-1.2); Eosinophils Absolute Auto 0.7 K/mm3 (0-0.3); Eosinophils Percent Auto 5.1 % (0-4.4); Hematocrit 36.7 % (42.0-52.0); Hemoglobin 11.1 g/dL (14.0-18.0); Immature Granulocyte Absolute 0.35 K/mm3 (0.00-0.031); Immature Granulocyte Percent A 2.6 % (0-0.5); Lymphocytes Absolute Auto 1.18 K/mm3 (0.9-3.2); Lymphocytes Percent Auto 8.7 % (18.3-44.2); Mean Corpuscular HGB Conc 30.2 g/dl (32-36); Mean Corpuscular Hemoglobin 30.2 pg (26-34); Mean Platelet Volume 12.3 fl (7.4-10.4); Monocytes Absolute Auto 1.6 K/mm3 (0.1-0.6); Monocytes Percent Auto 11.8 % (2.6-8.5); Neutrophils Absolute Auto 9.7 K/mm3 (1.3-6.7); Neutrophils Percent Auto 71.1 % (45.5-73.1); Platelet Count Result 190 k/mm3 (150-375); Red Blood Count 3.67 M/mm3 (4.6-6.20); Red Cell Distribution Width 14.1 % (11.5-14.5); White Blood Count 13.6 K/mm3 (4.5-10.0)
[2024-11-14 05:55] LABS: Alanine Aminotransferase 30 U/L (6-50); Albumin Level 3.4 g/dL (3.5-5.1); Alkaline Phosphatase 181 U/L (38-126); Anion Gap 8 mmol/L (4-12); Aspartate Amino Transferase 37 U/L (17-59); Bilirubin,Total 0.9 mg/dL (0.2-1.3); Blood Urea Nitrogen 31 mg/dL (9-20); Calcium 9.1 mg/dL (8.4-10.2); Carbon Dioxide 29 mmol/L (22-30); Chloride 99 mmol/L (98-107); Estimated CRCL calculation 46 ml/min; Estimated Glomerular Filt Rate 44; Glucose 112 mg/dL (65-110); Potassium 4.2 mmol/L (3.4-5.0); Sodium 136 mmol/L (137-145); Total Protein 6.4 g/dL (6.3-8.2)
[2024-11-14] MEDS: BUDESONIDE RESPULE NEB 0.5 MG/2 ML AMP INHALATION ×2 (07:24→19:52)
[2024-11-14] MEDS: PYRIDOXINE HCL 50 MG TABLET 100 MG PO (09:14)
[2024-11-14] MEDS: LORATADINE 10 MG TABLET PO (09:14)
[2024-11-14] MEDS: ACIDOPHILUS/BULGARICUS CHEWABLE TABLET 1 TABLET PO ×3 (09:14→17:23)
[2024-11-14] MEDS: guaiFENesin 12 HR 600 MG TABCR 1200 MG PO ×2 (09:14→21:15)
[2024-11-14] MEDS: ROFLUMILAST 500 MCG TABLET PO (09:14)
[2024-11-14] MEDS: GABAPENTIN 300 MG CAPSULE PO ×2 (09:14→17:23)
[2024-11-14] MEDS: APIXABAN 5 MG TABLET PO ×2 (09:14→21:15)
[2024-11-14] MEDS: BUMETANIDE 0.5 MG TABLET BY MOUTH ×2 (09:15→17:23)
[2024-11-14] MEDS: PANTOPRAZOLE 40 MG TABLET PO ×2 (09:15→21:15)
[2024-11-14] MEDS: METOPROLOL SUCCINATE EXT REL 50 MG TABCR PO (09:15)
[2024-11-14] MEDS: SPIRONOLACTONE 12.5 MG TABLET PO (09:15)
[2024-11-14] MEDS: FOLIC ACID 0.4 MG TABLET PO (09:15)
[2024-11-14] MEDS: ACETAMINOPHEN 325 MG TABLET 650 MG PO ×2 (09:18→21:14)
[2024-11-14] MEDS: TRIAMCINOLONE ACET 0.1% CREAM 15 GM TUBE 1 APPLIC TOPICAL (09:21)
[2024-11-14] MEDS: EUCERIN CREAM 120 GM JAR 1 APPLIC TOPICAL (09:22)
[2024-11-14] MEDS: FLUTICASONE PROPIONATE 0.05% NA SPR 16 GM BTL (*BKC) 2 SPRAY NASAL (09:22)
[2024-11-14] MEDS: FERROUS SULFATE 325 MG TABLET DR PO (12:14)
[2024-11-14] MEDS: MAGNESIUM OXIDE 400 MG TABLET PO ×2 (12:14→17:23)
--- NOTE | 2024-11-14 15:51 | P.PNIM_ITS ---
Progress Note: A&P Assessment and Plan (1) Acute exacerbation of chronic obstructive pulmonary disease: Code(s): J44.1 - Chronic obstructive pulmonary disease with (acute) exacerbation Status: Acute Assessment and Plan: * Monitor vital signs, I&Os, neuro status and patient is a fall risk * Monitor serum electrolytes, cultures and CBC * Monitor Oxygen saturation, Oxygen via NC; at baseline * Sputum culture + repeat negative * Continue Duonebz q6H * Completed Cefdinir, Linezolid monitor (2) Pneumonia: Qualifiers: Laterality: bilateral Lung location: unspecified part of lung Pneumonia type: due to unspecified organism Qualified Code(s): J18.9 - Pneumonia, unspecified organism Code(s): J18.9 - Pneumonia, unspecified organism Status: Acute Assessment and Plan: * CXR: Pulmonary opacities may represent edema, respiratory bronchiolitis, or atypical infection. Small left pleural effusion versus chronic pleural blunting. * started on CAP tx: azithromycin & ceftriaxone * Viral PCR: negative for Flu/COVID/RSV * Ordered legionella, mycoplasma and pneumococcal * Monitor vital signs, I&Os, neuro status and patient is a fall risk * Follow WBC, serum electrolytes, temperature curves and cultures * Sputum culture showed contaminated, repeat * Gentle IV fluid resuscitation completed abx (3) MRSA nasal colonization: Code(s): Z22.322 - Carrier or suspected carrier of Methicillin resistant Staphylococcus aureus Status: Acute Assessment and Plan: * Nasal MRSA + * Initiate IV Vancomycin * Monitor BCs-preliminary results showed no growth Completed abx (4) Chronic hypoxic respiratory failure, on home oxygen therapy: Code(s): J96.11 - Chronic respiratory failure with hypoxia; Z99.81 - Dependence on supplemental oxygen Status: Acute Assessment and Plan: * Symptoms: SOB * SpO2: 98% * Oxygen supplementation: 3L NC * EKG: Afib w/ ventricular premature complex * Chest XR: Pulmonary opacities may represent edema, respiratory bronchiolitis, or atypical infection. Small left pleural effusion versus chronic pleural blunting. * Repeat CXR on 11/09: Cardiomegaly with interstitial edema. * Improved * Baseline O2 - 2L NC (5) Left leg cellulitis: Code(s): L03.116 - Cellulitis of left lower limb Status: Acute Assessment and Plan: * Monitor vital signs, I&Os, neuro status and patient is a fall risk * Monitor serum electrolytes, CBC, cultures, WBC and temp curve * Gentle IV fluids resuscitation Completed abx (6) Obstructive sleep apnea treated with BiPAP: Code(s): G47.33 - Obstructive sleep apnea (adult) (pediatric) Status: Chronic Assessment and Plan: * BiPAP will be provided for the patient to use while hospitalized (7) Chronic diastolic heart failure: Code(s): I50.32 - Chronic diastolic (congestive) heart failure Status: Chronic Assessment and Plan: * Echo 11/04/23: * LVH with overall good systolic function, hypokinesia is noted of the mid to apical septum and apex. * Sclerotic aortic valve which exhibits good leaflet separation. * Significant biatrial dilation. 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 * Cr 1.76, GFR 38, BUN 47 (baseline appears to be around 1.5) * resolved, Cr 1.53 Plan DVT prophylaxis on Eliquis Subjective Date/time seen: 11/14/24 15:51 Interval history: Comfortable and awaiting placement Review of Systems Review of Systems: 12 systems were reviewed and are negativ e except for as per HPI. Exam Narrative: General: Moderately ill-appearing male sitting up in bed in no acute distress. Weight: 107.7 kg. BMI: 33.1. HEENT: PERRL, EOMI. Sclera anicteric. Conjunctiva mildly injected. Tacky mucous membranes. Neck: Supple. L no JVD or lymphadenopathy. Respiratory: Appears in no respiratory distress. Significant improvement compared to yesterday, no wheezing, crackles, or rhonchi and all lung herrera. Still baseline O2 requirement Cardiovascular: Irregularly regular rate rhythm. Soft murmur at the upper sternal border. Gastrointestinal: Abdomen is soft, obese, nontender, and nondistended with positive bowel sounds. Skin: Warm and dry. Chronic skin changes of the lower legs bilaterally. The left lower leg is erythematous and warm, concerning for cellulitis. Extremities: No cyanosis or clubbing. Bilateral lower extremity edema. Neurological: Alert and oriented. Cranial nerves 2-12 are grossly intact. No gross focal deficits to casual conversation. Psychiatric: Pleasant and cooperative with normal mood and affect. Objective Data Vital Signs Vital Signs: Vital Signs - 24 hr 11/13/24 16:05 11/13/24 20:00 11/13/24 20:00 Temperature Pulse Rate 85 99 Respiratory Rate Blood Pressure Pulse Oximetry 96 Oxygen Delivery Nasal Cannula Oxygen Flow Rate 3 11/13/24 20:30 11/13/24 20:35 11/13/24 20:45 Temperature Pulse Rate 92 96 Respiratory Rate 20 20 Blood Pressure Pulse Oximetry 95 Oxygen Delivery Nasal Cannula Oxygen Flow Rate 2 11/13/24 22:04 11/13/24 23:45 11/14/24 00:00 Temperature 97.7 F Pulse Rate 86 78 99 Respiratory Rate 16 Blood Pressure 135/69 Pulse Oximetry 94 96 Oxygen Delivery BiPAP Oxygen Flow Rate 11/14/24 02:16 11/14/24 02:25 11/14/24 02:25 Temperature Pulse Rate 89 92 79 Respiratory Rate 20 20 Blood Pressure Pulse Oximetry 96 Oxygen Delivery BiPAP Oxygen Flow Rate 11/14/24 04:00 11/14/24 05:04 11/14/24 06:00 Temperature 98.6 F Pulse Rate 88 83 92 Respiratory Rate 18 Blood Pressure 133/70 Pulse Oximetry 96 96 Oxygen Delivery BiPAP Oxygen Flow Rate 11/14/24 07:27 11/14/24 07:27 11/14/24 07:30 Temperature Pulse Rate 98 Respiratory Rate 20 Blood Pressure Pulse Oximetry 100 100 Oxygen Delivery Nasal Cannula Nasal Cannula Oxygen Flow Rate 2 2 11/14/24 07:44 11/14/24 08:04 11/14/24 09:15 Temperature Pulse Rate 97 97 102 H Respiratory Rate 20 Blood Pressure Pulse Oximetry Oxygen Delivery Oxygen Flow Rate 11/14/24 12:05 11/14/24 13:47 11/14/24 13:57 Temperature Pulse Rate 90 90 89 Respiratory Rate 20 20 Blood Pressure Pulse Oximetry Oxygen Delivery Oxygen Flow Rate 11/14/24 14:00 Temperature 98.1 F Pulse Rate 91 Respiratory Rate 20 Blood Pressure 118/77 Pulse Oximetry 100 Oxygen Delivery Oxygen Flow Rate Intake/Output Intake/Output: Intake & Output 11/11/24 11/12/24 11/13/24 11/14/24 23:59 23:59 23:59 23:59 Intake Total 3040 480 1500 874 Output Total 1850 1050 2500 1200 Balance 1190 -570 -1000 -326 Meds/Results Medications: Active Medications Generic Name Dose Route Start Last Admin Trade Name Freq PRN Reason Stop Dose Admin Acetaminophen 650 mg 11/05/24 23:56 11/14/24 09:18 Acetaminophen 325 Mg Tablet PO 650 mg Q4H PRN Administration Mild Pain (1-3) or Fever Acetylcysteine 200 mg 11/12/24 14:00 11/14/24 13:46 Acetylcysteine 20% Inhal Soln 800 Mg/4 Ml Vial INHALATION 200 mg Q6HRT ALEKSEY Administration Albuterol/Ipratropium 3 ml 11/06/24 08:00 11/14/24 13:46 Ipratropium 0.5 Mg/Albuterol Sulfate 2.5 Mg Ampul.Neb 3 Ml INHALATION 3 ml Q6HRT ALEKSEY Administration Apixaban 5 mg 11/06/24 09:00 11/14/24 09:14 Apixaban 5 Mg Tablet PO 5 mg Q12HR ALEKSEY Administration Aspirin 81 mg 11/06/24 21:00 11/13/24 21:40 Aspirin 81 Mg Enteric Tablet PO 81 mg HS ALEKSEY Administration Baclofen 10 mg 11/06/24 21:00 11/13/24 21:41 Baclofen 10 Mg Tablet BY MOUTH 10 mg QHS ALEKSEY Administration Benzocaine 1 lozenge 11/09/24 22:00 Benzocaine/Menthol (*Bkc) 18 Ea Lozenge PO PRN PRN Sore Throat Budesonide 0.5 mg 11/06/24 08:00 11/14/24 07:24 Budesonide Respule Neb 0.5 Mg/2 Ml Amp INHALATION 0.5 mg Q12HRT ALEKSEY Administration Bumetanide 0.5 mg 11/06/24 09:00 11/14/24 09:15 Bumetanide 0.5 Mg Tablet BY MOUTH 0.5 mg BID ALEKSEY Administration Dextrose 12.5 gm 11/06/24 00:39 Dextrose 50% 25 Gm/50 Ml Syringe IV PUSH PRN PRN Hypoglycemia Protocol Diclofenac Sodium 1 applic 11/06/24 05:01 11/10/24 08:26 Diclofenac Sodium 1% 100 Gm Gel (*Bkc) TOPICAL 1 applic QID PRN Administration Pain Ferrous Sulfate 325 mg 11/10/24 12:00 11/14/24 12:14 Ferrous Sulfate [address] PO 325 mg DAILY@1200 ALEKSEY Administration Fluconazole 200 mg 11/10/24 09:00 11/10/24 08:24 Fluconazole 100 Mg Tablet PO 200 mg WEEKLY ALEKSEY Administration Fluticasone Propionate 2 spray 11/06/24 09:00 11/14/24 09:22 Fluticasone Propionate 0.05% Na Spr 16 Gm Btl (*Bkc) NASAL 2 spray DAILY ALEKSEY Administration Folic Acid 0.4 mg 11/06/24 09:00 11/14/24 09:15 Folic Acid 0.4 Mg Tablet PO 0.4 mg DAILY ALEKSEY Administration Gabapentin 300 mg 11/06/24 09:00 11/14/24 09:14 Gabapentin 300 Mg Capsule PO 300 mg BID ALEKSEY Administration Glucagon 1 mg 11/06/24 00:39 Glucagon For Inj 1 Mg Vial IM PRN PRN Hypoglycemia Protocol Glucose 15 gm 11/06/24 00:39 Glucose Oral Gel 15 Gm Of Glucse In 37.5 Gm Tube PO PRN PRN Hypoglycemia Protocol Guaifenesin 1,200 mg 11/06/24 09:00 11/14/24 09:14 Guaifenesin 12 Hr 600 Mg Tabcr PO 1,200 mg Q12HR ALEKSEY Administration Hydrocortisone 1 applic 11/06/24 04:20 Hydrocortisone 1% 30 Gm Cream TOPICAL DAILY PRN itching Dextrose 1,000 mls @ 100 mls/hr 11/06/24 00:39 Dextrose 5% 1,000 Ml IVPB PRN PRN Hypoglycemia Protocol Insulin Aspart 3 - 6 units 11/06/24 08:00 11/14/24 12:14 Insulin Aspart (*Bkc) 100 Units/Ml SUB-Q Not Given TIDWM ALEKSEY Protocol Insulin Aspart 1 - 3 units 11/06/24 21:00 11/13/24 21:42 Insulin Aspart (*Bkc) 100 Units/Ml SUB-Q Not Given HS [facility] Protocol Lactobacillus Acidophilus 1 tablet 11/06/24 09:00 11/14/24 12:14 Acidophilus/Bulgaricus Chewable Tablet PO 1 tablet TID ALEKSEY Administration Lidocaine 1 patch 11/06/24 04:36 11/10/24 08:23 Lidocaine 5% Patch TRANSDERM 1 patch DAILY PRN Administration pain Loratadine 10 mg 11/06/24 09:00 11/14/24 09:14 Loratadine 10 Mg Tablet PO 10 mg QAM ALEKSEY Administration Magnesium Oxide 400 mg 11/09/24 17:00 11/14/24 12:14 Magnesium Oxide 400 Mg Tablet PO 400 mg BID@1200,1700 ALEKSEY Administration Metoprolol Succinate 50 mg 11/06/24 09:00 11/14/24 09:15 Metoprolol Succinate Ext Rel 50 Mg Tabcr PO 50 mg DAILY ALEKSEY Administration Multi-Ingred Cream/Lotion/Oil/Oint 1 applic 11/06/24 09:00 11/14/24 09:22 Eucerin Cream 120 Gm Jar TOPICAL 1 applic DAILY ALEKSEY Administration Pantoprazole Sodium 40 mg 11/06/24 09:00 11/14/24 09:15 Pantoprazole 40 Mg Tablet PO 40 mg Q12HR ALEKSEY Administration Pyridoxine HCl 100 mg 11/06/24 09:00 11/14/24 09:14 Pyridoxine Hcl 50 Mg Tablet PO 100 mg QAM ALEKSEY Administration Roflumilast 500 mcg 11/06/24 09:00 11/14/24 09:14 Roflumilast 500 Mcg Tablet PO 500 mcg DAILY ALEKSEY Administration Senna/Docusate Sodium 1 tab 11/08/24 21:00 11/13/24 21:40 Senna/Docusate Sodium Tablet PO 1 tab HS ALEKSEY Administration Spironolactone 12.5 mg 11/06/24 09:00 11/14/24 09:15 Spironolactone 12.5 Mg Tablet PO 12.5 mg DAILY ALEKSEY Administration Tamsulosin HCl 0.4 mg 11/06/24 21:00 11/13/24 21:41 Tamsulosin Hcl 0.4 Mg Capsule PO 0.4 mg HS ALEKSEY Administration Triamcinolone Acetonide 1 applic 11/06/24 09:00 11/14/24 09:21 Triamcinolone Acet 0.1% Cream 15 Gm Tube TOPICAL 1 applic DAILY ALEKSEY Administration Vitamin D 25 mcg 11/06/24 21:00 11/13/24 21:41 Cholecalciferol (Vitamin D3) 25 Mcg (1,000 Units) Tablet PO 25 mcg HS ALEKSEY Administration Radiology Results: ITS Impressions Chest X-Ray 11/09/24 15:31 Impression: 1: Cardiomegaly with interstitial edema. Chest CT 11/14/24 11:17 IMPRESSION: 1. New tree-in-bud opacities with bronchial wall thickening and mucous plugging in the and posterior basilar segment of the left lower lobe consistent with pneumonia. 2. Minimal bibasilar pulmonary edema and small left pleural effusion. 3. Chronic pericardial calcifications which could predispose towards constrictive pericarditis. Labs Labs: Laboratory Results - last 24 hr 11/14/24 05:32 WBC 13.6 H RBC 3.67 L Hgb 11.1 L Hct 36.7 L MCV 100.0 MCH 30.2 MCHC 30.2 L RDW 14.1 Plt Count 190 MPV 12.3 H Immature Gran % (Auto) 2.6 H Neut % (Auto) 71.1 Lymph % (Auto) 8.7 L [place] % (Auto) 11.8 H Eos % (Auto) 5.1 H Baso % (Auto) 0.7 Lymph # (Auto) 1.18 [place] # (Auto) 1.6 H Eos # (Auto) 0.7 H Baso # (Auto) 0.1 Abs Immat Gran (auto) 0.35 H Absolute Neuts (auto) 9.7 H Absolute Nucleated RBC 0.000 Nucleated RBC % 0.0 Sodium 136 L Potassium 4.2 Chloride 99 Carbon Dioxide 29 Anion Gap 8 BUN 31 H Creatinine 1.53 H Estim Creat Clear Calc 46 Estimated GFR 44 L Glucose 112 H Calcium 9.1 Total Bilirubin 0.9 AST 37 ALT 30 Alkaline Phosphatase 181 H Total Protein 6.4 Albumin 3.4 L Quality VTE Prophylaxis VTE prophylaxis: pharmacologic ordered (on apixaban)
[2024-11-14] MEDS: ASPIRIN 81 MG ENTERIC TABLET PO (21:14)
[2024-11-14] MEDS: TAMSULOSIN HCL 0.4 MG CAPSULE PO (21:15)
[2024-11-14] MEDS: BACLOFEN 10 MG TABLET BY MOUTH (21:15)
[2024-11-14] MEDS: CHOLECALCIFEROL (VITAMIN D3) 25 MCG (1,000 UNITS) TABLET PO (21:15)
[2024-11-15] VITALS (18 sets, daily range): BP systolic 114–129; BP diastolic 68–76; PULSE 68–94; RESP 18–20; TEMP 36.5–36.6; O2SAT 95–100
[2024-11-15] MEDS: ACETYLCYSTEINE 20% INHAL SOLN 800 MG/4 ML VIAL 200 MG INHALATION ×4 (02:45→20:00)
[2024-11-15] MEDS: IPRATROPIUM 0.5 MG/ALBUTEROL SULFATE 2.5 MG AMPUL.NEB 3 ML INHALATION ×4 (02:45→20:00)
[2024-11-15 06:08] LABS: Basophils Absolute Auto 0.1 K/mm3 (0.0-0.1); Basophils Percent Auto 0.7 % (0.2-1.2); Eosinophils Absolute Auto 0.7 K/mm3 (0-0.3); Eosinophils Percent Auto 6.9 % (0-4.4); Hematocrit 35.4 % (42.0-52.0); Hemoglobin 10.9 g/dL (14.0-18.0); Immature Granulocyte Absolute 0.41 K/mm3 (0.00-0.031); Immature Granulocyte Percent A 3.8 % (0-0.5); Lymphocytes Absolute Auto 1.22 K/mm3 (0.9-3.2); Lymphocytes Percent Auto 11.3 % (18.3-44.2); Mean Corpuscular HGB Conc 30.8 g/dl (32-36); Mean Corpuscular Hemoglobin 30.9 pg (26-34); Mean Corpuscular Volume 100.3 fl (80-100); Mean Platelet Volume 12.6 fl (7.4-10.4); Monocytes Absolute Auto 1.3 K/mm3 (0.1-0.6); Monocytes Percent Auto 11.8 % (2.6-8.5); Neutrophils Absolute Auto 7.1 K/mm3 (1.3-6.7); Neutrophils Percent Auto 65.5 % (45.5-73.1); Platelet Count Result 165 k/mm3 (150-375); Red Blood Count 3.53 M/mm3 (4.6-6.20); Red Cell Distribution Width 14.1 % (11.5-14.5); White Blood Count 10.8 K/mm3 (4.5-10.0)
[2024-11-15 06:20] LABS: Alanine Aminotransferase 31 U/L (6-50); Albumin Level 3.3 g/dL (3.5-5.1); Alkaline Phosphatase 181 U/L (38-126); Anion Gap 5 mmol/L (4-12); Aspartate Amino Transferase 33 U/L (17-59); Bilirubin,Total 0.6 mg/dL (0.2-1.3); Blood Urea Nitrogen 31 mg/dL (9-20); Calcium 9.1 mg/dL (8.4-10.2); Carbon Dioxide 31 mmol/L (22-30); Chloride 98 mmol/L (98-107); Estimated CRCL calculation 42 ml/min; Estimated Glomerular Filt Rate 40; Glucose 99 mg/dL (65-110); Potassium 4.1 mmol/L (3.4-5.0); Sodium 134 mmol/L (137-145); Total Protein 6.7 g/dL (6.3-8.2)
[2024-11-15 07:55] LABS: Glucose Point of Care 128 mg/dl (65-105)
[2024-11-15] MEDS: PYRIDOXINE HCL 50 MG TABLET 100 MG PO (08:20)
[2024-11-15] MEDS: LORATADINE 10 MG TABLET PO (08:20)
[2024-11-15] MEDS: SPIRONOLACTONE 12.5 MG TABLET PO (08:20)
[2024-11-15] MEDS: FOLIC ACID 0.4 MG TABLET PO (08:20)
[2024-11-15] MEDS: guaiFENesin 12 HR 600 MG TABCR 1200 MG PO ×2 (08:21→20:33)
[2024-11-15] MEDS: ACETAMINOPHEN 325 MG TABLET 650 MG PO ×3 (08:21→22:17)
[2024-11-15] MEDS: GABAPENTIN 300 MG CAPSULE PO ×2 (08:21→16:59)
[2024-11-15] MEDS: APIXABAN 5 MG TABLET PO ×2 (08:21→20:33)
[2024-11-15] MEDS: METOPROLOL SUCCINATE EXT REL 50 MG TABCR PO (08:21)
[2024-11-15] MEDS: BUMETANIDE 0.5 MG TABLET BY MOUTH ×2 (08:21→16:59)
[2024-11-15] MEDS: PANTOPRAZOLE 40 MG TABLET PO ×2 (08:22→20:33)
[2024-11-15] MEDS: ACIDOPHILUS/BULGARICUS CHEWABLE TABLET 1 TABLET PO ×3 (08:22→16:59)
[2024-11-15] MEDS: ROFLUMILAST 500 MCG TABLET PO (08:22)
[2024-11-15] MEDS: FLUTICASONE PROPIONATE 0.05% NA SPR 16 GM BTL (*BKC) 2 SPRAY NASAL (08:25)
[2024-11-15] MEDS: TRIAMCINOLONE ACET 0.1% CREAM 15 GM TUBE 1 APPLIC TOPICAL (08:25)
[2024-11-15] MEDS: EUCERIN CREAM 120 GM JAR 1 APPLIC TOPICAL (08:25)
[2024-11-15] MEDS: BUDESONIDE RESPULE NEB 0.5 MG/2 ML AMP INHALATION ×2 (09:21→20:00)
[2024-11-15] MEDS: FERROUS SULFATE 325 MG TABLET DR PO (12:33)
[2024-11-15] MEDS: MAGNESIUM OXIDE 400 MG TABLET PO ×2 (12:33→16:59)
--- NOTE | 2024-11-15 13:40 | P.PNIM_ITS ---
Progress Note: A&P Assessment and Plan (1) Acute exacerbation of chronic obstructive pulmonary disease: Code(s): J44.1 - Chronic obstructive pulmonary disease with (acute) exacerbation Status: Acute Assessment and Plan: * Monitor vital signs, I&Os, neuro status and patient is a fall risk * Monitor serum electrolytes, cultures and CBC * Monitor Oxygen saturation, Oxygen via NC; at baseline * Sputum culture + repeat negative * Continue Duonebz q6H * Completed Cefdinir, Linezolid monitor (2) Pneumonia: Qualifiers: Laterality: bilateral Lung location: unspecified part of lung Pneumonia type: due to unspecified organism Qualified Code(s): J18.9 - Pneumonia, unspecified organism Code(s): J18.9 - Pneumonia, unspecified organism Status: Acute Assessment and Plan: * CXR: Pulmonary opacities may represent edema, respiratory bronchiolitis, or atypical infection. Small left pleural effusion versus chronic pleural blunting. * started on CAP tx: azithromycin & ceftriaxone * Viral PCR: negative for Flu/COVID/RSV * Ordered legionella, mycoplasma and pneumococcal * Monitor vital signs, I&Os, neuro status and patient is a fall risk * Follow WBC, serum electrolytes, temperature curves and cultures * Sputum culture showed contaminated, repeat * Gentle IV fluid resuscitation completed abx (3) MRSA nasal colonization: Code(s): Z22.322 - Carrier or suspected carrier of Methicillin resistant Staphylococcus aureus Status: Acute Assessment and Plan: * Nasal MRSA + * Initiate IV Vancomycin * Monitor BCs-preliminary results showed no growth Completed abx (4) Chronic hypoxic respiratory failure, on home oxygen therapy: Code(s): J96.11 - Chronic respiratory failure with hypoxia; Z99.81 - Dependence on supplemental oxygen Status: Acute Assessment and Plan: * Symptoms: SOB * SpO2: 98% * Oxygen supplementation: 3L NC * EKG: Afib w/ ventricular premature complex * Chest XR: Pulmonary opacities may represent edema, respiratory bronchiolitis, or atypical infection. Small left pleural effusion versus chronic pleural blunting. * Repeat CXR on 11/09: Cardiomegaly with interstitial edema. * Improved * Baseline O2 - 2L NC (5) Left leg cellulitis: Code(s): L03.116 - Cellulitis of left lower limb Status: Acute Assessment and Plan: * Monitor vital signs, I&Os, neuro status and patient is a fall risk * Monitor serum electrolytes, CBC, cultures, WBC and temp curve * Gentle IV fluids resuscitation Completed abx (6) Obstructive sleep apnea treated with BiPAP: Code(s): G47.33 - Obstructive sleep apnea (adult) (pediatric) Status: Chronic Assessment and Plan: * BiPAP will be provided for the patient to use while hospitalized (7) Chronic diastolic heart failure: Code(s): I50.32 - Chronic diastolic (congestive) heart failure Status: Chronic Assessment and Plan: * Echo 11/04/23: * LVH with overall good systolic function, hypokinesia is noted of the mid to apical septum and apex. * Sclerotic aortic valve which exhibits good leaflet separation. * Significant biatrial dilation. 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 * Cr 1.76, GFR 38, BUN 47 (baseline appears to be around 1.5) * resolved, Cr 1.53 Plan DVT prophylaxis on Eliquis awaiting placement Subjective Date/time seen: 11/15/24 13:40 Interval history: Comfortable and awaiting placement Review of Systems Review of Systems: 12 systems were reviewed and are negativ e except for as per HPI. Exam Narrative: General: Moderately ill-appearing male sitting up in bed in no acute distress. Weight: 107.7 kg. BMI: 33.1. HEENT: PERRL, EOMI. Sclera anicteric. Conjunctiva mildly injected. Tacky mucous membranes. Neck: Supple. L no JVD or lymphadenopathy. Respiratory: Appears in no respiratory distress. Significant improvement compared to yesterday, no wheezing, crackles, or rhonchi and all lung herrera. Still baseline O2 requirement Cardiovascular: Irregularly regular rate rhythm. Soft murmur at the upper sternal border. Gastrointestinal: Abdomen is soft, obese, nontender, and nondistended with positive bowel sounds. Skin: Warm and dry. Chronic skin changes of the lower legs bilaterally. The left lower leg is erythematous and warm, concerning for cellulitis. Extremities: No cyanosis or clubbing. Bilateral lower extremity edema. Neurological: Alert and oriented. Cranial nerves 2-12 are grossly intact. No gross focal deficits to casual conversation. Psychiatric: Pleasant and cooperative with normal mood and affect. Objective Data Vital Signs Vital Signs: Vital Signs - 24 hr 11/14/24 13:47 11/14/24 13:57 11/14/24 14:00 Temperature 98.1 F Pulse Rate 90 89 91 Respiratory Rate 20 20 20 Blood Pressure 118/77 Pulse Oximetry 100 Oxygen Delivery Oxygen Flow Rate 11/14/24 16:05 11/14/24 19:53 11/14/24 20:00 Temperature Pulse Rate 86 82 Respiratory Rate 16 Blood Pressure Pulse Oximetry 97 Oxygen Delivery Nasal Cannula Oxygen Flow Rate 2 11/14/24 20:00 11/14/24 21:33 11/15/24 00:00 Temperature 98.2 F Pulse Rate 87 61 84 Respiratory Rate 18 Blood Pressure 124/76 Pulse Oximetry 100 Oxygen Delivery Oxygen Flow Rate 11/15/24 03:00 11/15/24 03:07 11/15/24 04:00 Temperature Pulse Rate 72 85 89 Respiratory Rate 18 20 Blood Pressure Pulse Oximetry Oxygen Delivery Oxygen Flow Rate 11/15/24 05:28 11/15/24 08:04 11/15/24 08:07 Temperature 97.9 F Pulse Rate 90 92 Respiratory Rate 18 Blood Pressure 129/71 Pulse Oximetry 95 100 Oxygen Delivery Nasal Cannula Oxygen Flow Rate 3 11/15/24 08:21 11/15/24 09:22 11/15/24 09:22 Temperature Pulse Rate 94 88 88 Respiratory Rate 20 20 Blood Pressure Pulse Oximetry 100 Oxygen Delivery Nasal Cannula Oxygen Flow Rate 3 11/15/24 09:40 11/15/24 12:05 Temperature Pulse Rate 92 80 Respiratory Rate 20 Blood Pressure Pulse Oximetry Oxygen Delivery Oxygen Flow Rate Intake/Output Intake/Output: Intake & Output 11/12/24 11/13/24 11/14/24 11/15/24 23:59 23:59 23:59 23:59 Intake Total 480 1500 1664 540 Output Total 1055 2458 9547 1000 Balance -570 -1000 -986 -460 Meds/Results Medications: Active Medications Generic Name Dose Route Start Last Admin Trade Name Freq PRN Reason Stop Dose Admin Acetaminophen 650 mg 11/05/24 23:56 11/15/24 08:21 Acetaminophen 325 Mg Tablet PO 650 mg Q4H PRN Administration Mild Pain (1-3) or Fever Acetylcysteine 200 mg 11/12/24 14:00 11/15/24 09:21 Acetylcysteine 20% Inhal Soln 800 Mg/4 Ml Vial INHALATION 200 mg Q6HRT ALEKSEY Administration Albuterol/Ipratropium 3 ml 11/06/24 08:00 11/15/24 09:22 Ipratropium 0.5 Mg/Albuterol Sulfate 2.5 Mg Ampul.Neb 3 Ml INHALATION 3 ml Q6HRT ALEKSEY Administration Apixaban 5 mg 11/06/24 09:00 11/15/24 08:21 Apixaban 5 Mg Tablet PO 5 mg Q12HR ALEKSEY Administration Aspirin 81 mg 11/06/24 21:00 11/14/24 21:14 Aspirin 81 Mg Enteric Tablet PO 81 mg HS ALEKSEY Administration Baclofen 10 mg 11/06/24 21:00 11/14/24 21:15 Baclofen 10 Mg Tablet BY MOUTH 10 mg QHS ALEKSEY Administration Benzocaine 1 lozenge 11/09/24 22:00 Benzocaine/Menthol (*Bkc) 18 Ea Lozenge PO PRN PRN Sore Throat Budesonide 0.5 mg 11/06/24 08:00 11/15/24 09:21 Budesonide Respule Neb 0.5 Mg/2 Ml Amp INHALATION 0.5 mg Q12HRT ALEKSEY Administration Bumetanide 0.5 mg 11/06/24 09:00 11/15/24 08:21 Bumetanide 0.5 Mg Tablet BY MOUTH 0.5 mg BID ALEKSEY Administration Dextrose 12.5 gm 11/06/24 00:39 Dextrose 50% 25 Gm/50 Ml Syringe IV PUSH PRN PRN Hypoglycemia Protocol Diclofenac Sodium 1 applic 11/06/24 05:01 11/10/24 08:26 Diclofenac Sodium 1% 100 Gm Gel (*Bkc) TOPICAL 1 applic QID PRN Administration Pain Ferrous Sulfate 325 mg 11/10/24 12:00 11/15/24 12:33 Ferrous Sulfate [address] PO 325 mg DAILY@1200 ALEKSEY Administration Fluconazole 200 mg 11/10/24 09:00 11/10/24 08:24 Fluconazole 100 Mg Tablet PO 200 mg WEEKLY ALEKSEY Administration Fluticasone Propionate 2 spray 11/06/24 09:00 11/15/24 08:25 Fluticasone Propionate 0.05% Na Spr 16 Gm Btl (*Bkc) NASAL 2 spray DAILY ALEKSEY Administration Folic Acid 0.4 mg 11/06/24 09:00 11/15/24 08:20 Folic Acid 0.4 Mg Tablet PO 0.4 mg DAILY ALEKSEY Administration Gabapentin 300 mg 11/06/24 09:00 11/15/24 08:21 Gabapentin 300 Mg Capsule PO 300 mg BID ALEKSEY Administration Glucagon 1 mg 11/06/24 00:39 Glucagon For Inj 1 Mg Vial IM PRN PRN Hypoglycemia Protocol Glucose 15 gm 11/06/24 00:39 Glucose Oral Gel 15 Gm Of Glucse In 37.5 Gm Tube PO PRN PRN Hypoglycemia Protocol Guaifenesin 1,200 mg 11/06/24 09:00 11/15/24 08:21 Guaifenesin 12 Hr 600 Mg Tabcr PO 1,200 mg Q12HR ALEKSEY Administration Hydrocortisone 1 applic 11/06/24 04:20 Hydrocortisone 1% 30 Gm Cream TOPICAL DAILY PRN itching Dextrose 1,000 mls @ 100 mls/hr 11/06/24 00:39 Dextrose 5% 1,000 Ml IVPB PRN PRN Hypoglycemia Protocol Insulin Aspart 3 - 6 units 11/06/24 08:00 11/15/24 11:37 Insulin Aspart (*Bkc) 100 Units/Ml SUB-Q Not Given TIDWM ALEKSEY Protocol Insulin Aspart 1 - 3 units 11/06/24 21:00 11/14/24 21:15 Insulin Aspart (*Bkc) 100 Units/Ml SUB-Q Not Given HS [facility] Protocol Lactobacillus Acidophilus 1 tablet 11/06/24 09:00 11/15/24 12:33 Acidophilus/Bulgaricus Chewable Tablet PO 1 tablet TID ALEKSEY Administration Lidocaine 1 patch 11/06/24 04:36 11/10/24 08:23 Lidocaine 5% Patch TRANSDERM 1 patch DAILY PRN Administration pain Loratadine 10 mg 11/06/24 09:00 11/15/24 08:20 Loratadine 10 Mg Tablet PO 10 mg QAM [facility] Administration Magnesium Oxide 400 mg 11/09/24 17:00 11/15/24 12:33 Magnesium Oxide 400 Mg Tablet PO 400 mg BID@1200,1700 ALEKSEY Administration Metoprolol Succinate 50 mg 11/06/24 09:00 11/15/24 08:21 Metoprolol Succinate Ext Rel 50 Mg Tabcr PO 50 mg DAILY [facility] Administration Multi-Ingred Cream/Lotion/Oil/Oint 1 applic 11/06/24 09:00 11/15/24 08:25 Eucerin Cream 120 Gm Jar TOPICAL 1 applic DAILY [facility] Administration Pantoprazole Sodium 40 mg 11/06/24 09:00 11/15/24 08:22 Pantoprazole 40 Mg Tablet PO 40 mg Q12HR [facility] Administration Pyridoxine HCl 100 mg 11/06/24 09:00 11/15/24 08:20 Pyridoxine Hcl 50 Mg Tablet PO 100 mg QAM [facility] Administration Roflumilast 500 mcg 11/06/24 09:00 11/15/24 08:22 Roflumilast 500 Mcg Tablet PO 500 mcg DAILY [facility] Administration Senna/Docusate Sodium 1 tab 11/08/24 21:00 11/14/24 21:15 Senna/Docusate Sodium Tablet PO Not Given [facility] Spironolactone 12.5 mg 11/06/24 09:00 11/15/24 08:20 Spironolactone 12.5 Mg Tablet PO 12.5 mg DAILY [facility] Administration Tamsulosin HCl 0.4 mg 11/06/24 21:00 11/14/24 21:15 Tamsulosin Hcl 0.4 Mg Capsule PO 0.4 mg HS [facility] Administration Triamcinolone Acetonide 1 applic 11/06/24 09:00 11/15/24 08:25 Triamcinolone Acet 0.1% Cream 15 Gm Tube TOPICAL 1 applic DAILY [facility] Administration Vitamin D 25 mcg 11/06/24 21:00 11/14/24 21:15 Cholecalciferol (Vitamin D3) 25 Mcg (1,000 Units) Tablet PO 25 mcg HS [facility] Administration Radiology Results: ITS Impressions Chest X-Ray 11/09/24 15:31 Impression: 1: Cardiomegaly with interstitial edema. Chest CT 11/14/24 11:17 IMPRESSION: 1. New tree-in-bud opacities with bronchial wall thickening and mucous plugging in the and posterior basilar segment of the left lower lobe consistent with pn eumonia. 2. Minimal bibasilar pulmonary edema and small left pleural effusion. 3. Chronic pericardial calcifications which could predispose towards constrictive pericarditis. Labs Labs: Laboratory Results - last 24 hr 11/15/24 11/15/24 05:27 07:50 WBC 10.8 H RBC 3.53 L Hgb 10.9 L Hct 35.4 L MCV 100.3 H MCH 30.9 MCHC 30.8 L RDW 14.1 Plt Count 165 MPV 12.6 H Immature Gran % (Auto) 3.8 H Neut % (Auto) 65.5 Lymph % (Auto) 11.3 L [place] % (Auto) 11.8 H Eos % (Auto) 6.9 H Baso % (Auto) 0.7 Lymph # (Auto) 1.22 [place] # (Auto) 1.3 H Eos # (Auto) 0.7 H Baso # (Auto) 0.1 Abs Immat Gran (auto) 0.41 H Absolute Neuts (auto) 7.1 H Absolute Nucleated RBC 0.000 Nucleated RBC % 0.0 Sodium 134 L Potassium 4.1 Chloride 98 Carbon Dioxide 31 H Anion Gap 5 BUN 31 H Creatinine 1.68 H Estim Creat Clear Calc 42 Estimated GFR 40 L Glucose 99 POC Capillary Glucose 128 H Calcium 9.1 Total Bilirubin 0.6 AST 33 ALT 31 Alkaline Phosphatase 181 H Total Protein 6.7 Albumin 3.3 L Quality VTE Prophylaxis VTE prophylaxis: pharmacologic ordered (on apixaban)
[2024-11-15] MEDS: ASPIRIN 81 MG ENTERIC TABLET PO (20:33)
[2024-11-15] MEDS: CHOLECALCIFEROL (VITAMIN D3) 25 MCG (1,000 UNITS) TABLET PO (20:33)
[2024-11-15] MEDS: TAMSULOSIN HCL 0.4 MG CAPSULE PO (20:33)
[2024-11-15] MEDS: SENNA/DOCUSATE SODIUM TABLET 1 TAB PO (20:33)
[2024-11-15] MEDS: BACLOFEN 10 MG TABLET BY MOUTH (20:33)
[2024-11-16] VITALS (12 sets, daily range): BP systolic 126–138; BP diastolic 60–85; PULSE 68–92; RESP 18–20; TEMP 35.6–36.6; O2SAT 95–100
[2024-11-16] MEDS: ACETYLCYSTEINE 20% INHAL SOLN 800 MG/4 ML VIAL 200 MG INHALATION ×4 (02:00→19:46)
[2024-11-16] MEDS: IPRATROPIUM 0.5 MG/ALBUTEROL SULFATE 2.5 MG AMPUL.NEB 3 ML INHALATION ×4 (02:01→19:46)
[2024-11-16 06:03] LABS: Basophils Absolute Auto 0.1 K/mm3 (0.0-0.1); Basophils Percent Auto 0.9 % (0.2-1.2); Eosinophils Absolute Auto 0.7 K/mm3 (0-0.3); Eosinophils Percent Auto 6.7 % (0-4.4); Hematocrit 36.9 % (42.0-52.0); Hemoglobin 11.1 g/dL (14.0-18.0); Immature Granulocyte Percent A 2.7 % (0-0.5); Lymphocytes Percent Auto 11.8 % (18.3-44.2); Mean Corpuscular HGB Conc 30.1 g/dl (32-36); Mean Corpuscular Hemoglobin 30.1 pg (26-34); Monocytes Absolute Auto 1.2 K/mm3 (0.1-0.6); Neutrophils Absolute Auto 7.4 K/mm3 (1.3-6.7); Neutrophils Percent Auto 66.9 % (45.5-73.1); Platelet Count Result 178 k/mm3 (150-375); Red Blood Count 3.69 M/mm3 (4.6-6.20); Red Cell Distribution Width 14.3 % (11.5-14.5)
[2024-11-16 06:23] LABS: Alanine Aminotransferase 32 U/L (6-50); Albumin Level 3.5 g/dL (3.5-5.1); Alkaline Phosphatase 184 U/L (38-126); Anion Gap 5 mmol/L (4-12); Aspartate Amino Transferase 36 U/L (17-59); Bilirubin,Total 0.5 mg/dL (0.2-1.3); Blood Urea Nitrogen 34 mg/dL (9-20); Calcium 9.4 mg/dL (8.4-10.2); Carbon Dioxide 30 mmol/L (22-30); Chloride 100 mmol/L (98-107); Estimated CRCL calculation 41 ml/min; Estimated Glomerular Filt Rate 39; Glucose 112 mg/dL (65-110); Potassium 4.3 mmol/L (3.4-5.0); Sodium 135 mmol/L (137-145); Total Protein 6.4 g/dL (6.3-8.2)
[2024-11-16] MEDS: ROFLUMILAST 500 MCG TABLET PO (08:34)
[2024-11-16] MEDS: PYRIDOXINE HCL 50 MG TABLET 100 MG PO (08:34)
[2024-11-16] MEDS: guaiFENesin 12 HR 600 MG TABCR 1200 MG PO ×2 (08:34→22:20)
[2024-11-16] MEDS: APIXABAN 5 MG TABLET PO ×2 (08:34→22:21)
[2024-11-16] MEDS: PANTOPRAZOLE 40 MG TABLET PO ×2 (08:34→22:21)
[2024-11-16] MEDS: BUMETANIDE 0.5 MG TABLET BY MOUTH ×2 (08:34→16:49)
[2024-11-16] MEDS: SPIRONOLACTONE 12.5 MG TABLET PO (08:34)
[2024-11-16] MEDS: METOPROLOL SUCCINATE EXT REL 50 MG TABCR PO (08:34)
[2024-11-16] MEDS: GABAPENTIN 300 MG CAPSULE PO ×2 (08:34→16:49)
[2024-11-16] MEDS: LORATADINE 10 MG TABLET PO (08:34)
[2024-11-16] MEDS: ACIDOPHILUS/BULGARICUS CHEWABLE TABLET 1 TABLET PO ×3 (08:34→16:49)
[2024-11-16] MEDS: FOLIC ACID 0.4 MG TABLET PO (08:34)
[2024-11-16] MEDS: ACETAMINOPHEN 325 MG TABLET 650 MG PO (08:35)
[2024-11-16] MEDS: FLUTICASONE PROPIONATE 0.05% NA SPR 16 GM BTL (*BKC) 2 SPRAY NASAL (08:36)
[2024-11-16] MEDS: EUCERIN CREAM 120 GM JAR 1 APPLIC TOPICAL (08:37)
[2024-11-16] MEDS: TRIAMCINOLONE ACET 0.1% CREAM 15 GM TUBE 1 APPLIC TOPICAL (08:37)
[2024-11-16] MEDS: BUDESONIDE RESPULE NEB 0.5 MG/2 ML AMP INHALATION ×2 (09:43→19:46)
[2024-11-16] MEDS: FERROUS SULFATE 325 MG TABLET DR PO (12:24)
[2024-11-16] MEDS: MAGNESIUM OXIDE 400 MG TABLET PO ×2 (12:24→16:49)
--- NOTE | 2024-11-16 17:50 | P.PNIM_ITS ---
Progress Note: A&P Assessment and Plan (1) Acute exacerbation of chronic obstructive pulmonary disease: Code(s): J44.1 - Chronic obstructive pulmonary disease with (acute) exacerbation Status: Acute Assessment and Plan: * Monitor vital signs, I&Os, neuro status and patient is a fall risk * Monitor serum electrolytes, cultures and CBC * Monitor Oxygen saturation, Oxygen via NC; at baseline * Sputum culture + repeat negative * Continue Duonebz q6H * Completed Cefdinir, Linezolid monitor (2) Pneumonia: Qualifiers: Laterality: bilateral Lung location: unspecified part of lung Pneumonia type: due to unspecified organism Qualified Code(s): J18.9 - Pneumonia, unspecified organism Code(s): J18.9 - Pneumonia, unspecified organism Status: Acute Assessment and Plan: * CXR: Pulmonary opacities may represent edema, respiratory bronchiolitis, or atypical infection. Small left pleural effusion versus chronic pleural blunting. * started on CAP tx: azithromycin & ceftriaxone * Viral PCR: negative for Flu/COVID/RSV * Ordered legionella, mycoplasma and pneumococcal * Monitor vital signs, I&Os, neuro status and patient is a fall risk * Follow WBC, serum electrolytes, temperature curves and cultures * Sputum culture showed contaminated, repeat * Gentle IV fluid resuscitation completed abx (3) MRSA nasal colonization: Code(s): Z22.322 - Carrier or suspected carrier of Methicillin resistant Staphylococcus aureus Status: Acute Assessment and Plan: * Nasal MRSA + * Initiate IV Vancomycin * Monitor BCs-preliminary results showed no growth Completed abx (4) Chronic hypoxic respiratory failure, on home oxygen therapy: Code(s): J96.11 - Chronic respiratory failure with hypoxia; Z99.81 - Dependence on supplemental oxygen Status: Acute Assessment and Plan: * Symptoms: SOB * SpO2: 98% * Oxygen supplementation: 3L NC * EKG: Afib w/ ventricular premature complex * Chest XR: Pulmonary opacities may represent edema, respiratory bronchiolitis, or atypical infection. Small left pleural effusion versus chronic pleural blunting. * Repeat CXR on 11/09: Cardiomegaly with interstitial edema. * Improved * Baseline O2 - 2L NC (5) Left leg cellulitis: Code(s): L03.116 - Cellulitis of left lower limb Status: Acute Assessment and Plan: * Monitor vital signs, I&Os, neuro status and patient is a fall risk * Monitor serum electrolytes, CBC, cultures, WBC and temp curve * Gentle IV fluids resuscitation Completed abx (6) Obstructive sleep apnea treated with BiPAP: Code(s): G47.33 - Obstructive sleep apnea (adult) (pediatric) Status: Chronic Assessment and Plan: * BiPAP will be provided for the patient to use while hospitalized (7) Chronic diastolic heart failure: Code(s): I50.32 - Chronic diastolic (congestive) heart failure Status: Chronic Assessment and Plan: * Echo 11/04/23: * LVH with overall good systolic function, hypokinesia is noted of the mid to apical septum and apex. * Sclerotic aortic valve which exhibits good leaflet separation. * Significant biatrial dilation. 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 * Cr 1.76, GFR 38, BUN 47 (baseline appears to be around 1.5) * resolved, Cr 1.53 Plan DVT prophylaxis on Eliquis awaiting placement Subjective Date/time seen: 11/16/24 17:50 Interval history: Resting comfortably. On 3 L oxygen baseline Review of Systems Review of Systems: 12 systems were reviewed and are negativ e except for as per HPI. Exam Narrative: General: Moderately ill-appearing male sitting up in bed in no acute distress. Weight: 107.7 kg. BMI: 33.1. HEENT: PERRL, EOMI. Sclera anicteric. Conjunctiva mildly injected. Tacky mucous membranes. Neck: Supple. L no JVD or lymphadenopathy. Respiratory: Appears in no respiratory distress. Significant improvement compared to yesterday, no wheezing, crackles, or rhonchi and all lung herrera. Still baseline O2 requirement Cardiovascular: Irregularly regular rate rhythm. Soft murmur at the upper sternal border. Gastrointestinal: Abdomen is soft, obese, nontender, and nondistended with positive bowel sounds. Skin: Warm and dry. Chronic skin changes of the lower legs bilaterally. The left lower leg is erythematous and warm, concerning for cellulitis. Extremities: No cyanosis or clubbing. Bilateral lower extremity edema. Neurological: Alert and oriented. Cranial nerves 2-12 are grossly intact. No gross focal deficits to casual conversation. Psychiatric: Pleasant and cooperative with normal mood and affect. Objective Data Vital Signs Vital Signs: Vital Signs - 24 hr 11/15/24 20:00 11/15/24 20:02 11/15/24 20:02 Temperature Pulse Rate 75 79 Respiratory Rate 20 20 Blood Pressure Pulse Oximetry 100 95 Oxygen Delivery Nasal Cannula Nasal Cannula Oxygen Flow Rate 2 2 Fraction of Inspired Oxygen 32 11/15/24 20:13 11/15/24 20:55 11/16/24 02:03 Temperature 97.7 F Pulse Rate 88 75 72 Respiratory Rate 20 20 Blood Pressure 117/68 Pulse Oximetry 100 96 Oxygen Delivery BiPAP Oxygen Flow Rate Fraction of Inspired Oxygen 11/16/24 02:03 11/16/24 04:00 11/16/24 08:45 Temperature 98 F Pulse Rate 72 92 Respiratory Rate 18 20 Blood Pressure 126/60 Pulse Oximetry 96 100 Oxygen Delivery Nasal Cannula Oxygen Flow Rate 3 Fraction of Inspired Oxygen 11/16/24 09:40 11/16/24 09:40 11/16/24 13:53 Temperature 96.1 F L Pulse Rate 78 87 Respiratory Rate 20 20 Blood Pressure 138/85 Pulse Oximetry 95 100 Oxygen Delivery Nasal Cannula Oxygen Flow Rate 2 Fraction of Inspired Oxygen 28 11/16/24 14:08 11/16/24 14:08 11/16/24 14:15 Temperature Pulse Rate 68 75 Respiratory Rate 20 20 Blood Pressure Pulse Oximetry 96 Oxygen Delivery Nasal Cannula Oxygen Flow Rate 2 Fraction of Inspired Oxygen 28 Intake/Output Intake/Output: Intake & Output 11/13/24 11/14/24 11/15/24 11/16/24 23:59 23:59 23:59 23:59 Intake Total 1500 1664 1260 830 Output Total 2500 2650 1000 950 Balance -1000 -986 260 -120 Meds/Results Medications: Active Medications Generic Name Dose Route Start Last Admin Trade Name Freq PRN Reason Stop Dose Admin Acetaminophen 650 mg 11/05/24 23:56 11/16/24 08:35 Acetaminophen 325 Mg Tablet PO 650 mg Q4H PRN Administration Mild Pain (1-3) or Fever Acetylcysteine 200 mg 11/12/24 14:00 11/16/24 14:07 Acetylcysteine 20% Inhal Soln 800 Mg/4 Ml Vial INHALATION 200 mg Q6HRT ALEKSEY Administration Albuterol/Ipratropium 3 ml 11/06/24 08:00 11/16/24 14:06 Ipratropium 0.5 Mg/Albuterol Sulfate 2.5 Mg Ampul.Neb 3 Ml INHALATION 3 ml Q6HRT ALEKSEY Administration Apixaban 5 mg 11/06/24 09:00 11/16/24 08:34 Apixaban 5 Mg Tablet PO 5 mg Q12HR ALEKSEY Administration Aspirin 81 mg 11/06/24 21:00 11/15/24 20:33 Aspirin 81 Mg Enteric Tablet PO 81 mg HS ALEKSEY Administration Baclofen 10 mg 11/06/24 21:00 11/15/24 20:33 Baclofen 10 Mg Tablet BY MOUTH 10 mg QHS ALEKSEY Administration Benzocaine 1 lozenge 11/09/24 22:00 Benzocaine/Menthol (*Bkc) 18 Ea Lozenge PO PRN PRN Sore Throat Budesonide 0.5 mg 11/06/24 08:00 11/16/24 09:43 Budesonide Respule Neb 0.5 Mg/2 Ml Amp INHALATION 0.5 mg Q12HRT ALEKSEY Administration Bumetanide 0.5 mg 11/06/24 09:00 11/16/24 16:49 Bumetanide 0.5 Mg Tablet BY MOUTH 0.5 mg BID ALEKSEY Administration Dextrose 12.5 gm 11/06/24 00:39 Dextrose 50% 25 Gm/50 Ml Syringe IV PUSH PRN PRN Hypoglycemia Protocol Diclofenac Sodium 1 applic 11/06/24 05:01 11/10/24 08:26 Diclofenac Sodium 1% 100 Gm Gel (*Bkc) TOPICAL 1 applic QID PRN Administration Pain Ferrous Sulfate 325 mg 11/10/24 12:00 11/16/24 12:24 Ferrous Sulfate [address] PO 325 mg DAILY@1200 ALEKSEY Administration Fluconazole 200 mg 11/10/24 09:00 11/10/24 08:24 Fluconazole 100 Mg Tablet PO 200 mg WEEKLY ALEKSEY Administration Fluticasone Propionate 2 spray 11/06/24 09:00 11/16/24 08:36 Fluticasone Propionate 0.05% Na Spr 16 Gm Btl (*Bkc) NASAL 2 spray DAILY ALEKSEY Administration Folic Acid 0.4 mg 11/06/24 09:00 11/16/24 08:34 Folic Acid 0.4 Mg Tablet PO 0.4 mg DAILY ALEKSEY Administration Gabapentin 300 mg 11/06/24 09:00 11/16/24 16:49 Gabapentin 300 Mg Capsule PO 300 mg BID ALEKSEY Administration Glucagon 1 mg 11/06/24 00:39 Glucagon For Inj 1 Mg Vial IM PRN PRN Hypoglycemia Protocol Glucose 15 gm 11/06/24 00:39 Glucose Oral Gel 15 Gm Of Glucse In 37.5 Gm Tube PO PRN PRN Hypoglycemia Protocol Guaifenesin 1,200 mg 11/06/24 09:00 11/16/24 08:34 Guaifenesin 12 Hr 600 Mg Tabcr PO 1,200 mg Q12HR ALEKSEY Administration Hydrocortisone 1 applic 11/06/24 04:20 Hydrocortisone 1% 30 Gm Cream TOPICAL DAILY PRN itching Dextrose 1,000 mls @ 100 mls/hr 11/06/24 00:39 Dextrose 5% 1,000 Ml IVPB PRN PRN Hypoglycemia Protocol Insulin Aspart 3 - 6 units 11/06/24 08:00 11/16/24 16:49 Insulin Aspart (*Bkc) 100 Units/Ml SUB-Q Not Given TIDWM [facility] Protocol Insulin Aspart 1 - 3 units 11/06/24 21:00 11/15/24 20:34 Insulin Aspart (*Bkc) 100 Units/Ml SUB-Q Not Given HS [facility] Protocol Lactobacillus Acidophilus 1 tablet 11/06/24 09:00 11/16/24 16:49 Acidophilus/Bulgaricus Chewable Tablet PO 1 tablet TID ALEKSEY Administration Lidocaine 1 patch 11/06/24 04:36 11/10/24 08:23 Lidocaine 5% Patch TRANSDERM 1 patch DAILY PRN Administration pain Loratadine 10 mg 11/06/24 09:00 11/16/24 08:34 Loratadine 10 Mg Tablet PO 10 mg QAM ALEKSEY Administration Magnesium Oxide 400 mg 11/09/24 17:00 11/16/24 16:49 Magnesium Oxide 400 Mg Tablet PO 400 mg BID@1200,1700 ALEKSEY Administration Metoprolol Succinate 50 mg 11/06/24 09:00 11/16/24 08:34 Metoprolol Succinate Ext Rel 50 Mg Tabcr PO 50 mg DAILY ALEKSEY Administration Multi-Ingred Cream/Lotion/Oil/Oint 1 applic 11/06/24 09:00 11/16/24 08:37 Eucerin Cream 120 Gm Jar TOPICAL 1 applic DAILY ALEKSEY Administration Pantoprazole Sodium 40 mg 11/06/24 09:00 11/16/24 08:34 Pantoprazole 40 Mg Tablet PO 40 mg Q12HR ALEKSEY Administration Pyridoxine HCl 100 mg 11/06/24 09:00 11/16/24 08:34 Pyridoxine Hcl 50 Mg Tablet PO 100 mg QAM ALEKSEY Administration Roflumilast 500 mcg 11/06/24 09:00 11/16/24 08:34 Roflumilast 500 Mcg Tablet PO 500 mcg DAILY ALEKSEY Administration Senna/Docusate Sodium 1 tab 11/08/24 21:00 11/15/24 20:33 Senna/Docusate Sodium Tablet PO 1 tab HS ALEKSEY Administration Spironolactone 12.5 mg 11/06/24 09:00 11/16/24 08:34 Spironolactone 12.5 Mg Tablet PO 12.5 mg DAILY ALEKSEY Administration Tamsulosin HCl 0.4 mg 11/06/24 21:00 11/15/24 20:33 Tamsulosin Hcl 0.4 Mg Capsule PO 0.4 mg HS [facility] Administration Triamcinolone Acetonide 1 applic 11/06/24 09:00 11/16/24 08:37 Triamcinolone Acet 0.1% Cream 15 Gm Tube TOPICAL 1 applic DAILY ALEKSEY Administration Vitamin D 25 mcg 11/06/24 21:00 11/15/24 20:33 Cholecalciferol (Vitamin D3) 25 Mcg (1,000 Units) Tablet PO 25 mcg HS [facility] Administration Radiology Results: ITS Impressions Chest X-Ray 11/09/24 15:31 Impression: 1: Cardiomegaly with interstitial edema. Chest CT 11/14/24 11:17 IMPRESSION: 1. New tree-in-bud opacities with bronchial wall thickening and mucous plugging in the and posterior basilar segment of the left lower lobe consistent with pneumonia. 2. Minimal bibasilar pulmonary edema and small left pleural effusion. 3. Chronic pericardial calcifications which could predispose towards constrictive pericarditis. Labs Labs: Laboratory Results - last 24 hr 11/16/24 05:46 WBC 11.0 H RBC 3.69 L Hgb 11.1 L Hct 36.9 L MCV 100.0 MCH 30.1 MCHC 30.1 L RDW 14.3 Plt Count 178 MPV 12.0 H Immature Gran % (Auto) 2.7 H Neut % (Auto) 66.9 Lymph % (Auto) 11.8 L Gray % (Auto) 11.0 H Eos % (Auto) 6.7 H Baso % (Auto) 0.9 Lymph # (Auto) 1.30 Gray # (Auto) 1.2 H Eos # (Auto) 0.7 H Baso # (Auto) 0.1 Abs Immat Gran (auto) 0.30 H Absolute Neuts (auto) 7.4 H Absolute Nucleated RBC 0.000 Nucleated RBC % 0.0 Sodium 135 L Potassium 4.3 Chloride 100 Carbon Dioxide 30 Anion Gap 5 BUN 34 H Creatinine 1.71 H Estim Creat Clear Calc 41 Estimated GFR 39 L Glucose 112 H Calcium 9.4 Total Bilirubin 0.5 AST 36 ALT 32 Alkaline Phosphatase 184 H Total Protein 6.4 Albumin 3.5 Quality VTE Prophylaxis VTE prophylaxis: pharmacologic ordered (on apixaban) Hospitalist MIPS Advance Care Plan I have confirmed that the patient's Advanced Care Plan is present, code status is documented, or surrogate decision maker is listed in patient medical record.: Yes Medication Reconciliation I have utilized all available resources to obtain, update and review the krys ents current medications (includes all prescriptions, OTC, herbals, cannabis, and nutritional supplements).: Yes
[2024-11-16] MEDS: BACLOFEN 10 MG TABLET BY MOUTH (22:20)
[2024-11-16] MEDS: SENNA/DOCUSATE SODIUM TABLET 1 TAB PO (22:20)
[2024-11-16] MEDS: ASPIRIN 81 MG ENTERIC TABLET PO (22:21)
[2024-11-16] MEDS: TAMSULOSIN HCL 0.4 MG CAPSULE PO (22:21)
[2024-11-16] MEDS: CHOLECALCIFEROL (VITAMIN D3) 25 MCG (1,000 UNITS) TABLET PO (22:25)
[2024-11-17] VITALS (15 sets, daily range): BP systolic 112–126; BP diastolic 73–80; PULSE 61–105; RESP 18–20; TEMP 36.6–36.8; O2SAT 95–100
[2024-11-17] MEDS: ACETAMINOPHEN 325 MG TABLET 650 MG PO ×3 (00:42→21:34)
[2024-11-17] MEDS: ACETYLCYSTEINE 20% INHAL SOLN 800 MG/4 ML VIAL 200 MG INHALATION ×4 (02:22→20:22)
[2024-11-17] MEDS: IPRATROPIUM 0.5 MG/ALBUTEROL SULFATE 2.5 MG AMPUL.NEB 3 ML INHALATION ×4 (02:22→20:21)
[2024-11-17 06:47] LABS: Hematocrit 36.3 % (42.0-52.0); Mean Corpuscular HGB Conc 30.3 g/dl (32-36); Mean Corpuscular Hemoglobin 30.1 pg (26-34); Mean Corpuscular Volume 99.5 fl (80-100); Mean Platelet Volume 12.4 fl (7.4-10.4); Platelet Count Result 171 k/mm3 (150-375); Red Blood Count 3.65 M/mm3 (4.6-6.20); Red Cell Distribution Width 14.2 % (11.5-14.5); White Blood Count 12.2 K/mm3 (4.5-10.0)
[2024-11-17 07:03] LABS: Alanine Aminotransferase 31 U/L (6-50); Albumin Level 3.4 g/dL (3.5-5.1); Alkaline Phosphatase 173 U/L (38-126); Anion Gap 6 mmol/L (4-12); Aspartate Amino Transferase 33 U/L (17-59); Bilirubin,Total 0.4 mg/dL (0.2-1.3); Blood Urea Nitrogen 37 mg/dL (9-20); Calcium 9.6 mg/dL (8.4-10.2); Carbon Dioxide 31 mmol/L (22-30); Chloride 100 mmol/L (98-107); Estimated CRCL calculation 45 ml/min; Estimated Glomerular Filt Rate 43; Glucose 110 mg/dL (65-110); Potassium 3.9 mmol/L (3.4-5.0); Sodium 137 mmol/L (137-145); Total Protein 6.4 g/dL (6.3-8.2)
[2024-11-17] MEDS: BUDESONIDE RESPULE NEB 0.5 MG/2 ML AMP INHALATION ×2 (07:59→20:21)
[2024-11-17] MEDS: FOLIC ACID 0.4 MG TABLET PO (10:10)
[2024-11-17] MEDS: GABAPENTIN 300 MG CAPSULE PO ×2 (10:10→17:13)
[2024-11-17] MEDS: ACIDOPHILUS/BULGARICUS CHEWABLE TABLET 1 TABLET PO ×3 (10:10→17:13)
[2024-11-17] MEDS: METOPROLOL SUCCINATE EXT REL 50 MG TABCR PO (10:10)
[2024-11-17] MEDS: FLUCONAZOLE 100 MG TABLET 200 MG PO (10:10)
[2024-11-17] MEDS: guaiFENesin 12 HR 600 MG TABCR 1200 MG PO ×2 (10:10→21:35)
[2024-11-17] MEDS: SPIRONOLACTONE 12.5 MG TABLET PO (10:11)
[2024-11-17] MEDS: ROFLUMILAST 500 MCG TABLET PO (10:11)
[2024-11-17] MEDS: LORATADINE 10 MG TABLET PO (10:11)
[2024-11-17] MEDS: PYRIDOXINE HCL 50 MG TABLET 100 MG PO (10:11)
[2024-11-17] MEDS: PANTOPRAZOLE 40 MG TABLET PO ×2 (10:11→21:36)
[2024-11-17] MEDS: BUMETANIDE 0.5 MG TABLET BY MOUTH ×2 (10:11→17:13)
[2024-11-17] MEDS: EUCERIN CREAM 120 GM JAR 1 APPLIC TOPICAL (10:12)
[2024-11-17] MEDS: FLUTICASONE PROPIONATE 0.05% NA SPR 16 GM BTL (*BKC) 2 SPRAY NASAL (10:12)
[2024-11-17] MEDS: APIXABAN 5 MG TABLET PO ×2 (10:12→21:36)
[2024-11-17] MEDS: TRIAMCINOLONE ACET 0.1% CREAM 15 GM TUBE 1 APPLIC TOPICAL (10:14)
[2024-11-17] MEDS: FERROUS SULFATE 325 MG TABLET DR PO (13:34)
[2024-11-17] MEDS: MAGNESIUM OXIDE 400 MG TABLET PO ×2 (13:34→17:13)
--- NOTE | 2024-11-17 17:22 | P.PNIM_ITS ---
Progress Note: A&P Assessment and Plan (1) Acute exacerbation of chronic obstructive pulmonary disease: Code(s): J44.1 - Chronic obstructive pulmonary disease with (acute) exacerbation Status: Acute Assessment and Plan: * Monitor vital signs, I&Os, neuro status and patient is a fall risk * Monitor serum electrolytes, cultures and CBC * Monitor Oxygen saturation, Oxygen via NC; at baseline * Sputum culture + repeat negative * Continue Duonebz q6H * Completed Cefdinir, Linezolid monitor (2) Pneumonia: Qualifiers: Laterality: bilateral Lung location: unspecified part of lung Pneumonia type: due to unspecified organism Qualified Code(s): J18.9 - Pneumonia, unspecified organism Code(s): J18.9 - Pneumonia, unspecified organism Status: Acute Assessment and Plan: * CXR: Pulmonary opacities may represent edema, respiratory bronchiolitis, or atypical infection. Small left pleural effusion versus chronic pleural blunting. * started on CAP tx: azithromycin & ceftriaxone * Viral PCR: negative for Flu/COVID/RSV * Ordered legionella, mycoplasma and pneumococcal * Monitor vital signs, I&Os, neuro status and patient is a fall risk * Follow WBC, serum electrolytes, temperature curves and cultures * Sputum culture showed contaminated, repeat * Gentle IV fluid resuscitation completed abx (3) MRSA nasal colonization: Code(s): Z22.322 - Carrier or suspected carrier of Methicillin resistant Staphylococcus aureus Status: Acute Assessment and Plan: * Nasal MRSA + * Initiate IV Vancomycin * Monitor BCs-preliminary results showed no growth Completed abx (4) Chronic hypoxic respiratory failure, on home oxygen therapy: Code(s): J96.11 - Chronic respiratory failure with hypoxia; Z99.81 - Dependence on supplemental oxygen Status: Acute Assessment and Plan: * Symptoms: SOB * SpO2: 98% * Oxygen supplementation: 3L NC * EKG: Afib w/ ventricular premature complex * Chest XR: Pulmonary opacities may represent edema, respiratory bronchiolitis, or atypical infection. Small left pleural effusion versus chronic pleural blunting. * Repeat CXR on 11/09: Cardiomegaly with interstitial edema. * Improved * Baseline O2 - 2L NC (5) Left leg cellulitis: Code(s): L03.116 - Cellulitis of left lower limb Status: Acute Assessment and Plan: * Monitor vital signs, I&Os, neuro status and patient is a fall risk * Monitor serum electrolytes, CBC, cultures, WBC and temp curve * Gentle IV fluids resuscitation Completed abx (6) Obstructive sleep apnea treated with BiPAP: Code(s): G47.33 - Obstructive sleep apnea (adult) (pediatric) Status: Chronic Assessment and Plan: * BiPAP will be provided for the patient to use while hospitalized (7) Chronic diastolic heart failure: Code(s): I50.32 - Chronic diastolic (congestive) heart failure Status: Chronic Assessment and Plan: * Echo 11/04/23: * LVH with overall good systolic function, hypokinesia is noted of the mid to apical septum and apex. * Sclerotic aortic valve which exhibits good leaflet separation. * Significant biatrial dilation. * Atrial fibrillation * Given 0.5mg Bumex given LE edema (although pt states this is baseline) * Monitor I/O and daily weight (8) Atrial fibrillation: Qualifiers: Atrial fibrillation type: unspecified Qualified Code(s): I48.91 - Unspecified atrial fibrillation Code(s): I48.91 - Unspecified atrial fibrillation Status: Chronic Assessment and Plan: * Rate controlled - Metoprolol * Continue Apixiban (dvt prophylaxis) (9) Chronic anticoagulation: Code(s): Z79.01 - terminal manager (current) use of anticoagulants Status: Chronic Assessment and Plan: * Continue Apixiban (10) Chronic kidney disease, stage 3: Code(s): N18.30 - Chronic kidney disease, stage 3 unspecified Status: Acute Assessment and Plan: * Renal function is stable on review of previous labs. * Cr 1.76, GFR 38, BUN 47 (baseline appears to be around 1.5) * resolved, Cr 1.53 Plan DVT prophylaxis on Eliquis awaiting placement Subjective Date/time seen: 11/17/24 17:22 Interval history: Pending placement and patient is resting comfortably Review of Systems Review of Systems: 12 systems were reviewed and are negativ e except for as per HPI. Exam Narrative: General: Moderately ill-appearing male sitting up in bed in no acute distress. Weight: 107.7 kg. BMI: 33.1. HEENT: PERRL, EOMI. Sclera anicteric. Conjunctiva mildly injected. Tacky mucous membranes. Neck: Supple. L no JVD or lymphadenopathy. Respiratory: Appears in no respiratory distress. Significant improvement compared to yesterday, no wheezing, crackles, or rhonchi and all lung herrera. Still baseline O2 requirement Cardiovascular: Irregularly regular rate rhythm. Soft murmur at the upper sternal border. Gastrointestinal: Abdomen is soft, obese, nontender, and nondistended with positive bowel sounds. Skin: Warm and dry. Chronic skin changes of the lower legs bilaterally. The left lower leg is erythematous and warm, concerning for cellulitis. Extremities: No cyanosis or clubbing. Bilateral lower extremity edema. Neurological: Alert and oriented. Cranial nerves 2-12 are grossly intact. No gross focal deficits to casual conversation. Psychiatric: Pleasant and cooperative with normal mood and affect. Objective Data Vital Signs Vital Signs: Vital Signs - 24 hr 11/16/24 19:47 11/16/24 19:50 11/16/24 20:02 Temperature Pulse Rate 78 76 Respiratory Rate 20 20 Blood Pressure Pulse Oximetry 95 Oxygen Delivery Nasal Cannula Oxygen Flow Rate 2 Fraction of Inspired Oxygen 11/16/24 22:00 11/16/24 22:20 11/17/24 02:10 Temperature 97.6 F Pulse Rate 90 73 Respiratory Rate 18 20 Blood Pressure 137/77 Pulse Oximetry 100 100 Oxygen Delivery Nasal Cannula Oxygen Flow Rate 2 Fraction of Inspired Oxygen 11/17/24 02:23 11/17/24 02:24 11/17/24 04:44 Temperature 97.9 F Pulse Rate 69 73 92 Respiratory Rate 20 20 Blood Pressure 126/73 Pulse Oximetry 96 95 Oxygen Delivery BiPAP Oxygen Flow Rate Fraction of Inspired Oxygen 11/17/24 07:59 11/17/24 07:59 11/17/24 08:17 Temperature Pulse Rate 80 Respiratory Rate 20 Blood Pressure Pulse Oximetry 100 98 Oxygen Delivery Nasal Cannula Nasal Cannula Oxygen Flow Rate 3 2 Fraction of Inspired Oxygen 32 28 11/17/24 08:17 11/17/24 10:10 11/17/24 10:15 Temperature Pulse Rate 81 105 H 105 H Respiratory Rate 20 Blood Pressure Pulse Oximetry 98 Oxygen Delivery Nasal Cannula Oxygen Flow Rate 2 Fraction of Inspired Oxygen 11/17/24 13:56 11/17/24 13:56 11/17/24 14:00 Temperature Pulse Rate 78 95 Respiratory Rate 20 20 Blood Pressure 125/74 Pulse Oximetry 100 100 Oxygen Delivery Nasal Cannula Oxygen Flow Rate 2 Fraction of Inspired Oxygen 11/17/24 14:07 Temperature Pulse Rate 80 Respiratory Rate 20 Blood Pressure Pulse Oximetry Oxygen Delivery Oxygen Flow Rate Fraction of Inspired Oxygen Intake/Output Intake/Output: Intake & Output 11/14/24 11/15/24 11/16/24 11/17/24 23:59 23:59 23:59 23:59 Intake Total 1664 1260 1070 1550 Output Total 2650 1000 1450 900 Balance -986 260 -380 650 Meds/Results Medications: Active Medications Generic Name Dose Route Start Last Admin Trade Name Freq PRN Reason Stop Dose Admin Acetaminophen 650 mg 11/05/24 23:56 11/17/24 10:15 Acetaminophen 325 Mg Tablet PO 650 mg Q4H PRN Administration Mild Pain (1-3) or Fever Acetylcysteine 200 mg 11/12/24 14:00 11/17/24 13:56 Acetylcysteine 20% Inhal Soln 800 Mg/4 Ml Vial INHALATION 200 mg Q6HRT ALEKSEY Administration Albuterol/Ipratropium 3 ml 11/06/24 08:00 11/17/24 13:56 Ipratropium 0.5 Mg/Albuterol Sulfate 2.5 Mg Ampul.Neb 3 Ml INHALATION 3 ml Q6HRT ALEKSEY Administration Apixaban 5 mg 11/06/24 09:00 11/17/24 10:12 Apixaban 5 Mg Tablet PO 5 mg Q12HR ALEKSEY Administration Aspirin 81 mg 11/06/24 21:00 11/16/24 22:21 Aspirin 81 Mg Enteric Tablet PO 81 mg HS ALEKSEY Administration Baclofen 10 mg 11/06/24 21:00 11/16/24 22:20 Baclofen 10 Mg Tablet BY MOUTH 10 mg QHS ALEKSEY Administration Benzocaine 1 lozenge 11/09/24 22:00 Benzocaine/Menthol (*Bkc) 18 Ea Lozenge PO PRN PRN Sore Throat Budesonide 0.5 mg 11/06/24 08:00 11/17/24 07:59 Budesonide Respule Neb 0.5 Mg/2 Ml Amp INHALATION 0.5 mg Q12HRT ALEKSEY Administration Bumetanide 0.5 mg 11/06/24 09:00 11/17/24 17:13 Bumetanide 0.5 Mg Tablet BY MOUTH 0.5 mg BID ALEKSEY Administration Dextrose 12.5 gm 11/06/24 00:39 Dextrose 50% 25 Gm/50 Ml Syringe IV PUSH PRN PRN Hypoglycemia Protocol Diclofenac Sodium 1 applic 11/06/24 05:01 11/10/24 08:26 Diclofenac Sodium 1% 100 Gm Gel (*Bkc) TOPICAL 1 applic QID PRN Administration Pain Ferrous Sulfate 325 mg 11/10/24 12:00 11/17/24 13:34 Ferrous Sulfate [address] PO 325 mg DAILY@1200 ALEKSEY Administration Fluconazole 200 mg 11/10/24 09:00 11/17/24 10:10 Fluconazole 100 Mg Tablet PO 200 mg WEEKLY ALEKSEY Administration Fluticasone Propionate 2 spray 11/06/24 09:00 11/17/24 10:12 Fluticasone Propionate 0.05% Na Spr 16 Gm Btl (*Bkc) NASAL 2 spray DAILY ALEKSEY Administration Folic Acid 0.4 mg 11/06/24 09:00 11/17/24 10:10 Folic Acid 0.4 Mg Tablet PO 0.4 mg DAILY ALEKSEY Administration Gabapentin 300 mg 11/06/24 09:00 11/17/24 17:13 Gabapentin 300 Mg Capsule PO 300 mg BID ALEKSEY Administration Glucagon 1 mg 11/06/24 00:39 Glucagon For Inj 1 Mg Vial IM PRN PRN Hypoglycemia Protocol Glucose 15 gm 11/06/24 00:39 Glucose Oral Gel 15 Gm Of Glucse In 37.5 Gm Tube PO PRN PRN Hypoglycemia Protocol Guaifenesin 1,200 mg 11/06/24 09:00 11/17/24 10:10 Guaifenesin 12 Hr 600 Mg Tabcr PO 1,200 mg Q12HR ALEKSEY Administration Hydrocortisone 1 applic 11/06/24 04:20 Hydrocortisone 1% 30 Gm Cream TOPICAL DAILY PRN itching Dextrose 1,000 mls @ 100 mls/hr 11/06/24 00:39 Dextrose 5% 1,000 Ml IVPB PRN PRN Hypoglycemia Protocol Lactobacillus Acidophilus 1 tablet 11/06/24 09:00 11/17/24 17:13 Acidophilus/Bulgaricus Chewable Tablet PO 1 tablet TID ALEKSEY Administration Lidocaine 1 patch 11/06/24 04:36 11/10/24 08:23 Lidocaine 5% Patch TRANSDERM 1 patch DAILY PRN Administration pain Loratadine 10 mg 11/06/24 09:00 11/17/24 10:11 Loratadine 10 Mg Tablet PO 10 mg QAM ALEKSEY Administration Magnesium Oxide 400 mg 11/09/24 17:00 11/17/24 17:13 Magnesium Oxide 400 Mg Tablet PO 400 mg BID@1200,1700 ALEKSEY Administration Metoprolol Succinate 50 mg 11/06/24 09:00 11/17/24 10:10 Metoprolol Succinate Ext Rel 50 Mg Tabcr PO 50 mg DAILY ALEKSEY Administration Multi-Ingred Cream/Lotion/Oil/Oint 1 applic 11/06/24 09:00 11/17/24 10:12 Eucerin Cream 120 Gm Jar TOPICAL 1 applic DAILY ALEKSEY Administration Pantoprazole Sodium 40 mg 11/06/24 09:00 11/17/24 10:11 Pantoprazole 40 Mg Tablet PO 40 mg Q12HR ALEKSEY Administration Pyridoxine HCl 100 mg 11/06/24 09:00 11/17/24 10:11 Pyridoxine Hcl 50 Mg Tablet PO 100 mg QAM ALEKSEY Administration Roflumilast 500 mcg 11/06/24 09:00 11/17/24 10:11 Roflumilast 500 Mcg Tablet PO 500 mcg DAILY ALEKSEY Administration Senna/Docusate Sodium 1 tab 11/08/24 21:00 11/16/24 22:20 Senna/Docusate Sodium Tablet PO 1 tab HS ALEKSEY Administration Spironolactone 12.5 mg 11/06/24 09:00 11/17/24 10:11 Spironolactone 12.5 Mg Tablet PO 12.5 mg DAILY ALEKSEY Administration Tamsulosin HCl 0.4 mg 11/06/24 21:00 11/16/24 22:21 Tamsulosin Hcl 0.4 Mg Capsule PO 0.4 mg HS ALEKSEY Administration Triamcinolone Acetonide 1 applic 11/06/24 09:00 11/17/24 10:14 Triamcinolone Acet 0.1% Cream 15 Gm Tube TOPICAL 1 applic DAILY ALEKSEY Administration Vitamin D 25 mcg 11/06/24 21:00 11/16/24 22:25 Cholecalciferol (Vitamin D3) 25 Mcg (1,000 Units) Tablet PO 25 mcg HS ALEKSEY Administration Radiology Results: ITS Impressions Chest X-Ray 11/09/24 15:31 Impression: 1: Cardiomegaly with interstitial edema. Chest CT 11/14/24 11:17 IMPRESSION: 1. New tree-in-bud opacities with bronchial wall thickening and mucous plugging in the and posterior basilar segment of the left lower lobe consistent with pneumonia. 2. Minimal bibasilar pulmonary edema and small left pleural effusion. 3. Chronic pericardial calcifications which could predispose towards constrictive pericarditis. Labs Labs: Laboratory Results - last 24 hr 11/17/24 11/17/24 05:52 05:53 WBC 12.2 H RBC 3.65 L Hgb 11.0 L Hct 36.3 L MCV 99.5 MCH 30.1 MCHC 30.3 L RDW 14.2 Plt Count 171 MPV 12.4 H Sodium 137 Potassium 3.9 Chloride 100 Carbon Dioxide 31 H Anion Gap 6 BUN 37 H Creatinine 1.58 H Estim Creat Clear Calc 45 Estimated GFR 43 L Glucose 110 Calcium 9.6 Total Bilirubin 0.4 AST 33 ALT 31 Alkaline Phosphatase 173 H Total Protein 6.4 Albumin 3.4 L Quality VTE Prophylaxis VTE prophylaxis: pharmacologic ordered (on apixaban) Hospitalist MIPS Advance Care Plan I have confirmed that the patient's Advanced Care Plan is present, code status is documented, or surrogate decision maker is listed in patient medical record.: Yes Medication Reconciliation I have utilized all available resources to obtain, update and review the patients current medications (includes all prescriptions, OTC, herbals, cannabis, and nutritional supplements).: Yes
[2024-11-17] MEDS: TAMSULOSIN HCL 0.4 MG CAPSULE PO (21:35)
[2024-11-17] MEDS: ASPIRIN 81 MG ENTERIC TABLET PO (21:36)
[2024-11-17] MEDS: SENNA/DOCUSATE SODIUM TABLET 1 TAB PO (21:36)
[2024-11-17] MEDS: BACLOFEN 10 MG TABLET BY MOUTH (21:36)
[2024-11-17] MEDS: CHOLECALCIFEROL (VITAMIN D3) 25 MCG (1,000 UNITS) TABLET PO (21:51)
[2024-11-18] VITALS (14 sets, daily range): BP systolic 108–137; BP diastolic 51–73; PULSE 86–100; RESP 18–24; TEMP 36.3–36.6; O2SAT 95–100
[2024-11-18] MEDS: IPRATROPIUM 0.5 MG/ALBUTEROL SULFATE 2.5 MG AMPUL.NEB 3 ML INHALATION ×4 (02:04→19:37)
[2024-11-18] MEDS: ACETYLCYSTEINE 20% INHAL SOLN 800 MG/4 ML VIAL 200 MG INHALATION ×4 (02:04→19:37)
[2024-11-18 06:59] LABS: Hematocrit 36.1 % (42.0-52.0); Hemoglobin 11.5 g/dL (14.0-18.0); Mean Corpuscular HGB Conc 31.9 g/dl (32-36); Mean Corpuscular Hemoglobin 31.4 pg (26-34); Mean Corpuscular Volume 98.6 fl (80-100); Mean Platelet Volume 12.2 fl (7.4-10.4); Platelet Count Result 174 k/mm3 (150-375); Red Blood Count 3.66 M/mm3 (4.6-6.20); Red Cell Distribution Width 14.4 % (11.5-14.5); White Blood Count 11.8 K/mm3 (4.5-10.0)
[2024-11-18 07:15] LABS: Alanine Aminotransferase 35 U/L (6-50); Albumin Level 3.6 g/dL (3.5-5.1); Alkaline Phosphatase 180 U/L (38-126); Anion Gap 8 mmol/L (4-12); Aspartate Amino Transferase 39 U/L (17-59); Bilirubin,Total 0.5 mg/dL (0.2-1.3); Blood Urea Nitrogen 35 mg/dL (9-20); Calcium 9.6 mg/dL (8.4-10.2); Carbon Dioxide 30 mmol/L (22-30); Chloride 98 mmol/L (98-107); Estimated CRCL calculation 44 ml/min; Estimated Glomerular Filt Rate 42; Glucose 116 mg/dL (65-110); Potassium 4.5 mmol/L (3.4-5.0); Sodium 136 mmol/L (137-145); Total Protein 6.8 g/dL (6.3-8.2)
[2024-11-18] MEDS: BUDESONIDE RESPULE NEB 0.5 MG/2 ML AMP INHALATION ×2 (08:17→19:37)
[2024-11-18] MEDS: GABAPENTIN 300 MG CAPSULE PO ×2 (10:08→17:18)
[2024-11-18] MEDS: ACIDOPHILUS/BULGARICUS CHEWABLE TABLET 1 TABLET PO ×3 (10:09→17:18)
[2024-11-18] MEDS: PANTOPRAZOLE 40 MG TABLET PO ×2 (10:09→22:01)
[2024-11-18] MEDS: METOPROLOL SUCCINATE EXT REL 50 MG TABCR PO (10:09)
[2024-11-18] MEDS: PYRIDOXINE HCL 50 MG TABLET 100 MG PO (10:09)
[2024-11-18] MEDS: SPIRONOLACTONE 12.5 MG TABLET PO (10:09)
[2024-11-18] MEDS: APIXABAN 5 MG TABLET PO ×2 (10:09→22:02)
[2024-11-18] MEDS: ROFLUMILAST 500 MCG TABLET PO (10:09)
[2024-11-18] MEDS: LORATADINE 10 MG TABLET PO (10:09)
[2024-11-18] MEDS: BUMETANIDE 0.5 MG TABLET BY MOUTH ×2 (10:09→17:18)
[2024-11-18] MEDS: FLUTICASONE PROPIONATE 0.05% NA SPR 16 GM BTL (*BKC) 2 SPRAY NASAL (10:10)
[2024-11-18] MEDS: FOLIC ACID 0.4 MG TABLET PO (10:10)
[2024-11-18] MEDS: guaiFENesin 12 HR 600 MG TABCR 1200 MG PO ×2 (10:10→22:02)
[2024-11-18] MEDS: HYDROCORTISONE 1% 30 GM CREAM 1 APPLIC TOPICAL (10:11)
[2024-11-18] MEDS: EUCERIN CREAM 120 GM JAR 1 APPLIC TOPICAL (10:11)
[2024-11-18] MEDS: TRIAMCINOLONE ACET 0.1% CREAM 15 GM TUBE 1 APPLIC TOPICAL (10:13)
[2024-11-18] MEDS: ACETAMINOPHEN 325 MG TABLET 650 MG PO ×2 (10:17→22:02)
[2024-11-18] MEDS: FERROUS SULFATE 325 MG TABLET DR PO (12:04)
[2024-11-18] MEDS: MAGNESIUM OXIDE 400 MG TABLET PO ×2 (12:04→17:18)
--- NOTE | 2024-11-18 17:04 | P.PNIM_ITS ---
Progress Note: A&P Assessment and Plan (1) Acute exacerbation of chronic obstructive pulmonary disease: Code(s): J44.1 - Chronic obstructive pulmonary disease with (acute) exacerbation Status: Acute Assessment and Plan: * Monitor vital signs, I&Os, neuro status and patient is a fall risk * Monitor serum electrolytes, cultures and CBC * Monitor Oxygen saturation, Oxygen via NC; at baseline * Sputum culture + repeat negative * Continue Duonebz q6H * Completed Cefdinir, Linezolid monitor (2) Pneumonia: Qualifiers: Laterality: bilateral Lung location: unspecified part of lung Pneumonia type: due to unspecified organism Qualified Code(s): J18.9 - Pneumonia, unspecified organism Code(s): J18.9 - Pneumonia, unspecified organism Status: Acute Assessment and Plan: * CXR: Pulmonary opacities may represent edema, respiratory bronchiolitis, or atypical infection. Small left pleural effusion versus chronic pleural blunting. * started on CAP tx: azithromycin & ceftriaxone * Viral PCR: negative for Flu/COVID/RSV * Ordered legionella, mycoplasma and pneumococcal * Monitor vital signs, I&Os, neuro status and patient is a fall risk * Follow WBC, serum electrolytes, temperature curves and cultures * Sputum culture showed contaminated, repeat * Gentle IV fluid resuscitation completed abx (3) MRSA nasal colonization: Code(s): Z22.322 - Carrier or suspected carrier of Methicillin resistant Staphylococcus aureus Status: Acute Assessment and Plan: * Nasal MRSA + * Initiate IV Vancomycin * Monitor BCs-preliminary results showed no growth Completed abx (4) Chronic hypoxic respiratory failure, on home oxygen therapy: Code(s): J96.11 - Chronic respiratory failure with hypoxia; Z99.81 - Dependence on supplemental oxygen Status: Acute Assessment and Plan: * Symptoms: SOB * SpO2: 98% * Oxygen supplementation: 3L NC * EKG: Afib w/ ventricular premature complex * Chest XR: Pulmonary opacities may represent edema, respiratory bronchiolitis, or atypical infection. Small left pleural effusion versus chronic pleural blunting. * Repeat CXR on 11/09: Cardiomegaly with interstitial edema. * Improved * Baseline O2 - 2L NC (5) Left leg cellulitis: Code(s): L03.116 - Cellulitis of left lower limb Status: Acute Assessment and Plan: * Monitor vital signs, I&Os, neuro status and patient is a fall risk * Monitor serum electrolytes, CBC, cultures, WBC and temp curve * Gentle IV fluids resuscitation Completed abx (6) Obstructive sleep apnea treated with BiPAP: Code(s): G47.33 - Obstructive sleep apnea (adult) (pediatric) Status: Chronic Assessment and Plan: * BiPAP will be provided for the patient to use while hospitalized (7) Chronic diastolic heart failure: Code(s): I50.32 - Chronic diastolic (congestive) heart failure Status: Chronic Assessment and Plan: * Echo 11/04/23: * LVH with overall good systolic function, hypokinesia is noted of the mid to apical septum and apex. * Sclerotic aortic valve which exhibits good leaflet separation. * Significant biatrial dilation. * Atrial fibrillation * Given 0.5mg Bumex given LE edema (although pt states this is baseline) * Monitor I/O and daily weight (8) Atrial fibrillation: Qualifiers: Atrial fibrillation type: unspecified Qualified Code(s): I48.91 - Unspecified atrial fibrillation Code(s): I48.91 - Unspecified atrial fibrillation Status: Chronic Assessment and Plan: * Rate controlled - Metoprolol * Continue Apixiban (dvt prophylaxis) (9) Chronic anticoagulation: Code(s): Z79.01 - intermission coordinator (current) use of anticoagulants Status: Chronic Assessment and Plan: * Continue Apixiban (10) Chronic kidney disease, stage 3: Code(s): N18.30 - Chronic kidney disease, stage 3 unspecified Status: Acute Assessment and Plan: * Renal function is stable on review of previous labs. * Cr 1.76, GFR 38, BUN 47 (baseline appears to be around 1.5) * resolved, Cr 1.53 Plan DVT prophylaxis on Eliquis awaiting placement Subjective Date/time seen: 11/18/24 17:04 Interval history: Patient is currently doing well. Pending placement Review of Systems Review of Systems: 12 systems were reviewed and are negativ e except for as per HPI. Exam Narrative: General: Moderately ill-appearing male sitting up in bed in no acute distress. Weight: 107.7 kg. BMI: 33.1. HEENT: PERRL, EOMI. Sclera anicteric. Conjunctiva mildly injected. Tacky mucous membranes. Neck: Supple. L no JVD or lymphadenopathy. Respiratory: Appears in no respiratory distress. Significant improvement compared to yesterday, no wheezing, crackles, or rhonchi and all lung herrera. Still baseline O2 requirement Cardiovascular: Irregularly regular rate rhythm. Soft murmur at the upper sternal border. Gastrointestinal: Abdomen is soft, obese, nontender, and nondistended with positive bowel sounds. Skin: Warm and dry. Chronic skin changes of the lower legs bilaterally. The left lower leg is erythematous and warm, concerning for cellulitis. Extremities: No cyanosis or clubbing. Bilateral lower extremity edema. Neurological: Alert and oriented. Cranial nerves 2-12 are grossly intact. No gross focal deficits to casual conversation. Psychiatric: Pleasant and cooperative with normal mood and affect. Objective Data Vital Signs Vital Signs: Vital Signs - 24 hr 11/17/24 20:15 11/17/24 20:22 11/17/24 20:29 Temperature Pulse Rate 61 61 Respiratory Rate 20 20 Blood Pressure Pulse Oximetry 97 95 Oxygen Delivery Nasal Cannula Nasal Cannula Oxygen Flow Rate 2 3 11/17/24 22:00 11/18/24 02:05 11/18/24 02:15 Temperature 98.2 F Pulse Rate 95 95 97 Respiratory Rate 18 20 22 H Blood Pressure 112/80 Pulse Oximetry 95 Oxygen Delivery Oxygen Flow Rate 11/18/24 06:00 11/18/24 08:00 11/18/24 08:18 Temperature 97.4 F L Pulse Rate 100 Respiratory Rate 18 Blood Pressure 121/68 Pulse Oximetry 95 99 99 Oxygen Delivery Nasal Cannula Nasal Cannula Oxygen Flow Rate 2 3 11/18/24 08:18 11/18/24 10:09 11/18/24 14:00 Temperature 97.8 F Pulse Rate 86 86 97 Respiratory Rate 24 H 22 H Blood Pressure 108/51 L Pulse Oximetry 99 Oxygen Delivery Oxygen Flow Rate 11/18/24 14:04 11/18/24 14:04 11/18/24 14:16 Temperature Pulse Rate 88 92 Respiratory Rate 24 H 24 H Blood Pressure Pulse Oximetry 98 Oxygen Delivery Nasal Cannula Oxygen Flow Rate 2 Intake/Output Intake/Output: Intake & Output 11/15/24 11/16/24 11/17/24 11/18/24 23:59 23:59 23:59 23:59 Intake Total 1260 1070 1790 720 Output Total 1000 1450 900 450 Balance 260 -380 890 270 Meds/Results Medications: Active Medications Generic Name Dose Route Start Last Admin Trade Name Freq PRN Reason Stop Dose Admin Acetaminophen 650 mg 11/05/24 23:56 11/18/24 10:17 Acetaminophen 325 Mg Tablet PO 650 mg Q4H PRN Administration Mild Pain (1-3) or Fever Acetylcysteine 200 mg 11/12/24 14:00 11/18/24 14:04 Acetylcysteine 20% Inhal Soln 800 Mg/4 Ml Vial INHALATION 200 mg Q6HRT ALEKSEY Administration Albuterol/Ipratropium 3 ml 11/06/24 08:00 11/18/24 14:04 Ipratropium 0.5 Mg/Albuterol Sulfate 2.5 Mg Ampul.Neb 3 Ml INHALATION 3 ml Q6HRT ALEKSEY Administration Apixaban 5 mg 11/06/24 09:00 11/18/24 10:09 Apixaban 5 Mg Tablet PO 5 mg Q12HR ALEKSEY Administration Aspirin 81 mg 11/06/24 21:00 11/17/24 21:36 Aspirin 81 Mg Enteric Tablet PO 81 mg HS ALEKSEY Administration Baclofen 10 mg 11/06/24 21:00 11/17/24 21:36 Baclofen 10 Mg Tablet BY MOUTH 10 mg QHS ALEKSEY Administration Benzocaine 1 lozenge 11/09/24 22:00 Benzocaine/Menthol (*Bkc) 18 Ea Lozenge PO PRN PRN Sore Throat Budesonide 0.5 mg 11/06/24 08:00 11/18/24 08:17 Budesonide Respule Neb 0.5 Mg/2 Ml Amp INHALATION 0.5 mg Q12HRT ALEKSEY Administration Bumetanide 0.5 mg 11/06/24 09:00 11/18/24 10:09 Bumetanide 0.5 Mg Tablet BY MOUTH 0.5 mg BID ALEKSEY Administration Dextrose 12.5 gm 11/06/24 00:39 Dextrose 50% 25 Gm/50 Ml Syringe IV PUSH PRN PRN Hypoglycemia Protocol Diclofenac Sodium 1 applic 11/06/24 05:01 11/10/24 08:26 Diclofenac Sodium 1% 100 Gm Gel (*Bkc) TOPICAL 1 applic QID PRN Administration Pain Ferrous Sulfate 325 mg 11/10/24 12:00 11/18/24 12:04 Ferrous Sulfate [address] PO 325 mg DAILY@1200 ALEKSEY Administration Fluconazole 200 mg 11/10/24 09:00 11/17/24 10:10 Fluconazole 100 Mg Tablet PO 200 mg WEEKLY ALEKSEY Administration Fluticasone Propionate 2 spray 11/06/24 09:00 11/18/24 10:10 Fluticasone Propionate 0.05% Na Spr 16 Gm Btl (*Bkc) NASAL 2 spray DAILY ALEKSEY Administration Folic Acid 0.4 mg 11/06/24 09:00 11/18/24 10:10 Folic Acid 0.4 Mg Tablet PO 0.4 mg DAILY ALEKSEY Administration Gabapentin 300 mg 11/06/24 09:00 11/18/24 10:08 Gabapentin 300 Mg Capsule PO 300 mg BID ALEKSEY Administration Glucagon 1 mg 11/06/24 00:39 Glucagon For Inj 1 Mg Vial IM PRN PRN Hypoglycemia Protocol Glucose 15 gm 11/06/24 00:39 Glucose Oral Gel 15 Gm Of Glucse In 37.5 Gm Tube PO PRN PRN Hypoglycemia Protocol Guaifenesin 1,200 mg 11/06/24 09:00 11/18/24 10:10 Guaifenesin 12 Hr 600 Mg Tabcr PO 1,200 mg Q12HR ALEKSEY Administration Hydrocortisone 1 applic 11/06/24 04:20 11/18/24 10:11 Hydrocortisone 1% 30 Gm Cream TOPICAL 1 applic DAILY PRN Administration itching Dextrose 1,000 mls @ 100 mls/hr 11/06/24 00:39 Dextrose 5% 1,000 Ml IVPB PRN PRN Hypoglycemia Protocol Lactobacillus Acidophilus 1 tablet 11/06/24 09:00 11/18/24 12:44 Acidophilus/Bulgaricus Chewable Tablet PO 1 tablet TID ALEKSEY Administration Lidocaine 1 patch 11/06/24 04:36 11/10/24 08:23 Lidocaine 5% Patch TRANSDERM 1 patch DAILY PRN Administration pain Loratadine 10 mg 11/06/24 09:00 11/18/24 10:09 Loratadine 10 Mg Tablet PO 10 mg QAM ALEKSEY Administration Magnesium Oxide 400 mg 11/09/24 17:00 11/18/24 12:04 Magnesium Oxide 400 Mg Tablet PO 400 mg BID@1200,1700 ALEKSEY Administration Metoprolol Succinate 50 mg 11/06/24 09:00 11/18/24 10:09 Metoprolol Succinate Ext Rel 50 Mg Tabcr PO 50 mg DAILY ALEKSEY Administration Multi-Ingred Cream/Lotion/Oil/Oint 1 applic 11/06/24 09:00 11/18/24 10:11 Eucerin Cream 120 Gm Jar TOPICAL 1 applic DAILY ALEKSEY Administration Pantoprazole Sodium 40 mg 11/06/24 09:00 11/18/24 10:09 Pantoprazole 40 Mg Tablet PO 40 mg Q12HR ALEKSEY Administration Pyridoxine HCl 100 mg 11/06/24 09:00 11/18/24 10:09 Pyridoxine Hcl 50 Mg Tablet PO 100 mg QAM ALEKSEY Administration Roflumilast 500 mcg 11/06/24 09:00 11/18/24 10:09 Roflumilast 500 Mcg Tablet PO 500 mcg DAILY ALEKSEY Administration Senna/Docusate Sodium 1 tab 11/08/24 21:00 11/17/24 21:36 Senna/Docusate Sodium Tablet PO 1 tab HS ALEKSEY Administration Spironolactone 12.5 mg 11/06/24 09:00 11/18/24 10:09 Spironolactone 12.5 Mg Tablet PO 12.5 mg DAILY ALEKSEY Administration Tamsulosin HCl 0.4 mg 11/06/24 21:00 11/17/24 21:35 Tamsulosin Hcl 0.4 Mg Capsule PO 0.4 mg HS ALEKSEY Administration Triamcinolone Acetonide 1 applic 11/06/24 09:00 11/18/24 10:13 Triamcinolone Acet 0.1% Cream 15 Gm Tube TOPICAL 1 applic DAILY ALEKSEY Administration Vitamin D 25 mcg 11/06/24 21:00 11/17/24 21:51 Cholecalciferol (Vitamin D3) 25 Mcg (1,000 Units) Tablet PO 25 mcg HS ALEKSEY Administration Radiology Results: ITS Impressions Chest X-Ray 11/09/24 15:31 Impression: 1: Cardiomegaly with interstitial edema. Chest CT 11/14/24 11:17 IMPRESSION: 1. New tree-in-bud opacities with bronchial wall thickening and mucous plugging in the and posterior basilar segment of the left lower lobe consistent with pneumonia. 2. Minimal bibasilar pulmonary edema and small left pleural effusion. 3. Chronic pericardial calcifications which could predispose towards constrictiv e pericarditis. Labs Labs: Laboratory Results - last 24 hr 11/18/24 06:31 WBC 11.8 H RBC 3.66 L Hgb 11.5 L Hct 36.1 L MCV 98.6 MCH 31.4 MCHC 31.9 L RDW 14.4 Plt Count 174 MPV 12.2 H Sodium 136 L Potassium 4.5 Chloride 98 Carbon Dioxide 30 Anion Gap 8 BUN 35 H Creatinine 1.61 H Estim Creat Clear Calc 44 Estimated GFR 42 L Glucose 116 H Calcium 9.6 Total Bilirubin 0.5 AST 39 ALT 35 Alkaline Phosphatase 180 H Total Protein 6.8 Albumin 3.6 Quality VTE Prophylaxis VTE prophylaxis: pharmacologic ordered (on apixaban) Hospitalist MIPS Advance Care Plan I have confirmed that the patient's Advanced Care Plan is present, code status is documented, or surrogate decision maker is listed in patient medical record.: Yes Medication Reconciliation I have utilized all available resources to obtain, update and review the patients current medications (includes all prescriptions, OTC, herbals, cannabis, and nutritional supplements).: Yes
[2024-11-18] MEDS: CHOLECALCIFEROL (VITAMIN D3) 25 MCG (1,000 UNITS) TABLET PO (22:00)
[2024-11-18] MEDS: ASPIRIN 81 MG ENTERIC TABLET PO (22:00)
[2024-11-18] MEDS: TAMSULOSIN HCL 0.4 MG CAPSULE PO (22:01)
[2024-11-18] MEDS: BACLOFEN 10 MG TABLET BY MOUTH (22:01)
[2024-11-18] MEDS: SENNA/DOCUSATE SODIUM TABLET 1 TAB PO (22:02)
[2024-11-19] VITALS (9 sets, daily range): BP systolic 121; BP diastolic 70; PULSE 73–87; RESP 18–20; TEMP 37.1; O2SAT 97–98
[2024-11-19] MEDS: IPRATROPIUM 0.5 MG/ALBUTEROL SULFATE 2.5 MG AMPUL.NEB 3 ML INHALATION ×3 (02:21→13:57)
[2024-11-19] MEDS: ACETYLCYSTEINE 20% INHAL SOLN 800 MG/4 ML VIAL 200 MG INHALATION ×3 (02:21→13:57)
[2024-11-19 05:40] LABS: Hematocrit 35.4 % (42.0-52.0); Hemoglobin 10.7 g/dL (14.0-18.0); Mean Corpuscular HGB Conc 30.2 g/dl (32-36); Mean Corpuscular Hemoglobin 30.4 pg (26-34); Mean Corpuscular Volume 100.6 fl (80-100); Mean Platelet Volume 12.2 fl (7.4-10.4); Platelet Count Result 167 k/mm3 (150-375); Red Blood Count 3.52 M/mm3 (4.6-6.20); Red Cell Distribution Width 14.5 % (11.5-14.5); White Blood Count 11.2 K/mm3 (4.5-10.0)
[2024-11-19 05:54] LABS: Alanine Aminotransferase 34 U/L (6-50); Albumin Level 3.4 g/dL (3.5-5.1); Alkaline Phosphatase 155 U/L (38-126); Anion Gap 4 mmol/L (4-12); Aspartate Amino Transferase 45 U/L (17-59); Bilirubin,Total 0.5 mg/dL (0.2-1.3); Blood Urea Nitrogen 38 mg/dL (9-20); Calcium 9.1 mg/dL (8.4-10.2); Carbon Dioxide 31 mmol/L (22-30); Chloride 101 mmol/L (98-107); Estimated CRCL calculation 41 ml/min; Estimated Glomerular Filt Rate 39; Glucose 100 mg/dL (65-110); Potassium 4.6 mmol/L (3.4-5.0); Sodium 136 mmol/L (137-145); Total Protein 6.4 g/dL (6.3-8.2)
[2024-11-19 06:30] LABS: Glucose Point of Care 140 mg/dl (65-105)
[2024-11-19] MEDS: BUDESONIDE RESPULE NEB 0.5 MG/2 ML AMP INHALATION (08:17)
[2024-11-19] MEDS: ACIDOPHILUS/BULGARICUS CHEWABLE TABLET 1 TABLET PO ×2 (08:51→12:41)
[2024-11-19] MEDS: APIXABAN 5 MG TABLET PO (08:51)
[2024-11-19] MEDS: PYRIDOXINE HCL 50 MG TABLET 100 MG PO (08:51)
[2024-11-19] MEDS: LORATADINE 10 MG TABLET PO (08:51)
[2024-11-19] MEDS: FOLIC ACID 0.4 MG TABLET PO (08:51)
[2024-11-19] MEDS: guaiFENesin 12 HR 600 MG TABCR 1200 MG PO (08:51)
[2024-11-19] MEDS: GABAPENTIN 300 MG CAPSULE PO (08:51)
[2024-11-19] MEDS: PANTOPRAZOLE 40 MG TABLET PO (08:52)
[2024-11-19] MEDS: ROFLUMILAST 500 MCG TABLET PO (08:52)
[2024-11-19] MEDS: SPIRONOLACTONE 12.5 MG TABLET PO (08:52)
[2024-11-19] MEDS: FLUTICASONE PROPIONATE 0.05% NA SPR 16 GM BTL (*BKC) 2 SPRAY NASAL (08:52)
[2024-11-19] MEDS: TRIAMCINOLONE ACET 0.1% CREAM 15 GM TUBE 1 APPLIC TOPICAL (08:52)
[2024-11-19] MEDS: BUMETANIDE 0.5 MG TABLET BY MOUTH (08:52)
[2024-11-19] MEDS: METOPROLOL SUCCINATE EXT REL 50 MG TABCR PO (08:52)
[2024-11-19] MEDS: EUCERIN CREAM 120 GM JAR 1 APPLIC TOPICAL (08:52)
[2024-11-19] MEDS: ACETAMINOPHEN 325 MG TABLET 650 MG PO (09:00)
--- NOTE | 2024-11-19 10:59 | P.DS_ITS ---
DS: Admitting Diagnosis Discharge Date 11/19/2024 Admitting Diagnosis Shortness of breath. DS: Discharge Diagnosis Discharge Diagnosis (1) Acute exacerbation of chronic obstructive pulmonary disease: Code(s): J44.1 - Chronic obstructive pulmonary disease with (acute) exacerbation Status: Acute Assessment and Plan: * Monitor vital signs, I&Os, neuro status and patient is a fall risk * Monitor serum electrolytes, cultures and CBC * Monitor Oxygen saturation, Oxygen via NC; at baseline * Sputum culture + repeat negative * Continue Duonebz q6H * Completed Cefdinir, Linezolid monitor (2) Pneumonia: Qualifiers: Laterality: bilateral Lung location: unspecified part of lung Pneumonia type: due to unspecified organism Qualified Code(s): J18.9 - Pneumonia, unspecified organism Code(s): J18.9 - Pneumonia, unspecified organism Status: Acute Assessment and Plan: * CXR: Pulmonary opacities may represent edema, respiratory bronchiolitis, or atypical infection. Small left pleural effusion versus chronic pleural blunting. * started on CAP tx: azithromycin & ceftriaxone * Viral PCR: negative for Flu/COVID/RSV * Ordered legionella, mycoplasma and pneumococcal * Monitor vital signs, I&Os, neuro status and patient is a fall risk * Follow WBC, serum electrolytes, temperature curves and cultures * Sputum culture showed contaminated, repeat * Gentle IV fluid resuscitation completed abx (3) MRSA nasal colonization: Code(s): Z22.322 - Carrier or suspected carrier of Methicillin resistant Staphylococcus aureus Status: Acute Assessment and Plan: * Nasal MRSA + * Initiate IV Vancomycin * Monitor BCs-preliminary results showed no growth Completed abx (4) Chronic hypoxic respiratory failure, on home oxygen therapy: Code(s): J96.11 - Chronic respiratory failure with hypoxia; Z99.81 - Dependence on supplemental oxygen Status: Acute Assessment and Plan: * Symptoms: SOB * SpO2: 98% * Oxygen supplementation: 3L NC * EKG: Afib w/ ventricular premature complex * Chest XR: Pulmonary opacities may represent edema, respiratory bronchiolitis, or atypical infection. Small left pleural effusion versus chronic pleural blunting. * Repeat CXR on 11/09: Cardiomegaly with interstitial edema. * Improved * Baseline O2 - 2L NC (5) Left leg cellulitis: Code(s): L03.116 - Cellulitis of left lower limb Status: Acute Assessment and Plan: * Monitor vital signs, I&Os, neuro status and patient is a fall risk * Monitor serum electrolytes, CBC, cultures, WBC and temp curve * Gentle IV fluids resuscitation Completed abx (6) Obstructive sleep apnea treated with BiPAP: Code(s): G47.33 - Obstructive sleep apnea (adult) (pediatric) Status: Chronic Assessment and Plan: * BiPAP will be provided for the patient to use while hospitalized (7) Chronic diastolic heart failure: Code(s): I50.32 - Chronic diastolic (congestive) heart failure Status: Chronic Assessment and Plan: * Echo 11/04/23: * LVH with overall good systolic function, hypokinesia is noted of the mid to apical septum and apex. * Sclerotic aortic valve which exhibits good leaflet separation. * Significant biatrial dilation. * Atrial fibrillation * Given 0.5mg Bumex given LE edema (although pt states this is baseline) * Monitor I/O and daily weight (8) Atrial fibrillation: Qualifiers: Atrial fibrillation type: unspecified Qualified Code(s): I48.91 - Unspecified atrial fibrillation Code(s): I48.91 - Unspecified atrial fibrillation Status: Chronic Assessment and Plan: * Rate controlled - Metoprolol * Continue Apixiban (dvt prophylaxis) (9) Chronic anticoagulation: Code(s): Z79.01 - rn long term care (current) use of anticoagulants Status: Chronic Assessment and Plan: * Continue Apixiban (10) Chronic kidney disease, stage 3: Code(s): N18.30 - Chronic kidney disease, stage 3 unspecified Status: Acute Assessment and Plan: * Renal function is stable on review of previous labs. * Cr 1.76, GFR 38, BUN 47 (baseline appears to be around 1.5) * resolved, Cr 1.53 DS: Summary Hospital Course Hospital Course: 73-year-old male with multiple medical problems including chronic hypoxic respiratory failure on home oxygen, heart failure with preserved ejection fraction, coronary artery disease, hypertension, atrial fibrillation on chronic anticoagulation, obstructive sleep apnea on BiPAP, ulcerative colitis, cirrhosis, chronic kidney disease, chronic anemia, benign prostatic hyperplasia, diet-controlled diabetes, MRSA bacteremia, and other comorbidities who presented to the emergency department via private vehicle with complaints of shortness of breath. He began to feel unwell yesterday afternoon while at physical therapy with symptoms to include wheezing, shortness of breath, productive cough which he is unable to describe, and generalized malaise. He has chronic lower extremity edema which is unchanged but he has noticed that the left leg seems to be increasingly red from baseline. He denies fever, sinus congestion, sore thro at, chest pain, pleuritic pain, orthopnea, vomiting, diarrhea, and dysuria. His and son had similar symptoms last week and his son was treated for pneumonia. In the ED: He was afebrile on arrival with stable vital signs. Labs were significant for WBC count of 8.2, hemoglobin 12.7, BUN 40, creatinine 1.85, glucose 124, proBNP 3700. He tested negative for influenza, RSV, and COVID. Nasal MRSA screen was positive. Chest x-ray showed pulmonary opacities which may represent edema, respiratory bronchiolitis, or atypical infection. Small left pleural effusion versus chronic pleural blunting noted. He was given a continuous nebulizer treatment and methylprednisolone with some improvement. He was also started on azithromycin ceftriaxone for suspected pneumonia and he is being admitted in this setting for further treatment. During hospitalization patient is treated for COPD,PNA,Cellulitis,CHF Patient completed the course cefdinir and linezolid for COPD exacerbation. Nasal MRSA is positive but BC culture. Leg leg cellulitis resolved . On the day of discharge, the patient was seen and examined. Vital signs were stable. Physical exam were stable and labs were reviewed at length. Discharge instructions, medications, and follow-up appointments were discussed with the patient at length and all day questions were answered. ER warnings were given. Status at Discharge Cognitive/behavioral status at discharge: Stable Time Spent with Patient Time attestation: Total time spent providing and/or coordinating discharge services: 45 minutes Exam Narrative: General: Moderately ill-appearing male sitting up in bed in no acute distress. Weight: 107.7 kg. BMI: 33.1. HEENT: PERRL, EOMI. Sclera anicteric. Conjunctiva mildly injected. Tacky mucous membranes. Neck: Supple. L no JVD or lymphadenopathy. Respiratory: Appears in no respiratory distress. Significant improvement compared to yesterday, no wheezing, crackles, or rhonchi and all lung herrera. Still baseline O2 requirement Cardiovascular: Irregularly regular rate rhythm. Soft murmur at the upper sternal border. Gastrointestinal: Abdomen is soft, obese, nontender, and nondistended with positive bowel sounds. Skin: Warm and dry. Chronic skin changes of the lower legs bilaterally. The left lower leg is erythematous and warm, concerning for cellulitis. Extremities: No cyanosis or clubbing. Bilateral lower extremity edema. Neurological: Alert and oriented. Cranial nerves 2-12 are grossly intact. No gross focal deficits to casual conversation. Psychiatric: Pleasant and cooperative with normal mood and affect. DS: Data Data Completed and Pending Labs on day of discharge: Labs from last 24 hours 11/19/24 11/18/24 05:20 21:26 WBC 11.2 H RBC 3.52 L Hgb 10.7 L Hct 35.4 L MCV 100.6 H MCH 30.4 MCHC 30.2 L RDW 14.5 Plt Count 167 MPV 12.2 H Sodium 136 L Potassium 4.6 Chloride 101 Carbon Dioxide 31 H Anion Gap 4 BUN 38 H Creatinine 1.70 H Estim Creat Clear Calc 41 Estimated GFR 39 L Glucose 100 POC Capillary Glucose 140 H Calcium 9.1 Total Bilirubin 0.5 AST 45 ALT 34 Alkaline Phosphatase 155 H Total Protein 6.4 Albumin 3.4 L Imaging Radiologist's impression: ITS Impressions Chest X-Ray 11/05/24 20:15 IMPRESSION: Pulmonary opacities may represent edema, respiratory bronchiolitis, or atypical infection. Small left pleural effusion versus chronic pleural blunting. Chest X-Ray 11/09/24 15:31 Impression: 1: Cardiomegaly with interstitial edema. Chest CT 11/14/24 11:17 IMPRESSION: 1. New tree-in-bud opacities with bronchial wall thickening and mucous plugging in the and posterior basilar segment of the left lower lobe consistent with pneumonia. 2. Minimal bibasilar pulmonary edema and small left pleural effusion. 3. Chronic pericardial calcifications which could predispose towards constrictive pericarditis. Discharge Plan Discharge Attending physician on discharge: Robert Cordova Consulting providers: Dustin Wilkins Discharging Clinician: Robert Cordova Anticipated Discharge Date/Time: 11/19/24 11:08 Patient Disposition: [facility] Nursing Home/Asst Living Activity: as tolerated Diet: heart healthy Discharge Instructions: Check blood pressure 1 to 2 times a day. Record and bring into your doctor for review. Call your doctor if your blood pressure is greater than 180/110 or less than 90/45. Walk with cane or other assist device. Take precautions to avoid falls. Rise slowly from a lying or sitting position. Pause before standing or walking. Contact your doctor or call 911 and come to the Emergency Room if you have any type of trauma, lightheadedness with standing or other worrisome symptoms. Avoid NSAIDs (ibuprofen, naproxen, Aleve). Tylenol is safe to take. Follow-up with your primary care provider in 1-2 weeks. Please call for appointment. Follow-up with Cardiology in 2-4 weeks. Please call for an appointment. Thank you for using [facility] for your health care needs. Patient Instructions: Apixaban (By mouth), Heart Failure (DC), Antibiotic Form Patient Language: Sinhala Stand Alone Forms: General Discharge Information Discharge Medications: Continued acetaminophen 325 mg capsule 650 mg PO Q4H PRN (Reason: Pain) cholecalciferol (vitamin D3) 25 mcg (1,000 unit) capsule 25 mcg PO HS folic acid 400 mcg tablet 0.4 mg PO DAILY (DME) nebulizer accessories Kit See Rx Instructions .Route Qty: 3 3RF Rx Instructions: As directed aspirin 81 mg tablet,delayed release (DR/EC) 81 mg PO HS (DME) Aerochamber MV Spacer See Rx Instructions .Route Qty: 10 0RF Rx Instructions: As directed pyridoxine (vitamin B6) 100 mg tablet 100 mg PO DAILY magnesium oxide 400 mg magnesium capsule 400 mg PO BID omeprazole 40 mg capsule,delayed release(DR/EC) 40 mg PO DAILY benzonatate 200 mg capsule 200 mg PO TID PRN (Reason: cough) baclofen 10 mg tablet See Rx Instructions .ROUTE .COMPLEX Qty: 90 1RF Dose Instruction: TAKE 1 TABLET (10MG) BY MOUTH EVERY DAY AT BEDTIME Rx Instructions: TAKE 1 TABLET (10MG) BY MOUTH EVERY DAY AT BEDTIME spironolactone 25 mg tablet 12.5 mg PO DAILY Qty: 45 3RF Eliquis 5 mg tablet 5 mg PO BID Qty: 180 1RF Rx Instructions: TAKE 1 TABLET BY MOUTH TWICE A DAY metoprolol succinate 50 mg tablet extended release 24 hr 50 mg PO DAILY Qty: 180 3RF budesonide 0.5 mg/2 mL suspension for nebulization 0.5 mg inhalation BID ipratropium-albuterol 0.5 mg-3 mg(2.5 mg base)/3 mL solution for nebulization 3 ml inhalation Q6H ferrous sulfate 324 mg (65 mg iron) Tablet,Delayed Release (Dr/Ec) 324 mg PO DAILY tamsulosin [Flomax] 0.4 mg Capsule 0.4 mg PO HS cetirizine 10 mg Tablet 10 mg PO Q12H gabapentin 300 mg Capsule 300 mg PO BID fluticasone propionate [Allergy Relief (fluticasone)] 50 mcg/actuation Campbell,Suspension 2 spray intranasal DAILY lidocaine [Lidocaine Pain Relief] 4 % adhesive patch,medicated 1 patch topical DAILY PRN (Reason: pain) triamcinolone acetonide 0.1 % cream 1 applic topical DAILY hydrocortisone [Anti-Itch (HC)] 1 % cream 1 applic topical DAILY PRN (Reason: itching) diclofenac sodium 3 % gel 1 applic topical ONCE PRN (Reason: pain) Eucerin Cream 1 applic topical DAILY Lactobacillus acidophilus 1 tablet PO TID fluconazole [Diflucan] 200 mg tablet 200 mg PO WEEKLY Rx Instructions: Last dose scheduled 11/10 roflumilast [Daliresp] 500 mcg tablet 500 mcg PO DAILY 90 Days Qty: 90 3RF Rx Instructions: TAKE 1 TABLET BY MOUTH EVERY DAY bumetanide 0.5 mg tablet See Rx Instructions .ROUTE .COMPLEX Qty: 180 1RF Dose Instruction: TAKE 1 TABLET BY MOUTH TWICE A DAY Rx Instructions: TAKE 1 TABLET BY MOUTH TWICE A DAY Discontinued doxycycline hyclate 100 mg capsule 100 mg PO DAILY Qty: 90 3RF Date of admission: 11/06/24 11:24 Primary Care Provider: Cleo Funk Admitting Provider: Jitendra Palomares Attending physician on admission: Jitendra Palomares Condition: Stable
[2024-11-19] MEDS: FERROUS SULFATE 325 MG TABLET DR PO (12:41)
[2024-11-19] MEDS: MAGNESIUM OXIDE 400 MG TABLET PO (12:41)
--- NOTE | 2024-11-19 14:49 | PC.NURSE ---
Attempt made to call report to receiving facility. They were unable to locate nurse. To call back.
== END 2024-11-19 16:00 | DRG 193 ==
LOC: ANHED 23:56 → ANH3MED 11-06 00:30
PROVIDERS: Emergency Medicine; Physician Assistant; Admitting Provider Internal Medicine; Emergency Provider Physician Assistant; PCP Family Medicine; Visit Provider General Practice
DX: J18.9 Pneumonia, unspecified organism (principal); J96.21 Acute and chronic respiratory failure with hypoxia; J44.1 Chronic obstructive pulmonary disease with (acute) exacerbation; I50.32 Chronic diastolic (congestive) heart failure; I48.20 Chronic atrial fibrillation, unspecified; L03.116 Cellulitis of left lower limb; I13.0 Hypertensive heart and chronic kidney disease with heart failure and stage 1 through stage 4 chronic kidney disease, or unspecified chronic kidney disease; J44.0 Chronic obstructive pulmonary disease with (acute) lower respiratory infection; I25.10 Atherosclerotic heart disease of native coronary artery without angina pectoris; N18.30 Chronic kidney disease, stage 3 unspecified; G47.33 Obstructive sleep apnea (adult) (pediatric); D50.9 Iron deficiency anemia, unspecified; E11.22 Type 2 diabetes mellitus with diabetic chronic kidney disease; K21.9 Gastro-esophageal reflux disease without esophagitis; K75.81 Nonalcoholic steatohepatitis (NASH); N40.0 Benign prostatic hyperplasia without lower urinary tract symptoms; Z99.81 Dependence on supplemental oxygen; Z22.322 Carrier or suspected carrier of Methicillin resistant Staphylococcus aureus; Z79.01 Long term (current) use of anticoagulants; Z86.718 Personal history of other venous thrombosis and embolism; Z87.891 Personal history of nicotine dependence; E66.9 Obesity, unspecified; Z68.32 Body mass index [BMI] 32.0-32.9, adult; Z86.73 Personal history of transient ischemic attack (TIA), and cerebral infarction without residual deficits; Z96.643 Presence of artificial hip joint, bilateral
CPT/HCPCS: 36415; 36600; 71045; 71046; 71250; 80053; 80202; 82375; 82565; 82805; 82948; 83050; 83735; 83880; 84145; 84484; 85018; 85025; 85027; 86738; 87040; 87070; 87205; 87449; 87637; 87641; 87899; 93005; 94640; 94667; 94668; 96365; 96367; 96375; 96376; 97110; 97116; 97162; 97165; 97530; 97535; 99285; A9270; G0378; J0456; J0696; J1815; J2919; J3370

== ENCOUNTER 2025-04-09 15:15 | Emergency (ER) | payer MEDICARE, SELFPAY ==
--- NOTE | 2025-04-09 15:18 | ED.SKABFB ---
HPI - Skin/Abscess/Foreign Bdy General Chief complaint: Skin/Abscess/Foreign Body Stated complaint: Cyst on Jaw Time Seen by Provider: 04/09/25 15:18 Source: patient Mode of arrival: ambulatory Limitations: no limitations History of Present Illness HPI narrative: Mason is a 74-year-old male patient presenting to the clinic today with complaints of a possible abscess/cyst to the right cheek. He reports symptom been going on x 2-3 days. states it started as a pimple and has gotten bigger in size. No fever, chills, or body aches. History of MRSA. Patient is taking Eliquis. Is taking doxycycline for the rest of his life for history of MRSA infections. History of AFib, congestive heart failure, CVA, chronic kidney disease, hypertension, DVT, COPD, and anemia. Related Data Home Medications ?Medication ?Instructions ?Recorded ?Confirmed ?Last Taken ?Type ferrous sulfate 324 mg (65 mg 324 mg PO DAILY 04/05/19 03/13/25 11/05/24 History iron) tablet,delayed release tamsulosin 0.4 mg capsule (Flomax) 0.4 mg PO HS 04/05/19 03/13/25 11/05/24 History aspirin 81 mg tablet,delayed 81 mg PO HS 05/21/19 03/13/25 11/05/24 History release cetirizine 10 mg tablet 10 mg PO Q12H 08/04/19 03/13/25 11/05/24 History magnesium oxide 400 mg PO BID 03/04/21 03/13/25 11/05/24 History cholecalciferol (vitamin D3) 25 25 mcg PO HS 03/03/23 03/13/25 11/05/24 History mcg (1,000 unit) capsule folic acid 400 mcg tablet 0.4 mg PO DAILY 08/23/23 03/13/25 11/05/24 History omeprazole 40 mg capsule,delayed 40 mg PO DAILY 12/27/23 03/13/25 11/05/24 History release gabapentin 300 mg capsule 300 mg PO BID 01/19/24 03/13/25 11/05/24 History benzonatate 200 mg capsule 200 mg PO TID PRN cough 05/14/24 03/13/25 Unknown History diclofenac sodium 3 % topical gel 1 applic topical ONCE PRN pain 05/20/24 03/13/25 Unknown History hydrocortisone 1 % topical cream 1 applic topical DAILY PRN itching 05/20/24 03/13/25 Unknown History (Anti-Itch (hydrocortisone)) lanolin alcohols-mineral 1 applic topical DAILY 05/20/24 03/13/25 11/05/24 History oil-w.petrolatum-ceresin topical cream (Eucerin topical cream) lidocaine 4 % topical patch 1 patch topical DAILY PRN pain 05/20/24 03/13/25 Unknown History (Lidocaine Pain Relief) triamcinolone acetonide 0.1 % 1 applic topical DAILY 05/20/24 03/13/25 11/05/24 History topical cream budesonide 0.5 mg/2 mL suspension 0.5 mg inhalation BID 10/08/24 03/13/25 11/05/24 History for nebulization ipratropium 0.5 mg-albuterol 3 mg 3 ml inhalation Q6H 10/08/24 03/13/25 11/05/24 History (2.5 mg base)/3 mL nebulization soln Lactobacillus acidophilus 1 tablet PO TID 11/06/24 03/13/25 11/05/24 History hydroxyzine HCl 25 mg tablet 25 mg PO BID PRN 12/06/24 03/13/25 Unknown History pyridoxine (vitamin B6) 100 mg 50 mg PO DAILY 12/06/24 03/13/25 Unknown History tablet acetaminophen 500 mg capsule mg PO 03/14/25 Unknown History (Mapap (acetaminophen)) albuterol sulfate 2.5 mg/3 mL mg inhalation PRN 03/14/25 Unknown History (0.083 %) solution for nebulization doxycycline hyclate 100 mg capsule mg PO 03/14/25 Unknown History dupilumab 300 mg/2 mL subcutaneous 300 mg subcut WEEKLY 03/14/25 Unknown History pen injector (Dupixent) Allergies Allergy/AdvReac Type Severity Reaction Status Date / Time clindamycin Allergy Intermediate Rash Verified 03/14/25 15:02 levofloxacin Allergy Intermediate Swelling Verified 03/14/25 15:02 of the Eye Penicillins Allergy Intermediate Hives Verified 03/14/25 15:02 scopolamine Allergy Mild Hallucinati Verified 03/14/25 15:02 ng tobramycin Allergy Mild EYE REDNESS Verified 03/14/25 15:02 pepper (genus Capsicum) AdvReac Intermediate Nausea and Verified 03/14/25 15:02 Vomiting dust mites Allergy Swelling Uncoded 03/14/25 15:02 cats AdvReac Mild REDNESS OF Uncoded 03/14/25 15:02 THE EYES/WATERING Review of Systems Review of Systems: Pertinent positives per HPI. Patient denies any fever, chills, rash, headache, visual changes, dizziness, cough, runny nose, sore throat, shortness of breath, chest pain, palpitations, nausea, vomiting, diarrhea, constipation, abdominal pain, or any urinary issues. [facility] Past Medical History Medical History Chronic hypoxic respiratory failure, on home oxygen therapy Chronic kidney disease, stage 3 Chronic anemia Liver cirrhosis secondary to nonalcoholic steatohepatitis (RAYGOZA) Methicillin resistant Staphylococcus aureus infection The patient had a spinal abscess L1-L2 complicated was septicemia and then had 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 On long-term doxycycline. Chronic venous stasis dermatitis of both lower extremities Duodenal ulcer Iron (Fe) deficiency anemia Chronic anticoagulation Deep venous thrombosis Cerebrovascular accident Gastroesophageal reflux disease Chronic obstructive pulmonary disease Benign prostatic hyperplasia Obstructive sleep apnea treated with BiPAP with bleed in oxygen of 2 L Paroxysmal atrial fibrillation Obesity (BMI 30-39.9) Eczema Chronic diastolic heart failure Echocardiogram 10/2023 demonstrated EF of 60-65% grade 1 diastolic dysfunction, atrial fibrillation, by atrial enlargement difficult study Pneumothorax on left Surgical History Surgical History History of cataract extraction with lens replacement History of bilateral hip replacements History of colonoscopy with polypectomy History of tracheostomy Status post excision of lipoma Neck. History of back surgery History of revision of total replacement of hip joint Family History Family History Mother Family history of cardiovascular disease Family history of coronary artery disease Father Family history of liver disease Sibling Hypertension Cerebrovascular accident Chronic obstructive pulmonary disease Social History Social History Social History: Surrogate medical decision maker: Trinity Keys (Cathy), spouse. Code status: Full code. Smoking packs per day: 1 Smoking cigarettes per day: 20.0 Years smoked: 9 Smoking pack-years: 9.00 Tobacco type: cigarettes Smokeless tobacco user: chewing tobacco Smoking end date: 06/06/81 Additional smoking assessment comments: He quit smoking when he was told he had COPD. Alcohol intake: current Substance use: never Substance use type: does not use Other substance usage details: Holidays Do You Feel Safe in your Home?: Yes Lack of Transportation: No Lack of Food: Never True Current Housing: I Have Housing Concerned About Future Housing: No Difficulty Paying Gas/Electric Bills: No Difficulty Paying for Meds: No Currently Unemployed: No Education: Bachelor's Degree Difficulty w/ Childcare or Family Care: No Living arrangements: with family Additional living arrangements comments: Lives with spouse in [place]. They have been since 1973. They have a daughter and a son. Occupation/Education: retired Additional occupation/education comments: Retired from [employer]. [place] [employer] . Spiritual care concerns: No Agree to blood products: Yes Comments At the time of my signature, I reviewed and agree with the nursing past medical, surgical, social, and family history. There is no relevant family history pertinent to the patient complaint. Exam Narrative: General: Well-developed, well nourished, in no apparent distress Head: Normocephalic, atraumatic. Cardio: Regular rate and rhythm, s1 and s2 normal, no murmur appreciated. Resp: Clear to auscultation bilaterally, no rhonchi, rales, wheezing or rubs. Integumentary: [place], warm, and dry, 4 x 4 cm indurated mildly fluctuant abscess to the right cheek, tenderness to palpation with mild redness Course Course Emergency Course: Portions of this record may have been created with voice recognition software. Level of Care: Express Care Visit Vital Signs Vital signs: Vital signs reviewed Transfer Transfered to: [place] Transportation: Other (Private car) Transfer rationale: abscess to right cheek- Hx of MRSA. On blood thinners Accepting physician: Dr. Rodríguez Transfer comments: Private car MDM - Skin/Abscess/Foreign Bdy MDM Narrative Medical decision making narrative: At the time of visit patient is resting comfortably on the exam table. Patient appears to be nontoxic. Complaints of a possible abscess/cyst to the right cheek. He reports symptom been going on x 2-3 days. states it started as a pimple and has gotten bigger in size. No fever, chills, or body aches. History of MRSA. Patient is taking Eliquis. Is taking doxycycline for the rest of his life for history of MRSA infections. History of AFib, congestive heart failure, CVA, chronic kidney disease, hypertension, DVT, COPD, and anemia. On exam patient has a 4 x 4 cm indurated mildly fluctuant abscess to the right cheek, tenderness to palpation with mild redness Plan: I suspect patient has a right cheek abscess. Patient taking doxycycline daily and is allergic to clindamycin. History of chronic kidney disease. Shared decision making performed. Explained to the patient and spouse that since the patient is on the blood thinner I do not recommend drainage of the abscess in the clinic may try oral antibiotics-Bactrim and follow-up with PCP/general surgery. Second option would be to go to the emergency room for further evaluation and determine if IV antibiotics is necessary. Patient's reports he does have a history of sepsis and she would prefer to go to the emergency room for further evaluation. would like to go to [facility]. Contacted Dr. Rodríguez at [facility] and she accepts patient for transfer. Patient's to drive. Differential Diagnosis Differential diagnosis: Likely abscess of skin or subcutaneous tissue and other (cyst) Discharge Plan Discharge Clinical Impression: Abscess of face, History of MRSA infection, Anticoagulant long-term use Patient Disposition: Acute Care Hospital Condition: Stable Patient Language: Lao Prescriptions: No Action cholecalciferol (vitamin D3) 25 mcg (1,000 unit) capsule 25 mcg PO HS folic acid 400 mcg tablet 0.4 mg PO DAILY (DME) nebulizer accessories Kit See Rx Instructions .Route Qty: 3 3RF Rx Instructions: As directed doxycycline hyclate 100 mg capsule PO albuterol sulfate 2.5 mg /3 mL (0.083 %) solution for nebulization inhalation PRN acetaminophen [Mapap (acetaminophen)] 500 mg capsule PO Dupixent Pen 300 mg/2 mL pen injector 300 mg subcut WEEKLY Patient Comments: Every 2 weeks fluticasone propionate [Allergy Relief (fluticasone)] 50 mcg/actuation spray,suspension 2 spray intranasal DAILY Qty: 48 3RF hydroxyzine HCl 10 mg tablet 10 mg PO TID PRN (Reason: itching) Qty: 90 2RF Rx Instructions: Breakfast, lunch and dinner. baclofen 10 mg tablet See Rx Instructions .ROUTE .COMPLEX Qty: 90 1RF Dose Instruction: TAKE 1 TABLET (10MG) BY MOUTH EVERY DAY AT BEDTIME Rx Instructions: TAKE 1 TABLET (10MG) BY MOUTH EVERY DAY AT BEDTIME pyridoxine (vitamin B6) 100 mg tablet 50 mg PO DAILY hydroxyzine HCl 25 mg tablet 25 mg PO BID PRN hydrocodone-acetaminophen 5-325 mg tablet 1 tablet PO QHS Qty: 30 0RF aspirin 81 mg tablet,delayed release (DR/EC) 81 mg PO HS (DME) Aerochamber MV Spacer See Rx Instructions .Route Qty: 10 0RF Rx Instructions: As directed magnesium oxide 400 mg magnesium capsule 400 mg PO BID omeprazole 40 mg capsule,delayed release(DR/EC) 40 mg PO DAILY benzonatate 200 mg capsule 200 mg PO TID PRN (Reason: cough) spironolactone 25 mg tablet 12.5 mg PO DAILY Qty: 45 3RF metoprolol succinate 50 mg tablet extended release 24 hr 50 mg PO DAILY Qty: 180 3RF budesonide 0.5 mg/2 mL suspension for nebulization 0.5 mg inhalation BID ipratropium-albuterol 0.5 mg-3 mg(2.5 mg base)/3 mL solution for nebulization 3 ml inhalation Q6H ferrous sulfate 324 mg (65 mg iron) Tablet,Delayed Release (Dr/Ec) 324 mg PO DAILY tamsulosin [Flomax] 0.4 mg Capsule 0.4 mg PO HS cetirizine 10 mg Tablet 10 mg PO Q12H gabapentin 300 mg Capsule 300 mg PO BID lidocaine [Lidocaine Pain Relief] 4 % adhesive patch,medicated 1 patch topical DAILY PRN (Reason: pain) triamcinolone acetonide 0.1 % cream 1 applic topical DAILY hydrocortisone [Anti-Itch (HC)] 1 % cream 1 applic topical DAILY PRN (Reason: itching) diclofenac sodium 3 % gel 1 applic topical ONCE PRN (Reason: pain) Eucerin Cream 1 applic topical DAILY Lactobacillus acidophilus 1 tablet PO TID Eliquis 5 mg tablet 5 mg PO BID Qty: 180 1RF Rx Instructions: TAKE 1 TABLET BY MOUTH TWICE A DAY bumetanide 0.5 mg tablet See Rx Instructions .ROUTE .COMPLEX Qty: 180 1RF Dose Instruction: TAKE 1 TABLET BY MOUTH TWICE A DAY Rx Instructions: TAKE 1 TABLET BY MOUTH TWICE A DAY roflumilast 500 mcg tablet See Rx Instructions .ROUTE .COMPLEX Qty: 90 3RF Dose Instruction: TAKE 1 TABLET BY MOUTH EVERY DAY Rx Instructions: TAKE 1 TABLET BY MOUTH EVERY DAY Follow-up/Referrals: Cleo Funk DO [Primary Care Provider, [facility]] Time of Disposition: 15:30 Quality NIHSS Nursing Documentation ED NIHSS nursing documentation: reviewed/agree
[2025-04-09 15:23] VITALS: BP 110/63; PULSE 74; RESP 16; TEMP 36.1; O2SAT 100
== END 2025-04-09 15:35 | disposition short-term general hospital (02) ==
PROVIDERS: Emergency Provider Nurse Practitioner Family; PCP Family Medicine
DX: L02.01 Cutaneous abscess of face (principal); Z86.14 Personal history of Methicillin resistant Staphylococcus aureus infection; Z79.01 Long term (current) use of anticoagulants; I13.0 Hypertensive heart and chronic kidney disease with heart failure and stage 1 through stage 4 chronic kidney disease, or unspecified chronic kidney disease; N18.30 Chronic kidney disease, stage 3 unspecified; I50.32 Chronic diastolic (congestive) heart failure; I48.0 Paroxysmal atrial fibrillation; Z86.73 Personal history of transient ischemic attack (TIA), and cerebral infarction without residual deficits; Z86.718 Personal history of other venous thrombosis and embolism; J44.9 Chronic obstructive pulmonary disease, unspecified; K74.60 Unspecified cirrhosis of liver; K75.81 Nonalcoholic steatohepatitis (NASH); K21.9 Gastro-esophageal reflux disease without esophagitis; D63.1 Anemia in chronic kidney disease; N40.0 Benign prostatic hyperplasia without lower urinary tract symptoms; G47.33 Obstructive sleep apnea (adult) (pediatric); E66.9 Obesity, unspecified; Z68.33 Body mass index [BMI] 33.0-33.9, adult; Z96.643 Presence of artificial hip joint, bilateral; Z87.891 Personal history of nicotine dependence
CPT/HCPCS: 99212; G0463

== ENCOUNTER 2025-04-09 16:04 | Emergency (ER) | payer MEDICARE, SELFPAY ==
--- OUTSIDE RECORDS SUMMARY | 2024-12-20 11:30 | XMS_ITS ---
Author Organization [facility] [employer] [facility] [place] ([address]) Address [address] [place] [address] Care Team Providers Care Manager Manufacturing Name Role Phone Cleo Funk Primary Care Provider Juan Alberto Amaral [phone] REASON FOR VISIT [facility] follow-up Social History Sex Assigned At : Social History Observation Description Sex Assigned At Male Encounters Encounter Location Date Provider Diagnosis [facility] [address] [place] [address] 12/20/2024 Juan Alberto Guillen Plan Of Treatment Next Appt Details Provider Name:Juan Alberto Guillen, 04/25/2025 11:00:00 AM, [address] [facility], [address], [place], [address], Progress Notes * Tina JANGOB:1950 (74 yo M)Acc No.[id number]:12/20/2024 Progress Notes Patient: Roe MOONnie Provider: Justin Guillen :1950 A ge:74 Y S ex:Male Date:12/20/2024 Address:[address], [id number] Pcp:Cleo Funk Subjective: * Chief Complaints: * 1 . [facility] follow-up. * Medical History: Objective: * Vitals: Assessment: Plan: * Treatment: * Billing Information: * Visit Code: * Procedure Codes: * Electronic signature of MD Mujica ph D on 04/09/2025 at 04:22 PM INFORMATICIST Sign off status: Pending * Provider: Justin Guillen Date: 0 12/20/2024 Generated for Claudio brownlee/Mikayla/Han on: 1 06/09/2024 04:22 PM INFORMATICIST
--- OUTSIDE RECORDS SUMMARY | 2025-03-28 05:00 | XMS_ITS ---
Author Organization [facility] ([address]) Address [address] [place] [address] Care Team Providers [employer] Name Role Phone Cleo Funk Primary Care Provider Juan Alberto Amaral Unavailable [phone] Allergies Allergen (clinical drug ingredient) Drug/Non Drug Allergy documented on EMR Reaction Allergy Type Onset Date Status clindamycin Clindamycin angioedema Drug Allergy Ac tive levofloxacin levoFLOXacin angioedema Drug Allergy Active Penicillin other reaction Drug Allergy A ctive scopolamine Scopolamine other reaction Drug Allergy Active tobramycin Tobramycin angioedema Drug Allergy Acti ve REASON FOR VISIT recurring infections f/u, post hospitalization on 11/05 x 2 wks Medications Medication SIG (Take, Route, Frequency, Duration) Notes Start Date End Date Status Triamcinolone Acetonide 0.1 % 1 application Externally Two times a Week Active Omeprazole 40 MG 1 capsule 1/2 to 1 hour before morning meal Orally Once a day Active Dupixent 300 MG/2ML 2 mL Subcutaneous Active Metoprolol Succinate ER 50 MG 1 tablet Orally Once a day Active Tacrolimus 0.1 % 1 application Externally Once a day Active Vitamin B6 100 MG 1 tablet Orally Once a day Active Cetirizine HCl 10 MG 1 tablet Orally Onc e a day Active Ferrous Sulfate 325 (65 Fe) MG 1 tablet Orally Three times a Week Active Spironolactone Activ e Roflumilast 500 MCG 1 tablet Orally Once a day Active Bumetanide 0.5 MG 1 tablet Orally Once a day Active Lactobacillus Active Doxycycline Hyclate 100 MG 1 capsule Orally Once a day Active Fluticasone Propionate 50 MCG/ACT 1 spray in each nostril Nasally Twice a day Active Folic Acid 0.8 MG 1 capsule Orally Once a day Active Magnesium 400 MG as directed Orally Active Eliquis 5 MG as directed Orally Active Gabapentin 300 MG 1 capsule Orally Once a day Active Vitamin D 25 MCG (1000 UT) 1 tablet Orally Once a day Active Aspirin 81 81 MG 1 tablet Orally Once a day Active Albuterol Sulfate HFA 108 (90 Base) MCG/ACT 1 puff as needed Inhalation every 4 hrs Active Mesalamine 4 GM as directed Rectal Active Baclofen 10 MG/20ML as directed Intrathecal Active Budesonide 0.5 MG/2ML 1 mL Inhalation Twice a day Active Tamsulosin HCl 0.4 MG 1 capsule Orally Once a day Active predniSONE 5 MG as directed Orally Once a day; Duration: 28 days Patient will take 4 tablets once a day for four days then 2 tablets once a day four days finally 1 tablet once a day. 03/28/2025 Active Diclofenac Active Lidocaine & Adhesive Wrap Active Benzonatate 200 MG 1 capsule as needed Orally Three times a day Active HYDROcodone-Acetaminoph en 5-325 MG 1 tablet as needed Orally every 6 hrs Active Miconazole 2 % 1 application Externally Twice a day Active Fluconazole 200 MG 1 tablet Orally Active Cyclobenzaprine HCl 10 MG 1 tablet at bedtime as needed Orally Once a day Active Social History Tobacco Use: Social History Observation Description Date Details (start date - stop date) Former Smoker NA - NA Sex Assigned At : Social History Observation Description Sex Assigned At Male Tobacco Control (Standard) Question Answer Notes Tobacco use: Former smoker AUDIT-C (Standard) Question Answer Notes Did you have a drink containing alcohol in the p ast year? No Points 0 Interpretation Negative Vital Signs Blood pressure systolic 112 mm Hg 03/28/20 25 Blood pressure diastolic 70 mm Hg 025 Respiratory Rate 17 /min 03/28/2025 Oximetry 100 % 03/28/2025 Encounters Encounter Location Date Provider Diagnosis [facility] [address] [place] [address] 03/28/2025 Juan Alberto Guillen Immunodeficiency, unspecified D84.9 ; Emphysema, unspecified J43.9 ; Personal history of pneumonia (recurrent) Z87.01 ; Angioneurotic edema, initial encounter T78.3XXA and Rash and other nonspecific skin eruption R21 Assessments Encounter Date Diagnosis (ICD Code) Assessment Notes Treatment Notes Treatment Clinical Notes Section Notes 03/28/2025 Immunodeficiency, unspecified (ICD-10 - D84.9) Laboratory testing performed on December 11, 2024 reveals a total IgG of 995, IgA of 268, IgM of 115. All complement studies were normal including C1 esterase inhibitor. CBC was normal with an eosinophil count of 700. Antitetanus antibody was normal. Diphtheria antibody was less than 0.1 being abnormal. Sed rate was elevated at 71 and CRP was elevated at 2 although at the time his blood was drawn he had recently been discharged from his hospitalization. Metabolic panel was significant for a glucose of 209, BUN of 50, normal AST and ALT,. He only had 2/23 pneumococcal serotypes that were protective. Based on this we will provide the pneumococcal vaccination (Pneumovax) with repeat pneumococcal antibody titers in 6 weeks which I will review on follow-up in 2 months. 03/28/2025 Emphysema, unspecified (ICD-10 - J43.9) Continue per pulmonary 03/28/2025 Personal history of pneumonia (recurrent) (ICD-10 - Z87.01) PIDD work-up as above 03/28/2025 Angioneurotic edema, initial encounter (ICD-10 - T78.3XXA) For his recurrent episodes of facial swelling and erythema I ordered the following: C4, C1 esterase inhibitor functional level which returned normal. I did give him prednisone last visit which for some reason they did not get from the pharmacy but he has had no reoccurrence of significant facial swelling. 03/28/2025 Rash and other nonspecific skin eruption (ICD-10 - R21) Zyrtec increase Zyrtec to 10 mg twice twice a day. Plan Of Treatment Medication Medication Name Sig Start Date Stop Date Notes predniSONE 5 MG as directed Orally O nce a day; Duration: 28 days 03/28/2025 Patient will take 4 tablets once a day for four days then 2 tablets once a day four days finally 1 tablet once a day. Treatment Notes Assessment Notes Immunodeficiency, unspecified Laboratory testing performed on December 11, 2024 reveals a total IgG of 995, IgA of 268, IgM of 115. All complement studies were normal including C1 esterase inhibitor. CBC was normal with an eosinophil count of 700. Antitetanus antibody was normal. Diphtheria antibody was less than 0.1 being abnormal. Sed rate was elevated at 71 and CRP was elevated at 2 although at the time his blood was drawn he had recently been discharged from his hospitalization. Metabolic panel was significant for a glucose of 209, BUN of 50, normal AST and ALT,. He only had 2/23 pneumococcal serotypes that were protective. Based on this we will provide the pneumococcal vaccination (Pneumovax) with repeat pneumococcal antibody titers in 6 weeks which I will review on follow-up in 2 months. Emphysema, unspecified Continue per pulm onary Personal history of pneumonia (recurrent ) PIDD work-up as above Angioneurotic edema, initial encounter For his recurrent episodes of facial swelling and erythema I ordered the following: C4, C1 esterase inhibitor functional level which returned normal. I did give him prednisone last visit which for some reason they did not get from the pharmacy but he has had no reoccurrence of significant facial swelling. Rash and other nonspecific skin eruption Zyrtec increase Zyrtec to 10 mg twice twice a day. Next Appt Details Follow Up: 8weeks, Reason: E /M, check post immunization Pneomo. Titers Provider Name:Juan Alberto Guillen, 04/25/2025 11:00:00 AM, [address] [facility], [address], [place], [address], Progress Notes * Tamir JANGeDOB:1950 (74 yo M)Acc No.[id number]:03/28/2025 Progress Notes Patient: Mason MOON Provider: Justin Guillen :1950 A ge:74 Y S ex:Male Date:03/28/2025 [facility] [id number] Pcp:Cleo Funk Subjective: * Chief Complaints: * 1 . Recurring infections f/u. 2. Post hospitalization on 11/05 x 2 wks. * HPI: * Introduction: HPI: Opal Jang returns for reevaluation last being seen by me in October. He was initially referred by Dr. Reji Ritchie for evaluation of suspected immune deficiency. My note below outlines his significant past history of recurrent infections. He also has a history of COPD and even episodes of angioedema for which I requested laboratory testing. He presents today with his stating that shortly after being seen by me he was hospitalized on November 05 for about 2 weeks for respiratory problems and was diagnosed with pneumonia, cellulitis and congestive heart failure. He was hospitalized for about 2 weeks and treated with antibiotics and steroids. He now presents with his for reevaluation back at baseline. He is having no fever chills night sweats. He is not significantly short of breath and appears to be at his baseline according to his and patient. Please see below for notes and documentation of his last visit. Mr. Jang is a 73-year-old gentleman who is referred by his boring inspector Dr. Reji Ritchie at [facility] for evaluation of suspected immune deficiency. He presents with his a very good historian with a list of all of his medications and multiple medical problems most significantly recurrent infections. 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 He has a history of severe COPD but quit smoking in the s. His main concern and reason for referral is to rule out an immune deficiency. He does have a history of recurring cellulitis multiple episodes of MRSA, His COPD appears to be quite severe followed by Dr. Ritchie. He is on home oxygen at 2 L per NC. He does not appear to have a history of recurrent sinusitis. His immunizations are somewhat up-to-date which include COVID, RSV and flu along with shingles and tetanus. Another main concern is what appears to be recurring episodes of erythema pruritus and facial swelling occurring at least 3 or 4 times in the last year often treated with antibiotics and prednisone. He just completed a course of prednisone recently. He was seen by dermatology and placed on Zyrtec. He was also seen by an business intelligence etl developer Dr. Chicas who performed skin testing and told him he was allergic to dust and cats. There is no other history of significant angioedema suggestive of HAE. His past history is significant for atrial fibrillation, GERD, severe COPD. He has no history of diabetes. 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 His extensive list of medications has been thoroughly reviewed.. * Allergic Rhinoconjunctivitis: Allergic rhinitis D o you have or suspect you have allergic rhinitis (itchy eyes, sneezing, congestion or runny nose triggered by allergies)? Y es W hich areas and what symptoms are involved? Please fill out each section below as needed. e yes,ears W hich of the following trigger your allergic rhinitis symptoms? h ouse cleaning (dusting or vacuuming),spring (season),fall (season),cats Eyes S pecific affected area: b oth (bilateral) O ccurence? i ntermittent H ow frequent? i nfrequent W hen does this mostly occur? p .m. S ymptoms: i tching,watering,redness E ffective treatments: o ral antihistamines (Zyrtec or Ivet or Claritin) Ears S pecific affected area: b oth (bilateral) H ow often? i ntermittent S ymptoms: d ischarge * Asthma: Cough D o you have a recurrent cough? N o Wheezing D o you have recurrent wheezing or a history of wheezing sometime in your life? Y es A pproximately, when did it start? 0 11/2015 A pproximately, when did you last wheeze? 0 10/2024 D id you have symptoms of asthma as a child??No D id you have frequent respiratory infections as a child? Y es W ere you ever hospitalized in the first 12 months of life for a respiratory infection in childhood? N o D o you still have wheezing? Y es H ow often do you get it? d aily I s your wheezing changing? b todd L ist months when wheezing is worse: J anuary,July,Ami,December,January,April,May W hat triggers your wheezing? c old air,house dusting or vacuuming,weather changes,car or truck exhaust,summer (season),winter (season) D o you take an inhaled, rescue bronchodilator medication? Y es N vaughn: A lbuterol,Other I s your bronchodilator used daily? Y es H ow often? f our times daily W hen was your last dose of an inhaled bronchodilator? t jayjay D o you require frequent additional rescue inhaler treatments in between the scheduled dose? Y es H ow often? o nce weekly H ave you taken oral steroids (Prednisone or Medrol) in the past? Y es H ow many times in the last year? 3 Nocturnal Symptoms D o you have any of the following respiratory symptoms at night? s ignificant phlegm production during the night,inability to sleep lying down flat due to cough or shortness of breath,awaken with shortness of breath in the morning Physical Performance H ow many blocks can you walk? (Enter 99 for unlimited) 0 H ow many flights of stairs can you climb without stopping? (Enter 99 for unlimited) 0 I f there are limitations, what symptoms limit further activity? s hortness of breath,fatigue,weakness D o you have any of the following additional problems? e xcessive daytime sleepiness,restless sleep,difficulty concentrating during the daytime Effective treatments for cough and or wheezing P rescription cough medicine: Freddy Garcia esclior inhaler or nebulizer treatment: O ther,Albuterol I nhaled steroid/LABA combinations: O ther A ntireflux medication: o meprazole (Prilosec) * Urticaria: Urticaria (hives) D o you have recurrent hives? N o * Angioedema: Angioedema (swelling) D o you have recurrent swelling (angioedema)??No * Atopic dermatitis: Atopic dermatitis - Eczema D o you have chronic or recurrent atopic dermatitis or eczema? Y es W hen did the eczema start? a dulthood B maxine parts involved? u pper arms,back,eyelids,face,neck H ow many episodes have you had in the past 12 months? 4 H ow long do episodes of your eczema last??1 month H ow frequently do you have symptoms? y early W hat time(s) of the day does the rash occur??6:00 PM - Bedtime A re there any times of the year when your eczema worsens (seasonal exacerbation)? w inter P erceived triggers or provocateurs of eczema??medications D o symptoms change when you are away from home? u nchanged A s the eczema resolves, are there skin changes? s caling or flaking W hat improves your atopic dermatitis/eczema??oral antihistamines (Zyrtec or Ivet or Claritin),OTC topical steroids (Hydrocortisone),oral steroids (Predinsone or Medrol),cream * Other Rash and Contact Dermatitis: Other rashes and contact dermatitis H ave you ever had any other form of rash or contact dermatitis? N o * Prior Evaluations and Treatments: Prior evaluations and treatments H ave you been evaluated by another physician for allergic rhinitis, cough, wheezing, asthma, urticaria, angioedema, atopic dermatitis or eczema??Yes W hat type(s) of of provider(s)? P [facility],Tipple Worker,Chief Of Field Operations,Mold Cleaner H ave you undergone testing for any aforementioned conditions or symptoms? Y es P erformed by: A llergist,Mold Cleaner T fantasmae of test: s kin test - airborne allergens H ow long ago: w ithin 12 months H ave you ever been on allergy immunotherapy??No H ave you ever passed out during a blood draw, shot or vaccination? N o Last dose of antihistamine: c etirizine (Zyrtec) 0 10/25/2024 H as your antihistamine been effective in controlling any of your symptoms? Y es D o you take any other psychiatric medication??No * Infections: Vaccination History H ave you ever had a flu shot? Y es D ate of last flu shot? 1 H ave you ever had a pneumococcal vaccine ([id number])? Y es H ave you ever had a tetanus vaccine (WOjd-Fzah-Pm)? Y es D ate of last tetanus vaccine? 0 07/21/2022 D id it contain pertussis as well? N o Ear Infections D o you have frequent ear infections? N o Sinusitis (Sinus infections) D o you have frequent episodes of sinusitis??No Sinus Symptoms and Surgery D o you have chronic or recurrent sinus symptoms? N o D o you have sinus pain? N o D o you have a loss of sense of taste? N o H ave you ever had a sinus CT or X-Ray? N o H ave your ever undergone sinus surgery? N o Bronchitis History D o you get frequent bronchitis? Y es H ow many episodes in your entire life? 7 H ow many episodes over the past 12 months??0 H ave you been treated with antibiotics for bronchitis? Y es H ave you been hospitalized for treatment??No H ave you been seen by an business intelligence etl developer or retail loss prevention officer for recurrent bronchitis? N o Pneumonia History H ave you ever had pneumonia or recurrent pneumonia? Y es H ow many episodes in your entire life? 8 H ow many episodes in the past 12 months? 2 H ave you been treated with antibiotics for pneumonia? Y es H ow often in the past year? t wice W ere antibiotics oral, IV or both? o ral H ave you been hospitalized for treatment??Yes D id you require any other treatment? o ral steroids H ave you been seen by an business intelligence etl developer or retail loss prevention officer to evaluate your immune system function for recurrent pneumonia N o Skin and Other Infections D o you get frequent skin infections (cellulitis)? Y es H ow many episodes in your entire life? 2 H ow many episodes in the past 12 months? 0 H ave you been treated with antibiotics for cellulitis? Y es H ave you been hospitalized for treatment??Yes D id you require any other treatment? o ral steroids H ave you been seen by an business intelligence etl developer or retail loss prevention officer to evaluate your immune system function for recurrent skin infections? N o D o you get any other frequent infections??Yes W hat type(s)? o ther H ave you been seen by an business intelligence etl developer or retail loss prevention officer for other infections? N o * Food allergy: Food Allergy D o you currently have or have you ever had any proven or suspected food allergies? Y es W hat food(s)? o ther food not listed W hat symptoms do you experience when foods are ingested? n ausea,vomiting H ow quickly do symptoms come on after food ingestion? 2 0 minutes to 1 hour H ave you ever been hospitalized or treated urgently for symptoms of a severe allergic reaction (anaphylaxis)? N o D o you carry self-injectable epinephrine for your prior reaction(s)? N o H ave you previously seen an business intelligence etl developer for evaluation of possible food allergy? N o * Eosinophilic GI: Eosinophilic Gastrointestinal Disease D o you have difficulty swallowing foods or have you previously needed to have your esophagus dilated for food impaction or have you been diagnosed with eosinophilic gastrointestinal disease? N o * Stinging Insects: Insect Reaction(s) H ave you ever experienced a stinging insect reaction? N o * Medication allergy: Medication Allergy D o you feel you are allergic to any medications? Y es W hat type of medication? a ntibiotic (Penicillin or Amoxicillin or other antimicrobial) H ow was the medication administered? o ral W hat was the medication administered for??pneumonia W hat symptom(s) did the medication cause??angioedema (swelling) W hen did the reaction first occur? 0 12/04/1971 W hen did the reaction last occur? 0 12/04/1971 I f antibiotic, what type: p enicillin-derivative H ave you been evaluated by an business intelligence etl developer previously for possible drug allergy? N o * ROS: A LLERGY: runny nose N o. s cratchy throat N o. i tchy eyes Y es. e ar fullness N o. s inus congestion N o. S PECIAL SENSES: cataracts N o. g laucoma N o. l oss of hearing?Yes. i tching in ears Y es. r inging in ears Y es. l oss of balance Y es. l oss of smell N o. d ry eyes Y es. i tching eyes Y es. l oss of taste N o. c onjunctivitis N o. e ar infections N o. C ONSTITUTIONAL: weight gain Y es. l oss of appetite N o. f ever?No. w eakness Y es. w eight loss Y es. f atigue Y es. n ight sweats N o. E NT: cold N o. e pistaxis N o. h earing loss Y es. c hange in voice N o. s ore throat N o. r inging in ears Y es. s inus pain N o. R ESPIRATORY: shortness of breath Y es. c hest pain N o. c hest congestion N o. c ough N o. O PHTHALMOLOGY: diminished vision N o. e ye irritation Y es. d rainage from eyes Y es. b lurring of vision N o. i tching Y es. d ischarge?Yes,No. w atering Y es. s welling of the eyelids Y es. r edness Y es.? E NDOCRINOLOGY: fatigue Y es. p olydipsia N o. p olyuria N o. w eight loss Y es. s leep disturbance Y es. c old intolerance Y es. h eat intolerance Y es. d iabetes N o. C ARDIOLOGY: chest pain N o. p alpitations N o. l eg edema?Yes. d izziness N o. s hortness of breath Y es. G ASTROENTEROLOGY: dysphagia N o. a bdominal pain N o. n ausea?Yes. v omiting N o. c onstipation N o. d iarrhea Y es. b lood in stool?No. i ndigestion Y es. h emorrhoids N o. U ROLOGY: difficulty urinating N o. b lood in urine Y es.?frequent urination N o. u rinary incontinence N o. r ecurrent UTI N o. ? D ERMATOLOGY: rash Y es. m ole N o. l umps N o. d ry or sensitive skin Y es. h jazmyn (urticaria) Y es. a cne N o. s kin cancer?No. N EUROLOGY: headache N o. t ingling numbness Y es. s eizures N o. i nsomnia Y es. m mireya loss Y es. d izziness N o. g ait abnormality Y es. M USCULOSKELETAL: joint swelling Y es. j oint pain Y es. l eg cramps Y es. j oint stiffness Y es. s ciatica N o. o steoporosis N o. f racture N o. c arpal tunnel N o. g out N o. P SYCHOLOGY: high stress level N o. d epression N o. s leep disturbances N o. s uicidal ideation N o. e ating disorder N o. m ental or physical abuse N o. a nxiety N o. M CODY REPRODUCTIVE: difficulty with erection Y es. d iminished sexual drive?Yes. p enile discharge N o. i nfertility N o. * Medical History: A FIB, Chronic obstructive pulmonary disease, unspecified. * Hospitalization/Major Diagno stic Procedure: C ellulitis , respiritory issues . * Family History: F ather: Yes. M other: Yes. P aternal Grand Father: No. P aternal Grand Mother: No. M aternal Grand Father: No. M aternal Grand Mother: No. S iblings: Yes. C hildren: Yes. There is no other family history of cancer, CF, diabetes, emphysema or heart disease . * Social History: M arital Status What is your marital status? m arried A lcohol Screening Do you ever drink alcoholic beverages? N o S moking Have you ever smoked tobacco: f ormer smoker Additional Findings: Tobacco User M oderate cigarette smoker (10-19 cigs/day) Additional Findings: Tobacco Non-User C urrent non-smoker, but past smoking history unknown How old were you when you started smoking? 2 2 How old were you when you quit smoking? 3 2 How many cigarettes a day did you smoke? 1 1 to 20 Are you a : f ormer smoker R ecreational drug use Have you ever used recreational drugs? N o D etails on consumption of certain products? Do you regularly consume products with aspartame; Equal or NutraSweet? Y es Do you regularly consume products with artificial coloring??Yes Have you ever noticed worsening of your rash with these food items? N o A re any of the following personal care products containing fragrance, dye or preservatives used regularly? Shampoo: N o Conditioner: N o Soap: N o Laundry Detergent: Y es Fabric Softener: N o Deodorant: Y es Perfume, cologne, after shave: N o Air freshners or other scented products: N o Hair coloring dyes or rinses: N o O ccupation Are you currenly employed? N o Have you had any job with high exposure to fumes, chemicals, dust or other noxious substances? Y es Are you currently a student? N o E nvironmental History Living environment: p rivate home,with pets Where is the home located? [place] Age of home: [age] How long have you lived there? 5 years or more How many people live in the home? 3 H ome description Basement: Y es Any water damage in basement? Y es Smokers in the home? N o Smokers outside the home? N o Air Conditioning? Y es Central Air? Y es Forced air heating? Y es Gas or electric? g as Fireplace? Y es Used how often? o ther Wood burning stove? N o Do you vacuum the home? Y es Air purification systems? Y es Is it a HEPA (high-efficiency particulate air filter)? Y es Ionizer on air purification system? N o Pillow and mattress dust-proof encasings? Y es Do you use a humidifier? Y es Whole house or room? r oom humidifier Does it have a humidistat? N o Is it used year-round, seasonal, or as needed? s easonal Is the humidifier cleaned regularly? Y es Do you own any pets? Y es What kind(s)? (click all that apply) c ats Where do your pets sleep? b edroom,kitchen,other room in home,anywhere in the house Fabric softeners used? N o Plants in the home? N o Is there carpeting in your bedroom? Y es Age of carpet? 3 0 Do you have euaw-bm-mtet carpeting? Y es What is the age of your carpeting? 3 0 What is the age of your mattress (years)? 1 0 What material(s) are used to manufacture your bedding and pillow? s ynthetic What is the age of your pillow (years)? 1 What material are your bedding items made of? n atural fiber (e.g. cotton) Do you sleep with quilts or blankets or a duvet? N o How many cats? 1 T obacco Control (Standard) Tobacco use: F ormer smoker A HUDSON-C (Standard) Did you have a drink containing alcohol in the past year? N o Points 0 Interpretation N egative * Medications: T aking Dupixent 300 MG/2ML Solution Prefilled Syringe 2 mL Subcutaneous , Taking Triamcinolone Acetonide 0.1 % Cream 1 application Externally Two times a Week , Taking Tacrolimus 0.1 % Ointment 1 application Externally Once a day , Taking Miconazole 2 % Powder 1 application Externally Twice a day , Taking Fluconazole 200 MG Tablet 1 tablet Orally , Taking Cyclobenzaprine HCl 10 MG Tablet 1 tablet at bedtime as needed Orally Once a day , Taking HYDROcodone-Acetaminophen 5-325 MG Tablet 1 tablet as needed Orally every 6 hrs , Taking Diclofenac , Taking Lidocaine & Adhesive Wrap , Taking Benzonatate 200 MG Capsule 1 capsule as needed Orally Three times a day , Taking Mesalamine 4 GM Enema as directed Rectal , Taking Albuterol Sulfate HFA 108 (90 Base) MCG/ACT Aerosol Solution 1 puff as needed Inhalation every 4 hrs , Taking Budesonide 0.5 MG/2ML Suspension 1 mL Inhalation Twice a day , Taking Tamsulosin HCl 0.4 MG Capsule 1 capsule Orally Once a day , Taking Baclofen 10 MG/20ML Solution as directed Intrathecal , Taking Gabapentin 300 MG Capsule 1 capsule Orally Once a day , Taking Vitamin D 25 MCG (1000 UT) Tablet 1 tablet Orally Once a day , Taking Aspirin 81 81 MG Tablet Delayed Release 1 tablet Orally Once a day , Taking Magnesium 400 MG Tablet as directed Orally , Taking Eliquis 5 MG Tablet as directed Orally , Taking Bumetanide 0.5 MG Tablet 1 tablet Orally Once a day , Taking Lactobacillus , Taking Doxycycline Hyclate 100 MG Capsule 1 capsule Orally Once a day , Taking Fluticasone Propionate 50 MCG/ACT Suspension 1 spray in each nostril Nasally Twice a day , Taking Folic Acid 0.8 MG Capsule 1 capsule Orally Once a day , Taking Cetirizine HCl 10 MG Tablet 1 tablet Orally Once a day , Taking Ferrous Sulfate 325 (65 Fe) MG Tablet 1 tablet Orally Three times a Week , Taking Spironolactone , Taking Roflumilast 500 MCG Tablet 1 tablet Orally Once a day , Taking Vitamin B6 100 MG Tablet 1 tablet Orally Once a day , Taking Omeprazole 40 MG Capsule Delayed Release 1 capsule 1/2 to 1 hour before morning meal Orally Once a day , Taking Metoprolol Succinate ER 50 MG Tablet Extended Release 24 Hour 1 tablet Orally Once a day , Medication List reviewed and reconciled with the patient * Allergies: P enicillin: other reaction, Scopolamine: other reaction, levoFLOXacin: angioedema, Tobramycin: angioedema, Clindamycin: angioedema. Objective: * Vitals: B P:112/70mm Hg, HR:93/min, RR:17/min, Pulse Oximetry:100%. * Examination: G eneral examination: General appearance: H is exam today revealed a pleasant male in no distress in a wheelchair using oxygen via nasal cannula but in no distress whatsoever. Lungs were totally clear with slight decreased breath sounds and no obvious crackles. Cardiac exam revealed an irregularly irregular rate at approximately 70 bpm. Lower extremities revealed no pitting edema.. Genitalia: n ot performed. Assessment: * Assessment: 1. I mmunodeficiency, unspecified - D84.9 (Primary) 2 . E mphysema, unspecified - J43.9 3 . P ersonal history of pneumonia (recurrent) - Z87.01 ?4. A ngioneurotic edema, initial encounter - T78.3XXA 5 . R humble and other nonspecific skin eruption - R21 Plan: * Treatment: 2. E mphysema, unspecified Notes: Continue per pulmonary 3. P ersonal history of pneumonia (recurrent) Notes: PIDD work-up as above 4. A ngioneurotic edema, initial encounter Notes: For his recurrent episodes of facial swelling and erythema I ordered the following: C4, C1 esterase inhibitor functional level which returned normal. I did give him prednisone last visit which for some reason they did not get from the pharmacy but he has had no reoccurrence of significant facial swelling. 5. R humble and other nonspecific skin eruption Start predniSONE Tablet, 5 MG, as directed, Orally, Once a day, 28 days, 28, Refills 0, Notes to Pharmacist: Patient will take 4 tablets once a day for four days then 2 tablets once a day four days finally 1 tablet once a day.. Notes: Zyrtec increase Zyrtec to 10 mg twice twice a day. * Procedure Codes: G 8427 DOC MEDS VERIFIED W/[place], [address] SELF-MGMT EDUC & TRAIN, 1 PT, [address]114 NOC Pneumovax 23, 29149 Single or Combination * Preventive Medicine: Screenings: F all Risk Fall Risk Assessment: N o falls in the past year * Follow Up: 8 weeks (Reason: E/M, check post immunization Pneomo. Titers ) * Billing Information: * Visit Code: 40661 Office Visit, Est Pt., Level 4. Modifiers: 25 * Procedure Codes: G8427 DOC MEDS VERIFIED W/[place]. [address] SELF-MGMT EDUC & TRAIN, 1 [place]. [address] NOC Pneumovax 23. 87076 Immunization Administration (one vaccine). * Electronic signature of MD Mujica ph D on 04/09/2025 at 04:22 PM SHIRRING MACHINE OPERATOR AUTOMATIC Sign off status: Pending * Provider: Justin Guillen Date: Generated for Claudio brownlee/Mikayla/Han on: 06/09/2024 04:22 PM SHIRRING MACHINE OPERATOR AUTOMATIC History and Physical Notes * HPI (History of Present Illness) Category Sub-Category Detail Notes Category Not es *Introduction HPI: Mr. Jang returns for reevaluation last being seen by me in October. He was initially referred by Dr. Reji Ritchie for evaluation of suspected immune deficiency. My note below outlines his significant past history of recurrent infections. He also has a history of COPD and even episodes of angioedema for which I requested laboratory testing. He presents today with his stating that shortly after being seen by me he was hospitalized on November 05 for about 2 weeks for respiratory problems and was diagnosed with pneumonia, cellulitis and congestive heart failure. He was hospitalized for about 2 weeks and treated with antibiotics and steroids. He now presents with his for reevaluation back at baseline. He is having no fever chills night sweats. He is not significantly short of breath and appears to be at his baseline according to his and patient. Please see below for notes and documentation of his last visit. Mr. Jang is a 73-year-old gentleman who is referred by his boring inspector Dr. Reji Ritchie at [facility] for evaluation of suspected immune deficiency. He presents with his a very good historian with a list of all of his medications and multiple medical problems most significantly recurrent infections. His history is somewhat significant and has consisted of the following: MRSA infection and sepsis in 2017 requiring prolonged hospitalization, MRSA infection in 2018 involving his right hip which resulted in 3 surgeries, pneumonia requiring hospitalization in 2018, severe flu requiring hospitalization in August 2019, cellulitis in 2022, streptococcal sepsis requiring hospitalization for 6 weeks in October 2023, history of recurring diarrhea in December 2023, pneumonia requiring hospitalization in January 2020 for an COVID requiring hospitalization in May 2020 for. He has a history of severe COPD but quit smoking in the 80s. His main concern and reason for referral is to rule out an immune deficiency. He does have a history of recurring cellulitis multiple episodes of MRSA, His COPD appears to be quite severe followed by Dr. Ritchie. He is on home oxygen at 2 L per [place]. He does not appear to have a history of recurrent sinusitis. His immunizations are somewhat up-to-date which include COVID, RSV and flu along with shingles and tetanus. Another main concern is what appears to be recurring episodes of erythema pruritus and facial swelling occurring at least 3 or 4 times in the last year often treated with antibiotics and prednisone. He just completed a course of prednisone recently. He was seen by dermatology and placed on Zyrtec. He was also seen by an business intelligence etl developer Dr. Chicas who performed skin testing and told him he was allergic to dust and cats. There is no other history of significant angioedema suggestive of HAE. His past history is significant for atrial fibrillation, GERD, severe COPD. He has no history of diabetes. 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 His extensive list of medications has been thoroughly reviewed. *Allergic Rhinoconjunctivitis Eyes Specific affected area:: both (bilateral) Occurence?: intermittent How frequent?: infrequent When does this mostly occur?: p.m. Symptoms:: itching,watering,redness Effective treatments:: oral antihistamin es (Zyrtec or Ivet or Claritin) Ears Specific affected area:: both (b ilateral) How often?: intermittent Symptoms:: discharge Allergic rhinitis Do you have or suspe ct you have allergic rhinitis (itchy eyes, sneezing, congestion or runny nose triggered by allergies)?: Yes Which areas and what symptoms are involved? Please fill out each section below as needed.: eyes,ears Which of the following trigger your allergic rhinitis symptoms?: house cleaning (dusting or vacuuming),spring (season),fall (season),cats *Asthma Cough Do you have a recurrent cough?: No Effective treatments for cou gh and or wheezing Prescription cough medicine:: Tessalon Perles Rescue inhaler or nebulizer treatment:: Other,Albuterol Inhaled steroid/LABA combinations:: Othe r Antireflux medication:: omeprazole (Pril osec) Wheezing Do you have recurren t wheezing or a history of wheezing sometime in your life?: Yes Approximately, when did it start?: 11/2015 Approximately, when did you last wheeze?: 10/2024 Did you have symptoms of asthma as a chi ld?: No Did you have frequent respiratory infect ions as a child?: Yes Were you ever hospitalized i n the first 12 months of life for a respiratory infection in childhood?: No Do you still have wheezing?: Yes How often do you get it?: daily Is your wheezing changing?: better List months when wheezing is worse:: June,July,November,December,January,April,May What triggers your wheezing? : cold air,house dusting or vacuuming,weather changes,car or truck exhaust,summer (season),winter (season) Do you take an inhaled, rescue bronchodi lator medication?: Yes Name:: Albuterol,Other Is your bronchodilator used daily?: Yes How often?: four times daily When was your last dose of an inhaled bronchodilator?: today Do you require frequent additional rescue inhaler treatments in between the scheduled dose?: Yes How often?: once weekly Have you taken oral steroids (Prednisone or Medrol) in the past?: Yes How many times in the last year?: 3 Nocturnal Symptoms Do you have any of t he following respiratory symptoms at night?: significant phlegm production during the night,inability to sleep lying down flat due to cough or shortness of breath,awaken with shortness of breath in the morning Physical Performance How many blocks can you wal k? (Enter 99 for unlimited): 0 How many flights of stairs c an you climb without stopping? (Enter 99 for unlimited): 0 If there are limitations, wh at symptoms limit further activity?: shortness of breath,fatigue,weakness Do you have any of the follo wing additional problems?: excessive daytime sleepiness,restless sleep,difficulty concentrating during the daytime *Infections Vaccination History Have you ever had a flu sh ot?: Yes Date of last flu shot?: 03/06/2024 Have you ever had a pneumococcal vaccine ([id number])?: Yes Have you ever had a tetanus vaccine (DTa p-Tdap-Td)?: Yes Date of last tetanus vaccine?: 07/21/2022 Did it contain pertussis as well?: No Ear Infections Do you have frequent ear infecti ons?: No Sinusitis (Sinus infections) Do you have frequen t episodes of sinusitis?: No Sinus Symptoms and Surgery Do you have chronic o r recurrent sinus symptoms?: No Do you have sinus pain?: No Do you have a loss of sense of taste?: N o Have you ever had a sinus CT or X-Ray?: No Have your ever undergone sinus surgery?: No Bronchitis History Do you get frequent bronchiti s?: Yes How many episodes in your entire life?: 7 How many episodes over the past 12 months?: 0 Have you been treated with antibiotics for bronchitis?: Yes Have you been hospitalized for treatment?: No Have you been seen by an business intelligence etl developer or retail loss prevention officer for recurrent bronchitis?: No Pneumonia History Have you ever had pneumonia or recurrent pneumonia?: Yes How many episodes in your entire life?: 8 How many episodes in the past 12 months?: 2 Have you been treated with antibiotics for pneumonia? : Yes How often in the past year?: twice Were antibiotics oral, IV or both?: oral Have you been hospitalized for treatment?: Yes Did you require any other treatment?: oral steroids Have you been seen by an business intelligence etl developer or retail loss prevention officer to evaluate your immune system function for recurrent pneumonia: No Skin and Other Infections Do you get cliff quent skin infections (cellulitis)?: Yes How many episodes in your entire life?: 2 How many episodes in the past 12 months?: 0 Have you been treated with antibiotics for cellulitis? : Yes Have you been hospitalized for treatment?: Yes Did you require any other treatment?: oral steroids Have you been seen by an business intelligence etl developer or retail loss prevention officer to evaluate your immune system function for recurrent skin infections?: No Do you get any other frequent infections ?: Yes What type(s)?: other Have you been seen by an business intelligence etl developer or retail loss prevention officer for other infections?: No *Other Rash and Contact Dermatitis Other rashes and contact dermatitis Have you ever had any other form of rash or contact dermatitis?: No *Atopic dermatitis Atopic dermatitis - Eczema Do you have chronic or recurrent atopic dermatitis or eczema?: Yes When did the eczema start?: adulthood Body parts involved?: upper arms,back,eyelids,face,neck How many episodes have you had in the past 12 months?: 4 How long do episodes of your eczema last?: 1 month How frequently do you have symptoms?: yearly What time(s) of the day does the rash occur?: 6:00 PM - Bedtime Are there any times of the year when your eczema worsens (seasonal exacerbation)?: winter Perceived triggers or provocateurs of eczema?: medications Do symptoms change when you are away from home?: unchanged As the eczema resolves, are there skin changes?: scaling or flaking What improves your atopic dermatitis/eczema?: oral antihistamines (Zyrtec or Ivet or Claritin),OTC topical steroids (Hydrocortisone),oral steroids (Predinsone or Medrol),cream *Urticaria Urticaria (hives) Do you have recurrent hives?: No *Medication allergy Medication Allergy Do you fe el you are allergic to any medications? : Yes What type of medication?: antibiotic (Penicillin or Amoxicillin or other antimicrobial) How was the medication administered?: oral What was the medication administered for?: pneumonia What symptom(s) did the medication cause?: angioedema (swelling) When did the reaction first occur?: 12/04/1971 When did the reaction last occur?: 12/04/1971 If antibiotic, what type:: penicillin-de rivative Have you been evaluated by a n business intelligence etl developer previously for possible drug allergy?: No *Stinging Insects Insect Reaction(s) Have you ev er experienced a stinging insect reaction? : No *Prior Evaluations and Treatments Prior evaluations and treatments Have you been evaluated by another physician for allergic rhinitis, cough, wheezing, asthma, urticaria, angioedema, atopic dermatitis or eczema?: Yes What type(s) of of provider(s)?: Primary care physician,Tipple Worker,Chief Of Field Operations,Mold Cleaner Have you undergone testing for any afore mentioned conditions or symptoms?: Yes Performed by:: Tipple Worker,Mold Cleaner Type of test:: skin test - airborne allergens How long ago:: within 12 months Have you ever been on allergy immunother apy?: No Have you ever passed out during a blood draw, shot or vaccination?: No Last dose of antihistamine: cetirizine (Zyrtec): 10/25/2024 Has your antihistamine been effective in controlling any of your symptoms?: Yes Do you take any other psychiatric medica tion?: No *Food allergy Food Allergy Do you currently have or have you ever had any proven or suspected food allergies?: Yes What food(s)?: other food not listed What symptoms do you experience when foods are ingested?: nausea,vomiting How quickly do symptoms come on after food ingestion?: 20 minutes to 1 hour Have you ever been hospitalized or treated urgently for symptoms of a severe allergic reaction (anaphylaxis)?: No Do you carry self-injectable epinephrine for your prior reaction(s)?: No Have you previously seen an business intelligence etl developer for evaluation of possible food allergy?: No *Eosinophilic GI Eosinophilic Gastroi ntestinal Disease Do you have difficulty swallowing foods or have you previously needed to have your esophagus dilated for food impaction or have you been diagnosed with eosinophilic gastrointestinal disease?: No *Angioedema Angioedema (swelling) Do you hav e recurrent swelling (angioedema)?: No Examination Category Sub-Category Detail Notes Category Not es General examination General appearance: His exam today revealed a pleasant male in no distress in a wheelchair using oxygen via nasal cannula but in no distress whatsoever. Lungs were totally clear with slight decreased breath sounds and no obvious crackles. Cardiac exam revealed an irregularly irregular rate at approximately 70 bpm. Lower extremities revealed no pitting edema. Genitalia: not performed
--- NOTE | ~2025-04-09 | CT_ITS ---
CT soft tissue neck w con INDICATION:right facial abscess . COMPARISON: None available. TECHNIQUE: Axial 5 mm images of the soft tissue of the neck were obtained following infusion of 100 mL Isovue. Additional sagittal and coronal reformations were rendered to evaluate the airway, vasculature, and spine. FINDINGS: There is asymmetric enlargement of the right parotid gland with right subcutaneous stranding suggestive of parotiditis. There is 1 cm right parotid nodule. There are no drainable fluid collections. The mucosal spaces, including the nasopharynx, oropharynx, hypopharynx, epiglottis, aryepiglottic folds, larynx, paralaryngeal fat spaces, and subglottic airway are unremarkable. The parapharyngeal fat spaces are not displaced or infiltrated. The cervical neurovascular structures are well opacified. There are no areas of foraminal enlargement or skull base destructive lesions to suggest the presence of metastatic disease. . No pathologically enlarged lymphadenopathy is seen. No evidence of lymph node necrosis, enlargement, or surrounding fatty infiltration is seen. The visceral spaces, including the thyroid gland, are normal. IMPRESSION: There is stranding and edema of the right parotid gland with adjacent subcutaneous stranding and nodule suggestive of right parotiditis. All CT scans at this facility are performed using low dose modulation techniques as appropriate to perform exam including the following: automated exposure control; use of iterative reconstruction technique; adjustment of the mA and/or kV according to patient size (this includes techniques or standardized protocols for targeted exams where dose is matched to indication/reason for exam). Reviewed, dictated and finalized at location S. EPOINT ARCHITECT IMPRESSION: There is stranding and edema of the right parotid gland with adjacent subcutane ous stranding and nodule suggestive of right parotiditis. All CT scans at this facility are performed using low dose modulation techniqu es as appropriate to perform exam including the following: automated exposure c ontrol; use of iterative reconstruction technique; adjustment of the mA and/or kV according to patient size (this includes techniques or standardized protocol s for targeted exams where dose is matched to indication/reason for exam).
--- OUTSIDE RECORDS SUMMARY | 2025-04-09 14:45 | XMS_ITS | Encounter Summary ---
Author Organization [facility] Healthcare Address [address] [place] [address] Care Team Providers Care Groutman Name Role Phone Cleo Funk DO Primary Care Provider + Puneet Powell MD Unavailable [phone] Epi Lake MD Unavailable [phone] Reason for Visit * Reason Comments Atrial Fibrillation 6 mo f/u Encounter Details Date Type Department Care Team (Late st Contact Info) Description 04/09/2025 2:45 PM ARTS ADMINISTRATOR Office Visit [facility] Medical Group Cardiology [address] [facility] [address] [id number] Epi Lake MD [address] [facility] [address] [place] [address] Chronic atrial fibrillation (HCC) (Primary Dx) Social History Tobacco Use Types Packs/Day Years Used Date Smoking Tobacco: Former Cigarettes Q uit: 1982 Smokeless Tobacco: Never Alcohol Use Standard Drinks/Week Comments No 0 (1 standard drink = 0.6 oz pur e alcohol) Sex and Gender Information Value Date Recorded Sex Assigned at Not on file Legal Sex Male 11:24 AM ARTS ADMINISTRATOR Gender Identity Not on file Sexual Orientation Not on file documented as of this encounter Last Filed Vital Signs Vital Sign Reading Time Taken Comments Blood Pressure 126/62 04/09/2025 2:31 PM ARTS ADMINISTRATOR Pulse 82 04/09/2025 2:31 PM ARTS ADMINISTRATOR Temperature - - Respiratory Rate - - Oxygen Saturation 96% 04/09/2025 2:3 1 PM ARTS ADMINISTRATOR w/O2 Inhaled Oxygen Concentration - - Weight 112 kg (247 lb) 04/09/2025 2:31 PM ARTS ADMINISTRATOR per pt (wheelchair) Height 180.3 cm (5' 11) 04/09/2025 2:3 1 PM ARTS ADMINISTRATOR Body Mass Index 34.45 04/09/2025 2:31 PM ARTS ADMINISTRATOR documented in this encounter Progress Notes * Epi Lake MD - 04/09/2025 2:45 PM CST [facility] FOLLOW UP 04/09/2025 Mason Keys is a 74 y.o. male who presents for follow up [...] off the ventilator support. Physicians at the [facility] had placed him on amiodarone for simple rate control. After I saw the patient in follow-up in February of 2018 I transitioned him back to standard beta-fe treatment because the traffic officer at the [facility] did not want him on the amiodarone which is not a drug that I started in the 1st place. He c ontinues to take antibiotics for treatment of chronic vertebral infection. He does have chronic symptoms of exertional dyspnea which I have attributed to both his atrial fibrillation, COPD and obesity. He returns to the office today for a six-month follow-up appointment. He continues to take metoprolol and apixaban for his atrial fibrillation. Feels well and does not have any cardiovascular complaints or concerns. He has developed a swelling in the left side of his jaw over the last couple of days. He is not running a fever he is going to see an urgent care physician after this appointment for that evaluation. REVIEW OF SYSTEMS General ROS: negative for [...] as needed for pain, Disp: , Rfl: acetaminophen 500 mg capsule, Take 1 capsule (500 mg total) by mouth, Disp: , Rfl: acidophilus-pectin, citrus 100 million cell-10 mg capsule, Take by mouth 3 (three) times a day, Disp: , Rfl: albuterol (PROVENTIL,VENTOLIN) 2.5 mg/0.5 mL solution for nebulization, Take 1 mL (5 mg total) by nebulization every 6 (six) hours as needed (resp failure)., Disp: 25 each, Rfl: 0 albuterol 2.5 mg /3 mL (0.083 %) nebulizer solution, Inhale 3 mL (2.5 mg total), Disp: , Rfl: apixaban (ELIQUIS) 5 mg tablet, Take 1 tablet (5 mg total) by mouth 2 (two) times a day., Disp: 60 tablet, Rfl: 0 aspirin (ASPIRIN LOW DOSE) 81 mg tablet, Take 1 tablet (81 mg total) by mouth daily., Disp: 30 tablet, Rfl: 0 aspirin 81 mg enteric coated tablet, Take 1 tablet (81 mg total) by mouth, Disp: , Rfl: baclofen (LIORESAL) 10 mg tablet, Take 1 tablet (10 mg total) by mouth 3 (three) times a day with meals., Disp: 90 tablet, Rfl: 0 baclofen (LIORESAL) 10 mg tablet, by other route, Disp: , Rfl: benzonatate (TESSALON) 200 mg capsule, Take 1 capsule (200 mg total) by mouth 3 (three) times a dayas needed for cough, Disp: , Rfl: budesonide (PULMICORT) 0.5 mg/2 mL nebulizer solution, Take 2 mL (0.5 mg total) by nebulization 2 (two) times a day Rinse mouth with water after use. Do not swallow., Disp: 120 mL, Rfl: 11 bumetanide (BUMEX) 0.5 mg tablet, Take 1 tablet (0.5 mg total) by mouth daily., Disp: 30 tablet, Rfl: 0 camphor-menthol (SARNA) lotion, Apply topically as needed for itching., Disp: 222 mL, Rfl: 0 cetirizine (ZyrTEC) 10 mg tablet, Take 1 tablet (10 mg total) by mouth daily, Disp: , Rfl: cholecalciferol 25 mcg (1,000 unit) tablet, Take 2 tablets (2,000 Units total) by mouth daily, Disp: , Rfl: Daliresp 500 mcg tablet, , Disp: , Rfl: doxycycline (VIBRAMYCIN) 100 mg capsule, Take 1 tablet/capsule (100 mg total) by mouth daily, Disp:, Rfl: dupilumab (DUPIXENT) 300 mg/2 mL pen injector, Inject under the skin, Disp: , Rfl: ferrous fumarate 325 mg (106 mg iron) tablet, Take 1 tablet (325 mg total) by mouth daily with breakfast, Disp: , Rfl: ferrous sulfate ER 324 mg (65 mg iron) EC tablet, Take 1 tablet (324 mg total) by mouth, Disp: , Rfl: fluticasone propionate (FLONASE) 50 mcg/actuation nasal spray, Administer 2 sprays into each nostril daily, Disp: , Rfl: FOLIC ACID ORAL, Take 1 tablet by mouth daily, Disp: , Rfl: gabapentin (NEURONTIN) 300 mg capsule, Take 1 capsule (300 mg total) by mouth, Disp: , Rfl: GABAPENTIN ORAL, Take 300 mg by mouth 2 (two) times a day, Disp: , Rfl: HYDROcodone-acetaminophen (NORCO) 5-325 mg per tablet, Take 1 tablet by mouth nightly at bedtime., Disp: , Rfl: ipratropium-albuteroL (DUO-NEB) 0.5-2.5 mg/3 mL nebulizer solution, Take 3 mL by nebulization every6 (six) hours, Disp: 360 mL, Rfl: 11 L.acid,paracas-B.anima-S.therm 16 billion cell capsule, Take by mouth, Disp: , Rfl: magnesium oxide 400 mg magnesium capsule, Take by mouth, Disp: , Rfl: metoprolol XL (TOPROL-XL) 50 mg extended release tablet, Take 1 tablet (50 mg total) by mouth daily, Disp: , Rfl: miconazole 2 % powder, Apply topically 2 (two) times a day., Disp: 70 g, Rfl: 0 omeprazole (PriLOSEC) 40 mg capsule, Take 1 capsule (40 mg total) by mouth daily, Disp: , Rfl: oxygen, 2 L, Disp: , Rfl: predniSONE (DELTASONE) 10 mg tablet, Take by mouth, Disp: , Rfl: pyridoxine (VITAMIN B-6) 100 mg tablet, Take 1 tablet (100 mg total) by mouth, Disp: , Rfl: spironolactone (ALDACTONE) 25 mg tablet, Take 0.5 tablets (12.5 mg total) by mouth daily, Disp: , Rfl: spironolactone (ALDACTONE) 25 mg tablet, Take 0.5 tablets (12.5 mg total) by mouth, Disp: , Rfl: tacrolimus (PROTOPIC) 0.1 % ointment, Apply topically, Disp: , Rfl: tamsulosin (FLOMAX) 0.4 mg extended release capsule, Take 1 capsule (0.4 mg total) by mouth nightly., Disp: 30 capsule, Rfl: 0 triamcinolone (KENALOG) 0.1 % cream, APPLY A THIN LAYER TOPICALLY FOUR TIMES DAILY TO THE AFFECTED AREA, Disp: , Rfl: 3 vitamin B complex capsule, Take 1 capsule by mouth daily 100 mg, Disp: , Rfl: mesalamine (ROWASA) 4 gram/60 mL enema, INSERT 60MLS (4G) RECTALLY TWICE A DAY FOR 90 DAYS (Patientnot taking: Reported on 10/01/2024), Disp: , Rfl: LABS AND OTHER DIAGNOSTIC TESTS No results found for: CHOL No results found for: HDL No results found for: LDLCALC No results found for: TRIG No results found for: CHOLHDL Lab Results Component Value Date WBC 7.8 03/22/2019 HGB 8.4 (L) 03/22/2019 HCT 30.0 (L) 03/22/2019 MCV 92.3 03/22/2019 No lab exists for component: LABALBU PHYSICAL EXAM Vitals BP 126/62 (BP Location: Left arm, Patient Position: Sitting) Pulse 82 Ht 180.3 cm (5' 11) Wt 112 kg (247 lb) SpO2 96% BMI 34.45 kg/m?? Physical Examination: General appearance [...] with his chronic AF. Epi Lake MD ADMINISTRATOR documented in this encounter Plan of Treatment Not on file documented as of this encounter Visit Diagnoses Diagnosis Chronic atrial fibrillation (HCC)- Primary Atrial fibrillation documented in this encounter Discontinued Medications Medication Sig Discontinue Reason Start Date End Da te nystatin powder Apply topically 4 (four) times a day Patient Reported 04/09/2025 documented as of this encounter Care Teams Groutman Relationship Specialty Start Date End Date Cleo Funk DO [facility]7 [facility] [address] [place] [address] PCP - General Family Medicine 03/27/24 Puneet Powell MD [address] [phone] [place] [address] Consulting Physician Pulmonary Disease 03/04/25 Epi Lake MD [address] [facility] 162 [facility] [address] [place] [address] Consulting Physician Cardiology 03/04/25 documented as of this encounter
--- OUTSIDE RECORDS SUMMARY | 2025-04-09 14:45 | XMS_ITS | Encounter Summary ---
Author Organization [facility] Healthcare Address [address] [place] [address] Care Team Providers Care Barytes Grinder Name Role Phone Cleo Funk DO Primary Care Provider + Puneet Powell MD Unavailable [phone] Epi Lake MD Unavailable [phone] Reason for Visit * Reason Comments Atrial Fibrillation 6 mo f/u Encounter Details Date Type Department Care Team (Late st Contact Info) Description 04/09/2025 2:45 PM QUARRYMAN Office Visit [facility] Medical Group Cardiology 6810 [facility] [address] [phone] Epi Lake MD [address] [facility] [address] [place] [address] Chronic atrial fibrillation (HCC) (Primary Dx) Social History Tobacco Use Types Packs/Day Years Used Date Smoking Tobacco: Former Cigarettes Q uit: 1982 Smokeless Tobacco: Never Alcohol Use Standard Drinks/Week Comments No 0 (1 standard drink = 0.6 oz pur e alcohol) Sex and Gender Information Value Date Recorded Sex Assigned at Not on file Legal Sex Male 11:24 AM QUARRYMAN Gender Identity Not on file Sexual Orientation Not on file documented as of this encounter Last Filed Vital Signs Vital Sign Reading Time Taken Comments Blood Pressure 126/62 04/09/2025 2:31 PM QUARRYMAN Pulse 82 04/09/2025 2:31 PM QUARRYMAN Temperature - - Respiratory Rate - - Oxygen Saturation 96% 04/09/2025 2:3 1 PM QUARRYMAN w/O2 Inhaled Oxygen Concentration - - Weight 112 kg (247 lb) 04/09/2025 2:31 PM QUARRYMAN per pt (wheelchair) Height 180.3 cm (5' 11) 04/09/2025 2:3 1 PM QUARRYMAN Body Mass Index 34.45 04/09/2025 2:31 PM QUARRYMAN documented in this encounter Progress Notes * [...] back to standard beta-fe treatment because the food and nutrition services supervisor at the [facility] did not want him on the amiodarone [...] with his chronic AF. Epi Lake MD RYMAN documented in this encounter Plan of Treatment Not on file documented as of this encounter Visit Diagnoses Diagnosis Chronic atrial fibrillation (HCC)- Primary Atrial fibrillation documented in this encounter Discontinued Medications Medication Sig Discontinue Reason Start Date End Da te nystatin powder Apply topically 4 (four) times a day Patient Reported 04/09/2025 documented as of this encounter Care Teams Barytes Grinder Relationship Specialty Start Date End Date Cleo Funk DO [facility]7 [facility] [address] [place] [address] PCP - General Family Medicine 03/27/24 Puneet Powell MD [address] [phone] [place] [address] Consulting Physician Pulmonary Disease 03/04/25 Epi Lake MD [address] [facility] 162 [facility] [address] [place] [address] Consulting Physician Cardiology 03/04/25 documented as of this encounter
[2025-04-09 16:04] VITALS: BP 115/72; PULSE 73; RESP 16; TEMP 36.4; O2SAT 100
--- OUTSIDE RECORDS SUMMARY | 2025-04-09 16:50 | XMS_ITS | Encounter Summary ---
Author Organization [facility] Healthcare Address [address] [place] [address] Care Team Providers Care Fur Tailor Name Role Phone Briana Medeiros MD Primary Care Provider [phone] Napoleon Birmingham MD Primary Care Provider [phone] Cleo Funk DO Primary Care Provider + Puneet Powell MD Unavailable [phone] Epi [place] MD Unavailable [phone] Encounter Details Date Type Department Care Team (Late st Contact Info) Description 10/24/2017 Telephone [facility] Physical Medicine and Rehabilitation [address] [place] [address] Katya Oliver RN Social History Tobacco Use Types Packs/Day Years Used Date Smoking Tobacco: Former Smokeless Tobacco: Never Alcohol Use Standard Drinks/Week Comments No 0 (1 standard drink = 0.6 oz pur e alcohol) Sex and Gender Information Value Date Recorded Sex Assigned at Not on file 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 Gender Identity Not on file Sexual Orientation [...] as of this encounter Care Teams Fur Tailor Relationship Specialty Start Date End Date Briana Medeiros MD [address] [place], [place] [id number] PCP - General 07/06/12 03/24/22 Napoleon Birmingham MD [address] [place] [address] PCP - General Family Medicine 03/25/22 03/26/24 Cleo Funk DO [address] [place] [address] DR [address] [place] [id number] PCP - General Family Medicine 03/27/24 Puneet Powell MD [address] [phone] [place] [address] Consulting Physician Pulmonary Disease 03/04/25 Epi [place] MD [address] [address] [id number] Consulting Physician Cardiology 03/04/25 documented as of this encounter
--- OUTSIDE RECORDS SUMMARY | 2025-04-09 16:50 | XMS_ITS | Patient Health Record ---
Author Organization [facility] [employer] [place] ([address]) Address [address] [place] [address] Care Team Providers Care Independent Freight Agent Name Role Phone Cleo Funk Primary Care Provider Juan Alberto Amaral [facility] [phone] Allergies Allergen (clinical drug ingredient) Drug/Non Drug Allergy documented on EMR Reaction Allergy Type Onset Date Status clindamycin Clindamycin angioedema Drug Allergy Ac tive levofloxacin levoFLOXacin angioedema Drug Allergy Active Penicillin other reaction Drug Allergy A ctive scopolamine Scopolamine other reaction Drug Allergy Active tobramycin Tobramycin angioedema Drug Allergy Acti ve Results Component Value Reference Range Notes -Immunoglobulins A/G/M, Qn, Ser (Not yet reviewed by provider) Interpretation: Performing Lab:[facility] [id number] [place], [place] [id number], Phone - [phone], Director - Ph[facility]icj[facility] center[facility]ilarioi Notes/Report: Immunoglobulin G, Qn, Serum 463 539-8642 mg/d L Immunoglobulin A, Qn, Serum 268 61-437 mg/dL Immunoglobulin M, Qn, Serum 115 15-143 mg/dL -Complement C4, Serum (Not y et reviewed by provider) Interpretation: Performing Lab:[facility], [address] [place], [place] [id number], Phone - [phone], Director - PhDRicjennie stuart medical centeruti Notes/Report: Complement C4, Serum 16 12-38 mg/dL -Complement, Total (CH50) ([id number]) (Not yet reviewed by provider) Interpretation: Performing Lab:[address] [id number], Phone - [phone], Director - Janet Notes/Report: Complement, Total (CH50) >60 >41 U/mL Age Male Female 1 - 30 days Not Estab. Not Estab. 31 days - 6 months >32 >20 7 months - 17 years >39 >39 >17 years >41 >41 NOTE: The adult (>17 years) reference interval range is used to flag abnormals on this report. If the patient is 17 years old or younger, use the table above to determine out of range values. -C1 Esterase Inhibitor, Seru m (Not yet reviewed by provider) Interpretation: Performing Lab:[address] [id number], Phone - [phone], Director - [place] Nena Notes/Report: C1 Esterase Inhibitor, Serum 35 21-39 mg/dL -CBC With Differential/Plate let (Not yet reviewed by provider) Interpretation: Performing Lab:[address] [id number], Phone - [phone], Director - Janet Notes/Report: Neutrophils 71 Not Estab. % Lymphs 10 Not Estab. % Monocytes 9 Not Estab. % Eos 8 Not Estab. % Basos 1 Not Estab. % Neutrophils (Absolute) 6.4 1.4-7.0 x10E3/uL Lymphs (Absolute) 0.9 0.7-3.1 x10E3/uL Monocytes(Absolute) 0.8 0.1-0.9 x10E3/uL Eos (Absolute) 0.7 0.0-0.4 x10E3/uL Baso (Absolute) 0.1 0.0-0.2 x10E3/uL Immature Granulocytes 1 Not Estab. % Immature Grans (Abs) 0.1 0.0-0.1 x10E3/uL -C1 Esterase Inhibitor, Func (Not yet reviewed by provider) Interpretation: Performing Lab:[address] [id number], Phone - [phone], Director - [place] Notes/Report: C1 Est.Inhib.Funct. 103 Abnormal <41 Equivocal 41 - 67 Normal >67 -Haemophilus influenzae B Ig G (Not yet reviewed by provider) Interpretation: Performing [facility], [address] [place] [id number], Phone - [phone], Director - [facility] Notes/Report: Haemophilus influenzae B IgG 0.56 NOTE: An anti-Hib level of 0.15 ug/mL is generally accepted as the minimum level for protection. Optimal protection post-vaccination requires a level greater than 1.00 ug/mL. -Tetanus/Diphtheria Ab (Not yet reviewed by provider) Interpretation: Performing Lab:[facility], [address] [place], [place] [id number], Phone - [phone], Director - [facility] Notes/Report: Tetanus Antitoxoid IgG Ab 1.03 <0.10 IU/mL Interpretation: Non-Protective <0.10 Protective >=0.10 Results for this test are for research purposes only by the assay's rock contractor. The performance characteristics of this product have not been established. Results should not be used as a diagnostic procedure without confirmation of the diagnosis by another medically established diagnostic product or procedure. Diphtheria Antitoxoid Ab <0.10 <0.10 IU/mL Interpretation: Non-Protective <0.10 Protective >=0.10 . For research use only. STREPTOCOCCUS PNEUMONIAE AB (IGG) (23 SEROTYPES) (Not yet reviewed by provider) Interpretation: Performing Lab:[facility], [facility],, [address] [place], [address] Michelle Brice MD,PhD,ARIAS Notes/Report: NON-FASTING SEROTYPE 1 (1) 20.2 SEROTYPE 2 (2) 11.0 SEROTYPE 3 (3) 0.4 SEROTYPE 4 (4) 2.2 SEROTYPE 5 (5) 29.0 SEROTYPE 8 (8) 1.0 SEROTYPE 9 (9N) <0.3 SEROTYPE 12 (12F) <0.3 SEROTYPE 14 (14) 7.4 SEROTYPE 17 (17F) 7.1 SEROTYPE 19 (19F) 4.8 SEROTYPE 20 (20) 0.7 SEROTYPE 22 (22F) 0.6 SEROTYPE 23 (23F) 0.9 SEROTYPE 26 (6B) 2.3 SEROTYPE 34 (10A) <0.3 SEROTYPE 43 (11A) 0.6 SEROTYPE 51 (7F) 53.5 SEROTYPE 54 (15B) 3.7 SEROTYPE 56 (18C) 2.0 SEROTYPE 57 (19A) 2.5 SEROTYPE 68 (9V) 2.1 SEROTYPE 70 (33F) 1.1 Serologic correlates of protection against pneumococcal disease have not been rigorously established for all patient populations. Published data and expert consensus (including WHO) suggest protection from invasive disease usually occurs at levels >or =0.3-0.50 mcg/mL for healthy children receiving pneumococcal conjugate vaccines. Higher titers may be necessary to protect from non-invasive infection (e.g., pneumonia, otitis, sinusitis). Expert opinion suggests that a cut-off of >= 1.3 mcg/mL may be a more relevant value to assess antibody responses after pneumococcal polysaccharide vaccines or for immunocompromised patients. In addition to antibody quantity, protection also depends on antibody avidity and opsonophagocytic activity. Some experts consider that post-vaccination (4-6 weeks) IgG seroconversion and/or 2- to 4-fold rise in IgG titers for >50% to 70% of vaccine serotypes demonstrates a normal post-vaccine serologic response. Persons with high initial serotype-specific titers may have less robust responses. [facility] uses a multi-analyte immunodetection (MAID) method. The method employs the [employer]LE flow cytometric system which measures multiple analytes simultaneously. The FDA standard reference serum 89-S is used as the calibration standard. Results are reported in mcg/mL. This assay detects all of the 23 of the serotypes in the 23-valent polysaccharide vaccine and 12 of the 13 serotypes in the 13-valent conjugate vaccine. This test was developed and its analytical performance characteristics have been determined by [facility]. It has not been cleared or approved by FDA. This assay has been validated pursuant to the CLIA regulations and used for clinical purposes. For additional information, please refer to http://education.[employer].com/faq/QQD902 (This link is being provided for informational/ educational purposes only.) TSH reflex to T4F (Not yet r eviewed by provider) Interpretation: Performing Lab:[facility], [address] [facility], [place], [place] [id number], Phone - [phone], Director - Janet Notes/Report: TSH 1.440 0.450-4.500 uIU/mL -Pneumococcal Ab (23 Serotyp e) (Not yet reviewed by provider) Interpretation: Performing Lab:[facility], [address] [place] [address], [address], [place], [place] [id number], Phone - [phone], Director - PhDBCNeil Notes/Report: Pneumo Ab Type 1* 0.3 >1.3 ug/mL Pneumo Ab Type 3* <0.1 >1.3 ug/mL Pneumo Ab Type 4* 0.1 >1.3 ug/mL Pneumo Ab Type 8* <0.3 >1.3 ug/mL Pneumo Ab Type 9 (9N)* <0.1 >1.3 ug/mL Pneumo Ab Type 12 (12F)* 0.1 >1.3 ug/mL Pneumo Ab Type 14* 2.7 >1.3 ug/mL Pneumo Ab Type 17 (17F)* 0.3 >1.3 ug/mL Pneumo Ab Type 19 (19F)* 0.8 >1.3 ug/mL Pneumo Ab Type 2* 1.0 >1.3 ug/mL Pneumo Ab Type 20* <0.2 >1.3 ug/mL Pneumo Ab Type 22 (22F)* <0.1 >1.3 ug/mL Pneumo Ab Type 23 (23F)* <0.1 >1.3 ug/mL Pneumo Ab Type 26 (6B)* 0.1 >1.3 ug/mL Pneumo Ab Type 34 (10A)* <0.1 >1.3 ug/mL Pneumo Ab Type 43 (11A)* <0.1 >1.3 ug/mL Pneumo Ab Type 5* 0.6 >1.3 ug/mL Pneumo Ab Type 51 (7F)* 1.2 >1.3 ug/mL Pneumo Ab Type 54 (15B)* <0.2 >1.3 ug/mL Pneumo Ab Type 56 (18C)* <0.1 >1.3 ug/mL Pneumo Ab Type 57 (19A)* 1.1 >1.3 ug/mL Pneumo Ab Type 68 (9V)* 0.2 >1.3 ug/mL Pneumo Ab Type 70 (33F)* 0.4 >1.3 ug/mL *This test was developed and its performance characteristics determined by [employer]. It has not been cleared or approved by the U.S. Food and Drug Administration. FLAG Interpretation: A = Abnormal, H = High, L = Low -CMP14+ESR Dennis+CRP+CBC/Plt ( Not yet reviewed by provider) Interpretation: Performing Lab:[facility], [address] [place] [address], [place], [place] [id number], Phone - [phone], Director - Janet Notes/Report: Glucose 209 70-99 mg/dL BUN 50 8-27 mg/dL Creatinine 1.96 0.76-1.27 mg/dL eGFR 35 >59 mL/min/1.73 BUN/Creatinine Ratio 26 10-24 Sodium 140 134-144 mmol/L Potassium 4.3 3.5-5.2 mmol/L Chloride 98 96-106 mmol/L Carbon Dioxide, Total 25 20-29 mmol/L Calcium 9.7 8.6-10.2 mg/dL Protein, Total 6.4 6.0-8.5 g/dL Albumin 3.9 3.8-4.8 g/dL Globulin, Total 2.5 1.5-4.5 g/dL Bilirubin, Total 0.7 0.0-1.2 mg/dL Alkaline Phosphatase 171 44-121 IU/L AST (SGOT) 29 0-40 IU/L ALT (SGPT) 25 0-44 IU/L C-Reactive Protein, Quant 21 0-10 mg/L WBC 8.9 3.4-10.8 x10E3/uL RBC 3.64 4.14-5.80 x10E6/uL Hemoglobin 11.2 13.0-17.7 g/dL Hematocrit 36.3 37.5-51.0 % MCV 100 79-97 fL MCH 30.8 26.6-33.0 pg MCHC 30.9 31.5-35.7 g/dL RDW 14.1 11.6-15.4 % Platelets 200 150-450 x10E3/uL Sedimentation Rate-Westergren 71 0-30 mm/hr Reason For Referral No Information Medications Medication SIG (Take, Route, Frequency, Duration) Notes Start Date End Date Status Baclofen 10 MG/20ML as directed Intrathecal Active Gabapentin 300 MG 1 capsule Orally Once a day Active Vitamin D 25 MCG (1000 UT) 1 tablet Orally Once a day Active Aspirin 81 81 MG 1 tablet Orally Once a day Active Budesonide 0.5 MG/2ML 1 mL Inhalation Twice a day Active Tamsulosin HCl 0.4 MG 1 capsule Orally Once a day Active Albuterol Sulfate HFA 108 (90 Base) MCG/ACT 1 puff as needed Inhalation every 4 hrs Active Diclofenac Active Vitamin B6 100 MG 1 tablet Orally Once a day Active Lidocaine & Adhesive Wrap Active Omeprazole 40 MG 1 capsule 1/2 to 1 hour before morning meal Orally Once a day Active Benzonatate 200 MG 1 capsule as needed Orally Three times a day Active Metoprolol Succinate ER 50 MG 1 tablet Orally Once a day Active Mesalamine 4 GM as directed Rectal Active predniSONE 5 MG as directed Orally Once a day; Duration: 28 days Patient will take 4 tablets once a day for four days then 2 tablets once a day four days finally 1 tablet once a day. 03/28/2025 Active Miconazole 2 % 1 application Externally Twice a day Active Cetirizine HCl 10 MG 1 tablet Orally Onc e a day Active Fluconazole 200 MG 1 tablet Orally Active Ferrous Sulfate 325 (65 Fe) MG 1 tablet Orally Three times a Week Active Cyclobenzaprine HCl 10 MG 1 tablet at bedtime as needed Orally Once a day Active Spironolactone Activ e HYDROcodone-Acetaminoph en 5-325 MG 1 tablet as needed Orally every 6 hrs Active Roflumilast 500 MCG 1 tablet Orally Once a day Active Doxycycline Hyclate 100 MG 1 capsule Orally Once a day Active Fluticasone Propionate 50 MCG/ACT 1 spray in each nostril Nasally Twice a day Active Tacrolimus 0.1 % 1 application Externally Once a day Active Folic Acid 0.8 MG 1 capsule Orally Once a day Active Triamcinolone Acetonide 0.1 % 1 application Externally Two times a Week Active Magnesium 400 MG as directed Orally Active Eliquis 5 MG as directed Orally Active Dupixent 300 MG/2ML 2 mL Subcutaneous Active Bumetanide 0.5 MG 1 tablet Orally Once a day Active Lactobacillus Active Immunizations Vaccine Route Administration Date Status Comme nts NOC Pneumovax 23 IM Intramuscular 01/22/2025 Administered Social History Tobacco Use: Social History Observation [...] ast year? 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 [employer] [address] [place] [id number] 01/22/2025 Juan Alberto Guillen Immunodeficiency, unspecified D84.9 ; Emphysema, unspecified J43.9 ; Personal history of pneumonia (recurrent) Z87.01 ; Angioneurotic edema, initial encounter T78.3XXA and Rash and other nonspecific skin eruption R21 [facility] [employer] [address] [address] [place] [phone] 03/28/2025 Juan Alberto Guillen Immunodeficiency, unspecified D84.9 ; Emphysema, unspecified J43.9 ; Personal history of pneumonia (recurrent) Z87.01 ; Angioneurotic edema, initial encounter T78.3XXA and Rash and other nonspecific skin eruption R21 [place] [address] [address] [place] [phone] 11/01/2024 Juan Alberto Guillen Immunodeficiency, unspecified D84.9 ; Emphysema, unspecified J43.9 ; Personal history of pneumonia (recurrent) Z87.01 ; Angioneurotic edema, initial encounter T78.3XXA and Rash and other nonspecific skin eruption [address] [address] 12/03/2024 Juan Alberto Guillen Assessments Encounter Date Diagnosis (ICD Code) Assessment Notes Treatment Notes Treatment Clinical Notes Section Notes 11/01/2024 Immunodeficiency, unspecified (ICD-10 - D84.9) Due to the fact that he has had recurring deep-seated infections mainly pneumonia we will initiate an immunodeficiency workup. This will include the following: CBC, chemistry, sed rate, TSH, IgG, A, M, antidiphtheria, antitetanus, antihib, antipneumococcal antibody titers 23. 11/01/2024 Emphysema, unspecified (ICD-10 - J43.9) Continue per pulmonary 01/22/2025 Immunodeficiency, unspecified (ICD-10 - D84.9) Laboratory testing [...] will review on follow-up in 2 months. 01/22/2025 Emphysema, unspecified (ICD-10 - J43.9) Continue per pulmonary 03/28/2025 Immunodeficiency, unspecified (ICD-10 - D84.9) Laboratory [...] (ICD-10 - Z87.01) PIDD work-up as above 01/22/2025 Personal history of pneumonia (recurrent) (ICD-10 - Z87.01) PIDD work-up as above 11/01/2024 Personal history of pneumonia (recurrent) (ICD-10 - Z87.01) PIDD work-up as above 01/22/2025 Angioneurotic edema, initial encounter (ICD-10 - T78.3XXA) For his recurrent episodes of facial swelling and erythema I ordered the following: C4, C1 esterase inhibitor functional level which returned normal. I did give him prednisone last visit which for some reason they did not get from the pharmacy but he has had no reoccurrence of significant facial swelling. 03/28/2025 Angioneurotic edema, initial encounter (ICD-10 - T78.3XXA) For his recurrent episodes of facial swelling and erythema I ordered the following: C4, C1 esterase inhibitor functional level which returned normal. I did give him prednisone last visit which for some reason they did not get from the pharmacy but he has had no reoccurrence of significant facial swelling. 11/01/2024 Angioneurotic edema, initial encounter (ICD-10 - T78.3XXA) For his recurrent episodes of facial swelling and erythema I have ordered the following: C4, C1 esterase inhibitor functional level. For his recurrent swelling he will be given prednisone 20 mg a day to take for 3 days at a time if needed for reoccurrence of swelling which has resulted in improvement in the past. Total of 10 tablets will be prescribed 11/01/2024 Rash and other nonspecific skin eruption (ICD-10 - R21) Zyrtec increase Zyrtec to 10 mg twice twice a day. 03/28/2025 Rash and other nonspecific skin eruption (ICD-10 - R21) Zyrtec increase Zyrtec to 10 mg twice twice a day. 01/22/2025 Rash and other nonspecific skin eruption (ICD-10 - R21) Zyrtec increase Zyrtec to 10 mg twice twice a day. Plan Of Treatment Pending Test Test Name Order Date -Immunoglobulins A/G/M, Qn, Ser 11/02/19 25 -Complement C4, Serum 11/01/2024 -Complement, Total (CH50) ([id number]) 11/01 -C1 Esterase Inhibitor, Serum 11/01/2024 -CBC With Differential/Platelet 11/02/19 25 -C1 Esterase Inhibitor, Func 11/01/2024 -Haemophilus influenzae B IgG 11/01/2024 -Tetanus/Diphtheria Ab 11/01/2024 -CMP14+ESR Dennis+CRP+CBC/Plt 11/01/2024 STREPTOCOCCUS PNEUMONIAE IGG AB (23 SERO TYPES) 01/22/2025 -Pneumococcal Ab (23 Serotype) STREPTOCOCCUS PNEUMONIAE AB (IGG) (23 SE ROTYPES) 01/22/2025 TSH reflex to T4F 11/01/2024 Next Appt Details Provider Name:Juan Alberto Kramer Wilmer, 04/25/2025 11:00:00 AM, [address] [facility], [address], [place], [address], Insurance Providers Payer Name Payer Address Payer Phone Subscriber Number Group Number Insured Name Patient Relationship to Insured Coverage Start Date Coverage End Date [employer] [address] [place] [address] [id number] Mason Keys Self - patient is the insured 4 Medical (General) History Medical History History ICD Code AFIB Chronic obstructive pulmonary disease, u nspecified J44.9 Hospitalization History Reason Date(Month/Year) respiritory issues Cellulitis
--- OUTSIDE RECORDS SUMMARY | 2025-04-09 16:50 | XMS_ITS | Clinical Summary ---
Author Organization [facility] Address [address] [place] [address] Care Team Providers Care Legal Technician Name Role Phone FunkCleo DO Primary Care Provider [phone] Source Comments [facility],non-owned Affiliates and Associated Physician Practices is amultiple site organization consisting of ambulatory clinics and hospital sitesin [place], [place], [place] and [place]. This disclosure is being madepursuant to the Care Everywhere program and may not contain all information available regarding this patient. 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 02/07/2019 delirium Tobramycin Eye Itching 10/23/2019 [...] fluticasone propionate (Flonase) 50 MCG/ACT nasal spray [place] 1 (one) spray into each nostril once [...] times daily for 30 days 4 Active Additional Information Patient taking differently:25 mg OralPRN, Itching, Reported on 04/04/2025 venlafaxine (Effexor) 37.5 MG tablet Take 1 (one) tablet by mouth once daily for 30 days 4 Active Additional Information Patient not taking.Reported on 04/04/2025 lactobacillus (Lactinex) PACK granules Take 1 (one) packet by mouth 3 times daily 4 Active senna (Senokot) 8.6 MG tablet Take 1 (one) tablet by mouth 2 times daily as needed for Constipation 4 Active Additional Information Patient not taking.Reported on 04/04/2025 rifAXIMin (Xifaxan) 550 MG tablet Take 1 (one) tablet by mouth 2 times daily 4 Active Additional Information Patient not taking.Reported on 04/04/2025 gabapentin (Neurontin) 300 MG capsule Take 1 (one) capsule by mouth 2 times daily 4 Active budesonide (Pulmicort) 0.5 MG/2ML nebulizer suspension Inhale 2 mL by mouth 2 times daily 5 Active Hospital, Clinic, or Other Facility Administered Medication Ordered Dose Route Frequency Start Date End Date Status triamcinolone acetonide (Kenalog-40) injection 80 mgIndications:Primary osteoarthritis of left knee 80 mg IX ONCE 04/04/2025 04/04/20 25 Ended lidocaine (Xylocaine) 1 % injectionIndications:Primar y osteoarthritis of left knee IX ONCE 04/04/2025 04/04/2025 Ended Active Problems Problem Noted Date Diagnosed [...] Encounters Date Type Department Care Team Description 04/04/2025 10:15 AM CDT Office Visit [facility] - Orthopedic Surgery [address], [address] [phone] Beka Cleary, ON AIR PERSONALITY-CORE MAN Primary osteoarthritis of left knee (Primary Dx) 03/19/2025 Travel 03/11/2025 11:00 AM CDT Office Visit [facility] - GI [address] [facility] [place] [phone] Twin Miller MD 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 Gender Identity Not on file Sexual Orientation Not on file Last Filed Vital Signs Vital Sign Reading Time Taken Comments Blood Pressure 112/75 03/11/2025 10:41 AM CDT Pulse 78 03/11/2025 10:41 AM CDT Temperature 36.4 C (97.6 F) 03/11/2025 10:41 AM CDT Respiratory Rate 12 08/23/2024 1:30 PM CDT Oxygen Saturation 100% 03/11/2025 10:41 AM CDT Inhaled Oxygen Concentration 21% 10/25/2023 1 1:35 PM CDT Weight 109.8 kg (242 lb) 04/04/2025 10:04 AM CDT Height 180.3 cm (5' 11) 04/04/2025 10:04 AM CDT Body Mass Index 33.75 04/04/2025 10:04 AM CDT Plan of Treatment Upcoming Encounters Date Type Department Care Team (Late st Contact Info) Description 07/24/2025 10:15 AM SALES DEVELOPMENT REPRESENTATIVE Office Visit [facility] - Orthopedic Surgery [facility] [place] [address] Larry Alexander MD [address] [place] [address] 09/16/2025 10:[address] [facility] [address] [place] [phone] Twin Miller MD [address] [facility] 2L DIV [place] [address] 09/16/2025 11:30 AM CDT Office Visit [facility] - GI [address] [facility] [place] [phone] Twin Miller MD [address] [facility] [address] DIV [place]STR[place] [address] Health Maintenance Due Date Last Done Comments DTAP/TDAP/TD VACCINES (1 - Tdap) 11/11/1967 PNEUMOCOCCAL VACCINE 50+ (1 of 2 - PCV) 11/11/1967 ZOSTER VACCINE (1 of 2) 1998 HEPATITIS B VACCINE (1 of 3 - Risk 3-dose series) 2008 Respiratory Syncytial Virus (RSV) Vaccine Pt: or over 60 yrs (1 - 1-dose 75+ series) 11/11/2023 MEDICARE AWV CALENDAR YEAR 2024 COVID-19 VACCINE ( season) 2025 06/13/2023, 07/21/2022, 12/15/2021, Additional history exists HEPATITIS C SCREENING Completed 07/14/2017 DEPRESSION SCREENING Completed 12/25/2024, 05/15/20 24 INFLUENZA VACCINE Completed 03/07/2025, , 03/10/2023, Additional history exists HIB VACCINE Aged Out No longer eligi [...] Author Medication Management General On track( 025 10:53 AM CDT) No Monty Gentile, RN Note: Expected [...] at the optimum level for you. Interventions: Safety General On track( 025 10:53 AM CDT) No Yesenia Daniels, DONTAE Note: Expected end date: ongoing Interventions: Your nurse will assess your risk for falls/injury each visit Use appropriate and safe transfer methods Make sure appropriate safety devices are available and within reach Review the fall prevention instruction sheet given to you during your visit Be aware of medications that could predispose you to falling Wear non-skid/rubber sole footwear Wear glasses/hearing aid Keep personal items within easy reach Use some light at night in your room Keep walking paths clutter free and clear Maintain an unobstructed path to the bathroom Medical Devices Implanted Type Area Dress Fitter Device Identifier Shelf Expiration Date Model / Serial / Lot Trident 10 Deg X 3 Insert 36mm Id Implanted:Qty: 1 on 02/08/2019 by Larry Alexander MD at [facility] [place] [employer] 06/23/2021 623-100 [id number] / / [id number] Description:36MM POLYETHYLEN E INSERT C-Taper Cocr Lfit Head 36mm/0 Implanted:Qty: 1 on 02/08/2019 by Larry Alexander MD at [facility] [place] [facility] [employer] 02/12/2023 06-3600 / / [id number] Description:LEFT FEMORAL HEA D 36MM Procedures Procedure Name Priority Date/Time Associated Diagnosis Comments FL DRAIN/INJECT LARGE JOINT/BURSA Routine 04/04/2025 12:15 PM CDT Primary osteoarthritis of left knee PT-INR Routine 03/11/2025 10:15 AM CDT 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) Nonalcoholic steatohepatitis (RAYGOZA) Cirrhosis of liver without ascites, unspecified hepatic cirrhosis type (HCC) Atrial fibrillation, unspecified type (HCC) Lower extremity edema 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) COMPREHENSIVE METABOLIC PANEL Routine 03/11/2025 10:15 AM CDT 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) Nonalcoholic steatohepatitis (RAYGOZA) Cirrhosis of liver without ascites, unspecified hepatic cirrhosis type (HCC) Atrial fibrillation, unspecified type (HCC) Lower extremity edema 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) CBC W AUTO DIFFERENTIAL Routine 03/11/2025 10:15 AM CDT Liver cirrhosis secondary to RAYGOZA (HCC) Nonalcoholic steatohepatitis (RAYGOZA) Cirrhosis of liver without ascites, unspecified hepatic cirrhosis type (HCC) Atrial fibrillation, unspecified type (HCC) Lower extremity edema 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) ALPHA FETOPROTEIN BLOOD TUMOR MARKER Routine 03/11/2025 10:15 AM CDT 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) Nonalcoholic steatohepatitis (RAYGOZA) Cirrhosis of liver without ascites, unspecified hepatic cirrhosis type (HCC) Atrial fibrillation, unspecified type (HCC) Lower extremity edema 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) US ABDOMEN LIMITED Routine 03/11/2025 10 :09 AM CDT 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 (HCC) Nonalcoholic steatohepatitis (RAYGOZA) Cirrhosis of liver without ascites, unspecified hepatic cirrhosis type (HCC) Atrial fibrillation, unspecified type (HCC) Lower extremity edema 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 The appropriate site and side was confirmed with the patient. The patient was positioned in the appropriate position. The left knee injection site was located and marked at the peripatellar portal. The surrounding skin was prepped with betadine and alcohol. Ethyl Chloride was used to anesthetize the skin. A syringe with 3mL's of 1% Lidocaine was used to inject the subcutaneous tissue down into the joint space. Upon entering the joint space 0 mL's of synovial fluid was aspirated. A second syringe with a combination of 5mL's of 1% Lidocaine + 2mL's of 40mg Kenalog was injected into the joint space. A sterile bandage was placed. The patient tolerated the procedure well without complications. Post-injection instructions were given to the patient. Beka EAGLE PROCEDURE/MINOR SURGICAL ORDERABLES Final Result * ALPHA FETOPROTEIN BLOOD TUMOR MARKER (03/11/2025 10:15 AM CDT) Alpha-Fetoprote in Tumor Marker <2.0 <=8.3 ng/mL 03/11/2025 11:43 AM CDT [facility] Comment: AFP values will vary depending on testing procedure used. Results are not comparable across different methods. AFP values obtained by [facility] using an Farias Alinity Immunoassay. Blood BLOOD SPECIMEN / Unknown Lab Venipuncture / Unknown 03/11/2025 10:15 AM CDT 03/11/2025 10:51 AM CDT Twin Miller MD LAB - CHEMISTRY ORDERA BLES Final Result [facility] [address] [place] [address], [facility] [phone] * (ABNORMAL) PT-INR (03/11/2025 10:15 AM CDT) Pathologist [facility] PT 15.8(H) 12.1 - 14.8 Seconds 03/11/2025 11:07 AM [facility] INR 1.2 See Comment 03/11/2025 11:07 AM [facility] Comment:The suggested therap eutic range for standard coumadin (warfarin) therapy is an INR of 2.0-3.0. For high-risk patients (Mechanical Mitral Valve Prosthesis, etc.), the suggested prophylactic therapeutic range is an INR of 2.5-3.5. Blood BLOOD SPECIMEN / Unknown Lab Venipuncture / Unknown 03/11/2025 10:15 AM CDT 03/11/2025 11:07 AM T us Twin Miller MD LAB - COAGULATION ROYCE KLINE Final Result [facility] [address] [place] [phone] [phone] * (ABNORMAL) CBC WITH DIFFERENTIAL (03/11/2025 10:15 AM T) Pathologist [facility] WBC 9.4 4.0 - 10.7 x10E9/L 03/11/2025 11:03 AM [facility] RBC Count 4.28(L) 4.30 - 5.80 x10E12/L 03/11/2025 11:03 AM [facility] Hemoglobin 12.7(L) 13.3 - 17.5 g/dL 03/11/2025 11:03 AM [facility] Hematocrit 40.9 38.7 - 51.1 % 03/11/2025 11:03 AM [facility] MCV 95.6 80.0 - 98.0 fL 03/11/2025 11:03 AM [facility] MCH 29.7 26.7 - 33.6 pg 03/11/2025 11:03 AM [facility] MCHC 31.1(L) 31.7 - 36.3 g/dL 03/11/2025 11:03 AM [facility] RDW-CV 14.4 11.3 - 14.8 % 03/11/2025 11:03 AM [facility] Platelet Count 128(L) 150 - 420 x10E9/L 03/11/2025 11:03 AM [facility] MPV 12.8(H) 7.8 - 11.4 fL 03/11/2025 11:03 AM [facility] Neutrophil % 71.7 41.0 - 74.0 % 03/11/2025 11:03 AM [facility] Lymphocyte % 8.1(L) 17.0 - 47.0 % 03/11/2025 11:03 AM [facility] Monocyte % 10.2 3.0 - 11.0 % 03/11/2025 11:03 AM [facility] Eosinophil % 8.5(H) 0.0 - 7.0 % 03/11/2025 11:03 AM [facility] Basophil % 0.5 0.0 - 1.6 % 03/11/2025 11:03 AM [facility] Immature Granulocytes % 1.0 0.0 - 1.0 % 03/11/2025 11:03 AM [facility] Neutrophil Absolute 6.73 1.60 - 7.50 x10E9/L 03/11/2025 11:03 AM [facility] Lymphocyte Absolute 0.76(L) 1.00 - 4.40 x10E9/L 03/11/2025 11:03 AM [facility] Monocyte Absolute 0.96 0.15 - 1.00 x10E9/L 03/11/2025 11:03 AM [facility] Eosinophil Absolute 0.80(H) 0.00 - 0.60 x10E9/L 03/11/2025 11:03 AM [facility] Basophil Absolute 0.05 0.00 - 0.13 x10E9/L 03/11/2025 11:03 AM [facility] Blood BLOOD SPECIMEN / Unknown Lab Venipuncture / Unknown 03/11/2025 10:15 AM CDT 03/11/2025 10:51 AM CDT us Twin Miller MD LAB - HEMATOLOGY ORDER [place] Final Result [facility] [address] [place] [address], [facility] [phone] * (ABNORMAL) COMPREHENSIVE METABOLIC PANEL (03/11/2025 10:15 AM CDT) BUN 47(H) 7 - 26 mg/dL 03/11/2025 11:59 AM [facility] Creatinine 1.85(H) 0.71 - 1.16 mg/dL 03/11/2025 11:59 AM [facility] Sodium 143 136 - 145 mmol/L 03/11/2025 11:59 AM [facility] Potassium 4.4 3.5 - 4.5 mmol/L 03/11/2025 11:59 AM [facility] Chloride 103 98 - 107 mmol/L 03/11/2025 11:59 AM [facility] CO2 26 22 - 29 mmol/L 03/11/2025 11:59 AM [facility] Glucose 122(H) 70 - 99 mg/dL 03/11/2025 11:59 AM [facility] Calcium 9.4 8.4 - 10.2 mg/dL 03/11/2025 11:59 AM [facility] Protein Total 6.6 6.0 - 8.3 g/dL 03/11/2025 11:59 AM [facility] Albumin 3.5 3.4 - 5.0 g/dL 03/11/2025 11:59 AM [facility] Bilirubin Total 0.7 0.2 - 1.2 mg/dL 03/11/2025 11:59 AM [facility] Alkaline Phosphatase 109 40 - 150 U/L 03/11/2025 11:59 AM [facility] ALT 33 5 - 55 U/L 03/11/2025 11:59 AM [facility] AST 28 5 - 34 U/L 03/11/2025 11:59 AM [facility] Anion Gap 14 6 - 16 03/11/2025 11:59 AM CDT [facility] BUN/Creatinine Ratio 25(H) 7 - 23 03/11/2025 11:59 AM CDT [facility] Osmolality Calculated 310(H) 275 - 295 mOsm/kg 03/11/2025 11:59 AM CDT [facility] Albumin/Globulin Ratio 1.1 1.1 - 2.3 03/11/2025 11:59 AM CDT [facility] eGFR by CKD-EPI 37(L) >=90 mL/min/1.7 3 m2 03/11/2025 11:59 AM CDT [facility] Comment:Estimated Glomerular Filtration Rate (eGFR) calculated using the CKD-EPI Creatinine Equation (2020), per the National Kidney Foundation and [place] [employer] of Nephrology recommendations. Blood BLOOD SPECIMEN / Unknown Lab Venipuncture / Unknown 03/11/2025 10:15 AM CDT 03/11/2025 10:51 AM CDT us Twin Miller MD LAB - CHEMISTRY ORDERA BLES Final Result [facility] [address] [place] [address], [facility] [phone] * US Abdomen Limited (03/11/2025 10:09 AM CDT) Anatomical Region Laterality Modality Abdomen Ultrasound 03/11/2025 11:3 6 AM CDT Impressions 03/11/2025 12:09 PM CDT Impression: Liver Visualization Score C: Severe limitations. US-1 Negative. Repeat surveillance US in 6 months. 1.Hepatic cirrhosis without discrete hepatic observations. 2.Cholelithiasis without acute cholecystitis. Report dictated by Lg Costello MD, (residential solar sales consultant). > Dictated by [employer], Marcelo Leon MD have personally reviewed and interpreted this examination/study. 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 Liver Observations: None. Main Portal Vein: Color Doppler evaluation demonstrates patency of the main portal vein. Hepatic Veins: Color Doppler evaluation demonstrates patency of the hepatic veins. Bile Ducts: The common bile duct is nondilated, measuring 4 mm. No intrahepatic or extrahepatic biliary dilation. Gallbladder: Gallstones are seen within the gallbladder without pericholecystic fluid. Sonographic Maria's sign is negative. Ascites: No ascites is present. Spleen: The spleen is not well visualized but measures approximately 9.6 cm. Pancreas: The pancreas is obscured by overlying bowel gas. Right Kidney: The right kidney measures 9.5 cm in length. Limited views of the right kidney reveal no evidence of nephrolithiasis or hydronephrosis. No discrete mass identified. 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 Liver Observations: None. Main Portal Vein: Color Doppler evaluation demonstrates patency of the main portal vein. Hepatic Veins: Color Doppler evaluation demonstrates patency of the hepatic veins. Bile Ducts: The common bile duct is nondilated, measuring 4 mm. No intrahepatic or extrahepatic biliary dilation. Gallbladder: Gallstones are seen within the gallbladder without pericholecysticfluid. Sonographic Maria's sign is negative. Ascites: No ascites is present. Spleen: The spleen is not well visualized but measures approximately 9.6 cm. Pancreas: The pancreas is obscured by overlying bowel gas. Right Kidney: The right kidney measures 9.5 cm in length. Limited views of the right kidney reveal no evidence of nephrolithiasis or hydronephrosis. No discrete mass identified. Impression: Liver Visualization Score C: Severe limitations. US-1 Negative. Repeat surveillance US in 6 months. 1.Hepatic cirrhosis without discrete hepatic observations. 2.Cholelithiasis without acute cholecystitis. Report dictated by Lg Costello MD, (residential solar sales consultant). > Dictated by [employer], Marcelo Leon MD have personally reviewed and interpreted this examination/study. > Interpreting Provider: Marcelo Leon MD on 512:09 PM Twin Mikki Miller MD ORDERABLES Final Result * HEPATITIS C ANTIBODY (07/14/2017 10:11 PM SALES DEVELOPMENT REPRESENTATIVE) Pathologist [facility] Hepatitis C Antibody Non-react [facility] Comment: Hepatitis C Antibody screen indicates no serologic evidence of past or current infection with Hepatitis C Virus. Patients with unexplained liver disease who are immunocompromised or suspected of having acute Hepatitis C infection may benefit from Nucleic Acid Test (SUNIL) for Hepatitis C Viral RNA to confirm Hepatitis C status. 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 Comment:-rectal screen 04/201904/29/2019 10/17/2023 Insurance [employer] MED[employer]ARE [facility] SELF PAY NO INSURANCE Member Subscriber Plan / Payer (Ef fective for All Dates) Name:Mason Jang Member ID:Not on file Relation to Subscriber:Not on file Name:MASON JANG Subscriber ID:Not on file (Home) Address: [address] [place] [address] Payer ID:Not on file Group ID:Not on file Type:Self Pay Address: [place], [place] [facility] [facility] Address: [facility] [id number] [place] [phone] Advance Directives * Full Code (Latest Code [...] 2:01 PM 09/09/2017 2:08 PM Care Teams Legal Technician Relationship Specialty Start Date End Date Cleo Funk DO [address] [place] [address] PCP - General Family Medicine 05/15/24
--- OUTSIDE RECORDS SUMMARY | 2025-04-09 16:51 | XMS_ITS | Clinical Summary ---
Author Organization [facility] [address] Address [address] [place] [address] Care Team Providers Care Rn Ent Name Role Phone Cleo Funk DO Primary Care Provider + Puneet Powell MD Unavailable [phone] Epi [place] MD Unavailable [phone] Allergies Active Allergy Reactions Criticality Noted Date Comments Clindamycin Eye irritation,Rash High 08/01/2023 House Dust Mite Swelling Medium 09/06/2024 Levofloxacin Unknown,Eye irritation High 04/24/2019 red around the eyes, puffy, itchy eyes swollen/ red Penicillins Hives High 10/08/2024 Patient received ceftriaxone in January 2024 Patient received cefepime in November 2023 Pepper (Genus Capsicum) Nausea & Vomiting High 10/08/2024 Scopolamine Delusions,Other (See comments),Hallucinat ions Medium 02/07/2019 delirium delirious Tobramycin Eye irritation,Swelling Medium 10/23/2019 red around the eyes, puffy, itchy Medications acetaminophen (TYLENOL) 325 mg tablet Take 2 tablets (650 mg total) by mouth every 4 (four) hours as needed for pain Active apixaban (ELIQUIS) 5 mg tabletIndication s:atrial fibrillation,VTE Prophylaxis Take 1 tablet (5 mg total) by mouth 2 (two) times a day. 60 tablet 11/10/19 18 Active aspirin (ASPIRIN LOW DOSE) 81 mg tabletIndication s:Myocardial Reinfarction Prevention Take 1 tablet (81 mg total) by mouth daily. 30 tablet 11/10/19 18 Active bumetanide (BUMEX) 0.5 mg tablet Take 1 tablet (0.5 mg total) by mouth daily. 30 tablet 11/10/19 18 Active tamsulosin (FLOMAX) 0.4 mg extended release capsule Take 1 capsule (0.4 mg total) by mouth nightly. 30 capsule 11/10/19 18 Active camphor-menthol (SARNA) lotion Apply topically as needed for itching. 222 mL 11/10/19 18 Active miconazole 2 % powder Apply topically 2 (two) times a day. 70 g 11/10/19 18 Active albuterol (PROVENTIL,ROSEMARIE DIVINA) 2.5 mg/0.5 mL solution for nebulizationIndi cations:Bronchos pasm Prevention Take 1 mL (5 mg total) by nebulization every 6 (six) hours as needed (resp failure). 25 each 11/10/19 18 Active baclofen (LIORESAL) 10 mg tablet Take 1 tablet (10 mg total) by mouth 3 (three) times a day with meals. 90 tablet 11/11/19 18 Active oxygenIndication s:Dyspnea 2 L Active triamcinolone (KENALOG) 0.1 % cream APPLY A THIN LAYER TOPICALLY FOUR TIMES DAILY TO THE AFFECTED AREA 3 02/02/20 18 Active omeprazole (PriLOSEC) 40 mg capsule Take 1 capsule (40 mg total) by mouth daily Active doxycycline (VIBRAMYCIN) 100 mg capsule Take 1 tablet/capsule (100 mg total) by mouth daily Active benzonatate (TESSALON) 200 mg capsule Take 1 capsule (200 mg total) by mouth 3 (three) times a day as needed for cough Active Daliresp 500 mcg tablet 02/29/20 20 Active ferrous fumarate 325 mg (106 mg iron) tablet Take 1 tablet (325 mg total) by mouth daily with breakfast Active cetirizine (ZyrTEC) 10 mg tablet Take 1 tablet (10 mg total) by mouth daily Active metoprolol XL (TOPROL-XL) 50 mg extended release tablet Take 1 tablet (50 mg total) by mouth daily Active spironolactone (ALDACTONE) 25 mg tablet Take 0.5 tablets (12.5 mg total) by mouth daily 01/28/20 21 Active GABAPENTIN ORAL Take 300 mg by mouth 2 (two) times a day Active FOLIC ACID ORAL Take 1 tablet by mouth daily 02/12/20 22 Active cholecalciferol 25 mcg (1,000 unit) tablet Take 2 tablets (2,000 Units total) by mouth daily Active magnesium oxide 400 mg magnesium capsule Take by mouth Active fluticasone propionate (FLONASE) 50 mcg/actuation nasal spray Administer 2 sprays into each nostril daily 08/02/19 24 Active mesalamine (ROWASA) 4 gram/60 mL enema INSERT 60MLS (4G) RECTALLY TWICE A DAY FOR 90 DAYS 12/27/19 24 Active vitamin B complex capsule Take 1 capsule by mouth daily 100 mg Active acidophilus-pect in, citrus 100 million cell-10 mg capsule Take by mouth 3 (three) times a day Active predniSONE (DELTASONE) 10 mg tablet Take by mouth Active HYDROcodone-acet aminophen (NORCO) 5-325 mg per tablet Take 1 tablet by mouth nightly at bedtime. 12/07/19 25 Active tacrolimus (PROTOPIC) 0.1 % ointment Apply topically 09/18/19 25 Active acetaminophen 500 mg capsule Take 1 capsule (500 mg total) by mouth 10/22/19 25 Active spironolactone (ALDACTONE) 25 mg tablet Take 0.5 tablets (12.5 mg total) by mouth 06/13/19 25 Active albuterol 2.5 mg /3 mL (0.083 %) nebulizer solution Inhale 3 mL (2.5 mg total) 05/20/20 24 Active aspirin 81 mg enteric coated tablet Take 1 tablet (81 mg total) by mouth 05/21/20 19 Active baclofen (LIORESAL) 10 mg tablet by other route 06/13/19 25 Active pyridoxine (VITAMIN B-6) 100 mg tablet Take 1 tablet (100 mg total) by mouth 03/04/20 21 Active ferrous sulfate ER 324 mg (65 mg iron) EC tablet Take 1 tablet (324 mg total) by mouth 04/05/20 19 Active gabapentin (NEURONTIN) 300 mg capsule Take 1 capsule (300 mg total) by mouth 01/19/20 24 Active L.acid,paracas-B .anima-S.therm 16 billion cell capsule Take by mouth 10/09/19 25 Active dupilumab (DUPIXENT) 300 mg/2 mL pen injector Inject under the skin 02/13/20 25 Active budesonide (PULMICORT) 0.5 mg/2 mL nebulizer solution Take 2 mL (0.5 mg total) by nebulization 2 (two) times a day Rinse mouth with water after use. Do not swallow. 120 mL 03/04/20 25 Active ipratropium-albu teroL (DUO-NEB) 0.5-2.5 mg/3 mL nebulizer solution Take 3 mL by nebulization every 6 (six) hours 360 mL 11 03/04/20 25 026 Active nystatin powder Apply topically 4 (four) times a day 025 Discontin ued(Mir nt Reported) Active Problems Problem Noted Date Diagnosed Date Arteriosclerosis of coronary artery 03/04/2025 Benign essential hypertension 03/04/2025 CHF (congestive heart failure) 03/04/2025 Overview (03/04/2025): has recovered had with atrial fib Cholelithiasis 03/04/2025 Chronic kidney disease, stage 3b 03/04/2025 Claudication in peripheral vascular disease 02/05 Diabetes mellitus 03/04/2025 Hyperlipidemia 03/04/2025 Obstructive sleep apnea syndrome 03/04/2025 Overview (03/04/2025): / with bleed in oxygen of 2 L Osteoarthritis 03/04/2025 Non-alcoholic cirrhosis 08/17/2018 Overview (03/04/2025): US 05/2018, no lesions EGD 2017, no varices 08/26/20 Fibroscan not technically possible. Former smoker 10/25/2017 Overview (10/25/2017): May meet [...] for diskitis prior to his admission to [facility] Assessment & Plan (11/05/2017 6:40 AM CDT): Completed debridement, prolonged antibiotic therapy for an L1 diskitis. Continue physical therapy, pain control Methicillin resistant Staphylococcus aureus infe ction 08/29/2017 Chronic atrial fibrillation 02/22/2017 Overview (03/04/2025): rate controlled Assessment & Plan (11/09/2017 8:12 AM CDT): Normal sinus rhythm by exam. Monitor for bleeding ( had bleeding around his tracheostomy, skin tears while at [facility]). Continue amiodarone, aspirin, Lipitor, metoprolol, apixaban Resolved Problems Problem Noted Date Diagnosed Date Resolved Date History of stroke 03/04/2025 03/04/2025 Abscess 03/04/2025 03/04/2025 Obesity (BMI 30-39.9) 03/04/20252024 Obesity 03/04/2025 03/04/2025 Finger fracture, right 03/04/202503/04 Foot fracture, left 03/04/2025 03/04/20 Pain in left knee 03/04/2025 03/04/2025 Irritant contact dermatitis due to other agents 03/04/2025 03/04/2025 Contact dermatitis 03/04/2025 Unspecified contact dermatit is, unspecified cause 03/04/2025 03/04/2025 Left knee pain 03/04/2025 03/04/2025 Left leg pain 03/04/2025 03/04/2025 Abnormal EKG 03/04/2025 03/04/2025 Abrasion, left lower leg, initial encounter 03/04/2025 03/04/2025 Acute on chronic congestive heart failure 03/04/2025 03/04/2025 Acute UTI 03/04/2025 03/04/2025 Acute viral syndrome 03/04/2025 025 Allergic conjunctivitis 03/04/202502/05 Atherosclerotic heart diseas e of [place] coronary artery without angina pectoris 03/04/2025 03/04/2025 Essential (primary) hypertension 03/04/2025 03/04/2025 Essential hypertension 03/04/202503/04 Benign essential microscopic hematuria 03/04/2025 03/04/2025 Benign prostatic hyperplasia with urinary obstruction 03/04/2025 03/04/2025 Blood in stool, [place] 03/04/20252024 Chronic back pain 03/04/2025 03/04/2025 Low back pain 03/04/2025 03/04/2025 Chronic diastolic heart failure 03/04/2025 03/04/2025 Overview (03/04/2025): Echocardiogram 10/2023 demonstrated EF of 60-65% grade 1 diastolic dysfunction, atrial fibrillation, by atrial enlargement difficult study Chronic hypoxemic respiratory failure 03/04/2025 03/04/2025 Chronic kidney disease 03/04/202503/04 Closed T12 spinal fracture 03/04/2025 0 03/04/2025 Clostridioides difficile infection 03/04/2025 03/04/2025 Dehydration 03/04/2025 03/04/2025 Depression 03/04/2025 03/04/2025 Diarrhea 03/04/2025 03/04/2025 Disease due to severe acute respiratory syndrome coronavirus 2 (SARS-CoV-2) 03/04/202502/05 Edema of lower extremity 03/04/2025 Effusion of knee joint 03/04/202503/04 Elevated blood pressure reading 03/04/2025 03/04/2025 Elevated PSA 03/04/2025 03/04/2025 Elevated troponin 03/04/2025 03/04/2025 Exertional dyspnea 03/04/2025 Hypokalemia 03/04/2025 03/04/2025 Hypotension 03/04/2025 03/04/2025 Influenza A 03/04/2025 03/04/2025 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 03/04/2025 Intractable low back pain 03/04/2025 Iron (Fe) deficiency anemia 03/04/2025 03/04/2025 Bilateral cellulitis of lower leg 03/04/2025 03/04/2025 Cellulitis of right leg 03/04/202502/05 Left leg cellulitis 03/04/2025 03/04/20 25 Lethargic 03/04/2025 03/04/2025 Leukocytosis 03/04/2025 03/04/2025 Carrier or suspected carrier of methicillin resistant Staphylococcus aureus 03/04/2025 03/04/20 25 Edema, unspecified 03/04/2025 Fluid overload 03/04/2025 03/04/2025 Cirrhosis 03/04/2025 03/04/2025 Overview (03/04/2025): Secondary to RAYGOZA Chronic anemia 03/04/2025 03/04/2025 Other atopic dermatitis 03/04/202502/05 Eczema 03/04/2025 03/04/2025 Facial dermatitis 03/04/2025 03/04/2025 Phimosis 03/04/2025 03/04/2025 Physical deconditioning 03/04/202502/05 Polyarticular osteoarthritis 03/04/2025 03/04/2025 Radiculopathy, site unspecified 03/04/2025 03/04/2025 Rash and nonspecific skin eruption 03/04/2025 03/04/2025 Rectal bleeding 03/04/2025 03/04/2025 Right shoulder strain 03/04/20252024 Septic arthritis of hip 03/04/2025 0902/2025 Other secondary thrombocytopenia 03/04/2025 03/04/2025 Thrombocytopenia 03/04/2025 03/04/2025 Overview (03/04/2025): Chronic, 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, 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 Ulcerative colitis 03/04/2025 Paroxysmal atrial fibrillation 03/04/2025 03/04/2025 Acute exacerbation of chroni c obstructive pulmonary disease 03/04/2025 03/04/2025 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 03/04/2025 03/04/2025 Chronic obstructive pulmonary disease 03/04/2025 03/04/2025 Chronic obstructive pulmonar y disease, unspecified 03/04/2025 03/04/2025 Hypoxia 03/04/2025 03/04/2025 Other asthma 03/04/2025 03/04/2025 Respiratory failure 03/04/2025 03/04/20 25 Recurrent pneumonia 03/04/2025 03/04/20 25 Other pruritus 03/04/2025 03/04/2025 Atopic dermatitis, unspecified 03/04/2025 03/04/2025 Sepsis due to other etiology 10/12/2023 03/04/2025 Benign prostatic hyperplasia 06/06/2019 03/04/2025 Infection of right prosthetic hip joint 02/02/2019 03/04/2025 Hyponatremia 10/27/2017 03/04/2025 Assessment & Plan (11/07/2017 7:12 AM CDT): Hyponatremia, resolved. Suspect dilutional. Monitor renal function with diuresis. Still with some edema on exam. Pneumonia 10/25/2017 03/04/2025 Assessment & Plan (11/09/2017 8:10 AM CDT): Completed treatment for pneumonia, empyema prior to transfer to [facility]. Finished Bactrim for stenotrophomonas pneumonia here. Continue to observe off antibiotics. Hypoxemia 09/06/2017 03/04/2025 Extradural and subdural abscess, unspecified 8 03/04/2025 Acute on chronic respiratory failure with hypoxia and hypercapnia 08/29/2017 03/04/2025 Acute renal failure 08/29/2017 03/04/20 25 Overview (03/04/2025): resolved and creatinine is 1.5 Pleural effusion on left 08/29/2017 Discitis of lumbar region 08/29/2017 Sepsis 08/27/2017 03/04/2025 Severe sepsis without septic shock (CODE) 08/27/2017 03/04/2025 Acute embolism and thrombosi s of deep vein of lower extremity 07/25/2017 03/04/2025 Bacteremia 07/25/2017 03/04/2025 Vitamin D deficiency 07/08/2017 025 Local infection of skin and subcutaneous tissue 04/18/2017 03/04/2025 Unspecified staphylococcus a s the cause of diseases classified elsewhere 04/18/2017 03/04/2025 Other specified anemias 04/06/201702/05 Impetiginization of other dermatoses 02/25/2017 03/04/2025 Localized edema 02/25/2017 03/04/2025 Other specified dermatitis 02/25/2017 0 03/04/2025 Venous insufficiency (chronic) (peripheral) 02/25/2017 03/04/2025 Venous stasis dermatitis of both lower extremities 02/25/2017 03/04/2025 Encounters Date Type Department Care Team Description 04/09/2025 2:45 PM RECEP Office Visit [facility] Cardiology [address] [place] [address] Epi [place] MD Chronic atrial fibrillation (HCC) (Primary Dx) 03/04/2025 11:00 AM CDT Office Visit [facility] Medicine Pulmonary [address] [facility] 8[address] [place] [address] [place] [address] Alyce Feliz NP Respiratory failure with hypercapnia, unspecified chronicity (HCC) (Primary Dx); Chronic congestive heart failure, unspecified heart failure type (HCC); Dyspnea on exertion; Seasonal allergies; GERD without esophagitis; VALENTINA treated with BiPAP; Immunization counseling 03/04/2025 9:44 AM CDT - 03/04/2025 11:59 PM CDT Hospital Encounter [facility] Medicine Pulmonary [address] [place] [address] Chronic obstructive pulmonary disease, unspecified COPD type (HCC) Discharge Disposition: Discharge to home or self care from Last 3 Months Immunizations Immunization Administration Dates Next Due Anthrax 05/12/1999 H1N1 All Forms 07/14/2009 Hep A, Adult 04/16/1997,03/23/1996 IPV 10/04/1976 Influenza, Quad, Adjuvantate d, Intramuscular 03/15/2021 Influenza, Quadrivalent, Hig h Dose, Preservative Free, Intrr 03/10/2023,03/20/2022,04/06/2021 Influenza, Quadrivalent, Rec ombinant, Egg Free, Preservative Free, Intramuscular 03/17/2020 Influenza, Quadrivalent, Spl it, Preservative Free, Intramuscular 03/07/2018 Influenza, Trivalent, High D ose, Split, Preservative Free, Intramuscular 03/06/2024,03/07/2020 Influenza, Trivalent, IM (MDV) 8,02/21/2017,01/27/2016,03/24,03/23/2013,02/23/2012,02/17/2011 ,05/22/2010,05/15/2009,05/22/2008,09/2006,05/16/2006,04/22/2003 Influenza, Unspecified 03/20/2022,2020,03/11/2020,05/03,05/17/2018,03/06/2017,02/09/2017 ,03/29/2016,04/06/2015,03/06/2015,06/2013,03/30/2013 PPD TEST 03/27/2001,04/05/2000,04/14/1999 Pfizer SARS-CoV-2 Monovalent Vaccination (12+ Yrs) PURPLE 04/06/2021 Pneumococcal Conjugate PCV 13 03/24/2015, 015 Pneumococcal Polysaccharide PPV23 01/22/2025,,05/22/2008 RSV Vaccine, Pref, Recombina nt, Subunit, Adjuvanted, PF, IM (Arexvy) 05/11/2023 Sars-CoV-2, Unspecified 12/15/2021,07/16/2020, Td, Not Adsorbed 06/06/1996 Tdap 07/21/2022,,06/06/2009,10/22 Typhoid Live 02/02/2016,12/10/1998,04/06/1984 Yellow Fever 05/12/1999,04/26/1989 ZOSTER LIVE 12/09/2020,,05/01/2013,03/23 ZOSTER Recombinant 04/23/2021,01/21/2021 Surgical History Surgery Date Site/Laterality Comments BACK SURGERY TRACHEOSTOMY TOTAL HIP ARTHROPLASTY Bilateral Medical History Medical History Date Comments Hx Other Medical DJD Chronic obstructive pulmonary disease COPD Hypertension Diabetes mellitus Coronary artery disease A-fib (HCC) A-fib (HCC) history Extradural and subdural absc ess, unspecified 08/29/2017 Obesity 03/04/2025 Irritant contact dermatitis due to other agents 03/04/2025 Pain in left knee 03/04/2025 History of stroke 03/04/2025 Unspecified contact dermatit is, unspecified cause 03/04/2025 Left leg pain 03/04/2025 Finger fracture, right 03/04/2025 Abscess 03/04/2025 Left knee pain 03/04/2025 Foot fracture, left 03/04/2025 Contact dermatitis 03/04/2025 Pneumonia 10/25/2017 Hyponatremia 10/27/2017 Obesity (BMI 30-39.9) 03/04/2025 Acute embolism and thrombosi s of deep vein of lower extremity (HCC) 07/25/2017 Bacteremia 07/25/2017 Vitamin D deficiency 07/08/2017 Local infection of skin and subcutaneous tissue 04/18/2017 Unspecified staphylococcus a s the cause of diseases classified elsewhere 04/18/2017 Other specified anemias 04/06/2017 Venous insufficiency (chroni c) (peripheral) 02/25/2017 Other specified dermatitis 02/25/2017 Impetiginization of other dermatoses 02/25/2017 Localized edema 02/25/2017 Hypoxemia 09/06/2017 Pleural effusion on left 08/29/2017 Acute on chronic respiratory failure with hypoxia and hypercapnia (HCC) 08/29/2017 Discitis of lumbar region 08/29/2017 Acute renal failure 08/29/2017 resolved and creatinine is 1.5 Sepsis (HCC) 08/27/2017 Severe sepsis without septic shock (CODE) 08/27/2017 Venous stasis dermatitis of both lower extremities 02/25/2017 Benign prostatic hyperplasia 06/06/2019 Sepsis due to other etiology (HCC) 10/12/2023 Left leg cellulitis 03/04/2025 Thrombocytopenia 03/04/2025 Chronic, 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, 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 Other asthma 03/04/2025 Other secondary thrombocytopenia 03/04/2025 Atherosclerotic heart diseas e of [place] coronary artery without angina pectoris 03/04/2025 Chronic obstructive pulmonary disease 03/04/2025 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 Edema, unspecified 03/04/2025 Essential (primary) hypertension 03/04/2025 Rash and nonspecific skin eruption 03/04/2025 Radiculopathy, site unspecified 03/04/2025 Chronic obstructive pulmonar y disease, unspecified 03/04/2025 Leukocytosis 03/04/2025 Other atopic dermatitis 03/04/2025 Chronic hypoxemic respirator y failure (HCC) 03/04/2025 Right shoulder strain 03/04/2025 Essential hypertension 03/04/2025 Chronic anemia 03/04/2025 Elevated PSA 03/04/2025 Respiratory failure (HCC) 03/04/2025 Recurrent pneumonia 03/04/2025 Closed T12 spinal fracture (HCC) 03/04/2025 Paroxysmal atrial fibrillation (HCC) 03/04/2025 Hypokalemia 03/04/2025 Elevated blood pressure reading 03/04/2025 Bilateral cellulitis of lower leg 03/04/2025 Chronic back pain 03/04/2025 Allergic conjunctivitis 03/04/2025 Blood in stool, [place] 03/04/2025 Disease due to severe acute respiratory syndrome coronavirus 2 (SARS-CoV-2) 03/04/2025 Acute on chronic congestive heart failure (HCC) 03/04/2025 Acute UTI 03/04/2025 Cirrhosis (HCC) 03/04/2025 Secondary to LISA H Acute exacerbation of chroni c obstructive pulmonary disease (HCC) 03/04/2025 Fluid overload 03/04/2025 Hypoxia 03/04/2025 Benign prostatic hyperplasia with urinary obstruction 03/04/2025 Dehydration 03/04/2025 Elevated troponin 03/04/2025 Effusion of knee joint 03/04/2025 Iron (Fe) deficiency anemia 03/04/2025 Clostridioides difficile infection 03/04/2025 Chronic diastolic heart failure (HCC) 03/04/2025 Echocardiogram 10/2023 demonstrated EF of 60-65% grade 1 diastolic dysfunction, atrial fibrillation, by atrial enlargement difficult study Edema of lower extremity 03/04/2025 Abrasion, left lower leg, in itial encounter 03/04/2025 Chronic kidney disease 03/04/2025 Acute viral syndrome 03/04/2025 Lethargic 03/04/2025 Eczema 03/04/2025 Phimosis 03/04/2025 Exertional dyspnea 03/04/2025 Carrier or suspected carrier of methicillin resistant Staphylococcus aureus 03/04/2025 Cellulitis of right leg 03/04/2025 Diarrhea 03/04/2025 Rectal bleeding 03/04/2025 Depression 03/04/2025 Polyarticular osteoarthritis 03/04/2025 Facial dermatitis 03/04/2025 Physical deconditioning 03/04/2025 Hypotension 03/04/2025 Other pruritus 03/04/2025 Atopic dermatitis, unspecified 03/04/2025 Family History Medical History Relation Name Comments [...] on file Legal Sex Male 11:24 AM RECEP Gender Identity Not on file Sexual Orientation Not on file Last Filed Vital Signs Vital Sign Reading Time Taken Comments Blood Pressure 126/62 04/09/2025 2:31 PM RECEP Pulse 82 04/09/2025 2:31 PM RECEP Temperature 36.3 C (97.3 F) 03/04/2025 10:26 AM CDT Respiratory Rate 18 03/04/2025 10:2 6 AM CDT Oxygen Saturation 96% 04/09/2025 2:3 1 PM RECEP w/O2 Inhaled Oxygen Concentration - - Weight 112 kg (247 lb) 04/09/2025 2:31 PM RECEP per pt (wheelchair) Height 180.3 cm (5' 11) 04/09/2025 2:3 1 PM RECEP Body Mass Index 34.45 04/09/2025 2:31 PM RECEP Plan of Treatment Health Maintenance Due Date Last Done Comments Albumin Creatinine Ratio, Urine 1950 Depression Screening 1950 Fall Risk Assessment 1950 Hepatitis C Screening 1950 Dilated Eye Exam 1950 Foot Exam 1950 Hepatitis B Screening 1966 Well Visit 65+ 2013 eGFR 03/22/2020 03/22/2019, 02/04, 02/22/2019, Additional history exists Hemoglobin A1C 04/14/2024 10/13/2023, 01/06, 09/27/2017, Additional history exists Lipid Panel 10/31/2024 11/01/2023, 09/05, 09/21/2022, Additional history exists Covid-19 Vaccine ( season) 2025 03/06/2024, 06/13/2023, 07/21/2022, Additional history exists Influenza Vaccine (#1) 2025 , 03/10/2023, 03/20/2022, Additional history exists DTaP/Tdap/Td Vaccine (5 - Td or Tdap) 07/21/2032 07/21/2022, 12/09/2020, 06/06/2009, Additional history exists Zoster Vaccine Completed 04/23/2021, 01/04, 12/09/2020, Additional history exists Abdominal Aortic Aneurysm (A AA) Screen Completed 10/16/2023, 08/26/2017, 08/09/2017, Additional history exists Pneumococcal vaccine 65+ Completed 025, 06/29/2016, 03/24/2015, Additional history exists Procedures Procedure Name Priority Date/Time Associated Diagnosis Comments PULMONARY FUNCTION TEST (PFT) Routine 03/04/2025 10:17 AM CDT Chronic obstructive pulmonary disease, unspecified COPD type (HCC) POCT LIPID PANEL Routine 09/27/2023 2:35 PM CDT Lipid screening EGFR STAT 03/22/2019 10:50 AM CDT HEMOGLOBIN A1C Routine 09/27/2017 9:27 PM CDT from Last 3 Months or Most Recently Relevant to Health Maintenance Results * Pulmonary Function Test - (03/04/2025 10:17 AM CDT) FVC PRE 2.54 L [facility] FVC %PRE PRED 62 % [facility] FEV1 PRE 1.00 L [facility] FEV1 %PRE PRED 33 % [facility] FEV1/FVC PRE 39.5 % [facility] Anatomical Region Laterality Modality PFT 03/04/2025 9:55 AM CDT Narrative 03/04/2025 8:41 PM CDT Table formatting from the original result was not included. [facility] Division of Pulmonary & Critical Care Medicine [address] [place] [address]; [place] [facility]; [place] [address]; [phone] Pulmonary Function Laboratory Pulmonary Stress Test Simple/Oxygen Assessment Patient: Mason Keys Date: 03/04/2025 : 1950 Ht: 71 IN Wt: 242 LBS Time (min) Distance (ft)/ Ramsey O2 L/M SpO2 HR Marium* BP FEV1 % Pred Rest: RA 98 81 0 131/78 1.00 33 % Walk/Bike: 1 RA 96 105 3 2 RA 95 112 5 3 4 5 6 min 0 sec Recovery: 1 RA 98 90 3 156/91 1.14 38% 3 RA 98 87 1 *Marium rate of perceived exertion (1-10 dyspnea scale) Yassine, CHEST 2003; [id number] Walk Test Summary: Six Minute Walk Distance: 100 ft Six-minute Walk Work [distance (m) x body wt (kg)]: 3339 kg.m (normal >60,000kg.m) Oxygen required to maintain SpO2 greater than 90% during six minutes of walkin L/M Comments: O2A PATIENT ENDED TEST DUE TO SOB. PATIENT ROLLATOR USED. Interpretation: Breathing room air, SpO2 is normal at rest and during exercise sufficient to increase pulse, SpO2 is stable. On this basis, SpO2 is adequate at rest breathing room air and while walking breathing room air. This level of exercise is associated with no significant change of FEV1. By signing this report, the attending pulmonary physician certifies that he/she has personally reviewed and interpreted the graphic and numerical data associated with this pulmonary function study and has reviewed and /or edited a preliminary draft report and agrees with the written final report. Schedule with follow up appointment PFT performed at:->[facility][1] Adult PFT Lab- [id number] Procedure:->Spirometry Procedure:->Oxygen Assessment Titration Pulmonary Function Test Interpretation SPIROMETRY: There is a decrease in expiratory airflow at all lung volumes. The FEV1 to FVC ratio is reduced. The inspiratory loop is appropriate for the expiratory flow abnormality. PULSE OXIMETRY: See Oxygen Assessment/Cardiopulmonary Exercise Study-Simple Impression: There is a very severe obstructive defect. Compared with most recent study, there has been significant interval worsening of the obstructive ventilatory defect. The attending pulmonary physician certifies a physician presence in the [facility] during the administration of aerosolized bronchodilator. The attending pulmonary physician certifies that he/she has reviewed and interpreted the graphic and numerical data of this pulmonary function study and agrees with the written final report. The lower limit of normal for PaO2 and %HbO2 is age dependent. However, the [facility] Pulmonary Function Laboratory defines hypoxemia as a PaO2 <56 mm Hg or a %HbO2 <89%. Starting on June of 2024 the [facility] Pulmonary Function Laboratory utilizes race neutral GLI Global normative equations. us Puneet Powell MD PFT ORDERABLES Final Result * POCT lipid panel (09/27/2023 2:35 PM CDT) Cholesterol, POC 128 mg/dL HDL, POC 53 mg/dL Triglycerides, POC 314 mg/dL LDL Cholesterol POC 13 mg/dL Chol/HDL Ratio, POC 0.2 Non-HDL Cholesterol, POC 75 mg/dL Cholesterol Total, POC 128 mg/dL Capillary blood 09/27/2023 2 :35 PM CDT Epi Lake MD POINT OF CARE TEST ORDER [place] Final Result * eGFR (03/22/2019 10:50 AM CDT) eGFR 83 mL/min/1.7 3 m2 [facility] Comment: Interpretive Data Reference Interval Normal >/= 90 mL/min/1.73m2 Mildly decreased* 60 - 89 mL/min/1.73m2 Mildly to moderately decreased 45 - 59 mL/min/1.73m2 Moderately to severely decreased 30 - 44 mL/min/1.73m2 Severely decreased 15 - 29 mL/min/1.73m2 Kidney Failure < 15 mL/min/1.73m2 *Relative to young adult level If -Wallisian multiply value by 1.16. Estimated glomerular filtration [...] 10:50 AM CDT 03/22/2019 11:39 AM CDT Notinfile Unknown LAB BLOOD ORDERABLES Final Res ult [facility] [id number] [place] [address] * Hemoglobin A1c (09/27/2017 9:27 PM CDT) Hgb A1C 4.7 4.0 - 5.6 % [facility] Estimated Average Glucose 88 mg/dL [facility] Comment: The ADA recommends reporting an estimated Average Glucose (eAG) with all Hemoglobin A1c results using the equation derived from a study of 507 normal and diabetic adults. Minority populations were underrepresented and children were not included. (Diabetes Care 31:7817-5924, 2008). The eAG is not equivalent to a fasting glucose. Blood specimen (specimen) 09/27/2017 9:27 PM CDT 09/27/2017 9:38 PM CDT Narrative [facility] - 09/27/2017 10:25 PM CDT Александр Espino Jr., MD LAB BLOOD ORDERABLES Fi nal Result [facility] [address] Department [place] [address] from Last 3 Months or Most Recently Relevant to Health Maintenance Insurance [employer] MEDICARE TNA MEDICARE AETNA MEDICARE Advance Directives For more information, please contact: [phone] * Full Code (Latest Code Status on File) Date Activated Date Inactivated Comments 10/24/2017 8:34 PM 2017 4:37 PM Care Teams Rn Ent Relationship Specialty Start Date End Date Cleo Funk DO [facility]7 [facility] [address] [place] [address] PCP - General Family Medicine 03/27/24 Puneet Powell MD [address] [facility] [id number] [place] [address] Consulting Physician Pulmonary Disease 03/04/25 Epi Lake MD [address] [facility] [address] [address] Consulting Physician Cardiology 03/04/25
--- NOTE | 2025-04-09 17:34 | ED.GENADULT ---
HPI - General Adult General Chief complaint: Recheck/Abnormal Lab/Rx <LEANN Patrick - Last Filed: 04/09/25 17:46> Stated complaint: right sided facial swelling <LEANN Patrick - Last Filed: 04/09/25 17:46> Time Seen by Provider: 04/09/25 17:34 <LEANN Patrick - Last Filed: 04/09/25 17:46> Focused HPI: 74 year old male presenting with a subdermal facial mass on the right side. states it began a few days ago as what appeared to be a small pimple. It has since gotten bigger and become more painful with overlying bruise-like discoloration. No oral manifestations. Hx of MRSA. Denies fever/chills, headache, or vision changes. GENERAL: Well-appearing, well-nourished, and in no acute distress. HEAD: Normocephalic, atraumatic. CHEST: Clear to auscultation. ?No respiratory distress. HEART: Regular rate and rhythm.? NEURO: ?Alert and oriented x3. FACE: Right middle cheek with subdermal 2x3in mass with overlying slight bruising, denies oral pain Patient screened in triage and initial orders placed.? ?Additional care and disposition to be based upon?diagnostic testing and treatment. <LEANN Patrick - Last Filed: 04/09/25 17:46> History of Present Illness HPI narrative: Agree with HPI. Patient has had MRSA bacteremia as well as an epidural abscess in the past approximately 6 years ago. Has otherwise been doing well since then from a infectious standpoint. Denies fevers, chills. <Ghassan Morales DO - Last Filed: 04/09/25 21:16> Related Data Home medications: Home Medications ?Medication ?Instructions ?Recorded ?Confirmed ?Last Taken ?Type ferrous sulfate 324 mg (65 mg 324 mg PO DAILY 04/05/19 04/09/25 11/05/24 History iron) tablet,delayed release tamsulosin 0.4 mg capsule (Flomax) 0.4 mg PO HS 04/05/19 04/09/25 11/05/24 History aspirin 81 mg tablet,delayed 81 mg PO HS 05/21/19 04/09/25 11/05/24 History release cetirizine 10 mg tablet 10 mg PO Q12H 08/04/19 04/09/25 11/05/24 History magnesium oxide 400 mg PO BID 03/04/21 04/09/25 11/05/24 History cholecalciferol (vitamin D3) 25 25 mcg PO HS 03/03/23 04/09/25 11/05/24 History mcg (1,000 unit) capsule folic acid 400 mcg tablet 0.4 mg PO DAILY 08/23/23 04/09/25 11/05/24 History omeprazole 40 mg capsule,delayed 40 mg PO DAILY 12/27/23 04/09/25 11/05/24 History release gabapentin 300 mg capsule 300 mg PO BID 01/19/24 04/09/25 11/05/24 History benzonatate 200 mg capsule 200 mg PO TID PRN cough 05/14/24 04/09/25 Unknown History diclofenac sodium 3 % topical gel 1 applic topical ONCE PRN pain 05/20/24 04/09/25 Unknown History hydrocortisone 1 % topical cream 1 applic topical DAILY PRN itching 05/20/24 04/09/25 Unknown History (Anti-Itch (hydrocortisone)) lanolin alcohols-mineral 1 applic topical DAILY 05/20/24 04/09/25 11/05/24 History oil-w.petrolatum-ceresin topical cream (Eucerin topical cream) lidocaine 4 % topical patch 1 patch topical DAILY PRN pain 05/20/24 03/13/25 Unknown History (Lidocaine Pain Relief) triamcinolone acetonide 0.1 % 1 applic topical DAILY 05/20/24 04/09/25 11/05/24 History topical cream budesonide 0.5 mg/2 mL suspension 0.5 mg inhalation BID 10/08/24 04/09/25 11/05/24 History for nebulization ipratropium 0.5 mg-albuterol 3 mg 3 ml inhalation Q6H 10/08/24 04/09/25 11/05/24 History (2.5 mg base)/3 mL nebulization soln Lactobacillus acidophilus 1 tablet PO TID 11/06/24 04/09/25 11/05/24 History pyridoxine (vitamin B6) 100 mg 50 mg PO DAILY 12/06/24 04/09/25 Unknown History tablet acetaminophen 500 mg capsule 325 mg PO PRN fever or pain 03/14/25 Unknown History (Mapap (acetaminophen)) albuterol sulfate 2.5 mg/3 mL mg inhalation PRN shortness of 03/14/25 Unknown History (0.083 %) solution for nebulization breath or wheezing doxycycline hyclate 100 mg capsule 100 mg PO 03/14/25 Unknown History dupilumab 300 mg/2 mL subcutaneous 300 mg subcut WEEKLY 03/14/25 04/09/25 Unknown History pen injector (Dupixent) <LEANN Patrick - Last Filed: 04/09/25 17:46> Allergies/adverse reactions: Allergies Allergy/AdvReac Type Severity Reaction Status Date / Time clindamycin Allergy Intermediate Rash Verified 04/09/25 16:06 levofloxacin Allergy Intermediate Swelling Verified 04/09/25 16:06 of the Eye Penicillins Allergy Intermediate Hives Verified 04/09/25 16:06 scopolamine Allergy Mild Hallucinati Verified 04/09/25 16:06 ng tobramycin Allergy Mild EYE REDNESS Verified 04/09/25 16:06 pepper (genus Capsicum) AdvReac Intermediate Nausea and Verified 04/09/25 16:06 Vomiting dust mites Allergy Swelling Uncoded 03/14/25 15:02 cats AdvReac Mild REDNESS OF Uncoded 03/14/25 15:02 THE EYES/WATERING <LEANN Patrick - Last Filed: 04/09/25 17:46> Review of Systems Review of Systems: Gen.: Denies fevers or chills Eyes: Denies eye pain or visual change ENT: Denies congestion Respiratory: Denies shortness of breath or cough CV: Denies chest pain or palpitations GI: Denies abdominal pain nausea, emesis or diarrhea denies burning, urgency, frequency or hematuria Musculoskeletal: Denies back pain or muscle pain Neuro: Denies numbness, tingling, weakness or focal weakness Skin: As per HPI Except as documented, all other systems reviewed and negative <Ghassan Morales DO - Last Filed: 04/09/25 21:16> [facility] Past Medical History Medical History: Medical History Chronic hypoxic respiratory failure, on home oxygen therapy Chronic kidney disease, stage 3 Chronic anemia Liver cirrhosis secondary to nonalcoholic steatohepatitis (RAYGOZA) Methicillin resistant Staphylococcus aureus infection The patient had a spinal abscess L1-L2 complicated was septicemia and then had 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 On long-term doxycycline. Chronic venous stasis dermatitis of both lower extremities Duodenal ulcer Iron (Fe) deficiency anemia Chronic anticoagulation Deep venous thrombosis Cerebrovascular accident Gastroesophageal reflux disease Chronic obstructive pulmonary disease Benign prostatic hyperplasia Obstructive sleep apnea treated with BiPAP with bleed in oxygen of 2 L Paroxysmal atrial fibrillation Obesity (BMI 30-39.9) Eczema Chronic diastolic heart failure Echocardiogram 10/2023 demonstrated EF of 60-65% grade 1 diastolic dysfunction, atrial fibrillation, by atrial enlargement difficult study Pneumothorax on left <LEANN Patrick - Last Filed: 04/09/25 17:46> Surgical History Surgical History: Surgical History History of cataract extraction with lens replacement History of bilateral hip replacements History of colonoscopy with polypectomy History of tracheostomy Status post excision of lipoma Neck. History of back surgery History of revision of total replacement of hip joint <LEANN Patrick - Last Filed: 04/09/25 17:46> Family History Family History: Family History Mother Family history of cardiovascular disease Family history of coronary artery disease Father Family history of liver disease Sibling Hypertension Cerebrovascular accident Chronic obstructive pulmonary disease <LEANN Patrick - Last Filed: 04/09/25 17:46> Social History Social History: Social History Social History: Surrogate medical decision maker: Trinity Keys (Cathy), spouse. Code status: Full code. Smoking packs per day: 1 Smoking cigarettes per day: 20.0 Years smoked: 9 Smoking pack-years: 9.00 Tobacco type: cigarettes Smokeless tobacco user: chewing tobacco Smoking end date: 06/06/81 Additional smoking assessment comments: He quit smoking when he was told he had COPD. Alcohol intake: current Substance use: never Substance use type: does not use Other substance usage details: Holidays Do You Feel Safe in your Home?: Yes Lack of Transportation: No Lack of Food: Never True Current Housing: I Have Housing Concerned About Future Housing: No Difficulty Paying Gas/Electric Bills: No Difficulty Paying for Meds: No Currently Unemployed: No Education: Bachelor's Degree Difficulty w/ Childcare or Family Care: No Living arrangements: with family Additional living arrangements comments: Lives with spouse in [place]. They have been since 1973. They have a daughter and a son. Occupation/Education: retired Additional occupation/education comments: Retired from [employer]. [place] [employer] . Spiritual care concerns: No Agree to blood products: Yes <LEANN Patrick - Last Filed: 04/09/25 17:46> Exam Narrative: APPEARANCE: No acute distress, nontoxic, resting in bed EYES: EOMI HEENT: Normocephalic, atraumatic, OMM. No dental abnormalities RESPIRATORY: No respiratory distress Clear to auscultation bilaterally with no rhonchi wheezing or rales. CARDIOVASCULAR: Regular rate and rhythm without murmurs rubs or gallops. ABDOMINAL: Soft, nontender, nondistended, no rebound or guarding MUSCULOSKELETAl: Moves all extremities. No clubbing, cyanosis or edema. NEURO: Awake and alert. Following commands, speech normal, no focal deficits SKIN:: 2 x 2 cm area of induration to the right parotid area with overlying ecchymosis and a small amount of tenderness. PSYCHIATRIC: Normal affect/mood, <Ghassan Morales DO - Last Filed: 04/09/25 21:16> Course Vital Signs Vital signs: Vital Signs Temperature 97.6 F 04/09/25 16:04 Pulse Rate 73 04/09/25 16:04 Respiratory Rate 16 04/09/25 16:04 Blood Pressure 115/72 04/09/25 16:04 Pulse Oximetry 100 04/09/25 16:04 Oxygen Delivery Nasal Cannula 04/09/25 16:04 Oxygen Flow Rate 2 04/09/25 16:04 Temperature 97.6 F 04/09/25 17:55 Pulse Rate 77 04/09/25 17:55 Respiratory Rate 17 04/09/25 17:55 Blood Pressure 136/84 04/09/25 17:55 Pulse Oximetry 99 04/09/25 17:55 Oxygen Delivery Nasal Cannula 04/09/25 17:55 Oxygen Flow Rate 2 04/09/25 17:55 <Nicole Villasenor PA - Last Filed: 04/09/25 17:46> Vital Signs Temperature 97.6 F 04/09/25 16:04 Pulse Rate 73 04/09/25 16:04 Respiratory Rate 16 04/09/25 16:04 Blood Pressure 115/72 04/09/25 16:04 Pulse Oximetry 100 04/09/25 16:04 Oxygen Delivery Nasal Cannula 04/09/25 16:04 Oxygen Flow Rate 2 04/09/25 16:04 Temperature 97.6 F 04/09/25 17:55 Pulse Rate 77 04/09/25 17:55 Respiratory Rate 17 04/09/25 17:55 Blood Pressure 136/84 04/09/25 17:55 Pulse Oximetry 99 04/09/25 17:55 Oxygen Delivery Nasal Cannula 04/09/25 17:55 Oxygen Flow Rate 2 04/09/25 17:55 <Ghassan Morales DO - Last Filed: 04/09/25 21:16> Medical Decision Making MDM Narrative Medical decision making narrative: 74-year-old male Presenting for right facial swelling. On initial evaluation patient was in no acute distress afebrile, hemodynamic stable. Differentials include but are not limited to: Parotitis, abscess, dental abscess, sialolithiasis Notable exam findings: Swelling and tenderness over the right parotid gland with some overlying discolored skin, no fluctuance Notable lab findings: Leukocytosis at 13.6. Creatinine elevated at 2 which is slightly increased from baseline. Notable imaging findings: CT soft tissues of the neck revealed mild parotitis Patient was initially given doxycycline. He was subsequently switched to cefuroxime and Flagyl. He will be given prescriptions for cefuroxime, Flagyl, and Bactrim. He was given very strict return precautions for worsening symptoms and was advised to follow-up with his PCP in the next few days for re-evaluation. Patient was agreeable to this plan. Given strict return precautions. <Ghassan Morales DO - Last Filed: 04/09/25 21:16> Medical Records Medical records reviewed: Yes I reviewed the external patient's medical records. <Ghassan Morales DO - Last Filed: 04/09/25 21:16> Vital Signs Vital Signs: Vital Signs Temperature 97.6 F 04/09/25 16:04 Pulse Rate 73 04/09/25 16:04 Respiratory Rate 16 04/09/25 16:04 Blood Pressure 115/72 04/09/25 16:04 Pulse Oximetry 100 04/09/25 16:04 Oxygen Delivery Nasal Cannula 04/09/25 16:04 Oxygen Flow Rate 2 04/09/25 16:04 Temperature 97.6 F 04/09/25 17:55 Pulse Rate 77 04/09/25 17:55 Respiratory Rate 17 04/09/25 17:55 Blood Pressure 136/84 04/09/25 17:55 Pulse Oximetry 99 04/09/25 17:55 Oxygen Delivery Nasal Cannula 04/09/25 17:55 Oxygen Flow Rate 2 04/09/25 17:55 <LEANN Patrick - Last Filed: 04/09/25 17:46> Vital Signs Temperature 97.6 F 04/09/25 16:04 Pulse Rate 73 04/09/25 16:04 Respiratory Rate 16 04/09/25 16:04 Blood Pressure 115/72 04/09/25 16:04 Pulse Oximetry 100 04/09/25 16:04 Oxygen Delivery Nasal Cannula 04/09/25 16:04 Oxygen Flow Rate 2 04/09/25 16:04 Temperature 97.6 F 04/09/25 17:55 Pulse Rate 77 04/09/25 17:55 Respiratory Rate 17 04/09/25 17:55 Blood Pressure 136/84 04/09/25 17:55 Pulse Oximetry 99 04/09/25 17:55 Oxygen Delivery Nasal Cannula 04/09/25 17:55 Oxygen Flow Rate 2 04/09/25 17:55 <Ghassan Morales DO - Last Filed: 04/09/25 21:16> Lab Data Lab results reviewed: Yes I reviewed the patient's lab results. <Ghassan Morales DO - Last Filed: 04/09/25 21:16> Result diagrams: 04/09/25 18:12 04/09/25 19:31 <LEANN Patrick - Last Filed: 04/09/25 17:46> Labs: Lab Results 04/09/25 04/09/25 04/09/25 Range/Units 18:11 18:12 19:31 WBC 13.6 H (4.5-10.0) K/mm3 RBC 4.10 L (4.6-6.20) M/mm3 Hgb 12.3 L (14.0-18.0) g/dL Hct 40.3 L (42.0-52.0) % MCV 98.3 (80-100) fl MCH 30.0 (26-34) pg MCHC 30.5 L (32-36) g/dl RDW 15.0 H (11.5-14.5) % Plt Count 143 L (150-375) k/mm3 MPV 12.6 H (7.4-10.4) fl Immature Gran % (Auto) 1.4 H (0-0.5) % Neut % (Auto) 78.5 H (45.5-73.1) % Lymph % (Auto) 8.5 L (18.3-44.2) % [place] % (Auto) 9.3 H (2.6-8.5) % Eos % (Auto) 1.8 (0-4.4) % Baso % (Auto) 0.5 (0.2-1.2) % Lymph # (Auto) 1.15 (0.9-3.2) K/mm3 [place] # (Auto) 1.3 H (0.1-0.6) K/mm3 Eos # (Auto) 0.3 (0-0.3) K/mm3 Baso # (Auto) 0.1 (0.0-0.1) K/mm3 Abs Immat Gran (auto) 0.19 H (0.00-0.031) K/mm3 Absolute Neuts (auto) 10.7 H (1.3-6.7) K/mm3 Absolute Nucleated RBC 0.000 (0.0-0.012) K/mm3 Nucleated RBC % 0.0 (0.0-0.2) % Sodium 134 L (137-145) mmol/L Potassium 4.5 (3.4-5.0) mmol/L Chloride 94 L (98-107) mmol/L Carbon Dioxide 35 H (22-30) mmol/L Anion Gap 5 (4-12) mmol/L BUN 52 H D (9-20) mg/dL Creatinine 1.69 H 2.00 H (0.7-1.3) mg/dL Estim Creat Clear Calc 43 37 ml/min Estimated GFR 40 L 33 L (59 - ) Glucose 112 H (65-110) mg/dL Calcium 9.8 (8.4-10.2) mg/dL <LEANN Patrick - Last Filed: 04/09/25 17:46> Lab Results 04/09/25 04/09/25 04/09/25 Range/Units 18:11 18:12 19:31 WBC 13.6 H (4.5-10.0) K/mm3 RBC 4.10 L (4.6-6.20) M/mm3 Hgb 12.3 L (14.0-18.0) g/dL Hct 40.3 L (42.0-52.0) % MCV 98.3 (80-100) fl MCH 30.0 (26-34) pg MCHC 30.5 L (32-36) g/dl RDW 15.0 H (11.5-14.5) % Plt Count 143 L (150-375) k/mm3 MPV 12.6 H (7.4-10.4) fl Immature Gran % (Auto) 1.4 H (0-0.5) % Neut % (Auto) 78.5 H (45.5-73.1) % Lymph % (Auto) 8.5 L (18.3-44.2) % [place] % (Auto) 9.3 H (2.6-8.5) % Eos % (Auto) 1.8 (0-4.4) % Baso % (Auto) 0.5 (0.2-1.2) % Lymph # (Auto) 1.15 (0.9-3.2) K/mm3 [place] # (Auto) 1.3 H (0.1-0.6) K/mm3 Eos # (Auto) 0.3 (0-0.3) K/mm3 Baso # (Auto) 0.1 (0.0-0.1) K/mm3 Abs Immat Gran (auto) 0.19 H (0.00-0.031) K/mm3 Absolute Neuts (auto) 10.7 H (1.3-6.7) K/mm3 Absolute Nucleated RBC 0.000 (0.0-0.012) K/mm3 Nucleated RBC % 0.0 (0.0-0.2) % Sodium 134 L (137-145) mmol/L Potassium 4.5 (3.4-5.0) mmol/L Chloride 94 L (98-107) mmol/L Carbon Dioxide 35 H (22-30) mmol/L Anion Gap 5 (4-12) mmol/L BUN 52 H D (9-20) mg/dL Creatinine 1.69 H 2.00 H (0.7-1.3) mg/dL Estim Creat Clear Calc 43 37 ml/min Estimated GFR 40 L 33 L (59 - ) Glucose 112 H (65-110) mg/dL Calcium 9.8 (8.4-10.2) mg/dL <DO Maksim Mujica Last Filed: 04/09/25 21:16> Imaging Data Attestation: I personally reviewed and interpreted this imaging study as follows: <DO Maksim Mujica Last Filed: 04/09/25 21:16> Radiologist's impression: Impressions Soft Tissue Neck CT 04/09/25 19:09 IMPRESSION: There is stranding and edema of the right parotid gland with adjacent subcutaneous stranding and nodule suggestive of right parotiditis. All CT scans at this facility are performed using low dose modulation techniques as appropriate to perform exam including the following: automated exposure control; use of iterative reconstruction technique; adjustment of the mA and/or kV according to patient size (this includes techniques or standardized protocols for targeted exams where dose is matched to indication/reason for exam). <DO Maksim Mujica Last Filed: 04/09/25 21:16> Discharge Plan Discharge Clinical Impression: Acute suppurative parotitis <LEANN Patrick Last Filed: 04/09/25 17:46> Patient Disposition: Home <LEANN Patrick Last Filed: 04/09/25 17:46> Condition: Stable <LEANN Patrick Last Filed: 04/09/25 17:46> Instructions: Antibiotic Form <LEANN Patrick Last Filed: 04/09/25 17:46> Additional Instructions: You were found to have parotitis which is an infection of your parotid gland. Take cefuroxime and Flagyl and bactrim as prescribed. Apply ice packs to the area. Follow-up with your PCP in the next few days for re-evaluation. Return to the ED for worsening swelling despite antibiotics or any other new symptoms. For pain, discomfort or temperature greater than or equal to 100.8 ?F please alternate the following 2 medications as needed. First medication- acetaminophen/Tylenol- 1000mg every 6-8 hours as needed for above indications. Second medication- ibuprofen/Motrin-600mg every 6-8 hours as needed for above indication. <LEANN Patrick - Last Filed: 04/09/25 17:46> Patient Language: Peruvian <LEANN Patrick - Last Filed: 04/09/25 17:46> Prescriptions: New cefuroxime axetil 500 mg tablet 500 mg PO BID 10 Days Qty: 20 0RF metronidazole 500 mg tablet 500 mg PO Q8H 10 Days Qty: 30 0RF sulfamethoxazole-trimethoprim [Bactrim DS] 800-160 mg tablet 1 tablet PO Q12H 10 Days Qty: 20 0RF No Action cholecalciferol (vitamin D3) 25 mcg (1,000 unit) capsule 25 mcg PO HS folic acid 400 mcg tablet 0.4 mg PO DAILY (DME) nebulizer accessories Kit See Rx Instructions .Route Qty: 3 3RF Rx Instructions: As directed doxycycline hyclate 100 mg capsule 100 mg PO albuterol sulfate 2.5 mg /3 mL (0.083 %) solution for nebulization inhalation PRN (Reason: shortness of breath or wheezing) acetaminophen [Mapap (acetaminophen)] 500 mg capsule 325 mg PO PRN (Reason: fever or pain) Dupixent Pen 300 mg/2 mL pen injector 300 mg subcut WEEKLY Patient Comments: Every 2 weeks fluticasone propionate [Allergy Relief (fluticasone)] 50 mcg/actuation spray,suspension 2 spray intranasal DAILY Qty: 48 3RF hydroxyzine HCl 10 mg tablet 10 mg PO TID PRN (Reason: itching) Qty: 90 2RF Rx Instructions: Breakfast, lunch and dinner. baclofen 10 mg tablet See Rx Instructions .ROUTE .COMPLEX Qty: 90 1RF Dose Instruction: TAKE 1 TABLET (10MG) BY MOUTH EVERY DAY AT BEDTIME Rx Instructions: TAKE 1 TABLET (10MG) BY MOUTH EVERY DAY AT BEDTIME pyridoxine (vitamin B6) 100 mg tablet 50 mg PO DAILY hydrocodone-acetaminophen 5-325 mg tablet 1 tablet PO QHS Qty: 30 0RF aspirin 81 mg tablet,delayed release (DR/EC) 81 mg PO HS (DME) Aerochamber MV Spacer See Rx Instructions .Route Qty: 10 0RF Rx Instructions: As directed magnesium oxide 400 mg magnesium capsule 400 mg PO BID omeprazole 40 mg capsule,delayed release(DR/EC) 40 mg PO DAILY benzonatate 200 mg capsule 200 mg PO TID PRN (Reason: cough) spironolactone 25 mg tablet 12.5 mg PO DAILY Qty: 45 3RF metoprolol succinate 50 mg tablet extended release 24 hr 50 mg PO DAILY Qty: 180 3RF budesonide 0.5 mg/2 mL suspension for nebulization 0.5 mg inhalation BID ipratropium-albuterol 0.5 mg-3 mg(2.5 mg base)/3 mL solution for nebulization 3 ml inhalation Q6H ferrous sulfate 324 mg (65 mg iron) Tablet,Delayed Release (Dr/Ec) 324 mg PO DAILY tamsulosin [Flomax] 0.4 mg Capsule 0.4 mg PO HS cetirizine 10 mg Tablet 10 mg PO Q12H gabapentin 300 mg Capsule 300 mg PO BID lidocaine [Lidocaine Pain Relief] 4 % adhesive patch,medicated 1 patch topical DAILY PRN (Reason: pain) triamcinolone acetonide 0.1 % cream 1 applic topical DAILY hydrocortisone [Anti-Itch (HC)] 1 % cream 1 applic topical DAILY PRN (Reason: itching) diclofenac sodium 3 % gel 1 applic topical ONCE PRN (Reason: pain) Eucerin Cream 1 applic topical DAILY Lactobacillus acidophilus 1 tablet PO TID Eliquis 5 mg tablet 5 mg PO BID Qty: 180 1RF Rx Instructions: TAKE 1 TABLET BY MOUTH TWICE A DAY bumetanide 0.5 mg tablet See Rx Instructions .ROUTE .COMPLEX Qty: 180 1RF Dose Instruction: TAKE 1 TABLET BY MOUTH TWICE A DAY Rx Instructions: TAKE 1 TABLET BY MOUTH TWICE A DAY roflumilast 500 mcg tablet See Rx Instructions .ROUTE .COMPLEX Qty: 90 3RF Dose Instruction: TAKE 1 TABLET BY MOUTH EVERY DAY Rx Instructions: TAKE 1 TABLET BY MOUTH EVERY DAY <LEANN Patrick - Last Filed: 04/09/25 17:46> Follow-up/Referrals: Cleo Funk DO [Primary Care Provider, Family Practice] <LEANN Patrick - Last Filed: 04/09/25 17:46>
[2025-04-09 17:55] VITALS: BP 136/84; PULSE 77; RESP 17; TEMP 36.4; O2SAT 99
--- OUTSIDE RECORDS SUMMARY | 2025-04-09 18:16 | XMS_ITS | Clinical Summary ---
Author Organization [facility] Address [address] [facility] [place] [address] Care Team Providers Care Program Director Cable Television Name Role Phone FunkCleo DO Primary Care Provider [phone] Source Comments [facility],non-owned Affiliates and Associated Physician Practices is amultiple site organization consisting of ambulatory clinics and hospital sitesin [place], [place], [place] and [place]. This disclosure is being madepursuant to the Care Everywhere program and may not contain all information available regarding this patient. Last updated 18.[facility] [address] Allergies Active Allergy Reactions Criticality Noted Date Comments Peppers GI Discomfort 10/20/2021 Green and red peppers Levofloxacin Eye Itching 04/24/2019 red around the eyes, puffy, itchy Penicillins Skin Reactions,Swelling Medium 07/14/2017 Scopolamine Other,APPLICATIONS CHEMIST Dysfunction 02/07/2019 delirium Tobramycin Eye Itching 10/23/2019 [...] fluticasone propionate (Flonase) 50 MCG/ACT nasal spray [place] 1 (one) spray into each nostril once [...] Description 04/04/2025 10:15 AM CDT Office Visit [facility] - Orthopedic Surgery [address], [address] [phone] Beka Cleary, SUPERVISOR 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 Primary osteoarthritis of left knee (Primary Dx) 03/19/2025 Travel 03/11/2025 11:00 AM CDT Office Visit [facility] - GI [address] [facility], [place] [phone] Twin Miller MD 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); 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 (HCC); Nonalcoholic steatohepatitis (RAYOGZA); Acute gastric ulcer with hemorrhage; Cirrhosis of liver without ascites, unspecified hepatic cirrhosis type (HCC); Atrial fibrillation, unspecified type (HCC); Lower extremity edema; Frail elderly 03/11/2025 10:06 AM CDT - 03/11/2025 11:59 PM CDT Hospital Encounter [facility] OP DRAW STATION [address] [place] [phone] Twin Miller MD Discharge Disposition: Home or Self Care 03/11/2025 9:30 AM CDT - 03/11/2025 10:05 AM CDT Hospital Encounter [facility] [address] [place] [address] Twin Miller MD Discharge Disposition: Home or [...] Recorded Patient Health Questionnaire-2 Score 0 12/25/2024 [facility] of Occupat ional Health - Occupational Stress [...] on file Legal Sex Male 5:18 PM TAPPER SHANK Gender Identity Not on file Sexual Orientation [...] st Contact Info) Description 07/24/2025 10:15 AM TAPPER SHANK Office Visit [facility] - Orthopedic Surgery [facility] [place] [address] Larry Alexander MD [address] [place] [address] 09/16/2025 10:30 AM CDT Appointment [facility] [address] [place] [phone] Twin Miller MD [address] [facility] 2L [place] [address] 09/16/2025 11:30 AM CDT Office Visit [facility] - GI [address] [facility], [facility] [place] [phone] Twin Miller MD [address] [facility] 2L [place] [address] Health Maintenance Due Date Last Done Comments [...] the bathroom Medical Devices Implanted Type Area Mileage Clerk Device Identifier Shelf Expiration Date Model / Serial / Lot Trident 10 Deg X 3 Insert 36mm Id Implanted:Qty: 1 on 02/08/2019 by Larry Alexander MD at [facility] Hip [employer] 06/23/2021 [id number] [id number] / / [id number] Description:36MM POLYETHYLEN E INSERT C-Taper Cocr Lfit Head 36mm/0 Implanted:Qty: 1 on 02/08/2019 by Larry Alexander MD at [facility] Hip [employer] 02/12/2023 06-3600 / / [id number] Description:LEFT FEMORAL HEA D 36MM Procedures Procedure Name Priority Date/Time Associated Diagnosis Comments MT DRAIN/INJECT LARGE JOINT/BURSA Routine 04/04/2025 12:15 PM [...] HEPATITIS C ANTIBODY Routine 07/14/2017 10:11 PM TAPPER SHANK from Last 3 Months or Most Recently Relevant to Health Maintenance Results * MT DRAIN/INJECT LARGE JOINT/BURSA (04/04/2025 12:15 PM CDT) [...] <2.0 <=8.3 ng/mL 03/11/2025 11:43 AM CDT [facility] Comment: AFP values will vary depending on testing procedure used. Results are not comparable across different methods. AFP values obtained by [facility] using an Farias Alinity Immunoassay. Blood BLOOD SPECIMEN / Unknown Lab Venipuncture / Unknown 03/11/2025 10:15 AM CDT 03/11/2025 10:51 AM CDT Twin Miller MD LAB - CHEMISTRY ORDERA BLES Final Result [facility] [address] [place] [address], [facility] [phone] * (ABNORMAL) PT-INR (03/11/2025 10:15 AM CDT) Pathologist [facility] PT 15.8(H) 12.1 - 14.8 Seconds 03/11/2025 11:07 AM [facility] INR 1.2 See Comment 03/11/2025 11:07 AM [facility] Comment:The suggested therap eutic range for standard coumadin (warfarin) therapy is an INR of 2.0-3.0. For high-risk patients (Mechanical Mitral Valve Prosthesis, etc.), the suggested prophylactic therapeutic range is an INR of 2.5-3.5. Blood BLOOD SPECIMEN / Unknown Lab Venipuncture / Unknown 03/11/2025 10:15 AM CDT 03/11/2025 11:07 AM T us Twin Miller MD LAB - COAGULATION ROYCE KLINE Final Result [facility] [address] [place] [address] [phone] * (ABNORMAL) CBC WITH DIFFERENTIAL (03/11/2025 10:15 AM T) Pathologist [facility] WBC 9.4 4.0 - 10.7 x10E9/L 03/11/2025 11:03 AM [facility] RBC Count 4.28(L) 4.30 - 5.80 x10E12/L 03/11/2025 11:03 AM [facility] Hemoglobin 12.7(L) 13.3 - 17.5 g/dL 03/11/2025 11:03 AM [facility] Hematocrit 40.9 38.7 - 51.1 % 03/11/2025 11:03 AM [facility] MCV 95.6 80.0 - 98.0 fL 03/11/2025 11:03 AM [facility] MCH 29.7 26.7 - 33.6 pg 03/11/2025 11:03 AM [facility] MCHC 31.1(L) 31.7 - 36.3 g/dL 03/11/2025 11:03 AM [facility] RDW-CV 14.4 11.3 - 14.8 % 03/11/2025 11:03 AM [facility] Platelet Count 128(L) 150 - 420 x10E9/L 03/11/2025 11:03 AM [facility] MPV 12.8(H) 7.8 - 11.4 fL 03/11/2025 11:03 AM [facility] Neutrophil % 71.7 41.0 - 74.0 % 03/11/2025 11:03 AM [facility] Lymphocyte % 8.1(L) 17.0 - 47.0 % 03/11/2025 11:03 AM [facility] Monocyte % 10.2 3.0 - 11.0 % 03/11/2025 11:03 AM [facility] Eosinophil % 8.5(H) 0.0 - 7.0 % 03/11/2025 11:03 AM [facility] Basophil % 0.5 0.0 - 1.6 % 03/11/2025 11:03 AM [facility] Immature Granulocytes % 1.0 0.0 - 1.0 % 03/11/2025 11:03 AM [facility] Neutrophil Absolute 6.73 1.60 - 7.50 x10E9/L 03/11/2025 11:03 AM [facility] Lymphocyte Absolute 0.76(L) 1.00 - 4.40 x10E9/L 03/11/2025 11:03 AM [facility] Monocyte Absolute 0.96 0.15 - 1.00 x10E9/L 03/11/2025 11:03 AM [facility] Eosinophil Absolute 0.80(H) 0.00 - 0.60 x10E9/L 03/11/2025 11:03 AM [facility] Basophil Absolute 0.05 0.00 - 0.13 x10E9/L 03/11/2025 11:03 AM [facility] Blood BLOOD SPECIMEN / Unknown Lab Venipuncture / Unknown 03/11/2025 10:15 AM CDT 03/11/2025 10:51 AM CDT us Twin Miller MD LAB - HEMATOLOGY ORDER KEND[place] Final Result [facility] [address] [place] [address], [facility] [phone] * (ABNORMAL) COMPREHENSIVE METABOLIC PANEL (03/11/2025 10:15 AM CDT) BUN 47(H) 7 - 26 mg/dL 03/11/2025 11:59 AM [facility] Creatinine 1.85(H) 0.71 - 1.16 mg/dL 03/11/2025 11:59 AM [facility] Sodium 143 136 - 145 mmol/L 03/11/2025 11:59 AM [facility] Potassium 4.4 3.5 - 4.5 mmol/L 03/11/2025 11:59 AM [facility] Chloride 103 98 - 107 mmol/L 03/11/2025 11:59 AM [facility] CO2 26 22 - 29 mmol/L 03/11/2025 11:59 AM [facility] Glucose 122(H) 70 - 99 mg/dL 03/11/2025 11:59 AM [facility] Calcium 9.4 8.4 - 10.2 mg/dL 03/11/2025 11:59 AM [facility] Protein Total 6.6 6.0 - 8.3 g/dL 03/11/2025 11:59 AM [facility] Albumin 3.5 3.4 - 5.0 g/dL 03/11/2025 11:59 AM [facility] Bilirubin Total 0.7 0.2 - 1.2 mg/dL 03/11/2025 11:59 AM [facility] Alkaline Phosphatase 109 40 - 150 U/L 03/11/2025 11:59 AM [facility] ALT 33 5 - 55 U/L 03/11/2025 11:59 AM [facility] AST 28 5 - 34 U/L 03/11/2025 11:59 AM [facility] Anion Gap 14 6 - 16 03/11/2025 11:59 AM CDT [facility] BUN/Creatinine Ratio 25(H) 7 - 23 03/11/2025 11:59 AM CDT [facility] Osmolality Calculated 310(H) 275 - 295 mOsm/kg 03/11/2025 11:59 AM CDT [facility] Albumin/Globulin Ratio 1.1 1.1 - 2.3 03/11/2025 11:59 AM CDT [facility] eGFR by CKD-EPI 37(L) >=90 mL/min/1.7 3 m2 03/11/2025 11:59 AM CDT [facility] Comment:Estimated Glomerular Filtration Rate (eGFR) calculated using the CKD-EPI Creatinine Equation (2020), per the National Kidney Foundation and [place] Society of Nephrology recommendations. Blood BLOOD SPECIMEN / Unknown Lab Venipuncture / Unknown 03/11/2025 10:15 AM CDT 03/11/2025 10:51 AM CDT us Twin Miller MD LAB - CHEMISTRY ORDERA BLES Final Result [facility] [address] [place] [address], [facility] [phone] * US Abdomen Limited (03/11/2025 10:09 AM CDT) Anatomical Region Laterality Modality Abdomen Ultrasound 03/11/2025 11:3 6 AM CDT Impressions 03/11/2025 12:09 PM CDT Impression: Liver Visualization Score C: Severe limitations. US-1 Negative. Repeat surveillance US in 6 months. 1.Hepatic cirrhosis without discrete hepatic observations. 2.Cholelithiasis without acute cholecystitis. Report dictated by Lg Costello MD, (compensation vice president). > Dictated by Command Post Craftsman I, Marcelo Leon MD have personally reviewed and interpreted this examination/study. > Interpreting Provider: Marcelo Leon MD on 03/11/2025 12:09 PM Narrative 03/11/2025 12:09 PM CDT PROCEDURE: US ABDOMEN LIMITED, DATE/TIME OF EXAM: 03/11/2025 10:09 AM, LOCATION [facility] INDICATION: K75.81: Liver cirrhosis secondary to RAYGOZA [...] DATE/TIME OF EXAM: 03/11/2025 10:09 AM, LOCATION [facility] INDICATION: K75.81: Liver cirrhosis secondary to RAYGOZA [...] cholecystitis. Report dictated by Lg Costello MD, (compensation vice president). > Dictated by Command Post Craftsman I, Marcelo Leon MD have personally reviewed and interpreted this examination/study. > Interpreting Provider: Marcelo Leon MD on 512:09 PM Twin Mikki Miller MD ORDERABLES Final Result * HEPATITIS C ANTIBODY (07/14/2017 10:11 PM TAPPER SHANK) Pathologist [facility] Hepatitis C Antibody Non-react [facility] Comment: Hepatitis C Antibody screen indicates no serologic evidence of past or current infection with Hepatitis C Virus. Patients with unexplained liver disease who are immunocompromised or suspected of having acute Hepatitis C infection may benefit from Nucleic Acid Test (SUNIL) for Hepatitis C Viral RNA to confirm Hepatitis C status. Blood specimen (specimen) BLOOD SPECIMEN / Unknown 07/14/2017 10:11 PM TAPPER SHANK 07/14/2017 10:25 PM TAPPER SHANK us Angela Corona MD LAB - CHEMISTRY ORDERABLES Fin al Result [address] [phone] from Last 3 Months or Most Recently Relevant to Health Maintenance Additional Health Concerns Infection Onset Date Last Indicated MRSA Hx Comment:-nasal screen 09/201709/12/2017 10/17/2023 VRE Hx Comment:-rectal screen 04/201904/29/2019 10/17/2023 Insurance [employer] [facility]ICARE [facility] SELF PAY NO INSURANCE Member Subscriber Plan / Payer (Ef fective for All Dates) Name:Mason Jang Member ID:Not on file Relation to Subscriber:Not on file Name:MASON JANG Subscriber ID:Not on file (Home) Address: [address] [place] [address] Payer ID:Not on file Group ID:Not on file Type:Self Pay Address: [place], [place] AETNA [facility] Care Address: [facility] [id number] [place] [phone] Advance Directives * Full Code (Latest Code [...] 2:01 PM 09/09/2017 2:08 PM Care Teams Program Director Cable Television Relationship Specialty Start Date End Date Cleo Funk DO [address] [facility] [place] [address] PCP - General Family Medicine 05/15/24
--- OUTSIDE RECORDS SUMMARY | 2025-04-09 18:16 | XMS_ITS | Clinical Summary ---
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 Finished Bactrim for stenotrophomonas pneumonia [...] Department Care Team Description 04/09/2025 2:45 PM CONVERTIBLE SOFA BEDSPRING TESTER Office Visit [facility] Cardiology [address] [place] [address] Epi Lake MD Chronic atrial fibrillation (HCC) (Primary Dx) 03/04/2025 11:00 AM CDT Office Visit [facility] Medicine Pulmonary [address] [facility] 8th [place] [address] [place] [address] Alyce Feliz NP Respiratory failure with hypercapnia, unspecified chronicity (HCC) (Primary Dx); Chronic congestive heart failure, unspecified heart failure type (HCC); Dyspnea on exertion; Seasonal allergies; GERD without esophagitis; [place] treated with BiPAP; Immunization counseling 03/04/2025 9:44 AM CDT - 03/04/2025 11:59 PM CDT Hospital Encounter [facility] Pulmonary [address] [facility] [address] [place] [address] Chronic obstructive pulmonary disease, unspecified COPD type [...] thrombocytopenia 03/04/2025 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 03/04/2025 Chronic [...] on file Legal Sex Male 11:24 AM CONVERTIBLE SOFA BEDSPRING TESTER Gender Identity Not on file Sexual Orientation Not on file Last Filed Vital Signs Vital Sign Reading Time Taken Comments Blood Pressure 126/62 04/09/2025 2:31 PM CONVERTIBLE SOFA BEDSPRING TESTER Pulse 82 04/09/2025 2:31 PM CONVERTIBLE SOFA BEDSPRING TESTER Temperature 36.3 C (97.3 F) 03/04/2025 10:26 AM CDT Respiratory Rate 18 03/04/2025 10:2 6 AM CDT Oxygen Saturation 96% 04/09/2025 2:3 1 PM CONVERTIBLE SOFA BEDSPRING TESTER w/O2 Inhaled Oxygen Concentration - - Weight 112 kg (247 lb) 04/09/2025 2:31 PM CONVERTIBLE SOFA BEDSPRING TESTER per pt (wheelchair) Height 180.3 cm (5' 11) 04/09/2025 2:3 1 PM CONVERTIBLE SOFA BEDSPRING TESTER Body Mass Index 34.45 04/09/2025 2:31 PM CONVERTIBLE SOFA BEDSPRING TESTER Plan of Treatment Health Maintenance Due Date [...] 10:17 AM CDT) FVC PRE 2.54 L [facility] FVC %PRE PRED 62 % [facility] FEV1 PRE 1.00 L [facility] FEV1 %PRE PRED 33 % [facility] FEV1/FVC PRE 39.5 % [facility] Anatomical Region Laterality Modality PFT 03/04/2025 9:55 AM CDT Narrative 03/04/2025 8:41 PM CDT Table formatting from the original result was not included. [facility] Division of Pulmonary & Critical Care Medicine [address] [place] [address]; [place] [facility]; [place] [address]; [phone] Pulmonary Function Laboratory Pulmonary Stress Test Simple/Oxygen [...] Schedule with follow up appointment PFT performed at:->[facility] Adult PFT Lab- [facility]-8D Procedure:->Spirometry Procedure:->Oxygen Assessment [...] and %HbO2 is age dependent. However, the [facility] defines hypoxemia as a PaO2 <56 mm Hg or a %HbO2 <89%. Starting on June of [address] [facility] utilizes race neutral GLI [...] mL/min/1.73m2 *Relative to young adult level If -Central African multiply value by 1.16. Estimated glomerular filtration [...] LAB BLOOD ORDERABLES Final Res ult [facility] [address] [place] [address] * Hemoglobin A1c (09/27/2017 9:27 PM CDT) Hgb A1C 4.7 4.0 - 5.6 % [facility] Estimated Average Glucose 88 mg/dL [facility] Comment: The ADA recommends reporting an estimated Average Glucose (eAG) with all Hemoglobin A1c results using the equation derived from a study of 507 normal and diabetic adults. Minority populations were underrepresented and children were not included. (Diabetes Care 31:5333-6411, 2008). The eAG is not equivalent to a fasting glucose. Blood specimen (specimen) 09/27/2017 9:27 PM CDT 09/27/2017 9:38 PM CDT Narrative [facility] - 09/27/2017 10:25 PM CDT Александр Espino Jr., MD LAB BLOOD ORDERABLES Fi nal Result [facility] [address] [place] [address] from Last 3 Months or Most Recently Relevant to Health Maintenance Insurance [employer] MEDICARE TNA MEDICARE [employer]ET[employer] MEDICARE Advance Directives For more information, please contact: [phone] * Full Code (Latest Code Status on File) Date Activated Date Inactivated Comments 10/24/2017 8:34 PM 2017 4:37 PM Care Teams Business Project Analyst Relationship Specialty Start Date End Date Cleo Funk DO [facility] [address] [place] [address] PCP - General Family Medicine 03/27/24 Puneet Powell MD [address] [facility] [phone] [place] [address] Consulting Physician Pulmonary Disease 03/04/25 Epi Lake MD [address] [facility] [address] [address] Consulting Physician Cardiology 03/04/25
[2025-04-09 18:19] LABS: Hematocrit 40.3 % (42.0-52.0); Hemoglobin 12.3 g/dL (14.0-18.0); Immature Granulocyte Percent A 1.4 % (0-0.5); Lymphocytes Absolute Auto 1.15 K/mm3 (0.9-3.2); Mean Corpuscular HGB Conc 30.5 g/dl (32-36); Mean Corpuscular Hemoglobin 30.0 pg (26-34); Mean Corpuscular Volume 98.3 fl (80-100); Nucleated Red Blood Cells Absolute Auto 0.000 K/mm3 (0.0-0.012); Nucleated Red Blood Cells Perc 0.0 % (0.0-0.2); Platelet Count Result 143 k/mm3 (150-375); Red Blood Count 4.10 M/mm3 (4.6-6.20); White Blood Count 13.6 K/mm3 (4.5-10.0)
[2025-04-09 18:31] LABS: Anion Gap 5 mmol/L (4-12); Blood Urea Nitrogen 52 mg/dL (9-20); Calcium 9.8 mg/dL (8.4-10.2); Carbon Dioxide 35 mmol/L (22-30); Chloride 94 mmol/L (98-107); Estimated CRCL calculation 43 ml/min; Estimated Glomerular Filt Rate 40; Glucose 112 mg/dL (65-110); Potassium 4.5 mmol/L (3.4-5.0); Sodium 134 mmol/L (137-145)
[2025-04-09 18:33] LABS: Estimated CRCL calculation 37 ml/min; Estimated Glomerular Filt Rate 33
[2025-04-09] MEDS: DOXYCYCLINE IV 100 MG in SODIUM CHLORIDE 0.9% IV 100 ML IVPB (20:00)
[2025-04-09 21:14] VITALS: BP 129/76; PULSE 80; RESP 25; TEMP 36.7; O2SAT 98
== END 2025-04-09 21:24 | disposition home or self-care (01) ==
PROVIDERS: Emergency Provider Student in an Organized Health Care Education/Training Program; PCP Family Medicine
DX: K11.21 Acute sialoadenitis (principal); J96.11 Chronic respiratory failure with hypoxia; J44.9 Chronic obstructive pulmonary disease, unspecified; Z99.81 Dependence on supplemental oxygen; N18.30 Chronic kidney disease, stage 3 unspecified; I48.0 Paroxysmal atrial fibrillation; I50.32 Chronic diastolic (congestive) heart failure; I87.8 Other specified disorders of veins; K74.60 Unspecified cirrhosis of liver; K75.81 Nonalcoholic steatohepatitis (NASH); D50.9 Iron deficiency anemia, unspecified; K21.9 Gastro-esophageal reflux disease without esophagitis; G47.33 Obstructive sleep apnea (adult) (pediatric); Z96.643 Presence of artificial hip joint, bilateral; Z86.718 Personal history of other venous thrombosis and embolism; Z86.14 Personal history of Methicillin resistant Staphylococcus aureus infection; Z87.891 Personal history of nicotine dependence; Z86.0100 Personal history of colon polyps, unspecified; Z96.1 Presence of intraocular lens; Z98.49 Cataract extraction status, unspecified eye
CPT/HCPCS: 36415; 70491; 80048; 85025; 87040; 96365; 99284; A9270; Q9967